=== PATIENT | female | born 1935 | race Caucasian/White ===

== ENCOUNTER 2018-03-26 10:14 | Emergency (ER) | payer MEDICARE, BC, SELFPAY ==
[2018-03-26 10:15] VITALS: BP 136/94; PULSE 152; RESP 18; TEMP 36.6; O2SAT 95; BMI 25.9
[2018-03-26 10:33] VITALS: BP 123/70; PULSE 154
--- NOTE | 2018-03-26 10:39 | RAD_ITS ---
STUDY: X-RAY CHEST REASON FOR EXAM: Female, 82 years old. Tachycardia. History of A. fib TECHNIQUE: Single AP portable view of the chest. COMPARISON: None. FINDINGS: There is hyperinflation of the lungs consistent with chronic obstructive lung disease (COPD). Lungs are clear. Right chest wall Mediport with tip in the mid SVC. There is no demonstrated pleural abnormality. Normal size heart. Normal mediastinum and valerie. Normal visualized pulmonary arteries. Normal visualized aortic arch and descending thoracic aorta. There are diffuse degenerative changes of the visualized thoracic spine. Normal visualized ribs, clavicles, and shoulders. There is no demonstrated abnormality of the visualized soft tissue structures of the upper abdomen. RAD/Chest 1 View (Portable) IMPRESSION: COPD. Lungs are clear. Electronically Signed: Armando Sun DO at 11:18 EST Tel , Service support ,
--- NOTE | 2018-03-26 10:39 | EKG12_ITS ---
Test Reason : PALPS Blood Pressure : / mmHG Vent. Rate : 141 BPM Atrial Rate : 178 BPM P-R Int : 000 ms QRS Dur : 080 ms QT Int : 320 ms P-R-T Axes : 059 -39 070 degrees QTc Int : 490 ms Atrial fibrillation Left axis deviation Possible Anterior infarct , age undetermined Abnormal ECG Confirmed by SHABBIR PANG, REBECCA ([id number]), editor index ZACH HAMILTON ([id number]) on 03/31/2018 4:51:57 PM Referred By: DC Confirmed By:REBECCA SHEA MD
[2018-03-26] MEDS: dilTIAZem 25 MG/5 ML Vial 10 MG IV BOLUS (10:53)
[2018-03-26 11:03] LABS: Absolute Lymphocyte Count 1.47 X10^3/ul (0.83-4.51); Absolute Neutrophil Count 4.1 X10^3/uL (2.0-7.7); Basophil# 0.02 X10^3/uL; Basophil% 0.3 % (0-1); Eosinophil# 0.06 X10^3/uL; Eosinophils% 0.9 % (0-5); Hematocrit 39.5 % (37-47); Hemoglobin 13.1 g/dl (12.0-15.0); Lymphocyte # 1.47 X10^3/ul (4.0); Lymphocyte % 23.1 % (19-41); Mean Corp Hgb Conc 33.2 g/gl (32-36); Mean Corpuscular Hgb 33.9 pg (27.0-32.0); Mean Corpuscular Volume 102.1 fL (81-99); Mean Platelet Vol. 9.9 fl (6.2-12.0); Neutrophil # 4.11 X10^3/uL (2.7-7.7); Neutrophil % 64.5 % (47-70); Platelet Count 190 K/mm3 (150-450); RBC Distribution Width CV 14.4 % (11.6-14.6); RBC Distribution Width SD 53.2 fl (35.1-43.9); Red Blood Count 3.87 M/mm3 (4.2-5.4); White Blood Count 6.4 K/mm3 (4.4-11.0)
[2018-03-26 11:04] LABS: POSITIVE COUNT NO; POSITIVE DIFFERENTIAL NO; POSITIVE MORPHOLOGY NO
--- NOTE | 2018-03-26 11:06 | EKG12_ITS ---
Test Reason : PALPS Blood Pressure : / mmHG Vent. Rate : 099 BPM Atrial Rate : 099 BPM P-R Int : 176 ms QRS Dur : 082 ms QT Int : 374 ms P-R-T Axes : 032 -33 033 degrees QTc Int : 479 ms Normal sinus rhythm Left axis deviation Cannot rule out Anterior infarct , age undetermined Abnormal ECG Confirmed by SHABBIR PANG, REBECCA ([id number]), photograph editor ZACH HAMILTON ([id number]) on 03/31/2018 5:01:29 PM Referred By: DC Confirmed By:REBECCA SHEA MD
[2018-03-26 11:12] LABS: International Normalized Ratio 1.8; Prothrombin Time (Protime)PT. 20.8 SECONDS (11.7-14.9)
[2018-03-26 11:18] LABS: Anion Gap 9 (5-15); BUN 16 mg/dL (7-18); Chloride 111 mmol/L (98-107); Creatinine, Serum 0.73 mg/dL (0.55-1.02); EST Glomerular Filtration Rate 82 mL/min (>60); Est Glom Filt Rate - Afr Amer 99 mL/min (>60); Glucose 153 mg/dL (74-106); Potassium 3.5 mmol/L (3.5-5.1); Sodium Level 145 mmol/L (136-145)
--- NOTE | 2018-03-26 12:16 | ED.VISSUMM ---
- ER Visit Summary Date of Service: 03/26/18 Chief Complaint: Heart racing History of Present Illness: The patient is a 82 F with heart racing. Her is here at this emergency department being seen as a patient. She has been up all night. Her heart is racing. She denies chest pain or shortness of breath. No nausea or vomiting. She did not take her Coumadin or her rate controlling medication last night. Physical Examination: Afebrile and vital signs unremarkable except for heart rate of 152. She is alert and oriented and mentating well. Skin appears normal. Heart irregularly irregular. Lungs clear. Abdomen soft. Test Results: EKG showed atrial fibrillation at a rate of 141. CBC, BMP, troponin unremarkable. INR 1.8. Chest x-ray shows chronic changes. Emergency Department Course and Treatment: Patient treated with fluid bolus and Cardizem. She also received her dose of warfarin. Her rhythm converted to sinus at a rate of 99, confirmed on EKG. No sign of acute ischemia or infarction pattern. Patient is doing well and will be discharged home. Treatment Plan: As above Disposition: Discharge Impression: 1. Atrial fibrillation with RVR This note was generated with [employer] dictation software. It may contain incorrect words, spelling, and punctuation that were not noted in review of the chart prior to signing ED Disposition - Plan for ED Patient: Chief Complaint: Palpitations Referrals: Galina Sainz MD [Primary Care Provider] -
--- NOTE | 2018-03-26 12:24 | ED.DEP ---
ED Disposition - Plan for ED Patient: Chief Complaint: Palpitations Instructions: ED Afib Referrals: Galina Sainz MD [Primary Care Provider] -
[2018-03-26 12:54] VITALS: BP 124/72; PULSE 95; PULSE 96; RESP 17; RESP 18; O2SAT 98
== END 2018-03-26 13:12 | disposition home or self-care (01) ==
PROVIDERS: Emergency Provider Emergency Medicine; Family Provider Internal Medicine; PCP Internal Medicine
DX: I48.91 Unspecified atrial fibrillation (principal); J44.9 Chronic obstructive pulmonary disease, unspecified; G47.33 Obstructive sleep apnea (adult) (pediatric); Z85.828 Personal history of other malignant neoplasm of skin; Z79.01 Long term (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 anticoagulants; Z79.899 Other long term (current) drug therapy
CPT/HCPCS: 36591; 71045; 80048; 84484; 85025; 85610; 93005; 96361; 96374; 99284; J7040; A4216

== ENCOUNTER 2018-12-17 12:45 | Emergency (ER) | payer MEDICARE, BC, SELFPAY ==
[2018-12-17 12:47] VITALS: BP 112/65; PULSE 72; RESP 16; TEMP 36.6; O2SAT 99; BMI 27.3
--- NOTE | 2018-12-17 15:05 | CT_ITS ---
STUDY: CT BRAIN WITHOUT CONTRAST REASON FOR EXAM: Female, 83 years old. Laceration on scalp status post fall and head injury. On Coumadin. RADIATION DOSAGE (If Supplied By Facility): CTDIvol = ( 60.81 ) mGy, DLP = ( 1089.89 ) mGycm TECHNIQUE: Transaxial CT imaging of the brain was performed without administration of intravenous contrast material. Individualized dose optimization techniques were used for this CT. COMPARISON: No relevant priors. FINDINGS: Normal soft tissue structures. Normal calvarium. Normal size ventricles and extra-axial spaces for the patient's age. There are areas of decreased attenuation within the white matter tracts of the supratentorial brain, consistent with microvascular disease changes. Normal basal ganglia and thalami. Normal brainstem. Normal cerebellum. There is no intracranial hemorrhage. There are no findings of an acute ischemic infarction. Normal visualized paranasal sinuses. CT/Brain/Head without Contrast IMPRESSION: No acute disease. Electronically Signed: Jj Singh MD at 16:34 EDT , Service support ,
--- NOTE | 2018-12-17 15:55 | RAD_ITS ---
STUDY: X-RAY - RIGHT WRIST REASON FOR EXAM: Female, 83 years old. Fell and injured right wrist TECHNIQUE: 3 view(s) of the wrist were obtained. COMPARISON: None. FINDINGS: Normal visualized distal radius and ulna. Normal radiocarpal articulation. Normal distal radioulnar articulation. Normal carpal bones. Normal carpal articulations. There is degenerative arthrosis of the carpometacarpal articulation of the thumb. Normal second through fifth carpometacarpal articulations. Cystic changes noted within the proximal row of the carpal bones. Normal visualized metacarpal bones. The soft tissue structures are unremarkable. RAD/Wrist min 3 Views IMPRESSION: Degenerative changes as above. No fracture noted. Electronically Signed: Jj Singh MD at 16:28 EDT , Service support ,
--- NOTE | 2018-12-17 15:59 | ED.VIS.GEN ---
History of Present Illness Chief Complaint: Laceration Informant: Patient Onset: Today Context: Sudden Onset Timing: Continuous Current Severity: Mild Maximum Severity: Moderate Narrative: The patient presents to the emergency department after mechanical fall. The patient has history of atrial fibrillation and is on Coumadin. She states she got out of her shower today. She was standing with her foot on the ledge of the tub to try it. She lost her balance and fell backwards. She struck the back of her head against the countertop. She landed on her right wrist. She did not lose consciousness, but has had a mild headache since. She is also had increasing pain in the right wrist. She does think that her tetanus is up-to-date. She denies other injury. She states the fall was strictly mechanical. Prior similar symptoms: No Recent Illness/Hospitalization: No Past Medical History - Allergies and Home Meds Allergies/Adverse Reactions: Allergies DESMOND Inhibitors Allergy (Verified 12/17/18 12:47) Unknown ERROR adhesive Allergy (Verified 12/17/18 12:47) Unknown cyclobenzaprine HCl [From Flexeril] Allergy (Verified 12/17/18 12:47) Unknown diclofenac sodium [From Arthrotec] Allergy (Verified 12/17/18 12:47) Unknown hydrochlorothiazide Allergy (Verified 12/17/18 12:47) Unknown lisinopril [From Zestril] Allergy (Verified 12/17/18 12:47) Unknown metronidazole [From Flagyl] Allergy (Verified 12/17/18 12:47) Unknown misoprostol [From Arthrotec] Allergy (Verified 12/17/18 12:47) Unknown naproxen Allergy (Verified 12/17/18 12:47) Unknown paroxetine HCl [From Paxil] Allergy (Verified 12/17/18 12:47) Unknown prednisolone acetate [From Blephamide] Allergy (Verified 12/17/18 12:47) Unknown sulfacetamide sodium [From Blephamide] Allergy (Verified 12/17/18 12:47) Unknown Primary Care Physician: Galina Sainz MD [Primary Care Provider] - 10 Day for suture removal Prior records reviewed: Yes Past Medical History: - - Atrial fibrillation Smoking Status: Never smoker Review of Systems General: Denies: Chills, Fever, Sweats Eyes: Denies: Visual changes - bilaterally, Diplopia ENT: Denies: Rhinorrhea, Sore throat Cardiovascular: Denies: Chest pain, Palpitations Respiratory: Denies: Dyspnea, Cough, Dyspnea on exertion Gastrointestinal: Denies: Abdominal pain, Nausea, Vomiting, Diarrhea, Melena, Hematochezia Genitourinary: Denies: Dysuria, Hematuria, Frequency Musculoskeletal: Denies: Back pain, Extremity Pain Skin: Denies: Rash, Wounds Neurological: Denies: Headache, Weakness, Numbness Physical Exam Vital Signs/Narrative: Vital Signs Temp Pulse Resp BP Pulse Ox 12/17/18 12:47 97.9 F 72 16 112/65 99 Inital Vital Signs reviewed: Yes General: Well nourished, Well developed, No Acute Distress Head: Normocephalic, Trauma, - - 1.5 cm full-thickness laceration in the occiput. No step-off. No crepitus. Eyes: Perrl, EOMI ENT: Moist mucous membranes, No rhinorrhea Neck: Supple, Nontender Cardiovascular: Regular rate, Regular rhythm, No murmurs Respiratory: No distress, CTA bilaterally, Chest nontender Abdomen: Soft, Nontender, Nondistended, Normal bowel sounds Back: Nontender, Normal Inspection Extremities: No edema, Tenderness - Tenderness with small hematoma on the dorsum of the right wrist. No gross deformity. Normal pulses. Skin: Normal color, No rash Neurological: Alert, Oriented x3, Cranial nerves II-XII grossly intact, Normal Strength, Normal Sensation Psychological: Normal affect, Normal Mood Diagnostic/Tx/Re-eval Clinical Impression(s) from Imaging Studies Brain CT 12/17/18 15:05 IMPRESSION: No acute disease. Electronically Signed: Jj Singh MD at 16:34 EDT , Service support , Wrist X-Ray 12/17/18 15:55 IMPRESSION: Degenerative changes as above. No fracture noted. Electronically Signed: Jj Singh MD at 16:28 EDT , Service support , Abnormal Lab Results 12/17/18 16:40 PT 28.4 H INR 2.7 - Medical Decision Making The patient underwent CT imaging and x-rays of the wrist. Both were negative for acute process. Her wound was anesthetized and irrigated. It was closed with 3 farhan. She tolerated this without issue. She will continue Tylenol. She was counseled on wound care and reasons to return. The patient will be discharged home. Impression. 1. 2 cm scalp laceration with repair 2. Right wrist contusion Procedures - Lacerations No standard instances Length: 0.79 in Depth: Skin Shape: Linear Prep: Sterile Conditions, Toni-Clens Laceration repair: Irrigated, Lidocaine with epi, Local Number of Sutures/Farhan: 3 ED Disposition - Plan for ED Patient: Instructions: LACERATION, Scalp Referrals: Galina Sainz MD [Primary Care Provider] - 10 Day for suture removal
[2018-12-17] MEDS: Acetaminophen 500 MG Tablet 1000 MG PO (16:30)
[2018-12-17] MEDS: Lidocaine/Epi/Tetracaine 50 ML 1 APPLIC TOPICAL (16:31)
[2018-12-17 16:56] LABS: International Normalized Ratio 2.7; Prothrombin Time (Protime)PT. 28.4 SECONDS (11.7-14.9)
== END 2018-12-17 17:54 | disposition home or self-care (01) ==
LOC: ED 16:00
PROVIDERS: Emergency Medicine; Emergency Provider Emergency Medicine; Family Provider Internal Medicine; PCP Internal Medicine
DX: S01.01XA Laceration without foreign body of scalp, initial encounter (principal); S60.211A Contusion of right wrist, initial encounter; W18.2XXA Fall in (into) shower or empty bathtub, initial encounter; Y93.9 Activity, unspecified; Y92.9 Unspecified place or not applicable; I48.91 Unspecified atrial fibrillation; Z79.01 Long term (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 anticoagulants; Z79.899 Other long term (current) drug therapy
CPT/HCPCS: 12001; 36415; 70450; 73110; 85610; 99283

== ENCOUNTER 2019-08-07 11:48 | Emergency (ER) | payer MEDICARE, BC, SELFPAY ==
[2019-08-07 11:49] VITALS: BP 150/76; PULSE 69; RESP 16; TEMP 36.5; O2SAT 97; BMI 29.2
--- NOTE | 2019-08-07 11:59 | CT_ITS ---
STUDY: CT CERVICAL SPINE WITHOUT CONTRAST REASON FOR EXAM: Female, 84 years old. FALL X1 DAY AGO -- CONTUSIONS TO LEFT SIDE OF FACE RADIATION DOSAGE (If Supplied By Facility): CTDIvol = ( 15.07 ) mGy, DLP = ( 266.22 ) mGycm TECHNIQUE: High resolution transaxial imaging was performed without contrast material. Sagittal and coronal images were reconstructed. Individualized dose optimization techniques were used for this CT. COMPARISON: None FINDINGS: Ossified ossiculum terminale. Normal atlantooccipital articulation. Pronounced narrowing the predental space. Normal lateral atlantoaxial articulations. Degenerative cysts in the anterior aspect of the odontoid process. Normal cervical lordosis. Normal vertebral bodies and posterior osseous elements. C2-3: Normal endplates. Normal disc height and morphology. Normal central canal and intervertebral neuroforamina. C3-4: Normal endplates. Normal disc height and morphology. Normal central canal and intervertebral neuroforamina. C4-5: Normal endplates. Normal disc height. Small posterior marginal spurs. Prominent right posterior marginal spurs encroaching on the neural foramen. This is causing moderate stenosis of the right intervertebral neural foramen. Normal central canal and left intervertebral neural foramen. C5-6: Normal endplates. Mild disc space narrowing. Small anterior marginal spurs. Normal central canal and intervertebral neural foramina. C6-7: Normal endplates. Mild disc space height narrowing. Normal central canal and intervertebral neural foramina. C7-T1: Normal endplates. Normal disc height and morphology. Normal central canal and intervertebral neuroforamina. Normal visualized soft tissue structures. CT/Spine Cervical without Contras IMPRESSION: 1. No CT evidence of acute fracture or malalignment of the cervical spine and the craniocervical junction. 2. Moderate stenosis of the right C4-C5 intervertebral neural foramen due to prominent right posterior marginal spurs. 3. Moderate C6-C7 disc space narrowing. 4. Prominent right anterior marginal spur extending anteriorly to the right side of the esophagus. 5. Prominent anterior marginal spur C5-C6 disc level causing mild displacement of the cervical esophagus. Electronically Signed: Benjamin Cash MD at 13:53 EDT , Service support ,
--- NOTE | 2019-08-07 11:59 | CT_ITS ---
STUDY: CT BRAIN WITHOUT CONTRAST REASON FOR EXAM: Female, 84 years old. FALL X1 DAY AGO -- CONTUSIONS TO LEFT SIDE OF FACE RADIATION DOSAGE (If Supplied By Facility): CTDIvol = ( 44.99 ) mGy, DLP = ( 812.98 ) mGycm TECHNIQUE: Transaxial CT imaging of the brain was performed without administration of intravenous contrast material. Coronal and sagittal reconstructions were performed. Individualized dose optimization techniques were used for this CT. COMPARISON: CT head without contrast 12/17/2018. FINDINGS: Left inferior periorbital soft tissue emphysema but no acute fractures of the left orbital fossa. There is an old blowout fracture of the left medial orbital wall. Normal calvarium. Normal size ventricles and extra-axial spaces for the patient''s age. Small areas of hypodensities in the white matter of the cerebral hemispheres are chronic white matter ischemic changes and unchanged. Normal basal ganglia and thalami. Normal brainstem. Normal cerebellum. There is no intracranial hemorrhage. There are no findings of an acute ischemic infarction. Normal visualized paranasal sinuses. CT/Brain/Head without Contrast IMPRESSION: 1. No CT evidence of intracranial bleeding, acute ischemic infarct or acute intracranial abnormality. 2. Left inferior periorbital soft tissue emphysema but no acute fractures of the left orbital fossa. There is, however, an old blowout fracture of the left medial orbital wall. Electronically Signed: Benjamin Cash MD at 12:55 EDT , Service support ,
--- NOTE | 2019-08-07 11:59 | CT_ITS ---
STUDY: CT FACIAL BONES WITHOUT CONTRAST REASON FOR EXAM: Female, 84 years old. FALL X1 DAY AGO -- CONTUSIONS TO LEFT SIDE OF FACE RADIATION DOSAGE (If Supplied By Facility): CTDIvol = ( 29.38 ) mGy, DLP = ( 562.15 ) mGycm TECHNIQUE: The patient was scanned in a multi detector CT scanner. Sagittal and coronal images were reconstructed. Individualized dose optimization techniques were used for this CT. COMPARISON: None. FINDINGS: Normal soft tissue structures. Left inferior periorbital soft tissue air emphysema and left medial orbital wall air emphysema. They are secondary to an acute blowout fracture of the left medial orbital wall. The orbital floor is intact. No other acute fractures of the maxillofacial bones. The mandible is intact. Normal nasal bones and anterior nasal spine. Deformity in the left posterior ethmoid sinus due to acute blowout fracture of the left medial orbital wall. The paranasal sinuses are otherwise normal. CT/Sinus/Facial Bone IMPRESSION: 1. Acute blowout fracture of the left medial orbital wall causing left orbital emphysema. 2. No other acute fractures of the maxillofacial bones. Electronically Signed: Benjamin Cash MD at 13:33 EDT , Service support ,
--- NOTE | 2019-08-07 12:01 | ED.VIS.GEN ---
History of Present Illness Chief Complaint: Fall Informant: Patient Onset: Yesterday Narrative: Patient states that yesterday evening she is carrying a laundry basket turn off the light and tripped and fell. Struck her face on the hard ground. No loss of conscious. She is on Coumadin for A. fib. Last INR was 2.3 and she checks it at home. She broke her glasses. She notes a headache and some neck stiffness particularly some neck pain the midline to the right. Painful to drive on the way here. She notes tenderness along the left periorbital region and mandible. She denies any dental pain. She had a bloody nose but states that is better. Past Medical History - Allergies and Home Meds Allergies/Adverse Reactions: Allergies DESMOND Inhibitors Allergy (Verified 08/07/19 11:49) Unknown ERROR adhesive Allergy (Verified 08/07/19 11:49) Unknown cyclobenzaprine HCl [From Flexeril] Allergy (Verified 08/07/19 11:49) Unknown diclofenac sodium [From Arthrotec] Allergy (Verified 08/07/19 11:49) Unknown hydrochlorothiazide Allergy (Verified 08/07/19 11:49) Unknown lisinopril [From Zestril] Allergy (Verified 08/07/19 11:49) Unknown metronidazole [From Flagyl] Allergy (Verified 08/07/19 11:49) Unknown misoprostol [From Arthrotec] Allergy (Verified 08/07/19 11:49) Unknown naproxen Allergy (Verified 08/07/19 11:49) Unknown paroxetine HCl [From Paxil] Allergy (Verified 08/07/19 11:49) Unknown prednisolone acetate [From Blephamide] Allergy (Verified 08/07/19 11:49) Unknown sulfacetamide sodium [From Blephamide] Allergy (Verified 08/07/19 11:49) Unknown Primary Care Physician: Justice Scott MD [STAFF PHYSICIAN] - (call to arrange follow up for the middle of next week) Smoking Status: Never smoker Review of Systems General: Denies: Chills, Fever, Sweats Eyes: Denies: Visual changes - bilaterally, Diplopia ENT: Reports: - - facial pain. Denies: Rhinorrhea, Sore throat Cardiovascular: Denies: Chest pain, Palpitations Respiratory: Denies: Dyspnea, Cough, Dyspnea on exertion Gastrointestinal: Denies: Abdominal pain, Nausea, Vomiting, Diarrhea, Melena, Hematochezia Genitourinary: Denies: Dysuria, Hematuria, Frequency Musculoskeletal: Reports: Neck pain. Denies: Back pain, Extremity Pain Skin: Denies: Rash, Wounds Neurological: Reports: Headache. Denies: Weakness, Numbness Physical Exam Vital Signs/Narrative: Vital Signs Temp Pulse Resp BP Pulse Ox 08/07/19 11:49 97.7 F L 69 16 150/76 H 97 Inital Vital Signs reviewed: Yes General: Well nourished, Well developed, No Acute Distress Head: Normocephalic, Trauma - There is a large amount of swelling and contusion in the left periorbital region extending down onto the left maxillofacial area. There is associated abrasions. Eyes: Perrl, EOMI, - - There is no hyphema or subconjunctival hemorrhage. ENT: Moist mucous membranes, No rhinorrhea, - - No septal hematoma. There is no malocclusion. Neck: Supple, - - Tender to palpation in the midline and right paraspinal musculature. Cardiovascular: Regular rate, Regular rhythm, No murmurs Respiratory: No distress, CTA bilaterally, Chest nontender Abdomen: Soft, Nontender, Nondistended, Normal bowel sounds Back: Nontender, Normal Inspection Extremities: Nontender, No edema Skin: Normal color, No rash Neurological: Alert, Oriented x3, Cranial nerves II-XII grossly intact, Normal Strength, Normal Sensation Psychological: Normal affect, Normal Mood Diagnostic/Tx/Re-eval - Medical Decision Making CT brain showed no intracranial hemorrhage. CT of the neck showed no acute neck fracture. CT of the facial bones demonstrates a acute blowout fracture of the left medial orbital wall causing some orbital emphysema. No other fractures were noted. Please see the radiologist dictation for that. The patient sees Dr. Scott. He is java j2ee application developer this week and I spoke with him. He is happy to follow-up with her in the middle of next week. She is to call him if any vision changes occur. He would like her to be placed on Keflex. She will check her INR on Friday. ED Disposition - Plan for ED Patient: Disposition: Home or Assisted Living Diagnosis: Anticoagulated on Coumadin, Fall, Closed medial orbital wall fracture, Facial contusion Instructions: ED BLOWOUT FRACTURE Prescriptions: Cephalexin [Keflex] 500 mg PO Q6 #28 cap Prescription Printed Referrals: Justice Scott MD [STAFF PHYSICIAN] - (call to arrange follow up for the middle of next week) Additional Instructions: Dr. Scott wanted to relay to you that should you have any problems with your vision or feel like something is worsening to please call the office and they can get you instructions on how to speak with him.
[2019-08-07 14:26] VITALS: RESP 18; O2SAT 98
== END 2019-08-07 14:38 | disposition home or self-care (01) ==
PROVIDERS: Emergency Provider Emergency Medicine; PCP Internal Medicine
DX: S02.832A Fracture of medial orbital wall, left side, initial encounter for closed fracture (principal); R04.0 Epistaxis; M43.6 Torticollis; M54.2 Cervicalgia; W01.10XA Fall on same level from slipping, tripping and stumbling with subsequent striking against unspecified object, initial encounter; Y93.E2 Activity, laundry; Y92.9 Unspecified place or not applicable; Y99.9 Unspecified external cause status; I48.91 Unspecified atrial fibrillation; Z79.01 Long term (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 anticoagulants; Z79.899 Other long term (current) drug therapy; Z88.8 Allergy status to other drugs, medicaments and biological substances; Z88.1 Allergy status to other antibiotic agents
CPT/HCPCS: 70450; 70486; 72125; 99282

== ENCOUNTER → 2019-12-23 09:00 | Outpatient (CLI) | payer MEDICARE, BC, SELFPAY | PROVIDERS: PCP Internal Medicine; Referring Provider Internal Medicine; Visit Provider Internal Medicine | DX: Z20.828 Contact with and (suspected) exposure to other viral communicable diseases (principal); R50.9 Fever, unspecified; R19.7 Diarrhea, unspecified; R05 Cough | CPT/HCPCS: 87635; C9803; U0003 ==

== ENCOUNTER 2020-05-05 18:57 | Emergency (ER) | payer MEDICARE, BC, SELFPAY ==
[2020-05-05 18:57] VITALS: BP 143/63; PULSE 82; RESP 18; TEMP 36.3; O2SAT 97; BMI 29.5
--- NOTE | 2020-05-05 19:20 | US_ITS ---
STUDY: VENOUS DOPPLER ULTRASOUND - LEFT LOWER EXTREMITY REASON FOR EXAM: Female, 84 years old. LT LEG SWELLING WHICH HAS GONE DOWN. TECHNIQUE: Ultrasound evaluation of the deep vein system to include flores-scale imaging and compression was performed. Flores-scale imaging and Doppler sonographic evaluation, including duplex spectral analysis and qualitative color flow sonography, was performed. COMPARISON: None. FINDINGS: Common Femoral Vein: Normal compression, spontaneity and augmentation. Normal color Doppler. Common Femoral Vein/Greater Saphenous Junction: Normal compression Deep Femoral Vein: Not visualized Femoral Proximal: Normal compression Femoral Middle: Normal compression, spontaneity and augmentation. Normal color Doppler. Femoral Distal: Normal compression Popliteal Vein: Normal compression, spontaneity and augmentation. Normal color Doppler. Posterior Tibial Vein: Normal compression Peroneal Vein: Normal compression US/Venous Duplex Imag/Limited/Uni IMPRESSION: Normal venous Doppler ultrasound of the lower extremity. Electronically Signed: Debby Jiménez MD at 21:06 EST , Service support ,
--- NOTE | 2020-05-05 19:28 | ED.VISSUMM ---
- ER Visit Summary Date of Service: 05/05/20 Chief Complaint: Left leg swelling History of Present Illness: The patient is a 84 F presenting with left leg swelling. Patient states this started around 4 days ago. She noticed swelling of her left ankle. She denies injury. She states that her ankle swelling is actually much improved now compared to the last couple of days. She saw her primary care physician today and they sent outpatient blood work. Her D-dimer was elevated and she was advised to come to the ED for evaluation. She denies chest pain or shortness of breath. She is on Coumadin for history of A. fib. Physical Examination: Vitals are stable. Patient is afebrile. Alert no acute distress. HEENT exam is unremarkable. Neck is supple. Lungs are clear and equal bilaterally. Heart is regular rate and rhythm. Extremities mild swelling left ankle with no tenderness. Normal pulses. No warmth or erythema. Active full range of motion. Skin is warm and dry. No focal neurologic deficit. Remainder of exam is unremarkable. Emergency Department Course and Treatment: INR 3.3. Venous Doppler left lower extremity shows normal venous Doppler ultrasound of the lower extremity. Patient is advised to follow-up with her primary care physician. Advised return to ED for worsening complaints. Disposition: Discharge home Impression: Mild left lower extremity swelling This note was generated with [employer] dictation software. It may contain incorrect words, spelling, and punctuation that were not noted in review of the chart prior to signing ED Disposition - Plan for ED Patient: Instructions: ED Peripheral Edema, Unilateral Referrals: Galina Sainz MD [Primary Care Provider] -
[2020-05-05 19:58] LABS: International Normalized Ratio 3.3; Prothrombin Time (Protime)PT. 33.2 SECONDS (11.7-14.9)
--- NOTE | 2020-05-05 21:08 | ED.DEP ---
ED Disposition - Plan for ED Patient: Instructions: ED Peripheral Edema, Unilateral Referrals: Galina Sainz MD [Primary Care Provider] -
== END 2020-05-05 21:21 | disposition home or self-care (01) ==
PROVIDERS: Emergency Provider Emergency Medicine; PCP Internal Medicine
DX: M79.89 Other specified soft tissue disorders (principal); I48.91 Unspecified atrial fibrillation; R60.0 Localized edema; R06.9 Unspecified abnormalities of breathing; R79.89 Other specified abnormal findings of blood chemistry; Z79.01 Long term (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 anticoagulants; Z79.899 Other long term (current) drug therapy
CPT/HCPCS: 36415; 83880; 85379; 85610; 93971; 99282

== ENCOUNTER → 2020-05-05 | Outpatient (CLI) | payer MEDICARE, BC, SELFPAY ==
[2020-05-05 16:57] LABS: BNP,B-Type NATRIURETIC PEPTIDE 77.1 pg/mL (0-100)
[2020-05-05 17:39] LABS: D-Dimer Quantitative (DVT/PE) 2.06 FEU/ug/m (0.27-0.49)
== END | disposition home or self-care (01) ==
LOC: LABSPEC 16:00
PROVIDERS: PCP Internal Medicine; Referring Provider Nurse Practitioner; Visit Provider Nurse Practitioner
DX: R60.0 Localized edema (principal); R06.9 Unspecified abnormalities of breathing
CPT/HCPCS: 83880; 85379

== ENCOUNTER 2021-07-02 23:21 | Emergency (ER) | payer MEDICARE, BC, SELFPAY ==
[2021-07-02 23:21] VITALS: BP 114/51; PULSE 67; RESP 17; TEMP 36.2; O2SAT 99; BMI 28.4
--- NOTE | 2021-07-02 23:57 | ED.VIS.GI ---
HPI HPI - GI History of Present Illness Chief Complaint: Abd Pain Informant: patient Abdominal Pain/Flank Pain Onset: Days Context: Gradual Onset Timing: Intermittent Quality: Aching Location: RUQ Current Severity: Mild Maximum Severity: Mild Worsened by: Food Relieved by: Nothing Nausea/Vomiting/Emesis GI Symptom: Positive for Nausea; Negative for Vomiting Onset: Today and Days Severity: Mild Diarrhea/Melena/Hematochezia GI Symptom: Negative for Diarrhea, Melena and Hematochezia Associated Symptoms Associated Symptoms: Negative for Dysuria, Frequency and Hematuria Narrative Narrative: 85-year-old female known history of gallstones. Also history of A. fib on Coumadin. Prior appendectomy. Prior oophorectomy. Prior partial bowel resection due to diverticulitis. History of prior breast cancer with bilateral mastectomies. States her last several day starting Friday night she has had abdominal pain which is primarily right upper quadrant. Associated nausea without vomiting nor diarrhea. She initially was on Macrobid for a UTI recently but urine culture came back negative so they stopped her antibiotic. She said after she ate her pain got worse on Friday and again today. Says she has had increasing belching. She has had bowel movements. A low-grade temperature 99.4. Prior similar symptoms: No Recent Illness/Hospitalization: No PFSH PFS Medical History (Updated 07/03/21 @ 04:[address] Ronak Alexandre MD) Breast CA Home Medications L.acidoph, paracasei,B. lactis 1 ea PO DAILY 08/30/14 [History Last Taken Unknown] acetaminophen 1,000 mg PO Q4H PRN PRN 08/30/14 [History Last Taken Unknown] calcium citrate-vitamin D3 1 ea PO BID 08/30/14 [History Last Taken Unknown] docusate sodium [Colace] 100 mg PO DAILY PRN 08/30/14 [History Last Taken Unknown] estradiol [Estrace Vaginal Cream] 1 g VAGINAL QODAY 08/30/14 [History Last Taken Unknown] folic acid 1 mg PO DAILY@0800 08/30/14 [History Last Taken Unknown] gabapentin 600 mg PO DAILY 08/30/14 [History Last Taken Unknown] methotrexate sodium 20 mg PO Q7D 08/30/14 [History Last Taken Unknown] methylcellulose 4000cps (bulk) 2 tab PO DAILY 08/30/14 [History Last Taken Unknown] metoprolol tartrate 25 mg PO BID 08/30/14 [History Last Taken Unknown] multivitamin with folic acid [Thera] 1 tab PO DAILY 08/30/14 [History Last Taken Unknown] tramadol 50 mg PO Q6H PRN PRN 08/30/14 [History Last Taken Unknown] warfarin [Coumadin ([facility])] 1 mg PO SUMOWETHSA 08/30/14 [History Last Taken Unknown] warfarin [Coumadin] 1.5 mg PO TUFR 08/30/14 [History Last Taken Unknown] atorvastatin 10 mg PO QHS 03/26/18 [History Last Taken Unknown] biotin 5 mg PO DAILY 03/26/18 [History Last Taken Unknown] diclofenac sodium [Voltaren] 100 g TP 03/26/18 [History Last Taken Unknown] melatonin 10 mg PO QHS 03/26/18 [History Last Taken Unknown] tamoxifen 20 mg PO DAILY 03/26/18 [History Last Taken Unknown] triamcinolone acetonide [Nasacort Aq Nasal [place]] 2 spray NASAL DAILY 03/26/18 [History Last Taken Unknown] turmeric root extract 500 mg PO DAILY 03/26/18 [History Last Taken Unknown] cephalexin 500 mg PO Q6 #28 cap 08/07/19 [Rx Last Taken Unknown] Allergy/AdvReac Type Severity Reaction Status Date / Time DESMOND Inhibitors Allergy Unknown Verified 07/02/21 23:24 adhesive Allergy Unknown Verified 07/02/21 23:24 cyclobenzaprine HCl Allergy Unknown Verified 07/02/21 23:24 [From Flexeril] diclofenac sodium Allergy Unknown Verified 07/02/21 23:24 [From Arthrotec] hydrochlorothiazide Allergy Unknown Verified 07/02/21 23:24 lisinopril [From Zestril] Allergy Unknown Verified 07/02/21 23:24 metronidazole [From Flagyl] Allergy Unknown Verified 07/02/21 23:24 misoprostol [From Arthrotec] Allergy Unknown Verified 07/02/21 23:24 naproxen Allergy Unknown Verified 07/02/21 23:24 paroxetine HCl [From Paxil] Allergy Unknown Verified 07/02/21 23:24 prednisolone acetate Allergy Unknown Verified 07/02/21 23:24 [From Blephamide] sulfacetamide sodium Allergy Unknown Verified 07/02/21 23:24 [From Blephamide] Surgical History (Updated 07/03/21 @ 00:33 by Rocky Mejia) H/O mastectomy Social History Smoking Status: Never smoker ROS ROS ED ROS Narrative Abdominal pain. Nausea. Review of Systems ROS Unobtainable: Denies due to encephalopathy Constitutional Constitutional ED: Reports fever(s) and subjective ENT ENT ED: Denies ear pain Cardiovascular Cardiovascular: Denies chest pain Respiratory/Chest Respiratory/Chest: Denies dyspnea Gastrointestinal Gastrointestinal: Reports abdominal pain and nausea; Denies constipation, diarrhea or vomiting Genitourinary Genitourinary ED: Denies dysuria Musculoskeletal Musculoskeletal: Denies myalgias Integumentary Denies rash Neurologic Neurologic: Denies headache(s) Psychiatric Psychiatric: Denies depression Endocrine Endocrinology: Denies polyuria Hematologic/Lymphatic Hematologic/Lymphatic: Denies easy bruising Allergic/Immunologic Allergic/Immunologic ED: Denies urticaria EXAM Physical Exam Narrative Exam Narrative: 85-year-old female no acute distress. Vital signs stable afebrile. H EENT exam unremarkable. Moist extremities. Lungs are clear. Heart regular rate about 67. No murmur. Abdomen soft nondistended. Tender in the right upper quadrant. No organomegaly or masses. No peritoneal signs. Right lower quadrant left side are unremarkable. Moving all 4 extremities. Nontender no edema. Neurologically awake and alert. No focal motor deficits. Const Vital Signs: 07/02/21 23:21 07/03/21 03:13 Temperature 97.2 F L Temperature Source Temporal Pulse Rate 67 64 Respiratory Rate 17 16 Blood Pressure 114/51 L 117/57 L Blood Pressure Mean 72 77 Pulse Ox 99 96 Oxygen Delivery Method Room Air Room Air Positive well nourished and well developed; Negative for cachectic, contractures or unkempt General Appearance ED: well developed and NAD; Negative for unkempt, cachectic, contractures or pallor Nutritional Appearance: Negative for cachectic HEENT Reports moist mucous membranes normocephalic and atraumatic; Negative for trauma or tenderness Eyes PERRL and EOMs intact bilaterally General Eye ED: Negative for pale conjunctiva or scleral icterus Neck no lymphadenopathy, supple and no JVD Resp normal respiratory effort and clear to auscultation bilaterally Auscultation: Negative for rales, rhonchi or wheezes Cardio regular rate, regular rhythm, S1 normal heart sound, S2 normal heart sound and no murmurs GI non-distended and no masses; Negative for non-tender Inspection: Negative for abdominal distention Auscultation: normoactive bowel sounds; Negative for hyperactive bowel sounds or hypoactive bowel sounds Palpation: soft and tender; Negative for guarding, rigid or rebound tenderness present Back/Spine no CVA tenderness General Back: Negative for CVA tenderness Extremity full ROM General Extremety ED: Negative for edema or tenderness General Extremity: Negative for edema Neuro Sensorium / Orientation: alert, oriented to person, oriented to place and oriented to time; Negative for orientation impaired Motor Exam: strength 5/5 throughout Psych mental status grossly normal and thought process normal Appearance: Negative for unkempt Skin no wounds General Skin Exam: Negative for jaundice or pallor Lesions: no lesions Rashes: no rashes MDM MDM MDM Narrative Medical decision making narrative: 85-year-old with abdominal pain primarily right upper quadrant consistent with possible biliary colic, obstruction or cholecystitis. CAT scan and labs are being obtained. Patient states she took Tylenol at home. Her pain is resolved. She does not want any thing for pain at this time. Multiple repeat exams patient's abdomen remains benign. There are no peritoneal signs. She been given nothing for pain here. Repeat exam at 4:40 AM her abdomen is benign. She is pain-free. We discussed all of her test results. I discussed with her being admitted and being evaluated by a surgeon. She sees Dr. Javier Turk of the [facility]. She wants to follow-up with him and does not want to be admitted. She knows to return if she has increasing pain, fever or vomiting. We discussed her gallstones and this was most likely a gallbladder attack. She may need a cholecystectomy or even an ERCP if she gets gallstones lodged in the duct. She understand this and wants to be discharged. Lab Data Attestation: I reviewed the patient's lab results. Lab results narrative: CBC shows a white count 9.7. H&H 9.3 and 29.2. Platelets of 160. Electrolytes unremarkable gap of 6 normal BUN and creatinine. Glucose 114. Liver enzymes total bilirubin elevated 2.3. Direct elevated 1.82. Alk phos elevated at 143. AST of 87. Lipase is normal at 260. Patient did tell me she recently had elevated liver enzymes from medication she had been on. Her PT/INR is elevated at 35 and 3.6. She will be told to hold her Coumadin and have it rechecked this week before restarting it. Labs: Laboratory Results - last 24 hr 07/03/21 07/03/21 07/03/21 00:26 00:26 01:23 WBC 9.7 RBC 3.10 L Hgb 9.3 L Hct 29.2 L MCV 94.2 MCH 30.0 MCHC 31.8 L RDW Std Deviation 54.8 H RDW Coeff of Laureen 15.9 H Plt Count 160 MPV 9.2 Immature Gran % (Auto) 0.500 Neut % (Auto) 77.6 H Lymph % (Auto) 9.9 L [place] % (Auto) 10.2 H Eos % (Auto) 1.4 Baso % (Auto) 0.4 Absolute Neuts (auto) 7.5 Absolute Lymphs (auto) 0.96 Nucleated RBC % 0 PT INR Sodium 137 Potassium 4.0 Chloride 106 Carbon Dioxide 25.0 Anion Gap 6 BUN 11 Creatinine 0.85 Estim Creat Clear Calc 46.12 Est GFR (MDRD) Af Amer 81 Est GFR (MDRD) Non-Af 67 BUN/Creatinine Ratio 12.9 Glucose 114 H Calcium 8.7 Total Bilirubin 2.30 H Direct Bilirubin 1.82 H AST 87 H ALT 49 Alkaline Phosphatase 143 H Total Protein 7.5 Albumin 2.6 L Globulin 4.9 H Lipase 260 Urine Color Yellow Urine Clarity Clear Urine pH 7.0 Ur Specific [place] 1.010 Urine Protein 15 H Urine Glucose (UA) Normal Urine Ketones Negative Urine Occult Blood 10 H Urine Nitrite Negative Urine Bilirubin Negative Urine Urobilinogen 1 H Ur Leukocyte Esterase 500 H Urine RBC 0-5 SEEN Urine WBC 5-10 SEEN Ur Squamous Epith Cells 0 SEEN Urine Bacteria 2+ Urine Mucus 0 SEEN 07/03/21 03:50 WBC RBC Hgb Hct MCV MCH MCHC RDW Std Deviation RDW Coeff of Laureen Plt Count MPV Immature Gran % (Auto) Neut % (Auto) Lymph % (Auto) [place] % (Auto) Eos % (Auto) Baso % (Auto) Absolute Neuts (auto) Absolute Lymphs (auto) Nucleated RBC % PT 35.3 H INR 3.6 Sodium Potassium Chloride Carbon Dioxide Anion Gap BUN Creatinine Estim Creat Clear Calc Est GFR (MDRD) Af Amer Est GFR (MDRD) Non-Af BUN/Creatinine Ratio Glucose Calcium Total Bilirubin Direct Bilirubin AST ALT Alkaline Phosphatase Total Protein Albumin Globulin Lipase Urine Color Urine Clarity Urine pH Ur Specific [place] Urine Protein Urine Glucose (UA) Urine Ketones Urine Occult Blood Urine Nitrite Urine Bilirubin Urine Urobilinogen Ur Leukocyte Esterase Urine RBC Urine WBC Ur Squamous Epith Cells Urine Bacteria Urine Mucus Radiography Diagnostic Testing: Clinical Impression(s) from Imaging Studies Abdomen/Pelvis CT 07/03/21 23:56 IMPRESSION: There are multiple stones in the gallbladder. The appendix is not well visualized however there is stranding in the right flank. Electronically Signed: Manav Rai MD at 1:33 EDT , Discharge Plan Triage Chief Complaint: Abd Pain ED Provider: Ronak Alexandre Dx/Rx/DC Orders Clinical Impression: Abdominal pain, Biliary colic, History of gallstones, History of cirrhosis Instructions: Abdominal Pain, ED Gallstones with Biliary Colic Prescriptions: No Action gabapentin 600 MG tablet 600 mg PO DAILY RF: 0 tramadol 50 MG tablet 50 mg PO Q6H PRN PRN (Reason: Pain) RF: 0 acetaminophen 500 MG tablet 1,000 mg PO Q4H PRN PRN (Reason: Not Specified) RF: 0 warfarin [Jantoven] 3 MG tablet 1 mg PO SUMOWETHSA RF: 0 methotrexate sodium 2.5 MG tablet 20 mg PO Q7D RF: 0 metoprolol tartrate 50 MG tablet 25 mg PO BID RF: 0 docusate sodium [DOK] 100 MG capsule 100 mg PO DAILY PRN (Reason: Constipation) RF: 0 folic acid 1 MG tablet 1 mg PO DAILY@0800 RF: 0 warfarin [Jantoven] 1 MG tablet 1.5 mg PO TUFR RF: 0 estradiol [Estrace] 42.5 GM Cream.Appl 1 g vaginal QODAY RF: 0 methylcellulose 4000cps (bulk) 500 MG tablet 2 tab PO DAILY RF: 0 calcium citrate-vitamin D3 1 EACH tablet 1 ea PO BID RF: 0 multivitamin with folic acid [Thera] 1 TABLET tablet 1 tab PO DAILY RF: 0 L.acidoph, paracasei,B. lactis 1 EACH capsule 1 ea PO DAILY RF: 0 atorvastatin 10 MG tablet 10 mg PO QHS RF: 0 triamcinolone acetonide [Nasal Allergy] 1 SPRAY Nasal.Sry 2 spray NASAL DAILY RF: 0 tamoxifen 20 MG tablet 20 mg PO DAILY RF: 0 biotin 5 MG tablet 5 mg PO DAILY RF: 0 diclofenac sodium [Voltaren] 100 GM Gel..Gram. 100 g TP RF: 0 turmeric root extract 500 MG capsule 500 mg PO DAILY RF: 0 melatonin 10 MG tablet 10 mg PO QHS RF: 0 cephalexin 500 MG capsule 500 mg PO Q6 Qty: 28 RF: 0 Primary Care Provider: Galina Sainz Referrals: Galina Sainz MD [Primary Care Provider] - Johnny Turk MD [STAFF PHYSICIAN] - As soon as possible Activity Restrictions/Additional Instructions: Call and follow-up with Dr. Javier Turk's soon as possible. If you develop increasing pain, fever, vomiting or feeling worse return. Avoid fatty and greasy foods they may irritate your gallbladder. Also avoid chocolate and cabbage. Your Coumadin level was elevated tonight with an INR 3.6. Hold your Coumadin today. You need to have your level rechecked either Friday or before you restart it. Disposition Disposition: Home, Self Care
[2021-07-03 00:33] LABS: Absolute Lymphocyte Count 0.96 X10^3/uL (0.83-4.51); Absolute Neutrophil Count 7.5 X10^3/uL (2.0-7.7); Basophil# 0.04 X10^3/uL; Basophil% 0.4 % (0-1); Eosinophil# 0.14 X10^3/uL; Eosinophils% 1.4 % (0-5); Hematocrit 29.2 % (37-47); Hemoglobin 9.3 g/dL (12.0-15.0); Lymphocyte # 0.96 X10^3/ul (0.83-4.51); Lymphocyte % 9.9 % (19-41); Mean Corp Hgb Conc 31.8 g/dL (32-36); Mean Corpuscular Volume 94.2 fL (81-99); Mean Platelet Vol. 9.2 fl (6.2-12.0); Monocyte# 0.99 X10^3/uL; Monocyte% 10.2 % (0-10); NRBC Flagged by Analyzer 0 % (0-5); Neutrophil # 7.51 X10^3/uL (2.7-7.7); Neutrophil % 77.6 % (47-70); Platelet Count 160 K/mm3 (150-450); RBC Distribution Width CV 15.9 % (11.6-14.6); RBC Distribution Width SD 54.8 fl (35.1-43.9); White Blood Count 9.7 K/mm3 (4.4-11.0)
[2021-07-03] MEDS: 0.9% Normal Saline 1,000 ML 125 ML IV (00:39)
[2021-07-03 00:50] LABS: AST(SGOT) 87 U/L (15-37); Alanine Aminotransfer ALT/SGPT 49 U/L (13-56); Albumin, Serum 2.6 g/dL (3.2-5.0); Alkaline Phosphatase 143 U/L (45-117); Anion Gap 6 (5-15); BUN 11 mg/dL (7-18); BUN/Creat Ratio 12.9 RATIO (10-20); Bilirubin, Direct 1.82 mg/dL (0.00-0.30); Calcium,Total 8.7 mg/dL (8.5-10.1); Chloride 106 mmol/L (98-107); Creatinine, Serum 0.85 mg/dL (0.55-1.02); EST Glomerular Filtration Rate 67 mL/min (>60); Est Glom Filt Rate - Afr Amer 81 mL/min (>60); Estimated Creatinine Clearance 46.12 ml/min; Globulin 4.9 g/dL (2.2-4.2); Glucose 114 mg/dL (74-106); Lipase 260 U/L (73-393); Protein, Total 7.5 g/dL (6.4-8.2); Sodium Level 137 mmol/L (136-145)
[2021-07-03 01:29] LABS: Color, Urine Yellow (Yellow); Glucose, Dipstick Normal (Normal); Ketone-Dipstick Negative (Negative); Leukocyte Esterase-Dipstick 500 /ul (Negative); Mucous, Urine 0 SEEN /hpf (<or=2+); Nitrite-Dipstick Negative (Negative); Occult Blood-Urine 10 /ul (Negative); Protein-Dipstick 15 mg/dl (Negative); Squamous Epithelial Cells - UA 0 SEEN /hpf (5-10); Urine Bilirubin Dipstick Negative (Negative); Urine Clarity Clear (Clear); Urine Urobilinogen 1 mg/dl (Normal)
[2021-07-03 01:35] LABS: Bacteria 2+ /hpf (None Seen); Red Blood Cells-Urine 0-5 SEEN /hpf (0-5); White Blood Cells 5-10 SEEN /hpf (0-5)
[2021-07-03 03:13] VITALS: BP 117/57; PULSE 64; RESP 16; O2SAT 96
[2021-07-03 04:09] LABS: International Normalized Ratio 3.6; Prothrombin Time (Protime)PT. 35.3 SECONDS (11.7-14.9)
[2021-07-03 04:44] VITALS: BP 119/64; PULSE 69; RESP 18; O2SAT 96
--- NOTE | 2021-07-03 23:56 | CT_ITS ---
STUDY: CT ABDOMEN AND PELVIS WITH CONTRAST REASON FOR EXAM: Female, 85 years old. right sided abd pain RADIATION DOSAGE (If Supplied By Facility): CTDIvol = ( 14.55 ) mGy, DLP = ( 970.75 ) mGycm TECHNIQUE: Transaxial images were obtained from the dome of the diaphragm to the symphysis pubis without oral contrast. IV 100mL Isovue-370 was administered. Sagittal and coronal images were reconstructed. Individualized dose optimization techniques were used for this CT. COMPARISON: None. FINDINGS: The visualized lung bases are unremarkable. The visualized portions of the heart are within normal limits. Normal liver. There are stones in the gallbladder. Normal spleen. Normal pancreas. Normal bilateral adrenal glands. Normal right kidney. Normal left kidney. Normal visualized stomach. Normal small intestine. There are postsurgical changes in the rectum. The appendix is visualized and appears normal. Normal abdominal aorta. Normal inferior vena cava. Normal retroperitoneum. Normal urinary bladder. Normal abdominal wall. Normal osseous structures. CT/Abdomen/Pelvis W IV Cont ONLY IMPRESSION: There are multiple stones in the gallbladder. The appendix is not well visualized however there is stranding in the right flank. Electronically Signed: Manav Rai MD at 1:33 EDT ,
== END 2021-07-03 04:59 | disposition home or self-care (01) ==
PROVIDERS: Emergency Provider Emergency Medicine; PCP Internal Medicine; Visit Provider Emergency Medicine
DX: K80.50 Calculus of bile duct without cholangitis or cholecystitis without obstruction (principal); I48.91 Unspecified atrial fibrillation; Z79.01 Long term (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 anticoagulants; Z85.3 Personal history of malignant neoplasm of breast; Z90.13 Acquired absence of bilateral breasts and nipples; Z79.899 Other long term (current) drug therapy
CPT/HCPCS: 36591; 74177; 80048; 80076; 81001; 83690; 85025; 85610; 96360; 96361; 99282; J7030; Q9967; A4216

== ENCOUNTER → 2021-07-16 | Outpatient (REF) | payer SELFPAY ==
[2021-07-16 10:49] LABS: Absolute Lymphocyte Count 1.54 X10^3/uL (0.83-4.51); Absolute Neutrophil Count 4.2 X10^3/uL (2.0-7.7); Basophil# 0.04 X10^3/uL; Basophil% 0.6 % (0-1); Eosinophil# 0.17 X10^3/uL; Eosinophils% 2.5 % (0-5); Hematocrit 29.1 % (37-47); Hemoglobin 9.1 g/dL (12.0-15.0); Lymphocyte # 1.54 X10^3/ul (0.83-4.51); Lymphocyte % 23.1 % (19-41); Mean Corp Hgb Conc 31.3 g/dL (32-36); Mean Corpuscular Hgb 29.8 pg (27.0-32.0); Mean Corpuscular Volume 95.4 fL (81-99); Mean Platelet Vol. 9.7 fl (6.2-12.0); Monocyte# 0.69 X10^3/uL; Monocyte% 10.3 % (0-10); NRBC Flagged by Analyzer 0 % (0-5); Neutrophil # 4.23 X10^3/uL (2.7-7.7); Neutrophil % 63.4 % (47-70); Platelet Count 228 K/mm3 (150-450); RBC Distribution Width CV 17.3 % (11.6-14.6); RBC Distribution Width SD 60.8 fl (35.1-43.9); Red Blood Count 3.05 M/mm3 (4.2-5.4); White Blood Count 6.7 K/mm3 (4.4-11.0)
[2021-07-16 10:54] LABS: International Normalized Ratio 1.8; Prothrombin Time (Protime)PT. 20.7 SECONDS (11.7-14.9)
[2021-07-16 11:29] LABS: Anion Gap 5 (5-15); BUN 15 mg/dL (7-18); Chloride 109 mmol/L (98-107); EST Glomerular Filtration Rate 101 mL/min (>60); Est Glom Filt Rate - Afr Amer 122 mL/min (>60); Glucose 66 mg/dL (74-106); Sodium Level 141 mmol/L (136-145)
== END | disposition home or self-care (01) ==
LOC: OLS.SW300 04:00
PROVIDERS: PCP Internal Medicine; Referring Provider Internal Medicine; Visit Provider Internal Medicine
DX: E03.9 Hypothyroidism, unspecified (principal); I48.91 Unspecified atrial fibrillation; Z79.899 Other long term (current) drug therapy
CPT/HCPCS: 36415; 80048; 84443; 85025; 85610

== ENCOUNTER → 2021-07-23 | Outpatient (REF) | payer SELFPAY ==
[2021-07-23 08:25] LABS: Absolute Lymphocyte Count 1.68 X10^3/uL (0.83-4.51); Absolute Neutrophil Count 4.3 X10^3/uL (2.0-7.7); Basophil# 0.05 X10^3/uL; Basophil% 0.7 % (0-1); Eosinophil# 0.09 X10^3/uL; Eosinophils% 1.3 % (0-5); Hematocrit 28.2 % (37-47); Lymphocyte # 1.68 X10^3/ul (0.83-4.51); Lymphocyte % 24.1 % (19-41); Mean Corp Hgb Conc 31.9 g/dL (32-36); Mean Platelet Vol. 9.5 fl (6.2-12.0); Monocyte# 0.84 X10^3/uL; Monocyte% 12.1 % (0-10); NRBC Flagged by Analyzer 0 % (0-5); Neutrophil % 61.7 % (47-70); Platelet Count 178 K/mm3 (150-450); RBC Distribution Width CV 16.9 % (11.6-14.6); RBC Distribution Width SD 58.2 fl (35.1-43.9)
[2021-07-23 08:47] LABS: International Normalized Ratio 2.6; Prothrombin Time (Protime)PT. 27.5 SECONDS (11.7-14.9)
[2021-07-23 08:48] LABS: Anion Gap 6 (5-15); BUN 14 mg/dL (7-18); BUN/Creat Ratio 21.6 RATIO (10-20); Calcium,Total 8.9 mg/dL (8.5-10.1); Chloride 109 mmol/L (98-107); Creatinine, Serum 0.65 mg/dL (0.55-1.02); EST Glomerular Filtration Rate 92 mL/min (>60); Est Glom Filt Rate - Afr Amer 112 mL/min (>60); Glucose 79 mg/dL (74-106); Magnesium 2.2 mg/dL (1.6-2.6); Potassium 3.8 mmol/L (3.5-5.1); Sodium Level 143 mmol/L (136-145)
== END | disposition home or self-care (01) ==
LOC: OLS.SW300 04:00
PROVIDERS: PCP Internal Medicine; Referring Provider Internal Medicine; Visit Provider Internal Medicine
DX: I10 Essential (primary) hypertension (principal); I48.91 Unspecified atrial fibrillation; E03.9 Hypothyroidism, unspecified; Z79.01 Long term (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 anticoagulants
CPT/HCPCS: 36415; 80048; 83735; 85025; 85610

== ENCOUNTER 2021-08-23 11:51 | Day surgery (SDC) | payer MEDICARE, BC, SELFPAY ==
--- NOTE | 2021-08-20 12:59 | PCM.HP.BLA ---
History and Physical Date of Admission: 08/23/21 HPI: The patient is a 86 year old female presenting for pre-operative visit. She is scheduled for Hysteroscopy D&C, polyp-ectomy for PMB, thickened endometrium, endometrial polyp on 08/23/21. Procedure discussed along with risks, benefits and complications. Other alternatives discussed for management. Consent form signed? Yes. ? ? PAST MEDICAL HISTORY PAST MEDICAL HISTORY Diagnosis Date ? Abdominal pain, left lower quadrant ? ? long standing ? Arrhythmia ? ? Arthritis ? ? Asthma ? ? Atrial fibrillation (HCC) 2009 ? Atrophic vaginitis ? ? Benign neoplasm of colon ? ? C. difficile colitis 2012 ? Coronary artery disease ? ? Diverticulitis 2009, 2012 ? Diverticulosis of colon (without mention of hemorrhage) ? ? Diverticulitis last 06/23 ? Elevated blood pressure reading without diagnosis of hypertension ? ? Eye infection ? ? Family history of malignant neoplasm of breast ? ? sister (PATIENT HERSELF ON EVISTA FOR SEVERAL YRS) ? 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 Tachycardia -05/2009 ? History of recurrent UTIs ? ? HX OF BREAST CANCER 06/2007 ? breast cancer left ? Hypertension ? ? Irritable bowel syndrome ? ? Lumbago ? ? Malignant neoplasm of lower-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, estrogen receptor positive (HCC) 06/03/2017 ? Mitral valve disorders(424.0) ? ? and irregular heartbeat on occasion stress related ? Mixed stress and urge urinary incontinence ? ? Osteoarthrosis, unspecified whether generalized or localized, other specified sites ? ? 07/22 vit D 41 ? Other diseases of pharynx, not elsewhere classified(478.29) ? ? Other extrapyramidal disease and abnormal movement disorder ? ? PMH - PAST MEDICAL HISTORY OF ? ? benign mass on liver ? PMR (polymyalgia rheumatica) (HCC) 2012 ? Pure hypercholesterolemia ? ? Snoring ? ? 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 scalp ? Symptomatic menopausal or female climacteric states ? ? IN HER 50S 05/22 NORMAL BONE DENSITY ? Syncope ? ? Thyroid disease ? ? 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 Unspecified hemorrhoids without mention of complication ? ? Hemorrhoids ? Unspecified sleep apnea ? ? use CPAP SEVERAL YRS ? UTI (lower urinary tract infection) 2012 ? frequent ? ? PAST SURGICAL HISTORY PAST SURGICAL HISTORY Procedure Laterality Date ? ABDOMINAL SURGERY HX ? ? ? APPENDECTOMY ? 1983 ? ovarian cyst at same time-one ovary removed right ? APPENDECTOMY ? ? ? BIOPSY BREAST OPEN INCISIONAL ? 1979's ? left breast twice ? BREAST LEFT FINE NEEDLE ASPIRATION ? 1979's ? left breast ? BREAST SURGERY HX ? ? ? BX BREAST NEEDLE CORE W/O IMAGING GUIDANCE SPX ? 06/24/2007 ? left breast ? BX BREAST W/DEVICE 1ST LESION STEREOTACTIC GUID Right 07/19/2015 ? ductal carcinoma, DCIS, LCIS ? BX/EXC LYMPH NODE OPEN DEEP AXILLARY NODE Right ? ? COLECTOMY PART W/CECOSTOMY ? 08/08/2009 ? sigmoid colectomy ? COLON SURGERY HX ? ? ? COLONOSCOPY FLX DX W/COLLJ SPEC WHEN PFRMD ? 04/19/2003 ? Colonoscopy ? COLONOSCOPY FLX DX W/COLLJ SPEC WHEN PFRMD ? 11/03/2014 ? Colonoscopy ? COLONOSCOPY FLX DX W/COLLJ SPEC WHEN PFRMD ? 11/15/2019 ? Colonoscopy ? COLONOSCOPY FLX DX W/COLLJ SPEC WHEN PFRMD ? 01/09/2021 ? repeat in 6 months ? COLONOSCOPY W/BIOPSY SINGLE/MULTIPLE ? 03/23/2010 ? Clean anastamosis at 15cm few right and lef sided diverticula ? COLSC FLX W/REMOVAL LESION BY HOT BX FORCEPS ? 04/27/2007 ? tubular adenoma ? COLSC FLX W/REMOVAL LESION BY HOT BX FORCEPS ? 09/28/2008 ? small polyp in cecum and 40cm, diverticulosis ? ESOPHAGOGASTRODUODENOSCOPY TRANSORAL DIAGNOSTIC ? 01/09/2021 ? INCISE FINGER TENDON SHEATH Right 06/28/2020 ? Right ring and little trigger finger releases ? INCISE FINGER TENDON SHEATH Left 09/28/2020 ? Left ring trigger finger release ? INSJ TUNNELED CTR VAD W/SUBQ PORT AGE 5 YR/> ? 10/06/2007 ? Right Subclavian ? MASTECTOMY, SIMPLE, COMPLETE ? 08/04/2007 ? left breast with SLND/ALND ? MASTECTOMY, SIMPLE, COMPLETE Right 08/29/2015 ? right mastectomy with SLND ? PAST SURGICAL HISTORY OF ? ? ? bilat CTR, had endometrial bx 2004 ? PAST SURGICAL HISTORY OF ? 12/2011 ? removal of lesion of Lt eyelid ? PAST SURGICAL HISTORY OF ? 1982 ? Rt ovary removed ? PAST SURGICAL HISTORY OF ? 01/03/2017 ? breast surgery ? REMOVE TONSILS/ADENOIDS,<12 Y/O ? ? ? SALPINGO-OOPHORECTOMY COMPL/PRTL UNI/BI SPX ? 08/08/2009 ? left Salpingo-oophorectomy ? SHAVING SKIN LESION 1 S/N/H/F/G DIAM 0.6-1.0 CM ? 09/2017 ? squamous cell ? SKIN BIOPSY HX ? ? ? TONSILLECTOMY HX ? ? ? TONSILLECTOMY PRIMARY/SECONDARY <AGE 12 ? 1945 ? Tonsillectomy ? ? ? CURRENT MEDICATIONS Current Outpatient Medications Medication Sig Dispense Refill ? phenazopyridine (PYRIDIUM, GERIDIUM) 200 mg tablet Take 1 tablet by mouth three times daily as needed for up to 5 days. 15 tablet 0 ? metoprolol succinate ER (TOPROL XL) 25 mg 24 hr tablet Take 1 tablet by mouth once daily. 90 tablet 3 ? mydobaf-mxqbyhhdc-ojbhyow D3 500 mg-5 mcg (200 unit) per tablet Take 1 tablet by mouth once daily. 90 tablet 3 ? furosemide (LASIX) 20 mg tablet Take 1 tablet by mouth every other day in the morning. 45 tablet 3 ? predniSONE (DELTASONE) 5 mg tablet Take 1 tablet by mouth once daily. (Patient taking differently: Take 5 mg by mouth once daily as needed (RA exacerbation). ) 30 tablet 5 ? omeprazole (PRILOSEC) 40 mg capsule Take 1 capsule by mouth once daily. 90 capsule 0 ? fluticasone (FLONASE) 50 mcg/actuation nasal spray Use 2 Sprays in each nostril once daily. ? ? ? MEDICAL SUPPLY Zippered compression stockings.- 1 pair. 2 Each 1 ? levothyroxine (LEVOXYL) 25 mcg tablet Take 1 tablet by mouth once daily. Take on empty stomach. For Thyroid 90 tablet 3 ? escitalopram oxalate (LEXAPRO) 10 mg tablet Take 1 tablet by mouth once daily. 90 tablet 3 ? gabapentin (NEURONTIN) 600 mg tablet Take 0.5 tablets by mouth once daily. (Patient taking differently: Take 300 mg by mouth daily at bedtime. ) 45 tablet 3 ? warfarin (COUMADIN) 1 mg tablet 2 mg every Tue; 1 mg all other days 90 tablet 1 ? diclofenac sodium (VOLTAREN) 1 % topical gel Apply 4 g to affected area as needed. 1 Tube 5 ? triamcinolone acetonide (NASACORT AQ) 55 mcg nasal inhaler Use 2 Sprays in the nose once daily. (Patient taking differently: Use 2 Sprays in the nose once daily as needed. ) 1 Bottle 2 ? docusate sodium (COLACE) 100 mg capsule Take 1 capsule by mouth twice daily as needed for Constipation. 60 capsule 1 ? cetirizine (ZYRTEC) 10 mg tablet Take 1 tablet by mouth once daily. 90 tablet 3 ? MULTIVITAMIN TAB Take 1 tablet by mouth once daily. ? ? 0 ? miSOPROStol (CYTOTEC) 200 mcg tablet Use 2 tablets vaginally as directed for [address] 2 tablets vaginally qhs before the procedure 2 tablet 0 ? nitrofurantoin monohydrate and macrocrystal (MACROBID) 100 mg capsule Take 1 capsule by mouth twice daily for 10 days. 20 capsule 0 ? No current facility-administered medications for this visit. ? ? ALLERGIES: Clindamycin, Keflex [Cephalexin], Naprosyn [Naproxen], Art Inhibitors, Adhesives [Other], Arthrotec 50 [Diclofenac-Misoprostol], Blephamide [Sulfacetamide-Prednisolone], Ditropan [Oxybutynin], Flagyl [Metronidazole Hcl], Flexeril [Cyclobenzaprine], Hctz [Hydrochlorothiazide], Naproxen Sodium, Paxil [Paroxetine], Sulfa (Sulfonamide Antibiotics), and Zestril [Lisinopril] ? PERSONAL HISTORY: SOCIAL HISTORY Social History ? Tobacco Use ? Smoking status: Never Smoker ? Smokeless tobacco: Never Used Vaping Use ? Vaping Use: Never used Substance Use Topics ? Alcohol use: No ? Drug use: No ? FAMILY HISTORY: FAMILY HISTORY FAMILY HISTORY Problem Relation Age of Onset ? other ( age 59 [place]) Mother ? ? hypertension and TB ? other (pancreatic cancer) Father ? ? Breast Cancer Sister ? ? diagnosed at age 53 ? Breast Cancer Maternal Aunt ? ? diagnosed postmenopausal ? Breast Cancer Other ? ? 2 maternal first cousins ? Breast Cancer Other ? ? maternal cousins ? Breast Cancer Other ? ? maternal great grandmother ? other (sinus cavity CA) Son ? ? other (myeloma) Brother ? ? other (healthy) Sister ? ? other (ovarian cancer) Sister ? ? paternal grandmother ? ? REVIEW OF SYMPTOMS: No CP or palpitations. No VTE ? PHYSICAL EXAMINATION: ? VITALS: Blood pressure 118/58, weight 173 lb (78.5 kg). ? GENERAL: The patient is well nourished, well hydrated in no acute distress. , The patient is oriented to time, place, and person. NECK: Supple. No lynphadenopathy, normal thyroid, no thyromegaly. LUNGS: Clear to auscultation bilaterally. no wheezes, rhonchi or rales HEART: Regular rate and rhythm, Normal heart sounds and No murmurs or gallops ? IMPRESSION: PLAN: PMB, thickened endometrium, endometrial polyp The risks/benefits/alternatives and personal involved for the planned hysteroscopy D&C w/ polyp resection were reviewed with the patient. Her questions were answered to her satisfaction and she desires to proceed. Consent was signed. I reviewed with her postop instructions and expectations. ? ? I have reviewed and updated past medical and surgical history, medications and allergies Assessment & Plan Assessment/Plan (1) PMB (postmenopausal bleeding): (2) Endometrial thickening on ultrasound:
--- NOTE | 2021-08-23 | EMB_PTH ---
PATIENT: CHRISTIAN CARDENAS LOC: [facility] – [place] U#:[id number] AGE/SX: 86/F ROOM: RE08/23/[address]: Dr. Jayde Cordova MD : [id number] BED: DIS: 08/23/2021 SPEC #: [id number] RECD: 08/24/21 07:19 STATUS: CELESTINO SERRANO #: [id number] ROXANN: 08/23/21 00:[address]: Jayde Cordova DEPT: SURGICAL PATHOLOGY RECD BY: Conor Reid ENTERED: 08/24/21 08:13 SP TYPE: ENDOM BX/C LAURA DR: Dr. Galina Sainz MD Tissues: Endometrium, NOS Procedures: Surgery Specimen Level IV HEADER OPERATION: Hysteroscopy, D & C Symphion PRE-OP DIAGNOSIS: Postmenopausal bleeding, endometrial thickening TISSUE SUBMITTED: Endometrial curettings MICROSCOPIC DIAGNOSIS Endometrium, curettings: Inactive endometrium with focal cystic change. Benign fragments of endocervix with mild chronic inflammation. AM:lou 08/27/2021 MICROSCOPIC DESCRIPTION Slides are reviewed. GROSS DESCRIPTION Received in fixative is one container labeled with the patient's name and designated endometrial biopsy. The specimen consists of multiple fragments of torre hemorrhagic soft tissue that in aggregate measure 2 x 1 x 0.1 cm. The specimen is totally submitted in one cassette. / SJ:lou 08/24/2021 TC:5 CPT: 28365
[2021-08-23 12:24] VITALS: BP 122/53; PULSE 69; RESP 16; TEMP 36.8; O2SAT 99; BMI 27.8
[2021-08-23] MEDS: Acetaminophen 325 MG Tablet 650 MG PO (13:16)
[2021-08-23] MEDS: Ketorolac 15 MG/ML Vial IV (13:16)
[2021-08-23 13:20] LABS: Hematocrit 26.4 % (37-47); Hemoglobin 8.2 g/dL (12.0-15.0); Mean Corp Hgb Conc 31.1 g/dL (32-36); Mean Corpuscular Hgb 27.9 pg (27.0-32.0); Mean Corpuscular Volume 89.8 fL (81-99); Mean Platelet Vol. 9.3 fl (6.2-12.0); Platelet Count 160 K/mm3 (150-450); RBC Distribution Width SD 56.3 fl (35.1-43.9); Red Blood Count 2.94 M/mm3 (4.2-5.4); White Blood Count 6.6 K/mm3 (4.4-11.0)
--- NOTE | 2021-08-23 13:20 | PCM.DC ---
Discharge Instructions Diet Discharge Diet: No restrictions Activity May resume sexual activity in: 2 weeks Lifting Restrictions: none Dressing / Incision Call your doctor if your incision/area has: Sudden Increased Bleeding and Foul Smelling Discharge Call your doctor if you observe: Fever of 101 or Higher and Using more than 1 pad per hour (for 2 hrs in a row) Follow Up Care Please Follow Up With: Jayde Cordova MD When: 2-4 weeks or as needed. Call [phone] to make an appointment or with any concerns. Test Results: Test results from this visit will be discussed in further detail at your follow-up appointment, if applicable. Discharge Plan Admission Primary Reason for Your Visit: hysteroscopy D&C Attending Provider: Jayde Cordova Primary Care Provider: Galina Sainz Discharge Orders/Prescriptions Prescriptions: No Action gabapentin 600 MG tablet 300 mg PO QHS RF: 0 warfarin [Jantoven] 3 MG tablet 1 mg PO SUMOWETHSA RF: 0 docusate sodium [DOK] 100 MG capsule 100 mg PO DAILY PRN (Reason: Constipation) RF: 0 warfarin [Jantoven] 1 MG tablet 2 mg PO TU RF: 0 estradiol [Estrace] 42.5 GM cream 1 g vaginal QODAY PRN (Reason: DRYNESS) RF: 0 multivitamin with folic acid [Thera] 1 TABLET tablet 1 tab PO DAILY RF: 0 L.acidoph, paracasei,B. lactis 1 EACH capsule 1 ea PO DAILY RF: 0 triamcinolone acetonide [Nasal Allergy] 1 SPRAY aerosol,spray 2 spray NASAL PRN PRN (Reason: Nasal Congestion) RF: 0 biotin 5 MG tablet 5,000 mg PO 1200 RF: 0 diclofenac sodium [Voltaren] 100 GM gel 100 g TP PRN PRN (Reason: Pain) RF: 0 turmeric root extract 500 MG capsule 580 mg PO DAILY RF: 0 melatonin 10 MG tablet 5 mg PO QHS RF: 0 prednisone 5 mg Tablet 5 mg PO PRN PRN (Reason: ARTHRITIS) RF: 0 ascorbic acid (vitamin C) [Vitamin C] 500 mg Tablet 500 mg PO DAILY RF: 0 nitrofurantoin macrocrystal [Macrodantin] 100 mg Capsule 100 mg PO BID RF: 0 furosemide [Lasix] 20 mg Tablet 20 mg PO QODAY RF: 0 metoprolol succinate 25 mg Tablet Extended Release 24 Hr 25 mg PO DAILY RF: 0 fluticasone propionate [Flonase Allergy Relief] 50 mcg/actuation [place],Suspension 1 spray INTRANASAL DAILY RF: 0 Citracal Plus 746-47-0-125 sw-eh-il-unit Tablet 1 tab PO BID RF: 0 escitalopram oxalate [Lexapro] 10 mg Tablet 10 mg PO DAILY RF: 0 zinc 50 mg Capsule 50 mg PO DAILY RF: 0 cholecalciferol (vitamin D3) [Vitamin D3] 25 mcg (1,000 unit) Tablet,Chewable 25 mcg PO DAILY RF: 0 levothyroxine 25 mcg Capsule 25 mcg PO DAILY RF: 0 omeprazole magnesium 20 mg Capsule,Delayed Release(Dr/Ec) 40 mg PO DAILY RF: 0 cranberry 450 mg Tablet 450 mg PO DAILY RF: 0 calcium carb and citrat-mag ox 200 mg calcium- 50 mg Tablet 1 tab PO DAILY RF: 0 Glucosamine Chondroitin 550-30-1 mg Capsule 1 cap PO QHS RF: 0 acetaminophen [Tylenol] 325 mg Tablet 650 mg PO Q6H PRN (Reason: Pain) RF: 0 Referrals / Follow Up: Galina Sainz MD [Primary Care Provider] - Disposition Disposition (needs filled in before D/C Order can be placed): Home, Self Care
[2021-08-23 13:26] LABS: International Normalized Ratio 2.8; Prothrombin Time (Protime)PT. 28.8 SECONDS (11.7-14.9)
[2021-08-23 13:27] LABS: Partial Thromboplast Time 46.5 Seconds (24.1-36.2)
[2021-08-23] MEDS: Lidocaine 1% /Epi 1:100 (20ml) 20 ML Vial (13:34)
--- NOTE | 2021-08-23 13:44 | PCM.OPRPT ---
Problems Associated Problem List Diagnoses (1) Endometrial thickening on ultrasound: (2) PMB (postmenopausal bleeding): (3) History of diverticulitis of colon: Report of Operation Date of Procedure: 08/23/21 Pre-Operative Diagnosis: PMB, endometrial polyp on ultrasound Post-Operative Diagnosis: same Surgery/Procedure Performed:: hysteroscopy D&C Description of Surgical Findings:: thin atrophic endometrium, flush cervix, normal vagina Surgeon: Jayde Cordova medication reconciliation technician: None Type of Anesthesia: MAC/Supplemental/Local Anesthesiologist: Bayron Villanueva Special Medications: none Specimen's removed: endometrial curettings Drains: none Estimated Blood Loss (mL): 10 Fluids Replaced: 900 Description of Procedure: The patient was taken to the OR where she was prepped and draped in dorsal lithotomy position. The weighted speculum was placed in the vagina and the anterior lip of the cervix was grasped with a single-tooth tenaculum. A paracervical block was administered with 1% lidocaine with 1-100,000 epinephrine solution. The cervix was dilated serially with Hegar dilators. The 6.3m Symphion hysteroscope was placed into the uterine cavity and the above findings were noted. Bilateral tubal ostia were identified. The symphion resector was inserted and a visual curettage of the cavity was performed. The instruments were removed from the vagina. The specimen was handed off and sent to pathology. All sponge and needle counts were correct. Vaginal sweep was performed by me. The patient was awakened and taken to the recovery room in stable condition. calculated fluid deficit was 250 cc of normal saline Grafts/Implants Used: none Procedure Start Time: 13:29 Procedure Stop Time: 13:44 Complications none Admit VTE Documentation VTE Present on Admission: No VTE Mechan Device Prophylaxis: SCD's VTE Pharm Prophylaxis ordered?: No Reason prophylaxis not ordered:: Procedure Not Indicated
[2021-08-23 13:50] VITALS: BP 105/53; BP 122/53; PULSE 74; RESP 18; TEMP 37.5; O2SAT 96
[2021-08-23 13:55] VITALS: BP 103/54; BP 122/53; PULSE 69; RESP 16; O2SAT 97
[2021-08-23 14:00] VITALS: BP 106/53; BP 122/53; PULSE 67; RESP 16; O2SAT 96
[2021-08-23 14:05] VITALS: BP 103/54; BP 122/53; PULSE 68; RESP 16; TEMP 37.1; O2SAT 97
[2021-08-23 15:21] VITALS: BP 105/41; BP 122/53; PULSE 72; RESP 16; TEMP 36.6; O2SAT 96
== END 2021-08-23 15:23 | disposition home or self-care (01) ==
LOC: SDC 11:53 → AC 11:55
PROVIDERS: PCP Internal Medicine; Referring Provider Obstetrics & Gynecology; Visit Provider Obstetrics & Gynecology
PROC: 0UB98ZZ Excision of Uterus, Via Natural or Artificial Opening Endoscopic (ICD-10-PCS; CPT 58558; principal; 2021-08-23 13:10)
DX: N84.0 Polyp of corpus uteri (principal); N72 Inflammatory disease of cervix uteri; N95.0 Postmenopausal bleeding; R93.89 Abnormal findings on diagnostic imaging of other specified body structures; I10 Essential (primary) hypertension; I25.10 Atherosclerotic heart disease of native coronary artery without angina pectoris; K58.9 Irritable bowel syndrome, unspecified; E78.00 Pure hypercholesterolemia, unspecified; E07.9 Disorder of thyroid, unspecified; Z79.01 Long term (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 anticoagulants; Z79.899 Other long term (current) drug therapy; Z80.0 Family history of malignant neoplasm of digestive organs; Z80.41 Family history of malignant neoplasm of ovary; Z80.3 Family history of malignant neoplasm of breast
CPT/HCPCS: 58558; 00952; 85027; 85610; 85730; 88305; J7120; A4216; J2405

== ENCOUNTER 2021-08-26 12:11 | Emergency (ER) | payer MEDICARE, BC, SELFPAY ==
[2021-08-26 12:13] VITALS: BP 110/47; PULSE 94; RESP 17; TEMP 36.7; O2SAT 97; BMI 27.6
--- NOTE | 2021-08-26 12:19 | ED.VIS.FEGU ---
HPI <OLIVE Jones - Last Filed: 08/26/21 14:21> HPI - Female History of Present Illness Chief Complaint: Vag Bleeding Narrative Narrative: 86-year-old female with history of atrial fibrillation on Coumadin, recently had a D&C secondary to some vaginal bleeding. Patient saw Dr. Cordova and had a D&C on August 23, 2021. Patient's hemoglobin was 8.2 at that time. She states that for the last 4 8 hours has been going through 4 pads a day, she states she has multiple clots. She denies any chest pain, shortness of breath. She is here for evaluation [facility] <OLIVE Jones - Last Filed: 08/26/21 14:21> [facility] Medical History (Updated 08/26/21 @ 14:19 by OLIVE Jones) Anemia Back pain BiPAP (biphasic positive airway pressure) dependence Bladder disease Breast CA Cancer Cardiology follow-up encounter Cirrhosis Depression Gastric reflux History of atrial fibrillation History of diverticulitis History of echocardiogram History of edema History of esophageal varices with bleeding History of IBS History of pain when walking History of rheumatic fever History of steroid therapy History of stress test Hx of squamous cell carcinoma Injury of head and neck Leg cramps Loss of hearing Migraine headache Non-smoker Open wound Restless legs Rheumatoid arthritis Syncope Thyroid disease Wears glasses Home Medications oscar Roblero B. lactis 1 ea PO DAILY 08/30/14 [History Last Taken Unknown] docusate sodium [Colace] 100 mg PO DAILY PRN 08/30/14 [History Last Taken Unknown] estradiol [Estrace Vaginal Cream] 1 g VAGINAL QODAY PRN 08/30/14 [History Last Taken Unknown] gabapentin 300 mg PO QHS 08/30/14 [History Last Taken Unknown] multivitamin with folic acid [Thera] 1 tab PO DAILY 08/30/14 [History Last Taken Unknown] warfarin [Coumadin (PBKC)] 1 mg PO SUMOWETHSA 08/30/14 [History Last Taken 08/22/21 23:00] warfarin [Coumadin] 2 mg PO TU 08/30/14 [History Last Taken Unknown] biotin 5,000 mg PO 1200 03/26/18 [History Last Taken Unknown] diclofenac sodium [Voltaren] 100 g TP PRN PRN 03/26/18 [History Last Taken Unknown] melatonin 5 mg PO QHS 03/26/18 [History Last Taken Unknown] triamcinolone acetonide [Nasacort Aq Nasal [place]] 2 spray NASAL PRN PRN 03/26/18 [History Last Taken Unknown] turmeric root extract 580 mg PO DAILY 03/26/18 [History Last Taken Unknown] acetaminophen [Tylenol] 650 mg PO Q6H PRN 08/20/21 [History Last Taken Unknown] ascorbic acid (vitamin C) [Vitamin C] 500 mg PO DAILY 08/20/21 [History Last Taken Unknown] calcium carb and citrat-mag ox 1 tab PO DAILY 08/20/21 [History Last Taken Unknown] [id number] [Citracal Plus] 1 tab PO BID 08/20/21 [History Last Taken Unknown] cholecalciferol (vitamin D3) [Vitamin D3] 25 mcg PO DAILY 08/20/21 [History Last Taken Unknown] cranberry 450 mg PO DAILY 08/20/21 [History Last Taken Unknown] escitalopram oxalate [Lexapro] 10 mg PO DAILY 08/20/21 [History Last Taken Unknown] fluticasone propionate [Flonase Allergy Relief] 1 spray INTRANASAL DAILY 08/20/21 [History Last Taken Unknown] furosemide [Lasix] 20 mg PO QODAY 08/20/21 [History Last Taken Unknown] glucos sul [id number] [Glucosamine Chondroitin] 1 cap PO QHS 08/20/21 [History Last Taken Unknown] levothyroxine 25 mcg PO DAILY 08/20/21 [History Last Taken 08/23/21 07:15] metoprolol succinate 25 mg PO DAILY 08/20/21 [History Last Taken 08/23/21 07:15] nitrofurantoin macrocrystal [Macrodantin] 100 mg PO BID 08/20/21 [History Last Taken Unknown] omeprazole magnesium 40 mg PO DAILY 08/20/21 [History Last Taken 08/23/21 07:15] prednisone 5 mg PO PRN PRN 08/20/21 [History Last Taken Unknown] zinc 50 mg PO DAILY 08/20/21 [History Last Taken Unknown] norethindrone acetate [Aygestin] 5 mg PO BID #10 tab 08/26/21 [Rx Last Taken Unknown] Allergy/AdvReac Type Severity Reaction Status Date / Time DESMOND Inhibitors Allergy Unknown Verified 08/26/21 12:13 adhesive Allergy Unknown Verified 08/26/21 12:13 cyclobenzaprine HCl Allergy Unknown Verified 08/26/21 12:13 [From Flexeril] diclofenac sodium Allergy Unknown Verified 08/26/21 12:13 [From Arthrotec] hydrochlorothiazide Allergy Unknown Verified 08/26/21 12:13 lisinopril [From Zestril] Allergy Unknown Verified 08/26/21 12:13 metronidazole [From Flagyl] Allergy Unknown Verified 08/26/21 12:13 misoprostol [From Arthrotec] Allergy Unknown Verified 08/26/21 12:13 naproxen Allergy Unknown Verified 08/26/21 12:13 paroxetine HCl [From Paxil] Allergy Unknown Verified 08/26/21 12:13 prednisolone acetate Allergy Unknown Verified 08/26/21 12:13 [From Blephamide] sulfacetamide sodium Allergy Unknown Verified 08/26/21 12:13 [From Blephamide] Surgical History (Updated 08/20/21 @ 09:03 by Paula James) H/O mastectomy History of esophagogastroduodenoscopy (EGD) Hx of colonoscopy Hx of mastectomy Hx of oophorectomy Hx of resection of small bowel Hx of tonsillectomy Social History Smoking Status: Never smoker ROS <OLIVE Jones - Last Filed: 08/26/21 14:21> ROS ED ROS Narrative Constitutional: Negative for fever, chills, weight loss, weakness Eyes: Negative for vision loss, vision change, double vision ENT: Negative for any sore throat, ear pain, congestion Cardiovascular: Negative for any chest pain, tightness, palpitations Respiratory: Negative for any cough, sputum production, hemoptysis, dyspnea, dyspnea on exertion, orthopnea Gastrointestinal: Negative for any abdominal pain, nausea, vomiting, diarrhea, constipation, blood in stool, blood in vomit : Negative for any urinary frequency, dysuria, retention, blood in urine/. Positive for vaginal bleeding Muscle skeletal: Negative for any muscle joint pain, stiffness, myalgias, arthralgias, neck pain, back pain Neurological: Negative for any headache, syncope, numbness or tingling, dizziness Skin: Negative for any rashes, lumps, itching, abrasions, lacerations Psychiatric: Negative for any depression, anxiety, stress, suicidal ideation, homicidal ideation Hematologic: Negative for any easy bruising, excessive bruising, easy bleeding Allergies: Negative for any eczema, hives, rash EXAM <Sal NuñezOLIVE gauthier - Last Filed: 08/26/21 14:21> Physical Exam Narrative Exam Narrative: Vital signs reviewed. HEET: Head normocephalic atraumatic, TMs clear bilaterally. Posterior pharynx is clear, moist mucous membranes. Nares clear bilaterally. Neck: Supple with no lymphadenopathy or tenderness. No signs of meningismus, negative jolt sign. Cardiac: Regular rate and rhythm no murmurs gallops or rubs, equal peripheral pulses bilaterally. Respiratory: Lungs clear to auscultation bilaterally. No chest tenderness. Abdomen: Soft, nontender, nondistended. No abdominal bruit or pulsatile masses. No hepatosplenomegaly Extremities: No peripheral edema, no signs of gross trauma or deformity. Active full range of motion of all extremities. Neuro: Cranial nerves II through XII intact, no focal neurological deficits. Skin: Clean dry and intact with no rash, purpura, petechiae, vesicles or pustules. Backs/flank: No CVA tenderness, no midline spinal tenderness, no deformity. Psych: Normal mood and affect. No SI, HI or acute psychosis. Pelvic: Pelvic exam was completed with the female nurse general assignment reporter, there was blood externally, there was multiple clots in the vaginal vault. It was difficult to see landmarks secondary to the clots. There is no chen of blood. Const Vital Signs: 08/26/21 12:13 08/26/21 13:01 Temperature 98.1 F Temperature Source Temporal Pulse Rate 94 Pulse Rate [Lying] 71 Pulse Rate [Sitting (for 1 minute prior to obtaining)] 70 Pulse Rate [Standing (for 1 minute prior to obtaining)] 73 Respiratory Rate 17 Blood Pressure 110/47 L Blood Pressure [Lying] 105/52 L Blood Pressure [Sitting (for 1 minute prior to obtaining)] 109/55 L Blood Pressure [Standing (for 1 minute prior to obtaining)] 111/49 L Blood Pressure Mean 68 Blood Pressure Mean [Lying] 69 Blood Pressure Mean [Sitting (for 1 minute prior to obtaining)] 73 Blood Pressure Mean [Standing (for 1 minute prior to obtaining)] 69 Pulse Ox 97 Oxygen Delivery Method Room Air <Dr. Karyn Chanel DO - Last Filed: 08/26/21 14:24> Physical Exam Const Vital Signs: 08/26/21 12:13 08/26/21 13:01 Temperature 98.1 F Temperature Source Temporal Pulse Rate 94 Pulse Rate [Lying] 71 Pulse Rate [Sitting (for 1 minute prior to obtaining)] 70 Pulse Rate [Standing (for 1 minute prior to obtaining)] 73 Respiratory Rate 17 Blood Pressure 110/47 L Blood Pressure [Lying] 105/52 L Blood Pressure [Sitting (for 1 minute prior to obtaining)] 109/55 L Blood Pressure [Standing (for 1 minute prior to obtaining)] 111/49 L Blood Pressure Mean 68 Blood Pressure Mean [Lying] 69 Blood Pressure Mean [Sitting (for 1 minute prior to obtaining)] 73 Blood Pressure Mean [Standing (for 1 minute prior to obtaining)] 69 Pulse Ox 97 Oxygen Delivery Method Room Air MDM <OLIVE Jones - Last Filed: 08/26/21 14:21> [facility] Narrative Medical decision making narrative: Patient appears well, patient appears nontoxic, vital signs are stable. Patient presents to the emergency department with complaints of vaginal bleeding post D&C 3 days ago. Patient's physical examination was grossly unremarkable, patient did have a pelvic exam which did show bleeding however no acute hemorrhage. Patient laboratory study shows a hemoglobin 8.0, this is baseline for the patient, prior to surgery was 8.2. Patient's Coumadin level shows an INR of 2.9, chemistries were unremarkable. I did speak with the patient's surgeon Dr. Cordova, we have come up with a plan to stop her Coumadin for 48 hours, patient be placed on Aygestin 5 mg twice a day. Patient was given return precautions, she will return for worsening bleeding, fever, chills, dizziness, chest pain. Patient to follow-up closely with Dr. Cordova. Patient stable for discharge Lab Data Attestation: I reviewed the patient's lab results. Labs: Laboratory Results - last 24 hr 08/26/21 08/26/21 08/26/21 12:40 12:40 12:40 WBC 5.3 RBC 2.86 L Hgb 8.0 L Hct 25.8 L MCV 90.2 MCH 28.0 MCHC 31.0 L RDW Std Deviation 56.8 H RDW Coeff of Laureen 17.1 H Plt Count 155 MPV 9.3 Immature Gran % (Auto) 0.400 Neut % (Auto) 61.2 Lymph % (Auto) 21.5 [place] % (Auto) 14.6 H Eos % (Auto) 1.9 Baso % (Auto) 0.4 Absolute Neuts (auto) 3.3 Absolute Lymphs (auto) 1.15 Nucleated RBC % 0 PT 29.6 H INR 2.9 Sodium 140 Potassium 4.1 Chloride 109 H Carbon Dioxide 28.0 Anion Gap 3 L BUN 12 Creatinine 0.77 Estim Creat Clear Calc 38.50 Est GFR (MDRD) Af Amer 92 Est GFR (MDRD) Non-Af 76 BUN/Creatinine Ratio 15.6 Glucose 111 H Calcium 8.7 Blood Type Antibody Screen 08/26/21 12:40 WBC RBC Hgb Hct MCV MCH MCHC RDW Std Deviation RDW Coeff of Laureen Plt Count MPV Immature Gran % (Auto) Neut % (Auto) Lymph % (Auto) [place] % (Auto) Eos % (Auto) Baso % (Auto) Absolute Neuts (auto) Absolute Lymphs (auto) Nucleated RBC % PT INR Sodium Potassium Chloride Carbon Dioxide Anion Gap BUN Creatinine Estim Creat Clear Calc Est GFR (MDRD) Af Amer Est GFR (MDRD) Non-Af BUN/Creatinine Ratio Glucose Calcium Blood Type A POSITIVE Antibody Screen NEGATIVE <Dr. Karyn Chanel, DO - Last Filed: 08/26/21 14:24> [facility] MDM Narrative Medical decision making narrative: I have personally performed a face to face assessment of the patient and have reviewed the CORY Note. I performed a substantive portion of the visit including all aspects of the following. My heredia findings include: History is [vaginal bleeding worse over the last 2 days. Patient has history of uterine polyps and had a D&C on August 23. Over last 2 days she has had increased bleeding and had bleeding through 4 pads yesterday and is bled through several pads today. Patient passed some small clots. She denies feeling lightheaded or dizzy. She does describe some generalized weakness. Patient is on Coumadin for history of A. fib. She denies any abdominal or pelvic pain.] Exam is [HEENT-PERRLA, EOMI. Cranial nerves II through XII grossly intact. TMs clear. Mucous membranes moist. No adenopathy. Cardiovascular-regular rate and rhythm without murmur or ectopy Lungs-clear to auscultation, chest wall stable without crepitus or subcu emphysema Abdomen-normoactive bowel sounds, soft, nontender, no rebound or rigidity, no peritoneal signs. Extremities-intact ?4, normal range of motion, normal pulses, atraumatic] Medical Decison Making [patient seen in conjunction with physician legal administrative assistant. Patient was independently assessed by myself. Her hemoglobin was 8.0 today which is minimally below where she was on the ninth at 8.2. Her orthostatic vital signs were negative. Patient case was discussed with patient's CORPORATE LEARNING CONSULTANT Dr. Jayde Cordova who recommended we start patient on Aygestin and discontinue her Coumadin for the next 2 days. Patient will be advised to return if persistent heavy bleeding, lightheadedness, or condition should worsen anyway.] Other additions or changes: [None] Lab Data Labs: Laboratory Results - last 24 hr 08/26/21 08/26/21 08/26/21 12:40 12:40 12:40 WBC 5.3 RBC 2.86 L Hgb 8.0 L Hct 25.8 L MCV 90.2 MCH 28.0 MCHC 31.0 L RDW Std Deviation 56.8 H RDW Coeff of Laureen 17.1 H Plt Count 155 MPV 9.3 Immature Gran % (Auto) 0.400 Neut % (Auto) 61.2 Lymph % (Auto) 21.5 [place] % (Auto) 14.6 H Eos % (Auto) 1.9 Baso % (Auto) 0.4 Absolute Neuts (auto) 3.3 Absolute Lymphs (auto) 1.15 Nucleated RBC % 0 PT 29.6 H INR 2.9 Sodium 140 Potassium 4.1 Chloride 109 H Carbon Dioxide 28.0 Anion Gap 3 L BUN 12 Creatinine 0.77 Estim Creat Clear Calc 38.50 Est GFR (MDRD) Af Amer 92 Est GFR (MDRD) Non-Af 76 BUN/Creatinine Ratio 15.6 Glucose 111 H Calcium 8.7 Blood Type Antibody Screen 08/26/21 12:40 WBC RBC Hgb Hct MCV MCH MCHC RDW Std Deviation RDW Coeff of Laureen Plt Count MPV Immature Gran % (Auto) Neut % (Auto) Lymph % (Auto) [place] % (Auto) Eos % (Auto) Baso % (Auto) Absolute Neuts (auto) Absolute Lymphs (auto) Nucleated RBC % PT INR Sodium Potassium Chloride Carbon Dioxide Anion Gap BUN Creatinine Estim Creat Clear Calc Est GFR (MDRD) Af Amer Est GFR (MDRD) Non-Af BUN/Creatinine Ratio Glucose Calcium Blood Type A POSITIVE Antibody Screen NEGATIVE Discharge Plan Triage Chief Complaint: Vag Bleeding ED Midlevel Provider: Sal Duke ED Provider: Karyn Chanel Dx/Rx/DC Orders Clinical Impression: Abnormal vaginal bleeding, Postoperative vaginal bleeding following genitourinary procedure Instructions: Understanding Uterine Bleeding, ED Post Op Wound Check, Bleeding Prescriptions: New norethindrone acetate [Aygestin] 5 mg tablet 5 mg PO BID Qty: 10 RF: 0 No Action gabapentin 600 MG tablet 300 mg PO QHS RF: 0 warfarin [Jantoven] 3 MG tablet 1 mg PO SUMOWETHSA RF: 0 docusate sodium [DOK] 100 MG capsule 100 mg PO DAILY PRN (Reason: Constipation) RF: 0 warfarin [Jantoven] 1 MG tablet 2 mg PO TU RF: 0 estradiol [Estrace] 42.5 GM cream 1 g vaginal QODAY PRN (Reason: DRYNESS) RF: 0 multivitamin with folic acid [Thera] 1 TABLET tablet 1 tab PO DAILY RF: 0 L.acidoph, paracasei,B. lactis 1 EACH capsule 1 ea PO DAILY RF: 0 triamcinolone acetonide [Nasal Allergy] 1 SPRAY aerosol,spray 2 spray NASAL PRN PRN (Reason: Nasal Congestion) RF: 0 biotin 5 MG tablet 5,000 mg PO 1200 RF: 0 diclofenac sodium [Voltaren] 100 GM gel 100 g TP PRN PRN (Reason: Pain) RF: 0 turmeric root extract 500 MG capsule 580 mg PO DAILY RF: 0 melatonin 10 MG tablet 5 mg PO QHS RF: 0 prednisone 5 mg Tablet 5 mg PO PRN PRN (Reason: ARTHRITIS) RF: 0 ascorbic acid (vitamin C) [Vitamin C] 500 mg Tablet 500 mg PO DAILY RF: 0 nitrofurantoin macrocrystal [Macrodantin] 100 mg Capsule 100 mg PO BID RF: 0 furosemide [Lasix] 20 mg Tablet 20 mg PO QODAY RF: 0 metoprolol succinate 25 mg Tablet Extended Release 24 Hr 25 mg PO DAILY RF: 0 fluticasone propionate [Flonase Allergy Relief] 50 mcg/actuation [place],Suspension 1 spray INTRANASAL DAILY RF: 0 Citracal Plus 509-08-0-125 ei-bf-hn-unit Tablet 1 tab PO BID RF: 0 escitalopram oxalate [Lexapro] 10 mg Tablet 10 mg PO DAILY RF: 0 zinc 50 mg Capsule 50 mg PO DAILY RF: 0 cholecalciferol (vitamin D3) [Vitamin D3] 25 mcg (1,000 unit) Tablet,Chewable 25 mcg PO DAILY RF: 0 levothyroxine 25 mcg Capsule 25 mcg PO DAILY RF: 0 omeprazole magnesium 20 mg Capsule,Delayed Release(Dr/Ec) 40 mg PO DAILY RF: 0 cranberry 450 mg Tablet 450 mg PO DAILY RF: 0 calcium carb and citrat-mag ox 200 mg calcium- 50 mg Tablet 1 tab PO DAILY RF: 0 Glucosamine Chondroitin 550-30-1 mg Capsule 1 cap PO QHS RF: 0 acetaminophen [Tylenol] 325 mg Tablet 650 mg PO Q6H PRN (Reason: Pain) RF: 0 Primary Care Provider: Galina Sainz Referrals: Galina Sainz MD [Primary Care Provider] - Jayde Cordova MD [STAFF PHYSICIAN] - Activity Restrictions/Additional Instructions: You are going to stop your Coumadin for 2 days. You are going to take the Aygestin 5 mg twice a day for 5 days. Please return here for worsening bleeding, dizziness, chest pain, any other concerns. Please follow-up with Dr. Cordova Print Language: [place]guill[place] Disposition Disposition: Home, Self Care
[2021-08-26 12:50] LABS: Absolute Lymphocyte Count 1.15 X10^3/uL (0.83-4.51); Absolute Neutrophil Count 3.3 X10^3/uL (2.0-7.7); Basophil# 0.02 X10^3/uL; Basophil% 0.4 % (0-1); Eosinophils% 1.9 % (0-5); Hematocrit 25.8 % (37-47); Lymphocyte # 1.15 X10^3/ul (0.83-4.51); Lymphocyte % 21.5 % (19-41); Mean Corpuscular Volume 90.2 fL (81-99); Mean Platelet Vol. 9.3 fl (6.2-12.0); Monocyte# 0.78 X10^3/uL; Monocyte% 14.6 % (0-10); NRBC Flagged by Analyzer 0 % (0-5); Neutrophil # 3.27 X10^3/uL (2.7-7.7); Neutrophil % 61.2 % (47-70); Platelet Count 155 K/mm3 (150-450); RBC Distribution Width CV 17.1 % (11.6-14.6); RBC Distribution Width SD 56.8 fl (35.1-43.9); Red Blood Count 2.86 M/mm3 (4.2-5.4); White Blood Count 5.3 K/mm3 (4.4-11.0)
[2021-08-26 12:59] LABS: International Normalized Ratio 2.9; Prothrombin Time (Protime)PT. 29.6 SECONDS (11.7-14.9)
[2021-08-26 13:01] VITALS: BP 105/52; BP 109/55; BP 111/49; PULSE 70; PULSE 71; PULSE 73
[2021-08-26 13:02] LABS: Anion Gap 3 (5-15); BUN 12 mg/dL (7-18); BUN/Creat Ratio 15.6 RATIO (10-20); Calcium,Total 8.7 mg/dL (8.5-10.1); Chloride 109 mmol/L (98-107); Creatinine, Serum 0.77 mg/dL (0.55-1.02); EST Glomerular Filtration Rate 76 mL/min (>60); Est Glom Filt Rate - Afr Amer 92 mL/min (>60); Glucose 111 mg/dL (74-106); Potassium 4.1 mmol/L (3.5-5.1); Sodium Level 140 mmol/L (136-145)
--- NOTE | 2021-08-26 13:51 | ED.RN ---
ASSISTED ILANA PIMENTEL WITH PELVIC EXAM.
[2021-08-26 14:42] VITALS: PULSE 76; RESP 17; O2SAT 97
== END 2021-08-26 14:43 | disposition home or self-care (01) ==
PROVIDERS: Nurse Practitioner; Emergency Provider Emergency Medicine; PCP Internal Medicine; Visit Provider Emergency Medicine
DX: N99.821 Postprocedural hemorrhage of a genitourinary system organ or structure following other procedure (principal); M06.9 Rheumatoid arthritis, unspecified; I48.91 Unspecified atrial fibrillation; N93.9 Abnormal uterine and vaginal bleeding, unspecified; R53.1 Weakness; K21.9 Gastro-esophageal reflux disease without esophagitis; Z79.01 Long term (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 anticoagulants; Z79.890 Hormone replacement therapy; Z79.899 Other long term (current) drug therapy
CPT/HCPCS: 80048; 85025; 85610; 86850; 86900; 86901; 99284; A4216

== ENCOUNTER 2021-10-18 09:47 | Emergency (ER) | payer MEDICARE, BC, SELFPAY ==
[2021-10-18] VITALS (11 sets, daily range): BP systolic 106–134; BP diastolic 46–68; PULSE 67–81; RESP 13–18; TEMP 36–37.2; O2SAT 97–100; BMI 27.4
--- NOTE | 2021-10-18 10:08 | EKG12_ITS ---
Test Reason : fever Blood Pressure : / mmHG Vent. Rate : 070 BPM Atrial Rate : 000 BPM P-R Int : 000 ms QRS Dur : 082 ms QT Int : 454 ms P-R-T Axes : 000 -13 030 degrees QTc Int : 490 ms Normal sinus rhythm Abnormal ECG Confirmed by SHABBIR PANG, REBECCA ([id number]), science editor GAYE KENDRICK ([id number]) on 10/19/2021 9:15:37 AM Referred By: Scott Confirmed By:REBECCA SHEA MD
--- NOTE | 2021-10-18 10:42 | EX.ED.DYSGE1 ---
HPI <OLIVE Jones - Last Filed: 10/18/21 12:15> History of Present Illness Chief Complaint: Abn Labs Narrative Narrative: 86-year-old female with history of anemia, breast cancer, colon cancer presents to the emergency department with a hemoglobin of 6.5, dizziness, shortness of breath, and now is positive for COVID-19. The patient was scheduled for an outpatient transfusion of packed red blood cells secondary to the hemoglobin of 6.5, however Friday which was 2 days ago the patient developed rigors, felt fever and chills and myalgias. Patient tested positive for COVID-19 this morning. The primary physician told her to go to the emergency department for further evaluation. Patient denies any chest pain, patient that she shortness of breath on exertion, states that her stools are dark however there is no bright red blood. Denies any nausea or vomiting. PFSH <OLIVE Jones - Last Filed: 10/18/21 12:15> [facility] Medical History (Updated 10/18/21 @ 12:12 by OLIVE Jones) Anemia Back pain BiPAP (biphasic positive airway pressure) dependence Bladder disease Breast CA Cancer Cardiology follow-up encounter Cirrhosis Depression Gastric reflux History of atrial fibrillation History of diverticulitis History of echocardiogram History of edema History of esophageal varices with bleeding History of IBS History of pain when walking History of rheumatic fever History of steroid therapy History of stress test Hx of squamous cell carcinoma Injury of head and neck Leg cramps Loss of hearing Migraine headache Non-smoker Open wound Restless legs Rheumatoid arthritis Syncope Thyroid disease Wears glasses Home Medications L.acidoph, paracasei,B. lactis 10 billion cell capsule 1 ea PO DAILY 08/30/14 [History Last Taken Unknown] docusate sodium 100 mg capsule (DOK) 100 mg PO DAILY PRN Constipation 08/30/14 [History Last Taken Unknown] estradiol 0.01% (0.1 mg/gram) vaginal cream (Estrace) 1 g vaginal QODAY PRN DRYNESS 08/30/14 [History Last Taken Unknown] gabapentin 600 mg tablet 300 mg PO QHS 08/30/14 [History Last Taken Unknown] multivitamin with folic acid 400 mcg tablet (Thera) 1 tab PO DAILY 08/30/14 [History Last Taken Unknown] warfarin 1 mg tablet (Jantoven) 2 mg PO TU 08/30/14 [History Last Taken Unknown] warfarin 3 mg tablet (Jantoven) 1 mg PO SUMOWETHSA 08/30/14 [History Last Taken 08/22/21 23:00] biotin 5 mg tablet 5,000 mg PO 1200 03/26/18 [History Last Taken Unknown] diclofenac sodium 1 % topical gel (Voltaren) 100 g TP PRN PRN Pain 03/26/18 [History Last Taken Unknown] melatonin 10 mg sublingual tablet 5 mg PO QHS 03/26/18 [History Last Taken Unknown] triamcinolone acetonide 55 mcg nasal spray aerosol (Nasal Allergy) 2 spray PRN PRN Nasal Congestion 03/26/18 [History Last Taken Unknown] turmeric root extract 500 mg capsule 580 mg PO DAILY 03/26/18 [History Last Taken Unknown] acetaminophen 325 mg tablet (Tylenol) 650 mg PO Q6H PRN Pain 08/20/21 [History Last Taken Unknown] ascorbic acid (vitamin C) 500 mg tablet (Vitamin C) 500 mg PO DAILY 08/20/21 [History Last Taken Unknown] calcium carbonate,citrate-magnesium oxide 200 mg calcium-50 mg tablet 1 tab PO DAILY 08/20/21 [History Last Taken Unknown] teejkwx-fau-nww [id number] 250 mg-40 mg-5 mg-125 unit tablet 1 tab PO BID 08/20/21 [History Last Taken Unknown] cholecalciferol (vitamin D3) 25 mcg (1,000 unit) chewable tablet (Vitamin D3) 25 mcg PO DAILY 08/20/21 [History Last Taken Unknown] cranberry fruit 450 mg tablet (cranberry) 450 mg PO DAILY 08/20/21 [History Last Taken Unknown] escitalopram oxalate 10 mg tablet (Lexapro) 10 mg PO DAILY 08/20/21 [History Last Taken Unknown] fluticasone propionate 50 mcg/actuation nasal spray,suspension (Flonase Allergy Relief) 1 spray intranasal DAILY 08/20/21 [History Last Taken Unknown] furosemide 20 mg tablet (Lasix) 20 mg PO QODAY 08/20/21 [History Last Taken Unknown] glucosamine sulf dipot chlr,msm,chond 550 mg-C 30 mg-chantale 1 mg capsule (Glucosamine Chondroitin) 1 cap PO QHS 08/20/21 [History Last Taken Unknown] levothyroxine 25 mcg capsule 25 mcg PO DAILY 08/20/21 [History Last Taken 08/23/21 07:15] metoprolol succinate 25 mg tablet,extended release 24 hr 25 mg PO DAILY 08/20/21 [History Last Taken 08/23/21 07:15] nitrofurantoin macrocrystal 100 mg capsule (Macrodantin) 100 mg PO BID 08/20/21 [History Last Taken Unknown] omeprazole magnesium 20 mg capsule,delayed release 40 mg PO DAILY 08/20/21 [History Last Taken 08/23/21 07:15] prednisone 5 mg tablet 5 mg PO PRN PRN ARTHRITIS 08/20/21 [History Last Taken Unknown] zinc 50 mg capsule 50 mg PO DAILY 08/20/21 [History Last Taken Unknown] norethindrone acetate 5 mg tablet (Aygestin) 5 mg PO BID #10 tabs 08/26/21 [Rx Last Taken Unknown] nirmatrelvir 300 mg (150 mg x2)-ritonavir 100 mg tablet,dose pack(EUA) (Paxlovid) See Rx Instructions PO .COMPLEX #30 tabs 10/18/21 [Rx Last Taken Unknown] Allergy/AdvReac Type Severity Reaction Status Date / Time DESMOND Inhibitors Allergy Unknown Verified 10/18/21 09:50 adhesive Allergy Unknown Verified 10/18/21 09:50 cyclobenzaprine HCl Allergy Unknown Verified 10/18/21 09:50 [From Flexeril] diclofenac sodium Allergy Unknown Verified 10/18/21 09:50 [From Arthrotec] hydrochlorothiazide Allergy Unknown Verified 10/18/21 09:50 lisinopril [From Zestril] Allergy Unknown Verified 10/18/21 09:50 metronidazole [From Flagyl] Allergy Unknown Verified 10/18/21 09:50 misoprostol [From Arthrotec] Allergy Unknown Verified 10/18/21 09:50 naproxen Allergy Unknown Verified 10/18/21 09:50 paroxetine HCl [From Paxil] Allergy Unknown Verified 10/18/21 09:50 prednisolone acetate Allergy Unknown Verified 10/18/21 09:50 [From Blephamide] sulfacetamide sodium Allergy Unknown Verified 10/18/21 09:50 [From Blephamide] Surgical History H/O mastectomy History of esophagogastroduodenoscopy (EGD) Hx of colonoscopy Hx of mastectomy Hx of oophorectomy Hx of resection of small bowel Hx of tonsillectomy Social History Smoking Status: Never smoker ROS <OLIVE Jones - Last Filed: 10/18/21 12:15> ROS ED ROS Narrative Constitutional: Negative for weight loss, weakness. Positive fever and chills Eyes: Negative for vision loss, vision change, double vision ENT: Negative for any sore throat, ear pain, congestion Cardiovascular: Negative for any chest pain, tightness, palpitations Respiratory: Negative for any cough, sputum production, hemoptysis, positive for dyspnea, dyspnea on exertion, orthopnea Gastrointestinal: Negative for any abdominal pain, nausea, vomiting, diarrhea, constipation, blood in vomit. Positive for dark stool : Negative for any urinary frequency, dysuria, retention, blood in urine Muscle skeletal: Negative for any muscle joint pain, stiffness, arthralgias, neck pain, back pain. Positive for myalgias Neurological: Negative for any headache, syncope, numbness or tingling. Positive for dizziness Skin: Negative for any rashes, lumps, itching, abrasions, lacerations Psychiatric: Negative for any depression, anxiety, stress, suicidal ideation, homicidal ideation Hematologic: Negative for any easy bruising, excessive bruising, easy bleeding Allergies: Negative for any eczema, hives, rash EXAM <OLIVE Jones - Last Filed: 10/18/21 12:15> Physical Exam Narrative Exam Narrative: Vital signs reviewed. Patient appears well, patient is no distress at this time. HEET: Head normocephalic atraumatic, TMs clear bilaterally. Posterior pharynx is clear, moist mucous membranes. Nares clear bilaterally. Neck: Supple with no lymphadenopathy or tenderness. No signs of meningismus, negative jolt sign. Cardiac: Regular rate and rhythm no murmurs gallops or rubs, equal peripheral pulses bilaterally. Respiratory: Lungs clear to auscultation bilaterally. No chest tenderness. Abdomen: Soft, nontender, nondistended. No abdominal bruit or pulsatile masses. No hepatosplenomegaly Extremities: No peripheral edema, no signs of gross trauma or deformity. Active full range of motion of all extremities. Neuro: Cranial nerves II through XII intact, no focal neurological deficits. Skin: Clean dry and intact with no rash, purpura, petechiae, vesicles or pustules. Backs/flank: No CVA tenderness, no midline spinal tenderness, no deformity. Psych: Normal mood and affect. No SI, HI or acute psychosis. Rectal: Rectal exam was completed with female chief librarian music department, rectal vault had minimal stool, there is no bright red bleeding, no bleeding hemorrhoids, no masses felt. Const Vital Signs: 10/18/21 09:50 10/18/21 11:00 Temperature 99 F Temperature Source Temporal Pulse Rate 80 Respiratory Rate 14 Respiratory Effort Normal Short of Breath Respiratory Pattern Normal Blood Pressure 106/46 L Blood Pressure Mean 66 Pulse Ox 97 Oxygen Delivery Method Room Air <Dr. Howie Brothers DO - Last Filed: 10/21/21 01:40> Physical Exam Const Vital Signs: 10/18/21 09:50 10/18/21 11:00 Temperature 99 F Temperature Source Temporal Pulse Rate 80 Respiratory Rate 14 Respiratory Effort Normal Short of Breath Respiratory Pattern Normal Blood Pressure 106/46 L Blood Pressure Mean 66 Pulse Ox 97 Oxygen Delivery Method Room Air [facility] <OLIVE Jones - Last Filed: 10/18/21 12:15> [facility] Lab Data Labs: Laboratory Results - last 24 hr 10/17/21 10/18/21 10/18/21 14:02 10:30 10:30 WBC 5.5 RBC 2.39 L Hgb 6.2 L Hct 20.2 L MCV 84.5 MCH 25.9 L MCHC 30.7 L RDW Std Deviation 53.0 H RDW Coeff of Laureen 17.2 H Plt Count 140 L MPV 8.9 Immature Gran % (Auto) 0.400 Neut % (Auto) 57.4 Lymph % (Auto) 25.9 Carlton % (Auto) 14.5 H Eos % (Auto) 1.4 Baso % (Auto) 0.4 Absolute Neuts (auto) 3.2 Absolute Lymphs (auto) 1.43 Nucleated RBC % 0 PT 19.9 H INR 1.7 Sodium Potassium Chloride Carbon Dioxide Anion Gap BUN Creatinine Estim Creat Clear Calc Est GFR (MDRD) Af Amer Est GFR (MDRD) Non-Af BUN/Creatinine Ratio Glucose Calcium Iron TIBC Iron Saturation Ferritin Urine Color Urine Clarity Urine pH Ur Specific [place] Urine Protein Urine Glucose (UA) Urine Ketones Urine Occult Blood Urine Nitrite Urine Bilirubin Urine Urobilinogen Ur Leukocyte Esterase Urine RBC Urine WBC Ur Squamous Epith Cells Urine Bacteria Urine Mucus Blood Type A POSITIVE Antibody Screen NEGATIVE Crossmatch See Detail 10/18/21 10/18/21 10/18/21 10:30 10:30 11:25 WBC RBC Hgb Hct MCV MCH MCHC RDW Std Deviation RDW Coeff of Laureen Plt Count MPV Immature Gran % (Auto) Neut % (Auto) Lymph % (Auto) Carl[place] % (Auto) Eos % (Auto) Baso % (Auto) Absolute Neuts (auto) Absolute Lymphs (auto) Nucleated RBC % PT INR Sodium 140 Potassium 3.9 Chloride 111 H Carbon Dioxide 25.0 Anion Gap 4 L BUN 17 Creatinine 0.72 Estim Creat Clear Calc 38.50 Est GFR (MDRD) Af Amer 99 Est GFR (MDRD) Non-Af 82 BUN/Creatinine Ratio 23.5 H Glucose 113 H Calcium 8.1 L Iron 25 L TIBC 371 Iron Saturation 6.7 L Ferritin 10 Urine Color Yellow Urine Clarity Clear Urine pH 6.5 Ur Specific [place] 1.005 Urine Protein Negative Urine Glucose (UA) Normal Urine Ketones Negative Urine Occult Blood Negative Urine Nitrite Negative Urine Bilirubin Negative Urine Urobilinogen Normal Ur Leukocyte Esterase 100 H Urine RBC 0 SEEN Urine WBC 0 SEEN Ur Squamous Epith Cells 0 SEEN Urine Bacteria 0 SEEN Urine Mucus 0 SEEN Blood Type Antibody Screen Crossmatch Radiography Diagnostic Testing: Clinical Impression(s) from Imaging Studies Chest X-Ray 10/18/21 11:25 IMPRESSION: No acute findings in the chest. Electronically Signed: Con Jones MD at 11:40 EDT , EKG Sinus rhythm: Attestation: I personally reviewed and interpreted this EKG as follows: Interpretation: Sinus Rhythm Comments: No acute ST elevation, 70 bpm, <Dr. Howie Brothers, DO - Last Filed: 10/21/21 01:40> MDM MDM Narrative Medical decision making narrative: Attending note: Patient seen and evaluated with cat skinner. I perform my own [id number] evaluation. I agree with the plan of work-up. Sent in with hemoglobin of 6.5. Reports lightheaded symptoms. History of chronic anemia with hemoglobin around 8. Notes black stools. Had chills 2 days ago COVID testing obtained at home today positive. Daughter called transfusion center with plan transfusion was told go to ER. Exam alert nontoxic patient vital signs stable. Mild pale conjunctiva. Rectal exam per cat skinner return Hemoccult negative. Hemoglobin 6.2. Discussed blood transfusions for which they agreed. 2 units was ordered through the ED. Patient like to go home. Iron studies were ordered prior to blood transfusions with low iron and saturation. normal TIBC. Discharged with outpatient follow-up. Lab Data Labs: Laboratory Results - last 24 hr 10/17/21 10/18/21 10/18/21 14:02 10:30 10:30 WBC 5.5 RBC 2.39 L Hgb 6.2 L Hct 20.2 L MCV 84.5 MCH 25.9 L MCHC 30.7 L RDW Std Deviation 53.0 H RDW Coeff of Laureen 17.2 H Plt Count 140 L MPV 8.9 Immature Gran % (Auto) 0.400 Neut % (Auto) 57.4 Lymph % (Auto) 25.9 Carlton % (Auto) 14.5 H Eos % (Auto) 1.4 Baso % (Auto) 0.4 Absolute Neuts (auto) 3.2 Absolute Lymphs (auto) 1.43 Nucleated RBC % 0 PT 19.9 H INR 1.7 Sodium Potassium Chloride Carbon Dioxide Anion Gap BUN Creatinine Estim Creat Clear Calc Est GFR (MDRD) Af Amer Est GFR (MDRD) Non-Af BUN/Creatinine Ratio Glucose Calcium Iron TIBC Iron Saturation Ferritin Urine Color Urine Clarity Urine pH Ur Specific [place] Urine Protein Urine Glucose (UA) Urine Ketones Urine Occult Blood Urine Nitrite Urine Bilirubin Urine Urobilinogen Ur Leukocyte Esterase Urine RBC Urine WBC Ur Squamous Epith Cells Urine Bacteria Urine Mucus Blood Type A POSITIVE Antibody Screen NEGATIVE Crossmatch See Detail 10/18/21 10/18/21 10/18/21 10:30 10:30 11:25 WBC RBC Hgb Hct MCV MCH MCHC RDW Std Deviation RDW Coeff of Laureen Plt Count MPV Immature Gran % (Auto) Neut % (Auto) Lymph % (Auto) Carl[place] % (Auto) Eos % (Auto) Baso % (Auto) Absolute Neuts (auto) Absolute Lymphs (auto) Nucleated RBC % PT INR Sodium 140 Potassium 3.9 Chloride 111 H Carbon Dioxide 25.0 Anion Gap 4 L BUN 17 Creatinine 0.72 Estim Creat Clear Calc 38.50 Est GFR (MDRD) Af Amer 99 Est GFR (MDRD) Non-Af 82 BUN/Creatinine Ratio 23.5 H Glucose 113 H Calcium 8.1 L Iron 25 L TIBC 371 Iron Saturation 6.7 L Ferritin 10 Urine Color Yellow Urine Clarity Clear Urine pH 6.5 Ur Specific [place] 1.005 Urine Protein Negative Urine Glucose (UA) Normal Urine Ketones Negative Urine Occult Blood Negative Urine Nitrite Negative Urine Bilirubin Negative Urine Urobilinogen Normal Ur Leukocyte Esterase 100 H Urine RBC 0 SEEN Urine WBC 0 SEEN Ur Squamous Epith Cells 0 SEEN Urine Bacteria 0 SEEN Urine Mucus 0 SEEN Blood Type Antibody Screen Crossmatch Radiography Diagnostic Testing: Clinical Impression(s) from Imaging Studies Chest X-Ray 10/18/21 11:25 IMPRESSION: No acute findings in the chest. Electronically Signed: Con Jones MD at 11:40 EDT , Discharge Plan Triage Chief Complaint: Abn Labs ED Midlevel Provider: Sal Duke ED Provider: Howie Brothers Dx/Rx/DC Orders Clinical Impression: Acute anemia, Low iron, Fatigue, COVID-19 Instructions: Anemia, Coronavirus Disease 2019 (COVID-19): Caring for Yourself or Others Prescriptions: New Paxlovid (EUA) 300 mg (150 mg x 2)-100 mg tablets,dose pack See Rx Instructions .ROUTE .COMPLEX Qty: 30 0RF Rx Instructions: take TWO 150 mg tablets of nirmatrelvir with ONE 100 mg tablet of ritonavir twice daily for 5 days No Action gabapentin 600 MG tablet 300 mg PO QHS warfarin [Jantoven] 3 MG tablet 1 mg PO SUMOWETHSA docusate sodium [DOK] 100 MG capsule 100 mg PO DAILY PRN (Reason: Constipation) warfarin [Jantoven] 1 MG tablet 2 mg PO TU estradiol [Estrace] 42.5 GM cream 1 g vaginal QODAY PRN (Reason: DRYNESS) multivitamin with folic acid [Thera] 1 TABLET tablet 1 tab PO DAILY L.acidoph, paracasei,B. lactis 1 EACH capsule 1 ea PO DAILY triamcinolone acetonide [Nasal Allergy] 1 SPRAY aerosol,spray 2 spray NASAL PRN PRN (Reason: Nasal Congestion) biotin 5 MG tablet 5,000 mg PO 1200 diclofenac sodium [Voltaren] 100 GM gel 100 g TP PRN PRN (Reason: Pain) turmeric root extract 500 MG capsule 580 mg PO DAILY melatonin 10 MG tablet 5 mg PO QHS prednisone 5 mg Tablet 5 mg PO PRN PRN (Reason: ARTHRITIS) ascorbic acid (vitamin C) [Vitamin C] 500 mg Tablet 500 mg PO DAILY nitrofurantoin macrocrystal [Macrodantin] 100 mg Capsule 100 mg PO BID furosemide [Lasix] 20 mg Tablet 20 mg PO QODAY metoprolol succinate 25 mg Tablet Extended Release 24 Hr 25 mg PO DAILY fluticasone propionate [Flonase Allergy Relief] 50 mcg/actuation [place],Suspension 1 spray INTRANASAL DAILY Citracal Plus [id number] [id number] Tablet 1 tab PO BID escitalopram oxalate [Lexapro] 10 mg Tablet 10 mg PO DAILY zinc 50 mg Capsule 50 mg PO DAILY cholecalciferol (vitamin D3) [Vitamin D3] 25 mcg (1,000 unit) Tablet,Chewable 25 mcg PO DAILY levothyroxine 25 mcg Capsule 25 mcg PO DAILY omeprazole magnesium 20 mg Capsule,Delayed Release(Dr/Ec) 40 mg PO DAILY cranberry 450 mg Tablet 450 mg PO DAILY calcium carb and citrat-mag ox 200 mg calcium- 50 mg Tablet 1 tab PO DAILY Glucosamine Chondroitin 550-30-1 mg Capsule 1 cap PO QHS acetaminophen [Tylenol] 325 mg Tablet 650 mg PO Q6H PRN (Reason: Pain) norethindrone acetate [Aygestin] 5 mg tablet 5 mg PO BID Qty: 10 0RF Primary Care Provider: Galina Sainz Referrals: Galina Sainz MD [Primary Care Provider] - Activity Restrictions/Additional Instructions: Please follow-up with your PCP. Please use Tylenol for any fevers. Disposition Disposition: Home, Self Care Discharge Date/Time: 10/18/21 18:15
[2021-10-18 10:44] LABS: Absolute Lymphocyte Count 1.43 X10^3/uL (0.83-4.51); Absolute Neutrophil Count 3.2 X10^3/uL (2.0-7.7); Basophil# 0.02 X10^3/uL; Basophil% 0.4 % (0-1); Eosinophil# 0.08 X10^3/uL; Eosinophils% 1.4 % (0-5); Hematocrit 20.2 % (37-47); Hemoglobin 6.2 g/dL (12.0-15.0); Lymphocyte # 1.43 X10^3/ul (0.83-4.51); Lymphocyte % 25.9 % (19-41); Mean Corp Hgb Conc 30.7 g/dL (32-36); Mean Corpuscular Hgb 25.9 pg (27.0-32.0); Mean Corpuscular Volume 84.5 fL (81-99); Mean Platelet Vol. 8.9 fl (6.2-12.0); Monocyte% 14.5 % (0-10); NRBC Flagged by Analyzer 0 % (0-5); Neutrophil # 3.17 X10^3/uL (2.7-7.7); Neutrophil % 57.4 % (47-70); Platelet Count 140 K/mm3 (150-450); RBC Distribution Width CV 17.2 % (11.6-14.6); Red Blood Count 2.39 M/mm3 (4.2-5.4); White Blood Count 5.5 K/mm3 (4.4-11.0)
[2021-10-18 10:52] LABS: International Normalized Ratio 1.7; Prothrombin Time (Protime)PT. 19.9 SECONDS (11.7-14.9)
[2021-10-18 11:01] LABS: Anion Gap 4 (5-15); BUN 17 mg/dL (7-18); BUN/Creat Ratio 23.5 RATIO (10-20); Calcium,Total 8.1 mg/dL (8.5-10.1); Chloride 111 mmol/L (98-107); Creatinine, Serum 0.72 mg/dL (0.55-1.02); EST Glomerular Filtration Rate 82 mL/min (>60); Est Glom Filt Rate - Afr Amer 99 mL/min (>60); Glucose 113 mg/dL (74-106); Potassium 3.9 mmol/L (3.5-5.1); Sodium Level 140 mmol/L (136-145)
--- NOTE | 2021-10-18 11:25 | RAD_ITS ---
EXAM: XR CHEST, 1 VIEW CLINICAL INDICATION: Covid TECHNIQUE: Frontal view of the chest. This report was created using [employer] report generation technology. COMPARISON: 03/26/2018 FINDINGS: LUNGS AND PLEURAL SPACES: Unremarkable. No consolidation or edema. No pneumothorax. No effusion. HEART: Unremarkable. Cardiac silhouette not enlarged. MEDIASTINUM: Central airways and mediastinal contour are unremarkable. BONES/JOINTS: Unremarkable. SOFT TISSUES: Unremarkable. TUBES, LINES AND DEVICES: Right-sided Port-A-Cath in stable position. RAD/Chest 1 View (Portable) IMPRESSION: No acute findings in the chest. Electronically Signed: Con Jones MD at 11:40 EDT ,
[2021-10-18 11:46] LABS: Bacteria 0 SEEN /hpf (None Seen); Mucous, Urine 0 SEEN /hpf (<or=2+); Red Blood Cells-Urine 0 SEEN /hpf (0-5); Squamous Epithelial Cells - UA 0 SEEN /hpf (5-10); White Blood Cells 0 SEEN /hpf (0-5)
[2021-10-18 11:51] LABS: Color, Urine Yellow (Yellow); Glucose, Dipstick Normal (Normal); Ketone-Dipstick Negative (Negative); Leukocyte Esterase-Dipstick 100 /ul (Negative); Nitrite-Dipstick Negative (Negative); Occult Blood-Urine Negative /ul (Negative); Protein-Dipstick Negative (Negative); Specific Gravity, Urine 1.005 (1.002-1.030); Urine Bilirubin Dipstick Negative (Negative); Urine Clarity Clear (Clear); Urine Urobilinogen Normal (Normal); Urine pH 6.5 (5.0 - 8.0)
[2021-10-18 11:58] LABS: Ferritin 10 ng/mL (8-252); Iron 25 ug/dL (50-170); Iron Binding Capacity,Total 371 ug/dL (250-450); PERCENT IRON SATURATION 6.7 % (15.0-55.0)
== END 2021-10-18 18:15 | disposition home or self-care (01) ==
PROVIDERS: Nurse Practitioner; Emergency Provider Emergency Medicine; PCP Internal Medicine; Visit Provider Emergency Medicine
DX: U07.1 COVID-19 (principal); D64.9 Anemia, unspecified; Z79.01 Long term (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 anticoagulants; Z79.52 Long term (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 systemic steroids; Z79.899 Other long term (current) drug therapy; Z85.3 Personal history of malignant neoplasm of breast; Z85.038 Personal history of other malignant neoplasm of large intestine
CPT/HCPCS: 36415; 36430; 36591; 71045; 80048; 81001; 82274; 82728; 83540; 83550; 85025; 85610; 86850; 86900; 86901; 86920; 86922; 87086; 93005; 99284; J7040; P9016

== ENCOUNTER → 2021-10-29 | Outpatient (REF) | payer MEDICARE, BC, SELFPAY ==
[2021-10-29 08:18] LABS: Absolute Lymphocyte Count 1.41 X10^3/uL (0.83-4.51); Absolute Neutrophil Count 2.5 X10^3/uL (2.0-7.7); Basophil# 0.03 X10^3/uL; Basophil% 0.6 % (0-1); Eosinophil# 0.12 X10^3/uL; Eosinophils% 2.5 % (0-5); Hematocrit 27.1 % (37-47); Hemoglobin 8.5 g/dL (12.0-15.0); Lymphocyte # 1.41 X10^3/ul (0.83-4.51); Lymphocyte % 29.7 % (19-41); Mean Corp Hgb Conc 31.4 g/dL (32-36); Mean Corpuscular Hgb 27.2 pg (27.0-32.0); Mean Corpuscular Volume 86.6 fL (81-99); Mean Platelet Vol. 10.4 fl (6.2-12.0); Monocyte# 0.69 X10^3/uL; Monocyte% 14.5 % (0-10); NRBC Flagged by Analyzer 0 % (0-5); Neutrophil % 52.7 % (47-70); Platelet Count 164 K/mm3 (150-450); RBC Distribution Width SD 55.9 fl (35.1-43.9); Red Blood Count 3.13 M/mm3 (4.2-5.4); White Blood Count 4.8 K/mm3 (4.4-11.0)
[2021-10-29 08:54] LABS: ALB/GLOB Ratio 0.6 RATIO (0.9-2.4); AST(SGOT) 27 U/L (15-37); Alanine Aminotransfer ALT/SGPT 23 U/L (13-56); Albumin, Serum 2.6 g/dL (3.2-5.0); Alkaline Phosphatase 77 U/L (45-117); Anion Gap 8 (5-15); BUN 18 mg/dL (7-18); BUN/Creat Ratio 23.5 RATIO (10-20); Calcium,Total 9.2 mg/dL (8.5-10.1); Chloride 112 mmol/L (98-107); Creatinine, Serum 0.77 mg/dL (0.55-1.02); EST Glomerular Filtration Rate 76 mL/min (>60); Est Glom Filt Rate - Afr Amer 92 mL/min (>60); Globulin 4.4 g/dL (2.2-4.2); Glucose 82 mg/dL (74-106); Potassium 3.9 mmol/L (3.5-5.1); Sodium Level 144 mmol/L (136-145); Thyroid Stim Hormone (TSH) 1.37 uIU/mL (0.358-3.74)
== END ==
LOC: OLS.WHLTSB 04:00
PROVIDERS: PCP Internal Medicine; Referring Provider Family Medicine; Visit Provider Family Medicine
DX: E03.9 Hypothyroidism, unspecified (principal); I49.9 Cardiac arrhythmia, unspecified; F32.A Depression, unspecified; C44.42 Squamous cell carcinoma of skin of scalp and neck; C50.311 Malignant neoplasm of lower-inner quadrant of right female breast; D05.82 Other specified type of carcinoma in situ of left breast
CPT/HCPCS: 36415; 80053; 84443; 85025

== ENCOUNTER → 2021-11-20 | Outpatient (REF) | payer MEDICARE, BC, SELFPAY ==
[2021-11-20 11:05] LABS: Absolute Lymphocyte Count 1.35 X10^3/uL (0.83-4.51); Absolute Neutrophil Count 3.1 X10^3/uL (2.0-7.7); Basophil# 0.04 X10^3/uL; Basophil% 0.8 % (0-1); Eosinophil# 0.09 X10^3/uL; Eosinophils% 1.7 % (0-5); Hematocrit 28.2 % (37-47); Hemoglobin 8.5 g/dL (12.0-15.0); Lymphocyte # 1.35 X10^3/ul (0.83-4.51); Mean Corp Hgb Conc 30.1 g/dL (32-36); Mean Corpuscular Hgb 26.6 pg (27.0-32.0); Mean Corpuscular Volume 88.1 fL (81-99); Mean Platelet Vol. 9.8 fl (6.2-12.0); Monocyte% 11.5 % (0-10); NRBC Flagged by Analyzer 0 % (0-5); Neutrophil # 3.11 X10^3/uL (2.7-7.7); Neutrophil % 59.8 % (47-70); Platelet Count 184 K/mm3 (150-450); RBC Distribution Width CV 19.5 % (11.6-14.6); White Blood Count 5.2 K/mm3 (4.4-11.0)
== END ==
LOC: OLS.WHLTSB 05:00
PROVIDERS: PCP Internal Medicine; Visit Provider Family Medicine
DX: I48.91 Unspecified atrial fibrillation (principal); K59.00 Constipation, unspecified; K21.9 Gastro-esophageal reflux disease without esophagitis; F32.A Depression, unspecified; K57.12 Diverticulitis of small intestine without perforation or abscess without bleeding; K57.30 Diverticulosis of large intestine without perforation or abscess without bleeding
CPT/HCPCS: 36415; 85025

== ENCOUNTER → 2021-11-26 | Outpatient (REF) | payer MEDICARE, BC, SELFPAY ==
[2021-11-26 08:30] LABS: INR Fingerstick 1.1; Prothrombin Time Fingerstick 13.7 SEC (11.7-14.9)
== END ==
LOC: OLS.WHLTSB 04:00
PROVIDERS: PCP Internal Medicine; Referring Provider Family Medicine; Visit Provider Family Medicine
DX: I48.91 Unspecified atrial fibrillation (principal); K59.00 Constipation, unspecified; K21.9 Gastro-esophageal reflux disease without esophagitis; F32.A Depression, unspecified; K57.12 Diverticulitis of small intestine without perforation or abscess without bleeding; K57.30 Diverticulosis of large intestine without perforation or abscess without bleeding
CPT/HCPCS: 36416; 85610

== ENCOUNTER → 2021-12-03 | Outpatient (REF) | payer MEDICARE, BC, SELFPAY ==
[2021-12-03 08:15] LABS: Absolute Lymphocyte Count 1.47 X10^3/uL (0.83-4.51); Absolute Neutrophil Count 2.5 X10^3/uL (2.0-7.7); Basophil# 0.04 X10^3/uL; Basophil% 0.8 % (0-1); Eosinophil# 0.14 X10^3/uL; Eosinophils% 2.9 % (0-5); Hematocrit 29.1 % (37-47); Hemoglobin 8.6 g/dL (12.0-15.0); Lymphocyte # 1.47 X10^3/ul (0.83-4.51); Lymphocyte % 29.9 % (19-41); Mean Corp Hgb Conc 29.6 g/dL (32-36); Mean Corpuscular Volume 87.9 fL (81-99); Mean Platelet Vol. 10.1 fl (6.2-12.0); Monocyte# 0.72 X10^3/uL; Monocyte% 14.7 % (0-10); NRBC Flagged by Analyzer 0 % (0-5); Neutrophil # 2.53 X10^3/uL (2.7-7.7); Neutrophil % 51.5 % (47-70); Platelet Count 173 K/mm3 (150-450); RBC Distribution Width CV 19.6 % (11.6-14.6); RBC Distribution Width SD 62.5 fl (35.1-43.9); Red Blood Count 3.31 M/mm3 (4.2-5.4); White Blood Count 4.9 K/mm3 (4.4-11.0)
[2021-12-03 08:29] LABS: International Normalized Ratio 2.4; Prothrombin Time (Protime)PT. 25.8 SECONDS (11.7-14.9)
[2021-12-03 08:32] LABS: ALB/GLOB Ratio 0.5 RATIO (0.9-2.4); AST(SGOT) 24 U/L (15-37); Alanine Aminotransfer ALT/SGPT 22 U/L (13-56); Albumin, Serum 2.6 g/dL (3.2-5.0); Alkaline Phosphatase 85 U/L (45-117); Anion Gap 6 (5-15); BUN 14 mg/dL (7-18); BUN/Creat Ratio 20.7 RATIO (10-20); Calcium,Total 9.3 mg/dL (8.5-10.1); Chloride 113 mmol/L (98-107); Creatinine, Serum 0.68 mg/dL (0.55-1.02); EST Glomerular Filtration Rate 88 mL/min (>60); Est Glom Filt Rate - Afr Amer 106 mL/min (>60); Globulin 4.8 g/dL (2.2-4.2); Glucose 84 mg/dL (74-106); Protein, Total 7.4 g/dL (6.4-8.2); Sodium Level 144 mmol/L (136-145)
== END ==
LOC: OLS.WHLTSB 05:00
PROVIDERS: PCP Internal Medicine; Visit Provider Family Medicine
DX: I49.9 Cardiac arrhythmia, unspecified (principal); F32.A Depression, unspecified; C44.42 Squamous cell carcinoma of skin of scalp and neck; C50.311 Malignant neoplasm of lower-inner quadrant of right female breast; D05.82 Other specified type of carcinoma in situ of left breast; I48.91 Unspecified atrial fibrillation; K59.00 Constipation, unspecified; K21.9 Gastro-esophageal reflux disease without esophagitis; K57.12 Diverticulitis of small intestine without perforation or abscess without bleeding; K57.30 Diverticulosis of large intestine without perforation or abscess without bleeding
CPT/HCPCS: 36415; 80053; 85025; 85610

== ENCOUNTER → 2021-12-10 | Outpatient (REF) | payer MEDICARE, BC, SELFPAY ==
[2021-12-10 09:45] LABS: INR Fingerstick 2.4; Prothrombin Time Fingerstick 28.1 SEC (11.7-14.9)
== END ==
LOC: OLS.WHLTSB 05:00
PROVIDERS: PCP Internal Medicine; Visit Provider Family Medicine
DX: K59.00 Constipation, unspecified (principal); I48.91 Unspecified atrial fibrillation; K21.9 Gastro-esophageal reflux disease without esophagitis; F32.A Depression, unspecified; K57.12 Diverticulitis of small intestine without perforation or abscess without bleeding; K57.30 Diverticulosis of large intestine without perforation or abscess without bleeding
CPT/HCPCS: 36416; 85610

== ENCOUNTER → 2021-12-17 | Outpatient (REF) | payer MEDICARE, BC, SELFPAY ==
[2021-12-17 08:25] LABS: INR Fingerstick 2.7
== END ==
LOC: OLS.WHLTSB 05:00
PROVIDERS: PCP Internal Medicine; Visit Provider Family Medicine
DX: K59.00 Constipation, unspecified (principal); I48.91 Unspecified atrial fibrillation; K21.9 Gastro-esophageal reflux disease without esophagitis; F32.A Depression, unspecified; K57.12 Diverticulitis of small intestine without perforation or abscess without bleeding; K57.30 Diverticulosis of large intestine without perforation or abscess without bleeding
CPT/HCPCS: 36416; 85610

== ENCOUNTER → 2021-12-22 | Outpatient (REF) | payer MEDICARE, BC, SELFPAY ==
[2021-12-22 12:31] LABS: Absolute Lymphocyte Count 0.98 X10^3/uL (0.83-4.51); Absolute Neutrophil Count 2.1 X10^3/uL (2.0-7.7); Basophil# 0.01 X10^3/uL; Basophil% 0.3 % (0-1); Eosinophil# 0.01 X10^3/uL; Eosinophils% 0.3 % (0-5); Hematocrit 23.9 % (37-47); Hemoglobin 7.5 g/dL (12.0-15.0); Lymphocyte # 0.98 X10^3/ul (0.83-4.51); Lymphocyte % 25.3 % (19-41); Mean Corp Hgb Conc 31.4 g/dL (32-36); Mean Corpuscular Hgb 26.8 pg (27.0-32.0); Mean Corpuscular Volume 85.4 fL (81-99); Mean Platelet Vol. 10.4 fl (6.2-12.0); Monocyte# 0.75 X10^3/uL; Monocyte% 19.4 % (0-10); NRBC Flagged by Analyzer 0 % (0-5); Neutrophil # 2.11 X10^3/uL (2.7-7.7); Neutrophil % 54.4 % (47-70); POSITIVE MORPHOLOGY YES; Platelet Count 136 K/mm3 (150-450); RBC Distribution Width CV 19.5 % (11.6-14.6); RBC Distribution Width SD 61.6 fl (35.1-43.9); White Blood Count 3.9 K/mm3 (4.4-11.0)
[2021-12-22 12:39] LABS: Differential Indicated SCAN CRITERIA MET
[2021-12-22 12:47] LABS: Anion Gap 6 (5-15); BUN 18 mg/dL (7-18); Calcium,Total 8.2 mg/dL (8.5-10.1); Chloride 110 mmol/L (98-107); Creatinine, Serum 0.95 mg/dL (0.55-1.02); EST Glomerular Filtration Rate 60 mL/min (>60); Est Glom Filt Rate - Afr Amer 72 mL/min (>60); Glucose 111 mg/dL (74-106); Potassium 3.8 mmol/L (3.5-5.1); Sodium Level 140 mmol/L (136-145)
== END ==
LOC: OLS.WHLTSB 11:35
PROVIDERS: PCP Internal Medicine; Visit Provider Family Medicine
DX: R50.9 Fever, unspecified (principal); R05.9 Cough, unspecified; K21.9 Gastro-esophageal reflux disease without esophagitis; K59.00 Constipation, unspecified; F32.A Depression, unspecified; E78.5 Hyperlipidemia, unspecified; Z80.3 Family history of malignant neoplasm of breast
CPT/HCPCS: 36415; 80048; 85025

== ENCOUNTER → 2021-12-27 | Outpatient (REF) | payer MEDICARE, BC, SELFPAY ==
[2021-12-27 10:03] LABS: Absolute Lymphocyte Count 1.15 X10^3/uL (0.83-4.51); Absolute Neutrophil Count 0.8 X10^3/uL (2.0-7.7); Eosinophil# 0.03 X10^3/uL; Eosinophils% 1.2 % (0-5); Hematocrit 22.2 % (37-47); Hemoglobin 6.7 g/dL (12.0-15.0); Lymphocyte # 1.15 X10^3/ul (0.83-4.51); Lymphocyte % 47.1 % (19-41); Mean Corp Hgb Conc 30.2 g/dL (32-36); Mean Corpuscular Hgb 26.3 pg (27.0-32.0); Mean Corpuscular Volume 87.1 fL (81-99); Mean Platelet Vol. 10.5 fl (6.2-12.0); Monocyte# 0.44 X10^3/uL; NRBC Flagged by Analyzer 0 % (0-5); Neutrophil # 0.82 X10^3/uL (2.7-7.7); Neutrophil % 33.7 % (47-70); POSITIVE DIFFERENTIAL YES; POSITIVE MORPHOLOGY YES; Platelet Count 104 K/mm3 (150-450); RBC Distribution Width CV 19.7 % (11.6-14.6); Red Blood Count 2.55 M/mm3 (4.2-5.4); White Blood Count 2.4 K/mm3 (4.4-11.0)
[2021-12-27 10:12] LABS: Differential Indicated SCAN CRITERIA MET
[2021-12-27 10:22] LABS: Prothrombin Time (Protime)PT. 30.9 SECONDS (11.7-14.9)
[2021-12-27 10:37] LABS: Anisocytosis 1+; Hypochromasia 2+; Platelet Estimate SLT DEC (ADEQ)
== END ==
LOC: OLS.WHLTSB 05:00
PROVIDERS: PCP Internal Medicine; Visit Provider Family Medicine
DX: I48.91 Unspecified atrial fibrillation (principal); D64.9 Anemia, unspecified; R50.9 Fever, unspecified; R05.9 Cough, unspecified; K21.9 Gastro-esophageal reflux disease without esophagitis; K59.00 Constipation, unspecified; F32.A Depression, unspecified; K63.5 Polyp of colon; K64.9 Unspecified hemorrhoids
CPT/HCPCS: 36415; 85025; 85610

== ENCOUNTER 2021-12-28 11:17 | Emergency (ER) | payer MEDICARE, BC, SELFPAY ==
[2021-12-28 11:18] VITALS: BP 108/52; PULSE 77; RESP 18; TEMP 36.8; O2SAT 98; BMI 27.4
--- NOTE | 2021-12-28 11:50 | EX.ED.DYSGE1 ---
HPI <ARTEMIO Sigala - Last Filed: 12/28/21 13:20> History of Present Illness Chief Complaint: Abn Labs Narrative Narrative: 86-year-old female with past medical history of acute on chronic anemia, polypectomy was sent in by her ECF for a blood transfusion. She had a malignant polyp resection last year by Dr. Turk and since then has intermittent GI bleeding. She needed a blood transfusion 2 months ago. She noticed dark stools over the last few days and her outpatient blood work showed hemoglobin of 7.5 and positive guaiac stool. She is on Coumadin for A. fib and her doctor discontinued this 3 days ago with plans to hold indefinitely. She states she is already noticed her stool lightening since then. She denies chest pain, shortness of breath, palpitations dizziness or lightheadedness. Her PCP recommended transfusion 2 units PRBCs and discharge. PFS <ARTEMIO Sigala - Last Filed: 12/28/21 13:20> [facility] Medical History (Updated 12/28/21 @ 12:54 by ARTEMIO Sigala) Anemia Back pain BiPAP (biphasic positive airway pressure) dependence Bladder disease Breast CA Cancer Cardiology follow-up encounter Cirrhosis Depression Gastric reflux History of atrial fibrillation History of diverticulitis History of echocardiogram History of edema History of esophageal varices with bleeding History of IBS History of pain when walking History of rheumatic fever History of steroid therapy History of stress test Hx of squamous cell carcinoma Injury of head and neck Leg cramps Loss of hearing Migraine headache Non-smoker Open wound Restless legs Rheumatoid arthritis Syncope Thyroid disease Wears glasses Home Medications L.acidoph, paracasei,B. lactis 10 billion cell capsule 1 ea PO DAILY 08/30/14 [History Last Taken Unknown] docusate sodium 100 mg capsule (DOK) 100 mg PO DAILY PRN Constipation 08/30/14 [History Last Taken Unknown] estradiol 0.01% (0.1 mg/gram) vaginal cream (Estrace) 1 g vaginal QODAY PRN DRYNESS 08/30/14 [History Last Taken Unknown] gabapentin 600 mg tablet 300 mg PO QHS 08/30/14 [History Last Taken Unknown] multivitamin with folic acid 400 mcg tablet (Thera) 1 tab PO DAILY 08/30/14 [History Last Taken Unknown] warfarin 1 mg tablet (Jantoven) 2 mg PO TU 08/30/14 [History Last Taken Unknown] warfarin 3 mg tablet (Jantoven) 1 mg PO SUMOWETHSA 08/30/14 [History Last Taken 08/22/21 23:00] biotin 5 mg tablet 5,000 mg PO 1200 03/26/18 [History Last Taken Unknown] diclofenac sodium 1 % topical gel (Voltaren) 100 g TP PRN PRN Pain 03/26/18 [History Last Taken Unknown] melatonin 10 mg sublingual tablet 5 mg PO QHS 03/26/18 [History Last Taken Unknown] triamcinolone acetonide 55 mcg nasal spray aerosol (Nasal Allergy) 2 spray PRN PRN Nasal Congestion 03/26/18 [History Last Taken Unknown] turmeric root extract 500 mg capsule 580 mg PO DAILY 03/26/18 [History Last Taken Unknown] acetaminophen 325 mg tablet (Tylenol) 650 mg PO Q6H PRN Pain 08/20/21 [History Last Taken Unknown] ascorbic acid (vitamin C) 500 mg tablet (Vitamin C) 500 mg PO DAILY 08/20/21 [History Last Taken Unknown] calcium carbonate,citrate-magnesium oxide 200 mg calcium-50 mg tablet 1 tab PO DAILY 08/20/21 [History Last Taken Unknown] swdnfgh-vac-ryn [id number] 250 mg-40 mg-5 mg-125 unit tablet 1 tab PO BID 08/20/21 [History Last Taken Unknown] cholecalciferol (vitamin D3) 25 mcg (1,000 unit) chewable tablet (Vitamin D3) 25 mcg PO DAILY 08/20/21 [History Last Taken Unknown] cranberry fruit 450 mg tablet (cranberry) 450 mg PO DAILY 08/20/21 [History Last Taken Unknown] escitalopram oxalate 10 mg tablet (Lexapro) 10 mg PO DAILY 08/20/21 [History Last Taken Unknown] fluticasone propionate 50 mcg/actuation nasal spray,suspension (Flonase Allergy Relief) 1 spray intranasal DAILY 08/20/21 [History Last Taken Unknown] furosemide 20 mg tablet (Lasix) 20 mg PO QODAY 08/20/21 [History Last Taken Unknown] glucosamine sulf dipot chlr,msm,chond 550 mg-C 30 mg-chantale 1 mg capsule (Glucosamine Chondroitin) 1 cap PO QHS 08/20/21 [History Last Taken Unknown] levothyroxine 25 mcg capsule 25 mcg PO DAILY 08/20/21 [History Last Taken 08/23/21 07:15] metoprolol succinate 25 mg tablet,extended release 24 hr 25 mg PO DAILY 08/20/21 [History Last Taken 08/23/21 07:15] nitrofurantoin macrocrystal 100 mg capsule (Macrodantin) 100 mg PO BID 08/20/21 [History Last Taken Unknown] omeprazole magnesium 20 mg capsule,delayed release 40 mg PO DAILY 08/20/21 [History Last Taken 08/23/21 07:15] prednisone 5 mg tablet 5 mg PO PRN PRN ARTHRITIS 08/20/21 [History Last Taken Unknown] zinc 50 mg capsule 50 mg PO DAILY 08/20/21 [History Last Taken Unknown] norethindrone acetate 5 mg tablet (Aygestin) 5 mg PO BID #10 tabs 08/26/21 [Rx Last Taken Unknown] nirmatrelvir 300 mg (150 mg x2)-ritonavir 100 mg tablet,dose pack(EUA) (Paxlovid) See Rx Instructions PO .COMPLEX #30 tabs 10/18/21 [Rx Last Taken Unknown] Allergy/AdvReac Type Severity Reaction Status Date / Time DESMOND Inhibitors Allergy Unknown Verified 10/18/21 09:50 adhesive Allergy Unknown Verified 10/18/21 09:50 cyclobenzaprine HCl Allergy Unknown Verified 10/18/21 09:50 [From Flexeril] diclofenac sodium Allergy Unknown Verified 10/18/21 09:50 [From Arthrotec] hydrochlorothiazide Allergy Unknown Verified 10/18/21 09:50 lisinopril [From Zestril] Allergy Unknown Verified 10/18/21 09:50 metronidazole [From Flagyl] Allergy Unknown Verified 10/18/21 09:50 misoprostol [From Arthrotec] Allergy Unknown Verified 10/18/21 09:50 naproxen Allergy Unknown Verified 10/18/21 09:50 paroxetine HCl [From Paxil] Allergy Unknown Verified 10/18/21 09:50 prednisolone acetate Allergy Unknown Verified 10/18/21 09:50 [From Blephamide] sulfacetamide sodium Allergy Unknown Verified 10/18/21 09:50 [From Blephamide] Surgical History H/O mastectomy History of esophagogastroduodenoscopy (EGD) Hx of colonoscopy Hx of mastectomy Hx of oophorectomy Hx of resection of small bowel Hx of tonsillectomy Social History Smoking Status: Never smoker ROS <ARTEMIO Sigala - Last Filed: 12/28/21 13:20> ROS ED ROS Narrative Constitutional: Negative for fever, chills, malaise. Eyes: Negative for visual change. ENT: Negative for sore throat, ear pain, rhinorrhea. CVS: Negative for palpitations, chest pain, syncope. Respiratory: Negative for shortness of breath, cough, orthopnea. GI: Positive for melena. Negative for abdominal pain, nausea, vomiting, diarrhea, constipation, hematochezia. : Negative for dysuria, hematuria or frequency. Neuro: Negative for headache, motor/sensory dysfunction. Skin: Negative for rash, abscess, or wound. Musc: Negative for joint pain, swelling, trauma. Heme: Negative for easy bruising, bleeding, lymphadenopathy. EXAM <ARTEMIO Sigala - Last Filed: 12/28/21 13:20> Physical Exam Narrative Exam Narrative: CONST: Patient sitting in no acute distress. EYES: Normal inspection. NECK: Normal inspection. RESP: No respiratory distress, CTAB. CVS: Regular rate and rhythm, no murmur, no gallop. ABD: Soft and nontender, no guarding or rebound, nondistended. SKIN: Color normal, no rash, warm, dry, intact. EXTREMITIES: Normal appearance, no pedal edema. NEURO: Oriented x4. PSYCH: Normal affect. Const Vital Signs: 12/28/21 11:18 12/28/21 12:15 12/28/21 12:17 Temperature 98.2 F Temperature Source Temporal Pulse Rate 77 Respiratory Rate 18 17 Respiratory Pattern Normal Blood Pressure 108/52 L Blood Pressure Mean 70 Blood Pressure Source Blood Pressure Position Blood Pressure Location Pulse Ox 98 Oxygen Delivery Method Room Air 12/28/21 13:28 12/28/21 13:54 12/28/21 14:09 Temperature 99 F 99 F 99.2 F H Temperature Source Temporal Temporal Temporal Pulse Rate 78 86 69 Respiratory Rate 17 18 16 Respiratory Pattern Blood Pressure 121/51 H 120/57 L 106/50 L Blood Pressure Mean 74 78 68 Blood Pressure Source Monitor Monitor Blood Pressure Position Supine Supine Blood Pressure Location Left Arm Left Arm Pulse Ox 98 97 96 Oxygen Delivery Method Room Air Room Air Room Air 12/28/21 15:09 Temperature 98.9 F Temperature Source Temporal Pulse Rate 70 Respiratory Rate 16 Respiratory Pattern Blood Pressure 125/79 H Blood Pressure Mean 94 Blood Pressure Source Monitor Blood Pressure Position Semi-Fowlers Blood Pressure Location Left Arm Pulse Ox 94 Oxygen Delivery Method Room Air <Dr. Howie Brothers DO - Last Filed: 12/28/21 22:15> Physical Exam Const Vital Signs: 12/28/21 11:18 12/28/21 12:15 12/28/21 12:17 Temperature 98.2 F Temperature Source Temporal Pulse Rate 77 Respiratory Rate 18 17 Respiratory Pattern Normal Blood Pressure 108/52 L Blood Pressure Mean 70 Blood Pressure Source Blood Pressure Position Blood Pressure Location Pulse Ox 98 Oxygen Delivery Method Room Air 12/28/21 13:28 12/28/21 13:54 12/28/21 14:09 Temperature 99 F 99 F 99.2 F H Temperature Source Temporal Temporal Temporal Pulse Rate 78 86 69 Respiratory Rate 17 18 16 Respiratory Pattern Blood Pressure 121/51 H 120/57 L 106/50 L Blood Pressure Mean 74 78 68 Blood Pressure Source Monitor Monitor Blood Pressure Position Supine Supine Blood Pressure Location Left Arm Left Arm Pulse Ox 98 97 96 Oxygen Delivery Method Room Air Room Air Room Air 12/28/21 15:09 Temperature 98.9 F Temperature Source Temporal Pulse Rate 70 Respiratory Rate 16 Respiratory Pattern Blood Pressure 125/79 H Blood Pressure Mean 94 Blood Pressure Source Monitor Blood Pressure Position Semi-Fowlers Blood Pressure Location Left Arm Pulse Ox 94 Oxygen Delivery Method Room Air MDM <ARTEMIO Sigala - Last Filed: 12/28/21 13:20> [facility] Narrative Medical decision making narrative: Patient has acute on chronic anemia. She had a positive stool guaiac test yesterday and her primary care has discontinued Coumadin. Her bleeding is a known issue from prior polypectomy and she does not want further intervention. She has no acute symptoms and appears well and nontoxic. Vital signs are unremarkable. Exam is benign. Hemoglobin today is 7.1. It looks like when stable she runs around 8 so she will be given 1 unit PRBCs here with plan to discharge back to [facility]. Lab Data Attestation: I reviewed the patient's lab results. Labs: Laboratory Results - last 24 hr 12/28/21 12/28/21 12/28/21 12:00 12:00 12:00 WBC 2.9 L RBC 2.60 L Hgb 7.1 L Hct 22.5 L MCV 86.5 MCH 27.3 MCHC 31.6 L RDW Std Deviation 63.3 H RDW Coeff of Laureen 19.9 H Plt Count 108 L MPV 10.2 Immature Gran % (Auto) 0.300 Neut % (Auto) 51.6 Lymph % (Auto) 33.8 Ocean % (Auto) 13.0 H Eos % (Auto) 1.0 Baso % (Auto) 0.3 Absolute Neuts (auto) 1.5 L Absolute Lymphs (auto) 0.99 Nucleated RBC % 0 PT 27.1 H INR 2.6 Blood Type A POSITIVE Antibody Screen NEGATIVE Crossmatch See Detail <Dr. Howie Brothers, DO - Last Filed: 12/28/21 22:15> [facility] MDM Narrative Medical decision making narrative: Patient has acute on chronic anemia. She had a positive stool guaiac test yesterday and her primary care has discontinued Coumadin. Her bleeding is a known issue from prior polypectomy and she does not want further intervention. She has no acute symptoms and appears well and nontoxic. Vital signs are unremarkable. Exam is benign. Hemoglobin today is 7.1. It looks like when stable she runs around 8 so she will be given 1 unit PRBCs here with plan to discharge back to ECF. Attending note: Patient seen and evaluated with photovoltaic panel installer. I perform my own [id number] evaluation. I agree with the plan of work-up. Sent in here from assisted living after being evaluated by nurse practitioner, Herminia. Patient followed at facility by Dr. Alejo Salcido. History of large colon polyp with polypectomy approximately a year ago by Dr. Turk. She has had postprocedure bleed since then has been transfused once. There is recommendation for repeat colonoscopies for additional procedures however patient declines this. Daughter is present. She is on warfarin for history of paroxysmal atrial fibrillation. Apparently warfarin was restarted 2 weeks ago. Patient has had anemia with blood work with discussion with primary team down to 7.5 repeated yesterday was 6.7. Her warfarin has been held for last 3 days. Per patient family do not want to continue the warfarin in the future they understand the stroke risk. She does not take any antiplatelets. She denies any abdominal pain. She had previous sigmoid colectomy in the past. She reports exertional fatigue. No lightheaded symptoms. Exam pale conjunctiva, heart was regular lungs are clear abdomen is soft and nontender. Recheck labs 7.1 today. She had guaiac positive testing yesterday that was reported to me. She has no coronary stents history with her having symptoms, will transfuse 1 unit of blood. Patient will be transferred back to her assisted living facility for outpatient management with coordination of primary team. Lab Data Labs: Laboratory Results - last 24 hr 12/28/21 12/28/21 12/28/21 12:00 12:00 12:00 WBC 2.9 L RBC 2.60 L Hgb 7.1 L Hct 22.5 L MCV 86.5 MCH 27.3 MCHC 31.6 L RDW Std Deviation 63.3 H RDW Coeff of Laureen 19.9 H Plt Count 108 L MPV 10.2 Immature Gran % (Auto) 0.300 Neut % (Auto) 51.6 Lymph % (Auto) 33.8 Ocean % (Auto) 13.0 H Eos % (Auto) 1.0 Baso % (Auto) 0.3 Absolute Neuts (auto) 1.5 L Absolute Lymphs (auto) 0.99 Nucleated RBC % 0 PT 27.1 H INR 2.6 Blood Type A POSITIVE Antibody Screen NEGATIVE Crossmatch See Detail Discharge Plan Triage Chief Complaint: Abn Labs ED Midlevel Provider: Selma [place] ED Provider: Howie Brothers Dx/Rx/DC Orders Clinical Impression: Anemia, History of gastrointestinal bleeding Instructions: ED Anemia, Type Not Specified (Adult) Prescriptions: No Action gabapentin 600 MG tablet 300 mg PO QHS warfarin [Jantoven] 3 MG tablet 1 mg PO SUMOWETHSA docusate sodium [DOK] 100 MG capsule 100 mg PO DAILY PRN (Reason: Constipation) warfarin [Jantoven] 1 MG tablet 2 mg PO TU estradiol [Estrace] 42.5 GM cream 1 g vaginal QODAY PRN (Reason: DRYNESS) multivitamin with folic acid [Thera] 1 TABLET tablet 1 tab PO DAILY L.acidoph, paracasei,B. lactis 1 EACH capsule 1 ea PO DAILY triamcinolone acetonide [Nasal Allergy] 1 SPRAY aerosol,spray 2 spray NASAL PRN PRN (Reason: Nasal Congestion) biotin 5 MG tablet 5,000 mg PO 1200 diclofenac sodium [Voltaren] 100 GM gel 100 g TP PRN PRN (Reason: Pain) turmeric root extract 500 MG capsule 580 mg PO DAILY melatonin 10 MG tablet 5 mg PO QHS prednisone 5 mg Tablet 5 mg PO PRN PRN (Reason: ARTHRITIS) ascorbic acid (vitamin C) [Vitamin C] 500 mg Tablet 500 mg PO DAILY nitrofurantoin macrocrystal [Macrodantin] 100 mg Capsule 100 mg PO BID furosemide [Lasix] 20 mg Tablet 20 mg PO QODAY metoprolol succinate 25 mg Tablet Extended Release 24 Hr 25 mg PO DAILY fluticasone propionate [Flonase Allergy Relief] 50 mcg/actuation [place],Suspension 1 spray INTRANASAL DAILY Citracal Plus [id number] [id number] Tablet 1 tab PO BID escitalopram oxalate [Lexapro] 10 mg Tablet 10 mg PO DAILY zinc 50 mg Capsule 50 mg PO DAILY cholecalciferol (vitamin D3) [Vitamin D3] 25 mcg (1,000 unit) Tablet,Chewable 25 mcg PO DAILY levothyroxine 25 mcg Capsule 25 mcg PO DAILY omeprazole magnesium 20 mg Capsule,Delayed Release(Dr/Ec) 40 mg PO DAILY cranberry 450 mg Tablet 450 mg PO DAILY calcium carb and citrat-mag ox 200 mg calcium- 50 mg Tablet 1 tab PO DAILY Glucosamine Chondroitin 550-30-1 mg Capsule 1 cap PO QHS acetaminophen [Tylenol] 325 mg Tablet 650 mg PO Q6H PRN (Reason: Pain) norethindrone acetate [Aygestin] 5 mg tablet 5 mg PO BID Qty: 10 0RF Paxlovid (EUA) 300 mg (150 mg x 2)-100 mg tablets,dose pack See Rx Instructions .ROUTE .COMPLEX Qty: 30 0RF Rx Instructions: take TWO 150 mg tablets of nirmatrelvir with ONE 100 mg tablet of ritonavir twice daily for 5 days Primary Care Provider: Galina Sainz Referrals: Galina Sainz MD [Primary Care Provider] - Activity Restrictions/Additional Instructions: You were given 1 unit of blood. Please follow-up with your primary care doctor for further monitoring of your blood levels. Disposition Disposition: Home, Self Care Discharge Date/Time: 12/28/21 16:03
[2021-12-28 12:15] VITALS: RESP 17
[2021-12-28 12:31] LABS: Absolute Lymphocyte Count 0.99 X10^3/uL (0.83-4.51); Absolute Neutrophil Count 1.5 X10^3/uL (2.0-7.7); Basophil# 0.01 X10^3/uL; Basophil% 0.3 % (0-1); Eosinophil# 0.03 X10^3/uL; Hematocrit 22.5 % (37-47); Hemoglobin 7.1 g/dL (12.0-15.0); Lymphocyte # 0.99 X10^3/ul (0.83-4.51); Lymphocyte % 33.8 % (19-41); Mean Corp Hgb Conc 31.6 g/dL (32-36); Mean Corpuscular Hgb 27.3 pg (27.0-32.0); Mean Corpuscular Volume 86.5 fL (81-99); Mean Platelet Vol. 10.2 fl (6.2-12.0); Monocyte# 0.38 X10^3/uL; NRBC Flagged by Analyzer 0 % (0-5); Neutrophil # 1.51 X10^3/uL (2.7-7.7); Neutrophil % 51.6 % (47-70); Platelet Count 108 K/mm3 (150-450); RBC Distribution Width CV 19.9 % (11.6-14.6); RBC Distribution Width SD 63.3 fl (35.1-43.9); White Blood Count 2.9 K/mm3 (4.4-11.0)
[2021-12-28 12:38] LABS: International Normalized Ratio 2.6; Prothrombin Time (Protime)PT. 27.1 SECONDS (11.7-14.9)
[2021-12-28 13:28] VITALS: BP 121/51; PULSE 78; RESP 17; TEMP 37.2; O2SAT 98
[2021-12-28 13:54] VITALS: BP 120/57; PULSE 86; RESP 18; TEMP 37.2; O2SAT 97
[2021-12-28 14:09] VITALS: BP 106/50; PULSE 69; RESP 16; TEMP 37.3; O2SAT 96
[2021-12-28 15:09] VITALS: BP 125/79; PULSE 70; RESP 16; TEMP 37.2; O2SAT 94
== END 2021-12-28 16:03 | disposition home or self-care (01) ==
PROVIDERS: Physician Assistant; Emergency Provider Emergency Medicine; PCP Internal Medicine; Visit Provider Emergency Medicine
DX: K92.1 Melena (principal); I48.0 Paroxysmal atrial fibrillation; D64.9 Anemia, unspecified; Z79.01 Long term (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 anticoagulants; Z79.52 Long term (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 systemic steroids; Z79.890 Hormone replacement therapy; Z79.899 Other long term (current) drug therapy
CPT/HCPCS: 36430; 36591; 85025; 85610; 86850; 86900; 86901; 86920; 86922; 99284; J7030; P9016; A4216

== ENCOUNTER → 2021-12-31 | Outpatient (REF) | payer MEDICARE, BC, SELFPAY ==
[2021-12-31 07:56] LABS: Absolute Lymphocyte Count 1.26 X10^3/uL (0.83-4.51); Absolute Neutrophil Count 1.8 X10^3/uL (2.0-7.7); Basophil# 0.01 X10^3/uL; Basophil% 0.3 % (0-1); Eosinophil# 0.06 X10^3/uL; Eosinophils% 1.6 % (0-5); Hematocrit 24.1 % (37-47); Hemoglobin 7.5 g/dL (12.0-15.0); Lymphocyte # 1.26 X10^3/ul (0.83-4.51); Lymphocyte % 34.6 % (19-41); Mean Corp Hgb Conc 31.1 g/dL (32-36); Mean Corpuscular Hgb 27.5 pg (27.0-32.0); Mean Corpuscular Volume 88.3 fL (81-99); Mean Platelet Vol. 10.4 fl (6.2-12.0); Monocyte% 13.7 % (0-10); NRBC Flagged by Analyzer 0 % (0-5); Neutrophil % 49.5 % (47-70); Platelet Count 125 K/mm3 (150-450); RBC Distribution Width CV 19.1 % (11.6-14.6); Red Blood Count 2.73 M/mm3 (4.2-5.4); White Blood Count 3.6 K/mm3 (4.4-11.0)
[2021-12-31 09:10] LABS: BUN 10 mg/dL (7-18); BUN/Creat Ratio 13.7 RATIO (10-20); Creatinine, Serum 0.73 mg/dL (0.55-1.02); EST Glomerular Filtration Rate 81 mL/min (>60); Est Glom Filt Rate - Afr Amer 98 mL/min (>60); Glucose 93 mg/dL (74-106)
[2021-12-31 09:11] LABS: ALB/GLOB Ratio 0.6 RATIO (0.9-2.4); AST(SGOT) 35 U/L (15-37); Alanine Aminotransfer ALT/SGPT 25 U/L (13-56); Albumin, Serum 2.3 g/dL (3.2-5.0); Alkaline Phosphatase 75 U/L (45-117); Calcium,Total 8.4 mg/dL (8.5-10.1); Globulin 3.9 g/dL (2.2-4.2); Protein, Total 6.2 g/dL (6.4-8.2)
[2021-12-31 09:12] LABS: Anion Gap 9 (5-15); Chloride 113 mmol/L (98-107); Potassium 4.3 mmol/L (3.5-5.1); Sodium Level 144 mmol/L (136-145)
== END ==
LOC: OLS.WHLTSB 04:00
PROVIDERS: PCP Internal Medicine; Referring Provider Family Medicine; Visit Provider Family Medicine
DX: I49.9 Cardiac arrhythmia, unspecified (principal); F32.A Depression, unspecified; C44.42 Squamous cell carcinoma of skin of scalp and neck; C50.311 Malignant neoplasm of lower-inner quadrant of right female breast; D05.82 Other specified type of carcinoma in situ of left breast
CPT/HCPCS: 36415; 80053; 85025

== ENCOUNTER → 2022-01-03 | Outpatient (REF) | payer MEDICARE, BC, SELFPAY ==
[2022-01-03 05:34] LABS: Absolute Lymphocyte Count 1.25 X10^3/uL (0.83-4.51); Absolute Neutrophil Count 2.5 X10^3/uL (2.0-7.7); Basophil# 0.02 X10^3/uL; Basophil% 0.5 % (0-1); Eosinophil# 0.09 X10^3/uL; Eosinophils% 2.1 % (0-5); Hematocrit 25.7 % (37-47); Hemoglobin 8.3 g/dL (12.0-15.0); Lymphocyte # 1.25 X10^3/ul (0.83-4.51); Lymphocyte % 28.6 % (19-41); Mean Corp Hgb Conc 32.3 g/dL (32-36); Mean Corpuscular Hgb 27.9 pg (27.0-32.0); Mean Corpuscular Volume 86.5 fL (81-99); Monocyte% 11.4 % (0-10); NRBC Flagged by Analyzer 0 % (0-5); Neutrophil % 57.2 % (47-70); Platelet Count 154 K/mm3 (150-450); RBC Distribution Width CV 18.8 % (11.6-14.6); Red Blood Count 2.97 M/mm3 (4.2-5.4); White Blood Count 4.4 K/mm3 (4.4-11.0)
== END ==
LOC: OLS.WHLTSB 05:00
PROVIDERS: PCP Internal Medicine; Visit Provider Family Medicine
DX: D64.9 Anemia, unspecified (principal); R50.9 Fever, unspecified; R05.9 Cough, unspecified; K21.9 Gastro-esophageal reflux disease without esophagitis; K59.00 Constipation, unspecified; F32.A Depression, unspecified; K63.5 Polyp of colon; K64.9 Unspecified hemorrhoids
CPT/HCPCS: 36415; 85025

== ENCOUNTER → 2022-01-17 | Outpatient (REF) | payer MEDICARE, BC, SELFPAY ==
[2022-01-17 09:56] LABS: Absolute Lymphocyte Count 1.45 X10^3/uL (0.83-4.51); Basophil# 0.04 X10^3/uL; Basophil% 0.8 % (0-1); Eosinophils% 1.9 % (0-5); Hematocrit 24.8 % (37-47); Lymphocyte # 1.45 X10^3/ul (0.83-4.51); Lymphocyte % 27.4 % (19-41); Mean Corp Hgb Conc 32.3 g/dL (32-36); Mean Corpuscular Hgb 28.7 pg (27.0-32.0); Mean Corpuscular Volume 88.9 fL (81-99); Mean Platelet Vol. 9.9 fl (6.2-12.0); Monocyte# 0.71 X10^3/uL; Monocyte% 13.4 % (0-10); NRBC Flagged by Analyzer 0 % (0-5); Neutrophil # 2.98 X10^3/uL (2.7-7.7); Neutrophil % 56.3 % (47-70); Platelet Count 169 K/mm3 (150-450); RBC Distribution Width CV 18.2 % (11.6-14.6); RBC Distribution Width SD 58.2 fl (35.1-43.9); Red Blood Count 2.79 M/mm3 (4.2-5.4); White Blood Count 5.3 K/mm3 (4.4-11.0)
== END ==
LOC: OLS.WHLTSB 05:00
PROVIDERS: PCP Internal Medicine; Visit Provider Family Medicine
DX: D64.9 Anemia, unspecified (principal); R50.9 Fever, unspecified; R05.9 Cough, unspecified; K21.9 Gastro-esophageal reflux disease without esophagitis; K59.00 Constipation, unspecified; F32.A Depression, unspecified; K63.5 Polyp of colon; K64.9 Unspecified hemorrhoids
CPT/HCPCS: 36415; 85025

== ENCOUNTER → 2022-02-04 | Outpatient (REF) | payer MEDICARE, BC, SELFPAY ==
[2022-02-04 07:53] LABS: Absolute Lymphocyte Count 1.51 X10^3/uL (0.83-4.51); Absolute Neutrophil Count 2.9 X10^3/uL (2.0-7.7); Basophil# 0.05 X10^3/uL; Eosinophil# 0.13 X10^3/uL; Eosinophils% 2.5 % (0-5); Hematocrit 26.7 % (37-47); Hemoglobin 8.3 g/dL (12.0-15.0); Lymphocyte # 1.51 X10^3/ul (0.83-4.51); Lymphocyte % 29.2 % (19-41); Mean Corp Hgb Conc 31.1 g/dL (32-36); Mean Corpuscular Hgb 27.1 pg (27.0-32.0); Mean Corpuscular Volume 87.3 fL (81-99); Mean Platelet Vol. 9.5 fl (6.2-12.0); Monocyte# 0.58 X10^3/uL; Monocyte% 11.2 % (0-10); NRBC Flagged by Analyzer 0 % (0-5); Neutrophil # 2.89 X10^3/uL (2.7-7.7); Neutrophil % 55.7 % (47-70); Platelet Count 155 K/mm3 (150-450); RBC Distribution Width CV 17.1 % (11.6-14.6); Red Blood Count 3.06 M/mm3 (4.2-5.4); White Blood Count 5.2 K/mm3 (4.4-11.0)
[2022-02-04 08:17] LABS: ALB/GLOB Ratio 0.6 RATIO (0.9-2.4); AST(SGOT) 20 U/L (15-37); Alanine Aminotransfer ALT/SGPT 20 U/L (13-56); Albumin, Serum 2.7 g/dL (3.2-5.0); Alkaline Phosphatase 87 U/L (45-117); Anion Gap 4 (5-15); BUN 14 mg/dL (7-18); BUN/Creat Ratio 20.9 RATIO (10-20); Calcium,Total 8.9 mg/dL (8.5-10.1); Chloride 111 mmol/L (98-107); Creatinine, Serum 0.67 mg/dL (0.55-1.02); EST Glomerular Filtration Rate 89 mL/min (>60); Est Glom Filt Rate - Afr Amer 107 mL/min (>60); Globulin 4.5 g/dL (2.2-4.2); Glucose 79 mg/dL (74-106); Potassium 4.1 mmol/L (3.5-5.1); Protein, Total 7.2 g/dL (6.4-8.2); Sodium Level 140 mmol/L (136-145)
== END ==
LOC: OLS.WHLTSB 05:00
PROVIDERS: PCP Internal Medicine; Visit Provider Family Medicine
DX: I49.9 Cardiac arrhythmia, unspecified (principal); F32.A Depression, unspecified; C44.42 Squamous cell carcinoma of skin of scalp and neck; C50.311 Malignant neoplasm of lower-inner quadrant of right female breast; D05.82 Other specified type of carcinoma in situ of left breast
CPT/HCPCS: 36415; 80053; 85025

== ENCOUNTER → 2022-02-21 | Outpatient (REF) | payer MEDICARE, BC, SELFPAY ==
[2022-02-21 09:03] LABS: Color, Urine Amber (Yellow); Glucose, Dipstick Normal (Normal); Ketone-Dipstick 5 mg/dl (Negative); Leukocyte Esterase-Dipstick 25 /ul (Negative); Nitrite-Dipstick Negative (Negative); Occult Blood-Urine 250 /ul (Negative); Protein-Dipstick 30 mg/dl (Negative); Specific Gravity, Urine 1.015 (1.002-1.030); Urine Bilirubin Dipstick Negative (Negative); Urine Clarity Cloudy (Clear); Urine Urobilinogen Normal (Normal)
== END ==
LOC: OLS.WHLTSB
PROVIDERS: PCP Internal Medicine; Visit Provider Internal Medicine
DX: N39.0 Urinary tract infection, site not specified (principal); D64.9 Anemia, unspecified; R50.9 Fever, unspecified; R05.9 Cough, unspecified; K21.9 Gastro-esophageal reflux disease without esophagitis; K59.00 Constipation, unspecified; F32.A Depression, unspecified; K63.5 Polyp of colon; K64.9 Unspecified hemorrhoids
CPT/HCPCS: 81002; 87086

== ENCOUNTER → 2022-03-04 | Outpatient (REF) | payer MEDICARE, BC, SELFPAY ==
[2022-03-04 09:31] LABS: Absolute Neutrophil Count 2.1 X10^3/uL (2.0-7.7); Basophil# 0.02 X10^3/uL; Basophil% 0.5 % (0-1); Eosinophil# 0.11 X10^3/uL; Eosinophils% 2.8 % (0-5); Hematocrit 25.5 % (37-47); Hemoglobin 7.7 g/dL (12.0-15.0); Lymphocyte % 32.5 % (19-41); Mean Corp Hgb Conc 30.2 g/dL (32-36); Mean Corpuscular Hgb 26.2 pg (27.0-32.0); Mean Corpuscular Volume 86.7 fL (81-99); Monocyte# 0.51 X10^3/uL; Monocyte% 12.8 % (0-10); NRBC Flagged by Analyzer 0 % (0-5); Neutrophil # 2.06 X10^3/uL (2.7-7.7); Neutrophil % 51.4 % (47-70); Platelet Count 163 K/mm3 (150-450); RBC Distribution Width CV 17.1 % (11.6-14.6); RBC Distribution Width SD 53.1 fl (35.1-43.9); Red Blood Count 2.94 M/mm3 (4.2-5.4)
[2022-03-04 09:55] LABS: ALB/GLOB Ratio 0.6 RATIO (0.9-2.4); AST(SGOT) 22 U/L (15-37); Alanine Aminotransfer ALT/SGPT 19 U/L (13-56); Albumin, Serum 2.7 g/dL (3.2-5.0); Alkaline Phosphatase 87 U/L (45-117); Anion Gap 5 (5-15); BUN 13 mg/dL (7-18); BUN/Creat Ratio 18.4 RATIO (10-20); Calcium,Total 9.1 mg/dL (8.5-10.1); Chloride 113 mmol/L (98-107); Creatinine, Serum 0.71 mg/dL (0.55-1.02); EST Glomerular Filtration Rate 83 mL/min (>60); Est Glom Filt Rate - Afr Amer 101 mL/min (>60); Globulin 4.5 g/dL (2.2-4.2); Glucose 90 mg/dL (74-106); Potassium 4.4 mmol/L (3.5-5.1); Protein, Total 7.2 g/dL (6.4-8.2); Sodium Level 143 mmol/L (136-145)
== END ==
LOC: OLS.WHLTSB 04:00
PROVIDERS: PCP Internal Medicine; Referring Provider Family Medicine; Visit Provider Family Medicine
DX: I49.9 Cardiac arrhythmia, unspecified (principal); F32.A Depression, unspecified; C44.42 Squamous cell carcinoma of skin of scalp and neck; C50.311 Malignant neoplasm of lower-inner quadrant of right female breast; D05.82 Other specified type of carcinoma in situ of left breast
CPT/HCPCS: 36415; 80053; 85025

== ENCOUNTER → 2022-03-06 | Outpatient (CLI) | payer MEDICARE, BC, SELFPAY ==
[2022-03-06] VITALS (7 sets, daily range): BP systolic 111–132; BP diastolic 48–64; PULSE 68–75; RESP 14–16; TEMP 22.2–36.2; O2SAT 98–99; BMI 27.3
[2022-03-06] MEDS: Furosemide 20 MG/2 ML VIAL IV (11:21)
[2022-03-06] MEDS: 0.9% NaCl Peripheral Flush Adult/Peds IV (13:45)
== END | disposition home or self-care (01) ==
LOC: MEDOUTP 08:24
PROVIDERS: PCP Internal Medicine; Referring Provider Nurse Practitioner Adult Health; Visit Provider Nurse Practitioner Adult Health
DX: D64.9 Anemia, unspecified (principal)
CPT/HCPCS: 36415; 36430; 86850; 86900; 86901; 86920; 86922; J7040; P9016; A4216; J1940

== ENCOUNTER → 2022-03-07 | Outpatient (REF) | payer MEDICARE, BC, SELFPAY ==
[2022-03-07 09:03] LABS: Absolute Lymphocyte Count 1.39 X10^3/uL (0.83-4.51); Basophil# 0.04 X10^3/uL; Eosinophil# 0.08 X10^3/uL; Hematocrit 33.2 % (37-47); Hemoglobin 10.8 g/dL (12.0-15.0); Lymphocyte # 1.39 X10^3/ul (0.83-4.51); Lymphocyte % 34.1 % (19-41); Mean Corp Hgb Conc 32.5 g/dL (32-36); Mean Corpuscular Hgb 27.5 pg (27.0-32.0); Mean Corpuscular Volume 84.5 fL (81-99); Mean Platelet Vol. 9.7 fl (6.2-12.0); Monocyte# 0.58 X10^3/uL; Monocyte% 14.2 % (0-10); NRBC Flagged by Analyzer 0 % (0-5); Neutrophil # 1.98 X10^3/uL (2.7-7.7); Neutrophil % 48.5 % (47-70); Platelet Count 155 K/mm3 (150-450); RBC Distribution Width CV 16.3 % (11.6-14.6); RBC Distribution Width SD 50.5 fl (35.1-43.9); Red Blood Count 3.93 M/mm3 (4.2-5.4); White Blood Count 4.1 K/mm3 (4.4-11.0)
== END ==
LOC: OLS.WHLTSB 05:00
PROVIDERS: PCP Internal Medicine; Visit Provider Internal Medicine
DX: D64.9 Anemia, unspecified (principal); R50.9 Fever, unspecified; R05.9 Cough, unspecified; K21.9 Gastro-esophageal reflux disease without esophagitis; K59.00 Constipation, unspecified; F32.A Depression, unspecified; K63.5 Polyp of colon; K64.9 Unspecified hemorrhoids
CPT/HCPCS: 36415; 85025

== ENCOUNTER → 2022-04-01 | Outpatient (REF) | payer MEDICARE, SELFPAY ==
[2022-04-01 09:24] LABS: Absolute Lymphocyte Count 1.69 X10^3/uL (0.83-4.51); Absolute Neutrophil Count 2.7 X10^3/uL (2.0-7.7); Basophil# 0.03 X10^3/uL; Basophil% 0.6 % (0-1); Eosinophil# 0.09 X10^3/uL; Eosinophils% 1.8 % (0-5); Hemoglobin 10.5 g/dL (12.0-15.0); Lymphocyte # 1.69 X10^3/ul (0.83-4.51); Lymphocyte % 33.2 % (19-41); Mean Corp Hgb Conc 31.8 g/dL (32-36); Mean Corpuscular Hgb 29.5 pg (27.0-32.0); Mean Corpuscular Volume 92.7 fL (81-99); Mean Platelet Vol. 10.3 fl (6.2-12.0); Monocyte# 0.57 X10^3/uL; Monocyte% 11.2 % (0-10); NRBC Flagged by Analyzer 0 % (0-5); POSITIVE MORPHOLOGY YES; Platelet Count 127 K/mm3 (150-450); RBC Distribution Width CV 22.1 % (11.6-14.6); Red Blood Count 3.56 M/mm3 (4.2-5.4); White Blood Count 5.1 K/mm3 (4.4-11.0)
[2022-04-01 09:40] LABS: Differential Indicated SCAN CRITERIA MET
[2022-04-01 09:51] LABS: ALB/GLOB Ratio 0.6 RATIO (0.9-2.4); AST(SGOT) 24 U/L (15-37); Alanine Aminotransfer ALT/SGPT 21 U/L (13-56); Albumin, Serum 2.6 g/dL (3.2-5.0); Alkaline Phosphatase 75 U/L (45-117); Anion Gap 10 (5-15); BUN 13 mg/dL (7-18); BUN/Creat Ratio 18.4 RATIO (10-20); Calcium,Total 9.1 mg/dL (8.5-10.1); Chloride 110 mmol/L (98-107); Creatinine, Serum 0.71 mg/dL (0.55-1.02); EST Glomerular Filtration Rate 83 mL/min (>60); Est Glom Filt Rate - Afr Amer 101 mL/min (>60); Globulin 4.3 g/dL (2.2-4.2); Glucose 81 mg/dL (74-106); Protein, Total 6.9 g/dL (6.4-8.2); Sodium Level 145 mmol/L (136-145)
[2022-04-01 11:15] LABS: Anisocytosis RARE
== END ==
LOC: OLS.WHLTSB 06:00
PROVIDERS: PCP Internal Medicine; Visit Provider Internal Medicine
DX: I49.9 Cardiac arrhythmia, unspecified (principal); F32.A Depression, unspecified; C44.42 Squamous cell carcinoma of skin of scalp and neck; C50.311 Malignant neoplasm of lower-inner quadrant of right female breast; D05.82 Other specified type of carcinoma in situ of left breast
CPT/HCPCS: 36415; 80053; 85025

== ENCOUNTER → 2022-05-06 | Outpatient (REF) | payer MEDICARE, BC, SELFPAY ==
[2022-05-06 07:28] LABS: Absolute Lymphocyte Count 1.42 X10^3/uL (0.83-4.51); Absolute Neutrophil Count 2.6 X10^3/uL (2.0-7.7); Basophil# 0.03 X10^3/uL; Basophil% 0.6 % (0-1); Eosinophils% 2.1 % (0-5); Hematocrit 34.1 % (37-47); Hemoglobin 11.1 g/dL (12.0-15.0); Lymphocyte # 1.42 X10^3/ul (0.83-4.51); Lymphocyte % 29.8 % (19-41); Mean Corp Hgb Conc 32.6 g/dL (32-36); Mean Corpuscular Volume 98.3 fL (81-99); Mean Platelet Vol. 9.4 fl (6.2-12.0); Monocyte# 0.64 X10^3/uL; Monocyte% 13.4 % (0-10); NRBC Flagged by Analyzer 0 % (0-5); Neutrophil # 2.55 X10^3/uL (2.7-7.7); Neutrophil % 53.7 % (47-70); POSITIVE MORPHOLOGY YES; Platelet Count 110 K/mm3 (150-450); RBC Distribution Width CV 23.4 % (11.6-14.6); RBC Distribution Width SD 81.2 fl (35.1-43.9); Red Blood Count 3.47 M/mm3 (4.2-5.4); White Blood Count 4.8 K/mm3 (4.4-11.0)
[2022-05-06 07:37] LABS: Differential Indicated SCAN CRITERIA MET
[2022-05-06 07:58] LABS: ALB/GLOB Ratio 0.6 RATIO (0.9-2.4); AST(SGOT) 26 U/L (15-37); Alanine Aminotransfer ALT/SGPT 21 U/L (13-56); Albumin, Serum 2.6 g/dL (3.2-5.0); Alkaline Phosphatase 117 U/L (45-117); Anion Gap 6 (5-15); BUN 9 mg/dL (7-18); BUN/Creat Ratio 15.9 RATIO (10-20); Calcium,Total 9.1 mg/dL (8.5-10.1); Chloride 110 mmol/L (98-107); Creatinine, Serum 0.57 mg/dL (0.55-1.02); EST Glomerular Filtration Rate 108 mL/min (>60); Est Glom Filt Rate - Afr Amer 130 mL/min (>60); Globulin 4.3 g/dL (2.2-4.2); Glucose 84 mg/dL (74-106); Potassium 4.1 mmol/L (3.5-5.1); Protein, Total 6.9 g/dL (6.4-8.2); Sodium Level 142 mmol/L (136-145); Thyroid Stim Hormone (TSH) 1.29 uIU/mL (0.358-3.74)
[2022-05-06 08:20] LABS: Anisocytosis 1+
== END ==
LOC: OLS.WHLTSB 05:00
PROVIDERS: PCP Internal Medicine; Visit Provider Family Medicine
DX: I49.9 Cardiac arrhythmia, unspecified (principal); F32.A Depression, unspecified; C44.42 Squamous cell carcinoma of skin of scalp and neck; C50.311 Malignant neoplasm of lower-inner quadrant of right female breast; D05.82 Other specified type of carcinoma in situ of left breast; E03.9 Hypothyroidism, unspecified
CPT/HCPCS: 36415; 80053; 84443; 85025

== ENCOUNTER → 2022-06-03 | Outpatient (REF) | payer MEDICARE, BC, SELFPAY ==
[2022-06-03 09:06] LABS: Absolute Lymphocyte Count 1.54 X10^3/uL (0.83-4.51); Absolute Neutrophil Count 3.2 X10^3/uL (2.0-7.7); Basophil# 0.03 X10^3/uL; Basophil% 0.5 % (0-1); Eosinophil# 0.13 X10^3/uL; Eosinophils% 2.4 % (0-5); Hematocrit 38.3 % (37-47); Hemoglobin 13.1 g/dL (12.0-15.0); Lymphocyte # 1.54 X10^3/ul (0.83-4.51); Lymphocyte % 27.8 % (19-41); Mean Corp Hgb Conc 34.2 g/dL (32-36); Mean Corpuscular Hgb 35.1 pg (27.0-32.0); Mean Corpuscular Volume 102.7 fL (81-99); Mean Platelet Vol. 9.9 fl (6.2-12.0); Monocyte# 0.57 X10^3/uL; Monocyte% 10.3 % (0-10); NRBC Flagged by Analyzer 0 % (0-5); Neutrophil # 3.24 X10^3/uL (2.7-7.7); Neutrophil % 58.6 % (47-70); POSITIVE MORPHOLOGY YES; Platelet Count 113 K/mm3 (150-450); RBC Distribution Width SD 68.7 fl (35.1-43.9); Red Blood Count 3.73 M/mm3 (4.2-5.4); White Blood Count 5.5 K/mm3 (4.4-11.0)
[2022-06-03 09:11] LABS: Differential Indicated SCAN CRITERIA MET
[2022-06-03 09:23] LABS: ALB/GLOB Ratio 0.7 RATIO (0.9-2.4); AST(SGOT) 33 U/L (15-37); Alanine Aminotransfer ALT/SGPT 33 U/L (13-56); Alkaline Phosphatase 98 U/L (45-117); Anion Gap 7 (5-15); BUN 17 mg/dL (7-18); BUN/Creat Ratio 28.5 RATIO (10-20); Calcium,Total 9.5 mg/dL (8.5-10.1); Chloride 108 mmol/L (98-107); EST Glomerular Filtration Rate 101 mL/min (>60); Est Glom Filt Rate - Afr Amer 123 mL/min (>60); Globulin 4.2 g/dL (2.2-4.2); Glucose 86 mg/dL (74-106); Potassium 4.2 mmol/L (3.5-5.1); Protein, Total 7.2 g/dL (6.4-8.2); Sodium Level 141 mmol/L (136-145)
[2022-06-03 10:25] LABS: Anisocytosis 1+; Differential Comment SCANNED
== END ==
LOC: OLS.WHLTSB 05:00
PROVIDERS: PCP Internal Medicine; Visit Provider Internal Medicine
DX: I49.9 Cardiac arrhythmia, unspecified (principal); F32.A Depression, unspecified; C44.42 Squamous cell carcinoma of skin of scalp and neck; C50.311 Malignant neoplasm of lower-inner quadrant of right female breast; D05.82 Other specified type of carcinoma in situ of left breast
CPT/HCPCS: 36415; 80053; 85025

== ENCOUNTER → 2022-07-01 | Outpatient (REF) | payer MEDICARE, BC, SELFPAY ==
[2022-07-01 07:56] LABS: Absolute Lymphocyte Count 1.43 X10^3/uL (0.83-4.51); Basophil# 0.04 X10^3/uL; Eosinophil# 0.08 X10^3/uL; Hematocrit 31.9 % (37-47); Hemoglobin 10.9 g/dL (12.0-15.0); Lymphocyte # 1.43 X10^3/ul (0.83-4.51); Lymphocyte % 35.3 % (19-41); Mean Corp Hgb Conc 34.2 g/dL (32-36); Mean Corpuscular Hgb 35.5 pg (27.0-32.0); Mean Corpuscular Volume 103.9 fL (81-99); Mean Platelet Vol. 10.1 fl (6.2-12.0); Monocyte# 0.49 X10^3/uL; Monocyte% 12.1 % (0-10); NRBC Flagged by Analyzer 0 % (0-5); Neutrophil # 1.99 X10^3/uL (2.7-7.7); Neutrophil % 49.1 % (47-70); Platelet Count 104 K/mm3 (150-450); RBC Distribution Width CV 13.9 % (11.6-14.6); RBC Distribution Width SD 53.4 fl (35.1-43.9); Red Blood Count 3.07 M/mm3 (4.2-5.4); White Blood Count 4.1 K/mm3 (4.4-11.0)
[2022-07-01 08:11] LABS: ALB/GLOB Ratio 0.8 RATIO (0.9-2.4); AST(SGOT) 28 U/L (15-37); Alanine Aminotransfer ALT/SGPT 23 U/L (13-56); Albumin, Serum 2.8 g/dL (3.2-5.0); Alkaline Phosphatase 93 U/L (45-117); Anion Gap 5 (5-15); BUN 10 mg/dL (7-18); BUN/Creat Ratio 16.4 RATIO (10-20); Calcium,Total 9.3 mg/dL (8.5-10.1); Chloride 109 mmol/L (98-107); Creatinine, Serum 0.61 mg/dL (0.55-1.02); EST Glomerular Filtration Rate 99 mL/min (>60); Est Glom Filt Rate - Afr Amer 120 mL/min (>60); Globulin 3.5 g/dL (2.2-4.2); Glucose 80 mg/dL (74-106); Potassium 4.1 mmol/L (3.5-5.1); Protein, Total 6.3 g/dL (6.4-8.2); Sodium Level 140 mmol/L (136-145)
== END ==
LOC: OLS.WHLTSB 05:00
PROVIDERS: PCP Internal Medicine; Visit Provider Internal Medicine
DX: I49.9 Cardiac arrhythmia, unspecified (principal); F32.A Depression, unspecified; C44.42 Squamous cell carcinoma of skin of scalp and neck; C50.311 Malignant neoplasm of lower-inner quadrant of right female breast
CPT/HCPCS: 36415; 80053; 85025

== ENCOUNTER → 2022-07-29 | Outpatient (REF) | payer MEDICARE, BC, SELFPAY ==
[2022-07-29 08:22] LABS: Absolute Lymphocyte Count 1.03 X10^3/uL (0.83-4.51); Absolute Neutrophil Count 3.1 X10^3/uL (2.0-7.7); Basophil# 0.03 X10^3/uL; Basophil% 0.6 % (0-1); Eosinophil# 0.09 X10^3/uL; Eosinophils% 1.8 % (0-5); Hematocrit 34.6 % (37-47); Hemoglobin 11.6 g/dL (12.0-15.0); Lymphocyte # 1.03 X10^3/ul (0.83-4.51); Lymphocyte % 20.8 % (19-41); Mean Corp Hgb Conc 33.5 g/dL (32-36); Mean Corpuscular Hgb 35.7 pg (27.0-32.0); Mean Corpuscular Volume 106.5 fL (81-99); Mean Platelet Vol. 9.7 fl (6.2-12.0); Monocyte# 0.72 X10^3/uL; Monocyte% 14.5 % (0-10); NRBC Flagged by Analyzer 0 % (0-5); Neutrophil # 3.08 X10^3/uL (2.7-7.7); Neutrophil % 62.1 % (47-70); Platelet Count 112 K/mm3 (150-450); RBC Distribution Width CV 13.7 % (11.6-14.6); RBC Distribution Width SD 53.7 fl (35.1-43.9); Red Blood Count 3.25 M/mm3 (4.2-5.4)
[2022-07-29 08:41] LABS: ALB/GLOB Ratio 0.7 RATIO (0.9-2.4); AST(SGOT) 29 U/L (15-37); Alanine Aminotransfer ALT/SGPT 23 U/L (13-56); Albumin, Serum 2.8 g/dL (3.2-5.0); Alkaline Phosphatase 91 U/L (45-117); Anion Gap 7 (5-15); BUN 13 mg/dL (7-18); BUN/Creat Ratio 23.1 RATIO (10-20); Calcium,Total 9.4 mg/dL (8.5-10.1); Chloride 110 mmol/L (98-107); Creatinine, Serum 0.56 mg/dL (0.55-1.02); EST Glomerular Filtration Rate 109 mL/min (>60); Est Glom Filt Rate - Afr Amer 131 mL/min (>60); Globulin 4.1 g/dL (2.2-4.2); Glucose 75 mg/dL (74-106); Potassium 4.1 mmol/L (3.5-5.1); Protein, Total 6.9 g/dL (6.4-8.2); Sodium Level 141 mmol/L (136-145)
== END ==
LOC: OLS.WHLTSB 05:00
PROVIDERS: PCP Internal Medicine; Visit Provider Internal Medicine
DX: I49.9 Cardiac arrhythmia, unspecified (principal); F32.A Depression, unspecified; C44.42 Squamous cell carcinoma of skin of scalp and neck; C50.311 Malignant neoplasm of lower-inner quadrant of right female breast; D05.82 Other specified type of carcinoma in situ of left breast
CPT/HCPCS: 36415; 80053; 85025

== ENCOUNTER → 2022-09-02 | Outpatient (REF) | payer MEDICARE, BC, SELFPAY ==
[2022-09-02 11:56] LABS: Absolute Lymphocyte Count 1.47 X10^3/uL (0.83-4.51); Absolute Neutrophil Count 3.6 X10^3/uL (2.0-7.7); Basophil# 0.05 X10^3/uL; Basophil% 0.8 % (0-1); Eosinophils% 1.6 % (0-5); Hemoglobin 12.2 g/dL (12.0-15.0); Lymphocyte # 1.47 X10^3/ul (0.83-4.51); Lymphocyte % 24.2 % (19-41); Mean Corpuscular Hgb 34.9 pg (27.0-32.0); Mean Corpuscular Volume 105.7 fL (81-99); Mean Platelet Vol. 9.7 fl (6.2-12.0); Monocyte# 0.79 X10^3/uL; NRBC Flagged by Analyzer 0 % (0-5); Neutrophil # 3.64 X10^3/uL (2.7-7.7); Neutrophil % 60.1 % (47-70); Platelet Count 104 K/mm3 (150-450); RBC Distribution Width CV 13.7 % (11.6-14.6); RBC Distribution Width SD 53.6 fl (35.1-43.9); White Blood Count 6.1 K/mm3 (4.4-11.0)
[2022-09-02 12:10] LABS: ALB/GLOB Ratio 0.7 RATIO (0.9-2.4); AST(SGOT) 27 U/L (15-37); Alanine Aminotransfer ALT/SGPT 24 U/L (13-56); Alkaline Phosphatase 93 U/L (45-117); Anion Gap 6 (5-15); BUN 12 mg/dL (7-18); BUN/Creat Ratio 17.3 RATIO (10-20); Calcium,Total 9.5 mg/dL (8.5-10.1); Chloride 110 mmol/L (98-107); Creatinine, Serum 0.69 mg/dL (0.55-1.02); EST Glomerular Filtration Rate 85 mL/min (>60); Est Glom Filt Rate - Afr Amer 103 mL/min (>60); Globulin 4.5 g/dL (2.2-4.2); Glucose 83 mg/dL (74-106); Protein, Total 7.5 g/dL (6.4-8.2); Sodium Level 141 mmol/L (136-145)
== END ==
LOC: OLS.WHLTSB 11:14
PROVIDERS: PCP Internal Medicine; Visit Provider Internal Medicine
DX: I49.9 Cardiac arrhythmia, unspecified (principal); F32.A Depression, unspecified; C44.42 Squamous cell carcinoma of skin of scalp and neck; C50.311 Malignant neoplasm of lower-inner quadrant of right female breast
CPT/HCPCS: 36415; 80053; 85025

== ENCOUNTER → 2022-09-19 | Outpatient (REF) | payer MEDICARE, BC, SELFPAY ==
[2022-09-19 09:49] LABS: Absolute Lymphocyte Count 1.39 X10^3/uL (0.83-4.51); Absolute Neutrophil Count 2.1 X10^3/uL (2.0-7.7); Basophil# 0.02 X10^3/uL; Basophil% 0.5 % (0-1); Eosinophil# 0.08 X10^3/uL; Hematocrit 30.2 % (37-47); Hemoglobin 10.2 g/dL (12.0-15.0); Lymphocyte # 1.39 X10^3/ul (0.83-4.51); Lymphocyte % 34.3 % (19-41); Mean Corp Hgb Conc 33.8 g/dL (32-36); Mean Corpuscular Hgb 35.9 pg (27.0-32.0); Mean Corpuscular Volume 106.3 fL (81-99); Mean Platelet Vol. 9.9 fl (6.2-12.0); Monocyte# 0.46 X10^3/uL; Monocyte% 11.4 % (0-10); NRBC Flagged by Analyzer 0 % (0-5); Neutrophil # 2.09 X10^3/uL (2.7-7.7); Neutrophil % 51.6 % (47-70); Platelet Count 106 K/mm3 (150-450); RBC Distribution Width CV 14.3 % (11.6-14.6); RBC Distribution Width SD 56.1 fl (35.1-43.9); Red Blood Count 2.84 M/mm3 (4.2-5.4); White Blood Count 4.1 K/mm3 (4.4-11.0)
== END ==
LOC: OLS.WHLTSB 05:00
PROVIDERS: PCP Internal Medicine; Visit Provider Internal Medicine
DX: I49.9 Cardiac arrhythmia, unspecified (principal)
CPT/HCPCS: 36415; 85025

== ENCOUNTER → 2022-09-30 | Outpatient (REF) | payer MEDICARE, BC, SELFPAY ==
[2022-09-30 08:47] LABS: Absolute Neutrophil Count 2.2 X10^3/uL (2.0-7.7); Basophil# 0.02 X10^3/uL; Basophil% 0.5 % (0-1); Eosinophil# 0.09 X10^3/uL; Eosinophils% 2.2 % (0-5); Hematocrit 31.6 % (37-47); Hemoglobin 10.7 g/dL (12.0-15.0); Lymphocyte % 33.9 % (19-41); Mean Corp Hgb Conc 33.9 g/dL (32-36); Mean Corpuscular Hgb 36.6 pg (27.0-32.0); Mean Corpuscular Volume 108.2 fL (81-99); Mean Platelet Vol. 9.8 fl (6.2-12.0); Monocyte# 0.47 X10^3/uL; Monocyte% 11.4 % (0-10); NRBC Flagged by Analyzer 0 % (0-5); Neutrophil # 2.15 X10^3/uL (2.7-7.7); Platelet Count 104 K/mm3 (150-450); RBC Distribution Width CV 14.3 % (11.6-14.6); RBC Distribution Width SD 56.6 fl (35.1-43.9); Red Blood Count 2.92 M/mm3 (4.2-5.4); White Blood Count 4.1 K/mm3 (4.4-11.0)
[2022-09-30 09:15] LABS: ALB/GLOB Ratio 0.7 RATIO (0.9-2.4); AST(SGOT) 27 U/L (15-37); Alanine Aminotransfer ALT/SGPT 20 U/L (13-56); Albumin, Serum 2.7 g/dL (3.2-5.0); Alkaline Phosphatase 77 U/L (45-117); Anion Gap 5 (5-15); BUN 13 mg/dL (7-18); BUN/Creat Ratio 20.1 RATIO (10-20); Calcium,Total 8.8 mg/dL (8.5-10.1); Chloride 113 mmol/L (98-107); Creatinine, Serum 0.65 mg/dL (0.55-1.02); EST Glomerular Filtration Rate 92 mL/min (>60); Est Glom Filt Rate - Afr Amer 112 mL/min (>60); Globulin 3.9 g/dL (2.2-4.2); Glucose 80 mg/dL (74-106); Potassium 3.8 mmol/L (3.5-5.1); Protein, Total 6.6 g/dL (6.4-8.2); Sodium Level 142 mmol/L (136-145)
== END ==
LOC: OLS.WHLTSB 05:00
PROVIDERS: PCP Internal Medicine; Visit Provider Internal Medicine
DX: I49.9 Cardiac arrhythmia, unspecified (principal); U07.1 COVID-19; M62.561 Muscle wasting and atrophy, not elsewhere classified, right lower leg; G25.81 Restless legs syndrome
CPT/HCPCS: 36415; 80053; 85025

== ENCOUNTER → 2022-11-04 | Outpatient (REF) | payer MEDICARE, BC, SELFPAY ==
[2022-11-04 09:08] LABS: Absolute Lymphocyte Count 1.45 X10^3/uL (0.83-4.51); Absolute Neutrophil Count 2.4 X10^3/uL (2.0-7.7); Basophil# 0.03 X10^3/uL; Basophil% 0.7 % (0-1); Eosinophil# 0.11 X10^3/uL; Eosinophils% 2.4 % (0-5); Hematocrit 35.6 % (37-47); Hemoglobin 11.5 g/dL (12.0-15.0); Lymphocyte # 1.45 X10^3/ul (0.83-4.51); Lymphocyte % 31.9 % (19-41); Mean Corp Hgb Conc 32.3 g/dL (32-36); Mean Corpuscular Hgb 34.7 pg (27.0-32.0); Mean Corpuscular Volume 107.6 fL (81-99); Monocyte# 0.54 X10^3/uL; Monocyte% 11.9 % (0-10); NRBC Flagged by Analyzer 0 % (0-5); Neutrophil # 2.41 X10^3/uL (2.7-7.7); Neutrophil % 52.9 % (47-70); Platelet Count 114 K/mm3 (150-450); RBC Distribution Width CV 13.2 % (11.6-14.6); RBC Distribution Width SD 52.2 fl (35.1-43.9); Red Blood Count 3.31 M/mm3 (4.2-5.4); White Blood Count 4.6 K/mm3 (4.4-11.0)
[2022-11-04 09:36] LABS: ALB/GLOB Ratio 0.7 RATIO (0.9-2.4); AST(SGOT) 29 U/L (15-37); Alanine Aminotransfer ALT/SGPT 22 U/L (13-56); Albumin, Serum 2.9 g/dL (3.2-5.0); Alkaline Phosphatase 88 U/L (45-117); Anion Gap 4 (5-15); BUN 13 mg/dL (7-18); BUN/Creat Ratio 21.2 RATIO (10-20); Calcium,Total 9.4 mg/dL (8.5-10.1); Chloride 111 mmol/L (98-107); Creatinine, Serum 0.61 mg/dL (0.55-1.02); EST Glomerular Filtration Rate 98 mL/min (>60); Est Glom Filt Rate - Afr Amer 119 mL/min (>60); Globulin 4.3 g/dL (2.2-4.2); Glucose 84 mg/dL (74-106); Protein, Total 7.2 g/dL (6.4-8.2); Sodium Level 141 mmol/L (136-145); Thyroid Stim Hormone (TSH) 0.93 uIU/mL (0.358-3.74)
== END ==
LOC: OLS.WHLTSB 05:00
PROVIDERS: PCP Internal Medicine; Visit Provider Internal Medicine
DX: I49.9 Cardiac arrhythmia, unspecified (principal); Z79.899 Other long term (current) drug therapy
CPT/HCPCS: 36415; 80053; 84443; 85025

== ENCOUNTER → 2022-12-02 | Outpatient (REF) | payer MEDICARE, BC, SELFPAY ==
[2022-12-02 07:35] LABS: Absolute Lymphocyte Count 1.55 X10^3/uL (0.83-4.51); Basophil# 0.02 X10^3/uL; Basophil% 0.4 % (0-1); Eosinophil# 0.12 X10^3/uL; Eosinophils% 2.3 % (0-5); Hematocrit 37.1 % (37-47); Hemoglobin 12.2 g/dL (12.0-15.0); Lymphocyte # 1.55 X10^3/ul (0.83-4.51); Lymphocyte % 29.3 % (19-41); Mean Corp Hgb Conc 32.9 g/dL (32-36); Mean Corpuscular Hgb 34.5 pg (27.0-32.0); Mean Corpuscular Volume 104.8 fL (81-99); Mean Platelet Vol. 10.1 fl (6.2-12.0); Monocyte# 0.57 X10^3/uL; Monocyte% 10.8 % (0-10); NRBC Flagged by Analyzer 0 % (0-5); Neutrophil # 3.01 X10^3/uL (2.7-7.7); Neutrophil % 56.8 % (47-70); Platelet Count 117 K/mm3 (150-450); RBC Distribution Width CV 13.4 % (11.6-14.6); RBC Distribution Width SD 51.2 fl (35.1-43.9); Red Blood Count 3.54 M/mm3 (4.2-5.4); White Blood Count 5.3 K/mm3 (4.4-11.0)
[2022-12-02 08:13] LABS: ALB/GLOB Ratio 0.8 RATIO (0.9-2.4); AST(SGOT) 34 U/L (15-37); Alanine Aminotransfer ALT/SGPT 30 U/L (13-56); Alkaline Phosphatase 90 U/L (45-117); Anion Gap 5 (5-15); BUN 16 mg/dL (7-18); BUN/Creat Ratio 25.4 RATIO (10-20); Calcium,Total 8.9 mg/dL (8.5-10.1); Chloride 109 mmol/L (98-107); Creatinine, Serum 0.63 mg/dL (0.55-1.02); EST Glomerular Filtration Rate 95 mL/min (>60); Est Glom Filt Rate - Afr Amer 115 mL/min (>60); Glucose 82 mg/dL (74-106); Potassium 4.5 mmol/L (3.5-5.1); Sodium Level 140 mmol/L (136-145)
== END ==
LOC: OLS.WHLTSB 05:00
PROVIDERS: PCP Internal Medicine; Visit Provider Internal Medicine
DX: I49.9 Cardiac arrhythmia, unspecified (principal); F32.A Depression, unspecified
CPT/HCPCS: 36415; 80053; 85025

== ENCOUNTER → 2022-12-30 | Outpatient (REF) | payer MEDICARE, BC, SELFPAY ==
[2022-12-30 08:28] LABS: Absolute Lymphocyte Count 1.24 X10^3/uL (0.83-4.51); Absolute Neutrophil Count 2.9 X10^3/uL (2.0-7.7); Basophil# 0.04 X10^3/uL; Basophil% 0.8 % (0-1); Eosinophil# 0.13 X10^3/uL; Eosinophils% 2.6 % (0-5); Hematocrit 34.1 % (37-47); Hemoglobin 11.8 g/dL (12.0-15.0); Lymphocyte # 1.24 X10^3/ul (0.83-4.51); Mean Corp Hgb Conc 34.6 g/dL (32-36); Mean Corpuscular Hgb 36.2 pg (27.0-32.0); Mean Corpuscular Volume 104.6 fL (81-99); Mean Platelet Vol. 10.1 fl (6.2-12.0); Monocyte# 0.69 X10^3/uL; Monocyte% 13.9 % (0-10); NRBC Flagged by Analyzer 0 % (0-5); Neutrophil # 2.85 X10^3/uL (2.7-7.7); Neutrophil % 57.5 % (47-70); Platelet Count 111 K/mm3 (150-450); RBC Distribution Width CV 14.1 % (11.6-14.6); RBC Distribution Width SD 53.4 fl (35.1-43.9); Red Blood Count 3.26 M/mm3 (4.2-5.4)
[2022-12-30 08:52] LABS: ALB/GLOB Ratio 0.7 RATIO (0.9-2.4); AST(SGOT) 25 U/L (15-37); Alanine Aminotransfer ALT/SGPT 25 U/L (13-56); Albumin, Serum 2.8 g/dL (3.2-5.0); Alkaline Phosphatase 89 U/L (45-117); Anion Gap 5 (5-15); BUN 13 mg/dL (7-18); BUN/Creat Ratio 21.3 RATIO (10-20); Calcium,Total 9.1 mg/dL (8.5-10.1); Chloride 111 mmol/L (98-107); Creatinine, Serum 0.61 mg/dL (0.55-1.02); EST Glomerular Filtration Rate 99 mL/min (>60); Est Glom Filt Rate - Afr Amer 120 mL/min (>60); Glucose 81 mg/dL (74-106); Potassium 4.1 mmol/L (3.5-5.1); Protein, Total 6.8 g/dL (6.4-8.2); Sodium Level 141 mmol/L (136-145)
== END ==
LOC: OLS.WHLTSB 05:00
PROVIDERS: PCP Internal Medicine; Visit Provider Internal Medicine
DX: I49.9 Cardiac arrhythmia, unspecified (principal)
CPT/HCPCS: 36415; 80053; 85025

== ENCOUNTER → 2023-02-03 | Outpatient (REF) | payer MEDICARE, BC, SELFPAY ==
[2023-02-03 06:49] LABS: Absolute Lymphocyte Count 1.74 X10^3/uL (0.83-4.51); Absolute Neutrophil Count 4.5 X10^3/uL (2.0-7.7); Basophil# 0.04 X10^3/uL; Basophil% 0.6 % (0-1); Eosinophils% 1.4 % (0-5); Hematocrit 37.2 % (37-47); Hemoglobin 12.3 g/dL (12.0-15.0); Lymphocyte # 1.74 X10^3/ul (0.83-4.51); Lymphocyte % 24.5 % (19-41); Mean Corp Hgb Conc 33.1 g/dL (32-36); Mean Corpuscular Hgb 34.4 pg (27.0-32.0); Mean Corpuscular Volume 103.9 fL (81-99); Mean Platelet Vol. 9.4 fl (6.2-12.0); Monocyte# 0.74 X10^3/uL; Monocyte% 10.4 % (0-10); NRBC Flagged by Analyzer 0 % (0-5); Neutrophil # 4.46 X10^3/uL (2.7-7.7); Neutrophil % 62.8 % (47-70); Platelet Count 134 K/mm3 (150-450); RBC Distribution Width CV 14.5 % (11.6-14.6); RBC Distribution Width SD 55.1 fl (35.1-43.9); Red Blood Count 3.58 M/mm3 (4.2-5.4); White Blood Count 7.1 K/mm3 (4.4-11.0)
[2023-02-03 07:09] LABS: ALB/GLOB Ratio 0.6 RATIO (0.9-2.4); AST(SGOT) 29 U/L (15-37); Alanine Aminotransfer ALT/SGPT 36 U/L (13-56); Albumin, Serum 2.8 g/dL (3.2-5.0); Alkaline Phosphatase 88 U/L (45-117); Anion Gap 6 (5-15); BUN 15 mg/dL (7-18); BUN/Creat Ratio 22.9 RATIO (10-20); Calcium,Total 9.2 mg/dL (8.5-10.1); Chloride 108 mmol/L (98-107); Creatinine, Serum 0.66 mg/dL (0.55-1.02); EST Glomerular Filtration Rate 91 mL/min (>60); Est Glom Filt Rate - Afr Amer 110 mL/min (>60); Globulin 4.5 g/dL (2.2-4.2); Glucose 79 mg/dL (74-106); Potassium 3.8 mmol/L (3.5-5.1); Protein, Total 7.3 g/dL (6.4-8.2); Sodium Level 141 mmol/L (136-145)
== END ==
LOC: OLS.WHLTSB 05:00
PROVIDERS: PCP Internal Medicine; Visit Provider Internal Medicine
DX: I49.9 Cardiac arrhythmia, unspecified (principal)
CPT/HCPCS: 36415; 80053; 85025

== ENCOUNTER → 2023-03-03 | Outpatient (REF) | payer MEDICARE, BC, SELFPAY ==
[2023-03-03 08:30] LABS: Absolute Lymphocyte Count 1.95 X10^3/uL (0.83-4.51); Absolute Neutrophil Count 4.4 X10^3/uL (2.0-7.7); Basophil# 0.04 X10^3/uL; Basophil% 0.5 % (0-1); Eosinophil# 0.12 X10^3/uL; Eosinophils% 1.6 % (0-5); Hematocrit 37.8 % (37-47); Hemoglobin 12.6 g/dL (12.0-15.0); Lymphocyte # 1.95 X10^3/ul (0.83-4.51); Lymphocyte % 26.4 % (19-41); Mean Corp Hgb Conc 33.3 g/dL (32-36); Mean Corpuscular Hgb 34.9 pg (27.0-32.0); Mean Corpuscular Volume 104.7 fL (81-99); Mean Platelet Vol. 9.8 fl (6.2-12.0); Monocyte# 0.79 X10^3/uL; Monocyte% 10.7 % (0-10); NRBC Flagged by Analyzer 0 % (0-5); Neutrophil # 4.44 X10^3/uL (2.7-7.7); Neutrophil % 60.1 % (47-70); Platelet Count 141 K/mm3 (150-450); RBC Distribution Width SD 53.8 fl (35.1-43.9); Red Blood Count 3.61 M/mm3 (4.2-5.4); White Blood Count 7.4 K/mm3 (4.4-11.0)
[2023-03-03 10:31] LABS: ALB/GLOB Ratio 0.7 RATIO (0.9-2.4); AST(SGOT) 38 U/L (15-37); Alanine Aminotransfer ALT/SGPT 38 U/L (13-56); Alkaline Phosphatase 71 U/L (45-117); Anion Gap 5 (5-15); BUN 15 mg/dL (7-18); BUN/Creat Ratio 20.3 RATIO (10-20); Chloride 109 mmol/L (98-107); Creatinine, Serum 0.74 mg/dL (0.55-1.02); EST Glomerular Filtration Rate 79 mL/min (>60); Est Glom Filt Rate - Afr Amer 96 mL/min (>60); Globulin 4.3 g/dL (2.2-4.2); Glucose 67 mg/dL (74-106); Potassium 4.2 mmol/L (3.5-5.1); Protein, Total 7.3 g/dL (6.4-8.2); Sodium Level 142 mmol/L (136-145)
== END ==
LOC: OLS.WHLTSB 05:00
PROVIDERS: PCP Internal Medicine; Visit Provider Internal Medicine
DX: I49.9 Cardiac arrhythmia, unspecified (principal)
CPT/HCPCS: 36415; 80053; 85025

== ENCOUNTER → 2023-03-31 | Outpatient (REF) | payer MEDICARE, BC, SELFPAY ==
--- OUTSIDE RECORDS SUMMARY | 2023-03-31 04:44 | XMS RPT_ITS | CCD ---
Author Name Unknown Address [address] [place] [address] Organization [facility] Care Team Providers Care Lock Corner Machine Operator Name Role Phone Alistari PANG, Ariel Primary Care Provider 13, Pharmacist Unavailable Ariel Sainz MD Primary Care Provider [phone] BASLIIA HERNÁNDEZ Attending Unavailable GANTA, ARIEL Referring Unavailable GANTA, ARIEL Primary Care Unavailable BASILIA HERNÁNDEZ Attending Unavailable MONA HEBERT Referring Unavailable GANTA, ARIEL Primary Care Unavailable Ariel Sainz MD Primary Care Provider Masci Sla SEWELL Unavailable Alistair PANG [facility] Primary Care Provider [phone] GANTA, ARIEL Primary Care Unavailable VETOVITZ, STELLA Referring Unavailable VETOVITZ, STELLA Attending Unavailable GANTA, ARIEL Primary Care Unavailable VETOVITZ, STELLA Referring Unavailable GANTA, ARIEL Primary Care Unavailable JULIET MORGAN Attending Unavailable JERRICA BELTRAN Referring Unavailable GANTA, ARIEL Primary Care Unavailable MASCISAL Referring Unavailable GANTA, ARIEL Primary Care Unavailable MASCISAL Referring Unavailable ARREOLA, ANGELIC Referring Unavailable GANTA, ARIEL Primary Care Unavailable GANTA, ARIEL Primary Care Unavailable MASCISAL Referring Unavailable GANTA, ARIEL Primary Care Unavailable TATY ARGUETA Attending Unavailable CECILIO IBARRA Referring Unavailabl e GANTA, ARIEL Primary Care Unavailable MASCISAL Referring Unavailable GANTA, ARIEL Primary Care Unavailable MASCSAL Hyman A Referring Unavailable ARREOLA, ANGELIC Referring Unavailable GANTA, ARIEL Primary Care Unavailable GANTA, ARIEL Primary Care Unavailable SHERICE PERSAUD Attending Unavailable ARREOLA, ANGELIC Referring Unavailable GANTA, ARIEL Primary Care Unavailable ARREOLA, ANGELIC Attending Unavailable ARREOLA, ANGELIC Referring Unavailable GANTA, ARIEL Primary Care Unavailable ANSHU LAU Attending Unavailable GANTA, ARIEL Primary Care Unavailable OBDULIA SERRANO Referring Unavailable GANTA, ARIEL Primary Care Unavailable ARREOLA, ANGELIC Referring Unavailable GANTA, ARIEL Primary Care Unavailable GANTA, ARIEL Primary Care Unavailable STELLA CASPER Attending Unavailable GANTA, ARIEL Primary Care Unavailable CHEMOANOCECILIO Referring Unavailabl e AMALFITANOCECILIO Attending Unavailabl e GANTA, ARIEL Primary Care Unavailable ARREOLA, ANGELIC Referring Unavailable GANTA, ARIEL Primary Care Unavailable ARREOLA, ANGELIC Referring Unavailable GANTA, ARIEL Primary Care Unavailable ARREOLA, ANGELIC Referring Unavailable ARREOLA, ANGELIC Attending Unavailable GANTA, ARIEL Primary Care Unavailable ARREOLA, ANGELIC Referring Unavailable GANTA, ARIEL Primary Care Unavailable GANTA, ARIEL Primary Care Unavailable ARREOLA, ANGELCI Referring Unavailable ARREOAL, ANGELIC Attending Unavailable ARREOLA, ANGELIC Referring Unavailable GANTA, ARIEL Primary Care Unavailable GANTA, ARIEL Primary Care Unavailable ARREOLA, ANGELIC Referring Unavailable GANTA, ARIEL Primary Care Unavailable ARREOLA, ANGELIC Referring Unavailable GANTA, ARIEL Primary Care Unavailable SAL BONILLA Referring Unavailable Allergies Allergy Classification Reported Allergen(s) Allergy Type Date of Onset Reaction(s) Facility (20 sources) Angiotensin-conv erting enzyme inhibitor agent; Translations: [DESMOND INHIBITORS] Drug Intolerance 5 Cough [facility] (20 sources) Cephalexin; Translations: [CEPHALEXIN] Drug Allergy 9 Other: See Comments, Contraindicati on-Medical Surgical [facility] (20 sources) Clindamycin; Translations: [CLINDAMYCIN] Drug Allergy 6 Other: See Comments, Contraindicati on-Medical Surgical [facility] (20 sources) cyclobenzaprine; Translations: [CYCLOBENZAPRINE ] Drug Allergy 5 Contraindicati on-Medical Surgical [facility] (20 sources) Diclofenac / miSOPROStol; Translations: [DICLOFENAC-MISO PROSTOL] Drug Allergy 8 Diarrhea [facility] (20 sources) hydroCHLOROthiaz ariana; Translations: [HYDROCHLOROTHIA ZIDE] Drug Allergy 6 Mental Status Change [facility] (20 sources) Lisinopril; Translations: [LISINOPRIL] Drug Allergy 8 [facility] (20 sources) metroNIDAZOLE; Translations: [METRONIDAZOLE HCL] Drug Allergy 0 Mental Status Change, Shortness of Breath [facility] (20 sources) Naproxen; Translations: [NAPROXEN] Drug Allergy 0 Other: See Comments [facility] (20 sources) Naproxen; Translations: [NAPROXEN SODIUM] Drug Allergy 0 Contraindicati on-Medical Surgical [facility] (20 sources) oxybutynin; Translations: [OXYBUTYNIN] Drug Allergy 1 Other: See Comments [facility] (20 sources) PARoxetine; Translations: [PAROXETINE] Drug Allergy 5 Contraindicati on-Medical Surgical [facility] (20 sources) prednisoLONE / Sulfacetamide; Translations: [SULFACETAMIDE-P REDNISOLONE] Drug Allergy 1 Cough [facility] (20 sources) Sulfonamides (Antibiotic); Translations: [SULFA (SULFONAMIDE ANTIBIOTICS)] Drug Allergy 6 Unknown [facility] Work Phone: (20 sources) adhesives [Other] Propensity to adverse reactions 8 Other: See Comments [facility] (20 sources) Angiotensin-conv erting enzyme inhibitor agent Drug Intolerance 5 Cough [facility] (2 sources) OTHER; Translations: [OTHER] Propensity to adverse reactions (disorder) 8 [facility] Other [facility] Medications Current Medications Medication Drug Class(es) Dates Sig (Normalized) Sig (Original) acetaminophen 325 mg / HYDROcodone bitartrate 7.5 mg oral tablet (2 sources) Opioid Agonist Start: 07-05-2021 End: 07-08-2021 take 1 tablet by mouth every eight hours as needed for pain HYDROcodone-Acetam inophen (NORCO) 7.5-325 mg per tablet Indications: Polymyalgia rheumatica (HCC) Take 1 tablet by mouth every 8 hours as needed for pain for up to 3 days. 9 tablet 0 07/05/2021 07/08/2021 Active Completed/Discontinued Medications Medication Drug Class(es) Dates Sig (Normalized) Sig (Original) acetaminophen 500 mg oral tablet (20 sources) Start: 05-17-2004 End: 07-09-2021 TYLENOL EX-STR 500 MG CAPLET Take two(2) tablets every four(4) to six(6) hours as needed. 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; Translations: [Malignant neoplasm of lower-inner quadrant of right female breast] Onset: 8 06-03-2017 Chronic Cardiac dysrhythmias (20 sources) Paroxysmal atrial fibrillation; Translations: [Paroxysmal atrial fibrillation] Onset: 0 04-09-2021 Chronic Complications of surgical procedures or medical care (20 sources) Postmastectomy lymphedema syndrome; Translations: [Postmastectomy lymphedema syndrome] Onset: 8 09-29-2007 Chronic Deficiency and other anemia (20 sources) Iron deficiency anemia due to blood loss; Translations: [Iron deficiency anemia secondary to blood loss (chronic)] Onset: 3 Chronic Deficiency and other anemia (1 source) Iron deficiency anemia secondary to blood loss (chronic); Translations: [Iron deficiency anemia due to chronic blood loss] Onset: 3 Chronic Diabetes mellitus without complication (1 source) Hyperglycemia; Translations: [Hyperglycemia, unspecified] Episodic Disorders of lipid metabolism (20 sources) Mixed hyperlipidemia; Translations: [Mixed hyperlipidemia] Onset: 6 04-22-2021 Chronic Diverticulosis and diverticulitis (20 sources) Diverticulosis of large intestine; Translations: [Diverticulosis of large intestine without perforation or abscess without bleeding] 03-12-2021 Chronic Essential hypertension (20 sources) Essential hypertension; Translations: [Essential (primary) hypertension] Onset: 7 04-22-2021 Chronic Gastrointestinal hemorrhage (1 source) Gastrointestinal hemorrhage; Translations: [Hemorrhage of anus and rectum] Episodic Genitourinary symptoms and ill-defined conditions (20 sources) Mixed urinary incontinence; Translations: [Mixed incontinence] Onset: 1 Chronic Heart valve disorders (20 sources) Rheumatic mitral valve disease, unspecified; Translations: [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 11-23-2004 Chronic Menopausal disorders (20 sources) Atrophy of vagina; Translations: [Postmenopausal atrophic vaginitis] Onset: 6 07-27-2015 Chronic Mood disorders (20 sources) Mild depression; 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] Onset: 1 10-09-2020 Chronic Nonspecific chest pain (1 source) Chest pain; Translations: [Chest pain, unspecified] Episodic Osteoarthritis (20 sources) Bilateral shoulder osteoarthritis; Translations: [Primary osteoarthritis, right shoulder] Onset: 1 07-25-2020 Chronic Other aftercare (2 sources) Device in situ; Translations: [Encounter for adjustment and management of vascular access device] 09-24-2022 Episodic Other circulatory disease (20 sources) Device in situ; Translations: [Presence of other vascular implants and grafts] Onset: 2 07-06-2021 Chronic Other congenital anomalies (20 sources) Accessory breast; 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] Onset: 7 01-03-2017 Chronic Other connective tissue disease (20 sources) Polymyalgia rheumatica; Translations: [Polymyalgia rheumatica] Onset: 4 01-14-2021 Chronic Other diseases of veins and lymphatics (1 source) Peripheral venous insufficiency; Translations: [Venous insufficiency (chronic) (peripheral)] Episodic Other female genital disorders (20 sources) Vaginal bleeding; Translations: [Abnormal uterine and vaginal bleeding, unspecified] Onset: 2 07-06-2021 Chronic Other female genital disorders (1 source) Abnormal uterine bleeding; Translations: [Abnormal uterine and vaginal bleeding, unspecified] Chronic Other female genital disorders (3 sources) Old laceration of cervix; Translations: [Old laceration of cervix uteri] Episodic Other gastrointestinal disorders (20 sources) Malabsorption - iron; Translations: [Intestinal malabsorption, unspecified] Onset: 3 Chronic Other infections; including parasitic (3 sources) H/O: infectious disease; Translations: [Personal history of other infectious and parasitic diseases] Episodic Other infections; including parasitic (1 source) Personal history of other infectious and parasitic diseases; Translations: [History of ESBL E. coli infection] Onset: 2 Episodic Other liver diseases (20 sources) Cirrhosis of liver; Translations: [Unspecified cirrhosis of liver] Onset: 1 02-09-2021 Chronic Other liver diseases (20 sources) Non-alcoholic fatty liver; Translations: [Fatty (change of) liver, not elsewhere classified] Onset: 1 02-09-2021 Chronic Other liver diseases (1 source) Secondary biliary cirrhosis; Translations: [Secondary biliary cirrhosis] Chronic Other liver diseases (20 sources) Fatty (change of) liver, not elsewhere classified; Translations: [Other chronic nonalcoholic liver disease] Onset: 1 02-09-2021 Chronic Other lower respiratory disease (3 sources) Dyspnea; Translations: [Shortness of breath] Episodic Other lower respiratory disease (2 sources) Rib pain; Translations: [Pleurodynia] Episodic Other nervous system disorders (20 sources) Neuropathy; Translations: [Polyneuropathy, unspecified] Onset: 0 04-02-2019 Chronic Other non-traumatic joint disorders (1 source) Pain in right knee; Translations: [Pain in joint, lower leg] Episodic Other non-traumatic joint disorders (2 sources) Pain of right wrist; Translations: [Pain in right wrist] 11-25-2022 Episodic Other screening for suspected conditions (not mental disorders or infectious disease) (20 sources) Endometrium thickened; Translations: [Abnormal findings on diagnostic imaging of other specified body structures] Onset: 1 01-14-2021 Chronic Residual codes; unclassified (20 sources) Sleep apnea; Translations: [Sleep apnea, unspecified] Onset: 7 03-12-2021 Chronic Residual codes; unclassified (2 sources) Obstructive sleep apnea syndrome; Translations: [Obstructive sleep apnea (adult) (pediatric)] Chronic Residual codes; unclassified (1 source) History of clinical finding in subject; Translations: [Personal history of other medical treatment] Episodic Rheumatoid arthritis and related disease (20 sources) Rheumatoid arthritis of knee; Translations: [Rheumatoid arthritis with rheumatoid factor of unspecified knee without organ or systems involvement] Onset: 5 12-12-2014 Chronic Past or Other Problems Problem Classification Problem Date Documented Date Episodic/Chronic Biliary tract disease (20 sources) Cholelithiasis without obstruction; Translations: [Calculus of gallbladder without cholecystitis without obstruction] Onset: 07-06-2021 Episodic Cancer of breast (7 sources) History of malignant neoplasm of breast; Translations: [Personal history of malignant neoplasm of breast] Onset: 06-18-2022 Episodic Deficiency and other anemia (20 sources) Anemia; Translations: [Anemia, unspecified] Onset: 08-12-2021 08-13-2021 Episodic Fever of unknown origin (20 sources) Fever; Translations: [Fever, unspecified] Onset: 07-06-2021 07-06-2021 Episodic Genitourinary symptoms and ill-defined conditions (20 sources) Urgent desire to urinate; Translations: [Urgency of urination] Onset: 07-27-2015 07-27-2015 Episodic Other aftercare (20 sources) Long-term current use of anticoagulant; Translations: [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] Onset: 02-25-2015 03-22-2019 Episodic Other and unspecified benign neoplasm (20 sources) History of polyp of colon; Translations: [Personal history of colonic polyps] Onset: 09-05-2017 09-05-2017 Episodic Other connective tissue disease (20 sources) Recurrent falls ; Translations: [Repeated falls] Onset: 12-06-2020 12-06-2020 Episodic Other connective tissue disease (20 sources) Swelling of left lower limb; Translations: [Other specified soft tissue disorders] Onset: 08-12-2021 08-13-2021 Episodic Other disorders of stomach and duodenum (20 sources) Nonulcer dyspepsia; Translations: [Functional dyspepsia] Onset: 09-05-2017 09-05-2017 Episodic Other infections; including parasitic (20 sources) History of Clostridium difficile intestinal infection; Translations: [Personal history of other infectious and parasitic diseases] Onset: 12-26-2015 04-09-2021 Episodic Other lower respiratory disease (1 source) Pleurodynia; Translations: [Rib pain on right side] Onset: 06-05-2022 Episodic Other nervous system disorders (20 sources) Impairment of balance; Translations: [Other abnormalities of gait and mobility] Onset: 12-06-2020 12-06-2020 Episodic Other non-traumatic joint disorders (1 source) Pain in right wrist; Translations: [Pain in right wrist] Onset: 11-25-2022 Episodic Other skin disorders (20 sources) Primary focal hyperhidrosis; Translations: [Primary focal hyperhidrosis, unspecified] Onset: 05-29-2012 05-29-2012 Episodic Residual codes; unclassified (1 source) Estrogen receptor positive status [ER+]; Translations: [Malignant neoplasm of lower-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, estrogen receptor positive (HCC)] Onset: 04-17-2022 Episodic Urinary tract infections (20 sources) Acute cystitis; Translations: [Acute cystitis without hematuria] Onset: 01-28-2011 07-08-2021 Episodic Results Test Name Value Interpretation Reference Range Facil ity Vital Signs Date Time Vital Sign Value Performing Clinician Nikita mendoza 02-11-2023 10:15-0500 Body temperature 97.9 [degF] Angelic Arreola APRN.MIMEOGRAPHER Work Phone: [facility] 02-11-2023 10:15-0500 Body weight 80.74 kg Angelic Arreola APRN.MIMEOGRAPHER Work Phone: [facility] 02-11-2023 10:15-0500 Diastolic blood pressure 70 mm[Hg] Angelic Arreola APRN.MIMEOGRAPHER Work Phone: [facility] 02-11-2023 10:15-0500 Heart rate 62 /min Angelic Arreola APRN.MIMEOGRAPHER Work Phone: [facility] 02-11-2023 10:15-0500 SaO2% (BldA) [Mass fraction] 99 % Angelic Arreola APRN.MIMEOGRAPHER Work Phone: [facility] 02-11-2023 10:15-0500 Systolic blood pressure 124 mm[Hg] Angelic Arreola APRN.MIMEOGRAPHER Work Phone: [facility] 12-13-2022 14:31-0400 Body height 167.6 cm Juliet Morgan APRN.MIMEOGRAPHER Work Phone: [facility] 12-13-2022 14:31-0400 Body weight 79.38 kg Juliet Morgan APRN.MIMEOGRAPHER Work Phone: [facility] 12-13-2022 14:31-0400 Diastolic blood pressure 60 mm[Hg] Juliet Morgan APRN.MIMEOGRAPHER Work Phone: [facility] 12-13-2022 14:31-0400 Heart rate 68 /min Juliet Morgan APRN.MIMEOGRAPHER Work Phone: [facility] 12-13-2022 14:31-0400 SaO2% (BldA) [Mass fraction] 97 % Juliet Morgan APRN.MIMEOGRAPHER Work Phone: [facility] 12-13-2022 14:31-0400 Systolic blood pressure 130 mm[Hg] Juliet Morgan APRN.MIMEOGRAPHER Work Phone: [facility] 09-05-2022 09:20-0400 Body height 167.6 cm Cecilio Amalfitano DO Work Phone: [facility] 09-05-2022 09:20-0400 Body weight 78.02 kg Cecilio Amalfitano DO Work Phone: [facility] 09-05-2022 09:20-0400 Diastolic blood pressure 64 mm[Hg] Cecilio Amalfitano DO Work Phone: [facility] 09-05-2022 09:20-0400 Heart rate 69 /min Cecilio Amalfitano DO Work Phone: [facility] 09-05-2022 09:20-0400 Systolic blood pressure 124 mm[Hg] Cecilio Amalfitano DO Work Phone: [facility] 08-27-2022 11:27-0400 Body temperature 98.4 [degF] Angelic Arreola INSURANCE PLAN SPECIALIST.MIMEOGRAPHER Work Phone: [facility] 08-27-2022 11:27-0400 Body weight 76.66 kg Angelic Arreola INSURANCE PLAN SPECIALIST.MIMEOGRAPHER Work Phone: [facility] 08-27-2022 11:27-0400 Diastolic blood pressure 56 mm[Hg] Angelic Arreola INSURANCE PLAN SPECIALIST.MIMEOGRAPHER Work Phone: [facility] 08-27-2022 11:27-0400 Heart rate 73 /min Angelic Arreola INSURANCE PLAN SPECIALIST.MIMEOGRAPHER Work Phone: [facility] 08-27-2022 11:27-0400 SaO2% (BldA) [Mass fraction] 96 % Angelic Arreola INSURANCE PLAN SPECIALIST.MIMEOGRAPHER Work Phone: [facility] 08-27-2022 11:27-0400 Systolic blood pressure 116 mm[Hg] Angelic Arreola INSURANCE PLAN SPECIALIST.MIMEOGRAPHER Work Phone: [facility] 06-05-2022 11:03-0400 Body temperature 97.81 [degF] Liberty Arreola INSURANCE PLAN SPECIALIST.MIMEOGRAPHER Work Phone: [facility] 06-05-2022 11:03-0400 Body weight 77.34 kg Liberty Arreola INSURANCE PLAN SPECIALIST.MIMEOGRAPHER Work Phone: [facility] 06-05-2022 11:03-0400 Diastolic blood pressure 54 mm[Hg] Liberty Arreola INSURANCE PLAN SPECIALIST.MIMEOGRAPHER Work Phone: [facility] 06-05-2022 11:03-0400 Heart rate 74 /min Liberty Arreola INSURANCE PLAN SPECIALIST.MIMEOGRAPHER Work Phone: [facility] 06-05-2022 11:03-0400 SaO2% (BldA) [Mass fraction] 97 % Liberty Arreola INSURANCE PLAN SPECIALIST.MIMEOGRAPHER Work Phone: [facility] 06-05-2022 11:03-0400 Systolic blood pressure 116 mm[Hg] Liberty Arreola INSURANCE PLAN SPECIALIST.MIMEOGRAPHER Work Phone: [facility] 04-17-2022 09:47-0500 Body temperature 97.9 [degF] Treatment Wstr Work Phone: [facility] 04-17-2022 09:47-0500 Diastolic blood pressure 60 mm[Hg] Treatment Wstr Work Phone: [facility] 04-17-2022 09:47-0500 Heart rate 77 /min Treatment Wstr Work Phone: [facility] 04-17-2022 09:47-0500 SaO2% (BldA) [Mass fraction] 97 % Treatment Wstr Work Phone: [facility] 04-17-2022 09:47-0500 Systolic blood pressure 126 mm[Hg] Treatment Wstr Work Phone: [facility] 04-15-2022 14:39-0500 Body temperature 97.2 [degF] Treatment Wstr Work Phone: [facility] 04-15-2022 14:39-0500 Diastolic blood pressure 62 mm[Hg] Treatment Wstr Work Phone: [facility] 04-15-2022 14:39-0500 Heart rate 68 /min Treatment Wstr Work Phone: [facility] 04-15-2022 14:39-0500 Respiratory rate 16 /min Treatment Wstr Work Phone: [facility] 04-15-2022 14:39-0500 Systolic blood pressure 135 mm[Hg] Treatment Wstr Work Phone: [facility] 04-12-2022 13:55-0500 Body temperature 97.7 [degF] Treatment Wstr Work Phone: [facility] 04-12-2022 13:55-0500 Diastolic blood pressure 47 mm[Hg] Treatment Wstr Work Phone: [facility] 04-12-2022 13:55-0500 Heart rate 71 /min Treatment Wstr Work Phone: [facility] 04-12-2022 13:55-0500 Systolic blood pressure 119 mm[Hg] Treatment Wstr Work Phone: [facility] 04-10-2022 10:54-0500 Body temperature 97.3 [degF] Treatment Wstr Work Phone: [facility] 04-10-2022 10:54-0500 Diastolic blood pressure 54 mm[Hg] Treatment Wstr Work Phone: [facility] 04-10-2022 10:54-0500 Heart rate 78 /min Treatment Wstr Work Phone: [facility] 04-10-2022 10:54-0500 Systolic blood pressure 134 mm[Hg] Treatment Wstr Work Phone: [facility] 04-09-2022 14:29-0500 Body height 167.6 cm Taty Argueta APRN.MIMEOGRAPHER Work Phone: [facility] 04-09-2022 14:29-0500 Body weight 76.66 kg Taty Argueta APRN.MIMEOGRAPHER Work Phone: [facility] 04-09-2022 14:29-0500 Diastolic blood pressure 58 mm[Hg] Taty Argueta INSURANCE PLAN SPECIALIST.MIMEOGRAPHER Work Phone: [facility] 04-09-2022 14:29-0500 Heart rate 75 /min Taty Argueta INSURANCE PLAN SPECIALIST.MIMEOGRAPHER Work Phone: [facility] 04-09-2022 14:29-0500 SaO2% (BldA) [Mass fraction] 98 % Taty Argueta INSURANCE PLAN SPECIALIST.MIMEOGRAPHER Work Phone: [facility] 04-09-2022 14:29-0500 Systolic blood pressure 118 mm[Hg] Taty Argueta APRN.MIMEOGRAPHER Work Phone: [facility] 04-08-2022 11:01-0500 Body temperature 97.3 [degF] Treatment Wstr Work Phone: [facility] 04-08-2022 11:01-0500 Diastolic blood pressure 57 mm[Hg] Treatment Wstr Work Phone: [facility] 04-08-2022 11:01-0500 Heart rate 79 /min Treatment Wstr Work Phone: [facility] 04-08-2022 11:01-0500 Systolic blood pressure 125 mm[Hg] Treatment Wstr Work Phone: [facility] 03-06-2022 14:21-0500 Body temperature 97.11 [degF] Angelic Arreola INSURANCE PLAN SPECIALIST.MIMEOGRAPHER Work Phone: [facility] 03-06-2022 14:21-0500 Body weight 76.43 kg Angelic Arreola INSURANCE PLAN SPECIALIST.MIMEOGRAPHER Work Phone: [facility] 03-06-2022 14:21-0500 Diastolic blood pressure 57 mm[Hg] Angelic Blackmonenter INSURANCE PLAN SPECIALIST.MIMEOGRAPHER Work Phone: [facility] 03-06-2022 14:21-0500 Heart rate 72 /min Angelic Blackmonenter INSURANCE PLAN SPECIALIST.MIMEOGRAPHER Work Phone: [facility] 03-06-2022 14:21-0500 SaO2% (BldA) [Mass fraction] 100 % Angelic Blackmonenter INSURANCE PLAN SPECIALIST.MIMEOGRAPHER Work Phone: [facility] 03-06-2022 14:21-0500 Systolic blood pressure 119 mm[Hg] Angelic Arreola INSURANCE PLAN SPECIALIST.MIMEOGRAPHER Work Phone: [facility] 01-02-2022 13:31-0400 Body height 167.6 cm Basilia Hernández MD Work Phone: [facility] 01-02-2022 13:31-0400 Body weight 74.84 kg Basilia Hernández MD Work Phone: [facility] 01-02-2022 13:31-0400 Diastolic blood pressure 62 mm[Hg] Basilia Hernández MD Work Phone: [facility] [facility] 01-02-2022 13:31-0400 Systolic blood pressure 126 mm[Hg] Basilia Hernández MD Work Phone: [facility] 10-11-2021 07:56-0400 Body temperature 98.01 [degF] Jeancarlos Hooker MD Work Phone: [facility] 10-11-2021 07:56-0400 Body weight 77.56 kg Jeancarlos Hooker MD Work Phone: [facility] 10-11-2021 07:56-0400 Diastolic blood pressure 48 mm[Hg] Jeancarlos Hooker MD Work Phone: [facility] 10-11-2021 07:56-0400 Heart rate 78 /min Jeancarlos Hooker MD Work Phone: [facility] 10-11-2021 07:56-0400 Respiratory rate 16 /min Jeancarlos Hooker MD Work Phone: [facility] 10-11-2021 07:56-0400 SaO2% (BldA) [Mass fraction] 100 % Jeancarlos Hooker MD Work Phone: [facility] 10-11-2021 07:56-0400 Systolic blood pressure 115 mm[Hg] Jeancarlos Hooker MD Work Phone: [facility] 09-26-2021 14:00-0400 Body height 167.6 cm Basilia Hernández MD Work Phone: [facility] 09-26-2021 14:00-0400 Body weight 77.11 kg Basilia Hernández MD Work Phone: [facility] 09-18-2021 09:15-0400 Body temperature 97.39 [degF] Angelic Arreola INSURANCE PLAN SPECIALIST.MIMEOGRAPHER Work Phone: [facility] 09-18-2021 09:15-0400 Body weight 77.11 kg Liberty Arreola INSURANCE PLAN SPECIALIST.MIMEOGRAPHER Work Phone: [facility] 09-18-2021 09:15-0400 Diastolic blood pressure 47 mm[Hg] Angelic Arreola INSURANCE PLAN SPECIALIST.MIMEOGRAPHER Work Phone: [facility] 09-18-2021 09:15-0400 Heart rate 75 /min Angelic Arreola INSURANCE PLAN SPECIALIST.MIMEOGRAPHER Work Phone: [facility] 09-18-2021 09:15-0400 Systolic blood pressure 108 mm[Hg] Angelic Arreola INSURANCE PLAN SPECIALIST.MIMEOGRAPHER Work Phone: [facility] 09-18-2021 09:12-0400 Body weight 77.25 kg Lab/Port Wstr Work Phone: [facility] 09-11-2021 10:39-0400 Body weight 76.66 kg Mona Hebert MD Work Phone: [facility] 09-11-2021 10:39-0400 Diastolic blood pressure 58 mm[Hg] Mona Hebert MD Work Phone: [facility] 09-11-2021 10:39-0400 Systolic blood pressure 124 mm[Hg] Mona Hebert MD Work Phone: [facility] 09-05-2021 13:15-0400 Body height 167.6 cm Cecilio Ibarra DO Work Phone: [facility] 09-05-2021 13:15-0400 Body weight 77.66 kg Cecilio Ibarra DO Work Phone: [facility] 09-05-2021 13:15-0400 Diastolic blood pressure 54 mm[Hg] Cecilio Ibarra DO Work Phone: [facility] 09-05-2021 13:15-0400 Heart rate 73 /min Cecilio Ibarra DO Work Phone: [facility] 09-05-2021 13:15-0400 SaO2% (BldA) [Mass fraction] 97 % Cecilio Ibarra DO Work Phone: [facility] 09-05-2021 13:15-0400 Systolic blood pressure 104 mm[Hg] Cecilio Ibarra DO Work Phone: [facility] 08-30-2021 13:17-0400 Body weight 78.47 kg Mona Hebert MD Work Phone: [facility] 08-15-2021 16:04-0400 Body weight 78.47 kg Mona Hebert MD Work Phone: [facility] 08-15-2021 16:04-0400 Diastolic blood pressure 58 mm[Hg] Mona Hebert MD Work Phone: [facility] 08-15-2021 16:04-0400 Systolic blood pressure 118 mm[Hg] Mona Hebert MD Work Phone: [facility] 08-08-2021 14:10-0400 Body weight 78.02 kg An Ta APRN.CNP Work Phone: [facility] 08-08-2021 14:10-0400 Diastolic blood pressure 66 mm[Hg] An Older INSURANCE PLAN SPECIALIST.MIMEOGRAPHER Work Phone: [facility] 08-08-2021 14:10-0400 Heart rate 68 /min An Older INSURANCE PLAN SPECIALIST.MIMEOGRAPHER Work Phone: [facility] 08-08-2021 14:10-0400 Respiratory rate 16 /min An Older INSURANCE PLAN SPECIALIST.MIMEOGRAPHER Work Phone: [facility] 08-08-2021 14:10-0400 Systolic blood pressure 116 mm[Hg] An Older INSURANCE PLAN SPECIALIST.MIMEOGRAPHER Work Phone: [facility] 07-05-2021 09:41-0400 Body height 167.6 cm Johnny Turk MD Work Phone: [facility] 07-05-2021 09:41-0400 Body temperature 98.6 [degF] Johnny Turk MD Work Phone: [facility] 07-05-2021 09:41-0400 Body weight 79.83 kg Johnny Turk MD Work Phone: [facility] 07-05-2021 09:41-0400 Diastolic blood pressure 60 mm[Hg] Johnny Turk MD Work Phone: [facility] 07-05-2021 09:41-0400 Heart rate 69 /min Johnny Turk MD Work Phone: [facility] 07-05-2021 09:41-0400 SaO2% (BldA) [Mass fraction] 100 % Johnny Turk MD Work Phone: [facility] 07-05-2021 09:41-0400 Systolic blood pressure 106 mm[Hg] Johnny Turk MD Work Phone: [facility] 07-03-2021 11:58-0400 Body temperature 98.4 [degF] Alma Older INSURANCE PLAN SPECIALIST.MIMEOGRAPHER Work Phone: [facility] 07-03-2021 11:58-0400 Body weight 78.93 kg Alma Older INSURANCE PLAN SPECIALIST.MIMEOGRAPHER Work Phone: [facility] 07-03-2021 11:58-0400 Diastolic blood pressure 64 mm[Hg] Alma Older INSURANCE PLAN SPECIALIST.MIMEOGRAPHER Work Phone: [facility] 07-03-2021 11:58-0400 Heart rate 67 /min Alma Older INSURANCE PLAN SPECIALIST.MIMEOGRAPHER Work Phone: [facility] 07-03-2021 11:58-0400 Respiratory rate 12 /min Alma Older INSURANCE PLAN SPECIALIST.MIMEOGRAPHER Work Phone: [facility] 07-03-2021 11:58-0400 SaO2% (BldA) [Mass fraction] 97 % Alma Older INSURANCE PLAN SPECIALIST.MIMEOGRAPHER Work Phone: [facility] 07-03-2021 11:58-0400 Systolic blood pressure 118 mm[Hg] Alma Older INSURANCE PLAN SPECIALIST.MIMEOGRAPHER Work Phone: [facility] 06-05-2021 10:40-0400 Body height 167.6 cm Aby Bruner DO Work Phone: [facility] 06-05-2021 10:40-0400 Body weight 79.83 kg Aby Bruner DO Work Phone: [facility] 06-05-2021 10:40-0400 Diastolic blood pressure 62 mm[Hg] Aby Bruner DO Work Phone: [facility] 06-05-2021 10:40-0400 Heart rate 65 /min Aby Bruner DO Work Phone: [facility] 06-05-2021 10:40-0400 SaO2% (BldA) [Mass fraction] 99 % Aby Bruner DO Work Phone: [facility] 06-05-2021 10:40-0400 Systolic blood pressure 110 mm[Hg] Aby Bruner DO Work Phone: [facility] Encounters Encounter Date Encounter Type Care Provider Facility Start: 02-24-2023 End: 02-24-2023 ambulatory ANSHU RAY Facility:[facility] Start: 02-11-2023 End: 02-11-2023 ambulatory [facility] Facility:[facility] Start: 02-11-2023 End: 02-11-2023 ambulatory [facility] INSURANCE PLAN SPECIALIST.MIMEOGRAPHER Work Phone: Hematology/Oncology Procedures Date Procedure Procedure Detail Performing Clinician Start: 11-25-2022 Radex wrist complete minimum 3 views Stella Vetovitz PA-C Work Phone: Start: 11-25-2022 Arthrocentesis aspir &/inj major jt/bursa w/o us Stella Vetovitz PA-C Work Phone: Start: 09-05-2022 Ecg routine ecg w/le ast 12 lds i&r only [facility] Provider Start: 06-05-2022 Radex ribs unilatera l 2 views [facility] INSURANCE PLAN SPECIALIST.MIMEOGRAPHER Work Phone: Start: 03-22-2022 Blood count complete auto&auto difrntl wbc Sal Bonilla DO Work Phone: Start: 03-14-2022 Comprehensive metabo lic panel Sal Dozier Chad DO Work Phone: Start: 01-21-2022 Arthrocentesis aspir &/inj major jt/bursa w/o us Stella Vetovitz PA-C Work Phone: Start: 01-02-2022 Urnls dip stick/tabl et rgnt auto w/o microscopy Basilia Hernández MD Work Phone: Start: 10-16-2021 End: 10-16-2021 Blood count complete auto&auto difrntl wbc Ariel Sainz MD Work Phone: Start: 10-13-2021 Prothrombin time [facility] Pr ovider Start: 09-26-2021 Urnls dip stick/tabl et rgnt auto w/o microscopy Basilia Hernández MD Work Phone: Start: 08-30-2021 Urnls dip stick/tabl et rgnt auto w/o microscopy Mona Hebert MD Work Phone: Start: 08-08-2021 Urnls dip stick/tabl et rgnt auto w/o microscopy An Ta INSURANCE PLAN SPECIALIST.MIMEOGRAPHER Work Phone: Start: 01-12-2021 Antibody screen Plan of Treatment Date Care Activity Detail Author Start: 03-14-2025 DIABETES SCREEN DIABETES SCREEN [facility] Start: 03-14-2025 Diabetes Screening Diabetes Screening [facility] Start: 08-13-2024 DIABETES SCREEN DIABETES SCREEN [facility] Start: 2024 DIABETES SCREEN DIABETES SCREEN [facility] Start: 07-11-2024 DIABETES SCREEN DIABETES SCREEN [facility] Start: 07-06-2024 DIABETES SCREEN DIABETES SCREEN [facility] Start: 07-05-2024 DIABETES SCREEN DIABETES SCREEN [facility] Start: 05-22-2024 DIABETES SCREEN DIABETES SCREEN [facility] Start: 11-17-2022 Urine microalbumin profile [facility] Start: 11-15-2022 Covid-19 Vaccine () Covid-19 Vaccine () [facility] Start: 11-15-2022 Influenza vaccination [facility] Start: 09-19-2022 End: 11-19-2022 CBC panel - Blood by Automated count CBC Lab Routine Paroxysmal atrial fibrillation (HCC) Rheumatic mitral regurgitation Essential hypertension Mixed hyperlipidemia Obstructive sleep apnea syndrome Shortness of breath PAF (paroxysmal atrial fibrillation) (HCC) SVT (supraventricular tachycardia) (HCC) Expected: 09/19/2022, Expires: 11/19/2022 [facility] Work Phone: Immunizations Immunization Date Immunization Notes Care Provider Kevin evans 01-18-2021 influenza, high-dose , quadrivalent vaccine (FLUZONE HIGH DOSE QUADRIVALENT) Aby Bruner DO Work Phone: [facility] Work Phone: 01-18-2021 influenza virus vaccine, unspecified formulation Stella Casper PA-C Work Phone: [facility] 11-22-2020 COVID-19 vaccine, ag e 12+ yr ([employer] - PURPLE TOP) Aby Bruner DO Work Phone: [facility] 05-04-2020 COVID-19 vaccine, fu ll dose (MODERNA) Aby Bruner DO Work Phone: [facility] 04-06-2020 COVID-19 vaccine, fu ll dose (MODERNA) Aby Bruner DO Work Phone: [facility] 12-18-2019 influenza, high-dose , quadrivalent vaccine (FLUZONE HIGH DOSE QUADRIVALENT) Aby Bruner DO Work Phone: [facility] 12-30-2018 influenza, high dose seasonal, preservative-free Aby Bruner DO Work Phone: [facility] Work Phone: 12-09-2017 influenza, high dose seasonal, preservative-free Aby Bruner DO Work Phone: [facility] 12-02-2016 influenza, high dose seasonal, preservative-free Aby Bruner DO Work Phone: [facility] Work Phone: 12-05-2015 influenza, high dose seasonal, preservative-free Aby Bruner DO Work Phone: [facility] 01-10-2015 pneumococcal conjuga te vaccine, 13 valent Aby Bruner DO Work Phone: [facility] Work Phone: 12-12-2014 influenza, high dose seasonal, preservative-free Aby Bruner DO Work Phone: [facility] 12-22-2013 influenza, seasonal, injectable Aby Bruner DO Work Phone: [facility] 01-09-2013 influenza virus vaccine, unspecified formulation Aby Bruner DO Work Phone: [facility] Work Phone: 11-17-2012 tetanus toxoid, redu issac diphtheria toxoid, and acellular pertussis vaccine, adsorbed Aby Bruner DO Work Phone: [facility] 01-16-2012 influenza virus vaccine, unspecified formulation Aby Bruner DO Work Phone: [facility] 06-07-2011 zoster vaccine, live Opal Bruner DO Work Phone: [facility] 02-01-2011 influenza virus vaccine, unspecified formulation Aby Bruner DO Work Phone: [facility] Work Phone: 01-29-2010 influenza virus vaccine, unspecified formulation Aby Bruner DO Work Phone: [facility] 12-24-2008 influenza virus vaccine, unspecified formulation Aby Bruner DO Work Phone: [facility] 01-20-2008 influenza virus vaccine, unspecified formulation Aby Bruner DO Work Phone: [facility] 12-21-2007 pneumococcal polysaccharide vaccine, 23 valent Aby Bruner DO Work Phone: [facility] Work Phone: 01-14-2007 influenza virus vaccine, unspecified formulation Aby Bruner DO Work Phone: [facility] Work Phone: 01-27-2006 influenza virus vaccine, unspecified formulation Aby Bruner DO Work Phone: [facility] 01-24-2005 influenza virus vaccine, unspecified formulation Aby Bruner DO Work Phone: [facility] Work Phone: 05-15-2002 tetanus and diphther ia toxoids, adsorbed, preservative free, for adult use (2 Lf of tetanus toxoid and 2 Lf of diphtheria toxoid) Aby Bruner DO Work Phone: [facility] Work Phone: NEGATED: Highlighted row has not occurred!01-12-2021 influenza, high-dose, quadrivalent vaccine (FLUZONE HIGH DOSE QUADRIVALENT) Aby Bruner DO Work Phone: [facility] Payers Date Payer Category Payer Medicare [id number] 2016 Unknown [employer]ORENCIO MATIAS ME DICARE SUPPLEMENT [id number] 2016-Present [phone] [address] [place] [address] Indemnity [id number] 2016 Unknown [employer] MATIAS ME DICARE SUPPLEMENT [id number] 2016-Present [phone] [id number] Indemnity [id number] 2003 Medicare MEDICARE MEDICAR E A AND B [id number] 2003-Present [phone] [place] [address] Medicare [id number] 2003 Medicare MEDICARE MEDICAR E A AND B [id number] 2003-Present [phone] [place] [address] Medicare [id number] 2003 Medicare [id number] Social History Date Type Detail Facility Start: 01-02-2022 Tobacco smoking stat us ILIS Never smoked tobacco [facility] Start: 06-05-2021 End: 02-11-2023 Alcohol intake Current non-drinker of alcohol (finding) [facility] Start: 01-23-2020 End: 01-18-2021 History SDOH Alcohol Frequency 1 [facility] Start: 01-23-2020 History SDOH Social Connections Phone 5 [facility] Start: 01-23-2020 History SDOH Social Connections Get Together 98 [facility] Start: 01-23-2020 History SDOH Social Connections Living 3 [facility] Start: 01-23-2020 End: 01-18-2021 History SDOH Stress 2 [facility] Start: 01-23-2020 Education 17 [facility] Start: 1935 Sex Assigned At Female C [facility] Work Phone: Start: 05-20-2021 End: 01-21-2022 Exposure to SARS-CoV-2 (event) Not sure [facility] Start: 06-09-2021 End: 08-08-2021 Exposure to SARS-CoV-2 (event) Unable to assess [facility] Work Phone: Start: 01-02-2022 Tobacco use and exposure Smokeless tobacco non-user [facility] Start: 01-23-2020 End: 07-24-2022 History of Social function [facility] Start: 01-23-2020 End: 07-24-2022 Social connection and isolation panel [facility] How often do you get together with friends or relatives? Patient refused [facility] Are you now , , , , never or living with a partner? [facility] How often to you hav e a drink containing alcohol? Never [facility] Do you feel stress - tense, restless, nervous, or anxious, or unable to sleep at night because your mind is troubled all the time - these days [OSQ] Only a little [facility] (I/We) worried wheth er (my/our) food would run out before (I/we) got money to buy more. Never true [facility] In the past 12 month s, was there a time when you were not able to pay the mortgage or rent on time? No [facility] Start: 06-06-2018 Gender identity Identifies as female gender (finding) [facility] Start: 07-28-2019 Sexual orientation Heterosexual (anna lama) [facility] Work Phone: Clinical Notes 01-10-2021 to 02-11-2023 Angelic Arreola APRN.MIMEOGRAPHER - 02/11/2023 10:05 AM ESTTelephone Encounter - Sheryl Mercado RN - 12/19/2022 2:42 PM Vania Stephen RN - 12/17/2022 7:27 AM EDTPatient Instructions Note Date & Type Note Facility 02-11-2023 History of Present illness Narrative Chief Complaint Patient presents with: Established Patient HPI: Christian Landrum is a 87 year old female who presents here today for follow up breast cancer/LEIA. Per Dr. Bonilla's previous note: H/o underwent a left-sided simple mastectomy for a T2 N0 stage IIA hormone-receptor negative by IHC (positive by RT-PCR testing), HER-2 nonamplified breast cancer. Received 3 cycles of docetaxel and cyclophosphamide. Oncotype PCR suggested low level ER expression. Changed to exemestane due to severe b/l leg pain (trochanteric bursitis). Subsequently changed to tamoxifen 04/2010. CT A/P in 07/23 revealed new liver lesion which was not visualized on US. MRI demonstrated the lesion in anterior portion of right lobe of liver not typical appearance for hemangioma or FNH. PET scan was negative. Follow up MRI 10/23 showed the lesion to be stable. Diagnosed with polymyalgia rheumatica 2012. Completed aromasin/tamoxifen therapy 2012. Recently dx with new right sided primary breast cancer. Was found to have non-palpable abnormality on right sided screening mammogram. 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 Stains for both estrogen and progesterone receptors were positive (greater than 95% for both; strong for ER, moderate for ND). HER-2 3+. Had been using Estrace cream to help control symptoms of vaginal atrophy and recurrent UTIs. Underwent right mastectomy with SLN biopsy 08/29/2015. Pathology: A. Right axillary sentinel lymph node #1, excision: - Three lymph nodes negative for malignancy (0/3). B. Right breast, mastectomy: - Invasive ductal carcinoma, see synoptic report. - Atypical lobular hyperplasia. - Large hemorrhagic, organizing biopsy site. - Apocrine cysts, adenosis and stromal fibrosis. - Nipple with no pathologic change. C. Right axillary sentinel lymph node #2, excision: - One lymph node, negative for malignancy (0/1). SYNOPTIC REPORT OF [facility] RIGHT BREAST MASTECTOMY: Part: B Specimen Laterality: Right Procedure: Total mastectomy (including nipple and skin) Wire Localization: Wire absent Lymph Node Sampling: [place] lymph node(s) Tumor size: Size of largest invasive carcinoma: Greatest dimension of largest focus of invasion >1 mm: 8 mm Tumor Focality: Single focus of invasive carcinoma Macroscopic-Microscopic Extension of tumor: Skin: Uninvolved Nipple: Uninvolved Skeletal muscle: Not applicable Invasive Carcinoma Margins: Margins uninvolved by invasive carcinoma Distance from closest margin: 20 mm Closest Uninvolved Margin:Deep DCIS Margins: Margins uninvolved by DCIS (DCIS present) Distance from closest margin: 20 mm Closest Uninvolved Margin:Deep Histologic Type of Invasive Carcinoma: Invasive ductal carcinoma (no special type or not otherwise specified) Histologic Grade: Glandular (Acinar) / Tubular Differentiation: Score 2 Nuclear Pleomorphism: Score 3 Mitotic Rate: Score 1 Overall Grade: Grade II Lymph-Vascular Invasion: Not identified Ductal Carcinoma In Situ: DCIS is present Architectural Pattern:Cribriform DCIS Nuclear Grade: Grade III (high) DCIS Necrosis: Present, focal (small foci or single cell necrosis) Lymph Nodes: Total number of nodes examined (sentinel and nonsentinel): 4 Number of sentinel lymph nodes examined: 4 Number of lymph nodes with macrometastases (>2 mm): 0 Number of lymph nodes with micrometastases (>0.2 mm to 2 mm and/or >200 cells): 0 Number of lymph nodes with isolated tumor cells (<= 0.2 mm and <= 200 cells): 0 TNM Descriptor(s): Not applicable Primary Tumor (Invasive Carcinoma) (pT): pT1b Regional Lymph Nodes (pN): Modifier: (sn) Category (pN): pN0 Distant metastasis: Not Applicable Completed 5 years tamoxifen therapy. S/p underwent hysteroscopy D&C at [facility] on 08/23/[address] Hebert. Path. Benign. Pt. resides at [facility]. Pt. here today with her daughter. Last received iron sucrose 2022. No new concerns today. Appetite: Good. Wt. up. Energy level: It's been better. Denies fevers or recent illness. Resp:denies cough or sob, occ jennings-followed by PULM-using bi-pap, h/o allergies Cardiac:denies chest pain/palpitations h/o A.fib.-followed by Cards GI:denies abd pain (H/o IBS, colitis), n/v, moving bowels regularly-does not tolerate dairy :denies dysuria/hematuria-chronic UTI-followed by Urology Extrem:h/o RA, joint pain dx in her 40's -followed by Rheum-off of methotrexate, occ. pred bursts for RA flares Endo:denies hot flashes Neuro:+neuropathy to feet sometimes better, sometimes worse. Skin:denies rashes/lesions Heme:denies bleeding The ROS is otherwise negative. Past medical history, appointments, medications, allergies reviewed. No changes. EXAM: BP 124/70 Pulse 62 Temp 36.6 C (97.9 F) Wt 80.7 kg (178 lb) SpO2 99% BMI 28.73 kg/m APPEARANCE Well appearing, alert, in no acute distress, well-hydrated, well nourished. HEART RRR with normal S1 and S2, no murmurs LUNG clear to auscultation BREAST FEMALE b/l mastectomy scars, no nodule/skin changes LYMPH NODES No cervical lymphadenopathy, No supraclavicular lymphadenopathy, and No axillary lymphadenopathy. ABDOMEN bowel sounds normoactive, soft, non-tender EXTREMITIES No edema NEURO Awake, alert and oriented x 3, using wheeled walker, and No involuntary motions. SKIN Skin color, texture, turgor normal, no suspicious rashes or lesions LABS: Component Latest Ref Rng & Units 08/09/2022 11/19/2022 02/11/2023 WBC 3.70 - 11.00 k/uL 6.06 5.25 7.00 RBC 3.90 - 5.20 m/uL 3.34 (L) 3.29 (L) 3.39 (L) Hemoglobin 11.5 - 15.5 g/dL 11.9 11.5 12.0 Hematocrit 36.0 - 46.0 % 34.7 (L) 34.1 (L) 34.9 (L) MCV 80.0 - 100.0 fL 103.9 (H) 103.6 (H) 102.9 (H) MCH 26.0 - 34.0 pg 35.6 (H) 35.0 (H) 35.4 (H) MCHC 30.5 - 36.0 g/dL 34.3 33.7 34.4 RDW-CV 11.5 - 15.0 % 13.9 13.3 14.5 Platelet Count 150 - 400 k/uL 113 (L) 104 (L) 104 (L) MPV 9.0 - 12.7 fL 9.1 9.5 9.1 Neut% % 60.1 65.3 65.6 Abs Neut (ANC) 1.45 - 7.50 k/uL 3.64 3.43 4.59 Lymph% % 25.9 20.2 22.0 Abs Lymph 1.00 - 4.00 k/uL 1.57 1.06 1.54 [place]% % 11.2 11.2 9.7 Abs [place] <0.87 k/uL 0.68 0.59 0.68 Eosin% % 1.8 2.1 1.7 Abs Eosin <0.46 k/uL 0.11 0.11 0.12 Baso% % 0.7 0.8 0.7 Abs Baso <0.11 k/uL 0.04 0.04 0.05 Immature Gran % % 0.3 0.4 0.3 IMMATURE GRANS (ABS) <0.10 k/uL <0.03 <0.03 <0.03 NRBC /100 WBC 0.0 0.0 0.0 Absolute nRBC <0.01 k/uL <0.01 <0.01 <0.01 DTYPE Auto Auto Auto Iron studies: Pending ASSESSMENT/PLAN: 1. 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 H/o Stage IIA left sided breast cancer. Received 3 cycles of TC. Completed 5 years' worth of AI/tamoxifen. 2. Iron deficiency anemia due to chronic blood loss - ICD9: 280.0, ICD10: D50.0 - No concerning findings on exam. - Reviewed CBC with pt. and daughter. - Iron studies pending. - Tolerated tamoxifen well. - Completed 5 years tamoxifen 2021. - Continue follow up with her specialists. - Needs port flushes monthly. - CBC/iron studies in 3 months. - Follow up in 6 months with CBC/iron studies. - Pt. aware to call office any questions/concerns. The patient indicates understanding of these issues and agrees with the plan. All documentation from previous visit of 08/27/22-Dr. Bonilla/myself was copied and pasted, documentation has been reviewed and edited as necessary for today's visit. Angelic Arreola APRN.CNP documented in this encounter [facility] 12-19-2022 Note HNO ID: [id number] Author: Sherice Persaud, DO Service: ? Author Type: Physician Type: Progress Notes Filed: 12/19/2022 2:17 PM Note Text: Christian Landrum is here today at request of Stella Casper PA-C specifically for consultation of my opinion in regards to the chief complaint listed below. Correspondence will be shared today via the [employer] electronic health record or through regular mail, where applicable. CHIEF COMPLAINT: Christian Landrum is a 87 year old female who presents today for new evaluation of right wrist pain. HISTORY OF PRESENT ILLNESS: PAIN EVALUATION 12/19/2022 1255 Pain Level: 5 Pain Location: Hand-Right Description: Aching Duration Amount of Time: 2 Duration Units: Months Frequency: Intermittent Intervention/Comfort measure: Declined I personally reviewed previous notes by the referring physician regarding this complaint. The patient notes that her right wrist swelling started many months prior with no obvious trauma. She has pain at the dorsal aspect of her wrist and base of her thumb. SOCIAL HISTORY: Tobacco Use: Never PHYSICAL EXAMINATION: Vitals: Ht 5' 6 (1.68m) Wt 170 lb (77.1kg) BMI 27.45 kg/(m2). Body Habitus:well nourished and no acute distress Orientation: Normal: Oriented to person, place and time Psych: normal Skin: Color, texture, turgor normal. No rashes or lesions MSK Specific Exam: RIGHT Hand/Wrist: Inspection: Soft tissue swelling located over the dorsal aspect of her hand just distal to her radiocarpal joint Tenderness: TTP at CMC joint, STT joint, radiocarpal joint Range of Motion: Finger: normal ROM of all joints of all fingers of both hands Wrist Flexion: decreased ROM secondary to pain Wrist Extension: normal ROM when compared to the contralateral side and decreased ROM secondary to pain Wrist Ulnar deviation: normal ROM when compared to the contralateral side Wrist Radial Deviation: normal ROM when compared to the contralateral side Muscle Strength: Wrist extension (C6): 4/5 Wrist flexion (C7): 4/5 Finger abduction: 5/5 Neurologic: Dorsal thumb (radial nerve): Normal sensation to light touch Index finger (median nerve): Normal sensation to light touch 5th finger (ulnar nerve): Normal sensation to light touch Last XR Wrist - Impression Only XR WRIST GENERAL 3V PA/LAT/OBL RIGHT Exam End: 11/25/2022 2:29 PM (Final result) Impression: IMPRESSION: No acute fracture or dislocation. Severe thumb CMC and triscaphe osteoarthritis. Subchondral cystic change throughout the proximal carpal row. 2 cm circumscribed focus of soft tissue swelling about the radial aspect of the wrist may represent a ganglion however can be better evaluated with cross-sectional imaging. ... CLINICAL IMPRESSION / ASSESSMENT: (M19.049) CMC arthritis (primary encounter diagnosis) (M25.531) Pain in right wrist RECOMMENDATION / PLAN: Injection performed as detailed below in PROCEDURE NOTE . Of note, the patient has a wrist soft tissue mass that has been present for many months. POCUS with heterogenous fluid with increased vascularity at the base of the structure. Mass-like structure surrounds her extensor tendons. Given this, we will proceed with MSK US for more definitive answers on the etiology of this mass. Follow up: Telephone for MSK US results, otherwise follow-up with consulting provider. Small Joint Arthro/Inj: R thumb CMC Informed Consent Consent Obtained: Written [place] Protocol A moment to CARE was completed. SIGN IN Personnel directly involved with the procedure wore the appropriate PPE. Patient/Surrogate Stated/Verified: Patient name, Date of , Relevant allergies and Intended procedure TIME OUT Intended patient and procedure match the source document(s). Consent documented and matches the intended procedure. Relevant labs, photos, and/or imaging studies have been reviewed. Correct side/site marked and visible. Medications required for procedure verified. 12/19/2022 2:17 PM The procedure site was prepped in the usual sterile fashion. Details:Musculoskeletal ultrasound was utilized to successfully localize placement of the injection needle at the appropriate site. Ultrasound images demonstrating local vasculature and demonstrating injection of solution were saved. Medications: 40 mg triamcinolone acetonide 40 mg/mL Anesthetics: 0.5 mL lidocaine (PF) 10 mg/mL (1 %) Outcome: tolerated well, no immediate complications Post-injection instructions were reviewed with the patient and the patient voiced understanding of these instructions. Sherice Persaud DO Sports Medicine Physician [facility] 12-19-2022 Miscellaneous Notes Faxed patient's last office visit note to facility, [facility], per . documented in this encounter [facility] 12-17-2022 Note HNO ID: [id number] Author: Vania Horan RN Service: ? Author Type: Registered Nurse Type: Progress Notes Filed: 12/17/2022 9:55 AM Note Text: Patient is here for IVAD port flush per [facility] protocol. IVAD is located in right upper chest. Site cleansed with Chloraprep IVAD accessed with a #20 gauge 3/4 non-coring Gripper needle Blood Return: Good Flushed with: 20 ml Normal Saline and 5 ml Heparin Lock Flush Non-coring needle removed. Paper tape applied to puncture site. Port site negative for redness, edema or tenderness. Patient tolerated procedure well. [facility] 12-17-2022 History of Present illness Narrative Patient is here for IVAD port flush per [facility] protocol. IVAD is located in right upper chest. Site cleansed with Chloraprep IVAD accessed with a #20 gauge 3/4 non-coring Gripper needle Blood Return: Good Flushed with: 20 ml Normal Saline and 5 ml Heparin Lock Flush Non-coring needle removed. Paper tape applied to puncture site. Port site negative for redness, edema or tenderness. Patient tolerated procedure well. documented in this encounter [facility] 12-13-2022 Note HNO ID: [id number] Author: Juliet Morgan APRN.CNP Service: ? Author Type: Nurse Practitioner Type: Progress Notes Filed: 12/13/2022 3:12 PM Note Text: [facility] Department of Cardiovascular Medicine SECTION OF CLINICAL CARDIOLOGY OUTPATIENT VISIT DATE December 13, 2022 OUTPATIENT VISIT TYPE ESTABLISHED PRIMARY CARE PHYSICIAN: Ariel Sainz [address] [place] [address] REFERRING PHYSICIAN: Jerrica Beltran [address] [facility] [address] CHIEF COMPLAINT: Follow Up (Christian denies cardiac concerns/Daughter, Eloisa, concerned about Lasix management/Requires written prescriptions) HISTORY OF PRESENT ILLNESS: Ms. Landrum is a 87 year old female with pmh of HTN, HLD, central sleep apnea/CPAP, PAF no AC due to bleeding, LEIA due to chronic blood loss who presents today for a cardiovascular medicine follow-up visit as patient of Dr Ibarra. Has not had leg edema for a while now. Will get some swelling if standing for long time, like at yarsanism but resolves quickly Has sleep apnea with new mask and now sleeps better. She overall feels better than she has in a long time. Does water therapy at her assisted living facility. [facility] She denies shortness of breath, chest pain, palpitations, dizziness, lightheadedness, lower extremity edema, PND, orthopnea, presyncope, syncope, or claudication symptoms. Subjective PAST MEDICAL HISTORY Diagnosis Date Abdominal pain, left lower quadrant long standing Arrhythmia Arthritis Asthma Atrial fibrillation (HCC) 2009 Atrophic vaginitis Benign neoplasm of colon C. 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, estrogen receptor positive (HCC) 06/03/2017 Mitral valve disorders(424.0) and irregular heartbeat on occasion stress related Mixed stress and urge urinary incontinence Osteoarthrosis, unspecified whether generalized or localized, other specified sites 07/22 vit D 41 Other diseases of pharynx, not elsewhere classified(478.29) Other extrapyramidal disease and abnormal movement disorder PMH - PAST MEDICAL HISTORY OF benign mass on liver PMR (polymyalgia rheumatica) (HCC) 2012 Pure hypercholesterolemia Snoring 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 Symptomatic menopausal or female climacteric states IN HER 50S 05/22 NORMAL BONE DENSITY Syncope Thyroid disease 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 Unspecified hemorrhoids without mention of complication Hemorrhoids Unspecified sleep apnea use CPAP SEVERAL YRS UTI (lower urinary tract infection) 2012 frequent PAST SURGICAL HISTORY Procedure Laterality Date ABDOMINAL SURGERY HX APPENDECTOMY 1982 ovarian cyst at same time-one ovary removed right APPENDECTOMY BIOPSY BREAST OPEN INCISIONAL left breast twice BREAST LEFT FINE NEEDLE ASPIRATION 1979' left breast BREAST SURGERY HX BX BREAST NEEDLE CORE W/O IMAGING GUIDANCE SPX 06/24/2007 left breast BX BREAST W/DEVICE 1ST LESION STEREOTACTIC GUID 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, DCIS, LCIS BX/EXC LYMPH NODE OPEN DEEP AXILLARY NODE Right COLECTOMY PART W/CECOSTOMY 08/08/2009 sigmoid colectomy COLON SURGERY HX COLONOSCOPY FLX DX W/COLLJ SPEC WHEN PFRMD 04/19/2003 Colonoscopy COLONOSCOPY FLX DX W/COLLJ SPEC WHEN PFRMD 11/03/2014 Colonoscopy COLONOSCOPY FLX DX W/COLLJ SPEC WHEN PFRMD 11/15/2019 Colonoscopy COLONOSCOPY FLX DX W/COLLJ SPEC WHEN PFRMD 01/09/2021 repeat in 6 months COLONOSCOPY W/BIOPSY SINGLE/MULTIPLE 03/23/2010 Clean anastamosis at 15cm few right and lef sided diverticula COLSC FLX W/REMOVAL LESION BY HOT BX FORCEPS 04/27/2007 tubular adenoma COLSC FLX W/REMOVAL LESION BY HOT BX FORCEPS 09/28/2008 small polyp in cecum and 40cm, diverticulosis ESOPHAGOGASTRODUODENOSCOPY TRANSORAL DIAGNOSTIC 01/09/2021 HYSTEROSCOPY BX ENDOMETRIUMAND/POLYPC W/WO DANDC 08/23/2021 DANDC for PMB INCISE FINGER TENDON SHEATH Right 06/28/2020 Right ring and little trigger finger releases INCISE FINGER TENDON SHEATH Left 09/28/2020 Left ring trigger finger release INSJ TUNNELED CTR VAD W/SUBQ PORT AGE 5 YR/> 10/06/2007 Right Subclavian MASTECTOMY, SIMPLE, COMPLETE 08/04/2007 left breast with SLND/ALND MASTECTOMY, SIMPLE, COMPLETE Right 08/28/ (more content not included)... [facility] 12-13-2022 Instructions Juliet Morgan APRN.MIMEOGRAPHER - 12/13/2022 2:50 PM EDT PLAN AND RECOMMENDATIONS: No change in medications Follow up Dr Ibarra in 6 months. CONTACT INFORMATION: Juliet Morgan APRN.CNP Cardiology Nurse Practitioner Section of [facility] Card[facility] Dept of Cardiovascular Medicine [facility] [address] [address] Office Office documented in this encounter [facility] 12-13-2022 History of Present illness Narrative Images from the original note were not included. [facility] Department of Cardiovascular Medicine SECTION OF CLINICAL CARDIOLOGY OUTPATIENT VISIT DATE December 13, 2022 OUTPATIENT VISIT TYPE ESTABLISHED PRIMARY CARE PHYSICIAN: Ariel Sainz [address] [place] [address] REFERRING PHYSICIAN: Jerrica Beltran [address] [place] [id number] CHIEF COMPLAINT: Follow Up ([place] denies cardiac concerns/Daughter, Eloisa, concerned about Lasix management/Requires written prescriptions) HISTORY OF PRESENT ILLNESS: Ms. Landrum is a 87 year old female with pmh of HTN, HLD, central sleep apnea/CPAP, PAF no AC due to bleeding, LEIA due to chronic blood loss who presents today for a cardiovascular medicine follow-up visit as patient of Dr Ibarra. Has not had leg edema for a while now. Will get some swelling if standing for long time, like at yarsanism but resolves quickly Has sleep apnea with new mask and now sleeps better. She overall feels better than she has in a long time. Does water therapy at her assisted living facility. [facility] She denies shortness of breath, chest pain, palpitations, dizziness, lightheadedness, lower extremity edema, PND, orthopnea, presyncope, syncope, or claudication symptoms. Subjective PAST MEDICAL HISTORY Diagnosis Date Abdominal pain, left lower quadrant long standing Arrhythmia Arthritis Asthma Atrial fibrillation (HCC) 2009 Atrophic vaginitis Benign neoplasm of colon C. 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, estrogen receptor positive (HCC) 06/03/2017 Mitral valve disorders(424.0) and irregular heartbeat on occasion stress related Mixed stress and urge urinary incontinence Osteoarthrosis, unspecified whether generalized or localized, other specified sites 07/22 vit D 41 Other diseases of pharynx, not elsewhere classified(478.29) Other extrapyramidal disease and abnormal movement disorder PMH - PAST MEDICAL HISTORY OF benign mass on liver PMR (polymyalgia rheumatica) (HCC) 2012 Pure hypercholesterolemia Snoring 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 Symptomatic menopausal or female climacteric states IN HER 50S 05/22 NORMAL BONE DENSITY Syncope Thyroid disease 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 Unspecified hemorrhoids without mention of complication Hemorrhoids Unspecified sleep apnea use CPAP SEVERAL YRS UTI (lower urinary tract infection) 2012 frequent PAST SURGICAL HISTORY Procedure Laterality Date ABDOMINAL SURGERY HX APPENDECTOMY 1982 ovarian cyst at same time-one ovary removed right APPENDECTOMY BIOPSY BREAST OPEN INCISIONAL left breast twice BREAST LEFT FINE NEEDLE ASPIRATION left breast BREAST SURGERY HX BX BREAST NEEDLE CORE W/O IMAGING GUIDANCE SPX 06/24/2007 left breast BX BREAST W/DEVICE 1ST LESION STEREOTACTIC GUID 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, DCIS, LCIS BX/EXC LYMPH NODE OPEN DEEP AXILLARY NODE Right COLECTOMY PART W/CECOSTOMY 08/08/2009 sigmoid colectomy COLON SURGERY HX COLONOSCOPY FLX DX W/COLLJ SPEC WHEN PFRMD 04/19/2003 Colonoscopy COLONOSCOPY FLX DX W/COLLJ SPEC WHEN PFRMD 11/03/2014 Colonoscopy COLONOSCOPY FLX DX W/COLLJ SPEC WHEN PFRMD 11/15/2019 Colonoscopy COLONOSCOPY FLX DX W/COLLJ SPEC WHEN PFRMD 01/09/2021 repeat in 6 months COLONOSCOPY W/BIOPSY SINGLE/MULTIPLE 03/23/2010 Clean anastamosis at 15cm few right and lef sided diverticula COLSC FLX W/REMOVAL LESION BY HOT BX FORCEPS 04/27/2007 tubular adenoma COLSC FLX W/REMOVAL LESION BY HOT BX FORCEPS 09/28/2008 small polyp in cecum and 40cm, diverticulosis ESOPHAGOGASTRODUODENOSCOPY TRANSORAL DIAGNOSTIC 01/09/2021 HYSTEROSCOPY BX ENDOMETRIUM&/POLYPC W/WO D&C 08/23/2021 D&C for PMB INCISE FINGER TENDON SHEATH Right 06/28/2020 Right ring and little trigger finger releases INCISE FINGER TENDON SHEATH Left 09/28/2020 Left ring trigger finger release INSJ TUNNELED CTR VAD W/SUBQ PORT AGE 5 YR/> 10/06/2007 Right Subclavian MASTECTOMY, SIMPLE, COMPLETE 08/04/2007 left breast with SLND/ALND MASTECTOMY, SIMPLE, COMPLETE Right 08/29/2015 right mastectomy with SLND PAST SURGICAL HISTORY OF bilat CTR, had endometrial bx 2004 PAST SURGICAL HISTORY OF 12/2011 removal of lesion of Lt eyelid PAST SURGICAL HISTORY OF 1982 Rt ovary removed PAST SURGICAL HISTORY OF 01/03/2017 breast surgery REMOVE TONSILS/ADENOIDS,<12 Y/O SALPINGO-OOPHORECTOMY COMPL/PRTL UNI/BI SPX 08/08/2009 left Salpingo-oophorectomy SHAVING SKIN LESION 1 S/N/H/F/G DIAM 0.6-1.0 CM 09/2017 squamous cell SKIN BIOPSY HX TONSILLECTOMY HX TONSILLECTOMY PRIMARY/SECONDARY <AGE 12 1945 Tonsillectomy Social History Tobacco Use Smoking status: Never Smokeless tobacco: Never Vaping Use Vaping Use: Never used Substance Use Topics Alcohol use: No Drug use: No FAMILY HISTORY Problem Relation Age of Onset other ( age 59 [place]) Mother hypertension and TB other (pancreatic cancer) Father Breast Cancer Sister diagnosed at age 53 Breast Cancer Maternal Aunt diagnosed postmenopausal Breast Cancer Other 2 maternal first cousins Breast Cancer Other maternal cousins Breast Cancer Other maternal great grandmother other (sinus cavity CA) Son other (myeloma) Brother other (healthy) Sister other (ovarian cancer) Sister paternal grandmother ALLERGIES: ALLERGIES Allergen Reactions Clindamycin Other: See Comments, Contraindication-Medical Surgical Should not be prescribed due to past history of c diff Keflex [Cephalexin] Other: See Comments, Contraindication-Medical Surgical Patient states this caused C diff Naprosyn [Naproxen] Other: See Comments bleeding [place]mond Inhibitors Cough Adhesives [Other] Other: See Comments Local skin reaction with skin tears Arthrotec 50 [Diclo* Diarrhea Blephamide [Sulface* Cough Ditropan [Oxybutyni* Other: See Comments Severe dryness of nasal passages, bleeding from the nose, constipation and sneezing Flagyl [Metronidazo* Mental Status Change, Shortness of Breath Anxiety Flexeril [Cyclobenz* Contraindication-Medical Surgical urinary urgency Hctz [Hydrochloroth* Mental Status Change felt strange Naproxen Sodium Contraindication-Medical Surgical GI Bleeding Paxil [Paroxetine] Contraindication-Medical Surgical urinary urgency Sulfa (Sulfonamide * Unknown Zestril [Lisinopril] MEDICATIONS: modafinil (PROVIGIL) 100 mg tablet TAKE 1/2 to 1 TABLET BY MOUTH EVERY DAY as needed for hypersomnia predniSONE (DELTASONE) 5 mg tablet Take 5 mg by mouth once daily. PRN Methenamine Hippurate (HIPREX) 1 gram tablet Take 1 tablet by mouth twice daily with meals. traMADol (ULTRAM) 50 mg tablet Take 50 mg by mouth every 6 hours as needed for pain. furosemide (LASIX) 20 mg tablet Take 1 tablet by mouth every other day. senna/docusate sodium (SENNA-C PLUS ORAL) Take 8.6 mg by mouth once daily. Acetaminophen 500 mg cap Take 1,000 mg by mouth as needed. guaiFENesin (ROBITUSSIN) 100 mg/5 mL syrup Take 200 mg by mouth every 4 hours as needed. FERROUS GLUCONATE ORAL Take 324 mg by mouth once daily. metoprolol succinate ER (TOPROL XL) 25 mg 24 hr tablet Take 1 tablet by mouth once daily. fwbbzsk-sgumtuzns-snqlgve D3 500 mg-5 mcg (200 unit) per tablet Take 1 tablet by mouth once daily. omeprazole (PRILOSEC) 40 mg capsule Take 1 capsule by mouth once daily. fluticasone (FLONASE) 50 mcg/actuation nasal spray Use 2 Sprays in each nostril once daily. levothyroxine (LEVOXYL) 25 mcg tablet Take 1 tablet by mouth once daily. Take on empty stomach. For Thyroid escitalopram oxalate (LEXAPRO) 10 mg tablet Take 1 tablet by mouth once daily. gabapentin (NEURONTIN) 600 mg tablet Take 0.5 tablets by mouth once daily. (Patient taking differently: Take 300 mg by mouth daily at bedtime.) cetirizine (ZYRTEC) 10 mg tablet Take 1 tablet by mouth once daily. MULTIVITAMIN TAB Take 1 tablet by mouth once daily. REVIEW OF SYSTEMS: CARD: See HPI GENERAL: Negative for: Weight loss or gain, Fever and/or Chills HEENT: Negative for: Headache, Impaired Vision, Glasses, Hearing Impairment, Ringing in Ears, Nosebleeds, Bleeding Gums NECK: Negative for: Swelling, Pain, Stiffness RESPIRATORY: Negative for: Cough, Blood in Sputum, Shortness of breath, Wheezing, Apnea GASTROINTESTINAL: Negative for: Nausea, Vomiting, Diarrhea, Blood in stool, or Dark black stools MUSCULOSKELETAL: Negative for: Muscle or joint pain, Stiffness , Joint swelling NEUROLOGIC: Negative for: focal numbness/weakness, headaches, visual changes, ataxia, speech/language loss SKIN: Negative for: Rashes, Itching HEMATOLOGICAL/LYMPHATIC: Negative for: Easy bruising , Easy bleeding ENDOCRINE: Negative for: Heat or cold intolerance, Excessive sweating, Frequent urination, Frequent thirst Objective PHYSICAL EXAMINATION: BP 130/60 Pulse 68 Ht 167.6 cm (5' 6 ) Wt 79.4 kg (175 lb) SpO2 97% BMI 28.25 kg/m General: Well appearing, in no acute distress. Skin: No clubbing, no cyanosis. Eyes: Extra ocular movements intact Oropharynx: Teeth in good repair. Neck: No jugular venous distention, no carotid bruits, carotids have a normal upstroke. Lungs: Clear to auscultation bilaterally, no wheezing or rhonchi. Heart: Regular rhythm, S1, S2 normal, no S3, no S4, no heaves, no rub and no murmur. No peripheral edema . Grade 2/4 distal pulses bilaterally. Abdomen: Soft, nontender, bowel sounds normal, no bruits. Neuro: Oriented to person, place and time, alert, cooperative, gait coordinated. CARDIOVASCULAR MEDICINE TESTING: No Cardiovascular testing perfomed today. Last EKG Result Conclusion ECG COMPLETE Collected: 09/05/2022 9:16 AM (Final result) Impression: NORMAL SINUS RHYTHM Confirmed by OBDULIA BERMEO DO ([id number]) on 10/08/2022 3:19:16 PM There were no tests performed for review. I personally interviewed, confirmed and edited the above information if obtained by others. Conclusion: (I10) Essential hypertension (primary encounter diagnosis) Comment: stable Plan: only on metoprolol; no change. (I48.0) Paroxysmal atrial fibrillation (HCC) Comment: appears to be in sinus rhythm today. She feels well. Plan: no AC due to bleeding issues. PLAN AND RECOMMENDATIONS: No change in medications Follow up Dr Ibarra in 6 months. CONTACT INFORMATION: Juliet Morgan APRN.INGE Cardiology Nurse Practitioner Section of [facility] Cardiology [facility] Dept of Cardiovascular Medicine [facility] [place] [address] Office Office documented in this encounter [facility] 11-26-2022 Miscellaneous Notes Sending message to provider to review chart and advise. Per Dr. Persaud, OK to place on her schedule. Spoke with patient; scheduled for 12/19 at 1:00 PM. Pt VU and is agreeable with date/time. Patient is wanting to schedule an injection. Please advise- Thanks Order entered for US guided injection right CMC joint, can we assist patient with scheduling, contact is Eloisa Moser. Order entered for US guided injection right CMC joint, can we assist patient with scheduling, contact is Eloisa Moser. documented in this encounter [facility] 11-25-2022 Note HNO ID: [id number] Author: Page Ruiz RT(R) Service: ? Author Type: Technologist Type: Progress Notes Filed: 11/25/2022 2:31 PM Note Text: Radiology Service Progress Note PATIENT NAME: Christian Landrum DATE OF SERVICE: November 25, 2022 TIME: 2:30 PM PATIENT IDENTITY VERIFICATION COMPLETED USING TWO (2) IDENTIFIERS: Name and Date of confirmed by patient verbally. FALL SCREENING: Has the patient had 2 falls in the last year or 1 fall with injury or currently using an Ambulatory Assistive Device (Walker, Cane, Wheelchair, Crutches, etc.)? Yes, Patient High Risk for Falls What interventions were put in place to prevent falls during this visit? Increased Observations by Caregivers PATIENT GENDER DATA: Female. status: : No status: NO. PATIENT RELEVANT IMPLANT DATA REVIEWED: Not Applicable RADIOLOGY DEPARTMENT: General X-ray: Exam(s) Completed: Upper Extremity X-Ray(s): Wrist, right PERIPHERAL IV DATA: Not applicable SIGNED BY: RT Nithin(R) November 25, 2022 2:30 PM [facility] 11-25-2022 Note HNO ID: [id number] Author: Stella Casper PA-C Service: ? Author Type: Physician Specialty Transformer Assembler Type: Progress Notes Filed: 11/26/2022 9:20 AM Note Text: Large Joint Arthro/Inj: bilateral knee joints Informed Consent Consent Obtained: Verbal [place] Protocol A moment to CARE was completed. SIGN IN Sign in communication not applicable due to emergent procedure. Personnel directly involved with the procedure wore the appropriate PPE. Special Equipment: N/A Patient/Surrogate Stated/Verified: Patient name, Date of , Relevant allergies and Intended procedure TIME OUT Intended patient and procedure match the source document(s). Consent documented and matches the intended procedure. Relevant labs, photos, and/or imaging studies have been reviewed. Correct side/site marked and visible. Medications required for procedure verified. No fire risk assessment and interventions applicable. No implant(s) inserted. 11/25/2022 2:06 PM The procedure site was prepped in the usual sterile fashion. Site: bilateral knee joints Medications (Right): 6 mg betamethasone acetate-betamethasone sodium phosphate 6 mg/mL Medications (Left): 6 mg betamethasone acetate-betamethasone sodium phosphate 6 mg/mL Anesthetics (Right): 5 mL lidocaine (PF) 10 mg/mL (1 %) Anesthetics (Left): 5 mL lidocaine (PF) 10 mg/mL (1 %) Outcome: Tolerated well, no immediate complications Post-injection instructions were reviewed with the patient and the patient voiced understanding of these instructions. SIGN OUT No instruments, equipment or retained foreign bodies applicable. [facility] 11-25-2022 Note HNO ID: [id number] Author: Fozia Bedolla RN Service: ? Author Type: Registered Nurse Type: Progress Notes Filed: 11/26/2022 9:20 AM Note Text: Patient presents with: Left Knee - Established Patient Right Knee - Established Patient: 6 months post visit OA bilateral knees with injection given. Wants injection today. Patient states injections helped bilateral knee pain before. Would like an injection again. Pain gets worse with weather. Patient is unable to take medication for RA due to liver issues. Patient uses walker to ambulate. AMB ROOMING INTAKE FLOWSHEET DATA Pain Pain Level: 4 (Weather makes pain worse. 11/24.) Pain Location: (Bilateral knees) Description: Aching, Burning, Dull, Sharp Duration Amount of Time: (Ongoing) [facility] 11-25-2022 Instructions Stella Casper PA-C - 11/25/2022 3:27 PM EDT Patient presents today for repeat bilateral knee corticosteroid injections, previous injections were beneficial for several months. We will proceed with repeat injections. Patient can follow-up every 91 days as needed for additional injections. No restrictions or limitations from a knee standpoint, can continue activities and to ambulate with Rolator as she feels comfortable doing so. documented in this encounter [facility] 11-25-2022 History of Present illness Narrative Radiology Service Progress Note PATIENT NAME: Christian Landrum DATE OF SERVICE: November 25, 2022 TIME: 2:30 PM PATIENT IDENTITY VERIFICATION COMPLETED USING TWO (2) IDENTIFIERS: Name and Date of confirmed by patient verbally. FALL SCREENING: Has the patient had 2 falls in the last year or 1 fall with injury or currently using an Ambulatory Assistive Device (Walker, Cane, Wheelchair, Crutches, etc.)? Yes, Patient High Risk for Falls What interventions were put in place to prevent falls during this visit? Increased Observations by Caregivers PATIENT GENDER DATA: Female. status: : No status: NO. PATIENT RELEVANT IMPLANT DATA REVIEWED: Not Applicable RADIOLOGY DEPARTMENT: General X-ray: Exam(s) Completed: Upper Extremity X-Ray(s): Wrist, right PERIPHERAL IV DATA: Not applicable SIGNED BY: RT Nithin(R) November 25, 2022 2:30 PM documented in this encounter [facility] 11-25-2022 History of Present illness Narrative Associated Order(s): Large Joint Arthro/Inj: bilateral knee joints Post-Procedure Diagnose(s): Primary osteoarthritis of both knees Large Joint Arthro/Inj: bilateral knee joints Informed Consent Consent Obtained: Verbal [place] Protocol A moment to CARE was completed. SIGN IN Sign in communication not applicable due to emergent procedure. Personnel directly involved with the procedure wore the appropriate PPE. Special Equipment: N/A Patient/Surrogate Stated/Verified: Patient name, Date of , Relevant allergies and Intended procedure TIME OUT Intended patient and procedure match the source document(s). Consent documented and matches the intended procedure. Relevant labs, photos, and/or imaging studies have been reviewed. Correct side/site marked and visible. Medications required for procedure verified. No fire risk assessment and interventions applicable. No implant(s) inserted. 11/25/2022 2:06 PM The procedure site was prepped in the usual sterile fashion. Site: bilateral knee joints Medications (Right): 6 mg betamethasone acetate-betamethasone sodium phosphate 6 mg/mL Medications (Left): 6 mg betamethasone acetate-betamethasone sodium phosphate 6 mg/mL Anesthetics (Right): 5 mL lidocaine (PF) 10 mg/mL (1 %) Anesthetics (Left): 5 mL lidocaine (PF) 10 mg/mL (1 %) Outcome: Tolerated well, no immediate complications Post-injection instructions were reviewed with the patient and the patient voiced understanding of these instructions. SIGN OUT No instruments, equipment or retained foreign bodies applicable. Patient presents with: Left Knee - Established Patient Right Knee - Established Patient: 6 months post visit OA bilateral knees with injection given. Wants injection today. Patient states injections helped bilateral knee pain before. Would like an injection again. Pain gets worse with weather. Patient is unable to take medication for RA due to liver issues. Patient uses walker to ambulate. AMB ROOMING INTAKE FLOWSHEET DATA Pain Pain Level: 4 (Weather makes pain worse. /10.) Pain Location: (Bilateral knees) Description: Aching, Burning, Dull, Sharp Duration Amount of Time: (Ongoing) documented in this encounter [facility] 11-14-2022 Miscellaneous Notes Left VM on patient's home and mobile lines cancelling the patient's 12/11/22 cardiology appointment. Instructed the patient to call the office to reschedule. My Chart message sent. documented in this encounter [facility] 11-11-2022 Note HNO ID: [id number] Author: Michelle Llanos MA Service: ? 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 She advises that patient is at [facility] in [place] and is under the care of the physicians on site. She is no longer seeing Dr Sainz for her care. She does not need to establish patient with new PCP at [facility] as Dr Sainz is no longer seeing patients, thank you Patient Identified by Name and : YES, via phone Outreach Outcome/Action Spoke to patient / parent / legal guardian: PCP confirmed / updated Did you use a PCP flex slot to schedule this appointment? N/A Reason for Outreach HCC or suspected condition Payer: Payor: MEDICARE / Plan: MEDICARE A AND B / Product Type: Medicare / Care Gap Reviewed:: N/A Reminder: Reminder note to check Health Maintenance for items below Health Maintenance items due: HEPATITIS A(1 of 2 - Risk 2-dose series) Never done HEPATITIS B(1 of 3 - Risk 3-dose series) Never done SHINGRIX VACCINE(2 of 3) due on 08/02/2011 COVID-19 VACCINE(4 - Moderna series) due on 01/17/2021 COLONOSCOPY due on 01/09/2022 ADVANCE DIRECTIVE DISCUSSION Never done DTAP,TDAP,TD(2 - Td or Tdap) due on 11/17/2022 Navigation Signature: Michelle Llanos MA November 11, 2022 4:42 PM [facility] 11-11-2022 Note Patient Outreach (NE TNAV) ---- CHRISTIAN LANDRUM ([id number]) 1935 F Date Time Provider Department 11/11/22 MICHELLE LLANOS During your visit today, we recorded the following information about you: Michelle Llanos MA 11/11/2022 4:46 PM Signed POPULATION HEALTH NAVIGATION OUTREACH Action/I November 11, 2022 4:42 PM HCC Gaps K74.60 - Cirrhosis of liver with ascites (HCC) - [id number] Last Billed 08/08/2021 M05.769 - 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 She advises that patient is at [facility] in [place] and is under the care of the physicians on site. She is no longer seeing Dr Sainz for her care. She does not need to establish patient with new PCP at [facility] as Dr Sainz is no longer seeing patients, thank you Patient Identified by Name and : YES, via phone Outreach Outcome/Action Spoke to patient / parent / legal guardian: PCP confirmed / updated Did you use a PCP flex slot to schedule this appointment? N/A Reason for Outreach HCC or suspected condition Payer: Payor: MEDICARE / Plan: MEDICARE A AND B / Product Type: Medicare / Care Gap Reviewed:: N/A Reminder: Reminder note to check Health Maintenance for items below Health Maintenance items due: HEPATITIS A(1 of 2 - Risk 2-dose series) Never done HEPATITIS B(1 of 3 - Risk 3-dose series) Never done SHINGRIX VACCINE(2 of 3) due on 08/02/2011 COVID-19 VACCINE(4 - Moderna series) due on 01/17/2021 COLONOSCOPY due on 01/09/2022 ADVANCE DIRECTIVE DISCUSSION Never done DTAP,TDAP,TD(2 - Td or Tdap) due on 11/17/2022 Navigation Signature: Michelle Llanos MA November 11, 2022 4:42 PM Allergies As of Date: 11/11/2022 Noted Allergy Reaction CLINDAMYCIN 03/05/2016 14 - Other: See Comments 15 - Contraindication-[facility]* Comments: Should not be prescribed due to past history of c diff KEFLEX (CEPHALEXIN) 01/06/2019 14 - Other: See Comments 15 - Contraindication[facility]* Comments: Patient states this caused C diff NAPROSYN (NAPROXEN) 02/12/2010 14 - Other: See Comments Comments: bleeding DESMOND INHIBITORS 05/17/2004 3 - Cough adhesives [Other] 10/14/2007 14 - Other: See Comments Comments: Local skin reaction with skin tears ARTHROTEC 50 (DICLOFENAC-MISOPROS*06/24/2007 6 - Diarrhea BLEPHAMIDE (SULFACETAMIDE-PREDNIS*05/18/2010 3 - Cough DITROPAN (OXYBUTYNIN) 06/20/2020 14 - Other: See Comments Comments: Severe dryness of nasal passages, bleeding from the nose, constipation and sneezing FLAGYL (METRONIDAZOLE HCL) 02/17/2010 1 - Mental Status Change 12 - Shortness of Breath Comments: Anxiety FLEXERIL (CYCLOBENZAPRINE) 05/17/2004 15 - Contraindication-[facility]* Comments: urinary urgency HCTZ (HYDROCHLOROTHIAZIDE) 10/07/2005 1 - Mental Status Change Comments: felt strange NAPROXEN SODIUM 02/12/2010 15 - Contraindication-[facility]* Comments: GI Bleeding PAXIL (PAROXETINE) 05/17/2004 15 - Contraindication-[facility]* Comments: urinary urgency SULFA (SULFONAMIDE ANTIBIOTICS) 12/26/2015 16 - Unknown ZESTRIL (LISINOPRIL) 07/08/2007 Date Reviewed: 09/05/2022 Reviewed by: Billy Arce LPN - Fully Assessed Reason for Visit: Population Health Navigation Outreach [3910] Cmt: O [facility] Prescriptions as of 11/11/2022 - predniSONE (DELTASONE) 5 mg tablet Take 5 mg by mouth once daily. PRN - apixaban (ELIQUIS) 5 mg tab(s) Take 1 tablet by mouth twice daily. - Methenamine Hippurate (HIPREX) 1 gram tablet Take 1 tablet by mouth twice daily with meals. - traMADol (ULTRAM) 50 mg tablet Take 50 mg by mouth every 6 hours as needed for pain. - furosemide (LASIX) 20 mg tablet Take 1 tablet by mouth every other day. - senna/docusate sodium (SENNA-C PLUS ORAL) Take 8.6 mg by mouth once daily. - Acetaminophen 500 mg cap Take 1,000 mg by mouth as needed. - guaiFENesin (ROBITUSSIN) 100 mg/5 mL syrup Take 200 mg by mouth every 4 hours as needed. - FERROUS GLUCONATE ORAL Take 324 mg by mouth once daily. - metoprolol succinate ER (TOPROL XL) 25 mg 24 hr tablet Take 1 tablet by mouth once daily. - zzivgcj-gnrhntkji-wtipdps D3 500 mg-5 mcg (200 unit) per tablet Take 1 tablet by mouth once daily. - omeprazole (PRILOSEC) 40 mg capsule Take 1 capsule by mouth once daily. - fluticasone (FLONASE) 50 mcg/actuation nasal spray Use 2 Sprays in each nostril once daily. - levothyroxine (LEVOXYL) 25 mcg tablet Take 1 tablet by mouth once daily. Take on empty stomach. For Thyroid - escitalopram oxalate (LEXAPRO) 10 mg tablet Take 1 tablet by mouth once daily. - gabapentin (NEURONTIN) 600 mg tablet Take 0.5 tablets by mouth once daily. - ceti (more content not included)... [facility] 09-24-2022 Note HNO ID: [id number] Author: Andria Joyner RN Service: ? Author Type: Registered Nurse Type: Progress Notes Filed: 09/24/2022 2:41 PM Note Text: Patient is here for IVAD port flush per [facility] protocol. IVAD is located in right upper chest. Site cleansed with Chloraprep IVAD accessed with a #20 gauge 3/4 non-coring Gripper needle Blood Return: Good Flushed with: 20 ml Normal Saline and 5 ml Heparin Lock Flush Non-coring needle removed. Paper tape applied to puncture site. Port site negative for redness, edema or tenderness. Patient tolerated procedure well. Andria Joyner RN [facility] 09-24-2022 History of Present illness Narrative Patient is here for IVAD port flush per [facility] protocol. IVAD is located in right upper chest. Site cleansed with Chloraprep IVAD accessed with a #20 gauge 3/4 non-coring Gripper needle Blood Return: Good Flushed with: 20 ml Normal Saline and 5 ml Heparin Lock Flush Non-coring needle removed. Paper tape applied to puncture site. Port site negative for redness, edema or tenderness. Patient tolerated procedure well. Andria Joyner RN documented in this encounter [facility] 09-20-2022 Miscellaneous Notes Reviewed labs with Dr. Ibarra. Recommended pt to hold Eliquis. Would like pt to see Dr. Shields to discuss Watchmen Device. Reviewed recommendations to KASANDRA [facility]ulton Nurse Milagros at [facility]. Eloisa stated she will review Watchman recommendations to pt. Will contact us if she decided to pursue. Jie from [facility] ([phone]) in reg to Ms Tristin Landrum. CBC drawn today per Dr. Jose morales (2 week post starting Eliquis). Scan on 09/20/2022 8:25 AM by Yolanda Ashford: Miscellaneous Lab Pt has now refused Eliquis x4 days d/t black stools and +Hemoccult. Next CBC due 09/14/22. Inquiring if we have any additional orders/recommendations. TASHIA 09/05/22 w/ Dr. Ibarra: Paroxysmal atrial fibrillation - Stable and remains in sinus rhythm today - No atrial fibrillation noted despite multiple hospital admissions with fever - Historically was on Warfarin but this was stopped in February 2022 for GI bleed. Patient is high thromboembolic risk and aware of this off anticoagulation. [id number] score 4 or approximately 7% annual stroke risk and has-bled score is 2 or 4% bleeding risk - Currently on metoprolol - patient and daughter wish to trial DOAC now Iron deficiency anemia Doing well with iron infusions with stable Hgb documented in this encounter [facility] 09-05-2022 Note HNO ID: [id number] Author: Cecilio Ibarra, DO Service: ? Author Type: Physician Type: Progress Notes Filed: 09/05/2022 10:07 AM Note Text: [facility] Department of Cardiovascular Medicine SECTION OF CLINICAL CARDIOLOGY OUTPATIENT VISIT DATE April 09, 2022 OUTPATIENT VISIT TYPE ESTABLISHED Patient Name: Christian Landrum : 1935 PRIMARY CARE PHYSICIAN: Ariel Sainz MD [facility] 09/05/21 CHIEF COMPLAINT: No chief complaint on file. Ms. Landrum is an 87 y/o female who comes for a follow up visit. She has a h/o of PAF on Warfarin, rheumatic MV regurgitation, HTN, HLD, STUART, breast Ca, PMR and OA. Patient came to the OV with her daughter. She has been doing well since last visit denies any chest discomfort. She did have COVID 1-1/2 months ago and was a little bit off balance with that however has been doing better. She has not had any recent falls or evidence of bleeding. She has received iron infusions and her hemoglobin is stable. She denied any dizziness, lightheadedness, nausea or diaphoresis. She reports good fluid intake as well as adequate nutrition at home. She has not been taking her warfarin and is aware of the risk of potential stroke. She has been off warfarin for about 2 months due to issues with bleeding and positive occult stools. She does not take a diuretic at home. She reports compliance with all of her other medications. IMPRESSION/PLAN: Paroxysmal atrial fibrillation - Stable and remains in sinus rhythm today - No atrial fibrillation noted despite multiple hospital admissions with fever - Historically was on Warfarin but this was stopped in February 2022 for GI bleed. Patient is high thromboembolic risk and aware of this off anticoagulation. [id number] score 4 or approximately 7% annual stroke risk and has-bled score is 2 or 4% bleeding risk - Currently on metoprolol - patient and daughter wish to trial DOAC now Rheumatic mitral regurgitation - Echo 08/2020: trace-1+ MR - Stable, continue to monitor clinically and with periodic echocardiogram - She wants to hold off echocardiogram at this time Essential hypertension - Good control on metoprolol - Encouraged dietary sodium restriction/DASH diet - Recommended regular aerobic exercise. - Goal of BP <130/80 Mixed hyperlipidemia - LDL ok with TG elevated STUART (obstructive sleep apnea) - Compliant on BIPAP Shortness of breath - multifactorial in the setting of anemia, deconditioning - at baseline - low Na diet - continue lasix - increase activity as able Iron deficiency anemia Doing well with iron infusions with stable Hgb We had a long discussion with she and her daughter regard risk of stroke with AF vs risk of bleeding with anticoagulation. After a long discussion reviewing the risk and benfits in great detail the patient and her daughter wish to trial anticoagulation again but with DOAC this time and will start apixaban with checking a CBC and follow up in 2 weeks of starting. Her anemia appears to be stable with iron infusions and she has had not evidence of bleeding. Thank you for allowing me the privilege of participating in the care of your patient. Please do not hesitate to contact me if there are any questions. Cecilio Ibarra, DO, FACC, FCCP, FACOI CARDIAC STUDIES: LV Ejection Fraction (%) Date Value 09/07/2020 65 08/03/2019 62 02/22/2014 63 06/20/2011 60 Last EKG Result Conclusion ECG COMPLETE Collected: 09/05/2021 12:13 PM (Preliminary result) Impression: NORMAL SINUS RHYTHM NONSPECIFIC T WAVE ABNORMALITY PROLONGED QT INTERVAL OR TU FUSION, CONSIDER HYPOKALEMIA ABNORMAL ECG LABS: Sodium (mmol/L) Date Value 03/14/2022 137 08/13/2021 142 03/27/2021 139 02/27/2021 136 Potassium (mmol/L) Date Value 03/14/2022 3.9 08/13/2021 4.0 03/27/2021 3.9 02/27/2021 3.8 BUN (mg/dL) Date Value 03/14/2022 14 08/13/2021 11 08/12/2021 13 2021 19 03/27/2021 9 02/27/2021 10 02/09/2021 10 01/14/2021 10 Creatinine (mg/dL) Date Value 03/14/2022 0.63 08/13/2021 0.74 08/12/2021 0.78 2021 0.71 03/27/2021 0.61 02/27/2021 0.69 02/09/2021 0.69 01/14/2021 0.85 Magnesium (mg/dL) Date Value 08/13/2021 2.1 07/06/2021 2.0 01/14/2021 2.0 01/12/2021 2.0 Hemoglobin (g/dL) Date Value 08/09/2022 11.9 04/17/2022 11.3 04/11/2021 11.8 03/27/2021 11.1 No results found for: PROBNP No results found for: HSTNT Cholesterol, Total (mg/dL) Date Value 02/01/2020 102 HDL Cholesterol (mg/dL) Date Value 02/01/2020 32 Triglyceride (mg/dL) Date Value 02/01/2020 187 LDL Cholesterol (mg/dL) Date Value 02/01/2020 33 TSH (uU/mL) Date Value 04/11/2021 3.020 PT INR (no units) Date Value 10/16/2021 2.1 (biotel) INR (no units) Date Value 10/16/2021 1.9 BP 124/64 Pulse 69 Ht 167.6 cm (5' 6 ) Wt 78 (more content not included)... [facility] 09-05-2022 History of Present illness Narrative Images from the original note were not included. [facility] Department of Cardiovascular Medicine SECTION OF CLINICAL CARDIOLOGY OUTPATIENT VISIT DATE April 09, 2022 OUTPATIENT VISIT TYPE ESTABLISHED Patient Name: Christian Landrum : 1935 PRIMARY CARE PHYSICIAN: Ariel Sainz MD [facility] 09/05/21 CHIEF COMPLAINT: No chief complaint on file. Ms. Landrum is an 87 y/o female who comes for a follow up visit. She has a h/o of PAF on Warfarin, rheumatic MV regurgitation, HTN, HLD, STUART, breast Ca, PMR and OA. Patient came to the OV with her daughter. She has been doing well since last visit denies any chest discomfort. She did have COVID 1-1/2 months ago and was a little bit off balance with that however has been doing better. She has not had any recent falls or evidence of bleeding. She has received iron infusions and her hemoglobin is stable. She denied any dizziness, lightheadedness, nausea or diaphoresis. She reports good fluid intake as well as adequate nutrition at home. She has not been taking her warfarin and is aware of the risk of potential stroke. She has been off warfarin for about 2 months due to issues with bleeding and positive occult stools. She does not take a diuretic at home. She reports compliance with all of her other medications. IMPRESSION/PLAN: Paroxysmal atrial fibrillation - Stable and remains in sinus rhythm today - No atrial fibrillation noted despite multiple hospital admissions with fever - Historically was on Warfarin but this was stopped in February 2022 for GI bleed. Patient is high thromboembolic risk and aware of this off anticoagulation. [id number] score 4 or approximately 7% annual stroke risk and has-bled score is 2 or 4% bleeding risk - Currently on metoprolol - patient and daughter wish to trial DOAC now Rheumatic mitral regurgitation - Echo 08/2020: trace-1+ MR - Stable, continue to monitor clinically and with periodic echocardiogram - She wants to hold off echocardiogram at this time Essential hypertension - Good control on metoprolol - Encouraged dietary sodium restriction/DASH diet - Recommended regular aerobic exercise. - Goal of BP <130/80 Mixed hyperlipidemia - LDL ok with TG elevated STUART (obstructive sleep apnea) - Compliant on BIPAP Shortness of breath - multifactorial in the setting of anemia, deconditioning - at baseline - low Na diet - continue lasix - increase activity as able Iron deficiency anemia Doing well with iron infusions with stable Hgb We had a long discussion with she and her daughter regard risk of stroke with AF vs risk of bleeding with anticoagulation. After a long discussion reviewing the risk and benfits in great detail the patient and her daughter wish to trial anticoagulation again but with DOAC this time and will start apixaban with checking a CBC and follow up in 2 weeks of starting. Her anemia appears to be stable with iron infusions and she has had not evidence of bleeding. Thank you for allowing me the privilege of participating in the care of your patient. Please do not hesitate to contact me if there are any questions. Cecilio Ibarra, DO, FACC, FCCP, FACOI CARDIAC STUDIES: LV Ejection Fraction (%) Date Value 09/07/2020 65 08/03/2019 62 02/22/2014 63 06/20/2011 60 Last EKG Result Conclusion ECG COMPLETE Collected: 09/05/2021 12:13 PM (Preliminary result) Impression: NORMAL SINUS RHYTHM NONSPECIFIC T WAVE ABNORMALITY PROLONGED QT INTERVAL OR TU FUSION, CONSIDER HYPOKALEMIA ABNORMAL ECG LABS: Sodium (mmol/L) Date Value 03/14/2022 137 08/13/2021 142 03/27/2021 139 02/27/2021 136 Potassium (mmol/L) Date Value 03/14/2022 3.9 08/13/2021 4.0 03/27/2021 3.9 02/27/2021 3.8 BUN (mg/dL) Date Value 03/14/2022 14 08/13/2021 11 08/12/2021 13 2021 19 03/27/2021 9 02/27/2021 10 02/09/2021 10 01/14/2021 10 Creatinine (mg/dL) Date Value 03/14/2022 0.63 08/13/2021 0.74 08/12/2021 0.78 2021 0.71 03/27/2021 0.61 02/27/2021 0.69 02/09/2021 0.69 01/14/2021 0.85 Magnesium (mg/dL) Date Value 08/13/2021 2.1 07/06/2021 2.0 01/14/2021 2.0 01/12/2021 2.0 Hemoglobin (g/dL) Date Value 08/09/2022 11.9 04/17/2022 11.3 04/11/2021 11.8 03/27/2021 11.1 No results found for: PROBNP No results found for: HSTNT Cholesterol, Total (mg/dL) Date Value 02/01/2020 102 HDL Cholesterol (mg/dL) Date Value 02/01/2020 32 Triglyceride (mg/dL) Date Value 02/01/2020 187 LDL Cholesterol (mg/dL) Date Value 02/01/2020 33 TSH (uU/mL) Date Value 04/11/2021 3.020 PT INR (no units) Date Value 10/16/2021 2.1 (biotel) INR (no units) Date Value 10/16/2021 1.9 BP 124/64 Pulse 69 Ht 167.6 cm (5' 6 ) Wt 78 kg (172 lb) BMI 27.76 kg/m PHYSICAL EXAMINATION: Vitals: There were no vitals taken for this visit. Neck: No jugular venous distention, no carotid bruits, carotids have a normal upstroke, no palpable thyromegaly. Lungs: Clear to auscultation bilaterally, no wheezing or rhonchi. Heart: Regular rhythm, PMI not displaced, S1, S2 normal, no S3, no S4, no heaves, no rub and no murmur. Abdomen: Soft, nontender, bowel sounds normal, no palpable organomegaly, no bruits. Extremities: No peripheral edema . Grade 2/4 distal pulses bilaterally. Neuro: Oriented to person, place and time, alert, cooperative, gait coordinated. REVIEW OF SYSTEMS: GENERAL: Negative for: Weight loss or gain, Fever or Chills, Weakness and Sleep difficulties. HEENT: Negative for: Headache, Impaired Vision, Glasses, Hearing Impairment, Ringing in Ears, Nosebleeds, Poor dental care, Bleeding Gums, Dentures NECK: Negative for: Swelling, Pain, Stiffness RESPIRATORY: Negative for: Cough, Blood in Sputum, Shortness of breath, Wheezing, Apnea GASTROINTESTINAL: Negative for: Trouble swallowing, Heartburn, Change in bowel habits, Blood in stool, Dark black stools MUSCULOSKELETAL: Negative for: Muscle or joint pain, Stiffness , Joint swelling NEUROLOGIC/PSYCHIATRIC: Negative for: Weakness, Paralysis, Numbness, Tingling, Tremor, Nervousness, Depressed mood, Memory loss SKIN: Negative for: Rashes, Itching HEMATOLOGICAL/LYMPHATIC: Negative for: Easy bruising , Easy bleeding ENDOCRINE: Negative for: Heat or cold intolerance, Excessive sweating, Frequent urination, Frequent thirst ALLERGIES: Clindamycin, Keflex [Cephalexin], Naprosyn [Naproxen], Desmond Inhibitors, Adhesives [Other], Arthrotec 50 [Diclofenac-Misoprostol], Blephamide [Sulfacetamide-Prednisolone], Ditropan [Oxybutynin], Flagyl [Metronidazole Hcl], Flexeril [Cyclobenzaprine], Hctz [Hydrochlorothiazide], Naproxen Sodium, Paxil [Paroxetine], Sulfa (Sulfonamide Antibiotics), and Zestril [Lisinopril] PAST MEDICAL HISTORY: PAST MEDICAL HISTORY Diagnosis Date Abdominal pain, left lower quadrant long standing Arrhythmia Arthritis Asthma Atrial fibrillation (HCC) 2009 Atrophic vaginitis Benign neoplasm of colon C. 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, estrogen receptor positive (HCC) 06/03/2017 Mitral valve disorders(424.0) and irregular heartbeat on occasion stress related Mixed stress and urge urinary incontinence Osteoarthrosis, unspecified whether generalized or localized, other specified sites 07/22 vit D 41 Other diseases of pharynx, not elsewhere classified(478.29) Other extrapyramidal disease and abnormal movement disorder PMH - PAST MEDICAL HISTORY OF benign mass on liver PMR (polymyalgia rheumatica) (HCC) 2012 Pure hypercholesterolemia Snoring 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 Symptomatic menopausal or female climacteric states IN HER 50S 05/22 NORMAL BONE DENSITY Syncope Thyroid disease 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 Unspecified hemorrhoids without mention of complication Hemorrhoids Unspecified sleep apnea use CPAP SEVERAL YRS UTI (lower urinary tract infection) 2013 frequent SOCIAL HISTORY: Social History Tobacco Use Smoking status: Never Smokeless tobacco: Never Vaping Use Vaping Use: Never used Substance Use Topics Alcohol use: No Drug use: No FAMILY HISTORY: FAMILY HISTORY Problem Relation Age of Onset other ( age 59 [place]) Mother hypertension and TB other (pancreatic cancer) Father Breast Cancer Sister diagnosed at age 53 Breast Cancer Maternal Aunt diagnosed postmenopausal Breast Cancer Other 2 maternal first cousins Breast Cancer Other maternal cousins Breast Cancer Other maternal great grandmother other (sinus cavity CA) Son other (myeloma) Brother other (healthy) Sister other (ovarian cancer) Sister paternal grandmother CURRENT MEDICATIONS: Current Outpatient Medications Medication Sig Methenamine Hippurate (HIPREX) 1 gram tablet Take 1 tablet by mouth twice daily with meals. traMADol (ULTRAM) 50 mg tablet Take 50 mg by mouth every 6 hours as needed for pain. furosemide (LASIX) 20 mg tablet Take 1 tablet by mouth every other day. senna/docusate sodium (SENNA-C PLUS ORAL) Take 8.6 mg by mouth once daily. Acetaminophen 500 mg cap Take 1,000 mg by mouth as needed. guaiFENesin (ROBITUSSIN) 100 mg/5 mL syrup Take 200 mg by mouth every 4 hours as needed. FERROUS GLUCONATE ORAL Take 324 mg by mouth once daily. metoprolol succinate ER (TOPROL XL) 25 mg 24 hr tablet Take 1 tablet by mouth once daily. etuoqin-ssanartvg-sefzuwc D3 500 mg-5 mcg (200 unit) per tablet Take 1 tablet by mouth once daily. omeprazole (PRILOSEC) 40 mg capsule Take 1 capsule by mouth once daily. fluticasone (FLONASE) 50 mcg/actuation nasal spray Use 2 Sprays in each nostril once daily. levothyroxine (LEVOXYL) 25 mcg tablet Take 1 tablet by mouth once daily. Take on empty stomach. For Thyroid escitalopram oxalate (LEXAPRO) 10 mg tablet Take 1 tablet by mouth once daily. gabapentin (NEURONTIN) 600 mg tablet Take 0.5 tablets by mouth once daily. (Patient taking differently: Take 300 mg by mouth daily at bedtime.) cetirizine (ZYRTEC) 10 mg tablet Take 1 tablet by mouth once daily. MULTIVITAMIN TAB Take 1 tablet by mouth once daily. No current facility-administered medications for this visit. documented in this encounter [facility] 08-27-2022 Note HNO ID: [id number] Author: Angelic Arreola APRN.MIMEOGRAPHER Service: ? Author Type: Nurse Practitioner Type: Progress Notes Filed: 08/29/2022 1:17 PM Note Text: Chief Complaint Patient presents with: Established Patient HPI: Christian Landrum is a 87 year old female who presents here today for follow up breast cancer/LEIA. Per Dr. Bonilla's previous note: H/o underwent a left-sided simple mastectomy for a T2 N0 stage IIA hormone-receptor negative by IHC (positive by RT-PCR testing), HER-2 nonamplified breast cancer. Received 3 cycles of docetaxel and cyclophosphamide. Oncotype PCR suggested low level ER expression. Changed to exemestane due to severe b/l leg pain (trochanteric bursitis). Subsequently changed to tamoxifen 04/2010. CT A/P in 07/23 revealed new liver lesion which was not visualized on US. MRI demonstrated the lesion in anterior portion of right lobe of liver not typical appearance for hemangioma or FNH. PET scan was negative. Follow up MRI 10/23 showed the lesion to be stable. Diagnosed with polymyalgia rheumatica 2012. Completed aromasin/tamoxifen therapy 2012. Recently dx with new right sided primary breast cancer. Was found to have non-palpable abnormality on right sided screening mammogram. 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 Stains for both estrogen and progesterone receptors were positive (greater than 95% for both; strong for ER, moderate for ND). HER-2 3+. Had been using Estrace cream to help control symptoms of vaginal atrophy and recurrent UTIs. Underwent right mastectomy with SLN biopsy 08/29/2015. Pathology: A. Right axillary sentinel lymph node #1, excision: - Three lymph nodes negative for malignancy (0/3). B. Right breast, mastectomy: - Invasive ductal carcinoma, see synoptic report. - Atypical lobular hyperplasia. - Large hemorrhagic, organizing biopsy site. - Apocrine cysts, adenosis and stromal fibrosis. - Nipple with no pathologic change. C. Right axillary sentinel lymph node #2, excision: - One lymph node, negative for malignancy (0/1). SYNOPTIC REPORT OF [facility] RIGHT BREAST MASTECTOMY: Part: B Specimen Laterality: Right Procedure: Total mastectomy (including nipple and skin) Wire Localization: Wire absent Lymph Node Sampling: [place] lymph node(s) Tumor size: Size of largest invasive carcinoma: Greatest dimension of largest focus of invasion >1 mm: 8 mm Tumor Focality: Single focus of invasive carcinoma Macroscopic-Microscopic Extension of tumor: Skin: Uninvolved Nipple: Uninvolved Skeletal muscle: Not applicable Invasive Carcinoma Margins: Margins uninvolved by invasive carcinoma Distance from closest margin: 20 mm Closest Uninvolved Margin:Deep DCIS Margins: Margins uninvolved by DCIS (DCIS present) Distance from closest margin: 20 mm Closest Uninvolved Margin:Deep Histologic Type of Invasive Carcinoma: Invasive ductal carcinoma (no special type or not otherwise specified) Histologic Grade: Glandular (Acinar) / Tubular Differentiation: Score 2 Nuclear Pleomorphism: Score 3 Mitotic Rate: Score 1 Overall Grade: Grade II Lymph-Vascular Invasion: Not identified Ductal Carcinoma In Situ: DCIS is present Architectural Pattern:Cribriform DCIS Nuclear Grade: Grade III (high) DCIS Necrosis: Present, focal (small foci or single cell necrosis) Lymph Nodes: Total number of nodes examined (sentinel and nonsentinel): 4 Number of sentinel lymph nodes examined: 4 Number of lymph nodes with macrometastases (>2 mm): 0 Number of lymph nodes with micrometastases (>0.2 mm to 2 mm and/or >200 cells): 0 Number of lymph nodes with isolated tumor cells (<= 0.2 mm and <= 200 cells): 0 TNM Descriptor(s): Not applicable Primary Tumor (Invasive Carcinoma) (pT): pT1b Regional Lymph Nodes (pN): Modifier: (sn) Category (pN): pN0 Distant metastasis: Not Applicable Completed 5 years tamoxifen therapy. S/p underwent hysteroscopy DANDC at [facility] on 08/23/[address] Hebert. Path. Benign. Pt. now resides at [facility]. Pt. here today with her daughter. Pt. had covid for the second time in 9 months. Participating in PT/OT now. Appetite: Good. Wt. stable. Energy level: 75% maybe. I'm working at it. Denies fevers since covid. Symptoms lasted about 10 days. Resp:denies cough or sob, occ jennings-followed by PULM-using bi-pap, h/o allergies Cardiac:denies chest pain/palpitations h/o A.fib. -followed by Cards-has appt. next week. GI:denies abd pain (H/o IBS, colitis), n/v, moving bowels regularly-does not tolerate dairy :denies dysuria/hematuria-chronic UTI-followed by Urology Extrem:h/o RA, joint pain dx in her 40's -followed by Rheum-off of methotrexate En (more content not included)... [facility] 08-27-2022 History of Present illness Narrative Chief Complaint Patient presents with: Established Patient HPI: Christian Landrum is a 87 year old female who presents here today for follow up breast cancer/LEIA. Per Dr. Bonilla's previous note: H/o underwent a left-sided simple mastectomy for a T2 N0 stage IIA hormone-receptor negative by IHC (positive by RT-PCR testing), HER-2 nonamplified breast cancer. Received 3 cycles of docetaxel and cyclophosphamide. Oncotype PCR suggested low level ER expression. Changed to exemestane due to severe b/l leg pain (trochanteric bursitis). Subsequently changed to tamoxifen 04/2010. CT A/P in 07/23 revealed new liver lesion which was not visualized on US. MRI demonstrated the lesion in anterior portion of right lobe of liver not typical appearance for hemangioma or FNH. PET scan was negative. Follow up MRI 10/23 showed the lesion to be stable. Diagnosed with polymyalgia rheumatica 2012. Completed aromasin/tamoxifen therapy 2012. Recently dx with new right sided primary breast cancer. Was found to have non-palpable abnormality on right sided screening mammogram. 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 Stains for both estrogen and progesterone receptors were positive (greater than 95% for both; strong for ER, moderate for ND). HER-2 3+. Had been using Estrace cream to help control symptoms of vaginal atrophy and recurrent UTIs. Underwent right mastectomy with SLN biopsy 08/29/2015. Pathology: A. Right axillary sentinel lymph node #1, excision: - Three lymph nodes negative for malignancy (0/3). B. Right breast, mastectomy: - Invasive ductal carcinoma, see synoptic report. - Atypical lobular hyperplasia. - Large hemorrhagic, organizing biopsy site. - Apocrine cysts, adenosis and stromal fibrosis. - Nipple with no pathologic change. C. Right axillary sentinel lymph node #2, excision: - One lymph node, negative for malignancy (0/1). SYNOPTIC REPORT OF [facility] RIGHT BREAST MASTECTOMY: Part: B Specimen Laterality: Right Procedure: Total mastectomy (including nipple and skin) Wire Localization: Wire absent Lymph Node Sampling: [place] lymph node(s) Tumor size: Size of largest invasive carcinoma: Greatest dimension of largest focus of invasion >1 mm: 8 mm Tumor Focality: Single focus of invasive carcinoma Macroscopic-Microscopic Extension of tumor: Skin: Uninvolved Nipple: Uninvolved Skeletal muscle: Not applicable Invasive Carcinoma Margins: Margins uninvolved by invasive carcinoma Distance from closest margin: 20 mm Closest Uninvolved Margin:Deep DCIS Margins: Margins uninvolved by DCIS (DCIS present) Distance from closest margin: 20 mm Closest Uninvolved Margin:Deep Histologic Type of Invasive Carcinoma: Invasive ductal carcinoma (no special type or not otherwise specified) Histologic Grade: Glandular (Acinar) / Tubular Differentiation: Score 2 Nuclear Pleomorphism: Score 3 Mitotic Rate: Score 1 Overall Grade: Grade II Lymph-Vascular Invasion: Not identified Ductal Carcinoma In Situ: DCIS is present Architectural Pattern:Cribriform DCIS Nuclear Grade: Grade III (high) DCIS Necrosis: Present, focal (small foci or single cell necrosis) Lymph Nodes: Total number of nodes examined (sentinel and nonsentinel): 4 Number of sentinel lymph nodes examined: 4 Number of lymph nodes with macrometastases (>2 mm): 0 Number of lymph nodes with micrometastases (>0.2 mm to 2 mm and/or >200 cells): 0 Number of lymph nodes with isolated tumor cells (<= 0.2 mm and <= 200 cells): 0 TNM Descriptor(s): Not applicable Primary Tumor (Invasive Carcinoma) (pT): pT1b Regional Lymph Nodes (pN): Modifier: (sn) Category (pN): pN0 Distant metastasis: Not Applicable Completed 5 years tamoxifen therapy. S/p underwent hysteroscopy D&C at [facility] on 08/23/[address] Hebert. Path. Benign. Pt. now resides at [facility]. Pt. here today with her daughter. Pt. had covid for the second time in 9 months. Participating in PT/OT now. Appetite: Good. Wt. stable. Energy level: 75% maybe. I'm working at it. Denies fevers since covid. Symptoms lasted about 10 days. Resp:denies cough or sob, occ jennings-followed by PULM-using bi-pap, h/o allergies Cardiac:denies chest pain/palpitations h/o A.fib. -followed by Cards-has appt. next week. GI:denies abd pain (H/o IBS, colitis), n/v, moving bowels regularly-does not tolerate dairy :denies dysuria/hematuria-chronic UTI-followed by Urology Extrem:h/o RA, joint pain dx in her 40's -followed by Rheum-off of methotrexate Endo:denies hot flashes Neuro:+neuropathy to feet currently it's better Skin:denies rashes/lesions Heme:denies bleeding The ROS is otherwise negative. Past medical history, appointments, medications, allergies reviewed. No changes. EXAM: BP 116/56 Pulse 73 Temp 36.9 C (98.4 F) Wt 76.7 kg (169 lb) SpO2 96% BMI 27.28 kg/m APPEARANCE Well appearing, alert, in no acute distress, well-hydrated, well nourished. HEART RRR with normal S1 and S2, no murmurs LUNG clear to auscultation BREAST FEMALE b/l mastectomy scars, no nodule LYMPH NODES No cervical lymphadenopathy, No supraclavicular lymphadenopathy, and No axillary lymphadenopathy. ABDOMEN bowel sounds normoactive, soft, non-tender EXTREMITIES No edema NEURO Awake, alert and oriented x 3 and No involuntary motions. SKIN Skin color, texture, turgor normal, no suspicious rashes or lesions LABS: Component Latest Ref Rng & Units 04/17/2022 08/09/2022 WBC 3.70 - 11.00 k/uL 4.89 6.06 RBC 3.90 - 5.20 m/uL 3.78 (L) 3.34 (L) Hemoglobin 11.5 - 15.5 g/dL 11.3 (L) 11.9 Hematocrit 36.0 - 46.0 % 34.5 (L) 34.7 (L) MCV 80.0 - 100.0 fL 91.3 103.9 (H) MCH 26.0 - 34.0 pg 29.9 35.6 (H) MCHC 30.5 - 36.0 g/dL 32.8 34.3 RDW-CV 11.5 - 15.0 % 23.8 (H) 13.9 Platelet Count 150 - 400 k/uL 126 (L) 113 (L) MPV 9.0 - 12.7 fL 9.6 9.1 Neut% % 59.0 60.1 Abs Neut (ANC) 1.45 - 7.50 k/uL 2.88 3.64 Lymph% % 27.6 25.9 Abs Lymph 1.00 - 4.00 k/uL 1.35 1.57 [place]% % 11.0 11.2 Abs [place] <0.87 k/uL 0.54 0.68 Eosin% % 1.6 1.8 Abs Eosin <0.46 k/uL 0.08 0.11 Baso% % 0.6 0.7 Abs Baso <0.11 k/uL 0.03 0.04 Immature Gran % % 0.2 0.3 IMMATURE GRANS (ABS) <0.10 k/uL <0.03 <0.03 NRBC /100 WBC 0.0 0.0 Absolute nRBC <0.01 k/uL <0.01 <0.01 DTYPE Auto Auto Component Latest Ref Rng & Units 03/14/2022 04/17/2022 08/09/2022 Ferritin 14.7 - 205.1 ng/mL 45.9 601.0 (H) 302.0 (H) ASSESSMENT/PLAN: 1. 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 H/o Stage IIA left sided breast cancer. Received 3 cycles of TC. Completed 5 years' worth of AI/tamoxifen. 2. Iron deficiency anemia due to chronic blood loss - ICD9: 280.0, ICD10: D50.0 - No concerning findings on exam. - Reviewed labs with pt. and daughter. - Tolerated tamoxifen well. - Completed 5 years tamoxifen 2021. - Continue follow up with her specialists. - Needs port flushes monthly. - CBC/iron studies in 3 months. - Follow up in 6 months with CBC/iron studies. - Pt. aware to call office any questions/concerns. The patient indicates understanding of these issues and agrees with the plan. All documentation from previous visit of 06/05/22-Dr. Bonilla/myself was copied and pasted, documentation has been reviewed and edited as necessary for today's visit. Angelic Arreola APRN.INGE documented in this encounter [facility] 08-09-2022 Note HNO ID: [id number] Author: Vania Horan RN Service: ? Author Type: Registered Nurse Type: Progress Notes Filed: 08/09/2022 2:03 PM Note Text: Patient is here for IVAD port flush/blood draw per [facility] protocol. IVAD is located in left upper chest. Site cleansed with Chloraprep IVAD accessed with a #20 gauge 3/4 non-coring Gripper needle Flush with 5cc's Normal Saline. Blood Return: Good. 10 cc's blood aspirated and discarded. Blood drawn for CBC and CMP. Flushed with: 20 ml Normal Saline and 5 ml Heparin Lock Flush. Non-coring needle removed. Paper tape applied to puncture site. Site negative for redness, edema or tenderness. Patient tolerated procedure well. [facility] 06-11-2022 Miscellaneous Notes Pt. Daughter notified of results, voiced understanding. Sadie Lin LPN Please inform pts. daughter no concerning finding on xray (sorry it took awhile for the result). Follow up as scheduled unless pain persists. Thank you. Angelic Arreola APRN.CNP documented in this encounter [facility] 06-05-2022 Note HNO ID: [id number] Author: RT Nithin(R) Service: ? Author Type: Technologist Type: Progress Notes Filed: 06/05/2022 12:37 PM Note Text: Radiology Service Progress Note PATIENT NAME: Christian Landrum DATE OF SERVICE: June 05, 2022 TIME: 12:37 PM PATIENT IDENTITY VERIFICATION COMPLETED USING TWO (2) IDENTIFIERS: Name and Date of confirmed by patient verbally. FALL SCREENING: Has the patient had 2 falls in the last year or 1 fall with injury or currently using an Ambulatory Assistive Device (Walker, Cane, Wheelchair, Crutches, etc.)? No PATIENT GENDER DATA: Female. status: : No status: NO. PATIENT RELEVANT IMPLANT DATA REVIEWED: Not Applicable RADIOLOGY DEPARTMENT: General X-ray: Exam(s) Completed: Rib X-Ray: Right PERIPHERAL IV DATA: Not applicable SIGNED BY: RT Nithin(R) June 05, 2022 12:37 PM [facility] 06-05-2022 Note HNO ID: [id number] Author: Angelic Arreola APRN.CNP Service: ? Author Type: Nurse Practitioner Type: Progress Notes Filed: 06/07/2022 8:28 AM Note Text: Chief Complaint Patient presents with: Established Patient HPI: Christian Landrum is a 86 year old female who presents here today for complaints of R sided chest pain/rib pain. See phone note. Per Dr. Bonilla's previous note: H/o underwent a left-sided simple mastectomy for a T2 N0 stage IIA hormone-receptor negative by IHC (positive by RT-PCR testing), HER-2 nonamplified breast cancer. Received 3 cycles of docetaxel and cyclophosphamide. Oncotype PCR suggested low level ER expression. Changed to exemestane due to severe b/l leg pain (trochanteric bursitis). Subsequently changed to tamoxifen 04/2010. CT A/P in 07/23 revealed new liver lesion which was not visualized on US. MRI demonstrated the lesion in anterior portion of right lobe of liver not typical appearance for hemangioma or FNH. PET scan was negative. Follow up MRI 10/23 showed the lesion to be stable. Diagnosed with polymyalgia rheumatica 2012. Completed aromasin/tamoxifen therapy 2012. Recently dx with new right sided primary breast cancer. Was found to have non-palpable abnormality on right sided screening mammogram. 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 Stains for both estrogen and progesterone receptors were positive (greater than 95% for both; strong for ER, moderate for ND). HER-2 3+. Had been using Estrace cream to help control symptoms of vaginal atrophy and recurrent UTIs. Underwent right mastectomy with SLN biopsy 08/29/2015. Pathology: A. Right axillary sentinel lymph node #1, excision: - Three lymph nodes negative for malignancy (0/3). B. Right breast, mastectomy: - Invasive ductal carcinoma, see synoptic report. - Atypical lobular hyperplasia. - Large hemorrhagic, organizing biopsy site. - Apocrine cysts, adenosis and stromal fibrosis. - Nipple with no pathologic change. C. Right axillary sentinel lymph node #2, excision: - One lymph node, negative for malignancy (0/1). SYNOPTIC REPORT OF [facility] RIGHT BREAST MASTECTOMY: Part: B Specimen Laterality: Right Procedure: Total mastectomy (including nipple and skin) Wire Localization: Wire absent Lymph Node Sampling: [place] lymph node(s) Tumor size: Size of largest invasive carcinoma: Greatest dimension of largest focus of invasion >1 mm: 8 mm Tumor Focality: Single focus of invasive carcinoma Macroscopic-Microscopic Extension of tumor: Skin: Uninvolved Nipple: Uninvolved Skeletal muscle: Not applicable Invasive Carcinoma Margins: Margins uninvolved by invasive carcinoma Distance from closest margin: 20 mm Closest Uninvolved Margin:Deep DCIS Margins: Margins uninvolved by DCIS (DCIS present) Distance from closest margin: 20 mm Closest Uninvolved Margin:Deep Histologic Type of Invasive Carcinoma: Invasive ductal carcinoma (no special type or not otherwise specified) Histologic Grade: Glandular (Acinar) / Tubular Differentiation: Score 2 Nuclear Pleomorphism: Score 3 Mitotic Rate: Score 1 Overall Grade: Grade II Lymph-Vascular Invasion: Not identified Ductal Carcinoma In Situ: DCIS is present Architectural Pattern:Cribriform DCIS Nuclear Grade: Grade III (high) DCIS Necrosis: Present, focal (small foci or single cell necrosis) Lymph Nodes: Total number of nodes examined (sentinel and nonsentinel): 4 Number of sentinel lymph nodes examined: 4 Number of lymph nodes with macrometastases (>2 mm): 0 Number of lymph nodes with micrometastases (>0.2 mm to 2 mm and/or >200 cells): 0 Number of lymph nodes with isolated tumor cells (<= 0.2 mm and <= 200 cells): 0 TNM Descriptor(s): Not applicable Primary Tumor (Invasive Carcinoma) (pT): pT1b Regional Lymph Nodes (pN): Modifier: (sn) Category (pN): pN0 Distant metastasis: Not Applicable Completed 5 years tamoxifen therapy. S/p underwent hysteroscopy DANDC at [facility] on 08/23/[address] Hebert. Path. Benign. Pt. now resides at [facility]. Pt. here today with her daughter. Pt. started with R rib pain over a week ago. It went away after a couple days and now it's back. It doesn't hurt right now. Denies injury. Appetite: Good. Energy level: Bad. Denies fevers or recent illness. Resp:denies cough or sob, occ jennings-followed by PULM-using bi-pap, h/o allergies Cardiac:denies chest pain/palpitations h/o A.fib. GI:denies abd pain (H/o IBS, colitis), n/v, moving bowels regularly :denies dysuria/hematuria-chronic UTI-followed by Urology Extrem:h/o RA, joint pain dx in her 40's -followed by Rheum-off of methotrexate-takes tylenol as needed Endo:denies (more content not included)... [facility] 06-05-2022 History of Present illness Narrative Radiology Service Progress Note PATIENT NAME: Christian Landrum DATE OF SERVICE: June 05, 2022 TIME: 12:37 PM PATIENT IDENTITY VERIFICATION COMPLETED USING TWO (2) IDENTIFIERS: Name and Date of confirmed by patient verbally. FALL SCREENING: Has the patient had 2 falls in the last year or 1 fall with injury or currently using an Ambulatory Assistive Device (Walker, Cane, Wheelchair, Crutches, etc.)? No PATIENT GENDER DATA: Female. status: : No status: NO. PATIENT RELEVANT IMPLANT DATA REVIEWED: Not Applicable RADIOLOGY DEPARTMENT: General X-ray: Exam(s) Completed: Rib X-Ray: Right PERIPHERAL IV DATA: Not applicable SIGNED BY: RT Nithin(R) June 05, 2022 12:37 PM documented in this encounter [facility] 06-05-2022 History of Present illness Narrative Chief Complaint Patient presents with: Established Patient HPI: Christian Landrum is a 86 year old female who presents here today for complaints of R sided chest pain/rib pain. See phone note. Per Dr. Bonilla's previous note: H/o underwent a left-sided simple mastectomy for a T2 N0 stage IIA hormone-receptor negative by IHC (positive by RT-PCR testing), HER-2 nonamplified breast cancer. Received 3 cycles of docetaxel and cyclophosphamide. Oncotype PCR suggested low level ER expression. Changed to exemestane due to severe b/l leg pain (trochanteric bursitis). Subsequently changed to tamoxifen 04/2010. CT A/P in 07/23 revealed new liver lesion which was not visualized on US. MRI demonstrated the lesion in anterior portion of right lobe of liver not typical appearance for hemangioma or FNH. PET scan was negative. Follow up MRI 10/23 showed the lesion to be stable. Diagnosed with polymyalgia rheumatica 2012. Completed aromasin/tamoxifen therapy 2012. Recently dx with new right sided primary breast cancer. Was found to have non-palpable abnormality on right sided screening mammogram. 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 Stains for both estrogen and progesterone receptors were positive (greater than 95% for both; strong for ER, moderate for ND). HER-2 3+. Had been using Estrace cream to help control symptoms of vaginal atrophy and recurrent UTIs. Underwent right mastectomy with SLN biopsy 08/29/2015. Pathology: A. Right axillary sentinel lymph node #1, excision: - Three lymph nodes negative for malignancy (0/3). B. Right breast, mastectomy: - Invasive ductal carcinoma, see synoptic report. - Atypical lobular hyperplasia. - Large hemorrhagic, organizing biopsy site. - Apocrine cysts, adenosis and stromal fibrosis. - Nipple with no pathologic change. C. Right axillary sentinel lymph node #2, excision: - One lymph node, negative for malignancy (0/1). SYNOPTIC REPORT OF [facility] RIGHT BREAST MASTECTOMY: Part: B Specimen Laterality: Right Procedure: Total mastectomy (including nipple and skin) Wire Localization: Wire absent Lymph Node Sampling: [place] lymph node(s) Tumor size: Size of largest invasive carcinoma: Greatest dimension of largest focus of invasion >1 mm: 8 mm Tumor Focality: Single focus of invasive carcinoma Macroscopic-Microscopic Extension of tumor: Skin: Uninvolved Nipple: Uninvolved Skeletal muscle: Not applicable Invasive Carcinoma Margins: Margins uninvolved by invasive carcinoma Distance from closest margin: 20 mm Closest Uninvolved Margin:Deep DCIS Margins: Margins uninvolved by DCIS (DCIS present) Distance from closest margin: 20 mm Closest Uninvolved Margin:Deep Histologic Type of Invasive Carcinoma: Invasive ductal carcinoma (no special type or not otherwise specified) Histologic Grade: Glandular (Acinar) / Tubular Differentiation: Score 2 Nuclear Pleomorphism: Score 3 Mitotic Rate: Score 1 Overall Grade: Grade II Lymph-Vascular Invasion: Not identified Ductal Carcinoma In Situ: DCIS is present Architectural Pattern:Cribriform DCIS Nuclear Grade: Grade III (high) DCIS Necrosis: Present, focal (small foci or single cell necrosis) Lymph Nodes: Total number of nodes examined (sentinel and nonsentinel): 4 Number of sentinel lymph nodes examined: 4 Number of lymph nodes with macrometastases (>2 mm): 0 Number of lymph nodes with micrometastases (>0.2 mm to 2 mm and/or >200 cells): 0 Number of lymph nodes with isolated tumor cells (<= 0.2 mm and <= 200 cells): 0 TNM Descriptor(s): Not applicable Primary Tumor (Invasive Carcinoma) (pT): pT1b Regional Lymph Nodes (pN): Modifier: (sn) Category (pN): pN0 Distant metastasis: Not Applicable Completed 5 years tamoxifen therapy. S/p underwent hysteroscopy D&C at [facility] on 08/23/[address] Hebert. Path. Benign. Pt. now resides at [facility]. Pt. here today with her daughter. Pt. started with R rib pain over a week ago. It went away after a couple days and now it's back. It doesn't hurt right now. Denies injury. Appetite: Good. Energy level: Bad. Denies fevers or recent illness. Resp:denies cough or sob, occ jennings-followed by PULM-using bi-pap, h/o allergies Cardiac:denies chest pain/palpitations h/o A.fib. GI:denies abd pain (H/o IBS, colitis), n/v, moving bowels regularly :denies dysuria/hematuria-chronic UTI-followed by Urology Extrem:h/o RA, joint pain dx in her 40's -followed by Rheum-off of methotrexate-takes tylenol as needed Endo:denies hot flashes Neuro:+neuropathy to feet-stable Skin:denies rashes/lesions Heme:denies bleeding since visit with VOCATIONAL PSYCHOLOGIST The ROS is otherwise negative. Past medical history, appointments, medications, allergies reviewed. No changes. EXAM: BP 116/54 Pulse 74 Temp 36.6 C (97.8 F) Wt 77.3 kg (170 lb 8 oz) SpO2 97% BMI 27.52 kg/m APPEARANCE Well appearing, alert, in no acute distress, well-hydrated, well nourished. HEART RRR with normal S1 and S2, no murmurs LUNG clear to auscultation BREAST FEMALE b/l mastectomy scars, no nodule/mass/skin changes, NT ribs R LYMPH NODES No cervical lymphadenopathy, No supraclavicular lymphadenopathy, and No axillary lymphadenopathy. EXTREMITIES No edema NEURO Awake, alert and oriented x 3, using wheeled walker, and No involuntary motions. SKIN Skin color, texture, turgor normal, no suspicious rashes or lesions ASSESSMENT/PLAN: 1. 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 H/o Stage IIA left sided breast cancer. Received 3 cycles of TC. Completed 5 years' worth of AI/tamoxifen. - New R lateral rib pain-although denies pain today. - Tolerated tamoxifen well. - Completed 5 years tamoxifen 2021. - Continue follow up with her specialists. - Needs port flushes monthly. - Xray R ribs today. - Follow up as scheduled-pending xray. - Pt. aware to call office any questions/concerns. The patient indicates understanding of these issues and agrees with the plan. All documentation from previous visit of 03/06/22-Dr. Bonilla/myself was copied and pasted, documentation has been reviewed and edited as necessary for today's visit. Angelic Arreola APRN.INGE documented in this encounter [facility] 05-30-2022 Miscellaneous Notes Spoke with Jie at [facility] and she stated that appointments need made with the patient's family as they are the ones that transport the patient. Spoke with patient's daughter, advising below, and scheduled May follow up as directed. Meredith Alonzo Left detailed message for Herminia with information below. I attempted to contact [facility], , they were unable to hear on their line. Unable to speak to anyone. I faxed this information to [phone]. Will attempt to contact again later. PSS- please contact [facility] to schedule as directed below. Lisa Morales LPN Noted. Monitor R lateral chest. If no improvement then OV in one week. OV/CBC/iron studies early July. Thank you. Angelic Arreola APRN.INGE Last OV 03/06/2022. Patient c/o right sided rib pain for the last 2 days. Herminia denies any injury/accident to that area and states the pain is at the area of the remaining breast tissue and lateral. She is asking if any imaging is warranted? Also, patient had last dose of iron 04/17/2022, has not required transfusions since iron. Patient has no follow up scheduled for anemia or breast cancer. Does patient need to follow here? Lisa Morales LPN Herminia from [facility] called stating patient is having right side pain, rib area. She is asking if imaging orders could be sent or if patient needs to be seen . She states concern due to hx breast cancer. Please call Hermiina at [phone] documented in this encounter [facility] 05-27-2022 Note HNO ID: [id number] Author: Stella Casper PA-C Service: ? Author Type: Physician Specialty Transformer Assembler Type: Progress Notes Filed: 05/27/2022 2:53 PM Note Text: Stella Casper PA-C Department of Orthopaedics Orthopaedics [address] [facility] [address] Dept: [phone] Dept May 27, 2022 CHIEF COMPLAINT: Follow Up and Knee Pain of the Left Knee and Follow Up and Knee Pain of the Right Knee. ASSESSMENT: M17.0 Primary osteoarthritis of both knees (primary encounter diagnosis) SUMMARY/PLAN: Patient presents requesting repeat right knee corticosteroid injection and also an injection of her left knee. Her previous right knee injection was in January of last year, she found injection to be very helpful. Unfortunately pain has returned and is a 5-9 out of 10 sharp aching mostly in the anterior aspect of both knees. The patient has rheumatoid arthritis, unfortunately she had to discontinue her methotrexate. She struggles with anemia of unknown origin and cannot tolerate NSAIDs. Patient resides in an assisted living, she ambulates with the assistance of a rollator. Large Joint Arthro/Inj: bilateral knee joints Informed Consent Consent Obtained: Verbal [place] Protocol A moment to CARE was completed. SIGN IN Sign in communication not applicable due to emergent procedure. Personnel directly involved with the procedure wore the appropriate PPE. Special Equipment: N/A Patient/Surrogate Stated/Verified: Patient name, Date of , Relevant allergies and Intended procedure TIME OUT Intended patient and procedure match the source document(s). Consent documented and matches the intended procedure. Relevant labs, photos, and/or imaging studies have been reviewed. Correct side/site marked and visible. Medications required for procedure verified. No fire risk assessment and interventions applicable. No implant(s) inserted. 05/27/2022 2:53 PM The procedure site was prepped in the usual sterile fashion. Site: bilateral knee joints Medications (Right): 6 mg betamethasone acetate-betamethasone sodium phosphate 6 mg/mL Medications (Left): 6 mg betamethasone acetate-betamethasone sodium phosphate 6 mg/mL Anesthetics (Right): 5 mL lidocaine (PF) 10 mg/mL (1 %) Anesthetics (Left): 5 mL lidocaine (PF) 10 mg/mL (1 %) Outcome: Tolerated well, no immediate complications Post-injection instructions were reviewed with the patient and the patient voiced understanding of these instructions. SIGN OUT Post-procedure follow-up management communicated and Plan of Care Visit completed when applicable Ms. Christian Landrum was advised as to contrast therapies and/or to take analgesics/anti-inflammatories as needed and all contraindications were reviewed. Supporting Information Below: Medications: Current Outpatient Medications Medication Sig furosemide (LASIX) 20 mg tablet Take 1 tablet by mouth every other day. senna/docusate sodium (SENNA-C PLUS ORAL) Take 8.6 mg by mouth once daily. Acetaminophen 500 mg cap Take 1,000 mg by mouth as needed. guaiFENesin (ROBITUSSIN) 100 mg/5 mL syrup Take 200 mg by mouth every 4 hours as needed. FERROUS GLUCONATE ORAL Take 324 mg by mouth. estradiol (ESTRACE) 0.01 % (0.1 mg/gram) vaginal cream Apply a pea sized amount to the vaginal opening every 3 days Methenamine Hippurate (HIPREX) 1 gram tablet Take 1 tablet by mouth twice daily with meals. metoprolol succinate ER (TOPROL XL) 25 mg 24 hr tablet Take 1 tablet by mouth once daily. fluticasone (FLONASE) 50 mcg/actuation nasal spray Use 2 Sprays in each nostril once daily. levothyroxine (LEVOXYL) 25 mcg tablet Take 1 tablet by mouth once daily. Take on empty stomach. For Thyroid escitalopram oxalate (LEXAPRO) 10 mg tablet Take 1 tablet by mouth once daily. cetirizine (ZYRTEC) 10 mg tablet Take 1 tablet by mouth once daily. MULTIVITAMIN TAB Take 1 tablet by mouth once daily. traMADol (ULTRAM) 50 mg tablet Take 50 mg by mouth every 6 hours as needed for pain. tlyasoq-rhfdwehfc-tadwxcp D3 500 mg-5 mcg (200 unit) per tablet Take 1 tablet by mouth once daily. omeprazole (PRILOSEC) 40 mg capsule Take 1 capsule by mouth once daily. gabapentin (NEURONTIN) 600 mg tablet Take 0.5 tablets by mouth once daily. (Patient taking differently: Take 300 mg by mouth daily at bedtime.) No current facility-administered medications for this visit. Allergies: Clindamycin, Keflex [Cephalexin], Naprosyn [Naproxen], [place]mond Inhibitors, Adhesives [Other], Arthrotec 50 [Diclofenac-Misoprostol], Blephamide [Sulfacetamide-Prednisolone], Ditropan [Oxybutynin], Flagyl [Metronidazole Hcl], Flexeril [Cyclobenzaprine], Hctz [Hydrochlorothiazide], Naproxen Sodium, Paxil [Paroxetine], Sulfa (Sulfonamide Antibiotics), and Zestril [Lisinopril] This note was partially generated using Voxa voice recognition system, and there may be some incorrect words, spellings, and punctuation t (more content not included)... [facility] 05-27-2022 Note HNO ID: [id number] Author: Kandace Joyner RN Service: ? Author Type: ? Type: Progress Notes Filed: 05/27/2022 2:53 PM Note Text: AMB ROOMING INTAKE FLOWSHEET DATA Pain Pain Level: 5 (5-9/10) Pain Location: Other: See Comment (B/L knee) Description: Aching, Pressure Duration Amount of Time: (several) Duration Units: Months Frequency: Continuous Intervention/Comfort measure: Reposition, Relaxation, Medication (Tylenol, tramadol) Patient presents with: Left Knee - Follow Up, Knee Pain Right Knee - Follow Up, Knee Pain Patient is with daughter today. She is 18 weeks post visit OA of both knees with injection given in R knee. Patient requesting injection in B/L knees today. [facility] 05-17-2022 Note HNO ID: [id number] Author: Loy Herring RN Service: ? Author Type: Registered Nurse Type: Progress Notes Filed: 05/17/2022 1:40 PM Note Text: See scanned docs for lab results from 05/06 collected in [facility]. [facility] 04-10-2022 Miscellaneous Notes Daughter called stating that patient mentioned yesterday that she had intense right sided chest pain that went up into her neck for 15 minutes after Mondays iron infusion. Patient was resting when the episode occurred. Patient had an OV with cardiology yesterday who offered to do a cardiac work up or to monitor symptoms and patient chose to monitor symptoms. Daughter stated patient did not have any nausea, dizziness, SOB, or reflux symptoms when the episode occurred. Daughter wanted to report symptoms to Dr. Bonilla in case this is a contraindication to receive the iron. Patient is scheduled for dose #2 of iron today. Starla Son RN documented in this encounter [facility] 04-09-2022 Note HNO ID: [id number] Author: Taty Argueta APRN.INGE Service: ? Author Type: Nurse Practitioner Type: Progress Notes Filed: 04/22/2022 8:05 AM Note Text: [facility] Department of Cardiovascular Medicine SECTION OF CLINICAL CARDIOLOGY OUTPATIENT VISIT DATE April 09, 2022 OUTPATIENT VISIT TYPE ESTABLISHED Some documentation from previous visit of 09/05/2021 was copied and pasted, documentation has been reviewed and edited as necessary for today's visit. Patient Name: Christian Landrum : 1935 PRIMARY CARE PHYSICIAN: Ariel Sainz MD CHIEF COMPLAINT: Patient presents with: Follow Up: 7 Month Interval Hx: Ms. Landrum comes for a follow up visit. She has a PMH of PAF on Warfarin, rheumatic MV regurgitation, HTN, HLD, STUART, breast Ca, PMR and OA. The last office visit visit with Dr. Ibarra was 09/05/2021. . Patient with 0 hospitalizations or ER visits since last OV. Patient came to the OV with her daughter She reports that she has had 4 episodes of chest pain over the last 6 months. She reports her most recent episode was last night and occurred while sitting. She notes that it lasted approximately 15 minutes and did not change or worsen with movement. She reports the pain was on the right side of her chest up into her neck/jaw. This is the first time she has noted that the pain had ever radiated. She denied any dizziness, lightheadedness, nausea or diaphoresis. Her last episode occurred before . She did not take any medication while the pain was occurring. That resolved without any intervention. Yesterday she received the first of 5 iron infusions. She reports good fluid intake as well as adequate nutrition at home. She has not been taking her warfarin and is aware of the risk of potential stroke. She has been off warfarin for about 2 months due to issues with bleeding and positive occult stools. She does not take a diuretic at home. She reports compliance with all of her other medications. IMPRESSION/PLAN: Chest Pain - long discussion with patient and daughter today. - as offered stress test and echo to evaluate her episodes of chest pain over the last few months - patient has requested a more conservative approach to treatments - she will monitor her sx and notify me if she would like to pursue testing. - She is on BB therapy - no ASA on board due to GI bleeds and occult positive stools. Paroxysmal atrial fibrillation - Stable and remains in sinus rhythm today - No atrial fibrillation noted despite multiple hospital admissions with fever - Historically was on Warfarin but this was stopped in February 2022 for GI bleed. Patient is not on any OAC and has full understanding of risk associated with not being anticoagulated. - Currently on metoprolol Rheumatic mitral regurgitation - Echo 08/2020: trace-1+ MR - Stable, continue to monitor clinically and with periodic echocardiogram - She wants to hold off echocardiogram at this time Essential hypertension - Good control on metoprolol - Encouraged dietary sodium restriction/DASH diet - Recommended regular aerobic exercise. - Goal of BP <130/80 Mixed hyperlipidemia - LDL ok with TG elevated at 187, 01/2020 STUART (obstructive sleep apnea) - Compliant on BIPAP Shortness of breath - multifactorial in the setting of anemia, deconditioning - at baseline - low Na diet - continue lasix - increase activity as able I spent a total of 33 minutes on the date of the service which included preparing to see the patient, [id number] patient care, completing clinical documentation, performing a medically appropriate examination, counseling and educating the patient/family/caregiver, ordering medications, tests, or procedures, and communicating results to the patient/family/caregiver. Thank you very much for allowing me to assist in the care of Christian Landrum. Please do not hesitate to contact me if you have questions or concerns. Taty Argueta APRN.INGE Cardiology Nurse Practitioner Section of Regional Cardiology [facility] Dept of Cardiovascular Medicine [facility] [address] [address] Office Office April 09, 2022 2:44 PM This note was partially generated using Voxa voice recognition system and may contain errors related to that system including grammar, punctuation, spelling, and words that may be inappropriate. CARDIAC STUDIES: LV Ejection Fraction (%) Date Value 09/07/2020 65 08/03/2019 62 02/22/2014 63 06/20/2011 60 Last EKG Result Conclusion ECG COMPLETE Collected: 09/05/2021 12:13 PM (Preliminary result) Impression: NORMAL SINUS RHYTHM NONSPECIFIC T WAVE ABNORMALITY PROLONGED QT INTERVAL OR TU FUSION, CONSIDER HYPOKALEMIA ABNORMAL ECG LABS: Sodium (mmol/L) Peña (more content not included)... [facility] 04-09-2022 Instructions Taty Argueta APRN.INGE - 04/09/2022 3:08 PM EST We reviewed some recent symptoms of chest pain We agreed to monitor for now as you want more conservative management. If you change you mind I will order a stress test and echo to check for heart function and possible decreased blood flow. Continue same meds for now. Check blood pressure twice a day - please fax BP readings to [phone] I would like to know if your blood pressure is lower on the days that you take Lasix. We may need to consider changing this to as needed only. Please let me know if you have sx again after your iron treatment Friday. Try and stay active as much as you can One thing we could consider is low dose Amlodipine as treatment for possible angina. I would start with 2.5 mg daily. Low sodium diet is recommended documented in this encounter [facility] 04-09-2022 History of Present illness Narrative Images from the original note were not included. [facility] Department of Cardiovascular Medicine SECTION OF CLINICAL CARDIOLOGY OUTPATIENT VISIT DATE April 09, 2022 OUTPATIENT VISIT TYPE ESTABLISHED Some documentation from previous visit of 09/05/2021 was copied and pasted, documentation has been reviewed and edited as necessary for today's visit. Patient Name: Christian Landrum : 1935 PRIMARY CARE PHYSICIAN: Ariel Sainz MD CHIEF COMPLAINT: Patient presents with: Follow Up: 7 Month Interval Hx: Ms. Landrum comes for a follow up visit. She has a PMH of PAF on Warfarin, rheumatic MV regurgitation, HTN, HLD, STUART, breast Ca, PMR and OA. The last office visit visit with Dr. Ibarra was 09/05/2021. . Patient with 0 hospitalizations or ER visits since last OV. Patient came to the OV with her daughter She reports that she has had 4 episodes of chest pain over the last 6 months. She reports her most recent episode was last night and occurred while sitting. She notes that it lasted approximately 15 minutes and did not change or worsen with movement. She reports the pain was on the right side of her chest up into her neck/jaw. This is the first time she has noted that the pain had ever radiated. She denied any dizziness, lightheadedness, nausea or diaphoresis. Her last episode occurred before . She did not take any medication while the pain was occurring. That resolved without any intervention. Yesterday she received the first of 5 iron infusions. She reports good fluid intake as well as adequate nutrition at home. She has not been taking her warfarin and is aware of the risk of potential stroke. She has been off warfarin for about 2 months due to issues with bleeding and positive occult stools. She does not take a diuretic at home. She reports compliance with all of her other medications. IMPRESSION/PLAN: Chest Pain - long discussion with patient and daughter today. - as offered stress test and echo to evaluate her episodes of chest pain over the last few months - patient has requested a more conservative approach to treatments - she will monitor her sx and notify me if she would like to pursue testing. - She is on BB therapy - no ASA on board due to GI bleeds and occult positive stools. Paroxysmal atrial fibrillation - Stable and remains in sinus rhythm today - No atrial fibrillation noted despite multiple hospital admissions with fever - Historically was on Warfarin but this was stopped in February 2022 for GI bleed. Patient is not on any OAC and has full understanding of risk associated with not being anticoagulated. - Currently on metoprolol Rheumatic mitral regurgitation - Echo 08/2020: trace-1+ MR - Stable, continue to monitor clinically and with periodic echocardiogram - She wants to hold off echocardiogram at this time Essential hypertension - Good control on metoprolol - Encouraged dietary sodium restriction/DASH diet - Recommended regular aerobic exercise. - Goal of BP <130/80 Mixed hyperlipidemia - LDL ok with TG elevated at 187, 01/2020 STUART (obstructive sleep apnea) - Compliant on BIPAP Shortness of breath - multifactorial in the setting of anemia, deconditioning - at baseline - low Na diet - continue lasix - increase activity as able I spent a total of 33 minutes on the date of the service which included preparing to see the patient, [id number] patient care, completing clinical documentation, performing a medically appropriate examination, counseling and educating the patient/family/caregiver, ordering medications, tests, or procedures, and communicating results to the patient/family/caregiver. Thank you very much for allowing me to assist in the care of Christian Landrum. Please do not hesitate to contact me if you have questions or concerns. Taty Argueta APRN.[facility] Cardiology Nurse Practitioner Section of Regional Cardiology [facility] Dept of Cardiovascular Medicine [facility] [address] [place] [address] Office Office April 09, 2022 2:44 PM This note was partially generated using MUV Interactive recognition system and may contain errors related to that system including grammar, punctuation, spelling, and words that may be inappropriate. CARDIAC STUDIES: LV Ejection Fraction (%) Date Value 09/07/2020 65 08/03/2019 62 02/22/2014 63 06/20/2011 60 Last EKG Result Conclusion ECG COMPLETE Collected: 09/05/2021 12:13 PM (Preliminary result) Impression: NORMAL SINUS RHYTHM NONSPECIFIC T WAVE ABNORMALITY PROLONGED QT INTERVAL OR TU FUSION, CONSIDER HYPOKALEMIA ABNORMAL ECG LABS: Sodium (mmol/L) Date Value 03/14/2022 137 08/13/2021 142 03/27/2021 139 02/27/2021 136 Potassium (mmol/L) Date Value 03/14/2022 3.9 08/13/2021 4.0 03/27/2021 3.9 02/27/2021 3.8 BUN (mg/dL) Date Value 03/14/2022 14 08/13/2021 11 08/12/2021 13 2021 19 03/27/2021 9 02/27/2021 10 02/09/2021 10 01/14/2021 10 Creatinine (mg/dL) Date Value 03/14/2022 0.63 08/13/2021 0.74 08/12/2021 0.78 2021 0.71 03/27/2021 0.61 02/27/2021 0.69 02/09/2021 0.69 01/14/2021 0.85 Magnesium (mg/dL) Date Value 08/13/2021 2.1 07/06/2021 2.0 01/14/2021 2.0 01/12/2021 2.0 Hemoglobin (g/dL) Date Value 03/22/2022 10.8 10/16/2021 6.5 04/11/2021 11.8 03/27/2021 11.1 No results found for: PROBNP No results found for: HSTNT Cholesterol, Total (mg/dL) Date Value 02/01/2020 102 HDL Cholesterol (mg/dL) Date Value 02/01/2020 32 Triglyceride (mg/dL) Date Value 02/01/2020 187 LDL Cholesterol (mg/dL) Date Value 02/01/2020 33 TSH (uU/mL) Date Value 04/11/2021 3.020 PT INR (no units) Date Value 10/16/2021 2.1 (biotel) INR (no units) Date Value 10/16/2021 1.9 There were no tests performed for review. PHYSICAL EXAMINATION: Vitals: BP 118/58 (BP Site: Left Arm, BP Position: Sitting, BP Cuff Size: Regular Adult) Pulse 75 Ht 167.6 cm (5' 6 ) Wt 76.7 kg (169 lb) SpO2 98% BMI 27.28 kg/m General: Well appearing, in no acute distress. Skin: No clubbing, no cyanosis. Eyes: Extra ocular movements intact Oropharynx: Teeth in good repair. Neck: No jugular venous distention, no carotid bruits, carotids have a normal upstroke, no palpable thyromegaly. Lungs: Clear to auscultation bilaterally, no wheezing or rhonchi. Heart: Regular rhythm, PMI not displaced, S1, S2 normal, no S3, no S4, no heaves, no rub and no murmur. Abdomen: Soft, nontender, bowel sounds normal, no palpable organomegaly, no bruits. Extremities: No peripheral edema . Grade 2/4 distal pulses bilaterally. Neuro: Oriented to person, place and time, alert, cooperative, gait coordinated. REVIEW OF SYSTEMS: GENERAL: Negative for: Weight loss or gain, Fever or Chills, Weakness and Sleep difficulties. HEENT: Negative for: Headache, Impaired Vision, Glasses, Hearing Impairment, Ringing in Ears, Nosebleeds, Poor dental care, Bleeding Gums, Dentures NECK: Negative for: Swelling, Pain, Stiffness RESPIRATORY: Negative for: Cough, Blood in Sputum, Shortness of breath, Wheezing, Apnea GASTROINTESTINAL: Negative for: Trouble swallowing, Heartburn, Change in bowel habits, Blood in stool, Dark black stools MUSCULOSKELETAL: Negative for: Muscle or joint pain, Stiffness , Joint swelling NEUROLOGIC/PSYCHIATRIC: Negative for: Weakness, Paralysis, Numbness, Tingling, Tremor, Nervousness, Depressed mood, Memory loss SKIN: Negative for: Rashes, Itching HEMATOLOGICAL/LYMPHATIC: Negative for: Easy bruising , Easy bleeding ENDOCRINE: Negative for: Heat or cold intolerance, Excessive sweating, Frequent urination, Frequent thirst ALLERGIES: Clindamycin, Keflex [Cephalexin], Naprosyn [Naproxen], Desmond Inhibitors, Adhesives [Other], Arthrotec 50 [Diclofenac-Misoprostol], Blephamide [Sulfacetamide-Prednisolone], Ditropan [Oxybutynin], Flagyl [Metronidazole Hcl], Flexeril [Cyclobenzaprine], Hctz [Hydrochlorothiazide], Naproxen Sodium, Paxil [Paroxetine], Sulfa (Sulfonamide Antibiotics), and Zestril [Lisinopril] PAST MEDICAL HISTORY: PAST MEDICAL HISTORY Diagnosis Date Abdominal pain, left lower quadrant long standing Arrhythmia Arthritis Asthma Atrial fibrillation (HCC) 2009 Atrophic vaginitis Benign neoplasm of colon C. 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, estrogen receptor positive (HCC) 06/03/2017 Mitral valve disorders(424.0) and irregular heartbeat on occasion stress related Mixed stress and urge urinary incontinence Osteoarthrosis, unspecified whether generalized or localized, other specified sites 07/22 vit D 41 Other diseases of pharynx, not elsewhere classified(478.29) Other extrapyramidal disease and abnormal movement disorder PMH - PAST MEDICAL HISTORY OF benign mass on liver PMR (polymyalgia rheumatica) ([facility]) 2012 Pure hypercholesterolemia Snoring 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 Symptomatic menopausal or female climacteric states IN HER 50S 05/22 NORMAL BONE DENSITY Syncope Thyroid disease 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 Unspecified hemorrhoids without mention of complication Hemorrhoids Unspecified sleep apnea use CPAP SEVERAL YRS UTI (lower urinary tract infection) 2012 frequent SOCIAL HISTORY: Social History Tobacco Use Smoking status: Never Smokeless tobacco: Never Vaping Use Vaping Use: Never used Substance Use Topics Alcohol use: No Drug use: No FAMILY HISTORY: FAMILY HISTORY Problem Relation Age of Onset other ( age 59 MA) Mother hypertension and TB other (pancreatic cancer) Father Breast Cancer Sister diagnosed at age 53 Breast Cancer Maternal Aunt diagnosed postmenopausal Breast Cancer Other 2 maternal first cousins Breast Cancer Other maternal cousins Breast Cancer Other maternal great grandmother other (sinus cavity CA) Son other (myeloma) Brother other (healthy) Sister other (ovarian cancer) Sister paternal grandmother I have confirmed and edited as necessary, the PFSH and ROS obtained by others. Taty Argueta APRN.[facility] CURRENT MEDICATIONS: Current Outpatient Medications Medication Sig senna/docusate sodium (SENNA-C PLUS ORAL) Take 8.6 mg by mouth once daily. Acetaminophen 500 mg cap Take 1,000 mg by mouth as needed. guaiFENesin (ROBITUSSIN) 100 mg/5 mL syrup Take 200 mg by mouth every 4 hours as needed. FERROUS GLUCONATE ORAL Take 324 mg by mouth. estradiol (ESTRACE) 0.01 % (0.1 mg/gram) vaginal cream Apply a pea sized amount to the vaginal opening every 3 days Methenamine Hippurate (HIPREX) 1 gram tablet Take 1 tablet by mouth twice daily with meals. metoprolol succinate ER (TOPROL XL) 25 mg 24 hr tablet Take 1 tablet by mouth once daily. fluticasone (FLONASE) 50 mcg/actuation nasal spray Use 2 Sprays in each nostril once daily. levothyroxine (LEVOXYL) 25 mcg tablet Take 1 tablet by mouth once daily. Take on empty stomach. For Thyroid escitalopram oxalate (LEXAPRO) 10 mg tablet Take 1 tablet by mouth once daily. cetirizine (ZYRTEC) 10 mg tablet Take 1 tablet by mouth once daily. MULTIVITAMIN TAB Take 1 tablet by mouth once daily. shofsrm-vurmbsjgh-jhihzha D3 500 mg-5 mcg (200 unit) per tablet Take 1 tablet by mouth once daily. omeprazole (PRILOSEC) 40 mg capsule Take 1 capsule by mouth once daily. gabapentin (NEURONTIN) 600 mg tablet Take 0.5 tablets by mouth once daily. (Patient taking differently: Take 300 mg by mouth daily at bedtime.) No current facility-administered medications for this visit. documented in this encounter [facility] 04-08-2022 Note HNO ID: [id number] Author: Swetha Morrison RN Service: ? Author Type: Registered Nurse Type: Progress Notes Filed: 04/08/2022 11:41 AM Note Text: --- [facility] 04-08-2022 History of Present illness Narrative --- documented in this encounter [facility] 03-25-2022 Miscellaneous Notes Spoke with patients daughter and scheduled Called patients daughter to schedule, but she didn't have her calender. She will call back to schedule. Patient is aware of all information and verbalized understanding. PSS- patient is asking that you contact her daughter to schedule iron infusions, as she is the patient's transportation. Lisa Morales LPN Her hemoglobin was 7.7 g/dL on 03/04. She received it unit red blood cell transfusion on 03/05. A CBC done at [facility] on 03/07 Showed that the hemoglobin increased to 10.8 g/dL. It is the same on the recent CBC from Friday which is good. Previous lab testing suggested iron deficiency. Stool testing for a occult blood was negative and I think that is because she is now off Coumadin. So iron deficiency is the working diagnosis for now and I recommend she receive five doses of iron sucrose. Repeat CBC/reticulocyte count/iron studies/soluble transferrin receptor at the time of the fifth iron infusion. Sal Bonilla DO documented in this encounter [facility] 03-22-2022 Miscellaneous Notes PT scheduled Thank you. Order filed. Sal Bonilla DO Dr. Bonilla- please file new CBC order. PSS- please schedule patient for a lab/port appointment for 03/22/2022 @ 1:30 CBC(?TX)/STREV* No need to notify patient's daughter, she is aware of date and time. Lisa Morales LPN documented in this encounter [facility] 03-12-2022 Miscellaneous Notes Called and spoke with pt's daughter and scheduled as directed Noted. Thank you. Sal Bonilla DO Spoke to Eloisa, she will bring pt in for a lab port draw and pick up worker hemoccult cards at the desk (labeled and at nurses station for pick up worker when she comes in).PSS please reach our to Eloisa and schedule her lab port. Eloisa states she is no longer on coumadin stopped about 2 months ago for issues with bleeding and getting positive occult tests on and off. She states pt has had a history of bowel resection and would not want any more surgery. Anneliese Garcia LPN Left message on [employer] phone to call me back to review some of this information with her first. Anneliese Garcia LPN A review of her CBCs indicates her MCV has been trending lower. It was 104 in the fall 2020 and now is 82.7. She was on warfarin at least until October 2021. From the notes in it is difficult to know whether or not she was restarted on this medication at the shelter. Her iron levels were low when measured last June. Therefore, it would be best to start by ruling out iron deficiency anemia. I put in basic lab work and she will need to complete stool sample cards to rule out occult bleeding. Lets get this lab work and stool cards completed then we can decide on when or if she needs consultation for this. She may just need parenteral iron replacement and a work-up for GI bleeding. Sal Bonilla DO Per Angelic's Check Out Note, patient needs to be seen by Dr. Bonilla for an anemia work up as patient was previously seen by Dr. Bonilla. Dr. Bonilla - please advise how to schedule. Meredith Alonzo documented in this encounter [facility] 03-06-2022 History of Present illness Narrative Chief Complaint Patient presents with: Established Patient HPI: Christian Landrum is a 86 year old female who presents here today for follow up breast cancer. Per Dr. Bonilla's previous note: H/o underwent a left-sided simple mastectomy for a T2 N0 stage IIA hormone-receptor negative by IHC (positive by RT-PCR testing), HER-2 nonamplified breast cancer. Received 3 cycles of docetaxel and cyclophosphamide. Oncotype PCR suggested low level ER expression. Changed to exemestane due to severe b/l leg pain (trochanteric bursitis). Subsequently changed to tamoxifen 04/2010. CT A/P in 07/23 revealed new liver lesion which was not visualized on US. MRI demonstrated the lesion in anterior portion of right lobe of liver not typical appearance for hemangioma or FNH. PET scan was negative. Follow up MRI 10/23 showed the lesion to be stable. Diagnosed with polymyalgia rheumatica 2012. Completed aromasin/tamoxifen therapy 2012. Recently dx with new right sided primary breast cancer. Was found to have non-palpable abnormality on right sided screening mammogram. 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 Stains for both estrogen and progesterone receptors were positive (greater than 95% for both; strong for ER, moderate for ND). HER-2 3+. Had been using Estrace cream to help control symptoms of vaginal atrophy and recurrent UTIs. Underwent right mastectomy with SLN biopsy 08/29/2015. Pathology: A. Right axillary sentinel lymph node #1, excision: - Three lymph nodes negative for malignancy (0/3). B. Right breast, mastectomy: - Invasive ductal carcinoma, see synoptic report. - Atypical lobular hyperplasia. - Large hemorrhagic, organizing biopsy site. - Apocrine cysts, adenosis and stromal fibrosis. - Nipple with no pathologic change. C. Right axillary sentinel lymph node #2, excision: - One lymph node, negative for malignancy (0/1). SYNOPTIC REPORT OF [facility] RIGHT BREAST MASTECTOMY: Part: B Specimen Laterality: Right Procedure: Total mastectomy (including nipple and skin) Wire Localization: Wire absent Lymph Node Sampling: [place] lymph node(s) Tumor size: Size of largest invasive carcinoma: Greatest dimension of largest focus of invasion >1 mm: 8 mm Tumor Focality: Single focus of invasive carcinoma Macroscopic-Microscopic Extension of tumor: Skin: Uninvolved Nipple: Uninvolved Skeletal muscle: Not applicable Invasive Carcinoma Margins: Margins uninvolved by invasive carcinoma Distance from closest margin: 20 mm Closest Uninvolved Margin:Deep DCIS Margins: Margins uninvolved by DCIS (DCIS present) Distance from closest margin: 20 mm Closest Uninvolved Margin:Deep Histologic Type of Invasive Carcinoma: Invasive ductal carcinoma (no special type or not otherwise specified) Histologic Grade: Glandular (Acinar) / Tubular Differentiation: Score 2 Nuclear Pleomorphism: Score 3 Mitotic Rate: Score 1 Overall Grade: Grade II Lymph-Vascular Invasion: Not identified Ductal Carcinoma In Situ: DCIS is present Architectural Pattern:Cribriform DCIS Nuclear Grade: Grade III (high) DCIS Necrosis: Present, focal (small foci or single cell necrosis) Lymph Nodes: Total number of nodes examined (sentinel and nonsentinel): 4 Number of sentinel lymph nodes examined: 4 Number of lymph nodes with macrometastases (>2 mm): 0 Number of lymph nodes with micrometastases (>0.2 mm to 2 mm and/or >200 cells): 0 Number of lymph nodes with isolated tumor cells (<= 0.2 mm and <= 200 cells): 0 TNM Descriptor(s): Not applicable Primary Tumor (Invasive Carcinoma) (pT): pT1b Regional Lymph Nodes (pN): Modifier: (sn) Category (pN): pN0 Distant metastasis: Not Applicable Completed 5 years tamoxifen therapy. S/p underwent hysteroscopy D&C at [facility] on 08/23/[address] Hebert. Path. Benign. Pt. now resides at [facility]. Labs have been monitored there. She received two units of blood today. Has been receiving blood transfusions since September. Pt. here today with her daughter. Appetite: Good. Energy level: Bad. Denies fevers or recent illness. Resp:denies cough or sob, occ jennings-followed by PULM-using bi-pap, h/o allergies Cardiac:denies chest pain/palpitations h/o A.fib. GI:denies abd pain (H/o IBS, colitis), n/v, moving bowels regularly :denies dysuria/hematuria-chronic UTI-followed by Urology Extrem:h/o RA, joint pain dx in her 40's -followed by Rheum-off of methotrexate-takes tylenol as needed Endo:denies hot flashes Neuro:+neuropathy to feet-stable Skin:denies rashes/lesions Heme:denies bleeding since visit with VOCATIONAL PSYCHOLOGIST The ROS is otherwise negative. Past medical history, appointments, medications, allergies reviewed. No changes. EXAM: BP 119/57 Pulse 72 Temp 36.2 C (97.1 F) Wt 76.4 kg (168 lb 8 oz) SpO2 100% BMI 27.20 kg/m APPEARANCE frail appearing, alert, in no acute distress, well-hydrated, well nourished. HEART RRR with normal S1 and S2, no murmurs LUNG clear to auscultation BREAST b/l mastectomy scars, no nodule LYMPH NODES No cervical lymphadenopathy, No supraclavicular lymphadenopathy, and No axillary lymphadenopathy. ABDOMEN bowel sounds normoactive, soft, non-tender EXTREMITIES No edema NEURO Awake, alert and oriented x 3, Normal gait, and No involuntary motions. SKIN Skin color, texture, turgor normal, no suspicious rashes or lesions ASSESSMENT/PLAN: 1. 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 H/o Stage IIA left sided breast cancer. Received 3 cycles of TC. Completed 5 years' worth of AI/tamoxifen. - Over the past several months has been receiving blood transfusions-Hgb 6.2. Seems to occur every 2 months. Last EGD fall 2020. - Tolerated tamoxifen well. - Completed 5 years tamoxifen 2021. - Continue follow up with her specialists. - Needs port flushes monthly. - Pt. needs anemia consult soon-Previous pt. of Dr. Bonilla. - Pt. aware to call office any questions/concerns. The patient indicates understanding of these issues and agrees with the plan. All documentation from previous visit of 09/18/21-Dr. Bonilla/myself was copied and pasted, documentation has been reviewed and edited as necessary for today's visit. Angelic Arreola APRN.MIMEOGRAPHER documented in this encounter [facility] 02-05-2022 History of Present illness Narrative Patient is here for IVAD port flush per [facility] protocol. IVAD is located in right upper chest. Site cleansed with Chloraprep IVAD accessed with a #20 gauge 3/4 non-coring Gripper needle Blood Return: Good Flushed with: 20 ml Normal Saline and 5 ml Heparin Lock Flush Non-coring needle removed. Paper tape applied to puncture site. Port site negative for redness, edema or tenderness. Patient tolerated procedure well. documented in this encounter [facility] 01-21-2022 History of Present illness Narrative Associated Order(s): Large Joint Arthro/Inj: R knee joint Post-Procedure Diagnose(s): Primary osteoarthritis of both knees; Chronic pain of right knee Stella Casper PA-C Department of Orthopaedics Orthopaedics [address] [facility] [address] Dept: [phone] Dept January 21, 2022 CHIEF COMPLAINT: Established Patient of the Left Knee, Established Patient of the Right Knee, and Last seen 11/09/20 S/P Left ring trigger finger release (09/14 Ms. Christian Landrum is a 86 year old female who presents with bilateral knee pain R>L for about the past few months. Pain is mostly anterior, worse with increased activity, she has been participating in physical therapy to work on her balance. She believes this may be irritating her knee pain. She has rheumatoid arthritis, she had to discontinue her methotrexate about 1 year ago, she notes some increased knee pain since discontinuing the medication. She recalls having injections in her knee years ago, found them to be very helpful. She has anemia of unknown origin so cannot tolerate oral NSAIDs. She is residing in an assisted living. ASSESSMENT: M17.0 Primary osteoarthritis of both knees (primary encounter diagnosis) M25.561, G89.29 Chronic pain of right knee PLAN: She has bilateral knee osteoarthritis, right knee seems to be affecting her most today and she would like to try a right knee corticosteroid injection today. We discussed a topical anti-inflammatory such as Voltaren and also moist heat to help with knee pain. She can follow-up anytime if she would like to try a left knee corticosteroid injection as well. Patient agrees to plan. Ms. Christian Landrum was advised as to contrast therapies and/or to take analgesics/anti-inflammatories as needed and all contraindications were reviewed. OBJECTIVE: Ms. Christian Landrum is a pleasant 86 year old in no apparent distress. Gen:There were no vitals taken for this visit. nl development, non obese, no deformities ENT: Normocephalic, normal hearing, moist mucosa CV: Pulses:DP/PT= 2+ and symmetric, capillary refill < 2 secs, no peripheral edema/varicosities Skin: no rash, bruising or lesions. Good turgor. Psych: cooperative and appropriate, alert and oriented x 3, good mood and affect. Musculoskeletal: KNEE EXAM: Right: Alignment: Neutral Range of motion is lacking a few degrees secondary to tight hamstrings degrees in extension and 110 degrees of flexion. Extension Lag: < 10 degrees Pain with ROM: Yes Effusion: Slight Tender to the palpation of Posterior Knee, Medial femoral condyle, and Medial joint line Pain with patellar compression: No Stability: Anterior/Posterior stable and Varus/Valgus stable Hip Exam: flexion to 100+ degrees, full extension, internal/external rotation adequate, and no pain with log roll Neurovascular Status: Sensation Intact, Moves foot and ankle up & down, and 2+ dorsalis pedis Large Joint Arthro/Inj: R knee joint Informed Consent Consent Obtained: Verbal [place] Protocol A moment to CARE was completed. SIGN IN Sign in communication not applicable due to emergent procedure. Personnel directly involved with the procedure wore the appropriate PPE. Special Equipment: N/A Patient/Surrogate Stated/Verified: Patient name, Date of , Relevant allergies and Intended procedure TIME OUT Intended patient and procedure match the source document(s). Consent documented and matches the intended procedure. Relevant labs, photos, and/or imaging studies have been reviewed. Correct side/site marked and visible. Medications required for procedure verified. No fire risk assessment and interventions applicable. No implant(s) inserted. 01/21/2022 2:59 PM The procedure site was prepped in the usual sterile fashion. Site: R knee joint Medications: 6 mg betamethasone acetate-betamethasone sodium phosphate 6 mg/mL Anesthetics: 5 mL lidocaine (PF) 10 mg/mL (1 %) Outcome: Tolerated well, no immediate complications Post-injection instructions were reviewed with the patient and the patient voiced understanding of these instructions. SIGN OUT Post-procedure follow-up management communicated and Plan of Care Visit completed when applicable Imaging: IMPRESSION: Bilateral knee osteoarthritis with interval progression as described. Air Support Control Officer: PSCYanelis Transcribe Date/Time: Jul 09 2021 7:03P Dictated by : ALDEN AWAD MD This examination was interpreted and the report reviewed and electronically signed by: ALDEN AWAD MD on Jul 09 2021 7:06PM EST Results-Findings * * *Final Report* * * DATE OF EXAM: Jul 09 2021 6:16PM BECKY [id number] - XR KNEE 4V AP/PA/LAT/[facility] / PROCEDURE REASON: Bone pain, knee * * * * Physician Interpretation * * * * EXAMINATION: XR KNEE 4V AP/PA/LAT/[facility] HISTORY: Bone pain, knee. TECHNIQUE: XR KNEE 4V AP/PA/LAT/[facility] Laterality: Bilateral Number of different views (projections): 4 views each M: XB_1 COMPARISON: 08/16/2015 RESULT: Mild to moderate narrowing of the medial joint compartments greater on the left, slightly progressed. Moderate to severe right and mild left lateral joint compartment narrowing. Bilateral medial and patellofemoral osteophytosis. No acute fracture or dislocation. Small effusions bilaterally. No other significant abnormality. Supporting Subjective Information Below: Past Surgical History: PAST SURGICAL HISTORY Procedure Laterality Date ABDOMINAL SURGERY HX APPENDECTOMY 1982 ovarian cyst at same time-one ovary removed right APPENDECTOMY BIOPSY BREAST OPEN INCISIONAL left breast twice BREAST LEFT FINE NEEDLE ASPIRATION left breast BREAST SURGERY HX BX BREAST NEEDLE CORE W/O IMAGING GUIDANCE SPX 06/24/2007 left breast BX BREAST W/DEVICE 1ST LESION STEREOTACTIC GUID 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, DCIS, LCIS BX/EXC LYMPH NODE OPEN DEEP AXILLARY NODE Right COLECTOMY PART W/CECOSTOMY 08/08/2009 sigmoid colectomy COLON SURGERY HX COLONOSCOPY FLX DX W/COLLJ SPEC WHEN PFRMD 04/19/2003 Colonoscopy COLONOSCOPY FLX DX W/COLLJ SPEC WHEN PFRMD 11/03/2014 Colonoscopy COLONOSCOPY FLX DX W/COLLJ SPEC WHEN PFRMD 11/15/2019 Colonoscopy COLONOSCOPY FLX DX W/COLLJ SPEC WHEN PFRMD 01/09/2021 repeat in 6 months COLONOSCOPY W/BIOPSY SINGLE/MULTIPLE 03/23/2010 Clean anastamosis at 15cm few right and lef sided diverticula COLSC FLX W/REMOVAL LESION BY HOT BX FORCEPS 04/27/2007 tubular adenoma COLSC FLX W/REMOVAL LESION BY HOT BX FORCEPS 09/28/2008 small polyp in cecum and 40cm, diverticulosis ESOPHAGOGASTRODUODENOSCOPY TRANSORAL DIAGNOSTIC 01/09/2021 HYSTEROSCOPY BX ENDOMETRIUM&/POLYPC W/WO D&C 08/23/2021 D&C for PMB INCISE FINGER TENDON SHEATH Right 06/28/2020 Right ring and little trigger finger releases INCISE FINGER TENDON SHEATH Left 09/28/2020 Left ring trigger finger release INSJ TUNNELED CTR VAD W/SUBQ PORT AGE 6 YR/> 10/06/2007 Right Subclavian MASTECTOMY, SIMPLE, COMPLETE 08/04/2007 left breast with SLND/ALND MASTECTOMY, SIMPLE, COMPLETE Right 08/29/2015 right mastectomy with SLND PAST SURGICAL HISTORY OF bilat CTR, had endometrial bx 2004 PAST SURGICAL HISTORY OF 12/2011 removal of lesion of Lt eyelid PAST SURGICAL HISTORY OF 1982 Rt ovary removed PAST SURGICAL HISTORY OF 01/03/2017 breast surgery REMOVE TONSILS/ADENOIDS,<12 Y/O SALPINGO-OOPHORECTOMY COMPL/PRTL UNI/BI SPX 08/08/2009 left Salpingo-oophorectomy SHAVING SKIN LESION 1 S/N/H/F/G DIAM 0.6-1.0 CM 09/2017 squamous cell SKIN BIOPSY HX TONSILLECTOMY HX TONSILLECTOMY PRIMARY/SECONDARY <AGE 12 1945 Tonsillectomy Medications: Current Outpatient Medications Medication Sig estradiol (ESTRACE) 0.01 % (0.1 mg/gram) vaginal cream Apply a pea sized amount to the vaginal opening every 3 days Methenamine Hippurate (HIPREX) 1 gram tablet Take 1 tablet by mouth twice daily with meals. metoprolol succinate ER (TOPROL XL) 25 mg 24 hr tablet Take 1 tablet by mouth once daily. jadsnzi-yqrrtyaik-ieurivw D3 500 mg-5 mcg (200 unit) per tablet Take 1 tablet by mouth once daily. furosemide (LASIX) 20 mg tablet Take 1 tablet by mouth every other day in the morning. omeprazole (PRILOSEC) 40 mg capsule Take 1 capsule by mouth once daily. fluticasone (FLONASE) 50 mcg/actuation nasal spray Use 2 Sprays in each nostril once daily. levothyroxine (LEVOXYL) 25 mcg tablet Take 1 tablet by mouth once daily. Take on empty stomach. For Thyroid escitalopram oxalate (LEXAPRO) 10 mg tablet Take 1 tablet by mouth once daily. gabapentin (NEURONTIN) 600 mg tablet Take 0.5 tablets by mouth once daily. (Patient taking differently: Take 300 mg by mouth daily at bedtime.) docusate sodium (COLACE) 100 mg capsule Take 1 capsule by mouth twice daily as needed for Constipation. cetirizine (ZYRTEC) 10 mg tablet Take 1 tablet by mouth once daily. MULTIVITAMIN TAB Take 1 tablet by mouth once daily. predniSONE (DELTASONE) 5 mg tablet Take 1 tablet by mouth once daily. (Patient not taking: Reported on 01/21/2022) MEDICAL SUPPLY Zippered compression stockings.- 1 pair. warfarin (COUMADIN) 1 mg tablet 2 mg every Tu; 1 mg all other days (Patient not taking: Reported on 01/02/2022) diclofenac sodium (VOLTAREN) 1 % topical gel Apply 4 g to affected area as needed. (Patient not taking: Reported on 01/21/2022) triamcinolone acetonide (NASACORT AQ) 55 mcg nasal inhaler Use 2 Sprays in the nose once daily. (Patient taking differently: Use 2 Sprays in the nose once daily as needed.) No current facility-administered medications for this visit. Allergies: Clindamycin, Keflex [Cephalexin], Naprosyn [Naproxen], Desmond Inhibitors, Adhesives [Other], Arthrotec 50 [Diclofenac-Misoprostol], Blephamide [Sulfacetamide-Prednisolone], Ditropan [Oxybutynin], Flagyl [Metronidazole Hcl], Flexeril [Cyclobenzaprine], Hctz [Hydrochlorothiazide], Naproxen Sodium, Paxil [Paroxetine], Sulfa (Sulfonamide Antibiotics), and Zestril [Lisinopril] ROS: General (negative for fatigue, malaise, weight loss/gain) HEENT (negative for headache, earache, recent vision changes, sinus pain, sore throat) Respiratory (no recent shortness of breath, hemoptysis) CV (negative for chest tightness, palpitations) Musculoskeletal (see HPI) Psych (no depression, anxiety) This note was partially generated using [employer] voice recognition system, and there may be some incorrect words, spellings, and punctuation that were not noted in checking the note before saving. Stella Casper PA-C Patient presents with: Left Knee - Established Patient Right Knee - Established Patient Last seen 11/09/20 S/P Left ring trigger finger release (09/14 AMB ROOMING INTAKE FLOWSHEET DATA Risk Screening Do you have concerns about personal safety or safety in the home?: No Pain Pain Level: (7 - Right knee, 3 - Left knee) Pain Location: (Bilateral knees) Description: Aching Duration Amount of Time: 9 Duration Units: Months Frequency: Continuous Intervention/Comfort measure: Medication Patient states she is having bilateral anterior and posterior knee pain. No recent injury. Taking Tylenol for the and does help take the edge off. X-rays done on 07/09/21. Daughter Eloisa with patient today. documented in this encounter [facility] 01-02-2022 Note HNO ID: [id number] Author: Basilia Hernández MD Service: ? Author Type: Physician Type: Progress Notes Filed: 01/02/2022 2:12 PM Note Text: Female Pelvic Medicine AND Reconstructive Surgery Follow-Up Christian Landrum is a 86 year old female, who presents for a follow-up of recurrent UTI. Last visit 09/26/21: 1. Recurrent UTI - Continue vaginal estrogen - Discussed D-mannose - Start Hiprex - Referral to ID given h/o ESBL UTIs - CONSULT TO INFECTIOUS DISEASES; Future - URINE CULTURE; Standing for future symptoms - Methenamine Hippurate (HIPREX) 1 gram tablet; Take 1 tablet by mouth twice daily with meals. Dispense: 180 tablet; Refill: 3 2. History of ESBL E. coli infection - CONSULT TO INFECTIOUS DISEASES; Future 3. Mixed stress and urge urinary incontinence - Lifestyle and behavioral modifications to reduce urinary incontinence symptoms were reviewed and discussed. History since last visit: Had issues with bleeding and anemia due to interaction between Hiprex and coumadin. Required transfusion. Now off coumadin. Was on for Afib. No UTIs since last visit. No new urine cultures Urinary Incontinence: yes, ISRA Voiding Dysfunction: no Urinary Frequency: no Urinary Urgency: yes, Prolapse Symptoms: no Defecatory Dysfunction: no Fecal Incontinence: no Abnormal Bleeding: yes, blood in stool Pain: no Abnormal Vaginal Discharge: no VOCATIONAL PSYCHOLOGIST HISTORY: Last Pap: Date:04/18/20 NIL; Last Mammogram: Her last mammogram was 2015 . She has a previous history of an abnormal mammogram with breast cancer diagnosed in 2007 and 2015. LMP: No LMP recorded. Patient is postmenopausal.; Menopause post: Menstrual history: NA; Deliveries: 3 x I have confirmed and edited as necessary, the PFSH obtained by others. Basilia Hernández MD OBJECTIVE: BP 126/62 Ht 5' 6 (1.68m) Wt 165 lb (74.8kg) BMI 26.64 kg/(m2). General: Well appearing, alert, in no acute distress, well-hydrated, well nourished. Urine dip neg Impression: Christian Landrum is a 86 year old female with recurrent UTI, h/o ESBL, vaginal estrogen. Plan: 1. Recurrent UTI - Continue Hiprex, vaginal estrogen cream - estradiol (ESTRACE) 0.01 % (0.1 mg/gram) vaginal cream; Apply a pea sized amount to the vaginal opening every 3 days Dispense: 42.5 g; Refill: 2 2. History of ESBL E. coli infection - s/p ID consult 3. Vaginal atrophy - estradiol (ESTRACE) 0.01 % (0.1 mg/gram) vaginal cream; Apply a pea sized amount to the vaginal opening every 3 days Dispense: 42.5 g; Refill: 2 Medical Decision Making: Problems: Moderate: 2+ stable chronic illnesses Data: Unique test result(s) reviewed: 1 Risk: Moderate: Drug management Medical Decision Making Level: 4 - Moderate Basilia Hernández MD [facility] 01-02-2022 Instructions Basilia Hernández MD - 01/02/2022 2:08 PM EDT Follow up with Vikash Sylvester NP in 6 months or sooner as needed documented in this encounter [facility] 01-02-2022 History of Present illness Narrative Female Pelvic Medicine & Reconstructive Surgery Follow-Up Christian Landrum is a 86 year old female, who presents for a follow-up of recurrent UTI. Last visit 09/26/21: 1. Recurrent UTI - Continue vaginal estrogen - Discussed D-mannose - Start Hiprex - Referral to ID given h/o ESBL UTIs - CONSULT TO INFECTIOUS DISEASES; Future - URINE CULTURE; Standing for future symptoms - Methenamine Hippurate (HIPREX) 1 gram tablet; Take 1 tablet by mouth twice daily with meals. Dispense: 180 tablet; Refill: 3 2. History of ESBL E. coli infection - CONSULT TO INFECTIOUS DISEASES; Future 3. Mixed stress and urge urinary incontinence - Lifestyle and behavioral modifications to reduce urinary incontinence symptoms were reviewed and discussed. History since last visit: Had issues with bleeding and anemia due to interaction between Hiprex and coumadin. Required transfusion. Now off coumadin. Was on for Afib. No UTIs since last visit. No new urine cultures Urinary Incontinence: yes, ISRA Voiding Dysfunction: no Urinary Frequency: no Urinary Urgency: yes, Prolapse Symptoms: no Defecatory Dysfunction: no Fecal Incontinence: no Abnormal Bleeding: yes, blood in stool Pain: no Abnormal Vaginal Discharge: no VOCATIONAL PSYCHOLOGIST HISTORY: Last Pap: Date:04/18/20 NIL; Last Mammogram: Her last mammogram was 2015 . She has a previous history of an abnormal mammogram with breast cancer diagnosed in 2007 and 2015. LMP: No LMP recorded. Patient is postmenopausal.; Menopause post: Menstrual history: NA; Deliveries: 3 x I have confirmed and edited as necessary, the PFSH obtained by others. Basilia Hernández MD OBJECTIVE: BP 126/62 Ht 5' 6 (1.68m) Wt 165 lb (74.8kg) BMI 26.64 kg/(m^2). General: Well appearing, alert, in no acute distress, well-hydrated, well nourished. Urine dip neg Impression: Christian Landrum is a 86 year old female with recurrent UTI, h/o ESBL, vaginal estrogen. Plan: 1. Recurrent UTI - Continue Hiprex, vaginal estrogen cream - estradiol (ESTRACE) 0.01 % (0.1 mg/gram) vaginal cream; Apply a pea sized amount to the vaginal opening every 3 days Dispense: 42.5 g; Refill: 2 2. History of ESBL E. coli infection - s/p ID consult 3. Vaginal atrophy - estradiol (ESTRACE) 0.01 % (0.1 mg/gram) vaginal cream; Apply a pea sized amount to the vaginal opening every 3 days Dispense: 42.5 g; Refill: 2 Medical Decision Making: Problems: Moderate: 2+ stable chronic illnesses Data: Unique test result(s) reviewed: 1 Risk: Moderate: Drug management Medical Decision Making Level: 4 - Moderate Basilia Hernández MD documented in this encounter [facility] 12-25-2021 Miscellaneous Notes Galina Castro [employer] called regarding patient's Coumadin, has been having anemia and bloody stool. Asking if Coumadin can be held/stopped temporarily. Coumadin has been ordered by PCP, not cardiology office. Spoke with [employer] TE[employer]ER, explained Dr. Ibarra was not managing patient's Coumadin. H[employer] TE[employer]ER stated patient is no longer seeing Dr. Sainz and has new PCP; requesting orders from Dr. Ibarra. Advised H[employer] TE[employer]ER to follow up with new PCP/physician managing Coumadin. Per Dr. Ibarra's notes, anemia has been chronic issue. documented in this encounter [facility] 11-13-2021 History of Present illness Narrative Patient is here for IVAD port flush per [facility] protocol. IVAD is located in right upper chest. Site cleansed with Chloraprep IVAD accessed with a #20 gauge 3/4 non-coring Gripper needle Blood Return: Good Flushed with: 20 ml Normal Saline Non-coring needle removed. Paper tape applied to puncture site. Port site negative for redness, edema or tenderness. Patient tolerated procedure well. documented in this encounter [facility] 11-05-2021 Miscellaneous Notes noted PATIENT CALL Patient's daughter called and stated they will no longer need to come in for PT/INR checks as patient has been off warfarin/may remain off warfarin and is also moving to an assisted living facility that will check her INR if she is started back on warfarin in the future. Pharmacy Anticoagulation Clinic Discharge completed at this time. Patient may be re-referred, if deemed appropriate. Maria A Camacho; marine designer ([employer]) Pharmacy Anticoagulation Clinic documented in this encounter [facility] 11-02-2021 Miscellaneous Notes Noted. An Ta APRN.CNP Patient daughter Gia returned call and said her mother is at [facility] and Dr Alejo Salcido is taking over as provider. She had hemoglobin of 6 a few weeks ago and had 2 units blood. She has not been off coumadin since transfusion was given. They are not going to do any more procedures on mother, not sure where she is bleeding from. She has stopped her methotrexate also. She is going to let Dr Salcido monitor her INR. Cancelled appt with Dr Sainz for next week also as requested. . Left message on daughter's VM for return call. Hgb is 8.5. When was last INR drawn? If not within the last few days, please get this drawn. Are there any signs or symptoms of bleeding? If not she can restart coumadin at previous dosing. Also recheck cbc next week. Thank you An Ta APRN.CNP Please place fax on providers desk when received. Thank you An Ta APRN.CNP Spoke with nurse from Assisted living and they are faxing over the blood work that was drawn today which included a CBC. Also, sending them med list for this patient Awaiting fax from assisted living. Nury Guerin LPN Staff, Do we have a recent cbc on patient.? If not I would like the assisted living to draw cbc for patient and check her cbc Orders are being placed Received call from Ludivina MERCADO with [facility]. Patient was admitted to facility today. Ludivina asking for clarification on when patient should resume Coumadin and dosage as well as when next INR needs to be drawn. Ludivina requests orders be faxed to [phone] or called to [phone]. Ludivina requested updated medication list be faxed. Faxed per request. Please review and advise, Una Garcia RN Spoke to patient. She is staying with her daughter. She is currently off warfarin and waiting for call back from Dr. Sainz with instructions on when to resume. Called patient and left VM to call PAC at [phone]. Is she is Assisted Living facility? documented in this encounter [facility] 10-18-2021 Miscellaneous Notes Patient currently being seen in [facility] ER. Please get update from daughter on how patient is feeling, and if they heard back from [facility]. Thank you An Ta APRN.INGE Patient daughter Eloisa calling mother woke up with fever 100.5 this morning. She was having body aches yesterday. She is scheduled for blood transfusion today at [facility] her hemoglobin is 6.5 and daughter has called transfusion center at [facility] and left message. Eloisa did home COVID test and mother was positive. documented in this encounter [facility] 10-17-2021 Miscellaneous Notes Christian Landrum was called for anticoagulation follow-up. PT INR (no units) Date Value 10/16/2021 2.1 (biotel) 10/13/2021 4.8 06/06/2021 3.1 (biotel) INR (no units) Date Value 10/16/2021 1.9 INR Home CoaguChek (no units) Date Value 10/13/2021 3.8 10/02/2021 2.9 09/19/2021 2.2 Called pt and LM. Spoke to Eloisa her daughter. Due to low Hgb, she is getting a transfusion at [facility]. She said the patient will be at an assisted living starting on 10/22. If she starts back on warfarin then they may manage it. Eloisa said that pt's warfarin is still on hold. She asked that we check back next week on her status. Jerrica Rothman PharmD Pharmacy Anticoagulation Clinic I can call the patient re: INR (as we typically do) but is she to hold warfarin for now? Per note below from our pharmacist Tesha. Jerrica Rothman PharmD Pharmacy [facility]tico[facility] Clinic Please address INR from today see below notes from pharmacist. Nury Guerin LPN Pts daugher called and reports she was notified of providers results and instructions. She voices understanding and is taking her mother to the hospital to get the type and cross done now. Maria A Khanna RN Spoke with patient about instructions and left message with daughter about instructions for blood transfusion. Patient is wanting to know instructions for coumadin since it is 2.1 now? Blood tranfusion orders faxed to [facility] Please review and advise. Nury Guerin LPN INR yesterday (10/16) was 2.1 via Biotel. We will have to transfuse 2 units of RBcs to patient Please get the forms for [facility] and inform patient of the same Called and stp- per Dr. Sainz pt to hold off on warfarin. Pt's Hgb was 6.5 today, will reach out to Dr. Sainz for clarification on resuming anticoag Tesha Arias PharmD documented in this encounter [facility] 10-17-2021 Miscellaneous Notes Soraya with [facility] Marge called and states pt is coming in for a cross and type. Identified pt with name and date of . Requested a copy of last H & H, faxed CBC to [phone]. Ramila Castro LPN documented in this encounter [facility] 10-15-2021 Miscellaneous Notes Patient daughter notified of instructions. Nury Guerin LPN Check inr when patient comes in tomorrow for port flush along with checking cbc. If she needs to take the hiprex we will have to titrate her coumadin accordingly and she should be able to continue the coumadin Daughter Eloisa called with the followin. Friday10-13-21 was trimming toe nails and melissa pt and she started to bleed. Took 24 hours to get stopped. INR was checked by pt on 10-13-21 and it was 3.8. Daughter instructed pt to stop her coumadin. Instruct on this. 2. Daughter states pt has anemia hgb has been 8. Daughter states CBC has not been checked for a while and pt is coming in for a port flush tomorrow 10-16-21 and daughter would like pt to have a CBC done to see where pt is. Pt is pale, dizzy when she gets up may be due to the low blood count per daughter. Start with checking her blood count . They are not going to put pt thru any further surgeries but trying to keep her comfortable. Need orders. 3. Pt was put on medication for chronic UTIs Hiprex and needs to take this. Not sure if this is causing the blood to thin more. Again daughter stresses pt needs to take this medication. Advice. 4. Moving pt to [facility] 10-22-21. Please advise daughter on cell phone or send a teams message Gia Ford ([facility])on teams. documented in this encounter [facility] 10-15-2021 Miscellaneous Notes [facility] Ambulatory Pharmacy Anticoagulation Clinic Anticoagulation Episode Summary Anticoagulation Care Providers Provider Role Specialty Phone number Ariel Sainz MD [facility] Internal Medicine [phone] Christian Landrum is a 86 year old year old female patient being evaluated today for a Telemanagement visit. Patient is currently on the following anticoagulant(s) Warfarin. Labs PT INR (no units) Date Value 10/13/2021 4.8 06/06/2021 3.1 (biotel) 05/23/2021 2.5 (biotel) INR Home CoaguChek (no units) Date Value 10/13/2021 3.8 10/02/2021 2.9 09/19/2021 2.2 Estimated Creatinine Clearance: 58.4 mL/min (based on SCr of 0.74 mg/dL). ALLERGIES Allergen Reactions Clindamycin Other: See Comments, Contraindication-Medical Surgical Should not be prescribed due to past history of c diff Keflex [Cephalexin] Other: See Comments, Contraindication-Medical Surgical Patient states this caused C diff Naprosyn [Naproxen] Other: See Comments bleeding Desmond Inhibitors Cough Adhesives [Other] Other: See Comments Local skin reaction with skin tears Arthrotec 50 [Diclo* Diarrhea Blephamide [Sulface* Cough Ditropan [Oxybutyni* Other: See Comments Severe dryness of nasal passages, bleeding from the nose, constipation and sneezing Flagyl [Metronidazo* Mental Status Change, Shortness of Breath Anxiety Flexeril [Cyclobenz* Contraindication-Medical Surgical urinary urgency Hctz [Hydrochloroth* Mental Status Change felt strange Naproxen Sodium Contraindication-Medical Surgical GI Bleeding Paxil [Paroxetine] Contraindication-Medical Surgical urinary urgency Sulfa (Sulfonamide * Unknown Zestril [Lisinopril] Indication for Warfarin: Anticoagulation Episode Summary Current INR goal: 2.0-3.0 Assessment: INR result of 4.8 is SUPRAtherapeutic due to: No obvious cause Patient reports that her INR was actually 4.8, that she made an error reporting result. Patient reports that she injured her toe on Friday and that it has been bleeding off and on since then - advised patient to call PCP or go to ED for evaluation. Plan: Current Warfarin Dosing As of 10/15/2021 Full warfarin instructions: 10/15: Hold; Otherwise 2 mg every Tue; 1 mg all other days Called and spoke to patient/caregiver Patient reports that she held her dose yesterday - advised patient to hold warfarin again today, and recheck INR tomorrow. Next INR check due on 10/16/2021 Patient verbalizes understanding of the plan. Vito Jay RPh Clinical Pharmacist, [facility] Pager: [phone]. documented in this encounter [facility] 10-11-2021 History of Present illness Narrative Consultation requested by Dr. Basilia Hernández MD for an opinion regarding recurrent UTI. My final recommendations will be communicated back to the requesting physician by way of shared medical record or letter via US mail HPI 86 yr old woman H/o breast cancer, sp chemo, mediport still in place Cirrhosis, rheumatic heart disease Hep B Core Ab + H/o C diff x2 in the past, most recent approx 6 yrs Recurrent UTI, mixed stress and urgency urinary incontinence. Referred from UroGyn Vaginal estrogen pea sized amount 3x/week resumed 09/26/21 (had been off for a couple of months because of bleeding) Methenamine also started 09/26/21 PVR 27 mL measured on 09/26/21 Urine cxs: 03/27/21 - citrobacter 07/06/21 - e coli (easton susceptible) 08/11/21 - ESBL e coli 08/12/21 - ESBL e coli 08/30/21 - ESBL e coli. macrobid susceptible. 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 This was patent and was characterized by healthy appearing mucosa. The anastomosis was traversed. - A few medium-mouthed diverticula were found in the descending colon. - The exam was otherwise without abnormality. - Six medium polyps in the transverse colon and in the ascending colon, removed with a cold snare. D&C at [place] a month or two ago for uterine polyp Currently no UTI symptoms 09/26/[address] abd 07/03/21 reviewed - no hydro, but small bowel seems stuck up against bladder (93/122) ROS - A complete ROS was performed and all others are negative. PAST MEDICAL HISTORY Diagnosis Date Abdominal pain, left lower quadrant long standing Arrhythmia Arthritis Asthma Atrial fibrillation (HCC) 2009 Atrophic vaginitis Benign neoplasm of colon C. 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, estrogen receptor positive (HCC) 06/03/2017 Mitral valve disorders(424.0) and irregular heartbeat on occasion stress related Mixed stress and urge urinary incontinence Osteoarthrosis, unspecified whether generalized or localized, other specified sites 07/22 vit D 41 Other diseases of pharynx, not elsewhere classified(478.29) Other extrapyramidal disease and abnormal movement disorder PMH - PAST MEDICAL HISTORY OF benign mass on liver PMR (polymyalgia rheumatica) (HCC) 2012 Pure hypercholesterolemia Snoring 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 Symptomatic menopausal or female climacteric states IN HER 50S 05/22 NORMAL BONE DENSITY Syncope Thyroid disease 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 Unspecified hemorrhoids without mention of complication Hemorrhoids Unspecified sleep apnea use CPAP SEVERAL YRS UTI (lower urinary tract infection) 2012 frequent PAST SURGICAL HISTORY Procedure Laterality Date ABDOMINAL SURGERY HX APPENDECTOMY 1983 ovarian cyst at same time-one ovary removed right APPENDECTOMY BIOPSY BREAST OPEN INCISIONAL left breast twice BREAST LEFT FINE NEEDLE ASPIRATION left breast BREAST SURGERY HX BX BREAST NEEDLE CORE W/O IMAGING GUIDANCE SPX 06/24/2007 left breast BX BREAST W/DEVICE 1ST LESION STEREOTACTIC GUID 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, DCIS, LCIS BX/EXC LYMPH NODE OPEN DEEP AXILLARY NODE Right COLECTOMY PART W/CECOSTOMY 08/08/2009 sigmoid colectomy COLON SURGERY HX COLONOSCOPY FLX DX W/COLLJ SPEC WHEN PFRMD 04/19/2003 Colonoscopy COLONOSCOPY FLX DX W/COLLJ SPEC WHEN PFRMD 11/03/2014 Colonoscopy COLONOSCOPY FLX DX W/COLLJ SPEC WHEN PFRMD 11/15/2019 Colonoscopy COLONOSCOPY FLX DX W/COLLJ SPEC WHEN PFRMD 01/09/2021 repeat in 6 months COLONOSCOPY W/BIOPSY SINGLE/MULTIPLE 03/23/2010 Clean anastamosis at 15cm few right and lef sided diverticula COLSC FLX W/REMOVAL LESION BY HOT BX FORCEPS 04/27/2007 tubular adenoma COLSC FLX W/REMOVAL LESION BY HOT BX FORCEPS 09/28/2008 small polyp in cecum and 40cm, diverticulosis ESOPHAGOGASTRODUODENOSCOPY TRANSORAL DIAGNOSTIC 01/09/2021 HYSTEROSCOPY BX ENDOMETRIUM&/POLYPC W/WO D&C 08/23/2021 D&C for PMB INCISE FINGER TENDON SHEATH Right 06/28/2020 Right ring and little trigger finger releases INCISE FINGER TENDON SHEATH Left 09/28/2020 Left ring trigger finger release INSJ TUNNELED CTR VAD W/SUBQ PORT AGE 5 YR/> 10/06/2007 Right Subclavian MASTECTOMY, SIMPLE, COMPLETE 08/04/2007 left breast with SLND/ALND MASTECTOMY, SIMPLE, COMPLETE Right 08/29/2015 right mastectomy with SLND PAST SURGICAL HISTORY OF bilat CTR, had endometrial bx 2004 PAST SURGICAL HISTORY OF 12/2011 removal of lesion of Lt eyelid PAST SURGICAL HISTORY OF 1982 Rt ovary removed PAST SURGICAL HISTORY OF 01/03/2017 breast surgery REMOVE TONSILS/ADENOIDS,<12 Y/O SALPINGO-OOPHORECTOMY COMPL/PRTL UNI/BI SPX 08/08/2009 left Salpingo-oophorectomy SHAVING SKIN LESION 1 S/N/H/F/G DIAM 0.6-1.0 CM 09/2017 squamous cell SKIN BIOPSY HX TONSILLECTOMY HX TONSILLECTOMY PRIMARY/SECONDARY <AGE 12 1945 Tonsillectomy Allergies: Clindamycin Other: See Comments, Contraindication-Medical Surgical Comment:Should not be prescribed due to past history of c diff Keflex [Cephalexin] Other: See Comments, Contraindication-Medical Surgical Comment:Patient states this caused C diff Naprosyn [Naproxen] Other: See Comments Comment:bleeding Desmond Inhibitors Cough Adhesives [Other] Other: See Comments Comment:Local skin reaction with skin tears Arthrotec 50 [Diclo* Diarrhea Blephamide [Sulface* Cough Ditropan [Oxybutyni* Other: See Comments Comment:Severe dryness of nasal passages, bleeding from the nose, constipation and sneezing Flagyl [Metronidazo* Mental Status Change, Shortness of Breath Comment:Anxiety Flexeril [Cyclobenz* Contraindication-Medical Surgical Comment:urinary urgency Hctz [Hydrochloroth* Mental Status Change Comment:felt strange Naproxen Sodium Contraindication-Medical Surgical Comment:GI Bleeding Paxil [Paroxetine] Contraindication-Medical Surgical Comment:urinary urgency Sulfa (Sulfonamide * Unknown Zestril [Lisinopril] mediport right upper chest Social History Tobacco Use Smoking status: Never Smoker Smokeless tobacco: Never Used Vaping Use Vaping Use: Never used Substance Use Topics Alcohol use: No Drug use: No FAMILY HISTORY Problem Relation Age of Onset other ( age 59 [place]) Mother hypertension and TB other (pancreatic cancer) Father Breast Cancer Sister diagnosed at age 53 Breast Cancer Maternal Aunt diagnosed postmenopausal Breast Cancer Other 2 maternal first cousins Breast Cancer Other maternal cousins Breast Cancer Other maternal great grandmother other (sinus cavity CA) Son other (myeloma) Brother other (healthy) Sister other (ovarian cancer) Sister paternal grandmother Physical exam BP (!) 115/48 (BP Site: Left Arm, BP Position: Sitting, BP Cuff Size: Large Adult) Pulse 78 Temp 36.7 C (98 F) (Temporal) Resp 16 Wt 77.6 kg (171 lb) SpO2 100% BMI 27.60 kg/m Comf, nad, A & O Neck supple, no LAD Heart s1 s2 no m Lungs cta abd soft nt nd No rashes Labs, Microbiology, and Imaging reviewed. Impression/recommendations: Remote history of colovesicular fistula surgically repaired, but does not seem to be current issue Mixed stress and urgency urinary incontinence. Recurrent UTI More recently ESBL E coli since June Personal remote h/o c diff Port in place from prior chemotherapy (flushed monthly) Just restarted topical estrogen, + methenamine Only oral suppressive option for her recent microbiology would be macrobid, which I'm very hesitant to use chronically in an elderly woman because of numerous side effects Would prefer to allow topical estrogen and methenamine some time before embarking on suppressive macrobid Treatment options for recurrent symptomatic UTI: macrobid, possibly fosfomycin If parenteral atb needed, of note she does have mediport in place I remain available to assist with symptomatic treatment as the need arises Jeancarlos Cober, MD October 11, 2021 documented in this encounter [facility] 09-26-2021 Note HNO ID: [id number] Author: Basilia Hernández MD Service: ? Author Type: Physician Type: Progress Notes Filed: 09/28/2021 1:52 PM Note Text: Female Pelvic Medicine AND Reconstructive Surgery Consult CHIEF COMPLAINT: Christian Landrum is a 86 year old female who presents for consultation requested by Dr. Mona Hebert MD for an opinion regarding Recurrent UTI, mixed stress and urgency urinary incontinence. HISTORY OF PRESENT ILLNESS: Pt and daughter here for visit. Reports long standing h/o recurrent UTIs, used to see Dr. Burris at [facility]. Prior colovesical fistula, s/p sigmoid colectomy. Using vaginal estrogen pea sized amount 3x/week, pt's oncologist is aware (h/o breast cancer). Urine cultures: 08/30/21 E coli ESBL S nitrofurantoin 08/12/21 E coli ESBL S nitrofurantoin 08/11/21 E coli ESBL S nitrofurantoin 07/06/21 E coli easton sens 06/17/21 no growth 05/22/21 no growth 03/27/21 Citrobacter koseri R amp Component Latest Ref Rng AND Units 08/13/2021 Creatinine 0.58 - 0.96 mg/dL 0.74 Component Latest Ref Rng AND Units 08/13/2021 eGFR >=60 mL/min/1.73m? 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 She has a previous history of an abnormal mammogram with breast cancer diagnosed in 2007 and 2015. LMP: No LMP recorded. Patient is postmenopausal.; Menopause post: Menstrual history: NA; Deliveries: 3 x History of third or fourth degree laceration: No Weight of largest baby: Unknown Sexual function Sexually active: Not sexually active PFDI-20 Do you: Usually experience pressure in the lower abdomen? Yes, not at all bothersome (1) Usually experience heaviness or dullness in the pelvic area? No (0) Usually have a bulge or something falling out that you can see or feel in your vaginal area? No (0) Ever have to push on the vagina or around the rectum to have or complete a bowel movement? Yes, not at all bothersome (1) Usually experience a feeling of incomplete bladder emptying? Yes, somewhat bothersome (2) Ever have to push up on a bulge in the vaginal area with your fingers to start or complete urination? No (0) Feel you need to strain too hard to have a bowel movement? Yes, somewhat bothersome (2) Feel you have not completely emptied your bowels at the end of a bowel movement? Yes, not at all bothersome (1) Usually lose stool beyond your control if your stool is well formed? No (0) Usually lose stool beyond your control if your stool is loose? No (0) Usually lose gas from the rectum beyond your control? Yes, not at all bothersome (1) Usually have pain when you pass your stool? No (0) Experience a strong sense of urgency and have to chen to the bathroom to have a bowel movement? Yes, somewhat bothersome (2) Does part of your bowel ever pass through the rectum and bulge outside during or after a bowel movement? No (0) Usually experience frequent urination? Yes, moderately bothersome (3) Usually experience urine leakage associated with a feeling of urgency, that is, a strong sensation of needing to go to the bathroom? Yes, somewhat bothersome (2) Usually experience urine leakage related to coughing, sneezing or laughing? Yes, not at all bothersome (1) Usually experience small amounts of urine leakage (that is, drops)? Yes, not at all bothersome (1) Usually experience difficulty emptying your bladder? Yes, somewhat bothersome (2) Usually experience pain or discomfort in the lower abdomen or genital region? Yes, somewhat bothersome (2) Do you have pain associated with your prolapse (not pressure or fullness) No PAST SURGICAL HISTORY Procedure Laterality Date - ABDOMINAL SURGERY HX - APPENDECTOMY 1983 ovarian cyst at same time-one ovary removed right - APPENDECTOMY - BIOPSY BREAST OPEN INCISIONAL left breast twice - BREAST LEFT FINE NEEDLE ASPIRATION left breast - BREAST SURGERY HX - BX BREAST NEEDLE CORE W/O IMAGING GUIDANCE SPX 06/24/2007 left breast - BX BREAST W/DEVICE 1ST LESION STEREOTACTIC GUID 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, DCIS, LCIS - BX/EXC LYMPH NODE OPEN DEEP AXILLARY NODE Right - COLECTOMY PART W/CECOSTOMY 08/08/2009 sigmoid colectomy - COLON SURGERY HX - COLONOSCOPY FLX DX W/COLLJ SPEC WHEN PFRMD 04/19/2003 Colonoscopy - COLONOSCOPY FLX DX W/COLLJ SPEC WHEN PFRMD 11/03/2014 Colonoscopy - COLONOSCOPY FLX DX W/COLLJ SPEC WHEN PFRMD 11/15/2019 Colonoscopy - COLONOSCOPY FLX DX W/COLLJ SPEC WHEN PFRMD 01/09/2021 repeat in 6 months - COLONOSCOPY W/BIOPSY SINGLE/MULTIPLE 03/23/2010 Clean anastamosis at 15cm few right and lef sided diverticula - COLSC FLX W/REMOVAL LESION BY HOT BX FORCEPS 04/27/2007 tubular adenoma - COLSC FLX W/REMOVAL LESION BY HOT BX FORCEPS 09/28/2008 small polyp in cecum and 40cm, diverticulosis - ESOPHAGOGASTRODUODENOSCOPY TRANSORAL DIAGNOSTIC 01/09/2021 - HYSTEROSCOPY (more content not included)... [facility] 09-26-2021 Instructions Basilia Hernández MD - 09/26/2021 2:57 PM EDT Follow up with Dr. Hernández in 3 months Schedule appointment with infectious disease Start Hiprex Continue vaginal estrogen Consider trying D-mannose Your doctor has placed a standing order for urine culture. When you have symptoms of a urine infection, go to a [facility] lab facility and submit a urine specimen for culture. Urine Collection Technique for Women: Wash hands thoroughly with soap and water. If you are menstruating, insert a fresh tampon to stop the flow. Separate the skin folds around the urinary opening for collection. Open the towelette packet and wash the urinary opening and the surrounding areas from front to back. Discard the cloth in the waste basket. Void into toilet for a few seconds and then stop. Wait until the urine stream is well established before stopping. Place the empty container into the path of the stream. Restart the urine stream and collect in sterile container to catch the middle portion of your flow. Tightly screw the cap on the container and avoid touching inside of container. Make sure the container is labeled with your name and date of . Return the collected urine sample to a lab employee or to the designated area. If you have any questions, feel free to ask any laboratory employee. documented in this encounter [facility] 09-26-2021 History of Present illness Narrative Female Pelvic Medicine & Reconstructive Surgery Consult CHIEF COMPLAINT: Christian Landrum is a 86 year old female who presents for consultation requested by Dr. Mona Hebert MD for an opinion regarding Recurrent UTI, mixed stress and urgency urinary incontinence. HISTORY OF PRESENT ILLNESS: Pt and daughter here for visit. Reports long standing h/o recurrent UTIs, used to see Dr. Burris at [facility]. Prior colovesical fistula, s/p sigmoid colectomy. Using vaginal estrogen pea sized amount 3x/week, pt's oncologist is aware (h/o breast cancer). 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 She has a previous history of an abnormal mammogram with breast cancer diagnosed in 2007 and 2015. LMP: No LMP recorded. Patient is postmenopausal.; Menopause post: Menstrual history: NA; Deliveries: 3 x History of third or fourth degree laceration: No Weight of largest baby: Unknown Sexual function Sexually active: Not sexually active PFDI-20 Do you: Usually experience pressure in the lower abdomen? Yes, not at all bothersome (1) Usually experience heaviness or dullness in the pelvic area? No (0) Usually have a bulge or something falling out that you can see or feel in your vaginal area? No (0) Ever have to push on the vagina or around the rectum to have or complete a bowel movement? Yes, not at all bothersome (1) Usually experience a feeling of incomplete bladder emptying? Yes, somewhat bothersome (2) Ever have to push up on a bulge in the vaginal area with your fingers to start or complete urination? No (0) Feel you need to strain too hard to have a bowel movement? Yes, somewhat bothersome (2) Feel you have not completely emptied your bowels at the end of a bowel movement? Yes, not at all bothersome (1) Usually lose stool beyond your control if your stool is well formed? No (0) Usually lose stool beyond your control if your stool is loose? No (0) Usually lose gas from the rectum beyond your control? Yes, not at all bothersome (1) Usually have pain when you pass your stool? No (0) Experience a strong sense of urgency and have to chen to the bathroom to have a bowel movement? Yes, somewhat bothersome (2) Does part of your bowel ever pass through the rectum and bulge outside during or after a bowel movement? No (0) Usually experience frequent urination? Yes, moderately bothersome (3) Usually experience urine leakage associated with a feeling of urgency, that is, a strong sensation of needing to go to the bathroom? Yes, somewhat bothersome (2) Usually experience urine leakage related to coughing, sneezing or laughing? Yes, not at all bothersome (1) Usually experience small amounts of urine leakage (that is, drops)? Yes, not at all bothersome (1) Usually experience difficulty emptying your bladder? Yes, somewhat bothersome (2) Usually experience pain or discomfort in the lower abdomen or genital region? Yes, somewhat bothersome (2) Do you have pain associated with your prolapse (not pressure or fullness) No PAST SURGICAL HISTORY Procedure Laterality Date ABDOMINAL SURGERY HX APPENDECTOMY 1982 ovarian cyst at same time-one ovary removed right APPENDECTOMY BIOPSY BREAST OPEN INCISIONAL left breast twice BREAST LEFT FINE NEEDLE ASPIRATION left breast BREAST SURGERY HX BX BREAST NEEDLE CORE W/O IMAGING GUIDANCE SPX 06/24/2007 left breast BX BREAST W/DEVICE 1ST LESION STEREOTACTIC GUID 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, DCIS, LCIS BX/EXC LYMPH NODE OPEN DEEP AXILLARY NODE Right COLECTOMY PART W/CECOSTOMY 08/08/2009 sigmoid colectomy COLON SURGERY HX COLONOSCOPY FLX DX W/COLLJ SPEC WHEN PFRMD 04/19/2003 Colonoscopy COLONOSCOPY FLX DX W/COLLJ SPEC WHEN PFRMD 11/03/2014 Colonoscopy COLONOSCOPY FLX DX W/COLLJ SPEC WHEN PFRMD 11/15/2019 Colonoscopy COLONOSCOPY FLX DX W/COLLJ SPEC WHEN PFRMD 01/09/2021 repeat in 6 months COLONOSCOPY W/BIOPSY SINGLE/MULTIPLE 03/23/2010 Clean anastamosis at 15cm few right and lef sided diverticula COLSC FLX W/REMOVAL LESION BY HOT BX FORCEPS 04/27/2007 tubular adenoma COLSC FLX W/REMOVAL LESION BY HOT BX FORCEPS 09/28/2008 small polyp in cecum and 40cm, diverticulosis ESOPHAGOGASTRODUODENOSCOPY TRANSORAL DIAGNOSTIC 01/09/2021 HYSTEROSCOPY BX ENDOMETRIUM&/POLYPC W/WO D&C 08/23/2021 D&C for PMB INCISE FINGER TENDON SHEATH Right 06/28/2020 Right ring and little trigger finger releases INCISE FINGER TENDON SHEATH Left 09/28/2020 Left ring trigger finger release INSJ TUNNELED CTR VAD W/SUBQ PORT AGE 5 YR/> 10/06/2007 Right Subclavian MASTECTOMY, SIMPLE, COMPLETE 08/04/2007 left breast with SLND/ALND MASTECTOMY, SIMPLE, COMPLETE Right 08/29/2015 right mastectomy with SLND PAST SURGICAL HISTORY OF bilat CTR, had endometrial bx 2004 PAST SURGICAL HISTORY OF 12/2011 removal of lesion of Lt eyelid PAST SURGICAL HISTORY OF 1982 Rt ovary removed PAST SURGICAL HISTORY OF 01/03/2017 breast surgery REMOVE TONSILS/ADENOIDS,<12 Y/O SALPINGO-OOPHORECTOMY COMPL/PRTL UNI/BI SPX 08/08/2009 left Salpingo-oophorectomy SHAVING SKIN LESION 1 S/N/H/F/G DIAM 0.6-1.0 CM 09/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, estrogen receptor positive (HCC) 06/03/2017 Mitral valve disorders(424.0) and irregular heartbeat on occasion stress related Mixed stress and urge urinary incontinence Osteoarthrosis, unspecified whether generalized or localized, other specified sites 07/22 vit D 41 Other diseases of pharynx, not elsewhere classified(478.29) Other extrapyramidal disease and abnormal movement disorder PMH - PAST MEDICAL HISTORY OF benign mass on liver PMR (polymyalgia rheumatica) (HCC) 2012 Pure hypercholesterolemia Snoring 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 Symptomatic menopausal or female climacteric states IN HER 50S 05/22 NORMAL BONE DENSITY Syncope Thyroid disease 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 Unspecified hemorrhoids without mention of complication Hemorrhoids Unspecified sleep apnea use CPAP SEVERAL YRS UTI (lower urinary tract infection) 2013 frequent FAMILY HISTORY Problem Relation Age of Onset other ( age 59 MA) Mother hypertension and TB other (pancreatic cancer) Father Breast Cancer Sister diagnosed at age 53 Breast Cancer Maternal Aunt diagnosed postmenopausal Breast Cancer Other 2 maternal first cousins Breast Cancer Other maternal cousins Breast Cancer Other maternal great grandmother other (sinus cavity CA) Son other (myeloma) Brother other (healthy) Sister other (ovarian cancer) Sister paternal grandmother Current Outpatient Medications Medication Sig metoprolol succinate ER (TOPROL XL) 25 mg 24 hr tablet Take 1 tablet by mouth once daily. furosemide (LASIX) 20 mg tablet Take 1 tablet by mouth every other day in the morning. predniSONE (DELTASONE) 5 mg tablet Take 1 tablet by mouth once daily. (Patient taking differently: Take 5 mg by mouth once daily as needed (RA exacerbation). ) omeprazole (PRILOSEC) 40 mg capsule Take 1 capsule by mouth once daily. fluticasone (FLONASE) 50 mcg/actuation nasal spray Use 2 Sprays in each nostril once daily. MEDICAL SUPPLY Zippered compression stockings.- 1 pair. levothyroxine (LEVOXYL) 25 mcg tablet Take 1 tablet by mouth once daily. Take on empty stomach. For Thyroid escitalopram oxalate (LEXAPRO) 10 mg tablet Take 1 tablet by mouth once daily. warfarin (COUMADIN) 1 mg tablet 2 mg every Tue; 1 mg all other days diclofenac sodium (VOLTAREN) 1 % topical gel Apply 4 g to affected area as needed. triamcinolone acetonide (NASACORT AQ) 55 mcg nasal inhaler Use 2 Sprays in the nose once daily. (Patient taking differently: Use 2 Sprays in the nose once daily as needed. ) docusate sodium (COLACE) 100 mg capsule Take 1 capsule by mouth twice daily as needed for Constipation. cetirizine (ZYRTEC) 10 mg tablet Take 1 tablet by mouth once daily. MULTIVITAMIN TAB Take 1 tablet by mouth once daily. Methenamine Hippurate (HIPREX) 1 gram tablet Take 1 tablet by mouth twice daily with meals. fpevucn-qeveanfjz-dtijreu D3 500 mg-5 mcg (200 unit) per tablet Take 1 tablet by mouth once daily. gabapentin (NEURONTIN) 600 mg tablet Take 0.5 tablets by mouth once daily. (Patient taking differently: Take 300 mg by mouth daily at bedtime. ) No current facility-administered medications for this visit. ALLERGIES Allergen Reactions Clindamycin Other: See Comments, Contraindication-Medical Surgical Should not be prescribed due to past history of c diff Keflex [Cephalexin] Other: See Comments, Contraindication-Medical Surgical Patient states this caused C diff Naprosyn [Naproxen] Other: See Comments bleeding Desmond Inhibitors Cough Adhesives [Other] Other: See Comments Local skin reaction with skin tears Arthrotec 50 [Diclo* Diarrhea Blephamide [Sulface* Cough Ditropan [Oxybutyni* Other: See Comments Severe dryness of nasal passages, bleeding from the nose, constipation and sneezing Flagyl [Metronidazo* Mental Status Change, Shortness of Breath Anxiety Flexeril [Cyclobenz* Contraindication-Medical Surgical urinary urgency Hctz [Hydrochloroth* Mental Status Change felt strange Naproxen Sodium Contraindication-Medical Surgical GI Bleeding Paxil [Paroxetine] Contraindication-Medical Surgical urinary urgency Sulfa (Sulfonamide * Unknown Zestril [Lisinopril] SOCIAL HISTORY Social History Tobacco Use Smoking status: Never Smoker Smokeless tobacco: Never Used Vaping Use Vaping Use: Never used Substance Use Topics Alcohol use: No Drug use: No Occupation: Retired Marital Status: REVIEW OF SYSTEMS General: Negative for unintentional weight loss, fever, chills, or weakness. Skin: Negative for rash or itching. Psychiatric: Negative for depression. Reports normal stress. Neurologic: Negative for new headache or syncope. Endocrine: Negative for sweating, cold intolerance or heat intolerance. Cardiovascular: Negative for recent chest pain, chest pressure or chest discomfort. Hematologic/Lymphatic: Negative for easy bruising or excessive bleeding. Respiratory: Negative for wheezing, shortness of breath or persistent cough. Gastrointestinal: Negative for persistent abdominal pain. Negative for anorexia, persistent nausea and/or vomiting. Musculoskeletal: Negative for muscle pain, back pain, joint pain or stiffness. I have confirmed and edited as necessary, the PFSH and ROS obtained by others. Basilia Hernández MD Hospice Care Transitions Coordinator offered: Patient accepts, visit chaperoned by Jane Kowalski LPN. OBJECTIVE: Ht 5' 6 (1.68m) Wt 170 lb (77.1kg) BMI 27.45 kg/(m^2). Physical Exam Constitutional: BMI - Body mass index is 27.44 kg/m . General Appearance: Well appearing, alert, in no acute distress, well-hydrated, well nourished. Skin: Skin color, texture, turgor normal, no suspicious rashes or lesions Lungs: Unlabored on room air Heart: Not examined Breasts: Deferred Abdomen: Abdomen soft, non-tender, No masses, organomegaly Pelvic: External Genitalia: No lesions or other abnormalities Vagina: [place] - Normal support ; Post Wall - Normal support Cervix / [place] - Normal support POP-Q: Prolapse Noted: No Vaginal epithelium: Atrophic, small amt dark brown blood in vault Cervix: Normal Urethra: Normal Bimanual: Normal size anteverted uterus, No tenderness, No masses Rectovaginal: Deferred Urine dip neg Bladder scan: Nurse performed and PVR 27 mL IMPRESSION: Christian Landrum is a 86 year old female with recurrent UTI, h/o ESBL, mixed urinary incontinence. PLAN: 1. Recurrent UTI - Continue vaginal estrogen - Discussed D-mannose - Start Hiprex - Referral to ID given h/o ESBL UTIs - CONSULT TO INFECTIOUS DISEASES; Future - URINE CULTURE; Standing for future symptoms - Methenamine Hippurate (HIPREX) 1 gram tablet; Take 1 tablet by mouth twice daily with meals. Dispense: 180 tablet; Refill: 3 2. History of ESBL E. coli infection - CONSULT TO INFECTIOUS DISEASES; Future 3. Mixed stress and urge urinary incontinence - Lifestyle and behavioral modifications to reduce urinary incontinence symptoms were reviewed and discussed. Follow up in 3 months My final recommendations will be communicated back to the requesting physician by way of shared Medical record or letter via US mail. Basilia Hernández MD documented in this encounter [facility] 09-19-2021 Miscellaneous Notes ticketea message sent for therapeutic INR. documented in this encounter [facility] 09-18-2021 History of Present illness Narrative Chief Complaint Patient presents with: Established Patient HPI: Christian Landrum is a 86 year old female who presents here today for follow up breast cancer. Per Dr. Bonilla's previous note: H/o underwent a left-sided simple mastectomy for a T2 N0 stage IIA hormone-receptor negative by IHC (positive by RT-PCR testing), HER-2 nonamplified breast cancer. Received 3 cycles of docetaxel and cyclophosphamide. Oncotype PCR suggested low level ER expression. Changed to exemestane due to severe b/l leg pain (trochanteric bursitis). Subsequently changed to tamoxifen 04/2010. CT A/P in 07/23 revealed new liver lesion which was not visualized on US. MRI demonstrated the lesion in anterior portion of right lobe of liver not typical appearance for hemangioma or FNH. PET scan was negative. Follow up MRI 10/23 showed the lesion to be stable. Diagnosed with polymyalgia rheumatica 2012. Completed aromasin/tamoxifen therapy 2012. Recently dx with new right sided primary breast cancer. Was found to have non-palpable abnormality on right sided screening mammogram. 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 Stains for both estrogen and progesterone receptors were positive (greater than 95% for both; strong for ER, moderate for ND). HER-2 3+. Had been using Estrace cream to help control symptoms of vaginal atrophy and recurrent UTIs. Underwent right mastectomy with SLN biopsy 08/29/2015. Pathology: A. Right axillary sentinel lymph node #1, excision: - Three lymph nodes negative for malignancy (0/3). B. Right breast, mastectomy: - Invasive ductal carcinoma, see synoptic report. - Atypical lobular hyperplasia. - Large hemorrhagic, organizing biopsy site. - Apocrine cysts, adenosis and stromal fibrosis. - Nipple with no pathologic change. C. Right axillary sentinel lymph node #2, excision: - One lymph node, negative for malignancy (0/1). SYNOPTIC REPORT OF [facility] RIGHT BREAST MASTECTOMY: Part: B Specimen Laterality: Right Procedure: Total mastectomy (including nipple and skin) Wire Localization: Wire absent Lymph Node Sampling: [place] lymph node(s) Tumor size: Size of largest invasive carcinoma: Greatest dimension of largest focus of invasion >1 mm: 8 mm Tumor Focality: Single focus of invasive carcinoma Macroscopic-Microscopic Extension of tumor: Skin: Uninvolved Nipple: Uninvolved Skeletal muscle: Not applicable Invasive Carcinoma Margins: Margins uninvolved by invasive carcinoma Distance from closest margin: 20 mm Closest Uninvolved Margin:Deep DCIS Margins: Margins uninvolved by DCIS (DCIS present) Distance from closest margin: 20 mm Closest Uninvolved Margin:Deep Histologic Type of Invasive Carcinoma: Invasive ductal carcinoma (no special type or not otherwise specified) Histologic Grade: Glandular (Acinar) / Tubular Differentiation: Score 2 Nuclear Pleomorphism: Score 3 Mitotic Rate: Score 1 Overall Grade: Grade II Lymph-Vascular Invasion: Not identified Ductal Carcinoma In Situ: DCIS is present Architectural Pattern:Cribriform DCIS Nuclear Grade: Grade III (high) DCIS Necrosis: Present, focal (small foci or single cell necrosis) Lymph Nodes: Total number of nodes examined (sentinel and nonsentinel): 4 Number of sentinel lymph nodes examined: 4 Number of lymph nodes with macrometastases (>2 mm): 0 Number of lymph nodes with micrometastases (>0.2 mm to 2 mm and/or >200 cells): 0 Number of lymph nodes with isolated tumor cells (<= 0.2 mm and <= 200 cells): 0 TNM Descriptor(s): Not applicable Primary Tumor (Invasive Carcinoma) (pT): pT1b Regional Lymph Nodes (pN): Modifier: (sn) Category (pN): pN0 Distant metastasis: Not Applicable Completed 5 years tamoxifen therapy. I haven't been good. I was in the hospital for my gallbladder. See by Dr. Turk at that time-June 2021. No surgery done. Referred to Dr. Das. She was then admitted to [facility] for weakness end of June. Admitted to [place] for UTI end of July. During that time her . S/p underwent hysteroscopy D&C at [facility] on 08/23/[address] Hebert. Path. Benign. 09/11/21-vaginal bleeding was seen by Dr. Hebert. Pt. participating in PT. Appetite: I've been eating. My sister has been here from [place]. Energy level: I sleep a lot. Denies fevers. Resp:denies cough or sob-followed by PULM-using bi-pap, h/o allergies Cardiac:denies chest pain/palpitations h/o A.fib. On coumadin. GI:denies abd pain (H/o IBS, colitis), n/v, moving bowels regularly :+dysuria, denies hematuria-chronic UTI-has plans to see urogyn Extrem:h/o RA, joint pain dx in her 40's -followed by Rheum-off of methotrexate-takes tylenol as needed Endo:denies hot flashes Neuro:+neuropathy to feet-stable Skin:denies rashes/lesions Heme:denies bleeding since visit with VOCATIONAL PSYCHOLOGIST The ROS is otherwise negative. Past medical history, appointments, medications, allergies reviewed. No changes. EXAM: BP (!) 108/47 Pulse 75 Temp 36.3 C (97.4 F) Wt 77.1 kg (170 lb) BMI 27.44 kg/m APPEARANCE Well appearing, alert, in no acute distress, well-hydrated, well nourished. HEART RRR with normal S1 and S2, no murmurs LUNG clear to auscultation BREAST FEMALE b/l mastectomy scars, no nodule LYMPH NODES No cervical lymphadenopathy, No supraclavicular lymphadenopathy and No axillary lymphadenopathy. ABDOMEN bowel sounds normoactive, soft, non-tender, non-distended, without organomegaly or palpable masses EXTREMITIES No edema NEURO Awake, alert and oriented x 3, Normal gait and No involuntary motions. SKIN Skin color, texture, turgor normal, no suspicious rashes or lesions ASSESSMENT/PLAN: 1. 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 H/o Stage IIA left sided breast cancer. Received 3 cycles of TC. Completed 5 years' worth of AI/tamoxifen. - No concerning findings on exam. - Tolerated tamoxifen well. - Completed 5 years tamoxifen 2021. - Continue follow up with her specialists. - Needs port flushes monthly. - Follow up in 6 months. - Pt. aware to call office any questions/concerns. The patient indicates understanding of these issues and agrees with the plan. All documentation from previous visit of 03/27/21-Dr. Bonilla/myself was copied and pasted, documentation has been reviewed and edited as necessary for today's visit. Angelic Arreola APRN.MIMEOGRAPHER documented in this encounter [facility] 09-18-2021 Nurse Note Est. Pt. 6 month f/u Sadie Lin LPN documented in this encounter [facility] 09-12-2021 Miscellaneous Notes Stp - reviewed Dr. King's note from yesterday's OV. Pt reports no further issues - bleeding concerns. She resumed yesterday taking 1mg - 09/11. Advised her to continue her current dose and retest next week. Jerrica Rothman PharmD PATIENT CALL Patient called call center regarding procedure. Patient called and left message after hours that stated she had her procedure on 09/11 and MD had advised her to resume her warfarin. Patient wanted to call and let [facility] know. Patient can be reached at [phone]. Maria A Camacho (Skatesman) Spoke to patient. She has not taken warfarin for past 5 days due to vaginal bleeding. She has a n appointment today with third helper for cauterization. Advised she call PAC back after appt to let us know when she can resume warfarin. PT INR (no units) Date Value 06/06/2021 3.1 (biotel) 05/23/2021 2.5 (biotel) 03/15/2021 1.9 INR Home CoaguChek (no units) Date Value 09/10/2021 1.6 09/04/2021 2.0 08/22/2021 2.7 Nury Andres Pharmacist PATIENT CALL [employer] called call center regarding results and left message after hours 09/10/2021 at 7:30pm. Patient also called and left message (transferred from PSS line) stating that she is having some bleeding issues and hasn't taken warfarin for at least five days. Please see yesterdays BUSINESS SUPPORT LIAISON encounter as well. Received call from [facility] Remote INR for patient. Patient tested on 09/10/2021 with out of range INR result of 1.6. PT INR (no units) Date Value 06/06/2021 3.1 (biotel) 05/23/2021 2.5 (biotel) 03/15/2021 1.9 INR Home CoaguChek (no units) Date Value 09/10/2021 1.6 09/04/2021 2.0 08/22/2021 2.7 Patient can be reached at [phone]. Kevin Torres, Pharmacy Antico[facility] Clinic documented in this encounter [facility] 09-11-2021 History of Present illness Narrative Christian Landrum is a 86 year old female who presents for problem visit for c/o vaginal bleeding. Bleeding was bright red for a few days, some small dime-sized clots. Slowed to spotting yesterday, none today. Stopped coumadin again for 2 days. No UTIS symptoms. OB History T3 L3 SAB0 IAB0 Ectopic0 Multiple0 Live Births0 Comment: Menarche 12 fftp 26. natural menopause 50+ Menarche: 12; Age at 1st : 26; LIBERTY/BSO at age 51 due to ovarian tumor President [employer] History LMP: Postmenopausal Age at Menarche: Age at First : Age at Menopause: President [employer] History Comments: Sexual Activity: Not Currently; Male Contraception: No contraception data on record PAST MEDICAL HISTORY Diagnosis Date Abdominal pain, left lower quadrant long standing Arrhythmia Arthritis Asthma Atrial fibrillation (HCC) 2009 Atrophic vaginitis Benign neoplasm of colon C. 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, estrogen receptor positive (HCC) 06/03/2017 Mitral valve disorders(424.0) and irregular heartbeat on occasion stress related Mixed stress and urge urinary incontinence Osteoarthrosis, unspecified whether generalized or localized, other specified sites 07/22 vit D 41 Other diseases of pharynx, not elsewhere classified(478.29) Other extrapyramidal disease and abnormal movement disorder PMH - PAST MEDICAL HISTORY OF benign mass on liver PMR (polymyalgia rheumatica) (HCC) 2012 Pure hypercholesterolemia Snoring 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 Symptomatic menopausal or female climacteric states IN HER 50S 05/22 NORMAL BONE DENSITY Syncope Thyroid disease 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 Unspecified hemorrhoids without mention of complication Hemorrhoids Unspecified sleep apnea use CPAP SEVERAL YRS UTI (lower urinary tract infection) 2012 frequent PAST SURGICAL HISTORY Procedure Laterality Date ABDOMINAL SURGERY HX APPENDECTOMY 1982 ovarian cyst at same time-one ovary removed right APPENDECTOMY BIOPSY BREAST OPEN INCISIONAL left breast twice BREAST LEFT FINE NEEDLE ASPIRATION left breast BREAST SURGERY HX BX BREAST NEEDLE CORE W/O IMAGING GUIDANCE SPX 06/24/2007 left breast BX BREAST W/DEVICE 1ST LESION STEREOTACTIC GUID 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, DCIS, LCIS BX/EXC LYMPH NODE OPEN DEEP AXILLARY NODE Right COLECTOMY PART W/CECOSTOMY 08/08/2009 sigmoid colectomy COLON SURGERY HX COLONOSCOPY FLX DX W/COLLJ SPEC WHEN PFRMD 04/19/2003 Colonoscopy COLONOSCOPY FLX DX W/COLLJ SPEC WHEN PFRMD 11/03/2014 Colonoscopy COLONOSCOPY FLX DX W/COLLJ SPEC WHEN PFRMD 11/15/2019 Colonoscopy COLONOSCOPY FLX DX W/COLLJ SPEC WHEN PFRMD 01/09/2021 repeat in 6 months COLONOSCOPY W/BIOPSY SINGLE/MULTIPLE 03/23/2010 Clean anastamosis at 15cm few right and lef sided diverticula COLSC FLX W/REMOVAL LESION BY HOT BX FORCEPS 04/27/2007 tubular adenoma COLSC FLX W/REMOVAL LESION BY HOT BX FORCEPS 09/28/2008 small polyp in cecum and 40cm, diverticulosis ESOPHAGOGASTRODUODENOSCOPY TRANSORAL DIAGNOSTIC 01/09/2021 HYSTEROSCOPY BX ENDOMETRIUM&/POLYPC W/WO D&C 08/23/2021 D&C for PMB INCISE FINGER TENDON SHEATH Right 06/28/2020 Right ring and little trigger finger releases INCISE FINGER TENDON SHEATH Left 09/28/2020 Left ring trigger finger release INSJ TUNNELED CTR VAD W/SUBQ PORT AGE 5 YR/> 10/06/2007 Right Subclavian MASTECTOMY, SIMPLE, COMPLETE 08/04/2007 left breast with SLND/ALND MASTECTOMY, SIMPLE, COMPLETE Right 08/29/2015 right mastectomy with SLND PAST SURGICAL HISTORY OF bilat CTR, had endometrial bx 2004 PAST SURGICAL HISTORY OF 12/2011 removal of lesion of Lt eyelid PAST SURGICAL HISTORY OF 1982 Rt ovary removed PAST SURGICAL HISTORY OF 01/03/2017 breast surgery REMOVE TONSILS/ADENOIDS,<12 Y/O SALPINGO-OOPHORECTOMY COMPL/PRTL UNI/BI SPX 08/08/2009 left Salpingo-oophorectomy SHAVING SKIN LESION 1 S/N/H/F/G DIAM 0.6-1.0 CM 09/2017 squamous cell SKIN BIOPSY HX TONSILLECTOMY HX TONSILLECTOMY PRIMARY/SECONDARY <AGE 12 1945 Tonsillectomy FAMILY HISTORY Problem Relation Age of Onset other ( age 59 [place]) Mother hypertension and TB other (pancreatic cancer) Father Breast Cancer Sister diagnosed at age 53 Breast Cancer Maternal Aunt diagnosed postmenopausal Breast Cancer Other 2 maternal first cousins Breast Cancer Other maternal cousins Breast Cancer Other maternal great grandmother other (sinus cavity CA) Son other (myeloma) Brother other (healthy) Sister other (ovarian cancer) Sister paternal grandmother Social History Tobacco Use Smoking status: Never Smoker Smokeless tobacco: Never Used Vaping Use Vaping Use: Never used Substance Use Topics Alcohol use: No Drug use: No Current Outpatient Medications Medication Sig nitrofurantoin monohydrate and macrocrystal (MACROBID) 100 mg capsule Take 1 capsule by mouth twice daily for 10 days. metoprolol succinate ER (TOPROL XL) 25 mg 24 hr tablet Take 1 tablet by mouth once daily. nylhezn-rlisoyzgr-kizcydk D3 500 mg-5 mcg (200 unit) per tablet Take 1 tablet by mouth once daily. furosemide (LASIX) 20 mg tablet Take 1 tablet by mouth every other day in the morning. predniSONE (DELTASONE) 5 mg tablet Take 1 tablet by mouth once daily. (Patient taking differently: Take 5 mg by mouth once daily as needed (RA exacerbation). ) omeprazole (PRILOSEC) 40 mg capsule Take 1 capsule by mouth once daily. fluticasone (FLONASE) 50 mcg/actuation nasal spray Use 2 Sprays in each nostril once daily. MEDICAL SUPPLY Zippered compression stockings.- 1 pair. levothyroxine (LEVOXYL) 25 mcg tablet Take 1 tablet by mouth once daily. Take on empty stomach. For Thyroid escitalopram oxalate (LEXAPRO) 10 mg tablet Take 1 tablet by mouth once daily. gabapentin (NEURONTIN) 600 mg tablet Take 0.5 tablets by mouth once daily. (Patient taking differently: Take 300 mg by mouth daily at bedtime. ) warfarin (COUMADIN) 1 mg tablet 2 mg every Tue; 1 mg all other days diclofenac sodium (VOLTAREN) 1 % topical gel Apply 4 g to affected area as needed. triamcinolone acetonide (NASACORT AQ) 55 mcg nasal inhaler Use 2 Sprays in the nose once daily. (Patient taking differently: Use 2 Sprays in the nose once daily as needed. ) docusate sodium (COLACE) 100 mg capsule Take 1 capsule by mouth twice daily as needed for Constipation. cetirizine (ZYRTEC) 10 mg tablet Take 1 tablet by mouth once daily. MULTIVITAMIN TAB Take 1 tablet by mouth once daily. No current facility-administered medications for this visit. Allergies As of Date: 09/11/2021 Allergen Noted Reaction CLINDAMYCIN 03/05/2016 Other: See Comments and Contraindication-Medical Surgical KEFLEX [CEPHALEXIN] 01/06/2019 Other: See Comments and Contraindication-Medical Surgical NAPROSYN [NAPROXEN] 02/12/2010 Other: See Comments DESMOND INHIBITORS 05/17/2004 Cough ADHESIVES [OTHER] 10/14/2007 Other: See Comments ARTHROTEC 50 [DICLOFENAC-MISOPROS*06/24/2007 Diarrhea BLEPHAMIDE [SULFACETAMIDE-PREDNIS*05/18/2010 Cough DITROPAN [OXYBUTYNIN] 06/20/2020 Other: See Comments FLAGYL [METRONIDAZOLE HCL] 02/17/2010 Mental Status Change and Shortness of Breath FLEXERIL [CYCLOBENZAPRINE] 05/17/2004 Contraindication-Medical Surgical HCTZ [HYDROCHLOROTHIAZIDE] 10/07/2005 Mental Status Change NAPROXEN SODIUM 02/12/2010 Contraindication-Medical Surgical PAXIL [PAROXETINE] 05/17/2004 Contraindication-Medical Surgical SULFA (SULFONAMIDE ANTIBIOTICS) 12/26/2015 Unknown ZESTRIL [LISINOPRIL] 07/08/2007 Fully Assessed 09/05/2021 Allergies and current medication updated:Yes EXAM: There were no vitals taken for this visit. GENERAL: pleasant, female in no apparent distress VOCATIONAL PSYCHOLOGIST: normal external genitalia, no blood present. Vagina atropihc, narrow introitus. Cervix is intact, no active bleeding, no blood at os. Cervix appears closed. There is a small area on posterior lip that appears erythemetous UNIVERSAL PROTOCOL / SAFETY CHECKLIST Procedure to be Performed: cauterization of the cervix Sign In: A Moment of CARE was completed. Personnel directly involved with the procedure wore the appropriate PPE (Personal Protective Equipment). Patient/Surrogate Stated/Verified: PATIENT VERIFIED(optional for EMERGENT procedures): Patient name, Date of , Relevant allergies and The intended procedure Time Out Communication: Intended patient and procedure match the source documents. Consent documented and matches the intended procedure. No implant(s) inserted. Sign Out: SIGN OUT (optional for EMERGENT procedures): No specimen collected. Mona Hebert MD Procedure note- LEEP speculum placed, 2 cc of 1%zylocaine w/ dilute epinephrine placed used as a para cervical block. The ball cuatery was then used on COAG to cauterize the posterior cervix. Monsel's placed on the cervix. Instruments removed and were intact. Patient tolerated procedure well EBL- 0cc complications- none ASSESSMENT AND PLAN: cervical bleeding- cauterized. Ok to restart coumadin. D/w her that she had bleeding before D&C and uncertain where that was coming from as no uterine pathology noted. A hyst would have signif risks for her. D/ wher endometrial ablation would be off label but would consider for palliative, quality of life management but would be risk of missing underlying ca. Will monitor bleeding for now, f/u w/ urogyn for bladder infections and return if needed. Medical Decision Making Mona Hebert MD documented in this encounter [facility] 09-10-2021 Miscellaneous Notes Appointment given. Juliet Cuevas RN I am just confused why it is continuing so much> Yes, I think we should consider cauterizing it to get it to stop. I can try to do it this week for her, would be willing to try to work her in tomorrow. Mona Hebert MD Daughter called back. Coumadin was restarted on 08/30. Bleeding became heavy on 09/06 with clots so the daughter had her stop it. Today her bleeding is very little. Not concerning at this time. They will notify Dr. Sainz that she stopped her Coumadin, as well. Daughter asking if you think it should be cauterized so that she can resume taking again. Juliet Cuevas RN Spoke with daughter. She is going to call her aunt who is staying with her this week for an update on the bleeding and let us know. Juliet Cueavs RN How much bleeding? Enough they are concerned? I can see her and see if we can cauterize it. Urogyn is just fine. Thanks. Juan M Davis MD Spoke with daughter. She has an appointment with Uro/President And Chief Commercial Officer, Dr. Hernández on 09/26. Is this ok or would you rather her see urology? Patient started bleeding and passing clots last week once her Coumadin was in the therapeutic level. Stopped it on . Now her vaginal bleeding is only spotting. Juliet Cuevas RN Please let her/daughter know that her urine culture is still + for e. coli after she finished the macrobid. I do not think that the macrobid is going to eliminate it. I would recommend that she get a consult (can be virtual) w/ urology or with infectious disease to see what they think she should be on as I am concerned about this. For now I will give her some more macrobid to maybe help to decrease the chances of getting pylenephritis until we get an opinion from them. Remain on macrobid until sees ID or urology. Mona Hebert MD documented in this encounter [facility] 09-07-2021 Miscellaneous Notes Noted. Please let us know if they need anything else from us. Thank you An Ta APRN.INGE Sheryl with [facility] called and reports Pt is thinking of coming and living in their Assisted Living facilities. Sent Face sheet and last OV notes to fax # [phone]. documented in this encounter [facility] 09-05-2021 History of Present illness Narrative Images from the original note were not included. [facility] Obdulia and Carmella Kolb Department of Cardiovascular Medicine Established HPI: Christian Landrum is a 86 year old female with a history of paroxysmal AF (coumadin), rheumatic mitral valve regurgitation, HTN, HLD, STUART, breast cancer, PMR, and OA. She was last seen by me on 12/22/20 where a pharmacologic nuclear stress test was ordered and seen for telephone visit by INSURANCE PLAN SPECIALIST 04/19/21. MPI showed no evidence of ischemia or infarction. She was hospitalized in June at [facility] and in July 2021 in [place] both for UTI and fever. She continues on warfarin anticoagulation and has had therapeutic INR levels that have been very good. Her hemoglobins have ranged around 9 0.2 and follows for iron infusions and supplements. She lost her approximately 1 month ago. She comes in today with her daughter. She has had occasional palpitations and very brief runs of a fast heartbeat sensation. She denies chest pain, dyspnea on exertion, orthopnea, PND, near syncope, or syncope. Lightheadedness improved with decreasing lasix to every other day. Edema is well controlled with compression garments and elevation. Home blood pressure is not done. Prior history: 04/19/21 She was hospitalized on 01/1201/14/2021 for post-polypectomy rectal bleeding in setting of therapeutic INR and coumadin use. A CT scan of the A/P demonstrated acute cystitis, cirrhotic liver morphology, and the abnormal endometrial thickening. Her hemoglobins remained stable and she was started on iron supplementation. ROS: Card: See present history. Pulm: See present history. Gastro: No nausea, vomiting, or diarrhea GenUr: No history of dysuria, frequency or incontinence Endo: Negative for cold or heat intolerance, polyuria or polydipsia. Neuro: No recent CVA or TIA Musculoskeletal: + arthralgias Infect: no fevers, chills, rigors or night sweats. Skin: Negative for lesions, rash, and itching. Heme: Negative for prolonged bleeding, bruising easily or swollen nodes. The remainder of the review of systems is negative. BP 104/54 Pulse 73 Ht 167.6 cm (5' 6 ) Wt 77.7 kg (171 lb 3.2 oz) SpO2 97% BMI 27.63 kg/m PHYSICAL EXAMINATION: General appearance: Well appearing, alert, in no acute distress, well-hydrated, well nourished. Lungs: Lungs clear to auscultation. No wheezing, rhonchi, rales. Heart: RRR without murmur, gallop, or rubs. No ectopy Abdomen: Normal abdominal exam, Abdomen soft, non-tender. Bowel sounds normal. No masses, organomegaly Extremities: No deformities, edema, skin discoloration, clubbing or cyanosis. Good capillary refill. Peripheral pulses: Normal Data Reviewed: Most recent labs and imaging results. Most recent EKG CARDIAC TESTING Pharmacologic MPI stress test (01/10/2021): CONCLUSIONS: 1. SPECT Perfusion Study: Normal. 2. There is no scintigraphic evidence for inducible ischemia. 3. No evidence of scarred myocardium. 4. Left ventricle is normal in size. The left ventricle systolic function is normal. 5. This is a low risk scan. Gated Stress FBP Gated Rest FBP LVEF % 65 67 Echocardiogram (09/07/2020): CONCLUSIONS: - Exam indication: Atrial fibrillation - The left ventricle is normal in size. There is mild septal left ventricular hypertrophy. Left ventricular systolic function is normal. EF = 65 5% (2D biplane) Grade I left ventricular diastolic dysfunction. - The right ventricle is normal in size. Right ventricular systolic function is normal. - There are no significant valvular abnormalities. - Exam was compared with the prior echocardiographic exam performed on 08/03/2019, no significant change. ASSESSMENT/PLAN: Paroxysmal atrial fibrillation - Stable and remains in sinus rhythm today - No atrial fibrillation noted despite multiple hospital admissions with fever - Anticoagulated with warfarin and good therapeutic INR levels - Currently on metoprolol Rheumatic mitral regurgitation - Echo 08/2020: trace-1+ MR - Stable, continue to monitor clinically and with periodic echocardiogram - She wants to hold off echocardiogram at this time Essential hypertension - Good control on metoprolol - Encouraged dietary sodium restriction/DASH diet - Recommended regular aerobic exercise. - Goal of BP <130/80 Mixed hyperlipidemia - LDL ok with TG elevated at 187, 01/2020 STUART (obstructive sleep apnea) - Compliant on BIPAP PMR (polymyalgia rheumatica), RA History of breast cancer - 2007, S/P L-sided simple mastectomy - Recurrence 2015 with R-sided mastectomy CONCLUSION: She is doing relatively well from a cardiac standpoint. She has had no recurrent atrial fibrillation documented despite multiple hospital admissions and ED visits. She does have chronic anemia and no obvious bleeding at this time. Her INR fortunately has been in a good therapeutic range so as not to contribute to the her anemia should there be significant bleeding. We talked about updating her cardiac work-up due to some intermittent shortness of breath spells seem to be more related to her anemia however she wishes to hold off at this time. Will continue to follow her periodically. Thank you for allowing me the privilege of participating in the care of your patient. Please do not hesitate to contact me if there are any questions. Cecilio Ibarra DO, FACC, FCCP, FACOI documented in this encounter [facility] 09-05-2021 Miscellaneous Notes PetroDEhart message sent for INR therapeutic range. documented in this encounter [facility] 08-31-2021 Miscellaneous Notes Please see pt's mychart message and pended order below. Please advise. Kamila Bentley LPN documented in this encounter [facility] 08-30-2021 History of Present illness Narrative Christian Landrum is a 86 year old female who presents for problem visit for f/u vaginal bleeding s/p hysteroscopy D&C. Pathology returned benign. No discrete polyp noted. Returned to office on 08/28 w/ vaginal bleeding. Noted to have bleeding from posterior cervix where tenaculum was. No large laceration, just ongoing bleeding. Pressure, Monsel's solution and vaginal packing used and bleeding stopped. Since she left she has had only some orange vaginal discharge. However she has continued to have urgency, going eery 30 min yesterday and pelvic pressure. Packing expelled last this am, one radio opaque guaze. Since then no active bleeding. Had 2 large episodes of leaking through clothing while sleeping today> This is new. 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 Just finished antibiotics for a UTI/pylo after her last hostpitalization. Feels tired. Drinking plenty of water. Denies fever/chills. OB History T3 L3 SAB0 IAB0 Ectopic0 Multiple0 Live Births0 Comment: Menarche 12 fftp 26. 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, estrogen receptor positive (HCC) 06/03/2017 Mitral valve disorders(424.0) and irregular heartbeat on occasion stress related Mixed stress and urge urinary incontinence Osteoarthrosis, unspecified whether generalized or localized, other specified sites 07/22 vit D 41 Other diseases of pharynx, not elsewhere classified(478.29) Other extrapyramidal disease and abnormal movement disorder PMH - PAST MEDICAL HISTORY OF benign mass on liver PMR (polymyalgia rheumatica) (HCC) 2012 Pure hypercholesterolemia Snoring 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 Symptomatic menopausal or female climacteric states IN HER 50S 05/22 NORMAL BONE DENSITY Syncope Thyroid disease 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 Unspecified hemorrhoids without mention of complication Hemorrhoids Unspecified sleep apnea use CPAP SEVERAL YRS UTI (lower urinary tract infection) 2012 frequent PAST SURGICAL HISTORY Procedure Laterality Date ABDOMINAL SURGERY HX APPENDECTOMY 1982 ovarian cyst at same time-one ovary removed right APPENDECTOMY BIOPSY BREAST OPEN INCISIONAL left breast twice BREAST LEFT FINE NEEDLE ASPIRATION left breast BREAST SURGERY HX BX BREAST NEEDLE CORE W/O IMAGING GUIDANCE SPX 06/24/2007 left breast BX BREAST W/DEVICE 1ST LESION STEREOTACTIC GUID 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, DCIS, LCIS BX/EXC LYMPH NODE OPEN DEEP AXILLARY NODE Right COLECTOMY PART W/CECOSTOMY 08/08/2009 sigmoid colectomy COLON SURGERY HX COLONOSCOPY FLX DX W/COLLJ SPEC WHEN PFRMD 04/19/2003 Colonoscopy COLONOSCOPY FLX DX W/COLLJ SPEC WHEN PFRMD 11/03/2014 Colonoscopy COLONOSCOPY FLX DX W/COLLJ SPEC WHEN PFRMD 11/15/2019 Colonoscopy COLONOSCOPY FLX DX W/COLLJ SPEC WHEN PFRMD 01/09/2021 repeat in 6 months COLONOSCOPY W/BIOPSY SINGLE/MULTIPLE 03/23/2010 Clean anastamosis at 15cm few right and lef sided diverticula COLSC FLX W/REMOVAL LESION BY HOT BX FORCEPS 04/27/2007 tubular adenoma COLSC FLX W/REMOVAL LESION BY HOT BX FORCEPS 09/28/2008 small polyp in cecum and 40cm, diverticulosis ESOPHAGOGASTRODUODENOSCOPY TRANSORAL DIAGNOSTIC 01/09/2021 HYSTEROSCOPY BX ENDOMETRIUM&/POLYPC W/WO D&C 08/23/2021 D&C for PMB INCISE FINGER TENDON SHEATH Right 06/28/2020 Right ring and little trigger finger releases INCISE FINGER TENDON SHEATH Left 09/28/2020 Left ring trigger finger release INSJ TUNNELED CTR VAD W/SUBQ PORT AGE 5 YR/> 10/06/2007 Right Subclavian MASTECTOMY, SIMPLE, COMPLETE 08/04/2007 left breast with SLND/ALND MASTECTOMY, SIMPLE, COMPLETE Right 08/29/2015 right mastectomy with SLND PAST SURGICAL HISTORY OF bilat CTR, had endometrial bx 2004 PAST SURGICAL HISTORY OF 12/2011 removal of lesion of Lt eyelid PAST SURGICAL HISTORY OF 1982 Rt ovary removed PAST SURGICAL HISTORY OF 01/03/2017 breast surgery REMOVE TONSILS/ADENOIDS,<12 Y/O SALPINGO-OOPHORECTOMY COMPL/PRTL UNI/BI SPX 08/08/2009 left Salpingo-oophorectomy SHAVING SKIN LESION 1 S/N/H/F/G DIAM 0.6-1.0 CM 09/2017 squamous cell SKIN BIOPSY HX TONSILLECTOMY HX TONSILLECTOMY PRIMARY/SECONDARY <AGE 12 5 Tonsillectomy FAMILY HISTORY Problem Relation Age of Onset other ( age 59 [place]) Mother hypertension and TB other (pancreatic cancer) Father Breast Cancer Sister diagnosed at age 53 Breast Cancer Maternal Aunt diagnosed postmenopausal Breast Cancer Other 2 maternal first cousins Breast Cancer Other maternal cousins Breast Cancer Other maternal great grandmother other (sinus cavity CA) Son other (myeloma) Brother other (healthy) Sister other (ovarian cancer) Sister paternal grandmother Social History Tobacco Use Smoking status: Never Smoker Smokeless tobacco: Never Used Vaping Use Vaping Use: Never used Substance Use Topics Alcohol use: No Drug use: No Current Outpatient Medications Medication Sig metoprolol succinate ER (TOPROL XL) 25 mg 24 hr tablet Take 1 tablet by mouth once daily. kcdybaa-wevtcpewh-qvgjyez D3 500 mg-5 mcg (200 unit) per tablet Take 1 tablet by mouth once daily. furosemide (LASIX) 20 mg tablet Take 1 tablet by mouth every other day in the morning. predniSONE (DELTASONE) 5 mg tablet Take 1 tablet by mouth once daily. (Patient taking differently: Take 5 mg by mouth once daily as needed (RA exacerbation). ) omeprazole (PRILOSEC) 40 mg capsule Take 1 capsule by mouth once daily. fluticasone (FLONASE) 50 mcg/actuation nasal spray Use 2 Sprays in each nostril once daily. MEDICAL SUPPLY Zippered compression stockings.- 1 pair. levothyroxine (LEVOXYL) 25 mcg tablet Take 1 tablet by mouth once daily. Take on empty stomach. For Thyroid escitalopram oxalate (LEXAPRO) 10 mg tablet Take 1 tablet by mouth once daily. gabapentin (NEURONTIN) 600 mg tablet Take 0.5 tablets by mouth once daily. (Patient taking differently: Take 300 mg by mouth daily at bedtime. ) warfarin (COUMADIN) 1 mg tablet 2 mg every Tue; 1 mg all other days diclofenac sodium (VOLTAREN) 1 % topical gel Apply 4 g to affected area as needed. triamcinolone acetonide (NASACORT AQ) 55 mcg nasal inhaler Use 2 Sprays in the nose once daily. (Patient taking differently: Use 2 Sprays in the nose once daily as needed. ) docusate sodium (COLACE) 100 mg capsule Take 1 capsule by mouth twice daily as needed for Constipation. cetirizine (ZYRTEC) 10 mg tablet Take 1 tablet by mouth once daily. MULTIVITAMIN TAB Take 1 tablet by mouth once daily. No current facility-administered medications for this visit. Allergies As of Date: 08/30/2021 Allergen Noted Reaction CLINDAMYCIN 03/05/2016 Other: See Comments and Contraindication-Medical Surgical KEFLEX [CEPHALEXIN] 01/06/2019 Other: See Comments and Contraindication-Medical Surgical NAPROSYN [NAPROXEN] 02/12/2010 Other: See Comments DESMOND INHIBITORS 05/17/2004 Cough ADHESIVES [OTHER] 10/14/2007 Other: See Comments ARTHROTEC 50 [DICLOFENAC-MISOPROS*06/24/2007 Diarrhea BLEPHAMIDE [SULFACETAMIDE-PREDNIS*05/18/2010 Cough DITROPAN [OXYBUTYNIN] 06/20/2020 Other: See Comments FLAGYL [METRONIDAZOLE HCL] 02/17/2010 Mental Status Change and Shortness of Breath FLEXERIL [CYCLOBENZAPRINE] 05/17/2004 Contraindication-Medical Surgical HCTZ [HYDROCHLOROTHIAZIDE] 10/07/2005 Mental Status Change NAPROXEN SODIUM 02/12/2010 Contraindication-Medical Surgical PAXIL [PAROXETINE] 05/17/2004 Contraindication-Medical Surgical SULFA (SULFONAMIDE ANTIBIOTICS) 12/26/2015 Unknown ZESTRIL [LISINOPRIL] 07/08/2007 Fully Assessed 08/30/2021 Allergies and current medication updated:Yes EXAM: Wt 173 lb (78.5kg) GENERAL: pleasant, female in no apparent distress PELVIC: Atrophic external genitalia, atrophic vagina with small amount of thin orange-tinged discharge. Posterior cervix has a scab on it. There is no active bleeding from the cervix. There is no bright red blood or clots in the vault. Speculum was gently removed so as not to disturb the scab on the posterior cervix. A straight catheterization was then done with a straight cath kit the usual sterile fashion. Approximately 40 cc of turbid yellow urine was returned. ASSESSMENT AND PLAN: Encounter Diagnosis ICD-10-CM 1. Recurrent UTI N39.0 URINE CULTURE URINALYSIS, WITH MICROSCOPIC CONSULT TO URO GYNECOLOGY 2. Mixed stress and urge urinary incontinence N39.46 URINE CULTURE URINALYSIS, WITH MICROSCOPIC CONSULT TO URO GYNECOLOGY Suspect UTI has not resolved, sent culture. Restart macrobid. Consult urogyn, may need more imaging or cystoscopy. Vaginal bleeding resolved. Ok to restart coumadin> Pathology negative, no uterine pathology of concern noted. Medical Decision Making Mona Hebert MD documented in this encounter [facility] 08-28-2021 History of Present illness Narrative Christian Landrum is a 86 year old female who presents for problem visit for vaginal bleeding. S/p hysteroscp[u D&C on 08/23/21 for PMB nad suspected polyp. No discrete polyp. Pathology pending. Has had waxing and waning vaginal bleeding since the surgery. Passed some clots over the weekend and was taken the emergency room. Her hemoglobin was 8 and stable. There is no active bleeding noted. Patient's Coumadin was held and she was started on some Aygestin and sent home. Bleeding continued to increase and today she passed a couple of clots again. She is felt kind of foggy, but denies palpitations, shortness of breath or feeling like she is in a pass out. She is not having a lot of pain, just some cramping with the bleeding. She is passing clots that are which she reports to be about half the size of her hand. OB History T3 L3 SAB0 IAB0 Ectopic0 Multiple0 Live Births0 Comment: Menarche 12 fftp 26. 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, estrogen receptor positive (HCC) 06/03/2017 Mitral valve disorders(424.0) and irregular heartbeat on occasion stress related Mixed stress and urge urinary incontinence Osteoarthrosis, unspecified whether generalized or localized, other specified sites 07/22 vit D 41 Other diseases of pharynx, not elsewhere classified(478.29) Other extrapyramidal disease and abnormal movement disorder PMH - PAST MEDICAL HISTORY OF benign mass on liver PMR (polymyalgia rheumatica) (HCC) 2012 Pure hypercholesterolemia Snoring 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 Symptomatic menopausal or female climacteric states IN HER 50S 05/22 NORMAL BONE DENSITY Syncope Thyroid disease 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 Unspecified hemorrhoids without mention of complication Hemorrhoids Unspecified sleep apnea use CPAP SEVERAL YRS UTI (lower urinary tract infection) 2013 frequent PAST SURGICAL HISTORY Procedure Laterality Date ABDOMINAL SURGERY HX APPENDECTOMY 1982 ovarian cyst at same time-one ovary removed right APPENDECTOMY BIOPSY BREAST OPEN INCISIONAL left breast twice BREAST LEFT FINE NEEDLE ASPIRATION left breast BREAST SURGERY HX BX BREAST NEEDLE CORE W/O IMAGING GUIDANCE SPX 06/24/2007 left breast BX BREAST W/DEVICE 1ST LESION STEREOTACTIC GUID 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, DCIS, LCIS BX/EXC LYMPH NODE OPEN DEEP AXILLARY NODE Right COLECTOMY PART W/CECOSTOMY 08/08/2009 sigmoid colectomy COLON SURGERY HX COLONOSCOPY FLX DX W/COLLJ SPEC WHEN PFRMD 04/19/2003 Colonoscopy COLONOSCOPY FLX DX W/COLLJ SPEC WHEN PFRMD 11/03/2014 Colonoscopy COLONOSCOPY FLX DX W/COLLJ SPEC WHEN PFRMD 11/15/2019 Colonoscopy COLONOSCOPY FLX DX W/COLLJ SPEC WHEN PFRMD 01/09/2021 repeat in 6 months COLONOSCOPY W/BIOPSY SINGLE/MULTIPLE 03/23/2010 Clean anastamosis at 15cm few right and lef sided diverticula COLSC FLX W/REMOVAL LESION BY HOT BX FORCEPS 04/27/2007 tubular adenoma COLSC FLX W/REMOVAL LESION BY HOT BX FORCEPS 09/28/2008 small polyp in cecum and 40cm, diverticulosis ESOPHAGOGASTRODUODENOSCOPY TRANSORAL DIAGNOSTIC 01/09/2021 HYSTEROSCOPY BX ENDOMETRIUM&/POLYPC W/WO D&C 08/23/2021 D&C for PMB INCISE FINGER TENDON SHEATH Right 06/28/2020 Right ring and little trigger finger releases INCISE FINGER TENDON SHEATH Left 09/28/2020 Left ring trigger finger release INSJ TUNNELED CTR VAD W/SUBQ PORT AGE 5 YR/> 10/06/2007 Right Subclavian MASTECTOMY, SIMPLE, COMPLETE 08/04/2007 left breast with SLND/ALND MASTECTOMY, SIMPLE, COMPLETE Right 08/29/2015 right mastectomy with SLND PAST SURGICAL HISTORY OF bilat CTR, had endometrial bx 2004 PAST SURGICAL HISTORY OF 12/2011 removal of lesion of Lt eyelid PAST SURGICAL HISTORY OF 1982 Rt ovary removed PAST SURGICAL HISTORY OF 01/03/2017 breast surgery REMOVE TONSILS/ADENOIDS,<12 Y/O SALPINGO-OOPHORECTOMY COMPL/PRTL UNI/BI SPX 08/08/2009 left Salpingo-oophorectomy SHAVING SKIN LESION 1 S/N/H/F/G DIAM 0.6-1.0 CM 09/2017 squamous cell SKIN BIOPSY HX TONSILLECTOMY HX TONSILLECTOMY PRIMARY/SECONDARY <AGE 12 1945 Tonsillectomy FAMILY HISTORY Problem Relation Age of Onset other ( age 59 MA) Mother hypertension and TB other (pancreatic cancer) Father Breast Cancer Sister diagnosed at age 53 Breast Cancer Maternal Aunt diagnosed postmenopausal Breast Cancer Other 2 maternal first cousins Breast Cancer Other maternal cousins Breast Cancer Other maternal great grandmother other (sinus cavity CA) Son other (myeloma) Brother other (healthy) Sister other (ovarian cancer) Sister paternal grandmother Social History Tobacco Use Smoking status: Never Smoker Smokeless tobacco: Never Used Vaping Use Vaping Use: Never used Substance Use Topics Alcohol use: No Drug use: No Current Outpatient Medications Medication Sig metoprolol succinate ER (TOPROL XL) 25 mg 24 hr tablet Take 1 tablet by mouth once daily. dpaishz-ddzzvowdb-vmfslaa D3 500 mg-5 mcg (200 unit) per tablet Take 1 tablet by mouth once daily. furosemide (LASIX) 20 mg tablet Take 1 tablet by mouth every other day in the morning. predniSONE (DELTASONE) 5 mg tablet Take 1 tablet by mouth once daily. (Patient taking differently: Take 5 mg by mouth once daily as needed (RA exacerbation). ) omeprazole (PRILOSEC) 40 mg capsule Take 1 capsule by mouth once daily. fluticasone (FLONASE) 50 mcg/actuation nasal spray Use 2 Sprays in each nostril once daily. MEDICAL SUPPLY Zippered compression stockings.- 1 pair. levothyroxine (LEVOXYL) 25 mcg tablet Take 1 tablet by mouth once daily. Take on empty stomach. For Thyroid escitalopram oxalate (LEXAPRO) 10 mg tablet Take 1 tablet by mouth once daily. gabapentin (NEURONTIN) 600 mg tablet Take 0.5 tablets by mouth once daily. (Patient taking differently: Take 300 mg by mouth daily at bedtime. ) warfarin (COUMADIN) 1 mg tablet 2 mg every Tue; 1 mg all other days diclofenac sodium (VOLTAREN) 1 % topical gel Apply 4 g to affected area as needed. triamcinolone acetonide (NASACORT AQ) 55 mcg nasal inhaler Use 2 Sprays in the nose once daily. (Patient taking differently: Use 2 Sprays in the nose once daily as needed. ) docusate sodium (COLACE) 100 mg capsule Take 1 capsule by mouth twice daily as needed for Constipation. cetirizine (ZYRTEC) 10 mg tablet Take 1 tablet by mouth once daily. MULTIVITAMIN TAB Take 1 tablet by mouth once daily. No current facility-administered medications for this visit. Allergies As of Date: 08/28/2021 Allergen Noted Reaction CLINDAMYCIN 03/05/2016 Other: See Comments and Contraindication-Medical Surgical KEFLEX [CEPHALEXIN] 01/06/2019 Other: See Comments and Contraindication-Medical Surgical NAPROSYN [NAPROXEN] 02/12/2010 Other: See Comments DESMOND INHIBITORS 05/17/2004 Cough ADHESIVES [OTHER] 10/14/2007 Other: See Comments ARTHROTEC 50 [DICLOFENAC-MISOPROS*06/24/2007 Diarrhea BLEPHAMIDE [SULFACETAMIDE-PREDNIS*05/18/2010 Cough DITROPAN [OXYBUTYNIN] 06/20/2020 Other: See Comments FLAGYL [METRONIDAZOLE HCL] 02/17/2010 Mental Status Change and Shortness of Breath FLEXERIL [CYCLOBENZAPRINE] 05/17/2004 Contraindication-Medical Surgical HCTZ [HYDROCHLOROTHIAZIDE] 10/07/2005 Mental Status Change NAPROXEN SODIUM 02/12/2010 Contraindication-Medical Surgical PAXIL [PAROXETINE] 05/17/2004 Contraindication-Medical Surgical SULFA (SULFONAMIDE ANTIBIOTICS) 12/26/2015 Unknown ZESTRIL [LISINOPRIL] 07/08/2007 Fully Assessed 08/28/2021 Allergies and current medication updated:Yes EXAM: There were no vitals taken for this visit. GENERAL: pleasant, female in no apparent distress PELVIC: external genitalia normal, normal Bartholin's glands, urethra, [place]'s glands, no vulvar lesions, good vaginal support, physiologic discharge present, normal appearing perineal body and perianal region, very high, flush cervix with a clot at the external cervical os. I wiped that clot away more active bleeding is noted. Noted that she seems to be bleeding from the tenaculum site on the posterior cervix more than from the endometrial canal. I wiped the blood away several times and bright red blood appeared at the posterior cervical lip. Monsel solution and pressure were placed on the cervix. After 2 minutes there is no active bleeding from the site. 1 radiopaque sponge was packed into the vagina. BIMANUAL: uterus normal size, shape and consistency, no adnexal masses and non-tender ASSESSMENT AND PLAN: Encounter Diagnosis ICD-10-CM 1. Old laceration of cervix uteri N88.1 2. Abnormal uterine bleeding (AUB) N93.9 CBC is stable. Encouraged to push fluids, call if bleeding increases again, she has chest pain palpitations or other issues. She has had chronic anemia and is tolerating this well. However, patient and her daughter understand that if the bleeding acutely worsens we need to see her immediately as we do not want her anemia to acutely worsen. Pathology is pending. Return in 2 to 3 days or as needed for removal of the packing. Hold Coumadin until we are certain that the cervix is again be hemostatic. Patient and her daughter agree with the plan. Medical Decision Making Mona Hebert MD documented in this encounter [facility] 08-26-2021 History of Present illness Narrative Patient underwent hysteroscopy D&C at [facility] on 08/23/2021 without complications. She was discharged home with routine instructions and follow-up. Pathology is pending. No discrete polyp visualized. Mona Hebert MD documented in this encounter [facility] 08-22-2021 Miscellaneous Notes [facility] Ambulatory Pharmacy Anticoagulation Clinic Anticoagulation Episode Summary Anticoagulation Care Providers Provider Role Specialty Phone number Ariel Sainz MD [facility] Internal Medicine [phone] Christian Landrum is a 86 year old year old female patient being evaluated today for a Telemanagement visit. Patient is currently on the following anticoagulant(s) Warfarin. Labs PT INR (no units) Date Value 06/06/2021 3.1 (biotel) 05/23/2021 2.5 (biotel) 03/15/2021 1.9 INR Home CoaguChek (no units) Date Value 08/22/2021 2.7 08/17/2021 2.6 08/14/2021 2.2 Hemoglobin (g/dL) Date Value 08/13/2021 8.2 04/11/2021 11.8 Hematocrit (%) Date Value 08/13/2021 25.6 04/11/2021 36.5 Platelet Count (k/uL) Date Value 08/13/2021 108 04/11/2021 142 Creatinine (mg/dL) Date Value 08/13/2021 0.74 08/12/2021 0.78 2021 0.71 03/27/2021 0.61 02/27/2021 0.69 02/09/2021 0.69 Bilirubin, Total (mg/dL) Date Value 08/13/2021 0.5 03/27/2021 0.5 ALT (U/L) Date Value 08/13/2021 14 03/27/2021 18 AST (U/L) Date Value 08/13/2021 28 03/27/2021 36 Estimated Creatinine Clearance: 58.4 mL/min (based on SCr of 0.74 mg/dL). ALLERGIES Allergen Reactions Clindamycin Other: See Comments, Contraindication-Medical Surgical Should not be prescribed due to past history of c diff Keflex [Cephalexin] Other: See Comments, Contraindication-Medical Surgical Patient states this caused C diff Naprosyn [Naproxen] Other: See Comments bleeding Desmond Inhibitors Cough Adhesives [Other] Other: See Comments Local skin reaction with skin tears Arthrotec 50 [Diclo* Diarrhea Blephamide [Sulface* Cough Ditropan [Oxybutyni* Other: See Comments Severe dryness of nasal passages, bleeding from the nose, constipation and sneezing Flagyl [Metronidazo* Mental Status Change, Shortness of Breath Anxiety Flexeril [Cyclobenz* Contraindication-Medical Surgical urinary urgency Hctz [Hydrochloroth* Mental Status Change felt strange Naproxen Sodium Contraindication-Medical Surgical GI Bleeding Paxil [Paroxetine] Contraindication-Medical Surgical urinary urgency Sulfa (Sulfonamide * Unknown Zestril [Lisinopril] Indication for Warfarin: shelter (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 anticoagulants Paroxysmal atrial fibrillation (hcc) Anticoagulation Episode Summary Current INR goal: 2.0-3.0 Assessment: INR result of 2.7 is therapeutic She is scheduled for a D&C tomorrow w/ polypectomy and was advised to continue her warfarin. She did miss her warfarin yesterday - it was 2mg. Still taking macrobid for a UTI. Plan: Called and spoke to patient/caregiver Advised patient to continue current weekly dose Next home INR check scheduled on 09/05/2021 Patient verbalizes understanding of the plan. Patient denies need for refills. Jerrica Rothman RPh Clinical Pharmacist, Pharmacy Anticoagulation Clinic Pharmacy Anticoagulation Clinic Pager: [phone] . documented in this encounter [facility] 08-17-2021 Miscellaneous Notes [facility] Ambulatory Pharmacy Anticoagulation Clinic Anticoagulation Episode Summary Anticoagulation Care Providers Provider Role Specialty Phone number Ariel Sainz MD Responsible Internal Medicine [phone] Christian Landrum is a 86 year old year old female patient being evaluated today for a Telemanagement visit. Patient is currently on the following anticoagulant(s) Warfarin. Labs PT INR (no units) Date Value 06/06/2021 3.1 (biotel) 05/23/2021 2.5 (biotel) 03/15/2021 1.9 INR (no units) Date Value 08/13/2021 2.0 08/12/2021 2.0 INR Home CoaguChek (no units) Date Value 08/17/2021 2.6 08/14/2021 2.2 07/31/2021 2.6 Hemoglobin (g/dL) Date Value 08/13/2021 8.2 04/11/2021 11.8 Hematocrit (%) Date Value 08/13/2021 25.6 04/11/2021 36.5 Platelet Count (k/uL) Date Value 08/13/2021 108 04/11/2021 142 Creatinine (mg/dL) Date Value 08/13/2021 0.74 08/12/2021 0.78 2021 0.71 03/27/2021 0.61 02/27/2021 0.69 02/09/2021 0.69 Bilirubin, Total (mg/dL) Date Value 08/13/2021 0.5 03/27/2021 0.5 ALT (U/L) Date Value 08/13/2021 14 03/27/2021 18 AST (U/L) Date Value 08/13/2021 28 03/27/2021 36 Estimated Creatinine Clearance: 58.4 mL/min (based on SCr of 0.74 mg/dL). ALLERGIES Allergen Reactions Clindamycin Other: See Comments, Contraindication-Medical Surgical Should not be prescribed due to past history of c diff Keflex [Cephalexin] Other: See Comments, Contraindication-Medical Surgical Patient states this caused C diff Naprosyn [Naproxen] Other: See Comments bleeding Desmond Inhibitors Cough Adhesives [Other] Other: See Comments Local skin reaction with skin tears Arthrotec 50 [Diclo* Diarrhea Blephamide [Sulface* Cough Ditropan [Oxybutyni* Other: See Comments Severe dryness of nasal passages, bleeding from the nose, constipation and sneezing Flagyl [Metronidazo* Mental Status Change, Shortness of Breath Anxiety Flexeril [Cyclobenz* Contraindication-Medical Surgical urinary urgency Hctz [Hydrochloroth* Mental Status Change felt strange Naproxen Sodium Contraindication-Medical Surgical GI Bleeding Paxil [Paroxetine] Contraindication-Medical Surgical urinary urgency Sulfa (Sulfonamide * Unknown Zestril [Lisinopril] Indication for Warfarin: 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 Patient denies need for refills. Corinna Arenas RPh Clinical Pharmacist, Pharmacy Anticoagulation Clinic Pharmacy Anticoagulation Clinic Pager: [phone] . documented in this encounter [facility] 08-16-2021 Miscellaneous Notes Patient is going to check with her daughter to see if she will be able to have her surgery on 08/23/2021 Patient notified. 2 week Post Op scheduled. Juliet Cuevas RN Left message to call office. Patient is scheduled at [facility] for surgery on 08/29/2021 @ 7:[address] [facility] will call with arrival time.Phone PAT is 08/23/2021 8:00 am. Patient needs 2 week post-op documented in this encounter [facility] 08-15-2021 History and physical note Pre-Op History and Physical HPI: The patient is a 86 year old female presenting for pre-operative visit. She is scheduled for Hysteroscopy D&C, polyp-ectomy for PMB, thickened endometrium, endometrial polyp on 08/23/21. Procedure discussed along with risks, benefits and complications. Other alternatives discussed for management. Consent form signed? Yes. PAST MEDICAL HISTORY Diagnosis Date Abdominal pain, left lower quadrant long standing Arrhythmia Arthritis Asthma Atrial fibrillation (HCC) 2009 Atrophic vaginitis Benign neoplasm of colon C. 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, estrogen receptor positive (HCC) 06/03/2017 Mitral valve disorders(424.0) and irregular heartbeat on occasion stress related Mixed stress and urge urinary incontinence Osteoarthrosis, unspecified whether generalized or localized, other specified sites 07/22 vit D 41 Other diseases of pharynx, not elsewhere classified(478.29) Other extrapyramidal disease and abnormal movement disorder PMH - PAST MEDICAL HISTORY OF benign mass on liver PMR (polymyalgia rheumatica) (HCC) 2012 Pure hypercholesterolemia Snoring 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 Symptomatic menopausal or female climacteric states IN HER 50S 05/22 NORMAL BONE DENSITY Syncope Thyroid disease 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 Unspecified hemorrhoids without mention of complication Hemorrhoids Unspecified sleep apnea use CPAP SEVERAL YRS UTI (lower urinary tract infection) 2012 frequent PAST SURGICAL HISTORY Procedure Laterality Date ABDOMINAL SURGERY HX APPENDECTOMY 1982 ovarian cyst at same time-one ovary removed right APPENDECTOMY BIOPSY BREAST OPEN INCISIONAL left breast twice BREAST LEFT FINE NEEDLE ASPIRATION left breast BREAST SURGERY HX BX BREAST NEEDLE CORE W/O IMAGING GUIDANCE SPX 06/24/2007 left breast BX BREAST W/DEVICE 1ST LESION STEREOTACTIC GUID 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, DCIS, LCIS BX/EXC LYMPH NODE OPEN DEEP AXILLARY NODE Right COLECTOMY PART W/CECOSTOMY 08/08/2009 sigmoid colectomy COLON SURGERY HX COLONOSCOPY FLX DX W/COLLJ SPEC WHEN PFRMD 04/19/2003 Colonoscopy COLONOSCOPY FLX DX W/COLLJ SPEC WHEN PFRMD 11/03/2014 Colonoscopy COLONOSCOPY FLX DX W/COLLJ SPEC WHEN PFRMD 11/15/2019 Colonoscopy COLONOSCOPY FLX DX W/COLLJ SPEC WHEN PFRMD 01/09/2021 repeat in 6 months COLONOSCOPY W/BIOPSY SINGLE/MULTIPLE 03/23/2010 Clean anastamosis at 15cm few right and lef sided diverticula COLSC FLX W/REMOVAL LESION BY HOT BX FORCEPS 04/27/2007 tubular adenoma COLSC FLX W/REMOVAL LESION BY HOT BX FORCEPS 09/28/2008 small polyp in cecum and 40cm, diverticulosis ESOPHAGOGASTRODUODENOSCOPY TRANSORAL DIAGNOSTIC 01/09/2021 INCISE FINGER TENDON SHEATH Right 06/28/2020 Right ring and little trigger finger releases INCISE FINGER TENDON SHEATH Left 09/28/2020 Left ring trigger finger release INSJ TUNNELED CTR VAD W/SUBQ PORT AGE 5 YR/> 10/06/2007 Right Subclavian MASTECTOMY, SIMPLE, COMPLETE 08/04/2007 left breast with SLND/ALND MASTECTOMY, SIMPLE, COMPLETE Right 08/29/2015 right mastectomy with SLND PAST SURGICAL HISTORY OF bilat CTR, had endometrial bx 2004 PAST SURGICAL HISTORY OF 12/2011 removal of lesion of Lt eyelid PAST SURGICAL HISTORY OF 1982 Rt ovary removed PAST SURGICAL HISTORY OF 01/03/2017 breast surgery REMOVE TONSILS/ADENOIDS,<12 Y/O SALPINGO-OOPHORECTOMY COMPL/PRTL UNI/BI SPX 08/08/2009 left Salpingo-oophorectomy SHAVING SKIN LESION 1 S/N/H/F/G DIAM 0.6-1.0 CM 09/2017 squamous cell SKIN BIOPSY HX TONSILLECTOMY HX TONSILLECTOMY PRIMARY/SECONDARY <AGE 12 1945 Tonsillectomy Current Outpatient Medications Medication Sig Dispense Refill phenazopyridine (PYRIDIUM, GERIDIUM) 200 mg tablet Take 1 tablet by mouth three times daily as needed for up to 5 days. 15 tablet 0 metoprolol succinate ER (TOPROL XL) 25 mg 24 hr tablet Take 1 tablet by mouth once daily. 90 tablet 3 skghtbc-kkghglrys-fqgrsfz D3 500 mg-5 mcg (200 unit) per tablet Take 1 tablet by mouth once daily. 90 tablet 3 furosemide (LASIX) 20 mg tablet Take 1 tablet by mouth every other day in the morning. 45 tablet 3 predniSONE (DELTASONE) 5 mg tablet Take 1 tablet by mouth once daily. (Patient taking differently: Take 5 mg by mouth once daily as needed (RA exacerbation). ) 30 tablet 5 omeprazole (PRILOSEC) 40 mg capsule Take 1 capsule by mouth once daily. 90 capsule 0 fluticasone (FLONASE) 50 mcg/actuation nasal spray Use 2 Sprays in each nostril once daily. MEDICAL SUPPLY Zippered compression stockings.- 1 pair. 2 Each 1 levothyroxine (LEVOXYL) 25 mcg tablet Take 1 tablet by mouth once daily. Take on empty stomach. For Thyroid 90 tablet 3 escitalopram oxalate (LEXAPRO) 10 mg tablet Take 1 tablet by mouth once daily. 90 tablet 3 gabapentin (NEURONTIN) 600 mg tablet Take 0.5 tablets by mouth once daily. (Patient taking differently: Take 300 mg by mouth daily at bedtime. ) 45 tablet 3 warfarin (COUMADIN) 1 mg tablet 2 mg every Tu; 1 mg all other days 90 tablet 1 diclofenac sodium (VOLTAREN) 1 % topical gel Apply 4 g to affected area as needed. 1 Tube 5 triamcinolone acetonide (NASACORT AQ) 55 mcg nasal inhaler Use 2 Sprays in the nose once daily. (Patient taking differently: Use 2 Sprays in the nose once daily as needed. ) 1 Bottle 2 docusate sodium (COLACE) 100 mg capsule Take 1 capsule by mouth twice daily as needed for Constipation. 60 capsule 1 cetirizine (ZYRTEC) 10 mg tablet Take 1 tablet by mouth once daily. 90 tablet 3 MULTIVITAMIN TAB Take 1 tablet by mouth once daily. 0 miSOPROStol (CYTOTEC) 200 mcg tablet Use 2 tablets vaginally as directed for [address] 2 tablets vaginally qhs before the procedure 2 tablet 0 nitrofurantoin monohydrate and macrocrystal (MACROBID) 100 mg capsule Take 1 capsule by mouth twice daily for 10 days. 20 capsule 0 No current facility-administered medications for this visit. ALLERGIES: Clindamycin, Keflex [Cephalexin], Naprosyn [Naproxen], Desmond Inhibitors, Adhesives [Other], Arthrotec 50 [Diclofenac-Misoprostol], Blephamide [Sulfacetamide-Prednisolone], Ditropan [Oxybutynin], Flagyl [Metronidazole Hcl], Flexeril [Cyclobenzaprine], Hctz [Hydrochlorothiazide], Naproxen Sodium, Paxil [Paroxetine], Sulfa (Sulfonamide Antibiotics), and Zestril [Lisinopril] PERSONAL HISTORY: Social History Tobacco Use Smoking status: Never Smoker Smokeless tobacco: Never Used Vaping Use Vaping Use: Never used Substance Use Topics Alcohol use: No Drug use: No FAMILY HISTORY: FAMILY HISTORY Problem Relation Age of Onset other ( age 59 [place]) Mother hypertension and TB other (pancreatic cancer) Father Breast Cancer Sister diagnosed at age 53 Breast Cancer Maternal Aunt diagnosed postmenopausal Breast Cancer Other 2 maternal first cousins Breast Cancer Other maternal cousins Breast Cancer Other maternal great grandmother other (sinus cavity CA) Son other (myeloma) Brother other (healthy) Sister other (ovarian cancer) Sister paternal grandmother REVIEW OF SYMPTOMS: No CP or palpitations. No VTE PHYSICAL EXAMINATION: VITALS: Blood pressure 118/58, weight 173 lb (78.5 kg). GENERAL: The patient is well nourished, well hydrated in no acute distress. , The patient is oriented to time, place, and person. NECK: Supple. No lynphadenopathy, normal thyroid, no thyromegaly. LUNGS: Clear to auscultation bilaterally. no wheezes, rhonchi or rales HEART: Regular rate and rhythm, Normal heart sounds and No murmurs or gallops IMPRESSION: PLAN: PMB, thickened endometrium, endometrial polyp The risks/benefits/alternatives and personal involved for the planned hysteroscopy D&C w/ polyp resection were reviewed with the patient. Her questions were answered to her satisfaction and she desires to proceed. Consent was signed. I reviewed with her postop instructions and expectations. I have reviewed and updated past medical and surgical history, medications and allergies Mona Hebert M.D. documented in this encounter [facility] 08-15-2021 History of Present illness Narrative Jayro liz is a 86 year old female who presents for problem visit for f/u PMB. HPI: Recently got out of the hospital for a fever and infection. Her the day before she got to the hospital. Has intermittent vaginal bleeding. Patient presents with her daughter today. Feels like she gets a lot of vaginal dryness despite the vaginal estrogen. OB History T3 L3 SAB0 IAB0 Ectopic0 Multiple0 Live Births0 Comment: Menarche 12 fftp 26. natural menopause 50+ Menarche: 12; Age at 1st : 26; LIBERTY/BSO at age 51 due to ovarian tumor President [employer] History LMP: Postmenopausal Age at Menarche: Age at First : Age at Menopause: [employer] History Comments: Sexual Activity: Not Currently; Male Contraception: No contraception data on record PAST MEDICAL HISTORY Diagnosis Date Abdominal pain, left lower quadrant long standing Arrhythmia Arthritis Asthma Atrial fibrillation (HCC) 2009 Atrophic vaginitis Benign neoplasm of colon C. 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, estrogen receptor positive (HCC) 06/03/2017 Mitral valve disorders(424.0) and irregular heartbeat on occasion stress related Mixed stress and urge urinary incontinence Osteoarthrosis, unspecified whether generalized or localized, other specified sites 07/22 vit D 41 Other diseases of pharynx, not elsewhere classified(478.29) Other extrapyramidal disease and abnormal movement disorder PMH - PAST MEDICAL HISTORY OF benign mass on liver PMR (polymyalgia rheumatica) (HCC) 2012 Pure hypercholesterolemia Snoring 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 Symptomatic menopausal or female climacteric states IN HER 50S 05/22 NORMAL BONE DENSITY Syncope Thyroid disease 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 Unspecified hemorrhoids without mention of complication Hemorrhoids Unspecified sleep apnea use CPAP SEVERAL YRS UTI (lower urinary tract infection) 2012 frequent PAST SURGICAL HISTORY Procedure Laterality Date ABDOMINAL SURGERY HX APPENDECTOMY 1982 ovarian cyst at same time-one ovary removed right APPENDECTOMY BIOPSY BREAST OPEN INCISIONAL left breast twice BREAST LEFT FINE NEEDLE ASPIRATION left breast BREAST SURGERY HX BX BREAST NEEDLE CORE W/O IMAGING GUIDANCE SPX 06/24/2007 left breast BX BREAST W/DEVICE 1ST LESION STEREOTACTIC GUID 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, DCIS, LCIS BX/EXC LYMPH NODE OPEN DEEP AXILLARY NODE Right COLECTOMY PART W/CECOSTOMY 08/08/2009 sigmoid colectomy COLON SURGERY HX COLONOSCOPY FLX DX W/COLLJ SPEC WHEN PFRMD 04/19/2003 Colonoscopy COLONOSCOPY FLX DX W/COLLJ SPEC WHEN PFRMD 11/03/2014 Colonoscopy COLONOSCOPY FLX DX W/COLLJ SPEC WHEN PFRMD 11/15/2019 Colonoscopy COLONOSCOPY FLX DX W/COLLJ SPEC WHEN PFRMD 01/09/2021 repeat in 6 months COLONOSCOPY W/BIOPSY SINGLE/MULTIPLE 03/23/2010 Clean anastamosis at 15cm few right and lef sided diverticula COLSC FLX W/REMOVAL LESION BY HOT BX FORCEPS 04/27/2007 tubular adenoma COLSC FLX W/REMOVAL LESION BY HOT BX FORCEPS 09/28/2008 small polyp in cecum and 40cm, diverticulosis ESOPHAGOGASTRODUODENOSCOPY TRANSORAL DIAGNOSTIC 01/09/2021 INCISE FINGER TENDON SHEATH Right 06/28/2020 Right ring and little trigger finger releases INCISE FINGER TENDON SHEATH Left 09/28/2020 Left ring trigger finger release INSJ TUNNELED CTR VAD W/SUBQ PORT AGE 5 YR/> 10/06/2007 Right Subclavian MASTECTOMY, SIMPLE, COMPLETE 08/04/2007 left breast with SLND/ALND MASTECTOMY, SIMPLE, COMPLETE Right 08/29/2015 right mastectomy with SLND PAST SURGICAL HISTORY OF bilat CTR, had endometrial bx 2004 PAST SURGICAL HISTORY OF 12/2011 removal of lesion of Lt eyelid PAST SURGICAL HISTORY OF 1982 Rt ovary removed PAST SURGICAL HISTORY OF 01/03/2017 breast surgery REMOVE TONSILS/ADENOIDS,<12 Y/O SALPINGO-OOPHORECTOMY COMPL/PRTL UNI/BI SPX 08/08/2009 left Salpingo-oophorectomy SHAVING SKIN LESION 1 S/N/H/F/G DIAM 0.6-1.0 CM 09/2017 squamous cell SKIN BIOPSY HX TONSILLECTOMY HX TONSILLECTOMY PRIMARY/SECONDARY <AGE 12 1945 Tonsillectomy FAMILY HISTORY Problem Relation Age of Onset other ( age 59 MA) Mother hypertension and TB other (pancreatic cancer) Father Breast Cancer Sister diagnosed at age 53 Breast Cancer Maternal Aunt diagnosed postmenopausal Breast Cancer Other 2 maternal first cousins Breast Cancer Other maternal cousins Breast Cancer Other maternal great grandmother other (sinus cavity CA) Son other (myeloma) Brother other (healthy) Sister other (ovarian cancer) Sister paternal grandmother Social History Tobacco Use Smoking status: Never Smoker Smokeless tobacco: Never Used Vaping Use Vaping Use: Never used Substance Use Topics Alcohol use: No Drug use: No Current Outpatient Medications Medication Sig ciprofloxacin HCl (CIPRO) 500 mg tablet Take 1 tablet by mouth every 12 hours for 7 days. phenazopyridine (PYRIDIUM, GERIDIUM) 200 mg tablet Take 1 tablet by mouth three times daily as needed for up to 5 days. metoprolol succinate ER (TOPROL XL) 25 mg 24 hr tablet Take 1 tablet by mouth once daily. xlhhtww-cijwtxywd-wvneoqq D3 500 mg-5 mcg (200 unit) per tablet Take 1 tablet by mouth once daily. furosemide (LASIX) 20 mg tablet Take 1 tablet by mouth every other day in the morning. predniSONE (DELTASONE) 5 mg tablet Take 1 tablet by mouth once daily. (Patient taking differently: Take 5 mg by mouth once daily as needed (RA exacerbation). ) omeprazole (PRILOSEC) 40 mg capsule Take 1 capsule by mouth once daily. fluticasone (FLONASE) 50 mcg/actuation nasal spray Use 2 Sprays in each nostril once daily. MEDICAL SUPPLY Zippered compression stockings.- 1 pair. levothyroxine (LEVOXYL) 25 mcg tablet Take 1 tablet by mouth once daily. Take on empty stomach. For Thyroid escitalopram oxalate (LEXAPRO) 10 mg tablet Take 1 tablet by mouth once daily. gabapentin (NEURONTIN) 600 mg tablet Take 0.5 tablets by mouth once daily. (Patient taking differently: Take 300 mg by mouth daily at bedtime. ) warfarin (COUMADIN) 1 mg tablet 2 mg every Tue; 1 mg all other days diclofenac sodium (VOLTAREN) 1 % topical gel Apply 4 g to affected area as needed. triamcinolone acetonide (NASACORT AQ) 55 mcg nasal inhaler Use 2 Sprays in the nose once daily. (Patient taking differently: Use 2 Sprays in the nose once daily as needed. ) docusate sodium (COLACE) 100 mg capsule Take 1 capsule by mouth twice daily as needed for Constipation. cetirizine (ZYRTEC) 10 mg tablet Take 1 tablet by mouth once daily. MULTIVITAMIN TAB Take 1 tablet by mouth once daily. No current facility-administered medications for this visit. Allergies As of Date: 08/15/2021 Allergen Noted Reaction CLINDAMYCIN 03/05/2016 Other: See Comments and Contraindication-Medical Surgical KEFLEX [CEPHALEXIN] 01/06/2019 Other: See Comments and Contraindication-Medical Surgical NAPROSYN [NAPROXEN] 02/12/2010 Other: See Comments DESMOND INHIBITORS 05/17/2004 Cough ADHESIVES [OTHER] 10/14/2007 Other: See Comments ARTHROTEC 50 [DICLOFENAC-MISOPROS*06/24/2007 Diarrhea BLEPHAMIDE [SULFACETAMIDE-PREDNIS*05/18/2010 Cough DITROPAN [OXYBUTYNIN] 06/20/2020 Other: See Comments FLAGYL [METRONIDAZOLE HCL] 02/17/2010 Mental Status Change and Shortness of Breath FLEXERIL [CYCLOBENZAPRINE] 05/17/2004 Contraindication-Medical Surgical HCTZ [HYDROCHLOROTHIAZIDE] 10/07/2005 Mental Status Change NAPROXEN SODIUM 02/12/2010 Contraindication-Medical Surgical PAXIL [PAROXETINE] 05/17/2004 Contraindication-Medical Surgical SULFA (SULFONAMIDE ANTIBIOTICS) 12/26/2015 Unknown ZESTRIL [LISINOPRIL] 07/08/2007 Fully Assessed 08/13/2021 Allergies and current medication updated:Yes EXAM: There were no vitals taken for this visit. GENERAL: pleasant, female in no apparent distress ASSESSMENT AND PLAN: Postmenopausal bleeding and thickened endometrium. Likely endometrial polyp. Risk benefits alternatives to hysteroscopy D&C with resection were discussed with patient, her questions were answered to her satisfaction she desires to proceed. Changed antibiotics for UTI to Levaquin. Discussed with the patient and her daughter that the susceptible antibiotics on the list were intravenous. Encouraged to f/u w/ urology for this. Change to macrobid as only PO susceptible one but not sure this is satisfactory group home. Use vaginal estrogne 2-3 times a week Patient is likely going to need a cholecystectomy but her surgeon wanted her to have the hysteroscopy D&C and the pathology returned on that before she proceeded with the more invasive cholecystectomy. Medical Decision Making Mona Hebert MD documented in this encounter [facility] 08-15-2021 Miscellaneous Notes Patient admitted to hospital. Nitrofurantion discontinued. An Ta APRN.CNP documented in this encounter [facility] 08-14-2021 Miscellaneous Notes [facility] Ambulatory Pharmacy Anticoagulation Clinic Anticoagulation Episode Summary Anticoagulation Care Providers Provider Role Specialty Phone number Ariel Sainz MD [facility] Internal Medicine [phone] Christian Landrum is a 86 year old year old female patient being evaluated today for a Telemanagement visit. Patient is currently on the following anticoagulant(s) Warfarin. Labs PT INR (no units) Date Value 06/06/2021 3.1 (biotel) 05/23/2021 2.5 (biotel) 03/15/2021 1.9 INR (no units) Date Value 08/13/2021 2.0 08/12/2021 2.0 2021 1.3 INR Home CoaguChek (no units) Date Value 08/14/2021 2.2 07/31/2021 2.6 07/04/2021 3.4 Hemoglobin (g/dL) Date Value 08/13/2021 8.2 04/11/2021 11.8 Hematocrit (%) Date Value 08/13/2021 25.6 04/11/2021 36.5 Platelet Count (k/uL) Date Value 08/13/2021 108 04/11/2021 142 Creatinine (mg/dL) Date Value 08/13/2021 0.74 08/12/2021 0.78 2021 0.71 03/27/2021 0.61 02/27/2021 0.69 02/09/2021 0.69 Bilirubin, Total (mg/dL) Date Value 08/13/2021 0.5 03/27/2021 0.5 ALT (U/L) Date Value 08/13/2021 14 03/27/2021 18 AST (U/L) Date Value 08/13/2021 28 03/27/2021 36 Estimated Creatinine Clearance: 58.2 mL/min (based on SCr of 0.74 mg/dL). ALLERGIES Allergen Reactions Clindamycin Other: See Comments, Contraindication-Medical Surgical Should not be prescribed due to past history of c diff Keflex [Cephalexin] Other: See Comments, Contraindication-Medical Surgical Patient states this caused C diff Naprosyn [Naproxen] Other: See Comments bleeding Desmond Inhibitors Cough Adhesives [Other] Other: See Comments Local skin reaction with skin tears Arthrotec 50 [Diclo* Diarrhea Blephamide [Sulface* Cough Ditropan [Oxybutyni* Other: See Comments Severe dryness of nasal passages, bleeding from the nose, constipation and sneezing Flagyl [Metronidazo* Mental Status Change, Shortness of Breath Anxiety Flexeril [Cyclobenz* Contraindication-Medical Surgical urinary urgency Hctz [Hydrochloroth* Mental Status Change felt strange Naproxen Sodium Contraindication-Medical Surgical GI Bleeding Paxil [Paroxetine] Contraindication-Medical Surgical urinary urgency Sulfa (Sulfonamide * Unknown Zestril [Lisinopril] Indication for Warfarin: Anticoagulation Episode Summary Current INR goal: 2.0-3.0 Assessment: INR result of 2.2 is therapeutic Plan: Called and spoke to patient/caregiver Advised patient to continue current weekly dose Next home INR check scheduled on 08/17/2021. Started 7 day course of cipro yesterday. Patient verbalizes understanding of the plan. Nury Andres RPh Clinical Pharmacist, Pharmacy Anticoagulation Clinic Pharmacy Anticoagulation Clinic Pager: [phone] . documented in this encounter [facility] 08-12-2021 Miscellaneous Notes Reason for Call: Daughter calling stating that mother is having difficulty urinating and feels as if she cannot empty her bladder, is passing pea sized clots and having blood in her urine, and on Coumadin. Patient had a temp of 100.4F 08/11 night but states no fever now. Culture has been collected but symptoms are worsening. Outcome: Daughter will drive her mother to [facility]. Reason for Disposition [1] Unable to urinate (or only a few drops) > 4 hours AND [2] bladder feels very full (e.g., palpable bladder or strong urge to urinate) Protocols used: URINE - BLOOD IN-ADULT- documented in this encounter [facility] 08-10-2021 Miscellaneous Notes Pt called and is notified of providers message and instructions. Pt voices understanding, states the next time she can get a ride in she will get it done. Maria A Khanna RN Please call patient and relay below information. Urine culture reordered. Thank you An Ta APRN.INGE Spoke with Pam in lab who spoke with main [facility] was having issues with those orders site wide and orders were cancelled and samples threw out. Patient will need to have new sample collected if still having symptoms. ----- Message from An Ta APRN.CNP sent at 08/10/2021 3:45 PM EDT ----- Please call lab to clarify culture. Was showing in process and now shows as canceled. Thank you An Ta APRN.MIMEOGRAPHER documented in this encounter [facility] 08-08-2021 History of Present illness Narrative CC: Patient presents with: Recheck: Hosp follow up, HPI Christian Landrum is a 86 year old female who presents today for hospital follow-up with daughter who drove her to appointment. Facility: [facility] Date of visit: 07/06/21 - 07/12/21 Reason for visit and diagnoses: abdominal pain, fever, yellowing of skin Hospital course: gallstones and history of cirrhosis - lab levels normalized post discharge, UTI with IV antibiotic treatment, right hip pain, concern for sepsis - hip aspiration normal. Discharge: UTI, Gallstones, and Cirrhosis Current symptoms: Feels much better now excpet has slight pain at end of urination. Is supposed to be on estrogen cream for prevention of UTIs, but has a questionable uterine polyp she is scheduled to have removed. Saw general surgery and will evaluate removing gallstones and do a colonoscopy after uterine polyp is addressed and she sees her sexton helper for her cirrhosis. Post discharge she spent 2 weks for OT and PT at [facility] where is currently on hospice. Now with home PT to continue with strengthening and balance. Lives in her condo alone at this time but daughter helps her out and drives her to Appointments. Daughter states patient is on prednisone for flare ups for RA, has not been seen in a while and unable to take anything outside of the prednisone related to her cirrhosis. Daughter is requesting we order her prednisone because patient is seeing so many specialists for her chronic condition. REVIEW OF SYSTEMS General: no fevers, no chills, no night sweats, no recurrent infections, no change in appetite, no change in energy and no significant changes in weight Respiratory: no cough, no wheezing, no shortness of breath, no hemoptysis Cardiovascular: no chest pain, no chest pressure, no palpitations and no swelling GI: No nausea, vomiting, or diarrhea : no increase in frequency, abdominal pain, or foul smelling urine Neurologic: No headache, weakness, numbness, tingling, dizziness, syncope. PAST MEDICAL HISTORY Diagnosis Date Abdominal pain, left lower quadrant long standing Arrhythmia Arthritis Asthma Atrial fibrillation (HCC) 2009 Atrophic vaginitis Benign neoplasm of colon C. 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, estrogen receptor positive (HCC) 06/03/2017 Mitral valve disorders(424.0) and irregular heartbeat on occasion stress related Mixed stress and urge urinary incontinence Osteoarthrosis, unspecified whether generalized or localized, other specified sites 07/22 vit D 41 Other diseases of pharynx, not elsewhere classified(478.29) Other extrapyramidal disease and abnormal movement disorder PMH - PAST MEDICAL HISTORY OF benign mass on liver PMR (polymyalgia rheumatica) (HCC) 2012 Pure hypercholesterolemia Snoring 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 Symptomatic menopausal or female climacteric states IN HER 50S 05/22 NORMAL BONE DENSITY Syncope Thyroid disease 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 Unspecified hemorrhoids without mention of complication Hemorrhoids Unspecified sleep apnea use CPAP SEVERAL YRS UTI (lower urinary tract infection) 2012 frequent PAST SURGICAL HISTORY Procedure Laterality Date ABDOMINAL SURGERY HX APPENDECTOMY 1982 ovarian cyst at same time-one ovary removed right APPENDECTOMY BIOPSY BREAST OPEN INCISIONAL left breast twice BREAST LEFT FINE NEEDLE ASPIRATION left breast BREAST SURGERY HX BX BREAST NEEDLE CORE W/O IMAGING GUIDANCE SPX 06/24/2007 left breast BX BREAST W/DEVICE 1ST LESION STEREOTACTIC GUID 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, DCIS, LCIS BX/EXC LYMPH NODE OPEN DEEP AXILLARY NODE Right COLECTOMY PART W/CECOSTOMY 08/08/2009 sigmoid colectomy COLON SURGERY HX COLONOSCOPY FLX DX W/COLLJ SPEC WHEN PFRMD 04/19/2003 Colonoscopy COLONOSCOPY FLX DX W/COLLJ SPEC WHEN PFRMD 11/03/2014 Colonoscopy COLONOSCOPY FLX DX W/COLLJ SPEC WHEN PFRMD 11/15/2019 Colonoscopy COLONOSCOPY FLX DX W/COLLJ SPEC WHEN PFRMD 01/09/2021 repeat in 6 months COLONOSCOPY W/BIOPSY SINGLE/MULTIPLE 03/23/2010 Clean anastamosis at 15cm few right and lef sided diverticula COLSC FLX W/REMOVAL LESION BY HOT BX FORCEPS 04/27/2007 tubular adenoma COLSC FLX W/REMOVAL LESION BY HOT BX FORCEPS 09/28/2008 small polyp in cecum and 40cm, diverticulosis ESOPHAGOGASTRODUODENOSCOPY TRANSORAL DIAGNOSTIC 01/09/2021 INCISE FINGER TENDON SHEATH Right 06/28/2020 Right ring and little trigger finger releases INCISE FINGER TENDON SHEATH Left 09/28/2020 Left ring trigger finger release INSJ TUNNELED CTR VAD W/SUBQ PORT AGE 5 YR/> 10/06/2007 Right Subclavian MASTECTOMY, SIMPLE, COMPLETE 08/04/2007 left breast with SLND/ALND MASTECTOMY, SIMPLE, COMPLETE Right 08/29/2015 right mastectomy with SLND PAST SURGICAL HISTORY OF bilat CTR, had endometrial bx 2004 PAST SURGICAL HISTORY OF 12/2011 removal of lesion of Lt eyelid PAST SURGICAL HISTORY OF 1982 Rt ovary removed PAST SURGICAL HISTORY OF 01/03/2017 breast surgery REMOVE TONSILS/ADENOIDS,<12 Y/O SALPINGO-OOPHORECTOMY COMPL/PRTL UNI/BI SPX 08/08/2009 left Salpingo-oophorectomy SHAVING SKIN LESION 1 S/N/H/F/G DIAM 0.6-1.0 CM 09/2017 squamous cell SKIN BIOPSY HX TONSILLECTOMY HX TONSILLECTOMY PRIMARY/SECONDARY <AGE 12 1945 Tonsillectomy ALLERGIES Clindamycin, Keflex [Cephalexin], Naprosyn [Naproxen], Desmond Inhibitors, Adhesives [Other], Arthrotec 50 [Diclofenac-Misoprostol], Blephamide [Sulfacetamide-Prednisolone], Ditropan [Oxybutynin], Flagyl [Metronidazole Hcl], Flexeril [Cyclobenzaprine], Hctz [Hydrochlorothiazide], Naproxen Sodium, Paxil [Paroxetine], Sulfa (Sulfonamide Antibiotics), and Zestril [Lisinopril] MEDICATIONS omeprazole (PRILOSEC) 40 mg capsule Take 1 capsule by mouth once daily. furosemide (LASIX) 20 mg tablet Take 1 tablet by mouth every other day in the morning. metoprolol succinate ER (TOPROL XL) 25 mg 24 hr tablet Take 1 tablet by mouth once daily. vlseuhf-qsyxkmxit-edomqwh D3 500 mg-5 mcg (200 unit) per tablet Take 1 tablet by mouth once daily. fluticasone (FLONASE) 50 mcg/actuation nasal spray Use 2 Sprays in each nostril once daily. MEDICAL SUPPLY Zippered compression stockings.- 1 pair. levothyroxine (LEVOXYL) 25 mcg tablet Take 1 tablet by mouth once daily. Take on empty stomach. For Thyroid escitalopram oxalate (LEXAPRO) 10 mg tablet Take 1 tablet by mouth once daily. gabapentin (NEURONTIN) 600 mg tablet Take 0.5 tablets by mouth once daily. warfarin (COUMADIN) 1 mg tablet 2 mg every Tue; 1 mg all other days predniSONE (DELTASONE) 5 mg tablet Take 1 tablet by mouth once daily. diclofenac sodium (VOLTAREN) 1 % topical gel Apply 4 g to affected area as needed. triamcinolone acetonide (NASACORT AQ) 55 mcg nasal inhaler Use 2 Sprays in the nose once daily. docusate sodium (COLACE) 100 mg capsule Take 1 capsule by mouth twice daily as needed for Constipation. cetirizine (ZYRTEC) 10 mg tablet Take 1 tablet by mouth once daily. MULTIVITAMIN TAB Take 1 tablet by mouth once daily. FAMILY HISTORY Problem Relation Age of Onset other ( age 59 [place]) Mother hypertension and TB other (pancreatic cancer) Father Breast Cancer Sister diagnosed at age 53 Breast Cancer Maternal Aunt diagnosed postmenopausal Breast Cancer Other 2 maternal first cousins Breast Cancer Other maternal cousins Breast Cancer Other maternal great grandmother other (sinus cavity CA) Son other (myeloma) Brother other (healthy) Sister other (ovarian cancer) Sister paternal grandmother Social History Tobacco Use Smoking status: Never Smoker Smokeless tobacco: Never Used Vaping Use Vaping Use: Never used Substance Use Topics Alcohol use: No Drug use: No PHYSICAL EXAM BP 116/66 Pulse 68 Resp 16 Wt 78 kg (172 lb) BMI 27.97 kg/m General Appearance: well appearing, in no acute distress, alert Eyes: conjunctiva pink and moist, no icterus, sclera white, non-injected Lungs: Lungs clear to auscultation. No wheezing, rhonchi, rales. Heart:Apical irregular (chronic A-fib) without murmur, gallop, or rubs. No ectopy Abdomen: Abdomen soft, non-tender. Bowel sounds normal. Negative CVA tenderness BUE Extremities: No deformities, edema, skin discoloration, clubbing or cyanosis. Good capillary refill. HEPATITIS A(1 of 2 - Risk 2-dose series) Never done PNEUMOCOCCAL: 65+(1 - PCV) Never done HEPATITIS B(1 of 3 - Risk 3-dose series) Never done SHINGRIX VACCINE(2 of 3) due on 08/02/2011 ADVANCE DIRECTIVE DISCUSSION Never done COVID-19 VACCINE(4 - Booster for Moderna series) due on 03/24/2021 COLONOSCOPY due on 01/09/2022 DTAP,TDAP,TD(2 - Td or Tdap) due on 11/17/2022 DIABETES SCREEN due on 2024 INFLUENZA Completed BONE DENSITY Addressed DATA REVIEWED: Most recent labs and imaging results. ASSESSMENT/PLAN: 1. History of recent hospitalization - ICD9: V13.9, ICD10: Z92.89 (primary diagnosis) - stable, going to scheduled follow ups. Most of acute symptoms are resolved 2. Dysuria - ICD9: 788.1, ICD10: R30.0 - urine dip positive for small leuks and trace blood - will send for further evaluation, if culture is positive treat with appropriate antibiotic - URINALYSIS, WITH MICROSCOPIC - URINE CULTURE - UA WITH CULTURE IF INDICATED 3. Recurrent UTI - ICD9: 599.0, ICD10: N39.0 As above 4. Cirrhosis of liver with ascites, unspecified hepatic cirrhosis type (HCC) - ICD9: 571.5, ICD10: K74.60, R18.8 - stable at this visit Continue with follow ups as directed by gastroenterology and general surgery - Go to ER for pain, fever, chest pain, shortness of breath, yellowing of skin, or any other urgent conditions. 5. Biliary colic - ICD9: 574.20, ICD10: K80.50 As above I spent 30 minutes in the visit, with more than 50% of the total [id number]-[id number] time of the visit in counseling / coordination of care. Prescription instructions reviewed with patient as applicable. Potential red flag symptoms discussed with the patient. Reviewed appropriate action plan to take if red flag symptoms occur. Patient agreeable to treatment plan. An Ta APRN.CNP documented in this encounter [facility] 07-31-2021 Miscellaneous Notes [facility] Ambulatory Pharmacy Anticoagulation Clinic Anticoagulation Episode Summary Anticoagulation Care Providers Provider Role Specialty Phone number Ariel Sainz MD [facility] Internal Medicine [phone] Christian Landrum is a 86 year old year old female patient being evaluated today for a Telemanagement visit. Patient is currently on the following anticoagulant(s) Warfarin. Labs PT INR (no units) Date Value 06/06/2021 3.1 (biotel) 05/23/2021 2.5 (biotel) 03/15/2021 1.9 INR (no units) Date Value 2021 1.3 07/11/2021 1.2 07/10/2021 1.3 INR Home CoaguChek (no units) Date Value 07/31/2021 2.6 07/04/2021 3.4 06/22/2021 2.1 Hemoglobin (g/dL) Date Value 2021 9.0 04/11/2021 11.8 Hematocrit (%) Date Value 2021 29.0 04/11/2021 36.5 Platelet Count (k/uL) Date Value 2021 214 04/11/2021 142 Creatinine (mg/dL) Date Value 2021 0.71 07/11/2021 0.80 07/10/2021 0.91 03/27/2021 0.61 02/27/2021 0.69 02/09/2021 0.69 Bilirubin, Total (mg/dL) Date Value 2021 0.7 03/27/2021 0.5 ALT (U/L) Date Value 2021 21 03/27/2021 18 AST (U/L) Date Value 2021 39 03/27/2021 36 Estimated Creatinine Clearance: 60.4 mL/min (based on SCr of 0.71 mg/dL). ALLERGIES Allergen Reactions Clindamycin Other: See Comments, Contraindication-Medical Surgical Should not be prescribed due to past history of c diff Keflex [Cephalexin] Other: See Comments, Contraindication-Medical Surgical Patient states this caused C diff Naprosyn [Naproxen] Other: See Comments bleeding Desmond Inhibitors Cough Adhesives [Other] Other: See Comments Local skin reaction with skin tears Arthrotec 50 [Diclo* Diarrhea Blephamide [Sulface* Cough Ditropan [Oxybutyni* Other: See Comments Severe dryness of nasal passages, bleeding from the nose, constipation and sneezing Flagyl [Metronidazo* Mental Status Change, Shortness of Breath Anxiety Flexeril [Cyclobenz* Contraindication-Medical Surgical urinary urgency Hctz [Hydrochloroth* Mental Status Change felt strange Naproxen Sodium Contraindication-Medical Surgical GI Bleeding Paxil [Paroxetine] Contraindication-Medical Surgical urinary urgency Sulfa (Sulfonamide * Unknown Zestril [Lisinopril] Indication for Warfarin: Anticoagulation Episode Summary Current INR goal: 2.0-3.0 Assessment: INR result of 2.6 is therapeutic Plan: Called and spoke to patient/caregiver Advised patient to continue current weekly dose. Patient was discharge from [facility] on 07/27 on 2mg Tu/1 mg all other days Next home INR check scheduled on 08/14/2021 Patient verbalizes understanding of the plan. Nury Andres RPh Clinical Pharmacist, Pharmacy Anticoagulation Clinic Pharmacy Anticoagulation Clinic Pager: [phone] . documented in this encounter [facility] 07-27-2021 Miscellaneous Notes Basilia Brown called and is notified of providers message. She voices understanding. Maria A Khanna, RN Provider agrees to follow. Thank you An Ta APRN.INGE Ricky Brown [facility], reports patient is being discharged from [facility] tomorrow with orders for PT & OT. Asking if pcp agrees to follow? Asking for reply today, as they plan to see patient on Friday. [phone] documented in this encounter [facility] 07-24-2021 Miscellaneous Notes LVM with patient and sent msg. Appointment with Sh[facility] on 07/27 needs rescheduled first available. Appt has been cancelled. documented in this encounter [facility] 07-20-2021 Miscellaneous Notes Left detailed message on identified voicemail. Juliet Cuevas RN It would be ok to start vaginal estrogen. This may help w/ UTI prevention as well. Mona Hebert MD Patient calling with update. She was originally scheduled 07/10/21 to discuss D&C, polypectomy more, but she ended up at [facility] last month for a week d/t multiple medical problems one of them a UTI. Calling today because she is starting with urinary frequency again and worsening vaginal dryness. She has not used estrace cream since 02/2021 sometime. Offered appointment today, but patient is still at [facility] for rehab. Advised to speak to nurse there regarding symptoms to get urine checked. Once she is discharged from there and/or can get a ride she plans to follow up with [facility] again. Asking in the mean time if she should start the vaginal estrogen cream back up or not. Did review RR's last note from 02/26/21 phone note regarding this too. Please advise. Inge Salter RN documented in this encounter [facility] 07-18-2021 Miscellaneous Notes Patient placed on PCC LTC list for follow up. Letty Guillory RN Pharmacy Anticoagulation Clinic INR was due today. Reviewed notes and found pt was recently hospitalized and discharged to SNF. Will forward to PAC team to f/u. documented in this encounter [facility] documented as of this encounter (statuses as of 07/11/2021) [facility] History of Past illness Narrative* Problem Noted Date Resolved Date Dysuria 07/06/2021 07/08/2021 Obesity, Class I, BMI 30-34.9 01/12/2021 GI bleed 01/12/2021 01/14/2021 Acute blood loss anemia 01/12/2021 01/15/20 21 LLQ pain 09/05/2017 04/09/2021 Overview: Added automatically from request for surgery [id number] 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, estrogen receptor positive 06/03/2017 07/06/2021 Personal history of breast cancer 12/18/2016 04/09/2021 Overview: Added automatically from request for surgery [id number] Permanent atrial fibrillation 12/26/2015 Diverticulitis of large inte angélica without perforation or abscess without bleeding 11/17/2015 04/09/2021 Lymphedema of arm 10/16/2015 04/09/2021 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 female breast 08/04/2015 04/09/2021 UTI (urinary tract infection) 07/27/2015 Overview: Estrogen is contraindicated for her breast cancer but she is not able to keep the UTI off. Tried to abx daily but developed a c diff. This plan is agreed upon by her onco and her urologist Last Assessment & Plan: Estrogen is contraindicated for her breast cancer but she is not able to keep the UTI off. Tried to abx daily but developed a c diff. This plan is agreed upon by her onco and her urologist Malignant neoplasm of right female breast 201504/09/2021 Overview: The patient had tamoxifen for 5 years and then a gap and resumed after getting cancer for the second time. Last Assessment & Plan: The patient had tamoxifen for 5 years and then a gap and resumed after getting cancer for the second time. Abnormal mammogram of right breast 07/17/2015 04/09/2021 Pain of both shoulder joints 02/21/2015 Other and unspecified noninf ectious gastroenteritis and colitis(558.9) 11/03/2014 11/03/2014 Other specified rheumatoid arthritis, multiple s ites 05/06/2014 07/01/2018 Overview: Dx: 2014 She is on methotrexate and plaquenil Last Assessment & Plan: Dx: 2014 She is on methotrexate and plaquenil Acne rosacea 11/07/2013 04/15/2014 Folliculitis 11/07/2013 04/15/2014 Inflamed seborrheic keratosis 11/07/2013 Xerosis cutis 11/07/2013 04/15/2014 Solar lentigo 11/07/2013 04/15/2014 Crowley angioma 11/07/2013 04/15/2014 Pruritus 11/07/2013 04/15/2014 Backache, unspecified 07/09/2013 04/15/2014 Cutaneous skin tags 12/12/2012 04/14/2013 Intradermal nevus 12/12/2012 04/14/2013 Melanocytic nevi of trunk 12/12/20122013 Dermatofibroma of lower leg 12/12/201203/18 Urinary tract infection 09/02/2012 04/15/19 15 Abdominal pain 09/02/2012 04/15/2014 C. difficile colitis 09/02/2012 04/15/2014 Diverticulitis of colon (wit hout mention of hemorrhage)(562.11) 06/15/2012 04/15/2014 Other Seborrheic Keratoses 05/29/201204/15 Actinic skin damage 05/29/2012 04/15/2014 Epidermal cyst: L upper side nose 06/01/2011 04/15/2014 Xerosis cutis 06/01/2011 04/14/2013 Eczema intertrigo 04/25/2011 04/15/2014 Eczematous dermatitis 04/25/2011 04/14/2013 Intertrigo: Irritant fold area dermatitis 201104/14/2013 Urgency of urination 02/13/2011 04/15/2014 Female stress incontinence 02/13/201104/15 Urge incontinence 02/13/2011 04/15/2014 Recurrent UTI 01/28/2011 04/15/2014 Pain in joint, pelvic region and thigh 0 04/15/2014 Family history of malignant neoplasm of ovary 04/14/2013 Solar Lentigines 05/18/2009 04/14/2013 Crowley Angioma//Capillary Angioma 05/18/2009 04/14/2013 Melanocytic nevus of face 05/18/20092013 Melanocytic nevus of trunk 05/18/200904/14 SVT (supraventricular tachycardia) 03/31/2009 04/09/2021 Last Assessment & Plan: She is on coumadin, metoprolol. SEBORRHEIC KERATOSIS: IRRITATED//INFLAMED 200712/12/2012 Viral warts, unspecified 02/08/2008 013 Benign neoplasm of skin of o ther and unspecified parts of face 02/08/2008 12/12/2012 SEBACEOUS HYPERPLASIA//SEBACEOUS GLAND DIS NOS 1 04/09/2007 12/12/2012 Sebaceous cyst 02/08/2008 12/12/2012 Symptomatic menopausal or female climacteric sta tracy 02/04/2008 04/14/2013 Personal history of malignant neoplasm of breast 02/04/2008 04/15/2014 Other specified disorder of bladder 02/04/2008 02/13/2011 Nocturia 02/04/2008 04/15/2014 Episode Elevated Glucose after Steriod 8 04/15/2014 Diarrhea 10/14/2007 04/14/2013 Abdominal pain, left lower quadrant 10/08/2007 04/14/2013 MALIGN NEOPL BREAST NOS 08/18/2007 04/15/19 15 Postmenopausal atrophic vaginitis 07/28/2007 04/15/2014 HX BREAST CANCER 07/01/2007 04/09/2021 Overview: summer, and 2007. On tamoxifen Last Assessment & Plan: Summer of 2015, and 2007. On tamoxifen Lump or mass in breast 06/24/2007 4 HX OF TUBULAR ADENOMA 04/27/2007 04/09/2021 NEURALGIA///NERV ROOT/PLEXUS DIS NEC 03/25/2007 04/15/2014 XEROSIS///SEBACEOUS GLAND DIS NEC 03/25/2007 02/17/2012 Seborrheic dermatitis, unspecified 03/25/2007 02/17/2012 Palpitations 01/21/2006 02/17/2012 DEGENERATED DISK DISEASE LUMBOSACRAL-NO MYELOPAT HY 01/21/2006 02/17/2012 ELEVATED SGPT 01/21/2006 02/17/2012 SEBORRHEIC KERATOSES 11/25/2005 02/17/2012 ACTINIC DAMAGE//CHR SOLAR SKIN DAMAGE NOS 200502/17/2012 SURGICAL SCAR & FIBROSIS OF SKIN 11/25/2005 02/17/2012 DERMATOFIBROMAS///BENIGN DARINEL SKIN LEG 11/25/2005 02/17/2012 INTRADERMAL NEVI (MELANOCYTIC)/// DARINEL SKIN TRUNK 11/25/2005 02/17/2012 SKIN TAG PAPILLOMAS///SKIN HYPERTRO/ATROPH NOS 0 11/25/2005 02/17/2012 Abdominal pain, unspecified site 10/25/2005 02/17/2012 Sprain of neck 07/05/2005 02/17/2012 FATTY INFILTRATION LIVER 05/14/2005 022 Other diseases of pharynx, not elsewhere classif ied(478.29) 04/14/2013 Unspecified hemorrhoids without mention of compl ication 04/14/2013 Overview: Hemorrhoids Lumbago 04/15/2014 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 Merino on recommendation of Dr. Angeline nath Last Assessment & Plan: She is on asacol for the past few months, it was started by Dr. Merino on recommendation of Dr. Angeline nath documented as of this encounter (statuses as of 07/16/2021) [facility]04-[facility]-2022 History of Past illness Narrative* Problem Noted Date Resolved Date Dysuria 07/06/2021 07/08/2021 Obesity, Class I, BMI 30-34.9 01/12/2021 GI bleed 01/12/2021 01/14/2021 Acute blood loss anemia 01/12/2021 01/15/20 21 LLQ pain 09/05/2017 04/09/2021 Overview: Added automatically from request for surgery [id number] 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, estrogen receptor positive 06/03/2017 07/06/2021 Personal history of breast cancer 12/18/2016 04/09/2021 Overview: Added automatically from request for surgery [id number] Permanent atrial fibrillation 12/26/2015 Diverticulitis of large inte angélica without perforation or abscess without bleeding 11/17/2015 04/09/2021 Lymphedema of arm 10/16/2015 04/09/2021 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 female breast 08/04/2015 04/09/2021 UTI (urinary tract infection) 07/27/2015 Overview: Estrogen is contraindicated for her breast cancer but she is not able to keep the UTI off. Tried to abx daily but developed a c diff. This plan is agreed upon by her onco and her urologist Last Assessment & Plan: Estrogen is contraindicated for her breast cancer but she is not able to keep the UTI off. Tried to abx daily but developed a c diff. This plan is agreed upon by her onco and her urologist Malignant neoplasm of right female breast 201504/09/2021 Overview: The patient had tamoxifen for 5 years and then a gap and resumed after getting cancer for the second time. Last Assessment & Plan: The patient had tamoxifen for 5 years and then a gap and resumed after getting cancer for the second time. Abnormal mammogram of right breast 07/17/2015 04/09/2021 Pain of both shoulder joints 02/21/2015 Other and unspecified noninf ectious gastroenteritis and colitis(558.9) 11/03/2014 11/03/2014 Other specified rheumatoid arthritis, multiple s ites 05/06/2014 07/01/2018 Overview: Dx: 2014 She is on methotrexate and plaquenil Last Assessment & Plan: Dx: 2014 She is on methotrexate and plaquenil Acne rosacea 11/07/2013 04/15/2014 Folliculitis 11/07/2013 04/15/2014 Inflamed seborrheic keratosis 11/07/2013 Xerosis cutis 11/07/2013 04/15/2014 Solar lentigo 11/07/2013 04/15/2014 Crowley angioma 11/07/2013 04/15/2014 Pruritus 11/07/2013 04/15/2014 Backache, unspecified 07/09/2013 04/15/2014 Cutaneous skin tags 12/12/2012 04/14/2013 Intradermal nevus 12/12/2012 04/14/2013 Melanocytic nevi of trunk 12/12/20122013 Dermatofibroma of lower leg 12/12/201203/18 Urinary tract infection 09/02/2012 04/15/19 15 Abdominal pain 09/02/2012 04/15/2014 C. difficile colitis 09/02/2012 04/15/2014 Diverticulitis of colon (wit hout mention of hemorrhage)(562.11) 06/15/2012 04/15/2014 Other Seborrheic Keratoses 05/29/201204/15 Actinic skin damage 05/29/2012 04/15/2014 Epidermal cyst: L upper side nose 06/01/2011 04/15/2014 Xerosis cutis 06/01/2011 04/14/2013 Eczema intertrigo 04/25/2011 04/15/2014 Eczematous dermatitis 04/25/2011 04/14/2013 Intertrigo: Irritant fold area dermatitis 201104/14/2013 Urgency of urination 02/13/2011 04/15/2014 Female stress incontinence 02/13/201104/15 Urge incontinence 02/13/2011 04/15/2014 Recurrent UTI 01/28/2011 04/15/2014 Pain in joint, pelvic region and thigh 0 04/15/2014 Family history of malignant neoplasm of ovary 04/14/2013 Solar Lentigines 05/18/2009 04/14/2013 Crowley Angioma//Capillary Angioma 05/18/2009 04/14/2013 Melanocytic nevus of face 05/18/20092013 Melanocytic nevus of trunk 05/18/200904/14 SVT (supraventricular tachycardia) 03/31/2009 04/09/2021 Last Assessment & Plan: She is on coumadin, metoprolol. SEBORRHEIC KERATOSIS: IRRITATED//INFLAMED 200712/12/2012 Viral warts, unspecified 02/08/2008 013 Benign neoplasm of skin of o ther and unspecified parts of face 02/08/2008 12/12/2012 SEBACEOUS HYPERPLASIA//SEBACEOUS GLAND DIS NOS 1 04/09/2007 12/12/2012 Sebaceous cyst 02/08/2008 12/12/2012 Symptomatic menopausal or female climacteric sta tracy 02/04/2008 04/14/2013 Personal history of malignant neoplasm of breast 02/04/2008 04/15/2014 Other specified disorder of bladder 02/04/2008 02/13/2011 Nocturia 02/04/2008 04/15/2014 Episode Elevated Glucose after Steriod 8 04/15/2014 Diarrhea 10/14/2007 04/14/2013 Abdominal pain, left lower quadrant 10/08/2007 04/14/2013 MALIGN NEOPL BREAST NOS 08/18/2007 04/15/19 15 Postmenopausal atrophic vaginitis 07/28/2007 04/15/2014 HX BREAST CANCER 07/01/2007 04/09/2021 Overview: summer, and 2007. On tamoxifen Last Assessment & Plan: Summer of 2015, and 2007. On tamoxifen Lump or mass in breast 06/24/2007 4 HX OF TUBULAR ADENOMA 04/27/2007 04/09/2021 NEURALGIA///NERV ROOT/PLEXUS DIS NEC 03/25/2007 04/15/2014 XEROSIS///SEBACEOUS GLAND DIS NEC 03/25/2007 02/17/2012 Seborrheic dermatitis, unspecified 03/25/2007 02/17/2012 Palpitations 01/21/2006 02/17/2012 DEGENERATED DISK DISEASE LUMBOSACRAL-NO MYELOPAT HY 01/21/2006 02/17/2012 ELEVATED SGPT 01/21/2006 02/17/2012 SEBORRHEIC KERATOSES 11/25/2005 02/17/2012 ACTINIC DAMAGE//CHR SOLAR SKIN DAMAGE NOS 200502/17/2012 SURGICAL SCAR & FIBROSIS OF SKIN 11/25/2005 02/17/2012 DERMATOFIBROMAS///BENIGN DARINEL SKIN LEG 11/25/2005 02/17/2012 INTRADERMAL NEVI (MELANOCYTIC)/// DARINEL SKIN TRUNK 11/25/2005 02/17/2012 SKIN TAG PAPILLOMAS///SKIN HYPERTRO/ATROPH NOS 0 11/25/2005 02/17/2012 Abdominal pain, unspecified site 10/25/2005 02/17/2012 Sprain of neck 07/05/2005 02/17/2012 FATTY INFILTRATION LIVER 05/14/2005 022 Other diseases of pharynx, not elsewhere classif ied(478.29) 04/14/2013 Unspecified hemorrhoids without mention of compl ication 04/14/2013 Overview: Hemorrhoids Lumbago 04/15/2014 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 Merino on recommendation of Dr. Angeline nath Last Assessment & Plan: She is on asacol for the past few months, it was started by Dr. Merino on recommendation of Dr. 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 Tried to abx daily but developed a c diff. This plan is agreed upon by her onco and her urologist Last Assessment & Plan: Estrogen is contraindicated for her breast cancer but she is not able to keep the UTI off. Tried to abx daily but developed a c diff. This plan is agreed upon by her onco and her urologist Malignant neoplasm of right female breast 201504/09/2021 Overview: The patient had tamoxifen for 5 years and then a gap and resumed after getting cancer for the second time. Last Assessment & Plan: The patient had tamoxifen for 5 years and then a gap and resumed after getting cancer for the second time. Abnormal mammogram of right breast 07/17/2015 04/09/2021 Pain of both shoulder joints 02/21/2015 Other and unspecified noninf ectious gastroenteritis and colitis(558.9) 11/03/2014 11/03/2014 Other specified rheumatoid arthritis, multiple s ites 05/06/2014 07/01/2018 Overview: Dx: 2014 She is on methotrexate and plaquenil Last Assessment & Plan: Dx: 2014 She is on methotrexate and plaquenil Acne rosacea 11/07/2013 04/15/2014 Folliculitis 11/07/2013 04/15/2014 Inflamed seborrheic keratosis 11/07/2013 Xerosis cutis 11/07/2013 04/15/2014 Solar lentigo 11/07/2013 04/15/2014 Crowley angioma 11/07/2013 04/15/2014 Pruritus 11/07/2013 04/15/2014 Backache, unspecified 07/09/2013 04/15/2014 Cutaneous skin tags 12/12/2012 04/14/2013 Intradermal nevus 12/12/2012 04/14/2013 Melanocytic nevi of trunk 12/12/20122013 Dermatofibroma of lower leg 12/12/201203/18 Urinary tract infection 09/02/2012 04/15/19 15 Abdominal pain 09/02/2012 04/15/2014 C. difficile colitis 09/02/2012 04/15/2014 Diverticulitis of colon (wit hout mention of hemorrhage)(562.11) 06/15/2012 04/15/2014 Other Seborrheic Keratoses 05/29/201204/15 Actinic skin damage 05/29/2012 04/15/2014 Epidermal cyst: L upper side nose 06/01/2011 04/15/2014 Xerosis cutis 06/01/2011 04/14/2013 Eczema intertrigo 04/25/2011 04/15/2014 Eczematous dermatitis 04/25/2011 04/14/2013 Intertrigo: Irritant fold area dermatitis 201104/14/2013 Urgency of urination 02/13/2011 04/15/2014 Female stress incontinence 02/13/201104/15 Urge incontinence 02/13/2011 04/15/2014 Recurrent UTI 01/28/2011 04/15/2014 Pain in joint, pelvic region and thigh 0 04/15/2014 Family history of malignant neoplasm of ovary 04/14/2013 Solar Lentigines 05/18/2009 04/14/2013 Crowley Angioma//Capillary Angioma 05/18/2009 04/14/2013 Melanocytic nevus of face 05/18/20092013 Melanocytic nevus of trunk 05/18/200904/14 SVT (supraventricular tachycardia) 03/31/2009 04/09/2021 Last Assessment & Plan: She is on coumadin, metoprolol. SEBORRHEIC KERATOSIS: IRRITATED//INFLAMED 200712/12/2012 Viral warts, unspecified 02/08/2008 013 Benign neoplasm of skin of o ther and unspecified parts of face 02/08/2008 12/12/2012 SEBACEOUS HYPERPLASIA//SEBACEOUS GLAND DIS NOS 1 04/09/2007 12/12/2012 Sebaceous cyst 02/08/2008 12/12/2012 Symptomatic menopausal or female climacteric sta tracy 02/04/2008 04/14/2013 Personal history of malignant neoplasm of breast 02/04/2008 04/15/2014 Other specified disorder of bladder 02/04/2008 02/13/2011 Nocturia 02/04/2008 04/15/2014 Episode Elevated Glucose after Steriod 8 04/15/2014 Diarrhea 10/14/2007 04/14/2013 Abdominal pain, left lower quadrant 10/08/2007 04/14/2013 MALIGN NEOPL BREAST NOS 08/18/2007 04/15/19 15 Postmenopausal atrophic vaginitis 07/28/2007 04/15/2014 HX BREAST CANCER 07/01/2007 04/09/2021 Overview: summer, and 2007. On tamoxifen Last Assessment & Plan: Summer of 2015, and 2007. On tamoxifen Lump or mass in breast 06/24/2007 4 HX OF TUBULAR ADENOMA 04/27/2007 04/09/2021 NEURALGIA///NERV ROOT/PLEXUS DIS NEC 03/25/2007 04/15/2014 XEROSIS///SEBACEOUS GLAND DIS NEC 03/25/2007 02/17/2012 Seborrheic dermatitis, unspecified 03/25/2007 02/17/2012 Palpitations 01/21/2006 02/17/2012 DEGENERATED DISK DISEASE LUMBOSACRAL-NO MYELOPAT HY 01/21/2006 02/17/2012 ELEVATED SGPT 01/21/2006 02/17/2012 SEBORRHEIC KERATOSES 11/25/2005 02/17/2012 ACTINIC DAMAGE//CHR SOLAR SKIN DAMAGE NOS 200502/17/2012 SURGICAL SCAR & FIBROSIS OF SKIN 11/25/2005 02/17/2012 DERMATOFIBROMAS///BENIGN DARINEL SKIN LEG 11/25/2005 02/17/2012 INTRADERMAL NEVI (MELANOCYTIC)/// DARINEL SKIN TRUNK 11/25/2005 02/17/2012 SKIN TAG PAPILLOMAS///SKIN HYPERTRO/ATROPH NOS 0 11/25/2005 02/17/2012 Abdominal pain, unspecified site 10/25/2005 02/17/2012 Sprain of neck 07/05/2005 02/17/2012 FATTY INFILTRATION LIVER 05/14/2005 022 Other diseases of pharynx, not elsewhere classif ied(478.29) 04/14/2013 Unspecified hemorrhoids without mention of compl ication 04/14/2013 Overview: Hemorrhoids Lumbago 04/15/2014 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 Merino on recommendation of Dr. Angeline nath Last Assessment & Plan: She is on asacol for the past few months, it was started by Dr. Merino on recommendation of Dr. 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 Tried to abx daily but developed a c diff. This plan is agreed upon by her onco and her urologist Last Assessment & Plan: Estrogen is contraindicated for her breast cancer but she is not able to keep the UTI off. Tried to abx daily but developed a c diff. This plan is agreed upon by her onco and her urologist Malignant neoplasm of right female breast 201504/09/2021 Overview: The patient had tamoxifen for 5 years and then a gap and resumed after getting cancer for the second time. Last Assessment & Plan: The patient had tamoxifen for 5 years and then a gap and resumed after getting cancer for the second time. Abnormal mammogram of right breast 07/17/2015 04/09/2021 Pain of both shoulder joints 02/21/2015 Other and unspecified noninf ectious gastroenteritis and colitis(558.9) 11/03/2014 11/03/2014 Other specified rheumatoid arthritis, multiple s ites 05/06/2014 07/01/2018 Overview: Dx: 2014 She is on methotrexate and plaquenil Last Assessment & Plan: Dx: 2014 She is on methotrexate and plaquenil Acne rosacea 11/07/2013 04/15/2014 Folliculitis 11/07/2013 04/15/2014 Inflamed seborrheic keratosis 11/07/2013 Xerosis cutis 11/07/2013 04/15/2014 Solar lentigo 11/07/2013 04/15/2014 Crowley angioma 11/07/2013 04/15/2014 Pruritus 11/07/2013 04/15/2014 Backache, unspecified 07/09/2013 04/15/2014 Cutaneous skin tags 12/12/2012 04/14/2013 Intradermal nevus 12/12/2012 04/14/2013 Melanocytic nevi of trunk 12/12/20122013 Dermatofibroma of lower leg 12/12/201203/18 Urinary tract infection 09/02/2012 04/15/19 15 Abdominal pain 09/02/2012 04/15/2014 C. difficile colitis 09/02/2012 04/15/2014 Diverticulitis of colon (wit hout mention of hemorrhage)(562.11) 06/15/2012 04/15/2014 Other Seborrheic Keratoses 05/29/201204/15 Actinic skin damage 05/29/2012 04/15/2014 Epidermal cyst: L upper side nose 06/01/2011 04/15/2014 Xerosis cutis 06/01/2011 04/14/2013 Eczema intertrigo 04/25/2011 04/15/2014 Eczematous dermatitis 04/25/2011 04/14/2013 Intertrigo: Irritant fold area dermatitis 201104/14/2013 Urgency of urination 02/13/2011 04/15/2014 Female stress incontinence 02/13/201104/15 Urge incontinence 02/13/2011 04/15/2014 Recurrent UTI 01/28/2011 04/15/2014 Pain in joint, pelvic region and thigh 0 04/15/2014 Family history of malignant neoplasm of ovary 04/14/2013 Solar Lentigines 05/18/2009 04/14/2013 Crowley Angioma//Capillary Angioma 05/18/2009 04/14/2013 Melanocytic nevus of face 05/18/20092013 Melanocytic nevus of trunk 05/18/200904/14 SVT (supraventricular tachycardia) 03/31/2009 04/09/2021 Last Assessment & Plan: She is on coumadin, metoprolol. SEBORRHEIC KERATOSIS: IRRITATED//INFLAMED 200712/12/2012 Viral warts, unspecified 02/08/2008 013 Benign neoplasm of skin of o ther and unspecified parts of face 02/08/2008 12/12/2012 SEBACEOUS HYPERPLASIA//SEBACEOUS GLAND DIS NOS 1 04/09/2007 12/12/2012 Sebaceous cyst 02/08/2008 12/12/2012 Symptomatic menopausal or female climacteric sta tracy 02/04/2008 04/14/2013 Personal history of malignant neoplasm of breast 02/04/2008 04/15/2014 Other specified disorder of bladder 02/04/2008 02/13/2011 Nocturia 02/04/2008 04/15/2014 Episode Elevated Glucose after Steriod 8 04/15/2014 Diarrhea 10/14/2007 04/14/2013 Abdominal pain, left lower quadrant 10/08/2007 04/14/2013 MALIGN NEOPL BREAST NOS 08/18/2007 04/15/19 15 Postmenopausal atrophic vaginitis 07/28/2007 04/15/2014 HX BREAST CANCER 07/01/2007 04/09/2021 Overview: summer, and 2007. On tamoxifen Last Assessment & Plan: Summer of 2015, and 2007. On tamoxifen Lump or mass in breast 06/24/2007 4 HX OF TUBULAR ADENOMA 04/27/2007 04/09/2021 NEURALGIA///NERV ROOT/PLEXUS DIS NEC 03/25/2007 04/15/2014 XEROSIS///SEBACEOUS GLAND DIS NEC 03/25/2007 02/17/2012 Seborrheic dermatitis, unspecified 03/25/2007 02/17/2012 Palpitations 01/21/2006 02/17/2012 DEGENERATED DISK DISEASE LUMBOSACRAL-NO MYELOPAT HY 01/21/2006 02/17/2012 ELEVATED SGPT 01/21/2006 02/17/2012 SEBORRHEIC KERATOSES 11/25/2005 02/17/2012 ACTINIC DAMAGE//CHR SOLAR SKIN DAMAGE NOS 200502/17/2012 SURGICAL SCAR & FIBROSIS OF SKIN 11/25/2005 02/17/2012 DERMATOFIBROMAS///BENIGN DARINEL SKIN LEG 11/25/2005 02/17/2012 INTRADERMAL NEVI (MELANOCYTIC)/// DARINEL SKIN TRUNK 11/25/2005 02/17/2012 SKIN TAG PAPILLOMAS///SKIN HYPERTRO/ATROPH NOS 0 11/25/2005 02/17/2012 Abdominal pain, unspecified site 10/25/2005 02/17/2012 Sprain of neck 07/05/2005 02/17/2012 FATTY INFILTRATION LIVER 05/14/2005 022 Other diseases of pharynx, not elsewhere classif ied(478.29) 04/14/2013 Unspecified hemorrhoids without mention of compl ication 04/14/2013 Overview: Hemorrhoids Lumbago 04/15/2014 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 Merino on recommendation of Dr. Angeline nath Last Assessment & Plan: She is on asacol for the past few months, it was started by Dr. Merino on recommendation of Dr. 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 Tried to abx daily but developed a c diff. This plan is agreed upon by her onco and her urologist Last Assessment & Plan: Estrogen is contraindicated for her breast cancer but she is not able to keep the UTI off. Tried to abx daily but developed a c diff. This plan is agreed upon by her onco and her urologist Malignant neoplasm of right female breast 201504/09/2021 Overview: The patient had tamoxifen for 5 years and then a gap and resumed after getting cancer for the second time. Last Assessment & Plan: The patient had tamoxifen for 5 years and then a gap and resumed after getting cancer for the second time. Abnormal mammogram of right breast 07/17/2015 04/09/2021 Pain of both shoulder joints 02/21/2015 Other and unspecified noninf ectious gastroenteritis and colitis(558.9) 11/03/2014 11/03/2014 Other specified rheumatoid arthritis, multiple s ites 05/06/2014 07/01/2018 Overview: Dx: 2014 She is on methotrexate and plaquenil Last Assessment & Plan: Dx: 2014 She is on methotrexate and plaquenil Acne rosacea 11/07/2013 04/15/2014 Folliculitis 11/07/2013 04/15/2014 Inflamed seborrheic keratosis 11/07/2013 Xerosis cutis 11/07/2013 04/15/2014 Solar lentigo 11/07/2013 04/15/2014 Crowley angioma 11/07/2013 04/15/2014 Pruritus 11/07/2013 04/15/2014 Backache, unspecified 07/09/2013 04/15/2014 Cutaneous skin tags 12/12/2012 04/14/2013 Intradermal nevus 12/12/2012 04/14/2013 Melanocytic nevi of trunk 12/12/20122013 Dermatofibroma of lower leg 12/12/201203/18 Urinary tract infection 09/02/2012 04/15/19 15 Abdominal pain 09/02/2012 04/15/2014 C. difficile colitis 09/02/2012 04/15/2014 Diverticulitis of colon (wit hout mention of hemorrhage)(562.11) 06/15/2012 04/15/2014 Other Seborrheic Keratoses 05/29/201204/15 Actinic skin damage 05/29/2012 04/15/2014 Epidermal cyst: L upper side nose 06/01/2011 04/15/2014 Xerosis cutis 06/01/2011 04/14/2013 Eczema intertrigo 04/25/2011 04/15/2014 Eczematous dermatitis 04/25/2011 04/14/2013 Intertrigo: Irritant fold area dermatitis 201104/14/2013 Urgency of urination 02/13/2011 04/15/2014 Female stress incontinence 02/13/201104/15 Urge incontinence 02/13/2011 04/15/2014 Recurrent UTI 01/28/2011 04/15/2014 Pain in joint, pelvic region and thigh 0 04/15/2014 Family history of malignant neoplasm of ovary 04/14/2013 Solar Lentigines 05/18/2009 04/14/2013 Crowley Angioma//Capillary Angioma 05/18/2009 04/14/2013 Melanocytic nevus of face 05/18/20092013 Melanocytic nevus of trunk 05/18/200904/14 SVT (supraventricular tachycardia) 03/31/2009 04/09/2021 Last Assessment & Plan: She is on coumadin, metoprolol. SEBORRHEIC KERATOSIS: IRRITATED//INFLAMED 200712/12/2012 Viral warts, unspecified 02/08/2008 013 Benign neoplasm of skin of o ther and unspecified parts of face 02/08/2008 12/12/2012 SEBACEOUS HYPERPLASIA//SEBACEOUS GLAND DIS NOS 1 04/09/2007 12/12/2012 Sebaceous cyst 02/08/2008 12/12/2012 Symptomatic menopausal or female climacteric sta tracy 02/04/2008 04/14/2013 Personal history of malignant neoplasm of breast 02/04/2008 04/15/2014 Other specified disorder of bladder 02/04/2008 02/13/2011 Nocturia 02/04/2008 04/15/2014 Episode Elevated Glucose after Steriod 8 04/15/2014 Diarrhea 10/14/2007 04/14/2013 Abdominal pain, left lower quadrant 10/08/2007 04/14/2013 MALIGN NEOPL BREAST NOS 08/18/2007 04/15/19 15 Postmenopausal atrophic vaginitis 07/28/2007 04/15/2014 HX BREAST CANCER 07/01/2007 04/09/2021 Overview: summer, and 2007. On tamoxifen Last Assessment & Plan: Summer of 2015, and 2007. On tamoxifen Lump or mass in breast 06/24/2007 4 HX OF TUBULAR ADENOMA 04/27/2007 04/09/2021 NEURALGIA///NERV ROOT/PLEXUS DIS NEC 03/25/2007 04/15/2014 XEROSIS///SEBACEOUS GLAND DIS NEC 03/25/2007 02/17/2012 Seborrheic dermatitis, unspecified 03/25/2007 02/17/2012 Palpitations 01/21/2006 02/17/2012 DEGENERATED DISK DISEASE LUMBOSACRAL-NO MYELOPAT HY 01/21/2006 02/17/2012 ELEVATED SGPT 01/21/2006 02/17/2012 SEBORRHEIC KERATOSES 11/25/2005 02/17/2012 ACTINIC DAMAGE//CHR SOLAR SKIN DAMAGE NOS 200502/17/2012 SURGICAL SCAR & FIBROSIS OF SKIN 11/25/2005 02/17/2012 DERMATOFIBROMAS///BENIGN DARINEL SKIN LEG 11/25/2005 02/17/2012 INTRADERMAL NEVI (MELANOCYTIC)/// DARINEL SKIN TRUNK 11/25/2005 02/17/2012 SKIN TAG PAPILLOMAS///SKIN HYPERTRO/ATROPH NOS 0 11/25/2005 02/17/2012 Abdominal pain, unspecified site 10/25/2005 02/17/2012 Sprain of neck 07/05/2005 02/17/2012 FATTY INFILTRATION LIVER 05/14/2005 022 Other diseases of pharynx, not elsewhere classif ied(478.29) 04/14/2013 Unspecified hemorrhoids without mention of compl ication 04/14/2013 Overview: Hemorrhoids Lumbago 04/15/2014 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 Merino on recommendation of Dr. Angeline nath Last Assessment & Plan: She is on asacol for the past few months, it was started by Dr. Merino on recommendation of Dr. 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 Tried to abx daily but developed a c diff. This plan is agreed upon by her onco and her urologist Last Assessment & Plan: Estrogen is contraindicated for her breast cancer but she is not able to keep the UTI off. Tried to abx daily but developed a c diff. This plan is agreed upon by her onco and her urologist Malignant neoplasm of right female breast 201504/09/2021 Overview: The patient had tamoxifen for 5 years and then a gap and resumed after getting cancer for the second time. Last Assessment & Plan: The patient had tamoxifen for 5 years and then a gap and resumed after getting cancer for the second time. Abnormal mammogram of right breast 07/17/2015 04/09/2021 Pain of both shoulder joints 02/21/2015 Other and unspecified noninf ectious gastroenteritis and colitis(558.9) 11/03/2014 11/03/2014 Other specified rheumatoid arthritis, multiple s ites 05/06/2014 07/01/2018 Overview: Dx: 2014 She is on methotrexate and plaquenil Last Assessment & Plan: Dx: 2014 She is on methotrexate and plaquenil Acne rosacea 11/07/2013 04/15/2014 Folliculitis 11/07/2013 04/15/2014 Inflamed seborrheic keratosis 11/07/2013 Xerosis cutis 11/07/2013 04/15/2014 Solar lentigo 11/07/2013 04/15/2014 Crowley angioma 11/07/2013 04/15/2014 Pruritus 11/07/2013 04/15/2014 Backache, unspecified 07/09/2013 04/15/2014 Cutaneous skin tags 12/12/2012 04/14/2013 Intradermal nevus 12/12/2012 04/14/2013 Melanocytic nevi of trunk 12/12/20122013 Dermatofibroma of lower leg 12/12/201203/18 Urinary tract infection 09/02/2012 04/15/19 15 Abdominal pain 09/02/2012 04/15/2014 C. difficile colitis 09/02/2012 04/15/2014 Diverticulitis of colon (wit hout mention of hemorrhage)(562.11) 06/15/2012 04/15/2014 Other Seborrheic Keratoses 05/29/201204/15 Actinic skin damage 05/29/2012 04/15/2014 Epidermal cyst: L upper side nose 06/01/2011 04/15/2014 Xerosis cutis 06/01/2011 04/14/2013 Eczema intertrigo 04/25/2011 04/15/2014 Eczematous dermatitis 04/25/2011 04/14/2013 Intertrigo: Irritant fold area dermatitis 201104/14/2013 Urgency of urination 02/13/2011 04/15/2014 Female stress incontinence 02/13/201104/15 Urge incontinence 02/13/2011 04/15/2014 Recurrent UTI 01/28/2011 04/15/2014 Pain in joint, pelvic region and thigh 0 04/15/2014 Family history of malignant neoplasm of ovary 04/14/2013 Solar Lentigines 05/18/2009 04/14/2013 Crowley Angioma//Capillary Angioma 05/18/2009 04/14/2013 Melanocytic nevus of face 05/18/20092013 Melanocytic nevus of trunk 05/18/200904/14 SVT (supraventricular tachycardia) 03/31/2009 04/09/2021 Last Assessment & Plan: She is on coumadin, metoprolol. SEBORRHEIC KERATOSIS: IRRITATED//INFLAMED 200712/12/2012 Viral warts, unspecified 02/08/2008 013 Benign neoplasm of skin of o ther and unspecified parts of face 02/08/2008 12/12/2012 SEBACEOUS HYPERPLASIA//SEBACEOUS GLAND DIS NOS 1 04/09/2007 12/12/2012 Sebaceous cyst 02/08/2008 12/12/2012 Symptomatic menopausal or female climacteric sta tracy 02/04/2008 04/14/2013 Personal history of malignant neoplasm of breast 02/04/2008 04/15/2014 Other specified disorder of bladder 02/04/2008 02/13/2011 Nocturia 02/04/2008 04/15/2014 Episode Elevated Glucose after Steriod 8 04/15/2014 Diarrhea 10/14/2007 04/14/2013 Abdominal pain, left lower quadrant 10/08/2007 04/14/2013 MALIGN NEOPL BREAST NOS 08/18/2007 04/15/19 15 Postmenopausal atrophic vaginitis 07/28/2007 04/15/2014 HX BREAST CANCER 07/01/2007 04/09/2021 Overview: summer, and 2007. On tamoxifen Last Assessment & Plan: Summer of 2015, and 2007. On tamoxifen Lump or mass in breast 06/24/2007 4 HX OF TUBULAR ADENOMA 04/27/2007 04/09/2021 NEURALGIA///NERV ROOT/PLEXUS DIS NEC 03/25/2007 04/15/2014 XEROSIS///SEBACEOUS GLAND DIS NEC 03/25/2007 02/17/2012 Seborrheic dermatitis, unspecified 03/25/2007 02/17/2012 Palpitations 01/21/2006 02/17/2012 DEGENERATED DISK DISEASE LUMBOSACRAL-NO MYELOPAT HY 01/21/2006 02/17/2012 ELEVATED SGPT 01/21/2006 02/17/2012 SEBORRHEIC KERATOSES 11/25/2005 02/17/2012 ACTINIC DAMAGE//CHR SOLAR SKIN DAMAGE NOS 200502/17/2012 SURGICAL SCAR & FIBROSIS OF SKIN 11/25/2005 02/17/2012 DERMATOFIBROMAS///BENIGN DARINEL SKIN LEG 11/25/2005 02/17/2012 INTRADERMAL NEVI (MELANOCYTIC)/// DARINEL SKIN TRUNK 11/25/2005 02/17/2012 SKIN TAG PAPILLOMAS///SKIN HYPERTRO/ATROPH NOS 0 11/25/2005 02/17/2012 Abdominal pain, unspecified site 10/25/2005 02/17/2012 Sprain of neck 07/05/2005 02/17/2012 FATTY INFILTRATION LIVER 05/14/2005 022 Other diseases of pharynx, not elsewhere classif ied(478.29) 04/14/2013 Unspecified hemorrhoids without mention of compl ication 04/14/2013 Overview: Hemorrhoids Lumbago 04/15/2014 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 Merino on recommendation of Dr. Angeline nath Last Assessment & Plan: She is on asacol for the past few months, it was started by Dr. Merino on recommendation of Dr. 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 Tried to abx daily but developed a c diff. This plan is agreed upon by her onco and her urologist Last Assessment & Plan: Estrogen is contraindicated for her breast cancer but she is not able to keep the UTI off. Tried to abx daily but developed a c diff. This plan is agreed upon by her onco and her urologist Malignant neoplasm of right female breast 201504/09/2021 Overview: The patient had tamoxifen for 5 years and then a gap and resumed after getting cancer for the second time. Last Assessment & Plan: The patient had tamoxifen for 5 years and then a gap and resumed after getting cancer for the second time. Abnormal mammogram of right breast 07/17/2015 04/09/2021 Pain of both shoulder joints 02/21/2015 Other and unspecified noninf ectious gastroenteritis and colitis(558.9) 11/03/2014 11/03/2014 Other specified rheumatoid arthritis, multiple s ites 05/06/2014 07/01/2018 Overview: Dx: 2014 She is on methotrexate and plaquenil Last Assessment & Plan: Dx: 2014 She is on methotrexate and plaquenil Acne rosacea 11/07/2013 04/15/2014 Folliculitis 11/07/2013 04/15/2014 Inflamed seborrheic keratosis 11/07/2013 Xerosis cutis 11/07/2013 04/15/2014 Solar lentigo 11/07/2013 04/15/2014 Crowley angioma 11/07/2013 04/15/2014 Pruritus 11/07/2013 04/15/2014 Backache, unspecified 07/09/2013 04/15/2014 Cutaneous skin tags 12/12/2012 04/14/2013 Intradermal nevus 12/12/2012 04/14/2013 Melanocytic nevi of trunk 12/12/20122013 Dermatofibroma of lower leg 12/12/201203/18 Urinary tract infection 09/02/2012 04/15/19 15 Abdominal pain 09/02/2012 04/15/2014 C. difficile colitis 09/02/2012 04/15/2014 Diverticulitis of colon (wit hout mention of hemorrhage)(562.11) 06/15/2012 04/15/2014 Other Seborrheic Keratoses 05/29/201204/15 Actinic skin damage 05/29/2012 04/15/2014 Epidermal cyst: L upper side nose 06/01/2011 04/15/2014 Xerosis cutis 06/01/2011 04/14/2013 Eczema intertrigo 04/25/2011 04/15/2014 Eczematous dermatitis 04/25/2011 04/14/2013 Intertrigo: Irritant fold area dermatitis 201104/14/2013 Urgency of urination 02/13/2011 04/15/2014 Female stress incontinence 02/13/201104/15 Urge incontinence 02/13/2011 04/15/2014 Recurrent UTI 01/28/2011 04/15/2014 Pain in joint, pelvic region and thigh 0 04/15/2014 Family history of malignant neoplasm of ovary 04/14/2013 Solar Lentigines 05/18/2009 04/14/2013 Crowley Angioma//Capillary Angioma 05/18/2009 04/14/2013 Melanocytic nevus of face 05/18/20092013 Melanocytic nevus of trunk 05/18/200904/14 SVT (supraventricular tachycardia) 03/31/2009 04/09/2021 Last Assessment & Plan: She is on coumadin, metoprolol. SEBORRHEIC KERATOSIS: IRRITATED//INFLAMED 200712/12/2012 Viral warts, unspecified 02/08/2008 013 Benign neoplasm of skin of o ther and unspecified parts of face 02/08/2008 12/12/2012 SEBACEOUS HYPERPLASIA//SEBACEOUS GLAND DIS NOS 1 04/09/2007 12/12/2012 Sebaceous cyst 02/08/2008 12/12/2012 Symptomatic menopausal or female climacteric sta tracy 02/04/2008 04/14/2013 Personal history of malignant neoplasm of breast 02/04/2008 04/15/2014 Other specified disorder of bladder 02/04/2008 02/13/2011 Nocturia 02/04/2008 04/15/2014 Episode Elevated Glucose after Steriod 8 04/15/2014 Diarrhea 10/14/2007 04/14/2013 Abdominal pain, left lower quadrant 10/08/2007 04/14/2013 MALIGN NEOPL BREAST NOS 08/18/2007 04/15/19 15 Postmenopausal atrophic vaginitis 07/28/2007 04/15/2014 HX BREAST CANCER 07/01/2007 04/09/2021 Overview: summer, and 2007. On tamoxifen Last Assessment & Plan: Summer of 2015, and 2007. On tamoxifen Lump or mass in breast 06/24/2007 4 HX OF TUBULAR ADENOMA 04/27/2007 04/09/2021 NEURALGIA///NERV ROOT/PLEXUS DIS NEC 03/25/2007 04/15/2014 XEROSIS///SEBACEOUS GLAND DIS NEC 03/25/2007 02/17/2012 Seborrheic dermatitis, unspecified 03/25/2007 02/17/2012 Palpitations 01/21/2006 02/17/2012 DEGENERATED DISK DISEASE LUMBOSACRAL-NO MYELOPAT HY 01/21/2006 02/17/2012 ELEVATED SGPT 01/21/2006 02/17/2012 SEBORRHEIC KERATOSES 11/25/2005 02/17/2012 ACTINIC DAMAGE//CHR SOLAR SKIN DAMAGE NOS 200502/17/2012 SURGICAL SCAR & FIBROSIS OF SKIN 11/25/2005 02/17/2012 DERMATOFIBROMAS///BENIGN DARINEL SKIN LEG 11/25/2005 02/17/2012 INTRADERMAL NEVI (MELANOCYTIC)/// DARINEL SKIN TRUNK 11/25/2005 02/17/2012 SKIN TAG PAPILLOMAS///SKIN HYPERTRO/ATROPH NOS 0 11/25/2005 02/17/2012 Abdominal pain, unspecified site 10/25/2005 02/17/2012 Sprain of neck 07/05/2005 02/17/2012 FATTY INFILTRATION LIVER 05/14/2005 022 Other diseases of pharynx, not elsewhere classif ied(478.29) 04/14/2013 Unspecified hemorrhoids without mention of compl ication 04/14/2013 Overview: Hemorrhoids Lumbago 04/15/2014 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 Merino on recommendation of Dr. Angeline nath Last Assessment & Plan: She is on asacol for the past few months, it was started by Dr. Merino on recommendation of Dr. 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 Tried to abx daily but developed a c diff. This plan is agreed upon by her onco and her urologist Last Assessment & Plan: Estrogen is contraindicated for her breast cancer but she is not able to keep the UTI off. Tried to abx daily but developed a c diff. This plan is agreed upon by her onco and her urologist Malignant neoplasm of right female breast 201504/09/2021 Overview: The patient had tamoxifen for 5 years and then a gap and resumed after getting cancer for the second time. Last Assessment & Plan: The patient had tamoxifen for 5 years and then a gap and resumed after getting cancer for the second time. Abnormal mammogram of right breast 07/17/2015 04/09/2021 Pain of both shoulder joints 02/21/2015 Other and unspecified noninf ectious gastroenteritis and colitis(558.9) 11/03/2014 11/03/2014 Other specified rheumatoid arthritis, multiple s ites 05/06/2014 07/01/2018 Overview: Dx: 2014 She is on methotrexate and plaquenil Last Assessment & Plan: Dx: 2014 She is on methotrexate and plaquenil Acne rosacea 11/07/2013 04/15/2014 Folliculitis 11/07/2013 04/15/2014 Inflamed seborrheic keratosis 11/07/2013 Xerosis cutis 11/07/2013 04/15/2014 Solar lentigo 11/07/2013 04/15/2014 Crowley angioma 11/07/2013 04/15/2014 Pruritus 11/07/2013 04/15/2014 Backache, unspecified 07/09/2013 04/15/2014 Cutaneous skin tags 12/12/2012 04/14/2013 Intradermal nevus 12/12/2012 04/14/2013 Melanocytic nevi of trunk 12/12/20122013 Dermatofibroma of lower leg 12/12/201203/18 Urinary tract infection 09/02/2012 04/15/19 15 Abdominal pain 09/02/2012 04/15/2014 C. difficile colitis 09/02/2012 04/15/2014 Diverticulitis of colon (wit hout mention of hemorrhage)(562.11) 06/15/2012 04/15/2014 Other Seborrheic Keratoses 05/29/201204/15 Actinic skin damage 05/29/2012 04/15/2014 Epidermal cyst: L upper side nose 06/01/2011 04/15/2014 Xerosis cutis 06/01/2011 04/14/2013 Eczema intertrigo 04/25/2011 04/15/2014 Eczematous dermatitis 04/25/2011 04/14/2013 Intertrigo: Irritant fold area dermatitis 201104/14/2013 Urgency of urination 02/13/2011 04/15/2014 Female stress incontinence 02/13/201104/15 Urge incontinence 02/13/2011 04/15/2014 Recurrent UTI 01/28/2011 04/15/2014 Pain in joint, pelvic region and thigh 0 04/15/2014 Family history of malignant neoplasm of ovary 04/14/2013 Solar Lentigines 05/18/2009 04/14/2013 Crowley Angioma//Capillary Angioma 05/18/2009 04/14/2013 Melanocytic nevus of face 05/18/20092013 Melanocytic nevus of trunk 05/18/200904/14 SVT (supraventricular tachycardia) 03/31/2009 04/09/2021 Last Assessment & Plan: She is on coumadin, metoprolol. SEBORRHEIC KERATOSIS: IRRITATED//INFLAMED 200712/12/2012 Viral warts, unspecified 02/08/2008 013 Benign neoplasm of skin of o ther and unspecified parts of face 02/08/2008 12/12/2012 SEBACEOUS HYPERPLASIA//SEBACEOUS GLAND DIS NOS 1 04/09/2007 12/12/2012 Sebaceous cyst 02/08/2008 12/12/2012 Symptomatic menopausal or female climacteric sta tracy 02/04/2008 04/14/2013 Personal history of malignant neoplasm of breast 02/04/2008 04/15/2014 Other specified disorder of bladder 02/04/2008 02/13/2011 Nocturia 02/04/2008 04/15/2014 Episode Elevated Glucose after Steriod 8 04/15/2014 Diarrhea 10/14/2007 04/14/2013 Abdominal pain, left lower quadrant 10/08/2007 04/14/2013 MALIGN NEOPL BREAST NOS 08/18/2007 04/15/19 15 Postmenopausal atrophic vaginitis 07/28/2007 04/15/2014 HX BREAST CANCER 07/01/2007 04/09/2021 Overview: summer, and 2007. On tamoxifen Last Assessment & Plan: Summer of 2015, and 2007. On tamoxifen Lump or mass in breast 06/24/2007 4 HX OF TUBULAR ADENOMA 04/27/2007 04/09/2021 NEURALGIA///NERV ROOT/PLEXUS DIS NEC 03/25/2007 04/15/2014 XEROSIS///SEBACEOUS GLAND DIS NEC 03/25/2007 02/17/2012 Seborrheic dermatitis, unspecified 03/25/2007 02/17/2012 Palpitations 01/21/2006 02/17/2012 DEGENERATED DISK DISEASE LUMBOSACRAL-NO MYELOPAT HY 01/21/2006 02/17/2012 ELEVATED SGPT 01/21/2006 02/17/2012 SEBORRHEIC KERATOSES 11/25/2005 02/17/2012 ACTINIC DAMAGE//CHR SOLAR SKIN DAMAGE NOS 200502/17/2012 SURGICAL SCAR & FIBROSIS OF SKIN 11/25/2005 02/17/2012 DERMATOFIBROMAS///BENIGN DARINEL SKIN LEG 11/25/2005 02/17/2012 INTRADERMAL NEVI (MELANOCYTIC)/// DARINEL SKIN TRUNK 11/25/2005 02/17/2012 SKIN TAG PAPILLOMAS///SKIN HYPERTRO/ATROPH NOS 0 11/25/2005 02/17/2012 Abdominal pain, unspecified site 10/25/2005 02/17/2012 Sprain of neck 07/05/2005 02/17/2012 FATTY INFILTRATION LIVER 05/14/2005 022 Other diseases of pharynx, not elsewhere classif ied(478.29) 04/14/2013 Unspecified hemorrhoids without mention of compl ication 04/14/2013 Overview: Hemorrhoids Lumbago 04/15/2014 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 Merino on recommendation of Dr. Angeline nath Last Assessment & Plan: She is on asacol for the past few months, it was started by Dr. Merino on recommendation of Dr. 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 Tried to abx daily but developed a c diff. This plan is agreed upon by her onco and her urologist Last Assessment & Plan: Estrogen is contraindicated for her breast cancer but she is not able to keep the UTI off. Tried to abx daily but developed a c diff. This plan is agreed upon by her onco and her urologist Malignant neoplasm of right female breast 201504/09/2021 Overview: The patient had tamoxifen for 5 years and then a gap and resumed after getting cancer for the second time. Last Assessment & Plan: The patient had tamoxifen for 5 years and then a gap and resumed after getting cancer for the second time. Abnormal mammogram of right breast 07/17/2015 04/09/2021 Pain of both shoulder joints 02/21/2015 Other and unspecified noninf ectious gastroenteritis and colitis(558.9) 11/03/2014 11/03/2014 Other specified rheumatoid arthritis, multiple s ites 05/06/2014 07/01/2018 Overview: Dx: 2014 She is on methotrexate and plaquenil Last Assessment & Plan: Dx: 2014 She is on methotrexate and plaquenil Acne rosacea 11/07/2013 04/15/2014 Folliculitis 11/07/2013 04/15/2014 Inflamed seborrheic keratosis 11/07/2013 Xerosis cutis 11/07/2013 04/15/2014 Solar lentigo 11/07/2013 04/15/2014 Crowley angioma 11/07/2013 04/15/2014 Pruritus 11/07/2013 04/15/2014 Backache, unspecified 07/09/2013 04/15/2014 Cutaneous skin tags 12/12/2012 04/14/2013 Intradermal nevus 12/12/2012 04/14/2013 Melanocytic nevi of trunk 12/12/20122013 Dermatofibroma of lower leg 12/12/201203/18 Urinary tract infection 09/02/2012 04/15/19 15 Abdominal pain 09/02/2012 04/15/2014 C. difficile colitis 09/02/2012 04/15/2014 Diverticulitis of colon (wit hout mention of hemorrhage)(562.11) 06/15/2012 04/15/2014 Other Seborrheic Keratoses 05/29/201204/15 Actinic skin damage 05/29/2012 04/15/2014 Epidermal cyst: L upper side nose 06/01/2011 04/15/2014 Xerosis cutis 06/01/2011 04/14/2013 Eczema intertrigo 04/25/2011 04/15/2014 Eczematous dermatitis 04/25/2011 04/14/2013 Intertrigo: Irritant fold area dermatitis 201104/14/2013 Urgency of urination 02/13/2011 04/15/2014 Female stress incontinence 02/13/201104/15 Urge incontinence 02/13/2011 04/15/2014 Recurrent UTI 01/28/2011 04/15/2014 Pain in joint, pelvic region and thigh 0 04/15/2014 Family history of malignant neoplasm of ovary 04/14/2013 Solar Lentigines 05/18/2009 04/14/2013 Crowley Angioma//Capillary Angioma 05/18/2009 04/14/2013 Melanocytic nevus of face 05/18/20092013 Melanocytic nevus of trunk 05/18/200904/14 SVT (supraventricular tachycardia) 03/31/2009 04/09/2021 Last Assessment & Plan: She is on coumadin, metoprolol. SEBORRHEIC KERATOSIS: IRRITATED//INFLAMED 200712/12/2012 Viral warts, unspecified 02/08/2008 013 Benign neoplasm of skin of o ther and unspecified parts of face 02/08/2008 12/12/2012 SEBACEOUS HYPERPLASIA//SEBACEOUS GLAND DIS NOS 1 04/09/2007 12/12/2012 Sebaceous cyst 02/08/2008 12/12/2012 Symptomatic menopausal or female climacteric sta tracy 02/04/2008 04/14/2013 Personal history of malignant neoplasm of breast 02/04/2008 04/15/2014 Other specified disorder of bladder 02/04/2008 02/13/2011 Nocturia 02/04/2008 04/15/2014 Episode Elevated Glucose after Steriod 8 04/15/2014 Diarrhea 10/14/2007 04/14/2013 Abdominal pain, left lower quadrant 10/08/2007 04/14/2013 MALIGN NEOPL BREAST NOS 08/18/2007 04/15/19 15 Postmenopausal atrophic vaginitis 07/28/2007 04/15/2014 HX BREAST CANCER 07/01/2007 04/09/2021 Overview: summer, and 2007. On tamoxifen Last Assessment & Plan: Summer of 2015, and 2007. On tamoxifen Lump or mass in breast 06/24/2007 4 HX OF TUBULAR ADENOMA 04/27/2007 04/09/2021 NEURALGIA///NERV ROOT/PLEXUS DIS NEC 03/25/2007 04/15/2014 XEROSIS///SEBACEOUS GLAND DIS NEC 03/25/2007 02/17/2012 Seborrheic dermatitis, unspecified 03/25/2007 02/17/2012 Palpitations 01/21/2006 02/17/2012 DEGENERATED DISK DISEASE LUMBOSACRAL-NO MYELOPAT HY 01/21/2006 02/17/2012 ELEVATED SGPT 01/21/2006 02/17/2012 SEBORRHEIC KERATOSES 11/25/2005 02/17/2012 ACTINIC DAMAGE//CHR SOLAR SKIN DAMAGE NOS 200502/17/2012 SURGICAL SCAR & FIBROSIS OF SKIN 11/25/2005 02/17/2012 DERMATOFIBROMAS///BENIGN DARINEL SKIN LEG 11/25/2005 02/17/2012 INTRADERMAL NEVI (MELANOCYTIC)/// DARINEL SKIN TRUNK 11/25/2005 02/17/2012 SKIN TAG PAPILLOMAS///SKIN HYPERTRO/ATROPH NOS 0 11/25/2005 02/17/2012 Abdominal pain, unspecified site 10/25/2005 02/17/2012 Sprain of neck 07/05/2005 02/17/2012 FATTY INFILTRATION LIVER 05/14/2005 022 Other diseases of pharynx, not elsewhere classif ied(478.29) 04/14/2013 Unspecified hemorrhoids without mention of compl ication 04/14/2013 Overview: Hemorrhoids Lumbago 04/15/2014 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 Merino on recommendation of Dr. Angeline nath Last Assessment & Plan: She is on asacol for the past few months, it was started by Dr. Merino on recommendation of Dr. 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 Tried to abx daily but developed a c diff. This plan is agreed upon by her onco and her urologist Last Assessment & Plan: Estrogen is contraindicated for her breast cancer but she is not able to keep the UTI off. Tried to abx daily but developed a c diff. This plan is agreed upon by her onco and her urologist Malignant neoplasm of right female breast 201504/09/2021 Overview: The patient had tamoxifen for 5 years and then a gap and resumed after getting cancer for the second time. Last Assessment & Plan: The patient had tamoxifen for 5 years and then a gap and resumed after getting cancer for the second time. Abnormal mammogram of right breast 07/17/2015 04/09/2021 Pain of both shoulder joints 02/21/2015 Other and unspecified noninf ectious gastroenteritis and colitis(558.9) 11/03/2014 11/03/2014 Other specified rheumatoid arthritis, multiple s ites 05/06/2014 07/01/2018 Overview: Dx: 2014 She is on methotrexate and plaquenil Last Assessment & Plan: Dx: 2014 She is on methotrexate and plaquenil Acne rosacea 11/07/2013 04/15/2014 Folliculitis 11/07/2013 04/15/2014 Inflamed seborrheic keratosis 11/07/2013 Xerosis cutis 11/07/2013 04/15/2014 Solar lentigo 11/07/2013 04/15/2014 Crowley angioma 11/07/2013 04/15/2014 Pruritus 11/07/2013 04/15/2014 Backache, unspecified 07/09/2013 04/15/2014 Cutaneous skin tags 12/12/2012 04/14/2013 Intradermal nevus 12/12/2012 04/14/2013 Melanocytic nevi of trunk 12/12/20122013 Dermatofibroma of lower leg 12/12/201203/18 Urinary tract infection 09/02/2012 04/15/19 15 Abdominal pain 09/02/2012 04/15/2014 C. difficile colitis 09/02/2012 04/15/2014 Diverticulitis of colon (wit hout mention of hemorrhage)(562.11) 06/15/2012 04/15/2014 Other Seborrheic Keratoses 05/29/201204/15 Actinic skin damage 05/29/2012 04/15/2014 Epidermal cyst: L upper side nose 06/01/2011 04/15/2014 Xerosis cutis 06/01/2011 04/14/2013 Eczema intertrigo 04/25/2011 04/15/2014 Eczematous dermatitis 04/25/2011 04/14/2013 Intertrigo: Irritant fold area dermatitis 201104/14/2013 Urgency of urination 02/13/2011 04/15/2014 Female stress incontinence 02/13/201104/15 Urge incontinence 02/13/2011 04/15/2014 Recurrent UTI 01/28/2011 04/15/2014 Pain in joint, pelvic region and thigh 0 04/15/2014 Family history of malignant neoplasm of ovary 04/14/2013 Solar Lentigines 05/18/2009 04/14/2013 Crowley Angioma//Capillary Angioma 05/18/2009 04/14/2013 Melanocytic nevus of face 05/18/20092013 Melanocytic nevus of trunk 05/18/200904/14 SVT (supraventricular tachycardia) 03/31/2009 04/09/2021 Last Assessment & Plan: She is on coumadin, metoprolol. SEBORRHEIC KERATOSIS: IRRITATED//INFLAMED 200712/12/2012 Viral warts, unspecified 02/08/2008 013 Benign neoplasm of skin of o ther and unspecified parts of face 02/08/2008 12/12/2012 SEBACEOUS HYPERPLASIA//SEBACEOUS GLAND DIS NOS 1 04/09/2007 12/12/2012 Sebaceous cyst 02/08/2008 12/12/2012 Symptomatic menopausal or female climacteric sta tracy 02/04/2008 04/14/2013 Personal history of malignant neoplasm of breast 02/04/2008 04/15/2014 Other specified disorder of bladder 02/04/2008 02/13/2011 Nocturia 02/04/2008 04/15/2014 Episode Elevated Glucose after Steriod 8 04/15/2014 Diarrhea 10/14/2007 04/14/2013 Abdominal pain, left lower quadrant 10/08/2007 04/14/2013 MALIGN NEOPL BREAST NOS 08/18/2007 04/15/19 15 Postmenopausal atrophic vaginitis 07/28/2007 04/15/2014 HX BREAST CANCER 07/01/2007 04/09/2021 Overview: summer, and 2007. On tamoxifen Last Assessment & Plan: Summer of 2015, and 2007. On tamoxifen Lump or mass in breast 06/24/2007 4 HX OF TUBULAR ADENOMA 04/27/2007 04/09/2021 NEURALGIA///NERV ROOT/PLEXUS DIS NEC 03/25/2007 04/15/2014 XEROSIS///SEBACEOUS GLAND DIS NEC 03/25/2007 02/17/2012 Seborrheic dermatitis, unspecified 03/25/2007 02/17/2012 Palpitations 01/21/2006 02/17/2012 DEGENERATED DISK DISEASE LUMBOSACRAL-NO MYELOPAT HY 01/21/2006 02/17/2012 ELEVATED SGPT 01/21/2006 02/17/2012 SEBORRHEIC KERATOSES 11/25/2005 02/17/2012 ACTINIC DAMAGE//CHR SOLAR SKIN DAMAGE NOS 200502/17/2012 SURGICAL SCAR & FIBROSIS OF SKIN 11/25/2005 02/17/2012 DERMATOFIBROMAS///BENIGN DARINEL SKIN LEG 11/25/2005 02/17/2012 INTRADERMAL NEVI (MELANOCYTIC)/// DARINEL SKIN TRUNK 11/25/2005 02/17/2012 SKIN TAG PAPILLOMAS///SKIN HYPERTRO/ATROPH NOS 0 11/25/2005 02/17/2012 Abdominal pain, unspecified site 10/25/2005 02/17/2012 Sprain of neck 07/05/2005 02/17/2012 FATTY INFILTRATION LIVER 05/14/2005 022 Other diseases of pharynx, not elsewhere classif ied(478.29) 04/14/2013 Unspecified hemorrhoids without mention of compl ication 04/14/2013 Overview: Hemorrhoids Lumbago 04/15/2014 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 Merino on recommendation of Dr. Angeline nath Last Assessment & Plan: She is on asacol for the past few months, it was started by Dr. Merino on recommendation of Dr. 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 Tried to abx daily but developed a c diff. This plan is agreed upon by her onco and her urologist Last Assessment & Plan: Estrogen is contraindicated for her breast cancer but she is not able to keep the UTI off. Tried to abx daily but developed a c diff. This plan is agreed upon by her onco and her urologist Malignant neoplasm of right female breast 201504/09/2021 Overview: The patient had tamoxifen for 5 years and then a gap and resumed after getting cancer for the second time. Last Assessment & Plan: The patient had tamoxifen for 5 years and then a gap and resumed after getting cancer for the second time. Abnormal mammogram of right breast 07/17/2015 04/09/2021 Pain of both shoulder joints 02/21/2015 Other and unspecified noninf ectious gastroenteritis and colitis(558.9) 11/03/2014 11/03/2014 Other specified rheumatoid arthritis, multiple s ites 05/06/2014 07/01/2018 Overview: Dx: 2014 She is on methotrexate and plaquenil Last Assessment & Plan: Dx: 2014 She is on methotrexate and plaquenil Acne rosacea 11/07/2013 04/15/2014 Folliculitis 11/07/2013 04/15/2014 Inflamed seborrheic keratosis 11/07/2013 Xerosis cutis 11/07/2013 04/15/2014 Solar lentigo 11/07/2013 04/15/2014 Crowley angioma 11/07/2013 04/15/2014 Pruritus 11/07/2013 04/15/2014 Backache, unspecified 07/09/2013 04/15/2014 Cutaneous skin tags 12/12/2012 04/14/2013 Intradermal nevus 12/12/2012 04/14/2013 Melanocytic nevi of trunk 12/12/20122013 Dermatofibroma of lower leg 12/12/201203/18 Urinary tract infection 09/02/2012 04/15/19 15 Abdominal pain 09/02/2012 04/15/2014 C. difficile colitis 09/02/2012 04/15/2014 Diverticulitis of colon (wit hout mention of hemorrhage)(562.11) 06/15/2012 04/15/2014 Other Seborrheic Keratoses 05/29/201204/15 Actinic skin damage 05/29/2012 04/15/2014 Epidermal cyst: L upper side nose 06/01/2011 04/15/2014 Xerosis cutis 06/01/2011 04/14/2013 Eczema intertrigo 04/25/2011 04/15/2014 Eczematous dermatitis 04/25/2011 04/14/2013 Intertrigo: Irritant fold area dermatitis 201104/14/2013 Urgency of urination 02/13/2011 04/15/2014 Female stress incontinence 02/13/201104/15 Urge incontinence 02/13/2011 04/15/2014 Recurrent UTI 01/28/2011 04/15/2014 Pain in joint, pelvic region and thigh 0 04/15/2014 Family history of malignant neoplasm of ovary 04/14/2013 Solar Lentigines 05/18/2009 04/14/2013 Crowley Angioma//Capillary Angioma 05/18/2009 04/14/2013 Melanocytic nevus of face 05/18/20092013 Melanocytic nevus of trunk 05/18/200904/14 SVT (supraventricular tachycardia) 03/31/2009 04/09/2021 Last Assessment & Plan: She is on coumadin, metoprolol. SEBORRHEIC KERATOSIS: IRRITATED//INFLAMED 200712/12/2012 Viral warts, unspecified 02/08/2008 013 Benign neoplasm of skin of o ther and unspecified parts of face 02/08/2008 12/12/2012 SEBACEOUS HYPERPLASIA//SEBACEOUS GLAND DIS NOS 1 04/09/2007 12/12/2012 Sebaceous cyst 02/08/2008 12/12/2012 Symptomatic menopausal or female climacteric sta tracy 02/04/2008 04/14/2013 Personal history of malignant neoplasm of breast 02/04/2008 04/15/2014 Other specified disorder of bladder 02/04/2008 02/13/2011 Nocturia 02/04/2008 04/15/2014 Episode Elevated Glucose after Steriod 8 04/15/2014 Diarrhea 10/14/2007 04/14/2013 Abdominal pain, left lower quadrant 10/08/2007 04/14/2013 MALIGN NEOPL BREAST NOS 08/18/2007 04/15/19 15 Postmenopausal atrophic vaginitis 07/28/2007 04/15/2014 HX BREAST CANCER 07/01/2007 04/09/2021 Overview: summer, and 2007. On tamoxifen Last Assessment & Plan: Summer of 2015, and 2007. On tamoxifen Lump or mass in breast 06/24/2007 4 HX OF TUBULAR ADENOMA 04/27/2007 04/09/2021 NEURALGIA///NERV ROOT/PLEXUS DIS NEC 03/25/2007 04/15/2014 XEROSIS///SEBACEOUS GLAND DIS NEC 03/25/2007 02/17/2012 Seborrheic dermatitis, unspecified 03/25/2007 02/17/2012 Palpitations 01/21/2006 02/17/2012 DEGENERATED DISK DISEASE LUMBOSACRAL-NO MYELOPAT HY 01/21/2006 02/17/2012 ELEVATED SGPT 01/21/2006 02/17/2012 SEBORRHEIC KERATOSES 11/25/2005 02/17/2012 ACTINIC DAMAGE//CHR SOLAR SKIN DAMAGE NOS 200502/17/2012 SURGICAL SCAR & FIBROSIS OF SKIN 11/25/2005 02/17/2012 DERMATOFIBROMAS///BENIGN DARINEL SKIN LEG 11/25/2005 02/17/2012 INTRADERMAL NEVI (MELANOCYTIC)/// DARINEL SKIN TRUNK 11/25/2005 02/17/2012 SKIN TAG PAPILLOMAS///SKIN HYPERTRO/ATROPH NOS 0 11/25/2005 02/17/2012 Abdominal pain, unspecified site 10/25/2005 02/17/2012 Sprain of neck 07/05/2005 02/17/2012 FATTY INFILTRATION LIVER 05/14/2005 022 Other diseases of pharynx, not elsewhere classif ied(478.29) 04/14/2013 Unspecified hemorrhoids without mention of compl ication 04/14/2013 Overview: Hemorrhoids Lumbago 04/15/2014 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 Merino on recommendation of Dr. Angeline nath Last Assessment & Plan: She is on asacol for the past few months, it was started by Dr. Merino on recommendation of Dr. 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 Tried to abx daily but developed a c diff. This plan is agreed upon by her onco and her urologist Last Assessment & Plan: Estrogen is contraindicated for her breast cancer but she is not able to keep the UTI off. Tried to abx daily but developed a c diff. This plan is agreed upon by her onco and her urologist Malignant neoplasm of right female breast 201504/09/2021 Overview: The patient had tamoxifen for 5 years and then a gap and resumed after getting cancer for the second time. Last Assessment & Plan: The patient had tamoxifen for 5 years and then a gap and resumed after getting cancer for the second time. Abnormal mammogram of right breast 07/17/2015 04/09/2021 Pain of both shoulder joints 02/21/2015 Other and unspecified noninf ectious gastroenteritis and colitis(558.9) 11/03/2014 11/03/2014 Other specified rheumatoid arthritis, multiple s ites 05/06/2014 07/01/2018 Overview: Dx: 2014 She is on methotrexate and plaquenil Last Assessment & Plan: Dx: 2014 She is on methotrexate and plaquenil Acne rosacea 11/07/2013 04/15/2014 Folliculitis 11/07/2013 04/15/2014 Inflamed seborrheic keratosis 11/07/2013 Xerosis cutis 11/07/2013 04/15/2014 Solar lentigo 11/07/2013 04/15/2014 Crowley angioma 11/07/2013 04/15/2014 Pruritus 11/07/2013 04/15/2014 Backache, unspecified 07/09/2013 04/15/2014 Cutaneous skin tags 12/12/2012 04/14/2013 Intradermal nevus 12/12/2012 04/14/2013 Melanocytic nevi of trunk 12/12/20122013 Dermatofibroma of lower leg 12/12/201203/18 Urinary tract infection 09/02/2012 04/15/19 15 Abdominal pain 09/02/2012 04/15/2014 C. difficile colitis 09/02/2012 04/15/2014 Diverticulitis of colon (wit hout mention of hemorrhage)(562.11) 06/15/2012 04/15/2014 Other Seborrheic Keratoses 05/29/201204/15 Actinic skin damage 05/29/2012 04/15/2014 Epidermal cyst: L upper side nose 06/01/2011 04/15/2014 Xerosis cutis 06/01/2011 04/14/2013 Eczema intertrigo 04/25/2011 04/15/2014 Eczematous dermatitis 04/25/2011 04/14/2013 Intertrigo: Irritant fold area dermatitis 201104/14/2013 Urgency of urination 02/13/2011 04/15/2014 Female stress incontinence 02/13/201104/15 Urge incontinence 02/13/2011 04/15/2014 Recurrent UTI 01/28/2011 04/15/2014 Pain in joint, pelvic region and thigh 0 04/15/2014 Family history of malignant neoplasm of ovary 04/14/2013 Solar Lentigines 05/18/2009 04/14/2013 [place] Angioma//Capillary Angioma 05/18/2009 04/14/2013 Melanocytic nevus of face 05/18/20092013 Melanocytic nevus of trunk 05/18/200904/14 SVT (supraventricular tachycardia) 03/31/2009 04/09/2021 Last Assessment & Plan: She is on coumadin, metoprolol. SEBORRHEIC KERATOSIS: IRRITATED//INFLAMED 200712/12/2012 Viral warts, unspecified 02/08/2008 013 Benign neoplasm of skin of o ther and unspecified parts of face 02/08/2008 12/12/2012 SEBACEOUS HYPERPLASIA//SEBACEOUS GLAND DIS NOS 1 04/09/2007 12/12/2012 Sebaceous cyst 02/08/2008 12/12/2012 Symptomatic menopausal or female climacteric sta tracy 02/04/2008 04/14/2013 Personal history of malignant neoplasm of breast 02/04/2008 04/15/2014 Other specified disorder of bladder 02/04/2008 02/13/2011 Nocturia 02/04/2008 04/15/2014 Episode Elevated Glucose after Steriod 8 04/15/2014 Diarrhea 10/14/2007 04/14/2013 Abdominal pain, left lower quadrant 10/08/2007 04/14/2013 MALIGN NEOPL BREAST NOS 08/18/2007 04/15/19 15 Postmenopausal atrophic vaginitis 07/28/2007 04/15/2014 HX BREAST CANCER 07/01/2007 04/09/2021 Overview: summer, and 2007. On tamoxifen Last Assessment & Plan: Summer of 2015, and 2007. On tamoxifen Lump or mass in breast 06/24/2007 4 HX OF TUBULAR ADENOMA 04/27/2007 04/09/2021 NEURALGIA///NERV ROOT/PLEXUS DIS NEC 03/25/2007 04/15/2014 XEROSIS///SEBACEOUS GLAND DIS NEC 03/25/2007 02/17/2012 Seborrheic dermatitis, unspecified 03/25/2007 02/17/2012 Palpitations 01/21/2006 02/17/2012 DEGENERATED DISK DISEASE LUMBOSACRAL-NO MYELOPAT HY 01/21/2006 02/17/2012 ELEVATED SGPT 01/21/2006 02/17/2012 SEBORRHEIC KERATOSES 11/25/2005 02/17/2012 ACTINIC DAMAGE//CHR SOLAR SKIN DAMAGE NOS 200502/17/2012 SURGICAL SCAR & FIBROSIS OF SKIN 11/25/2005 02/17/2012 DERMATOFIBROMAS///BENIGN DARINEL SKIN LEG 11/25/2005 02/17/2012 INTRADERMAL NEVI (MELANOCYTIC)/// DARINEL SKIN TRUNK 11/25/2005 02/17/2012 SKIN TAG PAPILLOMAS///SKIN HYPERTRO/ATROPH NOS 0 11/25/2005 02/17/2012 Abdominal pain, unspecified site 10/25/2005 02/17/2012 Sprain of neck 07/05/2005 02/17/2012 FATTY INFILTRATION LIVER 05/14/2005 022 Other diseases of pharynx, not elsewhere classif ied(478.29) 04/14/2013 Unspecified hemorrhoids without mention of compl ication 04/14/2013 Overview: Hemorrhoids Lumbago 04/15/2014 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 Merino on recommendation of Dr. Angeline nath Last Assessment & Plan: She is on asacol for the past few months, it was started by Dr. Merino on recommendation of Dr. 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, estrogen receptor positive 06/03/2017 07/06/2021 Personal history of breast cancer 12/18/2016 04/09/2021 Overview: Added automatically from request for surgery [id number] Permanent atrial fibrillation 12/26/2015 Diverticulitis of large inte angélica without perforation or abscess without bleeding 11/17/2015 04/09/2021 Lymphedema of arm 10/16/2015 04/09/2021 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 female breast 08/04/2015 04/09/2021 Malignant neoplasm of right female breast 201504/09/2021 Overview: The patient had tamoxifen for 5 years and then a gap and resumed after getting cancer for the second time. Last Assessment & Plan: The patient had tamoxifen for 5 years and then a gap and resumed after getting cancer for the second time. Abnormal mammogram of right breast 07/17/2015 04/09/2021 Pain of both shoulder joints 02/21/2015 Other and unspecified noninf ectious gastroenteritis and colitis(558.9) 11/03/2014 11/03/2014 Other specified rheumatoid arthritis, multiple s ites 05/06/2014 07/01/2018 Overview: Dx: 2014 She is on methotrexate and plaquenil Last Assessment & Plan: Dx: 2014 She is on methotrexate and plaquenil Acne rosacea 11/07/2013 04/15/2014 Folliculitis 11/07/2013 04/15/2014 Inflamed seborrheic keratosis 11/07/2013 Xerosis cutis 11/07/2013 04/15/2014 Solar lentigo 11/07/2013 04/15/2014 Crowley angioma 11/07/2013 04/15/2014 Pruritus 11/07/2013 04/15/2014 Backache, unspecified 07/09/2013 04/15/2014 Cutaneous skin tags 12/12/2012 04/14/2013 Intradermal nevus 12/12/2012 04/14/2013 Melanocytic nevi of trunk 12/12/20122013 Dermatofibroma of lower leg 12/12/201203/18 Urinary tract infection 09/02/2012 04/15/19 15 Abdominal pain 09/02/2012 04/15/2014 C. difficile colitis 09/02/2012 04/15/2014 Diverticulitis of colon (wit hout mention of hemorrhage)(562.11) 06/15/2012 04/15/2014 Other Seborrheic Keratoses 05/29/201204/15 Actinic skin damage 05/29/2012 04/15/2014 Epidermal cyst: L upper side nose 06/01/2011 04/15/2014 Xerosis cutis 06/01/2011 04/14/2013 Eczema intertrigo 04/25/2011 04/15/2014 Eczematous dermatitis 04/25/2011 04/14/2013 Intertrigo: Irritant fold area dermatitis 201104/14/2013 Urgency of urination 02/13/2011 04/15/2014 Female stress incontinence 02/13/201104/15 Urge incontinence 02/13/2011 04/15/2014 Recurrent UTI 01/28/2011 04/15/2014 Pain in joint, pelvic region and thigh 0 04/15/2014 Family history of malignant neoplasm of ovary 04/14/2013 Solar Lentigines 05/18/2009 04/14/2013 Crowley Angioma//Capillary Angioma 05/18/2009 04/14/2013 Melanocytic nevus of face 05/18/20092013 Melanocytic nevus of trunk 05/18/200904/14 SVT (supraventricular tachycardia) 03/31/2009 04/09/2021 Last Assessment & Plan: She is on coumadin, metoprolol. SEBORRHEIC KERATOSIS: IRRITATED//INFLAMED 200712/12/2012 Viral warts, unspecified 02/08/2008 013 Benign neoplasm of skin of o ther and unspecified parts of face 02/08/2008 12/12/2012 SEBACEOUS HYPERPLASIA//SEBACEOUS GLAND DIS NOS 1 04/09/2007 12/12/2012 Sebaceous cyst 02/08/2008 12/12/2012 Symptomatic menopausal or female climacteric sta tracy 02/04/2008 04/14/2013 Personal history of malignant neoplasm of breast 02/04/2008 04/15/2014 Other specified disorder of bladder 02/04/2008 02/13/2011 Nocturia 02/04/2008 04/15/2014 Episode Elevated Glucose after Steriod 8 04/15/2014 Diarrhea 10/14/2007 04/14/2013 Abdominal pain, left lower quadrant 10/08/2007 04/14/2013 MALIGN NEOPL BREAST NOS 08/18/2007 04/15/19 15 Postmenopausal atrophic vaginitis 07/28/2007 04/15/2014 HX BREAST CANCER 07/01/2007 04/09/2021 Overview: summer, and 2007. On tamoxifen Last Assessment & Plan: summer, and 2007. On tamoxifen Lump or mass in breast 06/24/2007 4 HX OF TUBULAR ADENOMA 04/27/2007 04/09/2021 NEURALGIA///NERV ROOT/PLEXUS DIS NEC 03/25/2007 04/15/2014 XEROSIS///SEBACEOUS GLAND DIS NEC 03/25/2007 02/17/2012 Seborrheic dermatitis, unspecified 03/25/2007 02/17/2012 Palpitations 01/21/2006 02/17/2012 DEGENERATED DISK DISEASE LUMBOSACRAL-NO MYELOPAT HY 01/21/2006 02/17/2012 ELEVATED SGPT 01/21/2006 02/17/2012 SEBORRHEIC KERATOSES 11/25/2005 02/17/2012 ACTINIC DAMAGE//CHR SOLAR SKIN DAMAGE NOS 200502/17/2012 SURGICAL SCAR & FIBROSIS OF SKIN 11/25/2005 02/17/2012 DERMATOFIBROMAS///BENIGN DARINEL SKIN LEG 11/25/2005 02/17/2012 INTRADERMAL NEVI (MELANOCYTIC)/// DARINEL SKIN TRUNK 11/25/2005 02/17/2012 SKIN TAG PAPILLOMAS///SKIN HYPERTRO/ATROPH NOS 0 11/25/2005 02/17/2012 Abdominal pain, unspecified site 10/25/2005 02/17/2012 Sprain of neck 07/05/2005 02/17/2012 FATTY INFILTRATION LIVER 05/14/2005 022 Other diseases of pharynx, not elsewhere classif ied(478.29) 04/14/2013 Unspecified hemorrhoids without mention of compl ication 04/14/2013 Overview: Hemorrhoids Lumbago 04/15/2014 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 Merino on recommendation of Dr. Angeline nath Last Assessment & Plan: She is on asacol for the past few months, it was started by Dr. Baggot on recommendation of Dr. 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, estrogen receptor positive 06/03/2017 07/06/2021 Personal history of breast cancer 12/18/2016 04/09/2021 Overview: Added automatically from request for surgery [id number] Permanent atrial fibrillation 12/26/2015 Diverticulitis of large inte angélica without perforation or abscess without bleeding 11/17/2015 04/09/2021 Lymphedema of arm 10/16/2015 04/09/2021 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 female breast 08/04/2015 04/09/2021 Malignant neoplasm of right female breast 201504/09/2021 Overview: The patient had tamoxifen for 5 years and then a gap and resumed after getting cancer for the second time. Last Assessment & Plan: The patient had tamoxifen for 5 years and then a gap and resumed after getting cancer for the second time. Abnormal mammogram of right breast 07/17/2015 04/09/2021 Pain of both shoulder joints 02/21/2015 Other and unspecified noninf ectious gastroenteritis and colitis(558.9) 11/03/2014 11/03/2014 Other specified rheumatoid arthritis, multiple s ites 05/06/2014 07/01/2018 Overview: Dx: 2014 She is on methotrexate and plaquenil Last Assessment & Plan: Dx: 2014 She is on methotrexate and plaquenil Acne rosacea 11/07/2013 04/15/2014 Folliculitis 11/07/2013 04/15/2014 Inflamed seborrheic keratosis 11/07/2013 Xerosis cutis 11/07/2013 04/15/2014 Solar lentigo 11/07/2013 04/15/2014 Crowley angioma 11/07/2013 04/15/2014 Pruritus 11/07/2013 04/15/2014 Backache, unspecified 07/09/2013 04/15/2014 Cutaneous skin tags 12/12/2012 04/14/2013 Intradermal nevus 12/12/2012 04/14/2013 Melanocytic nevi of trunk 12/12/20122013 Dermatofibroma of lower leg 12/12/201203/18 Urinary tract infection 09/02/2012 04/15/19 15 Abdominal pain 09/02/2012 04/15/2014 C. difficile colitis 09/02/2012 04/15/2014 Diverticulitis of colon (wit hout mention of hemorrhage)(562.11) 06/15/2012 04/15/2014 Other Seborrheic Keratoses 05/29/201204/15 Actinic skin damage 05/29/2012 04/15/2014 Epidermal cyst: L upper side nose 06/01/2011 04/15/2014 Xerosis cutis 06/01/2011 04/14/2013 Eczema intertrigo 04/25/2011 04/15/2014 Eczematous dermatitis 04/25/2011 04/14/2013 Intertrigo: Irritant fold area dermatitis 201104/14/2013 Urgency of urination 02/13/2011 04/15/2014 Female stress incontinence 02/13/201104/15 Urge incontinence 02/13/2011 04/15/2014 Recurrent UTI 01/28/2011 04/15/2014 Pain in joint, pelvic region and thigh 0 04/15/2014 Family history of malignant neoplasm of ovary 04/14/2013 Solar Lentigines 05/18/2009 04/14/2013 Crowley Angioma//Capillary Angioma 05/18/2009 04/14/2013 Melanocytic nevus of face 05/18/20092013 Melanocytic nevus of trunk 05/18/200904/14 SVT (supraventricular tachycardia) 03/31/2009 04/09/2021 Last Assessment & Plan: She is on coumadin, metoprolol. SEBORRHEIC KERATOSIS: IRRITATED//INFLAMED 200712/12/2012 Viral warts, unspecified 02/08/2008 013 Benign neoplasm of skin of o ther and unspecified parts of face 02/08/2008 12/12/2012 SEBACEOUS HYPERPLASIA//SEBACEOUS GLAND DIS NOS 1 04/09/2007 12/12/2012 Sebaceous cyst 02/08/2008 12/12/2012 Symptomatic menopausal or female climacteric sta tracy 02/04/2008 04/14/2013 Personal history of malignant neoplasm of breast 02/04/2008 04/15/2014 Other specified disorder of bladder 02/04/2008 02/13/2011 Nocturia 02/04/2008 04/15/2014 Episode Elevated Glucose after Steriod 8 04/15/2014 Diarrhea 10/14/2007 04/14/2013 Abdominal pain, left lower quadrant 10/08/2007 04/14/2013 MALIGN NEOPL BREAST NOS 08/18/2007 04/15/19 15 Postmenopausal atrophic vaginitis 07/28/2007 04/15/2014 HX BREAST CANCER 07/01/2007 04/09/2021 Overview: Summer of 2015, and 2007. On tamoxifen Last Assessment & Plan: summer, and 2007. On tamoxifen Lump or mass in breast 06/24/2007 4 HX OF TUBULAR ADENOMA 04/27/2007 04/09/2021 NEURALGIA///NERV ROOT/PLEXUS DIS NEC 03/25/2007 04/15/2014 XEROSIS///SEBACEOUS GLAND DIS NEC 03/25/2007 02/17/2012 Seborrheic dermatitis, unspecified 03/25/2007 02/17/2012 Palpitations 01/21/2006 02/17/2012 DEGENERATED DISK DISEASE LUMBOSACRAL-NO MYELOPAT HY 01/21/2006 02/17/2012 ELEVATED SGPT 01/21/2006 02/17/2012 SEBORRHEIC KERATOSES 11/25/2005 02/17/2012 ACTINIC DAMAGE//CHR SOLAR SKIN DAMAGE NOS 200502/17/2012 SURGICAL SCAR & FIBROSIS OF SKIN 11/25/2005 02/17/2012 DERMATOFIBROMAS///BENIGN DARINEL SKIN LEG 11/25/2005 02/17/2012 INTRADERMAL NEVI (MELANOCYTIC)/// DARINEL SKIN TRUNK 11/25/2005 02/17/2012 SKIN TAG PAPILLOMAS///SKIN HYPERTRO/ATROPH NOS 0 11/25/2005 02/17/2012 Abdominal pain, unspecified site 10/25/2005 02/17/2012 Sprain of neck 07/05/2005 02/17/2012 FATTY INFILTRATION LIVER 05/14/2005 022 Other diseases of pharynx, not elsewhere classif ied(478.29) 04/14/2013 Unspecified hemorrhoids without mention of compl ication 04/14/2013 Overview: Hemorrhoids Lumbago 04/15/2014 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 Merino on recommendation of Dr. Angeline nath Last Assessment & Plan: She is on asacol for the past few months, it was started by Dr. Merino on recommendation of Dr. 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, estrogen receptor positive 06/03/2017 07/06/2021 Personal history of breast cancer 12/18/2016 04/09/2021 Overview: Added automatically from request for surgery [id number] Permanent atrial fibrillation 12/26/2015 Diverticulitis of large inte angélica without perforation or abscess without bleeding 11/17/2015 04/09/2021 Lymphedema of arm 10/16/2015 04/09/2021 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 female breast 08/04/2015 04/09/2021 Malignant neoplasm of right female breast 201504/09/2021 Overview: The patient had tamoxifen for 5 years and then a gap and resumed after getting cancer for the second time. Last Assessment & Plan: The patient had tamoxifen for 5 years and then a gap and resumed after getting cancer for the second time. Abnormal mammogram of right breast 07/17/2015 04/09/2021 Pain of both shoulder joints 02/21/2015 Other and unspecified noninf ectious gastroenteritis and colitis(558.9) 11/03/2014 11/03/2014 Other specified rheumatoid arthritis, multiple s ites 05/06/2014 07/01/2018 Overview: Dx: 2014 She is on methotrexate and plaquenil Last Assessment & Plan: Dx: 2014 She is on methotrexate and plaquenil Acne rosacea 11/07/2013 04/15/2014 Folliculitis 11/07/2013 04/15/2014 Inflamed seborrheic keratosis 11/07/2013 Xerosis cutis 11/07/2013 04/15/2014 Solar lentigo 11/07/2013 04/15/2014 Crowley angioma 11/07/2013 04/15/2014 Pruritus 11/07/2013 04/15/2014 Backache, unspecified 07/09/2013 04/15/2014 Cutaneous skin tags 12/12/2012 04/14/2013 Intradermal nevus 12/12/2012 04/14/2013 Melanocytic nevi of trunk 12/12/20122013 Dermatofibroma of lower leg 12/12/201203/18 Urinary tract infection 09/02/2012 04/15/19 15 Abdominal pain 09/02/2012 04/15/2014 C. difficile colitis 09/02/2012 04/15/2014 Diverticulitis of colon (wit hout mention of hemorrhage)(562.11) 06/15/2012 04/15/2014 Other Seborrheic Keratoses 05/29/201204/15 Actinic skin damage 05/29/2012 04/15/2014 Epidermal cyst: L upper side nose 06/01/2011 04/15/2014 Xerosis cutis 06/01/2011 04/14/2013 Eczema intertrigo 04/25/2011 04/15/2014 Eczematous dermatitis 04/25/2011 04/14/2013 Intertrigo: Irritant fold area dermatitis 201104/14/2013 Urgency of urination 02/13/2011 04/15/2014 Female stress incontinence 02/13/201104/15 Urge incontinence 02/13/2011 04/15/2014 Recurrent UTI 01/28/2011 04/15/2014 Pain in joint, pelvic region and thigh 0 04/15/2014 Family history of malignant neoplasm of ovary 04/14/2013 Solar Lentigines 05/18/2009 04/14/2013 Crowley Angioma//Capillary Angioma 05/18/2009 04/14/2013 Melanocytic nevus of face 05/18/20092013 Melanocytic nevus of trunk 05/18/200904/14 SVT (supraventricular tachycardia) 03/31/2009 04/09/2021 Last Assessment & Plan: She is on coumadin, metoprolol. SEBORRHEIC KERATOSIS: IRRITATED//INFLAMED 200712/12/2012 Viral warts, unspecified 02/08/2008 013 Benign neoplasm of skin of o ther and unspecified parts of face 02/08/2008 12/12/2012 SEBACEOUS HYPERPLASIA//SEBACEOUS GLAND DIS NOS 1 04/09/2007 12/12/2012 Sebaceous cyst 02/08/2008 12/12/2012 Symptomatic menopausal or female climacteric sta tracy 02/04/2008 04/14/2013 Personal history of malignant neoplasm of breast 02/04/2008 04/15/2014 Other specified disorder of bladder 02/04/2008 02/13/2011 Nocturia 02/04/2008 04/15/2014 Episode Elevated Glucose after Steriod 8 04/15/2014 Diarrhea 10/14/2007 04/14/2013 Abdominal pain, left lower quadrant 10/08/2007 04/14/2013 MALIGN NEOPL BREAST NOS 08/18/2007 04/15/19 15 Postmenopausal atrophic vaginitis 07/28/2007 04/15/2014 HX BREAST CANCER 07/01/2007 04/09/2021 Overview: summer, and 2007. On tamoxifen Last Assessment & Plan: summer, and 2007. On tamoxifen Lump or mass in breast 06/24/2007 4 HX OF TUBULAR ADENOMA 04/27/2007 04/09/2021 NEURALGIA///NERV ROOT/PLEXUS DIS NEC 03/25/2007 04/15/2014 XEROSIS///SEBACEOUS GLAND DIS NEC 03/25/2007 02/17/2012 Seborrheic dermatitis, unspecified 03/25/2007 02/17/2012 Palpitations 01/21/2006 02/17/2012 DEGENERATED DISK DISEASE LUMBOSACRAL-NO MYELOPAT HY 01/21/2006 02/17/2012 ELEVATED SGPT 01/21/2006 02/17/2012 SEBORRHEIC KERATOSES 11/25/2005 02/17/2012 ACTINIC DAMAGE//CHR SOLAR SKIN DAMAGE NOS 200502/17/2012 SURGICAL SCAR & FIBROSIS OF SKIN 11/25/2005 02/17/2012 DERMATOFIBROMAS///BENIGN DARINEL SKIN LEG 11/25/2005 02/17/2012 INTRADERMAL NEVI (MELANOCYTIC)/// DARINEL SKIN TRUNK 11/25/2005 02/17/2012 SKIN TAG PAPILLOMAS///SKIN HYPERTRO/ATROPH NOS 0 11/25/2005 02/17/2012 Abdominal pain, unspecified site 10/25/2005 02/17/2012 Sprain of neck 07/05/2005 02/17/2012 FATTY INFILTRATION LIVER 05/14/2005 022 Other diseases of pharynx, not elsewhere classif ied(478.29) 04/14/2013 Unspecified hemorrhoids without mention of compl ication 04/14/2013 Overview: Hemorrhoids Lumbago 04/15/2014 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 Merino on recommendation of Dr. Angeline nath Last Assessment & Plan: She is on asacol for the past few months, it was started by Dr. Merino on recommendation of Dr. 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, estrogen receptor positive 06/03/2017 07/06/2021 Personal history of breast cancer 12/18/2016 04/09/2021 Overview: Added automatically from request for surgery [id number] Permanent atrial fibrillation 12/26/2015 Diverticulitis of large inte angélica without perforation or abscess without bleeding 11/17/2015 04/09/2021 Lymphedema of arm 10/16/2015 04/09/2021 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 female breast 08/04/2015 04/09/2021 Malignant neoplasm of right female breast 201504/09/2021 Overview: The patient had tamoxifen for 5 years and then a gap and resumed after getting cancer for the second time. Last Assessment & Plan: The patient had tamoxifen for 5 years and then a gap and resumed after getting cancer for the second time. Abnormal mammogram of right breast 07/17/2015 04/09/2021 Pain of both shoulder joints 02/21/2015 Other and unspecified noninf ectious gastroenteritis and colitis(558.9) 11/03/2014 11/03/2014 Other specified rheumatoid arthritis, multiple s ites 05/06/2014 07/01/2018 Overview: Dx: 2014 She is on methotrexate and plaquenil Last Assessment & Plan: Dx: 2014 She is on methotrexate and plaquenil Acne rosacea 11/07/2013 04/15/2014 Folliculitis 11/07/2013 04/15/2014 Inflamed seborrheic keratosis 11/07/2013 Xerosis cutis 11/07/2013 04/15/2014 Solar lentigo 11/07/2013 04/15/2014 Crowley angioma 11/07/2013 04/15/2014 Pruritus 11/07/2013 04/15/2014 Backache, unspecified 07/09/2013 04/15/2014 Cutaneous skin tags 12/12/2012 04/14/2013 Intradermal nevus 12/12/2012 04/14/2013 Melanocytic nevi of trunk 12/12/20122013 Dermatofibroma of lower leg 12/12/201203/18 Urinary tract infection 09/02/2012 04/15/19 15 Abdominal pain 09/02/2012 04/15/2014 C. difficile colitis 09/02/2012 04/15/2014 Diverticulitis of colon (wit hout mention of hemorrhage)(562.11) 06/15/2012 04/15/2014 Other Seborrheic Keratoses 05/29/201204/15 Actinic skin damage 05/29/2012 04/15/2014 Epidermal cyst: L upper side nose 06/01/2011 04/15/2014 Xerosis cutis 06/01/2011 04/14/2013 Eczema intertrigo 04/25/2011 04/15/2014 Eczematous dermatitis 04/25/2011 04/14/2013 Intertrigo: Irritant fold area dermatitis 201104/14/2013 Urgency of urination 02/13/2011 04/15/2014 Female stress incontinence 02/13/201104/15 Urge incontinence 02/13/2011 04/15/2014 Recurrent UTI 01/28/2011 04/15/2014 Pain in joint, pelvic region and thigh 0 04/15/2014 Family history of malignant neoplasm of ovary 04/14/2013 Solar Lentigines 05/18/2009 04/14/2013 Crowley Angioma//Capillary Angioma 05/18/2009 04/14/2013 Melanocytic nevus of face 05/18/20092013 Melanocytic nevus of trunk 05/18/200904/14 SVT (supraventricular tachycardia) 03/31/2009 04/09/2021 Last Assessment & Plan: She is on coumadin, metoprolol. SEBORRHEIC KERATOSIS: IRRITATED//INFLAMED 200712/12/2012 Viral warts, unspecified 02/08/2008 013 Benign neoplasm of skin of o ther and unspecified parts of face 02/08/2008 12/12/2012 SEBACEOUS HYPERPLASIA//SEBACEOUS GLAND DIS NOS 1 04/09/2007 12/12/2012 Sebaceous cyst 02/08/2008 12/12/2012 Symptomatic menopausal or female climacteric sta tracy 02/04/2008 04/14/2013 Personal history of malignant neoplasm of breast 02/04/2008 04/15/2014 Other specified disorder of bladder 02/04/2008 02/13/2011 Nocturia 02/04/2008 04/15/2014 Episode Elevated Glucose after Steriod 10/21/200 8 04/15/2014 Diarrhea 10/14/2007 04/14/2013 Abdominal pain, left lower quadrant 10/08/2007 04/14/2013 MALIGN NEOPL BREAST NOS 08/18/2007 04/15/19 15 Postmenopausal atrophic vaginitis 07/28/2007 04/15/2014 HX BREAST CANCER 07/01/2007 04/09/2021 Overview: summer, and 2008. On tamoxifen Last Assessment & Plan: summer, and 2007. On tamoxifen Lump or mass in breast 06/24/2007 4 HX OF TUBULAR ADENOMA 04/27/2007 04/09/2021 NEURALGIA///NERV ROOT/PLEXUS DIS NEC 03/25/2007 04/15/2014 XEROSIS///SEBACEOUS GLAND DIS NEC 03/25/2007 02/17/2012 Seborrheic dermatitis, unspecified 03/25/2007 02/17/2012 Palpitations 01/21/2006 02/17/2012 DEGENERATED DISK DISEASE LUMBOSACRAL-NO MYELOPAT HY 01/21/2006 02/17/2012 ELEVATED SGPT 01/21/2006 02/17/2012 SEBORRHEIC KERATOSES 11/25/2005 02/17/2012 ACTINIC DAMAGE//CHR SOLAR SKIN DAMAGE NOS 200502/17/2012 SURGICAL SCAR & FIBROSIS OF SKIN 11/25/2005 02/17/2012 DERMATOFIBROMAS///BENIGN DARINEL SKIN LEG 11/25/2005 02/17/2012 INTRADERMAL NEVI (MELANOCYTIC)/// DARINEL SKIN TRUNK 11/25/2005 02/17/2012 SKIN TAG PAPILLOMAS///SKIN HYPERTRO/ATROPH NOS 0 11/25/2005 02/17/2012 Abdominal pain, unspecified site 10/25/2005 02/17/2012 Sprain of neck 07/05/2005 02/17/2012 FATTY INFILTRATION LIVER 05/14/2005 022 Other diseases of pharynx, not elsewhere classif ied(478.29) 04/14/2013 Unspecified hemorrhoids without mention of compl ication 04/14/2013 Overview: Hemorrhoids Lumbago 04/15/2014 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 Merino on recommendation of Dr. Angeline nath Last Assessment & Plan: She is on asacol for the past few months, it was started by Dr. Merino on recommendation of Dr. 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, estrogen receptor positive 06/03/2017 07/06/2021 Personal history of breast cancer 12/18/2016 04/09/2021 Overview: Added automatically from request for surgery [id number] Permanent atrial fibrillation 12/26/2015 Diverticulitis of large inte angélica without perforation or abscess without bleeding 11/17/2015 04/09/2021 Lymphedema of arm 10/16/2015 04/09/2021 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 female breast 08/04/2015 04/09/2021 Malignant neoplasm of right female breast 201504/09/2021 Overview: The patient had tamoxifen for 5 years and then a gap and resumed after getting cancer for the second time. Last Assessment & Plan: The patient had tamoxifen for 5 years and then a gap and resumed after getting cancer for the second time. Abnormal mammogram of right breast 07/17/2015 04/09/2021 Pain of both shoulder joints 02/21/2015 Other and unspecified noninf ectious gastroenteritis and colitis(558.9) 11/03/2014 11/03/2014 Other specified rheumatoid arthritis, multiple s ites 05/06/2014 07/01/2018 Overview: Dx: 2014 She is on methotrexate and plaquenil Last Assessment & Plan: Dx: 2014 She is on methotrexate and plaquenil Acne rosacea 11/07/2013 04/15/2014 Folliculitis 11/07/2013 04/15/2014 Inflamed seborrheic keratosis 11/07/2013 Xerosis cutis 11/07/2013 04/15/2014 Solar lentigo 11/07/2013 04/15/2014 Crowley angioma 11/07/2013 04/15/2014 Pruritus 11/07/2013 04/15/2014 Backache, unspecified 07/09/2013 04/15/2014 Cutaneous skin tags 12/12/2012 04/14/2013 Intradermal nevus 12/12/2012 04/14/2013 Melanocytic nevi of trunk 12/12/20122013 Dermatofibroma of lower leg 12/12/201203/18 Urinary tract infection 09/02/2012 04/15/19 15 Abdominal pain 09/02/2012 04/15/2014 C. difficile colitis 09/02/2012 04/15/2014 Diverticulitis of colon (wit hout mention of hemorrhage)(562.11) 06/15/2012 04/15/2014 Other Seborrheic Keratoses 05/29/201204/15 Actinic skin damage 05/29/2012 04/15/2014 Epidermal cyst: L upper side nose 06/01/2011 04/15/2014 Xerosis cutis 06/01/2011 04/14/2013 Eczema intertrigo 04/25/2011 04/15/2014 Eczematous dermatitis 04/25/2011 04/14/2013 Intertrigo: Irritant fold area dermatitis 201104/14/2013 Urgency of urination 02/13/2011 04/15/2014 Female stress incontinence 02/13/201104/15 Urge incontinence 02/13/2011 04/15/2014 Recurrent UTI 01/28/2011 04/15/2014 Pain in joint, pelvic region and thigh 0 04/15/2014 Family history of malignant neoplasm of ovary 04/14/2013 Solar Lentigines 05/18/2009 04/14/2013 Crowley Angioma//Capillary Angioma 05/18/2009 04/14/2013 Melanocytic nevus of face 05/18/20092013 Melanocytic nevus of trunk 05/18/200904/14 SVT (supraventricular tachycardia) 03/31/2009 04/09/2021 Last Assessment & Plan: She is on coumadin, metoprolol. SEBORRHEIC KERATOSIS: IRRITATED//INFLAMED 200712/12/2012 Viral warts, unspecified 02/08/2008 013 Benign neoplasm of skin of o ther and unspecified parts of face 02/08/2008 12/12/2012 SEBACEOUS HYPERPLASIA//SEBACEOUS GLAND DIS NOS 1 04/09/2007 12/12/2012 Sebaceous cyst 02/08/2008 12/12/2012 Symptomatic menopausal or female climacteric sta tracy 02/04/2008 04/14/2013 Personal history of malignant neoplasm of breast 02/04/2008 04/15/2014 Other specified disorder of bladder 02/04/2008 02/13/2011 Nocturia 02/04/2008 04/15/2014 Episode Elevated Glucose after Steriod 8 04/15/2014 Diarrhea 10/14/2007 04/14/2013 Abdominal pain, left lower quadrant 10/08/2007 04/14/2013 MALIGN NEOPL BREAST NOS 08/18/2007 04/15/19 15 Postmenopausal atrophic vaginitis 07/28/2007 04/15/2014 HX BREAST CANCER 07/01/2007 04/09/2021 Overview: Summer of 2015, and 2007. On tamoxifen Last Assessment & Plan: summer, and 2007. On tamoxifen Lump or mass in breast 06/24/2007 4 HX OF TUBULAR ADENOMA 04/27/2007 04/09/2021 NEURALGIA///NERV ROOT/PLEXUS DIS NEC 03/25/2007 04/15/2014 XEROSIS///SEBACEOUS GLAND DIS NEC 03/25/2007 02/17/2012 Seborrheic dermatitis, unspecified 03/25/2007 02/17/2012 Palpitations 01/21/2006 02/17/2012 DEGENERATED DISK DISEASE LUMBOSACRAL-NO MYELOPAT HY 01/21/2006 02/17/2012 ELEVATED SGPT 01/21/2006 02/17/2012 SEBORRHEIC KERATOSES 11/25/2005 02/17/2012 ACTINIC DAMAGE//CHR SOLAR SKIN DAMAGE NOS 200502/17/2012 SURGICAL SCAR & FIBROSIS OF SKIN 11/25/2005 02/17/2012 DERMATOFIBROMAS///BENIGN DARINEL SKIN LEG 11/25/2005 02/17/2012 INTRADERMAL NEVI (MELANOCYTIC)/// DARINEL SKIN TRUNK 11/25/2005 02/17/2012 SKIN TAG PAPILLOMAS///SKIN HYPERTRO/ATROPH NOS 0 11/25/2005 02/17/2012 Abdominal pain, unspecified site 10/25/2005 02/17/2012 Sprain of neck 07/05/2005 02/17/2012 FATTY INFILTRATION LIVER 05/14/2005 022 Other diseases of pharynx, not elsewhere classif ied(478.29) 04/14/2013 Unspecified hemorrhoids without mention of compl ication 04/14/2013 Overview: Hemorrhoids Lumbago 04/15/2014 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 Merino on recommendation of Dr. Angeline nath Last Assessment & Plan: She is on asacol for the past few months, it was started by Dr. Merino on recommendation of Dr. 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, estrogen receptor positive 06/03/2017 07/06/2021 Personal history of breast cancer 12/18/2016 04/09/2021 Overview: Added automatically from request for surgery [id number] Permanent atrial fibrillation 12/26/2015 Diverticulitis of large inte angélica without perforation or abscess without bleeding 11/17/2015 04/09/2021 Lymphedema of arm 10/16/2015 04/09/2021 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 female breast 08/04/2015 04/09/2021 Malignant neoplasm of right female breast 201504/09/2021 Overview: The patient had tamoxifen for 5 years and then a gap and resumed after getting cancer for the second time. Last Assessment & Plan: The patient had tamoxifen for 5 years and then a gap and resumed after getting cancer for the second time. Abnormal mammogram of right breast 07/17/2015 04/09/2021 Pain of both shoulder joints 02/21/2015 Other and unspecified noninf ectious gastroenteritis and colitis(558.9) 11/03/2014 11/03/2014 Other specified rheumatoid arthritis, multiple s ites 05/06/2014 07/01/2018 Overview: Dx: 2014 She is on methotrexate and plaquenil Last Assessment & Plan: Dx: 2014 She is on methotrexate and plaquenil Acne rosacea 11/07/2013 04/15/2014 Folliculitis 11/07/2013 04/15/2014 Inflamed seborrheic keratosis 11/07/2013 Xerosis cutis 11/07/2013 04/15/2014 Solar lentigo 11/07/2013 04/15/2014 Crowley angioma 11/07/2013 04/15/2014 Pruritus 11/07/2013 04/15/2014 Backache, unspecified 07/09/2013 04/15/2014 Cutaneous skin tags 12/12/2012 04/14/2013 Intradermal nevus 12/12/2012 04/14/2013 Melanocytic nevi of trunk 12/12/20122013 Dermatofibroma of lower leg 12/12/201203/18 Urinary tract infection 09/02/2012 04/15/19 Abdominal pain 09/02/2012 04/15/2014 C. difficile colitis 09/02/2012 04/15/2014 Diverticulitis of colon (wit hout mention of hemorrhage)(562.11) 06/15/2012 04/15/2014 Other Seborrheic Keratoses 05/29/201204/15 Actinic skin damage 05/29/2012 04/15/2014 Epidermal cyst: L upper side nose 06/01/2011 04/15/2014 Xerosis cutis 06/01/2011 04/14/2013 Eczema intertrigo 04/25/2011 04/15/2014 Eczematous dermatitis 04/25/2011 04/14/2013 Intertrigo: Irritant fold area dermatitis 201104/14/2013 Urgency of urination 02/13/2011 04/15/2014 Female stress incontinence 02/13/201104/15 Urge incontinence 02/13/2011 04/15/2014 Recurrent UTI 01/28/2011 04/15/2014 Pain in joint, pelvic region and thigh 0 04/15/2014 Family history of malignant neoplasm of ovary 04/14/2013 Solar Lentigines 05/18/2009 04/14/2013 Crowley Angioma//Capillary Angioma 05/18/2009 04/14/2013 Melanocytic nevus of face 05/18/20092013 Melanocytic nevus of trunk 05/18/200904/14 SVT (supraventricular tachycardia) 03/31/2009 04/09/2021 Last Assessment & Plan: She is on coumadin, metoprolol. SEBORRHEIC KERATOSIS: IRRITATED//INFLAMED 200712/12/2012 Viral warts, unspecified 02/08/2008 013 Benign neoplasm of skin of o ther and unspecified parts of face 02/08/2008 12/12/2012 SEBACEOUS HYPERPLASIA//SEBACEOUS GLAND DIS NOS 1 04/09/2007 12/12/2012 Sebaceous cyst 02/08/2008 12/12/2012 Symptomatic menopausal or female climacteric sta tracy 02/04/2008 04/14/2013 Personal history of malignant neoplasm of breast 02/04/2008 04/15/2014 Other specified disorder of bladder 02/04/2008 02/13/2011 Nocturia 02/04/2008 04/15/2014 Episode Elevated Glucose after Steriod 8 04/15/2014 Diarrhea 10/14/2007 04/14/2013 Abdominal pain, left lower quadrant 10/08/2007 04/14/2013 MALIGN NEOPL BREAST NOS 08/18/2007 04/15/19 15 Postmenopausal atrophic vaginitis 07/28/2007 04/15/2014 HX BREAST CANCER 07/01/2007 04/09/2021 Overview: Summer of 2015, and 2007. On tamoxifen Last Assessment & Plan: summer, and 2007. On tamoxifen Lump or mass in breast 06/24/2007 4 HX OF TUBULAR ADENOMA 04/27/2007 04/09/2021 NEURALGIA///NERV ROOT/PLEXUS DIS NEC 03/25/2007 04/15/2014 XEROSIS///SEBACEOUS GLAND DIS NEC 03/25/2007 02/17/2012 Seborrheic dermatitis, unspecified 03/25/2007 02/17/2012 Palpitations 01/21/2006 02/17/2012 DEGENERATED DISK DISEASE LUMBOSACRAL-NO MYELOPAT HY 01/21/2006 02/17/2012 ELEVATED SGPT 01/21/2006 02/17/2012 SEBORRHEIC KERATOSES 11/25/2005 02/17/2012 ACTINIC DAMAGE//CHR SOLAR SKIN DAMAGE NOS 200502/17/2012 SURGICAL SCAR & FIBROSIS OF SKIN 11/25/2005 02/17/2012 DERMATOFIBROMAS///BENIGN DARINEL SKIN LEG 11/25/2005 02/17/2012 INTRADERMAL NEVI (MELANOCYTIC)/// DARINEL SKIN TRUNK 11/25/2005 02/17/2012 SKIN TAG PAPILLOMAS///SKIN HYPERTRO/ATROPH NOS 0 11/25/2005 02/17/2012 Abdominal pain, unspecified site 10/25/2005 02/17/2012 Sprain of neck 07/05/2005 02/17/2012 FATTY INFILTRATION LIVER 05/14/2005 022 Other diseases of pharynx, not elsewhere classif ied(478.29) 04/14/2013 Unspecified hemorrhoids without mention of compl ication 04/14/2013 Overview: Hemorrhoids Lumbago 04/15/2014 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 Merino on recommendation of Dr. Angeline nath Last Assessment & Plan: She is on asacol for the past few months, it was started by Dr. Merino on recommendation of Dr. Angeline nath documented as of this encounter (statuses as of 08/22/2021) [facility]04-22-2022 History of Past illness Narrative* Problem Noted Date Resolved Date Dysuria 07/06/2021 07/08/2021 Obesity, Class I, BMI 30-34.9 01/12/2021 GI bleed 01/12/2021 01/14/2021 Acute blood loss anemia 01/12/2021 01/15/20 LLQ pain 09/05/2017 04/09/2021 Overview: Added automatically from request for surgery [id number] 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, estrogen receptor positive 06/03/2017 07/06/2021 Personal history of breast cancer 12/18/2016 04/09/2021 Overview: Added automatically from request for surgery [id number] Permanent atrial fibrillation 12/26/2015 Diverticulitis of large inte angélica without perforation or abscess without bleeding 11/17/2015 04/09/2021 Lymphedema of arm 10/16/2015 04/09/2021 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 female breast 08/04/2015 04/09/2021 Malignant neoplasm of right female breast 201504/09/2021 Overview: The patient had tamoxifen for 5 years and then a gap and resumed after getting cancer for the second time. Last Assessment & Plan: The patient had tamoxifen for 5 years and then a gap and resumed after getting cancer for the second time. Abnormal mammogram of right breast 07/17/2015 04/09/2021 Pain of both shoulder joints 02/21/2015 Other and unspecified noninf ectious gastroenteritis and colitis(558.9) 11/03/2014 11/03/2014 Other specified rheumatoid arthritis, multiple s ites 05/06/2014 07/01/2018 Overview: Dx: 2014 She is on methotrexate and plaquenil Last Assessment & Plan: Dx: 2014 She is on methotrexate and plaquenil Acne rosacea 11/07/2013 04/15/2014 Folliculitis 11/07/2013 04/15/2014 Inflamed seborrheic keratosis 11/07/2013 Xerosis cutis 11/07/2013 04/15/2014 Solar lentigo 11/07/2013 04/15/2014 Crowley angioma 11/07/2013 04/15/2014 Pruritus 11/07/2013 04/15/2014 Backache, unspecified 07/09/2013 04/15/2014 Cutaneous skin tags 12/12/2012 04/14/2013 Intradermal nevus 12/12/2012 04/14/2013 Melanocytic nevi of trunk 12/12/20122013 Dermatofibroma of lower leg 12/12/201203/18 Urinary tract infection 09/02/2012 04/15/19 15 Abdominal pain 09/02/2012 04/15/2014 C. difficile colitis 09/02/2012 04/15/2014 Diverticulitis of colon (wit hout mention of hemorrhage)(562.11) 06/15/2012 04/15/2014 Other Seborrheic Keratoses 05/29/201204/15 Actinic skin damage 05/29/2012 04/15/2014 Epidermal cyst: L upper side nose 06/01/2011 04/15/2014 Xerosis cutis 06/01/2011 04/14/2013 Eczema intertrigo 04/25/2011 04/15/2014 Eczematous dermatitis 04/25/2011 04/14/2013 Intertrigo: Irritant fold area dermatitis 201104/14/2013 Urgency of urination 02/13/2011 04/15/2014 Female stress incontinence 02/13/201104/15 Urge incontinence 02/13/2011 04/15/2014 Recurrent UTI 01/28/2011 04/15/2014 Pain in joint, pelvic region and thigh 0 04/15/2014 Family history of malignant neoplasm of ovary 04/14/2013 Solar Lentigines 05/18/2009 04/14/2013 Crowley Angioma//Capillary Angioma 05/18/2009 04/14/2013 Melanocytic nevus of face 05/18/20092013 Melanocytic nevus of trunk 05/18/200904/14 SVT (supraventricular tachycardia) 03/31/2009 04/09/2021 Last Assessment & Plan: She is on coumadin, metoprolol. SEBORRHEIC KERATOSIS: IRRITATED//INFLAMED 200712/12/2012 Viral warts, unspecified 02/08/2008 013 Benign neoplasm of skin of o ther and unspecified parts of face 02/08/2008 12/12/2012 SEBACEOUS HYPERPLASIA//SEBACEOUS GLAND DIS NOS 1 04/09/2007 12/12/2012 Sebaceous cyst 02/08/2008 12/12/2012 Symptomatic menopausal or female climacteric sta tracy 02/04/2008 04/14/2013 Personal history of malignant neoplasm of breast 02/04/2008 04/15/2014 Other specified disorder of bladder 02/04/2008 02/13/2011 Nocturia 02/04/2008 04/15/2014 Episode Elevated Glucose after Steriod 8 04/15/2014 Diarrhea 10/14/2007 04/14/2013 Abdominal pain, left lower quadrant 10/08/2007 04/14/2013 MALIGN NEOPL BREAST NOS 08/18/2007 04/15/19 15 Postmenopausal atrophic vaginitis 07/28/2007 04/15/2014 HX BREAST CANCER 07/01/2007 04/09/2021 Overview: summer, and 2007. On tamoxifen Last Assessment & Plan: summer, and 2007. On tamoxifen Lump or mass in breast 06/24/2007 4 HX OF TUBULAR ADENOMA 04/27/2007 04/09/2021 NEURALGIA///NERV ROOT/PLEXUS DIS NEC 03/25/2007 04/15/2014 XEROSIS///SEBACEOUS GLAND DIS NEC 03/25/2007 02/17/2012 Seborrheic dermatitis, unspecified 03/25/2007 02/17/2012 Palpitations 01/21/2006 02/17/2012 DEGENERATED DISK DISEASE LUMBOSACRAL-NO MYELOPAT HY 01/21/2006 02/17/2012 ELEVATED SGPT 01/21/2006 02/17/2012 SEBORRHEIC KERATOSES 11/25/2005 02/17/2012 ACTINIC DAMAGE//CHR SOLAR SKIN DAMAGE NOS 200502/17/2012 SURGICAL SCAR & FIBROSIS OF SKIN 11/25/2005 02/17/2012 DERMATOFIBROMAS///BENIGN DARINEL SKIN LEG 11/25/2005 02/17/2012 INTRADERMAL NEVI (MELANOCYTIC)/// DARINEL SKIN TRUNK 11/25/2005 02/17/2012 SKIN TAG PAPILLOMAS///SKIN HYPERTRO/ATROPH NOS 0 11/25/2005 02/17/2012 Abdominal pain, unspecified site 10/25/2005 02/17/2012 Sprain of neck 07/05/2005 02/17/2012 FATTY INFILTRATION LIVER 05/14/2005 022 Other diseases of pharynx, not elsewhere classif ied(478.29) 04/14/2013 Unspecified hemorrhoids without mention of compl ication 04/14/2013 Overview: Hemorrhoids Lumbago 04/15/2014 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 Merino on recommendation of Dr. Angeline nath Last Assessment & Plan: She is on asacol for the past few months, it was started by Dr. Merino on recommendation of Dr. Angeline nath documented as of this encounter (statuses as of 08/26/2021) [facility]04-[facility] History of Past illness Narrative* Problem Noted Date Resolved Date Dysuria 07/06/2021 07/08/2021 Obesity, Class I, BMI 30-34.9 01/12/2021 GI bleed 01/12/2021 01/14/2021 Acute blood loss anemia 01/12/2021 01/15/20 21 LLQ pain 09/05/2017 04/09/2021 Overview: Added automatically from request for surgery [id number] 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, estrogen receptor positive 06/03/2017 07/06/2021 Personal history of breast cancer 12/18/2016 04/09/2021 Overview: Added automatically from request for surgery [id number] Permanent atrial fibrillation 12/26/2015 Diverticulitis of large inte angélica without perforation or abscess without bleeding 11/17/2015 04/09/2021 Lymphedema of arm 10/16/2015 04/09/2021 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 female breast 08/04/2015 04/09/2021 Malignant neoplasm of right female breast 201504/09/2021 Overview: The patient had tamoxifen for 5 years and then a gap and resumed after getting cancer for the second time. Last Assessment & Plan: The patient had tamoxifen for 5 years and then a gap and resumed after getting cancer for the second time. Abnormal mammogram of right breast 07/17/2015 04/09/2021 Pain of both shoulder joints 02/21/2015 Other and unspecified noninf ectious gastroenteritis and colitis(558.9) 11/03/2014 11/03/2014 Other specified rheumatoid arthritis, multiple s ites 05/06/2014 07/01/2018 Overview: Dx: 2014 She is on methotrexate and plaquenil Last Assessment & Plan: Dx: 2014 She is on methotrexate and plaquenil Acne rosacea 11/07/2013 04/15/2014 Folliculitis 11/07/2013 04/15/2014 Inflamed seborrheic keratosis 11/07/2013 Xerosis cutis 11/07/2013 04/15/2014 Solar lentigo 11/07/2013 04/15/2014 Crowley angioma 11/07/2013 04/15/2014 Pruritus 11/07/2013 04/15/2014 Backache, unspecified 07/09/2013 04/15/2014 Cutaneous skin tags 12/12/2012 04/14/2013 Intradermal nevus 12/12/2012 04/14/2013 Melanocytic nevi of trunk 12/12/20122013 Dermatofibroma of lower leg 12/12/201203/18 Urinary tract infection 09/02/2012 04/15/19 15 Abdominal pain 09/02/2012 04/15/2014 C. difficile colitis 09/02/2012 04/15/2014 Diverticulitis of colon (wit hout mention of hemorrhage)(562.11) 06/15/2012 04/15/2014 Other Seborrheic Keratoses 05/29/201204/15 Actinic skin damage 05/29/2012 04/15/2014 Epidermal cyst: L upper side nose 06/01/2011 04/15/2014 Xerosis cutis 06/01/2011 04/14/2013 Eczema intertrigo 04/25/2011 04/15/2014 Eczematous dermatitis 04/25/2011 04/14/2013 Intertrigo: Irritant fold area dermatitis 201104/14/2013 Urgency of urination 02/13/2011 04/15/2014 Female stress incontinence 02/13/201104/15 Urge incontinence 02/13/2011 04/15/2014 Recurrent UTI 01/28/2011 04/15/2014 Pain in joint, pelvic region and thigh 0 04/15/2014 Family history of malignant neoplasm of ovary 04/14/2013 Solar Lentigines 05/18/2009 04/14/2013 Crowley Angioma//Capillary Angioma 05/18/2009 04/14/2013 Melanocytic nevus of face 05/18/20092013 Melanocytic nevus of trunk 05/18/200904/14 SVT (supraventricular tachycardia) 03/31/2009 04/09/2021 Last Assessment & Plan: She is on coumadin, metoprolol. SEBORRHEIC KERATOSIS: IRRITATED//INFLAMED 200712/12/2012 Viral warts, unspecified 02/08/2008 013 Benign neoplasm of skin of o ther and unspecified parts of face 02/08/2008 12/12/2012 SEBACEOUS HYPERPLASIA//SEBACEOUS GLAND DIS NOS 1 04/09/2007 12/12/2012 Sebaceous cyst 02/08/2008 12/12/2012 Symptomatic menopausal or female climacteric sta tracy 02/04/2008 04/14/2013 Personal history of malignant neoplasm of breast 02/04/2008 04/15/2014 Other specified disorder of bladder 02/04/2008 02/13/2011 Nocturia 02/04/2008 04/15/2014 Episode Elevated Glucose after Steriod 8 04/15/2014 Diarrhea 10/14/2007 04/14/2013 Abdominal pain, left lower quadrant 10/08/2007 04/14/2013 MALIGN NEOPL BREAST NOS 08/18/2007 04/15/19 15 Postmenopausal atrophic vaginitis 07/28/2007 04/15/2014 HX BREAST CANCER 07/01/2007 04/09/2021 Overview: summer, and 2007. On tamoxifen Last Assessment & Plan: summer, and 2007. On tamoxifen Lump or mass in breast 06/24/2007 4 HX OF TUBULAR ADENOMA 04/27/2007 04/09/2021 NEURALGIA///NERV ROOT/PLEXUS DIS NEC 03/25/2007 04/15/2014 XEROSIS///SEBACEOUS GLAND DIS NEC 03/25/2007 02/17/2012 Seborrheic dermatitis, unspecified 03/25/2007 02/17/2012 Palpitations 01/21/2006 02/17/2012 DEGENERATED DISK DISEASE LUMBOSACRAL-NO MYELOPAT HY 01/21/2006 02/17/2012 ELEVATED SGPT 01/21/2006 02/17/2012 SEBORRHEIC KERATOSES 11/25/2005 02/17/2012 ACTINIC DAMAGE//CHR SOLAR SKIN DAMAGE NOS 200502/17/2012 SURGICAL SCAR & FIBROSIS OF SKIN 11/25/2005 02/17/2012 DERMATOFIBROMAS///BENIGN DARINEL SKIN LEG 11/25/2005 02/17/2012 INTRADERMAL NEVI (MELANOCYTIC)/// DARINEL SKIN TRUNK 11/25/2005 02/17/2012 SKIN TAG PAPILLOMAS///SKIN HYPERTRO/ATROPH NOS 0 11/25/2005 02/17/2012 Abdominal pain, unspecified site 10/25/2005 02/17/2012 Sprain of neck 07/05/2005 02/17/2012 FATTY INFILTRATION LIVER 05/14/2005 022 Other diseases of pharynx, not elsewhere classif ied(478.29) 04/14/2013 Unspecified hemorrhoids without mention of compl ication 04/14/2013 Overview: Hemorrhoids Lumbago 04/15/2014 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 Merino on recommendation of Dr. Angeline nath Last Assessment & Plan: She is on asacol for the past few months, it was started by Dr. Merino on recommendation of Dr. Angeline nath documented as of this encounter (statuses as of 08/26/2021) [facility]04[facility] History of Past illness Narrative* Problem Noted Date Resolved Date Dysuria 07/06/2021 07/08/2021 Obesity, Class I, BMI 30-34.9 01/12/2021 GI bleed 01/12/2021 01/14/2021 Acute blood loss anemia 01/12/2021 01/15/20 21 LLQ pain 09/05/2017 04/09/2021 Overview: Added automatically from request for surgery [id number] 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, estrogen receptor positive 06/03/2017 07/06/2021 Personal history of breast cancer 12/18/2016 04/09/2021 Overview: Added automatically from request for surgery [id number] Permanent atrial fibrillation 12/26/2015 Diverticulitis of large inte angélica without perforation or abscess without bleeding 11/17/2015 04/09/2021 Lymphedema of arm 10/16/2015 04/09/2021 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 female breast 08/04/2015 04/09/2021 Malignant neoplasm of right female breast 201504/09/2021 Overview: The patient had tamoxifen for 5 years and then a gap and resumed after getting cancer for the second time. Last Assessment & Plan: The patient had tamoxifen for 5 years and then a gap and resumed after getting cancer for the second time. Abnormal mammogram of right breast 07/17/2015 04/09/2021 Pain of both shoulder joints 02/21/2015 Other and unspecified noninf ectious gastroenteritis and colitis(558.9) 11/03/2014 11/03/2014 Other specified rheumatoid arthritis, multiple s ites 05/06/2014 07/01/2018 Overview: Dx: 2014 She is on methotrexate and plaquenil Last Assessment & Plan: Dx: 2014 She is on methotrexate and plaquenil Acne rosacea 11/07/2013 04/15/2014 Folliculitis 11/07/2013 04/15/2014 Inflamed seborrheic keratosis 11/07/2013 Xerosis cutis 11/07/2013 04/15/2014 Solar lentigo 11/07/2013 04/15/2014 Crowley angioma 11/07/2013 04/15/2014 Pruritus 11/07/2013 04/15/2014 Backache, unspecified 07/09/2013 04/15/2014 Cutaneous skin tags 12/12/2012 04/14/2013 Intradermal nevus 12/12/2012 04/14/2013 Melanocytic nevi of trunk 12/12/20122013 Dermatofibroma of lower leg 12/12/201203/18 Urinary tract infection 09/02/2012 04/15/19 15 Abdominal pain 09/02/2012 04/15/2014 C. difficile colitis 09/02/2012 04/15/2014 Diverticulitis of colon (wit hout mention of hemorrhage)(562.11) 06/15/2012 04/15/2014 Other Seborrheic Keratoses 05/29/201204/15 Actinic skin damage 05/29/2012 04/15/2014 Epidermal cyst: L upper side nose 06/01/2011 04/15/2014 Xerosis cutis 06/01/2011 04/14/2013 Eczema intertrigo 04/25/2011 04/15/2014 Eczematous dermatitis 04/25/2011 04/14/2013 Intertrigo: Irritant fold area dermatitis 201104/14/2013 Urgency of urination 02/13/2011 04/15/2014 Female stress incontinence 02/13/201104/15 Urge incontinence 02/13/2011 04/15/2014 Recurrent UTI 01/28/2011 04/15/2014 Pain in joint, pelvic region and thigh 0 04/15/2014 Family history of malignant neoplasm of ovary 04/14/2013 Solar Lentigines 05/18/2009 04/14/2013 Crowley Angioma//Capillary Angioma 05/18/2009 04/14/2013 Melanocytic nevus of face 05/18/20092013 Melanocytic nevus of trunk 05/18/200904/14 SVT (supraventricular tachycardia) 03/31/2009 04/09/2021 Last Assessment & Plan: She is on coumadin, metoprolol. SEBORRHEIC KERATOSIS: IRRITATED//INFLAMED 200712/12/2012 Viral warts, unspecified 02/08/2008 013 Benign neoplasm of skin of o ther and unspecified parts of face 02/08/2008 12/12/2012 SEBACEOUS HYPERPLASIA//SEBACEOUS GLAND DIS NOS 1 04/09/2007 12/12/2012 Sebaceous cyst 02/08/2008 12/12/2012 Symptomatic menopausal or female climacteric sta tracy 02/04/2008 04/14/2013 Personal history of malignant neoplasm of breast 02/04/2008 04/15/2014 Other specified disorder of bladder 02/04/2008 02/13/2011 Nocturia 02/04/2008 04/15/2014 Episode Elevated Glucose after Steriod 8 04/15/2014 Diarrhea 10/14/2007 04/14/2013 Abdominal pain, left lower quadrant 10/08/2007 04/14/2013 MALIGN NEOPL BREAST NOS 08/18/2007 04/15/19 15 Postmenopausal atrophic vaginitis 07/28/2007 04/15/2014 HX BREAST CANCER 07/01/2007 04/09/2021 Overview: Summer of 2015, and 2007. On tamoxifen Last Assessment & Plan: Summer of 2015, and 2007. On tamoxifen Lump or mass in breast 06/24/2007 4 HX OF TUBULAR ADENOMA 04/27/2007 04/09/2021 NEURALGIA///NERV ROOT/PLEXUS DIS NEC 03/25/2007 04/15/2014 XEROSIS///SEBACEOUS GLAND DIS NEC 03/25/2007 02/17/2012 Seborrheic dermatitis, unspecified 03/25/2007 02/17/2012 Palpitations 01/21/2006 02/17/2012 DEGENERATED DISK DISEASE LUMBOSACRAL-NO MYELOPAT HY 01/21/2006 02/17/2012 ELEVATED SGPT 01/21/2006 02/17/2012 SEBORRHEIC KERATOSES 11/25/2005 02/17/2012 ACTINIC DAMAGE//CHR SOLAR SKIN DAMAGE NOS 200502/17/2012 SURGICAL SCAR & FIBROSIS OF SKIN 11/25/2005 02/17/2012 DERMATOFIBROMAS///BENIGN DARINEL SKIN LEG 11/25/2005 02/17/2012 INTRADERMAL NEVI (MELANOCYTIC)/// DARINEL SKIN TRUNK 11/25/2005 02/17/2012 SKIN TAG PAPILLOMAS///SKIN HYPERTRO/ATROPH NOS 0 11/25/2005 02/17/2012 Abdominal pain, unspecified site 10/25/2005 02/17/2012 Sprain of neck 07/05/2005 02/17/2012 FATTY INFILTRATION LIVER 05/14/2005 022 Other diseases of pharynx, not elsewhere classif ied(478.29) 04/14/2013 Unspecified hemorrhoids without mention of compl ication 04/14/2013 Overview: Hemorrhoids Lumbago 04/15/2014 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 Merino on recommendation of Dr. Angeline nath Last Assessment & Plan: She is on asacol for the past few months, it was started by Dr. Merino on recommendation of Dr. Angeline nath documented as of this encounter (statuses as of 08/26/2021) [facility]04-[facility]22 History of Past illness Narrative* Problem Noted Date Resolved Date Dysuria 07/06/2021 07/08/2021 Obesity, Class I, BMI 30-34.9 01/12/2021 GI bleed 01/12/2021 01/14/2021 Acute blood loss anemia 01/12/2021 01/15/20 LLQ pain 09/05/2017 04/09/2021 Overview: Added automatically from request for surgery [id number] 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, estrogen receptor positive 06/03/2017 07/06/2021 Personal history of breast cancer 12/18/2016 04/09/2021 Overview: Added automatically from request for surgery [id number] Permanent atrial fibrillation 12/26/2015 Diverticulitis of large inte angélica without perforation or abscess without bleeding 11/17/2015 04/09/2021 Lymphedema of arm 10/16/2015 04/09/2021 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 female breast 08/04/2015 04/09/2021 Malignant neoplasm of right female breast 201504/09/2021 Overview: The patient had tamoxifen for 5 years and then a gap and resumed after getting cancer for the second time. Last Assessment & Plan: The patient had tamoxifen for 5 years and then a gap and resumed after getting cancer for the second time. Abnormal mammogram of right breast 07/17/2015 04/09/2021 Pain of both shoulder joints 02/21/2015 Other and unspecified noninf ectious gastroenteritis and colitis(558.9) 11/03/2014 11/03/2014 Other specified rheumatoid arthritis, multiple s ites 05/06/2014 07/01/2018 Overview: Dx: 2014 She is on methotrexate and plaquenil Last Assessment & Plan: Dx: 2014 She is on methotrexate and plaquenil Acne rosacea 11/07/2013 04/15/2014 Folliculitis 11/07/2013 04/15/2014 Inflamed seborrheic keratosis 11/07/2013 Xerosis cutis 11/07/2013 04/15/2014 Solar lentigo 11/07/2013 04/15/2014 Crowley angioma 11/07/2013 04/15/2014 Pruritus 11/07/2013 04/15/2014 Backache, unspecified 07/09/2013 04/15/2014 Cutaneous skin tags 12/12/2012 04/14/2013 Intradermal nevus 12/12/2012 04/14/2013 Melanocytic nevi of trunk 12/12/20122013 Dermatofibroma of lower leg 12/12/201203/18 Urinary tract infection 09/02/2012 04/15/19 15 Abdominal pain 09/02/2012 04/15/2014 C. difficile colitis 09/02/2012 04/15/2014 Diverticulitis of colon (wit hout mention of hemorrhage)(562.11) 06/15/2012 04/15/2014 Other Seborrheic Keratoses 05/29/201204/15 Actinic skin damage 05/29/2012 04/15/2014 Epidermal cyst: L upper side nose 06/01/2011 04/15/2014 Xerosis cutis 06/01/2011 04/14/2013 Eczema intertrigo 04/25/2011 04/15/2014 Eczematous dermatitis 04/25/2011 04/14/2013 Intertrigo: Irritant fold area dermatitis 201104/14/2013 Urgency of urination 02/13/2011 04/15/2014 Female stress incontinence 02/13/201104/15 Urge incontinence 02/13/2011 04/15/2014 Recurrent UTI 01/28/2011 04/15/2014 Pain in joint, pelvic region and thigh 10/09/ 0 04/15/2014 Family history of malignant neoplasm of ovary 04/14/2013 Solar Lentigines 05/18/2009 04/14/2013 Crowley Angioma//Capillary Angioma 05/18/2009 04/14/2013 Melanocytic nevus of face 05/18/20092013 Melanocytic nevus of trunk 05/18/200904/14 SVT (supraventricular tachycardia) 03/31/2009 04/09/2021 Last Assessment & Plan: She is on coumadin, metoprolol. SEBORRHEIC KERATOSIS: IRRITATED//INFLAMED 200712/12/2012 Viral warts, unspecified 02/08/2008 013 Benign neoplasm of skin of o ther and unspecified parts of face 02/08/2008 12/12/2012 SEBACEOUS HYPERPLASIA//SEBACEOUS GLAND DIS NOS 1 04/09/2007 12/12/2012 Sebaceous cyst 02/08/2008 12/12/2012 Symptomatic menopausal or female climacteric sta tracy 02/04/2008 04/14/2013 Personal history of malignant neoplasm of breast 02/04/2008 04/15/2014 Other specified disorder of bladder 02/04/2008 02/13/2011 Nocturia 02/04/2008 04/15/2014 Episode Elevated Glucose after Steriod 8 04/15/2014 Diarrhea 10/14/2007 04/14/2013 Abdominal pain, left lower quadrant 10/08/2007 04/14/2013 MALIGN NEOPL BREAST NOS 08/18/2007 04/15/19 15 Postmenopausal atrophic vaginitis 07/28/2007 04/15/2014 HX BREAST CANCER 07/01/2007 04/09/2021 Overview: summer, and 2007. On tamoxifen Last Assessment & Plan: summer, and 2007. On tamoxifen Lump or mass in breast 06/24/2007 4 HX OF TUBULAR ADENOMA 04/27/2007 04/09/2021 NEURALGIA///NERV ROOT/PLEXUS DIS NEC 03/25/2007 04/15/2014 XEROSIS///SEBACEOUS GLAND DIS NEC 03/25/2007 02/17/2012 Seborrheic dermatitis, unspecified 03/25/2007 02/17/2012 Palpitations 01/21/2006 02/17/2012 DEGENERATED DISK DISEASE LUMBOSACRAL-NO MYELOPAT HY 01/21/2006 02/17/2012 ELEVATED SGPT 01/21/2006 02/17/2012 SEBORRHEIC KERATOSES 11/25/2005 02/17/2012 ACTINIC DAMAGE//CHR SOLAR SKIN DAMAGE NOS 200502/17/2012 SURGICAL SCAR & FIBROSIS OF SKIN 11/25/2005 02/17/2012 DERMATOFIBROMAS///BENIGN DARINEL SKIN LEG 11/25/2005 02/17/2012 INTRADERMAL NEVI (MELANOCYTIC)/// DARINEL SKIN TRUNK 11/25/2005 02/17/2012 SKIN TAG PAPILLOMAS///SKIN HYPERTRO/ATROPH NOS 0 11/25/2005 02/17/2012 Abdominal pain, unspecified site 10/25/2005 02/17/2012 Sprain of neck 07/05/2005 02/17/2012 FATTY INFILTRATION LIVER 05/14/2005 022 Other diseases of pharynx, not elsewhere classif ied(478.29) 04/14/2013 Unspecified hemorrhoids without mention of compl ication 04/14/2013 Overview: Hemorrhoids Lumbago 04/15/2014 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 Merino on recommendation of Dr. Angeline nath Last Assessment & Plan: She is on asacol for the past few months, it was started by Dr. Merino on recommendation of Dr. 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, estrogen receptor positive 06/03/2017 07/06/2021 Personal history of breast cancer 12/18/2016 04/09/2021 Overview: Added automatically from request for surgery [id number] Permanent atrial fibrillation 12/26/2015 Diverticulitis of large inte angélica without perforation or abscess without bleeding 11/17/2015 04/09/2021 Lymphedema of arm 10/16/2015 04/09/2021 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 female breast 08/04/2015 04/09/2021 Malignant neoplasm of right female breast 201504/09/2021 Overview: The patient had tamoxifen for 5 years and then a gap and resumed after getting cancer for the second time. Last Assessment & Plan: The patient had tamoxifen for 5 years and then a gap and resumed after getting cancer for the second time. Abnormal mammogram of right breast 07/17/2015 04/09/2021 Pain of both shoulder joints 02/21/2015 Other and unspecified noninf ectious gastroenteritis and colitis(558.9) 11/03/2014 11/03/2014 Other specified rheumatoid arthritis, multiple s ites 05/06/2014 07/01/2018 Overview: Dx: 2014 She is on methotrexate and plaquenil Last Assessment & Plan: Dx: 2014 She is on methotrexate and plaquenil Acne rosacea 11/07/2013 04/15/2014 Folliculitis 11/07/2013 04/15/2014 Inflamed seborrheic keratosis 11/07/2013 Xerosis cutis 11/07/2013 04/15/2014 Solar lentigo 11/07/2013 04/15/2014 Crowley angioma 11/07/2013 04/15/2014 Pruritus 11/07/2013 04/15/2014 Backache, unspecified 07/09/2013 04/15/2014 Cutaneous skin tags 12/12/2012 04/14/2013 Intradermal nevus 12/12/2012 04/14/2013 Melanocytic nevi of trunk 12/12/20122013 Dermatofibroma of lower leg 12/12/201203/18 Urinary tract infection 09/02/2012 04/15/19 15 Abdominal pain 09/02/2012 04/15/2014 C. difficile colitis 09/02/2012 04/15/2014 Diverticulitis of colon (wit hout mention of hemorrhage)(562.11) 06/15/2012 04/15/2014 Other Seborrheic Keratoses 05/29/201204/15 Actinic skin damage 05/29/2012 04/15/2014 Epidermal cyst: L upper side nose 06/01/2011 04/15/2014 Xerosis cutis 06/01/2011 04/14/2013 Eczema intertrigo 04/25/2011 04/15/2014 Eczematous dermatitis 04/25/2011 04/14/2013 Intertrigo: Irritant fold area dermatitis 201104/14/2013 Urgency of urination 02/13/2011 04/15/2014 Female stress incontinence 02/13/201104/15 Urge incontinence 02/13/2011 04/15/2014 Recurrent UTI 01/28/2011 04/15/2014 Pain in joint, pelvic region and thigh 10/09/ 0 04/15/2014 Family history of malignant neoplasm of ovary 04/14/2013 Solar Lentigines 05/18/2009 04/14/2013 Crowley Angioma//Capillary Angioma 05/18/2009 04/14/2013 Melanocytic nevus of face 05/18/20092013 Melanocytic nevus of trunk 05/18/200904/14 SVT (supraventricular tachycardia) 03/31/2009 04/09/2021 Last Assessment & Plan: She is on coumadin, metoprolol. SEBORRHEIC KERATOSIS: IRRITATED//INFLAMED 200712/12/2012 Viral warts, unspecified 02/08/2008 013 Benign neoplasm of skin of o ther and unspecified parts of face 02/08/2008 12/12/2012 SEBACEOUS HYPERPLASIA//SEBACEOUS GLAND DIS NOS 1 04/09/2007 12/12/2012 Sebaceous cyst 02/08/2008 12/12/2012 Symptomatic menopausal or female climacteric sta tracy 02/04/2008 04/14/2013 Personal history of malignant neoplasm of breast 02/04/2008 04/15/2014 Other specified disorder of bladder 02/04/2008 02/13/2011 Nocturia 02/04/2008 04/15/2014 Episode Elevated Glucose after Steriod 8 04/15/2014 Diarrhea 10/14/2007 04/14/2013 Abdominal pain, left lower quadrant 10/08/2007 04/14/2013 MALIGN NEOPL BREAST NOS 08/18/2007 04/15/19 15 Postmenopausal atrophic vaginitis 07/28/2007 04/15/2014 HX BREAST CANCER 07/01/2007 04/09/2021 Overview: summer, and 2007. On tamoxifen Last Assessment & Plan: summer, and 2007. On tamoxifen Lump or mass in breast 06/24/2007 4 HX OF TUBULAR ADENOMA 04/27/2007 04/09/2021 NEURALGIA///NERV ROOT/PLEXUS DIS NEC 03/25/2007 04/15/2014 XEROSIS///SEBACEOUS GLAND DIS NEC 03/25/2007 02/17/2012 Seborrheic dermatitis, unspecified 03/25/2007 02/17/2012 Palpitations 01/21/2006 02/17/2012 DEGENERATED DISK DISEASE LUMBOSACRAL-NO MYELOPAT HY 01/21/2006 02/17/2012 ELEVATED SGPT 01/21/2006 02/17/2012 SEBORRHEIC KERATOSES 11/25/2005 02/17/2012 ACTINIC DAMAGE//CHR SOLAR SKIN DAMAGE NOS 200502/17/2012 SURGICAL SCAR & FIBROSIS OF SKIN 11/25/2005 02/17/2012 DERMATOFIBROMAS///BENIGN DARINEL SKIN LEG 11/25/2005 02/17/2012 INTRADERMAL NEVI (MELANOCYTIC)/// DARINEL SKIN TRUNK 11/25/2005 02/17/2012 SKIN TAG PAPILLOMAS///SKIN HYPERTRO/ATROPH NOS 0 11/25/2005 02/17/2012 Abdominal pain, unspecified site 10/25/2005 02/17/2012 Sprain of neck 07/05/2005 02/17/2012 FATTY INFILTRATION LIVER 05/14/2005 022 Other diseases of pharynx, not elsewhere classif ied(478.29) 04/14/2013 Unspecified hemorrhoids without mention of compl ication 04/14/2013 Overview: Hemorrhoids Lumbago 04/15/2014 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 Merino on recommendation of Dr. Angeline nath Last Assessment & Plan: She is on asacol for the past few months, it was started by Dr. Merino on recommendation of Dr. 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, estrogen receptor positive 06/03/2017 07/06/2021 Personal history of breast cancer 12/18/2016 04/09/2021 Overview: Added automatically from request for surgery [id number] Permanent atrial fibrillation 12/26/2015 Diverticulitis of large inte angélica without perforation or abscess without bleeding 11/17/2015 04/09/2021 Lymphedema of arm 10/16/2015 04/09/2021 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 female breast 08/04/2015 04/09/2021 Malignant neoplasm of right female breast 201504/09/2021 Overview: The patient had tamoxifen for 5 years and then a gap and resumed after getting cancer for the second time. Last Assessment & Plan: The patient had tamoxifen for 5 years and then a gap and resumed after getting cancer for the second time. Abnormal mammogram of right breast 07/17/2015 04/09/2021 Pain of both shoulder joints 02/21/2015 Other and unspecified noninf ectious gastroenteritis and colitis(558.9) 11/03/2014 11/03/2014 Other specified rheumatoid arthritis, multiple s ites 05/06/2014 07/01/2018 Overview: Dx: 2014 She is on methotrexate and plaquenil Last Assessment & Plan: Dx: 2014 She is on methotrexate and plaquenil Acne rosacea 11/07/2013 04/15/2014 Folliculitis 11/07/2013 04/15/2014 Inflamed seborrheic keratosis 11/07/2013 Xerosis cutis 11/07/2013 04/15/2014 Solar lentigo 11/07/2013 04/15/2014 Crowley angioma 11/07/2013 04/15/2014 Pruritus 11/07/2013 04/15/2014 Backache, unspecified 07/09/2013 04/15/2014 Cutaneous skin tags 12/12/2012 04/14/2013 Intradermal nevus 12/12/2012 04/14/2013 Melanocytic nevi of trunk 12/12/20122013 Dermatofibroma of lower leg 12/12/201203/18 Urinary tract infection 09/02/2012 04/15/19 15 Abdominal pain 09/02/2012 04/15/2014 C. difficile colitis 09/02/2012 04/15/2014 Diverticulitis of colon (wit hout mention of hemorrhage)(562.11) 06/15/2012 04/15/2014 Other Seborrheic Keratoses 05/29/201204/15 Actinic skin damage 05/29/2012 04/15/2014 Epidermal cyst: L upper side nose 06/01/2011 04/15/2014 Xerosis cutis 06/01/2011 04/14/2013 Eczema intertrigo 04/25/2011 04/15/2014 Eczematous dermatitis 04/25/2011 04/14/2013 Intertrigo: Irritant fold area dermatitis 201104/14/2013 Urgency of urination 02/13/2011 04/15/2014 Female stress incontinence 02/13/201104/15 Urge incontinence 02/13/2011 04/15/2014 Recurrent UTI 01/28/2011 04/15/2014 Pain in joint, pelvic region and thigh 10/09/ 0 04/15/2014 Family history of malignant neoplasm of ovary 04/14/2013 Solar Lentigines 05/18/2009 04/14/2013 Crowley Angioma//Capillary Angioma 05/18/2009 04/14/2013 Melanocytic nevus of face 05/18/20092013 Melanocytic nevus of trunk 05/18/200904/14 SVT (supraventricular tachycardia) 03/31/2009 04/09/2021 Last Assessment & Plan: She is on coumadin, metoprolol. SEBORRHEIC KERATOSIS: IRRITATED//INFLAMED 200712/12/2012 Viral warts, unspecified 02/08/2008 013 Benign neoplasm of skin of o ther and unspecified parts of face 02/08/2008 12/12/2012 SEBACEOUS HYPERPLASIA//SEBACEOUS GLAND DIS NOS 1 04/09/2007 12/12/2012 Sebaceous cyst 02/08/2008 12/12/2012 Symptomatic menopausal or female climacteric sta tracy 02/04/2008 04/14/2013 Personal history of malignant neoplasm of breast 02/04/2008 04/15/2014 Other specified disorder of bladder 02/04/2008 02/13/2011 Nocturia 02/04/2008 04/15/2014 Episode Elevated Glucose after Steriod 8 04/15/2014 Diarrhea 10/14/2007 04/14/2013 Abdominal pain, left lower quadrant 10/08/2007 04/14/2013 MALIGN NEOPL BREAST NOS 08/18/2007 04/15/19 15 Postmenopausal atrophic vaginitis 07/28/2007 04/15/2014 HX BREAST CANCER 07/01/2007 04/09/2021 Overview: Summer of 2015, and 2007. On tamoxifen Last Assessment & Plan: Summer of 2015, and 2007. On tamoxifen Lump or mass in breast 06/24/2007 4 HX OF TUBULAR ADENOMA 04/27/2007 04/09/2021 NEURALGIA///NERV ROOT/PLEXUS DIS NEC 03/25/2007 04/15/2014 XEROSIS///SEBACEOUS GLAND DIS NEC 03/25/2007 02/17/2012 Seborrheic dermatitis, unspecified 03/25/2007 02/17/2012 Palpitations 01/21/2006 02/17/2012 DEGENERATED DISK DISEASE LUMBOSACRAL-NO MYELOPAT HY 01/21/2006 02/17/2012 ELEVATED SGPT 01/21/2006 02/17/2012 SEBORRHEIC KERATOSES 11/25/2005 02/17/2012 ACTINIC DAMAGE//CHR SOLAR SKIN DAMAGE NOS 200502/17/2012 SURGICAL SCAR & FIBROSIS OF SKIN 11/25/2005 02/17/2012 DERMATOFIBROMAS///BENIGN DARINEL SKIN LEG 11/25/2005 02/17/2012 INTRADERMAL NEVI (MELANOCYTIC)/// DARINEL SKIN TRUNK 11/25/2005 02/17/2012 SKIN TAG PAPILLOMAS///SKIN HYPERTRO/ATROPH NOS 0 11/25/2005 02/17/2012 Abdominal pain, unspecified site 10/25/2005 02/17/2012 Sprain of neck 07/05/2005 02/17/2012 FATTY INFILTRATION LIVER 05/14/2005 022 Other diseases of pharynx, not elsewhere classif ied(478.29) 04/14/2013 Unspecified hemorrhoids without mention of compl ication 04/14/2013 Overview: Hemorrhoids Lumbago 04/15/2014 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 Merino on recommendation of Dr. Angeline nath Last Assessment & Plan: She is on asacol for the past few months, it was started by Dr. Merino on recommendation of Dr. 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, estrogen receptor positive 06/03/2017 07/06/2021 Personal history of breast cancer 12/18/2016 04/09/2021 Overview: Added automatically from request for surgery [id number] Permanent atrial fibrillation 12/26/2015 Diverticulitis of large inte angélica without perforation or abscess without bleeding 11/17/2015 04/09/2021 Lymphedema of arm 10/16/2015 04/09/2021 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 female breast 08/04/2015 04/09/2021 Malignant neoplasm of right female breast 201504/09/2021 Overview: The patient had tamoxifen for 5 years and then a gap and resumed after getting cancer for the second time. Last Assessment & Plan: The patient had tamoxifen for 5 years and then a gap and resumed after getting cancer for the second time. Abnormal mammogram of right breast 07/17/2015 04/09/2021 Pain of both shoulder joints 02/21/2015 Other and unspecified noninf ectious gastroenteritis and colitis(558.9) 11/03/2014 11/03/2014 Other specified rheumatoid arthritis, multiple s ites 05/06/2014 07/01/2018 Overview: Dx: 2014 She is on methotrexate and plaquenil Last Assessment & Plan: Dx: 2014 She is on methotrexate and plaquenil Acne rosacea 11/07/2013 04/15/2014 Folliculitis 11/07/2013 04/15/2014 Inflamed seborrheic keratosis 11/07/2013 Xerosis cutis 11/07/2013 04/15/2014 Solar lentigo 11/07/2013 04/15/2014 Crowley angioma 11/07/2013 04/15/2014 Pruritus 11/07/2013 04/15/2014 Backache, unspecified 07/09/2013 04/15/2014 Cutaneous skin tags 12/12/2012 04/14/2013 Intradermal nevus 12/12/2012 04/14/2013 Melanocytic nevi of trunk 12/12/20122013 Dermatofibroma of lower leg 12/12/201203/18 Urinary tract infection 09/02/2012 04/15/19 15 Abdominal pain 09/02/2012 04/15/2014 C. difficile colitis 09/02/2012 04/15/2014 Diverticulitis of colon (wit hout mention of hemorrhage)(562.11) 06/15/2012 04/15/2014 Other Seborrheic Keratoses 05/29/201204/15 Actinic skin damage 05/29/2012 04/15/2014 Epidermal cyst: L upper side nose 06/01/2011 04/15/2014 Xerosis cutis 06/01/2011 04/14/2013 Eczema intertrigo 04/25/2011 04/15/2014 Eczematous dermatitis 04/25/2011 04/14/2013 Intertrigo: Irritant fold area dermatitis 201104/14/2013 Urgency of urination 02/13/2011 04/15/2014 Female stress incontinence 02/13/201104/15 Urge incontinence 02/13/2011 04/15/2014 Recurrent UTI 01/28/2011 04/15/2014 Pain in joint, pelvic region and thigh 10/09/ 0 04/15/2014 Family history of malignant neoplasm of ovary 04/14/2013 Solar Lentigines 05/18/2009 04/14/2013 Crowley Angioma//Capillary Angioma 05/18/2009 04/14/2013 Melanocytic nevus of face 05/18/20092013 Melanocytic nevus of trunk 05/18/200904/14 SVT (supraventricular tachycardia) 03/31/2009 04/09/2021 Last Assessment & Plan: She is on coumadin, metoprolol. SEBORRHEIC KERATOSIS: IRRITATED//INFLAMED 200712/12/2012 Viral warts, unspecified 02/08/2008 013 Benign neoplasm of skin of o ther and unspecified parts of face 02/08/2008 12/12/2012 SEBACEOUS HYPERPLASIA//SEBACEOUS GLAND DIS NOS 1 04/09/2007 12/12/2012 Sebaceous cyst 02/08/2008 12/12/2012 Symptomatic menopausal or female climacteric sta tracy 02/04/2008 04/14/2013 Personal history of malignant neoplasm of breast 02/04/2008 04/15/2014 Other specified disorder of bladder 02/04/2008 02/13/2011 Nocturia 02/04/2008 04/15/2014 Episode Elevated Glucose after Steriod 8 04/15/2014 Diarrhea 10/14/2007 04/14/2013 Abdominal pain, left lower quadrant 10/08/2007 04/14/2013 MALIGN NEOPL BREAST NOS 08/18/2007 04/15/19 15 Postmenopausal atrophic vaginitis 07/28/2007 04/15/2014 HX BREAST CANCER 07/01/2007 04/09/2021 Overview: Summer of 2015, and 2007. On tamoxifen Last Assessment & Plan: Summer of 2015, and 2007. On tamoxifen Lump or mass in breast 06/24/2007 4 HX OF TUBULAR ADENOMA 04/27/2007 04/09/2021 NEURALGIA///NERV ROOT/PLEXUS DIS NEC 03/25/2007 04/15/2014 XEROSIS///SEBACEOUS GLAND DIS NEC 03/25/2007 02/17/2012 Seborrheic dermatitis, unspecified 03/25/2007 02/17/2012 Palpitations 01/21/2006 02/17/2012 DEGENERATED DISK DISEASE LUMBOSACRAL-NO MYELOPAT HY 01/21/2006 02/17/2012 ELEVATED SGPT 01/21/2006 02/17/2012 SEBORRHEIC KERATOSES 11/25/2005 02/17/2012 ACTINIC DAMAGE//CHR SOLAR SKIN DAMAGE NOS 200502/17/2012 SURGICAL SCAR & FIBROSIS OF SKIN 11/25/2005 02/17/2012 DERMATOFIBROMAS///BENIGN DARINEL SKIN LEG 11/25/2005 02/17/2012 INTRADERMAL NEVI (MELANOCYTIC)/// DARINEL SKIN TRUNK 11/25/2005 02/17/2012 SKIN TAG PAPILLOMAS///SKIN HYPERTRO/ATROPH NOS 0 11/25/2005 02/17/2012 Abdominal pain, unspecified site 10/25/2005 02/17/2012 Sprain of neck 07/05/2005 02/17/2012 FATTY INFILTRATION LIVER 05/14/2005 022 Other diseases of pharynx, not elsewhere classif ied(478.29) 04/14/2013 Unspecified hemorrhoids without mention of compl ication 04/14/2013 Overview: Hemorrhoids Lumbago 04/15/2014 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 Merino on recommendation of Dr. Angeline nath Last Assessment & Plan: She is on asacol for the past few months, it was started by Dr. Merino on recommendation of Dr. 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, estrogen receptor positive 06/03/2017 07/06/2021 Personal history of breast cancer 12/18/2016 04/09/2021 Overview: Added automatically from request for surgery [id number] Permanent atrial fibrillation 12/26/2015 Diverticulitis of large inte angélica without perforation or abscess without bleeding 11/17/2015 04/09/2021 Lymphedema of arm 10/16/2015 04/09/2021 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 female breast 08/04/2015 04/09/2021 Malignant neoplasm of right female breast 201504/09/2021 Overview: The patient had tamoxifen for 5 years and then a gap and resumed after getting cancer for the second time. Last Assessment & Plan: The patient had tamoxifen for 5 years and then a gap and resumed after getting cancer for the second time. Abnormal mammogram of right breast 07/17/2015 04/09/2021 Pain of both shoulder joints 02/21/2015 Other and unspecified noninf ectious gastroenteritis and colitis(558.9) 11/03/2014 11/03/2014 Other specified rheumatoid arthritis, multiple s ites 05/06/2014 07/01/2018 Overview: Dx: 2014 She is on methotrexate and plaquenil Last Assessment & Plan: Dx: 2014 She is on methotrexate and plaquenil Acne rosacea 11/07/2013 04/15/2014 Folliculitis 11/07/2013 04/15/2014 Inflamed seborrheic keratosis 11/07/2013 Xerosis cutis 11/07/2013 04/15/2014 Solar lentigo 11/07/2013 04/15/2014 Crowley angioma 11/07/2013 04/15/2014 Pruritus 11/07/2013 04/15/2014 Backache, unspecified 07/09/2013 04/15/2014 Cutaneous skin tags 12/12/2012 04/14/2013 Intradermal nevus 12/12/2012 04/14/2013 Melanocytic nevi of trunk 12/12/20122013 Dermatofibroma of lower leg 12/12/201203/18 Urinary tract infection 09/02/2012 04/15/19 15 Abdominal pain 09/02/2012 04/15/2014 C. difficile colitis 09/02/2012 04/15/2014 Diverticulitis of colon (wit hout mention of hemorrhage)(562.11) 06/15/2012 04/15/2014 Other Seborrheic Keratoses 05/29/201204/15 Actinic skin damage 05/29/2012 04/15/2014 Epidermal cyst: L upper side nose 06/01/2011 04/15/2014 Xerosis cutis 06/01/2011 04/14/2013 Eczema intertrigo 04/25/2011 04/15/2014 Eczematous dermatitis 04/25/2011 04/14/2013 Intertrigo: Irritant fold area dermatitis 201104/14/2013 Urgency of urination 02/13/2011 04/15/2014 Female stress incontinence 02/13/201104/15 Urge incontinence 02/13/2011 04/15/2014 Recurrent UTI 01/28/2011 04/15/2014 Pain in joint, pelvic region and thigh 10/09/201 0 04/15/2014 Family history of malignant neoplasm of ovary 04/14/2013 Solar Lentigines 05/18/2009 04/14/2013 Crowley Angioma//Capillary Angioma 05/18/2009 04/14/2013 Melanocytic nevus of face 05/18/20092013 Melanocytic nevus of trunk 05/18/200904/14 SVT (supraventricular tachycardia) 03/31/2009 04/09/2021 Last Assessment & Plan: She is on coumadin, metoprolol. SEBORRHEIC KERATOSIS: IRRITATED//INFLAMED 200712/12/2012 Viral warts, unspecified 02/08/2008 013 Benign neoplasm of skin of o ther and unspecified parts of face 02/08/2008 12/12/2012 SEBACEOUS HYPERPLASIA//SEBACEOUS GLAND DIS NOS 1 04/09/2007 12/12/2012 Sebaceous cyst 02/08/2008 12/12/2012 Symptomatic menopausal or female climacteric sta tracy 02/04/2008 04/14/2013 Personal history of malignant neoplasm of breast 02/04/2008 04/15/2014 Other specified disorder of bladder 02/04/2008 02/13/2011 Nocturia 02/04/2008 04/15/2014 Episode Elevated Glucose after Steriod 8 04/15/2014 Diarrhea 10/14/2007 04/14/2013 Abdominal pain, left lower quadrant 10/08/2007 04/14/2013 MALIGN NEOPL BREAST NOS 08/18/2007 04/15/19 15 Postmenopausal atrophic vaginitis 07/28/2007 04/15/2014 HX BREAST CANCER 07/01/2007 04/09/2021 Overview: Summer of 2015, and 2007. On tamoxifen Last Assessment & Plan: summer, and 2007. On tamoxifen Lump or mass in breast 06/24/2007 4 HX OF TUBULAR ADENOMA 04/27/2007 04/09/2021 NEURALGIA///NERV ROOT/PLEXUS DIS NEC 03/25/2007 04/15/2014 XEROSIS///SEBACEOUS GLAND DIS NEC 03/25/2007 02/17/2012 Seborrheic dermatitis, unspecified 03/25/2007 02/17/2012 Palpitations 01/21/2006 02/17/2012 DEGENERATED DISK DISEASE LUMBOSACRAL-NO MYELOPAT HY 01/21/2006 02/17/2012 ELEVATED SGPT 01/21/2006 02/17/2012 SEBORRHEIC KERATOSES 11/25/2005 02/17/2012 ACTINIC DAMAGE//CHR SOLAR SKIN DAMAGE NOS 200502/17/2012 SURGICAL SCAR & FIBROSIS OF SKIN 11/25/2005 02/17/2012 DERMATOFIBROMAS///BENIGN DARINEL SKIN LEG 11/25/2005 02/17/2012 INTRADERMAL NEVI (MELANOCYTIC)/// DARINEL SKIN TRUNK 11/25/2005 02/17/2012 SKIN TAG PAPILLOMAS///SKIN HYPERTRO/ATROPH NOS 0 11/25/2005 02/17/2012 Abdominal pain, unspecified site 10/25/2005 02/17/2012 Sprain of neck 07/05/2005 02/17/2012 FATTY INFILTRATION LIVER 05/14/2005 022 Other diseases of pharynx, not elsewhere classif ied(478.29) 04/14/2013 Unspecified hemorrhoids without mention of compl ication 04/14/2013 Overview: Hemorrhoids Lumbago 04/15/2014 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 Merino on recommendation of Dr. Angeline nath Last Assessment & Plan: She is on asacol for the past few months, it was started by Dr. Merino on recommendation of Dr. 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, estrogen receptor positive 06/03/2017 07/06/2021 Personal history of breast cancer 12/18/2016 04/09/2021 Overview: Added automatically from request for surgery [id number] Permanent atrial fibrillation 12/26/2015 Diverticulitis of large inte angélica without perforation or abscess without bleeding 11/17/2015 04/09/2021 Lymphedema of arm 10/16/2015 04/09/2021 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 female breast 08/04/2015 04/09/2021 Malignant neoplasm of right female breast 201504/09/2021 Overview: The patient had tamoxifen for 5 years and then a gap and resumed after getting cancer for the second time. Last Assessment & Plan: The patient had tamoxifen for 5 years and then a gap and resumed after getting cancer for the second time. Abnormal mammogram of right breast 07/17/2015 04/09/2021 Pain of both shoulder joints 02/21/2015 Other and unspecified noninf ectious gastroenteritis and colitis(558.9) 11/03/2014 11/03/2014 Other specified rheumatoid arthritis, multiple s ites 05/06/2014 07/01/2018 Overview: Dx: 2014 She is on methotrexate and plaquenil Last Assessment & Plan: Dx: 2014 She is on methotrexate and plaquenil Acne rosacea 11/07/2013 04/15/2014 Folliculitis 11/07/2013 04/15/2014 Inflamed seborrheic keratosis 11/07/2013 Xerosis cutis 11/07/2013 04/15/2014 Solar lentigo 11/07/2013 04/15/2014 [place] angioma 11/07/2013 04/15/2014 Pruritus 11/07/2013 04/15/2014 Backache, unspecified 07/09/2013 04/15/2014 Cutaneous skin tags 12/12/2012 04/14/2013 Intradermal nevus 12/12/2012 04/14/2013 Melanocytic nevi of trunk 12/12/20122013 Dermatofibroma of lower leg 12/12/201203/18 Urinary tract infection 09/02/2012 04/15/19 15 Abdominal pain 09/02/2012 04/15/2014 C. difficile colitis 09/02/2012 04/15/2014 Diverticulitis of colon (wit hout mention of hemorrhage)(562.11) 06/15/2012 04/15/2014 Other Seborrheic Keratoses 05/29/201204/15 Actinic skin damage 05/29/2012 04/15/2014 Epidermal cyst: L upper side nose 06/01/2011 04/15/2014 Xerosis cutis 06/01/2011 04/14/2013 Eczema intertrigo 04/25/2011 04/15/2014 Eczematous dermatitis 04/25/2011 04/14/2013 Intertrigo: Irritant fold area dermatitis 201104/14/2013 Urgency of urination 02/13/2011 04/15/2014 Female stress incontinence 02/13/201104/15 Urge incontinence 02/13/2011 04/15/2014 Recurrent UTI 01/28/2011 04/15/2014 Pain in joint, pelvic region and thigh 0 04/15/2014 Family history of malignant neoplasm of ovary 04/14/2013 Solar Lentigines 05/18/2009 04/14/2013 Crowley Angioma//Capillary Angioma 05/18/2009 04/14/2013 Melanocytic nevus of face 05/18/20092013 Melanocytic nevus of trunk 05/18/200904/14 SVT (supraventricular tachycardia) 03/31/2009 04/09/2021 Last Assessment & Plan: She is on coumadin, metoprolol. SEBORRHEIC KERATOSIS: IRRITATED//INFLAMED 200712/12/2012 Viral warts, unspecified 02/08/2008 013 Benign neoplasm of skin of o ther and unspecified parts of face 02/08/2008 12/12/2012 SEBACEOUS HYPERPLASIA//SEBACEOUS GLAND DIS NOS 1 04/09/2007 12/12/2012 Sebaceous cyst 02/08/2008 12/12/2012 Symptomatic menopausal or female climacteric sta tracy 02/04/2008 04/14/2013 Personal history of malignant neoplasm of breast 02/04/2008 04/15/2014 Other specified disorder of bladder 02/04/2008 02/13/2011 Nocturia 02/04/2008 04/15/2014 Episode Elevated Glucose after Steriod 8 04/15/2014 Diarrhea 10/14/2007 04/14/2013 Abdominal pain, left lower quadrant 10/08/2007 04/14/2013 MALIGN NEOPL BREAST NOS 08/18/2007 04/15/19 15 Postmenopausal atrophic vaginitis 07/28/2007 04/15/2014 HX BREAST CANCER 07/01/2007 04/09/2021 Overview: summer, and 2007. On tamoxifen Last Assessment & Plan: summer, and 2007. On tamoxifen Lump or mass in breast 06/24/2007 4 HX OF TUBULAR ADENOMA 04/27/2007 04/09/2021 NEURALGIA///NERV ROOT/PLEXUS DIS NEC 03/25/2007 04/15/2014 XEROSIS///SEBACEOUS GLAND DIS NEC 03/25/2007 02/17/2012 Seborrheic dermatitis, unspecified 03/25/2007 02/17/2012 Palpitations 01/21/2006 02/17/2012 DEGENERATED DISK DISEASE LUMBOSACRAL-NO MYELOPAT HY 01/21/2006 02/17/2012 ELEVATED SGPT 01/21/2006 02/17/2012 SEBORRHEIC KERATOSES 11/25/2005 02/17/2012 ACTINIC DAMAGE//CHR SOLAR SKIN DAMAGE NOS 200502/17/2012 SURGICAL SCAR & FIBROSIS OF SKIN 11/25/2005 02/17/2012 DERMATOFIBROMAS///BENIGN DARINEL SKIN LEG 11/25/2005 02/17/2012 INTRADERMAL NEVI (MELANOCYTIC)/// DARINEL SKIN TRUNK 11/25/2005 02/17/2012 SKIN TAG PAPILLOMAS///SKIN HYPERTRO/ATROPH NOS 0 11/25/2005 02/17/2012 Abdominal pain, unspecified site 10/25/2005 02/17/2012 Sprain of neck 07/05/2005 02/17/2012 FATTY INFILTRATION LIVER 05/14/2005 022 Other diseases of pharynx, not elsewhere classif ied(478.29) 04/14/2013 Unspecified hemorrhoids without mention of compl ication 04/14/2013 Overview: Hemorrhoids Lumbago 04/15/2014 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 Merino on recommendation of Dr. Angeline nath Last Assessment & Plan: She is on asacol for the past few months, it was started by Dr. Merino on recommendation of Dr. 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, estrogen receptor positive 06/03/2017 07/06/2021 Personal history of breast cancer 12/18/2016 04/09/2021 Overview: Added automatically from request for surgery [id number] Permanent atrial fibrillation 12/26/2015 Diverticulitis of large inte angélica without perforation or abscess without bleeding 11/17/2015 04/09/2021 Lymphedema of arm 10/16/2015 04/09/2021 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 female breast 08/04/2015 04/09/2021 Malignant neoplasm of right female breast 201504/09/2021 Overview: The patient had tamoxifen for 5 years and then a gap and resumed after getting cancer for the second time. Last Assessment & Plan: The patient had tamoxifen for 5 years and then a gap and resumed after getting cancer for the second time. Abnormal mammogram of right breast 07/17/2015 04/09/2021 Pain of both shoulder joints 02/21/2015 Other and unspecified noninf ectious gastroenteritis and colitis(558.9) 11/03/2014 11/03/2014 Other specified rheumatoid arthritis, multiple s ites 05/06/2014 07/01/2018 Overview: Dx: 2014 She is on methotrexate and plaquenil Last Assessment & Plan: Dx: 2014 She is on methotrexate and plaquenil Acne rosacea 11/07/2013 04/15/2014 Folliculitis 11/07/2013 04/15/2014 Inflamed seborrheic keratosis 11/07/2013 Xerosis cutis 11/07/2013 04/15/2014 Solar lentigo 11/07/2013 04/15/2014 Crowley angioma 11/07/2013 04/15/2014 Pruritus 11/07/2013 04/15/2014 Backache, unspecified 07/09/2013 04/15/2014 Cutaneous skin tags 12/12/2012 04/14/2013 Intradermal nevus 12/12/2012 04/14/2013 Melanocytic nevi of trunk 12/12/20122013 Dermatofibroma of lower leg 12/12/201203/18 Urinary tract infection 09/02/2012 04/15/19 15 Abdominal pain 09/02/2012 04/15/2014 C. difficile colitis 09/02/2012 04/15/2014 Diverticulitis of colon (wit hout mention of hemorrhage)(562.11) 06/15/2012 04/15/2014 Other Seborrheic Keratoses 05/29/201204/15 Actinic skin damage 05/29/2012 04/15/2014 Epidermal cyst: L upper side nose 06/01/2011 04/15/2014 Xerosis cutis 06/01/2011 04/14/2013 Eczema intertrigo 04/25/2011 04/15/2014 Eczematous dermatitis 04/25/2011 04/14/2013 Intertrigo: Irritant fold area dermatitis 201104/14/2013 Urgency of urination 02/13/2011 04/15/2014 Female stress incontinence 02/13/201104/15 Urge incontinence 02/13/2011 04/15/2014 Recurrent UTI 01/28/2011 04/15/2014 Pain in joint, pelvic region and thigh 0 04/15/2014 Family history of malignant neoplasm of ovary 04/14/2013 Solar Lentigines 05/18/2009 04/14/2013 Crowley Angioma//Capillary Angioma 05/18/2009 04/14/2013 Melanocytic nevus of face 05/18/20092013 Melanocytic nevus of trunk 05/18/200904/14 SVT (supraventricular tachycardia) 03/31/2009 04/09/2021 Last Assessment & Plan: She is on coumadin, metoprolol. SEBORRHEIC KERATOSIS: IRRITATED//INFLAMED 200712/12/2012 Viral warts, unspecified 02/08/2008 013 Benign neoplasm of skin of o ther and unspecified parts of face 02/08/2008 12/12/2012 SEBACEOUS HYPERPLASIA//SEBACEOUS GLAND DIS NOS 1 04/09/2007 12/12/2012 Sebaceous cyst 02/08/2008 12/12/2012 Symptomatic menopausal or female climacteric sta tracy 02/04/2008 04/14/2013 Personal history of malignant neoplasm of breast 02/04/2008 04/15/2014 Other specified disorder of bladder 02/04/2008 02/13/2011 Nocturia 02/04/2008 04/15/2014 Episode Elevated Glucose after Steriod 8 04/15/2014 Diarrhea 10/14/2007 04/14/2013 Abdominal pain, left lower quadrant 10/08/2007 04/14/2013 MALIGN NEOPL BREAST NOS 08/18/2007 04/15/19 15 Postmenopausal atrophic vaginitis 07/28/2007 04/15/2014 HX BREAST CANCER 07/01/2007 04/09/2021 Overview: summer, and 2007. On tamoxifen Last Assessment & Plan: summer, and 2007. On tamoxifen Lump or mass in breast 06/24/2007 01/29/201 4 HX OF TUBULAR ADENOMA 04/27/2007 04/09/2021 NEURALGIA///NERV ROOT/PLEXUS DIS NEC 03/25/2007 04/15/2014 XEROSIS///SEBACEOUS GLAND DIS NEC 03/25/2007 02/17/2012 Seborrheic dermatitis, unspecified 03/25/2007 02/17/2012 Palpitations 01/21/2006 02/17/2012 DEGENERATED DISK DISEASE LUMBOSACRAL-NO MYELOPAT HY 01/21/2006 02/17/2012 ELEVATED SGPT 01/21/2006 02/17/2012 SEBORRHEIC KERATOSES 11/25/2005 02/17/2012 ACTINIC DAMAGE//CHR SOLAR SKIN DAMAGE NOS 200502/17/2012 SURGICAL SCAR & FIBROSIS OF SKIN 11/25/2005 02/17/2012 DERMATOFIBROMAS///BENIGN DARINEL SKIN LEG 11/25/2005 02/17/2012 INTRADERMAL NEVI (MELANOCYTIC)/// DARINEL SKIN TRUNK 11/25/2005 02/17/2012 SKIN TAG PAPILLOMAS///SKIN HYPERTRO/ATROPH NOS 0 11/25/2005 02/17/2012 Abdominal pain, unspecified site 10/25/2005 02/17/2012 Sprain of neck 07/05/2005 02/17/2012 FATTY INFILTRATION LIVER 05/14/2005 022 Other diseases of pharynx, not elsewhere classif ied(478.29) 04/14/2013 Unspecified hemorrhoids without mention of compl ication 04/14/2013 Overview: Hemorrhoids Lumbago 04/15/2014 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 Merino on recommendation of Dr. Angeline nath Last Assessment & Plan: She is on asacol for the past few months, it was started by Dr. Merino on recommendation of Dr. 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, estrogen receptor positive 06/03/2017 07/06/2021 Personal history of breast cancer 12/18/2016 04/09/2021 Overview: Added automatically from request for surgery [id number] Permanent atrial fibrillation 12/26/2015 Diverticulitis of large inte angélica without perforation or abscess without bleeding 11/17/2015 04/09/2021 Lymphedema of arm 10/16/2015 04/09/2021 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 female breast 08/04/2015 04/09/2021 Malignant neoplasm of right female breast 201504/09/2021 Overview: The patient had tamoxifen for 5 years and then a gap and resumed after getting cancer for the second time. Last Assessment & Plan: The patient had tamoxifen for 5 years and then a gap and resumed after getting cancer for the second time. Abnormal mammogram of right breast 07/17/2015 04/09/2021 Pain of both shoulder joints 02/21/2015 Other and unspecified noninf ectious gastroenteritis and colitis(558.9) 11/03/2014 11/03/2014 Other specified rheumatoid arthritis, multiple s ites 05/06/2014 07/01/2018 Overview: Dx: 2014 She is on methotrexate and plaquenil Last Assessment & Plan: Dx: 2014 She is on methotrexate and plaquenil Acne rosacea 11/07/2013 04/15/2014 Folliculitis 11/07/2013 04/15/2014 Inflamed seborrheic keratosis 11/07/2013 Xerosis cutis 11/07/2013 04/15/2014 Solar lentigo 11/07/2013 04/15/2014 Crowley angioma 11/07/2013 04/15/2014 Pruritus 11/07/2013 04/15/2014 Backache, unspecified 07/09/2013 04/15/2014 Cutaneous skin tags 12/12/2012 04/14/2013 Intradermal nevus 12/12/2012 04/14/2013 Melanocytic nevi of trunk 12/12/20122013 Dermatofibroma of lower leg 12/12/201203/18 Urinary tract infection 09/02/2012 04/15/19 15 Abdominal pain 09/02/2012 04/15/2014 C. difficile colitis 09/02/2012 04/15/2014 Diverticulitis of colon (wit hout mention of hemorrhage)(562.11) 06/15/2012 04/15/2014 Other Seborrheic Keratoses 05/29/201204/15 Actinic skin damage 05/29/2012 04/15/2014 Epidermal cyst: L upper side nose 06/01/2011 04/15/2014 Xerosis cutis 06/01/2011 04/14/2013 Eczema intertrigo 04/25/2011 04/15/2014 Eczematous dermatitis 04/25/2011 04/14/2013 Intertrigo: Irritant fold area dermatitis 201104/14/2013 Urgency of urination 02/13/2011 04/15/2014 Female stress incontinence 02/13/201104/15 Urge incontinence 02/13/2011 04/15/2014 Recurrent UTI 01/28/2011 04/15/2014 Pain in joint, pelvic region and thigh 0 04/15/2014 Family history of malignant neoplasm of ovary 04/14/2013 Solar Lentigines 05/18/2009 04/14/2013 Crowley Angioma//Capillary Angioma 05/18/2009 04/14/2013 Melanocytic nevus of face 05/18/20092013 Melanocytic nevus of trunk 05/18/200904/14 SVT (supraventricular tachycardia) 03/31/2009 04/09/2021 Last Assessment & Plan: She is on coumadin, metoprolol. SEBORRHEIC KERATOSIS: IRRITATED//INFLAMED 200712/12/2012 Viral warts, unspecified 02/08/2008 013 Benign neoplasm of skin of o ther and unspecified parts of face 02/08/2008 12/12/2012 SEBACEOUS HYPERPLASIA//SEBACEOUS GLAND DIS NOS 1 04/09/2007 12/12/2012 Sebaceous cyst 02/08/2008 12/12/2012 Symptomatic menopausal or female climacteric sta tracy 02/04/2008 04/14/2013 Personal history of malignant neoplasm of breast 02/04/2008 04/15/2014 Other specified disorder of bladder 02/04/2008 02/13/2011 Nocturia 02/04/2008 04/15/2014 Episode Elevated Glucose after Steriod 8 04/15/2014 Diarrhea 10/14/2007 04/14/2013 Abdominal pain, left lower quadrant 10/08/2007 04/14/2013 MALIGN NEOPL BREAST NOS 08/18/2007 04/15/19 15 Postmenopausal atrophic vaginitis 07/28/2007 04/15/2014 HX BREAST CANCER 07/01/2007 04/09/2021 Overview: Summer of 2015, and 2007. On tamoxifen Last Assessment & Plan: summer, and 2007. On tamoxifen Lump or mass in breast 06/24/2007 4 HX OF TUBULAR ADENOMA 04/27/2007 04/09/2021 NEURALGIA///NERV ROOT/PLEXUS DIS NEC 03/25/2007 04/15/2014 XEROSIS///SEBACEOUS GLAND DIS NEC 03/25/2007 02/17/2012 Seborrheic dermatitis, unspecified 03/25/2007 02/17/2012 Palpitations 01/21/2006 02/17/2012 DEGENERATED DISK DISEASE LUMBOSACRAL-NO MYELOPAT HY 01/21/2006 02/17/2012 ELEVATED SGPT 01/21/2006 02/17/2012 SEBORRHEIC KERATOSES 11/25/2005 02/17/2012 ACTINIC DAMAGE//CHR SOLAR SKIN DAMAGE NOS 200502/17/2012 SURGICAL SCAR & FIBROSIS OF SKIN 11/25/2005 02/17/2012 DERMATOFIBROMAS///BENIGN DARINEL SKIN LEG 11/25/2005 02/17/2012 INTRADERMAL NEVI (MELANOCYTIC)/// DARINEL SKIN TRUNK 11/25/2005 02/17/2012 SKIN TAG PAPILLOMAS///SKIN HYPERTRO/ATROPH NOS 0 11/25/2005 02/17/2012 Abdominal pain, unspecified site 10/25/2005 02/17/2012 Sprain of neck 07/05/2005 02/17/2012 FATTY INFILTRATION LIVER 05/14/2005 022 Other diseases of pharynx, not elsewhere classif ied(478.29) 04/14/2013 Unspecified hemorrhoids without mention of compl ication 04/14/2013 Overview: Hemorrhoids Lumbago 04/15/2014 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 Merino on recommendation of Dr. Angeline nath Last Assessment & Plan: She is on asacol for the past few months, it was started by Dr. Merino on recommendation of Dr. 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, estrogen receptor positive 06/03/2017 07/06/2021 Personal history of breast cancer 12/18/2016 04/09/2021 Overview: Added automatically from request for surgery [id number] Permanent atrial fibrillation 12/26/2015 Diverticulitis of large inte angélica without perforation or abscess without bleeding 11/17/2015 04/09/2021 Lymphedema of arm 10/16/2015 04/09/2021 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 female breast 08/04/2015 04/09/2021 Malignant neoplasm of right female breast 201504/09/2021 Overview: The patient had tamoxifen for 5 years and then a gap and resumed after getting cancer for the second time. Last Assessment & Plan: The patient had tamoxifen for 5 years and then a gap and resumed after getting cancer for the second time. Abnormal mammogram of right breast 07/17/2015 04/09/2021 Pain of both shoulder joints 02/21/2015 Other and unspecified noninf ectious gastroenteritis and colitis(558.9) 11/03/2014 11/03/2014 Other specified rheumatoid arthritis, multiple s ites 05/06/2014 07/01/2018 Overview: Dx: 2014 She is on methotrexate and plaquenil Last Assessment & Plan: Dx: 2014 She is on methotrexate and plaquenil Acne rosacea 11/07/2013 04/15/2014 Folliculitis 11/07/2013 04/15/2014 Inflamed seborrheic keratosis 11/07/2013 Xerosis cutis 11/07/2013 04/15/2014 Solar lentigo 11/07/2013 04/15/2014 Crowley angioma 11/07/2013 04/15/2014 Pruritus 11/07/2013 04/15/2014 Backache, unspecified 07/09/2013 04/15/2014 Cutaneous skin tags 12/12/2012 04/14/2013 Intradermal nevus 12/12/2012 04/14/2013 Melanocytic nevi of trunk 12/12/20122013 Dermatofibroma of lower leg 12/12/201203/18 Urinary tract infection 09/02/2012 04/15/19 15 Abdominal pain 09/02/2012 04/15/2014 C. difficile colitis 09/02/2012 04/15/2014 Diverticulitis of colon (wit hout mention of hemorrhage)(562.11) 06/15/2012 04/15/2014 Other Seborrheic Keratoses 05/29/201204/15 Actinic skin damage 05/29/2012 04/15/2014 Epidermal cyst: L upper side nose 06/01/2011 04/15/2014 Xerosis cutis 06/01/2011 04/14/2013 Eczema intertrigo 04/25/2011 04/15/2014 Eczematous dermatitis 04/25/2011 04/14/2013 Intertrigo: Irritant fold area dermatitis 201104/14/2013 Urgency of urination 02/13/2011 04/15/2014 Female stress incontinence 02/13/201104/15 Urge incontinence 02/13/2011 04/15/2014 Recurrent UTI 01/28/2011 04/15/2014 Pain in joint, pelvic region and thigh 0 04/15/2014 Family history of malignant neoplasm of ovary 04/14/2013 Solar Lentigines 05/18/2009 04/14/2013 Crowley Angioma//Capillary Angioma 05/18/2009 04/14/2013 Melanocytic nevus of face 05/18/20092013 Melanocytic nevus of trunk 05/18/200904/14 SVT (supraventricular tachycardia) 03/31/2009 04/09/2021 Last Assessment & Plan: She is on coumadin, metoprolol. SEBORRHEIC KERATOSIS: IRRITATED//INFLAMED 200712/12/2012 Viral warts, unspecified 02/08/2008 013 Benign neoplasm of skin of o ther and unspecified parts of face 02/08/2008 12/12/2012 SEBACEOUS HYPERPLASIA//SEBACEOUS GLAND DIS NOS 1 04/09/2007 12/12/2012 Sebaceous cyst 02/08/2008 12/12/2012 Symptomatic menopausal or female climacteric sta tracy 02/04/2008 04/14/2013 Personal history of malignant neoplasm of breast 02/04/2008 04/15/2014 Other specified disorder of bladder 02/04/2008 02/13/2011 Nocturia 02/04/2008 04/15/2014 Episode Elevated Glucose after Steriod 8 04/15/2014 Diarrhea 10/14/2007 04/14/2013 Abdominal pain, left lower quadrant 10/08/2007 04/14/2013 MALIGN NEOPL BREAST NOS 08/18/2007 04/15/19 15 Postmenopausal atrophic vaginitis 07/28/2007 04/15/2014 HX BREAST CANCER 07/01/2007 04/09/2021 Overview: Summer of 2015, and 2007. On tamoxifen Last Assessment & Plan: summer, and 2007. On tamoxifen Lump or mass in breast 06/24/2007 4 HX OF TUBULAR ADENOMA 04/27/2007 04/09/2021 NEURALGIA///NERV ROOT/PLEXUS DIS NEC 03/25/2007 04/15/2014 XEROSIS///SEBACEOUS GLAND DIS NEC 03/25/2007 02/17/2012 Seborrheic dermatitis, unspecified 03/25/2007 02/17/2012 Palpitations 01/21/2006 02/17/2012 DEGENERATED DISK DISEASE LUMBOSACRAL-NO MYELOPAT HY 01/21/2006 02/17/2012 ELEVATED SGPT 01/21/2006 02/17/2012 SEBORRHEIC KERATOSES 11/25/2005 02/17/2012 ACTINIC DAMAGE//CHR SOLAR SKIN DAMAGE NOS 200502/17/2012 SURGICAL SCAR & FIBROSIS OF SKIN 11/25/2005 02/17/2012 DERMATOFIBROMAS///BENIGN DARINEL SKIN LEG 11/25/2005 02/17/2012 INTRADERMAL NEVI (MELANOCYTIC)/// DARINEL SKIN TRUNK 11/25/2005 02/17/2012 SKIN TAG PAPILLOMAS///SKIN HYPERTRO/ATROPH NOS 0 11/25/2005 02/17/2012 Abdominal pain, unspecified site 10/25/2005 02/17/2012 Sprain of neck 07/05/2005 02/17/2012 FATTY INFILTRATION LIVER 05/14/2005 022 Other diseases of pharynx, not elsewhere classif ied(478.29) 04/14/2013 Unspecified hemorrhoids without mention of compl ication 04/14/2013 Overview: Hemorrhoids Lumbago 04/15/2014 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 Merino on recommendation of Dr. Angeline nath Last Assessment & Plan: She is on asacol for the past few months, it was started by Dr. Merino on recommendation of Dr. Angeline nath documented as of this encounter (statuses as of 09/10/2021) [facility]04-22-2022 History of Past illness Narrative* Problem Noted Date Resolved Date Dysuria 07/06/2021 07/08/2021 Obesity, Class I, BMI 30-34.9 01/12/2021 GI bleed 01/12/2021 01/14/2021 Acute blood loss anemia 01/12/2021 01/15/20 21 LLQ pain 09/05/2017 04/09/2021 Overview: Added automatically from request for surgery [id number] 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, estrogen receptor positive 06/03/2017 07/06/2021 Personal history of breast cancer 12/18/2016 04/09/2021 Overview: Added automatically from request for surgery [id number] Permanent atrial fibrillation 12/26/2015 Diverticulitis of large inte angélica without perforation or abscess without bleeding 11/17/2015 04/09/2021 Lymphedema of arm 10/16/2015 04/09/2021 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 female breast 08/04/2015 04/09/2021 Malignant neoplasm of right female breast 201504/09/2021 Overview: The patient had tamoxifen for 5 years and then a gap and resumed after getting cancer for the second time. Last Assessment & Plan: The patient had tamoxifen for 5 years and then a gap and resumed after getting cancer for the second time. Abnormal mammogram of right breast 07/17/2015 04/09/2021 Pain of both shoulder joints 02/21/2015 Other and unspecified noninf ectious gastroenteritis and colitis(558.9) 11/03/2014 11/03/2014 Other specified rheumatoid arthritis, multiple s ites 05/06/2014 07/01/2018 Overview: Dx: 2014 She is on methotrexate and plaquenil Last Assessment & Plan: Dx: 2014 She is on methotrexate and plaquenil Acne rosacea 11/07/2013 04/15/2014 Folliculitis 11/07/2013 04/15/2014 Inflamed seborrheic keratosis 11/07/2013 Xerosis cutis 11/07/2013 04/15/2014 Solar lentigo 11/07/2013 04/15/2014 Crowley angioma 11/07/2013 04/15/2014 Pruritus 11/07/2013 04/15/2014 Backache, unspecified 07/09/2013 04/15/2014 Cutaneous skin tags 12/12/2012 04/14/2013 Intradermal nevus 12/12/2012 04/14/2013 Melanocytic nevi of trunk 12/12/20122013 Dermatofibroma of lower leg 12/12/201203/18 Urinary tract infection 09/02/2012 04/15/19 15 Abdominal pain 09/02/2012 04/15/2014 C. difficile colitis 09/02/2012 04/15/2014 Diverticulitis of colon (wit hout mention of hemorrhage)(562.11) 06/15/2012 04/15/2014 Other Seborrheic Keratoses 05/29/201204/15 Actinic skin damage 05/29/2012 04/15/2014 Epidermal cyst: L upper side nose 06/01/2011 04/15/2014 Xerosis cutis 06/01/2011 04/14/2013 Eczema intertrigo 04/25/2011 04/15/2014 Eczematous dermatitis 04/25/2011 04/14/2013 Intertrigo: Irritant fold area dermatitis 201104/14/2013 Urgency of urination 02/13/2011 04/15/2014 Female stress incontinence 02/13/201104/15 Urge incontinence 02/13/2011 04/15/2014 Recurrent UTI 01/28/2011 04/15/2014 Pain in joint, pelvic region and thigh 0 04/15/2014 Family history of malignant neoplasm of ovary 04/14/2013 Solar Lentigines 05/18/2009 04/14/2013 Crowley Angioma//Capillary Angioma 05/18/2009 04/14/2013 Melanocytic nevus of face 05/18/20092013 Melanocytic nevus of trunk 05/18/200904/14 SVT (supraventricular tachycardia) 03/31/2009 04/09/2021 Last Assessment & Plan: She is on coumadin, metoprolol. SEBORRHEIC KERATOSIS: IRRITATED//INFLAMED 200712/12/2012 Viral warts, unspecified 02/08/2008 013 Benign neoplasm of skin of o ther and unspecified parts of face 02/08/2008 12/12/2012 SEBACEOUS HYPERPLASIA//SEBACEOUS GLAND DIS NOS 1 04/09/2007 12/12/2012 Sebaceous cyst 02/08/2008 12/12/2012 Symptomatic menopausal or female climacteric sta tracy 02/04/2008 04/14/2013 Personal history of malignant neoplasm of breast 02/04/2008 04/15/2014 Other specified disorder of bladder 02/04/2008 02/13/2011 Nocturia 02/04/2008 04/15/2014 Episode Elevated Glucose after Steriod 8 04/15/2014 Diarrhea 10/14/2007 04/14/2013 Abdominal pain, left lower quadrant 10/08/2007 04/14/2013 MALIGN NEOPL BREAST NOS 08/18/2007 04/15/19 15 Postmenopausal atrophic vaginitis 07/28/2007 04/15/2014 HX BREAST CANCER 07/01/2007 04/09/2021 Overview: summer, and 2007. On tamoxifen Last Assessment & Plan: summer, and 2007. On tamoxifen Lump or mass in breast 06/24/2007 4 HX OF TUBULAR ADENOMA 04/27/2007 04/09/2021 NEURALGIA///NERV ROOT/PLEXUS DIS NEC 03/25/2007 04/15/2014 XEROSIS///SEBACEOUS GLAND DIS NEC 03/25/2007 02/17/2012 Seborrheic dermatitis, unspecified 03/25/2007 02/17/2012 Palpitations 01/21/2006 02/17/2012 DEGENERATED DISK DISEASE LUMBOSACRAL-NO MYELOPAT HY 01/21/2006 02/17/2012 ELEVATED SGPT 01/21/2006 02/17/2012 SEBORRHEIC KERATOSES 11/25/2005 02/17/2012 ACTINIC DAMAGE//CHR SOLAR SKIN DAMAGE NOS 200502/17/2012 SURGICAL SCAR & FIBROSIS OF SKIN 11/25/2005 02/17/2012 DERMATOFIBROMAS///BENIGN DARINEL SKIN LEG 11/25/2005 02/17/2012 INTRADERMAL NEVI (MELANOCYTIC)/// DARINEL SKIN TRUNK 11/25/2005 02/17/2012 SKIN TAG PAPILLOMAS///SKIN HYPERTRO/ATROPH NOS 0 11/25/2005 02/17/2012 Abdominal pain, unspecified site 10/25/2005 02/17/2012 Sprain of neck 07/05/2005 02/17/2012 FATTY INFILTRATION LIVER 05/14/2005 022 Other diseases of pharynx, not elsewhere classif ied(478.29) 04/14/2013 Unspecified hemorrhoids without mention of compl ication 04/14/2013 Overview: Hemorrhoids Lumbago 04/15/2014 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 Merino on recommendation of Dr. Angeline nath Last Assessment & Plan: She is on asacol for the past few months, it was started by Dr. Merino on recommendation of Dr. 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, estrogen receptor positive 06/03/2017 07/06/2021 Personal history of breast cancer 12/18/2016 04/09/2021 Overview: Added automatically from request for surgery [id number] Permanent atrial fibrillation 12/26/2015 Diverticulitis of large inte angélica without perforation or abscess without bleeding 11/17/2015 04/09/2021 Lymphedema of arm 10/16/2015 04/09/2021 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 female breast 08/04/2015 04/09/2021 Malignant neoplasm of right female breast 201504/09/2021 Overview: The patient had tamoxifen for 5 years and then a gap and resumed after getting cancer for the second time. Last Assessment & Plan: The patient had tamoxifen for 5 years and then a gap and resumed after getting cancer for the second time. Abnormal mammogram of right breast 07/17/2015 04/09/2021 Pain of both shoulder joints 02/21/2015 Other and unspecified noninf ectious gastroenteritis and colitis(558.9) 11/03/2014 11/03/2014 Other specified rheumatoid arthritis, multiple s ites 05/06/2014 07/01/2018 Overview: Dx: 2014 She is on methotrexate and plaquenil Last Assessment & Plan: Dx: 2014 She is on methotrexate and plaquenil Acne rosacea 11/07/2013 04/15/2014 Folliculitis 11/07/2013 04/15/2014 Inflamed seborrheic keratosis 11/07/2013 Xerosis cutis 11/07/2013 04/15/2014 Solar lentigo 11/07/2013 04/15/2014 Crowley angioma 11/07/2013 04/15/2014 Pruritus 11/07/2013 04/15/2014 Backache, unspecified 07/09/2013 04/15/2014 Cutaneous skin tags 12/12/2012 04/14/2013 Intradermal nevus 12/12/2012 04/14/2013 Melanocytic nevi of trunk 12/12/20122013 Dermatofibroma of lower leg 12/12/201203/18 Urinary tract infection 09/02/2012 04/15/19 15 Abdominal pain 09/02/2012 04/15/2014 C. difficile colitis 09/02/2012 04/15/2014 Diverticulitis of colon (wit hout mention of hemorrhage)(562.11) 06/15/2012 04/15/2014 Other Seborrheic Keratoses 05/29/201204/15 Actinic skin damage 05/29/2012 04/15/2014 Epidermal cyst: L upper side nose 06/01/2011 04/15/2014 Xerosis cutis 06/01/2011 04/14/2013 Eczema intertrigo 04/25/2011 04/15/2014 Eczematous dermatitis 04/25/2011 04/14/2013 Intertrigo: Irritant fold area dermatitis 201104/14/2013 Urgency of urination 02/13/2011 04/15/2014 Female stress incontinence 02/13/201104/15 Urge incontinence 02/13/2011 04/15/2014 Recurrent UTI 01/28/2011 04/15/2014 Pain in joint, pelvic region and thigh 0 04/15/2014 Family history of malignant neoplasm of ovary 04/14/2013 Solar Lentigines 05/18/2009 04/14/2013 Crowley Angioma//Capillary Angioma 05/18/2009 04/14/2013 Melanocytic nevus of face 05/18/20092013 Melanocytic nevus of trunk 05/18/200904/14 SVT (supraventricular tachycardia) 03/31/2009 04/09/2021 Last Assessment & Plan: She is on coumadin, metoprolol. SEBORRHEIC KERATOSIS: IRRITATED//INFLAMED 200712/12/2012 Viral warts, unspecified 02/08/2008 013 Benign neoplasm of skin of o ther and unspecified parts of face 02/08/2008 12/12/2012 SEBACEOUS HYPERPLASIA//SEBACEOUS GLAND DIS NOS 1 04/09/2007 12/12/2012 Sebaceous cyst 02/08/2008 12/12/2012 Symptomatic menopausal or female climacteric sta tracy 02/04/2008 04/14/2013 Personal history of malignant neoplasm of breast 02/04/2008 04/15/2014 Other specified disorder of bladder 02/04/2008 02/13/2011 Nocturia 02/04/2008 04/15/2014 Episode Elevated Glucose after Steriod 8 04/15/2014 Diarrhea 10/14/2007 04/14/2013 Abdominal pain, left lower quadrant 10/08/2007 04/14/2013 MALIGN NEOPL BREAST NOS 08/18/2007 04/15/19 15 Postmenopausal atrophic vaginitis 07/28/2007 04/15/2014 HX BREAST CANCER 07/01/2007 04/09/2021 Overview: Summer of 2015, and 2007. On tamoxifen Last Assessment & Plan: Summer of 2015, and 2007. On tamoxifen Lump or mass in breast 06/24/2007 4 HX OF TUBULAR ADENOMA 04/27/2007 04/09/2021 NEURALGIA///NERV ROOT/PLEXUS DIS NEC 03/25/2007 04/15/2014 XEROSIS///SEBACEOUS GLAND DIS NEC 03/25/2007 02/17/2012 Seborrheic dermatitis, unspecified 03/25/2007 02/17/2012 Palpitations 01/21/2006 02/17/2012 DEGENERATED DISK DISEASE LUMBOSACRAL-NO MYELOPAT HY 01/21/2006 02/17/2012 ELEVATED SGPT 01/21/2006 02/17/2012 SEBORRHEIC KERATOSES 11/25/2005 02/17/2012 ACTINIC DAMAGE//CHR SOLAR SKIN DAMAGE NOS 200502/17/2012 SURGICAL SCAR & FIBROSIS OF SKIN 11/25/2005 02/17/2012 DERMATOFIBROMAS///BENIGN DARINEL SKIN LEG 11/25/2005 02/17/2012 INTRADERMAL NEVI (MELANOCYTIC)/// DARINEL SKIN TRUNK 11/25/2005 02/17/2012 SKIN TAG PAPILLOMAS///SKIN HYPERTRO/ATROPH NOS 0 11/25/2005 02/17/2012 Abdominal pain, unspecified site 10/25/2005 02/17/2012 Sprain of neck 07/05/2005 02/17/2012 FATTY INFILTRATION LIVER 05/14/2005 022 Other diseases of pharynx, not elsewhere classif ied(478.29) 04/14/2013 Unspecified hemorrhoids without mention of compl ication 04/14/2013 Overview: Hemorrhoids Lumbago 04/15/2014 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 Merino on recommendation of Dr. Angeline nath Last Assessment & Plan: She is on asacol for the past few months, it was started by Dr. Merino on recommendation of Dr. 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, estrogen receptor positive 06/03/2017 07/06/2021 Personal history of breast cancer 12/18/2016 04/09/2021 Overview: Added automatically from request for surgery [id number] Permanent atrial fibrillation 12/26/2015 Diverticulitis of large inte angélica without perforation or abscess without bleeding 11/17/2015 04/09/2021 Lymphedema of arm 10/16/2015 04/09/2021 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 female breast 08/04/2015 04/09/2021 Malignant neoplasm of right female breast 201504/09/2021 Overview: The patient had tamoxifen for 5 years and then a gap and resumed after getting cancer for the second time. Last Assessment & Plan: The patient had tamoxifen for 5 years and then a gap and resumed after getting cancer for the second time. Abnormal mammogram of right breast 07/17/2015 04/09/2021 Pain of both shoulder joints 02/21/2015 Other and unspecified noninf ectious gastroenteritis and colitis(558.9) 11/03/2014 11/03/2014 Other specified rheumatoid arthritis, multiple s ites 05/06/2014 07/01/2018 Overview: Dx: 2014 She is on methotrexate and plaquenil Last Assessment & Plan: Dx: 2014 She is on methotrexate and plaquenil Acne rosacea 11/07/2013 04/15/2014 Folliculitis 11/07/2013 04/15/2014 Inflamed seborrheic keratosis 11/07/2013 Xerosis cutis 11/07/2013 04/15/2014 Solar lentigo 11/07/2013 04/15/2014 Crowley angioma 11/07/2013 04/15/2014 Pruritus 11/07/2013 04/15/2014 Backache, unspecified 07/09/2013 04/15/2014 Cutaneous skin tags 12/12/2012 04/14/2013 Intradermal nevus 12/12/2012 04/14/2013 Melanocytic nevi of trunk 12/12/20122013 Dermatofibroma of lower leg 12/12/201203/18 Urinary tract infection 09/02/2012 04/15/19 Abdominal pain 09/02/2012 04/15/2014 C. difficile colitis 09/02/2012 04/15/2014 Diverticulitis of colon (wit hout mention of hemorrhage)(562.11) 06/15/2012 04/15/2014 Other Seborrheic Keratoses 05/29/201204/15 Actinic skin damage 05/29/2012 04/15/2014 Epidermal cyst: L upper side nose 06/01/2011 04/15/2014 Xerosis cutis 06/01/2011 04/14/2013 Eczema intertrigo 04/25/2011 04/15/2014 Eczematous dermatitis 04/25/2011 04/14/2013 Intertrigo: Irritant fold area dermatitis 201104/14/2013 Urgency of urination 02/13/2011 04/15/2014 Female stress incontinence 02/13/201104/15 Urge incontinence 02/13/2011 04/15/2014 Recurrent UTI 01/28/2011 04/15/2014 Pain in joint, pelvic region and thigh 0 04/15/2014 Family history of malignant neoplasm of ovary 04/14/2013 Solar Lentigines 05/18/2009 04/14/2013 Crowley Angioma//Capillary Angioma 05/18/2009 04/14/2013 Melanocytic nevus of face 05/18/20092013 Melanocytic nevus of trunk 05/18/200904/14 SVT (supraventricular tachycardia) 03/31/2009 04/09/2021 Last Assessment & Plan: She is on coumadin, metoprolol. SEBORRHEIC KERATOSIS: IRRITATED//INFLAMED 200712/12/2012 Viral warts, unspecified 02/08/2008 013 Benign neoplasm of skin of o ther and unspecified parts of face 02/08/2008 12/12/2012 SEBACEOUS HYPERPLASIA//SEBACEOUS GLAND DIS NOS 1 04/09/2007 12/12/2012 Sebaceous cyst 02/08/2008 12/12/2012 Symptomatic menopausal or female climacteric sta tracy 02/04/2008 04/14/2013 Personal history of malignant neoplasm of breast 02/04/2008 04/15/2014 Other specified disorder of bladder 02/04/2008 02/13/2011 Nocturia 02/04/2008 04/15/2014 Episode Elevated Glucose after Steriod 04/15/2014 Diarrhea 10/14/2007 04/14/2013 Abdominal pain, left lower quadrant 10/08/2007 04/14/2013 MALIGN NEOPL BREAST NOS 08/18/2007 04/15/19 15 Postmenopausal atrophic vaginitis 07/28/2007 04/15/2014 HX BREAST CANCER 07/01/2007 04/09/2021 Overview: Summer of 2015, and 2007. On tamoxifen Last Assessment & Plan: summer, and 2007. On tamoxifen Lump or mass in breast 06/24/2007 4 HX OF TUBULAR ADENOMA 04/27/2007 04/09/2021 NEURALGIA///NERV ROOT/PLEXUS DIS NEC 03/25/2007 04/15/2014 XEROSIS///SEBACEOUS GLAND DIS NEC 03/25/2007 02/17/2012 Seborrheic dermatitis, unspecified 03/25/2007 02/17/2012 Palpitations 01/21/2006 02/17/2012 DEGENERATED DISK DISEASE LUMBOSACRAL-NO MYELOPAT HY 01/21/2006 02/17/2012 ELEVATED SGPT 01/21/2006 02/17/2012 SEBORRHEIC KERATOSES 11/25/2005 02/17/2012 ACTINIC DAMAGE//CHR SOLAR SKIN DAMAGE NOS 200502/17/2012 SURGICAL SCAR & FIBROSIS OF SKIN 11/25/2005 02/17/2012 DERMATOFIBROMAS///BENIGN DARINEL SKIN LEG 11/25/2005 02/17/2012 INTRADERMAL NEVI (MELANOCYTIC)/// DARINEL SKIN TRUNK 11/25/2005 02/17/2012 SKIN TAG PAPILLOMAS///SKIN HYPERTRO/ATROPH NOS 0 11/25/2005 02/17/2012 Abdominal pain, unspecified site 10/25/2005 02/17/2012 Sprain of neck 07/05/2005 02/17/2012 FATTY INFILTRATION LIVER 05/14/2005 022 Other diseases of pharynx, not elsewhere classif ied(478.29) 04/14/2013 Unspecified hemorrhoids without mention of compl ication 04/14/2013 Overview: Hemorrhoids Lumbago 04/15/2014 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 Merino on recommendation of Dr. Angeline nath Last Assessment & Plan: She is on asacol for the past few months, it was started by Dr. Merino on recommendation of Dr. 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, estrogen receptor positive 06/03/2017 07/06/2021 Personal history of breast cancer 12/18/2016 04/09/2021 Overview: Added automatically from request for surgery [id number] Permanent atrial fibrillation 12/26/2015 Diverticulitis of large inte angélica without perforation or abscess without bleeding 11/17/2015 04/09/2021 Lymphedema of arm 10/16/2015 04/09/2021 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 female breast 08/04/2015 04/09/2021 Malignant neoplasm of right female breast 201504/09/2021 Overview: The patient had tamoxifen for 5 years and then a gap and resumed after getting cancer for the second time. Last Assessment & Plan: The patient had tamoxifen for 5 years and then a gap and resumed after getting cancer for the second time. Abnormal mammogram of right breast 07/17/2015 04/09/2021 Pain of both shoulder joints 02/21/2015 Other and unspecified noninf ectious gastroenteritis and colitis(558.9) 11/03/2014 11/03/2014 Other specified rheumatoid arthritis, multiple s ites 05/06/2014 07/01/2018 Overview: Dx: 2014 She is on methotrexate and plaquenil Last Assessment & Plan: Dx: 2014 She is on methotrexate and plaquenil Acne rosacea 11/07/2013 04/15/2014 Folliculitis 11/07/2013 04/15/2014 Inflamed seborrheic keratosis 11/07/2013 Xerosis cutis 11/07/2013 04/15/2014 Solar lentigo 11/07/2013 04/15/2014 Crowley angioma 11/07/2013 04/15/2014 Pruritus 11/07/2013 04/15/2014 Backache, unspecified 07/09/2013 04/15/2014 Cutaneous skin tags 12/12/2012 04/14/2013 Intradermal nevus 12/12/2012 04/14/2013 Melanocytic nevi of trunk 12/12/20122013 Dermatofibroma of lower leg 12/12/201203/18 Urinary tract infection 09/02/2012 04/15/19 15 Abdominal pain 09/02/2012 04/15/2014 C. difficile colitis 09/02/2012 04/15/2014 Diverticulitis of colon (wit hout mention of hemorrhage)(562.11) 06/15/2012 04/15/2014 Other Seborrheic Keratoses 05/29/201204/15 Actinic skin damage 05/29/2012 04/15/2014 Epidermal cyst: L upper side nose 06/01/2011 04/15/2014 Xerosis cutis 06/01/2011 04/14/2013 Eczema intertrigo 04/25/2011 04/15/2014 Eczematous dermatitis 04/25/2011 04/14/2013 Intertrigo: Irritant fold area dermatitis 201104/14/2013 Urgency of urination 02/13/2011 04/15/2014 Female stress incontinence 02/13/201104/15 Urge incontinence 02/13/2011 04/15/2014 Recurrent UTI 01/28/2011 04/15/2014 Pain in joint, pelvic region and thigh 0 04/15/2014 Family history of malignant neoplasm of ovary 04/14/2013 Solar Lentigines 05/18/2009 04/14/2013 Crowley Angioma//Capillary Angioma 05/18/2009 04/14/2013 Melanocytic nevus of face 05/18/20092013 Melanocytic nevus of trunk 05/18/200904/14 SVT (supraventricular tachycardia) 03/31/2009 04/09/2021 Last Assessment & Plan: She is on coumadin, metoprolol. SEBORRHEIC KERATOSIS: IRRITATED//INFLAMED 200712/12/2012 Viral warts, unspecified 02/08/2008 013 Benign neoplasm of skin of o ther and unspecified parts of face 02/08/2008 12/12/2012 SEBACEOUS HYPERPLASIA//SEBACEOUS GLAND DIS NOS 1 04/09/2007 12/12/2012 Sebaceous cyst 02/08/2008 12/12/2012 Symptomatic menopausal or female climacteric sta tracy 02/04/2008 04/14/2013 Personal history of malignant neoplasm of breast 02/04/2008 04/15/2014 Other specified disorder of bladder 02/04/2008 02/13/2011 Nocturia 02/04/2008 04/15/2014 Episode Elevated Glucose after Steriod 8 04/15/2014 Diarrhea 10/14/2007 04/14/2013 Abdominal pain, left lower quadrant 10/08/2007 04/14/2013 MALIGN NEOPL BREAST NOS 08/18/2007 04/15/19 15 Postmenopausal atrophic vaginitis 07/28/2007 04/15/2014 HX BREAST CANCER 07/01/2007 04/09/2021 Overview: summer, and 2007. On tamoxifen Last Assessment & Plan: summer, and 2007. On tamoxifen Lump or mass in breast 06/24/2007 4 HX OF TUBULAR ADENOMA 04/27/2007 04/09/2021 NEURALGIA///NERV ROOT/PLEXUS DIS NEC 03/25/2007 04/15/2014 XEROSIS///SEBACEOUS GLAND DIS NEC 03/25/2007 02/17/2012 Seborrheic dermatitis, unspecified 03/25/2007 02/17/2012 Palpitations 01/21/2006 02/17/2012 DEGENERATED DISK DISEASE LUMBOSACRAL-NO MYELOPAT HY 01/21/2006 02/17/2012 ELEVATED SGPT 01/21/2006 02/17/2012 SEBORRHEIC KERATOSES 11/25/2005 02/17/2012 ACTINIC DAMAGE//CHR SOLAR SKIN DAMAGE NOS 200502/17/2012 SURGICAL SCAR & FIBROSIS OF SKIN 11/25/2005 02/17/2012 DERMATOFIBROMAS///BENIGN DARINEL SKIN LEG 11/25/2005 02/17/2012 INTRADERMAL NEVI (MELANOCYTIC)/// DARINEL SKIN TRUNK 11/25/2005 02/17/2012 SKIN TAG PAPILLOMAS///SKIN HYPERTRO/ATROPH NOS 0 11/25/2005 02/17/2012 Abdominal pain, unspecified site 10/25/2005 02/17/2012 Sprain of neck 07/05/2005 02/17/2012 FATTY INFILTRATION LIVER 05/14/2005 022 Other diseases of pharynx, not elsewhere classif ied(478.29) 04/14/2013 Unspecified hemorrhoids without mention of compl ication 04/14/2013 Overview: Hemorrhoids Lumbago 04/15/2014 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 Merino on recommendation of Dr. Angeline nath Last Assessment & Plan: She is on asacol for the past few months, it was started by Dr. Merino on recommendation of Dr. 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, estrogen receptor positive 06/03/2017 07/06/2021 Personal history of breast cancer 12/18/2016 04/09/2021 Overview: Added automatically from request for surgery [id number] Permanent atrial fibrillation 12/26/2015 Diverticulitis of large inte angélica without perforation or abscess without bleeding 11/17/2015 04/09/2021 Lymphedema of arm 10/16/2015 04/09/2021 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 female breast 08/04/2015 04/09/2021 Malignant neoplasm of right female breast 201504/09/2021 Overview: The patient had tamoxifen for 5 years and then a gap and resumed after getting cancer for the second time. Last Assessment & Plan: The patient had tamoxifen for 5 years and then a gap and resumed after getting cancer for the second time. Abnormal mammogram of right breast 07/17/2015 04/09/2021 Pain of both shoulder joints 02/21/2015 Other and unspecified noninf ectious gastroenteritis and colitis(558.9) 11/03/2014 11/03/2014 Other specified rheumatoid arthritis, multiple s ites 05/06/2014 07/01/2018 Overview: Dx: 2014 She is on methotrexate and plaquenil Last Assessment & Plan: Dx: 2014 She is on methotrexate and plaquenil Acne rosacea 11/07/2013 04/15/2014 Folliculitis 11/07/2013 04/15/2014 Inflamed seborrheic keratosis 11/07/2013 Xerosis cutis 11/07/2013 04/15/2014 Solar lentigo 11/07/2013 04/15/2014 Crowley angioma 11/07/2013 04/15/2014 Pruritus 11/07/2013 04/15/2014 Backache, unspecified 07/09/2013 04/15/2014 Cutaneous skin tags 12/12/2012 04/14/2013 Intradermal nevus 12/12/2012 04/14/2013 Melanocytic nevi of trunk 12/12/20122013 Dermatofibroma of lower leg 12/12/201203/18 Urinary tract infection 09/02/2012 04/15/19 15 Abdominal pain 09/02/2012 04/15/2014 C. difficile colitis 09/02/2012 04/15/2014 Diverticulitis of colon (wit hout mention of hemorrhage)(562.11) 06/15/2012 04/15/2014 Other Seborrheic Keratoses 05/29/201204/15 Actinic skin damage 05/29/2012 04/15/2014 Epidermal cyst: L upper side nose 06/01/2011 04/15/2014 Xerosis cutis 06/01/2011 04/14/2013 Eczema intertrigo 04/25/2011 04/15/2014 Eczematous dermatitis 04/25/2011 04/14/2013 Intertrigo: Irritant fold area dermatitis 201104/14/2013 Urgency of urination 02/13/2011 04/15/2014 Female stress incontinence 02/13/201104/15 Urge incontinence 02/13/2011 04/15/2014 Recurrent UTI 01/28/2011 04/15/2014 Pain in joint, pelvic region and thigh 0 04/15/2014 Family history of malignant neoplasm of ovary 04/14/2013 Solar Lentigines 05/18/2009 04/14/2013 Crowley Angioma//Capillary Angioma 05/18/2009 04/14/2013 Melanocytic nevus of face 05/18/20092013 Melanocytic nevus of trunk 05/18/200904/14 SVT (supraventricular tachycardia) 03/31/2009 04/09/2021 Last Assessment & Plan: She is on coumadin, metoprolol. SEBORRHEIC KERATOSIS: IRRITATED//INFLAMED 200712/12/2012 Viral warts, unspecified 02/08/2008 013 Benign neoplasm of skin of o ther and unspecified parts of face 02/08/2008 12/12/2012 SEBACEOUS HYPERPLASIA//SEBACEOUS GLAND DIS NOS 1 04/09/2007 12/12/2012 Sebaceous cyst 02/08/2008 12/12/2012 Symptomatic menopausal or female climacteric sta tracy 02/04/2008 04/14/2013 Personal history of malignant neoplasm of breast 02/04/2008 04/15/2014 Other specified disorder of bladder 02/04/2008 02/13/2011 Nocturia 02/04/2008 04/15/2014 Episode Elevated Glucose after Steriod 8 04/15/2014 Diarrhea 10/14/2007 04/14/2013 Abdominal pain, left lower quadrant 10/08/2007 04/14/2013 MALIGN NEOPL BREAST NOS 08/18/2007 04/15/19 15 Postmenopausal atrophic vaginitis 07/28/2007 04/15/2014 HX BREAST CANCER 07/01/2007 04/09/2021 Overview: summer, and 2007. On tamoxifen Last Assessment & Plan: summer, and 2007. On tamoxifen Lump or mass in breast 06/24/2007 4 HX OF TUBULAR ADENOMA 04/27/2007 04/09/2021 NEURALGIA///NERV ROOT/PLEXUS DIS NEC 03/25/2007 04/15/2014 XEROSIS///SEBACEOUS GLAND DIS NEC 03/25/2007 02/17/2012 Seborrheic dermatitis, unspecified 03/25/2007 02/17/2012 Palpitations 01/21/2006 02/17/2012 DEGENERATED DISK DISEASE LUMBOSACRAL-NO MYELOPAT HY 01/21/2006 02/17/2012 ELEVATED SGPT 01/21/2006 02/17/2012 SEBORRHEIC KERATOSES 11/25/2005 02/17/2012 ACTINIC DAMAGE//CHR SOLAR SKIN DAMAGE NOS 200502/17/2012 SURGICAL SCAR & FIBROSIS OF SKIN 11/25/2005 02/17/2012 DERMATOFIBROMAS///BENIGN DARINEL SKIN LEG 11/25/2005 02/17/2012 INTRADERMAL NEVI (MELANOCYTIC)/// DARINEL SKIN TRUNK 11/25/2005 02/17/2012 SKIN TAG PAPILLOMAS///SKIN HYPERTRO/ATROPH NOS 0 11/25/2005 02/17/2012 Abdominal pain, unspecified site 10/25/2005 02/17/2012 Sprain of neck 07/05/2005 02/17/2012 FATTY INFILTRATION LIVER 05/14/2005 022 Other diseases of pharynx, not elsewhere classif ied(478.29) 04/14/2013 Unspecified hemorrhoids without mention of compl ication 04/14/2013 Overview: Hemorrhoids Lumbago 04/15/2014 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 Merino on recommendation of Dr. Angeline nath Last Assessment & Plan: She is on asacol for the past few months, it was started by Dr. Merino on recommendation of Dr. Angeline nath documented as of this encounter (statuses as of 09/19/2021) [facility]04-22-2022 History of Past illness Narrative* Problem Noted Date Resolved Date Dysuria 07/06/2021 07/08/2021 Obesity, Class I, BMI 30-34.9 01/12/2021 GI bleed 01/12/2021 01/14/2021 Acute blood loss anemia 01/12/2021 01/15/20 21 LLQ pain 09/05/2017 04/09/2021 Overview: Added automatically from request for surgery [id number] 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, estrogen receptor positive 06/03/2017 07/06/2021 Personal history of breast cancer 12/18/2016 04/09/2021 Overview: Added automatically from request for surgery [id number] Permanent atrial fibrillation 12/26/2015 Diverticulitis of large inte angélica without perforation or abscess without bleeding 11/17/2015 04/09/2021 Lymphedema of arm 10/16/2015 04/09/2021 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 female breast 08/04/2015 04/09/2021 Malignant neoplasm of right female breast 201504/09/2021 Overview: The patient had tamoxifen for 5 years and then a gap and resumed after getting cancer for the second time. Last Assessment & Plan: The patient had tamoxifen for 5 years and then a gap and resumed after getting cancer for the second time. Abnormal mammogram of right breast 07/17/2015 04/09/2021 Pain of both shoulder joints 02/21/2015 Other and unspecified noninf ectious gastroenteritis and colitis(558.9) 11/03/2014 11/03/2014 Other specified rheumatoid arthritis, multiple s ites 05/06/2014 07/01/2018 Overview: Dx: 2014 She is on methotrexate and plaquenil Last Assessment & Plan: Dx: 2014 She is on methotrexate and plaquenil Acne rosacea 11/07/2013 04/15/2014 Folliculitis 11/07/2013 04/15/2014 Inflamed seborrheic keratosis 11/07/2013 Xerosis cutis 11/07/2013 04/15/2014 Solar lentigo 11/07/2013 04/15/2014 Crowley angioma 11/07/2013 04/15/2014 Pruritus 11/07/2013 04/15/2014 Backache, unspecified 07/09/2013 04/15/2014 Cutaneous skin tags 12/12/2012 04/14/2013 Intradermal nevus 12/12/2012 04/14/2013 Melanocytic nevi of trunk 12/12/20122013 Dermatofibroma of lower leg 12/12/201203/18 Urinary tract infection 09/02/2012 04/15/19 15 Abdominal pain 09/02/2012 04/15/2014 C. difficile colitis 09/02/2012 04/15/2014 Diverticulitis of colon (wit hout mention of hemorrhage)(562.11) 06/15/2012 04/15/2014 Other Seborrheic Keratoses 05/29/201204/15 Actinic skin damage 05/29/2012 04/15/2014 Epidermal cyst: L upper side nose 06/01/2011 04/15/2014 Xerosis cutis 06/01/2011 04/14/2013 Eczema intertrigo 04/25/2011 04/15/2014 Eczematous dermatitis 04/25/2011 04/14/2013 Intertrigo: Irritant fold area dermatitis 201104/14/2013 Urgency of urination 02/13/2011 04/15/2014 Female stress incontinence 02/13/201104/15 Pain in joint, pelvic region and thigh 10/09/201 0 04/15/2014 Family history of malignant neoplasm of ovary 04/14/2013 Solar Lentigines 05/18/2009 04/14/2013 Crowley Angioma//Capillary Angioma 05/18/2009 04/14/2013 Melanocytic nevus of face 05/18/20092013 Melanocytic nevus of trunk 05/18/200904/14 SVT (supraventricular tachycardia) 03/31/2009 04/09/2021 Last Assessment & Plan: She is on coumadin, metoprolol. SEBORRHEIC KERATOSIS: IRRITATED//INFLAMED 200712/12/2012 Viral warts, unspecified 02/08/2008 013 Benign neoplasm of skin of o ther and unspecified parts of face 02/08/2008 12/12/2012 SEBACEOUS HYPERPLASIA//SEBACEOUS GLAND DIS NOS 1 04/09/2007 12/12/2012 Sebaceous cyst 02/08/2008 12/12/2012 Symptomatic menopausal or female climacteric sta tracy 02/04/2008 04/14/2013 Personal history of malignant neoplasm of breast 02/04/2008 04/15/2014 Other specified disorder of bladder 02/04/2008 02/13/2011 Nocturia 02/04/2008 04/15/2014 Episode Elevated Glucose after Steriod 8 04/15/2014 Diarrhea 10/14/2007 04/14/2013 Abdominal pain, left lower quadrant 10/08/2007 04/14/2013 MALIGN NEOPL BREAST NOS 08/18/2007 04/15/19 15 Postmenopausal atrophic vaginitis 07/28/2007 04/15/2014 HX BREAST CANCER 07/01/2007 04/09/2021 Overview: Summer of 2015, and 2007. On tamoxifen Last Assessment & Plan: Summer of 2015, and 2007. On tamoxifen Lump or mass in breast 06/24/2007 4 HX OF TUBULAR ADENOMA 04/27/2007 04/09/2021 NEURALGIA///NERV ROOT/PLEXUS DIS NEC 03/25/2007 04/15/2014 XEROSIS///SEBACEOUS GLAND DIS NEC 03/25/2007 02/17/2012 Seborrheic dermatitis, unspecified 03/25/2007 02/17/2012 Palpitations 01/21/2006 02/17/2012 DEGENERATED DISK DISEASE LUMBOSACRAL-NO MYELOPAT HY 01/21/2006 02/17/2012 ELEVATED SGPT 01/21/2006 02/17/2012 SEBORRHEIC KERATOSES 11/25/2005 02/17/2012 ACTINIC DAMAGE//CHR SOLAR SKIN DAMAGE NOS 200502/17/2012 SURGICAL SCAR & FIBROSIS OF SKIN 11/25/2005 02/17/2012 DERMATOFIBROMAS///BENIGN DARINEL SKIN LEG 11/25/2005 02/17/2012 INTRADERMAL NEVI (MELANOCYTIC)/// DARINEL SKIN TRUNK 11/25/2005 02/17/2012 SKIN TAG PAPILLOMAS///SKIN HYPERTRO/ATROPH NOS 0 11/25/2005 02/17/2012 Abdominal pain, unspecified site 10/25/2005 02/17/2012 Sprain of neck 07/05/2005 02/17/2012 FATTY INFILTRATION LIVER 05/14/2005 022 Other diseases of pharynx, not elsewhere classif ied(478.29) 04/14/2013 Unspecified hemorrhoids without mention of compl ication 04/14/2013 Overview: Hemorrhoids Lumbago 04/15/2014 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 Merino on recommendation of Dr. Angeline nath Last Assessment & Plan: She is on asacol for the past few months, it was started by Dr. Merino on recommendation of Dr. Angeline nath documented as of this encounter (statuses as of 09/28/2021) [facility]04-[facility] History of Past illness Narrative* Problem Noted Date Resolved Date Dysuria 07/06/2021 07/08/2021 Obesity, Class I, BMI 30-34.9 01/12/2021 GI bleed 01/12/2021 01/14/2021 Acute blood loss anemia 01/12/2021 01/15/20 21 LLQ pain 09/05/2017 04/09/2021 Overview: Added automatically from request for surgery [id number] 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, estrogen receptor positive 06/03/2017 07/06/2021 Personal history of breast cancer 12/18/2016 04/09/2021 Overview: Added automatically from request for surgery [id number] Permanent atrial fibrillation 12/26/2015 Diverticulitis of large inte angélica without perforation or abscess without bleeding 11/17/2015 04/09/2021 Lymphedema of arm 10/16/2015 04/09/2021 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 female breast 08/04/2015 04/09/2021 Malignant neoplasm of right female breast 201504/09/2021 Overview: The patient had tamoxifen for 5 years and then a gap and resumed after getting cancer for the second time. Last Assessment & Plan: The patient had tamoxifen for 5 years and then a gap and resumed after getting cancer for the second time. Abnormal mammogram of right breast 07/17/2015 04/09/2021 Pain of both shoulder joints 02/21/2015 Other and unspecified noninf ectious gastroenteritis and colitis(558.9) 11/03/2014 11/03/2014 Other specified rheumatoid arthritis, multiple s ites 05/06/2014 07/01/2018 Overview: Dx: 2014 She is on methotrexate and plaquenil Last Assessment & Plan: Dx: 2014 She is on methotrexate and plaquenil Acne rosacea 11/07/2013 04/15/2014 Folliculitis 11/07/2013 04/15/2014 Inflamed seborrheic keratosis 11/07/2013 Xerosis cutis 11/07/2013 04/15/2014 Solar lentigo 11/07/2013 04/15/2014 Crowley angioma 11/07/2013 04/15/2014 Pruritus 11/07/2013 04/15/2014 Backache, unspecified 07/09/2013 04/15/2014 Cutaneous skin tags 12/12/2012 04/14/2013 Intradermal nevus 12/12/2012 04/14/2013 Melanocytic nevi of trunk 12/12/20122013 Dermatofibroma of lower leg 12/12/201203/18 Urinary tract infection 09/02/2012 04/15/19 15 Abdominal pain 09/02/2012 04/15/2014 C. difficile colitis 09/02/2012 04/15/2014 Diverticulitis of colon (wit hout mention of hemorrhage)(562.11) 06/15/2012 04/15/2014 Other Seborrheic Keratoses 05/29/201204/15 Actinic skin damage 05/29/2012 04/15/2014 Epidermal cyst: L upper side nose 06/01/2011 04/15/2014 Xerosis cutis 06/01/2011 04/14/2013 Eczema intertrigo 04/25/2011 04/15/2014 Eczematous dermatitis 04/25/2011 04/14/2013 Intertrigo: Irritant fold area dermatitis 201104/14/2013 Urgency of urination 02/13/2011 04/15/2014 Female stress incontinence 02/13/201104/15 Pain in joint, pelvic region and thigh 0 04/15/2014 Family history of malignant neoplasm of ovary 04/14/2013 Solar Lentigines 05/18/2009 04/14/2013 Crowley Angioma//Capillary Angioma 05/18/2009 04/14/2013 Melanocytic nevus of face 05/18/20092013 Melanocytic nevus of trunk 05/18/200904/14 SVT (supraventricular tachycardia) 03/31/2009 04/09/2021 Last Assessment & Plan: She is on coumadin, metoprolol. SEBORRHEIC KERATOSIS: IRRITATED//INFLAMED 200712/12/2012 Viral warts, unspecified 02/08/2008 013 Benign neoplasm of skin of o ther and unspecified parts of face 02/08/2008 12/12/2012 SEBACEOUS HYPERPLASIA//SEBACEOUS GLAND DIS NOS 1 04/09/2007 12/12/2012 Sebaceous cyst 02/08/2008 12/12/2012 Symptomatic menopausal or female climacteric sta tracy 02/04/2008 04/14/2013 Personal history of malignant neoplasm of breast 02/04/2008 04/15/2014 Other specified disorder of bladder 02/04/2008 02/13/2011 Nocturia 02/04/2008 04/15/2014 Episode Elevated Glucose after Steriod 8 04/15/2014 Diarrhea 10/14/2007 04/14/2013 Abdominal pain, left lower quadrant 10/08/2007 04/14/2013 MALIGN NEOPL BREAST NOS 08/18/2007 04/15/19 15 Postmenopausal atrophic vaginitis 07/28/2007 04/15/2014 HX BREAST CANCER 07/01/2007 04/09/2021 Overview: summer, and 2007. On tamoxifen Last Assessment & Plan: summer, and 2007. On tamoxifen Lump or mass in breast 06/24/2007 4 HX OF TUBULAR ADENOMA 04/27/2007 04/09/2021 NEURALGIA///NERV ROOT/PLEXUS DIS NEC 03/25/2007 04/15/2014 XEROSIS///SEBACEOUS GLAND DIS NEC 03/25/2007 02/17/2012 Seborrheic dermatitis, unspecified 03/25/2007 02/17/2012 Palpitations 01/21/2006 02/17/2012 DEGENERATED DISK DISEASE LUMBOSACRAL-NO MYELOPAT HY 01/21/2006 02/17/2012 ELEVATED SGPT 01/21/2006 02/17/2012 SEBORRHEIC KERATOSES 11/25/2005 02/17/2012 ACTINIC DAMAGE//CHR SOLAR SKIN DAMAGE NOS 200502/17/2012 SURGICAL SCAR & FIBROSIS OF SKIN 11/25/2005 02/17/2012 DERMATOFIBROMAS///BENIGN DARINEL SKIN LEG 11/25/2005 02/17/2012 INTRADERMAL NEVI (MELANOCYTIC)/// DARINEL SKIN TRUNK 11/25/2005 02/17/2012 SKIN TAG PAPILLOMAS///SKIN HYPERTRO/ATROPH NOS 0 11/25/2005 02/17/2012 Abdominal pain, unspecified site 10/25/2005 02/17/2012 Sprain of neck 07/05/2005 02/17/2012 FATTY INFILTRATION LIVER 05/14/2005 022 Other diseases of pharynx, not elsewhere classif ied(478.29) 04/14/2013 Unspecified hemorrhoids without mention of compl ication 04/14/2013 Overview: Hemorrhoids Lumbago 04/15/2014 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 Merino on recommendation of Dr. Angeline nath Last Assessment & Plan: She is on asacol for the past few months, it was started by Dr. Merino on recommendation of Dr. Angeline nath documented as of this encounter (statuses as of 10/02/2021) [facility]04[facility] History of Past illness Narrative* Problem Noted Date Resolved Date Dysuria 07/06/2021 07/08/2021 Obesity, Class I, BMI 30-34.9 01/12/2021 GI bleed 01/12/2021 01/14/2021 Acute blood loss anemia 01/12/2021 01/15/20 21 LLQ pain 09/05/2017 04/09/2021 Overview: Added automatically from request for surgery [id number] 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, estrogen receptor positive 06/03/2017 07/06/2021 Personal history of breast cancer 12/18/2016 04/09/2021 Overview: Added automatically from request for surgery [id number] Permanent atrial fibrillation 12/26/2015 Diverticulitis of large inte angélica without perforation or abscess without bleeding 11/17/2015 04/09/2021 Lymphedema of arm 10/16/2015 04/09/2021 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 female breast 08/04/2015 04/09/2021 Malignant neoplasm of right female breast 201504/09/2021 Overview: The patient had tamoxifen for 5 years and then a gap and resumed after getting cancer for the second time. Last Assessment & Plan: The patient had tamoxifen for 5 years and then a gap and resumed after getting cancer for the second time. Abnormal mammogram of right breast 07/17/2015 04/09/2021 Pain of both shoulder joints 02/21/2015 Other and unspecified noninf ectious gastroenteritis and colitis(558.9) 11/03/2014 11/03/2014 Other specified rheumatoid arthritis, multiple s ites 05/06/2014 07/01/2018 Overview: Dx: 2014 She is on methotrexate and plaquenil Last Assessment & Plan: Dx: 2014 She is on methotrexate and plaquenil Acne rosacea 11/07/2013 04/15/2014 Folliculitis 11/07/2013 04/15/2014 Inflamed seborrheic keratosis 11/07/2013 Xerosis cutis 11/07/2013 04/15/2014 Solar lentigo 11/07/2013 04/15/2014 Crowley angioma 11/07/2013 04/15/2014 Pruritus 11/07/2013 04/15/2014 Backache, unspecified 07/09/2013 04/15/2014 Cutaneous skin tags 12/12/2012 04/14/2013 Intradermal nevus 12/12/2012 04/14/2013 Melanocytic nevi of trunk 12/12/20122013 Dermatofibroma of lower leg 12/12/201203/18 Urinary tract infection 09/02/2012 04/15/19 15 Abdominal pain 09/02/2012 04/15/2014 C. difficile colitis 09/02/2012 04/15/2014 Diverticulitis of colon (wit hout mention of hemorrhage)(562.11) 06/15/2012 04/15/2014 Other Seborrheic Keratoses 05/29/201204/15 Actinic skin damage 05/29/2012 04/15/2014 Epidermal cyst: L upper side nose 06/01/2011 04/15/2014 Xerosis cutis 06/01/2011 04/14/2013 Eczema intertrigo 04/25/2011 04/15/2014 Eczematous dermatitis 04/25/2011 04/14/2013 Intertrigo: Irritant fold area dermatitis 201104/14/2013 Urgency of urination 02/13/2011 04/15/2014 Female stress incontinence 02/13/201104/15 Pain in joint, pelvic region and thigh 0 04/15/2014 Family history of malignant neoplasm of ovary 04/14/2013 Solar Lentigines 05/18/2009 04/14/2013 Crowley Angioma//Capillary Angioma 05/18/2009 04/14/2013 Melanocytic nevus of face 05/18/20092013 Melanocytic nevus of trunk 05/18/200904/14 SVT (supraventricular tachycardia) 03/31/2009 04/09/2021 Last Assessment & Plan: She is on coumadin, metoprolol. SEBORRHEIC KERATOSIS: IRRITATED//INFLAMED 200712/12/2012 Viral warts, unspecified 02/08/2008 013 Benign neoplasm of skin of o ther and unspecified parts of face 02/08/2008 12/12/2012 SEBACEOUS HYPERPLASIA//SEBACEOUS GLAND DIS NOS 1 04/09/2007 12/12/2012 Sebaceous cyst 02/08/2008 12/12/2012 Symptomatic menopausal or female climacteric sta tracy 02/04/2008 04/14/2013 Personal history of malignant neoplasm of breast 02/04/2008 04/15/2014 Other specified disorder of bladder 02/04/2008 02/13/2011 Nocturia 02/04/2008 04/15/2014 Episode Elevated Glucose after Steriod 8 04/15/2014 Diarrhea 10/14/2007 04/14/2013 Abdominal pain, left lower quadrant 10/08/2007 04/14/2013 MALIGN NEOPL BREAST NOS 08/18/2007 04/15/19 15 Postmenopausal atrophic vaginitis 07/28/2007 04/15/2014 HX BREAST CANCER 07/01/2007 04/09/2021 Overview: summer, and 2007. On tamoxifen Last Assessment & Plan: summer, and 2007. On tamoxifen Lump or mass in breast 06/24/2007 4 HX OF TUBULAR ADENOMA 04/27/2007 04/09/2021 NEURALGIA///NERV ROOT/PLEXUS DIS NEC 03/25/2007 04/15/2014 XEROSIS///SEBACEOUS GLAND DIS NEC 03/25/2007 02/17/2012 Seborrheic dermatitis, unspecified 03/25/2007 02/17/2012 Palpitations 01/21/2006 02/17/2012 DEGENERATED DISK DISEASE LUMBOSACRAL-NO MYELOPAT HY 01/21/2006 02/17/2012 ELEVATED SGPT 01/21/2006 02/17/2012 SEBORRHEIC KERATOSES 11/25/2005 02/17/2012 ACTINIC DAMAGE//CHR SOLAR SKIN DAMAGE NOS 200502/17/2012 SURGICAL SCAR & FIBROSIS OF SKIN 11/25/2005 02/17/2012 DERMATOFIBROMAS///BENIGN DARINEL SKIN LEG 11/25/2005 02/17/2012 INTRADERMAL NEVI (MELANOCYTIC)/// DARINEL SKIN TRUNK 11/25/2005 02/17/2012 SKIN TAG PAPILLOMAS///SKIN HYPERTRO/ATROPH NOS 0 11/25/2005 02/17/2012 Abdominal pain, unspecified site 10/25/2005 02/17/2012 Sprain of neck 07/05/2005 02/17/2012 FATTY INFILTRATION LIVER 05/14/2005 022 Other diseases of pharynx, not elsewhere classif ied(478.29) 04/14/2013 Unspecified hemorrhoids without mention of compl ication 04/14/2013 Overview: Hemorrhoids Lumbago 04/15/2014 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 Merino on recommendation of Dr. Angeline nath Last Assessment & Plan: She is on asacol for the past few months, it was started by Dr. Merino on recommendation of Dr. Angeline nath documented as of this encounter (statuses as of 10/11/2021) [facility]04-[facility]22 History of Past illness Narrative* Problem Noted Date Resolved Date Dysuria 07/06/2021 07/08/2021 Obesity, Class I, BMI 30-34.9 01/12/2021 GI bleed 01/12/2021 01/14/2021 Acute blood loss anemia 01/12/2021 01/15/20 LLQ pain 09/05/2017 04/09/2021 Overview: Added automatically from request for surgery [id number] 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, estrogen receptor positive 06/03/2017 07/06/2021 Personal history of breast cancer 12/18/2016 04/09/2021 Overview: Added automatically from request for surgery [id number] Permanent atrial fibrillation 12/26/2015 Diverticulitis of large inte angélica without perforation or abscess without bleeding 11/17/2015 04/09/2021 Lymphedema of arm 10/16/2015 04/09/2021 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 female breast 08/04/2015 04/09/2021 Malignant neoplasm of right female breast 201504/09/2021 Overview: The patient had tamoxifen for 5 years and then a gap and resumed after getting cancer for the second time. Last Assessment & Plan: The patient had tamoxifen for 5 years and then a gap and resumed after getting cancer for the second time. Abnormal mammogram of right breast 07/17/2015 04/09/2021 Pain of both shoulder joints 02/21/2015 Other and unspecified noninf ectious gastroenteritis and colitis(558.9) 11/03/2014 11/03/2014 Other specified rheumatoid arthritis, multiple s ites 05/06/2014 07/01/2018 Overview: Dx: 2014 She is on methotrexate and plaquenil Last Assessment & Plan: Dx: 2014 She is on methotrexate and plaquenil Acne rosacea 11/07/2013 04/15/2014 Folliculitis 11/07/2013 04/15/2014 Inflamed seborrheic keratosis 11/07/2013 Xerosis cutis 11/07/2013 04/15/2014 Solar lentigo 11/07/2013 04/15/2014 Crowley angioma 11/07/2013 04/15/2014 Pruritus 11/07/2013 04/15/2014 Backache, unspecified 07/09/2013 04/15/2014 Cutaneous skin tags 12/12/2012 04/14/2013 Intradermal nevus 12/12/2012 04/14/2013 Melanocytic nevi of trunk 12/12/20122013 Dermatofibroma of lower leg 12/12/201203/18 Urinary tract infection 09/02/2012 04/15/19 15 Abdominal pain 09/02/2012 04/15/2014 C. difficile colitis 09/02/2012 04/15/2014 Diverticulitis of colon (wit hout mention of hemorrhage)(562.11) 06/15/2012 04/15/2014 Other Seborrheic Keratoses 05/29/201204/15 Actinic skin damage 05/29/2012 04/15/2014 Epidermal cyst: L upper side nose 06/01/2011 04/15/2014 Xerosis cutis 06/01/2011 04/14/2013 Eczema intertrigo 04/25/2011 04/15/2014 Eczematous dermatitis 04/25/2011 04/14/2013 Intertrigo: Irritant fold area dermatitis 201104/14/2013 Urgency of urination 02/13/2011 04/15/2014 Female stress incontinence 02/13/201104/15 Pain in joint, pelvic region and thigh 0 04/15/2014 Family history of malignant neoplasm of ovary 04/14/2013 Solar Lentigines 05/18/2009 04/14/2013 Crowley Angioma//Capillary Angioma 05/18/2009 04/14/2013 Melanocytic nevus of face 05/18/20092013 Melanocytic nevus of trunk 05/18/200904/14 SVT (supraventricular tachycardia) 03/31/2009 04/09/2021 Last Assessment & Plan: She is on coumadin, metoprolol. SEBORRHEIC KERATOSIS: IRRITATED//INFLAMED 200712/12/2012 Viral warts, unspecified 02/08/2008 013 Benign neoplasm of skin of o ther and unspecified parts of face 02/08/2008 12/12/2012 SEBACEOUS HYPERPLASIA//SEBACEOUS GLAND DIS NOS 1 04/09/2007 12/12/2012 Sebaceous cyst 02/08/2008 12/12/2012 Symptomatic menopausal or female climacteric sta tracy 02/04/2008 04/14/2013 Personal history of malignant neoplasm of breast 02/04/2008 04/15/2014 Other specified disorder of bladder 02/04/2008 02/13/2011 Nocturia 02/04/2008 04/15/2014 Episode Elevated Glucose after Steriod 8 04/15/2014 Diarrhea 10/14/2007 04/14/2013 Abdominal pain, left lower quadrant 10/08/2007 04/14/2013 MALIGN NEOPL BREAST NOS 08/18/2007 04/15/19 15 Postmenopausal atrophic vaginitis 07/28/2007 04/15/2014 HX BREAST CANCER 07/01/2007 04/09/2021 Overview: Summer of 2015, and 2007. On tamoxifen Last Assessment & Plan: Summer of 2015, and 2007. On tamoxifen Lump or mass in breast 06/24/2007 4 HX OF TUBULAR ADENOMA 04/27/2007 04/09/2021 NEURALGIA///NERV ROOT/PLEXUS DIS NEC 03/25/2007 04/15/2014 XEROSIS///SEBACEOUS GLAND DIS NEC 03/25/2007 02/17/2012 Seborrheic dermatitis, unspecified 03/25/2007 02/17/2012 Palpitations 01/21/2006 02/17/2012 DEGENERATED DISK DISEASE LUMBOSACRAL-NO MYELOPAT HY 01/21/2006 02/17/2012 ELEVATED SGPT 01/21/2006 02/17/2012 SEBORRHEIC KERATOSES 11/25/2005 02/17/2012 ACTINIC DAMAGE//CHR SOLAR SKIN DAMAGE NOS 200502/17/2012 SURGICAL SCAR & FIBROSIS OF SKIN 11/25/2005 02/17/2012 DERMATOFIBROMAS///BENIGN DARINEL SKIN LEG 11/25/2005 02/17/2012 INTRADERMAL NEVI (MELANOCYTIC)/// DARINEL SKIN TRUNK 11/25/2005 02/17/2012 SKIN TAG PAPILLOMAS///SKIN HYPERTRO/ATROPH NOS 0 11/25/2005 02/17/2012 Abdominal pain, unspecified site 10/25/2005 02/17/2012 Sprain of neck 07/05/2005 02/17/2012 FATTY INFILTRATION LIVER 05/14/2005 022 Other diseases of pharynx, not elsewhere classif ied(478.29) 04/14/2013 Unspecified hemorrhoids without mention of compl ication 04/14/2013 Overview: Hemorrhoids Lumbago 04/15/2014 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 Merino on recommendation of Dr. Angeline nath Last Assessment & Plan: She is on asacol for the past few months, it was started by Dr. Merino on recommendation of Dr. Angeline nath documented as of this encounter (statuses as of 10/15/2021) [facility]04-22-2022 History of Past illness Narrative* Problem Noted Date Resolved Date Dysuria 07/06/2021 07/08/2021 Obesity, Class I, BMI 30-34.9 01/12/2021 GI bleed 01/12/2021 01/14/2021 Acute blood loss anemia 01/12/2021 01/15/20 LLQ pain 09/05/2017 04/09/2021 Overview: Added automatically from request for surgery [id number] 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, estrogen receptor positive 06/03/2017 07/06/2021 Personal history of breast cancer 12/18/2016 04/09/2021 Overview: Added automatically from request for surgery [id number] Permanent atrial fibrillation 12/26/2015 Diverticulitis of large inte angélica without perforation or abscess without bleeding 11/17/2015 04/09/2021 Lymphedema of arm 10/16/2015 04/09/2021 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 female breast 08/04/2015 04/09/2021 Malignant neoplasm of right female breast 201504/09/2021 Overview: The patient had tamoxifen for 5 years and then a gap and resumed after getting cancer for the second time. Last Assessment & Plan: The patient had tamoxifen for 5 years and then a gap and resumed after getting cancer for the second time. Abnormal mammogram of right breast 07/17/2015 04/09/2021 Pain of both shoulder joints 02/21/2015 Other and unspecified noninf ectious gastroenteritis and colitis(558.9) 11/03/2014 11/03/2014 Other specified rheumatoid arthritis, multiple s ites 05/06/2014 07/01/2018 Overview: Dx: 2014 She is on methotrexate and plaquenil Last Assessment & Plan: Dx: 2014 She is on methotrexate and plaquenil Acne rosacea 11/07/2013 04/15/2014 Folliculitis 11/07/2013 04/15/2014 Inflamed seborrheic keratosis 11/07/2013 Xerosis cutis 11/07/2013 04/15/2014 Solar lentigo 11/07/2013 04/15/2014 Crowley angioma 11/07/2013 04/15/2014 Pruritus 11/07/2013 04/15/2014 Backache, unspecified 07/09/2013 04/15/2014 Cutaneous skin tags 12/12/2012 04/14/2013 Intradermal nevus 12/12/2012 04/14/2013 Melanocytic nevi of trunk 12/12/20122013 Dermatofibroma of lower leg 12/12/201203/18 Urinary tract infection 09/02/2012 04/15/19 15 Abdominal pain 09/02/2012 04/15/2014 C. difficile colitis 09/02/2012 04/15/2014 Diverticulitis of colon (wit hout mention of hemorrhage)(562.11) 06/15/2012 04/15/2014 Other Seborrheic Keratoses 05/29/201204/15 Actinic skin damage 05/29/2012 04/15/2014 Epidermal cyst: L upper side nose 06/01/2011 04/15/2014 Xerosis cutis 06/01/2011 04/14/2013 Eczema intertrigo 04/25/2011 04/15/2014 Eczematous dermatitis 04/25/2011 04/14/2013 Intertrigo: Irritant fold area dermatitis 201104/14/2013 Urgency of urination 02/13/2011 04/15/2014 Female stress incontinence 02/13/201104/15 Pain in joint, pelvic region and thigh 10/09/ 0 04/15/2014 Family history of malignant neoplasm of ovary 04/14/2013 Solar Lentigines 05/18/2009 04/14/2013 Crowley Angioma//Capillary Angioma 05/18/2009 04/14/2013 Melanocytic nevus of face 05/18/20092013 Melanocytic nevus of trunk 05/18/200904/14 SVT (supraventricular tachycardia) 03/31/2009 04/09/2021 Last Assessment & Plan: She is on coumadin, metoprolol. SEBORRHEIC KERATOSIS: IRRITATED//INFLAMED 200712/12/2012 Viral warts, unspecified 02/08/2008 013 Benign neoplasm of skin of o ther and unspecified parts of face 02/08/2008 12/12/2012 SEBACEOUS HYPERPLASIA//SEBACEOUS GLAND DIS NOS 1 04/09/2007 12/12/2012 Sebaceous cyst 02/08/2008 12/12/2012 Symptomatic menopausal or female climacteric sta tracy 02/04/2008 04/14/2013 Personal history of malignant neoplasm of breast 02/04/2008 04/15/2014 Other specified disorder of bladder 02/04/2008 02/13/2011 Nocturia 02/04/2008 04/15/2014 Episode Elevated Glucose after Steriod 8 04/15/2014 Diarrhea 10/14/2007 04/14/2013 Abdominal pain, left lower quadrant 10/08/2007 04/14/2013 MALIGN NEOPL BREAST NOS 08/18/2007 04/15/19 15 Postmenopausal atrophic vaginitis 07/28/2007 04/15/2014 HX BREAST CANCER 07/01/2007 04/09/2021 Overview: summer, and 2007. On tamoxifen Last Assessment & Plan: summer, and 2007. On tamoxifen Lump or mass in breast 06/24/2007 4 HX OF TUBULAR ADENOMA 04/27/2007 04/09/2021 NEURALGIA///NERV ROOT/PLEXUS DIS NEC 03/25/2007 04/15/2014 XEROSIS///SEBACEOUS GLAND DIS NEC 03/25/2007 02/17/2012 Seborrheic dermatitis, unspecified 03/25/2007 02/17/2012 Palpitations 01/21/2006 02/17/2012 DEGENERATED DISK DISEASE LUMBOSACRAL-NO MYELOPAT HY 01/21/2006 02/17/2012 ELEVATED SGPT 01/21/2006 02/17/2012 SEBORRHEIC KERATOSES 11/25/2005 02/17/2012 ACTINIC DAMAGE//CHR SOLAR SKIN DAMAGE NOS 200502/17/2012 SURGICAL SCAR & FIBROSIS OF SKIN 11/25/2005 02/17/2012 DERMATOFIBROMAS///BENIGN DARINEL SKIN LEG 11/25/2005 02/17/2012 INTRADERMAL NEVI (MELANOCYTIC)/// DARINEL SKIN TRUNK 11/25/2005 02/17/2012 SKIN TAG PAPILLOMAS///SKIN HYPERTRO/ATROPH NOS 0 11/25/2005 02/17/2012 Abdominal pain, unspecified site 10/25/2005 02/17/2012 Sprain of neck 07/05/2005 02/17/2012 FATTY INFILTRATION LIVER 05/14/2005 022 Other diseases of pharynx, not elsewhere classif ied(478.29) 04/14/2013 Unspecified hemorrhoids without mention of compl ication 04/14/2013 Overview: Hemorrhoids Lumbago 04/15/2014 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 Merino on recommendation of Dr. Angeline nath Last Assessment & Plan: She is on asacol for the past few months, it was started by Dr. Merino on recommendation of Dr. 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, estrogen receptor positive 06/03/2017 07/06/2021 Personal history of breast cancer 12/18/2016 04/09/2021 Overview: Added automatically from request for surgery [id number] Permanent atrial fibrillation 12/26/2015 Diverticulitis of large inte angélica without perforation or abscess without bleeding 11/17/2015 04/09/2021 Lymphedema of arm 10/16/2015 04/09/2021 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 female breast 08/04/2015 04/09/2021 Malignant neoplasm of right female breast 201504/09/2021 Overview: The patient had tamoxifen for 5 years and then a gap and resumed after getting cancer for the second time. Last Assessment & Plan: The patient had tamoxifen for 5 years and then a gap and resumed after getting cancer for the second time. Abnormal mammogram of right breast 07/17/2015 04/09/2021 Pain of both shoulder joints 02/21/2015 Other and unspecified noninf ectious gastroenteritis and colitis(558.9) 11/03/2014 11/03/2014 Other specified rheumatoid arthritis, multiple s ites 05/06/2014 07/01/2018 Overview: Dx: 2014 She is on methotrexate and plaquenil Last Assessment & Plan: Dx: 2014 She is on methotrexate and plaquenil Acne rosacea 11/07/2013 04/15/2014 Folliculitis 11/07/2013 04/15/2014 Inflamed seborrheic keratosis 11/07/2013 Xerosis cutis 11/07/2013 04/15/2014 Solar lentigo 11/07/2013 04/15/2014 Crowley angioma 11/07/2013 04/15/2014 Pruritus 11/07/2013 04/15/2014 Backache, unspecified 07/09/2013 04/15/2014 Cutaneous skin tags 12/12/2012 04/14/2013 Intradermal nevus 12/12/2012 04/14/2013 Melanocytic nevi of trunk 12/12/20122013 Dermatofibroma of lower leg 12/12/201203/18 Urinary tract infection 09/02/2012 04/15/19 15 Abdominal pain 09/02/2012 04/15/2014 C. difficile colitis 09/02/2012 04/15/2014 Diverticulitis of colon (wit hout mention of hemorrhage)(562.11) 06/15/2012 04/15/2014 Other Seborrheic Keratoses 05/29/201204/15 Actinic skin damage 05/29/2012 04/15/2014 Epidermal cyst: L upper side nose 06/01/2011 04/15/2014 Xerosis cutis 06/01/2011 04/14/2013 Eczema intertrigo 04/25/2011 04/15/2014 Eczematous dermatitis 04/25/2011 04/14/2013 Intertrigo: Irritant fold area dermatitis 201104/14/2013 Urgency of urination 02/13/2011 04/15/2014 Female stress incontinence 02/13/201104/15 Pain in joint, pelvic region and thigh 0 04/15/2014 Family history of malignant neoplasm of ovary 04/14/2013 Solar Lentigines 05/18/2009 04/14/2013 Crowley Angioma//Capillary Angioma 05/18/2009 04/14/2013 Melanocytic nevus of face 05/18/20092013 Melanocytic nevus of trunk 05/18/200904/14 SVT (supraventricular tachycardia) 03/31/2009 04/09/2021 Last Assessment & Plan: She is on coumadin, metoprolol. SEBORRHEIC KERATOSIS: IRRITATED//INFLAMED 200712/12/2012 Viral warts, unspecified 02/08/2008 013 Benign neoplasm of skin of o ther and unspecified parts of face 02/08/2008 12/12/2012 SEBACEOUS HYPERPLASIA//SEBACEOUS GLAND DIS NOS 1 04/09/2007 12/12/2012 Sebaceous cyst 02/08/2008 12/12/2012 Symptomatic menopausal or female climacteric sta tracy 02/04/2008 04/14/2013 Personal history of malignant neoplasm of breast 02/04/2008 04/15/2014 Other specified disorder of bladder 02/04/2008 02/13/2011 Nocturia 02/04/2008 04/15/2014 Episode Elevated Glucose after Steriod 10/21/200 8 04/15/2014 Diarrhea 10/14/2007 04/14/2013 Abdominal pain, left lower quadrant 10/08/2007 04/14/2013 MALIGN NEOPL BREAST NOS 08/18/2007 04/15/19 15 Postmenopausal atrophic vaginitis 07/28/2007 04/15/2014 HX BREAST CANCER 07/01/2007 04/09/2021 Overview: summer, and 2008. On tamoxifen Last Assessment & Plan: summer, and 2007. On tamoxifen Lump or mass in breast 06/24/2007 4 HX OF TUBULAR ADENOMA 04/27/2007 04/09/2021 NEURALGIA///NERV ROOT/PLEXUS DIS NEC 03/25/2007 04/15/2014 XEROSIS///SEBACEOUS GLAND DIS NEC 03/25/2007 02/17/2012 Seborrheic dermatitis, unspecified 03/25/2007 02/17/2012 Palpitations 01/21/2006 02/17/2012 DEGENERATED DISK DISEASE LUMBOSACRAL-NO MYELOPAT HY 01/21/2006 02/17/2012 ELEVATED SGPT 01/21/2006 02/17/2012 SEBORRHEIC KERATOSES 11/25/2005 02/17/2012 ACTINIC DAMAGE//CHR SOLAR SKIN DAMAGE NOS 200502/17/2012 SURGICAL SCAR & FIBROSIS OF SKIN 11/25/2005 02/17/2012 DERMATOFIBROMAS///BENIGN DARINEL SKIN LEG 11/25/2005 02/17/2012 INTRADERMAL NEVI (MELANOCYTIC)/// DARINEL SKIN TRUNK 11/25/2005 02/17/2012 SKIN TAG PAPILLOMAS///SKIN HYPERTRO/ATROPH NOS 0 11/25/2005 02/17/2012 Abdominal pain, unspecified site 10/25/2005 02/17/2012 Sprain of neck 07/05/2005 02/17/2012 FATTY INFILTRATION LIVER 05/14/2005 022 Other diseases of pharynx, not elsewhere classif ied(478.29) 04/14/2013 Unspecified hemorrhoids without mention of compl ication 04/14/2013 Overview: Hemorrhoids Lumbago 04/15/2014 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 Merino on recommendation of Dr. Angeline nath Last Assessment & Plan: She is on asacol for the past few months, it was started by Dr. Merino on recommendation of Dr. 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, estrogen receptor positive 06/03/2017 07/06/2021 Personal history of breast cancer 12/18/2016 04/09/2021 Overview: Added automatically from request for surgery [id number] Permanent atrial fibrillation 12/26/2015 Diverticulitis of large inte angélica without perforation or abscess without bleeding 11/17/2015 04/09/2021 Lymphedema of arm 10/16/2015 04/09/2021 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 female breast 08/04/2015 04/09/2021 Malignant neoplasm of right female breast 201504/09/2021 Overview: The patient had tamoxifen for 5 years and then a gap and resumed after getting cancer for the second time. Last Assessment & Plan: The patient had tamoxifen for 5 years and then a gap and resumed after getting cancer for the second time. Abnormal mammogram of right breast 07/17/2015 04/09/2021 Pain of both shoulder joints 02/21/2015 Other and unspecified noninf ectious gastroenteritis and colitis(558.9) 11/03/2014 11/03/2014 Other specified rheumatoid arthritis, multiple s ites 05/06/2014 07/01/2018 Overview: Dx: 2014 She is on methotrexate and plaquenil Last Assessment & Plan: Dx: 2014 She is on methotrexate and plaquenil Acne rosacea 11/07/2013 04/15/2014 Folliculitis 11/07/2013 04/15/2014 Inflamed seborrheic keratosis 11/07/2013 Xerosis cutis 11/07/2013 04/15/2014 Solar lentigo 11/07/2013 04/15/2014 Crowley angioma 11/07/2013 04/15/2014 Pruritus 11/07/2013 04/15/2014 Backache, unspecified 07/09/2013 04/15/2014 Cutaneous skin tags 12/12/2012 04/14/2013 Intradermal nevus 12/12/2012 04/14/2013 Melanocytic nevi of trunk 12/12/20122013 Dermatofibroma of lower leg 12/12/201203/18 Urinary tract infection 09/02/2012 04/15/19 15 Abdominal pain 09/02/2012 04/15/2014 C. difficile colitis 09/02/2012 04/15/2014 Diverticulitis of colon (wit hout mention of hemorrhage)(562.11) 06/15/2012 04/15/2014 Other Seborrheic Keratoses 05/29/201204/15 Actinic skin damage 05/29/2012 04/15/2014 Epidermal cyst: L upper side nose 06/01/2011 04/15/2014 Xerosis cutis 06/01/2011 04/14/2013 Eczema intertrigo 04/25/2011 04/15/2014 Eczematous dermatitis 04/25/2011 04/14/2013 Intertrigo: Irritant fold area dermatitis 201104/14/2013 Urgency of urination 02/13/2011 04/15/2014 Female stress incontinence 02/13/201104/15 Pain in joint, pelvic region and thigh 0 04/15/2014 Family history of malignant neoplasm of ovary 04/14/2013 Solar Lentigines 05/18/2009 04/14/2013 Crowley Angioma//Capillary Angioma 05/18/2009 04/14/2013 Melanocytic nevus of face 05/18/20092013 Melanocytic nevus of trunk 05/18/200904/14 SVT (supraventricular tachycardia) 03/31/2009 04/09/2021 Last Assessment & Plan: She is on coumadin, metoprolol. SEBORRHEIC KERATOSIS: IRRITATED//INFLAMED 200712/12/2012 Viral warts, unspecified 02/08/2008 013 Benign neoplasm of skin of o ther and unspecified parts of face 02/08/2008 12/12/2012 SEBACEOUS HYPERPLASIA//SEBACEOUS GLAND DIS NOS 1 04/09/2007 12/12/2012 Sebaceous cyst 02/08/2008 12/12/2012 Symptomatic menopausal or female climacteric sta tracy 02/04/2008 04/14/2013 Personal history of malignant neoplasm of breast 02/04/2008 04/15/2014 Other specified disorder of bladder 02/04/2008 02/13/2011 Nocturia 02/04/2008 04/15/2014 Episode Elevated Glucose after Steriod 8 04/15/2014 Diarrhea 10/14/2007 04/14/2013 Abdominal pain, left lower quadrant 10/08/2007 04/14/2013 MALIGN NEOPL BREAST NOS 08/18/2007 04/15/19 15 Postmenopausal atrophic vaginitis 07/28/2007 04/15/2014 HX BREAST CANCER 07/01/2007 04/09/2021 Overview: Summer of 2015, and 2007. On tamoxifen Last Assessment & Plan: summer, and 2007. On tamoxifen Lump or mass in breast 06/24/2007 4 HX OF TUBULAR ADENOMA 04/27/2007 04/09/2021 NEURALGIA///NERV ROOT/PLEXUS DIS NEC 03/25/2007 04/15/2014 XEROSIS///SEBACEOUS GLAND DIS NEC 03/25/2007 02/17/2012 Seborrheic dermatitis, unspecified 03/25/2007 02/17/2012 Palpitations 01/21/2006 02/17/2012 DEGENERATED DISK DISEASE LUMBOSACRAL-NO MYELOPAT HY 01/21/2006 02/17/2012 ELEVATED SGPT 01/21/2006 02/17/2012 SEBORRHEIC KERATOSES 11/25/2005 02/17/2012 ACTINIC DAMAGE//CHR SOLAR SKIN DAMAGE NOS 200502/17/2012 SURGICAL SCAR & FIBROSIS OF SKIN 11/25/2005 02/17/2012 DERMATOFIBROMAS///BENIGN DARINEL SKIN LEG 11/25/2005 02/17/2012 INTRADERMAL NEVI (MELANOCYTIC)/// DARINEL SKIN TRUNK 11/25/2005 02/17/2012 SKIN TAG PAPILLOMAS///SKIN HYPERTRO/ATROPH NOS 0 11/25/2005 02/17/2012 Abdominal pain, unspecified site 10/25/2005 02/17/2012 Sprain of neck 07/05/2005 02/17/2012 FATTY INFILTRATION LIVER 05/14/2005 022 Other diseases of pharynx, not elsewhere classif ied(478.29) 04/14/2013 Unspecified hemorrhoids without mention of compl ication 04/14/2013 Overview: Hemorrhoids Lumbago 04/15/2014 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 Merino on recommendation of Dr. Angeline nath Last Assessment & Plan: She is on asacol for the past few months, it was started by Dr. Merino on recommendation of Dr. 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, estrogen receptor positive 06/03/2017 07/06/2021 Personal history of breast cancer 12/18/2016 04/09/2021 Overview: Added automatically from request for surgery [id number] Permanent atrial fibrillation 12/26/2015 Diverticulitis of large inte angélica without perforation or abscess without bleeding 11/17/2015 04/09/2021 Lymphedema of arm 10/16/2015 04/09/2021 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 female breast 08/04/2015 04/09/2021 Malignant neoplasm of right female breast 201504/09/2021 Overview: The patient had tamoxifen for 5 years and then a gap and resumed after getting cancer for the second time. Last Assessment & Plan: The patient had tamoxifen for 5 years and then a gap and resumed after getting cancer for the second time. Abnormal mammogram of right breast 07/17/2015 04/09/2021 Pain of both shoulder joints 02/21/2015 Other and unspecified noninf ectious gastroenteritis and colitis(558.9) 11/03/2014 11/03/2014 Other specified rheumatoid arthritis, multiple s ites 05/06/2014 07/01/2018 Overview: Dx: 2014 She is on methotrexate and plaquenil Last Assessment & Plan: Dx: 2014 She is on methotrexate and plaquenil Acne rosacea 11/07/2013 04/15/2014 Folliculitis 11/07/2013 04/15/2014 Inflamed seborrheic keratosis 11/07/2013 Xerosis cutis 11/07/2013 04/15/2014 Solar lentigo 11/07/2013 04/15/2014 Crowley angioma 11/07/2013 04/15/2014 Pruritus 11/07/2013 04/15/2014 Backache, unspecified 07/09/2013 04/15/2014 Cutaneous skin tags 12/12/2012 04/14/2013 Intradermal nevus 12/12/2012 04/14/2013 Melanocytic nevi of trunk 12/12/20122013 Dermatofibroma of lower leg 12/12/201203/18 Urinary tract infection 09/02/2012 04/15/19 15 Abdominal pain 09/02/2012 04/15/2014 C. difficile colitis 09/02/2012 04/15/2014 Diverticulitis of colon (wit hout mention of hemorrhage)(562.11) 06/15/2012 04/15/2014 Other Seborrheic Keratoses 05/29/201204/15 Actinic skin damage 05/29/2012 04/15/2014 Epidermal cyst: L upper side nose 06/01/2011 04/15/2014 Xerosis cutis 06/01/2011 04/14/2013 Eczema intertrigo 04/25/2011 04/15/2014 Eczematous dermatitis 04/25/2011 04/14/2013 Intertrigo: Irritant fold area dermatitis 201104/14/2013 Urgency of urination 02/13/2011 04/15/2014 Female stress incontinence 02/13/201104/15 Pain in joint, pelvic region and thigh 0 04/15/2014 Family history of malignant neoplasm of ovary 04/14/2013 Solar Lentigines 05/18/2009 04/14/2013 Crowley Angioma//Capillary Angioma 05/18/2009 04/14/2013 Melanocytic nevus of face 05/18/20092013 Melanocytic nevus of trunk 05/18/200904/14 SVT (supraventricular tachycardia) 03/31/2009 04/09/2021 Last Assessment & Plan: She is on coumadin, metoprolol. SEBORRHEIC KERATOSIS: IRRITATED//INFLAMED 11/24/ 2008 12/12/2012 Viral warts, unspecified 02/08/2008 013 Benign neoplasm of skin of o ther and unspecified parts of face 02/08/2008 12/12/2012 SEBACEOUS HYPERPLASIA//SEBACEOUS GLAND DIS NOS 1 04/09/2007 12/12/2012 Sebaceous cyst 02/08/2008 12/12/2012 Symptomatic menopausal or female climacteric sta tracy 02/04/2008 04/14/2013 Personal history of malignant neoplasm of breast 02/04/2008 04/15/2014 Other specified disorder of bladder 02/04/2008 02/13/2011 Nocturia 02/04/2008 04/15/2014 Episode Elevated Glucose after Steriod 8 04/15/2014 Diarrhea 10/14/2007 04/14/2013 Abdominal pain, left lower quadrant 10/08/2007 04/14/2013 MALIGN NEOPL BREAST NOS 08/18/2007 04/15/19 15 Postmenopausal atrophic vaginitis 07/28/2007 04/15/2014 HX BREAST CANCER 07/01/2007 04/09/2021 Overview: Summer of 2015, and 2007. On tamoxifen Last Assessment & Plan: summer, and 2007. On tamoxifen Lump or mass in breast 06/24/2007 4 HX OF TUBULAR ADENOMA 04/27/2007 04/09/2021 NEURALGIA///NERV ROOT/PLEXUS DIS NEC 03/25/2007 04/15/2014 XEROSIS///SEBACEOUS GLAND DIS NEC 03/25/2007 02/17/2012 Seborrheic dermatitis, unspecified 03/25/2007 02/17/2012 Palpitations 01/21/2006 02/17/2012 DEGENERATED DISK DISEASE LUMBOSACRAL-NO MYELOPAT HY 01/21/2006 02/17/2012 ELEVATED SGPT 01/21/2006 02/17/2012 SEBORRHEIC KERATOSES 11/25/2005 02/17/2012 ACTINIC DAMAGE//CHR SOLAR SKIN DAMAGE NOS 200502/17/2012 SURGICAL SCAR & FIBROSIS OF SKIN 11/25/2005 02/17/2012 DERMATOFIBROMAS///BENIGN DARINEL SKIN LEG 11/25/2005 02/17/2012 INTRADERMAL NEVI (MELANOCYTIC)/// DARINEL SKIN TRUNK 11/25/2005 02/17/2012 SKIN TAG PAPILLOMAS///SKIN HYPERTRO/ATROPH NOS 0 11/25/2005 02/17/2012 Abdominal pain, unspecified site 10/25/2005 02/17/2012 Sprain of neck 07/05/2005 02/17/2012 FATTY INFILTRATION LIVER 05/14/2005 022 Other diseases of pharynx, not elsewhere classif ied(478.29) 04/14/2013 Unspecified hemorrhoids without mention of compl ication 04/14/2013 Overview: Hemorrhoids Lumbago 04/15/2014 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 Merino on recommendation of Dr. Angeline nath Last Assessment & Plan: She is on asacol for the past few months, it was started by Dr. Merino on recommendation of Dr. 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, estrogen receptor positive 06/03/2017 07/06/2021 Personal history of breast cancer 12/18/2016 04/09/2021 Overview: Added automatically from request for surgery [id number] Permanent atrial fibrillation 12/26/2015 Diverticulitis of large inte angélica without perforation or abscess without bleeding 11/17/2015 04/09/2021 Lymphedema of arm 10/16/2015 04/09/2021 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 female breast 08/04/2015 04/09/2021 Malignant neoplasm of right female breast 201504/09/2021 Overview: The patient had tamoxifen for 5 years and then a gap and resumed after getting cancer for the second time. Last Assessment & Plan: The patient had tamoxifen for 5 years and then a gap and resumed after getting cancer for the second time. Abnormal mammogram of right breast 07/17/2015 04/09/2021 Pain of both shoulder joints 02/21/2015 Other and unspecified noninf ectious gastroenteritis and colitis(558.9) 11/03/2014 11/03/2014 Other specified rheumatoid arthritis, multiple s ites 05/06/2014 07/01/2018 Overview: Dx: 2014 She is on methotrexate and plaquenil Last Assessment & Plan: Dx: 2014 She is on methotrexate and plaquenil Acne rosacea 11/07/2013 04/15/2014 Folliculitis 11/07/2013 04/15/2014 Inflamed seborrheic keratosis 11/07/2013 Xerosis cutis 11/07/2013 04/15/2014 Solar lentigo 11/07/2013 04/15/2014 Crowley angioma 11/07/2013 04/15/2014 Pruritus 11/07/2013 04/15/2014 Backache, unspecified 07/09/2013 04/15/2014 Cutaneous skin tags 12/12/2012 04/14/2013 Intradermal nevus 12/12/2012 04/14/2013 Melanocytic nevi of trunk 12/12/20122013 Dermatofibroma of lower leg 12/12/201203/18 Urinary tract infection 09/02/2012 04/15/19 15 Abdominal pain 09/02/2012 04/15/2014 C. difficile colitis 09/02/2012 04/15/2014 Diverticulitis of colon (wit hout mention of hemorrhage)(562.11) 06/15/2012 04/15/2014 Other Seborrheic Keratoses 05/29/201204/15 Actinic skin damage 05/29/2012 04/15/2014 Epidermal cyst: L upper side nose 06/01/2011 04/15/2014 Xerosis cutis 06/01/2011 04/14/2013 Eczema intertrigo 04/25/2011 04/15/2014 Eczematous dermatitis 04/25/2011 04/14/2013 Intertrigo: Irritant fold area dermatitis 201104/14/2013 Urgency of urination 02/13/2011 04/15/2014 Female stress incontinence 02/13/201104/15 Pain in joint, pelvic region and thigh 0 04/15/2014 Family history of malignant neoplasm of ovary 04/14/2013 Solar Lentigines 05/18/2009 04/14/2013 Crowley Angioma//Capillary Angioma 05/18/2009 04/14/2013 Melanocytic nevus of face 05/18/20092013 Melanocytic nevus of trunk 05/18/200904/14 SVT (supraventricular tachycardia) 03/31/2009 04/09/2021 Last Assessment & Plan: She is on coumadin, metoprolol. SEBORRHEIC KERATOSIS: IRRITATED//INFLAMED 200712/12/2012 Viral warts, unspecified 02/08/2008 013 Benign neoplasm of skin of o ther and unspecified parts of face 02/08/2008 12/12/2012 SEBACEOUS HYPERPLASIA//SEBACEOUS GLAND DIS NOS 1 04/09/2007 12/12/2012 Sebaceous cyst 02/08/2008 12/12/2012 Symptomatic menopausal or female climacteric sta tracy 02/04/2008 04/14/2013 Personal history of malignant neoplasm of breast 02/04/2008 04/15/2014 Other specified disorder of bladder 02/04/2008 02/13/2011 Nocturia 02/04/2008 04/15/2014 Episode Elevated Glucose after Steriod 10/21/200 8 04/15/2014 Diarrhea 10/14/2007 04/14/2013 Abdominal pain, left lower quadrant 10/08/2007 04/14/2013 MALIGN NEOPL BREAST NOS 08/18/2007 04/15/19 15 Postmenopausal atrophic vaginitis 07/28/2007 04/15/2014 HX BREAST CANCER 07/01/2007 04/09/2021 Overview: summer, and 2007. On tamoxifen Last Assessment & Plan: summer, and 2007. On tamoxifen Lump or mass in breast 06/24/2007 4 HX OF TUBULAR ADENOMA 04/27/2007 04/09/2021 NEURALGIA///NERV ROOT/PLEXUS DIS NEC 03/25/2007 04/15/2014 XEROSIS///SEBACEOUS GLAND DIS NEC 03/25/2007 02/17/2012 Seborrheic dermatitis, unspecified 03/25/2007 02/17/2012 Palpitations 01/21/2006 02/17/2012 DEGENERATED DISK DISEASE LUMBOSACRAL-NO MYELOPAT HY 01/21/2006 02/17/2012 ELEVATED SGPT 01/21/2006 02/17/2012 SEBORRHEIC KERATOSES 11/25/2005 02/17/2012 ACTINIC DAMAGE//CHR SOLAR SKIN DAMAGE NOS 200502/17/2012 SURGICAL SCAR & FIBROSIS OF SKIN 11/25/2005 02/17/2012 DERMATOFIBROMAS///BENIGN DARINEL SKIN LEG 11/25/2005 02/17/2012 INTRADERMAL NEVI (MELANOCYTIC)/// DARINEL SKIN TRUNK 11/25/2005 02/17/2012 SKIN TAG PAPILLOMAS///SKIN HYPERTRO/ATROPH NOS 0 11/25/2005 02/17/2012 Abdominal pain, unspecified site 10/25/2005 02/17/2012 Sprain of neck 07/05/2005 02/17/2012 FATTY INFILTRATION LIVER 05/14/2005 022 Other diseases of pharynx, not elsewhere classif ied(478.29) 04/14/2013 Unspecified hemorrhoids without mention of compl ication 04/14/2013 Overview: Hemorrhoids Lumbago 04/15/2014 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 Merino on recommendation of Dr. Angeline nath Last Assessment & Plan: She is on asacol for the past few months, it was started by Dr. Merino on recommendation of Dr. 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, estrogen receptor positive 06/03/2017 07/06/2021 Personal history of breast cancer 12/18/2016 04/09/2021 Overview: Added automatically from request for surgery [id number] Permanent atrial fibrillation 12/26/2015 Diverticulitis of large inte angélica without perforation or abscess without bleeding 11/17/2015 04/09/2021 Lymphedema of arm 10/16/2015 04/09/2021 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 female breast 08/04/2015 04/09/2021 Malignant neoplasm of right female breast 201504/09/2021 Overview: The patient had tamoxifen for 5 years and then a gap and resumed after getting cancer for the second time. Last Assessment & Plan: The patient had tamoxifen for 5 years and then a gap and resumed after getting cancer for the second time. Abnormal mammogram of right breast 07/17/2015 04/09/2021 Pain of both shoulder joints 02/21/2015 Other and unspecified noninf ectious gastroenteritis and colitis(558.9) 11/03/2014 11/03/2014 Other specified rheumatoid arthritis, multiple s ites 05/06/2014 07/01/2018 Overview: Dx: 2014 She is on methotrexate and plaquenil Last Assessment & Plan: Dx: 2014 She is on methotrexate and plaquenil Acne rosacea 11/07/2013 04/15/2014 Folliculitis 11/07/2013 04/15/2014 Inflamed seborrheic keratosis 11/07/2013 Xerosis cutis 11/07/2013 04/15/2014 Solar lentigo 11/07/2013 04/15/2014 Crowley angioma 11/07/2013 04/15/2014 Pruritus 11/07/2013 04/15/2014 Backache, unspecified 07/09/2013 04/15/2014 Cutaneous skin tags 12/12/2012 04/14/2013 Intradermal nevus 12/12/2012 04/14/2013 Melanocytic nevi of trunk 12/12/20122013 Dermatofibroma of lower leg 12/12/201203/18 Urinary tract infection 09/02/2012 04/15/19 15 Abdominal pain 09/02/2012 04/15/2014 C. difficile colitis 09/02/2012 04/15/2014 Diverticulitis of colon (wit hout mention of hemorrhage)(562.11) 06/15/2012 04/15/2014 Other Seborrheic Keratoses 05/29/201204/15 Actinic skin damage 05/29/2012 04/15/2014 Epidermal cyst: L upper side nose 06/01/2011 04/15/2014 Xerosis cutis 06/01/2011 04/14/2013 Eczema intertrigo 04/25/2011 04/15/2014 Eczematous dermatitis 04/25/2011 04/14/2013 Intertrigo: Irritant fold area dermatitis 201104/14/2013 Urgency of urination 02/13/2011 04/15/2014 Female stress incontinence 02/13/201104/15 Pain in joint, pelvic region and thigh 0 04/15/2014 Family history of malignant neoplasm of ovary 04/14/2013 Solar Lentigines 05/18/2009 04/14/2013 Crowley Angioma//Capillary Angioma 05/18/2009 04/14/2013 Melanocytic nevus of face 05/18/20092013 Melanocytic nevus of trunk 05/18/200904/14 SVT (supraventricular tachycardia) 03/31/2009 04/09/2021 Last Assessment & Plan: She is on coumadin, metoprolol. SEBORRHEIC KERATOSIS: IRRITATED//INFLAMED 200712/12/2012 Viral warts, unspecified 02/08/2008 013 Benign neoplasm of skin of o ther and unspecified parts of face 02/08/2008 12/12/2012 SEBACEOUS HYPERPLASIA//SEBACEOUS GLAND DIS NOS 1 04/09/2007 12/12/2012 Sebaceous cyst 02/08/2008 12/12/2012 Symptomatic menopausal or female climacteric sta tracy 02/04/2008 04/14/2013 Personal history of malignant neoplasm of breast 02/04/2008 04/15/2014 Other specified disorder of bladder 02/04/2008 02/13/2011 Nocturia 02/04/2008 04/15/2014 Episode Elevated Glucose after Steriod 8 04/15/2014 Diarrhea 10/14/2007 04/14/2013 Abdominal pain, left lower quadrant 10/08/2007 04/14/2013 MALIGN NEOPL BREAST NOS 08/18/2007 04/15/19 15 Postmenopausal atrophic vaginitis 07/28/2007 04/15/2014 HX BREAST CANCER 07/01/2007 04/09/2021 Overview: Summer of 2015, and 2007. On tamoxifen Last Assessment & Plan: summer, and 2007. On tamoxifen Lump or mass in breast 06/24/2007 4 HX OF TUBULAR ADENOMA 04/27/2007 04/09/2021 NEURALGIA///NERV ROOT/PLEXUS DIS NEC 03/25/2007 04/15/2014 XEROSIS///SEBACEOUS GLAND DIS NEC 03/25/2007 02/17/2012 Seborrheic dermatitis, unspecified 03/25/2007 02/17/2012 Palpitations 01/21/2006 02/17/2012 DEGENERATED DISK DISEASE LUMBOSACRAL-NO MYELOPAT HY 01/21/2006 02/17/2012 ELEVATED SGPT 01/21/2006 02/17/2012 SEBORRHEIC KERATOSES 11/25/2005 02/17/2012 ACTINIC DAMAGE//CHR SOLAR SKIN DAMAGE NOS 200502/17/2012 SURGICAL SCAR & FIBROSIS OF SKIN 11/25/2005 02/17/2012 DERMATOFIBROMAS///BENIGN DARINEL SKIN LEG 11/25/2005 02/17/2012 INTRADERMAL NEVI (MELANOCYTIC)/// DARINEL SKIN TRUNK 11/25/2005 02/17/2012 SKIN TAG PAPILLOMAS///SKIN HYPERTRO/ATROPH NOS 0 11/25/2005 02/17/2012 Abdominal pain, unspecified site 10/25/2005 02/17/2012 Sprain of neck 07/05/2005 02/17/2012 FATTY INFILTRATION LIVER 05/14/2005 022 Other diseases of pharynx, not elsewhere classif ied(478.29) 04/14/2013 Unspecified hemorrhoids without mention of compl ication 04/14/2013 Overview: Hemorrhoids Lumbago 04/15/2014 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 Merino on recommendation of Dr. Angeline nath Last Assessment & Plan: She is on asacol for the past few months, it was started by Dr. Merino on recommendation of Dr. 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, estrogen receptor positive 06/03/2017 07/06/2021 Personal history of breast cancer 12/18/2016 04/09/2021 Overview: Added automatically from request for surgery [id number] Permanent atrial fibrillation 12/26/2015 Diverticulitis of large inte angélica without perforation or abscess without bleeding 11/17/2015 04/09/2021 Lymphedema of arm 10/16/2015 04/09/2021 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 female breast 08/04/2015 04/09/2021 Malignant neoplasm of right female breast 201504/09/2021 Overview: The patient had tamoxifen for 5 years and then a gap and resumed after getting cancer for the second time. Last Assessment & Plan: The patient had tamoxifen for 5 years and then a gap and resumed after getting cancer for the second time. Abnormal mammogram of right breast 07/17/2015 04/09/2021 Pain of both shoulder joints 02/21/2015 Other and unspecified noninf ectious gastroenteritis and colitis(558.9) 11/03/2014 11/03/2014 Other specified rheumatoid arthritis, multiple s ites 05/06/2014 07/01/2018 Overview: Dx: 2014 She is on methotrexate and plaquenil Last Assessment & Plan: Dx: 2014 She is on methotrexate and plaquenil Acne rosacea 11/07/2013 04/15/2014 Folliculitis 11/07/2013 04/15/2014 Inflamed seborrheic keratosis 11/07/2013 Xerosis cutis 11/07/2013 04/15/2014 Solar lentigo 11/07/2013 04/15/2014 Crowley angioma 11/07/2013 04/15/2014 Pruritus 11/07/2013 04/15/2014 Backache, unspecified 07/09/2013 04/15/2014 Cutaneous skin tags 12/12/2012 04/14/2013 Intradermal nevus 12/12/2012 04/14/2013 Melanocytic nevi of trunk 12/12/20122013 Dermatofibroma of lower leg 12/12/201203/18 Urinary tract infection 09/02/2012 04/15/19 Abdominal pain 09/02/2012 04/15/2014 C. difficile colitis 09/02/2012 04/15/2014 Diverticulitis of colon (wit hout mention of hemorrhage)(562.11) 06/15/2012 04/15/2014 Other Seborrheic Keratoses 05/29/201204/15 Actinic skin damage 05/29/2012 04/15/2014 Epidermal cyst: L upper side nose 06/01/2011 04/15/2014 Xerosis cutis 06/01/2011 04/14/2013 Eczema intertrigo 04/25/2011 04/15/2014 Eczematous dermatitis 04/25/2011 04/14/2013 Intertrigo: Irritant fold area dermatitis 201104/14/2013 Urgency of urination 02/13/2011 04/15/2014 Female stress incontinence 02/13/201104/15 Pain in joint, pelvic region and thigh 0 04/15/2014 Family history of malignant neoplasm of ovary 04/14/2013 Solar Lentigines 05/18/2009 04/14/2013 Crowley Angioma//Capillary Angioma 05/18/2009 04/14/2013 Melanocytic nevus of face 05/18/20092013 Melanocytic nevus of trunk 05/18/200904/14 SVT (supraventricular tachycardia) 03/31/2009 04/09/2021 Last Assessment & Plan: She is on coumadin, metoprolol. SEBORRHEIC KERATOSIS: IRRITATED//INFLAMED 200712/12/2012 Viral warts, unspecified 02/08/2008 013 Benign neoplasm of skin of o ther and unspecified parts of face 02/08/2008 12/12/2012 SEBACEOUS HYPERPLASIA//SEBACEOUS GLAND DIS NOS 1 04/09/2007 12/12/2012 Sebaceous cyst 02/08/2008 12/12/2012 Symptomatic menopausal or female climacteric sta tracy 02/04/2008 04/14/2013 Personal history of malignant neoplasm of breast 02/04/2008 04/15/2014 Other specified disorder of bladder 02/04/2008 02/13/2011 Nocturia 02/04/2008 04/15/2014 Episode Elevated Glucose after Steriod 8 04/15/2014 Diarrhea 10/14/2007 04/14/2013 Abdominal pain, left lower quadrant 10/08/2007 04/14/2013 MALIGN NEOPL BREAST NOS 08/18/2007 04/15/19 15 Postmenopausal atrophic vaginitis 07/28/2007 04/15/2014 HX BREAST CANCER 07/01/2007 04/09/2021 Overview: summer, and 2007. On tamoxifen Last Assessment & Plan: summer, and 2007. On tamoxifen Lump or mass in breast 06/24/2007 4 HX OF TUBULAR ADENOMA 04/27/2007 04/09/2021 NEURALGIA///NERV ROOT/PLEXUS DIS NEC 03/25/2007 04/15/2014 XEROSIS///SEBACEOUS GLAND DIS NEC 03/25/2007 02/17/2012 Seborrheic dermatitis, unspecified 03/25/2007 02/17/2012 Palpitations 01/21/2006 02/17/2012 DEGENERATED DISK DISEASE LUMBOSACRAL-NO MYELOPAT HY 01/21/2006 02/17/2012 ELEVATED SGPT 01/21/2006 02/17/2012 SEBORRHEIC KERATOSES 11/25/2005 02/17/2012 ACTINIC DAMAGE//CHR SOLAR SKIN DAMAGE NOS 200502/17/2012 SURGICAL SCAR & FIBROSIS OF SKIN 11/25/2005 02/17/2012 DERMATOFIBROMAS///BENIGN DARINEL SKIN LEG 11/25/2005 02/17/2012 INTRADERMAL NEVI (MELANOCYTIC)/// DARINEL SKIN TRUNK 11/25/2005 02/17/2012 SKIN TAG PAPILLOMAS///SKIN HYPERTRO/ATROPH NOS 0 11/25/2005 02/17/2012 Abdominal pain, unspecified site 10/25/2005 02/17/2012 Sprain of neck 07/05/2005 02/17/2012 FATTY INFILTRATION LIVER 05/14/2005 022 Other diseases of pharynx, not elsewhere classif ied(478.29) 04/14/2013 Unspecified hemorrhoids without mention of compl ication 04/14/2013 Overview: Hemorrhoids Lumbago 04/15/2014 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 Merino on recommendation of Dr. Angeline nath Last Assessment & Plan: She is on asacol for the past few months, it was started by Dr. Merino on recommendation of Dr. 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, estrogen receptor positive 06/03/2017 07/06/2021 Personal history of breast cancer 12/18/2016 04/09/2021 Overview: Added automatically from request for surgery [id number] Permanent atrial fibrillation 12/26/2015 Diverticulitis of large inte angélica without perforation or abscess without bleeding 11/17/2015 04/09/2021 Lymphedema of arm 10/16/2015 04/09/2021 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 female breast 08/04/2015 04/09/2021 Malignant neoplasm of right female breast 201504/09/2021 Overview: The patient had tamoxifen for 5 years and then a gap and resumed after getting cancer for the second time. Last Assessment & Plan: The patient had tamoxifen for 5 years and then a gap and resumed after getting cancer for the second time. Abnormal mammogram of right breast 07/17/2015 04/09/2021 Pain of both shoulder joints 02/21/2015 Other and unspecified noninf ectious gastroenteritis and colitis(558.9) 11/03/2014 11/03/2014 Other specified rheumatoid arthritis, multiple s ites 05/06/2014 07/01/2018 Overview: Dx: 2014 She is on methotrexate and plaquenil Last Assessment & Plan: Dx: 2014 She is on methotrexate and plaquenil Acne rosacea 11/07/2013 04/15/2014 Folliculitis 11/07/2013 04/15/2014 Inflamed seborrheic keratosis 11/07/2013 Xerosis cutis 11/07/2013 04/15/2014 Solar lentigo 11/07/2013 04/15/2014 Crowley angioma 11/07/2013 04/15/2014 Pruritus 11/07/2013 04/15/2014 Backache, unspecified 07/09/2013 04/15/2014 Cutaneous skin tags 12/12/2012 04/14/2013 Intradermal nevus 12/12/2012 04/14/2013 Melanocytic nevi of trunk 12/12/20122013 Dermatofibroma of lower leg 12/12/201203/18 Urinary tract infection 09/02/2012 04/15/19 15 Abdominal pain 09/02/2012 04/15/2014 C. difficile colitis 09/02/2012 04/15/2014 Diverticulitis of colon (wit hout mention of hemorrhage)(562.11) 06/15/2012 04/15/2014 Other Seborrheic Keratoses 05/29/201204/15 Actinic skin damage 05/29/2012 04/15/2014 Epidermal cyst: L upper side nose 06/01/2011 04/15/2014 Xerosis cutis 06/01/2011 04/14/2013 Eczema intertrigo 04/25/2011 04/15/2014 Eczematous dermatitis 04/25/2011 04/14/2013 Intertrigo: Irritant fold area dermatitis 201104/14/2013 Urgency of urination 02/13/2011 04/15/2014 Female stress incontinence 02/13/201104/15 Pain in joint, pelvic region and thigh 10/09/ 0 04/15/2014 Family history of malignant neoplasm of ovary 04/14/2013 Solar Lentigines 05/18/2009 04/14/2013 Crowley Angioma//Capillary Angioma 05/18/2009 04/14/2013 Melanocytic nevus of face 05/18/20092013 Melanocytic nevus of trunk 05/18/200904/14 SVT (supraventricular tachycardia) 03/31/2009 04/09/2021 Last Assessment & Plan: She is on coumadin, metoprolol. SEBORRHEIC KERATOSIS: IRRITATED//INFLAMED 200712/12/2012 Viral warts, unspecified 02/08/2008 013 Benign neoplasm of skin of o ther and unspecified parts of face 02/08/2008 12/12/2012 SEBACEOUS HYPERPLASIA//SEBACEOUS GLAND DIS NOS 1 04/09/2007 12/12/2012 Sebaceous cyst 02/08/2008 12/12/2012 Symptomatic menopausal or female climacteric sta tracy 02/04/2008 04/14/2013 Personal history of malignant neoplasm of breast 02/04/2008 04/15/2014 Other specified disorder of bladder 02/04/2008 02/13/2011 Nocturia 02/04/2008 04/15/2014 Episode Elevated Glucose after Steriod 8 04/15/2014 Diarrhea 10/14/2007 04/14/2013 Abdominal pain, left lower quadrant 10/08/2007 04/14/2013 MALIGN NEOPL BREAST NOS 08/18/2007 04/15/19 15 Postmenopausal atrophic vaginitis 07/28/2007 04/15/2014 HX BREAST CANCER 07/01/2007 04/09/2021 Overview: summer, and 2007. On tamoxifen Last Assessment & Plan: summer, and 2007. On tamoxifen Lump or mass in breast 06/24/2007 4 HX OF TUBULAR ADENOMA 04/27/2007 04/09/2021 NEURALGIA///NERV ROOT/PLEXUS DIS NEC 03/25/2007 04/15/2014 XEROSIS///SEBACEOUS GLAND DIS NEC 03/25/2007 02/17/2012 Seborrheic dermatitis, unspecified 03/25/2007 02/17/2012 Palpitations 01/21/2006 02/17/2012 DEGENERATED DISK DISEASE LUMBOSACRAL-NO MYELOPAT HY 01/21/2006 02/17/2012 ELEVATED SGPT 01/21/2006 02/17/2012 SEBORRHEIC KERATOSES 11/25/2005 02/17/2012 ACTINIC DAMAGE//CHR SOLAR SKIN DAMAGE NOS 200502/17/2012 SURGICAL SCAR & FIBROSIS OF SKIN 11/25/2005 02/17/2012 DERMATOFIBROMAS///BENIGN DARINEL SKIN LEG 11/25/2005 02/17/2012 INTRADERMAL NEVI (MELANOCYTIC)/// DARINEL SKIN TRUNK 11/25/2005 02/17/2012 SKIN TAG PAPILLOMAS///SKIN HYPERTRO/ATROPH NOS 0 11/25/2005 02/17/2012 Abdominal pain, unspecified site 10/25/2005 02/17/2012 Sprain of neck 07/05/2005 02/17/2012 FATTY INFILTRATION LIVER 05/14/2005 022 Other diseases of pharynx, not elsewhere classif ied(478.29) 04/14/2013 Unspecified hemorrhoids without mention of compl ication 04/14/2013 Overview: Hemorrhoids Lumbago 04/15/2014 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 Merino on recommendation of Dr. Angeline nath Last Assessment & Plan: She is on asacol for the past few months, it was started by Dr. Merino on recommendation of Dr. 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, estrogen receptor positive 06/03/2017 07/06/2021 Personal history of breast cancer 12/18/2016 04/09/2021 Overview: Added automatically from request for surgery [id number] Permanent atrial fibrillation 12/26/2015 Diverticulitis of large inte angélica without perforation or abscess without bleeding 11/17/2015 04/09/2021 Lymphedema of arm 10/16/2015 04/09/2021 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 female breast 08/04/2015 04/09/2021 Malignant neoplasm of right female breast 201504/09/2021 Overview: The patient had tamoxifen for 5 years and then a gap and resumed after getting cancer for the second time. Last Assessment & Plan: The patient had tamoxifen for 5 years and then a gap and resumed after getting cancer for the second time. Abnormal mammogram of right breast 07/17/2015 04/09/2021 Pain of both shoulder joints 02/21/2015 Other and unspecified noninf ectious gastroenteritis and colitis(558.9) 11/03/2014 11/03/2014 Other specified rheumatoid arthritis, multiple s ites 05/06/2014 07/01/2018 Overview: Dx: 2014 She is on methotrexate and plaquenil Last Assessment & Plan: Dx: 2014 She is on methotrexate and plaquenil Acne rosacea 11/07/2013 04/15/2014 Folliculitis 11/07/2013 04/15/2014 Inflamed seborrheic keratosis 11/07/2013 Xerosis cutis 11/07/2013 04/15/2014 Solar lentigo 11/07/2013 04/15/2014 Crowley angioma 11/07/2013 04/15/2014 Pruritus 11/07/2013 04/15/2014 Backache, unspecified 07/09/2013 04/15/2014 Cutaneous skin tags 12/12/2012 04/14/2013 Intradermal nevus 12/12/2012 04/14/2013 Melanocytic nevi of trunk 12/12/20122013 Dermatofibroma of lower leg 12/12/201203/18 Urinary tract infection 09/02/2012 04/15/19 15 Abdominal pain 09/02/2012 04/15/2014 C. difficile colitis 09/02/2012 04/15/2014 Diverticulitis of colon (wit hout mention of hemorrhage)(562.11) 06/15/2012 04/15/2014 Other Seborrheic Keratoses 05/29/201204/15 Actinic skin damage 05/29/2012 04/15/2014 Epidermal cyst: L upper side nose 06/01/2011 04/15/2014 Xerosis cutis 06/01/2011 04/14/2013 Eczema intertrigo 04/25/2011 04/15/2014 Eczematous dermatitis 04/25/2011 04/14/2013 Intertrigo: Irritant fold area dermatitis 201104/14/2013 Urgency of urination 02/13/2011 04/15/2014 Female stress incontinence 02/13/201104/15 Pain in joint, pelvic region and thigh 0 04/15/2014 Family history of malignant neoplasm of ovary 04/14/2013 Solar Lentigines 05/18/2009 04/14/2013 Crowley Angioma//Capillary Angioma 05/18/2009 04/14/2013 Melanocytic nevus of face 05/18/20092013 Melanocytic nevus of trunk 05/18/200904/14 SVT (supraventricular tachycardia) 03/31/2009 04/09/2021 Last Assessment & Plan: She is on coumadin, metoprolol. SEBORRHEIC KERATOSIS: IRRITATED//INFLAMED 200712/12/2012 Viral warts, unspecified 02/08/2008 013 Benign neoplasm of skin of o ther and unspecified parts of face 02/08/2008 12/12/2012 SEBACEOUS HYPERPLASIA//SEBACEOUS GLAND DIS NOS 1 04/09/2007 12/12/2012 Sebaceous cyst 02/08/2008 12/12/2012 Symptomatic menopausal or female climacteric sta tracy 02/04/2008 04/14/2013 Personal history of malignant neoplasm of breast 02/04/2008 04/15/2014 Other specified disorder of bladder 02/04/2008 02/13/2011 Nocturia 02/04/2008 04/15/2014 Episode Elevated Glucose after Steriod 8 04/15/2014 Diarrhea 10/14/2007 04/14/2013 Abdominal pain, left lower quadrant 10/08/2007 04/14/2013 MALIGN NEOPL BREAST NOS 08/18/2007 04/15/19 15 Postmenopausal atrophic vaginitis 07/28/2007 04/15/2014 HX BREAST CANCER 07/01/2007 04/09/2021 Overview: summer, and 2007. On tamoxifen Last Assessment & Plan: summer, and 2007. On tamoxifen Lump or mass in breast 06/24/2007 4 HX OF TUBULAR ADENOMA 04/27/2007 04/09/2021 NEURALGIA///NERV ROOT/PLEXUS DIS NEC 03/25/2007 04/15/2014 XEROSIS///SEBACEOUS GLAND DIS NEC 03/25/2007 02/17/2012 Seborrheic dermatitis, unspecified 03/25/2007 02/17/2012 Palpitations 01/21/2006 02/17/2012 DEGENERATED DISK DISEASE LUMBOSACRAL-NO MYELOPAT HY 01/21/2006 02/17/2012 ELEVATED SGPT 01/21/2006 02/17/2012 SEBORRHEIC KERATOSES 11/25/2005 02/17/2012 ACTINIC DAMAGE//CHR SOLAR SKIN DAMAGE NOS 200502/17/2012 SURGICAL SCAR & FIBROSIS OF SKIN 11/25/2005 02/17/2012 DERMATOFIBROMAS///BENIGN DARINEL SKIN LEG 11/25/2005 02/17/2012 INTRADERMAL NEVI (MELANOCYTIC)/// DARINEL SKIN TRUNK 11/25/2005 02/17/2012 SKIN TAG PAPILLOMAS///SKIN HYPERTRO/ATROPH NOS 0 11/25/2005 02/17/2012 Abdominal pain, unspecified site 10/25/2005 02/17/2012 Sprain of neck 07/05/2005 02/17/2012 FATTY INFILTRATION LIVER 05/14/2005 022 Other diseases of pharynx, not elsewhere classif ied(478.29) 04/14/2013 Unspecified hemorrhoids without mention of compl ication 04/14/2013 Overview: Hemorrhoids Lumbago 04/15/2014 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 Merino on recommendation of Dr. Angeline nath Last Assessment & Plan: She is on asacol for the past few months, it was started by Dr. Merino on recommendation of Dr. Angeline nath documented as of this encounter (statuses as of 12/11/2021) [facility]04-[facility]-2022 History of Past illness Narrative* Problem Noted Date Resolved Date Dysuria 07/06/2021 07/08/2021 Obesity, Class I, BMI 30-34.9 01/12/2021 GI bleed 01/12/2021 01/14/2021 Acute blood loss anemia 01/12/2021 01/15/20 LLQ pain 09/05/2017 04/09/2021 Overview: Added automatically from request for surgery [id number] 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, estrogen receptor positive 06/03/2017 07/06/2021 Personal history of breast cancer 12/18/2016 04/09/2021 Overview: Added automatically from request for surgery [id number] Permanent atrial fibrillation 12/26/2015 Diverticulitis of large inte angélica without perforation or abscess without bleeding 11/17/2015 04/09/2021 Lymphedema of arm 10/16/2015 04/09/2021 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 female breast 08/04/2015 04/09/2021 Malignant neoplasm of right female breast 201504/09/2021 Overview: The patient had tamoxifen for 5 years and then a gap and resumed after getting cancer for the second time. Last Assessment & Plan: The patient had tamoxifen for 5 years and then a gap and resumed after getting cancer for the second time. Abnormal mammogram of right breast 07/17/2015 04/09/2021 Pain of both shoulder joints 02/21/2015 Other and unspecified noninf ectious gastroenteritis and colitis(558.9) 11/03/2014 11/03/2014 Other specified rheumatoid arthritis, multiple s ites 05/06/2014 07/01/2018 Overview: Dx: 2014 She is on methotrexate and plaquenil Last Assessment & Plan: Dx: 2014 She is on methotrexate and plaquenil Acne rosacea 11/07/2013 04/15/2014 Folliculitis 11/07/2013 04/15/2014 Inflamed seborrheic keratosis 11/07/2013 Xerosis cutis 11/07/2013 04/15/2014 Solar lentigo 11/07/2013 04/15/2014 Crowley angioma 11/07/2013 04/15/2014 Pruritus 11/07/2013 04/15/2014 Backache, unspecified 07/09/2013 04/15/2014 Cutaneous skin tags 12/12/2012 04/14/2013 Intradermal nevus 12/12/2012 04/14/2013 Melanocytic nevi of trunk 12/12/20122013 Dermatofibroma of lower leg 12/12/201203/18 Urinary tract infection 09/02/2012 04/15/19 Abdominal pain 09/02/2012 04/15/2014 C. difficile colitis 09/02/2012 04/15/2014 Diverticulitis of colon (wit hout mention of hemorrhage)(562.11) 06/15/2012 04/15/2014 Other Seborrheic Keratoses 05/29/201204/15 Actinic skin damage 05/29/2012 04/15/2014 Epidermal cyst: L upper side nose 06/01/2011 04/15/2014 Xerosis cutis 06/01/2011 04/14/2013 Eczema intertrigo 04/25/2011 04/15/2014 Eczematous dermatitis 04/25/2011 04/14/2013 Intertrigo: Irritant fold area dermatitis 201104/14/2013 Urgency of urination 02/13/2011 04/15/2014 Female stress incontinence 02/13/201104/15 Pain in joint, pelvic region and thigh 0 04/15/2014 Family history of malignant neoplasm of ovary 04/14/2013 Solar Lentigines 05/18/2009 04/14/2013 Crowley Angioma//Capillary Angioma 05/18/2009 04/14/2013 Melanocytic nevus of face 05/18/20092013 Melanocytic nevus of trunk 05/18/200904/14 SVT (supraventricular tachycardia) 03/31/2009 04/09/2021 Last Assessment & Plan: She is on coumadin, metoprolol. SEBORRHEIC KERATOSIS: IRRITATED//INFLAMED 200712/12/2012 Viral warts, unspecified 02/08/2008 013 Benign neoplasm of skin of o ther and unspecified parts of face 02/08/2008 12/12/2012 SEBACEOUS HYPERPLASIA//SEBACEOUS GLAND DIS NOS 1 04/09/2007 12/12/2012 Sebaceous cyst 02/08/2008 12/12/2012 Symptomatic menopausal or female climacteric sta tracy 02/04/2008 04/14/2013 Personal history of malignant neoplasm of breast 02/04/2008 04/15/2014 Other specified disorder of bladder 02/04/2008 02/13/2011 Nocturia 02/04/2008 04/15/2014 Episode Elevated Glucose after Steriod 8 04/15/2014 Diarrhea 10/14/2007 04/14/2013 Abdominal pain, left lower quadrant 10/08/2007 04/14/2013 MALIGN NEOPL BREAST NOS 08/18/2007 04/15/19 15 Postmenopausal atrophic vaginitis 07/28/2007 04/15/2014 HX BREAST CANCER 07/01/2007 04/09/2021 Overview: Summer of 2015, and 2007. On tamoxifen Last Assessment & Plan: summer, and 2007. On tamoxifen Lump or mass in breast 06/24/2007 4 HX OF TUBULAR ADENOMA 04/27/2007 04/09/2021 NEURALGIA///NERV ROOT/PLEXUS DIS NEC 03/25/2007 04/15/2014 XEROSIS///SEBACEOUS GLAND DIS NEC 03/25/2007 02/17/2012 Seborrheic dermatitis, unspecified 03/25/2007 02/17/2012 Palpitations 01/21/2006 02/17/2012 DEGENERATED DISK DISEASE LUMBOSACRAL-NO MYELOPAT HY 01/21/2006 02/17/2012 ELEVATED SGPT 01/21/2006 02/17/2012 SEBORRHEIC KERATOSES 11/25/2005 02/17/2012 ACTINIC DAMAGE//CHR SOLAR SKIN DAMAGE NOS 200502/17/2012 SURGICAL SCAR & FIBROSIS OF SKIN 11/25/2005 02/17/2012 DERMATOFIBROMAS///BENIGN DARINEL SKIN LEG 11/25/2005 02/17/2012 INTRADERMAL NEVI (MELANOCYTIC)/// DARINEL SKIN TRUNK 11/25/2005 02/17/2012 SKIN TAG PAPILLOMAS///SKIN HYPERTRO/ATROPH NOS 0 11/25/2005 02/17/2012 Abdominal pain, unspecified site 10/25/2005 02/17/2012 Sprain of neck 07/05/2005 02/17/2012 FATTY INFILTRATION LIVER 05/14/2005 022 Other diseases of pharynx, not elsewhere classif ied(478.29) 04/14/2013 Unspecified hemorrhoids without mention of compl ication 04/14/2013 Overview: Hemorrhoids Lumbago 04/15/2014 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 Merino on recommendation of Dr. Angeline nath Last Assessment & Plan: She is on asacol for the past few months, it was started by Dr. Merino on recommendation of Dr. 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, estrogen receptor positive 06/03/2017 07/06/2021 Personal history of breast cancer 12/18/2016 04/09/2021 Overview: Added automatically from request for surgery [id number] Permanent atrial fibrillation 12/26/2015 Diverticulitis of large inte angélica without perforation or abscess without bleeding 11/17/2015 04/09/2021 Lymphedema of arm 10/16/2015 04/09/2021 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 female breast 08/04/2015 04/09/2021 Malignant neoplasm of right female breast 201504/09/2021 Overview: The patient had tamoxifen for 5 years and then a gap and resumed after getting cancer for the second time. Last Assessment & Plan: The patient had tamoxifen for 5 years and then a gap and resumed after getting cancer for the second time. Abnormal mammogram of right breast 07/17/2015 04/09/2021 Pain of both shoulder joints 02/21/2015 Other and unspecified noninf ectious gastroenteritis and colitis(558.9) 11/03/2014 11/03/2014 Other specified rheumatoid arthritis, multiple s ites 05/06/2014 07/01/2018 Overview: Dx: 2014 She is on methotrexate and plaquenil Last Assessment & Plan: Dx: 2014 She is on methotrexate and plaquenil Acne rosacea 11/07/2013 04/15/2014 Folliculitis 11/07/2013 04/15/2014 Inflamed seborrheic keratosis 11/07/2013 Xerosis cutis 11/07/2013 04/15/2014 Solar lentigo 11/07/2013 04/15/2014 Crowley angioma 11/07/2013 04/15/2014 Pruritus 11/07/2013 04/15/2014 Backache, unspecified 07/09/2013 04/15/2014 Cutaneous skin tags 12/12/2012 04/14/2013 Intradermal nevus 12/12/2012 04/14/2013 Melanocytic nevi of trunk 12/12/20122013 Dermatofibroma of lower leg 12/12/201203/18 Urinary tract infection 09/02/2012 04/15/19 15 Abdominal pain 09/02/2012 04/15/2014 C. difficile colitis 09/02/2012 04/15/2014 Diverticulitis of colon (wit hout mention of hemorrhage)(562.11) 06/15/2012 04/15/2014 Other Seborrheic Keratoses 05/29/201204/15 Actinic skin damage 05/29/2012 04/15/2014 Epidermal cyst: L upper side nose 06/01/2011 04/15/2014 Xerosis cutis 06/01/2011 04/14/2013 Eczema intertrigo 04/25/2011 04/15/2014 Eczematous dermatitis 04/25/2011 04/14/2013 Intertrigo: Irritant fold area dermatitis 201104/14/2013 Urgency of urination 02/13/2011 04/15/2014 Female stress incontinence 02/13/201104/15 Pain in joint, pelvic region and thigh 10/09/ 0 04/15/2014 Family history of malignant neoplasm of ovary 04/14/2013 Solar Lentigines 05/18/2009 04/14/2013 Crowley Angioma//Capillary Angioma 05/18/2009 04/14/2013 Melanocytic nevus of face 05/18/20092013 Melanocytic nevus of trunk 05/18/200904/14 SVT (supraventricular tachycardia) 03/31/2009 04/09/2021 Last Assessment & Plan: She is on coumadin, metoprolol. SEBORRHEIC KERATOSIS: IRRITATED//INFLAMED 200712/12/2012 Viral warts, unspecified 02/08/2008 013 Benign neoplasm of skin of o ther and unspecified parts of face 02/08/2008 12/12/2012 SEBACEOUS HYPERPLASIA//SEBACEOUS GLAND DIS NOS 1 04/09/2007 12/12/2012 Sebaceous cyst 02/08/2008 12/12/2012 Symptomatic menopausal or female climacteric sta tracy 02/04/2008 04/14/2013 Personal history of malignant neoplasm of breast 02/04/2008 04/15/2014 Other specified disorder of bladder 02/04/2008 02/13/2011 Nocturia 02/04/2008 04/15/2014 Episode Elevated Glucose after Steriod 8 04/15/2014 Diarrhea 10/14/2007 04/14/2013 Abdominal pain, left lower quadrant 10/08/2007 04/14/2013 MALIGN NEOPL BREAST NOS 08/18/2007 04/15/19 15 Postmenopausal atrophic vaginitis 07/28/2007 04/15/2014 HX BREAST CANCER 07/01/2007 04/09/2021 Overview: summer, and 2007. On tamoxifen Last Assessment & Plan: summer, and 2007. On tamoxifen Lump or mass in breast 06/24/2007 4 HX OF TUBULAR ADENOMA 04/27/2007 04/09/2021 NEURALGIA///NERV ROOT/PLEXUS DIS NEC 03/25/2007 04/15/2014 XEROSIS///SEBACEOUS GLAND DIS NEC 03/25/2007 02/17/2012 Seborrheic dermatitis, unspecified 03/25/2007 02/17/2012 Palpitations 01/21/2006 02/17/2012 DEGENERATED DISK DISEASE LUMBOSACRAL-NO MYELOPAT HY 01/21/2006 02/17/2012 ELEVATED SGPT 01/21/2006 02/17/2012 SEBORRHEIC KERATOSES 11/25/2005 02/17/2012 ACTINIC DAMAGE//CHR SOLAR SKIN DAMAGE NOS 200502/17/2012 SURGICAL SCAR & FIBROSIS OF SKIN 11/25/2005 02/17/2012 DERMATOFIBROMAS///BENIGN DARINEL SKIN LEG 11/25/2005 02/17/2012 INTRADERMAL NEVI (MELANOCYTIC)/// DARINEL SKIN TRUNK 11/25/2005 02/17/2012 SKIN TAG PAPILLOMAS///SKIN HYPERTRO/ATROPH NOS 0 11/25/2005 02/17/2012 Abdominal pain, unspecified site 10/25/2005 02/17/2012 Sprain of neck 07/05/2005 02/17/2012 FATTY INFILTRATION LIVER 05/14/2005 022 Other diseases of pharynx, not elsewhere classif ied(478.29) 04/14/2013 Unspecified hemorrhoids without mention of compl ication 04/14/2013 Overview: Hemorrhoids Lumbago 04/15/2014 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 Merino on recommendation of Dr. Angeline nath Last Assessment & Plan: She is on asacol for the past few months, it was started by Dr. Merino on recommendation of Dr. Angeline nath documented as of this encounter (statuses as of 01/02/2022) [facility] History of Past illness Narrative* Problem Noted Date Resolved Date Dysuria 07/06/2021 07/08/2021 Obesity, Class I, BMI 30-34.9 01/12/2021 GI bleed 01/12/2021 01/14/2021 Acute blood loss anemia 01/12/2021 01/15/20 21 LLQ pain 09/05/2017 04/09/2021 Overview: Added automatically from request for surgery [id number] 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, estrogen receptor positive 06/03/2017 07/06/2021 Personal history of breast cancer 12/18/2016 04/09/2021 Overview: Added automatically from request for surgery [id number] Permanent atrial fibrillation 12/26/2015 Diverticulitis of large inte angélica without perforation or abscess without bleeding 11/17/2015 04/09/2021 Lymphedema of arm 10/16/2015 04/09/2021 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 female breast 08/04/2015 04/09/2021 Malignant neoplasm of right female breast 201504/09/2021 Overview: The patient had tamoxifen for 5 years and then a gap and resumed after getting cancer for the second time. Last Assessment & Plan: The patient had tamoxifen for 5 years and then a gap and resumed after getting cancer for the second time. Abnormal mammogram of right breast 07/17/2015 04/09/2021 Pain of both shoulder joints 02/21/2015 Other and unspecified noninf ectious gastroenteritis and colitis(558.9) 11/03/2014 11/03/2014 Other specified rheumatoid arthritis, multiple s ites 05/06/2014 07/01/2018 Overview: Dx: 2014 She is on methotrexate and plaquenil Last Assessment & Plan: Dx: 2014 She is on methotrexate and plaquenil Acne rosacea 11/07/2013 04/15/2014 Folliculitis 11/07/2013 04/15/2014 Inflamed seborrheic keratosis 11/07/2013 Xerosis cutis 11/07/2013 04/15/2014 Solar lentigo 11/07/2013 04/15/2014 Crowley angioma 11/07/2013 04/15/2014 Pruritus 11/07/2013 04/15/2014 Backache, unspecified 07/09/2013 04/15/2014 Cutaneous skin tags 12/12/2012 04/14/2013 Intradermal nevus 12/12/2012 04/14/2013 Melanocytic nevi of trunk 12/12/20122013 Dermatofibroma of lower leg 12/12/201203/18 Urinary tract infection 09/02/2012 04/15/19 15 Abdominal pain 09/02/2012 04/15/2014 C. difficile colitis 09/02/2012 04/15/2014 Diverticulitis of colon (wit hout mention of hemorrhage)(562.11) 06/15/2012 04/15/2014 Other Seborrheic Keratoses 05/29/201204/15 Actinic skin damage 05/29/2012 04/15/2014 Epidermal cyst: L upper side nose 06/01/2011 04/15/2014 Xerosis cutis 06/01/2011 04/14/2013 Eczema intertrigo 04/25/2011 04/15/2014 Eczematous dermatitis 04/25/2011 04/14/2013 Intertrigo: Irritant fold area dermatitis 201104/14/2013 Urgency of urination 02/13/2011 04/15/2014 Female stress incontinence 02/13/201104/15 Pain in joint, pelvic region and thigh 0 04/15/2014 Family history of malignant neoplasm of ovary 04/14/2013 Solar Lentigines 05/18/2009 04/14/2013 Crowley Angioma//Capillary Angioma 05/18/2009 04/14/2013 Melanocytic nevus of face 05/18/20092013 Melanocytic nevus of trunk 05/18/200904/14 SVT (supraventricular tachycardia) 03/31/2009 04/09/2021 Last Assessment & Plan: She is on coumadin, metoprolol. SEBORRHEIC KERATOSIS: IRRITATED//INFLAMED 200712/12/2012 Viral warts, unspecified 02/08/2008 013 Benign neoplasm of skin of o ther and unspecified parts of face 02/08/2008 12/12/2012 SEBACEOUS HYPERPLASIA//SEBACEOUS GLAND DIS NOS 1 04/09/2007 12/12/2012 Sebaceous cyst 02/08/2008 12/12/2012 Symptomatic menopausal or female climacteric sta tracy 02/04/2008 04/14/2013 Personal history of malignant neoplasm of breast 02/04/2008 04/15/2014 Other specified disorder of bladder 02/04/2008 02/13/2011 Nocturia 02/04/2008 04/15/2014 Episode Elevated Glucose after Steriod 8 04/15/2014 Diarrhea 10/14/2007 04/14/2013 Abdominal pain, left lower quadrant 10/08/2007 04/14/2013 MALIGN NEOPL BREAST NOS 08/18/2007 04/15/19 15 Postmenopausal atrophic vaginitis 07/28/2007 04/15/2014 HX BREAST CANCER 07/01/2007 04/09/2021 Overview: summer, and 2007. On tamoxifen Last Assessment & Plan: summer, and 2007. On tamoxifen Lump or mass in breast 06/24/2007 4 HX OF TUBULAR ADENOMA 04/27/2007 04/09/2021 NEURALGIA///NERV ROOT/PLEXUS DIS NEC 03/25/2007 04/15/2014 XEROSIS///SEBACEOUS GLAND DIS NEC 03/25/2007 02/17/2012 Seborrheic dermatitis, unspecified 03/25/2007 02/17/2012 Palpitations 01/21/2006 02/17/2012 DEGENERATED DISK DISEASE LUMBOSACRAL-NO MYELOPAT HY 01/21/2006 02/17/2012 ELEVATED SGPT 01/21/2006 02/17/2012 SEBORRHEIC KERATOSES 11/25/2005 02/17/2012 ACTINIC DAMAGE//CHR SOLAR SKIN DAMAGE NOS 200502/17/2012 SURGICAL SCAR & FIBROSIS OF SKIN 11/25/2005 02/17/2012 DERMATOFIBROMAS///BENIGN DARINEL SKIN LEG 11/25/2005 02/17/2012 INTRADERMAL NEVI (MELANOCYTIC)/// DARINEL SKIN TRUNK 11/25/2005 02/17/2012 SKIN TAG PAPILLOMAS///SKIN HYPERTRO/ATROPH NOS 0 11/25/2005 02/17/2012 Abdominal pain, unspecified site 10/25/2005 02/17/2012 Sprain of neck 07/05/2005 02/17/2012 FATTY INFILTRATION LIVER 05/14/2005 022 Other diseases of pharynx, not elsewhere classif ied(478.29) 04/14/2013 Unspecified hemorrhoids without mention of compl ication 04/14/2013 Overview: Hemorrhoids Lumbago 04/15/2014 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 Merino on recommendation of Dr. Angeline nath Last Assessment & Plan: She is on asacol for the past few months, it was started by Dr. Merino on recommendation of Dr. Angeline nath documented as of this encounter (statuses as of 01/08/2022) [facility]04-[facility]-2022 History of Past illness Narrative* Problem Noted Date Resolved Date Dysuria 07/06/2021 07/08/2021 Obesity, Class I, BMI 30-34.9 01/12/2021 GI bleed 01/12/2021 01/14/2021 Acute blood loss anemia 01/12/2021 01/15/20 LLQ pain 09/05/2017 04/09/2021 Overview: Added automatically from request for surgery [id number] 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, estrogen receptor positive 06/03/2017 07/06/2021 Personal history of breast cancer 12/18/2016 04/09/2021 Overview: Added automatically from request for surgery [id number] Permanent atrial fibrillation 12/26/2015 Diverticulitis of large inte angélica without perforation or abscess without bleeding 11/17/2015 04/09/2021 Lymphedema of arm 10/16/2015 04/09/2021 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 female breast 08/04/2015 04/09/2021 Malignant neoplasm of right female breast 201504/09/2021 Overview: The patient had tamoxifen for 5 years and then a gap and resumed after getting cancer for the second time. Last Assessment & Plan: The patient had tamoxifen for 5 years and then a gap and resumed after getting cancer for the second time. Abnormal mammogram of right breast 07/17/2015 04/09/2021 Pain of both shoulder joints 02/21/2015 Other and unspecified noninf ectious gastroenteritis and colitis(558.9) 11/03/2014 11/03/2014 Other specified rheumatoid arthritis, multiple s ites 05/06/2014 07/01/2018 Overview: Dx: 2014 She is on methotrexate and plaquenil Last Assessment & Plan: Dx: 2014 She is on methotrexate and plaquenil Acne rosacea 11/07/2013 04/15/2014 Folliculitis 11/07/2013 04/15/2014 Inflamed seborrheic keratosis 11/07/2013 Xerosis cutis 11/07/2013 04/15/2014 Solar lentigo 11/07/2013 04/15/2014 Crowley angioma 11/07/2013 04/15/2014 Pruritus 11/07/2013 04/15/2014 Backache, unspecified 07/09/2013 04/15/2014 Cutaneous skin tags 12/12/2012 04/14/2013 Intradermal nevus 12/12/2012 04/14/2013 Melanocytic nevi of trunk 12/12/20122013 Dermatofibroma of lower leg 12/12/201203/18 Urinary tract infection 09/02/2012 04/15/19 15 Abdominal pain 09/02/2012 04/15/2014 C. difficile colitis 09/02/2012 04/15/2014 Diverticulitis of colon (wit hout mention of hemorrhage)(562.11) 06/15/2012 04/15/2014 Other Seborrheic Keratoses 05/29/201204/15 Actinic skin damage 05/29/2012 04/15/2014 Epidermal cyst: L upper side nose 06/01/2011 04/15/2014 Xerosis cutis 06/01/2011 04/14/2013 Eczema intertrigo 04/25/2011 04/15/2014 Eczematous dermatitis 04/25/2011 04/14/2013 Intertrigo: Irritant fold area dermatitis 201104/14/2013 Urgency of urination 02/13/2011 04/15/2014 Female stress incontinence 02/13/201104/15 Pain in joint, pelvic region and thigh 0 04/15/2014 Family history of malignant neoplasm of ovary 04/14/2013 Solar Lentigines 05/18/2009 04/14/2013 Crowley Angioma//Capillary Angioma 05/18/2009 04/14/2013 Melanocytic nevus of face 05/18/20092013 Melanocytic nevus of trunk 05/18/200904/14 SVT (supraventricular tachycardia) 03/31/2009 04/09/2021 Last Assessment & Plan: She is on coumadin, metoprolol. SEBORRHEIC KERATOSIS: IRRITATED//INFLAMED 200712/12/2012 Viral warts, unspecified 02/08/2008 013 Benign neoplasm of skin of o ther and unspecified parts of face 02/08/2008 12/12/2012 SEBACEOUS HYPERPLASIA//SEBACEOUS GLAND DIS NOS 1 04/09/2007 12/12/2012 Sebaceous cyst 02/08/2008 12/12/2012 Symptomatic menopausal or female climacteric sta tracy 02/04/2008 04/14/2013 Personal history of malignant neoplasm of breast 02/04/2008 04/15/2014 Other specified disorder of bladder 02/04/2008 02/13/2011 Nocturia 02/04/2008 04/15/2014 Episode Elevated Glucose after Steriod 8 04/15/2014 Diarrhea 10/14/2007 04/14/2013 Abdominal pain, left lower quadrant 10/08/2007 04/14/2013 MALIGN NEOPL BREAST NOS 08/18/2007 04/15/19 15 Postmenopausal atrophic vaginitis 07/28/2007 04/15/2014 HX BREAST CANCER 07/01/2007 04/09/2021 Overview: Summer of 2015, and 2007. On tamoxifen Last Assessment & Plan: summer, and 2007. On tamoxifen Lump or mass in breast 06/24/2007 4 HX OF TUBULAR ADENOMA 04/27/2007 04/09/2021 NEURALGIA///NERV ROOT/PLEXUS DIS NEC 03/25/2007 04/15/2014 XEROSIS///SEBACEOUS GLAND DIS NEC 03/25/2007 02/17/2012 Seborrheic dermatitis, unspecified 03/25/2007 02/17/2012 Palpitations 01/21/2006 02/17/2012 DEGENERATED DISK DISEASE LUMBOSACRAL-NO MYELOPAT HY 01/21/2006 02/17/2012 ELEVATED SGPT 01/21/2006 02/17/2012 SEBORRHEIC KERATOSES 11/25/2005 02/17/2012 ACTINIC DAMAGE//CHR SOLAR SKIN DAMAGE NOS 200502/17/2012 SURGICAL SCAR & FIBROSIS OF SKIN 11/25/2005 02/17/2012 DERMATOFIBROMAS///BENIGN DARINEL SKIN LEG 11/25/2005 02/17/2012 INTRADERMAL NEVI (MELANOCYTIC)/// DARINEL SKIN TRUNK 11/25/2005 02/17/2012 SKIN TAG PAPILLOMAS///SKIN HYPERTRO/ATROPH NOS 0 11/25/2005 02/17/2012 Abdominal pain, unspecified site 10/25/2005 02/17/2012 Sprain of neck 07/05/2005 02/17/2012 FATTY INFILTRATION LIVER 05/14/2005 022 Other diseases of pharynx, not elsewhere classif ied(478.29) 04/14/2013 Unspecified hemorrhoids without mention of compl ication 04/14/2013 Overview: Hemorrhoids Lumbago 04/15/2014 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 Merino on recommendation of Dr. Angeline nath Last Assessment & Plan: She is on asacol for the past few months, it was started by Dr. Merino on recommendation of Dr. 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, estrogen receptor positive 06/03/2017 07/06/2021 Personal history of breast cancer 12/18/2016 04/09/2021 Overview: Added automatically from request for surgery [id number] Permanent atrial fibrillation 12/26/2015 Diverticulitis of large inte angélica without perforation or abscess without bleeding 11/17/2015 04/09/2021 Lymphedema of arm 10/16/2015 04/09/2021 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 female breast 08/04/2015 04/09/2021 Malignant neoplasm of right female breast 201504/09/2021 Overview: The patient had tamoxifen for 5 years and then a gap and resumed after getting cancer for the second time. Last Assessment & Plan: The patient had tamoxifen for 5 years and then a gap and resumed after getting cancer for the second time. Abnormal mammogram of right breast 07/17/2015 04/09/2021 Pain of both shoulder joints 02/21/2015 Other and unspecified noninf ectious gastroenteritis and colitis(558.9) 11/03/2014 11/03/2014 Other specified rheumatoid arthritis, multiple s ites 05/06/2014 07/01/2018 Overview: Dx: 2014 She is on methotrexate and plaquenil Last Assessment & Plan: Dx: 2014 She is on methotrexate and plaquenil Acne rosacea 11/07/2013 04/15/2014 Folliculitis 11/07/2013 04/15/2014 Inflamed seborrheic keratosis 11/07/2013 Xerosis cutis 11/07/2013 04/15/2014 Solar lentigo 11/07/2013 04/15/2014 Crowley angioma 11/07/2013 04/15/2014 Pruritus 11/07/2013 04/15/2014 Backache, unspecified 07/09/2013 04/15/2014 Cutaneous skin tags 12/12/2012 04/14/2013 Intradermal nevus 12/12/2012 04/14/2013 Melanocytic nevi of trunk 12/12/20122013 Dermatofibroma of lower leg 12/12/201203/18 Urinary tract infection 09/02/2012 04/15/19 15 Abdominal pain 09/02/2012 04/15/2014 C. difficile colitis 09/02/2012 04/15/2014 Diverticulitis of colon (wit hout mention of hemorrhage)(562.11) 06/15/2012 04/15/2014 Other Seborrheic Keratoses 05/29/201204/15 Actinic skin damage 05/29/2012 04/15/2014 Epidermal cyst: L upper side nose 06/01/2011 04/15/2014 Xerosis cutis 06/01/2011 04/14/2013 Eczema intertrigo 04/25/2011 04/15/2014 Eczematous dermatitis 04/25/2011 04/14/2013 Intertrigo: Irritant fold area dermatitis 201104/14/2013 Urgency of urination 02/13/2011 04/15/2014 Female stress incontinence 02/13/201104/15 Pain in joint, pelvic region and thigh 0 04/15/2014 Family history of malignant neoplasm of ovary 04/14/2013 Solar Lentigines 05/18/2009 04/14/2013 Crowley Angioma//Capillary Angioma 05/18/2009 04/14/2013 Melanocytic nevus of face 05/18/20092013 Melanocytic nevus of trunk 05/18/200904/14 SVT (supraventricular tachycardia) 03/31/2009 04/09/2021 Last Assessment & Plan: She is on coumadin, metoprolol. SEBORRHEIC KERATOSIS: IRRITATED//INFLAMED 200712/12/2012 Viral warts, unspecified 02/08/2008 013 Benign neoplasm of skin of o ther and unspecified parts of face 02/08/2008 12/12/2012 SEBACEOUS HYPERPLASIA//SEBACEOUS GLAND DIS NOS 1 04/09/2007 12/12/2012 Sebaceous cyst 02/08/2008 12/12/2012 Symptomatic menopausal or female climacteric sta tracy 02/04/2008 04/14/2013 Personal history of malignant neoplasm of breast 02/04/2008 04/15/2014 Other specified disorder of bladder 02/04/2008 02/13/2011 Nocturia 02/04/2008 04/15/2014 Episode Elevated Glucose after Steriod 8 04/15/2014 Diarrhea 10/14/2007 04/14/2013 Abdominal pain, left lower quadrant 10/08/2007 04/14/2013 MALIGN NEOPL BREAST NOS 08/18/2007 04/15/19 15 Postmenopausal atrophic vaginitis 07/28/2007 04/15/2014 HX BREAST CANCER 07/01/2007 04/09/2021 Overview: summer, and 2007. On tamoxifen Last Assessment & Plan: summer, and 2007. On tamoxifen Lump or mass in breast 06/24/2007 4 HX OF TUBULAR ADENOMA 04/27/2007 04/09/2021 NEURALGIA///NERV ROOT/PLEXUS DIS NEC 03/25/2007 04/15/2014 XEROSIS///SEBACEOUS GLAND DIS NEC 03/25/2007 02/17/2012 Seborrheic dermatitis, unspecified 03/25/2007 02/17/2012 Palpitations 01/21/2006 02/17/2012 DEGENERATED DISK DISEASE LUMBOSACRAL-NO MYELOPAT HY 01/21/2006 02/17/2012 ELEVATED SGPT 01/21/2006 02/17/2012 SEBORRHEIC KERATOSES 11/25/2005 02/17/2012 ACTINIC DAMAGE//CHR SOLAR SKIN DAMAGE NOS 200502/17/2012 SURGICAL SCAR & FIBROSIS OF SKIN 11/25/2005 02/17/2012 DERMATOFIBROMAS///BENIGN DARINEL SKIN LEG 11/25/2005 02/17/2012 INTRADERMAL NEVI (MELANOCYTIC)/// DARINEL SKIN TRUNK 11/25/2005 02/17/2012 SKIN TAG PAPILLOMAS///SKIN HYPERTRO/ATROPH NOS 0 11/25/2005 02/17/2012 Abdominal pain, unspecified site 10/25/2005 02/17/2012 Sprain of neck 07/05/2005 02/17/2012 FATTY INFILTRATION LIVER 05/14/2005 022 Other diseases of pharynx, not elsewhere classif ied(478.29) 04/14/2013 Unspecified hemorrhoids without mention of compl ication 04/14/2013 Overview: Hemorrhoids Lumbago 04/15/2014 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 Merino on recommendation of Dr. Angeline nath Last Assessment & Plan: She is on asacol for the past few months, it was started by Dr. Merino on recommendation of Dr. 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, estrogen receptor positive 06/03/2017 07/06/2021 Personal history of breast cancer 12/18/2016 04/09/2021 Overview: Added automatically from request for surgery [id number] Permanent atrial fibrillation 12/26/2015 Diverticulitis of large inte angélica without perforation or abscess without bleeding 11/17/2015 04/09/2021 Lymphedema of arm 10/16/2015 04/09/2021 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 female breast 08/04/2015 04/09/2021 Malignant neoplasm of right female breast 05/09/ 2016 04/09/2021 Overview: The patient had tamoxifen for 5 years and then a gap and resumed after getting cancer for the second time. Last Assessment & Plan: The patient had tamoxifen for 5 years and then a gap and resumed after getting cancer for the second time. Abnormal mammogram of right breast 07/17/2015 04/09/2021 Pain of both shoulder joints 02/21/2015 Other and unspecified noninf ectious gastroenteritis and colitis(558.9) 11/03/2014 11/03/2014 Other specified rheumatoid arthritis, multiple s ites 05/06/2014 07/01/2018 Overview: Dx: 2014 She is on methotrexate and plaquenil Last Assessment & Plan: Dx: 2014 She is on methotrexate and plaquenil Acne rosacea 11/07/2013 04/15/2014 Folliculitis 11/07/2013 04/15/2014 Inflamed seborrheic keratosis 11/07/2013 Xerosis cutis 11/07/2013 04/15/2014 Solar lentigo 11/07/2013 04/15/2014 Crowley angioma 11/07/2013 04/15/2014 Pruritus 11/07/2013 04/15/2014 Backache, unspecified 07/09/2013 04/15/2014 Cutaneous skin tags 12/12/2012 04/14/2013 Intradermal nevus 12/12/2012 04/14/2013 Melanocytic nevi of trunk 12/12/20122013 Dermatofibroma of lower leg 12/12/201203/18 Urinary tract infection 09/02/2012 04/15/19 15 Abdominal pain 09/02/2012 04/15/2014 C. difficile colitis 09/02/2012 04/15/2014 Diverticulitis of colon (wit hout mention of hemorrhage)(562.11) 06/15/2012 04/15/2014 Other Seborrheic Keratoses 05/29/201204/15 Actinic skin damage 05/29/2012 04/15/2014 Epidermal cyst: L upper side nose 06/01/2011 04/15/2014 Xerosis cutis 06/01/2011 04/14/2013 Eczema intertrigo 04/25/2011 04/15/2014 Eczematous dermatitis 04/25/2011 04/14/2013 Intertrigo: Irritant fold area dermatitis 201104/14/2013 Urgency of urination 02/13/2011 04/15/2014 Female stress incontinence 02/13/201104/15 Pain in joint, pelvic region and thigh 0 04/15/2014 Family history of malignant neoplasm of ovary 04/14/2013 Solar Lentigines 05/18/2009 04/14/2013 Crowley Angioma//Capillary Angioma 05/18/2009 04/14/2013 Melanocytic nevus of face 05/18/20092013 Melanocytic nevus of trunk 05/18/200904/14 SVT (supraventricular tachycardia) 03/31/2009 04/09/2021 Last Assessment & Plan: She is on coumadin, metoprolol. SEBORRHEIC KERATOSIS: IRRITATED//INFLAMED 200712/12/2012 Viral warts, unspecified 02/08/2008 013 Benign neoplasm of skin of o ther and unspecified parts of face 02/08/2008 12/12/2012 SEBACEOUS HYPERPLASIA//SEBACEOUS GLAND DIS NOS 1 04/09/2007 12/12/2012 Sebaceous cyst 02/08/2008 12/12/2012 Symptomatic menopausal or female climacteric sta tracy 02/04/2008 04/14/2013 Personal history of malignant neoplasm of breast 02/04/2008 04/15/2014 Other specified disorder of bladder 02/04/2008 02/13/2011 Nocturia 02/04/2008 04/15/2014 Episode Elevated Glucose after Steriod 10/21/ 8 04/15/2014 Diarrhea 10/14/2007 04/14/2013 Abdominal pain, left lower quadrant 10/08/2007 04/14/2013 MALIGN NEOPL BREAST NOS 08/18/2007 04/15/19 15 Postmenopausal atrophic vaginitis 07/28/2007 04/15/2014 HX BREAST CANCER 07/01/2007 04/09/2021 Overview: Summer of 2015, and 2007. On tamoxifen Last Assessment & Plan: Summer of 2015, and 2007. On tamoxifen Lump or mass in breast 06/24/2007 4 HX OF TUBULAR ADENOMA 04/27/2007 04/09/2021 NEURALGIA///NERV ROOT/PLEXUS DIS NEC 03/25/2007 04/15/2014 XEROSIS///SEBACEOUS GLAND DIS NEC 03/25/2007 02/17/2012 Seborrheic dermatitis, unspecified 03/25/2007 02/17/2012 Palpitations 01/21/2006 02/17/2012 DEGENERATED DISK DISEASE LUMBOSACRAL-NO MYELOPAT HY 01/21/2006 02/17/2012 ELEVATED SGPT 01/21/2006 02/17/2012 SEBORRHEIC KERATOSES 11/25/2005 02/17/2012 ACTINIC DAMAGE//CHR SOLAR SKIN DAMAGE NOS 200502/17/2012 SURGICAL SCAR & FIBROSIS OF SKIN 11/25/2005 02/17/2012 DERMATOFIBROMAS///BENIGN DARINEL SKIN LEG 11/25/2005 02/17/2012 INTRADERMAL NEVI (MELANOCYTIC)/// DARINEL SKIN TRUNK 11/25/2005 02/17/2012 SKIN TAG PAPILLOMAS///SKIN HYPERTRO/ATROPH NOS 0 11/25/2005 02/17/2012 Abdominal pain, unspecified site 10/25/2005 02/17/2012 Sprain of neck 07/05/2005 02/17/2012 FATTY INFILTRATION LIVER 05/14/2005 022 Other diseases of pharynx, not elsewhere classif ied(478.29) 04/14/2013 Unspecified hemorrhoids without mention of compl ication 04/14/2013 Overview: Hemorrhoids Lumbago 04/15/2014 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 Merino on recommendation of Dr. Angeline nath Last Assessment & Plan: She is on asacol for the past few months, it was started by Dr. Merino on recommendation of Dr. 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, estrogen receptor positive 06/03/2017 07/06/2021 Personal history of breast cancer 12/18/2016 04/09/2021 Overview: Added automatically from request for surgery [id number] Permanent atrial fibrillation 12/26/2015 Diverticulitis of large inte angélica without perforation or abscess without bleeding 11/17/2015 04/09/2021 Lymphedema of arm 10/16/2015 04/09/2021 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 female breast 08/04/2015 04/09/2021 Malignant neoplasm of right female breast 201504/09/2021 Overview: The patient had tamoxifen for 5 years and then a gap and resumed after getting cancer for the second time. Last Assessment & Plan: The patient had tamoxifen for 5 years and then a gap and resumed after getting cancer for the second time. Abnormal mammogram of right breast 07/17/2015 04/09/2021 Pain of both shoulder joints 02/21/2015 Other and unspecified noninf ectious gastroenteritis and colitis(558.9) 11/03/2014 11/03/2014 Other specified rheumatoid arthritis, multiple s ites 05/06/2014 07/01/2018 Overview: Dx: 2014 She is on methotrexate and plaquenil Last Assessment & Plan: Dx: 2014 She is on methotrexate and plaquenil Acne rosacea 11/07/2013 04/15/2014 Folliculitis 11/07/2013 04/15/2014 Inflamed seborrheic keratosis 11/07/2013 Xerosis cutis 11/07/2013 04/15/2014 Solar lentigo 11/07/2013 04/15/2014 Crowley angioma 11/07/2013 04/15/2014 Pruritus 11/07/2013 04/15/2014 Backache, unspecified 07/09/2013 04/15/2014 Cutaneous skin tags 12/12/2012 04/14/2013 Intradermal nevus 12/12/2012 04/14/2013 Melanocytic nevi of trunk 12/12/20122013 Dermatofibroma of lower leg 12/12/201203/18 Urinary tract infection 09/02/2012 04/15/19 15 Abdominal pain 09/02/2012 04/15/2014 C. difficile colitis 09/02/2012 04/15/2014 Diverticulitis of colon (wit hout mention of hemorrhage)(562.11) 06/15/2012 04/15/2014 Other Seborrheic Keratoses 05/29/201204/15 Actinic skin damage 05/29/2012 04/15/2014 Epidermal cyst: L upper side nose 06/01/2011 04/15/2014 Xerosis cutis 06/01/2011 04/14/2013 Eczema intertrigo 04/25/2011 04/15/2014 Eczematous dermatitis 04/25/2011 04/14/2013 Intertrigo: Irritant fold area dermatitis 201104/14/2013 Urgency of urination 02/13/2011 04/15/2014 Female stress incontinence 02/13/201104/15 Pain in joint, pelvic region and thigh 0 04/15/2014 Family history of malignant neoplasm of ovary 04/14/2013 Solar Lentigines 05/18/2009 04/14/2013 Crowley Angioma//Capillary Angioma 05/18/2009 04/14/2013 Melanocytic nevus of face 05/18/20092013 Melanocytic nevus of trunk 05/18/200904/14 SVT (supraventricular tachycardia) 03/31/2009 04/09/2021 Last Assessment & Plan: She is on coumadin, metoprolol. SEBORRHEIC KERATOSIS: IRRITATED//INFLAMED 200712/12/2012 Viral warts, unspecified 02/08/2008 013 Benign neoplasm of skin of o ther and unspecified parts of face 02/08/2008 12/12/2012 SEBACEOUS HYPERPLASIA//SEBACEOUS GLAND DIS NOS 1 04/09/2007 12/12/2012 Sebaceous cyst 02/08/2008 12/12/2012 Symptomatic menopausal or female climacteric sta tracy 02/04/2008 04/14/2013 Personal history of malignant neoplasm of breast 02/04/2008 04/15/2014 Other specified disorder of bladder 02/04/2008 02/13/2011 Nocturia 02/04/2008 04/15/2014 Episode Elevated Glucose after Steriod 8 04/15/2014 Diarrhea 10/14/2007 04/14/2013 Abdominal pain, left lower quadrant 10/08/2007 04/14/2013 MALIGN NEOPL BREAST NOS 08/18/2007 04/15/19 15 Postmenopausal atrophic vaginitis 07/28/2007 04/15/2014 HX BREAST CANCER 07/01/2007 04/09/2021 Overview: Summer of 2015, and 2007. On tamoxifen Last Assessment & Plan: summer, and 2007. On tamoxifen Lump or mass in breast 06/24/2007 4 HX OF TUBULAR ADENOMA 04/27/2007 04/09/2021 NEURALGIA///NERV ROOT/PLEXUS DIS NEC 03/25/2007 04/15/2014 XEROSIS///SEBACEOUS GLAND DIS NEC 03/25/2007 02/17/2012 Seborrheic dermatitis, unspecified 03/25/2007 02/17/2012 Palpitations 01/21/2006 02/17/2012 DEGENERATED DISK DISEASE LUMBOSACRAL-NO MYELOPAT HY 01/21/2006 02/17/2012 ELEVATED SGPT 01/21/2006 02/17/2012 SEBORRHEIC KERATOSES 11/25/2005 02/17/2012 ACTINIC DAMAGE//CHR SOLAR SKIN DAMAGE NOS 200502/17/2012 SURGICAL SCAR & FIBROSIS OF SKIN 11/25/2005 02/17/2012 DERMATOFIBROMAS///BENIGN DARINEL SKIN LEG 11/25/2005 02/17/2012 INTRADERMAL NEVI (MELANOCYTIC)/// DARINEL SKIN TRUNK 11/25/2005 02/17/2012 SKIN TAG PAPILLOMAS///SKIN HYPERTRO/ATROPH NOS 0 11/25/2005 02/17/2012 Abdominal pain, unspecified site 10/25/2005 02/17/2012 Sprain of neck 07/05/2005 02/17/2012 FATTY INFILTRATION LIVER 05/14/2005 022 Other diseases of pharynx, not elsewhere classif ied(478.29) 04/14/2013 Unspecified hemorrhoids without mention of compl ication 04/14/2013 Overview: Hemorrhoids Lumbago 04/15/2014 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 Merino on recommendation of Dr. Angeline nath Last Assessment & Plan: She is on asacol for the past few months, it was started by Dr. Merino on recommendation of Dr. 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, estrogen receptor positive 06/03/2017 07/06/2021 Personal history of breast cancer 12/18/2016 04/09/2021 Overview: Added automatically from request for surgery [id number] Permanent atrial fibrillation 12/26/2015 Diverticulitis of large inte angélica without perforation or abscess without bleeding 11/17/2015 04/09/2021 Lymphedema of arm 10/16/2015 04/09/2021 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 female breast 08/04/2015 04/09/2021 Malignant neoplasm of right female breast 201504/09/2021 Overview: The patient had tamoxifen for 5 years and then a gap and resumed after getting cancer for the second time. Last Assessment & Plan: The patient had tamoxifen for 5 years and then a gap and resumed after getting cancer for the second time. Abnormal mammogram of right breast 07/17/2015 04/09/2021 Pain of both shoulder joints 02/21/2015 Other and unspecified noninf ectious gastroenteritis and colitis(558.9) 11/03/2014 11/03/2014 Other specified rheumatoid arthritis, multiple s ites 05/06/2014 07/01/2018 Overview: Dx: 2014 She is on methotrexate and plaquenil Last Assessment & Plan: Dx: 2014 She is on methotrexate and plaquenil Acne rosacea 11/07/2013 04/15/2014 Folliculitis 11/07/2013 04/15/2014 Inflamed seborrheic keratosis 11/07/2013 Xerosis cutis 11/07/2013 04/15/2014 Solar lentigo 11/07/2013 04/15/2014 Crowley angioma 11/07/2013 04/15/2014 Pruritus 11/07/2013 04/15/2014 Backache, unspecified 07/09/2013 04/15/2014 Cutaneous skin tags 12/12/2012 04/14/2013 Intradermal nevus 12/12/2012 04/14/2013 Melanocytic nevi of trunk 12/12/20122013 Dermatofibroma of lower leg 12/12/201203/18 Urinary tract infection 09/02/2012 04/15/19 15 Abdominal pain 09/02/2012 04/15/2014 C. difficile colitis 09/02/2012 04/15/2014 Diverticulitis of colon (wit hout mention of hemorrhage)(562.11) 06/15/2012 04/15/2014 Other Seborrheic Keratoses 05/29/201204/15 Actinic skin damage 05/29/2012 04/15/2014 Epidermal cyst: L upper side nose 06/01/2011 04/15/2014 Xerosis cutis 06/01/2011 04/14/2013 Eczema intertrigo 04/25/2011 04/15/2014 Eczematous dermatitis 04/25/2011 04/14/2013 Intertrigo: Irritant fold area dermatitis 201104/14/2013 Urgency of urination 02/13/2011 04/15/2014 Female stress incontinence 02/13/201104/15 Pain in joint, pelvic region and thigh 0 04/15/2014 Family history of malignant neoplasm of ovary 04/14/2013 Solar Lentigines 05/18/2009 04/14/2013 Crowley Angioma//Capillary Angioma 05/18/2009 04/14/2013 Melanocytic nevus of face 05/18/20092013 Melanocytic nevus of trunk 05/18/200904/14 SVT (supraventricular tachycardia) 03/31/2009 04/09/2021 Last Assessment & Plan: She is on coumadin, metoprolol. SEBORRHEIC KERATOSIS: IRRITATED//INFLAMED 200712/12/2012 Viral warts, unspecified 02/08/2008 013 Benign neoplasm of skin of o ther and unspecified parts of face 02/08/2008 12/12/2012 SEBACEOUS HYPERPLASIA//SEBACEOUS GLAND DIS NOS 1 04/09/2007 12/12/2012 Sebaceous cyst 02/08/2008 12/12/2012 Symptomatic menopausal or female climacteric sta tracy 02/04/2008 04/14/2013 Personal history of malignant neoplasm of breast 02/04/2008 04/15/2014 Other specified disorder of bladder 02/04/2008 02/13/2011 Nocturia 02/04/2008 04/15/2014 Episode Elevated Glucose after Steriod 8 04/15/2014 Diarrhea 10/14/2007 04/14/2013 Abdominal pain, left lower quadrant 10/08/2007 04/14/2013 MALIGN NEOPL BREAST NOS 08/18/2007 04/15/19 15 Postmenopausal atrophic vaginitis 07/28/2007 04/15/2014 HX BREAST CANCER 07/01/2007 04/09/2021 Overview: summer, and 2007. On tamoxifen Last Assessment & Plan: summer, and 2007. On tamoxifen Lump or mass in breast 06/24/2007 4 HX OF TUBULAR ADENOMA 04/27/2007 04/09/2021 NEURALGIA///NERV ROOT/PLEXUS DIS NEC 03/25/2007 04/15/2014 XEROSIS///SEBACEOUS GLAND DIS NEC 03/25/2007 02/17/2012 Seborrheic dermatitis, unspecified 03/25/2007 02/17/2012 Palpitations 01/21/2006 02/17/2012 DEGENERATED DISK DISEASE LUMBOSACRAL-NO MYELOPAT HY 01/21/2006 02/17/2012 ELEVATED SGPT 01/21/2006 02/17/2012 SEBORRHEIC KERATOSES 11/25/2005 02/17/2012 ACTINIC DAMAGE//CHR SOLAR SKIN DAMAGE NOS 200502/17/2012 SURGICAL SCAR & FIBROSIS OF SKIN 11/25/2005 02/17/2012 DERMATOFIBROMAS///BENIGN DARINEL SKIN LEG 11/25/2005 02/17/2012 INTRADERMAL NEVI (MELANOCYTIC)/// DARINEL SKIN TRUNK 11/25/2005 02/17/2012 SKIN TAG PAPILLOMAS///SKIN HYPERTRO/ATROPH NOS 0 11/25/2005 02/17/2012 Abdominal pain, unspecified site 10/25/2005 02/17/2012 Sprain of neck 07/05/2005 02/17/2012 FATTY INFILTRATION LIVER 05/14/2005 022 Other diseases of pharynx, not elsewhere classif ied(478.29) 04/14/2013 Unspecified hemorrhoids without mention of compl ication 04/14/2013 Overview: Hemorrhoids Lumbago 04/15/2014 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 Merino on recommendation of Dr. Angeline nath Last Assessment & Plan: She is on asacol for the past few months, it was started by Dr. Merino on recommendation of Dr. 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, estrogen receptor positive 06/03/2017 07/06/2021 Personal history of breast cancer 12/18/2016 04/09/2021 Overview: Added automatically from request for surgery [id number] Permanent atrial fibrillation 12/26/2015 Diverticulitis of large inte angélica without perforation or abscess without bleeding 11/17/2015 04/09/2021 Lymphedema of arm 10/16/2015 04/09/2021 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 female breast 08/04/2015 04/09/2021 Malignant neoplasm of right female breast 201504/09/2021 Overview: The patient had tamoxifen for 5 years and then a gap and resumed after getting cancer for the second time. Last Assessment & Plan: The patient had tamoxifen for 5 years and then a gap and resumed after getting cancer for the second time. Abnormal mammogram of right breast 07/17/2015 04/09/2021 Pain of both shoulder joints 02/21/2015 Other and unspecified noninf ectious gastroenteritis and colitis(558.9) 11/03/2014 11/03/2014 Other specified rheumatoid arthritis, multiple s ites 05/06/2014 07/01/2018 Overview: Dx: 2014 She is on methotrexate and plaquenil Last Assessment & Plan: Dx: 2014 She is on methotrexate and plaquenil Acne rosacea 11/07/2013 04/15/2014 Folliculitis 11/07/2013 04/15/2014 Inflamed seborrheic keratosis 11/07/2013 Xerosis cutis 11/07/2013 04/15/2014 Solar lentigo 11/07/2013 04/15/2014 Crowley angioma 11/07/2013 04/15/2014 Pruritus 11/07/2013 04/15/2014 Backache, unspecified 07/09/2013 04/15/2014 Cutaneous skin tags 12/12/2012 04/14/2013 Intradermal nevus 12/12/2012 04/14/2013 Melanocytic nevi of trunk 12/12/20122013 Dermatofibroma of lower leg 12/12/201203/18 Urinary tract infection 09/02/2012 04/15/19 15 Abdominal pain 09/02/2012 04/15/2014 C. difficile colitis 09/02/2012 04/15/2014 Diverticulitis of colon (wit hout mention of hemorrhage)(562.11) 06/15/2012 04/15/2014 Other Seborrheic Keratoses 05/29/201204/15 Actinic skin damage 05/29/2012 04/15/2014 Epidermal cyst: L upper side nose 06/01/2011 04/15/2014 Xerosis cutis 06/01/2011 04/14/2013 Eczema intertrigo 04/25/2011 04/15/2014 Eczematous dermatitis 04/25/2011 04/14/2013 Intertrigo: Irritant fold area dermatitis 201104/14/2013 Urgency of urination 02/13/2011 04/15/2014 Female stress incontinence 02/13/201104/15 Pain in joint, pelvic region and thigh 0 04/15/2014 Family history of malignant neoplasm of ovary 04/14/2013 Solar Lentigines 05/18/2009 04/14/2013 Crowley Angioma//Capillary Angioma 05/18/2009 04/14/2013 Melanocytic nevus of face 05/18/20092013 Melanocytic nevus of trunk 05/18/200904/14 SVT (supraventricular tachycardia) 03/31/2009 04/09/2021 Last Assessment & Plan: She is on coumadin, metoprolol. SEBORRHEIC KERATOSIS: IRRITATED//INFLAMED 200712/12/2012 Viral warts, unspecified 02/08/2008 013 Benign neoplasm of skin of o ther and unspecified parts of face 02/08/2008 12/12/2012 SEBACEOUS HYPERPLASIA//SEBACEOUS GLAND DIS NOS 1 04/09/2007 12/12/2012 Sebaceous cyst 02/08/2008 12/12/2012 Symptomatic menopausal or female climacteric sta tracy 02/04/2008 04/14/2013 Personal history of malignant neoplasm of breast 02/04/2008 04/15/2014 Other specified disorder of bladder 02/04/2008 02/13/2011 Nocturia 02/04/2008 04/15/2014 Episode Elevated Glucose after Steriod 8 04/15/2014 Diarrhea 10/14/2007 04/14/2013 Abdominal pain, left lower quadrant 10/08/2007 04/14/2013 MALIGN NEOPL BREAST NOS 08/18/2007 04/15/19 15 Postmenopausal atrophic vaginitis 07/28/2007 04/15/2014 HX BREAST CANCER 07/01/2007 04/09/2021 Overview: summer, and 2007. On tamoxifen Last Assessment & Plan: summer, and 2007. On tamoxifen Lump or mass in breast 06/24/2007 4 HX OF TUBULAR ADENOMA 04/27/2007 04/09/2021 NEURALGIA///NERV ROOT/PLEXUS DIS NEC 03/25/2007 04/15/2014 XEROSIS///SEBACEOUS GLAND DIS NEC 03/25/2007 02/17/2012 Seborrheic dermatitis, unspecified 03/25/2007 02/17/2012 Palpitations 01/21/2006 02/17/2012 DEGENERATED DISK DISEASE LUMBOSACRAL-NO MYELOPAT HY 01/21/2006 02/17/2012 ELEVATED SGPT 01/21/2006 02/17/2012 SEBORRHEIC KERATOSES 11/25/2005 02/17/2012 ACTINIC DAMAGE//CHR SOLAR SKIN DAMAGE NOS 200502/17/2012 SURGICAL SCAR & FIBROSIS OF SKIN 11/25/2005 02/17/2012 DERMATOFIBROMAS///BENIGN DARINEL SKIN LEG 11/25/2005 02/17/2012 INTRADERMAL NEVI (MELANOCYTIC)/// DARINEL SKIN TRUNK 11/25/2005 02/17/2012 SKIN TAG PAPILLOMAS///SKIN HYPERTRO/ATROPH NOS 0 11/25/2005 02/17/2012 Abdominal pain, unspecified site 10/25/2005 02/17/2012 Sprain of neck 07/05/2005 02/17/2012 FATTY INFILTRATION LIVER 05/14/2005 022 Other diseases of pharynx, not elsewhere classif ied(478.29) 04/14/2013 Unspecified hemorrhoids without mention of compl ication 04/14/2013 Overview: Hemorrhoids Lumbago 04/15/2014 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 Merino on recommendation of Dr. Angeline nath Last Assessment & Plan: She is on asacol for the past few months, it was started by Dr. Merino on recommendation of Dr. 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, estrogen receptor positive 06/03/2017 07/06/2021 Personal history of breast cancer 12/18/2016 04/09/2021 Overview: Added automatically from request for surgery [id number] Permanent atrial fibrillation 12/26/2015 Diverticulitis of large inte angélica without perforation or abscess without bleeding 11/17/2015 04/09/2021 Lymphedema of arm 10/16/2015 04/09/2021 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 female breast 08/04/2015 04/09/2021 Malignant neoplasm of right female breast 201504/09/2021 Overview: The patient had tamoxifen for 5 years and then a gap and resumed after getting cancer for the second time. Last Assessment & Plan: The patient had tamoxifen for 5 years and then a gap and resumed after getting cancer for the second time. Abnormal mammogram of right breast 07/17/2015 04/09/2021 Pain of both shoulder joints 02/21/2015 Other and unspecified noninf ectious gastroenteritis and colitis(558.9) 11/03/2014 11/03/2014 Other specified rheumatoid arthritis, multiple s ites 05/06/2014 07/01/2018 Overview: Dx: 2014 She is on methotrexate and plaquenil Last Assessment & Plan: Dx: 2014 She is on methotrexate and plaquenil Acne rosacea 11/07/2013 04/15/2014 Folliculitis 11/07/2013 04/15/2014 Inflamed seborrheic keratosis 11/07/2013 Xerosis cutis 11/07/2013 04/15/2014 Solar lentigo 11/07/2013 04/15/2014 Crowley angioma 11/07/2013 04/15/2014 Pruritus 11/07/2013 04/15/2014 Backache, unspecified 07/09/2013 04/15/2014 Cutaneous skin tags 12/12/2012 04/14/2013 Intradermal nevus 12/12/2012 04/14/2013 Melanocytic nevi of trunk 12/12/20122013 Dermatofibroma of lower leg 12/12/201203/18 Urinary tract infection 09/02/2012 04/15/19 15 Abdominal pain 09/02/2012 04/15/2014 C. difficile colitis 09/02/2012 04/15/2014 Diverticulitis of colon (wit hout mention of hemorrhage)(562.11) 06/15/2012 04/15/2014 Other Seborrheic Keratoses 05/29/201204/15 Actinic skin damage 05/29/2012 04/15/2014 Epidermal cyst: L upper side nose 06/01/2011 04/15/2014 Xerosis cutis 06/01/2011 04/14/2013 Eczema intertrigo 04/25/2011 04/15/2014 Eczematous dermatitis 04/25/2011 04/14/2013 Intertrigo: Irritant fold area dermatitis 201104/14/2013 Urgency of urination 02/13/2011 04/15/2014 Female stress incontinence 02/13/201104/15 Pain in joint, pelvic region and thigh 10/09/201 0 04/15/2014 Family history of malignant neoplasm of ovary 04/14/2013 Solar Lentigines 05/18/2009 04/14/2013 Crowley Angioma//Capillary Angioma 05/18/2009 04/14/2013 Melanocytic nevus of face 05/18/20092013 Melanocytic nevus of trunk 05/18/200904/14 SVT (supraventricular tachycardia) 03/31/2009 04/09/2021 Last Assessment & Plan: She is on coumadin, metoprolol. SEBORRHEIC KERATOSIS: IRRITATED//INFLAMED 200712/12/2012 Viral warts, unspecified 02/08/2008 013 Benign neoplasm of skin of o ther and unspecified parts of face 02/08/2008 12/12/2012 SEBACEOUS HYPERPLASIA//SEBACEOUS GLAND DIS NOS 1 04/09/2007 12/12/2012 Sebaceous cyst 02/08/2008 12/12/2012 Symptomatic menopausal or female climacteric sta tracy 02/04/2008 04/14/2013 Personal history of malignant neoplasm of breast 02/04/2008 04/15/2014 Other specified disorder of bladder 02/04/2008 02/13/2011 Nocturia 02/04/2008 04/15/2014 Episode Elevated Glucose after Steriod 8 04/15/2014 Diarrhea 10/14/2007 04/14/2013 Abdominal pain, left lower quadrant 10/08/2007 04/14/2013 MALIGN NEOPL BREAST NOS 08/18/2007 04/15/19 15 Postmenopausal atrophic vaginitis 07/28/2007 04/15/2014 HX BREAST CANCER 07/01/2007 04/09/2021 Overview: Summer of 2015, and 2007. On tamoxifen Last Assessment & Plan: summer, and 2007. On tamoxifen Lump or mass in breast 06/24/2007 4 HX OF TUBULAR ADENOMA 04/27/2007 04/09/2021 NEURALGIA///NERV ROOT/PLEXUS DIS NEC 03/25/2007 04/15/2014 XEROSIS///SEBACEOUS GLAND DIS NEC 03/25/2007 02/17/2012 Seborrheic dermatitis, unspecified 03/25/2007 02/17/2012 Palpitations 01/21/2006 02/17/2012 DEGENERATED DISK DISEASE LUMBOSACRAL-NO MYELOPAT HY 01/21/2006 02/17/2012 ELEVATED SGPT 01/21/2006 02/17/2012 SEBORRHEIC KERATOSES 11/25/2005 02/17/2012 ACTINIC DAMAGE//CHR SOLAR SKIN DAMAGE NOS 200502/17/2012 SURGICAL SCAR & FIBROSIS OF SKIN 11/25/2005 02/17/2012 DERMATOFIBROMAS///BENIGN DARINEL SKIN LEG 11/25/2005 02/17/2012 INTRADERMAL NEVI (MELANOCYTIC)/// DARINEL SKIN TRUNK 11/25/2005 02/17/2012 SKIN TAG PAPILLOMAS///SKIN HYPERTRO/ATROPH NOS 0 11/25/2005 02/17/2012 Abdominal pain, unspecified site 10/25/2005 02/17/2012 Sprain of neck 07/05/2005 02/17/2012 FATTY INFILTRATION LIVER 05/14/2005 022 Other diseases of pharynx, not elsewhere classif ied(478.29) 04/14/2013 Unspecified hemorrhoids without mention of compl ication 04/14/2013 Overview: Hemorrhoids Lumbago 04/15/2014 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 Merino on recommendation of Dr. Angeline nath Last Assessment & Plan: She is on asacol for the past few months, it was started by Dr. Merino on recommendation of Dr. 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, estrogen receptor positive 06/03/2017 07/06/2021 Personal history of breast cancer 12/18/2016 04/09/2021 Overview: Added automatically from request for surgery [id number] Permanent atrial fibrillation 12/26/2015 Diverticulitis of large inte angélica without perforation or abscess without bleeding 11/17/2015 04/09/2021 Lymphedema of arm 10/16/2015 04/09/2021 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 female breast 08/04/2015 04/09/2021 Malignant neoplasm of right female breast 201504/09/2021 Overview: The patient had tamoxifen for 5 years and then a gap and resumed after getting cancer for the second time. Last Assessment & Plan: The patient had tamoxifen for 5 years and then a gap and resumed after getting cancer for the second time. Abnormal mammogram of right breast 07/17/2015 04/09/2021 Pain of both shoulder joints 02/21/2015 Other and unspecified noninf ectious gastroenteritis and colitis(558.9) 11/03/2014 11/03/2014 Other specified rheumatoid arthritis, multiple s ites 05/06/2014 07/01/2018 Overview: Dx: 2014 She is on methotrexate and plaquenil Last Assessment & Plan: Dx: 2014 She is on methotrexate and plaquenil Acne rosacea 11/07/2013 04/15/2014 Folliculitis 11/07/2013 04/15/2014 Inflamed seborrheic keratosis 11/07/2013 Xerosis cutis 11/07/2013 04/15/2014 Solar lentigo 11/07/2013 04/15/2014 Crowley angioma 11/07/2013 04/15/2014 Pruritus 11/07/2013 04/15/2014 Backache, unspecified 07/09/2013 04/15/2014 Cutaneous skin tags 12/12/2012 04/14/2013 Intradermal nevus 12/12/2012 04/14/2013 Melanocytic nevi of trunk 12/12/20122013 Dermatofibroma of lower leg 12/12/201203/18 Urinary tract infection 09/02/2012 04/15/19 15 Abdominal pain 09/02/2012 04/15/2014 C. difficile colitis 09/02/2012 04/15/2014 Diverticulitis of colon (wit hout mention of hemorrhage)(562.11) 06/15/2012 04/15/2014 Other Seborrheic Keratoses 05/29/201204/15 Actinic skin damage 05/29/2012 04/15/2014 Epidermal cyst: L upper side nose 06/01/2011 04/15/2014 Xerosis cutis 06/01/2011 04/14/2013 Eczema intertrigo 04/25/2011 04/15/2014 Eczematous dermatitis 04/25/2011 04/14/2013 Intertrigo: Irritant fold area dermatitis 201104/14/2013 Urgency of urination 02/13/2011 04/15/2014 Female stress incontinence 02/13/201104/15 Pain in joint, pelvic region and thigh 0 04/15/2014 Family history of malignant neoplasm of ovary 04/14/2013 Solar Lentigines 05/18/2009 04/14/2013 Crowley Angioma//Capillary Angioma 05/18/2009 04/14/2013 Melanocytic nevus of face 05/18/20092013 Melanocytic nevus of trunk 05/18/200904/14 SVT (supraventricular tachycardia) 03/31/2009 04/09/2021 Last Assessment & Plan: She is on coumadin, metoprolol. SEBORRHEIC KERATOSIS: IRRITATED//INFLAMED 200712/12/2012 Viral warts, unspecified 02/08/2008 013 Benign neoplasm of skin of o ther and unspecified parts of face 02/08/2008 12/12/2012 SEBACEOUS HYPERPLASIA//SEBACEOUS GLAND DIS NOS 1 04/09/2007 12/12/2012 Sebaceous cyst 02/08/2008 12/12/2012 Symptomatic menopausal or female climacteric sta tracy 02/04/2008 04/14/2013 Personal history of malignant neoplasm of breast 02/04/2008 04/15/2014 Other specified disorder of bladder 02/04/2008 02/13/2011 Nocturia 02/04/2008 04/15/2014 Episode Elevated Glucose after Steriod 8 04/15/2014 Diarrhea 10/14/2007 04/14/2013 Abdominal pain, left lower quadrant 10/08/2007 04/14/2013 MALIGN NEOPL BREAST NOS 08/18/2007 04/15/19 15 Postmenopausal atrophic vaginitis 07/28/2007 04/15/2014 HX BREAST CANCER 07/01/2007 04/09/2021 Overview: summer, and 2007. On tamoxifen Last Assessment & Plan: summer, and 2007. On tamoxifen Lump or mass in breast 06/24/2007 4 HX OF TUBULAR ADENOMA 04/27/2007 04/09/2021 NEURALGIA///NERV ROOT/PLEXUS DIS NEC 03/25/2007 04/15/2014 XEROSIS///SEBACEOUS GLAND DIS NEC 03/25/2007 02/17/2012 Seborrheic dermatitis, unspecified 03/25/2007 02/17/2012 Palpitations 01/21/2006 02/17/2012 DEGENERATED DISK DISEASE LUMBOSACRAL-NO MYELOPAT HY 01/21/2006 02/17/2012 ELEVATED SGPT 01/21/2006 02/17/2012 SEBORRHEIC KERATOSES 11/25/2005 02/17/2012 ACTINIC DAMAGE//CHR SOLAR SKIN DAMAGE NOS 200502/17/2012 SURGICAL SCAR & FIBROSIS OF SKIN 11/25/2005 02/17/2012 DERMATOFIBROMAS///BENIGN DARINEL SKIN LEG 11/25/2005 02/17/2012 INTRADERMAL NEVI (MELANOCYTIC)/// DARINEL SKIN TRUNK 11/25/2005 02/17/2012 SKIN TAG PAPILLOMAS///SKIN HYPERTRO/ATROPH NOS 0 11/25/2005 02/17/2012 Abdominal pain, unspecified site 10/25/2005 02/17/2012 Sprain of neck 07/05/2005 02/17/2012 FATTY INFILTRATION LIVER 05/14/2005 022 Other diseases of pharynx, not elsewhere classif ied(478.29) 04/14/2013 Unspecified hemorrhoids without mention of compl ication 04/14/2013 Overview: Hemorrhoids Lumbago 04/15/2014 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 Merino on recommendation of Dr. Angeline nath Last Assessment & Plan: She is on asacol for the past few months, it was started by Dr. Merino on recommendation of Dr. 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, estrogen receptor positive 06/03/2017 07/06/2021 Personal history of breast cancer 12/18/2016 04/09/2021 Overview: Added automatically from request for surgery [id number] Permanent atrial fibrillation 12/26/2015 Diverticulitis of large inte angélica without perforation or abscess without bleeding 11/17/2015 04/09/2021 Lymphedema of arm 10/16/2015 04/09/2021 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 female breast 08/04/2015 04/09/2021 Malignant neoplasm of right female breast 201504/09/2021 Overview: The patient had tamoxifen for 5 years and then a gap and resumed after getting cancer for the second time. Last Assessment & Plan: The patient had tamoxifen for 5 years and then a gap and resumed after getting cancer for the second time. Abnormal mammogram of right breast 07/17/2015 04/09/2021 Pain of both shoulder joints 02/21/2015 Other and unspecified noninf ectious gastroenteritis and colitis(558.9) 11/03/2014 11/03/2014 Other specified rheumatoid arthritis, multiple s ites 05/06/2014 07/01/2018 Overview: Dx: 2014 She is on methotrexate and plaquenil Last Assessment & Plan: Dx: 2014 She is on methotrexate and plaquenil Acne rosacea 11/07/2013 04/15/2014 Folliculitis 11/07/2013 04/15/2014 Inflamed seborrheic keratosis 11/07/2013 Xerosis cutis 11/07/2013 04/15/2014 Solar lentigo 11/07/2013 04/15/2014 Crowley angioma 11/07/2013 04/15/2014 Pruritus 11/07/2013 04/15/2014 Backache, unspecified 07/09/2013 04/15/2014 Cutaneous skin tags 12/12/2012 04/14/2013 Intradermal nevus 12/12/2012 04/14/2013 Melanocytic nevi of trunk 12/12/20122013 Dermatofibroma of lower leg 12/12/201203/18 Urinary tract infection 09/02/2012 04/15/19 15 Abdominal pain 09/02/2012 04/15/2014 C. difficile colitis 09/02/2012 04/15/2014 Diverticulitis of colon (wit hout mention of hemorrhage)(562.11) 06/15/2012 04/15/2014 Other Seborrheic Keratoses 05/29/201204/15 Actinic skin damage 05/29/2012 04/15/2014 Epidermal cyst: L upper side nose 06/01/2011 04/15/2014 Xerosis cutis 06/01/2011 04/14/2013 Eczema intertrigo 04/25/2011 04/15/2014 Eczematous dermatitis 04/25/2011 04/14/2013 Intertrigo: Irritant fold area dermatitis 201104/14/2013 Urgency of urination 02/13/2011 04/15/2014 Female stress incontinence 02/13/201104/15 Pain in joint, pelvic region and thigh 0 04/15/2014 Family history of malignant neoplasm of ovary 04/14/2013 Solar Lentigines 05/18/2009 04/14/2013 Crowley Angioma//Capillary Angioma 05/18/2009 04/14/2013 Melanocytic nevus of face 05/18/20092013 Melanocytic nevus of trunk 05/18/200904/14 SVT (supraventricular tachycardia) 03/31/2009 04/09/2021 Last Assessment & Plan: She is on coumadin, metoprolol. SEBORRHEIC KERATOSIS: IRRITATED//INFLAMED 200712/12/2012 Viral warts, unspecified 02/08/2008 013 Benign neoplasm of skin of o ther and unspecified parts of face 02/08/2008 12/12/2012 SEBACEOUS HYPERPLASIA//SEBACEOUS GLAND DIS NOS 1 04/09/2007 12/12/2012 Sebaceous cyst 02/08/2008 12/12/2012 Symptomatic menopausal or female climacteric sta tracy 02/04/2008 04/14/2013 Personal history of malignant neoplasm of breast 02/04/2008 04/15/2014 Other specified disorder of bladder 02/04/2008 02/13/2011 Nocturia 02/04/2008 04/15/2014 Episode Elevated Glucose after Steriod 8 04/15/2014 Diarrhea 10/14/2007 04/14/2013 Abdominal pain, left lower quadrant 10/08/2007 04/14/2013 MALIGN NEOPL BREAST NOS 08/18/2007 04/15/19 15 Postmenopausal atrophic vaginitis 07/28/2007 04/15/2014 HX BREAST CANCER 07/01/2007 04/09/2021 Overview: summer, and 2007. On tamoxifen Last Assessment & Plan: summer, and 2007. On tamoxifen Lump or mass in breast 06/24/2007 4 HX OF TUBULAR ADENOMA 04/27/2007 04/09/2021 NEURALGIA///NERV ROOT/PLEXUS DIS NEC 03/25/2007 04/15/2014 XEROSIS///SEBACEOUS GLAND DIS NEC 03/25/2007 02/17/2012 Seborrheic dermatitis, unspecified 03/25/2007 02/17/2012 Palpitations 01/21/2006 02/17/2012 DEGENERATED DISK DISEASE LUMBOSACRAL-NO MYELOPAT HY 01/21/2006 02/17/2012 ELEVATED SGPT 01/21/2006 02/17/2012 SEBORRHEIC KERATOSES 11/25/2005 02/17/2012 ACTINIC DAMAGE//CHR SOLAR SKIN DAMAGE NOS 200502/17/2012 SURGICAL SCAR & FIBROSIS OF SKIN 11/25/2005 02/17/2012 DERMATOFIBROMAS///BENIGN DARINEL SKIN LEG 11/25/2005 02/17/2012 INTRADERMAL NEVI (MELANOCYTIC)/// DARINEL SKIN TRUNK 11/25/2005 02/17/2012 SKIN TAG PAPILLOMAS///SKIN HYPERTRO/ATROPH NOS 0 11/25/2005 02/17/2012 Abdominal pain, unspecified site 10/25/2005 02/17/2012 Sprain of neck 07/05/2005 02/17/2012 FATTY INFILTRATION LIVER 05/14/2005 022 Other diseases of pharynx, not elsewhere classif ied(478.29) 04/14/2013 Unspecified hemorrhoids without mention of compl ication 04/14/2013 Overview: Hemorrhoids Lumbago 04/15/2014 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 Merino on recommendation of Dr. Angeline nath Last Assessment & Plan: She is on asacol for the past few months, it was started by Dr. Merino on recommendation of Dr. Angeline nath documented as of this encounter (statuses as of 04/08/2022) [facility]04-22-2022 History of Past illness Narrative* Problem Noted Date Resolved Date Dysuria 07/06/2021 07/08/2021 Obesity, Class I, BMI 30-34.9 01/12/2021 GI bleed 01/12/2021 01/14/2021 Acute blood loss anemia 01/12/2021 01/15/20 LLQ pain 09/05/2017 04/09/2021 Overview: Added automatically from request for surgery [id number] 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, estrogen receptor positive 06/03/2017 07/06/2021 Personal history of breast cancer 12/18/2016 04/09/2021 Overview: Added automatically from request for surgery [id number] Permanent atrial fibrillation 12/26/2015 Diverticulitis of large inte angélica without perforation or abscess without bleeding 11/17/2015 04/09/2021 Lymphedema of arm 10/16/2015 04/09/2021 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 female breast 08/04/2015 04/09/2021 Malignant neoplasm of right female breast 201504/09/2021 Overview: The patient had tamoxifen for 5 years and then a gap and resumed after getting cancer for the second time. Last Assessment & Plan: The patient had tamoxifen for 5 years and then a gap and resumed after getting cancer for the second time. Abnormal mammogram of right breast 07/17/2015 04/09/2021 Pain of both shoulder joints 02/21/2015 Other and unspecified noninf ectious gastroenteritis and colitis(608.9) 11/03/2014 11/03/2014 Other specified rheumatoid arthritis, multiple s ites 05/06/2014 07/01/2018 Overview: Dx: 2014 She is on methotrexate and plaquenil Last Assessment & Plan: Dx: 2014 She is on methotrexate and plaquenil Acne rosacea 11/07/2013 04/15/2014 Folliculitis 11/07/2013 04/15/2014 Inflamed seborrheic keratosis 11/07/2013 Xerosis cutis 11/07/2013 04/15/2014 Solar lentigo 11/07/2013 04/15/2014 Crowley angioma 11/07/2013 04/15/2014 Pruritus 11/07/2013 04/15/2014 Backache, unspecified 07/09/2013 04/15/2014 Cutaneous skin tags 12/12/2012 04/14/2013 Intradermal nevus 12/12/2012 04/14/2013 Melanocytic nevi of trunk 12/12/20122013 Dermatofibroma of lower leg 12/12/201203/18 Urinary tract infection 09/02/2012 04/15/19 15 Abdominal pain 09/02/2012 04/15/2014 C. difficile colitis 09/02/2012 04/15/2014 Diverticulitis of colon (wit hout mention of hemorrhage)(562.11) 06/15/2012 04/15/2014 Other Seborrheic Keratoses 05/29/201204/15 Actinic skin damage 05/29/2012 04/15/2014 Epidermal cyst: L upper side nose 06/01/2011 04/15/2014 Xerosis cutis 06/01/2011 04/14/2013 Eczema intertrigo 04/25/2011 04/15/2014 Eczematous dermatitis 04/25/2011 04/14/2013 Intertrigo: Irritant fold area dermatitis 201104/14/2013 Urgency of urination 02/13/2011 04/15/2014 Female stress incontinence 02/13/201104/15 Pain in joint, pelvic region and thigh 10/09/ 0 04/15/2014 Family history of malignant neoplasm of ovary 04/14/2013 Solar Lentigines 05/18/2009 04/14/2013 Crowley Angioma//Capillary Angioma 05/18/2009 04/14/2013 Melanocytic nevus of face 05/18/20092013 Melanocytic nevus of trunk 05/18/200904/14 SVT (supraventricular tachycardia) 03/31/2009 04/09/2021 Last Assessment & Plan: She is on coumadin, metoprolol. SEBORRHEIC KERATOSIS: IRRITATED//INFLAMED 200712/12/2012 Viral warts, unspecified 02/08/2008 013 Benign neoplasm of skin of o ther and unspecified parts of face 02/08/2008 12/12/2012 SEBACEOUS HYPERPLASIA//SEBACEOUS GLAND DIS NOS 1 04/09/2007 12/12/2012 Sebaceous cyst 02/08/2008 12/12/2012 Symptomatic menopausal or female climacteric sta tracy 02/04/2008 04/14/2013 Personal history of malignant neoplasm of breast 02/04/2008 04/15/2014 Other specified disorder of bladder 02/04/2008 02/13/2011 Nocturia 02/04/2008 04/15/2014 Episode Elevated Glucose after Steriod 8 04/15/2014 Diarrhea 10/14/2007 04/14/2013 Abdominal pain, left lower quadrant 10/08/2007 04/14/2013 MALIGN NEOPL BREAST NOS 08/18/2007 04/15/19 15 Postmenopausal atrophic vaginitis 07/28/2007 04/15/2014 HX BREAST CANCER 07/01/2007 04/09/2021 Overview: Summer of 2015, and 2007. On tamoxifen Last Assessment & Plan: Summer of 2015, and 2007. On tamoxifen Lump or mass in breast 06/24/2007 4 HX OF TUBULAR ADENOMA 04/27/2007 04/09/2021 NEURALGIA///NERV ROOT/PLEXUS DIS NEC 03/25/2007 04/15/2014 XEROSIS///SEBACEOUS GLAND DIS NEC 03/25/2007 02/17/2012 Seborrheic dermatitis, unspecified 03/25/2007 02/17/2012 Palpitations 01/21/2006 02/17/2012 DEGENERATED DISK DISEASE LUMBOSACRAL-NO MYELOPAT HY 01/21/2006 02/17/2012 ELEVATED SGPT 01/21/2006 02/17/2012 SEBORRHEIC KERATOSES 11/25/2005 02/17/2012 ACTINIC DAMAGE//CHR SOLAR SKIN DAMAGE NOS 200502/17/2012 SURGICAL SCAR & FIBROSIS OF SKIN 11/25/2005 02/17/2012 DERMATOFIBROMAS///BENIGN DARINEL SKIN LEG 11/25/2005 02/17/2012 INTRADERMAL NEVI (MELANOCYTIC)/// DARINEL SKIN TRUNK 11/25/2005 02/17/2012 SKIN TAG PAPILLOMAS///SKIN HYPERTRO/ATROPH NOS 0 11/25/2005 02/17/2012 Abdominal pain, unspecified site 10/25/2005 02/17/2012 Sprain of neck 07/05/2005 02/17/2012 FATTY INFILTRATION LIVER 05/14/2005 022 Other diseases of pharynx, not elsewhere classif ied(478.29) 04/14/2013 Unspecified hemorrhoids without mention of compl ication 04/14/2013 Overview: Hemorrhoids Lumbago 04/15/2014 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 Merino on recommendation of Dr. Angeline nath Last Assessment & Plan: She is on asacol for the past few months, it was started by Dr. Merino on recommendation of Dr. Angeline nath documented as of this encounter (statuses as of 04/10/2022) [facility]04-22-2022 History of Past illness Narrative* Problem Noted Date Resolved Date Dysuria 07/06/2021 07/08/2021 Obesity, Class I, BMI 30-34.9 01/12/2021 GI bleed 01/12/2021 01/14/2021 Acute blood loss anemia 01/12/2021 01/15/20 LLQ pain 09/05/2017 04/09/2021 Overview: Added automatically from request for surgery [id number] 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, estrogen receptor positive 06/03/2017 07/06/2021 Personal history of breast cancer 12/18/2016 04/09/2021 Overview: Added automatically from request for surgery [id number] Permanent atrial fibrillation 12/26/2015 Diverticulitis of large inte angélica without perforation or abscess without bleeding 11/17/2015 04/09/2021 Lymphedema of arm 10/16/2015 04/09/2021 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 female breast 08/04/2015 04/09/2021 Malignant neoplasm of right female breast 201504/09/2021 Overview: The patient had tamoxifen for 5 years and then a gap and resumed after getting cancer for the second time. Last Assessment & Plan: The patient had tamoxifen for 5 years and then a gap and resumed after getting cancer for the second time. Abnormal mammogram of right breast 07/17/2015 04/09/2021 Pain of both shoulder joints 02/21/2015 Other and unspecified noninf ectious gastroenteritis and colitis(558.9) 11/03/2014 11/03/2014 Other specified rheumatoid arthritis, multiple s ites 05/06/2014 07/01/2018 Overview: Dx: 2014 She is on methotrexate and plaquenil Last Assessment & Plan: Dx: 2014 She is on methotrexate and plaquenil Acne rosacea 11/07/2013 04/15/2014 Folliculitis 11/07/2013 04/15/2014 Inflamed seborrheic keratosis 11/07/2013 Xerosis cutis 11/07/2013 04/15/2014 Solar lentigo 11/07/2013 04/15/2014 Crowley angioma 11/07/2013 04/15/2014 Pruritus 11/07/2013 04/15/2014 Backache, unspecified 07/09/2013 04/15/2014 Cutaneous skin tags 12/12/2012 04/14/2013 Intradermal nevus 12/12/2012 04/14/2013 Melanocytic nevi of trunk 12/12/20122013 Dermatofibroma of lower leg 12/12/201203/18 Urinary tract infection 09/02/2012 04/15/19 15 Abdominal pain 09/02/2012 04/15/2014 C. difficile colitis 09/02/2012 04/15/2014 Diverticulitis of colon (wit hout mention of hemorrhage)(562.11) 06/15/2012 04/15/2014 Other Seborrheic Keratoses 05/29/201204/15 Actinic skin damage 05/29/2012 04/15/2014 Epidermal cyst: L upper side nose 06/01/2011 04/15/2014 Xerosis cutis 06/01/2011 04/14/2013 Eczema intertrigo 04/25/2011 04/15/2014 Eczematous dermatitis 04/25/2011 04/14/2013 Intertrigo: Irritant fold area dermatitis 201104/14/2013 Urgency of urination 02/13/2011 04/15/2014 Female stress incontinence 02/13/201104/15 Pain in joint, pelvic region and thigh 10/09/201 0 04/15/2014 Family history of malignant neoplasm of ovary 04/14/2013 Solar Lentigines 05/18/2009 04/14/2013 Crowley Angioma//Capillary Angioma 05/18/2009 04/14/2013 Melanocytic nevus of face 05/18/20092013 Melanocytic nevus of trunk 05/18/200904/14 SVT (supraventricular tachycardia) 03/31/2009 04/09/2021 Last Assessment & Plan: She is on coumadin, metoprolol. SEBORRHEIC KERATOSIS: IRRITATED//INFLAMED 200712/12/2012 Viral warts, unspecified 02/08/2008 013 Benign neoplasm of skin of o ther and unspecified parts of face 02/08/2008 12/12/2012 SEBACEOUS HYPERPLASIA//SEBACEOUS GLAND DIS NOS 1 04/09/2007 12/12/2012 Sebaceous cyst 02/08/2008 12/12/2012 Symptomatic menopausal or female climacteric sta tracy 02/04/2008 04/14/2013 Personal history of malignant neoplasm of breast 02/04/2008 04/15/2014 Other specified disorder of bladder 02/04/2008 02/13/2011 Nocturia 02/04/2008 04/15/2014 Episode Elevated Glucose after Steriod 8 04/15/2014 Diarrhea 10/14/2007 04/14/2013 Abdominal pain, left lower quadrant 10/08/2007 04/14/2013 MALIGN NEOPL BREAST NOS 08/18/2007 04/15/19 15 Postmenopausal atrophic vaginitis 07/28/2007 04/15/2014 HX BREAST CANCER 07/01/2007 04/09/2021 Overview: summer, and 2007. On tamoxifen Last Assessment & Plan: summer, and 2007. On tamoxifen Lump or mass in breast 06/24/2007 4 HX OF TUBULAR ADENOMA 04/27/2007 04/09/2021 NEURALGIA///NERV ROOT/PLEXUS DIS NEC 03/25/2007 04/15/2014 XEROSIS///SEBACEOUS GLAND DIS NEC 03/25/2007 02/17/2012 Seborrheic dermatitis, unspecified 03/25/2007 02/17/2012 Palpitations 01/21/2006 02/17/2012 DEGENERATED DISK DISEASE LUMBOSACRAL-NO MYELOPAT HY 01/21/2006 02/17/2012 ELEVATED SGPT 01/21/2006 02/17/2012 SEBORRHEIC KERATOSES 11/25/2005 02/17/2012 ACTINIC DAMAGE//CHR SOLAR SKIN DAMAGE NOS 200502/17/2012 SURGICAL SCAR & FIBROSIS OF SKIN 11/25/2005 02/17/2012 DERMATOFIBROMAS///BENIGN DARINEL SKIN LEG 11/25/2005 02/17/2012 INTRADERMAL NEVI (MELANOCYTIC)/// DARINEL SKIN TRUNK 11/25/2005 02/17/2012 SKIN TAG PAPILLOMAS///SKIN HYPERTRO/ATROPH NOS 0 11/25/2005 02/17/2012 Abdominal pain, unspecified site 10/25/2005 02/17/2012 Sprain of neck 07/05/2005 02/17/2012 FATTY INFILTRATION LIVER 05/14/2005 022 Other diseases of pharynx, not elsewhere classif ied(478.29) 04/14/2013 Unspecified hemorrhoids without mention of compl ication 04/14/2013 Overview: Hemorrhoids Lumbago 04/15/2014 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 Merino on recommendation of Dr. Angeline nath Last Assessment & Plan: She is on asacol for the past few months, it was started by Dr. Merino on recommendation of Dr. 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, estrogen receptor positive 06/03/2017 07/06/2021 Personal history of breast cancer 12/18/2016 04/09/2021 Overview: Added automatically from request for surgery [id number] Permanent atrial fibrillation 12/26/2015 Diverticulitis of large inte angélica without perforation or abscess without bleeding 11/17/2015 04/09/2021 Lymphedema of arm 10/16/2015 04/09/2021 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 female breast 08/04/2015 04/09/2021 Malignant neoplasm of right female breast 201504/09/2021 Overview: The patient had tamoxifen for 5 years and then a gap and resumed after getting cancer for the second time. Last Assessment & Plan: The patient had tamoxifen for 5 years and then a gap and resumed after getting cancer for the second time. Abnormal mammogram of right breast 07/17/2015 04/09/2021 Pain of both shoulder joints 02/21/2015 Other and unspecified noninf ectious gastroenteritis and colitis(558.9) 11/03/2014 11/03/2014 Other specified rheumatoid arthritis, multiple s ites 05/06/2014 07/01/2018 Overview: Dx: 2014 She is on methotrexate and plaquenil Last Assessment & Plan: Dx: 2014 She is on methotrexate and plaquenil Acne rosacea 11/07/2013 04/15/2014 Folliculitis 11/07/2013 04/15/2014 Inflamed seborrheic keratosis 11/07/2013 Xerosis cutis 11/07/2013 04/15/2014 Solar lentigo 11/07/2013 04/15/2014 Crowley angioma 11/07/2013 04/15/2014 Pruritus 11/07/2013 04/15/2014 Backache, unspecified 07/09/2013 04/15/2014 Cutaneous skin tags 12/12/2012 04/14/2013 Intradermal nevus 12/12/2012 04/14/2013 Melanocytic nevi of trunk 12/12/20122013 Dermatofibroma of lower leg 12/12/201203/18 Urinary tract infection 09/02/2012 04/15/19 15 Abdominal pain 09/02/2012 04/15/2014 C. difficile colitis 09/02/2012 04/15/2014 Diverticulitis of colon (wit hout mention of hemorrhage)(562.11) 06/15/2012 04/15/2014 Other Seborrheic Keratoses 05/29/201204/15 Actinic skin damage 05/29/2012 04/15/2014 Epidermal cyst: L upper side nose 06/01/2011 04/15/2014 Xerosis cutis 06/01/2011 04/14/2013 Eczema intertrigo 04/25/2011 04/15/2014 Eczematous dermatitis 04/25/2011 04/14/2013 Intertrigo: Irritant fold area dermatitis 201104/14/2013 Urgency of urination 02/13/2011 04/15/2014 Female stress incontinence 02/13/201104/15 Pain in joint, pelvic region and thigh 0 04/15/2014 Family history of malignant neoplasm of ovary 04/14/2013 Solar Lentigines 05/18/2009 04/14/2013 Crowley Angioma//Capillary Angioma 05/18/2009 04/14/2013 Melanocytic nevus of face 05/18/20092013 Melanocytic nevus of trunk 05/18/200904/14 SVT (supraventricular tachycardia) 03/31/2009 04/09/2021 Last Assessment & Plan: She is on coumadin, metoprolol. SEBORRHEIC KERATOSIS: IRRITATED//INFLAMED 200712/12/2012 Viral warts, unspecified 02/08/2008 013 Benign neoplasm of skin of o ther and unspecified parts of face 02/08/2008 12/12/2012 SEBACEOUS HYPERPLASIA//SEBACEOUS GLAND DIS NOS 1 04/09/2007 12/12/2012 Sebaceous cyst 02/08/2008 12/12/2012 Symptomatic menopausal or female climacteric sta tracy 02/04/2008 04/14/2013 Personal history of malignant neoplasm of breast 02/04/2008 04/15/2014 Other specified disorder of bladder 02/04/2008 02/13/2011 Nocturia 02/04/2008 04/15/2014 Episode Elevated Glucose after Steriod 10/21/200 8 04/15/2014 Diarrhea 10/14/2007 04/14/2013 Abdominal pain, left lower quadrant 10/08/2007 04/14/2013 MALIGN NEOPL BREAST NOS 08/18/2007 04/15/19 15 Postmenopausal atrophic vaginitis 07/28/2007 04/15/2014 HX BREAST CANCER 07/01/2007 04/09/2021 Overview: summer, and 2007. On tamoxifen Last Assessment & Plan: summer, and 2007. On tamoxifen Lump or mass in breast 06/24/2007 4 HX OF TUBULAR ADENOMA 04/27/2007 04/09/2021 NEURALGIA///NERV ROOT/PLEXUS DIS NEC 03/25/2007 04/15/2014 XEROSIS///SEBACEOUS GLAND DIS NEC 03/25/2007 02/17/2012 Seborrheic dermatitis, unspecified 03/25/2007 02/17/2012 Palpitations 01/21/2006 02/17/2012 DEGENERATED DISK DISEASE LUMBOSACRAL-NO MYELOPAT HY 01/21/2006 02/17/2012 ELEVATED SGPT 01/21/2006 02/17/2012 SEBORRHEIC KERATOSES 11/25/2005 02/17/2012 ACTINIC DAMAGE//CHR SOLAR SKIN DAMAGE NOS 200502/17/2012 SURGICAL SCAR & FIBROSIS OF SKIN 11/25/2005 02/17/2012 DERMATOFIBROMAS///BENIGN DARINEL SKIN LEG 11/25/2005 02/17/2012 INTRADERMAL NEVI (MELANOCYTIC)/// DARINEL SKIN TRUNK 11/25/2005 02/17/2012 SKIN TAG PAPILLOMAS///SKIN HYPERTRO/ATROPH NOS 0 11/25/2005 02/17/2012 Abdominal pain, unspecified site 10/25/2005 02/17/2012 Sprain of neck 07/05/2005 02/17/2012 FATTY INFILTRATION LIVER 05/14/2005 022 Other diseases of pharynx, not elsewhere classif ied(478.29) 04/14/2013 Unspecified hemorrhoids without mention of compl ication 04/14/2013 Overview: Hemorrhoids Lumbago 04/15/2014 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 Merino on recommendation of Dr. Angeline nath Last Assessment & Plan: She is on asacol for the past few months, it was started by Dr. Merino on recommendation of Dr. Angeline nath documented as of this encounter (statuses as of 04/15/2022) [facility] History of Past illness Narrative* Problem Noted Date Resolved Date Dysuria 07/06/2021 07/08/2021 Obesity, Class I, BMI 30-34.9 01/12/2021 GI bleed 01/12/2021 01/14/2021 Acute blood loss anemia 01/12/2021 01/15/20 21 LLQ pain 09/05/2017 04/09/2021 Overview: Added automatically from request for surgery [id number] 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, estrogen receptor positive 06/03/2017 07/06/2021 Personal history of breast cancer 12/18/2016 04/09/2021 Overview: Added automatically from request for surgery [id number] Permanent atrial fibrillation 12/26/2015 Diverticulitis of large inte angélica without perforation or abscess without bleeding 11/17/2015 04/09/2021 Lymphedema of arm 10/16/2015 04/09/2021 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 female breast 08/04/2015 04/09/2021 Malignant neoplasm of right female breast 201504/09/2021 Overview: The patient had tamoxifen for 5 years and then a gap and resumed after getting cancer for the second time. Last Assessment & Plan: The patient had tamoxifen for 5 years and then a gap and resumed after getting cancer for the second time. Abnormal mammogram of right breast 07/17/2015 04/09/2021 Pain of both shoulder joints 02/21/2015 Other and unspecified noninf ectious gastroenteritis and colitis(558.9) 11/03/2014 11/03/2014 Other specified rheumatoid arthritis, multiple s ites 05/06/2014 07/01/2018 Overview: Dx: 2014 She is on methotrexate and plaquenil Last Assessment & Plan: Dx: 2014 She is on methotrexate and plaquenil Acne rosacea 11/07/2013 04/15/2014 Folliculitis 11/07/2013 04/15/2014 Inflamed seborrheic keratosis 11/07/2013 Xerosis cutis 11/07/2013 04/15/2014 Solar lentigo 11/07/2013 04/15/2014 Crowley angioma 11/07/2013 04/15/2014 Pruritus 11/07/2013 04/15/2014 Backache, unspecified 07/09/2013 04/15/2014 Cutaneous skin tags 12/12/2012 04/14/2013 Intradermal nevus 12/12/2012 04/14/2013 Melanocytic nevi of trunk 12/12/20122013 Dermatofibroma of lower leg 12/12/201203/18 Urinary tract infection 09/02/2012 04/15/19 15 Abdominal pain 09/02/2012 04/15/2014 C. difficile colitis 09/02/2012 04/15/2014 Diverticulitis of colon (wit hout mention of hemorrhage)(562.11) 06/15/2012 04/15/2014 Other Seborrheic Keratoses 05/29/201204/15 Actinic skin damage 05/29/2012 04/15/2014 Epidermal cyst: L upper side nose 06/01/2011 04/15/2014 Xerosis cutis 06/01/2011 04/14/2013 Eczema intertrigo 04/25/2011 04/15/2014 Eczematous dermatitis 04/25/2011 04/14/2013 Intertrigo: Irritant fold area dermatitis 201104/14/2013 Urgency of urination 02/13/2011 04/15/2014 Female stress incontinence 02/13/201104/15 Pain in joint, pelvic region and thigh 0 04/15/2014 Family history of malignant neoplasm of ovary 04/14/2013 Solar Lentigines 05/18/2009 04/14/2013 Crowley Angioma//Capillary Angioma 05/18/2009 04/14/2013 Melanocytic nevus of face 05/18/20092013 Melanocytic nevus of trunk 05/18/200904/14 SVT (supraventricular tachycardia) 03/31/2009 04/09/2021 Last Assessment & Plan: She is on coumadin, metoprolol. SEBORRHEIC KERATOSIS: IRRITATED//INFLAMED 200712/12/2012 Viral warts, unspecified 02/08/2008 013 Benign neoplasm of skin of o ther and unspecified parts of face 02/08/2008 12/12/2012 SEBACEOUS HYPERPLASIA//SEBACEOUS GLAND DIS NOS 1 04/09/2007 12/12/2012 Sebaceous cyst 02/08/2008 12/12/2012 Symptomatic menopausal or female climacteric sta tracy 02/04/2008 04/14/2013 Personal history of malignant neoplasm of breast 02/04/2008 04/15/2014 Other specified disorder of bladder 02/04/2008 02/13/2011 Nocturia 02/04/2008 04/15/2014 Episode Elevated Glucose after Steriod 8 04/15/2014 Diarrhea 10/14/2007 04/14/2013 Abdominal pain, left lower quadrant 10/08/2007 04/14/2013 MALIGN NEOPL BREAST NOS 08/18/2007 04/15/19 15 Postmenopausal atrophic vaginitis 07/28/2007 04/15/2014 HX BREAST CANCER 07/01/2007 04/09/2021 Overview: Summer of 2015, and 2007. On tamoxifen Last Assessment & Plan: summer, and 2007. On tamoxifen Lump or mass in breast 06/24/2007 4 HX OF TUBULAR ADENOMA 04/27/2007 04/09/2021 NEURALGIA///NERV ROOT/PLEXUS DIS NEC 03/25/2007 04/15/2014 XEROSIS///SEBACEOUS GLAND DIS NEC 03/25/2007 02/17/2012 Seborrheic dermatitis, unspecified 03/25/2007 02/17/2012 Palpitations 01/21/2006 02/17/2012 DEGENERATED DISK DISEASE LUMBOSACRAL-NO MYELOPAT HY 01/21/2006 02/17/2012 ELEVATED SGPT 01/21/2006 02/17/2012 SEBORRHEIC KERATOSES 11/25/2005 02/17/2012 ACTINIC DAMAGE//CHR SOLAR SKIN DAMAGE NOS 200502/17/2012 SURGICAL SCAR & FIBROSIS OF SKIN 11/25/2005 02/17/2012 DERMATOFIBROMAS///BENIGN DARINEL SKIN LEG 11/25/2005 02/17/2012 INTRADERMAL NEVI (MELANOCYTIC)/// DARINEL SKIN TRUNK 11/25/2005 02/17/2012 SKIN TAG PAPILLOMAS///SKIN HYPERTRO/ATROPH NOS 0 11/25/2005 02/17/2012 Abdominal pain, unspecified site 10/25/2005 02/17/2012 Sprain of neck 07/05/2005 02/17/2012 FATTY INFILTRATION LIVER 05/14/2005 022 Other diseases of pharynx, not elsewhere classif ied(478.29) 04/14/2013 Unspecified hemorrhoids without mention of compl ication 04/14/2013 Overview: Hemorrhoids Lumbago 04/15/2014 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 Merino on recommendation of Dr. Angelien nath Last Assessment & Plan: She is on asacol for the past few months, it was started by Dr. Merino on recommendation of Dr. Angeline nath documented as of this encounter (statuses as of 04/16/2022) [facility]04-[facility]22 History of Past illness Narrative* Problem Noted Date Resolved Date Dysuria 07/06/2021 07/08/2021 Obesity, Class I, BMI 30-34.9 01/12/2021 GI bleed 01/12/2021 01/14/2021 Acute blood loss anemia 01/12/2021 01/15/20 LLQ pain 09/05/2017 04/09/2021 Overview: Added automatically from request for surgery [id number] 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, estrogen receptor positive 06/03/2017 07/06/2021 Personal history of breast cancer 12/18/2016 04/09/2021 Overview: Added automatically from request for surgery [id number] Permanent atrial fibrillation 12/26/2015 Diverticulitis of large inte angélica without perforation or abscess without bleeding 11/17/2015 04/09/2021 Lymphedema of arm 10/16/2015 04/09/2021 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 female breast 08/04/2015 04/09/2021 Malignant neoplasm of right female breast 201504/09/2021 Overview: The patient had tamoxifen for 5 years and then a gap and resumed after getting cancer for the second time. Last Assessment & Plan: The patient had tamoxifen for 5 years and then a gap and resumed after getting cancer for the second time. Abnormal mammogram of right breast 07/17/2015 04/09/2021 Pain of both shoulder joints 02/21/2015 Other and unspecified noninf ectious gastroenteritis and colitis(558.9) 11/03/2014 11/03/2014 Other specified rheumatoid arthritis, multiple s ites 05/06/2014 07/01/2018 Overview: Dx: 2014 She is on methotrexate and plaquenil Last Assessment & Plan: Dx: 2014 She is on methotrexate and plaquenil Acne rosacea 11/07/2013 04/15/2014 Folliculitis 11/07/2013 04/15/2014 Inflamed seborrheic keratosis 11/07/2013 Xerosis cutis 11/07/2013 04/15/2014 Solar lentigo 11/07/2013 04/15/2014 Crowley angioma 11/07/2013 04/15/2014 Pruritus 11/07/2013 04/15/2014 Backache, unspecified 07/09/2013 04/15/2014 Cutaneous skin tags 12/12/2012 04/14/2013 Intradermal nevus 12/12/2012 04/14/2013 Melanocytic nevi of trunk 12/12/20122013 Dermatofibroma of lower leg 12/12/201203/18 Urinary tract infection 09/02/2012 04/15/19 Abdominal pain 09/02/2012 04/15/2014 C. difficile colitis 09/02/2012 04/15/2014 Diverticulitis of colon (wit hout mention of hemorrhage)(562.11) 06/15/2012 04/15/2014 Other Seborrheic Keratoses 05/29/201204/15 Actinic skin damage 05/29/2012 04/15/2014 Epidermal cyst: L upper side nose 06/01/2011 04/15/2014 Xerosis cutis 06/01/2011 04/14/2013 Eczema intertrigo 04/25/2011 04/15/2014 Eczematous dermatitis 04/25/2011 04/14/2013 Intertrigo: Irritant fold area dermatitis 201104/14/2013 Urgency of urination 02/13/2011 04/15/2014 Female stress incontinence 02/13/201104/15 Pain in joint, pelvic region and thigh 10/09/201 0 04/15/2014 Family history of malignant neoplasm of ovary 04/14/2013 Solar Lentigines 05/18/2009 04/14/2013 Crowley Angioma//Capillary Angioma 05/18/2009 04/14/2013 Melanocytic nevus of face 05/18/20092013 Melanocytic nevus of trunk 05/18/200904/14 SVT (supraventricular tachycardia) 03/31/2009 04/09/2021 Last Assessment & Plan: She is on coumadin, metoprolol. SEBORRHEIC KERATOSIS: IRRITATED//INFLAMED 200712/12/2012 Viral warts, unspecified 02/08/2008 013 Benign neoplasm of skin of o ther and unspecified parts of face 02/08/2008 12/12/2012 SEBACEOUS HYPERPLASIA//SEBACEOUS GLAND DIS NOS 1 04/09/2007 12/12/2012 Sebaceous cyst 02/08/2008 12/12/2012 Symptomatic menopausal or female climacteric sta tracy 02/04/2008 04/14/2013 Personal history of malignant neoplasm of breast 02/04/2008 04/15/2014 Other specified disorder of bladder 02/04/2008 02/13/2011 Nocturia 02/04/2008 04/15/2014 Episode Elevated Glucose after Steriod 8 04/15/2014 Diarrhea 10/14/2007 04/14/2013 Abdominal pain, left lower quadrant 10/08/2007 04/14/2013 MALIGN NEOPL BREAST NOS 08/18/2007 04/15/19 15 Postmenopausal atrophic vaginitis 07/28/2007 04/15/2014 HX BREAST CANCER 07/01/2007 04/09/2021 Overview: summer, and 2007. On tamoxifen Last Assessment & Plan: summer, and 2007. On tamoxifen Lump or mass in breast 06/24/2007 4 HX OF TUBULAR ADENOMA 04/27/2007 04/09/2021 NEURALGIA///NERV ROOT/PLEXUS DIS NEC 03/25/2007 04/15/2014 XEROSIS///SEBACEOUS GLAND DIS NEC 03/25/2007 02/17/2012 Seborrheic dermatitis, unspecified 03/25/2007 02/17/2012 Palpitations 01/21/2006 02/17/2012 DEGENERATED DISK DISEASE LUMBOSACRAL-NO MYELOPAT HY 01/21/2006 02/17/2012 ELEVATED SGPT 01/21/2006 02/17/2012 SEBORRHEIC KERATOSES 11/25/2005 02/17/2012 ACTINIC DAMAGE//CHR SOLAR SKIN DAMAGE NOS 200502/17/2012 SURGICAL SCAR & FIBROSIS OF SKIN 11/25/2005 02/17/2012 DERMATOFIBROMAS///BENIGN DARINEL SKIN LEG 11/25/2005 02/17/2012 INTRADERMAL NEVI (MELANOCYTIC)/// DARINLE SKIN TRUNK 11/25/2005 02/17/2012 SKIN TAG PAPILLOMAS///SKIN HYPERTRO/ATROPH NOS 0 11/25/2005 02/17/2012 Abdominal pain, unspecified site 10/25/2005 02/17/2012 Sprain of neck 07/05/2005 02/17/2012 FATTY INFILTRATION LIVER 05/14/2005 022 Other diseases of pharynx, not elsewhere classif ied(478.29) 04/14/2013 Unspecified hemorrhoids without mention of compl ication 04/14/2013 Overview: Hemorrhoids Lumbago 04/15/2014 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 Merino on recommendation of Dr. Angeline nath Last Assessment & Plan: She is on asacol for the past few months, it was started by Dr. Merino on recommendation of Dr. Angeline nath documented as of this encounter (statuses as of 04/16/2022) [facility]04-22-[facility]22 History of Past illness Narrative* Problem Noted Date Resolved Date Dysuria 07/06/2021 07/08/2021 Obesity, Class I, BMI 30-34.9 01/12/2021 GI bleed 01/12/2021 01/14/2021 Acute blood loss anemia 01/12/2021 01/15/20 21 LLQ pain 09/05/2017 04/09/2021 Overview: Added automatically from request for surgery [id number] 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, estrogen receptor positive 06/03/2017 07/06/2021 Personal history of breast cancer 12/18/2016 04/09/2021 Overview: Added automatically from request for surgery [id number] Permanent atrial fibrillation 12/26/2015 Diverticulitis of large inte angélica without perforation or abscess without bleeding 11/17/2015 04/09/2021 Lymphedema of arm 10/16/2015 04/09/2021 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 female breast 08/04/2015 04/09/2021 Malignant neoplasm of right female breast 201504/09/2021 Overview: The patient had tamoxifen for 5 years and then a gap and resumed after getting cancer for the second time. Last Assessment & Plan: The patient had tamoxifen for 5 years and then a gap and resumed after getting cancer for the second time. Abnormal mammogram of right breast 07/17/2015 04/09/2021 Pain of both shoulder joints 02/21/2015 Other and unspecified noninf ectious gastroenteritis and colitis(558.9) 11/03/2014 11/03/2014 Other specified rheumatoid arthritis, multiple s ites 05/06/2014 07/01/2018 Overview: Dx: 2014 She is on methotrexate and plaquenil Last Assessment & Plan: Dx: 2014 She is on methotrexate and plaquenil Acne rosacea 11/07/2013 04/15/2014 Folliculitis 11/07/2013 04/15/2014 Inflamed seborrheic keratosis 11/07/2013 Xerosis cutis 11/07/2013 04/15/2014 Solar lentigo 11/07/2013 04/15/2014 Crowley angioma 11/07/2013 04/15/2014 Pruritus 11/07/2013 04/15/2014 Backache, unspecified 07/09/2013 04/15/2014 Cutaneous skin tags 12/12/2012 04/14/2013 Intradermal nevus 12/12/2012 04/14/2013 Melanocytic nevi of trunk 12/12/20122013 Dermatofibroma of lower leg 12/12/201203/18 Urinary tract infection 09/02/2012 04/15/19 15 Abdominal pain 09/02/2012 04/15/2014 C. difficile colitis 09/02/2012 04/15/2014 Diverticulitis of colon (wit hout mention of hemorrhage)(562.11) 06/15/2012 04/15/2014 Other Seborrheic Keratoses 05/29/201204/15 Actinic skin damage 05/29/2012 04/15/2014 Epidermal cyst: L upper side nose 06/01/2011 04/15/2014 Xerosis cutis 06/01/2011 04/14/2013 Eczema intertrigo 04/25/2011 04/15/2014 Eczematous dermatitis 04/25/2011 04/14/2013 Intertrigo: Irritant fold area dermatitis 201104/14/2013 Urgency of urination 02/13/2011 04/15/2014 Female stress incontinence 02/13/201104/15 Pain in joint, pelvic region and thigh 0 04/15/2014 Family history of malignant neoplasm of ovary 04/14/2013 Solar Lentigines 05/18/2009 04/14/2013 Crowley Angioma//Capillary Angioma 05/18/2009 04/14/2013 Melanocytic nevus of face 05/18/20092013 Melanocytic nevus of trunk 05/18/200904/14 SVT (supraventricular tachycardia) 03/31/2009 04/09/2021 Last Assessment & Plan: She is on coumadin, metoprolol. SEBORRHEIC KERATOSIS: IRRITATED//INFLAMED 200712/12/2012 Viral warts, unspecified 02/08/2008 013 Benign neoplasm of skin of o ther and unspecified parts of face 02/08/2008 12/12/2012 SEBACEOUS HYPERPLASIA//SEBACEOUS GLAND DIS NOS 1 04/09/2007 12/12/2012 Sebaceous cyst 02/08/2008 12/12/2012 Symptomatic menopausal or female climacteric sta tracy 02/04/2008 04/14/2013 Personal history of malignant neoplasm of breast 02/04/2008 04/15/2014 Other specified disorder of bladder 02/04/2008 02/13/2011 Nocturia 02/04/2008 04/15/2014 Episode Elevated Glucose after Steriod 8 04/15/2014 Diarrhea 10/14/2007 04/14/2013 Abdominal pain, left lower quadrant 10/08/2007 04/14/2013 MALIGN NEOPL BREAST NOS 08/18/2007 04/15/19 15 Postmenopausal atrophic vaginitis 07/28/2007 04/15/2014 HX BREAST CANCER 07/01/2007 04/09/2021 Overview: summer, and 2007. On tamoxifen Last Assessment & Plan: summer, and 2007. On tamoxifen Lump or mass in breast 06/24/2007 4 HX OF TUBULAR ADENOMA 04/27/2007 04/09/2021 NEURALGIA///NERV ROOT/PLEXUS DIS NEC 03/25/2007 04/15/2014 XEROSIS///SEBACEOUS GLAND DIS NEC 03/25/2007 02/17/2012 Seborrheic dermatitis, unspecified 03/25/2007 02/17/2012 Palpitations 01/21/2006 02/17/2012 DEGENERATED DISK DISEASE LUMBOSACRAL-NO MYELOPAT HY 01/21/2006 02/17/2012 ELEVATED SGPT 01/21/2006 02/17/2012 SEBORRHEIC KERATOSES 11/25/2005 02/17/2012 ACTINIC DAMAGE//CHR SOLAR SKIN DAMAGE NOS 200502/17/2012 SURGICAL SCAR & FIBROSIS OF SKIN 11/25/2005 02/17/2012 DERMATOFIBROMAS///BENIGN DARINEL SKIN LEG 11/25/2005 02/17/2012 INTRADERMAL NEVI (MELANOCYTIC)/// DARINEL SKIN TRUNK 11/25/2005 02/17/2012 SKIN TAG PAPILLOMAS///SKIN HYPERTRO/ATROPH NOS 0 11/25/2005 02/17/2012 Abdominal pain, unspecified site 10/25/2005 02/17/2012 Sprain of neck 07/05/2005 02/17/2012 FATTY INFILTRATION LIVER 05/14/2005 022 Other diseases of pharynx, not elsewhere classif ied(478.29) 04/14/2013 Unspecified hemorrhoids without mention of compl ication 04/14/2013 Overview: Hemorrhoids Lumbago 04/15/2014 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 Merino on recommendation of Dr. Angeline nath Last Assessment & Plan: She is on asacol for the past few months, it was started by Dr. Merino on recommendation of Dr. 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, estrogen receptor positive 06/03/2017 07/06/2021 Personal history of breast cancer 12/18/2016 04/09/2021 Overview: Added automatically from request for surgery [id number] Permanent atrial fibrillation 12/26/2015 Diverticulitis of large inte angélica without perforation or abscess without bleeding 11/17/2015 04/09/2021 Lymphedema of arm 10/16/2015 04/09/2021 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 female breast 08/04/2015 04/09/2021 Malignant neoplasm of right female breast 201504/09/2021 Overview: The patient had tamoxifen for 5 years and then a gap and resumed after getting cancer for the second time. Last Assessment & Plan: The patient had tamoxifen for 5 years and then a gap and resumed after getting cancer for the second time. Abnormal mammogram of right breast 07/17/2015 04/09/2021 Pain of both shoulder joints 02/21/2015 Other and unspecified noninf ectious gastroenteritis and colitis(558.9) 11/03/2014 11/03/2014 Other specified rheumatoid arthritis, multiple s ites 05/06/2014 07/01/2018 Overview: Dx: 2014 She is on methotrexate and plaquenil Last Assessment & Plan: Dx: 2014 She is on methotrexate and plaquenil Acne rosacea 11/07/2013 04/15/2014 Folliculitis 11/07/2013 04/15/2014 Inflamed seborrheic keratosis 11/07/2013 Xerosis cutis 11/07/2013 04/15/2014 Solar lentigo 11/07/2013 04/15/2014 Crowley angioma 11/07/2013 04/15/2014 Pruritus 11/07/2013 04/15/2014 Backache, unspecified 07/09/2013 04/15/2014 Cutaneous skin tags 12/12/2012 04/14/2013 Intradermal nevus 12/12/2012 04/14/2013 Melanocytic nevi of trunk 12/12/20122013 Dermatofibroma of lower leg 12/12/201203/18 Urinary tract infection 09/02/2012 04/15/19 15 Abdominal pain 09/02/2012 04/15/2014 C. difficile colitis 09/02/2012 04/15/2014 Diverticulitis of colon (wit hout mention of hemorrhage)(562.11) 06/15/2012 04/15/2014 Other Seborrheic Keratoses 05/29/201204/15 Actinic skin damage 05/29/2012 04/15/2014 Epidermal cyst: L upper side nose 06/01/2011 04/15/2014 Xerosis cutis 06/01/2011 04/14/2013 Eczema intertrigo 04/25/2011 04/15/2014 Eczematous dermatitis 04/25/2011 04/14/2013 Intertrigo: Irritant fold area dermatitis 201104/14/2013 Urgency of urination 02/13/2011 04/15/2014 Female stress incontinence 02/13/201104/15 Pain in joint, pelvic region and thigh 0 04/15/2014 Family history of malignant neoplasm of ovary 04/14/2013 Solar Lentigines 05/18/2009 04/14/2013 Crowley Angioma//Capillary Angioma 05/18/2009 04/14/2013 Melanocytic nevus of face 05/18/20092013 Melanocytic nevus of trunk 05/18/200904/14 SVT (supraventricular tachycardia) 03/31/2009 04/09/2021 Last Assessment & Plan: She is on coumadin, metoprolol. SEBORRHEIC KERATOSIS: IRRITATED//INFLAMED 200712/12/2012 Viral warts, unspecified 02/08/2008 013 Benign neoplasm of skin of o ther and unspecified parts of face 02/08/2008 12/12/2012 SEBACEOUS HYPERPLASIA//SEBACEOUS GLAND DIS NOS 1 04/09/2007 12/12/2012 Sebaceous cyst 02/08/2008 12/12/2012 Symptomatic menopausal or female climacteric sta tracy 02/04/2008 04/14/2013 Personal history of malignant neoplasm of breast 02/04/2008 04/15/2014 Other specified disorder of bladder 02/04/2008 02/13/2011 Nocturia 02/04/2008 04/15/2014 Episode Elevated Glucose after Steriod 8 04/15/2014 Diarrhea 10/14/2007 04/14/2013 Abdominal pain, left lower quadrant 10/08/2007 04/14/2013 MALIGN NEOPL BREAST NOS 08/18/2007 04/15/19 15 Postmenopausal atrophic vaginitis 07/28/2007 04/15/2014 HX BREAST CANCER 07/01/2007 04/09/2021 Overview: Summer of 2015, and 2007. On tamoxifen Last Assessment & Plan: summer, and 2007. On tamoxifen Lump or mass in breast 06/24/2007 4 HX OF TUBULAR ADENOMA 04/27/2007 04/09/2021 NEURALGIA///NERV ROOT/PLEXUS DIS NEC 03/25/2007 04/15/2014 XEROSIS///SEBACEOUS GLAND DIS NEC 03/25/2007 02/17/2012 Seborrheic dermatitis, unspecified 03/25/2007 02/17/2012 Palpitations 01/21/2006 02/17/2012 DEGENERATED DISK DISEASE LUMBOSACRAL-NO MYELOPAT HY 01/21/2006 02/17/2012 ELEVATED SGPT 01/21/2006 02/17/2012 SEBORRHEIC KERATOSES 11/25/2005 02/17/2012 ACTINIC DAMAGE//CHR SOLAR SKIN DAMAGE NOS 200502/17/2012 SURGICAL SCAR & FIBROSIS OF SKIN 11/25/2005 02/17/2012 DERMATOFIBROMAS///BENIGN DARINEL SKIN LEG 11/25/2005 02/17/2012 INTRADERMAL NEVI (MELANOCYTIC)/// DARINEL SKIN TRUNK 11/25/2005 02/17/2012 SKIN TAG PAPILLOMAS///SKIN HYPERTRO/ATROPH NOS 0 11/25/2005 02/17/2012 Abdominal pain, unspecified site 10/25/2005 02/17/2012 Sprain of neck 07/05/2005 02/17/2012 FATTY INFILTRATION LIVER 05/14/2005 022 Other diseases of pharynx, not elsewhere classif ied(478.29) 04/14/2013 Unspecified hemorrhoids without mention of compl ication 04/14/2013 Overview: Hemorrhoids Lumbago 04/15/2014 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 Merino on recommendation of Dr. Angeline nath Last Assessment & Plan: She is on asacol for the past few months, it was started by Dr. Merino on recommendation of Dr. 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, estrogen receptor positive 06/03/2017 07/06/2021 Personal history of breast cancer 12/18/2016 04/09/2021 Overview: Added automatically from request for surgery [id number] Permanent atrial fibrillation 12/26/2015 Diverticulitis of large inte angélica without perforation or abscess without bleeding 11/17/2015 04/09/2021 Lymphedema of arm 10/16/2015 04/09/2021 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 female breast 08/04/2015 04/09/2021 Malignant neoplasm of right female breast 201504/09/2021 Overview: The patient had tamoxifen for 5 years and then a gap and resumed after getting cancer for the second time. Last Assessment & Plan: The patient had tamoxifen for 5 years and then a gap and resumed after getting cancer for the second time. Abnormal mammogram of right breast 07/17/2015 04/09/2021 Pain of both shoulder joints 02/21/2015 Other and unspecified noninf ectious gastroenteritis and colitis(558.9) 11/03/2014 11/03/2014 Other specified rheumatoid arthritis, multiple s ites 05/06/2014 07/01/2018 Overview: Dx: 2014 She is on methotrexate and plaquenil Last Assessment & Plan: Dx: 2014 She is on methotrexate and plaquenil Acne rosacea 11/07/2013 04/15/2014 Folliculitis 11/07/2013 04/15/2014 Inflamed seborrheic keratosis 11/07/2013 Xerosis cutis 11/07/2013 04/15/2014 Solar lentigo 11/07/2013 04/15/2014 Crowley angioma 11/07/2013 04/15/2014 Pruritus 11/07/2013 04/15/2014 Backache, unspecified 07/09/2013 04/15/2014 Cutaneous skin tags 12/12/2012 04/14/2013 Intradermal nevus 12/12/2012 04/14/2013 Melanocytic nevi of trunk 12/12/20122013 Dermatofibroma of lower leg 12/12/201203/18 Urinary tract infection 09/02/2012 04/15/19 Abdominal pain 09/02/2012 04/15/2014 C. difficile colitis 09/02/2012 04/15/2014 Diverticulitis of colon (wit hout mention of hemorrhage)(562.11) 06/15/2012 04/15/2014 Other Seborrheic Keratoses 05/29/201204/15 Actinic skin damage 05/29/2012 04/15/2014 Epidermal cyst: L upper side nose 06/01/2011 04/15/2014 Xerosis cutis 06/01/2011 04/14/2013 Eczema intertrigo 04/25/2011 04/15/2014 Eczematous dermatitis 04/25/2011 04/14/2013 Intertrigo: Irritant fold area dermatitis 201104/14/2013 Urgency of urination 02/13/2011 04/15/2014 Female stress incontinence 02/13/201104/15 Pain in joint, pelvic region and thigh 0 04/15/2014 Family history of malignant neoplasm of ovary 04/14/2013 Solar Lentigines 05/18/2009 04/14/2013 Crowley Angioma//Capillary Angioma 05/18/2009 04/14/2013 Melanocytic nevus of face 05/18/20092013 Melanocytic nevus of trunk 05/18/200904/14 SVT (supraventricular tachycardia) 03/31/2009 04/09/2021 Last Assessment & Plan: She is on coumadin, metoprolol. SEBORRHEIC KERATOSIS: IRRITATED//INFLAMED 200712/12/2012 Viral warts, unspecified 02/08/2008 013 Benign neoplasm of skin of o ther and unspecified parts of face 02/08/2008 12/12/2012 SEBACEOUS HYPERPLASIA//SEBACEOUS GLAND DIS NOS 1 04/09/2007 12/12/2012 Sebaceous cyst 02/08/2008 12/12/2012 Symptomatic menopausal or female climacteric sta tracy 02/04/2008 04/14/2013 Personal history of malignant neoplasm of breast 02/04/2008 04/15/2014 Other specified disorder of bladder 02/04/2008 02/13/2011 Nocturia 02/04/2008 04/15/2014 Episode Elevated Glucose after Steriod 8 04/15/2014 Diarrhea 10/14/2007 04/14/2013 Abdominal pain, left lower quadrant 10/08/2007 04/14/2013 MALIGN NEOPL BREAST NOS 08/18/2007 04/15/19 15 Postmenopausal atrophic vaginitis 07/28/2007 04/15/2014 HX BREAST CANCER 07/01/2007 04/09/2021 Overview: summer, and 2007. On tamoxifen Last Assessment & Plan: summer, and 2007. On tamoxifen Lump or mass in breast 06/24/2007 4 HX OF TUBULAR ADENOMA 04/27/2007 04/09/2021 NEURALGIA///NERV ROOT/PLEXUS DIS NEC 03/25/2007 04/15/2014 XEROSIS///SEBACEOUS GLAND DIS NEC 03/25/2007 02/17/2012 Seborrheic dermatitis, unspecified 03/25/2007 02/17/2012 Palpitations 01/21/2006 02/17/2012 DEGENERATED DISK DISEASE LUMBOSACRAL-NO MYELOPAT HY 01/21/2006 02/17/2012 ELEVATED SGPT 01/21/2006 02/17/2012 SEBORRHEIC KERATOSES 11/25/2005 02/17/2012 ACTINIC DAMAGE//CHR SOLAR SKIN DAMAGE NOS 200502/17/2012 SURGICAL SCAR & FIBROSIS OF SKIN 11/25/2005 02/17/2012 DERMATOFIBROMAS///BENIGN DARINEL SKIN LEG 11/25/2005 02/17/2012 INTRADERMAL NEVI (MELANOCYTIC)/// DARINEL SKIN TRUNK 11/25/2005 02/17/2012 SKIN TAG PAPILLOMAS///SKIN HYPERTRO/ATROPH NOS 0 11/25/2005 02/17/2012 Abdominal pain, unspecified site 10/25/2005 02/17/2012 Sprain of neck 07/05/2005 02/17/2012 FATTY INFILTRATION LIVER 05/14/2005 022 Other diseases of pharynx, not elsewhere classif ied(478.29) 04/14/2013 Unspecified hemorrhoids without mention of compl ication 04/14/2013 Overview: Hemorrhoids Lumbago 04/15/2014 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 Merino on recommendation of Dr. Angeline nath Last Assessment & Plan: She is on asacol for the past few months, it was started by Dr. Merino on recommendation of Dr. Angeline nath documented as of this encounter (statuses as of 05/30/2022) [facility]04-[facility]-2022 History of Past illness Narrative* Problem Noted Date Resolved Date Dysuria 07/06/2021 07/08/2021 Obesity, Class I, BMI 30-34.9 01/12/2021 GI bleed 01/12/2021 01/14/2021 Acute blood loss anemia 01/12/2021 01/15/20 21 LLQ pain 09/05/2017 04/09/2021 Overview: Added automatically from request for surgery [id number] 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, estrogen receptor positive 06/03/2017 07/06/2021 Personal history of breast cancer 12/18/2016 04/09/2021 Overview: Added automatically from request for surgery [id number] Permanent atrial fibrillation 12/26/2015 Diverticulitis of large inte angélica without perforation or abscess without bleeding 11/17/2015 04/09/2021 Lymphedema of arm 10/16/2015 04/09/2021 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 female breast 08/04/2015 04/09/2021 Malignant neoplasm of right female breast 201504/09/2021 Overview: The patient had tamoxifen for 5 years and then a gap and resumed after getting cancer for the second time. Last Assessment & Plan: The patient had tamoxifen for 5 years and then a gap and resumed after getting cancer for the second time. Abnormal mammogram of right breast 07/17/2015 04/09/2021 Pain of both shoulder joints 02/21/2015 Other and unspecified noninf ectious gastroenteritis and colitis(558.9) 11/03/2014 11/03/2014 Other specified rheumatoid arthritis, multiple s ites 05/06/2014 07/01/2018 Overview: Dx: 2014 She is on methotrexate and plaquenil Last Assessment & Plan: Dx: 2014 She is on methotrexate and plaquenil Acne rosacea 11/07/2013 04/15/2014 Folliculitis 11/07/2013 04/15/2014 Inflamed seborrheic keratosis 11/07/2013 Xerosis cutis 11/07/2013 04/15/2014 Solar lentigo 11/07/2013 04/15/2014 Crowley angioma 11/07/2013 04/15/2014 Pruritus 11/07/2013 04/15/2014 Backache, unspecified 07/09/2013 04/15/2014 Cutaneous skin tags 12/12/2012 04/14/2013 Intradermal nevus 12/12/2012 04/14/2013 Melanocytic nevi of trunk 12/12/20122013 Dermatofibroma of lower leg 12/12/201203/18 Urinary tract infection 09/02/2012 04/15/19 15 Abdominal pain 09/02/2012 04/15/2014 C. difficile colitis 09/02/2012 04/15/2014 Diverticulitis of colon (wit hout mention of hemorrhage)(562.11) 06/15/2012 04/15/2014 Other Seborrheic Keratoses 05/29/201204/15 Actinic skin damage 05/29/2012 04/15/2014 Epidermal cyst: L upper side nose 06/01/2011 04/15/2014 Xerosis cutis 06/01/2011 04/14/2013 Eczema intertrigo 04/25/2011 04/15/2014 Eczematous dermatitis 04/25/2011 04/14/2013 Intertrigo: Irritant fold area dermatitis 201104/14/2013 Urgency of urination 02/13/2011 04/15/2014 Female stress incontinence 02/13/201104/15 Pain in joint, pelvic region and thigh 0 04/15/2014 Family history of malignant neoplasm of ovary 04/14/2013 Solar Lentigines 05/18/2009 04/14/2013 Crowley Angioma//Capillary Angioma 05/18/2009 04/14/2013 Melanocytic nevus of face 05/18/20092013 Melanocytic nevus of trunk 05/18/200904/14 SVT (supraventricular tachycardia) 03/31/2009 04/09/2021 Last Assessment & Plan: She is on coumadin, metoprolol. SEBORRHEIC KERATOSIS: IRRITATED//INFLAMED 200712/12/2012 Viral warts, unspecified 02/08/2008 013 Benign neoplasm of skin of o ther and unspecified parts of face 02/08/2008 12/12/2012 SEBACEOUS HYPERPLASIA//SEBACEOUS GLAND DIS NOS 1 04/09/2007 12/12/2012 Sebaceous cyst 02/08/2008 12/12/2012 Symptomatic menopausal or female climacteric sta tracy 02/04/2008 04/14/2013 Personal history of malignant neoplasm of breast 02/04/2008 04/15/2014 Other specified disorder of bladder 02/04/2008 02/13/2011 Nocturia 02/04/2008 04/15/2014 Episode Elevated Glucose after Steriod 8 04/15/2014 Diarrhea 10/14/2007 04/14/2013 Abdominal pain, left lower quadrant 10/08/2007 04/14/2013 MALIGN NEOPL BREAST NOS 08/18/2007 04/15/19 15 Postmenopausal atrophic vaginitis 07/28/2007 04/15/2014 HX BREAST CANCER 07/01/2007 04/09/2021 Overview: summer, and 2007. On tamoxifen Last Assessment & Plan: summer, and 2007. On tamoxifen Lump or mass in breast 06/24/2007 4 HX OF TUBULAR ADENOMA 04/27/2007 04/09/2021 NEURALGIA///NERV ROOT/PLEXUS DIS NEC 03/25/2007 04/15/2014 XEROSIS///SEBACEOUS GLAND DIS NEC 03/25/2007 02/17/2012 Seborrheic dermatitis, unspecified 03/25/2007 02/17/2012 Palpitations 01/21/2006 02/17/2012 DEGENERATED DISK DISEASE LUMBOSACRAL-NO MYELOPAT HY 01/21/2006 02/17/2012 ELEVATED SGPT 01/21/2006 02/17/2012 SEBORRHEIC KERATOSES 11/25/2005 02/17/2012 ACTINIC DAMAGE//CHR SOLAR SKIN DAMAGE NOS 200502/17/2012 SURGICAL SCAR & FIBROSIS OF SKIN 11/25/2005 02/17/2012 DERMATOFIBROMAS///BENIGN DARINEL SKIN LEG 11/25/2005 02/17/2012 INTRADERMAL NEVI (MELANOCYTIC)/// DARINEL SKIN TRUNK 11/25/2005 02/17/2012 SKIN TAG PAPILLOMAS///SKIN HYPERTRO/ATROPH NOS 0 11/25/2005 02/17/2012 Abdominal pain, unspecified site 10/25/2005 02/17/2012 Sprain of neck 07/05/2005 02/17/2012 FATTY INFILTRATION LIVER 05/14/2005 022 Other diseases of pharynx, not elsewhere classif ied(478.29) 04/14/2013 Unspecified hemorrhoids without mention of compl ication 04/14/2013 Overview: Hemorrhoids Lumbago 04/15/2014 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 Merino on recommendation of Dr. Angeline nath Last Assessment & Plan: She is on asacol for the past few months, it was started by Dr. Merino on recommendation of Dr. 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, estrogen receptor positive 06/03/2017 07/06/2021 Personal history of breast cancer 12/18/2016 04/09/2021 Overview: Added automatically from request for surgery [id number] Permanent atrial fibrillation 12/26/2015 Diverticulitis of large inte angélica without perforation or abscess without bleeding 11/17/2015 04/09/2021 Lymphedema of arm 10/16/2015 04/09/2021 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 female breast 08/04/2015 04/09/2021 Malignant neoplasm of right female breast 201504/09/2021 Overview: The patient had tamoxifen for 5 years and then a gap and resumed after getting cancer for the second time. Last Assessment & Plan: The patient had tamoxifen for 5 years and then a gap and resumed after getting cancer for the second time. Abnormal mammogram of right breast 07/17/2015 04/09/2021 Pain of both shoulder joints 02/21/2015 Other and unspecified noninf ectious gastroenteritis and colitis(558.9) 11/03/2014 11/03/2014 Other specified rheumatoid arthritis, multiple s ites 05/06/2014 07/01/2018 Overview: Dx: 2014 She is on methotrexate and plaquenil Last Assessment & Plan: Dx: 2014 She is on methotrexate and plaquenil Acne rosacea 11/07/2013 04/15/2014 Folliculitis 11/07/2013 04/15/2014 Inflamed seborrheic keratosis 11/07/2013 Xerosis cutis 11/07/2013 04/15/2014 Solar lentigo 11/07/2013 04/15/2014 Crowley angioma 11/07/2013 04/15/2014 Pruritus 11/07/2013 04/15/2014 Backache, unspecified 07/09/2013 04/15/2014 Cutaneous skin tags 12/12/2012 04/14/2013 Intradermal nevus 12/12/2012 04/14/2013 Melanocytic nevi of trunk 12/12/20122013 Dermatofibroma of lower leg 12/12/201203/18 Urinary tract infection 09/02/2012 04/15/19 15 Abdominal pain 09/02/2012 04/15/2014 C. difficile colitis 09/02/2012 04/15/2014 Diverticulitis of colon (wit hout mention of hemorrhage)(562.11) 06/15/2012 04/15/2014 Other Seborrheic Keratoses 05/29/201204/15 Actinic skin damage 05/29/2012 04/15/2014 Epidermal cyst: L upper side nose 06/01/2011 04/15/2014 Xerosis cutis 06/01/2011 04/14/2013 Eczema intertrigo 04/25/2011 04/15/2014 Eczematous dermatitis 04/25/2011 04/14/2013 Intertrigo: Irritant fold area dermatitis 201104/14/2013 Urgency of urination 02/13/2011 04/15/2014 Female stress incontinence 02/13/201104/15 Pain in joint, pelvic region and thigh 0 04/15/2014 Family history of malignant neoplasm of ovary 04/14/2013 Solar Lentigines 05/18/2009 04/14/2013 Crowley Angioma//Capillary Angioma 05/18/2009 04/14/2013 Melanocytic nevus of face 05/18/20092013 Melanocytic nevus of trunk 05/18/200904/14 SVT (supraventricular tachycardia) 03/31/2009 04/09/2021 Last Assessment & Plan: She is on coumadin, metoprolol. SEBORRHEIC KERATOSIS: IRRITATED//INFLAMED 200712/12/2012 Viral warts, unspecified 02/08/2008 013 Benign neoplasm of skin of o ther and unspecified parts of face 02/08/2008 12/12/2012 SEBACEOUS HYPERPLASIA//SEBACEOUS GLAND DIS NOS 1 04/09/2007 12/12/2012 Sebaceous cyst 02/08/2008 12/12/2012 Symptomatic menopausal or female climacteric sta tracy 02/04/2008 04/14/2013 Personal history of malignant neoplasm of breast 02/04/2008 04/15/2014 Other specified disorder of bladder 02/04/2008 02/13/2011 Nocturia 02/04/2008 04/15/2014 Episode Elevated Glucose after Steriod 8 04/15/2014 Diarrhea 10/14/2007 04/14/2013 Abdominal pain, left lower quadrant 10/08/2007 04/14/2013 MALIGN NEOPL BREAST NOS 08/18/2007 04/15/19 15 Postmenopausal atrophic vaginitis 07/28/2007 04/15/2014 HX BREAST CANCER 07/01/2007 04/09/2021 Overview: Summer of 2015, and 2007. On tamoxifen Last Assessment & Plan: summer, and 2007. On tamoxifen Lump or mass in breast 06/24/2007 4 HX OF TUBULAR ADENOMA 04/27/2007 04/09/2021 NEURALGIA///NERV ROOT/PLEXUS DIS NEC 03/25/2007 04/15/2014 XEROSIS///SEBACEOUS GLAND DIS NEC 03/25/2007 02/17/2012 Seborrheic dermatitis, unspecified 03/25/2007 02/17/2012 Palpitations 01/21/2006 02/17/2012 DEGENERATED DISK DISEASE LUMBOSACRAL-NO MYELOPAT HY 01/21/2006 02/17/2012 ELEVATED SGPT 01/21/2006 02/17/2012 SEBORRHEIC KERATOSES 11/25/2005 02/17/2012 ACTINIC DAMAGE//CHR SOLAR SKIN DAMAGE NOS 200502/17/2012 SURGICAL SCAR & FIBROSIS OF SKIN 11/25/2005 02/17/2012 DERMATOFIBROMAS///BENIGN DARINEL SKIN LEG 11/25/2005 02/17/2012 INTRADERMAL NEVI (MELANOCYTIC)/// DARINEL SKIN TRUNK 11/25/2005 02/17/2012 SKIN TAG PAPILLOMAS///SKIN HYPERTRO/ATROPH NOS 0 11/25/2005 02/17/2012 Abdominal pain, unspecified site 10/25/2005 02/17/2012 Sprain of neck 07/05/2005 02/17/2012 FATTY INFILTRATION LIVER 05/14/2005 022 Other diseases of pharynx, not elsewhere classif ied(478.29) 04/14/2013 Unspecified hemorrhoids without mention of compl ication 04/14/2013 Overview: Hemorrhoids Lumbago 04/15/2014 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 Merino on recommendation of Dr. Angeline nath Last Assessment & Plan: She is on asacol for the past few months, it was started by Dr. Merino on recommendation of Dr. 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, estrogen receptor positive 06/03/2017 07/06/2021 Personal history of breast cancer 12/18/2016 04/09/2021 Overview: Added automatically from request for surgery [id number] Permanent atrial fibrillation 12/26/2015 Diverticulitis of large inte angélica without perforation or abscess without bleeding 11/17/2015 04/09/2021 Lymphedema of arm 10/16/2015 04/09/2021 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 female breast 08/04/2015 04/09/2021 Malignant neoplasm of right female breast 201504/09/2021 Overview: The patient had tamoxifen for 5 years and then a gap and resumed after getting cancer for the second time. Last Assessment & Plan: The patient had tamoxifen for 5 years and then a gap and resumed after getting cancer for the second time. Abnormal mammogram of right breast 07/17/2015 04/09/2021 Pain of both shoulder joints 02/21/2015 Other and unspecified noninf ectious gastroenteritis and colitis(558.9) 11/03/2014 11/03/2014 Other specified rheumatoid arthritis, multiple s ites 05/06/2014 07/01/2018 Overview: Dx: 2014 She is on methotrexate and plaquenil Last Assessment & Plan: Dx: 2014 She is on methotrexate and plaquenil Acne rosacea 11/07/2013 04/15/2014 Folliculitis 11/07/2013 04/15/2014 Inflamed seborrheic keratosis 11/07/2013 Xerosis cutis 11/07/2013 04/15/2014 Solar lentigo 11/07/2013 04/15/2014 Crowley angioma 11/07/2013 04/15/2014 Pruritus 11/07/2013 04/15/2014 Backache, unspecified 07/09/2013 04/15/2014 Cutaneous skin tags 12/12/2012 04/14/2013 Intradermal nevus 12/12/2012 04/14/2013 Melanocytic nevi of trunk 12/12/20122013 Dermatofibroma of lower leg 12/12/201203/18 Urinary tract infection 09/02/2012 04/15/19 Abdominal pain 09/02/2012 04/15/2014 C. difficile colitis 09/02/2012 04/15/2014 Diverticulitis of colon (wit hout mention of hemorrhage)(562.11) 06/15/2012 04/15/2014 Other Seborrheic Keratoses 05/29/201204/15 Actinic skin damage 05/29/2012 04/15/2014 Epidermal cyst: L upper side nose 06/01/2011 04/15/2014 Xerosis cutis 06/01/2011 04/14/2013 Eczema intertrigo 04/25/2011 04/15/2014 Eczematous dermatitis 04/25/2011 04/14/2013 Intertrigo: Irritant fold area dermatitis 201104/14/2013 Urgency of urination 02/13/2011 04/15/2014 Female stress incontinence 02/13/201104/15 Pain in joint, pelvic region and thigh 0 04/15/2014 Family history of malignant neoplasm of ovary 04/14/2013 Solar Lentigines 05/18/2009 04/14/2013 Crowley Angioma//Capillary Angioma 05/18/2009 04/14/2013 Melanocytic nevus of face 05/18/20092013 Melanocytic nevus of trunk 05/18/200904/14 SVT (supraventricular tachycardia) 03/31/2009 04/09/2021 Last Assessment & Plan: She is on coumadin, metoprolol. SEBORRHEIC KERATOSIS: IRRITATED//INFLAMED 200712/12/2012 Viral warts, unspecified 02/08/2008 013 Benign neoplasm of skin of o ther and unspecified parts of face 02/08/2008 12/12/2012 SEBACEOUS HYPERPLASIA//SEBACEOUS GLAND DIS NOS 1 04/09/2007 12/12/2012 Sebaceous cyst 02/08/2008 12/12/2012 Symptomatic menopausal or female climacteric sta tracy 02/04/2008 04/14/2013 Personal history of malignant neoplasm of breast 02/04/2008 04/15/2014 Other specified disorder of bladder 02/04/2008 02/13/2011 Nocturia 02/04/2008 04/15/2014 Episode Elevated Glucose after Steriod 8 04/15/2014 Diarrhea 10/14/2007 04/14/2013 Abdominal pain, left lower quadrant 10/08/2007 04/14/2013 MALIGN NEOPL BREAST NOS 08/18/2007 04/15/19 15 Postmenopausal atrophic vaginitis 07/28/2007 04/15/2014 HX BREAST CANCER 07/01/2007 04/09/2021 Overview: Summer of 2015, and 2007. On tamoxifen Last Assessment & Plan: summer, and 2007. On tamoxifen Lump or mass in breast 06/24/2007 4 HX OF TUBULAR ADENOMA 04/27/2007 04/09/2021 NEURALGIA///NERV ROOT/PLEXUS DIS NEC 03/25/2007 04/15/2014 XEROSIS///SEBACEOUS GLAND DIS NEC 03/25/2007 02/17/2012 Seborrheic dermatitis, unspecified 03/25/2007 02/17/2012 Palpitations 01/21/2006 02/17/2012 DEGENERATED DISK DISEASE LUMBOSACRAL-NO MYELOPAT HY 01/21/2006 02/17/2012 ELEVATED SGPT 01/21/2006 02/17/2012 SEBORRHEIC KERATOSES 11/25/2005 02/17/2012 ACTINIC DAMAGE//CHR SOLAR SKIN DAMAGE NOS 200502/17/2012 SURGICAL SCAR & FIBROSIS OF SKIN 11/25/2005 02/17/2012 DERMATOFIBROMAS///BENIGN DARINEL SKIN LEG 11/25/2005 02/17/2012 INTRADERMAL NEVI (MELANOCYTIC)/// DARINEL SKIN TRUNK 11/25/2005 02/17/2012 SKIN TAG PAPILLOMAS///SKIN HYPERTRO/ATROPH NOS 0 11/25/2005 02/17/2012 Abdominal pain, unspecified site 10/25/2005 02/17/2012 Sprain of neck 07/05/2005 02/17/2012 FATTY INFILTRATION LIVER 05/14/2005 022 Other diseases of pharynx, not elsewhere classif ied(478.29) 04/14/2013 Unspecified hemorrhoids without mention of compl ication 04/14/2013 Overview: Hemorrhoids Lumbago 04/15/2014 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 Merino on recommendation of Dr. Angeline nath Last Assessment & Plan: She is on asacol for the past few months, it was started by Dr. Merino on recommendation of Dr. 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, estrogen receptor positive 06/03/2017 07/06/2021 Personal history of breast cancer 12/18/2016 04/09/2021 Overview: Added automatically from request for surgery [id number] Permanent atrial fibrillation 12/26/2015 Diverticulitis of large inte angélica without perforation or abscess without bleeding 11/17/2015 04/09/2021 Lymphedema of arm 10/16/2015 04/09/2021 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 female breast 08/04/2015 04/09/2021 Malignant neoplasm of right female breast 201504/09/2021 Overview: The patient had tamoxifen for 5 years and then a gap and resumed after getting cancer for the second time. Last Assessment & Plan: The patient had tamoxifen for 5 years and then a gap and resumed after getting cancer for the second time. Abnormal mammogram of right breast 07/17/2015 04/09/2021 Pain of both shoulder joints 02/21/2015 Other and unspecified noninf ectious gastroenteritis and colitis(558.9) 11/03/2014 11/03/2014 Other specified rheumatoid arthritis, multiple s ites 05/06/2014 07/01/2018 Overview: Dx: 2014 She is on methotrexate and plaquenil Last Assessment & Plan: Dx: 2014 She is on methotrexate and plaquenil Acne rosacea 11/07/2013 04/15/2014 Folliculitis 11/07/2013 04/15/2014 Inflamed seborrheic keratosis 11/07/2013 Xerosis cutis 11/07/2013 04/15/2014 Solar lentigo 11/07/2013 04/15/2014 Crowley angioma 11/07/2013 04/15/2014 Pruritus 11/07/2013 04/15/2014 Backache, unspecified 07/09/2013 04/15/2014 Cutaneous skin tags 12/12/2012 04/14/2013 Intradermal nevus 12/12/2012 04/14/2013 Melanocytic nevi of trunk 12/12/20122013 Dermatofibroma of lower leg 12/12/201203/18 Urinary tract infection 09/02/2012 04/15/19 15 Abdominal pain 09/02/2012 04/15/2014 C. difficile colitis 09/02/2012 04/15/2014 Diverticulitis of colon (wit hout mention of hemorrhage)(562.11) 06/15/2012 04/15/2014 Other Seborrheic Keratoses 05/29/201204/15 Actinic skin damage 05/29/2012 04/15/2014 Epidermal cyst: L upper side nose 06/01/2011 04/15/2014 Xerosis cutis 06/01/2011 04/14/2013 Eczema intertrigo 04/25/2011 04/15/2014 Eczematous dermatitis 04/25/2011 04/14/2013 Intertrigo: Irritant fold area dermatitis 201104/14/2013 Urgency of urination 02/13/2011 04/15/2014 Female stress incontinence 02/13/201104/15 Pain in joint, pelvic region and thigh 0 04/15/2014 Family history of malignant neoplasm of ovary 04/14/2013 Solar Lentigines 05/18/2009 04/14/2013 Crowley Angioma//Capillary Angioma 05/18/2009 04/14/2013 Melanocytic nevus of face 05/18/20092013 Melanocytic nevus of trunk 05/18/200904/14 SVT (supraventricular tachycardia) 03/31/2009 04/09/2021 Last Assessment & Plan: She is on coumadin, metoprolol. SEBORRHEIC KERATOSIS: IRRITATED//INFLAMED 200712/12/2012 Viral warts, unspecified 02/08/2008 013 Benign neoplasm of skin of o ther and unspecified parts of face 02/08/2008 12/12/2012 SEBACEOUS HYPERPLASIA//SEBACEOUS GLAND DIS NOS 1 04/09/2007 12/12/2012 Sebaceous cyst 02/08/2008 12/12/2012 Symptomatic menopausal or female climacteric sta tracy 02/04/2008 04/14/2013 Personal history of malignant neoplasm of breast 02/04/2008 04/15/2014 Other specified disorder of bladder 02/04/2008 02/13/2011 Nocturia 02/04/2008 04/15/2014 Episode Elevated Glucose after Steriod 8 04/15/2014 Diarrhea 10/14/2007 04/14/2013 Abdominal pain, left lower quadrant 10/08/2007 04/14/2013 MALIGN NEOPL BREAST NOS 08/18/2007 04/15/19 15 Postmenopausal atrophic vaginitis 07/28/2007 04/15/2014 HX BREAST CANCER 07/01/2007 04/09/2021 Overview: summer, and 2007. On tamoxifen Last Assessment & Plan: summer, and 2007. On tamoxifen Lump or mass in breast 06/24/2007 4 HX OF TUBULAR ADENOMA 04/27/2007 04/09/2021 NEURALGIA///NERV ROOT/PLEXUS DIS NEC 03/25/2007 04/15/2014 XEROSIS///SEBACEOUS GLAND DIS NEC 03/25/2007 02/17/2012 Seborrheic dermatitis, unspecified 03/25/2007 02/17/2012 Palpitations 01/21/2006 02/17/2012 DEGENERATED DISK DISEASE LUMBOSACRAL-NO MYELOPAT HY 01/21/2006 02/17/2012 ELEVATED SGPT 01/21/2006 02/17/2012 SEBORRHEIC KERATOSES 11/25/2005 02/17/2012 ACTINIC DAMAGE//CHR SOLAR SKIN DAMAGE NOS 200502/17/2012 SURGICAL SCAR & FIBROSIS OF SKIN 11/25/2005 02/17/2012 DERMATOFIBROMAS///BENIGN DARINEL SKIN LEG 11/25/2005 02/17/2012 INTRADERMAL NEVI (MELANOCYTIC)/// DARINEL SKIN TRUNK 11/25/2005 02/17/2012 SKIN TAG PAPILLOMAS///SKIN HYPERTRO/ATROPH NOS 0 11/25/2005 02/17/2012 Abdominal pain, unspecified site 10/25/2005 02/17/2012 Sprain of neck 07/05/2005 02/17/2012 FATTY INFILTRATION LIVER 05/14/2005 022 Other diseases of pharynx, not elsewhere classif ied(478.29) 04/14/2013 Unspecified hemorrhoids without mention of compl ication 04/14/2013 Overview: Hemorrhoids Lumbago 04/15/2014 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 Merino on recommendation of Dr. Angeline nath Last Assessment & Plan: She is on asacol for the past few months, it was started by Dr. Merino on recommendation of Dr. 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, estrogen receptor positive 06/03/2017 07/06/2021 Personal history of breast cancer 12/18/2016 04/09/2021 Overview: Added automatically from request for surgery [id number] Permanent atrial fibrillation 12/26/2015 Diverticulitis of large inte angélica without perforation or abscess without bleeding 11/17/2015 04/09/2021 Lymphedema of arm 10/16/2015 04/09/2021 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 female breast 08/04/2015 04/09/2021 Malignant neoplasm of right female breast 201504/09/2021 Overview: The patient had tamoxifen for 5 years and then a gap and resumed after getting cancer for the second time. Last Assessment & Plan: The patient had tamoxifen for 5 years and then a gap and resumed after getting cancer for the second time. Abnormal mammogram of right breast 07/17/2015 04/09/2021 Pain of both shoulder joints 02/21/2015 Other and unspecified noninf ectious gastroenteritis and colitis(558.9) 11/03/2014 11/03/2014 Other specified rheumatoid arthritis, multiple s ites 05/06/2014 07/01/2018 Overview: Dx: 2014 She is on methotrexate and plaquenil Last Assessment & Plan: Dx: 2014 She is on methotrexate and plaquenil Acne rosacea 11/07/2013 04/15/2014 Folliculitis 11/07/2013 04/15/2014 Inflamed seborrheic keratosis 11/07/2013 Xerosis cutis 11/07/2013 04/15/2014 Solar lentigo 11/07/2013 04/15/2014 Crowley angioma 11/07/2013 04/15/2014 Pruritus 11/07/2013 04/15/2014 Backache, unspecified 07/09/2013 04/15/2014 Cutaneous skin tags 12/12/2012 04/14/2013 Intradermal nevus 12/12/2012 04/14/2013 Melanocytic nevi of trunk 12/12/20122013 Dermatofibroma of lower leg 12/12/201203/18 Urinary tract infection 09/02/2012 04/15/19 15 Abdominal pain 09/02/2012 04/15/2014 C. difficile colitis 09/02/2012 04/15/2014 Diverticulitis of colon (wit hout mention of hemorrhage)(562.11) 06/15/2012 04/15/2014 Other Seborrheic Keratoses 05/29/201204/15 Actinic skin damage 05/29/2012 04/15/2014 Epidermal cyst: L upper side nose 06/01/2011 04/15/2014 Xerosis cutis 06/01/2011 04/14/2013 Eczema intertrigo 04/25/2011 04/15/2014 Eczematous dermatitis 04/25/2011 04/14/2013 Intertrigo: Irritant fold area dermatitis 201104/14/2013 Urgency of urination 02/13/2011 04/15/2014 Female stress incontinence 02/13/201104/15 Pain in joint, pelvic region and thigh 0 04/15/2014 Family history of malignant neoplasm of ovary 04/14/2013 Solar Lentigines 05/18/2009 04/14/2013 Crowley Angioma//Capillary Angioma 05/18/2009 04/14/2013 Melanocytic nevus of face 05/18/20092013 Melanocytic nevus of trunk 05/18/200904/14 SVT (supraventricular tachycardia) 03/31/2009 04/09/2021 Last Assessment & Plan: She is on coumadin, metoprolol. SEBORRHEIC KERATOSIS: IRRITATED//INFLAMED 200712/12/2012 Viral warts, unspecified 02/08/2008 013 Benign neoplasm of skin of o ther and unspecified parts of face 02/08/2008 12/12/2012 SEBACEOUS HYPERPLASIA//SEBACEOUS GLAND DIS NOS 1 04/09/2007 12/12/2012 Sebaceous cyst 02/08/2008 12/12/2012 Symptomatic menopausal or female climacteric sta tracy 02/04/2008 04/14/2013 Personal history of malignant neoplasm of breast 02/04/2008 04/15/2014 Other specified disorder of bladder 02/04/2008 02/13/2011 Nocturia 02/04/2008 04/15/2014 Episode Elevated Glucose after Steriod 8 04/15/2014 Diarrhea 10/14/2007 04/14/2013 Abdominal pain, left lower quadrant 10/08/2007 04/14/2013 MALIGN NEOPL BREAST NOS 08/18/2007 04/15/19 15 Postmenopausal atrophic vaginitis 07/28/2007 04/15/2014 HX BREAST CANCER 07/01/2007 04/09/2021 Overview: summer, and 2007. On tamoxifen Last Assessment & Plan: summer, and 2007. On tamoxifen Lump or mass in breast 06/24/2007 4 HX OF TUBULAR ADENOMA 04/27/2007 04/09/2021 NEURALGIA///NERV ROOT/PLEXUS DIS NEC 03/25/2007 04/15/2014 XEROSIS///SEBACEOUS GLAND DIS NEC 03/25/2007 02/17/2012 Seborrheic dermatitis, unspecified 03/25/2007 02/17/2012 Palpitations 01/21/2006 02/17/2012 DEGENERATED DISK DISEASE LUMBOSACRAL-NO MYELOPAT HY 01/21/2006 02/17/2012 ELEVATED SGPT 01/21/2006 02/17/2012 SEBORRHEIC KERATOSES 11/25/2005 02/17/2012 ACTINIC DAMAGE//CHR SOLAR SKIN DAMAGE NOS 200502/17/2012 SURGICAL SCAR & FIBROSIS OF SKIN 11/25/2005 02/17/2012 DERMATOFIBROMAS///BENIGN DARINEL SKIN LEG 11/25/2005 02/17/2012 INTRADERMAL NEVI (MELANOCYTIC)/// DARINEL SKIN TRUNK 11/25/2005 02/17/2012 SKIN TAG PAPILLOMAS///SKIN HYPERTRO/ATROPH NOS 0 11/25/2005 02/17/2012 Abdominal pain, unspecified site 10/25/2005 02/17/2012 Sprain of neck 07/05/2005 02/17/2012 FATTY INFILTRATION LIVER 05/14/2005 022 Other diseases of pharynx, not elsewhere classif ied(478.29) 04/14/2013 Unspecified hemorrhoids without mention of compl ication 04/14/2013 Overview: Hemorrhoids Lumbago 04/15/2014 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 Merino on recommendation of Dr. Angeline nath Last Assessment & Plan: She is on asacol for the past few months, it was started by Dr. Merino on recommendation of Dr. 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, estrogen receptor positive 06/03/2017 07/06/2021 Personal history of breast cancer 12/18/2016 04/09/2021 Overview: Added automatically from request for surgery [id number] Permanent atrial fibrillation 12/26/2015 Diverticulitis of large inte angélica without perforation or abscess without bleeding 11/17/2015 04/09/2021 Lymphedema of arm 10/16/2015 04/09/2021 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 female breast 08/04/2015 04/09/2021 Malignant neoplasm of right female breast 201504/09/2021 Overview: The patient had tamoxifen for 5 years and then a gap and resumed after getting cancer for the second time. Last Assessment & Plan: The patient had tamoxifen for 5 years and then a gap and resumed after getting cancer for the second time. Abnormal mammogram of right breast 07/17/2015 04/09/2021 Pain of both shoulder joints 02/21/2015 Other and unspecified noninf ectious gastroenteritis and colitis(558.9) 11/03/2014 11/03/2014 Other specified rheumatoid arthritis, multiple s ites 05/06/2014 07/01/2018 Overview: Dx: 2014 She is on methotrexate and plaquenil Last Assessment & Plan: Dx: 2014 She is on methotrexate and plaquenil Acne rosacea 11/07/2013 04/15/2014 Folliculitis 11/07/2013 04/15/2014 Inflamed seborrheic keratosis 11/07/2013 Xerosis cutis 11/07/2013 04/15/2014 Solar lentigo 11/07/2013 04/15/2014 Crowley angioma 11/07/2013 04/15/2014 Pruritus 11/07/2013 04/15/2014 Backache, unspecified 07/09/2013 04/15/2014 Cutaneous skin tags 12/12/2012 04/14/2013 Intradermal nevus 12/12/2012 04/14/2013 Melanocytic nevi of trunk 12/12/20122013 Dermatofibroma of lower leg 12/12/201203/18 Urinary tract infection 09/02/2012 04/15/19 15 Abdominal pain 09/02/2012 04/15/2014 C. difficile colitis 09/02/2012 04/15/2014 Diverticulitis of colon (wit hout mention of hemorrhage)(562.11) 06/15/2012 04/15/2014 Other Seborrheic Keratoses 05/29/201204/15 Actinic skin damage 05/29/2012 04/15/2014 Epidermal cyst: L upper side nose 06/01/2011 04/15/2014 Xerosis cutis 06/01/2011 04/14/2013 Eczema intertrigo 04/25/2011 04/15/2014 Eczematous dermatitis 04/25/2011 04/14/2013 Intertrigo: Irritant fold area dermatitis 201104/14/2013 Urgency of urination 02/13/2011 04/15/2014 Female stress incontinence 02/13/201104/15 Pain in joint, pelvic region and thigh 10/09/ 0 04/15/2014 Family history of malignant neoplasm of ovary 04/14/2013 Solar Lentigines 05/18/2009 04/14/2013 Crowley Angioma//Capillary Angioma 05/18/2009 04/14/2013 Melanocytic nevus of face 05/18/20092013 Melanocytic nevus of trunk 05/18/200904/14 SVT (supraventricular tachycardia) 03/31/2009 04/09/2021 Last Assessment & Plan: She is on coumadin, metoprolol. SEBORRHEIC KERATOSIS: IRRITATED//INFLAMED 200712/12/2012 Viral warts, unspecified 02/08/2008 013 Benign neoplasm of skin of o ther and unspecified parts of face 02/08/2008 12/12/2012 SEBACEOUS HYPERPLASIA//SEBACEOUS GLAND DIS NOS 1 04/09/2007 12/12/2012 Sebaceous cyst 02/08/2008 12/12/2012 Symptomatic menopausal or female climacteric sta tracy 02/04/2008 04/14/2013 Personal history of malignant neoplasm of breast 02/04/2008 04/15/2014 Other specified disorder of bladder 02/04/2008 02/13/2011 Nocturia 02/04/2008 04/15/2014 Episode Elevated Glucose after Steriod 8 04/15/2014 Diarrhea 10/14/2007 04/14/2013 Abdominal pain, left lower quadrant 10/08/2007 04/14/2013 MALIGN NEOPL BREAST NOS 08/18/2007 04/15/19 15 Postmenopausal atrophic vaginitis 07/28/2007 04/15/2014 HX BREAST CANCER 07/01/2007 04/09/2021 Overview: Summer of 2015, and 2007. On tamoxifen Last Assessment & Plan: summer, and 2007. On tamoxifen Lump or mass in breast 06/24/2007 4 HX OF TUBULAR ADENOMA 04/27/2007 04/09/2021 NEURALGIA///NERV ROOT/PLEXUS DIS NEC 03/25/2007 04/15/2014 XEROSIS///SEBACEOUS GLAND DIS NEC 03/25/2007 02/17/2012 Seborrheic dermatitis, unspecified 03/25/2007 02/17/2012 Palpitations 01/21/2006 02/17/2012 DEGENERATED DISK DISEASE LUMBOSACRAL-NO MYELOPAT HY 01/21/2006 02/17/2012 ELEVATED SGPT 01/21/2006 02/17/2012 SEBORRHEIC KERATOSES 11/25/2005 02/17/2012 ACTINIC DAMAGE//CHR SOLAR SKIN DAMAGE NOS 200502/17/2012 SURGICAL SCAR & FIBROSIS OF SKIN 11/25/2005 02/17/2012 DERMATOFIBROMAS///BENIGN DARINEL SKIN LEG 11/25/2005 02/17/2012 INTRADERMAL NEVI (MELANOCYTIC)/// DARINEL SKIN TRUNK 11/25/2005 02/17/2012 SKIN TAG PAPILLOMAS///SKIN HYPERTRO/ATROPH NOS 0 11/25/2005 02/17/2012 Abdominal pain, unspecified site 10/25/2005 02/17/2012 Sprain of neck 07/05/2005 02/17/2012 FATTY INFILTRATION LIVER 05/14/2005 022 Other diseases of pharynx, not elsewhere classif ied(478.29) 04/14/2013 Unspecified hemorrhoids without mention of compl ication 04/14/2013 Overview: Hemorrhoids Lumbago 04/15/2014 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 Merino on recommendation of Dr. Angeline nath Last Assessment & Plan: She is on asacol for the past few months, it was started by Dr. Merino on recommendation of Dr. 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, estrogen receptor positive 06/03/2017 07/06/2021 Personal history of breast cancer 12/18/2016 04/09/2021 Overview: Added automatically from request for surgery [id number] Permanent atrial fibrillation 12/26/2015 07/01/2018 Diverticulitis of large inte angélica without perforation or abscess without bleeding 11/17/2015 04/09/2021 Lymphedema of arm 10/16/2015 04/09/2021 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 female breast 08/04/2015 04/09/2021 Malignant neoplasm of right female breast 07/24/2015 04/09/2021 Overview: The patient had tamoxifen for 5 years and then a gap and resumed after getting cancer for the second time. Last Assessment & Plan: The patient had tamoxifen for 5 years and then a gap and resumed after getting cancer for the second time. Abnormal mammogram of right breast 07/17/2015 04/09/2021 Pain of both shoulder joints 02/21/2015 04/09/2021 Other and unspecified noninf ectious gastroenteritis and colitis(558.9) 11/03/201411/03 Other specified rheumatoid a rthritis, multiple sites 05/06/2014 07/01/2018 Overview: Dx: 2014 She is on methotrexate and plaquenil Last Assessment & Plan: Dx: 2014 She is on methotrexate and plaquenil Acne rosacea 11/07/2013 04/15/2014 Folliculitis 11/07/2013 04/15/2014 Inflamed seborrheic keratosis 11/07/2013 04/15/2014 Xerosis cutis 11/07/2013 04/15/2014 Solar lentigo 11/07/2013 04/15/2014 Crowley angioma 11/07/2013 04/15/2014 Pruritus 11/07/2013 04/15/2014 Backache, unspecified 07/09/20132014 Cutaneous skin tags 12/12/2012 04/14/19 14 Intradermal nevus 12/12/2012 04/14/2013 Melanocytic nevi of trunk 12/12/2012 Dermatofibroma of lower leg 12/12/2012 04/14/2013 Urinary tract infection 09/02/201203/19 Abdominal pain 09/02/2012 04/15/2014 C. difficile colitis 09/02/2012 015 Diverticulitis of colon (wit hout mention of hemorrhage)(562.11) 06/15/2012 04/15/2014 Other Seborrheic Keratoses 05/29/2012 0 04/15/2014 Actinic skin damage 05/29/2012 04/15/19 15 Epidermal cyst: L upper side nose 06/01/2011 04/15/2014 Xerosis cutis 06/01/2011 04/14/2013 Eczema intertrigo 04/25/2011 04/15/2014 Eczematous dermatitis 04/25/20112013 Intertrigo: Irritant fold area dermatitis 04/25/2011 04/14/2013 Urgency of urination 02/13/2011 015 Female stress incontinence 02/13/2011 0 04/15/2014 Pain in joint, pelvic region and thigh 10/09/2009 04/15/2014 Family history of malignant neoplasm of ovary 07/19/19 10 04/14/2013 Solar Lentigines 05/18/2009 04/14/2013 Crowley Angioma//Capillary Angioma 05/18/2009 04/14/2013 Melanocytic nevus of face 05/18/2009 Melanocytic nevus of trunk 05/18/2009 0 04/14/2013 SVT (supraventricular tachycardia) 03/31/2009 04/09/2021 Last Assessment & Plan: She is on coumadin, metoprolol. SEBORRHEIC KERATOSIS: IRRITATED//INFLAMED 02/08/2008 12/12/2012 Viral warts, unspecified 02/08/2008 Benign neoplasm of skin of o ther and unspecified parts of face 02/08/2008 12/12/2012 SEBACEOUS HYPERPLASIA//SEBAC EOUS GLAND DIS NOS 02/08/2008 12/12/2012 Sebaceous cyst 02/08/2008 12/12/2012 Symptomatic menopausal or fe male climacteric states 02/04/2008 04/14/2013 Personal history of malignan t neoplasm of breast 02/04/2008 04/15/2014 Other specified disorder of bladder 02/04/2008 02/13/2011 Nocturia 02/04/2008 04/15/2014 Episode Elevated Glucose after Steriod 10/22/2007 04/15/2014 Diarrhea 10/14/2007 04/14/2013 Abdominal pain, left lower quadrant 10/08/2007 04/14/2013 MALIGN NEOPL BREAST NOS 08/18/200703/19 Postmenopausal atrophic vaginitis 07/28/2007 04/15/2014 HX BREAST CANCER 07/01/2007 04/09/2021 Overview: summer, and 2007. On tamoxifen Last Assessment & Plan: summer, and 2007. 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 01/21/2006 02/17/2012 ELEVATED SGPT 01/21/2006 02/17/2012 SEBORRHEIC KERATOSES 11/25/2005 012 ACTINIC DAMAGE//CHR SOLAR SKIN DAMAGE NOS 11/25/2005 02/17/2012 SURGICAL SCAR & FIBROSIS OF SKIN 11/25/2005 02/17/2012 DERMATOFIBROMAS///BENIGN DARINEL SKIN LEG 11/25/2005 02/17/2012 INTRADERMAL NEVI (MELANOCYTI C)/// DARINEL SKIN TRUNK 11/25/2005 02/17/2012 SKIN TAG PAPILLOMAS///SKIN H YPERTRO/ATROPH NOS 11/25/2005 02/17/2012 Abdominal pain, unspecified site 10/25/2005 02/17/2012 Sprain of neck 07/05/2005 02/17/2012 FATTY INFILTRATION LIVER 05/14/2005 Other diseases of pharynx, n ot elsewhere classified(478.29) 04/14/2013 Unspecified hemorrhoids with out mention of complication 04/14/2013 Overview: Hemorrhoids Lumbago 04/15/2014 Other extrapyramidal disease and abnormal movement disorder 04/15/2014 Elevated blood pressure read ing without diagnosis of hypertension 07/28/2007 Irritable bowel syndrome Pure hypercholesterolemia Colitis 04/09/2021 Overview: She is on asacol for the past few months, it was started by Dr. Merino on recommendation of Dr. Angeline nath Last Assessment & Plan: She is on asacol for the past few months, it was started by Dr. Merino on recommendation of Dr. Angeline nath documented as of this encounter (statuses as of 09/25/2022) [facility]04-[facility] History of Past illness Narrative* Problem Noted Date Diagnosed Date Resolved Date Dysuria 07/06/2021 07/08/2021 Obesity, Class I, BMI 30-34.9 01/12/2021 04/09/2021 GI bleed 01/12/2021 01/14/2021 Acute blood loss anemia 01/12/202112/17 LLQ pain 09/05/2017 04/09/2021 Overview: Added automatically from request for surgery [id number] 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, estrogen receptor positive 06/03/2017 07/06/2021 Personal history of breast cancer 12/18/2016 04/09/2021 Overview: Added automatically from request for surgery [id number] Permanent atrial fibrillation 12/26/2015 07/01/2018 Diverticulitis of large inte angélica without perforation or abscess without bleeding 11/17/2015 04/09/2021 Lymphedema of arm 10/16/2015 04/09/2021 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 female breast 08/04/2015 04/09/2021 Malignant neoplasm of right female breast 07/24/2015 04/09/2021 Overview: The patient had tamoxifen for 5 years and then a gap and resumed after getting cancer for the second time. Last Assessment & Plan: The patient had tamoxifen for 5 years and then a gap and resumed after getting cancer for the second time. Abnormal mammogram of right breast 07/17/2015 04/09/2021 Pain of both shoulder joints 02/21/2015 04/09/2021 Other and unspecified noninf ectious gastroenteritis and colitis(558.9) 11/03/201411/03 Other specified rheumatoid a rthritis, multiple sites 05/06/2014 07/01/2018 Overview: Dx: 2014 She is on methotrexate and plaquenil Last Assessment & Plan: Dx: 2014 She is on methotrexate and plaquenil Acne rosacea 11/07/2013 04/15/2014 Folliculitis 11/07/2013 04/15/2014 Inflamed seborrheic keratosis 11/07/2013 04/15/2014 Xerosis cutis 11/07/2013 04/15/2014 Solar lentigo 11/07/2013 04/15/2014 Crowley angioma 11/07/2013 04/15/2014 Pruritus 11/07/2013 04/15/2014 Backache, unspecified 07/09/20132014 Cutaneous skin tags 12/12/2012 04/14/19 14 Intradermal nevus 12/12/2012 04/14/2013 Melanocytic nevi of trunk 12/12/2012 Dermatofibroma of lower leg 12/12/2012 04/14/2013 Urinary tract infection 09/02/201203/19 Abdominal pain 09/02/2012 04/15/2014 C. difficile colitis 09/02/2012 015 Diverticulitis of colon (wit hout mention of hemorrhage)(562.11) 06/15/2012 04/15/2014 Other Seborrheic Keratoses 05/29/2012 0 04/15/2014 Actinic skin damage 05/29/2012 04/15/19 15 Epidermal cyst: L upper side nose 06/01/2011 04/15/2014 Xerosis cutis 06/01/2011 04/14/2013 Eczema intertrigo 04/25/2011 04/15/2014 Eczematous dermatitis 04/25/20112013 Intertrigo: Irritant fold area dermatitis 04/25/2011 04/14/2013 Urgency of urination 02/13/2011 015 Female stress incontinence 02/13/2011 0 04/15/2014 Pain in joint, pelvic region and thigh 10/09/2009 04/15/2014 Family history of malignant neoplasm of ovary 07/19/19 10 04/14/2013 Solar Lentigines 05/18/2009 04/14/2013 Crowley Angioma//Capillary Angioma 05/18/2009 04/14/2013 Melanocytic nevus of face 05/18/2009 Melanocytic nevus of trunk 05/18/2009 0 04/14/2013 SVT (supraventricular tachycardia) 03/31/2009 04/09/2021 Last Assessment & Plan: She is on coumadin, metoprolol. SEBORRHEIC KERATOSIS: IRRITATED//INFLAMED 02/08/2008 12/12/2012 Viral warts, unspecified 02/08/2008 Benign neoplasm of skin of o ther and unspecified parts of face 02/08/2008 12/12/2012 SEBACEOUS HYPERPLASIA//SEBAC EOUS GLAND DIS NOS 02/08/2008 12/12/2012 Sebaceous cyst 02/08/2008 12/12/2012 Symptomatic menopausal or fe male climacteric states 02/04/2008 04/14/2013 Personal history of malignan t neoplasm of breast 02/04/2008 04/15/2014 Other specified disorder of bladder 02/04/2008 02/13/2011 Nocturia 02/04/2008 04/15/2014 Episode Elevated Glucose after Steriod 10/22/2007 04/15/2014 Diarrhea 10/14/2007 04/14/2013 Abdominal pain, left lower quadrant 10/08/2007 04/14/2013 MALIGN NEOPL BREAST NOS 08/18/200703/19 Postmenopausal atrophic vaginitis 07/28/2007 04/15/2014 HX BREAST CANCER 07/01/2007 04/09/2021 Overview: summer, and 2007. On tamoxifen Last Assessment & Plan: summer, and 2007. 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 01/21/2006 02/17/2012 ELEVATED SGPT 01/21/2006 02/17/2012 SEBORRHEIC KERATOSES 11/25/2005 012 ACTINIC DAMAGE//CHR SOLAR SKIN DAMAGE NOS 11/25/2005 02/17/2012 SURGICAL SCAR & FIBROSIS OF SKIN 11/25/2005 02/17/2012 DERMATOFIBROMAS///BENIGN DARINEL SKIN LEG 11/25/2005 02/17/2012 INTRADERMAL NEVI (MELANOCYTI C)/// DARINEL SKIN TRUNK 11/25/2005 02/17/2012 SKIN TAG PAPILLOMAS///SKIN H YPERTRO/ATROPH NOS 11/25/2005 02/17/2012 Abdominal pain, unspecified site 10/25/2005 02/17/2012 Sprain of neck 07/05/2005 02/17/2012 FATTY INFILTRATION LIVER 05/14/2005 Other diseases of pharynx, n ot elsewhere classified(478.29) 04/14/2013 Unspecified hemorrhoids with out mention of complication 04/14/2013 Overview: Hemorrhoids Lumbago 04/15/2014 Other extrapyramidal disease and abnormal movement disorder 04/15/2014 Elevated blood pressure read ing without diagnosis of hypertension 07/28/2007 Irritable bowel syndrome Pure hypercholesterolemia Colitis 04/09/2021 Overview: She is on asacol for the past few months, it was started by Dr. Merino on recommendation of Dr. Angeline nath Last Assessment & Plan: She is on asacol for the past few months, it was started by Dr. Merino on recommendation of Dr. 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, estrogen receptor positive 06/03/2017 07/06/2021 Personal history of breast cancer 12/18/2016 04/09/2021 Overview: Added automatically from request for surgery [id number] Permanent atrial fibrillation 12/26/2015 07/01/2018 Diverticulitis of large inte angélica without perforation or abscess without bleeding 11/17/2015 04/09/2021 Lymphedema of arm 10/16/2015 04/09/2021 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 female breast 08/04/2015 04/09/2021 Malignant neoplasm of right female breast 07/24/2015 04/09/2021 Overview: The patient had tamoxifen for 5 years and then a gap and resumed after getting cancer for the second time. Last Assessment & Plan: The patient had tamoxifen for 5 years and then a gap and resumed after getting cancer for the second time. Abnormal mammogram of right breast 07/17/2015 04/09/2021 Pain of both shoulder joints 02/21/2015 04/09/2021 Other and unspecified noninf ectious gastroenteritis and colitis(558.9) 11/03/201411/03 Other specified rheumatoid a rthritis, multiple sites 05/06/2014 07/01/2018 Overview: Dx: 2014 She is on methotrexate and plaquenil Last Assessment & Plan: Dx: 2014 She is on methotrexate and plaquenil Acne rosacea 11/07/2013 04/15/2014 Folliculitis 11/07/2013 04/15/2014 Inflamed seborrheic keratosis 11/07/2013 04/15/2014 Xerosis cutis 11/07/2013 04/15/2014 Solar lentigo 11/07/2013 04/15/2014 Crowley angioma 11/07/2013 04/15/2014 Pruritus 11/07/2013 04/15/2014 Backache, unspecified 07/09/20132014 Cutaneous skin tags 12/12/2012 04/14/19 14 Intradermal nevus 12/12/2012 04/14/2013 Melanocytic nevi of trunk 12/12/2012 Dermatofibroma of lower leg 12/12/2012 04/14/2013 Urinary tract infection 09/02/201203/19 Abdominal pain 09/02/2012 04/15/2014 C. difficile colitis 09/02/2012 015 Diverticulitis of colon (wit hout mention of hemorrhage)(562.11) 06/15/2012 04/15/2014 Other Seborrheic Keratoses 05/29/2012 0 04/15/2014 Actinic skin damage 05/29/2012 04/15/19 15 Epidermal cyst: L upper side nose 06/01/2011 04/15/2014 Xerosis cutis 06/01/2011 04/14/2013 Eczema intertrigo 04/25/2011 04/15/2014 Eczematous dermatitis 04/25/20112013 Intertrigo: Irritant fold area dermatitis 04/25/2011 04/14/2013 Urgency of urination 02/13/2011 015 Female stress incontinence 02/13/2011 0 04/15/2014 Pain in joint, pelvic region and thigh 10/09/2009 04/15/2014 Family history of malignant neoplasm of ovary 07/19/19 10 04/14/2013 Solar Lentigines 05/18/2009 04/14/2013 Crowley Angioma//Capillary Angioma 05/18/2009 04/14/2013 Melanocytic nevus of face 05/18/2009 Melanocytic nevus of trunk 05/18/2009 0 04/14/2013 SVT (supraventricular tachycardia) 03/31/2009 04/09/2021 Last Assessment & Plan: She is on coumadin, metoprolol. SEBORRHEIC KERATOSIS: IRRITATED//INFLAMED 02/08/2008 12/12/2012 Viral warts, unspecified 02/08/2008 Benign neoplasm of skin of o ther and unspecified parts of face 02/08/2008 12/12/2012 SEBACEOUS HYPERPLASIA//SEBAC EOUS GLAND DIS NOS 02/08/2008 12/12/2012 Sebaceous cyst 02/08/2008 12/12/2012 Symptomatic menopausal or fe male climacteric states 02/04/2008 04/14/2013 Personal history of malignan t neoplasm of breast 02/04/2008 04/15/2014 Other specified disorder of bladder 02/04/2008 02/13/2011 Nocturia 02/04/2008 04/15/2014 Episode Elevated Glucose after Steriod 10/22/2007 04/15/2014 Diarrhea 10/14/2007 04/14/2013 Abdominal pain, left lower quadrant 10/08/2007 04/14/2013 MALIGN NEOPL BREAST NOS 08/18/200703/19 Postmenopausal atrophic vaginitis 07/28/2007 04/15/2014 HX BREAST CANCER 07/01/2007 04/09/2021 Overview: Summer of 2015, and 2007. On tamoxifen Last Assessment & Plan: Summer of 2015, and 2007. 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 01/21/2006 02/17/2012 ELEVATED SGPT 01/21/2006 02/17/2012 SEBORRHEIC KERATOSES 11/25/2005 012 ACTINIC DAMAGE//CHR SOLAR SKIN DAMAGE NOS 11/25/2005 02/17/2012 SURGICAL SCAR & FIBROSIS OF SKIN 11/25/2005 02/17/2012 DERMATOFIBROMAS///BENIGN DARINEL SKIN LEG 11/25/2005 02/17/2012 INTRADERMAL NEVI (MELANOCYTI C)/// DARINEL SKIN TRUNK 11/25/2005 02/17/2012 SKIN TAG PAPILLOMAS///SKIN H YPERTRO/ATROPH NOS 11/25/2005 02/17/2012 Abdominal pain, unspecified site 10/25/2005 02/17/2012 Sprain of neck 07/05/2005 02/17/2012 FATTY INFILTRATION LIVER 05/14/2005 Other diseases of pharynx, n ot elsewhere classified(478.29) 04/14/2013 Unspecified hemorrhoids with out mention of complication 04/14/2013 Overview: Hemorrhoids Lumbago 04/15/2014 Other extrapyramidal disease and abnormal movement disorder 04/15/2014 Elevated blood pressure read ing without diagnosis of hypertension 07/28/2007 Irritable bowel syndrome Pure hypercholesterolemia Colitis 04/09/2021 Overview: She is on asacol for the past few months, it was started by Dr. Merino on recommendation of Dr. Angeline nath Last Assessment & Plan: She is on asacol for the past few months, it was started by Dr. Merino on recommendation of Dr. Angeline nath documented as of this encounter (statuses as of 11/15/2022) [facility]04-22-2022 History of Past illness Narrative* Problem Noted Date Diagnosed Date Resolved Date Dysuria 07/06/2021 07/08/2021 Obesity, Class I, BMI 30-34.9 01/12/2021 04/09/2021 GI bleed 01/12/2021 01/14/2021 Acute blood loss anemia 01/12/202112/171 LLQ pain 09/05/2017 04/09/2021 Overview: Added automatically from request for surgery [id number] 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, estrogen receptor positive 06/03/2017 07/06/2021 Personal history of breast cancer 12/18/2016 04/09/2021 Overview: Added automatically from request for surgery [id number] Permanent atrial fibrillation 12/26/2015 07/01/2018 Diverticulitis of large inte angélica without perforation or abscess without bleeding 11/17/2015 04/09/2021 Lymphedema of arm 10/16/2015 04/09/2021 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 female breast 08/04/2015 04/09/2021 Malignant neoplasm of right female breast 07/24/2015 04/09/2021 Overview: The patient had tamoxifen for 5 years and then a gap and resumed after getting cancer for the second time. Last Assessment & Plan: The patient had tamoxifen for 5 years and then a gap and resumed after getting cancer for the second time. Abnormal mammogram of right breast 07/17/2015 04/09/2021 Pain of both shoulder joints 02/21/2015 04/09/2021 Other and unspecified noninf ectious gastroenteritis and colitis(558.9) 11/03/201411/03 Other specified rheumatoid a rthritis, multiple sites 05/06/2014 07/01/2018 Overview: Dx: 2014 She is on methotrexate and plaquenil Last Assessment & Plan: Dx: 2014 She is on methotrexate and plaquenil Acne rosacea 11/07/2013 04/15/2014 Folliculitis 11/07/2013 04/15/2014 Inflamed seborrheic keratosis 11/07/2013 04/15/2014 Xerosis cutis 11/07/2013 04/15/2014 Solar lentigo 11/07/2013 04/15/2014 Crowley angioma 11/07/2013 04/15/2014 Pruritus 11/07/2013 04/15/2014 Backache, unspecified 07/09/20132014 Cutaneous skin tags 12/12/2012 04/14/19 14 Intradermal nevus 12/12/2012 04/14/2013 Melanocytic nevi of trunk 12/12/2012 Dermatofibroma of lower leg 12/12/2012 04/14/2013 Urinary tract infection 09/02/201203/19 Abdominal pain 09/02/2012 04/15/2014 C. difficile colitis 09/02/2012 015 Diverticulitis of colon (wit hout mention of hemorrhage)(562.11) 06/15/2012 04/15/2014 Other Seborrheic Keratoses 05/29/2012 0 04/15/2014 Actinic skin damage 05/29/2012 04/15/19 15 Epidermal cyst: L upper side nose 06/01/2011 04/15/2014 Xerosis cutis 06/01/2011 04/14/2013 Eczema intertrigo 04/25/2011 04/15/2014 Eczematous dermatitis 04/25/20112013 Intertrigo: Irritant fold area dermatitis 04/25/2011 04/14/2013 Urgency of urination 02/13/2011 015 Female stress incontinence 02/13/2011 0 04/15/2014 Pain in joint, pelvic region and thigh 10/09/2009 04/15/2014 Family history of malignant neoplasm of ovary 07/19/19 10 04/14/2013 Solar Lentigines 05/18/2009 04/14/2013 Crowley Angioma//Capillary Angioma 05/18/2009 04/14/2013 Melanocytic nevus of face 05/18/2009 Melanocytic nevus of trunk 05/18/2009 0 04/14/2013 SVT (supraventricular tachycardia) 03/31/2009 04/09/2021 Last Assessment & Plan: She is on coumadin, metoprolol. SEBORRHEIC KERATOSIS: IRRITATED//INFLAMED 02/08/2008 12/12/2012 Viral warts, unspecified 02/08/2008 Benign neoplasm of skin of o ther and unspecified parts of face 02/08/2008 12/12/2012 SEBACEOUS HYPERPLASIA//SEBAC EOUS GLAND DIS NOS 02/08/2008 12/12/2012 Sebaceous cyst 02/08/2008 12/12/2012 Symptomatic menopausal or fe male climacteric states 02/04/2008 04/14/2013 Personal history of malignan t neoplasm of breast 02/04/2008 04/15/2014 Other specified disorder of bladder 02/04/2008 02/13/2011 Nocturia 02/04/2008 04/15/2014 Episode Elevated Glucose after Steriod 10/22/2007 04/15/2014 Diarrhea 10/14/2007 04/14/2013 Abdominal pain, left lower quadrant 10/08/2007 04/14/2013 MALIGN NEOPL BREAST NOS 08/18/200703/19 Postmenopausal atrophic vaginitis 07/28/2007 04/15/2014 HX BREAST CANCER 07/01/2007 04/09/2021 Overview: summer, and 2007. On tamoxifen Last Assessment & Plan: summer, and 2007. 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 01/21/2006 02/17/2012 ELEVATED SGPT 01/21/2006 02/17/2012 SEBORRHEIC KERATOSES 11/25/2005 012 ACTINIC DAMAGE//CHR SOLAR SKIN DAMAGE NOS 11/25/2005 02/17/2012 SURGICAL SCAR & FIBROSIS OF SKIN 11/25/2005 02/17/2012 DERMATOFIBROMAS///BENIGN DARINEL SKIN LEG 11/25/2005 02/17/2012 INTRADERMAL NEVI (MELANOCYTI C)/// DARINEL SKIN TRUNK 11/25/2005 02/17/2012 SKIN TAG PAPILLOMAS///SKIN H YPERTRO/ATROPH NOS 11/25/2005 02/17/2012 Abdominal pain, unspecified site 10/25/2005 02/17/2012 Sprain of neck 07/05/2005 02/17/2012 FATTY INFILTRATION LIVER 05/14/2005 Other diseases of pharynx, n ot elsewhere classified(478.29) 04/14/2013 Unspecified hemorrhoids with out mention of complication 04/14/2013 Overview: Hemorrhoids Lumbago 04/15/2014 Other extrapyramidal disease and abnormal movement disorder 04/15/2014 Elevated blood pressure read ing without diagnosis of hypertension 07/28/2007 Irritable bowel syndrome Pure hypercholesterolemia Colitis 04/09/2021 Overview: She is on asacol for the past few months, it was started by Dr. Merino on recommendation of Dr. Angeline nath Last Assessment & Plan: She is on asacol for the past few months, it was started by Dr. Merino on recommendation of Dr. Angeline nath documented as of this encounter (statuses as of 11/26/2022) [facility]04-22-2022 History of Past illness Narrative* Problem Noted Date Diagnosed Date Resolved Date Dysuria 07/06/2021 07/08/2021 Obesity, Class I, BMI 30-34.9 01/12/2021 04/09/2021 GI bleed 01/12/2021 01/14/2021 Acute blood loss anemia 01/12/2021 10/03/2020 LLQ pain 09/05/2017 04/09/2021 Overview: Added automatically from request for surgery [id number] 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, estrogen receptor positive 06/03/2017 07/06/2021 Personal history of breast cancer 12/18/2016 04/09/2021 Overview: Added automatically from request for surgery [id number] Permanent atrial fibrillation 12/26/2015 07/01/2018 Diverticulitis of large inte angélica without perforation or abscess without bleeding 11/17/2015 04/09/2021 Lymphedema of arm 10/16/2015 04/09/2021 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 female breast 08/04/2015 04/09/2021 Malignant neoplasm of right female breast 07/24/2015 04/09/2021 Overview: The patient had tamoxifen for 5 years and then a gap and resumed after getting cancer for the second time. Last Assessment & Plan: The patient had tamoxifen for 5 years and then a gap and resumed after getting cancer for the second time. Abnormal mammogram of right breast 07/17/2015 04/09/2021 Pain of both shoulder joints 02/21/2015 04/09/2021 Other and unspecified noninf ectious gastroenteritis and colitis(558.9) 11/03/201411/03 Other specified rheumatoid a rthritis, multiple sites 05/06/2014 07/01/2018 Overview: Dx: 2014 She is on methotrexate and plaquenil Last Assessment & Plan: Dx: 2014 She is on methotrexate and plaquenil Acne rosacea 11/07/2013 04/15/2014 Folliculitis 11/07/2013 04/15/2014 Inflamed seborrheic keratosis 11/07/2013 04/15/2014 Xerosis cutis 11/07/2013 04/15/2014 Solar lentigo 11/07/2013 04/15/2014 Crowley angioma 11/07/2013 04/15/2014 Pruritus 11/07/2013 04/15/2014 Backache, unspecified 07/09/20132014 Cutaneous skin tags 12/12/2012 04/14/19 14 Intradermal nevus 12/12/2012 04/14/2013 Melanocytic nevi of trunk 12/12/2012 Dermatofibroma of lower leg 12/12/2012 04/14/2013 Urinary tract infection 09/02/201203/19 Abdominal pain 09/02/2012 04/15/2014 C. difficile colitis 09/02/2012 015 Diverticulitis of colon (wit hout mention of hemorrhage)(562.11) 06/15/2012 04/15/2014 Other Seborrheic Keratoses 05/29/2012 0 04/15/2014 Actinic skin damage 05/29/2012 04/15/19 15 Epidermal cyst: L upper side nose 06/01/2011 04/15/2014 Xerosis cutis 06/01/2011 04/14/2013 Eczema intertrigo 04/25/2011 04/15/2014 Eczematous dermatitis 04/25/20112013 Intertrigo: Irritant fold area dermatitis 04/25/2011 04/14/2013 Urgency of urination 02/13/2011 015 Female stress incontinence 02/13/2011 0 04/15/2014 Pain in joint, pelvic region and thigh 10/09/2009 04/15/2014 Family history of malignant neoplasm of ovary 07/19/19 10 04/14/2013 Solar Lentigines 05/18/2009 04/14/2013 Crowley Angioma//Capillary Angioma 05/18/2009 04/14/2013 Melanocytic nevus of face 05/18/2009 Melanocytic nevus of trunk 05/18/2009 0 04/14/2013 SVT (supraventricular tachycardia) 03/31/2009 04/09/2021 Last Assessment & Plan: She is on coumadin, metoprolol. SEBORRHEIC KERATOSIS: IRRITATED//INFLAMED 02/08/2008 12/12/2012 Viral warts, unspecified 02/08/2008 Benign neoplasm of skin of o ther and unspecified parts of face 02/08/2008 12/12/2012 SEBACEOUS HYPERPLASIA//SEBAC EOUS GLAND DIS NOS 02/08/2008 12/12/2012 Sebaceous cyst 02/08/2008 12/12/2012 Symptomatic menopausal or fe male climacteric states 02/04/2008 04/14/2013 Personal history of malignan t neoplasm of breast 02/04/2008 04/15/2014 Other specified disorder of bladder 02/04/2008 02/13/2011 Nocturia 02/04/2008 04/15/2014 Episode Elevated Glucose after Steriod 10/22/2007 04/15/2014 Diarrhea 10/14/2007 04/14/2013 Abdominal pain, left lower quadrant 10/08/2007 04/14/2013 MALIGN NEOPL BREAST NOS 08/18/200703/19 Postmenopausal atrophic vaginitis 07/28/2007 04/15/2014 HX BREAST CANCER 07/01/2007 04/09/2021 Overview: summer, and 2007. On tamoxifen Last Assessment & Plan: summer, and 2007. 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 01/21/2006 02/17/2012 ELEVATED SGPT 01/21/2006 02/17/2012 SEBORRHEIC KERATOSES 11/25/2005 012 ACTINIC DAMAGE//CHR SOLAR SKIN DAMAGE NOS 11/25/2005 02/17/2012 SURGICAL SCAR & FIBROSIS OF SKIN 11/25/2005 02/17/2012 DERMATOFIBROMAS///BENIGN DARINEL SKIN LEG 11/25/2005 02/17/2012 INTRADERMAL NEVI (MELANOCYTI C)/// DARINEL SKIN TRUNK 11/25/2005 02/17/2012 SKIN TAG PAPILLOMAS///SKIN H YPERTRO/ATROPH NOS 11/25/2005 02/17/2012 Abdominal pain, unspecified site 10/25/2005 02/17/2012 Sprain of neck 07/05/2005 02/17/2012 FATTY INFILTRATION LIVER 05/14/2005 Other diseases of pharynx, n ot elsewhere classified(478.29) 04/14/2013 Unspecified hemorrhoids with out mention of complication 04/14/2013 Overview: Hemorrhoids Lumbago 04/15/2014 Other extrapyramidal disease and abnormal movement disorder 04/15/2014 Elevated blood pressure read ing without diagnosis of hypertension 07/28/2007 Irritable bowel syndrome Pure hypercholesterolemia Colitis 04/09/2021 Overview: She is on asacol for the past few months, it was started by Dr. Merino on recommendation of Dr. Anegline nath Last Assessment & Plan: She is on asacol for the past few months, it was started by Dr. Merino on recommendation of Dr. 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, estrogen receptor positive 06/03/2017 07/06/2021 Personal history of breast cancer 12/18/2016 04/09/2021 Overview: Added automatically from request for surgery [id number] Permanent atrial fibrillation 12/26/2015 07/01/2018 Diverticulitis of large inte angélica without perforation or abscess without bleeding 11/17/2015 04/09/2021 Lymphedema of arm 10/16/2015 04/09/2021 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 female breast 08/04/2015 04/09/2021 Malignant neoplasm of right female breast 07/24/2015 04/09/2021 Overview: The patient had tamoxifen for 5 years and then a gap and resumed after getting cancer for the second time. Last Assessment & Plan: The patient had tamoxifen for 5 years and then a gap and resumed after getting cancer for the second time. Abnormal mammogram of right breast 07/17/2015 04/09/2021 Pain of both shoulder joints 02/21/2015 04/09/2021 Other and unspecified noninf ectious gastroenteritis and colitis(558.9) 11/03/201411/03 Other specified rheumatoid a rthritis, multiple sites 05/06/2014 07/01/2018 Overview: Dx: 2014 She is on methotrexate and plaquenil Last Assessment & Plan: Dx: 2014 She is on methotrexate and plaquenil Acne rosacea 11/07/2013 04/15/2014 Folliculitis 11/07/2013 04/15/2014 Inflamed seborrheic keratosis 11/07/2013 04/15/2014 Xerosis cutis 11/07/2013 04/15/2014 Solar lentigo 11/07/2013 04/15/2014 Crowley angioma 11/07/2013 04/15/2014 Pruritus 11/07/2013 04/15/2014 Backache, unspecified 07/09/20132014 Cutaneous skin tags 12/12/2012 04/14/19 14 Intradermal nevus 12/12/2012 04/14/2013 Melanocytic nevi of trunk 12/12/2012 Dermatofibroma of lower leg 12/12/2012 04/14/2013 Urinary tract infection 09/02/201203/19 Abdominal pain 09/02/2012 04/15/2014 C. difficile colitis 09/02/2012 015 Diverticulitis of colon (wit hout mention of hemorrhage)(562.11) 06/15/2012 04/15/2014 Other Seborrheic Keratoses 05/29/2012 0 04/15/2014 Actinic skin damage 05/29/2012 04/15/19 15 Epidermal cyst: L upper side nose 06/01/2011 04/15/2014 Xerosis cutis 06/01/2011 04/14/2013 Eczema intertrigo 04/25/2011 04/15/2014 Eczematous dermatitis 04/25/20112013 Intertrigo: Irritant fold area dermatitis 04/25/2011 04/14/2013 Urgency of urination 02/13/2011 015 Female stress incontinence 02/13/2011 0 04/15/2014 Pain in joint, pelvic region and thigh 10/09/2009 04/15/2014 Family history of malignant neoplasm of ovary 07/19/19 10 04/14/2013 Solar Lentigines 05/18/2009 04/14/2013 Crowley Angioma//Capillary Angioma 05/18/2009 04/14/2013 Melanocytic nevus of face 05/18/2009 Melanocytic nevus of trunk 05/18/2009 0 04/14/2013 SVT (supraventricular tachycardia) 03/31/2009 04/09/2021 Last Assessment & Plan: She is on coumadin, metoprolol. SEBORRHEIC KERATOSIS: IRRITATED//INFLAMED 02/08/2008 12/12/2012 Viral warts, unspecified 02/08/2008 Benign neoplasm of skin of o ther and unspecified parts of face 02/08/2008 12/12/2012 SEBACEOUS HYPERPLASIA//SEBAC EOUS GLAND DIS NOS 02/08/2008 12/12/2012 Sebaceous cyst 02/08/2008 12/12/2012 Symptomatic menopausal or fe male climacteric states 02/04/2008 04/14/2013 Personal history of malignan t neoplasm of breast 02/04/2008 04/15/2014 Other specified disorder of bladder 02/04/2008 02/13/2011 Nocturia 02/04/2008 04/15/2014 Episode Elevated Glucose after Steriod 10/22/2007 04/15/2014 Diarrhea 10/14/2007 04/14/2013 Abdominal pain, left lower quadrant 10/08/2007 04/14/2013 MALIGN NEOPL BREAST NOS 08/18/200703/19 Postmenopausal atrophic vaginitis 07/28/2007 04/15/2014 HX BREAST CANCER 07/01/2007 04/09/2021 Overview: Summer of 2015, and 2007. On tamoxifen Last Assessment & Plan: Summer of 2015, and 2007. 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 01/21/2006 02/17/2012 ELEVATED SGPT 01/21/2006 02/17/2012 SEBORRHEIC KERATOSES 11/25/2005 012 ACTINIC DAMAGE//CHR SOLAR SKIN DAMAGE NOS 11/25/2005 02/17/2012 SURGICAL SCAR & FIBROSIS OF SKIN 11/25/2005 02/17/2012 DERMATOFIBROMAS///BENIGN DARINEL SKIN LEG 11/25/2005 02/17/2012 INTRADERMAL NEVI (MELANOCYTI C)/// DARINEL SKIN TRUNK 11/25/2005 02/17/2012 SKIN TAG PAPILLOMAS///SKIN H YPERTRO/ATROPH NOS 11/25/2005 02/17/2012 Abdominal pain, unspecified site 10/25/2005 02/17/2012 Sprain of neck 07/05/2005 02/17/2012 FATTY INFILTRATION LIVER 05/14/2005 Other diseases of pharynx, n ot elsewhere classified(478.29) 04/14/2013 Unspecified hemorrhoids with out mention of complication 04/14/2013 Overview: Hemorrhoids Lumbago 04/15/2014 Other extrapyramidal disease and abnormal movement disorder 04/15/2014 Elevated blood pressure read ing without diagnosis of hypertension 07/28/2007 Irritable bowel syndrome Pure hypercholesterolemia Colitis 04/09/2021 Overview: She is on asacol for the past few months, it was started by Dr. Merino on recommendation of Dr. Angeline nath Last Assessment & Plan: She is on asacol for the past few months, it was started by Dr. Merino on recommendation of Dr. Angeline nath documented as of this encounter (statuses as of 12/14/2022) [facility]04[facility] History of Past illness Narrative* Problem Noted Date Diagnosed Date Resolved Date Dysuria 07/06/2021 07/08/2021 Obesity, Class I, BMI 30-34.9 01/12/2021 04/09/2021 GI bleed 01/12/2021 01/14/2021 Acute blood loss anemia 01/12/202112/17 LLQ pain 09/05/2017 04/09/2021 Overview: Added automatically from request for surgery [id number] 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, estrogen receptor positive (HCC) 06/03/2017 07/06/2021 Personal history of breast cancer 12/18/2016 04/09/2021 Overview: Added automatically from request for surgery [id number] Permanent atrial fibrillation 12/26/2015 07/01/2018 Diverticulitis of large inte angélica without perforation or abscess without bleeding 11/17/2015 04/09/2021 Lymphedema of arm 10/16/2015 04/09/2021 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 female breast 08/04/2015 04/09/2021 Malignant neoplasm of right female breast 07/24/2015 04/09/2021 Overview: The patient had tamoxifen for 5 years and then a gap and resumed after getting cancer for the second time. Last Assessment & Plan: The patient had tamoxifen for 5 years and then a gap and resumed after getting cancer for the second time. Abnormal mammogram of right breast 07/17/2015 04/09/2021 Pain of both shoulder joints 02/21/2015 04/09/2021 Other and unspecified noninf ectious gastroenteritis and colitis(558.9) 11/03/201411/03 Other specified rheumatoid a rthritis, multiple sites 05/06/2014 07/01/2018 Overview: Dx: 2014 She is on methotrexate and plaquenil Last Assessment & Plan: Dx: 2014 She is on methotrexate and plaquenil Acne rosacea 11/07/2013 04/15/2014 Folliculitis 11/07/2013 04/15/2014 Inflamed seborrheic keratosis 11/07/2013 04/15/2014 Xerosis cutis 11/07/2013 04/15/2014 Solar lentigo 11/07/2013 04/15/2014 Crowley angioma 11/07/2013 04/15/2014 Pruritus 11/07/2013 04/15/2014 Backache, unspecified 07/09/20132014 Cutaneous skin tags 12/12/2012 04/14/19 14 Intradermal nevus 12/12/2012 04/14/2013 Melanocytic nevi of trunk 12/12/2012 Dermatofibroma of lower leg 12/12/2012 04/14/2013 Urinary tract infection 09/02/201203/19 Abdominal pain 09/02/2012 04/15/2014 C. difficile colitis 09/02/2012 015 Diverticulitis of colon (wit hout mention of hemorrhage)(562.11) 06/15/2012 04/15/2014 Other Seborrheic Keratoses 05/29/2012 0 04/15/2014 Actinic skin damage 05/29/2012 04/15/19 15 Epidermal cyst: L upper side nose 06/01/2011 04/15/2014 Xerosis cutis 06/01/2011 04/14/2013 Eczema intertrigo 04/25/2011 04/15/2014 Eczematous dermatitis 04/25/20112013 Intertrigo: Irritant fold area dermatitis 04/25/2011 04/14/2013 Urgency of urination 02/13/2011 015 Female stress incontinence 02/13/2011 0 04/15/2014 Pain in joint, pelvic region and thigh 10/09/2009 04/15/2014 Family history of malignant neoplasm of ovary 07/19/19 10 04/14/2013 Solar Lentigines 05/18/2009 04/14/2013 Crowley Angioma//Capillary Angioma 05/18/2009 04/14/2013 Melanocytic nevus of face 05/18/2009 Melanocytic nevus of trunk 05/18/2009 0 04/14/2013 SVT (supraventricular tachycardia) 03/31/2009 04/09/2021 Last Assessment & Plan: She is on coumadin, metoprolol. SEBORRHEIC KERATOSIS: IRRITATED//INFLAMED 02/08/2008 12/12/2012 Viral warts, unspecified 02/08/2008 Benign neoplasm of skin of o ther and unspecified parts of face 02/08/2008 12/12/2012 SEBACEOUS HYPERPLASIA//SEBAC EOUS GLAND DIS NOS 02/08/2008 12/12/2012 Sebaceous cyst 02/08/2008 12/12/2012 Symptomatic menopausal or fe male climacteric states 02/04/2008 04/14/2013 Personal history of malignan t neoplasm of breast 02/04/2008 04/15/2014 Other specified disorder of bladder 02/04/2008 02/13/2011 Nocturia 02/04/2008 04/15/2014 Episode Elevated Glucose after Steriod 10/22/2007 04/15/2014 Diarrhea 10/14/2007 04/14/2013 Abdominal pain, left lower quadrant 10/08/2007 04/14/2013 MALIGN NEOPL BREAST NOS 08/18/200703/19 Postmenopausal atrophic vaginitis 07/28/2007 04/15/2014 HX BREAST CANCER 07/01/2007 04/09/2021 Overview: summer, and 2007. On tamoxifen Last Assessment & Plan: summer, and 2007. 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 01/21/2006 02/17/2012 ELEVATED SGPT 01/21/2006 02/17/2012 SEBORRHEIC KERATOSES 11/25/2005 012 ACTINIC DAMAGE//CHR SOLAR SKIN DAMAGE NOS 11/25/2005 02/17/2012 SURGICAL SCAR & FIBROSIS OF SKIN 11/25/2005 02/17/2012 DERMATOFIBROMAS///BENIGN DARINEL SKIN LEG 11/25/2005 02/17/2012 INTRADERMAL NEVI (MELANOCYTI C)/// DARINEL SKIN TRUNK 11/25/2005 02/17/2012 SKIN TAG PAPILLOMAS///SKIN H YPERTRO/ATROPH NOS 11/25/2005 02/17/2012 Abdominal pain, unspecified site 10/25/2005 02/17/2012 Sprain of neck 07/05/2005 02/17/2012 FATTY INFILTRATION LIVER 05/14/2005 Other diseases of pharynx, n ot elsewhere classified(478.29) 04/14/2013 Unspecified hemorrhoids with out mention of complication 04/14/2013 Overview: Hemorrhoids Lumbago 04/15/2014 Other extrapyramidal disease and abnormal movement disorder 04/15/2014 Elevated blood pressure read ing without diagnosis of hypertension 07/28/2007 Irritable bowel syndrome Pure hypercholesterolemia Colitis 04/09/2021 Overview: She is on asacol for the past few months, it was started by Dr. Merino on recommendation of Dr. Angeline nath Last Assessment & Plan: She is on asacol for the past few months, it was started by Dr. Merino on recommendation of Dr. Angeline nath documented as of this encounter (statuses as of 12/18/2022) [facility]04-[facility]-2022 History of Past illness Narrative* Problem Noted Date Diagnosed Date Resolved Date Dysuria 07/06/2021 07/08/2021 Obesity, Class I, BMI 30-34.9 01/12/2021 04/09/2021 GI bleed 01/12/2021 01/14/2021 Acute blood loss anemia 01/12/2021 10/03/2020 LLQ pain 09/05/2017 04/09/2021 Overview: Added automatically from request for surgery [id number] 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, estrogen receptor positive (HCC) 06/03/2017 07/06/2021 Personal history of breast cancer 12/18/2016 04/09/2021 Overview: Added automatically from request for surgery [id number] Permanent atrial fibrillation 12/26/2015 07/01/2018 Diverticulitis of large inte angélica without perforation or abscess without bleeding 11/17/2015 04/09/2021 Lymphedema of arm 10/16/2015 04/09/2021 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 female breast 08/04/2015 04/09/2021 Malignant neoplasm of right female breast 07/24/2015 04/09/2021 Overview: The patient had tamoxifen for 5 years and then a gap and resumed after getting cancer for the second time. Last Assessment & Plan: The patient had tamoxifen for 5 years and then a gap and resumed after getting cancer for the second time. Abnormal mammogram of right breast 07/17/2015 04/09/2021 Pain of both shoulder joints 02/21/2015 04/09/2021 Other and unspecified noninf ectious gastroenteritis and colitis(558.9) 11/03/201411/03 Other specified rheumatoid a rthritis, multiple sites 05/06/2014 07/01/2018 Overview: Dx: 2014 She is on methotrexate and plaquenil Last Assessment & Plan: Dx: 2014 She is on methotrexate and plaquenil Acne rosacea 11/07/2013 04/15/2014 Folliculitis 11/07/2013 04/15/2014 Inflamed seborrheic keratosis 11/07/2013 04/15/2014 Xerosis cutis 11/07/2013 04/15/2014 Solar lentigo 11/07/2013 04/15/2014 Crowley angioma 11/07/2013 04/15/2014 Pruritus 11/07/2013 04/15/2014 Backache, unspecified 07/09/20132014 Cutaneous skin tags 12/12/2012 04/14/19 14 Intradermal nevus 12/12/2012 04/14/2013 Melanocytic nevi of trunk 12/12/2012 Dermatofibroma of lower leg 12/12/2012 04/14/2013 Urinary tract infection 09/02/201203/19 Abdominal pain 09/02/2012 04/15/2014 C. difficile colitis 09/02/2012 015 Diverticulitis of colon (wit hout mention of hemorrhage)(562.11) 06/15/2012 04/15/2014 Other Seborrheic Keratoses 05/29/2012 0 04/15/2014 Actinic skin damage 05/29/2012 04/15/19 15 Epidermal cyst: L upper side nose 06/01/2011 04/15/2014 Xerosis cutis 06/01/2011 04/14/2013 Eczema intertrigo 04/25/2011 04/15/2014 Eczematous dermatitis 04/25/20112013 Intertrigo: Irritant fold area dermatitis 04/25/2011 04/14/2013 Urgency of urination 02/13/2011 015 Female stress incontinence 02/13/2011 0 04/15/2014 Pain in joint, pelvic region and thigh 10/09/2009 04/15/2014 Family history of malignant neoplasm of ovary 07/19/19 10 04/14/2013 Solar Lentigines 05/18/2009 04/14/2013 Crowley Angioma//Capillary Angioma 05/18/2009 04/14/2013 Melanocytic nevus of face 05/18/2009 Melanocytic nevus of trunk 05/18/2009 0 04/14/2013 SVT (supraventricular tachycardia) 03/31/2009 04/09/2021 Last Assessment & Plan: She is on coumadin, metoprolol. SEBORRHEIC KERATOSIS: IRRITATED//INFLAMED 02/08/2008 12/12/2012 Viral warts, unspecified 02/08/2008 Benign neoplasm of skin of o ther and unspecified parts of face 02/08/2008 12/12/2012 SEBACEOUS HYPERPLASIA//SEBAC EOUS GLAND DIS NOS 02/08/2008 12/12/2012 Sebaceous cyst 02/08/2008 12/12/2012 Symptomatic menopausal or fe male climacteric states 02/04/2008 04/14/2013 Personal history of malignan t neoplasm of breast 02/04/2008 04/15/2014 Other specified disorder of bladder 02/04/2008 02/13/2011 Nocturia 02/04/2008 04/15/2014 Episode Elevated Glucose after Steriod 10/22/2007 04/15/2014 Diarrhea 10/14/2007 04/14/2013 Abdominal pain, left lower quadrant 10/08/2007 04/14/2013 MALIGN NEOPL BREAST NOS 08/18/200703/19 Postmenopausal atrophic vaginitis 07/28/2007 04/15/2014 HX BREAST CANCER 07/01/2007 04/09/2021 Overview: summer, and 2007. On tamoxifen Last Assessment & Plan: summer, and 2007. 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 01/21/2006 02/17/2012 ELEVATED SGPT 01/21/2006 02/17/2012 SEBORRHEIC KERATOSES 11/25/2005 012 ACTINIC DAMAGE//CHR SOLAR SKIN DAMAGE NOS 11/25/2005 02/17/2012 SURGICAL SCAR & FIBROSIS OF SKIN 11/25/2005 02/17/2012 DERMATOFIBROMAS///BENIGN DARINEL SKIN LEG 11/25/2005 02/17/2012 INTRADERMAL NEVI (MELANOCYTI C)/// DARINEL SKIN TRUNK 11/25/2005 02/17/2012 SKIN TAG PAPILLOMAS///SKIN H YPERTRO/ATROPH NOS 11/25/2005 02/17/2012 Abdominal pain, unspecified site 10/25/2005 02/17/2012 Sprain of neck 07/05/2005 02/17/2012 FATTY INFILTRATION LIVER 05/14/2005 Other diseases of pharynx, n ot elsewhere classified(478.29) 04/14/2013 Unspecified hemorrhoids with out mention of complication 04/14/2013 Overview: Hemorrhoids Lumbago 04/15/2014 Other extrapyramidal disease and abnormal movement disorder 04/15/2014 Elevated blood pressure read ing without diagnosis of hypertension 07/28/2007 Irritable bowel syndrome Pure hypercholesterolemia Colitis 04/09/2021 Overview: She is on asacol for the past few months, it was started by Dr. Merino on recommendation of Dr. Angeline nath Last Assessment & Plan: She is on asacol for the past few months, it was started by Dr. Merino on recommendation of Dr. 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, estrogen receptor positive (HCC) 06/03/2017 07/06/2021 Personal history of breast cancer 12/18/2016 04/09/2021 Overview: Added automatically from request for surgery [id number] Permanent atrial fibrillation 12/26/2015 07/01/2018 Diverticulitis of large inte angélica without perforation or abscess without bleeding 11/17/2015 04/09/2021 Lymphedema of arm 10/16/2015 04/09/2021 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 female breast 08/04/2015 04/09/2021 Malignant neoplasm of right female breast 07/24/2015 04/09/2021 Overview: The patient had tamoxifen for 5 years and then a gap and resumed after getting cancer for the second time. Last Assessment & Plan: The patient had tamoxifen for 5 years and then a gap and resumed after getting cancer for the second time. Abnormal mammogram of right breast 07/17/2015 04/09/2021 Pain of both shoulder joints 02/21/2015 04/09/2021 Other and unspecified noninf ectious gastroenteritis and colitis(558.9) 11/03/201411/03 Other specified rheumatoid a rthritis, multiple sites 05/06/2014 07/01/2018 Overview: Dx: 2014 She is on methotrexate and plaquenil Last Assessment & Plan: Dx: 2014 She is on methotrexate and plaquenil Acne rosacea 11/07/2013 04/15/2014 Folliculitis 11/07/2013 04/15/2014 Inflamed seborrheic keratosis 11/07/2013 04/15/2014 Xerosis cutis 11/07/2013 04/15/2014 Solar lentigo 11/07/2013 04/15/2014 Crowley angioma 11/07/2013 04/15/2014 Pruritus 11/07/2013 04/15/2014 Backache, unspecified 07/09/20132014 Cutaneous skin tags 12/12/2012 04/14/19 14 Intradermal nevus 12/12/2012 04/14/2013 Melanocytic nevi of trunk 12/12/2012 Dermatofibroma of lower leg 12/12/2012 04/14/2013 Urinary tract infection 09/02/201203/19 Abdominal pain 09/02/2012 04/15/2014 C. difficile colitis 09/02/2012 015 Diverticulitis of colon (wit hout mention of hemorrhage)(562.11) 06/15/2012 04/15/2014 Other Seborrheic Keratoses 05/29/2012 0 04/15/2014 Actinic skin damage 05/29/2012 04/15/19 15 Epidermal cyst: L upper side nose 06/01/2011 04/15/2014 Xerosis cutis 06/01/2011 04/14/2013 Eczema intertrigo 04/25/2011 04/15/2014 Eczematous dermatitis 04/25/20112013 Intertrigo: Irritant fold area dermatitis 04/25/2011 04/14/2013 Urgency of urination 02/13/2011 015 Female stress incontinence 02/13/2011 0 04/15/2014 Pain in joint, pelvic region and thigh 10/09/2009 04/15/2014 Family history of malignant neoplasm of ovary 07/19/19 10 04/14/2013 Solar Lentigines 05/18/2009 04/14/2013 Crowley Angioma//Capillary Angioma 05/18/2009 04/14/2013 Melanocytic nevus of face 05/18/2009 Melanocytic nevus of trunk 05/18/2009 0 04/14/2013 SVT (supraventricular tachycardia) 03/31/2009 04/09/2021 Last Assessment & Plan: She is on coumadin, metoprolol. SEBORRHEIC KERATOSIS: IRRITATED//INFLAMED 02/08/2008 12/12/2012 Viral warts, unspecified 02/08/2008 Benign neoplasm of skin of o ther and unspecified parts of face 02/08/2008 12/12/2012 SEBACEOUS HYPERPLASIA//SEBAC EOUS GLAND DIS NOS 02/08/2008 12/12/2012 Sebaceous cyst 02/08/2008 12/12/2012 Symptomatic menopausal or fe male climacteric states 02/04/2008 04/14/2013 Personal history of malignan t neoplasm of breast 02/04/2008 04/15/2014 Other specified disorder of bladder 02/04/2008 02/13/2011 Nocturia 02/04/2008 04/15/2014 Episode Elevated Glucose after Steriod 10/22/2007 04/15/2014 Diarrhea 10/14/2007 04/14/2013 Abdominal pain, left lower quadrant 10/08/2007 04/14/2013 MALIGN NEOPL BREAST NOS 08/18/200703/19 Postmenopausal atrophic vaginitis 07/28/2007 04/15/2014 HX BREAST CANCER 07/01/2007 04/09/2021 Overview: summer, and 2007. On tamoxifen Last Assessment & Plan: summer, and 2007. 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 01/21/2006 02/17/2012 ELEVATED SGPT 01/21/2006 02/17/2012 SEBORRHEIC KERATOSES 11/25/2005 012 ACTINIC DAMAGE//CHR SOLAR SKIN DAMAGE NOS 11/25/2005 02/17/2012 SURGICAL SCAR & FIBROSIS OF SKIN 11/25/2005 02/17/2012 DERMATOFIBROMAS///BENIGN DARINEL SKIN LEG 11/25/2005 02/17/2012 INTRADERMAL NEVI (MELANOCYTI C)/// DARINEL SKIN TRUNK 11/25/2005 02/17/2012 SKIN TAG PAPILLOMAS///SKIN H YPERTRO/ATROPH NOS 11/25/2005 02/17/2012 Abdominal pain, unspecified site 10/25/2005 02/17/2012 Sprain of neck 07/05/2005 02/17/2012 FATTY INFILTRATION LIVER 05/14/2005 Other diseases of pharynx, n ot elsewhere classified(478.29) 04/14/2013 Unspecified hemorrhoids with out mention of complication 04/14/2013 Overview: Hemorrhoids Lumbago 04/15/2014 Other extrapyramidal disease and abnormal movement disorder 04/15/2014 Elevated blood pressure read ing without diagnosis of hypertension 07/28/2007 Irritable bowel syndrome Pure hypercholesterolemia Colitis 04/09/2021 Overview: She is on asacol for the past few months, it was started by Dr. Merino on recommendation of Dr. Angeline nath Last Assessment & Plan: She is on asacol for the past few months, it was started by Dr. Merino on recommendation of Dr. 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, estrogen receptor positive 06/03/2017 07/06/2021 Personal history of breast cancer 12/18/2016 04/09/2021 Overview: Added automatically from request for surgery [id number] Permanent atrial fibrillation 12/26/2015 07/01/2018 Diverticulitis of large inte angélica without perforation or abscess without bleeding 11/17/2015 04/09/2021 Lymphedema of arm 10/16/2015 04/09/2021 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 female breast 08/04/2015 04/09/2021 Malignant neoplasm of right female breast 07/24/2015 04/09/2021 Overview: The patient had tamoxifen for 5 years and then a gap and resumed after getting cancer for the second time. Last Assessment & Plan: The patient had tamoxifen for 5 years and then a gap and resumed after getting cancer for the second time. Abnormal mammogram of right breast 07/17/2015 04/09/2021 Pain of both shoulder joints 02/21/2015 04/09/2021 Other and unspecified noninf ectious gastroenteritis and colitis(558.9) 11/03/201411/03 Other specified rheumatoid a rthritis, multiple sites 05/06/2014 07/01/2018 Overview: Dx: 2014 She is on methotrexate and plaquenil Last Assessment & Plan: Dx: 2014 She is on methotrexate and plaquenil Acne rosacea 11/07/2013 04/15/2014 Folliculitis 11/07/2013 04/15/2014 Inflamed seborrheic keratosis 11/07/2013 04/15/2014 Xerosis cutis 11/07/2013 04/15/2014 Solar lentigo 11/07/2013 04/15/2014 Crowley angioma 11/07/2013 04/15/2014 Pruritus 11/07/2013 04/15/2014 Backache, unspecified 07/09/20132014 Cutaneous skin tags 12/12/2012 04/14/19 14 Intradermal nevus 12/12/2012 04/14/2013 Melanocytic nevi of trunk 12/12/2012 Dermatofibroma of lower leg 12/12/2012 04/14/2013 Urinary tract infection 09/02/201203/19 Abdominal pain 09/02/2012 04/15/2014 C. difficile colitis 09/02/2012 015 Diverticulitis of colon (wit hout mention of hemorrhage)(562.11) 06/15/2012 04/15/2014 Other Seborrheic Keratoses 05/29/2012 0 04/15/2014 Actinic skin damage 05/29/2012 04/15/19 15 Epidermal cyst: L upper side nose 06/01/2011 04/15/2014 Xerosis cutis 06/01/2011 04/14/2013 Eczema intertrigo 04/25/2011 04/15/2014 Eczematous dermatitis 04/25/20112013 Intertrigo: Irritant fold area dermatitis 04/25/2011 04/14/2013 Urgency of urination 02/13/2011 015 Female stress incontinence 02/13/2011 0 04/15/2014 Pain in joint, pelvic region and thigh 10/09/2009 04/15/2014 Family history of malignant neoplasm of ovary 07/19/19 10 04/14/2013 Solar Lentigines 05/18/2009 04/14/2013 Crowley Angioma//Capillary Angioma 05/18/2009 04/14/2013 Melanocytic nevus of face 05/18/2009 Melanocytic nevus of trunk 05/18/2009 0 04/14/2013 SVT (supraventricular tachycardia) 03/31/2009 04/09/2021 Last Assessment & Plan: She is on coumadin, metoprolol. SEBORRHEIC KERATOSIS: IRRITATED//INFLAMED 02/08/2008 12/12/2012 Viral warts, unspecified 02/08/2008 Benign neoplasm of skin of o ther and unspecified parts of face 02/08/2008 12/12/2012 SEBACEOUS HYPERPLASIA//SEBAC EOUS GLAND DIS NOS 02/08/2008 12/12/2012 Sebaceous cyst 02/08/2008 12/12/2012 Symptomatic menopausal or fe male climacteric states 02/04/2008 04/14/2013 Personal history of malignan t neoplasm of breast 02/04/2008 04/15/2014 Other specified disorder of bladder 02/04/2008 02/13/2011 Nocturia 02/04/2008 04/15/2014 Episode Elevated Glucose after Steriod 10/22/2007 04/15/2014 Diarrhea 10/14/2007 04/14/2013 Abdominal pain, left lower quadrant 10/08/2007 04/14/2013 MALIGN NEOPL BREAST NOS 08/18/200703/19 Postmenopausal atrophic vaginitis 07/28/2007 04/15/2014 HX BREAST CANCER 07/01/2007 04/09/2021 Overview: Summer of 2015, and 2007. On tamoxifen Last Assessment & Plan: Summer of 2015, and 2007. 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 01/21/2006 02/17/2012 ELEVATED SGPT 01/21/2006 02/17/2012 SEBORRHEIC KERATOSES 11/25/2005 012 ACTINIC DAMAGE//CHR SOLAR SKIN DAMAGE NOS 11/25/2005 02/17/2012 SURGICAL SCAR & FIBROSIS OF SKIN 11/25/2005 02/17/2012 DERMATOFIBROMAS///BENIGN DARINEL SKIN LEG 11/25/2005 02/17/2012 INTRADERMAL NEVI (MELANOCYTI C)/// DARINEL SKIN TRUNK 11/25/2005 02/17/2012 SKIN TAG PAPILLOMAS///SKIN H YPERTRO/ATROPH NOS 11/25/2005 02/17/2012 Abdominal pain, unspecified site 10/25/2005 02/17/2012 Sprain of neck 07/05/2005 02/17/2012 FATTY INFILTRATION LIVER 05/14/2005 Other diseases of pharynx, n ot elsewhere classified(478.29) 04/14/2013 Unspecified hemorrhoids with out mention of complication 04/14/2013 Overview: Hemorrhoids Lumbago 04/15/2014 Other extrapyramidal disease and abnormal movement disorder 04/15/2014 Elevated blood pressure read ing without diagnosis of hypertension 07/28/2007 Irritable bowel syndrome Pure hypercholesterolemia Colitis 04/09/2021 Overview: She is on asacol for the past few months, it was started by Dr. Merino on recommendation of Dr. Angeline nath Last Assessment & Plan: She is on asacol for the past few months, it was started by Dr. Merino on recommendation of Dr. 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, estrogen receptor positive 06/03/2017 07/06/2021 Personal history of breast cancer 12/18/2016 04/09/2021 Overview: Added automatically from request for surgery [id number] Permanent atrial fibrillation 12/26/2015 07/01/2018 Diverticulitis of large inte angélica without perforation or abscess without bleeding 11/17/2015 04/09/2021 Lymphedema of arm 10/16/2015 04/09/2021 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 female breast 08/04/2015 04/09/2021 Malignant neoplasm of right female breast 07/24/2015 04/09/2021 Overview: The patient had tamoxifen for 5 years and then a gap and resumed after getting cancer for the second time. Last Assessment & Plan: The patient had tamoxifen for 5 years and then a gap and resumed after getting cancer for the second time. Abnormal mammogram of right breast 07/17/2015 04/09/2021 Pain of both shoulder joints 02/21/2015 04/09/2021 Other and unspecified noninf ectious gastroenteritis and colitis(558.9) 11/03/201411/03 Other specified rheumatoid a rthritis, multiple sites 05/06/2014 07/01/2018 Overview: Dx: 2014 She is on methotrexate and plaquenil Last Assessment & Plan: Dx: 2014 She is on methotrexate and plaquenil Acne rosacea 11/07/2013 04/15/2014 Folliculitis 11/07/2013 04/15/2014 Inflamed seborrheic keratosis 11/07/2013 04/15/2014 Xerosis cutis 11/07/2013 04/15/2014 Solar lentigo 11/07/2013 04/15/2014 Crowley angioma 11/07/2013 04/15/2014 Pruritus 11/07/2013 04/15/2014 Backache, unspecified 07/09/20132014 Cutaneous skin tags 12/12/2012 04/14/19 14 Intradermal nevus 12/12/2012 04/14/2013 Melanocytic nevi of trunk 12/12/2012 Dermatofibroma of lower leg 12/12/2012 04/14/2013 Urinary tract infection 09/02/201203/19 Abdominal pain 09/02/2012 04/15/2014 C. difficile colitis 09/02/2012 015 Diverticulitis of colon (wit hout mention of hemorrhage)(562.11) 06/15/2012 04/15/2014 Other Seborrheic Keratoses 05/29/2012 0 04/15/2014 Actinic skin damage 05/29/2012 04/15/19 15 Epidermal cyst: L upper side nose 06/01/2011 04/15/2014 Xerosis cutis 06/01/2011 04/14/2013 Eczema intertrigo 04/25/2011 04/15/2014 Eczematous dermatitis 04/25/20112013 Intertrigo: Irritant fold area dermatitis 04/25/2011 04/14/2013 Urgency of urination 02/13/2011 015 Female stress incontinence 02/13/2011 0 04/15/2014 Pain in joint, pelvic region and thigh 10/09/2009 04/15/2014 Family history of malignant neoplasm of ovary 07/19/19 10 04/14/2013 Solar Lentigines 05/18/2009 04/14/2013 Crowley Angioma//Capillary Angioma 05/18/2009 04/14/2013 Melanocytic nevus of face 05/18/2009 Melanocytic nevus of trunk 05/18/2009 0 04/14/2013 SVT (supraventricular tachycardia) 03/31/2009 04/09/2021 Last Assessment & Plan: She is on coumadin, metoprolol. SEBORRHEIC KERATOSIS: IRRITATED//INFLAMED 02/08/2008 12/12/2012 Viral warts, unspecified 02/08/2008 Benign neoplasm of skin of o ther and unspecified parts of face 02/08/2008 12/12/2012 SEBACEOUS HYPERPLASIA//SEBAC EOUS GLAND DIS NOS 02/08/2008 12/12/2012 Sebaceous cyst 02/08/2008 12/12/2012 Symptomatic menopausal or fe male climacteric states 02/04/2008 04/14/2013 Personal history of malignan t neoplasm of breast 02/04/2008 04/15/2014 Other specified disorder of bladder 02/04/2008 02/13/2011 Nocturia 02/04/2008 04/15/2014 Episode Elevated Glucose after Steriod 10/22/2007 04/15/2014 Diarrhea 10/14/2007 04/14/2013 Abdominal pain, left lower quadrant 10/08/2007 04/14/2013 MALIGN NEOPL BREAST NOS 08/18/200703/19 Postmenopausal atrophic vaginitis 07/28/2007 04/15/2014 HX BREAST CANCER 07/01/2007 04/09/2021 Overview: summer, and 2007. On tamoxifen Last Assessment & Plan: summer, and 2007. 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 01/21/2006 02/17/2012 ELEVATED SGPT 01/21/2006 02/17/2012 SEBORRHEIC KERATOSES 11/25/2005 012 ACTINIC DAMAGE//CHR SOLAR SKIN DAMAGE NOS 11/25/2005 02/17/2012 SURGICAL SCAR & FIBROSIS OF SKIN 11/25/2005 02/17/2012 DERMATOFIBROMAS///BENIGN DARINEL SKIN LEG 11/25/2005 02/17/2012 INTRADERMAL NEVI (MELANOCYTI C)/// DARINEL SKIN TRUNK 11/25/2005 02/17/2012 SKIN TAG PAPILLOMAS///SKIN H YPERTRO/ATROPH NOS 11/25/2005 02/17/2012 Abdominal pain, unspecified site 10/25/2005 02/17/2012 Sprain of neck 07/05/2005 02/17/2012 FATTY INFILTRATION LIVER 05/14/2005 Other diseases of pharynx, n ot elsewhere classified(478.29) 04/14/2013 Unspecified hemorrhoids with out mention of complication 04/14/2013 Overview: Hemorrhoids Lumbago 04/15/2014 Other extrapyramidal disease and abnormal movement disorder 04/15/2014 Elevated blood pressure read ing without diagnosis of hypertension 07/28/2007 Irritable bowel syndrome Pure hypercholesterolemia Colitis 04/09/2021 Overview: She is on asacol for the past few months, it was started by Dr. Merino on recommendation of Dr. Angeline nath Last Assessment & Plan: She is on asacol for the past few months, it was started by Dr. Merino on recommendation of Dr. 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, estrogen receptor positive (HCC) 06/03/2017 07/06/2021 Personal history of breast cancer 12/18/2016 04/09/2021 Overview: Added automatically from request for surgery [id number] Permanent atrial fibrillation 12/26/2015 07/01/2018 Diverticulitis of large inte angélica without perforation or abscess without bleeding 11/17/2015 04/09/2021 Lymphedema of arm 10/16/2015 04/09/2021 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 female breast 08/04/2015 04/09/2021 Malignant neoplasm of right female breast 07/24/2015 04/09/2021 Overview: The patient had tamoxifen for 5 years and then a gap and resumed after getting cancer for the second time. Last Assessment & Plan: The patient had tamoxifen for 5 years and then a gap and resumed after getting cancer for the second time. Abnormal mammogram of right breast 07/17/2015 04/09/2021 Pain of both shoulder joints 02/21/2015 04/09/2021 Other and unspecified noninf ectious gastroenteritis and colitis(558.9) 11/03/201411/03 Other specified rheumatoid a rthritis, multiple sites 05/06/2014 07/01/2018 Overview: Dx: 2014 She is on methotrexate and plaquenil Last Assessment & Plan: Dx: 2014 She is on methotrexate and plaquenil Acne rosacea 11/07/2013 04/15/2014 Folliculitis 11/07/2013 04/15/2014 Inflamed seborrheic keratosis 11/07/2013 04/15/2014 Xerosis cutis 11/07/2013 04/15/2014 Solar lentigo 11/07/2013 04/15/2014 Crowley angioma 11/07/2013 04/15/2014 Pruritus 11/07/2013 04/15/2014 Backache, unspecified 07/09/20132014 Cutaneous skin tags 12/12/2012 04/14/19 14 Intradermal nevus 12/12/2012 04/14/2013 Melanocytic nevi of trunk 12/12/2012 Dermatofibroma of lower leg 12/12/2012 04/14/2013 Urinary tract infection 09/02/201203/19 Abdominal pain 09/02/2012 04/15/2014 C. difficile colitis 09/02/2012 015 Diverticulitis of colon (wit hout mention of hemorrhage)(562.11) 06/15/2012 04/15/2014 Other Seborrheic Keratoses 05/29/2012 0 04/15/2014 Actinic skin damage 05/29/2012 04/15/19 15 Epidermal cyst: L upper side nose 06/01/2011 04/15/2014 Xerosis cutis 06/01/2011 04/14/2013 Eczema intertrigo 04/25/2011 04/15/2014 Eczematous dermatitis 04/25/20112013 Intertrigo: Irritant fold area dermatitis 04/25/2011 04/14/2013 Urgency of urination 02/13/2011 015 Female stress incontinence 02/13/2011 0 04/15/2014 Pain in joint, pelvic region and thigh 10/09/2009 04/15/2014 Family history of malignant neoplasm of ovary 07/19/19 10 04/14/2013 Solar Lentigines 05/18/2009 04/14/2013 Crowley Angioma//Capillary Angioma 05/18/2009 04/14/2013 Melanocytic nevus of face 05/18/2009 Melanocytic nevus of trunk 05/18/2009 0 04/14/2013 SVT (supraventricular tachycardia) 03/31/2009 04/09/2021 Last Assessment & Plan: She is on coumadin, metoprolol. SEBORRHEIC KERATOSIS: IRRITATED//INFLAMED 02/08/2008 12/12/2012 Viral warts, unspecified 02/08/2008 Benign neoplasm of skin of o ther and unspecified parts of face 02/08/2008 12/12/2012 SEBACEOUS HYPERPLASIA//SEBAC EOUS GLAND DIS NOS 02/08/2008 12/12/2012 Sebaceous cyst 02/08/2008 12/12/2012 Symptomatic menopausal or fe male climacteric states 02/04/2008 04/14/2013 Personal history of malignan t neoplasm of breast 02/04/2008 04/15/2014 Other specified disorder of bladder 02/04/2008 02/13/2011 Nocturia 02/04/2008 04/15/2014 Episode Elevated Glucose after Steriod 10/22/2007 04/15/2014 Diarrhea 10/14/2007 04/14/2013 Abdominal pain, left lower quadrant 10/08/2007 04/14/2013 MALIGN NEOPL BREAST NOS 08/18/200703/19 Postmenopausal atrophic vaginitis 07/28/2007 04/15/2014 HX BREAST CANCER 07/01/2007 04/09/2021 Overview: Summer of 2015, and 2007. On tamoxifen Last Assessment & Plan: Summer of 2015, and 2007. 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 01/21/2006 02/17/2012 ELEVATED SGPT 01/21/2006 02/17/2012 SEBORRHEIC KERATOSES 11/25/2005 012 ACTINIC DAMAGE//CHR SOLAR SKIN DAMAGE NOS 11/25/2005 02/17/2012 SURGICAL SCAR & FIBROSIS OF SKIN 11/25/2005 02/17/2012 DERMATOFIBROMAS///BENIGN DARINEL SKIN LEG 11/25/2005 02/17/2012 INTRADERMAL NEVI (MELANOCYTI C)/// DARINEL SKIN TRUNK 11/25/2005 02/17/2012 SKIN TAG PAPILLOMAS///SKIN H YPERTRO/ATROPH NOS 11/25/2005 02/17/2012 Abdominal pain, unspecified site 10/25/2005 02/17/2012 Sprain of neck 07/05/2005 02/17/2012 FATTY INFILTRATION LIVER 05/14/2005 Other diseases of pharynx, n ot elsewhere classified(478.29) 04/14/2013 Unspecified hemorrhoids with out mention of complication 04/14/2013 Overview: Hemorrhoids Lumbago 04/15/2014 Other extrapyramidal disease and abnormal movement disorder 04/15/2014 Elevated blood pressure read ing without diagnosis of hypertension 07/28/2007 Irritable bowel syndrome Pure hypercholesterolemia Colitis 04/09/2021 Overview: She is on asacol for the past few months, it was started by Dr. Merino on recommendation of Dr. Angeline nath Last Assessment & Plan: She is on asacol for the past few months, it was started by Dr. Merino on recommendation of Dr. Angeline nath documented as of this encounter (statuses as of 02/12/2023) [facility]04-22-2022 Miscellaneous Notes* Telephone Encounter - Coreen Concepcion MD - 07/06/2021 12:10 PM EDT Had spoken to Dr. Turk regarding her plan- ERCP with prophylactic sphincterotomy and referral for cholecystectomy at [facility]. Unfortunately she will likely become obstructed regardless of ERCP because of this 3.3 cm stone. Called patient's daughter (patient did not answer), patient is currently in Emergency department with worsening pain, fevers. Will likely be admitted, high concern for biliary obstruction. 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 The patient has had symptoms of right upper quadrant pain for 2 weeks. The symptoms have increased, over the past 1 day. The pain does radiate to the back and shoulder. Food does aggravate her symptoms. Alleviating factors include: none. The patient was seen by the emergency room physician 1 day ago. Christian underwent a CT scan. These tests demonstrated cholelithiasis. No mention of cirrhosis from the CT scan and no mention of common duct dilatation or Interhepatic biliary dilatation. Laboratory studies were obtained. This demonstrated an elevated bilirubin of 3.2. Normal white blood cell count. It was recommended the patient be admitted and undergo cholecystectomy. The patient wished to be evaluated by me and if surgery is indicated have that performed. The patient has a history of rheumatoid arthritis. She was maintained on methotrexate. I had seen the patient last fall performed colonoscopy while removed multiple polyps. 1 of those polyps would not look very suspicious returned as well as polyp with high-grade dysplasia. I plan for follow-up colo noscopy in 1 year. Following endoscopy, patient had black tarry stools and presented to [facility] for post polypectomy bleed. At the time of admission the emergency department a CT scan of the abdomen pelvis was obtained. This demonstrated was felt to be acute cystitis, abnormal endometrial thickening and a cirrhotic liver morphology. The patient was found to have a hepatitis B core antibody positive but denied true history of hepatitis that she knew of. The patient had a FibroScan obtained which did indicate a degree of cirrhosis. 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 I saw the patient on Friday. Overall she stated she was feeling about the same. Given the elevatedbilirubin and the difference of opinions from the recent CT scan at [facility] versus the prior scan, I elected to obtain an ultrasound and repeat laboratory studies. The CT scan from [facility] was supposed to be loaded into the clinic system. Unfortunately it has not yet happened. Ultrasound demonstrated: IMPRESSION: Findings are suggestive of liver cirrhosis. Gallbladder stones. Splenomegaly. 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 Laboratory studies: Appointment on 07/05/2021 Component Date Value Ref Range Status Protein, Total 07/05/2021 7.4 6.3 - 8.0 g/dL Final Albumin 07/05/2021 3.1 (A) 3.9 - 4.9 g/dL Final Calcium, Total 07/05/2021 9.2 8.5 - 10.2 mg/dL Final Bilirubin, Total 07/05/2021 2.7 (A) 0.2 - 1.3 mg/dL Final Alkaline Phosphatase 07/05/2021 147 (A) 34 - 123 U/L Final AST 07/05/2021 64 (A) 13 - 35 U/L Final ALT 07/05/2021 38 7 - 38 U/L Final Glucose 07/05/2021 99 74 - 99 mg/dL Final The [place] Diabetes [employer] (ADA) provides guidance for cutoff values for fasting glucose andrandom glucose. The ADA defines fasting as no caloric intake for at least 8 hours. Fasting plasma glucose results between 100 to 125 mg/dL indicate increased risk for diabetes (prediabetes). Fasting plasma glucose results greater than or equal to 126 mg/dL meet the criteria for diagnosis of diabetes. In the absence of unequivocal hyperglycemia, results should be confirmed by repeat testing. In a patient with classic symptoms of hyperglycemia or hyperglycemic crisis, random plasma glucose results greater than or equal to 200 mg/dL meet the criteria for diagnosis of diabetes. Reference: Standards of Medical Care in Diabetes 2016, [place] [employer]. Diabetes Care. 2016.39(Suppl 1). BUN 07/05/2021 13 7 - 21 mg/dL Final Creatinine 07/05/2021 0.73 0.58 - 0.96 mg/dL Final Sodium 07/05/2021 136 136 - 144 mmol/L Final Potassium 07/05/2021 3.9 3.7 - 5.1 mmol/L Final Chloride 07/05/2021 103 97 - 105 mmol/L Final CO2 07/05/2021 24 22 - 30 mmol/L Final Anion Gap 07/05/2021 9 9 - 18 mmol/L Final Estimated Glomerular Filtration Ra* 07/05/2021 81 >=60 mL/min/1.73m Final Estimated Glomerular Filtration Rate (eGFR) is calculated using the 2020 CKD-EPI creatinine equation. This equation utilizes serum creatinine, sex, and age as parameters. The creatinine assay has traceable calibration to isotope dilution- mass spectrometry. Refer to KDIGO guidelines for clinical interpretation. In patients with unstable renal function, e.g. those with acute kidney injury, the eGFRmay not accurately reflect actual GFR. WBC 07/05/2021 12.86 (A) 3.70 - 11.00 k/uL Final RBC 07/05/2021 3.23 (A) 3.90 - 5.20 m/uL Final Hemoglobin 07/05/2021 9.8 (A) 11.5 - 15.5 g/dL Final Hematocrit 07/05/2021 29.8 (A) 36.0 - 46.0 % Final MCV 07/05/2021 92.3 80.0 - 100.0 fL Final MCH 07/05/2021 30.3 26.0 - 34.0 pg Final MCHC 07/05/2021 32.9 30.5 - 36.0 g/dL Final RDW-CV 07/05/2021 16.4 (A) 11.5 - 15.0 % Final Platelet Count 07/05/2021 165 150 - 400 k/uL Final MPV 07/05/2021 9.3 9.0 - 12.7 fL Final Neut% 07/05/2021 78.0 % Final This is an addended report. These results have been addended to a previously final verified report. Abs Neut (Segs + Bands) 07/05/2021 6.79 1.45 - 7.50 k/uL Final This is an addended report. These results have been addended to a previously final verified report. Lymph% 07/05/2021 8.0 % Final This is an addended report. These results have been addended to a previously final verified report. Abs Lymph (Normal + Reactive) 07/05/2021 0.70 (A) 1.00 - 4.00 k/uL Final This is an addended report. These results have been addended to a previously final verified report. [place]% 07/05/2021 14.0 % Final This is an addended report. These results have been addended to a previously final verified report. Abs [place] 07/05/2021 1.22 (A) <0.87 k/uL Final This is an addended report. These results have been addended to a previously final verified report. Eosin% 07/05/2021 0.0 % Final This is an addended report. These results have been addended to a previously final verified report. Abs Eosin 07/05/2021 0.00 <0.46 k/uL Final This is an addended report. These results have been addended to a previously final verified report. Baso% 07/05/2021 0.0 % Final This is an addended report. These results have been addended to a previously final verified report. Abs Baso 07/05/2021 0.00 <0.11 k/uL Final This is an addended report. These results have been addended to a previously final verified report. Platelet Estimate 07/05/2021 Adequate Final Red Cell Morph 07/05/2021 Reviewed Final Polychromasia 07/05/2021 Slight Final Anisocytosis 07/05/2021 Present Final Diff Type 07/05/2021 Auto Final Results Only on 07/04/2021 Component Date Value Ref Range Status INR Home CoaguChek 07/04/2021 3.4 (A) 2.0 - 3.0 Final Referred by noted on Friday to her sexton helper. She question whether the patient truly had biliary colic and whether there should be increased evaluation work-up for her cirrhosis. I added orders for an acute hepatitis profile The patient returns after ultrasound this morning. Generally she is feeling about the same. Howeversince she is stopped her medications for her rheumatoid arthritis she is noting more pain in her lower extremity joints. SIGNIFICANT MEDICAL PROBLEMS: PAST MEDICAL HISTORY Diagnosis Date Abdominal pain, left lower quadrant long standing Arrhythmia Arthritis Asthma Atrial fibrillation (HCC) 2009 Atrophic vaginitis Benign neoplasm of colon C. 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 Tachycardia 2-05/2009 History of recurrent UTIs HX OF BREAST CANCER 06/2007 breast cancer left Hypertension Irritable bowel syndrome Lumbago Mitral valve disorders(424.0) and irregular heartbeat on occasion stress related Mixed stress and urge urinary incontinence Osteoarthrosis, unspecified whether generalized or localized, other specified sites 07/22 vit D 41 Other diseases of pharynx, not elsewhere classified(478.29) Other extrapyramidal disease and abnormal movement disorder PMH - PAST MEDICAL HISTORY OF benign mass on liver PMR (polymyalgia rheumatica) (HCC) 2012 Pure hypercholesterolemia Snoring 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 Symptomatic menopausal or female climacteric states IN HER 50S 05/22 NORMAL BONE DENSITY Syncope Thyroid disease 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 Unspecified hemorrhoids without mention of complication Hemorrhoids Unspecified sleep apnea use CPAP SEVERAL YRS UTI (lower urinary tract infection) 2013 frequent OPERATIONS: PAST SURGICAL HISTORY Procedure Laterality Date ABDOMINAL SURGERY HX APPENDECTOMY 1982 ovarian cyst at same time-one ovary removed right APPENDECTOMY BIOPSY BREAST OPEN INCISIONAL left breast twice BREAST LEFT FINE NEEDLE ASPIRATION left breast BREAST SURGERY HX BX BREAST NEEDLE CORE W/O IMAGING GUIDANCE SPX 06/24/2007 left breast BX BREAST W/DEVICE 1ST LESION STEREOTACTIC GUID 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, DCIS, LCIS BX/EXC LYMPH NODE OPEN DEEP AXILLARY NODE Right COLECTOMY PART W/CECOSTOMY 08/08/2009 sigmoid colectomy COLON SURGERY HX COLONOSCOPY FLX DX W/COLLJ SPEC WHEN PFRMD 04/19/2003 Colonoscopy COLONOSCOPY FLX DX W/COLLJ SPEC WHEN PFRMD 11/03/2014 Colonoscopy COLONOSCOPY FLX DX W/COLLJ SPEC WHEN PFRMD 11/15/2019 Colonoscopy COLONOSCOPY FLX DX W/COLLJ SPEC WHEN PFRMD 01/09/2021 repeat in 6 months COLONOSCOPY W/BIOPSY SINGLE/MULTIPLE 03/23/2010 Clean anastamosis at 15cm few right and lef sided diverticula COLSC FLX W/REMOVAL LESION BY HOT BX FORCEPS 04/27/2007 tubular adenoma COLSC FLX W/REMOVAL LESION BY HOT BX FORCEPS 09/28/2008 small polyp in cecum and 40cm, diverticulosis ESOPHAGOGASTRODUODENOSCOPY TRANSORAL DIAGNOSTIC 01/09/2021 INCISE FINGER TENDON SHEATH Right 06/28/2020 Right ring and little trigger finger releases INCISE FINGER TENDON SHEATH Left 09/28/2020 Left ring trigger finger release INSJ TUNNELED CTR VAD W/SUBQ PORT AGE 5 YR/> 10/06/2007 Right Subclavian MASTECTOMY, SIMPLE, COMPLETE 08/04/2007 left breast with SLND/ALND MASTECTOMY, SIMPLE, COMPLETE Right 08/29/2015 right mastectomy with SLND PAST SURGICAL HISTORY OF bilat CTR, had endometrial bx 2004 PAST SURGICAL HISTORY OF 12/2011 removal of lesion of Lt eyelid PAST SURGICAL HISTORY OF 1982 Rt ovary removed PAST SURGICAL HISTORY OF 01/03/2017 breast surgery REMOVE TONSILS/ADENOIDS,<12 Y/O SALPINGO-OOPHORECTOMY COMPL/PRTL UNI/BI SPX 08/08/2009 left Salpingo-oophorectomy SHAVING SKIN LESION 1 S/N/H/F/G DIAM 0.6-1.0 CM 09/2017 squamous cell SKIN BIOPSY HX TONSILLECTOMY HX TONSILLECTOMY PRIMARY/SECONDARY <AGE 12 1945 Tonsillectomy CURRENT MEDICATIONS: Current Outpatient Medications Medication Sig Dispense Refill albuterol HFA (PROVENTIL HFA, VENTOLIN HFA) 90 mcg/actuation inhaler Inhale 2 Puffs as instructed every 6 hours as needed for wheezing/shortness of breath. 1 Inhaler 0 MEDICAL SUPPLY Zippered compression stockings.- 1 pair. 2 Each 1 levothyroxine (LEVOXYL) 25 mcg tablet Take 1 tablet by mouth once daily. Take on empty stomach. ForThyroid 90 tablet 3 metoprolol tartrate, short acting, (LOPRESSOR) 50 mg tablet TAKE ONE TABLET EVERY MORNING AND HALF TABLET EVERY EVENING 135 tablet 3 omeprazole (PRILOSEC) 20 mg capsule Take 2 capsules by mouth once daily. 180 capsule 3 escitalopram oxalate (LEXAPRO) 10 mg tablet Take 1 tablet by mouth once daily. 90 tablet 3 furosemide (LASIX) 20 mg tablet Take 1 tablet by mouth once daily. (Patient taking differently: Take 20 mg by mouth once daily. Taking every other day ) 90 tablet 3 gabapentin (NEURONTIN) 600 mg tablet Take 0.5 tablets by mouth once daily. 45 tablet 3 warfarin (COUMADIN) 1 mg tablet 2 mg every Tue; 1 mg all other days 90 tablet 1 predniSONE (DELTASONE) 5 mg tablet Take 1 tablet by mouth once daily. 30 tablet 2 Cranberry 400 mg cap Take 2 capsules by mouth once daily. Zinc 50 mg tab Take by mouth once daily. ascorbic acid, vitamin C, (VITAMIN C) 500 mg tablet Take 500 mg by mouth once daily. cholecalciferol (VITAMIN D-3) 50 mcg (2,000 unit) tablet Take 2,000 Units by mouth once daily. Taking 1000 glucosamine/msm/chondroitin A (WPENUSMGFDC-GPSYPZ-LHF ORAL) Take 1 capsule by mouth once daily. 0.9 % sodium chloride (0.9% NACL) Access implanted vascular access device (IVAD) as needed for flush, blood draw or treatment. Flush IVAD with 10-20 mL NS every 4 weeks and PRN when IVAD not in use. 2 Syringe 50 heparin 100 unit/mL injection Access implanted vascular access device (IVAD) as needed for flush, blood draw or treatment. Before de-accessing port, flush with 10-20ml normal saline and follow with 5mL heparin (100 units/mL) (if no heparin allergy). De-access port on treatment completion. 5 mL 100 TURMERIC ROOT EXTRACT ORAL Take 580 mg by mouth once daily. biotin 5,000 mcg subl diclofenac sodium (VOLTAREN) 1 % topical gel Apply 4 g to affected area as needed. 1 Tube 5 triamcinolone acetonide (NASACORT AQ) 55 mcg nasal inhaler Use 2 Sprays in the nose once daily. 1 Bottle 2 Melatonin 5 mg tab Take 10 mg by mouth daily at bedtime. docusate sodium (COLACE) 100 mg capsule Take 1 capsule by mouth twice daily as needed for Constipation. 60 capsule 1 calcium citrate-vitamin D3 (CITRACAL+D) 315-200 mg-unit tab Take 1 tablet by mouth once daily. METHYLCELLULOSE (CITRUCEL ORAL) Take 2 tablets by mouth once daily. cetirizine (ZYRTEC) 10 mg tablet Take 1 tablet by mouth once daily. 90 tablet 3 MULTIVITAMIN TAB Take one(1) tablet daily BY MOUTH. 0 TYLENOL EX-STR 500 MG CAPLET Take two(2) tablets every four(4) to six(6) hours as needed. 0 HYDROcodone-Acetaminophen (NORCO) 7.5-325 mg per tablet Take 1 tablet by mouth every 8 hours as needed for pain for up to 3 days. 9 tablet 0 phenazopyridine (PYRIDIUM) 100 mg tablet Take 2 tablets by mouth three times daily as needed. (Patient not taking: Reported on 07/05/2021 ) 6 tablet 0 Current Facility-Administered Medications Medication Dose Route Frequency Provider Last Rate Last Admin perflutren lipid microspheres 1.3 mL in NaCl (PF) 0.9% 10 mL injection (DEFINITY) INTRAVENOUS DIRECTED PRN Aleks Estes APRN.NIKKI ALCAZAR sodium chloride 0.9 % (flush) 10 mL (BD POSIFLUSH) 10 mL INTRAVENOUS DIRECTED PRN Aleks Estes APRN.NIKKI ALCAZAR ALLERGIES: Clindamycin, Keflex [Cephalexin], Naprosyn [Naproxen], Desmond Inhibitors, Adhesives [Other], Arthrotec 50 [Diclofenac-Misoprostol], Blephamide [Sulfacetamide-Prednisolone], Ditropan [Oxybutynin], Flagyl [Metronidazole Hcl], Flexeril [Cyclobenzaprine], Hctz [Hydrochlorothiazide], Naproxen Sodium, Paxil [Paroxetine], Sulfa (Sulfonamide Antibiotics), and Zestril [Lisinopril] PERSONAL HISTORY: Social History Tobacco Use Smoking status: Never Smoker Smokeless tobacco: Never Used Vaping Use Vaping Use: Never used Substance Use Topics Alcohol use: No Drug use: No FAMILY HISTORY: FAMILY HISTORY Problem Relation Age of Onset other ( age 59 [place]) Mother hypertension and TB other (pancreatic cancer) Father Breast Cancer Sister diagnosed at age 54 Breast Cancer Maternal Aunt diagnosed postmenopausal Breast Cancer Other 2 maternal first cousins Breast Cancer Other maternal cousins Breast Cancer Other maternal great grandmother other (sinus cavity CA) Son other (myeloma) Brother other (healthy) Sister other (ovarian cancer) Sister paternal grandmother REVIEW OF SYMPTOMS: The review of systems data was entered by the nurse and reviewed by me There are no exam notes on file for this visit. PHYSICAL EXAMINATION: General: The patient is 85 year old female, well nourished, well hydrated in no acute distress. Thepatient is oriented to time, place, and person. VITALS: Blood pressure 106/60, pulse 69, temperature 37 C (98.6 F), height 167.6 cm (5' 6 ), fytjxb59.8 kg (176 lb), SpO2 100 %. Body mass index is 28.41 kg/m . HEENT: Normal cephalic, ataumatic, pupils are equally round, sclera are icteric, mucous membranes are moist, oropharynx is clear. Neck has no masses, asymmetry or lymphadenopathy. Thyroid is unremarkable. Respiratory: Clear to auscultation and percussion. Normal respiratory excursion and pattern. Cardiac: Examination is regular rate and rhythm. Abdominal exam: Normoactive bowel sounds, Soft, non tender in the right upper quadrant negative Stern's sign, with no palpable masses. No hepatosplenomegaly. No palpable hernias. Rectal exam: exam deferred Extremities: no clubbing, cyanosis or edema. No adenopathy. Other: LABORATORY VALUES: As Noted RADIOLOGIC STUDIES: As Noted Above, common bile duct was listed as between 4 to 8 mm Assessment IMPRESSION: Cholelithiasis, doubt choledocholithiasis, history of cirrhosis noted on prior CT scan,my impression on ultrasound is likely progressing cirrhosis. PLAN: I plan to have her CT scan images from [facility] loaded in the [facility] system and compare this to the CAT scan from the fall. I plan to have the patient obtain a right upper quadrant ultrasound also to assess for common duct dilatation and to assess for signs of portal venous hypertension. I will plan to forward this note to Dr. Concepcion for her miriam and to evaluate the patient. Her note considered internal jugular liver biopsy. Based on that work-up and evaluation to determine whether we feel her symptoms are truly due to location. Patient does not position this with her cholecystectomy. 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 Ariel Sainz MD via shared medical record. This note will be forwarded to Dr. Ariel Sainz MD. She is to follow-up with me as needed. Johnny Turk MD documented in this encounterTrihealth [facility]04-21-2022 Miscellaneous Notes* Telephone Encounter - Bernie Aguilar LPN - 07/05/2021 4:38 PM EDT Eloisa notified, verbalized understanding. Eloisa states that patient will be admitted into [facility] tomorrow. Just an FYI * Telephone Encounter - Ambar Negrete APRN.FE - 07/05/2021 3:35 PM EDT PCP Ariel Sainz MD Seen by Alma Ta 07/03/2021. Seen by Dr Turk today for abdominal pain / gallstones. Please let her know short term norco provided. PDMP website checked and validated. All prescriptions have been APPROPRIATELY filled. No suspiciousactivity was identified. 07/05/2021 by Ambar Negrete APRN.FE * Telephone Encounter - Aliyah Oliva LPN - 07/05/2021 1:15 PM EDT Pt's [facility] Reports pt is ill with enlarged liver & spleen, and jaundiced. Eloisa reports pt is in a great amount of pain, pt has RA & had to d/c methotrexate b/c of liver issue & prednisone is not helping. Pt has pain in legs & back, she is unable to stand by herself. Eloisa is asking if pt can get something short term for pain? Pt uses [facility] in [place]. Please call daughter Eloisa to notify her. Eloisa also asking for message to go to Dr Turk since pt was seen by him today. Aliyah Oliva LPN documented in this encounterTrihealth [facility]04-19-2022 History of Present illness Narrative* Alma Older, INSURANCE PLAN SPECIALIST.MIMEOGRAPHER - 07/03/2021 12:15 PM EDT CC: Patient presents with: Dysuria HPI Christian Landrum is a 85 year old female who presents today for above. Patient was initially scheduled for right sided abdominal pain however she was seen in the ER for this last night and CT revealed gallstones. Suspect cholecystitis as cause of symptoms and referred to general surgery, appointment with Dr. Turk this afternoon. Her main concern today is dysuria for over one month. She has been seen for this twice since 05/22 and treated with Augmentin then Macrobid. Antibiotics did not help and both times urine culture came back negative. She was also treated with pyridium which was not effective. Her only symptoms is burning with urination, unsure if it is external or internal. Denies urgency or frequency but difficult to assess since she is on Lasix. Also denies hematuria, nocturia, hesitancy, incontinence, vaginal itching or redness or abnormal discharge. REVIEW OF SYSTEMS See HPI PAST MEDICAL HISTORY Diagnosis Date Abdominal pain, left lower quadrant long standing Arrhythmia Arthritis Asthma Atrial fibrillation (HCC) 2009 Atrophic vaginitis Benign neoplasm of colon C. 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 Tachycardia 2-05/2009 History of recurrent UTIs HX OF BREAST CANCER 06/2007 breast cancer left Hypertension Irritable bowel syndrome Lumbago Mitral valve disorders(424.0) and irregular heartbeat on occasion stress related Mixed stress and urge urinary incontinence Osteoarthrosis, unspecified whether generalized or localized, other specified sites 07/22 vit D 41 Other diseases of pharynx, not elsewhere classified(478.29) Other extrapyramidal disease and abnormal movement disorder PMH - PAST MEDICAL HISTORY OF benign mass on liver PMR (polymyalgia rheumatica) (HCC) 2012 Pure hypercholesterolemia Snoring 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 Symptomatic menopausal or female climacteric states IN HER 50S 05/22 NORMAL BONE DENSITY Syncope Thyroid disease 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 Unspecified hemorrhoids without mention of complication Hemorrhoids Unspecified sleep apnea use CPAP SEVERAL YRS UTI (lower urinary tract infection) 2012 frequent PAST SURGICAL HISTORY Procedure Laterality Date ABDOMINAL SURGERY HX APPENDECTOMY 1982 ovarian cyst at same time-one ovary removed right APPENDECTOMY BIOPSY BREAST OPEN INCISIONAL left breast twice BREAST LEFT FINE NEEDLE ASPIRATION left breast BREAST SURGERY HX BX BREAST NEEDLE CORE W/O IMAGING GUIDANCE SPX 06/24/2007 left breast BX BREAST W/DEVICE 1ST LESION STEREOTACTIC GUID 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, DCIS, LCIS BX/EXC LYMPH NODE OPEN DEEP AXILLARY NODE Right COLECTOMY PART W/CECOSTOMY 08/08/2009 sigmoid colectomy COLON SURGERY HX COLONOSCOPY FLX DX W/COLLJ SPEC WHEN PFRMD 04/19/2003 Colonoscopy COLONOSCOPY FLX DX W/COLLJ SPEC WHEN PFRMD 11/03/2014 Colonoscopy COLONOSCOPY FLX DX W/COLLJ SPEC WHEN PFRMD 11/15/2019 Colonoscopy COLONOSCOPY FLX DX W/COLLJ SPEC WHEN PFRMD 01/09/2021 repeat in 6 months COLONOSCOPY W/BIOPSY SINGLE/MULTIPLE 03/23/2010 Clean anastamosis at 15cm few right and lef sided diverticula COLSC FLX W/REMOVAL LESION BY HOT BX FORCEPS 04/27/2007 tubular adenoma COLSC FLX W/REMOVAL LESION BY HOT BX FORCEPS 09/28/2008 small polyp in cecum and 40cm, diverticulosis ESOPHAGOGASTRODUODENOSCOPY TRANSORAL DIAGNOSTIC 01/09/2021 INCISE FINGER TENDON SHEATH Right 06/28/2020 Right ring and little trigger finger releases INCISE FINGER TENDON SHEATH Left 09/28/2020 Left ring trigger finger release INSJ TUNNELED CTR VAD W/SUBQ PORT AGE 5 YR/> 10/06/2007 Right Subclavian MASTECTOMY, SIMPLE, COMPLETE 08/04/2007 left breast with SLND/ALND MASTECTOMY, SIMPLE, COMPLETE Right 08/29/2015 right mastectomy with SLND PAST SURGICAL HISTORY OF bilat CTR, had endometrial bx 2004 PAST SURGICAL HISTORY OF 12/2011 removal of lesion of Lt eyelid PAST SURGICAL HISTORY OF 1982 Rt ovary removed PAST SURGICAL HISTORY OF 01/03/2017 breast surgery REMOVE TONSILS/ADENOIDS,<12 Y/O SALPINGO-OOPHORECTOMY COMPL/PRTL UNI/BI SPX 08/08/2009 left Salpingo-oophorectomy SHAVING SKIN LESION 1 S/N/H/F/G DIAM 0.6-1.0 CM 09/2017 squamous cell SKIN BIOPSY HX TONSILLECTOMY HX TONSILLECTOMY PRIMARY/SECONDARY <AGE 12 1945 Tonsillectomy ALLERGIES Clindamycin, Keflex [Cephalexin], Naprosyn [Naproxen], Desmond Inhibitors, Adhesives [Other],Arthrotec 50 [Diclofenac-Misoprostol], Blephamide [Sulfacetamide-Prednisolone], Ditropan [Oxybutynin], Flagyl [Metronidazole Hcl], Flexeril [Cyclobenzaprine], Hctz [Hydrochlorothiazide], Naproxen Sodium, Paxil [Paroxetine], Sulfa (Sulfonamide Antibiotics), and Zestril [Lisinopril] MEDICATIONS fluconazole (DIFLUCAN) 150 mg tablet Take 1 tablet by mouth once daily for 1 day. phenazopyridine (PYRIDIUM) 100 mg tablet Take 2 tablets by mouth three times daily as needed. albuterol HFA (PROVENTIL HFA, VENTOLIN HFA) 90 mcg/actuation inhaler Inhale 2 Puffs as instructed every 6 hours as needed for wheezing/shortness of breath. MEDICAL SUPPLY Zippered compression stockings.- 1 pair. levothyroxine (LEVOXYL) 25 mcg tablet Take 1 tablet by mouth once daily. Take on empty stomach. ForThyroid metoprolol tartrate, short acting, (LOPRESSOR) 50 mg tablet TAKE ONE TABLET EVERY MORNING AND HALF TABLET EVERY EVENING omeprazole (PRILOSEC) 20 mg capsule Take 2 capsules by mouth once daily. escitalopram oxalate (LEXAPRO) 10 mg tablet Take 1 tablet by mouth once daily. furosemide (LASIX) 20 mg tablet Take 1 tablet by mouth once daily. gabapentin (NEURONTIN) 600 mg tablet Take 0.5 tablets by mouth once daily. warfarin (COUMADIN) 1 mg tablet 2 mg every Tue; 1 mg all other days predniSONE (DELTASONE) 5 mg tablet Take 1 tablet by mouth once daily. Cranberry 400 mg cap Take 2 capsules by mouth once daily. Zinc 50 mg tab Take by mouth once daily. ascorbic acid, vitamin C, (VITAMIN C) 500 mg tablet Take 500 mg by mouth once daily. cholecalciferol (VITAMIN D-3) 50 mcg (2,000 unit) tablet Take 2,000 Units by mouth once daily. Taking 1000 glucosamine/msm/chondroitin A (NZRUIMQHJHI-NOCNDY-OPU ORAL) Take 1 capsule by mouth once daily. 0.9 % sodium chloride (0.9% NACL) Access implanted vascular access device (IVAD) as needed for flush, blood draw or treatment.Flush IVAD with 10-20 mL NS every 4 weeks and PRN when IVAD not in use. heparin 100 unit/mL injection Access implanted vascular access device (IVAD) as needed for flush, blood draw or treatment. Before de-accessing port, flush with 10-20ml normal saline and follow with 5mL heparin (100 units/mL) (if no heparin allergy). De-access port on treatment completion. TURMERIC ROOT EXTRACT ORAL Take 580 mg by mouth once daily. biotin 5,000 mcg subl diclofenac sodium (VOLTAREN) 1 % topical gel Apply 4 g to affected area as needed. triamcinolone acetonide (NASACORT AQ) 55 mcg nasal inhaler Use 2 Sprays in the nose once daily. Melatonin 5 mg tab Take 10 mg by mouth daily at bedtime. docusate sodium (COLACE) 100 mg capsule Take 1 capsule by mouth twice daily as needed for Constipation. calcium citrate-vitamin D3 (CITRACAL+D) 315-200 mg-unit tab Take 1 tablet by mouth once daily. METHYLCELLULOSE (CITRUCEL ORAL) Take 2 tablets by mouth once daily. cetirizine (ZYRTEC) 10 mg tablet Take 1 tablet by mouth once daily. MULTIVITAMIN TAB Take one(1) tablet daily BY MOUTH. TYLENOL EX-STR 500 MG CAPLET Take two(2) tablets every four(4) to six(6) hours as needed. FAMILY HISTORY Problem Relation Age of Onset other ( age 59 MA) Mother hypertension and TB other (pancreatic cancer) Father Breast Cancer Sister diagnosed at age 53 Breast Cancer Maternal Aunt diagnosed postmenopausal Breast Cancer Other 2 maternal first cousins Breast Cancer Other maternal cousins Breast Cancer Other maternal great grandmother other (sinus cavity CA) Son other (myeloma) Brother other (healthy) Sister other (ovarian cancer) Sister paternal grandmother Social History Tobacco Use Smoking status: Never Smoker Smokeless tobacco: Never Used Vaping Use Vaping Use: Never used Substance Use Topics Alcohol use: No Drug use: No PHYSICAL EXAM BP 118/64 Pulse 67 Temp 36.9 C (98.4 F) (Temporal) Resp 12 Wt 78.9 kg (174 lb) SpO2 97% BMI 28.08 kg/m General Appearance: well appearing, in no acute distress, alert Lungs: Lungs clear to auscultation. No wheezing, rhonchi, rales. Heart: RRR without murmur, gallop, or rubs. No ectopy Abd: No CVA or lower abdominal tenderness DATA REVIEWED: Outside chart from [facility] ER reviewed. ASSESSMENT/PLAN: 1. Dysuria - ICD9: 788.1, ICD10: R30.0 (primary diagnosis) Chronic. Urine cultures negative for UTI and no improvement with antibiotics. Differentials includeyeast infection, atrophic vaginitis, interstitial cystitis Start Diflucan for possible yeast infection Follow-up with VOCATIONAL PSYCHOLOGIST as scheduled next week and discuss further 2. Right upper quadrant abdominal pain - ICD9: 789.01, ICD10: R10.11 Follow-up with Dr. Turk as scheduled today 3. Chronic anticoagulation - ICD9: V58.61, ICD10: Z79.01 INR in ER was 3.6, advised to hold Coumadin. Coumadin managed by pharmacy. Patient was instructed to call pharmacy today and notify them of INR results Prescription instructions reviewed with patient as applicable. Potential red flag symptoms discussed with the patient. Reviewed appropriate action plan to take if red flag symptoms occur. Patient agreeable to treatment plan. Alma Ta APRN.CNP documented in this encounterTrihealth [facility]04-19-2022 Miscellaneous Notes* Telephone Encounter - Madonna Dickson LPN - 07/03/2021 11:[address] [facility] medical records to fax ER visit from 07/02/21 . * Telephone Encounter - Madonna Dickson LPN - 07/03/2021 8:59 AM EDT Patient called wants to talk to Dr Turk, was in [facility] ER last night 07/02/21, [place] wanted to do surgery on gallbladder, patient declined, states wants to f/up with Dr Turk before proceeding. Please advise. [phone] documented in this encounterTrihealth [facility]04-08-2022 Miscellaneous Notes* Telephone Encounter - Corinna Arenas [facility] - 06/22/2021 10:16 AM EDT [facility] Clinic Anticoagulation Episode Summary Anticoagulation Care Providers Provider Role Specialty Phone number Ariel Sainz MD [facility] Internal Medicine [phone] Christian Landrum is a 85 year old year old female patient being evaluated today for a Telemanagement visit. Patient is currently on the following anticoagulant(s) Warfarin. Labs PT INR (no units) Date Value 06/06/2021 3.1 (biotel) 05/23/2021 2.5 (biotel) 03/15/2021 1.9 INR Home CoaguChek (no units) Date Value 06/22/2021 2.1 05/09/2021 2.3 04/26/2021 2.2 Hemoglobin (g/dL) Date Value 05/22/2021 10.3 04/11/2021 11.8 Hematocrit (%) Date Value 05/22/2021 32.3 04/11/2021 36.5 Platelet Count (k/uL) Date Value 05/22/2021 134 04/11/2021 142 Creatinine (mg/dL) Date Value 05/22/2021 0.75 03/27/2021 0.61 02/27/2021 0.69 02/09/2021 0.69 Bilirubin, Total (mg/dL) Date Value 05/22/2021 0.8 03/27/2021 0.5 ALT (U/L) Date Value 05/22/2021 18 03/27/2021 18 AST (U/L) Date Value 05/22/2021 35 03/27/2021 36 Estimated Creatinine Clearance: 59.7 mL/min (based on SCr of 0.75 mg/dL). ALLERGIES Allergen Reactions Clindamycin Other: See Comments, Contraindication-Medical Surgical Should not be prescribed due to past history of c diff Keflex [Cephalexin] Other: See Comments, Contraindication-Medical Surgical Patient states this caused C diff Naprosyn [Naproxen] Other: See Comments bleeding Desmond Inhibitors Cough Adhesives [Other] Other: See Comments Local skin reaction with skin tears Arthrotec 50 [Diclo* Diarrhea Blephamide [Sulface* Cough Ditropan [Oxybutyni* Other: See Comments Severe dryness of nasal passages, bleeding from the nose, constipation and sneezing Flagyl [Metronidazo* Mental Status Change, Shortness of Breath Anxiety Flexeril [Cyclobenz* Contraindication-Medical Surgical urinary urgency Hctz [Hydrochloroth* Mental Status Change felt strange Naproxen Sodium Contraindication-Medical Surgical GI Bleeding Paxil [Paroxetine] Contraindication-Medical Surgical urinary urgency Sulfa (Sulfonamide * Unknown Zestril [Lisinopril] Indication for Warfarin: 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 documented in this encounterTrihealth [facility]04-06-2022 Miscellaneous Notes* Telephone Encounter - Jerrica Rothman RPh - 06/20/2021 4:55 PM EDT Patient was due to test INR today will continue to monitor for results. Jerrica Tarcy, PharmD documented in this encounterTrihealth [facility]04-05-2022 Miscellaneous Notes* Telephone Encounter - Page Palmer - 06/19/2021 8:28 AM EDT Patient given results and verbalized understanding of instructions given. Page Palmer * Telephone Encounter - Basilia Cueto APRN.CNP - 06/19/2021 6:54 AM EDT Please inform patient that urine culture did not show any growth of bacteria requiring treatment. She may stop macrobid. Recommend patient follow up with Dr. Arzola as discussed at visit. Basilia Cueto APRN.CNP documented in this encounterTrihealth Bethes[facility]03-22-2022 History of Present illness Narrative* Aby Bruner DO - 06/05/2021 11:00 AM EDT This office note has been dictated. Aby Bruner DO documented in this encounterTrihealth Bethes[facility]03-03-2022 History of Present illness Narrative* RT Sahra(R) - 05/17/2021 5:46 PM EST Radiology Service Progress Note PATIENT NAME: Christian Landrum DATE OF SERVICE: May 17, 2021 TIME: 5:46 PM PATIENT IDENTITY VERIFICATION COMPLETED USING TWO (2) IDENTIFIERS: Name and Date of confirmedby patient verbally. FALL SCREENING: Has the patient had 2 falls in the last year or 1 fall with injury or currently using an Ambulatory Assistive Device (Walker, Cane, Wheelchair, Crutches, etc.)? Yes, Patient High Riskfor Falls What interventions were put in place to prevent falls during this visit? Instructed Patient to Callfor Help if Needed, Offered Assistance with Transfers/Clothing and Increased Observations by Caregivers PATIENT GENDER DATA: Female. status: : No status: NO. PATIENT RELEVANT IMPLANT DATA REVIEWED: Yes RADIOLOGY DEPARTMENT: General X-ray: Exam(s) Completed: Chest X-Ray PERIPHERAL IV DATA: Not applicable SIGNED BY: RT Sahra(R) May 17, 2021 5:46 PM documented in this encounterTrihealth Bethes[facility]11-30-2021 Miscellaneous Notes* Telephone Encounter - Galina Solorzano LPN - 02/13/2021 10:48 AM EST Patient Health POA/ daughter notified of results, verbalizes understanding of instructions. Galina Solorzano LPN * Telephone Encounter - Ariel Sainz MD - 02/12/2021 5:32 PM EST Probiotics otc will help reduce the risk of c diff. * Telephone Encounter - Bernie Paulino Ma - 02/12/2021 2:07 PM EST Patient notified. Continues to have on and off bleeding vaginally from her recent biopsy; she is going to contact Dr. Arzola to update. Started coumadin and Vagina cream last night again. Patient states that her urologist had told her years ago that PPI use with antibiotics can cause C.Diff. She was previously taking Keflex and a PPI (unsure which one), which lead to c. Diff infection in the past. She is out of omeprazole and will pick it up but questioning if there is anything else to avoid C. Diff in future * Telephone Encounter - Ariel Sainz MD - 02/09/2021 5:58 PM EST I refilled the medication * Telephone Encounter - Violet Rockwell RN - 02/07/2021 9:18 AM EST Patient reports Dr. Turk prescribed omeprazole for her after an upper/lower GI showed she had a bleeding stomach which resulted in anemic. Reports she has 5 days left of pills. Asking Dr. Sainz if she is suppose to keep taking them? Are you able to send ref[facility]? Please advise patient. documented in this encounterTrihealth Bethesda [facility] Hospital10-31-2021 NoteHNO ID: [id number] Author: Johnny Turk MD Service: General Surgery Author Type: Physician Type: Progress Notes Filed: 01/14/2021 12:08 PM Note Text: INPATIENT PROGRESS NOTE SERVICE DATE: 01/14/2021 SERVICE TIME: 12:07 PM PRIMARY SERVICE: Medicine Subjective CHIEF COMPLAINT: Likely post polypectomy bleed, questionable UTI INTERVAL HPI: No further bowel movements. Hemoglobin decreased slightly. CT scan demonstrated questionable early cirrhosis changes and a thickened endometrium. Pelvic ultrasound also demonstrated thickened endometrium. Current Facility-Administered Medications Medication Dose Route Frequency - influenza vaccine qs 240 mcg (Patients 65 years and older) (PF) 0.7 mL injection (FLUZONE HIGH DOSE ) 0.7 mL INTRAMUSCULAR ONCE (IMMUNIZATION) - gabapentin 300 mg tab(s) (NEURONTIN) 300 mg ORAL DAILY - cetirizine 10 mg tab(s) (ZyrTEC) 10 mg ORAL DAILY - atorvastatin 10 mg tab(s) (LIPITOR) 10 mg ORAL DAILY - [START ON 01/16/2021] methotrexate 10 mg tab(s) 10 mg ORAL 1/WK - metoprolol tartrate (short acting) 50 mg tab(s) (LOPRESSOR) 50 mg ORAL DAILY - metoprolol tartrate (short acting) 25 mg tab(s) (LOPRESSOR) 25 mg ORAL AT BEDTIME - folic acid 3 mg tab(s) 3 mg ORAL DAILY - melatonin tab(s) 10 mg 10 mg ORAL AT BEDTIME - pantoprazole DR 40 mg tab(s) (PROTONIX) 40 mg ORAL DAILY - escitalopram oxalate 10 mg tab(s) (LEXAPRO) 10 mg ORAL DAILY - levothyroxine 25 mcg tab(s) (SYNTHROID) 25 mcg ORAL DAILY - NaCl 0.9% iv flush bag 20 mL INTRAVENOUS PRN - sodium chloride 0.9 % (flush) 3-5 mL (BD POSIFLUSH) 3-5 mL INTRAVENOUS q 12 H - ondansetron orally disintegrating 4 mg tab(s) (ZOFRAN ODT) 4 mg ORAL q 6 H PRN Or - ondansetron (PF) 4 mg injection (ZOFRAN) 4 mg INTRAVENOUS q 6 H PRN - aluminum-magnesium hydroxide-simethicone 200-200-20 mg/5 mL 30 mL (MAALOX,MYLANTA,MAG-AL PLUS) 30 mL ORAL q 6 H PRN - acetaminophen 650 mg tab(s) (TYLENOL) 650 mg ORAL q 6 H PRN - nitrofurantoin monohydrate and macrocrystal 100 mg cap(s) (MACROBID) 100 mg ORAL BID w MEALS Objective PHYSICAL EXAM: BP 105/52 Pulse 69 Temp (Src) 98.2 (Oral) Resp 16 Ht 5' 6 (1.68m) Wt 179 lb 7.3 oz (81.4kg) SpO2 97% BMI 28.98 kg/(m2). O2 Therapy: Room Air Physical Exam Performed GENERAL: Alert, no distress, cooperative LUNGS: Lungs clear to auscultation, Good diaphragmatic excursion CARDIAC: Normal S1 and S2; no rubs, murmurs, or gallops ABDOMEN: Abdomen soft, non-tender, BS normal, No masses or organomegaly DATA: Diagnostic tests reviewed for today's visit: Most recent labs and imaging results. Assessment/Plan Principal Problem: GI bleed POA: Yes Assessment AND Plan: Post polypectomy bleed. Clinically no further bleeding. Seems to be stable at this point in time agree with holding oral anticoagulation. Patient receiving iron infusion. Would plan to have patient follow-up in my office in 1 week. Resolved Problems: * No resolved hospital problems. * Medication and Non-Pharmacologic VTE Prophylaxis/Anticoagulants 01/12/211999 activity - mobilize patient (la,nd) VTE Prophylaxis: VTE prophylaxis appropriate SIGNATURE: Johnny Turk MD PATIENT NAME: Christian Landrum DATE: January 14, 2021 TIME: 12:07 [id number] NoteHNO ID: [id number] Author: Wendy Bonilla DO Service: Hospital Medicine Author Type: Physician Type: Progress Notes Filed: 01/13/2021 4:03 PM Note Text: DEPARTMENT OF HOSPITAL MEDICINE PROGRESS NOTE SERVICE DATE: 01/13/2021 SERVICE TIME: 3:50 PM Hospital Medicine/Primary Attending: Wendy Bonilla DO NIGHT AND WEEKEND COVERAGE: [place] COVERAGE: Days: [phone], please page attending physician. Nights: [phone], please page [place] [facility] Night coverage pager [phone]. Subjective INTERVAL HPI: feels well today. No stools since she came in yesterday. No abdominal pain nausea or vomiting. No fever or chills. She does report dysuria for several days and feels she has a UTI She has had c diff in the past and states she tolerates macrobid well. We discussed the findings on her CT scan including the cirrhosis and the thickened endometrium Current Facility-Administered Medications Medication Dose Route Frequency - influenza vaccine qs 240 mcg (Patients 65 years and older) (PF) 0.7 mL injection (FLUZONE HIGH DOSE ) 0.7 mL INTRAMUSCULAR ONCE (IMMUNIZATION) - gabapentin 300 mg tab(s) (NEURONTIN) 300 mg ORAL DAILY - cetirizine 10 mg tab(s) (ZyrTEC) 10 mg ORAL DAILY - atorvastatin 10 mg tab(s) (LIPITOR) 10 mg ORAL DAILY - [START ON 01/16/2021] methotrexate 10 mg tab(s) 10 mg ORAL 1/WK - metoprolol tartrate (short acting) 50 mg tab(s) (LOPRESSOR) 50 mg ORAL DAILY - metoprolol tartrate (short acting) 25 mg tab(s) (LOPRESSOR) 25 mg ORAL AT BEDTIME - folic acid 3 mg tab(s) 3 mg ORAL DAILY - melatonin tab(s) 10 mg 10 mg ORAL AT BEDTIME - pantoprazole DR 40 mg tab(s) (PROTONIX) 40 mg ORAL DAILY - escitalopram oxalate 10 mg tab(s) (LEXAPRO) 10 mg ORAL DAILY - levothyroxine 25 mcg tab(s) (SYNTHROID) 25 mcg ORAL DAILY - NaCl 0.9% iv flush bag 20 mL INTRAVENOUS PRN - sodium chloride 0.9 % (flush) 3-5 mL (BD POSIFLUSH) 3-5 mL INTRAVENOUS q 12 H - ondansetron orally disintegrating 4 mg tab(s) (ZOFRAN ODT) 4 mg ORAL q 6 H PRN Or - ondansetron (PF) 4 mg injection (ZOFRAN) 4 mg INTRAVENOUS q 6 H PRN - aluminum-magnesium hydroxide-simethicone 200-200-20 mg/5 mL 30 mL (MAALOX,MYLANTA,MAG-AL PLUS) 30 mL ORAL q 6 H PRN - acetaminophen 650 mg tab(s) (TYLENOL) 650 mg ORAL q 6 H PRN - nitrofurantoin monohydrate and macrocrystal 100 mg cap(s) (MACROBID) 100 mg ORAL BID w MEALS Objective PHYSICAL EXAM: BP 105/45 Pulse 66 Temp (Src) 98.4 (Oral) Resp 16 Ht 5' 6 (1.68m) Wt 179 lb 7.3 oz (81.4kg) SpO2 95% BMI 28.98 kg/(m2). O2 Therapy: Room Air Physical Exam Performed GENERAL: Alert, no distress, cooperative LUNGS: Lungs clear to auscultation, Good diaphragmatic excursion CARDIAC: Normal S1 and S2; no rubs, murmurs, or gallops ABDOMEN: Abdomen soft, non-tender, BS normal, EXTREMITIES: Extremities normal, no deformities, edema, clubbing or skin discoloration. Lines, Drains, and Airways Line Implanted Vascular Access Device Single Port Right Chest -- days DATA: Diagnostic tests reviewed for today's visit: Most recent labs Most recent imaging Assessment/Plan Problem List GI bleed POA: Yes Acute blood loss anemia POA: . Atrial fibrillation, chronic (HCC) POA: Yes Essential hypertension, benign POA: Yes Polymyalgia rheumatica (HCC) POA: Yes UTI (urinary tract infection) POA: . Obesity, Class I, BMI 30-34.9 POA: . Liver cirrhosis (HCC) POA: . Endometrial thickening on ultrasound POA: . HOSPITAL COURSE: Christian Landrum is a 85 year old female presented with past medical history of afib on coumadin, CAD, diverticulitis, cdiff, breast Ca, PMR and RA presents with rectal bleeding after having colonoscopy and polypectomy Principal Problem: GI bleed Post polypectomy with 6 polyps removed Bleeding seems to have stopped Seen by general surgery and pathology reviewed with patient. Outpatient referral as per Dr. Turk Hold coumadin probably for one week Monitor Hg Active Problems: Acute blood loss anemia from post polypectomy bleeding Hg 11.4-->8.4 Monitor Hg Start iron supplement Atrial fibrillation, chronic (HCC) Controlled on metoprolol Hold coumadin as above Essential hypertension, benign On metoprolol Polymyalgia rheumatica (HCC) RA On methotrexate. Patient advised to discuss alternate therapies vs safety of continuing given findings of cirrhosis on her CT scan UTI (urinary tract infection) Symptomatic with cystitis seen on CT scan Start macrobid (patient request as she has hx of cdiff and has tolerated this) Follow urine culture Liver cirrhosis (HCC) Noted on CT scan. She had fatty liver in the past. Also on group home methotrexate. Noted positive Hepatitis B core ab I ordered the rest of the hepatitis serologies her Rn Faculty recommended and she will need to f/u with GI outpatient Endometrial thickening on ultrasound Obtain transvaginal US If thickened endometrium then she needs to see (more content not included)... [facility] [id number] NoteHNO ID: [id number] Author: Kamila Rodrigues, CT Service: Radiology Author Type: Clinical [employer] Type: Progress Notes Filed: 01/12/2021 4:19 PM Note Text: Radiology Service Progress Note DATE OF SERVICE: January 12, 2021 TIME: 4:06 PM PATIENT IDENTITY VERIFICATION COMPLETED USING TWO (2) STANDARD IDENTIFIERS: Name and Date of confirmed by patient verbally and Name and Date of confirmed by identification band. FALL SCREENING: Has the patient had 2 falls in the last year or 1 fall with injury or currently using an Ambulatory Assistive Device (Walker, Cane, Wheelchair, Crutches, etc.)? Emergency Room Patient: Screened in ED PATIENT GENDER DATA: Female. status: : No status: NO. PATIENT RELEVANT IMPLANT DATA REVIEWED: Yes ALLERGIES: Reviewed and unchanged CONTRAST ALLERGY: NO. EXAM: CT -CONTRAST INDUCED NEPHROPATHY RISK FACTORS: Patient age > 60 years CREATININE: Creatinine Date Value Ref Range Status 01/12/2021 0.67 0.58 - 0.96 mg/dL Final 01/03/2021 0.70 0.58 - 0.96 mg/dL Final 12/06/2020 0.65 0.58 - 0.96 mg/dL Final eGFR-All Other Races Date Value Ref Range Status 01/12/2021 >60 . Final Comment: eGFR (Estimated GFR) Units of measure: mL/min/1.73 meters squared eGFR is derived from the reexpressed MDRD Study equation using the following parameters: serum creatinine, age, gender and race. The creatinine assay has been calibrated to be traceable to IDMS. An eGFR <60 mL/min/1.73m2 for >3 months is consistent with chronic kidney disease. Refer to KDOQI guidelines for clinical interpretation. In patients with unstable renal function, e.g. those with acute kidney injury, the eGFR may not accurately reflect actual GFR. eGFR- Date Value Ref Range Status 01/12/2021 >60 Final P.O.C.T. RESULTS: POC done: Yes, See Lab Tab January 12, 2021 TREATMENT: N/A PERIPHERAL IV DATA: Inpatient - refer to LDA documentation RADIOLOGY DEPARTMENT: CT; Exam(s) Completed: Abdomen/Pelvis SIGNATURE: CLIFFORD Ramires PATIENT NAME: Christian Landrum DATE: January 12, 2021 TIME: 4:06 [id number] History of Past illness Narrative* Problem Noted Date Resolved Date Obesity, Class I, BMI 30-34.9 01/12/2021 GI bleed 01/12/2021 01/14/2021 Acute blood loss anemia 01/12/2021 01/15/20 LLQ pain 09/05/2017 04/09/2021 Overview: Added automatically from request for surgery [id number] Personal history of breast cancer 12/18/2016 04/09/2021 Overview: Added automatically from request for surgery [id number] Permanent atrial fibrillation 12/26/2015 Diverticulitis of large inte angélica without perforation or abscess without bleeding 11/17/2015 04/09/2021 Lymphedema of arm 10/16/2015 04/09/2021 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 female breast 08/04/2015 04/09/2021 UTI (urinary tract infection) 07/27/2015 Overview: Estrogen is contraindicated for her breast cancer but she is not able to keep the UTI off. Tried to abx daily but developed a c diff. This plan is agreed upon by her onco and her urologist Last Assessment & Plan: Estrogen is contraindicated for her breast cancer but she is not able to keep the UTI off. Tried to abx daily but developed a c diff. This plan is agreed upon by her onco and her urologist Malignant neoplasm of right female breast 201504/09/2021 Overview: The patient had tamoxifen for 5 years and then a gap and resumed after getting cancer for the second time. Last Assessment & Plan: The patient had tamoxifen for 5 years and then a gap and resumed after getting cancer for the second time. Abnormal mammogram of right breast 07/17/2015 04/09/2021 Pain of both shoulder joints 02/21/2015 Other and unspecified noninf ectious gastroenteritis and colitis(558.9) 11/03/2014 11/03/2014 Other specified rheumatoid arthritis, multiple s ites 05/06/2014 07/01/2018 Overview: Dx: 2014 She is on methotrexate and plaquenil Last Assessment & Plan: Dx: 2014 She is on methotrexate and plaquenil Acne rosacea 11/07/2013 04/15/2014 Folliculitis 11/07/2013 04/15/2014 Inflamed seborrheic keratosis 11/07/2013 Xerosis cutis 11/07/2013 04/15/2014 Solar lentigo 11/07/2013 04/15/2014 Crowley angioma 11/07/2013 04/15/2014 Pruritus 11/07/2013 04/15/2014 Backache, unspecified 07/09/2013 04/15/2014 Cutaneous skin tags 12/12/2012 04/14/2013 Intradermal nevus 12/12/2012 04/14/2013 Melanocytic nevi of trunk 12/12/20122013 Dermatofibroma of lower leg 12/12/201203/18 Urinary tract infection 09/02/2012 04/15/19 15 Abdominal pain 09/02/2012 04/15/2014 C. difficile colitis 09/02/2012 04/15/2014 Diverticulitis of colon (wit hout mention of hemorrhage)(562.11) 06/15/2012 04/15/2014 Other Seborrheic Keratoses 05/29/201204/15 Actinic skin damage 05/29/2012 04/15/2014 Epidermal cyst: L upper side nose 06/01/2011 04/15/2014 Xerosis cutis 06/01/2011 04/14/2013 Eczema intertrigo 04/25/2011 04/15/2014 Eczematous dermatitis 04/25/2011 04/14/2013 Intertrigo: Irritant fold area dermatitis 201104/14/2013 Urgency of urination 02/13/2011 04/15/2014 Female stress incontinence 02/13/201104/15 Urge incontinence 02/13/2011 04/15/2014 Recurrent UTI 01/28/2011 04/15/2014 Pain in joint, pelvic region and thigh 10/09/ 0 04/15/2014 Family history of malignant neoplasm of ovary 04/14/2013 Solar Lentigines 05/18/2009 04/14/2013 Crowley Angioma//Capillary Angioma 05/18/2009 04/14/2013 Melanocytic nevus of face 05/18/20092013 Melanocytic nevus of trunk 05/18/200904/14 SVT (supraventricular tachycardia) 03/31/2009 04/09/2021 Last Assessment & Plan: She is on coumadin, metoprolol. SEBORRHEIC KERATOSIS: IRRITATED//INFLAMED 200712/12/2012 Viral warts, unspecified 02/08/2008 013 Benign neoplasm of skin of o ther and unspecified parts of face 02/08/2008 12/12/2012 SEBACEOUS HYPERPLASIA//SEBACEOUS GLAND DIS NOS 1 04/09/2007 12/12/2012 Sebaceous cyst 02/08/2008 12/12/2012 Symptomatic menopausal or female climacteric sta tracy 02/04/2008 04/14/2013 Personal history of malignant neoplasm of breast 02/04/2008 04/15/2014 Other specified disorder of bladder 02/04/2008 02/13/2011 Nocturia 02/04/2008 04/15/2014 Episode Elevated Glucose after Steriod 8 04/15/2014 Diarrhea 10/14/2007 04/14/2013 Abdominal pain, left lower quadrant 10/08/2007 04/14/2013 MALIGN NEOPL BREAST NOS 08/18/2007 04/15/19 15 Postmenopausal atrophic vaginitis 07/28/2007 04/15/2014 HX BREAST CANCER 07/01/2007 04/09/2021 Overview: summer, and 2007. On tamoxifen Last Assessment & Plan: summer, and 2007. On tamoxifen Lump or mass in breast 06/24/2007 4 HX OF TUBULAR ADENOMA 04/27/2007 04/09/2021 NEURALGIA///NERV ROOT/PLEXUS DIS NEC 03/25/2007 04/15/2014 XEROSIS///SEBACEOUS GLAND DIS NEC 03/25/2007 02/17/2012 Seborrheic dermatitis, unspecified 03/25/2007 02/17/2012 Palpitations 01/21/2006 02/17/2012 DEGENERATED DISK DISEASE LUMBOSACRAL-NO MYELOPAT HY 01/21/2006 02/17/2012 ELEVATED SGPT 01/21/2006 02/17/2012 SEBORRHEIC KERATOSES 11/25/2005 02/17/2012 ACTINIC DAMAGE//CHR SOLAR SKIN DAMAGE NOS 200502/17/2012 SURGICAL SCAR & FIBROSIS OF SKIN 11/25/2005 02/17/2012 DERMATOFIBROMAS///BENIGN DARINEL SKIN LEG 11/25/2005 02/17/2012 INTRADERMAL NEVI (MELANOCYTIC)/// DARINEL SKIN TRUNK 11/25/2005 02/17/2012 SKIN TAG PAPILLOMAS///SKIN HYPERTRO/ATROPH NOS 0 11/25/2005 02/17/2012 Abdominal pain, unspecified site 10/25/2005 02/17/2012 Sprain of neck 07/05/2005 02/17/2012 FATTY INFILTRATION LIVER 05/14/2005 022 Other diseases of pharynx, not elsewhere classif ied(478.29) 04/14/2013 Unspecified hemorrhoids without mention of compl ication 04/14/2013 Overview: Hemorrhoids Lumbago 04/15/2014 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 Merino on recommendation of Dr. Angeline nath Last Assessment & Plan: She is on asacol for the past few months, it was started by Dr. Merino on recommendation of Dr. Angeline nath documented as of this encounter (statuses as of 06/05/2021) [facility]10-[facility] History of Past illness Narrative* Problem Noted Date Resolved Date Obesity, Class I, BMI 30-34.9 01/12/2021 GI bleed 01/12/2021 01/14/2021 Acute blood loss anemia 01/12/2021 01/15/20 21 LLQ pain 09/05/2017 04/09/2021 Overview: Added automatically from request for surgery [id number] Personal history of breast cancer 12/18/2016 04/09/2021 Overview: Added automatically from request for surgery [id number] Permanent atrial fibrillation 12/26/2015 Diverticulitis of large inte angélica without perforation or abscess without bleeding 11/17/2015 04/09/2021 Lymphedema of arm 10/16/2015 04/09/2021 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 female breast 08/04/2015 04/09/2021 UTI (urinary tract infection) 07/27/2015 Overview: Estrogen is contraindicated for her breast cancer but she is not able to keep the UTI off. Tried to abx daily but developed a c diff. This plan is agreed upon by her onco and her urologist Last Assessment & Plan: Estrogen is contraindicated for her breast cancer but she is not able to keep the UTI off. Tried to abx daily but developed a c diff. This plan is agreed upon by her onco and her urologist Malignant neoplasm of right female breast 201504/09/2021 Overview: The patient had tamoxifen for 5 years and then a gap and resumed after getting cancer for the second time. Last Assessment & Plan: The patient had tamoxifen for 5 years and then a gap and resumed after getting cancer for the second time. Abnormal mammogram of right breast 07/17/2015 04/09/2021 Pain of both shoulder joints 02/21/2015 Other and unspecified noninf ectious gastroenteritis and colitis(558.9) 11/03/2014 11/03/2014 Other specified rheumatoid arthritis, multiple s ites 05/06/2014 07/01/2018 Overview: Dx: 2014 She is on methotrexate and plaquenil Last Assessment & Plan: Dx: 2014 She is on methotrexate and plaquenil Acne rosacea 11/07/2013 04/15/2014 Folliculitis 11/07/2013 04/15/2014 Inflamed seborrheic keratosis 11/07/2013 Xerosis cutis 11/07/2013 04/15/2014 Solar lentigo 11/07/2013 04/15/2014 Crowley angioma 11/07/2013 04/15/2014 Pruritus 11/07/2013 04/15/2014 Backache, unspecified 07/09/2013 04/15/2014 Cutaneous skin tags 12/12/2012 04/14/2013 Intradermal nevus 12/12/2012 04/14/2013 Melanocytic nevi of trunk 12/12/20122013 Dermatofibroma of lower leg 12/12/201203/18 Urinary tract infection 09/02/2012 04/15/19 15 Abdominal pain 09/02/2012 04/15/2014 C. difficile colitis 09/02/2012 04/15/2014 Diverticulitis of colon (wit hout mention of hemorrhage)(562.11) 06/15/2012 04/15/2014 Other Seborrheic Keratoses 05/29/201204/15 Actinic skin damage 05/29/2012 04/15/2014 Epidermal cyst: L upper side nose 06/01/2011 04/15/2014 Xerosis cutis 06/01/2011 04/14/2013 Eczema intertrigo 04/25/2011 04/15/2014 Eczematous dermatitis 04/25/2011 04/14/2013 Intertrigo: Irritant fold area dermatitis 201104/14/2013 Urgency of urination 02/13/2011 04/15/2014 Female stress incontinence 02/13/201104/15 Urge incontinence 02/13/2011 04/15/2014 Recurrent UTI 01/28/2011 04/15/2014 Pain in joint, pelvic region and thigh 0 04/15/2014 Family history of malignant neoplasm of ovary 04/14/2013 Solar Lentigines 05/18/2009 04/14/2013 Crowley Angioma//Capillary Angioma 05/18/2009 04/14/2013 Melanocytic nevus of face 05/18/20092013 Melanocytic nevus of trunk 05/18/200904/14 SVT (supraventricular tachycardia) 03/31/2009 04/09/2021 Last Assessment & Plan: She is on coumadin, metoprolol. SEBORRHEIC KERATOSIS: IRRITATED//INFLAMED 200712/12/2012 Viral warts, unspecified 02/08/2008 013 Benign neoplasm of skin of o ther and unspecified parts of face 02/08/2008 12/12/2012 SEBACEOUS HYPERPLASIA//SEBACEOUS GLAND DIS NOS 1 04/09/2007 12/12/2012 Sebaceous cyst 02/08/2008 12/12/2012 Symptomatic menopausal or female climacteric sta tracy 02/04/2008 04/14/2013 Personal history of malignant neoplasm of breast 02/04/2008 04/15/2014 Other specified disorder of bladder 02/04/2008 02/13/2011 Nocturia 02/04/2008 04/15/2014 Episode Elevated Glucose after Steriod 8 04/15/2014 Diarrhea 10/14/2007 04/14/2013 Abdominal pain, left lower quadrant 10/08/2007 04/14/2013 MALIGN NEOPL BREAST NOS 08/18/2007 04/15/19 15 Postmenopausal atrophic vaginitis 07/28/2007 04/15/2014 HX BREAST CANCER 07/01/2007 04/09/2021 Overview: summer, and 2007. On tamoxifen Last Assessment & Plan: Summer of 2015, and 2007. On tamoxifen Lump or mass in breast 06/24/2007 4 HX OF TUBULAR ADENOMA 04/27/2007 04/09/2021 NEURALGIA///NERV ROOT/PLEXUS DIS NEC 03/25/2007 04/15/2014 XEROSIS///SEBACEOUS GLAND DIS NEC 03/25/2007 02/17/2012 Seborrheic dermatitis, unspecified 03/25/2007 02/17/2012 Palpitations 01/21/2006 02/17/2012 DEGENERATED DISK DISEASE LUMBOSACRAL-NO MYELOPAT HY 01/21/2006 02/17/2012 ELEVATED SGPT 01/21/2006 02/17/2012 SEBORRHEIC KERATOSES 11/25/2005 02/17/2012 ACTINIC DAMAGE//CHR SOLAR SKIN DAMAGE NOS 200502/17/2012 SURGICAL SCAR & FIBROSIS OF SKIN 11/25/2005 02/17/2012 DERMATOFIBROMAS///BENIGN DARINEL SKIN LEG 11/25/2005 02/17/2012 INTRADERMAL NEVI (MELANOCYTIC)/// DARINEL SKIN TRUNK 11/25/2005 02/17/2012 SKIN TAG PAPILLOMAS///SKIN HYPERTRO/ATROPH NOS 0 11/25/2005 02/17/2012 Abdominal pain, unspecified site 10/25/2005 02/17/2012 Sprain of neck 07/05/2005 02/17/2012 FATTY INFILTRATION LIVER 05/14/2005 022 Other diseases of pharynx, not elsewhere classif ied(478.29) 04/14/2013 Unspecified hemorrhoids without mention of compl ication 04/14/2013 Overview: Hemorrhoids Lumbago 04/15/2014 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 Merino on recommendation of Dr. Angeline nath Last Assessment & Plan: She is on asacol for the past few months, it was started by Dr. Merino on recommendation of Dr. Angeline nath documented as of this encounter (statuses as of 06/19/2021) [facility]10[facility] History of Past illness Narrative* Problem Noted Date Resolved Date Obesity, Class I, BMI 30-34.9 01/12/2021 GI bleed 01/12/2021 01/14/2021 Acute blood loss anemia 01/12/2021 01/15/20 21 LLQ pain 09/05/2017 04/09/2021 Overview: Added automatically from request for surgery [id number] Personal history of breast cancer 12/18/2016 04/09/2021 Overview: Added automatically from request for surgery [id number] Permanent atrial fibrillation 12/26/2015 Diverticulitis of large inte angélica without perforation or abscess without bleeding 11/17/2015 04/09/2021 Lymphedema of arm 10/16/2015 04/09/2021 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 female breast 08/04/2015 04/09/2021 UTI (urinary tract infection) 07/27/2015 Overview: Estrogen is contraindicated for her breast cancer but she is not able to keep the UTI off. Tried to abx daily but developed a c diff. This plan is agreed upon by her onco and her urologist Last Assessment & Plan: Estrogen is contraindicated for her breast cancer but she is not able to keep the UTI off. Tried to abx daily but developed a c diff. This plan is agreed upon by her onco and her urologist Malignant neoplasm of right female breast 201504/09/2021 Overview: The patient had tamoxifen for 5 years and then a gap and resumed after getting cancer for the second time. Last Assessment & Plan: The patient had tamoxifen for 5 years and then a gap and resumed after getting cancer for the second time. Abnormal mammogram of right breast 07/17/2015 04/09/2021 Pain of both shoulder joints 02/21/2015 Other and unspecified noninf ectious gastroenteritis and colitis(558.9) 11/03/2014 11/03/2014 Other specified rheumatoid arthritis, multiple s ites 05/06/2014 07/01/2018 Overview: Dx: 2014 She is on methotrexate and plaquenil Last Assessment & Plan: Dx: 2014 She is on methotrexate and plaquenil Acne rosacea 11/07/2013 04/15/2014 Folliculitis 11/07/2013 04/15/2014 Inflamed seborrheic keratosis 11/07/2013 Xerosis cutis 11/07/2013 04/15/2014 Solar lentigo 11/07/2013 04/15/2014 Crowley angioma 11/07/2013 04/15/2014 Pruritus 11/07/2013 04/15/2014 Backache, unspecified 07/09/2013 04/15/2014 Cutaneous skin tags 12/12/2012 04/14/2013 Intradermal nevus 12/12/2012 04/14/2013 Melanocytic nevi of trunk 12/12/20122013 Dermatofibroma of lower leg 12/12/201203/18 Urinary tract infection 09/02/2012 04/15/19 15 Abdominal pain 09/02/2012 04/15/2014 C. difficile colitis 09/02/2012 04/15/2014 Diverticulitis of colon (wit hout mention of hemorrhage)(562.11) 06/15/2012 04/15/2014 Other Seborrheic Keratoses 05/29/201204/15 Actinic skin damage 05/29/2012 04/15/2014 Epidermal cyst: L upper side nose 06/01/2011 04/15/2014 Xerosis cutis 06/01/2011 04/14/2013 Eczema intertrigo 04/25/2011 04/15/2014 Eczematous dermatitis 04/25/2011 04/14/2013 Intertrigo: Irritant fold area dermatitis 201104/14/2013 Urgency of urination 02/13/2011 04/15/2014 Female stress incontinence 02/13/201104/15 Urge incontinence 02/13/2011 04/15/2014 Recurrent UTI 01/28/2011 04/15/2014 Pain in joint, pelvic region and thigh 0 04/15/2014 Family history of malignant neoplasm of ovary 04/14/2013 Solar Lentigines 05/18/2009 04/14/2013 Crowley Angioma//Capillary Angioma 05/18/2009 04/14/2013 Melanocytic nevus of face 05/18/20092013 Melanocytic nevus of trunk 05/18/200904/14 SVT (supraventricular tachycardia) 03/31/2009 04/09/2021 Last Assessment & Plan: She is on coumadin, metoprolol. SEBORRHEIC KERATOSIS: IRRITATED//INFLAMED 200712/12/2012 Viral warts, unspecified 02/08/2008 013 Benign neoplasm of skin of o ther and unspecified parts of face 02/08/2008 12/12/2012 SEBACEOUS HYPERPLASIA//SEBACEOUS GLAND DIS NOS 1 04/09/2007 12/12/2012 Sebaceous cyst 02/08/2008 12/12/2012 Symptomatic menopausal or female climacteric sta tracy 02/04/2008 04/14/2013 Personal history of malignant neoplasm of breast 02/04/2008 04/15/2014 Other specified disorder of bladder 02/04/2008 02/13/2011 Nocturia 02/04/2008 04/15/2014 Episode Elevated Glucose after Steriod 8 04/15/2014 Diarrhea 10/14/2007 04/14/2013 Abdominal pain, left lower quadrant 10/08/2007 04/14/2013 MALIGN NEOPL BREAST NOS 08/18/2007 04/15/19 15 Postmenopausal atrophic vaginitis 07/28/2007 04/15/2014 HX BREAST CANCER 07/01/2007 04/09/2021 Overview: summer, and 2007. On tamoxifen Last Assessment & Plan: summer, and 2007. On tamoxifen Lump or mass in breast 06/24/2007 4 HX OF TUBULAR ADENOMA 04/27/2007 04/09/2021 NEURALGIA///NERV ROOT/PLEXUS DIS NEC 03/25/2007 04/15/2014 XEROSIS///SEBACEOUS GLAND DIS NEC 03/25/2007 02/17/2012 Seborrheic dermatitis, unspecified 03/25/2007 02/17/2012 Palpitations 01/21/2006 02/17/2012 DEGENERATED DISK DISEASE LUMBOSACRAL-NO MYELOPAT HY 01/21/2006 02/17/2012 ELEVATED SGPT 01/21/2006 02/17/2012 SEBORRHEIC KERATOSES 11/25/2005 02/17/2012 ACTINIC DAMAGE//CHR SOLAR SKIN DAMAGE NOS 200502/17/2012 SURGICAL SCAR & FIBROSIS OF SKIN 11/25/2005 02/17/2012 DERMATOFIBROMAS///BENIGN DARINEL SKIN LEG 11/25/2005 02/17/2012 INTRADERMAL NEVI (MELANOCYTIC)/// DARINEL SKIN TRUNK 11/25/2005 02/17/2012 SKIN TAG PAPILLOMAS///SKIN HYPERTRO/ATROPH NOS 0 11/25/2005 02/17/2012 Abdominal pain, unspecified site 10/25/2005 02/17/2012 Sprain of neck 07/05/2005 02/17/2012 FATTY INFILTRATION LIVER 05/14/2005 022 Other diseases of pharynx, not elsewhere classif ied(478.29) 04/14/2013 Unspecified hemorrhoids without mention of compl ication 04/14/2013 Overview: Hemorrhoids Lumbago 04/15/2014 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 Merino on recommendation of Dr. Angeline nath Last Assessment & Plan: She is on asacol for the past few months, it was started by Dr. Merino on recommendation of Dr. Angeline nath documented as of this encounter (statuses as of 06/22/2021) [facility]10-29-[facility]21 History of Past illness Narrative* Problem Noted Date Resolved Date Obesity, Class I, BMI 30-34.9 01/12/2021 GI bleed 01/12/2021 01/14/2021 Acute blood loss anemia 01/12/2021 01/15/20 LLQ pain 09/05/2017 04/09/2021 Overview: Added automatically from request for surgery [id number] Personal history of breast cancer 12/18/2016 04/09/2021 Overview: Added automatically from request for surgery [id number] Permanent atrial fibrillation 12/26/2015 Diverticulitis of large inte angélica without perforation or abscess without bleeding 11/17/2015 04/09/2021 Lymphedema of arm 10/16/2015 04/09/2021 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 female breast 08/04/2015 04/09/2021 UTI (urinary tract infection) 07/27/2015 Overview: Estrogen is contraindicated for her breast cancer but she is not able to keep the UTI off. Tried to abx daily but developed a c diff. This plan is agreed upon by her onco and her urologist Last Assessment & Plan: Estrogen is contraindicated for her breast cancer but she is not able to keep the UTI off. Tried to abx daily but developed a c diff. This plan is agreed upon by her onco and her urologist Malignant neoplasm of right female breast 201504/09/2021 Overview: The patient had tamoxifen for 5 years and then a gap and resumed after getting cancer for the second time. Last Assessment & Plan: The patient had tamoxifen for 5 years and then a gap and resumed after getting cancer for the second time. Abnormal mammogram of right breast 07/17/2015 04/09/2021 Pain of both shoulder joints 02/21/2015 Other and unspecified noninf ectious gastroenteritis and colitis(558.9) 11/03/2014 11/03/2014 Other specified rheumatoid arthritis, multiple s ites 05/06/2014 07/01/2018 Overview: Dx: 2014 She is on methotrexate and plaquenil Last Assessment & Plan: Dx: 2014 She is on methotrexate and plaquenil Acne rosacea 11/07/2013 04/15/2014 Folliculitis 11/07/2013 04/15/2014 Inflamed seborrheic keratosis 11/07/2013 Xerosis cutis 11/07/2013 04/15/2014 Solar lentigo 11/07/2013 04/15/2014 Crowley angioma 11/07/2013 04/15/2014 Pruritus 11/07/2013 04/15/2014 Backache, unspecified 07/09/2013 04/15/2014 Cutaneous skin tags 12/12/2012 04/14/2013 Intradermal nevus 12/12/2012 04/14/2013 Melanocytic nevi of trunk 12/12/20122013 Dermatofibroma of lower leg 12/12/201203/18 Urinary tract infection 09/02/2012 04/15/19 15 Abdominal pain 09/02/2012 04/15/2014 C. difficile colitis 09/02/2012 04/15/2014 Diverticulitis of colon (wit hout mention of hemorrhage)(562.11) 06/15/2012 04/15/2014 Other Seborrheic Keratoses 05/29/201204/15 Actinic skin damage 05/29/2012 04/15/2014 Epidermal cyst: L upper side nose 06/01/2011 04/15/2014 Xerosis cutis 06/01/2011 04/14/2013 Eczema intertrigo 04/25/2011 04/15/2014 Eczematous dermatitis 04/25/2011 04/14/2013 Intertrigo: Irritant fold area dermatitis 201104/14/2013 Urgency of urination 02/13/2011 04/15/2014 Female stress incontinence 02/13/201104/15 Urge incontinence 02/13/2011 04/15/2014 Recurrent UTI 01/28/2011 04/15/2014 Pain in joint, pelvic region and thigh 0 04/15/2014 Family history of malignant neoplasm of ovary 04/14/2013 Solar Lentigines 05/18/2009 04/14/2013 Crowley Angioma//Capillary Angioma 05/18/2009 04/14/2013 Melanocytic nevus of face 05/18/20092013 Melanocytic nevus of trunk 05/18/200904/14 SVT (supraventricular tachycardia) 03/31/2009 04/09/2021 Last Assessment & Plan: She is on coumadin, metoprolol. SEBORRHEIC KERATOSIS: IRRITATED//INFLAMED 200712/12/2012 Viral warts, unspecified 02/08/2008 013 Benign neoplasm of skin of o ther and unspecified parts of face 02/08/2008 12/12/2012 SEBACEOUS HYPERPLASIA//SEBACEOUS GLAND DIS NOS 1 04/09/2007 12/12/2012 Sebaceous cyst 02/08/2008 12/12/2012 Symptomatic menopausal or female climacteric sta tracy 02/04/2008 04/14/2013 Personal history of malignant neoplasm of breast 02/04/2008 04/15/2014 Other specified disorder of bladder 02/04/2008 02/13/2011 Nocturia 02/04/2008 04/15/2014 Episode Elevated Glucose after Steriod 8 04/15/2014 Diarrhea 10/14/2007 04/14/2013 Abdominal pain, left lower quadrant 10/08/2007 04/14/2013 MALIGN NEOPL BREAST NOS 08/18/2007 04/15/19 15 Postmenopausal atrophic vaginitis 07/28/2007 04/15/2014 HX BREAST CANCER 07/01/2007 04/09/2021 Overview: summer, and 2007. On tamoxifen Last Assessment & Plan: summer, and 2007. On tamoxifen Lump or mass in breast 06/24/2007 4 HX OF TUBULAR ADENOMA 04/27/2007 04/09/2021 NEURALGIA///NERV ROOT/PLEXUS DIS NEC 03/25/2007 04/15/2014 XEROSIS///SEBACEOUS GLAND DIS NEC 03/25/2007 02/17/2012 Seborrheic dermatitis, unspecified 03/25/2007 02/17/2012 Palpitations 01/21/2006 02/17/2012 DEGENERATED DISK DISEASE LUMBOSACRAL-NO MYELOPAT HY 01/21/2006 02/17/2012 ELEVATED SGPT 01/21/2006 02/17/2012 SEBORRHEIC KERATOSES 11/25/2005 02/17/2012 ACTINIC DAMAGE//CHR SOLAR SKIN DAMAGE NOS 200502/17/2012 SURGICAL SCAR & FIBROSIS OF SKIN 11/25/2005 02/17/2012 DERMATOFIBROMAS///BENIGN DARINEL SKIN LEG 11/25/2005 02/17/2012 INTRADERMAL NEVI (MELANOCYTIC)/// DARINEL SKIN TRUNK 11/25/2005 02/17/2012 SKIN TAG PAPILLOMAS///SKIN HYPERTRO/ATROPH NOS 0 11/25/2005 02/17/2012 Abdominal pain, unspecified site 10/25/2005 02/17/2012 Sprain of neck 07/05/2005 02/17/2012 FATTY INFILTRATION LIVER 05/14/2005 022 Other diseases of pharynx, not elsewhere classif ied(478.29) 04/14/2013 Unspecified hemorrhoids without mention of compl ication 04/14/2013 Overview: Hemorrhoids Lumbago 04/15/2014 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 Merino on recommendation of Dr. Angeline nath Last Assessment & Plan: She is on asacol for the past few months, it was started by Dr. Merino on recommendation of Dr. Angeline nath documented as of this encounter (statuses as of 06/26/2021) [facility]10-[facility]21 History of Past illness Narrative* Problem Noted Date Resolved Date Obesity, Class I, BMI 30-34.9 01/12/2021 GI bleed 01/12/2021 01/14/2021 Acute blood loss anemia 01/12/2021 01/15/20 21 LLQ pain 09/05/2017 04/09/2021 Overview: Added automatically from request for surgery [id number] Personal history of breast cancer 12/18/2016 04/09/2021 Overview: Added automatically from request for surgery [id number] Permanent atrial fibrillation 12/26/2015 Diverticulitis of large inte angélica without perforation or abscess without bleeding 11/17/2015 04/09/2021 Lymphedema of arm 10/16/2015 04/09/2021 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 female breast 08/04/2015 04/09/2021 UTI (urinary tract infection) 07/27/2015 Overview: Estrogen is contraindicated for her breast cancer but she is not able to keep the UTI off. Tried to abx daily but developed a c diff. This plan is agreed upon by her onco and her urologist Last Assessment & Plan: Estrogen is contraindicated for her breast cancer but she is not able to keep the UTI off. Tried to abx daily but developed a c diff. This plan is agreed upon by her onco and her urologist Malignant neoplasm of right female breast 201504/09/2021 Overview: The patient had tamoxifen for 5 years and then a gap and resumed after getting cancer for the second time. Last Assessment & Plan: The patient had tamoxifen for 5 years and then a gap and resumed after getting cancer for the second time. Abnormal mammogram of right breast 07/17/2015 04/09/2021 Pain of both shoulder joints 02/21/2015 Other and unspecified noninf ectious gastroenteritis and colitis(558.9) 11/03/2014 11/03/2014 Other specified rheumatoid arthritis, multiple s ites 05/06/2014 07/01/2018 Overview: Dx: 2014 She is on methotrexate and plaquenil Last Assessment & Plan: Dx: 2014 She is on methotrexate and plaquenil Acne rosacea 11/07/2013 04/15/2014 Folliculitis 11/07/2013 04/15/2014 Inflamed seborrheic keratosis 11/07/2013 Xerosis cutis 11/07/2013 04/15/2014 Solar lentigo 11/07/2013 04/15/2014 Crowley angioma 11/07/2013 04/15/2014 Pruritus 11/07/2013 04/15/2014 Backache, unspecified 07/09/2013 04/15/2014 Cutaneous skin tags 12/12/2012 04/14/2013 Intradermal nevus 12/12/2012 04/14/2013 Melanocytic nevi of trunk 12/12/20122013 Dermatofibroma of lower leg 12/12/201203/18 Urinary tract infection 09/02/2012 04/15/19 15 Abdominal pain 09/02/2012 04/15/2014 C. difficile colitis 09/02/2012 04/15/2014 Diverticulitis of colon (wit hout mention of hemorrhage)(562.11) 06/15/2012 04/15/2014 Other Seborrheic Keratoses 05/29/201204/15 Actinic skin damage 05/29/2012 04/15/2014 Epidermal cyst: L upper side nose 06/01/2011 04/15/2014 Xerosis cutis 06/01/2011 04/14/2013 Eczema intertrigo 04/25/2011 04/15/2014 Eczematous dermatitis 04/25/2011 04/14/2013 Intertrigo: Irritant fold area dermatitis 201104/14/2013 Urgency of urination 02/13/2011 04/15/2014 Female stress incontinence 02/13/201104/15 Urge incontinence 02/13/2011 04/15/2014 Recurrent UTI 01/28/2011 04/15/2014 Pain in joint, pelvic region and thigh 0 04/15/2014 Family history of malignant neoplasm of ovary 04/14/2013 Solar Lentigines 05/18/2009 04/14/2013 Crowley Angioma//Capillary Angioma 05/18/2009 04/14/2013 Melanocytic nevus of face 05/18/20092013 Melanocytic nevus of trunk 05/18/200904/14 SVT (supraventricular tachycardia) 03/31/2009 04/09/2021 Last Assessment & Plan: She is on coumadin, metoprolol. SEBORRHEIC KERATOSIS: IRRITATED//INFLAMED 200712/12/2012 Viral warts, unspecified 02/08/2008 013 Benign neoplasm of skin of o ther and unspecified parts of face 02/08/2008 12/12/2012 SEBACEOUS HYPERPLASIA//SEBACEOUS GLAND DIS NOS 1 04/09/2007 12/12/2012 Sebaceous cyst 02/08/2008 12/12/2012 Symptomatic menopausal or female climacteric sta tracy 02/04/2008 04/14/2013 Personal history of malignant neoplasm of breast 02/04/2008 04/15/2014 Other specified disorder of bladder 02/04/2008 02/13/2011 Nocturia 02/04/2008 04/15/2014 Episode Elevated Glucose after Steriod 8 04/15/2014 Diarrhea 10/14/2007 04/14/2013 Abdominal pain, left lower quadrant 10/08/2007 04/14/2013 MALIGN NEOPL BREAST NOS 08/18/2007 04/15/19 15 Postmenopausal atrophic vaginitis 07/28/2007 04/15/2014 HX BREAST CANCER 07/01/2007 04/09/2021 Overview: summer, and 2007. On tamoxifen Last Assessment & Plan: summer, and 2007. On tamoxifen Lump or mass in breast 06/24/2007 4 HX OF TUBULAR ADENOMA 04/27/2007 04/09/2021 NEURALGIA///NERV ROOT/PLEXUS DIS NEC 03/25/2007 04/15/2014 XEROSIS///SEBACEOUS GLAND DIS NEC 03/25/2007 02/17/2012 Seborrheic dermatitis, unspecified 03/25/2007 02/17/2012 Palpitations 01/21/2006 02/17/2012 DEGENERATED DISK DISEASE LUMBOSACRAL-NO MYELOPAT HY 01/21/2006 02/17/2012 ELEVATED SGPT 01/21/2006 02/17/2012 SEBORRHEIC KERATOSES 11/25/2005 02/17/2012 ACTINIC DAMAGE//CHR SOLAR SKIN DAMAGE NOS 200502/17/2012 SURGICAL SCAR & FIBROSIS OF SKIN 11/25/2005 02/17/2012 DERMATOFIBROMAS///BENIGN DARINEL SKIN LEG 11/25/2005 02/17/2012 INTRADERMAL NEVI (MELANOCYTIC)/// DARINEL SKIN TRUNK 11/25/2005 02/17/2012 SKIN TAG PAPILLOMAS///SKIN HYPERTRO/ATROPH NOS 0 11/25/2005 02/17/2012 Abdominal pain, unspecified site 10/25/2005 02/17/2012 Sprain of neck 07/05/2005 02/17/2012 FATTY INFILTRATION LIVER 05/14/2005 022 Other diseases of pharynx, not elsewhere classif ied(478.29) 04/14/2013 Unspecified hemorrhoids without mention of compl ication 04/14/2013 Overview: Hemorrhoids Lumbago 04/15/2014 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 Merino on recommendation of Dr. Angeline nath Last Assessment & Plan: She is on asacol for the past few months, it was started by Dr. Merino on recommendation of Dr. Angeline nath documented as of this encounter (statuses as of 07/03/2021) [facility]10[facility] History of Past illness Narrative* Problem Noted Date Resolved Date Obesity, Class I, BMI 30-34.9 01/12/2021 GI bleed 01/12/2021 01/14/2021 Acute blood loss anemia 01/12/2021 01/15/20 21 LLQ pain 09/05/2017 04/09/2021 Overview: Added automatically from request for surgery [id number] Personal history of breast cancer 12/18/2016 04/09/2021 Overview: Added automatically from request for surgery [id number] Permanent atrial fibrillation 12/26/2015 Diverticulitis of large inte angélica without perforation or abscess without bleeding 11/17/2015 04/09/2021 Lymphedema of arm 10/16/2015 04/09/2021 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 female breast 08/04/2015 04/09/2021 UTI (urinary tract infection) 07/27/2015 Overview: Estrogen is contraindicated for her breast cancer but she is not able to keep the UTI off. Tried to abx daily but developed a c diff. This plan is agreed upon by her onco and her urologist Last Assessment & Plan: Estrogen is contraindicated for her breast cancer but she is not able to keep the UTI off. Tried to abx daily but developed a c diff. This plan is agreed upon by her onco and her urologist Malignant neoplasm of right female breast 201504/09/2021 Overview: The patient had tamoxifen for 5 years and then a gap and resumed after getting cancer for the second time. Last Assessment & Plan: The patient had tamoxifen for 5 years and then a gap and resumed after getting cancer for the second time. Abnormal mammogram of right breast 07/17/2015 04/09/2021 Pain of both shoulder joints 02/21/2015 Other and unspecified noninf ectious gastroenteritis and colitis(558.9) 11/03/2014 11/03/2014 Other specified rheumatoid arthritis, multiple s ites 05/06/2014 07/01/2018 Overview: Dx: 2014 She is on methotrexate and plaquenil Last Assessment & Plan: Dx: 2014 She is on methotrexate and plaquenil Acne rosacea 11/07/2013 04/15/2014 Folliculitis 11/07/2013 04/15/2014 Inflamed seborrheic keratosis 11/07/2013 Xerosis cutis 11/07/2013 04/15/2014 Solar lentigo 11/07/2013 04/15/2014 Crowley angioma 11/07/2013 04/15/2014 Pruritus 11/07/2013 04/15/2014 Backache, unspecified 07/09/2013 04/15/2014 Cutaneous skin tags 12/12/2012 04/14/2013 Intradermal nevus 12/12/2012 04/14/2013 Melanocytic nevi of trunk 12/12/20122013 Dermatofibroma of lower leg 12/12/201203/18 Urinary tract infection 09/02/2012 04/15/19 15 Abdominal pain 09/02/2012 04/15/2014 C. difficile colitis 09/02/2012 04/15/2014 Diverticulitis of colon (wit hout mention of hemorrhage)(562.11) 06/15/2012 04/15/2014 Other Seborrheic Keratoses 05/29/201204/15 Actinic skin damage 05/29/2012 04/15/2014 Epidermal cyst: L upper side nose 06/01/2011 04/15/2014 Xerosis cutis 06/01/2011 04/14/2013 Eczema intertrigo 04/25/2011 04/15/2014 Eczematous dermatitis 04/25/2011 04/14/2013 Intertrigo: Irritant fold area dermatitis 201104/14/2013 Urgency of urination 02/13/2011 04/15/2014 Female stress incontinence 02/13/201104/15 Urge incontinence 02/13/2011 04/15/2014 Recurrent UTI 01/28/2011 04/15/2014 Pain in joint, pelvic region and thigh 0 04/15/2014 Family history of malignant neoplasm of ovary 04/14/2013 Solar Lentigines 05/18/2009 04/14/2013 Crowley Angioma//Capillary Angioma 05/18/2009 04/14/2013 Melanocytic nevus of face 05/18/20092013 Melanocytic nevus of trunk 05/18/200904/14 SVT (supraventricular tachycardia) 03/31/2009 04/09/2021 Last Assessment & Plan: She is on coumadin, metoprolol. SEBORRHEIC KERATOSIS: IRRITATED//INFLAMED 200712/12/2012 Viral warts, unspecified 02/08/2008 013 Benign neoplasm of skin of o ther and unspecified parts of face 02/08/2008 12/12/2012 SEBACEOUS HYPERPLASIA//SEBACEOUS GLAND DIS NOS 1 04/09/2007 12/12/2012 Sebaceous cyst 02/08/2008 12/12/2012 Symptomatic menopausal or female climacteric sta tracy 02/04/2008 04/14/2013 Personal history of malignant neoplasm of breast 02/04/2008 04/15/2014 Other specified disorder of bladder 02/04/2008 02/13/2011 Nocturia 02/04/2008 04/15/2014 Episode Elevated Glucose after Steriod 8 04/15/2014 Diarrhea 10/14/2007 04/14/2013 Abdominal pain, left lower quadrant 10/08/2007 04/14/2013 MALIGN NEOPL BREAST NOS 08/18/2007 04/15/19 15 Postmenopausal atrophic vaginitis 07/28/2007 04/15/2014 HX BREAST CANCER 07/01/2007 04/09/2021 Overview: Summer of 2015, and 2007. On tamoxifen Last Assessment & Plan: Summer of 2015, and 2007. On tamoxifen Lump or mass in breast 06/24/2007 4 HX OF TUBULAR ADENOMA 04/27/2007 04/09/2021 NEURALGIA///NERV ROOT/PLEXUS DIS NEC 03/25/2007 04/15/2014 XEROSIS///SEBACEOUS GLAND DIS NEC 03/25/2007 02/17/2012 Seborrheic dermatitis, unspecified 03/25/2007 02/17/2012 Palpitations 01/21/2006 02/17/2012 DEGENERATED DISK DISEASE LUMBOSACRAL-NO MYELOPAT HY 01/21/2006 02/17/2012 ELEVATED SGPT 01/21/2006 02/17/2012 SEBORRHEIC KERATOSES 11/25/2005 02/17/2012 ACTINIC DAMAGE//CHR SOLAR SKIN DAMAGE NOS 200502/17/2012 SURGICAL SCAR & FIBROSIS OF SKIN 11/25/2005 02/17/2012 DERMATOFIBROMAS///BENIGN DARINEL SKIN LEG 11/25/2005 02/17/2012 INTRADERMAL NEVI (MELANOCYTIC)/// DARINEL SKIN TRUNK 11/25/2005 02/17/2012 SKIN TAG PAPILLOMAS///SKIN HYPERTRO/ATROPH NOS 0 11/25/2005 02/17/2012 Abdominal pain, unspecified site 10/25/2005 02/17/2012 Sprain of neck 07/05/2005 02/17/2012 FATTY INFILTRATION LIVER 05/14/2005 022 Other diseases of pharynx, not elsewhere classif ied(478.29) 04/14/2013 Unspecified hemorrhoids without mention of compl ication 04/14/2013 Overview: Hemorrhoids Lumbago 04/15/2014 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 Merino on recommendation of Dr. Angeline nath Last Assessment & Plan: She is on asacol for the past few months, it was started by Dr. Merino on recommendation of Dr. Angeline nath documented as of this encounter (statuses as of 07/05/2021) [facility] History of Past illness Narrative* Problem Noted Date Resolved Date Obesity, Class I, BMI 30-34.9 01/12/2021 GI bleed 01/12/2021 01/14/2021 Acute blood loss anemia 01/12/2021 01/15/20 LLQ pain 09/05/2017 04/09/2021 Overview: Added automatically from request for surgery [id number] Personal history of breast cancer 12/18/2016 04/09/2021 Overview: Added automatically from request for surgery [id number] Permanent atrial fibrillation 12/26/2015 Diverticulitis of large inte angélica without perforation or abscess without bleeding 11/17/2015 04/09/2021 Lymphedema of arm 10/16/2015 04/09/2021 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 female breast 08/04/2015 04/09/2021 UTI (urinary tract infection) 07/27/2015 Overview: Estrogen is contraindicated for her breast cancer but she is not able to keep the UTI off. Tried to abx daily but developed a c diff. This plan is agreed upon by her onco and her urologist Last Assessment & Plan: Estrogen is contraindicated for her breast cancer but she is not able to keep the UTI off. Tried to abx daily but developed a c diff. This plan is agreed upon by her onco and her urologist Malignant neoplasm of right female breast 201504/09/2021 Overview: The patient had tamoxifen for 5 years and then a gap and resumed after getting cancer for the second time. Last Assessment & Plan: The patient had tamoxifen for 5 years and then a gap and resumed after getting cancer for the second time. Abnormal mammogram of right breast 07/17/2015 04/09/2021 Pain of both shoulder joints 02/21/2015 Other and unspecified noninf ectious gastroenteritis and colitis(558.9) 11/03/2014 11/03/2014 Other specified rheumatoid arthritis, multiple s ites 05/06/2014 07/01/2018 Overview: Dx: 2014 She is on methotrexate and plaquenil Last Assessment & Plan: Dx: 2014 She is on methotrexate and plaquenil Acne rosacea 11/07/2013 04/15/2014 Folliculitis 11/07/2013 04/15/2014 Inflamed seborrheic keratosis 11/07/2013 Xerosis cutis 11/07/2013 04/15/2014 Solar lentigo 11/07/2013 04/15/2014 Crowley angioma 11/07/2013 04/15/2014 Pruritus 11/07/2013 04/15/2014 Backache, unspecified 07/09/2013 04/15/2014 Cutaneous skin tags 12/12/2012 04/14/2013 Intradermal nevus 12/12/2012 04/14/2013 Melanocytic nevi of trunk 12/12/20122013 Dermatofibroma of lower leg 12/12/201203/18 Urinary tract infection 09/02/2012 04/15/19 15 Abdominal pain 09/02/2012 04/15/2014 C. difficile colitis 09/02/2012 04/15/2014 Diverticulitis of colon (wit hout mention of hemorrhage)(562.11) 06/15/2012 04/15/2014 Other Seborrheic Keratoses 05/29/201204/15 Actinic skin damage 05/29/2012 04/15/2014 Epidermal cyst: L upper side nose 06/01/2011 04/15/2014 Xerosis cutis 06/01/2011 04/14/2013 Eczema intertrigo 04/25/2011 04/15/2014 Eczematous dermatitis 04/25/2011 04/14/2013 Intertrigo: Irritant fold area dermatitis 201104/14/2013 Urgency of urination 02/13/2011 04/15/2014 Female stress incontinence 02/13/201104/15 Urge incontinence 02/13/2011 04/15/2014 Recurrent UTI 01/28/2011 04/15/2014 Pain in joint, pelvic region and thigh 0 04/15/2014 Family history of malignant neoplasm of ovary 04/14/2013 Solar Lentigines 05/18/2009 04/14/2013 Crowley Angioma//Capillary Angioma 05/18/2009 04/14/2013 Melanocytic nevus of face 05/18/20092013 Melanocytic nevus of trunk 05/18/200904/14 SVT (supraventricular tachycardia) 03/31/2009 04/09/2021 Last Assessment & Plan: She is on coumadin, metoprolol. SEBORRHEIC KERATOSIS: IRRITATED//INFLAMED 200712/12/2012 Viral warts, unspecified 02/08/2008 013 Benign neoplasm of skin of o ther and unspecified parts of face 02/08/2008 12/12/2012 SEBACEOUS HYPERPLASIA//SEBACEOUS GLAND DIS NOS 1 04/09/2007 12/12/2012 Sebaceous cyst 02/08/2008 12/12/2012 Symptomatic menopausal or female climacteric sta tracy 02/04/2008 04/14/2013 Personal history of malignant neoplasm of breast 02/04/2008 04/15/2014 Other specified disorder of bladder 02/04/2008 02/13/2011 Nocturia 02/04/2008 04/15/2014 Episode Elevated Glucose after Steriod 8 04/15/2014 Diarrhea 10/14/2007 04/14/2013 Abdominal pain, left lower quadrant 10/08/2007 04/14/2013 MALIGN NEOPL BREAST NOS 08/18/2007 04/15/19 15 Postmenopausal atrophic vaginitis 07/28/2007 04/15/2014 HX BREAST CANCER 07/01/2007 04/09/2021 Overview: Summer of 2015, and 2007. On tamoxifen Last Assessment & Plan: Summer of 2015, and 2007. On tamoxifen Lump or mass in breast 06/24/2007 4 HX OF TUBULAR ADENOMA 04/27/2007 04/09/2021 NEURALGIA///NERV ROOT/PLEXUS DIS NEC 03/25/2007 04/15/2014 XEROSIS///SEBACEOUS GLAND DIS NEC 03/25/2007 02/17/2012 Seborrheic dermatitis, unspecified 03/25/2007 02/17/2012 Palpitations 01/21/2006 02/17/2012 DEGENERATED DISK DISEASE LUMBOSACRAL-NO MYELOPAT HY 01/21/2006 02/17/2012 ELEVATED SGPT 01/21/2006 02/17/2012 SEBORRHEIC KERATOSES 11/25/2005 02/17/2012 ACTINIC DAMAGE//CHR SOLAR SKIN DAMAGE NOS 200502/17/2012 SURGICAL SCAR & FIBROSIS OF SKIN 11/25/2005 02/17/2012 DERMATOFIBROMAS///BENIGN DARINEL SKIN LEG 11/25/2005 02/17/2012 INTRADERMAL NEVI (MELANOCYTIC)/// DARINEL SKIN TRUNK 11/25/2005 02/17/2012 SKIN TAG PAPILLOMAS///SKIN HYPERTRO/ATROPH NOS 0 11/25/2005 02/17/2012 Abdominal pain, unspecified site 10/25/2005 02/17/2012 Sprain of neck 07/05/2005 02/17/2012 FATTY INFILTRATION LIVER 05/14/2005 022 Other diseases of pharynx, not elsewhere classif ied(478.29) 04/14/2013 Unspecified hemorrhoids without mention of compl ication 04/14/2013 Overview: Hemorrhoids Lumbago 04/15/2014 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 Merino on recommendation of Dr. Angeline nath Last Assessment & Plan: She is on asacol for the past few months, it was started by Dr. Merino on recommendation of Dr. Angeline nath documented as of this encounter (statuses as of 07/05/2021) [facility]10-29-[facility]21 History of Past illness Narrative* Problem Noted Date Resolved Date Obesity, Class I, BMI 30-34.9 01/12/2021 GI bleed 01/12/2021 01/14/2021 Acute blood loss anemia 01/12/2021 01/15/20 LLQ pain 09/05/2017 04/09/2021 Overview: Added automatically from request for surgery [id number] Personal history of breast cancer 12/18/2016 04/09/2021 Overview: Added automatically from request for surgery [id number] Permanent atrial fibrillation 12/26/2015 Diverticulitis of large inte angélica without perforation or abscess without bleeding 11/17/2015 04/09/2021 Lymphedema of arm 10/16/2015 04/09/2021 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 female breast 08/04/2015 04/09/2021 UTI (urinary tract infection) 07/27/2015 Overview: Estrogen is contraindicated for her breast cancer but she is not able to keep the UTI off. Tried to abx daily but developed a c diff. This plan is agreed upon by her onco and her urologist Last Assessment & Plan: Estrogen is contraindicated for her breast cancer but she is not able to keep the UTI off. Tried to abx daily but developed a c diff. This plan is agreed upon by her onco and her urologist Malignant neoplasm of right female breast 201504/09/2021 Overview: The patient had tamoxifen for 5 years and then a gap and resumed after getting cancer for the second time. Last Assessment & Plan: The patient had tamoxifen for 5 years and then a gap and resumed after getting cancer for the second time. Abnormal mammogram of right breast 07/17/2015 04/09/2021 Pain of both shoulder joints 02/21/2015 Other and unspecified noninf ectious gastroenteritis and colitis(558.9) 11/03/2014 11/03/2014 Other specified rheumatoid arthritis, multiple s ites 05/06/2014 07/01/2018 Overview: Dx: 2014 She is on methotrexate and plaquenil Last Assessment & Plan: Dx: 2014 She is on methotrexate and plaquenil Acne rosacea 11/07/2013 04/15/2014 Folliculitis 11/07/2013 04/15/2014 Inflamed seborrheic keratosis 11/07/2013 Xerosis cutis 11/07/2013 04/15/2014 Solar lentigo 11/07/2013 04/15/2014 Crowley angioma 11/07/2013 04/15/2014 Pruritus 11/07/2013 04/15/2014 Backache, unspecified 07/09/2013 04/15/2014 Cutaneous skin tags 12/12/2012 04/14/2013 Intradermal nevus 12/12/2012 04/14/2013 Melanocytic nevi of trunk 12/12/20122013 Dermatofibroma of lower leg 12/12/201203/18 Urinary tract infection 09/02/2012 04/15/19 15 Abdominal pain 09/02/2012 04/15/2014 C. difficile colitis 09/02/2012 04/15/2014 Diverticulitis of colon (wit hout mention of hemorrhage)(562.11) 06/15/2012 04/15/2014 Other Seborrheic Keratoses 05/29/201204/15 Actinic skin damage 05/29/2012 04/15/2014 Epidermal cyst: L upper side nose 06/01/2011 04/15/2014 Xerosis cutis 06/01/2011 04/14/2013 Eczema intertrigo 04/25/2011 04/15/2014 Eczematous dermatitis 04/25/2011 04/14/2013 Intertrigo: Irritant fold area dermatitis 201104/14/2013 Urgency of urination 02/13/2011 04/15/2014 Female stress incontinence 02/13/201104/15 Urge incontinence 02/13/2011 04/15/2014 Recurrent UTI 01/28/2011 04/15/2014 Pain in joint, pelvic region and thigh 0 04/15/2014 Family history of malignant neoplasm of ovary 04/14/2013 Solar Lentigines 05/18/2009 04/14/2013 Crowley Angioma//Capillary Angioma 05/18/2009 04/14/2013 Melanocytic nevus of face 05/18/20092013 Melanocytic nevus of trunk 05/18/200904/14 SVT (supraventricular tachycardia) 03/31/2009 04/09/2021 Last Assessment & Plan: She is on coumadin, metoprolol. SEBORRHEIC KERATOSIS: IRRITATED//INFLAMED 200712/12/2012 Viral warts, unspecified 02/08/2008 013 Benign neoplasm of skin of o ther and unspecified parts of face 02/08/2008 12/12/2012 SEBACEOUS HYPERPLASIA//SEBACEOUS GLAND DIS NOS 1 04/09/2007 12/12/2012 Sebaceous cyst 02/08/2008 12/12/2012 Symptomatic menopausal or female climacteric sta tracy 02/04/2008 04/14/2013 Personal history of malignant neoplasm of breast 02/04/2008 04/15/2014 Other specified disorder of bladder 02/04/2008 02/13/2011 Nocturia 02/04/2008 04/15/2014 Episode Elevated Glucose after Steriod 8 04/15/2014 Diarrhea 10/14/2007 04/14/2013 Abdominal pain, left lower quadrant 10/08/2007 04/14/2013 MALIGN NEOPL BREAST NOS 08/18/2007 04/15/19 15 Postmenopausal atrophic vaginitis 07/28/2007 04/15/2014 HX BREAST CANCER 07/01/2007 04/09/2021 Overview: Summer of 2015, and 2007. On tamoxifen Last Assessment & Plan: Summer of 2015, and 2007. On tamoxifen Lump or mass in breast 06/24/2007 4 HX OF TUBULAR ADENOMA 04/27/2007 04/09/2021 NEURALGIA///NERV ROOT/PLEXUS DIS NEC 03/25/2007 04/15/2014 XEROSIS///SEBACEOUS GLAND DIS NEC 03/25/2007 02/17/2012 Seborrheic dermatitis, unspecified 03/25/2007 02/17/2012 Palpitations 01/21/2006 02/17/2012 DEGENERATED DISK DISEASE LUMBOSACRAL-NO MYELOPAT HY 01/21/2006 02/17/2012 ELEVATED SGPT 01/21/2006 02/17/2012 SEBORRHEIC KERATOSES 11/25/2005 02/17/2012 ACTINIC DAMAGE//CHR SOLAR SKIN DAMAGE NOS 200502/17/2012 SURGICAL SCAR & FIBROSIS OF SKIN 11/25/2005 02/17/2012 DERMATOFIBROMAS///BENIGN DARINEL SKIN LEG 11/25/2005 02/17/2012 INTRADERMAL NEVI (MELANOCYTIC)/// DARINEL SKIN TRUNK 11/25/2005 02/17/2012 SKIN TAG PAPILLOMAS///SKIN HYPERTRO/ATROPH NOS 0 11/25/2005 02/17/2012 Abdominal pain, unspecified site 10/25/2005 02/17/2012 Sprain of neck 07/05/2005 02/17/2012 FATTY INFILTRATION LIVER 05/14/2005 022 Other diseases of pharynx, not elsewhere classif ied(478.29) 04/14/2013 Unspecified hemorrhoids without mention of compl ication 04/14/2013 Overview: Hemorrhoids Lumbago 04/15/2014 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 Merino on recommendation of Dr. Angeline nath Last Assessment & Plan: She is on asacol for the past few months, it was started by Dr. Merino on recommendation of Dr. Angeline nath documented as of this encounter (statuses as of 07/06/2021) [facility]10-27-2021 NoteHNO ID: [id number] Author: ANIKET Martin Service: Radiology Author Type: Clinical [employer] Type: Progress Notes Filed: 01/10/2021 10:31 AM Note Text: RADIOLOGY SERVICE PROGRESS NOTE SERVICE DATE: 01/10/2021 SERVICE TIME: 10:30 AM PATIENT IDENTITY VERIFICATION COMPLETED USING TWO (2) STANDARD IDENTIFIERS: Name and Date of confirmed by patient verbally and Name and Date of confirmed by identification band FALL SCREENING: Has the patient had 2 falls in the last year or 1 fall with injury or currently using an Ambulatory Assistive Device (Walker, Cane, Wheelchair, Crutches, etc.)? Yes, Patient High Risk for Falls What interventions were put in place to prevent falls during this visit? [place] Risk Wristband Applied, Offered Assistance with Transfers/Clothing and Increased Observations by Caregivers PATIENT GENDER DATA: .female : No ALLERGIES: Reviewed and unchanged MEDICATIONS REVIEWED: Not applicable PATIENT RELEVANT IMPLANT DATA REVIEWED: Not Applicable CREATININE: Creatinine Date Value Ref Range Status 01/03/2021 0.70 0.58 - 0.96 mg/dL Final 12/06/2020 0.65 0.58 - 0.96 mg/dL Final 11/27/2020 0.64 0.58 - 0.96 mg/dL Final eGFR-All Other Races Date Value Ref Range Status 01/03/2021 >60 . Final Comment: eGFR (Estimated GFR) Units of measure: mL/min/1.73 meters squared eGFR is derived from the reexpressed MDRD Study equation using the following parameters: serum creatinine, age, gender and race. The creatinine assay has been calibrated to be traceable to IDMS. An eGFR <60 mL/min/1.73m2 for >3 months is consistent with chronic kidney disease. Refer to KDOQI guidelines for clinical interpretation. In patients with unstable renal function, e.g. those with acute kidney injury, the eGFR may not accurately reflect actual GFR. eGFR- Date Value Ref Range Status 01/03/2021 >60 Final P.O.C.T. RESULTS: N/A January 10, [address] PERFORMED: No IV SITE: Ambulatory: A peripheral IV was started in the Left antecubital site with a Angio cath: 22 gauge. POST EXAM PIV STATUS: Discontinued PROCEDURE TYPE: NM Stress: 12.1mCi [id number] was administered IV for Rest Imaging at 9:05 by ANIKET Martin. 31.2 mCi [id number] was administered IV for Stress Imaging at 10:02 by ANIKET Martin. PATIENT DISCHARGED TO: Ambulatory patient, left [place] department area. A Diagnostic radioactive procedure has taken place, with no further precautions necessary other than routine body substance precautions. More information regarding radiation safety can be found using this link: [email or web address] SIGNATURE: RAMOS MartinMT PATIENT NAME: Christian Landrum DATE: January 10, 2021 TIME: 10:30 AM PAGER/CONTACT #:[facility] note* Diagnosis Venous (peripheral) insufficiency- Primary Unspecified venous (peripheral) insufficiency documented in this encounter [facility] note* Diagnosis shelter (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 anticoagulants Long-term (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 anticoagulants Paroxysmal atrial fibrillation (HCC) Atrial fibrillation [facility]* Diagnosis Malignant neoplasm of lower-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, estrogen receptor positive (HCC)- Primary [facility]* Diagnosis Dysuria- Primary Right upper quadrant abdominal pain Abdominal pain, right upper quadrant Chronic anticoagulation Long-term (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 anticoagulants [facility]* Diagnosis Polymyalgia rheumatica (HCC)- Primary Polymyalgia rheumatica [facility] Diagnosis Calculus of gallbladder without cholecystitis without obstruction- Primary Calculus of gallbladder without mention of cholecystitis or obstruction Secondary biliary cirrhosis (HCC) Biliary cirrhosis [facility] Diagnosis Malignant neoplasm of lower-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, estrogen receptor positive (HCC)- Primary [facility] Diagnosis shelter (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 anticoagulants Long-term (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 anticoagulants Paroxysmal atrial fibrillation (HCC) Atrial fibrillation [facility] Diagnosis History of recent hospitalization- Primary Personal history of unspecified disease Dysuria Recurrent UTI Urinary tract infection, site not specified Cirrhosis of liver with ascites, unspecified hepatic cirrhosis type (HCC) Biliary colic Calculus of gallbladder without mention of cholecystitis or obstruction [facility] Diagnosis Dysuria- Primary [facility] Diagnosis shelter (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 anticoagulants Long-term (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 anticoagulants Paroxysmal atrial fibrillation (HCC) [facility]rial [facility] Diagnosis Acute cystitis without hematuria- Primary Acute cystitis PMB (postmenopausal bleeding) Postmenopausal bleeding Endometrial thickening on ultrasound [facility] shelter (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 anticoagulants Long-term (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 anticoagulants Paroxysmal atrial fibrillation (HCC) Atrial fibrillation [facility]* Diagnosis PMB (postmenopausal bleeding)- Primary Postmenopausal bleeding Endometrial thickening on ultrasound [facility]* Diagnosis Old laceration of cervix uteri- Primary Old laceration of cervix Abnormal uterine bleeding (AUB) [facility]* Diagnosis Recurrent UTI- Primary Urinary tract infection, site not specified Mixed stress and urge urinary incontinence Mixed incontinence urge and stress (male)(female) Old laceration of cervix uteri Old laceration of cervix [facility]* Diagnosis 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 Long-term (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 anticoagulants Paroxysmal atrial fibrillation (HCC) Atrial fibrillation [facility]* Diagnosis Paroxysmal atrial fibrillation (HCC)- Primary Atrial fibrillation Rheumatic mitral regurgitation Rheumatic mitral insufficiency Essential hypertension Unspecified essential hypertension Mixed hyperlipidemia Hyperglycemia Other abnormal glucose PAF (paroxysmal atrial fibrillation) (HCC) Atrial fibrillation Shortness of breath SVT (supraventricular tachycardia) (HCC) Other specified cardiac dysrhythmias [facility]* Diagnosis Old laceration of cervix uteri- Primary Old laceration of cervix [facility]* Diagnosis Malignant neoplasm of lower-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, estrogen receptor positive (HCC)- Primary [facility]* Diagnosis Malignant neoplasm of lower-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, estrogen receptor positive (HCC)- Primary [facility]* Diagnosis Recurrent UTI- Primary Urinary tract infection, site not specified History of ESBL E. coli infection Personal history of other infectious and parasitic disease Mixed stress and urge urinary incontinence Mixed incontinence urge and stress (male)(female) [facility]* Diagnosis Recurrent UTI Urinary tract infection, site not specified History of ESBL E. coli infection Personal history of other infectious and parasitic disease [facility]* Diagnosis Chronic anticoagulation- Primary Long-term (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 anticoagulants [facility]* Diagnosis Malignant neoplasm of lower-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, estrogen receptor positive (HCC)- Primary Chronic anticoagulation Long-term (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 anticoagulants [facility]* Diagnosis shelter (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 anticoagulants Long-term (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 anticoagulants Paroxysmal atrial fibrillation (HCC) Atrial fibrillation [facility] Diagnosis BRBPR (bright red blood per rectum)- Primary Hemorrhage of rectum and anus shelter (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 anticoagulants Long-term (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 anticoagulants Paroxysmal atrial fibrillation (HCC) Atrial fibrillation [facility]* Diagnosis 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 Long-term (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 anticoagulants Paroxysmal atrial fibrillation (HCC) Atrial fibrillation [facility]* Diagnosis Malignant neoplasm of lower-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, estrogen receptor positive (HCC)- Primary [facility]* Diagnosis Malignant neoplasm of lower-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, estrogen receptor positive (HCC)- Primary [facility]* Diagnosis Recurrent UTI- Primary Urinary tract infection, site not specified History of ESBL E. coli infection Personal history of other infectious and parasitic disease Vaginal atrophy Postmenopausal atrophic vaginitis [facility]* Diagnosis Primary osteoarthritis of both knees- Primary Primary localized osteoarthrosis, lower leg Chronic pain of right knee [facility]* Diagnosis Anemia, unspecified type- Primary [facility]* Diagnosis Malignant neoplasm of lower-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, estrogen receptor positive (HCC)- Primary [facility]* Diagnosis 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 (chronic) [facility]* Diagnosis Malignant neoplasm of lower-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, estrogen receptor positive (HCC)- Primary 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 blood loss (chronic) [facility]* Diagnosis 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 (chronic) [facility]* Diagnosis 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 blood loss (chronic) [facility]* Diagnosis 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 blood loss (chronic) Iron malabsorption Other specified intestinal malabsorption [facility]* Diagnosis 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 Other specified intestinal malabsorption [facility]* Diagnosis 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 Other specified intestinal malabsorption [facility]* Diagnosis 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 Other specified intestinal malabsorption [facility]* Diagnosis 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 (chronic) Malignant neoplasm of lower-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, estrogen receptor positive (HCC) [facility] Diagnosis 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 Other specified intestinal malabsorption [facility]* Diagnosis Chest pain, unspecified type- Primary Paroxysmal atrial fibrillation (HCC) Atrial fibrillation Rheumatic mitral regurgitation Rheumatic mitral insufficiency Essential hypertension Unspecified essential hypertension Mixed hyperlipidemia Obstructive sleep apnea syndrome Obstructive sleep apnea (adult) (pediatric) Shortness of breath [facility]* Diagnosis Personal history of breast cancer- Primary Personal history of malignant neoplasm of breast Rib pain on right side Chest pain, unspecified [facility] Diagnosis Personal history of breast cancer- Primary Personal history of malignant neoplasm of breast [facility]* Diagnosis Personal history of breast cancer- Primary Personal history of malignant neoplasm of breast 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 blood loss (chronic) [facility] Diagnosis Paroxysmal atrial fibrillation (HCC)- Primary Atrial fibrillation Rheumatic mitral regurgitation Rheumatic mitral insufficiency Essential hypertension Unspecified essential hypertension Mixed hyperlipidemia Obstructive sleep apnea syndrome Obstructive sleep apnea (adult) (pediatric) Shortness of breath PAF (paroxysmal atrial fibrillation) (HCC) Atrial fibrillation SVT (supraventricular tachycardia) (HCC) Other specified cardiac dysrhythmias [facility] Diagnosis Encounter for care related to vascular access port- Primary Fitting and adjustment of vascular catheter [facility] Diagnosis Pain in right wrist- Primary Pain in joint, forearm Primary osteoarthritis of both knees Primary localized osteoarthrosis, lower leg CMC arthritis Unspecified arthropathy, hand [facility] Diagnosis Essential hypertension- Primary Unspecified essential hypertension Paroxysmal atrial fibrillation (HCC) Atrial fibrillation [facility] Diagnosis 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 (chronic) [facility] Diagnosis 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 (chronic) Personal history of breast cancer Personal history of malignant neoplasm of breast Malignant neoplasm of lower-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, estrogen receptor positive (HCC) [facility] Diagnosis Personal history of breast cancer Personal history of malignant neoplasm of breast Rib pain on right side Chest pain, unspecified [facility] Diagnosis Pain in right wrist Pain in joint, forearm [facility] Diagnosis Personal history of breast cancer- Primary Personal history of malignant neoplasm of breast 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 blood loss (chronic) documented in this encounter [facility] for referral (narrative)* Outpatient Procedure (Routine) - Closed Specialty Diagnoses / Procedures Referred By Contac t Referred To [facility] Diagnoses Paroxysmal atrial fibrillation (HCC) Rheumatic mitral regurgitation Essential hypertension Mixed hyperlipidemia Hyperglycemia PAF (paroxysmal atrial fibrillation) (HCC) Shortness of breath SVT (supraventricular tachycardia) (HCC) Procedures ECG COMPLETE ECG ROUTINE ECG W/LEAST 12 LDS W/I&R Cecilio Ibarra DO [address] [address] [facility] [facility] [address] [place] [id number] Referral ID Status Reason Start Date Expiration Date V isits Requested Visits Authorized [id number] Closed Auto-Generate d Referral 09/05/2021 09/05/2022 1 1 [facility] for referral (narrative)* Diagnostic Procedure Only (Routine) - Closed Specialty Diagnoses / Procedures Referred By Contac t Referred To Contact XR IMAGING Diagnoses Personal history of breast cancer Rib pain on right side Procedures XR RIBS 2V AP/OBL RIGHT RADEX RIBS UNILATERAL 2 VIEWS Angelic Arreola APRN.MIMEOGRAPHER [address] [place] [address] Xr Imaging Referral ID Status Reason Start Date Expiration Date V isits Requested Visits Authorized [id number] Closed Auto-Generate d Referral 06/05/2022 07/05/2023 1 1 [facility] for referral (narrative)* Diagnostic Procedure Only (Routine) - Closed Specialty Diagnoses / Procedures Referred By Contac t Referred To Contact XR IMAGING Diagnoses Pain in right wrist Procedures XR WRIST GENERAL 3V PA/LAT/OBL RIGHT RADEX WRIST COMPLETE MINIMUM 3 VIEWS Stella Casper PA-C [address] [place] [address] [place] [address] Referral ID Status Reason Start Date Expiration Date V isits Requested Visits Authorized [id number] Closed Auto-Generate d Referral 11/25/2022 12/25/2023 1 1 [facility] for referral (narrative)* Diagnostic Procedure Only (Routine) - Closed Specialty Diagnoses / Procedures Referred By Contac t Referred To Contact XR IMAGING Diagnoses Personal history of breast cancer Rib pain on right side Procedures XR RIBS 2V AP/OBL RIGHT RADEX RIBS UNILATERAL 2 VIEWS Angelic Arreola APRN.MIMEOGRAPHER [address] [place] [address] [place] [address] Referral ID Status Reason Start Date Expiration Date V isits Requested Visits Authorized [id number] Closed Auto-Generate d Referral 06/05/2022 07/05/2023 1 1 [facility] for referral (narrative)* Diagnostic Procedure Only (Routine) - Closed Specialty Diagnoses / Procedures Referred By Contac t Referred To Contact XR IMAGING Diagnoses Pain in right wrist Procedures XR WRIST GENERAL 3V PA/LAT/OBL RIGHT RADEX WRIST COMPLETE MINIMUM 3 VIEWS Stella Casper PA-C [address] [place] [address] [place] [address] Referral ID Status Reason Start Date Expiration Date V isits Requested Visits Authorized [id number] Closed Auto-Generate d Referral 11/25/2022 12/25/2023 1 1 [facility] for visit Narrative* Diagnostic Procedure Only (Routine) - Closed Specialty Diagnoses / Procedures Referred By Contac t Referred To Contact XR IMAGING Diagnoses Personal history of breast cancer Rib pain on right side Procedures XR RIBS 2V AP/OBL RIGHT RADEX RIBS UNILATERAL 2 VIEWS Angelic Arreola APRN.CNP [address] [place] [address] [place] [address] Referral ID Status Reason Start Date Expiration Date V isits Requested Visits Authorized [id number] Closed Auto-Generate d Referral 06/05/2022 07/05/2023 1 1 [facility] for visit Narrative* Diagnostic Procedure Only (Routine) - Closed Specialty Diagnoses / Procedures Referred By Contac t Referred To Contact XR IMAGING Diagnoses Pain in right wrist Procedures XR WRIST GENERAL 3V PA/LAT/OBL RIGHT RADEX WRIST COMPLETE MINIMUM 3 VIEWS Stella Casper, PA-C [address] [place] [address] [place] [address] Referral ID Status Reason Start Date Expiration Date V isits Requested Visits Authorized [id number] Closed Auto-Generate d Referral 11/25/2022 12/25/2023 1 1 [facility] Summary Purpose Family History No Family History Records FoundNo Family History Records FoundNo Family History Records FoundNo Family History Records Found Advance Directives No Advanced Directives Records FoundDocuments on File Type Date Recorded Patient Marketing Director Expl anation Advance Directive(s) 01/12/2021 1:54 PM Advance Directive(s) 01/09/2021 9:16 AM Advance Directive(s) 12/25/2020 1:29 PM Advance Directive(s) 09/28/2020 12:51 PM Advance Directive(s) 09/28/2020 12:50 PM Advance Directive(s) 09/06/2020 2:54 PM Advance Directive(s) 06/01/2020 2:37 PM Advance Directive(s) 11/15/2019 11:08 AM Advance Directive(s) 10/29/2019 12:14 PM Advance Directive(s) 09/03/2018 11:57 AM Advance Directive(s) 08/26/2018 9:14 AM Advance Directive(s) 01/03/2017 8:04 AM Advance Directive(s) 08/16/2015 10:11 AM Advance Directive(s) 12/28/2008 12:00 AM Documents on File Type Date Recorded Patient Marketing Director Expl anation Advance Directive(s) 07/06/2021 12:56 PM Advance Directive(s) 01/12/2021 1:54 PM Advance Directive(s) 01/09/2021 9:16 AM Advance Directive(s) 12/25/2020 1:29 PM Advance Directive(s) 09/28/2020 12:51 PM Advance Directive(s) 09/28/2020 12:50 PM Advance Directive(s) 09/06/2020 2:54 PM Advance Directive(s) 06/01/2020 2:37 PM Advance Directive(s) 11/15/2019 11:08 AM Advance Directive(s) 10/29/2019 12:14 PM Advance Directive(s) 09/03/2018 11:57 AM Advance Directive(s) 08/26/2018 9:14 AM Advance Directive(s) 01/03/2017 8:04 AM Advance Directive(s) 08/16/2015 10:11 AM Advance Directive(s) 12/28/2008 12:00 AM Latest Code Status on File Code Status Date Activated Date Inactivated Comments DNR-CCA 07/06/2021 6:27 PM DNR Order Discussed With: Patient Surrogate Decision Maker Surrogate Decision Maker Relationship: Health Ca re Power of Loan Workout Officer Agent Latest Code Status on File Code Status Date Activated Date Inactivated Comments DNR-CCA 07/06/2021 6:27 PM 2021 5:16 PM Documents on File Type Date Recorded Patient Marketing Director Expl anation Advance Directive(s) 08/12/2021 4:09 PM Advance Directive(s) 07/06/2021 12:56 PM Advance Directive(s) 01/12/2021 1:54 PM Advance Directive(s) 01/09/2021 9:16 AM Advance Directive(s) 12/25/2020 1:29 PM Advance Directive(s) 09/28/2020 12:51 PM Advance Directive(s) 09/28/2020 12:50 PM Advance Directive(s) 09/06/2020 2:54 PM Advance Directive(s) 06/01/2020 2:37 PM Advance Directive(s) 11/15/2019 11:08 AM Advance Directive(s) 10/29/2019 12:14 PM Advance Directive(s) 09/03/2018 11:57 AM Advance Directive(s) 08/26/2018 9:14 AM Advance Directive(s) 01/03/2017 8:04 AM Advance Directive(s) 08/16/2015 10:11 AM Advance Directive(s) 12/28/2008 12:00 AM Latest Code Status on File Code Status Date Activated Date Inactivated Comments DNR-CCA 08/12/2021 8:33 PM 08/13/2021 5:51 PM DNR Order Discussed With: Patient DNR-CCA 07/06/2021 6:27 PM 2021 5:16 PM Documents on File Type Date Recorded Patient Marketing Director Expl anation Advance Directive(s) 08/12/2021 4:09 PM Advance Directive(s) 07/06/2021 12:56 PM Advance Directive(s) 01/12/2021 1:54 PM Advance Directive(s) 01/09/2021 9:16 AM Advance Directive(s) 12/25/2020 1:29 PM Advance Directive(s) 09/28/2020 12:51 PM Advance Directive(s) 09/28/2020 12:50 PM Advance Directive(s) 09/06/2020 2:54 PM Advance Directive(s) 06/01/2020 2:37 PM Advance Directive(s) 11/15/2019 11:08 AM Advance Directive(s) 10/29/2019 12:14 PM Advance Directive(s) 09/03/2018 11:57 AM Advance Directive(s) 08/26/2018 9:14 AM Advance Directive(s) 01/03/2017 8:04 AM Advance Directive(s) 08/16/2015 10:11 AM Advance Directive(s) 12/28/2008 12:00 AM Latest Code Status on File Code Status Date Activated Date Inactivated Comments DNR-CCA 08/12/2021 8:33 PM 08/13/2021 5:51 PM DNR-CCA 07/06/2021 6:27 PM 2021 5:16 PM Documents on File Type Date Recorded Patient Marketing Director Expl anation Advance Directive(s) 09/28/2020 12:50 PM Advance Directive(s) 12/28/2008 Documents on File Type Date Recorded Patient Marketing Director Expl anation Advance Directive(s) 09/28/2020 12:50 PM Advance Directive(s) 12/28/2008 Latest Code Status on File Code Status Date Activated Date Inactivated Comments DNR-CCA 08/12/2021 8:33 PM 08/13/2021 5:51 PM Question Answer Comments DNR Order Discussed With: Patient Code Status History Code Status Date Activated Date Inactivated Comments DNR-CCA 07/06/2021 6:27 PM 2021 5:16 PM Question Answer Comments DNR Order Discussed With: Patient Surrogate Decision Maker Surrogate Decision Maker Relationship: Health Care Power of Loan Workout Officer Agent Latest Code Status on File Code Status Date Activated Date Inactivated Comments DNR-CCA 08/12/2021 8:33 PM 08/13/2021 5:51 PM Question Answer Comments DNR Order Discussed With: Patient Code Status History Code Status Date Activated Date Inactivated Comments DNR-CCA 07/06/2021 6:27 PM 2021 5:16 PM Question Answer Comments DNR Order Discussed With: Patient Surrogate Decision Maker Surrogate Decision Maker Relationship: Health Care Power of Loan Workout Officer Agent Health Concerns Infection Onset Date Last Indicated Resolved Time COVID-19 Rule-Out 05/22/2021 05/22/2021 05/23/2021 1:05 PM EST COVID-19 Rule-Out 07/06/2021 07/06/2021 07/06/2021 3:08 PM EDT COVID-19 Rule-Out 07/11/2021 07/11/2021 07/11/2021 2:23 PM EDT Infection Onset Date Last Indicated Resolved Time COVID-19 Rule-Out 07/06/2021 07/06/2021 07/06/2021 3:08 PM EDT COVID-19 Rule-Out 07/11/2021 07/11/2021 07/11/2021 2:23 PM EDT Infection Onset Date Last Indicated Resolved Time COVID-19 Rule-Out 07/11/2021 07/11/2021 07/11/2021 2:23 PM EDT Infection Onset Date Last Indicated Resolved Time COVID-19 Rule-Out 05/22/2021 05/22/2021 05/23/2021 1:05 PM EST COVID-19 Rule-Out 07/06/2021 07/06/2021 07/06/2021 3:08 PM EDT COVID-19 Rule-Out 07/11/2021 07/11/2021 07/11/2021 2:23 PM EDT COVID-19 Rule-Out 08/12/2021 08/12/2021 08/12/2021 5:05 PM EDT Infection Onset Date Last Indicated Resolved Time COVID-19 Rule-Out 08/12/2021 08/12/2021 08/12/2021 5:05 PM EDT Reason for Referral Specialty Diagnoses / Procedures Referred By Michael mcgowan Referred To Contact Diagnoses Recurrent UTI Mixed stress and urge urinary incontinence Procedures CONSULT TO URO GYNECOLOGY OFFICE/OUTPATIENT [facility] 60-74 MINUTES Mona Hebert MD [address] [place] [address] Referral ID Status Reason Start Date Expiration Date Visits Requested Visits Authorized [id number] Authorized PCP Requested Referral Auto-Generate d Referral 08/30/2021 11/28/2021 1 1 Specialty Diagnoses / Procedures Referred By Contac t Referred To Contact Infectious Diseases Diagnoses Recurrent UTI History of ESBL E. coli infection Procedures CONSULT TO INFECTIOUS DISEASES OFFICE/OUTPATIENT NEW HIGH MDM 60-74 MINUTES Basilia Hernández MD [address] [address] Referral ID Status Reason Start Date Expiration Date Visits Requested Visits Authorized [id number] Authorized PCP Requested Referral 09/26/2021 09/26/2022 1 1 Medications Administered Section Inactive Administered Medications - up to 3 most recent administrations Medication Order MAR Action Action Date Dose Rate Site betamethasone acetate-betamethasone sodium phosphate 6 mg injection (CELESTONE) 6 mg, Injection - FOR ORTHO USE ONLY, ONE TIME INJECTION, 1 dose, Starting on Fri01/21/22 at 1459, Until Fri01/21/22 at 1459 Given 01/21/2022 2:59 PM EST 6 mg Kn ee, Right lidocaine (PF) 10 mg/mL (1 %) 5 mL injection (XYLOCAINE) 5 mL, Injection - FOR ORTHO USE ONLY, ONE TIME INJECTION, 1 dose, Starting on Fri01/21/22 at 1459, Until Fri01/21/22 at 1459 Given 01/21/2022 2:59 PM EST 5 mL Kn ee, Right Inactive Administered Medications - up to 3 most recent administrations Medication Order MAR Action Action Date Dose Rate Site iron sucrose 200 mg in NaCl 0.9% 100ml (VENOFER) 200 mg, INTRAVENOUS, at 400 mL/hr, Administer over 15 Minutes, ONCE, 1 dose, On Fri04/08/22 at 1130, Please conduct a 30 minute post dose observation. New Bag/Syringe/Bottle 04/08/2022 11:14 AM EST 200 mg 400 mL/hr Inactive Administered Medications - up to 3 most recent administrations Medication Order MAR Action Action Date Dose Rate Site iron sucrose 200 mg in NaCl 0.9% 100ml (VENOFER) 200 mg, INTRAVENOUS, at 400 mL/hr, Administer over 15 Minutes, ONCE, 1 dose, On Fri04/10/22 at 1100, Please conduct a 30 minute post dose observation. New Bag/Syringe/Bottle 04/10/2022 11:00 AM EST 200 mg 400 mL/hr Inactive Administered Medications - up to 3 most recent administrations Medication Order MAR Action Action Date Dose Rate Site iron sucrose 200 mg in NaCl 0.9% 100ml (VENOFER) 200 mg, INTRAVENOUS, at 400 mL/hr, Administer over 15 Minutes, ONCE, 1 dose, On Fri04/12/22 at 1400, Please conduct a 30 minute post dose observation. New Bag/Syringe/Bottle 04/12/2022 2:02 PM EST 200 mg 400 mL/hr Inactive Administered Medications - up to 3 most recent administrations Medication Order MAR Action Action Date Dose Rate Site iron sucrose 200 mg in NaCl 0.9% 100ml (VENOFER) 200 mg, INTRAVENOUS, at 400 mL/hr, Administer over 15 Minutes, ONCE, 1 dose, On Fri04/15/22 at 1500, Please conduct a 30 minute post dose observation. New Bag/Syringe/Bottle 04/15/2022 2:50 PM EST 200 mg 400 mL/hr Inactive Administered Medications - up to 3 most recent administrations Medication Order MAR Action Action Date Dose Rate Site iron sucrose 200 mg in NaCl 0.9% 100ml (VENOFER) 200 mg, INTRAVENOUS, at 400 mL/hr, Administer over 15 Minutes, ONCE, 1 dose, On Fri04/17/22 at 1000, Please conduct a 30 minute post dose observation. New Bag/Syringe/Bottle 04/17/2022 10:09 AM EST 200 mg 400 mL/hr Inactive Administered Medications - up to 3 most recent administrations Medication Order MAR Action Action Date Dose Rate Site betamethasone acetate-betamethasone sodium phosphate 6 mg injection (CELESTONE) 6 mg, Injection - FOR ORTHO USE ONLY, ONE TIME INJECTION, 1 dose, Starting on Fri11/25/22 at 1406, Until Fri11/25/22 at 1406 Given 11/25/2022 2:06 PM EDT 6 mg Kn ee, Left betamethasone acetate-betamethasone sodium phosphate 6 mg injection (CELESTONE) 6 mg, Injection - FOR ORTHO USE ONLY, ONE TIME INJECTION, 1 dose, Starting on Fri11/25/22 at 1406, Until Fri11/25/22 at 1406 Given 11/25/2022 2:06 PM EDT 6 mg Kn ee, Right lidocaine (PF) 10 mg/mL (1 %) 5 mL injection (XYLOCAINE) 5 mL, Injection - FOR ORTHO USE ONLY, ONE TIME INJECTION, 1 dose, Starting on Fri11/25/22 at 1406, Until Fri11/25/22 at 1406 Given 11/25/2022 2:06 PM EDT 5 mL Kn ee, Left lidocaine (PF) 10 mg/mL (1 %) 5 mL injection (XYLOCAINE) 5 mL, Injection - FOR ORTHO USE ONLY, ONE TIME INJECTION, 1 dose, Starting on Fri11/25/22 at 1406, Until Fri11/25/22 at 1406 Given 11/25/2022 2:06 PM EDT 5 mL Kn ee, Right Additional Source Comments INFORMATION SOURCE (unrecogn ized section and content) DATE CREATED AUTHOR AUTHOR'S ORGANIZ ATION 08/28/2021 [facility] DATE CREATED AUTHOR AUTHOR'S ORGANIZ ATION 01/07/2022 [facility] DATE CREATED AUTHOR AUTHOR'S ORGANIZ ATION 03/26/2023 [facility] Source Comments (unrecognize d section and content) In the event this informatio n is protected by the Federal Confidentiality of Alcohol and Drug Abuse Patient Records regulations: The Federal rules restrict any use of the information to criminally investigate or prosecute any alcohol or drug abuse patient.[facility] the event this information is protected by the Federal Confidentiality of Alcohol and Drug Abuse Patient Records regulations: The Federal rules restrict any use of the information to criminally investigate or prosecute any alcohol or drug abuse patient.[facility] Hospital[facility] the event this information is protected by the Federal Confidentiality of Alcohol and Drug Abuse Patient Records regulations: The Federal rules restrict any use of the information to criminally investigate or prosecute any alcohol or drug abuse patient.[facility] the event this information is protected by the Federal Confidentiality of Alcohol and Drug Abuse Patient Records regulations: The Federal rules restrict any use of the information to criminally investigate or prosecute any alcohol or drug abuse patient.[facility] Hospital[facility] the event this information is protected by the Federal Confidentiality of Alcohol and Drug Abuse Patient Records regulations: The Federal rules restrict any use of the information to criminally investigate or prosecute any alcohol or drug abuse patient.[facility] Hospital[facility] the event this information is protected by the Federal Confidentiality of Alcohol and Drug Abuse Patient Records regulations: The Federal rules restrict any use of the information to criminally investigate or prosecute any alcohol or drug abuse patient.[facility] Hospital[facility] the event this information is protected by the Federal Confidentiality of Alcohol and Drug Abuse Patient Records regulations: The Federal rules restrict any use of the information to criminally investigate or prosecute any alcohol or drug abuse patient.[facility] HospitalIn the event this information is protected by the Federal Confidentiality of Alcohol and Drug Abuse Patient Records regulations: The Federal rules restrict any use of the information to criminally investigate or prosecute any alcohol or drug abuse patient.[facility] Hospital[facility] the event this information is protected by the Federal Confidentiality of Alcohol and Drug Abuse Patient Records regulations: The Federal rules restrict any use of the information to criminally investigate or prosecute any alcohol or drug abuse patient.[facility] HospitalIn the event this information is protected by the Federal Confidentiality of Alcohol and Drug Abuse Patient Records regulations: The Federal rules restrict any use of the information to criminally investigate or prosecute any alcohol or drug abuse patient.[facility] HospitalIn the event this information is protected by the Federal Confidentiality of Alcohol and Drug Abuse Patient Records regulations: The Federal rules restrict any use of the information to criminally investigate or prosecute any alcohol or drug abuse patient.[facility] HospitalIn the event this information is protected by the Federal Confidentiality of Alcohol and Drug Abuse Patient Records regulations: The Federal rules restrict any use of the information to criminally investigate or prosecute any alcohol or drug abuse patient.[facility] HospitalIn the event this information is protected by the Federal Confidentiality of Alcohol and Drug Abuse Patient Records regulations: The Federal rules restrict any use of the information to criminally investigate or prosecute any alcohol or drug abuse patient.[facility] HospitalIn the event this information is protected by the Federal Confidentiality of Alcohol and Drug Abuse Patient Records regulations: The Federal rules restrict any use of the information to criminally investigate or prosecute any alcohol or drug abuse patient.[facility] HospitalIn the event this information is protected by the Federal Confidentiality of Alcohol and Drug Abuse Patient Records regulations: The Federal rules restrict any use of the information to criminally investigate or prosecute any alcohol or drug abuse patient.[facility] HospitalIn the event this information is protected by the Federal Confidentiality of Alcohol and Drug Abuse Patient Records regulations: The Federal rules restrict any use of the information to criminally investigate or prosecute any alcohol or drug abuse patient.[facility] HospitalIn the event this information is protected by the Federal Confidentiality of Alcohol and Drug Abuse Patient Records regulations: The Federal rules restrict any use of the information to criminally investigate or prosecute any alcohol or drug abuse patient.[facility] HospitalIn the event this information is protected by the Federal Confidentiality of Alcohol and Drug Abuse Patient Records regulations: The Federal rules restrict any use of the information to criminally investigate or prosecute any alcohol or drug abuse patient.[facility] HospitalIn the event this information is protected by the Federal Confidentiality of Alcohol and Drug Abuse Patient Records regulations: The Federal rules restrict any use of the information to criminally investigate or prosecute any alcohol or drug abuse patient.[facility] HospitalIn the event this information is protected by the Federal Confidentiality of Alcohol and Drug Abuse Patient Records regulations: The Federal rules restrict any use of the information to criminally investigate or prosecute any alcohol or drug abuse patient.[facility] HospitalIn the event this information is protected by the Federal Confidentiality of Alcohol and Drug Abuse Patient Records regulations: The Federal rules restrict any use of the information to criminally investigate or prosecute any alcohol or drug abuse patient.[facility] HospitalIn the event this information is protected by the Federal Confidentiality of Alcohol and Drug Abuse Patient Records regulations: The Federal rules restrict any use of the information to criminally investigate or prosecute any alcohol or drug abuse patient.[facility] HospitalIn the event this information is protected by the Federal Confidentiality of Alcohol and Drug Abuse Patient Records regulations: The Federal rules restrict any use of the information to criminally investigate or prosecute any alcohol or drug abuse patient.[facility] HospitalIn the event this information is protected by the Federal Confidentiality of Alcohol and Drug Abuse Patient Records regulations: The Federal rules restrict any use of the information to criminally investigate or prosecute any alcohol or drug abuse patient.[facility] HospitalIn the event this information is protected by the Federal Confidentiality of Alcohol and Drug Abuse Patient Records regulations: The Federal rules restrict any use of the information to criminally investigate or prosecute any alcohol or drug abuse patient.[facility] HospitalIn the event this information is protected by the Federal Confidentiality of Alcohol and Drug Abuse Patient Records regulations: The Federal rules restrict any use of the information to criminally investigate or prosecute any alcohol or drug abuse patient.[facility] HospitalIn the event this information is protected by the Federal Confidentiality of Alcohol and Drug Abuse Patient Records regulations: The Federal rules restrict any use of the information to criminally investigate or prosecute any alcohol or drug abuse patient.[facility] HospitalIn the event this information is protected by the Federal Confidentiality of Alcohol and Drug Abuse Patient Records regulations: The Federal rules restrict any use of the information to criminally investigate or prosecute any alcohol or drug abuse patient.[facility] HospitalIn the event this information is protected by the Federal Confidentiality of Alcohol and Drug Abuse Patient Records regulations: The Federal rules restrict any use of the information to criminally investigate or prosecute any alcohol or drug abuse patient.[facility] HospitalIn the event this information is protected by the Federal Confidentiality of Alcohol and Drug Abuse Patient Records regulations: The Federal rules restrict any use of the information to criminally investigate or prosecute any alcohol or drug abuse patient.[facility] HospitalIn the event this information is protected by the Federal Confidentiality of Alcohol and Drug Abuse Patient Records regulations: The Federal rules restrict any use of the information to criminally investigate or prosecute any alcohol or drug abuse patient.[facility] HospitalIn the event this information is protected by the Federal Confidentiality of Alcohol and Drug Abuse Patient Records regulations: The Federal rules restrict any use of the information to criminally investigate or prosecute any alcohol or drug abuse patient.[facility] HospitalIn the event this information is protected by the Federal Confidentiality of Alcohol and Drug Abuse Patient Records regulations: The Federal rules restrict any use of the information to criminally investigate or prosecute any alcohol or drug abuse patient.[facility] [facility] HospitalIn the event this information is protected by the Federal Confidentiality of Alcohol and Drug Abuse Patient Records regulations: The Federal rules restrict any use of the information to criminally investigate or prosecute any alcohol or drug abuse patient.[facility] HospitalIn the event this information is protected by the Federal Confidentiality of Alcohol and Drug Abuse Patient Records regulations: The Federal rules restrict any use of the information to criminally investigate or prosecute any alcohol or drug abuse patient.[facility] HospitalIn the event this information is protected by the Federal Confidentiality of Alcohol and Drug Abuse Patient Records regulations: The Federal rules restrict any use of the information to criminally investigate or prosecute any alcohol or drug abuse patient.[facility] HospitalIn the event this information is protected by the Federal Confidentiality of Alcohol and Drug Abuse Patient Records regulations: The Federal rules restrict any use of the information to criminally investigate or prosecute any alcohol or drug abuse patient.[facility] HospitalIn the event this information is protected by the Federal Confidentiality of Alcohol and Drug Abuse Patient Records regulations: The Federal rules restrict any use of the information to criminally investigate or prosecute any alcohol or drug abuse patient.[facility] HospitalIn the event this information is protected by the Federal Confidentiality of Alcohol and Drug Abuse Patient Records regulations: The Federal rules restrict any use of the information to criminally investigate or prosecute any alcohol or drug abuse patient.[facility] HospitalIn the event this information is protected by the Federal Confidentiality of Alcohol and Drug Abuse Patient Records regulations: The Federal rules restrict any use of the information to criminally investigate or prosecute any alcohol or drug abuse patient.[facility] HospitalIn the event this information is protected by the Federal Confidentiality of Alcohol and Drug Abuse Patient Records regulations: The Federal rules restrict any use of the information to criminally investigate or prosecute any alcohol or drug abuse patient.[facility] HospitalIn the event this information is protected by the Federal Confidentiality of Alcohol and Drug Abuse Patient Records regulations: The Federal rules restrict any use of the information to criminally investigate or prosecute any alcohol or drug abuse patient.[facility] HospitalIn the event this information is protected by the Federal Confidentiality of Alcohol and Drug Abuse Patient Records regulations: The Federal rules restrict any use of the information to criminally investigate or prosecute any alcohol or drug abuse patient.[facility] HospitalIn the event this information is protected by the Federal Confidentiality of Alcohol and Drug Abuse Patient Records regulations: The Federal rules restrict any use of the information to criminally investigate or prosecute any alcohol or drug abuse patient.[facility] HospitalIn the event this information is protected by the Federal Confidentiality of Alcohol and Drug Abuse Patient Records regulations: The Federal rules restrict any use of the information to criminally investigate or prosecute any alcohol or drug abuse patient.[facility] HospitalIn the event this information is protected by the Federal Confidentiality of Alcohol and Drug Abuse Patient Records regulations: The Federal rules restrict any use of the information to criminally investigate or prosecute any alcohol or drug abuse patient.[facility] HospitalIn the event this information is protected by the Federal Confidentiality of Alcohol and Drug Abuse Patient Records regulations: The Federal rules restrict any use of the information to criminally investigate or prosecute any alcohol or drug abuse patient.[facility] HospitalIn the event this information is protected by the Federal Confidentiality of Alcohol and Drug Abuse Patient Records regulations: The Federal rules restrict any use of the information to criminally investigate or prosecute any alcohol or drug abuse patient.[facility] HospitalIn the event this information is protected by the Federal Confidentiality of Alcohol and Drug Abuse Patient Records regulations: The Federal rules restrict any use of the information to criminally investigate or prosecute any alcohol or drug abuse patient.[facility] HospitalIn the event this information is protected by the Federal Confidentiality of Alcohol and Drug Abuse Patient Records regulations: The Federal rules restrict any use of the information to criminally investigate or prosecute any alcohol or drug abuse patient.[facility] HospitalIn the event this information is protected by the Federal Confidentiality of Alcohol and Drug Abuse Patient Records regulations: The Federal rules restrict any use of the information to criminally investigate or prosecute any alcohol or drug abuse patient.[facility] HospitalIn the event this information is protected by the Federal Confidentiality of Alcohol and Drug Abuse Patient Records regulations: The Federal rules restrict any use of the information to criminally investigate or prosecute any alcohol or drug abuse patient.[facility] HospitalIn the event this information is protected by the Federal Confidentiality of Alcohol and Drug Abuse Patient Records regulations: The Federal rules restrict any use of the information to criminally investigate or prosecute any alcohol or drug abuse patient.[facility] HospitalIn the event this information is protected by the Federal Confidentiality of Alcohol and Drug Abuse Patient Records regulations: The Federal rules restrict any use of the information to criminally investigate or prosecute any alcohol or drug abuse patient.[facility] HospitalIn the event this information is protected by the Federal Confidentiality of Alcohol and Drug Abuse Patient Records regulations: The Federal rules restrict any use of the information to criminally investigate or prosecute any alcohol or drug abuse patient.[facility] HospitalIn the event this information is protected by the Federal Confidentiality of Alcohol and Drug Abuse Patient Records regulations: The Federal rules restrict any use of the information to criminally investigate or prosecute any alcohol or drug abuse patient.[facility] HospitalIn the event this information is protected by the Federal Confidentiality of Alcohol and Drug Abuse Patient Records regulations: The Federal rules restrict any use of the information to criminally investigate or prosecute any alcohol or drug abuse patient.[facility] HospitalIn the event this information is protected by the Federal Confidentiality of Alcohol and Drug Abuse Patient Records regulations: The Federal rules restrict any use of the information to criminally investigate or prosecute any alcohol or drug abuse patient.[facility] HospitalIn the event this information is protected by the Federal Confidentiality of Alcohol and Drug Abuse Patient Records regulations: The Federal rules restrict any use of the information to criminally investigate or prosecute any alcohol or drug abuse patient.[facility] HospitalIn the event this information is protected by the Federal Confidentiality of Alcohol and Drug Abuse Patient Records regulations: The Federal rules restrict any use of the information to criminally investigate or prosecute any alcohol or drug abuse patient.[facility] HospitalIn the event this information is protected by the Federal Confidentiality of Alcohol and Drug Abuse Patient Records regulations: The Federal rules restrict any use of the information to criminally investigate or prosecute any alcohol or drug abuse patient.[facility] HospitalIn the event this information is protected by the Federal Confidentiality of Alcohol and Drug Abuse Patient Records regulations: The Federal rules restrict any use of the information to criminally investigate or prosecute any alcohol or drug abuse patient.[facility] HospitalIn the event this information is protected by the Federal Confidentiality of Alcohol and Drug Abuse Patient Records regulations: The Federal rules restrict any use of the information to criminally investigate or prosecute any alcohol or drug abuse patient.[facility] HospitalIn the event this information is protected by the Federal Confidentiality of Alcohol and Drug Abuse Patient Records regulations: The Federal rules restrict any use of the information to criminally investigate or prosecute any alcohol or drug abuse patient.[facility] HospitalIn the event this information is protected by the Federal Confidentiality of Alcohol and Drug Abuse Patient Records regulations: The Federal rules restrict any use of the information to criminally investigate or prosecute any alcohol or drug abuse patient.[facility] HospitalIn the event this information is protected by the Federal Confidentiality of Alcohol and Drug Abuse Patient Records regulations: The Federal rules restrict any use of the information to criminally investigate or prosecute any alcohol or drug abuse patient.[facility] HospitalIn the event this information is protected by the Federal Confidentiality of Alcohol and Drug Abuse Patient Records regulations: The Federal rules restrict any use of the information to criminally investigate or prosecute any alcohol or drug abuse patient.[facility] HospitalIn the event this information is protected by the Federal Confidentiality of Alcohol and Drug Abuse Patient Records regulations: The Federal rules restrict any use of the information to criminally investigate or prosecute any alcohol or drug abuse patient.[facility] HospitalIn the event this information is protected by the Federal Confidentiality of Alcohol and Drug Abuse Patient Records regulations: The Federal rules restrict any use of the information to criminally investigate or prosecute any alcohol or drug abuse patient.[facility] HospitalIn the event this information is protected by the Federal Confidentiality of Alcohol and Drug Abuse Patient Records regulations: The Federal rules restrict any use of the information to criminally investigate or prosecute any alcohol or drug abuse patient.[facility] HospitalIn the event this information is protected by the Federal Confidentiality of Alcohol and Drug Abuse Patient Records regulations: The Federal rules restrict any use of the information to criminally investigate or prosecute any alcohol or drug abuse patient.[facility] HospitalIn the event this information is protected by the Federal Confidentiality of Alcohol and Drug Abuse Patient Records regulations: The Federal rules restrict any use of the information to criminally investigate or prosecute any alcohol or drug abuse patient.[facility] HospitalIn the event this information is protected by the Federal Confidentiality of Alcohol and Drug Abuse Patient Records regulations: The Federal rules restrict any use of the information to criminally investigate or prosecute any alcohol or drug abuse patient.[facility] HospitalIn the event this information is protected by the Federal Confidentiality of Alcohol and Drug Abuse Patient Records regulations: The Federal rules restrict any use of the information to criminally investigate or prosecute any alcohol or drug abuse patient.[facility] HospitalIn the event this information is protected by the Federal Confidentiality of Alcohol and Drug Abuse Patient Records regulations: The Federal rules restrict any use of the information to criminally investigate or prosecute any alcohol or drug abuse patient.[facility] HospitalIn the event this information is protected by the Federal Confidentiality of Alcohol and Drug Abuse Patient Records regulations: The Federal rules restrict any use of the information to criminally investigate or prosecute any alcohol or drug abuse patient.[facility] HospitalIn the event this information is protected by the Federal Confidentiality of Alcohol and Drug Abuse Patient Records regulations: The Federal rules restrict any use of the information to criminally investigate or prosecute any alcohol or drug abuse patient.[facility] HospitalIn the event this information is protected by the Federal Confidentiality of Alcohol and Drug Abuse Patient Records regulations: The Federal rules restrict any use of the information to criminally investigate or prosecute any alcohol or drug abuse patient.[facility] HospitalIn the event this information is protected by the Federal Confidentiality of Alcohol and Drug Abuse Patient Records regulations: The Federal rules restrict any use of the information to criminally investigate or prosecute any alcohol or drug abuse patient.[facility] HospitalIn the event this information is protected by the Federal Confidentiality of Alcohol and Drug Abuse Patient Records regulations: The Federal rules restrict any use of the information to criminally investigate or prosecute any alcohol or drug abuse patient.[facility] HospitalIn the event this information is protected by the Federal Confidentiality of Alcohol and Drug Abuse Patient Records regulations: The Federal rules restrict any use of the information to criminally investigate or prosecute any alcohol or drug abuse patient.[facility] HospitalIn the event this information is protected by the Federal Confidentiality of Alcohol and Drug Abuse Patient Records regulations: The Federal rules restrict any use of the information to criminally investigate or prosecute any alcohol or drug abuse patient.[facility] HospitalIn the event this information is protected by the Federal Confidentiality of Alcohol and Drug Abuse Patient Records regulations: The Federal rules restrict any use of the information to criminally investigate or prosecute any alcohol or drug abuse patient.[facility] HospitalIn the event this information is protected by the Federal Confidentiality of Alcohol and Drug Abuse Patient Records regulations: The Federal rules restrict any use of the information to criminally investigate or prosecute any alcohol or drug abuse patient.[facility] HospitalIn the event this information is protected by the Federal Confidentiality of Alcohol and Drug Abuse Patient Records regulations: The Federal rules restrict any use of the information to criminally investigate or prosecute any alcohol or drug abuse patient.[facility] HospitalIn the event this information is protected by the Federal Confidentiality of Alcohol and Drug Abuse Patient Records regulations: The Federal rules restrict any use of the information to criminally investigate or prosecute any alcohol or drug abuse patient.[facility] HospitalIn the event this information is protected by the Federal Confidentiality of Alcohol and Drug Abuse Patient Records regulations: The Federal rules restrict any use of the information to criminally investigate or prosecute any alcohol or drug abuse patient.[facility] HospitalIn the event this information is protected by the Federal Confidentiality of Alcohol and Drug Abuse Patient Records regulations: The Federal rules restrict any use of the information to criminally investigate or prosecute any alcohol or drug abuse patient.[facility] HospitalIn the event this information is protected by the Federal Confidentiality of Alcohol and Drug Abuse Patient Records regulations: The Federal rules restrict any use of the information to criminally investigate or prosecute any alcohol or drug abuse patient.[facility] HospitalIn the event this information is protected by the Federal Confidentiality of Alcohol and Drug Abuse Patient Records regulations: The Federal rules restrict any use of the information to criminally investigate or prosecute any alcohol or drug abuse patient.[facility] HospitalIn the event this information is protected by the Federal Confidentiality of Alcohol and Drug Abuse Patient Records regulations: The Federal rules restrict any use of the information to criminally investigate or prosecute any alcohol or drug abuse patient.[facility] HospitalIn the event this information is protected by the Federal Confidentiality of Alcohol and Drug Abuse Patient Records regulations: The Federal rules restrict any use of the information to criminally investigate or prosecute any alcohol or drug abuse patient.[facility] HospitalIn the event this information is protected by the Federal Confidentiality of Alcohol and Drug Abuse Patient Records regulations: The Federal rules restrict any use of the information to criminally investigate or prosecute any alcohol or drug abuse patient.[facility] HospitalIn the event this information is protected by the Federal Confidentiality of Alcohol and Drug Abuse Patient Records regulations: The Federal rules restrict any use of the information to criminally investigate or prosecute any alcohol or drug abuse patient.[facility] HospitalIn the event this information is protected by the Federal Confidentiality of Alcohol and Drug Abuse Patient Records regulations: The Federal rules restrict any use of the information to criminally investigate or prosecute any alcohol or drug abuse patient.[facility] HospitalIn the event this information is protected by the Federal Confidentiality of Alcohol and Drug Abuse Patient Records regulations: The Federal rules restrict any use of the information to criminally investigate or prosecute any alcohol or drug abuse patient.[facility] Reason for Visit (unrecogniz ed section and content) Reason Comments Results urine culture Reason Comments Anticoagulation Telephone Fu INR Home Te st Result Reason Comments Dysuria Reason Comments Pain back & legs / Pt upd ate Reason Comments Follow Up abdominal pain Reason Comments Results Reason Comments Medication Question Reason Comments Patient Question gallbladder ER [facility] Reason Comments Anticoagulation Telephone Fu Reason Comments Patient Update Reason Comments [place] Reason Comments Appointment Reason Comments Agree to follow Orders Reason Comments Anticoagulation Telephone Fu Home INR re sult Reason Comments Recheck Hosp follow up, Reason Comments UTI Reason Comments Schedule Surgery Reason Comments Discussion Reason Comments Post Op Reason Comments Cardiology Follow Up fatigue other issue s are happening Reason Comments Anticoagulation Reason Comments Recurrent UTI Specialty Diagnoses / Procedures Referred By Contac t Referred To Contact Diagnoses Recurrent UTI Mixed stress and urge urinary incontinence Procedures CONSULT TO URO GYNECOLOGY OFFICE/OUTPATIENT [facility] 60-74 MINUTES Mona Hebert MD [address] [place] [address] Referral ID Status Reason Start Date Expiration Date V isits Requested Visits Authorized [id number] Closed PCP Requested Referral Auto-Generated Referral 08/30/2021 11/28/2021 1 1 Reason Comments Anticoagulation Telephone Fu home INR Reason Comments Consult Specialty Diagnoses / Procedures Referred By Contac t Referred To Contact Infectious Diseases Diagnoses Recurrent UTI History of ESBL E. coli infection Procedures CONSULT TO INFECTIOUS DISEASES OFFICE/OUTPATIENT [facility] 60-74 MINUTES Basilia Hernández MD [address] [facility] [address] [place] [address] Referral ID Status Reason Start Date Expiration Date V isits Requested Visits Authorized [id number] Closed PCP Requested Referral 09/26/2021 09/26/2022 1 1 Reason Onset Date Comments Anticoagulation Telephone Fu 10/15/2021 Agustín e INR Result Reason Comments High INR/lab order Reason Comments Release Of Medical Records Reason Comments Patient Question Reason Comments PAC TRANSFER OF CARE Reason Comments Blood Draw (CVAD) Reason Onset Date Comments Product Safety Administrator - Other 12/25/2021 Reason Comments Recurrent UTI Reason Comments Established Patient Last seen 11/09/20 S/P Left ring trigger finger release (09/14 Reason Comments Returning Patient's Call Reason Comments Orders Appointment Reason Comments Results CBC Reason Comments Non-Chemotherapy Treatment Specialty Diagnoses / Procedures Referred By Michael mcgowan Referred To Contact Diagnoses 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 Sal Bonilla, DO [address] [facility] [place] [address] [facility] [address] [place] [address] Referral ID Status Reason Start Date Expiration Date V isits Requested Visits Authorized [id number] Authorized 03/24/2022 06/22/2022 99 99 Reason Comments Product Safety Administrator - Other Symptoms Reason Comments Follow Up 7 Month Reason Comments Established Patient Reason Comments Follow Up Room 10 Occasionally feels heart flutter- lasting a couple secondsLOV Amalfitao 09/05/21 PAFLOV Torres 04/09/22 CP, PAFEKG 09/05/21Stress 12/21/20Echo 09/07/20 Reason Comments Results CBC 09/19/22 - 2 week starting Eliquis Reason Comments Appointment Cancelled Reason Comments Established Patient Established Patient 6 months post visit OA bilateral knees with injection given.Wants injection today. Reason Comments Follow Up [place] denies karly parrish concernsDaughter, Eloisa, concerned about Lasix managementRequires written prescriptions Reason Comments Last Office Visit Note Care Teams (unrecognized sec tion and content) Lock Corner Machine Operator Relationship Specialty Start Date End Date Ariel Sainz MD [address] [place] [address] PCP - General Internal Medicine 01/15/16 13, Pharmacist [id number] [place] [address] Pharmacist Pharmacy 08/22/20 Lock Corner Machine Operator Relationship Specialty Start Date End Date Ariel Sainz MD [address] [facility] [place] [address] PCP - General Internal Medicine 01/15/16 13, Pharmacist [id number] [place] [address] Pharmacist Pharmacy 08/22/20 Lock Corner Machine Operator Relationship Specialty Start Date End Date Ariel Sainz MD [address] [facility] [place] [address] PCP - General Internal Medicine 01/15/16 13, Pharmacist [id number] [place] [address] Pharmacist Pharmacy 08/22/20 Lock Corner Machine Operator Relationship Specialty Start Date End Date Ariel Sainz MD [address] [facility] [place] [address] PCP - General Internal Medicine 01/15/16 13, Pharmacist [id number] [place] [address] Pharmacist Pharmacy 08/22/20 Lock Corner Machine Operator Relationship Specialty Start Date End Date Ariel Sainz MD [address] [facility] [place] [address] PCP - General Internal Medicine 01/15/16 13, Pharmacist [id number] [place] [address] Pharmacist Pharmacy 08/22/20 Lock Corner Machine Operator Relationship Specialty Start Date End Date Ariel Sainz MD [address] [facility] [place] [address] PCP - General Internal Medicine 01/15/16 13, Pharmacist [phone] [place] [address] Pharmacist Pharmacy 08/22/20 Lock Corner Machine Operator Relationship Specialty Start Date End Date Ariel Sainz MD [address] [facility] [place] [address] PCP - General Internal Medicine 01/15/16 13, Pharmacist [id number] [place] [address] Pharmacist Pharmacy 08/22/20 Lock Corner Machine Operator Relationship Specialty Start Date End Date Ariel Sainz MD [address] [facility] [place] [address] PCP - General Internal Medicine 01/15/16 13, [address] [id number] [place] [address] Pharmacist Pharmacy 08/22/20 [employer] Machine Operator Relationship Specialty Start Date End Date Ariel Sainz MD [address] [facility] [place] [address] PCP - General Internal Medicine 01/15/16 13, Pharmacist [phone] [place] [address] Pharmacist Pharmacy 08/22/20 [employer] Corner Machine Operator Relationship Specialty Start Date End Date Ariel Sainz MD [address] [place] [address] PCP - General Internal Medicine 01/15/16 13, Pharmacist [phone] [place] [address], [place] [address] Pharmacist Pharmacy 08/22/20 Lock Corner Machine Operator Relationship Specialty Start Date End Date Ariel Sainz MD [address] [facility] [place] [address] PCP - General Internal Medicine 01/15/16 13, Pharmacist [phone] [place] [address] Pharmacist Pharmacy 08/22/20 Lock Corner Machine Operator Relationship Specialty Start Date End Date Ariel Sainz MD [address] [facility] [place] [address] PCP - General Internal Medicine 01/15/16 13, Pharmacist [phone] [place] [address] Pharmacist Pharmacy 08/22/20 Lock Corner Machine Operator Relationship Specialty Start Date End Date Ariel Sainz MD [address] [facility] [place] [address] PCP - General Internal Medicine 01/15/16 13, Pharmacist [phone] [place] [address] Pharmacist Pharmacy 08/22/20 Lock Corner Machine Operator Relationship Specialty Start Date End Date Ariel Sainz MD [address] [facility] [place] [address] PCP - General Internal Medicine 01/15/16 13, Pharmacist [phone] [place] [address] Pharmacist Pharmacy 08/22/20 Lock Corner Machine Operator Relationship Specialty Start Date End Date Ariel Sainz MD [address] [facility] [place] [address] PCP - General Internal Medicine 01/15/16 13, Pharmacist [phone] [place] [address] Pharmacist Pharmacy 08/22/20 Lock Corner Machine Operator Relationship Specialty Start Date End Date Ariel Sainz MD [address] [facility] [place] [address] PCP - General Internal Medicine 01/15/16 13, Pharmacist [phone] [place] [address] Pharmacist Pharmacy 08/22/20 Lock Corner Machine Operator Relationship Specialty Start Date End Date Ariel Sainz MD [address] [facility] [place] [address] PCP - General Internal Medicine 01/15/16 13, Pharmacist [phone] [place] [address] Pharmacist Pharmacy 08/22/20 Lock Corner Machine Operator Relationship Specialty Start Date End Date Ariel Sainz MD [address] [facility] [place] [address] PCP - General Internal Medicine 01/15/16 13, Pharmacist [phone] [place] [address] Pharmacist Pharmacy 08/22/20 Lock Corner Machine Operator Relationship Specialty Start Date End Date Ariel Sainz MD [address] [facility] [place] [address] PCP - General Internal Medicine 01/15/16 13, Pharmacist [phone] [place] [address] Pharmacist Pharmacy 08/22/20 Lock Corner Machine Operator Relationship Specialty Start Date End Date Ariel Sainz MD [address] [facility] [place] [address] PCP - General Internal Medicine 01/15/16 13, Pharmacist [phone] [place] [address] Pharmacist Pharmacy 08/22/20 Lock Corner Machine Operator Relationship Specialty Start Date End Date Ariel Sainz MD [address] [facility] [place] [address] PCP - General Internal Medicine 01/15/16 13, Pharmacist [phone] [place] [address] Pharmacist Pharmacy 08/22/20 Lock Corner Machine Operator Relationship Specialty Start Date End Date Ariel Sainz MD [address] [place] [address] PCP - General Internal Medicine 01/15/16 13, Pharmacist [phone] [place] [address] Pharmacist Pharmacy 08/22/20 Lock Corner Machine Operator Relationship Specialty Start Date End Date Ariel Sainz MD [address] [facility] [place] [address] PCP - General Internal Medicine 01/15/16 13, Pharmacist [phone] [place] [address] Pharmacist Pharmacy 08/22/20 Lock Corner Machine Operator Relationship Specialty Start Date End Date Ariel Sainz MD [address] [facility] [place] [address] PCP - General Internal Medicine 01/15/16 13, Pharmacist [address] [place] [address] Pharmacist Pharmacy 08/22/20 Lock Corner Machine Operator Relationship Specialty Start Date End Date rAiel Sainz MD [address] [facility] [place] [address] PCP - General Internal Medicine 01/15/16 13, Pharmacist [phone] [place] [address] Pharmacist Pharmacy 08/22/20 Lock Corner Machine Operator Relationship Specialty Start Date End Date Ariel Sainz MD [address] [facility] [place] [address] PCP - General Internal Medicine 01/15/16 13, Pharmacist [phone] [place] [address], [place] [address] Pharmacist Pharmacy 08/22/20 Lock Corner Machine Operator Relationship Specialty Start Date End Date Ariel Sainz MD [address] [place] [address] PCP - General Internal Medicine 01/15/16 13, Pharmacist [phone] [place] [address], [place] [address] Pharmacist Pharmacy 08/22/20 Lock Corner Machine Operator Relationship Specialty Start Date End Date Ariel Sainz MD [address] [facility] [place] [address] PCP - General Internal Medicine 01/15/16 13, Pharmacist [phone] [place] [address] Pharmacist Pharmacy 08/22/20 Lock Corner Machine Operator Relationship Specialty Start Date End Date Ariel Sainz MD [address] [facility] [place] [address] PCP - General Internal Medicine 01/15/16 Lock Corner Machine Operator Relationship Specialty Start Date End Date Ariel Sainz MD [address] [place] [address] PCP - General Internal Medicine 01/15/16 Lock Corner Machine Operator Relationship Specialty Start Date End Date Ariel Sainz MD [address] [place] [address] PCP - General Internal Medicine 01/15/16 Lock Corner Machine Operator Relationship Specialty Start Date End Date Ariel Sainz MD [address] [place] [address] PCP - General Internal Medicine 01/15/16 Lock Corner Machine Operator Relationship Specialty Start Date End Date Ariel Sainz MD [address] [facility] [place] [address] PCP - General Internal Medicine 01/15/16 Lock Corner Machine Operator Relationship Specialty Start Date End Date Ariel Sainz MD [address] [facility] [place] [address] PCP - General Internal Medicine 01/15/16 Lock Corner Machine Operator Relationship Specialty Start Date End Date Ariel Sainz MD [address] [facility] [place] [address] PCP - General Internal Medicine 01/15/16 Lock Corner Machine Operator Relationship Specialty Start Date End Date Ariel Sainz MD [address] [facility] [place] [address] PCP - General Internal Medicine 01/15/16 Lock Corner Machine Operator Relationship Specialty Start Date End Date Ariel Sainz MD [address] [facility] [place] [address] PCP - General Internal Medicine 01/15/16 Lock Corner Machine Operator Relationship Specialty Start Date End Date Ariel Sainz MD [address] [facility] [place] [address] PCP - General Internal Medicine 01/15/16 Sal Bonilla, [address] [place] [address] Hematology/Oncology 03/22/22 Lock Corner Machine Operator Relationship Specialty Start Date End Date Ariel Sainz MD [address] [place] [address] PCP - General Internal Medicine 01/15/16 Sal Bonilla, DO [address] [place] [address] Hematology/Oncology 03/22/22 Lock Corner Machine Operator Relationship Specialty Start Date End Date Ariel Sainz MD [address] [place] [address] PCP - General Internal Medicine 01/15/16 Sal Bonilla, DO [address] [place] [address] Hematology/Oncology 03/22/22 Lock Corner Machine Operator Relationship Specialty Start Date End Date Ariel Sainz MD [address] [place] [address] PCP - General Internal Medicine 01/15/16 Sal Bonilla, DO [address] [place] [address] Hematology/Oncology 03/22/22 Lock Corner Machine Operator Relationship Specialty Start Date End Date Ariel Sainz MD [address] [place] [address] PCP - General Internal Medicine 01/15/16 Sal Bonilla, DO [address] [place] [address] Hematology/Oncology 03/22/22 Lock Corner Machine Operator Relationship Specialty Start Date End Date Ariel Sainz MD [address] [place] [address] PCP - General Internal Medicine 01/15/16 Sal Bonilla, DO [address] [place] [address] Hematology/Oncology 03/22/22 Lock Corner Machine Operator Relationship Specialty Start Date End Date Ariel Sainz MD [address] [place] [address] PCP - General Internal Medicine 01/15/16 Sal Bonilla, DO [address] [place] [address] Hematology/Oncology 03/22/22 Lock Corner Machine Operator Relationship Specialty Start Date End Date Ariel Sainz MD [address] [place] [address] PCP - General Internal Medicine 01/15/16 Sal Bonilla, DO [address] [place] [address] Hematology/Oncology 03/22/22 Lock Corner Machine Operator Relationship Specialty Start Date End Date Ariel Sainz MD [address] [place] [address] PCP - General Internal Medicine 01/15/16 Sal Bonilla, DO [address] [place] [address] Hematology/Oncology 03/22/22 Lock Corner Machine Operator Relationship Specialty Start Date End Date Ariel Sainz MD [address] [place] [address] PCP - General Internal Medicine 01/15/16 Sal Bonilla, DO [address] [place] [address] Hematology/Oncology 03/22/22 Lock Corner Machine Operator Relationship Specialty Start Date End Date Ariel Sainz MD [address] [place] [address] PCP - General Internal Medicine 01/15/16 Sal Bonilla DO [address] [place] [address] Hematology/Oncology 03/22/22 Lock Corner Machine Operator Relationship Specialty Start Date End Date Ariel Sainz MD [address] [place] [address] PCP - General Internal Medicine 01/15/16 Sal Bonilla DO [address] [place] [address] Hematology/Oncology 03/22/22 Lock Corner Machine Operator Relationship Specialty Start Date End Date Ariel Sainz MD [address] [place] [address] PCP - General Internal Medicine 01/15/16 Sal Bonilla DO [address] [place] [address] Hematology/Oncology 03/22/22 Lock Corner Machine Operator Relationship Specialty Start Date End Date Ariel Sainz MD [address] [place] [address] PCP - General Internal Medicine 01/15/16 Sal Bonilla DO [address] [place] [address] Hematology/Oncology 03/22/22 Lock Corner Machine Operator Relationship Specialty Start Date End Date Ariel Saizn MD [address] [place] [address] PCP - General Internal Medicine 01/15/16 Sal Bonilla DO [address] [place] [address] Hematology/Oncology 03/22/22 Lock Corner Machine Operator Relationship Specialty Start Date End Date Ariel Sainz MD [address] [place] [address] PCP - General Internal Medicine 01/15/16 Sal Bonilla DO [address] [place] [address] Hematology/Oncology 03/22/22 Lock Corner Machine Operator Relationship Specialty Start Date End Date Ariel Sainz MD [address] [place] [address] PCP - General Internal Medicine 01/15/16 Sal Bonilla DO [address] [place] [address] Hematology/Oncology 03/22/22 Lock Corner Machine Operator Relationship Specialty Start Date End Date Ariel Sainz MD [address] [place] [address] PCP - General Internal Medicine 01/15/16 Sal Bonilla DO [address] [place] [address] Hematology/Oncology 03/22/22 Lock Corner Machine Operator Relationship Specialty Start Date End Date Ariel Sainz MD [address] [place] [address] PCP - General Internal Medicine 01/15/16 Sal Bonilla DO [address] [place] [address] Hematology/Oncology 03/22/22 FOR RECORDS PERTAINING TO PATIENTS WHO ARE OR HAVE BEEN ENROLLED IN A CHEMICAL DEPENDENCY/SUBSTANCEABUSE PROGRAM, SOME INFORMATION MAY BE OMITTED. This clinical summary was aggregated from multiple sources. Caution should be exercised in using it in the provision of clinical care. This summary normalizes information from multiple sources, and as a consequence, information in this document may materially change the coding, format and clinical context of patient data. In addition, data may be omitted in some cases. CLINICAL DECISIONS SHOULD BE BASED ON THE PRIMARY CLINICAL RECORDS. [employer] provides no warranty or guarantee of the accuracy or completeness of information in this document.
[2023-03-31 07:55] LABS: Absolute Lymphocyte Count 1.66 X10^3/uL (0.83-4.51); Absolute Neutrophil Count 4.8 X10^3/uL (2.0-7.7); Basophil# 0.05 X10^3/uL; Basophil% 0.7 % (0-1); Eosinophil# 0.08 X10^3/uL; Eosinophils% 1.1 % (0-5); Hematocrit 36.7 % (37-47); Hemoglobin 12.3 g/dL (12.0-15.0); Lymphocyte # 1.66 X10^3/ul (0.83-4.51); Lymphocyte % 22.5 % (19-41); Mean Corp Hgb Conc 33.5 g/dL (32-36); Mean Corpuscular Hgb 34.7 pg (27.0-32.0); Mean Corpuscular Volume 103.7 fL (81-99); Mean Platelet Vol. 9.9 fl (6.2-12.0); Monocyte# 0.72 X10^3/uL; Monocyte% 9.8 % (0-10); NRBC Flagged by Analyzer 0 % (0-5); Neutrophil # 4.83 X10^3/uL (2.7-7.7); Neutrophil % 65.4 % (47-70); Platelet Count 139 K/mm3 (150-450); RBC Distribution Width CV 13.6 % (11.6-14.6); RBC Distribution Width SD 51.9 fl (35.1-43.9); Red Blood Count 3.54 M/mm3 (4.2-5.4); White Blood Count 7.4 K/mm3 (4.4-11.0)
[2023-03-31 11:02] LABS: ALB/GLOB Ratio 0.7 RATIO (0.9-2.4); AST(SGOT) 22 U/L (15-37); Alanine Aminotransfer ALT/SGPT 26 U/L (13-56); Albumin, Serum 2.8 g/dL (3.2-5.0); Alkaline Phosphatase 60 U/L (45-117); Anion Gap 6 (5-15); BUN 12 mg/dL (7-18); BUN/Creat Ratio 19.8 RATIO (10-20); Calcium,Total 9.1 mg/dL (8.5-10.1); Chloride 109 mmol/L (98-107); Creatinine, Serum 0.61 mg/dL (0.55-1.02); EST Glomerular Filtration Rate 99 mL/min (>60); Est Glom Filt Rate - Afr Amer 120 mL/min (>60); Globulin 4.2 g/dL (2.2-4.2); Glucose 69 mg/dL (74-106); Potassium 4.1 mmol/L (3.5-5.1); Sodium Level 142 mmol/L (136-145)
== END ==
LOC: OLS.WHLTSB 05:00
PROVIDERS: PCP Internal Medicine; Visit Provider Internal Medicine
DX: I49.9 Cardiac arrhythmia, unspecified (principal)
CPT/HCPCS: 36415; 80053; 85025

== ENCOUNTER → 2023-05-05 | Outpatient (REF) | payer MEDICARE, BC, SELFPAY ==
--- OUTSIDE RECORDS SUMMARY | 2023-05-05 05:30 | XMS RPT_ITS | CCD ---
Author Name Unknown Address [address] [facility] [facility] [address] [place] [address] Organization [facility] Care Team Providers Care Compensation Supervisor Name Role Phone Alistair PANG, Ariel Primary Care Provider 13, Pharmacist Unavailable Ariel Sainz MD Primary Care Provider BASILIA HERNÁNDEZ Attending Unavailable GANTA, ARIEL Referring Unavailable GANTA, ARIEL Primary Care Unavailable BASILIA HERNÁNDEZ Attending Unavailable MONA HEBERT Referring Unavailable GANTA, ARIEL Primary Care Unavailable Ariel Sainz MD Primary Care Provider Sal Bonilla DO Unavailable Alistair PANG, Ariel Primary Care Provider Payam Reyna MD Primary Care Provider [phone] ANGELIC ARREOLA Referring Unavailable GANTA, ARIEL Primary Care Unavailable GANTA, ARIEL Primary Care Unavailable VETOVITZ, STELLA Attending Unavailable GANTA, ARIEL Primary Care Unavailable ARREOLALINDABY Attending Unavailable ARREOLA, ANGELIC Referring Unavailable GANTA, ARIEL Primary Care Unavailable ARREOLA, ANGELIC Referring Unavailable GANTA, ARIEL Primary Care Unavailable GANTA, ARIEL Primary Care Unavailable SHERICE PERSAUD Attending Unava ilable GANTA, ARIEL Primary Care Unavailable JERRICA BELTRAN Referring Unavailable JULIET MORGAN Attending Unavailable ARREOLA, ANGELIC Referring Unavailable GANTA, ARIEL Primary Care Unavailable ARREOLA, ANGELIC Attending Unavailable ARREOLA, ANEGLIC Referring Unavailable GANTA, ARIEL Primary Care Unavailable GANTA, ARIEL Primary Care Unavailable VETOVITZ, STELLA Referring Unavailable VETOVITZ, STELLA Attending Unavailable GANTA, ARIEL Primary Care Unavailable VETOVITZ, STELLA Referring Unavailable GANTA, ARIEL Primary Care Unavailable RAYTHALIA Attending Unavailable SIBILIA, OBDULIA Referring Unavailable GANTA, ARIEL Primary Care Unavailable GANTA, ARIEL Primary Care Unavailable ARREOLA, ANGELIC Referring Unavailable ARREOLA, ANGELIC Attending Unavailable GANTA, ARIEL Primary Care Unavailable ARREOLA, ANGELIC Referring Unavailable ARREOLA, ANGELIC Referring Unavailable GANTA, AREIL Primary Care Unavailable GANTA, ARIEL Primary Care Unavailable ARREOLA, ANGELIC Referring Unavailable GANTA, ARIEL Primary Care Unavailable ARREOLA, ANGELIC Referring Unavailable ARREOLA, ANGELIC Referring Unavailable GANTA, ARIEL Primary Care Unavailable GANTA, ARIEL Primary Care Unavailable CECILIO IBARRA Referring Unavailabl e AMCECILIO AVERY Attending Unavailabl e GANTA, ARIEL Primary Care Unavailable ARREOLA, ANGELIC Referring Unavailable GANTA, ARIEL Primary Care Unavailable ARREOLA, ANGELIC Referring Unavailable Allergies Allergy Classification Reported Allergen(s) Allergy Type Date of Onset Reaction(s) Facility (20 sources) Angiotensin-conv erting enzyme inhibitor agent; Translations: [DESMOND INHIBITORS] Drug Intolerance 5 Cough [facility] (20 sources) Cephalexin; Translations: [CEPHALEXIN] Drug Allergy 9 Other: See Comments, Contraindicati on-Medical Surgical [facility] (20 sources) Clindamycin; Translations: [CLINDAMYCIN] Drug Allergy 6 Other: See Comments, Contraindicati on-Medical Surgical [facility] (20 sources) cyclobenzaprine; Translations: [CYCLOBENZAPRINE ] Drug Allergy 5 Contraindicati on-Medical Surgical [facility] (20 sources) Diclofenac / miSOPROStol; Translations: [DICLOFENAC-MISO PROSTOL] Drug Allergy 8 Diarrhea [facility] (20 sources) hydroCHLOROthiaz ariana; Translations: [HYDROCHLOROTHIA ZIDE] Drug Allergy 6 Mental Status Change [facility] (20 sources) Lisinopril; Translations: [LISINOPRIL] Drug Allergy 8 [facility] (20 sources) metroNIDAZOLE; Translations: [METRONIDAZOLE HCL] Drug Allergy 0 Mental Status Change, Shortness of Breath [facility] (20 sources) Naproxen; Translations: [NAPROXEN] Drug Allergy 0 Other: See Comments [facility] (20 sources) Naproxen; Translations: [NAPROXEN SODIUM] Drug Allergy 0 Contraindicati on-Medical Surgical [facility] (20 sources) oxybutynin; Translations: [OXYBUTYNIN] Drug Allergy 1 Other: See Comments [facility] (20 sources) PARoxetine; Translations: [PAROXETINE] Drug Allergy 5 Contraindicati on-Medical Surgical [facility] (20 sources) prednisoLONE / Sulfacetamide; Translations: [SULFACETAMIDE-P REDNISOLONE] Drug Allergy 1 Cough [facility] (20 sources) Sulfonamides (Antibiotic); Translations: [SULFA (SULFONAMIDE ANTIBIOTICS)] Drug Allergy 6 Unknown [facility] Work Phone: (20 sources) adhesives [Other] Propensity to adverse reactions 8 Other: See Comments [facility] (20 sources) Angiotensin-conv erting enzyme inhibitor agent Drug Intolerance 5 Cough [facility] (2 sources) OTHER; Translations: [OTHER] Propensity to adverse reactions (disorder) 8 [facility] Other [place] [facility] Medications Current Medications Medication Drug Class(es) [...] [Paroxysmal atrial fibrillation] Onset: 0 04-09-2021 Chronic Coagulation and hemorrhagic disorders (2 sources) Platelet count below reference range; Translations: [Thrombocytopenia, unspecified] Onset: 3 02-24-2023 Chronic Complications of surgical procedures or medical [...] history of malignant neoplasm of breast] Onset: 06-05-2022 Episodic Deficiency and other anemia (20 sources) Anemia; Translations: [Anemia, unspecified] Onset: 08-12-2021 08-13-2021 Episodic Fever of unknown origin (20 sources) Fever; Translations: [Fever, unspecified] Onset: 07-06-2021 07-06-2021 Episodic Genitourinary symptoms and ill-defined conditions (20 sources) Urgent desire to urinate; Translations: [Urgency of urination] Onset: 07-27-2015 07-27-2015 Episodic Other aftercare (20 sources) Long-term current use of anticoagulant; Translations: [long-term (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 anticoagulants] Onset: 02-25-2015 03-22-2019 [...] wrist; Translations: [Pain in right wrist] Onset: 12-19-2022 Episodic Other skin disorders (20 sources) Primary focal hyperhidrosis; Translations: [Primary focal hyperhidrosis, unspecified] Onset: 05-29-2012 05-29-2012 Episodic Urinary tract infections (20 sources) Acute cystitis; Translations: [Acute cystitis without hematuria] Onset: 01-28-2011 07-08-2021 Episodic Results Test Name Value Interpretation Reference Range Facil ity Vital Signs Date Time Vital Sign Value Performing Clinician Nikita mendoza 02-11-2023 10:15-0500 Body temperature 97.9 [degF] Angelic Arreola WARD ASSISTANT.PAINT PREPPER Work Phone: [facility] 02-11-2023 10:15-0500 Body weight 80.74 kg Angelic Arreola WARD ASSISTANT.PAINT PREPPER Work Phone: [facility] 02-11-2023 10:15-0500 Diastolic blood pressure 70 mm[Hg] Angelic Arreola WARD ASSISTANT.PAINT PREPPER Work Phone: [facility] 02-11-2023 10:15-0500 Heart rate 62 /min Angelic Arreola WARD ASSISTANT.PAINT PREPPER Work Phone: [facility] 02-11-2023 10:15-0500 SaO2% (BldA) [Mass fraction] 99 % Angelic Arreola WARD ASSISTANT.PAINT PREPPER Work Phone: [facility] 02-11-2023 10:15-0500 Systolic blood pressure 124 mm[Hg] Angelic Arreola WARD ASSISTANT.PAINT PREPPER Work Phone: [facility] 12-13-2022 14:31-0400 Body height 167.6 cm Juliet Morgan APRN.PAINT PREPPER Work Phone: [facility] 12-13-2022 14:31-0400 Body weight 79.38 kg Juliet Morgan APRN.PAINT PREPPER Work Phone: [facility] 12-13-2022 14:31-0400 Diastolic blood pressure 60 mm[Hg] Juliet Morgan APRN.PAINT PREPPER Work Phone: [facility] 12-13-2022 14:31-0400 Heart rate 68 /min Juliet Morgan WARD ASSISTANT.PAINT PREPPER Work Phone: [facility] 12-13-2022 14:31-0400 SaO2% (BldA) [Mass fraction] 97 % Juliet Morgan WARD ASSISTANT.PAINT PREPPER Work Phone: [facility] 12-13-2022 14:31-0400 Systolic blood pressure 130 mm[Hg] Juliet Morgan WARD ASSISTANT.PAINT PREPPER Work Phone: [facility] 09-05-2022 09:20-0400 Body height 167.6 cm Cecilio Amalfitano DO Work Phone: [facility] 09-05-2022 09:20-0400 Body weight 78.02 kg Cecilio Amalfitano DO Work Phone: [facility] 09-05-2022 09:20-0400 Diastolic blood pressure 64 mm[Hg] Cecilio Amalfitano DO Work Phone: [facility] 09-05-2022 09:20-0400 Heart rate 69 /min Cecilio Amalfitano DO Work Phone: [facility] 09-05-2022 09:20-0400 Systolic blood pressure 124 mm[Hg] Cecilio Amalfitano DO Work Phone: [facility] 08-27-2022 11:27-0400 Body temperature 98.4 [degF] Angelic Arreola WARD ASSISTANT.PAINT PREPPER Work Phone: [facility] 08-27-2022 11:27-0400 Body weight 76.66 kg Angelic Arreola WARD ASSISTANT.PAINT PREPPER Work Phone: [facility] 08-27-2022 11:27-0400 Diastolic blood pressure 56 mm[Hg] Angelic Arreola WARD ASSISTANT.PAINT PREPPER Work Phone: [facility] 08-27-2022 11:27-0400 Heart rate 73 /min Angelic Arreola WARD ASSISTANT.PAINT PREPPER Work Phone: [facility] 08-27-2022 11:27-0400 SaO2% (BldA) [Mass fraction] 96 % Angelic Arreola WARD ASSISTANT.PAINT PREPPER Work Phone: [facility] 08-27-2022 11:27-0400 Systolic blood pressure 116 mm[Hg] Concord Arreola WARD ASSISTANT.PAINT PREPPER Work Phone: [facility] 06-05-2022 11:03-0400 Body temperature 97.81 [degF] Angelic Blackmonenter WARD ASSISTANT.PAINT PREPPER Work Phone: [facility] 06-05-2022 11:03-0400 Body weight 77.34 kg Angelic Blackmonenter WARD ASSISTANT.PAINT PREPPER Work Phone: [facility] 06-05-2022 11:03-0400 Diastolic blood pressure 54 mm[Hg] Angelic Arreola WARD ASSISTANT.PAINT PREPPER Work Phone: [facility] 06-05-2022 11:03-0400 Heart rate 74 /min Angelic Blackmonenter WARD ASSISTANT.PAINT PREPPER Work Phone: [facility] 06-05-2022 11:03-0400 SaO2% (BldA) [Mass fraction] 97 % Angelic Blackmonenter WARD ASSISTANT.PAINT PREPPER Work Phone: [facility] 06-05-2022 11:03-0400 Systolic blood pressure 116 mm[Hg] Angelic Blackmonenter WARD ASSISTANT.PAINT PREPPER Work Phone: [facility] 04-17-2022 09:47-0500 Body temperature 97.9 [degF] Treatment Wstr Work Phone: [facility] 04-17-2022 09:47-0500 Diastolic blood pressure 60 mm[Hg] Treatment Wstr Work Phone: [facility] 04-17-2022 09:47-0500 Heart rate 77 /min Treatment Wstr Work Phone: [facility] 04-17-2022 09:47-0500 SaO2% (BldA) [Mass fraction] 97 % Treatment Wstr Work Phone: [facility] 04-17-2022 09:47-0500 Systolic blood pressure 126 mm[Hg] Treatment Wstr Work Phone: [facility] 04-15-2022 14:39-0500 Body temperature 97.2 [degF] Treatment Wstr Work Phone: [facility] 04-15-2022 14:39-0500 Diastolic blood pressure 62 mm[Hg] Treatment Wstr Work Phone: [facility] 04-15-2022 14:39-0500 Heart rate 68 /min Treatment Wstr Work Phone: [facility] 04-15-2022 14:39-0500 Respiratory rate 16 /min Treatment Wstr Work Phone: [facility] 04-15-2022 14:39-0500 Systolic blood pressure 135 mm[Hg] Treatment Wstr Work Phone: [facility] 04-12-2022 13:55-0500 Body temperature 97.7 [degF] Treatment Wstr Work Phone: [facility] 04-12-2022 13:55-0500 Diastolic blood pressure 47 mm[Hg] Treatment Wstr Work Phone: [facility] 04-12-2022 13:55-0500 Heart rate 71 /min Treatment Wstr Work Phone: [facility] 04-12-2022 13:55-0500 Systolic blood pressure 119 mm[Hg] Treatment Wstr Work Phone: [facility] 04-10-2022 10:54-0500 Body temperature 97.3 [degF] Treatment Wstr Work Phone: [facility] 04-10-2022 10:54-0500 Diastolic blood pressure 54 mm[Hg] Treatment Wstr Work Phone: [facility] 04-10-2022 10:54-0500 Heart rate 78 /min Treatment Wstr Work Phone: [facility] 04-10-2022 10:54-0500 Systolic blood pressure 134 mm[Hg] Treatment Wstr Work Phone: [facility] 04-09-2022 14:29-0500 Body height 167.6 cm Taty Perez APRN.PAINT PREPPER Work Phone: [facility] 04-09-2022 14:29-0500 Body weight 76.66 kg Taty Perez APRN.PAINT PREPPER Work Phone: [facility] 04-09-2022 14:29-0500 Diastolic blood pressure 58 mm[Hg] Taty Perez WARD ASSISTANT.PAINT PREPPER Work Phone: [facility] 04-09-2022 14:29-0500 Heart rate 75 /min Taty Perez WARD ASSISTANT.PAINT PREPPER Work Phone: [facility] 04-09-2022 14:29-0500 SaO2% (BldA) [Mass fraction] 98 % Taty Perez WARD ASSISTANT.PAINT PREPPER Work Phone: [facility] 04-09-2022 14:29-0500 Systolic blood pressure 118 mm[Hg] Taty Perez WARD ASSISTANT.PAINT PREPPER Work Phone: [facility] 04-08-2022 11:01-0500 Body temperature 97.3 [degF] Treatment Wstr Work Phone: [facility] 04-08-2022 11:01-0500 Diastolic blood pressure 57 mm[Hg] Treatment Wstr Work Phone: [facility] 04-08-2022 11:01-0500 Heart rate 79 /min Treatment Wstr Work Phone: [facility] 04-08-2022 11:01-0500 Systolic blood pressure 125 mm[Hg] Treatment Wstr Work Phone: [facility] 03-06-2022 14:21-0500 Body temperature 97.11 [degF] Angelic Arreola WARD ASSISTANT.PAINT PREPPER Work Phone: [facility] 03-06-2022 14:21-0500 Body weight 76.43 kg Angelic Arreola WARD ASSISTANT.PAINT PREPPER Work Phone: [facility] 03-06-2022 14:21-0500 Diastolic blood pressure 57 mm[Hg] Angelic Arreola WARD ASSISTANT.PAINT PREPPER Work Phone: [facility] 03-06-2022 14:21-0500 Heart rate 72 /min Angelic Arreola WARD ASSISTANT.PAINT PREPPER Work Phone: [facility] 03-06-2022 14:21-0500 SaO2% (BldA) [Mass fraction] 100 % Angelic Blackmonenter WARD ASSISTANT.PAINT PREPPER Work Phone: [facility] 03-06-2022 14:21-0500 Systolic blood pressure 119 mm[Hg] Concordsuhas Arreola WARD ASSISTANT.PAINT PREPPER Work Phone: [facility] 01-02-2022 13:31-0400 Body height 167.6 cm Basilia Hernández MD Work Phone: [facility] 01-02-2022 13:31-0400 Body weight 74.84 kg Basilia Hernández MD Work Phone: [facility] 01-02-2022 13:31-0400 Diastolic blood pressure 62 mm[Hg] Basilia Hernández MD Work Phone: [facility] 01-02-2022 13:31-0400 Systolic blood pressure 126 mm[Hg] Basilia Hernández MD Work Phone: [facility] 10-11-2021 07:56-0400 Body temperature 98.01 [degF] Jeancarlos Hooker MD Work Phone: [facility] 10-11-2021 07:56-0400 Body weight 77.56 kg Jeancarlos Hooker MD Work Phone: [facility] 10-11-2021 07:56-0400 Diastolic blood pressure 48 mm[Hg] Jeancarlos Hooker MD Work Phone: [facility] 10-11-2021 07:56-0400 Heart rate 78 /min Jeancarlos Hooker MD Work Phone: [facility] 10-11-2021 07:56-0400 Respiratory rate 16 /min Jeancarlos Hooker MD Work Phone: [facility] 10-11-2021 07:56-0400 SaO2% (BldA) [Mass fraction] 100 % Jeancarlos Hooker MD Work Phone: [facility] 10-11-2021 07:56-0400 Systolic blood pressure 115 mm[Hg] Jeancarlos Hooker MD Work Phone: [facility] 09-26-2021 14:00-0400 Body height 167.6 cm Basilia Hernández MD Work Phone: [facility] 09-26-2021 14:00-0400 Body weight 77.11 kg Basilia Hernández MD Work Phone: [facility] 09-18-2021 09:15-0400 Body temperature 97.39 [degF] Concord Arreola WARD ASSISTANT.PAINT PREPPER Work Phone: [facility] 09-18-2021 09:15-0400 Body weight 77.11 kg Concord Arreola WARD ASSISTANT.PAINT PREPPER Work Phone: [facility] 09-18-2021 09:15-0400 Diastolic blood pressure 47 mm[Hg] Angelic Arreola WARD ASSISTANT.PAINT PREPPER Work Phone: [facility] 09-18-2021 09:15-0400 Heart rate 75 /min Concord Arreola WARD ASSISTANT.PAINT PREPPER Work Phone: [facility] 09-18-2021 09:15-0400 Systolic blood pressure 108 mm[Hg] Concord Arreola WARD ASSISTANT.PAINT PREPPER Work Phone: [facility] 09-18-2021 09:12-0400 Body weight 77.25 kg Lab/Port Wstr Work Phone: [facility] 09-11-2021 10:39-0400 Body weight 76.66 kg Mona Hebert MD Work Phone: [facility] 09-11-2021 10:39-0400 Diastolic blood pressure 58 mm[Hg] Mona Hebert MD Work Phone: [facility] 09-11-2021 10:39-0400 Systolic blood pressure 124 mm[Hg] Mona Hebert MD Work Phone: [facility] 09-05-2021 13:15-0400 Body height 167.6 cm Cecilio Ibarra DO Work Phone: [facility] 09-05-2021 13:15-0400 Body weight 77.66 kg Cecilio Ibarra DO Work Phone: [facility] 09-05-2021 13:15-0400 Diastolic blood pressure 54 mm[Hg] Cecilio Ibarra DO Work Phone: [facility] 09-05-2021 13:15-0400 Heart rate 73 /min Cecilio Ibarra DO Work Phone: [facility] 09-05-2021 13:15-0400 SaO2% (BldA) [Mass fraction] 97 % Cecilio Ibarra DO Work Phone: [facility] 09-05-2021 13:15-0400 Systolic blood pressure 104 mm[Hg] Cecilio Ibarra DO Work Phone: [facility] 08-30-2021 13:17-0400 Body weight 78.47 kg Mona Hebert MD Work Phone: [facility] 08-15-2021 16:04-0400 Body weight 78.47 kg Mona Hebert MD Work Phone: [facility] 08-15-2021 16:04-0400 Diastolic blood pressure 58 mm[Hg] Mona Hebert MD Work Phone: [facility] 08-15-2021 16:04-0400 Systolic blood pressure 118 mm[Hg] Mona Hebert MD Work Phone: [facility] 08-08-2021 14:10-0400 Body weight 78.02 kg An Older WARD ASSISTANT.PAINT PREPPER Work Phone: [facility] 08-08-2021 14:10-0400 Diastolic blood pressure 66 mm[Hg] An Older WARD ASSISTANT.PAINT PREPPER Work Phone: [facility] 08-08-2021 14:10-0400 Heart rate 68 /min An Older WARD ASSISTANT.PAINT PREPPER Work Phone: [facility] 08-08-2021 14:10-0400 Respiratory rate 16 /min An Older WARD ASSISTANT.PAINT PREPPER Work Phone: [facility] 08-08-2021 14:10-0400 Systolic blood pressure 116 mm[Hg] An Older WARD ASSISTANT.PAINT PREPPER Work Phone: [facility] 07-05-2021 09:41-0400 Body height 167.6 cm Johnny Turk MD Work Phone: [facility] 07-05-2021 09:41-0400 Body temperature 98.6 [degF] Johnny Turk MD Work Phone: [facility] 07-05-2021 09:41-0400 Body weight 79.83 kg Johnny Turk MD Work Phone: [facility] 07-05-2021 09:41-0400 Diastolic blood pressure 60 mm[Hg] Johnny Turk MD Work Phone: [facility] 07-05-2021 09:41-0400 Heart rate 69 /min Johnny Turk MD Work Phone: [facility] 07-05-2021 09:41-0400 SaO2% (BldA) [Mass fraction] 100 % Johnny Turk MD Work Phone: [facility] 07-05-2021 09:41-0400 Systolic blood pressure 106 mm[Hg] Johnny Turk MD Work Phone: [facility] 07-03-2021 11:58-0400 Body temperature 98.4 [degF] Alma Older WARD ASSISTANT.PAINT PREPPER Work Phone: [facility] 07-03-2021 11:58-0400 Body weight 78.93 kg Alma Older WARD ASSISTANT.PAINT PREPPER Work Phone: [facility] 07-03-2021 11:58-0400 Diastolic blood pressure 64 mm[Hg] Alma Older WARD ASSISTANT.PAINT PREPPER Work Phone: [facility] 07-03-2021 11:58-0400 Heart rate 67 /min Alma Older WARD ASSISTANT.PAINT PREPPER Work Phone: [facility] 07-03-2021 11:58-0400 Respiratory rate 12 /min Alma Older WARD ASSISTANT.PAINT PREPPER Work Phone: [facility] 07-03-2021 11:58-0400 SaO2% (BldA) [Mass fraction] 97 % Alma Older WARD ASSISTANT.PAINT PREPPER Work Phone: [facility] 07-03-2021 11:58-0400 Systolic blood pressure 118 mm[Hg] Alma Older WARD ASSISTANT.PAINT PREPPER Work Phone: [facility] 06-05-2021 10:40-0400 Body height 167.6 cm Aby Bruner DO Work Phone: [facility] 06-05-2021 10:40-0400 Body weight 79.83 kg Aby Bruner DO Work Phone: [facility] 06-05-2021 10:40-0400 Diastolic blood pressure 62 mm[Hg] Aby Bruner DO Work Phone: [facility] 06-05-2021 10:40-0400 Heart rate 65 /min Aby Bruner DO Work Phone: [facility] 06-05-2021 10:40-0400 SaO2% (BldA) [Mass fraction] 99 % Aby Bruner DO Work Phone: [facility] 06-05-2021 10:40-0400 Systolic blood pressure 110 mm[Hg] Aby Bruner DO Work Phone: [facility] Encounters Encounter Date Encounter Type Care Provider Facility Start: 04-28-2023 Telephone encounter Thalia Monterroso MD Work Phone: Rheumatology Procedures Date Procedure Procedure Detail Performing Clinician Start: 11-25-2022 Radex wrist complete minimum 3 views Stella Preciado PA-C Work Phone: Start: 11-25-2022 Arthrocentesis aspir &/inj major jt/bursa w/o us Stella Preciado PA-C Work Phone: Start: 09-05-2022 Ecg routine ecg w/le ast 12 lds i&r only [facility] Provider Start: 06-05-2022 Radex ribs unilatera l 2 views Angelic Arreola WARD ASSISTANT.PAINT PREPPER Work Phone: Start: 03-22-2022 Blood count complete auto&auto difrntl wbc Sal Bonilla DO Work Phone: Start: 03-14-2022 Comprehensive metabo lic panel Sal Bonilla DO Work Phone: Start: 01-21-2022 Arthrocentesis aspir &/inj major jt/bursa w/o us Stella Preciado PA-C Work Phone: Start: 01-02-2022 Urnls dip [...] et rgnt auto w/o microscopy An Ta WARD ASSISTANT.PAINT PREPPER Work Phone: Start: 01-12-2021 Antibody screen Plan of Treatment Date Care Activity Detail Author Start: 03-14-2025 DIABETES SCREEN DIABETES SCREEN [facility] Start: 03-14-2025 Diabetes Screening Diabetes Screening [facility] Start: 08-13-2024 DIABETES SCREEN DIABETES SCREEN [facility] Start: 2024 DIABETES SCREEN DIABETES SCREEN [facility] Start: 07-11-2024 DIABETES SCREEN DIABETES SCREEN [facility] Start: 07-06-2024 DIABETES SCREEN DIABETES SCREEN [facility] Start: 07-05-2024 DIABETES SCREEN DIABETES SCREEN [facility] Start: 05-22-2024 DIABETES SCREEN DIABETES SCREEN [facility] Start: 03-17-2023 Advance Directive Discussion Advance Directive Discussion [facility] Start: 11-17-2022 Urine microalbumin profile [facility] Start: 11-15-2022 Covid-19 Vaccine ( season) Covid-19 Vaccine ( season) [facility] Start: 11-15-2022 Influenza vaccination [facility] Start: 09-19-2022 End: 11-19-2022 CBC panel - Blood by Automated count CBC Lab Routine Paroxysmal atrial fibrillation (HCC) Rheumatic mitral regurgitation Essential hypertension Mixed hyperlipidemia Obstructive sleep apnea syndrome Shortness of breath PAF (paroxysmal atrial fibrillation) (HCC) SVT (supraventricular tachycardia) (HCC) Expected: 09/19/2022, Expires: 11/19/2022 [facility] Work Phone: Immunizations Immunization Date Immunization Notes Care Provider Kevin gómez 01-18-2021 influenza, high-dose , quadrivalent vaccine (FLUZONE HIGH DOSE QUADRIVALENT) Aby Bruner DO Work Phone: [facility] Work Phone: 01-18-2021 influenza virus vaccine, unspecified formulation Stella Preciado PA-C Work Phone: [facility] 11-22-2020 COVID-19 vaccine, ag e 12+ yr (PFIZER-[employer] - PURPLE TOP) Aby Bruner DO Work Phone: [facility] 05-04-2020 COVID-19 vaccine, fu ll dose (MODERNA) Aby Bruner DO Work Phone: [facility] 04-06-2020 COVID-19 vaccine, fu ll dose (MODERNA) Aby Bruner DO Work Phone: [facility] 12-18-2019 influenza, high-dose , quadrivalent vaccine (FLUZONE HIGH DOSE QUADRIVALENT) Aby Bruner DO Work Phone: [facility] 12-30-2018 influenza, high dose seasonal, preservative-free Aby Bruner DO Work Phone: [facility] Work Phone: 12-09-2017 influenza, high dose seasonal, preservative-free Aby Bruner DO Work Phone: [facility] 12-02-2016 influenza, high dose seasonal, preservative-free Aby Bruner DO Work Phone: [facility] Work Phone: 12-05-2015 influenza, high dose seasonal, preservative-free Aby Bruner DO Work Phone: [facility] 01-10-2015 pneumococcal conjuga te vaccine, 13 valent Aby Bruner DO Work Phone: [facility] Work Phone: 12-12-2014 influenza, high dose seasonal, preservative-free Aby Bruner DO Work Phone: [facility] 12-22-2013 influenza, seasonal, injectable Aby Bruner DO Work Phone: [facility] 01-09-2013 influenza virus vaccine, unspecified formulation Aby Bruner DO Work Phone: [facility] Work Phone: 11-17-2012 tetanus toxoid, redu issac diphtheria toxoid, and acellular pertussis vaccine, adsorbed Aby Bruner DO Work Phone: [facility] 01-16-2012 influenza virus vaccine, unspecified formulation Aby Bruner DO Work Phone: [facility] 06-07-2011 zoster vaccine, live Opal Bruner DO Work Phone: [facility] 02-01-2011 influenza virus vaccine, unspecified formulation Aby Bruner DO Work Phone: [facility] Work Phone: 01-29-2010 influenza virus vaccine, unspecified formulation Aby Bruner DO Work Phone: [facility] 12-24-2008 influenza virus vaccine, unspecified formulation Aby Bruner DO Work Phone: [facility] 01-20-2008 influenza virus vaccine, unspecified formulation Aby Bruner DO Work Phone: [facility] 12-21-2007 pneumococcal polysaccharide vaccine, 23 valent Aby Bruner DO Work Phone: [facility] Work Phone: 01-14-2007 influenza virus vaccine, unspecified formulation Aby Bruner DO Work Phone: [facility] Work Phone: 01-27-2006 influenza virus vaccine, unspecified formulation Aby Bruner DO Work Phone: [facility] 01-24-2005 influenza virus vaccine, unspecified formulation Aby Bruner DO Work Phone: [facility] Work Phone: 05-15-2002 tetanus and diphther ia toxoids, adsorbed, preservative free, for adult use (2 Lf of tetanus toxoid and 2 Lf of diphtheria toxoid) Aby Bruner DO Work Phone: [facility] Work Phone: NEGATED: Highlighted row has not occurred!01-12-2021 influenza, high-dose, quadrivalent vaccine (FLUZONE HIGH DOSE QUADRIVALENT) Aby Bruner DO Work Phone: [facility] Payers Date Payer Category Payer Medicare [id number] 2016 Unknown FLORENCIO PACHECOTHA ME DICARE SUPPLEMENT [id number] 2016-Present [phone] [address] [place] [id number] Indemnity [id number] 2016 Unknown FLORENCIO MATIAS ME DICARE SUPPLEMENT [id number] 2016-Present [phone] [address] Indemnity [id number] 2003 Medicare MEDICARE MEDICAR E A AND B [id number] 2003-Present [phone] [place] [address] Medicare [id number] 2003 Medicare MEDICARE MEDICAR E A AND B [id number] 2003-Present [phone] [place] [address] Medicare [id number] 2003 Medicare [id number] Social History Date Type Detail Facility Start: 01-02-2022 Tobacco smoking stat [facility] Never smoked tobacco [facility] Start: 06-05-2021 End: 02-11-2023 Alcohol intake Current non-drinker of alcohol (finding) [facility] Start: 01-23-2020 End: 01-18-2021 History SDOH Alcohol Frequency 1 [facility] Start: 01-23-2020 History SDOH Social Connections Phone 5 [facility] Start: 01-23-2020 History SDOH Social Connections Get Together 98 [facility] Start: 01-23-2020 History SDOH Social Connections Living 3 [facility] Start: 01-23-2020 End: 01-18-2021 History SDOH Stress 2 [facility] Start: 01-23-2020 Education 17 [facility] Start: 1935 Sex Assigned At Female [facility] Work Phone: Start: 05-20-2021 End: 01-21-2022 Exposure to SARS-CoV-2 (event) Not sure [facility] Start: 06-09-2021 End: 08-08-2021 Exposure to SARS-CoV-2 (event) Unable to assess [facility] Work Phone: Start: 01-02-2022 Tobacco use and exposure Smokeless tobacco non-user [facility] Start: 01-23-2020 End: 07-24-2022 History of Social function [facility] Start: 01-23-2020 End: 07-24-2022 Social connection and isolation panel [facility] How often do you get together with friends or relatives? Patient refused [facility] Are you now , , , , never or living with a partner? [facility] How often to you hav e a drink containing alcohol? Never [facility] Do you feel stress - tense, restless, nervous, or anxious, or unable to sleep at night because your mind is troubled all the time - these days [OSQ] Only a little [facility] (I/We) worried wheth er (my/our) food would run out before (I/we) got money to buy more. Never true [facility] In the past 12 month s, was there a time when you were not able to pay the mortgage or rent on time? No [facility] Start: 06-06-2018 Gender identity Identifies as female gender (finding) [facility] Start: 07-28-2019 Sexual orientation Heterosexual (anna lama) [facility] Work Phone: Clinical Notes 01-10-2021 to 04-30-2023 Telephone Encounter - Nicole Childs Ma - 04/30/2023 7:32 AM ESTTelephone Encounter - Thalia Monterroso MD - 04/29/2023 4:07 PM ESTTelephone Encounter - Thalia Monterroso MD - 04/29/2023 4:05 PM EST Note Date & Type Note Facility 04-30-2023 Miscellaneous Notes Faxed to [facility] Additionally, I would like her to please start hydroxychloroquine 200 mg BID. Thalia Monterroso MD Please have her do the following taper: 15 mg daily x 1 month 12.5 mg daily x 1 month 10 mg daily x 1 month. Then plan to lower dose down by 1 mg every month. If she has difficulty with this taper then we have to consider another diagnosis. Thalia Monterroso MD Spoke with [facility] She is still having all over generalized pain, worse at night. The patient stated the pain is so bad she wants to cry. [facility] said she is utilizing the prn tramadol. Now taking tramadol 1 tab three times a day. Still on prednisone 12.5 mg daily If you need bloodwork done they do draw labs at her facility Please advise. [facility] said we can fax response to [phone] [facility] from [facility] called to advise that pt's pain has gotten worse while on the prednisone taper. Advised that dosage is now at 12.5 and pt is in a lot of pain. Callback: [phone] DHEERAJ Ponce documented in this encounter [facility] 04-25-2023 Miscellaneous Notes Faxed response to [facility] Continue prednisone 12.5 mg daily. Sometimes pain can increase for 1-2 days following a dose decrease. If pain persists for 5 days let me know. Thalia Monterroso MD [facility] from [facility] called. Patient was complaining of all over generalized pain, especially at night. She has been on a weaning dose of prednisone. Was on 15 mg daily, yesterday start 12.5 mg daily. Patient also takes tramadol 1 tab twice a day and has an option for a prn 3rd dose which she has not been utilizing Nurse does note that patient seems to be able to do her normal activities during the day We can fax response and or call documented in this encounter [facility] 02-11-2023 History of Present illness Narrative Chief [...] for both; strong for ER, moderate for DC). HER-2 3+. Had been using Estrace cream [...] Wire Localization: Wire absent Lymph Node Sampling: [place] lymph node(s) Tumor size: Size of largest [...] tamoxifen therapy. S/p underwent hysteroscopy D&C at [facility] on 08/23/[address] Hebert. Path. Benign. Pt. resides at [facility]. Pt. here today with her daughter. Last [...] 1.00 - 4.00 k/uL 1.57 1.06 1.54 [place]% % 11.2 11.2 9.7 Abs [place] <0.87 k/uL 0.68 0.59 0.68 Eosin% % [...] V10.3, ICD10: Z85.3 (primary diagnosis) pT1b pN0(sln) ER/DC positive, HER2 positive invasive ductal carcinoma the [...] Angelic Arreola APRN.INGE documented in this encounter [facility] 12-19-2022 Note HNO ID: [id number] Author: Sherice Persaud, DO Service: ? Author Type: Physician Type: Progress Notes Filed: 12/19/2022 2:17 PM Note Text: Christian Landrum is here today at request of Stella Preciado PA-C specifically for consultation of my opinion in regards to the chief complaint listed below. Correspondence will be shared today via the [facility] electronic health record or through regular mail, [...] thumb [facility]MC Informed Consent Consent Obtained: Written [place] Protocol A moment to CARE was completed. [...] instructions. Sherice Persaud DO Sports Medicine Physician [facility] 12-19-2022 Miscellaneous Notes Faxed patient's last office visit note to facility, [facility], per MM. documented in this encounter [facility] 12-17-2022 Note HNO ID: [id number] Author: Vania Horan RN Service: ? Author Type: Registered Nurse Type: Progress Notes Filed: 12/17/2022 9:55 AM Note Text: Patient is here for IVAD port flush per [facility] protocol. IVAD is located in right upper chest. Site cleansed with Chloraprep IVAD accessed with a #20 gauge 3/4 non-coring Gripper needle Blood Return: Good Flushed with: 20 ml Normal Saline and 5 ml Heparin Lock Flush Non-coring needle removed. Paper tape applied to puncture site. Port site negative for redness, edema or tenderness. Patient tolerated procedure well. [facility] 12-17-2022 History of Present illness Narrative Patient is here for IVAD port flush per [facility] protocol. IVAD is located in right upper chest. Site cleansed with Chloraprep IVAD accessed with a #20 gauge 3/4 non-coring Gripper needle Blood Return: Good Flushed with: 20 ml Normal Saline and 5 ml Heparin Lock Flush Non-coring needle removed. Paper tape applied to puncture site. Port site negative for redness, edema or tenderness. Patient tolerated procedure well. documented in this encounter [facility] 12-13-2022 Note HNO ID: [id number] Author: Juliet Morgan APRN.CNP Service: ? Author Type: Nurse Practitioner Type: Progress Notes Filed: 12/13/2022 3:12 PM Note Text: [facility] Luis Miguel Kolb Department of Cardiovascular Medicine SECTION OF CLINICAL CARDIOLOGY OUTPATIENT VISIT DATE December 13, 2022 OUTPATIENT VISIT TYPE ESTABLISHED PRIMARY CARE PHYSICIAN: Ariel Sainz [address] [place] [address] REFERRING PHYSICIAN: Jerrica Beltran [address] [facility] [address] CHIEF COMPLAINT: Follow Up ([place] denies cardiac concerns/Daughter, Eloisa, concerned about Lasix [...] if standing for long time, like at [facility] but resolves quickly Has sleep apnea with new mask and now sleeps better. She overall feels better than she has in a long time. Does water therapy at her assisted living facility. [place] [facility] She denies shortness of breath, chest pain, [...] COMPLETE Right 08/28/ (more content not included)... [facility] 12-13-2022 Instructions Juliet Morgan APRN.CNP - 12/13/2022 2:50 PM EDT PLAN AND RECOMMENDATIONS: No change in medications Follow up Dr Ibarra in 6 months. CONTACT INFORMATION: Juliet Morgan APRN.CNP Cardiology Nurse Practitioner Section of Regional Cardiology [place] Dept of Cardiovascular Medicine [facility] [address] [place] [address] Office Office documented in this encounter [facility] 12-13-2022 History of Present illness Narrative Images from the original note were not included. [facility] Department of Cardiovascular Medicine SECTION OF CLINICAL CARDIOLOGY OUTPATIENT VISIT DATE December 13, 2022 OUTPATIENT VISIT TYPE ESTABLISHED PRIMARY CARE PHYSICIAN: Ariel Sainz [address] [place] [address] REFERRING PHYSICIAN: Jerrica Beltran [address] [place] [address] CHIEF COMPLAINT: Follow Up ([place] denies cardiac concerns/Daughter, Eloisa, concerned about Lasix [...] if standing for long time, like at [facility] but resolves quickly Has sleep apnea with new mask and now sleeps better. She overall feels better than she has in a long time. Does water therapy at her assisted living facility. [facility] She denies shortness of breath, chest pain, [...] benign mass on liver PMR (polymyalgia rheumatica) [facility] 2012 Pure hypercholesterolemia Snoring Squamous [...] Age of Onset other ( age 60 OR) Mother hypertension and TB other (pancreatic cancer) [...] Take 1 tablet by mouth once daily. epockfg-llzjbbelh-suxslvy D3 500 mg-5 mcg (200 unit) per [...] SINUS RHYTHM Confirmed by OBDULIA BERMEO DO ([id number]) on 10/08/2022 3:19:16 PM There were no [...] Cardiology Nurse Practitioner Section of Regional Cardiology [facility] Dept of Cardiovascular Medicine [facility] [address] [place] [address] Office Office documented in this encounter [facility] 11-26-2022 Miscellaneous Notes Sending message to [...] we assist patient with scheduling, contact is Shanti Eloisa. Order entered for US guided injection right CMC joint, can we assist patient with scheduling, contact is Shanti Eloisa. documented in this encounter [facility] 11-25-2022 Note HNO ID: [id number] Author: Page Ruiz RT(R) Service: ? Author [...] RT Nithin(R) November 25, 2022 2:30 PM [facility] 11-25-2022 Note HNO ID: [id number] Author: Stella Preciado PA-C Service: ? Author Type: Physician Dehydrogenation Supervisor Type: Progress Notes Filed: 11/26/2022 9:20 AM Note Text: Large Joint Arthro/Inj: bilateral knee joints Informed Consent Consent Obtained: Verbal [place] Protocol A moment to CARE was completed. [...] instruments, equipment or retained foreign bodies applicable. [facility] 11-25-2022 Note HNO ID: [id number] Author: Fozia Bedolla RN Service: ? Author [...] Dull, Sharp Duration Amount of Time: (Ongoing) [facility] 11-25-2022 Instructions Stella Preciado PA-C - 11/25/2022 3:27 PM EDT Patient [...] comfortable doing so. documented in this encounter [facility] 11-25-2022 History of Present illness Narrative [...] 2022 2:30 PM documented in this encounter [facility] 11-25-2022 History of Present illness Narrative Associated Order(s): Large Joint Arthro/Inj: bilateral knee joints Post-Procedure Diagnose(s): Primary osteoarthritis of both knees Large Joint Arthro/Inj: bilateral knee joints Informed Consent Consent Obtained: Verbal [place] Protocol A moment to CARE was completed. [...] of Time: (Ongoing) documented in this encounter [facility] 11-14-2022 Miscellaneous Notes Left VM on patient's home and mobile lines cancelling the patient's 12/11/22 cardiology appointment. Instructed the patient to call the office to reschedule. My Chart message sent. documented in this encounter [facility] 11-11-2022 Note HNO ID: [id number] Author: Michelle Llanos MA Service: ? 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 She advises that patient is at [facility] in [place] and is under the care of the physicians on site. She is no longer seeing Dr Sainz for her care. She does not need to establish patient with new PCP at [facility] as Dr Sainz is no longer seeing [...] Llanos MA November 11, 2022 4:42 PM [facility] 11-11-2022 Note Patient Outreach (CHARLES TNAV) ---- CHRISTIAN LANDRUM ([id number]) 1935 F Date Time Provider Department 11/11/22 MICHELLE LLANOS During your visit today, we recorded the following information about you: Michelle Llanos MA 11/11/2022 4:46 PM Signed POPULATION HEALTH NAVIGATION OUTREACH Action/I November 11, 2022 4:42 PM HCC Gaps K74.60 - Cirrhosis of liver with ascites (HCC) - [id number] Last Billed 08/08/2021 M05.769 - 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 She advises that patient is at [facility] in [place] and is under the care of the physicians on site. She is no longer seeing Dr Sainz for her care. She does not need to establish patient with new PCP at [facility] as Dr Sainz is no longer seeing [...] Visit: Population Health Navigation Outreach [[id number]] Cmt: [facility] Prescriptions as of 11/11/2022 - [...] 1 tablet by mouth once daily. - ukkexwt-jnspyuipw-ttwpkyz D3 500 mg-5 mcg (200 unit) per [...] daily. - ceti (more content not included)... [facility] 09-24-2022 Note HNO ID: [id number] Author: Andria Joyner RN Service: ? Author Type: Registered Nurse Type: Progress Notes Filed: 09/24/2022 2:41 PM Note Text: Patient is here for IVAD port flush per [facility] protocol. IVAD is located in right upper chest. Site cleansed with Chloraprep IVAD accessed with a #20 gauge 3/4 non-coring Gripper needle Blood Return: Good Flushed with: 20 ml Normal Saline and 5 ml Heparin Lock Flush Non-coring needle removed. Paper tape applied to puncture site. Port site negative for redness, edema or tenderness. Patient tolerated procedure well. Andria Joyner RN [facility] 09-24-2022 History of Present illness Narrative Patient is here for IVAD port flush per [facility] protocol. IVAD is located in right upper [...] Andria Joyner RN documented in this encounter [facility] 09-20-2022 Miscellaneous Notes Reviewed labs with Dr. Ibarra. Recommended pt to hold Eliquis. Would like pt to see Dr. Shields to discuss Watchmen Device. Reviewed recommendations to KASANDRA Amin an Nurse Milagros at [facility]. Eloisa stated she will review Watchman recommendations to pt. Will contact us if she decided to pursue. Jie from [facility] ([phone]) in reg to Ms Tristin Landrum. CBC [...] risk and aware of this off anticoagulation. ABB4LP9-RDRr score 4 or approximately 7% annual stroke risk and has-bled score is 2 or 4% bleeding risk - Currently on metoprolol - patient and daughter wish to trial DOAC now Iron deficiency anemia Doing well with iron infusions with stable Hgb documented in this encounter [facility] 09-05-2022 Note HNO ID: [id number] Author: Cecilio Ibarra, DO Service: ? Author Type: Physician Type: Progress Notes Filed: 09/05/2022 10:07 AM Note Text: [facility] Luis Miguel Kolb Department of Cardiovascular Medicine SECTION OF CLINICAL CARDIOLOGY OUTPATIENT VISIT DATE April 09, 2022 OUTPATIENT VISIT TYPE ESTABLISHED Patient Name: Christian Landrum : 1935 PRIMARY CARE PHYSICIAN: Ariel Sainz MD TASHIA 09/05/21 CHIEF COMPLAINT: No chief complaint on [...] risk and aware of this off anticoagulation. XVC3SP0-DWUm score 4 or approximately 7% annual stroke [...] ) Wt 78 (more content not included)... [facility] 09-05-2022 History of Present illness Narrative Images from the original note were not included. [facility] Luis Miguel Kolb Department of Cardiovascular Medicine SECTION OF CLINICAL CARDIOLOGY OUTPATIENT VISIT DATE April 09, 2022 OUTPATIENT VISIT TYPE ESTABLISHED Patient Name: Christian Landrum : 1935 PRIMARY CARE PHYSICIAN: Ariel Sainz MD [facility] 09/05/21 CHIEF COMPLAINT: No chief complaint on [...] risk and aware of this off anticoagulation. KJD2IX4-UMIx score 4 or approximately 7% annual stroke [...] Age of Onset other ( age 60 OR) Mother hypertension and TB other (pancreatic cancer) [...] Take 1 tablet by mouth once daily. pqoczke-lfluyqdie-uejijyi D3 500 mg-5 mcg (200 unit) per [...] for this visit. documented in this encounter [facility] 08-27-2022 Note HNO ID: [id number] Author: Angelic Arreola APRN.PAINT PREPPER Service: ? Author Type: Nurse Practitioner Type: [...] for both; strong for ER, moderate for DC). HER-2 3+. Had been using Estrace cream [...] Wire Localization: Wire absent Lymph Node Sampling: [place] lymph node(s) Tumor size: Size of largest [...] tamoxifen therapy. S/p underwent hysteroscopy DANDC at [facility] on 08/23/[address] Hebert. Path. Benign. Pt. now resides at [facility]. Pt. here today with her daughter. Pt. [...] of methotrexate En (more content not included)... [facility] 08-27-2022 History of Present illness Narrative [...] for both; strong for ER, moderate for DC). HER-2 3+. Had been using Estrace cream [...] Wire Localization: Wire absent Lymph Node Sampling: [place] lymph node(s) Tumor size: Size of largest [...] tamoxifen therapy. S/p underwent hysteroscopy D&C at [facility] on 08/23/[address] Hebert. Path. Benign. Pt. now resides at [facility]. Pt. here today with her daughter. Pt. [...] Lymph 1.00 - 4.00 k/uL 1.35 1.57 [place]% % 11.0 11.2 Abs [place] <0.87 k/uL 0.54 0.68 Eosin% % 1.6 [...] V10.3, ICD10: Z85.3 (primary diagnosis) pT1b pN0(sln) ER/DC positive, HER2 positive invasive ductal carcinoma the [...] Angelic Arreola APRN.INGE documented in this encounter [facility] 08-09-2022 Note HNO ID: [id number] Author: Vania Horan RN Service: ? Author Type: Registered Nurse Type: Progress Notes Filed: 08/09/2022 2:03 PM Note Text: Patient is here for IVAD port flush/blood draw per [facility] protocol. IVAD is located in left upper [...] edema or tenderness. Patient tolerated procedure well. [facility] 06-11-2022 Miscellaneous Notes Pt. Daughter notified of results, voiced understanding. Sadie Lin LPN Please inform pts. daughter no concerning finding on xray (sorry it took awhile for the result). Follow up as scheduled unless pain persists. Thank you. Angelic Arreola APRN.CNP documented in this encounter [facility] 06-05-2022 Note HNO ID: [id number] Author: RT Nithin(Palma) Service: ? Author Type: Technologist Type: Progress [...] IV DATA: Not applicable SIGNED BY: RT Nithin(Palma) June 05, 2022 12:37 PM [facility] 06-05-2022 Note HNO ID: [id number] Author: Angelic Arreola APRN.CNP Service: ? Author [...] for both; strong for ER, moderate for DC). HER-2 3+. Had been using Estrace cream [...] Wire Localization: Wire absent Lymph Node Sampling: [place] lymph node(s) Tumor size: Size of largest [...] tamoxifen therapy. S/p underwent hysteroscopy DANDC at [facility] on 08/23/[address] Hebert. Path. Benign. Pt. now resides at [facility]. Pt. here today with her daughter. Pt. [...] as needed Endo:denies (more content not included)... [facility] 06-05-2022 History of Present illness Narrative [...] 2022 12:37 PM documented in this encounter [facility] 06-05-2022 History of Present illness Narrative [...] for both; strong for ER, moderate for DC). HER-2 3+. Had been using Estrace cream [...] Wire Localization: Wire absent Lymph Node Sampling: [place] lymph node(s) Tumor size: Size of largest [...] tamoxifen therapy. S/p underwent hysteroscopy D&C at [facility] on 08/23/[address] Hebert. Path. Benign. Pt. now resides at [facility]. Pt. here today with her daughter. Pt. 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 Past medical [...] V10.3, ICD10: Z85.3 (primary diagnosis) pT1b pN0(sln) ER/DC positive, HER2 positive invasive ductal carcinoma the [...] Angelic Arreola APRN.INGE documented in this encounter [facility] 05-30-2022 Miscellaneous Notes Spoke with Jie at [facility] and she stated that appointments need made with the patient's family as they are the ones that transport the patient. Spoke with patient's daughter, advising below, and scheduled May follow up as directed. Meredith Alonzo Left detailed message for Herminia with information below. I attempted to contact [facility], , they were unable to hear on their line. Unable to speak to anyone. I faxed this information to [phone]. Will attempt to contact again later. PSS- please contact [facility] to schedule as directed below. Lisa Morales LPN Noted. Monitor R lateral chest. If no improvement then OV in one week. OV/CBC/iron studies early July. Thank you. Angelic Arreola APRN.PAINT PREPPER Last OV 03/06/2022. Patient c/o right sided [...] follow here? Lisa Morales LPN Herminia from [facility] called stating patient is having right side pain, rib area. She is asking if imaging orders could be sent or if patient needs to be seen . She states concern due to hx breast cancer. Please call Herminia at [phone] documented in this encounter [facility] 05-27-2022 Note HNO ID: [id number] Author: Stella Preciado PA-C Service: ? Author Type: Physician Dehydrogenation Supervisor Type: Progress Notes Filed: 05/27/2022 2:53 PM Note Text: Stella Preciado PA-C Department of Orthopaedics Orthopaedics [address] [place] [id number] Dept: [phone] Dept May 27, 2022 CHIEF COMPLAINT: Follow [...] knee joints Informed Consent Consent Obtained: Verbal [place] Protocol A moment to CARE was completed. [...] every 6 hours as needed for pain. monmvxv-mfgqazpfj-okslrqp D3 500 mg-5 mcg (200 unit) per [...] [Lisinopril] This note was partially generated using Tongal voice recognition system, and there may be some incorrect words, spellings, and punctuation t (more content not included)... [facility] 05-27-2022 Note HNO ID: [id number] Author: Kandace Joyner RN Service: ? Author [...] Patient requesting injection in B/L knees today. [facility] 05-17-2022 Note HNO ID: [id number] Author: Loy Herring RN Service: ? Author Type: Registered Nurse Type: Progress Notes Filed: 05/17/2022 1:40 PM Note Text: See scanned docs for lab results from 05/06 collected in [facility]. [facility] 04-10-2022 Miscellaneous Notes Daughter called stating [...] Starla Son RN documented in this encounter [facility] 04-09-2022 Instructions Taty Perez APRN.PAINT PREPPER - 04/09/2022 3:08 PM EST We reviewed [...] day - please fax BP readings to [phone] I would like to know if your [...] diet is recommended documented in this encounter [facility] 04-09-2022 History of Present illness Narrative Images from the original note were not included. [facility] Luis Miguel Kolb Department of Cardiovascular Medicine [...] which included preparing to see the patient, yqgl-rl-kguv patient care, completing clinical documentation, performing a medically appropriate examination, counseling and educating the patient/family/caregiver, ordering medications, tests, or procedures, and communicating results to the patient/family/caregiver. Thank you very much for allowing me to assist in the care of Christian Landrum. Please do not hesitate to contact me if you have questions or concerns. Taty Perez APRN.[facility] Cardiology Nurse Practitioner Section of Regional Cardiology 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 Taty Perez APRN.INGE CURRENT MEDICATIONS: Current Outpatient Medications Medication [...] Take 1 tablet by mouth once daily. cnmrggh-hrwdiusag-qqzdokt D3 500 mg-5 mcg (200 unit) per tablet Take 1 tablet by mouth once daily. omeprazole (PRILOSEC) 40 mg capsule Take 1 capsule by mouth once daily. gabapentin (NEURONTIN) 600 mg tablet Take 0.5 tablets by mouth once daily. (Patient taking differently: Take 300 mg by mouth daily at bedtime.) No current facility-administered medications for this visit. documented in this encounter [facility] 04-08-2022 History of Present illness Narrative --- documented in this encounter [facility] 03-25-2022 Miscellaneous Notes Spoke with patients [...] transfusion on 03/05. A CBC done at [facility] on 03/07 Showed that the hemoglobin increased [...] Sal Bonilla DO documented in this encounter [facility] 03-22-2022 Miscellaneous Notes PT scheduled Thank you. Order filed. Sal Bonilla DO Dr. Bonilla- please file new CBC order. PSS- please schedule patient for a lab/port appointment for 03/22/2022 @ 1:30 CBC(?TX)/STREV* No need to notify patient's daughter, she is aware of date and time. Lisa Morales LPN documented in this encounter [facility] 03-12-2022 Miscellaneous Notes Called and spoke with pt's daughter and scheduled as directed Noted. Thank you. Sal Bonilla DO Spoke to Eloisa, she will bring pt in for a lab port draw and pick up truck driver hemoccult cards at the desk (labeled and at nurses station for pick up truck driver when she comes in).PSS please reach our to Eloisa and schedule her lab port. Eloisa states she is no longer on coumadin stopped about 2 months ago for issues with bleeding and getting positive occult tests on and off. She states pt has had a history of bowel resection and would not want any more surgery. Anneliese Garcia LPN Left message on [employer] phone to call me back to review [...] was restarted on this medication at the senior care. Her iron levels were low when measured [...] schedule. Meredith Alonzo documented in this encounter [facility] 03-06-2022 History of Present illness Narrative [...] for both; strong for ER, moderate for DC). HER-2 3+. Had been using Estrace cream [...] Wire Localization: Wire absent Lymph Node Sampling: [place] lymph node(s) Tumor size: Size of largest [...] tamoxifen therapy. S/p underwent hysteroscopy D&C at [facility] on 08/23/[address] Hebert. Path. Benign. Pt. now resides at [facility]. Labs have been monitored there. She received [...] Skin:denies rashes/lesions Heme:denies bleeding since visit with PANTOGRAPH OPERATOR The ROS is otherwise negative. Past medical [...] 174.3, V86.0, ICD10: C50.311, Z17.0 pT1b pN0(sln) ER/DC positive, HER2 positive invasive ductal carcinoma the [...] as necessary for today's visit. Angelic Arreola APRN.PAINT PREPPER documented in this encounter [facility] 02-05-2022 History of Present illness Narrative Patient is here for IVAD port flush per [facility] protocol. IVAD is located in right upper chest. Site cleansed with Chloraprep IVAD accessed with a #20 gauge 3/4 non-coring Gripper needle Blood Return: Good Flushed with: 20 ml Normal Saline and 5 ml Heparin Lock Flush Non-coring needle removed. Paper tape applied to puncture site. Port site negative for redness, edema or tenderness. Patient tolerated procedure well. documented in this encounter [facility] 01-21-2022 History of Present illness Narrative Associated Order(s): Large Joint Arthro/Inj: R knee joint Post-Procedure Diagnose(s): Primary osteoarthritis of both knees; Chronic pain of right knee Stella Preciado PA-C Department of Orthopaedics Orthopaedics [address] [facility] [address] Dept: [phone] Dept January 21, 2022 CHIEF COMPLAINT: Established Patient of the Left Knee, Established Patient of the Right Knee, and Last seen 8/26/21 S/P Left ring trigger finger release (09/14 [...] knee joint Informed Consent Consent Obtained: Verbal [place] Protocol A moment to CARE was completed. [...] knee osteoarthritis with interval progression as described. Flatbed Owner Operator: GRANT Transcribe Date/Time: Jul 09 2021 7:03P Dictated by : ALDEN AWAD MD This examination was interpreted and the report reviewed and electronically signed by: ALDEN AWAD MD on Jul 09 2021 7:06PM EST Results-Findings * * *Final Report* * * DATE OF EXAM: Jul 09 2021 6:16PM BECKY [id number] - XR KNEE 4V AP/PA/LAT/MERCH HEIDI / PROCEDURE REASON: Bone pain, knee [...] removed right APPENDECTOMY BIOPSY BREAST OPEN INCISIONAL 1979' left breast twice BREAST LEFT FINE NEEDLE [...] Take 1 tablet by mouth once daily. flpprvz-imqtpasby-wvfcvak D3 500 mg-5 mcg (200 unit) per [...] every Tue; 1 mg all other days (Patient not [...] anxiety) This note was partially generated using Tongal voice recognition system, and there may be some incorrect words, spellings, and punctuation that were not noted in checking the note before saving. Stella Preciado PA-C Patient presents with: Left Knee - [...] with patient today. documented in this encounter [facility] 01-02-2022 Note HNO ID: [id number] Author: Basilia Hernández MD Service: ? Author [...] stool Pain: no Abnormal Vaginal Discharge: no PANTOGRAPH OPERATOR HISTORY: Last Pap: Date:04/18/20 NIL; Last Mammogram: [...] Level: 4 - Moderate Basilia Hernández MD [facility] 01-02-2022 Instructions Basilia Hernández MD - 01/02/2022 2:08 PM EDT Follow up with Vikash Sylvester NP in 6 months or sooner as needed documented in this encounter [facility] 01-02-2022 History of Present illness Narrative [...] stool Pain: no Abnormal Vaginal Discharge: no PANTOGRAPH OPERATOR HISTORY: Last Pap: Date:04/18/20 NIL; Last Mammogram: [...] Basilia Hernández MD documented in this encounter [facility] 12-25-2021 Miscellaneous Notes Galina Castro RAG BOILER called regarding patient's Coumadin, has been having anemia and bloody stool. Asking if Coumadin can be held/stopped temporarily. Coumadin has been ordered by PCP, not cardiology office. Spoke with RAG BOILER, explained Dr. Ibarra was not managing patient's Coumadin. RAG BOILER stated patient is no longer seeing Dr. Sainz and has new PCP; requesting orders from Dr. Ibarra. Advised RAG BOILER to follow up with new PCP/physician managing Coumadin. Per Dr. Ibarra's notes, anemia has been chronic issue. documented in this encounter [facility] 11-13-2021 History of Present illness Narrative Patient is here for IVAD port flush per [facility] Clements protocol. IVAD is located in right upper chest. Site cleansed with Chloraprep IVAD accessed with a #20 gauge 3/4 non-coring Gripper needle Blood Return: Good Flushed with: 20 ml Normal Saline Non-coring needle removed. Paper tape applied to puncture site. Port site negative for redness, edema or tenderness. Patient tolerated procedure well. documented in this encounter [facility] 11-05-2021 Miscellaneous Notes noted PATIENT CALL [...] re-referred, if deemed appropriate. Maria A Camacho; Javon (Electrician Helper) Pharmacy Anticoagulation Clinic documented in this encounter [facility] 11-02-2021 Miscellaneous Notes Noted. An Ta APRN.CNP Patient daughter Gia returned call and said her mother is at [facility] and Dr Alejo Salcido is taking over [...] cbc next week. Thank you An Ta APRN.INGE Please place fax on providers desk when received. Thank you An Ta APRN.INGE Spoke with nurse from [facility] and they are faxing over the [...] Orders are being placed Received call from Maximus MRECADO with [facility]. Patient was admitted to facility today. Maximus asking for clarification on when patient should resume Coumadin and dosage as well as when next INR needs to be drawn. Maximus requests orders be faxed to [phone] or called to [phone]. Maximus requested updated medication list be faxed. Faxed per request. Please review and advise, Una Garcia RN Spoke to patient. She is staying with her daughter. She is currently off warfarin and waiting for call back from Dr. Sainz with instructions on when to resume. Called patient and left VM to call PAC at [phone]. Is she is Assisted Living facility? documented in this encounter [facility] 10-18-2021 Miscellaneous Notes Patient currently being seen in [facility] ER. Please get update from daughter on how patient is feeling, and if they heard back from [facility]. Thank you An Ta APRN.IGNE Patient daughter Eloisa calling mother woke up with fever 100.5 this morning. She was having body aches yesterday. She is scheduled for blood transfusion today at [facility] her hemoglobin is 6.5 and daughter has called transfusion center at [facility] and left message. Eloisa did home COVID test and mother was positive. documented in this encounter [facility] 10-17-2021 Miscellaneous Notes Christian Landrum was [...] Hgb, she is getting a transfusion at [facility]. She said the patient will be [...] get the type and cross done now. MariaA Khanna RN Spoke with patient about instructions and left message with daughter about instructions for blood transfusion. Patient is wanting to know instructions for coumadin since it is 2.1 now? Blood tranfusion orders faxed to [facility] Please review and advise. Nury Guerin LPN INR yesterday (10/16) was 2.1 via [employer]. We will have to transfuse 2 units of RBcs to patient Please get the forms for [facility] and inform patient of the same Called and stp- per Dr. Sainz pt to hold off on warfarin. Pt's Hgb was 6.5 today, will reach out to Dr. Sainz for clarification on resuming anticoag Tesha Arias PharmD documented in this encounter [facility] 10-17-2021 Miscellaneous Notes Soraya with [facility] Marge called and states pt is coming in for a cross and type. Identified pt with name and date of . Requested a copy of last H & H, faxed CBC to [phone]. Ramila Castro LPN documented in this encounter [facility] 10-15-2021 Miscellaneous Notes Patient daughter notified [...] this medication. Advice. 4. Moving pt to [facility] 10-22-21. Please advise daughter on cell phone or send a [employer] message Gia Ford ([facility] Ortho)on teams. documented in this encounter [facility] 10-15-2021 Miscellaneous Notes [facility] Ambulatory [facility]acy Anticoagulation Clinic Anticoagulation Episode Summary Anticoagulation Care Providers Provider Role Specialty Phone number Ariel Sainz MD [facility] Internal Medicine [phone] Christian Landrum is a 86 year old [...] instructions: 10/15: Hold; Otherwise 2 mg every Fri; 1 mg all other days Called and spoke to patient/caregiver Patient reports that she held her dose yesterday - advised patient to hold warfarin again today, and recheck INR tomorrow. Next INR check due on 10/16/2021 Patient verbalizes understanding of the plan. Vito Jay RPh Clinical Pharmacist, Pharmacy Anticoagulation Clinic Pharmacy Anticoagulation Clinic Pager: [phone]. documented in this encounter [facility] 10-11-2021 History of Present illness Narrative [...] removed with a cold snare. D&C at [facility] a month or two ago for uterine [...] Age of Onset other ( age 60 OR) Mother hypertension and TB other (pancreatic cancer) [...] symptomatic treatment as the need arises Jeancarlos Hooker MD October 11, 2021 documented in this encounter [facility] 09-26-2021 Note HNO ID: [id number] Author: Basilia Hernández MD Service: ? Author [...] UTIs, used to see Dr. Burris at [facility]. Prior colovesical fistula, s/p sigmoid [...] >=60 mL/min/1.73m? 79 Medical and Symptom History: PANTOGRAPH OPERATOR HISTORY: Last Pap: Date:04/18/20 NIL; Last Mammogram: [...] Date - ABDOMINAL SURGERY HX - APPENDECTOMY 1982 ovarian cyst at same time-one ovary removed right - APPENDECTOMY - BIOPSY BREAST OPEN INCISIONAL left breast twice - BREAST LEFT FINE NEEDLE ASPIRATION 1979' left breast - BREAST SURGERY HX - [...] 01/09/2021 - HYSTEROSCOPY (more content not included)... [facility] 09-26-2021 Instructions Basilia Hernández MD - 09/26/2021 2:57 PM EDT Follow up with Dr. Hernández in 3 months Schedule appointment with infectious disease Start Hiprex Continue vaginal estrogen Consider trying D-mannose Your doctor has placed a standing order for urine culture. When you have symptoms of a urine infection, go to a [facility] lab facility and submit a urine [...] any laboratory employee. documented in this encounter [facility] 09-26-2021 History of Present illness Narrative Female Pelvic Medicine & Reconstructive Surgery Consult CHIEF COMPLAINT: Napa J Smucker is a 86 year old female who presents for consultation requested by Dr. Mona Hebert MD for an opinion regarding Recurrent UTI, mixed stress and urgency urinary incontinence. HISTORY OF PRESENT ILLNESS: Pt and daughter here for visit. Reports long standing h/o recurrent UTIs, used to see Dr. Burris at [facility]. Prior colovesical fistula, s/p sigmoid [...] >=60 mL/min/1.73m 79 Medical and Symptom History: PANTOGRAPH OPERATOR HISTORY: Last Pap: Date:04/18/20 NIL; Last Mammogram: [...] UTI (lower urinary tract infection) 2012 frequent FAMILY HISTORY Problem Relation Age of Onset other ( age 59 OR) Mother hypertension and TB other (pancreatic cancer) [...] every Tu; 1 mg all other days diclofenac sodium [...] tablet by mouth twice daily with meals. qucjbcv-lhresuxwq-fzawiur D3 500 mg-5 mcg (200 unit) per [...] ROS obtained by others. Basilia Hernández MD Registered Public Surveyor offered: Patient accepts, visit chaperoned by Jane [...] Post Wall - Normal support Cervix / [place] - Normal support POP-Q: Prolapse Noted: No [...] Basilia Hernández MD documented in this encounter [facility] 09-19-2021 Miscellaneous Notes [employer] message sent for therapeutic INR. documented in this encounter [facility] 09-18-2021 History of Present illness Narrative [...] for both; strong for ER, moderate for DC). HER-2 3+. Had been using Estrace cream [...] Wire Localization: Wire absent Lymph Node Sampling: [place] lymph node(s) Tumor size: Size of largest [...] Dr. Das. [facility] end of June. Admitted to [facility] for UTI end of July. During that time her . S/p underwent hysteroscopy D&C at [facility] on 08/23/[address] Hebert. Path. Benign. 09/11/21-vaginal bleeding was seen by Dr. Hebert. Pt. participating in PT. Appetite: I've been eating. My sister has been here from [place]. Energy level: I sleep a lot. Denies [...] Skin:denies rashes/lesions Heme:denies bleeding since visit with PANTOGRAPH OPERATOR The ROS is otherwise negative. Past medical [...] 174.3, V86.0, ICD10: C50.311, Z17.0 pT1b pN0(sln) ER/DC positive, HER2 positive invasive ductal carcinoma the [...] Angelic Arreola APRN.INGE documented in this encounter [facility] 09-18-2021 Nurse Note Est. Pt. 6 month f/u Sadie Lin LPN documented in this encounter [facility] 09-12-2021 Miscellaneous Notes Stp - reviewed [...] warfarin. Patient wanted to call and let [facility] know. Patient can be reached at [phone]. Maria A Camacho ([employer]) Spoke to patient. She has not taken warfarin for past 5 days due to vaginal bleeding. She has a n appointment today with escalator service mechanic for cauterization. Advised she call PAC back after appt to let us know when she can resume warfarin. PT INR (no units) Date Value 06/06/2021 3.1 (biotel) 05/23/2021 2.5 (biotel) 03/15/2021 1.9 INR Home CoaguChek (no units) Date Value 09/10/2021 1.6 09/04/2021 2.0 08/22/2021 2.7 Nury Andres Pharmacist PATIENT CALL [employer] called call center regarding results and left message after hours 09/10/2021 at 7:30pm. Patient also called and left message (transferred from PSS line) stating that she is having some bleeding issues and hasn't taken warfarin for at least five days. Please see yesterdays FORENSIC MANAGER encounter as well. Received call from [employer] Remote INR for patient. Patient tested on 09/10/2021 with out of range INR result of 1.6. PT INR (no units) Date Value 06/06/2021 3.1 (biotel) 05/23/2021 2.5 (biotel) 03/15/2021 1.9 INR Home CoaguChek (no units) Date Value 09/10/2021 1.6 09/04/2021 2.0 08/22/2021 2.7 Patient can be reached at [phone]. Kevin Torres, Pharmacy Anticoagulation Clinic documented in this encounter [facility] 09-11-2021 History of Present illness Narrative [...] at age 51 due to ovarian tumor Manager [employer] History LMP: Postmenopausal Age at Menarche: Age at First : Age at Menopause: Manager [employer] History Comments: Sexual Activity: Not Currently; Male [...] benign mass on liver PMR (polymyalgia rheumatica) ([facility] 2012 Pure hypercholesterolemia Snoring Squamous [...] Age of Onset other ( age 60 OR) Mother hypertension and TB other (pancreatic cancer) [...] Take 1 tablet by mouth once daily. iiskjzz-vojxlpkcq-ezijrpe D3 500 mg-5 mcg (200 unit) per [...] GENERAL: pleasant, female in no apparent distress PANTOGRAPH OPERATOR: normal external genitalia, no blood present. Vagina [...] Mona Hebert MD documented in this encounter [facility] 09-10-2021 Miscellaneous Notes Appointment given. Juliet [...] the bleeding and let us know. Juliet Cuevas RN How much bleeding? Enough they are concerned? I can see her and see if we can cauterize it. Urogyn is just fine. Thanks. Juan M Davis MD Spoke with daughter. She has an appointment with Uro/Manager [employer], Dr. Hernández on 09/26. Is this ok [...] Mona Hebert MD documented in this encounter [facility] 09-07-2021 Miscellaneous Notes Noted. Please let us know if they need anything else from us. Thank you An Ta APRN.INGE Sheryl with [facility] called and reports Pt is thinking of coming and living in their Assisted Living facilities. Sent Face sheet and last OV notes to fax # [phone]. documented in this encounter [facility] 09-05-2021 History of Present illness Narrative Images from the original note were not included. [facility] Obdulia [...] ordered and seen for telephone visit by WARD ASSISTANT 04/19/21. MPI showed no evidence of ischemia or infarction. [facility] [facility] and in July 2021 in [place] both for UTI and fever. She continues [...] 2007, S/P L-sided simple mastectomy - Recurrence 2016 with R-sided mastectomy CONCLUSION: She is doing [...] FACC, FCCP, FACOI documented in this encounter [facility] 09-05-2021 Miscellaneous Notes [employer] message sent for INR therapeutic range. documented in this encounter [facility] 08-31-2021 Miscellaneous Notes Please see pt's mychart message and pended order below. Please advise. Kamila Bentley LPN documented in this encounter [facility] 08-30-2021 History of Present illness Narrative [...] Menarche: 12; Age at 1st : 26; [employer] History LMP: Postmenopausal Age at Menarche: Age at First : Age at Menopause: [employer] History Comments: Sexual Activity: Not Currently; Male [...] benign mass on liver PMR (polymyalgia rheumatica) [facility] 2012 Pure hypercholesterolemia Snoring Squamous [...] Age of Onset other ( age 60 OR) Mother hypertension and TB other (pancreatic cancer) [...] Take 1 tablet by mouth once daily. jvfyucn-mzhjnnvcd-ghzgvco D3 500 mg-5 mcg (200 unit) per [...] Mona Hebert MD documented in this encounter [facility] 08-28-2021 History of Present illness Narrative [...] 50+ Menarche: 12; Age at 1st : [employer] History LMP: Postmenopausal Age at Menarche: Age at First : Age at Menopause: [employer] History Comments: Sexual Activity: Not Currently; Male [...] Age of Onset other ( age 60 OR) Mother hypertension and TB other (pancreatic cancer) [...] Take 1 tablet by mouth once daily. lqibopl-bbtcqolma-qnrjarn D3 500 mg-5 mcg (200 unit) per [...] every Tu; 1 mg all other days diclofenac sodium [...] external genitalia normal, normal Bartholin's glands, urethra, [place]'s glands, no vulvar lesions, good vaginal support, [...] Mona Hebert MD documented in this encounter [facility] 08-26-2021 History of Present illness Narrative Patient underwent hysteroscopy D&C at [facility] on 08/23/2021 without complications. She was discharged home with routine instructions and follow-up. Pathology is pending. No discrete polyp visualized. Mona Hebert MD documented in this encounter [facility] 08-22-2021 Miscellaneous Notes [facility] Ambulatory Pharmacy Anticoagulation Clinic Anticoagulation Episode Summary Anticoagulation Care Providers Provider Role Specialty Phone number Ariel Sainz MD [facility] Internal Medicine [phone] Christian Landrum is a 86 year old [...] * Unknown Zestril [Lisinopril] Indication for Warfarin: long-term (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 anticoagulants Paroxysmal atrial fibrillation [...] Pharmacy Anticoagulation Clinic Pharmacy Antico[facility] Clinic Pager: [phone] . documented in this encounter [facility] 08-17-2021 Miscellaneous Notes [facility]ticoagulation Clinic Anticoagulation Episode Summary Anticoagulation Care Providers Provider Role Specialty Phone number Ariel Sainz MD [facility] Internal Medicine [phone] Christian Landrum is a 86 year old [...] * Unknown Zestril [Lisinopril] Indication for Warfarin: long-term (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 anticoagulants Paroxysmal atrial fibrillation (hcc) Anticoagulation Episode Summary Current INR goal: 2.0-3.0 Assessment: INR result of 2.6 is therapeutic Plan: Called and spoke to patient/caregiver Advised patient to continue current weekly dose Next home INR check scheduled on 08/22/2021 Patient is having vaginal bleeding, is scheduled for d&c with polypectomy on 08/23; was advised by PANTOGRAPH OPERATOR that warfarin isn't usually held for the procedure Advised to test INR the day prior to ensure it isn't elevated Patient verbalizes understanding of the plan. Patient denies need for refills. Corinna Arenas RPh Clinical Pharmacist, Pharmacy Anticoagulation Clinic Pharmacy Anticoagulation Clinic Pager: [phone] . documented in this encounter [facility] 08-16-2021 Miscellaneous Notes Patient is going to check with her daughter to see if she will be able to have her surgery on 08/23/2021 Patient notified. 2 week Post Op scheduled. Juliet Cuevas RN Left message to call office. Patient is scheduled at [facility] for surgery on 08/29/2021 @ 7:30 am. [facility] will call with arrival time.Phone PAT is 08/23/2021 8:00 am. Patient needs 2 week post-op documented in this encounter [facility] 08-15-2021 History and physical note Pre-Op [...] by mouth once daily. 90 tablet 3 dmgbrie-mfzbpuxtl-rjeizgm D3 500 mg-5 mcg (200 unit) per [...] Age of Onset other ( age 60 OR) Mother hypertension and TB other (pancreatic cancer) [...] Mona Hebert M.D. 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 arzkxmr-ulksomtan-qbxrade D3 500 mg-5 mcg (200 unit) per [...] one but not sure this is satisfactory terminal clerk. Use vaginal estrogne 2-3 times a week Patient is likely going to need a cholecystectomy but her surgeon wanted her to have the hysteroscopy D&C and the pathology returned on that before she proceeded with the more invasive cholecystectomy. Medical Decision Making Mona Hebert MD documented in this encounter [facility] 08-15-2021 Miscellaneous Notes Patient admitted to hospital. Nitrofurantion discontinued. An Ta APRN.CNP documented in this encounter [facility] 08-14-2021 Miscellaneous Notes [facility] Ambulatory Pharmacy Anticoagulation Clinic Anticoagulation Episode Summary Anticoagulation Care Providers Provider Role Specialty Phone number Ariel Sainz MD [facility] Internal Medicine [phone] Christian Landrum is a 86 year old [...] Pharmacy Anticoagulation Clinic Pharmacy Anticoagulation Clinic Pager: [phone] . documented in this encounter [facility] 08-12-2021 Miscellaneous Notes Reason for Call: [...] Outcome: Daughter will drive her mother to [facility]. Reason for Disposition [1] Unable to urinate (or only a few drops) > 4 hours AND [2] bladder feels very full (e.g., palpable bladder or strong urge to urinate) Protocols used: URINE - BLOOD IN-ADULT- documented in this encounter [facility] 08-10-2021 Miscellaneous Notes Pt called and is notified of providers message and instructions. Pt voices understanding, states the next time she can get a ride in she will get it done. Maria A Khanna RN Please call patient and relay below information. Urine culture reordered. Thank you An Ta APRN.CNP Spoke with Pam in lab who spoke with [facility] lab,[facility] was having issues with those orders site wide and orders were cancelled and samples threw out. Patient will need to have new sample collected if still having symptoms. ----- Message from An Ta APRN.CNP sent at 08/10/2021 3:45 PM EDT ----- Please call lab to clarify culture. Was showing in process and now shows as canceled. Thank you An Ta APRN.CNP documented in this encounter [facility] 08-08-2021 History of Present illness Narrative CC: Patient presents with: Recheck: Hosp follow up, HPI [place] Gabriella Landrum is a 86 year old female who presents today for hospital follow-up with daughter who drove her to appointment. Facility: [facility] [address] [place] Date of visit: 07/06/21 - 07/12/21 Reason [...] polyp is addressed and she sees her unit aide tech for her cirrhosis. Post discharge she spent 2 weks for OT and PT at [facility] where is currently on hospice. [...] Take 1 tablet by mouth once daily. sixanqt-wwhwsmuhe-uvdcrvr D3 500 mg-5 mcg (200 unit) per [...] Age of Onset other ( age 60 OR) Mother hypertension and TB other (pancreatic cancer) [...] with more than 50% of the total sdmd-ta-rqwx time of the visit in counseling / coordination of care. Prescription instructions reviewed with patient as applicable. Potential red flag symptoms discussed with the patient. Reviewed appropriate action plan to take if red flag symptoms occur. Patient agreeable to treatment plan. An Ta APRN.CNP documented in this encounter [facility] 07-31-2021 Miscellaneous Notes [facility] Ambulatory Pharmacy Anticoagulation Clinic Anticoagulation Episode Summary Anticoagulation Care Providers Provider Role Specialty Phone number Ariel Sainz MD Responsible Internal Medicine [phone] Christian Landrum is a 86 year old [...] current weekly dose. Patient was discharge from SNF on 07/27 on 2mg Tu/1 mg all other days Next home INR check scheduled on 08/14/2021 Patient verbalizes understanding of the plan. Nury Andres RPh Clinical Pharmacist, Pharmacy Anticoagulation Clinic Pharmacy Anticoagulation Clinic Pager: [phone] . documented in this encounter [facility] 07-27-2021 Miscellaneous Notes [facility] called and is notified of providers message. She voices understanding. Maria A Khanna RN Provider agrees to follow. Thank you An Ta APRN.INGE Ricky Brown [facility], reports patient is being discharged from [facility] tomorrow with orders for PT & OT. Asking if pcp agrees to follow? Asking for reply today, as they plan to see patient on Friday. [phone] documented in this encounter [facility] 07-24-2021 Miscellaneous Notes LVM with patient and sent msg. Appointment with [facility] on 07/27 needs rescheduled first available. Appt has been cancelled. documented in this encounter [facility] 07-20-2021 Miscellaneous Notes Left detailed message on identified voicemail. Juliet Cuevas RN It would be ok to start vaginal estrogen. This may help w/ UTI prevention as well. Mona Hebert MD Patient calling with update. She was originally scheduled 07/10/21 to discuss D&C, polypectomy more, but she ended up at [facility] last month for a week d/t multiple medical problems one of them a UTI. Calling today because she is starting with urinary frequency again and worsening vaginal dryness. She has not used estrace cream since 02/2021 sometime. Offered appointment today, but patient is still at [facility] for rehab. Advised to speak to nurse [...] Inge Salter RN documented in this encounter [facility] 07-18-2021 Miscellaneous Notes Patient placed on [facility] list for follow up. Letty Guillory RN Pharmacy Anticoagulation Clinic INR was due today. Reviewed notes and found pt was recently hospitalized and discharged to SNF. Will forward to PAC team to f/u. documented in this encounter [facility] documented as of this encounter (statuses as of 07/11/2021) [facility] History of Past illness Narrative* Problem Noted Date Resolved Date Dysuria 07/06/2021 07/08/2021 Obesity, Class I, BMI 30-34.9 01/12/2021 GI bleed 01/12/2021 01/14/2021 Acute blood loss anemia 01/12/2021 01/15/20 21 LLQ pain 09/05/2017 04/09/2021 Overview: Added automatically from request for surgery [id number] 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, estrogen receptor positive 06/03/2017 07/06/2021 Personal history of breast cancer 12/18/2016 04/09/2021 Overview: Added automatically from request for surgery [id number] Permanent atrial fibrillation 12/26/2015 Diverticulitis of large [...] of this encounter (statuses as of 07/16/2021) [facility] History of Past illness Narrative* Problem Noted Date Resolved Date Dysuria 07/06/2021 07/08/2021 Obesity, Class I, BMI 30-34.9 01/12/2021 GI bleed 01/12/2021 01/14/2021 Acute blood loss anemia 01/12/2021 01/15/20 21 LLQ pain 09/05/2017 04/09/2021 Overview: Added automatically from request for surgery [id number] 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, estrogen receptor positive 06/03/2017 07/06/2021 Personal history of breast cancer 12/18/2016 04/09/2021 Overview: Added automatically from request for surgery [id number] Permanent atrial fibrillation 12/26/2015 Diverticulitis of large [...] of this encounter (statuses as of 07/18/2021) [facility] History of Past illness Narrative* Problem Noted Date Resolved Date Dysuria 07/06/2021 07/08/2021 Obesity, Class I, BMI 30-34.9 01/12/2021 GI bleed 01/12/2021 01/14/2021 Acute blood loss anemia 01/12/2021 01/15/20 21 LLQ pain 09/05/2017 04/09/2021 Overview: Added automatically from request for surgery [id number] 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, estrogen receptor positive 06/03/2017 07/06/2021 Personal history of breast cancer 12/18/2016 04/09/2021 Overview: Added automatically from request for surgery [id number] Permanent atrial fibrillation 12/26/2015 Diverticulitis of large [...] of this encounter (statuses as of 07/20/2021) [facility] History of Past illness Narrative* Problem Noted Date Resolved Date Dysuria 07/06/2021 07/08/2021 Obesity, Class I, BMI 30-34.9 01/12/2021 GI bleed 01/12/2021 01/14/2021 Acute blood loss anemia 01/12/2021 01/15/20 21 LLQ pain 09/05/2017 04/09/2021 Overview: Added automatically from request for surgery [id number] 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, estrogen receptor positive 06/03/2017 07/06/2021 Personal history of breast cancer 12/18/2016 04/09/2021 Overview: Added automatically from request for surgery [id number] Permanent atrial fibrillation 12/26/2015 Diverticulitis of large [...] of this encounter (statuses as of 07/24/2021) [facility] History of Past illness Narrative* Problem Noted Date Resolved Date Dysuria 07/06/2021 07/08/2021 Obesity, Class I, BMI 30-34.9 01/12/2021 GI bleed 01/12/2021 01/14/2021 Acute blood loss anemia 01/12/2021 01/15/20 21 LLQ pain 09/05/2017 04/09/2021 Overview: Added automatically from request for surgery [id number] 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, estrogen receptor positive 06/03/2017 07/06/2021 Personal history of breast cancer 12/18/2016 04/09/2021 Overview: Added automatically from request for surgery [id number] Permanent atrial fibrillation 12/26/2015 Diverticulitis of large [...] of this encounter (statuses as of 07/24/2021) [facility] History of Past illness Narrative* Problem Noted Date Resolved Date Dysuria 07/06/2021 07/08/2021 Obesity, Class I, BMI 30-34.9 01/12/2021 GI bleed 01/12/2021 01/14/2021 Acute blood loss anemia 01/12/2021 01/15/20 21 LLQ pain 09/05/2017 04/09/2021 Overview: Added automatically from request for surgery [id number] 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, estrogen receptor positive 06/03/2017 07/06/2021 Personal history of breast cancer 12/18/2016 04/09/2021 Overview: Added automatically from request for surgery [id number] Permanent atrial fibrillation 12/26/2015 Diverticulitis of large [...] of this encounter (statuses as of 07/27/2021) [facility] History of Past illness Narrative* Problem Noted Date Resolved Date Dysuria 07/06/2021 07/08/2021 Obesity, Class I, BMI 30-34.9 01/12/2021 GI bleed 01/12/2021 01/14/2021 Acute blood loss anemia 01/12/2021 01/15/20 21 LLQ pain 09/05/2017 04/09/2021 Overview: Added automatically from request for surgery [id number] 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, estrogen receptor positive 06/03/2017 07/06/2021 Personal history of breast cancer 12/18/2016 04/09/2021 Overview: Added automatically from request for surgery [id number] Permanent atrial fibrillation 12/26/2015 Diverticulitis of large [...] of this encounter (statuses as of 07/30/2021) [facility] History of Past illness Narrative* Problem Noted Date Resolved Date Dysuria 07/06/2021 07/08/2021 Obesity, Class I, BMI 30-34.9 01/12/2021 GI bleed 01/12/2021 01/14/2021 Acute blood loss anemia 01/12/2021 01/15/20 21 LLQ pain 09/05/2017 04/09/2021 Overview: Added automatically from request for surgery [id number] 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, estrogen receptor positive 06/03/2017 07/06/2021 Personal history of breast cancer 12/18/2016 04/09/2021 Overview: Added automatically from request for surgery [id number] Permanent atrial fibrillation 12/26/2015 Diverticulitis of large [...] of this encounter (statuses as of 07/31/2021) [facility] History of Past illness Narrative* Problem Noted Date Resolved Date Dysuria 07/06/2021 07/08/2021 Obesity, Class I, BMI 30-34.9 01/12/2021 GI bleed 01/12/2021 01/14/2021 Acute blood loss anemia 01/12/2021 01/15/20 21 LLQ pain 09/05/2017 04/09/2021 Overview: Added automatically from request for surgery [id number] 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, estrogen receptor positive 06/03/2017 07/06/2021 Personal history of breast cancer 12/18/2016 04/09/2021 Overview: Added automatically from request for surgery [id number] Permanent atrial fibrillation 12/26/2015 Diverticulitis of large [...] of this encounter (statuses as of 08/08/2021) [facility] History of Past illness Narrative* Problem Noted Date Resolved Date Dysuria 07/06/2021 07/08/2021 Obesity, Class I, BMI 30-34.9 01/12/2021 GI bleed 01/12/2021 01/14/2021 Acute blood loss anemia 01/12/2021 01/15/20 21 LLQ pain 09/05/2017 04/09/2021 Overview: Added automatically from request for surgery [id number] 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, estrogen receptor positive 06/03/2017 07/06/2021 Personal history of breast cancer 12/18/2016 04/09/2021 Overview: Added automatically from request for surgery [id number] Permanent atrial fibrillation 12/26/2015 Diverticulitis of large [...] of this encounter (statuses as of 08/10/2021) [facility] History of Past illness Narrative* Problem Noted Date Resolved Date Dysuria 07/06/2021 07/08/2021 Obesity, Class I, BMI 30-34.9 01/12/2021 GI bleed 01/12/2021 01/14/2021 Acute blood loss anemia 01/12/2021 01/15/20 21 LLQ pain 09/05/2017 04/09/2021 Overview: Added automatically from request for surgery [id number] 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, estrogen receptor positive 06/03/2017 07/06/2021 Personal history of breast cancer 12/18/2016 04/09/2021 Overview: Added automatically from request for surgery [id number] Permanent atrial fibrillation 12/26/2015 Diverticulitis of large [...] of this encounter (statuses as of 08/10/2021) [facility] History of Past illness Narrative* Problem Noted Date Resolved Date Dysuria 07/06/2021 07/08/2021 Obesity, Class I, BMI 30-34.9 01/12/2021 GI bleed 01/12/2021 01/14/2021 Acute blood loss anemia 01/12/2021 01/15/20 21 LLQ pain 09/05/2017 04/09/2021 Overview: Added automatically from request for surgery [id number] 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, estrogen receptor positive 06/03/2017 07/06/2021 Personal history of breast cancer 12/18/2016 04/09/2021 Overview: Added automatically from request for surgery [id number] Permanent atrial fibrillation 12/26/2015 Diverticulitis of large [...] of this encounter (statuses as of 08/12/2021) [facility] History of Past illness Narrative* Problem Noted Date Resolved Date Dysuria 07/06/2021 07/08/2021 Obesity, Class I, BMI 30-34.9 01/12/2021 GI bleed 01/12/2021 01/14/2021 Acute blood loss anemia 01/12/2021 01/15/20 LLQ pain 09/05/2017 04/09/2021 Overview: Added automatically from request for surgery [id number] 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, estrogen receptor positive 06/03/2017 07/06/2021 Personal history of breast cancer 12/18/2016 04/09/2021 Overview: Added automatically from request for surgery [id number] Permanent atrial fibrillation 12/26/2015 Diverticulitis of large [...] of this encounter (statuses as of 08/14/2021) [facility] History of Past illness Narrative* Problem Noted Date Resolved Date Dysuria 07/06/2021 07/08/2021 Obesity, Class I, BMI 30-34.9 01/12/2021 GI bleed 01/12/2021 01/14/2021 Acute blood loss anemia 01/12/2021 01/15/20 LLQ pain 09/05/2017 04/09/2021 Overview: Added automatically from request for surgery [id number] 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, estrogen receptor positive 06/03/2017 07/06/2021 Personal history of breast cancer 12/18/2016 04/09/2021 Overview: Added automatically from request for surgery [id number] Permanent atrial fibrillation 12/26/2015 Diverticulitis of large [...] of this encounter (statuses as of 08/15/2021) [facility] History of Past illness Narrative* Problem Noted Date Resolved Date Dysuria 07/06/2021 07/08/2021 Obesity, Class I, BMI 30-34.9 01/12/2021 GI bleed 01/12/2021 01/14/2021 Acute blood loss anemia 01/12/2021 01/15/20 21 LLQ pain 09/05/2017 04/09/2021 Overview: Added automatically from request for surgery [id number] 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, estrogen receptor positive 06/03/2017 07/06/2021 Personal history of breast cancer 12/18/2016 04/09/2021 Overview: Added automatically from request for surgery [id number] Permanent atrial fibrillation 12/26/2015 Diverticulitis of large [...] of this encounter (statuses as of 08/16/2021) [facility] History of Past illness Narrative* Problem Noted Date Resolved Date Dysuria 07/06/2021 07/08/2021 Obesity, Class I, BMI 30-34.9 01/12/2021 GI bleed 01/12/2021 01/14/2021 Acute blood loss anemia 01/12/2021 01/15/20 21 LLQ pain 09/05/2017 04/09/2021 Overview: Added automatically from request for surgery [id number] 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, estrogen receptor positive 06/03/2017 07/06/2021 Personal history of breast cancer 12/18/2016 04/09/2021 Overview: Added automatically from request for surgery [id number] Permanent atrial fibrillation 12/26/2015 Diverticulitis of large [...] of this encounter (statuses as of 08/17/2021) [facility] History of Past illness Narrative* Problem Noted Date Resolved Date Dysuria 07/06/2021 07/08/2021 Obesity, Class I, BMI 30-34.9 01/12/2021 GI bleed 01/12/2021 01/14/2021 Acute blood loss anemia 01/12/2021 01/15/20 LLQ pain 09/05/2017 04/09/2021 Overview: Added automatically from request for surgery [id number] 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, estrogen receptor positive 06/03/2017 07/06/2021 Personal history of breast cancer 12/18/2016 04/09/2021 Overview: Added automatically from request for surgery [id number] Permanent atrial fibrillation 12/26/2015 Diverticulitis of large [...] of this encounter (statuses as of 08/20/2021) [facility] History of Past illness Narrative* Problem Noted Date Resolved Date Dysuria 07/06/2021 07/08/2021 Obesity, Class I, BMI 30-34.9 01/12/2021 GI bleed 01/12/2021 01/14/2021 Acute blood loss anemia 01/12/2021 01/15/20 21 LLQ pain 09/05/2017 04/09/2021 Overview: Added automatically from request for surgery [id number] 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, estrogen receptor positive 06/03/2017 07/06/2021 Personal history of breast cancer 12/18/2016 04/09/2021 Overview: Added automatically from request for surgery [id number] Permanent atrial fibrillation 12/26/2015 Diverticulitis of large [...] of this encounter (statuses as of 08/22/2021) [facility] History of Past illness Narrative* Problem Noted Date Resolved Date Dysuria 07/06/2021 07/08/2021 Obesity, Class I, BMI 30-34.9 01/12/2021 GI bleed 01/12/2021 01/14/2021 Acute blood loss anemia 01/12/2021 01/15/20 21 LLQ pain 09/05/2017 04/09/2021 Overview: Added automatically from request for surgery [id number] 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, estrogen receptor positive 06/03/2017 07/06/2021 Personal history of breast cancer 12/18/2016 04/09/2021 Overview: Added automatically from request for surgery [id number] Permanent atrial fibrillation 12/26/2015 Diverticulitis of large [...] of this encounter (statuses as of 08/26/2021) [facility]04-[facility]-2022 History of Past illness Narrative* Problem Noted Date Resolved Date Dysuria 07/06/2021 07/08/2021 Obesity, Class I, BMI 30-34.9 01/12/2021 GI bleed 01/12/2021 01/14/2021 Acute blood loss anemia 01/12/2021 01/15/20 21 LLQ pain 09/05/2017 04/09/2021 Overview: Added automatically from request for surgery [id number] 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, estrogen receptor positive 06/03/2017 07/06/2021 Personal history of breast cancer 12/18/2016 04/09/2021 Overview: Added automatically from request for surgery [id number] Permanent atrial fibrillation 12/26/2015 Diverticulitis of large [...] of this encounter (statuses as of 08/26/2021) [place] [address]-22-2022 History of Past illness Narrative* Problem Noted Date Resolved Date Dysuria 07/06/2021 07/08/2021 Obesity, Class I, BMI 30-34.9 01/12/2021 GI bleed 01/12/2021 01/14/2021 Acute blood loss anemia 01/12/2021 01/15/20 LLQ pain 09/05/2017 04/09/2021 Overview: Added automatically from request for surgery [id number] 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, estrogen receptor positive 06/03/2017 07/06/2021 Personal history of breast cancer 12/18/2016 04/09/2021 Overview: Added automatically from request for surgery [id number] Permanent atrial fibrillation 12/26/2015 Diverticulitis of large [...] 07/01/2007 04/09/2021 Overview: Summer of 2015, and 2008. On tamoxifen Last Assessment & [...] of this encounter (statuses as of 08/26/2021) [facility]04-[facility]2022 History of Past illness Narrative* Problem Noted Date Resolved Date Dysuria 07/06/2021 07/08/2021 Obesity, Class I, BMI 30-34.9 01/12/2021 GI bleed 01/12/2021 01/14/2021 Acute blood loss anemia 01/12/2021 01/15/20 21 LLQ pain 09/05/2017 04/09/2021 Overview: Added automatically from request for surgery [id number] 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, estrogen receptor positive 06/03/2017 07/06/2021 Personal history of breast cancer 12/18/2016 04/09/2021 Overview: Added automatically from request for surgery [id number] Permanent atrial fibrillation 12/26/2015 Diverticulitis of large [...] of this encounter (statuses as of 08/26/2021) [facility] History of Past illness Narrative* Problem Noted Date Resolved Date Dysuria 07/06/2021 07/08/2021 Obesity, Class I, BMI 30-34.9 01/12/2021 GI bleed 01/12/2021 01/14/2021 Acute blood loss anemia 01/12/2021 01/15/20 21 LLQ pain 09/05/2017 04/09/2021 Overview: Added automatically from request for surgery [id number] 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, estrogen receptor positive 06/03/2017 07/06/2021 Personal history of breast cancer 12/18/2016 04/09/2021 Overview: Added automatically from request for surgery [id number] Permanent atrial fibrillation 12/26/2015 Diverticulitis of large [...] of this encounter (statuses as of 08/28/2021) [facility] History of Past illness Narrative* Problem Noted Date Resolved Date Dysuria 07/06/2021 07/08/2021 Obesity, Class I, BMI 30-34.9 01/12/2021 GI bleed 01/12/2021 01/14/2021 Acute blood loss anemia 01/12/2021 01/15/20 LLQ pain 09/05/2017 04/09/2021 Overview: Added automatically from request for surgery [id number] 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, estrogen receptor positive 06/03/2017 07/06/2021 Personal history of breast cancer 12/18/2016 04/09/2021 Overview: Added automatically from request for surgery [id number] Permanent atrial fibrillation 12/26/2015 Diverticulitis of large [...] of this encounter (statuses as of 08/28/2021) [facility] History of Past illness Narrative* Problem Noted Date Resolved Date Dysuria 07/06/2021 07/08/2021 Obesity, Class I, BMI 30-34.9 01/12/2021 GI bleed 01/12/2021 01/14/2021 Acute blood loss anemia 01/12/2021 01/15/20 LLQ pain 09/05/2017 04/09/2021 Overview: Added automatically from request for surgery [id number] 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, estrogen receptor positive 06/03/2017 07/06/2021 Personal history of breast cancer 12/18/2016 04/09/2021 Overview: Added automatically from request for surgery [id number] Permanent atrial fibrillation 12/26/2015 Diverticulitis of large [...] of this encounter (statuses as of 08/30/2021) [facility] History of Past illness Narrative* Problem Noted Date Resolved Date Dysuria 07/06/2021 07/08/2021 Obesity, Class I, BMI 30-34.9 01/12/2021 GI bleed 01/12/2021 01/14/2021 Acute blood loss anemia 01/12/2021 01/15/20 21 LLQ pain 09/05/2017 04/09/2021 Overview: Added automatically from request for surgery [id number] 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, estrogen receptor positive 06/03/2017 07/06/2021 Personal history of breast cancer 12/18/2016 04/09/2021 Overview: Added automatically from request for surgery [id number] Permanent atrial fibrillation 12/26/2015 Diverticulitis of large [...] of this encounter (statuses as of 08/31/2021) [facility] History of Past illness Narrative* Problem Noted Date Resolved Date Dysuria 07/06/2021 07/08/2021 Obesity, Class I, BMI 30-34.9 01/12/2021 GI bleed 01/12/2021 01/14/2021 Acute blood loss anemia 01/12/2021 01/15/20 21 LLQ pain 09/05/2017 04/09/2021 Overview: Added automatically from request for surgery [id number] 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, estrogen receptor positive 06/03/2017 07/06/2021 Personal history of breast cancer 12/18/2016 04/09/2021 Overview: Added automatically from request for surgery [id number] Permanent atrial fibrillation 12/26/2015 Diverticulitis of large [...] of this encounter (statuses as of 09/05/2021) [facility] History of Past illness Narrative* Problem Noted Date Resolved Date Dysuria 07/06/2021 07/08/2021 Obesity, Class I, BMI 30-34.9 01/12/2021 GI bleed 01/12/2021 01/14/2021 Acute blood loss anemia 01/12/2021 01/15/20 LLQ pain 09/05/2017 04/09/2021 Overview: Added automatically from request for surgery [id number] 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, estrogen receptor positive 06/03/2017 07/06/2021 Personal history of breast cancer 12/18/2016 04/09/2021 Overview: Added automatically from request for surgery [id number] Permanent atrial fibrillation 12/26/2015 Diverticulitis of large [...] of this encounter (statuses as of 09/05/2021) [facility] History of Past illness Narrative* Problem Noted Date Resolved Date Dysuria 07/06/2021 07/08/2021 Obesity, Class I, BMI 30-34.9 01/12/2021 GI bleed 01/12/2021 01/14/2021 Acute blood loss anemia 01/12/2021 01/15/20 21 LLQ pain 09/05/2017 04/09/2021 Overview: Added automatically from request for surgery [id number] 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, estrogen receptor positive 06/03/2017 07/06/2021 Personal history of breast cancer 12/18/2016 04/09/2021 Overview: Added automatically from request for surgery [id number] Permanent atrial fibrillation 12/26/2015 Diverticulitis of large [...] of this encounter (statuses as of 09/07/2021) [facility] History of Past illness Narrative* Problem Noted Date Resolved Date Dysuria 07/06/2021 07/08/2021 Obesity, Class I, BMI 30-34.9 01/12/2021 GI bleed 01/12/2021 01/14/2021 Acute blood loss anemia 01/12/2021 01/15/20 LLQ pain 09/05/2017 04/09/2021 Overview: Added automatically from request for surgery [id number] 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, estrogen receptor positive 06/03/2017 07/06/2021 Personal history of breast cancer 12/18/2016 04/09/2021 Overview: Added automatically from request for surgery [id number] Permanent atrial fibrillation 12/26/2015 Diverticulitis of large [...] of this encounter (statuses as of 09/10/2021) [facility] History of Past illness Narrative* Problem Noted Date Resolved Date Dysuria 07/06/2021 07/08/2021 Obesity, Class I, BMI 30-34.9 01/12/2021 GI bleed 01/12/2021 01/14/2021 Acute blood loss anemia 01/12/2021 01/15/20 21 LLQ pain 09/05/2017 04/09/2021 Overview: Added automatically from request for surgery [id number] 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, estrogen receptor positive 06/03/2017 07/06/2021 Personal history of breast cancer 12/18/2016 04/09/2021 Overview: Added automatically from request for surgery [id number] Permanent atrial fibrillation 12/26/2015 Diverticulitis of large [...] 12/12/2012 Symptomatic menopausal or female climacteric sta tarcy 02/04/2008 04/14/2013 Personal history of malignant neoplasm [...] of this encounter (statuses as of 09/11/2021) [facility] History of Past illness Narrative* Problem Noted Date Resolved Date Dysuria 07/06/2021 07/08/2021 Obesity, Class I, BMI 30-34.9 01/12/2021 GI bleed 01/12/2021 01/14/2021 Acute blood loss anemia 01/12/2021 01/15/20 21 LLQ pain 09/05/2017 04/09/2021 Overview: Added automatically from request for surgery [id number] 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, estrogen receptor positive 06/03/2017 07/06/2021 Personal history of breast cancer 12/18/2016 04/09/2021 Overview: Added automatically from request for surgery [id number] Permanent atrial fibrillation 12/26/2015 Diverticulitis of large [...] of this encounter (statuses as of 09/12/2021) [facility] History of Past illness Narrative* Problem Noted Date Resolved Date Dysuria 07/06/2021 07/08/2021 Obesity, Class I, BMI 30-34.9 01/12/2021 GI bleed 01/12/2021 01/14/2021 Acute blood loss anemia 01/12/2021 01/15/20 LLQ pain 09/05/2017 04/09/2021 Overview: Added automatically from request for surgery [id number] 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, estrogen receptor positive 06/03/2017 07/06/2021 Personal history of breast cancer 12/18/2016 04/09/2021 Overview: Added automatically from request for surgery [id number] Permanent atrial fibrillation 12/26/2015 Diverticulitis of large [...] of this encounter (statuses as of 09/18/2021) [facility] History of Past illness Narrative* Problem Noted Date Resolved Date Dysuria 07/06/2021 07/08/2021 Obesity, Class I, BMI 30-34.9 01/12/2021 GI bleed 01/12/2021 01/14/2021 Acute blood loss anemia 01/12/2021 01/15/20 21 LLQ pain 09/05/2017 04/09/2021 Overview: Added automatically from request for surgery [id number] 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, estrogen receptor positive 06/03/2017 07/06/2021 Personal history of breast cancer 12/18/2016 04/09/2021 Overview: Added automatically from request for surgery [id number] Permanent atrial fibrillation 12/26/2015 Diverticulitis of large [...] 10/08/2007 04/14/2013 MALIGN NEOPL BREAST NOS 08/18/2007 01/30/20 15 Postmenopausal atrophic vaginitis 07/28/2007 04/15/2014 HX [...] of this encounter (statuses as of 09/18/2021) [facility] History of Past illness Narrative* Problem Noted Date Resolved Date Dysuria 07/06/2021 07/08/2021 Obesity, Class I, BMI 30-34.9 01/12/2021 GI bleed 01/12/2021 01/14/2021 Acute blood loss anemia 01/12/2021 01/15/20 21 LLQ pain 09/05/2017 04/09/2021 Overview: Added automatically from request for surgery [id number] 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, estrogen receptor positive 06/03/2017 07/06/2021 Personal history of breast cancer 12/18/2016 04/09/2021 Overview: Added automatically from request for surgery [id number] Permanent atrial fibrillation 12/26/2015 Diverticulitis of large [...] of this encounter (statuses as of 09/19/2021) [facility] History of Past illness Narrative* Problem Noted Date Resolved Date Dysuria 07/06/2021 07/08/2021 Obesity, Class I, BMI 30-34.9 01/12/2021 GI bleed 01/12/2021 01/14/2021 Acute blood loss anemia 01/12/2021 01/15/20 21 LLQ pain 09/05/2017 04/09/2021 Overview: Added automatically from request for surgery [id number] 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, estrogen receptor positive 06/03/2017 07/06/2021 Personal history of breast cancer 12/18/2016 04/09/2021 Overview: Added automatically from request for surgery [id number] Permanent atrial fibrillation 12/26/2015 Diverticulitis of large [...] of this encounter (statuses as of 09/28/2021) [facility] History of Past illness Narrative* Problem Noted Date Resolved Date Dysuria 07/06/2021 07/08/2021 Obesity, Class I, BMI 30-34.9 01/12/2021 GI bleed 01/12/2021 01/14/2021 Acute blood loss anemia 01/12/2021 01/15/20 21 LLQ pain 09/05/2017 04/09/2021 Overview: Added automatically from request for surgery [id number] 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, estrogen receptor positive 06/03/2017 07/06/2021 Personal history of breast cancer 12/18/2016 04/09/2021 Overview: Added automatically from request for surgery [id number] Permanent atrial fibrillation 12/26/2015 Diverticulitis of large [...] of this encounter (statuses as of 10/02/2021) [facility] History of Past illness Narrative* Problem Noted Date Resolved Date Dysuria 07/06/2021 07/08/2021 Obesity, Class I, BMI 30-34.9 01/12/2021 GI bleed 01/12/2021 01/14/2021 Acute blood loss anemia 01/12/2021 01/15/20 21 LLQ pain 09/05/2017 04/09/2021 Overview: Added automatically from request for surgery [id number] 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, estrogen receptor positive 06/03/2017 07/06/2021 Personal history of breast cancer 12/18/2016 04/09/2021 Overview: Added automatically from request for surgery [id number] Permanent atrial fibrillation 12/26/2015 Diverticulitis of large [...] of this encounter (statuses as of 10/11/2021) [facility] History of Past illness Narrative* Problem Noted Date Resolved Date Dysuria 07/06/2021 07/08/2021 Obesity, Class I, BMI 30-34.9 01/12/2021 GI bleed 01/12/2021 01/14/2021 Acute blood loss anemia 01/12/2021 01/15/20 21 LLQ pain 09/05/2017 04/09/2021 Overview: Added automatically from request for surgery [id number] 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, estrogen receptor positive 06/03/2017 07/06/2021 Personal history of breast cancer 12/18/2016 04/09/2021 Overview: Added automatically from request for surgery [id number] Permanent atrial fibrillation 12/26/2015 Diverticulitis of large [...] cutis 11/07/2013 04/15/2014 Solar lentigo 11/07/2013 04/15/2014 [place] angioma 11/07/2013 04/15/2014 Pruritus 11/07/2013 04/15/2014 Backache, [...] of this encounter (statuses as of 10/15/2021) [facility] History of Past illness Narrative* Problem Noted Date Resolved Date Dysuria 07/06/2021 07/08/2021 Obesity, Class I, BMI 30-34.9 01/12/2021 GI bleed 01/12/2021 01/14/2021 Acute blood loss anemia 01/12/2021 01/15/20 LLQ pain 09/05/2017 04/09/2021 Overview: Added automatically from request for surgery [id number] 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, estrogen receptor positive 06/03/2017 07/06/2021 Personal history of breast cancer 12/18/2016 04/09/2021 Overview: Added automatically from request for surgery [id number] Permanent atrial fibrillation 12/26/2015 Diverticulitis of large [...] of this encounter (statuses as of 10/15/2021) [facility] History of Past illness Narrative* Problem Noted Date Resolved Date Dysuria 07/06/2021 07/08/2021 Obesity, Class I, BMI 30-34.9 01/12/2021 GI bleed 01/12/2021 01/14/2021 Acute blood loss anemia 01/12/2021 01/15/20 21 LLQ pain 09/05/2017 04/09/2021 Overview: Added automatically from request for surgery [id number] 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, estrogen receptor positive 06/03/2017 07/06/2021 Personal history of breast cancer 12/18/2016 04/09/2021 Overview: Added automatically from request for surgery [id number] Permanent atrial fibrillation 12/26/2015 Diverticulitis of large [...] of this encounter (statuses as of 10/16/2021) [facility] History of Past illness Narrative* Problem Noted Date Resolved Date Dysuria 07/06/2021 07/08/2021 Obesity, Class I, BMI 30-34.9 01/12/2021 GI bleed 01/12/2021 01/14/2021 Acute blood loss anemia 01/12/2021 01/15/20 LLQ pain 09/05/2017 04/09/2021 Overview: Added automatically from request for surgery [id number] 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, estrogen receptor positive 06/03/2017 07/06/2021 Personal history of breast cancer 12/18/2016 04/09/2021 Overview: Added automatically from request for surgery [id number] Permanent atrial fibrillation 12/26/2015 Diverticulitis of large [...] of this encounter (statuses as of 10/17/2021) [facility] History of Past illness Narrative* Problem Noted Date Resolved Date Dysuria 07/06/2021 07/08/2021 Obesity, Class I, BMI 30-34.9 01/12/2021 GI bleed 01/12/2021 01/14/2021 Acute blood loss anemia 01/12/2021 01/15/20 LLQ pain 09/05/2017 04/09/2021 Overview: Added automatically from request for surgery [id number] 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, estrogen receptor positive 06/03/2017 07/06/2021 Personal history of breast cancer 12/18/2016 04/09/2021 Overview: Added automatically from request for surgery [id number] Permanent atrial fibrillation 12/26/2015 Diverticulitis of large [...] of this encounter (statuses as of 10/17/2021) [facility] History of Past illness Narrative* Problem Noted Date Resolved Date Dysuria 07/06/2021 07/08/2021 Obesity, Class I, BMI 30-34.9 01/12/2021 GI bleed 01/12/2021 01/14/2021 Acute blood loss anemia 01/12/2021 01/15/20 21 LLQ pain 09/05/2017 04/09/2021 Overview: Added automatically from request for surgery [id number] 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, estrogen receptor positive 06/03/2017 07/06/2021 Personal history of breast cancer 12/18/2016 04/09/2021 Overview: Added automatically from request for surgery [id number] Permanent atrial fibrillation 12/26/2015 Diverticulitis of large [...] of this encounter (statuses as of 10/22/2021) [facility] History of Past illness Narrative* Problem Noted Date Resolved Date Dysuria 07/06/2021 07/08/2021 Obesity, Class I, BMI 30-34.9 01/12/2021 GI bleed 01/12/2021 01/14/2021 Acute blood loss anemia 01/12/2021 01/15/20 LLQ pain 09/05/2017 04/09/2021 Overview: Added automatically from request for surgery [id number] 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, estrogen receptor positive 06/03/2017 07/06/2021 Personal history of breast cancer 12/18/2016 04/09/2021 Overview: Added automatically from request for surgery [id number] Permanent atrial fibrillation 12/26/2015 Diverticulitis of large [...] of this encounter (statuses as of 11/02/2021) [facility] History of Past illness Narrative* Problem Noted Date Resolved Date Dysuria 07/06/2021 07/08/2021 Obesity, Class I, BMI 30-34.9 01/12/2021 GI bleed 01/12/2021 01/14/2021 Acute blood loss anemia 01/12/2021 01/15/20 21 LLQ pain 09/05/2017 04/09/2021 Overview: Added automatically from request for surgery [id number] 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, estrogen receptor positive 06/03/2017 07/06/2021 Personal history of breast cancer 12/18/2016 04/09/2021 Overview: Added automatically from request for surgery [id number] Permanent atrial fibrillation 12/26/2015 Diverticulitis of large [...] of this encounter (statuses as of 11/06/2021) [facility] History of Past illness Narrative* Problem Noted Date Resolved Date Dysuria 07/06/2021 07/08/2021 Obesity, Class I, BMI 30-34.9 01/12/2021 GI bleed 01/12/2021 01/14/2021 Acute blood loss anemia 01/12/2021 01/15/20 21 LLQ pain 09/05/2017 04/09/2021 Overview: Added automatically from request for surgery [id number] 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, estrogen receptor positive 06/03/2017 07/06/2021 Personal history of breast cancer 12/18/2016 04/09/2021 Overview: Added automatically from request for surgery [id number] Permanent atrial fibrillation 12/26/2015 Diverticulitis of large [...] of this encounter (statuses as of 11/13/2021) [facility] History of Past illness Narrative* Problem Noted Date Resolved Date Dysuria 07/06/2021 07/08/2021 Obesity, Class I, BMI 30-34.9 01/12/2021 GI bleed 01/12/2021 01/14/2021 Acute blood loss anemia 01/12/2021 01/15/20 LLQ pain 09/05/2017 04/09/2021 Overview: Added automatically from request for surgery [id number] 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, estrogen receptor positive 06/03/2017 07/06/2021 Personal history of breast cancer 12/18/2016 04/09/2021 Overview: Added automatically from request for surgery [id number] Permanent atrial fibrillation 12/26/2015 Diverticulitis of large [...] of this encounter (statuses as of 12/11/2021) [facility] History of Past illness Narrative* Problem Noted Date Resolved Date Dysuria 07/06/2021 07/08/2021 Obesity, Class I, BMI 30-34.9 01/12/2021 GI bleed 01/12/2021 01/14/2021 Acute blood loss anemia 01/12/2021 01/15/20 21 LLQ pain 09/05/2017 04/09/2021 Overview: Added automatically from request for surgery [id number] 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, estrogen receptor positive 06/03/2017 07/06/2021 Personal history of breast cancer 12/18/2016 04/09/2021 Overview: Added automatically from request for surgery [id number] Permanent atrial fibrillation 12/26/2015 Diverticulitis of large [...] of this encounter (statuses as of 12/25/2021) [facility] History of Past illness Narrative* Problem Noted Date Resolved Date Dysuria 07/06/2021 07/08/2021 Obesity, Class I, BMI 30-34.9 01/12/2021 GI bleed 01/12/2021 01/14/2021 Acute blood loss anemia 01/12/2021 01/15/20 21 LLQ pain 09/05/2017 04/09/2021 Overview: Added automatically from request for surgery [id number] 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, estrogen receptor positive 06/03/2017 07/06/2021 Personal history of breast cancer 12/18/2016 04/09/2021 Overview: Added automatically from request for surgery [id number] Permanent atrial fibrillation 12/26/2015 Diverticulitis of large [...] of this encounter (statuses as of 01/02/2022) [facility] History of Past illness Narrative* Problem Noted Date Resolved Date Dysuria 07/06/2021 07/08/2021 Obesity, Class I, BMI 30-34.9 01/12/2021 GI bleed 01/12/2021 01/14/2021 Acute blood loss anemia 01/12/2021 01/15/20 LLQ pain 09/05/2017 04/09/2021 Overview: Added automatically from request for surgery [id number] 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, estrogen receptor positive 06/03/2017 07/06/2021 Personal history of breast cancer 12/18/2016 04/09/2021 Overview: Added automatically from request for surgery [id number] Permanent atrial fibrillation 12/26/2015 Diverticulitis of large [...] of this encounter (statuses as of 01/08/2022) [facility] History of Past illness Narrative* Problem Noted Date Resolved Date Dysuria 07/06/2021 07/08/2021 Obesity, Class I, BMI 30-34.9 01/12/2021 GI bleed 01/12/2021 01/14/2021 Acute blood loss anemia 01/12/2021 01/15/20 LLQ pain 09/05/2017 04/09/2021 Overview: Added automatically from request for surgery [id number] 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, estrogen receptor positive 06/03/2017 07/06/2021 Personal history of breast cancer 12/18/2016 04/09/2021 Overview: Added automatically from request for surgery [id number] Permanent atrial fibrillation 12/26/2015 Diverticulitis of large [...] KERATOSIS: IRRITATED//INFLAMED 200712/12/2012 Viral warts, unspecified 02/08/2008 09/28/2 013 Benign neoplasm of skin of o [...] of this encounter (statuses as of 01/21/2022) [facility]04-22-2022 History of Past illness Narrative* Problem Noted Date Resolved Date Dysuria 07/06/2021 07/08/2021 Obesity, Class I, BMI 30-34.9 01/12/2021 GI bleed 01/12/2021 01/14/2021 Acute blood loss anemia 01/12/2021 01/15/20 21 LLQ pain 09/05/2017 04/09/2021 Overview: Added automatically from request for surgery [id number] 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, estrogen receptor positive 06/03/2017 07/06/2021 Personal history of breast cancer 12/18/2016 04/09/2021 Overview: Added automatically from request for surgery [id number] Permanent atrial fibrillation 12/26/2015 Diverticulitis of large [...] cutis 11/07/2013 04/15/2014 Solar lentigo 11/07/2013 04/15/2014 [place] angioma 11/07/2013 04/15/2014 Pruritus 11/07/2013 04/15/2014 Backache, [...] of this encounter (statuses as of 02/05/2022) [facility]2022 History of Past illness Narrative* Problem Noted Date Resolved Date Dysuria 07/06/2021 07/08/2021 Obesity, Class I, BMI 30-34.9 01/12/2021 GI bleed 01/12/2021 01/14/2021 Acute blood loss anemia 01/12/2021 01/15/20 21 LLQ pain 09/05/2017 04/09/2021 Overview: Added automatically from request for surgery [id number] 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, estrogen receptor positive 06/03/2017 07/06/2021 Personal history of breast cancer 12/18/2016 04/09/2021 Overview: Added automatically from request for surgery [id number] Permanent atrial fibrillation 12/26/2015 Diverticulitis of large [...] of this encounter (statuses as of 03/09/2022) [facility] History of Past illness Narrative* Problem Noted Date Resolved Date Dysuria 07/06/2021 07/08/2021 Obesity, Class I, BMI 30-34.9 01/12/2021 GI bleed 01/12/2021 01/14/2021 Acute blood loss anemia 01/12/2021 01/15/20 LLQ pain 09/05/2017 04/09/2021 Overview: Added automatically from request for surgery [id number] 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, estrogen receptor positive 06/03/2017 07/06/2021 Personal history of breast cancer 12/18/2016 04/09/2021 Overview: Added automatically from request for surgery [id number] Permanent atrial fibrillation 12/26/2015 Diverticulitis of large [...] of this encounter (statuses as of 03/17/2022) [facility] History of Past illness Narrative* Problem Noted Date Resolved Date Dysuria 07/06/2021 07/08/2021 Obesity, Class I, BMI 30-34.9 01/12/2021 GI bleed 01/12/2021 01/14/2021 Acute blood loss anemia 01/12/2021 01/15/20 LLQ pain 09/05/2017 04/09/2021 Overview: Added automatically from request for surgery [id number] 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, estrogen receptor positive 06/03/2017 07/06/2021 Personal history of breast cancer 12/18/2016 04/09/2021 Overview: Added automatically from request for surgery [id number] Permanent atrial fibrillation 12/26/2015 Diverticulitis of large [...] of this encounter (statuses as of 03/20/2022) [facility] History of Past illness Narrative* Problem Noted Date Resolved Date Dysuria 07/06/2021 07/08/2021 Obesity, Class I, BMI 30-34.9 01/12/2021 GI bleed 01/12/2021 01/14/2021 Acute blood loss anemia 01/12/2021 01/15/20 21 LLQ pain 09/05/2017 04/09/2021 Overview: Added automatically from request for surgery [id number] 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, estrogen receptor positive 06/03/2017 07/06/2021 Personal history of breast cancer 12/18/2016 04/09/2021 Overview: Added automatically from request for surgery [id number] Permanent atrial fibrillation 12/26/2015 Diverticulitis of large [...] of this encounter (statuses as of 03/23/2022) [facility] History of Past illness Narrative* Problem Noted Date Resolved Date Dysuria 07/06/2021 07/08/2021 Obesity, Class I, BMI 30-34.9 01/12/2021 GI bleed 01/12/2021 01/14/2021 Acute blood loss anemia 01/12/2021 01/15/20 21 LLQ pain 09/05/2017 04/09/2021 Overview: Added automatically from request for surgery [id number] 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, estrogen receptor positive 06/03/2017 07/06/2021 Personal history of breast cancer 12/18/2016 04/09/2021 Overview: Added automatically from request for surgery [id number] Permanent atrial fibrillation 12/26/2015 Diverticulitis of large [...] of this encounter (statuses as of 03/23/2022) [facility] History of Past illness Narrative* Problem Noted Date Resolved Date Dysuria 07/06/2021 07/08/2021 Obesity, Class I, BMI 30-34.9 01/12/2021 GI bleed 01/12/2021 01/14/2021 Acute blood loss anemia 01/12/2021 01/15/20 21 LLQ pain 09/05/2017 04/09/2021 Overview: Added automatically from request for surgery [id number] 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, estrogen receptor positive 06/03/2017 07/06/2021 Personal history of breast cancer 12/18/2016 04/09/2021 Overview: Added automatically from request for surgery [id number] Permanent atrial fibrillation 12/26/2015 Diverticulitis of large [...] of this encounter (statuses as of 03/25/2022) [facility] History of Past illness Narrative* Problem Noted Date Resolved Date Dysuria 07/06/2021 07/08/2021 Obesity, Class I, BMI 30-34.9 01/12/2021 GI bleed 01/12/2021 01/14/2021 Acute blood loss anemia 01/12/2021 01/15/20 21 LLQ pain 09/05/2017 04/09/2021 Overview: Added automatically from request for surgery [id number] 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, estrogen receptor positive 06/03/2017 07/06/2021 Personal history of breast cancer 12/18/2016 04/09/2021 Overview: Added automatically from request for surgery [id number] Permanent atrial fibrillation 12/26/2015 Diverticulitis of large [...] of this encounter (statuses as of 04/08/2022) [facility] History of Past illness Narrative* Problem Noted Date Resolved Date Dysuria 07/06/2021 07/08/2021 Obesity, Class I, BMI 30-34.9 01/12/2021 GI bleed 01/12/2021 01/14/2021 Acute blood loss anemia 01/12/2021 01/15/20 21 LLQ pain 09/05/2017 04/09/2021 Overview: Added automatically from request for surgery [id number] 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, estrogen receptor positive 06/03/2017 07/06/2021 Personal history of breast cancer 12/18/2016 04/09/2021 Overview: Added automatically from request for surgery [id number] Permanent atrial fibrillation 12/26/2015 Diverticulitis of large [...] of this encounter (statuses as of 04/10/2022) [facility] History of Past illness Narrative* Problem Noted Date Resolved Date Dysuria 07/06/2021 07/08/2021 Obesity, Class I, BMI 30-34.9 01/12/2021 GI bleed 01/12/2021 01/14/2021 Acute blood loss anemia 01/12/2021 01/15/20 LLQ pain 09/05/2017 04/09/2021 Overview: Added automatically from request for surgery [id number] 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, estrogen receptor positive 06/03/2017 07/06/2021 Personal history of breast cancer 12/18/2016 04/09/2021 Overview: Added automatically from request for surgery [id number] Permanent atrial fibrillation 12/26/2015 Diverticulitis of large [...] of this encounter (statuses as of 04/12/2022) [facility] History of Past illness Narrative* Problem Noted Date Resolved Date Dysuria 07/06/2021 07/08/2021 Obesity, Class I, BMI 30-34.9 01/12/2021 GI bleed 01/12/2021 01/14/2021 Acute blood loss anemia 01/12/2021 01/15/20 21 LLQ pain 09/05/2017 04/09/2021 Overview: Added automatically from request for surgery [id number] 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, estrogen receptor positive 06/03/2017 07/06/2021 Personal history of breast cancer 12/18/2016 04/09/2021 Overview: Added automatically from request for surgery [id number] Permanent atrial fibrillation 12/26/2015 Diverticulitis of large [...] of this encounter (statuses as of 04/15/2022) [facility] History of Past illness Narrative* Problem Noted Date Resolved Date Dysuria 07/06/2021 07/08/2021 Obesity, Class I, BMI 30-34.9 01/12/2021 GI bleed 01/12/2021 01/14/2021 Acute blood loss anemia 01/12/2021 01/15/20 LLQ pain 09/05/2017 04/09/2021 Overview: Added automatically from request for surgery [id number] 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, estrogen receptor positive 06/03/2017 07/06/2021 Personal history of breast cancer 12/18/2016 04/09/2021 Overview: Added automatically from request for surgery [id number] Permanent atrial fibrillation 12/26/2015 Diverticulitis of large [...] of this encounter (statuses as of 04/16/2022) [facility] History of Past illness Narrative* Problem Noted Date Resolved Date Dysuria 07/06/2021 07/08/2021 Obesity, Class I, BMI 30-34.9 01/12/2021 GI bleed 01/12/2021 01/14/2021 Acute blood loss anemia 01/12/2021 01/15/20 LLQ pain 09/05/2017 04/09/2021 Overview: Added automatically from request for surgery [id number] 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, estrogen receptor positive 06/03/2017 07/06/2021 Personal history of breast cancer 12/18/2016 04/09/2021 Overview: Added automatically from request for surgery [id number] Permanent atrial fibrillation 12/26/2015 Diverticulitis of large [...] of this encounter (statuses as of 04/16/2022) [facility] History of Past illness Narrative* Problem Noted Date Resolved Date Dysuria 07/06/2021 07/08/2021 Obesity, Class I, BMI 30-34.9 01/12/2021 GI bleed 01/12/2021 01/14/2021 Acute blood loss anemia 01/12/2021 01/15/20 21 LLQ pain 09/05/2017 04/09/2021 Overview: Added automatically from request for surgery [id number] 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, estrogen receptor positive 06/03/2017 07/06/2021 Personal history of breast cancer 12/18/2016 04/09/2021 Overview: Added automatically from request for surgery [id number] Permanent atrial fibrillation 12/26/2015 Diverticulitis of large [...] of this encounter (statuses as of 04/17/2022) [facility] History of Past illness Narrative* Problem Noted Date Resolved Date Dysuria 07/06/2021 07/08/2021 Obesity, Class I, BMI 30-34.9 01/12/2021 GI bleed 01/12/2021 01/14/2021 Acute blood loss anemia 01/12/2021 01/15/20 LLQ pain 09/05/2017 04/09/2021 Overview: Added automatically from request for surgery [id number] 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, estrogen receptor positive 06/03/2017 07/06/2021 Personal history of breast cancer 12/18/2016 04/09/2021 Overview: Added automatically from request for surgery [id number] Permanent atrial fibrillation 12/26/2015 Diverticulitis of large [...] of this encounter (statuses as of 04/22/2022) [facility] History of Past illness Narrative* Problem Noted Date Resolved Date Dysuria 07/06/2021 07/08/2021 Obesity, Class I, BMI 30-34.9 01/12/2021 GI bleed 01/12/2021 01/14/2021 Acute blood loss anemia 01/12/2021 01/15/20 21 LLQ pain 09/05/2017 04/09/2021 Overview: Added automatically from request for surgery [id number] 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, estrogen receptor positive 06/03/2017 07/06/2021 Personal history of breast cancer 12/18/2016 04/09/2021 Overview: Added automatically from request for surgery [id number] Permanent atrial fibrillation 12/26/2015 Diverticulitis of large [...] of this encounter (statuses as of 05/30/2022) [facility] History of Past illness Narrative* Problem Noted Date Resolved Date Dysuria 07/06/2021 07/08/2021 Obesity, Class I, BMI 30-34.9 01/12/2021 GI bleed 01/12/2021 01/14/2021 Acute blood loss anemia 01/12/2021 01/15/20 21 LLQ pain 09/05/2017 04/09/2021 Overview: Added automatically from request for surgery [id number] 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, estrogen receptor positive 06/03/2017 07/06/2021 Personal history of breast cancer 12/18/2016 04/09/2021 Overview: Added automatically from request for surgery [id number] Permanent atrial fibrillation 12/26/2015 Diverticulitis of large [...] of this encounter (statuses as of 06/07/2022) [facility] History of Past illness Narrative* Problem Noted Date Resolved Date Dysuria 07/06/2021 07/08/2021 Obesity, Class I, BMI 30-34.9 01/12/2021 GI bleed 01/12/2021 01/14/2021 Acute blood loss anemia 01/12/2021 01/15/20 21 LLQ pain 09/05/2017 04/09/2021 Overview: Added automatically from request for surgery [id number] 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, estrogen receptor positive 06/03/2017 07/06/2021 Personal history of breast cancer 12/18/2016 04/09/2021 Overview: Added automatically from request for surgery [id number] Permanent atrial fibrillation 12/26/2015 Diverticulitis of large [...] of this encounter (statuses as of 06/11/2022) [facility] History of Past illness Narrative* Problem Noted Date Resolved Date Dysuria 07/06/2021 07/08/2021 Obesity, Class I, BMI 30-34.9 01/12/2021 GI bleed 01/12/2021 01/14/2021 Acute blood loss anemia 01/12/2021 01/15/20 21 LLQ pain 09/05/2017 04/09/2021 Overview: Added automatically from request for surgery [id number] 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, estrogen receptor positive 06/03/2017 07/06/2021 Personal history of breast cancer 12/18/2016 04/09/2021 Overview: Added automatically from request for surgery [id number] Permanent atrial fibrillation 12/26/2015 Diverticulitis of large [...] of this encounter (statuses as of 06/18/2022) [facility] History of Past illness Narrative* Problem Noted Date Resolved Date Dysuria 07/06/2021 07/08/2021 Obesity, Class I, BMI 30-34.9 01/12/2021 GI bleed 01/12/2021 01/14/2021 Acute blood loss anemia 01/12/2021 01/15/20 21 LLQ pain 09/05/2017 04/09/2021 Overview: Added automatically from request for surgery [id number] 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, estrogen receptor positive 06/03/2017 07/06/2021 Personal history of breast cancer 12/18/2016 04/09/2021 Overview: Added automatically from request for surgery [id number] Permanent atrial fibrillation 12/26/2015 Diverticulitis of large [...] of this encounter (statuses as of 08/29/2022) [facility] History of Past illness Narrative* Problem Noted Date Resolved Date Dysuria 07/06/2021 07/08/2021 Obesity, Class I, BMI 30-34.9 01/12/2021 GI bleed 01/12/2021 01/14/2021 Acute blood loss anemia 01/12/2021 01/15/20 21 LLQ pain 09/05/2017 04/09/2021 Overview: Added automatically from request for surgery [id number] 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, estrogen receptor positive 06/03/2017 07/06/2021 Personal history of breast cancer 12/18/2016 04/09/2021 Overview: Added automatically from request for surgery [id number] Permanent atrial fibrillation 12/26/2015 Diverticulitis of large [...] of this encounter (statuses as of 09/05/2022) [facility] History of Past illness Narrative* Problem Noted Date Resolved Date Dysuria 07/06/2021 07/08/2021 Obesity, Class I, BMI 30-34.9 01/12/20212 GI bleed 01/12/2021 01/14/2021 Acute blood loss anemia 01/12/2021 01/15/20 LLQ pain 09/05/2017 04/09/2021 Overview: Added automatically from request for surgery [id number] 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, estrogen receptor positive 06/03/2017 07/06/2021 Personal history of breast cancer 12/18/2016 04/09/2021 Overview: Added automatically from request for surgery [id number] Permanent atrial fibrillation 12/26/2015 Diverticulitis of large [...] of this encounter (statuses as of 09/20/2022) [facility] History of Past illness Narrative* Problem Noted Date Diagnosed Date Resolved Date Dysuria 07/06/2021 07/08/2021 Obesity, Class I, BMI 30-34.9 01/12/2021 04/09/2021 GI bleed 01/12/2021 01/14/2021 Acute blood loss anemia 01/12/202112/17 LLQ pain 09/05/2017 04/09/2021 Overview: Added automatically from request for surgery [id number] 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, estrogen receptor positive 06/03/2017 07/06/2021 Personal history of breast cancer 12/18/2016 04/09/2021 Overview: Added automatically from request for surgery [id number] Permanent atrial fibrillation 12/26/2015 07/01/2018 Diverticulitis of [...] of this encounter (statuses as of 09/25/2022) [facility] History of Past illness Narrative* Problem Noted Date Diagnosed Date Resolved Date Dysuria 07/06/2021 07/08/2021 Obesity, Class I, BMI 30-34.9 01/12/2021 04/09/2021 GI bleed 01/12/2021 01/14/2021 Acute blood loss anemia 01/12/202112/17 LLQ pain 09/05/2017 04/09/2021 Overview: Added automatically from request for surgery [id number] 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, estrogen receptor positive 06/03/2017 07/06/2021 Personal history of breast cancer 12/18/2016 04/09/2021 Overview: Added automatically from request for surgery [id number] Permanent atrial fibrillation 12/26/2015 07/01/2018 Diverticulitis of [...] dermatitis 04/25/2011 04/14/2013 Urgency of urination 02/13/2011 01/30/2 015 Female stress incontinence 02/13/2011 0 04/15/2014 [...] of this encounter (statuses as of 10/23/2022) [facility] History of Past illness Narrative* Problem Noted Date Diagnosed Date Resolved Date Dysuria 07/06/2021 07/08/2021 Obesity, Class I, BMI 30-34.9 01/12/2021 04/09/2021 GI bleed 01/12/2021 01/14/2021 Acute blood loss anemia 01/12/202112/17 LLQ pain 09/05/2017 04/09/2021 Overview: Added automatically from request for surgery [id number] 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, estrogen receptor positive 06/03/2017 07/06/2021 Personal history of breast cancer 12/18/2016 04/09/2021 Overview: Added automatically from request for surgery [id number] Permanent atrial fibrillation 12/26/2015 07/01/2018 Diverticulitis of [...] of this encounter (statuses as of 11/15/2022) [facility] History of Past illness Narrative* Problem Noted Date Diagnosed Date Resolved Date Dysuria 07/06/2021 07/08/2021 Obesity, Class I, BMI 30-34.9 01/12/2021 04/09/2021 GI bleed 01/12/2021 01/14/2021 Acute blood loss anemia 01/12/202112/17 LLQ pain 09/05/2017 04/09/2021 Overview: Added automatically from request for surgery [id number] 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, estrogen receptor positive 06/03/2017 07/06/2021 Personal history of breast cancer 12/18/2016 04/09/2021 Overview: Added automatically from request for surgery [id number] Permanent atrial fibrillation 12/26/2015 07/01/2018 Diverticulitis of [...] of this encounter (statuses as of 11/26/2022) [facility] History of Past illness Narrative* Problem Noted Date Diagnosed Date Resolved Date Dysuria 07/06/2021 07/08/2021 Obesity, Class I, BMI 30-34.9 01/12/2021 04/09/2021 GI bleed 01/12/2021 01/14/2021 Acute blood loss anemia 01/12/2021 10/3 03/2020 LLQ pain 09/05/2017 04/09/2021 Overview: Added automatically from request for surgery [id number] 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, estrogen receptor positive 06/03/2017 07/06/2021 Personal history of breast cancer 12/18/2016 04/09/2021 Overview: Added automatically from request for surgery [id number] Permanent atrial fibrillation 12/26/2015 07/01/2018 Diverticulitis of [...] of this encounter (statuses as of 11/27/2022) [facility] History of Past illness Narrative* Problem Noted Date Diagnosed Date Resolved Date Dysuria 07/06/2021 07/08/2021 Obesity, Class I, BMI 30-34.9 01/12/2021 04/09/2021 GI bleed 01/12/2021 01/14/2021 Acute blood loss anemia 01/12/202112/17 LLQ pain 09/05/2017 04/09/2021 Overview: Added automatically from request for surgery [id number] 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, estrogen receptor positive 06/03/2017 07/06/2021 Personal history of breast cancer 12/18/2016 04/09/2021 Overview: Added automatically from request for surgery [id number] Permanent atrial fibrillation 12/26/2015 07/01/2018 Diverticulitis of [...] of this encounter (statuses as of 12/14/2022) [facility] History of Past illness Narrative* Problem Noted Date Diagnosed Date Resolved Date Dysuria 07/06/2021 07/08/2021 Obesity, Class I, BMI 30-34.9 01/12/2021 04/09/2021 GI bleed 01/12/2021 01/14/2021 Acute blood loss anemia 01/12/2021 10/03/2020 LLQ pain 09/05/2017 04/09/2021 Overview: Added automatically from request for surgery [id number] 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, estrogen receptor positive (HCC) 06/03/2017 07/06/2021 Personal history of breast cancer 12/18/2016 04/09/2021 Overview: Added automatically from request for surgery [id number] Permanent atrial fibrillation 12/26/2015 07/01/2018 Diverticulitis of [...] of this encounter (statuses as of 12/18/2022) [facility] History of Past illness Narrative* Problem Noted Date Diagnosed Date Resolved Date Dysuria 07/06/2021 07/08/2021 Obesity, Class I, BMI 30-34.9 01/12/2021 04/09/2021 GI bleed 01/12/2021 01/14/2021 Acute blood loss anemia 01/12/202112/17 LLQ pain 09/05/2017 04/09/2021 Overview: Added automatically from request for surgery [id number] 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, estrogen receptor positive (HCC) 06/03/2017 07/06/2021 Personal history of breast cancer 12/18/2016 04/09/2021 Overview: Added automatically from request for surgery [id number] Permanent atrial fibrillation 12/26/2015 07/01/2018 Diverticulitis of [...] of this encounter (statuses as of 12/21/2022) [facility] History of Past illness Narrative* Problem Noted Date Diagnosed Date Resolved Date Dysuria 07/06/2021 07/08/2021 Obesity, Class I, BMI 30-34.9 01/12/2021 04/09/2021 GI bleed 01/12/2021 01/14/2021 Acute blood loss anemia 01/12/202112/17 LLQ pain 09/05/2017 04/09/2021 Overview: Added automatically from request for surgery [id number] 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, estrogen receptor positive (HCC) 06/03/2017 07/06/2021 Personal history of breast cancer 12/18/2016 04/09/2021 Overview: Added automatically from request for surgery [id number] Permanent atrial fibrillation 12/26/2015 07/01/2018 Diverticulitis of [...] of this encounter (statuses as of 01/14/2023) [facility] History of Past illness Narrative* Problem Noted Date Diagnosed Date Resolved Date Dysuria 07/06/2021 07/08/2021 Obesity, Class I, BMI 30-34.9 01/12/2021 04/09/2021 GI bleed 01/12/2021 01/14/2021 Acute blood loss anemia 01/12/202112/17 LLQ pain 09/05/2017 04/09/2021 Overview: Added automatically from request for surgery [id number] 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, estrogen receptor positive 06/03/2017 07/06/2021 Personal history of breast cancer 12/18/2016 04/09/2021 Overview: Added automatically from request for surgery [id number] Permanent atrial fibrillation 12/26/2015 07/01/2018 Diverticulitis of [...] of this encounter (statuses as of 01/19/2023) [facility] History of Past illness Narrative* Problem Noted Date Diagnosed Date Resolved Date Dysuria 07/06/2021 07/08/2021 Obesity, Class I, BMI 30-34.9 01/12/2021 04/09/2021 GI bleed 01/12/2021 01/14/2021 Acute blood loss anemia 01/12/202112/17 LLQ pain 09/05/2017 04/09/2021 Overview: Added automatically from request for surgery [id number] 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, estrogen receptor positive 06/03/2017 07/06/2021 Personal history of breast cancer 12/18/2016 04/09/2021 Overview: Added automatically from request for surgery [id number] Permanent atrial fibrillation 12/26/2015 07/01/2018 Diverticulitis of [...] of this encounter (statuses as of 01/19/2023) [facility]04[facility] History of Past illness Narrative* Problem Noted Date Diagnosed Date Resolved Date Dysuria 07/06/2021 07/08/2021 Obesity, Class I, BMI 30-34.9 01/12/2021 04/09/2021 GI bleed 01/12/2021 01/14/2021 Acute blood loss anemia 01/12/202112/17 LLQ pain 09/05/2017 04/09/2021 Overview: Added automatically from request for surgery [id number] 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, estrogen receptor positive (HCC) 06/03/2017 07/06/2021 Personal history of breast cancer 12/18/2016 04/09/2021 Overview: Added automatically from request for surgery [id number] Permanent atrial fibrillation 12/26/2015 07/01/2018 Diverticulitis of [...] of this encounter (statuses as of 02/12/2023) [facility] History of Past illness Narrative* Problem Noted Date Diagnosed Date Resolved Date Dysuria 07/06/2021 07/08/2021 Obesity, Class I, BMI 30-34.9 01/12/2021 04/09/2021 GI bleed 01/12/2021 01/14/2021 Acute blood loss anemia 01/12/202112/17 LLQ pain 09/05/2017 04/09/2021 Overview: Added automatically from request for surgery [id number] 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, estrogen receptor positive (HCC) 06/03/2017 07/06/2021 Personal history of breast cancer 12/18/2016 04/09/2021 Overview: Added automatically from request for surgery [id number] Permanent atrial fibrillation 12/26/2015 07/01/2018 Diverticulitis of [...] as of this encounter (statuses as of 04/25/2023) [facility] History of Past illness Narrative* Problem Noted Date Diagnosed Date Resolved Date Dysuria 07/06/2021 07/08/2021 Obesity, Class I, BMI 30-34.9 01/12/2021 04/09/2021 GI bleed 01/12/2021 01/14/2021 Acute blood loss anemia 01/12/2021/03/2020 LLQ pain 09/05/2017 04/09/2021 Overview: Added automatically from request for surgery [id number] 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, estrogen receptor positive (HCC) 06/03/2017 07/06/2021 Personal history of breast cancer 12/18/2016 04/09/2021 Overview: Added automatically from request for surgery [id number] Permanent atrial fibrillation 12/26/2015 07/01/2018 Diverticulitis of [...] as of this encounter (statuses as of 04/30/2023) [facility]04[facility] Miscellaneous Notes* Telephone Encounter - Coreen Concepcion MD - 07/06/2021 12:10 PM EDT Had spoken to Dr. Turk regarding her plan- ERCP with prophylactic sphincterotomy and referral for cholecystectomy at [facility]. Unfortunately she will likely become obstructed regardless of ERCP because of this 3.3 cm stone. Called patient's daughter (patient did not answer), patient is currently in Emergency department with worsening pain, fevers. Will likely be admitted, high concern for biliary obstruction. documented in this encounterTr[facility] History of Present illness Narrative* Johnny Turk MD - 07/05/2021 4:58 PM EDT HISTORY AND PHYSICAL Christian Quiroz Mariellejuaquin 1935 REFERRING PHYSICIAN: Self CHIEF COMPLAINT: Consult [...] had black tarry stools and presented to [facility] for post polypectomy bleed. At the time [...] the recent CT scan at [facility] versus the prior scan, I elected to obtain an ultrasound and repeat laboratory studies. The CT scan from [facility] was supposed to be loaded into [...] 99 74 - 99 mg/dL Final The [place] [employer] (ADA) provides guidance for cutoff [...] Standards of Medical Care in Diabetes 2016, [place] [employer]. Diabetes Care. 2016.39(Suppl 1). BUN [...] addended to a previously final verified report. [place]% 07/05/2021 14.0 % Final This is an addended report. These results have been addended to a previously final verified report. Abs [place] 07/05/2021 1.22 (A) <0.87 k/uL Final This [...] Referred by noted on Friday to her unit aide tech. She question whether the patient truly had [...] UTI (lower urinary tract infection) 2012 frequent OPERATIONS: PAST SURGICAL HISTORY Procedure Laterality [...] (COUMADIN) 1 mg tablet 2 mg every Fri; 1 mg all other days 90 tablet [...] mouth once daily. Taking 1000 glucosamine/msm/chondroitin A (PWQPKMYGYLK-BRSEDY-PJK ORAL) Take 1 capsule by mouth once [...] Age of Onset other ( age 60 OR) Mother hypertension and TB other (pancreatic cancer) [...] F), height 167.6 cm (5' 6 ), hkloqy62.8 kg (176 lb), SpO2 100 %. Body [...] her CT scan images from [facility] loaded in the [facility] system and compare this to the [...] findings have been communicated to Dr. Ariel aSinz MD via shared medical record. This note will be forwarded to Dr. Ariel Sainz MD. She is to follow-up with me as needed. Johnny Turk MD documented in this encounterTr[facility]04[facility] Miscellaneous Notes* Telephone Encounter - Bernie Aguilar LPN - 07/05/2021 4:38 PM EDT Eloisa notified, verbalized understanding. Eloisa states that patient will be admitted into [facility] tomorrow. Just an FYI * Telephone Encounter - Ambar Negrete APRN.OIL WELL CABLE TOOL OPERATOR - 07/05/2021 3:35 PM EDT PCP Ariel Sainz MD Seen by Alma Ta 07/03/2021. Seen by Dr Turk today for abdominal pain / gallstones. Please let her know short term norco provided. PDMP website checked and validated. All prescriptions have been APPROPRIATELY filled. No suspiciousactivity was identified. 07/05/2021 by Ambar Negrete APRN.CNS * Telephone Encounter - Aliyah Oliva LPN - 07/05/2021 1:15 PM EDT Pt's daughter El[facility]isa called [facility]. Reports pt is ill [...] term for pain? Pt uses [facility] in [place]. Please call daughter Eloisa to notify her. Eloisa also asking for message to go to Dr Turk since pt was seen by him today. Aliyah Oliva LPN documented in this encounterTr[facility]ull [facility]04-[facility] History of Present illness Narrative* Alma Ta, SILVIO.PAINT PREPPER - 07/03/2021 12:15 PM EDT CC: Patient [...] Benign neoplasm of colon C. difficile colitis 2013 Coronary artery disease Diverticulitis 2009, 2012 Diverticulosis [...] mouth once daily. Taking 1000 glucosamine/msm/chondroitin A (XIOTJXXCSCC-YHBLUN-VWL ORAL) Take 1 capsule by mouth once [...] Age of Onset other ( age 60 OR) Mother hypertension and TB other (pancreatic cancer) [...] abdominal tenderness DATA REVIEWED: Outside chart from [facility] ER reviewed. ASSESSMENT/PLAN: 1. Dysuria - ICD9: 788.1, ICD10: R30.0 (primary diagnosis) Chronic. Urine cultures negative for UTI and no improvement with antibiotics. Differentials includeyeast infection, atrophic vaginitis, interstitial cystitis Start Diflucan for possible yeast infection Follow-up with PANTOGRAPH OPERATOR as scheduled next week and discuss further [...] Patient agreeable to treatment plan. Alma Ta APRN.INGE documented in this encounterTr[facility]ull [facility]04-[facility]22 Miscellaneous Notes* Telephone Encounter - Madonna Dickson LPN - 07/03/2021 11:01 AM EDT Called [facility] medical records to fax ER visit from 07/02/21 . * Telephone Encounter - Madonna Dickson LPN - 07/03/2021 8:59 AM EDT Patient called wants to talk to Dr Turk, was in [facility] ER last night 07/02/21, [facility] wanted to do surgery on gallbladder, patient declined, states wants to f/up with Dr Turk before proceeding. Please advise. 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 documented in this encounterTrumbull [facility] Hospital04-06-2022 Miscellaneous Notes* Telephone Encounter - Jerrica Rothman RPh - 06/20/2021 4:55 PM EDT Patient was due to test INR today will continue to monitor for results. Jerrica Rothman PharmD documented in this encounterTrumbull [facility]04-[facility]-2022 Miscellaneous Notes* Telephone Encounter - Page [...] visit. Basilia Cueto APRN.CNP documented in this encounterTrumbull [facility] Hospital03-22-2022 History of Present illness Narrative* Aby Bruner DO - 06/05/2021 11:00 AM EDT This office note has been dictated. Aby Bruner DO documented in this encounterTrumbull [facility] Hospital03-[facility]22 History of Present illness Narrative* RT Sarha(R) - 05/17/2021 5:46 PM EST Radiology Service [...] 17, 2021 5:46 PM documented in this encounterTrumbull [facility] Hospital11-30-2021 Miscellaneous Notes* Telephone Encounter - Galina [...] Are you able to send refills to [facility]? Please advise patient. documented in this encounterTrumbull [facility] Hospital10-31-2021 NoteHNO ID: [id number] Author: Johnny Turk MD Service: General Surgery [...] VTE Prophylaxis/Anticoagulants 01/12/211999 activity - mobilize patient (fl,oh) VTE Prophylaxis: VTE prophylaxis appropriate SIGNATURE: Johnny Turk MD PATIENT NAME: Christian Landrum DATE: January 14, 2021 TIME: 12:07 PMSt[facility] HospitalJhgqsuij96-09-1820 NoteHNO ID: [id number] Author: Wendy Bonilla DO Service: Hospital Medicine Author Type: Physician Type: Progress Notes Filed: 01/13/2021 4:03 PM Note Text: DEPARTMENT OF HOSPITAL MEDICINE PROGRESS NOTE SERVICE DATE: 01/13/2021 SERVICE TIME: 3:50 PM Hospital Medicine/Primary Attending: Wendy Bonilla DO NIGHT AND WEEKEND COVERAGE: [place] COVERAGE: Days: [phone], please page attending physician. Nights: [phone], please page [facility] [facility] Night coverage pager [phone]. Subjective INTERVAL HPI: feels well today. No [...] fatty liver in the past. Also on jail methotrexate. Noted positive Hepatitis B core ab I ordered the rest of the hepatitis serologies her Digital Imaging Technician recommended and she will need to f/u with GI outpatient Endometrial thickening on ultrasound Obtain transvaginal US If thickened endometrium then she needs to see (more content not included)... [facility] [id number] NoteHNO ID: [id number] Author: CLIFFORD Ramires Service: Radiology Author Type: Clinical Industrial Economics Teacher Type: Progress Notes Filed: 01/12/2021 4:19 [...] Landrum DATE: January 12, 2021 TIME: 4:06 PMSt. Rita'S HospitalKikzccxi22-12-1066 History of Past illness Narrative* Problem Noted Date Resolved Date Obesity, Class I, BMI 30-34.9 01/12/2021 GI bleed 01/12/2021 01/14/2021 Acute blood loss anemia 01/12/2021 01/15/20 21 LLQ pain 09/05/2017 04/09/2021 Overview: Added automatically from request for surgery [id number] Personal history of breast cancer 12/18/2016 04/09/2021 Overview: Added automatically from request for surgery [id number] Permanent atrial fibrillation 12/26/2015 Diverticulitis of large [...] of this encounter (statuses as of 06/05/2021) [facility] History of Past illness Narrative* Problem Noted Date Resolved Date Obesity, Class I, BMI 30-34.9 01/12/2021 GI bleed 01/12/2021 01/14/2021 Acute blood loss anemia 01/12/2021 01/15/20 21 LLQ pain 09/05/2017 04/09/2021 Overview: Added automatically from request for surgery [id number] Personal history of breast cancer 12/18/2016 04/09/2021 Overview: Added automatically from request for surgery [id number] Permanent atrial fibrillation 12/26/2015 Diverticulitis of large [...] of this encounter (statuses as of 06/19/2021) [facility] History of Past illness Narrative* Problem Noted Date Resolved Date Obesity, Class I, BMI 30-34.9 01/12/2021 GI bleed 01/12/2021 01/14/2021 Acute blood loss anemia 01/12/2021 01/15/20 21 LLQ pain 09/05/2017 04/09/2021 Overview: Added automatically from request for surgery [id number] Personal history of breast cancer 12/18/2016 04/09/2021 Overview: Added automatically from request for surgery [id number] Permanent atrial fibrillation 12/26/2015 Diverticulitis of large [...] of this encounter (statuses as of 06/22/2021) [facility] History of Past illness Narrative* Problem Noted Date Resolved Date Obesity, Class I, BMI 30-34.9 01/12/2021 GI bleed 01/12/2021 01/14/2021 Acute blood loss anemia 01/12/2021 01/15/20 21 LLQ pain 09/05/2017 04/09/2021 Overview: Added automatically from request for surgery [id number] Personal history of breast cancer 12/18/2016 04/09/2021 Overview: Added automatically from request for surgery [id number] Permanent atrial fibrillation 12/26/2015 Diverticulitis of large [...] of this encounter (statuses as of 06/26/2021) [facility] History of Past illness Narrative* Problem Noted Date Resolved Date Obesity, Class I, BMI 30-34.9 01/12/2021 GI bleed 01/12/2021 01/14/2021 Acute blood loss anemia 01/12/2021 01/15/20 21 LLQ pain 09/05/2017 04/09/2021 Overview: Added automatically from request for surgery [id number] Personal history of breast cancer 12/18/2016 04/09/2021 Overview: Added automatically from request for surgery [id number] Permanent atrial fibrillation 12/26/2015 Diverticulitis of large [...] of this encounter (statuses as of 07/03/2021) [facility] History of Past illness Narrative* Problem Noted Date Resolved Date Obesity, Class I, BMI 30-34.9 01/12/2021 GI bleed 01/12/2021 01/14/2021 Acute blood loss anemia 01/12/2021 01/15/20 21 LLQ pain 09/05/2017 04/09/2021 Overview: Added automatically from request for surgery [id number] Personal history of breast cancer 12/18/2016 04/09/2021 Overview: Added automatically from request for surgery [id number] Permanent atrial fibrillation 12/26/2015 Diverticulitis of large [...] of this encounter (statuses as of 07/05/2021) [facility] of Past illness Narrative* Problem Noted Date Resolved Date Obesity, Class I, BMI 30-34.9 01/12/2021 GI bleed 01/12/2021 01/14/2021 Acute blood loss anemia 01/12/2021 01/15/20 LLQ pain 09/05/2017 04/09/2021 Overview: Added automatically from request for surgery [id number] Personal history of breast cancer 12/18/2016 04/09/2021 Overview: Added automatically from request for surgery [id number] Permanent atrial fibrillation 12/26/2015 Diverticulitis of large [...] of this encounter (statuses as of 07/05/2021) [facility] of Past illness Narrative* Problem Noted Date Resolved Date Obesity, Class I, BMI 30-34.9 01/12/2021 GI bleed 01/12/2021 01/14/2021 Acute blood loss anemia 01/12/2021 01/15/20 LLQ pain 09/05/2017 04/09/2021 Overview: Added automatically from request for surgery [id number] Personal history of breast cancer 12/18/2016 04/09/2021 Overview: Added automatically from request for surgery [id number] Permanent atrial fibrillation 12/26/2015 Diverticulitis of large [...] of this encounter (statuses as of 07/06/2021) [facility] NoteHNO ID: [id number] Author: ANIKET Martin Service: Radiology Author Type: Clinical Industrial Economics Teacher Type: Progress Notes Filed: 01/10/2021 10:31 [...] STATUS: Discontinued PROCEDURE TYPE: NM Stress: 12.1mCi [id number] was administered IV for Rest Imaging at 9:05 by ANIKET Martin. 31.2 mCi [id number] was administered IV for Stress Imaging at 10:02 by ANIKET Martin. PATIENT DISCHARGED TO: Ambulatory patient, left [place] department area. A Diagnostic radioactive procedure has taken place, with no further precautions necessary other than routine body substance precautions. 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 Long-term (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 anticoagulants Paroxysmal atrial fibrillation (HCC) Atrial fibrillation [facility]* Diagnosis Malignant neoplasm of lower-inner quadrant of right breast of female, estrogen receptor positive (HCC)- Primary [facility] Diagnosis Dysuria- Primary Right upper quadrant abdominal pain Abdominal pain, right upper quadrant Chronic anticoagulation Long-term (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 anticoagulants [facility]* Diagnosis Polymyalgia rheumatica (HCC)- Primary Polymyalgia rheumatica [facility]* Diagnosis Calculus of gallbladder without cholecystitis without obstruction- Primary Calculus of gallbladder without mention of cholecystitis or obstruction Secondary biliary cirrhosis (HCC) Biliary cirrhosis [facility]* Diagnosis Malignant neoplasm of lower-inner quadrant of right breast of female, estrogen receptor positive (HCC)- Primary [facility]* 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 Long-term (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 anticoagulants Paroxysmal atrial fibrillation (HCC) Atrial fibrillation [facility] History of recent hospitalization- Primary Personal history of unspecified disease Dysuria Recurrent UTI Urinary tract infection, site not specified Cirrhosis of liver with ascites, unspecified hepatic cirrhosis type (HCC) Biliary colic Calculus of gallbladder without mention of cholecystitis or obstruction [facility]* Diagnosis Dysuria- Primary [facility]* Diagnosis long-term (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 anticoagulants Long-term (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 anticoagulants Paroxysmal atrial fibrillation (HCC) Atrial fibrillation [facility]* Diagnosis Acute cystitis without hematuria- Primary Acute cystitis PMB (postmenopausal bleeding) Postmenopausal bleeding Endometrial thickening on ultrasound [facility]* 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 Long-term (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 anticoagulants Paroxysmal atrial fibrillation (HCC) Atrial fibrillation [facility]* Diagnosis PMB (postmenopausal bleeding)- Primary Postmenopausal bleeding Endometrial thickening on ultrasound [facility]* Diagnosis Old laceration of cervix uteri- Primary Old laceration of cervix Abnormal uterine bleeding (AUB) documented [facility]* Diagnosis Recurrent UTI- Primary Urinary tract infection, site not specified Mixed stress and urge urinary incontinence Mixed incontinence urge and stress (male)(female) Old laceration of cervix uteri Old laceration of cervix [facility]* Diagnosis long-term (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 anticoagulants Long-term (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 anticoagulants Paroxysmal atrial fibrillation (HCC) Atrial fibrillation [facility]* Diagnosis Paroxysmal atrial fibrillation (HCC)- Primary Atrial fibrillation Rheumatic mitral regurgitation Rheumatic mitral insufficiency Essential hypertension Unspecified essential hypertension Mixed hyperlipidemia Hyperglycemia Other abnormal glucose PAF (paroxysmal atrial fibrillation) (HCC) Atrial fibrillation Shortness of breath SVT (supraventricular tachycardia) (HCC) Other specified cardiac dysrhythmias documented [facility]* Diagnosis Old laceration of cervix uteri- Primary Old laceration of cervix [facility]* Diagnosis Malignant neoplasm of lower-inner quadrant of right breast of female, estrogen receptor positive (HCC)- Primary [facility]* Diagnosis Malignant neoplasm of lower-inner quadrant of right breast of female, estrogen receptor positive (HCC)- Primary [facility]* Diagnosis Recurrent UTI- Primary Urinary tract infection, site not specified History of ESBL E. coli infection Personal history of other infectious and parasitic disease Mixed stress and urge urinary incontinence Mixed incontinence urge and stress (male)(female) [facility]* Diagnosis Recurrent UTI Urinary tract infection, site not specified History of ESBL E. coli infection Personal history of other infectious and parasitic disease [facility]* Diagnosis Chronic anticoagulation- Primary Long-term (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 anticoagulants [facility]* Diagnosis Malignant neoplasm of lower-inner quadrant of right breast of female, estrogen receptor positive (HCC)- Primary Chronic anticoagulation Long-term (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 anticoagulants [facility]* 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 Long-term (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 anticoagulants Paroxysmal atrial fibrillation (HCC) Atrial fibrillation [facility]* Diagnosis BRBPR (bright red blood per rectum)- Primary Hemorrhage of rectum and anus long-term (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 anticoagulants Long-term (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 anticoagulants Paroxysmal atrial fibrillation (HCC) Atrial fibrillation [facility]* Diagnosis long-term (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 anticoagulants Long-term (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 anticoagulants Paroxysmal atrial fibrillation (HCC) Atrial fibrillation [facility]* Diagnosis Malignant neoplasm of lower-inner quadrant of right breast of female, estrogen receptor positive (HCC)- Primary [facility]* Diagnosis Malignant neoplasm of lower-inner quadrant of right breast of female, estrogen receptor positive (HCC)- Primary [facility]* Diagnosis Recurrent UTI- Primary Urinary tract infection, site not specified History of ESBL E. coli infection Personal history of other infectious and parasitic disease Vaginal atrophy Postmenopausal atrophic vaginitis [facility]* Diagnosis Primary osteoarthritis of both knees- Primary Primary localized osteoarthrosis, lower leg Chronic [facility] of right [facility] Anemia, unspecified type- [facility] Diagnosis Malignant neoplasm of lower-inner quadrant of right breast of female, estrogen receptor positive (HCC)- [facility] Diagnosis 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 (chronic) [facility] Diagnosis Malignant neoplasm of lower-inner quadrant of right breast of female, estrogen receptor positive (HCC)- Primary 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 blood loss (chronic) [facility] Diagnosis 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 (chronic) [facility] Diagnosis 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 blood loss (chronic) [facility] Diagnosis 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 blood loss (chronic) Iron malabsorption Other specified intestinal malabsorption [facility] Diagnosis 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 Other specified intestinal malabsorption [facility] Diagnosis 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 Other specified intestinal malabsorption [facility] Diagnosis 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 Other specified intestinal malabsorption [facility] Diagnosis 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 (chronic) Malignant neoplasm of lower-inner quadrant of right breast of female, estrogen receptor positive (HCC) [facility] Diagnosis 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 Other specified intestinal malabsorption [facility] Diagnosis Chest pain, unspecified type- Primary Paroxysmal atrial fibrillation (HCC) Atrial fibrillation Rheumatic mitral regurgitation Rheumatic mitral insufficiency Essential hypertension Unspecified essential hypertension Mixed hyperlipidemia Obstructive sleep apnea syndrome Obstructive sleep apnea (adult) (pediatric) Shortness of breath [facility] Diagnosis Personal history of breast cancer- Primary Personal history of malignant neoplasm of breast Rib pain on right side Chest pain, unspecified [facility] Personal history of breast cancer- Primary Personal history of malignant neoplasm of breast [facility] Diagnosis Personal history of breast cancer- Primary Personal history of malignant neoplasm of breast 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 blood loss (chronic) [facility] Diagnosis Paroxysmal atrial fibrillation (HCC)- Primary Atrial fibrillation Rheumatic mitral regurgitation Rheumatic mitral insufficiency Essential hypertension Unspecified essential hypertension Mixed hyperlipidemia Obstructive sleep apnea syndrome Obstructive sleep apnea (adult) (pediatric) Shortness of breath PAF (paroxysmal atrial fibrillation) (HCC) Atrial fibrillation SVT (supraventricular tachycardia) (HCC) Other specified cardiac dysrhythmias [facility] Diagnosis Encounter for care related to vascular access port- Primary Fitting and adjustment of vascular catheter [facility] Diagnosis Pain in right wrist- Primary Pain in joint, forearm Primary osteoarthritis of both knees Primary localized osteoarthrosis, lower leg [facility] arthritis Unspecified arthropathy, hand [facility] Diagnosis Essential hypertension- Primary Unspecified essential hypertension Paroxysmal atrial fibrillation (HCC) Atrial fibrillation [facility] Diagnosis 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 (chronic) [facility] Diagnosis 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 (chronic) Personal history of breast cancer Personal history of malignant neoplasm of breast Malignant neoplasm of lower-inner quadrant of right breast of female, estrogen receptor positive (HCC) [facility] Diagnosis Personal history of breast cancer Personal history of malignant neoplasm of breast Rib pain on right side Chest pain, unspecified [facility] Diagnosis Pain in right wrist Pain in joint, forearm [facility] Personal history of breast cancer- Primary Personal history of malignant neoplasm of breast 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 blood loss (chronic) documented in this encounter [facility] for referral (narrative)* Outpatient Procedure (Routine) - Closed Specialty Diagnoses / Procedures Referred By Michael t Referred To [facility] Diagnoses Paroxysmal atrial fibrillation (HCC) Rheumatic mitral regurgitation Essential hypertension Mixed hyperlipidemia Hyperglycemia PAF (paroxysmal atrial fibrillation) (HCC) Shortness of breath SVT (supraventricular tachycardia) (HCC) Procedures ECG COMPLETE ECG ROUTINE ECG W/LEAST 12 LDS W/I&R Cecilio Ibarra DO [address] [address] [facility] [address] [place] [address] Referral ID Status Reason Start Date Expiration Date V isits Requested Visits Authorized [id number] Closed Auto-Generate d Referral 09/05/2021 09/05/2022 1 1 [facility] for referral (narrative)* Diagnostic Procedure Only (Routine) - Closed Specialty Diagnoses / Procedures Referred By Contac t Referred To Contact XR IMAGING Diagnoses Personal history of breast cancer Rib pain on right side Procedures XR RIBS 2V AP/OBL RIGHT RADEX RIBS UNILATERAL 2 VIEWS Angelic Arreola APRN.PAINT PREPPER [address] [place] [address] Xr Imaging Referral ID Status Reason Start Date Expiration Date V isits Requested Visits Authorized [id number] Closed Auto-Generate d Referral 06/05/2022 07/05/2023 1 1 [facility] for referral (narrative)* Diagnostic Procedure Only (Routine) - Closed Specialty Diagnoses / Procedures Referred By Contac t Referred To Contact XR IMAGING Diagnoses Pain in right wrist Procedures XR WRIST GENERAL 3V PA/LAT/OBL RIGHT RADEX WRIST COMPLETE MINIMUM 3 VIEWS Stella Preciado PA-C [address] [place] [address] [place] [address] Referral ID Status Reason Start Date Expiration Date V isits Requested Visits Authorized [id number] Closed Auto-Generate d Referral 11/25/2022 12/25/2023 1 1 [facility] for referral (narrative)* Diagnostic Procedure Only (Routine) - Closed Specialty Diagnoses / Procedures Referred By Contac t Referred To Contact XR IMAGING Diagnoses Personal history of breast cancer Rib pain on right side Procedures XR RIBS 2V AP/OBL RIGHT RADEX RIBS UNILATERAL 2 VIEWS Angelic Arreola APRN.PAINT PREPPER [address] [place] [address] [place] [address] Referral ID Status Reason Start Date Expiration Date V isits Requested Visits Authorized [id number] Closed Auto-Generate d Referral 06/05/2022 07/05/2023 1 1 [facility] for referral (narrative)* Diagnostic Procedure Only (Routine) - Closed Specialty Diagnoses / Procedures Referred By Contac t Referred To Contact XR IMAGING Diagnoses Pain in right wrist Procedures XR WRIST GENERAL 3V PA/LAT/OBL RIGHT RADEX WRIST COMPLETE MINIMUM 3 VIEWS Stella Preciado PA-C [address] [place] [address] [place] [address] Referral ID Status Reason Start Date Expiration Date V isits Requested Visits Authorized [id number] Closed Auto-Generate d Referral 11/25/2022 12/25/2023 1 1 [facility] for visit Narrative* Diagnostic Procedure Only (Routine) - Closed Specialty Diagnoses / Procedures Referred By Contac t Referred To Contact XR IMAGING Diagnoses Personal history of breast cancer Rib pain on right side Procedures XR RIBS 2V AP/OBL RIGHT RADEX RIBS UNILATERAL 2 VIEWS Angelic Arreola APRN.PAINT PREPPER [address] [place] [address] [place] [address] Referral ID Status Reason Start Date Expiration Date V isits Requested Visits Authorized [id number] Closed Auto-Generate d Referral 06/05/2022 07/05/2023 1 1 [facility] for visit Narrative* Diagnostic Procedure Only (Routine) - Closed Specialty Diagnoses / Procedures Referred By Contac t Referred To Contact XR IMAGING Diagnoses Pain in right wrist Procedures XR WRIST GENERAL 3V PA/LAT/OBL RIGHT RADEX WRIST COMPLETE MINIMUM 3 VIEWS Stella Preciado PA-C [address] [place] [address] [place] [address] Referral ID Status Reason Start Date Expiration Date V isits Requested Visits Authorized [id number] Closed Auto-Generate d Referral 11/25/2022 12/25/2023 1 1 [facility] Summary Purpose Family History No Family History Records FoundNo Family History Records FoundNo Family History Records FoundNo Family History Records Found Advance Directives No Advanced Directives Records FoundDocuments on File Type Date Recorded Patient Prospecting Driller Expl anation Advance Directive(s) 01/12/2021 1:54 PM [...] Documents on File Type Date Recorded Patient Prospecting Driller Expl anation Advance Directive(s) 07/06/2021 12:56 PM [...] Maker Relationship: Health Ca re Power of Lens Molder Agent Latest Code Status on File Code Status Date Activated Date Inactivated Comments DNR-CCA 07/06/2021 6:27 PM 2021 5:16 PM Documents on File Type Date Recorded Patient Prospecting Driller Expl anation Advance Directive(s) 08/12/2021 4:09 PM [...] Documents on File Type Date Recorded Patient Prospecting Driller Expl anation Advance Directive(s) 08/12/2021 4:09 PM [...] Documents on File Type Date Recorded Patient Prospecting Driller Expl anation Advance Directive(s) 09/28/2020 12:50 PM Advance Directive(s) 12/28/2008 Documents on File Type Date Recorded Patient Prospecting Driller Expl anation Advance Directive(s) 09/28/2020 12:50 PM [...] Decision Maker Relationship: Health Care Power of Lens Molder Agent Latest Code Status on File Code [...] Decision Maker Relationship: Health Care Power of Lens Molder Agent Health Concerns Infection Onset Date Last [...] Referral Specialty Diagnoses / Procedures Referred By Contac t Referred To Contact Diagnoses Recurrent UTI Mixed stress and urge urinary incontinence Procedures CONSULT TO URO GYNECOLOGY OFFICE/OUTPATIENT [facility] 60-74 MINUTES Mona Hebert MD [address] [place] [address] Referral ID Status Reason Start Date Expiration Date Visits Requested Visits Authorized [id number] Authorized PCP Requested Referral Auto-Generate d Referral 08/30/2021 11/28/2021 1 1 Specialty Diagnoses / Procedures Referred By Contac t Referred To Contact Infectious Diseases Diagnoses Recurrent UTI History of ESBL E. coli infection Procedures CONSULT TO INFECTIOUS DISEASES OFFICE/OUTPATIENT [facility] 60-74 MINUTES Basilia Hernández MD [address] [facility] [address] [place] [address] Referral ID Status Reason Start Date Expiration Date Visits Requested Visits Authorized [id number] Authorized PCP Requested Referral 09/26/2021 09/26/2022 1 [...] DATE CREATED AUTHOR AUTHOR'S ORGANIZ ATION 08/28/2021 [facility] DATE CREATED AUTHOR AUTHOR'S ORGANIZ ATION 01/07/2022 [facility] DATE CREATED AUTHOR AUTHOR'S ORGANIZ ATION 05/01/2023 [facility] Source Comments (unrecognize d section and content) In the event this informatio n is protected by the Federal Confidentiality of Alcohol and Drug Abuse Patient Records regulations: The Federal rules restrict any use of the information to criminally investigate or prosecute any alcohol or drug abuse patient.[facility] the event this information is protected by the Federal Confidentiality of Alcohol and Drug Abuse Patient Records regulations: The Federal rules restrict any use of the information to criminally investigate or prosecute any alcohol or drug abuse patient.[facility] the event this information is protected by the Federal Confidentiality of Alcohol and Drug Abuse Patient Records regulations: The Federal rules restrict any use of the information to criminally investigate or prosecute any alcohol or drug abuse patient.[facility] the event this information is protected by the Federal Confidentiality of Alcohol and Drug Abuse Patient Records regulations: The Federal rules restrict any use of the information to criminally investigate or prosecute any alcohol or drug abuse patient.[facility] the event this information is protected by the Federal Confidentiality of Alcohol and Drug Abuse Patient Records regulations: The Federal rules restrict any use of the information to criminally investigate or prosecute any alcohol or drug abuse patient.[facility] the event this information is protected by the Federal Confidentiality of Alcohol and Drug Abuse Patient Records regulations: The Federal rules restrict any use of the information to criminally investigate or prosecute any alcohol or drug abuse patient.[facility] the event this information is protected by the Federal Confidentiality of Alcohol and Drug Abuse Patient Records regulations: The Federal rules restrict any use of the information to criminally investigate or prosecute any alcohol or drug abuse patient.[facility] the event this information is protected by the Federal Confidentiality of Alcohol and Drug Abuse Patient Records regulations: The Federal rules restrict any use of the information to criminally investigate or prosecute any alcohol or drug abuse patient.[facility] the event this information is protected by the Federal Confidentiality of Alcohol and Drug Abuse Patient Records regulations: The Federal rules restrict any use of the information to criminally investigate or prosecute any alcohol or drug abuse patient.[facility] the event this information is protected by the Federal Confidentiality of Alcohol and Drug Abuse Patient Records regulations: The Federal rules restrict any use of the information to criminally investigate or prosecute any alcohol or drug abuse patient.[facility] the event this information is protected by the Federal Confidentiality of Alcohol and Drug Abuse Patient Records regulations: The Federal rules restrict any use of the information to criminally investigate or prosecute any alcohol or drug abuse patient.[facility] the event this information is protected by the Federal Confidentiality of Alcohol and Drug Abuse Patient Records regulations: The Federal rules restrict any use of the information to criminally investigate or prosecute any alcohol or drug abuse patient.[facility] the event this information is protected by the Federal Confidentiality of Alcohol and Drug Abuse Patient Records regulations: The Federal rules restrict any use of the information to criminally investigate or prosecute any alcohol or drug abuse patient.[facility] the event this information is protected by the Federal Confidentiality of Alcohol and Drug Abuse Patient Records regulations: The Federal rules restrict any use of the information to criminally investigate or prosecute any alcohol or drug abuse patient.[facility] the event this information is protected by the Federal Confidentiality of Alcohol and Drug Abuse Patient Records regulations: The Federal rules restrict any use of the information to criminally investigate or prosecute any alcohol or drug abuse patient.[facility] the event this information is protected by the Federal Confidentiality of Alcohol and Drug Abuse Patient Records regulations: The Federal rules restrict any use of the information to criminally investigate or prosecute any alcohol or drug abuse patient.[facility] the event this information is protected by the Federal Confidentiality of Alcohol and Drug Abuse Patient Records regulations: The Federal rules restrict any use of the information to criminally investigate or prosecute any alcohol or drug abuse patient.[facility] the event this information is protected by the Federal Confidentiality of Alcohol and Drug Abuse Patient Records regulations: The Federal rules restrict any use of the information to criminally investigate or prosecute any alcohol or drug abuse patient.[facility] the event this information is protected by the Federal Confidentiality of Alcohol and Drug Abuse Patient Records regulations: The Federal rules restrict any use of the information to criminally investigate or prosecute any alcohol or drug abuse patient.[facility] the event this information is protected by the Federal Confidentiality of Alcohol and Drug Abuse Patient Records regulations: The Federal rules restrict any use of the information to criminally investigate or prosecute any alcohol or drug abuse patient.[facility] the event this information is protected by the Federal Confidentiality of Alcohol and Drug Abuse Patient Records regulations: The Federal rules restrict any use of the information to criminally investigate or prosecute any alcohol or drug abuse patient.[facility] the event this information is protected by the Federal Confidentiality of Alcohol and Drug Abuse Patient Records regulations: The Federal rules restrict any use of the information to criminally investigate or prosecute any alcohol or drug abuse patient.[facility] the event this information is protected by the Federal Confidentiality of Alcohol and Drug Abuse Patient Records regulations: The Federal rules restrict any use of the information to criminally investigate or prosecute any alcohol or drug abuse patient.[facility] the event this information is protected by the Federal Confidentiality of Alcohol and Drug Abuse Patient Records regulations: The Federal rules restrict any use of the information to criminally investigate or prosecute any alcohol or drug abuse patient.[facility] the event this information is protected by the Federal Confidentiality of Alcohol and Drug Abuse Patient Records regulations: The Federal rules restrict any use of the information to criminally investigate or prosecute any alcohol or drug abuse patient.[facility] the event this information is protected by the Federal Confidentiality of Alcohol and Drug Abuse Patient Records regulations: The Federal rules restrict any use of the information to criminally investigate or prosecute any alcohol or drug abuse patient.[facility] the event this information is protected by the Federal Confidentiality of Alcohol and Drug Abuse Patient Records regulations: The Federal rules restrict any use of the information to criminally investigate or prosecute any alcohol or drug abuse patient.[facility] the event this information is protected by the Federal Confidentiality of Alcohol and Drug Abuse Patient Records regulations: The Federal rules restrict any use of the information to criminally investigate or prosecute any alcohol or drug abuse patient.[facility]In the event this information is protected by the Federal Confidentiality of Alcohol and Drug Abuse Patient Records regulations: The Federal rules restrict any use of the information to criminally investigate or prosecute any alcohol or drug abuse patient.[facility] the event this information is protected by the Federal Confidentiality of Alcohol and Drug Abuse Patient Records regulations: The Federal rules restrict any use of the information to criminally investigate or prosecute any alcohol or drug abuse patient.[facility]In the event this information is protected by the Federal Confidentiality of Alcohol and Drug Abuse Patient Records regulations: The Federal rules restrict any use of the information to criminally investigate or prosecute any alcohol or drug abuse patient.[facility]In the event this information is protected by the Federal Confidentiality of Alcohol and Drug Abuse Patient Records regulations: The Federal rules restrict any use of the information to criminally investigate or prosecute any alcohol or drug abuse patient.[facility]In the event this information is protected by the Federal Confidentiality of Alcohol and Drug Abuse Patient Records regulations: The Federal rules restrict any use of the information to criminally investigate or prosecute any alcohol or drug abuse patient.[facility]In the event this information is protected by the Federal Confidentiality of Alcohol and Drug Abuse Patient Records regulations: The Federal rules restrict any use of the information to criminally investigate or prosecute any alcohol or drug abuse patient.[facility]In the event this information is protected by the Federal Confidentiality of Alcohol and Drug Abuse Patient Records regulations: The Federal rules restrict any use of the information to criminally investigate or prosecute any alcohol or drug abuse patient.[facility]In the event this information is protected by the Federal Confidentiality of Alcohol and Drug Abuse Patient Records regulations: The Federal rules restrict any use of the information to criminally investigate or prosecute any alcohol or drug abuse patient.[facility]In the event this information is protected by the Federal Confidentiality of Alcohol and Drug Abuse Patient Records regulations: The Federal rules restrict any use of the information to criminally investigate or prosecute any alcohol or drug abuse patient.[facility]In the event this information is protected by the Federal Confidentiality of Alcohol and Drug Abuse Patient Records regulations: The Federal rules restrict any use of the information to criminally investigate or prosecute any alcohol or drug abuse patient.[facility]In the event this information is protected by the Federal Confidentiality of Alcohol and Drug Abuse Patient Records regulations: The Federal rules restrict any use of the information to criminally investigate or prosecute any alcohol or drug abuse patient.[facility] HospitalIn the event this information is protected by the Federal Confidentiality of Alcohol and Drug Abuse Patient Records regulations: The Federal rules restrict any use of the information to criminally investigate or prosecute any alcohol or drug abuse patient.[facility] HospitalIn the event this information is protected by the Federal Confidentiality of Alcohol and Drug Abuse Patient Records regulations: The Federal rules restrict any use of the information to criminally investigate or prosecute any alcohol or drug abuse patient.[facility] HospitalIn the event this information is protected by the Federal Confidentiality of Alcohol and Drug Abuse Patient Records regulations: The Federal rules restrict any use of the information to criminally investigate or prosecute any alcohol or drug abuse patient.[facility] HospitalIn the event this information is protected by the Federal Confidentiality of Alcohol and Drug Abuse Patient Records regulations: The Federal rules restrict any use of the information to criminally investigate or prosecute any alcohol or drug abuse patient.[facility] HospitalIn the event this information is protected by the Federal Confidentiality of Alcohol and Drug Abuse Patient Records regulations: The Federal rules restrict any use of the information to criminally investigate or prosecute any alcohol or drug abuse patient.[facility] HospitalIn the event this information is protected by the Federal Confidentiality of Alcohol and Drug Abuse Patient Records regulations: The Federal rules restrict any use of the information to criminally investigate or prosecute any alcohol or drug abuse patient.[facility] HospitalIn the event this information is protected by the Federal Confidentiality of Alcohol and Drug Abuse Patient Records regulations: The Federal rules restrict any use of the information to criminally investigate or prosecute any alcohol or drug abuse patient.[facility] HospitalIn the event this information is protected by the Federal Confidentiality of Alcohol and Drug Abuse Patient Records regulations: The Federal rules restrict any use of the information to criminally investigate or prosecute any alcohol or drug abuse patient.[facility] HospitalIn the event this information is protected by the Federal Confidentiality of Alcohol and Drug Abuse Patient Records regulations: The Federal rules restrict any use of the information to criminally investigate or prosecute any alcohol or drug abuse patient.[facility] HospitalIn the event this information is protected by the Federal Confidentiality of Alcohol and Drug Abuse Patient Records regulations: The Federal rules restrict any use of the information to criminally investigate or prosecute any alcohol or drug abuse patient.[facility] HospitalIn the event this information is protected by the Federal Confidentiality of Alcohol and Drug Abuse Patient Records regulations: The Federal rules restrict any use of the information to criminally investigate or prosecute any alcohol or drug abuse patient.[facility] HospitalIn the event this information is protected by the Federal Confidentiality of Alcohol and Drug Abuse Patient Records regulations: The Federal rules restrict any use of the information to criminally investigate or prosecute any alcohol or drug abuse patient.[facility] HospitalIn the event this information is protected by the Federal Confidentiality of Alcohol and Drug Abuse Patient Records regulations: The Federal rules restrict any use of the information to criminally investigate or prosecute any alcohol or drug abuse patient.[facility] HospitalIn the event this information is protected by the Federal Confidentiality of Alcohol and Drug Abuse Patient Records regulations: The Federal rules restrict any use of the information to criminally investigate or prosecute any alcohol or drug abuse patient.[facility] HospitalIn the event this information is protected by the Federal Confidentiality of Alcohol and Drug Abuse Patient Records regulations: The Federal rules restrict any use of the information to criminally investigate or prosecute any alcohol or drug abuse patient.[facility] HospitalIn the event this information is protected by the Federal Confidentiality of Alcohol and Drug Abuse Patient Records regulations: The Federal rules restrict any use of the information to criminally investigate or prosecute any alcohol or drug abuse patient.[facility] HospitalIn the event this information is protected by the Federal Confidentiality of Alcohol and Drug Abuse Patient Records regulations: The Federal rules restrict any use of the information to criminally investigate or prosecute any alcohol or drug abuse patient.[facility] HospitalIn the event this information is protected by the Federal Confidentiality of Alcohol and Drug Abuse Patient Records regulations: The Federal rules restrict any use of the information to criminally investigate or prosecute any alcohol or drug abuse patient.[facility] HospitalIn the event this information is protected by the Federal Confidentiality of Alcohol and Drug Abuse Patient Records regulations: The Federal rules restrict any use of the information to criminally investigate or prosecute any alcohol or drug abuse patient.[facility] HospitalIn the event this information is protected by the Federal Confidentiality of Alcohol and Drug Abuse Patient Records regulations: The Federal rules restrict any use of the information to criminally investigate or prosecute any alcohol or drug abuse patient.[facility] HospitalIn the event this information is protected by the Federal Confidentiality of Alcohol and Drug Abuse Patient Records regulations: The Federal rules restrict any use of the information to criminally investigate or prosecute any alcohol or drug abuse patient.[facility] HospitalIn the event this information is protected by the Federal Confidentiality of Alcohol and Drug Abuse Patient Records regulations: The Federal rules restrict any use of the information to criminally investigate or prosecute any alcohol or drug abuse patient.[facility] HospitalIn the event this information is protected by the Federal Confidentiality of Alcohol and Drug Abuse Patient Records regulations: The Federal rules restrict any use of the information to criminally investigate or prosecute any alcohol or drug abuse patient.[facility] HospitalIn the event this information is protected by the Federal Confidentiality of Alcohol and Drug Abuse Patient Records regulations: The Federal rules restrict any use of the information to criminally investigate or prosecute any alcohol or drug abuse patient.[facility] HospitalIn the event this information is protected by the Federal Confidentiality of Alcohol and Drug Abuse Patient Records regulations: The Federal rules restrict any use of the information to criminally investigate or prosecute any alcohol or drug abuse patient.[facility] HospitalIn the event this information is protected by the Federal Confidentiality of Alcohol and Drug Abuse Patient Records regulations: The Federal rules restrict any use of the information to criminally investigate or prosecute any alcohol or drug abuse patient.[facility] HospitalIn the event this information is protected by the Federal Confidentiality of Alcohol and Drug Abuse Patient Records regulations: The Federal rules restrict any use of the information to criminally investigate or prosecute any alcohol or drug abuse patient.[facility] HospitalIn the event this information is protected by the Federal Confidentiality of Alcohol and Drug Abuse Patient Records regulations: The Federal rules restrict any use of the information to criminally investigate or prosecute any alcohol or drug abuse patient.[facility] HospitalIn the event this information is protected by the Federal Confidentiality of Alcohol and Drug Abuse Patient Records regulations: The Federal rules restrict any use of the information to criminally investigate or prosecute any alcohol or drug abuse patient.[facility] HospitalIn the event this information is protected by the Federal Confidentiality of Alcohol and Drug Abuse Patient Records regulations: The Federal rules restrict any use of the information to criminally investigate or prosecute any alcohol or drug abuse patient.[facility] HospitalIn the event this information is protected by the Federal Confidentiality of Alcohol and Drug Abuse Patient Records regulations: The Federal rules restrict any use of the information to criminally investigate or prosecute any alcohol or drug abuse patient.[facility] HospitalIn the event this information is protected by the Federal Confidentiality of Alcohol and Drug Abuse Patient Records regulations: The Federal rules restrict any use of the information to criminally investigate or prosecute any alcohol or drug abuse patient.[facility] HospitalIn the event this information is protected by the Federal Confidentiality of Alcohol and Drug Abuse Patient Records regulations: The Federal rules restrict any use of the information to criminally investigate or prosecute any alcohol or drug abuse patient.[facility] HospitalIn the event this information is protected by the Federal Confidentiality of Alcohol and Drug Abuse Patient Records regulations: The Federal rules restrict any use of the information to criminally investigate or prosecute any alcohol or drug abuse patient.[facility] HospitalIn the event this information is protected by the Federal Confidentiality of Alcohol and Drug Abuse Patient Records regulations: The Federal rules restrict any use of the information to criminally investigate or prosecute any alcohol or drug abuse patient.[facility] HospitalIn the event this information is protected by the Federal Confidentiality of Alcohol and Drug Abuse Patient Records regulations: The Federal rules restrict any use of the information to criminally investigate or prosecute any alcohol or drug abuse patient.[facility] HospitalIn the event this information is protected by the Federal Confidentiality of Alcohol and Drug Abuse Patient Records regulations: The Federal rules restrict any use of the information to criminally investigate or prosecute any alcohol or drug abuse patient.[facility] HospitalIn the event this information is protected by the Federal Confidentiality of Alcohol and Drug Abuse Patient Records regulations: The Federal rules restrict any use of the information to criminally investigate or prosecute any alcohol or drug abuse patient.[facility] HospitalIn the event this information is protected by the Federal Confidentiality of Alcohol and Drug Abuse Patient Records regulations: The Federal rules restrict any use of the information to criminally investigate or prosecute any alcohol or drug abuse patient.[facility] HospitalIn the event this information is protected by the Federal Confidentiality of Alcohol and Drug Abuse Patient Records regulations: The Federal rules restrict any use of the information to criminally investigate or prosecute any alcohol or drug abuse patient.[facility] HospitalIn the event this information is protected by the Federal Confidentiality of Alcohol and Drug Abuse Patient Records regulations: The Federal rules restrict any use of the information to criminally investigate or prosecute any alcohol or drug abuse patient.[facility] HospitalIn the event this information is protected by the Federal Confidentiality of Alcohol and Drug Abuse Patient Records regulations: The Federal rules restrict any use of the information to criminally investigate or prosecute any alcohol or drug abuse patient.[facility] HospitalIn the event this information is protected by the Federal Confidentiality of Alcohol and Drug Abuse Patient Records regulations: The Federal rules restrict any use of the information to criminally investigate or prosecute any alcohol or drug abuse patient.[facility] HospitalIn the event this information is protected by the Federal Confidentiality of Alcohol and Drug Abuse Patient Records regulations: The Federal rules restrict any use of the information to criminally investigate or prosecute any alcohol or drug abuse patient.[facility] HospitalIn the event this information is protected by the Federal Confidentiality of Alcohol and Drug Abuse Patient Records regulations: The Federal rules restrict any use of the information to criminally investigate or prosecute any alcohol or drug abuse patient.[facility] HospitalIn the event this information is protected by the Federal Confidentiality of Alcohol and Drug Abuse Patient Records regulations: The Federal rules restrict any use of the information to criminally investigate or prosecute any alcohol or drug abuse patient.[facility] HospitalIn the event this information is protected by the Federal Confidentiality of Alcohol and Drug Abuse Patient Records regulations: The Federal rules restrict any use of the information to criminally investigate or prosecute any alcohol or drug abuse patient.[facility] HospitalIn the event this information is protected by the Federal Confidentiality of Alcohol and Drug Abuse Patient Records regulations: The Federal rules restrict any use of the information to criminally investigate or prosecute any alcohol or drug abuse patient.[facility] HospitalIn the event this information is protected by the Federal Confidentiality of Alcohol and Drug Abuse Patient Records regulations: The Federal rules restrict any use of the information to criminally investigate or prosecute any alcohol or drug abuse patient.[facility] HospitalIn the event this information is protected by the Federal Confidentiality of Alcohol and Drug Abuse Patient Records regulations: The Federal rules restrict any use of the information to criminally investigate or prosecute any alcohol or drug abuse patient.[facility] HospitalIn the event this information is protected by the Federal Confidentiality of Alcohol and Drug Abuse Patient Records regulations: The Federal rules restrict any use of the information to criminally investigate or prosecute any alcohol or drug abuse patient.[facility] HospitalIn the event this information is protected by the Federal Confidentiality of Alcohol and Drug Abuse Patient Records regulations: The Federal rules restrict any use of the information to criminally investigate or prosecute any alcohol or drug abuse patient.[facility] HospitalIn the event this information is protected by the Federal Confidentiality of Alcohol and Drug Abuse Patient Records regulations: The Federal rules restrict any use of the information to criminally investigate or prosecute any alcohol or drug abuse patient.[facility] HospitalIn the event this information is protected by the Federal Confidentiality of Alcohol and Drug Abuse Patient Records regulations: The Federal rules restrict any use of the information to criminally investigate or prosecute any alcohol or drug abuse patient.[facility] HospitalIn the event this information is protected by the Federal Confidentiality of Alcohol and Drug Abuse Patient Records regulations: The Federal rules restrict any use of the information to criminally investigate or prosecute any alcohol or drug abuse patient.[facility] HospitalIn the event this information is protected by the Federal Confidentiality of Alcohol and Drug Abuse Patient Records regulations: The Federal rules restrict any use of the information to criminally investigate or prosecute any alcohol or drug abuse patient.[facility] HospitalIn the event this information is protected by the Federal Confidentiality of Alcohol and Drug Abuse Patient Records regulations: The Federal rules restrict any use of the information to criminally investigate or prosecute any alcohol or drug abuse patient.[facility] HospitalIn the event this information is protected by the Federal Confidentiality of Alcohol and Drug Abuse Patient Records regulations: The Federal rules restrict any use of the information to criminally investigate or prosecute any alcohol or drug abuse patient.[facility] HospitalIn the event this information is protected by the Federal Confidentiality of Alcohol and Drug Abuse Patient Records regulations: The Federal rules restrict any use of the information to criminally investigate or prosecute any alcohol or drug abuse patient.[facility] Reason for Visit (unrecogniz ed section [...] incontinence Procedures CONSULT TO URO GYNECOLOGY OFFICE/OUTPATIENT [facility] 60-74 MINUTES Mona Hebert MD [address] [place] [address] Referral ID Status Reason Start Date Expiration Date V isits Requested Visits Authorized [id number] Closed PCP Requested Referral Auto-Generated Referral 08/30/2021 11/28/2021 1 1 Reason Comments Anticoagulation Telephone Fu home INR Reason Comments Consult Specialty Diagnoses / Procedures Referred By Contac t Referred To Contact Infectious Diseases Diagnoses Recurrent UTI History of ESBL E. coli infection Procedures CONSULT TO INFECTIOUS DISEASES OFFICE/OUTPATIENT [facility] 60-74 MINUTES Basilia Hernández MD [phone] [address] Referral ID Status Reason Start Date Expiration Date V isits Requested Visits Authorized [id number] Closed PCP Requested Referral 09/26/2021 09/26/2022 1 1 Reason Onset Date Comments Anticoagulation Telephone Fu 10/15/2021 Agustín e INR Result Reason Comments High INR/lab order Reason Comments Release Of Medical Records Reason Comments Patient Question Reason Comments PAC TRANSFER OF CARE Reason Comments Blood Draw (CVAD) Reason Onset Date Comments 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 Reason Comments Follow Up [facility] concernsDaughter, Eloisa, concerned about Lasix managementRequires written prescriptions Reason Comments Last Office Visit Note Reason Comments Pain Care Teams (unrecognized sec tion and content) Compensation Supervisor Relationship Specialty Start Date End Date Ariel Sainz MD [address] [place], [place] [address] PCP - General Internal Medicine 01/15/16 13, Pharmacist [id number] [place], [place] [id number] Pharmacist Pharmacy 08/22/20 Compensation Supervisor Relationship Specialty Start Date End Date Ariel Sainz MD [address] [place], [place] [address] PCP - General Internal Medicine 01/15/16 13, Pharmacist [phone] [place] [address] Pharmacist Pharmacy 08/22/20 Compensation Supervisor Relationship Specialty Start Date End Date Ariel Sainz MD [address] [facility] [place] [address] PCP - General Internal Medicine 01/15/16 13, Pharmacist [phone] [facility] [place] [address] Pharmacist Pharmacy 08/22/20 Compensation Supervisor Relationship Specialty Start Date End Date Ariel Sainz MD [address] [facility] [place] [address] PCP - General Internal Medicine 01/15/16 13, Pharmacist [id number] [facility] [address] Pharmacist Pharmacy 08/22/20 Compensation Supervisor Relationship Specialty Start Date End Date Ariel Sainz MD [address] [facility] [place] [address] PCP - General Internal Medicine 01/15/16 13, Pharmacist [id number] [facility] [address] Pharmacist Pharmacy 08/22/20 Compensation Supervisor Relationship Specialty Start Date End Date Ariel Sainz MD [address] [facility] [place] [address] PCP - General Internal Medicine 01/15/16 13, Pharmacist [phone] [facility] [address] Pharmacist Pharmacy 08/22/20 Compensation Supervisor Relationship Specialty Start Date End Date Ariel Sainz MD [address] [facility] [place] [address] PCP - General Internal Medicine 01/15/16 13, Pharmacist [phone] [place] [address] Pharmacist Pharmacy 08/22/20 Compensation Supervisor Relationship Specialty Start Date End Date Ariel Sainz MD [address] [facility] [place] [address] PCP - General Internal Medicine 01/15/16 13, Pharmacist [phone] [place] [address] Pharmacist Pharmacy 08/22/20 Compensation Supervisor Relationship Specialty Start Date End Date Ariel Sainz MD [address] [facility] [place] [address] PCP - General Internal Medicine 01/15/16 13, Pharmacist [id number] [facility] [address] Pharmacist Pharmacy 08/22/20 Compensation Supervisor Relationship Specialty Start Date End Date Ariel Sainz MD [address] [facility] [place] [address] PCP - General Internal Medicine 01/15/16 13, Pharmacist [phone] [facility] [address] Pharmacist Pharmacy 08/22/20 Compensation Supervisor Relationship Specialty Start Date End Date Ariel Sainz MD [address] [facility] [place] [address] PCP - General Internal Medicine 01/15/16 13, Pharmacist [phone] [facility] [address] Pharmacist Pharmacy 08/22/20 Compensation Supervisor Relationship Specialty Start Date End Date Ariel Sainz MD [address] [place] [address] PCP - General Internal Medicine 01/15/16 13, Pharmacist [phone] [facility] [address] Pharmacist Pharmacy 08/22/20 Compensation Supervisor Relationship Specialty Start Date End Date Ariel Sainz MD [address] [facility] [place] [address] PCP - General Internal Medicine 01/15/16 13, Pharmacist [phone] [facility] [address] Pharmacist Pharmacy 08/22/20 Compensation Supervisor Relationship Specialty Start Date End Date Ariel Sainz MD [address] [facility] [place] [address] PCP - General Internal Medicine 01/15/16 13, Pharmacist [phone] [place] [address], [place] [address] Pharmacist Pharmacy 08/22/20 Compensation Supervisor Relationship Specialty Start Date End Date Ariel Sainz MD [address] [facility] [place] [address] PCP - General Internal Medicine 01/15/16 13, Pharmacist [phone] [place] [address], [place] [address] Pharmacist Pharmacy 08/22/20 Compensation Supervisor Relationship Specialty Start Date End Date Airel Sainz MD [address] [facility] [place] [address] PCP - General Internal Medicine 01/15/16 13, Pharmacist [phone] [place] [address], [place] [address] Pharmacist Pharmacy 08/22/20 Compensation Supervisor Relationship Specialty Start Date End Date Ariel Sainz MD [address] [place] [address] PCP - General Internal Medicine 01/15/16 13, Pharmacist [phone] [place] [address], [place] [address] Pharmacist Pharmacy 08/22/20 Compensation Supervisor Relationship Specialty Start Date End Date Ariel Sainz MD [address] [place] [address] PCP - General Internal Medicine 01/15/16 13, Pharmacist [phone] [facility] [address] Pharmacist Pharmacy 08/22/20 Compensation Supervisor Relationship Specialty Start Date End Date Ariel Sainz MD [address] [facility] [address] PCP - General Internal Medicine 01/15/16 13, Pharmacist [phone] [facility] [address] Pharmacist Pharmacy 08/22/20 Compensation Supervisor Relationship Specialty Start Date End Date Ariel Sainz MD [address] [facility] [place] [address] PCP - General Internal Medicine 01/15/16 13, Pharmacist [phone] [facility] [address] Pharmacist Pharmacy 08/22/20 Compensation Supervisor Relationship Specialty Start Date End Date Ariel Sainz MD [address] [facility] [place] [address] PCP - General Internal Medicine 01/15/16 13, Pharmacist [phone] [facility] [address] Pharmacist Pharmacy 08/22/20 Compensation Supervisor Relationship Specialty Start Date End Date Ariel Sainz MD [address] [facility] [place] [address] PCP - General Internal Medicine 01/15/16 13, Pharmacist [id number] [facility] [place] [address] Pharmacist Pharmacy 08/22/20 Compensation Supervisor Relationship Specialty Start Date End Date Ariel Sainz MD [address] [facility] [place] [address] PCP - General Internal Medicine 01/15/16 13, Pharmacist [id number] [facility] [place] [address] Pharmacist Pharmacy 08/22/20 Compensation Supervisor Relationship Specialty Start Date End Date Ariel Sainz MD [address] [facility] [place] [address] PCP - General Internal Medicine 01/15/16 13, Pharmacist [id number] [facility] [address] Pharmacist Pharmacy 08/22/20 Compensation Supervisor Relationship Specialty Start Date End Date Ariel Sainz MD [address] [facility] [place] [address] PCP - General Internal Medicine 01/15/16 13, Pharmacist [id number] [place] [address] Pharmacist Pharmacy 08/22/20 Compensation Supervisor Relationship Specialty Start Date End Date Ariel Sainz MD [address] [facility] [place] [address] PCP - General Internal Medicine 01/15/16 13, Pharmacist [id number] [facility] [address] Pharmacist Pharmacy 08/22/20 Compensation Supervisor Relationship Specialty Start Date End Date Ariel Sainz MD [address] [facility] [place] [address] PCP - General Internal Medicine 01/15/16 13, Pharmacist [id number] [facility] [place] [address] Pharmacist Pharmacy 08/22/20 Compensation Supervisor Relationship Specialty Start Date End Date Ariel Sainz MD [address] [facility] [place] [address] PCP - General Internal Medicine 01/15/16 13, Pharmacist [id number] [facility] [place] [address] Pharmacist Pharmacy 08/22/20 Compensation Supervisor Relationship Specialty Start Date End Date Ariel Sainz MD [address] [facility] [place] [address] PCP - General Internal Medicine 01/15/16 Compensation Supervisor Relationship Specialty Start Date End Date Ariel Sainz MD [address] [facility] [place] [address] PCP - General Internal Medicine 01/15/16 Compensation Supervisor Relationship Specialty Start Date End Date Ariel Sainz MD [address] [facility] [place] [address] PCP - General Internal Medicine 01/15/16 Compensation Supervisor Relationship Specialty Start Date End Date Ariel Sainz MD [address] [facility] [place] [address] PCP - General Internal Medicine 01/15/16 Compensation Supervisor Relationship Specialty Start Date End Date Ariel Sainz MD [address] [facility] [place] [address] PCP - General Internal Medicine 01/15/16 Compensation Supervisor Relationship Specialty Start Date End Date Ariel Sainz MD [address] [facility] [place] [address] PCP - General Internal Medicine 01/15/16 Compensation Supervisor Relationship Specialty Start Date End Date Ariel Sainz MD [address] [facility] [place] [address] PCP - General Internal Medicine 01/15/16 Compensation Supervisor Relationship Specialty Start Date End Date Ariel Sainz MD [address] [facility] [place] [address] PCP - General Internal Medicine 01/15/16 Compensation Supervisor Relationship Specialty Start Date End Date Ariel Sainz MD [address] [facility] [place] [address] PCP - General Internal Medicine 01/15/16 Compensation Supervisor Relationship Specialty Start Date End Date Ariel Sainz MD [address] [place] [address] PCP - General Internal Medicine 01/15/16 Sal Bonilla, DO [address] [facility] [address] Hematology/Oncology 03/22/22 Compensation Supervisor Relationship Specialty Start Date End Date Ariel Sainz MD [address] [place] [address] PCP - General Internal Medicine 01/15/16 Sal Bonilla, DO [address] [facility] [place] [address] Hematology/Oncology 03/22/22 Compensation Supervisor Relationship Specialty Start Date End Date Ariel Sainz MD [address] [place] [address] PCP - General Internal Medicine 01/15/16 Sal Bonilla, DO [address] [place] [address] Hematology/Oncology 03/22/22 Compensation Supervisor Relationship Specialty Start Date End Date Ariel Sainz MD [address] [place] [address] PCP - General Internal Medicine 01/15/16 Sal Bonilla, DO [address] [place] [address] Hematology/Oncology 03/22/22 Compensation Supervisor Relationship Specialty Start Date End Date Ariel Sainz MD [address] [place] [address] PCP - General Internal Medicine 01/15/16 Sal Bonilla, DO [address] [place] [address] Hematology/Oncology 03/22/22 Compensation Supervisor Relationship Specialty Start Date End Date Ariel Sainz MD [address] [place] [address] PCP - General Internal Medicine 01/15/16 Sal Bonilla, DO [address] [place] [address] Hematology/Oncology 03/22/22 Compensation Supervisor Relationship Specialty Start Date End Date Ariel Sainz MD [address] [place] [address] PCP - General Internal Medicine 01/15/16 Sal Bonilla, DO [address] [place] [address] Hematology/Oncology 03/22/22 Compensation Supervisor Relationship Specialty Start Date End Date Ariel Sainz MD [address] [place] [address] PCP - General Internal Medicine 01/15/16 Sal Bonilla, DO [address] [place] [address] Hematology/Oncology 03/22/22 Compensation Supervisor Relationship Specialty Start Date End Date Ariel Sainz MD [address] [place] [address] PCP - General Internal Medicine 01/15/16 Sal Bonilla, DO [address] [place] [address] Hematology/Oncology 03/22/22 Compensation Supervisor Relationship Specialty Start Date End Date Ariel Sainz MD [address] [place] [address] PCP - General Internal Medicine 01/15/16 Sal Bonilla, DO [address] [place] [address] Hematology/Oncology 03/22/22 Compensation Supervisor Relationship Specialty Start Date End Date Ariel Sainz MD [address] [place] [address] PCP - General Internal Medicine 01/15/16 Sal Bonilla, DO [address] [place] [address] Hematology/Oncology 03/22/22 Compensation Supervisor Relationship Specialty Start Date End Date Ariel Sainz MD [address] [place] [address] PCP - General Internal Medicine 01/15/16 Sal Bonilla DO [address] [place] [address] Hematology/Oncology 03/22/22 Compensation Supervisor Relationship Specialty Start Date End Date Ariel Sainz MD [address] [place] [address] PCP - General Internal Medicine 01/15/16 Sal Bonilla DO [address] [place] [address] Hematology/Oncology 03/22/22 Compensation Supervisor Relationship Specialty Start Date End Date Ariel Sainz MD [address] [place] [address] PCP - General Internal Medicine 01/15/16 Sal Bonilla DO [address] [place] [address] Hematology/Oncology 03/22/22 Compensation Supervisor Relationship Specialty Start Date End Date Ariel Sainz MD [address] [place] [address] PCP - General Internal Medicine 01/15/16 Sal Bonilla DO [address] [place] [address] Hematology/Oncology 03/22/22 Compensation Supervisor Relationship Specialty Start Date End Date Ariel Sainz MD [address] [place] [address] PCP - General Internal Medicine 01/15/16 Sal Bonilla DO [address] [place] [address] Hematology/Oncology 03/22/22 Compensation Supervisor Relationship Specialty Start Date End Date Ariel Sainz MD [address] [facility] [place] [address] PCP - General Internal Medicine 01/15/16 Sal Bonilla DO [address] [place] [address] Hematology/Oncology 03/22/22 Compensation Supervisor Relationship Specialty Start Date End Date Ariel Sainz MD [address] [facility] [place] [address] PCP - General Internal Medicine 01/15/16 Sal Bonilla DO [address] [place] [address] Hematology/Oncology 03/22/22 Compensation Supervisor Relationship Specialty Start Date End Date Ariel Sainz MD [address] [facility] [place] [address] PCP - General Internal Medicine 01/15/16 Sal Bonilla DO [address] [place] [address] Hematology/Oncology 03/22/22 Compensation Supervisor Relationship Specialty Start Date End Date Payam Reyna MD [address] [facility] [place] [address] PCP - General Internal Medicine 02/24/23 Sal Bonilla DO [address] [place] [address] Hematology/Oncology 03/22/22 Compensation Supervisor Relationship Specialty Start Date End Date Payam Reyna MD [address] [place], [place] [id number] PCP - General Internal Medicine 02/24/23 Sal Bonilla DO [address] [place], [place] [id number] Hematology/Oncology 03/22/22 FOR RECORDS PERTAINING TO PATIENTS [...] BE BASED ON THE PRIMARY CLINICAL RECORDS. [employer] provides no warranty or guarantee of the accuracy or completeness of information in this document.
[2023-05-05 08:09] LABS: Absolute Lymphocyte Count 1.25 X10^3/uL (0.83-4.51); Absolute Neutrophil Count 4.8 X10^3/uL (2.0-7.7); Basophil# 0.04 X10^3/uL; Basophil% 0.6 % (0-1); Eosinophil# 0.11 X10^3/uL; Eosinophils% 1.6 % (0-5); Hematocrit 35.7 % (37-47); Hemoglobin 11.6 g/dL (12.0-15.0); Lymphocyte # 1.25 X10^3/ul (0.83-4.51); Lymphocyte % 17.8 % (19-41); Mean Corp Hgb Conc 32.5 g/dL (32-36); Mean Corpuscular Hgb 33.2 pg (27.0-32.0); Mean Corpuscular Volume 102.3 fL (81-99); Mean Platelet Vol. 9.4 fl (6.2-12.0); Monocyte# 0.78 X10^3/uL; Monocyte% 11.1 % (0-10); NRBC Flagged by Analyzer 0 % (0-5); Neutrophil % 68.5 % (47-70); Platelet Count 144 K/mm3 (150-450); RBC Distribution Width SD 51.9 fl (35.1-43.9); Red Blood Count 3.49 M/mm3 (4.2-5.4)
[2023-05-05 08:30] LABS: ALB/GLOB Ratio 0.6 RATIO (0.9-2.4); AST(SGOT) 16 U/L (15-37); Alanine Aminotransfer ALT/SGPT 24 U/L (13-56); Albumin, Serum 2.4 g/dL (3.2-5.0); Alkaline Phosphatase 56 U/L (45-117); Anion Gap 4 (5-15); BUN 11 mg/dL (7-18); Chloride 112 mmol/L (98-107); Creatinine, Serum 0.69 mg/dL (0.55-1.02); EST Glomerular Filtration Rate 86 mL/min (>60); Est Glom Filt Rate - Afr Amer 104 mL/min (>60); Globulin 4.3 g/dL (2.2-4.2); Glucose 76 mg/dL (74-106); Protein, Total 6.7 g/dL (6.4-8.2); Sodium Level 142 mmol/L (136-145); Thyroid Stim Hormone (TSH) 1.84 uIU/mL (0.358-3.74)
== END ==
LOC: OLS.WHLTSB 05:00
PROVIDERS: PCP Internal Medicine; Visit Provider Internal Medicine
DX: I49.9 Cardiac arrhythmia, unspecified (principal)
CPT/HCPCS: 36415; 80053; 84443; 85025

== ENCOUNTER → 2023-06-02 | Outpatient (REF) | payer MEDICARE, BC, SELFPAY ==
[2023-06-02 08:13] LABS: Absolute Lymphocyte Count 1.12 X10^3/uL (0.83-4.51); Absolute Neutrophil Count 4.3 X10^3/uL (2.0-7.7); Basophil# 0.03 X10^3/uL; Basophil% 0.5 % (0-1); Eosinophil# 0.09 X10^3/uL; Eosinophils% 1.5 % (0-5); Hematocrit 34.1 % (37-47); Hemoglobin 11.3 g/dL (12.0-15.0); Lymphocyte # 1.12 X10^3/ul (0.83-4.51); Lymphocyte % 18.1 % (19-41); Mean Corp Hgb Conc 33.1 g/dL (32-36); Mean Corpuscular Hgb 33.5 pg (27.0-32.0); Mean Corpuscular Volume 101.2 fL (81-99); Mean Platelet Vol. 9.4 fl (6.2-12.0); Monocyte# 0.59 X10^3/uL; Monocyte% 9.5 % (0-10); NRBC Flagged by Analyzer 0 % (0-5); Neutrophil # 4.34 X10^3/uL (2.7-7.7); Neutrophil % 69.9 % (47-70); Platelet Count 144 K/mm3 (150-450); RBC Distribution Width CV 14.1 % (11.6-14.6); RBC Distribution Width SD 52.1 fl (35.1-43.9); Red Blood Count 3.37 M/mm3 (4.2-5.4); White Blood Count 6.2 K/mm3 (4.4-11.0)
[2023-06-02 08:28] LABS: ALB/GLOB Ratio 0.5 RATIO (0.9-2.4); AST(SGOT) 26 U/L (15-37); Alanine Aminotransfer ALT/SGPT 25 U/L (13-56); Albumin, Serum 2.4 g/dL (3.2-5.0); Alkaline Phosphatase 67 U/L (45-117); Anion Gap 4 (5-15); BUN 13 mg/dL (7-18); BUN/Creat Ratio 21.1 RATIO (10-20); Calcium,Total 9.1 mg/dL (8.5-10.1); Chloride 110 mmol/L (98-107); Creatinine, Serum 0.62 mg/dL (0.55-1.02); EST Glomerular Filtration Rate 97 mL/min (>60); Est Glom Filt Rate - Afr Amer 118 mL/min (>60); Globulin 4.4 g/dL (2.2-4.2); Glucose 76 mg/dL (74-106); Potassium 4.1 mmol/L (3.5-5.1); Protein, Total 6.8 g/dL (6.4-8.2); Sodium Level 140 mmol/L (136-145)
== END ==
LOC: OLS.WHLTSB 05:00
PROVIDERS: PCP Internal Medicine; Visit Provider Internal Medicine
DX: I49.9 Cardiac arrhythmia, unspecified (principal)
CPT/HCPCS: 36415; 80053; 85025

== ENCOUNTER → 2023-06-30 | Outpatient (REF) | payer MEDICARE, BC, SELFPAY ==
[2023-06-30 08:53] LABS: Absolute Lymphocyte Count 1.25 X10^3/uL (0.83-4.51); Absolute Neutrophil Count 3.8 X10^3/uL (2.0-7.7); Basophil# 0.04 X10^3/uL; Basophil% 0.7 % (0-1); Eosinophil# 0.09 X10^3/uL; Eosinophils% 1.5 % (0-5); Hematocrit 34.2 % (37-47); Lymphocyte # 1.25 X10^3/ul (0.83-4.51); Lymphocyte % 21.3 % (19-41); Mean Corp Hgb Conc 32.2 g/dL (32-36); Mean Corpuscular Hgb 32.8 pg (27.0-32.0); Mean Corpuscular Volume 102.1 fL (81-99); Mean Platelet Vol. 9.7 fl (6.2-12.0); Monocyte% 11.9 % (0-10); NRBC Flagged by Analyzer 0 % (0-5); Neutrophil # 3.76 X10^3/uL (2.7-7.7); Neutrophil % 64.1 % (47-70); Platelet Count 131 K/mm3 (150-450); RBC Distribution Width SD 55.3 fl (35.1-43.9); Red Blood Count 3.35 M/mm3 (4.2-5.4); White Blood Count 5.9 K/mm3 (4.4-11.0)
[2023-06-30 09:10] LABS: ALB/GLOB Ratio 0.6 RATIO (0.9-2.4); AST(SGOT) 27 U/L (15-37); Alanine Aminotransfer ALT/SGPT 31 U/L (13-56); Albumin, Serum 2.4 g/dL (3.2-5.0); Alkaline Phosphatase 59 U/L (45-117); Anion Gap 5 (5-15); BUN 14 mg/dL (7-18); BUN/Creat Ratio 23.6 RATIO (10-20); Calcium,Total 8.5 mg/dL (8.5-10.1); Chloride 110 mmol/L (98-107); Creatinine, Serum 0.59 mg/dL (0.55-1.02); EST Glomerular Filtration Rate 102 mL/min (>60); Est Glom Filt Rate - Afr Amer 123 mL/min (>60); Glucose 74 mg/dL (74-106); Protein, Total 6.4 g/dL (6.4-8.2); Sodium Level 142 mmol/L (136-145)
== END ==
LOC: OLS.WHLTSB 05:00
PROVIDERS: PCP Internal Medicine; Visit Provider Internal Medicine
DX: I49.9 Cardiac arrhythmia, unspecified (principal)
CPT/HCPCS: 36415; 80053; 85025

== ENCOUNTER → 2023-08-04 | Outpatient (REF) | payer MEDICARE, BC, SELFPAY ==
[2023-08-04 09:20] LABS: Absolute Lymphocyte Count 1.23 X10^3/uL (0.83-4.51); Basophil# 0.05 X10^3/uL; Basophil% 0.8 % (0-1); Eosinophils% 1.6 % (0-5); Hematocrit 34.4 % (37-47); Hemoglobin 11.3 g/dL (12.0-15.0); Lymphocyte # 1.23 X10^3/ul (0.83-4.51); Mean Corp Hgb Conc 32.8 g/dL (32-36); Mean Corpuscular Hgb 33.3 pg (27.0-32.0); Mean Corpuscular Volume 101.5 fL (81-99); Mean Platelet Vol. 9.7 fl (6.2-12.0); Monocyte# 0.81 X10^3/uL; Monocyte% 13.1 % (0-10); NRBC Flagged by Analyzer 0 % (0-5); Neutrophil # 3.95 X10^3/uL (2.7-7.7); Neutrophil % 64.2 % (47-70); Platelet Count 144 K/mm3 (150-450); RBC Distribution Width CV 15.2 % (11.6-14.6); RBC Distribution Width SD 57.1 fl (35.1-43.9); Red Blood Count 3.39 M/mm3 (4.2-5.4); White Blood Count 6.2 K/mm3 (4.4-11.0)
[2023-08-04 09:34] LABS: ALB/GLOB Ratio 0.7 RATIO (0.9-2.4); AST(SGOT) 26 U/L (15-37); Alanine Aminotransfer ALT/SGPT 28 U/L (13-56); Albumin, Serum 2.6 g/dL (3.2-5.0); Alkaline Phosphatase 72 U/L (45-117); Anion Gap 4 (5-15); BUN 11 mg/dL (7-18); BUN/Creat Ratio 18.1 RATIO (10-20); Calcium,Total 9.1 mg/dL (8.5-10.1); Chloride 109 mmol/L (98-107); Creatinine, Serum 0.61 mg/dL (0.55-1.02); EST Glomerular Filtration Rate 99 mL/min (>60); Est Glom Filt Rate - Afr Amer 120 mL/min (>60); Globulin 3.6 g/dL (2.2-4.2); Glucose 76 mg/dL (74-106); Potassium 3.8 mmol/L (3.5-5.1); Protein, Total 6.2 g/dL (6.4-8.2); Sodium Level 140 mmol/L (136-145)
== END ==
LOC: OLS.WHLTSB 05:00
PROVIDERS: PCP Internal Medicine; Visit Provider Internal Medicine
DX: I49.9 Cardiac arrhythmia, unspecified (principal)
CPT/HCPCS: 36415; 80053; 85025

== ENCOUNTER → 2023-09-01 | Outpatient (REF) | payer MEDICARE, BC, SELFPAY ==
[2023-09-01 08:40] LABS: Basophil# 0.05 X10^3/uL; Basophil% 0.8 % (0-1); Eosinophil# 0.12 X10^3/uL; Eosinophils% 1.9 % (0-5); Hematocrit 33.1 % (37-47); Hemoglobin 10.7 g/dL (12.0-15.0); Lymphocyte % 20.7 % (19-41); Mean Corp Hgb Conc 32.3 g/dL (32-36); Mean Corpuscular Volume 99.1 fL (81-99); Mean Platelet Vol. 9.8 fl (6.2-12.0); Monocyte# 0.78 X10^3/uL; Monocyte% 12.4 % (0-10); NRBC Flagged by Analyzer 0 % (0-5); Neutrophil # 4.01 X10^3/uL (2.7-7.7); Neutrophil % 63.9 % (47-70); Platelet Count 173 K/mm3 (150-450); RBC Distribution Width CV 13.9 % (11.6-14.6); RBC Distribution Width SD 50.8 fl (35.1-43.9); Red Blood Count 3.34 M/mm3 (4.2-5.4); White Blood Count 6.3 K/mm3 (4.4-11.0)
[2023-09-01 09:22] LABS: ALB/GLOB Ratio 0.6 RATIO (0.9-2.4); AST(SGOT) 35 U/L (15-37); Alanine Aminotransfer ALT/SGPT 30 U/L (13-56); Albumin, Serum 2.6 g/dL (3.2-5.0); Alkaline Phosphatase 88 U/L (45-117); Anion Gap 9 (5-15); BUN 15 mg/dL (7-18); BUN/Creat Ratio 27.5 RATIO (10-20); Calcium,Total 9.2 mg/dL (8.5-10.1); Chloride 104 mmol/L (98-107); Creatinine, Serum 0.54 mg/dL (0.55-1.02); EST Glomerular Filtration Rate 112 mL/min (>60); Est Glom Filt Rate - Afr Amer 136 mL/min (>60); Globulin 4.2 g/dL (2.2-4.2); Glucose 83 mg/dL (74-106); Potassium 3.8 mmol/L (3.5-5.1); Protein, Total 6.8 g/dL (6.4-8.2); Sodium Level 137 mmol/L (136-145)
== END ==
LOC: OLS.WHLTSB 04:00
PROVIDERS: PCP Internal Medicine; Referring Provider Internal Medicine; Visit Provider Internal Medicine
DX: I49.9 Cardiac arrhythmia, unspecified (principal)
CPT/HCPCS: 36415; 80053; 85025

== ENCOUNTER → 2023-09-29 | Outpatient (REF) | payer MEDICARE, BC, SELFPAY ==
[2023-09-29 08:18] LABS: Absolute Lymphocyte Count 1.34 X10^3/uL (0.83-4.51); Absolute Neutrophil Count 2.9 X10^3/uL (2.0-7.7); Basophil# 0.04 X10^3/uL; Basophil% 0.8 % (0-1); Eosinophil# 0.13 X10^3/uL; Eosinophils% 2.6 % (0-5); Hemoglobin 10.7 g/dL (12.0-15.0); Lymphocyte # 1.34 X10^3/ul (0.83-4.51); Lymphocyte % 26.6 % (19-41); Mean Corp Hgb Conc 32.4 g/dL (32-36); Mean Corpuscular Hgb 32.8 pg (27.0-32.0); Mean Corpuscular Volume 101.2 fL (81-99); Mean Platelet Vol. 10.1 fl (6.2-12.0); Monocyte# 0.63 X10^3/uL; Monocyte% 12.5 % (0-10); NRBC Flagged by Analyzer 0 % (0-5); Neutrophil # 2.86 X10^3/uL (2.7-7.7); Neutrophil % 56.9 % (47-70); Platelet Count 132 K/mm3 (150-450); RBC Distribution Width CV 14.3 % (11.6-14.6); RBC Distribution Width SD 53.2 fl (35.1-43.9); Red Blood Count 3.26 M/mm3 (4.2-5.4)
[2023-09-29 08:36] LABS: ALB/GLOB Ratio 0.6 RATIO (0.9-2.4); AST(SGOT) 32 U/L (15-37); Alanine Aminotransfer ALT/SGPT 29 U/L (13-56); Albumin, Serum 2.6 g/dL (3.2-5.0); Alkaline Phosphatase 76 U/L (45-117); Anion Gap 5 (5-15); BUN 16 mg/dL (7-18); BUN/Creat Ratio 24.3 RATIO (10-20); Chloride 108 mmol/L (98-107); Creatinine, Serum 0.66 mg/dL (0.55-1.02); EST Glomerular Filtration Rate 90 mL/min (>60); Est Glom Filt Rate - Afr Amer 109 mL/min (>60); Globulin 4.3 g/dL (2.2-4.2); Glucose 78 mg/dL (74-106); Potassium 3.8 mmol/L (3.5-5.1); Protein, Total 6.9 g/dL (6.4-8.2); Sodium Level 139 mmol/L (136-145)
== END ==
LOC: OLS.WHLTSB 04:00
PROVIDERS: PCP Internal Medicine; Visit Provider Internal Medicine
DX: I49.9 Cardiac arrhythmia, unspecified (principal)
CPT/HCPCS: 36415; 80053; 85025

== ENCOUNTER → 2023-11-03 04:00 | Outpatient (REF) | payer MEDICARE, BC, SELFPAY ==
[2023-11-03 07:33] LABS: Absolute Lymphocyte Count 1.25 X10^3/uL (0.83-4.51); Absolute Neutrophil Count 2.5 X10^3/uL (2.0-7.7); Basophil# 0.03 X10^3/uL; Basophil% 0.7 % (0-1); Eosinophils% 2.2 % (0-5); Hematocrit 30.8 % (37-47); Hemoglobin 9.9 g/dL (12.0-15.0); Lymphocyte # 1.25 X10^3/ul (0.83-4.51); Mean Corp Hgb Conc 32.1 g/dL (32-36); Mean Corpuscular Hgb 32.8 pg (27.0-32.0); Mean Platelet Vol. 10.3 fl (6.2-12.0); Monocyte# 0.54 X10^3/uL; Monocyte% 12.1 % (0-10); NRBC Flagged by Analyzer 0 % (0-5); Neutrophil # 2.53 X10^3/uL (2.7-7.7); Neutrophil % 56.8 % (47-70); Platelet Count 132 K/mm3 (150-450); RBC Distribution Width CV 15.3 % (11.6-14.6); RBC Distribution Width SD 57.1 fl (35.1-43.9); Red Blood Count 3.02 M/mm3 (4.2-5.4); White Blood Count 4.5 K/mm3 (4.4-11.0)
[2023-11-03 08:30] LABS: ALB/GLOB Ratio 0.5 RATIO (0.9-2.4); AST(SGOT) 28 U/L (15-37); Alanine Aminotransfer ALT/SGPT 26 U/L (13-56); Albumin, Serum 2.4 g/dL (3.2-5.0); Alkaline Phosphatase 75 U/L (45-117); Anion Gap 5 (5-15); BUN 16 mg/dL (7-18); Calcium,Total 8.8 mg/dL (8.5-10.1); Chloride 112 mmol/L (98-107); Creatinine, Serum 0.64 mg/dL (0.55-1.02); EST Glomerular Filtration Rate 93 mL/min (>60); Est Glom Filt Rate - Afr Amer 113 mL/min (>60); Globulin 4.8 g/dL (2.2-4.2); Glucose 79 mg/dL (74-106); Protein, Total 7.2 g/dL (6.4-8.2); Sodium Level 141 mmol/L (136-145)
== END ==
LOC: OLS.WHLTSB 04:00
PROVIDERS: PCP Internal Medicine; Visit Provider Internal Medicine
DX: I49.9 Cardiac arrhythmia, unspecified (principal); E03.9 Hypothyroidism, unspecified
CPT/HCPCS: 36415; 80053; 84443; 85025

== ENCOUNTER → 2023-11-27 05:00 | Outpatient (REF) | payer MEDICARE, BC, SELFPAY ==
[2023-11-27 06:59] LABS: Platelet Count 152 K/mm3 (150-450); RET-HE 34.4 pg (30-35)
[2023-11-27 08:22] LABS: Vitamin B12 343 pg/mL (211-911)
[2023-12-02 06:09] LABS: Copper, Serum or Plasma 76 ug/dL (80-158)
[2023-12-03 15:08] LABS: Methylmalonic Acid Bld 232 nmol/L (0-378)
== END ==
LOC: OLS.WHLTSB 05:00
PROVIDERS: PCP Internal Medicine; Visit Provider Internal Medicine
DX: D64.9 Anemia, unspecified (principal); I25.10 Atherosclerotic heart disease of native coronary artery without angina pectoris; H25.13 Age-related nuclear cataract, bilateral; H04.123 Dry eye syndrome of bilateral lacrimal glands; M62.561 Muscle wasting and atrophy, not elsewhere classified, right lower leg
CPT/HCPCS: 36415; 82525; 82607; 82746; 83921; 84443; 85045

== ENCOUNTER → 2023-12-01 05:00 | Outpatient (REF) | payer MEDICARE, BC, SELFPAY ==
[2023-12-01 09:08] LABS: Absolute Lymphocyte Count 1.19 X10^3/uL (0.83-4.51); Absolute Neutrophil Count 2.8 X10^3/uL (2.0-7.7); Basophil# 0.04 X10^3/uL; Basophil% 0.8 % (0-1); Eosinophil# 0.09 X10^3/uL; Eosinophils% 1.9 % (0-5); Hemoglobin 8.9 g/dL (12.0-15.0); Lymphocyte # 1.19 X10^3/ul (0.83-4.51); Lymphocyte % 24.9 % (19-41); Mean Corp Hgb Conc 31.8 g/dL (32-36); Mean Corpuscular Hgb 32.8 pg (27.0-32.0); Mean Corpuscular Volume 103.3 fL (81-99); Monocyte# 0.61 X10^3/uL; Monocyte% 12.8 % (0-10); NRBC Flagged by Analyzer 0 % (0-5); Neutrophil # 2.84 X10^3/uL (2.7-7.7); Neutrophil % 59.4 % (47-70); Platelet Count 157 K/mm3 (150-450); RBC Distribution Width CV 14.6 % (11.6-14.6); RBC Distribution Width SD 54.6 fl (35.1-43.9); Red Blood Count 2.71 M/mm3 (4.2-5.4); White Blood Count 4.8 K/mm3 (4.4-11.0)
[2023-12-01 09:25] LABS: ALB/GLOB Ratio 0.5 RATIO (0.9-2.4); AST(SGOT) 34 U/L (15-37); Alanine Aminotransfer ALT/SGPT 24 U/L (13-56); Albumin, Serum 2.4 g/dL (3.2-5.0); Alkaline Phosphatase 69 U/L (45-117); Anion Gap 8 (5-15); BUN 17 mg/dL (7-18); BUN/Creat Ratio 25.6 RATIO (10-20); Calcium,Total 8.8 mg/dL (8.5-10.1); Chloride 111 mmol/L (98-107); Creatinine, Serum 0.66 mg/dL (0.55-1.02); EST Glomerular Filtration Rate 89 mL/min (>60); Est Glom Filt Rate - Afr Amer 108 mL/min (>60); Globulin 4.9 g/dL (2.2-4.2); Glucose 75 mg/dL (74-106); Potassium 3.8 mmol/L (3.5-5.1); Protein, Total 7.3 g/dL (6.4-8.2); Sodium Level 142 mmol/L (136-145)
== END ==
LOC: OLS.WHLTSB 05:00
PROVIDERS: PCP Internal Medicine; Visit Provider Internal Medicine
DX: I49.9 Cardiac arrhythmia, unspecified (principal)
CPT/HCPCS: 36415; 80053; 85025

== ENCOUNTER → 2023-12-02 05:00 | Outpatient (REF) | payer MEDICARE, BC, SELFPAY ==
[2023-12-07 11:06] LABS: Methylmalonic Acid Bld 190 nmol/L (0-378)
== END ==
LOC: OLS.WHLTSB 05:00
PROVIDERS: PCP Internal Medicine; Visit Provider Internal Medicine
DX: R53.82 Chronic fatigue, unspecified (principal)
CPT/HCPCS: 36415; 83921

== ENCOUNTER → 2023-12-29 05:00 | Outpatient (REF) | payer MEDICARE, BC, SELFPAY | LOC: OLS.WHLTSB 05:00 | PROVIDERS: PCP Internal Medicine; Visit Provider Internal Medicine | DX: E55.9 Vitamin D deficiency, unspecified (principal) | CPT/HCPCS: 36415; 82306 ==

== ENCOUNTER → 2024-01-05 05:00 | Outpatient (REF) | payer MEDICARE, BC, SELFPAY ==
[2024-01-05 09:54] LABS: Absolute Lymphocyte Count 1.41 X10^3/uL (0.83-4.51); Absolute Neutrophil Count 2.9 X10^3/uL (2.0-7.7); Basophil# 0.04 X10^3/uL; Basophil% 0.8 % (0-1); Eosinophil# 0.09 X10^3/uL; Eosinophils% 1.8 % (0-5); Hematocrit 26.1 % (37-47); Hemoglobin 8.2 g/dL (12.0-15.0); Lymphocyte # 1.41 X10^3/ul (0.83-4.51); Lymphocyte % 28.1 % (19-41); Mean Corp Hgb Conc 31.4 g/dL (32-36); Mean Corpuscular Hgb 31.7 pg (27.0-32.0); Mean Corpuscular Volume 100.8 fL (81-99); Mean Platelet Vol. 9.8 fl (6.2-12.0); NRBC Flagged by Analyzer 0 % (0-5); Neutrophil # 2.85 X10^3/uL (2.7-7.7); Neutrophil % 56.7 % (47-70); Platelet Count 168 K/mm3 (150-450); RBC Distribution Width CV 13.7 % (11.6-14.6); RBC Distribution Width SD 50.3 fl (35.1-43.9); Red Blood Count 2.59 M/mm3 (4.2-5.4)
[2024-01-05 10:43] LABS: ALB/GLOB Ratio 0.5 RATIO (0.9-2.4); AST(SGOT) 29 U/L (15-37); Alanine Aminotransfer ALT/SGPT 24 U/L (13-56); Albumin, Serum 2.5 g/dL (3.2-5.0); Alkaline Phosphatase 61 U/L (45-117); Anion Gap 4 (5-15); BUN 17 mg/dL (7-18); Chloride 111 mmol/L (98-107); Creatinine, Serum 0.71 mg/dL (0.55-1.02); EST Glomerular Filtration Rate 83 mL/min (>60); Est Glom Filt Rate - Afr Amer 100 mL/min (>60); Globulin 5.1 g/dL (2.2-4.2); Glucose 84 mg/dL (74-106); Potassium 4.2 mmol/L (3.5-5.1); Protein, Total 7.6 g/dL (6.4-8.2); Sodium Level 140 mmol/L (136-145)
== END ==
LOC: OLS.WHLTSB 05:00
PROVIDERS: PCP Internal Medicine; Visit Provider Internal Medicine
DX: I49.9 Cardiac arrhythmia, unspecified (principal)
CPT/HCPCS: 36415; 80053; 85025

== ENCOUNTER → 2024-01-14 | Outpatient (REF) | payer MEDICARE, BC, SELFPAY ==
[2024-01-20 22:06] LABS: Copper, Serum or Plasma 91 ug/dL (80-158)
== END ==
LOC: OLS.WHLTSB 05:00
PROVIDERS: PCP Internal Medicine; Visit Provider Internal Medicine
DX: E61.0 Copper deficiency (principal)
CPT/HCPCS: 36415; 82525

== ENCOUNTER → 2024-02-02 | Outpatient (REF) | payer MEDICARE, BC, SELFPAY ==
[2024-02-02 06:54] LABS: Absolute Lymphocyte Count 1.17 X10^3/uL (0.83-4.51); Absolute Neutrophil Count 4.2 X10^3/uL (2.0-7.7); Basophil# 0.03 X10^3/uL; Basophil% 0.5 % (0-1); Eosinophil# 0.07 X10^3/uL; Eosinophils% 1.1 % (0-5); Hematocrit 26.5 % (37-47); Hemoglobin 7.7 g/dL (12.0-15.0); Lymphocyte # 1.17 X10^3/ul (0.83-4.51); Lymphocyte % 18.9 % (19-41); Mean Corp Hgb Conc 29.1 g/dL (32-36); Mean Corpuscular Hgb 28.3 pg (27.0-32.0); Mean Corpuscular Volume 97.4 fL (81-99); Mean Platelet Vol. 9.5 fl (6.2-12.0); Monocyte# 0.68 X10^3/uL; NRBC Flagged by Analyzer 0 % (0-5); Platelet Count 173 K/mm3 (150-450); RBC Distribution Width CV 14.3 % (11.6-14.6); RBC Distribution Width SD 50.3 fl (35.1-43.9); Red Blood Count 2.72 M/mm3 (4.2-5.4); White Blood Count 6.2 K/mm3 (4.4-11.0)
[2024-02-02 07:15] LABS: ALB/GLOB Ratio 0.5 RATIO (0.9-2.4); AST(SGOT) 20 U/L (15-37); Alanine Aminotransfer ALT/SGPT 24 U/L (13-56); Albumin, Serum 2.4 g/dL (3.2-5.0); Alkaline Phosphatase 46 U/L (45-117); Anion Gap 4 (5-15); BUN 16 mg/dL (7-18); BUN/Creat Ratio 21.4 RATIO (10-20); Calcium,Total 8.3 mg/dL (8.5-10.1); Chloride 111 mmol/L (98-107); Creatinine, Serum 0.75 mg/dL (0.55-1.02); EST Glomerular Filtration Rate 78 mL/min (>60); Est Glom Filt Rate - Afr Amer 94 mL/min (>60); Globulin 4.7 g/dL (2.2-4.2); Glucose 82 mg/dL (74-106); Potassium 3.8 mmol/L (3.5-5.1); Protein, Total 7.1 g/dL (6.4-8.2); Sodium Level 140 mmol/L (136-145)
== END ==
LOC: OLS.WHLTSB 05:00
PROVIDERS: PCP Internal Medicine; Visit Provider Internal Medicine
DX: I49.9 Cardiac arrhythmia, unspecified (principal)
CPT/HCPCS: 36415; 80053; 85025

== ENCOUNTER → 2024-03-01 05:00 | Outpatient (REF) | payer MEDICARE, BC, SELFPAY ==
[2024-03-01 08:14] LABS: Absolute Lymphocyte Count 1.02 X10^3/uL (0.83-4.51); Absolute Neutrophil Count 4.2 X10^3/uL (2.0-7.7); Basophil# 0.04 X10^3/uL; Basophil% 0.7 % (0-1); Eosinophil# 0.08 X10^3/uL; Eosinophils% 1.3 % (0-5); Hematocrit 28.3 % (37-47); Hemoglobin 8.3 g/dL (12.0-15.0); Lymphocyte # 1.02 X10^3/ul (0.83-4.51); Lymphocyte % 16.9 % (19-41); Mean Corp Hgb Conc 29.3 g/dL (32-36); Mean Corpuscular Hgb 29.2 pg (27.0-32.0); Mean Corpuscular Volume 99.6 fL (81-99); Mean Platelet Vol. 10.1 fl (6.2-12.0); Monocyte# 0.72 X10^3/uL; Monocyte% 11.9 % (0-10); NRBC Flagged by Analyzer 0.7 % (0-5); Neutrophil # 4.15 X10^3/uL (2.7-7.7); Neutrophil % 68.5 % (47-70); Platelet Count 217 K/mm3 (150-450); RBC Distribution Width CV 15.8 % (11.6-14.6); Red Blood Count 2.84 M/mm3 (4.2-5.4); White Blood Count 6.1 K/mm3 (4.4-11.0)
[2024-03-01 09:36] LABS: ALB/GLOB Ratio 0.4 RATIO (0.9-2.4); AST(SGOT) 34 U/L (15-37); Alanine Aminotransfer ALT/SGPT 19 U/L (13-56); Albumin, Serum 2.2 g/dL (3.2-5.0); Alkaline Phosphatase 63 U/L (45-117); Anion Gap 7 (5-15); BUN 14 mg/dL (7-18); BUN/Creat Ratio 20.9 RATIO (10-20); Calcium,Total 8.8 mg/dL (8.5-10.1); Chloride 108 mmol/L (98-107); Creatinine, Serum 0.67 mg/dL (0.55-1.02); EST Glomerular Filtration Rate 88 mL/min (>60); Est Glom Filt Rate - Afr Amer 107 mL/min (>60); Globulin 5.7 g/dL (2.2-4.2); Glucose 68 mg/dL (74-106); Protein, Total 7.9 g/dL (6.4-8.2); Sodium Level 137 mmol/L (136-145)
== END ==
LOC: OLS.WHLTSB 05:00
PROVIDERS: PCP Internal Medicine; Visit Provider Internal Medicine
DX: I49.9 Cardiac arrhythmia, unspecified (principal); E55.9 Vitamin D deficiency, unspecified; I25.10 Atherosclerotic heart disease of native coronary artery without angina pectoris; E61.0 Copper deficiency; R53.82 Chronic fatigue, unspecified
CPT/HCPCS: 36415; 80053; 85025

== ENCOUNTER → 2024-03-02 05:00 | Outpatient (REF) | payer MEDICARE, BC, SELFPAY ==
[2024-03-02 09:17] LABS: Vitamin D,25 Hydroxy 35.7 ng/mL
== END ==
LOC: OLS.WHLTSB 05:00
PROVIDERS: PCP Internal Medicine; Visit Provider Internal Medicine
DX: E55.9 Vitamin D deficiency, unspecified (principal)
CPT/HCPCS: 82306

== ENCOUNTER → 2024-04-05 | Outpatient (REF) | payer MEDICARE, BC, SELFPAY ==
[2024-04-05 10:04] LABS: Absolute Neutrophil Count 3.6 X10^3/uL (2.0-7.7); Basophil# 0.04 X10^3/uL; Basophil% 0.8 % (0-1); Eosinophil# 0.07 X10^3/uL; Eosinophils% 1.3 % (0-5); Hematocrit 26.8 % (37-47); Hemoglobin 8.9 g/dL (12.0-15.0); Lymphocyte % 17.3 % (19-41); Mean Corp Hgb Conc 33.2 g/dL (32-36); Mean Corpuscular Hgb 33.1 pg (27.0-32.0); Mean Corpuscular Volume 99.6 fL (81-99); Mean Platelet Vol. 9.9 fl (6.2-12.0); Monocyte# 0.54 X10^3/uL; Monocyte% 10.4 % (0-10); NRBC Flagged by Analyzer 0 % (0-5); Neutrophil # 3.62 X10^3/uL (2.7-7.7); Neutrophil % 69.6 % (47-70); POSITIVE MORPHOLOGY YES; Platelet Count 163 K/mm3 (150-450); RBC Distribution Width CV 18.7 % (11.6-14.6); RBC Distribution Width SD 67.1 fl (35.1-43.9); Red Blood Count 2.69 M/mm3 (4.2-5.4); White Blood Count 5.2 K/mm3 (4.4-11.0)
[2024-04-05 10:05] LABS: Differential Indicated SCAN CRITERIA MET
[2024-04-05 10:24] LABS: Anisocytosis 2+; Basophil 0.04 % (0-1); Blast 0.04 % (0-0); Differential Comment SCANNED; ERROR FUNCTION FLAG YES; ERROR RESULT FLAG YES; Eosinophil 0.04 % (0-5); Lymphocyte 0.04 % (19-41); Metamyelocyte 0.04 % (0-1); Monocyte 0.04 % (0-10); Myelocyte 0.04 % (0-0); Neutrophil-Band 0.04 % (0-5); Neutrophil-Segmented 0.04 % (47-70); Other WBC Type 0.04 %; Plasma Cell 0.04 %; Promyelocyte 0.04 % (0-0); Total Cells Counted 0.04 (MANUAL DIFF)
[2024-04-05 10:36] LABS: ALB/GLOB Ratio 0.5 RATIO (0.9-2.4); AST(SGOT) 33 U/L (15-37); Alanine Aminotransfer ALT/SGPT 28 U/L (13-56); Albumin, Serum 2.3 g/dL (3.2-5.0); Alkaline Phosphatase 64 U/L (45-117); Anion Gap 4 (5-15); BUN 16 mg/dL (7-18); BUN/Creat Ratio 23.3 RATIO (10-20); Calcium,Total 8.8 mg/dL (8.5-10.1); Chloride 108 mmol/L (98-107); Creatinine, Serum 0.69 mg/dL (0.55-1.02); EST Glomerular Filtration Rate 86 mL/min (>60); Est Glom Filt Rate - Afr Amer 104 mL/min (>60); Globulin 5.1 g/dL (2.2-4.2); Glucose 70 mg/dL (74-106); Protein, Total 7.4 g/dL (6.4-8.2); Sodium Level 139 mmol/L (136-145)
== END ==
LOC: OLS.WHLTSB 05:00
PROVIDERS: PCP Internal Medicine; Visit Provider Internal Medicine
DX: I49.9 Cardiac arrhythmia, unspecified (principal); I25.10 Atherosclerotic heart disease of native coronary artery without angina pectoris
CPT/HCPCS: 36415; 80053; 85025

== ENCOUNTER → 2024-04-23 | Outpatient (REF) | payer MEDICARE, BC, SELFPAY | LOC: OLS.WHLTSB 04:00 | PROVIDERS: PCP Internal Medicine; Referring Provider Internal Medicine; Visit Provider Internal Medicine | DX: E61.0 Copper deficiency (principal) | CPT/HCPCS: 36415; 82525 ==

== ENCOUNTER → 2024-05-03 05:00 | Outpatient (REF) | payer MEDICARE, BC, SELFPAY ==
[2024-05-03 08:27] LABS: Absolute Lymphocyte Count 1.13 X10^3/uL (0.83-4.51); Absolute Neutrophil Count 5.1 X10^3/uL (2.0-7.7); Basophil# 0.04 X10^3/uL; Basophil% 0.6 % (0-1); Eosinophil# 0.08 X10^3/uL; Eosinophils% 1.1 % (0-5); Hematocrit 29.8 % (37-47); Hemoglobin 9.1 g/dL (12.0-15.0); Lymphocyte # 1.13 X10^3/ul (0.83-4.51); Lymphocyte % 16.1 % (19-41); Mean Corp Hgb Conc 30.5 g/dL (32-36); Mean Corpuscular Hgb 30.2 pg (27.0-32.0); Mean Platelet Vol. 9.4 fl (6.2-12.0); Monocyte# 0.68 X10^3/uL; Monocyte% 9.7 % (0-10); NRBC Flagged by Analyzer 0 % (0-5); Neutrophil # 5.08 X10^3/uL (2.7-7.7); Neutrophil % 72.1 % (47-70); Platelet Count 163 K/mm3 (150-450); RBC Distribution Width CV 17.4 % (11.6-14.6); RBC Distribution Width SD 62.4 fl (35.1-43.9); Red Blood Count 3.01 M/mm3 (4.2-5.4)
[2024-05-03 09:03] LABS: ALB/GLOB Ratio 0.5 RATIO (0.9-2.4); AST(SGOT) 34 U/L (15-37); Alanine Aminotransfer ALT/SGPT 31 U/L (13-56); Albumin, Serum 2.3 g/dL (3.2-5.0); Alkaline Phosphatase 57 U/L (45-117); Anion Gap 7 (5-15); BUN 17 mg/dL (7-18); BUN/Creat Ratio 22.8 RATIO (10-20); Calcium,Total 8.9 mg/dL (8.5-10.1); Chloride 108 mmol/L (98-107); Creatinine, Serum 0.74 mg/dL (0.55-1.02); EST Glomerular Filtration Rate 78 mL/min (>60); Est Glom Filt Rate - Afr Amer 95 mL/min (>60); Globulin 4.8 g/dL (2.2-4.2); Glucose 69 mg/dL (74-106); Potassium 4.3 mmol/L (3.5-5.1); Protein, Total 7.1 g/dL (6.4-8.2); Sodium Level 141 mmol/L (136-145)
[2024-05-04 08:02] LABS: Color, Urine Yellow (Yellow); Glucose, Dipstick Normal (Normal); Ketone-Dipstick Negative (Negative); Leukocyte Esterase-Dipstick 500 /ul (Negative); Nitrite-Dipstick Negative (Negative); Occult Blood-Urine 50 /ul (Negative); Protein-Dipstick Negative (Negative); Urine Bilirubin Dipstick Negative (Negative); Urine Clarity Sl. Cloudy (Clear); Urine Urobilinogen Normal (Normal); Urine pH 6.5 (5.0 - 8.0)
== END ==
LOC: OLS.WHLTSB 05:00
PROVIDERS: PCP Internal Medicine; Visit Provider Internal Medicine
DX: I25.10 Atherosclerotic heart disease of native coronary artery without angina pectoris (principal); N39.0 Urinary tract infection, site not specified; R77.0 Abnormality of albumin; K20.90 Esophagitis, unspecified without bleeding
CPT/HCPCS: 36415; 80053; 81002; 84443; 85025; 87086; 87088; 87186

== ENCOUNTER → 2024-05-13 | Outpatient (REF) | payer MEDICARE, BC, SELFPAY ==
[2024-05-14 07:56] LABS: Mucous, Urine 0 SEEN /hpf (<or=2+)
[2024-05-14 09:10] LABS: Color, Urine Yellow (Yellow); Glucose, Dipstick Normal (Normal); Ketone-Dipstick Negative (Negative); Leukocyte Esterase-Dipstick 100 /ul (Negative); Nitrite-Dipstick Positive (Negative); Occult Blood-Urine 10 /ul (Negative); Protein-Dipstick Negative (Negative); Urine Bilirubin Dipstick Negative (Negative); Urine Clarity Clear (Clear); Urine Urobilinogen Normal (Normal); Urine pH 6.5 (5.0 - 8.0)
[2024-05-14 09:20] LABS: Red Blood Cells-Urine 0-5 SEEN /hpf (0-5); White Blood Cells 0-5 SEEN /hpf (0-5)
[2024-05-14 09:21] LABS: Bacteria RARE /hpf (None Seen); Squamous Epithelial Cells - UA 0-5 SEEN /hpf (5-10)
== END ==
LOC: OLS.WHLTSB 21:45
PROVIDERS: PCP Internal Medicine; Visit Provider Internal Medicine
DX: N39.0 Urinary tract infection, site not specified (principal)
CPT/HCPCS: 81001; 87077; 87086; 87088; 87186

== ENCOUNTER → 2024-05-31 | Outpatient (REF) | payer MEDICARE, BC, SELFPAY ==
[2024-05-31 08:04] LABS: Absolute Lymphocyte Count 1.03 X10^3/uL (0.83-4.51); Absolute Neutrophil Count 3.8 X10^3/uL (2.0-7.7); Basophil# 0.03 X10^3/uL; Basophil% 0.5 % (0-1); Eosinophil# 0.07 X10^3/uL; Eosinophils% 1.3 % (0-5); Hematocrit 30.7 % (37-47); Hemoglobin 9.7 g/dL (12.0-15.0); Lymphocyte # 1.03 X10^3/ul (0.83-4.51); Lymphocyte % 18.6 % (19-41); Mean Corp Hgb Conc 31.6 g/dL (32-36); Mean Corpuscular Hgb 30.6 pg (27.0-32.0); Mean Corpuscular Volume 96.8 fL (81-99); Mean Platelet Vol. 9.8 fl (6.2-12.0); Monocyte# 0.57 X10^3/uL; Monocyte% 10.3 % (0-10); NRBC Flagged by Analyzer 0 % (0-5); Neutrophil # 3.83 X10^3/uL (2.7-7.7); Neutrophil % 68.9 % (47-70); Platelet Count 126 K/mm3 (150-450); RBC Distribution Width CV 15.9 % (11.6-14.6); RBC Distribution Width SD 56.2 fl (35.1-43.9); Red Blood Count 3.17 M/mm3 (4.2-5.4); White Blood Count 5.6 K/mm3 (4.4-11.0)
[2024-05-31 13:43] LABS: ALB/GLOB Ratio 0.9 RATIO (0.9-2.4); AST(SGOT) 29 U/L (<=31); Alanine Aminotransfer ALT/SGPT 29 U/L (<=34); Albumin, Serum 3.1 g/dL (3.4-4.8); Alkaline Phosphatase 49 U/L (35-104); Anion Gap 9 (5-15); BUN 15 mg/dL (4-19); BUN/Creat Ratio 23.4 RATIO (10-20); Carbon Dioxide 23.7 mmol/L (21.0-32.0); Chloride 105 mmol/L (98-108); Creatinine, Serum 0.65 mg/dL (0.70-1.20); EST Glomerular Filtration Rate 85 (>60); Globulin 3.4 g/dL (2.2-4.2); Glucose 76 mg/dL (70-99); Protein, Total 6.5 g/dL (5.9-8.4); Sodium Level 138 mmol/L (133-145); Total Bilirubin 0.51 mg/dL (0.00-1.30); Vitamin D,25 Hydroxy 32.7 ng/mL (30-100)
== END ==
LOC: OLS.WHLTSB 05:00
PROVIDERS: PCP Internal Medicine; Visit Provider Internal Medicine
DX: E55.9 Vitamin D deficiency, unspecified (principal); I25.10 Atherosclerotic heart disease of native coronary artery without angina pectoris; I49.9 Cardiac arrhythmia, unspecified
CPT/HCPCS: 36415; 80053; 82306; 85025

== ENCOUNTER → 2024-06-16 | Outpatient (REF) | payer MEDICARE, BC, SELFPAY | LOC: OLS.WHLTSB 05:00 | PROVIDERS: PCP Internal Medicine; Visit Provider Internal Medicine | DX: I25.10 Atherosclerotic heart disease of native coronary artery without angina pectoris (principal); Z83.3 Family history of diabetes mellitus; N39.0 Urinary tract infection, site not specified; R77.0 Abnormality of albumin | CPT/HCPCS: 36415; 83036 ==

== ENCOUNTER → 2024-07-05 | Outpatient (REF) | payer MEDICARE, BC, SELFPAY ==
[2024-07-05 08:04] LABS: Absolute Lymphocyte Count 0.92 X10^3/uL (0.83-4.51); Absolute Neutrophil Count 4.1 X10^3/uL (2.0-7.7); Basophil# 0.03 X10^3/uL; Basophil% 0.5 % (0-1); Eosinophil# 0.07 X10^3/uL; Eosinophils% 1.2 % (0-5); Hemoglobin 10.3 g/dL (12.0-15.0); Lymphocyte # 0.92 X10^3/ul (0.83-4.51); Lymphocyte % 15.9 % (19-41); Mean Corp Hgb Conc 33.2 g/dL (32-36); Mean Corpuscular Hgb 31.8 pg (27.0-32.0); Mean Corpuscular Volume 95.7 fL (81-99); Mean Platelet Vol. 9.6 fl (6.2-12.0); Monocyte# 0.65 X10^3/uL; Monocyte% 11.3 % (0-10); NRBC Flagged by Analyzer 0 % (0-5); Neutrophil # 4.06 X10^3/uL (2.7-7.7); Neutrophil % 70.4 % (47-70); Platelet Count 151 K/mm3 (150-450); RBC Distribution Width CV 15.9 % (11.6-14.6); RBC Distribution Width SD 55.2 fl (35.1-43.9); Red Blood Count 3.24 M/mm3 (4.2-5.4); White Blood Count 5.8 K/mm3 (4.4-11.0)
[2024-07-05 08:30] LABS: ALB/GLOB Ratio 0.9 RATIO (0.9-2.4); AST(SGOT) 32 U/L (<=31); Alanine Aminotransfer ALT/SGPT 23 U/L (<=34); Albumin, Serum 2.9 g/dL (3.4-4.8); Alkaline Phosphatase 46 U/L (35-104); Anion Gap 9 (5-15); BUN 12 mg/dL (4-19); BUN/Creat Ratio 20.6 RATIO (10-20); Calcium,Total 8.9 mg/dL (7.6-11.0); Carbon Dioxide 24.8 mmol/L (21.0-32.0); Chloride 103 mmol/L (98-108); Creatinine, Serum 0.59 mg/dL (0.70-1.20); EST Glomerular Filtration Rate 87 (>60); Globulin 3.3 g/dL (2.2-4.2); Glucose 76 mg/dL (70-99); Protein, Total 6.3 g/dL (5.9-8.4); Sodium Level 137 mmol/L (133-145); Total Bilirubin 0.72 mg/dL (0.00-1.30)
== END ==
LOC: OLS.WHLTSB 05:00
PROVIDERS: PCP Internal Medicine; Visit Provider Internal Medicine
DX: D64.9 Anemia, unspecified (principal); I25.10 Atherosclerotic heart disease of native coronary artery without angina pectoris; N39.0 Urinary tract infection, site not specified; R77.0 Abnormality of albumin; K20.90 Esophagitis, unspecified without bleeding; I49.9 Cardiac arrhythmia, unspecified; Z79.899 Other long term (current) drug therapy
CPT/HCPCS: 36415; 80053; 83036; 85025

== ENCOUNTER → 2024-07-07 | Outpatient (REF) | payer MEDICARE, BC, SELFPAY ==
[2024-07-07 08:30] LABS: International Normalized Ratio 1.2; Prothrombin Time (Protime)PT. 15.5 SECONDS (11.7-14.9)
== END ==
LOC: OLS.WHLTSB 05:00
PROVIDERS: PCP Internal Medicine; Visit Provider Internal Medicine
DX: R19.7 Diarrhea, unspecified (principal); I25.10 Atherosclerotic heart disease of native coronary artery without angina pectoris; R77.0 Abnormality of albumin; K20.90 Esophagitis, unspecified without bleeding; Z83.3 Family history of diabetes mellitus; R23.3 Spontaneous ecchymoses; R63.4 Abnormal weight loss
CPT/HCPCS: 36415; 84439; 84443; 85610

== ENCOUNTER → 2024-07-08 | Outpatient (REF) | payer MEDICARE, BC, SELFPAY | LOC: OLS.WHLTSB 12:00 | PROVIDERS: PCP Internal Medicine; Visit Provider Internal Medicine | DX: R19.7 Diarrhea, unspecified (principal); I25.10 Atherosclerotic heart disease of native coronary artery without angina pectoris | CPT/HCPCS: 83630; 87493; 87506 ==

== ENCOUNTER → 2024-08-02 | Outpatient (REF) | payer MEDICARE, BC, SELFPAY ==
[2024-08-02 07:44] LABS: Absolute Lymphocyte Count 0.96 X10^3/uL (0.83-4.51); Absolute Neutrophil Count 4.6 X10^3/uL (2.0-7.7); Basophil# 0.04 X10^3/uL; Basophil% 0.6 % (0-1); Eosinophil# 0.09 X10^3/uL; Eosinophils% 1.4 % (0-5); Hematocrit 36.7 % (37-47); Hemoglobin 12.1 g/dL (12.0-15.0); Lymphocyte # 0.96 X10^3/ul (0.83-4.51); Mean Corpuscular Hgb 32.4 pg (27.0-32.0); Mean Corpuscular Volume 98.4 fL (81-99); Mean Platelet Vol. 9.4 fl (6.2-12.0); Monocyte# 0.67 X10^3/uL; Monocyte% 10.5 % (0-10); NRBC Flagged by Analyzer 0 % (0-5); Neutrophil # 4.57 X10^3/uL (2.7-7.7); Neutrophil % 71.7 % (47-70); Platelet Count 141 K/mm3 (150-450); RBC Distribution Width CV 16.2 % (11.6-14.6); RBC Distribution Width SD 58.4 fl (35.1-43.9); Red Blood Count 3.73 M/mm3 (4.2-5.4); White Blood Count 6.4 K/mm3 (4.4-11.0)
[2024-08-02 07:48] LABS: ALB/GLOB Ratio 0.9 RATIO (0.9-2.4); AST(SGOT) 33 U/L (<=31); Alanine Aminotransfer ALT/SGPT 34 U/L (<=34); Albumin, Serum 3.4 g/dL (3.4-4.8); Alkaline Phosphatase 63 U/L (35-104); Anion Gap 9 (5-15); BUN 16 mg/dL (4-19); BUN/Creat Ratio 27.8 RATIO (10-20); Calcium,Total 9.2 mg/dL (7.6-11.0); Carbon Dioxide 23.8 mmol/L (21.0-32.0); Chloride 104 mmol/L (98-108); Creatinine, Serum 0.58 mg/dL (0.70-1.20); EST Glomerular Filtration Rate 87 (>60); Globulin 3.7 g/dL (2.2-4.2); Glucose 79 mg/dL (70-99); Potassium 4.4 mmol/L (3.3-5.1); Protein, Total 7.1 g/dL (5.9-8.4); Sodium Level 137 mmol/L (133-145); Total Bilirubin 0.73 mg/dL (0.00-1.30)
== END ==
LOC: OLS.WHLTSB 04:00
PROVIDERS: PCP Internal Medicine; Referring Provider Internal Medicine; Visit Provider Internal Medicine
DX: I49.9 Cardiac arrhythmia, unspecified (principal)
CPT/HCPCS: 36415; 80053; 85025

== ENCOUNTER → 2024-08-06 | Outpatient (CLI) | payer MEDICARE, BC, SELFPAY ==
--- NOTE | 2024-08-06 14:24 | CT_ITS ---
PROCEDURE: CT ABD/PELVIS W/WO CONTRAST 08/06/2024 REASON FOR EXAM: UTI /DIARRHEA/ BLADDER FISTULA TECHNIQUE: Abdomen and pelvis CT with intravenous contrast. Coronal and Sagittal reconstruction series were provided. PATIENT PREPARATION: Per protocol ORAL CONTRAST TYPE: None. CONTRAST: Isovue-300 50 VOLUME: 100 mL One or more dose reduction techniques were used (e.g., Automated exposure control, adjustment of the mA and/or kV according to patient size, use of iterative reconstruction technique. Precontrast images are provided. Delayed post IV contrast images. RADIATION DOSE SUMMARY: CTDlvol: 25.2 mGy DLP: 1169 mGycm COMPARISON: None. FINDINGS: Cirrhotic liver. Mild splenomegaly. Cholelithiasis. Mild diffuse thickening of the underdistended gallbladder. 3 mm stone in the most distal aspect of the common bile duct. Diffuse thickening of the wall of the bladder suggestive of mild cystitis. Gas density is noted in the lumen of the bladder. Please correlate with recent instrumentation to exclude the presence of fistula. No evidence of contrast leakage on delayed phase images from the bladder. Diffuse colonic diverticulosis. Minimal thickening of the mid sigmoid colon, possibly minimal colitis. Diffuse spondylosis. Fat containing umbilical hernia without incarceration. Small sliding hiatal hernia. Diffuse thickening of the stomach suggestive of gastritis. Normal extrahepatic biliary system. Normal pancreas. Normal bilateral adrenal glands. Normal size of the right kidney. There is no right renal mass. There are no right renal calculi. There is no right hydronephrosis. Normal visualized right ureter. Normal size of the left kidney. There is no left renal mass. There are no left renal calculi. There is no left hydronephrosis. Normal visualized left ureter. Normal small intestine. There is no demonstrated peritoneal fluid. Normal abdominal aorta. Normal inferior vena cava. Normal retroperitoneum. There is no pelvic mass lesion or lymphadenopathy. There is no pelvic fluid. CT/CT Abd/Pelvis W/WO Contrast IMPRESSION: 1. Cirrhotic liver. 2. Mild splenomegaly. 3. Cholelithiasis. 4. Mild diffuse thickening of the underdistended gallbladder. 5. 3 mm stone in the most distal aspect of the common bile duct. 6. Diffuse thickening of the wall of the bladder suggestive of mild cystitis. 7. Gas density is noted in the lumen of the bladder. Please correlate with rec ent instrumentation to exclude the presence of fistula. 8. No evidence of contrast leakage on delayed phase images from the bladder. 9. Diffuse colonic diverticulosis. 10. Minimal thickening of the mid sigmoid colon, possibly minimal colitis. 11. Diffuse spondylosis. 12. Fat containing umbilical hernia without incarceration. 13. Small sliding hiatal hernia. 14. Diffuse thickening of the stomach suggestive of gastritis. Reading [facility]
[2024-08-06] MEDS: 0.9% Saline Lock 10 ML Syringe IV (14:46)
== END | disposition home or self-care (01) ==
LOC: CT 14:22
PROVIDERS: PCP Internal Medicine; Referring Provider Urology; Visit Provider Urology
DX: N39.0 Urinary tract infection, site not specified (principal); R19.7 Diarrhea, unspecified; N32.1 Vesicointestinal fistula
CPT/HCPCS: 74178; Q9967

== ENCOUNTER → 2024-08-30 05:00 | Outpatient (REF) | payer MEDICARE, BC, SELFPAY ==
--- OUTSIDE RECORDS SUMMARY | 2024-08-30 04:15 | XMS RPT_ITS | CCD ---
Author Organization [facility] Care Team Providers Care Ged Preparation Teacher Name Role Phone Galina Iraheta MD Primary Care Provider 13, Pharmacist Unavailable Galina Iraheta MD Primary Care Provider Dr. Galina Iraheta Primary Care Provider [place] [employer] CONSULTANT, [employer] CONSULTANT-C Galina Attending Provider BASILIA Jerome Attending Unavailable GALINA IRAHETA Referring Unavailable GALINA IRAHETA Primary Care Unavailable BASILIA HERNÁNDEZ Attending Unavailable JAYDE HEBERT Referring Unavailable GALINA IRAHETA Primary Care Unavailable Dr. Galina Iraheta Primary Care Provider [place] [employer]ANT, [employer] CONSULTANT-C Galina Attending Provider Galina Pedro MD Primary Care Provider Lindai Sal SEWELL Unavailable Dr. Galina Iraheta Primary Care Provider [place] [employer] CONSULTANT, [employer] CONSULTANT-C Galina Attending Provider Dr. Galina Pedro Primary Care Provider [place] [employer] CONSULTANT, [employer] CONSULTANT-C Galina Attending Provider Galina Pedro MD Primary Care Provider Dr. Galina Iraheta Primary Care Provider [place] [employer] CONSULTANT, [employer] CONSULTANT-C Galina Attending Provider Dr. Galina Pedro Primary Care Provider [place] [employer] CONSULTANT, [employer] CONSULTANT-C Galina Attending Provider Reji Reyna MD Primary Care Provider Dr. Galina Iraheta Primary Care Provider Siri SAP BW CONSULTANT, [employer] BW CONSULTANT-C Galina Attending Provider Dr. Galina Iarheta Primary Care Provider Siri [employer] BW CONSULTANT, [employer] BW CONSULTANT-C Galina Attending Provider Maribell PANG, Efewongbe B Primary Care Provider Maribell PANG, Efewongbe B Primary Care Provider Galina Iraheta MD Primary Care Provider 13, Pharmacist Unavailable Dr. Galina Iraheta MD Primary Care Provider Maribell PANG, Efbrunildabe Attending Provider Unavailtasia Reyna MD, Efewongbe Referring Provider Unavailtasia Horner [employer] CONSULTANT-C, Galina Attending Provider OLEGHE, EFEWONGBE B Primary Care Unavailable RAY, THALIA Attending Unavailable OLEGHE, EFEWONGBE B Primary Care Unavailable RAY, THALIA Referring Unavailable OLEGHE, EFEWONGBE B Primary Care Unavailable VIKASH SYLVESTER Attending Unavailable OLEGHE, EFEWONGBE B Primary Care Unavailable VETOVITZ, STELLA Referring Unavailable VETOVITZ, STELLA Attending Unavailable OLEGHE, EFEWONGBE B Primary Care Unavailable ARREOLA, CASSIDY Referring Unavailable ARREOLA, CASSIDY Attending Unavailable OLEGHE, EFEWONGBE B Primary Care Unavailable ARREOLA, CASSIDY Referring Unavailable OLEGHE, EFEWONGBE B Primary Care Unavailable RAY, THALIA Referring Unavailable OLEGHE, EFEWONGBE B Primary Care Unavailable OLEGHE, EFEWONGBE B Primary Care Unavailable ARREOLA, CASSIDY Referring Unavailable OLEGHE, EFEWONGBE B Primary Care Unavailable ARREOLA, CASSIDY Referring Unavailable OLEGHE, EFEWONGBE B Primary Care Unavailable OLEGHE, EFEWONGBE B Primary Care Unavailable RAY, THALIA Attending Unavailable OLEGHE, EFEWONGBE B Primary Care Unavailable ARREOLA, CASSIDY Referring Unavailable OLEGHE, EFEWONGBE B Primary Care Unavailable ARREOLA, CASSIDY Referring Unavailable OLEGHE, EFEWONGBE B Primary Care Unavailable ARREOLA, CASSIDY Referring Unavailable OLEGHE, EFEWONGBE B Primary Care Unavailable ARREOLA, CASSIDY Referring Unavailable OLEGHE, EFEWONGBE B Primary Care Unavailable ARREOLA, CASSIDY Referring Unavailable OLEGHE, EFEWONGBE B Primary Care Unavailable SELF Referring Unavailable THALIA MONTERROSO Attending Unavailable OLEGHE, EFEWONGBE B Primary Care Unavailable SELF Referring Unavailable OLEGHE, EFEWONGBE B Primary Care Unavailable ARREOLA, CASSIDY Referring Unavailable OLEGHE, EFEWONGBE B Primary Care Unavailable ARREOLA, CASSIDY Referring Unavailable ARREOLA, CASSIDY Attending Unavailable OLEGHE, EFEWONGBE B Primary Care Unavailable OLEGHE, EFEWONGBE B Primary Care Unavailable OLEGHE, EFEWONGBE B Primary Care Unavailable THALIA MONTERROSO Attending Unavailable OLEGHE, EFEWONGBE B Primary Care Unavailable Alistair PANG, Dr. Mojica Primary Care Provider Reji Reyna MD Attending Provider UnavailDr. Reji Leonard MD Attending Provider [phone] Dr. Galina Iraheta MD Primary Care Provider Reji Reyna MD Attending Provider UnavailDr. Hiwot Casillas MD Attending Provider Dr. Hiwot Abdullahi MD Referring Provider Dr. Reji Reyna MD Primary Care Provider Dr. Reji Reyna MD Referring Provider Carmella Amador Attending Provider Dr. Charles Ramos MD Attending Provider Oleghe OLS, Efewongbe Attending Unavailabl e Ganta, Galina Primary Care Unavailable Oleghe TOSHIA Efewongbe Attending Unavailabl e Ganta, Galina Primary Care Unavailable Oleghe OLS, Efewongbe Attending Unavailabl e Ganta, Galina Primary Care Unavailable Oleghe OLS, Efewongbe Attending Unavailabl e Ganta, Galina Primary Care Unavailable Ganta, Galina Primary Care Unavailable Oleghe TOSHIA Efmerylongbe Attending Unavailabl e Ganta, Galina Primary Care Unavailable Oleghe OLS, Efewongbe Attending Unavailabl e Oleghe OLS, Efewongbe Referring Unavailabl e Ganta, Galina Primary Care Unavailable Oleghe OLS, Efewongbe Attending Unavailabl e Oleghe OLS, Efewongbe Attending Unavailabl e Ganta, Galina Primary Care Unavailable Oleghe OLS, Efewongbe Referring Unavailabl e Oleghe OLS, Efewongbe Attending Unavailabl e Ganta, Galina Primary Care Unavailable Oleghe OLS, Efewongbe Attending Unavailabl e Ganta, Galina Primary Care Unavailable Oleghe OLS, Efewongbe Attending Unavailabl e Ganta, Galina Primary Care Unavailable Oleghe OLS, Efewongbe Attending Unavailabl e Ganta, Galina Primary Care Unavailable Oleghe OLS, Efewongbe Attending Unavailabl e Ganta, Galina Primary Care Unavailable Oleghe, Efewongbe Primary Care Unavailable Hiwot Abdullahi Referring Unavailable Hiwot Abdullahi Attending Unavailable Oleghe OLS, Efewongbe Referring Unavailabl e Ganta, Galina Primary Care Unavailable Oleghe OLS, Efewongbe Attending Unavailabl e Ganta, Galina Primary Care Unavailable Oleghe OLS, Efewongbe Attending Unavailabl e Ganta, Galina Primary Care Unavailable [place] [employer] CONSULTANT, Galina Attending Unavailable Ganta, Galina Primary Care Unavailable [place] [employer] CONSULTANT, Galina Attending Unavailable Oleghe OLS, Efewongbe Attending Unavailabl e Ganta, Galina Primary Care Unavailable Oleghe OLS, Efewongbe Attending Unavailabl e Ganta, Galina Primary Care Unavailable Oleghe OLS, Efewongbe Attending Unavailabl e Ganta, Galina Primary Care Unavailable Oleghe OLS, Efewongbe Attending Unavailabl e Ganta, Galina Primary Care Unavailable Ganta, Galina Primary Care Unavailable Oleghe, Efewongbe Attending Unavailable Oleghe OLS, Efewongbe Attending Unavailabl e Ganta, Galina Primary Care Unavailable Oleghe, Efewongbe Attending Unavailable Ganta, Galina Primary Care Unavailable Carmella Deluca Attending Unavailable Oleghe, Efewongbe Referring Unavailable Oleghe, Efewongbe Primary Care Unavailable Oleghe, Efewongbe Primary Care Unavailable Charles Ramos Attending Unavailable Carmella Deluca Attending Unavailable Oleghe, Efewongbe Referring Unavailable Jamese, Efewongbe Primary Care Unavailable Maribell, Efewongbe Primary Care Unavailable Charles Ramos Attending Unavailable [facility] Primary Care Unavailable Galina Horner NP Attending Unavailable Maribell Jas POPEongbe Attending Unavailabl e [facility] Primary Care Unavailable [facility] Primary Care Unavailable Maribell OLS Efewongbe Attending Unavailabl e Allergies Allergy Classification Reported Allergen(s) Allergy Type Date of Onset Reaction(s) Facility (20 sources) Angiotensin-converting enzyme inhibitor agent; Translations: [DESMOND INHIBITORS] Drug Intolerance Cough [facility] (20 sources) Cephalexin; Translations: [CEPHALEXIN] Drug Allergy Other: See Comments, Formerly named [facility] (20 sources) Clindamycin; Translations: [CLINDAMYCIN] Drug Allergy Other: See Comments, Formerly named [facility] (20 sources) cyclobenzaprine; Translations: [CYCLOBENZAPRINE] Drug Allergy Formerly named [facility] (20 sources) Diclofenac / miSOPROStol; Translations: [DICLOFENAC-MISOPROSTO L] Drug Allergy [address] [facility] (20 sources) hydroCHLOROthiazide; Translations: [HYDROCHLOROTHIAZIDE] Drug Allergy Mental Status Change [facility] (20 sources) Lisinopril; Translations: [LISINOPRIL] Drug Allergy Unknown [facility] (20 sources) metroNIDAZOLE; Translations: [METRONIDAZOLE HCL] Drug Allergy Mental Status Change, Shortness of Breath [facility] (20 sources) Naproxen; Translations: [NAPROXEN] Drug Allergy Other: See Comments [facility] (20 sources) Naproxen; Translations: [NAPROXEN SODIUM] Drug Allergy Formerly named [facility] (20 sources) oxybutynin; Translations: [OXYBUTYNIN] Drug Allergy Other: See Comments [facility] (20 sources) PARoxetine; Translations: [PAROXETINE] Drug Allergy 03-03-2 005 Contraindicat ion-Medical Surgical [facility] (20 sources) prednisoLONE / Sulfacetamide; Translations: [SULFACETAMIDE-PREDNIS OLONE] Drug Allergy [address] [facility] (20 sources) Sulfonamides (Antibiotic); Translations: [SULFA (SULFONAMIDE ANTIBIOTICS)] Drug Allergy Unknown [facility] Work Phone: (20 sources) adhesives [Other] Propensity to adverse reactions Other: See Comments [facility] (20 sources) Adhesive agent; Translations: [adhesive] Allergy to substance Unknown [facility] (20 sources) cyclobenzaprine; Translations: [cyclobenzaprine HCl] Drug Allergy Unknown [facility] (20 sources) Diclofenac; Translations: [diclofenac sodium] Drug Allergy Unknown [facility] (20 sources) metroNIDAZOLE Drug Allergy Unknown [facility] (20 sources) miSOPROStol Drug Allergy Unknown [facility] (20 sources) PARoxetine; Translations: [paroxetine HCl] Drug Allergy Unknown [facility] (20 sources) prednisoLONE; Translations: [prednisolone acetate] Drug Allergy Unknown [facility] (20 sources) Sulfacetamide; Translations: [sulfacetamide sodium] Drug Allergy Unknown [facility] (20 sources) Angiotensin-converting enzyme inhibitor agent Drug Intolerance Cough [facility] (20 sources) Angiotensin Converting Enzyme (Desmond) Inhibitors Allergy to substance Unknown [facility] Comment on above: ERROR (2 sources) OTHER; Translations: [OTHER] Propensity to adverse reactions (disorder) [facility] Other [facility] (12 sources) Hydroxychloroquine; Translations: [HYDROXYCHLOROQUINE] Drug Allergy [address] [facility] (1 source) Angiotensin Converting Enzyme (Desmond) Inhibitors Drug allergy (disorder) [facility] Repository (1 source) hydroCHLOROthiazide Drug Allergy [facility] Repository (1 source) Lisinopril Drug Allergy [facility] Repository (1 source) metroNIDAZOLE Drug Allergy 025 [facility] Repository (1 source) miSOPROStol Drug Allergy 025 [facility] Repository (1 source) Naproxen Drug Allergy 025 [facility] Repository Medications Current Medications Medication Drug Class(es) [...] days. 9 tablet 0 07/05/2021 07/08/2021 Active Comment on above: Take 1 tablet by natalie th every 8 hours as needed for pain for up to 3 days. ascorbic acid 500 mg oral tablet (20 sources) Vitamin C Start: 08-20-2021 take 1 tablet by mouth once daily Ascorbic Acid (Vitamin C) (Vitamin C) 500 mg Tablet Active 500 mg PO DAILY August 20, 2021 12:00am End: 2021 take 1 tablet by mouth once daily ascorbic acid, vitamin C, (VITAMIN C) 500 mg tablet Take 500 mg by mouth once daily. 2021 Discontinued Comment on above: Take 500 mg by mouth once daily. biotin 5 mg oral tablet (20 sources) Start: 03-26-2018 take 5 mg by mouth once daily Biotin Active 5 MG PO DAILY March 26, 2018 11:19am Start: 03-26-2018 Biotin Active 5000 MG PO 1200 March 26, 2018 12:00am End: 2021 take 5000 ug by mouth once daily biotin 5,000 mcg subl Take 5,000 mcg by mouth once daily. 2021 Discontinued Comment on above: Take 5,000 mcg by mo [facility] once daily. Calcium Carb And Citrat-Mag Ox (20 sources) Start: 08-20-2021 take 1 tablet by mouth once daily Calcium Carb And Citrat-Mag Ox Active 1 TABLET PO DAILY August 20, 2021 8:15am Start: 08-20-2021 take 1 tablet by natalie th once daily Calcium Carb And Citrat-Mag Ox Active 1 TABLET PO DAILY August 19, 2021 11:00pm Start: 08-20-2021 take 1 tablet by natalie th once daily Calcium Carb And Citrat-Mag Ox Active 1 TABLET PO DAILY August 20, 2021 12:00am calcium carbonate 1250 mg / cholecalciferol 200 unt oral tablet (20 sources) Vitamin D Start: 2021 End: 09-07-2021 take 1 tablet by mouth once daily rihevbz-olvhftxdq-zroeuqz D3 500 mg-5 mcg (200 unit) per tablet Take 1 tablet by mouth once daily. 90 tablet 3 08/08/2021 Active Comment on above: Take 1 tablet by natalie once daily. calcium citrate 1500 mg / cholecalciferol 250 unt oral tablet (14 sources) Vitamin D Start: 08-30-2014 Calcium Citrate-Vitamin D3 Active 1 EACH PO TWICE A DAY August 30, 2014 10:14am End: 2021 take 1 tablet by mouth once daily calcium citrate-vitamin D3 (CITRACAL+D) 315-200 mg-unit tab Take 1 tablet by mouth once daily. 2021 Discontinued Comment on above: Take 1 tablet by natalie once daily. Vrodlqw-Yhg-Oad H6-T2-Sfignnkx (Citracal Plus) 691-06-1-125 fr-rq-et-unit Tablet (20 sources) Start: 08-20-2021 take 1 tablet by mouth twice daily Pgwgjfm-Nzh-Wna Q4-I9-Pzeznvpt (Citracal Plus) 036-16-6-125 kn-sc-yt-unit Tablet Active 1 TABLET PO TWICE A DAY August 20, 2021 8:15am Start: 08-20-2021 End: 08-13-2024 Qtpdtya-Upb-Zyq Y2-K1-Zbyhxe ls (Citracal Plus) 377-30-8-125 qo-uk-tu-unit Tablet Discontinued 1 {tbl} PO TWICE A DAY August 20, 2021 12:00am August 13, 2024 2:28pm Start: 08-20-2021 Nzthxcd-Nhu-Yx t D6-N0-Hrxktdbv (Citracal Plus) 597-72-8-125 ji-hv-xs-unit Tablet Active 1 {tbl} PO TWICE A DAY August 20, 2021 12:00am Start: 08-20-2021 take 1 tablet by natalie twice daily Svrynhz-Dvn-Zcy H0-S8-Wpryjmmx (Citracal Plus) 523-83-4-125 ez-gh-ho-unit Tablet Active 1 TABLET PO TWICE A DAY August 19, 2021 11:00pm Start: 08-20-2021 take 1 tablet by natalie twice daily Wecmkpp-Vqe-Lxu B8-D2-Abzynwna (Citracal Plus) 195-43-0-125 zu-dp-mr-unit Tablet Active 1 TABLET PO TWICE A DAY August 20, 2021 12:00am carboxymethylcellulose sodium 10 mg/ml ophthalmic solution (4 sources) Start: 08-13-2024 take 1 drop(s) into the eye(s) every four hours as needed Carboxymethylcellulose Sodium (Artificial Tears (Cmc)) 1 % drops Active 1 NMA OPHTHALMIC Q4H as needed August 13, 2024 12:00am cephalexin 500 mg oral capsule (3 sources) Cephalosporin Antibacterial Start: 08-07-2019 take 500 mg by mouth every six hours Cephalexin Active 500 MG PO EVERY 6 HOURS August 07, 2019 2:14pm cetirizine hydrochloride 10 mg oral tablet (20 sources) Histamine-1 Receptor Antagonist Start: 08-05-2011 take 1 tablet by mouth once daily cetirizine (ZYRTEC) 10 mg tablet Indications: Allergic rhinitis, cause unspecified Take 1 tablet by mouth once daily. 90 tablet 3 08/05/2011 Active Comment on above: Take 1 tablet by [facility] once daily. cholecalciferol 0.025 mg chewable tablet (20 sources) Vitamin D Start: 08-20-2021 take 1 tablet by mouth once daily Cholecalciferol (Vitamin D3) (Vitamin D3) 25 mcg (1,000 unit) Tablet,Chewable Active 25 ug PO DAILY August 20, 2021 12:00am End: 2021 take 1 tablet by mouth once daily cholecalciferol (VITAMIN D) 1,000 unit tab tablet Take 1,000 Units by mouth once daily. 2021 Discontinued cholecalciferol (VITAMIN D-3) 50 mcg (2,000 unit) tablet Take 2,000 Units by mouth once daily. Taking 1000 0 Active Comment on above: Take 2,000 Units by mouth once daily. Taking 1000 Take 1,000 Units by mouth once daily. copper gluconate 2 mg oral tablet (4 sources) Start: 08-13-2024 take 1 tablet by mouth once daily Copper Gluconate 2 mg tablet Active 2 mg PO daily August 13, 2024 12:00am Cranberry Fruit (20 sources) Non-Standardized Food Allergenic Extract, Non-Standardized Plant Allergenic Extract Start: 08-20-2021 take 1 tablet by mouth once daily Cranberry Fruit (Cranberry) 450 mg Tablet Active 450 MG PO DAILY August 20, 2021 8:15am Start: 08-20-2021 take 1 tablet by natalie th once daily Cranberry Fruit (Cranberry) 450 mg Tablet Active 450 MG PO DAILY August 19, 2021 11:00pm Start: 08-20-2021 take 1 tablet by natalie th once daily Cranberry Fruit (Cranberry) 450 mg Tablet Active 450 MG PO DAILY August 20, 2021 12:00am End: 2021 take 2 capsules by mouth once daily Cranberry 400 mg cap Take 2 capsules by mouth once daily. 2021 Discontinued take 2 capsules by m outh once daily Cranberry 400 mg cap Take 2 capsules by mouth once daily. 0 Suspended take 2 capsules by m outh once daily Cranberry 400 mg cap Take 2 capsules by mouth once daily. 0 Active Comment on above: Take 2 capsules by m outh once daily. 1 ml denosumab 60 mg/ml prefilled syringe (2 sources) RANK Ligand Inhibitor Start: 08-27-2024 End: 08-22-2025 denosumab 60 mg injection (PROLIA) Dextran (20 sources) take 1 drop(s) into the eye(s) every four hours as needed dextran 70/hypromellose (ARTIFICIAL TEARS, PF, OPHTHALMIC) Use 1 Drop in eyes every 4 hours as needed. Active take 1 drop(s) into the eye(s) every four hours as needed dextran 70/hypromellose (ARTIFICIAL TEAR S, PF, OPHTHALMIC) Use 1 Drop in eyes every 4 hours as needed. 0 Active diclofenac sodium 0.01 mg/mg topical gel (20 sources) Nonsteroidal Anti-inflammatory Drug Start: 03-26-2018 Diclofenac Sodium (Voltaren) 100 GM gel Active 100 g TP NEEDED as needed for Pain March 26, 2018 1:00am Start: 05-09-2017 End: 02-24-2024 diclofenac sodium (VOLTAREN) 1 % topical gel Apply 4 g to affected area as needed. 1 Tube 5 05/09/2017 03/06/2022 Discontinued Comment on above: Apply 4 g to affecte d area as needed. docusate sodium 50 mg / sennosides, fdc 8.6 mg oral capsule (20 sources) Start: 03-06-20 Sennosides-Docusate Sodium (Senna Plus) 8.6-50 mg Capsule Active 1 NMA PO TWICE A DAY as needed for constipation March 06, 2022 1:00am enteric contrast (will be provided with radiology test) (1 source) Start: 02-24-20 End: 02-25-20 enteric contrast (will be provided with radiology test) Indications: Iron deficiency anemia due to chronic blood loss , Bilateral hip pain , Generalized abdominal pain , Abdominal bloating , Personal history of breast cancer , Occult blood in stools For CT CHESTABD/PEL W IVCON Routine order Administer, As Directed One Time Only, via Oral, Rectal, both Oral and Rectal, Enteric Tube, Stoma or Indwelling Catheter, Enteric Contrast as designated per enteric contrast guidelines 1 Each 02/24/2024 02/25/2024 Active escitalopram 10 mg oral tablet (20 sources) Serotonin Reuptake Inhibitor Start: 02-02-20 End: 03-14-20 take 1 tablet by mouth once daily escitalopram oxalate (LEXAPRO) 10 mg tablet Indications: Mild depression Take 1 tablet by mouth once daily. 90 tablet 3 03/14/2021 Active Comment on above: Take 1 tablet by natalie th once daily. ferrous gluconate 324 mg oral tablet (20 sources) Start: 03-06-20 take 1 tablet by mouth once daily Ferrous Gluconate 324 mg (37.5 mg iron) Tablet Active 324 mg PO DAILY March 06, 2022 1:00am Comment on above: Take 324 mg by mouth . Take 324 mg by mouth once daily. fluconazole 150 mg oral tablet (1 source) Azole Antifungal Start: 07-04-19 End: 07-05-19 take 1 tablet by mouth once daily fluconazole (DIFLUCAN) 150 mg tablet Take 1 tablet by mouth once daily for 1 day. 1 tablet 0 07/03/2021 07/04/2021 Active Comment on above: Take 1 tablet by natalie th once daily for 1 day. fluticasone propionate 0.05 mg/actuat metered dose nasal spray (20 sources) Corticosteroid Start: 08-21-19 Fluticasone Propionate (Flonase Allergy Relief) 50 mcg/actuation [place],Suspension Active 1 NMA INTRANASAL DAILY August 20, 2021 12:00am Start: 08-20-2021 Fluticasone Pr opionate (Flonase Allergy Relief) 50 mcg/actuation [place],Suspension Active 1 SPRAY INTRANASAL DAILY August 20, 2021 12:00am take 2 spray(s) nasa l route once daily fluticasone (FLONASE) 50 mcg/actuation nasal spray Use 2 Sprays in each nostril once daily. Active Comment on above: Use 2 Sprays in each nostril once daily. furosemide 20 mg oral tablet (20 sources) Loop Diuretic Start: 04-09-2022 take 1 tablet by mouth every other day furosemide (LASIX) 20 mg tablet Indications: Shortness of breath Take 1 tablet by mouth every other day. 04/09/2022 Active Start: 2021 End: 03-06-2022 take 1 tablet by mouth every other day Furosemide (Lasix) 20 mg Tablet Active 20 mg PO EVERY OTHER DAY August 20, 2021 12:00am Start: 09-13-2020 End: 03-14-2021 take 1 tablet by mouth once daily furosemide (LASIX) 20 mg tablet Indications: Bilateral swelling of feet and ankles Take 1 tablet by mouth once daily. 90 tablet 3 03/14/2021 Active Comment on above: Take 1 tablet by natalie th once daily. Take 1 tablet by natalie th every other day in the morning. Take 1 tablet by natalie th every other day. gabapentin 600 mg oral tablet (20 sources) Anti-epileptic Agent Start: 06-28-2019 End: 03-14-2022 take 0.5 tablet by mouth once daily gabapentin (NEURONTIN) 600 mg tablet Indications: Neuropathy Take 0.5 tablets by mouth once daily. 45 tablet 3 03/14/2021 Active Start: 08-30-2014 take 600 mg by mouth once indio y Gabapentin Active 600 MG PO DAILY August 30, 2014 10:14am Start: 08-30-2014 Gabapentin 600 MG tablet Active 300 mg PO AT BEDTIME August 30, 2014 12:00am Start: 08-30-2014 take 300 mg by mouth at bedtim e Gabapentin Active 300 MG PO AT BEDTIME August 30, 2014 12:00am Comment on above: Take 0.5 tablets by mouth once daily. Glucos Sul 7gni-Wsl-Myfwb-C-Mn (Glucosamine Chondroitin) 550-30-1 mg Capsule (13 sources) Start: 08-20-2021 take 1 capsule by mouth at bedtime Glucos Sul 2exr-Pqt-Oojmt-C-M n (Glucosamine Chondroitin) 550-30-1 mg Capsule Active 1 CAP PO AT BEDTIME August 20, 2021 8:15am Start: 08-20-2021 take 1 capsule by mo uth at bedtime Glucos Sul 3xzz-Aav-Sexgz-C-Mn (Glucosamine Chondroitin) 550-30-1 mg Capsule Active 1 CAP PO AT BEDTIME August 19, 2021 11:00pm Start: 08-20-2021 take 1 capsule by mo uth at bedtime Glucos Sul 4yhb-Jkr-Nykkv-C-Mn (Glucosamine Chondroitin) 550-30-1 mg Capsule Active 1 CAP PO AT BEDTIME August 20, 2021 12:00am guaiFENesin 20 mg/ml oral solution (20 sources) Start: 03-06-2022 take 200 mg by mouth every four hours as needed for cough Guaifenesin 100 mg/5 mL Liquid Active 200 mg PO Q4H as needed for Cough March 06, 2022 1:00am Comment on above: Take 200 mg by mouth every 4 hours as needed. iv contrast (will be provided with radiology test) (1 source) Start: 02-24-2024 End: 02-25-2024 iv contrast (will be provided with radiology test) Indications: Iron deficiency anemia due to chronic blood loss , Bilateral hip pain , Generalized abdominal pain , Abdominal bloating , Personal history of breast cancer , Occult blood in stools CT Chest ABD/PEL-Inject, intravenously, once for 1 dose.No IV access, insert saline lock prior to the beginning of sedation, infusion, injection of imaging exam. Discontinue saline lock post exam. If Pt. has a central line or IVAD, may access for administration according to line specific nursing protocol. Once exam is complete flush line and de-access according to line specific nursing protocol in the CT contrast administration guidelines link. 1 Each 02/24/2024 02/25/2024 Active L.Acidoph, Paracasei,B. Lactis (16 sources) Start: 08-30-2014 L.Acidoph, Paracasei,B. Lactis Active 1 EACH PO DAILY August 30, 2014 10:14am Start: 08-30-2014 L.Acidchloé, Par acasei,B. Lactis Active 1 EACH PO DAILY August 29, 2014 11:00pm Start: 08-30-2014 L.Gigi, Par acasei,B. Lactis Active 1 EACH PO DAILY August 30, 2014 12:00am levothyroxine sodium 0.025 mg oral capsule (20 sources) l-Thyroxine Start: 08-20-2021 take 1 capsule by mouth once daily Levothyroxine 25 mcg Capsule Active 25 ug PO DAILY August 20, 2021 12:00am Start: 03-14-2021 take 1 tablet by natalie th once daily for thyroid dysfunction levothyroxine (LEVOXYL) 25 mcg tablet Take 1 tablet by mouth once daily. Take on empty stomach. For Thyroid 90 tablet 3 03/14/2021 Active Start: 12-11-2020 End: 03-02-2021 take 1 tablet by mouth once daily for thyroid dysfunction levothyroxine (LEVOXYL) 25 mcg tablet Take 1 tablet by mouth once daily. Take on empty stomach. For Thyroid 30 tablet 2 12/11/2020 03/02/2021 Discontinued Comment on above: Take 1 tablet by natalie th once daily. Take on empty stomach. For Thyroid melatonin 10 mg sublingual tablet (20 sources) Start: 03-26-2018 take 10 mg by mouth at bedtime Melatonin Active 10 MG PO AT BEDTIME March 26, 2018 11:19am Start: 03-26-2018 take 5 mg by mouth at bedtime Melatonin Active 5 MG PO AT BEDTIME March 26, 2018 12:00am End: 07-09-2021 take 2 tablets by mouth once daily at bedtime Melatonin 5 mg tab Take 10 mg by mouth daily at bedtime. 07/09/2021 Discontinued (Erroneous entry) Comment on above: Take 10 mg by mouth daily at bedtime. methenamine hippurate 1000 mg oral tablet (20 sources) Start: 09-27-19 End: 08-14-19 take 1 tablet by mouth twice daily at mealtime Methenamine Hippurate (HIPREX) 1 gram tablet Indications: Recurrent UTI Take 1 tablet by mouth two times a day with meals. 180 tablet 3 07/15/2023 Active Comment on above: Take 1 tablet by natalie th twice daily with meals. Methylcellulose (14 sources) Start: 08-31-19 take 2 tablets by mouth once daily Methylcellulose 4000cps (Bulk) Active 2 TABLET PO DAILY August 30, 2014 10:14am End: 07-09-2021 take 2 tablets by mouth once daily METHYLCELLULOSE (CITRUCEL ORAL) Take 2 tablets by mouth once daily. 07/09/2021 Discontinued (Erroneous entry) End: 07-09-2021 take 2 tablets by mouth once daily METHYLCELLULOSE (CITRUCEL ORAL) Take 2 tablets by mouth once daily. 0 07/09/2021 Discontinued (Erroneous entry) take 2 tablets by mo uth once daily METHYLCELLULOSE (CITRUCEL ORAL) Take 2 tablets by mouth once daily. 0 Active Comment on above: Take 2 tablets by mo uth once daily. 24 hr metoprolol succinate 25 mg extended release oral tablet (20 sources) beta-Adrenergic Nahun Start: 07-13-2021 End: 08-08-2021 take 1 tablet by mouth once daily metoprolol succinate ER (TOPROL XL) 25 mg 24 hr tablet Take 1 tablet by mouth once daily. 90 tablet 3 08/08/2021 Active Start: 03-14-2021 metoprolol tar trate, short acting, (LOPRESSOR) 50 mg tablet Indications: PAF (paroxysmal atrial fibrillation) (HCC) , Essential hypertension , Hyperglycemia TAKE ONE TABLET EVERY MORNING AND HALF TABLET EVERY EVENING 135 tablet 3 03/14/2021 Active Start: 03-03-2020 End: 02-28-2021 metoprolol tartrate, short a cting, (LOPRESSOR) 50 mg tablet Indications: PAF (paroxysmal atrial fibrillation) (HCC) , Essential hypertension , Hyperglycemia TAKE ONE TABLET EVERY MORNING AND HALF TABLET EVERY EVENING 135 tablet 3 03/03/2020 02/28/2021 Discontinued Start: 08-30-2014 take 25 mg by mouth twice daily Metoprolol Tartrate Active 25 MG PO TWICE A DAY August 30, 2014 10:14am Comment on above: TAKE ONE TABLET EVER Y MORNING AND HALF TABLET EVERY EVENING Take 1 tablet by natalie th once daily. modafinil 100 mg oral tablet (20 sources) Sympathomimetic-like Agent Start: 3 End: take 1 tablet by mouth once daily as needed modafinil (PROVIGIL) 100 mg tablet Take 100 mg by mouth once daily as needed. 10/18/2022 Active Comment on above: TAKE 1/2 to 1 TABLET BY MOUTH EVERY DAY as needed for hypersomnia MULTIVITAMIN TAB (20 sources) Start: 2 take 1 tablet by mouth once daily MULTIVITAMIN TAB Take 1 tablet by mouth once daily. 0 07/09/2021 Active Start: 07-09-2021 take 1 tablet by natalie th once daily MULTIVITAMIN TAB Take 1 tablet by mouth once daily. 0 07/09/2021 Suspended Start: 10-07-2007 take 1 tablet by natalie th once daily MULTIVITAMIN TAB Take one(1) tablet daily BY MOUTH. 0 10/07/2007 Active Comment on above: Take one(1) tablet d aily BY MOUTH. Take 1 tablet by natalie th once daily. Multivitamin With Folic Acid (Thera) 1 TABLET tablet (20 sources) Start: 08-30-2014 take 1 tablet by mouth once daily Multivitamin With Folic Acid (Thera) 1 TABLET tablet Active 1 TABLET PO DAILY August 30, 2014 10:14am Start: 08-30-2014 take 1 tablet by natalie th once daily Multivitamin With Folic Acid (Thera) 1 TABLET tablet Active 1 {tbl} PO DAILY August 30, 2014 12:00am Start: 08-30-2014 take 1 tablet by natalie th once daily Multivitamin With Folic Acid (Thera) 1 TABLET tablet Active 1 TABLET PO DAILY August 29, 2014 11:00pm Start: 08-30-2014 take 1 tablet by natalie th once daily Multivitamin With Folic Acid (Thera) 1 TABLET tablet Active 1 TABLET PO DAILY August 30, 2014 12:00am nitrofurantoin, macrocrystals 100 mg oral capsule (13 sources) Nitrofuran Antibacterial Start: 08-20-2021 take 1 capsule by mouth twice daily Nitrofurantoin Macrocrystal (Macrodantin) 100 mg Capsule Active 100 MG PO TWICE A DAY August 19, 2021 11:00pm nitrofurantoin, macrocrystals 25 mg / nitrofurantoin, monohydrate 75 mg oral capsule (19 sources) Nitrofuran Antibacterial Start: 08-31-2021 End: 09-20-2021 take 1 capsule by mouth twice daily nitrofurantoin monohydrate and macrocrystal (MACROBID) 100 mg capsule Take 1 capsule by mouth twice daily for 10 days. 20 capsule 0 09/10/2021 09/20/2021 Active Start: 08-15-2021 End: 08-25-2021 take 1 capsule by mouth twice daily nitrofurantoin monohydrate and macrocrystal (MACROBID) 100 mg capsule Take 1 capsule by mouth twice daily for 10 days. 20 capsule 0 08/15/2021 08/25/2021 Active Start: 06-17-2021 End: 06-22-2021 take 1 capsule by mouth twice daily at mealtime nitrofurantoin monohydrate and macrocrystal (MACROBID) 100 mg capsule Take 1 capsule by mouth twice daily with meals for 5 days. 10 capsule 0 06/17/2021 06/22/2021 Active Start: 06-01-2021 End: 06-08-2021 take 1 capsule by mouth twice daily at mealtime nitrofurantoin monohydrate and macrocrystal (MACROBID) 100 mg capsule Take 1 capsule by mouth twice daily with meals for 7 days. 14 capsule 0 06/01/2021 06/08/2021 Active Comment on above: Take 1 capsule by mo ut twice daily with meals for 7 days. Take 1 capsule by mo ut twice daily with meals for 5 days. Take 1 capsule by mo ut twice daily for 5 days. Take 1 capsule by mo ut twice daily for 10 days. norethindrone acetate 5 mg oral tablet (11 sources) Start: 08-27-19 take 1 tablet by mouth twice daily Norethindrone Acetate (Aygestin) 5 mg tablet Active 5 MG PO TWICE A DAY August 25, 2021 11:00pm omeprazole 20 mg delayed release oral capsule (20 sources) Proton Pump Inhibitor Start: 08-21-19 22 take 2 capsules by mouth once daily Omeprazole Magnesium 20 mg Capsule,Delayed Release(Dr/Ec) Active 40 mg PO DAILY August 20, 2021 12:00am Start: 08-20-2021 take 40 mg by mouth once daily Omeprazole Magnesium Active 40 MG PO DAILY August 20, 2021 12:00am Start: 2021 End: 10-10-2021 take 1 capsule by mouth once daily in the evening omeprazole (PRILOSEC) 40 mg capsule Take 1 capsule by mouth once daily. 90 capsule 2021 3:09 PM EDT 2021 Active Start: 03-14-2021 take 2 capsules by m outh once daily omeprazole (PRILOSEC) 20 mg capsule Take 2 capsules by mouth once daily. 180 capsule 3 03/14/2021 Active Start: 01-09-2021 End: 02-09-2021 take 2 capsules by mouth once daily omeprazole (PRILOSEC) 20 mg capsule Take 2 capsules by mouth once daily. 60 capsule 0 01/09/2021 02/09/2021 Discontinued Comment on above: Take 2 capsules by m outh once daily. Take 1 capsule by mo uth once daily. polyethylene glycol 3350 22406 mg powder for oral solution (10 sources) Osmotic Laxative Start: take 17 g by mouth once daily as needed Polyethylene Glycol 3350 17 gram powder in packet Active 17 g PO daily as needed August 13, 2024 12:00am End: 11-14-2023 polyethylene glycol 3350 ([place] RALAX) 17 gram/dose powder Take 17 g by mouth once daily as needed for constipation. Dissolve dose in 4 - 8 ounces of liquid and take as directed. 11/14/2023 Discontinued predniSONE 5 mg oral tablet (20 sources) Start: 08-27-2024 take 3 tablets by mouth once daily predniSONE (DELTASONE) 5 mg tablet Take 3 tablets by mouth once daily. 08/27/2024 Active Start: 08-18-2024 take 2 tablets by mo uth once daily Prednisone 20 mg tablet Active 40 mg PO daily August 18, 2024 12:00am Start: 08-13-2024 End: 08-27-2024 Prednisone 10 mg tablet Disc ontinued mg PO August 13, 2024 12:00am August 18, 2024 2:41pm Start: 08-13-2024 End: 08-18-2024 Prednisone 5 mg tablet Disco ntinued mg PO August 13, 2024 12:00am August 18, 2024 2:41pm Start: 01-29-2023 End: 08-19-2023 predniSONE (DELTASONE) 20 mg tablet 40 mg x 3 days, 20 mg x 3 days, 10mg x 3 days, 5 mg x 3 days 0 01/29/2023 08/19/2023 Discontinued Start: 01-15-2021 End: 02-11-2023 take 1 tablet by mouth once daily predniSONE (DELTASONE) 5 mg tablet Take 1 tablet by mouth once daily. 30 tablet 5 08/08/2021 03/06/2022 Discontinued take 9 mg by mouth once daily [place] EDNISONE ORAL Take 9 mg by mouth once daily. Active take 9 mg by mouth once daily [place] EDNISONE ORAL Take 9 mg by mouth once daily. 0 Active Comment on above: Take 1 tablet by natalie th once daily. Take 5 mg by mouth o nce daily. PRN 40 mg x 3 days, 20 m g x 3 days, 10mg x 3 days, 5 mg x 3 days senna/docusate sodium (SENNA-C PLUS ORAL) (20 sources) take 8.6 mg by mouth once daily senna/docusate sodium (SENNA-C PLUS ORAL) Take 8.6 mg by mouth once daily. Active take 8.6 mg by mouth once daily senna/docusate sodium (SENNA-C PLUS ORAL) Take 8.6 mg by mouth once daily. 0 Active Comment on above: Take 8.6 mg by mouth once daily. triamcinolone acetonide 0.055 mg/actuat metered dose nasal spray (20 sources) Corticosteroid Start: 03-26-2018 Triamcinolone Acetonide (Nasacort Aq Nasal [place]) 1 SPRAY Nasal.Sry Active 2 SPRAY NASAL DAILY March 26, 2018 11:19am Start: 03-26-2018 Triamcinolone Acetonide (Nasacort Aq Nasal [place]) 1 SPRAY aerosol,spray Active 2 SPRAY NASAL NEEDED March 26, 2018 1:00am Start: 03-05-2016 End: 08-13-2024 Triamcinolone Acetonide (Ángel acort Aq Nasal [place]) 1 SPRAY aerosol,spray Discontinued 2 NMA NASAL NEEDED as needed for Nasal Congestion March 26, 2018 1:00am August 13, 2024 2:29pm Comment on above: Use 2 Sprays in the nose once daily. Turmeric Root Extract (16 sources) Start: 03-26-2018 take 580 mg by mouth once daily Turmeric Root Extract Active 580 MG PO DAILY March 26, 2018 11:19am Start: 03-26-2018 take 500 mg by mouth once indio y Turmeric Root Extract Active 500 MG PO DAILY March 26, 2018 11:19am Start: 03-26-2018 take 580 mg by mouth once indio y Turmeric Root Extract Active 580 MG PO DAILY March 26, 2018 12:00am Start: 03-26-2018 take 580 mg by mouth once indio y Turmeric Root Extract Active 580 MG PO DAILY March 26, 2018 1:00am Zinc (20 sources) Start: 08-20-2021 take 50 mg by mouth once daily Zinc Active 50 MG PO DAILY August 20, 2021 8:15am Start: 08-20-2021 take 50 mg by mouth once daily Zinc Active 50 MG PO DAILY August 19, 2021 11:00pm Start: 08-20-2021 take 50 mg by mouth once daily Zinc Active 50 MG PO DAILY August 20, 2021 12:00am End: 2021 take 1 tablet by mouth once daily Zinc 50 mg tab Take 50 mg by mouth once daily. 2021 Discontinued take 1 tablet by natalie th once daily Zinc 50 mg tab Take 50 mg by mouth once daily. 0 Suspended Zinc 50 mg tab T [place] by mouth once daily. 0 Active Comment on above: Take by mouth once d aily. Take 50 mg by mouth once daily. Completed/Discontinued Medications Medication Drug Class(es) Dates Sig (Normalized) Sig (Original) acetaminophen 500 mg oral tablet (20 sources) Start: 10-09-2023 End: 10-09-2023 acetaminophen 1,000 mg tab(s) (TYLENOL) Start: 08-28-2023 End: 08-28-2023 acetaminophen 1,000 mg tab(s ) (TYLENOL) Start: 08-20-2021 take 2 tablets by mo uth every six hours as needed for pain Acetaminophen (Tylenol) 325 mg Tablet Active 650 mg PO EVERY 6 HOURS as needed for Pain August 20, 2021 12:00am Start: 08-30-2014 take 1000 mg by mout h every four hours as needed Acetaminophen Active 1000 MG PO EVERY 4 HOURS NEEDED August 30, 2014 10:14am Start: 05-17-2004 End: 07-09-2021 TYLENOL EX-STR 500 MG CAPLET Take two(2) tablets every four(4) to six(6) hours as needed. 0 05/17/2004 07/09/2021 Discontinued take 2 capsules by m outh every eight hours as needed Acetaminophen 500 mg cap Take 1,000 mg by mouth three times a day as needed. Active Comment on above: Take two(2) tablets every four(4) to six(6) hours as needed. Take 1,000 mg by natalie as needed. 0.4 ml adalimumab 100 mg/ml auto-injector (11 sources) Tumor Necrosis Factor Nahun Start: End: adalimumab (HUMIRA,CF, PEN) 40 mg/0.4 mL pen kit Inject 40 mg (1 pen) subcutaneously every 2 weeks. 2 Each 5 07/04/2023 11/14/2023 Discontinued Comment on above: Inject 40 mg (1 pen) subcutaneously every 2 weeks. [id number] 200 actuat albuterol 0.09 mg/actuat metered dose inhaler (8 sources) beta2-Adrenergic Agonist Start: take 2 puff(s) by inhalation every six hours as needed for wheezing albuterol HFA (PROVENTIL HFA, VENTOLIN HFA) 90 mcg/actuation inhaler Inhale 2 Puffs as instructed every 6 hours as needed for wheezing/shortness of breath. 1 Inhaler 0 05/17/2021 Active Comment on above: Inhale 2 Puffs as in structed every 6 hours as needed for wheezing/shortness of breath. apixaban 5 mg oral tablet (20 sources) Factor Xa Inhibitor Start: 023 End: take 1 tablet by mouth twice daily Apixaban (Eliquis) 5 mg tablet Discontinued 5 mg PO TWICE A DAY September 18, 2022 12:00am August 13, 2024 2:28pm Comment on above: Take 1 tablet by natalie twice daily. atorvastatin 10 mg oral tablet (5 sources) HMG-CoA Reductase Inhibitor Start: 019 End: take 1 tablet by mouth once daily atorvastatin (LIPITOR) 10 mg tablet TAKE 1 TABLET BY MOUTH EVERY DAY 90 tablet 3 03/03/2020 01/30/2021 Discontinued betamethasone 3 mg/ml / betamethasone acetate 3 mg/ml injectable suspension (5 sources) Corticosteroid Start: End: betamethasone acetate-betamethason e sodium phosphate 6 mg injection (CELESTONE) Start: 06-18-2023 End: 06-18-2023 betamethasone acetate-betame thasone sodium phosphate 6 mg injection (CELESTONE) Start: 11-25-2022 End: 11-25-2022 betamethasone acetate-betame thasone sodium phosphate 6 mg injection (CELESTONE) Start: 01-21-2022 End: 01-21-2022 betamethasone acetate-betame thasone sodium phosphate 6 mg injection (CELESTONE) Calcium Carb And Citrat-Mag Ox 200 mg calcium- 50 mg Tablet (11 sources) Start: 08-20-2021 End: 08-13-2024 Calcium Carb And Citrat-Mag Ox 200 mg calcium- 50 mg Tablet Discontinued 1 {tbl} PO DAILY August 20, 2021 12:00am August 13, 2024 2:28pm Start: 08-20-2021 Calcium Carb A nd Citrat-Mag Ox 200 mg calcium- 50 mg Tablet Active 1 {tbl} PO DAILY August 20, 2021 12:00am ciprofloxacin 500 mg oral tablet (3 sources) Quinolone Antimicrobial Start: 08-13-2021 End: 08-20-2021 take 1 tablet by mouth every twelve hours ciprofloxacin HCl (CIPRO) 500 mg tablet Take 1 tablet by mouth every 12 hours for 7 days. 14 tablet 0 08/13/2021 08/15/2021 Discontinued Comment on above: Take 1 tablet by [facility] [place] every 12 hours for 7 days. diphenhydrAMINE hydrochloride 25 mg oral capsule (5 sources) Histamine-1 Receptor Antagonist Start: 01-28-2024 End: 01-28-2024 take 1 dose by mouth once 25 mg, ORAL, ONCE, 1 dose, On Fri01/28/24 at 1100 Start: 12-04-2023 End: 12-04-2023 take 1 dose by mouth once 25 mg, ORAL, ONCE, 1 dose, O n Shamika 12/04/23 at 0830 Start: 10-09-2023 End: 10-09-2023 diphenhydrAMINE 25 mg capsul e (BENADRYL) Start: 09-12-2023 End: 09-12-2023 diphenhydrAMINE 25 mg capsul e (BENADRYL) Start: 08-28-2023 End: 08-28-2023 diphenhydrAMINE 25 mg capsul e (BENADRYL) docusate sodium 100 mg oral capsule (20 sources) Start: 01-15-2016 End: 03-06-2022 take 1 capsule by mouth every twelve hours as needed docusate sodium (COLACE) 100 mg capsule Take 1 capsule by mouth twice daily as needed for Constipation. 60 capsule 1 01/15/2016 03/06/2022 Discontinued Start: 08-30-2014 take 1 capsule by mo uth once daily Docusate Sodium (Colace) 100 MG capsule Active 100 MG PO DAILY August 29, 2014 11:00pm Comment on above: Take 1 capsule by mo uth twice daily as needed for Constipation. estradiol 0.1 mg/ml vaginal cream (20 sources) Estrogen Start: 03-21-2023 End: 08-13-2024 Estradiol (Estrace) 0.01 % (0.1 mg/gram) cream Discontinued 1 g VAGINAL EVERY OTHER DAY as needed for DRYNESS 42.5 April 30, 2024 3:19pm August 13, 2024 2:28pm Start: 01-02-2022 End: 08-27-2022 estradiol (ESTRACE) 0.01 % ( 0.1 mg/gram) vaginal cream Indications: Recurrent UTI , Vaginal atrophy Apply a pea sized amount to the vaginal opening every 3 days 42.5 g 2 2022 08/27/2022 Discontinued Start: 03-14-2021 End: 07-03-2021 estradiol (ESTRACE) 0.01 % ( 0.1 mg/gram) vaginal cream 1 gm every other day. 30 g 5 03/14/2021 07/03/2021 Discontinued (Discontinued by Patient) Start: 08-11-2019 End: 02-26-2021 estradiol (ESTRACE) 0.01 % ( 0.1 mg/gram) vaginal cream 1 gm every other day. 30 g 5 09/26/2020 02/26/2021 Discontinued Start: 08-30-2014 End: 03-21-2023 estradiol (ESTRACE) 0.01 % ( 0.1 mg/gram) vaginal cream as needed. PRN FOR DRYNESS 03/21/2023 Active End: 01-02-2022 estradiol (ESTRACE VAGINAL V AGINAL) Use vaginally. uses every 3 days 0 01/02/2022 Discontinued estradiol (ESTRA CE VAGINAL VAGINAL) Use vaginally. uses every 3 days 0 Active Comment on above: 1 gm every other day . Use vaginally. uses every 3 days Apply a pea sized am ount to the vaginal opening every 3 days as needed. PRN FOR D RYNESS famotidine 40 mg oral tablet (1 source) Histamine-2 Receptor Antagonist Start: 1 End: 1 take 1 tablet by mouth once daily famotidine (PEPCID) 40 mg tablet Take 1 tablet by mouth once daily. 30 tablet 05/05/2020 07/21/2020 Discontinued ferrous sulfate 325 mg oral tablet (1 source) Start: 1 End: 1 take 1 tablet by mouth twice daily ferrous sulfate 325 mg (65 mg iron) tablet Take 1 tablet by mouth twice daily. 60 tablet 1 01/14/2021 02/28/2021 Comment on above: [facility] f[facility] acid 1 mg oral tablet (5 sources) Start: 0 End: 1 take 3 tablets by mouth once daily folic acid 1 mg tablet Take 3 tablets by mouth once daily. 270 tablet 3 10/27/2020 01/30/2021 Discontinued Start: 08-30-2014 take 1 mg by mouth once daily Folic Acid Active 1 MG PO DAILY@0800 August 30, 2014 10:14am glucosamine/msm/chondroitin A ([id number] ORAL) (11 sources) End: 07-09-2021 take 1 capsule by mouth once daily glucosamine/msm/chondroitin A ([id number] ORAL) Take 1 capsule by mouth once daily. 07/09/2021 Discontinued (Erroneous entry) End: 07-09-2021 take 1 capsule by mouth once daily glucosamine/msm/chondroitin A ([id number] ORAL) Take 1 capsule by mouth once daily. 0 07/09/2021 Discontinued (Erroneous entry) take 1 capsule by mo [facility] once daily glucosamine/msm/chondroitin A ([id number] ORAL) Take 1 capsule by mouth once daily. 0 Active Comment on above: Take 1 capsule by [facility] once daily. Handicapped placcard (20 sources) Start: 04-22-2022 Handicapped placcard Active 0 .ROUTE .COMPLEX 1 April 22, 2022 1:00am 1 each; 5 years. Expires 03/22/27. Start: 04-22-[address] Active 0 .ROUTE .COMPLEX April 22, 2022 12:00am 1 each; 5 years. Expires 03/22/27. heparin (11 sources) Unfractionated Heparin, Anti-coagulant Start: 05-19-2018 End: 07-09-2021 heparin 100 unit/mL injection Access implanted vascular access device (IVAD) as needed for flush, blood draw or treatment. Before de-accessing port, flush with 10-20ml normal saline and follow with 5 mL heparin (100 units/mL) (if no heparin allergy). De-access port on treatment completion. 5 mL 100 05/19/2018 07/09/2021 Discontinued Start: 05-19-2018 heparin 100 un it/mL injection Access implanted vascular access device (IVAD) as needed for flush, blood draw or treatment. Before de-accessing port, flush with 10-20ml normal saline and follow with 5 mL heparin (100 units/mL) (if no heparin allergy). De-access port on treatment completion. 5 mL 100 05/19/2018 Active Comment on above: Access implanted vas cular access device (IVAD) as needed for flush, blood draw or treatment. Before de-accessing port, flush with 10-20ml normal saline and follow with 5 mL heparin (100 units/mL) (if no heparin allergy). De-access port on treatment completion. hydroxychloroquine sulfate 200 mg oral tablet (11 sources) Antimalarial, Antirheumatic Agent Start: 2023 End: 2023 take 1 tablet by mouth twice daily hydrOXYchloroQUINE (PLAQUENIL) 200 mg tablet Take 1 tablet by mouth two times a day. 06/03/2023 11/14/2023 Discontinued Comment on above: Take 1 tablet by [facility] [place] two times a day. inFLIXimab-abda 200 mg in NaCl 0.9% 250 mL (RENFLEXIS) (1 source) Start: 2023 End: 2023 inFLIXimab-abda 200 mg in NaCl 0.9% 250 mL (RENFLEXIS) inFLIXimab-abda 243.6 mg in NaCl 0.9% 250 mL (RENFLEXIS) (4 sources) Start: 2023 End: 2023 243.6 mg (3 mg/kg/dose 81.2 kg Treatment plan Recorded weight), INTRAVENOUS, at 83.33-250 mL/hr, Administer over 1-3 Hours, ONCE, 1 dose, On Fri01/28/24 at 1100, TOTAL VOLUME = 250 mL. exp 1100 01/29/24 (room temp) Administer with 0.2 micron filter. Start: 12-04-2023 End: 12-04-2023 243.6 mg (3 mg/kg/dose 81.2 kg Treatment plan Recorded weight), INTRAVENOUS, at 83.33-250 mL/hr, Administer over 1-3 Hours, ONCE, 1 dose, On Fri12/04/23 at 0830, TOTAL VOLUME = 250 mL. EXP: Administer with 0.2 micron filter. Start: 10-09-2023 End: 10-09-2023 inFLIXimab-abda 243.6 mg in NaCl 0.9% 250 mL (RENFLEXIS) Start: 09-12-2023 End: 09-12-2023 inFLIXimab-abda 243.6 mg in NaCl 0.9% 250 mL (RENFLEXIS) 10 ml iron sucrose 20 mg/ml injection (2 sources) Parenteral Iron Replacement Start: 03-12-2024 End: 03-12-2024 200 mg, INTRAVENOUS, ONCE, 1 dose, On Fri03/12/24 at 1430, Please conduct a 30 minute post dose observation. Start: 02-27-2024 End: 02-27-2024 200 mg, INTRAVENOUS, ONCE, 1 dose, On Fri02/27/24 at 1500, Please conduct a 30 minute post dose observation. levoFLOXacin 750 mg oral tablet (1 source) Quinolone Antimicrobial Start: 08-15-2021 End: 08-15-2021 take 1 tablet by mouth twice daily levoFLOXacin (LEVAQUIN) 750 mg tablet Take 1 tablet by mouth twice daily for 7 days. 14 tablet 0 08/15/2021 08/15/2021 Discontinued Comment on above: Take 1 tablet by natalie twice daily for 7 days. 10 ml lidocaine hydrochloride 10 mg/ml injection (5 sources) Antiarrhythmic, Amide Local Anesthetic Start: 06-30-2023 End: 06-30-2023 lidocaine (PF) 10 mg/mL (1 %) 5 mL injection (XYLOCAINE) Start: 06-18-2023 End: 06-18-2023 lidocaine (PF) 10 mg/mL (1 % ) 4 mL injection (XYLOCAINE) Start: 11-25-2022 End: 11-25-2022 lidocaine (PF) 10 mg/mL (1 % ) 5 mL injection (XYLOCAINE) Start: 01-21-2022 End: 01-21-2022 lidocaine (PF) 10 mg/mL (1 % ) 5 mL injection (XYLOCAINE) MEDICAL SUPPLY (20 sources) Start: 04-11-2021 End: 03-06-2022 MEDICAL SUPPLY Indications: Other fatigue Zippered compression stockings.- 1 pair. 2 Each 1 04/11/2021 03/06/2022 Discontinued Start: 04-11-2021 MEDICAL SUPPLY Indications: Other fatigue Zippered compression stockings.- 1 pair. 2 Each 1 04/11/2021 Active Comment on above: Zippered compression stockings.- 1 pair. methotrexate 2.5 mg oral tablet (5 sources) Folate Analog Metabolic Inhibitor Start: End: take 7 tablets by mouth every week methotrexate 2.5 mg tablet Indications: Rheumatoid arthritis of multiple sites with negative rheumatoid factor (HCC) TAKE 7 TABLETS BY MOUTH ONE TIME A WEEK. 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 24 tablet 3 03/03/2020 07/21/2020 Discontinued Start: 08-30-2014 take 20 mg by mouth every week Methotrexate Sodium Active 20 MG PO Q7D August 30, 2014 10:14am miSOPROStol 0.2 mg oral tablet (3 sources) Prostaglandin E1 Analog Start: 08-15-2021 End: 08-16-2021 miSOPROStol (CYTOTEC) 200 mcg tablet Use 2 tablets vaginally as directed for [address] 2 tablets vaginally qhs before the procedure 2 tablet 0 08/15/2021 08/16/2021 Start: 05-02-2020 End: 07-21-2020 miSOPROStol (CYTOTEC) 200 mc g tablet Insert 2 tablets vaginally night before procedure and then 2 tablets vaginally the morning of procedure 4 tablet 05/02/2020 07/21/2020 Discontinued Comment on above: Use 2 tablets vagina lly as directed for [address] 2 tablets vaginally qhs before the procedure Nirmatrelvir-Ritonavi r (20 sources) Start: 10-18-2021 End: 08-13-2024 Nirmatrelvir-Ritonavir (Paxlovid (Eua)) 300 mg (150 mg x 2)-100 mg tablets,dose pack Discontinued 0 PO .COMPLEX October 18, 2021 12:00am August 13, 2024 2:29pm take TWO 150 mg tablets of nirmatrelvir with ONE 100 mg tablet of ritonavir twice daily for 5 days Start: 10-18-2021 Nirmatrelvir-R itonavir (Paxlovid (Eua)) 300 mg (150 mg x 2)- 100 mg tablets,dose pack Active 0 PO .COMPLEX October 17, 2021 11:00pm take TWO 150 mg tablets of nirmatrelvir with ONE 100 mg tablet of ritonavir twice daily for 5 days Start: 10-18-2021 Nirmatrelvir-R itonavir (Paxlovid (Eua)) 300 mg (150 mg x 2)- 100 mg tablets,dose pack Active 0 PO .COMPLEX October 18, 2021 12:00am take TWO 150 mg tablets of nirmatrelvir with ONE 100 mg tablet of ritonavir twice daily for 5 days perflutren lipid microsphere s 1.3 mL in NaCl (PF) 0.9% 10 mL injection ([employer]) (10 sources) Start: 09-06-2020 End: 07-09-2021 perflutren lipid microsphere s 1.3 mL in NaCl (PF) 0.9% 10 mL injection (DEFINITY) Start: 09-06-2020 End: 12-06-2021 perflutren lipid microsphere s 1.3 mL in NaCl (PF) 0.9% 10 mL injection (DEFINITY) phenazopyridine hydrochloride 200 mg oral tablet (12 sources) Start: 08-13-2021 End: 08-18-2021 take 1 tablet by mouth every eight hours as needed phenazopyridine (PYRIDIUM, GERIDIUM) 200 mg tablet Take 1 tablet by mouth three times daily as needed for up to 5 days. 15 tablet 0 08/13/2021 08/18/2021 Start: 06-17-2021 take 2 tablets by mo [facility] every eight hours as needed phenazopyridine (PYRIDIUM) 100 mg tablet Take 2 tablets by mouth three times daily as needed. 6 tablet 0 06/17/2021 Active Comment on above: Take 2 tablets by mo [facility] three times daily as needed. Take 1 tablet by [facility] [place] three times daily as needed for up to 5 days. 125 ml sodium chloride 9 mg/ml prefilled syringe (20 sources) Start: 09-06-2020 End: 12-06-2021 sodium chloride 0.9 % (flush) 10 mL (BD POSIFLUSH) Start: 05-19-2018 End: 07-09-2021 0.9 % sodium chloride (0.9% NACL) Access implanted vascular access device (IVAD) as needed for flush, blood draw or treatment. Flush IVAD with 10-20 mL NS every 4 weeks and PRN when IVAD not in use. 2 Syringe 50 05/19/2018 07/09/2021 Discontinued Start: 05-19-2018 0.9 % sodium c hloride (0.9% NACL) Access implanted vascular access device (IVAD) as needed for flush, blood draw or treatment. Flush IVAD with 10-20 mL NS every 4 weeks and PRN when IVAD not in use. 2 Syringe 50 05/19/2018 Active Comment on above: Access implanted vas cular access device (IVAD) as needed for flush, blood draw or treatment. Flush IVAD with 10-20 mL NS every 4 weeks and PRN when IVAD not in use. tamoxifen 20 mg oral tablet (4 sources) Estrogen Agonist/Antagonist Start: 9 End: take 1 tablet by mouth once daily tamoxifen (NOLVADEX) 20 mg tablet Take 1 tablet (20 mg) by mouth once daily. 90 tablet 3 08/11/2019 09/19/2020 Discontinued traMADol hydrochloride 50 mg oral tablet (20 sources) Opioid Agonist Start: 5 End: 5 take 1 tablet by mouth four times daily Tramadol 50 mg tablet Discontinued 50 mg PO .qid 120 30 July 17, 2024 3:13pm August 15, 2024 12:00am July 22, 2024 9:58am Start: 03-28-2024 End: 06-18-2024 take 1 tablet by mouth four times daily Tramadol 50 mg tablet Discontinued 50 mg PO .qid 120 30 May 19, 2024 1:34pm June 17, 2024 12:00am June 18, 2024 12:13am Start: 08-30-2014 take 50 mg by mouth every six hours as needed Tramadol Active 50 MG PO EVERY 6 HOURS NEEDED August 30, 2014 10:14am Comment on above: Take 50 mg by mouth every 6 hours as needed for pain. TURMERIC ROOT EXTRACT ORAL (11 sources) End: 2021 take 580 mg by mouth once daily TURMERIC ROOT EXTRACT ORAL Take 580 mg by mouth once daily. 2021 Discontinued take 580 mg by mouth once daily TURMERIC ROOT EXTRACT ORAL Take 580 mg by mouth once daily. 0 Suspended take 580 mg by mouth once daily TURMERIC ROOT EXTRACT ORAL Take 580 mg by mouth once daily. 0 Active Comment on above: Take 580 mg by mouth once daily. warfarin sodium 1 mg oral tablet (20 sources) Vitamin K Antagonist Start: 02-02-2020 End: 03-06-2022 warfarin (COUMADIN) 1 mg tablet Indications: Atrial fibrillation, unspecified type (HCC) 2 mg every Tue; 1 mg all other days 90 tablet 1 10/09/2020 03/02/2021 Discontinued Start: 08-30-2014 Warfarin (Coum mary) 1 MG tablet Active 1.5 MG PO August 30, 2014 10:14am Start: 08-30-2014 Warfarin (Coum mary) 1 MG tablet Active 2 MG PO August 29, 2014 11:00pm Start: 08-30-2014 Warfarin (Coum mray (Pbkc)) 3 MG tablet Active 1 MG PO SUMOWETHSA August 29, 2014 11:00pm Comment on above: 2 mg every Tue; 1 mg all other days 100 ml zoledronic acid 0.05 mg/ml injection (1 source) Bisphosphonate Start: 12-11-2023 End: 12-11-2023 5 mg, INTRAVENOUS, at 200 mL/hr, Administer over 30 Minutes, ONCE, 1 dose, On [place] 12/11/23 at 0900, Hazardous Potential Reproductive Risk Drug: Use appropriate PPE. Problems Active Problems Problem Classification Problem Date Documented Da te Episodic/Chronic Cardiac dysrhythmias (20 sources) Paroxysmal atrial fibrillation; Translations: [Paroxysmal atrial fibrillation] Onset: 0 Resolved: 2 04-09-2021 Chronic Cataract (1 source) Age-related nuclear cataract, bilateral; Translations: [Age-related nuclear cataract, bilateral] Onset: 4 Chronic Coagulation and hemorrhagic disorders (20 sources) Platelet count below reference range; Translations: [Thrombocytopenia, unspecified] Onset: 3 02-24-2023 Chronic Complications of surgical procedures or medical care (20 sources) Postmastectomy lymphedema syndrome; Translations: [Postmastectomy lymphedema syndrome] Onset: 8 09-29-2007 Chronic Complications of surgical procedures or medical care (20 sources) Vaginal bleeding; Translations: [Postprocedural hemorrhage of a genitourinary system organ or structure following a genitourinary system procedure] 09-03-2021 Episodic Coronary atherosclerosis and other heart disease (2 sources) Atherosclerotic heart disease of [place] coronary artery without angina pectoris; Translations: [Atherosclerotic heart disease of [place] coronary artery without angina pectoris] Onset: 5 Chronic Deficiency and other anemia (20 sources) Iron deficiency anemia due to blood loss; Translations: [Iron deficiency anemia secondary to blood loss (chronic)] Onset: 3 Chronic Deficiency and other anemia (1 source) Iron deficiency anemia secondary to blood loss (chronic); Translations: [Iron deficiency anemia due to chronic blood loss] Onset: 3 Chronic Deficiency and other anemia (2 sources) Anemia, unspecified; Translations: [Anemia, unspecified] Onset: 4 Episodic Diabetes mellitus without complication (1 source) Hyperglycemia; Translations: [Hyperglycemia, unspecified] Episodic Disorders of lipid metabolism (20 sources) Mixed hyperlipidemia; Translations: [Mixed hyperlipidemia] Onset: 6 Resolved: 2 04-22-2021 Chronic Diverticulosis and diverticulitis (20 sources) Diverticulosis of large intestine; Translations: [Diverticulosis of large intestine without perforation or abscess without bleeding] Onset: 3 Resolved: 2 03-12-2021 Chronic E Codes: Fall (20 sources) Fall; Translations: [Unspecified fall, initial encounter] 08-08-2019 Episodic Essential hypertension (20 sources) Essential hypertension; Translations: [Essential (primary) hypertension] Onset: 7 04-22-2021 Chronic Fracture of upper limb (6 sources) Unspecified fracture of lower end of left ulna, initial encounter for closed fracture; Translations: [Unspecified fracture of left forearm, initial encounter for closed fracture] Onset: 5 08-13-2024 Episodic Genitourinary symptoms and ill-defined conditions (20 sources) Mixed urinary incontinence; Translations: [Mixed incontinence] Onset: 1 Resolved: 5 Chronic Heart valve disorders (20 sources) Rheumatic mitral valve disease, unspecified; Translations: [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 11-23-2004 Chronic Malaise and fatigue (2 sources) Chronic fatigue, unspecified; Translations: [Chronic fatigue, unspecified] Onset: 5 Chronic Malaise and fatigue (20 sources) Fatigue; Translations: [Other fatigue] 10-26-2021 Episodic Menopausal disorders (20 sources) Atrophy of vagina; Translations: [Postmenopausal atrophic vaginitis] Onset: 8 Resolved: 5 07-27-2015 Chronic Mood disorders (20 sources) Mild depression; 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] Onset: 1 10-09-2020 Chronic Nonspecific chest pain (1 source) Chest pain; Translations: [Chest pain, unspecified] Episodic Nutritional deficiencies (2 sources) Vitamin D deficiency, unspecified; Translations: [Vitamin D deficiency, unspecified] Onset: 5 Chronic Osteoarthritis (20 sources) Bilateral shoulder osteoarthritis; Translations: [Primary osteoarthritis, right shoulder] Onset: 1 07-25-2020 Chronic Osteoporosis (20 sources) Senile osteoporosis; Translations: [Age-related osteoporosis without current pathological fracture] Onset: 4 11-14-2023 Chronic Other aftercare (20 sources) Anticoagulant effect; Translations: [USP (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 anticoagulants] 08-08-2019 Episodic Other aftercare (2 sources) Device in situ; Translations: [Encounter for adjustment and management of vascular access device] 09-24-2022 Episodic Other aftercare (4 sources) Drug therapy finding; Translations: [intermediate frame tender (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 systemic steroids] 06-06-2023 Episodic Other bone disease and musculoskeletal deformities (1 source) Osteopenia; Translations: [Other specified disorders of bone density and structure, multiple sites] 07-04-2023 Episodic Other circulatory disease (20 sources) Device [...] 2 07-06-2021 Chronic Other female genital disorders (20 sources) Abnormal vaginal bleeding; Translations: [Abnormal uterine and vaginal bleeding, unspecified] 09-03-2021 Chronic Other female genital disorders (1 source) Abnormal uterine bleeding; Translations: [Abnormal uterine and vaginal bleeding, unspecified] Chronic Other female genital disorders (3 sources) Old laceration of cervix; Translations: [Old laceration of cervix uteri] Episodic Other gastrointestinal disorders (20 sources) Malabsorption - iron; Translations: [Intestinal malabsorption, unspecified] Onset: 3 Chronic Other gastrointestinal disorders (20 sources) History of diverticulitis; Translations: [Personal history of other diseases of the digestive system] 07-19-2015 Episodic Other gastrointestinal disorders (20 sources) H/O: gallstones; Translations: [Personal history of other diseases of the digestive system] 07-11-2021 Episodic Other gastrointestinal disorders (20 sources) H/O: liver disease; Translations: [Personal history of other diseases of the digestive system] 07-11-2021 Episodic Other gastrointestinal disorders (5 sources) Personal history of other diseases of the digestive system; Translations: [Personal history of other diseases of digestive system] Episodic Other gastrointestinal disorders (20 sources) History of gastrointestinal bleed; Translations: [Personal history of other diseases of the digestive system] 01-05-2022 Episodic Other gastrointestinal disorders (2 sources) Abdominal bloating; Translations: [Abdominal distension (gaseous)] 02-24-2024 Episodic Other gastrointestinal disorders (2 sources) Occult blood in stools; Translations: [Other fecal abnormalities] 02-24-2024 Episodic Other gastrointestinal disorders (1 source) Diarrhea, unspecified; Translations: [Diarrhea, unspecified] Onset: 5 Episodic Other infections; including parasitic (3 sources) H/O: [...] liver disease] Onset: 1 02-09-2021 Chronic Other liver diseases (4 sources) Hepatic sclerosis; Translations: [Hepatic sclerosis] 08-13-2024 Chronic Other lower respiratory disease (4 sources) Dyspnea; Translations: [Shortness of breath] Episodic Other lower respiratory disease (2 sources) Rib pain; Translations: [Pleurodynia] Episodic Other lower respiratory disease (1 source) Cough; Translations: [Cough] 05-17-2021 Episodic Other lower respiratory disease (1 source) Chronic cough; Translations: [Chronic cough] 05-05-2020 Episodic Other nervous system disorders (20 sources) Neuropathy; Translations: [Polyneuropathy, unspecified] Onset: 0 04-02-2019 Chronic Other non-traumatic joint disorders (2 sources) Pain in right knee; Translations: [Pain in joint, lower leg] Episodic Other non-traumatic joint disorders (2 sources) Pain of right wrist; Translations: [Pain in right wrist] 11-25-2022 Episodic Other non-traumatic joint disorders (3 sources) Hip pain; Translations: [Pain in right hip] 02-24-2024 Episodic Other screening for suspected conditions (not mental disorders or infectious disease) (20 sources) Endometrium thickened; Translations: [Abnormal findings on diagnostic imaging of other specified body structures] Onset: 1 01-14-2021 Chronic Residual codes; unclassified (20 sources) Sleep apnea; Translations: [Sleep apnea, unspecified] Onset: 7 03-12-2021 Chronic Residual codes; unclassified (3 sources) Obstructive sleep apnea syndrome; Translations: [Obstructive sleep apnea (adult) (pediatric)] Chronic Residual codes; unclassified (1 source) History of clinical finding in subject; Translations: [Personal history of other medical treatment] Episodic Residual codes; unclassified (1 source) Family history of diabetes mellitus; Translations: [Family history of diabetes mellitus] Onset: 5 Episodic Rheumatoid arthritis and related disease (20 sources) Rheumatoid arthritis of knee; Translations: [Rheumatoid arthritis with rheumatoid factor of unspecified knee without organ or systems involvement] Onset: 5 Resolved: 9 12-12-2014 Chronic Skull and face fractures (20 sources) Closed fracture of medial wall of orbit; Translations: [Fracture of medial orbital wall, unspecified side, initial encounter for closed fracture] 08-08-2019 Episodic Superficial injury; contusion (20 sources) Contusion of face; Translations: [Contusion of other part of head, initial encounter] 08-08-2019 Episodic Unclassified (1 source) Non-Chemotherapy Treatment Onset: 4 Unclassified (1 source) Esophagitis, unspecified without bleeding; Translations: [Esophagitis, unspecified without bleeding] Onset: 5 Past or Other Problems Problem Classification Problem Date Documented Da te Episodic/Chronic Abdominal pain (20 sources) Abdominal pain; Translations: [Unspecified abdominal pain] Onset: 6 Resolved: 2 Episodic Acute posthemorrhagic anemia (20 sources) Acute posthemorrhagic anemia; Translations: [Acute posthemorrhagic anemia] Onset: 1 Resolved: 1 01-14-2021 Episodic Allergic reactions (20 sources) Radiation-induced dermatosis; Translations: [Other skin changes due to chronic exposure to nonionizing radiation] Onset: 6 Resolved: 5 02-17-2012 Episodic Biliary tract disease (20 sources) Biliary colic; Translations: [Calculus of bile duct without cholangitis or cholecystitis without obstruction] Onset: 2 Episodic Cancer of breast (20 sources) Malignant neoplasm of lower-inner quadrant of female breast; Translations: [Malignant neoplasm of lower-inner quadrant of right female breast] Onset: 8 Resolved: 2 06-03-2017 Chronic Cancer of breast (20 sources) History of malignant neoplasm of breast; Translations: [Personal history of malignant neoplasm of breast] Onset: 8 Resolved: 2 Episodic Cardiac dysrhythmias (20 sources) Palpitations; Translations: [Palpitations] Onset: 6 Resolved: 2 02-17-2012 Episodic Deficiency and other anemia (20 sources) Anemia; Translations: [Anemia, unspecified] Onset: 2 08-13-2021 Episodic Fever of unknown origin (20 sources) Fever; Translations: [Fever, unspecified] Onset: 2 07-06-2021 Episodic Gastrointestinal hemorrhage (20 sources) Gastrointestinal hemorrhage; Translations: [Hemorrhage of anus and rectum] Onset: 1 Resolved: 1 Episodic Genitourinary symptoms and ill-defined conditions (20 sources) Urgent desire to urinate; Translations: [Urgency of urination] Onset: 8 Resolved: 2 07-27-2015 Episodic Hemorrhoids (20 sources) Hemorrhoids; Translations: [Unspecified hemorrhoids] Resolved: 4 04-14-2013 Episodic Intestinal infection (20 sources) Clostridium difficile colitis; Translations: [Enterocolitis due to Clostridium difficile, not specified as recurrent] Onset: 3 Resolved: 5 04-15-2014 Episodic Noninfectious gastroenteritis (20 sources) Colitis; Translations: [Noninfective gastroenteritis and colitis, unspecified] Onset: 5 Resolved: 2 04-09-2021 Episodic Nonmalignant breast conditions (20 sources) Breast lump; Translations: [Unspecified lump in unspecified breast] Onset: 8 Resolved: 4 04-14-2013 Episodic Nutritional deficiencies (20 sources) Serum iron low; Translations: [Iron deficiency] Onset: 4 10-26-2021 Episodic Other aftercare (20 sources) Long-term current use of anticoagulant; Translations: [USP (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 anticoagulants] Onset: 5 03-22-2019 Episodic Other and unspecified benign neoplasm (20 sources) History of polyp of colon; Translations: [Personal history of colonic polyps] Onset: 8 09-05-2017 Episodic Other and unspecified benign neoplasm (20 sources) Benign neoplasm of skin of lower limb; Translations: [Other benign neoplasm of skin of unspecified lower limb, including hip] Onset: 6 Resolved: 4 02-17-2012 Episodic Other and unspecified benign neoplasm (20 sources) Benign neoplasm of skin of trunk; Translations: [Other benign neoplasm of skin of trunk] Onset: 6 Resolved: 2 02-17-2012 Episodic Other and unspecified benign neoplasm (20 sources) Benign neoplasm of colon; Translations: [Benign neoplasm of colon, unspecified] Onset: 8 Resolved: 2 04-09-2021 Episodic Other and unspecified benign neoplasm (20 sources) Benign neoplasm of skin of face; Translations: [Other benign neoplasm of skin of unspecified part of face] Onset: 8 Resolved: 3 12-12-2012 Episodic Other and unspecified benign neoplasm (20 sources) Melanocytic nevi of unspecified part of face; Translations: [Benign neoplasm of skin of other and unspecified parts of face] Onset: 0 Resolved: 4 04-14-2013 Episodic Other and unspecified benign neoplasm (20 sources) Melanocytic nevus of trunk; Translations: [Melanocytic nevi of trunk] Onset: 0 Resolved: 4 04-14-2013 Episodic Other and unspecified benign neoplasm (20 sources) Dermal cellular nevus ; Translations: [Other benign neoplasm of skin, unspecified] Onset: 3 Resolved: 4 04-14-2013 Episodic Other and unspecified benign neoplasm (20 sources) Senile angioma; Translations: [Hemangioma of skin and subcutaneous tissue] Onset: 4 Resolved: 5 04-15-2014 Episodic Other circulatory disease (20 sources) Elevated blood-pressure reading without diagnosis of hypertension; Translations: [Elevated blood-pressure reading, without diagnosis of hypertension] Resolved: 8 07-28-2007 Episodic Other circulatory disease (20 sources) Spider nevus; Translations: [Nevus, non-neoplastic] Onset: 0 Resolved: 4 04-14-2013 Episodic Other connective tissue disease (20 sources) Recurrent falls ; Translations: [Repeated falls] Onset: 1 12-06-2020 Episodic Other connective tissue disease (20 sources) Swelling of left lower limb; Translations: [Other specified soft tissue disorders] Onset: 2 08-13-2021 Episodic Other connective tissue disease (1 source) Muscle wasting and atrophy, not elsewhere classified, right lower leg; Translations: [Muscle wasting and atrophy, not elsewhere classified, right lower leg] Onset: 4 Episodic Other diseases of bladder and urethra (20 sources) Disorder of bladder; Translations: [Other specified disorders of bladder] Onset: 8 Resolved: 1 02-13-2011 Chronic Other diseases of veins and lymphatics (20 sources) Lymphedema of upper limb; Translations: [Lymphedema, not elsewhere classified] Onset: 6 Resolved: 2 04-09-2021 Chronic Other disorders of stomach and duodenum (20 sources) Nonulcer dyspepsia; Translations: [Functional dyspepsia] Onset: 8 09-05-2017 Episodic Other endocrine disorders (20 sources) Non-diabetic disorder of endocrine pancreas; Translations: [Other specified disorders of pancreatic internal secretion] Onset: 8 Resolved: 5 04-15-2014 Chronic Other eye disorders (1 source) Dry eye syndrome of bilateral lacrimal glands; Translations: [Dry eye syndrome of bilateral lacrimal glands] Onset: 5 Episodic Other gastrointestinal disorders (20 sources) Irritable bowel syndrome; Translations: [Irritable bowel syndrome without diarrhea] Resolved: 5 04-15-2014 Chronic Other gastrointestinal disorders (20 sources) Diarrhea; Translations: [Diarrhea, unspecified] Onset: 8 Resolved: 4 04-14-2013 Episodic Other gastrointestinal disorders (1 source) Abdominal distension (gaseous); Translations: [Abdominal bloating] Onset: 5 Episodic Other gastrointestinal disorders (1 source) Other fecal abnormalities; Translations: [Occult blood in stools] Onset: 5 Episodic Other gastrointestinal disorders (1 source) Dysphagia, oropharyngeal phase; Translations: [Dysphagia, oropharyngeal phase] Onset: 5 Episodic Other hematologic conditions (1 source) Abnormality of albumin; Translations: [Abnormality of albumin] Onset: 5 Episodic Other hereditary and degenerative nervous system conditions (20 sources) System disorder of the nervous system; Translations: [Other specified extrapyramidal and movement disorders] Resolved: 5 04-15-2014 Chronic Other infections; including parasitic (20 sources) History of Clostridium difficile intestinal infection; Translations: [Personal history of other infectious and parasitic diseases] Onset: 6 04-09-2021 Episodic Other inflammatory condition of skin (20 sources) Rosacea; Translations: [Rosacea, unspecified] Onset: 4 Resolved: 5 04-15-2014 Chronic Other inflammatory condition of skin (20 sources) Seborrheic dermatitis; Translations: [Seborrheic dermatitis, unspecified] Onset: 8 Resolved: 2 02-17-2012 Episodic Other inflammatory condition of skin (20 sources) Intertrigo; Translations: [Erythema intertrigo] Onset: 2 Resolved: 5 04-15-2014 Episodic Other inflammatory condition of skin (20 sources) Pruritus, unspecified; Translations: [Unspecified pruritic disorder] Onset: 4 Resolved: 5 04-15-2014 Episodic Other liver diseases (20 sources) Chronic nonalcoholic liver disease; Translations: [Other specified diseases of liver] Onset: 6 Resolved: 2 04-09-2021 Chronic Other liver diseases (20 sources) Elevated levels of transaminase & lactic acid dehydrogenase; Translations: [Nonspecific elevation of levels of transaminase or lactic acid dehydrogenase (LDH)] Onset: 6 Resolved: 2 02-17-2012 Episodic Other nervous system disorders (20 sources) Disorder of nerve root and/or plexus; Translations: [Other nerve root and plexus disorders] Onset: 8 Resolved: 5 04-15-2014 Chronic Other nervous system disorders (20 sources) Impairment of balance; Translations: [Other abnormalities of gait and mobility] Onset: 1 12-06-2020 Episodic Other non-traumatic joint disorders (20 sources) Arthralgia of the pelvic region and thigh; Translations: [Pain in unspecified hip] Onset: 0 Resolved: 5 04-15-2014 Episodic Other non-traumatic joint disorders (20 sources) Bilateral shoulder joint pain; Translations: [Pain in right shoulder] Onset: 5 Resolved: 2 04-09-2021 Episodic Other non-traumatic joint disorders (1 source) Pain in right hip; Translations: [Bilateral hip pain] Onset: 5 Episodic Other non-traumatic joint disorders (1 source) Pain in left hip; Translations: [Bilateral hip pain] Onset: 5 Episodic Other nutritional; endocrine; and metabolic disorders (20 sources) Obese class I; Translations: [Obesity, unspecified] Onset: 1 Resolved: 2 04-09-2021 Chronic Other screening for suspected conditions (not mental disorders or infectious disease) (20 sources) Patient encounter status; Translations: [Encounter for screening for osteoporosis] Onset: 6 Resolved: 2 06-06-2023 Episodic Other skin disorders (20 sources) Primary focal hyperhidrosis; Translations: [Primary focal hyperhidrosis, unspecified] Onset: 3 05-29-2012 Episodic Other skin disorders (20 sources) Seborrheic keratosis; Translations: [Other seborrheic keratosis] Onset: 6 Resolved: 5 02-17-2012 Episodic Other skin disorders (20 sources) Scar conditions and fibrosis of skin; Translations: [Scar conditions and fibrosis of skin] Onset: 6 Resolved: 2 02-17-2012 Episodic Other skin disorders (20 sources) Disorder of skin; Translations: [Hypertrophic disorder of the skin, unspecified] Onset: 6 Resolved: 2 02-17-2012 Episodic Other skin disorders (20 sources) Disorder of sebaceous gland; Translations: [Other specified follicular disorders] Onset: 8 Resolved: 3 02-17-2012 Episodic Other skin disorders (20 sources) Inflamed seborrheic keratosis; Translations: [Inflamed seborrheic keratosis] Onset: 8 Resolved: 5 12-12-2012 Episodic Other skin disorders (20 sources) Sebaceous cyst of skin; Translations: [Sebaceous cyst] Onset: 8 Resolved: 3 12-12-2012 Episodic Other skin disorders (20 sources) Solar lentigo; Translations: [Other melanin hyperpigmentation] Onset: 0 Resolved: 5 04-14-2013 Episodic Other skin disorders (20 sources) Epidermoid cyst of skin; Translations: [Epidermal cyst] Onset: 2 Resolved: 5 04-15-2014 Episodic Other skin disorders (20 sources) Asteatosis cutis; Translations: [Xerosis cutis] Onset: 2 Resolved: 5 04-14-2013 Episodic Other skin disorders (20 sources) Skin tag; Translations: [Other hypertrophic disorders of the skin] Onset: 3 Resolved: 4 04-14-2013 Episodic Other skin disorders (20 sources) Folliculitis; Translations: [Follicular disorder, unspecified] Onset: 4 Resolved: 5 04-15-2014 Episodic Other upper respiratory disease (20 sources) Other diseases of pharynx; Translations: [Other diseases of pharynx, not elsewhere classified] Resolved: 4 04-14-2013 Episodic Residual codes; unclassified (20 sources) Family history of malignant neoplasm of ovary; Translations: [Family history of malignant neoplasm of ovary] Onset: 0 Resolved: 4 04-14-2013 Episodic Residual codes; unclassified (1 source) Estrogen receptor positive status [ER+]; Translations: [Malignant neoplasm of lower-inner quadrant of right breast of female, estrogen receptor positive (HCC)] Onset: 4 Episodic Residual codes; unclassified (1 source) Edema, unspecified; Translations: [Edema, unspecified] Onset: 4 Episodic Spondylosis; intervertebral disc disorders; other back problems (20 sources) Degeneration of lumbosacral intervertebral disc; Translations: [Other intervertebral disc degeneration, lumbosacral region] Onset: 6 Resolved: 2 02-17-2012 Chronic Spondylosis; intervertebral disc disorders; other back problems (20 sources) Low back pain; Translations: [Lumbago] Onset: 4 Resolved: 5 04-15-2014 Episodic Sprains and strains (20 sources) Neck sprain; Translations: [Sprain of joints and ligaments of unspecified parts of neck, initial encounter] Onset: 6 Resolved: 2 02-17-2012 Episodic Urinary tract infections (20 sources) Acute cystitis; Translations: [Acute cystitis without hematuria] Onset: 1 Resolved: 5 07-08-2021 Episodic Viral infection (20 sources) Disease caused by 2019-nCoV; Translations: [COVID-19] Onset: 8 Resolved: 3 10-18-2021 Episodic Results Test Name Value Interpretation Reference Range Facility Forearm 2 Viewson 08-18-2024 Forearm 2 Views [facility] Imaging Services [address] [place] [address] Forearm 2 Views MR#: [id number] Acct: [id number] Name: CHRISTIAN LANDRUM Rep #: [id number] : 1935 F 89 From: Nic Ozuna MD PCP: Dr. Reji Reyna MD Status: DEP [facility] Study: Forearm 2 Views Date of Exam: 08/18/24 Exam# [id number] Ordering Dr: Carmella Deluca PROCEDURE: FOREARM 2 VIEWS 08/18/2024 REASON FOR EXAM: FX F/U TECHNIQUE: 2 view(s) of the left forearm COMPARISON: Left forearm, 08/14/2019. FINDINGS: There is a healing greenstick fracture of the distal ulnar shaft. There is no significant angulation deformity. RAD/Forearm 2 Views IMPRESSION: Healing ulnar shaft fracture. Reading Location: [id number] CC: OLIVE Deluca; Dr. Reji eRyna MD Lifeguard: Signed Normal [facility] Orthopedic Visit Reporton Orthopedic Visit Report [facility] [address] [place] [address] [address] [place] [address] OFFICE VISIT Date of Service: 08/18/24 MR#: [id number] Acct: [id number] Name: CHRISTIAN LANDRUM Rep #: [id number] : 1935 Provider: OLIVE manzo Age/Sex: 89/F Location: [facility] Status: Signed Intake Vital Signs 08/13/24 13:10 08/18/24 14:34 Height 5 ft 5 in 5 ft 5 in Weight: 175 lb BMI 29.1 Intake Visit Reasons: LEFT ULNA Chief Complaint: Left Ulna Accompanied by: Daughter Is patient in pain?: No Allergies DESMOND Inhibitors Allergy (Verified 08/18/24 14:36) Unknown adhesive Allergy (Verified 08/18/24 14:36) Unknown cyclobenzaprine HCl (From Flexeril) Allergy (Verified 08/18/24 14:36) Unknown diclofenac sodium (From Arthrotec) Allergy (Verified 08/18/24 14:36) Unknown hydrochlorothiazide Allergy (Verified 08/18/24 14:36) Unknown lisinopril (From Zestril) Allergy (Verified 08/18/24 14:36) Unknown metronidazole (From Flagyl) Allergy (Verified 08/18/24 14:36) Unknown misoprostol (From Arthrotec) Allergy (Verified 08/18/24 14:36) Unknown naproxen Allergy (Verified 08/18/24 14:36) Unknown paroxetine HCl (From Paxil) Allergy (Verified 08/18/24 14:36) Unknown prednisolone acetate (From Blephamide) Allergy (Verified 08/18/24 14:36) Unknown sulfacetamide sodium (From Blephamide) Allergy (Verified 08/18/24 14:36) Unknown Medications ???Medication ???Instructions ???Recorded ???Confirmed ???Type gabapentin 600 mg tablet 300 mg PO QHS 08/30/14 08/18/24 Hi story multivitamin with folic acid 400 1 tab PO DAILY 08/30/14 08/18/24 H istory mcg tablet (Thera) diclofenac sodium 1 % topical gel 100 g TP PRN PRN Pain 03/26/18 History (Voltaren) acetaminophen 325 mg tablet 650 mg PO Q6H PRN Pain 08/20/21 History (Tylenol) ascorbic acid (vitamin C) 500 mg 500 mg PO DAILY 08/20/21 08/18/24 History tablet (Vitamin C) cholecalciferol (vitamin D3) 25 25 mcg PO DAILY 08/20/21 08/18/24 History mcg (1,000 unit) chewable tablet (Vitamin D3) escitalopram oxalate 10 mg tablet 10 mg PO DAILY 08/20/21 08/18/24 History (Lexapro) fluticasone propionate 50 1 spray intranasal DAILY 08/20/21 08/18/24 History mcg/actuation nasal spray,suspension (Flonase Allergy Relief) furosemide 20 mg tablet (Lasix) 20 mg PO QODAY 08/20/21 08/18/24 H istory levothyroxine 25 mcg capsule 25 mcg PO DAILY 08/20/21 08/18/24 History metoprolol succinate 25 mg 25 mg PO DAILY 08/20/21 08/18/24 H istory tablet,extended release 24 hr omeprazole magnesium 20 mg 40 mg PO DAILY 08/20/21 08/18/24 H istory capsule,delayed release cetirizine 10 mg tablet 10 mg PO DAILY 03/06/22 08/18/24 H istory ferrous gluconate 324 mg (37.5 mg 324 mg PO DAILY 03/06/22 08/18/24 History iron) tablet guaifenesin 100 mg/5 mL oral liquid 200 mg PO Q4H PRN Cough 2 08/18/24 History methenamine hippurate 1 gram 1 g PO BID 03/06/22 08/18/24 Histo ry tablet (Hiprex) sennosides 8.6 mg-docusate sodium 1 tab-cap PO BID PRN constipation 03/06/22 08/18/24 History 50 mg capsule (Senna Plus) Handicapped placcard See Rx Instructions .Route 3 08/18/24 Rx .COMPLEX #1 unit tramadol 50 mg tablet 50 mg PO .qid pain 30 days #120 08/18/24 Rx tabs carboxymethylcellulose sodium 1 % 1 drp ophthalmic (eye) Q4H PRN 08/18/24 History eye drops (Artificial Tears (carboxymethylcellulose)) copper gluconate 2 mg tablet 2 mg PO QDAY 08/13/24 08/18/24 His tory polyethylene glycol 3350 17 gram 17 g PO QDAY PRN 08/13/24 08/18/24 History oral powder packet prednisone 20 mg tablet 40 mg PO QDAY 08/18/24 08/18/24 Hi story Have you fallen in the past year?: Yes PFSH Medical History Loss of hearing Wears glasses Hx of squamous cell carcinoma Cancer Depression Open wound History of steroid therapy Thyroid disease Rheumatoid arthritis Bladder disease Cirrhosis Anemia Restless legs Back pain Migraine headache Injury of head and neck Syncope History of esophageal varices with bleeding History of IBS History of diverticulitis Gastric reflux Non-smoker BiPAP (biphasic positive airway pressure) dependence Leg cramps History of pain when walking History of edema History of echocardiogram History of stress test Cardiology follow-up encounter History of rheumatic fever History of atrial fibrillation Breast CA Surgical History History of esophagogastroduodenoscopy (EGD) Hx of colonoscopy Hx of resection of small bowel Hx of oophorectomy Hx of tonsillectomy Hx of mastectomy (more content not included)... Normal [facility] Forearm 2 Viewson 08-13-2024 Forearm 2 Views [facility] Imaging Services [address] [place], [place] [address] Forearm 2 Views MR#: [id number] Acct: [id number] Name: CHRISTIAN LANDRUM Rep #: [id number] : 1935 F 89 From: Obdulia Snider MD PCP: Dr. Reji Reyna MD Status: DEP AMB Study: Forearm 2 Views Date of Exam: 08/13/24 Exam# [id number] Ordering Dr: Carmella Deluca [employer] PROCEDURE: FOREARM 2 VIEWS 08/13/2024 REASON FOR EXAM: FALL TECHNIQUE: 2 view(s) of the left forearm COMPARISON: None available FINDINGS: Acute mildly comminuted and displaced distal ulna diaphysis fracture with approximate 2-3 mm of palmar translation of the distal fragment in relation to the proximal shaft. A 2nd fracture is not identified. The radial head appears located as expected. The distal radioulnar joint appears within limits. 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 Osteopenia. RAD/Forearm 2 Views IMPRESSION: Acute mildly comminuted and displaced distal ulna diaphysis fracture with approximate 2-3 mm of palmar translation of the distal fragment in relation to the proximal shaft. A 2nd fracture is not identified. 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 Osteopenia. Reading Location: [facility] CC: OLIVE Deluca; Dr. Reji Reyna MD Lifeguard: Signed Normal [facility] Humerus min 2 Viewson 2024 Humerus min 2 Views [facility] Imaging Services [address] [place], [place] [id number] Humerus min 2 Views MR#: [id number] Acct: [id number] Name: CHRISTIAN LANDRUM Rep #: [id number] : 1935 F 89 From: Obdulia Snider MD PCP: Dr. Reji Reyna MD Status: DEP AMB Study: Humerus min 2 Views Date of Exam: 08/13/24 Exam# [id number] Ordering Dr: Carmella Deluca PROCEDURE: HUMERUS MIN 2 VIEWS 08/13/2024 REASON FOR EXAM: FALL TECHNIQUE: 2 view(s) of the left humerus. 2 AP and single lateral, 3 total images COMPARISON: None available FINDINGS: No humeral fracture. Severe appearing glenohumeral joint osteoarthrosis with joint space narrowing and large osteophyte, heterotopic bone formation at the humeral head. RAD/Humerus min 2 Views IMPRESSION: No humerus fracture. Please see forearm report for description of ulnar fracture. Left glenohumeral joint osteoarthrosis as above. Reading Location: [facility] CC: OLIVE Deluca; Dr. Reji Reyna MD Lifeguard: Signed Normal [facility] Orthopedic Visit Reporton Orthopedic Visit Report [facility] [address] [place] [address] [address] [place] [id number] OFFICE VISIT Date of Service: 08/13/24 MR#: [id number] Acct: [id number] Name: CHRISTIAN LANDRUM Rep #: [id number] : 1935 Provider: OLIVE manzo Age/Sex: 89/F Location: [facility] [place] Status: Signed Intake Vital Signs 08/13/24 13:10 Height 5 ft 5 in Intake Visit Reasons: LEFT ULNA Chief Complaint: Left Ulna Accompanied by: Daughter Is patient in pain?: Yes Pain scale (1-10): 6 Allergies DESMOND Inhibitors Allergy (Verified 08/13/24 14:11) Unknown adhesive Allergy (Verified 08/13/24 14:11) Unknown cyclobenzaprine HCl (From Flexeril) Allergy (Verified 08/13/24 14:11) Unknown diclofenac sodium (From Arthrotec) Allergy (Verified 08/13/24 14:11) Unknown hydrochlorothiazide Allergy (Verified 08/13/24 14:11) Unknown lisinopril (From Zestril) Allergy (Verified 08/13/24 14:11) Unknown metronidazole (From Flagyl) Allergy (Verified 08/13/24 14:11) Unknown misoprostol (From Arthrotec) Allergy (Verified 08/13/24 14:11) Unknown naproxen Allergy (Verified 08/13/24 14:11) Unknown paroxetine HCl (From Paxil) Allergy (Verified 08/13/24 14:11) Unknown prednisolone acetate (From Blephamide) Allergy (Verified 08/13/24 14:11) Unknown sulfacetamide sodium (From Blephamide) Allergy (Verified 08/13/24 14:11) Unknown Have you fallen in the past year?: Yes PFSH Medical History Loss of hearing Wears glasses Hx of squamous cell carcinoma Cancer Depression Open wound History of steroid therapy Thyroid disease Rheumatoid arthritis Bladder disease Cirrhosis Anemia Restless legs Back pain Migraine headache Injury of head and neck Syncope History of esophageal varices with bleeding History of IBS History of diverticulitis Gastric reflux Non-smoker BiPAP (biphasic positive airway pressure) dependence Leg cramps History of pain when walking History of edema History of echocardiogram History of stress test Cardiology follow-up encounter History of rheumatic fever History of atrial fibrillation Breast CA Surgical History History of esophagogastroduodenoscopy (EGD) Hx of colonoscopy Hx of resection of small bowel Hx of oophorectomy Hx of tonsillectomy Hx of mastectomy H/O mastectomy Social History Smoking Status: Never smoker HPI LEFT ULNA Details: This documentation accurately reflects the service provided and the decisions made by me, Carmella Deluca, [employer] 08/13/24 5618. Part of today???s visit was documented by Leticia Waldrop ATC, acting as scribe. CHRISTIAN LANDRUM is a 89 year old F here today for left ulna fracture. Patient fell getting out of the shower Friday morning. Her daughter states she got out of the shower and slipped in water and fell to the ground. Patient is RHD. She rates her pain a 6/10 today. She does have some numbness and tingling in the hand and fingers. Patient does not have a splint on but is wrapped with an DESMOND wrap. She has significant bruising in the arm. She does have a skin tear on the forearm as well. She denies any prior injuries to the left arm/wrist. Agree with above. Christian is a pleasant 89-year-old female accompanied by her adult daughter who contributes with today's H P. Patient slipped and fell 3 days ago getting out of the shower, unsure how she landed but most noted left wrist pain with limited range of motion and bruising. Patient stays at facility and the SAP BW CONSULTANT there today reports a portable x-ray showed an ulnar fracture and was sent here for further evaluation. She has not had any bracing or splinting. Patient states symptoms are aggravated with attempts to use her walker, push herself up and any weightbearing of the left arm. Patient is taking Tylenol and tramadol as needed for pain, daughter reports she is currently on palliative care and has these prescriptions available. ROS Const All systems reviewed are unremarkable except as noted in H and other (A O x 3, no apparent distress. No recent illness.) ENT Denies dizziness Card Denies chest pain, Denies dyspnea, Denies edema and Reports other (No palpitations) Resp Denies cough, Denies dyspnea and Reports other (No recent URI) GI Reports system reviewed and no additional complaints, except as documented, Denies nausea and Denies vomiting Musc Details: Main source of pain is left forearm, worse with movement. History of left shoulder limited range of motion and pain, history of RA Neuro No dizziness Psych Reports system reviewed and no additional complaints, except as documented Ramsey/Lymph Denies easy bleeding and Denies easy bruising Ortho Exam Left Wrist/Hand Peña (more content not included)... Normal [facility] CT Abd/Pelvis W/WO Contrasto n 08-06-2024 CT Abd/Pelvis W/WO Contrast [facility] Imaging Services [address] [place], [place] [address] CT Abd/Pelvis W/WO Contrast MR#: [id number] Acct: [id number] Name: CHRISTIAN LANDRUM Rep #: [id number] : 1935 F 89 From: Mallika wyatt MD PCP: Dr. Reji Reyna MD Status: REG CLI Study: CT Abd/Pelvis W/WO Contrast Date of Exam: 07/16 06/08 Exam# [id number] Ordering Dr: Hiwot Abdullahi MD PROCEDURE: CT ABD/PELVIS W/WO CONTRAST 08/06/2024 REASON FOR EXAM: UTI /DIARRHEA/ BLADDER FISTULA TECHNIQUE: Abdomen and pelvis CT with intravenous contrast. Coronal and Sagittal reconstruction series were provided. PATIENT PREPARATION: Per protocol ORAL CONTRAST TYPE: None. CONTRAST: Isovue-300 50 VOLUME: 100 mL One or more dose reduction techniques were used (e.g., Automated exposure control, adjustment of the mA and/or kV according to patient size, use of iterative reconstruction technique. Precontrast images are provided. Delayed post IV contrast images. RADIATION DOSE SUMMARY: CTDlvol: 25.2 mGy DLP: 1169 mGycm COMPARISON: None. FINDINGS: Cirrhotic liver. Mild splenomegaly. Cholelithiasis. Mild diffuse thickening of the underdistended gallbladder. 3 mm stone in the most distal aspect of the common bile duct. Diffuse thickening of the wall of the bladder suggestive of mild cystitis. Gas density is noted in the lumen of the bladder. Please correlate with recent instrumentation to exclude the presence of fistula. No evidence of contrast leakage on delayed phase images from the bladder. Diffuse colonic diverticulosis. Minimal thickening of the mid sigmoid colon, possibly minimal colitis. Diffuse spondylosis. Fat containing umbilical hernia without incarceration. Small sliding hiatal hernia. Diffuse thickening of the stomach suggestive of gastritis. Normal extrahepatic biliary system. Normal pancreas. Normal bilateral adrenal glands. Normal size of the right kidney. There is no right renal mass. There are no right renal calculi. There is no right hydronephrosis. Normal visualized right ureter. Normal size of the left kidney. There is no left renal mass. There are no left renal calculi. There is no left hydronephrosis. Normal visualized left ureter. Normal small intestine. There is no demonstrated peritoneal fluid. Normal abdominal aorta. Normal inferior vena cava. Normal retroperitoneum. There is no pelvic mass lesion or lymphadenopathy. There is no pelvic fluid. CT/CT Abd/Pelvis W/WO Contrast IMPRESSION: 1. Cirrhotic liver. 2. Mild splenomegaly. 3. Cholelithiasis. 4. Mild diffuse thickening of the underdistended gallbladder. 5. 3 mm stone in the most distal aspect of the common bile duct. 6. Diffuse thickening of the wall of the bladder suggestive of mild cystitis. 7. Gas density is noted in the lumen of the bladder. Please correlate with recent instrumentation to exclude the presence of fistula. 8. No evidence of contrast leakage on delayed phase images from the bladder. 9. Diffuse colonic diverticulosis. 10. Minimal thickening of the mid sigmoid colon, possibly minimal colitis. 11. Diffuse spondylosis. 12. Fat containing umbilical hernia without incarceration. 13. Small sliding hiatal hernia. 14. Diffuse thickening of the stomach suggestive of gastritis. Reading Location: [place] [address] CC: Dr. Reji Reyna MD; Dr. Hiwot Abdullahi MD Lifeguard: Signed Normal [facility] Absolute lymphocyte countOrd ered By: Reji Reyna on 08-02-2024 Lymphocytes Auto (Unsp spec) [#/Vol] 0.96 10*3/uL 0.83-4.51 [facility] Absolute neutrophil countOrd ered By: Reji Reyna on 08-02-2024 Neutrophils (Bld) [#/Vol] 4.6 10*3/uL 2.0-7.7 [facility] Anion gap in Serum or Plasma Ordered By: Reji Reyna on 05-19-2025 Anion gap [Moles/Vol] 9 mmol/L 5-15 [facility] Automated lymphocyte count a s percentage of total leukocytesOrdered By: Reji Reyna on 08-02-2024 Lymphocytes/100 WBC Auto (Unsp spec) 15.0 % Low 19-41 [facility] BUN/creatinine ratioOrdered By: Reji Reyna on 08-02-2024 Urea nitrogen/Creatinine [Mass ratio] 27.8 mg/mg High 10-20 [facility] Basophil percentageOrdered B y: Reji Reyna on 08-02-2024 Basophils/100 WBC (Bld) 0.6 % 0-1 [facility] Bilirubin, totalOrdered By: Reji Reyna on 08-02-2024 Bilirubin [Mass/Vol] 0.73 mg/dL 0.00-1.30 [facility] Carbon dioxide, total [Moles /volume] in Central venous bloodOrdered By: Reji Reyna on 08-02-2024 CO2 [Moles/Vol] 23.8 mmol/L 21.0-32.0 [facility] Chloride assayOrdered By: Angelito Reyna on 08-02-2024 Chloride [Moles/Vol] 104 mmol/L 98-108 [facility] Eosinophil percentageOrdered By: Reji Reyna on 08-02-2024 Eosinophils/100 WBC (Bld) 1.4 % 0-5 [facility] Erythrocyte distribution wid th ratioOrdered By: Reji Reyna on 08-02-2024 Erythrocyte distribution width (RBC) [Ratio] 16.2 % High 11.6-14.6 [facility] Erythrocyte distribution wid th standard deviationOrdered By: Reji Reyna on 08-02-2024 Erythrocyte distribution width (RBC) [Ratio] 58.4 fl High 35.1-43.9 [facility] Glomerular filtration rate ( GFR) estimation/1.73 sq m using serum, plasma, or whole bOrdered By: Reji Reyna on 08-02-2024 GFR/1.73 sq M.predicted among non-blacks MDRD (S/P/Bld) [Vol rate/Area] 87 mL/min/{1.73_m2} >60 [facility] Comment on above: mL/min/1.73m2 CKD-EP I Creatinine Equation (2020) Hematocrit Auto (Bld) [Volum e fraction]Ordered By: Reji Reyna on 08-02-2024 Hematocrit (Bld) [Volume fraction] 36.7 % Low 37-47 [facility] Hemoglobin measurementOrdere d By: Reji Reyna on 08-02-2024 Hemoglobin (Bld) [Mass/Vol] 12.1 g/dL 12.0-15.0 [facility] Immature granulocytes/100 WB C Auto (Bld)Ordered By: arline Reyna on 08-02-2024 Immature granulocytes/100 WBC (Bld) 0.800 % 0.0-0.9 [facility] Comment on above: IG% - Immature Granu locytes (promyelocytes, myelocytes and metamyelocytes) > 1% indicates that a LEFT SHIFT is Present. Laboratory - Chemistry and C hemistry - challengeOrdered By: Reji Reyna on 08-02-2024 AST [Catalytic activity/Vol] 33 U/L High <32 [facility] MCV (mean corpuscular volume ) determinationOrdered By: Reji Reyna on 08-02-2024 MCV (RBC) [Entitic vol] 98.4 fL 81-99 [facility] Mean corpuscular hemoglobin (MCH) determinationOrdered By: Reji Reyna on 08-02-2024 MCH (RBC) [Entitic mass] 32.4 pg High 27.0-32.0 [facility] Mean corpuscular hemoglobin concentration (MCHC) determinationOrdered By: arline Reyna on 08-02-2024 MCHC (RBC) [Mass/Vol] 33.0 g/dL 32-36 [facility] Mean platelet volume determi nationOrdered By: Reji Reyna on 08-02-2024 Platelet mean volume (Bld) [Entitic vol] 9.4 fL 6.2-12.0 [facility] Monocyte percentageOrdered B y: Reji Reyna on 08-02-2024 Monocytes/100 WBC (Bld) 10.5 % High 0-10 [facility] Neutrophil percentageOrdered By: Reji Reyna on 08-02-2024 Neutrophils/100 WBC (Bld) 71.7 % High 47-70 [facility] Nucleated red blood cell per centageOrdered By: Reji Reyna on 08-02-2024 Nucleated RBC/100 WBC (Bld) [Ratio] 0 % 0-5 [facility] Platelet countOrdered By: Angelito Reyna on 08-02-2024 Platelets (Bld) [#/Vol] 141 10*3/uL Low 150-450 [facility] Potassium measurement (mass/ volume)Ordered By: Reji Reyna on 08-02-2024 Potassium (Unsp spec) [Mass/Vol] 4.4 mmol/L 3.3-5.1 [facility] RBC Auto (Bld) [#/Vol]Ordere d By: Reji Reyna on 08-02-2024 RBC (Bld) [#/Vol] 3.73 10*6/uL Low 4.2-5.4 [place] Serum creatinine measurement (mass/volume)Ordered By: Reji Reyna on 08-02-2024 Creatinine [Mass/Vol] 0.58 mg/dL Low 0.70-1.20 [facility] Serum globulin measurementOr dered By: Reji Reyna 08-02-2024 Globulin (S) [Mass/Vol] 3.7 g/dL 2.2-4.2 [facility] Serum glucose measurement (m ass/volume)Ordered By: Reji Reyna on 08-02-2024 Glucose [Mass/Vol] 79 mg/dL 70-99 [facility] Serum or plasma alanine cheatham otransferase (ALT) measurementOrdered By: Reji Reyna on 08-02-2024 ALT [Catalytic activity/Vol] 34 U/L <35 [facility] Serum or plasma albumin yonatan urement (mass/volume)Ordered By: Reji Reyna on 08-02-2024 Albumin [Mass/Vol] 3.4 g/dL 3.4-4.8 [facility] Serum or plasma albumin/glob ulin mass ratioOrdered By: Reji Reyna on 08-02-2024 Albumin/Globulin [Mass ratio] 0.9 {ratio} 0.9-2.4 [facility] Serum or plasma alkaline shannon sphatase measurementOrdered By: Angelitoarline Reyna on 08-02-2024 ALP [Catalytic activity/Vol] 63 U/L 35-104 [facility] Serum or plasma calcium yonatan urement (mass/volume)Ordered By: Reji Reyna on 08-02-2024 Calcium [Mass/Vol] 9.2 mg/dL 7.6-11.0 [facility] Serum or plasma urea nitroge n measurement (mass/volume)Ordered By: Reji Reyna 08-02-2024 Urea nitrogen [Mass/Vol] 16 mg/dL 4-19 [facility] Sodium levelOrdered By: Jas traceynicole Maribell on 08-02-2024 Sodium [Moles/Vol] 137 mmol/L 133-145 [facility] Total proteinOrdered By: Fredyalyssa brookegarfield Reyna on 08-02-2024 Protein [Mass/Vol] 7.1 g/dL 5.9-8.4 [facility] White blood cell (WBC) count Ordered By: Reji Reyna 08-02-2024 WBC (Bld) [#/Vol] 6.4 10*3/uL 4.4-11.0 [facility] Clostridium difficile detect ion by polymerase chain reactionOrdered By: Reji Reyna 07-08-2024 C. difficile DNA DEMARCUS+probe Ql (Unsp spec) [facility] Stool lactoferrin detection by immunoassayOrdered By: Reji Reyna 07-08-2024 Lactoferrin IA Ql (Stl) [facility] International normalized rat io (INR) calculationOrdered By: Reji Reyna 07-07-2024 INR Coag (Bld) [Relative time] 1.2 {INR} [facility] Prothrombin timeOrdered By: Reji Reyna 07-07-2024 PT Coag (PPP) [Time] 15.5 s High 11.7-14.9 [facility] T4 freeOrdered By: Reji Reyna on 07-07-2024 Free T4 [Mass/Vol] 0.80 ng/dL 0.76-1.46 [facility] TSH DL <= 0.005 mIU/L QnOrde red By: Reji Reyna on 07-07-2024 TSH Qn 1.430 uIU/mL 0.300-4.200 [facility] Absolute lymphocyte countOrd ered By: Reji Reyna on 07-05-2024 Lymphocytes Auto (Unsp spec) [#/Vol] 0.92 10*3/uL 0.83-4.51 [facility] Absolute neutrophil countOrd ered By: Reji Reyna on 07-05-2024 Neutrophils (Bld) [#/Vol] 4.1 10*3/uL 2.0-7.7 [facility] Anion gap in Serum or Plasma Ordered By: Reji Reyna on 07-05-2024 Anion gap [Moles/Vol] 9 mmol/L 5-15 [facility] Automated lymphocyte count a s percentage of total leukocytesOrdered By: Reji Reyna on 07-05-2024 Lymphocytes/100 WBC Auto (Unsp spec) 15.9 % Low 19-41 [facility] BUN/creatinine ratioOrdered By: Reji Reyna on 07-05-2024 Urea nitrogen/Creatinine [Mass ratio] 20.6 mg/mg High 10-20 [facility] Basophil percentageOrdered B y: Reji Reyna on 07-05-2024 Basophils/100 WBC (Bld) 0.5 % 0-1 [facility] Bilirubin, totalOrdered By: Reji Reyna on 07-05-2024 Bilirubin [Mass/Vol] 0.72 mg/dL 0.00-1.30 [facility] Carbon dioxide, total [Moles /volume] in Central venous bloodOrdered By: Reji Reyna on 07-05-2024 CO2 [Moles/Vol] 24.8 mmol/L 21.0-32.0 [facility] Chloride assayOrdered By: Angelito Reyna on 07-05-2024 Chloride [Moles/Vol] 103 mmol/L 98-108 [facility] Eosinophil percentageOrdered By: Reji Reyna on 07-05-2024 Eosinophils/100 WBC (Bld) 1.2 % 0-5 [facility] Erythrocyte distribution wid th ratioOrdered By: meryldeer parkgarfield Reyna on 07-05-2024 Erythrocyte distribution width (RBC) [Ratio] 15.9 % High 11.6-14.6 [facility] Erythrocyte distribution wid th standard deviationOrdered By: meryldeer parkgarfield Herronrejialyssa on 07-05-2024 Erythrocyte distribution width (RBC) [Ratio] 55.2 fl High 35.1-43.9 [facility] Glomerular filtration rate ( GFR) estimation/1.73 sq m using serum, plasma, or whole bOrdered By: [facility] Reyna on 07-05-2024 GFR/1.73 sq M.predicted among non-blacks MDRD (S/P/Bld) [Vol rate/Area] 87 mL/min/{1.73_m2} >60 [facility] Comment on above: mL/min/1.73m2 CKD-EP I Creatinine Equation (2020) Hematocrit Auto (Bld) [Volum e fraction]Ordered By: Reji Reyna on 07-05-2024 Hematocrit (Bld) [Volume fraction] 31.0 % Low 37-47 [facility] Hemoglobin A1c percentageOrd ered By: arline Reyna on 07-05-2024 HbA1c (Bld) [Mass fraction] 5.0 % <5.7 [facility] Comment on above: Normal < 5.7 % Predi abetic 5.7 - 6.4 % Diabetic >or= 6.5 % Please note range changes. Hemoglobin measurementOrdere d By: Reji Reyna on 07-05-2024 Hemoglobin (Bld) [Mass/Vol] 10.3 g/dL Low 12.0-15.0 [facility] Immature granulocytes/100 WB C Auto (Bld)Ordered By: Reji Reyna on 07-05-2024 Immature granulocytes/100 WBC (Bld) 0.700 % 0.0-0.9 [facility] Comment on above: IG% - Immature Granu locytes (promyelocytes, myelocytes and metamyelocytes) > 1% indicates that a LEFT SHIFT is Present. Laboratory - Chemistry and C hemistry - challengeOrdered By: Reji Reyna on 07-05-2024 AST [Catalytic activity/Vol] 32 U/L <32 [facility] MCV (mean corpuscular volume ) determinationOrdered By: Reji Reyna on 07-05-2024 MCV (RBC) [Entitic vol] 95.7 fL 81-99 [facility] Mean corpuscular hemoglobin (MCH) determinationOrdered By: [facility] Reyna on 07-05-2024 MCH (RBC) [Entitic mass] 31.8 pg 27.0-32.0 [facility] Mean corpuscular hemoglobin concentration (MCHC) determinationOrdered By: meryldeer parkgarfield Reyna on 07-05-2024 MCHC (RBC) [Mass/Vol] 33.2 g/dL 32-36 [facility] Mean platelet volume determi nationOrdered By: Reji Reyna on 07-05-2024 Platelet mean volume (Bld) [Entitic vol] 9.6 fL 6.2-12.0 [facility] Monocyte percentageOrdered B y: Reji Reyna on 07-05-2024 Monocytes/100 WBC (Bld) 11.3 % High 0-10 [facility] Neutrophil percentageOrdered By: [facility] Reyna on 07-05-2024 Neutrophils/100 WBC (Bld) 70.4 % High 47-70 [facility] Nucleated red blood cell per centageOrdered By: arline Reyna on 07-05-2024 Nucleated RBC/100 WBC (Bld) [Ratio] 0 % 0-5 [facility] Platelet countOrdered By: Angelito merylailyn Reyna on 07-05-2024 Platelets (Bld) [#/Vol] 151 10*3/uL 150-450 [facility] Potassium measurement (mass/ volume)Ordered By: Reji Reyna on 07-05-2024 Potassium (Unsp spec) [Mass/Vol] 4.0 mmol/L 3.3-5.1 [facility] RBC Auto (Bld) [#/Vol]Ordere d By: Reji Reyna on 07-05-2024 RBC (Bld) [#/Vol] 3.24 10*6/uL Low 4.2-5.4 [place] Serum creatinine measurement (mass/volume)Ordered By: Reji Reyna on 07-05-2024 Creatinine [Mass/Vol] 0.59 mg/dL Low 0.70-1.20 [facility] Serum globulin measurementOr dered By: Reji Reyna on 07-05-2024 Globulin (S) [Mass/Vol] 3.3 g/dL 2.2-4.2 [facility] Serum glucose measurement (m ass/volume)Ordered By: Reji Reyna on 07-05-2024 Glucose [Mass/Vol] 76 mg/dL 70-99 [facility] Serum or plasma alanine cheatham otransferase (ALT) measurementOrdered By: Reji Reyna on 07-05-2024 ALT [Catalytic activity/Vol] 23 U/L <35 [facility] Serum or plasma albumin yonatan urement (mass/volume)Ordered By: Reji Reyna on 07-05-2024 Albumin [Mass/Vol] 2.9 g/dL Low 3.4-4.8 [facility] Serum or plasma albumin/glob ulin mass ratioOrdered By: Reji Reyna 07-05-2024 Albumin/Globulin [Mass ratio] 0.9 {ratio} 0.9-2.4 [facility] Serum or plasma alkaline shannon sphatase measurementOrdered By: Reji Reyna 07-05-2024 ALP [Catalytic activity/Vol] 46 U/L 35-104 [facility] Serum or plasma calcium yonatan urement (mass/volume)Ordered By: Reji Reyna 07-05-2024 Calcium [Mass/Vol] 8.9 mg/dL 7.6-11.0 [facility] Serum or plasma urea nitroge n measurement (mass/volume)Ordered By: Reji Reyna 07-05-2024 Urea nitrogen [Mass/Vol] 12 mg/dL 4-19 [facility] Sodium levelOrdered By: Jas Reyna on 07-05-2024 Sodium [Moles/Vol] 137 mmol/L 133-145 [facility] Total proteinOrdered By: Fredy Reyna on 07-05-2024 Protein [Mass/Vol] 6.3 g/dL 5.9-8.4 [facility] White blood cell (WBC) count Ordered By: Reji Reyna on 07-05-2024 WBC (Bld) [#/Vol] 5.8 10*3/uL 4.4-11.0 [facility] Hemoglobin A1c percentageOrd ered By: Reji Reyna on 06-16-2024 HbA1c (Bld) [Mass fraction] 5.0 % Low >5.7 [facility] CBC W Auto Differential pane l (Bld)on 06-11-2024 Basophils (Bld) [#/Vol] [facility] Basophils/100 WBC (Bld) 0.3 % [facility] Differential cell count method Nom (Bld) Auto [facility] Eosinophils (Bld) [#/Vol] [facility] Eosinophils/100 WBC (Bld) 0.1 % [facility] Erythrocyte distribution width (RBC) [Ratio] 15.7 % High 11.5 - 15.0 % [facility] Hematocrit (Bld) [Volume fraction] 34.9 % Low 36.0 - 46.0 % [facility] Hemoglobin (Bld) [Mass/Vol] 11 g/dL Low 11.5 - 15.5 g/dL [facility] Immature granulocytes (Bld) [#/Vol] 0.06 10*3/uL [facility] Immature granulocytes/100 WBC (Bld) 0.8 % [facility] Interpretation and review of laboratory results Abnormal [facility] Lymphocytes (Bld) [#/Vol] 0.5 10*3/uL Low [facility] Lymphocytes/100 WBC (Bld) 7 % [facility] MCH (RBC) [Entitic mass] 30.6 pg 26.0 - 34.[address] [facility] MCHC (RBC) [Mass/Vol] 31.5 g/dL 30.5 - 36.0 g/dL [facility] MCV (RBC) [Entitic vol] 97.2 fL 80.0 - 100.[address] [facility] Monocytes (Bld) [#/Vol] 0.52 10*3/uL NINF [facility] Monocytes/100 WBC (Bld) 7.3 % [facility] Neutrophils (Bld) [#/Vol] 6 10*3/uL [facility] Neutrophils/100 WBC (Bld) 84.5 % [facility] Nucleated RBC (Bld) [#/Vol] NINF [facility] Nucleated RBC/100 WBC (Bld) [Ratio] 0 % /[address] [facility] Platelet mean volume (Bld) [Entitic vol] 9.8 fL 9.0 - 12.[address] [facility] Platelets (Bld) [#/Vol] 141 10*3/uL Low [facility] RBC (Bld) [#/Vol] 3.59 10*6/uL Low 3.90 - 5.2 0 m/uL [facility] WBC (Bld) [#/Vol] 7.11 10*3/uL [facility] Comprehensive metabolic 2000 panelOrdered By: Pam Tate on 06-11-2024 Albumin [Mass/Vol] 3.5 g/dL Low 3.9 - 4.9 g/dL [facility] ALP [Catalytic activity/Vol] 64 U/L 34 - 123 U/L [facility] ALT [Catalytic activity/Vol] 26 U/L 7 - 38 U/L [facility] Anion gap [Moles/Vol] 11 mmol/L 8 - 15 mmol/L [facility] AST [Catalytic activity/Vol] 28 U/L 13 - 35 U/L [facility] Bilirubin [Mass/Vol] 0.6 mg/dL 0.2 - 1 .3 mg/dL [facility] Calcium [Mass/Vol] 9.1 mg/dL 8.5 - 10. 2 mg/dL [facility] Chloride [Moles/Vol] 104 mmol/L 98 - 10 7 mmol/L [facility] CO2 [Moles/Vol] 23 mmol/L 22 - 30 mmol/L [facility] Creatinine [Mass/Vol] 0.59 mg/dL 0.58 - 0.96 mg/dL [facility] GFR/1.73 sq M.predicted among non-blacks MDRD (S/P/Bld) [Vol rate/Area] 87 mL/min/{1.73_m2} - PINF [facility] Comment on above: Estimated Glomerular Filtration Rate (eGFR) is calculated using the 2020 CKD-EPI creatinine equation. This equation utilizes serum creatinine, sex, and age as parameters. The creatinine assay has traceable calibration to isotope dilution-mass spectrometry. Refer to KDIGO guidelines for clinical interpretation. In patients with unstable renal function, e.g. those with acute kidney injury, the eGFR may not accurately reflect actual GFR. Glucose [Mass/Vol] 240 mg/dL High 74 - 99 mg/dL [facility] Comment on above: The [place] Diabete s Association (ADA) provides guidance for cutoff values for fasting glucose and random glucose. The ADA defines fasting as no [...] Standards of Medical Care in Diabetes 2016, [place] Diabetes Association. Diabetes Care. 2016.39(Suppl 1). Interpretation and review of laboratory results Abnormal [facility] Potassium [Moles/Vol] 4.4 mmol/L 3.7 - 5.1 mmol/L [facility] Protein [Mass/Vol] 7.3 g/dL 6.3 - 8.0 g/dL [facility] Sodium [Moles/Vol] 138 mmol/L 136 - 144 mmol/L [facility] Urea nitrogen [Mass/Vol] 18 mg/dL 7 - 21 mg/dL [facility] Absolute lymphocyte countOrd ered By: Reji Reyna on 05-31-2024 Lymphocytes Auto (Unsp spec) [#/Vol] 1.03 10*3/uL 0.83-4.51 [facility] Absolute neutrophil countOrd ered By: Reji Reyna on 05-31-2024 Neutrophils (Bld) [#/Vol] 3.8 10*3/uL 2.0-7.7 [facility] Anion gap in Serum or Plasma Ordered By: Reji Reyna on 05-31-2024 Anion gap [Moles/Vol] 9 mmol/L 5-15 [facility] Automated lymphocyte count a s percentage of total leukocytesOrdered By: Angelitomerylmichaelgarfield Herronrejialyssa on 05-31-2024 Lymphocytes/100 WBC Auto (Unsp spec) 18.6 % Low 19-41 [facility] BUN/creatinine ratioOrdered By: Efmerylmichaelgarfield Herronrejie on 05-31-2024 Urea nitrogen/Creatinine [Mass ratio] 23.4 mg/mg High 10-20 [facility] Basophil percentageOrdered B y: Efarline Gopalrejie on 05-31-2024 Basophils/100 WBC (Bld) 0.5 % 0-1 [facility] Bilirubin, totalOrdered By: Reji Herronrejialyssa on 05-31-2024 Bilirubin [Mass/Vol] 0.51 mg/dL 0.00-1.30 [facility] Carbon dioxide, total [Moles /volume] in Central venous bloodOrdered By: Reji Herronrejialyssa on 05-31-2024 CO2 [Moles/Vol] 23.7 mmol/L 21.0-32.0 [facility] Chloride assayOrdered By: Angelito brunildagarfield Herronrejialyssa on 05-31-2024 Chloride [Moles/Vol] 105 mmol/L 98-108 [facility] Eosinophil percentageOrdered By: Reji Ramireze on 05-31-2024 Eosinophils/100 WBC (Bld) 1.3 % 0-5 [facility] Erythrocyte distribution wid th (RBC) [Ratio]Ordered By: Jasongbe Gopalrejie on 05-31-2024 Erythrocyte distribution width (RBC) [Entitic vol] 56.2 fL High 35.1-43.9 [facility] Erythrocyte distribution wid th ratioOrdered By: Efmerylongbe Gopalrejie on 05-31-2024 Erythrocyte distribution width (RBC) [Ratio] 15.9 % High 11.6-14.6 [facility] Erythrocyte distribution wid th standard deviationOrdered By: Jamisonbe Gopalrejie on 05-31-2024 Erythrocyte distribution width (RBC) [Ratio] 56.2 fl High 35.1-43.9 [facility] GFR/1.73 sq M.predicted lei g non-blacks MDRD (S/P/Bld) [Vol rate/Area]Ordered By: Reji Reyna on 05-31-2024 Estimated GFR (MDRD) Non-Af Amer 85 >60 [facility] Comment on above: mL/min/1.73m2 CKD-EP I Creatinine Equation (2020) Glomerular filtration rate ( GFR) estimation/1.73 sq m using serum, plasma, or whole bOrdered By: Reji Reyna on 05-31-2024 GFR/1.73 sq M.predicted among non-blacks MDRD (S/P/Bld) [Vol rate/Area] 85 mL/min/{1.73_m2} >60 [facility] Comment on above: mL/min/1.73m2 CKD-EP I Creatinine Equation (2020) Hematocrit Auto (Bld) [Volum e fraction]Ordered By: Reji Reyna on 05-31-2024 Hematocrit (Bld) [Volume fraction] 30.7 % Low 37-47 [facility] Hemoglobin measurementOrdere d By: Reji Reyna on 05-31-2024 Hemoglobin (Bld) [Mass/Vol] 9.7 g/dL Low 12.0-15.0 [facility] Immature granulocytes/100 WB C Auto (Bld)Ordered By: Reji Reyna on 05-31-2024 Immature granulocytes/100 WBC (Bld) 0.400 % 0.0-0.9 [facility] Comment on above: IG% - Immature Granu locytes (promyelocytes, myelocytes and metamyelocytes) > 1% indicates that a LEFT SHIFT is Present. Laboratory - Chemistry and C hemistry - challengeOrdered By: Reji Reyna on 05-31-2024 AST [Catalytic activity/Vol] 29 U/L <32 [facility] Lymphocytes Auto (Unsp spec) [#/Vol]Ordered By: Reji Reyna on 05-31-2024 Lymphocytes (Bld) [#/Vol] 1.03 10*3/uL 0.83-4.51 [facility] Lymphocytes/100 WBC Auto (Un sp spec)Ordered By: Reji Reyna on 05-31-2024 Lymphocytes/100 WBC (Bld) 18.6 % Low 19-41 [facility] MCV (mean corpuscular volume ) determinationOrdered By: Reji Reyna on 05-31-2024 MCV (RBC) [Entitic vol] 96.8 fL 81-99 [facility] Mean corpuscular hemoglobin (MCH) determinationOrdered By: Reji Reyna on 05-31-2024 MCH (RBC) [Entitic mass] 30.6 pg 27.0-32.0 [facility] Mean corpuscular hemoglobin concentration (MCHC) determinationOrdered By: Reji Reyna on 05-31-2024 MCHC (RBC) [Mass/Vol] 31.6 g/dL Low 32-36 [facility] Mean platelet volume determi nationOrdered By: Reji Reyna on 05-31-2024 Platelet mean volume (Bld) [Entitic vol] 9.8 fL 6.2-12.0 [facility] Monocyte percentageOrdered B y: Reji Reyna on 05-31-2024 Monocytes/100 WBC (Bld) 10.3 % High 0-10 [facility] Neutrophil percentageOrdered By: Reji Reyna on 05-31-2024 Neutrophils/100 WBC (Bld) 68.9 % 47-70 [facility] Nucleated red blood cell per centageOrdered By: Reji Reyna on 05-31-2024 Nucleated RBC/100 WBC (Bld) [Ratio] 0 % 0-5 [facility] Platelet countOrdered By: Angelito Reyna on 05-31-2024 Platelets (Bld) [#/Vol] 126 10*3/uL Low 150-450 [facility] Potassium (Unsp spec) [Mass/ Vol]Ordered By: Reji Reyna on 05-31-2024 Potassium [Moles/Vol] 4.0 mmol/L 3.3-5.1 [facility] Potassium measurement (mass/ volume)Ordered By: Reji Reyna on 05-31-2024 Potassium (Unsp spec) [Mass/Vol] 4.0 mmol/L 3.3-5.1 [facility] RBC Auto (Bld) [#/Vol]Ordere d By: Reji Reyna on 05-31-2024 RBC (Bld) [#/Vol] 3.17 10*6/uL Low 4.2-5.4 [place] Serum creatinine measurement (mass/volume)Ordered By: Reji Reyna on 05-31-2024 Creatinine [Mass/Vol] 0.65 mg/dL Low 0.70-1.20 [facility] Serum globulin measurementOr dered By: Reji Reyna on 05-31-2024 Globulin (S) [Mass/Vol] 3.4 g/dL 2.2-4.2 [facility] Serum glucose measurement (m ass/volume)Ordered By: Reji Reyna on 05-31-2024 Glucose [Mass/Vol] 76 mg/dL 70-99 [facility] Serum or plasma alanine cheatham otransferase (ALT) measurementOrdered By: Reji Reyna on 05-31-2024 ALT [Catalytic activity/Vol] 29 U/L <35 [facility] Serum or plasma albumin yonatan urement (mass/volume)Ordered By: Reji Reyna on 05-31-2024 Albumin [Mass/Vol] 3.1 g/dL Low 3.4-4.8 [facility] Serum or plasma albumin/glob ulin mass ratioOrdered By: Reji Reyna 05-31-2024 Albumin/Globulin [Mass ratio] 0.9 {ratio} 0.9-2.4 [facility] Serum or plasma alkaline shannon sphatase measurementOrdered By: Reji Reyna 05-31-2024 ALP [Catalytic activity/Vol] 49 U/L 35-104 [facility] Serum or plasma calcium yonatan urement (mass/volume)Ordered By: Reji Reyna 05-31-2024 Calcium [Mass/Vol] 9.0 mg/dL 7.6-11.0 [facility] Serum or plasma urea nitroge n measurement (mass/volume)Ordered By: Reji Reyna on 05-31-2024 Urea nitrogen [Mass/Vol] 15 mg/dL 4-19 [facility] Sodium levelOrdered By: Jas ailyn Maribell on 05-31-2024 Sodium [Moles/Vol] 138 mmol/L 133-145 [facility] Total proteinOrdered By: Fredy edwardogarfield Reyna on 05-31-2024 Protein [Mass/Vol] 6.5 g/dL 5.9-8.4 [facility] Vitamin D, 25-hydroxyOrdered By: Reji Reyna on 05-31-2024 Vitamin D 25-Hydroxy 32.7 ng/mL 30-100 [facility] Comment on above: Vitamin D StatusDefi ciency: <20 ng/mL (50nmol/L)Insufficiency: 20-30 ng/mL (50-75 nmol/L)Sufficiency: 30-100 ng/mL (75-250 nmol/L)Toxicity: >100 ng/mL (>250 nmol/L) White blood cell (WBC) count Ordered By: Reji Reyna on 05-31-2024 WBC (Bld) [#/Vol] 5.6 10*3/uL 4.4-11.0 [facility] Bacteria LM.HPF (Urine sed) [#/Area]Ordered By: Reji Reyna on 05-13-2024 Urine Bacteria RARE /hpf None Seen [facility] Bilirubin Test strip Ql (U)O rdered By: Reji Reyna on 05-13-2024 Bilirubin Ql (U) Negative Negative [facility] Epithelial cells.squamous LM Ql (Urine sed)Ordered By: Reji Reyna on 05-13-2024 Epithelial cells.squamous LM.HPF (Urine sed) [#/Area] 0 /[HPF] 5-10 [facility] Glucose Ql (U)Ordered By: Angelito Reyna on 05-13-2024 Urine Glucose (UA) Normal mg/dl Normal [facility] Ketones Test strip Ql (U)Ord ered By: Reji Reyna on 05-13-2024 Ketones Ql (U) Negative Negative [facility] Microscopic analysis of urin e for red blood cells (RBC)Ordered By: Reji Reyna on 02-27-2025 Microscopic analysis of urine for red blood cells (RBC) 0-5 SEEN /hpf 0-5 [facility] Urine RBC 0-5 SEEN /hpf 0-5 [facility] Mucus LM Ql (Urine sed)Order ed By: Reji Reyna on 05-13-2024 Mucus Ql (Urine sed) 0 SEEN /hpf [facility] Nitrite Test strip Ql (U)Ord ered By: Reji Reyna on 05-13-2024 Nitrite Ql (U) Positive High Negative [facility] Protein Test strip Ql (U)Ord ered By: Reji Reyna on 05-13-2024 Protein Ql (U) Negative Negative [facility] Squamous epithelial cells de tection in urine sediment by light microscopyOrdered By: Reji Reyna on 05-13-2024 Epithelial cells.squamous LM Ql (Urine sed) 0-5 SEEN /hpf 5-10 [facility] Urine blood detectionOrdered By: Reji Reyna on 05-13-2024 Urine Occult Blood 10 /ul High Negative [facility] Urine clarityOrdered By: Fredy Reyna on 05-13-2024 Clarity (U) Clear Clear [facility] Urine color determinationOrd ered By: Reji Reyna on 05-13-2024 Color (U) Yellow Yellow [facility] Urine cultureOrdered By: Fredy Reyna on 05-13-2024 Bacteria identified Cx Nom (U) Escherichia coli Abnormal [facility] Urine glucose detectionOrder ed By: Reji Reyna on 05-13-2024 Glucose Ql (U) Normal mg/dl Normal [facility] Urine leukocyte esterase det ection by dipstickOrdered By: Reji Reyna on 05-13-2024 Leukocyte esterase Test strip Ql (U) 100 /ul High Negative [facility] Urine pHOrdered By: Deloris Reyna on 05-13-2024 pH (U) 6.5 [pH] 5.0 - 8.0 [facility] Urine sediment bacteria coun t by microscopy (number/high power field)Ordered By: Reji Reyna on 05-13-2024 Bacteria LM.HPF (Urine sed) [#/Area] RARE /hpf None Seen [facility] Urine specific gravity measu rementOrdered By: Reji Reyna on 05-13-2024 Specific gravity (U) [Rel density] 1.010 1.002-1.030 [facility] Urine urobilinogen measureme ntOrdered By: Reji Reyna on 05-13-2024 Urobilinogen Ql (U) Normal mg/dl Normal [facility] Urobilinogen Ql (U)Ordered B y: Reji Reyna on 05-13-2024 Urine Urobilinogen Normal mg/dl Normal [facility] White blood cell countOrdere d By: Reji Reyna on 05-13-2024 Urine WBC 0-5 SEEN /hpf 0-5 [facility] White blood cell count 0-5 SEEN /hpf 0-5 [facility] Absolute lymphocyte countOrd ered By: Reji Reyna on 05-03-2024 Lymphocytes Auto (Unsp spec) [#/Vol] 1.13 10*3/uL 0.83-4.51 [facility] Absolute neutrophil countOrd ered By: Reji Reyna on 05-03-2024 Neutrophils (Bld) [#/Vol] 5.1 10*3/uL 2.0-7.7 [facility] Albumin to globulin ratioOrd ered By: Reji Reyna on 05-03-2024 Albumin/Globulin [Mass ratio] 0.5 {ratio} Low 0.9-2.4 [facility] Automated lymphocyte count a s percentage of total leukocytesOrdered By: Reji Ramirezalyssa on 05-03-2024 Lymphocytes/100 WBC Auto (Unsp spec) 16.1 % Low 19-41 [facility] Basophil percentageOrdered B y: Reji Reyna on 05-03-2024 Basophils/100 WBC (Bld) 0.6 % 0-1 [facility] Bilirubin Test strip Ql (U)O rdered By: Reji Ramirezalyssa on 05-03-2024 Bilirubin Ql (U) Negative Negative [facility] Bilirubin, totalOrdered By: Reji Gopalrejialyssa on 05-03-2024 Bilirubin [Mass/Vol] 0.60 mg/dL 0.20-1.00 [facility] Comment on above: For patients on eltr ombopag therapy, use of Dimension Bath TBIL is not recommended. Blood urea nitrogen (BUN)/cr eatinine ratioOrdered By: Reji Reyna on 05-03-2024 Urea nitrogen/Creatinine [Mass ratio] 22.8 mg/mg High 10-20 [facility] Carbon dioxide measurementOr dered By: Reji Renya on 05-03-2024 CO2 [Moles/Vol] 26.0 mmol/L 21.0-32.0 [facility] Chloride measurementOrdered By: Reji Reyna on 05-03-2024 Chloride [Moles/Vol] 108 mmol/L High 98-107 [facility] Eosinophil percentageOrdered By: Reji Reyna on 05-03-2024 Eosinophils/100 WBC (Bld) 1.1 % 0-5 [facility] Erythrocyte distribution wid th (RBC) [Ratio]Ordered By: Reji Reyna on 05-03-2024 Erythrocyte distribution width (RBC) [Entitic vol] 62.4 fL High 35.1-43.9 [facility] Erythrocyte distribution wid th ratioOrdered By: Reji Reyna on 05-03-2024 Erythrocyte distribution width (RBC) [Ratio] 17.4 % High 11.6-14.6 [facility] Erythrocyte distribution wid th standard deviationOrdered By: Reji Reyna on 05-03-2024 Erythrocyte distribution width (RBC) [Ratio] 62.4 fl High 35.1-43.9 [facility] Estimated glomerular filtrat ion rate (GFR) AmericanOrdered By: Reji Reyna on 05-03-2024 Estimated GFR (MDRD) Amer 95 mL/min >60 [facility] Comment on above: GFR Calc Glomerular filtration rate ( GFR) estimationOrdered By: Reji Reyna on 05-03-2024 Estimated GFR (MDRD) Non-Af Amer 78 mL/min >60 [facility] Comment on above: Non- GFR Calc GFR/1.73 sq M.predicted among non-blacks MDRD (S/P/Bld) [Vol rate/Area] 78 mL/min/{1.73_m2} >60 [facility] Comment on above: Non- GFR Calc Glucose Ql (U)Ordered By: Angelito Reyna on 05-03-2024 Urine Glucose (UA) Normal mg/dl Normal [facility] Glucose measurementOrdered B y: Reji Reyna on 05-03-2024 Glucose [Mass/Vol] 69 mg/dL Low 74-106 [facility] Hematocrit Auto (Bld) [Volum e fraction]Ordered By: Reji Reyna on 05-03-2024 Hematocrit (Bld) [Volume fraction] 29.8 % Low 37-47 [facility] Hemoglobin measurementOrdere d By: Reji Reyna on 05-03-2024 Hemoglobin (Bld) [Mass/Vol] 9.1 g/dL Low 12.0-15.0 [facility] Immature granulocytes/100 WB C Auto (Bld)Ordered By: Reji Reyna on 05-03-2024 Immature granulocytes/100 WBC (Bld) 0.400 % 0.0-0.9 [facility] Comment on above: IG% - Immature Granu locytes (promyelocytes, myelocytes and metamyelocytes) > 1% indicates that a LEFT SHIFT is Present. Ketones Test strip Ql (U)Ord ered By: Reji Reyna on 05-03-2024 Ketones Ql (U) Negative Negative [facility] Laboratory - Chemistry and C hemistry - challengeOrdered By: Reji Reyna on 05-03-2024 AST [Catalytic activity/Vol] 34 U/L 15-37 [facility] Lymphocytes Auto (Unsp spec) [#/Vol]Ordered By: Reji Reyna on 05-03-2024 Lymphocytes (Bld) [#/Vol] 1.13 10*3/uL 0.83-4.51 [facility] Lymphocytes/100 WBC Auto (Un sp spec)Ordered By: Reji Reyna on 05-03-2024 Lymphocytes/100 WBC (Bld) 16.1 % Low 19-41 [facility] MCV (mean corpuscular volume ) determinationOrdered By: Reji Reyna on 05-03-2024 MCV (RBC) [Entitic vol] 99.0 fL 81-99 [facility] Mean corpuscular hemoglobin (MCH) determinationOrdered By: Reji Reyna on 05-03-2024 MCH (RBC) [Entitic mass] 30.2 pg 27.0-32.0 [facility] Mean corpuscular hemoglobin concentration (MCHC) determinationOrdered By: Reji Reyna on 05-03-2024 MCHC (RBC) [Mass/Vol] 30.5 g/dL Low 32-36 [facility] Mean platelet volume determi nationOrdered By: Reji Reyna on 05-03-2024 Platelet mean volume (Bld) [Entitic vol] 9.4 fL 6.2-12.0 [facility] Monocyte percentageOrdered B y: Reji Reyna on 05-03-2024 Monocytes/100 WBC (Bld) 9.7 % 0-10 [facility] Neutrophil percentageOrdered By: Reji Reyna on 05-03-2024 Neutrophils/100 WBC (Bld) 72.1 % High 47-70 [facility] Nitrite Test strip Ql (U)Ord ered By: Reji Reyna on 05-03-2024 Nitrite Ql (U) Negative Negative [facility] Nucleated red blood cell per centageOrdered By: Reji Reyna on 05-03-2024 Nucleated RBC/100 WBC (Bld) [Ratio] 0 % 0-5 [facility] Platelet countOrdered By: Angelito Reyna on 05-03-2024 Platelets (Bld) [#/Vol] 163 10*3/uL 150-450 [facility] Potassium measurementOrdered By: Reji Reyna on 05-03-2024 Potassium [Moles/Vol] 4.3 mmol/L 3.5-5.1 [facility] Protein Test strip Ql (U)Ord ered By: Reji Reyna on 05-03-2024 Protein Ql (U) Negative Negative [facility] RBC Auto (Bld) [#/Vol]Ordere d By: Reji Reyna on 05-03-2024 RBC (Bld) [#/Vol] 3.01 10*6/uL Low 4.2-5.4 [place] Serum anion gap measurementO rdered By: Reji Reyna on 05-03-2024 Anion gap [Moles/Vol] 7 mmol/L 5-15 [facility] Serum globulin measurementOr dered By: Reji Reyna on 05-03-2024 Globulin (S) [Mass/Vol] 4.8 g/dL High 2.2-4.2 [facility] Serum or plasma alanine cheatham otransferase (ALT) measurementOrdered By: Reji Reyna on 05-03-2024 ALT [Catalytic activity/Vol] 31 U/L 13-56 [facility] Serum or plasma albumin yonatan urement (mass/volume)Ordered By: Reji Reyna on 05-03-2024 Albumin [Mass/Vol] 2.3 g/dL Low 3.2-5.0 [facility] Serum or plasma alkaline shannon sphatase measurementOrdered By: Reji Reyna on 05-03-2024 ALP [Catalytic activity/Vol] 57 U/L 45-117 [facility] Serum or plasma calcium yonatan urement (mass/volume)Ordered By: Reji Reyna on 05-03-2024 Calcium [Mass/Vol] 8.9 mg/dL 8.5-10.1 [facility] Serum or plasma creatinine m easurement (mass/volume)Ordered By: Reji Reyna on 05-03-2024 Creatinine [Mass/Vol] 0.74 mg/dL 0.55-1.02 [facility] Comment on above: The validity of the calculated GFR & GFRAA in patients over 70 years has not been determined. Clinical correlation is essential. Serum or plasma thyroid stim ulating hormone (TSH) measurement (units/volume)Ordered By: Reji Reyna on 05-03-2024 TSH Qn 1.850 uIU/mL 0.358-3.740 [facility] Serum or plasma urea nitroge n measurement (mass/volume)Ordered By: Reji Reyna on 05-03-2024 Urea nitrogen [Mass/Vol] 17 mg/dL 7-18 [facility] Sodium levelOrdered By: Jas Reyna on 05-03-2024 Sodium [Moles/Vol] 141 mmol/L 136-145 [facility] TSH QnOrdered By: Reji Reyna on 05-03-2024 Thyroid Stimulating Hormone (TSH) 1.850 uIU/mL 0.358-3.740 [facility] Total proteinOrdered By: Fredy Reyna on 05-03-2024 Protein [Mass/Vol] 7.1 g/dL 6.4-8.2 [facility] Urine blood detectionOrdered By: Reji Reyna on 05-03-2024 Urine Occult Blood 50 /ul High Negative [facility] Urine clarityOrdered By: Fredy Reyna on 05-03-2024 Clarity (U) Sl. Cloudy Clear [facility] Urine color determinationOrd ered By: Reji Reyna on 05-03-2024 Color (U) Yellow Yellow [facility] Urine cultureOrdered By: Fredy Reyna on 05-03-2024 Bacteria identified Cx Nom (U) Presumptive E. coli Abnormal [facility] Urine glucose detectionOrder ed By: Reji Reyna on 05-03-2024 Glucose Ql (U) Normal mg/dl Normal [facility] Urine leukocyte esterase det ection by dipstickOrdered By: Reji Reyna on 05-03-2024 Leukocyte esterase Test strip Ql (U) 500 /ul High Negative [facility] Urine pHOrdered By: Deloris Reyna on 05-03-2024 pH (U) 6.5 [pH] 5.0 - 8.0 [facility] Urine specific gravity measu rementOrdered By: Reji Reyna on 05-03-2024 Specific gravity (U) [Rel density] 1.010 1.002-1.030 [facility] Urine urobilinogen measureme ntOrdered By: Reji Reyna on 05-03-2024 Urobilinogen Ql (U) Normal mg/dl Normal [facility] Urobilinogen Ql (U)Ordered B y: Reji Reyna on 05-03-2024 Urine Urobilinogen Normal mg/dl Normal [facility] White blood cell (WBC) count Ordered By: Reji Reyna on 05-03-2024 WBC (Bld) [#/Vol] 7.0 10*3/uL 4.4-11.0 [facility] Copper, serumOrdered By: Fredy Reyna on 04-23-2024 Serum Copper 93 ug/dL 80-158 [facility] Comment on above: Detection Limit = 5P erformed at: [facility] [id number] Director: Jeremiah Bates MD, Phone: [phone] Absolute lymphocyte countOrd ered By: Reji Reyna on 04-05-2024 Lymphocytes Auto (Unsp spec) [#/Vol] 0.90 10*3/uL 0.83-4.51 [facility] Absolute neutrophil countOrd ered By: Rjei Reyna on 04-05-2024 Neutrophils (Bld) [#/Vol] 3.6 10*3/uL 2.0-7.7 [facility] Albumin to globulin ratioOrd ered By: Reji Reyna on 04-05-2024 Albumin/Globulin [Mass ratio] 0.5 {ratio} Low 0.9-2.4 [facility] Automated lymphocyte count a s percentage of total leukocytesOrdered By: Reji Reyna on 04-05-2024 Lymphocytes/100 WBC Auto (Unsp spec) 17.3 % Low 19-41 [facility] Basophil percentageOrdered B y: Reji Reyna on 04-05-2024 Basophils/100 WBC (Bld) 0.8 % 0-1 [facility] Bilirubin, totalOrdered By: Reji Reyna on 04-05-2024 Bilirubin [Mass/Vol] 0.60 mg/dL 0.20-1.00 [facility] Comment on above: For patients on eltr ombopag therapy, use of Dimension Bath TBIL is not recommended. Blasts/100 WBC (Bld)Ordered By: Jasongbe Jamese on 04-05-2024 Blast Cells % 0.04 % High 0-0 [facility] Blood band neutrophil count as percentage of total leukocytesOrdered By: Efewongbe Oleghe on 04-05-2024 Band form neutrophils/100 WBC (Bld) 0.04 % 0-5 [facility] Blood basophils/100 leukocyt esOrdered By: Efewongbe Oleghe on 04-05-2024 Basophils/100 WBC (Bld) 0.04 % 0-1 [facility] Blood blasts/100 leukocytesO rdered By: Efewongbe Gopalghe on 04-05-2024 Blasts/100 WBC (Bld) 0.04 % High 0-0 [facility] Blood eosinophils/100 leukoc ytesOrdered By: Efewongbe Oleghe on 04-05-2024 Eosinophils/100 WBC (Bld) 0.04 % 0-5 [facility] Blood leukocytes other/100 l eukocytesOrdered By: Efewongbe Jamese on 04-05-2024 WBC other/100 WBC (Bld) 0.04 % [facility] Blood lymphocytes/100 leukoc ytesOrdered By: Efmerylongbe Jamese on 04-05-2024 Lymphocytes/100 WBC (Bld) 0.04 % Low 19-41 [facility] Blood manual differential co mment interpretation (narrative result)Ordered By: Jasongbe Jamese on 04-05-2024 Manual differential comment [place] (Bld) [Interp] SCANNED [facility] Blood metamyelocytes/100 bailee kocytesOrdered By: Efewongbe Oleghe on 04-05-2024 Metamyelocytes/100 WBC (Bld) 0.04 % 0-1 [facility] Blood monocytes/100 leukocyt esOrdered By: Efewongbe Oleghe on 04-05-2024 Monocytes/100 WBC (Bld) 0.04 % 0-10 [facility] Blood promyelocytes/100 leuk ocytesOrdered By: Efewongbe Oleghe on 04-05-2024 Promyelocytes/100 WBC (Bld) 0.04 % High 0-0 [facility] Blood segmented neutrophils/ 100 leukocytesOrdered By: Efewongbe Oleghe on 04-05-2024 Segmented neutrophils/100 WBC (Bld) 0.04 % Low 47-70 [facility] Blood urea nitrogen (BUN)/cr eatinine ratioOrdered By: Reji Reyna on 04-05-2024 Urea nitrogen/Creatinine [Mass ratio] 23.3 mg/mg High 10-20 [facility] Carbon dioxide measurementOr dered By: Reji Reyna on 04-05-2024 CO2 [Moles/Vol] 27.0 mmol/L 21.0-32.0 [facility] Cells counted Molgen (Bld/Ti ss) [#]Ordered By: Reji Reyna on 04-05-2024 Differential Total Cells Counted 0.04 MANUAL DIFF [facility] Chloride measurementOrdered By: Reji Reyna on 04-05-2024 Chloride [Moles/Vol] 108 mmol/L High 98-107 [facility] Eosinophil percentageOrdered By: Reji Reyna on 04-05-2024 Eosinophils/100 WBC (Bld) 1.3 % 0-5 [facility] Erythrocyte distribution wid th (RBC) [Ratio]Ordered By: Reji Reyna on 04-05-2024 Erythrocyte distribution width (RBC) [Entitic vol] 67.1 fL High 35.1-43.9 [facility] Erythrocyte distribution wid th ratioOrdered By: Reji Reyna on 04-05-2024 Erythrocyte distribution width (RBC) [Ratio] 18.7 % High 11.6-14.6 [facility] Erythrocyte distribution wid th standard deviationOrdered By: Reji Reyna on 04-05-2024 Erythrocyte distribution width (RBC) [Ratio] 67.1 fl High 35.1-43.9 [facility] Estimated glomerular filtrat ion rate (GFR) AmericanOrdered By: Reji Reyna on 04-05-2024 Estimated GFR (MDRD) Amer 104 mL/min >60 [facility] Comment on above: GFR Calc Glomerular filtration rate ( GFR) estimationOrdered By: Reji Reyna on 04-05-2024 Estimated GFR (MDRD) Non-Af Amer 86 mL/min >60 [facility] Comment on above: Non- GFR Calc GFR/1.73 sq M.predicted among non-blacks MDRD (S/P/Bld) [Vol rate/Area] 86 mL/min/{1.73_m2} >60 [facility] Comment on above: Non- GFR Calc Glucose measurementOrdered B y: Reji Reyna on 04-05-2024 Glucose [Mass/Vol] 70 mg/dL Low 74-106 [facility] Hematocrit Auto (Bld) [Volum e fraction]Ordered By: arline Reyna on 04-05-2024 Hematocrit (Bld) [Volume fraction] 26.8 % Low 37-47 [facility] Hemoglobin measurementOrdere d By: Reji Reyna on 04-05-2024 Hemoglobin (Bld) [Mass/Vol] 8.9 g/dL Low 12.0-15.0 [facility] Immature granulocytes/100 WB C Auto (Bld)Ordered By: Reji Reyna on 04-05-2024 Immature granulocytes/100 WBC (Bld) 0.600 % 0.0-0.9 [facility] Comment on above: IG% - Immature Granu locytes (promyelocytes, myelocytes and metamyelocytes) > 1% indicates that a LEFT SHIFT is Present. Laboratory - Chemistry and C hemistry - challengeOrdered By: arline Reyna on 04-05-2024 AST [Catalytic activity/Vol] 33 U/L 15-37 [facility] Laboratory - Hematology and Cell countsOrdered By: Reji Reyna on 04-05-2024 Anisocytosis Ql (Bld) 2+ [facility] Lymphocytes Auto (Unsp spec) [#/Vol]Ordered By: arline Reyna on 04-05-2024 Lymphocytes (Bld) [#/Vol] 0.90 10*3/uL 0.83-4.51 [facility] Lymphocytes/100 WBC Auto (Un sp spec)Ordered By: Reji Reyna on 04-05-2024 Lymphocytes/100 WBC (Bld) 17.3 % Low 19-41 [facility] MCV (mean corpuscular volume ) determinationOrdered By: Reji Reyna on 04-05-2024 MCV (RBC) [Entitic vol] 99.6 fL High 81-99 [facility] Manual differential comment [place] (Bld) [Interp]Ordered By: Reji Reyna on 04-05-2024 Differential Comment SCANNED [facility] Mean corpuscular hemoglobin (MCH) determinationOrdered By: Reji Reyna on 04-05-2024 MCH (RBC) [Entitic mass] 33.1 pg High 27.0-32.0 [facility] Mean corpuscular hemoglobin concentration (MCHC) determinationOrdered By: Reji Reyna on 04-05-2024 MCHC (RBC) [Mass/Vol] 33.2 g/dL 32-36 [facility] Mean platelet volume determi nationOrdered By: Reji Reyna on 04-05-2024 Platelet mean volume (Bld) [Entitic vol] 9.9 fL 6.2-12.0 [facility] Monocyte percentageOrdered B y: Reji Reyna on 04-05-2024 Monocytes/100 WBC (Bld) 10.4 % High 0-10 [facility] Myelocyte %Ordered By: Matias Reyna on 04-05-2024 Myelocytes/100 WBC (Bld) 0.04 % High 0-0 [facility] Neutrophil percentageOrdered By: Reji Reyna on 04-05-2024 Neutrophils/100 WBC (Bld) 69.6 % 47-70 [facility] Nucleated red blood cell per centageOrdered By: Reji Reyna on 04-05-2024 Nucleated RBC/100 WBC (Bld) [Ratio] 0 % 0-5 [facility] Plasma cell percentageOrdere d By: Reji Reyna on 04-05-2024 Plasma Cells % (manual) 0.04 % [facility] Platelet countOrdered By: Angelito Reyna on 04-05-2024 Platelets (Bld) [#/Vol] 163 10*3/uL 150-450 [facility] Potassium measurementOrdered By: Reji Reyna on 04-05-2024 Potassium [Moles/Vol] 4.0 mmol/L 3.5-5.1 [facility] Promyelocytes/100 WBC (Bld)O rdered By: Reji Reyna on 04-05-2024 Promyelocytes % 0.04 % High 0-0 [facility] RBC Auto (Bld) [#/Vol]Ordere d By: Reji Reyna on 04-05-2024 RBC (Bld) [#/Vol] 2.69 10*6/uL Low 4.2-5.4 [place] Segmented neutrophils/100 WB C (Bld)Ordered By: Reji Reyna on 04-05-2024 Neutrophils/100 WBC (Bld) 0.04 % Low 47-70 [facility] Serum anion gap measurementO rdered By: Reji Reyna on 04-05-2024 Anion gap [Moles/Vol] 4 mmol/L Low 5-15 [facility] Serum globulin measurementOr dered By: Reji Reyna on 04-05-2024 Globulin (S) [Mass/Vol] 5.1 g/dL High 2.2-4.2 [facility] Serum or plasma alanine cheatham otransferase (ALT) measurementOrdered By: Reji Reyna on 04-05-2024 ALT [Catalytic activity/Vol] 28 U/L 13-56 [facility] Serum or plasma albumin yonatan urement (mass/volume)Ordered By: Reji Reyna on 04-05-2024 Albumin [Mass/Vol] 2.3 g/dL Low 3.2-5.0 [facility] Serum or plasma alkaline shannon sphatase measurementOrdered By: Reji Reyna on 04-05-2024 ALP [Catalytic activity/Vol] 64 U/L 45-117 [facility] Serum or plasma calcium yonatan urement (mass/volume)Ordered By: Reji Reyna on 04-05-2024 Calcium [Mass/Vol] 8.8 mg/dL 8.5-10.1 [facility] Serum or plasma creatinine m easurement (mass/volume)Ordered By: Reji Reyna on 04-05-2024 Creatinine [Mass/Vol] 0.69 mg/dL 0.55-1.02 [facility] Comment on above: The validity of the calculated GFR & GFRAA in patients over 70 years has not been determined. Clinical correlation is essential. Serum or plasma urea nitroge n measurement (mass/volume)Ordered By: Reji Reyna on 04-05-2024 Urea nitrogen [Mass/Vol] 16 mg/dL 7-18 [facility] Sodium levelOrdered By: Jas ailyn Maribell on 04-05-2024 Sodium [Moles/Vol] 139 mmol/L 136-145 [facility] Total cell countOrdered By: Reji Reyna on 04-05-2024 Cells counted Molgen (Bld/Tiss) [#] 0.04 MANUAL DIFF [facility] Total proteinOrdered By: Fredy edwardogarfield Reyna on 04-05-2024 Protein [Mass/Vol] 7.4 g/dL 6.4-8.2 [facility] WBC other/100 WBC (Bld)Order ed By: Reji Reyna on 04-05-2024 Other Cells % 0.04 % [facility] White blood cell (WBC) count Ordered By: Reji Reyna on 04-05-2024 WBC (Bld) [#/Vol] 5.2 10*3/uL 4.4-11.0 [facility] 10-TI-Jeentrb DOrdered By: Alyssa ginoailyn Reyna on 03-02-2024 Vitamin D 25-Hydroxy 35.7 ng/mL [facility] Comment on above: Vitamin D 25(OH) Sta tus Range Deficiency <20 ng/mL (50nmol/L) Insufficiency 20 - 30 ng/mL (50 - 75 nmol/L) Sufficiency 30 - 100 ng/mL (75 - 250 nmol/L) Toxicity >100 ng/mL (>250 nmol/L) Absolute neutrophil countOrd ered By: Reji Reyna on 03-01-2024 Neutrophils (Bld) [#/Vol] 4.2 10*3/uL 2.0-7.7 [facility] Albumin to globulin ratioOrd ered By: Reji Reyna on 03-01-2024 Albumin/Globulin [Mass ratio] 0.4 {ratio} Low 0.9-2.4 [facility] Basophil percentageOrdered B y: Reji Reyna on 03-01-2024 Basophils/100 WBC (Bld) 0.7 % 0-1 [facility] Bilirubin, totalOrdered By: Jamisongarfield Herronrejialyssa on 03-01-2024 Bilirubin [Mass/Vol] 0.50 mg/dL 0.20-1.00 [facility] Comment on above: For patients on eltr ombopag therapy, use of Dimension Bath TBIL is not recommended. Blood urea nitrogen (BUN)/cr eatinine ratioOrdered By: Reji Reyna on 03-01-2024 Urea nitrogen/Creatinine [Mass ratio] 20.9 mg/mg High 10-20 [facility] Carbon dioxide measurementOr dered By: Reji Herronrejialyssa on 03-01-2024 CO2 [Moles/Vol] 22.0 mmol/L 21.0-32.0 [facility] Chloride measurementOrdered By: Reji Herronrejialyssa on 03-01-2024 Chloride [Moles/Vol] 108 mmol/L High 98-107 [facility] Eosinophil percentageOrdered By: Jamisongarfield Herronrejialyssa on 03-01-2024 Eosinophils/100 WBC (Bld) 1.3 % 0-5 [facility] Erythrocyte distribution wid th (RBC) [Ratio]Ordered By: Reji Herronrejialyssa on 03-01-2024 Erythrocyte distribution width (RBC) [Entitic vol] 56.0 fL High 35.1-43.9 [facility] Erythrocyte distribution wid th ratioOrdered By: Reji Herronrejialyssa on 03-01-2024 Erythrocyte distribution width (RBC) [Ratio] 15.8 % High 11.6-14.6 [facility] Estimated glomerular filtrat ion rate (GFR) AmericanOrdered By: Reji Reyna on 03-01-2024 Estimated GFR (MDRD) Amer 107 mL/min >60 [facility] Comment on above: GFR Calc Glomerular filtration rate ( GFR) estimationOrdered By: Reji Reyna on 03-01-2024 Estimated GFR (MDRD) Non-Af Amer 88 mL/min >60 [facility] Comment on above: Non- GFR Calc Glucose measurementOrdered B y: Reji Reyna on 03-01-2024 Glucose [Mass/Vol] 68 mg/dL Low 74-106 [facility] Hematocrit Auto (Bld) [Volum e fraction]Ordered By: Reji Reyna on 03-01-2024 Hematocrit (Bld) [Volume fraction] 28.3 % Low 37-47 [facility] Hemoglobin measurementOrdere d By: Reji Reyna on 03-01-2024 Hemoglobin (Bld) [Mass/Vol] 8.3 g/dL Low 12.0-15.0 [facility] Immature granulocytes/100 WB C Auto (Bld)Ordered By: Reji Reyna on 03-01-2024 Immature granulocytes/100 WBC (Bld) 0.700 % 0.0-0.9 [facility] Comment on above: IG% - Immature Granu locytes (promyelocytes, myelocytes and metamyelocytes) > 1% indicates that a LEFT SHIFT is Present. Laboratory - Chemistry and C hemistry - challengeOrdered By: Reji Reyna on 03-01-2024 AST [Catalytic activity/Vol] 34 U/L 15-37 [facility] Lymphocytes Auto (Unsp spec) [#/Vol]Ordered By: Reji Reyna on 03-01-2024 Lymphocytes (Bld) [#/Vol] 1.02 10*3/uL 0.83-4.51 [facility] Lymphocytes/100 WBC Auto (Un sp spec)Ordered By: Reji Reyna on 03-01-2024 Lymphocytes/100 WBC (Bld) 16.9 % Low 19-41 [facility] MCV (mean corpuscular volume ) determinationOrdered By: Reji Reyna on 03-01-2024 MCV (RBC) [Entitic vol] 99.6 fL High 81-99 [facility] Mean corpuscular hemoglobin (MCH) determinationOrdered By: Reji Reyna on 03-01-2024 MCH (RBC) [Entitic mass] 29.2 pg 27.0-32.0 [facility] Mean corpuscular hemoglobin concentration (MCHC) determinationOrdered By: Reji Reyna on 03-01-2024 MCHC (RBC) [Mass/Vol] 29.3 g/dL Low 32-36 [facility] Mean platelet volume determi nationOrdered By: Efmerylonggarfield Reyna on 03-01-2024 Platelet mean volume (Bld) [Entitic vol] 10.1 fL 6.2-12.0 [facility] Monocyte percentageOrdered B y: Efarline Reyna on 03-01-2024 Monocytes/100 WBC (Bld) 11.9 % High 0-10 [facility] Neutrophil percentageOrdered By: Efmerylonggarfield Ramireze on 03-01-2024 Neutrophils/100 WBC (Bld) 68.5 % 47-70 [facility] Nucleated red blood cell per centageOrdered By: Reji Reyna on 03-01-2024 Nucleated RBC/100 WBC (Bld) [Ratio] 0.7 % 0-5 [facility] Platelet countOrdered By: Ef arline Reyna on 03-01-2024 Platelets (Bld) [#/Vol] 217 10*3/uL 150-450 [facility] Potassium measurementOrdered By: Reji Reyna on 03-01-2024 Potassium [Moles/Vol] 4.0 mmol/L 3.5-5.1 [facility] RBC Auto (Bld) [#/Vol]Ordere d By: Reji Reyna on 03-01-2024 RBC (Bld) [#/Vol] 2.84 10*6/uL Low 4.2-5.4 [place] Serum anion gap measurementO rdered By: Reji Reyna on 03-01-2024 Anion gap [Moles/Vol] 7 mmol/L 5-15 [facility] Serum globulin measurementOr dered By: Reji Reyna on 03-01-2024 Globulin (S) [Mass/Vol] 5.7 g/dL High 2.2-4.2 [facility] Serum or plasma alanine [place] otransferase (ALT) measurementOrdered By: Angelitomerylmichaelgarfield Herronrejialyssa on 03-01-2024 ALT [Catalytic activity/Vol] 19 U/L 13-56 [facility] Serum or plasma albumin yonatan urement (mass/volume)Ordered By: Reji Gopalrejialyssa on 03-01-2024 Albumin [Mass/Vol] 2.2 g/dL Low 3.2-5.0 [facility] Serum or plasma alkaline shannon sphatase measurementOrdered By: Jamisongarfield Herronrejialyssa on 03-01-2024 ALP [Catalytic activity/Vol] 63 U/L 45-117 [facility] Serum or plasma calcium yonatan urement (mass/volume)Ordered By: Jamisongarfield Herronrejialyssa on 03-01-2024 Calcium [Mass/Vol] 8.8 mg/dL 8.5-10.1 [facility] Serum or plasma creatinine m easurement (mass/volume)Ordered By: Angelitomerylailyn Gopalrejialyssa on 03-01-2024 Creatinine [Mass/Vol] 0.67 mg/dL 0.55-1.02 [facility] Comment on above: The validity of the calculated GFR & GFRAA in patients over 70 years has not been determined. Clinical correlation is essential. Serum or plasma urea nitroge n measurement (mass/volume)Ordered By: Angelitomerylmichaelgarfield Herronrejialyssa on 03-01-2024 Urea nitrogen [Mass/Vol] 14 mg/dL 7-18 [facility] Sodium levelOrdered By: Angelitomeryl ailyn Gopalrejialyssa on 03-01-2024 Sodium [Moles/Vol] 137 mmol/L 136-145 [facility] Total proteinOrdered By: Fredy ritter Gopalrejialyssa on 03-01-2024 Protein [Mass/Vol] 7.9 g/dL 6.4-8.2 [facility] White blood cell (WBC) count Ordered By: Angelitomerylailyn Gopalrejialyssa on 03-01-2024 WBC (Bld) [#/Vol] 6.1 10*3/uL 4.4-11.0 [facility] CBC W Auto Differential pane l (Bld)on 02-24-2024 Basophils (Bld) [#/Vol] 0.04 10*3/uL [facility] Basophils/100 WBC (Bld) 0.4 % [facility] Differential cell count method Nom (Bld) Auto [facility] Eosinophils (Bld) [#/Vol] 0.04 10*3/[facility] Eosinophils/100 WBC (Bld) 0.4 % [facility] Erythrocyte distribution width (RBC) [Ratio] 15.2 % High 11.5 - 15.0 % [facility] Hematocrit (Bld) [Volume fraction] 28.3 % Low 36.0 - 46.0 % [facility] Hemoglobin (Bld) [Mass/Vol] 8.5 g/dL Low 11.5 - 15.5 g/dL [facility] Immature granulocytes (Bld) [#/Vol] 0.05 10*3/uL [facility] Immature granulocytes/100 WBC (Bld) 0.5 % [facility] Interpretation and review of laboratory results Abnormal [facility] Lymphocytes (Bld) [#/Vol] 0.92 10*3/uL Low [facility] Lymphocytes/100 WBC (Bld) 9.7 % [facility] MCH (RBC) [Entitic mass] 28.1 pg 26.0 - 34.[address] [facility] MCHC (RBC) [Mass/Vol] 30.0 g/dL Low 30.5 - 36.0 g/dL [facility] MCV (RBC) [Entitic vol] 93.4 fL 80.0 - 100.[address] [facility] Monocytes (Bld) [#/Vol] 1.15 10*3/uL High [facility] Monocytes/100 WBC (Bld) 12.1 % [facility] Neutrophils (Bld) [#/Vol] 7.29 10*3/uL [facility] Neutrophils/100 WBC (Bld) 76.9 % [facility] Nucleated RBC (Bld) [#/Vol] [facility] Nucleated RBC/100 WBC (Bld) [Ratio] 0.0 % /[address] [facility] Platelet mean volume (Bld) [Entitic vol] 9.0 fL 9.0 - 12.[address] [facility] Platelets (Bld) [#/Vol] 243 10*3/uL [facility] RBC (Bld) [#/Vol] 3.03 10*6/uL Low 3.90 - 5.2 0 m/uL [facility] WBC (Bld) [#/Vol] 9.49 10*3/uL [facility] Comprehensive metabolic 2000 panelOrdered By: Pam Tate on 02-24-2024 Albumin [Mass/Vol] 3.0 g/dL Low 3.9 - 4.9 g/dL [facility] ALP [Catalytic activity/Vol] 69 U/L 34 - 123 U/L [facility] ALT [Catalytic activity/Vol] 13 U/L 7 - 38 U/L [facility] Anion gap [Moles/Vol] 10 mmol/L 8 - 15 mmol/L [facility] AST [Catalytic activity/Vol] 21 U/L 13 - 35 U/L [facility] Bilirubin [Mass/Vol] 0.6 mg/dL 0.2 - 1 .3 mg/dL [facility] Calcium [Mass/Vol] 8.6 mg/dL 8.5 - 10. 2 mg/dL [facility] Chloride [Moles/Vol] 101 mmol/L 98 - 10 7 mmol/L [facility] CO2 [Moles/Vol] 21 mmol/L Low 22 - 30 mmol/L [facility] Creatinine [Mass/Vol] 0.67 mg/dL 0.58 - 0.96 mg/dL [facility] GFR/1.73 sq M.predicted among non-blacks MDRD (S/P/Bld) [Vol rate/Area] 85 mL/min/{1.73_m2} - PINF [facility] Comment on above: Estimated Glomerular Filtration Rate (eGFR) is calculated using the 2020 CKD-EPI creatinine equation. This equation utilizes serum creatinine, sex, and age as parameters. The creatinine assay has traceable calibration to isotope dilution-mass spectrometry. Refer to KDIGO guidelines for clinical interpretation. In patients with unstable renal function, e.g. those with acute kidney injury, the eGFR may not accurately reflect actual GFR. Glucose [Mass/Vol] 162 mg/dL High 74 - 99 mg/dL [facility] Comment on above: The [place] Diabete s Association (ADA) provides guidance for cutoff values for fasting glucose and random glucose. The ADA defines fasting as no [...] Standards of Medical Care in Diabetes 2016, [place] Diabetes Association. Diabetes Care. 2016.39(Suppl 1). Interpretation and review of laboratory results Abnormal [facility] Potassium [Moles/Vol] 4.4 mmol/L 3.7 - 5.1 mmol/L [facility] Protein [Mass/Vol] 8.0 g/dL 6.3 - 8.0 g/dL [facility] Sodium [Moles/Vol] 132 mmol/L Low 136 - 144 mmol/L [facility] Urea nitrogen [Mass/Vol] 16 mg/dL 7 - 21 mg/dL [facility] ESR Westergren method (Bld) [Velocity]on 02-24-2024 ESR (Bld) [Velocity] 123 mm/h High [facility] Interpretation and review of laboratory results Abnormal [facility] CBC W Auto Differential pane l (Bld)on 11-25-2023 Basophils (Bld) [#/Vol] 0.03 10*3/uL [facility] Basophils/100 WBC (Bld) 0.6 % [facility] Differential cell count method Nom (Bld) Auto [facility] Eosinophils (Bld) [#/Vol] [facility] Eosinophils/100 WBC (Bld) 0.4 % [facility] Erythrocyte distribution width (RBC) [Ratio] 15.0 % 11.5 - 15.0 % [facility] Hematocrit (Bld) [Volume fraction] 29.7 % Low 36.0 - 46.0 % [facility] Hemoglobin (Bld) [Mass/Vol] 9.8 g/dL Low 11.5 - 15.5 g/dL [facility] Immature granulocytes (Bld) [#/Vol] [facility] Immature granulocytes/100 WBC (Bld) 0.4 % [facility] Interpretation and review of laboratory results Abnormal [facility] Lymphocytes (Bld) [#/Vol] 0.54 10*3/uL Low [facility] Lymphocytes/100 WBC (Bld) 10.4 % [facility] MCH (RBC) [Entitic mass] 33.0 pg 26.0 - 34.[address] [facility] MCHC (RBC) [Mass/Vol] 33.0 g/dL 30.5 - 36.0 g/dL [facility] MCV (RBC) [Entitic vol] 100.0 fL 80.0 - 100.[address] [facility] Monocytes (Bld) [#/Vol] 0.46 10*3/uL NINF [facility] Monocytes/100 WBC (Bld) 8.8 % [facility] Neutrophils (Bld) [#/Vol] 4.13 10*3/uL [facility] Neutrophils/100 WBC (Bld) 79.4 % [facility] Nucleated RBC (Bld) [#/Vol] NINF [facility] Nucleated RBC/100 WBC (Bld) [Ratio] 0.0 % /[address] [facility] Platelet mean volume (Bld) [Entitic vol] 8.9 fL Low 9.0 - 12.[address] [facility] Platelets (Bld) [#/Vol] 146 10*3/uL Low [facility] RBC (Bld) [#/Vol] 2.97 10*6/uL Low 3.90 - 5.2 0 m/uL [facility] WBC (Bld) [#/Vol] 5.20 10*3/uL [facility] Comprehensive metabolic 2000 panelOrdered By: Pam Tate on 11-25-2023 Albumin [Mass/Vol] 3.5 g/dL Low 3.9 - 4.9 g/dL [facility] ALP [Catalytic activity/Vol] 80 U/L 34 - 123 U/L [facility] ALT [Catalytic activity/Vol] 22 U/L 7 - 38 U/L [facility] Anion gap [Moles/Vol] 13 mmol/L 8 - 15 mmol/L [facility] AST [Catalytic activity/Vol] 31 U/L 13 - 35 U/L [facility] Bilirubin [Mass/Vol] 0.6 mg/dL 0.2 - 1 .3 mg[facility] Calcium [Mass/Vol] 9.3 mg/dL 8.5 - 10. 2 mg/dL [facility] Chloride [Moles/Vol] 105 mmol/L 98 - 10 7 mmol/L [facility] CO2 [Moles/Vol] 21 mmol/L Low 22 - 30 mmol/L [facility] Creatinine [Mass/Vol] 0.63 mg/dL 0.58 - 0.96 mg/dL [facility] GFR/1.73 sq M.predicted among non-blacks MDRD (S/P/Bld) [Vol rate/Area] 86 mL/min/{1.73_m2} - PINF [facility] Comment on above: Estimated Glomerular Filtration Rate (eGFR) is calculated using the 2020 CKD-EPI creatinine equation. This equation utilizes serum creatinine, sex, and age as parameters. The creatinine assay has traceable calibration to isotope dilution-mass spectrometry. Refer to KDIGO guidelines for clinical interpretation. In patients with unstable renal function, e.g. those with acute kidney injury, the eGFR may not accurately reflect actual GFR. Glucose [Mass/Vol] 148 mg/dL High 74 - 99 mg/dL [facility] Comment on above: The [place] Diabete s Association (ADA) provides guidance for cutoff values for fasting glucose and random glucose. The ADA defines fasting as no [...] Standards of Medical Care in Diabetes 2016, [place] Diabetes Association. Diabetes Care. 2016.39(Suppl 1). Interpretation and review of laboratory results Abnormal [facility] Potassium [Moles/Vol] 4.0 mmol/L 3.7 - 5.1 mmol/L [facility] Protein [Mass/Vol] 8.0 g/dL 6.3 - 8.0 g/dL [facility] Sodium [Moles/Vol] 139 mmol/L 136 - 144 mmol/L [facility] Urea nitrogen [Mass/Vol] 15 mg/dL 7 - 21 mg/dL [facility] ESR Westergren method (Bld) [Velocity]on 11-25-2023 ESR (Bld) [Velocity] 129 mm/h High [facility] Interpretation and review of laboratory results Abnormal [facility] CBC W Auto Differential pane l (Bld)on 08-19-2023 Basophils (Bld) [#/Vol] 0.05 10*3/uL [facility] Basophils/100 WBC (Bld) 0.6 % [facility] Differential cell count method Nom (Bld) Auto [facility] Eosinophils (Bld) [#/Vol] 0.07 10*3/uL [facility] Eosinophils/100 WBC (Bld) 0.8 % [facility] Erythrocyte distribution width (RBC) [Ratio] 14.6 % 11.5 - 15.0 % [facility] Hematocrit (Bld) [Volume fraction] 34.7 % Low 36.0 - 46.0 % [facility] Hemoglobin (Bld) [Mass/Vol] 11.6 g/dL 11.5 - 15.5 g/dL [facility] Immature granulocytes (Bld) [#/Vol] 0.03 10*3/uL [facility] Immature granulocytes/100 WBC (Bld) 0.4 % [facility] Interpretation and review of laboratory results Abnormal [facility] Lymphocytes (Bld) [#/Vol] 0.67 10*3/uL Low [facility] Lymphocytes/100 WBC (Bld) 8.1 % [facility] MCH (RBC) [Entitic mass] 33.1 pg 26.0 - 34.[address] [facility] MCHC (RBC) [Mass/Vol] 33.4 g/dL 30.5 - 36.0 g/dL [facility] MCV (RBC) [Entitic vol] 99.1 fL 80.0 - 100.[address] [facility] Monocytes (Bld) [#/Vol] 1.02 10*3/uL High [facility] Monocytes/100 WBC (Bld) 12.3 % [facility] Neutrophils (Bld) [#/Vol] 6.42 10*3/uL [facility] Neutrophils/100 WBC (Bld) 77.8 % [facility] Nucleated RBC (Bld) [#/Vol] [facility] Nucleated RBC/100 WBC (Bld) [Ratio] 0.0 % /[address] [facility] Platelet mean volume (Bld) [Entitic vol] 8.7 fL Low 9.0 - 12.[address] [facility] Platelets (Bld) [#/Vol] 169 10*3/uL [facility] RBC (Bld) [#/Vol] 3.50 10*6/uL Low 3.90 - 5.2 0 m/uL [facility] WBC (Bld) [#/Vol] 8.26 10*3/uL [facility] FERRITINon 08-19-2023 Ferritin [Mass/Vol] 147.0 ng/mL 14.7 - 205.1 ng/mL [facility] Ferritin [Mass/Vol]on 2023 Interpretation and review of laboratory results Normal [facility] Iron and Iron binding capaci ty panelon 08-19-2023 Interpretation and review of laboratory results Normal [facility] Iron [Mass/Vol] 87 ug/dL 41 - 186 ug/dL [facility] Iron binding capacity [Mass/Vol] 271 ug/dL 232 - 386 ug/dL [facility] Iron/TIBC [Molar ratio] 32.1 % 15.0 - 57.0 % [facility] C-REACTIVE PROTEINon 024 CRP [Mass/Vol] <0.9 mg/dL [facility] CBC W Auto Differential pane l (Bld)on 07-04-2023 Basophils (Bld) [#/Vol] <0.11 k/uL [facility] Basophils/100 WBC (Bld) 0.2 % [facility] Differential cell count method Nom (Bld) Auto [facility] Eosinophils (Bld) [#/Vol] 0.03 10*3/uL <0.46 k/uL [facility] Eosinophils/100 WBC (Bld) 0.3 % [facility] Erythrocyte distribution width (RBC) [Ratio] 14.8 % 11.5 - 15.0 % [facility] Hematocrit (Bld) [Volume fraction] 39.4 % 36.0 - 46.0 % [facility] Hemoglobin (Bld) [Mass/Vol] 13.2 g/dL 11.5 - 15.5 g/dL [facility] Immature granulocytes (Bld) [#/Vol] 0.06 10*3/uL <0.10 k/uL [facility] Immature granulocytes/100 WBC (Bld) 0.6 % [facility] Lymphocytes (Bld) [#/Vol] 0.84 10*3/uL Low 1.00 - 4.00 k/uL [facility] Lymphocytes/100 WBC (Bld) 8.1 % [facility] MCH (RBC) [Entitic mass] 33.0 pg 26.0 - 34.[address] [facility] MCHC (RBC) [Mass/Vol] 33.5 g/dL 30.5 - 36.0 g/dL [facility] MCV (RBC) [Entitic vol] 98.5 fL 80.0 - 100.[address] [facility] Monocytes (Bld) [#/Vol] 1.41 10*3/uL High <0.87 k/uL [facility] Monocytes/100 WBC (Bld) 13.6 % [facility] Neutrophils (Bld) [#/Vol] 8.02 10*3/uL High 1.45 - 7.50 k/uL [facility] Neutrophils/100 WBC (Bld) 77.2 % [facility] Nucleated RBC (Bld) [#/Vol] <0.01 k/uL [facility] Nucleated RBC/100 WBC (Bld) [Ratio] 0.0 /[address] [facility] Platelet mean volume (Bld) [Entitic vol] 9.4 fL 9.0 - 12.[address] [facility] Platelets (Bld) [#/Vol] 151 10*3/uL 150 - 400 k/uL [facility] RBC (Bld) [#/Vol] 4.00 10*6/uL 3.90 - 5.2 0 m/uL [facility] WBC (Bld) [#/Vol] 10.38 10*3/uL 3.70 - 11.00 k/uL [facility] Comprehensive metabolic 2000 panelon 07-04-2023 Albumin [Mass/Vol] 3.5 g/dL Low 3.9 - 4.9 g/dL [facility] ALP [Catalytic activity/Vol] 80 U/L 34 - 123 U/L [facility] ALT [Catalytic activity/Vol] 51 U/L High 7 - 38 U/L [facility] Anion gap [Moles/Vol] 9 mmol/L 9 - 18 mmol/L [facility] AST [Catalytic activity/Vol] 43 U/L High 13 - 35 U/L [facility] Bilirubin [Mass/Vol] 0.8 mg/dL 0.2 - 1 .3 mg/dL [facility] Calcium [Mass/Vol] 9.7 mg/dL 8.5 - 10. 2 mg/dL [facility] Chloride [Moles/Vol] 105 mmol/L 97 - 10 5 mmol/L [facility] CO2 [Moles/Vol] 24 mmol/L 22 - 30 mmol/L [facility] Creatinine [Mass/Vol] 0.73 mg/dL 0.58 - 0.96 mg/dL [facility] Estimated Glomerular Filtration Rate 80 mL/min/1.73m >=60 mL/min/1.[address] [facility] Glucose [Mass/Vol] 85 mg/dL 74 - 99 mg/dL [facility] Potassium [Moles/Vol] 4.5 mmol/L 3.7 - 5.1 mmol/L [facility] Protein [Mass/Vol] 7.4 g/dL 6.3 - 8.0 g/dL [facility] Sodium [Moles/Vol] 138 mmol/L 136 - 144 mmol/L [facility] Urea nitrogen [Mass/Vol] 19 mg/dL 7 - 21 mg/dL [facility] ESR Westergren method (Bld) [Velocity]on 07-04-2023 ESR (Bld) [Velocity] 49 mm/h High 0 - 20 mm/hr [facility] RHEUMATOID FACTORon 07-04-19 24 Rheumatoid factor Qn 439 [IU]/mL High <16 IU/mL [facility] Absolute lymphocyte countOrd ered By: Reji Reyna on 06-30-2023 Lymphocytes Auto (Unsp spec) [#/Vol] 1.25 10*3/uL 0.83-4.51 [facility] Automated lymphocyte count a s percentage of total leukocytesOrdered By: Reji Reyna on 06-30-2023 Lymphocytes/100 WBC Auto (Unsp spec) 21.3 % 19-41 [facility] Basophil percentageOrdered B y: Reji Reyna on 06-30-2023 Basophils/100 WBC (Bld) 0.7 % 0-1 [facility] Bilirubin [Mass/Vol] 0.80 mg/dL 0.20-1.00 [facility] Comment on above: For patients on eltr ombopag therapy, use of Dimension [place] TBIL is not recommended. Chloride [Moles/Vol] 110 mmol/L 98-107 [facility] Eosinophils/100 WBC (Bld) 1.5 % 0-5 [facility] Glucose [Mass/Vol] 74 mg/dL 74-106 [facility] Hemoglobin (Bld) [Mass/Vol] 11.0 g/dL 12.0-15.0 [facility] Monocytes/100 WBC (Bld) 11.9 % 0-10 [facility] Neutrophils (Bld) [#/Vol] 3.8 10*3/uL 2.0-7.7 [facility] Neutrophils/100 WBC (Bld) 64.1 % 47-70 [facility] Potassium [Moles/Vol] 4.0 mmol/L 3.5-5.1 [facility] Protein [Mass/Vol] 6.4 g/dL 6.4-8.2 [facility] Sodium [Moles/Vol] 142 mmol/L 136-145 [facility] WBC (Bld) [#/Vol] 5.9 10*3/uL 4.4-11.0 [facility] Determination of erythrocyte mean corpuscular volume (MCV)Ordered By: meryldeer parkgarfield Reyna on 06-30-2023 MCV (RBC) [Entitic vol] 102.1 fL 81-99 [facility] Erythrocyte distribution wid th ratioOrdered By: [facility] Gopalalyssa on 06-30-2023 Erythrocyte distribution width (RBC) [Ratio] 15.0 % 11.6-14.6 [facility] Erythrocyte distribution wid th standard deviationOrdered By: [facility] on 06-30-2023 Erythrocyte distribution width (RBC) [Entitic vol] 55.3 fL 35.1-43.9 [facility] Hematocrit Auto (Bld) [Volum e fraction]Ordered By: [facility] Gopalalyssa on 06-30-2023 Hematocrit (Bld) [Volume fraction] 34.2 % 37-47 [facility] Immature granulocytes/100 WB C Auto (Bld)Ordered By: [facility] Immature granulocytes/100 WBC (Bld) 0.500 % 0.0-0.9 [facility] Comment on above: IG% - Immature Granu locytes (promyelocytes, myelocytes and metamyelocytes) > 1% indicates that a LEFT SHIFT is Present. Laboratory - Chemistry and C hemistry - challengeOrdered By: Reji Reyna on 06-30-2023 Albumin/Globulin [Mass ratio] 0.6 {ratio} 0.9-2.4 [facility] ALP [Catalytic activity/Vol] 59 U/L 45-117 [facility] ALT [Catalytic activity/Vol] 31 U/L 13-56 [facility] CO2 [Moles/Vol] 27.0 mmol/L 21.0-32.0 [facility] Globulin (S) [Mass/Vol] 4.0 g/dL 2.2-4.2 [facility] Urea nitrogen/Creatinine [Mass ratio] 23.6 mg/mg 10-20 [facility] Laboratory - Hematology and Cell countsOrdered By: Reji Reyna on 06-30-2023 MCH (RBC) [Entitic mass] 32.8 pg 27.0-32.0 [facility] MCHC (RBC) [Mass/Vol] 32.2 g/dL 32-36 [facility] Nucleated RBC/100 WBC (Bld) [Ratio] 0 % 0-5 [facility] Platelet mean volume (Bld) [Entitic vol] 9.7 fL 6.2-12.0 [facility] Platelets (Bld) [#/Vol] 131 10*3/uL 150-450 [facility] No Panel InformationOrdered By: Reji Reyna on 06-30-2023 Estimated GFR (MDRD) Amer 123 mL/min >60 [facility] Comment on above: GFR Calc Estimated GFR (MDRD) Non-Af Amer 102 mL/min >60 [facility] Comment on above: Non- GFR Calc RBC Auto (Bld) [#/Vol]Ordere d By: Reji Reyna on 06-30-2023 RBC (Bld) [#/Vol] 3.35 10*6/uL 4.2-5.4 [place] Serum or plasma calcium yonatan urement (mass/volume)Ordered By: Reji Reyna on 06-30-2023 Calcium [Mass/Vol] 8.5 mg/dL 8.5-10.1 [facility] [place] or plasma creatinine m easurement (mass/volume)Ordered By: Reji Reyna on 06-30-2023 Creatinine [Mass/Vol] 0.59 mg/dL 0.55-1.02 [facility] Comment on above: The validity of the calculated GFR & GFRAA in patients over 70 years has not been determined. Clinical correlation is essential. Serum or plasma urea nitroge n measurement (mass/volume)Ordered By: Reji Reyna on 06-30-2023 Urea nitrogen [Mass/Vol] 14 mg/dL 7-18 [facility] Thin prep Papanicolaou smear with manual screeningOrdered By: arline Reyna on 06-30-2023 Thin prep Papanicolaou smear with manual screening 2.4 g/dL 3.2-5.0 [facility] Thin prep Papanicolaou smear with manual screening 27 U/L 15-37 [facility] Thin prep Papanicolaou smear with manual screening 5 5-15 [facility] Absolute lymphocyte countOrd ered By: Reji Reyna on 06-02-2023 Lymphocytes Auto (Unsp spec) [#/Vol] 1.12 10*3/uL 0.83-4.51 [facility] Automated lymphocyte count a s percentage of total leukocytesOrdered By: Reji Reyna on 06-02-2023 Lymphocytes/100 WBC Auto (Unsp spec) 18.1 % 19-41 [facility] Basophil percentageOrdered B y: Reji Reyna on 06-02-2023 Basophils/100 WBC (Bld) 0.5 % 0-1 [facility] Bilirubin [Mass/Vol] 0.60 mg/dL 0.20-1.00 [facility] Comment on above: For patients on eltr ombopag therapy, use of Dimension Bath TBIL is not recommended. Chloride [Moles/Vol] 110 mmol/L 98-107 [facility] Eosinophils/100 WBC (Bld) 1.5 % 0-5 [facility] Glucose [Mass/Vol] 76 mg/dL 74-106 [facility] Hemoglobin (Bld) [Mass/Vol] 11.3 g/dL 12.0-15.0 [facility] Monocytes/100 WBC (Bld) 9.5 % 0-10 [facility] Neutrophils (Bld) [#/Vol] 4.3 10*3/uL 2.0-7.7 [facility] Neutrophils/100 WBC (Bld) 69.9 % 47-70 [facility] Potassium [Moles/Vol] 4.1 mmol/L 3.5-5.1 [facility] Protein [Mass/Vol] 6.8 g/dL 6.4-8.2 [facility] Sodium [Moles/Vol] 140 mmol/L 136-145 [facility] WBC (Bld) [#/Vol] 6.2 10*3/uL 4.4-11.0 [facility] Determination of erythrocyte mean corpuscular volume (MCV)Ordered By: Reji Reyna on 06-02-2023 MCV (RBC) [Entitic vol] 101.2 fL 81-99 [facility] Erythrocyte distribution wid th ratioOrdered By: [facility] Herronalyssa on 06-02-2023 Erythrocyte distribution width (RBC) [Ratio] 14.1 % 11.6-14.6 [facility] Erythrocyte distribution wid th standard deviationOrdered By: [facility] Gopalalyssa on 06-02-2023 Erythrocyte distribution width (RBC) [Entitic vol] 52.1 fL 35.1-43.9 [facility] Hematocrit Auto (Bld) [Volum e fraction]Ordered By: [facility] Reyna on 06-02-2023 Hematocrit (Bld) [Volume fraction] 34.1 % 37-47 [facility] Immature granulocytes/100 WB C Auto (Bld)Ordered By: arline Reyna on 06-02-2023 Immature granulocytes/100 WBC (Bld) 0.500 % 0.0-0.9 [facility] Comment on above: IG% - Immature Granu locytes (promyelocytes, myelocytes and metamyelocytes) > 1% indicates that a LEFT SHIFT is Present. Laboratory - Chemistry and C hemistry - challengeOrdered By: Reji Reyna on 06-02-2023 Albumin/Globulin [Mass ratio] 0.5 {ratio} 0.9-2.4 [facility] ALP [Catalytic activity/Vol] 67 U/L 45-117 [facility] ALT [Catalytic activity/Vol] 25 U/L 13-56 [facility] CO2 [Moles/Vol] 26.0 mmol/L 21.0-32.0 [facility] Globulin (S) [Mass/Vol] 4.4 g/dL 2.2-4.2 [facility] Urea nitrogen/Creatinine [Mass ratio] 21.1 mg/mg 10-20 [facility] Laboratory - Hematology and Cell countsOrdered By: Reji Reyna on 06-02-2023 MCH (RBC) [Entitic mass] 33.5 pg 27.0-32.0 [facility] MCHC (RBC) [Mass/Vol] 33.1 g/dL 32-36 [facility] Nucleated RBC/100 WBC (Bld) [Ratio] 0 % 0-5 [facility] Platelet mean volume (Bld) [Entitic vol] 9.4 fL 6.2-12.0 [facility] Platelets (Bld) [#/Vol] 144 10*3/uL 150-450 [facility] No Panel InformationOrdered By: Reji Reyna on 06-02-2023 Estimated GFR (MDRD) Amer 118 mL/min >60 [facility] Comment on above: GFR Calc Estimated GFR (MDRD) Non-Af Amer 97 mL/min >60 [facility] Comment on above: Non- GFR Calc RBC Auto (Bld) [#/Vol]Ordere d By: Reji Reyna on 06-02-2023 RBC (Bld) [#/Vol] 3.37 10*6/uL 4.2-5.4 [place] Serum or plasma calcium yonatan urement (mass/volume)Ordered By: Reji Reyna on 06-02-2023 Calcium [Mass/Vol] 9.1 mg/dL 8.5-10.1 [facility] Serum or plasma creatinine m easurement (mass/volume)Ordered By: Reji Reyna on 06-02-2023 Creatinine [Mass/Vol] 0.62 mg/dL 0.55-1.02 [facility] Comment on above: The validity of the calculated GFR & GFRAA in patients over 70 years has not been determined. Clinical correlation is essential. Serum or plasma urea nitroge n measurement (mass/volume)Ordered By: [facility] Herronrejialyssa on 06-02-2023 Urea nitrogen [Mass/Vol] 13 mg/dL 7-18 [facility] Thin prep Papanicolaou smear with manual screeningOrdered By: Angelitomerylailyn Gopalrejialyssa on 06-02-2023 Thin prep Papanicolaou smear with manual screening 2.4 g/dL 3.2-5.0 [facility] Thin prep Papanicolaou smear with manual screening 26 U/L 15-37 [facility] Thin prep Papanicolaou smear with manual screening 4 5-15 [facility] Absolute lymphocyte countOrd ered By: [facility] Herronrejialyssa on 05-05-2023 Lymphocytes Auto (Unsp spec) [#/Vol] 1.25 10*3/uL 0.83-4.51 [facility] Automated lymphocyte count a s percentage of total leukocytesOrdered By: Reji Reyna on 05-05-2023 Lymphocytes/100 WBC Auto (Unsp spec) 17.8 % 19-41 [facility] Basophil percentageOrdered B y: Reji Gopaljodi on 05-05-2023 Basophils/100 WBC (Bld) 0.6 % 0-1 [facility] Bilirubin [Mass/Vol] 0.80 mg/dL 0.20-1.00 [facility] Comment on above: For patients on eltr ombopag therapy, use of Dimension Bath TBIL is not recommended. Chloride [Moles/Vol] 112 mmol/L 98-107 [facility] Eosinophils/100 WBC (Bld) 1.6 % 0-5 [facility] Glucose [Mass/Vol] 76 mg/dL 74-106 [facility] Hemoglobin (Bld) [Mass/Vol] 11.6 g/dL 12.0-15.0 [facility] Monocytes/100 WBC (Bld) 11.1 % 0-10 [facility] Neutrophils (Bld) [#/Vol] 4.8 10*3/uL 2.0-7.7 [facility] Neutrophils/100 WBC (Bld) 68.5 % 47-70 [facility] Potassium [Moles/Vol] 4.0 mmol/L 3.5-5.1 [facility] Protein [Mass/Vol] 6.7 g/dL 6.4-8.2 [facility] Sodium [Moles/Vol] 142 mmol/L 136-145 [facility] WBC (Bld) [#/Vol] 7.0 10*3/uL 4.4-11.0 [facility] Determination of erythrocyte mean corpuscular volume (MCV)Ordered By: Reji Reyna on 05-05-2023 MCV (RBC) [Entitic vol] 102.3 fL 81-99 [facility] Erythrocyte distribution wid th ratioOrdered By: [facility] Gopalalyssa on 05-05-2023 Erythrocyte distribution width (RBC) [Ratio] 14.0 % 11.6-14.6 [facility] Erythrocyte distribution wid th standard deviationOrdered By: [facility] 05-[facility]2023 Erythrocyte distribution width (RBC) [Entitic vol] 51.9 fL 35.1-43.9 [facility] Hematocrit Auto (Bld) [Volum e fraction]Ordered By: [facility] Gopalalyssa on 05-05-2023 Hematocrit (Bld) [Volume fraction] 35.7 % 37-47 [facility] Immature granulocytes/100 WB C Auto (Bld)Ordered By: [facility] Gopalalyssa on 05-05-2023 Immature granulocytes/100 WBC (Bld) 0.400 % 0.0-0.9 [facility] Comment on above: IG% - Immature Granu locytes (promyelocytes, myelocytes and metamyelocytes) > 1% indicates that a LEFT SHIFT is Present. Laboratory - Chemistry and C hemistry - challengeOrdered By: [facility] Herronalyssa on 05-05-2023 Albumin/Globulin [Mass ratio] 0.6 {ratio} 0.9-2.4 [facility] ALP [Catalytic activity/Vol] 56 U/L 45-117 [facility] ALT [Catalytic activity/Vol] 24 U/L 13-56 [facility] CO2 [Moles/Vol] 26.0 mmol/L 21.0-32.0 [facility] Globulin (S) [Mass/Vol] 4.3 g/dL 2.2-4.2 [facility] Urea nitrogen/Creatinine [Mass ratio] 16.0 mg/mg 10-20 [facility] Laboratory - Hematology and Cell countsOrdered By: Reji Reyna on 05-05-2023 MCH (RBC) [Entitic mass] 33.2 pg 27.0-32.0 [facility] MCHC (RBC) [Mass/Vol] 32.5 g/dL 32-36 [facility] Nucleated RBC/100 WBC (Bld) [Ratio] 0 % 0-5 [facility] Platelet mean volume (Bld) [Entitic vol] 9.4 fL 6.2-12.0 [facility] Platelets (Bld) [#/Vol] 144 10*3/uL 150-450 [facility] No Panel InformationOrdered By: Reji Reyna on 05-05-2023 Estimated GFR (MDRD) Amer 104 mL/min >60 [facility] Comment on above: GFR Calc Estimated GFR (MDRD) Non-Af Amer 86 mL/min >60 [facility] Comment on above: Non- GFR Calc RBC Auto (Bld) [#/Vol]Ordere d By: Reji Reyna on 05-05-2023 RBC (Bld) [#/Vol] 3.49 10*6/uL 4.2-5.4 [place] Serum or plasma calcium yonatan urement (mass/volume)Ordered By: Reji Reyna on 05-05-2023 Calcium [Mass/Vol] 9.0 mg/dL 8.5-10.1 [facility] Serum or plasma creatinine m easurement (mass/volume)Ordered By: Reji Reyna on 05-05-2023 Creatinine [Mass/Vol] 0.69 mg/dL 0.55-1.02 [facility] Comment on above: The validity of the calculated GFR & GFRAA in patients over 70 years has not been determined. Clinical correlation is essential. Serum or plasma thyroid stim ulating hormone (TSH) measurement (units/volume)Ordered By: Reji Reyna on 05-05-2023 TSH Qn 1.84 uIU/mL 0.358-3.74 [facility] Serum or plasma urea nitroge n measurement (mass/volume)Ordered By: Reji Reyna on 05-05-2023 Urea nitrogen [Mass/Vol] 11 mg/dL 7-18 [facility] Thin prep Papanicolaou smear with manual screeningOrdered By: Reji Reyna on 05-05-2023 Thin prep Papanicolaou smear with manual screening 2.4 g/dL 3.2-5.0 [facility] Thin prep Papanicolaou smear with manual screening 16 U/L 15-37 [facility] Thin prep Papanicolaou smear with manual screening 4 5-15 [facility] Absolute lymphocyte countOrd ered By: Reji Reyna on 03-31-2023 Lymphocytes Auto (Unsp spec) [#/Vol] 1.66 10*3/uL 0.83-4.51 [facility] Basophil percentageOrdered B y: Reji Reyna on 03-31-2023 Basophils/100 WBC (Bld) 0.7 % 0-1 [facility] Bilirubin [Mass/Vol] 0.60 mg/dL 0.20-1.00 [facility] Comment on above: For patients on eltr ombopag therapy, use of Dimension Bath TBIL is not recommended. Chloride [Moles/Vol] 109 mmol/L 98-107 [facility] Eosinophils/100 WBC (Bld) 1.1 % 0-5 [facility] Glucose [Mass/Vol] 69 mg/dL 74-106 [facility] Neutrophils (Bld) [#/Vol] 4.8 10*3/uL 2.0-7.7 [facility] Neutrophils/100 WBC (Bld) 65.4 % 47-70 [facility] Potassium [Moles/Vol] 4.1 mmol/L 3.5-5.1 [facility] Protein [Mass/Vol] 7.0 g/dL 6.4-8.2 [facility] Sodium [Moles/Vol] 142 mmol/L 136-145 [facility] WBC (Bld) [#/Vol] 7.4 10*3/uL 4.4-11.0 [facility] Blood erythrocytes count (nu mber/volume)Ordered By: Reji Reyna on 03-31-2023 RBC (Bld) [#/Vol] 3.54 10*6/uL 4.2-5.4 [place] Blood hemoglobin measurement (mass/volume)Ordered By: Reji Reyna on 03-31-2023 Hemoglobin (Bld) [Mass/Vol] 12.3 g/dL 12.0-15.0 [facility] Blood lymphocytes/100 leukoc ytesOrdered By: Reji Reyna on 03-31-2023 Lymphocytes/100 WBC (Bld) 22.5 % 19-41 [facility] Blood monocytes/100 leukocyt esOrdered By: arline Reyna on 03-31-2023 Monocytes/100 WBC (Bld) 9.8 % 0-10 [facility] Blood platelet mean volumeOr dered By: Reji Reyna on 03-31-2023 Platelet mean volume (Bld) [Entitic vol] 9.9 fL 6.2-12.0 [facility] Determination of erythrocyte mean corpuscular volume (MCV)Ordered By: Reji Reyna on 03-31-2023 MCV (RBC) [Entitic vol] 103.7 fL 81-99 [facility] Hematocrit Auto (Bld) [Volum e fraction]Ordered By: Reji Reyna on 03-31-2023 Hematocrit (Bld) [Volume fraction] 36.7 % 37-47 [facility] Laboratory - Chemistry and C hemistry - challengeOrdered By: Reji Reyna on 03-31-2023 ALP [Catalytic activity/Vol] 60 U/L 45-117 [facility] ALT [Catalytic activity/Vol] 26 U/L 13-56 [facility] CO2 [Moles/Vol] 27.0 mmol/L 21.0-32.0 [facility] Globulin (S) [Mass/Vol] 4.2 g/dL 2.2-4.2 [facility] Urea nitrogen/Creatinine [Mass ratio] 19.8 mg/mg 10-20 [facility] Laboratory - Hematology and Cell countsOrdered By: Reji Reyna on 03-31-2023 Erythrocyte distribution width (RBC) [Entitic vol] 51.9 fL 35.1-43.9 [facility] Erythrocyte distribution width (RBC) [Ratio] 13.6 % 11.6-14.6 [facility] Immature granulocytes/100 WBC (Bld) 0.500 % 0.0-0.9 [facility] Comment on above: IG% - Immature Granu locytes (promyelocytes, myelocytes and metamyelocytes) > 1% indicates that a LEFT SHIFT is Present. MCH (RBC) [Entitic mass] 34.7 pg 27.0-32.0 [facility] Nucleated RBC/100 WBC (Bld) [Ratio] 0 % 0-5 [facility] MCHC Auto (RBC) [Mass/Vol]Or dered By: Reji Reyna on 03-31-2023 MCHC (RBC) [Mass/Vol] 33.5 g/dL 32-36 [facility] No Panel InformationOrdered By: Reji Reyna on 03-31-2023 Estimated GFR (MDRD) Amer 120 mL/min >60 [facility] Comment on above: GFR Calc Estimated GFR (MDRD) Non-Af Amer 99 mL/min >60 [facility] Comment on above: Non- GFR Calc Platelets bldOrdered By: Fredy Reyna on 03-31-2023 Platelets (Bld) [#/Vol] 139 10*3/uL 150-450 [facility] Serum or plasma albumin yonatan urement (mass/volume)Ordered By: Reji Reyna on 03-31-2023 Albumin [Mass/Vol] 2.8 g/dL 3.2-5.0 [facility] Serum or plasma albumin/glob ulin mass ratioOrdered By: Rjei Reyna on 03-31-2023 Albumin/Globulin [Mass ratio] 0.7 {ratio} 0.9-2.4 [facility] Serum or plasma calcium yonatan urement (mass/volume)Ordered By: Reji Reyna on 03-31-2023 Calcium [Mass/Vol] 9.1 mg/dL 8.5-10.1 [facility] Serum or plasma creatinine m easurement (mass/volume)Ordered By: Reji Reyna on 03-31-2023 Creatinine [Mass/Vol] 0.61 mg/dL 0.55-1.02 [facility] Comment on above: The validity of the calculated GFR & GFRAA in patients over 70 years has not been determined. Clinical correlation is essential. Serum or plasma urea nitroge n measurement (mass/volume)Ordered By: Reji Reyna on 03-31-2023 Urea nitrogen [Mass/Vol] 12 mg/dL - [facility] Thin prep Papanicolaou smear with manual screeningOrdered By: merylmichaelgarfield Reyna on 03-31-2023 Thin prep Papanicolaou smear with manual screening 22 U/L [facility] Thin prep Papanicolaou smear with manual screening 6 - [facility] Absolute lymphocyte countOrd ered By: [facility]isongarfield Herronrejialyssa on 03-03-2023 Lymphocytes Auto (Unsp spec) [#/Vol] 1.95 10*3/uL 0.83-4.51 [facility] Basophil percentageOrdered B y: Reji Gopalrejialyssa on 03-03-2023 Basophils/100 WBC (Bld) 0.5 % 0-1 [facility] Bilirubin [Mass/Vol] 0.80 mg/dL 0.20-1.00 [facility] Comment on above: For patients on eltr ombopag therapy, use of Dimension Bath TBIL is not recommended. Chloride [Moles/Vol] 109 mmol/L 98-107 [facility] Eosinophils/100 WBC (Bld) 1.6 % 0-5 [facility] Glucose [Mass/Vol] 67 mg/dL 74-106 [facility] Neutrophils (Bld) [#/Vol] 4.4 10*3/uL 2.0-7.7 [facility] Neutrophils/100 WBC (Bld) 60.1 % 47-70 [facility] Potassium [Moles/Vol] 4.2 mmol/L 3.5-5.1 [facility] Protein [Mass/Vol] 7.3 g/dL 6.4-8.2 [facility] Sodium [Moles/Vol] 142 mmol/L 136-145 [facility] WBC (Bld) [#/Vol] 7.4 10*3/uL 4.4-11.0 [facility] Blood erythrocytes count (nu mber/volume)Ordered By: Reji Reyna on 03-03-2023 RBC (Bld) [#/Vol] 3.61 10*6/uL 4.2-5.4 [place] Blood hemoglobin measurement (mass/volume)Ordered By: Reji Reyna on 03-03-2023 Hemoglobin (Bld) [Mass/Vol] 12.6 g/dL 12.0-15.0 [facility] Blood lymphocytes/100 leukoc ytesOrdered By: [facility] on 03-03-2023 Lymphocytes/100 WBC (Bld) 26.4 % 19-41 [facility] Blood monocytes/100 leukocyt esOrdered By: [facility] Reyna on 03-03-2023 Monocytes/100 WBC (Bld) 10.7 % 0-10 [facility] Blood platelet mean volumeOr dered By: arline Reyna on 03-03-2023 Platelet mean volume (Bld) [Entitic vol] 9.8 fL 6.2-12.0 [facility] Determination of erythrocyte mean corpuscular volume (MCV)Ordered By: Reji Reyna on 03-03-2023 MCV (RBC) [Entitic vol] 104.7 fL 81-99 [facility] Hematocrit Auto (Bld) [Volum e fraction]Ordered By: arline Reyna on 03-03-2023 Hematocrit (Bld) [Volume fraction] 37.8 % 37-47 [facility] Laboratory - Chemistry and C hemistry - challengeOrdered By: Reji Reyna on 03-03-2023 ALP [Catalytic activity/Vol] 71 U/L 45-117 [facility] ALT [Catalytic activity/Vol] 38 U/L 13-56 [facility] CO2 [Moles/Vol] 28.0 mmol/L 21.0-32.0 [facility] Globulin (S) [Mass/Vol] 4.3 g/dL 2.2-4.2 [facility] Urea nitrogen/Creatinine [Mass ratio] 20.3 mg/mg 10-20 [facility] Laboratory - Hematology and Cell countsOrdered By: Reji Reyna on 03-03-2023 Erythrocyte distribution width (RBC) [Entitic vol] 53.8 fL 35.1-43.9 [facility] Erythrocyte distribution width (RBC) [Ratio] 14.0 % 11.6-14.6 [facility] Immature granulocytes/100 WBC (Bld) 0.700 % 0.0-0.9 [facility] Comment on above: IG% - Immature Granu locytes (promyelocytes, myelocytes and metamyelocytes) > 1% indicates that a LEFT SHIFT is Present. MCH (RBC) [Entitic mass] 34.9 pg 27.0-32.0 [facility] Nucleated RBC/100 WBC (Bld) [Ratio] 0 % 0-5 [facility] MCHC Auto (RBC) [Mass/Vol]Or dered By: Reji Reyna on 03-03-2023 MCHC (RBC) [Mass/Vol] 33.3 g/dL 32-36 [facility] No Panel InformationOrdered By: Reji Reyna on 03-03-2023 Estimated GFR (MDRD) Amer 96 mL/min >60 [facility] Comment on above: GFR Calc Estimated GFR (MDRD) Non-Af Amer 79 mL/min >60 [facility] Comment on above: Non- GFR Calc Platelets bldOrdered By: Fredy Reyna on 03-03-2023 Platelets (Bld) [#/Vol] 141 10*3/uL 150-450 [facility] Serum or plasma albumin yonatan urement (mass/volume)Ordered By: Reji Reyna on 03-03-2023 Albumin [Mass/Vol] 3.0 g/dL 3.2-5.0 [facility] Serum or plasma albumin/glob ulin mass ratioOrdered By: Reji Reyna on 03-03-2023 Albumin/Globulin [Mass ratio] 0.7 {ratio} 0.9-2.4 [facility] Serum or plasma calcium yonatan urement (mass/volume)Ordered By: Reji Reyna on 03-03-2023 Calcium [Mass/Vol] 9.0 mg/dL 8.5-10.1 [facility] Serum or plasma creatinine m easurement (mass/volume)Ordered By: Reji Reyna on 03-03-2023 Creatinine [Mass/Vol] 0.74 mg/dL 0.55-1.02 [facility] Comment on above: The validity of the calculated GFR & GFRAA in patients over 70 years has not been determined. Clinical correlation is essential. Serum or plasma urea nitroge n measurement (mass/volume)Ordered By: Reji Reyna on 03-03-2023 Urea nitrogen [Mass/Vol] 15 mg/dL 7-18 [facility] Thin prep Papanicolaou smear with manual screeningOrdered By: Reji Reyna on 03-03-2023 Thin prep Papanicolaou smear with manual screening 38 U/L 15-37 [facility] Thin prep Papanicolaou smear with manual screening 5 5-15 [facility] Absolute lymphocyte countOrd ered By: Reji Reyna on 02-03-2023 Lymphocytes Auto (Unsp spec) [#/Vol] 1.74 10*3/uL 0.83-4.51 [facility] Basophil percentageOrdered B y: Reji Reyna on 02-03-2023 Basophils/100 WBC (Bld) 0.6 % 0-1 [facility] Bilirubin [Mass/Vol] 0.70 mg/dL 0.20-1.00 [facility] Comment on above: For patients on eltr ombopag therapy, use of Dimension Bath TBIL is not recommended. Chloride [Moles/Vol] 108 mmol/L 98-107 [facility] Eosinophils/100 WBC (Bld) 1.4 % 0-5 [facility] Glucose [Mass/Vol] 79 mg/dL 74-106 [facility] Neutrophils (Bld) [#/Vol] 4.5 10*3/uL 2.0-7.7 [facility] Neutrophils/100 WBC (Bld) 62.8 % 47-70 [facility] Potassium [Moles/Vol] 3.8 mmol/L 3.5-5.1 [facility] Protein [Mass/Vol] 7.3 g/dL 6.4-8.2 [facility] Sodium [Moles/Vol] 141 mmol/L 136-145 [facility] WBC (Bld) [#/Vol] 7.1 10*3/uL 4.4-11.0 [facility] Blood erythrocytes count (nu mber/volume)Ordered By: Reji Reyna on 02-03-2023 RBC (Bld) [#/Vol] 3.58 10*6/uL 4.2-5.4 [place] Blood hemoglobin measurement (mass/volume)Ordered By: Reji Reyna on 02-03-2023 Hemoglobin (Bld) [Mass/Vol] 12.3 g/dL 12.0-15.0 [facility] Blood lymphocytes/100 leukoc ytesOrdered By: Reji Reyna on 02-03-2023 Lymphocytes/100 WBC (Bld) 24.5 % 19-41 [facility] Blood monocytes/100 leukocyt esOrdered By: Reji Reyna on 02-03-2023 Monocytes/100 WBC (Bld) 10.4 % 0-10 [facility] Blood platelet mean volumeOr dered By: Reji Reyna on 02-03-2023 Platelet mean volume (Bld) [Entitic vol] 9.4 fL 6.2-12.0 [facility] Determination of erythrocyte mean corpuscular volume (MCV)Ordered By: Reji Reyna on 02-03-2023 MCV (RBC) [Entitic vol] 103.9 fL 81-99 [facility] Hematocrit Auto (Bld) [Volum e fraction]Ordered By: Reji Reyna on 02-03-2023 Hematocrit (Bld) [Volume fraction] 37.2 % 37-47 [facility] Laboratory - Chemistry and C hemistry - challengeOrdered By: Reji Ryena on 02-03-2023 ALP [Catalytic activity/Vol] 88 U/L 45-117 [facility] ALT [Catalytic activity/Vol] 36 U/L 13-56 [facility] CO2 [Moles/Vol] 27.0 mmol/L 21.0-32.0 [facility] Globulin (S) [Mass/Vol] 4.5 g/dL 2.2-4.2 [facility] Urea nitrogen/Creatinine [Mass ratio] 22.9 mg/mg 10-20 [facility] Laboratory - Hematology and Cell countsOrdered By: Reji Reyna on 02-03-2023 Erythrocyte distribution width (RBC) [Entitic vol] 55.1 fL 35.1-43.9 [facility] Erythrocyte distribution width (RBC) [Ratio] 14.5 % 11.6-14.6 [facility] Immature granulocytes/100 WBC (Bld) 0.300 % 0.0-0.9 [facility] Comment on above: IG% - Immature Granu locytes (promyelocytes, myelocytes and metamyelocytes) > 1% indicates that a LEFT SHIFT is Present. MCH (RBC) [Entitic mass] 34.4 pg 27.0-32.0 [facility] Nucleated RBC/100 WBC (Bld) [Ratio] 0 % 0-5 [facility] MCHC Auto (RBC) [Mass/Vol]Or dered By: Reji Reyna on 02-03-2023 MCHC (RBC) [Mass/Vol] 33.1 g/dL 32-36 [facility] No Panel InformationOrdered By: Reji Reyna on 02-03-2023 Estimated GFR (MDRD) Amer 110 mL/min >60 [facility] Comment on above: GFR Calc Estimated GFR (MDRD) Non-Af Amer 91 mL/min >60 [facility] Comment on above: Non- GFR Calc Platelets bldOrdered By: Fredy Reyna on 02-03-2023 Platelets (Bld) [#/Vol] 134 10*3/uL 150-450 [facility] Serum or plasma albumin yonatan urement (mass/volume)Ordered By: Reji Reyna on 02-03-2023 Albumin [Mass/Vol] 2.8 g/dL 3.2-5.0 [facility] Serum or plasma albumin/glob ulin mass ratioOrdered By: Reji Reyna on 02-03-2023 Albumin/Globulin [Mass ratio] 0.6 {ratio} 0.9-2.4 [facility] Serum or plasma calcium yonatan urement (mass/volume)Ordered By: Reji Reyna on 02-03-2023 Calcium [Mass/Vol] 9.2 mg/dL 8.5-10.1 [facility] Serum or plasma creatinine m easurement (mass/volume)Ordered By: Reji Reyna on 02-03-2023 Creatinine [Mass/Vol] 0.66 mg/dL 0.55-1.02 [facility] Comment on above: The validity of the calculated GFR & GFRAA in patients over 70 years has not been determined. Clinical correlation is essential. Serum or plasma urea nitroge n measurement (mass/volume)Ordered By: meryldeer parkgarfield Reyna on 02-03-2023 Urea nitrogen [Mass/Vol] 15 mg/dL 7-18 [facility] Thin prep Papanicolaou smear with manual screeningOrdered By: [facility] Reyna on 02-03-2023 Thin prep Papanicolaou smear with manual screening 29 U/L 15-37 [facility] Thin prep Papanicolaou smear with manual screening 6 5-15 [facility] Absolute lymphocyte countOrd ered By: merylmichaelgarfield Herronrejialyssa on 12-30-2022 Lymphocytes Auto (Unsp spec) [#/Vol] 1.24 10*3/uL 0.83-4.51 [facility] Basophil percentageOrdered B y: Reji Gopalrejialyssa on 12-30-2022 Basophils/100 WBC (Bld) 0.8 % 0-1 [facility] Bilirubin [Mass/Vol] 0.60 mg/dL 0.20-1.00 [facility] Comment on above: For patients on eltr ombopag therapy, use of Dimension Bath TBIL is not recommended. Chloride [Moles/Vol] 111 mmol/L 98-107 [facility] Eosinophils/100 WBC (Bld) 2.6 % 0-5 [facility] Glucose [Mass/Vol] 81 mg/dL 74-106 [facility] Neutrophils (Bld) [#/Vol] 2.9 10*3/uL 2.0-7.7 [facility] Neutrophils/100 WBC (Bld) 57.5 % 47-70 [facility] Potassium [Moles/Vol] 4.1 mmol/L 3.5-5.1 [facility] Protein [Mass/Vol] 6.8 g/dL 6.4-8.2 [facility] Sodium [Moles/Vol] 141 mmol/L 136-145 [facility] WBC (Bld) [#/Vol] 5.0 10*3/uL 4.4-11.0 [facility] Blood erythrocytes count (nu mber/volume)Ordered By: Reji Reyna on 12-30-2022 RBC (Bld) [#/Vol] 3.26 10*6/uL 4.2-5.4 [place] Blood hemoglobin measurement (mass/volume)Ordered By: Reji Reyna on 12-30-2022 Hemoglobin (Bld) [Mass/Vol] 11.8 g/dL 12.0-15.0 [facility] Blood lymphocytes/100 leukoc ytesOrdered By: Reji Reyna on 12-30-2022 Lymphocytes/100 WBC (Bld) 25.0 % 19-41 [facility] Blood monocytes/100 leukocyt esOrdered By: Reji Reyna on 12-30-2022 Monocytes/100 WBC (Bld) 13.9 % 0-10 [facility] Blood platelet mean volumeOr dered By: Reji Reyna on 12-30-2022 Platelet mean volume (Bld) [Entitic vol] 10.1 fL 6.2-12.0 [facility] Determination of erythrocyte mean corpuscular volume (MCV)Ordered By: Reji Reyna on 12-30-2022 MCV (RBC) [Entitic vol] 104.6 fL 81-99 [facility] Hematocrit Auto (Bld) [Volum e fraction]Ordered By: Reji Reyna on 12-30-2022 Hematocrit (Bld) [Volume fraction] 34.1 % 37-47 [facility] Laboratory - Chemistry and C hemistry - challengeOrdered By: Reji Reyna on 12-30-2022 ALP [Catalytic activity/Vol] 89 U/L 45-117 [facility] ALT [Catalytic activity/Vol] 25 U/L 13-56 [facility] CO2 [Moles/Vol] 25.0 mmol/L 21.0-32.0 [facility] Globulin (S) [Mass/Vol] 4.0 g/dL 2.2-4.2 [facility] Urea nitrogen/Creatinine [Mass ratio] 21.3 mg/mg 10-20 [facility] Laboratory - Hematology and Cell countsOrdered By: Reji Reyna on 12-30-2022 Erythrocyte distribution width (RBC) [Entitic vol] 53.4 fL 35.1-43.9 [facility] Erythrocyte distribution width (RBC) [Ratio] 14.1 % 11.6-14.6 [facility] Immature granulocytes/100 WBC (Bld) 0.200 % 0.0-0.9 [facility] Comment on above: IG% - Immature Granu locytes (promyelocytes, myelocytes and metamyelocytes) > 1% indicates that a LEFT SHIFT is Present. MCH (RBC) [Entitic mass] 36.2 pg 27.0-32.0 [facility] Nucleated RBC/100 WBC (Bld) [Ratio] 0 % 0-5 [facility] MCHC Auto (RBC) [Mass/Vol]Or dered By: Reji Reyna on 12-30-2022 MCHC (RBC) [Mass/Vol] 34.6 g/dL 32-36 [facility] No Panel InformationOrdered By: Reji Reyna on 12-30-2022 Estimated GFR (MDRD) Amer 120 mL/min >60 [facility] Comment on above: GFR Calc Estimated GFR (MDRD) Non-Af Amer 99 mL/min >60 [facility] Comment on above: Non- GFR Calc Platelets bldOrdered By: Fredy Reyna on 12-30-2022 Platelets (Bld) [#/Vol] 111 10*3/uL 150-450 [facility] Serum or plasma albumin yonatan urement (mass/volume)Ordered By: Reji Reyna on 12-30-2022 Albumin [Mass/Vol] 2.8 g/dL 3.2-5.0 [facility] Serum or plasma albumin/glob ulin mass ratioOrdered By: Reji Reyna on 12-30-2022 Albumin/Globulin [Mass ratio] 0.7 {ratio} 0.9-2.4 [facility] Serum or plasma calcium yonatan urement (mass/volume)Ordered By: Angelitomerylmichaelgarfield Herronrejialyssa on 12-30-2022 Calcium [Mass/Vol] 9.1 mg/dL 8.5-10.1 [facility] Serum or plasma creatinine m easurement (mass/volume)Ordered By: Jasmichaelgarfield Herronrejialyssa on 12-30-2022 Creatinine [Mass/Vol] 0.61 mg/dL 0.55-1.02 [facility] Comment on above: The validity of the calculated GFR & GFRAA in patients over 70 years has not been determined. Clinical correlation is essential. Serum or plasma urea nitroge n measurement (mass/volume)Ordered By: Angelitomerylmichaelgarfield Herronrejialyssa on 12-30-2022 Urea nitrogen [Mass/Vol] 13 mg/dL 7-18 [facility] Thin prep Papanicolaou smear with manual screeningOrdered By: Angelitomerylailyn Gopalrejialyssa on 12-30-2022 Thin prep Papanicolaou smear with manual screening 25 U/L 15-37 [facility] Thin prep Papanicolaou smear with manual screening 5 5-15 [facility] Absolute lymphocyte countOrd ered By: Reji Reyna on 12-02-2022 Lymphocytes Auto (Unsp spec) [#/Vol] 1.55 10*3/uL 0.83-4.51 [facility] Basophil percentageOrdered B y: Reji Reyna on 12-02-2022 Basophils/100 WBC (Bld) 0.4 % 0-1 [facility] Bilirubin [Mass/Vol] 0.60 mg/dL 0.20-1.00 [facility] Comment on above: For patients on eltr ombopag therapy, use of Dimension Bath TBIL is not recommended. Chloride [Moles/Vol] 109 mmol/L 98-107 [facility] Eosinophils/100 WBC (Bld) 2.3 % 0-5 [facility] Glucose [Mass/Vol] 82 mg/dL 74-106 [facility] Neutrophils (Bld) [#/Vol] 3.0 10*3/uL 2.0-7.7 [facility] Neutrophils/100 WBC (Bld) 56.8 % 47-70 [facility] Potassium [Moles/Vol] 4.5 mmol/L 3.5-5.1 [facility] Protein [Mass/Vol] 7.0 g/dL 6.4-8.2 [facility] Sodium [Moles/Vol] 140 mmol/L 136-145 [facility] WBC (Bld) [#/Vol] 5.3 10*3/uL 4.4-11.0 [facility] Blood erythrocytes count (nu mber/volume)Ordered By: Reji Reyna on 12-02-2022 RBC (Bld) [#/Vol] 3.54 10*6/uL 4.2-5.4 [place] Blood hemoglobin measurement (mass/volume)Ordered By: Reji Reyna on 12-02-2022 Hemoglobin (Bld) [Mass/Vol] 12.2 g/dL 12.0-15.0 [facility] Blood lymphocytes/100 leukoc ytesOrdered By: Reji Reyna on 12-02-2022 Lymphocytes/100 WBC (Bld) 29.3 % 19-41 [facility] Blood monocytes/100 leukocyt esOrdered By: Reji Reyna on 12-02-2022 Monocytes/100 WBC (Bld) 10.8 % 0-10 [facility] Blood platelet mean volumeOr dered By: Reji Reyna on 12-02-2022 Platelet mean volume (Bld) [Entitic vol] 10.1 fL 6.2-12.0 [facility] Determination of erythrocyte mean corpuscular volume (MCV)Ordered By: Reji Reyna on 12-02-2022 MCV (RBC) [Entitic vol] 104.8 fL 81-99 [facility] Hematocrit Auto (Bld) [Volum e fraction]Ordered By: Reji Reyna on 12-02-2022 Hematocrit (Bld) [Volume fraction] 37.1 % 37-47 [facility] Laboratory - Chemistry and C hemistry - challengeOrdered By: Reji Reyna on 12-02-2022 ALP [Catalytic activity/Vol] 90 U/L 45-117 [facility] ALT [Catalytic activity/Vol] 30 U/L 13-56 [facility] CO2 [Moles/Vol] 26.0 mmol/L 21.0-32.0 [facility] Globulin (S) [Mass/Vol] 4.0 g/dL 2.2-4.2 [facility] Urea nitrogen/Creatinine [Mass ratio] 25.4 mg/mg 10-20 [facility] Laboratory - Hematology and Cell countsOrdered By: Reji Reyna on 12-02-2022 Erythrocyte distribution width (RBC) [Entitic vol] 51.2 fL 35.1-43.9 [facility] Erythrocyte distribution width (RBC) [Ratio] 13.4 % 11.6-14.6 [facility] Immature granulocytes/100 WBC (Bld) 0.400 % 0.0-0.9 [facility] Comment on above: IG% - Immature Granu locytes (promyelocytes, myelocytes and metamyelocytes) > 1% indicates that a LEFT SHIFT is Present. MCH (RBC) [Entitic mass] 34.5 pg 27.0-32.0 [facility] Nucleated RBC/100 WBC (Bld) [Ratio] 0 % 0-5 [facility] MCHC Auto (RBC) [Mass/Vol]Or dered By: Reji Reyna on 12-02-2022 MCHC (RBC) [Mass/Vol] 32.9 g/dL 32-36 [facility] No Panel InformationOrdered By: Reji Reyna on 12-02-2022 Estimated GFR (MDRD) Amer 115 mL/min >60 [facility] Comment on above: GFR Calc Estimated GFR (MDRD) Non-Af Amer 95 mL/min >60 [facility] Comment on above: Non- GFR Calc Platelets bldOrdered By: Fredy Reyna on 12-02-2022 Platelets (Bld) [#/Vol] 117 10*3/uL 150-450 [facility] Serum or plasma albumin yonatan urement (mass/volume)Ordered By: Reji Reyna on 12-02-2022 Albumin [Mass/Vol] 3.0 g/dL 3.2-5.0 [facility] Serum or plasma albumin/glob ulin mass ratioOrdered By: Reji Reyna on 12-02-2022 Albumin/Globulin [Mass ratio] 0.8 {ratio} 0.9-2.4 [facility] Serum or plasma calcium yonatan urement (mass/volume)Ordered By: Reji Reyna on 12-02-2022 Calcium [Mass/Vol] 8.9 mg/dL 8.5-10.1 [facility] Serum or plasma creatinine m easurement (mass/volume)Ordered By: Reji Reyna on 12-02-2022 Creatinine [Mass/Vol] 0.63 mg/dL 0.55-1.02 [facility] Comment on above: The validity of the calculated GFR & GFRAA in patients over 70 years has not been determined. Clinical correlation is essential. Serum or plasma urea nitroge n measurement (mass/volume)Ordered By: Reji Reyna on 12-02-2022 Urea nitrogen [Mass/Vol] 16 mg/dL -18 [facility] Thin prep Papanicolaou smear with manual screeningOrdered By: Reji Reyna on 12-02-2022 Thin prep Papanicolaou smear with manual screening 34 U/L 15-37 [facility] Thin prep Papanicolaou smear with manual screening 5 5-15 [facility] XR WRIST GENERAL 3V PA/LAT/O BL RIGHTon 11-25-2022 [facility] Absolute lymphocyte countOrd ered By: Reji Reyna on 11-04-2022 Lymphocytes Auto (Unsp spec) [#/Vol] 1.45 10*3/uL 0.83-4.51 [facility] Basophil percentageOrdered B y: Reji Reyna on 11-04-2022 Basophils/100 WBC (Bld) 0.7 % 0-1 [facility] Bilirubin [Mass/Vol] 0.60 mg/dL 0.20-1.00 [facility] Comment on above: For patients on eltr ombopag therapy, use of Dimension Bath TBIL is not recommended. Chloride [Moles/Vol] 111 mmol/L 98-107 [facility] Eosinophils/100 WBC (Bld) 2.4 % 0-5 [facility] Glucose [Mass/Vol] 84 mg/dL 74-106 [facility] Neutrophils (Bld) [#/Vol] 2.4 10*3/uL 2.0-7.7 [facility] Neutrophils/100 WBC (Bld) 52.9 % 47-70 [facility] Potassium [Moles/Vol] 4.0 mmol/L 3.5-5.1 [facility] Protein [Mass/Vol] 7.2 g/dL 6.4-8.2 [facility] Sodium [Moles/Vol] 141 mmol/L 136-145 [facility] WBC (Bld) [#/Vol] 4.6 10*3/uL 4.4-11.0 [facility] Blood erythrocytes count (nu mber/volume)Ordered By: Reji Reyna on 11-04-2022 RBC (Bld) [#/Vol] 3.31 10*6/uL 4.2-5.4 [place] Blood hemoglobin measurement (mass/volume)Ordered By: Reji Reyna on 11-04-2022 Hemoglobin (Bld) [Mass/Vol] 11.5 g/dL 12.0-15.0 [facility] Blood lymphocytes/100 leukoc ytesOrdered By: Reji Reyna on 11-04-2022 Lymphocytes/100 WBC (Bld) 31.9 % 19-41 [facility] Blood monocytes/100 leukocyt esOrdered By: Reji Reyna on 11-04-2022 Monocytes/100 WBC (Bld) 11.9 % 0-10 [facility] Blood platelet mean volumeOr dered By: Reji Reyna on 11-04-2022 Platelet mean volume (Bld) [Entitic vol] 10.0 fL 6.2-12.0 [facility] Determination of erythrocyte mean corpuscular volume (MCV)Ordered By: Reji Reyna on 11-04-2022 MCV (RBC) [Entitic vol] 107.6 fL 81-99 [facility] Hematocrit Auto (Bld) [Volum e fraction]Ordered By: Reji Reyna on 11-04-2022 Hematocrit (Bld) [Volume fraction] 35.6 % 37-47 [facility] Laboratory - Chemistry and C hemistry - challengeOrdered By: Reji Reyna on 11-04-2022 ALP [Catalytic activity/Vol] 88 U/L 45-117 [facility] ALT [Catalytic activity/Vol] 22 U/L 13-56 [facility] CO2 [Moles/Vol] 26.0 mmol/L 21.0-32.0 [facility] Globulin (S) [Mass/Vol] 4.3 g/dL 2.2-4.2 [facility] Urea nitrogen/Creatinine [Mass ratio] 21.2 mg/mg 10-20 [facility] Laboratory - Hematology and Cell countsOrdered By: Reji Reyna on 11-04-2022 Erythrocyte distribution width (RBC) [Entitic vol] 52.2 fL 35.1-43.9 [facility] Erythrocyte distribution width (RBC) [Ratio] 13.2 % 11.6-14.6 [facility] Immature granulocytes/100 WBC (Bld) 0.200 % 0.0-0.9 [facility] Comment on above: IG% - Immature Granu locytes (promyelocytes, myelocytes and metamyelocytes) > 1% indicates that a LEFT SHIFT is Present. MCH (RBC) [Entitic mass] 34.7 pg 27.0-32.0 [facility] Nucleated RBC/100 WBC (Bld) [Ratio] 0 % 0-5 [facility] MCHC Auto (RBC) [Mass/Vol]Or dered By: Reji Reyna on 11-04-2022 MCHC (RBC) [Mass/Vol] 32.3 g/dL 32-36 [facility] No Panel InformationOrdered By: Reji Reyna on 11-04-2022 Estimated GFR (MDRD) Amer 119 mL/min >60 [facility] Comment on above: GFR Calc Estimated GFR (MDRD) Non-Af Amer 98 mL/min >60 [facility] Comment on above: Non- GFR Calc Thyroid Stimulating Hormone (TSH) 0.93 uIU/mL 0.358-3.74 [facility] Platelets bldOrdered By: Fredy Reyna on 11-04-2022 Platelets (Bld) [#/Vol] 114 10*3/uL 150-450 [facility] Serum or plasma albumin yonatan urement (mass/volume)Ordered By: Reji Gopalrejialyssa on 11-04-2022 Albumin [Mass/Vol] 2.9 g/dL 3.2-5.0 [facility] Serum or plasma albumin/glob ulin mass ratioOrdered By: Angelitomerylmichaelgarfield Herronrejialyssa on 11-04-2022 Albumin/Globulin [Mass ratio] 0.7 {ratio} 0.9-2.4 [facility] Serum or plasma calcium yonatan urement (mass/volume)Ordered By: Jamisongarfield Herronrejialyssa on 11-04-2022 Calcium [Mass/Vol] 9.4 mg/dL 8.5-10.1 [facility] Serum or plasma creatinine m easurement (mass/volume)Ordered By: Angelitomerylmichaelgarfield Herronrejialyssa on 11-04-2022 Creatinine [Mass/Vol] 0.61 mg/dL 0.55-1.02 [facility] Comment on above: The validity of the calculated GFR & GFRAA in patients over 70 years has not been determined. Clinical correlation is essential. Serum or plasma urea nitroge n measurement (mass/volume)Ordered By: Jamisongarfield Herronrejialyssa on 11-04-2022 Urea nitrogen [Mass/Vol] 13 mg/dL 7-18 [facility] Thin prep Papanicolaou smear with manual screeningOrdered By: Angelitomerylailyn Gopalrejialyssa on 11-04-2022 Thin prep Papanicolaou smear with manual screening 29 U/L 15-37 [facility] Thin prep Papanicolaou smear with manual screening 4 5-15 [facility] Absolute lymphocyte countOrd ered By: Jamisongarfield Herronrejialyssa on 09-30-2022 Lymphocytes Auto (Unsp spec) [#/Vol] 1.40 10*3/uL 0.83-4.51 [facility] Basophil percentageOrdered B y: Jamisongarfield Herronrejialyssa on 09-30-2022 Basophils/100 WBC (Bld) 0.5 % 0-1 [facility] Bilirubin [Mass/Vol] 0.80 mg/dL 0.20-1.00 [facility] Comment on above: For patients on eltr ombopag therapy, use of Dimension Bath TBIL is not recommended. Chloride [Moles/Vol] 113 mmol/L 98-107 [facility] Eosinophils/100 WBC (Bld) 2.2 % 0-5 [facility] Glucose [Mass/Vol] 80 mg/dL 74-106 [facility] Neutrophils (Bld) [#/Vol] 2.2 10*3/uL 2.0-7.7 [facility] Neutrophils/100 WBC (Bld) 52.0 % 47-70 [facility] Potassium [Moles/Vol] 3.8 mmol/L 3.5-5.1 [facility] Protein [Mass/Vol] 6.6 g/dL 6.4-8.2 [facility] Sodium [Moles/Vol] 142 mmol/L 136-145 [facility] WBC (Bld) [#/Vol] 4.1 10*3/uL 4.4-11.0 [facility] Blood erythrocytes count (nu mber/volume)Ordered By: Reji Reyna on 09-30-2022 RBC (Bld) [#/Vol] 2.92 10*6/uL 4.2-5.4 [place] Blood hemoglobin measurement (mass/volume)Ordered By: Reji Reyna on 09-30-2022 Hemoglobin (Bld) [Mass/Vol] 10.7 g/dL 12.0-15.0 [facility] Blood lymphocytes/100 leukoc ytesOrdered By: Reji Reyna on 09-30-2022 Lymphocytes/100 WBC (Bld) 33.9 % 19-41 [facility] Blood monocytes/100 leukocyt esOrdered By: Reji Reyna on 09-30-2022 Monocytes/100 WBC (Bld) 11.4 % 0-10 [facility] Blood platelet mean volumeOr dered By: Reji Reyna on 09-30-2022 Platelet mean volume (Bld) [Entitic vol] 9.8 fL 6.2-12.0 [facility] Determination of erythrocyte mean corpuscular volume (MCV)Ordered By: Reji Reyna on 09-30-2022 MCV (RBC) [Entitic vol] 108.2 fL 81-99 [facility] Hematocrit Auto (Bld) [Volum e fraction]Ordered By: Reji Reyna on 09-30-2022 Hematocrit (Bld) [Volume fraction] 31.6 % 37-47 [facility] Laboratory - Chemistry and C hemistry - challengeOrdered By: Reji Reyna on 09-30-2022 ALP [Catalytic activity/Vol] 77 U/L 45-117 [facility] ALT [Catalytic activity/Vol] 20 U/L 13-56 [facility] CO2 [Moles/Vol] 24.0 mmol/L 21.0-32.0 [facility] Globulin (S) [Mass/Vol] 3.9 g/dL 2.2-4.2 [facility] Urea nitrogen/Creatinine [Mass ratio] 20.1 mg/mg 10-20 [facility] Laboratory - Hematology and Cell countsOrdered By: meryldeer parkgarfield Reyna on 09-30-2022 Erythrocyte distribution width (RBC) [Entitic vol] 56.6 fL 35.1-43.9 [facility] Erythrocyte distribution width (RBC) [Ratio] 14.3 % 11.6-14.6 [facility] Immature granulocytes/100 WBC (Bld) 0.000 % 0.0-0.9 [facility] Comment on above: IG% - Immature Granu locytes (promyelocytes, myelocytes and metamyelocytes) > 1% indicates that a LEFT SHIFT is Present. MCH (RBC) [Entitic mass] 36.6 pg 27.0-32.0 [facility] Nucleated RBC/100 WBC (Bld) [Ratio] 0 % 0-5 [facility] MCHC Auto (RBC) [Mass/Vol]Or dered By: Reji Reyna on 09-30-2022 MCHC (RBC) [Mass/Vol] 33.9 g/dL 32-36 [facility] No Panel InformationOrdered By: meryldeer parkgarfield Reyna on 09-30-2022 Estimated GFR (MDRD) Amer 112 mL/min >60 [facility] Comment on above: GFR Calc Estimated GFR (MDRD) Non-Af Amer 92 mL/min >60 [facility] Comment on above: Non- GFR Calc Platelets bldOrdered By: Fredy edwardogarfield Reyna on 09-30-2022 Platelets (Bld) [#/Vol] 104 10*3/uL 150-450 [facility] Serum or plasma albumin yonatan urement (mass/volume)Ordered By: Reji Reyna on 09-30-2022 Albumin [Mass/Vol] 2.7 g/dL 3.2-5.0 [facility] Serum or plasma albumin/glob ulin mass ratioOrdered By: Reji Reyna on 09-30-2022 Albumin/Globulin [Mass ratio] 0.7 {ratio} 0.9-2.4 [facility] Serum or plasma calcium yonatan urement (mass/volume)Ordered By: Reji Reyna on 09-30-2022 Calcium [Mass/Vol] 8.8 mg/dL 8.5-10.1 [facility] Serum or plasma creatinine m easurement (mass/volume)Ordered By: Reji Reyna on 09-30-2022 Creatinine [Mass/Vol] 0.65 mg/dL 0.55-1.02 [facility] Comment on above: The validity of the calculated GFR & GFRAA in patients over 70 years has not been determined. Clinical correlation is essential. Serum or plasma urea nitroge n measurement (mass/volume)Ordered By: Reji Reyna on 09-30-2022 Urea nitrogen [Mass/Vol] 13 mg/dL 7-18 [facility] Thin prep Papanicolaou smear with manual screeningOrdered By: Reji Reyna on 09-30-2022 Thin prep Papanicolaou smear with manual screening 27 U/L 15-37 [facility] Thin prep Papanicolaou smear with manual screening 5 5-15 [facility] Absolute lymphocyte countOrd ered By: Reji Reyna on 09-19-2022 Lymphocytes Auto (Unsp spec) [#/Vol] 1.39 10*3/uL 0.83-4.51 [facility] Basophil percentageOrdered B y: Reji Reyna on 09-19-2022 Basophils/100 WBC (Bld) 0.5 % 0-1 [facility] Eosinophils/100 WBC (Bld) 2.0 % 0-5 [facility] Neutrophils (Bld) [#/Vol] 2.1 10*3/uL 2.0-7.7 [facility] Neutrophils/100 WBC (Bld) 51.6 % 47-70 [facility] WBC (Bld) [#/Vol] 4.1 10*3/uL 4.4-11.0 [facility] Blood erythrocytes count (nu mber/volume)Ordered By: Reji Reyna on 09-19-2022 RBC (Bld) [#/Vol] 2.84 10*6/uL 4.2-5.4 [place] Blood hemoglobin measurement (mass/volume)Ordered By: Reji Reyna on 09-19-2022 Hemoglobin (Bld) [Mass/Vol] 10.2 g/dL 12.0-15.0 [facility] Blood lymphocytes/100 leukoc ytesOrdered By: Reji Reyna on 09-19-2022 Lymphocytes/100 WBC (Bld) 34.3 % 19-41 [facility] Blood monocytes/100 leukocyt esOrdered By: Reji Reyan on 09-19-2022 Monocytes/100 WBC (Bld) 11.4 % 0-10 [facility] Blood platelet mean volumeOr dered By: Reji Reyna on 09-19-2022 Platelet mean volume (Bld) [Entitic vol] 9.9 fL 6.2-12.0 [facility] Determination of erythrocyte mean corpuscular volume (MCV)Ordered By: Reji Reyna on 09-19-2022 MCV (RBC) [Entitic vol] 106.3 fL 81-99 [facility] Hematocrit Auto (Bld) [Volum e fraction]Ordered By: Reji Reyna on 09-19-2022 Hematocrit (Bld) [Volume fraction] 30.2 % 37-47 [facility] Laboratory - Hematology and Cell countsOrdered By: Reji Reyna on 09-19-2022 Erythrocyte distribution width (RBC) [Entitic vol] 56.1 fL 35.1-43.9 [facility] Erythrocyte distribution width (RBC) [Ratio] 14.3 % 11.6-14.6 [facility] Immature granulocytes/100 WBC (Bld) 0.200 % 0.0-0.9 [facility] Comment on above: IG% - Immature Granu locytes (promyelocytes, myelocytes and metamyelocytes) > 1% indicates that a LEFT SHIFT is Present. MCH (RBC) [Entitic mass] 35.9 pg 27.0-32.0 [facility] Nucleated RBC/100 WBC (Bld) [Ratio] 0 % 0-5 [facility] MCHC Auto (RBC) [Mass/Vol]Or dered By: Reji Reyna on 09-19-2022 MCHC (RBC) [Mass/Vol] 33.8 g/dL 32-36 [facility] Platelets bldOrdered By: Fredy Reyna on 09-19-2022 Platelets (Bld) [#/Vol] 106 10*3/uL 150-450 [facility] Absolute lymphocyte countOrd ered By: Reji Reyna on 09-02-2022 Lymphocytes Auto (Unsp spec) [#/Vol] 1.47 10*3/uL 0.83-4.51 [facility] Basophil percentageOrdered B y: Reji Reyna on 09-02-2022 Basophils/100 WBC (Bld) 0.8 % 0-1 [facility] Bilirubin [Mass/Vol] 0.90 mg/dL 0.20-1.00 [facility] Comment on above: For patients on eltr ombopag therapy, use of Dimension Bath TBIL is not recommended. Chloride [Moles/Vol] 110 mmol/L 98-107 [facility] Eosinophils/100 WBC (Bld) 1.6 % 0-5 [facility] Glucose [Mass/Vol] 83 mg/dL 74-106 [facility] Neutrophils (Bld) [#/Vol] 3.6 10*3/uL 2.0-7.7 [facility] Neutrophils/100 WBC (Bld) 60.1 % 47-70 [facility] Potassium [Moles/Vol] 4.0 mmol/L 3.5-5.1 [facility] Protein [Mass/Vol] 7.5 g/dL 6.4-8.2 [facility] Sodium [Moles/Vol] 141 mmol/L 136-145 [facility] WBC (Bld) [#/Vol] 6.1 10*3/uL 4.4-11.0 [facility] Blood erythrocytes count (nu mber/volume)Ordered By: Reji Reyna on 09-02-2022 RBC (Bld) [#/Vol] 3.50 10*6/uL 4.2-5.4 [place] Blood hemoglobin measurement (mass/volume)Ordered By: Reji Reyna on 09-02-2022 Hemoglobin (Bld) [Mass/Vol] 12.2 g/dL 12.0-15.0 [facility] Blood lymphocytes/100 leukoc ytesOrdered By: Reji Reyna on 09-02-2022 Lymphocytes/100 WBC (Bld) 24.2 % 19-41 [facility] Blood monocytes/100 leukocyt esOrdered By: Jasdeer parkgarfield eRyna on 09-02-2022 Monocytes/100 WBC (Bld) 13.0 % 0-10 [facility] Blood platelet mean volumeOr dered By: Reji Reyna on 09-02-2022 Platelet mean volume (Bld) [Entitic vol] 9.7 fL 6.2-12.0 [facility] Determination of erythrocyte mean corpuscular volume (MCV)Ordered By: Reji Reyna on 09-02-2022 MCV (RBC) [Entitic vol] 105.7 fL 81-99 [facility] Hematocrit Auto (Bld) [Volum e fraction]Ordered By: Reji Reyna on 09-02-2022 Hematocrit (Bld) [Volume fraction] 37.0 % 37-47 [facility] Laboratory - Chemistry and C hemistry - challengeOrdered By: Reji Reyna on 09-02-2022 ALP [Catalytic activity/Vol] 93 U/L 45-117 [facility] ALT [Catalytic activity/Vol] 24 U/L 13-56 [facility] CO2 [Moles/Vol] 25.0 mmol/L 21.0-32.0 [facility] Globulin (S) [Mass/Vol] 4.5 g/dL 2.2-4.2 [facility] Urea nitrogen/Creatinine [Mass ratio] 17.3 mg/mg 10-20 [facility] Laboratory - Hematology and Cell countsOrdered By: Reji Reyna on 09-02-2022 Erythrocyte distribution width (RBC) [Entitic vol] 53.6 fL 35.1-43.9 [facility] Erythrocyte distribution width (RBC) [Ratio] 13.7 % 11.6-14.6 [facility] Immature granulocytes/100 WBC (Bld) 0.300 % 0.0-0.9 [facility] Comment on above: IG% - Immature Granu locytes (promyelocytes, myelocytes and metamyelocytes) > 1% indicates that a LEFT SHIFT is Present. MCH (RBC) [Entitic mass] 34.9 pg 27.0-32.0 [facility] Nucleated RBC/100 WBC (Bld) [Ratio] 0 % 0-5 [facility] MCHC Auto (RBC) [Mass/Vol]Or dered By: Reji Reyna on 09-02-2022 MCHC (RBC) [Mass/Vol] 33.0 g/dL 32-36 [facility] No Panel InformationOrdered By: Reji Reyna on 09-02-2022 Estimated GFR (MDRD) Amer 103 mL/min >60 [facility] Comment on above: GFR Calc Estimated GFR (MDRD) Non-Af Amer 85 mL/min >60 [facility] Comment on above: Non- GFR Calc Platelets bldOrdered By: Fredy Reyna on 09-02-2022 Platelets (Bld) [#/Vol] 104 10*3/uL 150-450 [facility] Serum or plasma albumin yonatan urement (mass/volume)Ordered By: Reji Reyna on 09-02-2022 Albumin [Mass/Vol] 3.0 g/dL 3.2-5.0 [facility] Serum or plasma albumin/glob ulin mass ratioOrdered By: Reji Reyna on 09-02-2022 Albumin/Globulin [Mass ratio] 0.7 {ratio} 0.9-2.4 [facility] Serum or plasma calcium yonatan urement (mass/volume)Ordered By: Reji Reyna on 09-02-2022 Calcium [Mass/Vol] 9.5 mg/dL 8.5-10.1 [facility] Serum or plasma creatinine m easurement (mass/volume)Ordered By: Reji Reyna on 09-02-2022 Creatinine [Mass/Vol] 0.69 mg/dL 0.55-1.02 [facility] Comment on above: The validity of the calculated GFR & GFRAA in patients over 70 years has not been determined. Clinical correlation is essential. Serum or plasma urea nitroge n measurement (mass/volume)Ordered By: Reji Reyna on 09-02-2022 Urea nitrogen [Mass/Vol] 12 mg/dL 7-18 [facility] Thin prep Papanicolaou smear with manual screeningOrdered By: Reji Reyna on 09-02-2022 Thin prep Papanicolaou smear with manual screening 27 U/L 15-37 [facility] Thin prep Papanicolaou smear with manual screening 6 5-15 [facility] Absolute lymphocyte countOrd ered By: Reji Reyna on 07-29-2022 Lymphocytes Auto (Unsp spec) [#/Vol] 1.03 10*3/uL 0.83-4.51 [facility] Basophil percentageOrdered B y: Reji Reyna on 07-29-2022 Basophils/100 WBC (Bld) 0.6 % 0-1 [facility] Bilirubin [Mass/Vol] 0.80 mg/dL 0.20-1.00 [facility] Comment on above: For patients on eltr ombopag therapy, use of Dimension Bath TBIL is not recommended. Chloride [Moles/Vol] 110 mmol/L 98-107 [facility] Eosinophils/100 WBC (Bld) 1.8 % 0-5 [facility] Glucose [Mass/Vol] 75 mg/dL 74-106 [facility] Neutrophils (Bld) [#/Vol] 3.1 10*3/uL 2.0-7.7 [facility] Neutrophils/100 WBC (Bld) 62.1 % 47-70 [facility] Potassium [Moles/Vol] 4.1 mmol/L 3.5-5.1 [facility] Protein [Mass/Vol] 6.9 g/dL 6.4-8.2 [facility] Sodium [Moles/Vol] 141 mmol/L 136-145 [facility] WBC (Bld) [#/Vol] 5.0 10*3/uL 4.4-11.0 [facility] Blood erythrocytes count (nu mber/volume)Ordered By: Reji Reyna on 07-29-2022 RBC (Bld) [#/Vol] 3.25 10*6/uL 4.2-5.4 [place] Blood hemoglobin measurement (mass/volume)Ordered By: Reji Reyna on 07-29-2022 Hemoglobin (Bld) [Mass/Vol] 11.6 g/dL 12.0-15.0 [facility] Blood lymphocytes/100 leukoc ytesOrdered By: Reji Reyna on 07-29-2022 Lymphocytes/100 WBC (Bld) 20.8 % 19-41 [facility] Blood monocytes/100 leukocyt esOrdered By: Reji Reyna on 07-29-2022 Monocytes/100 WBC (Bld) 14.5 % 0-10 [facility] Blood platelet mean volumeOr dered By: Reji Reyna on 07-29-2022 Platelet mean volume (Bld) [Entitic vol] 9.7 fL 6.2-12.0 [facility] Determination of erythrocyte mean corpuscular volume (MCV)Ordered By: Reji Reyna on 07-29-2022 MCV (RBC) [Entitic vol] 106.5 fL 81-99 [facility] Hematocrit Auto (Bld) [Volum e fraction]Ordered By: Reji Reyna on 07-29-2022 Hematocrit (Bld) [Volume fraction] 34.6 % 37-47 [facility] Laboratory - Chemistry and C hemistry - challengeOrdered By: Reji Reyna on 07-29-2022 ALP [Catalytic activity/Vol] 91 U/L 45-117 [facility] ALT [Catalytic activity/Vol] 23 U/L 13-56 [facility] CO2 [Moles/Vol] 24.0 mmol/L 21.0-32.0 [facility] Globulin (S) [Mass/Vol] 4.1 g/dL 2.2-4.2 [facility] Urea nitrogen/Creatinine [Mass ratio] 23.1 mg/mg 10-20 [facility] Laboratory - Hematology and Cell countsOrdered By: Reji Reyna on 07-29-2022 Erythrocyte distribution width (RBC) [Entitic vol] 53.7 fL 35.1-43.9 [facility] Erythrocyte distribution width (RBC) [Ratio] 13.7 % 11.6-14.6 [facility] Immature granulocytes/100 WBC (Bld) 0.200 % 0.0-0.9 [facility] Comment on above: IG% - Immature Granu locytes (promyelocytes, myelocytes and metamyelocytes) > 1% indicates that a LEFT SHIFT is Present. MCH (RBC) [Entitic mass] 35.7 pg 27.0-32.0 [facility] Nucleated RBC/100 WBC (Bld) [Ratio] 0 % 0-5 [facility] MCHC Auto (RBC) [Mass/Vol]Or dered By: Reji Reyna on 07-29-2022 MCHC (RBC) [Mass/Vol] 33.5 g/dL 32-36 [facility] No Panel InformationOrdered By: Reji Reyna on 07-29-2022 Estimated GFR (MDRD) Amer 131 mL/min >60 [facility] Comment on above: GFR Calc Estimated GFR (MDRD) Non-Af Amer 109 mL/min >60 [facility] Comment on above: Non- GFR Calc Platelets bldOrdered By: Fredy Reyna on 07-29-2022 Platelets (Bld) [#/Vol] 112 10*3/uL 150-450 [facility] Serum or plasma albumin yonatan urement (mass/volume)Ordered By: Reji Reyna on 07-29-2022 Albumin [Mass/Vol] 2.8 g/dL 3.2-5.0 [facility] Serum or plasma albumin/glob ulin mass ratioOrdered By: Reji Reyna on 07-29-2022 Albumin/Globulin [Mass ratio] 0.7 {ratio} 0.9-2.4 [facility] Serum or plasma calcium yonatan urement (mass/volume)Ordered By: Reji Reyna on 07-29-2022 Calcium [Mass/Vol] 9.4 mg/dL 8.5-10.1 [facility] Serum or plasma creatinine m easurement (mass/volume)Ordered By: Reji Reyna on 07-29-2022 Creatinine [Mass/Vol] 0.56 mg/dL 0.55-1.02 [facility] Comment on above: The validity of the calculated GFR & GFRAA in patients over 70 years has not been determined. Clinical correlation is essential. Serum or plasma urea nitroge n measurement (mass/volume)Ordered By: Reji Reyna on 07-29-2022 Urea nitrogen [Mass/Vol] 13 mg/dL - [facility] Thin prep Papanicolaou smear with manual screeningOrdered By: meryldeer parkgarfield Reyna on 07-29-2022 Thin prep Papanicolaou smear with manual screening 29 U/L [facility] Thin prep Papanicolaou smear with manual screening 7 - [facility] Absolute lymphocyte countOrd ered By: Reji Reyna on 07-01-2022 Lymphocytes Auto (Unsp spec) [#/Vol] 1.43 10*3/uL 0.83-4.51 [facility] Basophil percentageOrdered B y: Angelitomerylmichaelgarfield Reyna on 07-01-2022 Basophils/100 WBC (Bld) 1.0 % 0-1 [facility] Bilirubin [Mass/Vol] 0.60 mg/dL 0.20-1.00 [facility] Comment on above: For patients on eltr ombopag therapy, use of Dimension Bath TBIL is not recommended. Chloride [Moles/Vol] 109 mmol/L 98-107 [facility] Eosinophils/100 WBC (Bld) 2.0 % 0-5 [facility] Glucose [Mass/Vol] 80 mg/dL 74-106 [facility] Neutrophils (Bld) [#/Vol] 2.0 10*3/uL 2.0-7.7 [facility] Neutrophils/100 WBC (Bld) 49.1 % 47-70 [facility] Potassium [Moles/Vol] 4.1 mmol/L 3.5-5.1 [facility] Protein [Mass/Vol] 6.3 g/dL 6.4-8.2 [facility] Sodium [Moles/Vol] 140 mmol/L 136-145 [facility] WBC (Bld) [#/Vol] 4.1 10*3/uL 4.4-11.0 [facility] Blood erythrocytes count (nu mber/volume)Ordered By: Reji Reyna on 07-01-2022 RBC (Bld) [#/Vol] 3.07 10*6/uL 4.2-5.4 [place] Blood hemoglobin measurement (mass/volume)Ordered By: Reji Reyna on 07-01-2022 Hemoglobin (Bld) [Mass/Vol] 10.9 g/dL 12.0-15.0 [facility] Blood lymphocytes/100 leukoc ytesOrdered By: Reji Reyna on 07-01-2022 Lymphocytes/100 WBC (Bld) 35.3 % 19-41 [facility] Blood monocytes/100 leukocyt esOrdered By: Reji Reyna on 07-01-2022 Monocytes/100 WBC (Bld) 12.1 % 0-10 [facility] Blood platelet mean volumeOr dered By: Reji Reyna on 07-01-2022 Platelet mean volume (Bld) [Entitic vol] 10.1 fL 6.2-12.0 [facility] Determination of erythrocyte mean corpuscular volume (MCV)Ordered By: Reji Reyna on 07-01-2022 MCV (RBC) [Entitic vol] 103.9 fL 81-99 [facility] Hematocrit Auto (Bld) [Volum e fraction]Ordered By: Reji Reyna on 07-01-2022 Hematocrit (Bld) [Volume fraction] 31.9 % 37-47 [facility] Laboratory - Chemistry and C hemistry - challengeOrdered By: Reji Reyna on 07-01-2022 ALP [Catalytic activity/Vol] 93 U/L 45-117 [facility] ALT [Catalytic activity/Vol] 23 U/L 13-56 [facility] CO2 [Moles/Vol] 26.0 mmol/L 21.0-32.0 [facility] Globulin (S) [Mass/Vol] 3.5 g/dL 2.2-4.2 [facility] Urea nitrogen/Creatinine [Mass ratio] 16.4 mg/mg 10-20 [facility] Laboratory - Hematology and Cell countsOrdered By: Reji Reyna on 07-01-2022 Erythrocyte distribution width (RBC) [Entitic vol] 53.4 fL 35.1-43.9 [facility] Erythrocyte distribution width (RBC) [Ratio] 13.9 % 11.6-14.6 [facility] Immature granulocytes/100 WBC (Bld) 0.500 % 0.0-0.9 [facility] Comment on above: IG% - Immature Granu locytes (promyelocytes, myelocytes and metamyelocytes) > 1% indicates that a LEFT SHIFT is Present. MCH (RBC) [Entitic mass] 35.5 pg 27.0-32.0 [facility] Nucleated RBC/100 WBC (Bld) [Ratio] 0 % 0-5 [facility] MCHC Auto (RBC) [Mass/Vol]Or dered By: Reji Reyna on 07-01-2022 MCHC (RBC) [Mass/Vol] 34.2 g/dL 32-36 [facility] No Panel InformationOrdered By: Reji Reyna on 07-01-2022 Estimated GFR (MDRD) Amer 120 mL/min >60 [facility] Comment on above: GFR Calc Estimated GFR (MDRD) Non-Af Amer 99 mL/min >60 [facility] Comment on above: Non- GFR Calc Platelets bldOrdered By: Fredy Reyna on 07-01-2022 Platelets (Bld) [#/Vol] 104 10*3/uL 150-450 [facility] Serum or plasma albumin yonatan urement (mass/volume)Ordered By: Reji Reyna on 07-01-2022 Albumin [Mass/Vol] 2.8 g/dL 3.2-5.0 [facility] Serum or plasma albumin/glob ulin mass ratioOrdered By: Reji Reyna on 07-01-2022 Albumin/Globulin [Mass ratio] 0.8 {ratio} 0.9-2.4 [facility] Serum or plasma calcium yonatan urement (mass/volume)Ordered By: Reji Reyna on 07-01-2022 Calcium [Mass/Vol] 9.3 mg/dL 8.5-10.1 [facility] Serum or plasma creatinine m easurement (mass/volume)Ordered By: Reji Reyna on 07-01-2022 Creatinine [Mass/Vol] 0.61 mg/dL 0.55-1.02 [facility] Comment on above: The validity of the calculated GFR & GFRAA in patients over 70 years has not been determined. Clinical correlation is essential. Serum or plasma urea nitroge n measurement (mass/volume)Ordered By: Reji Reyna on 07-01-2022 Urea nitrogen [Mass/Vol] 10 mg/dL 7-18 [facility] Thin prep Papanicolaou smear with manual screeningOrdered By: Reji Reyna on 07-01-2022 Thin prep Papanicolaou smear with manual screening 28 U/L 15-37 [facility] Thin prep Papanicolaou smear with manual screening 5 5-15 [facility] XR RIBS 2V AP[facility]OBL RIGHT[facility] Absolute lymphocyte countOrd ered By: Reji Reyna on 06-03-2022 Lymphocytes Auto (Unsp spec) [#/Vol] 1.54 10*3/uL 0.83-4.51 [facility] Basophil percentageOrdered B y: Reji Reyna on 06-03-2022 Basophils/100 WBC (Bld) 0.5 % 0-1 [facility] Bilirubin [Mass/Vol] 0.60 mg/dL 0.20-1.00 [facility] Comment on above: For patients on eltr ombopag therapy, use of Dimension Bath TBIL is not recommended. Chloride [Moles/Vol] 108 mmol/L 98-107 [facility] Eosinophils/100 WBC (Bld) 2.4 % 0-5 [facility] Glucose [Mass/Vol] 86 mg/dL 74-106 [facility] Neutrophils (Bld) [#/Vol] 3.2 10*3/uL 2.0-7.7 [facility] Neutrophils/100 WBC (Bld) 58.6 % 47-70 [facility] Potassium [Moles/Vol] 4.2 mmol/L 3.5-5.1 [facility] Protein [Mass/Vol] 7.2 g/dL 6.4-8.2 [facility] Sodium [Moles/Vol] 141 mmol/L 136-145 [facility] WBC (Bld) [#/Vol] 5.5 10*3/uL 4.4-11.0 [facility] Blood erythrocytes count (nu mber/volume)Ordered By: Reji Reyna on 06-03-2022 RBC (Bld) [#/Vol] 3.73 10*6/uL 4.2-5.4 [place] Blood hemoglobin measurement (mass/volume)Ordered By: Reji Reyna on 06-03-2022 Hemoglobin (Bld) [Mass/Vol] 13.1 g/dL 12.0-15.0 [facility] Blood lymphocytes/100 leukoc ytesOrdered By: Reji Reyna on 06-03-2022 Lymphocytes/100 WBC (Bld) 27.8 % 19-41 [facility] Blood manual differential co mment interpretation (narrative result)Ordered By: Reji Reyna on 06-03-2022 Manual differential comment [place] (Bld) [Interp] SCANNED [facility] Blood monocytes/100 leukocyt esOrdered By: Reji Reyna on 06-03-2022 Monocytes/100 WBC (Bld) 10.3 % 0-10 [facility] Blood platelet mean volumeOr dered By: Reji Reyna on 06-03-2022 Platelet mean volume (Bld) [Entitic vol] 9.9 fL 6.2-12.0 [facility] Determination of erythrocyte mean corpuscular volume (MCV)Ordered By: Reji Reyna on 06-03-2022 MCV (RBC) [Entitic vol] 102.7 fL 81-99 [facility] Hematocrit Auto (Bld) [Volum e fraction]Ordered By: meryldeer parkgarfield Reyna on 06-03-2022 Hematocrit (Bld) [Volume fraction] 38.3 % 37-47 [facility] Laboratory - Chemistry and C hemistry - challengeOrdered By: meryldeer parkgarfield Reyna on 06-03-2022 ALP [Catalytic activity/Vol] 98 U/L 45-117 [facility] ALT [Catalytic activity/Vol] 33 U/L 13-56 [facility] CO2 [Moles/Vol] 26.0 mmol/L 21.0-32.0 [facility] Globulin (S) [Mass/Vol] 4.2 g/dL 2.2-4.2 [facility] Urea nitrogen/Creatinine [Mass ratio] 28.5 mg/mg 10-20 [facility] Laboratory - Hematology and Cell countsOrdered By: Reji Reyna on 06-03-2022 Anisocytosis Ql (Bld) 1+ [facility] Erythrocyte distribution width (RBC) [Entitic vol] 68.7 fL 35.1-43.9 [facility] Erythrocyte distribution width (RBC) [Ratio] 18.0 % 11.6-14.6 [facility] Immature granulocytes/100 WBC (Bld) 0.400 % 0.0-0.9 [facility] Comment on above: IG% - Immature Granu locytes (promyelocytes, myelocytes and metamyelocytes) > 1% indicates that a LEFT SHIFT is Present. MCH (RBC) [Entitic mass] 35.1 pg 27.0-32.0 [facility] Nucleated RBC/100 WBC (Bld) [Ratio] 0 % 0-5 [facility] MCHC Auto (RBC) [Mass/Vol]Or dered By: Reji Reyna on 06-03-2022 MCHC (RBC) [Mass/Vol] 34.2 g/dL 32-36 [facility] No Panel InformationOrdered By: Reji Reyna on 06-03-2022 Estimated GFR (MDRD) Amer 123 mL/min >60 [facility] Comment on above: GFR Calc Estimated GFR (MDRD) Non-Af Amer 101 mL/min >60 [facility] Comment on above: Non- GFR Calc Platelets bldOrdered By: Fredy Reyna on 06-03-2022 Platelets (Bld) [#/Vol] 113 10*3/uL 150-450 [facility] Serum or plasma albumin yonatan urement (mass/volume)Ordered By: Reji Reyna on 06-03-2022 Albumin [Mass/Vol] 3.0 g/dL 3.2-5.0 [facility] Serum or plasma albumin/glob ulin mass ratioOrdered By: Reji Reyna on 06-03-2022 Albumin/Globulin [Mass ratio] 0.7 {ratio} 0.9-2.4 [facility] Serum or plasma calcium yonatan urement (mass/volume)Ordered By: Reji Reyna on 06-03-2022 Calcium [Mass/Vol] 9.5 mg/dL 8.5-10.1 [facility] Serum or plasma creatinine m easurement (mass/volume)Ordered By: Reji Reyna on 06-03-2022 Creatinine [Mass/Vol] 0.60 mg/dL 0.55-1.02 [facility] Comment on above: The validity of the calculated GFR & GFRAA in patients over 70 years has not been determined. Clinical correlation is essential. Serum or plasma urea nitroge n measurement (mass/volume)Ordered By: Reji Reyna on 06-03-2022 Urea nitrogen [Mass/Vol] 17 mg/dL 7-18 [facility] Thin prep Papanicolaou smear with manual screeningOrdered By: Reji Reyna on 06-03-2022 Thin prep Papanicolaou smear with manual screening 33 U/L 15-37 [facility] Thin prep Papanicolaou smear with manual screening 7 5-15 [facility] Absolute lymphocyte countOrd ered By: Alejo Salcido on 05-06-2022 Lymphocytes Auto (Unsp spec) [#/Vol] 1.42 10*3/uL 0.83-4.51 [facility] Basophil percentageOrdered B y: Alejo Salcido on 05-06-2022 Basophils/100 WBC (Bld) 0.6 % 0-1 [facility] Bilirubin [Mass/Vol] 0.50 mg/dL 0.20-1.00 [facility] Comment on above: For patients on eltr ombopag therapy, use of Dimension Bath TBIL is not recommended. Chloride [Moles/Vol] 110 mmol/L 98-107 [facility] Eosinophils/100 WBC (Bld) 2.1 % 0-5 [facility] Glucose [Mass/Vol] 84 mg/dL 74-106 [facility] Neutrophils (Bld) [#/Vol] 2.6 10*3/uL 2.0-7.7 [facility] Neutrophils/100 WBC (Bld) 53.7 % 47-70 [facility] Potassium [Moles/Vol] 4.1 mmol/L 3.5-5.1 [facility] Protein [Mass/Vol] 6.9 g/dL 6.4-8.2 [facility] Sodium [Moles/Vol] 142 mmol/L 136-145 [facility] WBC (Bld) [#/Vol] 4.8 10*3/uL 4.4-11.0 [facility] Blood erythrocytes count (nu mber/volume)Ordered By: Alejo Salcido on 05-06-2022 RBC (Bld) [#/Vol] 3.47 10*6/uL 4.2-5.4 [place] Blood hemoglobin measurement (mass/volume)Ordered By: Alejo Salcido on 05-06-2022 Hemoglobin (Bld) [Mass/Vol] 11.1 g/dL 12.0-15.0 [facility] Blood lymphocytes/100 leukoc ytesOrdered By: Alejo Salcido on 05-06-2022 Lymphocytes/100 WBC (Bld) 29.8 % 19-41 [facility] Blood monocytes/100 leukocyt esOrdered By: Alejo Salcido on 05-06-2022 Monocytes/100 WBC (Bld) 13.4 % 0-10 [facility] Blood platelet mean volumeOr dered By: Aeljo Salcido on 05-06-2022 Platelet mean volume (Bld) [Entitic vol] 9.4 fL 6.2-12.0 [facility] Determination of erythrocyte mean corpuscular volume (MCV)Ordered By: Alejo Salcido on 05-06-2022 MCV (RBC) [Entitic vol] 98.3 fL 81-99 [facility] Hematocrit Auto (Bld) [Volum e fraction]Ordered By: Alejo Salcido on 05-06-2022 Hematocrit (Bld) [Volume fraction] 34.1 % 37-47 [facility] Laboratory - Chemistry and C hemistry - challengeOrdered By: Alejo Salcido on 05-06-2022 ALP [Catalytic activity/Vol] 117 U/L 45-117 [facility] ALT [Catalytic activity/Vol] 21 U/L 13-56 [facility] CO2 [Moles/Vol] 26.0 mmol/L 21.0-32.0 [facility] Globulin (S) [Mass/Vol] 4.3 g/dL 2.2-4.2 [facility] Urea nitrogen/Creatinine [Mass ratio] 15.9 mg/mg 10-20 [facility] Laboratory - Hematology and Cell countsOrdered By: Alejo Salcido on 05-06-2022 Anisocytosis Ql (Bld) 1+ [facility] Erythrocyte distribution width (RBC) [Entitic vol] 81.2 fL 35.1-43.9 [facility] Erythrocyte distribution width (RBC) [Ratio] 23.4 % 11.6-14.6 [facility] Immature granulocytes/100 WBC (Bld) 0.400 % 0.0-0.9 [facility] Comment on above: IG% - Immature Granu locytes (promyelocytes, myelocytes and metamyelocytes) > 1% indicates that a LEFT SHIFT is Present. MCH (RBC) [Entitic mass] 32.0 pg 27.0-32.0 [facility] Nucleated RBC/100 WBC (Bld) [Ratio] 0 % 0-5 [facility] MCHC Auto (RBC) [Mass/Vol]Or dered By: Alejo Salcido on 05-06-2022 MCHC (RBC) [Mass/Vol] 32.6 g/dL 32-36 [facility] No Panel InformationOrdered By: Alejo Salcido on 05-06-2022 Estimated GFR (MDRD) Amer 130 mL/min >60 [facility] Comment on above: GFR Calc Estimated GFR (MDRD) Non-Af Amer 108 mL/min >60 [facility] Comment on above: Non- GFR Calc Thyroid Stimulating Hormone (TSH) 1.29 uIU/mL 0.358-3.74 [facility] Platelets bldOrdered By: Levi Salcido on 05-06-2022 Platelets (Bld) [#/Vol] 110 10*3/uL 150-450 [facility] Serum or plasma albumin yonatan urement (mass/volume)Ordered By: Alejo Salcido on 05-06-2022 Albumin [Mass/Vol] 2.6 g/dL 3.2-5.0 [facility] Serum or plasma albumin/glob ulin mass ratioOrdered By: Alejo Salcido on 05-06-2022 Albumin/Globulin [Mass ratio] 0.6 {ratio} 0.9-2.4 [facility] Serum or plasma calcium yonatan urement (mass/volume)Ordered By: Alejo Salcido on 05-06-2022 Calcium [Mass/Vol] 9.1 mg/dL 8.5-10.1 [facility] Serum or plasma creatinine m easurement (mass/volume)Ordered By: Alejo Salcido on 05-06-2022 Creatinine [Mass/Vol] 0.57 mg/dL 0.55-1.02 [facility] Comment on above: The validity of the calculated GFR & GFRAA in patients over 70 years has not been determined. Clinical correlation is essential. Serum or plasma urea nitroge n measurement (mass/volume)Ordered By: Alejo Salcido on 05-06-2022 Urea nitrogen [Mass/Vol] 9 mg/dL 7-18 [facility] Thin prep Papanicolaou smear with manual screeningOrdered By: Alejo Salcido on 05-06-2022 Thin prep Papanicolaou smear with manual screening 26 U/L 15-37 [facility] Thin prep Papanicolaou smear with manual screening 6 5-15 [facility] Absolute lymphocyte countOrd ered By: Reji Reyna on 04-01-2022 Lymphocytes Auto (Unsp spec) [#/Vol] 1.69 10*3/uL 0.83-4.51 [facility] Basophil percentageOrdered B y: Reji Reyna on 04-01-2022 Basophils/100 WBC (Bld) 0.6 % 0-1 [facility] Bilirubin [Mass/Vol] 0.50 mg/dL 0.20-1.00 [facility] Comment on above: For patients on eltr ombopag therapy, use of Dimension Bath TBIL is not recommended. Chloride [Moles/Vol] 110 mmol/L 98-107 [facility] Eosinophils/100 WBC (Bld) 1.8 % 0-5 [facility] Glucose [Mass/Vol] 81 mg/dL 74-106 [facility] Neutrophils (Bld) [#/Vol] 2.7 10*3/uL 2.0-7.7 [facility] Neutrophils/100 WBC (Bld) 53.0 % 47-70 [facility] Potassium [Moles/Vol] 4.0 mmol/L 3.5-5.1 [facility] Protein [Mass/Vol] 6.9 g/dL 6.4-8.2 [facility] Sodium [Moles/Vol] 145 mmol/L 136-145 [facility] WBC (Bld) [#/Vol] 5.1 10*3/uL 4.4-11.0 [facility] Blood erythrocytes count (nu mber/volume)Ordered By: Reji Reyna on 04-01-2022 RBC (Bld) [#/Vol] 3.56 10*6/uL 4.2-5.4 [place] Blood hemoglobin measurement (mass/volume)Ordered By: Reji Reyna on 04-01-2022 Hemoglobin (Bld) [Mass/Vol] 10.5 g/dL 12.0-15.0 [facility] Blood lymphocytes/100 leukoc ytesOrdered By: Reji Reyna on 04-01-2022 Lymphocytes/100 WBC (Bld) 33.2 % 19-41 [facility] Blood monocytes/100 leukocyt esOrdered By: Reji Reyna on 04-01-2022 Monocytes/100 WBC (Bld) 11.2 % 0-10 [facility] Blood platelet mean volumeOr dered By: Reji Reyna on 04-01-2022 Platelet mean volume (Bld) [Entitic vol] 10.3 fL 6.2-12.0 [facility] Determination of erythrocyte mean corpuscular volume (MCV)Ordered By: Reji Reyna on 04-01-2022 MCV (RBC) [Entitic vol] 92.7 fL 81-99 [facility] Hematocrit Auto (Bld) [Volum e fraction]Ordered By: Reji Reyna on 04-01-2022 Hematocrit (Bld) [Volume fraction] 33.0 % 37-47 [facility] Laboratory - Chemistry and C hemistry - challengeOrdered By: Jasdeer parkgarfield Reyna on 04-01-2022 ALP [Catalytic activity/Vol] 75 U/L 45-117 [facility] ALT [Catalytic activity/Vol] 21 U/L 13-56 [facility] CO2 [Moles/Vol] 25.0 mmol/L 21.0-32.0 [facility] Globulin (S) [Mass/Vol] 4.3 g/dL 2.2-4.2 [facility] Urea nitrogen/Creatinine [Mass ratio] 18.4 mg/mg 10-20 [facility] Laboratory - Hematology and Cell countsOrdered By: Reji Reyna on 04-01-2022 Anisocytosis Ql (Bld) RARE [facility] Erythrocyte distribution width (RBC) [Entitic vol] 73.0 fL 35.1-43.9 [facility] Erythrocyte distribution width (RBC) [Ratio] 22.1 % 11.6-14.6 [facility] Immature granulocytes/100 WBC (Bld) 0.200 % 0.0-0.9 [facility] Comment on above: IG% - Immature Granu locytes (promyelocytes, myelocytes and metamyelocytes) > 1% indicates that a LEFT SHIFT is Present. MCH (RBC) [Entitic mass] 29.5 pg 27.0-32.0 [facility] Nucleated RBC/100 WBC (Bld) [Ratio] 0 % 0-5 [facility] MCHC Auto (RBC) [Mass/Vol]Or dered By: Reji Reyna on 04-01-2022 MCHC (RBC) [Mass/Vol] 31.8 g/dL 32-36 [facility] No Panel InformationOrdered By: Reji Reyna on 04-01-2022 Estimated GFR (MDRD) Amer 101 mL/min >60 [facility] Comment on above: GFR Calc Estimated GFR (MDRD) Non-Af Amer 83 mL/min >60 [facility] Comment on above: Non- GFR Calc Platelets bldOrdered By: Fredy Reyna on 04-01-2022 Platelets (Bld) [#/Vol] 127 10*3/uL 150-450 [facility] Serum or plasma albumin yonatan urement (mass/volume)Ordered By: Reji Reyna on 04-01-2022 Albumin [Mass/Vol] 2.6 g/dL 3.2-5.0 [facility] Serum or plasma albumin/glob ulin mass ratioOrdered By: Reji Reyna on 04-01-2022 Albumin/Globulin [Mass ratio] 0.6 {ratio} 0.9-2.4 [facility] Serum or plasma calcium yonatan urement (mass/volume)Ordered By: Reji Reyna on 04-01-2022 Calcium [Mass/Vol] 9.1 mg/dL 8.5-10.1 [facility] Serum or plasma creatinine m easurement (mass/volume)Ordered By: Reji Reyna on 04-01-2022 Creatinine [Mass/Vol] 0.71 mg/dL 0.55-1.02 [facility] Comment on above: The validity of the calculated GFR & GFRAA in patients over 70 years has not been determined. Clinical correlation is essential. Serum or plasma urea nitroge n measurement (mass/volume)Ordered By: Reji Reyna on 04-01-2022 Urea nitrogen [Mass/Vol] 13 mg/dL 7-18 [facility] Thin prep Papanicolaou smear with manual screeningOrdered By: Reji Reyna on 04-01-2022 Thin prep Papanicolaou smear with manual screening 24 U/L 15-37 [facility] Thin prep Papanicolaou smear with manual screening 10 5-15 [facility] CBC W Ordered Manual Differe ntial panel (Bld)on 03-22-2022 Basophils (Bld) [#/Vol] 0.05 10*3/uL <0.11 k/uL [facility] Basophils/100 WBC (Bld) 0.8 % [facility] Eosinophils (Bld) [#/Vol] 0.09 10*3/uL <0.46 k/uL [facility] Eosinophils/100 WBC (Bld) 1.4 % [facility] Erythrocyte distribution width (RBC) [Ratio] 20.3 % High 11.5 - 15.0 % [facility] Hematocrit (Bld) [Volume fraction] 33.9 % Low 36.0 - 46.0 % [facility] Hemoglobin (Bld) [Mass/Vol] 10.8 g/dL Low 11.5 - 15.5 g/dL [facility] Immature granulocytes (Bld) [#/Vol] <0.10 k/uL [facility] Immature granulocytes/100 WBC (Bld) 0.3 % [facility] Lymphocytes (Bld) [#/Vol] 1.43 10*3/uL 1.00 - 4.00 k/uL [facility] Lymphocytes/100 WBC (Bld) 22.8 % [facility] MCH (RBC) [Entitic mass] 27.6 pg 26.0 - 34.[address] [facility] MCHC (RBC) [Mass/Vol] 31.9 g/dL 30.5 - 36.0 g/dL [facility] MCV (RBC) [Entitic vol] 86.7 fL 80.0 - 100.[address] [facility] Monocytes (Bld) [#/Vol] 0.85 10*3/uL <0.87 k/uL [facility] Monocytes/100 WBC (Bld) 13.6 % [facility] Neutrophils (Bld) [#/Vol] 3.83 10*3/uL 1.45 - 7.50 k/uL [facility] Neutrophils/100 WBC (Bld) 61.1 % [facility] Platelet mean volume (Bld) [Entitic vol] 9.7 fL 9.0 - 12.[address] [facility] Platelets (Bld) [#/Vol] 136 10*3/uL Low 150 - 400 k/uL [facility] RBC (Bld) [#/Vol] 3.91 10*6/uL 3.90 - 5.2 0 m/uL [facility] WBC (Bld) [#/Vol] 6.27 10*3/uL 3.70 - 11.00 k/uL [facility] Transferrin receptor.soluble [Mass/Vol]on 03-15-2022 Transferrin receptor.soluble [Moles/Vol] 8.7 mg/L High 1.9 - 4.4 mg/L [facility] Comprehensive metabolic 2000 panelon 03-14-2022 Albumin [Mass/Vol] 3.6 g/dL Low 3.9 - 4.9 g/dL [facility] ALP [Catalytic activity/Vol] 100 U/L 34 - 123 U/L [facility] ALT [Catalytic activity/Vol] 14 U/L 7 - 38 U/L [facility] Anion gap [Moles/Vol] 9 mmol/L 9 - 18 mmol/L [facility] AST [Catalytic activity/Vol] 27 U/L 13 - 35 U/L [facility] Bilirubin [Mass/Vol] 0.6 mg/dL 0.2 - 1 .3 mg/dL [facility] Calcium [Mass/Vol] 9.4 mg/dL 8.5 - 10. 2 mg/dL [facility] Chloride [Moles/Vol] 104 mmol/L 97 - 10 5 mmol/L [facility] CO2 [Moles/Vol] 24 mmol/L 22 - 30 mmol/L [facility] Creatinine [Mass/Vol] 0.63 mg/dL 0.58 - 0.96 mg/dL [facility] Estimated Glomerular Filtration Rate 87 mL/min/1.73m >=60 mL/min/1.[address] [facility] Glucose [Mass/Vol] 120 mg/dL High 74 - 99 mg/dL [facility] Potassium [Moles/Vol] 3.9 mmol/L 3.7 - 5.1 mmol/L [facility] Protein [Mass/Vol] 7.3 g/dL 6.3 - 8.0 g/dL [facility] Sodium [Moles/Vol] 137 mmol/L 136 - 144 mmol/L [facility] Urea nitrogen [Mass/Vol] 14 mg/dL 7 - 21 mg/dL [facility] Iron and Iron binding capaci ty panelon 03-14-2022 Iron [Mass/Vol] 249 ug/dL High 41 - 186 ug/dL [facility] Iron binding capacity [Mass/Vol] 383 ug/dL 232 - 386 ug/dL [facility] Iron/TIBC [Molar ratio] 65.0 % High 15.0 - 57.0 % [facility] Laboratory - Chemistry and C hemistry - challengeon 03-14-2022 Ferritin [Mass/Vol] 45.9 ng/mL 14.7 - 205.1 ng/mL [facility] LDH [Catalytic activity/Vol] 194 U/L 135 - 214 U/L [facility] Laboratory - Hematology and Cell countson 03-14-2022 Reticulocytes (Bld) [#/Vol] 0.01082 10*3/uL 0.018 - 0.100 M/uL [facility] Reticulocytes (Bld) [#/Vol]o n 03-14-2022 Reticulocytes/100 RBC (Bld) 1.3 % 0.4 - 2.0 % [facility] Absolute lymphocyte countOrd ered By: Mitchell [facility] on 03-07-2022 Lymphocytes Auto (Unsp spec) [#/Vol] 1.39 10*3/uL 0.83-4.51 [facility] Basophil percentageOrdered B y: [place] [facility] on 03-07-2022 Basophils/100 WBC (Bld) 1.0 % 0-1 [facility] Eosinophils/100 WBC (Bld) 2.0 % 0-5 [facility] Neutrophils (Bld) [#/Vol] 2.0 10*3/uL 2.0-7.7 [facility] Neutrophils/100 WBC (Bld) 48.5 % 47-70 [facility] WBC (Bld) [#/Vol] 4.1 10*3/uL 4.4-11.0 [facility] Blood erythrocytes count (nu mber/volume)Ordered By: [place] [facility] on 03-07-2022 RBC (Bld) [#/Vol] 3.93 10*6/uL 4.2-5.4 [place] Blood hemoglobin measurement (mass/volume)Ordered By: [place] [facility] on 03-07-2022 Hemoglobin (Bld) [Mass/Vol] 10.8 g/dL 12.0-15.0 [facility] Blood lymphocytes/100 leukoc ytesOrdered By: [place] [facility] on 03-07-2022 Lymphocytes/100 WBC (Bld) 34.1 % 19-41 [facility] Blood monocytes/100 leukocyt esOrdered By: [place] [facility] on 03-07-2022 Monocytes/100 WBC (Bld) 14.2 % 0-10 [facility] Blood platelet mean volumeOr dered By: [place] [facility] on 03-07-2022 Platelet mean volume (Bld) [Entitic vol] 9.7 fL 6.2-12.0 [facility] Determination of erythrocyte mean corpuscular volume (MCV)Ordered By: [place] [facility] on 03-07-2022 MCV (RBC) [Entitic vol] 84.5 fL 81-99 [facility] Hematocrit Auto (Bld) [Volum e fraction]Ordered By: [facility] on 03-07-2022 Hematocrit (Bld) [Volume fraction] 33.2 % 37-47 [facility] Laboratory - Hematology and Cell countsOrdered By: [facility] on 03-07-2022 Erythrocyte distribution width (RBC) [Entitic vol] 50.5 fL 35.1-43.9 [facility] Erythrocyte distribution width (RBC) [Ratio] 16.3 % 11.6-14.6 [facility] Immature granulocytes/100 WBC (Bld) 0.200 % 0.0-0.9 [facility] Comment on above: IG% - Immature Granu locytes (promyelocytes, myelocytes and metamyelocytes) > 1% indicates that a LEFT SHIFT is Present. MCH (RBC) [Entitic mass] 27.5 pg 27.0-32.0 [facility] Nucleated RBC/100 WBC (Bld) [Ratio] 0 % 0-5 [facility] MCHC Auto (RBC) [Mass/Vol]Or dered By: [place] [facility] on 03-07-2022 MCHC (RBC) [Mass/Vol] 32.5 g/dL 32-36 [facility] Comment on above: Delta: 30.2 on 03/04-044 Platelets bldOrdered By: Cesar cruz Living on 03-07-2022 Platelets (Bld) [#/Vol] 155 10*3/uL 150-450 [facility] Absolute lymphocyte countOrd ered By: Alejo Salcido on 03-04-2022 Lymphocytes Auto (Unsp spec) [#/Vol] 1.30 10*3/uL 0.83-4.51 [facility] Basophil percentageOrdered B y: Alejo Salcido on 03-04-2022 Basophils/100 WBC (Bld) 0.5 % 0-1 [facility] Bilirubin [Mass/Vol] 0.50 mg/dL 0.20-1.00 [facility] Comment on above: For patients on eltr ombopag therapy, use of Dimension Bath TBIL is not recommended. Chloride [Moles/Vol] 113 mmol/L 98-107 [facility] Eosinophils/100 WBC (Bld) 2.8 % 0-5 [facility] Glucose [Mass/Vol] 90 mg/dL 74-106 [facility] Neutrophils (Bld) [#/Vol] 2.1 10*3/uL 2.0-7.7 [facility] Neutrophils/100 WBC (Bld) 51.4 % 47-70 [facility] Potassium [Moles/Vol] 4.4 mmol/L 3.5-5.1 [facility] Protein [Mass/Vol] 7.2 g/dL 6.4-8.2 [facility] Sodium [Moles/Vol] 143 mmol/L 136-145 [facility] WBC (Bld) [#/Vol] 4.0 10*3/uL 4.4-11.0 [facility] Blood erythrocytes count (nu mber/volume)Ordered By: Alejo Salcido on 03-04-2022 RBC (Bld) [#/Vol] 2.94 10*6/uL 4.2-5.4 [place] Blood hemoglobin measurement (mass/volume)Ordered By: Alejo Salcido on 03-04-2022 Hemoglobin (Bld) [Mass/Vol] 7.7 g/dL 12.0-15.0 [facility] Blood lymphocytes/100 leukoc ytesOrdered By: Alejo Salcido on 03-04-2022 Lymphocytes/100 WBC (Bld) 32.5 % 19-41 [facility] Blood monocytes/100 leukocyt esOrdered By: Alejo Salcido on 03-04-2022 Monocytes/100 WBC (Bld) 12.8 % 0-10 [facility] Blood platelet mean volumeOr dered By: Alejo Salcido on 03-04-2022 Platelet mean volume (Bld) [Entitic vol] 11.0 fL 6.2-12.0 [facility] Determination of erythrocyte mean corpuscular volume (MCV)Ordered By: Alejo Salcido on 03-04-2022 MCV (RBC) [Entitic vol] 86.7 fL 81-99 [facility] Hematocrit Auto (Bld) [Volum e fraction]Ordered By: Alejo Salcido on 03-04-2022 Hematocrit (Bld) [Volume fraction] 25.5 % 37-47 [facility] Laboratory - Chemistry and C hemistry - challengeOrdered By: Alejo Salcido on 03-04-2022 ALP [Catalytic activity/Vol] 87 U/L 45-117 [facility] ALT [Catalytic activity/Vol] 19 U/L 13-56 [facility] CO2 [Moles/Vol] 25.0 mmol/L 21.0-32.0 [facility] Globulin (S) [Mass/Vol] 4.5 g/dL 2.2-4.2 [facility] Urea nitrogen/Creatinine [Mass ratio] 18.4 mg/mg 10-20 [facility] Laboratory - Hematology and Cell countsOrdered By: Alejo Salcido on 03-04-2022 Erythrocyte distribution width (RBC) [Entitic vol] 53.1 fL 35.1-43.9 [facility] Erythrocyte distribution width (RBC) [Ratio] 17.1 % 11.6-14.6 [facility] Immature granulocytes/100 WBC (Bld) 0.000 % 0.0-0.9 [facility] Comment on above: IG% - Immature Granu locytes (promyelocytes, myelocytes and metamyelocytes) > 1% indicates that a LEFT SHIFT is Present. MCH (RBC) [Entitic mass] 26.2 pg 27.0-32.0 [facility] Nucleated RBC/100 WBC (Bld) [Ratio] 0 % 0-5 [facility] MCHC Auto (RBC) [Mass/Vol]Or dered By: Alejo Salcido on 03-04-2022 MCHC (RBC) [Mass/Vol] 30.2 g/dL 32-36 [facility] No Panel InformationOrdered By: Alejo Salcido on 03-04-2022 Estimated GFR (MDRD) Amer 101 mL/min >60 [facility] Comment on above: GFR Calc Estimated GFR (MDRD) Non-Af Amer 83 mL/min >60 [facility] Comment on above: Non- GFR Calc Platelets bldOrdered By: Levi Salcido on 03-04-2022 Platelets (Bld) [#/Vol] 163 10*3/uL 150-450 [facility] Serum or plasma albumin yonatan urement (mass/volume)Ordered By: Alejo Salcido on 03-04-2022 Albumin [Mass/Vol] 2.7 g/dL 3.2-5.0 [facility] Serum or plasma albumin/glob ulin mass ratioOrdered By: Alejo Salcido on 03-04-2022 Albumin/Globulin [Mass ratio] 0.6 {ratio} 0.9-2.4 [facility] Serum or plasma calcium yonatan urement (mass/volume)Ordered By: Alejo Salcido on 03-04-2022 Calcium [Mass/Vol] 9.1 mg/dL 8.5-10.1 [facility] Serum or plasma creatinine m easurement (mass/volume)Ordered By: Alejo Salcido on 03-04-2022 Creatinine [Mass/Vol] 0.71 mg/dL 0.55-1.02 [facility] Comment on above: The validity of the calculated GFR & GFRAA in patients over 70 years has not been determined. Clinical correlation is essential. Serum or plasma urea nitroge n measurement (mass/volume)Ordered By: Alejo Salcido on 03-04-2022 Urea nitrogen [Mass/Vol] 13 mg/dL 7-18 [facility] Thin prep Papanicolaou smear with manual screeningOrdered By: Alejo Salcido on 03-04-2022 Thin prep Papanicolaou smear with manual screening 22 U/L 15-37 [facility] Thin prep Papanicolaou smear with manual screening 5 5-15 [facility] Culture, urineOrdered By: Angelito Reyna on 02-23-2022 Bacteria identified Cx Nom (U) Culture exhibits no growth. [facility] Bilirubin Test strip Ql (U)O rdered By: Reji Reyna on 02-21-2022 Bilirubin Ql (U) Negative Negative [facility] Ketones Test strip Ql (U)Ord ered By: Reji Reyna on 02-21-2022 Ketones Ql (U) 5 mg/dl Negative [facility] Nitrite Test strip Ql (U)Ord ered By: Reji Reyna on 02-21-2022 Nitrite Ql (U) Negative Negative [facility] Protein Test strip Ql (U)Ord ered By: Reji Reyna on 02-21-2022 Protein Ql (U) 30 mg/dl Negative [facility] Urine blood detectionOrdered By: Reji Reyna on 02-21-2022 RBC Ql (U) 250 /ul Negative [facility] Urine clarityOrdered By: Fredy Reyna on 02-21-2022 Clarity (U) Cloudy Clear [facility] Urine color determinationOrd ered By: Reji Reyna on 02-21-2022 Color (U) Starla Yellow [facility] Urine glucose detectionOrder ed By: Reji Reyna on 02-21-2022 Glucose Ql (U) Normal mg/dl Normal [facility] Urine leukocyte esterase det ection by dipstickOrdered By: Reji Reyna on 02-21-2022 Leukocyte esterase Test strip Ql (U) 25 /ul Negative [facility] Urine pHOrdered By: Deloris Reyna on 02-21-2022 pH (U) 6.0 [pH] 5.0 - 8.0 [facility] Urine specific gravity measu rementOrdered By: Reji Reyna on 02-21-2022 Specific gravity (U) [Rel density] 1.015 1.002-1.030 [facility] Urobilinogen Auto test strip Ql (U)Ordered By: Reji Reyna on 02-21-2022 Urobilinogen Ql (U) Normal mg/dl Normal [facility] Absolute lymphocyte countOrd ered By: Alejo Salcido on 02-04-2022 Lymphocytes Auto (Unsp spec) [#/Vol] 1.51 10*3/uL 0.83-4.51 [facility] Basophil percentageOrdered B y: Alejo Salcido on 02-04-2022 Basophils/100 WBC (Bld) 1.0 % 0-1 [facility] Bilirubin [Mass/Vol] 0.50 mg/dL 0.20-1.00 [facility] Comment on above: For patients on eltr ombopag therapy, use of Dimension Bath TBIL is not recommended. Chloride [Moles/Vol] 111 mmol/L 98-107 [facility] Eosinophils/100 WBC (Bld) 2.5 % 0-5 [facility] Glucose [Mass/Vol] 79 mg/dL 74-106 [facility] Neutrophils (Bld) [#/Vol] 2.9 10*3/uL 2.0-7.7 [facility] Neutrophils/100 WBC (Bld) 55.7 % 47-70 [facility] Potassium [Moles/Vol] 4.1 mmol/L 3.5-5.1 [facility] Protein [Mass/Vol] 7.2 g/dL 6.4-8.2 [facility] Sodium [Moles/Vol] 140 mmol/L 136-145 [facility] WBC (Bld) [#/Vol] 5.2 10*3/uL 4.4-11.0 [facility] Blood erythrocytes count (nu mber/volume)Ordered By: Alejo Salcido on 02-04-2022 RBC (Bld) [#/Vol] 3.06 10*6/uL 4.2-5.4 [place] Blood hemoglobin measurement (mass/volume)Ordered By: Alejo Salcido on 02-04-2022 Hemoglobin (Bld) [Mass/Vol] 8.3 g/dL 12.0-15.0 [facility] Blood lymphocytes/100 leukoc ytesOrdered By: Alejo Salcido on 02-04-2022 Lymphocytes/100 WBC (Bld) 29.2 % 19-41 [facility] Blood monocytes/100 leukocyt esOrdered By: Alejo Salcido on 02-04-2022 Monocytes/100 WBC (Bld) 11.2 % 0-10 [facility] Blood platelet mean volumeOr dered By: Alejo Salcido on 02-04-2022 Platelet mean volume (Bld) [Entitic vol] 9.5 fL 6.2-12.0 [facility] Determination of erythrocyte mean corpuscular volume (MCV)Ordered By: Alejo Salcido on 02-04-2022 MCV (RBC) [Entitic vol] 87.3 fL 81-99 [facility] Hematocrit Auto (Bld) [Volum e fraction]Ordered By: Alejo Salcido on 02-04-2022 Hematocrit (Bld) [Volume fraction] 26.7 % 37-47 [facility] Laboratory - Chemistry and C hemistry - challengeOrdered By: Alejo Salcido on 02-04-2022 ALP [Catalytic activity/Vol] 87 U/L 45-117 [facility] ALT [Catalytic activity/Vol] 20 U/L 13-56 [facility] CO2 [Moles/Vol] 25.0 mmol/L 21.0-32.0 [facility] Globulin (S) [Mass/Vol] 4.5 g/dL 2.2-4.2 [facility] Urea nitrogen/Creatinine [Mass ratio] 20.9 mg/mg 10-20 [facility] Laboratory - Hematology and Cell countsOrdered By: Alejo Salcido on 02-04-2022 Erythrocyte distribution width (RBC) [Entitic vol] 54.0 fL 35.1-43.9 [facility] Erythrocyte distribution width (RBC) [Ratio] 17.1 % 11.6-14.6 [facility] Immature granulocytes/100 WBC (Bld) 0.400 % 0.0-0.9 [facility] Comment on above: IG% - Immature Granu locytes (promyelocytes, myelocytes and metamyelocytes) > 1% indicates that a LEFT SHIFT is Present. MCH (RBC) [Entitic mass] 27.1 pg 27.0-32.0 [facility] Nucleated RBC/100 WBC (Bld) [Ratio] 0 % 0-5 [facility] MCHC Auto (RBC) [Mass/Vol]Or dered By: Alejo Salcido on 02-04-2022 MCHC (RBC) [Mass/Vol] 31.1 g/dL 32-36 [facility] No Panel InformationOrdered By: Alejo Salcido on 02-04-2022 Estimated GFR (MDRD) Amer 107 mL/min >60 [facility] Comment on above: GFR Calc Estimated GFR (MDRD) Non-Af Amer 89 mL/min >60 [facility] Comment on above: Non- GFR Calc Platelets bldOrdered By: Levi Salcido on 02-04-2022 Platelets (Bld) [#/Vol] 155 10*3/uL 150-450 [facility] Serum or plasma albumin yonatan urement (mass/volume)Ordered By: Alejo Salcido on 02-04-2022 Albumin [Mass/Vol] 2.7 g/dL 3.2-5.0 [facility] Serum or plasma albumin/glob ulin mass ratioOrdered By: Alejo Salcido on 02-04-2022 Albumin/Globulin [Mass ratio] 0.6 {ratio} 0.9-2.4 [facility] Serum or plasma calcium yonatan urement (mass/volume)Ordered By: Alejo Salcido on 02-04-2022 Calcium [Mass/Vol] 8.9 mg/dL 8.5-10.1 [facility] Serum or plasma creatinine m easurement (mass/volume)Ordered By: Alejo Salcido on 02-04-2022 Creatinine [Mass/Vol] 0.67 mg/dL 0.55-1.02 [facility] Comment on above: The validity of the calculated GFR & GFRAA in patients over 70 years has not been determined. Clinical correlation is essential. Serum or plasma urea nitroge n measurement (mass/volume)Ordered By: Alejo Salcido on 02-04-2022 Urea nitrogen [Mass/Vol] 14 mg/dL 7-18 [facility] Thin prep Papanicolaou smear with manual screeningOrdered By: Alejo Salcido on 02-04-2022 Thin prep Papanicolaou smear with manual screening 20 U/L 15-37 [facility] Thin prep Papanicolaou smear with manual screening 4 5-15 [facility] Absolute lymphocyte countOrd ered By: Alejo Salcido on 01-17-2022 Lymphocytes Auto (Unsp spec) [#/Vol] 1.45 10*3/uL 0.83-4.51 [facility] Basophil percentageOrdered B y: Alejo Salcido on 01-17-2022 Basophils/100 WBC (Bld) 0.8 % 0-1 [facility] Eosinophils/100 WBC (Bld) 1.9 % 0-5 [facility] Neutrophils (Bld) [#/Vol] 3.0 10*3/uL 2.0-7.7 [facility] Neutrophils/100 WBC (Bld) 56.3 % 47-70 [facility] WBC (Bld) [#/Vol] 5.3 10*3/uL 4.4-11.0 [facility] Blood erythrocytes count (nu mber/volume)Ordered By: Alejo Salcido on 01-17-2022 RBC (Bld) [#/Vol] 2.79 10*6/uL 4.2-5.4 [place] Blood hemoglobin measurement (mass/volume)Ordered By: Alejo Salcido on 01-17-2022 Hemoglobin (Bld) [Mass/Vol] 8.0 g/dL 12.0-15.0 [facility] Blood lymphocytes/100 leukoc ytesOrdered By: Alejo Salcido on 01-17-2022 Lymphocytes/100 WBC (Bld) 27.4 % 19-41 [facility] Blood monocytes/100 leukocyt esOrdered By: Alejo Salcido on 01-17-2022 Monocytes/100 WBC (Bld) 13.4 % 0-10 [facility] Blood platelet mean volumeOr dered By: Alejo Salcido on 01-17-2022 Platelet mean volume (Bld) [Entitic vol] 9.9 fL 6.2-12.0 [facility] Determination of erythrocyte mean corpuscular volume (MCV)Ordered By: Alejo Salcido on 01-17-2022 MCV (RBC) [Entitic vol] 88.9 fL 81-99 [facility] Hematocrit Auto (Bld) [Volum e fraction]Ordered By: Alejo Salcido on 01-17-2022 Hematocrit (Bld) [Volume fraction] 24.8 % 37-47 [facility] Laboratory - Hematology and Cell countsOrdered By: Alejo Salcido on 01-17-2022 Erythrocyte distribution width (RBC) [Entitic vol] 58.2 fL 35.1-43.9 [facility] Erythrocyte distribution width (RBC) [Ratio] 18.2 % 11.6-14.6 [facility] Immature granulocytes/100 WBC (Bld) 0.200 % 0.0-0.9 [facility] Comment on above: IG% - Immature Granu locytes (promyelocytes, myelocytes and metamyelocytes) > 1% indicates that a LEFT SHIFT is Present. MCH (RBC) [Entitic mass] 28.7 pg 27.0-32.0 [facility] Nucleated RBC/100 WBC (Bld) [Ratio] 0 % 0-5 [facility] MCHC Auto (RBC) [Mass/Vol]Or dered By: Alejo Salcido on 01-17-2022 MCHC (RBC) [Mass/Vol] 32.3 g/dL 32-36 [facility] Platelets bldOrdered By: Levi Salcido on 01-17-2022 Platelets (Bld) [#/Vol] 169 10*3/uL 150-450 [facility] Absolute lymphocyte countOrd ered By: Alejo Salcido on 01-03-2022 Lymphocytes Auto (Unsp spec) [#/Vol] 1.25 10*3/uL 0.83-4.51 [facility] Basophil percentageOrdered B y: Alejo Salcido on 01-03-2022 Basophils/100 WBC (Bld) 0.5 % 0-1 [facility] Eosinophils/100 WBC (Bld) 2.1 % 0-5 [facility] Neutrophils (Bld) [#/Vol] 2.5 10*3/uL 2.0-7.7 [facility] Neutrophils/100 WBC (Bld) 57.2 % 47-70 [facility] WBC (Bld) [#/Vol] 4.4 10*3/uL 4.4-11.0 [facility] Blood erythrocytes count (nu mber/volume)Ordered By: Alejo Salcido on 01-03-2022 RBC (Bld) [#/Vol] 2.97 10*6/uL 4.2-5.4 [place] Blood hemoglobin measurement (mass/volume)Ordered By: Alejo Salcido on 01-03-2022 Hemoglobin (Bld) [Mass/Vol] 8.3 g/dL 12.0-15.0 [facility] Blood lymphocytes/100 leukoc ytesOrdered By: Alejo Salcido on 01-03-2022 Lymphocytes/100 WBC (Bld) 28.6 % 19-41 [facility] Blood monocytes/100 leukocyt esOrdered By: Alejo Salcido on 01-03-2022 Monocytes/100 WBC (Bld) 11.4 % 0-10 [facility] Blood platelet mean volumeOr dered By: Alejo Salcido on 01-03-2022 Platelet mean volume (Bld) [Entitic vol] 10.0 fL 6.2-12.0 [facility] Determination of erythrocyte mean corpuscular volume (MCV)Ordered By: Alejo Salcido on 01-03-2022 MCV (RBC) [Entitic vol] 86.5 fL 81-99 [facility] Hematocrit Auto (Bld) [Volum e fraction]Ordered By: Alejo Salcido on 01-03-2022 Hematocrit (Bld) [Volume fraction] 25.7 % 37-47 [facility] Laboratory - Hematology and Cell countsOrdered By: Alejo Salcido on 01-03-2022 Erythrocyte distribution width (RBC) [Entitic vol] 59.0 fL 35.1-43.9 [facility] Erythrocyte distribution width (RBC) [Ratio] 18.8 % 11.6-14.6 [facility] Immature granulocytes/100 WBC (Bld) 0.200 % 0.0-0.9 [facility] Comment on above: IG% - Immature Granu locytes (promyelocytes, myelocytes and metamyelocytes) > 1% indicates that a LEFT SHIFT is Present. MCH (RBC) [Entitic mass] 27.9 pg 27.0-32.0 [facility] Nucleated RBC/100 WBC (Bld) [Ratio] 0 % 0-5 [facility] MCHC Auto (RBC) [Mass/Vol]Or dered By: Alejo Salcido on 01-03-2022 MCHC (RBC) [Mass/Vol] 32.3 g/dL 32-36 [facility] Platelets bldOrdered By: Levi Salcido on 01-03-2022 Platelets (Bld) [#/Vol] 154 10*3/uL 150-450 [facility] CNOVon 01-02-2022 CNOV Office Visit (CRISTINE ) CHRISTIAN LANDRUM ([id number]) 1935 F Date Time Provider Department 01/02/22 1:45 PM BASILIA HERNÁNDEZ During your visit today, we recorded the following information about you: Blood pressure Weight Height 126/62 74.8 kg 1.676 m Basilia Hernández MD 01/02/2022 2:12 PM Signed Female Pelvic Medicine AND Reconstructive Surgery Follow-Up [...] stool Pain: no Abnormal Vaginal Discharge: no [employer]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: Last Pap: Date:04/18/20 NIL; Last Mammogram: [...] Medical Decision Making Level: 4 - Moderate MD Basilia Byers MD 01/02/2022 2:08 PM Signed Follow up with Vikash Sylvester NP in 6 months or sooner as needed Referring Provider: GALINA IRAHETA [[id number]] Allergies As of Date: 01/02/2022 Noted Allergy Reaction CLINDAMYCIN 03/05/2016 14 - [...] skin reaction with skin tears ARTHROTEC 50 (DICLOFENAC-MISOPROS*2007 6 - Diarrhea BLEPHAMIDE (SULFACETAMIDE-PREDNIS*06/2010 3 - Cough DITROPAN (OXYBUTYNIN) 06/20/2020 14 [...] - Unknown ZESTRIL (LISINOPRIL) 07/08/2007 Date Reviewed: 01/02/2022 Reviewed by: Basilia Hernández MD - Fully Assessed Reason for Visit: Recurrent UTI [Other] Primary Visit Diagnosis:Recurrent UTI [N39.0] Other Visit Diagnoses:History of ESBL E. coli infection [Z86.19] Vaginal atrophy [N95.2] Order(s):UA DIP, URINE (POC) [9028635] Order #: [id number]. #:[id number] estr (more content not included)... Normal [facility] UA DIP, URINE (POC)on 2021 BILIRUBIN UA (POCT) Negative Negative [facility] CLARITY UA (POCT) Clear [facility] COLOR UA (POCT) Yellow [facility] GLUCOSE UA (POCT) Negative Negative mg/dL [facility] HEMOGLOBIN/BLOOD UA (POCT) Negative Negative [facility] KETONE UA (POCT) Negative Negative mg/dL [facility] LEUKOCYTES UA (POCT) Negative Negative [facility] NITRITE UA (POCT) Negative Negative [facility] PH UA (POCT) 6.5 4.5 - 8.0 [facility] Protein Ql (U) Negative Negative mg/dL [facility] SPECIFIC GRAVITY UA (POCT) 1.010 1.005 - 1.030 [facility] UROBILINOGEN UA (POCT) 0.2 E.U./dL [place] l E.U./dL [facility] Absolute lymphocyte countOrd ered By: Alejo Salcido on 12-31-2021 Lymphocytes Auto (Unsp spec) [#/Vol] 1.26 10*3/uL 0.83-4.51 [facility] Basophil percentageOrdered B y: Alejo Salcido on 12-31-2021 Basophils/100 WBC (Bld) 0.3 % 0-1 [facility] Bilirubin [Mass/Vol] 0.50 mg/dL 0.20-1.00 [facility] Comment on above: For patients on eltr ombopag therapy, use of Dimension Bath TBIL is not recommended. Chloride [Moles/Vol] 113 mmol/L 98-107 [facility] Eosinophils/100 WBC (Bld) 1.6 % 0-5 [facility] Glucose [Mass/Vol] 93 mg/dL 74-106 [facility] Neutrophils (Bld) [#/Vol] 1.8 10*3/uL 2.0-7.7 [facility] Neutrophils/100 WBC (Bld) 49.5 % 47-70 [facility] Potassium [Moles/Vol] 4.3 mmol/L 3.5-5.1 [facility] Protein [Mass/Vol] 6.2 g/dL 6.4-8.2 [facility] Sodium [Moles/Vol] 144 mmol/L 136-145 [facility] WBC (Bld) [#/Vol] 3.6 10*3/uL 4.4-11.0 [facility] Blood erythrocytes count (nu mber/volume)Ordered By: Alejo Salcido on 12-31-2021 RBC (Bld) [#/Vol] 2.73 10*6/uL 4.2-5.4 [place] Blood hemoglobin measurement (mass/volume)Ordered By: Alejo Salcido on 12-31-2021 Hemoglobin (Bld) [Mass/Vol] 7.5 g/dL 12.0-15.0 [facility] Blood lymphocytes/100 leukoc ytesOrdered By: Alejo Salcido on 12-31-2021 Lymphocytes/100 WBC (Bld) 34.6 % 19-41 [facility] Blood monocytes/100 leukocyt esOrdered By: Alejo Salcido on 12-31-2021 Monocytes/100 WBC (Bld) 13.7 % 0-10 [facility] Blood platelet mean volumeOr dered By: Alejo Salcido on 12-31-2021 Platelet mean volume (Bld) [Entitic vol] 10.4 fL 6.2-12.0 [facility] Determination of erythrocyte mean corpuscular volume (MCV)Ordered By: Alejo Salcido on 12-31-2021 MCV (RBC) [Entitic vol] 88.3 fL 81-99 [facility] Hematocrit Auto (Bld) [Volum e fraction]Ordered By: Alejo Salcido on 12-31-2021 Hematocrit (Bld) [Volume fraction] 24.1 % 37-47 [facility] Laboratory - Chemistry and C hemistry - challengeOrdered By: Alejo Salcido on 12-31-2021 ALP [Catalytic activity/Vol] 75 U/L 45-117 [facility] ALT [Catalytic activity/Vol] 25 U/L 13-56 [facility] CO2 [Moles/Vol] 22.0 mmol/L 21.0-32.0 [facility] Globulin (S) [Mass/Vol] 3.9 g/dL 2.2-4.2 [facility] Urea nitrogen/Creatinine [Mass ratio] 13.7 mg/mg 10-20 [facility] Laboratory - Hematology and Cell countsOrdered By: Alejo Salcido on 12-31-2021 Erythrocyte distribution width (RBC) [Entitic vol] 61.0 fL 35.1-43.9 [facility] Erythrocyte distribution width (RBC) [Ratio] 19.1 % 11.6-14.6 [facility] Immature granulocytes/100 WBC (Bld) 0.300 % 0.0-0.9 [facility] Comment on above: IG% - Immature Granu locytes (promyelocytes, myelocytes and metamyelocytes) > 1% indicates that a LEFT SHIFT is Present. MCH (RBC) [Entitic mass] 27.5 pg 27.0-32.0 [facility] Nucleated RBC/100 WBC (Bld) [Ratio] 0 % 0-5 [facility] MCHC Auto (RBC) [Mass/Vol]Or dered By: Alejo Salcido on 12-31-2021 MCHC (RBC) [Mass/Vol] 31.1 g/dL 32-36 [facility] No Panel InformationOrdered By: Alejo Salcido on 12-31-2021 Estimated GFR (MDRD) Amer 98 mL/min >60 [facility] Estimated GFR (MDRD) Non-Af Amer 81 mL/min >60 [facility] Platelets bldOrdered By: Levi Salcido on 12-31-2021 Platelets (Bld) [#/Vol] 125 10*3/uL 150-450 [facility] Serum or plasma albumin yonatan urement (mass/volume)Ordered By: Alejo Salcido on 12-31-2021 Albumin [Mass/Vol] 2.3 g/dL 3.2-5.0 [facility] Serum or plasma albumin/glob ulin mass ratioOrdered By: Alejo Salcido on 12-31-2021 Albumin/Globulin [Mass ratio] 0.6 {ratio} 0.9-2.4 [facility] Serum or plasma calcium yonatan urement (mass/volume)Ordered By: Alejo Salcido on 12-31-2021 Calcium [Mass/Vol] 8.4 mg/dL 8.5-10.1 [facility] Serum or plasma creatinine m easurement (mass/volume)Ordered By: Alejo Salcido on 12-31-2021 Creatinine [Mass/Vol] 0.73 mg/dL 0.55-1.02 [facility] Comment on above: The validity of the calculated GFR & GFRAA in patients over 70 years has not been determined. Clinical correlation is essential. Serum or plasma urea nitroge n measurement (mass/volume)Ordered By: Alejo Salcido on 12-31-2021 Urea nitrogen [Mass/Vol] 10 mg/dL 7-18 [facility] Thin prep Papanicolaou smear with manual screeningOrdered By: Alejo Salcido on 12-31-2021 Thin prep Papanicolaou smear with manual screening 35 U/L 15-37 [facility] Thin prep Papanicolaou smear with manual screening 9 5-15 [facility] Absolute lymphocyte countOrd ered By: Selma Durham on 12-28-2021 Lymphocytes Auto (Unsp spec) [#/Vol] 0.99 10*3/uL 0.83-4.51 [facility] Basophil percentageOrdered B y: Selma Durham on 12-28-2021 Basophils/100 WBC (Bld) 0.3 % 0-1 [facility] Eosinophils/100 WBC (Bld) 1.0 % 0-5 [facility] Neutrophils (Bld) [#/Vol] 1.5 10*3/uL 2.0-7.7 [facility] Neutrophils/100 WBC (Bld) 51.6 % 47-70 [facility] WBC (Bld) [#/Vol] 2.9 10*3/uL 4.4-11.0 [facility] Blood erythrocytes count (nu mber/volume)Ordered By: Selma Durham on 12-28-2021 RBC (Bld) [#/Vol] 2.60 10*6/uL 4.2-5.4 [place] Blood hemoglobin measurement (mass/volume)Ordered By: Selma Durham on 12-28-2021 Hemoglobin (Bld) [Mass/Vol] 7.1 g/dL 12.0-15.0 [facility] Blood lymphocytes/100 leukoc ytesOrdered By: Selma Durham on 12-28-2021 Lymphocytes/100 WBC (Bld) 33.8 % 19-41 [facility] Blood monocytes/100 leukocyt esOrdered By: Selma Durham on 12-28-2021 Monocytes/100 WBC (Bld) 13.0 % 0-10 [facility] Blood platelet mean volumeOr dered By: Selma Durham on 12-28-2021 Platelet mean volume (Bld) [Entitic vol] 10.2 fL 6.2-12.0 [facility] Determination of erythrocyte mean corpuscular volume (MCV)Ordered By: Selma Durham on 12-28-2021 MCV (RBC) [Entitic vol] 86.5 fL 81-99 [facility] Hematocrit Auto (Bld) [Volum e fraction]Ordered By: Selma Durham on 12-28-2021 Hematocrit (Bld) [Volume fraction] 22.5 % 37-47 [facility] INR in Blood by Coagulation assayOrdered By: Selma Durham on 12-28-2021 INR Coag (Bld) [Relative time] 2.6 {INR} [facility] Laboratory - CoagulationOrde red By: Selma Durham on 12-28-2021 PT Coag (PPP) [Time] 27.1 s 11.7-14.9 [facility] Laboratory - Hematology and Cell countsOrdered By: Selma Durham on 12-28-2021 Erythrocyte distribution width (RBC) [Entitic vol] 63.3 fL 35.1-43.9 [facility] Erythrocyte distribution width (RBC) [Ratio] 19.9 % 11.6-14.6 [facility] Immature granulocytes/100 WBC (Bld) 0.300 % 0.0-0.9 [facility] Comment on above: IG% - Immature Granu locytes (promyelocytes, myelocytes and metamyelocytes) > 1% indicates that a LEFT SHIFT is Present. MCH (RBC) [Entitic mass] 27.3 pg 27.0-32.0 [facility] Nucleated RBC/100 WBC (Bld) [Ratio] 0 % 0-5 [facility] MCHC Auto (RBC) [Mass/Vol]Or dered By: Selma Durham on 12-28-2021 MCHC (RBC) [Mass/Vol] 31.6 g/dL 32-36 [facility] Platelets bldOrdered By: Hafsa tasia Marva on 12-28-2021 Platelets (Bld) [#/Vol] 108 10*3/uL 150-450 [facility] Absolute lymphocyte countOrd ered By: Alejo Salcido on 12-27-2021 Lymphocytes Auto (Unsp spec) [#/Vol] 1.15 10*3/uL 0.83-4.51 [facility] Basophil percentageOrdered B y: Alejo Salcido on 12-27-2021 Basophils/100 WBC (Bld) 0.0 % 0-1 [facility] Eosinophils/100 WBC (Bld) 1.2 % 0-5 [facility] Neutrophils (Bld) [#/Vol] 0.8 10*3/uL 2.0-7.7 [facility] Neutrophils/100 WBC (Bld) 33.7 % 47-70 [facility] WBC (Bld) [#/Vol] 2.4 10*3/uL 4.4-11.0 [facility] Blood erythrocytes count (nu mber/volume)Ordered By: Alejo Salcido on 12-27-2021 RBC (Bld) [#/Vol] 2.55 10*6/uL 4.2-5.4 [place] Blood hemoglobin measurement (mass/volume)Ordered By: Alejo Salcido on 12-27-2021 Hemoglobin (Bld) [Mass/Vol] 6.7 g/dL 12.0-15.0 [facility] Blood lymphocytes/100 leukoc ytesOrdered By: Alejo Salcido on 12-27-2021 Lymphocytes/100 WBC (Bld) 47.1 % 19-41 [facility] Blood manual differential co mment interpretation (narrative result)Ordered By: Alejo Salcido on 12-27-2021 Manual differential comment [place] (Bld) [Interp] See comment [facility] Comment on above: NEUTROPENIA Blood monocytes/100 leukocyt esOrdered By: Alejo Salcido on 12-27-2021 Monocytes/100 WBC (Bld) 18.0 % 0-10 [facility] Blood platelet adequacy dete ction by light microscopyOrdered By: Alejo Salcido on 12-27-2021 Platelets LM Ql (Bld) SLT DEC [facility] Blood platelet mean volumeOr dered By: Alejo Salcido on 12-27-2021 Platelet mean volume (Bld) [Entitic vol] 10.5 fL 6.2-12.0 [facility] Determination of erythrocyte mean corpuscular volume (MCV)Ordered By: Alejo Salcido on 12-27-2021 MCV (RBC) [Entitic vol] 87.1 fL 81-99 [facility] Hematocrit Auto (Bld) [Volum e fraction]Ordered By: Alejo Salcido on 12-27-2021 Hematocrit (Bld) [Volume fraction] 22.2 % 37-47 [facility] Hypochromatic red blood cell detectionOrdered By: Alejo Salcido on 12-27-2021 Hypochromia Ql (Bld) 2+ [facility] INR in Blood by Coagulation assayOrdered By: Alejo Salcido on 12-27-2021 INR Coag (Bld) [Relative time] 3.0 {INR} [facility] Laboratory - CoagulationOrde red By: Alejo Salcido on 12-27-2021 PT Coag (PPP) [Time] 30.9 s 11.7-14.9 [facility] Laboratory - Hematology and Cell countsOrdered By: Alejo Salcido on 12-27-2021 Anisocytosis Ql (Bld) 1+ [facility] Erythrocyte distribution width (RBC) [Entitic vol] 63.0 fL 35.1-43.9 [facility] Erythrocyte distribution width (RBC) [Ratio] 19.7 % 11.6-14.6 [facility] Immature granulocytes/100 WBC (Bld) 0.000 % 0.0-0.9 [facility] Comment on above: IG% - Immature Granu locytes (promyelocytes, myelocytes and metamyelocytes) > 1% indicates that a LEFT SHIFT is Present. MCH (RBC) [Entitic mass] 26.3 pg 27.0-32.0 [facility] Nucleated RBC/100 WBC (Bld) [Ratio] 0 % 0-5 [facility] MCHC Auto (RBC) [Mass/Vol]Or dered By: Alejo Salcido on 12-27-2021 MCHC (RBC) [Mass/Vol] 30.2 g/dL 32-36 [facility] Platelets bldOrdered By: Levi Salcido on 12-27-2021 Platelets (Bld) [#/Vol] 104 10*3/uL 150-450 [facility] Absolute lymphocyte countOrd ered By: Alejo Salcido on 12-22-2021 Lymphocytes Auto (Unsp spec) [#/Vol] 0.98 10*3/uL 0.83-4.51 [facility] Basophil percentageOrdered B y: Alejo Salcido on 12-22-2021 Basophils/100 WBC (Bld) 0.3 % 0-1 [facility] Chloride [Moles/Vol] 110 mmol/L 98-107 [facility] Eosinophils/100 WBC (Bld) 0.3 % 0-5 [facility] Glucose [Mass/Vol] 111 mg/dL 74-106 [facility] Comment on above: Fasting Glucose resu lt from 100 to 125 mg/dL suggests IMPAIRED HOMEOSTASIS per A.D.A. criteria. Neutrophils (Bld) [#/Vol] 2.1 10*3/uL 2.0-7.7 [facility] Neutrophils/100 WBC (Bld) 54.4 % 47-70 [facility] Potassium [Moles/Vol] 3.8 mmol/L 3.5-5.1 [facility] Sodium [Moles/Vol] 140 mmol/L 136-145 [facility] WBC (Bld) [#/Vol] 3.9 10*3/uL 4.4-11.0 [facility] Blood erythrocytes count (nu mber/volume)Ordered By: Alejo Salcido on 12-22-2021 RBC (Bld) [#/Vol] 2.80 10*6/uL 4.2-5.4 [place] Blood hemoglobin measurement (mass/volume)Ordered By: Alejo Salcido on 12-22-2021 Hemoglobin (Bld) [Mass/Vol] 7.5 g/dL 12.0-15.0 [facility] Blood lymphocytes/100 leukoc ytesOrdered By: Alejo Salcido on 12-22-2021 Lymphocytes/100 WBC (Bld) 25.3 % 19-41 [facility] Blood monocytes/100 leukocyt esOrdered By: Alejo Salcido on 12-22-2021 Monocytes/100 WBC (Bld) 19.4 % 0-10 [facility] Blood platelet mean volumeOr dered By: Alejo Salcido on 12-22-2021 Platelet mean volume (Bld) [Entitic vol] 10.4 fL 6.2-12.0 [facility] Determination of erythrocyte mean corpuscular volume (MCV)Ordered By: Alejo Salcido on 12-22-2021 MCV (RBC) [Entitic vol] 85.4 fL 81-99 [facility] Hematocrit Auto (Bld) [Volum e fraction]Ordered By: Alejo Salcido on 12-22-2021 Hematocrit (Bld) [Volume fraction] 23.9 % 37-47 [facility] Laboratory - Chemistry and C hemistry - challengeOrdered By: Alejo Salcido on 12-22-2021 CO2 [Moles/Vol] 24.0 mmol/L 21.0-32.0 [facility] Urea nitrogen/Creatinine [Mass ratio] 19.0 mg/mg 10-20 [facility] Laboratory - Hematology and Cell countsOrdered By: Alejo Salcido on 12-22-2021 Erythrocyte distribution width (RBC) [Entitic vol] 61.6 fL 35.1-43.9 [facility] Erythrocyte distribution width (RBC) [Ratio] 19.5 % 11.6-14.6 [facility] Immature granulocytes/100 WBC (Bld) 0.300 % 0.0-0.9 [facility] Comment on above: IG% - Immature Granu locytes (promyelocytes, myelocytes and metamyelocytes) > 1% indicates that a LEFT SHIFT is Present. MCH (RBC) [Entitic mass] 26.8 pg 27.0-32.0 [facility] Nucleated RBC/100 WBC (Bld) [Ratio] 0 % 0-5 [facility] MCHC Auto (RBC) [Mass/Vol]Or dered By: Alejo Salcido on 12-22-2021 MCHC (RBC) [Mass/Vol] 31.4 g/dL 32-36 [facility] No Panel InformationOrdered By: Alejo Salcido on 12-22-2021 Estimated GFR (MDRD) Amer 72 mL/min >60 [facility] Comment on above: GFR Calc Estimated GFR (MDRD) Non-Af Amer 60 mL/min >60 [facility] Comment on above: Non- GFR Calc Platelets bldOrdered By: Levi Salcido on 12-22-2021 Platelets (Bld) [#/Vol] 136 10*3/uL 150-450 [facility] Serum or plasma calcium yonatan urement (mass/volume)Ordered By: Alejo Salcido on 12-22-2021 Calcium [Mass/Vol] 8.2 mg/dL 8.5-10.1 [facility] Serum or plasma creatinine m easurement (mass/volume)Ordered By: Alejo Salcido on 12-22-2021 Creatinine [Mass/Vol] 0.95 mg/dL 0.55-1.02 [facility] Comment on above: The validity of the calculated GFR & GFRAA in patients over 70 years has not been determined. Clinical correlation is essential. Serum or plasma urea nitroge n measurement (mass/volume)Ordered By: Alejo Salcido on 12-22-2021 Urea nitrogen [Mass/Vol] 18 mg/dL 7-18 [facility] Thin prep Papanicolaou smear with manual screeningOrdered By: Alejo Salcido on 12-22-2021 Thin prep Papanicolaou smear with manual screening 6 5-15 [facility] Laboratory - CoagulationOrde red By: Alejo Salcido on 12-17-2021 INR Coag (Bld) [Relative time] 2.7 {INR} [facility] Comment on above: Critical Value > 4.0 Whole blood prothrombin time Ordered By: Alejo Salcido on 12-17-2021 PT Coag (Bld) [Time] 31.0 s 11.7-14.9 [facility] Laboratory - CoagulationOrde red By: Alejo Salcido on 12-10-2021 INR Coag (Bld) [Relative time] 2.4 {INR} [facility] Comment on above: Critical Value > 4.0 Whole blood prothrombin time Ordered By: Alejo Salcido on 12-10-2021 PT Coag (Bld) [Time] 28.1 s 11.7-14.9 [facility] Absolute lymphocyte countOrd ered By: Alejo Salcido on 12-03-2021 Lymphocytes Auto (Unsp spec) [#/Vol] 1.47 10*3/uL 0.83-4.51 [facility] Basophil percentageOrdered B y: Alejo Salcido on 12-03-2021 Basophils/100 WBC (Bld) 0.8 % 0-1 [facility] Bilirubin [Mass/Vol] 0.40 mg/dL 0.20-1.00 [facility] Comment on above: For patients on eltr ombopag therapy, use of Dimension Bath TBIL is not recommended. Chloride [Moles/Vol] 113 mmol/L 98-107 [facility] Eosinophils/100 WBC (Bld) 2.9 % 0-5 [facility] Glucose [Mass/Vol] 84 mg/dL 74-106 [facility] Neutrophils (Bld) [#/Vol] 2.5 10*3/uL 2.0-7.7 [facility] Neutrophils/100 WBC (Bld) 51.5 % 47-70 [facility] Potassium [Moles/Vol] 4.0 mmol/L 3.5-5.1 [facility] Protein [Mass/Vol] 7.4 g/dL 6.4-8.2 [facility] Sodium [Moles/Vol] 144 mmol/L 136-145 [facility] WBC (Bld) [#/Vol] 4.9 10*3/uL 4.4-11.0 [facility] Blood erythrocytes count (nu mber/volume)Ordered By: Alejo Salcido on 12-03-2021 RBC (Bld) [#/Vol] 3.31 10*6/uL 4.2-5.4 [place] Blood hemoglobin measurement (mass/volume)Ordered By: Alejo Salcido on 12-03-2021 Hemoglobin (Bld) [Mass/Vol] 8.6 g/dL 12.0-15.0 [facility] Blood lymphocytes/100 leukoc ytesOrdered By: Alejo Salcido on 12-03-2021 Lymphocytes/100 WBC (Bld) 29.9 % 19-41 [facility] Blood monocytes/100 leukocyt esOrdered By: Alejo Salcido on 12-03-2021 Monocytes/100 WBC (Bld) 14.7 % 0-10 [facility] Blood platelet mean volumeOr dered By: Alejo Salcido on 12-03-2021 Platelet mean volume (Bld) [Entitic vol] 10.1 fL 6.2-12.0 [facility] Determination of erythrocyte mean corpuscular volume (MCV)Ordered By: Alejo Salcido on 12-03-2021 MCV (RBC) [Entitic vol] 87.9 fL 81-99 [facility] Hematocrit Auto (Bld) [Volum e fraction]Ordered By: Alejo Salcido on 12-03-2021 Hematocrit (Bld) [Volume fraction] 29.1 % 37-47 [facility] INR in Blood by Coagulation assayOrdered By: Alejo Salcido on 12-03-2021 INR Coag (Bld) [Relative time] 2.4 {INR} [facility] Laboratory - Chemistry and C hemistry - challengeOrdered By: Alejo Salcido on 12-03-2021 ALP [Catalytic activity/Vol] 85 U/L 45-117 [facility] ALT [Catalytic activity/Vol] 22 U/L 13-56 [facility] CO2 [Moles/Vol] 25.0 mmol/L 21.0-32.0 [facility] Globulin (S) [Mass/Vol] 4.8 g/dL 2.2-4.2 [facility] Urea nitrogen/Creatinine [Mass ratio] 20.7 mg/mg 10-20 [facility] Laboratory - CoagulationOrde red By: Alejo Salcido on 12-03-2021 PT Coag (PPP) [Time] 25.8 s 11.7-14.9 [facility] Laboratory - Hematology and Cell countsOrdered By: Alejo Salcido on 12-03-2021 Erythrocyte distribution width (RBC) [Entitic vol] 62.5 fL 35.1-43.9 [facility] Erythrocyte distribution width (RBC) [Ratio] 19.6 % 11.6-14.6 [facility] Immature granulocytes/100 WBC (Bld) 0.200 % 0.0-0.9 [facility] Comment on above: IG% - Immature Granu locytes (promyelocytes, myelocytes and metamyelocytes) > 1% indicates that a LEFT SHIFT is Present. MCH (RBC) [Entitic mass] 26.0 pg 27.0-32.0 [facility] Nucleated RBC/100 WBC (Bld) [Ratio] 0 % 0-5 [facility] MCHC Auto (RBC) [Mass/Vol]Or dered By: Alejo Salcido on 12-03-2021 MCHC (RBC) [Mass/Vol] 29.6 g/dL 32-36 [facility] No Panel InformationOrdered By: Alejo Salcido on 12-03-2021 Estimated GFR (MDRD) Amer 106 mL/min >60 [facility] Comment on above: GFR Calc Estimated GFR (MDRD) Non-Af Amer 88 mL/min >60 [facility] Comment on above: Non- GFR Calc Platelets bldOrdered By: Levi Salcido on 12-03-2021 Platelets (Bld) [#/Vol] 173 10*3/uL 150-450 [facility] Serum or plasma albumin yonatan urement (mass/volume)Ordered By: Alejo Salcido on 12-03-2021 Albumin [Mass/Vol] 2.6 g/dL 3.2-5.0 [facility] Serum or plasma albumin/glob ulin mass ratioOrdered By: Alejo Salcido on 12-03-2021 Albumin/Globulin [Mass ratio] 0.5 {ratio} 0.9-2.4 [facility] Serum or plasma calcium yonatan urement (mass/volume)Ordered By: Alejo Salcido on 12-03-2021 Calcium [Mass/Vol] 9.3 mg/dL 8.5-10.1 [facility] Serum or plasma creatinine m easurement (mass/volume)Ordered By: Alejo Salcido on 12-03-2021 Creatinine [Mass/Vol] 0.68 mg/dL 0.55-1.02 [facility] Comment on above: The validity of the calculated GFR & GFRAA in patients over 70 years has not been determined. Clinical correlation is essential. Serum or plasma urea nitroge n measurement (mass/volume)Ordered By: Alejo Salcido on 12-03-2021 Urea nitrogen [Mass/Vol] 14 mg/dL 7-18 [facility] Thin prep Papanicolaou smear with manual screeningOrdered By: Alejo Salcido on 12-03-2021 Thin prep Papanicolaou smear with manual screening 24 U/L 15-37 [facility] Thin prep Papanicolaou smear with manual screening 6 5-15 [facility] Laboratory - Coagulationon 0 11-26-2021 INR Coag (Bld) [Relative time] 1.1 {INR} [facility] Work Phone: Comment on above: Critical Value > 4.0 Whole blood prothrombin time on 11-26-2021 PT Coag (Bld) [Time] 13.7 s 11.7-14.9 [facility] Work Phone: Absolute lymphocyte counton 11-20-2021 Lymphocytes Auto (Unsp spec) [#/Vol] 1.35 10*3/uL 0.83-4.51 [facility] Work Phone: Basophil percentageon 2021 Basophils/100 WBC (Bld) 0.8 % 0-1 [facility] Work Phone: Eosinophils/100 WBC (Bld) 1.7 % 0-5 [facility] Work Phone: Neutrophils (Bld) [#/Vol] 3.1 10*3/uL 2.0-7.7 [facility] Work Phone: Neutrophils/100 WBC (Bld) 59.8 % 47-70 [facility] Work Phone: WBC (Bld) [#/Vol] 5.2 10*3/uL 4.4-11.0 [facility] Work Phone: Blood erythrocytes count (nu mber/volume)on 11-20-2021 RBC (Bld) [#/Vol] 3.20 10*6/uL 4.2-5.4 [place] Work Phone: Blood hemoglobin measurement (mass/volume)on 11-20-2021 Hemoglobin (Bld) [Mass/Vol] 8.5 g/dL 12.0-15.0 [facility] Work Phone: Blood lymphocytes/100 leukoc yteson 11-20-2021 Lymphocytes/100 WBC (Bld) 26.0 % 19-41 [facility] Work Phone: Blood monocytes/100 leukocyt eson 11-20-2021 Monocytes/100 WBC (Bld) 11.5 % 0-10 [facility] Work Phone: Blood platelet mean volumeon 11-20-2021 Platelet mean volume (Bld) [Entitic vol] 9.8 fL 6.2-12.0 [facility] Work Phone: Determination of erythrocyte mean corpuscular volume (MCV)on 11-20-2021 MCV (RBC) [Entitic vol] 88.1 fL 81-99 [facility] Work Phone: Hematocrit Auto (Bld) [Volum e fraction]on 11-20-2021 Hematocrit (Bld) [Volume fraction] 28.2 % 37-47 [facility] Work Phone: Laboratory - Hematology and Cell countson 11-20-2021 Erythrocyte distribution width (RBC) [Entitic vol] 63.0 fL 35.1-43.9 [facility] Work Phone: Erythrocyte distribution width (RBC) [Ratio] 19.5 % 11.6-14.6 [facility] Work Phone: Immature granulocytes/100 WBC (Bld) 0.200 % 0.0-0.9 [facility] Work Phone: Comment on above: IG% - Immature Granu locytes (promyelocytes, myelocytes and metamyelocytes) > 1% indicates that a LEFT SHIFT is Present. MCH (RBC) [Entitic mass] 26.6 pg 27.0-32.0 [facility] Work Phone: Nucleated RBC/100 WBC (Bld) [Ratio] 0 % 0-5 [facility] Work Phone: MCHC Auto (RBC) [Mass/Vol]on 11-20-2021 MCHC (RBC) [Mass/Vol] 30.1 g/dL 32-36 [facility] Work Phone: Platelets bldon 11-20-2021 Platelets (Bld) [#/Vol] 184 10*3/uL 150-450 [facility] Work Phone: Absolute lymphocyte counton 10-29-2021 Lymphocytes Auto (Unsp spec) [#/Vol] 1.41 10*3/uL 0.83-4.51 [facility] Work Phone: Basophil percentageon 2021 Basophils/100 WBC (Bld) 0.6 % 0-1 [facility] Work Phone: Bilirubin [Mass/Vol] 0.50 mg/dL 0.20-1.00 [facility] Work Phone: Comment on above: For patients on eltr ombopag therapy, use of Dimension Bath TBIL is not recommended. Chloride [Moles/Vol] 112 mmol/L 98-107 [facility] Work Phone: Eosinophils/100 WBC (Bld) 2.5 % 0-5 [facility] Work Phone: Glucose [Mass/Vol] 82 mg/dL 74-106 [facility] Work Phone: Neutrophils (Bld) [#/Vol] 2.5 10*3/uL 2.0-7.7 [facility] Work Phone: Neutrophils/100 WBC (Bld) 52.7 % 47-70 [facility] Work Phone: Potassium [Moles/Vol] 3.9 mmol/L 3.5-5.1 [facility] Work Phone: Protein [Mass/Vol] 7.0 g/dL 6.4-8.2 [facility] Work Phone: Sodium [Moles/Vol] 144 mmol/L 136-145 [facility] Work Phone: WBC (Bld) [#/Vol] 4.8 10*3/uL 4.4-11.0 [facility] Work Phone: Blood erythrocytes count (nu mber/volume)on 08-15-2022 RBC (Bld) [#/Vol] 3.13 10*6/uL 4.2-5.4 [place] Work Phone: [phone] Blood hemoglobin measurement (mass/volume)on 10-29-2021 Hemoglobin (Bld) [Mass/Vol] 8.5 g/dL 12.0-15.0 [facility] Work Phone: Blood lymphocytes/100 leukoc yteson 10-29-2021 Lymphocytes/100 WBC (Bld) 29.7 % 19-41 [facility] Work Phone: Blood monocytes/100 leukocyt eson 10-29-2021 Monocytes/100 WBC (Bld) 14.5 % 0-10 [facility] Work Phone: Blood platelet mean volumeon 10-29-2021 Platelet mean volume (Bld) [Entitic vol] 10.4 fL 6.2-12.0 [facility] Work Phone: [phone] Determination of erythrocyte mean corpuscular volume (MCV)on 10-29-2021 MCV (RBC) [Entitic vol] 86.6 fL 81-99 [facility] Work Phone: [phone] Hematocrit Auto (Bld) [Volum e fraction]on 10-29-2021 Hematocrit (Bld) [Volume fraction] 27.1 % 37-47 [facility] Work Phone: [phone] Laboratory - Chemistry and C hemistry - challengeon 10-29-2021 ALP [Catalytic activity/Vol] 77 U/L 45-117 [facility] Work Phone: ALT [Catalytic activity/Vol] 23 U/L 13-56 [facility] Work Phone: CO2 [Moles/Vol] 24.0 mmol/L 21.0-32.0 [facility] Work Phone: [phone] Globulin (S) [Mass/Vol] 4.4 g/dL 2.2-4.2 [facility] Work Phone: [phone] Urea nitrogen/Creatinine [Mass ratio] 23.5 mg/mg 10-20 [facility] Work Phone: Laboratory - Hematology and Cell countson 10-29-2021 Erythrocyte distribution width (RBC) [Entitic vol] 55.9 fL 35.1-43.9 [facility] Work Phone: Erythrocyte distribution width (RBC) [Ratio] 18.0 % 11.6-14.6 [facility] Work Phone: Immature granulocytes/100 WBC (Bld) 0.000 % 0.0-0.9 [facility] Work Phone: Comment on above: IG% - Immature Granu locytes (promyelocytes, myelocytes and metamyelocytes) > 1% indicates that a LEFT SHIFT is Present. MCH (RBC) [Entitic mass] 27.2 pg 27.0-32.0 [facility] Work Phone: Nucleated RBC/100 WBC (Bld) [Ratio] 0 % 0-5 [facility] Work Phone: MCHC Auto (RBC) [Mass/Vol]on 10-29-2021 MCHC (RBC) [Mass/Vol] 31.4 g/dL 32-36 [facility] Work Phone: No Panel Informationon 10-29 Estimated GFR (MDRD) Amer 92 mL/min >60 [facility] Work Phone: Comment on above: GFR Calc Estimated GFR (MDRD) Non-Af Amer 76 mL/min >60 [facility] Work Phone: Comment on above: Non- GFR Calc Thyroid Stimulating Hormone (TSH) 1.37 uIU/mL 0.358-3.74 [facility] Work Phone: Platelets bldon 10-29-2021 Platelets (Bld) [#/Vol] 164 10*3/uL 150-450 [facility] Work Phone: Serum or plasma albumin yonatan urement (mass/volume)on 10-29-2021 Albumin [Mass/Vol] 2.6 g/dL 3.2-5.0 [facility] Work Phone: Serum or plasma albumin/glob ulin mass ratioon 10-29-2021 Albumin/Globulin [Mass ratio] 0.6 {ratio} 0.9-2.4 [facility] Work Phone: [phone] Serum or plasma calcium yonatan urement (mass/volume)on 10-29-2021 Calcium [Mass/Vol] 9.2 mg/dL 8.5-10.1 [facility] Work Phone: [phone] Serum or plasma creatinine m easurement (mass/volume)on 10-29-2021 Creatinine [Mass/Vol] 0.77 mg/dL 0.55-1.02 [facility] Work Phone: [phone] Comment on above: The validity of the calculated GFR & GFRAA in patients over 70 years has not been determined. Clinical correlation is essential. Serum or plasma urea nitroge n measurement (mass/volume)on 10-29-2021 Urea nitrogen [Mass/Vol] 18 mg/dL 7-18 [facility] Work Phone: [phone] Thin prep Papanicolaou smear with manual screeningon 10-29-2021 Thin prep Papanicolaou smear with manual screening 27 U/L 15-37 [facility] Work Phone: Thin prep Papanicolaou smear with manual screening 8 07-29 [facility] Work Phone: [phone] Absolute lymphocyte counton 10-18-2021 Lymphocytes Auto (Unsp spec) [#/Vol] 1.43 10*3/uL 0.83-4.51 [facility] Work Phone: Basophil percentageon 2021 Basophil percentage 0 SEEN /hpf 0-5 [facility] Work Phone: Basophils/100 WBC (Bld) 0.4 % 0-1 [facility] Work Phone: Chloride [Moles/Vol] 111 mmol/L 98-107 [facility] Work Phone: Eosinophils/100 WBC (Bld) 1.4 % 0-5 [facility] Work Phone: [phone] Glucose [Mass/Vol] 113 mg/dL 74-106 [facility] Work Phone: [phone] Comment on above: Fasting Glucose resu lt from 100 to 125 mg/dL suggests IMPAIRED HOMEOSTASIS per A.D.A. criteria. Neutrophils (Bld) [#/Vol] 3.2 10*3/uL 2.0-7.7 [facility] Work Phone: Neutrophils/100 WBC (Bld) 57.4 % 47-70 [facility] Work Phone: Potassium [Moles/Vol] 3.9 mmol/L 3.5-5.1 [facility] Work Phone: Sodium [Moles/Vol] 140 mmol/L 136-145 [facility] Work Phone: WBC (Bld) [#/Vol] 5.5 10*3/uL 4.4-11.0 [facility] Work Phone: [phone] Bilirubin Test strip Ql (U)o n 10-18-2021 Bilirubin Ql (U) Negative Negative [facility] Work Phone: Blood erythrocytes count (nu mber/volume)on 10-18-2021 RBC (Bld) [#/Vol] 2.39 10*6/uL 4.2-5.4 [place] Work Phone: Blood hemoglobin measurement (mass/volume)on 10-18-2021 Hemoglobin (Bld) [Mass/Vol] 6.2 g/dL 12.0-15.0 [facility] Work Phone: Blood lymphocytes/100 leukoc yteson 10-18-2021 Lymphocytes/100 WBC (Bld) 25.9 % 19-41 [facility] Work Phone: Blood monocytes/100 leukocyt eson 10-18-2021 Monocytes/100 WBC (Bld) 14.5 % 0-10 [facility] Work Phone: Blood platelet mean volumeon 10-18-2021 Platelet mean volume (Bld) [Entitic vol] 8.9 fL 6.2-12.0 [facility] Work Phone: Determination of erythrocyte mean corpuscular volume (MCV)on 10-18-2021 MCV (RBC) [Entitic vol] 84.5 fL 81-99 [facility] Work Phone: [phone] Hematocrit Auto (Bld) [Volum e fraction]on 10-18-2021 Hematocrit (Bld) [Volume fraction] 20.2 % 37-47 [facility] Work Phone: [phone] INR in Blood by Coagulation assayon 10-18-2021 INR Coag (Bld) [Relative time] 1.7 {INR} [facility] Work Phone: [phone] Iron measurement (mass/mass) on 10-18-2021 Iron (Unsp spec) [Mass/Mass] 25 ug/dL 50-170 [facility] Work Phone: [phone] Ketones Test strip Ql (U)on 10-18-2021 Ketones Ql (U) Negative Negative [facility] Work Phone: [phone] Laboratory - Chemistry and C hemistry - challengeon 10-18-2021 CO2 [Moles/Vol] 25.0 mmol/L 21.0-32.0 [facility] Work Phone: Urea nitrogen/Creatinine [Mass ratio] 23.5 mg/mg 10-20 [facility] Work Phone: Laboratory - Coagulationon 0 10-18-2021 PT Coag (PPP) [Time] 19.9 s 11.7-14.9 [facility] Work Phone: [phone] Laboratory - Hematology and Cell countson 10-18-2021 Erythrocyte distribution width (RBC) [Entitic vol] 53.0 fL 35.1-43.9 [facility] Work Phone: [phone] Erythrocyte distribution width (RBC) [Ratio] 17.2 % 11.6-14.6 [facility] Work Phone: [phone] Immature granulocytes/100 WBC (Bld) 0.400 % 0.0-0.9 [facility] Work Phone: Comment on above: IG% - Immature Granu locytes (promyelocytes, myelocytes and metamyelocytes) > 1% indicates that a LEFT SHIFT is Present. MCH (RBC) [Entitic mass] 25.9 pg 27.0-32.0 [facility] Work Phone: Nucleated RBC/100 WBC (Bld) [Ratio] 0 % 0-5 [facility] Work Phone: MCHC Auto (RBC) [Mass/Vol]on 10-18-2021 MCHC (RBC) [Mass/Vol] 30.7 g/dL 32-36 [facility] Work Phone: Mucus LM Ql (Urine sed)on Mucus Ql (Urine sed) 0 SEEN /hpf [facility] Work Phone: Nitrite Test strip Ql (U)on 10-18-2021 Nitrite Ql (U) Negative Negative [facility] Work Phone: No Panel Informationon 10-18 Estimated Creatinine Clearance Calc 38.50 ml/min [facility] Work Phone: Estimated GFR (MDRD) Amer 99 mL/min >60 [facility] Work Phone: Comment on above: GFR Calc Estimated GFR (MDRD) Non-Af Amer 82 mL/min >60 [facility] Work Phone: Comment on above: Non- GFR Calc Total Iron Binding Capacity 371 ug/dL 250-450 [facility] Work Phone: Platelets bldon 10-18-2021 Platelets (Bld) [#/Vol] 140 10*3/uL 150-450 [facility] Work Phone: Protein Test strip Ql (U)on 10-18-2021 Protein Ql (U) Negative Negative [facility] Work Phone: Serum or plasma calcium yonatan urement (mass/volume)on 10-18-2021 Calcium [Mass/Vol] 8.1 mg/dL 8.5-10.1 [facility] Work Phone: Serum or plasma creatinine m easurement (mass/volume)on 10-18-2021 Creatinine [Mass/Vol] 0.72 mg/dL 0.55-1.02 [facility] Work Phone: Comment on above: The validity of the calculated GFR & GFRAA in patients over 70 years has not been determined. Clinical correlation is essential. Serum or plasma ferritin shania surement (mass/volume)on 10-18-2021 Ferritin [Mass/Vol] 10 ng/mL 8-252 [place] Work Phone: Serum or plasma iron saturat ion measurement (mass fraction)on 10-18-2021 Iron saturation [Mass fraction] 6.7 % 15.0-55.0 [facility] Work Phone: Serum or plasma urea nitroge n measurement (mass/volume)on 10-18-2021 Urea nitrogen [Mass/Vol] 17 mg/dL 7-18 [facility] Work Phone: Squamous epithelial cells de tection in urine sediment by light microscopyon 10-18-2021 Epithelial cells.squamous LM Ql (Urine sed) 0 SEEN /hpf 5-10 [facility] Work Phone: Thin prep Papanicolaou smear with manual screeningon 10-18-2021 Thin prep Papanicolaou smear with manual screening 4 5-15 [facility] Work Phone: Urine blood detectionon 08- RBC Ql (U) Negative Negative [facility] Work Phone: RBC Ql (U) 0 SEEN /hpf 0-5 [facility] Work Phone: Urine clarityon 10-18-2021 Clarity (U) Clear Clear [facility] Work Phone: Urine color determinationon 10-18-2021 Color (U) Yellow Yellow [facility] Work Phone: Urine glucose detectionon Glucose Ql (U) Normal mg/dl Normal [facility] Work Phone: Urine leukocyte esterase det ection by dipstickon 10-18-2021 Leukocyte esterase Test strip Ql (U) 100 /ul Negative [facility] Work Phone: Urine pHon 10-18-2021 pH (U) 6.5 [pH] 5.0 - 8.0 [facility] Work Phone: Urine sediment bacteria coun t by microscopy (number/high power field)on 10-18-2021 Bacteria LM.HPF (Urine sed) [#/Area] 0 /[HPF] None Seen [facility] Work Phone: Urine specific gravity measu rementon 10-18-2021 Specific gravity (U) [Rel density] 1.005 1.002-1.030 [facility] Work Phone: Urobilinogen Auto test strip Ql (U)on 10-18-2021 Urobilinogen Ql (U) Normal mg/dl Normal [facility] Work Phone: CBC W Auto Differential pane l (Bld)on 10-16-2021 Abs Immature Gran <0.03 <0.10 k/uL [facility] Basophils (Bld) [#/Vol] 0.04 10*3/uL <0.11 k/uL [facility] Basophils/100 WBC (Bld) 0.8 % [facility] Differential cell count method Nom (Bld) Auto [facility] Eosinophils (Bld) [#/Vol] 0.07 10*3/uL <0.46 k/uL [facility] Eosinophils/100 WBC (Bld) 1.3 % [facility] Erythrocyte distribution width (RBC) [Ratio] 17.0 % High 11.5 - 15.0 % [facility] Hematocrit (Bld) [Volume fraction] 21.0 % Low 36.0 - 46.0 % [facility] Hemoglobin (Bld) [Mass/Vol] 6.5 g/dL Low 11.5 - 15.5 g/dL [facility] Immature Gran % 0.4 % [facility] Lymphocytes (Bld) [#/Vol] 1.10 10*3/uL 1.00 - 4.00 k/uL [facility] Lymphocytes/100 WBC (Bld) 21.2 % [facility] MCH (RBC) [Entitic mass] 25.6 pg Low 26.0 - 34.[address] [facility] MCHC (RBC) [Mass/Vol] 31.0 g/dL 30.5 - 36.0 g/dL [facility] MCV (RBC) [Entitic vol] 82.7 fL 80.0 - 100.[address] [facility] Monocytes (Bld) [#/Vol] 0.61 10*3/uL <0.87 k/uL [facility] Monocytes/100 WBC (Bld) 11.7 % [facility] Neutrophils (Bld) [#/Vol] 3.36 10*3/uL 1.45 - 7.50 k/uL [facility] Neutrophils/100 WBC (Bld) 64.6 % [facility] Nucleated RBC (Bld) [#/Vol] 10*3/uL <0.01 k/uL [facility] Nucleated RBC/100 WBC (Bld) [Ratio] 0.0 /[address] [facility] Platelet mean volume (Bld) [Entitic vol] 9.1 fL 9.0 - 12.[address] [facility] Platelets (Bld) [#/Vol] 164 10*3/uL 150 - 400 k/uL [facility] RBC (Bld) [#/Vol] 2.54 10*6/uL Low 3.90 - 5.2 0 m/uL [facility] WBC (Bld) [#/Vol] 5.20 10*3/uL 3.70 - 11.00 k/uL [facility] INR FINGERSTICK B/Oon 2021 INR Coag (Bld) [Relative time] 2.1 (biotel) [facility] Quality Check No [facility] INR FINGERSTICK B/Oon 2021 INR Coag (Bld) [Relative time] 4.8 {INR} [facility] CNOVon 09-26-2021 CNOV Office Visit (CRISTINE ) CHRISTIAN LANDRUM ([id number]) 1935 F Date Time Provider Department 09/26/21 2:00 PM BASILIA HERNÁNDEZ During your visit today, we recorded the following information about you: Weight Height 77.1 kg 1.676 m Basilia Hernández MD 09/28/2021 1:52 PM Signed Female Pelvic Medicine AND Reconstructive Surgery Consult CHIEF COMPLAINT: Christian Landrum is a 86 year old female who presents for consultation requested by Dr. Jayde Hebert MD for an opinion regarding Recurrent UTI, mixed stress and urgency urinary incontinence. HISTORY OF PRESENT ILLNESS: Pt and daughter here for visit. Reports long standing h/o recurrent UTIs, used to see Dr. Burris at [facility]. Prior colovesical fistula, s/p sigmoid colectomy. Using [...] >=60 mL/min/1.73m? 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 Normal [facility] UA DIP, URINE (POC)on 2021 BILIRUBIN UA (POCT) Negative Negative [facility] CLARITY UA (POCT) Clear [facility] COLOR UA (POCT) Yellow [facility] GLUCOSE UA (POCT) Negative Negative mg/dL [facility] HEMOGLOBIN/BLOOD UA (POCT) Negative Negative [facility] KETONE UA (POCT) Negative Negative mg/dL [facility] LEUKOCYTES UA (POCT) Negative Negative [facility] NITRITE UA (POCT) Negative Negative [facility] PH UA (POCT) 6.5 4.5 - 8.0 [facility] Protein Ql (U) Negative Negative mg/dL [facility] SPECIFIC GRAVITY UA (POCT) 1.010 1.005 - 1.030 [facility] UROBILINOGEN UA (POCT) 0.2 E.U./dL [facility] l E.U./dL [facility] UA DIP, URINE (POC)on 2021 BILIRUBIN UA (POCT) Negative Negative [facility] CLARITY UA (POCT) Cloudy [facility] COLOR UA (POCT) Yellow [facility] GLUCOSE UA (POCT) Negative Negative mg/[facility] HEMOGLOBIN/BLOOD UA (POCT) Trace-intact Abnormal Negative [facility] KETONE UA (POCT) Negative Negative mg/dL [facility] LEUKOCYTES UA (POCT) Large Abnormal Negative [facility] NITRITE UA (POCT) Negative Negative [facility] PH UA (POCT) 6.0 4.5 - 8.0 [facility] Protein Ql (U) Negative Negative mg/dL [facility] SPECIFIC GRAVITY UA (POCT) 1.015 1.005 - 1.030 [facility] UROBILINOGEN UA (POCT) 0.2 E.U./dL Win[facility]red l E.U./dL [facility] Absolute lymphocyte counton 08-26-2021 Lymphocytes Auto (Unsp spec) [#/Vol] 1.15 10*3/uL 0.83-4.51 [facility] Work Phone: Basophil percentageon 2021 Basophils/100 WBC (Bld) 0.4 % 0-1 [facility] Work Phone: Chloride [Moles/Vol] 109 mmol/L 98-107 [facility] Work Phone: Eosinophils/100 WBC (Bld) 1.9 % 0-5 [facility] Work Phone: Glucose [Mass/Vol] 111 mg/dL 74-106 [facility] Work Phone: Comment on above: Fasting Glucose resu lt from 100 to 125 mg/dL suggests IMPAIRED HOMEOSTASIS per A.D.A. criteria. Neutrophils (Bld) [#/Vol] 3.3 10*3/uL 2.0-7.7 [facility] Work Phone: Neutrophils/100 WBC (Bld) 61.2 % 47-70 [facility] Work Phone: Potassium [Moles/Vol] 4.1 mmol/L 3.5-5.1 [facility] Work Phone: Sodium [Moles/Vol] 140 mmol/L 136-145 [facility] Work Phone: WBC (Bld) [#/Vol] 5.3 10*3/uL 4.4-11.0 [facility] Work Phone: Blood erythrocytes count (nu mber/volume)on 08-26-2021 RBC (Bld) [#/Vol] 2.86 10*6/uL 4.2-5.4 [place] Work Phone: Blood hemoglobin measurement (mass/volume)on 08-26-2021 Hemoglobin (Bld) [Mass/Vol] 8.0 g/dL 12.0-15.0 [facility] Work Phone: Blood lymphocytes/100 leukoc yteson 08-26-2021 Lymphocytes/100 WBC (Bld) 21.5 % 19-41 [facility] Work Phone: Blood monocytes/100 leukocyt eson 08-26-2021 Monocytes/100 WBC (Bld) 14.6 % 0-10 [facility] Work Phone: Blood platelet mean volumeon 08-26-2021 Platelet mean volume (Bld) [Entitic vol] 9.3 fL 6.2-12.0 [facility] Work Phone: [phone] Determination of erythrocyte mean corpuscular volume (MCV)on 08-26-2021 MCV (RBC) [Entitic vol] 90.2 fL 81-99 [facility] Work Phone: Hematocrit Auto (Bld) [Volum e fraction]on 08-26-2021 Hematocrit (Bld) [Volume fraction] 25.8 % 37-47 [facility] Work Phone: [phone] INR in Blood by Coagulation assayon 08-26-2021 INR Coag (Bld) [Relative time] 2.9 {INR} [facility] Work Phone: [phone] Laboratory - Chemistry and C hemistry - challengeon 08-26-2021 CO2 [Moles/Vol] 28.0 mmol/L 21.0-32.0 [facility] Work Phone: [phone] Urea nitrogen/Creatinine [Mass ratio] 15.6 mg/mg 10-20 [facility] Work Phone: [phone] Laboratory - Coagulationon 0 08-26-2021 PT Coag (PPP) [Time] 29.6 s 11.7-14.9 [facility] Work Phone: [phone] Laboratory - Hematology and Cell countson 08-26-2021 Erythrocyte distribution width (RBC) [Entitic vol] 56.8 fL 35.1-43.9 [facility] Work Phone: Erythrocyte distribution width (RBC) [Ratio] 17.1 % 11.6-14.6 [facility] Work Phone: Immature granulocytes/100 WBC (Bld) 0.400 % 0.0-0.9 [facility] Work Phone: Comment on above: IG% - Immature Granu locytes (promyelocytes, myelocytes and metamyelocytes) > 1% indicates that a LEFT SHIFT is Present. MCH (RBC) [Entitic mass] 28.0 pg 27.0-32.0 [facility] Work Phone: Nucleated RBC/100 WBC (Bld) [Ratio] 0 % 0-5 [facility] Work Phone: MCHC Auto (RBC) [Mass/Vol]on 08-26-2021 MCHC (RBC) [Mass/Vol] 31.0 g/dL 32-36 [facility] Work Phone: No Panel Informationon 08-26 Estimated Creatinine Clearance Calc 38.50 ml/min [facility] Work Phone: Estimated GFR (MDRD) Amer 92 mL/min >60 [facility] Work Phone: Comment on above: GFR Calc Estimated GFR (MDRD) Non-Af Amer 76 mL/min >60 [facility] Work Phone: Comment on above: Non- GFR Calc Platelets bldon 08-26-2021 Platelets (Bld) [#/Vol] 155 10*3/uL 150-450 [facility] Work Phone: Serum or plasma calcium yonatan urement (mass/volume)on 08-26-2021 Calcium [Mass/Vol] 8.7 mg/dL 8.5-10.1 [facility] Work Phone: Serum or plasma creatinine m easurement (mass/volume)on 08-26-2021 Creatinine [Mass/Vol] 0.77 mg/dL 0.55-1.02 [facility] Work Phone: Comment on above: The validity of the calculated GFR & GFRAA in patients over 70 years has not been determined. Clinical correlation is essential. Serum or plasma urea nitroge n measurement (mass/volume)on 08-26-2021 Urea nitrogen [Mass/Vol] 12 mg/dL 7-18 [facility] Work Phone: Thin prep Papanicolaou smear with manual screeningon 08-26-2021 Thin prep Papanicolaou smear with manual screening 3 5-15 [facility] Work Phone: Basophil percentageon 2021 WBC (Bld) [#/Vol] 6.6 10*3/uL 4.4-11.0 [facility] Work Phone: Blood erythrocytes count (nu mber/volume)on 08-23-2021 RBC (Bld) [#/Vol] 2.94 10*6/uL 4.2-5.4 [place] Work Phone: Blood hemoglobin measurement (mass/volume)on 08-23-2021 Hemoglobin (Bld) [Mass/Vol] 8.2 g/dL 12.0-15.0 [facility] Work Phone: Blood platelet mean volumeon 08-23-2021 Platelet mean volume (Bld) [Entitic vol] 9.3 fL 6.2-12.0 [facility] Work Phone: Determination of erythrocyte mean corpuscular volume (MCV)on 08-23-2021 MCV (RBC) [Entitic vol] 89.8 fL 81-99 [facility] Work Phone: Hematocrit Auto (Bld) [Volum e fraction]on 08-23-2021 Hematocrit (Bld) [Volume fraction] 26.4 % 37-47 [facility] Work Phone: INR in Blood by Coagulation assayon 08-23-2021 INR Coag (Bld) [Relative time] 2.8 {INR} [facility] Work Phone: Laboratory - Coagulationon 0 08-23-2021 aPTT Coag (Bld) [Time] 46.5 s 24.1-36.2 [facility] Work Phone: [phone] PT Coag (PPP) [Time] 28.8 s 11.7-14.9 [facility] Work Phone: Laboratory - Hematology and Cell countson 08-23-2021 Erythrocyte distribution width (RBC) [Entitic vol] 56.3 fL 35.1-43.9 [facility] Work Phone: [phone] Erythrocyte distribution width (RBC) [Ratio] 17.0 % 11.6-14.6 [facility] Work Phone: [phone] MCH (RBC) [Entitic mass] 27.9 pg 27.0-32.0 [facility] Work Phone: [phone] MCHC Auto (RBC) [Mass/Vol]on 08-23-2021 MCHC (RBC) [Mass/Vol] 31.1 g/dL 32-36 [facility] Work Phone: [phone] Platelets bldon 08-23-2021 Platelets (Bld) [#/Vol] 160 10*3/uL 150-450 [facility] Work Phone: CBC panel Auto (Bld)on 08-13 Erythrocyte distribution width (RBC) [Ratio] 16.9 % High 11.5-15.0 [facility] Comment on above: Order Comment: Speci men Type: BLOOD SPECIMENOrdering Facility: [facility] Address: [address] [place] [address] Performed By: #### 5 8410-2 ####[facility] LABORATORYCLIA [id number] [address] STATES OF [facility] Hematocrit (Bld) [Volume fraction] 25.6 % Low 36.0-46.0 [facility] Comment on above: Order Comment: Speci men Type: BLOOD SPECIMENOrdering Facility: [facility] Address: [address] [place] [address] Performed By: #### 5 8410-2 ####[facility] LABORATORYCLIA [id number] [address] Hemoglobin (Bld) [Mass/Vol] 8.2 g/dL Low 11.5-15.5 [facility] Comment on above: Order Comment: Speci men Type: BLOOD SPECIMENOrdering Facility: [facility] Address: [address] [place] [address] Performed By: #### 5 8410-2 ####[facility] LABORATORYCLIA [id number] [address] MCH (RBC) [Entitic mass] 28.4 pg Normal 26.0-34.0 [facility] Comment on above: Order Comment: Speci men Type: BLOOD SPECIMENOrdering Facility: [facility] Address: [address] [place] [address] Performed By: #### 5 8410-2 ####[facility] LABORATORYCLIA [id number] [address] MCHC (RBC) [Mass/Vol] 32.0 g/dL Normal 30.5-36.[address] [facility] Comment on above: Order Comment: Speci men Type: BLOOD SPECIMENOrdering Facility: [facility] Address: [address] [place] [address] Performed By: #### 5 8410-2 ####[facility] LABORATORYCLIA [id number] [address] MCV (RBC) [Entitic vol] 88.6 fL Normal 80.0-100.0 [facility] Comment on above: Order Comment: Speci men Type: BLOOD SPECIMENOrdering Facility: [facility] Address: [address] [place] [address] Performed By: #### 5 8410-2 ####[facility] LABORATORYCLIA [id number] [address] Nucleated RBC (Bld) [#/Vol] 10*3/uL Normal <0.01 [facility] Comment on above: Order Comment: Speci men Type: BLOOD SPECIMENOrdering Facility: [facility] Address: [address] [place] [address] Performed By: #### 5 8410-2 ####[facility] LABORATORYCLIA [id number] [address] Platelet mean volume (Bld) [Entitic vol] 9.3 fL Normal 9.0-12.7 [facility] Comment on above: Order Comment: Speci men Type: BLOOD SPECIMENOrdering Facility: [facility] Address: [address] [place] [address] Performed By: #### 5 8410-2 ####[facility] LABORATORYCLIA [id number] [address] [place] Platelets (Bld) [#/Vol] 108 10*3/uL Low 150-400 [facility] Comment on above: Order Comment: Speci men Type: BLOOD SPECIMENOrdering Facility: [facility] Address: [address] [place] [address] Performed By: #### 5 8410-2 ####[facility] LABORATORYCLIA [id number] [address] RBC (Bld) [#/Vol] 2.89 10*6/uL Low 3.90-5.20 [facility] Comment on above: Order Comment: Speci men Type: BLOOD SPECIMENOrdering Facility: [facility] Address: [address] [place] [address] Performed By: #### 5 8410-2 ####[facility] LABORATORYCLIA [id number] [address] [place] WBC (Bld) [#/Vol] 5.19 10*3/uL Normal 3.70-11.00 [facility] Comment on above: Order Comment: Speci men Type: BLOOD SPECIMENOrdering Facility: [facility] Address: [address] [place] [address] Performed By: #### 5 8410-2 ####[facility] LABORATORYCLIA [id number] [address] [place] CNDSon 08-13-2021 CNDS HNO ID: [id number] Author: Alisha Velásquez PA-C Service: Hospital Medicine Author Type: Physician Gas Shovel Operator Type: Discharge Summary Filed: 08/13/2021 1:52 PM Note Text: Attestation signed by Catarina Ragsdale MD at 08/27/2021 10:25 PM Attending Note I have personally reviewed the PA/DALILA note. Agree with above assessment and plan. Other additions or changes: None SIGNATURE: Catarina Ragsdale MD DATE: August 27, 2021 TIME: 10:25 PM DISCHARGE SUMMARY PATIENT NAME: Christian Landrum ADMISSION DATE: 08/12/2021 DISCHARGE DATE: 08/13/2021 ATTENDING PHYSICIAN: Catarina Ragsdale MD Code Status: DNR-CCA Highest Readmission Risk Score: 22 The 30 day readmissions risk score is derived from an internally validated risk model which evaluates patient level characteristics, utilization history, medication orders and lab results up until the day of discharge. Patients with a score of 40 or above are considered highest risk for readmission. Specific patient level drivers will be listed at the bottom of the summary. CONSULTING TEAMS DURING HOSPITALIZATION: Infectious Disease: Dr. Hebert Treatment Team: Attending Provider: Catarina Ragsdale MD Primary Service: [place] [address] Physician Gas Shovel Operator: Alisha Velásquez PA-C Consulting: Samuel Qiu MD REASON FOR HOSPITALIZATION: Recurrent UTI DIAGNOSIS: Principal Problem: UTI (urinary tract infection) POA: Yes Active Problems: Essential hypertension POA: Yes Paroxysmal atrial fibrillation (HCC) POA: Yes Cirrhosis of liver with ascites (HCC) POA: Yes Anemia POA: Yes Left leg swelling POA: Yes Resolved Problems: * No resolved hospital problems. * Sepsis Ruled Out OPERATIONS DURING HOSPITALIZATION: None PROCEDURES DURING HOSPITALIZATION: US DVT LOWER LT Final Result IMPRESSION: Negative study for proximal DVT in the left lower extremity. Negative study for calf DVT in the left lower extremity. Negative study for superficial thrombophlebitis in the imaged segments of the left lower extremity. HOSPITAL COURSE: 86yo female with PMH A fib (On Coumadin), remote breast Ca, CAD, HTN, presents today with complaints of dysuria that has been ongoing since her last admission. Patient reports when she left the hospital, she felt fairly good for about 2 days, then began to experience dysuria. Patient reports symptoms gradually worsened and 3 days ago she developed chills with associated fevers (Tmax 100.4F) and fatigue. Patient called her PCP and a UA was ordered, however urine culture was never sent, thus antibiotics were not started. Patient attempted to provide a new sample 2 days ago, but by this morning she felt even worse, thus she presented to the ED for further evaluation. Patient denies CP, N/V/D/C. No reported blood in stools. The following is a summary of her hospital course ? UTI (urinary tract infection) UA concerning for UTI; UC > 100,000 CFU/Ml Lactose positive gram negative bacillie. Recent Urine cx from 07/06/21 [place]-sensitive E. Coli Empiric started on Ceftriaxone and Pyridium for dysuria. Given recurrent UTIs and recent treatment w/ Ceftriaxone, ID was consulted Dr. Hebert recommended to discharge patient Cipro 500 mg Bid x 7 days, most recent QTc 467 and follow-up w/ urology and infectious in 1 week. Patient is on Coumadin for Afib recommended follow-up w/ primary care x 1 days to monitor INR and Coumadin dose while on Ciprofloxacin. Active Problems: Essential hypertension Stable Continue home regiment ? Paroxysmal atrial fibrillation (HCC) Last EKG 07/07/21- NSR Monitor on tele Continue Coumadin, BB Daily INR (goal 2-3) ? 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 Ascites survey (07/07/21) shows no evidence of ascites LFTs currently normal Patient denies ABD pain Keep outpatient follow up appts ? Anemia Recent iron studies 07/06/21- iron 35; TIBC 270; ferritin 50.4 Hgb 8.1-- baseline more around 9 Not currently on iron supplementation-- will start PO daily Will check occult stool Continue PPI Monitor on AM labs Consider GI consult pending clinical course ? Left leg swelling Patient reports ongoing left leg swelling Duplex DVT. No evidence of DVT Discharge recommendations - Complete course of Ciprofloxacin 50 mg Bid x 7 days pending urine culture - Follow-up w/ Urology and Infectious disease 1-2 weeks - Follow-up w/ primary care x 1 days to monitor Coumadin dose and INR Transitions of Care Critical Issues: SPECIALIST FOLLOW-UP: Ciprofloxacin HEREDIA MEDICATION CHANGES: follow-up w/ urology, ID and primary care LABS AND PROCEDURES PENDING AT DISCHARGE: Culture Results (Urine) PATIENT CONDITION AT DISCHARGE: Stable DISCHARGE DISPOSITION: Ho (more content not included)... Normal [facility] Comprehensive metabolic 2000 panelon 08-13-2021 Albumin [Mass/Vol] 2.9 g/dL Low 3.9-4.9 [facility] Comment on above: Order Comment: Olga coley Type: BLOOD SPECIMEN Ordering Facility: [facility] Address: [address] [place] [address] Performed By: #### 5 7021-8 #### [facility] CLIA [id number] [address] [place] [address] [place] ALP [Catalytic activity/Vol] 71 U/L Normal 34-123 [facility] Comment on above: Order Comment: Olga coley Type: BLOOD SPECIMEN Ordering Facility: [facility] Address: [address] [place] [address] Performed By: #### 5 7021-8 #### [facility] CLIA [id number] [address] [place] [address] [place] ALT [Catalytic activity/Vol] 14 U/L Normal 7-38 [facility] Comment on above: Order Comment: Olga coley Type: BLOOD SPECIMEN Ordering Facility: [facility] Address: [address] [place] [address] Performed By: #### 5 7021-8 #### [facility] CLIA [id number] [address] [place] [address] [place] Anion gap [Moles/Vol] 9 mmol/L Normal 9-[address] [facility] Comment on above: Order Comment: Speci men Type: BLOOD SPECIMEN Ordering Facility: [facility] Address: [address] [place] [address] Performed By: #### 5 7021-8 #### [facility] CLIA [id number] [address] [place] [address] [place] AST [Catalytic activity/Vol] 28 U/L Normal 13-35 [facility] Comment on above: Order Comment: Speci men Type: BLOOD SPECIMEN Ordering Facility: [facility] Address: [address] [place] [address] Performed By: #### 5 7021-8 #### [facility] CLIA [id number] [address] [place] [address] [place] Bilirubin [Mass/Vol] 0.5 mg/dL Normal 0.2-1.3 [facility] Comment on above: Order Comment: Speci men Type: BLOOD SPECIMEN Ordering Facility: [facility] Address: [address] [place] [address] Performed By: #### 5 7021-8 #### [facility] CLIA [id number] [address] [place] [address] [place] Calcium [Mass/Vol] 8.5 mg/dL Normal 8.5-10.2 [facility] Comment on above: Order Comment: Speci men Type: BLOOD SPECIMEN Ordering Facility: [facility] Address: [address] [place] [address] Performed By: #### 5 7021-8 #### [facility] CLIA [id number] [address] [place] [address] [place] Chloride [Moles/Vol] 110 mmol/L High 97-105 [facility] Comment on above: Order Comment: Speci men Type: BLOOD SPECIMEN Ordering Facility: [facility] Address: [address] [place] [address] Performed By: #### 5 7021-8 #### [facility] CLIA [id number] [address] [place] [address] [place] CO2 [Moles/Vol] 23 mmol/L Normal 22-30 [facility] Comment on above: Order Comment: Speci men Type: BLOOD SPECIMEN Ordering Facility: [facility] Address: [address] [address] Performed By: #### 5 7021-8 #### [facility] CLIA [id number] [address] Creatinine [Mass/Vol] 0.74 mg/dL Normal 0.58-0.[address] [facility] Comment on above: Order Comment: Olga coley Type: BLOOD SPECIMEN Ordering Facility: [facility] Address: [address] [place] [address] Performed By: #### 5 7021-8 #### [facility] CLIA [id number] [address] [place] ESTIMATED GLOMERULAR FILTRATION RATE 79 mL/min/1.73m??? Normal >=60 [facility] Comment on above: Order Comment: Olga coley Type: BLOOD SPECIMEN Ordering Facility: [facility] Address: [address] [place] [address] Result Comment: Huma mated Glomerular Filtration Rate (eGFR) is calculated using the 2020 CKD-EPI creatinine equation. This equation utilizes serum creatinine, sex, and age as parameters. The creatinine assay has traceable calibration to isotope dilution-mass spectrometry. Refer to KDIGO guidelines for clinical interpretation. In patients with unstable renal function, e.g. those with acute kidney injury, the eGFR may not accurately reflect actual GFR. Performed By: #### 5 7021-8 #### [facility] CLIA [id number] [address] [place] Glucose [Mass/Vol] 126 mg/dL High 74-99 [facility] Comment on above: Order Comment: Olga coley Type: BLOOD SPECIMEN Ordering Facility: [facility] Address: [address] [place] [address] Result Comment: The [place] Diabetes Association (ADA) provides guidance for cutoff values for fasting glucose and random glucose. The ADA defines fasting as no [...] Standards of Medical Care in Diabetes 2016, [place] Diabetes Association. Diabetes Care. 2016.39(Suppl 1). Performed By: #### 5 7021-8 #### [facility] CLIA [id number] [address] [place] [address] [place] Potassium [Moles/Vol] 4.0 mmol/L Normal 3.7-5.[address] [facility] Comment on above: Order Comment: Olga coley Type: BLOOD SPECIMEN Ordering Facility: [facility] Address: [address] [place] [address] Performed By: #### 5 7021-8 #### [facility] CLIA [id number] [address] [place] [address] [place] Protein [Mass/Vol] 6.5 g/dL Normal 6.3-8.0 [facility] Comment on above: Order Comment: Olga coley Type: BLOOD SPECIMEN Ordering Facility: [facility] Address: [address] [place] [address] Performed By: #### 5 7021-8 #### [facility] CLIA [id number] [address] [place] [address] [place] Sodium [Moles/Vol] 142 mmol/L Normal 136-144 [facility] Comment on above: Order Comment: Olga coley Type: BLOOD SPECIMEN Ordering Facility: [facility] Address: [address] [place] [address] Performed By: #### 5 7021-8 #### [facility] CLIA [id number] [address] [place] [address] [place] Urea nitrogen [Mass/Vol] 11 mg/dL Normal 7-21 [facility] Comment on above: Order Comment: Olga coley Type: BLOOD SPECIMEN Ordering Facility: [facility] Address: [address] [address] Performed By: #### 5 7021-8 #### [facility] CLIA [id number] [address] [place] Magnesium SerPl-mCncon 08-13 Magnesium [Mass/Vol] 2.1 mg/dL Normal 1.7-2.3 [facility] Comment on above: Order Comment: Olga ocley Type: BLOOD SPECIMEN Ordering Facility: [facility] Address: [address] [place] [address] Performed By: #### 5 7021-8 #### [facility] CLIA [id number] [address] PT panel Coag (PPP)on 2021 INR Coag (PPP) [Relative time] 2.0 {INR} High 0.9-1.3 [facility] Comment on above: Order Comment: Olga coley Type: BLOOD SPECIMENOrdering Facility: [facility] Address: [address] [place] [address] Result Comment: Maricruz min K Antagonist (VKA) Therapeutic Range: INR 2 to 3 (Target INR of 2.5) Note: For patients treated with VKA drugs, such as warfarin, the [place] [employer] 2012 Guideline recommends a therapeutic INR range of 2 to 3 (target INR of 2.5). This recommendation includes high-risk patients with antiphospholipid syndrome with previous arterial or venous thromboembolism, current-generation mechanical or bioprosthetic aortic heart valve replacement. Note: Patients with mechanical aortic valve replacement and additional risk factors for thromboembolic events (atrial fibrillation, previous thromboembolism, LV dysfunction, hypercoagulable conditions) or an older generation mechanical AVR (i.e., ball in-Cage) or any mechanical MVR should have a INR therapeutic range of 2.5 to 3.5 (target INR of 3). Lisa BARAJAS, et al. Chest 2012, 141:7S-47S Grei RA, et al. JACC 2017, 70: 252-289 Performed By: #### 3 4528-0 ####[facility] [id number] [address] [place] PT Coag (PPP) [Time] 20.1 s High 9.7-13.0 [facility] Comment on above: Order Comment: Olga coley Type: BLOOD SPECIMENOrdering Facility: [facility] Address: [address] [id number] Performed By: #### 3 4528-0 ####[facility] [id number] [place] [address] [place] Bacteria Bld Culton 08-13-19 22 Bacteria identified Cx Nom (Bld) CULTURE, BLOOD: No growth 5 days [facility] Comment on above: Performed By: #### 6 00-7 ####[facility] [id number] [address] Bacteria identified Cx Nom (Bld) CULTURE, BLOOD: No growth 5 days [facility] Comment on above: Performed By: #### 6 00-7 ####[facility] [id number] [address] [place] Bacteria Ur Culton 2 Bacteria identified Cx Nom (U) ORGANISM ID: 1 50,000-<100,000 CFU/ml Escherichia coli Extended-spectrum beta-lactamase (ESBL) production detected in this isolate. ESBL producing strains are considered resistant to all cephalosporins, penicillins, and aztreonam. ORGANISM ID: 1 (ESCHERICHIA COLI) --------- ANTIBIOTIC INTERPRETATION JEMAL STATUS REFERENCE RANGE --------- Amikacin S <=2 F Susceptible <=16 , Intermediate >16 , Resistant >32 Ampicillin R >=32 F Susceptible <=8 , Intermediate >8 , Resistant >16 Cefazolin R >=64 F Susceptible 0-16 , Intermediate <0 or >16 , Resistant >16 Cefepime R F Ceftriaxone R >=64 F Susceptible <=1 , Intermediate >1 , Resistant >=4 Ciprofloxacin R >=4 F Susceptible <0.5 , Intermediate >=.5 , Resistant >=1 Ertapenem S <=0.5 F Susceptible <=0.5 , Intermediate >.5 , Resistant >1 Gentamicin R >=16 F Susceptible <=4 , Intermediate >4 , Resistant >8 Meropenem S <=0.25 F Susceptible <=1 , Intermediate >1 , Resistant >2 Nitrofurantoin S 32 F Susceptible <=32 , Intermediate >32 , Resistant >64 Tobramycin I 8 F Susceptible <=4 , Intermediate >4 , Resistant >8 Trimeth sulfameth R >=320 F Susceptible <=40 , Resistant >40 Abnormal [facility] Comment on above: Performed By: #### 6 30-4 ####[facility] [id number] [place] [address] [place] CBC W Auto Differential pane l (Bld)on 08-12-2021 Basophils (Bld) [#/Vol] 10*3/uL Normal <0.11 [facility] Comment on above: Order Comment: Speci men Type: BLOOD SPECIMEN Ordering Facility: [facility] Address: [address] [place] [address] Performed By: #### 5 7021-8 #### [facility] CLIA [id number] [address] [place] Basophils/100 WBC (Bld) 0.4 % Normal [facility] Comment on above: Order Comment: Speci men Type: BLOOD SPECIMEN Ordering Facility: [facility] Address: [address] [place] [address] Performed By: #### 5 7021-8 #### [facility] CLIA [id number] [address] [place] Differential cell count method Nom (Bld) Auto Normal [facility] Comment on above: Order Comment: Speci men Type: BLOOD SPECIMEN Ordering Facility: [facility] Address: [address] [place] [address] Performed By: #### 5 7021-8 #### [facility] CLIA [id number] [address] Eosinophils (Bld) [#/Vol] 0.07 10*3/uL Normal <0.46 [facility] Comment on above: Order Comment: Speci men Type: BLOOD SPECIMEN Ordering Facility: [facility] Address: [address] [place] [address] Performed By: #### 5 7021-8 #### [facility] CLIA [id number] [address] Eosinophils/100 WBC (Bld) 1.4 % Normal [facility] Comment on above: Order Comment: Speci men Type: BLOOD SPECIMEN Ordering Facility: [facility] Address: [address] [place] [address] Performed By: #### 5 7021-8 #### [facility] CLIA [id number] [address] Erythrocyte distribution width (RBC) [Ratio] 16.9 % High 11.5-15.0 [facility] Comment on above: Order Comment: Speci men Type: BLOOD SPECIMEN Ordering Facility: [facility] Address: [address] [place] [address] Performed By: #### 5 7021-8 #### [facility] CLIA [id number] [address] Hematocrit (Bld) [Volume fraction] 25.7 % Low 36.0-46.0 [facility] Comment on above: Order Comment: Speci men Type: BLOOD SPECIMEN Ordering Facility: [facility] Address: [address] [place] [address] Performed By: #### 5 7021-8 #### [facility] CLIA [id number] [address] [place] Hemoglobin (Bld) [Mass/Vol] 8.1 g/dL Low 11.5-15.5 [facility] Comment on above: Order Comment: Speci men Type: BLOOD SPECIMEN Ordering Facility: [facility] Address: [address] [place] [address] Performed By: #### 5 7021-8 #### [facility] CLIA [id number] [address] IMMATURE GRAN % 0.4 % Normal [facility] Comment on above: Order Comment: Speci men Type: BLOOD SPECIMEN Ordering Facility: [facility] Address: [address] [place] [address] Performed By: #### 5 7021-8 #### [facility] CLIA [id number] [address] IMMATURE GRAN ABS <0.03 Normal <0.10 [facility] Comment on above: Order Comment: Speci men Type: BLOOD SPECIMEN Ordering Facility: [facility] Address: [address] [place] [address] Performed By: #### 5 7021-8 #### [facility] CLIA [id number] [address] Lymphocytes (Bld) [#/Vol] 1.28 10*3/uL Normal 1.00-4.00 [facility] Comment on above: Order Comment: Speci men Type: BLOOD SPECIMEN Ordering Facility: [facility] Address: [address] [place] [address] Performed By: #### 5 7021-8 #### [facility] CLIA [id number] [address] Lymphocytes/100 WBC (Bld) 25.5 % Normal [facility] Comment on above: Order Comment: Speci men Type: BLOOD SPECIMEN Ordering Facility: [facility] Address: [address] [place] [address] Performed By: #### 5 7021-8 #### [facility] CLIA [id number] [address] [place] MCH (RBC) [Entitic mass] 28.7 pg Normal 26.0-34.0 [facility] Comment on above: Order Comment: Speci men Type: BLOOD SPECIMEN Ordering Facility: [facility] Address: [address] [place] [address] Performed By: #### 5 7021-8 #### [facility] CLIA [id number] [address] MCHC (RBC) [Mass/Vol] 31.5 g/dL Normal 30.5-36.[address] [facility] Comment on above: Order Comment: Speci men Type: BLOOD SPECIMEN Ordering Facility: [facility] Address: [address] [place] [address] Performed By: #### 5 7021-8 #### [facility] CLIA [id number] [address] MCV (RBC) [Entitic vol] 91.1 fL Normal 80.0-100.0 [facility] Comment on above: Order Comment: Speci men Type: BLOOD SPECIMEN Ordering Facility: [facility] Address: [address] [place] [address] Performed By: #### 5 7021-8 #### [facility] CLIA [id number] [address] Monocytes (Bld) [#/Vol] 0.75 10*3/uL Normal <0.87 [facility] Comment on above: Order Comment: Speci men Type: BLOOD SPECIMEN Ordering Facility: [facility] Address: [address] [place] [address] Performed By: #### 5 7021-8 #### [facility] CLIA [id number] [address] Monocytes/100 WBC (Bld) 15.0 % Normal [facility] Comment on above: Order Comment: Speci men Type: BLOOD SPECIMEN Ordering Facility: [facility] Address: [address] [place] [address] Performed By: #### 5 7021-8 #### [facility] CLIA [id number] [address] Neutrophils (Bld) [#/Vol] 2.87 10*3/uL Normal 1.45-7.50 [facility] Comment on above: Order Comment: Speci men Type: BLOOD SPECIMEN Ordering Facility: [facility] Address: [address] [place] [address] Performed By: #### 5 7021-8 #### [facility] CLIA [id number] [address] [place] Neutrophils/100 WBC (Bld) 57.3 % Normal [facility] Comment on above: Order Comment: Speci men Type: BLOOD SPECIMEN Ordering Facility: [facility] Address: [address] [place] [address] Performed By: #### 5 7021-8 #### [facility] CLIA [id number] [address] [place] Nucleated RBC (Bld) [#/Vol] 10*3/uL Normal <0.01 [facility] Comment on above: Order Comment: Speci men Type: BLOOD SPECIMEN Ordering Facility: [facility] Address: [address] [place] [address] Performed By: #### 5 7021-8 #### [facility] CLIA [id number] [address] STATES [facility] Nucleated RBC/100 WBC (Bld) [Ratio] 0.0 /100 WBC Normal [facility] Comment on above: Order Comment: Speci men Type: BLOOD SPECIMEN Ordering Facility: [facility] Address: [address] [place] [address] Performed By: #### 5 7021-8 #### [facility] CLIA [id number] [address] [place] [address] [place] Platelet mean volume (Bld) [Entitic vol] 9.6 fL Normal 9.0-12.7 [facility] Comment on above: Order Comment: Speci men Type: BLOOD SPECIMEN Ordering Facility: [facility] Address: [address] [place] [address] Performed By: #### 5 7021-8 #### [facility] CLIA [id number] [address] [place] [address] [place] Platelets (Bld) [#/Vol] 116 10*3/uL Low 150-400 [facility] Comment on above: Order Comment: Speci men Type: BLOOD SPECIMEN Ordering Facility: [facility] Address: [address] [place], [place] [address] Performed By: #### 5 7021-8 #### [facility] CLIA [id number] [address] [place] RBC (Bld) [#/Vol] 2.82 10*6/uL Low 3.90-5.20 [facility] Comment on above: Order Comment: Speci men Type: BLOOD SPECIMEN Ordering Facility: [facility] Address: [address] [place], [place] [address] Performed By: #### 5 7021-8 #### [facility] CLIA [id number] [address] OF [facility] WBC (Bld) [#/Vol] 5.01 10*3/uL Normal 3.70-11.00 [facility] Comment on above: Order Comment: Speci men Type: BLOOD SPECIMEN Ordering Facility: [facility] Address: [address] [place], [place] [address] Performed By: #### 5 7021-8 #### [facility] CLIA [id number] [address] Comprehensive metabolic 2000 panelon 08-12-2021 Albumin [Mass/Vol] 3.1 g/dL Low 3.9-4.9 [facility] Comment on above: Order Comment: Speci men Type: BLOOD SPECIMENOrdering Facility: [facility] Address: [address] [place], [place] [address] Performed By: #### P ADAN, 72374-3 ####[facility] [id number] [address] ALP [Catalytic activity/Vol] 78 U/L Normal 34-123 [facility] Comment on above: Order Comment: Speci men Type: BLOOD SPECIMENOrdering Facility: [facility] Address: [address] [place], [place] [address] Performed By: #### P ROCAL, ####[facility] [id number] [place] [address] [place] ALT [Catalytic activity/Vol] 15 U/L Normal 7-38 [facility] Comment on above: Order Comment: Speci men Type: BLOOD SPECIMENOrdering Facility: [facility] Address: [address] [place] [address] Performed By: #### Jyoti ARELLANO, 16184-5 ####[facility] [id number] [place] [address] [place] Anion gap [Moles/Vol] 8 mmol/L Low 9-[address] [facility] Comment on above: Order Comment: Speci men Type: BLOOD SPECIMENOrdering Facility: [facility] Address: [address] [place] [address] Performed By: #### Jyoti ARELLANO 86011-5 ####[facility] [id number] [address] AST [Catalytic activity/Vol] 31 U/L Normal 13-35 [facility] Comment on above: Order Comment: Speci men Type: BLOOD SPECIMENOrdering Facility: [facility] Address: [address] [place] [address] Performed By: #### Jyoti ARELLANO, 05741-6 ####[facility] [id number] [address] [place] Bilirubin [Mass/Vol] 0.6 mg/dL Normal 0.2-1.3 [facility] Comment on above: Order Comment: Speci men Type: BLOOD SPECIMENOrdering Facility: [facility] Address: [address] [place] [address] Performed By: #### Jyoti ARELLANO, 01967-3 ####[facility] [id number] [address] Calcium [Mass/Vol] 8.7 mg/dL Normal 8.5-10.2 [facility] Comment on above: Order Comment: Speci men Type: BLOOD SPECIMENOrdering Facility: [facility] Address: [address] [place] [address] Performed By: #### P ROCAL, 74672-7 ####[facility] [id number] [place] [address] [place] Chloride [Moles/Vol] 106 mmol/L High 97-105 [facility] Comment on above: Order Comment: Speci men Type: BLOOD SPECIMENOrdering Facility: [facility] Address: [address] [place] [address] Performed By: #### P ROCAL, 62901-9 ####[facility] [id number] [address] [place] CO2 [Moles/Vol] 24 mmol/L Normal 22-30 [facility] Comment on above: Order Comment: Ifrahi men Type: BLOOD SPECIMENOrdering Facility: [facility] Address: [address] [place] [address] Performed By: #### P ROCELBERT, 02010-9 ####[facility]IA [id number] [address] STATES OF [facility] Creatinine [Mass/Vol] 0.78 mg/dL Normal 0.58-0.[address] [facility] Comment on above: Order Comment: Ifrahi vianca Type: BLOOD SPECIMENOrdering Facility: [facility] Address: [address] [place] [address] Performed By: #### P ROCELBERT, 30061-0 ####[facility] [id number] [address] ESTIMATED GLOMERULAR FILTRATION RATE 75 mL/min/1.73m??? Normal >=60 [facility] Comment on above: Order Comment: Olga men Type: BLOOD SPECIMENOrdering Facility: [facility] Address: [address] [place] [address] Result Comment: Huma mated Glomerular Filtration Rate (eGFR) is calculated using the 2020 CKD-EPI creatinine equation. This equation utilizes serum creatinine, sex, and age as parameters. The creatinine assay has traceable calibration to isotope dilution-mass spectrometry. Refer to KDIGO guidelines for clinical interpretation. In patients with unstable renal function, e.g. those with acute kidney injury, the eGFR may not accurately reflect actual GFR. Performed By: #### Jyoti ARELLANO, 57832-3 ####[facility]IA [id number] [place] [address] [place] Glucose [Mass/Vol] 113 mg/dL High 74-99 [facility] Comment on above: Order Comment: Olga coley Type: BLOOD SPECIMENOrdering Facility: [facility] Address: [address] [place] [address] Result Comment: The [place] Diabetes Association (ADA) provides guidance for cutoff values for fasting glucose and random glucose. The ADA defines fasting as no [...] Standards of Medical Care in Diabetes 2016, [place] Diabetes Association. Diabetes Care. 2016.39(Suppl 1). Performed By: #### Jyoti ARELLANO, 84094-5 ####[facility] [id number] [place] [address] [place] Potassium [Moles/Vol] 3.6 mmol/L Low 3.7-5.[address] [facility] Comment on above: Order Comment: Olga coley Type: BLOOD SPECIMENOrdering Facility: [facility] Address: [address] [place] [address] Performed By: #### Jyoti ARELLANO, 25286-7 ####[facility] [id number] [place] [id number] [place] Protein [Mass/Vol] 7.0 g/dL Normal 6.3-8.0 [facility] Comment on above: Order Comment: Olga coley Type: BLOOD SPECIMENOrdering Facility: [facility] Address: [address] [place] [address] Performed By: #### Jyoti ARELLANO, 18523-2 ####[facility] LABORATORYCLIA [id number] [address] [place] Sodium [Moles/Vol] 138 mmol/L Normal 136-144 [facility] Comment on above: Order Comment: Speci men Type: BLOOD SPECIMENOrdering Facility: [facility] Address: [address] [place], [place] [address] Performed By: #### P ROCAL, 95882-4 ####RODAS LABORATORYCLIA [id number] [address] [place] Urea nitrogen [Mass/Vol] 13 mg/dL Normal 7-21 [facility] Comment on above: Order Comment: Speci men Type: BLOOD SPECIMENOrdering Facility: [facility] Address: [address] [place] [address] Performed By: #### P ROCAL, 42529-8 ####RODAS LABORATORYCLIA [id number] [address] OF [facility] ED NOTEon 08-12-2021 ED NOTE HNO ID: [id number] Author: Madonna Dimas RN Service: ? Author Type: Registered Nurse Type: ED Notes Filed: 08/12/2021 7:37 PM Note Text: Pt report was called to [facility] ED NOTE HNO ID: [id number] Author: Madonna Dimas RN Service: ? Author Type: Registered Nurse Type: ED Notes Filed: 08/12/2021 7:32 PM Note Text: Pt is ambulatory Family has been bedside [facility] ED NOTE HNO ID: [id number] Author: Madonna Dimas RN Service: ? Author Type: Registered Nurse Type: ED Notes Filed: 08/12/2021 6:23 PM Note Text: Waiting for a bed assignment in the hospital [facility] ED NOTE HNO ID: [id number] Author: Madonna Dimas RN Service: ? Author Type: Registered Nurse Type: ED Notes Filed: 08/12/2021 3:42 PM Note Text: Pt report was received [facility] ED NOTE HNO ID: [id number] Author: Marcela Sandoval RN Service: Nursing Author Type: Registered Nurse Type: ED Notes Filed: 08/12/2021 3:30 PM Note Text: Pt was brought into the ED with daughter and another family member. Daughter reports multiple UTI symptoms. Was seen by her PCP's office and had a UA sent but does not have the results back yet. Daughter concerned because the pt started with a fever and hematuria today. [facility] ED PROV NOTEon 08-12-2021 ED PROV NOTE HNO ID: [id number] Author: Page Dudley MD Service: ? Author Type: Physician Type: ED Provider Notes Filed: 08/12/2021 8:58 PM Note Text: ED Provider Note Patient Name: Christian Landrum : 1935 SERVICE DATE: 08/12/21 History Patient presents with: UTI 86-year-old female, with a history of A. fib on Coumadin, coronary artery disease, asthma, remote history of breast CA, hypertension, hyperlipidemia, presents to the ED with concern for UTI. The patient has a history of recurrent UTI. She has been having dysuria and low-grade fevers for the last few days. She had given a urine sample which has does not have a culture returned as of yet. Today she states that she is starting to have urinary retention and is also having hematuria described as small clots. She is on an estrogen cream to help with prevention of UTIs. She was admitted earlier this month at [facility] for sepsis, seemingly from a UTI. She has not had a documented fever today. No nausea vomiting diarrhea. She has some mild bladder discomfort but no upper abdominal pain. History provided by: Patient and relative PAST MEDICAL HISTORY Diagnosis Date - Abdominal pain, left lower quadrant long standing - Arrhythmia - Arthritis - Asthma - Atrial fibrillation (HCC) 2009 - Atrophic vaginitis - Benign neoplasm of colon - C. 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 Tachycardia -05/2009 - History of recurrent UTIs - HX OF BREAST CANCER 06/2007 breast cancer left - Hypertension - Irritable bowel syndrome - Lumbago - Malignant neoplasm of lower-inner quadrant of right breast of female, estrogen receptor positive (HCC) 06/03/2017 - Mitral valve disorders(424.0) and irregular heartbeat on occasion stress related - Mixed stress and urge urinary incontinence - Osteoarthrosis, unspecified whether generalized or localized, other specified sites 07/22 vit D 41 - Other diseases of pharynx, not elsewhere classified(478.29) - Other extrapyramidal disease and abnormal movement disorder - PMH - PAST MEDICAL HISTORY OF benign mass on liver - PMR (polymyalgia rheumatica) (HCC) 2012 - Pure hypercholesterolemia - Snoring - 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 - Symptomatic menopausal or female climacteric states IN HER 50S 05/22 NORMAL BONE DENSITY - Syncope - Thyroid disease - 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 - Unspecified hemorrhoids without mention of complication Hemorrhoids - Unspecified sleep apnea use CPAP SEVERAL YRS - UTI (lower urinary tract infection) 2012 frequent PAST SURGICAL HISTORY Procedure Laterality Date - [...] diverticulosis - ESOPHAGOGASTRODUODENOSCOPY TRANSORAL DIAGNOSTIC 01/09/2021 - INCISE FINGER TENDON SHEATH Right 06/28/2020 Right ring and little trigger finger releases - INCISE FINGER TENDON SHEATH Left 09/28/2020 Left ring trigger finger release - INSJ TUNNELED CTR VAD W/SUBQ PORT AGE 5 YR/> 10/06/2007 Right Subclavian - MASTECTOMY, SIMPLE, COMPLETE 08/04/2007 left breast with SLND/ALND - MASTECTOMY, SIMPLE, COMPLETE Right 08/29/2015 right mastectomy with SLND - PAST SURGICAL HISTORY OF bilat CTR, had endometrial bx 2004 - PAST SURGICAL HISTORY OF 12/2011 removal of lesion of Lt eyelid - PAST SURGICAL HISTORY OF 1982 Rt ovary removed - PAST SURGICAL HISTORY OF 01/03/2017 breast surgery - REMOVE TONSILS/ADENOIDS,<12 (more content not included)... Normal [facility] Gas and Carbon monoxide pane l (BldV)on 08-12-2021 Base excess Calc (BldV) [Moles/Vol] 0 mmol/L Normal 0-2 [facility] Comment on above: Order Comment: Speci men Type: VENOUS BLOOD SPECIMENOrdering Facility: [facility] Address: [address] [address] Performed By: #### 2 4344-4 ####[facility] RESPIRATORYCLIA [id number] [facility]IRAT[facility] [id number] [address] [address] Carboxyhemoglobin (BldV) [Mass fraction] 1.0 % Normal 0.0-2.0 [facility] Comment on above: Order Comment: Speci men Type: VENOUS BLOOD SPECIMENOrdering Facility: [facility] Address: [address] [address] Performed By: #### 2 4344-4 ####[facility] RESPIRATORYCLIA [id number] [facility] [id number] [address] [address] CO2 (BldV) [Partial pressure] 39 mm[Hg] Low 42-55 [facility] Comment on above: Order Comment: Speci men Type: VENOUS BLOOD SPECIMENOrdering Facility: [facility] Address: [address] [address] Performed By: #### 2 4344-4 ####[facility] RESPIRATORYCLIA [id number] [facility]IRAT[facility] [id number] [address] CO2 adjusted to patient's actual temperature (BldV) [Partial pressure] Normal [facility] Comment on above: Order Comment: Speci men Type: VENOUS BLOOD SPECIMENOrdering Facility: [facility] Address: [address] [place] [address] Performed By: #### 2 4344-4 ####[facility]PIRATORYWHITE [facility]IVER [facility] [id number] [facility]OS[facility] RESPIRATORY [id number] [address] [address] HCO3 (Bld) [Moles/Vol] 24 mmol/L Normal 24-28 [facility] Comment on above: Order Comment: Speci men Type: VENOUS BLOOD SPECIMENOrdering Facility: [facility] Address: [address] [place] [address] Performed By: #### 2 4344-4 ####[facility] [id number] [facility]OS[facility] RESPIRATORY [id number] [place] [address] Hemoglobin (Bld) [Mass/Vol] 15.3 g/dL Normal 11.5-15.5 [facility] Comment on above: Order Comment: Speci men Type: VENOUS BLOOD SPECIMENOrdering Facility: [facility] Address: [address] [place] [address] Performed By: #### 2 4344-4 ####[facility] RESPIRATORYWHITE RIVER [facility]UN[facility] [id number] HOSP[facility] RESPIRATORY [id number] [address] [address] Lactate [Moles/Vol] 1.9 mmol/L Normal 0.5-2.2 [facility] Comment on above: Order Comment: Speci men Type: VENOUS BLOOD SPECIMENOrdering Facility: [facility] Address: [address] [place] [address] Performed By: #### 2 4344-4 ####[facility] RESPIRATORYWHITE RIVER JUNCTION [facility] [id number] [facility]OS[facility] RESPIRATORY [id number] [address] [address] Methemoglobin (Bld) [Mass fraction] % Normal 0.0-1.5 [facility] Comment on above: Order Comment: Speci men Type: VENOUS BLOOD SPECIMENOrdering Facility: [facility] Address: [address] Performed By: #### 2 4344-4 ####[facility] RESPIRATORYCLIA [id number] [facility]OS[facility] RESPIRATORY [id number] [address] [address] O2 THERAPY RA=Room Air Normal [facility] Comment on above: Order Comment: Speci men Type: VENOUS BLOOD SPECIMENOrdering Facility: [facility] Address: [address] Performed By: #### 2 4344-4 ####[facility] RESPIRATORYCLIA [id number] [facility] RESPIRAT[facility] [id number] [address] [address] Oxygen (BldV) [Partial pressure] 43 mm[Hg] Normal 35-45 [facility] Comment on above: Order Comment: Speci men Type: VENOUS BLOOD SPECIMENOrdering Facility: [facility] Address: [address] [address] Performed By: #### 2 4344-4 ####[facility] RESPIRATORYIA [id number] [facility]OSP[facility] RESPIRATORY [id number] [address] [address] Oxygen adjusted to patient's actual temperature (BldV) [Partial pressure] Normal [facility] Comment on above: Order Comment: Speci men Type: VENOUS BLOOD SPECIMENOrdering Facility: [facility] Address: [address] Performed By: #### 2 4344-4 ####[facility] RESPIRATORYCLIA [id number] [facility]OS[facility] RESPIRATORY [id number] [address] [address] Oxyhemoglobin (BldV) [Mass fraction] 74 % Normal 60-85 [facility] Comment on above: Order Comment: Speci men Type: VENOUS BLOOD SPECIMENOrdering Facility: [facility] Address: [address] Performed By: #### 2 4344-4 ####[facility] RESPIRATORYCLIA [id number] [facility]OS[facility] RESPIRATORY [id number] [address] pH (BldV) 7.41 [pH] Normal 7.32-7.42 [facility] Comment on above: Order Comment: Olga coley Type: VENOUS BLOOD SPECIMENOrdering Facility: [facility] Address: [address] [place] [address] Performed By: #### 2 4344-4 ####[facility] RESPIRATORYCLIA [id number] [facility] RES[facility]IRAT[facility] [id number] [address] [address] pH adjusted to patient's actual temperature (BldV) Normal [facility] Comment on above: Order Comment: Olga coley Type: VENOUS BLOOD SPECIMENOrdering Facility: [facility] Address: [address] [place] [address] Performed By: #### 2 4344-4 ####[facility] RESPIRATORYWHITE RIVER JUN[facility] [id number] [facility]OSP[facility] RESPIRATORY [id number] [place] [address] Potassium [Moles/Vol] 3.6 mmol/L Normal 3.5-5.[address] [facility] Comment on above: Order Comment: Olga coley Type: VENOUS BLOOD SPECIMENOrdering Facility: [facility] Address: [address] [place] [address] Performed By: #### 2 4344-4 ####[facility] RESPIRATORYWHITE RIVER [facility]UN[facility] [id number] [facility]OS[facility] RESPIRATORY [id number] [place] [address] HISTORY PHYSICALon HISTORY PHYSICAL HNO ID: [id number] Author: Vania Oliveira APRN.CNP Service: Hospital Medicine Author Type: Nurse Practitioner Type: HANDP Filed: 08/12/2021 8:39 PM Note Text: Attestation signed by Mine Parsons MD at 08/13/2021 7:38 AM I have reviewed the HANDP obtained and documented by the nurse practitioner/PA and I personally participated in the heredia components. I have discussed the case and management of the patient's care with the nurse practitioner/pa. The following note reflects revised and or confirmed relevant heredia components of the POC. DEPARTMENT OF HOSPITAL MEDICINE HISTORY AND PHYSICAL EXAM SERVICE DATE: 08/12/2021 Code Status: Prior SERVICE TIME: 6:22 PM Primary Care Physician: Galina Iraheta MD NIGHT AND WEEKEND COVERAGE: [facility] COVERAGE: Days: [phone], please page attending physician. Nights: [phone], please page [facility] Night coverage pager [phone]. Subjective CHIEF COMPLAINT: dysuria HPI: 86yo female with PMH A fib (On Coumadin), remote breast Ca, CAD, HTN, presents today with complaints of dysuria that has been ongoing since her last admission. Patient reports when she left the hospital, she felt fairly good for about 2 days, then began to experience dysuria. Patient reports symptoms gradually worsened and 3 days ago she developed chills with associated fevers (Tmax 100.4F) and fatigue. Patient called her PCP and a UA was ordered, however urine culture was never sent, thus antibiotics were not started. Patient attempted to provide a new sample 2 days ago, but by this morning she felt even worse, thus she presented to the ED for further evaluation. Patient denies CP, N/V/D/C. No reported blood in stools. Of note, patient had recent admission 07/06/21-07/12/21 for fevers likely 2/2 easton-sensitive E. Coli UTI. Patient was treated with 7 days of IV antibiotics. Patient had ABD pain while hospitalized with slightly elevated LFTs and SBO was ruled out along with ascites survey was negative. On 07/07/21 patient had SUCCESSFUL FLUOROSCOPICALLY GUIDED ASPIRATION OF THE RIGHT HIP; negative infectious workup. Patient was discharged to SNF in stable condition. Patient was discharged from rehab and has been home for a few weeks and has been working with home PT once a week. In the ED: CMP- unremarkable CBC- Hgb 8.1 UA + LE, trace Hgb, >25k WBC INR 2.0 Treatment- Ceftriaxone Patient remained hemodynamically stable. Patient's family concerned for sepsis as this was diagnosed recently at [facility], thus requesting admission for IV antibiotics. Patient will be admitted for further treatment of UTI. PAST MEDICAL HISTORY Diagnosis Date - Abdominal pain, left lower quadrant long standing - Arrhythmia - Arthritis - Asthma - Atrial fibrillation (HCC) 2009 - Atrophic vaginitis - Benign neoplasm of colon - C. 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 Tachycardia 2-05/2009 - History of recurrent UTIs - HX OF BREAST CANCER 06/2007 breast cancer left - Hypertension - Irritable bowel syndrome - Lumbago - Malignant neoplasm of lower-inner quadrant of right breast of female, estrogen receptor positive (HCC) 06/03/2017 - Mitral valve disorders(424.0) and irregular heartbeat on occasion stress related - Mixed stress and urge urinary incontinence - Osteoarthrosis, unspecified whether generalized or localized, other specified sites 07/22 vit D 41 - Other diseases of pharynx, not elsewhere classified(478.29) - Other extrapyramidal disease and abnormal movement disorder - PMH - PAST MEDICAL HISTORY OF benign mass on liver - PMR (polymyalgia rheumatica) (HCC) 2012 - Pure hypercholesterolemia - Snoring - 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 - Symptomatic menopausal or female climacteric states IN HER 50S 05/22 NORMAL BONE DENSITY - Syncope - Thyroid disease - 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 Normal [facility] PROCALCITONIN (LAB)on 2021 Procalcitonin [Mass/Vol] 0.11 ng/mL High <0.09 [facility] Comment on above: Order Comment: Olga coley Type: BLOOD SPECIMENOrdering Facility: [facility] Address: [address] [place] [address] Result Comment: For a guided interpretation of test results, please visit the Change in Procalcitonin Calculator, [email or web address]. Performed By: #### P ADAN, 57735-6 ####[facility] LABORATORYCLIA [id number] [address] OF [facility] PT panel Coag (PPP)on 2021 INR Coag (PPP) [Relative time] 2.0 {INR} High 0.9-1.3 [facility] Comment on above: Order Comment: Speci vianca Type: BLOOD SPECIMENOrdering Facility: [facility] Address: [address] [place], [place] [address] Result Comment: Maricruz min K Antagonist (VKA) Therapeutic Range: INR 2 to 3 (Target INR of 2.5) Note: For patients treated with VKA drugs, such as warfarin, the [place] [employer] 2012 Guideline recommends a therapeutic INR range of 2 to 3 (target INR of 2.5). This recommendation includes high-risk patients with antiphospholipid syndrome with previous arterial or venous thromboembolism, current-generation mechanical or bioprosthetic aortic heart valve replacement. Note: Patients with mechanical aortic valve replacement and additional risk factors for thromboembolic events (atrial fibrillation, previous thromboembolism, LV dysfunction, hypercoagulable conditions) or an older generation mechanical AVR (i.e., ball in-Cage) or any mechanical MVR should have a INR therapeutic range of 2.5 to 3.5 (target INR of 3). Lisa BARAJAS, et al. Chest 2012, 141:7S-47S Geri LYNCH et al. [facility] 2017, 70: 252-289 Performed By: #### 3 4528-0, 53987-0 ####[facility] LABORATORYCLIA [id number] [place] [address] [place] PT Coag (PPP) [Time] 20.3 s High 9.7-13.0 [facility] Comment on above: Order Comment: Speci men Type: BLOOD SPECIMENOrdering Facility: [facility] Address: [address] [place] [address] Performed By: #### 3 4528-0, 10298-5 ####[facility] LABORATORYCLIA [id number] [address] [place] SARS-CoV-2 RNA Resp Ql DEMARCUS+p robeon 08-12-2021 SARS-CoV-2 (COVID-19) RNA DEMARCUS+probe Ql (Resp) COVID 19 RESULT: SARS-CoV-2 (Agent of COVID-19) Not Detected by RT-PCR or equivalent method. This test has been authorized by FDA under an Emergency Use Authorization (EUA). Normal [facility] Comment on above: Performed By: #### 9 4500-6 ####[facility] LABORATORYCLIA [id number] [address] [place] URINALYSIS, REFLEX MICROSCOP ICon 08-12-2021 Bilirubin Ql (U) Negative Normal Negative [facility] Comment on above: Order Comment: Speci men Type: URINE SPECIMENOrdering Facility: [facility] Address: [address] [place] [address] Performed By: #### L [id number] ####[facility] LABORATORYIA [id number] [address] [place] Clarity (Unsp spec) Clear Normal Clear [facility] Comment on above: Order Comment: Speci men Type: URINE SPECIMENOrdering Facility: [facility] Address: [address] [place] [address] Performed By: #### L [id number] ####[facility] LABORATORYCLIA [id number] [address] Color (U) Yellow Normal Yellow [facility] Comment on above: Order Comment: Speci men Type: URINE SPECIMENOrdering Facility: [facility] Address: [address] [place] [address] Performed By: #### L [id number] ####[facility] LABORATORYCLIA [id number] [address] Glucose Test strip (U) [Mass/Vol] Negative Normal Negative [facility] Comment on above: Order Comment: Speci men Type: URINE SPECIMENOrdering Facility: [facility] Address: [address] [address] Performed By: #### L [id number] ####[facility] LABORATORYCLIA [id number] [address] Hemoglobin Ql (U) Trace Abnormal Negative [facility] Comment on above: Order Comment: Speci men Type: URINE SPECIMENOrdering Facility: [facility] Address: [address] [place] [address] Performed By: #### L [id number] ####[facility] LABORATORYCLIA [id number] [address] Ketones Ql (U) Negative Normal Negative [facility] Comment on above: Order Comment: Speci men Type: URINE SPECIMENOrdering Facility: [facility] Address: [address] [place] [address] Performed By: #### L [id number] ####[facility] LABORATORYCLIA [id number] [address] Leukocyte esterase Test strip Ql (U) 3+ Abnormal Negative [facility] Comment on above: Order Comment: Speci men Type: URINE SPECIMENOrdering Facility: [facility] Address: [address] [address] Performed By: #### L [id number] ####[facility] LABORATORYCLIA [id number] [place] [address] [place] Nitrite Ql (U) Negative Normal Negative [facility] Comment on above: Order Comment: Speci men Type: URINE SPECIMENOrdering Facility: [facility] Address: [address] [address] Performed By: #### L [id number] ####[facility] LABORATORYCLIA [id number] [address] [place] pH (U) 6.5 [pH] Normal 5.0-8.0 [facility] Comment on above: Order Comment: Speci men Type: URINE SPECIMENOrdering Facility: [facility] Address: [address] [place] [address] Performed By: #### L [id number] ####[facility] LABORATORYCLIA [id number] [address] Protein (U) [Mass/Vol] Negative Normal Negative [facility] Comment on above: Order Comment: Speci men Type: URINE SPECIMENOrdering Facility: [facility] Address: [address] [place] [address] Performed By: #### L [id number] ####[facility] MED[facility] CENTERCLIA [id number] [place] [address] [place] RBC LM.HPF (Urine sed) [#/Area] 0-3 /HPF Normal 0-3 /HPF [facility] Comment on above: Order Comment: Speci men Type: URINE SPECIMENOrdering Facility: [facility] Address: [address] [place] [address] Performed By: #### L [id number] ####[facility] MEDICAL CENTERIA [id number] [address] [place] Specific gravity (U) [Rel density] <=1.005 Low 1.005-1.030 [facility] Comment on above: Order Comment: Speci men Type: URINE SPECIMENOrdering Facility: [facility] Address: [address] [place] [address] Performed By: #### L [id number] ####[facility] LABORATORYCLIA [id number] [address] [place] Urobilinogen Ql (U) 0.2 EU/dL Normal 0.2-1.0 EU/dL [facility] Comment on above: Order Comment: Speci men Type: URINE SPECIMENOrdering Facility: [facility] Address: [address] [place] [address] Performed By: #### L [id number] ####[facility] LABORATORYCLIA [id number] [place] [address] [place] WBC LM.HPF (Urine sed) [#/Area] /[HPF] Abnormal 0-5 /HPF [facility] Comment on above: Order Comment: Speci men Type: URINE SPECIMENOrdering Facility: [facility] Address: [address] [place] [address] Performed By: #### L [id number] ####[facility] LABORATORYCLIA [id number] [place] [id number] [place] US DVT LOWER LTon 08-12-2021 US DVT LOWER LT * * *Final Report* * * DATE OF EXAM: Aug 12 2021 9:42PM MDU 1006 - US DVT LOWER LT / PROCEDURE REASON: Leg deep vein thrombosis (DVT) suspected * * * * Physician Interpretation * * * * EXAMINATION: LEFT LOWER EXTREMITY DEEP VENOUS ULTRASOUND WITH DOPPLER IMAGING CLINICAL HISTORY: Lower extremity swelling TECHNIQUE: Grayscale with compression maneuvers, color Doppler and spectral Doppler imaging of the left proximal deep veins was performed. Grayscale with compression maneuvers of the peroneal and posterior tibial veins was performed. The left great and small saphenous veins were evaluated at their insertion to the deep system. The contralateral common femoral vein was imaged for comparison. Images were obtained and stored in a permanent archive. MQ: [id number] COMPARISON: None RESULT: LEFT LOWER EXTREMITY PROXIMAL DEEP VEINS Distal External Iliac, Common Femoral and proximal Profunda Veins: Compression: Normal Doppler: Normal, spontaneous respirophasic flow. Normal response to augmentation. Femoral vein: Compression: Normal Doppler: Normal, spontaneous flow. Normal response to augmentation. Popliteal vein: Compression: Normal Doppler: Normal, spontaneous flow. Normal response to augmentation. CALF DEEP VEINS Peroneal veins: Normal compression. Posterior tibial veins: Normal compression. Gastrocnemius and Soleal veins: Not imaged. SUPERFICIAL VEINS Great saphenous: Patent and compressible at insertion into common femoral vein; not otherwise assessed. Small Saphenous: Patent and compressible in the proximal calf, not otherwise assessed. RIGHT LOWER EXTREMITY (FOR COMPARISON) Common Femoral Vein: Compression: Normal Doppler: Normal, spontaneous respirophasic flow. Normal response to augmentation. IMPRESSION: Negative study for proximal DVT in the left lower extremity. Negative study for calf DVT in the left lower extremity. Negative study for superficial thrombophlebitis in the imaged segments of the left lower extremity. Lifeguard: PSCB Transcribe Date/Time: Aug 12 2021 9:49P Dictated by : MEHRDAD INIGUEZ MD This examination was interpreted and the report reviewed and electronically signed by: MEHRDAD INIGUEZ MD on Aug 12 2021 9:50PM EST [id number] Normal [facility] aPTT PPPon 08-12-2021 aPTT Coag (PPP) [Time] 72.9 s High 23.0-32.4 [facility] Comment on above: Order Comment: Speci men Type: BLOOD SPECIMENOrdering Facility: [facility] Address: [address] [place] [id number] Performed By: #### 3 [id number], [id number] ####[facility] LABORATORYCLIA [id number] [place] [id number] [place] [facility] UA DIP, URINE (POC)on 2021 BILIRUBIN UA (POCT) Negative Negative [facility] CLARITY UA (POCT) Clear [facility] COLOR UA (POCT) Yellow [facility] GLUCOSE UA (POCT) Negative Negative mg/dL [facility] HEMOGLOBIN/BLOOD UA (POCT) Trace-intact Abnormal Negative [facility] KETONE UA (POCT) Negative Negative mg/dL [facility] LEUKOCYTES UA (POCT) Small Abnormal Negative [facility] NITRITE UA (POCT) Negative Negative [facility] PH UA (POCT) 6.5 4.5 - 8.0 [facility] Protein Ql (U) Negative Negative mg/dL [facility] SPECIFIC GRAVITY UA (POCT) 1.010 1.005 - 1.030 [facility] UROBILINOGEN UA (POCT) 0.2 E.U./dL Winifred l E.U./dL [facility] Absolute lymphocyte counton 07-23-2021 Lymphocytes Auto (Unsp spec) [#/Vol] 1.68 10*3/uL 0.83-4.51 [facility] Work Phone: Basophil percentageon 2021 Basophils/100 WBC (Bld) 0.7 % 0-1 [facility] Work Phone: Chloride [Moles/Vol] 109 mmol/L 98-107 [facility] Work Phone: Eosinophils/100 WBC (Bld) 1.3 % 0-5 [facility] Work Phone: Glucose [Mass/Vol] 79 mg/dL 74-106 [facility] Work Phone: Neutrophils (Bld) [#/Vol] 4.3 10*3/uL 2.0-7.7 [facility] Work Phone: Neutrophils/100 WBC (Bld) 61.7 % 47-70 [facility] Work Phone: Potassium [Moles/Vol] 3.8 mmol/L 3.5-5.1 [facility] Work Phone: Sodium [Moles/Vol] 143 mmol/L 136-145 [facility] Work Phone: WBC (Bld) [#/Vol] 7.0 10*3/uL 4.4-11.0 [facility] Work Phone: Blood erythrocytes count (nu mber/volume)on 07-23-2021 RBC (Bld) [#/Vol] 3.00 10*6/uL 4.2-5.4 [place] Work Phone: Blood hemoglobin measurement (mass/volume)on 07-23-2021 Hemoglobin (Bld) [Mass/Vol] 9.0 g/dL 12.0-15.0 [facility] Work Phone: Blood lymphocytes/100 leukoc yteson 07-23-2021 Lymphocytes/100 WBC (Bld) 24.1 % 19-41 [facility] Work Phone: Blood monocytes/100 leukocyt eson 07-23-2021 Monocytes/100 WBC (Bld) 12.1 % 0-10 [facility] Work Phone: Blood platelet mean volumeon 07-23-2021 Platelet mean volume (Bld) [Entitic vol] 9.5 fL 6.2-12.0 [facility] Work Phone: [phone] Determination of erythrocyte mean corpuscular volume (MCV)on 07-23-2021 MCV (RBC) [Entitic vol] 94.0 fL 81-99 [facility] Work Phone: Hematocrit Auto (Bld) [Volum e fraction]on 07-23-2021 Hematocrit (Bld) [Volume fraction] 28.2 % 37-47 [facility] Work Phone: [phone] INR in Blood by Coagulation assayon 07-23-2021 INR Coag (Bld) [Relative time] 2.6 {INR} [facility] Work Phone: [phone] Laboratory - Chemistry and C hemistry - challengeon 07-23-2021 CO2 [Moles/Vol] 28.0 mmol/L 21.0-32.0 [facility] Work Phone: [phone] Magnesium [Mass/Vol] 2.2 mg/dL 1.6-2.6 [facility] Work Phone: [phone] Urea nitrogen/Creatinine [Mass ratio] 21.6 mg/mg 10-20 [facility] Work Phone: [phone] Laboratory - Coagulationon 0 07-23-2021 PT Coag (PPP) [Time] 27.5 s 11.7-14.9 [facility] Work Phone: [phone] Laboratory - Hematology and Cell countson 07-23-2021 Erythrocyte distribution width (RBC) [Entitic vol] 58.2 fL 35.1-43.9 [facility] Work Phone: [phone] Erythrocyte distribution width (RBC) [Ratio] 16.9 % 11.6-14.6 [facility] Work Phone: [phone] Immature granulocytes/100 WBC (Bld) 0.100 % 0.0-0.9 [facility] Work Phone: [phone] Comment on above: IG% - Immature Granu locytes (promyelocytes, myelocytes and metamyelocytes) > 1% indicates that a LEFT SHIFT is Present. MCH (RBC) [Entitic mass] 30.0 pg 27.0-32.0 [facility] Work Phone: Nucleated RBC/100 WBC (Bld) [Ratio] 0 % 0-5 [facility] Work Phone: MCHC Auto (RBC) [Mass/Vol]on 07-23-2021 MCHC (RBC) [Mass/Vol] 31.9 g/dL 32-36 [facility] Work Phone: No Panel Informationon 07-23 Estimated GFR (MDRD) Amer 112 mL/min >60 [facility] Work Phone: Comment on above: GFR Calc Estimated GFR (MDRD) Non-Af Amer 92 mL/min >60 [facility] Work Phone: Comment on above: Non- GFR Calc Platelets bldon 07-23-2021 Platelets (Bld) [#/Vol] 178 10*3/uL 150-450 [facility] Work Phone: Serum or plasma calcium yonatan urement (mass/volume)on 07-23-2021 Calcium [Mass/Vol] 8.9 mg/dL 8.5-10.1 [facility] Work Phone: Serum or plasma creatinine m easurement (mass/volume)on 07-23-2021 Creatinine [Mass/Vol] 0.65 mg/dL 0.55-1.02 [facility] Work Phone: Comment on above: The validity of the calculated GFR & GFRAA in patients over 70 years has not been determined. Clinical correlation is essential. Serum or plasma urea nitroge n measurement (mass/volume)on 07-23-2021 Urea nitrogen [Mass/Vol] 14 mg/dL 7-18 [facility] Work Phone: Thin prep Papanicolaou smear with manual screeningon 07-23-2021 Thin prep Papanicolaou smear with manual screening 6 5-15 [facility] Work Phone: Absolute lymphocyte counton 07-16-2021 Lymphocytes Auto (Unsp spec) [#/Vol] 1.54 10*3/uL 0.83-4.51 [facility] Work Phone: Basophil percentageon 2021 Basophils/100 WBC (Bld) 0.6 % 0-1 [facility] Work Phone: Chloride [Moles/Vol] 109 mmol/L 98-107 [facility] Work Phone: Eosinophils/100 WBC (Bld) 2.5 % 0-5 [facility] Work Phone: Glucose [Mass/Vol] 66 mg/dL 74-106 [facility] Work Phone: Neutrophils (Bld) [#/Vol] 4.2 10*3/uL 2.0-7.7 [facility] Work Phone: Neutrophils/100 WBC (Bld) 63.4 % 47-70 [facility] Work Phone: Potassium [Moles/Vol] 4.0 mmol/L 3.5-5.1 [facility] Work Phone: Sodium [Moles/Vol] 141 mmol/L 136-145 [facility] Work Phone: WBC (Bld) [#/Vol] 6.7 10*3/uL 4.4-11.0 [facility] Work Phone: Blood erythrocytes count (nu mber/volume)on 07-16-2021 RBC (Bld) [#/Vol] 3.05 10*6/uL 4.2-5.4 [place] Work Phone: Blood hemoglobin measurement (mass/volume)on 07-16-2021 Hemoglobin (Bld) [Mass/Vol] 9.1 g/dL 12.0-15.0 [facility] Work Phone: Blood lymphocytes/100 leukoc yteson 07-16-2021 Lymphocytes/100 WBC (Bld) 23.1 % 19-41 [facility] Work Phone: Blood monocytes/100 leukocyt eson 07-16-2021 Monocytes/100 WBC (Bld) 10.3 % 0-10 [facility] Work Phone: [phone] Blood platelet mean volumeon 07-16-2021 Platelet mean volume (Bld) [Entitic vol] 9.7 fL 6.2-12.0 [facility] Work Phone: [phone] Determination of erythrocyte mean corpuscular volume (MCV)on 07-16-2021 MCV (RBC) [Entitic vol] 95.4 fL 81-99 [facility] Work Phone: Hematocrit Auto (Bld) [Volum e fraction]on 07-16-2021 Hematocrit (Bld) [Volume fraction] 29.1 % 37-47 [facility] Work Phone: [phone] INR in Blood by Coagulation assayon 07-16-2021 INR Coag (Bld) [Relative time] 1.8 {INR} [facility] Work Phone: [phone] Laboratory - Chemistry and C hemistry - challengeon 07-16-2021 CO2 [Moles/Vol] 27.0 mmol/L 21.0-32.0 [facility] Work Phone: [phone] Urea nitrogen/Creatinine [Mass ratio] 25.0 mg/mg 10-20 [facility] Work Phone: [phone] Laboratory - Coagulationon 0 07-16-2021 PT Coag (PPP) [Time] 20.7 s 11.7-14.9 [facility] Work Phone: [phone] Laboratory - Hematology and Cell countson 07-16-2021 Erythrocyte distribution width (RBC) [Entitic vol] 60.8 fL 35.1-43.9 [facility] Work Phone: [phone] Erythrocyte distribution width (RBC) [Ratio] 17.3 % 11.6-14.6 [facility] Work Phone: Immature granulocytes/100 WBC (Bld) 0.100 % 0.0-0.9 [facility] Work Phone: [phone] Comment on above: IG% - Immature Granu locytes (promyelocytes, myelocytes and metamyelocytes) > 1% indicates that a LEFT SHIFT is Present. MCH (RBC) [Entitic mass] 29.8 pg 27.0-32.0 [facility] Work Phone: Nucleated RBC/100 WBC (Bld) [Ratio] 0 % 0-5 [facility] Work Phone: MCHC Auto (RBC) [Mass/Vol]on 07-16-2021 MCHC (RBC) [Mass/Vol] 31.3 g/dL 32-36 [facility] Work Phone: No Panel Informationon 07-16 Estimated GFR (MDRD) Amer 122 mL/min >60 [facility] Work Phone: Comment on above: GFR Calc Estimated GFR (MDRD) Non-Af Amer 101 mL/min >60 [facility] Work Phone: Comment on above: Non- GFR Calc Thyroid Stimulating Hormone (TSH) 2.10 uIU/mL 0.358-3.74 [facility] Work Phone: Platelets bldon 07-16-2021 Platelets (Bld) [#/Vol] 228 10*3/uL 150-450 [facility] Work Phone: Serum or plasma calcium yonatan urement (mass/volume)on 07-16-2021 Calcium [Mass/Vol] 9.0 mg/dL 8.5-10.1 [facility] Work Phone: Serum or plasma creatinine m easurement (mass/volume)on 07-16-2021 Creatinine [Mass/Vol] 0.60 mg/dL 0.55-1.02 [facility] Work Phone: Comment on above: The validity of the calculated GFR & GFRAA in patients over 70 years has not been determined. Clinical correlation is essential. Serum or plasma urea nitroge n measurement (mass/volume)on 07-16-2021 Urea nitrogen [Mass/Vol] 15 mg/dL 7-18 [facility] Work Phone: Thin prep Papanicolaou smear with manual screeningon 07-16-2021 Thin prep Papanicolaou smear with manual screening 5 5-15 [facility] Work Phone: Absolute lymphocyte counton 07-13-2021 Lymphocytes Auto (Unsp spec) [#/Vol] 1.70 10*3/uL 0.83-4.51 [facility] Work Phone: [phone] Basophil percentageon 2021 Basophils/100 WBC (Bld) 0.7 % 0-1 [facility] Work Phone: [phone] Cholesterol [Mass/Vol] 113 mg/dL <200 [facility] Work Phone: Comment on above: <200 mg/dL Desirable 200-240 mg/dL Borderline >240 mg/dL High Risk Eosinophils/100 WBC (Bld) 2.9 % 0-5 [facility] Work Phone: [phone] Neutrophils (Bld) [#/Vol] 5.5 10*3/uL 2.0-7.7 [facility] Work Phone: [phone] Neutrophils/100 WBC (Bld) 65.5 % 47-70 [facility] Work Phone: Triglyceride [Mass/Vol] 95 mg/dL <199 [facility] Work Phone: Comment on above: The drugs N-Acetylcy steine and Metamizole may falsely depress this assay.Serum Triglycerides Reference Interval Normal <150 mg/dL Borderline high 150 - 199 mg/dL High 200 - 499 mg/dL Very High > or = 500 mg/dL WBC (Bld) [#/Vol] 8.4 10*3/uL 4.4-11.0 [facility] Work Phone: Blood erythrocytes count (nu mber/volume)on 07-13-2021 RBC (Bld) [#/Vol] 3.14 10*6/uL 4.2-5.4 [place] Work Phone: Blood hemoglobin measurement (mass/volume)on 07-13-2021 Hemoglobin (Bld) [Mass/Vol] 9.4 g/dL 12.0-15.0 [facility] Work Phone: Blood lymphocytes/100 leukoc yteson 07-13-2021 Lymphocytes/100 WBC (Bld) 20.3 % 19-41 [facility] Work Phone: Blood monocytes/100 leukocyt eson 07-13-2021 Monocytes/100 WBC (Bld) 10.0 % 0-10 [facility] Work Phone: Blood platelet mean volumeon 07-13-2021 Platelet mean volume (Bld) [Entitic vol] 9.7 fL 6.2-12.0 [facility] Work Phone: Determination of erythrocyte mean corpuscular volume (MCV)on 07-13-2021 MCV (RBC) [Entitic vol] 94.6 fL 81-99 [facility] Work Phone: Hematocrit Auto (Bld) [Volum e fraction]on 07-13-2021 Hematocrit (Bld) [Volume fraction] 29.7 % 37-47 [facility] Work Phone: INR in Blood by Coagulation assayon 07-13-2021 INR Coag (Bld) [Relative time] 1.4 {INR} [facility] Work Phone: Laboratory - Chemistry and C hemistry - challengeon 07-13-2021 Magnesium [Mass/Vol] 2.2 mg/dL 1.6-2.6 [facility] Work Phone: Laboratory - Coagulationon 0 07-13-2021 PT Coag (PPP) [Time] 16.4 s 11.7-14.9 [facility] Work Phone: Laboratory - Hematology and Cell countson 07-13-2021 Erythrocyte distribution width (RBC) [Entitic vol] 58.6 fL 35.1-43.9 [facility] Work Phone: Erythrocyte distribution width (RBC) [Ratio] 17.2 % 11.6-14.6 [facility] Work Phone: Immature granulocytes/100 WBC (Bld) 0.600 % 0.0-0.9 [facility] Work Phone: Comment on above: IG% - Immature Granu locytes (promyelocytes, myelocytes and metamyelocytes) > 1% indicates that a LEFT SHIFT is Present. MCH (RBC) [Entitic mass] 29.9 pg 27.0-32.0 [facility] Work Phone: Nucleated RBC/100 WBC (Bld) [Ratio] 0 % 0-5 [facility] Work Phone: MCHC Auto (RBC) [Mass/Vol]on 07-13-2021 MCHC (RBC) [Mass/Vol] 31.6 g/dL 32-36 [facility] Work Phone: No Panel Informationon 07-13 Thyroid Stimulating Hormone (TSH) 3.09 uIU/mL 0.358-3.74 [facility] Work Phone: Platelets bldon 07-13-2021 Platelets (Bld) [#/Vol] 240 10*3/uL 150-450 [facility] Work Phone: Serum or plasma cholesterol in HDL measurement (mass/volume)on 07-13-2021 Cholesterol in HDL [Mass/Vol] 26 mg/dL >40 [facility] Work Phone: Comment on above: The drugs N-Acetylcy steine and Metamizole may falsely depress this assay. Reference Range HDL <40 mg/dL Low HDL Cholesterol HDL >or= 60 mg/dL High HDL Cholesterol Serum or plasma cholesterol in VLDL measurement (mass/volume)on 07-13-2021 Cholesterol in VLDL [Mass/Vol] 19 mg/dL 5-40 [facility] Work Phone: Serum or plasma low density lipoprotein (LDL) cholesterol measurement (mass/volume)on 07-13-2021 Cholesterol in LDL [Mass/Vol] 68 mg/dL 0-130 [facility] Work Phone: Serum or plasma transthyreti n measurement (mass/volume)on 07-13-2021 Prealbumin [Mass/Vol] 11.5 mg/dL 20.0-40.0 [facility] Work Phone: Whole blood hemoglobin A1c/t otal hemoglobin ratio (mass fraction)on 07-13-2021 HbA1c (Bld) [Mass fraction] 5.0 % 3.8-5.6 [facility] Work Phone: Comment on above: Normal < 5.7 % Predi abetic 5.7 - 6.4 % Diabetic >or= 6.5 % Please note range changes. HBV surface Ab IA Ql (S)on 0 07-05-2021 HBV surface Ag Ql (S) Negative Negative [facility] HEP A AB IGMon 07-05-2021 HAV IgM Ql (S) Negative Negative [facility] HEP B CORE AB IGMon 07-06-19 HBV core IgM Ql (S) Negative Negative [facility] HEP C AB IA W/CONF SCRNon HCV Ab Ql (S) Negative Negative [facility] Absolute lymphocyte counton 07-03-2021 Lymphocytes Auto (Unsp spec) [#/Vol] 0.96 10*3/uL 0.83-4.51 [facility] Work Phone: Basophil percentageon 2021 Basophil percentage 5-10 SEEN /hpf 0-5 [facility] Work Phone: Basophils/100 WBC (Bld) 0.4 % 0-1 [facility] Work Phone: Bilirubin [Mass/Vol] 2.30 mg/dL 0.20-1.00 [facility] Work Phone: Comment on above: For patients on eltr ombopag therapy, use of Dimension [place] TBIL is not recommended. Chloride [Moles/Vol] 106 mmol/L 98-107 [facility] Work Phone: Eosinophils/100 WBC (Bld) 1.4 % 0-5 [facility] Work Phone: Glucose [Mass/Vol] 114 mg/dL 74-106 [facility] Work Phone: Comment on above: Fasting Glucose resu lt from 100 to 125 mg/dL suggests IMPAIRED HOMEOSTASIS per A.D.A. criteria. Neutrophils (Bld) [#/Vol] 7.5 10*3/uL 2.0-7.7 [facility] Work Phone: Neutrophils/100 WBC (Bld) 77.6 % 47-70 [facility] Work Phone: Potassium [Moles/Vol] 4.0 mmol/L 3.5-5.1 [facility] Work Phone: Protein [Mass/Vol] 7.5 g/dL 6.4-8.2 [facility] Work Phone: Sodium [Moles/Vol] 137 mmol/L 136-145 [facility] Work Phone: WBC (Bld) [#/Vol] 9.7 10*3/uL 4.4-11.0 [facility] Work Phone: [phone] Bilirubin Test strip Ql (U)o n 07-03-2021 Bilirubin Ql (U) Negative Negative [facility] Work Phone: Blood erythrocytes count (nu mber/volume)on 07-03-2021 RBC (Bld) [#/Vol] 3.10 10*6/uL 4.2-5.4 [place] Work Phone: [phone] Blood hemoglobin measurement (mass/volume)on 07-03-2021 Hemoglobin (Bld) [Mass/Vol] 9.3 g/dL 12.0-15.0 [facility] Work Phone: Blood lymphocytes/100 leukoc yteson 07-03-2021 Lymphocytes/100 WBC (Bld) 9.9 % 19-41 [facility] Work Phone: Blood monocytes/100 leukocyt eson 07-03-2021 Monocytes/100 WBC (Bld) 10.2 % 0-10 [facility] Work Phone: Blood platelet mean volumeon 07-03-2021 Platelet mean volume (Bld) [Entitic vol] 9.2 fL 6.2-12.0 [facility] Work Phone: [phone] Determination of erythrocyte mean corpuscular volume (MCV)on 07-03-2021 MCV (RBC) [Entitic vol] 94.2 fL 81-99 [facility] Work Phone: [phone] Direct bilirubinon 2 Bilirubin.direct [Mass/Vol] 1.82 mg/dL 0.00-0.30 [facility] Work Phone: [phone] Hematocrit Auto (Bld) [Volum e fraction]on 07-03-2021 Hematocrit (Bld) [Volume fraction] 29.2 % 37-47 [facility] Work Phone: [phone] INR in Blood by Coagulation assayon 07-03-2021 INR Coag (Bld) [Relative time] 3.6 {INR} [facility] Work Phone: [phone] Ketones Test strip Ql (U)on 07-03-2021 Ketones Ql (U) Negative Negative [facility] Work Phone: [phone] Laboratory - Chemistry and C hemistry - challengeon 07-03-2021 ALP [Catalytic activity/Vol] 143 U/L 45-117 [facility] Work Phone: ALT [Catalytic activity/Vol] 49 U/L 13-56 [facility] Work Phone: [phone] CO2 [Moles/Vol] 25.0 mmol/L 21.0-32.0 [facility] Work Phone: [phone] Globulin (S) [Mass/Vol] 4.9 g/dL 2.2-4.2 [facility] Work Phone: [phone] Lipase [Catalytic activity/Vol] 260 U/L 73-393 [facility] Work Phone: [phone] Urea nitrogen/Creatinine [Mass ratio] 12.9 mg/mg 10-20 [facility] Work Phone: [phone] Laboratory - Coagulationon 0 07-03-2021 PT Coag (PPP) [Time] 35.3 s 11.7-14.9 [facility] Work Phone: [phone] Laboratory - Hematology and Cell countson 07-03-2021 Erythrocyte distribution width (RBC) [Entitic vol] 54.8 fL 35.1-43.9 [facility] Work Phone: Erythrocyte distribution width (RBC) [Ratio] 15.9 % 11.6-14.6 [facility] Work Phone: Immature granulocytes/100 WBC (Bld) 0.500 % 0.0-0.9 [facility] Work Phone: Comment on above: IG% - Immature Granu locytes (promyelocytes, myelocytes and metamyelocytes) > 1% indicates that a LEFT SHIFT is Present. MCH (RBC) [Entitic mass] 30.0 pg 27.0-32.0 [facility] Work Phone: Nucleated RBC/100 WBC (Bld) [Ratio] 0 % 0-5 [facility] Work Phone: MCHC Auto (RBC) [Mass/Vol]on 07-03-2021 MCHC (RBC) [Mass/Vol] 31.8 g/dL 32-36 [facility] Work Phone: Mucus LM Ql (Urine sed)on Mucus Ql (Urine sed) 0 SEEN /hpf [facility] Work Phone: Nitrite Test strip Ql (U)on 07-03-2021 Nitrite Ql (U) Negative Negative [facility] Work Phone: No Panel Informationon 07-03 Estimated Creatinine Clearance Calc 46.12 ml/min [facility] Work Phone: Estimated GFR (MDRD) Amer 81 mL/min >60 [facility] Work Phone: Comment on above: GFR Calc Estimated GFR (MDRD) Non-Af Amer 67 mL/min >60 [facility] Work Phone: Comment on above: Non- GFR Calc Platelets bldon 07-03-2021 Platelets (Bld) [#/Vol] 160 10*3/uL 150-450 [facility] Work Phone: Protein Test strip Ql (U)on 07-03-2021 Protein Ql (U) 15 mg/dl Negative [facility] Work Phone: Serum or plasma albumin yonatan urement (mass/volume)on 07-03-2021 Albumin [Mass/Vol] 2.6 g/dL 3.2-5.0 [facility] Work Phone: Serum or plasma calcium yonatan urement (mass/volume)on 07-03-2021 Calcium [Mass/Vol] 8.7 mg/dL 8.5-10.1 [facility] Work Phone: Serum or plasma creatinine m easurement (mass/volume)on 07-03-2021 Creatinine [Mass/Vol] 0.85 mg/dL 0.55-1.02 [facility] Work Phone: Comment on above: The validity of the calculated GFR & GFRAA in patients over 70 years has not been determined. Clinical correlation is essential. Serum or plasma urea nitroge n measurement (mass/volume)on 07-03-2021 Urea nitrogen [Mass/Vol] 11 mg/dL 7-18 [facility] Work Phone: Squamous epithelial cells de tection in urine sediment by light microscopyon 07-03-2021 Epithelial cells.squamous LM Ql (Urine sed) 0 SEEN /hpf 5-10 [facility] Work Phone: Thin prep Papanicolaou smear with manual screeningon 07-03-2021 Thin prep Papanicolaou smear with manual screening 87 U/L 15-37 [facility] Work Phone: Thin prep Papanicolaou smear with manual screening 6 5-15 [facility] Work Phone: Urine blood detectionon 06-15 RBC Ql (U) 10 /ul Negative [facility] Work Phone: RBC Ql (U) 0-5 SEEN /hpf 0-5 [facility] Work Phone: Urine clarityon 07-03-2021 Clarity (U) Clear Clear [facility] Work Phone: Urine color determinationon 07-03-2021 Color (U) Yellow Yellow [facility] Work Phone: Urine glucose detectionon Glucose Ql (U) Normal mg/dl Normal [facility] Work Phone: Urine leukocyte esterase det ection by dipstickon 07-03-2021 Leukocyte esterase Test strip Ql (U) 500 /ul Negative [facility] Work Phone: Urine pHon 07-03-2021 pH (U) 7.0 [pH] 5.0 - 8.0 [facility] Work Phone: Urine sediment bacteria coun t by microscopy (number/high power field)on 07-03-2021 Bacteria LM.HPF (Urine sed) [#/Area] 2 /[HPF] None Seen [facility] Work Phone: Urine specific gravity measu rementon 07-03-2021 Specific gravity (U) [Rel density] 1.010 1.002-1.030 [facility] Work Phone: Urobilinogen Auto test strip Ql (U)on 07-03-2021 Urobilinogen Ql (U) 1 mg/dl Normal [place] Work Phone: XR Chest PA and Lateralon IMPRESSION: Mild bibasilar atelectasis. Subtle infection could appear similar but is thought less likely. Lifeguard: GRANT Transcribe Date/Time: May 17 2021 6:05P Dictated by : SHAN KAY MD This examination was interpreted and the report reviewed and electronically signed by: SHAN KAY MD on May 17 2021 6:07PM [facility] DIVISION OF RADIOLOGY * * *Final Report* * * DATE OF EXAM: May 17 2021 5:56PM WOX 5291 - XR CHEST 2V FRONTAL/LAT / PROCEDURE REASON: Cough * * * * Physician Interpretation * * * * EXAMINATION: CHEST RADIOGRAPH (2 VIEW FRONTAL & LATERAL) CLINICAL HISTORY: Cough MQ: XC2_6 EXAM DATE/TIME: 05/17/2021 5:56 PM COMPARISON: 05/05/2020. RESULT: Lines, tubes, and devices: Right chest port tip projects over the SVC. Lungs and pleura: Mild bibasilar pulmonary opacities are present. There is no pleural effusion or pneumothorax. Cardiomediastinal silhouette: Stable cardiomediastinal silhouette. Bones and soft tissues: Surgical clips are seen in the right axilla. No acute osseous abnormality. DIVISION OF RADIOLOGY Provider, Sj Fatou [facility] - 05/17/2021 * * *Final Report* * * DATE OF EXAM: May 17 2021 5:56PM WOX 5291 - XR CHEST 2V FRONTAL/LAT / PROCEDURE REASON: Cough * * * * Physician Interpretation * * * * EXAMINATION: CHEST RADIOGRAPH (2 VIEW FRONTAL & LATERAL) CLINICAL HISTORY: Cough MQ: XC2_6 EXAM DATE/TIME: 05/17/2021 5:56 PM COMPARISON: 05/05/2020. RESULT: Lines, tubes, and devices: Right chest port tip projects over the SVC. Lungs and pleura: Mild bibasilar pulmonary opacities are present. There is no pleural effusion or pneumothorax. Cardiomediastinal silhouette: Stable cardiomediastinal silhouette. Bones and soft tissues: Surgical clips are seen in the right axilla. No acute osseous abnormality. IMPRESSION IMPRESSION: Mild bibasilar atelectasis. Subtle infection could appear similar but is thought less likely. Lifeguard: GRANT Transcribe Date/Time: May 17 2021 6:05P Dictated by : SHAN KAY MD This examination was interpreted and the report reviewed and electronically signed by: SHAN KAY MD on May 17 2021 6:07PM EST [facility] Radiology Study observation (narrative) [facility] XR Chest PA and LateralOrder ed By: [facility] Provider on 05-17-2021 [facility] Basic Metabolic Panlon 01-14 Anion gap [Moles/Vol] 7 mmol/L Low 9-[address] [facility] Comment on above: Performed By: #### M G1, BMP, CBC ####[facility] Ztywdvbvhu8329 [phone] Calcium [Mass/Vol] 8.5 mg/dL Normal 8.5-10.2 [facility] Comment on above: Performed By: #### M G1, BMP, CBC ####[facility] [address] [place] [address] Chloride [Moles/Vol] 110 mmol/L High 97-105 [facility] Comment on above: Performed By: #### M G1, BMP, CBC ####[facility] [address] [place] [id number] CO2 [Moles/Vol] 23 mmol/L Normal 22-30 [facility] Comment on above: Performed By: #### M G1, BMP, CBC ####[facility] [address] [place] [address] Creatinine [Mass/Vol] 0.85 mg/dL Normal 0.58-0.[address] [facility] Comment on above: Performed By: #### M G1, BMP, CBC ####[facility] [address] [place] [address] eGFR- Amer. >60 Normal [facility] Comment on above: Performed By: #### M G1, BMP, CBC ####[facility] [address] [place] [address] eGFR-All Other Races >60 Normal [facility] Comment on above: Result Comment: eGFR (Estimated GFR) Units of measure: [...] eGFR may not accurately reflect actual GFR. Performed By: #### M G1, BMP, CBC ####[facility] [address] [place] [phone] Glucose [Mass/Vol] 94 mg/dL Normal 74-99 [facility] Comment on above: Result Comment: The [place] Diabetes Association (ADA) provides guidance for cutoff values for fasting glucose and random glucose. The ADA defines fasting as no [...] Standards of Medical Care in Diabetes 2016, [place] Diabetes Association. Diabetes Care. 2016.39(Suppl 1). Performed By: #### M BMP, CBC ####[facility] [address] [place] [address] Potassium [Moles/Vol] 3.8 mmol/L Normal 3.7-5.[address] [facility] Comment on above: Performed By: #### M , BMP, CBC ####[place] [address] Sodium [Moles/Vol] 140 mmol/L Normal 136-144 [facility] Comment on above: Performed By: #### M , BMP, CBC ####[place] [address] Urea nitrogen [Mass/Vol] 10 mg/dL Normal 7-21 [facility] Comment on above: Performed By: #### M , BMP, CBC ####[place] [address] CBCon 01-14-2021 Absolute nRBC <0.01 Normal <0.01 [facility] Comment on above: Performed By: #### M , BMP, CBC ####[place] [address] Erythrocyte distribution width (RBC) [Ratio] 16.5 % High 11.5-15.0 [facility] Comment on above: Performed By: #### M , BMP, CBC ####[place] [address] Hematocrit (Bld) [Volume fraction] 25.5 % Low 36.0-46.0 [facility] Comment on above: Performed By: #### M , BMP, CBC ####[place] [address] Hemoglobin (Bld) [Mass/Vol] 8.4 g/dL Low 11.5-15.5 [facility] Comment on above: Performed By: #### M G1, BMP, CBC ####[facility] [address] [place] [phone] MCH 34.7 pG High 26.0-34.0 [facility] Comment on above: Performed By: #### Violet Vanna BMP, CBC ####[facility] [phone] MCHC (RBC) [Mass/Vol] 32.9 g/dL Normal 30.5-36.[address] [facility] Comment on above: Performed By: #### M STEPHAN Prabhakar, CBC ####[facility] [address] [place] [phone] MCV (RBC) [Entitic vol] 105.4 fL High 80.0-100.0 [facility] Comment on above: Performed By: #### Violet STEPHAN Prabhakar, CBC ####[facility] [address] [place] [phone] Platelet mean volume (Bld) [Entitic vol] 9.8 fL Normal 9.0-12.7 [facility] Comment on above: Performed By: #### Violet STEPHAN Prabhakar, CBC ####[facility] Z[address]il3843 [phone] Platelets (Bld) [#/Vol] 109 10*3/uL Low 150-400 [facility] Comment on above: Performed By: #### M STEPHAN Prabhakar, CBC ####[facility] [address] [place] [phone] RBC (Bld) [#/Vol] 2.42 10*6/uL Low 3.90-5.20 [facility] Comment on above: Performed By: #### M STEPHAN Prabhakar, CBC ####[facility] [address]0624 [phone] WBC (Bld) [#/Vol] 5.89 10*3/uL Normal 3.70-11.00 [facility] Comment on above: Performed By: #### Violet STEPHAN Prabhakar, CBC ####[facility] [address] [place] [phone] CNDSon 01-14-2021 CNDS HNO ID: [id number] Author: Wendy Bonilla DO Service: Hospital Medicine Author Type: Physician Type: Discharge Summary Filed: 01/25/2021 7:14 PM Note Text: DISCHARGE SUMMARY PATIENT NAME: Christian Landrum ADMISSION DATE: 01/12/2021 DISCHARGE DATE: 01/14/2021 ATTENDING PHYSICIAN: Wendy Bonilla DO Code Status: Not on file Highest Readmission Risk Score: 22 The 30 day readmissions risk score is derived from an internally validated risk model which evaluates patient level characteristics, utilization history, medication orders and lab results up until the day of discharge. Patients with a score of 40 or above are considered highest risk for readmission. Specific patient level drivers will be listed at the bottom of the summary. CONSULTING TEAMS DURING HOSPITALIZATION: Treatment Team: Attending Provider: Wendy Bonilla DO Consulting: Johnny Turk MD Primary Service: [place] [address] REASON FOR HOSPITALIZATION: Rectal Bleed DIAGNOSIS: Principal Problem (Resolved): GI bleed POA: Yes Active Problems: Atrial fibrillation, chronic (HCC) POA: Yes Essential hypertension, benign POA: Yes Polymyalgia rheumatica (HCC) POA: Yes Obesity, Class I, BMI 30-34.9 POA: Unknown Liver cirrhosis (HCC) POA: Unknown Endometrial thickening on ultrasound POA: Unknown Resolved Problems: Acute blood loss anemia POA: Unknown UTI (urinary tract infection) POA: Unknown OPERATIONS DURING HOSPITALIZATION: None PROCEDURES DURING HOSPITALIZATION: No procedures performed HOSPITAL COURSE: ?Ms. Landrum?is an 85-year-old female presenting today with about 5 or 6 episodes of black/tarry stool which have improved and formed since Friday when she had polypectomy with colonoscopy by Dr. Turk. ?Today, she started having dysuria and urinary frequency, so she presented for further evaluation with concern for UTI as well. ?She has not had nausea or severe abdominal discomfort. ?No high fevers or chills.her daughter states that her mom was not told to stop her coumadin prior to the procedure due to the type of biopsy they were doing. Her INR was high yesterday at 3.2 so her daughter held her coumadin. She is being admitted for monitoring as her hemoglobin did drop from 11.4 to 9.2 over a month time. A CT scan of the A/p was done in the ED and showed acute cystitis, cirrhotic liver morphology, abnormal endometrial thickening. She was admitted for further evaluation and management. She was observed overnight. There were no further bloody stools. Hg remained around 8.4. She was seen by Dr. Turk. Her coumadin will be held for one week and she will follow up with him in the office. She was given one dose of IV iron and advised to take iron pills for 4-6 weeks. Pathology results from the colonoscopy were reviewed with the patient and her daughter and will be followed by Dr. Turk. CT scan results were discussed. She did report dysuria and was started on macrobid. Culture was pending at discharge. Liver appearance was discussed. It was noted that she had a recent Hep B core ab positive. Labs were placed as previously ordered by her line assigner to follow up on this and pending at time of discharge. She was provided with referral and number for [facility] and advised to call for an appointment. A Transvaginal ultrasound was obtained and confirmed endometrial thickening of 1.8cm This was reviewed and the patient will follow up with her REMEDIAL PROJECT MANAGER. She was discharged home in stable condition. Patient and daughter declined PT eval and felt she could be managed with family support at home. ADDENDUM in response to documentation query: 01/25/21 Post polypectomy rectal bleed in setting of therapeutic INR and coumadin use. Clinically unable to determine if rectal bleed was only due to coumadin use but likely associated with eachother. Transitions of Care Critical Issues: LAB MONITORING NEEDED: cbc in 4-6 weeks. SPECIALIST FOLLOW-UP: [facility], Follow up REMEDIAL PROJECT MANAGER for endometrial thickening. Follow up Dr. Turk one week HEREDIA MEDICATION CHANGES: Hold coumadin one week LABS AND PROCEDURES PENDING AT DISCHARGE: Urine culture Hepatitis serologies PATIENT CONDITION AT DISCHARGE: Stable DISCHARGE DISPOSITION: Home/Self Care Discharge Physical Exam: VITAL SIGNS: BP 105/52 Pulse 69 Temp 36.8 ?C (98.2 ?F) Resp 16 Ht 167.6 cm (5' 6) Wt 81.4 kg (179 lb 7.3 oz) SpO2 97% BMI 28.96 kg/m? GENERAL: Alert, no distress, cooperative LUNGS: Lungs clear to auscultation, Good diaphragmatic excursion CARDIAC: Normal S1 and S2; no rubs, murmurs, or gallops ABDOMEN: Abdomen soft, non-tender, BS normal, EXTREMITIES: Extremities normal, no deformities, edema, clubbing or skin discoloration. INFORMATION PROVIDED TO PATIENT: see discharge instructions WOUND/SURGICAL SITE CARE: None DIET: Resume pre-hospital diet ACTIVITY: Resume pre-hospital ac (more content not included)... [facility] Magnesiumon 01-14-2021 Magnesium [Mass/Vol] 2.0 mg/dL Normal 1.7-2.3 [facility] Comment on above: Performed By: #### M G1, BMP, CBC ####[facility] P[address]ft[address]cnb2961 [phone] NURSING PROGon 01-14-2021 NURSING PROG HNO ID: [id number] Author: Albania Perez RN Service: ? Author Type: Registered Nurse Type: Nursing Progress Note Filed: 01/14/2021 5:01 PM Note Text: Nursing Progress Note Patient Name: Christian Landrum Patient Location: [place] [address] [address] Daily Note:[address] [place], [place] home instructions given-verbalized understanding. This note was completed by: Albania Perez [facility] ALLIED HEALTHon 01-13-2021 [facility]ALTH HNO ID: [id number] Author: Margy Walker RDMS Service: Radiology Author Type: Manager Photo Type: Allied Health Filed: 01/13/2021 3:05 PM Note Text: Radiology Service Progress Note PATIENT NAME: Christian Landrum DATE OF SERVICE: January 13, 2021 TIME: 3:05 PM PATIENT IDENTITY VERIFICATION COMPLETED USING TWO (2) IDENTIFIERS: Name and Date of confirmed by patient verbally and Name and Date of confirmed by identification band. FALL SCREENING: Has the patient had 2 falls in the last year or 1 fall with injury or currently using an Ambulatory Assistive Device (Walker, Cane, Wheelchair, Crutches, etc.)? Inpatient: Screened on floor PATIENT GENDER DATA: Female. status: : No status: NO. PATIENT RELEVANT IMPLANT DATA REVIEWED: Not Applicable RADIOLOGY DEPARTMENT: Ultrasound PERIPHERAL IV DATA: Not applicable SIGNED BY: Margy Walker RDMS January 13, 2021 3:05 PM Normal [facility] Basic Metabolic Panlon 01-13 Anion gap [Moles/Vol] 8 mmol/L Low 9-[address] [facility] Comment on above: Performed By: #### P T, BMP, CBC ####[facility] [address] [place] [address] Calcium [Mass/Vol] 8.2 mg/dL Low 8.5-10.2 [facility] Comment on above: Performed By: #### P T, BMP, CBC ####[facility] [address] [place] [address] Chloride [Moles/Vol] 106 mmol/L High 97-105 [facility] Comment on above: Performed By: #### P T, BMP, CBC ####[facility] [address] [place] [address] CO2 [Moles/Vol] 20 mmol/L Low -30 [facility] Comment on above: Performed By: #### P T, BMP, CBC ####[facility] [address] [place] [address] Creatinine [Mass/Vol] 0.74 mg/dL Normal 0.58-0.[address] [facility] Comment on above: Performed By: #### P T, BMP, CBC ####[facility] [address] [place] [address] eGFR- Amer. >60 [facility] Comment on above: Performed By: #### P T, BMP, CBC ####[facility] [address] [place] [address] eGFR-All Other Races >60 Normal [facility] Comment on above: Result Comment: eGFR (Estimated GFR) Units of measure: [...] eGFR may not accurately reflect actual GFR. Performed By: #### STEPHAN Diaz, CBC ####[facility] [address] [place] [address] Glucose [Mass/Vol] 179 mg/dL High 74-99 [facility] Comment on above: Result Comment: The [place] Diabetes Association (ADA) provides guidance for cutoff values for fasting glucose and random glucose. The ADA defines fasting as no [...] Standards of Medical Care in Diabetes 2016, [place] Diabetes Association. Diabetes Care. 2016.39(Suppl 1). Performed By: #### STEPHAN Diaz, CBC ####[place] [address] Potassium [Moles/Vol] 3.8 mmol/L Normal 3.7-5.[address] [facility] Comment on above: Performed By: #### STEPHAN Diaz, CBC ####[place] [address] Sodium [Moles/Vol] 134 mmol/L Low 136-144 [facility] Comment on above: Performed By: #### STEPHAN Diaz, CBC ####[place] [address] Urea nitrogen [Mass/Vol] 15 mg/dL Normal 7-21 [facility] Comment on above: Performed By: #### STEPHAN Diaz, CBC ####[place] [address] CBCon 01-13-2021 Absolute nRBC <0.01 Normal <0.01 [facility] Comment on above: Performed By: #### P STEPHAN Mcgowan, CBC ####[facility] [address] [place] [phone] Erythrocyte distribution width (RBC) [Ratio] 16.6 % High 11.5-15.0 [facility] Comment on above: Performed By: #### P T, BMP, CBC ####[facility] [address] [place] [address] Hematocrit (Bld) [Volume fraction] 24.8 % Low 36.0-46.0 [facility] Comment on above: Performed By: #### P T, BMP, CBC ####[facility] [address] [place] [address] Hemoglobin (Bld) [Mass/Vol] 8.4 g/dL Low 11.5-15.5 [facility] Comment on above: Performed By: #### P T, BMP, CBC ####[facility] [address] [place] [address] MCH 35.9 pG High 26.0-34.0 [facility] Comment on above: Performed By: #### P T, BMP, CBC ####[facility] [address] [place] [address] MCHC (RBC) [Mass/Vol] 33.9 g/dL Normal 30.5-36.[address] [facility] Comment on above: Performed By: #### P T, BMP, CBC ####[facility] [address] [place] [address] MCV (RBC) [Entitic vol] 106.0 fL High 80.0-100.0 [facility] Comment on above: Performed By: #### P T, BMP, CBC ####[facility] [address] [place] [address] Platelet mean volume (Bld) [Entitic vol] 10.2 fL Normal 9.0-12.7 [facility] Comment on above: Performed By: #### P T, BMP, CBC ####[facility] [address] [place] [address] Platelets (Bld) [#/Vol] 104 10*3/uL Low 150-400 [facility] Comment on above: Performed By: #### P T, BMP, CBC ####[facility] [address] [place] [address] RBC (Bld) [#/Vol] 2.34 10*6/uL Low 3.90-5.20 [facility] Comment on above: Performed By: #### P T, BMP, CBC ####[facility] [address] [place] [phone] WBC (Bld) [#/Vol] 6.11 10*3/uL Normal 3.70-11.00 [facility] Comment on above: Performed By: #### P T, BMP, CBC ####[facility] Kux[address]rpj9174 [phone] CONSULTon 01-13-2021 CONSULT HNO ID: [id number] Author: Johnny Turk MD Service: General Surgery Author Type: Physician Type: Consults Filed: 01/13/2021 9:35 AM Note Text: SURGERY INITIAL CONSULT NOTE SERVICE DATE: 01/13/2021 SERVICE TIME: 7:10 REASON FOR CONSULT: Post polypectomy bleed REQUESTING PHYSICIAN: Dr. Shepherd PRIMARY CARE PHYSICIAN: Galina Iraheta MD Subjective Ms. Landrum is a 85 year old female who presents for with dysuria and urinary frequency concerning for UTI. The patient also noted black tarry stools post polypectomy. The patient is well-known to me. Christian is a patient I am following for previous sigmoid colon resection for diverticulitis with a recurring episode of diverticulitis. ? I performed a laparoscopic sigmoid resection with colovesical fistula repair on August 08, 2009. The patient had a loop of sigmoid colon densely adherent to her bladder. As this was taken down I was uncertain whether was a true colovesical fistula but removed a quarter-sized piece of bladder with the specimen and reported that in 2 layers. The pathology demonstrated chronic diverticular changes. I did not perform mobilization of the splenic flexure at that time. ? Postoperatively the patient was doing well but then approximately a year later had a followup episode of diverticulitis. On CT scan this was listed as occurring in the mid descending the sigmoid region which was actually on CT scan noted to be up towards the anterior superior iliac spine. For almost 6 mo she was well but then developed LLQ pain and discomfort. She had a CT scan which demonstrated recurrent Diverticulitis in Jan 2010 and was tx with Cipro and Flagyl which she did not tolerate well as she had fatigue. Episode resolved. Had Colonoscopy by and had patent anastomosis. 1 Week ago developed pain again and CT suggestive of recurrent diverticulitis again. 2-3BM's qd. I had the patient evaluated by Dr. Negrete/colorectal surgery. He agreed with conservative management in the interim. The patient was also somewhat reluctant to consider repeat resection. ? She is again experiencing episodes of left-sided abdominal pain and CT scan was consistent with mild diverticulitis in the same region. The question now is repeat resection for recurrent diverticulitis. ? On recent CT scan. The area of inflammation is still up towards the anterior superior iliac spine. Her anastomosis which demonstrates no inflammation and no inflammation near the bladder is low. We discussed the possibility of a more extensive mobilization in order to bring the colon back down to what would be a relatively low anastomosis for repeat procedure She had 2 small polyps in the cecum a sending colon which were removed in 2008. She had an followup colonoscopy demonstrating no polyps in 2011. We discussed a 3 year followup for colonoscopy. She has actually been without any symptoms for over a year now and is reluctant to consider colonoscopy. ? She was evaluated by 2 different colorectal surgeons. Given the fact that her symptoms were somewhat sporadic and responded well to oral antibiotics it was elected not to perform repeat colectomy. Christian notes a personal history of colon polyps and presents for surveillance colonoscopy based on sessile tubular adenoma with focal high-grade dysplasia removed during colonoscopy by Dr. Mckee 11/15/2019 with 1 year follow-up recommended Patient was noted to have mild anemia on recent laboratory studies through PCP as well as heme positive stool. ? Patient's past medical history in addition to above is significant for asthma, atrial fibrillation, coronary artery disease, hypertension, breast cancer, hypercholesterolemia, skin cancer. ? I performed upper and lower endoscopy on January 09, 2021. Upper endoscopy demonstrated: Normal examined jejunum. - Duodenitis. - Gastritis. Biopsied. - Mildly severe reflux esophagitis. Biopsied. Lower endoscopy demonstrated: - Six medium polyps in the transverse colon and in the ascending colon, removed with a cold snare. Resected and retrieved. Clip (MR conditional) was ? placed. - Patent end-to-end colo-rectal anastomosis, characterized by healthy appearing mucosa. - Diverticulosis in the descending colon. - The examination was otherwise normal. Pathology demonstrated: FINAL DIAGNOSIS 1. Stomach, antrum, biopsy (A) ?Gastric antral mucosa with no diagnostic abnormality. - There is no evidence of active Helicobacter pylori infection. 2. Esophagus, distal, biopsy (B) ?Cardio-oxyntic mucosa with no diagnostic abnormality. 3. Colon, transverse, polyp, biopsy (C) ?Tubular adenoma. 4. Colon, ascending, polyp, biopsy (D) ?Tubulovillous adenoma with high-grade dysplasia. FUNCTIONAL STATUS: Independent PAST MEDICAL HISTORY Diagnosis Date - Abdominal pain, left lower quadrant long standing - Arrhythmia - Arthritis (more content not included)... Normal [facility] Hep B Core Ab, IgMon 021 Hep B Core Ab, IgM Negative Normal Negative [facility] Comment on above: Performed By: #### 5 7021-8 #### [facility] CLIA [id number] [address] Hep B Core Ab,Totalon 2020 Hep B Core Ab,Total Positive Critically abnormal Negative [facility] Comment on above: Result Comment: Resu lt rechecked. Performed By: #### 5 7021-8 #### [facility] CLIA [id number] [address] Hepat.B Vir Ult Qton 021 HBV DNA Ultra Not detected Normal [facility] Comment on above: Result Comment: Refe rence Range: Negative for HBVDNA The linear range of this assay is 10 to 1,000,000,000 IU/mL. Performed By: #### 5 7021-8 #### [facility] CLIA [id number] [address] Hepatitis Be Antibodon 01-13 Hepatitis Be Antibod Negative Normal Negative [facility] Comment on above: Result Comment: This test should only be used in patients with a previously known and/or concurrent positive HBsAg result. Along with HBeAg test, Hepatitis B e antibody test is used for monitoring the natural history of Hepatitis B virus infection and prognostication. Clinical correlation is required. Performed By: #### 5 7021-8 #### [facility] CLIA [id number] [address] Hepatitis Be Antigenon 01-13 Hepatitis Be Antigen Negative Normal Negative [facility] Comment on above: Performed By: #### 5 7021-8 #### [facility] CLIA [id number] [address] Protimeon 01-13-2021 PT INR 2.5 High 0.9-1.3 [facility] Comment on above: Result Comment: Maricruz min K Antagonist (VKA) Therapeutic Range: INR 2 to 3 (Target INR of 2.5) Note: For patients treated with VKA drugs, such as warfarin, the [place] [employer]icians 2012 Guideline recommends a therapeutic INR range of 2 to 3 (target INR of 2.5). This recommendation includes high-risk patients with antiphospholipid syndrome with previous arterial or venous thromboembolism, current-generation mechanical or bioprosthetic aortic heart valve replacement. Note: Patients with mechanical aortic valve replacement and additional risk factors for thromboembolic events (atrial fibrillation, previous thromboembolism, LV dysfunction, hypercoagulable conditions) or an older generation mechanical AVR (i.e., ball in-Cage) or any mechanical MVR should have a INR therapeutic range of 2.5 to 3.5 (target INR of 3). Lisa BARAJAS, et al. Chest 2012, 141:7S-47S Geri RA, et al. JAC 2017, 70: 252-289 Performed By: #### P STEPHAN Mcgowan, CBC ####[facility] T[address]blcds3819 [address] PT Sec 25.8 sec High 9.7-13.0 [facility] Comment on above: Performed By: #### STEPHAN Diaz, CBC ####[facility] Vaim[address]jcl3960 [address]51[facility] F[facility]ABD LT Don 01-13-2021 FEMALE PELVIS TRANSABD LTD * * *Final Report* * * DATE OF EXAM: Jan 13 2021 3:06PM MDU 1059 - US FEMALE PELVIS TRANSABD LTD / PROCEDURE REASON: Vaginal bleeding abnormal, endometrium abnormal or focal abnormality suspected o * * * * Physician Interpretation * * * * EXAMINATION: TRANSVAGINAL AND LIMITED TRANSABDOMINAL PELVIC ULTRASOUND CLINICAL HISTORY: Abnormal endometrium noted on recent CT scan. Postmenopausal. Remote bilateral oophorectomy. TECHNIQUE: Sonography of the pelvis was performed by transvaginal and transabdominal (limited) techniques. Images were obtained and stored in a permanent archive. MQ: UFP_1 COMPARISON: Comparison is made to prior CT dated 12 January 2021 and a prior pelvic ultrasound dated 04/18/2020 RESULT: Uterus size: 8.0 x 5.7 x 3.9 cm -Orientation: Anteverted -Myometrium: Normal sonographic appearance. No focal myometrial abnormality -Endometrial echo complex: Not well visualized due to significant foraminal reverberation on the transvaginal images. Best seen transabdominally is heterogeneity with a thickness of 1.8 cm. -Cervix: normal Ovaries: Surgically absent. No obvious adnexal masses. Pelvis free fluid: Trace simple free fluid is seen within the cul-de-sac. IMPRESSION: Heterogeneous endometrium measuring 1.8 cm transabdominally. It is poorly visualized transvaginally. Trace free fluid Unremarkable adnexa. Lifeguard: GRANT Transcribe Date/Time: Jan 13 2021 6:02P Dictated by : NATA HANEY MD This examination was interpreted and the report reviewed and electronically signed by: NATA HANEY MD on Jan 13 2021 6:07PM EST [id number] [facility] US FEMALE PELVIS TRANSVAGon 01-13-2021 US FEMALE PELVIS TRANSVAG * * *Final Report* * * DATE OF EXAM: Jan 13 2021 3:06PM JAVON 1060 - US FEMALE PELVIS TRANSVAG / PROCEDURE REASON: Endometrial hyperplasia * * * * Physician Interpretation * * * * EXAMINATION: TRANSVAGINAL AND LIMITED TRANSABDOMINAL PELVIC ULTRASOUND CLINICAL HISTORY: Abnormal endometrium noted on recent CT scan. Postmenopausal. Remote bilateral oophorectomy. TECHNIQUE: Sonography of the pelvis was performed by transvaginal and transabdominal (limited) techniques. Images were obtained and stored in a permanent archive. MQ: UFP_1 COMPARISON: Comparison is made to prior CT dated 12 January 2021 and a prior pelvic ultrasound dated 04/18/2020 RESULT: Uterus size: 8.0 x 5.7 x 3.9 cm -Orientation: Anteverted -Myometrium: Normal sonographic appearance. No focal myometrial abnormality -Endometrial echo complex: Not well visualized due to significant foraminal reverberation on the transvaginal images. Best seen transabdominally is heterogeneity with a thickness of 1.8 cm. -Cervix: normal Ovaries: Surgically absent. No obvious adnexal masses. Pelvis free fluid: Trace simple free fluid is seen within the cul-de-sac. IMPRESSION: Heterogeneous endometrium measuring 1.8 cm transabdominally. It is poorly visualized transvaginally. Trace free fluid Unremarkable adnexa. Lifeguard: PSYCHIATRIC Transcribe Date/Time: Jan 13 2021 6:02P Dictated by : NATA HANEY MD This examination was interpreted and the report reviewed and electronically signed by: NATA HANEY MD on Jan 13 2021 6:07PM EST [id number] Normal [facility] Urine Cultureon 01-13-2021 Bacteria identified Cx Nom (U) Sp. Request/Comment: - Specimen received in preservative Culture Result - <10,000 CFU/ml Lactose positive gram negative bacilli --> ABNORMAL ALERT Insignificant colony count. No further workup. --> ABNORMAL ALERT <10,000 CFU/ml Normal urogenital cy Critically abnormal [facility] Comment on above: Performed By: #### U RCUL ####[facility] [address] [place], [place] [phone] [place], [place] [phone] APTTon 01-12-2021 aPTT Coag (Bld) [Time] 112.0 s High 23.0-32.4 [facility] Comment on above: Result Comment: Unfr actionated Heparin Therapeutic Ranges: Standard Heparin Nomogram: 53 to 78 seconds (anti-Xa level of 0.3 to 0.7 U/ml) Low Dose/ACS Nomogram: 49 to 67 seconds (anti-Xa level of 0.2 to 0.5 U/ml) Stroke Treatment Nomogram: 49 to 67 seconds (anti-Xa level of 0.2 to 0.5 U/ml) Note: The APTT therapeutic range has been determined for the current lot of laboratory APTT reagent in use throughout the [facility]. Sample checked for a clot. No call per procedure. 01/12/2021 1541 Performed By: #### C MP, CBCDIF, PTT, MG1, PT ####[facility] [address] [place] [address] CBC and Differentialon 01-12 Abs Baso 0.05 k/uL Normal <0.11 [facility] Comment on above: Performed By: #### C MP, CBCDIF, PTT, MG1, PT ####[place] [address] Abs [place] 0.86 k/uL Normal <0.87 [facility] Comment on above: Performed By: #### C MP, CBCDIF, PTT, MG1, PT ####[place] [address] Abs Neut 5.89 k/uL Normal 1.45-7.50 [facility] Comment on above: Performed By: #### C MP, CBCDIF, PTT, MG1, PT ####[place] [address] Absolute nRBC <0.01 Normal <0.01 [facility] Comment on above: Performed By: #### C MP, CBCDIF, PTT, MG1, PT ####[place] [address] Basophils/100 WBC (Bld) 0.6 % [facility] Comment on above: Performed By: #### C MP, CBCDIF, PTT, MG1, PT ####[place] [address] DTYPE Auto Diff Normal [facility] Comment on above: Performed By: #### C MP, CBCDIF, PTT, MG1, PT ####[place] [address] Eosinophils (Bld) [#/Vol] 0.09 10*3/uL Normal <0.46 [facility] Comment on above: Performed By: #### C MP, CBCDIF, PTT, MG1, PT ####[place] [address] Eosinophils/100 WBC (Bld) 1.0 % [facility] Comment on above: Performed By: #### C MP, CBCDIF, PTT, MG1, PT ####[place] [phone] Erythrocyte distribution width (RBC) [Ratio] 16.4 % High 11.5-15.0 [facility] Comment on above: Performed By: #### C MP, CBCDIF, PTT, MG1, PT ####[facility] [address] [place] [address] Hematocrit (Bld) [Volume fraction] 27.4 % Low 36.0-46.0 [facility] Comment on above: Performed By: #### C MP, CBCDIF, PTT, MG1, PT ####[facility] [address] [place] [address] Hemoglobin (Bld) [Mass/Vol] 9.2 g/dL Low 11.5-15.5 [facility] Comment on above: Performed By: #### C MP, CBCDIF, PTT, MG1, PT ####[place] [address] Lymphocytes (Bld) [#/Vol] 1.89 10*3/uL Normal 1.00-4.00 [facility] Comment on above: Performed By: #### C MP, CBCDIF, PTT, MG1, PT ####[facility] [address] [place] [address] Lymphocytes/100 WBC (Bld) 21.5 % Normal [facility] Comment on above: Performed By: #### C MP, CBCDIF, PTT, MG1, PT ####[facility] [address] [place] [address] MCH 35.1 pG High 26.0-34.0 [facility] Comment on above: Performed By: #### C MP, CBCDIF, PTT, MG1, PT ####[facility] [address] [place] [address] MCHC (RBC) [Mass/Vol] 33.6 g/dL Normal 30.5-36.[address] [facility] Comment on above: Performed By: #### C MP, CBCDIF, PTT, MG1, PT ####[facility] [address] [place] [address] MCV (RBC) [Entitic vol] 104.6 fL High 80.0-100.0 [facility] Comment on above: Performed By: #### C MP, CBCDIF, PTT, MG1, PT ####[facility] [address] [place] [address] Monocytes/100 WBC (Bld) 9.8 % Normal [facility] Comment on above: Performed By: #### C MP, CBCDIF, PTT, MG1, PT ####[facility] [address] [place] [address] Neutrophils/100 WBC (Bld) 67.1 % Normal [facility] Comment on above: Performed By: #### C MP, CBCDIF, PTT, MG1, PT ####[place] [address] NRBCs 0.0 /100 WBC Normal 0 [facility] Comment on above: Performed By: #### C MP, CBCDIF, PTT, MG1, PT ####[place] [address] Platelet mean volume (Bld) [Entitic vol] 10.6 fL Normal 9.0-12.7 [facility] Comment on above: Performed By: #### C MP, CBCDIF, PTT, MG1, PT ####[place] [address] Platelets (Bld) [#/Vol] 126 10*3/uL Low 150-400 [facility] Comment on above: Result Comment: No c lot detected. Performed By: #### C MP, CBCDIF, PTT, MG1, PT ####[place] [address] RBC (Bld) [#/Vol] 2.62 10*6/uL Low 3.90-5.20 [facility] Comment on above: Performed By: #### C MP, CBCDIF, PTT, MG1, PT ####[place] [address] WBC (Bld) [#/Vol] 8.78 10*3/uL Normal 3.70-11.00 [facility] Comment on above: Performed By: #### C MP, CBCDIF, PTT, MG1, PT ####[facility] [address] [place] [phone] CT ABD/PEL W IVCONon 021 CT ABD/PEL W IVCON * * *Final Report* * * DATE OF EXAM: Jan 12 2021 4:21PM [facility] 0530 - CT ABD/PEL W IVCON / PROCEDURE REASON: Infection, abdomen-pelvis * * * * Physician Interpretation * * * * EXAMINATION: CT ABDOMEN AND PELVIS WITH IV CONTRAST CLINICAL HISTORY: 85 years old Female with Infection, abdomen-pelvis. Review of electronic medical record states: Recent colonoscopy 01/09/2021 and polypectomy. Presenting with black/tarry stools which have improved since colonoscopy. Also noted dysuria and urinary frequency concerning for UTI. TECHNIQUE: CT of the abdomen and pelvis was performed using standard technique, scanning from just above the dome of the diaphragm to the symphysis pubis. MQ: CTAP_3 Contrast: IV: 150 ml of Omnipaque 300 Oral: None. CT Radiation dose: Integrated Dose-length product (DLP) for this visit = 689 mGy*cm. CT Dose Reduction Employed: Automated exposure control (AEC) COMPARISON: CT abdomen pelvis 01/02/2018 RESULT: Liver: Cirrhotic liver morphology with heterogeneous attenuation of the liver parenchyma. No discrete lesion identified on this single phase examination. Biliary: No bile duct dilation. Large calcified stones within the gallbladder. Spleen: No mass. No splenomegaly. Pancreas: No mass or duct dilation. Adrenals: No mass. Kidneys: No mass, calculus or hydronephrosis. GI tract: No dilation or wall thickening. Small hiatal hernia. History of appendectomy. Colonic diverticulosis without diverticulitis. Colorectal anastomosis. Lymph nodes: No abdominal or pelvic lymphadenopathy. Mesentery/Peritoneum: No ascites or mass. Retroperitoneum: No mass. Vasculature: The celiac axis and SMA are patent. The portal vein and branches, splenic vein, SMV, and hepatic veins are patent. Arterial atherosclerotic disease without aneurysm. Pelvis: No mass, ascites or fluid collection. Circumferential bladder wall thickening more than expected for underdistention. Abnormal endometrial thickening to 12 mm (4:63). Bones/Soft Tissues: Osteopenia. Multilevel thoracolumbar spondylosis and bilateral hip osteoarthritis. Small fat-containing periumbilical hernia. Lower thorax: Subsegmental atelectasis/scarring in the lower lobes and reticulation/groundglass changes secondary to mild fibrosis. Coronary artery atherosclerotic calcification and/or stent in the RIGHT coronary circulation. Emissions Engineer (topogram) images: No additional findings. IMPRESSION: Acute cystitis. Cirrhotic liver morphology. Cholelithiasis. Abnormal endometrial thickening to 12 mm in this postmenopausal female. Recommend further evaluation with a female pelvic ultrasound on a nonemergent basis. Acuity: Actionable Findings: Female reproductive tract (pelvis, adnexa) Routing code: WH_1 Recommendation: US FEMALE PELVIS NON-OB NON TORSION ([id number]) Time Frame: at the discretion of the clinical team. Lifeguard: PSCYanelis Transcribe Date/Time: Jan 12 2021 4:44P Dictated by : VANESA PRICE DO This examination was interpreted and the report reviewed and electronically signed by: VANESA PRICE DO on Jan 12 2021 5:01PM EST [id number] Normal [facility] Comp Metabolic Panelon 01-12 Albumin [Mass/Vol] 3.4 g/dL Low 3.9-4.9 [facility] Comment on above: Performed By: #### C MP, CBCDIF, PTT, MG1, PT ####[facility] Jak[address]w0447 [address] ALP [Catalytic activity/Vol] 52 U/L Normal 34-123 [facility] Comment on above: Performed By: #### C MP, CBCDIF, PTT, MG1, PT ####[facility] N[address]xya[address]3 [address] ALT [Catalytic activity/Vol] 25 U/L Normal 7-38 [facility] Comment on above: Performed By: #### C MP, CBCDIF, PTT, MG1, PT ####[facility] [address] [place] [phone] Anion gap [Moles/Vol] 12 mmol/L Normal 9-[address] [facility] Comment on above: Performed By: #### C MP, CBCDIF, PTT, MG1, PT ####[facility] [address] [place] [phone] AST [Catalytic activity/Vol] 59 U/L High 13-35 [facility] Comment on above: Performed By: #### C MP, CBCDIF, PTT, MG1, PT ####[facility] [address] [place] [address] Bilirubin [Mass/Vol] 1.0 mg/dL Normal 0.2-1.3 [facility] Comment on above: Performed By: #### C MP, CBCDIF, PTT, MG1, PT ####[facility] [address] [place] [address] Calcium [Mass/Vol] 8.9 mg/dL Normal 8.5-10.2 [facility] Comment on above: Performed By: #### C MP, CBCDIF, PTT, MG1, PT ####[facility] [address] [place] [address] Chloride [Moles/Vol] 107 mmol/L High 97-105 [facility] Comment on above: Performed By: #### C MP, CBCDIF, PTT, MG1, PT ####[facility] [address] [place] [address] CO2 [Moles/Vol] 21 mmol/L Low 22-30 [facility] Comment on above: Performed By: #### C MP, CBCDIF, PTT, MG1, PT ####[facility] [address] [place] [address] Creatinine [Mass/Vol] 0.67 mg/dL Normal 0.58-0.[address] [facility] Comment on above: Performed By: #### C MP, CBCDIF, PTT, MG1, PT ####[facility] [address] [place] [address] eGFR- Amer. >60 Normal [facility] Comment on above: Performed By: #### C MP, CBCDIF, PTT, MG1, PT ####[facility] [address] [place] [address] eGFR-All Other Races >60 Normal [facility] Comment on above: Result Comment: eGFR (Estimated GFR) Units of measure: [...] eGFR may not accurately reflect actual GFR. Performed By: #### C MP, CBCDIF, PTT, MG1, PT ####[facility] [address] [place] [address] Glucose [Mass/Vol] 92 mg/dL Normal 74-99 [facility] Comment on above: Result Comment: The [place] Diabetes Association (ADA) provides guidance for cutoff values for fasting glucose and random glucose. The ADA defines fasting as no [...] Standards of Medical Care in Diabetes 2016, [place] Diabetes Association. Diabetes Care. 2016.39(Suppl 1). Performed By: #### C MP, CBCDIF, PTT, MG1, PT ####[facility] [address] [place] [address] Potassium [Moles/Vol] 3.8 mmol/L Normal 3.7-5.[address] [facility] Comment on above: Performed By: #### C MP, CBCDIF, PTT, MG1, PT ####[facility] [address] [place], [place] [phone] Protein [Mass/Vol] 6.0 g/dL Low 6.3-8.0 [facility] Comment on above: Performed By: #### C MP, CBCDIF, PTT, MG1, PT ####[facility] [address] [place] [phone] Sodium [Moles/Vol] 140 mmol/L Normal 136-144 [facility] Comment on above: Performed By: #### C MP, CBCDIF, PTT, MG1, PT ####[facility] [address]17 [address] Urea nitrogen [Mass/Vol] 19 mg/dL Normal 10-04 [facility] Comment on above: Performed By: #### C MP, CBCDIF, PTT, MG1, PT ####[facility] [address] [place] [phone] Confirm Blood Typeon 021 ABO/RH(D) Positive [facility] Comment on above: Performed By: #### 5 7021-8 #### [facility] CLIA [id number] [address] [place] [address] [facility] ED NOTEon 01-12-2021 ED NOTE HNO ID: [id number] Author: Anusha Pabon RN Service: ? Author Type: Registered Nurse Type: ED Notes Filed: 01/12/2021 5:50 PM Note Text: Report called to Marbella bruno. [facility] ED NOTE HNO ID: [id number] Author: Anusha Pabon RN Service: ? Author Type: Registered Nurse Type: ED Notes Filed: 01/12/2021 5:38 PM Note Text: 10 min heads up given [facility] ED NOTE HNO ID: [id number] Author: Xavi Hicks, Miguel Angel Service: ? Author Type: Rn Transitional Care and Skimmer Scoop Operator Type: ED Notes Filed: 01/12/2021 12:05 PM Note Text: Complains of black stools since Friday S/P colonoscopy this past Friday. [facility] ED PROV NOTEon 01-12-2021 ED PROV NOTE HNO ID: [id number] Author: Juan Covarrubias MD Service: ? Author Type: Physician Type: ED Provider Notes Filed: 01/12/2021 2:49 PM Note Text: ED Provider Note Patient Name: Christian Landrum SERVICE DATE: 01/12/21 History Patient presents with: Rectal Bleeding UTI HPI Ms. Landrum is an 85-year-old female presenting today with about 5 or 6 episodes of black/tarry stool which have improved and formed since Friday when she had polypectomy with colonoscopy by Dr. Turk. Today, she started having dysuria and urinary frequency, so she presented for further evaluation with concern for UTI as well. She has not had nausea or severe abdominal discomfort. No high fevers or chills. PAST MEDICAL HISTORY Diagnosis Date - Abdominal pain, left lower quadrant long standing - Arrhythmia - Arthritis - Asthma - Atrial fibrillation (HCC) 2009 - Atrophic vaginitis - Benign neoplasm of colon - C. 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 Tachycardia 2-05/2009 - History of recurrent UTIs - HX OF BREAST CANCER 06/2007 breast cancer left - Hypertension - Irritable bowel syndrome - Lumbago - Mitral valve disorders(424.0) and irregular heartbeat on occasion stress related - Mixed stress and urge urinary incontinence - Osteoarthrosis, unspecified whether generalized or localized, other specified sites 07/22 vit D 41 - Other diseases of pharynx, not elsewhere classified(478.29) - Other extrapyramidal disease and abnormal movement disorder - PMH - PAST MEDICAL HISTORY OF benign mass on liver - PMR (polymyalgia rheumatica) (HCC) 2012 - Pure hypercholesterolemia - Snoring - 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 - Symptomatic menopausal or female climacteric states IN HER 50S 05/22 NORMAL BONE DENSITY - Syncope - Thyroid disease - 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 - Unspecified hemorrhoids without mention of complication Hemorrhoids - Unspecified sleep apnea use CPAP SEVERAL YRS - UTI (lower urinary tract infection) 2012 frequent PAST SURGICAL HISTORY Procedure Laterality Date - ABDOMINAL SURGERY HX - APPENDECTOMY 1982 ovarian cyst at same time-one ovary removed right - APPENDECTOMY - BREAST BIOPSY W/STEREOTACTIC GUIDANCE 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, DCIS, LCIS - BREAST LEFT FINE NEEDLE ASPIRATION left breast - BREAST SURGERY HX - BX OF BREAST; INCISIONAL left breast twice - BX OF BREAST; NEEDLE CORE 06/24/2007 left breast - BX/REMV,LYMPH NODE,DEEP AXILL Right - COLECTOMY PART W/CECOSTOMY 08/08/2009 sigmoid colectomy - COLON SURGERY HX - COLONOSCOP W/ OR W/O BRSH SPEC 04/19/2003 Colonoscopy - COLONOSCOP W/ OR W/O BRSH SPEC 11/03/2014 Colonoscopy - COLONOSCOP W/ OR W/O BRSH SPEC 11/15/2019 Colonoscopy - COLONOSCOP W/ OR W/O BRSH SPEC 01/09/2021 - COLONOSCOPY W/BX 03/23/2010 Clean anastamosis at 15cm few right and lef sided diverticula - COLONS W/REM POLYP HT BX 04/27/2007 tubular adenoma - COLONS W/REM POLYP HT BX 09/28/2008 small polyp in cecum and 40cm, diverticulosis - EGD W/O OR W/BRUSH/WASH 01/09/2021 - INCISE FINGER TENDON SHEATH Right 06/28/2020 Right ring and little trigger finger releases - INCISE FINGER TENDON SHEATH Left 09/28/2020 Left ring trigger finger release - MASTECTOMY, SIMPLE, COMPLETE 08/04/2007 left breast with SLND/ALND - MASTECTOMY, SIMPLE, COMPLETE Right 08/29/2015 right mastectomy with SLND - PAST SURGICAL HISTORY OF bilat CTR, had endometrial bx 2004 - PAST SURGICAL HISTORY OF 12/2011 removal of lesion of Lt eyelid - PAST SURGICAL HISTORY OF 1982 Rt ovary removed - PAST SURGICAL HISTORY OF 01/03/2017 breast surgery - REMOVAL OF OVARY/TUBE(S) 08/08/2009 left Salpingo-oophorectomy - REMOVAL OF TONSILS,<12 Y/O 5 Tonsillectomy - REMOVE TONSILS/ADENOIDS,<12 Y/O - SHAV LESIO NEC,HAND,SCALP 6-10MM 09/2017 squamous cell - SKIN BIOPSY HX - TONSILLECTOMY HX - TUNNEL VAD W SUB Q PORT >=5 10/06/2007 Right Subclavian FAMILY HISTORY Problem Relation Age of Onset - other ( age 59 [place]) Mother hypertension and TB - other (pancreatic cancer) Father - Breast Cancer Sister diagnosed at age 53 - Breast Cancer Maternal Aunt diagnosed postmenopausal - Breast Cancer Other 2 maternal first cousins - Breast Cancer Other maternal cousins - Breast Cancer Other maternal great grandmother - other (sinus cavity CA) Son - other (myeloma) Brother - other (healthy) Sister - other (ovarian cancer) Sister paternal grandmother S (more content not included)... Normal [facility] Expedited [id number] 01-13-20 SARS-CoV-2 (COVID-19) RNA DEMARCUS+probe Ql (Unsp spec) UPPER RESPIRATORY TRACT SWAB Normal [facility] Comment on above: Performed By: #### E XCOVD #### [facility] [address] [facility] [phone] SARS-CoV-2 (COVID-19) RNA DEMARCUS+probe Ql (Unsp spec) Negative for COVID19 (SARS CoV2) by RT-PCR or equivalent method. Normal Negative for COVID19 (SARS CoV2) by RT-PCR or equivalent method. [facility] Comment on above: Result Comment: This test has been authorized by FDA under an Emergency Use Authorization (EUA). Performed By: #### E XCOVD #### [facility] [address] [facility] [phone] HISTORY PHYSICALon HISTORY PHYSICAL HNO ID: [id number] Author: Selma Shepherd DO Service: Hospital Medicine Author Type: Physician Type: HANDP Filed: 01/12/2021 8:56 PM Note Text: HOSPITAL MEDICINE HISTORY AND PHYSICAL PCP: Galina Iraheta MD NIGHT AND WEEKEND COVERAGE: [employer] [place] COVER[employer]: Days: [phone], please page attending physician. Nights: [phone], please page [facility] Night coverage pager [phone]. SUBJECTIVE Chief Complaint: Rectal bleeding HPI: Ms. Landrum is an 85-year-old female presenting today with about 5 or 6 episodes of black/tarry stool which have improved and formed since Friday when she had polypectomy with colonoscopy by Dr. Turk. Today, she started having dysuria and urinary frequency, so she presented for further evaluation with concern for UTI as well. She has not had nausea or severe abdominal discomfort. No high fevers or chills.her daughter states that her mom was not told to stop her coumadin prior to the procedure due to the type of biopsy they were doing. Her INR was high yesterday at 3.2 so her daughter held her coumadin. She is being admitted for monitoring as her hemoglobin did drop from 11.4 to 9.2 over a month time. I did start her on ivf and clears for now. She is having some mild lower abdominal tenderness PAST MEDICAL HISTORY Diagnosis Date - Abdominal pain, left lower quadrant long standing - Arrhythmia - Arthritis - Asthma - Atrial fibrillation (HCC) 2009 - Atrophic vaginitis - Benign neoplasm of colon - C. 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 Tachycardia 2-05/2009 - History of recurrent UTIs - HX OF BREAST CANCER 06/2007 breast cancer left - Hypertension - Irritable bowel syndrome - Lumbago - Mitral valve disorders(424.0) and irregular heartbeat on occasion stress related - Mixed stress and urge urinary incontinence - Osteoarthrosis, unspecified whether generalized or localized, other specified sites 07/22 vit D 41 - Other diseases of pharynx, not elsewhere classified(478.29) - Other extrapyramidal disease and abnormal movement disorder - PMH - PAST MEDICAL HISTORY OF benign mass on liver - PMR (polymyalgia rheumatica) (HCC) 2012 - Pure hypercholesterolemia - Snoring - 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 - Symptomatic menopausal or female climacteric states IN HER 50S 05/22 NORMAL BONE DENSITY - Syncope - Thyroid disease - 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 - Unspecified hemorrhoids without mention of complication Hemorrhoids - Unspecified sleep apnea use CPAP SEVERAL YRS - UTI (lower urinary tract infection) 2012 frequent PAST SURGICAL HISTORY Procedure Laterality Date - ABDOMINAL SURGERY HX - APPENDECTOMY 1983 ovarian cyst at same time-one ovary removed right - APPENDECTOMY - BREAST BIOPSY W/STEREOTACTIC GUIDANCE 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, DCIS, LCIS - BREAST LEFT FINE NEEDLE ASPIRATION left breast - BREAST SURGERY HX - BX OF BREAST; INCISIONAL left breast twice - BX OF BREAST; NEEDLE CORE 06/24/2007 left breast - BX/REMV,LYMPH NODE,DEEP AXILL Right - COLECTOMY PART W/CECOSTOMY 08/08/2009 sigmoid colectomy - COLON SURGERY HX - COLONOSCOP W/ OR W/O BRSH SPEC 04/19/2003 Colonoscopy - COLONOSCOP W/ OR W/O BRSH SPEC 11/03/2014 Colonoscopy - COLONOSCOP W/ OR W/O BRSH SPEC 11/15/2019 Colonoscopy - COLONOSCOP W/ OR W/O BRSH SPEC 01/09/2021 - COLONOSCOPY W/BX 03/23/2010 Clean anastamosis at 15cm few right and lef sided diverticula - COLONS W/REM POLYP HT BX 04/27/2007 tubular adenoma - COLONS W/REM POLYP HT BX 09/28/2008 small polyp in cecum and 40cm, diverticulosis - EGD W/O OR W/BRUSH/WASH 01/09/2021 - INCISE FINGER TENDON SHEATH Right 06/28/2020 Right ring and little trigger finger releases - INCISE FINGER TENDON SHEATH Left 09/28/2020 Left ring trigger finger release - MASTECTOMY, SIMPLE, COMPLETE 08/04/2007 left breast with SLND/ALND - MASTECTOMY, SIMPLE, COMPLETE Right 08/29/2015 right mastectomy with SLND - PAST SURGICAL HISTORY OF bilat CTR, had endometrial bx 2004 - PAST SURGICAL HISTORY OF 12/2011 removal of lesion of Lt eyelid - PAST SURGICAL HISTORY OF 1982 Rt ovary removed - PAST SURGICAL HISTORY OF 01/03/2017 breast surgery - REMOVAL OF OVARY/TUBE(S) 08/08/2009 left Salpingo-oophorectomy - REMOVAL OF TONSILS,<12 Y/O 5 Tonsillectomy - REMOVE TONSILS/ADENOIDS,<12 Y/O - SHAV LESIO NEC,HAND,SCALP 6-10MM 09/2017 squamous cell - SKIN BIOPSY HX - TONSILLECTOMY HX - TUNNEL VAD W SUB Q PORT >=5 10/06/2007 Right (more content not included)... Normal [facility] Magnesiumon 01-12-2021 Magnesium [Mass/Vol] 2.0 mg/dL Normal 1.7-2.3 [facility] Comment on above: Performed By: #### C MP, CBCDIF, PTT, MG1, PT ####[facility] [address] [place] [phone] NT Pro BNPon 01-12-2021 PRO B Natr Peptide 116 pg/mL Normal <450 [facility] Comment on above: Performed By: #### N TBNP ####[facility] [address] [place] [phone] NURSING PROGon 01-12-2021 NURSING PROG HNO ID: [id number] Author: Albania Perez RN Service: ? Author Type: Registered Nurse Type: Nursing Progress Note Filed: 01/12/2021 6:33 PM Note Text: Nursing Progress Note Patient Name: Christian Landrum Patient Location: [facility]/EC-[id number] Daily Note:1830-received pt from ED,no acute distress noted,on RA,oriented to the room,call light within reach. This note was completed by: Albania Bess [facility] Protimeon 01-12-2021 PT INR 2.9 High 0.9-1.3 [facility] Comment on above: Result Comment: Maricruz min K Antagonist (VKA) Therapeutic Range: INR 2 to 3 (Target INR of 2.5) Note: For patients treated with VKA drugs, such as warfarin, the [employer] [place] [employer] 2012 Guideline recommends a therapeutic INR range of 2 to 3 (target INR of 2.5). This recommendation includes high-risk patients with antiphospholipid syndrome with previous arterial or venous thromboembolism, current-generation mechanical or bioprosthetic aortic heart valve replacement. Note: Patients with mechanical aortic valve replacement and additional risk factors for thromboembolic events (atrial fibrillation, previous thromboembolism, LV dysfunction, hypercoagulable conditions) or an older generation mechanical AVR (i.e., ball in-Cage) or any mechanical MVR should have a INR therapeutic range of 2.5 to 3.5 (target INR of 3). Lisa GH, et al. Chest 2012, 141:7S-47S Geri RA et al. [facility] 2017, 70: 252-289 Performed By: #### C MP, CBCDIF, PTT, MG1, PT ####[facility] [address] [place] [phone] PT Sec 28.7 sec High 9.7-13.0 [facility] Comment on above: Performed By: #### C MP, CBCDIF, PTT, MG1, PT ####[facility] [address] [place] [phone] Troponin Ton 01-12-2021 Troponin T <0.010 Normal 0.000-0.029 [facility] Comment on above: Performed By: #### T NT ####[facility] [address] [place] [address] Type and Screenon 01-12-2021 ABO/RH(D) Positive Normal [facility] Comment on above: Performed By: #### 5 7021-8 #### [facility] CLIA [id number] [address] [place], [place] [id number] [place] [address] Urinalysison 01-12-2021 Bilirubin, Urine Negative Normal Negative [facility] Comment on above: Performed By: #### U A, UAMIC ####[facility] [address] [place] [address] Clarity (U) Clear Normal Clear [facility] Comment on above: Performed By: #### U A, UAMIC ####[facility] [address] [place] [address] Color (U) Yellow Normal Yellow [facility] Comment on above: Performed By: #### U A, UAMIC ####[facility] [address] [place] [address] Glucose Ql (U) Negative Normal Negative [facility] Comment on above: Performed By: #### U A, UAMIC ####[facility] [address] [place] [address] Hemoglobin/Blood,Ur 2+ Critically abnormal Negative [facility] Comment on above: Performed By: #### U A, UAMIC ####[facility] [address] [place] [address] Ketones Ql (U) Negative Normal Negative [facility] Comment on above: Performed By: #### U A, UAMIC ####[facility] [address] [place] [address] Leukest 2+ Critically abnormal Negative [facility] Comment on above: Performed By: #### U A, UAMIC ####[facility] [address] [place] [address] Nitrite Ql (U) Negative Normal Negative [facility] Comment on above: Performed By: #### U A, UAMIC ####[facility] [address] [place] [address] pH (U) 6.5 [pH] Normal 5.0-8.0 [facility] Comment on above: Performed By: #### U A UAMIC ####[facility] [address] [place] [address] Protein, Urine Negative Normal Negative [facility] Comment on above: Performed By: #### U A UAMIC ####[facility] [address] [place] [address] Specific [place], Ur 1.010 Normal 1.005-1.[address] [facility] Comment on above: Performed By: #### U A UAMIC ####[facility] [address] [place] [address] Urobilinogen Qn (U) 0.2 {Valentín'U}/dL Normal 0.2-1.0 [facility] Comment on above: Performed By: #### U A UAMIC ####[facility] [address] [place] [address] Urine Microscopic (FOR LAB U SE ONLY)on 01-12-2021 Cast SEE COMMENT Normal 0 [facility] Comment on above: Result Comment: 0 Performed By: #### U A UAMIC ####[facility] [address] [place] [address] Epithelial cells LM Ql (Urine sed) SEE COMMENT Normal [facility] Comment on above: Result Comment: 0-5 Squamous Epithelial Cells Performed By: #### U A UAMIC ####[facility] [address] [place] [address] RBC 5-10 Critically abnormal 0-3 [facility] Comment on above: Performed By: #### U A UAMIC ####[facility] [address] [place] [address] WBC 5-10 Critically abnormal 0-5 [facility] Comment on above: Performed By: #### U A UAMIC ####[facility] [address] [place] [address] NM CARDIAC PERF STRESS/PHARM on 01-10-2021 NM CARDIAC PERF STRESS/PHARM * * *Final Report* * * DATE OF EXAM: Jan 10 2021 11:30AM HEATHER 0006 - NM CARDIAC PERF STRESS/PHARM / PROCEDURE REASON: multiple diagnoses * * * * Physician Interpretation * * * * Stress Bridge Toll Collector Report: [facility] Date of service: 01/10/2021 9:33:53 AM Supervising physician: Amari Menon MD PATIENT: Name: MRS. CHRISTIAN LANDRUM Age: 85 years Gender: F The supervising physician was present during the stress procedure. Final PATIENT: Name: MRS. CHRISTIAN LANDRUM Age: 85 years Gender: F CONCLUSIONS: 1. SPECT Perfusion Study: Normal. 2. There is no scintigraphic evidence for inducible ischemia. 3. No evidence of scarred myocardium. 4. Left ventricle is normal in size. The left ventricle systolic function is normal. 5. This is a low risk scan. Gated Stress FBP Gated Rest FBP LVEF % 65 67 Prior Study Comparison Prior nuclear cardiology exam was performed on 04/20/09. There is no change. Nuclear Med Report:1-Day Tc-Tetrofosmin Gated SPECT Myocardial Perfusion with Regadenoson Stress: Myocardial perfusion imaging was performed at rest 30 minutes following the IV injection of Tc-99m tetrofosmin. The patient received 0.4 mg of regadenoson, via rapid IV push, immediately followed by Tc-99m tetrofosmin IV. Gated post stress tomographic imaging was performed 30 to 60 minutes later. See administered doses below. [facility] Date of service: 01/10/2021 9:33:53 AM Indication: Dyspnea and ECG abnormal, intermediate prob, uninterpretable, cannot exercise Interpreting physician: Mainor Boswell MD Height: 167.64 cm BSA: 2.00 m? Weight: 86.18 kg BMI: 30.7 kg/m? Imaging Protocol Limitation Reason Breast attenuation. Exam Type: Rest Stress Radiopharm: Tc-99m Tetrofosmin Tc-99m Tetrofosmin Dosage(mCi): 12.1 31.2 Atten Correction: not performed not performed Stress Agent: Regadenoson 0.4mg Supply provided from [facility] Resting Blood Press: 117/52 mmHg Image Quality The overall study imaging quality was deemed to be good. The following technical issues were noted: Breast attenuation. FINDINGS: Left Ventricle Wall Motion: Stress IR:3D - All segments are normal. Rest IR:3D - Gated Stress FBP - Gated Rest FBP - Reversibility - Stress IR:3D Stress IR:3D Gated Stress FBP Gated Rest FBP LVEF: 65 % 67 % ED Volume: 66 ml 69 ml ES Volume: 23 ml 23 ml TID: 1.03 Perfusion Findings Stress IR:3D - Summed Score=0 All segments demonstrate normal perfusion. Rest IR:3D - Summed Score=0 All segments demonstrate normal perfusion. Stress IR:3D Rest IR:3D Summed Score=0 Summed Score=0 LEFT VENTRICLE The left ventricle is normal in size. Left ventricular systolic function is normal. Right Ventricle The right ventricle is unseen or not interrogated. Stress Test Findings: There is no scintigraphic evidence for inducible ischemia. There is no evidence of scarring. The left ventricular cavity size is unchanged with stress. Final Stress ECG Report: [facility] Date of service: 01/10/2021 9:33:53 AM Ordering physician: CECILIO IBARRA Specialist: Vira Odonnell Gas Shovel Operator: Lisa Lemus Stress ECG interpreting physician: Amari Menon MD PATIENT: Name: MRS. CHRISTIAN LANDRUM Age: 85 years Gender: F Height: 167.64 cm BSA: 2.00 m? Weight: 86.18 kg BMI: 30.7 kg/m? Stress ECG Conclusion: Conclusion: Normal Stress ECG Summary: The patient's resting heart rate was 73 bpm and blood pressure was 117/52 mmHg. The test was terminated due to end of protocol. Other symptoms during the test included SOB. The maximum heart rate was 82 bpm, which is 61% of the predicted heart rate for age. Peak blood pressure was 125/48 mmHg. The double product achieved was [address]. Indication: Dyspnea on exertion Medical History and Comorbidities: Sleep Apnea, PAT or SVT, Atrial Fibrillation, Asthma, Coronary Artery Disease and Syncope / Near-Syncope, hypertension, hyper-cholesterol and family history of coronary artery disease. Medications: Last Used LEVOXYL LEXAPRO WARFARIN LASIX METOPROLOL LIPITOR CALCIUM Resting ECG: Normal Sinus Rhythm Symptoms at rest: No symptoms Pharamcologic Protocol: Regadenoson Stress Exercise Table: +----+--+---+---+ Step HR SYS GABRIELLA +----+--+---+---+ 1 76 +----+--+---+---+ 2 82 117 48 +----+--+---+---+ 3 81 125 48 +----+--+---+---+ 4 82 115 51 +----+--+---+---+ 5 80 113 53 +----+--+---+---+ 6 78 118 51 +----+--+---+---+ +-----+ (more content not included)... [facility] 01-09-2021 [facility] Telephone ([facility]) CHRISTIAN LANDRUM ([id number]) 1935 F Date Time Provider Department 01/09/21 LISA LEMUS During your visit today, we recorded the following information about you: Lisa Lemus RN 01/09/2021 12:29 PM Signed Left message regarding reminder for stress test tomorrow and given instructions. Allergies As of Date: 01/09/2021 Noted Allergy Reaction CLINDAMYCIN 03/05/2016 14 - [...] skin reaction with skin tears ARTHROTEC 50 (DICLOFENAC-MISOPROS*2007 6 - Diarrhea BLEPHAMIDE (SULFACETAMIDE-PREDNIS*06/2010 3 - Cough DITROPAN (OXYBUTYNIN) 06/20/2020 5 - Intolerance Comments: Severe dryness of nasal passages, bleeding from the nose, constipation and sneezing FLAGYL (METRONIDAZOLE HCL) 02/17/2010 1 - Mental Status Change 12 - Shortness of Breath Comments: Anxiety FLEXERIL (CYCLOBENZAPRINE) 05/17/2004 15 - Contraindication-Medical Menon* Comments: urinary urgency HCTZ (HYDROCHLOROTHIAZIDE) 10/07/2005 1 - Mental Status Change Comments: felt strange NAPROXEN SODIUM 02/12/2010 14 - Other: See Comments Comments: GI Bleeding PAXIL (PAROXETINE) 05/17/2004 15 - Contraindication-Medical Menon* Comments: urinary urgency SULFA (SULFONAMIDE ANTIBIOTICS) 12/26/2015 16 - Unknown ZESTRIL (LISINOPRIL) 07/08/2007 Date Reviewed: 01/09/2021 Reviewed by: Galina Lucas RN - Fully Assessed Reason for Visit: Reminder Call [[id number]] Prescriptions as of 01/09/2021 - omeprazole (PRILOSEC) 20 mg capsule Take 2 capsules by mouth once daily. - methotrexate 2.5 mg tablet Take 4 tablets by mouth one time a week. - levothyroxine (LEVOXYL) 25 mcg tablet Take 1 tablet by mouth once daily. Take on empty stomach. For Thyroid - folic acid 1 mg tablet Take 3 tablets by mouth once daily. - escitalopram oxalate (LEXAPRO) 10 mg tablet Take 1 tablet by mouth once daily. - warfarin (COUMADIN) 1 mg tablet 2 mg every Tu; 1 mg all other days - estradiol (ESTRACE) 0.01 % (0.1 mg/gram) vaginal cream 1 gm every other day. - furosemide (LASIX) 20 mg tablet Take 1 tablet by mouth once daily for 5 days. - Cranberry 400 mg cap Take 2 capsules by mouth once daily. - gabapentin (NEURONTIN) 600 mg tablet Take 0.5 tablets by mouth once daily. - Zinc 50 mg tab Take by mouth once daily. - ascorbic acid, vitamin C, (VITAMIN C) 500 mg tablet Take 500 mg by mouth once daily. - cholecalciferol (VITAMIN D-3) 50 mcg (2,000 unit) tablet Take 2,000 Units by mouth once daily. - metoprolol tartrate, short acting, (LOPRESSOR) 50 mg tablet TAKE ONE TABLET EVERY MORNING AND HALF TABLET EVERY EVENING - atorvastatin (LIPITOR) 10 mg tablet TAKE 1 TABLET BY MOUTH EVERY DAY - glucosamine/msm/chondroitin A (DTXUCLOHKSU-QLYDIG-QEO ORAL) Take 1 capsule by mouth once daily. - 0.9 % sodium chloride (0.9% NACL) Access implanted vascular access device (IVAD) as needed for flush, blood draw or treatment. Flush IVAD with 10-20 mL NS every 4 weeks and PRN when IVAD not in use. - heparin 100 unit/mL injection Access implanted vascular access device (IVAD) as needed for flush, blood draw or treatment. Before de-accessing port, flush with 10-20ml normal saline and follow with 5 mL heparin (100 units/mL) (if no heparin allergy). De-access port on treatment completion. - TURMERIC ROOT EXTRACT ORAL Take 580 mg by mouth once daily. - biotin 5,000 mcg subl - diclofenac sodium (VOLTAREN) 1 % topical gel Apply 4 g to affected area as needed. - triamcinolone acetonide (NASACORT AQ) 55 mcg nasal inhaler Use 2 Sprays in the nose once daily. - Melatonin 5 mg tab Take 10 mg by mouth daily at bedtime. - docusate sodium (COLACE) 100 mg capsule Take 1 capsule by mouth twice daily as needed for Constipation. - calcium citrate-vitamin D3 (CITRACAL+D) 315-200 mg-unit tab Take 1 tablet by mouth once daily. - METHYLCELLULOSE (CITRUCEL ORAL) Take 2 tablets by mouth once daily. - cetirizine (ZYRTEC) 10 mg tablet Take 1 tablet by mouth once daily. - MULTIVITAMIN TAB Take one(1) tablet daily BY MOUTH. - TYLENOL EX-STR 500 MG CAPLET Take two(2) tablets every four(4) to six(6) hours as needed. Facility-Administered Medications as of 01/09/2021 - fentaNYL 50 mcg/mL 25-100 mcg injection (SUBLIMAZE) - midazolam 1-5 mg injection (VERSED) - diphenhydrAMINE 12.5-50 mg injection (BENADRYL) - benzocaine 20% 1 [place] (TOPEX) Meds Comments as of 12/27/2016: Problem List As Of Date 01/09 (more content not included)... Normal [facility] XR Chest PA and Lateralon IMPRESSION: Mild bibasilar atelectasis/scarring. Lifeguard: GRANT Transcribe Date/Time: Nov 27 2020 4:34P Dictated by : DUC ZHONG MD This examination was interpreted and the report reviewed and electronically signed by: DUC ZHONG MD on Nov 27 2020 4:35PM [facility] DIVISION OF RADIOLOGY * * *Final Report* * * DATE OF EXAM: Nov 27 2020 4:29PM WOX 5291 - XR CHEST 2V FRONTAL/LAT / PROCEDURE REASON: Fever, unspecified fever cause * * * * Physician Interpretation * * * * EXAMINATION: CHEST RADIOGRAPH (2 VIEW FRONTAL & LATERAL) CLINICAL HISTORY: Fever, unspecified fever cause MQ: XC2_6 EXAM DATE/TIME: 11/27/2020 4:29 PM COMPARISON: 05/05/2020 RESULT: Lines, tubes, and devices: Stable RIGHT subclavian chest port. Lungs and pleura: No focal consolidation, significant pleural effusion or pneumothorax. Mild bibasilar atelectasis/scarring. Cardiomediastinal silhouette: Stable Bones and soft tissues: No acute osseous abnormalities identified. Degenerative changes are present in the thoracic spine. DIVISION OF RADIOLOGY Provider, [facility] Fatou [facility] - 11/27/2020 * * *Final Report* * * DATE OF EXAM: Nov 27 2020 4:29PM WOX 5291 - XR CHEST 2V FRONTAL/LAT / PROCEDURE REASON: Fever, unspecified fever cause * * * * Physician Interpretation * * * * EXAMINATION: CHEST RADIOGRAPH (2 VIEW FRONTAL & LATERAL) CLINICAL HISTORY: Fever, unspecified fever cause MQ: XC2_6 EXAM DATE/TIME: 11/27/2020 4:29 PM COMPARISON: 05/05/2020 RESULT: Lines, tubes, and devices: Stable RIGHT subclavian chest port. Lungs and pleura: No focal consolidation, significant pleural effusion or pneumothorax. Mild bibasilar atelectasis/scarring. Cardiomediastinal silhouette: Stable Bones and soft tissues: No acute osseous abnormalities identified. Degenerative changes are present in the thoracic spine. IMPRESSION IMPRESSION: Mild bibasilar atelectasis/scarring. Lifeguard: PSCB Transcribe Date/Time: Nov 27 2020 4:34P Dictated by : DUC ZHONG MD This examination was interpreted and the report reviewed and electronically signed by: DUC ZHONG MD on Nov 27 2020 4:35PM EST [facility] Radiology Study observation (narrative) [facility] XR Chest PA and LateralOrder ed By: [facility] Provider on 11-27-2020 [facility] XR Chest PA and Lateralon IMPRESSION: No acute radiographic abnormality. Lifeguard: PSC Transcribe Date/Time: May 05 2020 3:09P Dictated by : ALEJO GORDON MD This examination was interpreted and the report reviewed and electronically signed by: ALEJO GORDON MD on May 05 2020 3:20PM EST DIVISION OF RADIOLOGY * * *Final Report* * * DATE OF EXAM: May 05 2020 3:07PM WOX 5291 - XR CHEST 2V FRONTAL/LAT / PROCEDURE REASON: Chronic cough * * * * Physician Interpretation * * * * EXAMINATION: CHEST RADIOGRAPH (2 VIEW FRONTAL & LATERAL) CLINICAL HISTORY: Chronic cough MQ: XC2_6 EXAM DATE/TIME: 05/05/2020 3:07 PM COMPARISON: 05/24/2016 chest x-ray RESULT: Lines, tubes, and devices: Mediport in the SVC Lungs and pleura: No consolidation. No lung mass. No pleural effusion. No pneumothorax. Cardiomediastinal silhouette: Normal cardiomediastinal silhouette. Bones and soft tissues: Unremarkable. DIVISION OF RADIOLOGY Provider, [facility] - 05/05/2020 * * *Final Report* * * DATE OF EXAM: May 05 2020 3:07PM WOX 5291 - XR CHEST 2V FRONTAL/LAT / PROCEDURE REASON: Chronic cough * * * * Physician Interpretation * * * * EXAMINATION: CHEST RADIOGRAPH (2 VIEW FRONTAL & LATERAL) CLINICAL HISTORY: Chronic cough MQ: XC2_6 EXAM DATE/TIME: 05/05/2020 3:07 PM COMPARISON: 05/24/2016 chest x-ray RESULT: Lines, tubes, and devices: Mediport in the SVC Lungs and pleura: No consolidation. No lung mass. No pleural effusion. No pneumothorax. Cardiomediastinal silhouette: Normal cardiomediastinal silhouette. Bones and soft tissues: Unremarkable. IMPRESSION IMPRESSION: No acute radiographic abnormality. Lifeguard: GRANT Transcribe Date/Time: May 05 2020 3:09P Dictated by : ALEJO GORDON MD This examination was interpreted and the report reviewed and electronically signed by: ALEJO GORDON MD on May 05 2020 3:20PM EST [facility] Radiology Study observation (narrative) [facility] XR Chest PA and LateralOrder ed By: [facility] Provider on 05-05-2020 [facility] BD DXA - AXIAL SKELETONon BD DXA - AXIAL SKELETON Final Report DATE OF EXAM: Oct 20 2019 11:23AM LDX 0804 - BD DXA - AXIAL SKELETON / PROCEDURE REASON: multiple diagnoses Physician Interpretation EXAM TITLE: BONE MINERAL DENSITOMETRY COMPARISON:None CLINICAL INDICATION/HISTORY: Postmenopausal TECHNIQUE: DXA [employer] Advance v,11.4 examination was performed on the lumbar spine and hip. FINDINGS: 1. L1, L3, L4 BMD is 1.5 g/cm2 which is 131% of peak bone mass compared to young normals which is 3 standard deviations relative to the mean of young normals (T-score). According to the World Health Organization criteria, this would be classified as normal . 2. Left hip BMD is 1.2 g/cm2 which is 118% of peak bone mass compared to young normals which is 1.4 standard deviations relative to the mean of young normals (T-score). According to the World Health Organization criteria, this would be classified as normal . 3. Left femoral neck BMD is 1.1 g/cm2 which is 102% of peak bone mass compared to young normals which is 0.2 standard deviations relative to the mean of young normals (T-score). According to the World Health Organization criteria, this would be classified as normal . IMPRESSION: Bone density is within normal limits. RELATIVE FRACTURE RISK TABLE NOTE: This table applies to post-menopausal females. T-score Fracture risk 0 average risk for normal 40 year old -1 2 times the normal -2 4 times the normal -3 8 times the normal etc. GENERAL RECOMMENDATIONS FOR PREVENTION OF BONE LOSS: 1. 1200 mg - 1500 mg calcium per day if no history of renal calculi for adults 50 years and over. 2. 800 - 1000 International Units of vitamin D3 per day if no history of renal calculi for adults 50 years and over. 3. Weight bearing exercise 4. Discontinue smoking 5. Avoid excessive use of caffeine, soft drinks, and alcoholic beverages. The National Osteoporosis Foundation recommends that treatment be considered for patients with T-scores of -2 or lower (-1 or lower if patient at high risk for accelerated bone loss). Lifeguard: GRANT Transcribe Date/Time: Oct 21 2019 11:35A Dictated by : IVORY BENAVIDES MD This examination was interpreted and the report reviewed and electronically signed by: IVORY BENAVIDES MD on Oct 21 2019 11:36AM EST Normal [facility] Culture, urine Bacteria identified Cx Nom (U) Culture exhibits no growth. [facility] Work Phone: No Panel Information [facility] Vital Signs Date Time Vital Sign Value Performing Clinician Facility 08-18-2024 14:34-0400 Body height 165.[address] Galina Iraheta MD Work Phone: [facility] 08-18-2024 14:34-0400 Body mass index (BMI) [Ratio] 29.1 kg/m2 Dr. Galina Iraheta MD Work Phone: [facility] 08-18-2024 14:34-0400 Body weight 79.[address] Galina Iraheta MD Work Phone: [facility] 08-13-2024 13:10-0400 Body height 165.[address] Galina Iraheta MD Work Phone: [facility] 03-12-2024 14:00-0500 Body temperature 98.91 [degF] Treatment Wstr Work Phone: [facility] 03-12-2024 14:00-0500 Diastolic blood pressure 73 mm[Hg] Treatment Wstr Work Phone: [facility] 03-12-2024 14:00-0500 Heart rate 68 /min Treatment Wstr Work Phone: [facility] 03-12-2024 14:00-0500 Systolic blood pressure 135 mm[Hg] Treatment Wstr Work Phone: [facility] 02-27-2024 14:58-0500 Body mass index (BMI) [Ratio] 31.12 kg/m2 Treatment Wstr Work Phone: [facility] 02-27-2024 14:58-0500 Body temperature 98.6 [degF] Treatment Wstr Work Phone: [facility] 02-27-2024 14:58-0500 Body weight 84.82 kg Treatment Wstr Work Phone: [facility] 02-27-2024 14:58-0500 Diastolic blood pressure 78 mm[Hg] Treatment Wstr Work Phone: [facility] 02-27-2024 14:58-0500 Heart rate 84 /min Treatment Wstr Work Phone: [facility] 02-27-2024 14:58-0500 SaO2% (BldA) [Mass fraction] 97 % Treatment Wstr Work Phone: [facility] 02-27-2024 14:58-0500 Systolic blood pressure 132 mm[Hg] Treatment Wstr Work Phone: [facility] 02-24-2024 14:01-0500 Body mass index (BMI) [Ratio] 31.12 kg/m2 Cassidy Arreola APRN.CNP Work Phone: [facility] 02-24-2024 14:01-0500 Body temperature 98.49 [degF] Cassidy Arreola FISH HATCHERY WORKER.TRAINING PROGRAM DEVELOPER Work Phone: [facility] 02-24-2024 14:01-0500 Body weight 84.82 kg Cassidy Arreola FISH HATCHERY WORKER.TRAINING PROGRAM DEVELOPER Work Phone: [facility] 02-24-2024 14:01-0500 Diastolic blood pressure 73 mm[Hg] Cassidy Blackmonenter FISH HATCHERY WORKER.TRAINING PROGRAM DEVELOPER Work Phone: [facility] 02-24-2024 14:01-0500 Heart rate 87 /min Cassidy Arreola FISH HATCHERY WORKER.TRAINING PROGRAM DEVELOPER Work Phone: [facility] 02-24-2024 14:01-0500 SaO2% (BldA) [Mass fraction] 97 % Cassidy Arreola FISH HATCHERY WORKER.TRAINING PROGRAM DEVELOPER Work Phone: [facility] 02-24-2024 14:01-0500 Systolic blood pressure 125 mm[Hg] Cassidy Blackmonenter FISH HATCHERY WORKER.TRAINING PROGRAM DEVELOPER Work Phone: [facility] 02-24-2024 13:20-0500 Body mass index (BMI) [Ratio] 31.12 kg/m2 Lab/Port Wstr Work Phone: [facility] 02-24-2024 13:20-0500 Body weight 84.82 kg Lab/Port Wstr Work Phone: [facility] 01-28-2024 11:06-0500 Body mass index (BMI) [Ratio] 30.41 kg/m2 Treatment Wstr Work Phone: [facility] 01-28-2024 11:06-0500 Body temperature 97.59 [degF] Treatment Wstr Work Phone: [facility] 01-28-2024 11:06-0500 Body weight 82.9 kg Treatment Wstr Work Phone: [facility] 01-28-2024 11:06-0500 Diastolic blood pressure 66 mm[Hg] Treatment Wstr Work Phone: [facility] 01-28-2024 11:06-0500 Heart rate 79 /min Treatment Wstr Work Phone: [facility] 01-28-2024 11:06-0500 Respiratory rate 18 /min Treatment Wstr Work Phone: [facility] 01-28-2024 11:06-0500 SaO2% (BldA) [Mass fraction] 96 % Treatment Wstr Work Phone: [facility] 01-28-2024 11:06-0500 Systolic blood pressure 124 mm[Hg] Treatment Wstr Work Phone: [facility] 12-11-2023 08:55-0400 Body temperature 98.01 [degF] Treatment Wstr Work Phone: [facility] 12-11-2023 08:55-0400 Diastolic blood pressure 68 mm[Hg] Treatment Wstr Work Phone: [facility] 12-11-2023 08:55-0400 Heart rate 78 /min Treatment Wstr Work Phone: [facility] 12-11-2023 08:55-0400 Respiratory rate 14 /min Treatment Wstr Work Phone: [facility] 12-11-2023 08:55-0400 SaO2% (BldA) [Mass fraction] 98 % Treatment Wstr Work Phone: [facility] 12-11-2023 08:55-0400 Systolic blood pressure 126 mm[Hg] Treatment Wstr Work Phone: [facility] 12-04-2023 08:11-0400 Body temperature 98.4 [degF] Treatment Wstr Work Phone: [facility] 12-04-2023 08:11-0400 Diastolic blood pressure 71 mm[Hg] Treatment Wstr Work Phone: [facility] 12-04-2023 08:11-0400 Heart rate 74 /min Treatment Wstr Work Phone: [facility] 12-04-2023 08:11-0400 Respiratory rate 16 /min Treatment Wstr Work Phone: [facility] 12-04-2023 08:11-0400 Systolic blood pressure 115 mm[Hg] Treatment Wstr Work Phone: [facility] 10-09-2023 10:49-0400 Body mass index (BMI) [Ratio] 30.35 kg/m2 Treatment Wstr Work Phone: [facility] 10-09-2023 10:49-0400 Body temperature 98.2 [degF] Treatment Wstr Work Phone: [facility] 10-09-2023 10:49-0400 Body weight 82.74 kg Treatment Wstr Work Phone: [facility] 10-09-2023 10:49-0400 Diastolic blood pressure 70 mm[Hg] Treatment Wstr Work Phone: [facility] 10-09-2023 10:49-0400 Heart rate 94 /min Treatment Wstr Work Phone: [facility] 10-09-2023 10:49-0400 Respiratory rate 16 /min Treatment Wstr Work Phone: [facility] 10-09-2023 10:49-0400 SaO2% (BldA) [Mass fraction] 97 % Treatment Wstr Work Phone: [facility] 10-09-2023 10:49-0400 Systolic blood pressure 142 mm[Hg] Treatment Wstr Work Phone: [facility] 09-12-2023 11:10-0400 Body temperature 97.81 [degF] Treatment Wstr Work Phone: [facility] 09-12-2023 11:10-0400 Diastolic blood pressure 61 mm[Hg] Treatment Wstr Work Phone: [facility] 09-12-2023 11:10-0400 Heart rate 90 /min Treatment Wstr Work Phone: [facility] 09-12-2023 11:10-0400 Respiratory rate 16 /min Treatment Wstr Work Phone: [facility] 09-12-2023 11:10-0400 Systolic blood pressure 136 mm[Hg] Treatment Wstr Work Phone: [facility] 08-28-2023 11:00-0400 Body temperature 98.8 [degF] Treatment Wstr Work Phone: [facility] 08-28-2023 11:00-0400 Diastolic blood pressure 56 mm[Hg] Treatment Wstr Work Phone: [facility] 08-28-2023 11:00-0400 Heart rate 86 /min Treatment Wstr Work Phone: [facility] 08-28-2023 11:00-0400 Systolic blood pressure 130 mm[Hg] Treatment Wstr Work Phone: [facility] 08-19-2023 11:01-0400 Body temperature 98.71 [degF] Cassidy Arreola FISH HATCHERY WORKER.TRAINING PROGRAM DEVELOPER Work Phone: [facility] 08-19-2023 11:01-0400 Diastolic blood pressure 66 mm[Hg] Cassidy Arreola FISH HATCHERY WORKER.TRAINING PROGRAM DEVELOPER Work Phone: [facility] 08-19-2023 11:01-0400 Heart rate 87 /min Cassidy Arreola FISH HATCHERY WORKER.TRAINING PROGRAM DEVELOPER Work Phone: [facility] 08-19-2023 11:01-0400 SaO2% (BldA) [Mass fraction] 97 % Cassidy Arreola FISH HATCHERY WORKER.TRAINING PROGRAM DEVELOPER Work Phone: [facility] 08-19-2023 11:01-0400 Systolic blood pressure 131 mm[Hg] Cassidy Arreola FISH HATCHERY WORKER.TRAINING PROGRAM DEVELOPER Work Phone: [facility] 07-15-2023 14:28-0400 Body height 165.1 cm Vikash Sylvester FISH HATCHERY WORKER.TRAINING PROGRAM DEVELOPER Work Phone: [facility] 07-15-2023 14:28-0400 Body mass index (BMI) [Ratio] 29.79 kg/m2 Vikash Sylvester FISH HATCHERY WORKER.TRAINING PROGRAM DEVELOPER Work Phone: [facility] 07-15-2023 14:28-0400 Body weight 81.19 kg Vikash Sylvester FISH HATCHERY WORKER.TRAINING PROGRAM DEVELOPER Work Phone: [facility] 07-15-2023 14:28-0400 Diastolic blood pressure 84 mm[Hg] Vikash Sylvester FISH HATCHERY WORKER.TRAINING PROGRAM DEVELOPER Work Phone: [facility] 07-15-2023 14:28-0400 Systolic blood pressure 122 mm[Hg] Vikash Sylvester FISH HATCHERY WORKER.TRAINING PROGRAM DEVELOPER Work Phone: [facility] 07-04-2023 11:28-0400 Body weight 80.92 kg Thalia Monterroso MD Work Phone: [facility] 07-04-2023 11:28-0400 Diastolic blood pressure 65 mm[Hg] Thalia Monterroso MD Work Phone: [facility] 07-04-2023 11:28-0400 Heart rate 80 /min Thalia Monterroso MD Work Phone: [facility] 07-04-2023 11:28-0400 Systolic blood pressure 141 mm[Hg] Thalia Monterroso MD Work Phone: [facility] 06-16-2023 14:16-0400 Body weight 82.1 kg Cecilio Ibarra DO Work Phone: [facility] 06-16-2023 14:16-0400 Diastolic blood pressure 68 mm[Hg] Cecilio Ibarra DO Work Phone: [facility] 06-16-2023 14:16-0400 Heart rate 79 /min Cecilio Ibarra DO Work Phone: [facility] 06-16-2023 14:16-0400 SaO2% (BldA) [Mass fraction] 96 % Cecilio Ibarra DO Work Phone: [facility] 06-16-2023 14:16-0400 Systolic blood pressure 126 mm[Hg] Cecilio Ibarra DO Work Phone: [facility] 04-07-2023 13:01-0500 Body height 165.[address] Galina Iraheta Work Phone: [facility] 02-11-2023 10:15-0500 Body temperature 97.9 [degF] Cassidy Arreola FISH HATCHERY WORKER.TRAINING PROGRAM DEVELOPER Work Phone: [facility] 02-11-2023 10:15-0500 Body weight 80.74 kg Cassidy Arreola FISH HATCHERY WORKER.TRAINING PROGRAM DEVELOPER Work Phone: [facility] 02-11-2023 10:15-0500 Diastolic blood pressure 70 mm[Hg] Cassidy Blackmonenter FISH HATCHERY WORKER.TRAINING PROGRAM DEVELOPER Work Phone: [facility] 02-11-2023 10:15-0500 Heart rate 62 /min Cassidy Arreola FISH HATCHERY WORKER.TRAINING PROGRAM DEVELOPER Work Phone: [facility] 02-11-2023 10:15-0500 SaO2% (BldA) [Mass fraction] 99 % Cassidy Arreola FISH HATCHERY WORKER.TRAINING PROGRAM DEVELOPER Work Phone: [facility] 02-11-2023 10:15-0500 Systolic blood pressure 124 mm[Hg] Cassidy Arreola FISH HATCHERY WORKER.TRAINING PROGRAM DEVELOPER Work Phone: [facility] 12-13-2022 14:31-0400 Body height 167.6 cm Juliet Gaffney FISH HATCHERY WORKER.TRAINING PROGRAM DEVELOPER Work Phone: [facility] 12-13-2022 14:31-0400 Body weight 79.38 kg Juliet Gaffney FISH HATCHERY WORKER.TRAINING PROGRAM DEVELOPER Work Phone: [facility] 12-13-2022 14:31-0400 Diastolic blood pressure 60 mm[Hg] Juliet Gaffney FISH HATCHERY WORKER.TRAINING PROGRAM DEVELOPER Work Phone: [facility] 12-13-2022 14:31-0400 Heart rate 68 /min Juliet Gaffney FISH HATCHERY WORKER.TRAINING PROGRAM DEVELOPER Work Phone: [facility] 12-13-2022 14:31-0400 SaO2% (BldA) [Mass fraction] 97 % Juliet Gaffney FISH HATCHERY WORKER.TRAINING PROGRAM DEVELOPER Work Phone: [facility] 12-13-2022 14:31-0400 Systolic blood pressure 130 mm[Hg] Juliet Gaffney FISH HATCHERY WORKER.TRAINING PROGRAM DEVELOPER Work Phone: [facility] 09-05-2022 09:20-0400 Body height 167.6 cm Cecilio Ibarra DO Work Phone: [facility] 09-05-2022 09:20-0400 Body weight 78.02 kg Cecilio Ibarra DO Work Phone: [facility] 09-05-2022 09:20-0400 Diastolic blood pressure 64 mm[Hg] Cecilio Ibarra DO Work Phone: [facility] 09-05-2022 09:20-0400 Heart rate 69 /min Cecilio Ibarra DO Work Phone: [facility] 09-05-2022 09:20-0400 Systolic blood pressure 124 mm[Hg] Cecilio Ibarra DO Work Phone: [facility] 08-27-2022 11:27-0400 Body temperature 98.4 [degF] Cassidy Arreola FISH HATCHERY WORKER.TRAINING PROGRAM DEVELOPER Work Phone: [facility] 08-27-2022 11:27-0400 Body weight 76.66 kg Cassidy Arreola FISH HATCHERY WORKER.TRAINING PROGRAM DEVELOPER Work Phone: [facility] 08-27-2022 11:27-0400 Diastolic blood pressure 56 mm[Hg] Cassidy Arreola FISH HATCHERY WORKER.TRAINING PROGRAM DEVELOPER Work Phone: [facility] 08-27-2022 11:27-0400 Heart rate 73 /min Cassidy Arreola FISH HATCHERY WORKER.TRAINING PROGRAM DEVELOPER Work Phone: [facility] 08-27-2022 11:27-0400 SaO2% (BldA) [Mass fraction] 96 % Wabash Arreola FISH HATCHERY WORKER.TRAINING PROGRAM DEVELOPER Work Phone: [facility] 08-27-2022 11:27-0400 Systolic blood pressure 116 mm[Hg] Cassidy Arreola FISH HATCHERY WORKER.TRAINING PROGRAM DEVELOPER Work Phone: [facility] 06-05-2022 11:03-0400 Body temperature 97.81 [degF] Cassidy Arreola FISH HATCHERY WORKER.TRAINING PROGRAM DEVELOPER Work Phone: [facility] 06-05-2022 11:03-0400 Body weight 77.34 kg Cassidy Arreola FISH HATCHERY WORKER.TRAINING PROGRAM DEVELOPER Work Phone: [facility] 06-05-2022 11:03-0400 Diastolic blood pressure 54 mm[Hg] Cassidy Arreola FISH HATCHERY WORKER.TRAINING PROGRAM DEVELOPER Work Phone: [facility] 06-05-2022 11:03-0400 Heart rate 74 /min Cassidy Arreola FISH HATCHERY WORKER.TRAINING PROGRAM DEVELOPER Work Phone: [facility] 06-05-2022 11:03-0400 SaO2% (BldA) [Mass fraction] 97 % Cassidy Arreola FISH HATCHERY WORKER.TRAINING PROGRAM DEVELOPER Work Phone: [facility] 06-05-2022 11:03-0400 Systolic blood pressure 116 mm[Hg] Cassidy Blackmonenter FISH HATCHERY WORKER.TRAINING PROGRAM DEVELOPER Work Phone: [facility] 04-17-2022 09:47-0500 Body temperature 97.9 [degF] Treatment Wstr Work Phone: [facility] 04-17-2022 09:47-0500 Diastolic blood pressure 60 mm[Hg] Treatment Wstr Work Phone: [facility] 04-17-2022 09:47-0500 Heart rate 77 /min Treatment Wstr Work Phone: [facility] 04-17-2022 09:47-0500 SaO2% (BldA) [Mass fraction] 97 % Treatment Wstr Work Phone: [facility] 04-17-2022 09:47-0500 Systolic blood pressure 126 mm[Hg] Treatment Wstr Work Phone: [facility] 04-15-2022 14:39-0500 Body temperature 97.2 [degF] Treatment Wstr Work Phone: [facility] 04-15-2022 14:39-0500 Diastolic blood pressure 62 mm[Hg] Treatment Wstr Work Phone: [facility] 04-15-2022 14:39-0500 Heart rate 68 /min Treatment Wstr Work Phone: [facility] 04-15-2022 14:39-0500 Respiratory rate 16 /min Treatment Wstr Work Phone: [facility] 04-15-2022 14:39-0500 Systolic blood pressure 135 mm[Hg] Treatment Wstr Work Phone: [facility] 04-12-2022 13:55-0500 Body temperature 97.7 [degF] Treatment Wstr Work Phone: [facility] 04-12-2022 13:55-0500 Diastolic blood pressure 47 mm[Hg] Treatment Wstr Work Phone: [facility] 04-12-2022 13:55-0500 Heart rate 71 /min Treatment Wstr Work Phone: [facility] 04-12-2022 13:55-0500 Systolic blood pressure 119 mm[Hg] Treatment Wstr Work Phone: [facility] 04-10-2022 10:54-0500 Body temperature 97.3 [degF] Treatment Wstr Work Phone: [facility] 04-10-2022 10:54-0500 Diastolic blood pressure 54 mm[Hg] Treatment Wstr Work Phone: [facility] 04-10-2022 10:54-0500 Heart rate 78 /min Treatment Wstr Work Phone: [facility] 04-10-2022 10:54-0500 Systolic blood pressure 134 mm[Hg] Treatment Wstr Work Phone: [facility] 04-09-2022 14:29-0500 Body height 167.6 cm Taty Perez APRN.TRAINING PROGRAM DEVELOPER Work Phone: [facility] 04-09-2022 14:29-0500 Body weight 76.66 kg Taty Perez APRN.TRAINING PROGRAM DEVELOPER Work Phone: [facility] 04-09-2022 14:29-0500 Diastolic blood pressure 58 mm[Hg] Taty Perez APRN.TRAINING PROGRAM DEVELOPER Work Phone: [facility] 04-09-2022 14:29-0500 Heart rate 75 /min Taty Perez APRN.TRAINING PROGRAM DEVELOPER Work Phone: [facility] 04-09-2022 14:29-0500 SaO2% (BldA) [Mass fraction] 98 % Taty Perez FISH HATCHERY WORKER.TRAINING PROGRAM DEVELOPER Work Phone: [facility] 04-09-2022 14:29-0500 Systolic blood pressure 118 mm[Hg] Taty Perez FISH HATCHERY WORKER.TRAINING PROGRAM DEVELOPER Work Phone: [facility] 04-08-2022 11:01-0500 Body temperature 97.3 [degF] Treatment Wstr Work Phone: [facility] 04-08-2022 11:01-0500 Diastolic blood pressure 57 mm[Hg] Treatment Wstr Work Phone: [facility] 04-08-2022 11:01-0500 Heart rate 79 /min Treatment Wstr Work Phone: [facility] 04-08-2022 11:01-0500 Systolic blood pressure 125 mm[Hg] Treatment Wstr Work Phone: [facility] 03-06-2022 14:21-0500 Body temperature 97.11 [degF] Cassidy Arreola FISH HATCHERY WORKER.TRAINING PROGRAM DEVELOPER Work Phone: [facility] 03-06-2022 14:21-0500 Body weight 76.43 kg Cassidy Arreola FISH HATCHERY WORKER.TRAINING PROGRAM DEVELOPER Work Phone: [facility] 03-06-2022 14:21-0500 Diastolic blood pressure 57 mm[Hg] Cassidy Arreola FISH HATCHERY WORKER.TRAINING PROGRAM DEVELOPER Work Phone: [facility] 03-06-2022 14:21-0500 Heart rate 72 /min Cassidy Arreola FISH HATCHERY WORKER.TRAINING PROGRAM DEVELOPER Work Phone: [facility] 03-06-2022 14:21-0500 SaO2% (BldA) [Mass fraction] 100 % Cassidy Arreola FISH HATCHERY WORKER.TRAINING PROGRAM DEVELOPER Work Phone: [facility] 03-06-2022 14:21-0500 Systolic blood pressure 119 mm[Hg] Cassidy Arreola FISH HATCHERY WORKER.TRAINING PROGRAM DEVELOPER Work Phone: [facility] 03-06-2022 13:44-0500 Body temperature 97 [degF] Dr. Galina Iraheta Work Phone: 2(019)474-409[address] [place] [address] 03-06-2022 13:44-0500 Diastolic blood pressure 64 mm[Hg] Dr. Galina Iraheta Work Phone: 7(127)095-343204 [place] [address] 03-06-2022 13:44-0500 Heart rate 68 /min Dr. Galina Iraheta Work Phone: 2(596)625-225497 [place] [address] 03-06-2022 13:44-0500 Respiratory rate 16 /min Dr. Galina Iraheta Work Phone: 6(770)050-224504 [place] [address] 03-06-2022 13:44-0500 SaO2% (BldA) [Mass fraction] 99 % Dr. Galina Iraheta Work Phone: 2(839)671-940004 [place] [address] 03-06-2022 13:44-0500 Systolic blood pressure 132 mm[Hg] Dr. Galina Iraheta Work Phone: 2(624)373-959304 [place] [address] 03-06-2022 08:50-0500 Body height 165.[address] Galina Iraheta Work Phone: 9(126)671-255104 [place] [address] 03-06-2022 08:50-0500 Body mass index (BMI) [Ratio] 27.3 kg/m2 Dr. Galina Iraheta Work Phone: 0(409)848-503604 [place] [address] 03-06-2022 08:50-0500 Body weight 74.[address] Galina Iraheta Work Phone: [facility] 01-02-2022 13:31-0400 Body height 167.6 cm Basilia Hernández MD Work Phone: [facility] 01-02-2022 13:31-0400 Body weight 74.84 kg Basilia Hernández MD Work Phone: [facility] 01-02-2022 13:31-0400 Diastolic blood pressure 62 mm[Hg] Basilia Hernández MD Work Phone: [facility] 01-02-2022 13:31-0400 Systolic blood pressure 126 mm[Hg] Basilia Hernández MD Work Phone: [facility] 12-28-2021 15:09-0400 Body temperature 98.9 [degF] Dr. Galina Iraheta Work Phone: [facility] 12-28-2021 15:09-0400 Diastolic blood pressure 79 mm[Hg] Dr. Galina Iraheta Work Phone: [facility] 12-28-2021 15:09-0400 Heart rate 70 /min Dr. Galina Iraheta Work Phone: [facility] 12-28-2021 15:09-0400 Respiratory rate 16 /min Dr. Galina Iraheta Work Phone: [facility] 12-28-2021 15:09-0400 SaO2% (BldA) [Mass fraction] 94 % Dr. Galina Iraheta Work Phone: [facility] 12-28-2021 15:09-0400 Systolic blood pressure 125 mm[Hg] Dr. Galina Iraheta Work Phone: [facility] 12-28-2021 11:18-0400 Body height 165.[address] Galina Iraheta Work Phone: [facility] Work Phone: 12-28-2021 11:18-0400 Body mass index (BMI) [Ratio] 27.4 kg/m2 Dr. Galina Iraheta Work Phone: [facility] 12-28-2021 11:18-0400 Body weight 74.[address] Galina Iraheta Work Phone: [facility] 10-18-2021 18:15-0400 Diastolic blood pressure 68 mm[Hg] [facility] Work Phone: 10-18-2021 18:15-0400 Heart rate 74 /min [facility] Work Phone: 10-18-2021 18:15-0400 Respiratory rate 13 /min [facility] Work Phone: 10-18-2021 18:15-0400 SaO2% (BldA) [Mass fraction] 99 % [facility] Work Phone: 10-18-2021 18:15-0400 Systolic blood pressure 134 mm[Hg] [facility] Work Phone: 10-18-2021 17:15-0400 Body temperature 98.7 [degF] [facility] Work Phone: 10-18-2021 09:50-0400 Body height 167.64 cm [facility] Work Phone: 10-18-2021 09:50-0400 Body mass index (BMI) [Ratio] 27.4 kg/m2 [facility] Work Phone: 10-18-2021 09:50-0400 Body weight 77.11 kg [facility] Work Phone: 10-11-2021 07:56-0400 Body temperature 98.01 [degF] Jeancarlos Hooker MD Work Phone: [facility] 10-11-2021 07:56-0400 Body weight 77.56 kg Jeancarlos Hooker MD Work Phone: [facility] 10-11-2021 07:56-0400 Diastolic blood pressure 48 mm[Hg] Jeancarlos Hooker MD Work Phone: [facility] 10-11-2021 07:56-0400 Heart rate 78 /min Jeancarlos Hooker MD Work Phone: [facility] 10-11-2021 07:56-0400 Respiratory rate 16 /min Jeancarlos Hooker MD Work Phone: [facility] 10-11-2021 07:56-0400 SaO2% (BldA) [Mass fraction] 100 % Jeancarlos Hooker MD Work Phone: [facility] 10-11-2021 07:56-0400 Systolic blood pressure 115 mm[Hg] Jeancarlos Hooker MD Work Phone: [facility] 09-26-2021 14:00-0400 Body height 167.6 cm Basilia Hernández MD Work Phone: [facility] 09-26-2021 14:00-0400 Body weight 77.11 kg Basilia Hernández MD Work Phone: [facility] 09-18-2021 09:15-0400 Body temperature 97.39 [degF] Wabash Arreola FISH HATCHERY WORKER.TRAINING PROGRAM DEVELOPER Work Phone: [facility] 09-18-2021 09:15-0400 Body weight 77.11 kg Cassidy Arreola FISH HATCHERY WORKER.TRAINING PROGRAM DEVELOPER Work Phone: [facility] 09-18-2021 09:15-0400 Diastolic blood pressure 47 mm[Hg] [place] Arreola FISH HATCHERY WORKER.TRAINING PROGRAM DEVELOPER Work Phone: [facility] 09-18-2021 09:15-0400 Heart rate 75 /min Cassidy Arreola FISH HATCHERY WORKER.TRAINING PROGRAM DEVELOPER Work Phone: [facility] 09-18-2021 09:15-0400 Systolic blood pressure 108 mm[Hg] [place] Arreola FISH HATCHERY WORKER.TRAINING PROGRAM DEVELOPER Work Phone: [facility] 09-18-2021 09:12-0400 Body weight 77.25 kg Lab/[facility] Work Phone: [facility] 09-11-2021 10:39-0400 Body weight 76.66 kg Jayde Hebert MD Work Phone: [facility] 09-11-2021 10:39-0400 Diastolic blood pressure 58 mm[Hg] Jayde Hebert MD Work Phone: [facility] 09-11-2021 10:39-0400 Systolic blood pressure 124 mm[Hg] Jayde Hebert MD Work Phone: [facility] 09-05-2021 13:15-0400 Body height 167.6 cm Cecilio Ibarra DO Work Phone: [facility] 09-05-2021 13:15-0400 Body weight 77.66 kg Cecilio Ibarra DO Work Phone: [facility] 09-05-2021 13:15-0400 Diastolic blood pressure 54 mm[Hg] Cecilio Ibarra DO Work Phone: [facility] 09-05-2021 13:15-0400 Heart rate 73 /min Cecilio Ibarra DO Work Phone: [facility] 09-05-2021 13:15-0400 SaO2% (BldA) [Mass fraction] 97 % Cecilio Ibarra DO Work Phone: [facility] 09-05-2021 13:15-0400 Systolic blood pressure 104 mm[Hg] Cecilio Ibarra DO Work Phone: [facility] 08-30-2021 13:17-0400 Body weight 78.47 kg Jayde Hebert MD Work Phone: [facility] 08-26-2021 14:42-0400 Heart rate 76 /min [facility] Work Phone: 08-26-2021 14:42-0400 Respiratory rate 17 /min [facility] Work Phone: 08-26-2021 14:42-0400 SaO2% (BldA) [Mass fraction] 97 % [facility] Work Phone: 08-26-2021 13:01-0400 Diastolic blood pressure 49 mm[Hg] [facility] Work Phone: 08-26-2021 13:01-0400 Systolic blood pressure 111 mm[Hg] [facility] Work Phone: 08-26-2021 12:13-0400 Body height 167.64 cm [facility] Work Phone: 08-26-2021 12:13-0400 Body mass index (BMI) [Ratio] 27.6 kg/m2 [facility] Work Phone: 08-26-2021 12:13-0400 Body temperature 98.1 [degF] [facility] Work Phone: 08-26-2021 12:130400 Body weight 77.56 kg [facility] Work Phone: 08-23-2021 15:21-0400 Body temperature 98 [degF] [facility] Work Phone: 08-23-2021 15:21-0400 Diastolic blood pressure 41 mm[Hg] [facility] Work Phone: 08-23-2021 15:21-0400 Heart rate 72 /min [facility] Work Phone: 08-23-2021 15:21-0400 Respiratory rate 16 /min [facility] Work Phone: 08-23-2021 15:21-0400 SaO2% (BldA) [Mass fraction] 96 % [facility] Work Phone: 08-23-2021 15:21-0400 Systolic blood pressure 105 mm[Hg] [facility] Work Phone: 08-23-2021 12:24-0400 Body height 167.64 cm [facility] Work Phone: 08-23-2021 12:24-0400 Body mass index (BMI) [Ratio] 27.8 kg/m2 [facility] Work Phone: 08-23-2021 12:24-0400 Body weight 78.1 kg [facility] Work Phone: 08-15-2021 16:04-0400 Body weight 78.47 kg Jayde Hebert MD Work Phone: [facility] 08-15-2021 16:04-0400 Diastolic blood pressure 58 mm[Hg] Jayde Hebert MD Work Phone: [facility] 08-15-2021 16:04-0400 Systolic blood pressure 118 mm[Hg] Jayde Hebert MD Work Phone: [facility] 08-08-2021 14:10-0400 Body weight 78.02 kg An Older FISH HATCHERY WORKER.TRAINING PROGRAM DEVELOPER Work Phone: [facility] 08-08-2021 14:10-0400 Diastolic blood pressure 66 mm[Hg] An Older FISH HATCHERY WORKER.TRAINING PROGRAM DEVELOPER Work Phone: [facility] 08-08-2021 14:10-0400 Heart rate 68 /min An Older FISH HATCHERY WORKER.TRAINING PROGRAM DEVELOPER Work Phone: [facility] 08-08-2021 14:10-0400 Respiratory rate 16 /min An Older FISH HATCHERY WORKER.TRAINING PROGRAM DEVELOPER Work Phone: [facility] 08-08-2021 14:10-0400 Systolic blood pressure 116 mm[Hg] An Older FISH HATCHERY WORKER.TRAINING PROGRAM DEVELOPER Work Phone: [facility] 07-05-2021 09:41-0400 Body height 167.6 cm Johnny Turk MD Work Phone: [facility] 07-05-2021 09:41-0400 Body temperature 98.6 [degF] Johnny Turk MD Work Phone: [facility] 07-05-2021 09:41-0400 Body weight 79.83 kg Johnny Turk MD Work Phone: [facility] 07-05-2021 09:41-0400 Diastolic blood pressure 60 mm[Hg] Johnny Turk MD Work Phone: [facility] 07-05-2021 09:41-0400 Heart rate 69 /min Johnny Turk MD Work Phone: [facility] 07-05-2021 09:41-0400 SaO2% (BldA) [Mass fraction] 100 % Johnny Turk MD Work Phone: [facility] 07-05-2021 09:41-0400 Systolic blood pressure 106 mm[Hg] Johnny Turk MD Work Phone: [facility] 07-03-2021 11:58-0400 Body temperature 98.4 [degF] Alma Older FISH HATCHERY WORKER.TRAINING PROGRAM DEVELOPER Work Phone: [facility] 07-03-2021 11:58-0400 Body weight 78.93 kg Alma Older FISH HATCHERY WORKER.TRAINING PROGRAM DEVELOPER Work Phone: [facility] 07-03-2021 11:58-0400 Diastolic blood pressure 64 mm[Hg] Alma Older FISH HATCHERY WORKER.TRAINING PROGRAM DEVELOPER Work Phone: [facility] 07-03-2021 11:58-0400 Heart rate 67 /min Alma Older FISH HATCHERY WORKER.TRAINING PROGRAM DEVELOPER Work Phone: [facility] 07-03-2021 11:58-0400 Respiratory rate 12 /min Alma Older FISH HATCHERY WORKER.TRAINING PROGRAM DEVELOPER Work Phone: [facility] 07-03-2021 11:58-0400 SaO2% (BldA) [Mass fraction] 97 % Alma Older FISH HATCHERY WORKER.TRAINING PROGRAM DEVELOPER Work Phone: [facility] 07-03-2021 11:58-0400 Systolic blood pressure 118 mm[Hg] Alma Older FISH HATCHERY WORKER.TRAINING PROGRAM DEVELOPER Work Phone: [facility] 07-03-2021 04:44-0400 Diastolic blood pressure 64 mm[Hg] [facility] Work Phone: 07-03-2021 04:44-0400 Heart rate 69 /min [facility] Work Phone: 07-03-2021 04:44-0400 Respiratory rate 18 /min [facility] Work Phone: 07-03-2021 04:44-0400 SaO2% (BldA) [Mass fraction] 96 % [facility] Work Phone: 07-03-2021 04:44-0400 Systolic blood pressure 119 mm[Hg] [facility] Work Phone: 07-02-2021 23:21-0400 Body height 167.64 cm [facility] Work Phone: 07-02-2021 23:21-0400 Body mass index (BMI) [Ratio] 28.4 kg/m2 [facility] Work Phone: 07-02-2021 23:21-0400 Body temperature 97.2 [degF] [facility] Work Phone: 07-02-2021 23:21-0400 Body weight 79.9 kg [facility] Work Phone: 06-05-2021 10:40-0400 Body height 167.6 cm Aby Bruner DO Work Phone: [facility] 06-05-2021 10:40-0400 Body weight 79.83 kg Aby Bruner DO Work Phone: [facility] 06-05-2021 10:40-0400 Diastolic blood pressure 62 mm[Hg] Aby Bruner DO Work Phone: [facility] 06-05-2021 10:40-0400 Heart rate 65 /min Aby Bruner DO Work Phone: [facility] 06-05-2021 10:40-0400 SaO2% (BldA) [Mass fraction] 99 % Aby Bruner DO Work Phone: [facility] 06-05-2021 10:40-0400 Systolic blood pressure 110 mm[Hg] Aby Bruner DO Work Phone: [facility] Encounters Encounter Date Encounter Type Care Provider Facility Start: 08-27-2024 End: 08-27-2024 ambulatory Thalia Monterroso MD Work Phone: Rheumatology Comment on above: Rheumatoid arthritis involving multiple sites, unspecified whether rheumatoid factor present (HCC) (Primary Dx); Senile osteoporosis; On prednisone therapy [place] fax Start: 08-27-2024 End: 08-27-2024 Telemedicine consultation with patient Thalia Monterroso MD Work Phone: Rheumatology Start: 08-18-2024 End: 08-18-[address] Charles Ramos MD -[facility] Start: 08-18-2024 End: 08-18-2024 ambulatory Carmella Deluca Facility:[facility] Start: 08-13-2024 End: 08-13-[address] Charles Ramos MD -[facility] Start: 08-13-2024 End: 08-13-[address] Galina Iraheta MD Work Phone: [facility] Work Phone: Start: 08-06-2024 End: 08-06-[address] Galina Iraheta MD Work Phone: [facility] Work Phone: Start: 08-06-2024 End: 08-06-[address] Hiwot Abdullahi MD -Cat Scan [facility] Work Phone: Start: 08-06-2024 End: 08-06-2024 ambulatory [facility] Facility:[facility] Start: 08-02-2024 End: 08-02-2024 Departed Referred Reji GonzalezAgnes [facility] Start: 08-02-2024 End: 08-02-2024 [facility] Facility:[facility] Start: 07-08-2024 End: 07-08-[address] Galina Iraheta MD Work Phone: [facility] Work Phone: Start: 07-08-2024 End: 07-08-2024 Departed Referred Reji GonzalezAgnes [facility] Start: 07-08-2024 Registered Referred Reji GonzalezAgnes [facility] [place] Start: 07-07-2024 End: 07-08-[address] Galina Iraheta MD Work Phone: [facility] Work Phone: Start: 07-07-2024 End: 07-07-2024 Departed Referred Reji GonzalezAgnes [facility] Start: 07-07-2024 Registered Referred Reji GonzalezAgnes [facility] [place] Start: 07-06-2024 End: 07-07-[address] Galina Iraheta MD Work Phone: [facility] Work Phone: Start: 07-06-2024 End: 07-06-[address] Reji Reyna MD -[facility] Work Phone: Start: 07-05-2024 End: 07-05-[address] Galina Iraheta MD Work Phone: [facility] Work Phone: Start: 07-05-2024 End: 07-05-2024 Departed Referred Reji Reyna MD -[facility] Start: 07-05-2024 Registered Referred Reji GonzalezAgnes [facility] Start: 07-05-2024 End: 07-05-2024 ambulatory [facility] Facility:[facility] Start: 06-16-2024 End: 06-16-2024 Telephone encounter Thalia Monterroso MD Work Phone: Rheumatology Start: 06-16-2024 End: 06-16-2024 Departed Referred Reji Reyna MD -[facility] Start: 06-16-2024 [facility] Start: 06-16-2024 End: 06-16-2024 ambulatory [facility] Facility:[facility] Start: 06-11-2024 End: 06-11-2024 ambulatory [facility] [facility] Work Phone: Hematology/Oncology Comment on above: Rheumatoid arthritis involving multiple sites, unspecified whether rheumatoid factor present (HCC); Senile osteoporosis Start: 05-31-2024 End: 05-31-[address] Galina Iraheta MD Work Phone: [facility] Work Phone: Start: 05-31-2024 End: 05-31-2024 [facility] Start: 05-31-2024 Registered Referred Reji GonzalezSANDRA [facility] Start: 05-31-2024 End: 05-31-2024 ambulatory [facility] Facility:[facility] Start: 05-21-2024 End: 05-21-2024 ambulatory Thalia Monterroso MD Work Phone: Rheumatology Comment on above: Rheumatoid arthritis involving multiple sites, unspecified whether rheumatoid factor present (HCC) (Primary Dx); Senile osteoporosis; On prednisone therapy Start: 05-21-2024 End: 05-21-2024 Telemedicine consultation with patient Thalia Monterroso MD Work Phone: Rheumatology Start: 05-13-2024 End: 05-13-[address] Galina Iraheta MD Work Phone: [facility] Work Phone: Start: 05-13-2024 End: 05-13-2024 Departed Referred Reji GonzalezAgnes [facility] Start: 05-13-2024 End: 05-13-2024 ambulatory [facility] Facility:[facility] Start: 05-13-2024 End: 05-13-2024 Patient encounter procedure Galina Horner NP-Ana M -[facility] Work Phone: Start: 05-13-2024 End: 05-13-2024 ambulatory Reji POPE Facility:[facility] Start: 05-03-2024 ambulatory Reji OPPE Facility:[facility] Start: 05-03-2024 Registered Referred Reji GonzalezAgnes [facility] Start: 04-23-2024 End: 04-23-2024 Departed Referred Reji GonzalezAgnes [facility] Start: 04-23-2024 End: 04-23-2024 ambulatory Reji POPE Facility:[facility] Start: 04-05-2024 End: 04-05-2024 Departed Referred Reji [facility] Start: 04-05-2024 End: 04-05-2024 ambulatory Reji POPE Facility:[facility] Start: 03-25-2024 End: 03-26-2024 ambulatory Cassidy Arreola APRN.CNP Work Phone: Hematology/Oncology Comment on above: Test Results Start: 03-19-2024 End: 03-19-2024 [facility] Comment on above: Bilateral hip pain [ M25.551, M25.552] Iron deficiency anem ia due to chronic blood loss [D50.0] Start: 03-19-2024 End: 03-19-2024 ambulatory REJI REYNA Facility: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 Dx); Iron malabsorption Start: 03-05-2024 End: 03-05-2024 ambulatory Thalia Monterroso MD Work Phone: Rheumatology Comment on above: Rheumatoid arthritis involving multiple sites, unspecified whether rheumatoid factor present (HCC) (Primary Dx); Senile osteoporosis; Medication monitoring encounter Start: 03-05-2024 End: 03-05-2024 Telemedicine consultation with patient Thalia Monterroso MD Work Phone: Rheumatology Start: 03-02-2024 End: 03-04-2024 Telephone encounter Cassidy Arreola APRN.CNP Work Phone: Hematology/Oncology Comment on above: Appointment Start: 03-02-2024 ambulatory Reji POPE Facility:[facility] Start: 03-02-2024 [facility] Start: 03-01-2024 ambulatory Reji POPE Facility:[facility] Start: 03-01-2024 [facility] Start: 02-27-2024 End: 02-27-2024 ambulatory Treatment Rm [facility] Work Phone: Hematology/Oncology Comment on above: Iron deficiency anem ia due to chronic blood loss (Primary Dx); Iron malabsorption Start: 02-24-2024 End: 02-24-2024 Follow-up encounter Cassidy Arreola APRN.CNP Work Phone: Hematology/Oncology Comment on above: Encounter for follow -up surveillance of breast cancer (Primary Dx); Iron deficiency anemia due to chronic blood loss; Bilateral hip pain; Generalized abdominal pain; Abdominal bloating; Personal history of breast cancer; Occult blood in stools Start: 02-24-2024 End: 02-24-2024 Patient encounter procedure Cassidy Arreola APRN.CNP Work Phone: Hematology/Oncology Start: 02-24-2024 End: 03-29-2024 ambulatory [facility] [facility] Work Phone: Hematology/Oncology Comment on above: Rheumatoid arthritis involving multiple sites with positive rheumatoid factor (HCC) (Primary Dx); Rheumatoid arthritis involving multiple sites, unspecified whether rheumatoid factor present (HCC); Senile osteoporosis; Malignant neoplasm of lower-inner quadrant of right breast of female, estrogen receptor positive (HCC); Iron deficiency anemia due to chronic blood loss Start: 02-02-2024 End: 02-02-2024 ambulatory Efarline Reyna OLS Facility:[facility] Start: 01-28-2024 End: 01-28-2024 ambulatory Treatment Rm [facility] Work Phone: Hematology/Oncology Comment on above: Rheumatoid arthritis involving multiple sites with positive rheumatoid factor (HCC) (Primary Dx) Start: 01-23-2024 End: 01-23-2024 Telephone encounter Thalia Monterroso MD Work Phone: Rheumatology Comment on above: Patient Update Start: 01-14-2024 End: 01-14-2024 ambulatory Efarline Reyna OLS Facility:[facility] Start: 01-05-2024 ambulatory Efarline modi OLS Facility:[facility] Start: 12-31-2023 End: 12-31-2023 ambulatory Galina Iraheta Facility:[facility] Start: 12-29-2023 ambulatory Efarline modi OLS Facility:[facility] Start: 12-11-2023 End: 12-11-2023 ambulatory EFEWONGBE Yanelis REYNA Hematology/Oncology Comment on above: Senile osteoporosis (Primary Dx) Start: 12-11-2023 End: 12-11-2023 Patient encounter procedure Treatment [facility]m [facility] Work Phone: Hematology/Oncology Start: 12-04-2023 End: 12-04-2023 ambulatory EFEWONGBE Yanelis REYNA Hematology/Oncology Comment on above: Rheumatoid arthritis involving multiple sites with positive rheumatoid factor (HCC) (Primary Dx) Start: 12-04-2023 End: 12-04-2023 Patient encounter procedure Treatment [facility]m [facility] Work Phone: Hematology/Oncology Start: 12-02-2023 ambulatory Reji modi OLS Facility:[facility] Start: 12-01-2023 ambulatory Reji modi OLS Facility:[facility] Start: 11-27-2023 ambulatory Reji modi OLS Facility:[facility] Start: 11-25-2023 End: 11-26-2023 Telephone encounter Sal Bonilla DO Work Phone: Hematology/Oncology Comment on above: Patient Update Start: 11-25-2023 End: 11-25-2023 ambulatory [facility] Work Phone: Hematology/Oncology Comment on above: Rheumatoid arthritis involving multiple sites, unspecified whether rheumatoid factor present (HCC); Senile osteoporosis; Iron deficiency Start: 11-14-2023 End: 11-14-2023 ambulatory Thalia Monterroso MD Work Phone: Rheumatology Comment on above: Rheumatoid arthritis involving multiple sites, unspecified whether rheumatoid factor present (HCC) (Primary Dx); Senile osteoporosis; Medication monitoring encounter Start: 11-14-2023 End: 11-14-2023 Telemedicine consultation with patient Thalia Monterroso MD Work Phone: Rheumatology Start: 11-07-2023 End: 11-07-[facility] Start: 11-04-2023 End: 11-04-2023 ambulatory [facility] Facility:[facility] Start: 11-03-2023 ambulatory Efarline modi OLS Facility:[facility] Start: 10-09-2023 End: 10-09-2023 ambulatory [facility] Hematology/Oncology Comment on above: Rheumatoid arthritis involving multiple sites with positive rheumatoid factor (HCC) (Primary Dx) Start: 10-09-2023 End: 10-09-2023 Patient encounter procedure Treatment [facility]m [facility] Work Phone: Hematology/Oncology Start: 09-29-2023 End: 09-29-2023 ambulatory Galina Iraheta Facility:[facility] Start: 09-12-2023 End: 09-12-2023 ambulatory Treatment Rm [facility] Work Phone: Hematology/Oncology Comment on above: Rheumatoid arthritis involving multiple sites with positive rheumatoid factor (HCC) (Primary Dx) Start: 09-01-2023 End: 09-01-2023 ambulatory [place] [facility] Facility:[facility] Start: 08-28-2023 End: 08-28-2023 ambulatory Treatment Rm [facility] Work Phone: Hematology/Oncology Comment on above: Rheumatoid arthritis involving multiple sites with positive rheumatoid factor (HCC) (Primary Dx) Start: 08-19-2023 Telephone encounter Cassidy vizcaino APRN.CNP Work Phone: Hematology/Oncology Comment on above: Orders Start: 08-19-2023 End: 08-19-2023 Patient encounter procedure Cassidy Arreola APRN.CNP Work Phone: Hematology/Oncology Start: 08-19-2023 End: 08-19-2023 ambulatory [place] [facility] Work Phone: Hematology/Oncology Comment on above: Rheumatoid arthritis involving multiple sites with positive rheumatoid factor (HCC) (Primary Dx); 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 Start: 07-15-2023 End: 07-15-2023 Patient encounter procedure Vikash Sylvester APRN.TRAINING PROGRAM DEVELOPER Work Phone: URO/Gynecology Comment on above: Recurrent UTI (Prima ry Dx); Vaginal atrophy Start: 07-04-2023 End: 07-04-2023 ambulatory Hamzah [facility] Start: 07-04-2023 End: 07-04-2023 Patient encounter procedure Thalia Monterroso MD Work Phone: Rheumatology Comment on above: Rheumatoid arthritis involving multiple sites, unspecified whether rheumatoid factor present (HCC) (Primary Dx); Osteopenia of multiple sites; Medication monitoring encounter; Long-term use of Plaquenil; Platelets decreased (HCC) SPP Inflammatory Con ditions - Treatment Referral (Humira ); Insurance Authorization ([place] approved) Start: 07-01-2023 Telephone encounter Cecilio Ibarra DO Work Phone: Cardiology Comment on above: Orders (Compression stockings) Start: 06-30-2023 End: 06-30-2023 Patient encounter procedure Stella Precaido PA-C Work Phone: Orthopaedics Comment on above: Primary osteoarthrit is of both knees (Primary Dx) Start: 06-30-2023 End: 06-30-[address] Galina Iraheta Work Phone: [facility] Work Phone: Start: 06-30-2023 End: 06-30-[address] Galina Iraheta Work Phone: [facility] Start: 06-18-2023 End: 06-18-2023 Patient encounter procedure Stella Preciado PA-C Work Phone: Orthopaedics Comment on above: Chronic pain of left knee (Primary Dx); Primary osteoarthritis of both knees Start: 06-18-2023 End: 06-18-2023 Subsequent hospital visit by physician Yulissa [facility] Work Phone: Radiology Comment on above: Primary osteoarthrit is of both knees [M17.0] Start: 06-16-2023 End: 06-16-2023 Patient encounter procedure Cecilio Ibarra DO Work Phone: Cardiology Comment on above: Rheumatic mitral reg urgitation (Primary Dx); Paroxysmal atrial fibrillation (HCC); Essential hypertension; Obstructive sleep apnea syndrome; Mixed hyperlipidemia; Shortness of breath; SVT (supraventricular tachycardia) (HCC) Start: 06-10-2023 Orders Only Stella garcia PA-C Work Phone: Orthopaedics Comment on above: Primary osteoarthrit is of both knees (Primary Dx) Start: 06-06-2023 End: 06-06-2023 Subsequent hospital visit by physician [facility] Work Phone: Radiology Comment on above: On prednisone therap y [Z79.52] Start: 06-02-2023 End: 06-02-[address] Galina Iraheta Work Phone: [facility] Work Phone: Start: 06-02-2023 End: 06-02-[address] 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 Galina Iraheta Work Phone: [facility] [facility] Work Phone: Start: 05-05-2023 End: 05-05-[address] Galina Iraheta Work Phone: [facility] Start: 04-28-2023 Telephone encounter hTalia Monterroso MD Work Phone: Rheumatology Comment on above: Patient Update Start: 04-24-2023 Telephone encounter Thalia Monterroso MD Work Phone: Rheumatology Comment on above: Pain Start: 03-31-2023 End: 03-31-[address] Galina Iraheta Work Phone: [facility] Work Phone: Start: 03-31-2023 End: 03-31-[address] Galina Iraheta Work Phone: [facility] Start: 03-24-2023 End: 03-24-[address] Galina Iraheta Work Phone: [facility] Work Phone: Start: 03-03-2023 End: 03-03-[address] Galina Iraheta Work Phone: [facility] Start: 02-19-2023 End: 02-19-[address] Galina Iraheta Work Phone: [facility] Work Phone: Start: 02-11-2023 End: 02-11-2023 ambulatory Cassidy Arreola APRN.TRAINING PROGRAM DEVELOPER Work Phone: Hematology/Oncology Comment on above: Personal history of breast cancer (Primary Dx); Iron deficiency anemia due to chronic blood loss Start: 02-11-2023 End: 02-11-2023 Patient encounter procedure Cassidy Arreola APRN.TRAINING PROGRAM DEVELOPER Work Phone: [facility] Start: 02-03-2023 End: 02-03-2023 ambulatory [facility] Work Phone: Start: 02-03-2023 End: 02-03-2023 Departed Referred [facility] Start: 01-29-2023 End: 01-29-[address] Galina Iraheta Work Phone: [facility] Work Phone: Start: 01-14-2023 End: 01-14-2023 ambulatory [facility] Work Phone: Hematology/Oncology Comment on above: Iron deficiency anem ia due to chronic blood loss (Primary Dx); Personal history of breast cancer; Malignant neoplasm of lower-inner quadrant of right breast of female, estrogen receptor positive (HCC) Start: 12-30-2022 End: 12-30-2022 ambulatory [facility] Work Phone: Start: 12-30-2022 End: 12-30-2022 Departed Referred [facility] Start: 12-19-2022 Telephone encounter Flaca Jasso DO Work Phone: Orthopaedics Comment on above: Last Office Visit No te Start: 12-17-2022 End: 12-17-2022 ambulatory [facility] Work Phone: Hematology/Oncology Comment on above: Iron deficiency anem ia due to chronic blood loss (Primary Dx) Start: 12-13-2022 End: 12-13-2022 Patient encounter procedure Juliet Gaffney APRN.CNP Work Phone: Cardiology Comment on above: Essential hypertensi on (Primary Dx); Paroxysmal atrial fibrillation (HCC) Start: 12-02-2022 End: 12-02-2022 Departed Referred [facility] Start: 11-26-2022 Telephone encounter Stella camejo PA-C Work Phone: Orthopaedics Start: 11-25-2022 End: 11-25-2022 Subsequent hospital visit by physician Xr [facility] Work Phone: Radiology Comment on above: Pain in right wrist [M25.531] Start: 11-25-2022 End: 11-25-2022 Patient encounter procedure Stella Preciado PA-C Work Phone: Orthopaedics Comment on above: Pain in right wrist (Primary Dx); Primary osteoarthritis of both knees; [facility] arthritis Start: 11-14-2022 Telephone encounter Jerrica Beltran APRN.TRAINING PROGRAM DEVELOPER Work Phone: Cardiology Comment on above: Appointment Cancelle d Start: 11-04-2022 End: 11-04-2022 Departed Referred [facility] Start: 11-04-[address] Galina Iraheta Work Phone: [facility] Start: 10-22-2022 End: 10-22-2022 ambulatory [facility] Work Phone: Hematology/Oncology Comment on above: Encounter for care r elated to vascular access port (Primary Dx) Start: 09-30-2022 End: 09-30-[address] Galina Iraheta Work Phone: [facility] Work Phone: Start: 09-30-2022 End: 09-30-[address] Galina Iraheta Work Phone: [facility] Start: 09-30-[address] Galina Iraheta Work Phone: [facility] Start: 09-24-2022 End: 09-24-2022 ambulatory [facility] Work Phone: Hematology/Oncology Comment on above: Encounter for care r elated to vascular access port (Primary Dx) Start: 09-20-2022 Telephone encounter Cecilio Ibarra DO Work Phone: Cardiology Comment on above: Results (CBC 09/19/22 - 2 week starting Eliquis) Start: 09-19-2022 End: 09-19-[address] Galina Iraheta Work Phone: [facility] Work Phone: Start: 09-19-2022 End: 09-19-[address] Galina Iraheta Work Phone: [facility] Start: 09-19-[address] Galina Iraheta Work Phone: [facility] Start: 09-05-2022 End: 09-05-2022 Patient encounter procedure Cecilio Alarcon Marilu DO Work Phone: Cardiology Comment on above: Paroxysmal atrial fi brillation (HCC) (Primary Dx); Rheumatic mitral regurgitation; Essential hypertension; Mixed hyperlipidemia; Obstructive sleep apnea syndrome; Shortness of breath; PAF (paroxysmal atrial fibrillation) (HCC); SVT (supraventricular tachycardia) (HCC) Start: 09-02-2022 End: 09-02-[address] Galina Iraheta Work Phone: [facility] Work Phone: Start: 09-02-2022 End: 09-02-[address] Galina Iraheta Work Phone: [facility] Start: 08-27-2022 End: 08-27-2022 ambulatory Cassidy Arreola APRN.CNP Work Phone: Hematology/Oncology Comment on above: Personal history of breast cancer (Primary Dx); Iron deficiency anemia due to chronic blood loss Start: 08-27-2022 End: 08-27-2022 Patient encounter procedure Cassidy Arreola APRN.CNP Work Phone: [facility] Start: 08-14-2022 End: 08-14-[address] Galina Iraheta Work Phone: [facility] Work Phone: Start: 07-29-2022 End: 07-29-[address] Galina Iraheta Work Phone: [facility] Start: 07-01-2022 End: 07-01-[address] Galina Iraheta Work Phone: [facility] Work Phone: Start: 07-01-2022 End: 07-01-[address] Galina Iraheta Work Phone: [facility] Start: 06-18-2022 End: 06-18-2022 ambulatory [facility] Work Phone: Hematology/Oncology Comment on above: Personal history of breast cancer (Primary Dx) Start: 06-11-2022 Telephone encounter Cassidy vizcaino APRN.TRAINING PROGRAM DEVELOPER Work Phone: Hematology/Oncology Comment on above: Results Start: 06-05-2022 End: 06-05-2022 Subsequent hospital visit by physician Xr [facility] Work Phone: Radiology Comment on above: Personal history of breast cancer [Z85.3] Start: 06-05-2022 End: 06-05-2022 ambulatory Cassidy Arreola APRN.TRAINING PROGRAM DEVELOPER Work Phone: Hematology/Oncology Comment on above: Personal history of breast cancer (Primary Dx); Rib pain on right side Start: 06-05-2022 End: 06-05-2022 Patient encounter procedure Cassidy Arreola APRN.TRAINING PROGRAM DEVELOPER Work Phone: [facility] Start: 06-03-2022 End: 06-03-[address] Galina Iraheta Work Phone: [facility] Work Phone: Start: 06-03-2022 End: 06-03-[address] Galina Iraheta Work Phone: [facility] Start: 06-03-[address] Galina Iraheta Work Phone: [facility] Start: 05-30-2022 End: 05-30-[address] Galina Iraheta Work Phone: [facility] Start: 05-30-2022 Telephone encounter Sal gutierrez DO Work Phone: Hematology/Oncology Comment on above: Patient Question Start: 05-06-2022 End: 05-06-[address] Galina Iraheta Work Phone: [facility] Work Phone: Start: 05-06-2022 End: 05-06-[address] Gailna Iraheta Work Phone: [facility] Start: 04-17-2022 End: 04-17-2022 ambulatory Treatment Rm [facility] Work Phone: Hematology/Oncology Comment on above: Iron deficiency anem ia due to chronic blood loss (Primary Dx); Iron malabsorption Start: 04-16-2022 Orders Only Sal Lux Work Phone: Hematology/Oncology Comment on above: Iron deficiency anem ia due to chronic blood loss (Primary Dx); Malignant neoplasm of lower-inner quadrant of right breast of female, estrogen receptor positive (HCC) Start: 04-15-2022 End: 04-15-2022 ambulatory Treatment Rm 2 [facility] Work Phone: Hematology/Oncology Comment on above: Iron deficiency anem ia due to chronic blood loss (Primary Dx); Iron malabsorption Start: 04-12-2022 End: 04-12-2022 ambulatory Treatment Rm 2 [facility] Work Phone: Hematology/Oncology Comment on above: Iron deficiency anem ia due to chronic blood loss (Primary Dx); Iron malabsorption Start: 04-10-2022 End: 04-10-2022 ambulatory Treatment Rm 3 [facility] Work Phone: Hematology/Oncology Comment on above: Iron deficiency anem ia due to chronic blood loss (Primary Dx); Iron malabsorption Start: 04-10-2022 Telephone encounter Starla Son RN He matology/Oncology Comment on above: Wire Strander - O 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 (Symptoms ) Start: 04-09-2022 End: 04-09-2022 Office outpatient visit 25 minutes Taty Perez APRN.TRAINING PROGRAM DEVELOPER Work Phone: Cardiology Comment on above: Chest pain, unspecif ied type (Primary Dx); Paroxysmal atrial fibrillation (HCC); Rheumatic mitral regurgitation; Essential hypertension; Mixed hyperlipidemia; Obstructive sleep apnea syndrome; Shortness of breath Start: 04-08-2022 End: 04-08-2022 ambulatory Treatment Rm 13 [facility] Work Phone: Hematology/Oncology Comment on above: Iron 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 Galina Iraheta Work Phone: [facility] Work Phone: Start: 04-01-2022 End: 04-01-[address] Galina Iraheta Work Phone: [facility] Start: 04-01-[address] Galina Iraheta Work Phone: [facility] Start: 03-28-2022 End: 03-28-[address] Galina Iraheta Work Phone: [facility] Start: 03-25-2022 End: 03-25-[address] Galina Iraheta Work Phone: [facility] Start: 03-24-2022 Telephone encounter Sal gutierrez DO Work Phone: Hematology/Oncology Comment on above: Results (CBC) Start: 03-22-2022 End: 03-22-2022 ambulatory [facility] Work Phone: Hematology/Oncology Comment on above: Iron deficiency anem ia due to chronic blood loss Start: 03-21-2022 Telephone encounter Sal gutierrez DO Work Phone: Hematology/Oncology Comment on above: Orders; Appointment Start: 03-14-2022 End: 03-14-2022 ambulatory [facility] Work Phone: Hematology/Oncology Comment on above: Malignant neoplasm o f lower-inner quadrant of right breast of female, estrogen receptor positive (HCC) (Primary Dx); Iron deficiency anemia due to chronic blood loss Start: 03-07-2022 End: 03-07-[address] Galina Iraheta Work Phone: [facility] Work Phone: Start: 03-07-2022 End: 03-07-[address] Galina Iraheat Work Phone: [facility] Start: 03-07-[address] Galina Iraheta Work Phone: [facility] Start: 03-06-2022 Telephone encounter Sal gutierrez DO Work Phone: Hematology/Oncology Comment on above: Returning Patient's Call Start: 03-06-2022 End: 03-06-2022 ambulatory Cassidy Arreola APRN.CNP Work Phone: Hematology/Oncology Comment on above: Malignant neoplasm o f lower-inner quadrant of right breast of female, estrogen receptor positive (HCC) (Primary Dx) Start: 03-06-2022 End: 03-06-2022 Patient encounter procedure Cassidy Arreola APRN.TRAINING PROGRAM DEVELOPER Work Phone: [facility] Start: 03-04-2022 End: 03-04-[address] Galina Iraheta Work Phone: [facility] Work Phone: Start: 03-04-2022 End: 03-04-[address] Galina Iraheta Work Phone: [facility] Start: 03-04-[address] Galina Iraheta Work Phone: [facility] Start: 02-21-2022 End: 02-21-[address] Galina Iraheta Work Phone: [facility] Work Phone: Start: 02-21-2022 End: 02-21-[address] Galina Iraheta Work Phone: [facility] Start: 02-21-[address] Galina Iraheta Work Phone: [facility] Start: 02-05-2022 End: 02-05-2022 ambulatory [facility] Work Phone: Hematology/Oncology Comment on above: Anemia, unspecified type (Primary Dx) Start: 02-04-2022 End: 02-04-[address] Galina Iraheta Work Phone: [facility] Work Phone: Start: 02-04-2022 End: 02-04-[address] Galina Iraheta Work Phone: [facility] Start: 02-04-[address] Galina Iraheta Work Phone: [facility] Start: 01-21-2022 End: 01-21-2022 Patient encounter procedure Stella Preciado PA-C Work Phone: Orthopaedics Comment on above: Primary osteoarthrit is of both knees (Primary Dx); Chronic pain of right knee Start: 01-17-2022 End: 01-17-[address] Galina Iraheta Work Phone: [facility] Work Phone: Start: 01-17-2022 End: 01-17-[address] Galina Iraheta Work Phone: [facility] Start: 01-17-[address] Galina Iraheta Work Phone: [facility] Start: 01-08-2022 End: 01-08-2022 ambulatory [facility] Work Phone: Hematology/Oncology Comment on above: Malignant neoplasm o f lower-inner quadrant of right breast of female, estrogen receptor positive (HCC) (Primary Dx) Start: 01-03-2022 End: 01-03-[address] Galina Iraheta Work Phone: [facility] Work Phone: Start: 01-03-2022 End: 01-03-[address] Galina Iraheta Work Phone: [facility] Start: 01-03-[address] Galina Iraheta Work Phone: [facility] Start: 01-02-2022 End: 01-02-2022 ambulatory BASILIA HERNÁNDEZ Facility:[facility] Start: 01-02-2022 End: 01-02-2022 Patient encounter procedure Basilia Hernández MD Work Phone: URO/Gynecology Comment on above: Recurrent UTI (Prima ry Dx); History of ESBL E. coli infection; Vaginal atrophy Start: 12-31-2021 End: 12-31-[address] Galina Iraheta Work Phone: [facility] Work Phone: Start: 12-31-2021 End: 12-31-[address] Galina Iraheta Work Phone: [facility] Start: 12-28-2021 End: 12-28-[address] Galina Iraheta Work Phone: [facility] Start: 12-28-2021 End: 12-28-2021 Emergency department patient visit Dr. Galina Iraheta Work Phone: [facility] Start: 12-27-2021 End: 12-27-[address] Galina Iraheta Work Phone: [facility] Work Phone: Start: 12-27-2021 End: 12-27-[address] Galina Iraheta Work Phone: [facility] Start: 12-27-[address] Galina Iraheta Work Phone: [facility] Start: 12-25-2021 Telephone encounter Cecilio Ibarra DO Work Phone: Cardiology Comment on above: Wire Strander - O ther Start: 12-24-2021 End: 12-24-[address] Galina Iraheta Work Phone: [facility] Start: 12-22-2021 End: 12-22-[address] Galina Iraheta Work Phone: [facility] Work Phone: Start: 12-22-2021 End: 12-22-[address] Galina Iraheta Work Phone: [facility] Start: 12-22-[address] Galina Iraheta Work Phone: [facility] Start: 12-21-2021 End: 12-21-[address] Galina Iraheta Work Phone: [facility] Start: 12-17-2021 End: 12-17-[address] Galina Iraheta Work Phone: [facility] Start: 12-17-2021 Registered Referred [facility] Start: 12-11-2021 End: 12-11-2021 ambulatory [facility] Work Phone: Hematology/Oncology Comment on above: Malignant neoplasm o f lower-inner quadrant of right breast of female, estrogen receptor positive (HCC) (Primary Dx) Start: 12-10-2021 End: 12-10-[address] Galina Iraheta Work Phone: [facility] Start: 12-10-2021 Registered Referred [facility] Start: 12-03-2021 End: 12-03-[address] Galina Iraheta Work Phone: [facility] Work Phone: Start: 12-03-2021 End: 12-03-[address] Galina Iraheta Work Phone: [facility] Start: 12-03-2021 Registered Referred [facility] Start: 11-26-2021 End: 11-26-2021 Departed Referred [facility] Start: 11-20-2021 End: 11-20-2021 ambulatory [facility] Work Phone: Start: 11-20-2021 End: 11-20-2021 Departed Referred [facility] Start: 11-13-2021 End: 11-13-2021 ambulatory [facility] Work Phone: Hematology/Oncology Comment on above: Malignant neoplasm o f lower-inner quadrant of right breast of female, estrogen receptor positive (HCC) (Primary Dx) Start: 11-05-2021 Telephone encounter Pharmacist [facility] Comment on above: PAC TRANSFER OF CARE Start: 10-29-2021 End: 10-29-2021 Departed Referred [facility] Start: 10-23-2021 Telephone encounter Nury uriarte Ambulatory [facility] Comment on above: Patient Question Start: 10-18-2021 Telephone encounter Galina caballero MD Work Phone: [facility] [place] Comment on above: Patient Update Start: 10-18-2021 End: 10-18-2021 Emergency department patient visit [facility] Start: 10-17-2021 Telephone encounter Galina caballero MD Work Phone: [facility] [place] Comment on above: Release Of Medical R ecords Start: 10-16-2021 Telephone encounter Tesha Manzo [facility] Comment on above: Anticoagulation Tele phone Fu (home INR ) Start: 10-16-2021 End: 10-16-2021 [facility]ulatory [facility] [facility] Work Phone: [facility] Start: 10-16-2021 End: 10-16-2021 Anticoagulant drug monitoring Lab/[facility] Work Phone: Hematology/Oncology Comment on above: Malignant neoplasm o f lower-inner quadrant of right breast of female, estrogen receptor positive (HCC) (Primary Dx); Chronic anticoagulation Start: 10-15-[address] [facility] Ambulatory [facility] Comment on above: Anticoagulation Tele phone Fu (Home INR Result) High INR/lab order Start: 10-11-2021 End: 10-11-2021 Patient encounter procedure Jeancarlos Hooker MD Work Phone: Infectious Disease Comment on above: Recurrent UTI; History of ESBL E. coli infection Start: 10-02-2021 Telephone encounter Tesha Manzo [facility] Ambulatory [facility] Comment on above: Anticoagulation Tele phone Fu (home INR ) Start: 09-26-2021 End: 09-26-2021 ambulatory BASILIA HERNÁNDEZ Facility:[facility] Start: 09-26-2021 End: 09-26-2021 Patient encounter procedure Basilia Hernández MD Work Phone: URO/Gynecology Comment on above: Recurrent UTI (Prima ry Dx); History of ESBL E. coli infection; Mixed stress and urge urinary incontinence Start: 09-19-2021 Telephone [address] Jerrica Rothman [facility] Ambulatory [facility] Comment on above: Anticoagulation Tele phone Fu (Home INR result) Start: 09-18-2021 End: 09-18-2021 Patient encounter procedure Cassidy Arreola APRN.CNP Work Phone: [facility] Start: 09-18-2021 End: 09-18-2021 ambulatory [facility] Work Phone: Hematology/Oncology Comment on above: Malignant neoplasm o f lower-inner quadrant of right breast of female, estrogen receptor positive (HCC) (Primary Dx) Start: 09-11-2021 Telephone encounter Pharmacist [facility] Comment on above: Anticoagulation Start: 09-11-2021 End: 09-11-2021 Patient encounter procedure Jayde Hebert MD Work Phone: OB/Gynecology Comment on above: Old laceration of ce rvix uteri (Primary Dx) Start: 09-10-2021 Telephone encounter Jayde Hebert MD Work Phone: OB/Gynecology Comment on above: Results Start: 09-06-2021 Telephone encounter Galina caballero MD Work Phone: [facility] [place] Comment on above: Patient Update Start: 09-05-2021 Telephone encounter Jer[facility] Ambulatory [facility] Comment on above: Anticoagulation Tele phone Fu (Home INR result) Start: 09-05-2021 End: 09-05-2021 Patient encounter procedure Cecilio Ibarra DO Work Phone: Cardiology Comment on above: Paroxysmal atrial fi brillation (HCC) (Primary Dx); Rheumatic mitral regurgitation; Essential hypertension; Mixed hyperlipidemia; Hyperglycemia; PAF (paroxysmal atrial fibrillation) (HCC); Shortness of breath; SVT (supraventricular tachycardia) (HCC) Start: 08-30-2021 ambulatory Jayde jackson MD Work Phone: OB/Gynecology Comment on above: Macrobid Start: 08-30-2021 End: 08-30-2021 Patient encounter procedure Jayde Hebert MD Work Phone: OB/Gynecology Comment on above: Recurrent UTI (Prima ry Dx); Mixed stress and urge urinary incontinence; Old laceration of cervix uteri Start: 08-28-2021 ambulatory Jayde jackson MD Work Phone: OB/Gynecology Comment on above: Pathology Start: 08-28-2021 E-mail encounter fro m caregiver Jayde Hebert MD Work Phone: [facility] Start: 08-28-2021 End: 08-28-2021 Patient encounter procedure Jayde Hebert MD Work Phone: OB/Gynecology Comment on above: Old laceration of ce rvix uteri (Primary Dx); Abnormal uterine bleeding (AUB) Start: 08-26-2021 End: 08-26-2021 Emergency department patient visit [facility] Start: 08-23-2021 ambulatory Jayde jackson MD Work Phone: OB/Gynecology Comment on above: PMB (postmenopausal bleeding) (Primary Dx); Endometrial thickening on ultrasound Start: 08-23-2021 Patient encounter procedure Jayde Hebert MD Work Phone: [facility] Start: 08-23-2021 End: 08-23-2021 Admission to same day surgery center [facility] Start: 08-22-2021 Telephone encounter [facility] Comment on above: Anticoagulation Tele phone Fu (Home INR result) Start: 08-17-2021 Telephone encounter Corinna Arenas RPh P [facility] Ambulatory [facility] Comment on above: Anticoagulation Tele phone Fu (INR Home Test Result) Start: 08-16-2021 Telephone encounter Jayde Hebert MD Work Phone: OB/Gynecology Comment on above: Schedule Surgery Start: 08-15-2021 End: 08-15-2021 Patient encounter procedure Jayde Hebert MD Work Phone: OB/Gynecology Comment on above: Acute cystitis witho ut hematuria (Primary Dx); PMB (postmenopausal bleeding); Endometrial thickening on ultrasound Start: 08-15-2021 Telephone encounter An Ta APRN.CNP Work Phone: [facility] [place] Comment on above: Results Start: 08-14-2021 Telephone encounter Nury Andres RPh P [facility] Ambulatory [facility] Comment on above: Anticoagulation Tele phone Fu (Home INR result) Start: 08-12-2021 ambulatory Daysi ELLIS SE CREDIT REVIEW ANALYST Comment on above: UTI Start: 08-10-2021 Telephone encounter An Ta APRN.TRAINING PROGRAM DEVELOPER Work Phone: [facility] [place] Comment on above: Results Start: 08-08-2021 End: 08-08-2021 Patient encounter procedure An Ta APRN.TRAINING PROGRAM DEVELOPER Work Phone: Internal Medicine [place] Comment on above: History of recent ho spitalization (Primary Dx); Dysuria; Recurrent UTI; Cirrhosis of liver with ascites, unspecified hepatic cirrhosis type (HCC); Biliary colic Start: 07-31-2021 Telephone encounter Nury Andres [facility] P harmacy Ambulatory Telemanagement Comment on above: Anticoagulation Tele phone Fu (Home INR result) Start: 07-27-2021 Telephone encounter Galina caballero MD Work Phone: Internal Medicine [place] Comment on above: Agree to follow; Ord ers Start: 07-24-2021 E-mail encounter fro m caregiver [facility] Provider IVAN RODAS [facility] Start: 07-24-2021 Patient encounter procedure [facility] Provider Orthopaedics Comment on above: Appointment Reschedu le Start: 07-24-2021 Telephone encounter Haley varghese PA-C Work Phone: Rheumatology Comment on above: Appointment Start: 07-24-2021 End: 07-24-2021 ambulatory [facility] [facility] Work Phone: Hematology/Oncology Comment on above: Malignant neoplasm o f lower-inner quadrant of right breast of female, estrogen receptor positive (HCC) (Primary Dx) Start: 07-23-2021 End: 07-23-2021 Departed Referred [facility] 300 Start: 07-23-2021 Registered Referred [place] [address] Start: 07-18-2021 Telephone encounter Marlin Ansari [facility]acy Ambulatory Telemanagement Comment on above: Anticoagulation Tele phone Fu Patient Update Start: 07-16-2021 End: 07-16-2021 Departed Referred [facility] 300 Start: 07-16-2021 Registered Referred [facility] 300 Start: 07-13-2021 End: 07-13-2021 Departed Referred [place] [address] Start: 07-10-2021 ambulatory Galina Singh Work Phone: Internal Medicine [place] Start: 07-06-2021 Telephone encounter Coreen haor MD Work Phone: Gastroenterology Comment on above: Results Start: 07-05-2021 Telephone encounter Galina caballero MD Work Phone: Family Medicine [place] Comment on above: Pain (back & legs / Pt update) Start: 07-05-2021 End: 07-05-2021 Patient encounter procedure Johnny Turk MD Work Phone: General Surgery Comment on above: Calculus of gallblad gary without cholecystitis without obstruction (Primary Dx); Secondary biliary cirrhosis (HCC) Start: 07-03-2021 Telephone encounter Johnny Turk MD Work Phone: General Surgery Comment on above: Patient Question (ga llbladder ER [facility]) Start: 07-03-2021 End: 07-03-2021 Patient encounter procedure Alma Ta APRN.TRAINING PROGRAM DEVELOPER Work Phone: Internal Medicine [place] Comment on above: Dysuria (Primary Dx) ; Right upper quadrant abdominal pain; Chronic anticoagulation Start: 07-02-2021 End: 07-03-2021 Emergency department patient visit [facility]Emergency Department Start: 06-26-2021 End: 06-26-2021 ambulatory [facility] [facility] Work Phone: Hematology/Oncology Comment on above: Malignant neoplasm o f lower-inner quadrant of right breast of female, estrogen receptor positive (HCC) (Primary Dx) Start: 06-22-2021 Telephone encounter Corinna Arenas [facility] P harmacy Ambulatory Telemanagement Comment on above: Anticoagulation Tele phone Fu (INR Home Test Result) Start: 06-20-2021 Telephone encounter Jerrica [facility] Ambulatory Telemanagement Comment on above: Anticoagulation Tele phone Fu (Home INR result) Start: 06-19-2021 Telephone encounter Basilia Cueto FISH HATCHERY WORKER.TRAINING PROGRAM DEVELOPER Work Phone: [facility] Comment on above: Results (urine cultu re) Start: 06-05-2021 End: 06-05-2021 Patient encounter procedure Aby Bruner DO Work Phone: Vascular Surgery Comment on above: Venous (peripheral) insufficiency (Primary Dx) Start: 05-23-2021 ambulatory Jerrica Tarcy [facility] Phar yisel Ambulatory Telemanagement Comment on above: INR in therapeutic r jeannine Start: 05-23-2021 E-mail encounter fro m caregiver Jerrica Rothman [facility] CC DD BUILDING Start: 05-17-2021 End: 05-17-2021 Subsequent hospital visit by physician Xr [facility] Work Phone: Radiology Comment on above: Cough [R05.9] Start: 05-17-2021 ambulatory [facility] RT(R) Radiology Comment on above: Results Start: 05-17-2021 Patient encounter procedure [facility] RT(R) [facility] [place] Start: 05-09-2021 ambulatory Jerrica Tarcy [facility] Ambulatory Telemanagement Comment on above: INR in therapeutic r jeannine Start: 05-09-2021 E-mail encounter fro m caregiver Jerrica Rothman [facility] CC DD BUILDING Start: 02-07-2021 Telephone encounter Galina caballero MD Work Phone: Internal Medicine [place] Comment on above: Medication Question Start: 11-27-2020 End: 11-27-2020 Subsequent hospital visit by physician Xr [facility] Work Phone: Radiology Comment on above: Fever, unspecified f ever cause [R50.9] Start: 05-05-2020 End: 05-05-2020 Subsequent hospital visit by physician Xr [facility] [place] Work Phone: Radiology Comment on above: Chronic cough [R05] Procedures Date Procedure Procedure Detail Performing Clinician Start: 08-13-2024 Plain x-ray of humerus Dr. Galina Iraheta MD Work Phone: Start: 08-13-2024 XR forearm, [address] Galina Iraheta MD Work Phone: Start: 08-06-2024 Computed tomography of abdomen and pelvis with contrast Dr. Galina Iraheta MD Work Phone: Start: 07-08-2024 [address]ium difficil e detection Dr. Galina Iraheta MD Work Phone: Start: 07-08-[address] Galina Iraheta MD Work Phone: Start: 07-08-[address] Galina Iraheta MD Work Phone: Start: 07-08-2024 Iadna-dna/rna gi pth gn multiplex probe tq 6-11 Dr. Galina Iraheta MD Work Phone: Start: 06-11-2024 Blood count complete auto&auto difrntl wbc Thalia Monterroso MD Work Phone: Start: 05-31-2024 Vitamin D, 25-hydrox y measurement Dr. Galina Iraheta MD Work Phone: Comment on above: Vitamin D StatusDefi ciency: <20 ng/mL (50nmol/L)Insufficiency: 20-30 ng/mL (50-75 nmol/L)Sufficiency: 30-100 ng/mL (75-250 nmol/L)Toxicity: >100 ng/mL (>250 nmol/L) Start: 05-13-2024 Urnls dip stick/tabl et reagent auto microscopy Dr. Galina Iraheta MD Work Phone: Start: 05-13-[address] Sergo Iraheta MD Work Phone: Start: 05-03-2024 Urnls dip stick/tabl et reagent auto microscopy Dr. Galina Iraheta MD Work Phone: Start: 05-03-[address] Sergo Iraheta MD Work Phone: Start: 05-03-2024 Measurement of renal function Dr. Galina Iraheta MD Work Phone: Comment on above: GFR Calc Start: 04-23-2024 Copper measurement, serum Dr. Galina Iraheta MD Work Phone: Comment on above: Detection Limit = 5P erformed at: [facility] [id number] [place], [place] [id number] Director: Jeremiah Bates MD, Phone: [phone] Start: 04-05-2024 Measurement of renal function Dr. Galina Iraheta MD Work Phone: Comment on above: GFR Calc Start: 04-05-2024 Percentage plasma ce ll count Dr. Galina Iraheat MD Work Phone: Start: 02-24-2024 Blood count complete auto&auto difrntl wbc Cassidy Arreola FISH HATCHERY WORKER.TRAINING PROGRAM DEVELOPER Work Phone: Start: 11-25-2023 Blood count complete auto&auto difrntl wbc Sal Mckeoni DO Work Phone: Start: 08-19-2023 Blood count complete auto&auto difrntl wbc Sal Mckeoni DO Work Phone: Start: 06-30-2023 Arthrocentesis aspir &/inj major jt/bursa w/o us Stella Vetovitz PA-C Work Phone: Start: 06-18-2023 Arthrocentesis aspir &/inj major jt/bursa w/o us Stella Vetovitz PA-C Work Phone: Start: 11-25-2022 Radex wrist complete minimum 3 views Stella Vetovitz PA-C Work Phone: Start: 11-25-2022 Arthrocentesis aspir &/inj major jt/bursa w/o us Stella Vetovitz PA-C Work Phone: Start: 09-05-2022 Ecg routine ecg w/le ast 12 lds i&r only [facility] Provider Start: 06-05-2022 Radex ribs unilatera l 2 views Cassidy Arreola FISH HATCHERY WORKER.TRAINING PROGRAM DEVELOPER Work Phone: Start: 03-22-2022 Blood count complete auto&auto difrntl wbc Sal Mckeoni DO Work Phone: Start: 03-14-2022 Comprehensive metabo lic panel Sal A Masci DO Work Phone: Start: 01-21-2022 Arthrocentesis aspir &/inj major jt/bursa w/o us Stella Preciado PA-C Work Phone: Start: 01-02-2022 Urnls dip stick/tabl et rgnt auto w/o microscopy Basilia Hernández MD Work Phone: Start: 10-18-2021 Plain chest X-ray Start: 10-16-2021 End: 10-16-2021 Blood count complete auto&auto difrntl wbc Galina Iraheta MD Work Phone: Start: 10-13-2021 Prothrombin time [facility] Pr ovider Start: 09-26-2021 Urnls dip stick/tabl et rgnt auto w/o microscopy Basilia Hernández MD Work Phone: Start: 08-30-2021 Urnls dip stick/tabl et rgnt auto w/o microscopy Jayde Hebert MD Work Phone: Start: 08-23-2021 Hysteroscopy,D&C Sym phion (Not Applicable) Start: 08-08-2021 Urnls dip stick/tabl et rgnt auto w/o microscopy An Ta APRN.TRAINING PROGRAM DEVELOPER Work Phone: Start: 07-03-2021 Computed tomography of abdomen and pelvis with intravenous contrast Start: 05-17-2021 Radiologic exam ches t 2 views Darline Hurley APRN.TRAINING PROGRAM DEVELOPER Work Phone: Start: 01-12-2021 Antibody screen Comment on above: Performed By: #### 5 7021-8 #### [facility] CLIA [id number] [address] [place] Start: 01-09-2021 Colonoscopy Aby encarnacion DO Work Phone: Start: 11-27-2020 Radiologic exam ches t 2 views Joann Haynes APRN.TRAINING PROGRAM DEVELOPER Work Phone: Start: 05-05-2020 Radiologic exam ches t 2 views Alma Shankar FISH HATCHERY WORKER.TRAINING PROGRAM DEVELOPER Work Phone: Measurement of occul t blood in stool specimen using immunoassay Urine culture Urine culture Dr. Galina caballero Work Phone: Plan of Treatment Date Care Activity Detail Author Start: 06-12-2027 Diabetes Screening Diabetes Screening [facility] Start: 02-23-2027 Diabetes Screening Diabetes Screening [facility] Start: 11-24-2026 Diabetes Screening Diabetes Screening [facility] Start: 07-03-2026 Diabetes Screening Diabetes Screening [facility] Start: 06-05-2025 Screening for osteoporosis Bone Density Screening [facility] Start: 03-14-2025 DIABETES SCREEN DIABETES SCREEN [facility] Start: 03-14-2025 Diabetes Screening Diabetes Screening [facility] Start: 11-15-2024 Influenza vaccination Influenza Vaccine (Season Ended) [facility] Start: 09-21-2024 End: 09-21-2024 ambulatory Hematology/Oncology Comment on above: 6 MO OV* CBC/IRON STUDIES(POR T)/OV TODAY Start: 08-27-2024 End: 08-27-2024 ambulatory 08/27/2024 10:00 AM EDT [facility] [address] [place], [place] [id number] Thalia Monterroso MD [facility] [place], [place] [id number] RA Rheumatology Comment on above: RA Start: 08-18-2024 XR forearm, 2 views Forearm 2 Views [facility] Start: 08-18-2024 XR Radius and Ulna 2 Views [facility] Start: 08-13-2024 Plain x-ray of humerus Humerus min 2 Views [facility] Start: 08-13-2024 XR forearm, 2 views Forearm 2 Views [facility] Start: 08-13-2024 XR Humerus GE 2 Views [facility] Start: 08-13-2024 XR Radius and Ulna 2 Views [facility] Start: 08-13-2024 DIABETES SCREEN DIABETES SCREEN [facility] Start: 08-06-2024 Venous catheter care management [facility] Start: 2024 DIABETES SCREEN DIABETES SCREEN [facility] Start: 07-11-2024 DIABETES SCREEN DIABETES SCREEN [facility] Start: 07-06-2024 DIABETES SCREEN DIABETES SCREEN [facility] Start: 07-05-2024 DIABETES SCREEN DIABETES SCREEN [facility] Start: 06-11-2024 End: 06-11-2024 ambulatory 06/11/2024 2:00 PM EDT Infusion Center Hematology/Oncology [address] [place] [address] Wstr, [facility]/[place] [facility] [address] [place] [address] port flush* Hematology/Oncology Comment on above: port flush* Start: 06-01-2024 End: 06-01-2024 Patient encounter procedure 06/01/2024 10:00 AM EDT Office Visit URO/Gynecology [address] [place] [address] Vikash Sylvester, FISH HATCHERY WORKER.TRAINING PROGRAM DEVELOPER [address] [place] [address] FOLLOWUP URO/Gynecology Comment on above: FOLLOWUP Start: 05-22-2024 DI[address]ES SCREEN DI[address]ETES SCREEN [facility] Start: 05-21-2024 End: 05-21-2024 Patient encounter procedure 05/21/2024 11:40 AM EST Office Visit Cardiology [address] [address] Annmarie Shell MD [address] [place] [address] follow up Cardiology Comment on above: follow up Start: 05-19-2024 End: 05-19-2024 ambulatory 05/19/2024 11:00 AM EST Infusion Center Hematology/Oncology [address] [place] [address] 2ND Hematology/Oncology Comment on above: 2ND Start: 03-25-2024 End: 03-25-2024 ambulatory 03/25/2024 10:00 AM EST Visit (SP) Office Hematology/Oncology [address] [place] [address] 2ND Hematology/Oncology Comment on above: 2ND Start: 03-24-2024 End: 03-24-2024 ambulatory 03/24/2024 11:00 AM EST Infusion Center Hematology/Oncology [address] [place] [address] 2ND Hematology/Oncology Comment on above: 2ND Start: 03-19-2024 End: 03-19-2024 Patient encounter procedure Radiology Comment on above: Bilateral hip pain [M25.551, M25.552] CT Pelvis/Chest/Abd Start: 03-19-2024 End: 03-19-2024 ambulatory 03/19/2024 9:30 AM EST Infusion Center Hematology/Oncology [address] [place] [address] Wstr, [facility] [facility] [address] [place] [address] CREATININE(S)(PORT)/KEEP ACCESSED FOR IMAGING* Hematology/Oncology Comment on above: CREATININE(S)(PORT)/KEEP ACCESSED FOR IM AGING* Start: 03-17-2024 Advance Directive Discussion Advance Directive Discussion [facility] Start: 03-12-2024 End: 03-12-2024 ambulatory 03/12/2024 2:30 PM EST Infusion Center Hematology/Oncology [address] [place] [address] 2nd Hematology/Oncology Comment on above: 2nd Start: 03-09-2024 End: 03-09-2024 Patient encounter procedure Cat Scan Comment on above: CT Pelvis/Chest/Abd Start: 03-08-2024 End: 03-08-2024 ambulatory 03/08/2024 3:00 PM EST Infusion Center Hematology/Oncology [address] [place] [address] 2nd Hematology/Oncology Comment on above: 2nd Start: 03-05-2024 End: 03-05-2024 ambulatory Rheumatology Comment on above: PRM f up 2nd Start: 03-03-2024 End: 03-03-2024 ambulatory 03/03/2024 3:00 PM EST Infusion Center Hematology/Oncology [address] [place] [address] 2nd Hematology/Oncology Comment on above: 2nd Start: 02-24-2024 End: 05-25-2024 CREATININE BLD CREATININE BLD Lab Routine Iron deficiency anemia due to chronic blood loss Bilateral hip pain Generalized abdominal pain Abdominal bloating Personal history of breast cancer Occult blood in stools Expected: 02/24/2024, Expires: 05/25/2024 [facility] Comment on above: Expected: 02/24/2024, Expires: Start: 02-24-2024 End: 02-24-2024 ambulatory Hematology/Oncology Comment on above: CBC/iron studies (PORT)/OV TODAY* 6MO OV Start: 02-16-2024 End: 02-16-2024 Patient encounter procedure 02/16/2024 2:00 PM EST Office Visit Cardiology [address] [id number] Annmarie Shell MD [address] [place], [place] [phone] follow up Cardiology Comment on above: follow up Start: 01-29-2024 End: 01-29-2024 ambulatory 01/29/2024 11:00 AM EST Visit (SP) Office Hematology/Oncology [address] [place] [address] 2ND Hematology/Oncology Comment on above: 2ND Start: 01-28-2024 End: 01-28-2024 ambulatory Hematology/Oncology Comment on above: 2ND Start: 12-16-2023 End: 12-16-2023 Patient encounter procedure 12/16/2023 2:20 PM EDT Office Visit Cardiology [address] [phone] Cecilio Ibarra DO [address] [place] [address] 6 month follow up Cardiology Comment on above: 6 month follow up Start: 12-04-2023 End: 12-04-2023 [facility] Hematology/Oncology Comment on above: Q8WK RENFLEXIS(PORT)/ORDERING PROV DR RA Pena/MDCR* 2ND Start: 11-25-2023 End: 02-24-2024 Ferritin [Mass/volume] in Serum or Plasma [facility] Comment on above: Expected: 11/25/2023, Expires: Start: 11-25-2023 End: 02-24-2024 Iron and Iron binding capacity panel - Serum or Plasma [facility] Work Phone: Comment on above: Expected: 11/25/2023, Expires: Start: 11-25-2023 End: 11-25-2023 ambulatory 11/25/2023 1:30 PM EDT Infusion Center Hematology/Oncology [address] [place] [address] Wstr, [facility] [facility] [address] [place] [address] CBC/iron studies (PORT)/OV TODAY* Hematology/Oncology Comment on above: CBC/iron studies (PORT)/OV TODAY* Start: 11-16-2023 Covid-19 Vaccine ( season) Covid-19 Vacc[address] () [facility] Start: 11-16-2023 Covid-19 Vaccine ( season) Covid-19 Vaccine ( season) [facility] Start: 11-16-[address] [facility] Start: 11-14-2023 End: 02-13-2024 25-hydroxyvitamin D3 [Mass/volume] in Serum or Plasma VITAMIN D 25 HYDROXY Lab Routine Rheumatoid arthritis involving multiple sites, unspecified whether rheumatoid factor present (HCC) Senile osteoporosis Expected: 11/14/2023, Expires: 02/13/2024 [facility] Work Phone: Comment on above: Expected: 11/14/2023, Expires: Start: 11-14-2023 End: 11-14-2023 ambulatory Rheumatology Comment on above: PRM f up Start: 10-09-2023 End: 10-09-2023 Infusion Center 10/09/2023 11:00 AM EDT Infusion Center Hematology/Oncology [address] [place] [address] Q6WK RENFLEXIS(PORT)/ORDERING PROV DR MONTERROSO/MDCR* THEN Q8WK Hematology/Oncology Comment on above: Q6WK RENFLEXIS(PORT)/ORDERING PROV DR RA Pena/MARCIALR* THEN Q8WK Start: 09-12-2023 End: 09-12-2023 ambulatory 09/12/2023 11:00 AM T Infusion Center Hematology/Oncology [address] [place] [address] daughter requested time Hematology/Oncology Comment on above: daughter requested time Start: 09-11-2023 End: 09-11-2023 Infusion Center 09/11/2023 9:00 AM [facility] Infusion Center Hematology/Oncology [address] [place] [address] Q2WK RENFLEXIS(PORT)/ORDERING PROV DR MONTERROSO/NISH* wk0,2,6,then q8wk Hematology/Oncology Comment on above: Q2WK RENFLEXIS(PORT)/ORDERING PROV DR RA Pena/NISH* wk0,2,6,then q8wk Start: 08-28-2023 End: 08-28-2023 Infusion Center 08/28/2023 11:00 AM [facility] Infusion Center Hematology/Oncology [address] [place] [address] START Q0WK RENFLEXIS(PORT)/ORDERING PROV DR MONTERROSO/NISH* wk0,2,6,then q8wk Hematology/Oncology Comment on above: START Q0WK RENFLEXIS(PORT)/ORDERING PROV DR MONTERROSO/NISH* wk0,2,6,then q8wk Start: 08-19-2023 End: 08-19-2023 ambulatory Hematology/Oncology Comment on above: CBC/iron studies (PORT)/OV TODAY* 6MO OV(PORT)/LABS EA RLY* Start: 07-04-2023 End: 10-03-2023 BLOOD TB SCREEN [facility] Work Phone: Comment on above: Expected: 07/04/2023, Expires: Start: 07-04-2023 End: 10-03-2023 Chronic hepatitis differentiation between hepatitis B and C virus panel - Serum or Plasma [facility] Work Phone: Comment on above: Expected: 07/04/2023, Expires: 4 Start: 07-04-2023 End: 10-03-2023 Cyclic citrullinated peptide IgG Ab [Units/volume] in Serum or Plasma [facility] Work Phone: Comment on above: Expected: 07/04/2023, Expires: Start: 05-20-2023 End: 08-19-2023 CBC W Auto Differential panel - Blood CBC + DIFF Lab STAT Malignant neoplasm of lower-inner quadrant of right breast of female, estrogen receptor positive (HCC) Iron deficiency anemia due to chronic blood loss Expected: 05/20/2023, Expires: 08/19/2023 [facility] Work Phone: Comment on above: Expected: 05/20/2023, Expires: Start: 05-20-2023 End: 08-19-2023 Ferritin [Mass/volume] in Serum or Plasma FERRITIN BLD Lab Routine Malignant neoplasm of lower-inner quadrant of right breast of female, estrogen receptor positive (HCC) Iron deficiency anemia due to chronic blood loss Expected: 05/20/2023, Expires: 08/19/2023 [facility] Work Phone: Comment on above: Expected: 05/20/2023, Expires: Start: 05-20-2023 End: 08-19-2023 Iron and Iron binding capacity panel - Serum or Plasma IRON + TIBC Lab Routine Malignant neoplasm of lower-inner quadrant of right breast of female, estrogen receptor positive (HCC) Iron deficiency anemia due to chronic blood loss Expected: 05/20/2023, Expires: 08/19/2023 [facility] Work Phone: Comment on above: Expected: 05/20/2023, Expires: Start: 03-17-2023 Advance Directive Discussion Advance Directive Discussion [facility] Start: 11-17-[address] [facility] Start: 11-15-2022 Covid-19 Vaccine () Covid-19 Vacc[address] () [facility] Start: 11-15-[address] [facility] Start: 09-19-2022 End: 11-19-2022 CBC panel - Blood by Automated count CBC Lab Routine Paroxysmal atrial fibrillation (HCC) Rheumatic mitral regurgitation Essential hypertension Mixed hyperlipidemia Obstructive sleep apnea syndrome Shortness of breath PAF (paroxysmal atrial fibrillation) (HCC) SVT (supraventricular tachycardia) (HCC) Expected: 09/19/2022, Expires: 11/19/2022 [facility] Work Phone: Comment on above: Expected: 09/19/2022, Expires: 3 Start: 04-17-2022 End: 06-17-2022 CBC W Auto Differential panel - Blood CBC + DIFF Lab STAT Iron deficiency anemia due to chronic blood loss Malignant neoplasm of lower-inner quadrant of right breast of female, estrogen receptor positive (HCC) Expected: 04/17/2022, Expires: 06/17/2022 [facility] Work Phone: Comment on above: Expected: 04/17/2022, Expires: 3 Start: 04-17-2022 End: 06-17-2022 Ferritin [Mass/volume] in Serum or Plasma FERRITIN BLD Lab Routine Iron deficiency anemia due to chronic blood loss Malignant neoplasm of lower-inner quadrant of right breast of female, estrogen receptor positive (HCC) Expected: 04/17/2022, Expires: 06/17/2022 [facility] Work Phone: Comment on above: Expected: 04/17/2022, Expires: 3 Start: 04-17-2022 End: 06-17-2022 Iron and Iron binding capacity panel - Serum or Plasma IRON + TIBC Lab Routine Iron deficiency anemia due to chronic blood loss Malignant neoplasm of lower-inner quadrant of right breast of female, estrogen receptor positive (HCC) Expected: 04/17/2022, Expires: 06/17/2022 [facility] Work Phone: Comment on above: Expected: 04/17/2022, Expires: 3 Start: 04-17-2022 End: 06-17-2022 RETIC COUNT RETIC COUNT Lab Routine Iron deficiency anemia due to chronic blood loss Malignant neoplasm of lower-inner quadrant of right breast of female, estrogen receptor positive (HCC) Expected: 04/17/2022, Expires: 06/17/2022 [facility] Work Phone: Comment on above: Expected: 04/17/2022, Expires: 3 Start: 04-17-2022 End: 06-17-2022 Transferrin receptor.soluble [Mass/volume] in Serum or Plasma [employer]UBLE [employer] RECEPTOR Lab Routine Iron deficiency anemia due to chronic blood loss Malignant neoplasm of lower-inner quadrant of right breast of female, estrogen receptor positive (HCC) Expected: 04/17/2022, Expires: 06/17/2022 [facility] Work Phone: Comment on above: Expected: 04/17/2022, Expires: 3 Start: 03-17-2022 ADVANCE DIRECTIVE DISCUSSION ADVANCE DIRECTIVE DISCUSSION [facility] Start: 03-12-2022 End: 05-12-2022 CBC W Ordered Manual Differential panel - Blood PATHOLOGIST INTERPRETATION WITH CBC AND DIFF Lab Routine Iron deficiency anemia due to chronic blood loss Expected: 03/12/2022, Expires: 05/12/2022 [facility] Work Phone: Comment on above: Expected: 03/12/2022, Expires: 3 Start: 03-06-2022 Administration of blood product [facility] Start: 03-06-2022 [facility] Start: 01-09-[address] [facility] Start: 01-09-2022 Screening for malignant neoplasm of colon Colonoscopy [facility] Start: 12-28-2021 Administration of blood product [facility] Start: 11-15-2021 Influenza vaccination INFLUENZA (#1) [facility] Start: 10-29-2021 End: 12-29-2021 CBC W Auto Differential panel - Blood CBC + DIFF Lab Routine BRBPR (bright red blood per rectum) Expected: 10/29/2021, Expires: 12/29/2021 [facility] Work Phone: Comment on above: Expected: 10/29/2021, Expires: 2 Start: 10-18-2021 [facility] Work Phone: Start: 10-18-2021 Administration of blood product [facility] Work Phone: Start: 10-18-2021 [facility] Work Phone: Start: 10-15-2021 End: 12-15-2021 CBC W Auto Differential panel - Blood CBC + DIFF Lab Routine Chronic anticoagulation Expected: 10/15/2021, Expires: 12/15/2021 [facility] Work Phone: Comment on above: Expected: 10/15/2021, Expires: 2 Start: 10-15-2021 End: 12-15-2021 PT panel - Platelet poor plasma by Coagulation assay PROTHROMBIN TIME/PT Lab Routine Chronic anticoagulation Expected: 10/15/2021, Expires: 12/15/2021 [facility] Work Phone: Comment on above: Expected: 10/15/2021, Expires: 2 Start: 08-23-2021 Anes hysteroscopy&/hysterosal pingography w/bx ANESTH HYSTEROSCOPE/GRAPH [facility] Work Phone: Start: 08-23-2021 Hysteroscopy bx endometrium&/polypc w/wo d&c HYSTEROSCOPY BIOPSY [facility] Work Phone: Start: 08-23-2021 Patient discharge [facility] Work Phone: Start: 08-23-2021 Ambulation without limitation [facility] Work Phone: Start: 08-23-2021 Medical regimen orders management [facility] Work Phone: Start: 08-23-2021 Medication education [facility] Work Phone: Start: 08-23-2021 Taking patient vital signs [facility] Work Phone: Start: 08-23-2021 Vital signs measurements [facility] Work Phone: Start: 08-23-2021 [facility] Work Phone: Start: 08-10-2021 End: 10-10-2021 Bacteria identified in Urine by Culture URINE CULTURE Microbiology Routine Dysuria Expected: 08/10/2021, Expires: 10/10/2021 [facility] Work Phone: Comment on above: Expected: 08/10/2021, Expires: 2 Start: 04-18-2021 Screening for malignant neoplasm of cervix Cervical Cancer Screening [facility] Start: 03-24-2021 COVID-19 VACCINE (4 - Booster for Moderna series) COVID-19 VACCINE (4 - Booster for Moderna series) [facility] Start: 03-17-2021 ADVANCE DIRECTIVE DISCUSSION ADVANCE DIRECTIVE DISCUSSION [facility] Start: 01-17-2021 COVID-19 VACCINE (4 - Booster for Moderna series) COVID-19 VACCINE (4 - Booster for Moderna series) [facility] Start: 01-17-2021 COVID-19 VACCINE (4 - Moderna series) COVID-19 VACCINE (4 - Moderna series) [facility] Start: 08-02-2011 Shingrix Vaccine (1 of 2) Shingrix Vaccine (1 of 2) [facility] Start: 08-02-2011 SHINGRIX VACCINE (2 of 3) SHINGRIX VACCINE (2 of 3) [facility] Start: 07-13-2011 RSV Vaccine (1 - 1-dose 75+ series) RSV Vaccine (1 - 1-dose 75+ series) [facility] Start: 09-15-2003 Medicare Annual Wellness Visit Medicare Annual Wellness Visit [facility] Start: 1996 HEPATITIS B (1 of 3 - Risk 3-dose series) HEPATITIS B (1 of 3 - Risk 3-dose series) [facility] Start: 1996 Hepatitis B Vaccine (1 of 3 - Risk 3-dose series) Hepatitis B Vaccine (1 of 3 - Risk 3-dose series) [facility] Start: 1996 RSV Vaccine (1 - 1-dose 60+ series) RSV Vaccine (1 - 1-dose 60+ series) [facility] Start: 07-13-1955 HEPATITIS A (1 of 2 - Risk 2-dose series) HEPATITIS A (1 of 2 - Risk 2-dose series) [facility] Start: 07-13-1955 Hepatitis A Vaccine (1 of 2 - Risk 2-dose series) Hepatitis A Vaccine (1 of 2 - Risk 2-dose series) [facility] Start: 07[birth year]13-1955 HEPATITIS B (1 of 3 - Risk 3-dose series) HEPATITIS B (1 of 3 - Risk 3-dose series) [facility] Start: 1954 Anxiety Screening Anxiety Screening [facility] Start: 1937 HEPATITIS A (1 of 2 - Risk 2-dose series) [facility] 25-hydroxyvitamin D3 [Mass/volume] in Serum or Plasma VITAMIN D 25 HYDROXY Lab Routine Rheumatoid arthritis involving multiple sites, unspecified whether rheumatoid factor present (HCC) Senile osteoporosis 11/25/2023 1:46 PM EDT [facility] Work Phone: Bacteria identified in Urine by Culture URINE CULTURE Microbiology Routine Dysuria Ordered: 08/08/2021 [facility] Work Phone: Comment on above: Ordered: 08/08/2021 Bacteria identified in Urine by Culture URINE CULTURE Microbiology Routine Recurrent UTI Mixed stress and urge urinary incontinence 08/30/2021 2:06 PM EDT [facility] Work Phone: End: 09-26-2022 Bacteria identified in Urine by Culture URINE CULTURE Microbiology Routine Recurrent UTI 12 Occurrences starting 09/26/2021 until 09/26/2022 [facility] Work Phone: Comment on above: 12 Occurrences starting 09/26/2021 until 09/26/2022 Bacteria identified in Urine by Culture Urine Culture [facility] Work Phone: End: 11-13-2024 C reactive protein [Mass/volume] in Serum or Plasma C-REACTIVE PROTEIN Lab Routine Rheumatoid arthritis involving multiple sites, unspecified whether rheumatoid factor present (HCC) Senile osteoporosis Every 3 months for 5 Occurrences starting 11/14/2023 until 11/13/2024 [facility] Comment on above: Every 3 months for 5 Occurrences startin g 11/14/2023 until 11/13/2024 C reactive protein [Mass/volume] in Serum or Plasma C-REACTIVE PROTEIN Lab Routine Rheumatoid arthritis involving multiple sites, unspecified whether rheumatoid factor present (HCC) Senile osteoporosis 11/25/2023 1:[address] [facility] C reactive protein [Mass/volume] in Serum or Plasma C-REACTIVE PROTEIN Lab Routine Rheumatoid arthritis involving multiple sites, unspecified whether rheumatoid factor present (HCC) Senile osteoporosis 02/24/2024 1:28 PM SARAH [facility] Work Phone: C reactive protein [Mass/volume] in Serum or Plasma C-REACTIVE PROTEIN Lab Routine Rheumatoid arthritis involving multiple sites, unspecified whether rheumatoid factor present (HCC) Senile osteoporosis 06/11/2024 1:[address] [facility] End: 11-13-2024 CBC W Auto Differential panel - Blood COMPLETE BLOOD COUNT AND DIFFERENTIAL Lab Routine Rheumatoid arthritis involving multiple sites, unspecified whether rheumatoid factor present (HCC) Senile osteoporosis Every 3 months for 5 Occurrences starting 11/14/2023 until 11/13/2024 [facility] Comment on above: Every 3 months for 5 Occurrences startin g 11/14/2023 until 11/13/2024 End: 11-13-2024 Comprehensive metabolic 2000 panel - Serum or Plasma COMPREHENSIVE METABOLIC PANEL Lab Routine Rheumatoid arthritis involving multiple sites, unspecified whether rheumatoid factor present (HCC) Senile osteoporosis Every 3 months for 5 Occurrences starting 11/14/2023 until 11/13/2024 [facility] Comment on above: Every 3 months for 5 Occurrences startin g 11/14/2023 until 11/13/2024 End: 03-25-2025 CT Abdomen and Pelvis W contrast IV CT ABD/PEL W IVCON Radiology Routine Iron deficiency anemia due to chronic blood loss Bilateral hip pain Generalized abdominal pain Abdominal bloating Personal history of breast cancer Occult blood in stools 1 Occurrences starting 02/24/2024 until 03/25/2025 [facility] Comment on above: 1 Occurrences starting 02/24/2024 until 03/25/2025 CT Abdomen and Pelvi s W contrast IV CT ABD/PEL W IVCON Radiology Routine Iron deficiency anemia due to chronic blood loss Bilateral hip pain Generalized abdominal pain Abdominal bloating Personal history of breast cancer Occult blood in stools 03/19/2024 11:42 AM EST [facility] Work Phone: End: 03-25-2025 CT Chest W contrast IV CT CHEST W IVCON Radiology Routine Iron deficiency anemia due to chronic blood loss Bilateral hip pain Generalized abdominal pain Abdominal bloating Personal history of breast cancer Occult blood in stools 1 Occurrences starting 02/24/2024 until 03/25/2025 [facility] Comment on above: 1 Occurrences starting 02/24/2024 until 03/25/2025 CT Chest W contrast IV CT CHEST W IVCON Radiology Routine Iron deficiency anemia due to chronic blood loss Bilateral hip pain Generalized abdominal pain Abdominal bloating Personal history of breast cancer Occult blood in stools 03/19/2024 11:[address] [facility] DXA Skeletal system.axial Views for bone density DXA-AXIAL SKELETON Radiology Routine On prednisone therapy Screening for osteoporosis 06/06/2023 2:38 PM EDT [facility] Work Phone: End: 09-05-2022 ECG COMPLETE [facility] Work Phone: Comment on above: 1 Occurrences starting 09/05/2021 until 09/05/2022 End: 11-13-2024 Erythrocyte sedimentation rate SEDIMENTATION RATE, WESTERGREN Lab Routine Rheumatoid arthritis involving multiple sites, unspecified whether rheumatoid factor present (HCC) Senile osteoporosis Every 3 months for 5 Occurrences starting 11/14/2023 until 11/13/2024 [facility] Comment on above: Every 3 months for 5 Occurrences startin g 11/14/2023 until 11/13/2024 Erythrocyte sedimentation rate SEDIMENTATION RATE, WESTERGREN Lab Routine Rheumatoid arthritis involving multiple sites, unspecified whether rheumatoid factor present (HCC) Senile osteoporosis 06/11/2024 1:54 PM EDT [facility] Work Phone: Ferritin [Mass/volum e] in Serum or Plasma FERRITIN Lab Routine Malignant neoplasm of lower-inner quadrant of right breast of female, estrogen receptor positive (HCC) Iron deficiency anemia due to chronic blood loss 02/24/2024 1:28 PM EST [facility] Work Phone: Iron and Iron bindin g capacity panel - Serum or Plasma IRON AND TIBC Lab Routine Malignant neoplasm of lower-inner quadrant of right breast of female, estrogen receptor positive (HCC) Iron deficiency anemia due to chronic blood loss 02/24/2024 1:[address] [facility] OCCULT BLD EXAM-DIAG OCCULT BLD EXAM-DIAG Microbiology Routine Iron deficiency anemia due to chronic blood loss Ordered: 03/12/2022 [facility] Work Phone: Comment on above: Ordered: 03/12/2022 PATHOLOGIST INTERPRETATION CBC/DIFF PATHOLOGIST INTERPRETATION CBC/DIFF Lab STAT Iron deficiency anemia due to chronic blood loss 03/22/2022 1:[address] [facility] [employer] Work Phone: Patient Education [facility] Work Phone: Patient referral [facility] Work Phone: PT panel - Platelet poor plasma by Coagulation assay PROTHROMBIN TIME/PT Lab Routine Chronic anticoagulation 10/16/2021 9:[address] [facility] [employer] Work Phone: Urinalysis complete panel - Urine [facility] [employer] Work Phone: End: 03-25-2025 XR HIP BILATERAL 5V PEL/AP/LAT EACH HIP XR HIP BILATERAL 5V PEL/AP/LAT EACH HIP Radiology Routine Bilateral hip pain 1 Occurrences starting 02/24/2024 until 03/25/2025 [facility] [employer] Work Phone: Comment on above: 1 Occurrences starting 02/24/2024 until 03/25/2025 XR HIP BILATERAL 5V PEL/AP/LAT EACH HIP XR HIP BILATERAL 5V PEL/AP/LAT EACH HIP Radiology Routine Bilateral hip pain 03/19/2024 10:[address] [employer] [facility] [employer] Work Phone: End: 07-09-2024 XR Knee - bilateral 4 Views XR KNEE GENERAL 4V AP BOTH/PA BOTH/LAT/MERC BILATERAL Radiology Routine Primary osteoarthritis of both knees 1 Occurrences starting 06/10/2023 until 07/09/2024 [facility] [employer] Work Phone: Comment on above: 1 Occurrences starting 06/10/2023 until 07/09/2024 XR Knee - bilateral 4 Views XR KNEE GENERAL 4V AP BOTH/PA BOTH/LAT/MERC BILATERAL Radiology Routine Primary osteoarthritis of both knees 06/18/2023 8:[address] [facility] [employer] Work Phone: End: 07-05-2023 XR RIBS 2V AP/OBL RIGHT XR RIBS 2V AP/OBL RIGHT Radiology Routine Personal history of breast cancer Rib pain on right side 1 Occurrences starting 06/05/2022 until 07/05/2023 [facility] Work Phone: Comment on above: 1 Occurrences starting 06/05/2022 until 07/05/2023 XR RIBS 2V AP/OBL RIGHT XR RIBS 2V AP/OBL RIGHT Radiology Routine Personal history of breast cancer Rib pain on right side 06/05/2022 12:04 PM EDT [facility] Work Phone: End: 12-25-2023 XR WRIST GENERAL 3V PA/LAT/OBL RIGHT XR WRIST GENERAL 3V PA/LAT/OBL RIGHT Radiology Routine Pain in right wrist 1 Occurrences starting 11/25/2022 until 12/25/2023 [facility] Work Phone: Comment on above: 1 Occurrences starting 11/25/2022 until 12/25/2023 XR WRIST GENERAL 3V PA/LAT/OBL RIGHT XR WRIST GENERAL 3V PA/LAT/OBL RIGHT Radiology Routine Pain in right wrist 11/25/2022 2:29 PM EDT [facility] Work Phone: [facility] Immunizations Immunization Date Immunization Notes Care Provider Kevin evans 01-18-2021 influenza, high-dose , quadrivalent vaccine (FLUZONE HIGH DOSE QUADRIVALENT) Aby Bruner DO Work Phone: [facility] Work Phone: 01-18-2021 influenza virus vaccine, unspecified formulation Stella Preciado PA-C Work Phone: [facility] 11-22-2020 COVID-19 vaccine, ag e 12+ yr ([employer] - PURPLE TOP) Aby Bruner DO Work Phone: [facility] 05-04-2020 COVID-19 vaccine, fu ll dose (MODERNA) Aby Bruner DO Work Phone: [facility] 04-06-2020 COVID-19 vaccine, fu ll dose (MODERNA) Aby Bruner DO Work Phone: [facility] 12-18-2019 influenza, high-dose , quadrivalent vaccine (FLUZONE HIGH DOSE QUADRIVALENT) Aby Bruner DO Work Phone: [facility] 12-30-2018 influenza, high dose seasonal, preservative-free Aby Bruner DO Work Phone: [facility] Work Phone: 12-09-2017 influenza, high dose seasonal, preservative-free Aby Bruner DO Work Phone: [facility] 12-02-2016 influenza, high dose seasonal, preservative-free Aby Bruner DO Work Phone: [facility] Work Phone: 12-05-2015 influenza, high dose seasonal, preservative-free Aby Bruner DO Work Phone: [facility] 01-10-2015 pneumococcal conjuga te vaccine, 13 valent Aby Bruner DO Work Phone: [facility] Work Phone: 12-12-2014 influenza, high dose seasonal, preservative-free Aby Bruner DO Work Phone: [facility] 12-22-2013 influenza, seasonal, injectable Aby Bruner DO Work Phone: [facility] 01-09-2013 influenza virus vaccine, unspecified formulation Aby Bruner DO Work Phone: [facility] Work Phone: 11-17-2012 tetanus toxoid, redu issac diphtheria toxoid, and acellular pertussis vaccine, adsorbed Aby Bruner DO Work Phone: [facility] 01-16-2012 influenza virus vaccine, unspecified formulation Aby Bruner DO Work Phone: [facility] 06-07-2011 zoster vaccine, live Opal Bruner DO Work Phone: [facility] 02-01-2011 influenza virus vaccine, unspecified formulation Aby Bruner DO Work Phone: [facility] Work Phone: 01-29-2010 influenza virus vaccine, unspecified formulation Aby Bruner DO Work Phone: [facility] 12-24-2008 influenza virus vaccine, unspecified formulation Aby Bruner DO Work Phone: [facility] 01-20-2008 influenza virus vaccine, unspecified formulation Aby Bruner DO Work Phone: [facility] 12-21-2007 pneumococcal polysaccharide vaccine, 23 valent Aby Bruner DO Work Phone: [facility] Work Phone: 01-14-2007 influenza virus vaccine, unspecified formulation Aby Bruner DO Work Phone: [facility] Work Phone: 01-27-2006 influenza virus vaccine, unspecified formulation Aby Bruner DO Work Phone: [facility] 01-24-2005 influenza virus vaccine, unspecified formulation Aby Bruner DO Work Phone: [facility] Work Phone: 05-15-2002 tetanus and diphther ia toxoids, adsorbed, preservative free, for adult use (2 Lf of tetanus toxoid and 2 Lf of diphtheria toxoid) Aby Bruner DO Work Phone: [facility] Work Phone: NEGATED: Highlighted row has not occurred!01-12-2021 influenza, high-dose, quadrivalent vaccine (FLUZONE HIGH DOSE QUADRIVALENT) Aby Bruner DO Work Phone: [facility] Comment on above: Deferred: Patient Re fused - states she wants to wait to get it at scheduled appt in [facility] Payers Date Payer Category Payer Medicaid [id number] 2024 Medicaid [place]ICAID [place] [id number] 2023 Self-pay [id number] 2016 [facility] [id number] 2016 Unknown ANTHEM ANTHEM ME DICARE SUPPLEMENT [id number] 2016-Present [phone] [address] [place] [address] Indemnity [id number] 2016 Unknown ANTHEM ANTHEM ME DICARE SUPPLEMENT [id number] 2016-Present [phone] [address] [place] [address] Indemnity [id number] 2003 Medicare MEDICARE MEDICAR E A AND B [id number] 2003-Present [phone] [address] [address] [place] [address] Medicare [id number] 2003 Medicare [id number] 2003 Unknown [id number] 2003 Medicare [id number] Unknown [id number]. 462 Unknown [id number]. 462 Unknown [id number] 2.840.1.863821.3.579.2. 462 Unknown [id number] 2.840.1.992334.3.579.2. 462 Unknown [id number] 2.16.840.1.446612.3.579.2. 462 Unknown [id number] 2.16.840.1.280379.3.579.2. 462 Unknown [id number] 2.16.840.1.901532.3.579.2. 462 Unknown [id number] 2.16.840.1.296459.3.579.2. 462 Unknown [id number] 2.16.840.1.960854.3.579.2. 462 Unknown [id number] 2..840.1.187626.3.579.2. 462 Unknown [id number] 2.840.1.067665.3.579.2. 462 Unknown [id number] 2.840.1.316127.3.579.2. 462 Unknown [id number] 2.840.1.997481.3.579.2. 462 Unknown [id number] 2.840.1.611293.3.579.2. 462 Unknown [id number] 2.840.1.908443.3.579.2. 462 Unknown [id number] 2.840.1.990252.3.579.2. 462 Unknown [id number] 2.840.1.119982.3.579.2. 462 Unknown [id number] 2.840.1.177836.3.579.2. 462 Unknown [id number] 2.840.1.606213.3.579.2. 462 Unknown [id number] 2.16.840.1.633369.3.579.2. 462 Unknown [id number] 2.16.840.1.981811.3.579.2. 462 Unknown [id number] 2.16.840.1.532146.3.579.2. 462 Unknown [id number] 2.840.1.245779.3.579.2. 462 Unknown [id number] 2.16.840.1.126787.3.579.2. 462 Unknown [id number] 2.16.840.1.241641.3.579.2. 462 Unknown [id number] 2.16.840.1.339845.3.579.2. 462 Unknown [id number] 2.16.840.1.036801.3.579.2. 462 Unknown [id number] 2.16.840.1.135842.3.579.2. 462 Unknown [id number] 2.16.840.1.010908.3.579.2. 462 Unknown [id number] 2.16.840.1.029365.3.579.2. 462 Unknown [id number] 2.16.840.1.473459.3.579.2. 462 Unknown [id number] 2.16.840.1.017134.3.579.2. 462 Social History Date Type Detail Facility Start: 01-02-2022 End: 08-13-2024 Tobacco smoking status NHIS Never smoked tobacco [facility] Start: 06-05-2021 End: 02-27-2024 Alcohol intake Current non-drinker of alcohol (finding) [facility] Start: 01-23-2020 End: 01-18-2021 History SDOH Alcohol Frequency 1 [facility] Start: 01-23-2020 History SDOH Social Connections Phone 5 [facility] Start: 01-23-2020 History SDOH Social Connections Get Together 98 [facility] Start: 01-23-2020 History SDOH Social Connections Living 3 [facility] Start: 01-23-2020 End: 01-18-2021 History SDOH Stress 2 [facility] Start: 01-23-[address] [facility] Start: 1935 Sex Assigned At Female [facility] Work Phone: Start: 04-05-2020 End: 01-21-2022 Exposure to SARS-CoV-2 (event) Not sure [facility] Start: 06-09-2021 End: 08-08-2021 Exposure to SARS-CoV-2 (event) Unable to assess [facility] Work Phone: Start: 07-03-2021 End: 04-07-2023 Tobacco smoking status NHIS Unknown if ever smoked [facility] Start: 02-15-2021 None [facility] Start: 02-15-2021 Non-smoker [facility] Start: 01-02-2022 Tobacco use and exposure Smokeless tobacco non-user [facility] Start: 01-23-2020 End: 07-15-2023 History of Social function [facility] Start: 01-23-2020 End: 07-15-2023 Social connection and isolation panel [facility] How often do you get together with friends or relatives? Patient refused [facility] Are you now , , , , never or living with a partner? [facility] How often to you hav e a drink containing alcohol? Never [facility] Do you feel stress - tense, restless, nervous, or anxious, or unable to sleep at night because your mind is troubled all the time - these days [OSQ] Only a little [facility] (I/We) worried whe er (my/our) food would run out before (I/we) got money to buy more. Never true [facility] In the past 12 month s, was there a time when you were not able to pay the mortgage or rent on time? No [facility] Start: 06-06-2018 Gender identity Identifies as female gender (finding) [facility] Start: 07-28-2019 Sexual orientation Heterosexual (anna lama) [facility] Work Phone: Start: 06-18-2024 End: 06-18-2024 Sex Female (finding) [facility] Goals Date Patient Goal Desired Activity /State Functional Status Date Assessment Result Facility 08-13-2021 Are you deaf, or do you have serious difficulty hearing No 08/13/2021 2:10 PM EDT Tasha Lovell APRN.CNP No [facility] Work Phone: 08-13-2021 Are you blind, or do you have serious difficulty seeing, even when wearing glasses No 08/13/2021 2:10 PM EDT Tasha Lovell APRN.CNP No [facility] 08-13-2021 Do you have serious difficulty walking or climbing stairs No 08/13/2021 2:10 PM EDT Tasha Lovell APRN.TRAINING PROGRAM DEVELOPER No [facility] 08-13-2021 Do you have difficul ty dressing or bathing No 08/13/2021 2:10 PM EDT Tasha Lovell APRN.TRAINING PROGRAM DEVELOPER No [facility] 08-13-2021 Because of a physica l, mental, or emotional condition, do you have difficulty doing errands alone such as visiting a physician's office or shopping No 08/13/2021 2:10 PM EDT Tasha Lovell APRN.TRAINING PROGRAM DEVELOPER No [facility] Mental Status Date Assessment Result Facility 03-06-2022 Cognitive function Voice/Name [facility] Work Phone: 12-28-2021 Cognitive function Level Of Cons ciousness Awake;Alert;Follows Commands [facility] Work Phone: 10-18-2021 Cognitive function Level Of Cons ciousness Awake;Alert;Appropriate;Fol lows Commands [facility] Work Phone: 08-23-2021 Cognitive function Level Of Cons ciousness Awake;Alert;Appropriate [facility] Work Phone: 08-23-2021 Cognitive function Voice/Name [facility] Work Phone: 08-13-2021 Because of a physica l, mental, or emotional condition, do you have serious difficulty concentrating, remembering, or making decisions No 08/13/2021 2:10 PM EDT Tasha Lovell APRN.[facility] No [facility] Clinical Notes 05-05-2020 to 08-27-2024 Thalia Monterroso MD - 08/27/2024 10:07 AM EDTBNicole barnett MA - 08/27/2024 9:35 AM EDT Note Date & Type Note Facility 08-27-2024 History of Presen t illness Narrative Images from the original note were not included. RHEUMATOLOGY CLINIC FOLLOW-UP NOTE PROVIDER: Thalia Monterroso MD DISTANCE HEALTH VISIT This Team Access Model visit is a virtual encounter. It required patient-provider interaction for the medical decision making as documented below. I have communicated my name and active licensure. The patient's identity and physical location were verified at the time of this visit. Either the patient or their legal assistance representative has been informed of the risks and benefits of -- and alternatives to -- treatment through a remote evaluation and consents to proceed with the evaluation remotely. SUBJECTIVE: CC: routine follow up for RA (CCP 44, RF neg, non-erosive) Last seen: 05/21/2024 (with Thalia Monterroso) Current treatment: Prednisone 20 mg/day Prior Medications: MTX 8 tablets weekly and folic acid 1 mg daily; recently dose decreased to 6 tabs/week in 02/2020 - stopped due to cirrhosis Plaquenil caused itching and rash Brief History of Present Illness: 80 WF with PMHx significant for h/o L BrCa (Dx 2007) s/p mastectomy & Chemo-Rx with recurrence in 2016 s/p surgical excision, OA (hands & knees), chronic AF on A/C & beta-nahun, and STUART on CPAP, recurrent diverticulitis and bowel resection who is seen in the Rheumatology Clinic for follow up of PMR and RA. She has been on steroids for PMR since Dec 2012 (elevated ESR and CRP at the time). She started to develop symptoms of inflammatory arthritis in Apr 2014 and was started on methotrexate then. She has borderline CCP positivity and negative radiographs. She has a history or RA that was diagnosed over 20 years ago and only treated with anti-inflammatories historically. She says it was largely in remission until early 2014. Plaquenil was added in October 2014. At her last visit we increased MTX from 6 to 8 tablets weekly. Joint pain is better. She doesn't notice swollen joints. Has a little bit of AM stiffness. Primarily the left shoulder bothers her. She has already done physical therapy and is considering getting a steroid injection locally Has right flank pain of the right rib over the last 2 months which has worsened She took mesalamine for 1 month for diverticulitis which did help her abdominal pain October 18, 2016: since her last visit she decided to stop hydroxychloroquine bc she thought it may be causing side effects. Complains of hair loss. She has also had some recent bouts of weakness and dizziness. She hsa seen cardiology and ENT and he is suspicions of her BP being too low. Metop dose was cut back. She isn't taking tramadol and she rarely takes tylenol. Her joint pain comes and goes. She does occasionally have knee or shoulder pain. She doesn't have significant AM stiffness. She doesn't have swollen joints. May 09, 2017: she has not noticed any change in her joint pain since stopping hydroxychloroquine in September 2016. She complains of intermittently arthralgias with stinging sharp intermittent pain of the left wrist (wihtout swelling), tenderness of CMC's, occasional shoulder pain, knee pain, and neck stiffness. She denies having swollen joints. She is tolerating the methotrexate well. 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 She takes tylenol only on occasion (not regularly). October 10, 2017 she feels like in general her pain is well controlled. A few months ago she developed severe neck pain. Eventually it calmed down, she started physical therapy this week No joint swelling, no morning stiffness. rheumatoid arthritis has been well controlled. Tolerating methotrexate well. March 13, 2018 rheumatoid arthritis is well controlled. She is occasional joint and muscle pain in various places that come and go. She takes tylenol as needed but admits to rarely using this. She remains on methotrexate and is tolerating it well. September 30, 2018: she complains of more hand pain and stiffness overall. Describes pain in hands, CMC joints, shoulders, and knees. Still taking methotrexate 8 tabs weekly. She hasn't hd any flares. She is tolerating meds well. She complains of increased hair loss. March 26, 2019 complains of more pain in her hands and fingers. +morning stiffness, has trouble making a fist in the AM. Also complains of more shoulder pain. Is having trouble doing shoulder exercises in the water due to pain. Several finger joints swell. She applies voltaren to the fingers when they swell. September 24, 2019 she admits she has had a lot of problems with her hands lately. Comes and goes. She has been getting trigger fingers, sees a hand specialist. She has a lot of pain in her left shoulder, sometimes can't sleep on the left side at night. She complains of chronic low back pain. Denies having any flares. Prolonged AM stiffness takes about an hour to loosen up. March 24, 2020 since last visit she has had 5 flares which lasted about 2 days each. She would have fevers as high as 101, normally around 100. Last one was 03/04/20. The flares were associated with low grade fevers and widespread myalgias. She denies overt joint swelling. She has been on methotrexate 6 tabs for 3 weeks at a lower dose due to elevated liver tests. She says she has 3 fingers that need surgery due to triggering. She doesn't appreciate swelling in her hands. She was having night sweats during her flares. No weight loss. She takes tylenol as needed not on a daily basis. July 21, 2020 she has been having more activity from rheumatoid arthritis. Ankles swollen, multiple joint pain all over. She recently took a medrol dose pack which significantly helped. April 13, 2021 methotrexate was stopped due to having developed cirrhosis of the liver. She has been off methotrexate for about 3 months. Overall she admits she is doing ok. She doesn't notice an increase in joint pain. She does get occasional flare ups that may last a couple of days. February 24, 2023 last visit with her was nearly 2 years ago. She stopped methotrexate due to a diagnosis of cirrhosis. She has been staying in an assisted living. Overall she was doing ok until a few weeks ago. She developed acute onset of widespread pain (difficult for her to localize). She was given a course of prednisone which she recalls immediately relieved the pain. As soon as she stops the prednisone the pain returns. She has now had 3 courses of prednisone like this. Admits she has pain in shoulders and hips. She denies headaches, vision changes or jaw pain. She is currently on a prednisone taper and is on 20 mg/day, says right now she feels well. July 04, 2023 SHe has been on a prednisone taper since February. She had trouble tapering down and in April we restarted a slower taper starting back at 15 mg. She admits she has been having a great deal of pain in shoulders, knees, wrists, hands. She is having swelling of the knees and of the right wrist. Assoc with morning stiffness. Plaquenil started in 04/2023, she is now down to 10 mg of prednisone. She had bilateral knee injections last week November 14, 2023 infliximab infusions started in August. She has had 3 doses. She feels it is slowly helping. Prednisone down to 6 mg daily. She has a wound on her arm that has been very slow to heal and she worries it may be due to the infusion. Also complains of itching. March 05, 2024 spoke with daughter today. She has been very weak and having quite a bit more pain recently. She is up to 10 mg of prednisone daily but pain has been worse despite a dose increase. She doesn't feel infusions are helping. She is having iron deficiency anemia and doesn't feel any improvement with iron infusions. There is concern that she may have recurrence of her breast cancer given these new symptoms. May 21, 2024 she says her pain is significantly better after having increased prednisone to 20 mg/day. Pain level is down to a 4/10 which she says it normal and tolerable for her. She does have trouble standing up or sitting down due to weakness and has had a recent fall. She is doing physical therapy. August 27, 2024 Unfortuantely in July she fell and fractured her humerus. She is wearing a cast. Daughter admits she has had several falls. Says her pain is overall well controlled but remains on prednisone 20 mg daily. REVIEW OF SYSTEMS: Answers submitted by the patient for this visit: Review of Systems Rheumatology (Submitted on 08/27/2024) Fever : No Recent unintentional weight change: No Eye pain: No Eye redness: No Vision Disturbance: No Eye Dryness: Yes Nosebleeds: No Sores in your mouth: No Trouble Swallowing: Yes Dry Mouth: Yes Chest pain: No Leg Swelling: No A cough: No Shortness of breath: Yes Pain with breathing: No Heartburn: No Abdominal pain: No Diarrhea: No Black tarry stools: No Blood in urine: No Pain or burning with urination: Yes Joint pain or stiffness: Yes Muscle weakness: Yes Muscle aches: Yes Joint swelling: Yes Morning Stiffness in Joints: Yes A rash: No Skin Color Changes: Yes Hair Loss: No Nail Changes: No Headaches: No Numbness: Yes Memory Loss: Yes Swollen Glands: No RAPID 3: DISEASE ACTIVITY: 11/11/2023 03/03/2024 05/21/2024 RAPID-3 Weighed Score RAPID 3 Weighed Score 6.67 (High severity ) 8.33 (High severity ) Incomplete Weighed Score Levels: 0 - 1: Near Remission 1.3 - 2.0: Low Severity 2.3 - 4.0: Moderate Severity 4.3 - 10.0: High Severity PAST MEDICAL HISTORY: PAST MEDICAL HISTORY Diagnosis Date Abdominal pain, left lower quadrant long standing Arrhythmia Arthritis Asthma Atrial fibrillation ([facility]) 2009 Atrophic vaginitis Benign neoplasm of colon [...] breast of female, estrogen receptor positive ([facility]) 06/03/2017 Mitral valve disorders(424.0) and irregular heartbeat on occasion stress related Mixed stress and urge urinary incontinence Osteoarthrosis, unspecified whether generalized or localized, other specified sites 07/22 vit D 41 Other diseases of pharynx, not elsewhere classified(478.29) Other extrapyramidal disease and abnormal movement disorder PMH - PAST MEDICAL HISTORY OF benign mass on liver PMR (polymyalgia rheumatica) ([facility]) 2012 Pure hypercholesterolemia Snoring 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 PREDNISONE ORAL Take 10 mg by mouth once daily. (Patient taking differently: Take 20 mg by mouth once daily.) Methenamine Hippurate (HIPREX) 1 gram tablet Take 1 tablet by mouth two times a day with meals. estradiol (ESTRACE) 0.01 % (0.1 mg/gram) vaginal cream as needed. PRN FOR DRYNESS modafinil (PROVIGIL) 100 mg tablet Take 100 mg by mouth once daily as needed. traMADol (ULTRAM) 50 mg tablet Take 50 mg by mouth every 6 hours as needed for pain. furosemide (LASIX) 20 mg tablet Take 1 tablet by mouth every other day. senna/docusate sodium (SENNA-C PLUS ORAL) Take 8.6 mg by mouth once daily. Acetaminophen 500 mg cap Take 1,000 mg by mouth three times a day as needed. guaiFENesin (ROBITUSSIN) 100 mg/5 mL syrup Take 200 mg by mouth every 4 hours as needed. FERROUS GLUCONATE ORAL Take 324 mg by mouth once daily. metoprolol succinate ER (TOPROL XL) 25 mg 24 hr tablet Take 1 tablet by mouth once daily. znkcxcs-eddsbhtlz-vtfawdf D3 500 mg-5 mcg (200 unit) per [...] Take 0.5 tablets by mouth once daily. cetirizine (ZYRTEC) 10 mg tablet Take 1 tablet by mouth once daily. MULTIVITAMIN TAB Take 1 tablet by mouth once daily. omeprazole (PRILOSEC) 40 mg capsule Take 1 capsule by mouth once daily. No current facility-administered medications for this visit. PHYSICAL EXAMINATION: VIDEO EXAM: (if completed, performed via video enabled technology) GENERAL: alert and appropriate, in no distress, well-hydrated, well nourished, and happy, smiling, interactive RESPIRATORY: breathing non-labored CHEST: equal chest rise with normal respiratory effort EXTREMITIES: no synovitis Reviewed 08/27/2024 and above documentation is unchanged from previous visit Labs/Imaging: Latest Ref Rng & Units 08/19/2023 11/25/2023 02/24/2024 06/11/2024 CBC WBC 3.70 - 11.00 k/uL 8.26 5.20 9.49 7.11 Hemoglobin 11.5 - 15.5 g/dL 11.6 9.8 8.5 11.0 Hematocrit 36.0 - 46.0 % 34.7 29.7 28.3 34.9 Platelet Count 150 - 400 k/uL 169 146 243 141 Abs Neut (ANC) 1.45 - 7.50 k/uL 6.42 4.13 7.29 6.00 Abs Lymph 1.00 - 4.00 k/uL 0.67 0.54 0.92 0.50 Latest Ref Rng & Units 11/25/2023 02/24/2024 03/19/2024 06/11/2024 CMP Sodium 136 - 144 mmol/L 139 132 138 Potassium 3.7 - 5.1 mmol/L 4.0 4.4 4.4 Chloride 98 - 107 mmol/L 105 101 104 CO2 22 - 30 mmol/L 21 21 23 Glucose 74 - 99 mg/dL 148 162 240 BUN 7 - 21 mg/dL 15 16 18 Creatinine 0.58 - 0.96 mg/dL 0.63 0.67 0.58 0.59 Calcium 8.5 - 10.2 mg/dL 9.3 8.6 9.1 AST 13 - 35 U/L 31 21 28 ALT 7 - 38 U/L 22 13 26 Alkaline Phosphatase 34 - 123 U/L 80 69 64 Latest Ref Rng & Units 03/29/2014 Uric Acid Uric Acid 2.0 - 7.0 mg/dL 6.3 Latest Ref Rng & Units 07/04/2023 11/25/2023 02/24/2024 06/11/2024 ESR, WSR WSR 0 - 20 mm/hr 49 129 123 40 Latest Ref Rng & Units 07/04/2023 11/25/2023 02/24/2024 06/11/2024 CRP CRP <0.9 mg/dL <0.3 0.6 5.5 0.5 Latest Ref Rng & Units 04/29/2013 04/19/2014 04/18/2015 07/08/2021 CK CK 42 - 196 U/L 13 37 47 32 Latest Ref Rng & Units 04/22/2014 07/06/2021 07/09/2021 07/04/2023 RF and CCP Rheumatoid Factor <16 IU/mL 17 62 439 CCP Antibody IgG Qualitative Negative Strong Positive Strong Positive CCP Antibody, IgG <20 Units 44 105 >250 Latest Ref Rng & Units 02/09/2021 03/06/2021 07/05/2021 07/04/2023 Hepatitis Screen Hep A Ab, IgM Negative Negative Hep B Core Ab, IgM Negative Negative Negative Hep B Core Ab, Total Negative Positive Positive Negative Hep B Surf Ab Qual Negative Negative Hep C Antibody IA Negative Negative Negative Hep B Surface Ag Negative Negative Negative Negative 01/02/2021 07/04/2023 TB Screen TB Interpretation No evidence of current or previous infection with Mycobacterium tuberculosis. This result is indeterminate for Mycobacterium tuberculosis complex antigen responsiveness. Specimens from immunocompromised patients, those <5 years of age, and those with a known recent exposure may fall under this category. Please correlate with clinical picture and other alternative assessments. TB Result Negative Indeterminate Latest Ref Rng & Units 08/13/2021 10/13/2021 10/16/2021 10/16/2021 Antibodies PT Sec 9.7 - 13.0 sec 20.1 19.7 PT INR 0.9 - 1.3 2.0 4.8 2.1 (biotel) 1.9 This result is from an external source. Latest Ref Rng & Units 08/30/2021 09/26/2021 01/02/2022 2022 Urinalysis PROTEIN UA (POCT) Negative mg/dL Negative Negative Negative Negative XR feet 12/29 Bilateral calcaneal spurs and mild hypertrophic changes to LEFT first metatarsal head. XR hands 07/11/14 There are diffuse degenerative changes bilaterally greater in the first carpometacarpal and STT joints with narrowing of the joint space and osteophyte formation. There is no erosion, periosteal reaction or soft tissue swelling. Mineralization is normal. XR left shoulder 08/16/15 FINDINGS: There has been interval increase in the osteophyte of the inferior left glenohumeral joint. Mild to moderate joint space narrowing is unchanged. Moderate AC joint degenerative change, unchanged. The acromiohumeral interval is maintained. Surgical clips in the left axilla, unchanged. XR shoulders reviewed from 06/20/20 Significant glenohumeral joint space narrowing with large inferior humeral head osteophyte, more advanced than previous. Narrowing with mild spurring at the AC joint, also more advanced than previous. Acromiohumeral distance is maintained. No fracture or dislocation. ASSESSMENT: 1. Rheumatoid arthritis involving multiple sites, unspecified whether rheumatoid factor present (HCC) - ICD9: 714.0, ICD10: M06.9 (primary diagnosis) Pain is much improved today after increasing prednisone to 20 mg/day. She has been on this dose for several months now. Will decrease to 15 mg/day Plaquenil stopped due to rash and itching. Infliximab IV was started in 2023 and she hadn't felt any benefit after several infusions so we stopped these. Continue tramadol by pall care Avoid hepatotoxic meds (methotrexate/Arava) 2. 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 Reclast #1 12/11/23 Humerus fracture in 07/2024 Will arrange for her to start Prolia in place of Reclast ok to start prolia donald. 3. On prednisone therapy - ICD9: V58.65, ICD10: Z79.52 (Some elements copied from my prior note, which have been updated where appropriate, and all reflect current medical decision making from today, 08/27/2024) Follow-up 3 months Thalia Monterroso MD Zoom Daughter Eloisa ([email or web address]) will be with her to do the virtual visit Had 3 falls in the last 30 days Skin tear with 1 of the falls The 3rd fall on 08/10 fractured left ulna which is mildly displaced. She is in a long arm cast. It was decided not to do surgery. Pain is controlled with tramadol and tylenol She saw ortho that is located near her residence. Unable to see any of the records in care everywhere. She had a CT of Abdomen due to uncontrollable frequent soft stools, frequent UTI's at [facility] She was diagnosed with colitis which is a new diagnosis. [facility] [employer] [facility] increased her prednisone from 20 to 40 mg x 1 week. She is now back to taking 20 mg. The prednisone is prescribed by you. She is going to see GI, patient does have a hx of bowel resection. She has had 1 reclast infusion 12/11/23 Per last ov note you were going to visit the idea of starting prolia documented in this encounter [facility] 08-13-2024 Evaluation note Diagnosis Onset Date Resolution Fall acute August 13, 2024 2:06pm Fx distal ulna-closed acute August 13, 2024 2:06pm [facility] Work Phone: [phone] 513-780905-25-2025 Radiology Diagnostic study note [facility] [address] [place] [address] CT Abd/Pelvis W/WO Contrast MR#: [id number] Acct: [id number] Name: CHRISTIAN LANDRUM Rep #: [id number] : 1935 F 89 From: Celi Man MD PCP: Dr. Reji Reyna MD Status: R EG CLI Study:CT Abd/Pelvis W/WO Contrast Date of Exa m: 08/06/24 Exam# [id number] Ordering Dr: Hiwot Abdullahi MD PROCEDURE: CT ABD/PELVIS W/WO CONTRAST 08/06/2024 REASON FOR EXAM: UTI /DIARRHEA/ BLADDER FISTULA TECHNIQUE: Abdomen and pelvis CT with intravenous contrast. Coronal and Sagittal reconstruction series were provided. PATIENT PREPARATION: Per protocol ORAL CONTRAST TYPE: None. CONTRAST: Isovue-300 50 VOLUME: 100 mL One or more dose reduction techniques were used (e.g., Automated exposure control, adjustment of the mA and/or kV according to patient size, use of iterative reconstruction technique. Precontrast images are provided. Delayed post IV contrast images. RADIATION DOSE SUMMARY: CTDlvol: 25.2 mGy DLP: 1169 mGycm COMPARISON: None. FINDINGS: Cirrhotic liver. Mild splenomegaly. Cholelithiasis. Mild diffuse thickening of the underdistended gallbladder. 3 mm stone in the most distal aspect of the common bile duct. Diffuse thickening of the wall of the bladder suggestive of mild cystitis. Gas density is noted in the lumen of the bladder. Please correlate with recent instrumentation to exclude the presence of fistula. No evidence of contrast leakage on delayed phase images from the bladder. Diffuse colonic diverticulosis. Minimal thickening of the mid sigmoid colon, possibly minimal colitis. Diffuse spondylosis. Fat containing umbilical hernia without incarceration. Small sliding hiatal hernia. Diffuse thickening of the stomach suggestive of gastritis. Normal extrahepatic biliary system. Normal pancreas. Normal bilateral adrenal glands. Normal size of the right kidney. There is no right renal mass. There are no right renal calculi. There is no right hydronephrosis. Normal visualized right ureter. Normal size of the left kidney. There is no left renal mass. There are no leftrenal calculi. There is no left hydronephrosis. Normal visualized left ureter. Normal small intestine. There is no demonstrated peritoneal fluid. Normal abdominal aorta. Normal inferior vena cava. Normal retroperitoneum. There is no pelvic mass lesion or lymphadenopathy. There is no pelvic fluid. CT/CT Abd/Pelvis W/WO Contrast IMPRESSION: 1. Cirrhotic liver. 2. Mild splenomegaly. 3. Cholelithiasis. 4. Mild diffuse thickening of the underdistended gallbladder. 5. 3 mm stone in the most distal aspect of the common bile duct. 6. Diffuse thickening of the wall of the bladder suggestive of mild cystitis. 7. Gas density is noted in the lumen of the bladder. Please correlate with recent instrumentation to exclude the presence of fistula. 8. No evidence of contrast leakage on delayed phase images from the bladder. 9. Diffuse colonic diverticulosis. 10. Minimal thickening of the mid sigmoid colon, possibly minimal colitis. 11. Diffuse spondylosis. 12. Fat containing umbilical hernia without incarceration. 13. Small sliding hiatal hernia. 14. Diffuse thickening of the stomach suggestive of gastritis. Reading [facility] CC: Dr. Reji Reyna MD; Dr. Hiwot Abdullahi MD ~ Lifeguard: Signed [facility]04-02-2025 Telephone encounter Note* Telephone Encounter - Daly Kaiser LPN - 06/16/2024 3:[address] Monterroso please advise outside labs thank you. Daly Kaiser LPN June 16, 2024 3:40 PM Media Information File Link Scan on 06/16/2024 3:39 PM by Daly Kaiser LPN: OUTSIDE LAB RESULTS 06/16/24 [facility]04-02-2025 Miscellaneous Notes* Telephone Encounter - Daly Kaiser LPN - 06/16/2024 3:[address] Monterroso please advise outside labs thank you. Daly Kaiser LPN June 16, 2024 3:40 PM Media Information File Link Scan on 06/16/2024 3:39 PM by Daly Kaiser LPN: OUTSIDE LAB RESULTS 06/16/24 [facility] History of Present illness Narrative* Thalia Monterroso MD - 05/21/2024 11:09 AM EST Images from the original note were not included. RHEUMATOLOGY CLINIC FOLLOW-UP NOTE PROVIDER: Thalia Monterroso MD DISTANCE HEALTH VISIT This Team Access Model visit is a virtual encounter. It required patient- provider interaction for the medical decision making as documented below. I have communicated my name and active licensure. The patient's identity and physical location wereverified at the time of this visit. Either the patient or their legal assistance representative has been informed of the risks and benefits of -- and alternatives to -- treatment through a remote evaluation andconsents to proceed with the evaluation remotely. SUBJECTIVE: CC: routine follow up for RA (CCP 44, RF neg, non-erosive) Last seen: 03/05/2024 (with Thalia Monterroso) Current treatment: Prednisone 20 mg/day Prior Medications: MTX 8 tablets weekly and folic acid 1 mg daily; recently dose decreased to 6 tabs/week in 02/2020 -stopped due to cirrhosis Plaquenil caused itching and rash Brief History of Present Illness: 80 WF with PMHx significant for h/o L BrCa (Dx 2007) s/p mastectomy & Chemo-Rx with recurrence in 2016 s/p surgical excision, OA (hands & knees), chronic AF on A/C & beta-nahun, and OSAon CPAP, recurrent diverticulitis and bowel resection who is seen in the Rheumatology Clinic for follow up of PMR and RA. She has been on steroids for PMR since Dec 2012 (elevated ESR and CRP at the [facility]). She started to develop symptoms of inflammatory arthritis in Apr 2014 and was started on methotrexate then. She has borderline CCP positivity and negative radiographs. She has a history or RA that was diagnosed over 20 years ago and only treated with anti-inflammatories historically. She saysit was largely in remission until early 2014. Plaquenil was added in October 2014. At her last visit we increased MTX from 6 to 8 tablets weekly. Joint pain is better. She doesn't notice swollen joints. Has a little bit of AM stiffness. Primarily the left shoulder bothers her. She has already done physical therapy and is considering getting a steroid injection locally Has right flank pain of the right rib over the last 2 months which has worsened She took mesalamine for 1 month for diverticulitis which did help her abdominal pain October 18, 2016: since her last visit she decided to stop hydroxychloroquine bc she thought it may be causing side effects. Complains of hair loss. She has also had some recent bouts of weakness and dizziness. She hsa seen cardiology and ENT and he is suspicions of her BP being too low. Metop dose was cut back. She isn't taking tramadol and she rarely takes tylenol. Her joint pain comes and goes. She does occasionally have knee or shoulder pain. She doesn't have significant AM stiffness. She doesn't have swollen joints. May 09, 2017: she has not noticed any change in her joint pain since stopping hydroxychloroquine in September 2016. She complains of intermittently arthralgias with stinging sharp intermittent pain of the left wrist (wihtout swelling), tenderness of CMC's, occasional shoulder pain, knee pain, and neck stiffness. She denies having swollen joints. She is tolerating the methotrexate well. 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 She takes tylenol only on occasion (not regularly). October 10, 2017 she feels like in general her pain is well controlled. A few months ago she developedsevere neck pain. Eventually it calmed down, she started physical therapy this week No joint swelling, no morning stiffness. rheumatoid arthritis has been well controlled. Tolerating methotrexate well. March 13, 2018 rheumatoid arthritis is well controlled. She is occasional joint and muscle pain in various places that come and go. She takes tylenol as needed but admits to rarely using this. Sheremains on methotrexate and is tolerating it well. September 30, 2018: she complains of more hand pain and stiffness overall. Describes pain in hands, CMC joints, shoulders, and knees. Still taking methotrexate 8 tabs weekly. She hasn't hd any flares. Sheis tolerating meds well. She complains of increased hair loss. March 26, 2019 complains of more pain in her hands and fingers. +morning stiffness, has trouble making a fist in the AM. Also complains of more shoulder pain. Is having trouble doing shoulder exercises in the water due to pain. Several finger joints swell. She applies voltaren to the fingers whenthey swell. September 24, 2019 she admits she has had a lot of problems with her hands lately. Comes and goes. She has been getting trigger fingers, sees a hand specialist. She has a lot of pain in her left shoulder,sometimes can't sleep on the left side at night. She complains of chronic low back pain. Denies having any flares. Prolonged AM stiffness takes about an hour to loosen up. March 24, 2020 since last visit she has had 5 flares which lasted about 2 days each. She would have fevers as high as 101, normally around 100. Last one was 03/04/20. The flares were associated with low grade fevers and widespread myalgias. She denies overt joint swelling. She has been on methotrexate 6 tabs for 3 weeks at a lower dose due to elevated liver tests. She says she has 3 fingers that need surgery due to triggering. She doesn't appreciate swelling in her hands. She was having night sweats during her flares. No weight loss. She takes tylenol as needed not on a daily basis. July 21, 2020 she has been having more activity from rheumatoid arthritis. Ankles swollen, multiple joint pain all over. She recently took a medrol dose pack which significantly helped. April 13, 2021 methotrexate was stopped due to having developed cirrhosis of the liver. She has been off methotrexate for about 3 months. Overall she admits she is doing ok. She doesn't notice an increase in joint pain. She does get occasional flare ups that may last a couple of days. February 24, 2023 last visit with her was nearly 2 years ago. She stopped methotrexate due to a diagnosis of cirrhosis. She has been staying in an assisted living. Overall she was doing ok until a few weeks ago. She developed acute onset of widespread pain (difficult for her to localize). She was given a course of prednisone which she recalls immediately relieved the pain. As soon as she stops the prednisone the pain returns. She has now had 3 courses of prednisone like this. Admits she has pain in shoulders and hips. She denies headaches, vision changes or jaw pain. She is currently on a prednisone taper and is on 20 mg/day, says right now she feels well. July 04, 2023 SHe has been on a prednisone taper since February. She had trouble tapering down andin April we restarted a slower taper starting back at 15 mg. She admits she has been having a great deal of pain in shoulders, knees, wrists, hands. She is having swelling of the knees and of the right wrist. Assoc with morning stiffness. Plaquenil started in 04/2023, she is now down to 10 mg of prednisone. She had bilateral knee injections last week November 14, 2023 infliximab infusions started in August. She has had 3 doses. She feels it is slowly helping. Prednisone down to 6 mg daily. She has a wound on her arm that has been very slow to heal and she worries it may be due to the infusion. Also complains of itching. March 05, 2024 spoke with daughter today. She has been very weak and having quite a bit more pain recently. She is up to 10 mg of prednisone daily but pain has been worse despite a dose increase. She doesn't feel infusions are helping. She is having iron deficiency anemia and doesn't feel any improvement with iron infusions. There is concern that she may have recurrence of her breast cancer given these new symptoms. May 21, 2024 she says her pain is significantly better after having increased prednisone to 20 mg/day. Pain level is down to a 4/10 which she says it normal and tolerable for her. She does have trouble standing up or sitting down due to weakness and has had a recent fall. She is doing physical therapy. REVIEW OF SYSTEMS: Answers submitted by the patient for this visit: Review of Systems Rheumatology (Submitted on 05/21/2024) Fever : No Recent unintentional weight change: No Eye Dryness: Yes Trouble Swallowing: Yes Dry Mouth: Yes Chest pain: No Leg Swelling: No A cough: Yes Blood when you cough: No Shortness of breath: Yes Pain with breathing: No Heartburn: No Abdominal pain: Yes Diarrhea: Yes Black tarry stools: No Blood in urine: No Pain or burning with urination: No Joint pain or stiffness: Yes Muscle weakness: Yes Muscle aches: Yes Joint swelling: Yes Morning Stiffness in Joints: Yes A rash: No Skin Color Changes: No Hair Loss: No Nail Changes: No Headaches: No Numbness: No Memory Loss: Yes Swollen Glands: No RAPID 3: DISEASE ACTIVITY: 11/11/2023 03/03/2024 05/21/2024 RAPID-3 Weighed Score RAPID 3 Weighed Score 6.67 (High severity ) 8.33 (High severity ) Incomplete Weighed Score Levels: 0 - 1: Near Remission 1.3 - 2.0: Low Severity 2.3 - 4.0: Moderate Severity 4.3 - 10.0: High Severity PAST MEDICAL HISTORY: PAST MEDICAL HISTORY Diagnosis [...] 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 PREDNISONE ORAL Take 10 mg by mouth once daily. Methenamine Hippurate (HIPREX) 1 gram tablet Take 1 tablet by mouth two times a day with meals. estradiol (ESTRACE) 0.01 % (0.1 mg/gram) vaginal cream as needed. PRN FOR DRYNESS modafinil (PROVIGIL) 100 mg tablet Take 100 mg by mouth once daily as needed. traMADol (ULTRAM) 50 mg tablet Take 50 mg by mouth every 6 hours as needed for pain. furosemide (LASIX) 20 mg tablet Take 1 tablet by mouth every other day. senna/docusate sodium (SENNA-C PLUS ORAL) Take 8.6 mg by mouth once daily. Acetaminophen 500 mg cap Take 1,000 mg by mouth three times a day as needed. guaiFENesin (ROBITUSSIN) 100 mg/5 mL [...] once daily. Take on empty stomach. ForThyroid escitalopram oxalate (LEXAPRO) 10 mg tablet Take 1 tablet by mouth once daily. gabapentin (NEURONTIN) 600 mg tablet Take 0.5 tablets by mouth once daily. cetirizine (ZYRTEC) 10 mg tablet Take 1 tablet by mouth once daily. MULTIVITAMIN TAB Take 1 tablet by mouth once daily. oqygggx-gusnslgxj-vwaincx D3 500 mg-5 mcg (200 unit) per tablet Take 1 tablet by mouth once daily. omeprazole (PRILOSEC) 40 mg capsule Take 1 capsule by mouth once daily. No current facility-administered medications for this visit. PHYSICAL EXAMINATION: VIDEO EXAM: (if completed, performed via video enabled technology) GENERAL: alert and appropriate, in no distress, well-hydrated, well nourished, and happy, smiling, interactive RESPIRATORY: breathing non-labored CHEST: equal chest rise with normal respiratory effort EXTREMITIES: no synovitis Reviewed 05/21/2024 and above documentation is unchanged from previous visit Labs/Imaging: Latest Ref Rng & Units 07/04/2023 08/19/2023 11/25/2023 02/24/2024 CBC WBC 3.70 - 11.00 k/uL 10.38 8.26 5.20 9.49 Hemoglobin 11.5 - 15.5 g/dL 13.2 11.6 9.8 8.5 Hematocrit 36.0 - 46.0 % 39.4 34.7 29.7 28.3 Platelet Count 150 - 400 k/uL 151 169 146 243 Abs Neut (ANC) 1.45 - 7.50 k/uL 8.02 6.42 4.13 7.29 Abs Lymph 1.00 - 4.00 k/uL 0.84 0.67 0.54 0.92 Latest Ref Rng & Units 07/04/2023 11/25/2023 02/24/2024 03/19/2024 CMP Sodium 136 - 144 mmol/L 138 139 132 Potassium 3.7 - 5.1 mmol/L 4.5 4.0 4.4 Chloride 98 - 107 mmol/L 105 105 101 CO2 22 - 30 mmol/L 24 21 21 Glucose 74 - 99 mg/dL 85 148 162 BUN 7 - 21 mg/dL 19 15 16 Creatinine 0.58 - 0.96 mg/dL 0.73 0.63 0.67 0.58 Calcium 8.5 - 10.2 mg/dL 9.7 9.3 8.6 AST 13 - 35 U/L 43 31 21 ALT 7 - 38 U/L 51 22 13 Alkaline Phosphatase 34 - 123 U/L 80 80 69 Latest Ref Rng & Units 03/29/2014 Uric Acid Uric Acid 2.0 - 7.0 mg/dL 6.3 Latest Ref Rng & Units 07/10/2021 07/04/2023 11/25/2023 02/24/2024 ESR, WSR WSR 0 - 20 mm/hr 101 49 129 123 Latest Ref Rng & Units 07/10/2021 07/04/2023 11/25/2023 02/24/2024 CRP CRP <0.9 mg/dL 4.7 <0.3 0.6 5.5 Latest Ref Rng & Units 04/29/2013 04/19/2014 04/18/2015 07/08/2021 CK CK 42 - 196 U/L 13 37 47 32 Latest Ref Rng & Units 04/22/2014 07/06/2021 07/09/2021 07/04/2023 RF and CCP Rheumatoid Factor <16 IU/mL 17 62 439 CCP Antibody IgG Qualitative Negative Strong Positive Strong Positive CCP Antibody, IgG <20 Units 44 105 >250 Latest Ref Rng & Units 02/09/2021 03/06/2021 07/05/2021 07/04/2023 Hepatitis Screen Hep A Ab, IgM Negative Negative Hep B Core Ab, IgM Negative Negative Negative Hep B Core Ab, Total Negative Positive Positive Negative Hep B Surf Ab Qual Negative Negative Hep C Antibody IA Negative Negative Negative Hep B Surface Ag Negative Negative Negative Negative 01/02/2021 07/04/2023 TB Screen TB Interpretation No evidence of current or previous infection with Mycobacterium tuberculosis. This result is indeterminate for Mycobacterium tuberculosis complex antigen responsiveness. Specimens from immunocompromised patients, those <5 years of age, and those with a known recent exposure mayfall under this category. Please correlate with clinical picture and other alternative assessments. TB Result Negative Indeterminate Latest Ref Rng & Units 08/13/2021 10/13/2021 10/16/2021 10/16/2021 Antibodies PT Sec 9.7 - 13.0 sec 20.1 19.7 PT INR 0.9 - 1.3 2.0 4.8 2.1 (biotel) 1.9 This result is from an external source. Latest Ref Rng & Units 08/30/2021 09/26/2021 01/02/2022 2022 Urinalysis PROTEIN UA (POCT) Negative mg/dL Negative Negative Negative Negative XR feet 12/29 Bilateral calcaneal spurs and mild hypertrophic changes to LEFT first metatarsal head. XR hands 07/11/14 There are diffuse degenerative changes bilaterally greater in the first carpometacarpal and STT joints with narrowing of the joint space and osteophyte formation. There is no erosion, periosteal reaction or soft tissue swelling. Mineralization is normal. XR left shoulder 08/16/15 FINDINGS: There has been interval increase in the osteophyte of the inferior left glenohumeral joint. Mild to moderate joint space narrowing is unchanged. Moderate AC joint degenerative change, unchanged. The acromiohumeral interval is maintained. Surgical clips in the left axilla, unchanged. XR shoulders reviewed from 06/20/20 Significant glenohumeral joint space narrowing with large inferior humeral head osteophyte, more advanced than previous. Narrowing with mild spurring at the AC joint, also more advanced than previous. Acromiohumeral distance is maintained. No fracture or dislocation. ASSESSMENT: 1. Rheumatoid arthritis involving multiple sites, unspecified whether rheumatoid factor present (HCC) - ICD9: 714.0, ICD10: M06.9 (primary diagnosis) Pain is much improved today after increasing prednisone to 20 mg/day Plaquenil stopped last visit due to rash and itching. Infliximab IV was started in 2023 and she hadn't felt any benefit after several infusions so we stopped these. [facility] Avoid hepatotoxic meds (methotrexate/Arava) 2. 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 Reclast #1 12/11/23 We discussed Prolia today as an option. Risk o fracture is high due to ongoing use of steroids it is difficult for her to leave the facility to Prolia may be a good option for her to get at her [facility]. We will discuss more next time 3. On prednisone therapy - ICD9: V58.65, ICD10: Z79.52 (Some elements copied from my prior note, which have been updated where appropriate, and all reflect current medical decision making from today, 05/21/2024) Follow-up 3 months Thalia Monterroso MD * Nicole Childs MA - 05/21/2024 10:55 AM EST Zoom Daughter Eloisa (POA) will be with her to do the virtual visit This is a 6 week follow up that was requested Taking prednisone 20 mg daily - this increased dose was started on 03/30/24 She had another fall a couple of weeks ago. Doing physical and occupation therapy Daughter reports she seems to have less overall pain with 20 mg of prednisone and mobility is better. She has UTI, e coli - 2nd round of antibiotics On macrobid Last lab 02/24/24 Last reclast 12/11/23 Renflexis was stopped due to not feeling any added benefit - last infusion was 01/28/24 [facility] History of Present illness Narrative* Kamila Burns RT(R) - 03/19/2024 11:00 AM EST Radiology Service Progress Note DATE OF SERVICE: March 19, 2024 TIME: 2:31 PM PATIENT IDENTITY VERIFICATION COMPLETED USING TWO (2) STANDARD IDENTIFIERS: Name and Date of confirmed by patient verbally. FALL SCREENING: Has the patient had 2 falls in the last year or 1 fall with injury or currently using an Ambulatory Assistive Device (Walker, Cane, Wheelchair, Crutches, etc.)? No PATIENT GENDER DATA: Female. status: : No status: NO. PATIENT RELEVANT IMPLANT DATA REVIEWED: Yes PATIENT PRESENTS WITH AN IMPLANTABLE OR ATTACHED RESEARCH CONSULTANT: No ALLERGIES: Reviewed and unchanged CONTRAST ALLERGY: NO. EXAM: CT -CONTRAST INDUCED NEPHROPATHY RISK FACTORS: Patient age > 60 years CREATININE: Creatinine Date Value Ref Range Status 03/19/2024 0.58 0.58 - 0.96 mg/dL Final 02/24/2024 0.67 0.58 - 0.96 mg/dL Final 11/25/2023 0.63 0.58 - 0.96 mg/dL Final Estimated Glomerular Filtration Rate Date Value Ref Range Status 03/19/2024 88 >=60 mL/min/1.73m Final Comment: Estimated Glomerular Filtration Rate (eGFR) is calculated using the 2020 CKD-EPI creatinine equation. This equation utilizes serum creatinine, sex, and age as parameters. The creatinine assay has traceable calibration to isotope dilution- mass spectrometry. Refer to KDIGO guidelines for clinical interpretation. In patients with unstable renal function, e.g. those with acute kidney injury, the eGFRmay not accurately reflect actual GFR. eGFR- Date Value Ref Range Status 03/27/2021 >60 Final P.O.C.T. RESULTS: POC done: Yes, See Lab Tab March 19, 2024 TREATMENT: N/A PERIPHERAL IV DATA: power port accessed by impok RADIOLOGY DEPARTMENT: CT; Exam(s) Completed: Chest Abdomen Pelvis SIGNATURE: RT Rajinder(R) PATIENT NAME: Christian Landrum DATE: March 19, 2024 TIME: 2:31 PM [facility] History of Present illness Narrative* Page Ruiz RT(R) - 03/19/2024 9:50 AM EST Radiology Service Progress Note PATIENT NAME: Christian Landrum DATE OF SERVICE: March 19, 2024 TIME: 10:49 AM PATIENT IDENTITY VERIFICATION COMPLETED USING TWO [...] PATIENT RELEVANT IMPLANT DATA REVIEWED: Not Applicable PATIENT PRESENTS WITH AN IMPLANTABLE OR ATTACHED RESEARCH CONSULTANT: No RADIOLOGY DEPARTMENT: General X-ray: Exam(s) Completed: Pelvis X-Ray: Pelvis with Hip Bilateral PERIPHERAL IV DATA: Not applicable SIGNED BY: RT Nithin(R) March 19, 2024 10:49 AM documented in [facility]St[facility] History of Present illness Narrative* Vania Horan RN - 03/12/2024 2:26 PM EST Patient's daughter states mom had some pain, aches, after her last Iron when it was pushed in Infusing this dose over 30 minutes with daughter in agreement. documented in [facility] encounterSt[facility] History of Present illness Narrative* Thalia Monterroso MD - 03/05/2024 9:08 AM EST Images from the original note were not included. RHEUMATOLOGY CLINIC FOLLOW-UP NOTE PROVIDER: Thalia Monterroso MD DISTANCE HEALTH VISIT This Team Access Model visit is a virtual encounter. It required patient- provider interaction for the medical decision making as documented below. I have communicated my name and active licensure. The patient's identity and physical location wereverified at the time of this visit. Either the patient or their legal assistance representative has been informed of the risks and benefits of -- and alternatives to -- treatment through a remote evaluation andconsents to proceed with the evaluation remotely. SUBJECTIVE: CC: routine follow up for RA (CCP 44, RF neg, non-erosive) Last seen: 11/14/2023 (with Thalia Monterroso) Current treatment: Prednisone 10 mg/day Infliximab 200 mg - started 08/28/23 Prior Medications: MTX 8 tablets weekly and folic acid 1 mg daily; recently dose decreased to 6 tabs/week in 02/2020 -stopped due to cirrhosis Plaquenil caused itching and rash Brief History of Present Illness: 80 WF with PMHx significant for h/o L BrCa (Dx 2007) s/p mastectomy & Chemo-Rx with recurrence in 2015 s/p surgical excision, OA (hands & knees), chronic AF on A/C & beta-nahun, and OSAon CPAP, recurrent diverticulitis and bowel resection who is seen in the Rheumatology Clinic for follow up of PMR and RA. She has been on steroids for PMR since Dec 2012 (elevated ESR and CRP at the [facility]). She started to develop symptoms of inflammatory arthritis in Apr 2014 and was started on methotrexate then. She has borderline CCP positivity and negative radiographs. She has a history or RA that was diagnosed over 20 years ago and only treated with anti-inflammatories historically. She saysit was largely in remission until early 2014. Plaquenil was added in October 2014. At her last visit we increased MTX from 6 to 8 tablets weekly. Joint pain is better. She doesn't notice swollen joints. Has a little bit of AM stiffness. Primarily the left shoulder bothers her. She has already done physical therapy and is considering getting a steroid injection locally Has right flank pain of the right rib over the last 2 months which has worsened She took mesalamine for 1 month for diverticulitis which did help her abdominal pain October 18, 2016: since her last visit she decided to stop hydroxychloroquine bc she thought it may be causing side effects. Complains of hair loss. She has also had some recent bouts of weakness and dizziness. She hsa seen cardiology and ENT and he is suspicions of her BP being too low. Metop dose was cut back. She isn't taking tramadol and she rarely takes tylenol. Her joint pain comes and goes. She does occasionally have knee or shoulder pain. She doesn't have significant AM stiffness. She doesn't have swollen joints. May 09, 2017: she has not noticed any change in her joint pain since stopping hydroxychloroquine in September 2016. She complains of intermittently arthralgias with stinging sharp intermittent pain of the left wrist (wihtout swelling), tenderness of CMC's, occasional shoulder pain, knee pain, and neck stiffness. She denies having swollen joints. She is tolerating the methotrexate well. 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 She takes tylenol only on occasion (not regularly). October 10, 2017 she feels like in general her pain is well controlled. A few months ago she developedsevere neck pain. Eventually it calmed down, she started physical therapy this week No joint swelling, no morning stiffness. rheumatoid arthritis has been well controlled. Tolerating methotrexate well. March 13, 2018 rheumatoid arthritis is well controlled. She is occasional joint and muscle pain in various places that come and go. She takes tylenol as needed but admits to rarely using this. Niranjan on methotrexate and is tolerating it well. September 30, 2018: she complains of more hand pain and stiffness overall. Describes pain in hands, CMC joints, shoulders, and knees. Still taking methotrexate 8 tabs weekly. She hasn't hd any flares. Sheis tolerating meds well. She complains of increased hair loss. March 26, 2019 complains of more pain in her hands and fingers. +morning stiffness, has trouble making a fist in the AM. Also complains of more shoulder pain. Is having trouble doing shoulder exercises in the water due to pain. Several finger joints swell. She applies voltaren to the fingers whenthey swell. September 24, 2019 she admits she has had a lot of problems with her hands lately. Comes and goes. She has been getting trigger fingers, sees a hand specialist. She has a lot of pain in her left shoulder,sometimes can't sleep on the left side at night. She complains of chronic low back pain. Denies having any flares. Prolonged AM stiffness takes about an hour to loosen up. March 24, 2020 since last visit she has had 5 flares which lasted about 2 days each. She would have fevers as high as 101, normally around 100. Last one was 03/04/20. The flares were associated with low grade fevers and widespread myalgias. She denies overt joint swelling. She has been on methotrexate 6 tabs for 3 weeks at a lower dose due to elevated liver tests. She says she has 3 fingers that need surgery due to triggering. She doesn't appreciate swelling in her hands. She was having night sweats during her flares. No weight loss. She takes tylenol as needed not on a daily basis. July 21, 2020 she has been having more activity from rheumatoid arthritis. Ankles swollen, multiple joint pain all over. She recently took a medrol dose pack which significantly helped. April 13, 2021 methotrexate was stopped due to having developed cirrhosis of the liver. She has been off methotrexate for about 3 months. Overall she admits she is doing ok. She doesn't notice an increase in joint pain. She does get occasional flare ups that may last a couple of days. February 24, 2023 last visit with her was nearly 2 years ago. She stopped methotrexate due to a diagnosis of cirrhosis. She has been staying in an assisted living. Overall she was doing ok until a few weeks ago. She developed acute onset of widespread pain (difficult for her to localize). She was given a course of prednisone which she recalls immediately relieved the pain. As soon as she stops the prednisone the pain returns. She has now had 3 courses of prednisone like this. Admits she has pain in shoulders and hips. She denies headaches, vision changes or jaw pain. She is currently on a prednisone taper and is on 20 mg/day, says right now she feels well. July 04, 2023 SHe has been on a prednisone taper since February. She had trouble tapering down andin April we restarted a slower taper starting back at 15 mg. She admits she has been having a great deal of pain in shoulders, knees, wrists, hands. She is having swelling of the knees and of the right wrist. Assoc with morning stiffness. Plaquenil started in 04/2023, she is now down to 10 mg of prednisone. She had bilateral knee injections last week November 14, 2023 infliximab infusions started in August. She has had 3 doses. She feels it is slowly helping. Prednisone down to 6 mg daily. She has a wound on her arm that has been very slow to heal and she worries it may be due to the infusion. Also complains of itching. March 05, 2024 spoke with daughter today. She has been very weak and having quite a bit more pain recently. She is up to 10 mg of prednisone daily but pain has been worse despite a dose increase. She doesn't feel infusions are helping. She is having iron deficiency anemia and doesn't feel any improvement with iron infusions. There is concern that she may have recurrence of her breast cancer given these new symptoms. REVIEW OF SYSTEMS: Answers submitted by the patient for this visit: Review of Systems Rheumatology (Submitted on 03/03/2024) Fever : Yes Recent unintentional weight change: No Eye pain: No Eye redness: No Vision Disturbance: No Eye Dryness: Yes Nosebleeds: No Sores in your mouth: No Trouble Swallowing: No Dry Mouth: Yes Chest pain: No Leg Swelling: Yes A cough: No Shortness of breath: Yes Pain with breathing: Yes Heartburn: No Abdominal pain: Yes Diarrhea: Yes Black tarry stools: No Blood in urine: No Pain or burning with urination: No Joint pain or stiffness: Yes Muscle weakness: Yes Muscle aches: Yes Joint swelling: Yes Morning Stiffness in Joints: Yes A rash: No Skin Color Changes: Yes Hair Loss: Yes Nail Changes: No Headaches: No Numbness: Yes Memory Loss: No Swollen Glands: No RAPID 3: DISEASE ACTIVITY: 02/21/2023 11/11/2023 03/03/2024 RAPID-3 Weighed Score RAPID 3 Weighed Score 7.89 (High severity ) 6.67 (High severity ) 8.33 (High severity ) Weighed Score Levels: 0 - 1: Near Remission 1.3 - 2.0: Low Severity 2.3 - 4.0: Moderate Severity 4.3 - 10.0: High Severity PAST MEDICAL HISTORY: PAST MEDICAL HISTORY Diagnosis Date Abdominal pain, left lower quadrant long standing Arrhythmia Arthritis Asthma Atrial fibrillation ([facility]) 2009 Atrophic vaginitis Benign neoplasm of colon [...] breast of female, estrogen receptor positive ([facility]) 06/03/2017 Mitral valve disorders(424.0) and irregular heartbeat on occasion stress related Mixed stress and urge urinary incontinence Osteoarthrosis, unspecified whether generalized or localized, other specified sites 07/22 vit D 41 Other diseases of pharynx, not elsewhere classified(478.29) Other extrapyramidal disease and abnormal movement disorder PMH - PAST MEDICAL HISTORY OF benign mass on liver PMR (polymyalgia rheumatica) ([facility]) 2012 Pure hypercholesterolemia Snoring 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 PREDNISONE ORAL Take 10 mg by mouth once daily. Methenamine Hippurate (HIPREX) 1 gram tablet Take 1 tablet by mouth two times a day with meals. estradiol (ESTRACE) 0.01 % (0.1 mg/gram) vaginal cream as needed. PRN FOR DRYNESS modafinil (PROVIGIL) 100 mg tablet Take 100 mg by mouth once daily as needed. traMADol (ULTRAM) 50 mg tablet Take 50 mg by mouth every 6 hours as needed for pain. furosemide (LASIX) 20 mg tablet Take 1 tablet by mouth every other day. senna/docusate sodium (SENNA-C PLUS ORAL) Take 8.6 mg by mouth once daily. Acetaminophen 500 mg cap Take 1,000 mg by mouth three times a day as needed. guaiFENesin (ROBITUSSIN) 100 mg/5 mL syrup Take 200 mg by mouth every 4 hours as needed. FERROUS GLUCONATE ORAL Take 324 mg by mouth once daily. metoprolol succinate ER (TOPROL XL) 25 mg 24 hr tablet Take 1 tablet by mouth once daily. evjcqav-idqpelupp-nxsbaac D3 500 mg-5 mcg (200 unit) per tablet Take 1 tablet by mouth once daily. omeprazole (PRILOSEC) 40 mg capsule Take 1 capsule by mouth once daily. fluticasone (FLONASE) 50 mcg/actuation nasal spray Use 2 Sprays in each nostril once daily. levothyroxine (LEVOXYL) 25 mcg tablet Take 1 tablet by mouth once daily. Take on empty stomach. ForThyroid escitalopram oxalate (LEXAPRO) 10 mg tablet Take [...] No current facility-administered medications for this visit. PHYSICAL EXAMINATION: VIDEO EXAM: (if completed, performed via video enabled technology) GENERAL: alert and appropriate, in no distress, well-hydrated, well nourished, and happy, smiling, interactive RESPIRATORY: breathing non-labored CHEST: equal chest rise with normal respiratory effort EXTREMITIES: no synovitis Reviewed 03/05/2024 and above documentation is unchanged from previous visit Labs/Imaging: Latest Ref Rng & Units 07/04/2023 08/19/2023 11/25/2023 02/24/2024 CBC WBC 3.70 - 11.00 k/uL 10.38 8.26 5.20 9.49 Hemoglobin 11.5 - 15.5 g/dL 13.2 11.6 9.8 8.5 Hematocrit 36.0 - 46.0 % 39.4 34.7 29.7 28.3 Platelet Count 150 - 400 k/uL 151 169 146 243 Abs Neut (ANC) 1.45 - 7.50 k/uL 8.02 6.42 4.13 7.29 Abs Lymph 1.00 - 4.00 k/uL 0.84 0.67 0.54 0.92 Latest Ref Rng & Units 03/14/2022 07/04/2023 11/25/2023 02/24/2024 CMP Sodium 136 - 144 mmol/L 137 138 139 132 Potassium 3.7 - 5.1 mmol/L 3.9 4.5 4.0 4.4 Chloride 98 - 107 mmol/L 104 105 105 101 CO2 22 - 30 mmol/L 24 24 21 21 Glucose 74 - 99 mg/dL 120 85 148 162 BUN 7 - 21 mg/dL 14 19 15 16 Creatinine 0.58 - 0.96 mg/dL 0.63 0.73 0.63 0.67 Calcium 8.5 - 10.2 mg/dL 9.4 9.7 9.3 8.6 AST 13 - 35 U/L 27 43 31 21 ALT 7 - 38 U/L 14 51 22 13 Alkaline Phosphatase 34 - 123 U/L 100 80 80 69 Latest Ref Rng & Units 03/29/2014 Uric Acid Uric Acid 2.0 - 7.0 mg/dL 6.3 Latest Ref Rng & Units 07/10/2021 07/04/2023 11/25/2023 02/24/2024 ESR, WSR WSR 0 - 20 mm/hr 101 49 129 123 Latest Ref Rng & Units 07/10/2021 07/04/2023 11/25/2023 02/24/2024 CRP CRP <0.9 mg/dL 4.7 <0.3 0.6 5.5 Latest Ref Rng & Units 04/29/2013 04/19/2014 04/18/2015 07/08/2021 CK CK 42 - 196 U/L 13 37 47 32 Latest Ref Rng & Units 04/22/2014 07/06/2021 07/09/2021 07/04/2023 RF and CCP Rheumatoid Factor <16 IU/mL 17 62 439 CCP Antibody IgG Qualitative Negative Strong Positive Strong Positive CCP Antibody, IgG <20 Units 44 105 >250 Latest Ref Rng & Units 02/09/2021 03/06/2021 07/05/2021 07/04/2023 Hepatitis Screen Hep A Ab, IgM Negative Negative Hep B Core Ab, IgM Negative Negative Negative Hep B Core Ab, Total Negative Positive Positive Negative Hep B Surf Ab Qual Negative Negative Hep C Antibody IA Negative Negative Negative Hep B Surface Ag Negative Negative Negative Negative 01/02/2021 07/04/2023 TB Screen TB Interpretation No evidence of current or previous infection with Mycobacterium tuberculosis. This result is indeterminate for Mycobacterium tuberculosis complex antigen responsiveness. Specimens from immunocompromised patients, those <5 years of age, and those with a known recent exposure mayfall under this category. Please correlate with clinical picture and other alternative assessments. TB Result Negative Indeterminate Latest Ref Rng & Units 08/13/2021 10/13/2021 10/16/2021 10/16/2021 Antibodies PT Sec 9.7 - 13.0 sec 20.1 19.7 PT INR 0.9 - 1.3 2.0 4.8 2.1 (biotel) 1.9 This result is from an external source. Latest Ref Rng & Units 08/30/2021 09/26/2021 01/02/2022 2022 Urinalysis PROTEIN UA (POCT) Negative mg/dL Negative Negative Negative Negative XR feet 12/29 Bilateral calcaneal spurs and mild hypertrophic changes to LEFT first metatarsal head. XR hands 07/11/14 There are diffuse degenerative changes bilaterally greater in the first carpometacarpal and STT joints with narrowing of the joint space and osteophyte formation. There is no erosion, periosteal reaction or soft tissue swelling. Mineralization is normal. XR left shoulder 08/16/15 FINDINGS: There has been interval increase in the osteophyte of the inferior left glenohumeral joint. Mild to moderate joint space narrowing is unchanged. Moderate AC joint degenerative change, unchanged. The acromiohumeral interval is maintained. Surgical clips in the left axilla, unchanged. XR shoulders reviewed from 06/20/20 Significant glenohumeral joint space narrowing with large inferior humeral head osteophyte, more advanced than previous. Narrowing with mild spurring at the AC joint, also more advanced than previous. Acromiohumeral distance is maintained. No fracture or dislocation. ASSESSMENT: 1. Rheumatoid arthritis involving multiple sites, unspecified whether rheumatoid factor present (HCC) - ICD9: 714.0, ICD10: M06.9 (primary diagnosis) She still has high disease activity and remains on prednisone 10 mg/day Plaquenil stopped last visit due to rash and itching. Infliximab IV was started in August and she hasn't felt any added benefit from this so we have decided to stop these Increase prednisone back to 15 mg daily, 20 mg on days when pain is worse. [facility] She is getting a CT scan to screen for recurrence of breast cancer (particularly concerned for GIT malignancy given LEIA) Avoid hepatotoxic meds (methotrexate/Arava) 2. 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 Reclast #1 12/11/23 3. Medication monitoring encounter - ICD9: V58.83, ICD10: Z51.81 - drug therapy requiring routine lab work every 3 months to screen for drug toxicity (Some elements copied from my prior note, which have been updated where appropriate, and all reflect current medical decision making from today, 03/05/2024) Follow-up 3 months Thalia Monterroso MD * Nicole Childs MA - 03/05/2024 8:25 AM EST Zoom Daughter Eloisa ([email or web address]) will be with her at the facility to do the virtual visit. Patient had a fall 2 days ago Pain in left hip and left shoulder. They did xray of left hip and reported back to daughter as no fracture. She was having pain in these areas before the fall but now pain is worse. She is currently taking prednisone 10 mg daily Reflexis infusions (started 08/28/23, most recent infusion 01/28/24) [facility], getting tramadol 50 mg every 6 hours Tylenol 1000 mg three times a day Increased short term prednisone has been given in the past which does help on higher doses but whenshe weans back down pain returns. Widespread pain is between 8-10 from head to toe. Daughter not sure if this all related to rheumatology or onc. Plaquenil caused a rash, they stopped it 11/14/23 and rash resolved. Had reclast infusion 12/11/23 Daughter reports a decline in health She is anemic, had 1 iron infusion 02/27/24 and her pain seemed to even be worse after that, was supposed to get 4 more infusion but patient had declined the last 2 infusions. She is getting CT ab/chest and b/l hip xrays on 03/19/24 to look for mets [facility] Telephone encounter Note * Telephone Encounter - Cassidy Arreola APRN.CNP - 03/03/2024 9:56 AM EST Noted. Cassidy Arreola APRN.INGE [facility] Work Phone: [phone] Miscellaneous Notes* Telephone Encounter - Cassidy Arreola APRN.CNP - 03/03/2024 9:56 AM EST Noted. Cassidy Arreola APRN.TRAINING PROGRAM DEVELOPER * Telephone Encounter - Sadie Gann LPN - 03/02/2024 4:37 PM EST Spoke with pt. Daughter , she informed she is not sure if RA is the cause of pt. Pain, or if it is from the iron infusions. CRP and Sed rates are both elevated, they have appt. With line assigner onFriday . Will keep appts. 03/08 and 03/12 unless she becomes more painful , will have CT scans on 03/19 , and depending on those results will make a decision to proceed further or stop. Sadie Gann LPN * Telephone Encounter - Meredith Alonzo - 03/02/2024 4:29 PM EST Spoke with patient's daughter. They are not sure if the pain is from her RA of if her cancer is active again. Cancelled the 2 appointments that were requested. Patient is seeing line assigner on Friday. Transferred call to nurse. Meredith Alonzo * Telephone Encounter - Anneliese Garcia LPN - 03/02/2024 4:12 PM EST Tried to call daughter, no answer. Wanted to see if her pain was from her rheumatoid arthritis, which Cassidy noted in her OV on 02/24/24. Please assist in rescheduling. Anneliese Garcia LPN * Telephone Encounter - Alvina Mane - 03/02/2024 4:01 PM EST Daughter is calling to state patient is in a lot of pain, hard to even get out of her chair. They want to cancel 03/03 and 03/05 and would like to get those visits rescheduled. documented in [facility]St[facility] Telephone encounter Note * Telephone Encounter - Sadie Gann LPN - 03/02/2024 4:37 PM EST Spoke with pt. Daughter , she informed she is not sure if RA is the cause of pt. Pain, or if it is from the iron infusions. CRP and Sed rates are both elevated, they have appt. With line assigner onFriday . Will keep appts. 03/08 and 03/12 unless she becomes more painful , will have CT scans on 03/19 , and depending on those results will make a decision to proceed further or stop. Sadie Gann LPN [facility] Telephone encounter Note* Telephone Encounter - Meredith Alonzo - 03/02/2024 4:29 PM EST Spoke with patient's daughter. They are not sure if the pain is from her RA of if her cancer is active again. Cancelled the 2 appointments that were requested. Patient is seeing line assigner on Friday. Transferred call to nurse. Meredith Alonzo [facility]12-17-2024 Telephone encounter Note* Telephone Encounter - Anneliese Garcia LPN - 03/02/2024 4:12 PM EST Tried to call daughter, no answer. Wanted to see if her pain was from her rheumatoid arthritis, which Cassidy noted in her OV on 02/24/24. Please assist in rescheduling. Anneliese Garcia LPN [facility]12-17-2024 Telephone encounter Note* Telephone Encounter - Alvina Mane - 03/02/2024 4:01 PM EST Daughter is calling to state patient is in a lot of pain, hard to even get out of her chair. They want to cancel 03/03 and 03/05 and would like to get those visits rescheduled. [facility]12-10-2024 History of Present illness Narrative* Cassidy Arreola APRN.INGE - 02/24/2024 1:49 PM EST Chief Complaint Patient presents with: Established Patient HPI: Christian Landrum is a 88 year old female who presents here today for follow up LEIA/breast cancer. Per Dr. Bonilla's previous note: H/o underwent a left-sided simple mastectomy for a T2 N0 stage IIA hormone- receptor negative by IHC(positive by RT-PCR testing), HER-2 nonamplified breast cancer. [...] for both; strong for ER, moderate for [place]). HER-2 3+. Had been using Estrace cream [...] negative for malignancy (0/1). SYNOPTIC REPORT OF HEREDIA PATHOLOGIC FINDINGS RIGHT BREAST MASTECTOMY: Part: B Specimen Laterality: Right Procedure: Total mastectomy (including nipple and skin) Wire Localization: Wire absent Lymph Node Sampling: [place] lymph node(s) Tumor size: Size of largest [...] tamoxifen therapy. S/p underwent hysteroscopy D&C at [facility] on 08/23/[address] Hebert. Path. Benign. Pt. resides at [facility]. Pt. here today with her daughter. Drop in Hgb. +stool cards. +abd pain/bloating. Allover pain. H/o RA. Appetite:Normally good. Last night not good. Wt. up 9# over past year. Energy level:Not a lot. Denies low grade fevers recently. Resp:denies cough or sob, occ jennings-followed by PULM-using bi-pap, h/o allergies Cardiac:denies chest pain/palpitations h/o A.fib.-followed by Cards GI:denies abd pain (H/o IBS, colitis), n/v, moving bowels regularly-does not tolerate dairy, stool cards positive in November-pt declines colonoscopy :denies dysuria/hematuria-chronic UTI-followed by Urology Extrem:h/o RA, joint pain dx in her 40's -followed by Rheum-off of methotrexate, occ. pred bursts for RA flares-on pred currently Endo:denies hot flashes Neuro:+neuropathy to feet I still feel it sometimes. Skin:denies rashes/lesions Heme:denies nose bleeds or obvious rectal bleeding, +stool cards as above The ROS is otherwise negative. Past medical history, appointments, medications, allergies reviewed. No changes. EXAM: BP 125/73 Pulse 87 Temp 36.9 C (98.5 F) Wt 84.8 kg (187 lb) SpO2 97% BMI 31.12 kg/m APPEARANCE fatigued appearing, alert, in no acute distress, well-hydrated, well nourished. HEART RRR with normal S1 and S2, no murmurs LUNG clear to auscultation BREAST FEMALE b/l mastectomy scars, no nodules, R lateral chest tenderness near end of scar LYMPH NODES No cervical lymphadenopathy, No supraclavicular lymphadenopathy, and No axillary lymphadenopathy. ABDOMEN bowel sounds normoactive, soft, mild tenderness L side EXTREMITIES trace edema BLE NEURO Awake, alert and oriented x 3, using wheeled walker, and No involuntary motions. SKIN Skin color, texture, turgor normal, no suspicious rashes or lesions LABS: Latest Ref Rng 08/19/2023 11/25/2023 02/24/2024 WBC 3.70 - 11.00 k/uL 8.26 5.20 9.49 RBC 3.90 - 5.20 m/uL 3.50 (L) 2.97 (L) 3.03 (L) Hemoglobin 11.5 - 15.5 g/dL 11.6 9.8 (L) 8.5 (L) Hematocrit 36.0 - 46.0 % 34.7 (L) 29.7 (L) 28.3 (L) MCV 80.0 - 100.0 fL 99.1 100.0 93.4 MCH 26.0 - 34.0 pg 33.1 33.0 28.1 MCHC 30.5 - 36.0 g/dL 33.4 33.0 30.0 (L) RDW-CV 11.5 - 15.0 % 14.6 15.0 15.2 (H) Platelet Count 150 - 400 k/uL 169 146 (L) 243 MPV 9.0 - 12.7 fL 8.7 (L) 8.9 (L) 9.0 Neut% % 77.8 79.4 76.9 Abs Neut (ANC) 1.45 - 7.50 k/uL 6.42 4.13 7.29 Lymph% % 8.1 10.4 9.7 Abs Lymph 1.00 - 4.00 k/uL 0.67 (L) 0.54 (L) 0.92 (L) [place]% % 12.3 8.8 12.1 Abs [place] <0.87 k/uL 1.02 (H) 0.46 1.15 (H) Eosin% % 0.8 0.4 0.4 Abs Eosin <0.46 k/uL 0.07 <0.03 0.04 Baso% % 0.6 0.6 0.4 Abs Baso <0.11 k/uL 0.05 0.03 0.04 Immature Gran % % 0.4 0.4 0.5 IMMATURE GRANS (ABS) <0.10 k/uL 0.03 <0.03 0.05 NRBC /100 WBC 0.0 0.0 0.0 Absolute nRBC <0.01 k/uL <0.01 <0.01 <0.01 DTYPE Auto Auto Auto Iron studies: Pending ASSESSMENT/PLAN: 1. 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 H/o Stage IIA left sided breast cancer. Received 3 cycles of TC. Completed 5 years' worth of AI/tamoxifen. 2. Iron deficiency anemia due to chronic blood loss - ICD9: 280.0, ICD10: D50.0 - New abd pain/bloating, +stool cards. b/l hip pain, R lateral chest/scar tenderness. - Reviewed CBC with pt. and daughter. - Iron studies pending. - Tolerated tamoxifen well. - Completed 5 years tamoxifen 2021. - Continue follow up with her specialists. - Needs port flushes. - CT chest/abd/pelvis soon. Creatinine day of CT's. - Xray of hips on day of CT's. - Need iron sucrose soon. - Repeat CBC/iron studies in 2 months after last dose of iron. - Follow up in 6 months with CBC/iron studies-pending today's labs. - Pt. aware to call office any questions/concerns. The sensitive examination was discussed with the Patient or Patient's Authorized Residential 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. Asapplicable, any other physician, advance practice provider, medical student, or other health professional student that will be observing or involved in the sensitive examination for educational or training purposes was discussed with the Patient or Authorized Residential 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. The Patient or Authorized Residential 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 has agreed to proceed with the sensitive examination. (Sensitive examination includes inspection and/or palpation of the breasts, pelvis, prostate and anorectal regions) The patient indicates understanding of these issues and agrees with the plan. All documentation from previous visit of 08/19/23-Dr. Bonilla/myself was copied and pasted, documentation has been reviewed and edited as necessary for today's visit. Cassidy Arreola APRN.TRAINING PROGRAM DEVELOPER documented in [facility] encounter[facility]12[facility] History of Present illness Narrative* Vania Horan RN - 02/24/2024 8:07 AM EST . documented in this encounterSt[facility]11-[facility]24 Telephone encounter Note * Telephone Encounter - Nicole Childs MA - 01/23/2024 4:33 PM EST Spoke with louisa Informed her of increased prednisone instructions and I will also fax this phone encounter. Louisa will speak with patients daughter for them to take note if they feel she has a flare up 1-2 weeks prior to infusion [facility] Miscellaneous Notes* Telephone Encounter - Nicole Childs MA - 01/23/2024 4:33 PM EST Spoke with louisa Informed her of increased prednisone instructions and I will also fax this phone encounter. Louisa will speak with patients daughter for them to take note if they feel she has a flare up 1-2 weeks prior to infusion * Telephone Encounter - Thalia Monterroso MD - 01/23/2024 3:22 PM EST She can increase to 40 mg for 3 days, 30 mg for 3 days, 20 mg for 3 days, then back to 10 mg. Is she feeling the infusions wearing off early? She is due for one next week. Please let me know if she'dlike to try to increase her dose. * Telephone Encounter - Childs Nicolejuma Lazo MA - 01/23/2024 3:03 PM EST Spoke with nursing staff Louisa Patient has had a generalized increase in pain for 1-2 weeks. No illnesses, no fevers Louisa states she does see swelling in b/l wrists and hands Patient is currently on prednisone 10 mg daily and she has been on this dose since 11/14/23 If prescription is needed it will [facility] to [facility] We will also need to fax documentation of Dr. Monterroso's instructions to the facility at [phone] Last ov 11/14/23 Rheumatoid arthritis involving multiple sites, unspecified whether rheumatoid factor present (HCC) - ICD9: 714.0, ICD10: M06.9 (primary diagnosis) She still has moderate disease activity and remains on prednisone 10 mg/day Plaquenil started 04/2023 - will stop this today due to itching (only new med besides the infliximab) Will hold the 4th dose of infliximab until her arm wound is better healed. Increase prednisone back to 10 mg daily Stop plaquenil. Avoid hepatotoxic meds (methotrexate/Arava) Latest Ref Rng 11/25/2023 WBC 3.70 - 11.00 k/uL 5.20 RBC 3.90 - 5.20 m/uL 2.97 (L) Hemoglobin 11.5 - 15.5 g/dL 9.8 (L) Hematocrit 36.0 - 46.0 % 29.7 (L) MCV 80.0 - 100.0 fL 100.0 MCH 26.0 - 34.0 pg 33.0 MCHC 30.5 - 36.0 g/dL 33.0 RDW-CV 11.5 - 15.0 % 15.0 Platelet Count 150 - 400 k/uL 146 (L) MPV 9.0 - 12.7 fL 8.9 (L) Neut% % 79.4 Abs Neut (ANC) 1.45 - 7.50 k/uL 4.13 Lymph% % 10.4 Abs Lymph 1.00 - 4.00 k/uL 0.54 (L) [place]% % 8.8 Abs [place] <0.87 k/uL 0.46 Eosin% % 0.4 Abs Eosin <0.46 k/uL <0.03 Baso% % 0.6 Abs Baso <0.11 k/uL 0.03 Immature Gran % % 0.4 IMMATURE GRANS (ABS) <0.10 k/uL <0.03 NRBC /100 WBC 0.0 Absolute nRBC <0.01 k/uL <0.01 DTYPE Auto Protein, Total 6.3 - 8.0 g/dL 8.0 Albumin 3.9 - 4.9 g/dL 3.5 (L) Calcium 8.5 - 10.2 mg/dL 9.3 Bilirubin, Total 0.2 - 1.3 mg/dL 0.6 Alkaline Phosphatase 34 - 123 U/L 80 AST 13 - 35 U/L 31 ALT 7 - 38 U/L 22 Glucose 74 - 99 mg/dL 148 (H) BUN 7 - 21 mg/dL 15 Creatinine 0.58 - 0.96 mg/dL 0.63 Sodium 136 - 144 mmol/L 139 Potassium 3.7 - 5.1 mmol/L 4.0 Chloride 98 - 107 mmol/L 105 CO2 22 - 30 mmol/L 21 (L) Anion Gap 8 - 15 mmol/L 13 eGFR >=60 mL/min/1.73m 86 WSR 0 - 20 mm/hr 129 (H) CRP <0.9 mg/dL 0.6 Legend: (L) Low (H) High * Telephone Encounter - Selma Mcdaniel - 01/23/2024 12:31 PM EST Louisa, nurse at [facility] facility, feels patient may be having a flare. Has lots of pain in herhands. Asking for call back please. Louisa at [facility] [phone] Thanks! DHEERAJ Leyva documented in this encounterSt. [facility]11-[facility]-2024 Telephone encounter Note * Telephone Encounter - Thalia Monterroso MD - 01/23/2024 3:22 PM EST She can increase to 40 mg for 3 days, 30 mg for 3 days, 20 mg for 3 days, then back to 10 mg. Is she feeling the infusions wearing off early? She is due for one next week. Please let me know if she'dlike to try to increase her dose. [facility] Telephone encounter Note* Telephone Encounter - Nicole Childs MA - 01/23/2024 3:03 PM EST Spoke with nursing staff Louisa Patient has had a generalized increase in pain for 1-2 weeks. No illnesses, no fevers Louisa states she does see swelling in b/l wrists and hands Patient is currently on prednisone 10 mg daily and she has been on this dose since 11/14/23 If prescription is needed [facility] to [facility] We will also need to fax documentation of Dr. Monterroso's instructions to the facility at [phone] Last ov 11/14/23 Rheumatoid arthritis involving multiple sites, unspecified whether rheumatoid factor present (HCC) - ICD9: 714.0, ICD10: M06.9 (primary diagnosis) She still has moderate disease activity and remains on prednisone 10 mg/day Plaquenil started 04/2023 - will stop this today due to itching (only new med besides the infliximab) Will hold the 4th dose of infliximab until her arm wound is better healed. Increase prednisone back to 10 mg daily Stop plaquenil. Avoid hepatotoxic meds (methotrexate/Arava) Latest Ref Rng 11/25/2023 WBC 3.70 - 11.00 k/uL 5.20 RBC 3.90 - 5.20 m/uL 2.97 (L) Hemoglobin 11.5 - 15.5 g/dL 9.8 (L) Hematocrit 36.0 - 46.0 % 29.7 (L) MCV 80.0 - 100.0 fL 100.0 MCH 26.0 - 34.0 pg 33.0 MCHC 30.5 - 36.0 g/dL 33.0 RDW-CV 11.5 - 15.0 % 15.0 Platelet Count 150 - 400 k/uL 146 (L) MPV 9.0 - 12.7 fL 8.9 (L) Neut% % 79.4 Abs Neut (ANC) 1.45 - 7.50 k/uL 4.13 Lymph% % 10.4 Abs Lymph 1.00 - 4.00 k/uL 0.54 (L) [place]% % 8.8 Abs [place] <0.87 k/uL 0.46 Eosin% % 0.4 Abs Eosin <0.46 k/uL <0.03 Baso% % 0.6 Abs Baso <0.11 k/uL 0.03 Immature Gran % % 0.4 IMMATURE GRANS (ABS) <0.10 k/uL <0.03 NRBC /100 WBC 0.0 Absolute nRBC <0.01 k/uL <0.01 DTYPE Auto Protein, Total 6.3 - 8.0 g/dL 8.0 Albumin 3.9 - 4.9 g/dL 3.5 (L) Calcium 8.5 - 10.2 mg/dL 9.3 Bilirubin, Total 0.2 - 1.3 mg/dL 0.6 Alkaline Phosphatase 34 - 123 U/L 80 AST 13 - 35 U/L 31 ALT 7 - 38 U/L 22 Glucose 74 - 99 mg/dL 148 (H) BUN 7 - 21 mg/dL 15 Creatinine 0.58 - 0.96 mg/dL 0.63 Sodium 136 - 144 mmol/L 139 Potassium 3.7 - 5.1 mmol/L 4.0 Chloride 98 - 107 mmol/L 105 CO2 22 - 30 mmol/L 21 (L) Anion Gap 8 - 15 mmol/L 13 eGFR >=60 mL/min/1.73m 86 WSR 0 - 20 mm/hr 129 (H) CRP <0.9 mg/dL 0.6 Legend: (L) Low (H) High [facility]11-08-2024 Telephone encounter Note* Telephone Encounter - Selma Mcdaniel - 01/23/2024 12:31 PM EST Louisa, nurse at [facility], feels patient may be having a flare. Has lots of pain in herhands. Asking for call back please. Louisa at [facility] [phone] Thanks! Selma Mcdaniel, PSS [facility]09-26-2024 History of Present illness Narrative* Andria Joyner RN - 12/11/2023 11:27 AM EDT Denies any dental issues or concerns. No extractions or root canals in the last 6 months. Daughter present. Andria Joyner RN [facility] History of Present illness Narrative* Cesia Rangel RN - 12/04/2023 10:22 AM EDT Secure chat, as well as Page sent to Dr. Monterroso regarding Reclast. Unable to reach at this time. Daughter aware and ok with waiting until next tx. Cesia Rangel RN documented in [facility] Telephone encounter Note * Telephone Encounter - Sadie Gann LPN - 11/26/2023 11:51 AM EDT Faxed, spoke with chetan at [facility] , they did receive. Sadie Gann LPN [facility]09-11-2024 Miscellaneous Notes* Telephone Encounter - Sadie Gann LPN - 11/26/2023 11:51 AM EDT Faxed, spoke with chetan at [facility] , they did receive. Sadie Gann LPN * Telephone Encounter - Page Robles - 11/26/2023 10:39 AM EDT Received call from [facility]. They stated a fax came thru this morning, however, they only received Cover Page. Please resubmit. [phone] * Telephone Encounter - Sadie Gann LPN - 11/26/2023 9:43 AM EDT spoke with pts. POA, given information concerning her iron studies. Also informed Dr. Bonilla notation was sent to [facility] attn: herminia horner so additional labs can be done. Daughter voiced understanding. Sadie Gann LPN * Telephone Encounter - Sal Bonilla DO - 11/25/2023 5:06 PM EDT We will see what her iron studies from today show but being low on iron would not be a contraindication to Reclast. The MCV is elevated so that suggests a cause other than just iron deficiency causing the anemia (and she is no longer on MTX which can cause macrocytic anemia as well). She needs a check of her retic count, B12, MMA, serum folate, TSH and copper level. Sal Bonilla DO * Telephone Encounter - Anneliese Garcia LPN - 11/25/2023 1:52 PM EDT Pt here today for labs. Daughter brings labs and note from Herminia Horner [employer] [facility]. Daughter states -pt has had a drop in her Hgb to 9.9 from 11/03/23. (labs and note placed on your desk) -Pt has occult blood x 3 but pt does not want a colonoscopy. -Saw Dr Loc gates on 11/14/23, adding Reclast. -Pt having Iron studies drawn today. daughter asking if pt needs iron infusions prior to starting Reclast. Will need to let [facility] (fax [phone]) and daughter Eloisa. Anneliese Garcia LPN documented in [facility] encounterSt[facility] Telephone encounter Note * Telephone Encounter - Page Robles - 11/26/2023 10:39 AM EDT Received call from [facility]. They stated a fax came thru this morning, however, they only received Cover Page. Please resubmit. [phone] [facility] Work Phone: 1(165) 902-436509-11-2024 Telephone encounter Note* Telephone Encounter - Sadie Gann LPN - 11/26/2023 9:43 AM EDT spoke with pts. SLAUGHTER, given information concerning her iron studies. Also informed Dr. Bonilla notation was sent to [facility] attn: herminia horner so additional labs can be done. Daughter voiced understanding. Sadie Gann LPN [facility]-10-2024 Telephone encounter Note* Telephone Encounter - Sal Bonilla DO - 11/25/2023 5:06 PM EDT We will see what her iron studies from today show but being low on iron would not be a contraindication to Reclast. The MCV is elevated so that suggests a cause other than just iron deficiency causing the anemia (and she is no longer on MTX which can cause macrocytic anemia as well). She needs a check of her retic count, B12, MMA, serum folate, TSH and copper level. Sal Bonilla DO [facility]09-10-2024 Telephone encounter Note* Telephone Encounter - Anneliese Garcia LPN - 11/25/2023 1:52 PM EDT Pt here today for labs. Daughter brings labs and note from Herminia Horner [employer] from [facility]. Daughter states -pt has had a drop in her Hgb to 9.9 from 11/03/23. (labs and note placed on your desk) -Pt has occult blood x 3 but pt does not want a colonoscopy. -Saw Dr Loc gates on 11/14/23, adding Reclast. -Pt having Iron studies drawn today. daughter asking if pt needs iron infusions prior to starting Reclast. Will need to let [facility] (fax [phone]) and daughter Eloisa. Anneliese Garcia LPN [facility]09-10-2024 Telephone encounter Note* Telephone Encounter - Sal Bonilla DO - 11/25/2023 12:00 PM EDT Thank you. Filed. Sal Bonilla DO [facility]09-10-2024 Miscellaneous Notes* Telephone Encounter - Sal Bonilla DO - 11/25/2023 12:00 PM EDT Thank you. Filed. Sal Bonilla DO * Telephone Encounter - Anneliese Garcia LPN - 11/25/2023 11:56 AM EDT Pended lab orders. Anneliese Garcia LPN documented in this encounterSt. [facility]09-[facility]-2024 Telephone encounter Note * Telephone Encounter - Anneliese Garcia LPN - 11/25/2023 11:56 AM EDT Pended lab orders. Anneliese Garcia LPN [facility]08-30-2024 History of Present illness Narrative* Thalia Monterroso MD - 11/14/2023 10:55 AM EDT Images from the original note were not included. RHEUMATOLOGY CLINIC FOLLOW-UP NOTE PROVIDER: Thalia Monterroso MD DISTANCE HEALTH VISIT This Team Access Model visit is a virtual encounter. It required patient- provider interaction for the medical decision making as documented below. I have communicated my name and active licensure. The patient's identity and physical location wereverified at the time of this visit. Either the patient or their legal assistance representative has been informed of the risks and benefits of -- and alternatives to -- treatment through a remote evaluation andconsents to proceed with the evaluation remotely. SUBJECTIVE: CC: routine follow up for RA (CCP 44, RF neg, non-erosive) Last seen: 07/04/2023 (with Thalia Monterroso) Current treatment: Prednisone 6 mg/day Plaquenil 200 mg BID - started 04/2023 Infliximab 200 mg - started 08/28/23 Prior Medications: MTX 8 tablets weekly and folic acid 1 mg daily; recently dose decreased to 6 tabs/week in 02/2020 -stopped due to cirrhosis Brief History of Present Illness: 80 WF with PMHx significant for h/o L BrCa (Dx 2007) s/p mastectomy & Chemo-Rx with recurrence in 2016 s/p surgical excision, OA (hands & knees), chronic AF on A/C & beta-nahun, and OSAon CPAP, recurrent diverticulitis and bowel resection who is seen in the Rheumatology Clinic for follow up of PMR and RA. She has been on steroids for PMR since Dec 2012 (elevated ESR and CRP at the t neelam). She started to develop symptoms of inflammatory arthritis in Apr 2014 and was started on methotrexate then. She has borderline CCP positivity and negative radiographs. She has a history or RA that was diagnosed over 20 years ago and only treated with anti-inflammatories historically. She saysit was largely in remission until early 2014. Plaquenil was added in October 2014. At her last visit we increased MTX from 6 to 8 tablets weekly. Joint pain is better. She doesn't notice swollen joints. Has a little bit of AM stiffness. Primarily the left shoulder bothers her. She has already done physical therapy and is considering getting a steroid injection locally Has right flank pain of the right rib over the last 2 months which has worsened She took mesalamine for 1 month for diverticulitis which did help her abdominal pain October 18, 2016: since her last visit she decided to stop hydroxychloroquine bc she thought it may be causing side effects. Complains of hair loss. She has also had some recent bouts of weakness and dizziness. She hsa seen cardiology and ENT and he is suspicions of her BP being too low. Metop dose was cut back. She isn't taking tramadol and she rarely takes tylenol. Her joint pain comes and goes. She does occasionally have knee or shoulder pain. She doesn't have significant AM stiffness. She doesn't have swollen joints. May 09, 2017: she has not noticed any change in her joint pain since stopping hydroxychloroquine in September 2016. She complains of intermittently arthralgias with stinging sharp intermittent pain of the left wrist (wihtout swelling), tenderness of CMC's, occasional shoulder pain, knee pain, and neck stiffness. She denies having swollen joints. She is tolerating the methotrexate well. 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 She takes tylenol only on occasion (not regularly). October 10, 2017 she feels like in general her pain is well controlled. A few months ago she developedsevere neck pain. Eventually it calmed down, she started physical therapy this week No joint swelling, no morning stiffness. rheumatoid arthritis has been well controlled. Tolerating methotrexate well. March 13, 2018 rheumatoid arthritis is well controlled. She is occasional joint and muscle pain in various places that come and go. She takes tylenol as needed but admits to rarely using this. Anthonybradins on methotrexate and is tolerating it well. September 30, 2018: she complains of more hand pain and stiffness overall. Describes pain in hands, CMC joints, shoulders, and knees. Still taking methotrexate 8 tabs weekly. She hasn't hd any flares. Sheis tolerating meds well. She complains of increased hair loss. March 26, 2019 complains of more pain in her hands and fingers. +morning stiffness, has trouble making a fist in the AM. Also complains of more shoulder pain. Is having trouble doing shoulder exercises in the water due to pain. Several finger joints swell. She applies voltaren to the fingers whenthey swell. September 24, 2019 she admits she has had a lot of problems with her hands lately. Comes and goes. She has been getting trigger fingers, sees a hand specialist. She has a lot of pain in her left shoulder,sometimes can't sleep on the left side at night. She complains of chronic low back pain. Denies having any flares. Prolonged AM stiffness takes about an hour to loosen up. March 24, 2020 since last visit she has had 5 flares which lasted about 2 days each. She would have fevers as high as 101, normally around 100. Last one was 03/04/20. The flares were associated with low grade fevers and widespread myalgias. She denies overt joint swelling. She has been on methotrexate 6 tabs for 3 weeks at a lower dose due to elevated liver tests. She says she has 3 fingers that need surgery due to triggering. She doesn't appreciate swelling in her hands. She was having night sweats during her flares. No weight loss. She takes tylenol as needed not on a daily basis. July 21, 2020 she has been having more activity from rheumatoid arthritis. Ankles swollen, multiple joint pain all over. She recently took a medrol dose pack which significantly helped. April 13, 2021 methotrexate was stopped due to having developed cirrhosis of the liver. She has been off methotrexate for about 3 months. Overall she admits she is doing ok. She doesn't notice an increase in joint pain. She does get occasional flare ups that may last a couple of days. February 24, 2023 last visit with her was nearly 2 years ago. She stopped methotrexate due to a diagnosis of cirrhosis. She has been staying in an assisted living. Overall she was doing ok until a few weeks ago. She developed acute onset of widespread pain (difficult for her to localize). She was given a course of prednisone which she recalls immediately relieved the pain. As soon as she stops the prednisone the pain returns. She has now had 3 courses of prednisone like this. Admits she has pain in shoulders and hips. She denies headaches, vision changes or jaw pain. She is currently on a prednisone taper and is on 20 mg/day, says right now she feels well. July 04, 2023 SHe has been on a prednisone taper since February. She had trouble tapering down andin April we restarted a slower taper starting back at 15 mg. She admits she has been having a great deal of pain in shoulders, knees, wrists, hands. She is having swelling of the knees and of the right wrist. Assoc with morning stiffness. Plaquenil started in 04/2023, she is now down to 10 mg of prednisone. She had bilateral knee injections last week November 14, 2023 infliximab infusions started in August. She has had 3 doses. She feels it is slowly helping. Prednisone down to 6 mg daily. She has a wound on her arm that has been very slow to heal and she worries it may be due to the infusion. Also complains of itching. REVIEW OF SYSTEMS: Answers submitted by the patient for this visit: Review of Systems Rheumatology (Submitted on 11/11/2023) Fever : No Recent unintentional weight change: No Eye pain: No Eye redness: No Vision Disturbance: No Eye Dryness: Yes Nosebleeds: No Sores in your mouth: No Trouble Swallowing: No Dry Mouth: Yes Chest pain: No Leg Swelling: Yes A cough: No Shortness of breath: Yes Pain with breathing: No Heartburn: No Abdominal pain: No Diarrhea: No Black tarry stools: No Blood in urine: No Pain or burning with urination: No Joint pain or stiffness: Yes Muscle weakness: Yes Muscle aches: Yes Joint swelling: Yes Morning Stiffness in Joints: Yes A rash: No Skin Color Changes: Yes Hair Loss: Yes Nail Changes: No Headaches: No Numbness: Yes Memory Loss: Yes Swollen Glands: No RAPID 3: DISEASE ACTIVITY: Weighed Score Levels: 0 - 1: Near Remission 1.3 - 2.0: Low Severity 2.3 - 4.0: Moderate Severity 4.3 - 10.0: High Severity 04/09/2021 02/21/2023 11/11/2023 RAPID-3 Weighed Score RAPID 3 Weighed Score 4.44 (High severity ) 7.89 (High severity ) 6.67 (High severity ) PAST MEDICAL HISTORY: PAST MEDICAL HISTORY No date: Abdominal pain, left lower quadrant Comment: long standing No date: Arrhythmia No date: Arthritis No date: Asthma 2009: Atrial fibrillation (HCC) No date: Atrophic vaginitis No date: Benign neoplasm of colon 2013: C. 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 Tachycardia -05/2009 No date: History of recurrent UTIs 06/2007: HX OF BREAST CANCER Comment: breast cancer left No date: Hypertension No date: Irritable bowel syndrome No date: Lumbago 06/03/2017: Malignant neoplasm of lower-inner quadrant of right breast of female, estrogen receptor positive (HCC) No date: Mitral valve disorders(424.0) Comment: and irregular heartbeat on occasion stress related No date: Mixed stress and urge urinary incontinence No date: Osteoarthrosis, unspecified whether generalized or localized, other specified sites Comment: 07/22 vit D 41 No date: Other diseases of pharynx, not elsewhere classified(478.29) No 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 No date: PMH - PAST MEDICAL HISTORY OF Comment: benign mass on liver 2012: PMR (polymyalgia rheumatica) (HCC) No date: Pure hypercholesterolemia No date: Snoring 09/29/2017: Squamous cell cancer of scalp and skin of neck Comment: scalp No date: Symptomatic menopausal or female climacteric states Comment: IN HER 50S 05/22 NORMAL BONE DENSITY No date: Syncope No date: Thyroid disease 04/2007: TUBULAR ADENOMA Comment: TA No date: Unspecified hemorrhoids without mention of complication Comment: Hemorrhoids No date: Unspecified sleep apnea Comment: use CPAP SEVERAL YRS 2013: UTI (lower urinary tract infection) Comment: frequent MEDICATIONS: Current Outpatient Medications Medication Sig polyethylene glycol 3350 (MIRALAX) 17 gram/dose powder Take 17 g by mouth once daily as needed for constipation. Dissolve dose in 4 - 8 ounces of liquid and take as directed. dextran 70/hypromellose (ARTIFICIAL TEARS, PF, OPHTHALMIC) Use 1 Drop in eyes every 4 hours as needed. PREDNISONE ORAL Take 9 mg by mouth once daily. diclofenac (VOLTAREN ARTHRITIS PAIN) 1 % topical gel Apply 4 g to affected area four times a day asneeded. Methenamine Hippurate (HIPREX) 1 gram tablet Take 1 tablet by mouth two times a day with meals. hydrOXYchloroQUINE (PLAQUENIL) 200 mg tablet Take 1 tablet by mouth two times a day. estradiol (ESTRACE) 0.01 % (0.1 mg/gram) vaginal cream as needed. PRN FOR DRYNESS adalimumab (HUMIRA,CF, PEN) 40 mg/0.4 mL pen kit Inject 40 mg (1 pen) subcutaneously every 2 weeks. modafinil (PROVIGIL) 100 mg tablet Take 100 mg by mouth once daily as needed. traMADol (ULTRAM) 50 mg tablet Take 50 mg by mouth every 6 hours as needed for pain. furosemide (LASIX) 20 mg tablet Take 1 tablet by mouth every other day. senna/docusate sodium (SENNA-C PLUS ORAL) Take 8.6 mg by mouth once daily. Acetaminophen 500 mg cap Take 1,000 mg by mouth three times a day as needed. guaiFENesin (ROBITUSSIN) 100 mg/5 mL syrup Take 200 mg by mouth every 4 hours as needed. FERROUS GLUCONATE ORAL Take 324 mg by mouth once daily. metoprolol succinate ER (TOPROL XL) 25 mg 24 hr tablet Take 1 tablet by mouth once daily. zpfasue-zqwpuzwso-wgjshmd D3 500 mg-5 mcg (200 unit) per tablet Take 1 tablet by mouth once daily. omeprazole (PRILOSEC) 40 mg capsule Take 1 capsule by mouth once daily. fluticasone (FLONASE) 50 mcg/actuation nasal spray Use 2 Sprays in each nostril once daily. levothyroxine (LEVOXYL) 25 mcg tablet Take 1 tablet by mouth once daily. Take on empty stomach. ForThyroid escitalopram oxalate (LEXAPRO) 10 mg tablet Take [...] No current facility-administered medications for this visit. PHYSICAL EXAMINATION: VIDEO EXAM: (if completed, performed via video enabled technology) GENERAL: alert and appropriate, in no distress, well-hydrated, well nourished, and happy, smiling, interactive RESPIRATORY: breathing non-labored CHEST: equal chest rise with normal respiratory effort EXTREMITIES: no synovitis Labs/Imaging: Latest Ref Rng & Units 02/11/2023 05/20/2023 07/04/2023 08/19/2023 CBC WBC 3.70 - 11.00 k/uL 7.00 11.17 10.38 8.26 Hemoglobin 11.5 - 15.5 g/dL 12.0 12.5 13.2 11.6 Hematocrit 36.0 - 46.0 % 34.9 37.2 39.4 34.7 Platelet Count 150 - 400 k/uL 104 173 151 169 Abs Neut (ANC) 1.45 - 7.50 k/uL 4.59 9.07 8.02 6.42 Abs Lymph 1.00 - 4.00 k/uL 1.54 0.79 0.84 0.67 Latest Ref Rng & Units 08/12/2021 08/13/2021 03/14/2022 07/04/2023 CMP Sodium 136 - 144 mmol/L 138 142 137 138 Potassium 3.7 - 5.1 mmol/L 3.6 4.0 3.9 4.5 Chloride 97 - 105 mmol/L 106 110 104 105 CO2 22 - 30 mmol/L 24 23 24 24 Glucose 74 - 99 mg/dL 113 126 120 85 BUN 7 - 21 mg/dL 13 11 14 19 Creatinine 0.58 - 0.96 mg/dL 0.78 0.74 0.63 0.73 Calcium 8.5 - 10.2 mg/dL 8.7 8.5 9.4 9.7 AST 13 - 35 U/L 31 28 27 43 ALT 7 - 38 U/L 15 14 14 51 Alkaline Phosphatase 34 - 123 U/L 78 71 100 80 Latest Ref Rng & Units 03/29/2014 Uric Acid Uric Acid 2.0 - 7.0 mg/dL 6.3 Latest Ref Rng & Units 03/27/2021 07/06/2021 07/10/2021 07/04/2023 ESR, WSR WSR 0 - 20 mm/hr 40 101 101 49 Latest Ref Rng & Units 03/27/2021 07/06/2021 07/10/2021 07/04/2023 CRP CRP <0.9 mg/dL <0.3 8.8 4.7 <0.3 Latest Ref Rng & Units 04/29/2013 04/19/2014 04/18/2015 07/08/2021 CK CK 42 - 196 U/L 13 37 47 32 Latest Ref Rng & Units 04/22/2014 07/06/2021 07/09/2021 07/04/2023 RF and CCP Rheumatoid Factor <16 IU/mL 17 62 439 CCP Antibody IgG Qualitative Negative Strong Positive Strong Positive CCP Antibody, IgG <20 Units 44 105 >250 Latest Ref Rng & Units 02/09/2021 03/06/2021 07/05/2021 07/04/2023 Hepatitis Screen Hep A Ab, IgM Negative Negative Hep B Core Ab, IgM Negative Negative Negative Hep B Core Ab, Total Negative Positive Positive Negative Hep B Surf Ab Qual Negative Negative Hep C Antibody IA Negative Negative Negative Hep B Surface Ag Negative Negative Negative Negative 01/02/2021 07/04/2023 TB Screen TB Interpretation No evidence of current or previous infection with Mycobacterium tuberculosis. This result is indeterminate for Mycobacterium tuberculosis complex antigen responsiveness. Specimens from immunocompromised patients, those <5 years of age, and those with a known recent exposure mayfall under this category. Please correlate with clinical picture and other alternative assessments. TB Result Negative Indeterminate Latest Ref Rng & Units 08/13/2021 10/13/2021 10/16/2021 10/16/2021 Antibodies PT Sec 9.7 - 13.0 sec 20.1 19.7 PT INR 0.9 - 1.3 2.0 4.8 2.1 (biotel) 1.9 This result is from an external source. Latest Ref Rng & Units 08/30/2021 09/26/2021 01/02/2022 2022 Urinalysis PROTEIN UA (POCT) Negative mg/dL Negative Negative Negative Negative XR feet 12/29 Bilateral calcaneal spurs and mild hypertrophic changes to LEFT first metatarsal head. XR hands 07/11/14 There are diffuse degenerative changes bilaterally greater in the first carpometacarpal and STT joints with narrowing of the joint space and osteophyte formation. There is no erosion, periosteal reaction or soft tissue swelling. Mineralization is normal. XR left shoulder 08/16/15 FINDINGS: There has been interval increase in the osteophyte of the inferior left glenohumeral joint. Mild to moderate joint space narrowing is unchanged. Moderate AC joint degenerative change, unchanged. The acromiohumeral interval is maintained. Surgical clips in the left axilla, unchanged. XR shoulders reviewed from 06/20/20 Significant glenohumeral joint space narrowing with large inferior humeral head osteophyte, more advanced than previous. Narrowing with mild spurring at the AC joint, also more advanced than previous. Acromiohumeral distance is maintained. No fracture or dislocation. ASSESSMENT: 1. Rheumatoid arthritis involving multiple sites, unspecified whether rheumatoid factor present (HCC) - ICD9: 714.0, ICD10: M06.9 (primary diagnosis) She still has moderate disease activity and remains on prednisone 10 mg/day Plaquenil started 04/2023 - will stop this today due to itching (only new med besides the infliximab) Will hold the 4th dose of infliximab until her arm wound is better healed. Increase prednisone back to 10 mg daily Stop plaquenil. Avoid hepatotoxic meds (methotrexate/Arava) 2. 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 I have recommended we give her a dose of IV Reclast to prevent a fracture Will check labs including vitamin D Discussed ASE's including SUE and flu like reaction 3. Medication monitoring encounter - ICD9: V58.83, ICD10: Z51.81 - drug therapy requiring routine lab work every 3 months to screen for drug toxicity Follow-up 3 months Thalia Monterroso MD I spent 40 minutes in the visit, with more than 50% of the total [id number] time of the visit in counseling / coordination of care. documented in this encounterSt. [facility]07[facility] History of Present illness Narrative* Andria Joyner RN - 10/09/2023 11:11 AM EDT Pt requesting to have the infusion over 2 hours. States the two previous infusions were fine and noside effects during or when she got home. Andria Joyner RN documented in this encounterSt. [facility]06-[facility]24 Telephone encounter Note * Telephone Encounter - Page Robles - 08/20/2023 11:43 AM EDT Scheduled 1st treatment with [facility]. 3 cycles entered. Start email sent [facility] Work Phone: [phone] Miscellaneous Notes* Telephone Encounter - Page Robles - 08/20/2023 11:43 AM EDT Scheduled 1st treatment with [facility]. 3 cycles entered. Start email sent * Telephone Encounter - Page Robles - 08/19/2023 3:16 PM EDT Please call Loli at [facility] when ready to schedule. [phone] * Telephone Encounter - Page Robles - 08/19/2023 2:13 PM EDT DaughterEloisa called stating that [facility] will be calling to schedule Renflexis in [place]. Dr. Loc bass. Please review and advise. documented in this encounterSt. [facility] Hospital06-04-2024 Telephone encounter Note * Telephone Encounter - Page Robles - 08/19/2023 3:16 PM EDT Please call Loli at [facility] when ready to schedule. [phone] [facility] Telephone encounter Note* Telephone Encounter - Page Robles - 08/19/2023 2:13 PM EDT Daughter, Eloisa called stating that [facility] will be calling to schedule Renflexis in [place]. Dr. Monterroso ordering. Please review and advise. [facility] History of Present illness Narrative* Cassidy Arreola APRN.TRAINING PROGRAM DEVELOPER - 08/19/2023 11:29 AM EDT Chief Complaint Patient presents with: Established Patient HPI: Christian Landrum is a 88 year old female who presents here today for follow up breast cancer/LEIA. Per Dr. Bonilla's previous note: H/o underwent a left-sided simple mastectomy for a T2 N0 stage IIA hormone- receptor negative by IHC(positive by RT-PCR testing), HER-2 nonamplified breast cancer. [...] for both; strong for ER, moderate for [place]). HER-2 3+. Had been using Estrace cream [...] negative for malignancy (0/1). SYNOPTIC REPORT OF HEREDIA PATHOLOGIC FINDINGS RIGHT BREAST MASTECTOMY: Part: B Specimen Laterality: Right Procedure: Total mastectomy (including nipple and skin) Wire Localization: Wire absent Lymph Node Sampling: [place] lymph node(s) Tumor size: Size of largest [...] tamoxifen therapy. S/p underwent hysteroscopy D&C at [facility] on 08/23/[address] Hebert. Path. Benign. Pt. resides at [facility]. Pt. here today with her daughter. Last received iron sucrose 2022. No new concerns today. Per daughter-she has had several falls. Appetite:Good with prednisone, not great the past few days. Energy level:Not a lot. Denies fevers or recent illness. Resp:denies cough [...] medications, allergies reviewed. No changes. EXAM: BP 131/66 Pulse 87 Temp 37.1 C (98.7 F) (Temporal) SpO2 97% APPEARANCE Well appearing, alert, in no acute distress, well-hydrated, well nourished. HEART RRR with normal S1 and S2, no murmurs LUNG clear to auscultation BREAST FEMALE b/l mastectomy scars, no nodules LYMPH NODES No cervical lymphadenopathy, No supraclavicular lymphadenopathy, and No axillary lymphadenopathy. ABDOMEN bowel sounds normoactive, soft, non-tender EXTREMITIES No edema NEURO Awake, alert and oriented x 3, using w/c, and No involuntary motions. SKIN Skin color, texture, turgor normal, no suspicious rashes or lesions LABS: Latest Ref Rng 07/04/2023 08/19/2023 WBC 3.70 - 11.00 k/uL 10.38 8.26 RBC 3.90 - 5.20 m/uL 4.00 3.50 (L) Hemoglobin 11.5 - 15.5 g/dL 13.2 11.6 Hematocrit 36.0 - 46.0 % 39.4 34.7 (L) MCV 80.0 - 100.0 fL 98.5 99.1 MCH 26.0 - 34.0 pg 33.0 33.1 MCHC 30.5 - 36.0 g/dL 33.5 33.4 RDW-CV 11.5 - 15.0 % 14.8 14.6 Platelet Count 150 - 400 k/uL 151 169 MPV 9.0 - 12.7 fL 9.4 8.7 (L) Neut% % 77.2 77.8 Abs Neut (ANC) 1.45 - 7.50 k/uL 8.02 (H) 6.42 Lymph% % 8.1 8.1 Abs Lymph 1.00 - 4.00 k/uL 0.84 (L) 0.67 (L) [place]% % 13.6 12.3 Abs [place] <0.87 k/uL 1.41 (H) 1.02 (H) Eosin% % 0.3 0.8 Abs Eosin <0.46 k/uL 0.03 0.07 Baso% % 0.2 0.6 Abs Baso <0.11 k/uL <0.03 0.05 Immature Gran % % 0.6 0.4 IMMATURE GRANS (ABS) <0.10 k/uL 0.06 0.03 NRBC /100 WBC 0.0 0.0 Absolute nRBC <0.01 k/uL <0.01 <0.01 DTYPE Auto Auto Iron studies: Pending ASSESSMENT/PLAN: 1. Malignant neoplasm of lower-inner quadrant of right breast of female, estrogen receptor positive(HCC) - ICD9: 174.3, V86.0, ICD10: C50.311, Z17.0 (primary diagnosis) pT1b pN0(sln) ER/WV positive, HER2 positive invasive ductal carcinoma the [...] up with her specialists. - Needs port flushes. - CBC/iron studies in 3 months. - Follow up in 6 months with CBC/iron studies. - Pt. aware to call office any questions/concerns. The patient indicates understanding of these issues and agrees with the plan. All documentation from previous visit of 02/11/23-Dr. Bonilla/myself was copied and pasted, documentation has been reviewed and edited as necessary for today's visit. Cassidy Arreola APRN.INGE documented in this encounterSt. [facility] Hospital06-04-2024 History of Present illness Narrative* Vania Horan RN - 08/19/2023 7:21 AM EDT Patient is here for IVAD port flush/blood draw per [facility] protocol. IVAD is located in right upper chest. Site cleansed with Chloraprep IVAD accessed with a #20 gauge 3/4 non-coring Gripper needle Flush with 5cc's Normal Saline. Blood Return: Good. 10 cc's blood aspirated and discarded. Blood drawn for CBC and CMP. Flushed with: 20 ml Normal Saline. Non-coring needle removed. Paper tape applied to puncture site. Site negative for redness, edema or tenderness. Patient tolerated procedure well. documented in this encounterSt. Francis Hospital05-10-2024 Telephone encounter Note * Telephone Encounter - Inessa Arnold RN - 07/25/2023 4:30 PM EDT Called Susana Bettencourt and discussed taper schedule from Dr. Monterroso of dropping by 1mg every month. Currently on 10mg Prednisone. Sonia Bettencourt expressed understanding of taper schedule. [facility] Miscellaneous Notes* Telephone Encounter - Inessa Arnold RN - 07/25/2023 4:30 PM EDT Called Susana Bettencourt and discussed taper schedule from Dr. Monterroso of dropping by 1mg every month. Currently on 10mg Prednisone. Sonia Bettencourt expressed understanding of taper schedule. * Telephone Encounter - Mary Beth Trevino - 07/25/2023 12:39 PM EDT Milagros from [facility] calling they need clarification on the taper of Prednisone. Please call [phone] and ask for Susana Bettencourt documented in this encounterSt. [facility] Hospital05-10-2024 Telephone encounter Note * Telephone Encounter - Mary Beth Trevino - 07/25/2023 12:39 PM EDT Milagros from [facility] calling they need clarification on the taper of Prednisone. Please call [phone] and ask for Susana Bettencourt [facility] History of Present illness Narrative* Vikash Sylvester APRN.TRAINING PROGRAM DEVELOPER - 07/15/2023 2:30 PM EDT Female Pelvic Medicine & Reconstructive Surgery Follow-Up Christian Landrum is a 87 year old female, who presents for a follow-up of urinary urgency, urinary frequency. Last visit 07/12/22: Plan: 1. Recurrent UTI - Continue Hiprex BID and vaginal estrogen cream every 3 days. Printed rxs given for daughter to provide to facility pharmacy. - Methenamine Hippurate (HIPREX) 1 gram tablet; Take 1 tablet by mouth twice daily with meals. Dispense: 180 tablet; Refill: 3 - estradiol (ESTRACE) 0.01 % (0.1 mg/gram) vaginal cream; Apply a pea sized amount to the vaginal opening every 3 days Dispense: 42.5 g; Refill: 2 2. Vaginal atrophy - estradiol (ESTRACE) 0.01 % (0.1 mg/gram) vaginal cream; Apply a pea sized amount to the vaginal opening every 3 days Dispense: 42.5 g; Refill: 2 3. Educational circumstance - Reviewed initial exam findings which did not indicate prolapse. Offered an exam today, patient declines. We discussed if she did have prolapse, a pessary would likely be the best option at this time. She does not want a pessary. Daughter agrees. History since last visit: Presents with daughter. Doing well. Using vaginal estrogen cream every 3 days and Hiprex BID. She would like to continue. She resides in [facility] estrogen cream. GFR normal. Urinary Incontinence: no Voiding Dysfunction: no Urinary Frequency: yes, takes lasix Urinary Urgency: yes, sometimes Prolapse Symptoms: no Defecatory Dysfunction: no Fecal Incontinence: no Abnormal Bleeding: no Pain: no Abnormal Vaginal Discharge: no I have confirmed and edited as necessary, the PFSH obtained by others. Vikash Sylvester APRN.TRAINING PROGRAM DEVELOPER [employer] Representative offered: Patient declines. OBJECTIVE: BP 122/84 Ht 5' 5 (1.65m) Wt 179 lb (81.2kg) BMI 29.79 kg/(m^2). General: Well appearing, alert, in no acute distress, well-hydrated, well nourished. and Walker Impression: Christian Landrum is a 87 year old female with Nhi and vaginal estrogen cream. Plan: 1. Recurrent UTI - Continue vaginal estrogen cream twice weekly. - Methenamine Hippurate (HIPREX) 1 gram tablet; Take 1 tablet by mouth two times a day with meals. Dispense: 180 tablet; Refill: 3 2. Vaginal atrophy - Continue vaginal estrogen cream twice weekly. - Plan VV next year since they live in [place]. Medical Decision Making: Problems: Moderate: 2+ stable chronic illnesses Data: Unique test result(s) reviewed: 1 Risk: Moderate: Drug management Medical Decision Making Level: 4 - Moderate Vikash Sylvester APRN.TRAINING PROGRAM DEVELOPER documented in this encounterSt. Francis Hospital04-19-2024 History of Present illness Narrative* Margy Sarabia - 07/04/2023 3:[address] [facility] received prescription(s) for Humira from Dr. Monterroso's office. Benefits investigation was conducted, indicating that a prior authorization is required by patient's insurance plan with [employer] medicare Encounter will be updated once prior authorization has been submitted [facility]. Margy Sarabia CPhT, Inflammatory/Allergy [facility] [phone] * Margy Sarabia - 07/04/2023 3:42 PM EDT Images from the original note were not included. * Maxsulma Margy - 07/04/2023 3:[address] [facility] received prescription(s) for Humira from Loc's office. Benefitsinvestigation was conducted, indicating that a prior authorization is required. PA was approved with details listed below: Plan Name: [employer] medicare PA reference number: - Approval Dates: until 03/16/24 The first copay is high (>$1900) due to the different phases of the patient's traditional Medicare part D plan. It is estimated that the patient's copays will be somewhat similar until (s)he gets through the Medicare coverage gap (average spend estimated in 2023 is ~$3200) after which future fills are expected to be ~$0 monthly thereafter. There is no funding available for patients diagnosis at this time. Patient will be referred to [employer]. Note will be update once pt is contacted. Margy Sarabia CPhT, Inflammatory/Allergy [facility] [phone] documented in this encounterSt. Francis Hospital04-19-2024 History of Present illness Narrative* Thalia Monterroso MD - 07/04/2023 11:18 AM EDT Images from the original note were not included. RHEUMATOLOGY CLINIC FOLLOW-UP NOTE PROVIDER: Thalia Monterroso MD SUBJECTIVE: CC: routine follow up for RA (CCP 44, RF neg, non-erosive) Last seen: 02/24/2023 (with Thalia Monterroso) Current treatment: Prednisone 10 mg/day Plaquenil 200 mg BID - started 04/2023 Prior Medications: MTX 8 tablets weekly and folic acid 1 mg daily; recently dose decreased to 6 tabs/week in 02/2020 -stopped due to cirrhosis Brief History of Present Illness: 80 WF with PMHx significant for h/o L BrCa (Dx 2007) s/p mastectomy & Chemo-Rx with recurrence in 2016 s/p surgical excision, OA (hands & knees), chronic AF on A/C & beta-nahun, and OSAon CPAP, recurrent diverticulitis and bowel resection who is seen in the Rheumatology Clinic for follow up of PMR and RA. She has been on steroids for PMR since Dec 2012 (elevated ESR and CRP at the [facility]). She started to develop symptoms of inflammatory arthritis in Apr 2014 and was started on methotrexate then. She has borderline CCP positivity and negative radiographs. She has a history or RA that was diagnosed over 20 years ago and only treated with anti-inflammatories historically. She saysit was largely in remission until early 2014. Plaquenil was added in October 2014. At her last visit we increased MTX from 6 to 8 tablets weekly. Joint pain is better. She doesn't notice swollen joints. Has a little bit of AM stiffness. Primarily the left shoulder bothers her. She has already done physical therapy and is considering getting a steroid injection locally Has right flank pain of the right rib over the last 2 months which has worsened She took mesalamine for 1 month for diverticulitis which did help her abdominal pain October 18, 2016: since her last visit she decided to stop hydroxychloroquine bc she thought it may be causing side effects. Complains of hair loss. She has also had some recent bouts of weakness and dizziness. She hsa seen cardiology and ENT and he is suspicions of her BP being too low. Metop dose was cut back. She isn't taking tramadol and she rarely takes tylenol. Her joint pain comes and goes. She does occasionally have knee or shoulder pain. She doesn't have significant AM stiffness. She doesn't have swollen joints. May 09, 2017: she has not noticed any change in her joint pain since stopping hydroxychloroquine in September 2016. She complains of intermittently arthralgias with stinging sharp intermittent pain of the left wrist (wihtout swelling), tenderness of CMC's, occasional shoulder pain, knee pain, and neck stiffness. She denies having swollen joints. She is tolerating the methotrexate well. 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 She takes tylenol only on occasion (not regularly). October 10, 2017 she feels like in general her pain is well controlled. A few months ago she developedsevere neck pain. Eventually it calmed down, she started physical therapy this week No joint swelling, no morning stiffness. rheumatoid arthritis has been well controlled. Tolerating methotrexate well. March 13, 2018 rheumatoid arthritis is well controlled. She is occasional joint and muscle pain in various places that come and go. She takes tylenol as needed but admits to rarely using this. [place] on methotrexate and is tolerating it well. September 30, 2018: she complains of more hand pain and stiffness overall. Describes pain in hands, CMC joints, shoulders, and knees. Still taking methotrexate 8 tabs weekly. She hasn't hd any flares. Sheis tolerating meds well. She complains of increased hair loss. March 26, 2019 complains of more pain in her hands and fingers. +morning stiffness, has trouble making a fist in the AM. Also complains of more shoulder pain. Is having trouble doing shoulder exercises in the water due to pain. Several finger joints swell. She applies voltaren to the fingers whenthey swell. September 24, 2019 she admits she has had a lot of problems with her hands lately. Comes and goes. She has been getting trigger fingers, sees a hand specialist. She has a lot of pain in her left shoulder,sometimes can't sleep on the left side at night. She complains of chronic low back pain. Denies having any flares. Prolonged AM stiffness takes about an hour to loosen up. March 24, 2020 since last visit she has had 5 flares which lasted about 2 days each. She would have fevers as high as 101, normally around 100. Last one was 03/04/20. The flares were associated with low grade fevers and widespread myalgias. She denies overt joint swelling. She has been on methotrexate 6 tabs for 3 weeks at a lower dose due to elevated liver tests. She says she has 3 fingers that need surgery due to triggering. She doesn't appreciate swelling in her hands. She was having night sweats during her flares. No weight loss. She takes tylenol as needed not on a daily basis. July 21, 2020 she has been having more activity from rheumatoid arthritis. Ankles swollen, multiple joint pain all over. She recently took a medrol dose pack which significantly helped. April 13, 2021 methotrexate was stopped due to having developed cirrhosis of the liver. She has been off methotrexate for about 3 months. Overall she admits she is doing ok. She doesn't notice an increase in joint pain. She does get occasional flare ups that may last a couple of days. February 24, 2023 last visit with her was nearly 2 years ago. She stopped methotrexate due to a diagnosis of cirrhosis. She has been staying in an assisted living. Overall she was doing ok until a few weeks ago. She developed acute onset of widespread pain (difficult for her to localize). She was given a course of prednisone which she recalls immediately relieved the pain. As soon as she stops the prednisone the pain returns. She has now had 3 courses of prednisone like this. Admits she has pain in shoulders and hips. She denies headaches, vision changes or jaw pain. She is currently on a prednisone taper and is on 20 mg/day, says right now she feels well. July 04, 2023 SHe has been on a prednisone taper since February. She had trouble tapering down andin April we restarted a slower taper starting back at 15 mg. She admits she has been having a great deal of pain in shoulders, knees, wrists, hands. She is having swelling of the knees and of the right wrist. Assoc with morning stiffness. Plaquenil started in 04/2023, she is now down to 10 mg of prednisone. She had bilateral knee injections last week REVIEW OF SYSTEMS: Fever : Yes Recent unintentional weight change: No Eye pain: No Eye redness: No Vision Disturbance: No Eye Dryness: Yes Nosebleeds: No Sores in your mouth: No Trouble Swallowing: No Dry Mouth: Yes Chest pain: No Leg Swelling: Yes A cough: No Shortness of breath: No Pain with breathing: No Heartburn: No Abdominal pain: No Diarrhea: No Black tarry stools: No Blood in urine: No Joint pain or stiffness: Yes Muscle weakness: Yes Muscle aches: Yes Joint swelling: Yes Morning Stiffness in Joints: Yes A rash: No Skin Color Changes: No Hair Loss: No Nail Changes: No Headaches: No Numbness: Yes Memory Loss: Yes Swollen Glands: No Reviewed 07/04/2023 and above documentation is unchanged from previous visit RAPID 3: DISEASE ACTIVITY: Weighed Score Levels: 0 - 1: Near Remission 1.3 - 2.0: Low Severity 2.3 - 4.0: Moderate Severity 4.3 - 10.0: High Severity 12/19/2020 04/09/2021 02/21/2023 RAPID-3 Weighed Score RAPID 3 Weighed Score 4.11 4.44 (High Severity (HS)) 7.89 (High Severity (HS)) PAST MEDICAL HISTORY: PAST MEDICAL HISTORY Diagnosis [...] 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 fbkgjyp-bnosoatix-sjpjutz D3 500 mg-5 mcg (200 unit) per tablet Take 1 tablet by mouth once daily. omeprazole (PRILOSEC) 40 mg capsule Take 1 capsule by mouth once daily. fluticasone (FLONASE) 50 mcg/actuation nasal spray Use 2 Sprays in each nostril once daily. levothyroxine (LEVOXYL) 25 mcg tablet Take 1 tablet by mouth once daily. Take on empty stomach. ForThyroid escitalopram oxalate (LEXAPRO) 10 mg tablet Take [...] No current facility-administered medications for this visit. PHYSICAL EXAMINATION: BP 141/65 (BP Site: Left Arm, BP Position: Sitting, BP Cuff Size: Large Adult) Pulse 80 Wt 80.9kg (178 lb 6.4 oz) BMI 28.79 kg/m General: No apparent distress, A&Ox3 Skin: No rashes CV: RRR, no murmurs Resp: lungs clear Abdo:soft, nondistended Ext: No edema. MSK: Neck: Good flexion/extension/lateral rotation Shoulders: Has full ROM, +tenderness with abduction and external rotation Elbows: No swelling, no tenderness, no flexion contractures, no nodules, good ROM Wrists: No swelling, good ROM, no TTP Hands: Heberden's and henna's nodes, b/l CMC squaring and TTP, R>L. Several of her PIP's and MCP's are boggy and tender Able to make full fist bilaterally Knees: No effusions, tenderness along lateral joint margin of right knee, full extension and good ROM Reviewed 07/04/2023 and above documentation is unchanged from previous visit Labs/Imaging: Latest Ref Rng & Units 08/09/2022 11/19/2022 02/11/2023 05/20/2023 CBC WBC 3.70 - 11.00 k/uL 6.06 5.25 7.00 11.17 Hemoglobin 11.5 - 15.5 g/dL 11.9 11.5 12.0 12.5 Hematocrit 36.0 - 46.0 % 34.7 34.1 34.9 37.2 Platelet Count 150 - 400 k/uL 113 104 104 173 Abs Neut (ANC) 1.45 - 7.50 k/uL 3.64 3.43 4.59 9.07 Abs Lymph 1.00 - 4.00 k/uL 1.57 1.06 1.54 0.79 Latest Ref Rng & Units 2021 08/12/2021 08/13/2021 03/14/2022 CMP Sodium 136 - 144 mmol/L 137 138 142 137 Potassium 3.7 - 5.1 mmol/L 4.2 3.6 4.0 3.9 Chloride 97 - 105 mmol/L 104 106 110 104 CO2 22 - 30 mmol/L 24 24 23 24 Glucose 74 - 99 mg/dL 114 113 126 120 BUN 7 - 21 mg/dL 19 13 11 14 Creatinine 0.58 - 0.96 mg/dL 0.71 0.78 0.74 0.63 Calcium 8.5 - 10.2 mg/dL 9.6 8.7 8.5 9.4 AST 13 - 35 U/L 39 31 28 27 ALT 7 - 38 U/L 21 15 14 14 Alkaline Phosphatase 34 - 123 U/L 88 78 71 100 Latest Ref Rng & Units 03/29/2014 Uric Acid Uric Acid 2.0 - 7.0 mg/dL 6.3 Latest Ref Rng & Units 03/06/2021 03/27/2021 07/06/2021 07/10/2021 ESR, WSR WSR 0 - 20 mm/hr 30 40 101 101 Latest Ref Rng & Units 03/06/2021 03/27/2021 07/06/2021 07/10/2021 CRP CRP <0.9 mg/dL <0.3 <0.3 8.8 4.7 Latest Ref Rng & Units 04/29/2013 04/19/2014 04/18/2015 07/08/2021 CK CK 42 - 196 U/L 13 37 47 32 Latest Ref Rng & Units 12/18/2012 04/22/2014 07/06/2021 07/09/2021 RF and CCP Rheumatoid Factor <16 IU/mL 17 62 CCP Antibody IgG Qualitative Negative Strong Positive CCP Antibody, IgG <20 Units 21 44 105 Latest Ref Rng & Units 01/13/2021 02/09/2021 03/06/2021 07/05/2021 Hepatitis Screen Hep A Ab, IgM Negative Negative Hep B Core Ab, IgM Negative Negative Negative Negative Hep B Core Ab, Total Negative Positive Positive Positive Hep B Surf Ab Qual Negative Negative Hep C Antibody IA Negative Negative Hep B Surface Ag Negative Negative Negative Latest Ref Rng & Units 01/02/2021 TB Screen TB Interpretation No evidence of current or previous infection with Mycobacterium tuberculosis. TB Result Negative Negative Latest Ref Rng & Units 08/13/2021 10/13/2021 10/16/2021 10/16/2021 Antibodies PT Sec 9.7 - 13.0 sec 20.1 19.7 PT INR 0.9 - 1.3 2.0 4.8 2.1 (biotel) 1.9 This result is from an external source. Latest Ref Rng & Units 08/30/2021 09/26/2021 01/02/2022 2022 Urinalysis PROTEIN UA (POCT) Negative mg/dL Negative Negative Negative Negative XR feet 12/29 Bilateral calcaneal spurs and mild hypertrophic changes to LEFT first metatarsal head. XR hands 07/11/14 There are diffuse degenerative changes bilaterally greater in the first carpometacarpal and STT joints with narrowing of the joint space and osteophyte formation. There is no erosion, periosteal reaction or soft tissue swelling. Mineralization is normal. XR left shoulder 08/16/15 FINDINGS: There has been interval increase in the osteophyte of the inferior left glenohumeral joint. Mild to moderate joint space narrowing is unchanged. Moderate AC joint degenerative change, unchanged. The acromiohumeral interval is maintained. Surgical clips in the left axilla, unchanged. XR shoulders reviewed from 06/20/20 Significant glenohumeral joint space narrowing with large inferior humeral head osteophyte, more advanced than previous. Narrowing with mild spurring at the AC joint, also more advanced than previous. Acromiohumeral distance is maintained. No fracture or dislocation. ASSESSMENT: 1. Rheumatoid arthritis involving multiple sites, unspecified whether rheumatoid factor present (HCC) - ICD9: 714.0, ICD10: M06.9 (primary diagnosis) She still has moderate disease activity and remains on prednisone 10 mg/day Plaquenil started 04/2023 Avoid hepatotoxic meds (methotrexate/Arava) We discussed starting a biologic. Will start humira. Continue slow prednisone taper down by 1 mg every month (currently on 10 mg) Check labs Potential adverse effects of anti-TNF agents were discussed including injection site reactions, infections, reactivation of latent tuberculosis and malignancy. - BLOOD TB SCREEN - HEP REMOTE PANEL BL - C-REACTIVE PROTEIN - SEDIMENTATION RATE, WESTERGREN - COMPLETE BLOOD COUNT AND DIFFERENTIAL - COMPREHENSIVE METABOLIC PANEL - RHEUMATOID FACTOR - CCP ANTIBODY IGG 2. Osteopenia of multiple sites - ICD9: 733.90, ICD10: M85.89 Reviewed recent BMD. T-score is -1.2 FRAX is slightly high Will discuss treatment options next visit 3. Medication monitoring encounter - ICD9: V58.83, ICD10: Z51.81 - drug therapy requiring routine lab work every 3 months to screen for drug toxicity 4. Long-term use of Plaquenil - ICD9: V58.69, ICD10: Z79.899 Started 04/2023 She has had a baseline eye exam (Some elements copied from my prior note, which have been updated where appropriate, and all reflect current medical decision making from today, 07/04/2023) Follow-up 3 months Thalia Monterroso MD documented in this encounterSt. [facility]04-[facility]24 Miscellaneous Notes* Telephone Encounter - Bayron Spears RN - 07/01/2023 4:00 PM EDT Singed order for compression stockings place in us postal mail addressed to: [facility] medical records [address] [place] [address] documented in this encounterSt. Francis Hospital04-15-2024 History of Present illness Narrative* Stella Preciado PA-C - 06/30/2023 4:00 PM EDTAssociated Order(s): Large Joint Arthro/Inj: R knee joint Post-Procedure Diagnose(s): Primary osteoarthritis of both knees Large Joint Arthro/Inj: R knee joint Informed Consent Consent Obtained: Verbal Alpha Protocol A moment to CARE was completed. [...] assessment and interventions applicable. No implant(s) inserted. 06/30/2023 4:00 PM The procedure site was prepped in the usual sterile fashion. Site: R knee joint Medications: 6 mg betamethasone acetate-betamethasone sodium phosphate 6 mg/mL Anesthetics: 5 mL lidocaine (PF) 10 mg/mL (1 %) Outcome: Tolerated well, no immediate complications Post-injection instructions were reviewed with the patient and the patient voiced understanding of these instructions. SIGN OUT All instruments, equipment, possible retained foreign bodies accounted for. * Maria A Hooks RN - 06/30/2023 3:25 PM EDT AMB ROOMING INTAKE FLOWSHEET DATA Pain Pain Level: 6 Description: Aching, Sharp, Stabbing Duration Units: Months Frequency: Continuous Intervention/Comfort measure: Medication, Cold, Exercise Comments: Currently in PT for knees Patient presents with: Right Knee - Established Patient, Follow Up, Injections Patient presents for follow up from 06/18/23 where she had cortisone injection to left knee. Would like right knee cortisone injection. documented in this encounterSt. [facility] Hospital04-15-2024 Instructions* Patient Instructions* Stella Preciado PA-C - 06/30/2023 3:42 PM EDT Right knee injection today. No restrictions, follow up in 91 days if needed. documented in this encounterSt. [facility] Hospital04-03-2024 History of Present illness Narrative* Stella Preciado PA-C - 06/18/2023 9:16 AM EDTAssociated Order(s): Large Joint Arthro/Inj: L knee joint Post-Procedure Diagnose(s): Primary osteoarthritis of both knees; Chronic pain of left knee Stella Preciado PA-C Department of Orthopaedics Orthopaedics [address] [place] [id number] Dept: [phone] Dept June 18, 2023 CHIEF COMPLAINT: Established Patient and Pain of the Left Knee and Established Patient and Pain of the Right Knee. ASSESSMENT: M25.562, G89.29 Chronic pain of left knee (primary encounter diagnosis) M17.0 Primary osteoarthritis of both knees SUMMARY/PLAN: Patient presents for a left knee corticosteroid injections, both knees are painful. Pain today is a9 out of 10 deep aching. The patient is coming down off a steroid taper and is on 12 mg of prednisone daily. We discussed injecting the left knee this week and having her return the following week sothat we can inject the right knee. Large Joint Arthro/Inj: L knee joint Informed Consent Consent Obtained: Verbal Alpha Protocol A moment to CARE was completed. SIGN IN Sign in communication not applicable due to emergent procedure. Personnel directly involved with the procedure wore the appropriate PPE. Special Equipment: N/A Patient/Surrogate Stated/Verified: Patient name, Date of , Relevant allergies and Intended procedure TIME OUT Intended patient and procedure match the source document(s). Relevant labs, photos, and/or imaging studies have been reviewed. Correct side/site marked and visible. Medications required for procedure verified. No fire risk assessment and interventions applicable. No implant(s) inserted. 06/18/2023 9:16 AM The procedure site was prepped in the usual sterile fashion. Site: L knee joint Medications: 6 mg betamethasone acetate-betamethasone sodium phosphate 6 mg/mL Anesthetics: 4 mL lidocaine (PF) 10 mg/mL (1 %) Outcome: Tolerated well, no immediate complications Post-injection instructions were reviewed with the patient and the patient voiced understanding of these instructions. SIGN OUT All instruments, equipment, possible retained foreign bodies accounted for. Ms. Christian Landrum was advised as to contrast therapies and/or to take analgesics/anti-inflammatories as needed and all contraindications were reviewed. Supporting Information Below: Medications: Current Outpatient Medications Medication Sig predniSONE (DELTASONE) 20 mg tablet 40 mg x 3 days, 20 mg x 3 days, 10mg x 3 days, 5 mg x 3 days modafinil (PROVIGIL) 100 mg tablet TAKE 1/2 to 1 TABLET BY MOUTH EVERY DAY as needed for hypersomnia Methenamine Hippurate (HIPREX) 1 gram tablet Take 1 tablet by mouth twice daily with meals. traMADol (ULTRAM) 50 mg tablet Take 50 mg by mouth every 6 hours as needed for pain. furosemide (LASIX) 20 mg tablet Take 1 tablet by mouth every other day. senna/docusate sodium (SENNA-C PLUS ORAL) Take 8.6 mg by mouth once daily. FERROUS GLUCONATE ORAL Take 324 mg by mouth once daily. metoprolol succinate ER (TOPROL XL) 25 mg 24 hr tablet Take 1 tablet by mouth once daily. jhsvvae-ykgvcxnec-jffspbf D3 500 mg-5 mcg (200 unit) per tablet Take 1 tablet by mouth once daily. omeprazole (PRILOSEC) 40 mg capsule Take 1 capsule by mouth once daily. fluticasone (FLONASE) 50 mcg/actuation nasal spray Use 2 Sprays in each nostril once daily. levothyroxine (LEVOXYL) 25 mcg tablet Take 1 tablet by mouth once daily. Take on empty stomach. ForThyroid escitalopram oxalate (LEXAPRO) 10 mg tablet Take 1 tablet by mouth once daily. gabapentin (NEURONTIN) 600 mg tablet Take 0.5 tablets by mouth once daily. (Patient taking differently: Take 300 mg by mouth daily at bedtime.) cetirizine (ZYRTEC) 10 mg tablet Take 1 tablet by mouth once daily. MULTIVITAMIN TAB Take 1 tablet by mouth once daily. Acetaminophen 500 mg cap Take 1,000 mg by mouth as needed. guaiFENesin (ROBITUSSIN) 100 mg/5 mL syrup Take 200 mg by mouth every 4 hours as needed. No current facility-administered medications for this visit. Allergies: Clindamycin, Keflex [Cephalexin], Naprosyn [Naproxen], Desmond Inhibitors, Adhesives [Other], Arthrotec 50 [Diclofenac-Misoprostol], Blephamide [Sulfacetamide-Prednisolone], Ditropan [Oxybutynin], Flagyl [Metronidazole Hcl], Flexeril [Cyclobenzaprine], Hctz [Hydrochlorothiazide], Naproxen Sodium, Paxil [Paroxetine], Sulfa (Sulfonamide Antibiotics), and Zestril [Lisinopril] This note was partially generated using Vastrm voice recognition system, and there may be some incorrect words, spellings, and punctuation that were not noted in checking the note before saving. Stella Preciado PA-C * Angelica Medley MA - 06/18/2023 8:29 AM EDT AMB ROOMING INTAKE FLOWSHEET DATA Risk Screening Do you have concerns about personal safety or safety in the home?: No Pain Pain Level: 9 Pain Location: Knee-Left Description: Aching, Throbbing Duration Units: Weeks Frequency: Continuous Intervention/Comfort measure: Medication, Reposition, Exercise Comments: Bilateral knees Patient would like injection into the left knee. documented in this encounterSt. [facility]04-03-2024 Instructions* Patient Instructions* Stella Preciado PA-C - 06/18/2023 8:54 AM EDT Left knee injection today, follow up in 1-2 weeks for right knee injection. documented in this encounterSt. [facility]04-03-2024 History of Present illness Narrative* Page Ruiz RT(R) - 06/18/2023 8:00 AM EDT Radiology Service Progress Note PATIENT NAME: Christian Landrum DATE OF SERVICE: June 18, 2023 TIME: 11:10 AM PATIENT IDENTITY VERIFICATION COMPLETED USING TWO [...] PATIENT RELEVANT IMPLANT DATA REVIEWED: Not Applicable PATIENT PRESENTS WITH AN IMPLANTABLE OR ATTACHED RESEARCH CONSULTANT: No RADIOLOGY DEPARTMENT: General X-ray: Exam(s) Completed: Lower Extremity X- Ray(s): Knee, AP / Lat / Tunne / Merchant Bilateral and Wt. Bearing PERIPHERAL IV DATA: Not applicable SIGNED BY: RT Nithin(R) June 18, 2023 11:10 AM documented in this encounterSt. [facility]04-01-2024 History of Present illness Narrative* Cecilio Ibarra DO - 06/16/2023 1:57 PM EDT Images from the original note were not included. [facility] [place] Luis Miguel oKlb Department of Cardiovascular Medicine SECTION OF CLINICAL CARDIOLOGY OUTPATIENT VISIT DATE June 16, 2023 OUTPATIENT VISIT TYPE ESTABLISHED Patient Name: Christian Landrum : 1935 PRIMARY CARE PHYSICIAN: Galina Iraheta MD [facility] 09/05/22 CHIEF COMPLAINT: Patient presents with: Follow Up: TASHIA 12/13/22 CATHY HTN , PAF EKG 09/05/22 ECHO 02/04/23 Fall about 3 weeks ago Ms. Landrum is an 87 y/o female who comes for a follow up visit. She has a h/o of PAF on Warfarin, rheumatic MV regurgitation, HTN, HLD, STUART, breast Ca, PMR and OA. Patient came to the OV with her daughter. She has been doing well since last visit denies any chestdiscomfort. She has been having challenges with RA and has been on prednisone and Plaquenil. She had cataract surgery recently that she did Ok with. She has not had any recent falls or evidence of bleeding. She has received iron infusions in the past and now on oral iron and her hemoglobin is stable. She gets some JENNINGS with more extreme exertion mostly limited by orthopedic or arthritis pain. She denied any dizziness, lightheadedness, nausea or diaphoresis. She reports good fluid intake as well as adequate nutrition at home. She has not been taking her warfarin and is aware of the risk of potential stroke. She has been offwarfarin for about 2 months due to issues with bleeding and positive occult stools. She does not take a diuretic at home. She reports compliance with all of her other medications. She is in physical therapy and daughter continues her to be active. Prior history 09/05/2022 She did have COVID 1-1/2 months ago and was a little bit off balance with that however has been doing better. She has not had any recent falls or evidence of bleeding. She has received iron infusions and her hemoglobin is stable. IMPRESSION/PLAN: Paroxysmal atrial fibrillation - Stable and remains in sinus rhythm today - No atrial fibrillation noted despite multiple hospital admissions with fever - Historically was on Warfarin but this was stopped in February 2022 for GI bleed. Patient is high thromboembolic risk and aware of this off anticoagulation. [id number] score 4 or approximately 7% annual stroke risk and has-bled score is 2 or 4% bleeding risk - Currently on metoprolol - patient and daughter wish to stay off anticoagulation due to recurrent GI bleed and do not wish to pursue a Watchman evaluation Rheumatic mitral regurgitation - Echo 08/2020: trace-1+ MR - Stable, continue to monitor clinically and with periodic echocardiogram Essential hypertension - Good control on metoprolol [...] AF vs risk of bleeding with anticoagulation. We did trial DOAC again and she had some melanotic stool so this was stoppedagain. They do not want to work up the GI issues either. We discussed the use of Watchman and they declined. Her anemia appears to be stable with iron and she has had not evidence of bleeding. Thank you for allowing me the privilege of participating in the care of your patient. Please do nothesitate to contact me if there are any questions. Cecilio Ibarra DO, FACC, FCCP, FACOI CARDIAC STUDIES: LV Ejection Fraction (%) Date Value 02/04/2023 61 09/07/2020 65 08/03/2019 62 02/22/2014 63 Last ECHO Result Conclusion ECHO Collected: 02/04/2023 10:30 AM (Final result) Impression: CONCLUSIONS: - Exam indication: Atrial fibrillation - The left ventricle is normal in size. There is mild concentric left ventricular hypertrophy. Left ventricular systolic function is normal. EF = 61 5% (2D biplane) Grade I left ventricular diastolic dysfunction. - The right ventricle is normal in size. Right ventricular systolic function is normal. - There are no significant valvular abnormalities. - Exam was compared with the prior echocardiographic exam performed on 09/07/2020, no significant change. * * * Final * * * Last EKG Result Conclusion ECG COMPLETE Collected: 09/05/2022 9:16 AM (Final result) Impression: NORMAL SINUS RHYTHM Confirmed by OBDULIA BERMEO DO ([id number]) on 10/08/2022 3:19:16 PM LABS: Sodium (mmol/L) Date Value 03/14/2022 137 [...] 2.0 01/12/2021 2.0 Hemoglobin (g/dL) Date Value 05/20/2023 12.5 02/11/2023 12.0 04/11/2021 11.8 03/27/2021 11.1 No results found [...] (no units) Date Value 10/16/2021 1.9 BP 126/68 Pulse 79 Wt 82.1 kg (181 lb) SpO2 96% BMI 29.21 kg/m PHYSICAL EXAMINATION: Vitals: BP 126/68 Pulse 79 Wt 82.1 kg (181 lb) SpO2 96% BMI 29.21 kg/m Neck: No jugular venous distention, no carotid bruits, carotids have a normal upstroke, no palpablethyromegaly. Lungs: Clear to auscultation bilaterally, no wheezing [...] Negative for: Weakness, Paralysis, Numbness, Tingling, Tremor, Nervousness,Depressed mood, Memory loss SKIN: Negative for: Rashes, Itching HEMATOLOGICAL/LYMPHATIC: Negative for: Easy bruising , Easy bleeding ENDOCRINE: Negative for: Heat or cold intolerance, Excessive sweating, Frequent urination, Frequentthirst ALLERGIES: Clindamycin, Keflex [Cephalexin], Naprosyn [Naproxen], Desmond Inhibitors, Adhesives [Other], [id number] [Diclofenac-Misoprostol], Blephamide [Sulfacetamide- Prednisolone], Ditropan [Oxybutynin], Flagyl[Metronidazole Hcl], Flexeril [Cyclobenzaprine], Hctz [Hydrochlorothiazide], Naproxen Sodium, [...] Age of Onset other ( age 59 [place]) Mother hypertension and TB other (pancreatic cancer) Father Breast Cancer Sister diagnosed at age 53 Breast Cancer Maternal Aunt diagnosed postmenopausal Breast Cancer Other 2 maternal first cousins Breast Cancer Other maternal cousins Breast Cancer Other maternal great grandmother other (sinus cavity CA) Son other (myeloma) Brother other (healthy) Sister other (ovarian cancer) Sister paternal grandmother CURRENT MEDICATIONS: Current Outpatient Medications Medication Sig predniSONE (DELTASONE) 20 mg tablet 40 mg x 3 days, 20 mg x 3 days, 10mg x 3 days, 5 mg x 3 days modafinil (PROVIGIL) 100 mg tablet TAKE 1/2 to 1 TABLET BY MOUTH EVERY DAY as needed for hypersomnia Methenamine Hippurate (HIPREX) 1 gram tablet Take [...] Take 1 tablet by mouth once daily. wbyxjaz-bqudodbge-pvxmvtm D3 500 mg-5 mcg (200 unit) per tablet Take 1 tablet by mouth once daily. omeprazole (PRILOSEC) 40 mg capsule Take 1 capsule by mouth once daily. fluticasone (FLONASE) 50 mcg/actuation nasal spray Use 2 Sprays in each nostril once daily. levothyroxine (LEVOXYL) 25 mcg tablet Take 1 tablet by mouth once daily. Take on empty stomach. ForThyroid escitalopram oxalate (LEXAPRO) 10 mg tablet Take [...] medications for this visit. documented in this encounterSt. [facility]03-[facility]-2024 History of Present illness Narrative* Hu Moreland RT(R) - 06/06/2023 2:15 PM EDT Radiology Service Progress Note PATIENT NAME: Christian Landrum DATE OF SERVICE: June 06, 2023 TIME: 2:13 PM PATIENT IDENTITY VERIFICATION COMPLETED USING TWO (2) IDENTIFIERS: Name and Date of confirmedby patient verbally. FALL SCREENING: Has the patient had 2 falls in the last year or 1 fall with injury or currently using an Ambulatory Assistive Device (Walker, Cane, Wheelchair, Crutches, etc.)? No PATIENT GENDER DATA: Female. status: : No status: NO. PATIENT RELEVANT IMPLANT DATA REVIEWED: Not Applicable PATIENT PRESENTS WITH AN IMPLANTABLE OR ATTACHED RESEARCH CONSULTANT: No RADIOLOGY DEPARTMENT: Bone Density PERIPHERAL IV DATA: Not applicable SIGNED BY: RT Dwayne(R) June 06, 2023 2:13 PM documented in this encounterSt. [facility] Hospital02-14-2024 Miscellaneous Notes* Telephone Encounter - Nicole Childs Ma - 04/30/2023 7:32 AM EST Faxed to [facility] * Telephone Encounter - Thalia Monterroso MD - 04/29/2023 4:07 PM EST Additionally, I would like her to please start hydroxychloroquine 200 mg BID. Thalia Monterroso MD * Telephone Encounter - Thalia Monterroso MD - 04/29/2023 4:05 PM EST Please have her do the following taper: 15 mg daily x 1 month 12.5 mg daily x 1 month 10 mg daily x 1 month. Then plan to lower dose down by 1 mg every month. If she has difficulty with this taper then we have to consider another diagnosis. Thalia Monterroso MD * Telephone Encounter - Nicole Childs Ma - 04/29/2023 10:57 AM EST Spoke with [facility] RN She is still having all over generalized [...] [facility] said we can fax response to [phone] * Telephone Encounter - Nery Olsen - 04/28/2023 1:04 PM EST [facility] from [facility] called to advise that pt's pain has gotten worse while on the prednisone taper. Advised that dosage is now at 12.5 and pt is in a lot of pain. Callback: [phone] DHEERAJ Ponce documented in this encounterSt. [facility] Hospital02-09-2024 Miscellaneous Notes* Telephone Encounter - Nicole Childs Ma - 04/25/2023 2:05 PM EST Faxed response to [facility] * Telephone Encounter - Thalia Monterroso MD - 04/25/2023 1:30 PM EST Continue prednisone 12.5 mg daily. Sometimes pain can increase for 1-2 days following a dose decrease. If pain persists for 5 days let me know. Thalia Monterroso MD * Telephone Encounter - Nicole Childs Ma - 04/24/2023 12:39 PM EST [facility] from [facility] called. Patient was complaining of all over [...] response and or call documented in this encounterSt. [facility] Hospital11-28-2023 History of Present illness Narrative* Cassidy Arreola APRN.TRAINING PROGRAM DEVELOPER - 02/11/2023 10:05 AM EST Chief Complaint Patient presents with: Established Patient HPI: Christian Landrum is a 87 year old female who presents here today for follow up breast cancer/LEIA. Per Dr. Bonilla's previous note: H/o underwent a left-sided simple mastectomy for a T2 N0 stage IIA hormone- receptor negative by IHC(positive by RT-PCR testing), HER-2 nonamplified breast cancer. [...] for both; strong for ER, moderate for [place]). HER-2 3+. Had been using Estrace cream [...] negative for malignancy (0/1). SYNOPTIC REPORT OF HEREDIA PATHOLOGIC FINDINGS RIGHT BREAST MASTECTOMY: Part: B Specimen Laterality: Right Procedure: Total mastectomy (including nipple and skin) Wire Localization: Wire absent Lymph Node Sampling: [place] lymph node(s) Tumor size: Size of largest [...] tamoxifen therapy. S/p underwent hysteroscopy D&C at [facility] on 08/23/[address] Hebert. Path. Benign. Pt. resides at [facility]. Pt. here today with her daughter. Last received iron sucrose 2022. No new concerns today. Appetite:Good. Wt. up. Energy level:It's been better. Denies fevers or recent illness. [...] 1.00 - 4.00 k/uL 1.57 1.06 1.54 [place]% % 11.2 11.2 9.7 Abs [place] <0.87 k/uL 0.68 0.59 0.68 E[place]% % [...] V10.3, ICD10: Z85.3 (primary diagnosis) pT1b pN0(sln) ER/WV positive, HER2 positive invasive ductal carcinoma the [...] and edited as necessary for today's visit. Cassidy Arreola APRN.CNP documented in this encounterSt. Francis Hospital10-05-2023 Miscellaneous Notes* Telephone Encounter - Sheryl Mercado RN - 12/19/2022 2:42 PM EDT Faxed patient's last office visit note to facility, [facility], per . documented in this encounterSt. Francis Hospital10-03-2023 History of Present illness Narrative* Vania Horan RN - 12/17/2022 7:27 AM EDT Patient is here for IVAD port flush per [facility] [place] protocol. IVAD is located in right upper chest. Site cleansed with Chloraprep IVAD accessed with a #20 gauge 3/4 non-coring Gripper needle Blood Return: Good Flushed with: 20 ml Normal Saline and 5 ml Heparin Lock Flush Non-coring needle removed. Paper tape applied to puncture site. Port site negative for redness, edema or tenderness. Patient tolerated procedure well. documented in this encounterSt. Francis Hospital09-29-2023 Instructions* Patient Instructions* Juliet Gaffney APRN.CNP - 12/13/2022 2:50 PM EDT PLAN AND RECOMMENDATIONS: No change in medications Follow up Dr Ibarra in 6 months. CONTACT INFORMATION: Juliet Gaffney APRN.CNP Cardiology Nurse Practitioner Section of Regional Cardiology [place] Dept of Cardiovascular Medicine [facility] [place] [address] [place] [address] Office Office documented in this encounterSt. Francis Hospital09-29-2023 History of Present illness Narrative* Juliet GaffneySILVIO.TRAINING PROGRAM DEVELOPER - 12/13/2022 2:45 PM EDT Images from the original note were not included. [facility] [place] Luis Miguel Kolb Department of Cardiovascular Medicine SECTION OF CLINICAL CARDIOLOGY OUTPATIENT VISIT DATE December 13, 2022 OUTPATIENT VISIT TYPE ESTABLISHED PRIMARY CARE PHYSICIAN: Galina Iraheta [address] [place] [address] REFERRING PHYSICIAN: Jerrica Beltran [address] [facility] [address] CHIEF COMPLAINT: Follow Up ([place] denies cardiac concerns/Daughter, Eloisa, concerned about Lasix management/Requires written prescriptions) HISTORY OF PRESENT ILLNESS: Ms. Landrum is a 87 year old female with pmh of HTN, HLD, central sleep apnea/CPAP, PAF no AC due to bleeding, LEIA due to chronic blood loss who presents today for a cardiovascular medicine follow-upvisit as patient of Dr Ibarra. Has not had leg edema for a while now. Will get some swelling if standing for long time, like at voodoo but resolves quickly Has sleep apnea with new mask and now sleeps better. She overall feels better than she has in a long time. Does water therapy at her assisted living facility. [facility] [place] She denies shortness of breath, chest pain, [...] Age of Onset other ( age 60 [place]) Mother hypertension and TB other (pancreatic cancer) [...] Take 1 tablet by mouth once daily. qpkczhz-xynofmmqn-qbhthzj D3 500 mg-5 mcg (200 unit) per tablet Take 1 tablet by mouth once daily. omeprazole (PRILOSEC) 40 mg capsule Take 1 capsule by mouth once daily. fluticasone (FLONASE) 50 mcg/actuation nasal spray Use 2 Sprays in each nostril once daily. levothyroxine (LEVOXYL) 25 mcg tablet Take 1 tablet by mouth once daily. Take on empty stomach. ForThyroid escitalopram oxalate (LEXAPRO) 10 mg tablet Take [...] or cold intolerance, Excessive sweating, Frequent urination, Frequentthirst Objective PHYSICAL EXAMINATION: BP 130/60 Pulse 68 Ht 167.6 cm (5' 6) Wt 79.4 kg (175 lb) SpO2 97% [...] SINUS RHYTHM Confirmed by OBDULIA BERMEO DO ([id number]) on 10/08/2022 3:19:16 PM There were no [...] Ibarra in 6 months. CONTACT INFORMATION: Juliet Gaffney APRN.[facility] Cardiology Nurse Practitioner Section of [facility] Cardiology [facility] Dept of Cardiovascular Medicine [facility] [place] [address] [place] [address] Office Office documented in this encounterSt. Francis Hospital09-12-2023 Miscellaneous Notes* Telephone Encounter - Sheryl Mercado RN - 11/26/2022 3:09 PM EDT Sending message to provider to review chart and advise. Per Dr. Jasso, OK to place on her schedule. Spoke with patient; scheduled for 12/19 at 1:00 PM. Pt VU and is agreeable with date/time. * Telephone Encounter - Page Islas PSS - 11/26/2022 2:52 PM EDT Patient is wanting to schedule an injection. Please advise- Thanks Order entered for US guided injection right CMC joint, can we assist patient with scheduling, contact is Eloisa Moser. * Telephone Encounter - Stella Preciado PA-C - 11/26/2022 9:20 AM EDT Order entered for US guided injection right CMC joint, can we assist patient with scheduling, contact is Eloisa Moser. documented in this encounterSt. Francis Hospital09-11-2023 Instructions* Patient Instructions* Stella Preciado PA-C - 11/25/2022 3:27 PM EDT Patient presents today for repeat bilateral knee corticosteroid injections, previous injections were beneficial for several months. We will proceed with repeat injections. Patient can follow-up every91 days as needed for additional injections. No restrictions or limitations from a knee standpoint,can continue activities and to ambulate with Rolator as she feels comfortable doing so. documented in this encounterSt. Francis Hospital09-11-2023 History of Present illness Narrative* Page Ruiz RT(R) - 11/25/2022 2:10 PM EDT Radiology Service Progress Note PATIENT NAME: Christian [...] DEPARTMENT: General X-ray: Exam(s) Completed: Upper Extremity X- Ray(s): Wrist, right PERIPHERAL IV DATA: Not applicable SIGNED BY: RT Nithin(R) November 25, 2022 2:30 PM documented in this encounterSt. Francis Hospital09-11-2023 History of Present illness Narrative* Stella Preciado PA-C - 11/25/2022 2:05 PM EDTAssociated Order(s): Large Joint Arthro/Inj: bilateral knee joints Post-Procedure Diagnose(s): Primary osteoarthritis of both knees Large Joint Arthro/Inj: bilateral knee joints Informed Consent Consent Obtained: Verbal Alpha Protocol A moment to CARE was completed. [...] instruments, equipment or retained foreign bodies applicable. * Fozia Bedolla RN - 11/25/2022 1:33 PM EDT Patient presents with: Left Knee - Established Patient Right Knee - Established Patient: 6 months post visit OA bilateral knees with injection given. Wants injection today. Patient states injections helped bilateral knee pain before. Would like an injection again. Pain gets worse with weather. Patient is unable to take medication for RA due to liver issues. Patient useswalker to ambulate. AMB ROOMING INTAKE FLOWSHEET DATA Pain Pain Level: 4 (Weather makes pain worse. 11/24.) Pain Location: (Bilateral knees) Description: Aching, Burning, Dull, Sharp Duration Amount of Time: (Ongoing) documented in this encounterSt. Francis Hospital08-31-2023 Miscellaneous Notes* Telephone Encounter - Juliet Coombs - 11/14/2022 5:44 PM EDT Left VM on patient's home and mobile lines cancelling the patient's 12/11/22 cardiology appointment.Instructed the patient to call the office to reschedule. My Chart message sent. documented in this encounterSt. Francis Hospital07-11-2023 History of Present illness Narrative* Andria Joyner RN - 09/24/2022 2:35 PM EDT Patient is here for IVAD port flush per [facility] [place] protocol. IVAD is located in right upper [...] well. Andria Joyner RN documented in this encounterSt. Francis Hospital07-07-2023 Miscellaneous Notes* Telephone Encounter - Ana Cristina Melo RN - 09/20/2022 8:44 AM EDT Reviewed labs with Dr. Ibarra. Recommended pt to hold Eliquis. Would like pt to see Dr. Shields to discuss Watchmen Device. Reviewed recommendations to KASANDRA fulton Nurse Milagros at [facility]. Eloisa stated she will review Watchman recommendations to pt. Will contact us if she decided to pursue. * Telephone Encounter - Ana Cristina Melo RN - 09/20/2022 8:17 AM EDT Jie from [facility] ([phone]) in reg to Ms Tristin Landrum. CBC [...] risk and aware of this off anticoagulation. [id number] score 4 or approximately 7% annual stroke risk and has-bled score is 2 or 4% bleeding risk - Currently on metoprolol - patient and daughter wish to trial DOAC now Iron deficiency anemia Doing well with iron infusions with stable Hgb documented in this encounterSt. Francis Hospital06-22-2023 History of Present illness Narrative* Cecilio Ibarra, DO - 09/05/2022 9:12 AM EDT Images from the original note were not included. [facility] [place] [facility] Department of Cardiovascular Medicine SECTION OF CLINICAL CARDIOLOGY OUTPATIENT VISIT DATE April 09, 2022 OUTPATIENT VISIT TYPE ESTABLISHED Patient Name: Christian Landrum : 1935 PRIMARY CARE PHYSICIAN: Galina Iraheta MD [facility] 09/05/21 CHIEF COMPLAINT: No chief complaint on file. Ms. Landrum is an 87 y/o female who comes for a follow up visit. She has a h/o of PAF on Warfarin, rheumatic MV regurgitation, HTN, HLD, STUART, breast Ca, PMR and OA. Patient came to the OV with her daughter. She has been doing well since last visit denies any chestdiscomfort. She did have COVID 1-1/2 months ago [...] risk of potential stroke. She has been offwarfarin for about 2 months due to issues [...] risk and aware of this off anticoagulation. [id number] score 4 or approximately 7% annual stroke [...] the care of your patient. Please do nothesitate to contact me if there are any questions. Cecilio Ibarra, , FACC, FCCP, FACOI CARDIAC STUDIES: LV Ejection [...] 124/64 Pulse 69 Ht 167.6 cm (5' 6) Wt 78 kg (172 lb) BMI 27.76 kg/m PHYSICAL EXAMINATION: Vitals: There were no vitals taken for this visit. Neck: No jugular venous distention, no carotid bruits, carotids have a normal upstroke, no palpablethyromegaly. Lungs: Clear to auscultation bilaterally, no wheezing [...] Negative for: Weakness, Paralysis, Numbness, Tingling, Tremor, Nervousness,Depressed mood, Memory loss SKIN: Negative for: Rashes, Itching HEMATOLOGICAL/LYMPHATIC: Negative for: Easy bruising , Easy bleeding ENDOCRINE: Negative for: Heat or cold intolerance, Excessive sweating, Frequent urination, Frequentthirst ALLERGIES: Clindamycin, Keflex [Cephalexin], Naprosyn [Naproxen], Desmond Inhibitors, Adhesives [Other], [id number] [Diclofenac-Misoprostol], Blephamide [Sulfacetamide- Prednisolone], Ditropan [Oxybutynin], Flagyl[Metronidazole Hcl], Flexeril [Cyclobenzaprine], Hctz [Hydrochlorothiazide], Naproxen Sodium, [...] Age of Onset other ( age 60 [place]) Mother hypertension and TB other (pancreatic cancer) [...] Take 1 tablet by mouth once daily. sfvhssn-nvwqyxjui-ivdtass D3 500 mg-5 mcg (200 unit) per tablet Take 1 tablet by mouth once daily. omeprazole (PRILOSEC) 40 mg capsule Take 1 capsule by mouth once daily. fluticasone (FLONASE) 50 mcg/actuation nasal spray Use 2 Sprays in each nostril once daily. levothyroxine (LEVOXYL) 25 mcg tablet Take 1 tablet by mouth once daily. Take on empty stomach. ForThyroid escitalopram oxalate (LEXAPRO) 10 mg tablet Take [...] medications for this visit. documented in this encounterSt. Francis Hospital06-13-2023 History of Present illness Narrative* Cassidy Arreola APRN.TRAINING PROGRAM DEVELOPER - 08/27/2022 11:54 AM EDT Chief Complaint Patient presents with: Established Patient HPI: Christian Landrum is a 87 year old female who presents here today for follow up breast cancer/LEIA. Per Dr. Bonilla's previous note: H/o underwent a left-sided simple mastectomy for a T2 N0 stage IIA hormone- receptor negative by IHC(positive by RT-PCR testing), HER-2 nonamplified breast cancer. [...] for both; strong for ER, moderate for [place]). HER-2 3+. Had been using Estrace cream [...] negative for malignancy (0/1). SYNOPTIC REPORT OF HEREDIA PATHOLOGIC FINDINGS RIGHT BREAST MASTECTOMY: Part: B Specimen Laterality: Right Procedure: Total mastectomy (including nipple and skin) Wire Localization: Wire absent Lymph Node Sampling: Soudan lymph node(s) Tumor size: Size of largest [...] tamoxifen therapy. S/p underwent hysteroscopy D&C at [facility] on 08/23/[address] Hebert. Path. Benign. Pt. now resides at [facility]. Pt. here today with her daughter. Pt. had covid for the second time in 9 months. Participating in PT/OT now. Appetite:Good. Wt. stable. Energy level:75% maybe. I'm working at it. Denies fevers [...] Lymph 1.00 - 4.00 k/uL 1.35 1.57 [place]% % 11.0 11.2 Abs [place] <0.87 k/uL 0.54 0.68 Eosin% % 1.6 [...] V10.3, ICD10: Z85.3 (primary diagnosis) pT1b pN0(sln) ER/WV positive, HER2 positive invasive ductal carcinoma the [...] and edited as necessary for today's visit. Cassidy Arreola APRN.INGE documented in this encounterSt. Francis Hospital03-28-2023 Miscellaneous Notes* Telephone Encounter - Sadie Lin LPN - 06/11/2022 10:02 AM EDT Pt. Daughter notified of results, voiced understanding. Sadie Lin LPN * Telephone Encounter - Cassidy Arreola APRN.CNP - 06/11/2022 9:25 AM EDT Please inform pts. daughter no concerning finding on xray (sorry it took awhile for the result). Follow up as scheduled unless pain persists. Thank you. Cassidy Arreola APRN.CNP documented in this encounterSt. Francis Hospital03-22-2023 History of Present illness Narrative* Page Ruzi, RT(R) - 06/05/2022 11:40 AM EDT Radiology Service Progress Note PATIENT NAME: Christian [...] 05, 2022 12:37 PM documented in this encounterSt. Francis Hospital03-22-2023 History of Present illness Narrative* Cassidy Arreola APRN.TRAINING PROGRAM DEVELOPER - 06/05/2022 10:51 AM EDT Chief Complaint Patient presents with: Established Patient HPI: Christian Landrum is a 86 year old female who presents here today for complaints of R sided chest pain/rib pain. See phone note. Per Dr. Bonilla's previous note: H/o underwent a left-sided simple mastectomy for a T2 N0 stage IIA hormone- receptor negative by IHC(positive by RT-PCR testing), HER-2 nonamplified breast cancer. [...] for both; strong for ER, moderate for [place]). HER-2 3+. Had been using Estrace cream [...] negative for malignancy (0/1). SYNOPTIC REPORT OF HEREDIA PATHOLOGIC FINDINGS RIGHT BREAST MASTECTOMY: Part: B Specimen Laterality: Right Procedure: Total mastectomy (including nipple and skin) Wire Localization: Wire absent Lymph Node Sampling: Soudan lymph node(s) Tumor size: Size of largest [...] tamoxifen therapy. S/p underwent hysteroscopy D&C at [facility] on 08/23/[address] Hebert. Path. Benign. Pt. now resides at [facility]. Pt. here today with her daughter. Pt. started with R rib pain over a week ago. It went away after a couple days and now it's back. It doesn't hurt right now. Denies injury. Appetite:Good. Energy level:Bad. Denies fevers or recent illness. Resp:denies cough or sob, occ jennings-followed by PULM-using bi-pap, h/o allergies Cardiac:denies chest pain/palpitations h/o A.fib. GI:denies abd pain (H/o IBS, colitis), n/v, moving bowels regularly :denies dysuria/hematuria-chronic UTI-followed by Urology Extrem:h/o RA, joint pain dx in her 40's -followed by Rheum-off of methotrexate- takes tylenol as needed Endo:denies hot flashes Neuro:+neuropathy to feet-stable Skin:denies rashes/lesions Heme:denies bleeding since visit with REMEDIAL PROJECT MANAGER The ROS is otherwise negative. Past medical [...] V10.3, ICD10: Z85.3 (primary diagnosis) pT1b pN0(sln) ER/WV positive, HER2 positive invasive ductal carcinoma the [...] and edited as necessary for today's visit. Cassidy Arreola APRN.INGE documented in this encounterSt. Francis Hospital03-16-2023 Miscellaneous Notes* Telephone Encounter - Meredith Alonzo - 05/30/2022 3:07 PM EDT Spoke with Jie at [facility] and she stated that appointments need made with the patient's family as they are the ones that transport the patient. Spoke with patient's daughter, advising below, and scheduled May follow up as directed. Meredith Alonzo * Telephone Encounter - Lisa Morales LPN - 05/30/2022 1:42 PM EDT Left detailed message for Herminia with information below. I attempted to contact [facility], , they were unable to hear on their line. Unable to speak to anyone. I faxed this information to [phone]. Will attempt to contact again later. PSS- please contact [facility] to schedule as directed below. Lisa Morales LPN * Telephone Encounter - Cassidy Arreola APRN.CNP - 05/30/2022 1:24 PM EDT Noted. Monitor R lateral chest. If no improvement then OV in one week. OV/CBC/iron studies early July. Thank you. Cassidy Arreola APRN.INGE * Telephone Encounter - Lisa Morales LPN - 05/30/2022 12:59 PM EDT Last OV 03/06/2022. Patient c/o right sided [...] need to follow here? Lisa Morales LPN * Telephone Encounter - Page Delgadillo Pss - 05/30/2022 12:34 PM EDT Herminia from [facility] called stating patient is having right side pain, rib area. She is asking if imaging orders could be sent or if patient needs to be seen . She states concern due to hx breast cancer. Please call Herminia at [phone] documented in this encounterSt. Francis Hospital01-25-2023 Miscellaneous Notes* Telephone Encounter - Starla Son RN - 04/10/2022 8:15 AM EST Daughter called stating that patient mentioned yesterday [...] monitor symptoms. Daughter stated patient did not haveany nausea, dizziness, SOB, or reflux symptoms when the episode occurred. Daughter wanted to reportsymptoms to Dr. Bonilla in case this is a contraindication to receive the iron. Patient is scheduled for dose #2 of iron today. Starla Son RN documented in this encounterSt. Francis Hospital01-24-2023 Instructions* Patient Instructions* Taty Perez APRN.INGE - 04/09/2022 3:08 PM EST We reviewed some recent symptoms of chest pain We agreed to monitor for now as you want more conservative management. If you change you mind I will order a stress test and echo to check for heart function and possibledecreased blood flow. Continue same meds for now. Check blood pressure twice a day - please fax BP readings to [phone] I would like to know if your [...] sodium diet is recommended documented in this encounterSt. Francis Hospital01-24-2023 History of Present illness Narrative* Taty Perez APRN.INGE - 04/09/2022 2:44 PM EST Images from the original note were not included. [facility] [place] [facility] Department of Cardiovascular Medicine SECTION OF CLINICAL CARDIOLOGY OUTPATIENT VISIT DATE April 09, 2022 OUTPATIENT VISIT TYPE ESTABLISHED Some documentation from previous visit of 09/05/2021 was copied and pasted, documentation has been reviewed and edited as necessary for today's visit. Patient Name: Christian Landrum : 1935 PRIMARY CARE PHYSICIAN: Galina Iraheta MD CHIEF COMPLAINT: Patient presents with: Follow [...] the pain was occurring. That resolved without anyintervention. Yesterday she received the first of 5 iron infusions. She reports good fluid intake as well as adequate nutrition at home. She has not been taking her warfarin and is aware of the risk of potential stroke. She has been offwarfarin for about 2 months due to issues [...] which included preparing to see the patient, ubpo-gs-[id number] patient care, completing clinical documentation, performing a medically appropriate examination, counseling and educating the patient/family/caregiver, ordering medications, tests, or p rocedures, and communicating results to the patient/family/caregiver. Thank you very much for allowing me to assist in the care of Christian Landrum. Please do not hesitate to contact me if you have questions or concerns. Taty Perez APRN.[facility] Cardiology Nurse Practitioner Section of Regional Cardiology [facility] Dept of Cardiovascular Medicine [facility] [place] [address] [place] [address] Office Office April 09, 2022 2:44 PM This note was partially generated using Vastrm voice recognition system and may contain errors [...] Adult) Pulse 75 Ht 167.6 cm (5' 6) Wt 76.7 kg (169 lb) SpO2 98% BMI 27.28 kg/m General: Well appearing, in no acute distress. Skin: No clubbing, no cyanosis. Eyes: Extra ocular movements intact Oropharynx: Teeth in good repair. Neck: No jugular venous distention, no carotid bruits, carotids have a normal upstroke, no palpablethyromegaly. Lungs: Clear to auscultation bilaterally, no wheezing [...] Negative for: Weakness, Paralysis, Numbness, Tingling, Tremor, Nervousness,Depressed mood, Memory loss SKIN: Negative for: Rashes, Itching HEMATOLOGICAL/LYMPHATIC: Negative for: Easy bruising , Easy bleeding ENDOCRINE: Negative for: Heat or cold intolerance, Excessive sweating, Frequent urination, Frequentthirst ALLERGIES: Clindamycin, Keflex [Cephalexin], Naprosyn [Naproxen], Desmond Inhibitors, Adhesives [Other], [id number] [Diclofenac-Misoprostol], Blephamide [Sulfacetamide- Prednisolone], Ditropan [Oxybutynin], Flagyl[Metronidazole Hcl], Flexeril [Cyclobenzaprine], Hctz [Hydrochlorothiazide], Naproxen Sodium, [...] Age of Onset other ( age 60 [place]) Mother hypertension and TB other (pancreatic cancer) [...] PFSH and ROS obtained by others. Taty Perez, FISH HATCHERY WORKER.TRAINING PROGRAM DEVELOPER CURRENT MEDICATIONS: Current Outpatient Medications Medication Sig [...] once daily. Take on empty stomach. ForThyroid escitalopram oxalate (LEXAPRO) 10 mg tablet Take 1 tablet by mouth once daily. cetirizine (ZYRTEC) 10 mg tablet Take 1 tablet by mouth once daily. MULTIVITAMIN TAB Take 1 tablet by mouth once daily. usgrtxa-jzgjryvrz-orjmpyq D3 500 mg-5 mcg (200 unit) per tablet Take 1 tablet by mouth once daily. omeprazole (PRILOSEC) 40 mg capsule Take 1 capsule by mouth once daily. gabapentin (NEURONTIN) 600 mg tablet Take 0.5 tablets by mouth once daily. (Patient taking differently: Take 300 mg by mouth daily at bedtime.) No current facility-administered medications for this visit. documented in this encounterSt. Francis Hospital01-23-2023 History of Present illness Narrative* Naat Morrison RN - 04/08/2022 11:07 AM EST documented in this encounterSt. Francis Hospital01-09-2023 Miscellaneous Notes* Telephone Encounter - DHEERAJ Wood - 03/25/2022 11:35 AM EST Spoke with patients daughter and scheduled * Telephone Encounter - DHEERAJ Wood - 03/25/2022 10:49 AM EST Called patients daughter to schedule, but she didn't have her calender. She will call back to schedule. * Telephone Encounter - Lisa Morales LPN - 03/25/2022 8:50 AM EST Patient is aware of all information and verbalized understanding. PSS- patient is asking that you contact her daughter to schedule iron infusions, as she is the patient's transportation. Lisa Morales LPN * Telephone Encounter - Sal Bonilla DO - 03/24/2022 2:01 PM EST Her hemoglobin was 7.7 g/dL on 03/04. She received it unit red blood cell transfusion on 03/05. A CBC done at [facility] on 03/07 Showed that the hemoglobin increased to 10.8 g/dL. Itis the same on the recent CBC from [...] infusion. Sal Bonilla DO documented in this encounterSt. Francis Hospital01-06-2023 Miscellaneous Notes* Telephone Encounter - Dayami Pinto - 03/22/2022 1:47 PM EST PT scheduled * Telephone Encounter - Sal Bonilla DO - 03/21/2022 5:36 PM EST Thank you. Order filed. Sal Bonilla DO * Telephone Encounter - Lisa Morales LPN - 03/21/2022 5:[address] Bonilla- please file new CBC order. PSS- please schedule patient for a lab/port appointment for 03/22/2022 @ 1:30 CBC(?TX)/STREV* No need to notify patient's daughter, she is aware of date and time. Lisa Morales LPN documented in this encounterSt. Francis Hospital12-27-2022 Miscellaneous Notes* Telephone Encounter - Dayami Pinto - 03/12/2022 10:43 AM EST Called and spoke with pt's daughter and scheduled as directed * Telephone Encounter - Sal Bonilla DO - 03/12/2022 10:31 AM EST Noted. Thank you. Sal Bonilla DO * Telephone Encounter - Anneliese Garcia LPN - 03/12/2022 10:08 AM EST Spoke to Eloisa, she will bring pt in for a lab port draw and picker feeder hemoccult cards at the desk (labeled and at nurses station for picker feeder when she comes in).PSS please reach our to Eloisa and schedule her lab port. Eloisa states she is no longer on coumadin stopped about 2 months ago for issues with bleeding andgetting positive occult tests on and off. She states pt has had a history of bowel resection and would not want any more surgery. Anneliese Garcia LPN * Telephone Encounter - Anneliese Garcia LPN - 03/12/2022 9:57 AM EST Left message on [employer] phone to call me back to review some of this information with her first. Anneliese Garcia LPN * Telephone Encounter - Sal Bonilla DO - 03/12/2022 9:21 AM EST A review of her CBCs indicates her MCV has been trending lower. It was 104 in the fall 2020 and nowis 82.7. She was on warfarin at least until October 2021. From the notes in it is difficult to know whether or not [facility]. Her iron levels were low when measured last June. Therefore, it would be best to start by ruling out iron deficiency anemia. I put in basic lab work and she will need to complete stool sample cards to rule out occult bleeding. Lets get this lab work and stool cards completed then we can decide on when or if she needsconsultation for this. She may just need parenteral iron replacement and a work-up for GI bleeding. Sal Bonilla DO * Telephone Encounter - Meredith Alonzo - 03/06/2022 2:58 PM EST Per Cassidy's Check Out Note, patient needs to be seen by Dr. Bonilla for an anemia work up as patient was previously seen by Dr. Bonilla. Dr. Bonilla - please advise how to schedule. Meredith Alonzo documented in this encounterSt. Francis Hospital12-21-2022 History of Present illness Narrative* Cassidy Arreola APRN.INGE - 03/06/2022 2:26 PM EST Chief Complaint Patient presents with: Established Patient HPI: Christian Landrum is a 86 year old female who presents here today for follow up breast cancer. Per Dr. Bonilla's previous note: H/o underwent a left-sided simple mastectomy for a T2 N0 stage IIA hormone- receptor negative by IHC(positive by RT-PCR testing), HER-2 nonamplified breast cancer. [...] for both; strong for ER, moderate for [place]). HER-2 3+. Had been using Estrace cream [...] negative for malignancy (0/1). SYNOPTIC REPORT OF HEREDIA PATHOLOGIC FINDINGS RIGHT BREAST MASTECTOMY: Part: B Specimen Laterality: Right Procedure: Total mastectomy (including nipple and skin) Wire Localization: Wire absent Lymph Node Sampling: Soudan lymph node(s) Tumor size: Size of largest [...] tamoxifen therapy. S/p underwent hysteroscopy D&C at [facility] on 08/23/[address] Hebert. Path. Benign. [facility] [facility]. Labs have been monitored there. She received two units of blood today. Has been receiving blood transfusions since September. Pt. here today with her daughter. Appetite:Good. Energy level:Bad. Denies fevers or recent illness. Resp:denies cough or sob, occ jennings-followed by PULM-using bi-pap, h/o allergies Cardiac:denies chest pain/palpitations h/o A.fib. GI:denies abd pain (H/o IBS, colitis), n/v, moving bowels regularly :denies dysuria/hematuria-chronic UTI-followed by Urology Extrem:h/o RA, joint pain dx in her 40's -followed by Rheum-off of methotrexate- takes tylenol as needed Endo:denies hot flashes Neuro:+neuropathy to feet-stable Skin:denies rashes/lesions Heme:denies bleeding since visit with REMEDIAL PROJECT MANAGER The ROS is otherwise negative. Past medical [...] of right breast of female, estrogen receptor positive(HCC) - ICD9: 174.3, V86.0, ICD10: C50.311, Z17.0 pT1b pN0(sln) ER/WV positive, HER2 positive invasive ductal carcinoma the [...] and edited as necessary for today's visit. Cassidy Arreola APRN.INGE documented in this encounterSt. Francis Hospital11-22-2022 History of Present illness Narrative* Vania Horan RN - 02/05/2022 7:32 AM EST Patient is here for IVAD port flush per [facility] protocol. IVAD is located in right upper chest. Site cleansed with Chloraprep IVAD accessed with a #20 gauge 3/4 non-coring Gripper needle Blood Return: Good Flushed with: 20 ml Normal Saline and 5 ml Heparin Lock Flush Non-coring needle removed. Paper tape applied to puncture site. Port site negative for redness, edema or tenderness. Patient tolerated procedure well. documented in this encounterSt. Francis Hospital11-07-2022 History of Present illness Narrative* Stella Preciado PA-C - 01/21/2022 2:58 PM ESTAssociated Order(s): Large Joint Arthro/Inj: R knee joint Post-Procedure Diagnose(s): Primary osteoarthritis of both knees; Chronic pain of right knee Stella Preciado PA-C Department of Orthopaedics Orthopaedics [address] [facility] [address] Dept: [phone] Dept January 21, 2022 CHIEF COMPLAINT: Established Patient of the Left Knee, Established Patient of the Right Knee, and Last seen 11/09/20 S/P Left ring trigger finger release (09/14 Ms. Christian Landrum is a 86 year old female who presents with bilateral knee pain R>L for aboutthe past few months. Pain is mostly anterior, worse with increased activity, she has been participating in physical therapy to work on her balance. She believes this may be irritating her knee pain. She has rheumatoid arthritis, she had to discontinue her methotrexate about 1 year ago, she notes some increased knee pain since discontinuing the medication. She recalls having injections in her kneeyears ago, found them to be very helpful. [...] full extension, internal/external rotation adequate, and no painwith log roll Neurovascular Status: Sensation Intact, Moves foot and ankle up & down, and 2+ dorsalis pedis Large Joint Arthro/Inj: R knee joint Informed Consent Consent Obtained: Verbal Alpha Protocol A moment to CARE was completed. [...] knee osteoarthritis with interval progression as described. Lifeguard: GRANT Transcribe Date/Time: Jul 09 2021 7:03P [...] Take 1 tablet by mouth once daily. taycbwj-isdscljrn-oyalwxr D3 500 mg-5 mcg (200 unit) per [...] once daily. Take on empty stomach. ForThyroid escitalopram oxalate (LEXAPRO) 10 mg tablet Take [...] by mouth once daily. (Patient not taking: Reportedon 01/21/2022) MEDICAL SUPPLY Zippered compression stockings.- 1 [...] anxiety) This note was partially generated using Vast[employer] voice recognition system, and there may be some incorrect words, spellings, and punctuation that were not noted in checking the note before saving. Stlela Preciado PA-C * Corrine Osei Ma - 01/21/2022 1:57 PM EST Patient presents with: Left Knee - Established [...] Eloisa with patient today. documented in this encounterSt. Francis Hospital10-19-2022 NoteHNO ID: [id number] Author: Basilia Hernández MD Service: ? Author [...] stool Pain: no Abnormal Vaginal Discharge: no REMEDIAL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: Last Pap: Date:04/18/20 NIL; Last Mammogram: [...] Decision Making Level: 4 - Moderate Basilia Hernández, [facility]10-19-2022 Instructions* Patient Instructions* Basilia Hernández MD - 01/02/2022 2:08 PM EDT Follow up with Vikash Sylvester NP in 6 months or sooner as needed documented in this encounterSt. Francis Hospital10-19-2022 History of Present illness Narrative* Basilia Hernández MD - 01/02/2022 1:45 PM EDT Female Pelvic Medicine & Reconstructive Surgery Follow-Up [...] and anemia due to interaction between Hiprex andcoumadin. Required transfusion. Now off coumadin. Was on for Afib. No UTIs since last visit. No new urine cultures Urinary Incontinence: yes, ISRA Voiding Dysfunction: no Urinary Frequency: no Urinary Urgency: yes, Prolapse Symptoms: no Defecatory Dysfunction: no Fecal Incontinence: no Abnormal Bleeding: yes, blood in stool Pain: no Abnormal Vaginal Discharge: no REMEDIAL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: Last Pap: Date:04/18/20 NIL; Last Mammogram: Her last mammogram was 2015 . She has a previous history of an abnormal mammogram with breast cancer diagnosed in 2007 and 2016. LMP: No LMP recorded. Patient is postmenopausal.; [...] Moderate Basilia Hernández MD documented in this encounterSt. Francis Hospital10-11-2022 Miscellaneous Notes* Telephone Encounter - Jayde Link RN - 12/25/2021 10:47 AM EDT Galina Castro SAP BW CONSULTANT called regarding patient's Coumadin, has been having anemia and bloody stool. Asking if Coumadin can be held/stopped temporarily. Coumadin has been ordered by PCP, not cardiology office. Spoke with SAP BW CONSULTANT, explained Dr. Ibarra was not managing patient's Coumadin. SAP BW CONSULTANT stated patient is no longer seeing Dr. Iraheta and has new PCP; requesting orders from Dr. Ibarra. Advised SAP BW CONSULTANT to follow up with new PCP/physician managing Coumadin. Per Dr. Ibarra's notes, anemia has been chronic issue. documented in this encounterSt. Francis Hospital08-30-2022 History of Present illness Narrative* Jerrica Bhat RN - 11/13/2021 9:57 AM EDT Patient is here for IVAD port flush per [facility] protocol. IVAD is located in right upper chest. Site cleansed with Chloraprep IVAD accessed with a #20 gauge 3/4 non-coring Gripper needle Blood Return: Good Flushed with: 20 ml Normal Saline Non-coring needle removed. Paper tape applied to puncture site. Port site negative for redness, edema or tenderness. Patient tolerated procedure well. documented in this encounterSt. Francis Hospital08-22-2022 Miscellaneous Notes* Telephone Encounter - Galina Iraheta MD - 11/05/2021 5:17 PM EDT noted * Telephone Encounter - Maria A Camacho (Loss Prevention Operations Manager) - 11/05/2021 9:35 AM EDT PATIENT CALL Patient's daughter called and stated [...] re-referred, if deemed appropriate. Maria A Camacho; needle molder (Loss Prevention Operations Manager) Pharmacy Anticoagulation Clinic documented in this encounterSt. Francis Hospital08-19-2022 Miscellaneous Notes* Telephone Encounter - An Ta APRN.CNP - 11/02/2021 2:49 PM EDT Noted. An Ta APRN.CNP * Telephone Encounter - Nata Lemon LPN - 11/02/2021 1:12 PM EDT Patient daughter Gia returned call and said her mother is at [facility] and Dr Alejo Salcido is taking over as provider. She had hemoglobin of 6 a few weeks ago and had 2 units blood. She has not been off coumadin since transfusion was given. They are not going to do any more proce dures on mother, not sure where she is bleeding from. She has stopped her methotrexate also. She isgoing to let Dr Salcido monitor her INR. Cancelled appt with Dr Iraheta for next week also as requested. . * Telephone Encounter - Yoly Clayton Ma - 11/02/2021 1:02 PM EDT Left message on daughter's VM for return call. * Telephone Encounter - An Ta APRN.CNP - 11/02/2021 12:12 PM EDT Hgb is 8.5. When was last INR drawn? If not within the last few days, please get this drawn. Are there any signs or symptoms of bleeding? If not she can restart coumadin at previous dosing. Also recheck cbc next week. Thank you An Ta APRN.INGE * Telephone Encounter - An Ta APRN.CNP - 11/02/2021 8:[address] fax on providers desk when received. Thank you An Ta APRN.CNP * Telephone Encounter - Nury Guerin LPN - 10/29/2021 5:21 PM EDT Spoke with nurse from Assisted living and they are faxing over the blood work that was drawn today which included a CBC. Also, sending them med list for this patient Awaiting fax from assisted living. Nury Guerin LPN * Telephone Encounter - Galina Iraheta MD - 10/29/2021 5:11 PM EDT Staff, Do we have a recent cbc on patient.? If not I would like the assisted living to draw cbc for patient and check her cbc Orders are being placed * Telephone Encounter - Una Garcia RN - 10/26/2021 2:53 PM EDT Received call from Maximus MERCADO with [facility]. Patient was admitted to facility today. Maximus asking for clarification on when patient should resume Coumadin and dosage as well as when next INR needs to be drawn. Maximus requests orders be faxed to [phone] or called to [phone]. Maximus requested updated medication list be faxed. Faxed per request. Please review and advise, Una Garcia RN * Telephone Encounter - Nury Andres RPh - 10/25/2021 12:54 PM EDT Spoke to patient. She is staying with her daughter. She is currently off warfarin and waiting for call back from Dr. Iraheta with instructions on when toresume. * Telephone Encounter - Nury Andres RPh - 10/23/2021 4:30 PM EDT Called patient and left VM to call PAC at [phone]. Is she is Assisted Living facility? documented in this encounterSt. Francis Hospital08-04-2022 Miscellaneous Notes* Telephone Encounter - Yoly Clayton Ma - 10/18/2021 3:47 PM EDT Patient currently being seen in [facility] ER. * Telephone Encounter - An Ta APRN.TRAINING PROGRAM DEVELOPER - 10/18/2021 3:39 PM EDT Please get update from daughter on how patient is feeling, and if they heard back from [facility]. Thank you An Ta APRN.CNP * Telephone Encounter - Nata Lemon LPN - 10/18/2021 9:00 AM EDT Patient daughter Eloisa calling mother woke up with fever 100.5 this morning. She was having body aches yesterday. She is scheduled for blood transfusion today at [facility] her hemoglobin is 6.5 and daughter has called transfusion center at [facility] and left message. Eloisa did home COVID test and mother was positive. documented in this encounterSt. Francis Hospital08-03-2022 Miscellaneous Notes* Telephone Encounter - Jerrica Rothman RP - 10/17/2021 3:58 PM EDT [place] [facility] was called for anticoagulation follow-up. PT INR (no units) Date Value 10/16/2021 2.1 (biotel) 10/13/2021 4.8 06/06/2021 3.1 (biotel) INR (no units) Date Value 10/16/2021 1.9 INR Home CoaguChek (no units) Date Value 10/13/2021 3.8 10/02/2021 2.9 09/19/2021 2.2 Called pt and LM. Spoke to Eloisa her daughter. Due to low Hgb, she is getting a transfusion at [facility]. She said the patient will be at an assisted living starting on 10/22. If she starts back on warfarin then they may manage it. Eloisa said that pt's warfarin is still on hold. She asked that we check back next week on her status. Jerrica Rothman, [facility] * Telephone Encounter - Jerrica Rothman RPh - 10/17/2021 2:20 PM EDT I can call the patient re: INR (as we typically do) but is she to hold warfarin for now? Per note below from our pharmacist Tesha. Jerrica Rothman PharmD Pharmacy Anticoagulation Clinic * Telephone Encounter - Nury Guerin LPN - 10/17/2021 1:22 PM EDT Please address INR from today see below notes from pharmacist. Nury Guerin LPN * Telephone Encounter - Maria A Khanna RN - 10/17/2021 12:07 PM EDT Pts kateyugher called and reports she was notified of providers results and instructions. She voices understanding and is taking her mother to the hospital to get the type and cross done now. Maria A Khanna RN * Telephone Encounter - Nury Guerin LPN - 10/17/2021 11:48 AM EDT Spoke with patient about instructions and left message with daughter about instructions for blood transfusion. Patient is wanting to know instructions for coumadin since it is 2.1 now? Blood tranfusion orders faxed to [facility] Please review and advise. Nury Guerin LPN * Telephone Encounter - Jerrica Rothman RPh - 10/17/2021 9:12 AM EDT INR yesterday (10/16) was 2.1 via Biotel. * Telephone Encounter - Galina Iraheta MD - 10/16/2021 6:32 PM EDT We will have to transfuse 2 units of RBcs to patient Please get the forms for [facility] and inform patient of the same * Telephone Encounter - Tesah Arias [facility] - 10/16/2021 6:01 PM EDT Called and stp- per Dr. Iraheta pt to hold off on warfarin. Pt's Hgb was 6.5 today, will reach out to Dr. Iraheta for clarification on resuming anticoag Tesha Arias PharmD documented in this encounterSt. Francis Hospital08-03-2022 Miscellaneous Notes* Telephone Encounter - Ramila Castro LPN - 10/17/2021 2:00 PM EDT Soraya with [facility] Marge called and states pt is coming in for a cross and type. Identified pt withname and date of . Requested a copy of last H & H, faxed CBC to [phone]. Ramila Castro LPN documented in this encounterSt. Francis Hospital08-01-2022 Miscellaneous Notes* Telephone Encounter - Nury Guerin LPN - 10/15/2021 5:38 PM EDT Patient daughter notified of instructions. Nury Guerin LPN * Telephone Encounter - Galina Iraheta MD - 10/15/2021 5:20 PM EDT Check inr when patient comes in tomorrow for port flush along with checking cbc. If she needs to take the hiprex we will have to titrate her coumadin accordingly and she should be able to continue the coumadin * Telephone Encounter - Ramila Castro LPN - 10/15/2021 1:55 PM EDT Daughter Eloisa called with the followin. Friday10-13-21 [...] this medication. Advice. 4. Moving pt to [facility] 10-22-21. Please advise daughter on cell phone or send a [employer] message Gia Ford (CC Ortho)on teams. documented in this encounterSt. Francis Hospital08-01-2022 Miscellaneous Notes* Telephone Encounter - Vito Pierre [facility] - 10/15/2021 11:[address] [facility] Anticoagulation Episode Summary Anticoagulation Care Providers Provider Role Specialty Phone number Galina Iraheta MD [facility] Internal Medicine [phone] Christian Landrum is a 86 year old [...] it has been bleeding off and on sincethen - advised patient to call PCP or go to ED for evaluation. Plan: Current Warfarin Dosing As of 10/15/2021 Full warfarin instructions: 10/15: Hold; Otherwise 2 mg every Tu; 1 mg all other days Called and spoke to patient/caregiver Patient reports that she held her dose yesterday - advised patient to hold warfarin again today, and recheck INR tomorrow. Next INR check due on 10/16/2021 Patient verbalizes understanding of the plan. Vito Jay RPh Clinical Pharmacist, Pharmacy Anticoagulation Clinic Pharmacy Anticoagulation Clinic Pager: [phone]. documented in this encounterSt. Francis Hospital07-28-2022 History of Present illness Narrative* Jeancarlos Hooker MD - 10/11/2021 8:10 AM EDT Consultation requested by Dr. Basilia Hernández MD for an opinion regarding recurrent UTI. My final recommendations will be communicated back to the requesting physician by way of shared medical recordor letter via US mail HPI 86 yr [...] removed with a cold snare. D&C at [place] a month or two ago for uterine [...] Age of Onset other ( age 60 [place]) Mother hypertension and TB other (pancreatic cancer) [...] microbiology would be macrobid, which I'm very hesitantto use chronically in an elderly woman because [...] MD October 11, 2021 documented in this encounterSt. Francis Hospital07-13-2022 NoteHNO ID: [id number] Author: Basilia Hernández MD Service: ? Author Type: Physician Type: Progress Notes Filed: 09/28/2021 1:52 PM Note Text: Female Pelvic Medicine AND Reconstructive Surgery Consult CHIEF COMPLAINT: Christian Landrum is a 86 year old female who presents for consultation requested by Dr. Jayde Hebert MD for an opinion regarding Recurrent UTI, mixed stress and urgency urinary incontinence. HISTORY OF PRESENT ILLNESS: Pt and daughter here for visit. Reports long standing h/o recurrent UTIs, used to see Dr. Burris at [facility]. Prior colovesical fistula, s/p sigmoid colectomy. Using [...] >=60 mL/min/1.73m? 79 Medical and Symptom History: REMEDIAL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: Last Pap: Date:04/18/20 NIL; Last Mammogram: [...] DIAGNOSTIC 01/09/2021 - HYSTEROSCOPY (more content not included)...[facility] 09-26-2021 Instructions* Patient Instructions* Basilia Hernández MD - 09/26/2021 2:57 PM EDT Follow up with Dr. Hernández in 3 months Schedule appointment with infectious disease Start Hiprex Continue vaginal estrogen Consider trying D-mannose Your doctor has placed a standing order for urine culture. When you have symptoms of a urine infection, go to a [facility] lab facility and submit a urine [...] ask any laboratory employee. documented in this encounterSt. Francis Hospital07-13-2022 History of Present illness Narrative* Basilia Hernández MD - 09/26/2021 2:00 PM EDT Female Pelvic Medicine & Reconstructive Surgery Consult CHIEF COMPLAINT: Christian Landrum is a 86 year old female who presents for consultation requested by Dr. Jayde Hebert MD for an opinion regarding Recurrent UTI, mixed stress and urgency urinary incontinence. HISTORY OF PRESENT ILLNESS: Pt and daughter here for visit. Reports long standing h/o recurrent UTIs, used to see Dr. Burris at [facility]. Prior colovesical fistula, s/p sigmoid colectomy. Using [...] >=60 mL/min/1.73m 79 Medical and Symptom History: REMEDIAL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: Last Pap: Date:04/18/20 NIL; Last Mammogram: Her last mammogram was . She has a previoushistory of an abnormal mammogram with breast cancer [...] have or complete a bowel movement? Yes, notat all bothersome (1) Usually experience a feeling [...] Age of Onset other ( age 60 [place]) Mother hypertension and TB other (pancreatic cancer) [...] once daily. Take on empty stomach. ForThyroid escitalopram oxalate (LEXAPRO) 10 mg tablet Take [...] tablet by mouth twice daily with meals. wsunhgw-zjsobkjlj-wwslnvq D3 500 mg-5 mcg (200 unit) per [...] PFSH and ROS obtained by others. Basilia Hernádnez MD Players Club Representative offered: Patient accepts, visit chaperoned by Jane [...] Post Wall - Normal support Cervix / Flom - Normal support POP-Q: Prolapse Noted: No [...] mail. Basilia Hernández MD documented in this encounterSt. Francis Hospital07-06-2022 Miscellaneous Notes* Telephone Encounter - Jerrica Rothman RPh - 09/19/2021 11:03 AM EDT [employer] message sent for therapeutic INR. documented in this encounterSt. Francis Hospital07-05-2022 History of Present illness Narrative* Cassidy Arreola APRN.TRAINING PROGRAM DEVELOPER - 09/18/2021 9:29 AM EDT Chief Complaint Patient presents with: Established Patient HPI: Christian Landrum is a 86 year old female who presents here today for follow up breast cancer. Per Dr. Bonilla's previous note: H/o underwent a left-sided simple mastectomy for a T2 N0 stage IIA hormone- receptor negative by IHC(positive by RT-PCR testing), HER-2 nonamplified breast cancer. [...] for both; strong for ER, moderate for [place]). HER-2 3+. Had been using Estrace cream [...] negative for malignancy (0/1). SYNOPTIC REPORT OF HEREDIA PATHOLOGIC FINDINGS RIGHT BREAST MASTECTOMY: Part: B Specimen Laterality: Right Procedure: Total mastectomy (including nipple and skin) Wire Localization: Wire absent Lymph Node Sampling: [place] lymph node(s) Tumor size: Size of largest [...] Dr. Das. She was then admitted to [facility] for weakness end of June. Admitted to [place] for UTI end of July. During that time her . S/p underwent hysteroscopy D&C at [facility] on 08/23/[address] Hebert. Path. Benign. 09/11/21-vaginal bleeding was seen by Dr. Hebert. Pt. participating in PT. Appetite:I've been eating. My sister has been here from [place]. Energy level:I sleep a lot. Denies fevers. Resp:denies cough or sob-followed by PULM-using bi-pap, h/o allergies Cardiac:denies chest pain/palpitations h/o A.fib. On coumadin. GI:denies abd pain (H/o IBS, colitis), n/v, moving bowels regularly :+dysuria, denies hematuria-chronic UTI-has plans to see urogyn Extrem:h/o RA, joint pain dx in her 40's -followed by Rheum-off of methotrexate- takes tylenol as needed Endo:denies hot flashes Neuro:+neuropathy to feet-stable Skin:denies rashes/lesions Heme:denies bleeding since visit with REMEDIAL PROJECT MANAGER The ROS is otherwise negative. Past medical [...] normoactive, soft, non-tender, non-distended, without organomegaly or palpablemasses EXTREMITIES No edema NEURO Awake, alert and oriented x 3, Normal gait and No involuntary motions. SKIN Skin color, texture, turgor normal, no suspicious rashes or lesions ASSESSMENT/PLAN: 1. Malignant neoplasm of lower-inner quadrant of right breast of female, estrogen receptor positive(HCC) - ICD9: 174.3, V86.0, ICD10: C50.311, Z17.0 pT1b pN0(sln) ER/[place] positive, HER2 positive invasive ductal carcinoma the [...] and edited as necessary for today's visit. Cassidy Arreola APRN.INGE documented in this encounterSt. Francis Hospital07-05-2022 Nurse Note* Sadie Lin LPN - 09/18/2021 9:17 AM EDT Est. Pt. 6 month f/u Sadie Lin LPN documented in this encounterSt. Francis Hospital06-29-2022 Miscellaneous Notes* Telephone Encounter - Jerrica Rothman RPh - 09/12/2021 11:32 AM EDT Stp - reviewed Dr. King's note from yesterday's OV. Pt reports no further issues - bleeding concerns. She resumed yesterday taking 1mg - 09/11. Advised her to continue her current dose and retest next week. Jerrica Rothman PharmD * Telephone Encounter - Maria A Camacho (CompassMD) - 09/12/2021 9:03 AM EDT PATIENT CALL Patient called call center regarding procedure. Patient called and left message after hours that stated she had her procedure on 09/11 and MD had advised her to resume her warfarin. Patient wanted to call and let [facility] know. Patient can be reached at [phone]. Maria A Camacho (CompassMD) * Telephone Encounter - Nury Andres [facility] - 09/11/2021 8:49 AM EDT Spoke to patient. She has not taken warfarin for past 5 days due to vaginal bleeding. She has a n appointment today with unified communications engineer for cauterization. Advised she call PAC back after appt to let us know when she can resume warfarin. PT INR (no units) Date Value 06/06/2021 3.1 (biotel) 05/23/2021 2.5 (biotel) 03/15/2021 1.9 INR Home CoaguChek (no units) Date Value 09/10/2021 1.6 09/04/2021 2.0 08/22/2021 2.7 Nury Andres, Pharmacist * Telephone Encounter - Kevin Torres (CompassMD) - 09/11/2021 8:42 AM EDT PATIENT CALL Judith called call center regarding results and left message after hours 09/10/2021 at 7:30pm. Patient also called and left message (transferred from [facility]) stating that she is having some bleedingissues and hasn't taken warfarin for at least five days. Please see yesterdays POWER BRAKE OPERATOR encounter as well. Received call from Vincecarli Remote INR for patient. Patient tested on 09/10/2021 with out of range INR result of 1.6. PT INR (no units) Date Value 06/06/2021 3.1 (biotel) 05/23/2021 2.5 (biotel) 03/15/2021 1.9 INR Home CoaguChek (no units) Date Value 09/10/2021 1.6 09/04/2021 2.0 08/22/2021 2.7 Patient can be reached at [phone]. Kevin Torres, Pharmacy Anticoagulation Clinic documented in this encounterSt. Francis Hospital06-28-2022 History of Present illness Narrative* Jayde Hebert MD - 09/11/2021 10:39 AM EDT Christian Landrum is a 86 year old female who presents for problem visit for c/o vaginal bleeding. Bleeding was bright red for a few days, some small dime- sized clots. Slowed to spotting yesterday, none today. Stopped coumadin again for 2 days. No UTIS symptoms. OB History T3 L3 SAB0 IAB0 Ectopic0 Multiple0 Live Births0 Comment: Menarche 12 fftp 26. natural menopause 50+ Menarche: 12; Age at 1st : 26; LIBERTY/BSO at age 51 due to ovarian tumor Hat Measurer History LMP: Postmenopausal Age at Menarche: Age at First : Age at Menopause: Hat Measurer History Comments: Sexual Activity: Not Currently; Male [...] Age of Onset other ( age 60 [place]) Mother hypertension and TB other (pancreatic cancer) [...] mg capsule Take 1 capsule by mouth twicedaily for 10 days. metoprolol succinate ER (TOPROL XL) 25 mg 24 hr tablet Take 1 tablet by mouth once daily. gcagezi-gfcesrrui-hqgtvdq D3 500 mg-5 mcg (200 unit) per [...] once daily. Take on empty stomach. ForThyroid escitalopram oxalate (LEXAPRO) 10 mg tablet Take [...] GENERAL: pleasant, female in no apparent distress REMEDIAL PROJECT MANAGER: normal external genitalia, no blood present. Vagina [...] (optional for EMERGENT procedures): No specimen collected. Jayde Hebert MD Procedure note- LEEP speculum placed, [...] D/w her that she had bleeding before D&Cand uncertain where that was coming from as no uterine pathology noted. A hyst would have signif risks for her. D/ wher endometrial ablation would be off label but would consider for palliative, quality of life management but would be risk of missing underlying ca. Will monitor bleeding for now, f/u w/ urogyn for bladder infections and return if needed. Medical Decision Making Jayde Hebert MD documented in this encounterSt. [facility]06-27-2022 Miscellaneous Notes* Telephone Encounter - Juliet Cuevas RN - 09/10/2021 4:58 PM EDT Appointment given. Juliet Cuevas RN * Telephone Encounter - Jayde Hebert MD - 09/10/2021 4:49 PM EDT I am just confused why it is continuing so much> Yes, I think we should consider cauterizing it to get it to stop. I can try to do it this week for her, would be willing to try to work her in tomorrow. Jayde Hebert MD * Telephone Encounter - Juliet Cuevas RN - 09/10/2021 3:57 PM EDT Daughter called back. Coumadin was restarted on 08/30. Bleeding became heavy on 09/06 with clots so the daughter had her stop it. Today her bleeding is very little. Not concerning at this time. They will notify Dr. Iraheta that she stopped her Coumadin, as well. Daughter asking if you think it should be cauterized so that she can resume taking again. Juliet Cuevas RN * Telephone Encounter - Juliet Cuevas RN - 09/10/2021 12:25 PM EDT Spoke with daughter. She is going to call her aunt who is staying with her this week for an update on the bleeding and let us know. Juliet Cuevas RN * Telephone Encounter - Jayde Hebert MD - 09/10/2021 12:03 PM EDT How much bleeding? Enough they are concerned? I can see her and see if we can cauterize it. Urogyn is just fine. Thanks. Jayde Hebert, Juan M Hebert MD * Telephone Encounter - Juliet Cuevas RN - 09/10/2021 11:08 AM EDT Spoke with daughter. She has an appointment with Uro/Hat Measurer, Dr. Hernández on 09/26. Is this ok or would you rather her see urology? Patient started bleeding and passing clots last week once her Coumadin was in the therapeutic level. Stopped it on . Now her vaginal bleeding is only spotting. Juliet Cuevas RN * Telephone Encounter - Jayde Hebert MD - 09/10/2021 10:41 AM EDT Please let her/daughter know that her urine culture is still + for e. coli after she finished the macrobid. I do not think that the macrobid is going to eliminate it. I would recommend that she get aconsult (can be virtual) w/ urology or with infectious disease to see what they think she should beon as I am concerned about this. For now I will give her some more macrobid to maybe help to decrease the chances of getting pylenephritis until we get an opinion from them. Remain on macrobid until sees ID or urology. Jayde Hebert MD documented in this encounterSt. Francis Hospital06-24-2022 Miscellaneous Notes* Telephone Encounter - An Ta APRN.CNP - 09/07/2021 8:02 AM EDT Noted. Please let us know if they need anything else from us. Thank you An Ta APRN.CNP * Telephone Encounter - Maria A Khanna RN - 09/06/2021 12:55 PM EDT Sheryl with [facility] called and reports Pt is thinking of coming and living in their Assisted Living facilities. Sent Face sheet and last OV notes to fax # [phone]. documented in this encounterSt. Francis Hospital06-22-2022 History of Present illness Narrative* Cecilio Ibarra, DO - 09/05/2021 12:58 PM EDT Images from the original note were not included. [facility] Luis Miguel Kolb Department of Cardiovascular Medicine Established HPI: Christian Landrum is a 86 year old female with a history of paroxysmal AF (coumadin), rheumaticmitral valve regurgitation, HTN, HLD, STUART, breast cancer, PMR, and OA. She was last seen by me on 12/22/20 where a pharmacologic nuclear stress test was ordered and seen for telephone visit by FISH HATCHERY WORKER 04/19/21. MPI showed no evidence of ischemia or infarction. She was hospitalized in June at [facility] and in July 2021 in [place] both for UTI and fever. She continues on warfarin anticoagulation and has had therapeutic INR levels that have been very good. Her hemoglobins rodríguez ve ranged around 9 0.2 and follows for [...] hemoglobins remained stable and she was started oniron supplementation. ROS: Card: See present history. Pulm: [...] 104/54 Pulse 73 Ht 167.6 cm (5' 6) Wt 77.7 kg (171 lb 3.2 oz) [...] visits. She does have chronic anemia and noobvious bleeding at this time. Her INR fortunately [...] the care of your patient. Please do nothesitate to contact me if there are any questions. Cecilio Ibarra DO, FACC, FCCP, FACOI documented in this encounterSt. Francis Hospital06-22-2022 Miscellaneous Notes* Telephone Encounter - Jerrica Rothman RPh - 09/05/2021 9:09 AM EDT [facility] message sent for INR therapeutic range. documented in this encounterSt. Francis Hospital06-17-2022 Miscellaneous Notes* Telephone Encounter - Kamila Bentley LPN - 08/31/2021 7:49 AM EDT Please see pt's mychart message and pended order below. Please advise. Kamila Bentley LPN documented in this encounterSt. Francis Hospital06-16-2022 History of Present illness Narrative* Jayde Hebert MD - 08/30/2021 1:13 PM EDT Christian Landrum is a 86 year old [...] orange vaginal discharge. However she has continued tohave urgency, going eery 30 min yesterday and [...] Menarche: 12; Age at 1st : 26; Hat Measurer History LMP: Postmenopausal Age at Menarche: Age at First : Age at Menopause: Hat Measurer History Comments: Sexual Activity: Not Currently; Male [...] mass on liver PMR (polymyalgia rheumatica) ([facility]) 2012 Pure hypercholesterolemia Snoring Squamous cell cancer [...] Age of Onset other ( age 60 [place]) Mother hypertension and TB other (pancreatic cancer) [...] Take 1 tablet by mouth once daily. acqgowr-vuidijuds-qsdwjgb D3 500 mg-5 mcg (200 unit) per [...] once daily. Take on empty stomach. ForThyroid escitalopram oxalate (LEXAPRO) 10 mg tablet Take [...] Restart macrobid. Consult urogyn, may need more imagingor cystoscopy. Vaginal bleeding resolved. Ok to restart coumadin> Pathology negative, no uterine pathology of concern noted. Medical Decision Making Jayde Hebert MD documented in this encounterSt. Francis Hospital06-14-2022 History of Present illness Narrative* Jayde Hebert MD - 08/28/2021 12:10 PM EDT Christian Landrum is a 86 year old female who presents for problem visit for vaginal bleeding. S/p hysteroscp[u D&C on 08/23/21 for PMB nad suspected polyp. No discrete polyp. Pathology pending. Hashad waxing and waning vaginal bleeding since the [...] is not having a lot of pain, justsome cramping with the bleeding. She is passing clots that are which she reports to be about half the size of her hand. OB History T3 L3 SAB0 IAB0 Ectopic0 Multiple0 Live Births0 Comment: Menarche 12 fftp 26. natural menopause 50+ Menarche: 12; Age at 1st : Hat Measurer History LMP: Postmenopausal Age at Menarche: Age at First : Age at Menopause: Hat Measurer History Comments: Sexual Activity: Not Currently; Male [...] Age of Onset other ( age 60 [place]) Mother hypertension and TB other (pancreatic cancer) [...] Take 1 tablet by mouth once daily. ahdrqcu-kwnpdnclg-sssdayd D3 500 mg-5 mcg (200 unit) per [...] once daily. Take on empty stomach. ForThyroid escitalopram oxalate (LEXAPRO) 10 mg tablet Take [...] external genitalia normal, normal Bartholin's glands, urethra, Eva's glands, no vulvar lesions, good vaginal support, [...] wiped the blood away several times and brightred blood appeared at the posterior cervical lip. [...] we need to see her immediately as wedo not want her anemia to acutely worsen. Pathology is pending. Return in 2 to 3 days or as needed for removal of the packing. Hold Coumadin until we are certain that the cervix is again be hemostatic. Patient and her daughter agree with the plan. Medical Decision Making Jayde Hebert MD documented in this encounterSt. Francis Hospital06-12-2022 History of Present illness Narrative* Jayde Hebert MD - 08/26/2021 3:21 PM EDT Patient underwent hysteroscopy D&C at [facility] on 08/23/2021 without complications. She was discharged home with routine instructions and follow-up. Pathology is pending. No discrete polyp visualized. Jayde Hebert MD documented in this encounterSt. Francis Hospital06-08-2022 Miscellaneous Notes* Telephone Encounter - Jerrica Rothman, [facility] - 08/22/2021 10:[address] [facility] Anticoagulation Episode Summary Anticoagulation Care Providers Provider Role Specialty Phone number Galina Iraheta MD [facility] Internal Medicine [phone] Christian Landrum is a 86 year old [...] * Unknown Zestril [Lisinopril] Indication for Warfarin: intermediate frame tender (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 anticoagulants Paroxysmal atrial fibrillation [...] Pharmacy Anticoagulation Clinic Pharmacy Anticoagulation Clinic Pager: [phone] . documented in this encounterSt. Francis Hospital06-03-2022 Miscellaneous Notes* Telephone Encounter - Corinna Arenas, [facility] - 08/17/2021 10:[address] [facility] Anticoagulation Episode Summary Anticoagulation Care Providers Provider Role Specialty Phone number Galina Iraheta MD Responsible Internal Medicine [phone] Christian Landrum is a 86 year old [...] * Unknown Zestril [Lisinopril] Indication for Warfarin: intermediate frame tender (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 anticoagulants Paroxysmal atrial fibrillation (hcc) Anticoagulation Episode Summary Current INR goal: 2.0-3.0 Assessment: INR result of 2.6 is therapeutic Plan: Called and spoke to patient/caregiver Advised patient to continue current weekly dose Next home INR check scheduled on 08/22/2021 Patient is having vaginal bleeding, is scheduled for d&c with polypectomy on 08/23; was advised by REMEDIAL PROJECT MANAGER that warfarin isn't usually held for the procedure Advised to test INR the day prior to ensure it isn't elevated Patient verbalizes understanding of the plan. Patient denies need for refills. Corinna Arenas RPh Clinical Pharmacist, Pharmacy Anticoagulation Clinic Pharmacy Anticoagulation Clinic Pager: [phone] . documented in this encounterSt. Francis Hospital06-02-2022 Miscellaneous Notes* Telephone Encounter - Madyson Agosto LPN - 08/16/2021 1:44 PM EDT Patient is going to check with her daughter to see if she will be able to have her surgery on 08/23/2021 * Telephone Encounter - Juliet Cuevas RN - 08/16/2021 11:32 AM EDT Patient notified. 2 week Post Op scheduled. Juliet Cuevas RN * Telephone Encounter - Madyson Agosto LPN - 08/16/2021 10:52 AM EDT Left message to call office. Patient is scheduled at [facility] for surgery on 08/29/2021 @ 7:30 am. [facility] will call with arrival time.Phone PAT is 08/23/2021 8:00 am. Patient needs 2 week post-op documented in this encounterSt. Francis Hospital06-01-2022 History and physical note * Jayde Hebert MD - 08/15/2021 5:06 PM EDT Pre-Op History and Physical HPI: The patient is a 86 year old female presenting for pre-operative visit. She is scheduled for Hysteroscopy D&C, polyp-ectomy for PMB, thickened endometrium, endometrialpolyp on 08/23/21. Procedure discussed along with risks, [...] 1 tablet by mouth once daily. 90 tablet3 cmggbtw-ytghlebxi-kumkddp D3 500 mg-5 mcg (200 unit) per [...] on empty stomach. ForThyroid 90 tablet 3 escitalopram oxalate (LEXAPRO) 10 [...] as directed for [address] 2 tabletsvaginally qhs before the procedure 2 tablet 0 nitrofurantoin monohydrate and macrocrystal (MACROBID) 100 mg capsule Take 1 capsule by mouth twicedaily for 10 days. 20 capsule 0 No [...] Age of Onset other ( age 60 [place]) Mother hypertension and TB other (pancreatic cancer) [...] involved for the planned hysteroscopy D&C w/ polypresection were reviewed with the patient. Her questions were answered to her satisfaction and she desires to proceed. Consent was signed. I reviewed with her postop instructions and expectations. I have reviewed and updated past medical and surgical history, medications and allergies Jayde Hebert M.D. documented in this encounterSt. 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 xbbyncc-mngjvqomp-ogwszqr D3 500 mg-5 mcg (200 unit) per [...] once daily. Take on empty stomach. ForThyroid escitalopram oxalate (LEXAPRO) 10 mg tablet Take [...] were discussed with patient, her questions were answeredto her satisfaction she desires to proceed. Changed antibiotics for UTI to Levaquin. Discussed withthe patient and her daughter that the susceptible antibiotics on the list were intravenous. Encouraged to f/u w/ urology for this. Change to macrobid as only PO susceptible one but not sure this is satisfactory intermediate frame tender. Use vaginal estrogne 2-3 times a week Patient is likely going to need a cholecystectomy but her surgeon wanted her to have the hysteroscopy D&C and the pathology returned on that before she proceeded with the more invasive cholecystectomy. Medical Decision Making Jayde Hebert MD documented in this encounterSt. Francis Hospital06-01-2022 Miscellaneous Notes* Telephone Encounter - An Ta APRN.CNP - 08/15/2021 9:01 AM EDT Patient admitted to hospital. Nitrofurantion discontinued. An Ta APRN.CNP documented in this encounterSt. Francis Hospital05-31-2022 Miscellaneous Notes* Telephone Encounter - Nury Andres RPh - 08/14/2021 4:[address] [facility] Anticoagulation Episode Summary Anticoagulation Care Providers Provider Role Specialty Phone number Galina Iraheta MD [facility] Internal Medicine [phone] Christian Landrum is a 86 year old [...] Pharmacy Anticoagulation Clinic Pharmacy Anticoagulation Clinic Pager: [phone] . documented in this encounterSt. Francis Hospital05-29-2022 Miscellaneous Notes* Telephone Encounter - Daysi Riddle RN - 08/12/2021 12:11 PM EDT Reason for Call: Daughter calling stating that mother is having difficulty urinating and feels as if she cannot empty her bladder, is passing pea sized clots and having blood in her urine, and on Coumadin. Patient had a temp of 100.4F 08/11 night but states no fever now. Culture has been collected but symptoms are worsening. Outcome: Daughter will drive her mother to [facility]. Reason for Disposition [1] Unable to urinate (or only a few drops) > 4 hours AND [2] bladder feels very full (e.g., palpable bladder or strong urge to urinate) Protocols used: URINE - BLOOD IN-ADULT- documented in this encounterSt. Francis Hospital05-27-2022 Miscellaneous Notes* Telephone Encounter - Maria A Khanna RN - 08/10/2021 4:22 PM EDT Pt called and is notified of providers message and instructions. Pt voices understanding, states the next time she can get a ride in she will get it done. Maria A Khanna RN * Telephone Encounter - An Ta APRN.CNP - 08/10/2021 4:15 PM EDT Please call patient and relay below information. Urine culture reordered. Thank you An Ta APRN.CNP * Telephone Encounter - Yoly Clayton Ma - 08/10/2021 4:12 PM EDT Spoke with Pam in lab who spoke with [facility] lab,[facility] was having issues with those orders site wide and orders were cancelled and samples threw out. Patient will need to have new sample collected if still having symptoms. * Telephone Encounter - Yoly Clayton Ma - 08/10/2021 4:12 PM EDT ----- Message from nA Ta APRN.CNP sent at 08/10/2021 3:45 PM EDT ----- Please call lab to clarify culture. Was showing in process and now shows as canceled. Thank you An Ta APRN.CNP documented in this encounterSt. Francis Hospital05-25-2022 History of Present illness Narrative* An Ta APRN.CNP - 08/08/2021 2:12 PM EDT CC: Patient presents with: Recheck: Hosp follow up, HPI Christian Landrum is a 86 year old female who presents today for hospital follow- up with daughter who drove her to appointment. Facility: [facility] Date of visit: 07/06/21 - 07/12/21 Reason [...] evaluate removing gallstones and do a colonoscopy afteruterine polyp is addressed and she sees her hospitality director for her cirrhosis. Post discharge she spent 2 weks for OT and PT at [facility] where is currently on hospice. Now [...] Take 1 tablet by mouth once daily. pgjrfqj-zjwffobgz-gatutqv D3 500 mg-5 mcg (200 unit) per tablet Take 1 tablet by mouth once daily. fluticasone (FLONASE) 50 mcg/actuation nasal spray Use 2 Sprays in each nostril once daily. MEDICAL SUPPLY Zippered compression stockings.- 1 pair. levothyroxine (LEVOXYL) 25 mcg tablet Take 1 tablet by mouth once daily. Take on empty stomach. ForThyroid escitalopram oxalate (LEXAPRO) 10 mg tablet Take [...] Age of Onset other ( age 60 [place]) Mother hypertension and TB other (pancreatic cancer) [...] - will send for further evaluation, if cultureis positive treat with appropriate antibiotic - URINALYSIS, [...] breath, yellowing of skin, or any other urgentconditions. 5. Biliary colic - ICD9: 574.20, ICD10: K80.50 As above I spent 30 minutes in the visit, with more than 50% of the total fery-zy-bwkb time of the visit in counseling / coordination of care. Prescription instructions reviewed with patient as applicable. Potential red flag symptoms discussed with the patient. Reviewed appropriate action plan to take if red flag symptoms occur. Patient agreeable to treatment plan. An Ta APRN.CNP documented in this encounterSt. Francis Hospital05-17-2022 Miscellaneous Notes* Telephone Encounter - Nury Andres RPh - 07/31/2021 4:[address] [facility] Anticoagulation Episode Summary Anticoagulation Care Providers Provider Role Specialty Phone number Galina Iraheta MD [facility] Internal Medicine [phone] Christian Landrum is a 86 year old [...] discharge from SNF on 07/27 on 2mg Tu/1mg all other days Next home INR check scheduled on 08/14/2021 Patient verbalizes understanding of the plan. Nury Andres RPh Clinical Pharmacist, Pharmacy Anticoagulation Clinic Pharmacy Anticoagulation Clinic Pager: [phone] . documented in this encounterSt. Francis Hospital05-13-2022 Miscellaneous Notes* Telephone Encounter - Maria A Khanna RN - 07/27/2021 12:59 PM EDT [facility] called and is notified of providers message. She voices understanding. Maira A Khanna RN * Telephone Encounter - An Ta APRN.CNP - 07/27/2021 12:41 PM EDT Provider agrees to follow. Thank you An Ta APRN.INGE * Telephone Encounter - Violet Rockwell RN - 07/27/2021 10:59 AM EDT Ricky Brown, [facility], reports patient is being discharged from [facility] tomorrow with orders for PT & OT. Asking if pcp agrees to follow? Asking for reply today, as they plan to see patient on Friday. [phone] documented in this encounterSt. Francis Hospital05-10-2022 Miscellaneous Notes* Telephone Encounter - Jocy Scehrer - 07/24/2021 2:04 PM EDT LVM with patient and sent msg. Appointment with Shalom on 07/27 needs rescheduled first available. Appt has been cancelled. documented in this encounterSt. Francis Hospital05-06-2022 Miscellaneous Notes* Telephone Encounter - Juliet Cuevas RN - 07/20/2021 1:32 PM EDT Left detailed message on identified voicemail. Juliet Cuevas RN * Telephone Encounter - Jayde Hebert MD - 07/20/2021 1:22 PM EDT It would be ok to start vaginal estrogen. This may help w/ UTI prevention as well. Jayde Hebert MD * Telephone Encounter - Inge Salter RN - 07/18/2021 10:04 AM EDT Patient calling with update. She was originally scheduled 07/10/21 to discuss D&C, polypectomy more, but she ended up at [facility] last month for a week d/t multiple medical problems one of thema UTI. Calling today because she is starting with urinary frequency again and worsening vaginal dryness. She has not used estrace cream since 02/2021 sometime. Offered appointment today, but [facility]. Advised to speak to nurse [...] advise. Inge Salter RN documented in this encounterSt. Francis Hospital05-04-2022 Miscellaneous Notes* Telephone Encounter - Vania Guillory RN - 07/18/2021 10:16 AM EDT Patient placed on [facility] LTC list for follow up. Letty Guillory RN Pharmacy Anticoagulation Clinic * Telephone Encounter - Marlin Ansari RPh - 07/18/2021 9:54 AM EDT INR was due today. Reviewed notes and found pt was recently hospitalized and discharged to SNF. Will forward to PAC team to f/u. documented in this encounterSt. Francis Hospital04-22-2022 History of Past illness Narrative* Problem Noted Date Resolved Date Dysuria 07/06/2021 07/08/2021 Obesity, Class I, BMI 30-34.9 01/12/2021 GI bleed 01/12/2021 01/14/2021 Acute blood loss anemia 01/12/2021 01/15/20 21 LLQ pain 09/05/2017 04/09/2021 Overview: Added automatically from request for surgery [id number] 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, estrogen receptor positive 06/03/2017 07/06/2021 Personal history of breast cancer 12/18/2016 04/09/2021 Overview: Added automatically from request for surgery [id number] Permanent atrial fibrillation 12/26/2015 Diverticulitis of large [...] of this encounter (statuses as of 07/11/2021) [facility] of Past illness Narrative* Problem Noted Date Resolved Date Dysuria 07/06/2021 07/08/2021 Obesity, Class I, BMI 30-34.9 01/12/2021 GI bleed 01/12/2021 01/14/2021 Acute blood loss anemia 01/12/2021 01/15/20 21 LLQ pain 09/05/2017 04/09/2021 Overview: Added automatically from request for surgery [id number] 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, estrogen receptor positive 06/03/2017 07/06/2021 Personal history of breast cancer 12/18/2016 04/09/2021 Overview: Added automatically from request for surgery [id number] Permanent atrial fibrillation 12/26/2015 Diverticulitis of large [...] of this encounter (statuses as of 07/16/2021) [facility] of Past illness Narrative* Problem Noted Date Resolved Date Dysuria 07/06/2021 07/08/2021 Obesity, Class I, BMI 30-34.9 01/12/2021 GI bleed 01/12/2021 01/14/2021 Acute blood loss anemia 01/12/2021 01/15/20 21 LLQ pain 09/05/2017 04/09/2021 Overview: Added automatically from request for surgery [id number] 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, estrogen receptor positive 06/03/2017 07/06/2021 Personal history of breast cancer 12/18/2016 04/09/2021 Overview: Added automatically from request for surgery [id number] Permanent atrial fibrillation 12/26/2015 Diverticulitis of large [...] of this encounter (statuses as of 07/18/2021) [facility]04[facility] History of Past illness Narrative* Problem Noted Date Resolved Date Dysuria 07/06/2021 07/08/2021 Obesity, Class I, BMI 30-34.9 01/12/2021 GI bleed 01/12/2021 01/14/2021 Acute blood loss anemia 01/12/2021 01/15/20 21 LLQ pain 09/05/2017 04/09/2021 Overview: Added automatically from request for surgery [id number] 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, estrogen receptor positive 06/03/2017 07/06/2021 Personal history of breast cancer 12/18/2016 04/09/2021 Overview: Added automatically from request for surgery [id number] Permanent atrial fibrillation 12/26/2015 Diverticulitis of large [...] of this encounter (statuses as of 07/20/2021) [facility] History of Past illness Narrative* Problem Noted Date Resolved Date Dysuria 07/06/2021 07/08/2021 Obesity, Class I, BMI 30-34.9 01/12/2021 GI bleed 01/12/2021 01/14/2021 Acute blood loss anemia 01/12/2021 01/15/20 21 LLQ pain 09/05/2017 04/09/2021 Overview: Added automatically from request for surgery [id number] 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, estrogen receptor positive 06/03/2017 07/06/2021 Personal history of breast cancer 12/18/2016 04/09/2021 Overview: Added automatically from request for surgery [id number] Permanent atrial fibrillation 12/26/2015 Diverticulitis of large [...] of this encounter (statuses as of 07/24/2021) [facility] History of Past illness Narrative* Problem Noted Date Resolved Date Dysuria 07/06/2021 07/08/2021 Obesity, Class I, BMI 30-34.9 01/12/2021 GI bleed 01/12/2021 01/14/2021 Acute blood loss anemia 01/12/2021 01/15/20 21 LLQ pain 09/05/2017 04/09/2021 Overview: Added automatically from request for surgery [id number] 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, estrogen receptor positive 06/03/2017 07/06/2021 Personal history of breast cancer 12/18/2016 04/09/2021 Overview: Added automatically from request for surgery [id number] Permanent atrial fibrillation 12/26/2015 Diverticulitis of large [...] of this encounter (statuses as of 07/24/2021) [facility] History of Past illness Narrative* Problem Noted Date Resolved Date Dysuria 07/06/2021 07/08/2021 Obesity, Class I, BMI 30-34.9 01/12/2021 GI bleed 01/12/2021 01/14/2021 Acute blood loss anemia 01/12/2021 01/15/20 21 LLQ pain 09/05/2017 04/09/2021 Overview: Added automatically from request for surgery [id number] 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, estrogen receptor positive 06/03/2017 07/06/2021 Personal history of breast cancer 12/18/2016 04/09/2021 Overview: Added automatically from request for surgery [id number] Permanent atrial fibrillation 12/26/2015 Diverticulitis of large [...] of this encounter (statuses as of 07/27/2021) [facility] History of Past illness Narrative* Problem Noted Date Resolved Date Dysuria 07/06/2021 07/08/2021 Obesity, Class I, BMI 30-34.9 01/12/2021 GI bleed 01/12/2021 01/14/2021 Acute blood loss anemia 01/12/2021 01/15/20 21 LLQ pain 09/05/2017 04/09/2021 Overview: Added automatically from request for surgery [id number] 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, estrogen receptor positive 06/03/2017 07/06/2021 Personal history of breast cancer 12/18/2016 04/09/2021 Overview: Added automatically from request for surgery [id number] Permanent atrial fibrillation 12/26/2015 Diverticulitis of large [...] of this encounter (statuses as of 07/30/2021) [facility] History of Past illness Narrative* Problem Noted Date Resolved Date Dysuria 07/06/2021 07/08/2021 Obesity, Class I, BMI 30-34.9 01/12/2021 GI bleed 01/12/2021 01/14/2021 Acute blood loss anemia 01/12/2021 01/15/20 21 LLQ pain 09/05/2017 04/09/2021 Overview: Added automatically from request for surgery [id number] 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, estrogen receptor positive 06/03/2017 07/06/2021 Personal history of breast cancer 12/18/2016 04/09/2021 Overview: Added automatically from request for surgery [id number] Permanent atrial fibrillation 12/26/2015 Diverticulitis of large [...] of this encounter (statuses as of 07/31/2021) [facility] History of Past illness Narrative* Problem Noted Date Resolved Date Dysuria 07/06/2021 07/08/2021 Obesity, Class I, BMI 30-34.9 01/12/2021 GI bleed 01/12/2021 01/14/2021 Acute blood loss anemia 01/12/2021 01/15/20 21 LLQ pain 09/05/2017 04/09/2021 Overview: Added automatically from request for surgery [id number] 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, estrogen receptor positive 06/03/2017 07/06/2021 Personal history of breast cancer 12/18/2016 04/09/2021 Overview: Added automatically from request for surgery [id number] Permanent atrial fibrillation 12/26/2015 Diverticulitis of large [...] of this encounter (statuses as of 08/08/2021) [facility] History of Past illness Narrative* Problem Noted Date Resolved Date Dysuria 07/06/2021 07/08/2021 Obesity, Class I, BMI 30-34.9 01/12/2021 GI bleed 01/12/2021 01/14/2021 Acute blood loss anemia 01/12/2021 01/15/20 21 LLQ pain 09/05/2017 04/09/2021 Overview: Added automatically from request for surgery [id number] 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, estrogen receptor positive 06/03/2017 07/06/2021 Personal history of breast cancer 12/18/2016 04/09/2021 Overview: Added automatically from request for surgery [id number] Permanent atrial fibrillation 12/26/2015 Diverticulitis of large [...] of this encounter (statuses as of 08/10/2021) [facility] History of Past illness Narrative* Problem Noted Date Resolved Date Dysuria 07/06/2021 07/08/2021 Obesity, Class I, BMI 30-34.9 01/12/2021 GI bleed 01/12/2021 01/14/2021 Acute blood loss anemia 01/12/2021 01/15/20 21 LLQ pain 09/05/2017 04/09/2021 Overview: Added automatically from request for surgery [id number] 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, estrogen receptor positive 06/03/2017 07/06/2021 Personal history of breast cancer 12/18/2016 04/09/2021 Overview: Added automatically from request for surgery [id number] Permanent atrial fibrillation 12/26/2015 Diverticulitis of large [...] of this encounter (statuses as of 08/10/2021) 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 Merino on recommendation of Dr. Angeline ntah documented as of this encounter (statuses as of 10/02/2021) 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 Merion on recommendation of Dr. Angeline nath Last Assessment & Plan: She is on asacol for the past few months, it was started by Dr. Merino on recommendation of Dr. Angeline nath documented as of this encounter (statuses as of 10/15/2021) 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 History of Past illness Narrative* Problem Noted Date Resolved Date Dysuria 07/06/2021 07/08/2021 Obesity, Class I, BMI 30-34.9 01/12/2021 GI bleed 01/12/2021 01/14/2021 Acute blood loss anemia 01/12/2021 01/15/20 21 LLQ pain 09/05/2017 04/09/2021 Overview: Added automatically from request for surgery [id number] Malignant neoplasm of lower- inner quadrant of right breast of female, estrogen receptor positive 06/03/2017 07/06/2021 Personal history of breast cancer 12/18/2016 04/09/2021 Overview: Added automatically from request for surgery [id number] Permanent atrial fibrillation 12/26/2015 Diverticulitis of large [...] of this encounter (statuses as of 11/13/2021) [facility] History of Past illness Narrative* Problem Noted Date Resolved Date Dysuria 07/06/2021 07/08/2021 Obesity, Class I, BMI 30-34.9 01/12/2021 GI bleed 01/12/2021 01/14/2021 Acute blood loss anemia 01/12/2021 01/15/20 21 LLQ pain 09/05/2017 04/09/2021 Overview: Added automatically from request for surgery [id number] Malignant neoplasm of lower- inner quadrant of right breast of female, estrogen receptor positive 06/03/2017 07/06/2021 Personal history of breast cancer 12/18/2016 04/09/2021 Overview: Added automatically from request for surgery [id number] Permanent atrial fibrillation 12/26/2015 Diverticulitis of large [...] of this encounter (statuses as of 12/11/2021) [facility] History of Past illness Narrative* Problem Noted Date Resolved Date Dysuria 07/06/2021 07/08/2021 Obesity, Class I, BMI 30-34.9 01/12/2021 GI bleed 01/12/2021 01/14/2021 Acute blood loss anemia 01/12/2021 01/15/20 LLQ pain 09/05/2017 04/09/2021 Overview: Added automatically from request for surgery [id number] Malignant neoplasm of lower- inner quadrant of right breast of female, estrogen receptor positive 06/03/2017 07/06/2021 Personal history of breast cancer 12/18/2016 04/09/2021 Overview: Added automatically from request for surgery [id number] Permanent atrial fibrillation 12/26/2015 Diverticulitis of large [...] of ovary 04/14/2013 Solar Lentigines 05/18/2009 04/14/2013 Crolwey Angioma//Capillary Angioma 05/18/2009 04/14/2013 Melanocytic nevus of [...] of this encounter (statuses as of 12/25/2021) [facility] History of Past illness Narrative* Problem Noted Date Resolved Date Dysuria 07/06/2021 07/08/2021 Obesity, Class I, BMI 30-34.9 01/12/2021 GI bleed 01/12/2021 01/14/2021 Acute blood loss anemia 01/12/2021 01/15/20 LLQ pain 09/05/2017 04/09/2021 Overview: Added automatically from request for surgery [id number] Malignant neoplasm of lower- inner quadrant of right breast of female, estrogen receptor positive 06/03/2017 07/06/2021 Personal history of breast cancer 12/18/2016 04/09/2021 Overview: Added automatically from request for surgery [id number] Permanent atrial fibrillation 12/26/2015 Diverticulitis of large [...] of this encounter (statuses as of 01/02/2022) [facility] History of Past illness Narrative* Problem Noted Date Resolved Date Dysuria 07/06/2021 07/08/2021 Obesity, Class I, BMI 30-34.9 01/12/2021 GI bleed 01/12/2021 01/14/2021 Acute blood loss anemia 01/12/2021 01/15/20 21 LLQ pain 09/05/2017 04/09/2021 Overview: Added automatically from request for surgery [id number] Malignant neoplasm of lower- inner quadrant of right breast of female, estrogen receptor positive 06/03/2017 07/06/2021 Personal history of breast cancer 12/18/2016 04/09/2021 Overview: Added automatically from request for surgery [id number] Permanent atrial fibrillation 12/26/2015 Diverticulitis of large [...] of this encounter (statuses as of 01/08/2022) [facility] History of Past illness Narrative* Problem Noted Date Resolved Date Dysuria 07/06/2021 07/08/2021 Obesity, Class I, BMI 30-34.9 01/12/2021 GI bleed 01/12/2021 01/14/2021 Acute blood loss anemia 01/12/2021 01/15/20 LLQ pain 09/05/2017 04/09/2021 Overview: Added automatically from request for surgery [id number] Malignant neoplasm of lower- inner quadrant of right breast of female, estrogen receptor positive 06/03/2017 07/06/2021 Personal history of breast cancer 12/18/2016 04/09/2021 Overview: Added automatically from request for surgery [id number] Permanent atrial fibrillation 12/26/2015 Diverticulitis of large [...] of this encounter (statuses as of 01/21/2022) [facility] History of Past illness Narrative* Problem Noted Date Resolved Date Dysuria 07/06/2021 07/08/2021 Obesity, Class I, BMI 30-34.9 01/12/2021 GI bleed 01/12/2021 01/14/2021 Acute blood loss anemia 01/12/2021 01/15/20 21 LLQ pain 09/05/2017 04/09/2021 Overview: Added automatically from request for surgery [id number] Malignant neoplasm of lower- inner quadrant of right breast of female, estrogen receptor positive 06/03/2017 07/06/2021 Personal history of breast cancer 12/18/2016 04/09/2021 Overview: Added automatically from request for surgery [id number] Permanent atrial fibrillation 12/26/2015 Diverticulitis of large [...] Other diseases of pharynx, not elsewhere classif ied(407.29) 04/14/2013 Unspecified hemorrhoids without mention of compl [...] of this encounter (statuses as of 02/05/2022) [facility] History of Past illness Narrative* Problem Noted Date Resolved Date Dysuria 07/06/2021 07/08/2021 Obesity, Class I, BMI 30-34.9 01/12/2021 GI bleed 01/12/2021 01/14/2021 Acute blood loss anemia 01/12/2021 01/15/20 21 LLQ pain 09/05/2017 04/09/2021 Overview: Added automatically from request for surgery [id number] Malignant neoplasm of lower- inner quadrant of right breast of female, estrogen receptor positive 06/03/2017 07/06/2021 Personal history of breast cancer 12/18/2016 04/09/2021 Overview: Added automatically from request for surgery [id number] Permanent atrial fibrillation 12/26/2015 Diverticulitis of large [...] of this encounter (statuses as of 03/09/2022) [facility] History of Past illness Narrative* Problem Noted Date Resolved Date Dysuria 07/06/2021 07/08/2021 Obesity, Class I, BMI 30-34.9 01/12/2021 GI bleed 01/12/2021 01/14/2021 Acute blood loss anemia 01/12/2021 01/15/20 LLQ pain 09/05/2017 04/09/2021 Overview: Added automatically from request for surgery [id number] Malignant neoplasm of lower- inner quadrant of right breast of female, estrogen receptor positive 06/03/2017 07/06/2021 Personal history of breast cancer 12/18/2016 04/09/2021 Overview: Added automatically from request for surgery [id number] Permanent atrial fibrillation 12/26/2015 Diverticulitis of large [...] of this encounter (statuses as of 03/17/2022) [facility] History of Past illness Narrative* Problem Noted Date Resolved Date Dysuria 07/06/2021 07/08/2021 Obesity, Class I, BMI 30-34.9 01/12/2021 GI bleed 01/12/2021 01/14/2021 Acute blood loss anemia 01/12/2021 01/15/20 21 LLQ pain 09/05/2017 04/09/2021 Overview: Added automatically from request for surgery [id number] Malignant neoplasm of lower- inner quadrant of right breast of female, estrogen receptor positive 06/03/2017 07/06/2021 Personal history of breast cancer 12/18/2016 04/09/2021 Overview: Added automatically from request for surgery [id number] Permanent atrial fibrillation 12/26/2015 Diverticulitis of large [...] of this encounter (statuses as of 03/20/2022) [facility] History of Past illness Narrative* Problem Noted Date Resolved Date Dysuria 07/06/2021 07/08/2021 Obesity, Class I, BMI 30-34.9 01/12/2021 GI bleed 01/12/2021 01/14/2021 Acute blood loss anemia 01/12/2021 01/15/20 21 LLQ pain 09/05/2017 04/09/2021 Overview: Added automatically from request for surgery [id number] Malignant neoplasm of lower- inner quadrant of right breast of female, estrogen receptor positive 06/03/2017 07/06/2021 Personal history of breast cancer 12/18/2016 04/09/2021 Overview: Added automatically from request for surgery [id number] Permanent atrial fibrillation 12/26/2015 Diverticulitis of large [...] of this encounter (statuses as of 03/23/2022) [facility] History of Past illness Narrative* Problem Noted Date Resolved Date Dysuria 07/06/2021 07/08/2021 Obesity, Class I, BMI 30-34.9 01/12/2021 GI bleed 01/12/2021 01/14/2021 Acute blood loss anemia 01/12/2021 01/15/20 21 LLQ pain 09/05/2017 04/09/2021 Overview: Added automatically from request for surgery [id number] Malignant neoplasm of lower- inner quadrant of right breast of female, estrogen receptor positive 06/03/2017 07/06/2021 Personal history of breast cancer 12/18/2016 04/09/2021 Overview: Added automatically from request for surgery [id number] Permanent atrial fibrillation 12/26/2015 Diverticulitis of large [...] of this encounter (statuses as of 03/23/2022) [facility] History of Past illness Narrative* Problem Noted Date Resolved Date Dysuria 07/06/2021 07/08/2021 Obesity, Class I, BMI 30-34.9 01/12/2021 GI bleed 01/12/2021 01/14/2021 Acute blood loss anemia 01/12/2021 01/15/20 21 LLQ pain 09/05/2017 04/09/2021 Overview: Added automatically from request for surgery [id number] Malignant neoplasm of lower- inner quadrant of right breast of female, estrogen receptor positive 06/03/2017 07/06/2021 Personal history of breast cancer 12/18/2016 04/09/2021 Overview: Added automatically from request for surgery [id number] Permanent atrial fibrillation 12/26/2015 Diverticulitis of large [...] of this encounter (statuses as of 03/25/2022) [facility] History of Past illness Narrative* Problem Noted Date Resolved Date Dysuria 07/06/2021 07/08/2021 Obesity, Class I, BMI 30-34.9 01/12/2021 GI bleed 01/12/2021 01/14/2021 Acute blood loss anemia 01/12/2021 01/15/20 21 LLQ pain 09/05/2017 04/09/2021 Overview: Added automatically from request for surgery [id number] Malignant neoplasm of lower- inner quadrant of right breast of female, estrogen receptor positive 06/03/2017 07/06/2021 Personal history of breast cancer 12/18/2016 04/09/2021 Overview: Added automatically from request for surgery [id number] Permanent atrial fibrillation 12/26/2015 Diverticulitis of large [...] of this encounter (statuses as of 04/08/2022) [facility] History of Past illness Narrative* Problem Noted Date Resolved Date Dysuria 07/06/2021 07/08/2021 Obesity, Class I, BMI 30-34.9 01/12/2021 GI bleed 01/12/2021 01/14/2021 Acute blood loss anemia 01/12/2021 01/15/20 LLQ pain 09/05/2017 04/09/2021 Overview: Added automatically from request for surgery [id number] Malignant neoplasm of lower- inner quadrant of right breast of female, estrogen receptor positive 06/03/2017 07/06/2021 Personal history of breast cancer 12/18/2016 04/09/2021 Overview: Added automatically from request for surgery [id number] Permanent atrial fibrillation 12/26/2015 Diverticulitis of large [...] of this encounter (statuses as of 04/10/2022) [facility] History of Past illness Narrative* Problem Noted Date Resolved Date Dysuria 07/06/2021 07/08/2021 Obesity, Class I, BMI 30-34.9 01/12/2021 GI bleed 01/12/2021 01/14/2021 Acute blood loss anemia 01/12/2021 01/15/20 LLQ pain 09/05/2017 04/09/2021 Overview: Added automatically from request for surgery [id number] Malignant neoplasm of lower- inner quadrant of right breast of female, estrogen receptor positive 06/03/2017 07/06/2021 Personal history of breast cancer 12/18/2016 04/09/2021 Overview: Added automatically from request for surgery [id number] Permanent atrial fibrillation 12/26/2015 Diverticulitis of large [...] few months, it was started by Dr. Merion on recommendation of Dr. Angeline nath Last Assessment & Plan: She is on asacol for the past few months, it was started by Dr. Merino on recommendation of Dr. Angeline nath documented as of this encounter (statuses as of 04/12/2022) [facility] History of Past illness Narrative* Problem Noted Date Resolved Date Dysuria 07/06/2021 07/08/2021 Obesity, Class I, BMI 30-34.9 01/12/2021 GI bleed 01/12/2021 01/14/2021 Acute blood loss anemia 01/12/2021 01/15/20 LLQ pain 09/05/2017 04/09/2021 Overview: Added automatically from request for surgery [id number] Malignant neoplasm of lower- inner quadrant of right breast of female, estrogen receptor positive 06/03/2017 07/06/2021 Personal history of breast cancer 12/18/2016 04/09/2021 Overview: Added automatically from request for surgery [id number] Permanent atrial fibrillation 12/26/2015 Diverticulitis of large [...] of this encounter (statuses as of 04/15/2022) [facility] History of Past illness Narrative* Problem Noted Date Resolved Date Dysuria 07/06/2021 07/08/2021 Obesity, Class I, BMI 30-34.9 01/12/2021 GI bleed 01/12/2021 01/14/2021 Acute blood loss anemia 01/12/2021 01/15/20 LLQ pain 09/05/2017 04/09/2021 Overview: Added automatically from request for surgery [id number] Malignant neoplasm of lower- inner quadrant of right breast of female, estrogen receptor positive 06/03/2017 07/06/2021 Personal history of breast cancer 12/18/2016 04/09/2021 Overview: Added automatically from request for surgery [id number] Permanent atrial fibrillation 12/26/2015 Diverticulitis of large [...] of this encounter (statuses as of 04/16/2022) [facility] History of Past illness Narrative* Problem Noted Date Resolved Date Dysuria 07/06/2021 07/08/2021 Obesity, Class I, BMI 30-34.9 01/12/2021 GI bleed 01/12/2021 01/14/2021 Acute blood loss anemia 01/12/2021 01/15/20 LLQ pain 09/05/2017 04/09/2021 Overview: Added automatically from request for surgery [id number] Malignant neoplasm of lower- inner quadrant of right breast of female, estrogen receptor positive 06/03/2017 07/06/2021 Personal history of breast cancer 12/18/2016 04/09/2021 Overview: Added automatically from request for surgery [id number] Permanent atrial fibrillation 12/26/2015 Diverticulitis of large [...] of this encounter (statuses as of 04/16/2022) [facility] History of Past illness Narrative* Problem Noted Date Resolved Date Dysuria 07/06/2021 07/08/2021 Obesity, Class I, BMI 30-34.9 01/12/2021 GI bleed 01/12/2021 01/14/2021 Acute blood loss anemia 01/12/2021 01/15/20 21 LLQ pain 09/05/2017 04/09/2021 Overview: Added automatically from request for surgery [id number] Malignant neoplasm of lower- inner quadrant of right breast of female, estrogen receptor positive 06/03/2017 07/06/2021 Personal history of breast cancer 12/18/2016 04/09/2021 Overview: Added automatically from request for surgery [id number] Permanent atrial fibrillation 12/26/2015 Diverticulitis of large [...] of this encounter (statuses as of 04/17/2022) [facility] History of Past illness Narrative* Problem Noted Date Resolved Date Dysuria 07/06/2021 07/08/2021 Obesity, Class I, BMI 30-34.9 01/12/2021 GI bleed 01/12/2021 01/14/2021 Acute blood loss anemia 01/12/2021 01/15/20 21 LLQ pain 09/05/2017 04/09/2021 Overview: Added automatically from request for surgery [id number] Malignant neoplasm of lower- inner quadrant of right breast of female, estrogen receptor positive 06/03/2017 07/06/2021 Personal history of breast cancer 12/18/2016 04/09/2021 Overview: Added automatically from request for surgery [id number] Permanent atrial fibrillation 12/26/2015 Diverticulitis of large [...] of this encounter (statuses as of 04/22/2022) [facility] History of Past illness Narrative* Problem Noted Date Resolved Date Dysuria 07/06/2021 07/08/2021 Obesity, Class I, BMI 30-34.9 01/12/2021 GI bleed 01/12/2021 01/14/2021 Acute blood loss anemia 01/12/2021 01/15/20 LLQ pain 09/05/2017 04/09/2021 Overview: Added automatically from request for surgery [id number] Malignant neoplasm of lower- inner quadrant of right breast of female, estrogen receptor positive 06/03/2017 07/06/2021 Personal history of breast cancer 12/18/2016 04/09/2021 Overview: Added automatically from request for surgery [id number] Permanent atrial fibrillation 12/26/2015 Diverticulitis of large [...] of this encounter (statuses as of 05/30/2022) [facility] History of Past illness Narrative* Problem Noted Date Resolved Date Dysuria 07/06/2021 07/08/2021 Obesity, Class I, BMI 30-34.9 01/12/2021 GI bleed 01/12/2021 01/14/2021 Acute blood loss anemia 01/12/2021 01/15/20 21 LLQ pain 09/05/2017 04/09/2021 Overview: Added automatically from request for surgery [id number] Malignant neoplasm of lower- inner quadrant of right breast of female, estrogen receptor positive 06/03/2017 07/06/2021 Personal history of breast cancer 12/18/2016 04/09/2021 Overview: Added automatically from request for surgery [id number] Permanent atrial fibrillation 12/26/2015 Diverticulitis of large [...] of this encounter (statuses as of 06/07/2022) [facility] History of Past illness Narrative* Problem Noted Date Resolved Date Dysuria 07/06/2021 07/08/2021 Obesity, Class I, BMI 30-34.9 01/12/2021 GI bleed 01/12/2021 01/14/2021 Acute blood loss anemia 01/12/2021 01/15/20 21 LLQ pain 09/05/2017 04/09/2021 Overview: Added automatically from request for surgery [id number] Malignant neoplasm of lower- inner quadrant of right breast of female, estrogen receptor positive 06/03/2017 07/06/2021 Personal history of breast cancer 12/18/2016 04/09/2021 Overview: Added automatically from request for surgery [id number] Permanent atrial fibrillation 12/26/2015 Diverticulitis of large [...] of this encounter (statuses as of 06/11/2022) [facility] History of Past illness Narrative* Problem Noted Date Resolved Date Dysuria 07/06/2021 07/08/2021 Obesity, Class I, BMI 30-34.9 01/12/2021 GI bleed 01/12/2021 01/14/2021 Acute blood loss anemia 01/12/2021 01/15/20 21 LLQ pain 09/05/2017 04/09/2021 Overview: Added automatically from request for surgery [id number] Malignant neoplasm of lower- inner quadrant of right breast of female, estrogen receptor positive 06/03/2017 07/06/2021 Personal history of breast cancer 12/18/2016 04/09/2021 Overview: Added automatically from request for surgery [id number] Permanent atrial fibrillation 12/26/2015 Diverticulitis of large [...] of this encounter (statuses as of 06/18/2022) [facility] History of Past illness Narrative* Problem Noted Date Resolved Date Dysuria 07/06/2021 07/08/2021 Obesity, Class I, BMI 30-34.9 01/12/2021 GI bleed 01/12/2021 01/14/2021 Acute blood loss anemia 01/12/2021 01/15/20 LLQ pain 09/05/2017 04/09/2021 Overview: Added automatically from request for surgery [id number] Malignant neoplasm of lower- inner quadrant of right breast of female, estrogen receptor positive 06/03/2017 07/06/2021 Personal history of breast cancer 12/18/2016 04/09/2021 Overview: Added automatically from request for surgery [id number] Permanent atrial fibrillation 12/26/2015 Diverticulitis of large [...] of this encounter (statuses as of 08/29/2022) [facility] History of Past illness Narrative* Problem Noted Date Resolved Date Dysuria 07/06/2021 07/08/2021 Obesity, Class I, BMI 30-34.9 01/12/2021 GI bleed 01/12/2021 01/14/2021 Acute blood loss anemia 01/12/2021 01/15/20 21 LLQ pain 09/05/2017 04/09/2021 Overview: Added automatically from request for surgery [id number] Malignant neoplasm of lower- inner quadrant of right breast of female, estrogen receptor positive 06/03/2017 07/06/2021 Personal history of breast cancer 12/18/2016 04/09/2021 Overview: Added automatically from request for surgery [id number] Permanent atrial fibrillation 12/26/2015 Diverticulitis of large [...] of this encounter (statuses as of 09/05/2022) [facility] History of Past illness Narrative* Problem Noted Date Resolved Date Dysuria 07/06/2021 07/08/2021 Obesity, Class I, BMI 30-34.9 01/12/2021 GI bleed 01/12/2021 01/14/2021 Acute blood loss anemia 01/12/2021 01/15/20 LLQ pain 09/05/2017 04/09/2021 Overview: Added automatically from request for surgery [id number] Malignant neoplasm of lower- inner quadrant of right breast of female, estrogen receptor positive 06/03/2017 07/06/2021 Personal history of breast cancer 12/18/2016 04/09/2021 Overview: Added automatically from request for surgery [id number] Permanent atrial fibrillation 12/26/2015 Diverticulitis of large [...] of this encounter (statuses as of 09/20/2022) [facility] History of Past illness Narrative* Problem Noted Date Diagnosed Date Resolved Date Dysuria 07/06/2021 07/08/2021 Obesity, Class I, BMI 30-34.9 01/12/2021 04/09/2021 GI bleed 01/12/2021 01/14/2021 Acute blood loss anemia 01/12/2021 10/3 03/2020 LLQ pain 09/05/2017 04/09/2021 Overview: Added automatically from request for surgery [id number] Malignant neoplasm of lower- inner quadrant of right breast of female, estrogen receptor positive 06/03/2017 07/06/2021 Personal history of breast cancer 12/18/2016 04/09/2021 Overview: Added automatically from request for surgery [id number] Permanent atrial fibrillation 12/26/2015 07/01/2018 Diverticulitis of [...] of this encounter (statuses as of 09/25/2022) [facility] History of Past illness Narrative* Problem Noted Date Diagnosed Date Resolved Date Dysuria 07/06/2021 07/08/2021 Obesity, Class I, BMI 30-34.9 01/12/2021 04/09/2021 GI bleed 01/12/2021 01/14/2021 Acute blood loss anemia 01/12/202112/17 LLQ pain 09/05/2017 04/09/2021 Overview: Added automatically from request for surgery [id number] Malignant neoplasm of lower- inner quadrant of right breast of female, estrogen receptor positive 06/03/2017 07/06/2021 Personal history of breast cancer 12/18/2016 04/09/2021 Overview: Added automatically from request for surgery [id number] Permanent atrial fibrillation 12/26/2015 07/01/2018 Diverticulitis of [...] of this encounter (statuses as of 10/23/2022) [facility] History of Past illness Narrative* Problem Noted Date Diagnosed Date Resolved Date Dysuria 07/06/2021 07/08/2021 Obesity, Class I, BMI 30-34.9 01/12/2021 04/09/2021 GI bleed 01/12/2021 01/14/2021 Acute blood loss anemia 01/12/202112/17 LLQ pain 09/05/2017 04/09/2021 Overview: Added automatically from request for surgery [id number] Malignant neoplasm of lower- inner quadrant of right breast of female, estrogen receptor positive 06/03/2017 07/06/2021 Personal history of breast cancer 12/18/2016 04/09/2021 Overview: Added automatically from request for surgery [id number] Permanent atrial fibrillation 12/26/2015 07/01/2018 Diverticulitis of [...] of this encounter (statuses as of 11/15/2022) [facility] History of Past illness Narrative* Problem Noted Date Diagnosed Date Resolved Date Dysuria 07/06/2021 07/08/2021 Obesity, Class I, BMI 30-34.9 01/12/2021 04/09/2021 GI bleed 01/12/2021 01/14/2021 Acute blood loss anemia 01/12/202112/17 LLQ pain 09/05/2017 04/09/2021 Overview: Added automatically from request for surgery [id number] Malignant neoplasm of lower- inner quadrant of right breast of female, estrogen receptor positive 06/03/2017 07/06/2021 Personal history of breast cancer 12/18/2016 04/09/2021 Overview: Added automatically from request for surgery [id number] Permanent atrial fibrillation 12/26/2015 07/01/2018 Diverticulitis of [...] of this encounter (statuses as of 11/26/2022) [facility] History of Past illness Narrative* Problem Noted Date Diagnosed Date Resolved Date Dysuria 07/06/2021 07/08/2021 Obesity, Class I, BMI 30-34.9 01/12/2021 04/09/2021 GI bleed 01/12/2021 01/14/2021 Acute blood loss anemia 01/12/202112/17 LLQ pain 09/05/2017 04/09/2021 Overview: Added automatically from request for surgery [id number] Malignant neoplasm of lower- inner quadrant of right breast of female, estrogen receptor positive 06/03/2017 07/06/2021 Personal history of breast cancer 12/18/2016 04/09/2021 Overview: Added automatically from request for surgery [id number] Permanent atrial fibrillation 12/26/2015 07/01/2018 Diverticulitis of [...] of this encounter (statuses as of 11/27/2022) [facility] History of Past illness Narrative* Problem Noted Date Diagnosed Date Resolved Date Dysuria 07/06/2021 07/08/2021 Obesity, Class I, BMI 30-34.9 01/12/2021 04/09/2021 GI bleed 01/12/2021 01/14/2021 Acute blood loss anemia 01/12/202112/17 LLQ pain 09/05/2017 04/09/2021 Overview: Added automatically from request for surgery [id number] Malignant neoplasm of lower- inner quadrant of right breast of female, estrogen receptor positive 06/03/2017 07/06/2021 Personal history of breast cancer 12/18/2016 04/09/2021 Overview: Added automatically from request for surgery [id number] Permanent atrial fibrillation 12/26/2015 07/01/2018 Diverticulitis of [...] of this encounter (statuses as of 12/14/2022) [facility] History of Past illness Narrative* Problem Noted Date Diagnosed Date Resolved Date Dysuria 07/06/2021 07/08/2021 Obesity, Class I, BMI 30-34.9 01/12/2021 04/09/2021 GI bleed 01/12/2021 01/14/2021 Acute blood loss anemia 01/12/202112/17 LLQ pain 09/05/2017 04/09/2021 Overview: Added automatically from request for surgery [id number] Malignant neoplasm of lower- inner quadrant of right breast of female, estrogen receptor positive (HCC) 06/03/2017 07/06/2021 Personal history of breast cancer 12/18/2016 04/09/2021 Overview: Added automatically from request for surgery [id number] Permanent atrial fibrillation 12/26/2015 07/01/2018 Diverticulitis of [...] of this encounter (statuses as of 12/18/2022) [facility] History of Past illness Narrative* Problem Noted Date Diagnosed Date Resolved Date Dysuria 07/06/2021 07/08/2021 Obesity, Class I, BMI 30-34.9 01/12/2021 04/09/2021 GI bleed 01/12/2021 01/14/2021 Acute blood loss anemia 01/12/2021 10/03/2020 LLQ pain 09/05/2017 04/09/2021 Overview: Added automatically from request for surgery [id number] Malignant neoplasm of lower- inner quadrant of right breast of female, estrogen receptor positive (HCC) 06/03/2017 07/06/2021 Personal history of breast cancer 12/18/2016 04/09/2021 Overview: Added automatically from request for surgery [id number] Permanent atrial fibrillation 12/26/2015 07/01/2018 Diverticulitis of [...] of this encounter (statuses as of 12/21/2022) [facility] History of Past illness Narrative* Problem Noted Date Diagnosed Date Resolved Date Dysuria 07/06/2021 07/08/2021 Obesity, Class I, BMI 30-34.9 01/12/2021 04/09/2021 GI bleed 01/12/2021 01/14/2021 Acute blood loss anemia 01/12/2021 10/03/2020 LLQ pain 09/05/2017 04/09/2021 Overview: Added automatically from request for surgery [id number] Malignant neoplasm of lower- inner quadrant of right breast of female, estrogen receptor positive (HCC) 06/03/2017 07/06/2021 Personal history of breast cancer 12/18/2016 04/09/2021 Overview: Added automatically from request for surgery [id number] Permanent atrial fibrillation 12/26/2015 07/01/2018 Diverticulitis of [...] of this encounter (statuses as of 01/14/2023) [facility] History of Past illness Narrative* Problem Noted Date Diagnosed Date Resolved Date Dysuria 07/06/2021 07/08/2021 Obesity, Class I, BMI 30-34.9 01/12/2021 04/09/2021 GI bleed 01/12/2021 01/14/2021 Acute blood loss anemia 01/12/202112/17 LLQ pain 09/05/2017 04/09/2021 Overview: Added automatically from request for surgery [id number] Malignant neoplasm of lower- inner quadrant of right breast of female, estrogen receptor positive 06/03/2017 07/06/2021 Personal history of breast cancer 12/18/2016 04/09/2021 Overview: Added automatically from request for surgery [id number] Permanent atrial fibrillation 12/26/2015 07/01/2018 Diverticulitis of [...] of this encounter (statuses as of 01/19/2023) [facility] History of Past illness Narrative* Problem Noted Date Diagnosed Date Resolved Date Dysuria 07/06/2021 07/08/2021 Obesity, Class I, BMI 30-34.9 01/12/2021 04/09/2021 GI bleed 01/12/2021 01/14/2021 Acute blood loss anemia 01/12/2021 1003/2020 LLQ pain 09/05/2017 04/09/2021 Overview: Added automatically from request for surgery [id number] Malignant neoplasm of lower- inner quadrant of right breast of female, estrogen receptor positive 06/03/2017 07/06/2021 Personal history of breast cancer 12/18/2016 04/09/2021 Overview: Added automatically from request for surgery [id number] Permanent atrial fibrillation 12/26/2015 07/01/2018 Diverticulitis of [...] of this encounter (statuses as of 01/19/2023) [facility] History of Past illness Narrative* Problem Noted Date Diagnosed Date Resolved Date Dysuria 07/06/2021 07/08/2021 Obesity, Class I, BMI 30-34.9 01/12/2021 04/09/2021 GI bleed 01/12/2021 01/14/2021 Acute blood loss anemia 01/12/202112/17 LLQ pain 09/05/2017 04/09/2021 Overview: Added automatically from request for surgery [id number] Malignant neoplasm of lower- inner quadrant of right breast of female, estrogen receptor positive (HCC) 06/03/2017 07/06/2021 Personal history of breast cancer 12/18/2016 04/09/2021 Overview: Added automatically from request for surgery [id number] Permanent atrial fibrillation 12/26/2015 07/01/2018 Diverticulitis of [...] of this encounter (statuses as of 02/12/2023) [facility] History of Past illness Narrative* Problem Noted Date Diagnosed Date Resolved Date Dysuria 07/06/2021 07/08/2021 Obesity, Class I, BMI 30-34.9 01/12/2021 04/09/2021 GI bleed 01/12/2021 01/14/2021 Acute blood loss anemia 01/12/202112/17 LLQ pain 09/05/2017 04/09/2021 Overview: Added automatically from request for surgery [id number] Malignant neoplasm of lower- inner quadrant of right breast of female, estrogen receptor positive (HCC) 06/03/2017 07/06/2021 Personal history of breast cancer 12/18/2016 04/09/2021 Overview: Added automatically from request for surgery [id number] Permanent atrial fibrillation 12/26/2015 07/01/2018 Diverticulitis of [...] of this encounter (statuses as of 04/25/2023) [facility] History of Past illness Narrative* Problem Noted Date Diagnosed Date Resolved Date Dysuria 07/06/2021 07/08/2021 Obesity, Class I, BMI 30-34.9 01/12/2021 04/09/2021 GI bleed 01/12/2021 01/14/2021 Acute blood loss anemia 01/12/2021 10/03/2020 LLQ pain 09/05/2017 04/09/2021 Overview: Added automatically from request for surgery [id number] Malignant neoplasm of lower- inner quadrant of right breast of female, estrogen receptor positive (HCC) 06/03/2017 07/06/2021 Personal history of breast cancer 12/18/2016 04/09/2021 Overview: Added automatically from request for surgery [id number] Permanent atrial fibrillation 12/26/2015 07/01/2018 Diverticulitis of [...] of this encounter (statuses as of 04/30/2023) [facility] History of Past illness Narrative* Problem Noted Date Diagnosed Date Resolved Date Dysuria 07/06/2021 07/08/2021 Obesity, Class I, BMI 30-34.9 01/12/2021 04/09/2021 GI bleed 01/12/2021 01/14/2021 Acute blood loss anemia 01/12/202112/17 LLQ pain 09/05/2017 04/09/2021 Overview: Added automatically from request for surgery [id number] Malignant neoplasm of lower- inner quadrant of right breast of female, estrogen receptor positive 06/03/2017 07/06/2021 Personal history of breast cancer 12/18/2016 04/09/2021 Overview: Added automatically from request for surgery [id number] Permanent atrial fibrillation 12/26/2015 07/01/2018 Diverticulitis of [...] as of this encounter (statuses as of 05/19/2023) 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 History of Past illness Narrative* Problem Noted Date Diagnosed Date Resolved Date Dysuria 07/06/2021 07/08/2021 Obesity, Class I, BMI 30-34.9 01/12/2021 04/09/2021 GI bleed 01/12/2021 01/14/2021 Acute blood loss anemia 01/12/2021 10/03/2020 LLQ pain 09/05/2017 04/09/2021 Overview: Added automatically from request for surgery [id number] Malignant neoplasm of lower- inner quadrant of right breast of female, estrogen receptor positive 06/03/2017 07/06/2021 Personal history of breast cancer 12/18/2016 04/09/2021 Overview: Added automatically from request for surgery [id number] Permanent atrial fibrillation 12/26/2015 07/01/2018 Diverticulitis of [...] as of this encounter (statuses as of 06/10/2023) [facility] History of Past illness Narrative* Problem Noted Date Diagnosed Date Resolved Date Dysuria 07/06/2021 07/08/2021 Obesity, Class I, BMI 30-34.9 01/12/2021 04/09/2021 GI bleed 01/12/2021 01/14/2021 Acute blood loss anemia 01/12/2021/03/2020 LLQ pain 09/05/2017 04/09/2021 Overview: Added automatically from request for surgery [id number] Malignant neoplasm of lower- inner quadrant of right breast of female, estrogen receptor positive 06/03/2017 07/06/2021 Personal history of breast cancer 12/18/2016 04/09/2021 Overview: Added automatically from request for surgery [id number] Permanent atrial fibrillation 12/26/2015 07/01/2018 Diverticulitis of [...] as of this encounter (statuses as of 06/17/2023) [facility] of Past illness Narrative* Problem Noted Date Diagnosed Date Resolved Date Dysuria 07/06/2021 07/08/2021 Obesity, Class I, BMI 30-34.9 01/12/2021 04/09/2021 GI bleed 01/12/2021 01/14/2021 Acute blood loss anemia 01/12/202112/17 LLQ pain 09/05/2017 04/09/2021 Overview: Added automatically from request for surgery [id number] Malignant neoplasm of lower- inner quadrant of right breast of female, estrogen receptor positive 06/03/2017 07/06/2021 Personal history of breast cancer 12/18/2016 04/09/2021 Overview: Added automatically from request for surgery [id number] Permanent atrial fibrillation 12/26/2015 07/01/2018 Diverticulitis of [...] as of this encounter (statuses as of 06/18/2023) [facility] of Past illness Narrative* Problem Noted Date Diagnosed Date Resolved Date Dysuria 07/06/2021 07/08/2021 Obesity, Class I, BMI 30-34.9 01/12/2021 04/09/2021 GI bleed 01/12/2021 01/14/2021 Acute blood loss anemia 01/12/202112/17 LLQ pain 09/05/2017 04/09/2021 Overview: Added automatically from request for surgery [id number] Malignant neoplasm of lower- inner quadrant of right breast of female, estrogen receptor positive 06/03/2017 07/06/2021 Personal history of breast cancer 12/18/2016 04/09/2021 Overview: Added automatically from request for surgery [id number] Permanent atrial fibrillation 12/26/2015 07/01/2018 Diverticulitis of [...] as of this encounter (statuses as of 06/19/2023) [facility] of Past illness Narrative* Problem Noted Date Diagnosed Date Resolved Date Dysuria 07/06/2021 07/08/2021 Obesity, Class I, BMI 30-34.9 01/12/2021 04/09/2021 GI bleed 01/12/2021 01/14/2021 Acute blood loss anemia 01/12/202112/17 LLQ pain 09/05/2017 04/09/2021 Overview: Added automatically from request for surgery [id number] Malignant neoplasm of lower- inner quadrant of right breast of female, estrogen receptor positive 06/03/2017 07/06/2021 Personal history of breast cancer 12/18/2016 04/09/2021 Overview: Added automatically from request for surgery [id number] Permanent atrial fibrillation 12/26/2015 07/01/2018 Diverticulitis of [...] as of this encounter (statuses as of 07/01/2023) [facility] History of Past illness Narrative* Problem Noted Date Diagnosed Date Resolved Date Dysuria 07/06/2021 07/08/2021 Obesity, Class I, BMI 30-34.9 01/12/2021 04/09/2021 GI bleed 01/12/2021 01/14/2021 Acute blood loss anemia 01/12/2021/03/2020 LLQ pain 09/05/2017 04/09/2021 Overview: Added automatically from request for surgery [id number] Malignant neoplasm of lower- inner quadrant of right breast of female, estrogen receptor positive 06/03/2017 07/06/2021 Personal history of breast cancer 12/18/2016 04/09/2021 Overview: Added automatically from request for surgery [id number] Permanent atrial fibrillation 12/26/2015 07/01/2018 Diverticulitis of [...] as of this encounter (statuses as of 07/02/2023) [facility] History of Past illness Narrative* Problem Noted Date Diagnosed Date Resolved Date Dysuria 07/06/2021 07/08/2021 Obesity, Class I, BMI 30-34.9 01/12/2021 04/09/2021 GI bleed 01/12/2021 01/14/2021 Acute blood loss anemia 01/12/202112/17 LLQ pain 09/05/2017 04/09/2021 Overview: Added automatically from request for surgery [id number] Malignant neoplasm of lower- inner quadrant of right breast of female, estrogen receptor positive 06/03/2017 07/06/2021 Personal history of breast cancer 12/18/2016 04/09/2021 Overview: Added automatically from request for surgery [id number] Permanent atrial fibrillation 12/26/2015 07/01/2018 Diverticulitis of [...] as of this encounter (statuses as of 07/04/2023) [facility] Miscellaneous Notes* Telephone Encounter - Coreen Concepcion MD - 07/06/2021 12:10 PM EDT Had spoken to Dr. Turk regarding her plan- ERCP with prophylactic sphincterotomy and referral for cholecystectomy at [facility]. Unfortunately she will likely become obstructed regardless of ERCP because of this 3.3 cm stone. Called patient's daughter (patient did not answer), patient is currently in Emergency department with worsening pain, fevers. Will likely be admitted, high concern for biliary obstruction. [facility] History of Present illness Narrative* Johnny [...] had black tarry stools and presented to [facility] for post polypectomy bleed. At the [...] opinions from the recent CT scan at [facility] versus the prior scan, I elected to obtain an ultrasound and repeat laboratory studies. The CT scan from [facility] was supposed to be loaded into the [...] 99 74 - 99 mg/dL Final The [place] Diabetes Association (ADA) provides guidance for cutoff [...] Standards of Medical Care in Diabetes 2016, [place] Diabetes Association. Diabetes Care. 2016.39(Suppl 1). BUN [...] addended to a previously final verified report. [place]% 07/05/2021 14.0 % Final This is an addended report. These results have been addended to a previously final verified report. Abs [place] 07/05/2021 1.22 (A) <0.87 k/uL Final This [...] Referred by noted on Friday to her hospitality director. She question whether the patient truly had [...] mouth once daily. Taking 1000 glucosamine/msm/chondroitin A (ULJDBQAWOMI-XDGWZL-XAC ORAL) Take 1 capsule by mouth once [...] injection (DEFINITY) INTRAVENOUS DIRECTED PRN Aleks Estes APRN.CNP, DNP sodium chloride 0.9 % (flush) 10 mL [...] Age of Onset other ( age 60 [place]) Mother hypertension and TB other (pancreatic cancer) [...] C (98.6 F), height 167.6 cm (5' 6), orcwko04.8 kg (176 lb), SpO2 100 %. Body [...] to have her CT scan images from [facility] loaded in the [facility] system and compare this to the [...] My findings have been communicated to Dr. Galina Iraheta MD via shared medical record. This note will be forwarded to Dr. Galina Iraheta MD. She is to follow-up with me as needed. Johnny Turk MD [facility] Miscellaneous Notes* Telephone Encounter - Bernie Aguilar LPN - 07/05/2021 4:38 PM EDT Eloisa notified, verbalized understanding. Eloisa states that patient will be admitted into [facility] tomorrow. Just an FYI * Telephone Encounter - Ambar Negrete APRN.SCRAP PILER - 07/05/2021 3:35 PM EDT PCP Galina Iraheta MD Seen by Alma Ta 07/03/2021. Seen [...] [facility]. Reports pt is ill with [...] term for pain? Pt uses [facility] in [place]. Please call daughter Eloisa to notify her. Eloisa also asking for message to go to Dr Turk since pt was seen by him today. Aliyah Oliva LPN documented in this encounterSt[facility] History of Present illness Narrative* Alma Ta APRN.TRAINING PROGRAM DEVELOPER - 07/03/2021 12:15 PM EDT CC: Patient [...] mass on liver PMR (polymyalgia rheumatica) ([facility]) 2012 Pure hypercholesterolemia Snoring Squamous cell cancer [...] mouth once daily. Taking 1000 glucosamine/msm/chondroitin A (MCYYSUGYZCE-HSUZSG-COV ORAL) Take 1 capsule by mouth once [...] Age of Onset other ( age 60 [place]) Mother hypertension and TB other (pancreatic cancer) [...] abdominal tenderness DATA REVIEWED: Outside chart from [facility] ER reviewed. ASSESSMENT/PLAN: 1. Dysuria - ICD9: 788.1, ICD10: R30.0 (primary diagnosis) Chronic. Urine cultures negative for UTI and no improvement with antibiotics. Differentials includeyeast infection, atrophic vaginitis, interstitial cystitis Start Diflucan for possible yeast infection Follow-up with REMEDIAL PROJECT MANAGER as scheduled next week and discuss further [...] plan. Alma Ta APRN.CNP documented in this encounterSt. [facility]04[facility]22 Miscellaneous Notes* Telephone Encounter - Madonna Dickson LPN - 07/03/2021 11:01 AM EDT Called [facility] medical records to fax ER visit from 07/02/21 . * Telephone Encounter - Madonna Dickson LPN - 07/03/2021 8:59 AM EDT Patient called wants to talk to Dr Turk, was in [facility] ER last night 07/02/21, [place] wanted to do surgery on gallbladder, patient declined, states wants to f/up with Dr Turk before proceeding. Please advise. [phone] documented in this encounterSt. [facility] Hospital04-08-2022 Miscellaneous Notes* Telephone Encounter - Corinna Arenas, [facility] - 06/22/2021 10:[address] [facility] Anticoagulation Episode Summary Anticoagulation Care Providers Provider Role Specialty Phone number Galina Iraheta MD Responsible Internal Medicine [phone] Christian Landrum is a 85 year old [...] * Unknown Zestril [Lisinopril] Indication for Warfarin: intermediate frame tender (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 anticoagulants Paroxysmal atrial fibrillation (hcc) Anticoagulation Episode Summary Current INR goal: 2.0-3.0 Assessment: INR result of 2.1 is therapeutic Plan: Sent Explore Engage message Advised patient to continue current weekly dose Next home INR check scheduled on 07/06/2021 Corinna Arenas RPh Clinical Pharmacist, Pharmacy Anticoagulation Clinic Pharmacy Anticoagulation Clinic Pager: [phone] . documented in this encounterSt. Francis Hospital04-06-2022 Miscellaneous Notes* Telephone Encounter - Jerrica Rothman RPh - 06/20/2021 4:55 PM EDT Patient was due to test INR today will continue to monitor for results. Jerrica Rothman PharmD documented in this encounterSt. [facility] Hospital04-05-2022 Miscellaneous Notes* Telephone Encounter - Page Palmer - 06/19/2021 8:28 AM EDT Patient given results and verbalized understanding of instructions given. Page Palmer * Telephone Encounter - Basilia Cueto APRN.[facility] - 06/19/2021 6:54 AM EDT Please inform patient that urine culture did not show any growth of bacteria requiring treatment. She may stop macrobid. Recommend patient follow up with Dr. Arzola as discussed at visit. Basilia Cueto APRN.CNP documented in this encounterSt. Francis Hospital03-22-2022 History of Present illness Narrative* Aby Bruner DO - 06/05/2021 11:00 AM EDT This office note has been dictated. Aby Bruner DO documented in this encounterSt. Francis Hospital03-03-2022 History of Present illness Narrative* RT [...] 17, 2021 5:46 PM documented in this encounterSt. Francis Hospital11-30-2021 Miscellaneous Notes* Telephone Encounter - Galina Solorzano LPN - 02/13/2021 10:48 AM EST Patient Health POA/ daughter notified of results, verbalizes understanding of instructions. Galina Solorzano LPN * Telephone Encounter - Galina Iraheta MD - 02/12/2021 5:32 PM EST Probiotics [...] Diff in future * Telephone Encounter - Galina Iraheta MD - 02/09/2021 5:58 PM EST I refilled the medication * Telephone Encounter - Violet Rockwell RN - 02/07/2021 9:18 AM EST Patient reports Dr. Turk prescribed omeprazole for her after an upper/lower GI showed she had a bleeding stomach which resulted in anemic. Reports she has 5 days left of pills. Asking Dr. Iraheta if she is suppose to keep taking them? Are you able to send refills to [facility]? Please advise patient. documented in this encounterSt. Francis Hospital10-31-2021 NoteHNO ID: [id number] Author: Johnny Turk MD Service: General Surgery [...] VTE Prophylaxis/Anticoagulants 01/12/211999 activity - mobilize patient ([place], [place]) VTE Prophylaxis: VTE prophylaxis appropriate SIGNATURE: Johnny Turk MD PATIENT NAME: Christian Landrum DATE: January 14, 2021 TIME: 12:07 PMGalion [id number] NoteHNO ID: [id number] Author: Wendy Bonilla DO Service: Hospital Medicine Author Type: Physician Type: Progress Notes Filed: 01/13/2021 4:03 PM Note Text: DEPARTMENT OF HOSPITAL MEDICINE PROGRESS NOTE SERVICE DATE: 01/13/2021 SERVICE TIME: 3:50 PM Hospital Medicine/Primary Attending: Wendy Bonilla DO NIGHT AND WEEKEND COVERAGE: [employer]: Days: [phone], please page attending physician. Nights: [phone], please page [place] [facility] Night coverage pager [phone]. Subjective INTERVAL HPI: feels well today. No [...] fatty liver in the past. Also on usp methotrexate. Noted positive Hepatitis B core ab I ordered the rest of the hepatitis serologies her Work Checker recommended and she will need to f/u with GI outpatient Endometrial thickening on ultrasound Obtain transvaginal US If thickened endometrium then she needs to see (more content not included)... [facility] [id number] NoteHNO ID: [id number] Author: ALICIA Ramires Service: Radiology Author Type: Clinical Skimmer Scoop Operator Type: Progress Notes Filed: 01/12/2021 4:19 PM [...] RADIOLOGY DEPARTMENT: CT; Exam(s) Completed: Abdomen/Pelvis SIGNATURE: ALICIA Ramires PATIENT NAME: Christian Landrum DATE: January 12, 2021 TIME: 4:06 [id number] History of Past illness Narrative* Problem Noted Date Resolved Date Obesity, Class I, BMI 30-34.9 01/12/2021 GI bleed 01/12/2021 01/14/2021 Acute blood loss anemia 01/12/2021 01/15/20 LLQ pain 09/05/2017 04/09/2021 Overview: Added automatically from request for surgery [id number] Personal history of breast cancer 12/18/2016 04/09/2021 Overview: Added automatically from request for surgery [id number] Permanent atrial fibrillation 12/26/2015 Diverticulitis of large [...] of this encounter (statuses as of 06/05/2021) [facility] History of Past illness Narrative* Problem Noted Date Resolved Date Obesity, Class I, BMI 30-34.9 01/12/2021 GI bleed 01/12/2021 01/14/2021 Acute blood loss anemia 01/12/2021 01/15/20 LLQ pain 09/05/2017 04/09/2021 Overview: Added automatically from request for surgery [id number] Personal history of breast cancer 12/18/2016 04/09/2021 Overview: Added automatically from request for surgery [id number] Permanent atrial fibrillation 12/26/2015 Diverticulitis of large [...] of this encounter (statuses as of 06/19/2021) [facility] History of Past illness Narrative* Problem Noted Date Resolved Date Obesity, Class I, BMI 30-34.9 01/12/2021 GI bleed 01/12/2021 01/14/2021 Acute blood loss anemia 01/12/2021 01/15/20 LLQ pain 09/05/2017 04/09/2021 Overview: Added automatically from request for surgery [id number] Personal history of breast cancer 12/18/2016 04/09/2021 Overview: Added automatically from request for surgery [id number] Permanent atrial fibrillation 12/26/2015 Diverticulitis of large [...] of this encounter (statuses as of 06/22/2021) [facility] of Past illness Narrative* Problem Noted Date Resolved Date Obesity, Class I, BMI 30-34.9 01/12/2021 GI bleed 01/12/2021 01/14/2021 Acute blood loss anemia 01/12/2021 01/15/20 21 LLQ pain 09/05/2017 04/09/2021 Overview: Added automatically from request for surgery [id number] Personal history of breast cancer 12/18/2016 04/09/2021 Overview: Added automatically from request for surgery [id number] Permanent atrial fibrillation 12/26/2015 Diverticulitis of large [...] of this encounter (statuses as of 06/26/2021) [facility] of Past illness Narrative* Problem Noted Date Resolved Date Obesity, Class I, BMI 30-34.9 01/12/2021 GI bleed 01/12/2021 01/14/2021 Acute blood loss anemia 01/12/2021 01/15/20 LLQ pain 09/05/2017 04/09/2021 Overview: Added automatically from request for surgery [id number] Personal history of breast cancer 12/18/2016 04/09/2021 Overview: Added automatically from request for surgery [id number] Permanent atrial fibrillation 12/26/2015 Diverticulitis of large [...] of this encounter (statuses as of 07/03/2021) [facility] of Past illness Narrative* Problem Noted Date Resolved Date Obesity, Class I, BMI 30-34.9 01/12/2021 GI bleed 01/12/2021 01/14/2021 Acute blood loss anemia 01/12/2021 01/15/20 21 LLQ pain 09/05/2017 04/09/2021 Overview: Added automatically from request for surgery [id number] Personal history of breast cancer 12/18/2016 04/09/2021 Overview: Added automatically from request for surgery [id number] Permanent atrial fibrillation 12/26/2015 Diverticulitis of large [...] of this encounter (statuses as of 07/05/2021) [facility] of Past illness Narrative* Problem Noted Date Resolved Date Obesity, Class I, BMI 30-34.9 01/12/2021 GI bleed 01/12/2021 01/14/2021 Acute blood loss anemia 01/12/2021 01/15/20 LLQ pain 09/05/2017 04/09/2021 Overview: Added automatically from request for surgery [id number] Personal history of breast cancer 12/18/2016 04/09/2021 Overview: Added automatically from request for surgery [id number] Permanent atrial fibrillation 12/26/2015 Diverticulitis of large [...] of this encounter (statuses as of 07/05/2021) [facility] of Past illness Narrative* Problem Noted Date Resolved Date Obesity, Class I, BMI 30-34.9 01/12/2021 GI bleed 01/12/2021 01/14/2021 Acute blood loss anemia 01/12/2021 01/15/20 21 LLQ pain 09/05/2017 04/09/2021 Overview: Added automatically from request for surgery [id number] Personal history of breast cancer 12/18/2016 04/09/2021 Overview: Added automatically from request for surgery [id number] Permanent atrial fibrillation 12/26/2015 Diverticulitis of large [...] of this encounter (statuses as of 07/06/2021) [facility] NoteHNO ID: [id number] Author: ANIKET Martin Service: Radiology Author Type: Clinical Skimmer Scoop Operator Type: Progress Notes Filed: 01/10/2021 10:31 AM [...] POST EXAM PIV STATUS: Discontinued PROCEDURE TYPE: IN Stress: 12.1mCi [id number] was administered IV for Rest Imaging at 9:05 by ANIKET Martin. 31.2 mCi [id number] was administered IV for Stress Imaging at 10:02 by ANIKET Martin. PATIENT DISCHARGED TO: Ambulatory patient, left IN department area. A Diagnostic radioactive procedure has taken place, with no further precautions necessary other than routine body substance precautions. More information regarding radiation safety can be found using this link: [email or web address] SIGNATURE: ANIKET Martin PATIENT NAME: Christian Landrum DATE: January 10, 2021 TIME: 10:30 AM PAGER/CONTACT #:[facility] [id number] History of Present illness Narrative* Gladis Beltran RT(R) - 11/27/2020 4:20 PM EDT Radiology Service Progress Note PATIENT NAME: Christian Landrum DATE OF SERVICE: November 27, 2020 TIME: 4:17 PM PATIENT IDENTITY VERIFICATION COMPLETED USING TWO [...] IV DATA: Not applicable SIGNED BY: RT Stanley(R) November 27, 2020 4:17 PM documented in this encounterSt. Francis Hospital02-19-2021 History of Present illness Narrative* Gladis Beltran)Karri - 05/05/2020 3:00 PM EST Radiology Service Progress Note PATIENT NAME: Christian Landrum DATE OF SERVICE: May 05, 2020 TIME: 2:54 PM PATIENT IDENTITY VERIFICATION COMPLETED USING TWO [...] IV DATA: Not applicable SIGNED BY: RT Stanley May 05, 2020 2:54 PM [facility] Diagnosis Venous (peripheral) insufficiency- Primary Unspecified venous (peripheral) insufficiency documented in this encounter [facility] note* Diagnosis USP (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 anticoagulants Long-term (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 anticoagulants Paroxysmal atrial fibrillation (HCC) Atrial fibrillation documented in this encounter [facility] note* Diagnosis Malignant neoplasm of lower-inner quadrant of right breast of female, estrogen receptor positive (HCC)- Primary [facility]Eval[facility] noteNo assessment information availableWOhioHealth Berger [facility] Work Phone: Evaluation note* Diagnosis Dysuria- Primary Right upper quadrant abdominal pain Abdominal pain, right upper quadrant Chronic anticoagulation Long-term (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 anticoagulants [facility]* Diagnosis Polymyalgia rheumatica (HCC)- Primary Polymyalgia rheumatica [facility] this [facility]* Diagnosis Calculus of gallbladder without cholecystitis without obstruction- Primary Calculus of gallbladder without mention of cholecystitis or obstruction Secondary biliary cirrhosis (HCC) Biliary cirrhosis [facility]* Diagnosis Malignant neoplasm of lower-inner quadrant of right breast of female, estrogen receptor positive (HCC)- Primary [facility] this [facility]* Diagnosis intermediate frame tender (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 anticoagulants Long-term (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 anticoagulants Paroxysmal atrial fibrillation (HCC) Atrial fibrillation [facility] this [facility]* Diagnosis History of recent hospitalization- Primary Personal history of unspecified disease Dysuria Recurrent UTI Urinary tract infection, site not specified Cirrhosis of liver with ascites, unspecified hepatic cirrhosis type (HCC) Biliary colic Calculus of gallbladder without mention of cholecystitis or obstruction [facility]* Diagnosis Dysuria- Primary [facility] this encounter [facility]* Diagnosis USP (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 anticoagulants Long-term (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 anticoagulants Paroxysmal atrial fibrillation (HCC) Atrial fibrillation [facility]* Diagnosis Acute cystitis without hematuria- Primary Acute cystitis PMB (postmenopausal bleeding) Postmenopausal bleeding Endometrial thickening on ultrasound [facility]* Diagnosis USP (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 anticoagulants Long-term (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 anticoagulants Paroxysmal atrial fibrillation (HCC) Atrial fibrillation [facility]* Diagnosis Onset Date Resolution Status Endometrial thickening on ultrasound acute PMB (postmenopausal bleeding) acute History of diverticulitis of colon [facility] Work Phone: Evaluation note* Diagnosis PMB (postmenopausal bleeding)- Primary Postmenopausal bleeding Endometrial thickening on ultrasound [facility]* Diagnosis Old laceration of cervix uteri- Primary Old laceration of cervix Abnormal uterine bleeding (AUB) [facility]* Diagnosis Recurrent UTI- Primary Urinary tract infection, site not specified Mixed stress and urge urinary incontinence Mixed incontinence urge and stress (male)(female) Old laceration of cervix uteri Old laceration of cervix [facility]* Diagnosis USP (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 anticoagulants Long-term (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 anticoagulants Paroxysmal atrial fibrillation (HCC) Atrial fibrillation [facility]* Diagnosis Paroxysmal atrial fibrillation (HCC)- Primary Atrial fibrillation Rheumatic mitral regurgitation Rheumatic mitral insufficiency Essential hypertension Unspecified essential hypertension Mixed hyperlipidemia Hyperglycemia Other abnormal glucose PAF (paroxysmal atrial fibrillation) (HCC) Atrial fibrillation Shortness of breath SVT (supraventricular tachycardia) (HCC) Other specified cardiac dysrhythmias [facility]* Diagnosis Old laceration of cervix uteri- Primary Old laceration of cervix [facility]* Diagnosis Malignant neoplasm of lower-inner quadrant of right breast of female, estrogen receptor positive (HCC)- Primary [facility]* Diagnosis Malignant neoplasm of lower-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 coli infection Personal history of other infectious and parasitic disease Mixed stress and urge urinary incontinence Mixed incontinence urge and stress (male)(female) [facility]* Diagnosis Recurrent UTI Urinary tract infection, site not specified History of ESBL E. coli infection Personal history of other infectious and parasitic disease [facility]* Diagnosis Chronic anticoagulation- Primary Long-term (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 anticoagulants [facility]* Diagnosis Malignant neoplasm of lower-inner quadrant of right breast of female, estrogen receptor positive (HCC)- Primary Chronic anticoagulation Long-term (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 anticoagulants [facility]* Diagnosis intermediate frame tender (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 anticoagulants Long-term (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 anticoagulants Paroxysmal atrial fibrillation (HCC) Atrial fibrillation [facility]* Diagnosis Onset Date Resolution Status History of diverticulitis of colon chronic Endometrial thickening on ultrasound resolved PMB (postmenopausal bleeding) resolved [facility] Work Phone: Evaluation note* Diagnosis BRBPR (bright red blood per rectum)- Primary Hemorrhage of rectum and anus USP (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 anticoagulants Long-term (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 anticoagulants Paroxysmal atrial fibrillation (HCC) Atrial fibrillation [facility]* Diagnosis USP (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 anticoagulants Long-term (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 anticoagulants Paroxysmal atrial fibrillation (HCC) Atrial fibrillation [facility]* Diagnosis Malignant neoplasm of lower-inner quadrant of right breast of female, estrogen receptor positive (HCC)- Primary [facility]* Diagnosis Malignant neoplasm of lower-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 coli infection Personal history of other infectious and parasitic disease Vaginal atrophy Postmenopausal atrophic vaginitis [facility]* Diagnosis Primary osteoarthritis of both knees- Primary Primary localized osteoarthrosis, lower leg Chronic pain of right knee [facility]* Diagnosis Anemia, unspecified type- Primary [facility]* Diagnosis Malignant neoplasm of lower-inner quadrant of right breast of female, estrogen receptor positive (HCC)- Primary [facility]* Diagnosis Iron deficiency anemia due [...] specified intestinal malabsorption [facility]* Diagnosis 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 Other specified intestinal malabsorption [facility]* Diagnosis 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 (chronic) Malignant neoplasm of lower-inner quadrant of right breast of female, estrogen receptor positive (HCC) documented [facility] this encounter [facility]* Diagnosis 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 Other specified intestinal malabsorption [facility]* Diagnosis Chest pain, unspecified type- Primary Paroxysmal atrial fibrillation (HCC) Atrial fibrillation Rheumatic mitral regurgitation Rheumatic mitral insufficiency Essential hypertension Unspecified essential hypertension Mixed hyperlipidemia Obstructive sleep apnea syndrome Obstructive sleep apnea (adult) (pediatric) Shortness of breath [facility]* Diagnosis Personal history of breast cancer- Primary Personal history of malignant neoplasm of breast Rib pain on right side Chest pain, unspecified [facility]* Diagnosis Personal history of breast cancer- Primary Personal history of malignant neoplasm of breast [facility]* Diagnosis Personal history of breast cancer- Primary Personal history of malignant neoplasm of breast 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 blood loss (chronic) [facility]* Diagnosis Paroxysmal atrial fibrillation (HCC)- Primary Atrial fibrillation Rheumatic mitral regurgitation Rheumatic mitral insufficiency Essential hypertension Unspecified essential hypertension Mixed hyperlipidemia Obstructive sleep apnea syndrome Obstructive sleep apnea (adult) (pediatric) Shortness of breath PAF (paroxysmal atrial fibrillation) (HCC) Atrial fibrillation SVT (supraventricular tachycardia) (HCC) Other specified cardiac dysrhythmias [facility]* Diagnosis Encounter for care related to vascular access port- Primary Fitting and adjustment of vascular catheter [facility]* Diagnosis Pain in right wrist- Primary Pain in joint, forearm Primary osteoarthritis of both knees Primary localized osteoarthrosis, lower leg CMC arthritis Unspecified arthropathy, hand [facility]* Diagnosis Essential hypertension- Primary Unspecified essential hypertension Paroxysmal atrial fibrillation (HCC) Atrial fibrillation [facility]* Diagnosis Iron deficiency anemia due to [...] receptor positive (HCC) [facility]* Diagnosis Personal history of breast cancer Personal history of malignant neoplasm of breast Rib pain on right side Chest pain, unspecified documented [facility] encounter [facility]* Diagnosis Pain in right wrist Pain in joint, forearm [facility]* Diagnosis Personal history of breast cancer- Primary Personal history of malignant neoplasm of breast 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 blood loss (chronic) [facility]* Diagnosis Malignant neoplasm of lower-inner quadrant of right breast of female, estrogen receptor positive (HCC)- Primary 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 blood loss (chronic) [facility]* Diagnosis On prednisone therapy Screening for osteoporosis Special screening for osteoporosis [facility]* Diagnosis Primary osteoarthritis of both knees- Primary Primary localized osteoarthrosis, lower [facility] Rheumatic mitral regurgitation- Primary Rheumatic mitral insufficiency Paroxysmal atrial fibrillation (HCC) Atrial fibrillation Essential hypertension Unspecified essential hypertension Obstructive sleep apnea syndrome Obstructive sleep apnea (adult) (pediatric) Mixed hyperlipidemia Shortness of breath SVT (supraventricular tachycardia) (HCC) Other specified cardiac dysrhythmias [facility] Diagnosis Chronic pain of left knee- Primary Pain in joint, lower leg Primary osteoarthritis of both knees Primary localized osteoarthrosis, lower leg [facility] Primary osteoarthritis of both knees Primary localized osteoarthrosis, lower [facility] Primary osteoarthritis of both knees- Primary Primary localized osteoarthrosis, lower leg [facility] Diagnosis Rheumatoid arthritis involving multiple sites, unspecified whether rheumatoid factor present (HCC)- Primary Osteopenia of multiple sites Medication monitoring encounter Encounter for therapeutic drug monitoring Long-term use of Plaquenil Encounter for long-term (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 other medications Platelets decreased (HCC) Thrombocytopenia, unspecified [facility] Diagnosis Recurrent UTI- Primary Urinary tract infection, site not specified Vaginal atrophy Postmenopausal atrophic vaginitis [facility] Diagnosis 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, unspecified laterality (HCC)- [facility] Diagnosis Rheumatoid arthritis involving multiple sites with positive rheumatoid factor (HCC)- Primary Iron deficiency Iron deficiency anemia, unspecified [facility] Diagnosis Malignant neoplasm of lower-inner quadrant of right breast of female, estrogen receptor positive (HCC)- Primary 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 blood loss (chronic) [facility] Diagnosis Rheumatoid arthritis involving multiple sites with positive rheumatoid factor (HCC)- Primary [facility] Diagnosis Rheumatoid arthritis involving multiple sites with positive rheumatoid factor (HCC)- Primary [facility] Diagnosis Rheumatoid arthritis of multiple sites with negative rheumatoid factor (HCC)- Primary Malignant neoplasm of upper-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, unspecified laterality Diverticulosis of large intestine with hemorrhage Recurrent UTI Urinary tract infection, site not specified Constipation, unspecified constipation type Peritonitis (HCC) Unspecified peritonitis LLQ pain Abdominal pain, left lower quadrant 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, unspecified laterality (HCC)- Primary Need for vaccination Need for prophylactic vaccination and inoculation against unspecified single disease Essential hypertension, benign Obstructive sleep apnea syndrome Obstructive sleep apnea (adult) (pediatric) Hair loss Alopecia, unspecified Stress and adjustment reaction Other specified adjustment reaction Colitis Other and unspecified noninfectious gastroenteritis and colitis Squamous cell carcinoma Other malignant neoplasm without specification of site Diverticulitis of large intestine without perforation or abscess without bleeding Diverticulitis of colon (without mention of hemorrhage) Medicare annual wellness visit, subsequent- Primary Routine general medical examination at a health care facility Essential hypertension, benign Colitis Other and unspecified noninfectious gastroenteritis and colitis Polymyalgia rheumatica (HCC) Polymyalgia rheumatica 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, unspecified laterality (HCC)- Primary Need for vaccination Need for prophylactic vaccination and inoculation against unspecified single disease Essential hypertension, benign Obstructive sleep apnea syndrome Obstructive sleep apnea (adult) (pediatric) Hair loss Alopecia, unspecified Stress and adjustment reaction Other specified adjustment reaction Colitis Other and unspecified noninfectious gastroenteritis and colitis Squamous cell carcinoma Other malignant neoplasm without specification of site Diverticulitis of large intestine without perforation or abscess without bleeding Diverticulitis of colon (without mention of hemorrhage) Medicare annual wellness visit, subsequent- Primary Routine general medical examination at a health care facility Essential hypertension, benign Colitis Other and unspecified noninfectious gastroenteritis and colitis Polymyalgia rheumatica (HCC) Polymyalgia rheumatica 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, unspecified laterality (HCC) SVT (supraventricular tachycardia) (HCC) Other specified cardiac dysrhythmias Iron deficiency- Primary Iron deficiency anemia, unspecified 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, unspecified laterality (HCC)- Primary Need for vaccination Need for prophylactic vaccination and inoculation against unspecified single disease Essential hypertension, benign Obstructive sleep apnea syndrome Obstructive sleep apnea (adult) (pediatric) Hair loss Alopecia, unspecified Stress and adjustment reaction Other specified adjustment reaction Colitis Other and unspecified noninfectious gastroenteritis and colitis Squamous cell carcinoma Other malignant neoplasm without specification of site Diverticulitis of large intestine without perforation or abscess without bleeding Diverticulitis of colon (without mention of hemorrhage) Medicare annual wellness visit, subsequent- Primary Routine general medical examination at a health care facility Essential hypertension, benign Colitis Other and unspecified noninfectious gastroenteritis and colitis Polymyalgia rheumatica (HCC) Polymyalgia rheumatica 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, unspecified laterality (HCC) SVT (supraventricular tachycardia) (HCC) Other specified cardiac dysrhythmias Rheumatoid arthritis involving multiple sites, unspecified whether rheumatoid factor present (HCC) Senile osteoporosis Iron deficiency Iron deficiency anemia, unspecified 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, unspecified laterality (HCC)- Primary Need for vaccination Need for prophylactic vaccination and inoculation against unspecified single disease Essential hypertension, benign Obstructive sleep apnea syndrome Obstructive sleep apnea (adult) (pediatric) Hair loss Alopecia, unspecified Stress and adjustment reaction Other specified adjustment reaction Colitis Other and unspecified noninfectious gastroenteritis and colitis Squamous cell carcinoma Other malignant neoplasm without specification of site Diverticulitis of large intestine without perforation or abscess without bleeding Diverticulitis of colon (without mention of hemorrhage) Medicare annual wellness visit, subsequent- Primary Routine general medical examination at a health care facility Essential hypertension, benign Colitis Other and unspecified noninfectious gastroenteritis and colitis Polymyalgia rheumatica (HCC) Polymyalgia rheumatica 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, unspecified laterality (HCC)- Primary Need for vaccination Need for prophylactic vaccination and inoculation against unspecified single disease Essential hypertension, benign Obstructive sleep apnea syndrome Obstructive sleep apnea (adult) (pediatric) Hair loss Alopecia, unspecified Stress and adjustment reaction Other specified adjustment reaction Colitis Other and unspecified noninfectious gastroenteritis and colitis Squamous cell carcinoma Other malignant neoplasm without specification of site Diverticulitis of large intestine without perforation or abscess without bleeding Diverticulitis of colon (without mention of hemorrhage) Medicare annual wellness visit, subsequent- Primary Routine general medical examination at a health care facility Essential hypertension, benign Colitis Other and unspecified noninfectious gastroenteritis and colitis Polymyalgia rheumatica (HCC) Polymyalgia rheumatica 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, unspecified laterality (HCC) SVT (supraventricular tachycardia) (HCC) Other specified cardiac dysrhythmias Senile osteoporosis- Primary 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, unspecified laterality (HCC)- Primary Need for vaccination Need for prophylactic vaccination and inoculation against unspecified single disease Essential hypertension, benign Obstructive sleep apnea syndrome Obstructive sleep apnea (adult) (pediatric) Hair loss Alopecia, unspecified Stress and adjustment reaction Other specified adjustment reaction Colitis Other and unspecified noninfectious gastroenteritis and colitis Squamous cell carcinoma Other malignant neoplasm without specification of site Diverticulitis of large intestine without perforation or abscess without bleeding Diverticulitis of colon (without mention of hemorrhage) Medicare annual wellness visit, subsequent- Primary Routine general medical examination at a health care facility Essential hypertension, benign Colitis Other and unspecified noninfectious gastroenteritis and colitis Polymyalgia rheumatica (HCC) Polymyalgia rheumatica 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, unspecified laterality (HCC) SVT (supraventricular tachycardia) (HCC) Other specified cardiac dysrhythmias Cough 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, unspecified laterality (HCC)- Primary Need for vaccination Need for prophylactic vaccination and inoculation against unspecified single disease Essential hypertension, benign Obstructive sleep apnea syndrome Obstructive sleep apnea (adult) (pediatric) Hair loss Alopecia, unspecified Stress and adjustment reaction Other specified adjustment reaction Colitis Other and unspecified noninfectious gastroenteritis and colitis Squamous cell carcinoma Other malignant neoplasm without specification of site Diverticulitis of large intestine without perforation or abscess without bleeding Diverticulitis of colon (without mention of hemorrhage) Medicare annual wellness visit, subsequent- Primary Routine general medical examination at a health care facility Essential hypertension, benign Colitis Other and unspecified noninfectious gastroenteritis and colitis Polymyalgia rheumatica (HCC) Polymyalgia rheumatica 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, unspecified laterality (HCC) SVT (supraventricular tachycardia) (HCC) Other specified cardiac dysrhythmias Fever, unspecified fever cause documented in this encounter [facility]* Diagnosis Rheumatoid arthritis of multiple sites with negative rheumatoid factor (HCC)- Primary Malignant neoplasm of upper-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, unspecified laterality Diverticulosis of large intestine with hemorrhage Recurrent UTI Urinary tract infection, site not specified Constipation, unspecified constipation type Peritonitis (HCC) Unspecified peritonitis LLQ pain Abdominal pain, left lower quadrant 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, unspecified laterality (HCC)- Primary Need for vaccination Need for prophylactic vaccination and inoculation against unspecified single disease Essential hypertension, benign Obstructive sleep apnea syndrome Obstructive sleep apnea (adult) (pediatric) Hair loss Alopecia, unspecified Stress and adjustment reaction Other specified adjustment reaction Colitis Other and unspecified noninfectious gastroenteritis and colitis Squamous cell carcinoma Other malignant neoplasm without specification of site Diverticulitis of large intestine without perforation or abscess without bleeding Diverticulitis of colon (without mention of hemorrhage) Medicare annual wellness visit, subsequent- Primary Routine general medical examination at a health care facility Essential hypertension, benign Colitis Other and unspecified noninfectious gastroenteritis and colitis Polymyalgia rheumatica (HCC) Polymyalgia rheumatica 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, unspecified laterality (HCC)- Primary Need for vaccination Need for prophylactic vaccination and inoculation against unspecified single disease Essential hypertension, benign Obstructive sleep apnea syndrome Obstructive sleep apnea (adult) (pediatric) Hair loss Alopecia, unspecified Stress and adjustment reaction Other specified adjustment reaction Colitis Other and unspecified noninfectious gastroenteritis and colitis Squamous cell carcinoma Other malignant neoplasm without specification of site Diverticulitis of large intestine without perforation or abscess without bleeding Diverticulitis of colon (without mention of hemorrhage) Medicare annual wellness visit, subsequent- Primary Routine general medical examination at a health care facility Essential hypertension, benign Colitis Other and unspecified noninfectious gastroenteritis and colitis Polymyalgia rheumatica (HCC) Polymyalgia rheumatica 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, unspecified laterality (HCC)- Primary Need for vaccination Need for prophylactic vaccination and inoculation against unspecified single disease Essential hypertension, benign Obstructive sleep apnea syndrome Obstructive sleep apnea (adult) (pediatric) Hair loss Alopecia, unspecified Stress and adjustment reaction Other specified adjustment reaction Colitis Other and unspecified noninfectious gastroenteritis and colitis Squamous cell carcinoma Other malignant neoplasm without specification of site Diverticulitis of large intestine without perforation or abscess without bleeding Diverticulitis of colon (without mention of hemorrhage) Medicare annual wellness visit, subsequent- Primary Routine general medical examination at a health care facility Essential hypertension, benign Colitis Other and unspecified noninfectious gastroenteritis and colitis Polymyalgia rheumatica (HCC) Polymyalgia rheumatica 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, unspecified laterality (HCC)- Primary Need for vaccination Need for prophylactic vaccination and inoculation against unspecified single disease Essential hypertension, benign Obstructive sleep apnea syndrome Obstructive sleep apnea (adult) (pediatric) Hair loss Alopecia, unspecified Stress and adjustment reaction Other specified adjustment reaction Colitis Other and unspecified noninfectious gastroenteritis and colitis Squamous cell carcinoma Other malignant neoplasm without specification of site Diverticulitis of large intestine without perforation or abscess without bleeding Diverticulitis of colon (without mention of hemorrhage) Medicare annual wellness visit, subsequent- Primary Routine general medical examination at a health care facility Essential hypertension, benign Colitis Other and unspecified noninfectious gastroenteritis and colitis Polymyalgia rheumatica (HCC) Polymyalgia rheumatica 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, unspecified laterality (HCC) SVT (supraventricular tachycardia) (HCC) Other specified cardiac dysrhythmias Encounter for follow-up surveillance of breast cancer- Primary Unspecified follow-up examination 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 blood loss (chronic) Bilateral hip pain Pain in joint, pelvic region and thigh Generalized abdominal pain Abdominal pain, generalized Abdominal bloating Flatulence, eructation, and gas pain Personal history of breast cancer Personal history of malignant neoplasm of breast Occult blood in stools Nonspecific abnormal finding in stool contents 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, unspecified laterality (HCC)- Primary Need for vaccination Need for prophylactic vaccination and inoculation against unspecified single disease Essential hypertension, benign Obstructive sleep apnea syndrome Obstructive sleep apnea (adult) (pediatric) Hair loss Alopecia, unspecified Stress and adjustment reaction Other specified adjustment reaction Colitis Other and unspecified noninfectious gastroenteritis and colitis Squamous cell carcinoma Other malignant neoplasm without specification of site Diverticulitis of large intestine without perforation or abscess without bleeding Diverticulitis of colon (without mention of hemorrhage) Medicare annual wellness visit, subsequent- Primary Routine general medical examination at a health care facility Essential hypertension, benign Colitis Other and unspecified noninfectious gastroenteritis and colitis Polymyalgia rheumatica (HCC) Polymyalgia rheumatica 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, unspecified laterality (HCC)- Primary Need for vaccination Need for prophylactic vaccination and inoculation against unspecified single disease Essential hypertension, benign Obstructive sleep apnea syndrome Obstructive sleep apnea (adult) (pediatric) Hair loss Alopecia, unspecified Stress and adjustment reaction Other specified adjustment reaction Colitis Other and unspecified noninfectious gastroenteritis and colitis Squamous cell carcinoma Other malignant neoplasm without specification of site Diverticulitis of large intestine without perforation or abscess without bleeding Diverticulitis of colon (without mention of hemorrhage) Medicare annual wellness visit, subsequent- Primary Routine general medical examination at a health care facility Essential hypertension, benign Colitis Other and unspecified noninfectious gastroenteritis and colitis Polymyalgia rheumatica (HCC) Polymyalgia rheumatica 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, unspecified laterality (HCC)- Primary Need for vaccination Need for prophylactic vaccination and inoculation against unspecified single disease Essential hypertension, benign Obstructive sleep apnea syndrome Obstructive sleep apnea (adult) (pediatric) Hair loss Alopecia, unspecified Stress and adjustment reaction Other specified adjustment reaction Colitis Other and unspecified noninfectious gastroenteritis and colitis Squamous cell carcinoma Other malignant neoplasm without specification of site Diverticulitis of large intestine without perforation or abscess without bleeding Diverticulitis of colon (without mention of hemorrhage) Medicare annual wellness visit, subsequent- Primary Routine general medical examination at a health care facility Essential hypertension, benign Colitis Other and unspecified noninfectious gastroenteritis and colitis Polymyalgia rheumatica (HCC) Polymyalgia rheumatica 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, unspecified laterality (HCC)- Primary Need for vaccination Need for prophylactic vaccination and inoculation against unspecified single disease Essential hypertension, benign Obstructive sleep apnea syndrome Obstructive sleep apnea (adult) (pediatric) Hair loss Alopecia, unspecified Stress and adjustment reaction Other specified adjustment reaction Colitis Other and unspecified noninfectious gastroenteritis and colitis Squamous cell carcinoma Other malignant neoplasm without specification of site Diverticulitis of large intestine without perforation or abscess without bleeding Diverticulitis of colon (without mention of hemorrhage) Medicare annual wellness visit, subsequent- Primary Routine general medical examination at a health care facility Essential hypertension, benign Colitis Other and unspecified noninfectious gastroenteritis and colitis Polymyalgia rheumatica (HCC) Polymyalgia rheumatica 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, unspecified laterality (HCC)- Primary Need for vaccination Need for prophylactic vaccination and inoculation against unspecified single disease Essential hypertension, benign Obstructive sleep apnea syndrome Obstructive sleep apnea (adult) (pediatric) Hair loss Alopecia, unspecified Stress and adjustment reaction Other specified adjustment reaction Colitis Other and unspecified noninfectious gastroenteritis and colitis Squamous cell carcinoma Other malignant neoplasm without specification of site Diverticulitis of large intestine without perforation or abscess without bleeding Diverticulitis of colon (without mention of hemorrhage) Medicare annual wellness visit, subsequent- Primary Routine general medical examination at a health care facility Essential hypertension, benign Colitis Other and unspecified noninfectious gastroenteritis and colitis Polymyalgia rheumatica (HCC) Polymyalgia rheumatica 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, unspecified laterality (HCC)- Primary Need for vaccination Need for prophylactic vaccination and inoculation against unspecified single disease Essential hypertension, benign Obstructive sleep apnea syndrome Obstructive sleep apnea (adult) (pediatric) Hair loss Alopecia, unspecified Stress and adjustment reaction Other specified adjustment reaction Colitis Other and unspecified noninfectious gastroenteritis and colitis Squamous cell carcinoma Other malignant neoplasm without specification of site Diverticulitis of large intestine without perforation or abscess without bleeding Diverticulitis of colon (without mention of hemorrhage) Medicare annual wellness visit, subsequent- Primary Routine general medical examination at a health care facility Essential hypertension, benign Colitis Other and unspecified noninfectious gastroenteritis and colitis Polymyalgia rheumatica (HCC) Polymyalgia rheumatica 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, unspecified laterality (HCC) SVT (supraventricular tachycardia) (HCC) Other specified cardiac dysrhythmias Rheumatoid arthritis involving multiple sites, unspecified whether rheumatoid factor present (HCC)- Primary Senile osteoporosis On prednisone therapy documented in this encounter [facility] note* Diagnosis Rheumatoid arthritis of multiple sites with negative rheumatoid factor (HCC)- Primary Malignant neoplasm of upper-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, unspecified laterality Diverticulosis of large intestine with hemorrhage Recurrent UTI Urinary tract infection, site not specified Constipation, unspecified constipation type Peritonitis (HCC) Unspecified peritonitis LLQ pain Abdominal pain, left lower quadrant 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, unspecified laterality (HCC)- Primary Need for vaccination Need for prophylactic vaccination and inoculation against unspecified single disease Essential hypertension, benign Obstructive sleep apnea syndrome Obstructive sleep apnea (adult) (pediatric) Hair loss Alopecia, unspecified Stress and adjustment reaction Other specified adjustment reaction Colitis Other and unspecified noninfectious gastroenteritis and colitis Squamous cell carcinoma Other malignant neoplasm without specification of site Diverticulitis of large intestine without perforation or abscess without bleeding Diverticulitis of colon (without mention of hemorrhage) Medicare annual wellness visit, subsequent- Primary Routine general medical examination at a health care facility Essential hypertension, benign Colitis Other and unspecified noninfectious gastroenteritis and colitis Polymyalgia rheumatica (HCC) Polymyalgia rheumatica 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, unspecified laterality (HCC) SVT (supraventricular tachycardia) (HCC) Other specified cardiac dysrhythmias Rheumatoid arthritis involving multiple sites, unspecified whether rheumatoid factor present ([facility]) Senile osteoporosis documented in this encounter [facility] note* Diagnosis Rheumatoid arthritis of multiple sites with negative rheumatoid factor (HCC)- Primary Malignant neoplasm of upper-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, unspecified laterality Diverticulosis of large intestine with hemorrhage Recurrent UTI Urinary tract infection, site not specified Constipation, unspecified constipation type Peritonitis (HCC) Unspecified peritonitis LLQ pain Abdominal pain, left lower quadrant 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, unspecified laterality (HCC)- Primary Need for vaccination Need for prophylactic vaccination and inoculation against unspecified single disease Essential hypertension, benign Obstructive sleep apnea syndrome Obstructive sleep apnea (adult) (pediatric) Hair loss Alopecia, unspecified Stress and adjustment reaction Other specified adjustment reaction Colitis Other and unspecified noninfectious gastroenteritis and colitis Squamous cell carcinoma Other malignant neoplasm without specification of site Diverticulitis of large intestine without perforation or abscess without bleeding Diverticulitis of colon (without mention of hemorrhage) Medicare annual wellness visit, subsequent- Primary Routine general medical examination at a health care facility Essential hypertension, benign Colitis Other and unspecified noninfectious gastroenteritis and colitis Polymyalgia rheumatica (HCC) Polymyalgia rheumatica 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 Additional Instructions Call and follow-up with Dr. Javier Turk's soon as possible. If you develop increasing pain, fever, vomiting or feeling worse return. Avoid fatty and greasy foods they may irritate your gallbladder. Also avoid chocolate and cabbage. Your Coumadin level was elevated tonight with an INR 3.6. Hold your Coumadin today. You need to have your level rechecked either Friday or before you restart it. [facility] Work Phone: Hospital Discharge instructions[facility]: [facility] instructions[facility] Phone: [facility] instructions[facility] Work Phone: [facility] Work Phone: Hospital Discharge instructions Additional Instructions You are going to stop your Coumadin for 2 days. You are going to take the Aygestin 5 mg twice a day for 5 days. Please return here for worsening bleeding, dizziness, chest pain, any other concerns. [place] [facility] [place]: Hospital Discharge instructions Additional Instructions Please follow-up with your PCP. Please use Tylenol for any fevers.[facility] Work Phone: Hospital Discharge instructions Additional Instructions You were given 1 unit of blood. Please follow-up with your primary care doctor for further monitoring of your blood levels.[facility] Work Phone: Reason for referral (narrative)* Outpatient Procedure (Routine) - Closed Specialty Diagnoses / Procedures Referred By Michael mcgowan Referred To [facility] Diagnoses Paroxysmal atrial fibrillation (HCC) Rheumatic mitral regurgitation Essential hypertension Mixed hyperlipidemia Hyperglycemia PAF (paroxysmal atrial fibrillation) (HCC) Shortness of breath SVT (supraventricular tachycardia) (HCC) Procedures ECG COMPLETE ECG ROUTINE ECG W/LEAST 12 LDS W/I&R Cecilio Ibarra DO [address] [address] [facility] [place] [address] [place] [id number] Referral ID Status Reason Start Date Expiration Date V isits Requested Visits Authorized [id number] Closed Auto-Generate d Referral 09/05/2021 09/05/[address] [facility] for referral (narrative)* Diagnostic Procedure Only (Routine) - Closed Specialty Diagnoses / Procedures Referred By Michael mcgowan Referred To Contact XR IMAGING Diagnoses Personal history of breast cancer Rib pain on right side Procedures XR RIBS 2V AP/OBL RIGHT RADEX RIBS UNILATERAL 2 VIEWS Cassidy Arreola APRN.TRAINING PROGRAM DEVELOPER [address] [place] [address] Xr Imaging Referral ID Status Reason Start Date Expiration Date V isits Requested Visits Authorized [id number] Closed Auto-Generate d Referral 06/05/2022 07/05/[address] [facility] for referral (narrative)* Diagnostic Procedure Only (Routine) - Closed Specialty Diagnoses / Procedures Referred By Contac t Referred To Contact XR IMAGING Diagnoses Pain in right wrist Procedures XR WRIST GENERAL 3V PA/LAT/OBL RIGHT RADEX WRIST COMPLETE MINIMUM 3 VIEWS Stella Preciado PA-C [address] [place] [address] [place] [address] Referral ID Status Reason Start Date Expiration Date V isits Requested Visits Authorized [id number] Closed Auto-Generate d Referral 11/25/2022 12/25/[address] [facility] for referral (narrative)* Diagnostic Procedure Only (Routine) - Closed Specialty Diagnoses / Procedures Referred By Contac t Referred To Contact XR IMAGING Diagnoses Personal history of breast cancer Rib pain on right side Procedures XR RIBS 2V AP/OBL RIGHT RADEX RIBS UNILATERAL 2 VIEWS Cassidy Arreola APRN.TRAINING PROGRAM DEVELOPER [address] [place] [address] [place] [address] Referral ID Status Reason Start Date Expiration Date V isits Requested Visits Authorized [id number] Closed Auto-Generate d Referral 06/05/2022 07/05/[address] [facility] for referral (narrative)* Diagnostic Procedure Only (Routine) - Closed Specialty Diagnoses / Procedures Referred By Contac t Referred To Contact XR IMAGING Diagnoses Pain in right wrist Procedures XR WRIST GENERAL 3V PA/LAT/OBL RIGHT RADEX WRIST COMPLETE MINIMUM 3 VIEWS Stella Preciado PA-C [address] [place] [address] [place] [address] Referral ID Status Reason Start Date Expiration Date V isits Requested Visits Authorized [id number] Closed Auto-Generate d Referral 11/25/2022 12/25/[address] [facility] for referral (narrative)* Diagnostic Procedure Only (Routine) - Pending Review Specialty Diagnoses / Procedures Referred By Michael t Referred To Contact XR IMAGING Diagnoses Primary osteoarthritis of both knees Procedures XR KNEE GENERAL 4V AP BOTH/PA BOTH/LAT/MERC BILATERAL RADIOLOGIC EXAM KNEE COMPLETE 4/MORE VIEWS Stella Preciado PA-C [address] [place] [address] [place] [address] Referral ID Status Reason Start Date Expiration Date Visits Requested Visits Authorized [id number] Pending Review Auto-Generat ed Referral 06/10/2023 07/09/[address] [facility] for referral (narrative)No reason for referral information availableWOhioHealth [facility] Work Phone: Reason for referral (narrative)* Clinic-Administered Medication (Routine) - Authorized Specialty Diagnoses / Procedures Referred By Michael mcgowan Referred To Contact [facility] Thalia Monterroso MD [address] [place] [address] Phone: tel: fax: [facility] [place] [address] [place] [address] Referral ID Status Reason Start Date Expiration Date Visits Requested Visits Authorized [id number] Authorized Auto-Generat ed Referral 08/27/2024 11/25/[address] [facility] for visit Narrative* Diagnostic Procedure Only (Routine) - Closed Specialty Diagnoses / Procedures Referred By Cristyac t Referred To Contact XR IMAGING Diagnoses Personal history of breast cancer Rib pain on right side Procedures XR RIBS 2V AP/OBL RIGHT RADEX RIBS UNILATERAL 2 VIEWS Cassidy Arreola APRN.TRAINING PROGRAM DEVELOPER [address] [place] [address] [place] [address] Referral ID Status Reason Start Date Expiration Date V isits Requested Visits Authorized [id number] Closed Auto-Generate d Referral 06/05/2022 07/05/[address] [facility] for visit Narrative* Diagnostic Procedure Only (Routine) - Closed Specialty Diagnoses / Procedures Referred By Contac t Referred To Contact XR IMAGING Diagnoses Pain in right wrist Procedures XR WRIST GENERAL 3V PA/LAT/OBL RIGHT RADEX WRIST COMPLETE MINIMUM 3 VIEWS VeStella sexton, PA-C [address] [place] [address] [place] [address] Referral ID Status Reason Start Date Expiration Date V isits Requested Visits Authorized [id number] Closed Auto-Generate d Referral 11/25/2022 12/25/[address] [facility] for visit Narrative* Diagnostic Procedure Only (Routine) - Closed Specialty Diagnoses / Procedures Referred By Contac t Referred To Contact XR IMAGING Diagnoses Primary osteoarthritis of both knees Procedures XR KNEE GENERAL 4V AP BOTH/PA BOTH/LAT/MERC BILATERAL RADIOLOGIC EXAM KNEE COMPLETE 4/MORE VIEWS VeStella sexton, PA-C [address] [place] [address] [place] [address] Referral ID Status Reason Start Date Expiration Date V isits Requested Visits Authorized [id number] Closed Auto-Generate d Referral 06/10/2023 07/09/[address] [facility] for visit Narrative* Diagnostic Procedure Only (Routine) - Closed Specialty Diagnoses / Procedures Referred By Contac t Referred To Contact XR IMAGING Diagnoses Bilateral hip pain Procedures XR HIP BILATERAL 5V PEL/AP/LAT EACH HIP RADEX HIPS BILATERAL WITH PELVIS MINIMUM 5 VIEWS Cassidy Arreola APRN.TRAINING PROGRAM DEVELOPER [address] [place] [address] [place] [address] Referral ID Status Reason Start Date Expiration Date V isits Requested Visits Authorized [id number] Closed Auto-Generate d Referral 02/24/2024 03/25/[address] 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 Expl anation Advance Directive(s) 07/06/2021 12:56 PM [...] Maker Relationship: Health Ca re Power of Inspector Floor Sub Assembly Agent Latest Code Status on File Code Status Date Activated Date Inactivated Comments DNR-CCA 07/06/2021 6:27 PM 2021 5:16 PM Documents on File Type Date Recorded 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 Expl 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.] DNR-CCA 07/06/2021 6:27 PM 2021 5:16 PM Advance Directive Response Recorded Date/ Time Name of Medical Power of Inspector Floor Sub Assembly ALFREDO August 20, 2021 8:39am Name of Medical Power of Inspector Floor Sub Assembly eloisa August 26, 2021 1:00pm Living Will No October 18, 2021 11:00am Power of Inspector Floor Sub Assembly No October 18 11:00am Documents on File Type Date Recorded 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 Expl anation Advance Directive(s) 09/28/2020 12:50 PM Advance Directive(s) 12/28/2008 Advance Directive Response Recorded Date/ Time Living Will No December 28 12:16pm Power of Inspector Floor Sub Assembly No December 28, 2021 12:16pm Advance Directive Response Recorded Date/ Time Living Will No December 28 11:16am Power of Inspector Floor Sub Assembly No December 28, 2021 11:16am Documents on File Type Date Recorded 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 Expl anation Advance Directive(s) 09/28/2020 12:50 PM [...] Decision Maker Relationship: Health Care Power of Inspector Floor Sub Assembly Agent Latest Code Status on File Code [...] Decision Maker Relationship: Health Care Power of Inspector Floor Sub Assembly Agent Advance Directive Response Recorded Date/ Time Living Will No April 07 1:01pm Power of Inspector Floor Sub Assembly No April 07, 2023 1:01pm Advance Directive Response Recorded Date/ Time Living Will No April 07 2:01pm Power of Inspector Floor Sub Assembly No April 07, 2023 2:01pm Date Activated Date Inactivated Comments 08/12/2021 8:33 PM 08/13/2021 5:51 PM Question Answer Comments DNR Order Discussed With: Patient Date Activated Date Inactivated Comments 07/06/2021 6:27 PM 2021 5:16 PM Question Answer Comments DNR Order Discussed With: PatientSurrogate Decis ion Maker Surrogate Decision Maker Relationship: Health Ca re Power of Inspector Floor Sub Assembly Agent Date Activated Date Inactivated Comments 08/12/2021 8:33 PM 08/13/2021 5:51 PM Question Answer Comments DNR Order Discussed With: Patient Date Activated Date Inactivated Comments 07/06/2021 6:27 PM 2021 5:16 PM Question Answer Comments DNR Order Discussed With: PatientSurrogate Decis ion Maker Surrogate Decision Maker Relationship: Health Ca re Power of Inspector Floor Sub Assembly Agent Chief Complaint and Reason for Visit Chief Complaint abd Chief Complaint abd SHELTER BLOOD WORK Chief Complaint abd SHELTER BLOOD WORK LAB WORK LAB WORK Chief Complaint abd SHELTER BLOOD WORK LAB WORK LAB WORK hyster d&c symphion, polypectomy Reason for Visit Endometrial thickeni ng on ultrasound PMB (postmenopausal bleeding) History of diverticulitis of colon Chief Complaint abd SHELTER BLOOD WORK LAB WORK LAB WORK hyster d&c symphion, polypectomy VAGINAL BLEEDING POST OP D&C ON 08/24 Reason for Visit Endometrial thickeni ng on ultrasound PMB (postmenopausal bleeding) History of diverticulitis of colon Chief Complaint abd SHELTER BLOOD WORK LAB WORK LAB WORK hyster d&c symphion, polypectomy VAGINAL BLEEDING POST OP D&C ON 08/24 ABN Reason for Visit History of diverticu litis of colon Endometrial thickening on ultrasound PMB (postmenopausal bleeding) Chief Complaint SHELTER BLOOD W ORK LAB WORK LAB WORK hyster d&c symphion, polypectomy VAGINAL BLEEDING POST OP D&C ON 08/24 ABN SHELTER LAB WORK Reason for Visit History of diverticu litis of colon Endometrial thickening on ultrasound PMB (postmenopausal bleeding) Chief Complaint hyster d&c symphion, polypectomy VAGINAL BLEEDING POST OP D&C ON 08/24 ABN SHELTER LAB WORK LABWORK SHELTER LAB WORK Reason for Visit History of diverticu litis of colon Endometrial thickening on ultrasound PMB (postmenopausal bleeding) Chief Complaint ABN SHELTER LAB WORK LABWORK SHELTER LAB WORK SHELTER LABWORK SHELTER LABWORK NEW SYMPTOMS/CONCERN NEW SYMPTOMS/CONCERN ABNORMAL LABS Chief Complaint ABN SHELTER LAB WORK LABWORK SHELTER LAB WORK SHELTER LABWORK SHELTER LABWORK NEW SYMPTOMS/CONCERN SHELTER LABWORK NEW SYMPTOMS/CONCERN ABNORMAL LABS NEW SYMPTOMS/CONCERN SHELTER LAB WORK Chief Complaint ABN SHELTER LAB WORK LABWORK SHELTER LAB WORK LABWORK SHELTER LABWORK SHELTER LABWORK NEW SYMPTOMS/CONCERN SHELTER LABWORK NEW SYMPTOMS/CONCERN SHELTER LABWORK ABNORMAL LABS NEW SYMPTOMS/CONCERN SHELTER LAB WORK Chief Complaint ABN SHELTER LAB WORK LABWORK SHELTER LAB WORK LABWORK SHELTER LABWORK SHELTER LABWORK NEW SYMPTOMS/CONCERN SHELTER LABWORK NEW SYMPTOMS/CONCERN SHELTER LABWORK ABNORMAL LABS NEW SYMPTOMS/CONCERN SHELTER LAB WORK SHELTER LABWORK Chief Complaint ABN SHELTER LAB WORK LABWORK SHELTER LAB WORK LABWORK SHELTER LABWORK SHELTER LABWORK NEW SYMPTOMS/CONCERN SHELTER LABWORK NEW SYMPTOMS/CONCERN SHELTER LABWORK ABNORMAL LABS NEW SYMPTOMS/CONCERN SHELTER LAB WORK SHELTER LABWORK SHELTER LABWORK Chief Complaint LABWORK SHELTER LAB WORK LABWORK SHELTER LABWORK SHELTER LABWORK NEW SYMPTOMS/CONCERN SHELTER LABWORK NEW SYMPTOMS/CONCERN SHELTER LABWORK ABNORMAL LABS NEW SYMPTOMS/CONCERN SHELTER LAB WORK SHELTER LABWORK SHELTER LABWORK SHELTER LABWORK SHELTER LAB WORK [facility] Chief Complaint SHELTER LAB WOR K LABWORK SHELTER LABWORK SHELTER LABWORK NEW SYMPTOMS/CONCERN SHELTER LABWORK NEW SYMPTOMS/CONCERN SHELTER LABWORK ABNORMAL LABS NEW SYMPTOMS/CONCERN SHELTER LAB WORK SHELTER LABWORK SHELTER LABWORK SHELTER LABWORK SHELTER LAB WORK 2 [facility] Chief Complaint LABWORK SHELTER LABWORK SHELTER LABWORK NEW SYMPTOMS/CONCERN SHELTER LABWORK NEW SYMPTOMS/CONCERN SHELTER LABWORK ABNORMAL LABS NEW SYMPTOMS/CONCERN SHELTER LAB WORK SHELTER LABWORK SHELTER LABWORK SHELTER LABWORK SHELTER LABWORK SHELTER LAB WORK 2 [facility] NEW SYMPTOMS/CONCERNS Chief Complaint LABWORK SHELTER LABWORK SHELTER LABWORK NEW SYMPTOMS/CONCERN SHELTER LABWORK NEW SYMPTOMS/CONCERN SHELTER LABWORK ABNORMAL LABS NEW SYMPTOMS/CONCERN SHELTER LAB WORK SHELTER LABWORK SHELTER LABWORK SHELTER LABWORK SHELTER LABWORK SHELTER LAB WORK 2 [facility] SHELTER LABWORK NEW SYMPTOMS/CONCERNS NEW SYMPTOMS/CONCERN Chief Complaint SHELTER LABWORK ABNORMAL LABS NEW SYMPTOMS/CONCERN SHELTER LAB WORK SHELTER LABWORK SHELTER LABWORK SHELTER LABWORK SHELTER LABWORK SHELTER LAB WORK 2 UN[facility] SHELTER LABWORK NEW SYMPTOMS/CONCERNS NEW SYMPTOMS/CONCERN LABWORK Chief Complaint SHELTER LABWORK SHELTER LAB WORK 2 UN[facility] SHELTER LABWORK NEW SYMPTOMS/CONCERNS NEW SYMPTOMS/CONCERN LABWORK SHELTER LABWORK new symptoms Chief Complaint SHELTER LAB WOR K 2 UN[facility] SHELTER LABWORK NEW SYMPTOMS/CONCERNS NEW SYMPTOMS/CONCERN LABWORK SHELTER LABWORK new symptoms LABWORK Chief Complaint NEW SYMPTOMS/CONCERN S NEW SYMPTOMS/CONCERN LABWORK SHELTER LABWORK new symptoms LABWORK LABWORK Chief Complaint LABWORK NEW CONCERN SHELTER LABWORK SHELTER LAB WORK LABWORK LABWORK Chief Complaint SHELTER LAB WOR K LABWORK LABWORK SHELTER LAB WORK LABWORK Chief Complaint LABWORK SHELTER LAB WORK LABWORK SHELTER LABWORK Chief Complaint LABWORK NEW CONCERN SHELTER LABWORK SHELTER LABWORK SHELTER LABWORK Chief Complaint NEW CONCERN SHELTER LABWORK FOLLOW UP NOTE SHELTER LABWORK NEW CONCERN SHELTER LABWORK LABWORK Chief Complaint FOLLOW UP NOTE SHELTER LABWORK NEW CONCERN SHELTER LABWORK LABWORK LABWORK Chief Complaint SHELTER LABWORK NEW CONCERN SHELTER LABWORK LABWORK LABWORK LABWORK Chief Complaint Admit Date SHELTER LAB WORK March 01 5:00am SHELTER LAB WORK March 02 5:00am SHELTER LAB WORK April 05, 2024 5:00am SHELTER LAB WORK April 23, 2024 4:00am SHELTER LABWORK May 03, 2024 5:00am NEW CONCERN May 13, 2024 3:32pm LABWORK May 13, 2024 9:45pm LABWORK May 31, 2024 5:0 0am Chief Complaint Admit Date SHELTER LAB WORK April 05, 2024 5:00am SHELTER LAB WORK April 23, 2024 4:00am SHELTER LABWORK May 03, 2024 5:00am NEW CONCERN May 13, 2024 3:32pm LABWORK May 13, 2024 9:45pm LABWORK May 31, 2024 5:0 0am LABWORK June 16, 2024 5:00 am LABWORK July 05, 2024 5:0 0am NEW CONCERN July 06, 2024 2:2 6pm Chief Complaint Admit Date SHELTER LAB WORK April 05, 2024 5:00am SHELTER LAB WORK April 23, 2024 4:00am SHELTER LABWORK May 03, 2024 5:00am NEW CONCERN May 13, 2024 3:32pm LABWORK May 13, 2024 9:45pm LABWORK May 31, 2024 5:0 0am LABWORK June 16, 2024 5:00 am LABWORK July 05, 2024 5:0 0am NEW CONCERN July 06, 2024 2:2 6pm LABWORK July 07, 2024 5:0 0am Chief Complaint Admit Date SHELTER LAB WORK April 05, 2024 5:00am SHELTER LAB WORK April 23, 2024 4:00am SHELTER LABWORK May 03, 2024 5:00am NEW CONCERN May 13, 2024 3:32pm LABWORK May 13, 2024 9:45pm LABWORK May 31, 2024 5:0 0am LABWORK June 16, 2024 5:00 am LABWORK July 05, 2024 5:0 0am NEW CONCERN July 06, 2024 2:2 6pm LABWORK July 07, 2024 5:0 0am LABWORK July 08, 2024 12: 00pm Chief Complaint Admit Date SHELTER LAB WORK April 23, 2024 4:00am SHELTER LABWORK May 03, 2024 5:00am NEW CONCERN May 13, 2024 3:32pm LABWORK May 13, 2024 9:45pm LABWORK May 31, 2024 5:0 0am LABWORK June 16, 2024 5:00 am LABWORK July 05, 2024 5:0 0am NEW CONCERN July 06, 2024 2:2 6pm LABWORK July 07, 2024 5:0 0am LABWORK July 08, 2024 12: 00pm SHELTER LAB WORK August 02, 2024 4:0 0am UTI, DIARRHEA, BLADDER FISTULA August 06, 2024 2:19pm Chief Complaint Admit Date SHELTER LAB WORK April 23, 2024 4:00am SHELTER LABWORK May 03, 2024 5:00am NEW CONCERN May 13, 2024 3:32pm LABWORK May 13, 2024 9:45pm LABWORK May 31, 2024 5:0 0am LABWORK June 16, 2024 5:00 am LABWORK July 05, 2024 5:0 0am NEW CONCERN July 06, 2024 2:2 6pm LABWORK July 07, 2024 5:0 0am LABWORK July 08, 2024 12: 00pm SHELTER LAB WORK August 02, 2024 4:0 0am UTI, DIARRHEA, BLADDER FISTULA August 06, 2024 2:19pm LEFT ULNA August 13, 2024 2:06p m Room 4 August 13, 2024 2:32p m Chief Complaint Admit Date SHELTER LAB WORK April 23, 2024 4:00am SHELTER LABWORK May 03, 2024 5:00am NEW CONCERN May 13, 2024 3:32pm LABWORK May 13, 2024 9:45pm LABWORK May 31, 2024 5:0 0am LABWORK June 16, 2024 5:00 am LABWORK July 05, 2024 5:0 0am NEW CONCERN July 06, 2024 2:2 6pm LABWORK July 07, 2024 5:0 0am LABWORK July 08, 2024 12: 00pm SHELTER LAB WORK August 02, 2024 4:0 0am UTI, DIARRHEA, BLADDER FISTULA August 06, 2024 2:19pm LEFT ULNA August 13, 2024 2:06p m Room August 13, 2024 2:32p m LEFT ULNA August 18, 2024 2:33p m Room 4 August 18, 2024 2:51p m Reason for Visit Admit Date Fall August 13, 2024 2:06p m Fx distal ulna-closed August 13, 2024 2:0 6pm Health Concerns Infection Onset Date Last Indicated [...] incontinence Procedures CONSULT TO URO GYNECOLOGY OFFICE/OUTPATIENT [facility] 60-74 MINUTES Jayde Hebert MD [address] [place] [address] Referral ID Status Reason Start Date Expiration Date Visits Requested Visits Authorized [id number] Authorized PCP Requested Referral Auto-Generate d Referral 08/30/2021 11/28/2021 1 1 Specialty Diagnoses / Procedures Referred By Contac t Referred To Contact Infectious Diseases Diagnoses Recurrent UTI History of ESBL E. coli infection Procedures CONSULT TO INFECTIOUS DISEASES OFFICE/OUTPATIENT [facility] 60-74 MINUTES Basilia Hernández MD [address] [address] Referral ID Status Reason Start Date Expiration Date Visits Requested Visits Authorized [id number] Authorized PCP Requested Referral 09/26/2021 09/26/2022 1 1 Specialty Diagnoses / Procedures Referred By Contac t Referred To Contact CT IMAGING Diagnoses Iron deficiency anemia due to chronic blood loss Bilateral hip pain Generalized abdominal pain Abdominal bloating Personal history of breast cancer Occult blood in stools Procedures CT CHEST W IVCON DIAGNOSTIC COMPUTED TOMOGRAPHY THORAX W/CONTRAST Cassidy Arreola APRN.TRAINING PROGRAM DEVELOPER [address] [place] [address] [place] [address] Referral ID Status Reason Start Date Expiration Date Visits Requested Visits Authorized [id number] Authorized Auto-Generat ed Referral 4 03/25/2025 1 1 Specialty Diagnoses / Procedures Referred By Contac t Referred To Contact CT IMAGING Diagnoses Iron deficiency anemia due to chronic blood loss Bilateral hip pain Generalized abdominal pain Abdominal bloating Personal history of breast cancer Occult blood in stools Procedures CT ABD/PEL W IVCON CT ABD & PELVIS W/CONTRAST Cassidy Arreola APRN.TRAINING PROGRAM DEVELOPER [address] [place] [address] [place] [address] Referral ID Status Reason Start Date Expiration Date Visits Requested Visits Authorized [id number] Authorized Auto-Generat ed Referral 4 03/25/2025 1 1 Specialty Diagnoses / Procedures Referred By Michael t Referred To Contact XR IMAGING Diagnoses Bilateral hip pain Procedures XR HIP BILATERAL 5V PEL/AP/LAT EACH HIP RADEX HIPS BILATERAL WITH PELVIS MINIMUM 5 VIEWS Cassidy Arreola APRN.TRAINING PROGRAM DEVELOPER [address] [place] [address] [place] [address] Referral ID Status Reason Start Date Expiration Date Visits Requested Visits Authorized [id number] New Request Auto-Generat ed Referral 4 03/25/2025 1 1 Medications Administered Section Inactive Administered [...] ized section and content) DATE CREATED AUTHOR 10/21/2019 [facility] DATE CREATED AUTHOR AUTHOR'S ORGANIZ ATION 08/28/2021 [facility] DATE CREATED AUTHOR AUTHOR'S ORGANIZ ATION 01/07/2022 [facility] DATE CREATED AUTHOR AUTHOR'S ORGANIZ ATION 06/19/2024 [facility] DATE CREATED AUTHOR AUTHOR'S ORGANIZ ATION 08/19/2024 [facility] Source Comments (unrecognize d section and content) In the event this informatio n is protected by the Federal Confidentiality of Alcohol and Drug Abuse Patient Records regulations: The Federal rules restrict any use of the information to criminally investigate or prosecute any alcohol or drug abuse patient.[facility] the event this information is protected by the Federal Confidentiality of Alcohol and Drug Abuse Patient Records regulations: The Federal rules restrict any use of the information to criminally investigate or prosecute any alcohol or drug abuse patient.[facility] HospitalIn the event this information is protected by the Federal Confidentiality of Alcohol and Drug Abuse Patient Records regulations: The Federal rules restrict any use of the information to criminally investigate or prosecute any alcohol or drug abuse patient.[facility] HospitalIn the event this information is protected by the Federal Confidentiality of Alcohol and Drug Abuse Patient Records regulations: The Federal rules restrict any use of the information to criminally investigate or prosecute any alcohol or drug abuse patient.[facility] HospitalIn the event this information is protected by the Federal Confidentiality of Alcohol and Drug Abuse Patient Records regulations: The Federal rules restrict any use of the information to criminally investigate or prosecute any alcohol or drug abuse patient.[facility] HospitalIn the event this information is protected by the Federal Confidentiality of Alcohol and Drug Abuse Patient Records regulations: The Federal rules restrict any use of the information to criminally investigate or prosecute any alcohol or drug abuse patient.[facility] HospitalIn the event this information is protected by the Federal Confidentiality of Alcohol and Drug Abuse Patient Records regulations: The Federal rules restrict any use of the information to criminally investigate or prosecute any alcohol or drug abuse patient.[facility] HospitalIn the event this information is protected by the Federal Confidentiality of Alcohol and Drug Abuse Patient Records regulations: The Federal rules restrict any use of the information to criminally investigate or prosecute any alcohol or drug abuse patient.[facility] HospitalIn the event this information is protected by the Federal Confidentiality of Alcohol and Drug Abuse Patient Records regulations: The Federal rules restrict any use of the information to criminally investigate or prosecute any alcohol or drug abuse patient.[facility] HospitalIn the event this information is protected by the Federal Confidentiality of Alcohol and Drug Abuse Patient Records regulations: The Federal rules restrict any use of the information to criminally investigate or prosecute any alcohol or drug abuse patient.[facility] HospitalIn the event this information is protected by the Federal Confidentiality of Alcohol and Drug Abuse Patient Records regulations: The Federal rules restrict any use of the information to criminally investigate or prosecute any alcohol or drug abuse patient.[facility] HospitalIn the event this information is protected by the Federal Confidentiality of Alcohol and Drug Abuse Patient Records regulations: The Federal rules restrict any use of the information to criminally investigate or prosecute any alcohol or drug abuse patient.[facility] HospitalIn the event this information is protected by the Federal Confidentiality of Alcohol and Drug Abuse Patient Records regulations: The Federal rules restrict any use of the information to criminally investigate or prosecute any alcohol or drug abuse patient.[facility] HospitalIn the event this information is protected by the Federal Confidentiality of Alcohol and Drug Abuse Patient Records regulations: The Federal rules restrict any use of the information to criminally investigate or prosecute any alcohol or drug abuse patient.[facility] HospitalIn the event this information is protected by the Federal Confidentiality of Alcohol and Drug Abuse Patient Records regulations: The Federal rules restrict any use of the information to criminally investigate or prosecute any alcohol or drug abuse patient.[facility] HospitalIn the event this information is protected by the Federal Confidentiality of Alcohol and Drug Abuse Patient Records regulations: The Federal rules restrict any use of the information to criminally investigate or prosecute any alcohol or drug abuse patient.[facility] HospitalIn the event this information is protected by the Federal Confidentiality of Alcohol and Drug Abuse Patient Records regulations: The Federal rules restrict any use of the information to criminally investigate or prosecute any alcohol or drug abuse patient.[facility] HospitalIn the event this information is protected by the Federal Confidentiality of Alcohol and Drug Abuse Patient Records regulations: The Federal rules restrict any use of the information to criminally investigate or prosecute any alcohol or drug abuse patient.[facility] HospitalIn the event this information is protected by the Federal Confidentiality of Alcohol and Drug Abuse Patient Records regulations: The Federal rules restrict any use of the information to criminally investigate or prosecute any alcohol or drug abuse patient.[facility] HospitalIn the event this information is protected by the Federal Confidentiality of Alcohol and Drug Abuse Patient Records regulations: The Federal rules restrict any use of the information to criminally investigate or prosecute any alcohol or drug abuse patient.[facility] HospitalIn the event this information is protected by the Federal Confidentiality of Alcohol and Drug Abuse Patient Records regulations: The Federal rules restrict any use of the information to criminally investigate or prosecute any alcohol or drug abuse patient.[facility] HospitalIn the event this information is protected by the Federal Confidentiality of Alcohol and Drug Abuse Patient Records regulations: The Federal rules restrict any use of the information to criminally investigate or prosecute any alcohol or drug abuse patient.[facility] HospitalIn the event this information is protected by the Federal Confidentiality of Alcohol and Drug Abuse Patient Records regulations: The Federal rules restrict any use of the information to criminally investigate or prosecute any alcohol or drug abuse patient.[facility] HospitalIn the event this information is protected by the Federal Confidentiality of Alcohol and Drug Abuse Patient Records regulations: The Federal rules restrict any use of the information to criminally investigate or prosecute any alcohol or drug abuse patient.[facility] HospitalIn the event this information is protected by the Federal Confidentiality of Alcohol and Drug Abuse Patient Records regulations: The Federal rules restrict any use of the information to criminally investigate or prosecute any alcohol or drug abuse patient.[facility] HospitalIn the event this information is protected by the Federal Confidentiality of Alcohol and Drug Abuse Patient Records regulations: The Federal rules restrict any use of the information to criminally investigate or prosecute any alcohol or drug abuse patient.[facility] HospitalIn the event this information is protected by the Federal Confidentiality of Alcohol and Drug Abuse Patient Records regulations: The Federal rules restrict any use of the information to criminally investigate or prosecute any alcohol or drug abuse patient.[facility] HospitalIn the event this information is protected by the Federal Confidentiality of Alcohol and Drug Abuse Patient Records regulations: The Federal rules restrict any use of the information to criminally investigate or prosecute any alcohol or drug abuse patient.[facility] HospitalIn the event this information is protected by the Federal Confidentiality of Alcohol and Drug Abuse Patient Records regulations: The Federal rules restrict any use of the information to criminally investigate or prosecute any alcohol or drug abuse patient.[facility] HospitalIn the event this information is protected by the Federal Confidentiality of Alcohol and Drug Abuse Patient Records regulations: The Federal rules restrict any use of the information to criminally investigate or prosecute any alcohol or drug abuse patient.[facility] HospitalIn the event this information is protected by the Federal Confidentiality of Alcohol and Drug Abuse Patient Records regulations: The Federal rules restrict any use of the information to criminally investigate or prosecute any alcohol or drug abuse patient.[facility] HospitalIn the event this information is protected by the Federal Confidentiality of Alcohol and Drug Abuse Patient Records regulations: The Federal rules restrict any use of the information to criminally investigate or prosecute any alcohol or drug abuse patient.[facility] HospitalIn the event this information is protected by the Federal Confidentiality of Alcohol and Drug Abuse Patient Records regulations: The Federal rules restrict any use of the information to criminally investigate or prosecute any alcohol or drug abuse patient.[facility] HospitalIn the event this information is protected by the Federal Confidentiality of Alcohol and Drug Abuse Patient Records regulations: The Federal rules restrict any use of the information to criminally investigate or prosecute any alcohol or drug abuse patient.[facility] HospitalIn the event this information is protected by the Federal Confidentiality of Alcohol and Drug Abuse Patient Records regulations: The Federal rules restrict any use of the information to criminally investigate or prosecute any alcohol or drug abuse patient.[facility] HospitalIn the event this information is protected by the Federal Confidentiality of Alcohol and Drug Abuse Patient Records regulations: The Federal rules restrict any use of the information to criminally investigate or prosecute any alcohol or drug abuse patient.[facility] HospitalIn the event this information is protected by the Federal Confidentiality of Alcohol and Drug Abuse Patient Records regulations: The Federal rules restrict any use of the information to criminally investigate or prosecute any alcohol or drug abuse patient.[facility] HospitalIn the event this information is protected by the Federal Confidentiality of Alcohol and Drug Abuse Patient Records regulations: The Federal rules restrict any use of the information to criminally investigate or prosecute any alcohol or drug abuse patient.[facility] HospitalIn the event this information is protected by the Federal Confidentiality of Alcohol and Drug Abuse Patient Records regulations: The Federal rules restrict any use of the information to criminally investigate or prosecute any alcohol or drug abuse patient.[facility] HospitalIn the event this information is protected by the Federal Confidentiality of Alcohol and Drug Abuse Patient Records regulations: The Federal rules restrict any use of the information to criminally investigate or prosecute any alcohol or drug abuse patient.[facility] HospitalIn the event this information is protected by the Federal Confidentiality of Alcohol and Drug Abuse Patient Records regulations: The Federal rules restrict any use of the information to criminally investigate or prosecute any alcohol or drug abuse patient.[facility] HospitalIn the event this information is protected by the Federal Confidentiality of Alcohol and Drug Abuse Patient Records regulations: The Federal rules restrict any use of the information to criminally investigate or prosecute any alcohol or drug abuse patient.[facility] HospitalIn the event this information is protected by the Federal Confidentiality of Alcohol and Drug Abuse Patient Records regulations: The Federal rules restrict any use of the information to criminally investigate or prosecute any alcohol or drug abuse patient.[facility] HospitalIn the event this information is protected by the Federal Confidentiality of Alcohol and Drug Abuse Patient Records regulations: The Federal rules restrict any use of the information to criminally investigate or prosecute any alcohol or drug abuse patient.[facility] HospitalIn the event this information is protected by the Federal Confidentiality of Alcohol and Drug Abuse Patient Records regulations: The Federal rules restrict any use of the information to criminally investigate or prosecute any alcohol or drug abuse patient.[facility] HospitalIn the event this information is protected by the Federal Confidentiality of Alcohol and Drug Abuse Patient Records regulations: The Federal rules restrict any use of the information to criminally investigate or prosecute any alcohol or drug abuse patient.[facility] HospitalIn the event this information is protected by the Federal Confidentiality of Alcohol and Drug Abuse Patient Records regulations: The Federal rules restrict any use of the information to criminally investigate or prosecute any alcohol or drug abuse patient.[facility] HospitalIn the event this information is protected by the Federal Confidentiality of Alcohol and Drug Abuse Patient Records regulations: The Federal rules restrict any use of the information to criminally investigate or prosecute any alcohol or drug abuse patient.[facility] HospitalIn the event this information is protected by the Federal Confidentiality of Alcohol and Drug Abuse Patient Records regulations: The Federal rules restrict any use of the information to criminally investigate or prosecute any alcohol or drug abuse patient.[facility] HospitalIn the event this information is protected by the Federal Confidentiality of Alcohol and Drug Abuse Patient Records regulations: The Federal rules restrict any use of the information to criminally investigate or prosecute any alcohol or drug abuse patient.[facility] HospitalIn the event this information is protected by the Federal Confidentiality of Alcohol and Drug Abuse Patient Records regulations: The Federal rules restrict any use of the information to criminally investigate or prosecute any alcohol or drug abuse patient.[facility] HospitalIn the event this information is protected by the Federal Confidentiality of Alcohol and Drug Abuse Patient Records regulations: The Federal rules restrict any use of the information to criminally investigate or prosecute any alcohol or drug abuse patient.[facility] HospitalIn the event this information is protected by the Federal Confidentiality of Alcohol and Drug Abuse Patient Records regulations: The Federal rules restrict any use of the information to criminally investigate or prosecute any alcohol or drug abuse patient.[facility] HospitalIn the event this information is protected by the Federal Confidentiality of Alcohol and Drug Abuse Patient Records regulations: The Federal rules restrict any use of the information to criminally investigate or prosecute any alcohol or drug abuse patient.[facility] HospitalIn the event this information is protected by the Federal Confidentiality of Alcohol and Drug Abuse Patient Records regulations: The Federal rules restrict any use of the information to criminally investigate or prosecute any alcohol or drug abuse patient.[facility] HospitalIn the event this information is protected by the Federal Confidentiality of Alcohol and Drug Abuse Patient Records regulations: The Federal rules restrict any use of the information to criminally investigate or prosecute any alcohol or drug abuse patient.[facility] HospitalIn the event this information is protected by the Federal Confidentiality of Alcohol and Drug Abuse Patient Records regulations: The Federal rules restrict any use of the information to criminally investigate or prosecute any alcohol or drug abuse patient.[facility] HospitalIn the event this information is protected by the Federal Confidentiality of Alcohol and Drug Abuse Patient Records regulations: The Federal rules restrict any use of the information to criminally investigate or prosecute any alcohol or drug abuse patient.[facility] HospitalIn the event this information is protected by the Federal Confidentiality of Alcohol and Drug Abuse Patient Records regulations: The Federal rules restrict any use of the information to criminally investigate or prosecute any alcohol or drug abuse patient.[facility] HospitalIn the event this information is protected by the Federal Confidentiality of Alcohol and Drug Abuse Patient Records regulations: The Federal rules restrict any use of the information to criminally investigate or prosecute any alcohol or drug abuse patient.[facility] HospitalIn the event this information is protected by the Federal Confidentiality of Alcohol and Drug Abuse Patient Records regulations: The Federal rules restrict any use of the information to criminally investigate or prosecute any alcohol or drug abuse patient.[facility] HospitalIn the event this information is protected by the Federal Confidentiality of Alcohol and Drug Abuse Patient Records regulations: The Federal rules restrict any use of the information to criminally investigate or prosecute any alcohol or drug abuse patient.[facility] HospitalIn the event this information is protected by the Federal Confidentiality of Alcohol and Drug Abuse Patient Records regulations: The Federal rules restrict any use of the information to criminally investigate or prosecute any alcohol or drug abuse patient.[facility] HospitalIn the event this information is protected by the Federal Confidentiality of Alcohol and Drug Abuse Patient Records regulations: The Federal rules restrict any use of the information to criminally investigate or prosecute any alcohol or drug abuse patient.[facility] HospitalIn the event this information is protected by the Federal Confidentiality of Alcohol and Drug Abuse Patient Records regulations: The Federal rules restrict any use of the information to criminally investigate or prosecute any alcohol or drug abuse patient.[facility] HospitalIn the event this information is protected by the Federal Confidentiality of Alcohol and Drug Abuse Patient Records regulations: The Federal rules restrict any use of the information to criminally investigate or prosecute any alcohol or drug abuse patient.[facility] HospitalIn the event this information is protected by the Federal Confidentiality of Alcohol and Drug Abuse Patient Records regulations: The Federal rules restrict any use of the information to criminally investigate or prosecute any alcohol or drug abuse patient.[facility] HospitalIn the event this information is protected by the Federal Confidentiality of Alcohol and Drug Abuse Patient Records regulations: The Federal rules restrict any use of the information to criminally investigate or prosecute any alcohol or drug abuse patient.[facility] HospitalIn the event this information is protected by the Federal Confidentiality of Alcohol and Drug Abuse Patient Records regulations: The Federal rules restrict any use of the information to criminally investigate or prosecute any alcohol or drug abuse patient.[facility] HospitalIn the event this information is protected by the Federal Confidentiality of Alcohol and Drug Abuse Patient Records regulations: The Federal rules restrict any use of the information to criminally investigate or prosecute any alcohol or drug abuse patient.[facility] HospitalIn the event this information is protected by the Federal Confidentiality of Alcohol and Drug Abuse Patient Records regulations: The Federal rules restrict any use of the information to criminally investigate or prosecute any alcohol or drug abuse patient.[facility] HospitalIn the event this information is protected by the Federal Confidentiality of Alcohol and Drug Abuse Patient Records regulations: The Federal rules restrict any use of the information to criminally investigate or prosecute any alcohol or drug abuse patient.[facility] HospitalIn the event this information is protected by the Federal Confidentiality of Alcohol and Drug Abuse Patient Records regulations: The Federal rules restrict any use of the information to criminally investigate or prosecute any alcohol or drug abuse patient.[facility] HospitalIn the event this information is protected by the Federal Confidentiality of Alcohol and Drug Abuse Patient Records regulations: The Federal rules restrict any use of the information to criminally investigate or prosecute any alcohol or drug abuse patient.[facility] HospitalIn the event this information is protected by the Federal Confidentiality of Alcohol and Drug Abuse Patient Records regulations: The Federal rules restrict any use of the information to criminally investigate or prosecute any alcohol or drug abuse patient.[facility] HospitalIn the event this information is protected by the Federal Confidentiality of Alcohol and Drug Abuse Patient Records regulations: The Federal rules restrict any use of the information to criminally investigate or prosecute any alcohol or drug abuse patient.[facility] HospitalIn the event this information is protected by the Federal Confidentiality of Alcohol and Drug Abuse Patient Records regulations: The Federal rules restrict any use of the information to criminally investigate or prosecute any alcohol or drug abuse patient.[facility] HospitalIn the event this information is protected by the Federal Confidentiality of Alcohol and Drug Abuse Patient Records regulations: The Federal rules restrict any use of the information to criminally investigate or prosecute any alcohol or drug abuse patient.[facility] HospitalIn the event this information is protected by the Federal Confidentiality of Alcohol and Drug Abuse Patient Records regulations: The Federal rules restrict any use of the information to criminally investigate or prosecute any alcohol or drug abuse patient.[facility] HospitalIn the event this information is protected by the Federal Confidentiality of Alcohol and Drug Abuse Patient Records regulations: The Federal rules restrict any use of the information to criminally investigate or prosecute any alcohol or drug abuse patient.[facility] HospitalIn the event this information is protected by the Federal Confidentiality of Alcohol and Drug Abuse Patient Records regulations: The Federal rules restrict any use of the information to criminally investigate or prosecute any alcohol or drug abuse patient.[facility] HospitalIn the event this information is protected by the Federal Confidentiality of Alcohol and Drug Abuse Patient Records regulations: The Federal rules restrict any use of the information to criminally investigate or prosecute any alcohol or drug abuse patient.[facility] HospitalIn the event this information is protected by the Federal Confidentiality of Alcohol and Drug Abuse Patient Records regulations: The Federal rules restrict any use of the information to criminally investigate or prosecute any alcohol or drug abuse patient.[facility] HospitalIn the event this information is protected by the Federal Confidentiality of Alcohol and Drug Abuse Patient Records regulations: The Federal rules restrict any use of the information to criminally investigate or prosecute any alcohol or drug abuse patient.[facility] HospitalIn the event this information is protected by the Federal Confidentiality of Alcohol and Drug Abuse Patient Records regulations: The Federal rules restrict any use of the information to criminally investigate or prosecute any alcohol or drug abuse patient.[facility] HospitalIn the event this information is protected by the Federal Confidentiality of Alcohol and Drug Abuse Patient Records regulations: The Federal rules restrict any use of the information to criminally investigate or prosecute any alcohol or drug abuse patient.[facility] HospitalIn the event this information is protected by the Federal Confidentiality of Alcohol and Drug Abuse Patient Records regulations: The Federal rules restrict any use of the information to criminally investigate or prosecute any alcohol or drug abuse patient.[facility] HospitalIn the event this information is protected by the Federal Confidentiality of Alcohol and Drug Abuse Patient Records regulations: The Federal rules restrict any use of the information to criminally investigate or prosecute any alcohol or drug abuse patient.[facility] HospitalIn the event this information is protected by the Federal Confidentiality of Alcohol and Drug Abuse Patient Records regulations: The Federal rules restrict any use of the information to criminally investigate or prosecute any alcohol or drug abuse patient.[facility] HospitalIn the event this information is protected by the Federal Confidentiality of Alcohol and Drug Abuse Patient Records regulations: The Federal rules restrict any use of the information to criminally investigate or prosecute any alcohol or drug abuse patient.[facility] HospitalIn the event this information is protected by the Federal Confidentiality of Alcohol and Drug Abuse Patient Records regulations: The Federal rules restrict any use of the information to criminally investigate or prosecute any alcohol or drug abuse patient.[facility] HospitalIn the event this information is protected by the Federal Confidentiality of Alcohol and Drug Abuse Patient Records regulations: The Federal rules restrict any use of the information to criminally investigate or prosecute any alcohol or drug abuse patient.[facility] HospitalIn the event this information is protected by the Federal Confidentiality of Alcohol and Drug Abuse Patient Records regulations: The Federal rules restrict any use of the information to criminally investigate or prosecute any alcohol or drug abuse patient.[facility] HospitalIn the event this information is protected by the Federal Confidentiality of Alcohol and Drug Abuse Patient Records regulations: The Federal rules restrict any use of the information to criminally investigate or prosecute any alcohol or drug abuse patient.[facility] HospitalIn the event this information is protected by the Federal Confidentiality of Alcohol and Drug Abuse Patient Records regulations: The Federal rules restrict any use of the information to criminally investigate or prosecute any alcohol or drug abuse patient.[facility] HospitalIn the event this information is protected by the Federal Confidentiality of Alcohol and Drug Abuse Patient Records regulations: The Federal rules restrict any use of the information to criminally investigate or prosecute any alcohol or drug abuse patient.[facility] HospitalIn the event this information is protected by the Federal Confidentiality of Alcohol and Drug Abuse Patient Records regulations: The Federal rules restrict any use of the information to criminally investigate or prosecute any alcohol or drug abuse patient.[facility] HospitalIn the event this information is protected by the Federal Confidentiality of Alcohol and Drug Abuse Patient Records regulations: The Federal rules restrict any use of the information to criminally investigate or prosecute any alcohol or drug abuse patient.[facility] HospitalIn the event this information is protected by the Federal Confidentiality of Alcohol and Drug Abuse Patient Records regulations: The Federal rules restrict any use of the information to criminally investigate or prosecute any alcohol or drug abuse patient.[facility] HospitalIn the event this information is protected by the Federal Confidentiality of Alcohol and Drug Abuse Patient Records regulations: The Federal rules restrict any use of the information to criminally investigate or prosecute any alcohol or drug abuse patient.[facility] HospitalIn the event this information is protected by the Federal Confidentiality of Alcohol and Drug Abuse Patient Records regulations: The Federal rules restrict any use of the information to criminally investigate or prosecute any alcohol or drug abuse patient.[facility] HospitalIn the event this information is protected by the Federal Confidentiality of Alcohol and Drug Abuse Patient Records regulations: The Federal rules restrict any use of the information to criminally investigate or prosecute any alcohol or drug abuse patient.[facility] HospitalIn the event this information is protected by the Federal Confidentiality of Alcohol and Drug Abuse Patient Records regulations: The Federal rules restrict any use of the information to criminally investigate or prosecute any alcohol or drug abuse patient.[facility] HospitalIn the event this information is protected by the Federal Confidentiality of Alcohol and Drug Abuse Patient Records regulations: The Federal rules restrict any use of the information to criminally investigate or prosecute any alcohol or drug abuse patient.[facility] HospitalIn the event this information is protected by the Federal Confidentiality of Alcohol and Drug Abuse Patient Records regulations: The Federal rules restrict any use of the information to criminally investigate or prosecute any alcohol or drug abuse patient.[facility] HospitalIn the event this information is protected by the Federal Confidentiality of Alcohol and Drug Abuse Patient Records regulations: The Federal rules restrict any use of the information to criminally investigate or prosecute any alcohol or drug abuse patient.[facility]In the event this information is protected by the Federal Confidentiality of Alcohol and Drug Abuse Patient Records regulations: The Federal rules restrict any use of the information to criminally investigate or prosecute any alcohol or drug abuse patient.[facility]In the event this information is protected by the Federal Confidentiality of Alcohol and Drug Abuse Patient Records regulations: The Federal rules restrict any use of the information to criminally investigate or prosecute any alcohol or drug abuse patient.[facility] HospitalIn the event this information is protected by the Federal Confidentiality of Alcohol and Drug Abuse Patient Records regulations: The Federal rules restrict any use of the information to criminally investigate or prosecute any alcohol or drug abuse patient.[facility]In the event this information is protected by the Federal Confidentiality of Alcohol and Drug Abuse Patient Records regulations: The Federal rules restrict any use of the information to criminally investigate or prosecute any alcohol or drug abuse patient.[facility] HospitalIn the event this information is protected by the Federal Confidentiality of Alcohol and Drug Abuse Patient Records regulations: The Federal rules restrict any use of the information to criminally investigate or prosecute any alcohol or drug abuse patient.[facility]In the event this information is protected by the Federal Confidentiality of Alcohol and Drug Abuse Patient Records regulations: The Federal rules restrict any use of the information to criminally investigate or prosecute any alcohol or drug abuse patient.[facility]In the event this information is protected by the Federal Confidentiality of Alcohol and Drug Abuse Patient Records regulations: The Federal rules restrict any use of the information to criminally investigate or prosecute any alcohol or drug abuse patient.[facility] HospitalIn the event this information is protected by the Federal Confidentiality of Alcohol and Drug Abuse Patient Records regulations: The Federal rules restrict any use of the information to criminally investigate or prosecute any alcohol or drug abuse patient.[facility] HospitalIn the event this information is protected by the Federal Confidentiality of Alcohol and Drug Abuse Patient Records regulations: The Federal rules restrict any use of the information to criminally investigate or prosecute any alcohol or drug abuse patient.[facility]In the event this information is protected by the Federal Confidentiality of Alcohol and Drug Abuse Patient Records regulations: The Federal rules restrict any use of the information to criminally investigate or prosecute any alcohol or drug abuse patient.[facility]In the event this information is protected by the Federal Confidentiality of Alcohol and Drug Abuse Patient Records regulations: The Federal rules restrict any use of the information to criminally investigate or prosecute any alcohol or drug abuse patient.[facility]In the event this information is protected by the Federal Confidentiality of Alcohol and Drug Abuse Patient Records regulations: The Federal rules restrict any use of the information to criminally investigate or prosecute any alcohol or drug abuse patient.[facility]In the event this information is protected by the Federal Confidentiality of Alcohol and Drug Abuse Patient Records regulations: The Federal rules restrict any use of the information to criminally investigate or prosecute any alcohol or drug abuse patient.[facility]In the event this information is protected by the Federal Confidentiality of Alcohol and Drug Abuse Patient Records regulations: The Federal rules restrict any use of the information to criminally investigate or prosecute any alcohol or drug abuse patient.[facility]In the event this information is protected by the Federal Confidentiality of Alcohol and Drug Abuse Patient Records regulations: The Federal rules restrict any use of the information to criminally investigate or prosecute any alcohol or drug abuse patient.[facility]In the event this information is protected by the Federal Confidentiality of Alcohol and Drug Abuse Patient Records regulations: The Federal rules restrict any use of the information to criminally investigate or prosecute any alcohol or drug abuse patient.[facility]In the event this information is protected by the Federal Confidentiality of Alcohol and Drug Abuse Patient Records regulations: The Federal rules restrict any use of the information to criminally investigate or prosecute any alcohol or drug abuse patient.[facility]In the event this information is protected by the Federal Confidentiality of Alcohol and Drug Abuse Patient Records regulations: The Federal rules restrict any use of the information to criminally investigate or prosecute any alcohol or drug abuse patient.[facility]In the event this information is protected by the Federal Confidentiality of Alcohol and Drug Abuse Patient Records regulations: The Federal rules restrict any use of the information to criminally investigate or prosecute any alcohol or drug abuse patient.[facility]In the event this information is protected by the Federal Confidentiality of Alcohol and Drug Abuse Patient Records regulations: The Federal rules restrict any use of the information to criminally investigate or prosecute any alcohol or drug abuse patient.[facility]In the event this information is protected by the Federal Confidentiality of Alcohol and Drug Abuse Patient Records regulations: The Federal rules restrict any use of the information to criminally investigate or prosecute any alcohol or drug abuse patient.[facility]In the event this information is protected by the Federal Confidentiality of Alcohol and Drug Abuse Patient Records regulations: The Federal rules restrict any use of the information to criminally investigate or prosecute any alcohol or drug abuse patient.[facility]In the event this information is protected by the Federal Confidentiality of Alcohol and Drug Abuse Patient Records regulations: The Federal rules restrict any use of the information to criminally investigate or prosecute any alcohol or drug abuse patient.[facility] HospitalIn the event this information is protected by the Federal Confidentiality of Alcohol and Drug Abuse Patient Records regulations: The Federal rules restrict any use of the information to criminally investigate or prosecute any alcohol or drug abuse patient.[facility] HospitalIn the event this information is protected by the Federal Confidentiality of Alcohol and Drug Abuse Patient Records regulations: The Federal rules restrict any use of the information to criminally investigate or prosecute any alcohol or drug abuse patient.[facility] HospitalIn the event this information is protected by the Federal Confidentiality of Alcohol and Drug Abuse Patient Records regulations: The Federal rules restrict any use of the information to criminally investigate or prosecute any alcohol or drug abuse patient.[facility] HospitalIn the event this information is protected by the Federal Confidentiality of Alcohol and Drug Abuse Patient Records regulations: The Federal rules restrict any use of the information to criminally investigate or prosecute any alcohol or drug abuse patient.[facility] HospitalIn the event this information is protected by the Federal Confidentiality of Alcohol and Drug Abuse Patient Records regulations: The Federal rules restrict any use of the information to criminally investigate or prosecute any alcohol or drug abuse patient.[facility] HospitalIn the event this information is protected by the Federal Confidentiality of Alcohol and Drug Abuse Patient Records regulations: The Federal rules restrict any use of the information to criminally investigate or prosecute any alcohol or drug abuse patient.[facility] HospitalIn the event this information is protected by the Federal Confidentiality of Alcohol and Drug Abuse Patient Records regulations: The Federal rules restrict any use of the information to criminally investigate or prosecute any alcohol or drug abuse patient.[facility] HospitalIn the event this information is protected by the Federal Confidentiality of Alcohol and Drug Abuse Patient Records regulations: The Federal rules restrict any use of the information to criminally investigate or prosecute any alcohol or drug abuse patient.[facility] HospitalIn the event this information is protected by the Federal Confidentiality of Alcohol and Drug Abuse Patient Records regulations: The Federal rules restrict any use of the information to criminally investigate or prosecute any alcohol or drug abuse patient.[facility] HospitalIn the event this information is protected by the Federal Confidentiality of Alcohol and Drug Abuse Patient Records regulations: The Federal rules restrict any use of the information to criminally investigate or prosecute any alcohol or drug abuse patient.[facility] HospitalIn the event this information is protected by the Federal Confidentiality of Alcohol and Drug Abuse Patient Records regulations: The Federal rules restrict any use of the information to criminally investigate or prosecute any alcohol or drug abuse patient.[facility] HospitalIn the event this information is protected by the Federal Confidentiality of Alcohol and Drug Abuse Patient Records regulations: The Federal rules restrict any use of the information to criminally investigate or prosecute any alcohol or drug abuse patient.[facility] HospitalIn the event this information is protected by the Federal Confidentiality of Alcohol and Drug Abuse Patient Records regulations: The Federal rules restrict any use of the information to criminally investigate or prosecute any alcohol or drug abuse patient.[facility] Reason for Visit (unrecogniz ed section and content) Reason Comments Established Patient Reason Comments Results urine culture Reason Comments [...] incontinence Procedures CONSULT TO URO GYNECOLOGY OFFICE/OUTPATIENT [facility] 60-74 MINUTES Jayde Hebert MD [address] [place] [address] Referral ID Status Reason Start Date Expiration Date V isits Requested Visits Authorized [id number] Closed PCP Requested Referral Auto-Generated Referral 08/30/2021 11/28/2021 1 1 Reason Comments Anticoagulation Telephone Fu home INR Reason Comments Consult Specialty Diagnoses / Procedures Referred By Contac t Referred To Contact Infectious Diseases Diagnoses Recurrent UTI History of ESBL E. coli infection Procedures CONSULT TO INFECTIOUS DISEASES OFFICE/OUTPATIENT NEW HIGH MDM 60-74 MINUTES Basilia Hernández MD [address] [facility] [address] [place] [address] Referral ID Status Reason Start Date Expiration Date V isits Requested Visits Authorized [id number] Closed PCP Requested Referral 09/26/2021 09/26/2022 1 1 Reason Onset Date Comments Anticoagulation Telephone Fu 10/15/2021 Agustín e INR Result Reason Comments High INR/lab order Reason Comments Release Of Medical Records Reason Comments Patient Question Reason Comments PAC TRANSFER OF CARE Reason Comments Blood Draw (CVAD) Reason Onset Date Comments Wire Strander - Other 12/25/2021 Reason Comments Recurrent UTI Reason Comments Established Patient Last seen 11/09/20 S/P Left ring trigger finger release (09/14 Reason Comments Returning Patient's Call Reason Comments Orders Appointment Reason Comments Results CBC Reason Comments Non-Chemotherapy Treatment Specialty Diagnoses / Procedures Referred By Contac t Referred To Contact Diagnoses 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 Sal Bonilla, DO [address] [facility] [place] [address] [facility] [address] [place] [address] Referral ID Status Reason Start Date Expiration Date V isits Requested Visits Authorized [id number] Authorized 03/24/2022 06/22/2022 99 99 Reason Comments Wire Strander - Other Symptoms Reason Comments Follow Up [...] given.Wants injection today. Reason Comments Follow Up [place] denies cardia c concernsDaughter, Eloisa, concerned about Lasix managementRequires written prescriptions Reason Comments Last Office Visit Note Reason Comments Pain Reason Comments Follow Up TASHIA 12/13/22 CATHY HT N , PAF EKG 09/05/22ECHO 02/04/23 Fall about 3 weeks ago Reason Comments Established Patient Pain Reason Comments Established Patient Follow Up Injections Reason Comments Orders Compression stocking s Reason Comments PMR Reason Comments Follow Up Reason Onset Date Comments SPP Inflammatory Conditions - Treatment Referral 07/04/2023 [employer] Insurance Authorization 07/04/2023 ARTEMIO appro bobby Reason Comments Medication Problem Reason Comments Orders Specialty Diagnoses / Procedures Referred By Contac t Referred To Contact [facility] Diagnoses Rheumatoid arthritis involving multiple sites with positive rheumatoid factor (HCC) Procedures INJECTION, RENFLEXIS Thalia Monterroso MD [address] [place] [address] [address] [facility] [address] [place] [address] Referral ID Status Reason Start Date Expiration Date V isits Requested Visits Authorized [id number] Authorized 07/16/2023 03/16/2024 99 99 Specialty Diagnoses / Procedures Referred By Contac t Referred To Contact [facility] Diagnoses Rheumatoid arthritis involving multiple sites with positive rheumatoid factor (HCC) Procedures INJECTION, RENFLEXIS Thalia Monterroso MD [address] [place] [address] [facility] [address] [place] [address] Reason Comments Joint Pain Specialty Diagnoses / Procedures Referred By Contac t Referred To Contact Diagnoses Senile osteoporosis Thalia Monterroso MD [address] [place] [address] [facility] [address] [address] Referral ID Status Reason Start Date Expiration Date V isits Requested Visits Authorized [id number] Authorized 11/14/2023 02/12/2024 99 99 Reason Comments Established Patient Specialty Diagnoses / Procedures Referred By Contac t Referred To Contact Diagnoses 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 Cassidy Arreola APRN.TRAINING PROGRAM DEVELOPER [address] [place] [address] [facility] [address] [place] [address] Referral ID Status Reason Start Date Expiration Date V isits Requested Visits Authorized [id number] Authorized 02/24/2024 05/24/2024 99 99 Specialty Diagnoses / Procedures Referred By [facility] Referred To Contact Diagnoses 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 Cassidy Arreola APRN.TRAINING PROGRAM DEVELOPER [address] [place] [address] [facility] [address] [place] [address] Specialty Diagnoses / Procedures [facility] To Contact CT IMAGING Diagnoses Iron deficiency anemia due to chronic blood loss Bilateral hip pain Generalized abdominal pain Abdominal bloating Personal history of breast cancer Occult blood in stools Procedures CT CHEST W IVCON DIAGNOSTIC COMPUTED TOMOGRAPHY THORAX W/CONTRAST Cassidy Arreola APRN.TRAINING PROGRAM DEVELOPER [address] [place] [address] [place] [address] Referral ID Status Reason Start Date Expiration Date V isits Requested Visits Authorized [id number] Closed Auto-Generate d Referral 02/24/2024 03/25/2025 [address] Specialty Diagnoses / Procedures [facility] Ref[facility] To Contact [facility] Diagnoses Iron deficiency anemia due to chronic blood loss Bilateral hip pain Generalized abdominal pain Abdominal bloating Personal history of breast cancer Occult blood in stools Procedures CT CHEST W IVCON DIAGNOSTIC COMPUTED TOMOGRAPHY THORAX W/CONTRAST Cassidy Arreola APRN.TRAINING PROGRAM DEVELOPER [address] [place] [address] [place] [address] Reason Comments Joint Pain Care Teams (unrecognized sec tion and content) Ged Preparation Teacher Relationship Specialty Start Date End Date Galina Iraheta MD [address] [facility] [place] [address] PCP - General Internal Medicine 01/15/16 13, Pharmacist [phone] [place] [address] Pharmacist Pharmacy 08/22/20 Ged Preparation Teacher Relationship Specialty Start Date End Date Galina Iraheta MD [address] [facility] [place] [address] PCP - General Internal Medicine 01/15/16 13, Pharmacist [phone] [place] [address] Pharmacist Pharmacy 08/22/20 Ged Preparation Teacher Relationship Specialty Start Date End Date Galina Iraheta MD [address] [place] [address] PCP - General Internal Medicine 01/15/16 13, Pharmacist [phone] [place] [address], [place] [address] Pharmacist Pharmacy 08/22/20 Ged Preparation Teacher Relationship Specialty Start Date End Date Galina Iraheta MD [address] [place] [address] PCP - General Internal Medicine 01/15/16 13, Pharmacist [phone] [place] [address], [place] [address] Pharmacist Pharmacy 08/22/20 Ged Preparation Teacher Relationship Specialty Start Date End Date Galina Iraheta MD [address] [facility] [place] [address] PCP - General Internal Medicine 01/15/16 13, Pharmacist [phone] [place] [address] Pharmacist Pharmacy 08/22/20 Ged Preparation Teacher Relationship Specialty Start Date End Date Galina Iraheta MD [address] [place] [address] PCP - General Internal Medicine 01/15/16 13, Pharmacist [phone] [place] [address] Pharmacist Pharmacy 08/22/20 Ged Preparation Teacher Relationship Specialty Start Date End Date Galina Iraheta MD [address] [facility] [place] [address] PCP - General Internal Medicine 01/15/16 13, Pharmacist [phone] [place] [address] Pharmacist Pharmacy 08/22/20 Ged Preparation Teacher Relationship Specialty Start Date End Date Galina Iraheta MD [address] [facility] [place] [address] PCP - General Internal Medicine 01/15/16 13, Pharmacist [phone] [facility] [address] Pharmacist Pharmacy 08/22/20 Ged Preparation Teacher Relationship Specialty Start Date End Date Galina Iraheta MD [address] [facility] [place] [address] PCP - General Internal Medicine 01/15/16 13, Pharmacist [phone] [place] [address] Pharmacist Pharmacy 08/22/20 Ged Preparation Teacher Relationship Specialty Start Date End Date Galina Iraheta MD [address] [facility] [place] [address] PCP - General Internal Medicine 01/15/16 13, Pharmacist [phone] [place] [address] Pharmacist Pharmacy 08/22/20 Ged Preparation Teacher Relationship Specialty Start Date End Date Galina Iraheta MD [address] [facility] [place] [address] PCP - General Internal Medicine 01/15/16 13, Pharmacist [phone] [place] [address] Pharmacist Pharmacy 08/22/20 Ged Preparation Teacher Relationship Specialty Start Date End Date Galina Iraheta MD [address] [facility] [place] [address] PCP - General Internal Medicine 01/15/16 13, Pharmacist [phone] [facility] [place] [address] Pharmacist Pharmacy 08/22/20 Ged Preparation Teacher Relationship Specialty Start Date End Date Galina Iraheta MD [address] [facility] [place] [address] PCP - General Internal Medicine 01/15/16 13, Pharmacist [phone] [place] [address] Pharmacist Pharmacy 08/22/20 Ged Preparation Teacher Relationship Specialty Start Date End Date Galina Iraheta MD [address] [facility] [place] [address] PCP - General Internal Medicine 01/15/16 13, Pharmacist [phone] [place] [address] Pharmacist Pharmacy 08/22/20 Ged Preparation Teacher Relationship Specialty Start Date End Date Galina Iraheta MD [address] [facility] [place] [address] PCP - General Internal Medicine 01/15/16 13, Pharmacist [phone] [place] [address] Pharmacist Pharmacy 08/22/20 Ged Preparation Teacher Relationship Specialty Start Date End Date Galina Iraheta MD [address] [facility] [place] [address] PCP - General Internal Medicine 01/15/16 13, Pharmacist [phone] [place] [address] Pharmacist Pharmacy 08/22/20 Ged Preparation Teacher Relationship Specialty Start Date End Date Galina Iraheta MD [address] [facility] [place] [address] PCP - General Internal Medicine 01/15/16 13, Pharmacist [phone] [place] [address] Pharmacist Pharmacy 08/22/20 Ged Preparation Teacher Relationship Specialty Start Date End Date Galina Iraheta MD [address] [facility] [place] [address] PCP - General Internal Medicine 01/15/16 13, Pharmacist [phone] [place] [address], [place] [address] Pharmacist Pharmacy 08/22/20 Ged Preparation Teacher Relationship Specialty Start Date End Date Galina Iraheta MD [address] [place] [address] PCP - General Internal Medicine 01/15/16 13, Pharmacist [phone] [place] [address] Pharmacist Pharmacy 08/22/20 Ged Preparation Teacher Relationship Specialty Start Date End Date Galina Iraheta MD [address] [place] [address] PCP - General Internal Medicine 01/15/16 13, Pharmacist [phone] [place] [address], [place] [address] Pharmacist Pharmacy 08/22/20 Ged Preparation Teacher Relationship Specialty Start Date End Date Galina Iraheta MD [address] [place] [address] PCP - General Internal Medicine 01/15/16 13, Pharmacist [phone] [place] [address], [place] [address] Pharmacist Pharmacy 08/22/20 Ged Preparation Teacher Relationship Specialty Start Date End Date Galina Iraheta MD [address] [place] [address] PCP - General Internal Medicine 01/15/16 13, Pharmacist [phone] [place] [address] Pharmacist Pharmacy 08/22/20 Ged Preparation Teacher Relationship Specialty Start Date End Date Galina Iraheta MD [address] [place] [address] PCP - General Internal Medicine 01/15/16 13, Pharmacist [phone] [place] [address] Pharmacist Pharmacy 08/22/20 Ged Preparation Teacher Relationship Specialty Start Date End Date Galina Iraheta MD [address] [facility] [place] [address] PCP - General Internal Medicine 01/15/16 13, Pharmacist [phone] [place] [address] Pharmacist Pharmacy 08/22/20 Ged Preparation Teacher Relationship Specialty Start Date End Date Galina Iraheta MD [address] [facility] [place] [address] PCP - General Internal Medicine 01/15/16 13, Pharmacist [phone] [place] [address] Pharmacist Pharmacy 08/22/20 Ged Preparation Teacher Relationship Specialty Start Date End Date Galina Iraheta MD [address] [facility] [place] [address] PCP - General Internal Medicine 01/15/16 13, Pharmacist [phone] [place] [address] Pharmacist Pharmacy 08/22/20 Ged Preparation Teacher Relationship Specialty Start Date End Date Galina Iraheta MD [address] [facility] [place] [address] PCP - General Internal Medicine 01/15/16 13, Pharmacist [phone] [place] [address] Pharmacist Pharmacy 08/22/20 Ged Preparation Teacher Relationship Specialty Start Date End Date Glaina Iraheta MD [address] [facility] [place] [address] PCP - General Internal Medicine 01/15/16 13, Pharmacist [phone] [facility] [place] [address] Pharmacist Pharmacy 08/22/20 Ged Preparation Teacher Relationship Specialty Start Date End Date Galina Iraheta MD [address] [facility] [place] [address] PCP - General Internal Medicine 01/15/16 13, Pharmacist [phone] [place] [address] Pharmacist Pharmacy 08/22/20 Ged Preparation Teacher Relationship Specialty Start Date End Date Galina Iraheta MD [address] [place] [address] PCP - General Internal Medicine 01/15/16 Ged Preparation Teacher Relationship Specialty Start Date End Date Galina Iraheta MD [address] [place] [address] PCP - General Internal Medicine 01/15/16 Ged Preparation Teacher Relationship Specialty Start Date End Date Galina Iraheta MD [address] [facility] [place] [address] PCP - General Internal Medicine 01/15/16 Ged Preparation Teacher Relationship Specialty Start Date End Date Galina Iraheta MD [address] [facility] [place] [address] PCP - General Internal Medicine 01/15/16 Ged Preparation Teacher Relationship Specialty Start Date End Date Galina Iraheta MD [address] [place] [address] PCP - General Internal Medicine 01/15/16 Ged Preparation Teacher Relationship Specialty Start Date End Date Galina Iraheta MD [address] [place] [address] PCP - General Internal Medicine 01/15/16 Ged Preparation Teacher Relationship Specialty Start Date End Date Galina Iraheta MD [address] [place] [address] PCP - General Internal Medicine 01/15/16 Ged Preparation Teacher Relationship Specialty Start Date End Date Galina Iraheta MD [address] [place] [address] PCP - General Internal Medicine 01/15/16 Ged Preparation Teacher Relationship Specialty Start Date End Date Galina Iraheta MD [address] [place] [address] PCP - General Internal Medicine 01/15/16 Ged Preparation Teacher Relationship Specialty Start Date End Date Galina Iraheta MD [address] [place] [address] PCP - General Internal Medicine 01/15/16 Sal Bonilla, DO [address] [place] [address] Hematology/Oncology 03/22/22 Ged Preparation Teacher Relationship Specialty Start Date End Date Galina Iraheta MD [address] [place] [address] PCP - General Internal Medicine 01/15/16 Sal Bonilla, DO [address] [place] [address] Hematology/Oncology 03/22/22 Ged Preparation Teacher Relationship Specialty Start Date End Date Galina Iraheta MD [address] [place] [address] PCP - General Internal Medicine 01/15/16 Sal Bonilla, DO [address] [place] [address] Hematology/Oncology 03/22/22 Team Status: Active Member Role Status Dates Dr. Galina Iraheta MD Family Provider Active Dr. Galina Iraheta MD Primary Care Provider Active Team Status: Inactive Member Role Status Dates Dr. Galina Iraheta MD Primary Care Provider Active Galina Horner SAP BW CONSULTANT, SAP BW CONSULTANT-C Attending Provider Active Team Status: Inactive Member Role Status Dates Dr. Galina Iraheta MD Primary Care Provider Active Alejo Salcido MD Attending Provider Active Team Status: Inactive Member Role Status Dates Dr. Galina Iraheta MD Primary Care Provider Active Dr. Howie Brothers DO Attending Provider, Emergency Provide r Active Team Status: Inactive Member Role Status Dates Dr. Galina Iraheta MD Primary Care Provider Active Alejo Salcido MD Attending Provider, Referring Provi gary Active Team Status: Inactive Member Role Status Dates Dr. Galina Iraheta MD Primary Care Provider Active Reji Reyna MD Attending Provider Active Team Status: Inactive Member Role Status Dates Dr. Galina Iraheta MD Primary Care Provider Active Galina Horner SAP BW CONSULTANT, SAP BW CONSULTANT-C Attending Provider, Referring Provider Active Team Status: Active Member Role Status Dates Dr. Galina Iraheta MD Primary Care Provider Active Reji Reyna MD Attending Provider Active Ged Preparation Teacher Relationship Specialty Start Date End Date Galina Iraheta MD [address] [place] [address] PCP - General Internal Medicine 01/15/16 Sal Bonilla, DO [address] [place] [address] Hematology/Oncology 03/22/22 Ged Preparation Teacher Relationship Specialty Start Date End Date Galina Iraheta MD [address] [place] [address] PCP - General Internal Medicine 01/15/16 Sal Bonilla, DO [address] [place] [address] Hematology/Oncology 03/22/22 Ged Preparation Teacher Relationship Specialty Start Date End Date Galina Iraheta MD [address] [place] [address] PCP - General Internal Medicine 01/15/16 Sal Bonilla, DO [address] [place] [address] Hematology/Oncology 03/22/22 Ged Preparation Teacher Relationship Specialty Start Date End Date Galina Iraheta MD [address] [place] [address] PCP - General Internal Medicine 01/15/16 Sal Bonilla, DO [address] [place] [address] Hematology/Oncology 03/22/22 Ged Preparation Teacher Relationship Specialty Start Date End Date Galina Iraheta MD [address] [place] [address] PCP - General Internal Medicine 01/15/16 Sal Bonilla, DO [address] [facility] [place] [address] Hematology/Oncology 03/22/22 Ged Preparation Teacher Relationship Specialty Start Date End Date Galina Iraheta MD [address] [place] [address] PCP - General Internal Medicine 01/15/16 Sal Bonilla, DO [address] [place] [address] Hematology/Oncology 03/22/22 Ged Preparation Teacher Relationship Specialty Start Date End Date Galina Iraheta MD [address] [place] [address] PCP - General Internal Medicine 01/15/16 Sal Bonilla, DO [address] [facility] [place] [address] Hematology/Oncology 03/22/22 Team Status: Inactive Member Role Status Dates Dr. Galina Iraheta MD Primary Care Provider Active Reji POPE MD Attending Provider Active Team Status: Inactive Member Role Status Dates Dr. Galina Iraheta MD Primary Care Provider Active Alejo PPOE MD Attending Provider, Referring Mitul osorio Active Team Status: Inactive Member Role Status Dates Dr. Galina Iraheta MD Primary Care Provider Active Alejo POPE MD Attending Provider Active Team Status: Active Member Role Status Dates Dr. Galina Iraheta MD Primary Care Provider Active Reji POPE MD Attending Provider Active Ged Preparation Teacher Relationship Specialty Start Date End Date Galina Iraheta MD [address] [place] [address] PCP - General Internal Medicine 01/15/16 Sal Bonilla DO [address] [place] [address] Hematology/Oncology 03/22/22 Ged Preparation Teacher Relationship Specialty Start Date End Date Galina Iraheta MD [address] [place] [address] PCP - General Internal Medicine 01/15/16 Sal Bonilla DO [address] [place] [address] Hematology/Oncology 03/22/22 Ged Preparation Teacher Relationship Specialty Start Date End Date Galina Iraheta MD [address] [place] [address] PCP - General Internal Medicine 01/15/16 Sal Bonilla DO [address] [place] [address] Hematology/Oncology 03/22/22 Ged Preparation Teacher Relationship Specialty Start Date End Date Galina Iraheta MD [address] [place] [address] PCP - General Internal Medicine 01/15/16 Sal Bonilla DO [address] [place] [address] Hematology/Oncology 03/22/22 Ged Preparation Teacher Relationship Specialty Start Date End Date Galina Iraheta MD [address] [place] [address] PCP - General Internal Medicine 01/15/16 Sal Bonilla DO [address] [place] [address] Hematology/Oncology 03/22/22 Ged Preparation Teacher Relationship Specialty Start Date End Date Galina Iraheta MD [address] [place] [address] PCP - General Internal Medicine 01/15/16 Sal Bonilla DO [address] [place] [address] Hematology/Oncology 03/22/22 Ged Preparation Teacher Relationship Specialty Start Date End Date Galina Iraheta MD [address] [place] [address] PCP - General Internal Medicine 01/15/16 Sal Bonilla DO [address] [place] [address] Hematology/Oncology 03/22/22 Ged Preparation Teacher Relationship Specialty Start Date End Date Galina Iraheta MD [address] [place] [address] PCP - General Internal Medicine 01/15/16 Sal Bonilla DO [address] [place] [address] Hematology/Oncology 03/22/22 Ged Preparation Teacher Relationship Specialty Start Date End Date Galina Iraheta MD [address] [place] [address] PCP - General Internal Medicine 01/15/16 Sal Bonilla DO [address] [place] [address] Hematology/Oncology 03/22/22 Ged Preparation Teacher Relationship Specialty Start Date End Date Reji Reyna MD [address] [place] [address] PCP - General Internal Medicine 02/24/23 Sal Bonilla DO [address] [place] [address] Hematology/Oncology 03/22/22 Ged Preparation Teacher Relationship Specialty Start Date End Date Reji Reyna MD [address] [place] [address] PCP - General Internal Medicine 02/24/23 Sal Bonilla DO [address] [place] [address] Hematology/Oncology 03/22/22 Ged Preparation Teacher Relationship Specialty Start Date End Date Reji Reyna MD [address] [place] [address] PCP - General Internal Medicine 02/24/23 Sal Bonilla DO [address] [place] [address] Hematology/Oncology 03/22/22 Ged Preparation Teacher Relationship Specialty Start Date End Date Reji Reyna MD [address] [place] [address] PCP - General Internal Medicine 02/24/23 Sal Bonilla DO [address] [facility] [place] [address] Hematology/Oncology 03/22/22 Ged Preparation Teacher Relationship Specialty Start Date End Date Reji Reyna MD [address] [place] [address] PCP - General Internal Medicine 02/24/23 Sal Bonilla DO [address] [place] [address] Hematology/Oncology 03/22/22 Ged Preparation Teacher Relationship Specialty Start Date End Date Reji Reyna MD [address] [place] [address] PCP - General Internal Medicine 02/24/23 Sal Bonilla DO [address] [place] [address] Hematology/Oncology 03/22/22 Ged Preparation Teacher Relationship Specialty Start Date End Date Reji Reyna MD [address] [place] [address] PCP - General Internal Medicine 02/24/23 Sal Bonilla DO [address] [place], [place] [address] [phone] Hematology/Oncology 03/22/22 Ged Preparation Teacher Relationship Specialty Start Date End Date Reji Reyna MD [address] [place], [place] [address] PCP - General Internal Medicine 02/24/23 Sal Bonilla DO [address] [place] [facility] [place] [address] Hematology/Oncology 03/22/22 Ged Preparation Teacher Relationship Specialty Start Date End Date Reji Reyna MD [address] [place] [address] PCP - General Internal Medicine 02/24/23 Sal Bonilla DO [address] [place] [facility] [place] [address] Hematology/Oncology 03/22/22 Ged Preparation Teacher Relationship Specialty Start Date End Date Reji Reyna MD [address] [place] [address] PCP - General Internal Medicine 02/24/23 Sal Bonilla DO [address] [place] [facility] [place] [address] Hematology/Oncology 03/22/22 Ged Preparation Teacher Relationship Specialty Start Date End Date Reji Reyna MD [address] [place] [address] PCP - General Internal Medicine 02/24/23 Sal Bonilla DO [address] [place] [facility] [place] [address] Hematology/Oncology 03/22/22 Ged Preparation Teacher Relationship Specialty Start Date End Date Reji Reyna MD [address] [place] [address] PCP - General Internal Medicine 02/24/23 Sal Bonilla DO [address] [place] [address] Hematology/Oncology 03/22/22 Ged Preparation Teacher Relationship Specialty Start Date End Date Reji Reyna MD [address] [place] [address] PCP - General Internal Medicine 02/24/23 Sal Bonilla DO [address] [place] [address] Hematology/Oncology 03/22/22 Ged Preparation Teacher Relationship Specialty Start Date End Date Reji Reyna MD [address] [place] [address] PCP - General Internal Medicine 02/24/23 Sal Bonilla DO [address] [place] [address] Hematology/Oncology 03/22/22 Ged Preparation Teacher Relationship Specialty Start Date End Date Reji Reyna MD [address] [place] [address] PCP - General Internal Medicine 02/24/23 Sal Bonilla DO [address] [place] [address] Hematology/Oncology 03/22/22 Ged Preparation Teacher Relationship Specialty Start Date End Date Reji Reyna MD [address] [place] [address] PCP - General Internal Medicine 02/24/23 Sal Bonilla DO [address] [place] [address] Hematology/Oncology 03/22/22 Ged Preparation Teacher Relationship Specialty Start Date End Date Reji Reyna MD [address] [place] [address] PCP - General Internal Medicine 02/24/23 Sal Bonilla DO [address] [facility] [place] [address] Hematology/Oncology 03/22/22 Ged Preparation Teacher Relationship Specialty Start Date End Date Reji Reyna MD [address] [place] [address] PCP - General Internal Medicine 02/24/23 Sal Bonilla DO [address] [place] [address] Hematology/Oncology 03/22/22 Ged Preparation Teacher Relationship Specialty Start Date End Date Reji Reyna MD [address] [place] [address] PCP - General Internal Medicine 02/24/23 Sal Bonilla DO [address] [facility] [place] [address] Hematology/Oncology 03/22/22 Ged Preparation Teacher Relationship Specialty Start Date End Date Reji Reyna MD [address] [place] [address] PCP - General Internal Medicine 02/24/23 Sal Bonilla DO [address] [place] [address] Hematology/Oncology 03/22/22 Ged Preparation Teacher Relationship Specialty Start Date End Date Reji Reyna MD [address] [place] [address] PCP - General Internal Medicine 02/24/23 Sal Bonilla DO [address] [place] [address] Hematology/Oncology 03/22/22 Ged Preparation Teacher Relationship Specialty Start Date End Date Reji Reyna MD [address] [place] [address] PCP - General Internal Medicine 02/24/23 Sal Bonilla DO [address] [place] [address] Hematology/Oncology 03/22/22 Ged Preparation Teacher Relationship Specialty Start Date End Date Reji Reyna MD [address] [place] [address] PCP - General Internal Medicine 02/24/23 Sal Bonilla DO [address] [place] [address] Hematology/Oncology 03/22/22 Ged Preparation Teacher Relationship Specialty Start Date End Date Galina Iraheta MD [address] [place] [address] PCP - General Internal Medicine 01/15/16 02/23/23 13, Pharmacist [id number] [place], [place] [id number] Pharmacist Pharmacy 08/22/20 11/04/21 Ged Preparation Teacher Relationship Specialty Start Date End Date Galina Iraheta MD [address] [place] [address] PCP - General Internal Medicine 01/15/16 02/23/23 13, Pharmacist [id number] [place], [place] [id number] Pharmacist Pharmacy 08/22/20 11/04/21 Ged Preparation Teacher Relationship Specialty Start Date End Date Galina Iraheta MD [address] [place] [address] PCP - General Internal Medicine 01/15/16 02/23/23 Ged Preparation Teacher Relationship Specialty Start Date End Date Reji Reyna MD [address] [place] [address] PCP - General Internal Medicine 02/24/23 Sal Bonilla DO [address] [place] [address] Hematology/Oncology 03/22/22 Ged Preparation Teacher Relationship Specialty Start Date End Date Reji Reyna MD [address] [place] [address] PCP - General Internal Medicine 02/24/23 Sal Bonilla DO [address] [facility] [place] [address] Hematology/Oncology 03/22/22 Ged Preparation Teacher Relationship Specialty Start Date End Date Reji Reyna MD [address] [place] [address] PCP - General Internal Medicine 02/24/23 Sal Bonilla DO [address] [facility] [place] [address] Hematology/Oncology 03/22/22 Ged Preparation Teacher Relationship Specialty Start Date End Date Reji Reyna MD [address] [place] [address] PCP - General Internal Medicine 02/24/23 Sal Bonilla DO [address] [facility] [place] [address] Hematology/Oncology 03/22/22 Ged Preparation Teacher Relationship Specialty Start Date End Date Reji Reyna MD [address] [place] [address] PCP - General Internal Medicine 02/24/23 Sal Bonilla DO [address] [facility] [place] [address] Hematology/Oncology 03/22/22 Ged Preparation Teacher Relationship Specialty Start Date End Date Reji Reyna MD [address] [place] [address] PCP - General Internal Medicine 02/24/23 Sal Bonilla DO [address] [facility] [place] [address] Hematology/Oncology 03/22/22 Ged Preparation Teacher Relationship Specialty Start Date End Date Reji Reyna MD [address] [place], [place] [address]- PCP - General Internal Medicine 02/24/23 Sal Bonilla DO [address] [place] [address] Hematology/Oncology 03/22/22 Ged Preparation Teacher Relationship Specialty Start Date End Date Reji Reyna MD [address] [place] [address] PCP - General Internal Medicine 02/24/23 Sal Bonilla DO [address] [place] [address] Hematology/Oncology 03/22/22 Ged Preparation Teacher Relationship Specialty Start Date End Date Reji Reyna MD [address] [place] [address] PCP - General Internal Medicine 02/24/23 Sal Bonilla DO [address] [facility] [place] [address] Hematology/Oncology 03/22/22 Ged Preparation Teacher Relationship Specialty Start Date End Date Reji Reyna MD [address] [place] [address] PCP - General Internal Medicine 02/24/23 Sal Bonilla DO [address] [place] [address] Hematology/Oncology 03/22/22 Ged Preparation Teacher Relationship Specialty Start Date End Date Reji Reyna MD [address] [place], [place] [address]- PCP - General Internal Medicine 02/24/23 Sal Bonilla DO [address] [place], [place] [address] Hematology/Oncology 03/22/22 Ged Preparation Teacher Relationship Specialty Start Date End Date Reji Reyna MD [address] [place], [place] [id number] PCP - General Internal Medicine 02/24/23 Sal Bonilla DO [address] [place], [place] [id number] Hematology/Oncology 03/22/22 Team Status: Active Member Role Status Dates Dr. Galina Iraheta MD Primary Care Provider Active Start: March 01, 2024 Reji POPE MD Attending Provider Active Start: March 01, 2024 Team Status: Active Member Role Status Dates Dr. Galina Iraheta MD Primary Care Provider Active Start: March 02, 2024 Reji POPE MD Attending Provider Active Start: March 02, 2024 Team Status: Inactive Member Role Status Dates Dr. Galina Iraheta MD Primary Care Provider Active Start: April 05, 2024 End: April 05, 2024 Reji POPE MD Attending Provider Active Start: April 05, 2024 End: April 05, 2024 Team Status: Inactive Member Role Status Dates Dr. Galina Iraheta MD Primary Care Provider Active Start: April 23, 2024 End: April 23, 2024 Reji POPE MD Attending Provider Active Start: April 23, 2024 End: April 23, 2024 Reji POPE MD Referring Provider Active Start: April 23, 2024 End: April 23, 2024 Team Status: Active Member Role Status Dates Dr. Galina Iraheta MD Primary Care Provider Active Start: May 03, 2024 Reji POPE MD Attending Provider Active Start: May 03, 2024 Team Status: Inactive Member Role Status Dates Dr. Galina Iraheta MD Primary Care Provider Active Start: May 13, 2024 End: May 13, 2024 Galina Horner NP [employer] Attending Provider Active Start: May 13, 2024 End: May 13, 2024 Team Status: Inactive Member Role Status Dates Dr. Galina Iraheta MD Primary Care Provider Active Start: May 13, 2024 End: May 13, 2024 Reji POPE MD Attending Provider Active Start: May 13, 2024 End: May 13, 2024 Team Status: Active Member Role Status Dates Dr. Galina Iraheta MD Primary Care Provider Active Start: May 31, 2024 Reji POPE MD Attending Provider Active Start: May 31, 2024 Team Status: Active Member Role Status Dates Dr. Galina Iraheta MD Primary Care Provider Active Start: June 16, 2024 Reji POPE MD Attending Provider Active Start: June 16, 2024 Team Status: Inactive Member Role Status Dates Dr. Galina Iraheta MD Primary Care Provider Active Start: May 31, 2024 End: May 31, 2024 Reji POPE MD Attending Provider Active Start: May 31, 2024 End: May 31, 2024 Team Status: Active Member Role Status Dates Dr. Galina Iraheta MD Primary Care Provider Active Team Status: Inactive Member Role Status Dates Dr. Galina Iraheta MD Primary Care Provider Active Start: June 16, 2024 End: June 16, 2024 Reji POPE MD Attending Provider Active Start: June 16, 2024 End: June 16, 2024 Team Status: Active Member Role Status Dates Dr. Galina Iraheta MD Primary Care Provider Active Start: July 05, 2024 Reji POPE MD Attending Provider Active Start: July 05, 2024 Team Status: Inactive Member Role Status Dates Dr. Galina Iraheta MD Primary Care Provider Active Start: July 06, 2024 End: July 06, 2024 Dr. Reji Reyna MD Attending Provider Active Start: July 06, 2024 End: July 06, 2024 Team Status: Active Member Role Status Dates Dr. Galina Iraheta MD Primary Care Provider Active Start: July 07, 2024 Reji POPE MD Attending Provider Active Start: July 07, 2024 Team Status: Active Member Role Status Dates Dr. Galina Iraheta MD Primary Care Provider Active Start: July 08, 2024 Reji POPE MD Attending Provider Active Start: July 08, 2024 Team Status: Inactive Member Role Status Dates Dr. Galina Iraheta MD Primary Care Provider Active Start: July 07, 2024 End: July 07, 2024 Reji POPE MD Attending Provider Active Start: July 07, 2024 End: July 07, 2024 Team Status: Inactive Member Role Status Dates Dr. Galina Iraheta MD Primary Care Provider Active Start: July 05, 2024 End: July 05, 2024 Reji POPE MD Attending Provider Active Start: July 05, 2024 End: July 05, 2024 Team Status: Inactive Member Role Status Dates Dr. Galina Iraheta MD Primary Care Provider Active Start: July 08, 2024 End: July 08, 2024 Reji POPE MD Attending Provider Active Start: July 08, 2024 End: July 08, 2024 Team Status: Active Member Role Status Dates Dr. Reji Reyna MD Primary Care Provider Active Team Status: Inactive Member Role Status Dates Dr. Galina Iraheta MD Primary Care Provider Active Start: August 02, 2024 End: August 02, 2024 Reji POPE MD Attending Provider Active Start: August 02, 2024 End: August 02, 2024 Reji POPE MD Referring Provider Active Start: August 02, 2024 End: August 02, 2024 Team Status: Inactive Member Role Status Dates Dr. Hiwot Abdullahi MD Attending Provider Active Start: August 06, 2024 End: August 06, 2024 Dr. Hiwot Abdullahi MD Referring Provider Active Start: August 06, 2024 End: August 06, 2024 Dr. Reji Reyna MD Primary Care Provider Active Start: August 06, 2024 End: August 06, 2024 Team Status: Active Member Role Status Dates Dr. Reji Reyna MD Primary Care Provider Active Start: August 13, 2024 Dr. Reji Reyna MD Referring Provider Active Start: August 13, 2024 OLIVE Waters Attending Provider Active Start: August 13, 2024 Team Status: Inactive Member Role Status Dates Dr. Reji Reyna MD Primary Care Provider Active Start: August 13, 2024 End: August 13, 2024 Dr. Charles Ramos MD Attending Provider Active S tart: August 13, 2024 End: August 13, 2024 Team Status: Inactive Member Role Status Dates Dr. Reji Reyna MD Primary Care Provider Active Start: August 13, 2024 End: August 13, 2024 Dr. Reji Reyna MD Referring Provider Active Start: August 13, 2024 End: August 13, 2024 OLIVE Waters Attending Provider Active Start: August 13, 2024 End: August 13, 2024 Team Status: Active Member Role Status Dates Dr. Reji Reyna MD Primary Care Provider Active Start: August 18, 2024 Dr. Reji Reyna MD Referring Provider Active Start: August 18, 2024 OLIVE Waters Attending Provider Active Start: August 18, 2024 Team Status: Inactive Member Role Status Dates Dr. Reji Reyna MD Primary Care Provider Active Start: August 18, 2024 End: August 18, 2024 Dr. Charles Ramos MD Attending Provider Active S tart: August 18, 2024 End: August 18, 2024 Team Status: Inactive Member Role Status Dates Dr. Reji Reyna MD Primary Care Provider Active Start: August 18, 2024 End: August 18, 2024 Dr. Reji Reyna MD Referring Provider Active Start: August 18, 2024 End: August 18, 2024 OLIVE Waters Attending Provider Active Start: August 18, 2024 End: August 18, 2024 Ged Preparation Teacher Relationship Specialty Start Date End Date Reji Reyna MD [address] [place] [address] PCP - General Internal Medicine 02/24/23 Sal Bonilla DO [address] [place] [address] Hematology/Oncology 03/22/22 Goals (unrecognized section and content) Goals may be documented in a n alternate sectionGoals may be documented in an alternate sectionGoals may be documented in an alternate sectionGoals may be documented in an alternate sectionGoals may be documented in an alternate sectionGoals may be documented in an alternate sectionGoals may be documented in an alternate sectionGoals may be documented in an alternate sectionGoals may be documented in an alternate sectionGoals may be documented in an alternate sectionGoals may be documented in an alternate sectionGoals may be documented in an alternate sectionGoals may be documented in an alternate sectionGoals may be documented in an alternate sectionGoals may be documented in an alternate sectionGoals may be documented in an alternate sectionGoals may be documented in an alternate sectionGoals may be documented in an alternate sectionGoals may be documented in an alternate sectionGoals may be documented in an alternate sectionGoals may be documented in an alternate sectionGoals may be documented in an alternate sectionGoals may be documented in an alternate sectionGoals may be documented in an alternate sectionGoals may be documented in an alternate sectionGoals may be documented in an alternate sectionGoals may be documented in an alternate sectionGoals may be documented in an alternate sectionGoals may be documented in an alternate sectionGoals may be documented in an alternate sectionGoals may be documented in an alternate sectionGoals may be documented in an alternate sectionGoals may be documented in an alternate sectionGoals may be documented in an alternate sectionGoals may be documented in an alternate sectionGoals may be documented in an alternate sectionGoals may be documented in an alternate sectionGoals may be documented in an alternate sectionGoals may be documented in an alternate sectionGoals may be documented in an alternate sectionGoals may be documented in an alternate sectionGoals may be documented in an alternate section Inactive Administered Medications - up to 3 most recent administrations Administered Medications (un recognized section and content) Medication Order MAR Action Action Date Dose Rate Site betamethasone acetate-betamethasone sodium phosphate 6 mg injection (CELESTONE) 6 mg, Injection - FOR ORTHO USE ONLY, ONCE, 1 dose, Starting on Fri06/18/23 at 0916, Until Fri06/18/23 at 0916 Given 06/18/2023 9:16 AM EDT 6 mg Knee, Left lidocaine (PF) 10 mg/mL (1 %) 4 mL injection (XYLOCAINE) 4 mL, Injection - FOR ORTHO USE ONLY, ONCE, 1 dose, Starting on Fri06/18/23 at 0916, Until Fri06/18/23 at 0916 Given 06/18/2023 9:16 AM EDT 4 mL Knee, Left Inactive Administered Medications - up to 3 most recent administrations Medication Order MAR Action Action Date Dose Rate Site betamethasone acetate-betamethasone sodium phosphate 6 mg injection (CELESTONE) 6 mg, Injection - FOR ORTHO USE ONLY, ONCE, 1 dose, Starting on Fri06/30/23 at 1600, Until Fri06/30/23 at 1600 Given 06/30/2023 4:00 PM EDT 6 mg Knee, Right lidocaine (PF) 10 mg/mL (1 %) 5 mL injection (XYLOCAINE) 5 mL, Injection - FOR ORTHO USE ONLY, ONCE, 1 dose, Starting on Fri06/30/23 at 1600, Until Fri06/30/23 at 1600 Given 06/30/2023 4:00 PM EDT 5 mL Knee, Right FOR RECORDS PERTAINING TO PATIENTS WHO ARE [...] BE BASED ON THE PRIMARY CLINICAL RECORDS. [facility]. provides no warranty or guarantee of the accuracy or completeness of information in this document.
--- OUTSIDE RECORDS SUMMARY | 2024-08-30 04:15 | XMS RPT_ITS | CCD ---
Author Organization [facility] Care Team Providers Care Jewel Stringer Name Role Phone Galina Iraheta MD Primary Care Provider 13, Pharmacist Unavailable Galina Iraheta MD Primary Care Provider Dr. Galina Iraheta Primary Care Provider [place] PNEUMATIC TESTER MECHANIC, PNEUMATIC TESTER MECHANIC-C Galina Attending Provider BASILIA Jerome Attending Unavailable GALINA IRAHETA Referring Unavailable GALINA IRAHETA Primary Care Unavailable BASILIA HERNÁNDEZ Attending Unavailable JAYDE HEBERT Referring Unavailable GALINA IRAHETA Primary Care Unavailable Dr. Galina Iraheta Primary Care Provider [place] PNEUMATIC TESTER MECHANIC, PNEUMATIC TESTER MECHANIC-C Galina Attending Provider Galina Pedro MD Primary Care Provider Lindai Sal SEWELL Unavailable Dr. Galina Iraheta Primary Care Provider [place] PNEUMATIC TESTER MECHANIC, PNEUMATIC TESTER MECHANIC-C Galina Attending Provider Dr. Galina Pedro Primary Care Provider [place] PNEUMATIC TESTER MECHANIC, PNEUMATIC TESTER MECHANIC-C Galina Attending Provider Galina Pedro MD Primary Care Provider Dr. Galina Iraheta Primary Care Provider [place] PNEUMATIC TESTER MECHANIC, PNEUMATIC TESTER MECHANIC-C Galina Attending Provider Dr. Galina Pedro Primary Care Provider [place] PNEUMATIC TESTER MECHANIC, PNEUMATIC TESTER MECHANIC-C Galina Attending Provider Reji Reyna MD Primary Care Provider Dr. Galina Iraheta Primary Care Provider Siri PNEUMATIC TESTER MECHANIC, PNEUMATIC TESTER MECHANIC-C Galina Attending Provider Dr. Galina Iraheta Primary Care Provider Siri PNEUMATIC TESTER MECHANIC, PNEUMATIC TESTER MECHANIC-C Galina Attending Provider Maribell PANG, Efewongbe B Primary Care Provider Maribell PANG, Efewongbe B Primary Care Provider Galina Iraheta MD Primary Care Provider 13, Pharmacist Unavailable Dr. Galina Iraheta MD Primary Care Provider Maribell PANG, Efbrunildabe Attending Provider Unavailtasia Reyna MD, Efewongbe Referring Provider Unavailtasia Horner PNEUMATIC TESTER MECHANIC-C, Galina Attending Provider OLEGHE, EFEWONGBE B Primary [...] UnavailDr. Reji Leonard MD Attending Provider [phone] Dr. Galina Iraheta MD Primary Care Provider [...] e Ganta, Galina Primary Care Unavailable [place] PNEUMATIC TESTER MECHANIC, Galina Attending Unavailable Ganta, Gailna Primary Care Unavailable [place] PNEUMATIC TESTER MECHANIC, Galina Attending Unavailable Oleghe OLS, Efewongbe Attending [...] Primary Care Unavailable Charles Ramos Attending Unavailable [facility] Primary Care Unavailable Galina Horner NP Attending Unavailable Maribell Jas POPEongbe Attending Unavailabl e [facility] Primary Care Unavailable [facility] Primary Care Unavailable Maribell OLS Efewongbe Attending Unavailabl e Allergies Allergy Classification Reported Allergen(s) Allergy Type Date of Onset Reaction(s) Facility (20 sources) Angiotensin-converting enzyme inhibitor agent; Translations: [DESMOND INHIBITORS] Drug Intolerance Cough [facility] (20 sources) Cephalexin; Translations: [CEPHALEXIN] Drug Allergy Other: See Comments, [facility] (20 sources) Clindamycin; Translations: [CLINDAMYCIN] Drug Allergy Other: See Comments, [facility] (20 sources) cyclobenzaprine; Translations: [CYCLOBENZAPRINE] Drug Allergy [facility] (20 sources) Diclofenac / miSOPROStol; Translations: [DICLOFENAC-MISOPROSTO L] Drug Allergy 008 Diarrhea [facility] (20 sources) hydroCHLOROthiazide; Translations: [HYDROCHLOROTHIAZIDE] Drug Allergy Mental Status Change [facility] (20 sources) Lisinopril; Translations: [LISINOPRIL] Drug Allergy Unknown [facility] (20 sources) metroNIDAZOLE; Translations: [METRONIDAZOLE HCL] Drug Allergy Mental Status Change, Shortness of Breath [facility] (20 sources) Naproxen; Translations: [NAPROXEN] Drug Allergy Other: See Comments [facility] (20 sources) Naproxen; Translations: [NAPROXEN SODIUM] Drug Allergy [facility] (20 sources) oxybutynin; Translations: [OXYBUTYNIN] Drug Allergy Other: See Comments [facility] (20 sources) PARoxetine; Translations: [PAROXETINE] Drug Allergy 03-03-2 005 Contraindicat ion-Medical Surgical [facility] (20 sources) prednisoLONE / Sulfacetamide; Translations: [SULFACETAMIDE-PREDNIS OLONE] Drug Allergy 011 Cough [facility] (20 sources) Sulfonamides (Antibiotic); Translations: [SULFA (SULFONAMIDE ANTIBIOTICS)] Drug Allergy Unknown [facility] Work Phone: (20 sources) adhesives [Other] Propensity to adverse reactions Other: See Comments [facility] (20 sources) Adhesive agent; Translations: [adhesive] Allergy to substance Unknown [facility] (20 sources) cyclobenzaprine; Translations: [cyclobenzaprine HCl] Drug Allergy Unknown [facility] (20 sources) Diclofenac; Translations: [diclofenac sodium] Drug Allergy Unknown [facility] (20 sources) metroNIDAZOLE Drug Allergy Unknown [facility] (20 sources) miSOPROStol Drug Allergy Unknown [facility] (20 sources) PARoxetine; Translations: [paroxetine HCl] Drug Allergy Unknown [facility] (20 sources) prednisoLONE; Translations: [prednisolone acetate] Drug Allergy Unknown [facility] (20 sources) Sulfacetamide; Translations: [sulfacetamide sodium] Drug Allergy Unknown [facility] (20 sources) Angiotensin-converting enzyme inhibitor agent Drug Intolerance Cough [facility] (20 sources) Angiotensin Converting Enzyme (Desmond) Inhibitors Allergy to substance Unknown [facility] Comment on above: ERROR (2 sources) OTHER; Translations: [OTHER] Propensity to adverse reactions (disorder) [facility] Other [place] [facility] (12 sources) Hydroxychloroquine; Translations: [HYDROXYCHLOROQUINE] Drug Allergy 024 Rash [facility] (1 source) Angiotensin Converting Enzyme (Desmond) Inhibitors Drug allergy (disorder) [facility] Repository (1 source) hydroCHLOROthiazide Drug Allergy [facility] Repository (1 source) Lisinopril Drug Allergy [facility] Repository (1 source) metroNIDAZOLE Drug Allergy 025 [facility] Repository (1 source) miSOPROStol Drug Allergy 025 [facility] Repository (1 source) Naproxen Drug Allergy 025 [facility] Repository Medications Current Medications Medication Drug Class(es) [...] on above: Take 5,000 mcg by mo [facility] once daily. Calcium Carb And Citrat-Mag Ox [...] take 1 tablet by mouth once daily ktdydmy-rdbjfdsoc-ycwofpd D3 500 mg-5 mcg (200 unit) per [...] Take 1 tablet by natalie once daily. Snanvhb-Luw-Bsa S1-Y1-Vpdorsmz (Citracal Plus) 457-63-5-125 gp-sv-sd-unit Tablet (20 sources) Start: 08-20-2021 take 1 tablet by mouth twice daily Rioxkly-Dog-Fzk N7-P9-Mdrplquj (Citracal Plus) 421-70-8-125 fy-wb-hj-unit Tablet Active 1 TABLET PO TWICE A DAY August 20, 2021 8:15am Start: 08-20-2021 End: 08-13-2024 Bvozcsh-Ppc-Wdf N9-K0-Edqdln ls (Citracal Plus) 177-91-4-125 po-au-aw-unit Tablet Discontinued 1 {tbl} PO TWICE A DAY August 20, 2021 12:00am August 13, 2024 2:28pm Start: 08-20-2021 Tcslalq-Lts-Bl t Q5-M5-Ixlmnhzq (Citracal Plus) 729-71-7-125 pp-dv-le-unit Tablet Active 1 {tbl} PO TWICE A DAY August 20, 2021 12:00am Start: 08-20-2021 take 1 tablet by natalie twice daily Hxxmprc-Yme-Hab D6-D5-Fxbxphim (Citracal Plus) 246-25-9-125 wg-ut-da-unit Tablet Active 1 TABLET PO TWICE A DAY August 19, 2021 11:00pm Start: 08-20-2021 take 1 tablet by natalie twice daily Zmlirix-Ipo-Drr J8-V1-Dypwblum (Citracal Plus) 607-21-0-125 ng-nj-tm-unit Tablet Active 1 TABLET PO TWICE A [...] Comment on above: [facility] cholecalciferol 0.025 mg chewable tablet [...] needed. docusate sodium 50 mg / sennosides, fci 8.6 mg oral capsule (20 sources) Start: [...] Fluticasone Propionate (Flonase Allergy Relief) 50 mcg/actuation [place],Suspension Active 1 NMA INTRANASAL DAILY August 20, 2021 12:00am Start: 08-20-2021 Fluticasone Pr opionate (Flonase Allergy Relief) 50 mcg/actuation [place],Suspension Active 1 SPRAY INTRANASAL DAILY August 20, [...] tablets by mouth once daily. Glucos Sul 4ghc-Wmg-Lormf-C-Mn (Glucosamine Chondroitin) 550-30-1 mg Capsule (13 sources) Start: 08-20-2021 take 1 capsule by mouth at bedtime Glucos Sul 6rkn-Lfb-Annfg-C-M n (Glucosamine Chondroitin) 550-30-1 mg Capsule Active 1 CAP PO AT BEDTIME August 20, 2021 8:15am Start: 08-20-2021 take 1 capsule by mo uth at bedtime Glucos Sul 7ggg-Orr-Fwpym-C-Mn (Glucosamine Chondroitin) 550-30-1 mg Capsule Active 1 CAP PO AT BEDTIME August 19, 2021 11:00pm Start: 08-20-2021 take 1 capsule by mo uth at bedtime Glucos Sul 3gcm-Krp-Gaegl-C-Mn (Glucosamine Chondroitin) 550-30-1 mg Capsule Active 1 [...] mo uth once daily. polyethylene glycol 3350 73121 mg powder for oral solution (10 sources) Osmotic Laxative Start: take 17 g by mouth once daily as needed Polyethylene Glycol 3350 17 gram powder in packet Active 17 g PO daily as needed August 13, 2024 12:00am End: 11-14-2023 polyethylene glycol 3350 (OR RALAX) 17 gram/dose powder Take 17 g [...] take 9 mg by mouth once daily OR EDNISONE ORAL Take 9 mg by mouth once daily. Active take 9 mg by mouth once daily OR EDNISONE ORAL Take 9 mg by mouth [...] Start: 03-26-2018 Triamcinolone Acetonide (Nasacort Aq Nasal [place]) 1 SPRAY Nasal.Sry Active 2 SPRAY NASAL DAILY March 26, 2018 11:19am Start: 03-26-2018 Triamcinolone Acetonide (Nasacort Aq Nasal [place]) 1 SPRAY aerosol,spray Active 2 SPRAY NASAL NEEDED March 26, 2018 1:00am Start: 03-05-2016 End: 08-13-2024 Triamcinolone Acetonide (Ángel acort Aq Nasal [place]) 1 SPRAY aerosol,spray Discontinued 2 NMA NASAL [...] mg (1 pen) subcutaneously every 2 weeks. [id number] actuat albuterol 0.09 mg/actuat metered dose [...] Comment on above: [facility] 7 days. diphenhydrAMINE [...] Comment on above: [facility] folic acid 1 mg oral tablet (5 sources) Start: 0 End: 1 take 3 tablets by mouth once daily folic acid 1 mg tablet Take 3 tablets by mouth once daily. 270 tablet 3 10/27/2020 01/30/2021 Discontinued Start: 08-30-2014 take 1 mg by mouth once daily Folic Acid Active 1 MG PO DAILY@0800 August 30, 2014 10:14am glucosamine/msm/chondroitin A (FWXVSZRAZRE-NFECYL-LEB ORAL) (11 sources) End: 07-09-2021 take 1 capsule by mouth once daily glucosamine/msm/chondroitin A (ZQPCIQVULKQ-XPWUOY-IQO ORAL) Take 1 capsule by mouth once daily. 07/09/2021 Discontinued (Erroneous entry) End: 07-09-2021 take 1 capsule by mouth once daily glucosamine/msm/chondroitin A (SATZZBPHEUF-YPQQGF-CUH ORAL) Take 1 capsule by mouth once daily. 0 07/09/2021 Discontinued (Erroneous entry) take 1 capsule by mo [facility] once daily glucosamine/msm/chondroitin A (IFJFIFYMQJI-TLCUNV-BCK ORAL) Take 1 capsule by mouth once daily. 0 Active Comment on above: Take 1 capsule by [facility] once daily. Handicapped placcard (20 sources) Start: [...] Comment on above: Take 1 tablet by [facility] two [facility] a day. inFLIXimab-abda 200 mg [...] in NaCl (PF) 0.9% 10 mL injection (JJS Media[employer]) (10 sources) Start: 09-06-2020 End: 07-09-2021 perflutren [...] Start: 06-17-2021 take 2 tablets by mo [facility] every eight hours as needed phenazopyridine (PYRIDIUM) 100 mg tablet Take 2 tablets by mouth three times daily as needed. 6 tablet 0 06/17/2021 Active Comment on above: Take 2 tablets by mo [facility] three times daily as needed. Take 1 tablet by [facility] three times daily as needed for up [...] 29, 2014 11:00pm Start: 08-30-2014 Warfarin (Coum mary (Pbkc)) 3 MG tablet Active 1 MG [...] disease (2 sources) Atherosclerotic heart disease of [place] coronary artery without angina pectoris; Translations: [Atherosclerotic heart disease of [place] coronary artery without angina pectoris] Onset: 5 [...] Other aftercare (20 sources) Anticoagulant effect; Translations: [FPC (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 anticoagulants] 08-08-2019 Episodic Other aftercare (2 sources) Device in situ; Translations: [Encounter for adjustment and management of vascular access device] 09-24-2022 Episodic Other aftercare (4 sources) Drug therapy finding; Translations: [supervisor intermediates (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 systemic steroids] 06-06-2023 Episodic [...] sources) Long-term current use of anticoagulant; Translations: [FPC (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 anticoagulants] Onset: 5 03-22-2019 [...] Forearm 2 Viewson 08-18-2024 Forearm 2 Views [facility] Services [address] [place] [address] Forearm 2 Views MR#: [id number] Acct: [id number] Name: CHRISTIAN LANDRUM Rep #: [id number] : 1935 F 89 From: Nic Ozuna MD PCP: Dr. Reji Reyna MD Status: DEP [facility] Study: Forearm 2 Views Date of Exam: 08/18/24 Exam# [id number] Ordering Dr: Carmella Deluca PROCEDURE: FOREARM 2 VIEWS 08/18/2024 REASON FOR EXAM: FX F/U TECHNIQUE: 2 view(s) of the left forearm COMPARISON: Left forearm, 08/14/2019. FINDINGS: There is a healing greenstick fracture of the distal ulnar shaft. There is no significant angulation deformity. RAD/Forearm 2 Views IMPRESSION: Healing ulnar shaft fracture. Reading Location: [id number] CC: OLIVE Deluca; Dr. Reji Reyna MD Costume Shop Manager: Signed Normal [facility] Orthopedic Visit Reporton Orthopedic Visit Report [facility] [address] [place] [address] [address] [place] [address] OFFICE VISIT Date of Service: 08/18/24 MR#: [id number] Acct: [id number] Name: CHRISTIAN LANDRUM Rep #: [id number] : 1935 Provider: OLIVE manzo Age/Sex: 89/F Location: [facility] [place] Status: Signed Intake Vital Signs 08/13/24 13:10 [...] mastectomy (more content not included)... Normal [facility] Forearm 2 Viewson 08-13-2024 Forearm 2 Views [facility] [address] [place], [place] [address] Forearm 2 Views MR#: [id number] Acct: [id number] Name: CHRISTIAN LANDRUM Rep #: [id number] : 1935 F 89 From: Obdulia Snider MD PCP: Dr. Reji Reyna MD Status: DEP AMB Study: Forearm 2 Views Date of Exam: 08/13/24 Exam# [id number] Ordering Dr: Carmella Deluca PNEUMATIC TESTER MECHANIC-C PROCEDURE: FOREARM 2 VIEWS 08/13/2024 REASON FOR [...] the 1st carpometacarpal joint. Osteopenia. Reading Location: [facility] CC: OLIVE Deluca; Dr. Reji Reyna MD Costume Shop Manager: Signed Normal [facility] Humerus min 2 Viewson 2024 Humerus min 2 Views [facility] Imaging Services [address] [place], [place] [id number] Humerus min 2 Views MR#: [id number] Acct: [id number] Name: CHRISTIAN LANDRUM Rep #: [id number] : 1935 F 89 From: Obdulia Snider MD PCP: Dr. Reji Reyna MD Status: DEP AMB Study: Humerus min 2 Views Date of Exam: 08/13/24 Exam# [id number] Ordering Dr: Carmella Deluca PROCEDURE: HUMERUS MIN [...] glenohumeral joint osteoarthrosis as above. Reading Location: [facility] CC: OLIVE Deluca; Dr. Reji Reyna MD Costume Shop Manager: Signed Normal [facility] Orthopedic Visit Reporton Orthopedic Visit Report [facility] [address] [place] [address] [address] [place] [id number] OFFICE VISIT Date of Service: 08/13/24 MR#: [id number] Acct: [id number] Name: CHRISTIAN LANDRUM Rep #: [id number] : 1935 Provider: OLIVE manzo Age/Sex: 89/F Location: [facility] [place] Status: Signed Intake Vital Signs 08/13/24 13:10 [...] the decisions made by me, Carmella Deluca, PNEUMATIC TESTER MECHANIC-C 08/13/24 2946. Part of today???s visit was documented by [...] bruising. Patient stays at facility and the PNEUMATIC TESTER MECHANIC there today reports a portable x-ray showed [...] Peña (more content not included)... Normal [facility] CT Abd/Pelvis W/WO Contrasto n 08-06-2024 CT Abd/Pelvis W/WO Contrast [facility] Services [address] [place], [place] [address] CT Abd/Pelvis W/WO Contrast MR#: [id number] Acct: [id number] Name: CHRISTIAN LANDRUM Rep #: [id number] : 1935 F 89 From: Mallika wyatt MD PCP: Dr. Reji Reyna MD Status: REG CLI Study: CT Abd/Pelvis W/WO Contrast Date of Exam: 07/16 06/08 Exam# [id number] Ordering Dr: Hiwot Abdullahi MD PROCEDURE: CT [...] the stomach suggestive of gastritis. Reading Location: [place] [address] CC: Dr. Reji Reyna MD; Dr. Hiwot Abdullahi MD Costume Shop Manager: Signed Normal [facility] Absolute lymphocyte countOrd ered By: Reji Reyna on 08-02-2024 Lymphocytes Auto (Unsp spec) [#/Vol] 0.96 10*3/uL 0.83-4.51 [facility] Absolute neutrophil countOrd ered By: Reji Reyna on 08-02-2024 Neutrophils (Bld) [#/Vol] 4.6 10*3/uL 2.0-7.7 [facility] Anion gap in Serum or Plasma Ordered By: Reji Reyna on 05-19-2025 Anion gap [Moles/Vol] 9 mmol/L 5-15 [facility] Automated lymphocyte count a s percentage of total leukocytesOrdered By: Reji Reyna on 08-02-2024 Lymphocytes/100 WBC Auto (Unsp spec) 15.0 % Low 19-41 [facility] BUN/creatinine ratioOrdered By: Reji Reyna on 08-02-2024 Urea nitrogen/Creatinine [Mass ratio] 27.8 mg/mg High 10-20 [facility] Basophil percentageOrdered B y: Reji Reyna on 08-02-2024 Basophils/100 WBC (Bld) 0.6 % 0-1 [facility] Bilirubin, totalOrdered By: Reji Reyna on 08-02-2024 Bilirubin [Mass/Vol] 0.73 mg/dL 0.00-1.30 [facility] Carbon dioxide, total [Moles /volume] in Central venous bloodOrdered By: Reji Reyna on 08-02-2024 CO2 [Moles/Vol] 23.8 mmol/L 21.0-32.0 [facility] Chloride assayOrdered By: Angelito Reyna on 08-02-2024 Chloride [Moles/Vol] 104 mmol/L 98-108 [facility] Eosinophil percentageOrdered By: Reji Reyna on 08-02-2024 Eosinophils/100 WBC (Bld) 1.4 % 0-5 [facility] Erythrocyte distribution wid th ratioOrdered By: Reji Reyna on 08-02-2024 Erythrocyte distribution width (RBC) [Ratio] 16.2 % High 11.6-14.6 [facility] Erythrocyte distribution wid th standard deviationOrdered By: Reji Reyna on 08-02-2024 Erythrocyte distribution width (RBC) [Ratio] 58.4 fl High 35.1-43.9 [facility] Glomerular filtration rate ( GFR) estimation/1.73 sq m using serum, plasma, or whole bOrdered By: Reji Reyna on 08-02-2024 GFR/1.73 sq M.predicted among non-blacks MDRD (S/P/Bld) [Vol rate/Area] 87 mL/min/{1.73_m2} >60 [facility] Comment on above: mL/min/1.73m2 CKD-EP I Creatinine Equation (2020) Hematocrit Auto (Bld) [Volum e fraction]Ordered By: Reji Reyna on 08-02-2024 Hematocrit (Bld) [Volume fraction] 36.7 % Low 37-47 [facility] Hemoglobin measurementOrdere d By: Reji Reyna on 08-02-2024 Hemoglobin (Bld) [Mass/Vol] 12.1 g/dL 12.0-15.0 [facility] Immature granulocytes/100 WB C Auto (Bld)Ordered By: arline Reyna on 08-02-2024 Immature granulocytes/100 WBC (Bld) 0.800 % 0.0-0.9 [facility] Comment on above: IG% - Immature Granu locytes (promyelocytes, myelocytes and metamyelocytes) > 1% indicates that a LEFT SHIFT is Present. Laboratory - Chemistry and C hemistry - challengeOrdered By: Reji Reyna on 08-02-2024 AST [Catalytic activity/Vol] 33 U/L High <32 [facility] MCV (mean corpuscular volume ) determinationOrdered By: Reji Reyna on 08-02-2024 MCV (RBC) [Entitic vol] 98.4 fL 81-99 [facility] Mean corpuscular hemoglobin (MCH) determinationOrdered By: Reji Reyna on 08-02-2024 MCH (RBC) [Entitic mass] 32.4 pg High 27.0-32.0 [facility] Mean corpuscular hemoglobin concentration (MCHC) determinationOrdered By: arline Reyna on 08-02-2024 MCHC (RBC) [Mass/Vol] 33.0 g/dL 32-36 [facility] Mean platelet volume determi nationOrdered By: Reji Reyna on 08-02-2024 Platelet mean volume (Bld) [Entitic vol] 9.4 fL 6.2-12.0 [facility] Monocyte percentageOrdered B y: Reji Reyna on 08-02-2024 Monocytes/100 WBC (Bld) 10.5 % High 0-10 [facility] Neutrophil percentageOrdered By: Reji Reyna on 08-02-2024 Neutrophils/100 WBC (Bld) 71.7 % High 47-70 [facility] Nucleated red blood cell per centageOrdered By: Reji Reyna on 08-02-2024 Nucleated RBC/100 WBC (Bld) [Ratio] 0 % 0-5 [facility] Platelet countOrdered By: Angelito Reyna on 08-02-2024 Platelets (Bld) [#/Vol] 141 10*3/uL Low 150-450 [facility] Potassium measurement (mass/ volume)Ordered By: Reji Reyna on 08-02-2024 Potassium (Unsp spec) [Mass/Vol] 4.4 mmol/L 3.3-5.1 [facility] RBC Auto (Bld) [#/Vol]Ordere d By: Reji Reyna on 08-02-2024 RBC (Bld) [#/Vol] 3.73 10*6/uL Low 4.2-5.4 [facility] Serum creatinine measurement (mass/volume)Ordered By: Reji Reyna on 08-02-2024 Creatinine [Mass/Vol] 0.58 mg/dL Low 0.70-1.20 [facility] Serum globulin measurementOr dered By: Reji Reyna 08-02-2024 Globulin (S) [Mass/Vol] 3.7 g/dL 2.2-4.2 [facility] Serum glucose measurement (m ass/volume)Ordered By: Reji Reyna on 08-02-2024 Glucose [Mass/Vol] 79 mg/dL 70-99 [facility] Serum or plasma alanine [place] otransferase (ALT) measurementOrdered By: Reji Reyna on 08-02-2024 ALT [Catalytic activity/Vol] 34 U/L <35 [facility] Serum or plasma albumin yonatan urement (mass/volume)Ordered By: Reji Reyna on 08-02-2024 Albumin [Mass/Vol] 3.4 g/dL 3.4-4.8 [facility] Serum or plasma albumin/glob ulin mass ratioOrdered By: Reji Reyna on 08-02-2024 Albumin/Globulin [Mass ratio] 0.9 {ratio} 0.9-2.4 [facility] Serum or plasma alkaline shannon sphatase measurementOrdered By: Angelitoarline Reyna on 08-02-2024 ALP [Catalytic activity/Vol] 63 U/L 35-104 [facility] Serum or plasma calcium yonatan urement (mass/volume)Ordered By: Reji Reyna on 08-02-2024 Calcium [Mass/Vol] 9.2 mg/dL 7.6-11.0 [facility] Serum or plasma urea nitroge n measurement (mass/volume)Ordered By: Reji Reyna 08-02-2024 Urea nitrogen [Mass/Vol] 16 mg/dL 4-19 [facility] Sodium levelOrdered By: Jas traceynicole Maribell on 08-02-2024 Sodium [Moles/Vol] 137 mmol/L 133-145 [facility] Total proteinOrdered By: Fredyalyssa brookegarfield Reyna on 08-02-2024 Protein [Mass/Vol] 7.1 g/dL 5.9-8.4 [facility] White blood cell (WBC) count Ordered By: Reji Reyna 08-02-2024 WBC (Bld) [#/Vol] 6.4 10*3/uL 4.4-11.0 [facility] Clostridium difficile detect ion by polymerase chain reactionOrdered By: Reji Reyna 07-08-2024 C. difficile DNA DEMARCUS+probe Ql (Unsp spec) [facility] Stool lactoferrin detection by immunoassayOrdered By: Reji Reyna 07-08-2024 Lactoferrin IA Ql (Stl) [facility] International normalized rat io (INR) calculationOrdered By: Reji Reyna 07-07-2024 INR Coag (Bld) [Relative time] 1.2 {INR} [facility] Prothrombin timeOrdered By: Reji Reyna 07-07-2024 PT Coag (PPP) [Time] 15.5 s High 11.7-14.9 [facility] T4 freeOrdered By: Reji Reyna on 07-07-2024 Free T4 [Mass/Vol] 0.80 ng/dL 0.76-1.46 [facility] TSH DL <= 0.005 mIU/L QnOrde red By: Reji Reyna on 07-07-2024 TSH Qn 1.430 uIU/mL 0.300-4.200 [facility] Absolute lymphocyte countOrd ered By: Reji Reyna on 07-05-2024 Lymphocytes Auto (Unsp spec) [#/Vol] 0.92 10*3/uL 0.83-4.51 [facility] Absolute neutrophil countOrd ered By: Reji Reyna on 07-05-2024 Neutrophils (Bld) [#/Vol] 4.1 10*3/uL 2.0-7.7 [facility] Anion gap in Serum or Plasma Ordered By: Reji Reyna on 07-05-2024 Anion gap [Moles/Vol] 9 mmol/L 5-15 [facility] Automated lymphocyte count a s percentage of total leukocytesOrdered By: Reji Reyna on 07-05-2024 Lymphocytes/100 WBC Auto (Unsp spec) 15.9 % Low 19-41 [facility] BUN/creatinine ratioOrdered By: Reji Reyna on 07-05-2024 Urea nitrogen/Creatinine [Mass ratio] 20.6 mg/mg High 10-20 [facility] Basophil percentageOrdered B y: Reji Reyna on 07-05-2024 Basophils/100 WBC (Bld) 0.5 % 0-1 [facility] Bilirubin, totalOrdered By: Reji Reyna on 07-05-2024 Bilirubin [Mass/Vol] 0.72 mg/dL 0.00-1.30 [facility] Carbon dioxide, total [Moles /volume] in Central venous bloodOrdered By: Reji Reyna on 07-05-2024 CO2 [Moles/Vol] 24.8 mmol/L 21.0-32.0 [facility] Chloride assayOrdered By: Angelito Reyna on 07-05-2024 Chloride [Moles/Vol] 103 mmol/L 98-108 [facility] Eosinophil percentageOrdered By: Reji Reyna on 07-05-2024 Eosinophils/100 WBC (Bld) 1.2 % 0-5 [facility] Erythrocyte distribution wid th ratioOrdered By: merylpalermogarfield Reyna on 07-05-2024 Erythrocyte distribution width (RBC) [Ratio] 15.9 % High 11.6-14.6 [facility] Erythrocyte distribution wid th standard deviationOrdered By: merylpalermogarfield Herronrejialyssa on 07-05-2024 Erythrocyte distribution width (RBC) [Ratio] 55.2 fl High 35.1-43.9 [facility] Glomerular filtration rate ( GFR) estimation/1.73 sq m using serum, plasma, or whole bOrdered By: [facility] on 07-05-2024 GFR/1.73 sq M.predicted among non-blacks MDRD (S/P/Bld) [Vol rate/Area] 87 mL/min/{1.73_m2} >60 [facility] Comment on above: mL/min/1.73m2 CKD-EP I Creatinine Equation (2020) Hematocrit Auto (Bld) [Volum e fraction]Ordered By: Reji Reyna on 07-05-2024 Hematocrit (Bld) [Volume fraction] 31.0 % Low 37-47 [facility] Hemoglobin A1c percentageOrd ered By: arline Reyna on 07-05-2024 HbA1c (Bld) [Mass fraction] 5.0 % <5.7 [facility] Comment on above: Normal < 5.7 % Predi abetic 5.7 - 6.4 % Diabetic >or= 6.5 % Please note range changes. Hemoglobin measurementOrdere d By: Reji Reyna on 07-05-2024 Hemoglobin (Bld) [Mass/Vol] 10.3 g/dL Low 12.0-15.0 [facility] Immature granulocytes/100 WB C Auto (Bld)Ordered By: Reji Reyna on 07-05-2024 Immature granulocytes/100 WBC (Bld) 0.700 % 0.0-0.9 [facility] Comment on above: IG% - Immature Granu locytes (promyelocytes, myelocytes and metamyelocytes) > 1% indicates that a LEFT SHIFT is Present. Laboratory - Chemistry and C hemistry - challengeOrdered By: Reji Reyna on 07-05-2024 AST [Catalytic activity/Vol] 32 U/L <32 [facility] MCV (mean corpuscular volume ) determinationOrdered By: Reji Reyna on 07-05-2024 MCV (RBC) [Entitic vol] 95.7 fL 81-99 [facility] Mean corpuscular hemoglobin (MCH) determinationOrdered By: [facility] Reyn[facility] on 07-05-2024 MCH (RBC) [Entitic mass] 31.8 pg 27.0-32.0 [facility] Mean corpuscular hemoglobin concentration (MCHC) determinationOrdered By: merylpalermogarfield Reyna on 07-05-2024 MCHC (RBC) [Mass/Vol] 33.2 g/dL 32-36 [facility] Mean platelet volume determi nationOrdered By: Reji Reyna on 07-05-2024 Platelet mean volume (Bld) [Entitic vol] 9.6 fL 6.2-12.0 [facility] Monocyte percentageOrdered B y: Reji Reyna on 07-05-2024 Monocytes/100 WBC (Bld) 11.3 % High 0-10 [facility] Neutrophil percentageOrdered By: [facility] on 07-05-2024 Neutrophils/100 WBC (Bld) 70.4 % High 47-70 [facility] Nucleated red blood cell per centageOrdered By: arline Reyna on 07-05-2024 Nucleated RBC/100 WBC (Bld) [Ratio] 0 % 0-5 [facility] Platelet countOrdered By: Angelito merylailyn Reyna on 07-05-2024 Platelets (Bld) [#/Vol] 151 10*3/uL 150-450 [facility] Potassium measurement (mass/ volume)Ordered By: Reji Reyna on 07-05-2024 Potassium (Unsp spec) [Mass/Vol] 4.0 mmol/L 3.3-5.1 [facility] RBC Auto (Bld) [#/Vol]Ordere d By: Reji Reyna on 07-05-2024 RBC (Bld) [#/Vol] 3.24 10*6/uL Low 4.2-5.4 [facility] Serum creatinine measurement (mass/volume)Ordered By: Reji Reyna on 07-05-2024 Creatinine [Mass/Vol] 0.59 mg/dL Low 0.70-1.20 [facility] Serum globulin measurementOr dered By: Reji Reyna on 07-05-2024 Globulin (S) [Mass/Vol] 3.3 g/dL 2.2-4.2 [facility] Serum glucose measurement (m ass/volume)Ordered By: Reji Reyna on 07-05-2024 Glucose [Mass/Vol] 76 mg/dL 70-99 [facility] Serum or plasma alanine cheatham otransferase (ALT) measurementOrdered By: Reji Reyna on 07-05-2024 ALT [Catalytic activity/Vol] 23 U/L <35 [facility] Serum or plasma albumin yonatan urement (mass/volume)Ordered By: Reji Reyna on 07-05-2024 Albumin [Mass/Vol] 2.9 g/dL Low 3.4-4.8 [facility] Serum or plasma albumin/glob ulin mass ratioOrdered By: Reji Reyna 07-05-2024 Albumin/Globulin [Mass ratio] 0.9 {ratio} 0.9-2.4 [facility] Serum or plasma alkaline shannon sphatase measurementOrdered By: Reji Reyna 07-05-2024 ALP [Catalytic activity/Vol] 46 U/L 35-104 [facility] Serum or plasma calcium yonatan urement (mass/volume)Ordered By: Reji Reyna 07-05-2024 Calcium [Mass/Vol] 8.9 mg/dL 7.6-11.0 [facility] Serum or plasma urea nitroge n measurement (mass/volume)Ordered By: Reji Reyna 07-05-2024 Urea nitrogen [Mass/Vol] 12 mg/dL 4-19 [facility] Sodium levelOrdered By: Jas Reyna on 07-05-2024 Sodium [Moles/Vol] 137 mmol/L 133-145 [facility] Total proteinOrdered By: Fredy Reyna on 07-05-2024 Protein [Mass/Vol] 6.3 g/dL 5.9-8.4 [facility] White blood cell (WBC) count Ordered By: Reji Reyna on 07-05-2024 WBC (Bld) [#/Vol] 5.8 10*3/uL 4.4-11.0 [facility] Hemoglobin A1c percentageOrd ered By: Reji Reyna on 06-16-2024 HbA1c (Bld) [Mass fraction] 5.0 % Low >5.7 [facility] CBC W Auto Differential pane l (Bld)on 06-11-2024 Basophils (Bld) [#/Vol] [facility] Basophils/100 WBC (Bld) 0.3 % [facility] Differential cell count method Nom (Bld) Auto [facility] Eosinophils (Bld) [#/Vol] [facility] Eosinophils/100 WBC (Bld) 0.1 % [facility] Erythrocyte distribution width (RBC) [Ratio] 15.7 % High 11.5 - 15.0 % [facility] Hematocrit (Bld) [Volume fraction] 34.9 % Low 36.0 - 46.0 % [facility] Hemoglobin (Bld) [Mass/Vol] 11 g/dL Low 11.5 - 15.5 g/dL [facility] Immature granulocytes (Bld) [#/Vol] 0.06 10*3/uL [facility] Immature granulocytes/100 WBC (Bld) 0.8 % [facility] Interpretation and review of laboratory results Abnormal [facility] Lymphocytes (Bld) [#/Vol] 0.5 10*3/uL Low [facility] Lymphocytes/100 WBC (Bld) 7 % [facility] MCH (RBC) [Entitic mass] 30.6 pg 26.0 - 34.0 pg [facility] MCHC (RBC) [Mass/Vol] 31.5 g/dL 30.5 - 36.0 g/dL [facility] MCV (RBC) [Entitic vol] 97.2 fL 80.0 - 100.0 fL [facility] Monocytes (Bld) [#/Vol] 0.52 10*3/uL NINF [facility] Monocytes/100 WBC (Bld) 7.3 % [facility] Neutrophils (Bld) [#/Vol] 6 10*3/uL [facility] Neutrophils/100 WBC (Bld) 84.5 % [facility] Nucleated RBC (Bld) [#/Vol] NINF [facility] Nucleated RBC/100 WBC (Bld) [Ratio] 0 % /100 WBC [facility] Platelet mean volume (Bld) [Entitic vol] 9.8 fL 9.0 - 12.7 fL [facility] Platelets (Bld) [#/Vol] 141 10*3/uL Low [facility] RBC (Bld) [#/Vol] 3.59 10*6/uL Low 3.90 - 5.2 0 m/uL [facility] WBC (Bld) [#/Vol] 7.11 10*3/uL [facility] Comprehensive metabolic 2000 panelOrdered By: Pam Tate on 06-11-2024 Albumin [Mass/Vol] 3.5 g/dL Low 3.9 - 4.9 g/dL [facility] ALP [Catalytic activity/Vol] 64 U/L 34 - 123 U/L [facility] ALT [Catalytic activity/Vol] 26 U/L 7 - 38 U/L [facility] Anion gap [Moles/Vol] 11 mmol/L 8 - 15 mmol/L [facility] AST [Catalytic activity/Vol] 28 U/L 13 - 35 U/L [facility] Bilirubin [Mass/Vol] 0.6 mg/dL 0.2 - 1 .3 mg/dL [facility] Calcium [Mass/Vol] 9.1 mg/dL 8.5 - 10. 2 mg/dL [facility] Chloride [Moles/Vol] 104 mmol/L 98 - 10 7 mmol/L [facility] CO2 [Moles/Vol] 23 mmol/L 22 - 30 mmol/L [facility] Creatinine [Mass/Vol] 0.59 mg/dL 0.58 - 0.96 mg/dL [facility] GFR/1.73 sq M.predicted among non-blacks MDRD (S/P/Bld) [Vol rate/Area] 87 mL/min/{1.73_m2} - PINF [facility] Comment on above: Estimated Glomerular Filtration Rate [...] 240 mg/dL High 74 - 99 mg/dL [facility] Comment on above: The [place] [employer] (ADA) provides guidance for [...] Standards of Medical Care in Diabetes 2016, [place] [employer]. Diabetes Care. 2016.39(Suppl 1). Interpretation and review of laboratory results Abnormal [facility] Potassium [Moles/Vol] 4.4 mmol/L 3.7 - 5.1 mmol/L [facility] Protein [Mass/Vol] 7.3 g/dL 6.3 - 8.0 g/dL [facility] Sodium [Moles/Vol] 138 mmol/L 136 - 144 mmol/L [facility] Urea nitrogen [Mass/Vol] 18 mg/dL 7 - 21 mg/dL [facility] Absolute lymphocyte countOrd ered By: Reji Reyna on 05-31-2024 Lymphocytes Auto (Unsp spec) [#/Vol] 1.03 10*3/uL 0.83-4.51 [facility] Absolute neutrophil countOrd ered By: Reji Reyna on 05-31-2024 Neutrophils (Bld) [#/Vol] 3.8 10*3/uL 2.0-7.7 [facility] Anion gap in Serum or Plasma Ordered By: Reji Reyna on 05-31-2024 Anion gap [Moles/Vol] 9 mmol/L 5-15 [facility] Automated lymphocyte count a s percentage of total leukocytesOrdered By: Angelitomerylmichaelgarfield Herronrejialyssa on 05-31-2024 Lymphocytes/100 WBC Auto (Unsp spec) 18.6 % Low 19-41 [facility] BUN/creatinine ratioOrdered By: Efmerylmichaelgarfield Herronrejie on 05-31-2024 Urea nitrogen/Creatinine [Mass ratio] 23.4 mg/mg High 10-20 [facility] Basophil percentageOrdered B y: Efraline Gopalrejie on 05-31-2024 Basophils/100 WBC (Bld) 0.5 % 0-1 [facility] Bilirubin, totalOrdered By: Reji Herronrejialyssa on 05-31-2024 Bilirubin [Mass/Vol] 0.51 mg/dL 0.00-1.30 [facility] Carbon dioxide, total [Moles /volume] in Central venous bloodOrdered By: Reji Herronrejialyssa on 05-31-2024 CO2 [Moles/Vol] 23.7 mmol/L 21.0-32.0 [facility] Chloride assayOrdered By: Angelito brunildagarfield Herronrejialyssa on 05-31-2024 Chloride [Moles/Vol] 105 mmol/L 98-108 [facility] Eosinophil percentageOrdered By: Reji Ramireze on 05-31-2024 Eosinophils/100 WBC (Bld) 1.3 % 0-5 [facility] Erythrocyte distribution wid th (RBC) [Ratio]Ordered By: Jasongbe Gopalrejie on 05-31-2024 Erythrocyte distribution width (RBC) [Entitic vol] 56.2 fL High 35.1-43.9 [facility] Erythrocyte distribution wid th ratioOrdered By: Efmerylongbe Gopalrejie on 05-31-2024 Erythrocyte distribution width (RBC) [Ratio] 15.9 % High 11.6-14.6 [facility] Erythrocyte distribution wid th standard deviationOrdered By: Jamisonbe Gopalrejie on 05-31-2024 Erythrocyte distribution width (RBC) [Ratio] 56.2 fl High 35.1-43.9 [facility] GFR/1.73 sq M.predicted lei g non-blacks MDRD (S/P/Bld) [Vol rate/Area]Ordered By: Reji Reyna on 05-31-2024 Estimated GFR (MDRD) Non-Af Amer 85 >60 [facility] Comment on above: mL/min/1.73m2 CKD-EP I Creatinine Equation (2020) Glomerular filtration rate ( GFR) estimation/1.73 sq m using serum, plasma, or whole bOrdered By: Reji Reyna on 05-31-2024 GFR/1.73 sq M.predicted among non-blacks MDRD (S/P/Bld) [Vol rate/Area] 85 mL/min/{1.73_m2} >60 [facility] Comment on above: mL/min/1.73m2 CKD-EP I Creatinine Equation (2020) Hematocrit Auto (Bld) [Volum e fraction]Ordered By: Reji Reyna on 05-31-2024 Hematocrit (Bld) [Volume fraction] 30.7 % Low 37-47 [facility] Hemoglobin measurementOrdere d By: Reji Reyna on 05-31-2024 Hemoglobin (Bld) [Mass/Vol] 9.7 g/dL Low 12.0-15.0 [facility] Immature granulocytes/100 WB C Auto (Bld)Ordered By: Reji Reyna on 05-31-2024 Immature granulocytes/100 WBC (Bld) 0.400 % 0.0-0.9 [facility] Comment on above: IG% - Immature Granu locytes (promyelocytes, myelocytes and metamyelocytes) > 1% indicates that a LEFT SHIFT is Present. Laboratory - Chemistry and C hemistry - challengeOrdered By: Reji Reyna on 05-31-2024 AST [Catalytic activity/Vol] 29 U/L <32 [facility] Lymphocytes Auto (Unsp spec) [#/Vol]Ordered By: Reji Reyna on 05-31-2024 Lymphocytes (Bld) [#/Vol] 1.03 10*3/uL 0.83-4.51 [facility] Lymphocytes/100 WBC Auto (Un sp spec)Ordered By: Reji Reyna on 05-31-2024 Lymphocytes/100 WBC (Bld) 18.6 % Low 19-41 [facility] MCV (mean corpuscular volume ) determinationOrdered By: Reji Reyna on 05-31-2024 MCV (RBC) [Entitic vol] 96.8 fL 81-99 [facility] Mean corpuscular hemoglobin (MCH) determinationOrdered By: Reji Reyna on 05-31-2024 MCH (RBC) [Entitic mass] 30.6 pg 27.0-32.0 [facility] Mean corpuscular hemoglobin concentration (MCHC) determinationOrdered By: Reji Reyna on 05-31-2024 MCHC (RBC) [Mass/Vol] 31.6 g/dL Low 32-36 [facility] Mean platelet volume determi nationOrdered By: Reji Reyna on 05-31-2024 Platelet mean volume (Bld) [Entitic vol] 9.8 fL 6.2-12.0 [facility] Monocyte percentageOrdered B y: Reji Reyna on 05-31-2024 Monocytes/100 WBC (Bld) 10.3 % High 0-10 [facility] Neutrophil percentageOrdered By: Reji Reyna on 05-31-2024 Neutrophils/100 WBC (Bld) 68.9 % 47-70 [facility] Nucleated red blood cell per centageOrdered By: Reji Reyna on 05-31-2024 Nucleated RBC/100 WBC (Bld) [Ratio] 0 % 0-5 [facility] Platelet countOrdered By: Angelito Reyna on 05-31-2024 Platelets (Bld) [#/Vol] 126 10*3/uL Low 150-450 [facility] Potassium (Unsp spec) [Mass/ Vol]Ordered By: Reji Reyna on 05-31-2024 Potassium [Moles/Vol] 4.0 mmol/L 3.3-5.1 [facility] Potassium measurement (mass/ volume)Ordered By: Reji Reyna on 05-31-2024 Potassium (Unsp spec) [Mass/Vol] 4.0 mmol/L 3.3-5.1 [facility] RBC Auto (Bld) [#/Vol]Ordere d By: Reji Reyna on 05-31-2024 RBC (Bld) [#/Vol] 3.17 10*6/uL Low 4.2-5.4 [facility] Serum creatinine measurement (mass/volume)Ordered By: Reji Reyna on 05-31-2024 Creatinine [Mass/Vol] 0.65 mg/dL Low 0.70-1.20 [facility] Serum globulin measurementOr dered By: Reji Reyna on 05-31-2024 Globulin (S) [Mass/Vol] 3.4 g/dL 2.2-4.2 [facility] Serum glucose measurement (m ass/volume)Ordered By: Reji Reyna on 05-31-2024 Glucose [Mass/Vol] 76 mg/dL 70-99 [facility] Serum or plasma alanine cheatham otransferase (ALT) measurementOrdered By: Reji Reyna on 05-31-2024 ALT [Catalytic activity/Vol] 29 U/L <35 [facility] Serum or plasma albumin yonatan urement (mass/volume)Ordered By: Reji Reyna on 05-31-2024 Albumin [Mass/Vol] 3.1 g/dL Low 3.4-4.8 [facility] Serum or plasma albumin/glob ulin mass ratioOrdered By: Reji Reyna 05-31-2024 Albumin/Globulin [Mass ratio] 0.9 {ratio} 0.9-2.4 [facility] Serum or plasma alkaline shannon sphatase measurementOrdered By: Reji Reyna 05-31-2024 ALP [Catalytic activity/Vol] 49 U/L 35-104 [facility] Serum or plasma calcium yonatan urement (mass/volume)Ordered By: Reji Reyna 05-31-2024 Calcium [Mass/Vol] 9.0 mg/dL 7.6-11.0 [facility] Serum or plasma urea nitroge n measurement (mass/volume)Ordered By: Reji Reyna on 05-31-2024 Urea nitrogen [Mass/Vol] 15 mg/dL 4-19 [facility] Sodium levelOrdered By: Jas ailyn Maribell on 05-31-2024 Sodium [Moles/Vol] 138 mmol/L 133-145 [facility] Total proteinOrdered By: Fredy edwardogarfield Reyna on 05-31-2024 Protein [Mass/Vol] 6.5 g/dL 5.9-8.4 [facility] Vitamin D, 25-hydroxyOrdered By: Reji Reyna on 05-31-2024 Vitamin D 25-Hydroxy 32.7 ng/mL 30-100 [facility] Comment on above: Vitamin D StatusDefi ciency: <20 ng/mL (50nmol/L)Insufficiency: 20-30 ng/mL (50-75 nmol/L)Sufficiency: 30-100 ng/mL (75-250 nmol/L)Toxicity: >100 ng/mL (>250 nmol/L) White blood cell (WBC) count Ordered By: Reji Reyna on 05-31-2024 WBC (Bld) [#/Vol] 5.6 10*3/uL 4.4-11.0 [facility] Bacteria LM.HPF (Urine sed) [#/Area]Ordered By: Reji Reyna on 05-13-2024 Urine Bacteria RARE /hpf None Seen [facility] Bilirubin Test strip Ql (U)O rdered By: Reji Reyna on 05-13-2024 Bilirubin Ql (U) Negative Negative [facility] Epithelial cells.squamous LM Ql (Urine sed)Ordered By: Reji Reyna on 05-13-2024 Epithelial cells.squamous LM.HPF (Urine sed) [#/Area] 0 /[HPF] 5-10 [facility] Glucose Ql (U)Ordered By: Angelito Reyna on 05-13-2024 Urine Glucose (UA) Normal mg/dl Normal [facility] Ketones Test strip Ql (U)Ord ered By: Reji Reyna on 05-13-2024 Ketones Ql (U) Negative Negative [facility] Microscopic analysis of urin e for red blood cells (RBC)Ordered By: Reji Reyna on 02-27-2025 Microscopic analysis of urine for red blood cells (RBC) 0-5 SEEN /hpf 0-5 [facility] Urine RBC 0-5 SEEN /hpf 0-5 [facility] Mucus LM Ql (Urine sed)Order ed By: Reji Reyna on 05-13-2024 Mucus Ql (Urine sed) 0 SEEN /hpf [facility] Nitrite Test strip Ql (U)Ord ered By: Reji Reyna on 05-13-2024 Nitrite Ql (U) Positive High Negative [facility] Protein Test strip Ql (U)Ord ered By: Reji Reyna on 05-13-2024 Protein Ql (U) Negative Negative [facility] Squamous epithelial cells de tection in urine sediment by light microscopyOrdered By: Reji Reyna on 05-13-2024 Epithelial cells.squamous LM Ql (Urine sed) 0-5 SEEN /hpf 5-10 [facility] Urine blood detectionOrdered By: Reji Reyna on 05-13-2024 Urine Occult Blood 10 /ul High Negative [facility] Urine clarityOrdered By: Fredy Reyna on 05-13-2024 Clarity (U) Clear Clear [facility] Urine color determinationOrd ered By: Reji Reyna on 05-13-2024 Color (U) Yellow Yellow [facility] Urine cultureOrdered By: Fredy Reyna on 05-13-2024 Bacteria identified Cx Nom (U) Escherichia coli Abnormal [facility] Urine glucose detectionOrder ed By: Reji Reyna on 05-13-2024 Glucose Ql (U) Normal mg/dl Normal [facility] Urine leukocyte esterase det ection by dipstickOrdered By: Reji Reyna on 05-13-2024 Leukocyte esterase Test strip Ql (U) 100 /ul High Negative [facility] Urine pHOrdered By: Deloris Reyna on 05-13-2024 pH (U) 6.5 [pH] 5.0 - 8.0 [facility] Urine sediment bacteria coun t by microscopy (number/high power field)Ordered By: Reji Reyna on 05-13-2024 Bacteria LM.HPF (Urine sed) [#/Area] RARE /hpf None Seen [facility] Urine specific gravity measu rementOrdered By: Reji Reyna on 05-13-2024 Specific gravity (U) [Rel density] 1.010 1.002-1.030 [facility] Urine urobilinogen measureme ntOrdered By: Reji Reyna on 05-13-2024 Urobilinogen Ql (U) Normal mg/dl Normal [facility] Urobilinogen Ql (U)Ordered B y: Reji Reyna on 05-13-2024 Urine Urobilinogen Normal mg/dl Normal [facility] White blood cell countOrdere d By: Reji Reyna on 05-13-2024 Urine WBC 0-5 SEEN /hpf 0-5 [facility] White blood cell count 0-5 SEEN /hpf 0-5 [facility] Absolute lymphocyte countOrd ered By: Reji Reyna on 05-03-2024 Lymphocytes Auto (Unsp spec) [#/Vol] 1.13 10*3/uL 0.83-4.51 [facility] Absolute neutrophil countOrd ered By: Reji Reyna on 05-03-2024 Neutrophils (Bld) [#/Vol] 5.1 10*3/uL 2.0-7.7 [facility] Albumin to globulin ratioOrd ered By: Reji Reyna on 05-03-2024 Albumin/Globulin [Mass ratio] 0.5 {ratio} Low 0.9-2.4 [facility] Automated lymphocyte count a s percentage of total leukocytesOrdered By: Reji Ramirezalyssa on 05-03-2024 Lymphocytes/100 WBC Auto (Unsp spec) 16.1 % Low 19-41 [facility] Basophil percentageOrdered B y: Reji Reyna on 05-03-2024 Basophils/100 WBC (Bld) 0.6 % 0-1 [facility] Bilirubin Test strip Ql (U)O rdered By: Reji Ramirezalyssa on 05-03-2024 Bilirubin Ql (U) Negative Negative [facility] Bilirubin, totalOrdered By: Reji Gopalrejialyssa on 05-03-2024 Bilirubin [Mass/Vol] 0.60 mg/dL 0.20-1.00 [facility] Comment on above: For patients on eltr ombopag therapy, use of Dimension Walker TBIL is not recommended. Blood urea nitrogen (BUN)/cr eatinine ratioOrdered By: Reji Reyna on 05-03-2024 Urea nitrogen/Creatinine [Mass ratio] 22.8 mg/mg High 10-20 [facility] Carbon dioxide measurementOr dered By: Reji Reyna on 05-03-2024 CO2 [Moles/Vol] 26.0 mmol/L 21.0-32.0 [facility] Chloride measurementOrdered By: Reji Reyna on 05-03-2024 Chloride [Moles/Vol] 108 mmol/L High 98-107 [facility] Eosinophil percentageOrdered By: Reji Reyna on 05-03-2024 Eosinophils/100 WBC (Bld) 1.1 % 0-5 [facility] Erythrocyte distribution wid th (RBC) [Ratio]Ordered By: Reji Reyna on 05-03-2024 Erythrocyte distribution width (RBC) [Entitic vol] 62.4 fL High 35.1-43.9 [facility] Erythrocyte distribution wid th ratioOrdered By: Reji Reyna on 05-03-2024 Erythrocyte distribution width (RBC) [Ratio] 17.4 % High 11.6-14.6 [facility] Erythrocyte distribution wid th standard deviationOrdered By: Reji Reyna on 05-03-2024 Erythrocyte distribution width (RBC) [Ratio] 62.4 fl High 35.1-43.9 [facility] Estimated glomerular filtrat ion rate (GFR) AmericanOrdered By: Reji Reyna on 05-03-2024 Estimated GFR (MDRD) Amer 95 mL/min >60 [facility] Comment on above: GFR Calc Glomerular filtration rate ( GFR) estimationOrdered By: Reji Reyna on 05-03-2024 Estimated GFR (MDRD) Non-Af Amer 78 mL/min >60 [facility] Comment on above: Non- GFR Calc GFR/1.73 sq M.predicted among non-blacks MDRD (S/P/Bld) [Vol rate/Area] 78 mL/min/{1.73_m2} >60 [facility] Comment on above: Non- GFR Calc Glucose Ql (U)Ordered By: Angelito Reyna on 05-03-2024 Urine Glucose (UA) Normal mg/dl Normal [facility] Glucose measurementOrdered B y: Reji Reyna on 05-03-2024 Glucose [Mass/Vol] 69 mg/dL Low 74-106 [facility] Hematocrit Auto (Bld) [Volum e fraction]Ordered By: Reji Reyna on 05-03-2024 Hematocrit (Bld) [Volume fraction] 29.8 % Low 37-47 [facility] Hemoglobin measurementOrdere d By: Reji Reyna on 05-03-2024 Hemoglobin (Bld) [Mass/Vol] 9.1 g/dL Low 12.0-15.0 [facility] Immature granulocytes/100 WB C Auto (Bld)Ordered By: Reji Reyna on 05-03-2024 Immature granulocytes/100 WBC (Bld) 0.400 % 0.0-0.9 [facility] Comment on above: IG% - Immature Granu locytes (promyelocytes, myelocytes and metamyelocytes) > 1% indicates that a LEFT SHIFT is Present. Ketones Test strip Ql (U)Ord ered By: Reji Reyna on 05-03-2024 Ketones Ql (U) Negative Negative [facility] Laboratory - Chemistry and C hemistry - challengeOrdered By: Reji Reyna on 05-03-2024 AST [Catalytic activity/Vol] 34 U/L 15-37 [facility] Lymphocytes Auto (Unsp spec) [#/Vol]Ordered By: Reji Reyna on 05-03-2024 Lymphocytes (Bld) [#/Vol] 1.13 10*3/uL 0.83-4.51 [facility] Lymphocytes/100 WBC Auto (Un sp spec)Ordered By: Reji Reyna on 05-03-2024 Lymphocytes/100 WBC (Bld) 16.1 % Low 19-41 [facility] MCV (mean corpuscular volume ) determinationOrdered By: Reji Reyna on 05-03-2024 MCV (RBC) [Entitic vol] 99.0 fL 81-99 [facility] Mean corpuscular hemoglobin (MCH) determinationOrdered By: Reji Reyna on 05-03-2024 MCH (RBC) [Entitic mass] 30.2 pg 27.0-32.0 [facility] Mean corpuscular hemoglobin concentration (MCHC) determinationOrdered By: Reji Reyna on 05-03-2024 MCHC (RBC) [Mass/Vol] 30.5 g/dL Low 32-36 [facility] Mean platelet volume determi nationOrdered By: Reji Reyna on 05-03-2024 Platelet mean volume (Bld) [Entitic vol] 9.4 fL 6.2-12.0 [facility] Monocyte percentageOrdered B y: Reji Reyna on 05-03-2024 Monocytes/100 WBC (Bld) 9.7 % 0-10 [facility] Neutrophil percentageOrdered By: Reji Reyna on 05-03-2024 Neutrophils/100 WBC (Bld) 72.1 % High 47-70 [facility] Nitrite Test strip Ql (U)Ord ered By: Reij Reyna on 05-03-2024 Nitrite Ql (U) Negative Negative [facility] Nucleated red blood cell per centageOrdered By: Reji Reyna on 05-03-2024 Nucleated RBC/100 WBC (Bld) [Ratio] 0 % 0-5 [facility] Platelet countOrdered By: Angelito Reyna on 05-03-2024 Platelets (Bld) [#/Vol] 163 10*3/uL 150-450 [facility] Potassium measurementOrdered By: Reji Reyna on 05-03-2024 Potassium [Moles/Vol] 4.3 mmol/L 3.5-5.1 [facility] Protein Test strip Ql (U)Ord ered By: Reji Reyna on 05-03-2024 Protein Ql (U) Negative Negative [facility] RBC Auto (Bld) [#/Vol]Ordere d By: Reji Reyna on 05-03-2024 RBC (Bld) [#/Vol] 3.01 10*6/uL Low 4.2-5.4 [facility] Serum anion gap measurementO rdered By: Reji Reyna on 05-03-2024 Anion gap [Moles/Vol] 7 mmol/L 5-15 [facility] Serum globulin measurementOr dered By: Reji Reyna on 05-03-2024 Globulin (S) [Mass/Vol] 4.8 g/dL High 2.2-4.2 [facility] Serum or plasma alanine cheatham otransferase (ALT) measurementOrdered By: Reji Reyna on 05-03-2024 ALT [Catalytic activity/Vol] 31 U/L 13-56 [facility] Serum or plasma albumin yonatan urement (mass/volume)Ordered By: Reji Reyna on 05-03-2024 Albumin [Mass/Vol] 2.3 g/dL Low 3.2-5.0 [facility] Serum or plasma alkaline shannon sphatase measurementOrdered By: Reji Reyna on 05-03-2024 ALP [Catalytic activity/Vol] 57 U/L 45-117 [facility] Serum or plasma calcium yonatan urement (mass/volume)Ordered By: Reji Reyna on 05-03-2024 Calcium [Mass/Vol] 8.9 mg/dL 8.5-10.1 [facility] Serum or plasma creatinine m easurement (mass/volume)Ordered By: Reji Reyna on 05-03-2024 Creatinine [Mass/Vol] 0.74 mg/dL 0.55-1.02 [facility] Comment on above: The validity of the calculated GFR & GFRAA in patients over 70 years has not been determined. Clinical correlation is essential. Serum or plasma thyroid stim ulating hormone (TSH) measurement (units/volume)Ordered By: Reji Reyna on 05-03-2024 TSH Qn 1.850 uIU/mL 0.358-3.740 [facility] Serum or plasma urea nitroge n measurement (mass/volume)Ordered By: Reji Reyna on 05-03-2024 Urea nitrogen [Mass/Vol] 17 mg/dL 7-18 [facility] Sodium levelOrdered By: Jas Reyna on 05-03-2024 Sodium [Moles/Vol] 141 mmol/L 136-145 [facility] TSH QnOrdered By: Reji Reyna on 05-03-2024 Thyroid Stimulating Hormone (TSH) 1.850 uIU/mL 0.358-3.740 [facility] Total proteinOrdered By: Fredy Reyna on 05-03-2024 Protein [Mass/Vol] 7.1 g/dL 6.4-8.2 [facility] Urine blood detectionOrdered By: Reji Reyna on 05-03-2024 Urine Occult Blood 50 /ul High Negative [facility] Urine clarityOrdered By: Fredy Reyna on 05-03-2024 Clarity (U) Sl. Cloudy Clear [facility] Urine color determinationOrd ered By: Reji Reyna on 05-03-2024 Color (U) Yellow Yellow [facility] Urine cultureOrdered By: Fredy Reyna on 05-03-2024 Bacteria identified Cx Nom (U) Presumptive E. coli Abnormal [facility] Urine glucose detectionOrder ed By: Reji Reyna on 05-03-2024 Glucose Ql (U) Normal mg/dl Normal [facility] Urine leukocyte esterase det ection by dipstickOrdered By: Reji Reyna on 05-03-2024 Leukocyte esterase Test strip Ql (U) 500 /ul High Negative [facility] Urine pHOrdered By: Deloris Reyna on 05-03-2024 pH (U) 6.5 [pH] 5.0 - 8.0 [facility] Urine specific gravity measu rementOrdered By: Reji Reyna on 05-03-2024 Specific gravity (U) [Rel density] 1.010 1.002-1.030 [facility] Urine urobilinogen measureme ntOrdered By: Reji Reyna on 05-03-2024 Urobilinogen Ql (U) Normal mg/dl Normal [facility] Urobilinogen Ql (U)Ordered B y: Reji Reyna on 05-03-2024 Urine Urobilinogen Normal mg/dl Normal [facility] White blood cell (WBC) count Ordered By: Reji Reyna on 05-03-2024 WBC (Bld) [#/Vol] 7.0 10*3/uL 4.4-11.0 [facility] Copper, serumOrdered By: Fredy Reyna on 04-23-2024 Serum Copper 93 ug/dL 80-158 [facility] Comment on above: Detection Limit = 5P erformed at: [facility] [id number] Director: Jeremiah Bates MD, Phone: [phone] Absolute lymphocyte countOrd ered By: Reji Reyna on 04-05-2024 Lymphocytes Auto (Unsp spec) [#/Vol] 0.90 10*3/uL 0.83-4.51 [facility] Absolute neutrophil countOrd ered By: Reji Reyna on 04-05-2024 Neutrophils (Bld) [#/Vol] 3.6 10*3/uL 2.0-7.7 [facility] Albumin to globulin ratioOrd ered By: Reji Reyna on 04-05-2024 Albumin/Globulin [Mass ratio] 0.5 {ratio} Low 0.9-2.4 [facility] Automated lymphocyte count a s percentage of total leukocytesOrdered By: Reji Reyna on 04-05-2024 Lymphocytes/100 WBC Auto (Unsp spec) 17.3 % Low 19-41 [facility] Basophil percentageOrdered B y: Reji Reyna on 04-05-2024 Basophils/100 WBC (Bld) 0.8 % 0-1 [facility] Bilirubin, totalOrdered By: Reji Reyna on 04-05-2024 Bilirubin [Mass/Vol] 0.60 mg/dL 0.20-1.00 [facility] Comment on above: For patients on eltr ombopag therapy, use of Dimension Walker TBIL is not recommended. Blasts/100 WBC (Bld)Ordered By: Jasongbe Jamese on 04-05-2024 Blast Cells % 0.04 % High 0-0 [facility] Blood band neutrophil count as percentage of total leukocytesOrdered By: Efewongbe Oleghe on 04-05-2024 Band form neutrophils/100 WBC (Bld) 0.04 % 0-5 [facility] Blood basophils/100 leukocyt esOrdered By: Efewongbe Oleghe on 04-05-2024 Basophils/100 WBC (Bld) 0.04 % 0-1 [facility] Blood blasts/100 leukocytesO rdered By: Efewongbe Gopalghe on 04-05-2024 Blasts/100 WBC (Bld) 0.04 % High 0-0 [facility] Blood eosinophils/100 leukoc ytesOrdered By: Efewongbe Oleghe on 04-05-2024 Eosinophils/100 WBC (Bld) 0.04 % 0-5 [facility] Blood leukocytes other/100 l eukocytesOrdered By: Efewongbe Jamese on 04-05-2024 WBC other/100 WBC (Bld) 0.04 % [facility] Blood lymphocytes/100 leukoc ytesOrdered By: Efmerylongbe Jamese on 04-05-2024 Lymphocytes/100 WBC (Bld) 0.04 % Low 19-41 [facility] Blood manual differential co mment interpretation (narrative result)Ordered By: Jasongbe Jamese on 04-05-2024 Manual differential comment Colton (Bld) [Interp] SCANNED [facility] Blood metamyelocytes/100 bailee kocytesOrdered By: Efewongbe Oleghe on 04-05-2024 Metamyelocytes/100 WBC (Bld) 0.04 % 0-1 [facility] Blood monocytes/100 leukocyt esOrdered By: Efewongbe Oleghe on 04-05-2024 Monocytes/100 WBC (Bld) 0.04 % 0-10 [facility] Blood promyelocytes/100 leuk ocytesOrdered By: Efewongbe Oleghe on 04-05-2024 Promyelocytes/100 WBC (Bld) 0.04 % High 0-0 [facility] Blood segmented neutrophils/ 100 leukocytesOrdered By: Efewongbe Oleghe on 04-05-2024 Segmented neutrophils/100 WBC (Bld) 0.04 % Low 47-70 [facility] Blood urea nitrogen (BUN)/cr eatinine ratioOrdered By: Reji Reyna on 04-05-2024 Urea nitrogen/Creatinine [Mass ratio] 23.3 mg/mg High 10-20 [facility] Carbon dioxide measurementOr dered By: Reji Reyna on 04-05-2024 CO2 [Moles/Vol] 27.0 mmol/L 21.0-32.0 [facility] Cells counted Molgen (Bld/Ti ss) [#]Ordered By: Reji Reyna on 04-05-2024 Differential Total Cells Counted 0.04 MANUAL DIFF [facility] Chloride measurementOrdered By: Reji Reyna on 04-05-2024 Chloride [Moles/Vol] 108 mmol/L High 98-107 [facility] Eosinophil percentageOrdered By: Reji Reyna on 04-05-2024 Eosinophils/100 WBC (Bld) 1.3 % 0-5 [facility] Erythrocyte distribution wid th (RBC) [Ratio]Ordered By: Reji Reyna on 04-05-2024 Erythrocyte distribution width (RBC) [Entitic vol] 67.1 fL High 35.1-43.9 [facility] Erythrocyte distribution wid th ratioOrdered By: Reji Reyna on 04-05-2024 Erythrocyte distribution width (RBC) [Ratio] 18.7 % High 11.6-14.6 [facility] Erythrocyte distribution wid th standard deviationOrdered By: Reji Reyna on 04-05-2024 Erythrocyte distribution width (RBC) [Ratio] 67.1 fl High 35.1-43.9 [facility] Estimated glomerular filtrat ion rate (GFR) AmericanOrdered By: Reji Reyna on 04-05-2024 Estimated GFR (MDRD) Amer 104 mL/min >60 [facility] Comment on above: GFR Calc Glomerular filtration rate ( GFR) estimationOrdered By: Reji Reyna on 04-05-2024 Estimated GFR (MDRD) Non-Af Amer 86 mL/min >60 [facility] Comment on above: Non- GFR Calc GFR/1.73 sq M.predicted among non-blacks MDRD (S/P/Bld) [Vol rate/Area] 86 mL/min/{1.73_m2} >60 [facility] Comment on above: Non- GFR Calc Glucose measurementOrdered B y: Reji Reyna on 04-05-2024 Glucose [Mass/Vol] 70 mg/dL Low 74-106 [facility] Hematocrit Auto (Bld) [Volum e fraction]Ordered By: arline Reyna on 04-05-2024 Hematocrit (Bld) [Volume fraction] 26.8 % Low 37-47 [facility] Hemoglobin measurementOrdere d By: Reji Reyna on 04-05-2024 Hemoglobin (Bld) [Mass/Vol] 8.9 g/dL Low 12.0-15.0 [facility] Immature granulocytes/100 WB C Auto (Bld)Ordered By: Reji Reyna on 04-05-2024 Immature granulocytes/100 WBC (Bld) 0.600 % 0.0-0.9 [facility] Comment on above: IG% - Immature Granu locytes (promyelocytes, myelocytes and metamyelocytes) > 1% indicates that a LEFT SHIFT is Present. Laboratory - Chemistry and C hemistry - challengeOrdered By: arline Reyna on 04-05-2024 AST [Catalytic activity/Vol] 33 U/L 15-37 [facility] Laboratory - Hematology and Cell countsOrdered By: Reji Reyna on 04-05-2024 Anisocytosis Ql (Bld) 2+ [facility] Lymphocytes Auto (Unsp spec) [#/Vol]Ordered By: arline Reyna on 04-05-2024 Lymphocytes (Bld) [#/Vol] 0.90 10*3/uL 0.83-4.51 [facility] Lymphocytes/100 WBC Auto (Un sp spec)Ordered By: Reji Reyna on 04-05-2024 Lymphocytes/100 WBC (Bld) 17.3 % Low 19-41 [facility] MCV (mean corpuscular volume ) determinationOrdered By: Reji Reyna on 04-05-2024 MCV (RBC) [Entitic vol] 99.6 fL High 81-99 [facility] Manual differential comment Colton (Bld) [Interp]Ordered By: Reji Reyna on 04-05-2024 Differential Comment SCANNED [facility] Mean corpuscular hemoglobin (MCH) determinationOrdered By: Reji Reyna on 04-05-2024 MCH (RBC) [Entitic mass] 33.1 pg High 27.0-32.0 [facility] Mean corpuscular hemoglobin concentration (MCHC) determinationOrdered By: Reji Reyna on 04-05-2024 MCHC (RBC) [Mass/Vol] 33.2 g/dL 32-36 [facility] Mean platelet volume determi nationOrdered By: Reji Reyna on 04-05-2024 Platelet mean volume (Bld) [Entitic vol] 9.9 fL 6.2-12.0 [facility] Monocyte percentageOrdered B y: Reji Reyna on 04-05-2024 Monocytes/100 WBC (Bld) 10.4 % High 0-10 [facility] Myelocyte %Ordered By: Matias Reyna on 04-05-2024 Myelocytes/100 WBC (Bld) 0.04 % High 0-0 [facility] Neutrophil percentageOrdered By: Reji Reyna on 04-05-2024 Neutrophils/100 WBC (Bld) 69.6 % 47-70 [facility] Nucleated red blood cell per centageOrdered By: Reji Reyna on 04-05-2024 Nucleated RBC/100 WBC (Bld) [Ratio] 0 % 0-5 [facility] Plasma cell percentageOrdere d By: Reji Reyna on 04-05-2024 Plasma Cells % (manual) 0.04 % [facility] Platelet countOrdered By: Angelito Reyna on 04-05-2024 Platelets (Bld) [#/Vol] 163 10*3/uL 150-450 [facility] Potassium measurementOrdered By: Reji Reyna on 04-05-2024 Potassium [Moles/Vol] 4.0 mmol/L 3.5-5.1 [facility] Promyelocytes/100 WBC (Bld)O rdered By: Reji Reyna on 04-05-2024 Promyelocytes % 0.04 % High 0-0 [facility] RBC Auto (Bld) [#/Vol]Ordere d By: Reji Reyna on 04-05-2024 RBC (Bld) [#/Vol] 2.69 10*6/uL Low 4.2-5.4 [facility] Segmented neutrophils/100 WB C (Bld)Ordered By: Reji Reyna on 04-05-2024 Neutrophils/100 WBC (Bld) 0.04 % Low 47-70 [facility] Serum anion gap measurementO rdered By: Reji Reyna on 04-05-2024 Anion gap [Moles/Vol] 4 mmol/L Low 5-15 [facility] Serum globulin measurementOr dered By: Reji Reyna on 04-05-2024 Globulin (S) [Mass/Vol] 5.1 g/dL High 2.2-4.2 [facility] Serum or plasma alanine cheatham otransferase (ALT) measurementOrdered By: Reji Reyna on 04-05-2024 ALT [Catalytic activity/Vol] 28 U/L 13-56 [facility] Serum or plasma albumin yonatan urement (mass/volume)Ordered By: Reji Reyna on 04-05-2024 Albumin [Mass/Vol] 2.3 g/dL Low 3.2-5.0 [facility] Serum or plasma alkaline shannon sphatase measurementOrdered By: Reji Reyna on 04-05-2024 ALP [Catalytic activity/Vol] 64 U/L 45-117 [facility] Serum or plasma calcium yonatan urement (mass/volume)Ordered By: Reji Reyna on 04-05-2024 Calcium [Mass/Vol] 8.8 mg/dL 8.5-10.1 [facility] Serum or plasma creatinine m easurement (mass/volume)Ordered By: Reji Reyna on 04-05-2024 Creatinine [Mass/Vol] 0.69 mg/dL 0.55-1.02 [facility] Comment on above: The validity of the calculated GFR & GFRAA in patients over 70 years has not been determined. Clinical correlation is essential. Serum or plasma urea nitroge n measurement (mass/volume)Ordered By: Reji Reyna on 04-05-2024 Urea nitrogen [Mass/Vol] 16 mg/dL 7-18 [facility] Sodium levelOrdered By: Jas ailyn Maribell on 04-05-2024 Sodium [Moles/Vol] 139 mmol/L 136-145 [facility] Total cell countOrdered By: Reji Reyna on 04-05-2024 Cells counted Molgen (Bld/Tiss) [#] 0.04 MANUAL DIFF [facility] Total proteinOrdered By: Fredy edwardogarfield Reyna on 04-05-2024 Protein [Mass/Vol] 7.4 g/dL 6.4-8.2 [facility] WBC other/100 WBC (Bld)Order ed By: Reji Reyna on 04-05-2024 Other Cells % 0.04 % [facility] White blood cell (WBC) count Ordered By: Reji Reyna on 04-05-2024 WBC (Bld) [#/Vol] 5.2 10*3/uL 4.4-11.0 [facility] 17-[id number] DOrdered By: Alyssa ginoailyn Reyna on 03-02-2024 Vitamin D 25-Hydroxy 35.7 ng/mL [facility] Comment on above: Vitamin D 25(OH) Sta tus Range Deficiency <20 ng/mL (50nmol/L) Insufficiency 20 - 30 ng/mL (50 - 75 nmol/L) Sufficiency 30 - 100 ng/mL (75 - 250 nmol/L) Toxicity >100 ng/mL (>250 nmol/L) Absolute neutrophil countOrd ered By: Reji Reyna on 03-01-2024 Neutrophils (Bld) [#/Vol] 4.2 10*3/uL 2.0-7.7 [facility] Albumin to globulin ratioOrd ered By: Reji Reyna on 03-01-2024 Albumin/Globulin [Mass ratio] 0.4 {ratio} Low 0.9-2.4 [facility] Basophil percentageOrdered B y: Reji Reyna on 03-01-2024 Basophils/100 WBC (Bld) 0.7 % 0-1 [facility] Bilirubin, totalOrdered By: Jamisongarfield Herronrejialyssa on 03-01-2024 Bilirubin [Mass/Vol] 0.50 mg/dL 0.20-1.00 [facility] Comment on above: For patients on eltr ombopag therapy, use of Dimension Walker TBIL is not recommended. Blood urea nitrogen (BUN)/cr eatinine ratioOrdered By: Reji Reyna on 03-01-2024 Urea nitrogen/Creatinine [Mass ratio] 20.9 mg/mg High 10-20 [facility] Carbon dioxide measurementOr dered By: Reji Herronrejialyssa on 03-01-2024 CO2 [Moles/Vol] 22.0 mmol/L 21.0-32.0 [facility] Chloride measurementOrdered By: Reji Herronrejialyssa on 03-01-2024 Chloride [Moles/Vol] 108 mmol/L High 98-107 [facility] Eosinophil percentageOrdered By: Jamisongarfield Herronrejialyssa on 03-01-2024 Eosinophils/100 WBC (Bld) 1.3 % 0-5 [facility] Erythrocyte distribution wid th (RBC) [Ratio]Ordered By: Reji Herronrejialyssa on 03-01-2024 Erythrocyte distribution width (RBC) [Entitic vol] 56.0 fL High 35.1-43.9 [facility] Erythrocyte distribution wid th ratioOrdered By: Reji Herronrejialyssa on 03-01-2024 Erythrocyte distribution width (RBC) [Ratio] 15.8 % High 11.6-14.6 [facility] Estimated glomerular filtrat ion rate (GFR) AmericanOrdered By: Reji Reyna on 03-01-2024 Estimated GFR (MDRD) Amer 107 mL/min >60 [facility] Comment on above: GFR Calc Glomerular filtration rate ( GFR) estimationOrdered By: Reji Reyna on 03-01-2024 Estimated GFR (MDRD) Non-Af Amer 88 mL/min >60 [facility] Comment on above: Non- GFR Calc Glucose measurementOrdered B y: Reji Reyna on 03-01-2024 Glucose [Mass/Vol] 68 mg/dL Low 74-106 [facility] Hematocrit Auto (Bld) [Volum e fraction]Ordered By: Reji Reyna on 03-01-2024 Hematocrit (Bld) [Volume fraction] 28.3 % Low 37-47 [facility] Hemoglobin measurementOrdere d By: Reji Reyna on 03-01-2024 Hemoglobin (Bld) [Mass/Vol] 8.3 g/dL Low 12.0-15.0 [facility] Immature granulocytes/100 WB C Auto (Bld)Ordered By: Reji Reyna on 03-01-2024 Immature granulocytes/100 WBC (Bld) 0.700 % 0.0-0.9 [facility] Comment on above: IG% - Immature Granu locytes (promyelocytes, myelocytes and metamyelocytes) > 1% indicates that a LEFT SHIFT is Present. Laboratory - Chemistry and C hemistry - challengeOrdered By: Reji Reyna on 03-01-2024 AST [Catalytic activity/Vol] 34 U/L 15-37 [facility] Lymphocytes Auto (Unsp spec) [#/Vol]Ordered By: Reji Reyna on 03-01-2024 Lymphocytes (Bld) [#/Vol] 1.02 10*3/uL 0.83-4.51 [facility] Lymphocytes/100 WBC Auto (Un sp spec)Ordered By: Reji Reyna on 03-01-2024 Lymphocytes/100 WBC (Bld) 16.9 % Low 19-41 [facility] MCV (mean corpuscular volume ) determinationOrdered By: Reji Reyna on 03-01-2024 MCV (RBC) [Entitic vol] 99.6 fL High 81-99 [facility] Mean corpuscular hemoglobin (MCH) determinationOrdered By: Reji Reyna on 03-01-2024 MCH (RBC) [Entitic mass] 29.2 pg 27.0-32.0 [facility] Mean corpuscular hemoglobin concentration (MCHC) determinationOrdered By: Reji Reyna on 03-01-2024 MCHC (RBC) [Mass/Vol] 29.3 g/dL Low 32-36 [facility] Mean platelet volume determi nationOrdered By: Efmerylonggarfield Reyna on 03-01-2024 Platelet mean volume (Bld) [Entitic vol] 10.1 fL 6.2-12.0 [facility] Monocyte percentageOrdered B y: Efarline Reyna on 03-01-2024 Monocytes/100 WBC (Bld) 11.9 % High 0-10 [facility] Neutrophil percentageOrdered By: Efmerylonggarfield Ramireze on 03-01-2024 Neutrophils/100 WBC (Bld) 68.5 % 47-70 [facility] Nucleated red blood cell per centageOrdered By: Reji Reyna on 03-01-2024 Nucleated RBC/100 WBC (Bld) [Ratio] 0.7 % 0-5 [facility] Platelet countOrdered By: Ef arline Reyna on 03-01-2024 Platelets (Bld) [#/Vol] 217 10*3/uL 150-450 [facility] Potassium measurementOrdered By: Reji Reyna on 03-01-2024 Potassium [Moles/Vol] 4.0 mmol/L 3.5-5.1 [facility] RBC Auto (Bld) [#/Vol]Ordere d By: Reji Reyna on 03-01-2024 RBC (Bld) [#/Vol] 2.84 10*6/uL Low 4.2-5.4 [facility] Serum anion gap measurementO rdered By: Reji Reyna on 03-01-2024 Anion gap [Moles/Vol] 7 mmol/L 5-15 [facility] Serum globulin measurementOr dered By: Reji Reyna on 03-01-2024 Globulin (S) [Mass/Vol] 5.7 g/dL High 2.2-4.2 [facility] Serum or plasma alanine cheatham otransferase (ALT) measurementOrdered By: Angelitomerylmichaelgarfield Herronrejialyssa on 03-01-2024 ALT [Catalytic activity/Vol] 19 U/L 13-56 [facility] Serum or plasma albumin yonatan urement (mass/volume)Ordered By: Reji Gopalrejialyssa on 03-01-2024 Albumin [Mass/Vol] 2.2 g/dL Low 3.2-5.0 [facility] Serum or plasma alkaline shannon sphatase measurementOrdered By: Jamisongarfield Herronrejialyssa on 03-01-2024 ALP [Catalytic activity/Vol] 63 U/L 45-117 [facility] Serum or plasma calcium yonatan urement (mass/volume)Ordered By: Jamisongarfield Herronrejialyssa on 03-01-2024 Calcium [Mass/Vol] 8.8 mg/dL 8.5-10.1 [facility] Serum or plasma creatinine m easurement (mass/volume)Ordered By: Angelitomerylailyn Gopalrejialyssa on 03-01-2024 Creatinine [Mass/Vol] 0.67 mg/dL 0.55-1.02 [facility] Comment on above: The validity of the calculated GFR & GFRAA in patients over 70 years has not been determined. Clinical correlation is essential. Serum or plasma urea nitroge n measurement (mass/volume)Ordered By: Angelitomerylmichaelgarfield Herronrejialyssa on 03-01-2024 Urea nitrogen [Mass/Vol] 14 mg/dL 7-18 [facility] Sodium levelOrdered By: Angelitomeryl ailyn Gopalrejialyssa on 03-01-2024 Sodium [Moles/Vol] 137 mmol/L 136-145 [facility] Total proteinOrdered By: Fredy ritter Gopalrejialyssa on 03-01-2024 Protein [Mass/Vol] 7.9 g/dL 6.4-8.2 [facility] White blood cell (WBC) count Ordered By: Angelitomerylailyn Gopalrejialyssa on 03-01-2024 WBC (Bld) [#/Vol] 6.1 10*3/uL 4.4-11.0 [facility] CBC W Auto Differential pane l (Bld)on 02-24-2024 Basophils (Bld) [#/Vol] 0.04 10*3/uL [facility] Basophils/100 WBC (Bld) 0.4 % [facility] Differential cell count method Nom (Bld) Auto [facility] Eosinophils (Bld) [#/Vol] 0.04 10*3/uL [facility] Eosinophils/100 WBC (Bld) 0.4 % [facility] Erythrocyte distribution width (RBC) [Ratio] 15.2 % High 11.5 - 15.0 % [facility] Hematocrit (Bld) [Volume fraction] 28.3 % Low 36.0 - 46.0 % [facility] Hemoglobin (Bld) [Mass/Vol] 8.5 g/dL Low 11.5 - 15.5 g/dL [facility] Immature granulocytes (Bld) [#/Vol] 0.05 10*3/uL [facility] Immature granulocytes/100 WBC (Bld) 0.5 % [facility] Interpretation and review of laboratory results Abnormal [facility] Lymphocytes (Bld) [#/Vol] 0.92 10*3/uL Low [facility] Lymphocytes/100 WBC (Bld) 9.7 % [facility] MCH (RBC) [Entitic mass] 28.1 pg 26.0 - 34.0 pg [facility] MCHC (RBC) [Mass/Vol] 30.0 g/dL Low 30.5 - 36.0 g/dL [facility] MCV (RBC) [Entitic vol] 93.4 fL 80.0 - 100.0 fL [facility] Monocytes (Bld) [#/Vol] 1.15 10*3/uL High [facility] Monocytes/100 WBC (Bld) 12.1 % [facility] Neutrophils (Bld) [#/Vol] 7.29 10*3/uL [facility] Neutrophils/100 WBC (Bld) 76.9 % [facility] Nucleated RBC (Bld) [#/Vol] [facility] Nucleated RBC/100 WBC (Bld) [Ratio] 0.0 % /100 WBC [facility] Platelet mean volume (Bld) [Entitic vol] 9.0 fL 9.0 - 12.7 fL [facility] Platelets (Bld) [#/Vol] 243 10*3/uL [facility] RBC (Bld) [#/Vol] 3.03 10*6/uL Low 3.90 - 5.2 0 m/uL [facility] WBC (Bld) [#/Vol] 9.49 10*3/uL [facility] Comprehensive metabolic 2000 panelOrdered By: Pam Tate on 02-24-2024 Albumin [Mass/Vol] 3.0 g/dL Low 3.9 - 4.9 g/dL [facility] ALP [Catalytic activity/Vol] 69 U/L 34 - 123 U/L [facility] ALT [Catalytic activity/Vol] 13 U/L 7 - 38 U/L [facility] Anion gap [Moles/Vol] 10 mmol/L 8 - 15 mmol/L [facility] AST [Catalytic activity/Vol] 21 U/L 13 - 35 U/L [facility] Bilirubin [Mass/Vol] 0.6 mg/dL 0.2 - 1 .3 mg/dL [facility] Calcium [Mass/Vol] 8.6 mg/dL 8.5 - 10. 2 mg/dL [facility] Chloride [Moles/Vol] 101 mmol/L 98 - 10 7 mmol/L [facility] CO2 [Moles/Vol] 21 mmol/L Low 22 - 30 mmol/L [facility] Creatinine [Mass/Vol] 0.67 mg/dL 0.58 - 0.96 mg/dL [facility] GFR/1.73 sq M.predicted among non-blacks MDRD (S/P/Bld) [Vol rate/Area] 85 mL/min/{1.73_m2} - PINF [facility] Comment on above: Estimated Glomerular Filtration Rate [...] 162 mg/dL High 74 - 99 mg/dL [facility] Comment on above: The [place] Di[employer] Association (ADA) provides guidance for [...] Standards of Medical Care in Diabetes 2016, [place] [employer]. Diabetes Care. 2016.39(Suppl 1). Interpretation and review of laboratory results Abnormal [facility] Potassium [Moles/Vol] 4.4 mmol/L 3.7 - 5.1 mmol/L [facility] Protein [Mass/Vol] 8.0 g/dL 6.3 - 8.0 g/dL [facility] Sodium [Moles/Vol] 132 mmol/L Low 136 - 144 mmol/L [facility] Urea nitrogen [Mass/Vol] 16 mg/dL 7 - 21 mg/dL [facility] ESR Westergren method (Bld) [Velocity]on 02-24-2024 ESR (Bld) [Velocity] 123 mm/h High [facility] Interpretation and review of laboratory results Abnormal [facility] CBC W Auto Differential pane l (Bld)on 11-25-2023 Basophils (Bld) [#/Vol] 0.03 10*3/uL [facility] Basophils/100 WBC (Bld) 0.6 % [facility] Differential cell count method Nom (Bld) Auto [facility] Eosinophils (Bld) [#/Vol] [facility] Eosinophils/100 WBC (Bld) 0.4 % [facility] Erythrocyte distribution width (RBC) [Ratio] 15.0 % 11.5 - 15.0 % [facility] Hematocrit (Bld) [Volume fraction] 29.7 % Low 36.0 - 46.0 % [facility] Hemoglobin (Bld) [Mass/Vol] 9.8 g/dL Low 11.5 - 15.5 g/dL [facility] Immature granulocytes (Bld) [#/Vol] [facility] Immature granulocytes/100 WBC (Bld) 0.4 % [facility] Interpretation and review of laboratory results Abnormal [facility] Lymphocytes (Bld) [#/Vol] 0.54 10*3/uL Low [facility] Lymphocytes/100 WBC (Bld) 10.4 % [facility] MCH (RBC) [Entitic mass] 33.0 pg 26.0 - 34.0 pg [facility] MCHC (RBC) [Mass/Vol] 33.0 g/dL 30.5 - 36.0 g/dL [facility] MCV (RBC) [Entitic vol] 100.0 fL 80.0 - 100.0 fL [facility] Monocytes (Bld) [#/Vol] 0.46 10*3/uL NINF [facility] Monocytes/100 WBC (Bld) 8.8 % [facility] Neutrophils (Bld) [#/Vol] 4.13 10*3/uL [facility] Neutrophils/100 WBC (Bld) 79.4 % [facility] Nucleated RBC (Bld) [#/Vol] NINF [facility] Nucleated RBC/100 WBC (Bld) [Ratio] 0.0 % /100 WBC [facility] Platelet mean volume (Bld) [Entitic vol] 8.9 fL Low 9.0 - 12.7 fL [facility] Platelets (Bld) [#/Vol] 146 10*3/uL Low [facility] RBC (Bld) [#/Vol] 2.97 10*6/uL Low 3.90 - 5.2 0 m/uL [facility] WBC (Bld) [#/Vol] 5.20 10*3/uL [facility] Comprehensive metabolic 2000 panelOrdered By: Pam Tate on 11-25-2023 Albumin [Mass/Vol] 3.5 g/dL Low 3.9 - 4.9 g/dL [facility] ALP [Catalytic activity/Vol] 80 U/L 34 - 123 U/L [facility] ALT [Catalytic activity/Vol] 22 U/L 7 - 38 U/L [facility] Anion gap [Moles/Vol] 13 mmol/L 8 - 15 mmol/L [facility] AST [Catalytic activity/Vol] 31 U/L 13 - 35 U/L [facility] Bilirubin [Mass/Vol] 0.6 mg/dL 0.2 - 1 .3 mg[facility] Calcium [Mass/Vol] 9.3 mg/dL 8.5 - 10. 2 mg/dL [facility] Chloride [Moles/Vol] 105 mmol/L 98 - 10 7 mmol/L [facility] CO2 [Moles/Vol] 21 mmol/L Low 22 - 30 mmol/L [facility] Creatinine [Mass/Vol] 0.63 mg/dL 0.58 - 0.96 mg/dL [facility] GFR/1.73 sq M.predicted among non-blacks MDRD (S/P/Bld) [Vol rate/Area] 86 mL/min/{1.73_m2} - PINF [facility] Comment on above: Estimated Glomerular Filtration Rate [...] 148 mg/dL High 74 - 99 mg/dL [facility] Comment on above: The [place] Di[employer] (ADA) provides guidance for [...] Standards of Medical Care in Diabetes 2016, [place] [employer]. Diabetes Care. 2016.39(Suppl 1). Interpretation and review of laboratory results Abnormal [facility] Potassium [Moles/Vol] 4.0 mmol/L 3.7 - 5.1 mmol/L [facility] Protein [Mass/Vol] 8.0 g/dL 6.3 - 8.0 g/dL [facility] Sodium [Moles/Vol] 139 mmol/L 136 - 144 mmol/L [facility] Urea nitrogen [Mass/Vol] 15 mg/dL 7 - 21 mg/dL [facility] ESR Westergren method (Bld) [Velocity]on 11-25-2023 ESR (Bld) [Velocity] 129 mm/h High [facility] Interpretation and review of laboratory results Abnormal [facility] CBC W Auto Differential pane l (Bld)on 08-19-2023 Basophils (Bld) [#/Vol] 0.05 10*3/uL [facility] Basophils/100 WBC (Bld) 0.6 % [facility] Differential cell count method Nom (Bld) Auto [facility] Eosinophils (Bld) [#/Vol] 0.07 10*3/uL [facility] Eosinophils/100 WBC (Bld) 0.8 % [facility] Erythrocyte distribution width (RBC) [Ratio] 14.6 % 11.5 - 15.0 % [facility] Hematocrit (Bld) [Volume fraction] 34.7 % Low 36.0 - 46.0 % [facility] Hemoglobin (Bld) [Mass/Vol] 11.6 g/dL 11.5 - 15.5 g/dL [facility] Immature granulocytes (Bld) [#/Vol] 0.03 10*3/uL [facility] Immature granulocytes/100 WBC (Bld) 0.4 % [facility] Interpretation and review of laboratory results Abnormal [facility] Lymphocytes (Bld) [#/Vol] 0.67 10*3/uL Low [facility] Lymphocytes/100 WBC (Bld) 8.1 % [facility] MCH (RBC) [Entitic mass] 33.1 pg 26.0 - 34.0 pg [facility] MCHC (RBC) [Mass/Vol] 33.4 g/dL 30.5 - 36.0 g/dL [facility] MCV (RBC) [Entitic vol] 99.1 fL 80.0 - 100.0 fL [facility] Monocytes (Bld) [#/Vol] 1.02 10*3/uL High [facility] Monocytes/100 WBC (Bld) 12.3 % [facility] Neutrophils (Bld) [#/Vol] 6.42 10*3/uL [facility] Neutrophils/100 WBC (Bld) 77.8 % [facility] Nucleated RBC (Bld) [#/Vol] [facility] Nucleated RBC/100 WBC (Bld) [Ratio] 0.0 % /100 WBC [facility] Platelet mean volume (Bld) [Entitic vol] 8.7 fL Low 9.0 - 12.7 fL [facility] Platelets (Bld) [#/Vol] 169 10*3/uL [facility] RBC (Bld) [#/Vol] 3.50 10*6/uL Low 3.90 - 5.2 0 m/uL [facility] WBC (Bld) [#/Vol] 8.26 10*3/uL [facility] FERRITINon 08-19-2023 Ferritin [Mass/Vol] 147.0 ng/mL 14.7 - 205.1 ng/mL [facility] Ferritin [Mass/Vol]on 2023 Interpretation and review of laboratory results Normal [facility] Iron and Iron binding capaci ty panelon 08-19-2023 Interpretation and review of laboratory results Normal [facility] Iron [Mass/Vol] 87 ug/dL 41 - 186 ug/dL [facility] Iron binding capacity [Mass/Vol] 271 ug/dL 232 - 386 ug/dL [facility] Iron/TIBC [Molar ratio] 32.1 % 15.0 - 57.0 % [facility] C-REACTIVE PROTEINon 024 CRP [Mass/Vol] <0.9 mg/dL [facility] CBC W Auto Differential pane l (Bld)on 07-04-2023 Basophils (Bld) [#/Vol] <0.11 k/uL [facility] Basophils/100 WBC (Bld) 0.2 % [facility] Differential cell count method Nom (Bld) Auto [facility] Eosinophils (Bld) [#/Vol] 0.03 10*3/uL <0.46 k/uL [facility] Eosinophils/100 WBC (Bld) 0.3 % [facility] Erythrocyte distribution width (RBC) [Ratio] 14.8 % 11.5 - 15.0 % [facility] Hematocrit (Bld) [Volume fraction] 39.4 % 36.0 - 46.0 % [facility] Hemoglobin (Bld) [Mass/Vol] 13.2 g/dL 11.5 - 15.5 g/dL [facility] Immature granulocytes (Bld) [#/Vol] 0.06 10*3/uL <0.10 k/uL [facility] Immature granulocytes/100 WBC (Bld) 0.6 % [facility] Lymphocytes (Bld) [#/Vol] 0.84 10*3/uL Low 1.00 - 4.00 k/uL [facility] Lymphocytes/100 WBC (Bld) 8.1 % [facility] MCH (RBC) [Entitic mass] 33.0 pg 26.0 - 34.0 pg [facility] MCHC (RBC) [Mass/Vol] 33.5 g/dL 30.5 - 36.0 g/dL [facility] MCV (RBC) [Entitic vol] 98.5 fL 80.0 - 100.0 fL [facility] Monocytes (Bld) [#/Vol] 1.41 10*3/uL High <0.87 k/uL [facility] Monocytes/100 WBC (Bld) 13.6 % [facility] Neutrophils (Bld) [#/Vol] 8.02 10*3/uL High 1.45 - 7.50 k/uL [facility] Neutrophils/100 WBC (Bld) 77.2 % [facility] Nucleated RBC (Bld) [#/Vol] <0.01 k/uL [facility] Nucleated RBC/100 WBC (Bld) [Ratio] 0.0 /100 WBC [facility] Platelet mean volume (Bld) [Entitic vol] 9.4 fL 9.0 - 12.7 fL [facility] Platelets (Bld) [#/Vol] 151 10*3/uL 150 - 400 k/uL [facility] RBC (Bld) [#/Vol] 4.00 10*6/uL 3.90 - 5.2 0 m/uL [facility] WBC (Bld) [#/Vol] 10.38 10*3/uL 3.70 - 11.00 k/uL [facility] Comprehensive metabolic 2000 panelon 07-04-2023 Albumin [Mass/Vol] 3.5 g/dL Low 3.9 - 4.9 g/dL [facility] ALP [Catalytic activity/Vol] 80 U/L 34 - 123 U/L [facility] ALT [Catalytic activity/Vol] 51 U/L High 7 - 38 U/L [facility] Anion gap [Moles/Vol] 9 mmol/L 9 - 18 mmol/L [facility] AST [Catalytic activity/Vol] 43 U/L High 13 - 35 U/L [facility] Bilirubin [Mass/Vol] 0.8 mg/dL 0.2 - 1 .3 mg/dL [facility] Calcium [Mass/Vol] 9.7 mg/dL 8.5 - 10. 2 mg/dL [facility] Chloride [Moles/Vol] 105 mmol/L 97 - 10 5 mmol/L [facility] CO2 [Moles/Vol] 24 mmol/L 22 - 30 mmol/L [facility] Creatinine [Mass/Vol] 0.73 mg/dL 0.58 - 0.96 mg/dL [facility] Estimated Glomerular Filtration Rate 80 mL/min/1.73m >=60 mL/min/1.73 m [facility] Glucose [Mass/Vol] 85 mg/dL 74 - 99 mg/dL [facility] Potassium [Moles/Vol] 4.5 mmol/L 3.7 - 5.1 mmol/L [facility] Protein [Mass/Vol] 7.4 g/dL 6.3 - 8.0 g/dL [facility] Sodium [Moles/Vol] 138 mmol/L 136 - 144 mmol/L [facility] Urea nitrogen [Mass/Vol] 19 mg/dL 7 - 21 mg/dL [facility] ESR Westergren method (Bld) [Velocity]on 07-04-2023 ESR (Bld) [Velocity] 49 mm/h High 0 - 20 mm/hr [facility] RHEUMATOID FACTORon 07-04-19 24 Rheumatoid factor Qn 439 [IU]/mL High <16 IU/mL [facility] Absolute lymphocyte countOrd ered By: Reji Reyna on 06-30-2023 Lymphocytes Auto (Unsp spec) [#/Vol] 1.25 10*3/uL 0.83-4.51 [facility] Automated lymphocyte count a s percentage of total leukocytesOrdered By: Reji Reyna on 06-30-2023 Lymphocytes/100 WBC Auto (Unsp spec) 21.3 % 19-41 [facility] Basophil percentageOrdered B y: Reji Reyna on 06-30-2023 Basophils/100 WBC (Bld) 0.7 % 0-1 [facility] Bilirubin [Mass/Vol] 0.80 mg/dL 0.20-1.00 [facility] Comment on above: For patients on eltr ombopag therapy, use of Dimension Walker TBIL is not recommended. Chloride [Moles/Vol] 110 mmol/L 98-107 [facility] Eosinophils/100 WBC (Bld) 1.5 % 0-5 [facility] Glucose [Mass/Vol] 74 mg/dL 74-106 [facility] Hemoglobin (Bld) [Mass/Vol] 11.0 g/dL 12.0-15.0 [facility] Monocytes/100 WBC (Bld) 11.9 % 0-10 [facility] Neutrophils (Bld) [#/Vol] 3.8 10*3/uL 2.0-7.7 [facility] Neutrophils/100 WBC (Bld) 64.1 % 47-70 [facility] Potassium [Moles/Vol] 4.0 mmol/L 3.5-5.1 [facility] Protein [Mass/Vol] 6.4 g/dL 6.4-8.2 [facility] Sodium [Moles/Vol] 142 mmol/L 136-145 [facility] WBC (Bld) [#/Vol] 5.9 10*3/uL 4.4-11.0 [facility] Determination of erythrocyte mean corpuscular volume (MCV)Ordered By: merylpalermogarfield Reyna on 06-30-2023 MCV (RBC) [Entitic vol] 102.1 fL 81-99 [facility] Erythrocyte distribution wid th ratioOrdered By: [facility] Gopalalyssa on 06-30-2023 Erythrocyte distribution width (RBC) [Ratio] 15.0 % 11.6-14.6 [facility] Erythrocyte distribution wid th standard deviationOrdered By: [facility] on 06-30-2023 Erythrocyte distribution width (RBC) [Entitic vol] 55.3 fL 35.1-43.9 [facility] Hematocrit Auto (Bld) [Volum e fraction]Ordered By: [facility] Gopalalyssa on 06-30-2023 Hematocrit (Bld) [Volume fraction] 34.2 % 37-47 [facility] Immature granulocytes/100 WB C Auto (Bld)Ordered By: [facility] Immature granulocytes/100 WBC (Bld) 0.500 % 0.0-0.9 [facility] Comment on above: IG% - Immature Granu locytes (promyelocytes, myelocytes and metamyelocytes) > 1% indicates that a LEFT SHIFT is Present. Laboratory - Chemistry and C hemistry - challengeOrdered By: Reji Reyna on 06-30-2023 Albumin/Globulin [Mass ratio] 0.6 {ratio} 0.9-2.4 [facility] ALP [Catalytic activity/Vol] 59 U/L 45-117 [facility] ALT [Catalytic activity/Vol] 31 U/L 13-56 [facility] CO2 [Moles/Vol] 27.0 mmol/L 21.0-32.0 [facility] Globulin (S) [Mass/Vol] 4.0 g/dL 2.2-4.2 [facility] Urea nitrogen/Creatinine [Mass ratio] 23.6 mg/mg 10-20 [facility] Laboratory - Hematology and Cell countsOrdered By: Reji Reyna on 06-30-2023 MCH (RBC) [Entitic mass] 32.8 pg 27.0-32.0 [facility] MCHC (RBC) [Mass/Vol] 32.2 g/dL 32-36 [facility] Nucleated RBC/100 WBC (Bld) [Ratio] 0 % 0-5 [facility] Platelet mean volume (Bld) [Entitic vol] 9.7 fL 6.2-12.0 [facility] Platelets (Bld) [#/Vol] 131 10*3/uL 150-450 [facility] No Panel InformationOrdered By: Reji Reyna on 06-30-2023 Estimated GFR (MDRD) Amer 123 mL/min >60 [facility] Comment on above: GFR Calc Estimated GFR (MDRD) Non-Af Amer 102 mL/min >60 [facility] Comment on above: Non- GFR Calc RBC Auto (Bld) [#/Vol]Ordere d By: Reji Reyna on 06-30-2023 RBC (Bld) [#/Vol] 3.35 10*6/uL 4.2-5.4 [facility] Serum or plasma calcium yonatan urement (mass/volume)Ordered By: Reji Reyna on 06-30-2023 Calcium [Mass/Vol] 8.5 mg/dL 8.5-10.1 [facility] Serum or plasma creatinine m easurement (mass/volume)Ordered By: Reji Reyna on 06-30-2023 Creatinine [Mass/Vol] 0.59 mg/dL 0.55-1.02 [facility] Comment on above: The validity of the calculated GFR & GFRAA in patients over 70 years has not been determined. Clinical correlation is essential. Serum or plasma urea nitroge n measurement (mass/volume)Ordered By: Reji Reyna on 06-30-2023 Urea nitrogen [Mass/Vol] 14 mg/dL 7-18 [facility] Thin prep Papanicolaou smear with manual screeningOrdered By: arline Reyna on 06-30-2023 Thin prep Papanicolaou smear with manual screening 2.4 g/dL 3.2-5.0 [facility] Thin prep Papanicolaou smear with manual screening 27 U/L 15-37 [facility] Thin prep Papanicolaou smear with manual screening 5 5-15 [facility] Absolute lymphocyte countOrd ered By: Reji Reyna on 06-02-2023 Lymphocytes Auto (Unsp spec) [#/Vol] 1.12 10*3/uL 0.83-4.51 [facility] Automated lymphocyte count a s percentage of total leukocytesOrdered By: Reji Reyna on 06-02-2023 Lymphocytes/100 WBC Auto (Unsp spec) 18.1 % 19-41 [facility] Basophil percentageOrdered B y: Reji Reyna on 06-02-2023 Basophils/100 WBC (Bld) 0.5 % 0-1 [facility] Bilirubin [Mass/Vol] 0.60 mg/dL 0.20-1.00 [facility] Comment on above: For patients on eltr ombopag therapy, use of Dimension Walker TBIL is not recommended. Chloride [Moles/Vol] 110 mmol/L 98-107 [facility] Eosinophils/100 WBC (Bld) 1.5 % 0-5 [facility] Glucose [Mass/Vol] 76 mg/dL 74-106 [facility] Hemoglobin (Bld) [Mass/Vol] 11.3 g/dL 12.0-15.0 [facility] Monocytes/100 WBC (Bld) 9.5 % 0-10 [facility] Neutrophils (Bld) [#/Vol] 4.3 10*3/uL 2.0-7.7 [facility] Neutrophils/100 WBC (Bld) 69.9 % 47-70 [facility] Potassium [Moles/Vol] 4.1 mmol/L 3.5-5.1 [facility] Protein [Mass/Vol] 6.8 g/dL 6.4-8.2 [facility] Sodium [Moles/Vol] 140 mmol/L 136-145 [facility] WBC (Bld) [#/Vol] 6.2 10*3/uL 4.4-11.0 [facility] Determination of erythrocyte mean corpuscular volume (MCV)Ordered By: Reji Reyna on 06-02-2023 MCV (RBC) [Entitic vol] 101.2 fL 81-99 [facility] Erythrocyte distribution wid th ratioOrdered By: [facility] Herronalyssa on 06-02-2023 Erythrocyte distribution width (RBC) [Ratio] 14.1 % 11.6-14.6 [facility] Erythrocyte distribution wid th standard deviationOrdered By: [facility] Gopalalyssa on 06-02-2023 Erythrocyte distribution width (RBC) [Entitic vol] 52.1 fL 35.1-43.9 [facility] Hematocrit Auto (Bld) [Volum e fraction]Ordered By: [facility] Reyna on 06-02-2023 Hematocrit (Bld) [Volume fraction] 34.1 % 37-47 [facility] Immature granulocytes/100 WB C Auto (Bld)Ordered By: arline Reyna on 06-02-2023 Immature granulocytes/100 WBC (Bld) 0.500 % 0.0-0.9 [facility] Comment on above: IG% - Immature Granu locytes (promyelocytes, myelocytes and metamyelocytes) > 1% indicates that a LEFT SHIFT is Present. Laboratory - Chemistry and C hemistry - challengeOrdered By: Reji Reyna on 06-02-2023 Albumin/Globulin [Mass ratio] 0.5 {ratio} 0.9-2.4 [facility] ALP [Catalytic activity/Vol] 67 U/L 45-117 [facility] ALT [Catalytic activity/Vol] 25 U/L 13-56 [facility] CO2 [Moles/Vol] 26.0 mmol/L 21.0-32.0 [facility] Globulin (S) [Mass/Vol] 4.4 g/dL 2.2-4.2 [facility] Urea nitrogen/Creatinine [Mass ratio] 21.1 mg/mg 10-20 [facility] Laboratory - Hematology and Cell countsOrdered By: Reji Reyna on 06-02-2023 MCH (RBC) [Entitic mass] 33.5 pg 27.0-32.0 [facility] MCHC (RBC) [Mass/Vol] 33.1 g/dL 32-36 [facility] Nucleated RBC/100 WBC (Bld) [Ratio] 0 % 0-5 [facility] Platelet mean volume (Bld) [Entitic vol] 9.4 fL 6.2-12.0 [facility] Platelets (Bld) [#/Vol] 144 10*3/uL 150-450 [facility] No Panel InformationOrdered By: Reji Reyna on 06-02-2023 Estimated GFR (MDRD) Amer 118 mL/min >60 [facility] Comment on above: GFR Calc Estimated GFR (MDRD) Non-Af Amer 97 mL/min >60 [facility] Comment on above: Non- GFR Calc RBC Auto (Bld) [#/Vol]Ordere d By: Reji Reyna on 06-02-2023 RBC (Bld) [#/Vol] 3.37 10*6/uL 4.2-5.4 [facility] Serum or plasma calcium yonatan urement (mass/volume)Ordered By: Reji Reyna on 06-02-2023 Calcium [Mass/Vol] 9.1 mg/dL 8.5-10.1 [facility] Serum or plasma creatinine m easurement (mass/volume)Ordered By: Reji Reyna on 06-02-2023 Creatinine [Mass/Vol] 0.62 mg/dL 0.55-1.02 [facility] Comment on above: The validity of the calculated GFR & GFRAA in patients over 70 years has not been determined. Clinical correlation is essential. Serum or plasma urea nitroge n measurement (mass/volume)Ordered By: [facility] Herronrejialyssa on 06-02-2023 Urea nitrogen [Mass/Vol] 13 mg/dL 7-18 [facility] Thin prep Papanicolaou smear with manual screeningOrdered By: Angelitomerylailyn Gopalrejialyssa on 06-02-2023 Thin prep Papanicolaou smear with manual screening 2.4 g/dL 3.2-5.0 [facility] Thin prep Papanicolaou smear with manual screening 26 U/L 15-37 [facility] Thin prep Papanicolaou smear with manual screening 4 5-15 [facility] Absolute lymphocyte countOrd ered By: [facility]yl[facility] Herronrejialyssa on 05-05-2023 Lymphocytes Auto (Unsp spec) [#/Vol] 1.25 10*3/uL 0.83-4.51 [facility] Automated lymphocyte count a s percentage of total leukocytesOrdered By: Reji Reyna on 05-05-2023 Lymphocytes/100 WBC Auto (Unsp spec) 17.8 % 19-41 [facility] Basophil percentageOrdered B y: Reji Gopaljodi on 05-05-2023 Basophils/100 WBC (Bld) 0.6 % 0-1 [facility] Bilirubin [Mass/Vol] 0.80 mg/dL 0.20-1.00 [facility] Comment on above: For patients on eltr ombopag therapy, use of Dimension Walker TBIL is not recommended. Chloride [Moles/Vol] 112 mmol/L 98-107 [facility] Eosinophils/100 WBC (Bld) 1.6 % 0-5 [facility] Glucose [Mass/Vol] 76 mg/dL 74-106 [facility] Hemoglobin (Bld) [Mass/Vol] 11.6 g/dL 12.0-15.0 [facility] Monocytes/100 WBC (Bld) 11.1 % 0-10 [facility] Neutrophils (Bld) [#/Vol] 4.8 10*3/uL 2.0-7.7 [facility] Neutrophils/100 WBC (Bld) 68.5 % 47-70 [facility] Potassium [Moles/Vol] 4.0 mmol/L 3.5-5.1 [facility] Protein [Mass/Vol] 6.7 g/dL 6.4-8.2 [facility] Sodium [Moles/Vol] 142 mmol/L 136-145 [facility] WBC (Bld) [#/Vol] 7.0 10*3/uL 4.4-11.0 [facility] Determination of erythrocyte mean corpuscular volume (MCV)Ordered By: Reji Reyna on 05-05-2023 MCV (RBC) [Entitic vol] 102.3 fL 81-99 [facility] Erythrocyte distribution wid th ratioOrdered By: [facility] Gopalalyssa on 05-05-2023 Erythrocyte distribution width (RBC) [Ratio] 14.0 % 11.6-14.6 [facility] Erythrocyte distribution wid th standard deviationOrdered By: [facility] Erythrocyte distribution width (RBC) [Entitic vol] 51.9 fL 35.1-43.9 [facility] Hematocrit Auto (Bld) [Volum e fraction]Ordered By: [facility] Gopalalyssa on 05-05-2023 Hematocrit (Bld) [Volume fraction] 35.7 % 37-47 [facility] Immature granulocytes/100 WB C Auto (Bld)Ordered By: [facility] Gopalalyssa on 05-05-2023 Immature granulocytes/100 WBC (Bld) 0.400 % 0.0-0.9 [facility] Comment on above: IG% - Immature Granu locytes (promyelocytes, myelocytes and metamyelocytes) > 1% indicates that a LEFT SHIFT is Present. Laboratory - Chemistry and C hemistry - challengeOrdered By: [facility] Hreronalyssa on 05-05-2023 Albumin/Globulin [Mass ratio] 0.6 {ratio} 0.9-2.4 [facility] ALP [Catalytic activity/Vol] 56 U/L 45-117 [facility] ALT [Catalytic activity/Vol] 24 U/L 13-56 [facility] CO2 [Moles/Vol] 26.0 mmol/L 21.0-32.0 [facility] Globulin (S) [Mass/Vol] 4.3 g/dL 2.2-4.2 [facility] Urea nitrogen/Creatinine [Mass ratio] 16.0 mg/mg 10-20 [facility] Laboratory - Hematology and Cell countsOrdered By: Reji Reyna on 05-05-2023 MCH (RBC) [Entitic mass] 33.2 pg 27.0-32.0 [facility] MCHC (RBC) [Mass/Vol] 32.5 g/dL 32-36 [facility] Nucleated RBC/100 WBC (Bld) [Ratio] 0 % 0-5 [facility] Platelet mean volume (Bld) [Entitic vol] 9.4 fL 6.2-12.0 [facility] Platelets (Bld) [#/Vol] 144 10*3/uL 150-450 [facility] No Panel InformationOrdered By: Reji Reyna on 05-05-2023 Estimated GFR (MDRD) Amer 104 mL/min >60 [facility] Comment on above: GFR Calc Estimated GFR (MDRD) Non-Af Amer 86 mL/min >60 [facility] Comment on above: Non- GFR Calc RBC Auto (Bld) [#/Vol]Ordere d By: Reji Reyna on 05-05-2023 RBC (Bld) [#/Vol] 3.49 10*6/uL 4.2-5.4 [facility] Serum or plasma calcium yonatan urement (mass/volume)Ordered By: Reji Reyna on 05-05-2023 Calcium [Mass/Vol] 9.0 mg/dL 8.5-10.1 [facility] Serum or plasma creatinine m easurement (mass/volume)Ordered By: Reji Reyna on 05-05-2023 Creatinine [Mass/Vol] 0.69 mg/dL 0.55-1.02 [facility] Comment on above: The validity of the calculated GFR & GFRAA in patients over 70 years has not been determined. Clinical correlation is essential. Serum or plasma thyroid stim ulating hormone (TSH) measurement (units/volume)Ordered By: Reji Reyna on 05-05-2023 TSH Qn 1.84 uIU/mL 0.358-3.74 [facility] Serum or plasma urea nitroge n measurement (mass/volume)Ordered By: Reji Reyna on 05-05-2023 Urea nitrogen [Mass/Vol] 11 mg/dL 7-18 [facility] Thin prep Papanicolaou smear with manual screeningOrdered By: Reji Reyna on 05-05-2023 Thin prep Papanicolaou smear with manual screening 2.4 g/dL 3.2-5.0 [facility] Thin prep Papanicolaou smear with manual screening 16 U/L 15-37 [facility] Thin prep Papanicolaou smear with manual screening 4 5-15 [facility] Absolute lymphocyte countOrd ered By: Reji Reyna on 03-31-2023 Lymphocytes Auto (Unsp spec) [#/Vol] 1.66 10*3/uL 0.83-4.51 [facility] Basophil percentageOrdered B y: Reji Reyna on 03-31-2023 Basophils/100 WBC (Bld) 0.7 % 0-1 [facility] Bilirubin [Mass/Vol] 0.60 mg/dL 0.20-1.00 [facility] Comment on above: For patients on eltr ombopag therapy, use of Dimension Walker TBIL is not recommended. Chloride [Moles/Vol] 109 mmol/L 98-107 [facility] Eosinophils/100 WBC (Bld) 1.1 % 0-5 [facility] Glucose [Mass/Vol] 69 mg/dL 74-106 [facility] Neutrophils (Bld) [#/Vol] 4.8 10*3/uL 2.0-7.7 [facility] Neutrophils/100 WBC (Bld) 65.4 % 47-70 [facility] Potassium [Moles/Vol] 4.1 mmol/L 3.5-5.1 [facility] Protein [Mass/Vol] 7.0 g/dL 6.4-8.2 [facility] Sodium [Moles/Vol] 142 mmol/L 136-145 [facility] WBC (Bld) [#/Vol] 7.4 10*3/uL 4.4-11.0 [facility] Blood erythrocytes count (nu mber/volume)Ordered By: Reji Reyna on 03-31-2023 RBC (Bld) [#/Vol] 3.54 10*6/uL 4.2-5.4 [facility] Blood hemoglobin measurement (mass/volume)Ordered By: Reji Reyna on 03-31-2023 Hemoglobin (Bld) [Mass/Vol] 12.3 g/dL 12.0-15.0 [facility] Blood lymphocytes/100 leukoc ytesOrdered By: Reji Reyna on 03-31-2023 Lymphocytes/100 WBC (Bld) 22.5 % 19-41 [facility] Blood monocytes/100 leukocyt esOrdered By: arline Reyna on 03-31-2023 Monocytes/100 WBC (Bld) 9.8 % 0-10 [facility] Blood platelet mean volumeOr dered By: Reji Reyna on 03-31-2023 Platelet mean volume (Bld) [Entitic vol] 9.9 fL 6.2-12.0 [facility] Determination of erythrocyte mean corpuscular volume (MCV)Ordered By: Reji Reyna on 03-31-2023 MCV (RBC) [Entitic vol] 103.7 fL 81-99 [facility] Hematocrit Auto (Bld) [Volum e fraction]Ordered By: Reji Reyna on 03-31-2023 Hematocrit (Bld) [Volume fraction] 36.7 % 37-47 [facility] Laboratory - Chemistry and C hemistry - challengeOrdered By: Reji Reyna on 03-31-2023 ALP [Catalytic activity/Vol] 60 U/L 45-117 [facility] ALT [Catalytic activity/Vol] 26 U/L 13-56 [facility] CO2 [Moles/Vol] 27.0 mmol/L 21.0-32.0 [facility] Globulin (S) [Mass/Vol] 4.2 g/dL 2.2-4.2 [facility] Urea nitrogen/Creatinine [Mass ratio] 19.8 mg/mg 10-20 [facility] Laboratory - Hematology and Cell countsOrdered By: Reji Reyna on 03-31-2023 Erythrocyte distribution width (RBC) [Entitic vol] 51.9 fL 35.1-43.9 [facility] Erythrocyte distribution width (RBC) [Ratio] 13.6 % 11.6-14.6 [facility] Immature granulocytes/100 WBC (Bld) 0.500 % 0.0-0.9 [facility] Comment on above: IG% - Immature Granu locytes (promyelocytes, myelocytes and metamyelocytes) > 1% indicates that a LEFT SHIFT is Present. MCH (RBC) [Entitic mass] 34.7 pg 27.0-32.0 [facility] Nucleated RBC/100 WBC (Bld) [Ratio] 0 % 0-5 [facility] MCHC Auto (RBC) [Mass/Vol]Or dered By: Reji Reyna on 03-31-2023 MCHC (RBC) [Mass/Vol] 33.5 g/dL 32-36 [facility] No Panel InformationOrdered By: Reji Reyna on 03-31-2023 Estimated GFR (MDRD) Amer 120 mL/min >60 [facility] Comment on above: GFR Calc Estimated GFR (MDRD) Non-Af Amer 99 mL/min >60 [facility] Comment on above: Non- GFR Calc Platelets bldOrdered By: Fredy Reyna on 03-31-2023 Platelets (Bld) [#/Vol] 139 10*3/uL 150-450 [facility] Serum or plasma albumin yonatan urement (mass/volume)Ordered By: Reji Reyna on 03-31-2023 Albumin [Mass/Vol] 2.8 g/dL 3.2-5.0 [facility] Serum or plasma albumin/glob ulin mass ratioOrdered By: Reji Reyna on 03-31-2023 Albumin/Globulin [Mass ratio] 0.7 {ratio} 0.9-2.4 [facility] Serum or plasma calcium yonatan urement (mass/volume)Ordered By: Reji Reyna on 03-31-2023 Calcium [Mass/Vol] 9.1 mg/dL 8.5-10.1 [facility] Serum or plasma creatinine m easurement (mass/volume)Ordered By: Reji Reyna on 03-31-2023 Creatinine [Mass/Vol] 0.61 mg/dL 0.55-1.02 [facility] Comment on above: The validity of the calculated GFR & GFRAA in patients over 70 years has not been determined. Clinical correlation is essential. Serum or plasma urea nitroge n measurement (mass/volume)Ordered By: Reji Reyna on 03-31-2023 Urea nitrogen [Mass/Vol] 12 mg/dL - [facility] Thin prep Papanicolaou smear with manual screeningOrdered By: merylmichaelgarfield Reyna on 03-31-2023 Thin prep Papanicolaou smear with manual screening 22 U/L [facility] Thin prep Papanicolaou smear with manual screening 6 - [facility] Absolute lymphocyte countOrd ered By: Jamisongarfield Herronrejialyssa on 03-03-2023 Lymphocytes Auto (Unsp spec) [#/Vol] 1.95 10*3/uL 0.83-4.51 [facility] Basophil percentageOrdered B y: Reji Gopalrejialyssa on 03-03-2023 Basophils/100 WBC (Bld) 0.5 % 0-1 [facility] Bilirubin [Mass/Vol] 0.80 mg/dL 0.20-1.00 [facility] Comment on above: For patients on eltr ombopag therapy, use of Dimension Walker TBIL is not recommended. Chloride [Moles/Vol] 109 mmol/L 98-107 [facility] Eosinophils/100 WBC (Bld) 1.6 % 0-5 [facility] Glucose [Mass/Vol] 67 mg/dL 74-106 [facility] Neutrophils (Bld) [#/Vol] 4.4 10*3/uL 2.0-7.7 [facility] Neutrophils/100 WBC (Bld) 60.1 % 47-70 [facility] Potassium [Moles/Vol] 4.2 mmol/L 3.5-5.1 [facility] Protein [Mass/Vol] 7.3 g/dL 6.4-8.2 [facility] Sodium [Moles/Vol] 142 mmol/L 136-145 [facility] WBC (Bld) [#/Vol] 7.4 10*3/uL 4.4-11.0 [facility] Blood erythrocytes count (nu mber/volume)Ordered By: Reji Reyna on 03-03-2023 RBC (Bld) [#/Vol] 3.61 10*6/uL 4.2-5.4 [facility] Blood hemoglobin measurement (mass/volume)Ordered By: Reji Reyna on 03-03-2023 Hemoglobin (Bld) [Mass/Vol] 12.6 g/dL 12.0-15.0 [facility] Blood lymphocytes/100 leukoc ytesOrdered By: [facility] on 03-03-2023 Lymphocytes/100 WBC (Bld) 26.4 % 19-41 [facility] Blood monocytes/100 leukocyt esOrdered By: [facility] Reyn[facility] on 03-03-2023 Monocytes/100 WBC (Bld) 10.7 % 0-10 [facility] Blood platelet mean volumeOr dered By: arline Reyna on 03-03-2023 Platelet mean volume (Bld) [Entitic vol] 9.8 fL 6.2-12.0 [facility] Determination of erythrocyte mean corpuscular volume (MCV)Ordered By: Reji Reyna on 03-03-2023 MCV (RBC) [Entitic vol] 104.7 fL 81-99 [facility] Hematocrit Auto (Bld) [Volum e fraction]Ordered By: arline Reyna on 03-03-2023 Hematocrit (Bld) [Volume fraction] 37.8 % 37-47 [facility] Laboratory - Chemistry and C hemistry - challengeOrdered By: Reji Reyna on 03-03-2023 ALP [Catalytic activity/Vol] 71 U/L 45-117 [facility] ALT [Catalytic activity/Vol] 38 U/L 13-56 [facility] CO2 [Moles/Vol] 28.0 mmol/L 21.0-32.0 [facility] Globulin (S) [Mass/Vol] 4.3 g/dL 2.2-4.2 [facility] Urea nitrogen/Creatinine [Mass ratio] 20.3 mg/mg 10-20 [facility] Laboratory - Hematology and Cell countsOrdered By: Reji Reyna on 03-03-2023 Erythrocyte distribution width (RBC) [Entitic vol] 53.8 fL 35.1-43.9 [facility] Erythrocyte distribution width (RBC) [Ratio] 14.0 % 11.6-14.6 [facility] Immature granulocytes/100 WBC (Bld) 0.700 % 0.0-0.9 [facility] Comment on above: IG% - Immature Granu locytes (promyelocytes, myelocytes and metamyelocytes) > 1% indicates that a LEFT SHIFT is Present. MCH (RBC) [Entitic mass] 34.9 pg 27.0-32.0 [facility] Nucleated RBC/100 WBC (Bld) [Ratio] 0 % 0-5 [facility] MCHC Auto (RBC) [Mass/Vol]Or dered By: Reji Reyna on 03-03-2023 MCHC (RBC) [Mass/Vol] 33.3 g/dL 32-36 [facility] No Panel InformationOrdered By: Reji Reyna on 03-03-2023 Estimated GFR (MDRD) Amer 96 mL/min >60 [facility] Comment on above: GFR Calc Estimated GFR (MDRD) Non-Af Amer 79 mL/min >60 [facility] Comment on above: Non- GFR Calc Platelets bldOrdered By: Fredy Reyna on 03-03-2023 Platelets (Bld) [#/Vol] 141 10*3/uL 150-450 [facility] Serum or plasma albumin yonatan urement (mass/volume)Ordered By: Reji Reyna on 03-03-2023 Albumin [Mass/Vol] 3.0 g/dL 3.2-5.0 [facility] Serum or plasma albumin/glob ulin mass ratioOrdered By: Reji Reyna on 03-03-2023 Albumin/Globulin [Mass ratio] 0.7 {ratio} 0.9-2.4 [facility] Serum or plasma calcium yonatan urement (mass/volume)Ordered By: Reji Reyna on 03-03-2023 Calcium [Mass/Vol] 9.0 mg/dL 8.5-10.1 [facility] Serum or plasma creatinine m easurement (mass/volume)Ordered By: Reji Reyna on 03-03-2023 Creatinine [Mass/Vol] 0.74 mg/dL 0.55-1.02 [facility] Comment on above: The validity of the calculated GFR & GFRAA in patients over 70 years has not been determined. Clinical correlation is essential. Serum or plasma urea nitroge n measurement (mass/volume)Ordered By: Reji Reyna on 03-03-2023 Urea nitrogen [Mass/Vol] 15 mg/dL 7-18 [facility] Thin prep Papanicolaou smear with manual screeningOrdered By: Reji Reyna on 03-03-2023 Thin prep Papanicolaou smear with manual screening 38 U/L 15-37 [facility] Thin prep Papanicolaou smear with manual screening 5 5-15 [facility] Absolute lymphocyte countOrd ered By: Reji Reyna on 02-03-2023 Lymphocytes Auto (Unsp spec) [#/Vol] 1.74 10*3/uL 0.83-4.51 [facility] Basophil percentageOrdered B y: Reji Reyna on 02-03-2023 Basophils/100 WBC (Bld) 0.6 % 0-1 [facility] Bilirubin [Mass/Vol] 0.70 mg/dL 0.20-1.00 [facility] Comment on above: For patients on eltr ombopag therapy, use of Dimension Walker TBIL is not recommended. Chloride [Moles/Vol] 108 mmol/L 98-107 [facility] Eosinophils/100 WBC (Bld) 1.4 % 0-5 [facility] Glucose [Mass/Vol] 79 mg/dL 74-106 [facility] Neutrophils (Bld) [#/Vol] 4.5 10*3/uL 2.0-7.7 [facility] Neutrophils/100 WBC (Bld) 62.8 % 47-70 [facility] Potassium [Moles/Vol] 3.8 mmol/L 3.5-5.1 [facility] Protein [Mass/Vol] 7.3 g/dL 6.4-8.2 [facility] Sodium [Moles/Vol] 141 mmol/L 136-145 [facility] WBC (Bld) [#/Vol] 7.1 10*3/uL 4.4-11.0 [facility] Blood erythrocytes count (nu mber/volume)Ordered By: Reji Reyna on 02-03-2023 RBC (Bld) [#/Vol] 3.58 10*6/uL 4.2-5.4 [facility] Blood hemoglobin measurement (mass/volume)Ordered By: Reji Reyna on 02-03-2023 Hemoglobin (Bld) [Mass/Vol] 12.3 g/dL 12.0-15.0 [facility] Blood lymphocytes/100 leukoc ytesOrdered By: Reji Reyna on 02-03-2023 Lymphocytes/100 WBC (Bld) 24.5 % 19-41 [facility] Blood monocytes/100 leukocyt esOrdered By: Reji Reyna on 02-03-2023 Monocytes/100 WBC (Bld) 10.4 % 0-10 [facility] Blood platelet mean volumeOr dered By: Reji Reyna on 02-03-2023 Platelet mean volume (Bld) [Entitic vol] 9.4 fL 6.2-12.0 [facility] Determination of erythrocyte mean corpuscular volume (MCV)Ordered By: Reji Reyna on 02-03-2023 MCV (RBC) [Entitic vol] 103.9 fL 81-99 [facility] Hematocrit Auto (Bld) [Volum e fraction]Ordered By: Reji Reyna on 02-03-2023 Hematocrit (Bld) [Volume fraction] 37.2 % 37-47 [facility] Laboratory - Chemistry and C hemistry - challengeOrdered By: Reji Reyna on 02-03-2023 ALP [Catalytic activity/Vol] 88 U/L 45-117 [facility] ALT [Catalytic activity/Vol] 36 U/L 13-56 [facility] CO2 [Moles/Vol] 27.0 mmol/L 21.0-32.0 [facility] Globulin (S) [Mass/Vol] 4.5 g/dL 2.2-4.2 [facility] Urea nitrogen/Creatinine [Mass ratio] 22.9 mg/mg 10-20 [facility] Laboratory - Hematology and Cell countsOrdered By: Reji Reyna on 02-03-2023 Erythrocyte distribution width (RBC) [Entitic vol] 55.1 fL 35.1-43.9 [facility] Erythrocyte distribution width (RBC) [Ratio] 14.5 % 11.6-14.6 [facility] Immature granulocytes/100 WBC (Bld) 0.300 % 0.0-0.9 [facility] Comment on above: IG% - Immature Granu locytes (promyelocytes, myelocytes and metamyelocytes) > 1% indicates that a LEFT SHIFT is Present. MCH (RBC) [Entitic mass] 34.4 pg 27.0-32.0 [facility] Nucleated RBC/100 WBC (Bld) [Ratio] 0 % 0-5 [facility] MCHC Auto (RBC) [Mass/Vol]Or dered By: Reji Reyna on 02-03-2023 MCHC (RBC) [Mass/Vol] 33.1 g/dL 32-36 [facility] No Panel InformationOrdered By: Reji Reyna on 02-03-2023 Estimated GFR (MDRD) Amer 110 mL/min >60 [facility] Comment on above: GFR Calc Estimated GFR (MDRD) Non-Af Amer 91 mL/min >60 [facility] Comment on above: Non- GFR Calc Platelets bldOrdered By: Fredy Reyna on 02-03-2023 Platelets (Bld) [#/Vol] 134 10*3/uL 150-450 [facility] Serum or plasma albumin yonatan urement (mass/volume)Ordered By: Reji Reyna on 02-03-2023 Albumin [Mass/Vol] 2.8 g/dL 3.2-5.0 [facility] Serum or plasma albumin/glob ulin mass ratioOrdered By: Reji Reyna on 02-03-2023 Albumin/Globulin [Mass ratio] 0.6 {ratio} 0.9-2.4 [facility] Serum or plasma calcium yonatan urement (mass/volume)Ordered By: Reji Reyna on 02-03-2023 Calcium [Mass/Vol] 9.2 mg/dL 8.5-10.1 [facility] Serum or plasma creatinine m easurement (mass/volume)Ordered By: Reji Reyna on 02-03-2023 Creatinine [Mass/Vol] 0.66 mg/dL 0.55-1.02 [facility] Comment on above: The validity of the calculated GFR & GFRAA in patients over 70 years has not been determined. Clinical correlation is essential. Serum or plasma urea nitroge n measurement (mass/volume)Ordered By: merylpalermogarfield Reyna on 02-03-2023 Urea nitrogen [Mass/Vol] 15 mg/dL 7-18 [facility] Thin prep Papanicolaou smear with manual screeningOrdered By: [facility] Reyn[facility] on 02-03-2023 Thin prep Papanicolaou smear with manual screening 29 U/L 15-37 [facility] Thin prep Papanicolaou smear with manual screening 6 5-15 [facility] Absolute lymphocyte countOrd ered By: merylmichaelgarfield Herronrejialyssa on 12-30-2022 Lymphocytes Auto (Unsp spec) [#/Vol] 1.24 10*3/uL 0.83-4.51 [facility] Basophil percentageOrdered B y: Reji Gopalrejialyssa on 12-30-2022 Basophils/100 WBC (Bld) 0.8 % 0-1 [facility] Bilirubin [Mass/Vol] 0.60 mg/dL 0.20-1.00 [facility] Comment on above: For patients on eltr ombopag therapy, use of Dimension Walker TBIL is not recommended. Chloride [Moles/Vol] 111 mmol/L 98-107 [facility] Eosinophils/100 WBC (Bld) 2.6 % 0-5 [facility] Glucose [Mass/Vol] 81 mg/dL 74-106 [facility] Neutrophils (Bld) [#/Vol] 2.9 10*3/uL 2.0-7.7 [facility] Neutrophils/100 WBC (Bld) 57.5 % 47-70 [facility] Potassium [Moles/Vol] 4.1 mmol/L 3.5-5.1 [facility] Protein [Mass/Vol] 6.8 g/dL 6.4-8.2 [facility] Sodium [Moles/Vol] 141 mmol/L 136-145 [facility] WBC (Bld) [#/Vol] 5.0 10*3/uL 4.4-11.0 [facility] Blood erythrocytes count (nu mber/volume)Ordered By: Reji Reyna on 12-30-2022 RBC (Bld) [#/Vol] 3.26 10*6/uL 4.2-5.4 [facility] Blood hemoglobin measurement (mass/volume)Ordered By: Reji Reyna on 12-30-2022 Hemoglobin (Bld) [Mass/Vol] 11.8 g/dL 12.0-15.0 [facility] Blood lymphocytes/100 leukoc ytesOrdered By: Reji Reyna on 12-30-2022 Lymphocytes/100 WBC (Bld) 25.0 % 19-41 [facility] Blood monocytes/100 leukocyt esOrdered By: Reji Reyna on 12-30-2022 Monocytes/100 WBC (Bld) 13.9 % 0-10 [facility] Blood platelet mean volumeOr dered By: Reji Reyna on 12-30-2022 Platelet mean volume (Bld) [Entitic vol] 10.1 fL 6.2-12.0 [facility] Determination of erythrocyte mean corpuscular volume (MCV)Ordered By: Reji Reyna on 12-30-2022 MCV (RBC) [Entitic vol] 104.6 fL 81-99 [facility] Hematocrit Auto (Bld) [Volum e fraction]Ordered By: Reji Reyna on 12-30-2022 Hematocrit (Bld) [Volume fraction] 34.1 % 37-47 [facility] Laboratory - Chemistry and C hemistry - challengeOrdered By: Reji Reyna on 12-30-2022 ALP [Catalytic activity/Vol] 89 U/L 45-117 [facility] ALT [Catalytic activity/Vol] 25 U/L 13-56 [facility] CO2 [Moles/Vol] 25.0 mmol/L 21.0-32.0 [facility] Globulin (S) [Mass/Vol] 4.0 g/dL 2.2-4.2 [facility] Urea nitrogen/Creatinine [Mass ratio] 21.3 mg/mg 10-20 [facility] Laboratory - Hematology and Cell countsOrdered By: Reji Reyna on 12-30-2022 Erythrocyte distribution width (RBC) [Entitic vol] 53.4 fL 35.1-43.9 [facility] Erythrocyte distribution width (RBC) [Ratio] 14.1 % 11.6-14.6 [facility] Immature granulocytes/100 WBC (Bld) 0.200 % 0.0-0.9 [facility] Comment on above: IG% - Immature Granu locytes (promyelocytes, myelocytes and metamyelocytes) > 1% indicates that a LEFT SHIFT is Present. MCH (RBC) [Entitic mass] 36.2 pg 27.0-32.0 [facility] Nucleated RBC/100 WBC (Bld) [Ratio] 0 % 0-5 [facility] MCHC Auto (RBC) [Mass/Vol]Or dered By: Reji Reyna on 12-30-2022 MCHC (RBC) [Mass/Vol] 34.6 g/dL 32-36 [facility] No Panel InformationOrdered By: Reji Reyna on 12-30-2022 Estimated GFR (MDRD) Amer 120 mL/min >60 [facility] Comment on above: GFR Calc Estimated GFR (MDRD) Non-Af Amer 99 mL/min >60 [facility] Comment on above: Non- GFR Calc Platelets bldOrdered By: Fredy Reyna on 12-30-2022 Platelets (Bld) [#/Vol] 111 10*3/uL 150-450 [facility] Serum or plasma albumin yonatan urement (mass/volume)Ordered By: Reji Reyna on 12-30-2022 Albumin [Mass/Vol] 2.8 g/dL 3.2-5.0 [facility] Serum or plasma albumin/glob ulin mass ratioOrdered By: Reji Reyna on 12-30-2022 Albumin/Globulin [Mass ratio] 0.7 {ratio} 0.9-2.4 [facility] Serum or plasma calcium yonatan urement (mass/volume)Ordered By: Angelitomerylmichaelgarfield Herronrejialyssa on 12-30-2022 Calcium [Mass/Vol] 9.1 mg/dL 8.5-10.1 [facility] Serum or plasma creatinine m easurement (mass/volume)Ordered By: Jasmichaelgarfield Herronrejialyssa on 12-30-2022 Creatinine [Mass/Vol] 0.61 mg/dL 0.55-1.02 [facility] Comment on above: The validity of the calculated GFR & GFRAA in patients over 70 years has not been determined. Clinical correlation is essential. Serum or plasma urea nitroge n measurement (mass/volume)Ordered By: Angelitomerylmichaelgarfield Herronrejialyssa on 12-30-2022 Urea nitrogen [Mass/Vol] 13 mg/dL 7-18 [facility] Thin prep Papanicolaou smear with manual screeningOrdered By: Angelitomerylailyn Gopalrejialyssa on 12-30-2022 Thin prep Papanicolaou smear with manual screening 25 U/L 15-37 [facility] Thin prep Papanicolaou smear with manual screening 5 5-15 [facility] Absolute lymphocyte countOrd ered By: Reji Reyna on 12-02-2022 Lymphocytes Auto (Unsp spec) [#/Vol] 1.55 10*3/uL 0.83-4.51 [facility] Basophil percentageOrdered B y: Reji Reyna on 12-02-2022 Basophils/100 WBC (Bld) 0.4 % 0-1 [facility] Bilirubin [Mass/Vol] 0.60 mg/dL 0.20-1.00 [facility] Comment on above: For patients on eltr ombopag therapy, use of Dimension Walker TBIL is not recommended. Chloride [Moles/Vol] 109 mmol/L 98-107 [facility] Eosinophils/100 WBC (Bld) 2.3 % 0-5 [facility] Glucose [Mass/Vol] 82 mg/dL 74-106 [facility] Neutrophils (Bld) [#/Vol] 3.0 10*3/uL 2.0-7.7 [facility] Neutrophils/100 WBC (Bld) 56.8 % 47-70 [facility] Potassium [Moles/Vol] 4.5 mmol/L 3.5-5.1 [facility] Protein [Mass/Vol] 7.0 g/dL 6.4-8.2 [facility] Sodium [Moles/Vol] 140 mmol/L 136-145 [facility] WBC (Bld) [#/Vol] 5.3 10*3/uL 4.4-11.0 [facility] Blood erythrocytes count (nu mber/volume)Ordered By: Reji Reyna on 12-02-2022 RBC (Bld) [#/Vol] 3.54 10*6/uL 4.2-5.4 [facility] Blood hemoglobin measurement (mass/volume)Ordered By: Reji Reyna on 12-02-2022 Hemoglobin (Bld) [Mass/Vol] 12.2 g/dL 12.0-15.0 [facility] Blood lymphocytes/100 leukoc ytesOrdered By: Reji Reyna on 12-02-2022 Lymphocytes/100 WBC (Bld) 29.3 % 19-41 [facility] Blood monocytes/100 leukocyt esOrdered By: Reji Reyna on 12-02-2022 Monocytes/100 WBC (Bld) 10.8 % 0-10 [facility] Blood platelet mean volumeOr dered By: Reji Reyna on 12-02-2022 Platelet mean volume (Bld) [Entitic vol] 10.1 fL 6.2-12.0 [facility] Determination of erythrocyte mean corpuscular volume (MCV)Ordered By: Reji Reyna on 12-02-2022 MCV (RBC) [Entitic vol] 104.8 fL 81-99 [facility] Hematocrit Auto (Bld) [Volum e fraction]Ordered By: Reji Reyna on 12-02-2022 Hematocrit (Bld) [Volume fraction] 37.1 % 37-47 [facility] Laboratory - Chemistry and C hemistry - challengeOrdered By: Reji Reyna on 12-02-2022 ALP [Catalytic activity/Vol] 90 U/L 45-117 [facility] ALT [Catalytic activity/Vol] 30 U/L 13-56 [facility] CO2 [Moles/Vol] 26.0 mmol/L 21.0-32.0 [facility] Globulin (S) [Mass/Vol] 4.0 g/dL 2.2-4.2 [facility] Urea nitrogen/Creatinine [Mass ratio] 25.4 mg/mg 10-20 [facility] Laboratory - Hematology and Cell countsOrdered By: Reji Reyna on 12-02-2022 Erythrocyte distribution width (RBC) [Entitic vol] 51.2 fL 35.1-43.9 [facility] Erythrocyte distribution width (RBC) [Ratio] 13.4 % 11.6-14.6 [facility] Immature granulocytes/100 WBC (Bld) 0.400 % 0.0-0.9 [facility] Comment on above: IG% - Immature Granu locytes (promyelocytes, myelocytes and metamyelocytes) > 1% indicates that a LEFT SHIFT is Present. MCH (RBC) [Entitic mass] 34.5 pg 27.0-32.0 [facility] Nucleated RBC/100 WBC (Bld) [Ratio] 0 % 0-5 [facility] MCHC Auto (RBC) [Mass/Vol]Or dered By: Reji Reyna on 12-02-2022 MCHC (RBC) [Mass/Vol] 32.9 g/dL 32-36 [facility] No Panel InformationOrdered By: Reji Reyna on 12-02-2022 Estimated GFR (MDRD) Amer 115 mL/min >60 [facility] Comment on above: GFR Calc Estimated GFR (MDRD) Non-Af Amer 95 mL/min >60 [facility] Comment on above: Non- GFR Calc Platelets bldOrdered By: Fredy Reyna on 12-02-2022 Platelets (Bld) [#/Vol] 117 10*3/uL 150-450 [facility] Serum or plasma albumin yonatan urement (mass/volume)Ordered By: Reji Reyna on 12-02-2022 Albumin [Mass/Vol] 3.0 g/dL 3.2-5.0 [facility] Serum or plasma albumin/glob ulin mass ratioOrdered By: Reji Reyna on 12-02-2022 Albumin/Globulin [Mass ratio] 0.8 {ratio} 0.9-2.4 [facility] Serum or plasma calcium yonatan urement (mass/volume)Ordered By: Reji Reyna on 12-02-2022 Calcium [Mass/Vol] 8.9 mg/dL 8.5-10.1 [facility] Serum or plasma creatinine m easurement (mass/volume)Ordered By: Reji Reyna on 12-02-2022 Creatinine [Mass/Vol] 0.63 mg/dL 0.55-1.02 [facility] Comment on above: The validity of the calculated GFR & GFRAA in patients over 70 years has not been determined. Clinical correlation is essential. Serum or plasma urea nitroge n measurement (mass/volume)Ordered By: Reji Reyna on 12-02-2022 Urea nitrogen [Mass/Vol] 16 mg/dL -18 [facility] Thin prep Papanicolaou smear with manual screeningOrdered By: Reji Reyna on 12-02-2022 Thin prep Papanicolaou smear with manual screening 34 U/L 15-37 [facility] Thin prep Papanicolaou smear with manual screening 5 5-15 [facility] XR WRIST GENERAL 3V PA/LAT/O BL RIGHTon 11-25-2022 [facility] Absolute lymphocyte countOrd ered By: Reji Reyna on 11-04-2022 Lymphocytes Auto (Unsp spec) [#/Vol] 1.45 10*3/uL 0.83-4.51 [facility] Basophil percentageOrdered B y: Reji Reyna on 11-04-2022 Basophils/100 WBC (Bld) 0.7 % 0-1 [facility] Bilirubin [Mass/Vol] 0.60 mg/dL 0.20-1.00 [facility] Comment on above: For patients on eltr ombopag therapy, use of Dimension Walker TBIL is not recommended. Chloride [Moles/Vol] 111 mmol/L 98-107 [facility] Eosinophils/100 WBC (Bld) 2.4 % 0-5 [facility] Glucose [Mass/Vol] 84 mg/dL 74-106 [facility] Neutrophils (Bld) [#/Vol] 2.4 10*3/uL 2.0-7.7 [facility] Neutrophils/100 WBC (Bld) 52.9 % 47-70 [facility] Potassium [Moles/Vol] 4.0 mmol/L 3.5-5.1 [facility] Protein [Mass/Vol] 7.2 g/dL 6.4-8.2 [facility] Sodium [Moles/Vol] 141 mmol/L 136-145 [facility] WBC (Bld) [#/Vol] 4.6 10*3/uL 4.4-11.0 [facility] Blood erythrocytes count (nu mber/volume)Ordered By: Reji Reyna on 11-04-2022 RBC (Bld) [#/Vol] 3.31 10*6/uL 4.2-5.4 [facility] Blood hemoglobin measurement (mass/volume)Ordered By: Reji Reyna on 11-04-2022 Hemoglobin (Bld) [Mass/Vol] 11.5 g/dL 12.0-15.0 [facility] Blood lymphocytes/100 leukoc ytesOrdered By: Reji Reyna on 11-04-2022 Lymphocytes/100 WBC (Bld) 31.9 % 19-41 [facility] Blood monocytes/100 leukocyt esOrdered By: Reji Reyna on 11-04-2022 Monocytes/100 WBC (Bld) 11.9 % 0-10 [facility] Blood platelet mean volumeOr dered By: Reji Reyna on 11-04-2022 Platelet mean volume (Bld) [Entitic vol] 10.0 fL 6.2-12.0 [facility] Determination of erythrocyte mean corpuscular volume (MCV)Ordered By: Reji Reyna on 11-04-2022 MCV (RBC) [Entitic vol] 107.6 fL 81-99 [facility] Hematocrit Auto (Bld) [Volum e fraction]Ordered By: Reji Reyna on 11-04-2022 Hematocrit (Bld) [Volume fraction] 35.6 % 37-47 [facility] Laboratory - Chemistry and C hemistry - challengeOrdered By: Reji Reyna on 11-04-2022 ALP [Catalytic activity/Vol] 88 U/L 45-117 [facility] ALT [Catalytic activity/Vol] 22 U/L 13-56 [facility] CO2 [Moles/Vol] 26.0 mmol/L 21.0-32.0 [facility] Globulin (S) [Mass/Vol] 4.3 g/dL 2.2-4.2 [facility] Urea nitrogen/Creatinine [Mass ratio] 21.2 mg/mg 10-20 [facility] Laboratory - Hematology and Cell countsOrdered By: Reji Reyna on 11-04-2022 Erythrocyte distribution width (RBC) [Entitic vol] 52.2 fL 35.1-43.9 [facility] Erythrocyte distribution width (RBC) [Ratio] 13.2 % 11.6-14.6 [facility] Immature granulocytes/100 WBC (Bld) 0.200 % 0.0-0.9 [facility] Comment on above: IG% - Immature Granu locytes (promyelocytes, myelocytes and metamyelocytes) > 1% indicates that a LEFT SHIFT is Present. MCH (RBC) [Entitic mass] 34.7 pg 27.0-32.0 [facility] Nucleated RBC/100 WBC (Bld) [Ratio] 0 % 0-5 [facility] MCHC Auto (RBC) [Mass/Vol]Or dered By: Reji Reyna on 11-04-2022 MCHC (RBC) [Mass/Vol] 32.3 g/dL 32-36 [facility] No Panel InformationOrdered By: Reji Reyna on 11-04-2022 Estimated GFR (MDRD) Amer 119 mL/min >60 [facility] Comment on above: GFR Calc Estimated GFR (MDRD) Non-Af Amer 98 mL/min >60 [facility] Comment on above: Non- GFR Calc Thyroid Stimulating Hormone (TSH) 0.93 uIU/mL 0.358-3.74 [facility] Platelets bldOrdered By: Fredy Reyna on 11-04-2022 Platelets (Bld) [#/Vol] 114 10*3/uL 150-450 [facility] Serum or plasma albumin yonatan urement (mass/volume)Ordered By: Reji Gopalrejialyssa on 11-04-2022 Albumin [Mass/Vol] 2.9 g/dL 3.2-5.0 [facility] Serum or plasma albumin/glob ulin mass ratioOrdered By: Angelitomerylmichaelgarfield Herronrejialyssa on 11-04-2022 Albumin/Globulin [Mass ratio] 0.7 {ratio} 0.9-2.4 [facility] Serum or plasma calcium yonatan urement (mass/volume)Ordered By: Jamisongarfield Herronrejialyssa on 11-04-2022 Calcium [Mass/Vol] 9.4 mg/dL 8.5-10.1 [facility] Serum or plasma creatinine m easurement (mass/volume)Ordered By: Angelitomerylmichaelgarfield Herronrejialyssa on 11-04-2022 Creatinine [Mass/Vol] 0.61 mg/dL 0.55-1.02 [facility] Comment on above: The validity of the calculated GFR & GFRAA in patients over 70 years has not been determined. Clinical correlation is essential. Serum or plasma urea nitroge n measurement (mass/volume)Ordered By: Jamisongarfield Herronrejialyssa on 11-04-2022 Urea nitrogen [Mass/Vol] 13 mg/dL 7-18 [facility] Thin prep Papanicolaou smear with manual screeningOrdered By: Angelitomerylailyn Gopalrejialyssa on 11-04-2022 Thin prep Papanicolaou smear with manual screening 29 U/L 15-37 [facility] Thin prep Papanicolaou smear with manual screening 4 5-15 [facility] Absolute lymphocyte countOrd ered By: Jamisongarfield Herronrejialyssa on 09-30-2022 Lymphocytes Auto (Unsp spec) [#/Vol] 1.40 10*3/uL 0.83-4.51 [facility] Basophil percentageOrdered B y: Jamisongarfield Herronrejialyssa on 09-30-2022 Basophils/100 WBC (Bld) 0.5 % 0-1 [facility] Bilirubin [Mass/Vol] 0.80 mg/dL 0.20-1.00 [facility] Comment on above: For patients on eltr ombopag therapy, use of Dimension Walker TBIL is not recommended. Chloride [Moles/Vol] 113 mmol/L 98-107 [facility] Eosinophils/100 WBC (Bld) 2.2 % 0-5 [facility] Glucose [Mass/Vol] 80 mg/dL 74-106 [facility] Neutrophils (Bld) [#/Vol] 2.2 10*3/uL 2.0-7.7 [facility] Neutrophils/100 WBC (Bld) 52.0 % 47-70 [facility] Potassium [Moles/Vol] 3.8 mmol/L 3.5-5.1 [facility] Protein [Mass/Vol] 6.6 g/dL 6.4-8.2 [facility] Sodium [Moles/Vol] 142 mmol/L 136-145 [facility] WBC (Bld) [#/Vol] 4.1 10*3/uL 4.4-11.0 [facility] Blood erythrocytes count (nu mber/volume)Ordered By: Reji Reyna on 09-30-2022 RBC (Bld) [#/Vol] 2.92 10*6/uL 4.2-5.4 [facility] Blood hemoglobin measurement (mass/volume)Ordered By: Reji Reyna on 09-30-2022 Hemoglobin (Bld) [Mass/Vol] 10.7 g/dL 12.0-15.0 [facility] Blood lymphocytes/100 leukoc ytesOrdered By: Reji Reyna on 09-30-2022 Lymphocytes/100 WBC (Bld) 33.9 % 19-41 [facility] Blood monocytes/100 leukocyt esOrdered By: Reji Reyna on 09-30-2022 Monocytes/100 WBC (Bld) 11.4 % 0-10 [facility] Blood platelet mean volumeOr dered By: Reji Reyna on 09-30-2022 Platelet mean volume (Bld) [Entitic vol] 9.8 fL 6.2-12.0 [facility] Determination of erythrocyte mean corpuscular volume (MCV)Ordered By: Reji Reyna on 09-30-2022 MCV (RBC) [Entitic vol] 108.2 fL 81-99 [facility] Hematocrit Auto (Bld) [Volum e fraction]Ordered By: Reji Reyna on 09-30-2022 Hematocrit (Bld) [Volume fraction] 31.6 % 37-47 [facility] Laboratory - Chemistry and C hemistry - challengeOrdered By: Reji Reyna on 09-30-2022 ALP [Catalytic activity/Vol] 77 U/L 45-117 [facility] ALT [Catalytic activity/Vol] 20 U/L 13-56 [facility] CO2 [Moles/Vol] 24.0 mmol/L 21.0-32.0 [facility] Globulin (S) [Mass/Vol] 3.9 g/dL 2.2-4.2 [facility] Urea nitrogen/Creatinine [Mass ratio] 20.1 mg/mg 10-20 [facility] Laboratory - Hematology and Cell countsOrdered By: merylpalermogarfield Reyna on 09-30-2022 Erythrocyte distribution width (RBC) [Entitic vol] 56.6 fL 35.1-43.9 [facility] Erythrocyte distribution width (RBC) [Ratio] 14.3 % 11.6-14.6 [facility] Immature granulocytes/100 WBC (Bld) 0.000 % 0.0-0.9 [facility] Comment on above: IG% - Immature Granu locytes (promyelocytes, myelocytes and metamyelocytes) > 1% indicates that a LEFT SHIFT is Present. MCH (RBC) [Entitic mass] 36.6 pg 27.0-32.0 [facility] Nucleated RBC/100 WBC (Bld) [Ratio] 0 % 0-5 [facility] MCHC Auto (RBC) [Mass/Vol]Or dered By: Reji Reyna on 09-30-2022 MCHC (RBC) [Mass/Vol] 33.9 g/dL 32-36 [facility] No Panel InformationOrdered By: merylpalermogarfield Reyna on 09-30-2022 Estimated GFR (MDRD) Amer 112 mL/min >60 [facility] Comment on above: GFR Calc Estimated GFR (MDRD) Non-Af Amer 92 mL/min >60 [facility] Comment on above: Non- GFR Calc Platelets bldOrdered By: Fredy edwardogarfield Reyna on 09-30-2022 Platelets (Bld) [#/Vol] 104 10*3/uL 150-450 [facility] Serum or plasma albumin yonatan urement (mass/volume)Ordered By: Reji Reyna on 09-30-2022 Albumin [Mass/Vol] 2.7 g/dL 3.2-5.0 [facility] Serum or plasma albumin/glob ulin mass ratioOrdered By: Reji Reyna on 09-30-2022 Albumin/Globulin [Mass ratio] 0.7 {ratio} 0.9-2.4 [facility] Serum or plasma calcium yonatan urement (mass/volume)Ordered By: Reji Reyna on 09-30-2022 Calcium [Mass/Vol] 8.8 mg/dL 8.5-10.1 [facility] Serum or plasma creatinine m easurement (mass/volume)Ordered By: Reji Reyna on 09-30-2022 Creatinine [Mass/Vol] 0.65 mg/dL 0.55-1.02 [facility] Comment on above: The validity of the calculated GFR & GFRAA in patients over 70 years has not been determined. Clinical correlation is essential. Serum or plasma urea nitroge n measurement (mass/volume)Ordered By: Reji Reyna on 09-30-2022 Urea nitrogen [Mass/Vol] 13 mg/dL 7-18 [facility] Thin prep Papanicolaou smear with manual screeningOrdered By: Reji Reyna on 09-30-2022 Thin prep Papanicolaou smear with manual screening 27 U/L 15-37 [facility] Thin prep Papanicolaou smear with manual screening 5 5-15 [facility] Absolute lymphocyte countOrd ered By: Reji Reyna on 09-19-2022 Lymphocytes Auto (Unsp spec) [#/Vol] 1.39 10*3/uL 0.83-4.51 [facility] Basophil percentageOrdered B y: Reji Reyna on 09-19-2022 Basophils/100 WBC (Bld) 0.5 % 0-1 [facility] Eosinophils/100 WBC (Bld) 2.0 % 0-5 [facility] Neutrophils (Bld) [#/Vol] 2.1 10*3/uL 2.0-7.7 [facility] Neutrophils/100 WBC (Bld) 51.6 % 47-70 [facility] WBC (Bld) [#/Vol] 4.1 10*3/uL 4.4-11.0 [facility] Blood erythrocytes count (nu mber/volume)Ordered By: Reji Reyna on 09-19-2022 RBC (Bld) [#/Vol] 2.84 10*6/uL 4.2-5.4 [facility] Blood hemoglobin measurement (mass/volume)Ordered By: Reji Reyna on 09-19-2022 Hemoglobin (Bld) [Mass/Vol] 10.2 g/dL 12.0-15.0 [facility] Blood lymphocytes/100 leukoc ytesOrdered By: Reji Reyna on 09-19-2022 Lymphocytes/100 WBC (Bld) 34.3 % 19-41 [facility] Blood monocytes/100 leukocyt esOrdered By: Reji Reyna on 09-19-2022 Monocytes/100 WBC (Bld) 11.4 % 0-10 [facility] Blood platelet mean volumeOr dered By: Reji Reyna on 09-19-2022 Platelet mean volume (Bld) [Entitic vol] 9.9 fL 6.2-12.0 [facility] Determination of erythrocyte mean corpuscular volume (MCV)Ordered By: Reji Reyna on 09-19-2022 MCV (RBC) [Entitic vol] 106.3 fL 81-99 [facility] Hematocrit Auto (Bld) [Volum e fraction]Ordered By: Reji Reyna on 09-19-2022 Hematocrit (Bld) [Volume fraction] 30.2 % 37-47 [facility] Laboratory - Hematology and Cell countsOrdered By: Reji Reyna on 09-19-2022 Erythrocyte distribution width (RBC) [Entitic vol] 56.1 fL 35.1-43.9 [facility] Erythrocyte distribution width (RBC) [Ratio] 14.3 % 11.6-14.6 [facility] Immature granulocytes/100 WBC (Bld) 0.200 % 0.0-0.9 [facility] Comment on above: IG% - Immature Granu locytes (promyelocytes, myelocytes and metamyelocytes) > 1% indicates that a LEFT SHIFT is Present. MCH (RBC) [Entitic mass] 35.9 pg 27.0-32.0 [facility] Nucleated RBC/100 WBC (Bld) [Ratio] 0 % 0-5 [facility] MCHC Auto (RBC) [Mass/Vol]Or dered By: Reji Reyna on 09-19-2022 MCHC (RBC) [Mass/Vol] 33.8 g/dL 32-36 [facility] Platelets bldOrdered By: Fredy Reyna on 09-19-2022 Platelets (Bld) [#/Vol] 106 10*3/uL 150-450 [facility] Absolute lymphocyte countOrd ered By: Reji Reyna on 09-02-2022 Lymphocytes Auto (Unsp spec) [#/Vol] 1.47 10*3/uL 0.83-4.51 [facility] Basophil percentageOrdered B y: Reji Reyna on 09-02-2022 Basophils/100 WBC (Bld) 0.8 % 0-1 [facility] Bilirubin [Mass/Vol] 0.90 mg/dL 0.20-1.00 [facility] Comment on above: For patients on eltr ombopag therapy, use of Dimension Walker TBIL is not recommended. Chloride [Moles/Vol] 110 mmol/L 98-107 [facility] Eosinophils/100 WBC (Bld) 1.6 % 0-5 [facility] Glucose [Mass/Vol] 83 mg/dL 74-106 [facility] Neutrophils (Bld) [#/Vol] 3.6 10*3/uL 2.0-7.7 [facility] Neutrophils/100 WBC (Bld) 60.1 % 47-70 [facility] Potassium [Moles/Vol] 4.0 mmol/L 3.5-5.1 [facility] Protein [Mass/Vol] 7.5 g/dL 6.4-8.2 [facility] Sodium [Moles/Vol] 141 mmol/L 136-145 [facility] WBC (Bld) [#/Vol] 6.1 10*3/uL 4.4-11.0 [facility] Blood erythrocytes count (nu mber/volume)Ordered By: Reji Reyna on 09-02-2022 RBC (Bld) [#/Vol] 3.50 10*6/uL 4.2-5.4 [facility] Blood hemoglobin measurement (mass/volume)Ordered By: Reji Reyna on 09-02-2022 Hemoglobin (Bld) [Mass/Vol] 12.2 g/dL 12.0-15.0 [facility] Blood lymphocytes/100 leukoc ytesOrdered By: Reji Reyna on 09-02-2022 Lymphocytes/100 WBC (Bld) 24.2 % 19-41 [facility] Blood monocytes/100 leukocyt esOrdered By: Jaspalermogarfield Reyna on 09-02-2022 Monocytes/100 WBC (Bld) 13.0 % 0-10 [facility] Blood platelet mean volumeOr dered By: Reji Reyna on 09-02-2022 Platelet mean volume (Bld) [Entitic vol] 9.7 fL 6.2-12.0 [facility] Determination of erythrocyte mean corpuscular volume (MCV)Ordered By: Reji Reyna on 09-02-2022 MCV (RBC) [Entitic vol] 105.7 fL 81-99 [facility] Hematocrit Auto (Bld) [Volum e fraction]Ordered By: Reji Reyna on 09-02-2022 Hematocrit (Bld) [Volume fraction] 37.0 % 37-47 [facility] Laboratory - Chemistry and C hemistry - challengeOrdered By: Reji Reyna on 09-02-2022 ALP [Catalytic activity/Vol] 93 U/L 45-117 [facility] ALT [Catalytic activity/Vol] 24 U/L 13-56 [facility] CO2 [Moles/Vol] 25.0 mmol/L 21.0-32.0 [facility] Globulin (S) [Mass/Vol] 4.5 g/dL 2.2-4.2 [facility] Urea nitrogen/Creatinine [Mass ratio] 17.3 mg/mg 10-20 [facility] Laboratory - Hematology and Cell countsOrdered By: Reji Reyna on 09-02-2022 Erythrocyte distribution width (RBC) [Entitic vol] 53.6 fL 35.1-43.9 [facility] Erythrocyte distribution width (RBC) [Ratio] 13.7 % 11.6-14.6 [facility] Immature granulocytes/100 WBC (Bld) 0.300 % 0.0-0.9 [facility] Comment on above: IG% - Immature Granu locytes (promyelocytes, myelocytes and metamyelocytes) > 1% indicates that a LEFT SHIFT is Present. MCH (RBC) [Entitic mass] 34.9 pg 27.0-32.0 [facility] Nucleated RBC/100 WBC (Bld) [Ratio] 0 % 0-5 [facility] MCHC Auto (RBC) [Mass/Vol]Or dered By: Reji Reyna on 09-02-2022 MCHC (RBC) [Mass/Vol] 33.0 g/dL 32-36 [facility] No Panel InformationOrdered By: Reji Reyna on 09-02-2022 Estimated GFR (MDRD) Amer 103 mL/min >60 [facility] Comment on above: GFR Calc Estimated GFR (MDRD) Non-Af Amer 85 mL/min >60 [facility] Comment on above: Non- GFR Calc Platelets bldOrdered By: Fredy Reyna on 09-02-2022 Platelets (Bld) [#/Vol] 104 10*3/uL 150-450 [facility] Serum or plasma albumin yonatan urement (mass/volume)Ordered By: Reji Reyna on 09-02-2022 Albumin [Mass/Vol] 3.0 g/dL 3.2-5.0 [facility] Serum or plasma albumin/glob ulin mass ratioOrdered By: Reji Reyna on 09-02-2022 Albumin/Globulin [Mass ratio] 0.7 {ratio} 0.9-2.4 [facility] Serum or plasma calcium yonatan urement (mass/volume)Ordered By: Reji Reyna on 09-02-2022 Calcium [Mass/Vol] 9.5 mg/dL 8.5-10.1 [facility] Serum or plasma creatinine m easurement (mass/volume)Ordered By: Reji Reyna on 09-02-2022 Creatinine [Mass/Vol] 0.69 mg/dL 0.55-1.02 [facility] Comment on above: The validity of the calculated GFR & GFRAA in patients over 70 years has not been determined. Clinical correlation is essential. Serum or plasma urea nitroge n measurement (mass/volume)Ordered By: Reji Reyna on 09-02-2022 Urea nitrogen [Mass/Vol] 12 mg/dL 7-18 [facility] Thin prep Papanicolaou smear with manual screeningOrdered By: Reji Reyna on 09-02-2022 Thin prep Papanicolaou smear with manual screening 27 U/L 15-37 [facility] Thin prep Papanicolaou smear with manual screening 6 5-15 [facility] Absolute lymphocyte countOrd ered By: Reji Reyna on 07-29-2022 Lymphocytes Auto (Unsp spec) [#/Vol] 1.03 10*3/uL 0.83-4.51 [facility] Basophil percentageOrdered B y: Reji Reyna on 07-29-2022 Basophils/100 WBC (Bld) 0.6 % 0-1 [facility] Bilirubin [Mass/Vol] 0.80 mg/dL 0.20-1.00 [facility] Comment on above: For patients on eltr ombopag therapy, use of Dimension Walker TBIL is not recommended. Chloride [Moles/Vol] 110 mmol/L 98-107 [facility] Eosinophils/100 WBC (Bld) 1.8 % 0-5 [facility] Glucose [Mass/Vol] 75 mg/dL 74-106 [facility] Neutrophils (Bld) [#/Vol] 3.1 10*3/uL 2.0-7.7 [facility] Neutrophils/100 WBC (Bld) 62.1 % 47-70 [facility] Potassium [Moles/Vol] 4.1 mmol/L 3.5-5.1 [facility] Protein [Mass/Vol] 6.9 g/dL 6.4-8.2 [facility] Sodium [Moles/Vol] 141 mmol/L 136-145 [facility] WBC (Bld) [#/Vol] 5.0 10*3/uL 4.4-11.0 [facility] Blood erythrocytes count (nu mber/volume)Ordered By: Reji Reyna on 07-29-2022 RBC (Bld) [#/Vol] 3.25 10*6/uL 4.2-5.4 [facility] Blood hemoglobin measurement (mass/volume)Ordered By: Reji Reyna on 07-29-2022 Hemoglobin (Bld) [Mass/Vol] 11.6 g/dL 12.0-15.0 [facility] Blood lymphocytes/100 leukoc ytesOrdered By: Reji Reyna on 07-29-2022 Lymphocytes/100 WBC (Bld) 20.8 % 19-41 [facility] Blood monocytes/100 leukocyt esOrdered By: Reji Reyna on 07-29-2022 Monocytes/100 WBC (Bld) 14.5 % 0-10 [facility] Blood platelet mean volumeOr dered By: Reji Reyna on 07-29-2022 Platelet mean volume (Bld) [Entitic vol] 9.7 fL 6.2-12.0 [facility] Determination of erythrocyte mean corpuscular volume (MCV)Ordered By: Reji Reyna on 07-29-2022 MCV (RBC) [Entitic vol] 106.5 fL 81-99 [facility] Hematocrit Auto (Bld) [Volum e fraction]Ordered By: Reji Reyna on 07-29-2022 Hematocrit (Bld) [Volume fraction] 34.6 % 37-47 [facility] Laboratory - Chemistry and C hemistry - challengeOrdered By: Reji Reyna on 07-29-2022 ALP [Catalytic activity/Vol] 91 U/L 45-117 [facility] ALT [Catalytic activity/Vol] 23 U/L 13-56 [facility] CO2 [Moles/Vol] 24.0 mmol/L 21.0-32.0 [facility] Globulin (S) [Mass/Vol] 4.1 g/dL 2.2-4.2 [facility] Urea nitrogen/Creatinine [Mass ratio] 23.1 mg/mg 10-20 [facility] Laboratory - Hematology and Cell countsOrdered By: Reji Reyna on 07-29-2022 Erythrocyte distribution width (RBC) [Entitic vol] 53.7 fL 35.1-43.9 [facility] Erythrocyte distribution width (RBC) [Ratio] 13.7 % 11.6-14.6 [facility] Immature granulocytes/100 WBC (Bld) 0.200 % 0.0-0.9 [facility] Comment on above: IG% - Immature Granu locytes (promyelocytes, myelocytes and metamyelocytes) > 1% indicates that a LEFT SHIFT is Present. MCH (RBC) [Entitic mass] 35.7 pg 27.0-32.0 [facility] Nucleated RBC/100 WBC (Bld) [Ratio] 0 % 0-5 [facility] MCHC Auto (RBC) [Mass/Vol]Or dered By: Reji Reyna on 07-29-2022 MCHC (RBC) [Mass/Vol] 33.5 g/dL 32-36 [facility] No Panel InformationOrdered By: Reji Reyna on 07-29-2022 Estimated GFR (MDRD) Amer 131 mL/min >60 [facility] Comment on above: GFR Calc Estimated GFR (MDRD) Non-Af Amer 109 mL/min >60 [facility] Comment on above: Non- GFR Calc Platelets bldOrdered By: Fredy Reyna on 07-29-2022 Platelets (Bld) [#/Vol] 112 10*3/uL 150-450 [facility] Serum or plasma albumin yonatan urement (mass/volume)Ordered By: Reji Reyna on 07-29-2022 Albumin [Mass/Vol] 2.8 g/dL 3.2-5.0 [facility] Serum or plasma albumin/glob ulin mass ratioOrdered By: Reji Reyna on 07-29-2022 Albumin/Globulin [Mass ratio] 0.7 {ratio} 0.9-2.4 [facility] Serum or plasma calcium yonatan urement (mass/volume)Ordered By: Reji Reyna on 07-29-2022 Calcium [Mass/Vol] 9.4 mg/dL 8.5-10.1 [facility] Serum or plasma creatinine m easurement (mass/volume)Ordered By: Reji Reyna on 07-29-2022 Creatinine [Mass/Vol] 0.56 mg/dL 0.55-1.02 [facility] Comment on above: The validity of the calculated GFR & GFRAA in patients over 70 years has not been determined. Clinical correlation is essential. Serum or plasma urea nitroge n measurement (mass/volume)Ordered By: Reji Reyna on 07-29-2022 Urea nitrogen [Mass/Vol] 13 mg/dL - [facility] Thin prep Papanicolaou smear with manual screeningOrdered By: merylpalermogarfield Reyna on 07-29-2022 Thin prep Papanicolaou smear with manual screening 29 U/L [facility] Thin prep Papanicolaou smear with manual screening 7 - [facility] Absolute lymphocyte countOrd ered By: Reji Reyna on 07-01-2022 Lymphocytes Auto (Unsp spec) [#/Vol] 1.43 10*3/uL 0.83-4.51 [facility] Basophil percentageOrdered B y: Angelitomerylmichaelgarfield Reyna on 07-01-2022 Basophils/100 WBC (Bld) 1.0 % 0-1 [facility] Bilirubin [Mass/Vol] 0.60 mg/dL 0.20-1.00 [facility] Comment on above: For patients on eltr ombopag therapy, use of Dimension Walker TBIL is not recommended. Chloride [Moles/Vol] 109 mmol/L 98-107 [facility] Eosinophils/100 WBC (Bld) 2.0 % 0-5 [facility] Glucose [Mass/Vol] 80 mg/dL 74-106 [facility] Neutrophils (Bld) [#/Vol] 2.0 10*3/uL 2.0-7.7 [facility] Neutrophils/100 WBC (Bld) 49.1 % 47-70 [facility] Potassium [Moles/Vol] 4.1 mmol/L 3.5-5.1 [facility] Protein [Mass/Vol] 6.3 g/dL 6.4-8.2 [facility] Sodium [Moles/Vol] 140 mmol/L 136-145 [facility] WBC (Bld) [#/Vol] 4.1 10*3/uL 4.4-11.0 [facility] Blood erythrocytes count (nu mber/volume)Ordered By: Reji Reyna on 07-01-2022 RBC (Bld) [#/Vol] 3.07 10*6/uL 4.2-5.4 [facility] Blood hemoglobin measurement (mass/volume)Ordered By: Reji Reyna on 07-01-2022 Hemoglobin (Bld) [Mass/Vol] 10.9 g/dL 12.0-15.0 [facility] Blood lymphocytes/100 leukoc ytesOrdered By: Reji Reyna on 07-01-2022 Lymphocytes/100 WBC (Bld) 35.3 % 19-41 [facility] Blood monocytes/100 leukocyt esOrdered By: Reji Reyna on 07-01-2022 Monocytes/100 WBC (Bld) 12.1 % 0-10 [facility] Blood platelet mean volumeOr dered By: Reji Reyna on 07-01-2022 Platelet mean volume (Bld) [Entitic vol] 10.1 fL 6.2-12.0 [facility] Determination of erythrocyte mean corpuscular volume (MCV)Ordered By: Reji Reyna on 07-01-2022 MCV (RBC) [Entitic vol] 103.9 fL 81-99 [facility] Hematocrit Auto (Bld) [Volum e fraction]Ordered By: Reji Reyna on 07-01-2022 Hematocrit (Bld) [Volume fraction] 31.9 % 37-47 [facility] Laboratory - Chemistry and C hemistry - challengeOrdered By: Reji Reyna on 07-01-2022 ALP [Catalytic activity/Vol] 93 U/L 45-117 [facility] ALT [Catalytic activity/Vol] 23 U/L 13-56 [facility] CO2 [Moles/Vol] 26.0 mmol/L 21.0-32.0 [facility] Globulin (S) [Mass/Vol] 3.5 g/dL 2.2-4.2 [facility] Urea nitrogen/Creatinine [Mass ratio] 16.4 mg/mg 10-20 [facility] Laboratory - Hematology and Cell countsOrdered By: Reji Reyna on 07-01-2022 Erythrocyte distribution width (RBC) [Entitic vol] 53.4 fL 35.1-43.9 [facility] Erythrocyte distribution width (RBC) [Ratio] 13.9 % 11.6-14.6 [facility] Immature granulocytes/100 WBC (Bld) 0.500 % 0.0-0.9 [facility] Comment on above: IG% - Immature Granu locytes (promyelocytes, myelocytes and metamyelocytes) > 1% indicates that a LEFT SHIFT is Present. MCH (RBC) [Entitic mass] 35.5 pg 27.0-32.0 [facility] Nucleated RBC/100 WBC (Bld) [Ratio] 0 % 0-5 [facility] MCHC Auto (RBC) [Mass/Vol]Or dered By: Reji Reyna on 07-01-2022 MCHC (RBC) [Mass/Vol] 34.2 g/dL 32-36 [facility] No Panel InformationOrdered By: Reji Reyna on 07-01-2022 Estimated GFR (MDRD) Amer 120 mL/min >60 [facility] Comment on above: GFR Calc Estimated GFR (MDRD) Non-Af Amer 99 mL/min >60 [facility] Comment on above: Non- GFR Calc Platelets bldOrdered By: Fredy Reyna on 07-01-2022 Platelets (Bld) [#/Vol] 104 10*3/uL 150-450 [facility] Serum or plasma albumin yonatan urement (mass/volume)Ordered By: Reji Reyna on 07-01-2022 Albumin [Mass/Vol] 2.8 g/dL 3.2-5.0 [facility] Serum or plasma albumin/glob ulin mass ratioOrdered By: Reji Reyna on 07-01-2022 Albumin/Globulin [Mass ratio] 0.8 {ratio} 0.9-2.4 [facility] Serum or plasma calcium yonatan urement (mass/volume)Ordered By: Reji Reyna on 07-01-2022 Calcium [Mass/Vol] 9.3 mg/dL 8.5-10.1 [facility] Serum or plasma creatinine m easurement (mass/volume)Ordered By: Reji Reyna on 07-01-2022 Creatinine [Mass/Vol] 0.61 mg/dL 0.55-1.02 [facility] Comment on above: The validity of the calculated GFR & GFRAA in patients over 70 years has not been determined. Clinical correlation is essential. Serum or plasma urea nitroge n measurement (mass/volume)Ordered By: Reji Reyna on 07-01-2022 Urea nitrogen [Mass/Vol] 10 mg/dL 7-18 [facility] Thin prep Papanicolaou smear with manual screeningOrdered By: Reji Reyna on 07-01-2022 Thin prep Papanicolaou smear with manual screening 28 U/L 15-37 [facility] Thin prep Papanicolaou smear with manual screening 5 5-15 [facility] XR RIBS 2V AP/OBL RIGHTon [facility] Absolute lymphocyte countOrd ered By: Reji Reyna on 06-03-2022 Lymphocytes Auto (Unsp spec) [#/Vol] 1.54 10*3/uL 0.83-4.51 [facility] Basophil percentageOrdered B y: Reji Reyna on 06-03-2022 Basophils/100 WBC (Bld) 0.5 % 0-1 [facility] Bilirubin [Mass/Vol] 0.60 mg/dL 0.20-1.00 [facility] Comment on above: For patients on eltr ombopag therapy, use of Dimension Walker TBIL is not recommended. Chloride [Moles/Vol] 108 mmol/L 98-107 [facility] Eosinophils/100 WBC (Bld) 2.4 % 0-5 [facility] Glucose [Mass/Vol] 86 mg/dL 74-106 [facility] Neutrophils (Bld) [#/Vol] 3.2 10*3/uL 2.0-7.7 [facility] Neutrophils/100 WBC (Bld) 58.6 % 47-70 [facility] Potassium [Moles/Vol] 4.2 mmol/L 3.5-5.1 [facility] Protein [Mass/Vol] 7.2 g/dL 6.4-8.2 [facility] Sodium [Moles/Vol] 141 mmol/L 136-145 [facility] WBC (Bld) [#/Vol] 5.5 10*3/uL 4.4-11.0 [facility] Blood erythrocytes count (nu mber/volume)Ordered By: Reji Reyna on 06-03-2022 RBC (Bld) [#/Vol] 3.73 10*6/uL 4.2-5.4 [facility] Blood hemoglobin measurement (mass/volume)Ordered By: Reji Reyna on 06-03-2022 Hemoglobin (Bld) [Mass/Vol] 13.1 g/dL 12.0-15.0 [facility] Blood lymphocytes/100 leukoc ytesOrdered By: Reji Reyna on 06-03-2022 Lymphocytes/100 WBC (Bld) 27.8 % 19-41 [facility] Blood manual differential co mment interpretation (narrative result)Ordered By: Reji Reyna on 06-03-2022 Manual differential comment [place] (Bld) [Interp] SCANNED [facility] Blood monocytes/100 leukocyt esOrdered By: Reji Reyna on 06-03-2022 Monocytes/100 WBC (Bld) 10.3 % 0-10 [facility] Blood platelet mean volumeOr dered By: Reji Reyna on 06-03-2022 Platelet mean volume (Bld) [Entitic vol] 9.9 fL 6.2-12.0 [facility] Determination of erythrocyte mean corpuscular volume (MCV)Ordered By: Reji Reyna on 06-03-2022 MCV (RBC) [Entitic vol] 102.7 fL 81-99 [facility] Hematocrit Auto (Bld) [Volum e fraction]Ordered By: merylpalermogarfield Reyna on 06-03-2022 Hematocrit (Bld) [Volume fraction] 38.3 % 37-47 [facility] Laboratory - Chemistry and C hemistry - challengeOrdered By: merylpalermogarfield Reyna on 06-03-2022 ALP [Catalytic activity/Vol] 98 U/L 45-117 [facility] ALT [Catalytic activity/Vol] 33 U/L 13-56 [facility] CO2 [Moles/Vol] 26.0 mmol/L 21.0-32.0 [facility] Globulin (S) [Mass/Vol] 4.2 g/dL 2.2-4.2 [facility] Urea nitrogen/Creatinine [Mass ratio] 28.5 mg/mg 10-20 [facility] Laboratory - Hematology and Cell countsOrdered By: Reji Reyna on 06-03-2022 Anisocytosis Ql (Bld) 1+ [facility] Erythrocyte distribution width (RBC) [Entitic vol] 68.7 fL 35.1-43.9 [facility] Erythrocyte distribution width (RBC) [Ratio] 18.0 % 11.6-14.6 [facility] Immature granulocytes/100 WBC (Bld) 0.400 % 0.0-0.9 [facility] Comment on above: IG% - Immature Granu locytes (promyelocytes, myelocytes and metamyelocytes) > 1% indicates that a LEFT SHIFT is Present. MCH (RBC) [Entitic mass] 35.1 pg 27.0-32.0 [facility] Nucleated RBC/100 WBC (Bld) [Ratio] 0 % 0-5 [facility] MCHC Auto (RBC) [Mass/Vol]Or dered By: Reji Reyna on 06-03-2022 MCHC (RBC) [Mass/Vol] 34.2 g/dL 32-36 [facility] No Panel InformationOrdered By: Reji Reyna on 06-03-2022 Estimated GFR (MDRD) Amer 123 mL/min >60 [facility] Comment on above: GFR Calc Estimated GFR (MDRD) Non-Af Amer 101 mL/min >60 [facility] Comment on above: Non- GFR Calc Platelets bldOrdered By: Fredy Reyna on 06-03-2022 Platelets (Bld) [#/Vol] 113 10*3/uL 150-450 [facility] Serum or plasma albumin yonatan urement (mass/volume)Ordered By: Reji Reyna on 06-03-2022 Albumin [Mass/Vol] 3.0 g/dL 3.2-5.0 [facility] Serum or plasma albumin/glob ulin mass ratioOrdered By: Reji Reyna on 06-03-2022 Albumin/Globulin [Mass ratio] 0.7 {ratio} 0.9-2.4 [facility] Serum or plasma calcium yonatan urement (mass/volume)Ordered By: Reji Reyna on 06-03-2022 Calcium [Mass/Vol] 9.5 mg/dL 8.5-10.1 [facility] Serum or plasma creatinine m easurement (mass/volume)Ordered By: Reji Reyna on 06-03-2022 Creatinine [Mass/Vol] 0.60 mg/dL 0.55-1.02 [facility] Comment on above: The validity of the calculated GFR & GFRAA in patients over 70 years has not been determined. Clinical correlation is essential. Serum or plasma urea nitroge n measurement (mass/volume)Ordered By: Reji Reyna on 06-03-2022 Urea nitrogen [Mass/Vol] 17 mg/dL 7-18 [facility] Thin prep Papanicolaou smear with manual screeningOrdered By: Reji Reyna on 06-03-2022 Thin prep Papanicolaou smear with manual screening 33 U/L 15-37 [facility] Thin prep Papanicolaou smear with manual screening 7 5-15 [facility] Absolute lymphocyte countOrd ered By: Alejo Salcido on 05-06-2022 Lymphocytes Auto (Unsp spec) [#/Vol] 1.42 10*3/uL 0.83-4.51 [facility] Basophil percentageOrdered B y: Alejo Salcido on 05-06-2022 Basophils/100 WBC (Bld) 0.6 % 0-1 [facility] Bilirubin [Mass/Vol] 0.50 mg/dL 0.20-1.00 [facility] Comment on above: For patients on eltr ombopag therapy, use of Dimension Walker TBIL is not recommended. Chloride [Moles/Vol] 110 mmol/L 98-107 [facility] Eosinophils/100 WBC (Bld) 2.1 % 0-5 [facility] Glucose [Mass/Vol] 84 mg/dL 74-106 [facility] Neutrophils (Bld) [#/Vol] 2.6 10*3/uL 2.0-7.7 [facility] Neutrophils/100 WBC (Bld) 53.7 % 47-70 [facility] Potassium [Moles/Vol] 4.1 mmol/L 3.5-5.1 [facility] Protein [Mass/Vol] 6.9 g/dL 6.4-8.2 [facility] Sodium [Moles/Vol] 142 mmol/L 136-145 [facility] WBC (Bld) [#/Vol] 4.8 10*3/uL 4.4-11.0 [facility] Blood erythrocytes count (nu mber/volume)Ordered By: Alejo Salcido on 05-06-2022 RBC (Bld) [#/Vol] 3.47 10*6/uL 4.2-5.4 [facility] Blood hemoglobin measurement (mass/volume)Ordered By: Alejo Salcido on 05-06-2022 Hemoglobin (Bld) [Mass/Vol] 11.1 g/dL 12.0-15.0 [facility] Blood lymphocytes/100 leukoc ytesOrdered By: Alejo Salcido on 05-06-2022 Lymphocytes/100 WBC (Bld) 29.8 % 19-41 [facility] Blood monocytes/100 leukocyt esOrdered By: Alejo Salcido on 05-06-2022 Monocytes/100 WBC (Bld) 13.4 % 0-10 [facility] Blood platelet mean volumeOr dered By: Alejo Salcido on 05-06-2022 Platelet mean volume (Bld) [Entitic vol] 9.4 fL 6.2-12.0 [facility] Determination of erythrocyte mean corpuscular volume (MCV)Ordered By: Alejo Salcido on 05-06-2022 MCV (RBC) [Entitic vol] 98.3 fL 81-99 [facility] Hematocrit Auto (Bld) [Volum e fraction]Ordered By: Alejo Salcido on 05-06-2022 Hematocrit (Bld) [Volume fraction] 34.1 % 37-47 [facility] Laboratory - Chemistry and C hemistry - challengeOrdered By: Alejo Salcido on 05-06-2022 ALP [Catalytic activity/Vol] 117 U/L 45-117 [facility] ALT [Catalytic activity/Vol] 21 U/L 13-56 [facility] CO2 [Moles/Vol] 26.0 mmol/L 21.0-32.0 [facility] Globulin (S) [Mass/Vol] 4.3 g/dL 2.2-4.2 [facility] Urea nitrogen/Creatinine [Mass ratio] 15.9 mg/mg 10-20 [facility] Laboratory - Hematology and Cell countsOrdered By: Alejo Salcido on 05-06-2022 Anisocytosis Ql (Bld) 1+ [facility] Erythrocyte distribution width (RBC) [Entitic vol] 81.2 fL 35.1-43.9 [facility] Erythrocyte distribution width (RBC) [Ratio] 23.4 % 11.6-14.6 [facility] Immature granulocytes/100 WBC (Bld) 0.400 % 0.0-0.9 [facility] Comment on above: IG% - Immature Granu locytes (promyelocytes, myelocytes and metamyelocytes) > 1% indicates that a LEFT SHIFT is Present. MCH (RBC) [Entitic mass] 32.0 pg 27.0-32.0 [facility] Nucleated RBC/100 WBC (Bld) [Ratio] 0 % 0-5 [facility] MCHC Auto (RBC) [Mass/Vol]Or dered By: Alejo Salcido on 05-06-2022 MCHC (RBC) [Mass/Vol] 32.6 g/dL 32-36 [facility] No Panel InformationOrdered By: Alejo Salcido on 05-06-2022 Estimated GFR (MDRD) Amer 130 mL/min >60 [facility] Comment on above: GFR Calc Estimated GFR (MDRD) Non-Af Amer 108 mL/min >60 [facility] Comment on above: Non- GFR Calc Thyroid Stimulating Hormone (TSH) 1.29 uIU/mL 0.358-3.74 [facility] Platelets bldOrdered By: Levi Salcido on 05-06-2022 Platelets (Bld) [#/Vol] 110 10*3/uL 150-450 [facility] Serum or plasma albumin yonatan urement (mass/volume)Ordered By: Alejo Salcido on 05-06-2022 Albumin [Mass/Vol] 2.6 g/dL 3.2-5.0 [facility] Serum or plasma albumin/glob ulin mass ratioOrdered By: Alejo Salcido on 05-06-2022 Albumin/Globulin [Mass ratio] 0.6 {ratio} 0.9-2.4 [facility] Serum or plasma calcium yonatan urement (mass/volume)Ordered By: Alejo Salcido on 05-06-2022 Calcium [Mass/Vol] 9.1 mg/dL 8.5-10.1 [facility] Serum or plasma creatinine m easurement (mass/volume)Ordered By: Alejo Salcido on 05-06-2022 Creatinine [Mass/Vol] 0.57 mg/dL 0.55-1.02 [facility] Comment on above: The validity of the calculated GFR & GFRAA in patients over 70 years has not been determined. Clinical correlation is essential. Serum or plasma urea nitroge n measurement (mass/volume)Ordered By: Alejo Salcido on 05-06-2022 Urea nitrogen [Mass/Vol] 9 mg/dL 7-18 [facility] Thin prep Papanicolaou smear with manual screeningOrdered By: Alejo Salcido on 05-06-2022 Thin prep Papanicolaou smear with manual screening 26 U/L 15-37 [facility] Thin prep Papanicolaou smear with manual screening 6 5-15 [facility] Absolute lymphocyte countOrd ered By: Reji Reyna on 04-01-2022 Lymphocytes Auto (Unsp spec) [#/Vol] 1.69 10*3/uL 0.83-4.51 [facility] Basophil percentageOrdered B y: Reji Reyna on 04-01-2022 Basophils/100 WBC (Bld) 0.6 % 0-1 [facility] Bilirubin [Mass/Vol] 0.50 mg/dL 0.20-1.00 [facility] Comment on above: For patients on eltr ombopag therapy, use of Dimension Walker TBIL is not recommended. Chloride [Moles/Vol] 110 mmol/L 98-107 [facility] Eosinophils/100 WBC (Bld) 1.8 % 0-5 [facility] Glucose [Mass/Vol] 81 mg/dL 74-106 [facility] Neutrophils (Bld) [#/Vol] 2.7 10*3/uL 2.0-7.7 [facility] Neutrophils/100 WBC (Bld) 53.0 % 47-70 [facility] Potassium [Moles/Vol] 4.0 mmol/L 3.5-5.1 [facility] Protein [Mass/Vol] 6.9 g/dL 6.4-8.2 [facility] Sodium [Moles/Vol] 145 mmol/L 136-145 [facility] WBC (Bld) [#/Vol] 5.1 10*3/uL 4.4-11.0 [facility] Blood erythrocytes count (nu mber/volume)Ordered By: Reji Reyna on 04-01-2022 RBC (Bld) [#/Vol] 3.56 10*6/uL 4.2-5.4 [facility] Blood hemoglobin measurement (mass/volume)Ordered By: Reji Reyna on 04-01-2022 Hemoglobin (Bld) [Mass/Vol] 10.5 g/dL 12.0-15.0 [facility] Blood lymphocytes/100 leukoc ytesOrdered By: Reji Reyna on 04-01-2022 Lymphocytes/100 WBC (Bld) 33.2 % 19-41 [facility] Blood monocytes/100 leukocyt esOrdered By: Reji Reyna on 04-01-2022 Monocytes/100 WBC (Bld) 11.2 % 0-10 [facility] Blood platelet mean volumeOr dered By: Reji Reyna on 04-01-2022 Platelet mean volume (Bld) [Entitic vol] 10.3 fL 6.2-12.0 [facility] Determination of erythrocyte mean corpuscular volume (MCV)Ordered By: Reji Reyna on 04-01-2022 MCV (RBC) [Entitic vol] 92.7 fL 81-99 [facility] Hematocrit Auto (Bld) [Volum e fraction]Ordered By: Reji Reyna on 04-01-2022 Hematocrit (Bld) [Volume fraction] 33.0 % 37-47 [facility] Laboratory - Chemistry and C hemistry - challengeOrdered By: Jaspalermogarfield Reyna on 04-01-2022 ALP [Catalytic activity/Vol] 75 U/L 45-117 [facility] ALT [Catalytic activity/Vol] 21 U/L 13-56 [facility] CO2 [Moles/Vol] 25.0 mmol/L 21.0-32.0 [facility] Globulin (S) [Mass/Vol] 4.3 g/dL 2.2-4.2 [facility] Urea nitrogen/Creatinine [Mass ratio] 18.4 mg/mg 10-20 [facility] Laboratory - Hematology and Cell countsOrdered By: Reji Reyna on 04-01-2022 Anisocytosis Ql (Bld) RARE [facility] Erythrocyte distribution width (RBC) [Entitic vol] 73.0 fL 35.1-43.9 [facility] Erythrocyte distribution width (RBC) [Ratio] 22.1 % 11.6-14.6 [facility] Immature granulocytes/100 WBC (Bld) 0.200 % 0.0-0.9 [facility] Comment on above: IG% - Immature Granu locytes (promyelocytes, myelocytes and metamyelocytes) > 1% indicates that a LEFT SHIFT is Present. MCH (RBC) [Entitic mass] 29.5 pg 27.0-32.0 [facility] Nucleated RBC/100 WBC (Bld) [Ratio] 0 % 0-5 [facility] MCHC Auto (RBC) [Mass/Vol]Or dered By: Reji Reyna on 04-01-2022 MCHC (RBC) [Mass/Vol] 31.8 g/dL 32-36 [facility] No Panel InformationOrdered By: Reji Reyna on 04-01-2022 Estimated GFR (MDRD) Amer 101 mL/min >60 [facility] Comment on above: GFR Calc Estimated GFR (MDRD) Non-Af Amer 83 mL/min >60 [facility] Comment on above: Non- GFR Calc Platelets bldOrdered By: Fredy Reyna on 04-01-2022 Platelets (Bld) [#/Vol] 127 10*3/uL 150-450 [facility] Serum or plasma albumin yonatan urement (mass/volume)Ordered By: Reji Reyna on 04-01-2022 Albumin [Mass/Vol] 2.6 g/dL 3.2-5.0 [facility] Serum or plasma albumin/glob ulin mass ratioOrdered By: Reji Reyna on 04-01-2022 Albumin/Globulin [Mass ratio] 0.6 {ratio} 0.9-2.4 [facility] Serum or plasma calcium yonatan urement (mass/volume)Ordered By: Reji Reyna on 04-01-2022 Calcium [Mass/Vol] 9.1 mg/dL 8.5-10.1 [facility] Serum or plasma creatinine m easurement (mass/volume)Ordered By: Reji Reyna on 04-01-2022 Creatinine [Mass/Vol] 0.71 mg/dL 0.55-1.02 [facility] Comment on above: The validity of the calculated GFR & GFRAA in patients over 70 years has not been determined. Clinical correlation is essential. Serum or plasma urea nitroge n measurement (mass/volume)Ordered By: Reji Reyna on 04-01-2022 Urea nitrogen [Mass/Vol] 13 mg/dL 7-18 [facility] Thin prep Papanicolaou smear with manual screeningOrdered By: Reji Reyna on 04-01-2022 Thin prep Papanicolaou smear with manual screening 24 U/L 15-37 [facility] Thin prep Papanicolaou smear with manual screening 10 5-15 [facility] CBC W Ordered Manual Differe ntial panel (Bld)on 03-22-2022 Basophils (Bld) [#/Vol] 0.05 10*3/uL <0.11 k/uL [facility] Basophils/100 WBC (Bld) 0.8 % [facility] Eosinophils (Bld) [#/Vol] 0.09 10*3/uL <0.46 k/uL [facility] Eosinophils/100 WBC (Bld) 1.4 % [facility] Erythrocyte distribution width (RBC) [Ratio] 20.3 % High 11.5 - 15.0 % [facility] Hematocrit (Bld) [Volume fraction] 33.9 % Low 36.0 - 46.0 % [facility] Hemoglobin (Bld) [Mass/Vol] 10.8 g/dL Low 11.5 - 15.5 g/dL [facility] Immature granulocytes (Bld) [#/Vol] <0.10 k/uL [facility] Immature granulocytes/100 WBC (Bld) 0.3 % [facility] Lymphocytes (Bld) [#/Vol] 1.43 10*3/uL 1.00 - 4.00 k/uL [facility] Lymphocytes/100 WBC (Bld) 22.8 % [facility] MCH (RBC) [Entitic mass] 27.6 pg 26.0 - 34.0 pg [facility] MCHC (RBC) [Mass/Vol] 31.9 g/dL 30.5 - 36.0 g/dL [facility] MCV (RBC) [Entitic vol] 86.7 fL 80.0 - 100.0 fL [facility] Monocytes (Bld) [#/Vol] 0.85 10*3/uL <0.87 k/uL [facility] Monocytes/100 WBC (Bld) 13.6 % [facility] Neutrophils (Bld) [#/Vol] 3.83 10*3/uL 1.45 - 7.50 k/uL [facility] Neutrophils/100 WBC (Bld) 61.1 % [facility] Platelet mean volume (Bld) [Entitic vol] 9.7 fL 9.0 - 12.7 fL [facility] Platelets (Bld) [#/Vol] 136 10*3/uL Low 150 - 400 k/uL [facility] RBC (Bld) [#/Vol] 3.91 10*6/uL 3.90 - 5.2 0 m/uL [facility] WBC (Bld) [#/Vol] 6.27 10*3/uL 3.70 - 11.00 k/uL [facility] Transferrin receptor.soluble [Mass/Vol]on 03-15-2022 Transferrin receptor.soluble [Moles/Vol] 8.7 mg/L High 1.9 - 4.4 mg/L [facility] Comprehensive metabolic 2000 panelon 03-14-2022 Albumin [Mass/Vol] 3.6 g/dL Low 3.9 - 4.9 g/dL [facility] ALP [Catalytic activity/Vol] 100 U/L 34 - 123 U/L [facility] ALT [Catalytic activity/Vol] 14 U/L 7 - 38 U/L [facility] Anion gap [Moles/Vol] 9 mmol/L 9 - 18 mmol/L [facility] AST [Catalytic activity/Vol] 27 U/L 13 - 35 U/L [facility] Bilirubin [Mass/Vol] 0.6 mg/dL 0.2 - 1 .3 mg/dL [facility] Calcium [Mass/Vol] 9.4 mg/dL 8.5 - 10. 2 mg/dL [facility] Chloride [Moles/Vol] 104 mmol/L 97 - 10 5 mmol/L [facility] CO2 [Moles/Vol] 24 mmol/L 22 - 30 mmol/L [facility] Creatinine [Mass/Vol] 0.63 mg/dL 0.58 - 0.96 mg/dL [facility] Estimated Glomerular Filtration Rate 87 mL/min/1.73m >=60 mL/min/1.73 m [facility] Glucose [Mass/Vol] 120 mg/dL High 74 - 99 mg/dL [facility] Potassium [Moles/Vol] 3.9 mmol/L 3.7 - 5.1 mmol/L [facility] Protein [Mass/Vol] 7.3 g/dL 6.3 - 8.0 g/dL [facility] Sodium [Moles/Vol] 137 mmol/L 136 - 144 mmol/L [facility] Urea nitrogen [Mass/Vol] 14 mg/dL 7 - 21 mg/dL [facility] Iron and Iron binding capaci ty panelon 03-14-2022 Iron [Mass/Vol] 249 ug/dL High 41 - 186 ug/dL [facility] Iron binding capacity [Mass/Vol] 383 ug/dL 232 - 386 ug/dL [facility] Iron/TIBC [Molar ratio] 65.0 % High 15.0 - 57.0 % [facility] Laboratory - Chemistry and C hemistry - challengeon 03-14-2022 Ferritin [Mass/Vol] 45.9 ng/mL 14.7 - 205.1 ng/mL [facility] LDH [Catalytic activity/Vol] 194 U/L 135 - 214 U/L [facility] Laboratory - Hematology and Cell countson 03-14-2022 Reticulocytes (Bld) [#/Vol] 0.99448 10*3/uL 0.018 - 0.100 M/uL [facility] Reticulocytes (Bld) [#/Vol]o n 03-14-2022 Reticulocytes/100 RBC (Bld) 1.3 % 0.4 - 2.0 % [facility] Absolute lymphocyte countOrd ered By: Mitchell Living on 03-07-2022 Lymphocytes Auto (Unsp spec) [#/Vol] 1.39 10*3/uL 0.83-4.51 [facility] Basophil percentageOrdered B y: Hallam Living on 03-07-2022 Basophils/100 WBC (Bld) 1.0 % 0-1 [facility] Eosinophils/100 WBC (Bld) 2.0 % 0-5 [facility] Neutrophils (Bld) [#/Vol] 2.0 10*3/uL 2.0-7.7 [facility] Neutrophils/100 WBC (Bld) 48.5 % 47-70 [facility] WBC (Bld) [#/Vol] 4.1 10*3/uL 4.4-11.0 [facility] Blood erythrocytes count (nu mber/volume)Ordered By: Hallam Living on 03-07-2022 RBC (Bld) [#/Vol] 3.93 10*6/uL 4.2-5.4 [facility] Blood hemoglobin measurement (mass/volume)Ordered By: Hallam Living on 03-07-2022 Hemoglobin (Bld) [Mass/Vol] 10.8 g/dL 12.0-15.0 [facility] Blood lymphocytes/100 leukoc ytesOrdered By: Hallam Living on 03-07-2022 Lymphocytes/100 WBC (Bld) 34.1 % 19-41 [facility] Blood monocytes/100 leukocyt esOrdered By: Hallam Living on 03-07-2022 Monocytes/100 WBC (Bld) 14.2 % 0-10 [facility] Blood platelet mean volumeOr dered By: Hallam Living on 03-07-2022 Platelet mean volume (Bld) [Entitic vol] 9.7 fL 6.2-12.0 [facility] Determination of erythrocyte mean corpuscular volume (MCV)Ordered By: Hallam Living on 03-07-2022 MCV (RBC) [Entitic vol] 84.5 fL 81-99 [facility] Hematocrit Auto (Bld) [Volum e fraction]Ordered By: [facility] on 03-07-2022 Hematocrit (Bld) [Volume fraction] 33.2 % 37-47 [facility] Laboratory - Hematology and Cell countsOrdered By: [facility] on 03-07-2022 Erythrocyte distribution width (RBC) [Entitic vol] 50.5 fL 35.1-43.9 [facility] Erythrocyte distribution width (RBC) [Ratio] 16.3 % 11.6-14.6 [facility] Immature granulocytes/100 WBC (Bld) 0.200 % 0.0-0.9 [facility] Comment on above: IG% - Immature Granu locytes (promyelocytes, myelocytes and metamyelocytes) > 1% indicates that a LEFT SHIFT is Present. MCH (RBC) [Entitic mass] 27.5 pg 27.0-32.0 [facility] Nucleated RBC/100 WBC (Bld) [Ratio] 0 % 0-5 [facility] MCHC Auto (RBC) [Mass/Vol]Or dered By: Hallam Living on 03-07-2022 MCHC (RBC) [Mass/Vol] 32.5 g/dL 32-36 [facility] Comment on above: Delta: 30.2 on 03/04-044 Platelets bldOrdered By: Cesar cruz Living on 03-07-2022 Platelets (Bld) [#/Vol] 155 10*3/uL 150-450 [facility] Absolute lymphocyte countOrd ered By: Alejo Salcido on 03-04-2022 Lymphocytes Auto (Unsp spec) [#/Vol] 1.30 10*3/uL 0.83-4.51 [facility] Basophil percentageOrdered B y: Alejo Salcido on 03-04-2022 Basophils/100 WBC (Bld) 0.5 % 0-1 [facility] Bilirubin [Mass/Vol] 0.50 mg/dL 0.20-1.00 [facility] Comment on above: For patients on eltr ombopag therapy, use of Dimension Walker TBIL is not recommended. Chloride [Moles/Vol] 113 mmol/L 98-107 [facility] Eosinophils/100 WBC (Bld) 2.8 % 0-5 [facility] Glucose [Mass/Vol] 90 mg/dL 74-106 [facility] Neutrophils (Bld) [#/Vol] 2.1 10*3/uL 2.0-7.7 [facility] Neutrophils/100 WBC (Bld) 51.4 % 47-70 [facility] Potassium [Moles/Vol] 4.4 mmol/L 3.5-5.1 [facility] Protein [Mass/Vol] 7.2 g/dL 6.4-8.2 [facility] Sodium [Moles/Vol] 143 mmol/L 136-145 [facility] WBC (Bld) [#/Vol] 4.0 10*3/uL 4.4-11.0 [facility] Blood erythrocytes count (nu mber/volume)Ordered By: Aleoj Salcido on 03-04-2022 RBC (Bld) [#/Vol] 2.94 10*6/uL 4.2-5.4 [facility] Blood hemoglobin measurement (mass/volume)Ordered By: Alejo Salcido on 03-04-2022 Hemoglobin (Bld) [Mass/Vol] 7.7 g/dL 12.0-15.0 [facility] Blood lymphocytes/100 leukoc ytesOrdered By: Alejo Salcido on 03-04-2022 Lymphocytes/100 WBC (Bld) 32.5 % 19-41 [facility] Blood monocytes/100 leukocyt esOrdered By: Alejo Salcido on 03-04-2022 Monocytes/100 WBC (Bld) 12.8 % 0-10 [facility] Blood platelet mean volumeOr dered By: Alejo Salcido on 03-04-2022 Platelet mean volume (Bld) [Entitic vol] 11.0 fL 6.2-12.0 [facility] Determination of erythrocyte mean corpuscular volume (MCV)Ordered By: Alejo Salcido on 03-04-2022 MCV (RBC) [Entitic vol] 86.7 fL 81-99 [facility] Hematocrit Auto (Bld) [Volum e fraction]Ordered By: Alejo Salcido on 03-04-2022 Hematocrit (Bld) [Volume fraction] 25.5 % 37-47 [facility] Laboratory - Chemistry and C hemistry - challengeOrdered By: Alejo Salcido on 03-04-2022 ALP [Catalytic activity/Vol] 87 U/L 45-117 [facility] ALT [Catalytic activity/Vol] 19 U/L 13-56 [facility] CO2 [Moles/Vol] 25.0 mmol/L 21.0-32.0 [facility] Globulin (S) [Mass/Vol] 4.5 g/dL 2.2-4.2 [facility] Urea nitrogen/Creatinine [Mass ratio] 18.4 mg/mg 10-20 [facility] Laboratory - Hematology and Cell countsOrdered By: Alejo Salcido on 03-04-2022 Erythrocyte distribution width (RBC) [Entitic vol] 53.1 fL 35.1-43.9 [facility] Erythrocyte distribution width (RBC) [Ratio] 17.1 % 11.6-14.6 [facility] Immature granulocytes/100 WBC (Bld) 0.000 % 0.0-0.9 [facility] Comment on above: IG% - Immature Granu locytes (promyelocytes, myelocytes and metamyelocytes) > 1% indicates that a LEFT SHIFT is Present. MCH (RBC) [Entitic mass] 26.2 pg 27.0-32.0 [facility] Nucleated RBC/100 WBC (Bld) [Ratio] 0 % 0-5 [facility] MCHC Auto (RBC) [Mass/Vol]Or dered By: Alejo Salcido on 03-04-2022 MCHC (RBC) [Mass/Vol] 30.2 g/dL 32-36 [facility] No Panel InformationOrdered By: Alejo Salcido on 03-04-2022 Estimated GFR (MDRD) Amer 101 mL/min >60 [facility] Comment on above: GFR Calc Estimated GFR (MDRD) Non-Af Amer 83 mL/min >60 [facility] Comment on above: Non- GFR Calc Platelets bldOrdered By: Levi Salcido on 03-04-2022 Platelets (Bld) [#/Vol] 163 10*3/uL 150-450 [facility] Serum or plasma albumin yonatan urement (mass/volume)Ordered By: Alejo Salcido on 03-04-2022 Albumin [Mass/Vol] 2.7 g/dL 3.2-5.0 [facility] Serum or plasma albumin/glob ulin mass ratioOrdered By: Alejo Salcido on 03-04-2022 Albumin/Globulin [Mass ratio] 0.6 {ratio} 0.9-2.4 [facility] Serum or plasma calcium yonatan urement (mass/volume)Ordered By: Alejo Salcido on 03-04-2022 Calcium [Mass/Vol] 9.1 mg/dL 8.5-10.1 [facility] Serum or plasma creatinine m easurement (mass/volume)Ordered By: Alejo Salcido on 03-04-2022 Creatinine [Mass/Vol] 0.71 mg/dL 0.55-1.02 [facility] Comment on above: The validity of the calculated GFR & GFRAA in patients over 70 years has not been determined. Clinical correlation is essential. Serum or plasma urea nitroge n measurement (mass/volume)Ordered By: Alejo Salcido on 03-04-2022 Urea nitrogen [Mass/Vol] 13 mg/dL 7-18 [facility] Thin prep Papanicolaou smear with manual screeningOrdered By: Alejo Salcido on 03-04-2022 Thin prep Papanicolaou smear with manual screening 22 U/L 15-37 [facility] Thin prep Papanicolaou smear with manual screening 5 5-15 [facility] Culture, urineOrdered By: Angelito Reyna on 02-23-2022 Bacteria identified Cx Nom (U) Culture exhibits no growth. [facility] Bilirubin Test strip Ql (U)O rdered By: Reji Reyna on 02-21-2022 Bilirubin Ql (U) Negative Negative [facility] Ketones Test strip Ql (U)Ord ered By: Reji Reyna on 02-21-2022 Ketones Ql (U) 5 mg/dl Negative [facility] Nitrite Test strip Ql (U)Ord ered By: Reji Reyna on 02-21-2022 Nitrite Ql (U) Negative Negative [facility] Protein Test strip Ql (U)Ord ered By: Reji Reyna on 02-21-2022 Protein Ql (U) 30 mg/dl Negative [facility] Urine blood detectionOrdered By: Reji Reyna on 02-21-2022 RBC Ql (U) 250 /ul Negative [facility] Urine clarityOrdered By: Fredy Reyna on 02-21-2022 Clarity (U) Cloudy Clear [facility] Urine color determinationOrd ered By: Reji Reyna on 02-21-2022 Color (U) Starla Yellow [facility] Urine glucose detectionOrder ed By: Reji Reyna on 02-21-2022 Glucose Ql (U) Normal mg/dl Normal [facility] Urine leukocyte esterase det ection by dipstickOrdered By: Reji Reyna on 02-21-2022 Leukocyte esterase Test strip Ql (U) 25 /ul Negative [facility] Urine pHOrdered By: Deloris Reyna on 02-21-2022 pH (U) 6.0 [pH] 5.0 - 8.0 [facility] Urine specific gravity measu rementOrdered By: Reji Reyna on 02-21-2022 Specific gravity (U) [Rel density] 1.015 1.002-1.030 [facility] Urobilinogen Auto test strip Ql (U)Ordered By: Reji Reyna on 02-21-2022 Urobilinogen Ql (U) Normal mg/dl Normal [facility] Absolute lymphocyte countOrd ered By: Alejo Salcido on 02-04-2022 Lymphocytes Auto (Unsp spec) [#/Vol] 1.51 10*3/uL 0.83-4.51 [facility] Basophil percentageOrdered B y: Alejo Salcido on 02-04-2022 Basophils/100 WBC (Bld) 1.0 % 0-1 [facility] Bilirubin [Mass/Vol] 0.50 mg/dL 0.20-1.00 [facility] Comment on above: For patients on eltr ombopag therapy, use of Dimension Walker TBIL is not recommended. Chloride [Moles/Vol] 111 mmol/L 98-107 [facility] Eosinophils/100 WBC (Bld) 2.5 % 0-5 [facility] Glucose [Mass/Vol] 79 mg/dL 74-106 [facility] Neutrophils (Bld) [#/Vol] 2.9 10*3/uL 2.0-7.7 [facility] Neutrophils/100 WBC (Bld) 55.7 % 47-70 [facility] Potassium [Moles/Vol] 4.1 mmol/L 3.5-5.1 [facility] Protein [Mass/Vol] 7.2 g/dL 6.4-8.2 [facility] Sodium [Moles/Vol] 140 mmol/L 136-145 [facility] WBC (Bld) [#/Vol] 5.2 10*3/uL 4.4-11.0 [facility] Blood erythrocytes count (nu mber/volume)Ordered By: Alejo Salcido on 02-04-2022 RBC (Bld) [#/Vol] 3.06 10*6/uL 4.2-5.4 [facility] Blood hemoglobin measurement (mass/volume)Ordered By: Alejo Salcido on 02-04-2022 Hemoglobin (Bld) [Mass/Vol] 8.3 g/dL 12.0-15.0 [facility] Blood lymphocytes/100 leukoc ytesOrdered By: Alejo Salcido on 02-04-2022 Lymphocytes/100 WBC (Bld) 29.2 % 19-41 [facility] Blood monocytes/100 leukocyt esOrdered By: Alejo Salcido on 02-04-2022 Monocytes/100 WBC (Bld) 11.2 % 0-10 [facility] Blood platelet mean volumeOr dered By: Alejo Salcido on 02-04-2022 Platelet mean volume (Bld) [Entitic vol] 9.5 fL 6.2-12.0 [facility] Determination of erythrocyte mean corpuscular volume (MCV)Ordered By: Alejo Salcido on 02-04-2022 MCV (RBC) [Entitic vol] 87.3 fL 81-99 [facility] Hematocrit Auto (Bld) [Volum e fraction]Ordered By: Alejo Salcido on 02-04-2022 Hematocrit (Bld) [Volume fraction] 26.7 % 37-47 [facility] Laboratory - Chemistry and C hemistry - challengeOrdered By: Alejo Salcido on 02-04-2022 ALP [Catalytic activity/Vol] 87 U/L 45-117 [facility] ALT [Catalytic activity/Vol] 20 U/L 13-56 [facility] CO2 [Moles/Vol] 25.0 mmol/L 21.0-32.0 [facility] Globulin (S) [Mass/Vol] 4.5 g/dL 2.2-4.2 [facility] Urea nitrogen/Creatinine [Mass ratio] 20.9 mg/mg 10-20 [facility] Laboratory - Hematology and Cell countsOrdered By: Alejo Salcido on 02-04-2022 Erythrocyte distribution width (RBC) [Entitic vol] 54.0 fL 35.1-43.9 [facility] Erythrocyte distribution width (RBC) [Ratio] 17.1 % 11.6-14.6 [facility] Immature granulocytes/100 WBC (Bld) 0.400 % 0.0-0.9 [facility] Comment on above: IG% - Immature Granu locytes (promyelocytes, myelocytes and metamyelocytes) > 1% indicates that a LEFT SHIFT is Present. MCH (RBC) [Entitic mass] 27.1 pg 27.0-32.0 [facility] Nucleated RBC/100 WBC (Bld) [Ratio] 0 % 0-5 [facility] MCHC Auto (RBC) [Mass/Vol]Or dered By: Alejo Salcido on 02-04-2022 MCHC (RBC) [Mass/Vol] 31.1 g/dL 32-36 [facility] No Panel InformationOrdered By: Alejo Salcido on 02-04-2022 Estimated GFR (MDRD) Amer 107 mL/min >60 [facility] Comment on above: GFR Calc Estimated GFR (MDRD) Non-Af Amer 89 mL/min >60 [facility] Comment on above: Non- GFR Calc Platelets bldOrdered By: Levi Salcido on 02-04-2022 Platelets (Bld) [#/Vol] 155 10*3/uL 150-450 [facility] Serum or plasma albumin yonatan urement (mass/volume)Ordered By: Alejo Salcido on 02-04-2022 Albumin [Mass/Vol] 2.7 g/dL 3.2-5.0 [facility] Serum or plasma albumin/glob ulin mass ratioOrdered By: Alejo Salcido on 02-04-2022 Albumin/Globulin [Mass ratio] 0.6 {ratio} 0.9-2.4 [facility] Serum or plasma calcium yonatan urement (mass/volume)Ordered By: Alejo Salcido on 02-04-2022 Calcium [Mass/Vol] 8.9 mg/dL 8.5-10.1 [facility] Serum or plasma creatinine m easurement (mass/volume)Ordered By: Alejo Salcido on 02-04-2022 Creatinine [Mass/Vol] 0.67 mg/dL 0.55-1.02 [facility] Comment on above: The validity of the calculated GFR & GFRAA in patients over 70 years has not been determined. Clinical correlation is essential. Serum or plasma urea nitroge n measurement (mass/volume)Ordered By: Alejo Salcido on 02-04-2022 Urea nitrogen [Mass/Vol] 14 mg/dL 7-18 [facility] Thin prep Papanicolaou smear with manual screeningOrdered By: Alejo Salcido on 02-04-2022 Thin prep Papanicolaou smear with manual screening 20 U/L 15-37 [facility] Thin prep Papanicolaou smear with manual screening 4 5-15 [facility] Absolute lymphocyte countOrd ered By: Alejo Salcido on 01-17-2022 Lymphocytes Auto (Unsp spec) [#/Vol] 1.45 10*3/uL 0.83-4.51 [facility] Basophil percentageOrdered B y: Alejo Salcido on 01-17-2022 Basophils/100 WBC (Bld) 0.8 % 0-1 [facility] Eosinophils/100 WBC (Bld) 1.9 % 0-5 [facility] Neutrophils (Bld) [#/Vol] 3.0 10*3/uL 2.0-7.7 [facility] Neutrophils/100 WBC (Bld) 56.3 % 47-70 [facility] WBC (Bld) [#/Vol] 5.3 10*3/uL 4.4-11.0 [facility] Blood erythrocytes count (nu mber/volume)Ordered By: Alejo Salcido on 01-17-2022 RBC (Bld) [#/Vol] 2.79 10*6/uL 4.2-5.4 [facility] Blood hemoglobin measurement (mass/volume)Ordered By: Alejo Salcido on 01-17-2022 Hemoglobin (Bld) [Mass/Vol] 8.0 g/dL 12.0-15.0 [facility] Blood lymphocytes/100 leukoc ytesOrdered By: Alejo Salcido on 01-17-2022 Lymphocytes/100 WBC (Bld) 27.4 % 19-41 [facility] Blood monocytes/100 leukocyt esOrdered By: Alejo Salcido on 01-17-2022 Monocytes/100 WBC (Bld) 13.4 % 0-10 [facility] Blood platelet mean volumeOr dered By: Alejo Salcido on 01-17-2022 Platelet mean volume (Bld) [Entitic vol] 9.9 fL 6.2-12.0 [facility] Determination of erythrocyte mean corpuscular volume (MCV)Ordered By: Alejo Salcido on 01-17-2022 MCV (RBC) [Entitic vol] 88.9 fL 81-99 [facility] Hematocrit Auto (Bld) [Volum e fraction]Ordered By: Alejo Salcido on 01-17-2022 Hematocrit (Bld) [Volume fraction] 24.8 % 37-47 [facility] Laboratory - Hematology and Cell countsOrdered By: Alejo Salcido on 01-17-2022 Erythrocyte distribution width (RBC) [Entitic vol] 58.2 fL 35.1-43.9 [facility] Erythrocyte distribution width (RBC) [Ratio] 18.2 % 11.6-14.6 [facility] Immature granulocytes/100 WBC (Bld) 0.200 % 0.0-0.9 [facility] Comment on above: IG% - Immature Granu locytes (promyelocytes, myelocytes and metamyelocytes) > 1% indicates that a LEFT SHIFT is Present. MCH (RBC) [Entitic mass] 28.7 pg 27.0-32.0 [facility] Nucleated RBC/100 WBC (Bld) [Ratio] 0 % 0-5 [facility] MCHC Auto (RBC) [Mass/Vol]Or dered By: Alejo Salcido on 01-17-2022 MCHC (RBC) [Mass/Vol] 32.3 g/dL 32-36 [facility] Platelets bldOrdered By: Levi Salcido on 01-17-2022 Platelets (Bld) [#/Vol] 169 10*3/uL 150-450 [facility] Absolute lymphocyte countOrd ered By: Alejo Salcido on 01-03-2022 Lymphocytes Auto (Unsp spec) [#/Vol] 1.25 10*3/uL 0.83-4.51 [facility] Basophil percentageOrdered B y: Alejo Salcido on 01-03-2022 Basophils/100 WBC (Bld) 0.5 % 0-1 [facility] Eosinophils/100 WBC (Bld) 2.1 % 0-5 [facility] Neutrophils (Bld) [#/Vol] 2.5 10*3/uL 2.0-7.7 [facility] Neutrophils/100 WBC (Bld) 57.2 % 47-70 [facility] WBC (Bld) [#/Vol] 4.4 10*3/uL 4.4-11.0 [facility] Blood erythrocytes count (nu mber/volume)Ordered By: Alejo Salcido on 01-03-2022 RBC (Bld) [#/Vol] 2.97 10*6/uL 4.2-5.4 [facility] Blood hemoglobin measurement (mass/volume)Ordered By: Alejo Salcido on 01-03-2022 Hemoglobin (Bld) [Mass/Vol] 8.3 g/dL 12.0-15.0 [facility] Blood lymphocytes/100 leukoc ytesOrdered By: Alejo Salcido on 01-03-2022 Lymphocytes/100 WBC (Bld) 28.6 % 19-41 [facility] Blood monocytes/100 leukocyt esOrdered By: Alejo Salcido on 01-03-2022 Monocytes/100 WBC (Bld) 11.4 % 0-10 [facility] Blood platelet mean volumeOr dered By: Alejo Salcido on 01-03-2022 Platelet mean volume (Bld) [Entitic vol] 10.0 fL 6.2-12.0 [facility] Determination of erythrocyte mean corpuscular volume (MCV)Ordered By: Alejo Salcido on 01-03-2022 MCV (RBC) [Entitic vol] 86.5 fL 81-99 [facility] Hematocrit Auto (Bld) [Volum e fraction]Ordered By: Alejo Salcido on 01-03-2022 Hematocrit (Bld) [Volume fraction] 25.7 % 37-47 [facility] Laboratory - Hematology and Cell countsOrdered By: Alejo Salcido on 01-03-2022 Erythrocyte distribution width (RBC) [Entitic vol] 59.0 fL 35.1-43.9 [facility] Erythrocyte distribution width (RBC) [Ratio] 18.8 % 11.6-14.6 [facility] Immature granulocytes/100 WBC (Bld) 0.200 % 0.0-0.9 [facility] Comment on above: IG% - Immature Granu locytes (promyelocytes, myelocytes and metamyelocytes) > 1% indicates that a LEFT SHIFT is Present. MCH (RBC) [Entitic mass] 27.9 pg 27.0-32.0 [facility] Nucleated RBC/100 WBC (Bld) [Ratio] 0 % 0-5 [facility] MCHC Auto (RBC) [Mass/Vol]Or dered By: Alejo Salcido on 01-03-2022 MCHC (RBC) [Mass/Vol] 32.3 g/dL 32-36 [facility] Platelets bldOrdered By: Levi Salcido on 01-03-2022 Platelets (Bld) [#/Vol] 154 10*3/uL 150-450 [facility] CNOVon 01-02-2022 CNOV Office Visit (CRISTINE ) CHRISTIAN LANDRUM ([id number]) 1935 F Date Time Provider Department 01/02/22 [...] stool Pain: no Abnormal Vaginal Discharge: no [employer]ATOR HISTORY: Last Pap: Date:04/18/20 NIL; Last [...] sooner as needed Referring Provider: GALINA IRAHETA [[id number]] Allergies As of Date: 01/02/2022 Noted Allergy [...] Vaginal atrophy [N95.2] Order(s):UA DIP, URINE (POC) [6400923] Order #: [id number]. #:[id number] estr (more content not included)... Normal [facility] UA DIP, URINE (POC)on 2021 BILIRUBIN UA (POCT) Negative Negative [facility] CLARITY UA (POCT) Clear [facility] COLOR UA (POCT) Yellow [facility] GLUCOSE UA (POCT) Negative Negative mg/dL [facility] HEMOGLOBIN/BLOOD UA (POCT) Negative Negative [facility] KETONE UA (POCT) Negative Negative mg/dL [facility] LEUKOCYTES UA (POCT) Negative Negative [facility] NITRITE UA (POCT) Negative Negative [facility] PH UA (POCT) 6.5 4.5 - 8.0 [facility] Protein Ql (U) Negative Negative mg/dL [facility] SPECIFIC GRAVITY UA (POCT) 1.010 1.005 - 1.030 [facility] UROBILINOGEN UA (POCT) 0.2 E.U./dL Winifred l E.U./dL [facility] Absolute lymphocyte countOrd ered By: Alejo Salcido on 12-31-2021 Lymphocytes Auto (Unsp spec) [#/Vol] 1.26 10*3/uL 0.83-4.51 [facility] Basophil percentageOrdered B y: Alejo Salcido on 12-31-2021 Basophils/100 WBC (Bld) 0.3 % 0-1 [facility] Bilirubin [Mass/Vol] 0.50 mg/dL 0.20-1.00 [facility] Comment on above: For patients on eltr ombopag therapy, use of Dimension Walker TBIL is not recommended. Chloride [Moles/Vol] 113 mmol/L 98-107 [facility] Eosinophils/100 WBC (Bld) 1.6 % 0-5 [facility] Glucose [Mass/Vol] 93 mg/dL 74-106 [facility] Neutrophils (Bld) [#/Vol] 1.8 10*3/uL 2.0-7.7 [facility] Neutrophils/100 WBC (Bld) 49.5 % 47-70 [facility] Potassium [Moles/Vol] 4.3 mmol/L 3.5-5.1 [facility] Protein [Mass/Vol] 6.2 g/dL 6.4-8.2 [facility] Sodium [Moles/Vol] 144 mmol/L 136-145 [facility] WBC (Bld) [#/Vol] 3.6 10*3/uL 4.4-11.0 [facility] Blood erythrocytes count (nu mber/volume)Ordered By: Alejo Salcido on 12-31-2021 RBC (Bld) [#/Vol] 2.73 10*6/uL 4.2-5.4 [facility] Blood hemoglobin measurement (mass/volume)Ordered By: Alejo Salcido on 12-31-2021 Hemoglobin (Bld) [Mass/Vol] 7.5 g/dL 12.0-15.0 [facility] Blood lymphocytes/100 leukoc ytesOrdered By: Alejo Salcido on 12-31-2021 Lymphocytes/100 WBC (Bld) 34.6 % 19-41 [facility] Blood monocytes/100 leukocyt esOrdered By: Alejo Salcido on 12-31-2021 Monocytes/100 WBC (Bld) 13.7 % 0-10 [facility] Blood platelet mean volumeOr dered By: Alejo Salcido on 12-31-2021 Platelet mean volume (Bld) [Entitic vol] 10.4 fL 6.2-12.0 [facility] Determination of erythrocyte mean corpuscular volume (MCV)Ordered By: Alejo Salcido on 12-31-2021 MCV (RBC) [Entitic vol] 88.3 fL 81-99 [facility] Hematocrit Auto (Bld) [Volum e fraction]Ordered By: Alejo Salcido on 12-31-2021 Hematocrit (Bld) [Volume fraction] 24.1 % 37-47 [facility] Laboratory - Chemistry and C hemistry - challengeOrdered By: Alejo Salcido on 12-31-2021 ALP [Catalytic activity/Vol] 75 U/L 45-117 [facility] ALT [Catalytic activity/Vol] 25 U/L 13-56 [facility] CO2 [Moles/Vol] 22.0 mmol/L 21.0-32.0 [facility] Globulin (S) [Mass/Vol] 3.9 g/dL 2.2-4.2 [facility] Urea nitrogen/Creatinine [Mass ratio] 13.7 mg/mg 10-20 [facility] Laboratory - Hematology and Cell countsOrdered By: Alejo Salcido on 12-31-2021 Erythrocyte distribution width (RBC) [Entitic vol] 61.0 fL 35.1-43.9 [facility] Erythrocyte distribution width (RBC) [Ratio] 19.1 % 11.6-14.6 [facility] Immature granulocytes/100 WBC (Bld) 0.300 % 0.0-0.9 [facility] Comment on above: IG% - Immature Granu locytes (promyelocytes, myelocytes and metamyelocytes) > 1% indicates that a LEFT SHIFT is Present. MCH (RBC) [Entitic mass] 27.5 pg 27.0-32.0 [facility] Nucleated RBC/100 WBC (Bld) [Ratio] 0 % 0-5 [facility] MCHC Auto (RBC) [Mass/Vol]Or dered By: Alejo Salcido on 12-31-2021 MCHC (RBC) [Mass/Vol] 31.1 g/dL 32-36 [facility] No Panel InformationOrdered By: Alejo Salcido on 12-31-2021 Estimated GFR (MDRD) Amer 98 mL/min >60 [facility] Estimated GFR (MDRD) Non-Af Amer 81 mL/min >60 [facility] Platelets bldOrdered By: Levi Salcido on 12-31-2021 Platelets (Bld) [#/Vol] 125 10*3/uL 150-450 [facility] Serum or plasma albumin yonatan urement (mass/volume)Ordered By: Alejo Salcido on 12-31-2021 Albumin [Mass/Vol] 2.3 g/dL 3.2-5.0 [facility] Serum or plasma albumin/glob ulin mass ratioOrdered By: Alejo Salcido on 12-31-2021 Albumin/Globulin [Mass ratio] 0.6 {ratio} 0.9-2.4 [facility] Serum or plasma calcium yonatan urement (mass/volume)Ordered By: Alejo Salcido on 12-31-2021 Calcium [Mass/Vol] 8.4 mg/dL 8.5-10.1 [facility] Serum or plasma creatinine m easurement (mass/volume)Ordered By: Alejo Salcido on 12-31-2021 Creatinine [Mass/Vol] 0.73 mg/dL 0.55-1.02 [facility] Comment on above: The validity of the calculated GFR & GFRAA in patients over 70 years has not been determined. Clinical correlation is essential. Serum or plasma urea nitroge n measurement (mass/volume)Ordered By: Alejo Salcido on 12-31-2021 Urea nitrogen [Mass/Vol] 10 mg/dL 7-18 [facility] Thin prep Papanicolaou smear with manual screeningOrdered By: Alejo Salcido on 12-31-2021 Thin prep Papanicolaou smear with manual screening 35 U/L 15-37 [facility] Thin prep Papanicolaou smear with manual screening 9 5-15 [facility] Absolute lymphocyte countOrd ered By: Selma Durham on 12-28-2021 Lymphocytes Auto (Unsp spec) [#/Vol] 0.99 10*3/uL 0.83-4.51 [facility] Basophil percentageOrdered B y: Selma Durham on 12-28-2021 Basophils/100 WBC (Bld) 0.3 % 0-1 [facility] Eosinophils/100 WBC (Bld) 1.0 % 0-5 [facility] Neutrophils (Bld) [#/Vol] 1.5 10*3/uL 2.0-7.7 [facility] Neutrophils/100 WBC (Bld) 51.6 % 47-70 [facility] WBC (Bld) [#/Vol] 2.9 10*3/uL 4.4-11.0 [facility] Blood erythrocytes count (nu mber/volume)Ordered By: Selma Durham on 12-28-2021 RBC (Bld) [#/Vol] 2.60 10*6/uL 4.2-5.4 [facility] Blood hemoglobin measurement (mass/volume)Ordered By: Selma Durham on 12-28-2021 Hemoglobin (Bld) [Mass/Vol] 7.1 g/dL 12.0-15.0 [facility] Blood lymphocytes/100 leukoc ytesOrdered By: Selma Durham on 12-28-2021 Lymphocytes/100 WBC (Bld) 33.8 % 19-41 [facility] Blood monocytes/100 leukocyt esOrdered By: Selma Durham on 12-28-2021 Monocytes/100 WBC (Bld) 13.0 % 0-10 [facility] Blood platelet mean volumeOr dered By: Selma Durham on 12-28-2021 Platelet mean volume (Bld) [Entitic vol] 10.2 fL 6.2-12.0 [facility] Determination of erythrocyte mean corpuscular volume (MCV)Ordered By: Selma Durham on 12-28-2021 MCV (RBC) [Entitic vol] 86.5 fL 81-99 [facility] Hematocrit Auto (Bld) [Volum e fraction]Ordered By: Selma Durham on 12-28-2021 Hematocrit (Bld) [Volume fraction] 22.5 % 37-47 [facility] INR in Blood by Coagulation assayOrdered By: Selma Durham on 12-28-2021 INR Coag (Bld) [Relative time] 2.6 {INR} [facility] Laboratory - CoagulationOrde red By: Selma Durham on 12-28-2021 PT Coag (PPP) [Time] 27.1 s 11.7-14.9 [facility] Laboratory - Hematology and Cell countsOrdered By: Selma Durham on 12-28-2021 Erythrocyte distribution width (RBC) [Entitic vol] 63.3 fL 35.1-43.9 [facility] Erythrocyte distribution width (RBC) [Ratio] 19.9 % 11.6-14.6 [facility] Immature granulocytes/100 WBC (Bld) 0.300 % 0.0-0.9 [facility] Comment on above: IG% - Immature Granu locytes (promyelocytes, myelocytes and metamyelocytes) > 1% indicates that a LEFT SHIFT is Present. MCH (RBC) [Entitic mass] 27.3 pg 27.0-32.0 [facility] Nucleated RBC/100 WBC (Bld) [Ratio] 0 % 0-5 [facility] MCHC Auto (RBC) [Mass/Vol]Or dered By: Selma Durham on 12-28-2021 MCHC (RBC) [Mass/Vol] 31.6 g/dL 32-36 [facility] Platelets bldOrdered By: Hafsa tasia Marva on 12-28-2021 Platelets (Bld) [#/Vol] 108 10*3/uL 150-450 [facility] Absolute lymphocyte countOrd ered By: Alejo Salcido on 12-27-2021 Lymphocytes Auto (Unsp spec) [#/Vol] 1.15 10*3/uL 0.83-4.51 [facility] Basophil percentageOrdered B y: Alejo Salcido on 12-27-2021 Basophils/100 WBC (Bld) 0.0 % 0-1 [facility] Eosinophils/100 WBC (Bld) 1.2 % 0-5 [facility] Neutrophils (Bld) [#/Vol] 0.8 10*3/uL 2.0-7.7 [facility] Neutrophils/100 WBC (Bld) 33.7 % 47-70 [facility] WBC (Bld) [#/Vol] 2.4 10*3/uL 4.4-11.0 [facility] Blood erythrocytes count (nu mber/volume)Ordered By: Alejo Salcido on 12-27-2021 RBC (Bld) [#/Vol] 2.55 10*6/uL 4.2-5.4 [facility] Blood hemoglobin measurement (mass/volume)Ordered By: Alejo Salcido on 12-27-2021 Hemoglobin (Bld) [Mass/Vol] 6.7 g/dL 12.0-15.0 [facility] Blood lymphocytes/100 leukoc ytesOrdered By: Alejo Salcido on 12-27-2021 Lymphocytes/100 WBC (Bld) 47.1 % 19-41 [facility] Blood manual differential co mment interpretation (narrative result)Ordered By: Alejo Salcido on 12-27-2021 Manual differential comment [place] (Bld) [Interp] See comment [facility] Comment on above: [employer] Blood monocytes/100 leukocyt esOrdered By: Alejo Salcido on 12-27-2021 Monocytes/100 WBC (Bld) 18.0 % 0-10 [facility] Blood platelet adequacy dete ction by light microscopyOrdered By: Alejo Salcido on 12-27-2021 Platelets LM Ql (Bld) SLT DEC ADEQ [facility] Blood platelet mean volumeOr dered By: Alejo Salcido on 12-27-2021 Platelet mean volume (Bld) [Entitic vol] 10.5 fL 6.2-12.0 [facility] Determination of erythrocyte mean corpuscular volume (MCV)Ordered By: Alejo Salcido on 12-27-2021 MCV (RBC) [Entitic vol] 87.1 fL 81-99 [facility] Hematocrit Auto (Bld) [Volum e fraction]Ordered By: Alejo Salcido on 12-27-2021 Hematocrit (Bld) [Volume fraction] 22.2 % 37-47 [facility] Hypochromatic red blood cell detectionOrdered By: Alejo Salcido on 12-27-2021 Hypochromia Ql (Bld) 2+ [facility] INR in Blood by Coagulation assayOrdered By: Alejo Salcido on 12-27-2021 INR Coag (Bld) [Relative time] 3.0 {INR} [facility] Laboratory - CoagulationOrde red By: Alejo Salcido on 12-27-2021 PT Coag (PPP) [Time] 30.9 s 11.7-14.9 [facility] Laboratory - Hematology and Cell countsOrdered By: Alejo Salcido on 12-27-2021 Anisocytosis Ql (Bld) 1+ [facility] Erythrocyte distribution width (RBC) [Entitic vol] 63.0 fL 35.1-43.9 [facility] Erythrocyte distribution width (RBC) [Ratio] 19.7 % 11.6-14.6 [facility] Immature granulocytes/100 WBC (Bld) 0.000 % 0.0-0.9 [facility] Comment on above: IG% - Immature Granu locytes (promyelocytes, myelocytes and metamyelocytes) > 1% indicates that a LEFT SHIFT is Present. MCH (RBC) [Entitic mass] 26.3 pg 27.0-32.0 [facility] Nucleated RBC/100 WBC (Bld) [Ratio] 0 % 0-5 [facility] MCHC Auto (RBC) [Mass/Vol]Or dered By: Alejo Salcido on 12-27-2021 MCHC (RBC) [Mass/Vol] 30.2 g/dL 32-36 [facility] Platelets bldOrdered By: Levi Salcido on 12-27-2021 Platelets (Bld) [#/Vol] 104 10*3/uL 150-450 [facility] Absolute lymphocyte countOrd ered By: Alejo Salcido on 12-22-2021 Lymphocytes Auto (Unsp spec) [#/Vol] 0.98 10*3/uL 0.83-4.51 [facility] Basophil percentageOrdered B y: Alejo Salcido on 12-22-2021 Basophils/100 WBC (Bld) 0.3 % 0-1 [facility] Chloride [Moles/Vol] 110 mmol/L 98-107 [facility] Eosinophils/100 WBC (Bld) 0.3 % 0-5 [facility] Glucose [Mass/Vol] 111 mg/dL 74-106 [facility] Comment on above: Fasting Glucose resu lt from 100 to 125 mg/dL suggests IMPAIRED HOMEOSTASIS per A.D.A. criteria. Neutrophils (Bld) [#/Vol] 2.1 10*3/uL 2.0-7.7 [facility] Neutrophils/100 WBC (Bld) 54.4 % 47-70 [facility] Potassium [Moles/Vol] 3.8 mmol/L 3.5-5.1 [facility] Sodium [Moles/Vol] 140 mmol/L 136-145 [facility] WBC (Bld) [#/Vol] 3.9 10*3/uL 4.4-11.0 [facility] Blood erythrocytes count (nu mber/volume)Ordered By: Alejo Salciod on 12-22-2021 RBC (Bld) [#/Vol] 2.80 10*6/uL 4.2-5.4 [facility] Blood hemoglobin measurement (mass/volume)Ordered By: Alejo Salcido on 12-22-2021 Hemoglobin (Bld) [Mass/Vol] 7.5 g/dL 12.0-15.0 [facility] Blood lymphocytes/100 leukoc ytesOrdered By: Alejo Salcido on 12-22-2021 Lymphocytes/100 WBC (Bld) 25.3 % 19-41 [facility] Blood monocytes/100 leukocyt esOrdered By: Alejo Salcido on 12-22-2021 Monocytes/100 WBC (Bld) 19.4 % 0-10 [facility] Blood platelet mean volumeOr dered By: Alejo Salcido on 12-22-2021 Platelet mean volume (Bld) [Entitic vol] 10.4 fL 6.2-12.0 [facility] Determination of erythrocyte mean corpuscular volume (MCV)Ordered By: Alejo Salcido on 12-22-2021 MCV (RBC) [Entitic vol] 85.4 fL 81-99 [facility] Hematocrit Auto (Bld) [Volum e fraction]Ordered By: Alejo Salcido on 12-22-2021 Hematocrit (Bld) [Volume fraction] 23.9 % 37-47 [facility] Laboratory - Chemistry and C hemistry - challengeOrdered By: Alejo Salcido on 12-22-2021 CO2 [Moles/Vol] 24.0 mmol/L 21.0-32.0 [facility] Urea nitrogen/Creatinine [Mass ratio] 19.0 mg/mg 10-20 [facility] Laboratory - Hematology and Cell countsOrdered By: Alejo Salcido on 12-22-2021 Erythrocyte distribution width (RBC) [Entitic vol] 61.6 fL 35.1-43.9 [facility] Erythrocyte distribution width (RBC) [Ratio] 19.5 % 11.6-14.6 [facility] Immature granulocytes/100 WBC (Bld) 0.300 % 0.0-0.9 [facility] Comment on above: IG% - Immature Granu locytes (promyelocytes, myelocytes and metamyelocytes) > 1% indicates that a LEFT SHIFT is Present. MCH (RBC) [Entitic mass] 26.8 pg 27.0-32.0 [facility] Nucleated RBC/100 WBC (Bld) [Ratio] 0 % 0-5 [facility] MCHC Auto (RBC) [Mass/Vol]Or dered By: Alejo Salcido on 12-22-2021 MCHC (RBC) [Mass/Vol] 31.4 g/dL 32-36 [facility] No Panel InformationOrdered By: Alejo Salcido on 12-22-2021 Estimated GFR (MDRD) Amer 72 mL/min >60 [facility] Comment on above: GFR Calc Estimated GFR (MDRD) Non-Af Amer 60 mL/min >60 [facility] Comment on above: Non- GFR Calc Platelets bldOrdered By: Levi Salcido on 12-22-2021 Platelets (Bld) [#/Vol] 136 10*3/uL 150-450 [facility] Serum or plasma calcium yonatan urement (mass/volume)Ordered By: Alejo Salcido on 12-22-2021 Calcium [Mass/Vol] 8.2 mg/dL 8.5-10.1 [facility] Serum or plasma creatinine m easurement (mass/volume)Ordered By: Alejo Salcido on 12-22-2021 Creatinine [Mass/Vol] 0.95 mg/dL 0.55-1.02 [facility] Comment on above: The validity of the calculated GFR & GFRAA in patients over 70 years has not been determined. Clinical correlation is essential. Serum or plasma urea nitroge n measurement (mass/volume)Ordered By: Alejo Salcido on 12-22-2021 Urea nitrogen [Mass/Vol] 18 mg/dL 7-18 [facility] Thin prep Papanicolaou smear with manual screeningOrdered By: Alejo Salcido on 12-22-2021 Thin prep Papanicolaou smear with manual screening 6 5-15 [facility] Laboratory - CoagulationOrde red By: Alejo Salcido on 12-17-2021 INR Coag (Bld) [Relative time] 2.7 {INR} [facility] Comment on above: Critical Value > 4.0 Whole blood prothrombin time Ordered By: Alejo Salcido on 12-17-2021 PT Coag (Bld) [Time] 31.0 s 11.7-14.9 [facility] Laboratory - CoagulationOrde red By: Alejo Salcido on 12-10-2021 INR Coag (Bld) [Relative time] 2.4 {INR} [facility] Comment on above: Critical Value > 4.0 Whole blood prothrombin time Ordered By: Alejo Salcido on 12-10-2021 PT Coag (Bld) [Time] 28.1 s 11.7-14.9 [facility] Absolute lymphocyte countOrd ered By: Alejo Salcido on 12-03-2021 Lymphocytes Auto (Unsp spec) [#/Vol] 1.47 10*3/uL 0.83-4.51 [facility] Basophil percentageOrdered B y: Alejo Salcido on 12-03-2021 Basophils/100 WBC (Bld) 0.8 % 0-1 [facility] Bilirubin [Mass/Vol] 0.40 mg/dL 0.20-1.00 [facility] Comment on above: For patients on eltr ombopag therapy, use of Dimension Walker TBIL is not recommended. Chloride [Moles/Vol] 113 mmol/L 98-107 [facility] Eosinophils/100 WBC (Bld) 2.9 % 0-5 [facility] Glucose [Mass/Vol] 84 mg/dL 74-106 [facility] Neutrophils (Bld) [#/Vol] 2.5 10*3/uL 2.0-7.7 [facility] Neutrophils/100 WBC (Bld) 51.5 % 47-70 [facility] Potassium [Moles/Vol] 4.0 mmol/L 3.5-5.1 [facility] Protein [Mass/Vol] 7.4 g/dL 6.4-8.2 [facility] Sodium [Moles/Vol] 144 mmol/L 136-145 [facility] WBC (Bld) [#/Vol] 4.9 10*3/uL 4.4-11.0 [facility] Blood erythrocytes count (nu mber/volume)Ordered By: Alejo Salcido on 12-03-2021 RBC (Bld) [#/Vol] 3.31 10*6/uL 4.2-5.4 [facility] Blood hemoglobin measurement (mass/volume)Ordered By: Alejo Salcido on 12-03-2021 Hemoglobin (Bld) [Mass/Vol] 8.6 g/dL 12.0-15.0 [facility] Blood lymphocytes/100 leukoc ytesOrdered By: Alejo Salcido on 12-03-2021 Lymphocytes/100 WBC (Bld) 29.9 % 19-41 [facility] Blood monocytes/100 leukocyt esOrdered By: Alejo Salcido on 12-03-2021 Monocytes/100 WBC (Bld) 14.7 % 0-10 [facility] Blood platelet mean volumeOr dered By: Alejo Salcido on 12-03-2021 Platelet mean volume (Bld) [Entitic vol] 10.1 fL 6.2-12.0 [facility] Determination of erythrocyte mean corpuscular volume (MCV)Ordered By: Alejo Salcido on 12-03-2021 MCV (RBC) [Entitic vol] 87.9 fL 81-99 [facility] Hematocrit Auto (Bld) [Volum e fraction]Ordered By: Alejo Salcido on 12-03-2021 Hematocrit (Bld) [Volume fraction] 29.1 % 37-47 [facility] INR in Blood by Coagulation assayOrdered By: Alejo Salcido on 12-03-2021 INR Coag (Bld) [Relative time] 2.4 {INR} [facility] Laboratory - Chemistry and C hemistry - challengeOrdered By: Alejo Salcido on 12-03-2021 ALP [Catalytic activity/Vol] 85 U/L 45-117 [facility] ALT [Catalytic activity/Vol] 22 U/L 13-56 [facility] CO2 [Moles/Vol] 25.0 mmol/L 21.0-32.0 [facility] Globulin (S) [Mass/Vol] 4.8 g/dL 2.2-4.2 [facility] Urea nitrogen/Creatinine [Mass ratio] 20.7 mg/mg 10-20 [facility] Laboratory - CoagulationOrde red By: Alejo Salcido on 12-03-2021 PT Coag (PPP) [Time] 25.8 s 11.7-14.9 [facility] Laboratory - Hematology and Cell countsOrdered By: Alejo Salcido on 12-03-2021 Erythrocyte distribution width (RBC) [Entitic vol] 62.5 fL 35.1-43.9 [facility] Erythrocyte distribution width (RBC) [Ratio] 19.6 % 11.6-14.6 [facility] Immature granulocytes/100 WBC (Bld) 0.200 % 0.0-0.9 [facility] Comment on above: IG% - Immature Granu locytes (promyelocytes, myelocytes and metamyelocytes) > 1% indicates that a LEFT SHIFT is Present. MCH (RBC) [Entitic mass] 26.0 pg 27.0-32.0 [facility] Nucleated RBC/100 WBC (Bld) [Ratio] 0 % 0-5 [facility] MCHC Auto (RBC) [Mass/Vol]Or dered By: Alejo Salcido on 12-03-2021 MCHC (RBC) [Mass/Vol] 29.6 g/dL 32-36 [facility] No Panel InformationOrdered By: Alejo Salcido on 12-03-2021 Estimated GFR (MDRD) Amer 106 mL/min >60 [facility] Comment on above: GFR Calc Estimated GFR (MDRD) Non-Af Amer 88 mL/min >60 [facility] Comment on above: Non- GFR Calc Platelets bldOrdered By: Levi Salcido on 12-03-2021 Platelets (Bld) [#/Vol] 173 10*3/uL 150-450 [facility] Serum or plasma albumin yonatan urement (mass/volume)Ordered By: Alejo Salcido on 12-03-2021 Albumin [Mass/Vol] 2.6 g/dL 3.2-5.0 [facility] Serum or plasma albumin/glob ulin mass ratioOrdered By: Alejo Salcido on 12-03-2021 Albumin/Globulin [Mass ratio] 0.5 {ratio} 0.9-2.4 [facility] Serum or plasma calcium yonatan urement (mass/volume)Ordered By: Alejo Salcido on 12-03-2021 Calcium [Mass/Vol] 9.3 mg/dL 8.5-10.1 [facility] Serum or plasma creatinine m easurement (mass/volume)Ordered By: Alejo Salcido on 12-03-2021 Creatinine [Mass/Vol] 0.68 mg/dL 0.55-1.02 [facility] Comment on above: The validity of the calculated GFR & GFRAA in patients over 70 years has not been determined. Clinical correlation is essential. Serum or plasma urea nitroge n measurement (mass/volume)Ordered By: Alejo Salcido on 12-03-2021 Urea nitrogen [Mass/Vol] 14 mg/dL 7-18 [facility] Thin prep Papanicolaou smear with manual screeningOrdered By: Alejo Salcido on 12-03-2021 Thin prep Papanicolaou smear with manual screening 24 U/L 15-37 [facility] Thin prep Papanicolaou smear with manual screening 6 5-15 [facility] Laboratory - Coagulationon 0 11-26-2021 INR Coag (Bld) [Relative time] 1.1 {INR} [facility] Work Phone: Comment on above: Critical Value > 4.0 Whole blood prothrombin time on 11-26-2021 PT Coag (Bld) [Time] 13.7 s 11.7-14.9 [facility] Work Phone: Absolute lymphocyte counton 11-20-2021 Lymphocytes Auto (Unsp spec) [#/Vol] 1.35 10*3/uL 0.83-4.51 [facility] Work Phone: Basophil percentageon 2021 Basophils/100 WBC (Bld) 0.8 % 0-1 [facility] Work Phone: Eosinophils/100 WBC (Bld) 1.7 % 0-5 [facility] Work Phone: Neutrophils (Bld) [#/Vol] 3.1 10*3/uL 2.0-7.7 [facility] Work Phone: Neutrophils/100 WBC (Bld) 59.8 % 47-70 [facility] Work Phone: WBC (Bld) [#/Vol] 5.2 10*3/uL 4.4-11.0 [facility] Work Phone: Blood erythrocytes count (nu mber/volume)on 11-20-2021 RBC (Bld) [#/Vol] 3.20 10*6/uL 4.2-5.4 [facility] Work Phone: Blood hemoglobin measurement (mass/volume)on 11-20-2021 Hemoglobin (Bld) [Mass/Vol] 8.5 g/dL 12.0-15.0 [facility] Work Phone: Blood lymphocytes/100 leukoc yteson 11-20-2021 Lymphocytes/100 WBC (Bld) 26.0 % 19-41 [facility] Work Phone: Blood monocytes/100 leukocyt eson 11-20-2021 Monocytes/100 WBC (Bld) 11.5 % 0-10 [facility] Work Phone: Blood platelet mean volumeon 11-20-2021 Platelet mean volume (Bld) [Entitic vol] 9.8 fL 6.2-12.0 [facility] Work Phone: Determination of erythrocyte mean corpuscular volume (MCV)on 11-20-2021 MCV (RBC) [Entitic vol] 88.1 fL 81-99 [facility] Work Phone: Hematocrit Auto (Bld) [Volum e fraction]on 11-20-2021 Hematocrit (Bld) [Volume fraction] 28.2 % 37-47 [facility] Work Phone: Laboratory - Hematology and Cell countson 11-20-2021 Erythrocyte distribution width (RBC) [Entitic vol] 63.0 fL 35.1-43.9 [facility] Work Phone: Erythrocyte distribution width (RBC) [Ratio] 19.5 % 11.6-14.6 [facility] Work Phone: Immature granulocytes/100 WBC (Bld) 0.200 % 0.0-0.9 [facility] Work Phone: Comment on above: IG% - Immature Granu locytes (promyelocytes, myelocytes and metamyelocytes) > 1% indicates that a LEFT SHIFT is Present. MCH (RBC) [Entitic mass] 26.6 pg 27.0-32.0 [facility] Work Phone: Nucleated RBC/100 WBC (Bld) [Ratio] 0 % 0-5 [facility] Work Phone: MCHC Auto (RBC) [Mass/Vol]on 11-20-2021 MCHC (RBC) [Mass/Vol] 30.1 g/dL 32-36 [facility] Work Phone: Platelets bldon 11-20-2021 Platelets (Bld) [#/Vol] 184 10*3/uL 150-450 [facility] Work Phone: Absolute lymphocyte counton 10-29-2021 Lymphocytes Auto (Unsp spec) [#/Vol] 1.41 10*3/uL 0.83-4.51 [facility] Work Phone: Basophil percentageon 2021 Basophils/100 WBC (Bld) 0.6 % 0-1 [facility] Work Phone: Bilirubin [Mass/Vol] 0.50 mg/dL 0.20-1.00 [facility] Work Phone: Comment on above: For patients on eltr ombopag therapy, use of Dimension Walker TBIL is not recommended. Chloride [Moles/Vol] 112 mmol/L 98-107 [facility] Work Phone: Eosinophils/100 WBC (Bld) 2.5 % 0-5 [facility] Work Phone: Glucose [Mass/Vol] 82 mg/dL 74-106 [facility] Work Phone: Neutrophils (Bld) [#/Vol] 2.5 10*3/uL 2.0-7.7 [facility] Work Phone: Neutrophils/100 WBC (Bld) 52.7 % 47-70 [facility] Work Phone: Potassium [Moles/Vol] 3.9 mmol/L 3.5-5.1 [facility] Work Phone: Protein [Mass/Vol] 7.0 g/dL 6.4-8.2 [facility] Work Phone: Sodium [Moles/Vol] 144 mmol/L 136-145 [facility] Work Phone: WBC (Bld) [#/Vol] 4.8 10*3/uL 4.4-11.0 [facility] Work Phone: Blood erythrocytes count (nu mber/volume)on 08-15-2022 RBC (Bld) [#/Vol] 3.13 10*6/uL 4.2-5.4 [facility] Work Phone: [phone] Blood hemoglobin measurement (mass/volume)on 10-29-2021 Hemoglobin (Bld) [Mass/Vol] 8.5 g/dL 12.0-15.0 [facility] Work Phone: Blood lymphocytes/100 leukoc yteson 10-29-2021 Lymphocytes/100 WBC (Bld) 29.7 % 19-41 [facility] Work Phone: Blood monocytes/100 leukocyt eson 10-29-2021 Monocytes/100 WBC (Bld) 14.5 % 0-10 [facility] Work Phone: Blood platelet mean volumeon 10-29-2021 Platelet mean volume (Bld) [Entitic vol] 10.4 fL 6.2-12.0 [facility] Work Phone: [phone] Determination of erythrocyte mean corpuscular volume (MCV)on 10-29-2021 MCV (RBC) [Entitic vol] 86.6 fL 81-99 [facility] Work Phone: [phone] Hematocrit Auto (Bld) [Volum e fraction]on 10-29-2021 Hematocrit (Bld) [Volume fraction] 27.1 % 37-47 [facility] Work Phone: [phone] Laboratory - Chemistry and C hemistry - challengeon 10-29-2021 ALP [Catalytic activity/Vol] 77 U/L 45-117 [facility] Work Phone: ALT [Catalytic activity/Vol] 23 U/L 13-56 [facility] Work Phone: CO2 [Moles/Vol] 24.0 mmol/L 21.0-32.0 [facility] Work Phone: [phone] Globulin (S) [Mass/Vol] 4.4 g/dL 2.2-4.2 [facility] Work Phone: [phone] Urea nitrogen/Creatinine [Mass ratio] 23.5 mg/mg 10-20 [facility] Work Phone: Laboratory - Hematology and Cell countson 10-29-2021 Erythrocyte distribution width (RBC) [Entitic vol] 55.9 fL 35.1-43.9 [facility] Work Phone: Erythrocyte distribution width (RBC) [Ratio] 18.0 % 11.6-14.6 [facility] Work Phone: Immature granulocytes/100 WBC (Bld) 0.000 % 0.0-0.9 [facility] Work Phone: Comment on above: IG% - Immature Granu locytes (promyelocytes, myelocytes and metamyelocytes) > 1% indicates that a LEFT SHIFT is Present. MCH (RBC) [Entitic mass] 27.2 pg 27.0-32.0 [facility] Work Phone: Nucleated RBC/100 WBC (Bld) [Ratio] 0 % 0-5 [facility] Work Phone: MCHC Auto (RBC) [Mass/Vol]on 10-29-2021 MCHC (RBC) [Mass/Vol] 31.4 g/dL 32-36 [facility] Work Phone: No Panel Informationon 10-29 Estimated GFR (MDRD) Amer 92 mL/min >60 [facility] Work Phone: Comment on above: GFR Calc Estimated GFR (MDRD) Non-Af Amer 76 mL/min >60 [facility] Work Phone: Comment on above: Non- GFR Calc Thyroid Stimulating Hormone (TSH) 1.37 uIU/mL 0.358-3.74 [facility] Work Phone: Platelets bldon 10-29-2021 Platelets (Bld) [#/Vol] 164 10*3/uL 150-450 [facility] Work Phone: Serum or plasma albumin yonatan urement (mass/volume)on 10-29-2021 Albumin [Mass/Vol] 2.6 g/dL 3.2-5.0 [facility] Work Phone: Serum or plasma albumin/glob ulin mass ratioon 10-29-2021 Albumin/Globulin [Mass ratio] 0.6 {ratio} 0.9-2.4 [facility] Work Phone: [phone] Serum or plasma calcium yonatan urement (mass/volume)on 10-29-2021 Calcium [Mass/Vol] 9.2 mg/dL 8.5-10.1 [facility] Work Phone: [phone] Serum or plasma creatinine m easurement (mass/volume)on 10-29-2021 Creatinine [Mass/Vol] 0.77 mg/dL 0.55-1.02 [facility] Work Phone: [phone] Comment on above: The validity of the calculated GFR & GFRAA in patients over 70 years has not been determined. Clinical correlation is essential. Serum or plasma urea nitroge n measurement (mass/volume)on 10-29-2021 Urea nitrogen [Mass/Vol] 18 mg/dL 7-18 [facility] Work Phone: [phone] Thin prep Papanicolaou smear with manual screeningon 10-29-2021 Thin prep Papanicolaou smear with manual screening 27 U/L 15-37 [facility] Work Phone: Thin prep Papanicolaou smear with manual screening 8 07-29 [facility] Work Phone: [phone] Absolute lymphocyte counton 10-18-2021 Lymphocytes Auto (Unsp spec) [#/Vol] 1.43 10*3/uL 0.83-4.51 [facility] Work Phone: Basophil percentageon 2021 Basophil percentage 0 SEEN /hpf 0-5 [facility] Work Phone: Basophils/100 WBC (Bld) 0.4 % 0-1 [facility] Work Phone: Chloride [Moles/Vol] 111 mmol/L 98-107 [facility] Work Phone: Eosinophils/100 WBC (Bld) 1.4 % 0-5 [facility] Work Phone: [phone] Glucose [Mass/Vol] 113 mg/dL 74-106 [facility] Work Phone: [phone] Comment on above: Fasting Glucose resu lt from 100 to 125 mg/dL suggests IMPAIRED HOMEOSTASIS per A.D.A. criteria. Neutrophils (Bld) [#/Vol] 3.2 10*3/uL 2.0-7.7 [facility] Work Phone: Neutrophils/100 WBC (Bld) 57.4 % 47-70 [facility] Work Phone: Potassium [Moles/Vol] 3.9 mmol/L 3.5-5.1 [facility] Work Phone: Sodium [Moles/Vol] 140 mmol/L 136-145 [facility] Work Phone: WBC (Bld) [#/Vol] 5.5 10*3/uL 4.4-11.0 [facility] Work Phone: [phone] Bilirubin Test strip Ql (U)o n 10-18-2021 Bilirubin Ql (U) Negative Negative [facility] Work Phone: Blood erythrocytes count (nu mber/volume)on 10-18-2021 RBC (Bld) [#/Vol] 2.39 10*6/uL 4.2-5.4 [facility] Work Phone: Blood hemoglobin measurement (mass/volume)on 10-18-2021 Hemoglobin (Bld) [Mass/Vol] 6.2 g/dL 12.0-15.0 [facility] Work Phone: Blood lymphocytes/100 leukoc yteson 10-18-2021 Lymphocytes/100 WBC (Bld) 25.9 % 19-41 [facility] Work Phone: Blood monocytes/100 leukocyt eson 10-18-2021 Monocytes/100 WBC (Bld) 14.5 % 0-10 [facility] Work Phone: Blood platelet mean volumeon 10-18-2021 Platelet mean volume (Bld) [Entitic vol] 8.9 fL 6.2-12.0 [facility] Work Phone: Determination of erythrocyte mean corpuscular volume (MCV)on 10-18-2021 MCV (RBC) [Entitic vol] 84.5 fL 81-99 [facility] Work Phone: [phone] Hematocrit Auto (Bld) [Volum e fraction]on 10-18-2021 Hematocrit (Bld) [Volume fraction] 20.2 % 37-47 [facility] Work Phone: [phone] INR in Blood by Coagulation assayon 10-18-2021 INR Coag (Bld) [Relative time] 1.7 {INR} [facility] Work Phone: [phone] Iron measurement (mass/mass) on 10-18-2021 Iron (Unsp spec) [Mass/Mass] 25 ug/dL 50-170 [facility] Work Phone: [phone] Ketones Test strip Ql (U)on 10-18-2021 Ketones Ql (U) Negative Negative [facility] Work Phone: [phone] Laboratory - Chemistry and C hemistry - challengeon 10-18-2021 CO2 [Moles/Vol] 25.0 mmol/L 21.0-32.0 [facility] Work Phone: Urea nitrogen/Creatinine [Mass ratio] 23.5 mg/mg 10-20 [facility] Work Phone: Laboratory - Coagulationon 0 10-18-2021 PT Coag (PPP) [Time] 19.9 s 11.7-14.9 [facility] Work Phone: [phone] Laboratory - Hematology and Cell countson 10-18-2021 Erythrocyte distribution width (RBC) [Entitic vol] 53.0 fL 35.1-43.9 [facility] Work Phone: [phone] Erythrocyte distribution width (RBC) [Ratio] 17.2 % 11.6-14.6 [facility] Work Phone: [phone] Immature granulocytes/100 WBC (Bld) 0.400 % 0.0-0.9 [facility] Work Phone: Comment on above: IG% - Immature Granu locytes (promyelocytes, myelocytes and metamyelocytes) > 1% indicates that a LEFT SHIFT is Present. MCH (RBC) [Entitic mass] 25.9 pg 27.0-32.0 [facility] Work Phone: Nucleated RBC/100 WBC (Bld) [Ratio] 0 % 0-5 [facility] Work Phone: MCHC Auto (RBC) [Mass/Vol]on 10-18-2021 MCHC (RBC) [Mass/Vol] 30.7 g/dL 32-36 [facility] Work Phone: Mucus LM Ql (Urine sed)on Mucus Ql (Urine sed) 0 SEEN /hpf [facility] Work Phone: Nitrite Test strip Ql (U)on 10-18-2021 Nitrite Ql (U) Negative Negative [facility] Work Phone: No Panel Informationon 10-18 Estimated Creatinine Clearance Calc 38.50 ml/min [facility] Work Phone: Estimated GFR (MDRD) Amer 99 mL/min >60 [facility] Work Phone: Comment on above: GFR Calc Estimated GFR (MDRD) Non-Af Amer 82 mL/min >60 [facility] Work Phone: Comment on above: Non- GFR Calc Total Iron Binding Capacity 371 ug/dL 250-450 [facility] Work Phone: Platelets bldon 10-18-2021 Platelets (Bld) [#/Vol] 140 10*3/uL 150-450 [facility] Work Phone: Protein Test strip Ql (U)on 10-18-2021 Protein Ql (U) Negative Negative [facility] Work Phone: Serum or plasma calcium yonatan urement (mass/volume)on 10-18-2021 Calcium [Mass/Vol] 8.1 mg/dL 8.5-10.1 [facility] Work Phone: Serum or plasma creatinine m easurement (mass/volume)on 10-18-2021 Creatinine [Mass/Vol] 0.72 mg/dL 0.55-1.02 [facility] Work Phone: Comment on above: The validity of the calculated GFR & GFRAA in patients over 70 years has not been determined. Clinical correlation is essential. Serum or plasma ferritin shania surement (mass/volume)on 10-18-2021 Ferritin [Mass/Vol] 10 ng/mL 8-252 [facility] Work Phone: Serum or plasma iron saturat ion measurement (mass fraction)on 10-18-2021 Iron saturation [Mass fraction] 6.7 % 15.0-55.0 [facility] Work Phone: Serum or plasma urea nitroge n measurement (mass/volume)on 10-18-2021 Urea nitrogen [Mass/Vol] 17 mg/dL 7-18 [facility] Work Phone: Squamous epithelial cells de tection in urine sediment by light microscopyon 10-18-2021 Epithelial cells.squamous LM Ql (Urine sed) 0 SEEN /hpf 5-10 [facility] Work Phone: Thin prep Papanicolaou smear with manual screeningon 10-18-2021 Thin prep Papanicolaou smear with manual screening 4 5-15 [facility] Work Phone: Urine blood detectionon 08- RBC Ql (U) Negative Negative [facility] Work Phone: RBC Ql (U) 0 SEEN /hpf 0-5 [facility] Work Phone: Urine clarityon 10-18-2021 Clarity (U) Clear Clear [facility] Work Phone: Urine color determinationon 10-18-2021 Color (U) Yellow Yellow [facility] Work Phone: Urine glucose detectionon Glucose Ql (U) Normal mg/dl Normal [facility] Work Phone: Urine leukocyte esterase det ection by dipstickon 10-18-2021 Leukocyte esterase Test strip Ql (U) 100 /ul Negative [facility] Work Phone: Urine pHon 10-18-2021 pH (U) 6.5 [pH] 5.0 - 8.0 [facility] Work Phone: Urine sediment bacteria coun t by microscopy (number/high power field)on 10-18-2021 Bacteria LM.HPF (Urine sed) [#/Area] 0 /[HPF] None Seen [facility] Work Phone: Urine specific gravity measu rementon 10-18-2021 Specific gravity (U) [Rel density] 1.005 1.002-1.030 [facility] Work Phone: Urobilinogen Auto test strip Ql (U)on 10-18-2021 Urobilinogen Ql (U) Normal mg/dl Normal [facility] Work Phone: CBC W Auto Differential pane l (Bld)on 10-16-2021 Abs Immature Gran <0.03 <0.10 k/uL [facility] Basophils (Bld) [#/Vol] 0.04 10*3/uL <0.11 k/uL [facility] Basophils/100 WBC (Bld) 0.8 % [facility] Differential cell count method Nom (Bld) Auto [facility] Eosinophils (Bld) [#/Vol] 0.07 10*3/uL <0.46 k/uL [facility] Eosinophils/100 WBC (Bld) 1.3 % [facility] Erythrocyte distribution width (RBC) [Ratio] 17.0 % High 11.5 - 15.0 % [facility] Hematocrit (Bld) [Volume fraction] 21.0 % Low 36.0 - 46.0 % [facility] Hemoglobin (Bld) [Mass/Vol] 6.5 g/dL Low 11.5 - 15.5 g/dL [facility] Immature Gran % 0.4 % [facility] Lymphocytes (Bld) [#/Vol] 1.10 10*3/uL 1.00 - 4.00 k/uL [facility] Lymphocytes/100 WBC (Bld) 21.2 % [facility] MCH (RBC) [Entitic mass] 25.6 pg Low 26.0 - 34.0 pg [facility] MCHC (RBC) [Mass/Vol] 31.0 g/dL 30.5 - 36.0 g/dL [facility] MCV (RBC) [Entitic vol] 82.7 fL 80.0 - 100.0 fL [facility] Monocytes (Bld) [#/Vol] 0.61 10*3/uL <0.87 k/uL [facility] Monocytes/100 WBC (Bld) 11.7 % [facility] Neutrophils (Bld) [#/Vol] 3.36 10*3/uL 1.45 - 7.50 k/uL [facility] Neutrophils/100 WBC (Bld) 64.6 % [facility] Nucleated RBC (Bld) [#/Vol] 10*3/uL <0.01 k/uL [facility] Nucleated RBC/100 WBC (Bld) [Ratio] 0.0 /100 WBC [facility] Platelet mean volume (Bld) [Entitic vol] 9.1 fL 9.0 - 12.7 fL [facility] Platelets (Bld) [#/Vol] 164 10*3/uL 150 - 400 k/uL [facility] RBC (Bld) [#/Vol] 2.54 10*6/uL Low 3.90 - 5.2 0 m/uL [facility] WBC (Bld) [#/Vol] 5.20 10*3/uL 3.70 - 11.00 k/uL [facility] INR FINGERSTICK B/Oon 2021 INR Coag (Bld) [Relative time] 2.1 (biotel) [facility] Quality Check No [facility] INR FINGERSTICK B/Oon 2021 INR Coag (Bld) [Relative time] 4.8 {INR} [facility] CNOVon 09-26-2021 CNOV Office Visit (CRISTINE ) CHRISTIAN LANDRUM ([id number]) 1935 F Date Time Provider Department 09/26/21 [...] UTIs, used to see Dr. Burris at [facility]. Prior colovesical fistula, s/p sigmoid colectomy. [...] >=60 mL/min/1.73m? 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 Normal [facility] UA DIP, URINE (POC)on 2021 BILIRUBIN UA (POCT) Negative Negative [facility] CLARITY UA (POCT) Clear [facility] COLOR UA (POCT) Yellow [facility] GLUCOSE UA (POCT) Negative Negative mg/dL [facility] HEMOGLOBIN/BLOOD UA (POCT) Negative Negative [facility] KETONE UA (POCT) Negative Negative mg/dL [facility] LEUKOCYTES UA (POCT) Negative Negative [facility] NITRITE UA (POCT) Negative Negative [facility] PH UA (POCT) 6.5 4.5 - 8.0 [facility] Protein Ql (U) Negative Negative mg/dL [facility] SPECIFIC GRAVITY UA (POCT) 1.010 1.005 - 1.030 [facility] UROBILINOGEN UA (POCT) 0.2 E.U./dL Winifred l E.U./dL [facility] UA DIP, URINE (POC)on 2021 BILIRUBIN UA (POCT) Negative Negative [facility] CLARITY UA (POCT) Cloudy [facility] COLOR UA (POCT) Yellow [facility] GLUCOSE UA (POCT) Negative Negative mg/dL [facility] HEMOGLOBIN/BLOOD UA (POCT) Trace-intact Abnormal Negative [facility] KETONE UA (POCT) Negative Negative mg/dL [facility] LEUKOCYTES UA (POCT) Large Abnormal Negative [facility] NITRITE UA (POCT) Negative Negative [facility] PH UA (POCT) 6.0 4.5 - 8.0 [facility] Protein Ql (U) Negative Negative mg/dL [facility] SPECIFIC GRAVITY UA (POCT) 1.015 1.005 - 1.030 [facility] UROBILINOGEN UA (POCT) 0.2 E.U./dL Winifred l E.U./dL [facility] Absolute lymphocyte counton 08-26-2021 Lymphocytes Auto (Unsp spec) [#/Vol] 1.15 10*3/uL 0.83-4.51 [facility] Work Phone: Basophil percentageon 2021 Basophils/100 WBC (Bld) 0.4 % 0-1 [facility] Work Phone: Chloride [Moles/Vol] 109 mmol/L 98-107 [facility] Work Phone: Eosinophils/100 WBC (Bld) 1.9 % 0-5 [facility] Work Phone: Glucose [Mass/Vol] 111 mg/dL 74-106 [facility] Work Phone: Comment on above: Fasting Glucose resu lt from 100 to 125 mg/dL suggests IMPAIRED HOMEOSTASIS per A.D.A. criteria. Neutrophils (Bld) [#/Vol] 3.3 10*3/uL 2.0-7.7 [facility] Work Phone: Neutrophils/100 WBC (Bld) 61.2 % 47-70 [facility] Work Phone: Potassium [Moles/Vol] 4.1 mmol/L 3.5-5.1 [facility] Work Phone: Sodium [Moles/Vol] 140 mmol/L 136-145 [facility] Work Phone: WBC (Bld) [#/Vol] 5.3 10*3/uL 4.4-11.0 [facility] Work Phone: Blood erythrocytes count (nu mber/volume)on 08-26-2021 RBC (Bld) [#/Vol] 2.86 10*6/uL 4.2-5.4 [facility] Work Phone: Blood hemoglobin measurement (mass/volume)on 08-26-2021 Hemoglobin (Bld) [Mass/Vol] 8.0 g/dL 12.0-15.0 [facility] Work Phone: Blood lymphocytes/100 leukoc yteson 08-26-2021 Lymphocytes/100 WBC (Bld) 21.5 % 19-41 [facility] Work Phone: Blood monocytes/100 leukocyt eson 08-26-2021 Monocytes/100 WBC (Bld) 14.6 % 0-10 [facility] Work Phone: Blood platelet mean volumeon 08-26-2021 Platelet mean volume (Bld) [Entitic vol] 9.3 fL 6.2-12.0 [facility] Work Phone: [phone] Determination of erythrocyte mean corpuscular volume (MCV)on 08-26-2021 MCV (RBC) [Entitic vol] 90.2 fL 81-99 [facility] Work Phone: Hematocrit Auto (Bld) [Volum e fraction]on 08-26-2021 Hematocrit (Bld) [Volume fraction] 25.8 % 37-47 [facility] Work Phone: [phone] INR in Blood by Coagulation assayon 08-26-2021 INR Coag (Bld) [Relative time] 2.9 {INR} [facility] Work Phone: [phone] Laboratory - Chemistry and C hemistry - challengeon 08-26-2021 CO2 [Moles/Vol] 28.0 mmol/L 21.0-32.0 [facility] Work Phone: [phone] Urea nitrogen/Creatinine [Mass ratio] 15.6 mg/mg 10-20 [facility] Work Phone: [phone] Laboratory - Coagulationon 0 08-26-2021 PT Coag (PPP) [Time] 29.6 s 11.7-14.9 [facility] Work Phone: [phone] Laboratory - Hematology and Cell countson 08-26-2021 Erythrocyte distribution width (RBC) [Entitic vol] 56.8 fL 35.1-43.9 [facility] Work Phone: Erythrocyte distribution width (RBC) [Ratio] 17.1 % 11.6-14.6 [facility] Work Phone: Immature granulocytes/100 WBC (Bld) 0.400 % 0.0-0.9 [facility] Work Phone: Comment on above: IG% - Immature Granu locytes (promyelocytes, myelocytes and metamyelocytes) > 1% indicates that a LEFT SHIFT is Present. MCH (RBC) [Entitic mass] 28.0 pg 27.0-32.0 [facility] Work Phone: Nucleated RBC/100 WBC (Bld) [Ratio] 0 % 0-5 [facility] Work Phone: MCHC Auto (RBC) [Mass/Vol]on 08-26-2021 MCHC (RBC) [Mass/Vol] 31.0 g/dL 32-36 [facility] Work Phone: No Panel Informationon 08-26 Estimated Creatinine Clearance Calc 38.50 ml/min [facility] Work Phone: Estimated GFR (MDRD) Amer 92 mL/min >60 [facility] Work Phone: Comment on above: GFR Calc Estimated GFR (MDRD) Non-Af Amer 76 mL/min >60 [facility] Work Phone: Comment on above: Non- GFR Calc Platelets bldon 08-26-2021 Platelets (Bld) [#/Vol] 155 10*3/uL 150-450 [facility] Work Phone: Serum or plasma calcium yonatan urement (mass/volume)on 08-26-2021 Calcium [Mass/Vol] 8.7 mg/dL 8.5-10.1 [facility] Work Phone: Serum or plasma creatinine m easurement (mass/volume)on 08-26-2021 Creatinine [Mass/Vol] 0.77 mg/dL 0.55-1.02 [facility] Work Phone: Comment on above: The validity of the calculated GFR & GFRAA in patients over 70 years has not been determined. Clinical correlation is essential. Serum or plasma urea nitroge n measurement (mass/volume)on 08-26-2021 Urea nitrogen [Mass/Vol] 12 mg/dL 7-18 [facility] Work Phone: Thin prep Papanicolaou smear with manual screeningon 08-26-2021 Thin prep Papanicolaou smear with manual screening 3 5-15 [facility] Work Phone: Basophil percentageon 2021 WBC (Bld) [#/Vol] 6.6 10*3/uL 4.4-11.0 [facility] Work Phone: Blood erythrocytes count (nu mber/volume)on 08-23-2021 RBC (Bld) [#/Vol] 2.94 10*6/uL 4.2-5.4 [facility] Work Phone: Blood hemoglobin measurement (mass/volume)on 08-23-2021 Hemoglobin (Bld) [Mass/Vol] 8.2 g/dL 12.0-15.0 [facility] Work Phone: Blood platelet mean volumeon 08-23-2021 Platelet mean volume (Bld) [Entitic vol] 9.3 fL 6.2-12.0 [facility] Work Phone: Determination of erythrocyte mean corpuscular volume (MCV)on 08-23-2021 MCV (RBC) [Entitic vol] 89.8 fL 81-99 [facility] Work Phone: Hematocrit Auto (Bld) [Volum e fraction]on 08-23-2021 Hematocrit (Bld) [Volume fraction] 26.4 % 37-47 [facility] Work Phone: INR in Blood by Coagulation assayon 08-23-2021 INR Coag (Bld) [Relative time] 2.8 {INR} [facility] Work Phone: Laboratory - Coagulationon 0 08-23-2021 aPTT Coag (Bld) [Time] 46.5 s 24.1-36.2 [facility] Work Phone: [phone] PT Coag (PPP) [Time] 28.8 s 11.7-14.9 [facility] Work Phone: Laboratory - Hematology and Cell countson 08-23-2021 Erythrocyte distribution width (RBC) [Entitic vol] 56.3 fL 35.1-43.9 [facility] Work Phone: [phone] Erythrocyte distribution width (RBC) [Ratio] 17.0 % 11.6-14.6 [facility] Work Phone: [phone] MCH (RBC) [Entitic mass] 27.9 pg 27.0-32.0 [facility] Work Phone: [phone] MCHC Auto (RBC) [Mass/Vol]on 08-23-2021 MCHC (RBC) [Mass/Vol] 31.1 g/dL 32-36 [facility] Work Phone: [phone] Platelets bldon 08-23-2021 Platelets (Bld) [#/Vol] 160 10*3/uL 150-450 [facility] Work Phone: CBC panel Auto (Bld)on 08-13 Erythrocyte distribution width (RBC) [Ratio] 16.9 % High 11.5-15.0 [facility] Comment on above: Order Comment: Speci men Type: BLOOD SPECIMENOrdering Facility: [facility] Address: [address] [place] [address] Performed By: #### 5 8410-2 ####[facility]ORATORYCLIA [id number] [address] STATES OF [facility] Hematocrit (Bld) [Volume fraction] 25.6 % Low 36.0-46.0 [facility] Comment on above: Order Comment: Speci men Type: BLOOD SPECIMENOrdering Facility: [facility] Address: [address] [place] [address] Performed By: #### 5 8410-2 ####[facility]ORATORYCLIA [id number] [address] Hemoglobin (Bld) [Mass/Vol] 8.2 g/dL Low 11.5-15.5 [facility] Comment on above: Order Comment: Speci men Type: BLOOD SPECIMENOrdering Facility: [facility] Address: [address] [place] [address] Performed By: #### 5 8410-2 ####[facility]ORATORYCLIA [id number] [address] MCH (RBC) [Entitic mass] 28.4 pg Normal 26.0-34.0 [facility] Comment on above: Order Comment: Speci men Type: BLOOD SPECIMENOrdering Facility: [facility] Address: [address] [place] [address] Performed By: #### 5 8410-2 ####[facility] LABORATORYCLIA [id number] [address] MCHC (RBC) [Mass/Vol] 32.0 g/dL Normal 30.5-36.0 [facility] Comment on above: Order Comment: Speci men Type: BLOOD SPECIMENOrdering Facility: [facility] Address: [address] [place] [address] Performed By: #### 5 8410-2 ####[facility] LABORATORYCLIA [id number] [address] MCV (RBC) [Entitic vol] 88.6 fL Normal 80.0-100.0 [facility] Comment on above: Order Comment: Speci men Type: BLOOD SPECIMENOrdering Facility: [facility] Address: [address] [place] [address] Performed By: #### 5 8410-2 ####[facility] LABORATORYCLIA [id number] [address] Nucleated RBC (Bld) [#/Vol] 10*3/uL Normal <0.01 [facility] Comment on above: Order Comment: Speci men Type: BLOOD SPECIMENOrdering Facility: [facility] Address: [address] [place] [address] Performed By: #### 5 8410-2 ####[facility] LABORATORYCLIA [id number] [address] Platelet mean volume (Bld) [Entitic vol] 9.3 fL Normal 9.0-12.7 [facility] Comment on above: Order Comment: Speci men Type: BLOOD SPECIMENOrdering Facility: [facility] Address: [address] [place] [address] Performed By: #### 5 8410-2 ####[facility] LABORATORYCLIA [id number] [address] [place] Platelets (Bld) [#/Vol] 108 10*3/uL Low 150-400 [facility] Comment on above: Order Comment: Speci men Type: BLOOD SPECIMENOrdering Facility: [facility] Address: [address] [place] [address] Performed By: #### 5 8410-2 ####[facility] LABORATORYCLIA [id number] [address] RBC (Bld) [#/Vol] 2.89 10*6/uL Low 3.90-5.20 [facility] Comment on above: Order Comment: Speci men Type: BLOOD SPECIMENOrdering Facility: [facility] Address: [address] [place] [address] Performed By: #### 5 8410-2 ####[facility] LABORATORYCLIA [id number] [address] [place] WBC (Bld) [#/Vol] 5.19 10*3/uL Normal 3.70-11.00 [facility] Comment on above: Order Comment: Speci men Type: BLOOD SPECIMENOrdering Facility: [facility] Address: [address] [place] [address] Performed By: #### 5 8410-2 ####[facility] LABORATORYCLIA [id number] [address] [place] CNDSon 08-13-2021 CNDS HNO ID: [id number] Author: Alisha Velásquez PA-C Service: Hospital Medicine Author Type: Physician English Language Arts Teacher Type: Discharge Summary Filed: 08/13/2021 1:52 PM [...] Dr. Hebert Treatment Team: Attending Provider: Catarina Rasgdale MD Primary Service: [place] [address] Physician English Language Arts Teacher: Alisha Velásquez PA-C Consulting: Samuel Qiu MD [...] negative bacillie. Recent Urine cx from 07/06/21 eatson-sensitive E. Coli Empiric started on Ceftriaxone and [...] DISPOSITION: Ho (more content not included)... Normal [facility] Comprehensive metabolic 2000 panelon 08-13-2021 Albumin [Mass/Vol] 2.9 g/dL Low 3.9-4.9 [facility] Comment on above: Order Comment: Olga coley Type: BLOOD SPECIMEN Ordering Facility: [facility] Address: [address] [place] [address] Performed By: #### 5 7021-8 #### [facility] CLIA [id number] [address] [place] [address] [place] ALP [Catalytic activity/Vol] 71 U/L Normal 34-123 [facility] Comment on above: Order Comment: Olga coley Type: BLOOD SPECIMEN Ordering Facility: [facility] Address: [address] [place] [address] Performed By: #### 5 7021-8 #### [facility] CLIA [id number] [address] [place] [address] [place] ALT [Catalytic activity/Vol] 14 U/L Normal 7-38 [facility] Comment on above: Order Comment: Olga coley Type: BLOOD SPECIMEN Ordering Facility: [facility] Address: [address] [place] [address] Performed By: #### 5 7021-8 #### [facility] CLIA [id number] [address] [place] [address] [place] Anion gap [Moles/Vol] 9 mmol/L Normal 9-18 [facility] Comment on above: Order Comment: Speci men Type: BLOOD SPECIMEN Ordering Facility: [facility] Address: [address] [place] [address] Performed By: #### 5 7021-8 #### [facility] CLIA [id number] [address] [place] [address] [place] AST [Catalytic activity/Vol] 28 U/L Normal 13-35 [facility] Comment on above: Order Comment: Speci men Type: BLOOD SPECIMEN Ordering Facility: [facility] Address: [address] [place] [address] Performed By: #### 5 7021-8 #### [facility] CLIA [id number] [address] [place] [address] [place] Bilirubin [Mass/Vol] 0.5 mg/dL Normal 0.2-1.3 [facility] Comment on above: Order Comment: Speci men Type: BLOOD SPECIMEN Ordering Facility: [facility] Address: [address] [place] [address] Performed By: #### 5 7021-8 #### [facility] CLIA [id number] [address] [place] [address] [place] Calcium [Mass/Vol] 8.5 mg/dL Normal 8.5-10.2 [facility] Comment on above: Order Comment: Speci men Type: BLOOD SPECIMEN Ordering Facility: [facility] Address: [address] [place] [address] Performed By: #### 5 7021-8 #### [facility] CLIA [id number] [address] [place] [address] [place] Chloride [Moles/Vol] 110 mmol/L High 97-105 [facility] Comment on above: Order Comment: Speci men Type: BLOOD SPECIMEN [facility]ing Facility: [facility] Address: [address] [place] [address] Performed By: #### 5 7021-8 #### [facility] CLIA [id number] [address] [place] [address] [place] CO2 [Moles/Vol] 23 mmol/L Normal 22-30 [facility] Comment on above: Order Comment: Speci men Type: BLOOD SPECIMEN Ordering Facility: [facility] Address: [address] [place] [address] Performed By: #### 5 7021-8 #### [facility] CLIA [id number] [address] Creatinine [Mass/Vol] 0.74 mg/dL Normal 0.58-0.96 [facility] Comment on above: Order Comment: Olga coley Type: BLOOD SPECIMEN Ordering Facility: [facility] Address: [address] [place] [address] Performed By: #### 5 7021-8 #### [facility] CLIA [id number] [address] [place] ESTIMATED GLOMERULAR FILTRATION RATE 79 mL/min/1.73m??? Normal >=60 [facility] Comment on above: Order Comment: Olga coley Type: BLOOD SPECIMEN Ordering Facility: [facility] Address: [address] [place] [address] Result Comment: Huma mated Glomerular Filtration Rate [...] GFR. Performed By: #### 5 7021-8 #### [facility] CLIA [id number] [address] [place] Glucose [Mass/Vol] 126 mg/dL High 74-99 [facility] Comment on above: Order Comment: Olga coley Type: BLOOD SPECIMEN Ordering Facility: [facility] Address: [address] [place] [address] Result Comment: The [place] Diabetes [employer] (ADA) provides guidance for cutoff [...] Standards of Medical Care in Diabetes 2016, [place] [employer]. Diabetes Care. 2016.39(Suppl 1). Performed By: #### 5 7021-8 #### [facility] CLIA [id number] [address] [place] [address] [place] Potassium [Moles/Vol] 4.0 mmol/L Normal 3.7-5.1 [facility] Comment on above: Order Comment: Olga coley Type: BLOOD SPECIMEN Ordering Facility: [facility] Address: [address] [place] [address] Performed By: #### 5 7021-8 #### [facility] CLIA [id number] [address] [place] [address] [place] Protein [Mass/Vol] 6.5 g/dL Normal 6.3-8.0 [facility] Comment on above: Order Comment: Olga coley Type: BLOOD SPECIMEN Ordering Facility: [facility] Address: [address] [place] [address] Performed By: #### 5 7021-8 #### [facility] CLIA [id number] [address] [place] [address] [place] Sodium [Moles/Vol] 142 mmol/L Normal 136-144 [facility] Comment on above: Order Comment: Olga coley Type: BLOOD SPECIMEN Ordering Facility: [facility] Address: [address] [place] [address] Performed By: #### 5 7021-8 #### [facility] CLIA [id number] [address] [place] [address] [place] Urea nitrogen [Mass/Vol] 11 mg/dL Normal 7-21 [facility] Comment on above: Order Comment: Olga coley Type: BLOOD SPECIMEN Ordering Facility: [facility] Address: [address] [place] [place] [address] Performed By: #### 5 7021-8 #### [facility] CLIA [id number] [address] [place] Magnesium SerPl-mCncon 08-13 Magnesium [Mass/Vol] 2.1 mg/dL Normal 1.7-2.3 [facility] Comment on above: Order Comment: Olga coley Type: BLOOD SPECIMEN [facility] Facility: [facility] Address: [address] [place] [address] Performed By: #### 5 7021-8 #### [facility] CLIA [id number] [address] PT panel Coag (PPP)on 2021 INR Coag (PPP) [Relative time] 2.0 {INR} High 0.9-1.3 [facility] Comment on above: Order Comment: Olga coley Type: BLOOD SPECIMENOrdering Facility: [facility] Address: [address] [place] [address] Result Comment: Maricruz min K Antagonist (VKA) Therapeutic Range: INR 2 to 3 (Target INR of 2.5) Note: For patients treated with VKA drugs, such as warfarin, the [employer] 2012 Guideline recommends [...] Chest 2012, 141:7S-47S Geri RA, et al. JACC 2017, 70: 252-289 Performed By: #### 3 4528-0 ####[facility] LABORATORYCLIA [id number] [address] [place] PT Coag (PPP) [Time] 20.1 s High 9.7-13.0 [facility] Comment on above: Order Comment: Olga coley Type: BLOOD SPECIMENOrdering Facility: [facility] Address: [address] [place] [id number] Performed By: #### 3 4528-0 ####[facility] LABORATORYCLIA [id number] [place] [address] [place] Bacteria Bld Culton 08-13-19 22 Bacteria identified Cx Nom (Bld) CULTURE, BLOOD: No growth 5 days [facility] Comment on above: Performed By: #### 6 00-7 ####[facility] LAB[facility] [id number] [address] Bacteria identified Cx Nom (Bld) CULTURE, BLOOD: No growth 5 days [facility] Comment on above: Performed By: #### 6 00-7 ####[facility] LAB[facility] [id number] [address] [place] Bacteria Ur Culton 2 [...] F Susceptible <=40 , Resistant >40 Abnormal [facility] Comment on above: Performed By: #### 6 30-4 ####[facility] LAB[facility]IA [id number] [place] [address] [place] CBC W Auto Differential pane l (Bld)on 08-12-2021 Basophils (Bld) [#/Vol] 10*3/uL Normal <0.11 [facility] Comment on above: Order Comment: Speci men Type: BLOOD SPECIMEN Order[facility] Facility: [facility] Address: [address] [place] [address] Performed By: #### 5 7021-8 #### [facility] CLIA [id number] [address] [place] Basophils/100 WBC (Bld) 0.4 % Normal [facility] Comment on above: Order Comment: Speci men Type: BLOOD SPECIMEN Ordering Facility: [facility] Address: [address] [place] [address] Performed By: #### 5 7021-8 #### [facility] CLIA [id number] [address] [place] Differential cell count method Nom (Bld) Auto Normal [facility] Comment on above: Order Comment: Speci men Type: BLOOD SPECIMEN Ordering Facility: [facility] Address: [address] [place] [address] Performed By: #### 5 7021-8 #### [facility] CLIA [id number] 1000 00 [address] Eosinophils (Bld) [#/Vol] 0.07 10*3/uL Normal <0.46 [facility] Comment on above: Order Comment: Speci men Type: BLOOD SPECIMEN Ordering Facility: [facility] Address: [address] [place] [address] Performed By: #### 5 7021-8 #### [facility] CLIA [id number] [address] Eosinophils/100 WBC (Bld) 1.4 % Normal [facility] Comment on above: Order Comment: Speci men Type: BLOOD SPECIMEN Ordering Facility: [facility] Address: [address] [place] [address] Performed By: #### 5 7021-8 #### [facility] CLIA [id number] [address] Erythrocyte distribution width (RBC) [Ratio] 16.9 % High 11.5-15.0 [facility] Comment on above: Order Comment: Speci men Type: BLOOD SPECIMEN Ordering Facility: [facility] Address: [address] [place] [address] Performed By: #### 5 7021-8 #### [facility] CLIA [id number] [address] Hematocrit (Bld) [Volume fraction] 25.7 % Low 36.0-46.0 [facility] Comment on above: Order Comment: Speci men Type: BLOOD SPECIMEN Ordering Facility: [facility] Address: [address] [place] [address] Performed By: #### 5 7021-8 #### [facility] CLIA [id number] [address] [place] Hemoglobin (Bld) [Mass/Vol] 8.1 g/dL Low 11.5-15.5 [facility] Comment on above: Order Comment: Speci men Type: BLOOD SPECIMEN Ordering Facility: [facility] Address: [address] [place] [address] Performed By: #### 5 7021-8 #### [facility] CLIA [id number] [address] IMMATURE GRAN % 0.4 % Normal [facility] Comment on above: Order Comment: Speci men Type: BLOOD SPECIMEN Ordering Facility: [facility] Address: [address] [place] [address] Performed By: #### 5 7021-8 #### [facility] CLIA [id number] [address] IMMATURE GRAN ABS <0.03 Normal <0.10 [facility] Comment on above: Order Comment: Speci men Type: BLOOD SPECIMEN Ordering Facility: [facility] Address: [address] [place] [address] Performed By: #### 5 7021-8 #### [facility] CLIA [id number] [address] Lymphocytes (Bld) [#/Vol] 1.28 10*3/uL Normal 1.00-4.00 [facility] Comment on above: Order Comment: Speci men Type: BLOOD SPECIMEN Ordering Facility: [facility] Address: [address] [place] [address] Performed By: #### 5 7021-8 #### [facility] CLIA [id number] [address] Lymphocytes/100 WBC (Bld) 25.5 % Normal [facility] Comment on above: Order Comment: Speci men Type: BLOOD SPECIMEN Ordering Facility: [facility] Address: [address] [place] [address] Performed By: #### 5 7021-8 #### [facility] CLIA [id number] [address] [place] MCH (RBC) [Entitic mass] 28.7 pg Normal 26.0-34.0 [facility] Comment on above: Order Comment: Speci men Type: BLOOD SPECIMEN Ordering Facility: [facility] Address: [address] [place] [address] Performed By: #### 5 7021-8 #### [facility] CLIA [id number] [address] MCHC (RBC) [Mass/Vol] 31.5 g/dL Normal 30.5-36.0 [facility] Comment on above: Order Comment: Speci men Type: BLOOD SPECIMEN Ordering Facility: [facility] Address: [address] [place] [address] Performed By: #### 5 7021-8 #### [facility] CLIA [id number] [address] MCV (RBC) [Entitic vol] 91.1 fL Normal 80.0-100.0 [facility] Comment on above: Order Comment: Speci men Type: BLOOD SPECIMEN Ordering Facility: [facility] Address: [address] [place] [address] Performed By: #### 5 7021-8 #### [facility] CLIA [id number] [address] Monocytes (Bld) [#/Vol] 0.75 10*3/uL Normal <0.87 [facility] Comment on above: Order Comment: Speci men Type: BLOOD SPECIMEN Ordering Facility: [facility] Address: [address] [place] [address] Performed By: #### 5 7021-8 #### [facility] CLIA [id number] [address] Monocytes/100 WBC (Bld) 15.0 % Normal [facility] Comment on above: Order Comment: Speci men Type: BLOOD SPECIMEN Ordering Facility: [facility] Address: [address] [place] [address] Performed By: #### 5 7021-8 #### [facility] CLIA [id number] [address] Neutrophils (Bld) [#/Vol] 2.87 10*3/uL Normal 1.45-7.50 [facility] Comment on above: Order Comment: Speci men Type: BLOOD SPECIMEN Ordering Facility: [facility] Address: [address] [place] [address] Performed By: #### 5 7021-8 #### [facility] CLIA [id number] [address] [place] Neutrophils/100 WBC (Bld) 57.3 % Normal [facility] Comment on above: Order Comment: Speci men Type: BLOOD SPECIMEN Ordering Facility: [facility] Address: [address] [place] [address] Performed By: #### 5 7021-8 #### [facility] CLIA [id number] [address] [place] Nucleated RBC (Bld) [#/Vol] 10*3/uL Normal <0.01 [facility] Comment on above: Order Comment: Speci men Type: BLOOD SPECIMEN Ordering Facility: [facility] Address: [address] [place] [address] Performed By: #### 5 7021-8 #### [facility] CLIA [id number] [address] STATES [facility] Nucleated RBC/100 WBC (Bld) [Ratio] 0.0 /100 WBC Normal [facility] Comment on above: Order Comment: Speci men Type: BLOOD SPECIMEN Ordering Facility: [facility] Address: [address] [place] [address] Performed By: #### 5 7021-8 #### [facility] CLIA [id number] [address] [place] [address] [place] Platelet mean volume (Bld) [Entitic vol] 9.6 fL Normal 9.0-12.7 [facility] Comment on above: Order Comment: Speci men Type: BLOOD SPECIMEN Ordering Facility: [facility] Address: [address] [place] [address] Performed By: #### 5 7021-8 #### [facility] CLIA [id number] [address] [place] [address] [place] Platelets (Bld) [#/Vol] 116 10*3/uL Low 150-400 [facility] Comment on above: Order Comment: Speci men Type: BLOOD SPECIMEN Ordering Facility: [facility] Address: [address] [place], [place] [address] Performed By: #### 5 7021-8 #### [facility] CLIA [id number] [address] [place] RBC (Bld) [#/Vol] 2.82 10*6/uL Low 3.90-5.20 [facility] Comment on above: Order Comment: Speci men Type: BLOOD SPECIMEN Ordering Facility: [facility] Address: [address] [place], [place] [address] Performed By: #### 5 7021-8 #### [facility] CLIA [id number] [address] OF [facility] WBC (Bld) [#/Vol] 5.01 10*3/uL Normal 3.70-11.00 [facility] Comment on above: Order Comment: Speci men Type: BLOOD SPECIMEN Ordering Facility: [facility] Address: [address] [place], [place] [address] Performed By: #### 5 7021-8 #### [facility] CLIA [id number] [address] Comprehensive metabolic 2000 panelon 08-12-2021 Albumin [Mass/Vol] 3.1 g/dL Low 3.9-4.9 [facility] Comment on above: Order Comment: Speci men Type: BLOOD SPECIMENOrdering Facility: [facility] Address: [address] [place], [place] [address] Performed By: #### P ADAN, 49080-9 ####[facility] [id number] [address] ALP [Catalytic activity/Vol] 78 U/L Normal 34-123 [facility] Comment on above: Order Comment: Speci men Type: BLOOD SPECIMENOrdering Facility: [facility] Address: [address] [place], [place] [address] Performed By: #### P ROCAL, ####[facility] [id number] [place] [address] [place] ALT [Catalytic activity/Vol] 15 U/L Normal 7-38 [facility] Comment on above: Order Comment: Speci men Type: BLOOD SPECIMENOrdering Facility: [facility] Address: [address] [place] [address] Performed By: #### Jyoti ARELLANO, 50626-7 ####[facility] [id number] [place] [address] [place] Anion gap [Moles/Vol] 8 mmol/L Low 9-18 [facility] Comment on above: Order Comment: Speci men Type: BLOOD SPECIMENOrdering Facility: [facility] Address: [address] [place] [address] Performed By: #### Jyoti ARELLANO 39650-2 ####[facility] [id number] [address] AST [Catalytic activity/Vol] 31 U/L Normal 13-35 [facility] Comment on above: Order Comment: Speci men Type: BLOOD SPECIMENOrdering Facility: [facility] Address: [address] [place] [address] Performed By: #### Jyoti ARELLANO, 98491-0 ####[facility] [id number] [address] [place] Bilirubin [Mass/Vol] 0.6 mg/dL Normal 0.2-1.3 [facility] Comment on above: Order Comment: Speci men Type: BLOOD SPECIMENOrdering Facility: [facility] Address: [address] [place] [address] Performed By: #### Jyoti ARELLANO, 85478-4 ####[facility] [id number] [address] Calcium [Mass/Vol] 8.7 mg/dL Normal 8.5-10.2 [facility] Comment on above: Order Comment: Speci men Type: BLOOD SPECIMENOrdering Facility: [facility] Address: [address] [place] [address] Performed By: #### P ROCAL, 91756-4 ####[facility] [id number] [place] [address] [place] Chloride [Moles/Vol] 106 mmol/L High 97-105 [facility] Comment on above: Order Comment: Speci men Type: BLOOD SPECIMENOrdering Facility: [facility] Address: [address] [place] [address] Performed By: #### P ROCAL, 84384-5 ####[facility] [id number] [address] [place] CO2 [Moles/Vol] 24 mmol/L Normal 22-30 [facility] Comment on above: Order Comment: Ifrahi men Type: BLOOD SPECIMENOrdering Facility: [facility] Address: [address] [place] [address] Performed By: #### P ROCELBRET, 92536-7 ####[facility] [id number] [address] STATES OF [facility] Creatinine [Mass/Vol] 0.78 mg/dL Normal 0.58-0.96 [facility] Comment on above: Order Comment: Ifrahi vianca Type: BLOOD SPECIMENOrdering Facility: [facility] Address: [address] [place] [address] Performed By: #### P ROCELBERT, 02367-3 ####[facility] [id number] [address] ESTIMATED GLOMERULAR FILTRATION RATE 75 mL/min/1.73m??? Normal >=60 [facility] Comment on above: Order Comment: Olga men Type: BLOOD SPECIMENOrdering Facility: [facility] Address: [address] [place] [address] Result Comment: Huma mated Glomerular Filtration Rate [...] actual GFR. Performed By: #### Jyoti ARELLANO, 40126-5 ####[facility] [id number] [place] [address] [place] Glucose [Mass/Vol] 113 mg/dL High 74-99 [facility] Comment on above: Order Comment: Olga coley Type: BLOOD SPECIMENOrdering Facility: [facility] Address: [address] [place] [address] Result Comment: The [employer] (ADA) provides guidance for cutoff [...] Standards of Medical Care in Diabetes 2016, [employer]. Diabetes Care. 2016.39(Suppl 1). Performed By: #### Jyoti ARELLANO, 35296-4 ####[facility] [id number] [place] [address] [place] Potassium [Moles/Vol] 3.6 mmol/L Low 3.7-5.1 [facility] Comment on above: Order Comment: Olga coley Type: BLOOD SPECIMENOrdering Facility: [facility] Address: [address] [place] [address] Performed By: #### Jyoti ARELLANO, 80923-2 ####[facility] [id number] [place] [id number] [place] Protein [Mass/Vol] 7.0 g/dL Normal 6.3-8.0 [facility] Comment on above: Order Comment: Olga coley Type: BLOOD SPECIMENOrdering Facility: [facility] Address: [address] [place] [address] Performed By: #### Jyoti ARELLANO, 57356-8 ####[facility] [id number] [address] [place] Sodium [Moles/Vol] 138 mmol/L Normal 136-144 [facility] Comment on above: Order Comment: Speci men Type: BLOOD SPECIMENOrdering Facility: [facility] Address: [address] [place], [place] [address] Performed By: #### P ROCAL, 42605-0 ####[facility] [id number] [address] [place] Urea nitrogen [Mass/Vol] 13 mg/dL Normal 7-21 [facility] Comment on above: Order Comment: Speci men Type: BLOOD SPECIMENOrdering Facility: [facility] Address: [address] [place] [address] Performed By: #### P ROCAL, 65868-5 ####[facility] [id number] [address] OF [facility] ED NOTEon 08-12-2021 ED NOTE HNO ID: [id number] Author: Madonna Dimas RN Service: ? Author Type: Registered Nurse Type: ED Notes Filed: 08/12/2021 7:37 PM Note Text: Pt report was called to [facility] ED NOTE HNO ID: [id number] Author: Madonna Dimas RN Service: ? Author Type: Registered Nurse Type: ED Notes Filed: 08/12/2021 7:32 PM Note Text: Pt is ambulatory Family has been bedside [facility] ED NOTE HNO ID: [id number] Author: Madonna Dimas RN Service: ? Author Type: Registered Nurse Type: ED Notes Filed: 08/12/2021 6:23 PM Note Text: Waiting for a bed assignment in the hospital [facility] ED NOTE HNO ID: [id number] Author: Madonna Dimas RN Service: ? Author Type: Registered Nurse Type: ED Notes Filed: 08/12/2021 3:42 PM Note Text: Pt report was received [facility] ED NOTE HNO ID: [id number] Author: Marcela Sandoval RN Service: Nursing Author [...] started with a fever and hematuria today. [facility] ED PROV NOTEon 08-12-2021 ED PROV NOTE HNO ID: [id number] Author: Page Dudley MD Service: ? Author [...] She was admitted earlier this month at [facility] for sepsis, seemingly from a UTI. She [...] REMOVE TONSILS/ADENOIDS,<12 (more content not included)... Normal [facility] Gas and Carbon monoxide pane l (BldV)on 08-12-2021 Base excess Calc (BldV) [Moles/Vol] 0 mmol/L Normal 0-2 [facility] Comment on above: Order Comment: Speci men Type: VENOUS BLOOD SPECIMENOrdering Facility: [facility] Address: [address] [address] Performed By: #### 2 4344-4 ####[facility] [id number] [facility] [id number] [address] [address] Carboxyhemoglobin (BldV) [Mass fraction] 1.0 % Normal 0.0-2.0 [facility] Comment on above: Order Comment: Speci men Type: VENOUS BLOOD SPECIMENOrdering Facility: [facility] Address: [address] [address] Performed By: #### 2 4344-4 ####[facility] [id number] [facility] [id number] [address] CO2 (BldV) [Partial pressure] 39 mm[Hg] Low 42-55 [facility] Comment on above: Order Comment: Speci men Type: VENOUS BLOOD SPECIMENOrdering Facility: [facility] Address: [address] [address] Performed By: #### 2 4344-4 ####[facility] [id number] [facility] [id number] [address] [address] CO2 adjusted to patient's actual temperature (BldV) [Partial pressure] Normal [facility] Comment on above: Order Comment: Speci men Type: VENOUS BLOOD SPECIMENOrdering Facility: [facility] Address: [address] [place] [address] Performed By: #### 2 4344-4 ####[facility] [id number] [facility] [id number] [address] [address] HCO3 (Bld) [Moles/Vol] 24 mmol/L Normal 24-28 [facility] Comment on above: Order Comment: Speci men Type: VENOUS BLOOD SPECIMENOrdering Facility: [facility] Address: [address] [place] [address] Performed By: #### 2 4344-4 ####[facility] [id number] [facility] [id number] [place] [address] Hemoglobin (Bld) [Mass/Vol] 15.3 g/dL Normal 11.5-15.5 [facility] Comment on above: Order Comment: Speci men Type: VENOUS BLOOD SPECIMENOrdering Facility: [facility] Address: [address] [place] [address] Performed By: #### 2 4344-4 ####[facility] [id number] [facility] [id number] [address] [address] Lactate [Moles/Vol] 1.9 mmol/L Normal 0.5-2.2 [facility] Comment on above: Order Comment: Speci men Type: VENOUS BLOOD SPECIMENOrdering Facility: [facility] Address: [address] [place] [address] Performed By: #### 2 4344-4 ####[facility] [id number] [facility]OS[facility] RESPIR[facility] [id number] [address] [address] Methemoglobin (Bld) [Mass fraction] % Normal 0.0-1.5 [facility] Comment on above: Order Comment: Speci men Type: VENOUS BLOOD SPECIMENOrdering Facility: [facility] Address: [address] Performed By: #### 2 4344-4 ####[facility] [id number] [facility] [id number] [address] [address] O2 THERAPY RA=Room Air Normal [facility] Comment on above: Order Comment: Speci men Type: VENOUS BLOOD SPECIMENOrdering Facility: [facility] Address: [address] Performed By: #### 2 4344-4 ####[facility] [id number] [facility] [id number] [address] [address] Oxygen (BldV) [Partial pressure] 43 mm[Hg] Normal 35-45 [facility] Comment on above: Order Comment: Speci men Type: VENOUS BLOOD SPECIMENOrdering Facility: [facility] Address: [address] [address] Performed By: #### 2 4344-4 ####[facility] RESPIRATORYIA [id number] [facility] [id number] [address] [address] Oxygen adjusted to patient's actual temperature (BldV) [Partial pressure] Normal [facility] Comment on above: Order Comment: Speci men Type: VENOUS BLOOD SPECIMENOrdering Facility: [facility] Address: [address] Performed By: #### 2 4344-4 ####[facility]ORYCL[facility] [id number] [facility] [id number] [address] [address] Oxyhemoglobin (BldV) [Mass fraction] 74 % Normal 60-85 [facility] Comment on above: Order Comment: Speci men Type: VENOUS BLOOD SPECIMENOrdering Facility: [facility] Address: [address] Performed By: #### 2 4344-4 ####[facility]ORYCL[facility] [id number] [facility]OS[facility] [id number] [address] [address] pH (BldV) 7.41 [pH] Normal 7.32-7.42 [facility] Comment on above: Order Comment: Olga coley Type: VENOUS BLOOD SPECIMENOrdering Facility: [facility] Address: [address] [place] [address] Performed By: #### 2 4344-4 ####[facility]ATORYCLIA [id number] [facility] [id number] [address] pH adjusted to patient's actual temperature (BldV) Normal [facility] Comment on above: Order Comment: Olga coley Type: VENOUS BLOOD SPECIMENOrdering Facility: [facility] Address: [address] [place] [address] Performed By: #### 2 4344-4 ####[facility] [id number] [facility] RES[facility] [id number] [place] [address] Potassium [Moles/Vol] 3.6 mmol/L Normal 3.5-5.0 [facility] Comment on above: Order Comment: Olga coley Type: VENOUS BLOOD SPECIMENOrdering Facility: [facility] Address: [address] [place] [address] Performed By: #### 2 4344-4 ####[facility] [id number] [facility] RES[facility] [id number] [place] [address] HISTORY PHYSICALon HISTORY PHYSICAL HNO ID: [id number] Author: Vania Oliveira APRN.CNP Service: Hospital Medicine [...] Galina Iraheta MD NIGHT AND WEEKEND COVERAGE: [facility] COVER[facility]: Days: [phone], please page attending physician. Nights: [phone], please page [facility] Night coverage pager [phone]. Subjective CHIEF COMPLAINT: dysuria HPI: 86yo female [...] sepsis as this was diagnosed recently at [facility], thus requesting admission for IV antibiotics. Patient [...] BREAST NEEDLE (more content not included)... Normal [facility] PROCALCITONIN (LAB)on 2021 Procalcitonin [Mass/Vol] 0.11 ng/mL High <0.09 [facility] Comment on above: Order Comment: Olga coley Type: BLOOD SPECIMENOrdering Facility: [facility] Address: [address] [place] [address] Result Comment: For a guided interpretation of test results, please visit the Change in Procalcitonin Calculator, [email or web address]. Performed By: #### P ADAN, 59763-3 ####[facility]ATORYCLIA [id number] [address] OF [facility] PT panel Coag (PPP)on 2021 INR Coag (PPP) [Relative time] 2.0 {INR} High 0.9-1.3 [facility] Comment on above: Order Comment: Speci vianca Type: BLOOD SPECIMENOrdering Facility: [facility] Address: [address] [place], [place] [address] Result Comment: Maricruz min K Antagonist (VKA) Therapeutic Range: INR 2 to 3 (Target INR of 2.5) Note: For patients treated with VKA drugs, such as warfarin, the [employer] of Chest Physicians 2012 Guideline recommends [...] Chest 2012, 141:7S-47S Geri LYNCH et al. [facility] 2017, 70: 252-289 Performed By: #### 3 4528-0, 04163-8 ####RODAS LABORATORYCLIA [id number] [place] [address] [place] PT Coag (PPP) [Time] 20.3 s High 9.7-13.0 [facility] Comment on above: Order Comment: Speci men Type: BLOOD SPECIMENOrdering Facility: [facility] Address: [address] [place] [address] Performed By: #### 3 4528-0, 63417-8 ####HOPE LABORATORYCLIA [id number] [address] [place] SARS-CoV-2 RNA Resp Ql DEMARCUS+p robeon 08-12-2021 SARS-CoV-2 (COVID-19) RNA DEMARCUS+probe Ql (Resp) COVID 19 RESULT: SARS-CoV-2 (Agent of COVID-19) Not Detected by RT-PCR or equivalent method. This test has been authorized by FDA under an Emergency Use Authorization (EUA). Normal [facility] Comment on above: Performed By: #### 9 4500-6 ####HOPE LABORATORYCLIA [id number] [address] [place] URINALYSIS, REFLEX MICROSCOP ICon 08-12-2021 Bilirubin Ql (U) Negative Normal Negative [facility] Comment on above: Order Comment: Speci men Type: URINE SPECIMENOrdering Facility: [facility] Address: [address] [place] [address] Performed By: #### L [id number] ####HOPE LABORATORYIA [id number] [address] [place] Clarity (Unsp spec) Clear Normal Clear [facility] Comment on above: Order Comment: Speci men Type: URINE SPECIMENOrdering Facility: [facility] Address: [address] [place] [address] Performed By: #### L [id number] ####HOPE LABORATORYCLIA [id number] [address] Color (U) Yellow Normal Yellow [facility] Comment on above: Order Comment: Speci men Type: URINE SPECIMENOrdering Facility: [facility] Address: [address] [place] [address] Performed By: #### L [id number] ####RODAS LABORATORYCLIA [id number] [address] Glucose Test strip (U) [Mass/Vol] Negative Normal Negative [facility] Comment on above: Order Comment: Speci men Type: URINE SPECIMENOrdering Facility: [facility] Address: [address] [address] Performed By: #### L [id number] ####RODAS LABORATORYCLIA [id number] [address] Hemoglobin Ql (U) Trace Abnormal Negative [facility] Comment on above: Order Comment: Speci men Type: URINE SPECIMENOrdering Facility: [facility] Address: [address] [place] [address] Performed By: #### L [id number] ####RODAS LABORATORYCLIA [id number] [address] Ketones Ql (U) Negative Normal Negative [facility] Comment on above: Order Comment: Speci men Type: URINE SPECIMENOrdering Facility: [facility] Address: [address] [place] [address] Performed By: #### L [id number] ####RODAS LABORATORYCLIA [id number] [address] Leukocyte esterase Test strip Ql (U) 3+ Abnormal Negative [facility] Comment on above: Order Comment: Speci men Type: URINE SPECIMENOrdering Facility: [facility] Address: [address] [address] Performed By: #### L [id number] ####RODAS LABORATORYCLIA [id number] [place] [address] [place] Nitrite Ql (U) Negative Normal Negative [facility] Comment on above: Order Comment: Speci men Type: URINE SPECIMENOrdering Facility: [facility] Address: [address] [address] Performed By: #### L [id number] ####RODAS LABORATORYCLIA [id number] [address] [place] pH (U) 6.5 [pH] Normal 5.0-8.0 [facility] Comment on above: Order Comment: Speci men Type: URINE SPECIMENOrdering Facility: [facility] Address: [address] [place] [address] Performed By: #### L [id number] ####HOPE LABORATORYCLIA [id number] [address] Protein (U) [Mass/Vol] Negative Normal Negative [facility] Comment on above: Order Comment: Speci men Type: URINE SPECIMENOrdering Facility: [facility] Address: [address] [place] [address] Performed By: #### L [id number] ####[facility]ALION HOSPITALCLIA [id number] [place] [address] [place] RBC LM.HPF (Urine sed) [#/Area] 0-3 /HPF Normal 0-3 /HPF [facility] Comment on above: Order Comment: Speci men Type: URINE SPECIMENOrdering Facility: [facility] Address: [address] [place] [address] Performed By: #### L [id number] ####[facility]OM[facility]ENE HOSPITALIA [id number] [address] [place] Specific gravity (U) [Rel density] <=1.005 Low 1.005-1.030 [facility] Comment on above: Order Comment: Speci men Type: URINE SPECIMENOrdering Facility: [facility] Address: [address] [place] [address] Performed By: #### L [id number] ####HOPE LABORATORYCLIA [id number] [address] [place] Urobilinogen Ql (U) 0.2 EU/dL Normal 0.2-1.0 EU/dL [facility] Comment on above: Order Comment: Speci men Type: URINE SPECIMENOrdering Facility: [facility] Address: [address] [place] [address] Performed By: #### L [id number] ####RODAS LABORATORYCLIA [id number] [place] [address] [place] WBC LM.HPF (Urine sed) [#/Area] /[HPF] Abnormal 0-5 /HPF [facility] Comment on above: Order Comment: Speci men Type: URINE SPECIMENOrdering Facility: [facility] Address: [address] [place] [address] Performed By: #### L [id number] ####HOPE LABORATORYCLIA [id number] [place] [id number] [place] US DVT LOWER [...] imaged segments of the left lower extremity. Costume Shop Manager: PSCB Transcribe Date/Time: Aug 12 2021 9:49P Dictated by : MEHRDAD INIGUEZ MD This examination was interpreted and the report reviewed and electronically signed by: MEHRDAD INIGUEZ MD on Aug 12 2021 9:50PM EST [id number] Normal [facility] aPTT PPPon 08-12-2021 aPTT Coag (PPP) [Time] 72.9 s High 23.0-32.4 [facility] Comment on above: Order Comment: Speci men Type: BLOOD SPECIMENOrdering Facility: [facility] Address: [address] [place] [id number] Performed By: #### 3 4528-0, 69506-1 ####HOPE LABORATORYCLIA [id number] [place] [id number] [place] [facility] UA DIP, URINE (POC)on 2021 BILIRUBIN UA (POCT) Negative Negative [facility] CLARITY UA (POCT) Clear [facility] COLOR UA (POCT) Yellow [facility] GLUCOSE UA (POCT) Negative Negative mg/dL [facility] HEMOGLOBIN/BLOOD UA (POCT) Trace-intact Abnormal Negative [facility] KETONE UA (POCT) Negative Negative mg/dL [facility] LEUKOCYTES UA (POCT) Small Abnormal Negative [facility] NITRITE UA (POCT) Negative [facility] PH UA (POCT) 6.5 4.5 - 8.0 [facility] Protein Ql (U) Negative Negative mg/dL [facility] SPECIFIC GRAVITY UA (POCT) 1.010 1.005 - 1.030 [facility] UROBILINOGEN UA (POCT) 0.2 E.U./dL Winifred l E.U./dL [facility] Absolute lymphocyte counton 07-23-2021 Lymphocytes Auto (Unsp spec) [#/Vol] 1.68 10*3/uL 0.83-4.51 [facility] Work Phone: Basophil percentageon 2021 Basophils/100 WBC (Bld) 0.7 % 0-1 [facility] Work Phone: Chloride [Moles/Vol] 109 mmol/L 98-107 [facility] Work Phone: Eosinophils/100 WBC (Bld) 1.3 % 0-5 [facility] Work Phone: Glucose [Mass/Vol] 79 mg/dL 74-106 [facility] Work Phone: Neutrophils (Bld) [#/Vol] 4.3 10*3/uL 2.0-7.7 [facility] Work Phone: Neutrophils/100 WBC (Bld) 61.7 % 47-70 [facility] Work Phone: Potassium [Moles/Vol] 3.8 mmol/L 3.5-5.1 [facility] Work Phone: Sodium [Moles/Vol] 143 mmol/L 136-145 [facility] Work Phone: WBC (Bld) [#/Vol] 7.0 10*3/uL 4.4-11.0 [facility] Work Phone: Blood erythrocytes count (nu mber/volume)on 07-23-2021 RBC (Bld) [#/Vol] 3.00 10*6/uL 4.2-5.4 [facility] Work Phone: Blood hemoglobin measurement (mass/volume)on 07-23-2021 Hemoglobin (Bld) [Mass/Vol] 9.0 g/dL 12.0-15.0 [facility] Work Phone: Blood lymphocytes/100 leukoc yteson 07-23-2021 Lymphocytes/100 WBC (Bld) 24.1 % 19-41 [facility] Work Phone: Blood monocytes/100 leukocyt eson 07-23-2021 Monocytes/100 WBC (Bld) 12.1 % 0-10 [facility] Work Phone: Blood platelet mean volumeon 07-23-2021 Platelet mean volume (Bld) [Entitic vol] 9.5 fL 6.2-12.0 [facility] Work Phone: [phone] Determination of erythrocyte mean corpuscular volume (MCV)on 07-23-2021 MCV (RBC) [Entitic vol] 94.0 fL 81-99 [facility] Work Phone: Hematocrit Auto (Bld) [Volum e fraction]on 07-23-2021 Hematocrit (Bld) [Volume fraction] 28.2 % 37-47 [facility] Work Phone: [phone] INR in Blood by Coagulation assayon 07-23-2021 INR Coag (Bld) [Relative time] 2.6 {INR} [facility] Work Phone: [phone] Laboratory - Chemistry and C hemistry - challengeon 07-23-2021 CO2 [Moles/Vol] 28.0 mmol/L 21.0-32.0 [facility] Work Phone: [phone] Magnesium [Mass/Vol] 2.2 mg/dL 1.6-2.6 [facility] Work Phone: [phone] Urea nitrogen/Creatinine [Mass ratio] 21.6 mg/mg 10-20 [facility] Work Phone: [phone] Laboratory - Coagulationon 0 07-23-2021 PT Coag (PPP) [Time] 27.5 s 11.7-14.9 [facility] Work Phone: [phone] Laboratory - Hematology and Cell countson 07-23-2021 Erythrocyte distribution width (RBC) [Entitic vol] 58.2 fL 35.1-43.9 [facility] Work Phone: [phone] Erythrocyte distribution width (RBC) [Ratio] 16.9 % 11.6-14.6 [facility] Work Phone: [phone] Immature granulocytes/100 WBC (Bld) 0.100 % 0.0-0.9 [facility] Work Phone: [phone] Comment on above: IG% - Immature Granu locytes (promyelocytes, myelocytes and metamyelocytes) > 1% indicates that a LEFT SHIFT is Present. MCH (RBC) [Entitic mass] 30.0 pg 27.0-32.0 [facility] Work Phone: Nucleated RBC/100 WBC (Bld) [Ratio] 0 % 0-5 [facility] Work Phone: MCHC Auto (RBC) [Mass/Vol]on 07-23-2021 MCHC (RBC) [Mass/Vol] 31.9 g/dL 32-36 [facility] Work Phone: No Panel Informationon 07-23 Estimated GFR (MDRD) Amer 112 mL/min >60 [facility] Work Phone: Comment on above: GFR Calc Estimated GFR (MDRD) Non-Af Amer 92 mL/min >60 [facility] Work Phone: Comment on above: Non- GFR Calc Platelets bldon 07-23-2021 Platelets (Bld) [#/Vol] 178 10*3/uL 150-450 [facility] Work Phone: Serum or plasma calcium yonatan urement (mass/volume)on 07-23-2021 Calcium [Mass/Vol] 8.9 mg/dL 8.5-10.1 [facility] Work Phone: Serum or plasma creatinine m easurement (mass/volume)on 07-23-2021 Creatinine [Mass/Vol] 0.65 mg/dL 0.55-1.02 [facility] Work Phone: Comment on above: The validity of the calculated GFR & GFRAA in patients over 70 years has not been determined. Clinical correlation is essential. Serum or plasma urea nitroge n measurement (mass/volume)on 07-23-2021 Urea nitrogen [Mass/Vol] 14 mg/dL 7-18 [facility] Work Phone: Thin prep Papanicolaou smear with manual screeningon 07-23-2021 Thin prep Papanicolaou smear with manual screening 6 5-15 [facility] Work Phone: Absolute lymphocyte counton 07-16-2021 Lymphocytes Auto (Unsp spec) [#/Vol] 1.54 10*3/uL 0.83-4.51 [facility] Work Phone: Basophil percentageon 2021 Basophils/100 WBC (Bld) 0.6 % 0-1 [facility] Work Phone: Chloride [Moles/Vol] 109 mmol/L 98-107 [facility] Work Phone: Eosinophils/100 WBC (Bld) 2.5 % 0-5 [facility] Work Phone: Glucose [Mass/Vol] 66 mg/dL 74-106 [facility] Work Phone: Neutrophils (Bld) [#/Vol] 4.2 10*3/uL 2.0-7.7 [facility] Work Phone: Neutrophils/100 WBC (Bld) 63.4 % 47-70 [facility] Work Phone: Potassium [Moles/Vol] 4.0 mmol/L 3.5-5.1 [facility] Work Phone: Sodium [Moles/Vol] 141 mmol/L 136-145 [facility] Work Phone: WBC (Bld) [#/Vol] 6.7 10*3/uL 4.4-11.0 [facility] Work Phone: Blood erythrocytes count (nu mber/volume)on 07-16-2021 RBC (Bld) [#/Vol] 3.05 10*6/uL 4.2-5.4 [facility] Work Phone: Blood hemoglobin measurement (mass/volume)on 07-16-2021 Hemoglobin (Bld) [Mass/Vol] 9.1 g/dL 12.0-15.0 [facility] Work Phone: Blood lymphocytes/100 leukoc yteson 07-16-2021 Lymphocytes/100 WBC (Bld) 23.1 % 19-41 [facility] Work Phone: Blood monocytes/100 leukocyt eson 07-16-2021 Monocytes/100 WBC (Bld) 10.3 % 0-10 [facility] Work Phone: [phone] Blood platelet mean volumeon 07-16-2021 Platelet mean volume (Bld) [Entitic vol] 9.7 fL 6.2-12.0 [facility] Work Phone: [phone] Determination of erythrocyte mean corpuscular volume (MCV)on 07-16-2021 MCV (RBC) [Entitic vol] 95.4 fL 81-99 [facility] Work Phone: Hematocrit Auto (Bld) [Volum e fraction]on 07-16-2021 Hematocrit (Bld) [Volume fraction] 29.1 % 37-47 [facility] Work Phone: [phone] INR in Blood by Coagulation assayon 07-16-2021 INR Coag (Bld) [Relative time] 1.8 {INR} [facility] Work Phone: [phone] Laboratory - Chemistry and C hemistry - challengeon 07-16-2021 CO2 [Moles/Vol] 27.0 mmol/L 21.0-32.0 [facility] Work Phone: [phone] Urea nitrogen/Creatinine [Mass ratio] 25.0 mg/mg 10-20 [facility] Work Phone: [phone] Laboratory - Coagulationon 0 07-16-2021 PT Coag (PPP) [Time] 20.7 s 11.7-14.9 [facility] Work Phone: [phone] Laboratory - Hematology and Cell countson 07-16-2021 Erythrocyte distribution width (RBC) [Entitic vol] 60.8 fL 35.1-43.9 [facility] Work Phone: [phone] Erythrocyte distribution width (RBC) [Ratio] 17.3 % 11.6-14.6 [facility] Work Phone: Immature granulocytes/100 WBC (Bld) 0.100 % 0.0-0.9 [facility] Work Phone: [phone] Comment on above: IG% - Immature Granu locytes (promyelocytes, myelocytes and metamyelocytes) > 1% indicates that a LEFT SHIFT is Present. MCH (RBC) [Entitic mass] 29.8 pg 27.0-32.0 [facility] Work Phone: Nucleated RBC/100 WBC (Bld) [Ratio] 0 % 0-5 [facility] Work Phone: MCHC Auto (RBC) [Mass/Vol]on 07-16-2021 MCHC (RBC) [Mass/Vol] 31.3 g/dL 32-36 [facility] Work Phone: No Panel Informationon 07-16 Estimated GFR (MDRD) Amer 122 mL/min >60 [facility] Work Phone: Comment on above: GFR Calc Estimated GFR (MDRD) Non-Af Amer 101 mL/min >60 [facility] Work Phone: Comment on above: Non- GFR Calc Thyroid Stimulating Hormone (TSH) 2.10 uIU/mL 0.358-3.74 [facility] Work Phone: Platelets bldon 07-16-2021 Platelets (Bld) [#/Vol] 228 10*3/uL 150-450 [facility] Work Phone: Serum or plasma calcium yonatan urement (mass/volume)on 07-16-2021 Calcium [Mass/Vol] 9.0 mg/dL 8.5-10.1 [facility] Work Phone: Serum or plasma creatinine m easurement (mass/volume)on 07-16-2021 Creatinine [Mass/Vol] 0.60 mg/dL 0.55-1.02 [facility] Work Phone: Comment on above: The validity of the calculated GFR & GFRAA in patients over 70 years has not been determined. Clinical correlation is essential. Serum or plasma urea nitroge n measurement (mass/volume)on 07-16-2021 Urea nitrogen [Mass/Vol] 15 mg/dL 7-18 [facility] Work Phone: Thin prep Papanicolaou smear with manual screeningon 07-16-2021 Thin prep Papanicolaou smear with manual screening 5 5-15 [facility] Work Phone: Absolute lymphocyte counton 07-13-2021 Lymphocytes Auto (Unsp spec) [#/Vol] 1.70 10*3/uL 0.83-4.51 [facility] Work Phone: [phone] Basophil percentageon 2021 Basophils/100 WBC (Bld) 0.7 % 0-1 [facility] Work Phone: [phone] Cholesterol [Mass/Vol] 113 mg/dL <200 [facility] Work Phone: Comment on above: <200 mg/dL Desirable 200-240 mg/dL Borderline >240 mg/dL High Risk Eosinophils/100 WBC (Bld) 2.9 % 0-5 [facility] Work Phone: [phone] Neutrophils (Bld) [#/Vol] 5.5 10*3/uL 2.0-7.7 [facility] Work Phone: [phone] Neutrophils/100 WBC (Bld) 65.5 % 47-70 [facility] Work Phone: Triglyceride [Mass/Vol] 95 mg/dL <199 [facility] Work Phone: Comment on above: The drugs N-Acetylcy steine and Metamizole may falsely depress this assay.Serum Triglycerides Reference Interval Normal <150 mg/dL Borderline high 150 - 199 mg/dL High 200 - 499 mg/dL Very High > or = 500 mg/dL WBC (Bld) [#/Vol] 8.4 10*3/uL 4.4-11.0 [facility] Work Phone: Blood erythrocytes count (nu mber/volume)on 07-13-2021 RBC (Bld) [#/Vol] 3.14 10*6/uL 4.2-5.4 [facility] Work Phone: Blood hemoglobin measurement (mass/volume)on 07-13-2021 Hemoglobin (Bld) [Mass/Vol] 9.4 g/dL 12.0-15.0 [facility] Work Phone: Blood lymphocytes/100 leukoc yteson 07-13-2021 Lymphocytes/100 WBC (Bld) 20.3 % 19-41 [facility] Work Phone: Blood monocytes/100 leukocyt eson 07-13-2021 Monocytes/100 WBC (Bld) 10.0 % 0-10 [facility] Work Phone: Blood platelet mean volumeon 07-13-2021 Platelet mean volume (Bld) [Entitic vol] 9.7 fL 6.2-12.0 [facility] Work Phone: Determination of erythrocyte mean corpuscular volume (MCV)on 07-13-2021 MCV (RBC) [Entitic vol] 94.6 fL 81-99 [facility] Work Phone: Hematocrit Auto (Bld) [Volum e fraction]on 07-13-2021 Hematocrit (Bld) [Volume fraction] 29.7 % 37-47 [facility] Work Phone: INR in Blood by Coagulation assayon 07-13-2021 INR Coag (Bld) [Relative time] 1.4 {INR} [facility] Work Phone: Laboratory - Chemistry and C hemistry - challengeon 07-13-2021 Magnesium [Mass/Vol] 2.2 mg/dL 1.6-2.6 [facility] Work Phone: Laboratory - Coagulationon 0 07-13-2021 PT Coag (PPP) [Time] 16.4 s 11.7-14.9 [facility] Work Phone: Laboratory - Hematology and Cell countson 07-13-2021 Erythrocyte distribution width (RBC) [Entitic vol] 58.6 fL 35.1-43.9 [facility] Work Phone: Erythrocyte distribution width (RBC) [Ratio] 17.2 % 11.6-14.6 [facility] Work Phone: Immature granulocytes/100 WBC (Bld) 0.600 % 0.0-0.9 [facility] Work Phone: Comment on above: IG% - Immature Granu locytes (promyelocytes, myelocytes and metamyelocytes) > 1% indicates that a LEFT SHIFT is Present. MCH (RBC) [Entitic mass] 29.9 pg 27.0-32.0 [facility] Work Phone: Nucleated RBC/100 WBC (Bld) [Ratio] 0 % 0-5 [facility] Work Phone: MCHC Auto (RBC) [Mass/Vol]on 07-13-2021 MCHC (RBC) [Mass/Vol] 31.6 g/dL 32-36 [facility] Work Phone: No Panel Informationon 07-13 Thyroid Stimulating Hormone (TSH) 3.09 uIU/mL 0.358-3.74 [facility] Work Phone: Platelets bldon 07-13-2021 Platelets (Bld) [#/Vol] 240 10*3/uL 150-450 [facility] Work Phone: Serum or plasma cholesterol in HDL measurement (mass/volume)on 07-13-2021 Cholesterol in HDL [Mass/Vol] 26 mg/dL >40 [facility] Work Phone: Comment on above: The drugs N-Acetylcy steine and Metamizole may falsely depress this assay. Reference Range HDL <40 mg/dL Low HDL Cholesterol HDL >or= 60 mg/dL High HDL Cholesterol Serum or plasma cholesterol in VLDL measurement (mass/volume)on 07-13-2021 Cholesterol in VLDL [Mass/Vol] 19 mg/dL 5-40 [facility] Work Phone: Serum or plasma low density lipoprotein (LDL) cholesterol measurement (mass/volume)on 07-13-2021 Cholesterol in LDL [Mass/Vol] 68 mg/dL 0-130 [facility] Work Phone: Serum or plasma transthyreti n measurement (mass/volume)on 07-13-2021 Prealbumin [Mass/Vol] 11.5 mg/dL 20.0-40.0 [facility] Work Phone: Whole blood hemoglobin A1c/t otal hemoglobin ratio (mass fraction)on 07-13-2021 HbA1c (Bld) [Mass fraction] 5.0 % 3.8-5.6 [facility] Work Phone: Comment on above: Normal < 5.7 % Predi abetic 5.7 - 6.4 % Diabetic >or= 6.5 % Please note range changes. HBV surface Ab IA Ql (S)on 0 07-05-2021 HBV surface Ag Ql (S) Negative Negative [facility] HEP A AB IGMon 07-05-2021 HAV IgM Ql (S) Negative Negative [facility] HEP B CORE AB IGMon 07-06-19 HBV core IgM Ql (S) Negative Negative [facility] HEP C AB IA W/CONF SCRNon HCV Ab Ql (S) Negative Negative [facility] Absolute lymphocyte counton 07-03-2021 Lymphocytes Auto (Unsp spec) [#/Vol] 0.96 10*3/uL 0.83-4.51 [facility] Work Phone: Basophil percentageon 2021 Basophil percentage 5-10 SEEN /hpf 0-5 [facility] Work Phone: Basophils/100 WBC (Bld) 0.4 % 0-1 [facility] Work Phone: Bilirubin [Mass/Vol] 2.30 mg/dL 0.20-1.00 [facility] Work Phone: Comment on above: For patients on eltr ombopag therapy, use of Dimension Walker TBIL is not recommended. Chloride [Moles/Vol] 106 mmol/L 98-107 [facility] Work Phone: Eosinophils/100 WBC (Bld) 1.4 % 0-5 [facility] Work Phone: Glucose [Mass/Vol] 114 mg/dL 74-106 [facility] Work Phone: Comment on above: Fasting Glucose resu lt from 100 to 125 mg/dL suggests IMPAIRED HOMEOSTASIS per A.D.A. criteria. Neutrophils (Bld) [#/Vol] 7.5 10*3/uL 2.0-7.7 [facility] Work Phone: Neutrophils/100 WBC (Bld) 77.6 % 47-70 [facility] Work Phone: Potassium [Moles/Vol] 4.0 mmol/L 3.5-5.1 [facility] Work Phone: Protein [Mass/Vol] 7.5 g/dL 6.4-8.2 [facility] Work Phone: Sodium [Moles/Vol] 137 mmol/L 136-145 [facility] Work Phone: WBC (Bld) [#/Vol] 9.7 10*3/uL 4.4-11.0 [facility] Work Phone: [phone] Bilirubin Test strip Ql (U)o n 07-03-2021 Bilirubin Ql (U) Negative Negative [facility] Work Phone: Blood erythrocytes count (nu mber/volume)on 07-03-2021 RBC (Bld) [#/Vol] 3.10 10*6/uL 4.2-5.4 [facility] Work Phone: [phone] Blood hemoglobin measurement (mass/volume)on 07-03-2021 Hemoglobin (Bld) [Mass/Vol] 9.3 g/dL 12.0-15.0 [facility] Work Phone: Blood lymphocytes/100 leukoc yteson 07-03-2021 Lymphocytes/100 WBC (Bld) 9.9 % 19-41 [facility] Work Phone: Blood monocytes/100 leukocyt eson 07-03-2021 Monocytes/100 WBC (Bld) 10.2 % 0-10 [facility] Work Phone: Blood platelet mean volumeon 07-03-2021 Platelet mean volume (Bld) [Entitic vol] 9.2 fL 6.2-12.0 [facility] Work Phone: [phone] Determination of erythrocyte mean corpuscular volume (MCV)on 07-03-2021 MCV (RBC) [Entitic vol] 94.2 fL 81-99 [facility] Work Phone: [phone] Direct bilirubinon 2 Bilirubin.direct [Mass/Vol] 1.82 mg/dL 0.00-0.30 [facility] Work Phone: [phone] Hematocrit Auto (Bld) [Volum e fraction]on 07-03-2021 Hematocrit (Bld) [Volume fraction] 29.2 % 37-47 [facility] Work Phone: [phone] INR in Blood by Coagulation assayon 07-03-2021 INR Coag (Bld) [Relative time] 3.6 {INR} [facility] Work Phone: [phone] Ketones Test strip Ql (U)on 07-03-2021 Ketones Ql (U) Negative Negative [facility] Work Phone: [phone] Laboratory - Chemistry and C hemistry - challengeon 07-03-2021 ALP [Catalytic activity/Vol] 143 U/L 45-117 [facility] Work Phone: ALT [Catalytic activity/Vol] 49 U/L 13-56 [facility] Work Phone: [phone] CO2 [Moles/Vol] 25.0 mmol/L 21.0-32.0 [facility] Work Phone: [phone] Globulin (S) [Mass/Vol] 4.9 g/dL 2.2-4.2 [facility] Work Phone: [phone] Lipase [Catalytic activity/Vol] 260 U/L 73-393 [facility] Work Phone: [phone] Urea nitrogen/Creatinine [Mass ratio] 12.9 mg/mg 10-20 [facility] Work Phone: [phone] Laboratory - Coagulationon 0 07-03-2021 PT Coag (PPP) [Time] 35.3 s 11.7-14.9 [facility] Work Phone: [phone] Laboratory - Hematology and Cell countson 07-03-2021 Erythrocyte distribution width (RBC) [Entitic vol] 54.8 fL 35.1-43.9 [facility] Work Phone: Erythrocyte distribution width (RBC) [Ratio] 15.9 % 11.6-14.6 [facility] Work Phone: Immature granulocytes/100 WBC (Bld) 0.500 % 0.0-0.9 [facility] Work Phone: Comment on above: IG% - Immature Granu locytes (promyelocytes, myelocytes and metamyelocytes) > 1% indicates that a LEFT SHIFT is Present. MCH (RBC) [Entitic mass] 30.0 pg 27.0-32.0 [facility] Work Phone: Nucleated RBC/100 WBC (Bld) [Ratio] 0 % 0-5 [facility] Work Phone: MCHC Auto (RBC) [Mass/Vol]on 07-03-2021 MCHC (RBC) [Mass/Vol] 31.8 g/dL 32-36 [facility] Work Phone: Mucus LM Ql (Urine sed)on Mucus Ql (Urine sed) 0 SEEN /hpf [facility] Work Phone: Nitrite Test strip Ql (U)on 07-03-2021 Nitrite Ql (U) Negative Negative [facility] Work Phone: No Panel Informationon 07-03 Estimated Creatinine Clearance Calc 46.12 ml/min [facility] Work Phone: Estimated GFR (MDRD) Amer 81 mL/min >60 [facility] Work Phone: Comment on above: GFR Calc Estimated GFR (MDRD) Non-Af Amer 67 mL/min >60 [facility] Work Phone: Comment on above: Non- GFR Calc Platelets bldon 07-03-2021 Platelets (Bld) [#/Vol] 160 10*3/uL 150-450 [facility] Work Phone: Protein Test strip Ql (U)on 07-03-2021 Protein Ql (U) 15 mg/dl Negative [facility] Work Phone: Serum or plasma albumin yonatan urement (mass/volume)on 07-03-2021 Albumin [Mass/Vol] 2.6 g/dL 3.2-5.0 [facility] Work Phone: Serum or plasma calcium yonatan urement (mass/volume)on 07-03-2021 Calcium [Mass/Vol] 8.7 mg/dL 8.5-10.1 [facility] Work Phone: Serum or plasma creatinine m easurement (mass/volume)on 07-03-2021 Creatinine [Mass/Vol] 0.85 mg/dL 0.55-1.02 [facility] Work Phone: Comment on above: The validity of the calculated GFR & GFRAA in patients over 70 years has not been determined. Clinical correlation is essential. Serum or plasma urea nitroge n measurement (mass/volume)on 07-03-2021 Urea nitrogen [Mass/Vol] 11 mg/dL 7-18 [facility] Work Phone: Squamous epithelial cells de tection in urine sediment by light microscopyon 07-03-2021 Epithelial cells.squamous LM Ql (Urine sed) 0 SEEN /hpf 5-10 [facility] Work Phone: Thin prep Papanicolaou smear with manual screeningon 07-03-2021 Thin prep Papanicolaou smear with manual screening 87 U/L 15-37 [facility] Work Phone: Thin prep Papanicolaou smear with manual screening 6 5-15 [facility] Work Phone: Urine blood detectionon 06-15 RBC Ql (U) 10 /ul Negative [facility] Work Phone: RBC Ql (U) 0-5 SEEN /hpf 0-5 [facility] Work Phone: Urine clarityon 07-03-2021 Clarity (U) Clear Clear [facility] Work Phone: Urine color determinationon 07-03-2021 Color (U) Yellow Yellow [facility] Work Phone: Urine glucose detectionon Glucose Ql (U) Normal mg/dl Normal [facility] Work Phone: Urine leukocyte esterase det ection by dipstickon 07-03-2021 Leukocyte esterase Test strip Ql (U) 500 /ul Negative [facility] Work Phone: Urine pHon 07-03-2021 pH (U) 7.0 [pH] 5.0 - 8.0 [facility] Work Phone: Urine sediment bacteria coun t by microscopy (number/high power field)on 07-03-2021 Bacteria LM.HPF (Urine sed) [#/Area] 2 /[HPF] None Seen [facility] Work Phone: Urine specific gravity measu rementon 07-03-2021 Specific gravity (U) [Rel density] 1.010 1.002-1.030 [facility] Work Phone: Urobilinogen Auto test strip Ql (U)on 07-03-2021 Urobilinogen Ql (U) 1 mg/dl Normal [facility] Work Phone: XR Chest PA and Lateralon IMPRESSION: Mild bibasilar atelectasis. Subtle infection could appear similar but is thought less likely. Costume Shop Manager: GRANT Transcribe Date/Time: May 17 2021 6:05P Dictated by : SHAN KAY MD This examination was interpreted and the report reviewed and electronically signed by: SHAN KAY MD on May 17 2021 6:07PM [facility] DIVISION OF RADIOLOGY * * *Final [...] abnormality. DIVISION OF RADIOLOGY Provider, Sj Fatou [facility] - 05/17/2021 * * *Final Report* [...] appear similar but is thought less likely. Costume Shop Manager: GRANT Transcribe Date/Time: May 17 2021 6:05P Dictated by : SHAN KAY MD This examination was interpreted and the report reviewed and electronically signed by: SHAN KAY MD on May 17 2021 6:07PM EST [facility] Radiology Study observation (narrative) [facility] XR Chest PA and LateralOrder ed By: Ccf Provider on 05-17-2021 [facility] Basic Metabolic Panlon 01-14 Anion gap [Moles/Vol] 7 mmol/L Low 9-18 [facility] Comment on above: Performed By: #### M G1, BMP, CBC ####[facility] Efipnexxck3346 [phone] Calcium [Mass/Vol] 8.5 mg/dL Normal 8.5-10.2 [facility] Comment on above: Performed By: #### M G1, BMP, CBC ####[facility] [address] [place] [address] Chloride [Moles/Vol] 110 mmol/L High 97-105 [facility] Comment on above: Performed By: #### M G1, BMP, CBC ####[facility] [address] [place] [phone] CO2 [Moles/Vol] 23 mmol/L Normal 22-30 [facility] Comment on above: Performed By: #### M G1, BMP, CBC ####[facility] [address] [place] [address] Creatinine [Mass/Vol] 0.85 mg/dL Normal 0.58-0.96 [facility] Comment on above: Performed By: #### M G1, BMP, CBC ####[facility] [address] [place] [address] eGFR- Amer. >60 Normal [facility] Comment on above: Performed By: #### M G1, BMP, CBC ####[facility] [address] [place] [address] eGFR-All Other Races >60 Normal [facility] Comment on above: Result Comment: eGFR [...] Performed By: #### M G1, BMP, CBC ####[facility] [address] [place] [phone] Glucose [Mass/Vol] 94 mg/dL Normal 74-99 [facility] Comment on above: Result Comment: The [employer] Diabetes Association (ADA) provides guidance for cutoff [...] Standards of Medical Care in Diabetes 2016, [place] Diabetes [employer]. Diabetes Care. 2016.39(Suppl 1). Performed By: #### M BMP, CBC ####[facility] [address] [place] [address] Potassium [Moles/Vol] 3.8 mmol/L Normal 3.7-5.1 [facility] Comment on above: Performed By: #### M , BMP, CBC ####[place] [address] Sodium [Moles/Vol] 140 mmol/L Normal 136-144 [facility] Comment on above: Performed By: #### M , BMP, CBC ####[place] [address] Urea nitrogen [Mass/Vol] 10 mg/dL Normal 7-21 [facility] Comment on above: Performed By: #### M , BMP, CBC ####[place] [address] CBCon 01-14-2021 Absolute nRBC <0.01 Normal <0.01 [facility] Comment on above: Performed By: #### M , BMP, CBC ####[place] [address] Erythrocyte distribution width (RBC) [Ratio] 16.5 % High 11.5-15.0 [facility] Comment on above: Performed By: #### M , BMP, CBC ####[place] [address] Hematocrit (Bld) [Volume fraction] 25.5 % Low 36.0-46.0 [facility] Comment on above: Performed By: #### M , BMP, CBC ####[place] [address] Hemoglobin (Bld) [Mass/Vol] 8.4 g/dL Low 11.5-15.5 [facility] Comment on above: Performed By: #### M G1, BMP, CBC ####[facility] [address] [place] [phone] MCH 34.7 pG High 26.0-34.0 [facility] Comment on above: Performed By: #### Violet Vanna BMP, CBC ####[facility] Vmlueofsji3705 [phone] MCHC (RBC) [Mass/Vol] 32.9 g/dL Normal 30.5-36.0 [facility] Comment on above: Performed By: #### M STEPHAN Prabhakar, CBC ####[facility] [address] [place] [phone] MCV (RBC) [Entitic vol] 105.4 fL High 80.0-100.0 [facility] Comment on above: Performed By: #### Violet STEPHAN Prabhakar, CBC ####[facility] [address] [place] [phone] Platelet mean volume (Bld) [Entitic vol] 9.8 fL Normal 9.0-12.7 [facility] Comment on above: Performed By: #### Violet STEPHAN Prabhakar, CBC ####[facility] Hdqcearmga6643 [phone] Platelets (Bld) [#/Vol] 109 10*3/uL Low 150-400 [facility] Comment on above: Performed By: #### M STEPHAN Prabhakar, CBC ####[facility] [address] [place] [phone] RBC (Bld) [#/Vol] 2.42 10*6/uL Low 3.90-5.20 [facility] Comment on above: Performed By: #### M STEPHAN Prabhakar, CBC ####[facility] Mrgbhcnrdo3697 [phone] WBC (Bld) [#/Vol] 5.89 10*3/uL Normal 3.70-11.00 [facility] Comment on above: Performed By: #### Violet STEPHAN Prabhakar, CBC ####[facility] [address] [place] [phone] CNDSon 01-14-2021 CNDS HNO ID: [id number] Author: Wendy Bonilla DO Service: Hospital Medicine [...] DO Consulting: Johnny Turk MD Primary Service: [place] [address] REASON FOR HOSPITALIZATION: Rectal Bleed DIAGNOSIS: Principal [...] were placed as previously ordered by her riding coach to follow up on this and pending at time of discharge. She was provided with referral and number for [facility] and advised to call for an appointment. 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 She was discharged home in stable condition. [...] FOLLOW-UP: [facility], Follow up REHEAT FURNACE OPERATOR for endometrial thickening. Follow up Dr. Turk [...] Resume pre-hospital ac (more content not included)... [facility] Magnesiumon 01-14-2021 Magnesium [Mass/Vol] 2.0 mg/dL Normal 1.7-2.3 [facility] Comment on above: Performed By: #### M G1, BMP, CBC ####[facility] Imwiwvgysk4280 [phone] NURSING PROGon 01-14-2021 NURSING PROG HNO ID: [id number] Author: Albania Perez RN Service: ? Author Type: Registered Nurse Type: Nursing Progress Note Filed: 01/14/2021 5:01 PM Note Text: Nursing Progress Note Patient Name: Christian Landrum Patient Location: [place] [address] [address] Daily Note:[address] [place], [place] home instructions given-verbalized understanding. This note was completed by: Albania Perez [facility] ALLIED HEALTHon 01-13-2021 ALLIED HEALTH HNO ID: [id number] Author: Margy Walker RDMS Service: Radiology Author Type: Merchandise Planner Type: Allied Health Filed: 01/13/2021 3:05 PM [...] RDMS January 13, 2021 3:05 PM Normal [facility] Basic Metabolic Panlon 01-13 Anion gap [Moles/Vol] 8 mmol/L Low 9-18 [facility] Comment on above: Performed By: #### P T, BMP, CBC ####[facility] Un[address] [place] [address] Calcium [Mass/Vol] 8.2 mg/dL Low 8.5-10.2 [facility] Comment on above: Performed By: #### P T, BMP, CBC ####[facility] W[address]peji[address] [place] [address] Chloride [Moles/Vol] 106 mmol/L High 97-105 [facility] Comment on above: Performed By: #### P T, BMP, CBC ####[facility] I[address]imdrofj30[address] [place] [address] CO2 [Moles/Vol] 20 mmol/L Low -30 [facility] Comment on above: Performed By: #### P T, BMP, CBC ####[facility] Wz[address]lxv7[address] [place] [address] Creatinine [Mass/Vol] 0.74 mg/dL Normal 0.58-0.96 [facility] Comment on above: Performed By: #### P T, BMP, CBC ####[facility] Urluwrgqeq28[address] [place] [address] eGFR- Amer. >60 [facility] Comment on above: Performed By: #### P T, BMP, CBC ####[facility] [address]as[address]zohh50[address] [place] [address] eGFR-All Other Races >60 Normal [facility] Comment on above: Result Comment: eGFR [...] GFR. Performed By: #### STEPHAN Diaz, CBC ####[facility] [address] [place] [address] Glucose [Mass/Vol] 179 mg/dL High 74-99 [facility] Comment on above: Result Comment: The [employer] Diabetes Association (ADA) provides guidance for cutoff [...] Standards of Medical Care in Diabetes 2016, [place] Diabetes [employer]. Diabetes Care. 2016.39(Suppl 1). Performed By: #### STEPHAN Diaz, CBC ####[place] [address] Potassium [Moles/Vol] 3.8 mmol/L Normal 3.7-5.1 [facility] Comment on above: Performed By: #### STEPHAN Diaz, CBC ####[place] [address] Sodium [Moles/Vol] 134 mmol/L Low 136-144 [facility] Comment on above: Performed By: #### STEPHAN Diaz, CBC ####[place] [address] Urea nitrogen [Mass/Vol] 15 mg/dL Normal 7-21 [facility] Comment on above: Performed By: #### STEPHAN Diaz, CBC ####[place] [address] CBCon 01-13-2021 Absolute nRBC <0.01 Normal <0.01 [facility] Comment on above: Performed By: #### P STEPHAN Mcgowan, CBC ####[facility] [address] [place] [phone] Erythrocyte distribution width (RBC) [Ratio] 16.6 % High 11.5-15.0 [facility] Comment on above: Performed By: #### P T, BMP, CBC ####[facility] [address] [place] [address] Hematocrit (Bld) [Volume fraction] 24.8 % Low 36.0-46.0 [facility] Comment on above: Performed By: #### P T, BMP, CBC ####[facility] [address] [place] [address] Hemoglobin (Bld) [Mass/Vol] 8.4 g/dL Low 11.5-15.5 [facility] Comment on above: Performed By: #### P T, BMP, CBC ####[facility] [address] [place] [address] MCH 35.9 pG High 26.0-34.0 [facility] Comment on above: Performed By: #### P T, BMP, CBC ####[facility] [address] [place] [address] MCHC (RBC) [Mass/Vol] 33.9 g/dL Normal 30.5-36.0 [facility] Comment on above: Performed By: #### P T, BMP, CBC ####[facility] [address] [place] [address] MCV (RBC) [Entitic vol] 106.0 fL High 80.0-100.0 [facility] Comment on above: Performed By: #### P T, BMP, CBC ####[facility] [address] [place] [address] Platelet mean volume (Bld) [Entitic vol] 10.2 fL Normal 9.0-12.7 [facility] Comment on above: Performed By: #### P T, BMP, CBC ####[facility] [address] [place] [address] Platelets (Bld) [#/Vol] 104 10*3/uL Low 150-400 [facility] Comment on above: Performed By: #### P T, BMP, CBC ####[facility] Ny[address] [place] [address] RBC (Bld) [#/Vol] 2.34 10*6/uL Low 3.90-5.20 [facility] Comment on above: Performed By: #### P T, BMP, CBC ####[facility] [address] [place] [phone] WBC (Bld) [#/Vol] 6.11 10*3/uL Normal 3.70-11.00 [facility] Comment on above: Performed By: #### P T, BMP, CBC ####[facility] Lvfltqvboj4470 [phone] CONSULTon 01-13-2021 CONSULT HNO ID: [id number] Author: Johnny Turk MD Service: General Surgery [...] - Arthritis (more content not included)... Normal [facility] Hep B Core Ab, IgMon 021 Hep B Core Ab, IgM Negative Normal Negative [facility] Comment on above: Performed By: #### 5 7021-8 #### [facility] CLIA [id number] [address] Hep B Core Ab,Totalon 2020 Hep B Core Ab,Total Positive Critically abnormal Negative [facility] Comment on above: Result Comment: Resu lt rechecked. Performed By: #### 5 7021-8 #### [facility] CLIA [id number] [address] Hepat.B Vir Ult Qton 021 HBV DNA Ultra Not detected Normal [facility] Comment on above: Result Comment: Refe rence Range: Negative for HBVDNA The linear range of this assay is 10 to 1,000,000,000 IU/mL. Performed By: #### 5 7021-8 #### [facility] CLIA [id number] [address] Hepatitis Be Antibodon 01-13 Hepatitis Be Antibod Negative Normal Negative [facility] Comment on above: Result Comment: This test should only be used in patients with a previously known and/or concurrent positive HBsAg result. Along with HBeAg test, Hepatitis B e antibody test is used for monitoring the natural history of Hepatitis B virus infection and prognostication. Clinical correlation is required. Performed By: #### 5 7021-8 #### [facility] CLIA [id number] [address] Hepatitis Be Antigenon 01-13 Hepatitis Be Antigen Negative Normal Negative [facility] Comment on above: Performed By: #### 5 7021-8 #### [facility] CLIA [id number] [address] Protimeon 01-13-2021 PT INR 2.5 High 0.9-1.3 [facility] Comment on above: Result Comment: Maricruz min K Antagonist (VKA) Therapeutic Range: INR 2 to 3 (Target INR of 2.5) Note: For patients treated with VKA drugs, such as warfarin, the [employer] 2012 Guideline recommends [...] Performed By: #### P STEPHAN Mcgowan, CBC ####[facility] Stygefeigc5199 [address] PT Sec 25.8 sec High 9.7-13.0 [facility] Comment on above: Performed By: #### STEPHAN Diaz, CBC ####[facility] R[address]rtzdmxv[address]51[facility] FEMALE PELVIS TRANSABD LT Don 01-13-2021 FEMALE [...] visualized transvaginally. Trace free fluid Unremarkable adnexa. Costume Shop Manager: GRANT Transcribe Date/Time: Jan 13 2021 6:02P Dictated by : NATA HANEY MD This examination was interpreted and the report reviewed and electronically signed by: NATA HANEY MD on Jan 13 2021 6:07PM EST [id number] [facility] US FEMALE PELVIS TRANSVAGon 01-13-2021 [place] FEMALE [...] visualized transvaginally. Trace free fluid Unremarkable adnexa. Costume Shop Manager: [facility] Transcribe Date/Time: Jan 13 2021 6:02P Dictated by : NATA HANEY MD This examination was interpreted and the report reviewed and electronically signed by: NATA HANEY MD on Jan 13 2021 6:07PM EST [id number] Normal [facility] Urine Cultureon 01-13-2021 Bacteria identified Cx Nom (U) Sp. Request/Comment: - Specimen received in preservative Culture Result - <10,000 CFU/ml Lactose positive gram negative bacilli --> ABNORMAL ALERT Insignificant colony count. No further workup. --> ABNORMAL ALERT <10,000 CFU/ml Normal urogenital cy Critically abnormal [facility] Comment on above: Performed By: #### U RCUL ####[facility] [address] [place], [place] [phone] [place], [place] [phone] APTTon 01-12-2021 aPTT Coag (Bld) [Time] 112.0 s High 23.0-32.4 [facility] Comment on above: Result Comment: Unfr actionated [...] laboratory APTT reagent in use throughout the [facility]. Sample checked for a clot. No call per procedure. 01/12/2021 1541 Performed By: #### C MP, CBCDIF, PTT, MG1, PT ####[facility] [address] [place] [address] CBC and Differentialon 01-12 Abs Baso 0.05 k/uL Normal <0.11 [facility] Comment on above: Performed By: #### C MP, CBCDIF, PTT, MG1, PT ####[place] [address] Abs [place] 0.86 k/uL Normal <0.87 [facility] Comment on above: Performed By: #### C MP, CBCDIF, PTT, MG1, PT ####[place] [address] Abs Neut 5.89 k/uL Normal 1.45-7.50 [facility] Comment on above: Performed By: #### C MP, CBCDIF, PTT, MG1, PT ####[place] [address] Absolute nRBC <0.01 Normal <0.01 [facility] Comment on above: Performed By: #### C MP, CBCDIF, PTT, MG1, PT ####[place] [address] Basophils/100 WBC (Bld) 0.6 % [facility] Comment on above: Performed By: #### C MP, CBCDIF, PTT, MG1, PT ####[place] [address] DTYPE Auto Diff Normal [facility] Comment on above: Performed By: #### C MP, CBCDIF, PTT, MG1, PT ####[place] [address] Eosinophils (Bld) [#/Vol] 0.09 10*3/uL Normal <0.46 [facility] Comment on above: Performed By: #### C MP, CBCDIF, PTT, MG1, PT ####[place] [address] Eosinophils/100 WBC (Bld) 1.0 % [facility] Comment on above: Performed By: #### C MP, CBCDIF, PTT, MG1, PT ####[place] [phone] Erythrocyte distribution width (RBC) [Ratio] 16.4 % High 11.5-15.0 [facility] Comment on above: Performed By: #### C MP, CBCDIF, PTT, MG1, PT ####[facility] [address] [place] [address] Hematocrit (Bld) [Volume fraction] 27.4 % Low 36.0-46.0 [facility] Comment on above: Performed By: #### C MP, CBCDIF, PTT, MG1, PT ####[facility] [address] [place] [address] Hemoglobin (Bld) [Mass/Vol] 9.2 g/dL Low 11.5-15.5 [facility] Comment on above: Performed By: #### C MP, CBCDIF, PTT, MG1, PT ####[place] [address] Lymphocytes (Bld) [#/Vol] 1.89 10*3/uL Normal 1.00-4.00 [facility] Comment on above: Performed By: #### C MP, CBCDIF, PTT, MG1, PT ####[facility] [address] [place] [address] Lymphocytes/100 WBC (Bld) 21.5 % Normal [facility] Comment on above: Performed By: #### C MP, CBCDIF, PTT, MG1, PT ####[facility] [address] [place] [address] MCH 35.1 pG High 26.0-34.0 [facility] Comment on above: Performed By: #### C MP, CBCDIF, PTT, MG1, PT ####[facility] [address] [place] [address] MCHC (RBC) [Mass/Vol] 33.6 g/dL Normal 30.5-36.0 [facility] Comment on above: Performed By: #### C MP, CBCDIF, PTT, MG1, PT ####[facility] [address] [place] [address] MCV (RBC) [Entitic vol] 104.6 fL High 80.0-100.0 [facility] Comment on above: Performed By: #### C MP, CBCDIF, PTT, MG1, PT ####[facility] [address] [place] [address] Monocytes/100 WBC (Bld) 9.8 % Normal [facility] Comment on above: Performed By: #### C MP, CBCDIF, PTT, MG1, PT ####[facility] [address] [place] [address] Neutrophils/100 WBC (Bld) 67.1 % Normal [facility] Comment on above: Performed By: #### C MP, CBCDIF, PTT, MG1, PT ####[place] [address] NRBCs 0.0 /100 WBC Normal 0 [facility] Comment on above: Performed By: #### C MP, CBCDIF, PTT, MG1, PT ####[place] [address] Platelet mean volume (Bld) [Entitic vol] 10.6 fL Normal 9.0-12.7 [facility] Comment on above: Performed By: #### C MP, CBCDIF, PTT, MG1, PT ####[place] [address] Platelets (Bld) [#/Vol] 126 10*3/uL Low 150-400 [facility] Comment on above: Result Comment: No c lot detected. Performed By: #### C MP, CBCDIF, PTT, MG1, PT ####[place] [address] RBC (Bld) [#/Vol] 2.62 10*6/uL Low 3.90-5.20 [facility] Comment on above: Performed By: #### C MP, CBCDIF, PTT, MG1, PT ####[place] [address] WBC (Bld) [#/Vol] 8.78 10*3/uL Normal 3.70-11.00 [facility] Comment on above: Performed By: #### C MP, CBCDIF, PTT, MG1, PT ####[facility] [address] [place] [phone] CT ABD/PEL W IVCONon 021 CT ABD/PEL W IVCON * * *Final Report* * * DATE OF EXAM: Jan 12 2021 4:21PM [facility] 0530 - CT ABD/PEL W IVCON / [...] and/or stent in the RIGHT coronary circulation. Director Of Field Service (topogram) images: No additional findings. IMPRESSION: Acute cystitis. Cirrhotic liver morphology. Cholelithiasis. Abnormal endometrial thickening to 12 mm in this postmenopausal female. Recommend further evaluation with a female pelvic ultrasound on a nonemergent basis. Acuity: Actionable Findings: Female reproductive tract (pelvis, adnexa) Routing code: WH_1 Recommendation: US FEMALE PELVIS NON-OB NON TORSION ([id number]) Time Frame: at the discretion of the clinical team. Costume Shop Manager: PSCYanelis Transcribe Date/Time: Jan 12 2021 4:44P Dictated by : VANESA PRICE DO This examination was interpreted and the report reviewed and electronically signed by: VANESA PRICE DO on Jan 12 2021 5:01PM EST [id number] Normal [facility] Comp Metabolic Panelon 01-12 Albumin [Mass/Vol] 3.4 g/dL Low 3.9-4.9 [facility] Comment on above: Performed By: #### C MP, CBCDIF, PTT, MG1, PT ####[facility] K[address]ym[address]235 [address] ALP [Catalytic activity/Vol] 52 U/L Normal 34-123 [facility] Comment on above: Performed By: #### C MP, CBCDIF, PTT, MG1, PT ####[facility] [address] ALT [Catalytic activity/Vol] 25 U/L Normal 7-38 [facility] Comment on above: Performed By: #### C MP, CBCDIF, PTT, MG1, PT ####[facility] [address] [place] [phone] Anion gap [Moles/Vol] 12 mmol/L Normal 9-18 [facility] Comment on above: Performed By: #### C MP, CBCDIF, PTT, MG1, PT ####[facility] [address] [place] [phone] AST [Catalytic activity/Vol] 59 U/L High 13-35 [facility] Comment on above: Performed By: #### C MP, CBCDIF, PTT, MG1, PT ####[facility] [address] [place] [address] Bilirubin [Mass/Vol] 1.0 mg/dL Normal 0.2-1.3 [facility] Comment on above: Performed By: #### C MP, CBCDIF, PTT, MG1, PT ####[facility] [address] [place] [address] Calcium [Mass/Vol] 8.9 mg/dL Normal 8.5-10.2 [facility] Comment on above: Performed By: #### C MP, CBCDIF, PTT, MG1, PT ####[facility] [address] [place] [address] Chloride [Moles/Vol] 107 mmol/L High 97-105 [facility] Comment on above: Performed By: #### C MP, CBCDIF, PTT, MG1, PT ####[facility] [address] [place] [address] CO2 [Moles/Vol] 21 mmol/L Low 22-30 [facility] Comment on above: Performed By: #### C MP, CBCDIF, PTT, MG1, PT ####[facility] [address] [place] [address] Creatinine [Mass/Vol] 0.67 mg/dL Normal 0.58-0.96 [facility] Comment on above: Performed By: #### C MP, CBCDIF, PTT, MG1, PT ####[facility] [address] [place] [address] eGFR- Amer. >60 Normal [facility] Comment on above: Performed By: #### C MP, CBCDIF, PTT, MG1, PT ####[facility] [address] [place] [address] eGFR-All Other Races >60 Normal [facility] Comment on above: Result Comment: eGFR [...] #### C MP, CBCDIF, PTT, MG1, PT ####[facility] [address] [place] [address] Glucose [Mass/Vol] 92 mg/dL Normal 74-99 [facility] Comment on above: Result Comment: The [place] Diabetes [employer] (ADA) provides guidance for cutoff [...] Standards of Medical Care in Diabetes 2016, [place] [employer]. Diabetes Care. 2016.39(Suppl 1). Performed By: #### C MP, CBCDIF, PTT, MG1, PT ####[facility] [address] [place] [address] Potassium [Moles/Vol] 3.8 mmol/L Normal 3.7-5.1 [facility] Comment on above: Performed By: #### C MP, CBCDIF, PTT, MG1, PT ####[facility] [address] [place], [place] [phone] Protein [Mass/Vol] 6.0 g/dL Low 6.3-8.0 [facility] Comment on above: Performed By: #### C MP, CBCDIF, PTT, MG1, PT ####[facility] [address] [place] [phone] Sodium [Moles/Vol] 140 mmol/L Normal 136-144 [facility] Comment on above: Performed By: #### C MP, CBCDIF, PTT, MG1, PT ####[facility] Rsy[address]qdsyc[address]054 [address] Urea nitrogen [Mass/Vol] 19 mg/dL Normal 10-04 [facility] Comment on above: Performed By: #### C MP, CBCDIF, PTT, MG1, PT ####[facility] [address] [place] [phone] Confirm Blood Typeon 021 ABO/RH(D) Positive [facility] Comment on above: Performed By: #### 5 7021-8 #### [facility] CLIA [id number] [address] [place] [address] [facility] ED NOTEon 01-12-2021 ED NOTE HNO ID: [id number] Author: Anusha Pabon RN Service: ? Author Type: Registered Nurse Type: ED Notes Filed: 01/12/2021 5:50 PM Note Text: Report called to Marbella bruno. [facility] ED NOTE HNO ID: [id number] Author: Anusha Pabon RN Service: ? Author Type: Registered Nurse Type: ED Notes Filed: 01/12/2021 5:38 PM Note Text: 10 min heads up given [facility] ED NOTE HNO ID: [id number] Author: Xavi Hicks, Miguel Angel Service: ? Author Type: [facility] [employer] Department Chair Type: ED Notes Filed: 01/12/2021 12:05 PM Note Text: Complains of black stools since Friday S/P colonoscopy this past Friday. [facility] ED PROV NOTEon 01-12-2021 ED PROV NOTE HNO ID: [id number] Author: Juan Covarrubias MD Service: ? Author [...] of Onset - other ( age 60 OR) Mother hypertension and TB - other (pancreatic [...] grandmother S (more content not included)... Normal [facility] Expedited [id number] 01-13-20 SARS-CoV-2 (COVID-19) RNA DEMARCUS+probe Ql (Unsp spec) UPPER RESPIRATORY TRACT SWAB Normal [facility] Comment on above: Performed By: #### E XCOVD #### [facility] Laboratory [address] [facility] [phone] SARS-CoV-2 (COVID-19) RNA DEMARCUS+probe Ql (Unsp spec) Negative for COVID19 (SARS CoV2) by RT-PCR or equivalent method. Normal Negative for COVID19 (SARS CoV2) by RT-PCR or equivalent method. [facility] Comment on above: Result Comment: This test has been authorized by FDA under an Emergency Use Authorization (EUA). Performed By: #### E XCOVD #### [facility] Laboratory [address] [facility] [phone] HISTORY PHYSICALon HISTORY PHYSICAL HNO ID: [id number] Author: Selma Shepherd DO Service: Hospital Medicine Author Type: Physician Type: HANDP Filed: 01/12/2021 8:56 PM Note Text: HOSPITAL MEDICINE HISTORY AND PHYSICAL PCP: Galina Iraheta MD NIGHT AND WEEKEND COVERAGE: [facility]: Days: [phone], please page attending physician. Nights: [phone], please page [facility] Night coverage pager [phone]. SUBJECTIVE Chief Complaint: Rectal bleeding HPI: Ms. [...] 10/06/2007 Right (more content not included)... Normal [facility] Magnesiumon 01-12-2021 Magnesium [Mass/Vol] 2.0 mg/dL Normal 1.7-2.3 [facility] Comment on above: Performed By: #### C MP, CBCDIF, PTT, MG1, PT ####[facility] [address] [place] [phone] NT Pro BNPon 01-12-2021 PRO B Natr Peptide 116 pg/mL Normal <450 [facility] Comment on above: Performed By: #### N TBNP ####[facility] [address] [place] [phone] NURSING PROGon 01-12-2021 NURSING PROG HNO ID: [id number] Author: Albania Perez RN Service: ? Author Type: Registered Nurse Type: Nursing Progress Note Filed: 01/12/2021 6:33 PM Note Text: Nursing Progress Note Patient Name: Christian Landrum Patient Location: [facility]/[id number] Daily Note:1830-received pt from ED,no acute distress noted,on RA,oriented to the room,call light within reach. This note was completed by: Albania Bess [facility] Protimeon 01-12-2021 PT INR 2.9 High 0.9-1.3 [facility] Comment on above: Result Comment: Maricruz min K Antagonist (VKA) Therapeutic Range: INR 2 to 3 (Target INR of 2.5) Note: For patients treated with VKA drugs, such as warfarin, the [employer] 2012 Guideline recommends [...] Chest 2012, 141:7S-47S Geri RA et al. [facility] 2017, 70: 252-289 Performed By: #### C MP, CBCDIF, PTT, MG1, PT ####[facility] [address] [place] [phone] PT Sec 28.7 sec High 9.7-13.0 [facility] Comment on above: Performed By: #### C MP, CBCDIF, PTT, MG1, PT ####[facility] [address] [place] [phone] Troponin Ton 01-12-2021 Troponin T <0.010 Normal 0.000-0.029 [facility] Comment on above: Performed By: #### T NT ####[facility] [address] [place] [address] Type and Screenon 01-12-2021 ABO/RH(D) Positive Normal [facility] Comment on above: Performed By: #### 5 7021-8 #### [facility] CLIA [id number] [address] [place], [place] [address] [place] [address] Urinalysison 01-12-2021 Bilirubin, Urine Negative Normal Negative [facility] Comment on above: Performed By: #### U A, UAMIC ####[facility] [address] [place] [address] Clarity (U) Clear Normal Clear [facility] Comment on above: Performed By: #### U A, UAMIC ####[facility] [address] [place] [address] Color (U) Yellow Normal Yellow [facility] Comment on above: Performed By: #### U A, UAMIC ####[facility] [address] [place] [address] Glucose Ql (U) Negative Normal Negative [facility] Comment on above: Performed By: #### U A, UAMIC ####[facility] [address] [place] [address] Hemoglobin/Blood,Ur 2+ Critically abnormal Negative [facility] Comment on above: Performed By: #### U A, UAMIC ####[facility] [address] [place] [address] Ketones Ql (U) Negative Normal Negative [facility] Comment on above: Performed By: #### U A, UAMIC ####[facility] [address] [place] [address] Leukest 2+ Critically abnormal Negative [facility] Comment on above: Performed By: #### U A, UAMIC ####[facility] [address] [place] [address] Nitrite Ql (U) Negative Normal Negative [facility] Comment on above: Performed By: #### U A, UAMIC ####[facility] [address] [place] [address] pH (U) 6.5 [pH] Normal 5.0-8.0 [facility] Comment on above: Performed By: #### U A UAMIC ####[facility] [address] [place] [address] Protein, Urine Negative Normal Negative [facility] Comment on above: Performed By: #### U A UAMIC ####[facility] [address] [place] [address] Specific Only, Ur 1.010 Normal 1.005-1.030 [facility] Comment on above: Performed By: #### U A UAMIC ####[facility] Tb[address]itmy[address]109 [place] [address] Urobilinogen Qn (U) 0.2 {Valentín'U}/dL Normal 0.2-1.0 [facility] Comment on above: Performed By: #### U A UAMIC ####[facility] [address] [place] [address] Urine Microscopic (FOR LAB U SE ONLY)on 01-12-2021 Cast SEE COMMENT Normal 0 [facility] Comment on above: Result Comment: 0 Performed By: #### U A UAMIC ####[facility] [address] [place] [address] Epithelial cells LM Ql (Urine sed) SEE COMMENT Normal [facility] Comment on above: Result Comment: 0-5 Squamous Epithelial Cells Performed By: #### U A UAMIC ####[facility] [address] [place] [address] RBC 5-10 Critically abnormal 0-3 [facility] Comment on above: Performed By: #### U A UAMIC ####[facility] [address] [place] [address] WBC 5-10 Critically abnormal 0-5 [facility] Comment on above: Performed By: #### U A UAMIC ####[facility] [address] [place] [address] NM CARDIAC PERF STRESS/PHARM on 01-10-2021 NM CARDIAC PERF STRESS/PHARM * * *Final Report* * * DATE OF EXAM: Jan 10 2021 11:30AM HEATHER 0006 - NM CARDIAC PERF STRESS/PHARM / PROCEDURE REASON: multiple diagnoses * * * * Physician Interpretation * * * * Stress Tax Attorney Report: [facility] Date of service: 01/10/2021 9:33:53 AM Supervising [...] 60 minutes later. See administered doses below. [facility] Date of service: 01/10/2021 9:33:53 AM Indication: [...] unchanged with stress. Final Stress ECG Report: [facility] Date of service: 01/10/2021 9:33:53 AM Ordering physician: CECILIO IBARRA Specialist: Vira Oodnnell English Language Arts Teacher: Lisa Lemus Stress ECG interpreting physician: Amari [...] 125/48 mmHg. The double product achieved was [id number]. Indication: Dyspnea on exertion Medical History and [...] 52 +----+--+---+---+ +-----+ (more content not included)... [facility] 01-09-2021 [facility] Telephone (CDLBME) CHRISTIAN LANDRUM ([id number]) 1935 F Date Time Provider Department 01/09/21 [...] Fully Assessed Reason for Visit: Reminder Call [[id number]] Prescriptions as of 01/09/2021 - omeprazole (PRILOSEC) [...] BY MOUTH EVERY DAY - glucosamine/msm/chondroitin A (UTEJQLNHDNW-EOEUXP-RSS ORAL) Take 1 capsule by mouth once [...] mg injection (BENADRYL) - benzocaine 20% 1 [place] (TOPEX) Meds Comments as of 12/27/2016: Problem List As Of Date 01/09 (more content not included)... Normal [facility] XR Chest PA and Lateralon IMPRESSION: Mild bibasilar atelectasis/scarring. Costume Shop Manager: GRANT Transcribe Date/Time: Nov 27 2020 4:34P Dictated by : DUC ZHONG MD This examination was interpreted and the report reviewed and electronically signed by: DUC ZHONG MD on Nov 27 2020 4:35PM [facility] DIVISION OF RADIOLOGY * * *Final [...] the thoracic spine. DIVISION OF RADIOLOGY Provider, [facility] Fatou [facility] - 11/27/2020 * * *Final Report* [...] thoracic spine. IMPRESSION IMPRESSION: Mild bibasilar atelectasis/scarring. Costume Shop Manager: PSCB Transcribe Date/Time: Nov 27 2020 4:34P Dictated by : DUC ZHONG MD This examination was interpreted and the report reviewed and electronically signed by: DUC ZHONG MD on Nov 27 2020 4:35PM EST [facility] Radiology Study observation (narrative) [facility] XR Chest PA and LateralOrder ed By: Ccf Provider on 11-27-2020 [facility] XR Chest PA and Lateralon IMPRESSION: No acute radiographic abnormality. Costume Shop Manager: PSC Transcribe Date/Time: May 05 2020 3:09P [...] tissues: Unremarkable. DIVISION OF RADIOLOGY Provider, [facility] - 05/05/2020 * * *Final Report* * [...] Unremarkable. IMPRESSION IMPRESSION: No acute radiographic abnormality. Costume Shop Manager: GRANT Transcribe Date/Time: May 05 2020 3:09P Dictated by : ALEJO GORDON MD This examination was interpreted and the report reviewed and electronically signed by: ALEJO GORDON MD on May 05 2020 3:20PM EST [facility] Radiology Study observation (narrative) [facility] XR Chest PA and LateralOrder ed By: Ccf Provider on 05-05-2020 [facility] BD DXA - AXIAL SKELETONon BD DXA - AXIAL SKELETON Final Report DATE OF EXAM: Oct 20 2019 11:23AM LDX 0804 - BD DXA - AXIAL SKELETON / PROCEDURE REASON: multiple diagnoses Physician Interpretation EXAM TITLE: BONE MINERAL DENSITOMETRY COMPARISON:None CLINICAL INDICATION/HISTORY: Postmenopausal TECHNIQUE: DXA [employer] Advance v,11.4 examination was performed on the [...] at high risk for accelerated bone loss). Costume Shop Manager: GRANT Transcribe Date/Time: Oct 21 2019 11:35A Dictated by : IVORY BENAVIDES MD This examination was interpreted and the report reviewed and electronically signed by: IVORY BENAVIDES MD on Oct 21 2019 11:36AM EST Normal [facility] Culture, urine Bacteria identified Cx Nom (U) Culture exhibits no growth. [facility] Work Phone: No Panel Information [facility] Vital Signs Date Time Vital Sign Value Performing Clinician Facility 08-18-2024 14:34-0400 Body height 165.[address] Galina Iraheta MD Work Phone: [facility] 08-18-2024 14:34-0400 Body mass index (BMI) [Ratio] 29.1 kg/m2 Dr. Galina Iraheta MD Work Phone: [facility] 08-18-2024 14:34-0400 Body weight 79.[address] Galina Iraheta MD Work Phone: [facility] 08-13-2024 13:10-0400 Body height 165.[address] Galina Iraheta MD Work Phone: [facility] 03-12-2024 14:00-0500 Body temperature 98.91 [degF] Treatment Wstr Work Phone: [facility] 03-12-2024 14:00-0500 Diastolic blood pressure 73 mm[Hg] Treatment Wstr Work Phone: [facility] 03-12-2024 14:00-0500 Heart rate 68 /min Treatment Wstr Work Phone: [facility] 03-12-2024 14:00-0500 Systolic blood pressure 135 mm[Hg] Treatment Wstr Work Phone: [facility] 02-27-2024 14:58-0500 Body mass index (BMI) [Ratio] 31.12 kg/m2 Treatment Wstr Work Phone: [facility] 02-27-2024 14:58-0500 Body temperature 98.6 [degF] Treatment Wstr Work Phone: [facility] 02-27-2024 14:58-0500 Body weight 84.82 kg Treatment Wstr Work Phone: [facility] 02-27-2024 14:58-0500 Diastolic blood pressure 78 mm[Hg] Treatment Wstr Work Phone: [facility] 02-27-2024 14:58-0500 Heart rate 84 /min Treatment Wstr Work Phone: [facility] 02-27-2024 14:58-0500 SaO2% (BldA) [Mass fraction] 97 % Treatment Wstr Work Phone: [facility] 02-27-2024 14:58-0500 Systolic blood pressure 132 mm[Hg] Treatment Wstr Work Phone: [facility] 02-24-2024 14:01-0500 Body mass index (BMI) [Ratio] 31.12 kg/m2 Cassidy Arreola APRN.CNP Work Phone: [facility] 02-24-2024 14:01-0500 Body temperature 98.49 [degF] Cassidy Arreola PACKAG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 Work Phone: [facility] 02-24-2024 14:01-0500 Body weight 84.82 kg Cassidy Arreola PACKAG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 Work Phone: [facility] 02-24-2024 14:01-0500 Diastolic blood pressure 73 mm[Hg] Cassidy Blackmonenter PACKAG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 Work Phone: [facility] 02-24-2024 14:01-0500 Heart rate 87 /min Cassidy Arreola PACKAG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 Work Phone: [facility] 02-24-2024 14:01-0500 SaO2% (BldA) [Mass fraction] 97 % Cassidy Arreola PACKAG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 Work Phone: [facility] 02-24-2024 14:01-0500 Systolic blood pressure 125 mm[Hg] Cassidy Blackmonenter PACKAG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 Work Phone: [facility] 02-24-2024 13:20-0500 Body mass index (BMI) [Ratio] 31.12 kg/m2 Lab/Port Wstr Work Phone: [facility] 02-24-2024 13:20-0500 Body weight 84.82 kg Lab/Port Wstr Work Phone: [facility] 01-28-2024 11:06-0500 Body mass index (BMI) [Ratio] 30.41 kg/m2 Treatment Wstr Work Phone: [facility] 01-28-2024 11:06-0500 Body temperature 97.59 [degF] Treatment Wstr Work Phone: [facility] 01-28-2024 11:06-0500 Body weight 82.9 kg Treatment Wstr Work Phone: [facility] 01-28-2024 11:06-0500 Diastolic blood pressure 66 mm[Hg] Treatment Wstr Work Phone: [facility] 01-28-2024 11:06-0500 Heart rate 79 /min Treatment Wstr Work Phone: [facility] 01-28-2024 11:06-0500 Respiratory rate 18 /min Treatment Wstr Work Phone: [facility] 01-28-2024 11:06-0500 SaO2% (BldA) [Mass fraction] 96 % Treatment Wstr Work Phone: [facility] 01-28-2024 11:06-0500 Systolic blood pressure 124 mm[Hg] Treatment Wstr Work Phone: [facility] 12-11-2023 08:55-0400 Body temperature 98.01 [degF] Treatment Wstr Work Phone: [facility] 12-11-2023 08:55-0400 Diastolic blood pressure 68 mm[Hg] Treatment Wstr Work Phone: [facility] 12-11-2023 08:55-0400 Heart rate 78 /min Treatment Wstr Work Phone: [facility] 12-11-2023 08:55-0400 Respiratory rate 14 /min Treatment Wstr Work Phone: [facility] 12-11-2023 08:55-0400 SaO2% (BldA) [Mass fraction] 98 % Treatment Wstr Work Phone: [facility] 12-11-2023 08:55-0400 Systolic blood pressure 126 mm[Hg] Treatment Wstr Work Phone: [facility] 12-04-2023 08:11-0400 Body temperature 98.4 [degF] Treatment Wstr Work Phone: [facility] 12-04-2023 08:11-0400 Diastolic blood pressure 71 mm[Hg] Treatment Wstr Work Phone: [facility] 12-04-2023 08:11-0400 Heart rate 74 /min Treatment Wstr Work Phone: [facility] 12-04-2023 08:11-0400 Respiratory rate 16 /min Treatment Wstr Work Phone: [facility] 12-04-2023 08:11-0400 Systolic blood pressure 115 mm[Hg] Treatment Wstr Work Phone: [facility] 10-09-2023 10:49-0400 Body mass index (BMI) [Ratio] 30.35 kg/m2 Treatment Wstr Work Phone: [facility] 10-09-2023 10:49-0400 Body temperature 98.2 [degF] Treatment Wstr Work Phone: [facility] 10-09-2023 10:49-0400 Body weight 82.74 kg Treatment Wstr Work Phone: [facility] 10-09-2023 10:49-0400 Diastolic blood pressure 70 mm[Hg] Treatment Wstr Work Phone: [facility] 10-09-2023 10:49-0400 Heart rate 94 /min Treatment Wstr Work Phone: [facility] 10-09-2023 10:49-0400 Respiratory rate 16 /min Treatment Wstr Work Phone: [facility] 10-09-2023 10:49-0400 SaO2% (BldA) [Mass fraction] 97 % Treatment Wstr Work Phone: [facility] 10-09-2023 10:49-0400 Systolic blood pressure 142 mm[Hg] Treatment Wstr Work Phone: [facility] 09-12-2023 11:10-0400 Body temperature 97.81 [degF] Treatment Wstr Work Phone: [facility] 09-12-2023 11:10-0400 Diastolic blood pressure 61 mm[Hg] Treatment Wstr Work Phone: [facility] 09-12-2023 11:10-0400 Heart rate 90 /min Treatment Wstr Work Phone: [facility] 09-12-2023 11:10-0400 Respiratory rate 16 /min Treatment Wstr Work Phone: [facility] 09-12-2023 11:10-0400 Systolic blood pressure 136 mm[Hg] Treatment Wstr Work Phone: [facility] 08-28-2023 11:00-0400 Body temperature 98.8 [degF] Treatment Wstr Work Phone: [facility] 08-28-2023 11:00-0400 Diastolic blood pressure 56 mm[Hg] Treatment Wstr Work Phone: [facility] 08-28-2023 11:00-0400 Heart rate 86 /min Treatment Wstr Work Phone: [facility] 08-28-2023 11:00-0400 Systolic blood pressure 130 mm[Hg] Treatment Wstr Work Phone: [facility] 08-19-2023 11:01-0400 Body temperature 98.71 [degF] Cassidy Arreola PACKAG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 Work Phone: [facility] 08-19-2023 11:01-0400 Diastolic blood pressure 66 mm[Hg] Cassidy Arreola PACKAG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 Work Phone: [facility] 08-19-2023 11:01-0400 Heart rate 87 /min Cassidy Arreola PACKAG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 Work Phone: [facility] 08-19-2023 11:01-0400 SaO2% (BldA) [Mass fraction] 97 % Cassidy Arreola PACKAG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 Work Phone: [facility] 08-19-2023 11:01-0400 Systolic blood pressure 131 mm[Hg] Cassidy Arreola PACKAG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 Work Phone: [facility] 07-15-2023 14:28-0400 Body height 165.1 cm Vikash Sylvester PACKAG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 Work Phone: [facility] 07-15-2023 14:28-0400 Body mass index (BMI) [Ratio] 29.79 kg/m2 Vikash Sylvester PACKAG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 Work Phone: [facility] 07-15-2023 14:28-0400 Body weight 81.19 kg Vikash Sylvester PACKAG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 Work Phone: [facility] 07-15-2023 14:28-0400 Diastolic blood pressure 84 mm[Hg] Vikash Sylvester PACKAG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 Work Phone: [facility] 07-15-2023 14:28-0400 Systolic blood pressure 122 mm[Hg] Vikash Sylvester PACKAG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 Work Phone: [facility] 07-04-2023 11:28-0400 Body weight 80.92 kg Thalia Monterroso MD Work Phone: [facility] 07-04-2023 11:28-0400 Diastolic blood pressure 65 mm[Hg] Thalia Monterroso MD Work Phone: [facility] 07-04-2023 11:28-0400 Heart rate 80 /min Thalia Monterroso MD Work Phone: [facility] 07-04-2023 11:28-0400 Systolic blood pressure 141 mm[Hg] Thalia Monterroso MD Work Phone: [facility] 06-16-2023 14:16-0400 Body weight 82.1 kg Cecilio Ibarra DO Work Phone: [facility] 06-16-2023 14:16-0400 Diastolic blood pressure 68 mm[Hg] Cecilio Ibarra DO Work Phone: [facility] 06-16-2023 14:16-0400 Heart rate 79 /min Cecilio Ibarra DO Work Phone: [facility] 06-16-2023 14:16-0400 SaO2% (BldA) [Mass fraction] 96 % Cecilio Ibarra DO Work Phone: [facility] 06-16-2023 14:16-0400 Systolic blood pressure 126 mm[Hg] Cecilio Ibarra DO Work Phone: [facility] 04-07-2023 13:01-0500 Body height 165.[address] Galina Iraheta Work Phone: [facility] 02-11-2023 10:15-0500 Body temperature 97.9 [degF] Cassidy Arreola PACKAG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 Work Phone: [facility] 02-11-2023 10:15-0500 Body weight 80.74 kg Cassidy Arreola PACKAG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 Work Phone: [facility] 02-11-2023 10:15-0500 Diastolic blood pressure 70 mm[Hg] Cassidy Blackmonenter PACKAG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 Work Phone: [facility] 02-11-2023 10:15-0500 Heart rate 62 /min Cassidy Arreola PACKAG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 Work Phone: [facility] 02-11-2023 10:15-0500 SaO2% (BldA) [Mass fraction] 99 % Cassidy Arreola PACKAG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 Work Phone: [facility] 02-11-2023 10:15-0500 Systolic blood pressure 124 mm[Hg] Cassidy Arreola PACKAG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 Work Phone: [facility] 12-13-2022 14:31-0400 Body height 167.6 cm Juliet Gaffney PACKAG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 Work Phone: [facility] 12-13-2022 14:31-0400 Body weight 79.38 kg Juliet Gaffney PACKAG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 Work Phone: [facility] 12-13-2022 14:31-0400 Diastolic blood pressure 60 mm[Hg] Juliet Gaffney PACKAG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 Work Phone: [facility] 12-13-2022 14:31-0400 Heart rate 68 /min Juliet Gaffney PACKAG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 Work Phone: [facility] 12-13-2022 14:31-0400 SaO2% (BldA) [Mass fraction] 97 % Juliet Gaffney PACKAG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 Work Phone: [facility] 12-13-2022 14:31-0400 Systolic blood pressure 130 mm[Hg] Juliet Gaffney PACKAG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 Work Phone: [facility] 09-05-2022 09:20-0400 Body height 167.6 cm Cecilio Ibarra DO Work Phone: [facility] 09-05-2022 09:20-0400 Body weight 78.02 kg Cecilio Ibarra DO Work Phone: [facility] 09-05-2022 09:20-0400 Diastolic blood pressure 64 mm[Hg] Cecilio Ibarra DO Work Phone: [facility] 09-05-2022 09:20-0400 Heart rate 69 /min Cecilio Ibarra DO Work Phone: [facility] 09-05-2022 09:20-0400 Systolic blood pressure 124 mm[Hg] Cecilio Ibarra DO Work Phone: [facility] 08-27-2022 11:27-0400 Body temperature 98.4 [degF] Cassidy Arreola PACKAG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 Work Phone: [facility] 08-27-2022 11:27-0400 Body weight 76.66 kg Cassidy Arreola PACKAG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 Work Phone: [facility] 08-27-2022 11:27-0400 Diastolic blood pressure 56 mm[Hg] Cassidy Arreola PACKAG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 Work Phone: [facility] 08-27-2022 11:27-0400 Heart rate 73 /min Cassidy Arreola PACKAG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 Work Phone: [facility] 08-27-2022 11:27-0400 SaO2% (BldA) [Mass fraction] 96 % Haledon Arreola PACKAG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 Work Phone: [facility] 08-27-2022 11:27-0400 Systolic blood pressure 116 mm[Hg] Cassidy Arreola PACKAG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 Work Phone: [facility] 06-05-2022 11:03-0400 Body temperature 97.81 [degF] Cassidy Arreola PACKAG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 Work Phone: [facility] 06-05-2022 11:03-0400 Body weight 77.34 kg Cassidy Arreola PACKAG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 Work Phone: [facility] 06-05-2022 11:03-0400 Diastolic blood pressure 54 mm[Hg] Cassidy Arreola PACKAG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 Work Phone: [facility] 06-05-2022 11:03-0400 Heart rate 74 /min Cassidy Arreola PACKAG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 Work Phone: [facility] 06-05-2022 11:03-0400 SaO2% (BldA) [Mass fraction] 97 % Cassidy Arreola PACKAG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 Work Phone: [facility] 06-05-2022 11:03-0400 Systolic blood pressure 116 mm[Hg] Cassidy Blackmonenter PACKAG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 Work Phone: [facility] 04-17-2022 09:47-0500 Body temperature 97.9 [degF] Treatment Wstr Work Phone: [facility] 04-17-2022 09:47-0500 Diastolic blood pressure 60 mm[Hg] Treatment Wstr Work Phone: [facility] 04-17-2022 09:47-0500 Heart rate 77 /min Treatment Wstr Work Phone: [facility] 04-17-2022 09:47-0500 SaO2% (BldA) [Mass fraction] 97 % Treatment Wstr Work Phone: [facility] 04-17-2022 09:47-0500 Systolic blood pressure 126 mm[Hg] Treatment Wstr Work Phone: [facility] 04-15-2022 14:39-0500 Body temperature 97.2 [degF] Treatment Wstr Work Phone: [facility] 04-15-2022 14:39-0500 Diastolic blood pressure 62 mm[Hg] Treatment Wstr Work Phone: [facility] 04-15-2022 14:39-0500 Heart rate 68 /min Treatment Wstr Work Phone: [facility] 04-15-2022 14:39-0500 Respiratory rate 16 /min Treatment Wstr Work Phone: [facility] 04-15-2022 14:39-0500 Systolic blood pressure 135 mm[Hg] Treatment Wstr Work Phone: [facility] 04-12-2022 13:55-0500 Body temperature 97.7 [degF] Treatment Wstr Work Phone: [facility] 04-12-2022 13:55-0500 Diastolic blood pressure 47 mm[Hg] Treatment Wstr Work Phone: [facility] 04-12-2022 13:55-0500 Heart rate 71 /min Treatment Wstr Work Phone: [facility] 04-12-2022 13:55-0500 Systolic blood pressure 119 mm[Hg] Treatment Wstr Work Phone: [facility] 04-10-2022 10:54-0500 Body temperature 97.3 [degF] Treatment Wstr Work Phone: [facility] 04-10-2022 10:54-0500 Diastolic blood pressure 54 mm[Hg] Treatment Wstr Work Phone: [facility] 04-10-2022 10:54-0500 Heart rate 78 /min Treatment Wstr Work Phone: [facility] 04-10-2022 10:54-0500 Systolic blood pressure 134 mm[Hg] Treatment Wstr Work Phone: [facility] 04-09-2022 14:29-0500 Body height 167.6 cm Taty Perez APRN.SENIOR FIREWALL ENGINEER Work Phone: [facility] 04-09-2022 14:29-0500 Body weight 76.66 kg Taty Perez APRN.SENIOR FIREWALL ENGINEER Work Phone: [facility] 04-09-2022 14:29-0500 Diastolic blood pressure 58 mm[Hg] Taty Perez APRN.SENIOR FIREWALL ENGINEER Work Phone: [facility] 04-09-2022 14:29-0500 Heart rate 75 /min Taty Perez APRN.SENIOR FIREWALL ENGINEER Work Phone: [facility] 04-09-2022 14:29-0500 SaO2% (BldA) [Mass fraction] 98 % Taty Perez PACKAG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 Work Phone: [facility] 04-09-2022 14:29-0500 Systolic blood pressure 118 mm[Hg] Taty Perez PACKAG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 Work Phone: [facility] 04-08-2022 11:01-0500 Body temperature 97.3 [degF] Treatment Wstr Work Phone: [facility] 04-08-2022 11:01-0500 Diastolic blood pressure 57 mm[Hg] Treatment Wstr Work Phone: [facility] 04-08-2022 11:01-0500 Heart rate 79 /min Treatment Wstr Work Phone: [facility] 04-08-2022 11:01-0500 Systolic blood pressure 125 mm[Hg] Treatment Wstr Work Phone: [facility] 03-06-2022 14:21-0500 Body temperature 97.11 [degF] Cassidy Arreola PACKAG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 Work Phone: [facility] 03-06-2022 14:21-0500 Body weight 76.43 kg Cassidy Arreola PACKAG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 Work Phone: [facility] 03-06-2022 14:21-0500 Diastolic blood pressure 57 mm[Hg] Cassidy Arreola PACKAG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 Work Phone: [facility] 03-06-2022 14:21-0500 Heart rate 72 /min Cassidy Arreola PACKAG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 Work Phone: [facility] 03-06-2022 14:21-0500 SaO2% (BldA) [Mass fraction] 100 % Cassidy Arreola PACKAG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 Work Phone: [facility] 03-06-2022 14:21-0500 Systolic blood pressure 119 mm[Hg] Cassidy Arreola PACKAG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 Work Phone: [facility] 03-06-2022 13:44-0500 Body temperature 97 [degF] Dr. Galina Iraheta Work Phone: 1(014)113-960784 [place] [address] 03-06-2022 13:44-0500 Diastolic blood pressure 64 mm[Hg] Dr. Galina Iraheta Work Phone: 1(887)[phone] [place] [address] 03-06-2022 13:44-0500 Heart rate 68 /min Dr. Galina Iraheta Work Phone: 0(422)[phone] [place] [address] 03-06-2022 13:44-0500 Respiratory rate 16 /min Dr. Galina Iraheta Work Phone: 2(294)[phone] [place] [address] 03-06-2022 13:44-0500 SaO2% (BldA) [Mass fraction] 99 % Dr. Galina Iraheta Work Phone: 7(917)[phone] [place] [address] 03-06-2022 13:44-0500 Systolic blood pressure 132 mm[Hg] Dr. Galina Iraheta Work Phone: 4(884)[phone] [place] [address] 03-06-2022 08:50-0500 Body height 165.[address] Galina Iraheta Work Phone: 3(105)415-976266 [place] [address] 03-06-2022 08:50-0500 Body mass index (BMI) [Ratio] 27.3 kg/m2 Dr. Galina Iraheta Work Phone: [phone](956)[phone] [place] [address] 03-06-2022 08:50-0500 Body weight 74.[address] Galina Iraheta Work Phone: [facility] 01-02-2022 13:31-0400 Body height 167.6 cm Basilia Hernández MD Work Phone: [facility] 01-02-2022 13:31-0400 Body weight 74.84 kg Basilia Hernández MD Work Phone: [facility] 01-02-2022 13:31-0400 Diastolic blood pressure 62 mm[Hg] Basilia Hernández MD Work Phone: [facility] 01-02-2022 13:31-0400 Systolic blood pressure 126 mm[Hg] Basilia Hernández MD Work Phone: [facility] 12-28-2021 15:09-0400 Body temperature 98.9 [degF] Dr. Galina Iraheta Work Phone: [facility] 12-28-2021 15:09-0400 Diastolic blood pressure 79 mm[Hg] Dr. aGlina Iraheta Work Phone: [facility] 12-28-2021 15:09-0400 Heart rate 70 /min Dr. Galina Iraheta Work Phone: [facility] 12-28-2021 15:09-0400 Respiratory rate 16 /min Dr. Galina Iraheta Work Phone: [facility] 12-28-2021 15:09-0400 SaO2% (BldA) [Mass fraction] 94 % Dr. Galina Iraheta Work Phone: [facility] 12-28-2021 15:09-0400 Systolic blood pressure 125 mm[Hg] Dr. Galina Iraheta Work Phone: [facility] 12-28-2021 11:18-0400 Body height 165.[address] Galina Iraheta Work Phone: [facility] Work Phone: 12-28-2021 11:18-0400 Body mass index (BMI) [Ratio] 27.4 kg/m2 Dr. Galina Iraheta Work Phone: [facility] 12-28-2021 11:18-0400 Body weight 74.[address] Galina Iraheta Work Phone: [facility] 10-18-2021 18:15-0400 Diastolic blood pressure 68 mm[Hg] [facility] Work Phone: 10-18-2021 18:15-0400 Heart rate 74 /min [facility] Work Phone: 10-18-2021 18:15-0400 Respiratory rate 13 /min [facility] Work Phone: 10-18-2021 18:15-0400 SaO2% (BldA) [Mass fraction] 99 % [facility] Work Phone: 10-18-2021 18:15-0400 Systolic blood pressure 134 mm[Hg] [facility] Work Phone: 10-18-2021 17:15-0400 Body temperature 98.7 [degF] [facility] Work Phone: 10-18-2021 09:50-0400 Body height 167.64 cm [facility] Work Phone: 10-18-2021 09:50-0400 Body mass index (BMI) [Ratio] 27.4 kg/m2 [facility] Work Phone: 10-18-2021 09:50-0400 Body weight 77.11 kg [facility] Work Phone: 10-11-2021 07:56-0400 Body temperature 98.01 [degF] Jeancarlos Hooker MD Work Phone: [facility] 10-11-2021 07:56-0400 Body weight 77.56 kg Jeancarlos Hooker MD Work Phone: [facility] 10-11-2021 07:56-0400 Diastolic blood pressure 48 mm[Hg] Jeancarlos Hooker MD Work Phone: [facility] 10-11-2021 07:56-0400 Heart rate 78 /min Jeancarlos Hooker MD Work Phone: [facility] 10-11-2021 07:56-0400 Respiratory rate 16 /min Jeancarlos Hooker MD Work Phone: [facility] 10-11-2021 07:56-0400 SaO2% (BldA) [Mass fraction] 100 % Jeancarlos Hooker MD Work Phone: [facility] 10-11-2021 07:56-0400 Systolic blood pressure 115 mm[Hg] Jeancarlos Hooker MD Work Phone: [facility] 09-26-2021 14:00-0400 Body height 167.6 cm Basilia Hernández MD Work Phone: [facility] 09-26-2021 14:00-0400 Body weight 77.11 kg Basilia Hernández MD Work Phone: [facility] 09-18-2021 09:15-0400 Body temperature 97.39 [degF] Haledon Arreola P[employer]AG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 Work Phone: [facility] 09-18-2021 09:15-0400 Body weight 77.11 kg Cassidy Arreola PACKAG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 Work Phone: [facility] 09-18-2021 09:15-0400 Diastolic blood pressure 47 mm[Hg] Haledon Arreola PACKAG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 Work Phone: [facility] 09-18-2021 09:15-0400 Heart rate 75 /min Cassidy Arreola PACKAG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 Work Phone: [facility] 09-18-2021 09:15-0400 Systolic blood pressure 108 mm[Hg] Haledon Arreola PACKAG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 Work Phone: [facility] 09-18-2021 09:12-0400 Body weight 77.25 kg [facility] Work Phone: [facility] 09-11-2021 10:39-0400 Body weight 76.66 kg Jayde Hebert MD Work Phone: [facility] 09-11-2021 10:39-0400 Diastolic blood pressure 58 mm[Hg] Jayde Hebert MD Work Phone: [facility] 09-11-2021 10:39-0400 Systolic blood pressure 124 mm[Hg] Jayde Hebert MD Work Phone: [facility] 09-05-2021 13:15-0400 Body height 167.6 cm Cecilio Ibarra DO Work Phone: [facility] 09-05-2021 13:15-0400 Body weight 77.66 kg Cecilio Ibarra DO Work Phone: [facility] 09-05-2021 13:15-0400 Diastolic blood pressure 54 mm[Hg] Cecilio Ibarra DO Work Phone: [facility] 09-05-2021 13:15-0400 Heart rate 73 /min Cecilio Ibarra DO Work Phone: [facility] 09-05-2021 13:15-0400 SaO2% (BldA) [Mass fraction] 97 % Cecilio Ibarra DO Work Phone: [facility] 09-05-2021 13:15-0400 Systolic blood pressure 104 mm[Hg] Cecilio Ibarra DO Work Phone: [facility] 08-30-2021 13:17-0400 Body weight 78.47 kg Jayde Hebert MD Work Phone: [facility] 08-26-2021 14:42-0400 Heart rate 76 /min [facility] Work Phone: 08-26-2021 14:42-0400 Respiratory rate 17 /min [facility] Work Phone: 08-26-2021 14:42-0400 SaO2% (BldA) [Mass fraction] 97 % [facility] Work Phone: 08-26-2021 13:01-0400 Diastolic blood pressure 49 mm[Hg] [facility] Work Phone: 08-26-2021 13:01-0400 Systolic blood pressure 111 mm[Hg] [facility] Work Phone: 08-26-2021 12:13-0400 Body height 167.64 cm [facility] Work Phone: 08-26-2021 12:13-0400 Body mass index (BMI) [Ratio] 27.6 kg/m2 [facility] Work Phone: 08-26-2021 12:13-0400 Body temperature 98.1 [degF] [facility] Work Phone: 08-26-2021 12:130400 Body weight 77.56 kg [facility] Work Phone: 08-23-2021 15:21-0400 Body temperature 98 [degF] [facility] Work Phone: 08-23-2021 15:21-0400 Diastolic blood pressure 41 mm[Hg] [facility] Work Phone: 08-23-2021 15:21-0400 Heart rate 72 /min [facility] Work Phone: 08-23-2021 15:21-0400 Respiratory rate 16 /min [facility] Work Phone: 08-23-2021 15:21-0400 SaO2% (BldA) [Mass fraction] 96 % [facility] Work Phone: 08-23-2021 15:21-0400 Systolic blood pressure 105 mm[Hg] [facility] Work Phone: 08-23-2021 12:24-0400 Body height 167.64 cm [facility] Work Phone: 08-23-2021 12:24-0400 Body mass index (BMI) [Ratio] 27.8 kg/m2 [facility] Work Phone: 08-23-2021 12:24-0400 Body weight 78.1 kg [facility] Work Phone: 08-15-2021 16:04-0400 Body weight 78.47 kg Jayde Hebert MD Work Phone: [facility] 08-15-2021 16:04-0400 Diastolic blood pressure 58 mm[Hg] Jayde Hebert MD Work Phone: [facility] 08-15-2021 16:04-0400 Systolic blood pressure 118 mm[Hg] Jayde Hebert MD Work Phone: [facility] 08-08-2021 14:10-0400 Body weight 78.02 kg 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: [facility] 08-08-2021 14:10-0400 Diastolic blood pressure 66 mm[Hg] 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: [facility] 08-08-2021 14:10-0400 Heart rate 68 /min 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: [facility] 08-08-2021 14:10-0400 Respiratory rate 16 /min 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: [facility] 08-08-2021 14:10-0400 Systolic blood pressure 116 mm[Hg] 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: [facility] 07-05-2021 09:41-0400 Body height 167.6 cm Johnny Turk MD Work Phone: [facility] 07-05-2021 09:41-0400 Body temperature 98.6 [degF] Johnny Turk MD Work Phone: [facility] 07-05-2021 09:41-0400 Body weight 79.83 kg Johnny Turk MD Work Phone: [facility] 07-05-2021 09:41-0400 Diastolic blood pressure 60 mm[Hg] Johnny Turk MD Work Phone: [facility] 07-05-2021 09:41-0400 Heart rate 69 /min Johnny Turk MD Work Phone: [facility] 07-05-2021 09:41-0400 SaO2% (BldA) [Mass fraction] 100 % Johnny Turk MD Work Phone: [facility] 07-05-2021 09:41-0400 Systolic blood pressure 106 mm[Hg] Johnny Turk MD Work Phone: [facility] 07-03-2021 11:58-0400 Body temperature 98.4 [degF] Alma Older PACKAG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 Work Phone: [facility] 07-03-2021 11:58-0400 Body weight 78.93 kg Alma Older PACKAG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 Work Phone: [facility] 07-03-2021 11:58-0400 Diastolic blood pressure 64 mm[Hg] Alma Older PACKAG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 Work Phone: [facility] 07-03-2021 11:58-0400 Heart rate 67 /min Alma Older PACKAG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 Work Phone: [facility] 07-03-2021 11:58-0400 Respiratory rate 12 /min Alma Older PACKAG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 Work Phone: [facility] 07-03-2021 11:58-0400 SaO2% (BldA) [Mass fraction] 97 % Alma Older PACKAG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 Work Phone: [facility] 07-03-2021 11:58-0400 Systolic blood pressure 118 mm[Hg] Alma Older PACKAG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 Work Phone: [facility] 07-03-2021 04:44-0400 Diastolic blood pressure 64 mm[Hg] [facility] Work Phone: 07-03-2021 04:44-0400 Heart rate 69 /min [facility] Work Phone: 07-03-2021 04:44-0400 Respiratory rate 18 /min [facility] Work Phone: 07-03-2021 04:44-0400 SaO2% (BldA) [Mass fraction] 96 % [facility] Work Phone: 07-03-2021 04:44-0400 Systolic blood pressure 119 mm[Hg] [facility] Work Phone: 07-02-2021 23:21-0400 Body height 167.64 cm [facility] Work Phone: 07-02-2021 23:21-0400 Body mass index (BMI) [Ratio] 28.4 kg/m2 [facility] Work Phone: 07-02-2021 23:21-0400 Body temperature 97.2 [degF] [facility] Work Phone: 07-02-2021 23:21-0400 Body weight 79.9 kg [facility] Work Phone: 06-05-2021 10:40-0400 Body height 167.6 cm Aby Bruner DO Work Phone: [facility] 06-05-2021 10:40-0400 Body weight 79.83 kg Aby Bruner DO Work Phone: [facility] 06-05-2021 10:40-0400 Diastolic blood pressure 62 mm[Hg] Aby Bruner DO Work Phone: [facility] 06-05-2021 10:40-0400 Heart rate 65 /min Aby Bruner DO Work Phone: [facility] 06-05-2021 10:40-0400 SaO2% (BldA) [Mass fraction] 99 % Aby Bruner DO Work Phone: [facility] 06-05-2021 10:40-0400 Systolic blood pressure 110 mm[Hg] Aby Bruner DO Work Phone: [facility] Encounters Encounter Date Encounter Type Care Provider Facility Start: 08-27-2024 End: 08-27-2024 ambulatory Thalia Monterroso MD Work Phone: Rheumatology Comment on above: Rheumatoid arthritis involving multiple sites, unspecified whether rheumatoid factor present (HCC) (Primary Dx); Senile osteoporosis; On prednisone therapy [facility] Start: 08-27-2024 End: 08-27-2024 Telemedicine consultation with patient Thalia Monterroso MD Work Phone: Rheumatology Start: 08-18-2024 End: 08-18-[address] Charles Ramos MD -[facility] Start: 08-18-2024 End: 08-18-2024 ambulatory Carmella Deluca Facility:[facility] Start: 08-13-2024 End: 08-13-[address] Charles Ramos MD -[facility] Start: 08-13-2024 End: 08-13-[address] Galina Iraheta MD Work Phone: [facility] Work Phone: Start: 08-06-2024 End: 08-06-[address] Galina Iraheta MD Work Phone: [facility] Work Phone: Start: 08-06-2024 End: 08-06-[address] Hiwot Abdullahi MD -Cat Scan [facility] Work Phone: Start: 08-06-2024 End: 08-06-2024 ambulatory [facility] Facility:[facility] Start: 08-02-2024 End: 08-02-2024 Departed Referred Reji GonzalezAgnes [facility] Start: 08-02-2024 End: 08-02-2024 ambulatory [facility] Facility:[facility] Start: 07-08-2024 End: 07-08-[address] Galina Iraheta MD Work Phone: [facility] Work Phone: Start: 07-08-2024 End: 07-08-2024 Departed Referred Reji GonzalezAgnes [facility] Start: 07-08-2024 Registered Referred Reji GonzalezAgnes [facility] Start: 07-07-2024 End: 07-08-[address] Galina Iraheta MD Work Phone: [facility] Work Phone: Start: 07-07-2024 End: 07-07-2024 Departed Referred Reji GonzalezAgnes [facility] Start: 07-07-2024 Registered Referred Reji GonzalezAgnes [facility] Start: 07-06-2024 End: 07-07-[address] Galina Iraheta MD Work Phone: [facility] Work Phone: Start: 07-06-2024 End: 07-06-[address] Reji Reyna MD -[facility] Work Phone: Start: 07-05-2024 End: 07-05-[address] Galina Iraheta MD Work Phone: [facility] Work Phone: Start: 07-05-2024 End: 07-05-2024 Departed Referred Reji Reyna MD -[facility] Start: 07-05-2024 Registered Referred Reji GonzalezAgnes [facility] Start: 07-05-2024 End: 07-05-2024 ambulatory [facility] Facility:[facility] Start: 06-16-2024 End: 06-16-2024 Telephone encounter Thalia Monterroso MD Work Phone: Rheumatology Start: 06-16-2024 End: 06-16-2024 Departed Referred Reji Reyna MD -[facility] Start: 06-16-2024 [facility] Start: 06-16-2024 End: 06-16-2024 ambulatory [facility] Facility:[facility] Start: 06-11-2024 End: 06-11-2024 ambulatory [facility] Work Phone: Hematology/Oncology Comment on above: Rheumatoid arthritis involving multiple sites, unspecified whether rheumatoid factor present (HCC); Senile osteoporosis Start: 05-31-2024 End: 05-31-[address] Galina Iraheta MD Work Phone: [facility] Work Phone: Start: 05-31-2024 End: 05-31-2024 [facility] Start: 05-31-2024 Registered Referred Reji GonzalezSANDRA [facility] Start: 05-31-2024 End: 05-31-2024 ambulatory [facility] Facility:[facility] Start: 05-21-2024 End: 05-21-2024 ambulatory Thalia Monterroso MD Work Phone: Rheumatology Comment on above: Rheumatoid arthritis involving multiple sites, unspecified whether rheumatoid factor present (HCC) (Primary Dx); Senile osteoporosis; On prednisone therapy Start: 05-21-2024 End: 05-21-2024 Telemedicine consultation with patient Thalia Monterroso MD Work Phone: Rheumatology Start: 05-13-2024 End: 05-13-[address] Galina Iraheta MD Work Phone: [facility] Work Phone: Start: 05-13-2024 End: 05-13-2024 Departed Referred Reji GonzalezAgnes [facility] Start: 05-13-2024 End: 05-13-2024 ambulatory [facility] Facility:[facility] Start: 05-13-2024 End: 05-13-2024 Patient encounter procedure Galina Horner NP-Ana M -[facility] Work Phone: Start: 05-13-2024 End: 05-13-2024 ambulatory Reji POPE Facility:[facility] Start: 05-03-2024 ambulatory Reji POPE Facility:[facility] Start: 05-03-2024 Registered Referred Reji GonzalezAgnes [facility] Start: 04-23-2024 End: 04-23-2024 Departed Referred Reji GonzalezAgnes [facility] Start: 04-23-2024 End: 04-23-2024 ambulatory Reji POPE Facility:[facility] Start: 04-05-2024 End: 04-05-2024 Departed Referred Reji [facility] Start: 04-05-2024 End: 04-05-2024 ambulatory Reji POPE Facility:[facility] Start: 03-25-2024 End: 03-26-2024 ambulatory Cassidy Arreola APRN.CNP Work Phone: Hematology/Oncology Comment on above: Test Results Start: 03-19-2024 End: 03-19-2024 [facility] Comment on above: Bilateral hip pain [ M25.551, M25.552] Iron deficiency anem ia due to chronic blood loss [D50.0] Start: 03-19-2024 End: 03-19-2024 ambulatory REJI REYNA Facility:[facility] Start: 03-12-2024 End: 03-12-2024 ambulatory Treatment Rm [...] Appointment Start: 03-02-2024 ambulatory Reji POPE Facility:[facility] Start: 03-02-2024 [facility]istered [facility] Start: 03-01-2024 ambulatory Reji POEP Facility:[facility] Start: 03-01-2024 Registered [facility] Start: 02-27-2024 End: 02-27-2024 ambulatory [...] End: 02-02-2024 ambulatory Efarline Reyna OLS Facility:[facility] Start: 01-28-2024 End: 01-28-2024 ambulatory Treatment Rm [facility] Work Phone: Hematology/Oncology Comment on above: Rheumatoid arthritis involving multiple sites with positive rheumatoid factor (HCC) (Primary Dx) Start: 01-23-2024 End: 01-23-2024 Telephone encounter Thalia Monterroso MD Work Phone: Rheumatology Comment on above: Patient Update Start: 01-14-2024 End: 01-14-2024 ambulatory Efarline Reyna OLS Facility:[facility] Start: 01-05-2024 ambulatory Efarline modi OLS Facility:[facility] Start: 12-31-2023 End: 12-31-2023 ambulatory Galina Iraheta Facility:[facility] Start: 12-29-2023 ambulatory Efarline modi OLS Facility:[facility] Start: 12-11-2023 End: 12-11-2023 ambulatory EFEWONGBE Yanelis [...] Start: 12-02-2023 ambulatory Reji modi OLS Facility:[facility] Start: 12-01-2023 ambulatory Reji modi OLS Facility:[facility] Start: 11-27-2023 ambulatory Reji modi OLS Facility:[facility] Start: 11-25-2023 End: 11-26-2023 Telephone encounter Sal Bonilla DO Work Phone: Hematology/Oncology Comment on above: Patient Update Start: 11-25-2023 End: 11-25-2023 ambulatory Lab/[facility] Work Phone: Hematology/Oncology Comment on above: [...] Phone: Rheumatology Start: 11-07-2023 End: 11-07-2023 [facility] Start: 11-04-2023 End: 11-04-2023 ambulatory [facility] Facility:[facility] Start: 11-03-2023 ambulatory Efarline modi OLS Facility:[facility] Start: 10-09-2023 End: 10-09-2023 ambulatory [facility] Yanelis [facility] Hematology/Oncology Comment on above: Rheumatoid arthritis involving multiple sites with positive rheumatoid factor (HCC) (Primary Dx) Start: 10-09-2023 End: 10-09-2023 Patient encounter procedure Treatment Rm [facility] Work Phone: Hematology/Oncology Start: 09-29-2023 End: 09-29-2023 ambulatory Galina Iraheta Facility:[facility] Start: 09-12-2023 End: 09-12-2023 ambulatory Treatment Rm [facility] Work Phone: Hematology/Oncology Comment on above: Rheumatoid arthritis involving multiple sites with positive rheumatoid factor (HCC) (Primary Dx) Start: 09-01-2023 End: 09-01-2023 ambulatory Jaspalermogarfield POPE Facility:[facility] Start: 08-28-2023 End: 08-28-2023 ambulatory Treatment Rm [...] Start: 07-15-2023 End: 07-15-2023 ambulatory EFEWAILYN REYNA Facility:[facility] Start: 07-15-2023 End: 07-15-2023 Patient encounter procedure Vikash Sylvester APRN.SENIOR FIREWALL ENGINEER Work Phone: URO/Gynecology Comment on above: Recurrent UTI (Prima ry Dx); Vaginal atrophy Start: 07-04-2023 End: 07-04-2023 ambulatory Hamzah Jackson [facility] Start: 07-04-2023 End: [...] 06-30-2023 End: 06-30-2023 Patient encounter procedure Stella Preciado PA-C Work Phone: Orthopaedics Comment on above: Primary osteoarthrit is of both knees (Primary Dx) Start: 06-30-2023 End: 06-30-[address] Galina Iraheta Work Phone: [facility] Work Phone: Start: 06-30-2023 End: 06-30-[address] Galina Iraheta Work Phone: [facility] Start: 06-18-2023 End: 06-18-2023 Patient encounter procedure Stella Preciado PA-C Work Phone: Orthopaedics Comment on above: Chronic pain of left knee (Primary Dx); Primary osteoarthritis of both knees Start: 06-18-2023 End: 06-18-2023 Subsequent hospital visit by physician Yulissa [facility] Work Phone: Radiology Comment on above: [...] Subsequent hospital visit by physician [facility] Work Phone: Radiology Comment on above: On prednisone therap y [Z79.52] Start: 06-02-2023 End: 06-02-[address] Galina Iraheta Work Phone: [facility] Work Phone: Start: 06-02-2023 End: 06-02-[address] Galina Iraheta Work Phone: [facility] Start: 05-19-2023 Orders Only Cassidy waldrop APRN.CNP Work Phone: Hematology/Oncology Comment on above: Malignant neoplasm o f lower-inner quadrant of right breast of female, estrogen receptor positive (HCC) (Primary Dx); Iron deficiency anemia due to chronic blood loss Start: 05-05-2023 End: 05-05-[address] Galina Iraheta Work Phone: [facility] Work Phone: Start: 05-05-2023 End: 05-05-[address] Galina Iraheta Work Phone: [facility] Start: 04-28-2023 Telephone encounter Thalia Monterroso MD Work Phone: Rheumatology Comment on above: Patient Update Start: 04-24-2023 Telephone encounter Thalia Monterroso MD Work Phone: Rheumatology Comment on above: Pain Start: 03-31-2023 End: 03-31-[address] Galina Iraheta Work Phone: [facility] Work Phone: Start: 03-31-2023 End: 03-31-[address] Galina Iraheta Work Phone: [facility] Start: 03-24-2023 End: 03-24-[address] Galina Iraheta Work Phone: [facility] Work Phone: Start: 03-03-2023 End: 03-03-[address] Galina Iraheta Work Phone: [facility] Start: 02-19-2023 End: 02-19-[address] Galina Iraheta Work Phone: [facility] Work Phone: Start: 02-11-2023 End: 02-11-2023 ambulatory Cassidy Arreola APRN.SENIOR FIREWALL ENGINEER Work Phone: Hematology/Oncology Comment on above: Personal history of breast cancer (Primary Dx); Iron deficiency anemia due to chronic blood loss Start: 02-11-2023 End: 02-11-2023 Patient encounter procedure Cassidy Arreola APRN.SENIOR FIREWALL ENGINEER Work Phone: [facility] Start: 02-03-2023 End: 02-03-2023 ambulatory [facility] Work Phone: Start: 02-03-2023 End: 02-03-2023 Departed Referred [facility] Start: 01-29-2023 End: 01-29-[address] Galina Iraheta Work Phone: [facility] Work Phone: Start: 01-14-2023 End: 01-14-2023 ambulatory [facility] [facility] Work Phone: Hematology/Oncology Comment on above: Iron deficiency anem ia due to chronic blood loss (Primary Dx); Personal history of breast cancer; Malignant neoplasm of lower-inner quadrant of right breast of female, estrogen receptor positive (HCC) Start: 12-30-2022 End: 12-30-2022 ambulatory [facility] Work Phone: Start: 12-30-2022 End: 12-30-2022 Departed Referred [facility] Start: 12-19-2022 Telephone encounter Flaca Jasso [...] (HCC) Start: 12-02-2022 End: 12-02-2022 Departed Referred [facility] Start: 11-26-2022 Telephone encounter Stella camejo PA-C Work Phone: Orthopaedics Start: 11-25-2022 End: 11-25-2022 Subsequent hospital visit by physician Xr [facility] Work Phone: Radiology Comment on above: Pain in right wrist [M25.531] Start: 11-25-2022 End: 11-25-2022 Patient encounter procedure Stella Preciado PA-C Work Phone: Orthopaedics Comment on above: Pain in right wrist (Primary Dx); Primary osteoarthritis of both knees; [facility] arthritis Start: 11-14-2022 Telephone encounter Jerrica Beltran APRN.SENIOR FIREWALL ENGINEER Work Phone: Cardiology Comment on above: Appointment Cancelle d Start: 11-04-2022 End: 11-04-2022 Departed Referred [facility] Start: 11-04-[address] Galina Iraheta Work Phone: [facility] Start: 10-22-2022 End: 10-22-2022 ambulatory [facility] [facility] Work Phone: Hematology/Oncology Comment on above: Encounter for care r elated to vascular access port (Primary Dx) Start: 09-30-2022 End: 09-30-[address] Galina Iraheta Work Phone: [facility] Work Phone: Start: 09-30-2022 End: 09-30-[address] Galina Iraheta Work Phone: [facility] Start: 09-30-[address] Galina Iraheta Work Phone: [facility] Start: 09-24-2022 End: 09-24-2022 ambulatory [facility] [facility] Work Phone: Hematology/Oncology Comment on above: Encounter for care r elated to vascular access port (Primary Dx) Start: 09-20-2022 Telephone encounter Cecilio Ibarra DO Work Phone: Cardiology Comment on above: Results (CBC 09/19/22 - 2 week starting Eliquis) Start: 09-19-2022 End: 09-19-[address] Galina Iraheta Work Phone: [facility] Work Phone: Start: 09-19-2022 End: 09-19-[address] Galina Iraheta Work Phone: [facility] Start: 09-19-[address] Galina Iraheta Work Phone: [facility] Start: 09-05-2022 End: 09-05-2022 Patient encounter procedure Cecilio Alarcon Marilu DO Work Phone: Cardiology Comment on above: Paroxysmal atrial fi brillation (HCC) (Primary Dx); Rheumatic mitral regurgitation; Essential hypertension; Mixed hyperlipidemia; Obstructive sleep apnea syndrome; Shortness of breath; PAF (paroxysmal atrial fibrillation) (HCC); SVT (supraventricular tachycardia) (HCC) Start: 09-02-2022 End: 09-02-[address] Galina Iraheta Work Phone: [facility] Work Phone: Start: 09-02-2022 End: 09-02-[address] Galina Iraheta Work Phone: [facility] Start: 08-27-2022 End: 08-27-2022 ambulatory Cassidy Arreola APRN.CNP Work Phone: Hematology/Oncology Comment on above: Personal history of breast cancer (Primary Dx); Iron deficiency anemia due to chronic blood loss Start: 08-27-2022 End: 08-27-2022 Patient encounter procedure Cassidy Arreola APRN.CNP Work Phone: [facility] Start: 08-14-2022 End: 08-14-[address] Galina Iraheta Work Phone: [facility] Work Phone: Start: 07-29-2022 End: 07-29-[address] Galina Iraheta Work Phone: [facility] Start: 07-01-2022 End: 07-01-[address] Galina Iraheta Work Phone: [facility] Work Phone: Start: 07-01-2022 End: 07-01-[address] Galina Iraheta Work Phone: [facility] Start: 06-18-2022 End: 06-18-2022 ambulatory [facility] Work Phone: Hematology/Oncology Comment on above: Personal history of breast cancer (Primary Dx) Start: 06-11-2022 Telephone encounter Cassidy vizcaino APRN.SENIOR FIREWALL ENGINEER Work Phone: Hematology/Oncology Comment on above: Results Start: 06-05-2022 End: 06-05-2022 Subsequent hospital visit by physician Xr [facility] Work Phone: Radiology Comment on above: Personal history of breast cancer [Z85.3] Start: 06-05-2022 End: 06-05-2022 ambulatory Cassidy Arreola APRN.SENIOR FIREWALL ENGINEER Work Phone: Hematology/Oncology Comment on above: Personal history of breast cancer (Primary Dx); Rib pain on right side Start: 06-05-2022 End: 06-05-2022 Patient encounter procedure Cassidy Arreola APRN.SENIOR FIREWALL ENGINEER Work Phone: [facility] Start: 06-03-2022 End: 06-03-[address] Galina Iraheta Work Phone: [facility] Work Phone: Start: 06-03-2022 End: 06-03-[address] Galina Iraheta Work Phone: [facility] Start: 06-03-[address] Galina Iraheta Work Phone: [facility] Start: 05-30-2022 End: 05-30-[address] Galina Iraheta Work Phone: [facility] Start: 05-30-2022 Telephone encounter Sal gutierrez DO Work Phone: Hematology/Oncology Comment on above: Patient Question Start: 05-06-2022 End: 05-06-[address] Galina Iraheta Work Phone: [facility] Work Phone: Start: 05-06-2022 End: 05-06-[address] Galina Iraheta Work Phone: [facility] [place] Start: 04-17-2022 End: 04-17-2022 ambulatory Treatment [...] Son RN He matology/Oncology Comment on above: District Administrative Assistant - O ther (Symptoms ) Start: 04-09-2022 End: 04-09-2022 Office outpatient visit 25 minutes Taty Perez APRN.SENIOR FIREWALL ENGINEER Work Phone: Cardiology Comment on above: Chest [...] ambulatory Dr. Galina Iraheta Work Phone: [facility] Work Phone: Start: 04-01-2022 End: 04-01-[address] Galina Iraheta Work Phone: [facility] Start: 04-01-[address] Galina Iraheta Work Phone: [facility] Start: 03-28-2022 End: 03-28-[address] Galina Iraheta Work Phone: [facility] Start: 03-25-2022 End: 03-25-[address] Galina Iraheta Work Phone: [facility] Start: 03-24-2022 Telephone encounter [...] ambulatory Dr. Galina Iraheta Work Phone: [facility] Work Phone: Start: 03-07-2022 End: 03-07-[address] Galina Iraheta Work Phone: [facility] Start: 03-07-[address] Galina Iraheta Work Phone: [facility] Start: 03-06-2022 Telephone encounter Sal gutierrez DO Work Phone: Hematology/Oncology Comment on above: Returning Patient's Call Start: 03-06-2022 End: 03-06-2022 ambulatory Cassidy Arreola APRN.CNP Work Phone: Hematology/Oncology Comment on above: Malignant neoplasm o f lower-inner quadrant of right breast of female, estrogen receptor positive (HCC) (Primary Dx) Start: 03-06-2022 End: 03-06-2022 Patient encounter procedure Cassidy Arreola APRN.SENIOR FIREWALL ENGINEER Work Phone: [facility] Start: 03-04-2022 End: 03-04-[address] Galina Iraheta Work Phone: [facility] Work Phone: Start: 03-04-2022 End: 03-04-[address] Galina Iraheta Work Phone: [facility] Start: 03-04-[address] Galina Iraheta Work Phone: [facility] Start: 02-21-2022 End: 02-21-[address] Galina Iraheta Work Phone: [facility] Work Phone: Start: 02-21-2022 End: 02-21-[address] Galina Iraheta Work Phone: [facility] Start: 02-21-[address] Galina Iraheta Work Phone: [facility] Start: 02-05-2022 End: 02-05-2022 ambulatory [facility] Work Phone: Hematology/Oncology Comment on above: Anemia, unspecified type (Primary Dx) Start: 02-04-2022 End: 02-04-[address] Galina Iraheta Work Phone: [facility] Work Phone: Start: 02-04-2022 End: 02-04-[address] Galina Iraheta Work Phone: [facility] Start: 02-04-[address] Galina Iraheta Work Phone: [facility] Start: 01-21-2022 End: 01-21-2022 Patient encounter procedure Stella Preciado PA-C Work Phone: Orthopaedics Comment on above: Primary osteoarthrit is of both knees (Primary Dx); Chronic pain of right knee Start: 01-17-2022 End: 01-17-[address] Galina Iraheta Work Phone: [facility] Work Phone: Start: 01-17-2022 End: 01-17-[address] Galina Iraheta Work Phone: [facility] Start: 01-17-[address] Galnia Iraheta Work Phone: [facility] Start: 01-08-2022 End: 01-08-2022 ambulatory [facility] [facility] Work Phone: Hematology/Oncology Comment on above: Malignant neoplasm o f lower-inner quadrant of right breast of female, estrogen receptor positive (HCC) (Primary Dx) Start: 01-03-2022 End: 01-03-[address] Galina Iraheta Work Phone: [facility] Work Phone: Start: 01-03-2022 End: 01-03-[address] Galina Iraheta Work Phone: [facility] Start: 01-03-[address] Galina Iraheta Work Phone: [facility] Start: 01-02-2022 End: 01-02-2022 ambulatory BASILIA HERNÁNDEZ Facility:[facility] Start: 01-02-2022 End: 01-02-2022 Patient encounter procedure Basilia Hernández MD Work Phone: URO/Gynecology Comment on above: Recurrent UTI (Prima ry Dx); History of ESBL E. coli infection; Vaginal atrophy Start: 12-31-2021 End: 12-31-[address] Galina Iraheta Work Phone: [facility] Work Phone: Start: 12-31-2021 End: 12-31-[address] Galina Irahtea Work Phone: [facility] Start: 12-28-2021 End: 12-28-[address] Galina Iraheta Work Phone: [facility] Start: 12-28-2021 End: 12-28-2021 Emergency department patient visit Dr. Galina Iraheta Work Phone: [facility] Start: 12-27-2021 End: 12-27-[address] Galina Iraheta Work Phone: [facility] Work Phone: Start: 12-27-2021 End: 12-27-[address] Galina Iraheta Work Phone: [facility] Start: 12-27-[address] Galina Iraheta Work Phone: [facility] Start: 12-25-2021 Telephone encounter Cecilio Ibarra DO Work Phone: Cardiology Comment on above: District Administrative Assistant - O ther Start: 12-24-2021 End: 12-24-[address] Galina Iraheta Work Phone: [facility] Start: 12-22-2021 End: 12-22-[address] Galina Iraheta Work Phone: [facility] Work Phone: Start: 12-22-2021 End: 12-22-[address] Galina Iraheta Work Phone: [facility] Start: 12-22-[address] Galina Iraheta Work Phone: [facility] Start: 12-21-2021 End: 12-21-[address] Galina Iraheta Work Phone: [facility] Start: 12-17-2021 End: 12-17-[address] Galina Iraheta Work Phone: [facility] Start: 12-17-2021 Registered Referred [facility] Start: 12-11-2021 End: 12-11-2021 ambulatory [facility] Work Phone: Hematology/Oncology Comment on above: Malignant neoplasm o f lower-inner quadrant of right breast of female, estrogen receptor positive (HCC) (Primary Dx) Start: 12-10-2021 End: 12-10-[address] Galina Iraheta Work Phone: [facility] Start: 12-10-2021 Registered Referred [facility] Start: 12-03-2021 End: 12-03-[address] Galina Iraheta Work Phone: [facility] Work Phone: Start: 12-03-2021 End: 12-03-[address] Galina Iraheta Work Phone: [facility] Start: 12-03-2021 Registered Referred [facility] Start: 11-26-2021 End: 11-26-2021 Departed Referred [facility] Start: 11-20-2021 End: 11-20-2021 ambulatory [facility] Work Phone: Start: 11-20-2021 End: 11-20-2021 Departed Referred [facility] Start: 11-13-2021 End: 11-13-2021 ambulatory [facility] Work Phone: Hematology/Oncology Comment on above: Malignant neoplasm o f lower-inner quadrant of right breast of female, estrogen receptor positive (HCC) (Primary Dx) Start: 11-05-2021 Telephone encounter Pharmacist [facility] Comment on above: PAC TRANSFER OF CARE Start: 10-29-2021 End: 10-29-2021 Departed Referred [facility] Start: 10-23-2021 Telephone encounter Nury uriarte [facility] Comment on above: Patient Question Start: 10-18-2021 Telephone encounter Galina caballero MD Work Phone: Internal Medicine [place] Comment on above: Patient Update Start: 10-18-2021 End: 10-18-2021 Emergency department patient visit [facility] Start: 10-17-2021 Telephone encounter Galina caballero MD Work Phone: Internal Medicine [place] Comment on above: Release Of Medical R ecords Start: 10-16-2021 Telephone encounter Tesha Manzo [facility] Comment on above: Anticoagulation Tele phone Fu (home INR ) Start: 10-16-2021 End: 10-16-2021 ambulatory [facility] [facility] Work Phone: [facility] Start: 10-16-2021 End: 10-16-2021 Anticoagulant drug monitoring [facility] [facility] Work Phone: Hematology/Oncology Comment on above: Malignant neoplasm o f lower-inner quadrant of right breast of female, estrogen receptor positive (HCC) (Primary Dx); Chronic anticoagulation Start: 10-15-2021 Telephone encounter Vito Jay [facility] Ambulatory [facility] Comment on above: Anticoagulation Tele phone Fu (Home INR Result) High INR/lab order Start: 10-11-2021 End: 10-11-2021 Patient encounter procedure Jeancarlos Hooker MD Work Phone: Infectious Disease Comment on above: Recurrent UTI; History of ESBL E. coli infection Start: 10-02-2021 Telephone encounter Tesha Manzo [facility] Ambulatory [facility] Comment on above: Anticoagulation Tele phone Fu (home INR ) Start: 09-26-2021 End: 09-26-2021 ambulatory BASILIA HERNÁNDEZ Facility:[facility] Start: 09-26-2021 End: 09-26-2021 Patient encounter procedure Basilia Hernández MD Work Phone: URO/Gynecology Comment on above: Recurrent UTI (Prima ry Dx); History of ESBL E. coli infection; Mixed stress and urge urinary incontinence Start: 09-19-2021 Telephone encounter Jerrica Rothman [facility] Ambulatory [facility] Comment on above: Anticoagulation Tele phone Fu (Home INR result) Start: 09-18-2021 End: 09-18-2021 Patient encounter procedure Cassidy Arreola APRN.CNP Work Phone: [facility] Start: 09-18-2021 End: 09-18-2021 ambulatory [facility] [facility] Work Phone: Hematology/Oncology Comment on above: Malignant neoplasm o f lower-inner quadrant of right breast of female, estrogen receptor positive (HCC) (Primary Dx) Start: 09-11-2021 Telephone encounter Pharmacist [facility] Comment on above: Anticoagulation Start: 09-11-2021 End: 09-11-2021 Patient encounter procedure Jayde Hebert MD Work Phone: OB/Gynecology Comment on above: Old laceration of ce rvix uteri (Primary Dx) Start: 09-10-2021 Telephone encounter Jayde Hebert MD Work Phone: OB/Gynecology Comment on above: Results Start: 09-06-2021 Telephone encounter Galina caballero MD Work Phone: Internal [facility] [place] Comment on above: Patient Update Start: 09-05-2021 [...] m caregiver Jayde Hebert MD Work Phone: [facility] Start: 08-28-2021 End: 08-28-2021 Patient encounter procedure Jayde Hebert MD Work Phone: OB/Gynecology Comment on above: Old laceration of ce rvix uteri (Primary Dx); Abnormal uterine bleeding (AUB) Start: 08-26-2021 End: 08-26-2021 Emergency department patient visit [facility] Start: 08-23-2021 ambulatory Jayde jackson MD Work Phone: OB/Gynecology Comment on above: PMB (postmenopausal bleeding) (Primary Dx); Endometrial thickening on ultrasound Start: 08-23-2021 Patient encounter procedure Jayde Hebert MD Work Phone: [facility] Start: 08-23-2021 End: 08-23-2021 Admission to same day surgery center [facility] Start: 08-22-2021 Telephone encounter Jerrica [...] An Ta APRN.CNP Work Phone: [facility] [place] Comment on above: Results Start: 08-14-2021 Telephone encounter Nury Andres [facility] Ambulatory [facility] Comment on above: Anticoagulation Tele phone Fu (Home INR result) Start: 08-12-2021 ambulatory 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 Comment on above: UTI Start: 08-10-2021 Telephone encounter An Ta APRN.SENIOR FIREWALL ENGINEER Work Phone: [facility] [place] Comment on above: Results Start: 08-08-2021 End: 08-08-2021 Patient encounter procedure An Ta APRN.SENIOR FIREWALL ENGINEER Work Phone: [facility] [place] Comment on above: History of recent ho spitalization (Primary Dx); Dysuria; Recurrent UTI; Cirrhosis of liver with ascites, unspecified hepatic cirrhosis type (HCC); Biliary colic Start: 07-31-2021 Telephone encounter Nury Andres [facility] Ambulatory [facility] Comment on above: Anticoagulation Tele phone Fu (Home INR result) Start: 07-27-2021 Telephone encounter Galina caballero MD Work Phone: Internal Medicine [place] Comment on above: Agree to follow; Ord [...] Dx) Start: 07-23-2021 End: 07-23-2021 Departed Referred [facility] Start: 07-23-2021 Registered Referred [place] [id number] Start: 07-18-2021 Telephone encounter Marlin Ansari [facility] Ambulatory [facility] Comment on above: Anticoagulation Tele phone Fu Patient Update Start: 07-16-2021 End: 07-16-2021 Departed Referred [facility] [address] Start: 07-16-2021 Registered Referred [facility] [address] Start: 07-13-2021 End: 07-13-2021 Departed Referred [place] [id number] Start: 07-10-2021 ambulatory Galina Singh Work Phone: Internal Medicine [facility] [place] Start: 07-06-2021 Telephone encounter Coreen haro MD Work Phone: Gastroenterology Comment on above: Results Start: 07-05-2021 Telephone encounter Galina caballero MD Work Phone: [facility] [place] Comment on above: Pain (back & legs / Pt update) Start: 07-05-2021 End: 07-05-2021 Patient encounter procedure Johnny Turk MD Work Phone: General Surgery Comment on above: Calculus of gallblad gary without cholecystitis without obstruction (Primary Dx); Secondary biliary cirrhosis (HCC) Start: 07-03-2021 Telephone encounter Johnny Turk MD Work Phone: General Surgery Comment on above: Patient Question (ga llbladder ER [facility] [place]) Start: 07-03-2021 End: 07-03-2021 Patient encounter procedure Alma Ta APRN.SENIOR FIREWALL ENGINEER Work Phone: Internal Medicine [place] Comment on above: Dysuria (Primary Dx) ; Right upper quadrant abdominal pain; Chronic anticoagulation Start: 07-02-2021 End: 07-03-2021 Emergency department patient visit [facility] Start: 06-26-2021 End: 06-26-2021 ambulatory [facility] Work Phone: Hematology/Oncology Comment on above: Malignant neoplasm o f lower-inner quadrant of right breast of female, estrogen receptor positive (HCC) (Primary Dx) Start: 06-22-2021 Telephone encounter Corinna Arenas [facility] Ambulatory [facility] Comment on above: Anticoagulation Tele phone Fu (INR Home Test Result) Start: 06-20-2021 Telephone encounter [facility] Comment on above: Anticoagulation Tele phone Fu (Home INR result) Start: 06-19-2021 Telephone encounter Basilia Cueto PACKAG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 Work Phone: [place] [facility] Comment on above: Results (urine cultu re) Start: 06-05-2021 End: 06-05-2021 Patient encounter procedure Aby Bruner DO Work Phone: Vascular Surgery Comment on above: Venous (peripheral) insufficiency (Primary Dx) Start: 05-23-2021 ambulatory Jerrica Tarcy [facility] Ambulatory [facility] Comment on above: INR in therapeutic r jeannine Start: 05-23-2021 E-mail encounter fro m caregiver Jerrica Rothman [facility] CC [facility]ILD[employer] Start: 05-17-2021 End: 05-17-2021 Subsequent hospital visit by physician Xr [facility] Work Phone: Radiology Comment on above: Cough [R05.9] Start: 05-17-2021 ambulatory Mercy claros RT(R) Radiology Comment on above: Results Start: 05-17-2021 Patient encounter procedure Mercy Ridley RT(R) [facility] Start: 05-09-2021 ambulatory Jerrica Tarcy [facility] Ambulatory [facility] Comment on above: INR in therapeutic r jeannine Start: 05-09-2021 E-mail encounter fro m caregiver Jerrica Rothman [facility] CC [employer] BUILDING Start: 02-07-2021 Telephone encounter Galina caballero MD Work Phone: Internal Medicine [place] Comment on above: Medication Question Start: 11-27-2020 End: 11-27-2020 Subsequent hospital visit by physician Xr [facility] Work Phone: Radiology Comment on above: Fever, unspecified f ever cause [R50.9] Start: 05-05-2020 End: 05-05-2020 Subsequent hospital visit by physician Xr [facility] [place] Work Phone: Radiology Comment on above: Chronic [...] above: Detection Limit = 5P erformed at: [facility] [id number] [place], [place] [id number] Director: Jeremiah Bates MD, Phone: [phone] Start: 04-05-2024 Measurement of renal function Dr. Galina Iraheta MD Work Phone: Comment on above: GFR Calc Start: 04-05-2024 Percentage plasma ce ll count Dr. Galina Iraheta MD Work Phone: Start: 02-24-2024 Blood count complete auto&auto difrntl wbc Cassidy Arreola PACKAG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 Work Phone: Start: 11-25-2023 Blood count complete [...] ribs unilatera l 2 views Cassidy Arreola PACKAG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 Work Phone: Start: 03-22-2022 Blood count complete [...] et rgnt auto w/o microscopy An Ta APRN.SENIOR FIREWALL ENGINEER Work Phone: Start: 07-03-2021 Computed tomography of abdomen and pelvis with intravenous contrast Start: 05-17-2021 Radiologic exam ches t 2 views Darline Hurley APRN.SENIOR FIREWALL ENGINEER Work Phone: Start: 01-12-2021 Antibody screen Comment on above: Performed By: #### 5 [id number] #### [facility] CLIA [id number] [address] [place] Start: 01-09-2021 Colonoscopy Aby encarnacion DO Work Phone: Start: 11-27-2020 Radiologic exam ches t 2 views Joann Haynes APRN.SENIOR FIREWALL ENGINEER Work Phone: Start: 05-05-2020 Radiologic exam ches t 2 views Alma Shankar PACKAG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 Work Phone: Measurement of occul t blood in stool specimen using immunoassay Urine culture Urine culture Dr. Galina caballero Work Phone: Plan of Treatment Date Care Activity Detail Author Start: 06-12-2027 Diabetes Screening Diabetes Screening [facility] Start: 02-23-2027 Diabetes Screening Diabetes Screening [facility] Start: 11-24-2026 Diabetes Screening Diabetes Screening [facility] Start: 07-03-2026 Diabetes Screening Diabetes Screening [facility] Start: 06-05-2025 Screening for osteoporosis Bone Density Screening [facility] Start: 03-14-2025 DIABETES SCREEN DIABETES SCREEN [facility] Start: 03-14-2025 Diabetes Screening Diabetes Screening [facility] Start: 11-15-2024 Influenza vaccination Influenza Vaccine (Season Ended) [facility] Start: 09-21-2024 End: 09-21-2024 ambulatory Hematology/Oncology Comment on above: 6 MO OV* CBC/IRON STUDIES(POR T)/OV TODAY Start: 08-27-2024 End: 08-27-2024 ambulatory 08/27/2024 10:00 AM EDT [facility] Rheumatology [address] [place], [place] [id number] Thalia Monterroso MD [facility] [place], [place] [id number] RA Rheumatology Comment on above: RA Start: 08-18-2024 XR forearm, 2 views Forearm 2 Views [facility] Start: 08-18-2024 XR Radius and Ulna 2 Views [facility] Start: 08-13-2024 Plain x-ray of humerus Humerus min 2 Views [facility] Start: 08-13-2024 XR forearm, 2 views Forearm 2 Views [facility] Start: 08-13-2024 XR Humerus GE 2 Views [facility] Start: 08-13-2024 XR Radius and Ulna 2 Views [facility] Start: 08-13-2024 DIABETES SCREEN DIABETES SCREEN [facility] Start: 08-06-2024 Venous catheter care management [facility] Start: 2024 DIABETES SCREEN DIABETES SCREEN [facility] Start: 07-11-2024 DIABETES SCREEN DIABETES SCREEN [facility] Start: 07-06-2024 DIABETES SCREEN DIABETES SCREEN [facility] Start: 07-05-2024 DIABETES SCREEN DIABETES SCREEN [facility] Start: 06-11-2024 End: 06-11-2024 ambulatory 06/11/2024 2:00 PM EDT [facility]fusion Center Hematology/Oncology [address] [place] [address] Wstr, Lab/[place] [facility] [address] [place] [address] port flush* Hematology/Oncology Comment on above: port flush* Start: 06-01-2024 End: 06-01-2024 Patient encounter procedure 06/01/2024 10:00 AM EDT Office Visit URO/Gynecology [address] [place] [address] Vikash Slyvester, PACKAG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 [address] [place] [address] FOLLOWUP URO/Gynecology Comment on above: FOLLOWUP Start: 05-22-2024 DIABETES SCREEN DIABETES SCREEN [facility] Start: 05-21-2024 End: 05-21-2024 Patient encounter procedure 05/21/2024 11:40 AM EST Office Visit Cardiology [address] [address] Annmarie Shell MD [address] [place] [address] follow up Cardiology Comment on above: follow up Start: 05-19-2024 End: 05-19-2024 ambulatory 05/19/2024 11:00 AM EST Infusion Center Hematology/Oncology [address] [place] [address] 2ND Hematology/Oncology Comment on above: 2ND Start: 03-25-2024 End: 03-25-2024 ambulatory 03/25/2024 10:00 AM EST Visit (SP) Office Hematology/Oncology [address] [place] [address] 2ND Hematology/Oncology Comment on above: 2ND Start: 03-24-2024 End: 03-24-2024 ambulatory 03/24/2024 11:00 AM EST Infusion Center Hematology/Oncology [address] [place] [address] 2ND Hematology/Oncology Comment on above: 2ND Start: 03-19-2024 End: 03-19-2024 Patient encounter procedure Radiology Comment on above: Bilateral hip pain [M25.551, M25.552] CT Pelvis/Chest/Abd Start: 03-19-2024 End: 03-19-2024 ambulatory 03/19/2024 9:30 AM EST Infusion Center Hematology/Oncology [address] [place] [address] Wstr, Lab/[place] [facility] [address] [place] [address] CREATININE(S)(PORT)/KEEP ACCESSED FOR IMAGING* Hematology/Oncology Comment on above: CREATININE(S)(PORT)/KEEP ACCESSED FOR IM AGING* Start: 03-17-2024 Advance Directive Discussion Advance Directive Discussion [facility] Start: 03-12-2024 End: 03-12-2024 ambulatory 03/12/2024 2:30 PM EST Infusion Center Hematology/Oncology [address] [place] [address] 2nd Hematology/Oncology Comment on above: 2nd Start: 03-09-2024 End: 03-09-2024 Patient encounter procedure Cat Scan Comment on above: CT Pelvis/Chest/Abd Start: 03-08-2024 End: 03-08-2024 ambulatory 03/08/2024 3:00 PM EST Infusion Center Hematology/Oncology [address] [place] [address] 2nd Hematology/Oncology Comment on above: 2nd Start: 03-05-2024 End: 03-05-2024 ambulatory Rheumatology Comment on above: PRM f up 2nd Start: 03-03-2024 End: 03-03-2024 ambulatory 03/03/2024 3:00 PM EST Infusion Center Hematology/Oncology [address] [place] [address] 2nd Hematology/Oncology Comment on above: 2nd Start: 02-24-2024 End: 05-25-2024 CREATININE BLD CREATININE BLD Lab Routine Iron deficiency anemia due to chronic blood loss Bilateral hip pain Generalized abdominal pain Abdominal bloating Personal history of breast cancer Occult blood in stools Expected: 02/24/2024, Expires: 05/25/2024 [facility] Comment on above: Expected: 02/24/2024, Expires: Start: 02-24-2024 End: 02-24-2024 ambulatory Hematology/Oncology Comment on above: CBC/iron studies (PORT)/OV TODAY* 6MO OV Start: 02-16-2024 End: 02-16-2024 Patient encounter procedure 02/16/2024 2:00 PM EST Office Visit Cardiology [address] [phone] Annmarie Shell MD [address] [place], [place] [phone] follow up Cardiology Comment on above: follow up Start: 01-29-2024 End: 01-29-2024 ambulatory 01/29/2024 11:00 AM EST Visit (SP) Office Hematology/Oncology [address] [place] [address] 2ND Hematology/Oncology Comment on above: 2ND Start: 01-28-2024 End: 01-28-2024 ambulatory Hematology/Oncology Comment on above: 2ND Start: 12-16-2023 End: 12-16-2023 Patient encounter procedure 12/16/2023 2:20 PM EDT Office Visit Cardiology [address] [id number] Cecilio Ibarra DO [address] [place] [address] 6 month follow up Cardiology Comment on above: 6 month follow up Start: 12-04-2023 End: 12-04-2023 [facility] Hematology/Oncology Comment on above: Q8WK RENFLEXIS(PORT)/ORDERING PROV DR RA Pena/MDCR* 2ND Start: 11-25-2023 End: 02-24-2024 Ferritin [Mass/volume] in Serum or Plasma [facility] Comment on above: Expected: 11/25/2023, Expires: Start: 11-25-2023 End: 02-24-2024 Iron and Iron binding capacity panel - Serum or Plasma [facility] Work Phone: Comment on above: Expected: 11/25/2023, Expires: Start: 11-25-2023 End: 11-25-2023 ambulatory 11/25/2023 1:30 PM EDT Infusion Center Hematology/Oncology [address] [place] [address] Wstr, Lab/[place] [facility] [address] [place] [address] CBC/iron studies (PORT)/OV TODAY* Hematology/Oncology Comment on above: CBC/iron studies (PORT)/OV TODAY* Start: 11-16-2023 Covid-19 Vaccine ( season) Covid-19 Vaccine () [facility] Start: 11-16-2023 Covid-19 Vaccine ( season) Covid-19 Vaccine ( season) [facility] Start: 11-16-2023 Influenza vaccination [facility] Start: 11-14-2023 End: 02-13-2024 25-hydroxyvitamin D3 [Mass/volume] in Serum or Plasma VITAMIN D 25 HYDROXY Lab Routine Rheumatoid arthritis involving multiple sites, unspecified whether rheumatoid factor present (HCC) Senile osteoporosis Expected: 11/14/2023, Expires: 02/13/2024 [facility] Work Phone: Comment on above: Expected: 11/14/2023, Expires: Start: 11-14-2023 End: 11-14-2023 ambulatory Rheumatology Comment on above: PRM f up Start: 10-09-2023 End: 10-09-2023 Infusion Center 10/09/2023 11:00 AM EDT Infusion Center Hematology/Oncology [address] [place] [address] Q6WK RENFLEXIS(PORT)/ORDERING PROV DR MONTERROSO/MDCR* THEN Q8WK Hematology/Oncology Comment on above: Q6WK RENFLEXIS(PORT)/ORDERING PROV DR RA Pena/MARCIALR* THEN Q8WK Start: 09-12-2023 End: 09-12-2023 ambulatory 09/12/2023 11:00 AM T Infusion Center Hematology/Oncology [address] [place] [address] daughter requested time Hematology/Oncology Comment on above: daughter requested time Start: 09-11-2023 End: 09-11-2023 Infusion Center 09/11/2023 9:00 AM [facility] Infusion Center Hematology/Oncology [address] [place] [address] Q2WK RENFLEXIS(PORT)/ORDERING PROV DR MONTERROSO/NISH* wk0,2,6,then q8wk Hematology/Oncology Comment on above: Q2WK RENFLEXIS(PORT)/ORDERING PROV DR RA Pena/NISH* wk0,2,6,then q8wk Start: 08-28-2023 End: 08-28-2023 Infusion Center 08/28/2023 11:00 AM [facility] Infusion Center Hematology/Oncology [address] [place] [address] START Q0WK RENFLEXIS(PORT)/ORDERING PROV DR MONTERROSO/NISH* wk0,2,6,then q8wk Hematology/Oncology Comment on above: START Q0WK RENFLEXIS(PORT)/ORDERING PROV DR MONTERROSO/NISH* wk0,2,6,then q8wk Start: 08-19-2023 End: 08-19-2023 ambulatory Hematology/Oncology Comment on above: CBC/iron studies (PORT)/OV TODAY* 6MO OV(PORT)/LABS EA RLY* Start: 07-04-2023 End: 10-03-2023 BLOOD TB SCREEN [facility] Work Phone: Comment on above: Expected: 07/04/2023, Expires: Start: 07-04-2023 End: 10-03-2023 Chronic hepatitis differentiation between hepatitis B and C virus panel - Serum or Plasma [facility] Work Phone: Comment on above: Expected: 07/04/2023, Expires: 4 Start: 07-04-2023 End: 10-03-2023 Cyclic citrullinated peptide IgG Ab [Units/volume] in Serum or Plasma [facility] Work Phone: Comment on above: Expected: 07/04/2023, Expires: Start: 05-20-2023 End: 08-19-2023 CBC W Auto Differential panel - Blood CBC + DIFF Lab STAT Malignant neoplasm of lower-inner quadrant of right breast of female, estrogen receptor positive (HCC) Iron deficiency anemia due to chronic blood loss Expected: 05/20/2023, Expires: 08/19/2023 [facility] Work Phone: Comment on above: Expected: 05/20/2023, Expires: Start: 05-20-2023 End: 08-19-2023 Ferritin [Mass/volume] in Serum or Plasma FERRITIN BLD Lab Routine Malignant neoplasm of lower-inner quadrant of right breast of female, estrogen receptor positive (HCC) Iron deficiency anemia due to chronic blood loss Expected: 05/20/2023, Expires: 08/19/2023 [facility] Work Phone: Comment on above: Expected: 05/20/2023, Expires: Start: 05-20-2023 End: 08-19-2023 Iron and Iron binding capacity panel - Serum or Plasma IRON + TIBC Lab Routine Malignant neoplasm of lower-inner quadrant of right breast of female, estrogen receptor positive (HCC) Iron deficiency anemia due to chronic blood loss Expected: 05/20/2023, Expires: 08/19/2023 [facility] Work Phone: Comment on above: Expected: 05/20/2023, Expires: Start: 03-17-2023 Advance Directive Discussion Advance Directive Discussion [facility] Start: 11-17-2022 Urine microalbumin profile [facility] Start: 11-15-2022 Covid-19 Vaccine () Covid-19 Vaccine () [facility] Start: 11-15-2022 Influenza vaccination [facility] Start: 09-19-2022 End: 11-19-2022 CBC panel - Blood by Automated count CBC Lab Routine Paroxysmal atrial fibrillation (HCC) Rheumatic mitral regurgitation Essential hypertension Mixed hyperlipidemia Obstructive sleep apnea syndrome Shortness of breath PAF (paroxysmal atrial fibrillation) (HCC) SVT (supraventricular tachycardia) (HCC) Expected: 09/19/2022, Expires: 11/19/2022 [facility] Work Phone: Comment on above: Expected: 09/19/2022, Expires: 3 Start: 04-17-2022 End: 06-17-2022 CBC W Auto Differential panel - Blood CBC + DIFF Lab STAT Iron deficiency anemia due to chronic blood loss Malignant neoplasm of lower-inner quadrant of right breast of female, estrogen receptor positive (HCC) Expected: 04/17/2022, Expires: 06/17/2022 [facility] Work Phone: Comment on above: Expected: 04/17/2022, Expires: 3 Start: 04-17-2022 End: 06-17-2022 Ferritin [Mass/volume] in Serum or Plasma FERRITIN BLD Lab Routine Iron deficiency anemia due to chronic blood loss Malignant neoplasm of lower-inner quadrant of right breast of female, estrogen receptor positive (HCC) Expected: 04/17/2022, Expires: 06/17/2022 [facility] Work Phone: Comment on above: Expected: 04/17/2022, Expires: 3 Start: 04-17-2022 End: 06-17-2022 Iron and Iron binding capacity panel - Serum or Plasma IRON + TIBC Lab Routine Iron deficiency anemia due to chronic blood loss Malignant neoplasm of lower-inner quadrant of right breast of female, estrogen receptor positive (HCC) Expected: 04/17/2022, Expires: 06/17/2022 [facility] Work Phone: Comment on above: Expected: 04/17/2022, Expires: 3 Start: 04-17-2022 End: 06-17-2022 RETIC COUNT RETIC COUNT Lab Routine Iron deficiency anemia due to chronic blood loss Malignant neoplasm of lower-inner quadrant of right breast of female, estrogen receptor positive (HCC) Expected: 04/17/2022, Expires: 06/17/2022 [facility] Work Phone: Comment on above: Expected: 04/17/2022, Expires: 3 Start: 04-17-2022 End: 06-17-2022 Transferrin receptor.soluble [Mass/volume] in Serum or Plasma SOLUBLE TRANS RECEPTOR Lab Routine Iron deficiency anemia due to chronic blood loss Malignant neoplasm of lower-inner quadrant of right breast of female, estrogen receptor positive (HCC) Expected: 04/17/2022, Expires: 06/17/2022 [facility] Work Phone: Comment on above: Expected: 04/17/2022, Expires: 3 Start: 03-17-2022 ADVANCE DIRECTIVE DISCUSSION ADVANCE DIRECTIVE DISCUSSION [facility] Start: 03-12-2022 End: 05-12-2022 CBC W Ordered Manual Differential panel - Blood PATHOLOGIST INTERPRETATION WITH CBC AND DIFF Lab Routine Iron deficiency anemia due to chronic blood loss Expected: 03/12/2022, Expires: 05/12/2022 [facility] Work Phone: Comment on above: Expected: 03/12/2022, Expires: 3 Start: 03-06-2022 Administration of blood product [facility] Start: 03-06-2022 [facility] Start: 01-09-2022 Colonoscopy COLONOSCOPY [facility] Start: 01-09-2022 Screening for malignant neoplasm of colon Colonoscopy [facility] Start: 12-28-2021 Administration of blood product [facility] Start: 11-15-2021 Influenza vaccination INFLUENZA (#1) [facility] Start: 10-29-2021 End: 12-29-2021 CBC W Auto Differential panel - Blood CBC + DIFF Lab Routine BRBPR (bright red blood per rectum) Expected: 10/29/2021, Expires: 12/29/2021 [facility] Work Phone: Comment on above: Expected: 10/29/2021, Expires: 2 Start: 10-18-2021 [facility] Work Phone: Start: 10-18-2021 Administration of blood product [facility] Work Phone: Start: 10-18-2021 [facility] Work Phone: Start: 10-15-2021 End: 12-15-2021 CBC W Auto Differential panel - Blood CBC + DIFF Lab Routine Chronic anticoagulation Expected: 10/15/2021, Expires: 12/15/2021 [facility] Work Phone: Comment on above: Expected: 10/15/2021, Expires: 2 Start: 10-15-2021 End: 12-15-2021 PT panel - Platelet poor plasma by Coagulation assay PROTHROMBIN TIME/PT Lab Routine Chronic anticoagulation Expected: 10/15/2021, Expires: 12/15/2021 [facility] Work Phone: Comment on above: Expected: 10/15/2021, Expires: 2 Start: 08-23-2021 Anes hysteroscopy&/hysterosal pingography w/bx ANESTH HYSTEROSCOPE/GRAPH [facility] Work Phone: Start: 08-23-2021 Hysteroscopy bx endometrium&/polypc w/wo d&c HYSTEROSCOPY BIOPSY [facility] Work Phone: Start: 08-23-2021 Patient discharge [facility] Work Phone: Start: 08-23-2021 Ambulation without limitation [facility] Work Phone: Start: 08-23-2021 Medical regimen orders management [facility] Work Phone: Start: 08-23-2021 Medication education [facility] Work Phone: Start: 08-23-2021 Taking patient vital signs [facility] Work Phone: Start: 08-23-2021 Vital signs measurements [facility] Work Phone: Start: 08-23-2021 [facility] Work Phone: Start: 08-10-2021 End: 10-10-2021 Bacteria identified in Urine by Culture URINE CULTURE Microbiology Routine Dysuria Expected: 08/10/2021, Expires: 10/10/2021 [facility] Work Phone: Comment on above: Expected: 08/10/2021, Expires: 2 Start: 04-18-2021 Screening for malignant neoplasm of cervix Cervical Cancer Screening [facility] Start: 03-24-2021 COVID-19 VACCINE (4 - Booster for Moderna series) COVID-19 VACCINE (4 - Booster for Moderna series) [facility] Start: 03-17-2021 ADVANCE DIRECTIVE DISCUSSION ADVANCE DIRECTIVE DISCUSSION [facility] Start: 01-17-2021 COVID-19 VACCINE (4 - Booster for Moderna series) COVID-19 VACCINE (4 - Booster for Moderna series) [facility] Start: 01-17-2021 COVID-19 VACCINE (4 - Moderna series) COVID-19 VACCINE (4 - Moderna series) [facility] Start: 08-02-2011 Shingrix Vaccine (1 of 2) Shingrix Vaccine (1 of 2) [facility] Start: 08-02-2011 SHINGRIX VACCINE (2 of 3) SHINGRIX VACCINE (2 of 3) [facility] Start: 07-13-2011 RSV Vaccine (1 - 1-dose 75+ series) RSV Vaccine (1 - 1-dose 75+ series) [facility] Start: 09-15-2003 Medicare Annual Wellness Visit Medicare Annual Wellness Visit [facility] Start: 1996 HEPATITIS B (1 of 3 - Risk 3-dose series) HEPATITIS B (1 of 3 - Risk 3-dose series) [facility] Start: 1996 Hepatitis B Vaccine (1 of 3 - Risk 3-dose series) Hepatitis B Vaccine (1 of 3 - Risk 3-dose series) [facility] Start: 1996 RSV Vaccine (1 - 1-dose 60+ series) RSV Vaccine (1 - 1-dose 60+ series) [facility] Start: 07-13-1954 HEPATITIS A (1 of 2 - Risk 2-dose series) HEPATITIS A (1 of 2 - Risk 2-dose series) [facility] Start: 07-13-1955 Hepatitis A Vaccine (1 of 2 - Risk 2-dose series) Hepatitis A Vaccine (1 of 2 - Risk 2-dose series) [facility] Start: 07-13-1955 HEPATITIS B (1 of 3 - Risk 3-dose series) HEPATITIS B (1 of 3 - Risk 3-dose series) [facility] Start: 1954 Anxiety Screening Anxiety Screening [facility] Start: 1937 HEPATITIS A (1 of 2 - Risk 2-dose series) [facility] 25-hydroxyvitamin D3 [Mass/volume] in Serum or Plasma VITAMIN D 25 HYDROXY Lab Routine Rheumatoid arthritis involving multiple sites, unspecified whether rheumatoid factor present (HCC) Senile osteoporosis 11/25/2023 1:46 PM EDT [facility] Work Phone: Bacteria identified in Urine by Culture URINE CULTURE Microbiology Routine Dysuria Ordered: 08/08/2021 [facility] Work Phone: Comment on above: Ordered: 08/08/2021 Bacteria identified in Urine by Culture URINE CULTURE Microbiology Routine Recurrent UTI Mixed stress and urge urinary incontinence 08/30/2021 2:06 PM EDT [facility] Work Phone: End: 09-26-2022 Bacteria identified in Urine by Culture URINE CULTURE Microbiology Routine Recurrent UTI 12 Occurrences starting 09/26/2021 until 09/26/2022 [facility] Work Phone: Comment on above: 12 Occurrences starting 09/26/2021 until 09/26/2022 Bacteria identified in Urine by Culture Urine Culture [facility] Work Phone: End: 11-13-2024 C reactive protein [Mass/volume] in Serum or Plasma C-REACTIVE PROTEIN Lab Routine Rheumatoid arthritis involving multiple sites, unspecified whether rheumatoid factor present (HCC) Senile osteoporosis Every 3 months for 5 Occurrences starting 11/14/2023 until 11/13/2024 [facility] Comment on above: Every 3 months for 5 Occurrences startin g 11/14/2023 until 11/13/2024 C reactive protein [Mass/volume] in Serum or Plasma C-REACTIVE PROTEIN Lab Routine Rheumatoid arthritis involving multiple sites, unspecified whether rheumatoid factor present (HCC) Senile osteoporosis 11/25/2023 1:46 PM EDT [facility] C reactive protein [Mass/volume] in Serum or Plasma C-REACTIVE PROTEIN Lab Routine Rheumatoid arthritis involving multiple sites, unspecified whether rheumatoid factor present (HCC) Senile osteoporosis 02/24/2024 1:28 PM SARAH [facility] Work Phone: C reactive protein [Mass/volume] in Serum or Plasma C-REACTIVE PROTEIN Lab Routine Rheumatoid arthritis involving multiple sites, unspecified whether rheumatoid factor present (HCC) Senile osteoporosis 06/11/2024 1:54 PM EDT [facility] End: 11-13-2024 CBC W Auto Differential panel - Blood COMPLETE BLOOD COUNT AND DIFFERENTIAL Lab Routine Rheumatoid arthritis involving multiple sites, unspecified whether rheumatoid factor present (HCC) Senile osteoporosis Every 3 months for 5 Occurrences starting 11/14/2023 until 11/13/2024 [facility] Comment on above: Every 3 months for 5 Occurrences startin g 11/14/2023 until 11/13/2024 End: 11-13-2024 Comprehensive metabolic 2000 panel - Serum or Plasma COMPREHENSIVE METABOLIC PANEL Lab Routine Rheumatoid arthritis involving multiple sites, unspecified whether rheumatoid factor present (HCC) Senile osteoporosis Every 3 months for 5 Occurrences starting 11/14/2023 until 11/13/2024 [facility] Comment on above: Every 3 months for 5 Occurrences startin g 11/14/2023 until 11/13/2024 End: 03-25-2025 CT Abdomen and Pelvis W contrast IV CT ABD/PEL W IVCON Radiology Routine Iron deficiency anemia due to chronic blood loss Bilateral hip pain Generalized abdominal pain Abdominal bloating Personal history of breast cancer Occult blood in stools 1 Occurrences starting 02/24/2024 until 03/25/2025 [facility] Comment on above: 1 Occurrences starting 02/24/2024 until 03/25/2025 CT Abdomen and Pelvi s W contrast IV CT ABD/PEL W IVCON Radiology Routine Iron deficiency anemia due to chronic blood loss Bilateral hip pain Generalized abdominal pain Abdominal bloating Personal history of breast cancer Occult blood in stools 03/19/2024 11:42 AM EST [facility] Work Phone: End: 03-25-2025 CT Chest W contrast IV CT CHEST W IVCON Radiology Routine Iron deficiency anemia due to chronic blood loss Bilateral hip pain Generalized abdominal pain Abdominal bloating Personal history of breast cancer Occult blood in stools 1 Occurrences starting 02/24/2024 until 03/25/2025 [facility] Comment on above: 1 Occurrences starting 02/24/2024 until 03/25/2025 CT Chest W contrast IV CT CHEST W IVCON Radiology Routine Iron deficiency anemia due to chronic blood loss Bilateral hip pain Generalized abdominal pain Abdominal bloating Personal history of breast cancer Occult blood in stools 03/19/2024 11:42 AM EST [facility] DXA Skeletal system.axial Views for bone density DXA-AXIAL SKELETON Radiology Routine On prednisone therapy Screening for osteoporosis 06/06/2023 2:38 PM EDT [facility] Work Phone: End: 09-05-2022 ECG COMPLETE [facility] Work Phone: Comment on above: 1 Occurrences starting 09/05/2021 until 09/05/2022 End: 11-13-2024 Erythrocyte sedimentation rate SEDIMENTATION RATE, WESTERGREN Lab Routine Rheumatoid arthritis involving multiple sites, unspecified whether rheumatoid factor present (HCC) Senile osteoporosis Every 3 months for 5 Occurrences starting 11/14/2023 until 11/13/2024 [facility] Comment on above: Every 3 months for 5 Occurrences startin g 11/14/2023 until 11/13/2024 Erythrocyte sedimentation rate SEDIMENTATION RATE, WESTERGREN Lab Routine Rheumatoid arthritis involving multiple sites, unspecified whether rheumatoid factor present (HCC) Senile osteoporosis 06/11/2024 1:54 PM EDT [facility] Work Phone: Ferritin [Mass/volum e] in Serum or Plasma FERRITIN Lab Routine Malignant neoplasm of lower-inner quadrant of right breast of female, estrogen receptor positive (HCC) Iron deficiency anemia due to chronic blood loss 02/24/2024 1:28 PM EST [facility] Work Phone: Iron and Iron bindin g capacity panel - Serum or Plasma IRON AND TIBC Lab Routine Malignant neoplasm of lower-inner quadrant of right breast of female, estrogen receptor positive (HCC) Iron deficiency anemia due to chronic blood loss 02/24/2024 1:28 PM EST [facility] OCCULT BLD EXAM-DIAG OCCULT BLD EXAM-DIAG Microbiology Routine Iron deficiency anemia due to chronic blood loss Ordered: 03/12/2022 [facility] Work Phone: Comment on above: Ordered: 03/12/2022 PATHOLOGIST INTERPRETATION CBC/DIFF PATHOLOGIST INTERPRETATION CBC/DIFF Lab STAT Iron deficiency anemia due to chronic blood loss 03/22/2022 1:36 PM EST [facility] [employer] Work Phone: Patient Education [facility] Work Phone: Patient referral [facility] Work Phone: PT panel - Platelet poor plasma by Coagulation assay PROTHROMBIN TIME/PT Lab Routine Chronic anticoagulation 10/16/2021 9:44 AM EDT [facility] [employer] Work Phone: Urinalysis complete panel - Urine [facility] [employer] Work Phone: End: 03-25-2025 XR HIP BILATERAL 5V PEL/AP/LAT EACH HIP XR HIP BILATERAL 5V PEL/AP/LAT EACH HIP Radiology Routine Bilateral hip pain 1 Occurrences starting 02/24/2024 until 03/25/2025 [facility] [employer] Work Phone: Comment on above: 1 Occurrences starting 02/24/2024 until 03/25/2025 XR HIP BILATERAL 5V PEL/AP/LAT EACH HIP XR HIP BILATERAL 5V PEL/AP/LAT EACH HIP Radiology Routine Bilateral hip pain 03/19/2024 10:00 AM EST [employer] [facility] [employer] Work Phone: End: 07-09-2024 XR Knee - bilateral 4 Views XR KNEE GENERAL 4V AP BOTH/PA BOTH/LAT/MERC BILATERAL Radiology Routine Primary osteoarthritis of both knees 1 Occurrences starting 06/10/2023 until 07/09/2024 [facility] [employer] Work Phone: Comment on above: 1 Occurrences starting 06/10/2023 until 07/09/2024 XR Knee - bilateral 4 Views XR KNEE GENERAL 4V AP BOTH/PA BOTH/LAT/MERC BILATERAL Radiology Routine Primary osteoarthritis of both knees 06/18/2023 8:26 AM EDT [facility] [employer] Work Phone: End: 07-05-2023 XR RIBS 2V AP/OBL RIGHT XR RIBS 2V AP/OBL RIGHT Radiology Routine Personal history of breast cancer Rib pain on right side 1 Occurrences starting 06/05/2022 until 07/05/2023 [facility] Work Phone: Comment on above: 1 Occurrences starting 06/05/2022 until 07/05/2023 XR RIBS 2V AP/OBL RIGHT XR RIBS 2V AP/OBL RIGHT Radiology Routine Personal history of breast cancer Rib pain on right side 06/05/2022 12:04 PM EDT [facility] Work Phone: End: 12-25-2023 XR WRIST GENERAL 3V PA/LAT/OBL RIGHT XR WRIST GENERAL 3V PA/LAT/OBL RIGHT Radiology Routine Pain in right wrist 1 Occurrences starting 11/25/2022 until 12/25/2023 [facility] Work Phone: Comment on above: 1 Occurrences starting 11/25/2022 until 12/25/2023 XR WRIST GENERAL 3V PA/LAT/OBL RIGHT XR WRIST GENERAL 3V PA/LAT/OBL RIGHT Radiology Routine Pain in right wrist 11/25/2022 2:29 PM EDT [facility] Work Phone: [facility] Immunizations Immunization Date Immunization Notes Care Provider Kevin evans 01-18-2021 influenza, high-dose , quadrivalent vaccine (FLUZONE HIGH DOSE QUADRIVALENT) Aby Bruner DO Work Phone: [facility] Work Phone: 01-18-2021 influenza virus vaccine, unspecified formulation Stella Preciado PA-C Work Phone: [facility] 11-22-2020 COVID-19 vaccine, ag e 12+ yr ([employer] - PURPLE TOP) Aby Bruner DO Work Phone: [facility] 05-04-2020 COVID-19 vaccine, fu ll dose (MODERNA) Aby Bruner DO Work Phone: [facility] 04-06-2020 COVID-19 vaccine, fu ll dose (MODERNA) Aby Bruner DO Work Phone: [facility] 12-18-2019 influenza, high-dose , quadrivalent vaccine (FLUZONE HIGH DOSE QUADRIVALENT) Aby Bruner DO Work Phone: [facility] 12-30-2018 influenza, high dose seasonal, preservative-free Aby Bruner DO Work Phone: [facility] Work Phone: 12-09-2017 influenza, high dose seasonal, preservative-free Aby Bruner DO Work Phone: [facility] 12-02-2016 influenza, high dose seasonal, preservative-free Aby Bruner DO Work Phone: [facility] Work Phone: 12-05-2015 influenza, high dose seasonal, preservative-free Aby Bruner DO Work Phone: [facility] 01-10-2015 pneumococcal conjuga te vaccine, 13 valent Aby Bruner DO Work Phone: [facility] Work Phone: 12-12-2014 influenza, high dose seasonal, preservative-free Aby Bruner DO Work Phone: [facility] 12-22-2013 influenza, seasonal, injectable Aby Bruner DO Work Phone: [facility] 01-09-2013 influenza virus vaccine, unspecified formulation Aby Bruner DO Work Phone: [facility] Work Phone: 11-17-2012 tetanus toxoid, redu issac diphtheria toxoid, and acellular pertussis vaccine, adsorbed Aby Bruner DO Work Phone: [facility] 01-16-2012 influenza virus vaccine, unspecified formulation Aby Bruner DO Work Phone: [facility] 06-07-2011 zoster vaccine, live Opal Bruner DO Work Phone: [facility] 02-01-2011 influenza virus vaccine, unspecified formulation Aby Bruner DO Work Phone: [facility] Work Phone: 01-29-2010 influenza virus vaccine, unspecified formulation Aby Bruner DO Work Phone: [facility] 12-24-2008 influenza virus vaccine, unspecified formulation Aby Bruner DO Work Phone: [facility] 01-20-2008 influenza virus vaccine, unspecified formulation Aby Bruner DO Work Phone: [facility] 12-21-2007 pneumococcal polysaccharide vaccine, 23 valent Aby Bruner DO Work Phone: [facility] Work Phone: 01-14-2007 influenza virus vaccine, unspecified formulation Aby Bruner DO Work Phone: [facility] Work Phone: 01-27-2006 influenza virus vaccine, unspecified formulation Aby Bruner DO Work Phone: [facility] 01-24-2005 influenza virus vaccine, unspecified formulation Aby Bruner DO Work Phone: [facility] Work Phone: 05-15-2002 tetanus and diphther ia toxoids, adsorbed, preservative free, for adult use (2 Lf of tetanus toxoid and 2 Lf of diphtheria toxoid) Aby Bruner DO Work Phone: [facility] Work Phone: NEGATED: Highlighted row has not occurred!01-12-2021 influenza, high-dose, quadrivalent vaccine (FLUZONE HIGH DOSE QUADRIVALENT) Aby Bruner DO Work Phone: [facility] Comment on above: Deferred: Patient Re fused - states she wants to wait to get it at scheduled appt in [facility] Payers Date Payer Category Payer Medicaid [id number] 2024 Medicaid [place]ICAID [place] [id number] 2023 Self-pay [id number] 2016 [facility] DICARE SUPPLE[facility] [id number] 2016 Unknown ANTHEM ANTHEM ME DICARE SUPPLEMENT [id number] 2016-Present [phone] [address] [place] [address] Indemnity [id number] 2016 Unknown ANTHEM ANTHEM ME DICARE SUPPLEMENT [id number] 2016-Present [phone] [address] [place] [address] Indemnity [id number] 2003 Medicare MEDICARE MEDICAR E A AND B [id number] 2003-Present [phone] [address] [address] [place] [address] Medicare [id number] 2003 Medicare [id number] 2003 Unknown [id number] 2003 Medicare [id number] Unknown [id number]. 462 Unknown [id number] 2840.1.332372.3.579.2. 462 Unknown [id number] 2.840.1.449861.3.579.2. 462 Unknown [id number] 2.840.1.084286.3.579.2. 462 Unknown [id number] 2.16.840.1.881299.3.579.2. 462 Unknown [id number] 2.16.840.1.034540.3.579.2. 462 Unknown [id number] 2.16.840.1.205676.3.579.2. 462 Unknown [id number] 2.16.840.1.059349.3.579.2. 462 Unknown [id number] 2.16.840.1.255587.3.579.2. 462 Unknown [id number] 2..840.1.389474.3.579.2. 462 Unknown [id number] 2.840.1.597305.3.579.2. 462 Unknown [id number] 2.840.1.420018.3.579.2. 462 Unknown [id number] 2.840.1.969119.3.579.2. 462 Unknown [id number] 2.840.1.441614.3.579.2. 462 Unknown [id number] 2.840.1.729776.3.579.2. 462 Unknown [id number] 2.840.1.065741.3.579.2. 462 Unknown [id number] 2.840.1.278673.3.579.2. 462 Unknown [id number] 2.840.1.425809.3.579.2. 462 Unknown [id number] 2.840.1.303757.3.579.2. 462 Unknown [id number] 2.16.840.1.395162.3.579.2. 462 Unknown [id number] 2.16.840.1.778422.3.579.2. 462 Unknown [id number] 2.16.840.1.226377.3.579.2. 462 Unknown [id number] 2.840.1.088621.3.579.2. 462 Unknown [id number] 2.16.840.1.407452.3.579.2. 462 Unknown [id number] 2.16.840.1.432294.3.579.2. 462 Unknown [id number] 2.16.840.1.444033.3.579.2. 462 Unknown [id number] 2.16.840.1.703322.3.579.2. 462 Unknown [id number] 2.16.840.1.066438.3.579.2. 462 Unknown [id number] 2.16.840.1.301197.3.579.2. 462 Unknown [id number] 2.16.840.1.419646.3.579.2. 462 Unknown [id number] 2.16.840.1.227398.3.579.2. 462 Unknown [id number] 2.16.840.1.332418.3.579.2. 462 Social History Date Type Detail Facility Start: 01-02-2022 End: 08-13-2024 Tobacco smoking status NHIS Never smoked tobacco [facility] Start: 06-05-2021 End: 02-27-2024 Alcohol intake Current non-drinker of alcohol (finding) [facility] Start: 01-23-2020 End: 01-18-2021 History SDOH Alcohol Frequency 1 [facility] Start: 01-23-2020 History SDOH Social Connections Phone 5 [facility] Start: 01-23-2020 History SDOH Social Connections Get Together 98 [facility] Start: 01-23-2020 History SDOH Social Connections Living 3 [facility] Start: 01-23-2020 End: 01-18-2021 History SDOH Stress 2 [facility] Start: 01-23-2020 Education 17 [facility] Start: 1935 Sex Assigned At Female C [facility] Work Phone: Start: 04-05-2020 End: 01-21-2022 Exposure to SARS-CoV-2 (event) Not sure [facility] Start: 06-09-2021 End: 08-08-2021 Exposure to SARS-CoV-2 (event) Unable to assess [facility] Work Phone: Start: 07-03-2021 End: 04-07-2023 Tobacco smoking status NHIS Unknown if ever smoked [facility] Start: 02-15-2021 None [facility] Start: 02-15-2021 Non-smoker [facility] Start: 01-02-2022 Tobacco use and exposure Smokeless tobacco non-user [facility] Start: 01-23-2020 End: 07-15-2023 History of Social function [facility] Start: 01-23-2020 End: 07-15-2023 Social connection and isolation panel [facility] How often do you get together with friends or relatives? Patient refused [facility] Are you now , , , , never or living with a partner? [facility] How often to you hav e a drink containing alcohol? Never [facility] Do you feel stress - tense, restless, nervous, or anxious, or unable to sleep at night because your mind is troubled all the time - these days [OSQ] Only a little [facility] (I/We) worried whe er (my/our) food would run out before (I/we) got money to buy more. Never true [facility] In the past 12 month s, was there a time when you were not able to pay the mortgage or rent on time? No [facility] Start: 06-06-2018 Gender identity Identifies as female gender (finding) [facility] Start: 07-28-2019 Sexual orientation Heterosexual (anna lama) [facility] Work Phone: Start: 06-18-2024 End: 06-18-2024 Sex Female (finding) [facility] Goals Date Patient Goal Desired Activity /State Functional Status Date Assessment Result Facility 08-13-2021 Are you deaf, or do you have serious difficulty hearing No 08/13/2021 2:10 PM EDT Tasha Lovell APRN.CNP No [facility] Work Phone: 08-13-2021 Are you blind, or do you have serious difficulty seeing, even when wearing glasses No 08/13/2021 2:10 PM EDT Tasha Lovell APRN.CNP No [facility] 08-13-2021 Do you have serious difficulty walking or climbing stairs No 08/13/2021 2:10 PM EDT Tasha Lovell APRN.SENIOR FIREWALL ENGINEER No [facility] 08-13-2021 Do you have difficul ty dressing or bathing No 08/13/2021 2:10 PM EDT Tasha Lovell APRN.SENIOR FIREWALL ENGINEER No [facility] 08-13-2021 Because of a physica l, mental, or emotional condition, do you have difficulty doing errands alone such as visiting a physician's office or shopping No 08/13/2021 2:10 PM EDT Tasha Lovell APRN.SENIOR FIREWALL ENGINEER No [facility] Mental Status Date Assessment Result Facility 03-06-2022 Cognitive function Voice/Name [facility] Work Phone: 12-28-2021 Cognitive function Level Of Cons ciousness Awake;Alert;Follows Commands [facility] Work Phone: 10-18-2021 Cognitive function Level Of Cons ciousness Awake;Alert;Appropriate;Fol lows Commands [facility] Work Phone: 08-23-2021 Cognitive function Level Of Cons ciousness Awake;Alert;Appropriate [facility] Work Phone: 08-23-2021 Cognitive function Voice/Name [facility] Work Phone: 08-13-2021 Because of a physica l, mental, or emotional condition, do you have serious difficulty concentrating, remembering, or making decisions No 08/13/2021 2:10 PM EDT Tasha Lovell APRN.[facility] No [facility] Clinical Notes 05-05-2020 to 08-27-2024 Thalia Monterroso [...] visit. Either the patient or their legal fraud representative has been informed of the risks [...] long standing Arrhythmia Arthritis Asthma Atrial fibrillation ([facility]) 2009 Atrophic vaginitis Benign neoplasm of [...] right breast of female, estrogen receptor positive ([facility]) 06/03/2017 Mitral valve disorders(424.0) and irregular heartbeat on occasion stress related Mixed stress and urge urinary incontinence Osteoarthrosis, unspecified whether generalized or localized, other specified sites 07/22 vit D 41 Other diseases of pharynx, not elsewhere classified(478.29) Other extrapyramidal disease and abnormal movement disorder PMH - PAST MEDICAL HISTORY OF benign mass on liver PMR (polymyalgia rheumatica) ([facility]) 2012 Pure hypercholesterolemia Snoring Squamous cell [...] Take 1 tablet by mouth once daily. 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 The [facility]NEUMATIC TESTER MECHANIC at the jail increased her prednisone from 20 to 40 [...] of starting prolia documented in this encounter [facility] 08-13-2024 Evaluation note Diagnosis Onset Date Resolution Fall acute August 13, 2024 2:06pm Fx distal ulna-closed acute August 13, 2024 2:06pm [facility] Work Phone: 1(454) 781-730305-25-2025 Radiology Diagnostic study note [facility] [address] [place] [address] CT Abd/Pelvis W/WO Contrast MR#: [id number] Acct: [id number] Name: CHRISTIAN LANDRUM Rep #: [id number] : 1935 F 89 From: Celi Man MD PCP: Dr. Reji Reyna MD Status: R EG CLI Study:CT Abd/Pelvis W/WO Contrast Date of Exa m: 08/06/24 Exam# [id number] Ordering Dr: Hiwot Abdullahi MD PROCEDURE: CT [...] the stomach suggestive of gastritis. Reading [facility] CC: Dr. Reji Reyna MD; Dr. Hiwot Abdullahi MD ~ Costume Shop Manager: Signed [facility]04-02-2025 Telephone encounter Note* Telephone Encounter - Daly Kaiser LPN - 06/16/2024 3:[address] Monterroso please advise outside labs thank you. Daly Kaiser LPN June 16, 2024 3:40 PM Media Information File Link Scan on 06/16/2024 3:39 PM by Daly Kaiser LPN: OUTSIDE LAB RESULTS 06/16/24 [facility]04-02-2025 Miscellaneous Notes* Telephone Encounter - Daly Kaiser LPN - 06/16/2024 3:[address] Monterroso please advise outside labs thank you. Daly Kaiser LPN June 16, 2024 3:40 PM Media Information File Link Scan on 06/16/2024 3:39 PM by Daly Kaiser LPN: OUTSIDE LAB RESULTS 06/16/24 [facility] History of Present illness Narrative* Thalia Monterroso [...] visit. Either the patient or their legal fraud representative has been informed of the risks [...] 2012 (elevated ESR and CRP at the [facility]). She started to develop symptoms of [...] benign mass on liver PMR (polymyalgia rheumatica) ([facility]) 2012 Pure hypercholesterolemia Snoring Squamous cell [...] Take 1 tablet by mouth once daily. nzssayv-ppxebqggg-vsngsny D3 500 mg-5 mcg (200 unit) per [...] so we stopped these. Continue tramadol by [facility] Avoid hepatotoxic meds (methotrexate/Arava) 2. Senile [...] option for [facility] to get [facility] jail. We will discuss more next time 3. [...] last infusion was 01/28/24 [facility] History of Present illness Narrative* Kamila Burns [...] PATIENT PRESENTS WITH AN IMPLANTABLE OR ATTACHED IMPLANT POLISHER: No ALLERGIES: Reviewed and unchanged CONTRAST ALLERGY: [...] PERIPHERAL IV DATA: power port accessed by [employer] RADIOLOGY DEPARTMENT: CT; Exam(s) Completed: Chest Abdomen Pelvis SIGNATURE: RT Rajinder(R) PATIENT NAME: Christian Landrum DATE: March 19, 2024 TIME: 2:31 PM [facility] History of Present illness Narrative* Page Ruiz [...] PATIENT PRESENTS WITH AN IMPLANTABLE OR ATTACHED IMPLANT POLISHER: No RADIOLOGY DEPARTMENT: General X-ray: Exam(s) Completed: Pelvis X-Ray: Pelvis with Hip Bilateral PERIPHERAL IV DATA: Not applicable SIGNED BY: RT Nithin(R) March 19, 2024 10:49 AM documented [facility] History of Present illness Narrative* Vania Horan RN - 03/12/2024 2:26 PM EST Patient's daughter states mom had some pain, aches, after her last Iron when it was pushed in Infusing this dose over 30 minutes with daughter in agreement. [facility] History of Present illness Narrative* Thalia Monterroso [...] visit. Either the patient or their legal fraud representative has been informed of the risks [...] 2012 (elevated ESR and CRP at the [facility]). She started to develop symptoms of [...] long standing Arrhythmia Arthritis Asthma Atrial fibrillation ([facility]) 2009 Atrophic vaginitis Benign neoplasm of [...] right breast of female, estrogen receptor positive ([facility]) 06/03/2017 Mitral valve disorders(424.0) and irregular heartbeat on occasion stress related Mixed stress and urge urinary incontinence Osteoarthrosis, unspecified whether generalized or localized, other specified sites 07/22 vit D 41 Other diseases of pharynx, not elsewhere classified(478.29) Other extrapyramidal disease and abnormal movement disorder PMH - PAST MEDICAL HISTORY OF benign mass on liver PMR (polymyalgia rheumatica) ([facility]) 2012 Pure hypercholesterolemia Snoring Squamous cell [...] Take 1 tablet by mouth once daily. tmzjdkf-oprpsbaec-dpkqxas D3 500 mg-5 mcg (200 unit) per [...] when pain is worse. Continue tramadol by [facility] She is getting a CT scan [...] (started 08/28/23, most recent infusion 01/28/24) Seeing [facility], getting tramadol 50 mg every 6 hours [...] to look for mets [facility] Telephone encounter Note * Telephone Encounter - Cassidy Arreola APRN.CNP - 03/03/2024 9:56 AM EST Noted. Cassidy Arreola APRN.INGE [facility] Work Phone: 1(405) 650-933112-18-2024 Miscellaneous Notes* Telephone Encounter - Cassidy Arreola APRN.CNP - 03/03/2024 9:56 AM EST Noted. Cassidy Arreola APRN.SENIOR FIREWALL ENGINEER * Telephone Encounter - Sadie Gann LPN - 03/02/2024 4:37 PM EST Spoke with pt. Daughter , she informed she is not sure if RA is the cause of pt. Pain, or if it is from the iron infusions. CRP and Sed rates are both elevated, they have appt. With riding coach onFriday . Will keep appts. 03/08 and [...] appointments that were requested. Patient is seeing riding coach on Friday. Transferred call to nurse. Meredith [...] get those visits rescheduled. documented in this encounterSelect [facility] Telephone encounter Note * Telephone Encounter - Sadie Gann LPN - 03/02/2024 4:37 PM EST Spoke with pt. Daughter , she informed she is not sure if RA is the cause of pt. Pain, or if it is from the iron infusions. CRP and Sed rates are both elevated, they have appt. With riding coach onFriday . Will keep appts. 03/08 and 03/12 unless she becomes more painful , will have CT scans on 03/19 , and depending on those results will make a decision to proceed further or stop. Sadie Gann LPN [facility]-17-2024 Telephone encounter Note* Telephone Encounter - Meredith Alonzo - 03/02/2024 4:29 PM EST Spoke with patient's daughter. They are not sure if the pain is from her RA of if her cancer is active again. Cancelled the 2 appointments that were requested. Patient is seeing riding coach on Friday. Transferred call to nurse. Meredith Alonzo [facility]12-17-2024 Telephone encounter Note* Telephone Encounter - Anneliese Garcia LPN - 03/02/2024 4:12 PM EST Tried to call daughter, no answer. Wanted to see if her pain was from her rheumatoid arthritis, which Cassidy noted in her OV on 02/24/24. Please assist in rescheduling. Anneliese Garcia LPN [facility]12-17-2024 Telephone encounter Note* Telephone Encounter - Alvina Mane - 03/02/2024 4:01 PM EST Daughter is calling to state patient is in a lot of pain, hard to even get out of her chair. They want to cancel 03/03 and 03/05 and would like to get those visits rescheduled. [facility]12-10-2024 History of Present illness Narrative* Cassidy Arreola [...] for both; strong for ER, moderate for OR). HER-2 3+. Had been using Estrace cream [...] Wire Localization: Wire absent Lymph Node Sampling: Hargill lymph node(s) Tumor size: Size of largest [...] therapy. S/p underwent hysteroscopy D&C at [facility] on 08/23/[address] Hebert. Path. Benign. Pt. resides at [facility]. Pt. here today with her daughter. Drop [...] k/uL 0.67 (L) 0.54 (L) 0.92 (L) [place]% % 12.3 8.8 12.1 Abs [place] <0.87 k/uL 1.02 (H) 0.46 1.15 (H) [...] ICD10: Z08, Z85.3 (primary diagnosis) pT1b pN0(sln) ER/OR positive, HER2 positive invasive ductal carcinoma the [...] discussed with the Patient or Patient's Authorized Blood Bank Order Control Clerk. Asapplicable, any other physician, advance practice provider, medical student, or other health professional student that will be observing or involved in the sensitive examination for educational or training purposes was discussed with the Patient or Authorized Blood Bank Order Control Clerk. The Patient or Authorized Blood Bank Order Control Clerk has agreed to proceed with the sensitive examination. (Sensitive examination includes inspection and/or palpation of the breasts, pelvis, prostate and anorectal regions) The patient indicates understanding of these issues and agrees with the plan. All documentation from previous visit of 08/19/23-Dr. Bonilla/myself was copied and pasted, documentation has been reviewed and edited as necessary for today's visit. Cassidy Arreola APRN.SENIOR FIREWALL ENGINEER documented in this encounterSelect Medical [facility]12-10-2024 History of Present illness Narrative* Vania Horan RN - 02/24/2024 8:07 AM EST . documented in this encounterSelect Medical [facility]11-08-2024 Telephone encounter Note * Telephone Encounter - Nicole Childs MA - 01/23/2024 4:33 PM EST Spoke with louisa Informed her of increased prednisone instructions and I will also fax this phone encounter. Louisa will speak with patients daughter for them to take note if they feel she has a flare up 1-2 weeks prior to infusion [facility]11-08-2024 Miscellaneous Notes* Telephone Encounter - Nicole Childs [...] Dr. Monterroso's instructions to the facility at [phone] Last ov 11/14/23 Rheumatoid arthritis involving multiple [...] Lymph 1.00 - 4.00 k/uL 0.54 (L) [place]% % 8.8 Abs [place] <0.87 k/uL 0.46 Eosin% % 0.4 Abs [...] 01/23/2024 12:31 PM EST Louisa, nurse at [facility] facility, feels patient may be having a flare. Has lots of pain in herhands. Asking for call back please. Louisa at [facility] [phone] Thanks! DHEERAJ Leyva documented in this encounterSelect Medical [facility]11-08-2024 Telephone encounter Note * Telephone Encounter - [...] she'dlike to try to increase her dose. [facility]-08-2024 Telephone encounter Note* Telephone Encounter - Nicole [...] Dr. Monterroso's instructions to the facility at [phone] Last ov 11/14/23 Rheumatoid arthritis involving multiple [...] Lymph 1.00 - 4.00 k/uL 0.54 (L) [place]% % 8.8 Abs [place] <0.87 k/uL 0.46 Eosin% % 0.4 Abs [...] mg/dL 0.6 Legend: (L) Low (H) High [facility]11-08-2024 Telephone encounter Note* Telephone Encounter - Selma Mcdaniel - 01/23/2024 12:31 PM EST Louisa, nurse at [facility], feels patient may be having a flare. Has lots of pain in herhands. Asking for call back please. Louisa at [facility] [phone] Thanks! Selma Mcdaniel, PSS [facility]09-26-2024 History of Present illness Narrative* Andria Joyner RN - 12/11/2023 11:27 AM EDT Denies any dental issues or concerns. No extractions or root canals in the last 6 months. Daughter present. Andria Joyner RN documented in this encounterSelect Medical Specialty [facility]09-19-2024 History of Present illness Narrative* Cesia Rangel RN - 12/04/2023 10:22 AM EDT Secure chat, as well as Page sent to Dr. Monterroso regarding Reclast. Unable to reach at this time. Daughter aware and ok with waiting until next tx. Cesia Rangel RN documented in this encounterSelect Medical Specialty [facility]09-11-2024 Telephone encounter Note * Telephone Encounter - Sadie Gann LPN - 11/26/2023 11:51 AM EDT Faxed, [facility] , [facility] receive. Sadie Gann LPN [facility]-11-2024 Miscellaneous Notes* Telephone Encounter - Sadie Gann LPN - 11/26/2023 11:51 AM EDT Faxed, [facility]tan at [facility] , they did receive. Sadie Gann LPN * Telephone Encounter - Page Robles - 11/26/2023 10:39 AM EDT Received call from [facility]. They stated a fax came thru this morning, however, they only received Cover Page. Please resubmit. [phone] * Telephone Encounter - Sadie Gann LPN - 11/26/2023 9:43 AM EDT spoke with pts. POA, given information concerning her iron studies. Also informed Dr. Bonilla notation was sent to [facility] attn: herminia horner so additional labs can [...] brings labs and note from Herminia Horner PNEUMATIC TESTER MECHANIC from jail. Daughter states -pt has had a drop in her Hgb to 9.9 from 11/03/23. (labs and note placed on your desk) -Pt has occult blood x 3 but pt does not want a colonoscopy. -Saw Dr Loc gates on 11/14/23, adding Reclast. -Pt having Iron studies drawn today. daughter asking if pt needs iron infusions prior to starting Reclast. Will need to let [facility] (fax [phone]) and daughter Eloisa. Anneliese Garcia LPN documented in this encounterSelect Medical [facility]ty [facility]09-11-2024 Telephone encounter Note * Telephone Encounter - Page Robles - 11/26/2023 10:39 AM EDT Received call from [facility]. They stated a fax came thru this morning, however, they only received Cover Page. Please resubmit. [phone] [facility] Work Phone: [phone]) 879-436309-11-2024 Telephone encounter Note* Telephone Encounter - Sadie Gann LPN - 11/26/2023 9:43 AM EDT spoke with pts. SLAUGHTER, given information concerning her iron studies. Also informed Dr. Bonilla notation was sent to [facility] attn: herminia horner so additional labs can be done. Daughter voiced understanding. Sadie Gann LPN [facility]-10-2024 Telephone encounter Note* Telephone Encounter - Sal [...] TSH and copper level. Sal Bonilla DO [facility]09-10-2024 Telephone encounter Note* Telephone Encounter - Anneliese Garcia LPN - 11/25/2023 1:52 PM EDT Pt here today for labs. Daughter brings labs and note from Herminia Horner PNEUMATIC TESTER MECHANIC from jail. Daughter states -pt has had a drop in her Hgb to 9.9 from 11/03/23. (labs and note placed on your desk) -Pt has occult blood x 3 but pt does not want a colonoscopy. -Saw Dr Loc gates on 11/14/23, adding Reclast. -Pt having Iron studies drawn today. daughter asking if pt needs iron infusions prior to starting Reclast. Will need to let [facility] (fax [phone]) and daughter Eloisa. Anneliese Garcia LPN [facility]-10-2024 Telephone encounter Note* Telephone Encounter - Sal Bonilla DO - 11/25/2023 12:00 PM EDT Thank you. Filed. Sal Bonilla DO [facility]09-10-2024 Miscellaneous Notes* Telephone Encounter - Sal Bonilla DO - 11/25/2023 12:00 PM EDT Thank you. Filed. Sal Bonilla DO * Telephone Encounter - Anneliese Garcia LPN - 11/25/2023 11:56 AM EDT Pended lab orders. Anneliese Garcia LPN documented in this encounterSelect Medical [facility]09-10-2024 Telephone encounter Note * Telephone Encounter - Anneliese Garcia LPN - 11/25/2023 11:56 AM EDT Pended lab orders. Anneliese Garcia LPN [facility]-30-2024 History of Present illness Narrative* Thalia Monterroso [...] visit. Either the patient or their legal fraud representative has been informed of the risks [...] Take 1 tablet by mouth once daily. vvzlklq-tgchhzwxe-pbrqgjr D3 500 mg-5 mcg (200 unit) per [...] with more than 50% of the total zidi-dy-vwth time of the visit in counseling / coordination of care. documented in this encounterSelect Medical [facility]ty [facility]07-25-2024 History of Present illness Narrative* Andria Joyner RN - 10/09/2023 11:11 AM EDT Pt requesting to have the infusion over 2 hours. States the two previous infusions were fine and noside effects during or when she got home. Andria Joyner RN documented in this encounterSelect Medical [facility]06-05-2024 Telephone encounter Note * Telephone Encounter - Page Robles - 08/20/2023 11:43 AM EDT Scheduled 1st treatment with [facility]. 3 cycles entered. Start email sent [facility] Work Phone: [phone] Miscellaneous Notes* Telephone Encounter - Page Robles - 08/20/2023 11:43 AM EDT Scheduled 1st treatment with [facility]. 3 cycles entered. Start email sent * Telephone Encounter - Page Robles - 08/19/2023 3:16 PM EDT Please call Loli at [facility] when ready to schedule. [phone] * Telephone Encounter - Page Robles - 08/19/2023 2:13 PM EDT DaughterEloisa called stating that [facility] will be calling to schedule Renflexis in [place]. Dr. Loc bass. Please review and advise. documented in this encounterSelect Medical Specialty [facility]06-04-2024 Telephone encounter Note * Telephone Encounter - Page Robles - 08/19/2023 3:16 PM EDT Please call Loli at [facility] when ready to schedule. [phone] [facility]06-04-2024 Telephone encounter Note* Telephone Encounter - Page Robles - 08/19/2023 2:13 PM EDT Daughter, Eloisa called stating that [facility] will be calling to schedule Renflexis in [place]. Dr. Monterroso ordering. Please review and advise. [facility]-04-20[facility] History of Present illness Narrative* Cassidy Arreola APRN.SENIOR FIREWALL ENGINEER - 08/19/2023 11:29 AM EDT Chief Complaint [...] for both; strong for ER, moderate for OR). HER-2 3+. Had been using Estrace cream [...] Wire Localization: Wire absent Lymph Node Sampling: Hargill lymph node(s) Tumor size: Size of largest [...] therapy. S/p underwent hysteroscopy D&C at [facility] on 08/23/[address] Hebert. Path. Benign. Pt. resides at [facility]. Pt. here today with her daughter. Last [...] - 4.00 k/uL 0.84 (L) 0.67 (L) [place]% % 13.6 12.3 Abs [place] <0.87 k/uL 1.41 (H) 1.02 (H) Eosin% [...] ICD10: C50.311, Z17.0 (primary diagnosis) pT1b pN0(sln) ER/OR positive, HER2 positive invasive ductal carcinoma the [...] visit. Cassidy Arreola APRN.INGE documented in this encounterSelect Medical Specialty [facility]06-04-2024 History of Present illness Narrative* aVnia Horan RN - 08/19/2023 7:21 AM EDT Patient is here for IVAD port flush/blood draw per [facility] protocol. IVAD is located in right upper [...] Patient tolerated procedure well. documented in this encounterSelect Medical Specialty [facility]05-10-2024 Telephone encounter Note * Telephone Encounter - Inessa Arnold RN - 07/25/2023 4:30 PM EDT Called Susana Bettencourt and discussed taper schedule from Dr. Monterroso of dropping by 1mg every month. Currently on 10mg Prednisone. Sonia Bettencourt expressed understanding of taper schedule. [facility]-10-2024 Miscellaneous Notes* Telephone Encounter - Inessa Arnold RN - 07/25/2023 4:30 PM EDT Called Susana Bettencourt and discussed taper schedule from Dr. Monterroso of dropping by 1mg every month. Currently on 10mg Prednisone. Sonia Bettencourt expressed understanding of taper schedule. * Telephone Encounter - Mary Beth Trevino - 07/25/2023 12:39 PM EDT Milagros from [facility] calling they need clarification on the taper of Prednisone. Please call [phone] and ask for Susana Bettencourt documented in this encounterSelect Medical Specialty [facility]05-10-2024 Telephone encounter Note * Telephone Encounter - Mary Beth Trevino - 07/25/2023 12:39 PM EDT Milagros from [facility] calling they need clarification on the taper of Prednisone. Please call [phone] and ask for Susana Bettencourt [facility]04-30-2024 History of Present illness Narrative* Vikash Sylvester APRN.SENIOR FIREWALL ENGINEER - 07/15/2023 2:30 PM EDT Female Pelvic [...] [facility] has been prescribing estrogen cream. GFR normal. Urinary Incontinence: no Voiding Dysfunction: no Urinary Frequency: yes, takes lasix Urinary Urgency: yes, sometimes Prolapse Symptoms: no Defecatory Dysfunction: no Fecal Incontinence: no Abnormal Bleeding: no Pain: no Abnormal Vaginal Discharge: no I have confirmed and edited as necessary, the PFSH obtained by others. Vikash Sylvester APRN.SENIOR FIREWALL ENGINEER Emergency Department Coordinator offered: Patient declines. OBJECTIVE: BP 122/84 Ht [...] VV next year since they live in [place]. Medical Decision Making: Problems: Moderate: 2+ stable chronic illnesses Data: Unique test result(s) reviewed: 1 Risk: Moderate: Drug management Medical Decision Making Level: 4 - Moderate Vikash Sylvester APRN.SENIOR FIREWALL ENGINEER documented in this encounterSelect Medical Specialty [facility]04-19-2024 History of Present illness Narrative* Margy Sarabia - 07/04/2023 3:42 PM EDT [facility] received prescription(s) for Humira from Dr. Monterroso's office. Benefits investigation was conducted, indicating that a prior authorization is required by patient's insurance plan with [employer] Encounter will be updated once prior authorization has been submitted by [facility]. Margy Sarabia CPhT, Inflammatory/Allergy [facility] [phone] * Margy Sarabia - 07/04/2023 3:42 PM EDT Images from the original note were not included. * Maxsulma Margy - 07/04/2023 3:42 PM EDT [facility] received prescription(s) for Humira from [...] this time. Patient will be referred to [employer]. Note will be update once pt is contacted. Margy Sarabia CPhT, Inflammatory/Allergy [facility] [phone] documented in this encounterSelect Medical Specialty [facility]04-19-2024 History of Present illness Narrative* Thalia Monterroso [...] 2012 (elevated ESR and CRP at the [facility]). She started to develop symptoms of [...] benign mass on liver PMR (polymyalgia rheumatica) ([facility]) 2012 Pure hypercholesterolemia Snoring Squamous cell [...] Take 1 tablet by mouth once daily. rgxgqyk-jdncokxpt-olvfgkz D3 500 mg-5 mcg (200 unit) per [...] months Thalia Monterroso MD documented in this encounterSelect Medical Specialty [facility]04-16-2024 Miscellaneous Notes* Telephone Encounter - Bayron Spears RN - 07/01/2023 4:00 PM EDT Singed order for compression stockings place in us postal mail addressed to: [facility] medical records [address] [place] [address] documented in this encounterSelect Medical Specialty [facility]04-15-2024 History of Present illness Narrative* Stella Preciado PA-C - 06/30/2023 4:00 PM EDTAssociated Order(s): Large Joint Arthro/Inj: R knee joint Post-Procedure Diagnose(s): Primary osteoarthritis of both knees Large Joint Arthro/Inj: R knee joint Informed Consent Consent Obtained: Verbal Frederick Protocol A moment to CARE was completed. [...] right knee cortisone injection. documented in this encounterSelect Medical Specialty [facility]04-15-2024 Instructions* Patient Instructions* Stella Preciado PA-C - 06/30/2023 3:42 PM EDT Right knee injection today. No restrictions, follow up in 91 days if needed. documented in this encounterSelect Medical Specialty [facility]04-03-2024 History of Present illness Narrative* Stella Preciado PA-C - 06/18/2023 9:16 AM EDTAssociated Order(s): Large Joint Arthro/Inj: L knee joint Post-Procedure Diagnose(s): Primary osteoarthritis of both knees; Chronic pain of left knee Stella Preciado PA-C Department of Orthopaedics Orthopaedics [address] [place] [id number] Dept: [phone] Dept June 18, 2023 CHIEF COMPLAINT: Established [...] knee joint Informed Consent Consent Obtained: Verbal Frederick Protocol A moment to CARE was completed. [...] Take 1 tablet by mouth once daily. isouwxw-xexksbuhf-reaolqo D3 500 mg-5 mcg (200 unit) per [...] [Lisinopril] This note was partially generated using [employer] voice recognition system, and there may be [...] into the left knee. documented in this encounterSelect Medical Specialty [facility]04-03-2024 Instructions* Patient Instructions* Stella Preciado PA-C - 06/18/2023 8:54 AM EDT Left knee injection today, follow up in 1-2 weeks for right knee injection. documented in this encounterSelect Medical Specialty [facility]04-03-2024 History of Present illness Narrative* Page Ruiz [...] PATIENT PRESENTS WITH AN IMPLANTABLE OR ATTACHED IMPLANT POLISHER: No RADIOLOGY DEPARTMENT: General X-ray: Exam(s) Completed: Lower Extremity X- Ray(s): Knee, AP / Lat / Tunne / Merchant Bilateral and Wt. Bearing PERIPHERAL IV DATA: Not applicable SIGNED BY: RT Nithin(R) June 18, 2023 11:10 AM documented in this encounterSelect Medical Specialty [facility]04-01-2024 History of Present illness Narrative* Cecilio Ibarra DO - 06/16/2023 1:57 PM EDT Images from the original note were not included. [facility] Luis Miguel Kolb Department of Cardiovascular Medicine SECTION OF CLINICAL CARDIOLOGY OUTPATIENT VISIT DATE June 16, 2023 OUTPATIENT VISIT TYPE ESTABLISHED Patient Name: Christian Landrum : 1935 PRIMARY CARE PHYSICIAN: Galina Iraheta MD [facility] 09/05/22 CHIEF COMPLAINT: Patient presents with: [...] risk and aware of this off anticoagulation. [id number] score 4 or approximately 7% annual stroke [...] SINUS RHYTHM Confirmed by OBDULIA BERMEO DO ([id number]) on 10/08/2022 3:19:16 PM LABS: Sodium (mmol/L) [...] [Cephalexin], Naprosyn [Naproxen], Desmond Inhibitors, Adhesives [Other], [id number] [Diclofenac-Misoprostol], Blephamide [Sulfacetamide- Prednisolone], Ditropan [Oxybutynin], Flagyl[Metronidazole [...] Take 1 tablet by mouth once daily. uuroriw-tcgyqbadk-sqxryoq D3 500 mg-5 mcg (200 unit) per [...] medications for this visit. documented in this encounterSelect Medical Specialty [facility]03-22-2024 History of Present illness Narrative* Hu Moreland [...] PATIENT PRESENTS WITH AN IMPLANTABLE OR ATTACHED IMPLANT POLISHER: No RADIOLOGY DEPARTMENT: Bone Density PERIPHERAL IV DATA: Not applicable SIGNED BY: RT Dwayne(R) June 06, 2023 2:13 PM documented in this encounterSelect Medical Specialty [facility]02-14-2024 Miscellaneous Notes* Telephone Encounter - Nicole Childs [...] Maximus said we can fax response to [phone] * Telephone Encounter - Nrey Olsen - 04/28/2023 1:04 PM EST Maximus from [facility] called to advise that pt's pain has gotten worse while on the prednisone taper. Advised that dosage is now at 12.5 and pt is in a lot of pain. Callback: [phone] DHEERAJ Ponce documented in this encounterSelect Medical Specialty [facility]02-09-2024 Miscellaneous Notes* Telephone Encounter - Nicole Childs [...] 04/24/2023 12:39 PM EST Maximus BRUNO from [facility] called. Patient was complaining of all [...] response and or call documented in this encounterSelect Medical Specialty [facility]11-28-2023 History of Present illness Narrative* Cassidy Arreola APRN.SENIOR FIREWALL ENGINEER - 02/11/2023 10:05 AM EST Chief Complaint [...] for both; strong for ER, moderate for OR). HER-2 3+. Had been using Estrace cream [...] Wire Localization: Wire absent Lymph Node Sampling: Hargill lymph node(s) Tumor size: Size of largest [...] therapy. S/p underwent hysteroscopy D&C at [facility] on 08/23/[address] eHbert. Path. Benign. Pt. resides at [facility]. Pt. here today with her daughter. Last [...] 1.00 - 4.00 k/uL 1.57 1.06 1.54 [place]% % 11.2 11.2 9.7 Abs [place] <0.87 k/uL 0.68 0.59 0.68 Eosin% % [...] V10.3, ICD10: Z85.3 (primary diagnosis) pT1b pN0(sln) ER/OR positive, HER2 positive invasive ductal carcinoma the [...] visit. Cassidy Arreola APRN.CNP documented in this encounterSelect Medical Specialty [facility]10-05-2023 Miscellaneous Notes* Telephone Encounter - Sheryl Mercado RN - 12/19/2022 2:42 PM EDT Faxed patient's last office visit note to facility, [facility], per . documented in this encounterSelect Medical Specialty [facility]10-03-2023 History of Present illness Narrative* Vania Horan RN - 12/17/2022 7:27 AM EDT Patient is here for IVAD port flush per [facility] protocol. IVAD is located in right upper chest. Site cleansed with Chloraprep IVAD accessed with a #20 gauge 3/4 non-coring Gripper needle Blood Return: Good Flushed with: 20 ml Normal Saline and 5 ml Heparin Lock Flush Non-coring needle removed. Paper tape applied to puncture site. Port site negative for redness, edema or tenderness. Patient tolerated procedure well. documented in this encounterSelect Medical Specialty [facility]09-29-2023 Instructions* Patient Instructions* Juliet Gaffney APRN.CNP - 12/13/2022 2:50 PM EDT PLAN AND RECOMMENDATIONS: No change in medications Follow up Dr Ibarra in 6 months. CONTACT INFORMATION: Juliet Gaffney APRN.CNP Cardiology Nurse Practitioner Section of Regional Cardiology [place] Dept of Cardiovascular Medicine [facility] [place] [address] [place] [address] Office Office documented in this encounterSelect Medical Specialty Hospital [facility]09-29-2023 History of Present illness Narrative* Juliet GaffneySILVIO.SENIOR FIREWALL ENGINEER - 12/13/2022 2:45 PM EDT Images from the original note were not included. [facility] [place] Luis Miguel Kolb Department of Cardiovascular Medicine SECTION OF CLINICAL CARDIOLOGY OUTPATIENT VISIT DATE December 13, 2022 OUTPATIENT VISIT TYPE ESTABLISHED PRIMARY CARE PHYSICIAN: Galina Iraheta [address] [place] [address] REFERRING PHYSICIAN: Jerrica Beltran [address] [facility] [address] CHIEF COMPLAINT: Follow Up (Dolores denies cardiac concerns/Daughter, Eloisa, concerned about Lasix [...] if standing for long time, like [facility] but resolves quickly Has sleep apnea with new mask and now sleeps better. She overall feels better than she has in a long time. Does water therapy at her assisted living facility. [facility] [place] She denies shortness of breath, chest pain, [...] Take 1 tablet by mouth once daily. qynuffs-bwhtlcgdi-ziwujug D3 500 mg-5 mcg (200 unit) per [...] SINUS RHYTHM Confirmed by OBDULIA BERMEO DO ([id number]) on 10/08/2022 3:19:16 PM There were no [...] in 6 months. CONTACT INFORMATION: Juliet Gaffney APRN.[facility] Cardiology Nurse Practitioner Section of [facility] Cardiology [facility] Dept of Cardiovascular Medicine [facility] [place] [address] [facility] [address] [place] [address] Office Office documented in this encounterSelect Medical Specialty Hospital [facility]09-12-2023 Miscellaneous Notes* Telephone Encounter - Sheryl Mercado [...] contact is Eloisa Moser. documented in this encounterSelect Medical Specialty Hospital [facility]09-11-2023 Instructions* Patient Instructions* Stella Preciado PA-C - [...] feels comfortable doing so. documented in this encounterSelect Medical Specialty Hospital - [facility]09-11-2023 History of Present illness Narrative* Page Ruiz [...] 25, 2022 2:30 PM documented in this encounterSelect Medical Specialty Hospital - [facility]09-11-2023 History of Present illness Narrative* Stella Preciado PA-C - 11/25/2022 2:05 PM EDTAssociated Order(s): Large Joint Arthro/Inj: bilateral knee joints Post-Procedure Diagnose(s): Primary osteoarthritis of both knees Large Joint Arthro/Inj: bilateral knee joints Informed Consent Consent Obtained: Verbal Frederick Protocol A moment to CARE was completed. [...] Amount of Time: (Ongoing) documented in this encounterSelect Medical Specialty Hospital - [facility]ull08-31-2023 Miscellaneous Notes* Telephone Encounter - Juliet Coombs - 11/14/2022 5:44 PM EDT Left VM on patient's home and mobile lines cancelling the patient's 12/11/22 cardiology appointment.Instructed the patient to call the office to reschedule. My Chart message sent. documented in this encounterSelect Medical Specialty Hospital - [facility]07-11-2023 History of Present illness Narrative* Andria Joyner RN - 09/24/2022 2:35 PM EDT Patient is here for IVAD port flush per [facility] [place] protocol. IVAD is located in right upper [...] well. Andria Joyner RN documented in this encounterSelect Medical Specialty Hospital - [facility]07-07-2023 Miscellaneous Notes* Telephone Encounter - Ana Cristina Melo RN - 09/20/2022 8:44 AM EDT Reviewed labs with Dr. Ibarra. Recommended pt to hold Eliquis. Would like pt to see Dr. Shields to discuss Watchmen Device. Reviewed recommendations to KASANDRA fulton Nurse Milagros at [facility]. Eloisa stated she will review Watchman recommendations to pt. Will contact us if she decided to pursue. * Telephone Encounter - Ana Cristina Melo RN - 09/20/2022 8:17 AM EDT Jie from [facility] ([phone]) in reg to Ms Tristin Landrum. CBC [...] risk and aware of this off anticoagulation. DTH2OJ1-VICk score 4 or approximately 7% annual stroke risk and has-bled score is 2 or 4% bleeding risk - Currently on metoprolol - patient and daughter wish to trial DOAC now Iron deficiency anemia Doing well with iron infusions with stable Hgb documented in this encounterSelect Medical Specialty Hospital - [facility]06-22-2023 History of Present illness Narrative* Cecilio Ibarra, DO - 09/05/2022 9:12 AM EDT Images from the original note were not included. [facility] [place] Luis Miguel Kolb Department of Cardiovascular Medicine SECTION OF CLINICAL CARDIOLOGY OUTPATIENT VISIT DATE April 09, 2022 OUTPATIENT VISIT TYPE ESTABLISHED Patient Name: Christian Landrum : 1935 PRIMARY CARE PHYSICIAN: Galina Iraheta MD [facility] 09/05/21 CHIEF COMPLAINT: No chief complaint [...] risk and aware of this off anticoagulation. [id number] score 4 or approximately 7% annual stroke [...] [Cephalexin], Naprosyn [Naproxen], Desmond Inhibitors, Adhesives [Other], Jcollnysx39 [Diclofenac-Misoprostol], Blephamide [Sulfacetamide- Prednisolone], Ditropan [Oxybutynin], Flagyl[Metronidazole [...] Take 1 tablet by mouth once daily. yqqqywq-gifscbcgg-iwwdhfq D3 500 mg-5 mcg (200 unit) per [...] medications for this visit. documented in this encounterSelect Medical Specialty Hospital - [facility]ull06-13-2023 History of Present illness Narrative* Cassidy Arreola APRN.SENIOR FIREWALL ENGINEER - 08/27/2022 11:54 AM EDT Chief Complaint [...] for both; strong for ER, moderate for OR). HER-2 3+. Had been using Estrace cream [...] Wire Localization: Wire absent Lymph Node Sampling: [place] lymph node(s) Tumor size: Size of largest [...] therapy. S/p underwent hysteroscopy D&C at [facility] on 08/23/[address] Hebert. Path. Benign. Pt. now resides at [facility]. Pt. here today with her daughter. Pt. [...] Lymph 1.00 - 4.00 k/uL 1.35 1.57 [place]% % 11.0 11.2 Abs [place] <0.87 k/uL 0.54 0.68 [place]% % 1.6 [...] V10.3, ICD10: Z85.3 (primary diagnosis) pT1b pN0(sln) ER/OR positive, HER2 positive invasive ductal carcinoma the [...] visit. Cassidy Arreola APRN.INGE documented in this encounterSelect Medical Specialty Hospital - [facility]03-28-2023 Miscellaneous Notes* Telephone Encounter - Sadie Lin [...] you. Cassidy Arreola APRN.CNP documented in this encounterSelect Medical Specialty Hospital - [facility]ull03-22-2023 History of Present illness Narrative* Page Ruiz, RT(R) - 06/05/2022 11:40 AM EDT Radiology [...] 05, 2022 12:37 PM documented in this encounterSelect Medical Specialty Hospital - [facility]03-22-2023 History of Present illness Narrative* Cassidy Arreola APRN.SENIOR FIREWALL ENGINEER - 06/05/2022 10:51 AM EDT Chief Complaint [...] for both; strong for ER, moderate for OR). HER-2 3+. Had been using Estrace cream [...] Wire Localization: Wire absent Lymph Node Sampling: [place] lymph node(s) Tumor size: Size of largest [...] therapy. S/p underwent hysteroscopy D&C at [facility] on 08/23/[address] Hebert. Path. Benign. Pt. now resides at [facility]. Pt. here today with her daughter. Pt. [...] Skin:denies rashes/lesions Heme:denies bleeding since visit with REHEAT FURNACE OPERATOR The ROS is otherwise negative. Past [...] V10.3, ICD10: Z85.3 (primary diagnosis) pT1b pN0(sln) ER/OR positive, HER2 positive invasive ductal carcinoma the [...] visit. Cassidy Arreola APRN.INGE documented in this encounterSelect Medical Specialty Hospital - [facility]03-16-2023 Miscellaneous Notes* Telephone Encounter - Meredith Alonzo - 05/30/2022 3:07 PM EDT Spoke with Jie at [facility] and she stated that appointments need made with the patient's family as they are the ones that transport the patient. Spoke with patient's daughter, advising below, and scheduled May follow up as directed. Meredith Alonzo * Telephone Encounter - Lisa Morales LPN - 05/30/2022 1:42 PM EDT Left detailed message for Herminia with information below. I attempted to contact [facility], , they were unable to hear on their line. Unable to speak to anyone. I faxed this information to [phone]. Will attempt to contact again later. PSS- please contact [facility] to schedule as directed below. [...] - 05/30/2022 12:34 PM EDT Herminia from [facility] called stating patient is having right side pain, rib area. She is asking if imaging orders could be sent or if patient needs to be seen . She states concern due to hx breast cancer. Please call Herminia at [phone] documented in this encounterSelect Medical Specialty Hospital - [facility]01-25-2023 Miscellaneous Notes* Telephone Encounter - Starla Son [...] today. Starla Son RN documented in this encounterSelect Medical Specialty Hospital - [facility]01-24-2023 Instructions* Patient Instructions* Taty Perez APRN.INGE - [...] day - please fax BP readings to [phone] I would like to know if your [...] sodium diet is recommended documented in this encounterSelect Medical Specialty Hospital - [facility]01-24-2023 History of Present illness Narrative* Taty Perez APRN.INGE - 04/09/2022 2:44 PM EST Images from the original note were not included. [facility] [place] Luis Miguel Kolb Department of Cardiovascular Medicine [...] which included preparing to see the patient, dpbi-je-xpmv patient care, completing clinical documentation, performing a medically appropriate examination, counseling and educating the patient/family/caregiver, ordering medications, tests, or p rocedures, and communicating results to the patient/family/caregiver. Thank you very much for allowing me to assist in the care of Christian Landrum. Please do not hesitate to contact me if you have questions or concerns. Taty Perez APRN.[facility] Cardiology Nurse Practitioner Section of Regional Cardiology [facility] Dept of Cardiovascular Medicine [facility] [place] [address] [place] [address] Office Office April 09, 2022 2:44 PM This note was partially generated using Neurologix voice recognition system and may contain errors [...] [Cephalexin], Naprosyn [Naproxen], Desmond Inhibitors, Adhesives [Other], [id number] [Diclofenac-Misoprostol], Blephamide [Sulfacetamide- Prednisolone], Ditropan [Oxybutynin], Flagyl[Metronidazole [...] and ROS obtained by others. Taty Perez, PACKAG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 CURRENT MEDICATIONS: Current Outpatient Medications Medication Sig [...] Take 1 tablet by mouth once daily. lelkdkk-yqvqttibt-vtqbpiz D3 500 mg-5 mcg (200 unit) per tablet Take 1 tablet by mouth once daily. omeprazole (PRILOSEC) 40 mg capsule Take 1 capsule by mouth once daily. gabapentin (NEURONTIN) 600 mg tablet Take 0.5 tablets by mouth once daily. (Patient taking differently: Take 300 mg by mouth daily at bedtime.) No current facility-administered medications for this visit. documented in this encounterSelect Medical Specialty Hospital [facility]01-23-2023 History of Present illness Narrative* Nata Morrison RN - 04/08/2022 11:07 AM EST documented in this encounterSelect Medical Specialty Hospital - [facility]01-09-2023 Miscellaneous Notes* Telephone Encounter - DHEERAJ Wood [...] transfusion on 03/05. A CBC done at [facility] on 03/07 Showed that the hemoglobin [...] infusion. Sal Bonilla DO documented in this encounterSelect Medical Specialty Hospital - [facility]01-06-2023 Miscellaneous Notes* Telephone Encounter - Dayami Pinto [...] time. Lisa Morales LPN documented in this encounterSelect Medical Specialty Hospital - [facility]ull12-27-2022 Miscellaneous Notes* Telephone Encounter - Dayami Pinto [...] in for a lab port draw and nut picker hemoccult cards at the desk (labeled and at nurses station for nut picker when she comes in).PSS please reach our to Eloisa and schedule her lab port. Eloisa states she is no longer on coumadin stopped about 2 months ago for issues with bleeding andgetting positive occult tests on and off. She states pt has had a history of bowel resection and would not want any more surgery. Anneliees Garcia LPN * Telephone Encounter - Anneliese Garcia LPN - 03/12/2022 9:57 AM EST Left message on [employer] phone to call me back to review [...] [facility]. Her iron levels were low when measured [...] to schedule. Meredith Alonzo documented in this encounterSelect Medical Specialty Hospital - Tr[facility]ull12-21-2022 History of Present illness Narrative* Cassidy Arreola [...] for both; strong for ER, moderate for OR). HER-2 3+. Had been using Estrace cream [...] Wire Localization: Wire absent Lymph Node Sampling: Hargill lymph node(s) Tumor size: Size of largest [...] therapy. S/p underwent hysteroscopy D&C at [facility] on 08/23/[address] Hebert. Path. Benign. Pt. now resides at [facility]. Labs have been monitored there. She received [...] Skin:denies rashes/lesions Heme:denies bleeding since visit with REHEAT FURNACE OPERATOR The ROS is otherwise negative. Past [...] 174.3, V86.0, ICD10: C50.311, Z17.0 pT1b pN0(sln) ER/OR positive, HER2 positive invasive ductal carcinoma the [...] visit. Cassidy Arreola APRN.INGE documented in this encounterSelect Medical Specialty Hospital - [facility]11-22-2022 History of Present illness Narrative* Vania Horan RN - 02/05/2022 7:32 AM EST Patient is here for IVAD port flush per [facility] [place] protocol. IVAD is located in right upper chest. Site cleansed with Chloraprep IVAD accessed with a #20 gauge 3/4 non-coring Gripper needle Blood Return: Good Flushed with: 20 ml Normal Saline and 5 ml Heparin Lock Flush Non-coring needle removed. Paper tape applied to puncture site. Port site negative for redness, edema or tenderness. Patient tolerated procedure well. documented in this encounterSelect Medical Specialty Hospital - Tr[facility]ull11-07-2022 History of Present illness Narrative* Stella Preciado PA-C - 01/21/2022 2:58 PM ESTAssociated Order(s): Large Joint Arthro/Inj: R knee joint Post-Procedure Diagnose(s): Primary osteoarthritis of both knees; Chronic pain of right knee Stella Preciado PA-C Department of Orthopaedics Orthopaedics [address] [facility] [address] Dept: [phone] Dept January 21, 2022 CHIEF COMPLAINT: Established [...] knee joint Informed Consent Consent Obtained: Verbal Frederick Protocol A moment to CARE was completed. [...] knee osteoarthritis with interval progression as described. Costume Shop Manager: GRANT Transcribe Date/Time: Jul 09 2021 7:03P [...] Take 1 tablet by mouth once daily. texfpbj-wyrowufkk-cmbypzg D3 500 mg-5 mcg (200 unit) per [...] anxiety) This note was partially generated using Neurologix voice recognition system, and there may be some incorrect words, spellings, and punctuation that were not noted in checking the note before saving. Stella Preciado PA-C * Corrine Osei Ma - [...] Eloisa with patient today. documented in this encounterSelect Medical Specialty Hospital - [facility]10-19-2022 NoteHNO ID: [id number] Author: Basilia Hernández MD Service: ? Author [...] stool Pain: no Abnormal Vaginal Discharge: no REHEAT FURNACE OPERATOR HISTORY: Last Pap: Date:04/18/20 NIL; Last [...] Making Level: 4 - Moderate Basilia Hernández, [facility]10-19-2022 Instructions* Patient Instructions* Basilia Hernández MD - 01/02/2022 2:08 PM EDT Follow up with Vikash Sylvester NP in 6 months or sooner as needed documented in this encounterSelect Medical Specialty Hospital - [facility]10-19-2022 History of Present illness Narrative* Basilia Hernández [...] stool Pain: no Abnormal Vaginal Discharge: no REHEAT FURNACE OPERATOR HISTORY: Last Pap: Date:04/18/20 NIL; Last [...] Moderate Basilia Hernández MD documented in this encounterSelect Medical Specialty Hospital - [facility]10-11-2022 Miscellaneous Notes* Telephone Encounter - Jayde Link RN - 12/25/2021 10:47 AM EDT Galina Castro PNEUMATIC TESTER MECHANIC called regarding patient's Coumadin, has been having anemia and bloody stool. Asking if Coumadin can be held/stopped temporarily. Coumadin has been ordered by PCP, not cardiology office. Spoke with PNEUMATIC TESTER MECHANIC, explained Dr. Ibarra was not managing patient's Coumadin. PNEUMATIC TESTER MECHANIC stated patient is no longer seeing Dr. Iraheta and has new PCP; requesting orders from Dr. Ibarra. Advised PNEUMATIC TESTER MECHANIC to follow up with new PCP/physician managing Coumadin. Per Dr. Ibarra's notes, anemia has been chronic issue. documented in this encounterSelect Medical Specialty Hospital - [facility]08-30-2022 History of Present illness Narrative* Jerrica Bhat RN - 11/13/2021 9:57 AM EDT Patient is here for IVAD port flush per [facility] [place] protocol. IVAD is located in right upper chest. Site cleansed with Chloraprep IVAD accessed with a #20 gauge 3/4 non-coring Gripper needle Blood Return: Good Flushed with: 20 ml Normal Saline Non-coring needle removed. Paper tape applied to puncture site. Port site negative for redness, edema or tenderness. Patient tolerated procedure well. documented in this encounterSelect Medical Specialty Hospital - [facility]08-22-2022 Miscellaneous Notes* Telephone Encounter - Galina Iraheta MD - 11/05/2021 5:17 PM EDT noted * Telephone Encounter - Maria A Camacho (Rehabilitator) - 11/05/2021 9:35 AM EDT PATIENT CALL [...] re-referred, if deemed appropriate. Maria A Camacho; trailers and motor homes salesperson (Rehabilitator) Pharmacy Anticoagulation Clinic documented in this encounterSelect Medical Specialty Hospital - [facility]ull08-19-2022 Miscellaneous Notes* Telephone Encounter - An Ta APRN.CNP - 11/02/2021 2:49 PM EDT Noted. An Ta APRN.CNP * Telephone Encounter - Nata Lemon LPN - 11/02/2021 1:12 PM EDT Patient daughter Gia returned call and said her mother is at [facility] and Dr Aleoj Salcido is taking over as provider. She [...] EDT Received call from Maximus MERCADO with [facility]. Patient was admitted to facility today. Maximus asking for clarification on when patient should resume Coumadin and dosage as well as when next INR needs to be drawn. Maximus requests orders be faxed to [phone] or called to [phone]. Maximus requested updated medication list be faxed. [...] and left VM to call PAC at [phone]. Is she is Assisted Living facility? documented in this encounterSelect Medical Specialty Hospital - [facility]08-04-2022 Miscellaneous Notes* Telephone Encounter - Yoly Clayton Ma - 10/18/2021 3:47 PM EDT Patient currently being seen in [facility]. * Telephone Encounter - An Ta APRN.SENIOR FIREWALL ENGINEER - 10/18/2021 3:39 PM EDT Please get update from daughter on how patient is feeling, and if they heard back from [facility]. Thank you An Ta APRN.CNP * Telephone Encounter - Nata Lemon LPN - 10/18/2021 9:00 AM EDT Patient daughter Eloisa calling mother woke up with fever 100.5 this morning. She was having body aches yesterday. She is scheduled for blood transfusion today at [facility] her hemoglobin is 6.5 and daughter has called transfusion center at [facility] and left message. Eloisa did home COVID test and mother was positive. documented in this encounterSelect Medical Specialty Hospital [facility]08-03-2022 Miscellaneous Notes* Telephone Encounter - Jerrica Rothman RP - 10/17/2021 3:58 PM EDT Dolores J Lucita was called for anticoagulation follow-up. PT INR (no units) Date Value 10/16/2021 2.1 (biotel) 10/13/2021 4.8 06/06/2021 3.1 (biotel) INR (no units) Date Value 10/16/2021 1.9 INR Home CoaguChek (no units) Date Value 10/13/2021 3.8 10/02/2021 2.9 09/19/2021 2.2 Called pt and LM. Spoke to Eloisa her daughter. Due to low Hgb, she is getting a transfusion at [facility]. She said the patient will be [...] now? Blood tranfusion orders faxed to [facility] Please review and advise. Nury Guerin LPN * Telephone Encounter - Jerrica Rothman RPh - 10/17/2021 9:12 AM EDT INR yesterday (10/16) was 2.1 via Biotel. * Telephone Encounter - Galina Iraheta MD - 10/16/2021 6:32 PM EDT We will have to transfuse 2 units of RBcs to patient Please get the forms for [facility] and inform patient of the same * Telephone Encounter - Tesha Arias [facility] - 10/16/2021 6:01 PM EDT Called and stp- per Dr. Iraheta pt to hold off on warfarin. Pt's Hgb was 6.5 today, will reach out to Dr. Iraheta for clarification on resuming anticoag Tesha Arias PharmD documented in this encounterSelect Medical Specialty Hospital [facility]08-03-2022 Miscellaneous Notes* Telephone Encounter - Ramila Castro LPN - 10/17/2021 2:00 PM EDT Soraya with [facility] Marge called and states pt is coming in for a cross and type. Identified pt withname and date of . Requested a copy of last H & H, faxed CBC to [phone]. Ramila Castro LPN documented in this encounterSelect Medical Specialty Hospital [facility]08-01-2022 Miscellaneous Notes* Telephone Encounter - Nury Guerin [...] this medication. Advice. 4. Moving pt to [facility] 10-22-21. Please advise daughter on cell phone or send a [place] message Gia Ford ([facility])on teams. documented in this encounterSelect Medical Specialty Hospital [facility]08-01-2022 Miscellaneous Notes* Telephone Encounter - Vito Pierre [facility] - 10/15/2021 11:47 AM EDT [facility]tico[facility] Clinic Anticoagulation Episode Summary Anticoagulation Care Providers Provider Role Specialty Phone number Galina Iraheta MD [facility] Internal Medicine [phone] Christian Landrum is a 86 year old [...] Pharmacy Anticoagulation Clinic Pharmacy Anticoagulation Clinic Pager: [phone]. documented in this encounterSelect Medical Specialty Hospital - [facility]ull07-28-2022 History of Present illness Narrative* Jeancarlos Hooker [...] removed with a cold snare. D&C at [place] a month or two ago for uterine [...] MD October 11, 2021 documented in this encounterSelect Medical Specialty Hospital - Trumbull07-13-2022 NoteHNO ID: [id number] Author: Basilia Hernández MD Service: ? Author [...] UTIs, used to see Dr. Burris at [facility]. Prior colovesical fistula, s/p sigmoid colectomy. [...] >=60 mL/min/1.73m? 79 Medical and Symptom History: REHEAT FURNACE OPERATOR HISTORY: Last Pap: Date:04/18/20 NIL; Last [...] DIAGNOSTIC 01/09/2021 - HYSTEROSCOPY (more content not included)...[facility] 09-26-2021 Instructions* Patient Instructions* Basilia Hernández MD - 09/26/2021 2:57 PM EDT Follow up with Dr. Hernández in 3 months Schedule appointment with infectious disease Start Hiprex Continue vaginal estrogen Consider trying D-mannose Your doctor has placed a standing order for urine culture. When you have symptoms of a urine infection, go to a [facility] lab facility and submit a urine specimen [...] ask any laboratory employee. documented in this encounterSelect Medical Specialty Hospital - [facility]ull07-13-2022 History of Present illness Narrative* Basilia Hernández [...] UTIs, used to see Dr. Burris at [facility]. Prior colovesical fistula, s/p sigmoid colectomy. [...] >=60 mL/min/1.73m 79 Medical and Symptom History: REHEAT FURNACE OPERATOR HISTORY: Last Pap: Date:04/18/20 NIL; Last [...] tablet by mouth twice daily with meals. qperyyo-kwloiytuc-csdglpi D3 500 mg-5 mcg (200 unit) per [...] ROS obtained by others. Basilia Hernández MD Emergency Department Coordinator offered: Patient accepts, visit chaperoned by [...] Post Wall - Normal support Cervix / [place] - Normal support POP-Q: Prolapse Noted: No [...] mail. Basilia Hernández MD documented in this encounterSelect Medical Specialty Hospital [facility]07-06-2022 Miscellaneous Notes* Telephone Encounter - Jerrica Rothman RPh - 09/19/2021 11:03 AM EDT [employer] message sent for therapeutic INR. documented in this encounterSelect Medical Specialty Hospital [facility]07-05-2022 History of Present illness Narrative* Cassidy Arreola APRN.SENIOR FIREWALL ENGINEER - 09/18/2021 9:29 AM EDT Chief Complaint [...] for both; strong for ER, moderate for OR). HER-2 3+. Had been using Estrace cream [...] Wire Localization: Wire absent Lymph Node Sampling: [place] lymph node(s) Tumor size: Size of largest [...] Dr. Das. She was then admitted to [facility] for weakness end of June. Admitted to [place] for UTI end of July. During that time her . S/p underwent hysteroscopy D&C at [facility] on 08/23/[address] Hebert. Path. Benign. 09/11/21-vaginal bleeding was seen by Dr. Hebert. Pt. participating in PT. Appetite:I've been eating. My sister has been here from [place]. Energy level:I sleep a lot. Denies fevers. [...] Skin:denies rashes/lesions Heme:denies bleeding since visit with REHEAT FURNACE OPERATOR The ROS is otherwise negative. Past [...] 174.3, V86.0, ICD10: C50.311, Z17.0 pT1b pN0(sln) ER/OR positive, HER2 positive invasive ductal carcinoma the [...] visit. Cassidy Arreola APRN.INGE documented in this encounterSelect Medical Specialty Hospital - [facility]07-05-2022 Nurse Note* Sadie Lin LPN - 09/18/2021 9:17 AM EDT Est. Pt. 6 month f/u Sadie Lin LPN documented in this encounterSelect Medical Specialty Hospital [facility]06-29-2022 Miscellaneous Notes* Telephone Encounter - Jerrica Rothman RPh - 09/12/2021 11:32 AM EDT Stp - reviewed Dr. King's note from yesterday's OV. Pt reports no further issues - bleeding concerns. She resumed yesterday taking 1mg - 09/11. Advised her to continue her current dose and retest next week. Jerrica Rothman PharmD * Telephone Encounter - Maria A Camacho ([employer]) - 09/12/2021 9:03 AM EDT PATIENT CALL Patient called call center regarding procedure. Patient called and left message after hours that stated she had her procedure on 09/11 and MD had advised her to resume her warfarin. Patient wanted to call and let [facility] know. Patient can be reached at [phone]. Maria A Camacho ([employer]) * Telephone Encounter - Nury Andres [facility] - 09/11/2021 8:49 AM EDT Spoke to patient. She has not taken warfarin for past 5 days due to vaginal bleeding. She has a n appointment today with forest firefighter for cauterization. Advised she call PAC back after appt to let us know when she can resume warfarin. PT INR (no units) Date Value 06/06/2021 3.1 (biotel) 05/23/2021 2.5 (biotel) 03/15/2021 1.9 INR Home CoaguChek (no units) Date Value 09/10/2021 1.6 09/04/2021 2.0 08/22/2021 2.7 Nury Andres, Pharmacist * Telephone Encounter - Kevin Torres ([employer]) - 09/11/2021 8:42 AM EDT PATIENT CALL Judith called call center regarding results and left message after hours 09/10/2021 at 7:30pm. Patient also called and left message (transferred from [facility]) stating that she is having some bleedingissues and hasn't taken warfarin for at least five days. Please see yesterdays OIL TESTER encounter as well. Received call from [employer] Remote INR for patient. Patient tested on 09/10/2021 with out of range INR result of 1.6. PT INR (no units) Date Value 06/06/2021 3.1 (biotel) 05/23/2021 2.5 (biotel) 03/15/2021 1.9 INR Home CoaguChek (no units) Date Value 09/10/2021 1.6 09/04/2021 2.0 08/22/2021 2.7 Patient can be reached at [phone]. 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 fcvnhtw-ulgotugaj-dhmwzbp D3 500 mg-5 mcg (200 unit) per [...] GENERAL: pleasant, female in no apparent distress REHEAT FURNACE OPERATOR: normal external genitalia, no blood present. [...] Making Jayde Hebert MD documented in this encounterSelect Medical Specialty Hospital - [facility]ull06-27-2022 Miscellaneous Notes* Telephone Encounter - Juliet Cuevas [...] with daughter. She has an appointment with Uro/Fountain Pen Nibs Inspector, Dr. Hernández on 09/26. Is this ok [...] urology. Jayde Hebert MD documented in this encounterSelect Medical Specialty Hospital - Tr[facility]ull06-24-2022 Miscellaneous Notes* Telephone Encounter - An Ta APRN.CNP - 09/07/2021 8:02 AM EDT Noted. Please let us know if they need anything else from us. Thank you An Ta APRN.CNP * Telephone Encounter - Maria A Khanna RN - 09/06/2021 12:55 PM EDT Sheryl with [facility] called and reports Pt is thinking of coming and living in their Assisted Living facilities. Sent Face sheet and last OV notes to fax # [phone]. documented in this encounterSelect Medical Specialty Hospital - [facility]ull06-22-2022 History of Present illness Narrative* Cecilio Ibarra, DO - 09/05/2021 12:58 PM EDT Images from the original note were not included. [facility] Luis Miguel Kolb Department of Cardiovascular Medicine Established HPI: Christian Landrum is a 86 year old female with a history of paroxysmal AF (coumadin), rheumaticmitral valve regurgitation, HTN, HLD, STUART, breast cancer, PMR, and OA. She was last seen by me on 12/22/20 where a pharmacologic nuclear stress test was ordered and seen for telephone visit by PACKAGER OR PACKER AND WEIGHER 04/19/21. MPI showed no evidence of ischemia or infarction. She was hospitalized in June at [facility] and in July 2021 in [place] both for UTI and fever. She continues [...] DO, FACC, FCCP, FACOI documented in this encounterSelect Medical Specialty Hospital - [facility]ull06-22-2022 Miscellaneous Notes* Telephone Encounter - Jerrica Rothman RPh - 09/05/2021 9:09 AM EDT [employer] message sent for INR therapeutic range. documented in this encounterSelect Medical Specialty Hospital - [facility]ull06-17-2022 Miscellaneous Notes* Telephone Encounter - Kamila Bentley LPN - 08/31/2021 7:49 AM EDT Please see pt's mychart message and pended order below. Please advise. Kamila Bentley LPN documented in this encounterSelect Medical Specialty Hospital - [facility]06-16-2022 History of Present illness Narrative* Jayde Hebert [...] Menarche: 12; Age at 1st : 26; Fountain Pen Nibs Inspector History LMP: Postmenopausal Age at Menarche: Age at First : Age at Menopause: Fountain Pen Nibs Inspector History Comments: Sexual Activity: Not Currently; Male [...] benign mass on liver PMR (polymyalgia rheumatica) ([facility]) 2012 Pure hypercholesterolemia Snoring Squamous cell [...] Take 1 tablet by mouth once daily. ffrfhkr-jzkxfluyv-bccmljl D3 500 mg-5 mcg (200 unit) per [...] Making Jayde Hebert MD documented in this encounterSelect Medical Specialty Hospital [facility]06-14-2022 History of Present illness Narrative* Jayde Hebert [...] 50+ Menarche: 12; Age at 1st : Fountain Pen Nibs Inspector History LMP: Postmenopausal Age at Menarche: Age at First : Age at Menopause: Fountain Pen Nibs Inspector History Comments: Sexual Activity: Not Currently; Male [...] Take 1 tablet by mouth once daily. nvmlloy-pxeudkqjb-jcwzhts D3 500 mg-5 mcg (200 unit) per [...] external genitalia normal, normal Bartholin's glands, urethra, [place]'s glands, no vulvar lesions, good vaginal support, [...] Making Jayde Hebert MD documented in this encounterSelect Medical Specialty Hospital [facility]06-12-2022 History of Present illness Narrative* Jayde Hebert MD - 08/26/2021 3:21 PM EDT Patient underwent hysteroscopy D&C at [facility] on 08/23/2021 without complications. She was discharged home with routine instructions and follow-up. Pathology is pending. No discrete polyp visualized. Jayde Hebert MD documented in this encounterSelect Medical Specialty Hospital [facility]06-08-2022 Miscellaneous Notes* Telephone Encounter - Jerrica Rothman, [facility] - 08/22/2021 10:10 AM EDT [facility] Anticoagulation Episode Summary Anticoagulation Care Providers Provider Role Specialty Phone number Galina Iraheta MD [facility] Internal Medicine [phone] Christian Landrum is a 86 year old [...] * Unknown Zestril [Lisinopril] Indication for Warfarin: supervisor 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 Paroxysmal atrial fibrillation [...] Pharmacy Anticoagulation Clinic Pharmacy Anticoagulation Clinic Pager: [phone] . documented in this encounterSelect Medical Specialty Hospital [facility]06-03-2022 Miscellaneous Notes* Telephone Encounter - Corinna Arenas, [facility] - 08/17/2021 10:26 AM EDT [facility] Clinic Anticoagulation Episode Summary Anticoagulation Care Providers Provider Role Specialty Phone number Galina Iraheta MD Responsible Internal Medicine [phone] Christian Landrum is a 86 year old [...] * Unknown Zestril [Lisinopril] Indication for Warfarin: supervisor 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 Paroxysmal atrial fibrillation (hcc) Anticoagulation Episode Summary Current INR goal: 2.0-3.0 Assessment: INR result of 2.6 is therapeutic Plan: Called and spoke to patient/caregiver Advised patient to continue current weekly dose Next home INR check scheduled on 08/22/2021 Patient is having vaginal bleeding, is scheduled for d&c with polypectomy on 08/23; was advised by REHEAT FURNACE OPERATOR that warfarin isn't usually held for the procedure Advised to test INR the day prior to ensure it isn't elevated Patient verbalizes understanding of the plan. Patient denies need for refills. Corinna Arenas RPh Clinical Pharmacist, Pharmacy Anticoagulation Clinic Pharmacy Anticoagulation Clinic Pager: [phone] . documented in this encounterSelect Medical Specialty Hospital [facility]06-02-2022 Miscellaneous Notes* Telephone Encounter - Madyson Agosto [...] call office. Patient is scheduled at [facility] for surgery on 08/29/2021 @ 7:[address] [facility] will call with arrival time.Phone PAT is 08/23/2021 8:00 am. Patient needs 2 week post-op documented in this encounterSelect Medical Specialty Hospital [facility]06-01-2022 History and physical note * Jayde Hebert [...] tablet by mouth once daily. 90 tablet3 iuttpwh-trazwhsue-cyfapkp D3 500 mg-5 mcg (200 unit) per [...] allergies Jayde Hebert M.D. 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 yzcynvs-gknzusnca-fjmkxnk D3 500 mg-5 mcg (200 unit) per [...] one but not sure this is satisfactory long term care social worker. Use vaginal estrogne 2-3 times a week Patient is likely going to need a cholecystectomy but her surgeon wanted her to have the hysteroscopy D&C and the pathology returned on that before she proceeded with the more invasive cholecystectomy. Medical Decision Making Jayde Hebert MD documented in this encounterSelect Medical Specialty Hospital [facility]06-01-2022 Miscellaneous Notes* Telephone Encounter - An Ta APRN.CNP - 08/15/2021 9:01 AM EDT Patient admitted to hospital. Nitrofurantion discontinued. An Ta APRN.CNP documented in this encounterSelect Medical Specialty Hospital - [facility]05-31-2022 Miscellaneous Notes* Telephone Encounter - Nury Andres RPh - 08/14/2021 4:37 PM EDT [facility]tico[facility] Clinic Anticoagulation Episode Summary Anticoagulation Care Providers Provider Role Specialty Phone number Galina Iraheta MD [facility] Internal Medicine [phone] Christian Landrum is a 86 year old [...] Pharmacy Anticoagulation Clinic Pharmacy Anticoagulation Clinic Pager: [phone] . documented in this encounterSelect Medical Specialty Hospital - [facility]05-29-2022 Miscellaneous Notes* Telephone Encounter - Daysi Riddle [...] Daughter will drive her mother to [facility]. Reason for Disposition [1] Unable to urinate (or only a few drops) > 4 hours AND [2] bladder feels very full (e.g., palpable bladder or strong urge to urinate) Protocols used: URINE - BLOOD IN-ADULT- documented in this encounterSelect Medical Specialty Hospital - [facility]05-27-2022 Miscellaneous Notes* Telephone Encounter - Maria A [...] with Pam in lab who spoke with [facility] lab,[facility] was having issues with those orders site wide and orders were cancelled and samples threw out. Patient will need to have new sample collected if still having symptoms. * Telephone Encounter - Yoly Clayton Ma - 08/10/2021 4:12 PM EDT ----- Message from An Ta APRN.CNP sent at 08/10/2021 3:45 PM EDT ----- Please call lab to clarify culture. Was showing in process and now shows as canceled. Thank you An Ta APRN.CNP documented in this encounterSelect Medical Specialty Hospital [facility]05-25-2022 History of Present illness Narrative* An Ta APRN.CNP - 08/08/2021 2:12 PM EDT CC: Patient presents with: Recheck: Hosp follow up, HPI Christian Landrum is a 86 year old female who presents today for hospital follow- up with daughter who drove her to appointment. Facility: [facility] Date of visit: 07/06/21 - 07/12/21 [...] polyp is addressed and she sees her prescriptionist for her cirrhosis. Post discharge she spent 2 weks for OT and PT at [facility] where is currently on hospice. Now [...] Take 1 tablet by mouth once daily. ejkdgkc-zkecesftb-soocqhv D3 500 mg-5 mcg (200 unit) per [...] with more than 50% of the total dzve-qr-ikck time of the visit in counseling / coordination of care. Prescription instructions reviewed with patient as applicable. Potential red flag symptoms discussed with the patient. Reviewed appropriate action plan to take if red flag symptoms occur. Patient agreeable to treatment plan. An Ta APRN.CNP documented in this encounterSelect Medical Specialty [facility]05-17-2022 Miscellaneous Notes* Telephone Encounter - Nury Andres RPh - 07/31/2021 4:00 PM EDT [facility] Clinic Anticoagulation Episode Summary Anticoagulation Care Providers Provider Role Specialty Phone number Galina Iraheta MD [facility] Internal Medicine [phone] Christian Landrum is a 86 year old [...] Pharmacy Anticoagulation Clinic Pharmacy Anticoagulation Clinic Pager: [phone] . documented in this encounterSelect Medical Specialty Hospital [facility]05-13-2022 Miscellaneous Notes* Telephone Encounter - Maria A Khanna RN - 07/27/2021 12:59 PM EDT [facility] called and is notified of providers message. She voices understanding. Maria A Khanna RN * Telephone Encounter - An Ta APRN.CNP - 07/27/2021 12:41 PM EDT Provider agrees to follow. Thank you An Ta APRN.INGE * Telephone Encounter - Violet Rockwell RN - 07/27/2021 10:59 AM EDT Ricky Brown, [facility], reports patient is being discharged from [facility] tomorrow with orders for PT & OT. Asking if pcp agrees to follow? Asking for reply today, as they plan to see patient on Friday. [phone] documented in this encounterSelect Medical Specialty Hospital [facility]05-10-2022 Miscellaneous Notes* Telephone Encounter - Jocy Scherer - 07/24/2021 2:04 PM EDT LVM with patient and sent msg. Appointment with Shalom on 07/27 needs rescheduled first available. Appt has been cancelled. documented in this encounterSelect Medical Specialty Hospital [facility]05-06-2022 Miscellaneous Notes* Telephone Encounter - Juliet Cuevas [...] polypectomy more, but she ended up at [facility] last month for a week d/t multiple medical problems one of thema UTI. Calling today because she is starting with urinary frequency again and worsening vaginal dryness. She has not used estrace cream since 02/2021 sometime. Offered appointment today, but patient is still at [facility] for rehab. Advised to speak to [...] advise. Inge Salter RN documented in this encounterSelect Medical Specialty Hospital [facility]05-04-2022 Miscellaneous Notes* Telephone Encounter - Vania Guillory [...] PAC team to f/u. documented in this encounterSelect Medical Specialty Hospital - [facility]ull04-22-2022 History of Past illness Narrative* Problem Noted Date Resolved Date Dysuria 07/06/2021 07/08/2021 Obesity, Class I, BMI 30-34.9 01/12/2021 GI bleed 01/12/2021 01/14/2021 Acute blood loss anemia 01/12/2021 01/15/20 21 LLQ pain 09/05/2017 04/09/2021 Overview: Added automatically from request for surgery [id number] Malignant neoplasm of lower- inner quadrant of right breast of female, estrogen receptor positive 06/03/2017 07/06/2021 Personal history of breast cancer 12/18/2016 04/09/2021 Overview: Added automatically from request for surgery [id number] Permanent atrial fibrillation 12/26/2015 Diverticulitis of large [...] of this encounter (statuses as of 07/11/2021) [facility] History of Past illness Narrative* Problem Noted Date Resolved Date Dysuria 07/06/2021 07/08/2021 Obesity, Class I, BMI 30-34.9 01/12/2021 GI bleed 01/12/2021 01/14/2021 Acute blood loss anemia 01/12/2021 01/15/20 21 LLQ pain 09/05/2017 04/09/2021 Overview: Added automatically from request for surgery [id number] Malignant neoplasm of lower- inner quadrant of right breast of female, estrogen receptor positive 06/03/2017 07/06/2021 Personal history of breast cancer 12/18/2016 04/09/2021 Overview: Added automatically from request for surgery [id number] Permanent atrial fibrillation 12/26/2015 Diverticulitis of large [...] of this encounter (statuses as of 07/16/2021) [facility] History of Past illness Narrative* Problem Noted Date Resolved Date Dysuria 07/06/2021 07/08/2021 Obesity, Class I, BMI 30-34.9 01/12/2021 GI bleed 01/12/2021 01/14/2021 Acute blood loss anemia 01/12/2021 01/15/20 21 LLQ pain 09/05/2017 04/09/2021 Overview: Added automatically from request for surgery [id number] Malignant neoplasm of lower- inner quadrant of right breast of female, estrogen receptor positive 06/03/2017 07/06/2021 Personal history of breast cancer 12/18/2016 04/09/2021 Overview: Added automatically from request for surgery [id number] Permanent atrial fibrillation 12/26/2015 Diverticulitis of large [...] of this encounter (statuses as of 07/18/2021) [facility] History of Past illness Narrative* Problem Noted Date Resolved Date Dysuria 07/06/2021 07/08/2021 Obesity, Class I, BMI 30-34.9 01/12/2021 GI bleed 01/12/2021 01/14/2021 Acute blood loss anemia 01/12/2021 01/15/20 21 LLQ pain 09/05/2017 04/09/2021 Overview: Added automatically from request for surgery [id number] Malignant neoplasm of lower- inner quadrant of right breast of female, estrogen receptor positive 06/03/2017 07/06/2021 Personal history of breast cancer 12/18/2016 04/09/2021 Overview: Added automatically from request for surgery [id number] Permanent atrial fibrillation 12/26/2015 Diverticulitis of large [...] of this encounter (statuses as of 07/20/2021) [facility] History of Past illness Narrative* Problem Noted Date Resolved Date Dysuria 07/06/2021 07/08/2021 Obesity, Class I, BMI 30-34.9 01/12/2021 GI bleed 01/12/2021 01/14/2021 Acute blood loss anemia 01/12/2021 01/15/20 21 LLQ pain 09/05/2017 04/09/2021 Overview: Added automatically from request for surgery [id number] Malignant neoplasm of lower- inner quadrant of right breast of female, estrogen receptor positive 06/03/2017 07/06/2021 Personal history of breast cancer 12/18/2016 04/09/2021 Overview: Added automatically from request for surgery [id number] Permanent atrial fibrillation 12/26/2015 Diverticulitis of large [...] of this encounter (statuses as of 07/24/2021) [facility] History of Past illness Narrative* Problem Noted Date Resolved Date Dysuria 07/06/2021 07/08/2021 Obesity, Class I, BMI 30-34.9 01/12/2021 GI bleed 01/12/2021 01/14/2021 Acute blood loss anemia 01/12/2021 01/15/20 21 LLQ pain 09/05/2017 04/09/2021 Overview: Added automatically from request for surgery [id number] Malignant neoplasm of lower- inner quadrant of right breast of female, estrogen receptor positive 06/03/2017 07/06/2021 Personal history of breast cancer 12/18/2016 04/09/2021 Overview: Added automatically from request for surgery [id number] Permanent atrial fibrillation 12/26/2015 Diverticulitis of large [...] of this encounter (statuses as of 07/24/2021) [facility] History of Past illness Narrative* Problem Noted Date Resolved Date Dysuria 07/06/2021 07/08/2021 Obesity, Class I, BMI 30-34.9 01/12/2021 GI bleed 01/12/2021 01/14/2021 Acute blood loss anemia 01/12/2021 01/15/20 21 LLQ pain 09/05/2017 04/09/2021 Overview: Added automatically from request for surgery [id number] Malignant neoplasm of lower- inner quadrant of right breast of female, estrogen receptor positive 06/03/2017 07/06/2021 Personal history of breast cancer 12/18/2016 04/09/2021 Overview: Added automatically from request for surgery [id number] Permanent atrial fibrillation 12/26/2015 Diverticulitis of large [...] of this encounter (statuses as of 07/27/2021) [facility] of Past illness Narrative* Problem Noted Date Resolved Date Dysuria 07/06/2021 07/08/2021 Obesity, Class I, BMI 30-34.9 01/12/2021 GI bleed 01/12/2021 01/14/2021 Acute blood loss anemia 01/12/2021 01/15/20 21 LLQ pain 09/05/2017 04/09/2021 Overview: Added automatically from request for surgery [id number] Malignant neoplasm of lower- inner quadrant of right breast of female, estrogen receptor positive 06/03/2017 07/06/2021 Personal history of breast cancer 12/18/2016 04/09/2021 Overview: Added automatically from request for surgery [id number] Permanent atrial fibrillation 12/26/2015 Diverticulitis of large [...] of this encounter (statuses as of 07/30/2021) [facility] History of Past illness Narrative* Problem Noted Date Resolved Date Dysuria 07/06/2021 07/08/2021 Obesity, Class I, BMI 30-34.9 01/12/2021 GI bleed 01/12/2021 01/14/2021 Acute blood loss anemia 01/12/2021 01/15/20 21 LLQ pain 09/05/2017 04/09/2021 Overview: Added automatically from request for surgery [id number] Malignant neoplasm of lower- inner quadrant of right breast of female, estrogen receptor positive 06/03/2017 07/06/2021 Personal history of breast cancer 12/18/2016 04/09/2021 Overview: Added automatically from request for surgery [id number] Permanent atrial fibrillation 12/26/2015 Diverticulitis of large [...] SKIN LEG 11/25/2005 02/17/2012 INTRADERMAL NEVI (MELANOCYTIC)/// DARIENL SKIN TRUNK 11/25/2005 02/17/2012 SKIN TAG PAPILLOMAS///SKIN [...] of this encounter (statuses as of 07/31/2021) [facility] History of Past illness Narrative* Problem Noted Date Resolved Date Dysuria 07/06/2021 07/08/2021 Obesity, Class I, BMI 30-34.9 01/12/2021 GI bleed 01/12/2021 01/14/2021 Acute blood loss anemia 01/12/2021 01/15/20 21 LLQ pain 09/05/2017 04/09/2021 Overview: Added automatically from request for surgery [id number] Malignant neoplasm of lower- inner quadrant of right breast of female, estrogen receptor positive 06/03/2017 07/06/2021 Personal history of breast cancer 12/18/2016 04/09/2021 Overview: Added automatically from request for surgery [id number] Permanent atrial fibrillation 12/26/2015 Diverticulitis of large [...] of this encounter (statuses as of 08/08/2021) [facility]04-22-2022 History of Past illness Narrative* Problem Noted Date Resolved Date Dysuria 07/06/2021 07/08/2021 Obesity, Class I, BMI 30-34.9 01/12/2021 GI bleed 01/12/2021 01/14/2021 Acute blood loss anemia 01/12/2021 01/15/20 21 LLQ pain 09/05/2017 04/09/2021 Overview: Added automatically from request for surgery [id number] Malignant neoplasm of lower- inner quadrant of right breast of female, estrogen receptor positive 06/03/2017 07/06/2021 Personal history of breast cancer 12/18/2016 04/09/2021 Overview: Added automatically from request for surgery [id number] Permanent atrial fibrillation 12/26/2015 Diverticulitis of large [...] of this encounter (statuses as of 08/10/2021) [facility]20[facility] History of Past illness Narrative* Problem Noted Date Resolved Date Dysuria 07/06/2021 07/08/2021 Obesity, Class I, BMI 30-34.9 01/12/2021 GI bleed 01/12/2021 01/14/2021 Acute blood loss anemia 01/12/2021 01/15/20 21 LLQ pain 09/05/2017 04/09/2021 Overview: Added automatically from request for surgery [id number] Malignant neoplasm of lower- inner quadrant of right breast of female, estrogen receptor positive 06/03/2017 07/06/2021 Personal history of breast cancer 12/18/2016 04/09/2021 Overview: Added automatically from request for surgery [id number] Permanent atrial fibrillation 12/26/2015 Diverticulitis of large [...] of this encounter (statuses as of 08/10/2021) [facility] History of Past illness Narrative* Problem Noted Date Resolved Date Dysuria 07/06/2021 07/08/2021 Obesity, Class I, BMI 30-34.9 01/12/2021 GI bleed 01/12/2021 01/14/2021 Acute blood loss anemia 01/12/2021 01/15/20 21 LLQ pain 09/05/2017 04/09/2021 Overview: Added automatically from request for surgery [id number] Malignant neoplasm of lower- inner quadrant of right breast of female, estrogen receptor positive 06/03/2017 07/06/2021 Personal history of breast cancer 12/18/2016 04/09/2021 Overview: Added automatically from request for surgery [id number] Permanent atrial fibrillation 12/26/2015 Diverticulitis of large [...] of this encounter (statuses as of 08/12/2021) [facility] History of Past illness Narrative* Problem Noted Date Resolved Date Dysuria 07/06/2021 07/08/2021 Obesity, Class I, BMI 30-34.9 01/12/2021 GI bleed 01/12/2021 01/14/2021 Acute blood loss anemia 01/12/2021 01/15/20 21 LLQ pain 09/05/2017 04/09/2021 Overview: Added automatically from request for surgery [id number] Malignant neoplasm of lower- inner quadrant of right breast of female, estrogen receptor positive 06/03/2017 07/06/2021 Personal history of breast cancer 12/18/2016 04/09/2021 Overview: Added automatically from request for surgery [id number] Permanent atrial fibrillation 12/26/2015 Diverticulitis of large [...] few months, it was started by Dr. Mernio on recommendation of Dr. Angeline nath Last Assessment & Plan: She is on asacol for the past few months, it was started by Dr. Merino on recommendation of Dr. Angeline nath documented as of this encounter (statuses as of 08/14/2021) [facility]2022 History of Past illness Narrative* Problem Noted Date Resolved Date Dysuria 07/06/2021 07/08/2021 Obesity, Class I, BMI 30-34.9 01/12/2021 GI bleed 01/12/2021 01/14/2021 Acute blood loss anemia 01/12/2021 01/15/20 LLQ pain 09/05/2017 04/09/2021 Overview: Added automatically from request for surgery [id number] Malignant neoplasm of lower- inner quadrant of right breast of female, estrogen receptor positive 06/03/2017 07/06/2021 Personal history of breast cancer 12/18/2016 04/09/2021 Overview: Added automatically from request for surgery [id number] Permanent atrial fibrillation 12/26/2015 Diverticulitis of large [...] of this encounter (statuses as of 08/15/2021) [facility] History of Past illness Narrative* Problem Noted Date Resolved Date Dysuria 07/06/2021 07/08/2021 Obesity, Class I, BMI 30-34.9 01/12/2021 GI bleed 01/12/2021 01/14/2021 Acute blood loss anemia 01/12/2021 01/15/20 LLQ pain 09/05/2017 04/09/2021 Overview: Added automatically from request for surgery [id number] Malignant neoplasm of lower- inner quadrant of right breast of female, estrogen receptor positive 06/03/2017 07/06/2021 Personal history of breast cancer 12/18/2016 04/09/2021 Overview: Added automatically from request for surgery [id number] Permanent atrial fibrillation 12/26/2015 Diverticulitis of large [...] of this encounter (statuses as of 08/16/2021) [facility] History of Past illness Narrative* Problem Noted Date Resolved Date Dysuria 07/06/2021 07/08/2021 Obesity, Class I, BMI 30-34.9 01/12/2021 GI bleed 01/12/2021 01/14/2021 Acute blood loss anemia 01/12/2021 01/15/20 21 LLQ pain 09/05/2017 04/09/2021 Overview: Added automatically from request for surgery [id number] Malignant neoplasm of lower- inner quadrant of right breast of female, estrogen receptor positive 06/03/2017 07/06/2021 Personal history of breast cancer 12/18/2016 04/09/2021 Overview: Added automatically from request for surgery [id number] Permanent atrial fibrillation 12/26/2015 Diverticulitis of large [...] of this encounter (statuses as of 08/17/2021) [facility] History of Past illness Narrative* Problem Noted Date Resolved Date Dysuria 07/06/2021 07/08/2021 Obesity, Class I, BMI 30-34.9 01/12/2021 GI bleed 01/12/2021 01/14/2021 Acute blood loss anemia 01/12/2021 01/15/20 21 LLQ pain 09/05/2017 04/09/2021 Overview: Added automatically from request for surgery [id number] Malignant neoplasm of lower- inner quadrant of right breast of female, estrogen receptor positive 06/03/2017 07/06/2021 Personal history of breast cancer 12/18/2016 04/09/2021 Overview: Added automatically from request for surgery [id number] Permanent atrial fibrillation 12/26/2015 Diverticulitis of large [...] of this encounter (statuses as of 08/20/2021) [facility] History of Past illness Narrative* Problem Noted Date Resolved Date Dysuria 07/06/2021 07/08/2021 Obesity, Class I, BMI 30-34.9 01/12/2021 GI bleed 01/12/2021 01/14/2021 Acute blood loss anemia 01/12/2021 01/15/20 LLQ pain 09/05/2017 04/09/2021 Overview: Added automatically from request for surgery [id number] Malignant neoplasm of lower- inner quadrant of right breast of female, estrogen receptor positive 06/03/2017 07/06/2021 Personal history of breast cancer 12/18/2016 04/09/2021 Overview: Added automatically from request for surgery [id number] Permanent atrial fibrillation 12/26/2015 Diverticulitis of large [...] of this encounter (statuses as of 08/22/2021) [facility] History of Past illness Narrative* Problem Noted Date Resolved Date Dysuria 07/06/2021 07/08/2021 Obesity, Class I, BMI 30-34.9 01/12/2021 GI bleed 01/12/2021 01/14/2021 Acute blood loss anemia 01/12/2021 01/15/20 LLQ pain 09/05/2017 04/09/2021 Overview: Added automatically from request for surgery [id number] Malignant neoplasm of lower- inner quadrant of right breast of female, estrogen receptor positive 06/03/2017 07/06/2021 Personal history of breast cancer 12/18/2016 04/09/2021 Overview: Added automatically from request for surgery [id number] Permanent atrial fibrillation 12/26/2015 Diverticulitis of large [...] of this encounter (statuses as of 08/26/2021) [facility] History of Past illness Narrative* Problem Noted Date Resolved Date Dysuria 07/06/2021 07/08/2021 Obesity, Class I, BMI 30-34.9 01/12/2021 GI bleed 01/12/2021 01/14/2021 Acute blood loss anemia 01/12/2021 01/15/20 21 LLQ pain 09/05/2017 04/09/2021 Overview: Added automatically from request for surgery [id number] Malignant neoplasm of lower- inner quadrant of right breast of female, estrogen receptor positive 06/03/2017 07/06/2021 Personal history of breast cancer 12/18/2016 04/09/2021 Overview: Added automatically from request for surgery [id number] Permanent atrial fibrillation 12/26/2015 Diverticulitis of large [...] of this encounter (statuses as of 08/26/2021) [facility] History of Past illness Narrative* Problem Noted Date Resolved Date Dysuria 07/06/2021 07/08/2021 Obesity, Class I, BMI 30-34.9 01/12/2021 GI bleed 01/12/2021 01/14/2021 Acute blood loss anemia 01/12/2021 01/15/20 21 LLQ pain 09/05/2017 04/09/2021 Overview: Added automatically from request for surgery [id number] Malignant neoplasm of lower- inner quadrant of right breast of female, estrogen receptor positive 06/03/2017 07/06/2021 Personal history of breast cancer 12/18/2016 04/09/2021 Overview: Added automatically from request for surgery [id number] Permanent atrial fibrillation 12/26/2015 Diverticulitis of large [...] of this encounter (statuses as of 08/26/2021) [facility] History of Past illness Narrative* Problem Noted Date Resolved Date Dysuria 07/06/2021 07/08/2021 Obesity, Class I, BMI 30-34.9 01/12/2021 GI bleed 01/12/2021 01/14/2021 Acute blood loss anemia 01/12/2021 01/15/20 LLQ pain 09/05/2017 04/09/2021 Overview: Added automatically from request for surgery [id number] Malignant neoplasm of lower- inner quadrant of right breast of female, estrogen receptor positive 06/03/2017 07/06/2021 Personal history of breast cancer 12/18/2016 04/09/2021 Overview: Added automatically from request for surgery [id number] Permanent atrial fibrillation 12/26/2015 Diverticulitis of large [...] of this encounter (statuses as of 08/26/2021) [facility] History of Past illness Narrative* Problem Noted Date Resolved Date Dysuria 07/06/2021 07/08/2021 Obesity, Class I, BMI 30-34.9 01/12/2021 GI bleed 01/12/2021 01/14/2021 Acute blood loss anemia 01/12/2021 01/15/20 LLQ pain 09/05/2017 04/09/2021 Overview: Added automatically from request for surgery [id number] Malignant neoplasm of lower- inner quadrant of right breast of female, estrogen receptor positive 06/03/2017 07/06/2021 Personal history of breast cancer 12/18/2016 04/09/2021 Overview: Added automatically from request for surgery [id number] Permanent atrial fibrillation 12/26/2015 Diverticulitis of large [...] of this encounter (statuses as of 08/28/2021) [facility] History of Past illness Narrative* Problem Noted Date Resolved Date Dysuria 07/06/2021 07/08/2021 Obesity, Class I, BMI 30-34.9 01/12/2021 GI bleed 01/12/2021 01/14/2021 Acute blood loss anemia 01/12/2021 01/15/20 21 LLQ pain 09/05/2017 04/09/2021 Overview: Added automatically from request for surgery [id number] Malignant neoplasm of lower- inner quadrant of right breast of female, estrogen receptor positive 06/03/2017 07/06/2021 Personal history of breast cancer 12/18/2016 04/09/2021 Overview: Added automatically from request for surgery [id number] Permanent atrial fibrillation 12/26/2015 Diverticulitis of large [...] of this encounter (statuses as of 08/28/2021) [facility] History of Past illness Narrative* Problem Noted Date Resolved Date Dysuria 07/06/2021 07/08/2021 Obesity, Class I, BMI 30-34.9 01/12/2021 GI bleed 01/12/2021 01/14/2021 Acute blood loss anemia 01/12/2021 01/15/20 LLQ pain 09/05/2017 04/09/2021 Overview: Added automatically from request for surgery [id number] Malignant neoplasm of lower- inner quadrant of right breast of female, estrogen receptor positive 06/03/2017 07/06/2021 Personal history of breast cancer 12/18/2016 04/09/2021 Overview: Added automatically from request for surgery [id number] Permanent atrial fibrillation 12/26/2015 Diverticulitis of large [...] of this encounter (statuses as of 08/30/2021) [facility] History of Past illness Narrative* Problem Noted Date Resolved Date Dysuria 07/06/2021 07/08/2021 Obesity, Class I, BMI 30-34.9 01/12/2021 GI bleed 01/12/2021 01/14/2021 Acute blood loss anemia 01/12/2021 01/15/20 21 LLQ pain 09/05/2017 04/09/2021 Overview: Added automatically from request for surgery [id number] Malignant neoplasm of lower- inner quadrant of right breast of female, estrogen receptor positive 06/03/2017 07/06/2021 Personal history of breast cancer 12/18/2016 04/09/2021 Overview: Added automatically from request for surgery [id number] Permanent atrial fibrillation 12/26/2015 Diverticulitis of large [...] of this encounter (statuses as of 08/31/2021) [facility] History of Past illness Narrative* Problem Noted Date Resolved Date Dysuria 07/06/2021 07/08/2021 Obesity, Class I, BMI 30-34.9 01/12/2021 GI bleed 01/12/2021 01/14/2021 Acute blood loss anemia 01/12/2021 01/15/20 21 LLQ pain 09/05/2017 04/09/2021 Overview: Added automatically from request for surgery [id number] Malignant neoplasm of lower- inner quadrant of right breast of female, estrogen receptor positive 06/03/2017 07/06/2021 Personal history of breast cancer 12/18/2016 04/09/2021 Overview: Added automatically from request for surgery [id number] Permanent atrial fibrillation 12/26/2015 Diverticulitis of large [...] of this encounter (statuses as of 09/05/2021) [facility] History of Past illness Narrative* Problem Noted Date Resolved Date Dysuria 07/06/2021 07/08/2021 Obesity, Class I, BMI 30-34.9 01/12/2021 GI bleed 01/12/2021 01/14/2021 Acute blood loss anemia 01/12/2021 01/15/20 21 LLQ pain 09/05/2017 04/09/2021 Overview: Added automatically from request for surgery [id number] Malignant neoplasm of lower- inner quadrant of right breast of female, estrogen receptor positive 06/03/2017 07/06/2021 Personal history of breast cancer 12/18/2016 04/09/2021 Overview: Added automatically from request for surgery [id number] Permanent atrial fibrillation 12/26/2015 Diverticulitis of large [...] of this encounter (statuses as of 09/05/2021) [facility] History of Past illness Narrative* Problem Noted Date Resolved Date Dysuria 07/06/2021 07/08/2021 Obesity, Class I, BMI 30-34.9 01/12/2021 GI bleed 01/12/2021 01/14/2021 Acute blood loss anemia 01/12/2021 01/15/20 21 LLQ pain 09/05/2017 04/09/2021 Overview: Added automatically from request for surgery [id number] Malignant neoplasm of lower- inner quadrant of right breast of female, estrogen receptor positive 06/03/2017 07/06/2021 Personal history of breast cancer 12/18/2016 04/09/2021 Overview: Added automatically from request for surgery [id number] Permanent atrial fibrillation 12/26/2015 Diverticulitis of large [...] Merino on recommendation of Dr. Angeline ntah Last Assessment & Plan: She is on asacol for the past few months, it was started by Dr. Merino on recommendation of Dr. Angeline nath documented as of this encounter (statuses as of 09/07/2021) [facility] History of Past illness Narrative* Problem Noted Date Resolved Date Dysuria 07/06/2021 07/08/2021 Obesity, Class I, BMI 30-34.9 01/12/2021 GI bleed 01/12/2021 01/14/2021 Acute blood loss anemia 01/12/2021 01/15/20 LLQ pain 09/05/2017 04/09/2021 Overview: Added automatically from request for surgery [id number] Malignant neoplasm of lower- inner quadrant of right breast of female, estrogen receptor positive 06/03/2017 07/06/2021 Personal history of breast cancer 12/18/2016 04/09/2021 Overview: Added automatically from request for surgery [id number] Permanent atrial fibrillation 12/26/2015 Diverticulitis of large [...] of this encounter (statuses as of 09/10/2021) [facility] History of Past illness Narrative* Problem Noted Date Resolved Date Dysuria 07/06/2021 07/08/2021 Obesity, Class I, BMI 30-34.9 01/12/2021 GI bleed 01/12/2021 01/14/2021 Acute blood loss anemia 01/12/2021 01/15/20 21 LLQ pain 09/05/2017 04/09/2021 Overview: Added automatically from request for surgery [id number] Malignant neoplasm of lower- inner quadrant of right breast of female, estrogen receptor positive 06/03/2017 07/06/2021 Personal history of breast cancer 12/18/2016 04/09/2021 Overview: Added automatically from request for surgery [id number] Permanent atrial fibrillation 12/26/2015 Diverticulitis of large [...] of this encounter (statuses as of 09/11/2021) [facility] History of Past illness Narrative* Problem Noted Date Resolved Date Dysuria 07/06/2021 07/08/2021 Obesity, Class I, BMI 30-34.9 01/12/2021 GI bleed 01/12/2021 01/14/2021 Acute blood loss anemia 01/12/2021 01/15/20 21 LLQ pain 09/05/2017 04/09/2021 Overview: Added automatically from request for surgery [id number] Malignant neoplasm of lower- inner quadrant of right breast of female, estrogen receptor positive 06/03/2017 07/06/2021 Personal history of breast cancer 12/18/2016 04/09/2021 Overview: Added automatically from request for surgery [id number] Permanent atrial fibrillation 12/26/2015 Diverticulitis of large [...] of this encounter (statuses as of 09/12/2021) [facility] History of Past illness Narrative* Problem Noted Date Resolved Date Dysuria 07/06/2021 07/08/2021 Obesity, Class I, BMI 30-34.9 01/12/2021 GI bleed 01/12/2021 01/14/2021 Acute blood loss anemia 01/12/2021 01/15/20 LLQ pain 09/05/2017 04/09/2021 Overview: Added automatically from request for surgery [id number] Malignant neoplasm of lower- inner quadrant of right breast of female, estrogen receptor positive 06/03/2017 07/06/2021 Personal history of breast cancer 12/18/2016 04/09/2021 Overview: Added automatically from request for surgery [id number] Permanent atrial fibrillation 12/26/2015 Diverticulitis of large [...] of this encounter (statuses as of 09/18/2021) [facility] History of Past illness Narrative* Problem Noted Date Resolved Date Dysuria 07/06/2021 07/08/2021 Obesity, Class I, BMI 30-34.9 01/12/2021 GI bleed 01/12/2021 01/14/2021 Acute blood loss anemia 01/12/2021 01/15/20 LLQ pain 09/05/2017 04/09/2021 Overview: Added automatically from request for surgery [id number] Malignant neoplasm of lower- inner quadrant of right breast of female, estrogen receptor positive 06/03/2017 07/06/2021 Personal history of breast cancer 12/18/2016 04/09/2021 Overview: Added automatically from request for surgery [id number] Permanent atrial fibrillation 12/26/2015 Diverticulitis of large [...] of this encounter (statuses as of 09/18/2021) [facility] History of Past illness Narrative* Problem Noted Date Resolved Date Dysuria 07/06/2021 07/08/2021 Obesity, Class I, BMI 30-34.9 01/12/2021 GI bleed 01/12/2021 01/14/2021 Acute blood loss anemia 01/12/2021 01/15/20 21 LLQ pain 09/05/2017 04/09/2021 Overview: Added automatically from request for surgery [id number] Malignant neoplasm of lower- inner quadrant of right breast of female, estrogen receptor positive 06/03/2017 07/06/2021 Personal history of breast cancer 12/18/2016 04/09/2021 Overview: Added automatically from request for surgery [id number] Permanent atrial fibrillation 12/26/2015 Diverticulitis of large [...] of this encounter (statuses as of 09/19/2021) [facility] History of Past illness Narrative* Problem Noted Date Resolved Date Dysuria 07/06/2021 07/08/2021 Obesity, Class I, BMI 30-34.9 01/12/2021 GI bleed 01/12/2021 01/14/2021 Acute blood loss anemia 01/12/2021 01/15/20 21 LLQ pain 09/05/2017 04/09/2021 Overview: Added automatically from request for surgery [id number] Malignant neoplasm of lower- inner quadrant of right breast of female, estrogen receptor positive 06/03/2017 07/06/2021 Personal history of breast cancer 12/18/2016 04/09/2021 Overview: Added automatically from request for surgery [id number] Permanent atrial fibrillation 12/26/2015 Diverticulitis of large [...] Dr. Merino on recommendation of Dr. Angeline naht Last Assessment & Plan: She is on asacol for the past few months, it was started by Dr. Merino on recommendation of Dr. Angeline nath documented as of this encounter (statuses as of 09/28/2021) [facility] History of Past illness Narrative* Problem Noted Date Resolved Date Dysuria 07/06/2021 07/08/2021 Obesity, Class I, BMI 30-34.9 01/12/2021 GI bleed 01/12/2021 01/14/2021 Acute blood loss anemia 01/12/2021 01/15/20 21 LLQ pain 09/05/2017 04/09/2021 Overview: Added automatically from request for surgery [id number] Malignant neoplasm of lower- inner quadrant of right breast of female, estrogen receptor positive 06/03/2017 07/06/2021 Personal history of breast cancer 12/18/2016 04/09/2021 Overview: Added automatically from request for surgery [id number] Permanent atrial fibrillation 12/26/2015 Diverticulitis of large [...] of this encounter (statuses as of 10/02/2021) [facility] History of Past illness Narrative* Problem Noted Date Resolved Date Dysuria 07/06/2021 07/08/2021 Obesity, Class I, BMI 30-34.9 01/12/2021 GI bleed 01/12/2021 01/14/2021 Acute blood loss anemia 01/12/2021 01/15/20 21 LLQ pain 09/05/2017 04/09/2021 Overview: Added automatically from request for surgery [id number] Malignant neoplasm of lower- inner quadrant of right breast of female, estrogen receptor positive 06/03/2017 07/06/2021 Personal history of breast cancer 12/18/2016 04/09/2021 Overview: Added automatically from request for surgery [id number] Permanent atrial fibrillation 12/26/2015 Diverticulitis of large [...] of this encounter (statuses as of 10/11/2021) [facility] History of Past illness Narrative* Problem Noted Date Resolved Date Dysuria 07/06/2021 07/08/2021 Obesity, Class I, BMI 30-34.9 01/12/2021 GI bleed 01/12/2021 01/14/2021 Acute blood loss anemia 01/12/2021 01/15/20 LLQ pain 09/05/2017 04/09/2021 Overview: Added automatically from request for surgery [id number] Malignant neoplasm of lower- inner quadrant of right breast of female, estrogen receptor positive 06/03/2017 07/06/2021 Personal history of breast cancer 12/18/2016 04/09/2021 Overview: Added automatically from request for surgery [id number] Permanent atrial fibrillation 12/26/2015 Diverticulitis of large [...] of this encounter (statuses as of 10/15/2021) [facility] History of Past illness Narrative* Problem Noted Date Resolved Date Dysuria 07/06/2021 07/08/2021 Obesity, Class I, BMI 30-34.9 01/12/2021 GI bleed 01/12/2021 01/14/2021 Acute blood loss anemia 01/12/2021 01/15/20 LLQ pain 09/05/2017 04/09/2021 Overview: Added automatically from request for surgery [id number] Malignant neoplasm of lower- inner quadrant of right breast of female, estrogen receptor positive 06/03/2017 07/06/2021 Personal history of breast cancer 12/18/2016 04/09/2021 Overview: Added automatically from request for surgery [id number] Permanent atrial fibrillation 12/26/2015 Diverticulitis of large [...] of this encounter (statuses as of 10/15/2021) [facility] History of Past illness Narrative* Problem Noted Date Resolved Date Dysuria 07/06/2021 07/08/2021 Obesity, Class I, BMI 30-34.9 01/12/2021 GI bleed 01/12/2021 01/14/2021 Acute blood loss anemia 01/12/2021 01/15/20 21 LLQ pain 09/05/2017 04/09/2021 Overview: Added automatically from request for surgery [id number] Malignant neoplasm of lower- inner quadrant of right breast of female, estrogen receptor positive 06/03/2017 07/06/2021 Personal history of breast cancer 12/18/2016 04/09/2021 Overview: Added automatically from request for surgery [id number] Permanent atrial fibrillation 12/26/2015 Diverticulitis of large [...] of this encounter (statuses as of 10/16/2021) [facility]04-22-2022 History of Past illness Narrative* Problem Noted Date Resolved Date Dysuria 07/06/2021 07/08/2021 Obesity, Class I, BMI 30-34.9 01/12/2021 GI bleed 01/12/2021 01/14/2021 Acute blood loss anemia 01/12/2021 01/15/20 21 LLQ pain 09/05/2017 04/09/2021 Overview: Added automatically from request for surgery [id number] Malignant neoplasm of lower- inner quadrant of right breast of female, estrogen receptor positive 06/03/2017 07/06/2021 Personal history of breast cancer 12/18/2016 04/09/2021 Overview: Added automatically from request for surgery [id number] Permanent atrial fibrillation 12/26/2015 Diverticulitis of large [...] of this encounter (statuses as of 10/17/2021) [facility]2022 History of Past illness Narrative* Problem Noted Date Resolved Date Dysuria 07/06/2021 07/08/2021 Obesity, Class I, BMI 30-34.9 01/12/2021 GI bleed 01/12/2021 01/14/2021 Acute blood loss anemia 01/12/2021 01/15/20 LLQ pain 09/05/2017 04/09/2021 Overview: Added automatically from request for surgery [id number] Malignant neoplasm of lower- inner quadrant of right breast of female, estrogen receptor positive 06/03/2017 07/06/2021 Personal history of breast cancer 12/18/2016 04/09/2021 Overview: Added automatically from request for surgery [id number] Permanent atrial fibrillation 12/26/2015 Diverticulitis of large [...] of this encounter (statuses as of 10/17/2021) [facility] History of Past illness Narrative* Problem Noted Date Resolved Date Dysuria 07/06/2021 07/08/2021 Obesity, Class I, BMI 30-34.9 01/12/2021 GI bleed 01/12/2021 01/14/2021 Acute blood loss anemia 01/12/2021 01/15/20 21 LLQ pain 09/05/2017 04/09/2021 Overview: Added automatically from request for surgery [id number] Malignant neoplasm of lower- inner quadrant of right breast of female, estrogen receptor positive 06/03/2017 07/06/2021 Personal history of breast cancer 12/18/2016 04/09/2021 Overview: Added automatically from request for surgery [id number] Permanent atrial fibrillation 12/26/2015 Diverticulitis of large [...] of this encounter (statuses as of 10/22/2021) [facility] History of Past illness Narrative* Problem Noted Date Resolved Date Dysuria 07/06/2021 07/08/2021 Obesity, Class I, BMI 30-34.9 01/12/2021 GI bleed 01/12/2021 01/14/2021 Acute blood loss anemia 01/12/2021 01/15/20 21 LLQ pain 09/05/2017 04/09/2021 Overview: Added automatically from request for surgery [id number] Malignant neoplasm of lower- inner quadrant of right breast of female, estrogen receptor positive 06/03/2017 07/06/2021 Personal history of breast cancer 12/18/2016 04/09/2021 Overview: Added automatically from request for surgery [id number] Permanent atrial fibrillation 12/26/2015 Diverticulitis of large [...] of this encounter (statuses as of 11/02/2021) [facility] History of Past illness Narrative* Problem Noted Date Resolved Date Dysuria 07/06/2021 07/08/2021 Obesity, Class I, BMI 30-34.9 01/12/2021 GI bleed 01/12/2021 01/14/2021 Acute blood loss anemia 01/12/2021 01/15/20 LLQ pain 09/05/2017 04/09/2021 Overview: Added automatically from request for surgery [id number] Malignant neoplasm of lower- inner quadrant of right breast of female, estrogen receptor positive 06/03/2017 07/06/2021 Personal history of breast cancer 12/18/2016 04/09/2021 Overview: Added automatically from request for surgery [id number] Permanent atrial fibrillation 12/26/2015 Diverticulitis of large [...] of this encounter (statuses as of 11/06/2021) [facility] History of Past illness Narrative* Problem Noted Date Resolved Date Dysuria 07/06/2021 07/08/2021 Obesity, Class I, BMI 30-34.9 01/12/2021 GI bleed 01/12/2021 01/14/2021 Acute blood loss anemia 01/12/2021 01/15/20 21 LLQ pain 09/05/2017 04/09/2021 Overview: Added automatically from request for surgery [id number] Malignant neoplasm of lower- inner quadrant of right breast of female, estrogen receptor positive 06/03/2017 07/06/2021 Personal history of breast cancer 12/18/2016 04/09/2021 Overview: Added automatically from request for surgery [id number] Permanent atrial fibrillation 12/26/2015 Diverticulitis of large [...] of this encounter (statuses as of 11/13/2021) [facility] History of Past illness Narrative* Problem Noted Date Resolved Date Dysuria 07/06/2021 07/08/2021 Obesity, Class I, BMI 30-34.9 01/12/2021 GI bleed 01/12/2021 01/14/2021 Acute blood loss anemia 01/12/2021 01/15/20 21 LLQ pain 09/05/2017 04/09/2021 Overview: Added automatically from request for surgery [id number] Malignant neoplasm of lower- inner quadrant of right breast of female, estrogen receptor positive 06/03/2017 07/06/2021 Personal history of breast cancer 12/18/2016 04/09/2021 Overview: Added automatically from request for surgery [id number] Permanent atrial fibrillation 12/26/2015 Diverticulitis of large [...] of this encounter (statuses as of 12/11/2021) [facility] History of Past illness Narrative* Problem Noted Date Resolved Date Dysuria 07/06/2021 07/08/2021 Obesity, Class I, BMI 30-34.9 01/12/2021 GI bleed 01/12/2021 01/14/2021 Acute blood loss anemia 01/12/2021 01/15/20 LLQ pain 09/05/2017 04/09/2021 Overview: Added automatically from request for surgery [id number] Malignant neoplasm of lower- inner quadrant of right breast of female, estrogen receptor positive 06/03/2017 07/06/2021 Personal history of breast cancer 12/18/2016 04/09/2021 Overview: Added automatically from request for surgery [id number] Permanent atrial fibrillation 12/26/2015 Diverticulitis of large [...] of this encounter (statuses as of 12/25/2021) [facility] History of Past illness Narrative* Problem Noted Date Resolved Date Dysuria 07/06/2021 07/08/2021 Obesity, Class I, BMI 30-34.9 01/12/2021 GI bleed 01/12/2021 01/14/2021 Acute blood loss anemia 01/12/2021 01/15/20 LLQ pain 09/05/2017 04/09/2021 Overview: Added automatically from request for surgery [id number] Malignant neoplasm of lower- inner quadrant of right breast of female, estrogen receptor positive 06/03/2017 07/06/2021 Personal history of breast cancer 12/18/2016 04/09/2021 Overview: Added automatically from request for surgery [id number] Permanent atrial fibrillation 12/26/2015 Diverticulitis of large [...] of this encounter (statuses as of 01/02/2022) [facility] History of Past illness Narrative* Problem Noted Date Resolved Date Dysuria 07/06/2021 07/08/2021 Obesity, Class I, BMI 30-34.9 01/12/2021 GI bleed 01/12/2021 01/14/2021 Acute blood loss anemia 01/12/2021 01/15/20 21 LLQ pain 09/05/2017 04/09/2021 Overview: Added automatically from request for surgery [id number] Malignant neoplasm of lower- inner quadrant of right breast of female, estrogen receptor positive 06/03/2017 07/06/2021 Personal history of breast cancer 12/18/2016 04/09/2021 Overview: Added automatically from request for surgery [id number] Permanent atrial fibrillation 12/26/2015 Diverticulitis of large [...] of this encounter (statuses as of 01/08/2022) [facility] History of Past illness Narrative* Problem Noted Date Resolved Date Dysuria 07/06/2021 07/08/2021 Obesity, Class I, BMI 30-34.9 01/12/2021 GI bleed 01/12/2021 01/14/2021 Acute blood loss anemia 01/12/2021 01/15/20 LLQ pain 09/05/2017 04/09/2021 Overview: Added automatically from request for surgery [id number] Malignant neoplasm of lower- inner quadrant of right breast of female, estrogen receptor positive 06/03/2017 07/06/2021 Personal history of breast cancer 12/18/2016 04/09/2021 Overview: Added automatically from request for surgery [id number] Permanent atrial fibrillation 12/26/2015 Diverticulitis of large [...] of this encounter (statuses as of 01/21/2022) [facility] History of Past illness Narrative* Problem Noted Date Resolved Date Dysuria 07/06/2021 07/08/2021 Obesity, Class I, BMI 30-34.9 01/12/2021 GI bleed 01/12/2021 01/14/2021 Acute blood loss anemia 01/12/2021 01/15/20 21 LLQ pain 09/05/2017 04/09/2021 Overview: Added automatically from request for surgery [id number] Malignant neoplasm of lower- inner quadrant of right breast of female, estrogen receptor positive 06/03/2017 07/06/2021 Personal history of breast cancer 12/18/2016 04/09/2021 Overview: Added automatically from request for surgery [id number] Permanent atrial fibrillation 12/26/2015 Diverticulitis of large [...] Other diseases of pharynx, not elsewhere classif ied(339.29) 04/14/2013 Unspecified hemorrhoids without mention of compl [...] of this encounter (statuses as of 02/05/2022) [facility] History of Past illness Narrative* Problem Noted Date Resolved Date Dysuria 07/06/2021 07/08/2021 Obesity, Class I, BMI 30-34.9 01/12/2021 GI bleed 01/12/2021 01/14/2021 Acute blood loss anemia 01/12/2021 01/15/20 21 LLQ pain 09/05/2017 04/09/2021 Overview: Added automatically from request for surgery [id number] Malignant neoplasm of lower- inner quadrant of right breast of female, estrogen receptor positive 06/03/2017 07/06/2021 Personal history of breast cancer 12/18/2016 04/09/2021 Overview: Added automatically from request for surgery [id number] Permanent atrial fibrillation 12/26/2015 Diverticulitis of large [...] of this encounter (statuses as of 03/09/2022) [facility] History of Past illness Narrative* Problem Noted Date Resolved Date Dysuria 07/06/2021 07/08/2021 Obesity, Class I, BMI 30-34.9 01/12/2021 GI bleed 01/12/2021 01/14/2021 Acute blood loss anemia 01/12/2021 01/15/20 LLQ pain 09/05/2017 04/09/2021 Overview: Added automatically from request for surgery [id number] Malignant neoplasm of lower- inner quadrant of right breast of female, estrogen receptor positive 06/03/2017 07/06/2021 Personal history of breast cancer 12/18/2016 04/09/2021 Overview: Added automatically from request for surgery [id number] Permanent atrial fibrillation 12/26/2015 Diverticulitis of large [...] of this encounter (statuses as of 03/17/2022) [facility] History of Past illness Narrative* Problem Noted Date Resolved Date Dysuria 07/06/2021 07/08/2021 Obesity, Class I, BMI 30-34.9 01/12/2021 GI bleed 01/12/2021 01/14/2021 Acute blood loss anemia 01/12/2021 01/15/20 21 LLQ pain 09/05/2017 04/09/2021 Overview: Added automatically from request for surgery [id number] Malignant neoplasm of lower- inner quadrant of right breast of female, estrogen receptor positive 06/03/2017 07/06/2021 Personal history of breast cancer 12/18/2016 04/09/2021 Overview: Added automatically from request for surgery [id number] Permanent atrial fibrillation 12/26/2015 Diverticulitis of large [...] of this encounter (statuses as of 03/20/2022) [facility] History of Past illness Narrative* Problem Noted Date Resolved Date Dysuria 07/06/2021 07/08/2021 Obesity, Class I, BMI 30-34.9 01/12/2021 GI bleed 01/12/2021 01/14/2021 Acute blood loss anemia 01/12/2021 01/15/20 21 LLQ pain 09/05/2017 04/09/2021 Overview: Added automatically from request for surgery [id number] Malignant neoplasm of lower- inner quadrant of right breast of female, estrogen receptor positive 06/03/2017 07/06/2021 Personal history of breast cancer 12/18/2016 04/09/2021 Overview: Added automatically from request for surgery [id number] Permanent atrial fibrillation 12/26/2015 Diverticulitis of large [...] of this encounter (statuses as of 03/23/2022) [facility] History of Past illness Narrative* Problem Noted Date Resolved Date Dysuria 07/06/2021 07/08/2021 Obesity, Class I, BMI 30-34.9 01/12/2021 GI bleed 01/12/2021 01/14/2021 Acute blood loss anemia 01/12/2021 01/15/20 21 LLQ pain 09/05/2017 04/09/2021 Overview: Added automatically from request for surgery [id number] Malignant neoplasm of lower- inner quadrant of right breast of female, estrogen receptor positive 06/03/2017 07/06/2021 Personal history of breast cancer 12/18/2016 04/09/2021 Overview: Added automatically from request for surgery [id number] Permanent atrial fibrillation 12/26/2015 Diverticulitis of large [...] of this encounter (statuses as of 03/23/2022) [facility] History of Past illness Narrative* Problem Noted Date Resolved Date Dysuria 07/06/2021 07/08/2021 Obesity, Class I, BMI 30-34.9 01/12/2021 GI bleed 01/12/2021 01/14/2021 Acute blood loss anemia 01/12/2021 01/15/20 21 LLQ pain 09/05/2017 04/09/2021 Overview: Added automatically from request for surgery [id number] Malignant neoplasm of lower- inner quadrant of right breast of female, estrogen receptor positive 06/03/2017 07/06/2021 Personal history of breast cancer 12/18/2016 04/09/2021 Overview: Added automatically from request for surgery [id number] Permanent atrial fibrillation 12/26/2015 Diverticulitis of large [...] of this encounter (statuses as of 03/25/2022) [facility] History of Past illness Narrative* Problem Noted Date Resolved Date Dysuria 07/06/2021 07/08/2021 Obesity, Class I, BMI 30-34.9 01/12/2021 GI bleed 01/12/2021 01/14/2021 Acute blood loss anemia 01/12/2021 01/15/20 21 LLQ pain 09/05/2017 04/09/2021 Overview: Added automatically from request for surgery [id number] Malignant neoplasm of lower- inner quadrant of right breast of female, estrogen receptor positive 06/03/2017 07/06/2021 Personal history of breast cancer 12/18/2016 04/09/2021 Overview: Added automatically from request for surgery [id number] Permanent atrial fibrillation 12/26/2015 Diverticulitis of large [...] of this encounter (statuses as of 04/08/2022) [facility] History of Past illness Narrative* Problem Noted Date Resolved Date Dysuria 07/06/2021 07/08/2021 Obesity, Class I, BMI 30-34.9 01/12/2021 GI bleed 01/12/2021 01/14/2021 Acute blood loss anemia 01/12/2021 01/15/20 LLQ pain 09/05/2017 04/09/2021 Overview: Added automatically from request for surgery [id number] Malignant neoplasm of lower- inner quadrant of right breast of female, estrogen receptor positive 06/03/2017 07/06/2021 Personal history of breast cancer 12/18/2016 04/09/2021 Overview: Added automatically from request for surgery [id number] Permanent atrial fibrillation 12/26/2015 Diverticulitis of large [...] of this encounter (statuses as of 04/10/2022) [facility] History of Past illness Narrative* Problem Noted Date Resolved Date Dysuria 07/06/2021 07/08/2021 Obesity, Class I, BMI 30-34.9 01/12/2021 GI bleed 01/12/2021 01/14/2021 Acute blood loss anemia 01/12/2021 01/15/20 LLQ pain 09/05/2017 04/09/2021 Overview: Added automatically from request for surgery [id number] Malignant neoplasm of lower- inner quadrant of right breast of female, estrogen receptor positive 06/03/2017 07/06/2021 Personal history of breast cancer 12/18/2016 04/09/2021 Overview: Added automatically from request for surgery [id number] Permanent atrial fibrillation 12/26/2015 Diverticulitis of large [...] of this encounter (statuses as of 04/12/2022) [facility] History of Past illness Narrative* Problem Noted Date Resolved Date Dysuria 07/06/2021 07/08/2021 Obesity, Class I, BMI 30-34.9 01/12/2021 GI bleed 01/12/2021 01/14/2021 Acute blood loss anemia 01/12/2021 01/15/20 LLQ pain 09/05/2017 04/09/2021 Overview: Added automatically from request for surgery [id number] Malignant neoplasm of lower- inner quadrant of right breast of female, estrogen receptor positive 06/03/2017 07/06/2021 Personal history of breast cancer 12/18/2016 04/09/2021 Overview: Added automatically from request for surgery [id number] Permanent atrial fibrillation 12/26/2015 Diverticulitis of large [...] of this encounter (statuses as of 04/15/2022) [facility] History of Past illness Narrative* Problem Noted Date Resolved Date Dysuria 07/06/2021 07/08/2021 Obesity, Class I, BMI 30-34.9 01/12/2021 GI bleed 01/12/2021 01/14/2021 Acute blood loss anemia 01/12/2021 01/15/20 LLQ pain 09/05/2017 04/09/2021 Overview: Added automatically from request for surgery [id number] Malignant neoplasm of lower- inner quadrant of right breast of female, estrogen receptor positive 06/03/2017 07/06/2021 Personal history of breast cancer 12/18/2016 04/09/2021 Overview: Added automatically from request for surgery [id number] Permanent atrial fibrillation 12/26/2015 Diverticulitis of large [...] of this encounter (statuses as of 04/16/2022) [facility] History of Past illness Narrative* Problem Noted Date Resolved Date Dysuria 07/06/2021 07/08/2021 Obesity, Class I, BMI 30-34.9 01/12/2021 GI bleed 01/12/2021 01/14/2021 Acute blood loss anemia 01/12/2021 01/15/20 LLQ pain 09/05/2017 04/09/2021 Overview: Added automatically from request for surgery [id number] Malignant neoplasm of lower- inner quadrant of right breast of female, estrogen receptor positive 06/03/2017 07/06/2021 Personal history of breast cancer 12/18/2016 04/09/2021 Overview: Added automatically from request for surgery [id number] Permanent atrial fibrillation 12/26/2015 Diverticulitis of large [...] of this encounter (statuses as of 04/16/2022) [facility] History of Past illness Narrative* Problem Noted Date Resolved Date Dysuria 07/06/2021 07/08/2021 Obesity, Class I, BMI 30-34.9 01/12/2021 GI bleed 01/12/2021 01/14/2021 Acute blood loss anemia 01/12/2021 01/15/20 21 LLQ pain 09/05/2017 04/09/2021 Overview: Added automatically from request for surgery [id number] Malignant neoplasm of lower- inner quadrant of right breast of female, estrogen receptor positive 06/03/2017 07/06/2021 Personal history of breast cancer 12/18/2016 04/09/2021 Overview: Added automatically from request for surgery [id number] Permanent atrial fibrillation 12/26/2015 Diverticulitis of large [...] of this encounter (statuses as of 04/17/2022) [facility] History of Past illness Narrative* Problem Noted Date Resolved Date Dysuria 07/06/2021 07/08/2021 Obesity, Class I, BMI 30-34.9 01/12/2021 GI bleed 01/12/2021 01/14/2021 Acute blood loss anemia 01/12/2021 01/15/20 21 LLQ pain 09/05/2017 04/09/2021 Overview: Added automatically from request for surgery [id number] Malignant neoplasm of lower- inner quadrant of right breast of female, estrogen receptor positive 06/03/2017 07/06/2021 Personal history of breast cancer 12/18/2016 04/09/2021 Overview: Added automatically from request for surgery [id number] Permanent atrial fibrillation 12/26/2015 Diverticulitis of large [...] of this encounter (statuses as of 04/22/2022) [facility] History of Past illness Narrative* Problem Noted Date Resolved Date Dysuria 07/06/2021 07/08/2021 Obesity, Class I, BMI 30-34.9 01/12/2021 GI bleed 01/12/2021 01/14/2021 Acute blood loss anemia 01/12/2021 01/15/20 LLQ pain 09/05/2017 04/09/2021 Overview: Added automatically from request for surgery [id number] Malignant neoplasm of lower- inner quadrant of right breast of female, estrogen receptor positive 06/03/2017 07/06/2021 Personal history of breast cancer 12/18/2016 04/09/2021 Overview: Added automatically from request for surgery [id number] Permanent atrial fibrillation 12/26/2015 Diverticulitis of large [...] of this encounter (statuses as of 05/30/2022) [facility] History of Past illness Narrative* Problem Noted Date Resolved Date Dysuria 07/06/2021 07/08/2021 Obesity, Class I, BMI 30-34.9 01/12/2021 GI bleed 01/12/2021 01/14/2021 Acute blood loss anemia 01/12/2021 01/15/20 21 LLQ pain 09/05/2017 04/09/2021 Overview: Added automatically from request for surgery [id number] Malignant neoplasm of lower- inner quadrant of right breast of female, estrogen receptor positive 06/03/2017 07/06/2021 Personal history of breast cancer 12/18/2016 04/09/2021 Overview: Added automatically from request for surgery [id number] Permanent atrial fibrillation 12/26/2015 Diverticulitis of large [...] of this encounter (statuses as of 06/07/2022) [facility] History of Past illness Narrative* Problem Noted Date Resolved Date Dysuria 07/06/2021 07/08/2021 Obesity, Class I, BMI 30-34.9 01/12/2021 GI bleed 01/12/2021 01/14/2021 Acute blood loss anemia 01/12/2021 01/15/20 21 LLQ pain 09/05/2017 04/09/2021 Overview: Added automatically from request for surgery [id number] Malignant neoplasm of lower- inner quadrant of right breast of female, estrogen receptor positive 06/03/2017 07/06/2021 Personal history of breast cancer 12/18/2016 04/09/2021 Overview: Added automatically from request for surgery [id number] Permanent atrial fibrillation 12/26/2015 Diverticulitis of large [...] of this encounter (statuses as of 06/11/2022) [facility] History of Past illness Narrative* Problem Noted Date Resolved Date Dysuria 07/06/2021 07/08/2021 Obesity, Class I, BMI 30-34.9 01/12/2021 GI bleed 01/12/2021 01/14/2021 Acute blood loss anemia 01/12/2021 01/15/20 21 LLQ pain 09/05/2017 04/09/2021 Overview: Added automatically from request for surgery [id number] Malignant neoplasm of lower- inner quadrant of right breast of female, estrogen receptor positive 06/03/2017 07/06/2021 Personal history of breast cancer 12/18/2016 04/09/2021 Overview: Added automatically from request for surgery [id number] Permanent atrial fibrillation 12/26/2015 Diverticulitis of large [...] of this encounter (statuses as of 06/18/2022) [facility] History of Past illness Narrative* Problem Noted Date Resolved Date Dysuria 07/06/2021 07/08/2021 Obesity, Class I, BMI 30-34.9 01/12/2021 GI bleed 01/12/2021 01/14/2021 Acute blood loss anemia 01/12/2021 01/15/20 LLQ pain 09/05/2017 04/09/2021 Overview: Added automatically from request for surgery [id number] Malignant neoplasm of lower- inner quadrant of right breast of female, estrogen receptor positive 06/03/2017 07/06/2021 Personal history of breast cancer 12/18/2016 04/09/2021 Overview: Added automatically from request for surgery [id number] Permanent atrial fibrillation 12/26/2015 Diverticulitis of large [...] of this encounter (statuses as of 08/29/2022) [facility] History of Past illness Narrative* Problem Noted Date Resolved Date Dysuria 07/06/2021 07/08/2021 Obesity, Class I, BMI 30-34.9 01/12/2021 GI bleed 01/12/2021 01/14/2021 Acute blood loss anemia 01/12/2021 01/15/20 21 LLQ pain 09/05/2017 04/09/2021 Overview: Added automatically from request for surgery [id number] Malignant neoplasm of lower- inner quadrant of right breast of female, estrogen receptor positive 06/03/2017 07/06/2021 Personal history of breast cancer 12/18/2016 04/09/2021 Overview: Added automatically from request for surgery [id number] Permanent atrial fibrillation 12/26/2015 Diverticulitis of large [...] of this encounter (statuses as of 09/05/2022) [facility] History of Past illness Narrative* Problem Noted Date Resolved Date Dysuria 07/06/2021 07/08/2021 Obesity, Class I, BMI 30-34.9 01/12/2021 GI bleed 01/12/2021 01/14/2021 Acute blood loss anemia 01/12/2021 01/15/20 LLQ pain 09/05/2017 04/09/2021 Overview: Added automatically from request for surgery [id number] Malignant neoplasm of lower- inner quadrant of right breast of female, estrogen receptor positive 06/03/2017 07/06/2021 Personal history of breast cancer 12/18/2016 04/09/2021 Overview: Added automatically from request for surgery [id number] Permanent atrial fibrillation 12/26/2015 Diverticulitis of large [...] of this encounter (statuses as of 09/20/2022) [facility]04-22[facility]2022 History of Past illness Narrative* Problem Noted Date Diagnosed Date Resolved Date Dysuria 07/06/2021 07/08/2021 Obesity, Class I, BMI 30-34.9 01/12/2021 04/09/2021 GI bleed 01/12/2021 01/14/2021 Acute blood loss anemia 01/12/2021 10/3 03/2020 LLQ pain 09/05/2017 04/09/2021 Overview: Added automatically from request for surgery [id number] Malignant neoplasm of lower- inner quadrant of right breast of female, estrogen receptor positive 06/03/2017 07/06/2021 Personal history of breast cancer 12/18/2016 04/09/2021 Overview: Added automatically from request for surgery [id number] Permanent atrial fibrillation 12/26/2015 07/01/2018 Diverticulitis of [...] of this encounter (statuses as of 09/25/2022) [facility]-22-20[facility] History of Past illness Narrative* Problem Noted Date Diagnosed Date Resolved Date Dysuria 07/06/2021 07/08/2021 Obesity, Class I, BMI 30-34.9 01/12/2021 04/09/2021 GI bleed 01/12/2021 01/14/2021 Acute blood loss anemia 01/12/202112/17 LLQ pain 09/05/2017 04/09/2021 Overview: Added automatically from request for surgery [id number] Malignant neoplasm of lower- inner quadrant of right breast of female, estrogen receptor positive 06/03/2017 07/06/2021 Personal history of breast cancer 12/18/2016 04/09/2021 Overview: Added automatically from request for surgery [id number] Permanent atrial fibrillation 12/26/2015 07/01/2018 Diverticulitis of [...] of this encounter (statuses as of 10/23/2022) [facility]20[facility] History of Past illness Narrative* Problem Noted Date Diagnosed Date Resolved Date Dysuria 07/06/2021 07/08/2021 Obesity, Class I, BMI 30-34.9 01/12/2021 04/09/2021 GI bleed 01/12/2021 01/14/2021 Acute blood loss anemia 01/12/202112/17 LLQ pain 09/05/2017 04/09/2021 Overview: Added automatically from request for surgery [id number] Malignant neoplasm of lower- inner quadrant of right breast of female, estrogen receptor positive 06/03/2017 07/06/2021 Personal history of breast cancer 12/18/2016 04/09/2021 Overview: Added automatically from request for surgery [id number] Permanent atrial fibrillation 12/26/2015 07/01/2018 Diverticulitis of [...] of this encounter (statuses as of 11/15/2022) [facility] History of Past illness Narrative* Problem Noted Date Diagnosed Date Resolved Date Dysuria 07/06/2021 07/08/2021 Obesity, Class I, BMI 30-34.9 01/12/2021 04/09/2021 GI bleed 01/12/2021 01/14/2021 Acute blood loss anemia 01/12/202112/17 LLQ pain 09/05/2017 04/09/2021 Overview: Added automatically from request for surgery [id number] Malignant neoplasm of lower- inner quadrant of right breast of female, estrogen receptor positive 06/03/2017 07/06/2021 Personal history of breast cancer 12/18/2016 04/09/2021 Overview: Added automatically from request for surgery [id number] Permanent atrial fibrillation 12/26/2015 07/01/2018 Diverticulitis of [...] of this encounter (statuses as of 11/26/2022) [facility]-22[facility]20[facility] History of Past illness Narrative* Problem Noted Date Diagnosed Date Resolved Date Dysuria 07/06/2021 07/08/2021 Obesity, Class I, BMI 30-34.9 01/12/2021 04/09/2021 GI bleed 01/12/2021 01/14/2021 Acute blood loss anemia 01/12/202112/17 LLQ pain 09/05/2017 04/09/2021 Overview: Added automatically from request for surgery [id number] Malignant neoplasm of lower- inner quadrant of right breast of female, estrogen receptor positive 06/03/2017 07/06/2021 Personal history of breast cancer 12/18/2016 04/09/2021 Overview: Added automatically from request for surgery [id number] Permanent atrial fibrillation 12/26/2015 07/01/2018 Diverticulitis of [...] of this encounter (statuses as of 11/27/2022) [facility] History of Past illness Narrative* Problem Noted Date Diagnosed Date Resolved Date Dysuria 07/06/2021 07/08/2021 Obesity, Class I, BMI 30-34.9 01/12/2021 04/09/2021 GI bleed 01/12/2021 01/14/2021 Acute blood loss anemia 01/12/202112/17 LLQ pain 09/05/2017 04/09/2021 Overview: Added automatically from request for surgery [id number] Malignant neoplasm of lower- inner quadrant of right breast of female, estrogen receptor positive 06/03/2017 07/06/2021 Personal history of breast cancer 12/18/2016 04/09/2021 Overview: Added automatically from request for surgery [id number] Permanent atrial fibrillation 12/26/2015 07/01/2018 Diverticulitis of [...] of this encounter (statuses as of 12/14/2022) [facility] History of Past illness Narrative* Problem Noted Date Diagnosed Date Resolved Date Dysuria 07/06/2021 07/08/2021 Obesity, Class I, BMI 30-34.9 01/12/2021 04/09/2021 GI bleed 01/12/2021 01/14/2021 Acute blood loss anemia 01/12/202112/17 LLQ pain 09/05/2017 04/09/2021 Overview: Added automatically from request for surgery [id number] Malignant neoplasm of lower- inner quadrant of right breast of female, estrogen receptor positive (HCC) 06/03/2017 07/06/2021 Personal history of breast cancer 12/18/2016 04/09/2021 Overview: Added automatically from request for surgery [id number] Permanent atrial fibrillation 12/26/2015 07/01/2018 Diverticulitis of [...] of this encounter (statuses as of 12/18/2022) [facility] History of Past illness Narrative* Problem Noted Date Diagnosed Date Resolved Date Dysuria 07/06/2021 07/08/2021 Obesity, Class I, BMI 30-34.9 01/12/2021 04/09/2021 GI bleed 01/12/2021 01/14/2021 Acute blood loss anemia 01/12/2021 10/03/2020 LLQ pain 09/05/2017 04/09/2021 Overview: Added automatically from request for surgery [id number] Malignant neoplasm of lower- inner quadrant of right breast of female, estrogen receptor positive (HCC) 06/03/2017 07/06/2021 Personal history of breast cancer 12/18/2016 04/09/2021 Overview: Added automatically from request for surgery [id number] Permanent atrial fibrillation 12/26/2015 07/01/2018 Diverticulitis of [...] of this encounter (statuses as of 12/21/2022) [facility] History of Past illness Narrative* Problem Noted Date Diagnosed Date Resolved Date Dysuria 07/06/2021 07/08/2021 Obesity, Class I, BMI 30-34.9 01/12/2021 04/09/2021 GI bleed 01/12/2021 01/14/2021 Acute blood loss anemia 01/12/2021 10/03/2020 LLQ pain 09/05/2017 04/09/2021 Overview: Added automatically from request for surgery [id number] Malignant neoplasm of lower- inner quadrant of right breast of female, estrogen receptor positive (HCC) 06/03/2017 07/06/2021 Personal history of breast cancer 12/18/2016 04/09/2021 Overview: Added automatically from request for surgery [id number] Permanent atrial fibrillation 12/26/2015 07/01/2018 Diverticulitis of [...] of this encounter (statuses as of 01/14/2023) [facility]-22-20[facility] History of Past illness Narrative* Problem Noted Date Diagnosed Date Resolved Date Dysuria 07/06/2021 07/08/2021 Obesity, Class I, BMI 30-34.9 01/12/2021 04/09/2021 GI bleed 01/12/2021 01/14/2021 Acute blood loss anemia 01/12/202112/17 LLQ pain 09/05/2017 04/09/2021 Overview: Added automatically from request for surgery [id number] Malignant neoplasm of lower- inner quadrant of right breast of female, estrogen receptor positive 06/03/2017 07/06/2021 Personal history of breast cancer 12/18/2016 04/09/2021 Overview: Added automatically from request for surgery [id number] Permanent atrial fibrillation 12/26/2015 07/01/2018 Diverticulitis of [...] of this encounter (statuses as of 01/19/2023) [facility]20[facility] History of Past illness Narrative* Problem Noted Date Diagnosed Date Resolved Date Dysuria 07/06/2021 07/08/2021 Obesity, Class I, BMI 30-34.9 01/12/2021 04/09/2021 GI bleed 01/12/2021 01/14/2021 Acute blood loss anemia 01/12/2021 1003/2020 LLQ pain 09/05/2017 04/09/2021 Overview: Added automatically from request for surgery [id number] Malignant neoplasm of lower- inner quadrant of right breast of female, estrogen receptor positive 06/03/2017 07/06/2021 Personal history of breast cancer 12/18/2016 04/09/2021 Overview: Added automatically from request for surgery [id number] Permanent atrial fibrillation 12/26/2015 07/01/2018 Diverticulitis of [...] of this encounter (statuses as of 01/19/2023) [facility]22[facility]20[facility] History of Past illness Narrative* Problem Noted Date Diagnosed Date Resolved Date Dysuria 07/06/2021 07/08/2021 Obesity, Class I, BMI 30-34.9 01/12/2021 04/09/2021 GI bleed 01/12/2021 01/14/2021 Acute blood loss anemia 01/12/202112/17 LLQ pain 09/05/2017 04/09/2021 Overview: Added automatically from request for surgery [id number] Malignant neoplasm of lower- inner quadrant of right breast of female, estrogen receptor positive (HCC) 06/03/2017 07/06/2021 Personal history of breast cancer 12/18/2016 04/09/2021 Overview: Added automatically from request for surgery [id number] Permanent atrial fibrillation 12/26/2015 07/01/2018 Diverticulitis of [...] of this encounter (statuses as of 02/12/2023) [facility]20[facility] History of Past illness Narrative* Problem Noted Date Diagnosed Date Resolved Date Dysuria 07/06/2021 07/08/2021 Obesity, Class I, BMI 30-34.9 01/12/2021 04/09/2021 GI bleed 01/12/2021 01/14/2021 Acute blood loss anemia 01/12/202112/17 LLQ pain 09/05/2017 04/09/2021 Overview: Added automatically from request for surgery [id number] Malignant neoplasm of lower- inner quadrant of right breast of female, estrogen receptor positive (HCC) 06/03/2017 07/06/2021 Personal history of breast cancer 12/18/2016 04/09/2021 Overview: Added automatically from request for surgery [id number] Permanent atrial fibrillation 12/26/2015 07/01/2018 Diverticulitis of [...] of this encounter (statuses as of 04/25/2023) [facility]04-22[facility]20[facility] History of Past illness Narrative* Problem Noted Date Diagnosed Date Resolved Date Dysuria 07/06/2021 07/08/2021 Obesity, Class I, BMI 30-34.9 01/12/2021 04/09/2021 GI bleed 01/12/2021 01/14/2021 Acute blood loss anemia 01/12/2021 10/03/2020 LLQ pain 09/05/2017 04/09/2021 Overview: Added automatically from request for surgery [id number] Malignant neoplasm of lower- inner quadrant of right breast of female, estrogen receptor positive (HCC) 06/03/2017 07/06/2021 Personal history of breast cancer 12/18/2016 04/09/2021 Overview: Added automatically from request for surgery [id number] Permanent atrial fibrillation 12/26/2015 07/01/2018 Diverticulitis of [...] of this encounter (statuses as of 04/30/2023) [facility]20[facility] History of Past illness Narrative* Problem Noted Date Diagnosed Date Resolved Date Dysuria 07/06/2021 07/08/2021 Obesity, Class I, BMI 30-34.9 01/12/2021 04/09/2021 GI bleed 01/12/2021 01/14/2021 Acute blood loss anemia 01/12/202112/17 LLQ pain 09/05/2017 04/09/2021 Overview: Added automatically from request for surgery [id number] Malignant neoplasm of lower- inner quadrant of right breast of female, estrogen receptor positive 06/03/2017 07/06/2021 Personal history of breast cancer 12/18/2016 04/09/2021 Overview: Added automatically from request for surgery [id number] Permanent atrial fibrillation 12/26/2015 07/01/2018 Diverticulitis of [...] of this encounter (statuses as of 05/19/2023) [facility]20[facility] History of Past illness Narrative* Problem Noted Date Diagnosed Date Resolved Date Dysuria 07/06/2021 07/08/2021 Obesity, Class I, BMI 30-34.9 01/12/2021 04/09/2021 GI bleed 01/12/2021 01/14/2021 Acute blood loss anemia 01/12/202112/17 LLQ pain 09/05/2017 04/09/2021 Overview: Added automatically from request for surgery [id number] Malignant neoplasm of lower- inner quadrant of right breast of female, estrogen receptor positive 06/03/2017 07/06/2021 Personal history of breast cancer 12/18/2016 04/09/2021 Overview: Added automatically from request for surgery [id number] Permanent atrial fibrillation 12/26/2015 07/01/2018 Diverticulitis of [...] of this encounter (statuses as of 06/07/2023) [facility]22[facility]20[facility] History of Past illness Narrative* Problem Noted Date Diagnosed Date Resolved Date Dysuria 07/06/2021 07/08/2021 Obesity, Class I, BMI 30-34.9 01/12/2021 04/09/2021 GI bleed 01/12/2021 01/14/2021 Acute blood loss anemia 01/12/2021 10/03/2020 LLQ pain 09/05/2017 04/09/2021 Overview: Added automatically from request for surgery [id number] Malignant neoplasm of lower- inner quadrant of right breast of female, estrogen receptor positive 06/03/2017 07/06/2021 Personal history of breast cancer 12/18/2016 04/09/2021 Overview: Added automatically from request for surgery [id number] Permanent atrial fibrillation 12/26/2015 07/01/2018 Diverticulitis of [...] of this encounter (statuses as of 06/10/2023) [facility]20[facility] History of Past illness Narrative* Problem Noted Date Diagnosed Date Resolved Date Dysuria 07/06/2021 07/08/2021 Obesity, Class I, BMI 30-34.9 01/12/2021 04/09/2021 GI bleed 01/12/2021 01/14/2021 Acute blood loss anemia 01/12/2021/03/2020 LLQ pain 09/05/2017 04/09/2021 Overview: Added automatically from request for surgery [id number] Malignant neoplasm of lower- inner quadrant of right breast of female, estrogen receptor positive 06/03/2017 07/06/2021 Personal history of breast cancer 12/18/2016 04/09/2021 Overview: Added automatically from request for surgery [id number] Permanent atrial fibrillation 12/26/2015 07/01/2018 Diverticulitis of [...] of this encounter (statuses as of 06/17/2023) [facility]22[facility]20[facility] History of Past illness Narrative* Problem Noted Date Diagnosed Date Resolved Date Dysuria 07/06/2021 07/08/2021 Obesity, Class I, BMI 30-34.9 01/12/2021 04/09/2021 GI bleed 01/12/2021 01/14/2021 Acute blood loss anemia 01/12/202112/17 LLQ pain 09/05/2017 04/09/2021 Overview: Added automatically from request for surgery [id number] Malignant neoplasm of lower- inner quadrant of right breast of female, estrogen receptor positive 06/03/2017 07/06/2021 Personal history of breast cancer 12/18/2016 04/09/2021 Overview: Added automatically from request for surgery [id number] Permanent atrial fibrillation 12/26/2015 07/01/2018 Diverticulitis of [...] of this encounter (statuses as of 06/18/2023) [facility]22[facility]20[facility] History of Past illness Narrative* Problem Noted Date Diagnosed Date Resolved Date Dysuria 07/06/2021 07/08/2021 Obesity, Class I, BMI 30-34.9 01/12/2021 04/09/2021 GI bleed 01/12/2021 01/14/2021 Acute blood loss anemia 01/12/202112/17 LLQ pain 09/05/2017 04/09/2021 Overview: Added automatically from request for surgery [id number] Malignant neoplasm of lower- inner quadrant of right breast of female, estrogen receptor positive 06/03/2017 07/06/2021 Personal history of breast cancer 12/18/2016 04/09/2021 Overview: Added automatically from request for surgery [id number] Permanent atrial fibrillation 12/26/2015 07/01/2018 Diverticulitis of [...] of this encounter (statuses as of 06/19/2023) [facility] History of Past illness Narrative* Problem Noted Date Diagnosed Date Resolved Date Dysuria 07/06/2021 07/08/2021 Obesity, Class I, BMI 30-34.9 01/12/2021 04/09/2021 GI bleed 01/12/2021 01/14/2021 Acute blood loss anemia 01/12/202112/17 LLQ pain 09/05/2017 04/09/2021 Overview: Added automatically from request for surgery [id number] Malignant neoplasm of lower- inner quadrant of right breast of female, estrogen receptor positive 06/03/2017 07/06/2021 Personal history of breast cancer 12/18/2016 04/09/2021 Overview: Added automatically from request for surgery [id number] Permanent atrial fibrillation 12/26/2015 07/01/2018 Diverticulitis of [...] of this encounter (statuses as of 07/01/2023) [facility] History of Past illness Narrative* Problem Noted Date Diagnosed Date Resolved Date Dysuria 07/06/2021 07/08/2021 Obesity, Class I, BMI 30-34.9 01/12/2021 04/09/2021 GI bleed 01/12/2021 01/14/2021 Acute blood loss anemia 01/12/2021/03/2020 LLQ pain 09/05/2017 04/09/2021 Overview: Added automatically from request for surgery [id number] Malignant neoplasm of lower- inner quadrant of right breast of female, estrogen receptor positive 06/03/2017 07/06/2021 Personal history of breast cancer 12/18/2016 04/09/2021 Overview: Added automatically from request for surgery [id number] Permanent atrial fibrillation 12/26/2015 07/01/2018 Diverticulitis of [...] of this encounter (statuses as of 07/02/2023) [facility] History of Past illness Narrative* Problem Noted Date Diagnosed Date Resolved Date Dysuria 07/06/2021 07/08/2021 Obesity, Class I, BMI 30-34.9 01/12/2021 04/09/2021 GI bleed 01/12/2021 01/14/2021 Acute blood loss anemia 01/12/202112/17 LLQ pain 09/05/2017 04/09/2021 Overview: Added automatically from request for surgery [id number] Malignant neoplasm of lower- inner quadrant of right breast of female, estrogen receptor positive 06/03/2017 07/06/2021 Personal history of breast cancer 12/18/2016 04/09/2021 Overview: Added automatically from request for surgery [id number] Permanent atrial fibrillation 12/26/2015 07/01/2018 Diverticulitis of [...] of this encounter (statuses as of 07/04/2023) [facility]04-22-2022 Miscellaneous Notes* Telephone Encounter - Coreen Concepcion MD - 07/06/2021 12:10 PM EDT Had spoken to Dr. Turk regarding her plan- ERCP with prophylactic sphincterotomy and referral for cholecystectomy at [facility]. Unfortunately she will likely become obstructed regardless of ERCP because of this 3.3 cm stone. Called patient's daughter (patient did not answer), patient is currently in Emergency department with worsening pain, fevers. Will likely be admitted, high concern for biliary obstruction. documented in this encounterSelect [facility] History of Present illness Narrative* Johnny Turk [...] had black tarry stools and [facility] for post polypectomy bleed. At the time [...] opinions from the recent CT scan at [facility] versus the prior scan, I elected to obtain an ultrasound and repeat laboratory studies. The CT scan from [facility] was supposed to be loaded into [...] 99 74 - 99 mg/dL Final The [place] [employer] (ADA) provides guidance for cutoff [...] Standards of Medical Care in Diabetes 2016, [place] [employer]. Diabetes Care. 2016.39(Suppl 1). BUN [...] addended to a previously final verified report. [place]% 07/05/2021 14.0 % Final This is an addended report. These results have been addended to a previously final verified report. Abs [place] 07/05/2021 1.22 (A) <0.87 k/uL Final This [...] Referred by noted on Friday to her prescriptionist. She question whether the patient truly had [...] mouth once daily. Taking 1000 glucosamine/msm/chondroitin A (SMVYGVHZRAH-MHAMAO-SJE ORAL) Take 1 capsule by mouth once [...] (98.6 F), height 167.6 cm (5' 6), .8 kg (176 lb), SpO2 100 %. Body [...] to have her CT scan images from [facility] loaded in the [facility] system and compare this to the [...] needed. Johnny Turk MD documented in this encounter[facility] Miscellaneous Notes* Telephone Encounter - Bernie Aguilar LPN - 07/05/2021 4:38 PM EDT Eloisa notified, verbalized understanding. Eloisa states that patient will be admitted into [facility] tomorrow. Just an FYI * Telephone Encounter - Ambar Negrete APRN.DATA STORAGE SPECIALIST - 07/05/2021 3:35 PM EDT PCP Galina [...] [facility]. Reports pt [facility] [...] term for pain? Pt uses [facility] in [place]. Please call daughter Eloisa to notify her. Eloisa also asking for message to go to Dr Turk since pt was seen by him today. Aliyah Oliva LPN documented in this encounterSelect [facility] History of Present illness Narrative* Alma Ta APRN.SENIOR FIREWALL ENGINEER - 07/03/2021 12:15 PM EDT CC: Patient [...] benign mass on liver PMR (polymyalgia rheumatica) ([facility]) 2012 Pure hypercholesterolemia Snoring Squamous cell [...] mouth once daily. Taking 1000 glucosamine/msm/chondroitin A (EYKHSRNUYEL-CNZQZD-VFF ORAL) Take 1 capsule by mouth once [...] tenderness DATA REVIEWED: Outside chart from [facility] ER reviewed. ASSESSMENT/PLAN: 1. Dysuria - ICD9: 788.1, ICD10: R30.0 (primary diagnosis) Chronic. Urine cultures negative for UTI and no improvement with antibiotics. Differentials includeyeast infection, atrophic vaginitis, interstitial cystitis Start Diflucan for possible yeast infection Follow-up with REHEAT FURNACE OPERATOR as scheduled next week and discuss [...] plan. Alma Ta APRN.CNP documented in this encounterSelect [facility] Miscellaneous Notes* Telephone Encounter - Madonna Dickson LPN - 07/03/2021 11:[address] [facility] medical records to fax ER visit from 07/02/21 . * Telephone Encounter - Madonna Dickson LPN - 07/03/2021 8:59 AM EDT Patient called wants to talk to Dr Turk, was in [facility] ER last night 07/02/21, [facility] wanted to do surgery on gallbladder, patient declined, states wants to f/up with Dr Turk before proceeding. Please advise. 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 documented in this encounterSelect [facility] Miscellaneous Notes* Telephone Encounter - Jerrica Rothman RPh - 06/20/2021 4:55 PM EDT Patient was due to test INR today will continue to monitor for results. Jerrica Rothman PharmD documented in this encounterSelect [facility] Miscellaneous Notes* Telephone Encounter - Page Palmer - 06/19/2021 8:28 AM EDT Patient given results and verbalized understanding of instructions given. Page Palmer * Telephone Encounter - Basilia Cueto APRN.[facility] - 06/19/2021 6:54 AM EDT Please inform patient that urine culture did not show any growth of bacteria requiring treatment. She may stop macrobid. Recommend patient follow up with Dr. Arzola as discussed at visit. Basilia Cueto APRN.CNP documented in this encounterSelect [facility] History of Present illness Narrative* Aby Bruner DO - 06/05/2021 11:00 AM EDT This office note has been dictated. Aby Bruner DO documented in this encounterSelect [facility] History of Present illness Narrative* RT Sahra(R) [...] 17, 2021 5:46 PM documented in this encounterSelect [facility] Miscellaneous Notes* Telephone Encounter - Galina Solorzano [...] Are you able to send refills to [facility]? Please advise patient. documented in this encounterSelect [facility] - [place]10-31-2021 NoteHNO ID: [id number] Author: Johnny Turk MD Service: General Surgery [...] VTE Prophylaxis/Anticoagulants 01/12/211999 activity - mobilize patient ([place], [place]) VTE Prophylaxis: VTE prophylaxis appropriate SIGNATURE: Johnny Turk MD PATIENT NAME: Christian Landrum DATE: January 14, 2021 TIME: 12:07 PM[facility] [id number] NoteHNO ID: [id number] Author: Wendy Bonilla DO Service: Hospital Medicine Author Type: Physician Type: Progress Notes Filed: 01/13/2021 4:03 PM Note Text: DEPARTMENT OF HOSPITAL MEDICINE PROGRESS NOTE SERVICE DATE: 01/13/2021 SERVICE TIME: 3:50 PM Hospital Medicine/Primary Attending: Wendy Bonilla DO NIGHT AND WEEKEND COVERAGE: HOPE COVERAGE: Days: [phone], please page attending physician. Nights: [phone], please page [facility] Night coverage pager [phone]. Subjective INTERVAL HPI: feels well today. No [...] fatty liver in the past. Also on care home methotrexate. Noted positive Hepatitis B core ab I ordered the rest of the hepatitis serologies her Thermal Surfacing Machine Operator recommended and she will need to f/u with GI outpatient Endometrial thickening on ultrasound Obtain transvaginal US If thickened endometrium then she needs to see (more content not included)... [facility] [id number] NoteHNO ID: [id number] Author: ALICIA Ramires Service: Radiology Author Type: Clinical Behavioral Sciences Department Chair Type: Progress Notes Filed: 01/12/2021 4:19 PM [...] Landrum DATE: January 12, 2021 TIME: 4:06 [id number] History of Past illness Narrative* Problem Noted Date Resolved Date Obesity, Class I, BMI 30-34.9 01/12/2021 GI bleed 01/12/2021 01/14/2021 Acute blood loss anemia 01/12/2021 01/15/20 LLQ pain 09/05/2017 04/09/2021 Overview: Added automatically from request for surgery [id number] Personal history of breast cancer 12/18/2016 04/09/2021 Overview: Added automatically from request for surgery [id number] Permanent atrial fibrillation 12/26/2015 Diverticulitis of large [...] of this encounter (statuses as of 06/05/2021) [facility] [place] History of Past illness Narrative* Problem Noted Date Resolved Date Obesity, Class I, BMI 30-34.9 01/12/2021 GI bleed 01/12/2021 01/14/2021 Acute blood loss anemia 01/12/2021 01/15/20 LLQ pain 09/05/2017 04/09/2021 Overview: Added automatically from request for surgery [id number] Personal history of breast cancer 12/18/2016 04/09/2021 Overview: Added automatically from request for surgery [id number] Permanent atrial fibrillation 12/26/2015 Diverticulitis of large [...] of this encounter (statuses as of 06/19/2021) [facility] [place] History of Past illness Narrative* Problem Noted Date Resolved Date Obesity, Class I, BMI 30-34.9 01/12/2021 GI bleed 01/12/2021 01/14/2021 Acute blood loss anemia 01/12/2021 01/15/20 LLQ pain 09/05/2017 04/09/2021 Overview: Added automatically from request for surgery [id number] Personal history of breast cancer 12/18/2016 04/09/2021 Overview: Added automatically from request for surgery [id number] Permanent atrial fibrillation 12/26/2015 Diverticulitis of large [...] of this encounter (statuses as of 06/22/2021) [facility] [place] History of Past illness Narrative* Problem Noted Date Resolved Date Obesity, Class I, BMI 30-34.9 01/12/2021 GI bleed 01/12/2021 01/14/2021 Acute blood loss anemia 01/12/2021 01/15/20 21 LLQ pain 09/05/2017 04/09/2021 Overview: Added automatically from request for surgery [id number] Personal history of breast cancer 12/18/2016 04/09/2021 Overview: Added automatically from request for surgery [id number] Permanent atrial fibrillation 12/26/2015 Diverticulitis of large [...] of this encounter (statuses as of 06/26/2021) [facility] [place] History of Past illness Narrative* Problem Noted Date Resolved Date Obesity, Class I, BMI 30-34.9 01/12/2021 GI bleed 01/12/2021 01/14/2021 Acute blood loss anemia 01/12/2021 01/15/20 LLQ pain 09/05/2017 04/09/2021 Overview: Added automatically from request for surgery [id number] Personal history of breast cancer 12/18/2016 04/09/2021 Overview: Added automatically from request for surgery [id number] Permanent atrial fibrillation 12/26/2015 Diverticulitis of large [...] of this encounter (statuses as of 07/03/2021) [facility] [place] History of Past illness Narrative* Problem Noted Date Resolved Date Obesity, Class I, BMI 30-34.9 01/12/2021 GI bleed 01/12/2021 01/14/2021 Acute blood loss anemia 01/12/2021 01/15/20 21 LLQ pain 09/05/2017 04/09/2021 Overview: Added automatically from request for surgery [id number] Personal history of breast cancer 12/18/2016 04/09/2021 Overview: Added automatically from request for surgery [id number] Permanent atrial fibrillation 12/26/2015 Diverticulitis of large [...] of this encounter (statuses as of 07/05/2021) [facility] [place] History of Past illness Narrative* Problem Noted Date Resolved Date Obesity, Class I, BMI 30-34.9 01/12/2021 GI bleed 01/12/2021 01/14/2021 Acute blood loss anemia 01/12/2021 01/15/20 LLQ pain 09/05/2017 04/09/2021 Overview: Added automatically from request for surgery [id number] Personal history of breast cancer 12/18/2016 04/09/2021 Overview: Added automatically from request for surgery [id number] Permanent atrial fibrillation 12/26/2015 Diverticulitis of large [...] of this encounter (statuses as of 07/05/2021) [facility] [place] History of Past illness Narrative* Problem Noted Date Resolved Date Obesity, Class I, BMI 30-34.9 01/12/2021 GI bleed 01/12/2021 01/14/2021 Acute blood loss anemia 01/12/2021 01/15/20 21 LLQ pain 09/05/2017 04/09/2021 Overview: Added automatically from request for surgery [id number] Personal history of breast cancer 12/18/2016 04/09/2021 Overview: Added automatically from request for surgery [id number] Permanent atrial fibrillation 12/26/2015 Diverticulitis of large [...] of this encounter (statuses as of 07/06/2021) [facility] [place]10-[facility]21 NoteHNO ID: [id number] Author: ANIKET Martin Service: Radiology Author Type: Clinical Behavioral Sciences Department Chair Type: Progress Notes Filed: 01/10/2021 10:31 AM [...] POST EXAM PIV STATUS: Discontinued PROCEDURE TYPE: [place] Stress: 12.1mCi [id number] was administered IV for Rest Imaging at 9:05 by ANIKET Martin. 31.2 mCi [id number] was administered IV for Stress Imaging at 10:02 by ANIKET Martin. PATIENT DISCHARGED TO: Ambulatory patient, left [place] department area. A Diagnostic radioactive procedure has taken place, with no further precautions necessary other than routine body substance precautions. More information regarding radiation safety can be found using this link: [email or web address] SIGNATURE: ANIKET Martin PATIENT NAME: Christian Landrum DATE: January 10, 2021 TIME: 10:30 AM PAGER/CONTACT #:[facility] [id number] History of Present illness Narrative* Gladis Beltran [...] 27, 2020 4:17 PM [facility] [place] History of Present illness Narrative* Gladis Beltran)Karri [...] 05, 2020 2:54 PM [facility] Diagnosis Venous (peripheral) insufficiency- Primary Unspecified venous (peripheral) insufficiency documented in this encounter [facility] note* Diagnosis FPC (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 anticoagulants Long-term (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 anticoagulants Paroxysmal atrial fibrillation (HCC) Atrial fibrillation documented in this encounter [facility] note* Diagnosis Malignant neoplasm of lower-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, estrogen receptor positive (HCC)- Primary documented in this encounter [facility] noteNo assessment information availableWKindred [facility] Work Phone: Evaluation note* Diagnosis Dysuria- Primary Right upper quadrant abdominal pain Abdominal pain, right upper quadrant Chronic anticoagulation Long-term (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 anticoagulants documented in this encounter [facility]* Diagnosis Polymyalgia rheumatica (HCC)- Primary Polymyalgia rheumatica documented in this encounter [facility]* Diagnosis Calculus of gallbladder without cholecystitis without obstruction- Primary Calculus of gallbladder without mention of cholecystitis or obstruction Secondary biliary cirrhosis (HCC) Biliary cirrhosis documented in this encounter [facility]* Diagnosis Malignant neoplasm of lower-inner quadrant of right breast of female, estrogen receptor positive (HCC)- Primary documented in this encounter [facility]* Diagnosis supervisor 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 Long-term (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 anticoagulants Paroxysmal atrial fibrillation (HCC) Atrial fibrillation documented in this encounter [facility]* Diagnosis History of recent hospitalization- Primary Personal history of unspecified disease Dysuria Recurrent UTI Urinary tract infection, site not specified Cirrhosis of liver with ascites, unspecified hepatic cirrhosis type (HCC) Biliary colic Calculus of gallbladder without mention of cholecystitis or obstruction [facility] Diagnosis Dysuria- Primary [facility]* Diagnosis FPC (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 anticoagulants Long-term (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 anticoagulants Paroxysmal atrial fibrillation (HCC) Atrial fibrillation [facility]* Diagnosis Acute cystitis without hematuria- Primary Acute cystitis PMB (postmenopausal bleeding) Postmenopausal bleeding Endometrial thickening on ultrasound documented [facility] this encounter [facility]* Diagnosis FPC (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 anticoagulants Long-term (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 anticoagulants Paroxysmal atrial fibrillation (HCC) Atrial fibrillation documented [facility] this encounter [facility]* Diagnosis Onset Date Resolution Status Endometrial thickening on ultrasound acute PMB (postmenopausal bleeding) acute History of diverticulitis of colon [facility] Work Phone: Evaluation note* Diagnosis PMB (postmenopausal bleeding)- Primary Postmenopausal bleeding Endometrial thickening on ultrasound documented [facility]* Diagnosis Old laceration of cervix uteri- Primary Old laceration of cervix Abnormal uterine bleeding (AUB) [facility] Diagnosis Recurrent UTI- Primary Urinary tract infection, site not specified Mixed stress and urge urinary incontinence Mixed incontinence urge and stress (male)(female) Old laceration of cervix uteri Old laceration of cervix [facility]* Diagnosis FPC (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 anticoagulants Long-term (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 anticoagulants Paroxysmal atrial fibrillation (HCC) Atrial fibrillation [facility]* Diagnosis Paroxysmal atrial fibrillation (HCC)- Primary Atrial fibrillation Rheumatic mitral regurgitation Rheumatic mitral insufficiency Essential hypertension Unspecified essential hypertension Mixed hyperlipidemia Hyperglycemia Other abnormal glucose PAF (paroxysmal atrial fibrillation) (HCC) Atrial fibrillation Shortness of breath SVT (supraventricular tachycardia) (HCC) Other specified cardiac dysrhythmias [facility]* Diagnosis Old laceration of cervix uteri- Primary Old laceration of cervix [facility] Diagnosis Malignant neoplasm of lower-inner [...] and stress (male)(female) [facility]* Diagnosis Recurrent UTI Urinary tract infection, [...] [facility] Diagnosis supervisor 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 Long-term (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 anticoagulants Paroxysmal atrial fibrillation (HCC) Atrial fibrillation [facility] Diagnosis Onset Date Resolution Status History of diverticulitis of colon chronic Endometrial thickening on ultrasound resolved PMB (postmenopausal bleeding) resolved [facility] Work Phone: Evaluation note* Diagnosis BRBPR (bright red blood per rectum)- Primary Hemorrhage of rectum and anus FPC (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 anticoagulants Long-term (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 anticoagulants Paroxysmal atrial fibrillation (HCC) Atrial fibrillation [facility] Diagnosis FPC (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 anticoagulants Long-term (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 anticoagulants Paroxysmal atrial fibrillation (HCC) Atrial fibrillation [facility]* Diagnosis Malignant neoplasm of lower-inner quadrant of right breast of female, estrogen receptor positive (HCC)- Primary [facility]* Diagnosis Malignant neoplasm of lower-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 coli infection Personal history of other infectious and parasitic disease Vaginal atrophy Postmenopausal atrophic vaginitis [facility]* Diagnosis Primary osteoarthritis of both knees- Primary Primary localized osteoarthrosis, lower leg Chronic pain of right knee [facility]* Diagnosis Anemia, unspecified type- Primary [facility]* Diagnosis Malignant neoplasm of lower-inner quadrant of right breast of female, estrogen receptor positive (HCC)- Primary [facility]* Diagnosis Iron deficiency anemia due [...] specified intestinal malabsorption [facility]* Diagnosis 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 Other specified intestinal malabsorption [facility] Diagnosis 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 (chronic) Malignant neoplasm of lower-inner quadrant of right breast of female, estrogen receptor positive (HCC) [facility]* Diagnosis 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 Other specified intestinal malabsorption [facility]* Diagnosis Chest pain, unspecified type- Primary Paroxysmal atrial fibrillation (HCC) Atrial fibrillation Rheumatic mitral regurgitation Rheumatic mitral insufficiency Essential hypertension Unspecified essential hypertension Mixed hyperlipidemia Obstructive sleep apnea syndrome Obstructive sleep apnea (adult) (pediatric) Shortness of breath [facility]* Diagnosis Personal history of breast cancer- Primary Personal history of malignant neoplasm of breast Rib pain on right side Chest pain, unspecified [facility]* Diagnosis Personal history of breast cancer- Primary Personal history of malignant neoplasm of breast [facility] Diagnosis Personal history of breast cancer- Primary Personal history of malignant neoplasm of breast 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 blood loss (chronic) [facility]* Diagnosis Paroxysmal atrial fibrillation (HCC)- Primary Atrial fibrillation Rheumatic mitral regurgitation Rheumatic mitral insufficiency Essential hypertension Unspecified essential hypertension Mixed hyperlipidemia Obstructive sleep apnea syndrome Obstructive sleep apnea (adult) (pediatric) Shortness of breath PAF (paroxysmal atrial fibrillation) (HCC) Atrial fibrillation SVT (supraventricular tachycardia) (HCC) Other specified cardiac dysrhythmias [facility]* Diagnosis Encounter for care related to vascular access port- Primary Fitting and adjustment of vascular catheter [facility] Diagnosis Pain in right wrist- Primary Pain in joint, forearm Primary osteoarthritis of both knees Primary localized osteoarthrosis, lower leg CMC arthritis Unspecified arthropathy, hand [facility]* Diagnosis Essential hypertension- Primary Unspecified essential hypertension Paroxysmal atrial fibrillation (HCC) Atrial fibrillation [facility]* Diagnosis Iron deficiency anemia due to [...] receptor positive (HCC) [facility]* Diagnosis Personal history of breast cancer Personal history of malignant neoplasm of breast Rib pain on right side Chest pain, unspecified [facility]* Diagnosis Pain in right wrist Pain in joint, forearm [facility]* Diagnosis Personal history of breast cancer- Primary Personal history of malignant neoplasm of breast 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 blood loss (chronic) [facility]* Diagnosis Malignant neoplasm of lower-inner quadrant of 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, estrogen receptor positive (HCC)- Primary 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 blood loss (chronic) [facility]* Diagnosis On prednisone therapy Screening for osteoporosis Special screening for osteoporosis [facility]* Diagnosis Primary osteoarthritis of both knees- Primary Primary localized osteoarthrosis, lower leg [facility]* Diagnosis Rheumatic mitral regurgitation- Primary Rheumatic mitral insufficiency Paroxysmal atrial fibrillation (HCC) Atrial fibrillation Essential hypertension Unspecified essential hypertension Obstructive sleep apnea syndrome Obstructive sleep apnea (adult) (pediatric) Mixed hyperlipidemia Shortness of breath SVT (supraventricular tachycardia) (HCC) Other specified cardiac dysrhythmias [facility]* Diagnosis Chronic pain of left knee- Primary Pain in joint, lower leg Primary osteoarthritis of both knees Primary localized osteoarthrosis, lower leg [facility] Diagnosis Primary osteoarthritis of both knees Primary localized osteoarthrosis, lower leg [facility] Diagnosis Primary osteoarthritis of both knees- Primary Primary localized osteoarthrosis, lower leg [facility] Diagnosis Rheumatoid arthritis involving multiple sites, unspecified whether rheumatoid factor present (HCC)- Primary Osteopenia of multiple sites Medication monitoring encounter Encounter for therapeutic drug monitoring Long-term use of Plaquenil Encounter for long-term (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 other medications Platelets decreased (HCC) Thrombocytopenia, unspecified [facility]* Diagnosis Recurrent UTI- Primary Urinary tract infection, site not specified Vaginal atrophy Postmenopausal atrophic vaginitis [facility]* Diagnosis 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, unspecified laterality (HCC)- Primary [facility] Diagnosis Rheumatoid arthritis involving multiple sites with positive rheumatoid factor (HCC)- Primary Iron deficiency Iron deficiency anemia, unspecified [facility]* Diagnosis Malignant neoplasm of lower-inner quadrant of right breast of female, estrogen receptor positive (HCC)- Primary 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 blood loss (chronic) [facility]* Diagnosis Rheumatoid arthritis involving multiple sites with positive rheumatoid factor (HCC)- Primary [facility]* Diagnosis Rheumatoid arthritis involving multiple sites with positive rheumatoid factor (HCC)- Primary [facility]* Diagnosis Rheumatoid arthritis of multiple [...] therapeutic drug monitoring [facility] Diagnosis Rheumatoid arthritis of multiple sites [...] deficiency anemia, unspecified documented in this encounter [facility]* Diagnosis Rheumatoid arthritis of multiple sites [...] deficiency anemia, unspecified [facility] Diagnosis Rheumatoid arthritis of multiple sites [...] factor (HCC)- Primary documented [facility] this encounter [facility]* Diagnosis Rheumatoid arthritis of multiple sites [...] Senile osteoporosis- Primary [facility]* Diagnosis Rheumatoid arthritis of multiple sites [...] cardiac dysrhythmias Cough [facility]* Diagnosis Rheumatoid arthritis of multiple sites [...] unspecified fever cause documented in this encounter [facility]* Diagnosis Rheumatoid arthritis of multiple sites [...] Chronic cough Cough [facility]* Diagnosis Rheumatoid arthritis of multiple sites [...] factor (HCC)- Primary documented [facility]* Diagnosis Rheumatoid arthritis of multiple sites [...] blood loss (chronic) [facility]* Diagnosis Rheumatoid arthritis of multiple sites [...] in stool contents documented [facility] this encounter [facility] Diagnosis Rheumatoid arthritis of multiple sites [...] specified intestinal malabsorption [facility] Diagnosis Rheumatoid arthritis of multiple sites [...] therapeutic drug monitoring [facility] Diagnosis Rheumatoid arthritis of multiple sites [...] specified intestinal malabsorption documented [facility] this [facility] Diagnosis Rheumatoid arthritis of multiple sites [...] region and thigh documented in this [facility] Diagnosis Rheumatoid arthritis of multiple sites [...] in stool contents [facility] this [facility] Diagnosis Rheumatoid arthritis of multiple sites [...] On prednisone therapy documented in this encounter [facility] note* Diagnosis Rheumatoid arthritis of multiple sites [...] multiple sites, unspecified whether rheumatoid factor present ([facility]) Senile osteoporosis documented in this encounter [facility] note* Diagnosis Rheumatoid arthritis of multiple sites [...] On prednisone therapy [facility] Additional Instructions Call and [...] Friday or before you restart it. [facility] Work Phone: [facility]: [facility]: [facility] Hospital Discharge instructions Additional Instructions You are going to stop your Coumadin for 2 days. You are going to take the Aygestin 5 mg twice a day for 5 days. Please return here for worsening bleeding, dizziness, chest pain, any other concerns. Please follow-up with Dr. Montes [facility] Work Phone: Hospital Discharge instructions Additional Instructions Please follow-up with your PCP. Please use Tylenol for any fevers.[facility] Work Phone: Hospital Discharge instructions Additional Instructions You were given 1 unit of blood. Please follow-up with your primary care doctor for further monitoring of your blood levels.[facility] Work Phone: Reason for referral (narrative)* Outpatient [...] LDS W/I&R Cecilio Ibarra DO [address] [address] [facility] [place] [address] [place] [id number] Referral ID Status Reason Start Date Expiration Date V isits Requested Visits Authorized [id number] Closed Auto-Generate d Referral 09/05/2021 09/05/2022 1 1 [facility] for referral (narrative)* Diagnostic Procedure Only (Routine) - Closed Specialty Diagnoses / Procedures Referred By Michael mcgowan Referred To Contact XR IMAGING Diagnoses Personal history of breast cancer Rib pain on right side Procedures XR RIBS 2V AP/OBL RIGHT RADEX RIBS UNILATERAL 2 VIEWS Cassidy Arreola APRN.SENIOR FIREWALL ENGINEER [address] [place] [address] Xr Imaging Referral ID Status Reason Start Date Expiration Date V isits Requested Visits Authorized [id number] Closed Auto-Generate d Referral 06/05/2022 07/05/2023 1 1 [facility] for referral (narrative)* Diagnostic Procedure Only (Routine) - Closed Specialty Diagnoses / Procedures Referred By Contac t Referred To Contact XR IMAGING Diagnoses Pain in right wrist Procedures XR WRIST GENERAL 3V PA/LAT/OBL RIGHT RADEX WRIST COMPLETE MINIMUM 3 VIEWS Stella Preciado PA-C [address] [place] [address] [place] [address] Referral ID Status Reason Start Date Expiration Date V isits Requested Visits Authorized [id number] Closed Auto-Generate d Referral 11/25/2022 12/25/2023 1 1 [facility] for referral (narrative)* Diagnostic Procedure Only (Routine) - Closed Specialty Diagnoses / Procedures Referred By Contac t Referred To Contact XR IMAGING Diagnoses Personal history of breast cancer Rib pain on right side Procedures XR RIBS 2V AP/OBL RIGHT RADEX RIBS UNILATERAL 2 VIEWS Cassidy Arreola APRN.SENIOR FIREWALL ENGINEER [address] [place] [address] [place] [address] Referral ID Status Reason Start Date Expiration Date V isits Requested Visits Authorized [id number] Closed Auto-Generate d Referral 06/05/2022 07/05/2023 1 1 [facility] for referral (narrative)* Diagnostic Procedure Only (Routine) - Closed Specialty Diagnoses / Procedures Referred By Contac t Referred To Contact XR IMAGING Diagnoses Pain in right wrist Procedures XR WRIST GENERAL 3V PA/LAT/OBL RIGHT RADEX WRIST COMPLETE MINIMUM 3 VIEWS Stella Preciado PA-C [address] [place] [address] [place] [address] Referral ID Status Reason Start Date Expiration Date V isits Requested Visits Authorized [id number] Closed Auto-Generate d Referral 11/25/2022 12/25/2023 1 1 [facility] for referral (narrative)* Diagnostic Procedure Only (Routine) - Pending Review Specialty Diagnoses / Procedures Referred By Michael t Referred To Contact XR IMAGING Diagnoses Primary osteoarthritis of both knees Procedures XR KNEE GENERAL 4V AP BOTH/PA BOTH/LAT/MERC BILATERAL RADIOLOGIC EXAM KNEE COMPLETE 4/MORE VIEWS Stella Preciado PA-C [address] [place] [address] [place] [address] Referral ID Status Reason Start Date Expiration Date Visits Requested Visits Authorized [id number] Pending Review Auto-Generat ed Referral 06/10/2023 07/09/2024 1 1 [facility] for referral (narrative)No reason for referral information [facility] Work [facility]: Reason for referral (narrative)* Clinic-Administered Medication (Routine) - Authorized Specialty Diagnoses / Procedures Referred By Michael mcgowan Referred To Contact [facility] Thalia Monterroso MD [address] [place] [address] Phone: tel: fax: [facility] [place] [address] [place] [address] Referral ID Status Reason Start Date Expiration Date Visits Requested Visits Authorized [id number] Authorized Auto-Generat ed Referral 08/27/2024 11/25/2024 2 2 [facility] for visit Narrative* Diagnostic Procedure Only (Routine) - Closed Specialty Diagnoses / Procedures Referred By Cristyac t Referred To Contact XR IMAGING Diagnoses Personal history of breast cancer Rib pain on right side Procedures XR RIBS 2V AP/OBL RIGHT RADEX RIBS UNILATERAL 2 VIEWS Cassidy Arreola APRN.SENIOR FIREWALL ENGINEER [address] [place] [address] [place] [address] Referral ID Status Reason Start Date Expiration Date V isits Requested Visits Authorized [id number] Closed Auto-Generate d Referral 06/05/2022 07/05/2023 1 1 [facility] for visit Narrative* Diagnostic Procedure Only (Routine) - Closed Specialty Diagnoses / Procedures Referred By Contac t Referred To Contact XR IMAGING Diagnoses Pain in right wrist Procedures XR WRIST GENERAL 3V PA/LAT/OBL RIGHT RADEX WRIST COMPLETE MINIMUM 3 VIEWS VeStella sexton, PA-C [address] [place] [address] [place] [address] Referral ID Status Reason Start Date Expiration Date V isits Requested Visits Authorized [id number] Closed Auto-Generate d Referral 11/25/2022 12/25/2023 1 1 [facility] for visit Narrative* Diagnostic Procedure Only (Routine) - Closed Specialty Diagnoses / Procedures Referred By Contac t Referred To Contact XR IMAGING Diagnoses Primary osteoarthritis of both knees Procedures XR KNEE GENERAL 4V AP BOTH/PA BOTH/LAT/MERC BILATERAL RADIOLOGIC EXAM KNEE COMPLETE 4/MORE VIEWS VeStella sexton, PA-C [address] [place] [address] [place] [address] Referral ID Status Reason Start Date Expiration Date V isits Requested Visits Authorized [id number] Closed Auto-Generate d Referral 06/10/2023 07/09/2024 1 1 [facility] for visit Narrative* Diagnostic Procedure Only (Routine) - Closed Specialty Diagnoses / Procedures Referred By Contac t Referred To Contact XR IMAGING Diagnoses Bilateral hip pain Procedures XR HIP BILATERAL 5V PEL/AP/LAT EACH HIP RADEX HIPS BILATERAL WITH PELVIS MINIMUM 5 VIEWS Cassidy Arreola APRN.SENIOR FIREWALL ENGINEER [address] [place] [address] [place] [address] Referral ID Status Reason Start Date Expiration Date V isits Requested Visits Authorized [id number] Closed Auto-Generate d Referral 02/24/2024 03/25/2025 1 1 [facility] Summary Purpose Family History No Family History Records FoundNo Family History Records FoundNo Family History Records FoundNo Family History Records FoundNo Family History Records Found Advance Directives Documents on File Type Date Recorded Patient Blood Bank Order Control Clerk Expl anation Advance Directive(s) 01/12/2021 1:54 PM [...] No July 03, 2021 12:32am Power of House Sitter No July 03 12:32am Documents on File Type Date Recorded Patient Blood Bank Order Control Clerk Expl anation Advance Directive(s) 07/06/2021 12:56 PM [...] Maker Relationship: Health Ca re Power of House Sitter Agent Latest Code Status on File Code Status Date Activated Date Inactivated Comments DNR-CCA 07/06/2021 6:27 PM 2021 5:16 PM Documents on File Type Date Recorded Patient Blood Bank Order Control Clerk Expl anation Advance Directive(s) 08/12/2021 4:09 PM [...] August 20, 2021 8 :39am Power of House Sitter Yes August 20, 2021 8:39am Advance Directive Response Recorded Date/ Time Name of Medical Power of House Sitter DAUGHTER August 20, 2021 8:39am Living Will Yes August 26, 2021 1:00pm Power of House Sitter Yes August 26 1:00pm Documents on File Type Date Recorded Patient Blood Bank Order Control Clerk Expl anation Advance Directive(s) 08/12/2021 4:09 PM [...] Date/ Time Name of Medical Power of House Sitter ALFREDO August 20, 2021 8:39am Name of Medical Power of House Sitter eloisa August 26, 2021 1:00pm Living Will No October 18, 2021 11:00am Power of House Sitter No October 18 11:00am Documents on File Type Date Recorded Patient Blood Bank Order Control Clerk Expl anation Advance Directive(s) 09/28/2020 12:50 PM Advance Directive(s) 12/28/2008 Advance Directive Response Recorded Date/ Time Living Will No December 28 12:16pm Power of House Sitter No December 28, 2021 12:16pm Advance Directive Response Recorded Date/ Time Living Will No December 28 11:16am Power of House Sitter No December 28, 2021 11:16am Documents on File Type Date Recorded Patient Blood Bank Order Control Clerk Expl anation Advance Directive(s) 09/28/2020 12:50 PM [...] Decision Maker Relationship: Health Care Power of House Sitter Agent Latest Code Status on File Code [...] Decision Maker Relationship: Health Care Power of House Sitter Agent Advance Directive Response Recorded Date/ Time Living Will No April 07 1:01pm Power of House Sitter No April 07, 2023 1:01pm Advance Directive Response Recorded Date/ Time Living Will No April 07 2:01pm Power of House Sitter No April 07, 2023 2:01pm Date Activated Date Inactivated Comments 08/12/2021 8:33 PM 08/13/2021 5:51 PM Question Answer Comments DNR Order Discussed With: Patient Date Activated Date Inactivated Comments 07/06/2021 6:27 PM 2021 5:16 PM Question Answer Comments DNR Order Discussed With: PatientSurrogate Decis ion Maker Surrogate Decision Maker Relationship: Health Ca re Power of House Sitter Agent Date Activated Date Inactivated Comments 08/12/2021 8:33 PM 08/13/2021 5:51 PM Question Answer Comments DNR Order Discussed With: Patient Date Activated Date Inactivated Comments 07/06/2021 6:27 PM 2021 5:16 PM Question Answer Comments DNR Order Discussed With: PatientSurrogate Decis ion Maker Surrogate Decision Maker Relationship: Health Ca re Power of House Sitter Agent Chief Complaint and Reason for Visit Chief Complaint abd Chief Complaint abd JAIL BLOOD WORK Chief Complaint abd JAIL BLOOD WORK LAB WORK LAB WORK Chief Complaint abd JAIL BLOOD WORK LAB WORK LAB WORK hyster d&c symphion, polypectomy Reason for Visit Endometrial thickeni ng on ultrasound PMB (postmenopausal bleeding) History of diverticulitis of colon Chief Complaint abd JAIL BLOOD WORK LAB WORK LAB WORK hyster d&c symphion, polypectomy VAGINAL BLEEDING POST OP D&C ON 08/24 Reason for Visit Endometrial thickeni ng on ultrasound PMB (postmenopausal bleeding) History of diverticulitis of colon Chief Complaint abd JAIL BLOOD WORK LAB WORK LAB WORK hyster d&c symphion, polypectomy VAGINAL BLEEDING POST OP D&C ON 08/24 ABN Reason for Visit History of diverticu litis of colon Endometrial thickening on ultrasound PMB (postmenopausal bleeding) Chief Complaint JAIL BLOOD W ORK LAB WORK LAB WORK hyster d&c symphion, polypectomy VAGINAL BLEEDING POST OP D&C ON 08/24 ABN JAIL LAB WORK Reason for Visit History of diverticu litis of colon Endometrial thickening on ultrasound PMB (postmenopausal bleeding) Chief Complaint hyster d&c symphion, polypectomy VAGINAL BLEEDING POST OP D&C ON 08/24 ABN JAIL LAB WORK LABWORK JAIL LAB WORK Reason for Visit History of diverticu litis of colon Endometrial thickening on ultrasound PMB (postmenopausal bleeding) Chief Complaint ABN JAIL LAB WORK LABWORK JAIL LAB WORK JAIL LABWORK JAIL LABWORK NEW SYMPTOMS/CONCERN NEW SYMPTOMS/CONCERN ABNORMAL LABS Chief Complaint ABN JAIL LAB WORK LABWORK JAIL LAB WORK JAIL LABWORK JAIL LABWORK NEW SYMPTOMS/CONCERN JAIL LABWORK NEW SYMPTOMS/CONCERN ABNORMAL LABS NEW SYMPTOMS/CONCERN JAIL LAB WORK Chief Complaint ABN JAIL LAB WORK LABWORK JAIL LAB WORK LABWORK JAIL LABWORK JAIL LABWORK NEW SYMPTOMS/CONCERN JAIL LABWORK NEW SYMPTOMS/CONCERN JAIL LABWORK ABNORMAL LABS NEW SYMPTOMS/CONCERN JAIL LAB WORK Chief Complaint ABN JAIL LAB WORK LABWORK JAIL LAB WORK LABWORK JAIL LABWORK JAIL LABWORK NEW SYMPTOMS/CONCERN JAIL LABWORK NEW SYMPTOMS/CONCERN JAIL LABWORK ABNORMAL LABS NEW SYMPTOMS/CONCERN JAIL LAB WORK JAIL LABWORK Chief Complaint ABN JAIL LAB WORK LABWORK JAIL LAB WORK LABWORK JAIL LABWORK JAIL LABWORK NEW SYMPTOMS/CONCERN JAIL LABWORK NEW SYMPTOMS/CONCERN JAIL LABWORK ABNORMAL LABS NEW SYMPTOMS/CONCERN JAIL LAB WORK JAIL LABWORK JAIL LABWORK Chief Complaint LABWORK JAIL LAB WORK LABWORK JAIL LABWORK JAIL LABWORK NEW SYMPTOMS/CONCERN JAIL LABWORK NEW SYMPTOMS/CONCERN JAIL LABWORK ABNORMAL LABS NEW SYMPTOMS/CONCERN JAIL LAB WORK JAIL LABWORK JAIL LABWORK JAIL LABWORK JAIL LAB WORK 2 UNITS [facility] Chief Complaint JAIL LAB WOR K LABWORK JAIL LABWORK JAIL LABWORK NEW SYMPTOMS/CONCERN JAIL LABWORK NEW SYMPTOMS/CONCERN JAIL LABWORK ABNORMAL LABS NEW SYMPTOMS/CONCERN JAIL LAB WORK JAIL LABWORK JAIL LABWORK JAIL LABWORK JAIL LAB WORK 2 UNITS [facility] Chief Complaint LABWORK JAIL LABWORK JAIL LABWORK NEW SYMPTOMS/CONCERN JAIL LABWORK NEW SYMPTOMS/CONCERN JAIL LABWORK ABNORMAL LABS NEW SYMPTOMS/CONCERN JAIL LAB WORK JAIL LABWORK JAIL LABWORK JAIL LABWORK JAIL LABWORK JAIL LAB WORK 2 UNITS [facility] NEW SYMPTOMS/CONCERNS Chief Complaint LABWORK JAIL LABWORK JAIL LABWORK NEW SYMPTOMS/CONCERN JAIL LABWORK NEW SYMPTOMS/CONCERN JAIL LABWORK ABNORMAL LABS NEW SYMPTOMS/CONCERN JAIL LAB WORK JAIL LABWORK JAIL LABWORK JAIL LABWORK JAIL LABWORK JAIL LAB WORK 2 UNITS [facility] JAIL LABWORK NEW SYMPTOMS/CONCERNS NEW SYMPTOMS/CONCERN Chief Complaint JAIL LABWORK ABNORMAL LABS NEW SYMPTOMS/CONCERN JAIL LAB WORK JAIL LABWORK JAIL LABWORK JAIL LABWORK JAIL LABWORK JAIL LAB WORK 2 UNITS [facility] JAIL LABWORK NEW SYMPTOMS/CONCERNS NEW SYMPTOMS/CONCERN LABWORK Chief Complaint JAIL LABWORK JAIL LAB WORK 2 UNITS [facility] JAIL LABWORK NEW SYMPTOMS/CONCERNS NEW SYMPTOMS/CONCERN LABWORK JAIL LABWORK new symptoms Chief Complaint JAIL LAB WOR K 2 UNITS [facility] JAIL LABWORK NEW SYMPTOMS/CONCERNS NEW SYMPTOMS/CONCERN LABWORK JAIL LABWORK new symptoms LABWORK Chief Complaint NEW SYMPTOMS/CONCERN S NEW SYMPTOMS/CONCERN LABWORK JAIL LABWORK new symptoms LABWORK LABWORK Chief Complaint LABWORK NEW CONCERN JAIL LABWORK JAIL LAB WORK LABWORK LABWORK Chief Complaint JAIL LAB WOR K LABWORK LABWORK JAIL LAB WORK LABWORK Chief Complaint LABWORK JAIL LAB WORK LABWORK JAIL LABWORK Chief Complaint LABWORK NEW CONCERN JAIL LABWORK JAIL LABWORK JAIL LABWORK Chief Complaint NEW CONCERN JAIL LABWORK FOLLOW UP NOTE JAIL LABWORK NEW CONCERN JAIL LABWORK LABWORK Chief Complaint FOLLOW UP NOTE JAIL LABWORK NEW CONCERN JAIL LABWORK LABWORK LABWORK Chief Complaint JAIL LABWORK NEW CONCERN JAIL LABWORK LABWORK LABWORK LABWORK Chief Complaint Admit Date JAIL LAB WORK March 01 5:00am JAIL LAB WORK March 02 5:00am JAIL LAB WORK April 05, 2024 5:00am JAIL LAB WORK April 23, 2024 4:00am JAIL LABWORK May 03, 2024 5:00am NEW CONCERN May 13, 2024 3:32pm LABWORK May 13, 2024 9:45pm LABWORK May 31, 2024 5:0 0am Chief Complaint Admit Date JAIL LAB WORK April 05, 2024 5:00am JAIL LAB WORK April 23, 2024 4:00am JAIL LABWORK May 03, 2024 5:00am NEW CONCERN May 13, 2024 3:32pm LABWORK May 13, 2024 9:45pm LABWORK May 31, 2024 5:0 0am LABWORK June 16, 2024 5:00 am LABWORK July 05, 2024 5:0 0am NEW CONCERN July 06, 2024 2:2 6pm Chief Complaint Admit Date JAIL LAB WORK April 05, 2024 5:00am JAIL LAB WORK April 23, 2024 4:00am JAIL LABWORK May 03, 2024 5:00am NEW CONCERN May 13, 2024 3:32pm LABWORK May 13, 2024 9:45pm LABWORK May 31, 2024 5:0 0am LABWORK June 16, 2024 5:00 am LABWORK July 05, 2024 5:0 0am NEW CONCERN July 06, 2024 2:2 6pm LABWORK July 07, 2024 5:0 0am Chief Complaint Admit Date JAIL LAB WORK April 05, 2024 5:00am JAIL LAB WORK April 23, 2024 4:00am JAIL LABWORK May 03, 2024 5:00am NEW CONCERN May 13, 2024 3:32pm LABWORK May 13, 2024 9:45pm LABWORK May 31, 2024 5:0 0am LABWORK June 16, 2024 5:00 am LABWORK July 05, 2024 5:0 0am NEW CONCERN July 06, 2024 2:2 6pm LABWORK July 07, 2024 5:0 0am LABWORK July 08, 2024 12: 00pm Chief Complaint Admit Date JAIL LAB WORK April 23, 2024 4:00am JAIL LABWORK May 03, 2024 5:00am NEW CONCERN May 13, 2024 3:32pm LABWORK May 13, 2024 9:45pm LABWORK May 31, 2024 5:0 0am LABWORK June 16, 2024 5:00 am LABWORK July 05, 2024 5:0 0am NEW CONCERN July 06, 2024 2:2 6pm LABWORK July 07, 2024 5:0 0am LABWORK July 08, 2024 12: 00pm JAIL LAB WORK August 02, 2024 4:0 0am UTI, DIARRHEA, BLADDER FISTULA August 06, 2024 2:19pm Chief Complaint Admit Date JAIL LAB WORK April 23, 2024 4:00am JAIL LABWORK May 03, 2024 5:00am NEW CONCERN May 13, 2024 3:32pm LABWORK May 13, 2024 9:45pm LABWORK May 31, 2024 5:0 0am LABWORK June 16, 2024 5:00 am LABWORK July 05, 2024 5:0 0am NEW CONCERN July 06, 2024 2:2 6pm LABWORK July 07, 2024 5:0 0am LABWORK July 08, 2024 12: 00pm JAIL LAB WORK August 02, 2024 4:0 0am UTI, DIARRHEA, BLADDER FISTULA August 06, 2024 2:19pm LEFT ULNA August 13, 2024 2:06p m Room 4 August 13, 2024 2:32p m Chief Complaint Admit Date JAIL LAB WORK April 23, 2024 4:00am JAIL LABWORK May 03, 2024 5:00am NEW CONCERN May 13, 2024 3:32pm LABWORK May 13, 2024 9:45pm LABWORK May 31, 2024 5:0 0am LABWORK June 16, 2024 5:00 am LABWORK July 05, 2024 5:0 0am NEW CONCERN July 06, 2024 2:2 6pm LABWORK July 07, 2024 5:0 0am LABWORK July 08, 2024 12: 00pm JAIL LAB WORK August 02, 2024 4:0 0am [...] incontinence Procedures CONSULT TO URO GYNECOLOGY OFFICE/OUTPATIENT [facility] 60-74 MINUTES Jayde Hebert MD [address] [place] [address] Referral ID Status Reason Start Date Expiration Date Visits Requested Visits Authorized [id number] Authorized PCP Requested Referral Auto-Generate d Referral 08/30/2021 11/28/2021 1 1 Specialty Diagnoses / Procedures Referred By Contac t Referred To Contact Infectious Diseases Diagnoses Recurrent UTI History of ESBL E. coli infection Procedures CONSULT TO INFECTIOUS DISEASES OFFICE/OUTPATIENT [facility] 60-74 MINUTES Basilia Hernández MD [address] [address] Referral ID Status Reason Start Date Expiration Date Visits Requested Visits Authorized [id number] Authorized PCP Requested Referral 09/26/2021 09/26/2022 1 1 Specialty Diagnoses / Procedures Referred By Contac t Referred To Contact CT IMAGING Diagnoses Iron deficiency anemia due to chronic blood loss Bilateral hip pain Generalized abdominal pain Abdominal bloating Personal history of breast cancer Occult blood in stools Procedures CT CHEST W IVCON DIAGNOSTIC COMPUTED TOMOGRAPHY THORAX W/CONTRAST Cassidy Arreola APRN.SENIOR FIREWALL ENGINEER [address] [place] [address] [place] [address] Referral ID Status Reason Start Date Expiration Date Visits Requested Visits Authorized [id number] Authorized Auto-Generat ed Referral 4 03/25/2025 1 1 Specialty Diagnoses / Procedures Referred By Contac t Referred To Contact CT IMAGING Diagnoses Iron deficiency anemia due to chronic blood loss Bilateral hip pain Generalized abdominal pain Abdominal bloating Personal history of breast cancer Occult blood in stools Procedures CT ABD/PEL W IVCON CT ABD & PELVIS W/CONTRAST Cassidy Arreola APRN.SENIOR FIREWALL ENGINEER [address] [place] [address] [place] [address] Referral ID Status Reason Start Date Expiration Date Visits Requested Visits Authorized [id number] Authorized Auto-Generat ed Referral 4 03/25/2025 1 1 Specialty Diagnoses / Procedures Referred By Michael t Referred To Contact XR IMAGING Diagnoses Bilateral hip pain Procedures XR HIP BILATERAL 5V PEL/AP/LAT EACH HIP RADEX HIPS BILATERAL WITH PELVIS MINIMUM 5 VIEWS Cassidy Arreola APRN.SENIOR FIREWALL ENGINEER [address] [place] [address] [place] [address] Referral ID Status Reason Start Date Expiration Date Visits Requested Visits Authorized [id number] New Request Auto-Generat ed Referral 4 03/25/2025 [...] section and content) DATE CREATED AUTHOR 10/21/2019 [facility] DATE CREATED AUTHOR AUTHOR'S ORGANIZ ATION 08/28/2021 [facility] DATE CREATED AUTHOR AUTHOR'S ORGANIZ ATION 01/07/2022 [facility] DATE CREATED AUTHOR AUTHOR'S ORGANIZ ATION 06/19/[address] [facility] DATE CREATED AUTHOR AUTHOR'S ORGANIZ ATION 08/19/2024 [facility] Source Comments (unrecognize d section and content) In the event this informatio n is protected by the Federal Confidentiality of Alcohol and Drug Abuse Patient Records regulations: The Federal rules restrict any use of the information to criminally investigate or prosecute any alcohol or drug abuse patient.[facility] event this information is protected by the Federal Confidentiality of Alcohol and Drug Abuse Patient Records regulations: The Federal rules restrict any use of the information to criminally investigate or prosecute any alcohol or drug abuse patient.[facility] the event this information is protected by the Federal Confidentiality of Alcohol and Drug Abuse Patient Records regulations: The Federal rules restrict any use of the information to criminally investigate or prosecute any alcohol or drug abuse patient.[facility] the event this information is protected by the Federal Confidentiality of Alcohol and Drug Abuse Patient Records regulations: The Federal rules restrict any use of the information to criminally investigate or prosecute any alcohol or drug abuse patient.[facility] the event this information is protected by the Federal Confidentiality of Alcohol and Drug Abuse Patient Records regulations: The Federal rules restrict any use of the information to criminally investigate or prosecute any alcohol or drug abuse patient.[facility] the event this information is protected by the Federal Confidentiality of Alcohol and Drug Abuse Patient Records regulations: The Federal rules restrict any use of the information to criminally investigate or prosecute any alcohol or drug abuse patient.[facility] the event this information is protected by the Federal Confidentiality of Alcohol and Drug Abuse Patient Records regulations: The Federal rules restrict any use of the information to criminally investigate or prosecute any alcohol or drug abuse patient.[facility]In the event this information is protected by the Federal Confidentiality of Alcohol and Drug Abuse Patient Records regulations: The Federal rules restrict any use of the information to criminally investigate or prosecute any alcohol or drug abuse patient.[facility]In the event this information is protected by the Federal Confidentiality of Alcohol and Drug Abuse Patient Records regulations: The Federal rules restrict any use of the information to criminally investigate or prosecute any alcohol or drug abuse patient.[facility] the event this information is protected by the Federal Confidentiality of Alcohol and Drug Abuse Patient Records regulations: The Federal rules restrict any use of the information to criminally investigate or prosecute any alcohol or drug abuse patient.[facility]In the event this information is protected by the Federal Confidentiality of Alcohol and Drug Abuse Patient Records regulations: The Federal rules restrict any use of the information to criminally investigate or prosecute any alcohol or drug abuse patient.[facility] the event this information is protected by the Federal Confidentiality of Alcohol and Drug Abuse Patient Records regulations: The Federal rules restrict any use of the information to criminally investigate or prosecute any alcohol or drug abuse patient.[facility] the event this information is protected by the Federal Confidentiality of Alcohol and Drug Abuse Patient Records regulations: The Federal rules restrict any use of the information to criminally investigate or prosecute any alcohol or drug abuse patient.[facility]In the event this information is protected by the Federal Confidentiality of Alcohol and Drug Abuse Patient Records regulations: The Federal rules restrict any use of the information to criminally investigate or prosecute any alcohol or drug abuse patient.[facility]In the event this information is protected by the Federal Confidentiality of Alcohol and Drug Abuse Patient Records regulations: The Federal rules restrict any use of the information to criminally investigate or prosecute any alcohol or drug abuse patient.[facility]In the event this information is protected by the Federal Confidentiality of Alcohol and Drug Abuse Patient Records regulations: The Federal rules restrict any use of the information to criminally investigate or prosecute any alcohol or drug abuse patient.[facility]In the event this information is protected by the Federal Confidentiality of Alcohol and Drug Abuse Patient Records regulations: The Federal rules restrict any use of the information to criminally investigate or prosecute any alcohol or drug abuse patient.[facility]In the event this information is protected by the Federal Confidentiality of Alcohol and Drug Abuse Patient Records regulations: The Federal rules restrict any use of the information to criminally investigate or prosecute any alcohol or drug abuse patient.[facility]In the event this information is protected by the Federal Confidentiality of Alcohol and Drug Abuse Patient Records regulations: The Federal rules restrict any use of the information to criminally investigate or prosecute any alcohol or drug abuse patient.[facility]In the event this information is protected by the Federal Confidentiality of Alcohol and Drug Abuse Patient Records regulations: The Federal rules restrict any use of the information to criminally investigate or prosecute any alcohol or drug abuse patient.[facility]In the event this information is protected by the Federal Confidentiality of Alcohol and Drug Abuse Patient Records regulations: The Federal rules restrict any use of the information to criminally investigate or prosecute any alcohol or drug abuse patient.[facility]In the event this information is protected by the Federal Confidentiality of Alcohol and Drug Abuse Patient Records regulations: The Federal rules restrict any use of the information to criminally investigate or prosecute any alcohol or drug abuse patient.[facility]In the event this information is protected by the Federal Confidentiality of Alcohol and Drug Abuse Patient Records regulations: The Federal rules restrict any use of the information to criminally investigate or prosecute any alcohol or drug abuse patient.[facility]In the event this information is protected by the Federal Confidentiality of Alcohol and Drug Abuse Patient Records regulations: The Federal rules restrict any use of the information to criminally investigate or prosecute any alcohol or drug abuse patient.[facility]In the event this information is protected by the Federal Confidentiality of Alcohol and Drug Abuse Patient Records regulations: The Federal rules restrict any use of the information to criminally investigate or prosecute any alcohol or drug abuse patient.[facility]In the event this information is protected by the Federal Confidentiality of Alcohol and Drug Abuse Patient Records regulations: The Federal rules restrict any use of the information to criminally investigate or prosecute any alcohol or drug abuse patient.[facility]In the event this information is protected by the Federal Confidentiality of Alcohol and Drug Abuse Patient Records regulations: The Federal rules restrict any use of the information to criminally investigate or prosecute any alcohol or drug abuse patient.[facility]In the event this information is protected by the Federal Confidentiality of Alcohol and Drug Abuse Patient Records regulations: The Federal rules restrict any use of the information to criminally investigate or prosecute any alcohol or drug abuse patient.[facility]In the event this information is protected by the Federal Confidentiality of Alcohol and Drug Abuse Patient Records regulations: The Federal rules restrict any use of the information to criminally investigate or prosecute any alcohol or drug abuse patient.[facility]In the event this information is protected by the Federal Confidentiality of Alcohol and Drug Abuse Patient Records regulations: The Federal rules restrict any use of the information to criminally investigate or prosecute any alcohol or drug abuse patient.[facility]In the event this information is protected by the Federal Confidentiality of Alcohol and Drug Abuse Patient Records regulations: The Federal rules restrict any use of the information to criminally investigate or prosecute any alcohol or drug abuse patient.[facility]In the event this information is protected by the Federal Confidentiality of Alcohol and Drug Abuse Patient Records regulations: The Federal rules restrict any use of the information to criminally investigate or prosecute any alcohol or drug abuse patient.[facility]In the event this information is protected by the Federal Confidentiality of Alcohol and Drug Abuse Patient Records regulations: The Federal rules restrict any use of the information to criminally investigate or prosecute any alcohol or drug abuse patient.[facility]In the event this information is protected by the Federal Confidentiality of Alcohol and Drug Abuse Patient Records regulations: The Federal rules restrict any use of the information to criminally investigate or prosecute any alcohol or drug abuse patient.[facility]In the event this information is protected by the Federal Confidentiality of Alcohol and Drug Abuse Patient Records regulations: The Federal rules restrict any use of the information to criminally investigate or prosecute any alcohol or drug abuse patient.[facility]In the event this information is protected by the Federal Confidentiality of Alcohol and Drug Abuse Patient Records regulations: The Federal rules restrict any use of the information to criminally investigate or prosecute any alcohol or drug abuse patient.[facility]In the event this information is protected by the Federal Confidentiality of Alcohol and Drug Abuse Patient Records regulations: The Federal rules restrict any use of the information to criminally investigate or prosecute any alcohol or drug abuse patient.[facility]In the event this information is protected by the Federal Confidentiality of Alcohol and Drug Abuse Patient Records regulations: The Federal rules restrict any use of the information to criminally investigate or prosecute any alcohol or drug abuse patient.[facility]In the event this information is protected by the Federal Confidentiality of Alcohol and Drug Abuse Patient Records regulations: The Federal rules restrict any use of the information to criminally investigate or prosecute any alcohol or drug abuse patient.[facility]In the event this information is protected by the Federal Confidentiality of Alcohol and Drug Abuse Patient Records regulations: The Federal rules restrict any use of the information to criminally investigate or prosecute any alcohol or drug abuse patient.[facility]In the event this information is protected by the Federal Confidentiality of Alcohol and Drug Abuse Patient Records regulations: The Federal rules restrict any use of the information to criminally investigate or prosecute any alcohol or drug abuse patient.[facility]In the event this information is protected by the Federal Confidentiality of Alcohol and Drug Abuse Patient Records regulations: The Federal rules restrict any use of the information to criminally investigate or prosecute any alcohol or drug abuse patient.[facility]In the event this information is protected by the Federal Confidentiality of Alcohol and Drug Abuse Patient Records regulations: The Federal rules restrict any use of the information to criminally investigate or prosecute any alcohol or drug abuse patient.[facility]In the event this information is protected by the Federal Confidentiality of Alcohol and Drug Abuse Patient Records regulations: The Federal rules restrict any use of the information to criminally investigate or prosecute any alcohol or drug abuse patient.[facility]In the event this information is protected by the Federal Confidentiality of Alcohol and Drug Abuse Patient Records regulations: The Federal rules restrict any use of the information to criminally investigate or prosecute any alcohol or drug abuse patient.[facility]In the event this information is protected by the Federal Confidentiality of Alcohol and Drug Abuse Patient Records regulations: The Federal rules restrict any use of the information to criminally investigate or prosecute any alcohol or drug abuse patient.[facility]In the event this information is protected by the Federal Confidentiality of Alcohol and Drug Abuse Patient Records regulations: The Federal rules restrict any use of the information to criminally investigate or prosecute any alcohol or drug abuse patient.[facility]In the event this information is protected by the Federal Confidentiality of Alcohol and Drug Abuse Patient Records regulations: The Federal rules restrict any use of the information to criminally investigate or prosecute any alcohol or drug abuse patient.[facility]In the event this information is protected by the Federal Confidentiality of Alcohol and Drug Abuse Patient Records regulations: The Federal rules restrict any use of the information to criminally investigate or prosecute any alcohol or drug abuse patient.[facility]In the event this information is protected by the Federal Confidentiality of Alcohol and Drug Abuse Patient Records regulations: The Federal rules restrict any use of the information to criminally investigate or prosecute any alcohol or drug abuse patient.[facility]In the event this information is protected by the Federal Confidentiality of Alcohol and Drug Abuse Patient Records regulations: The Federal rules restrict any use of the information to criminally investigate or prosecute any alcohol or drug abuse patient.[facility]In the event this information is protected by the Federal Confidentiality of Alcohol and Drug Abuse Patient Records regulations: The Federal rules restrict any use of the information to criminally investigate or prosecute any alcohol or drug abuse patient.[facility]In the event this information is protected by the Federal Confidentiality of Alcohol and Drug Abuse Patient Records regulations: The Federal rules restrict any use of the information to criminally investigate or prosecute any alcohol or drug abuse patient.[facility]In the event this information is protected by the Federal Confidentiality of Alcohol and Drug Abuse Patient Records regulations: The Federal rules restrict any use of the information to criminally investigate or prosecute any alcohol or drug abuse patient.[facility]In the event this information is protected by the Federal Confidentiality of Alcohol and Drug Abuse Patient Records regulations: The Federal rules restrict any use of the information to criminally investigate or prosecute any alcohol or drug abuse patient.[facility]In the event this information is protected by the Federal Confidentiality of Alcohol and Drug Abuse Patient Records regulations: The Federal rules restrict any use of the information to criminally investigate or prosecute any alcohol or drug abuse patient.[facility]In the event this information is protected by the Federal Confidentiality of Alcohol and Drug Abuse Patient Records regulations: The Federal rules restrict any use of the information to criminally investigate or prosecute any alcohol or drug abuse patient.[facility]In the event this information is protected by the Federal Confidentiality of Alcohol and Drug Abuse Patient Records regulations: The Federal rules restrict any use of the information to criminally investigate or prosecute any alcohol or drug abuse patient.[facility]In the event this information is protected by the Federal Confidentiality of Alcohol and Drug Abuse Patient Records regulations: The Federal rules restrict any use of the information to criminally investigate or prosecute any alcohol or drug abuse patient.[facility]In the event this information is protected by the Federal Confidentiality of Alcohol and Drug Abuse Patient Records regulations: The Federal rules restrict any use of the information to criminally investigate or prosecute any alcohol or drug abuse patient.[facility]In the event this information is protected by the Federal Confidentiality of Alcohol and Drug Abuse Patient Records regulations: The Federal rules restrict any use of the information to criminally investigate or prosecute any alcohol or drug abuse patient.[facility]In the event this information is protected by the Federal Confidentiality of Alcohol and Drug Abuse Patient Records regulations: The Federal rules restrict any use of the information to criminally investigate or prosecute any alcohol or drug abuse patient.[facility]In the event this information is protected by the Federal Confidentiality of Alcohol and Drug Abuse Patient Records regulations: The Federal rules restrict any use of the information to criminally investigate or prosecute any alcohol or drug abuse patient.[facility]In the event this information is protected by the Federal Confidentiality of Alcohol and Drug Abuse Patient Records regulations: The Federal rules restrict any use of the information to criminally investigate or prosecute any alcohol or drug abuse patient.[facility]In the event this information is protected by the Federal Confidentiality of Alcohol and Drug Abuse Patient Records regulations: The Federal rules restrict any use of the information to criminally investigate or prosecute any alcohol or drug abuse patient.[facility]In the event this information is protected by the Federal Confidentiality of Alcohol and Drug Abuse Patient Records regulations: The Federal rules restrict any use of the information to criminally investigate or prosecute any alcohol or drug abuse patient.[facility]In the event this information is protected by the Federal Confidentiality of Alcohol and Drug Abuse Patient Records regulations: The Federal rules restrict any use of the information to criminally investigate or prosecute any alcohol or drug abuse patient.[facility]In the event this information is protected by the Federal Confidentiality of Alcohol and Drug Abuse Patient Records regulations: The Federal rules restrict any use of the information to criminally investigate or prosecute any alcohol or drug abuse patient.[facility]In the event this information is protected by the Federal Confidentiality of Alcohol and Drug Abuse Patient Records regulations: The Federal rules restrict any use of the information to criminally investigate or prosecute any alcohol or drug abuse patient.[facility]In the event this information is protected by the Federal Confidentiality of Alcohol and Drug Abuse Patient Records regulations: The Federal rules restrict any use of the information to criminally investigate or prosecute any alcohol or drug abuse patient.[facility]In the event this information is protected by the Federal Confidentiality of Alcohol and Drug Abuse Patient Records regulations: The Federal rules restrict any use of the information to criminally investigate or prosecute any alcohol or drug abuse patient.[facility]In the event this information is protected by the Federal Confidentiality of Alcohol and Drug Abuse Patient Records regulations: The Federal rules restrict any use of the information to criminally investigate or prosecute any alcohol or drug abuse patient.[facility]In the event this information is protected by the Federal Confidentiality of Alcohol and Drug Abuse Patient Records regulations: The Federal rules restrict any use of the information to criminally investigate or prosecute any alcohol or drug abuse patient.[facility]In the event this information is protected by the Federal Confidentiality of Alcohol and Drug Abuse Patient Records regulations: The Federal rules restrict any use of the information to criminally investigate or prosecute any alcohol or drug abuse patient.[facility]In the event this information is protected by the Federal Confidentiality of Alcohol and Drug Abuse Patient Records regulations: The Federal rules restrict any use of the information to criminally investigate or prosecute any alcohol or drug abuse patient.[facility]In the event this information is protected by the Federal Confidentiality of Alcohol and Drug Abuse Patient Records regulations: The Federal rules restrict any use of the information to criminally investigate or prosecute any alcohol or drug abuse patient.[facility]In the event this information is protected by the Federal Confidentiality of Alcohol and Drug Abuse Patient Records regulations: The Federal rules restrict any use of the information to criminally investigate or prosecute any alcohol or drug abuse patient.[facility]In the event this information is protected by the Federal Confidentiality of Alcohol and Drug Abuse Patient Records regulations: The Federal rules restrict any use of the information to criminally investigate or prosecute any alcohol or drug abuse patient.[facility]In the event this information is protected by the Federal Confidentiality of Alcohol and Drug Abuse Patient Records regulations: The Federal rules restrict any use of the information to criminally investigate or prosecute any alcohol or drug abuse patient.[facility]In the event this information is protected by the Federal Confidentiality of Alcohol and Drug Abuse Patient Records regulations: The Federal rules restrict any use of the information to criminally investigate or prosecute any alcohol or drug abuse patient.[facility]In the event this information is protected by the Federal Confidentiality of Alcohol and Drug Abuse Patient Records regulations: The Federal rules restrict any use of the information to criminally investigate or prosecute any alcohol or drug abuse patient.[facility]In the event this information is protected by the Federal Confidentiality of Alcohol and Drug Abuse Patient Records regulations: The Federal rules restrict any use of the information to criminally investigate or prosecute any alcohol or drug abuse patient.[facility]In the event this information is protected by the Federal Confidentiality of Alcohol and Drug Abuse Patient Records regulations: The Federal rules restrict any use of the information to criminally investigate or prosecute any alcohol or drug abuse patient.[facility]In the event this information is protected by the Federal Confidentiality of Alcohol and Drug Abuse Patient Records regulations: The Federal rules restrict any use of the information to criminally investigate or prosecute any alcohol or drug abuse patient.[facility]In the event this information is protected by the Federal Confidentiality of Alcohol and Drug Abuse Patient Records regulations: The Federal rules restrict any use of the information to criminally investigate or prosecute any alcohol or drug abuse patient.[facility]In the event this information is protected by the Federal Confidentiality of Alcohol and Drug Abuse Patient Records regulations: The Federal rules restrict any use of the information to criminally investigate or prosecute any alcohol or drug abuse patient.[facility]In the event this information is protected by the Federal Confidentiality of Alcohol and Drug Abuse Patient Records regulations: The Federal rules restrict any use of the information to criminally investigate or prosecute any alcohol or drug abuse patient.[facility] the event this information is protected by the Federal Confidentiality of Alcohol and Drug Abuse Patient Records regulations: The Federal rules restrict any use of the information to criminally investigate or prosecute any alcohol or drug abuse patient.[facility] the event this information is protected by the Federal Confidentiality of Alcohol and Drug Abuse Patient Records regulations: The Federal rules restrict any use of the information to criminally investigate or prosecute any alcohol or drug abuse patient.[facility] the event this information is protected by the Federal Confidentiality of Alcohol and Drug Abuse Patient Records regulations: The Federal rules restrict any use of the information to criminally investigate or prosecute any alcohol or drug abuse patient.[facility] the event this information is protected by the Federal Confidentiality of Alcohol and Drug Abuse Patient Records regulations: The Federal rules restrict any use of the information to criminally investigate or prosecute any alcohol or drug abuse patient.[facility] the event this information is protected by the Federal Confidentiality of Alcohol and Drug Abuse Patient Records regulations: The Federal rules restrict any use of the information to criminally investigate or prosecute any alcohol or drug abuse patient.[facility] the event this information is protected by the Federal Confidentiality of Alcohol and Drug Abuse Patient Records regulations: The Federal rules restrict any use of the information to criminally investigate or prosecute any alcohol or drug abuse patient.[facility]ull[facility] the event this information is protected by the Federal Confidentiality of Alcohol and Drug Abuse Patient Records regulations: The Federal rules restrict any use of the information to criminally investigate or prosecute any alcohol or drug abuse patient.[facility]ullIn the event this information is protected by the Federal Confidentiality of Alcohol and Drug Abuse Patient Records regulations: The Federal rules restrict any use of the information to criminally investigate or prosecute any alcohol or drug abuse patient.[facility]ullIn the event this information is protected by the Federal Confidentiality of Alcohol and Drug Abuse Patient Records regulations: The Federal rules restrict any use of the information to criminally investigate or prosecute any alcohol or drug abuse patient.[facility]ull[facility] the event this information is protected by the Federal Confidentiality of Alcohol and Drug Abuse Patient Records regulations: The Federal rules restrict any use of the information to criminally investigate or prosecute any alcohol or drug abuse patient.[facility]ullIn the event this information is protected by the Federal Confidentiality of Alcohol and Drug Abuse Patient Records regulations: The Federal rules restrict any use of the information to criminally investigate or prosecute any alcohol or drug abuse patient.[facility]ull[facility] the event this information is protected by the Federal Confidentiality of Alcohol and Drug Abuse Patient Records regulations: The Federal rules restrict any use of the information to criminally investigate or prosecute any alcohol or drug abuse patient.[facility]ullIn the event this information is protected by the Federal Confidentiality of Alcohol and Drug Abuse Patient Records regulations: The Federal rules restrict any use of the information to criminally investigate or prosecute any alcohol or drug abuse patient.[facility]ullIn the event this information is protected by the Federal Confidentiality of Alcohol and Drug Abuse Patient Records regulations: The Federal rules restrict any use of the information to criminally investigate or prosecute any alcohol or drug abuse patient.[facility]ullIn the event this information is protected by the Federal Confidentiality of Alcohol and Drug Abuse Patient Records regulations: The Federal rules restrict any use of the information to criminally investigate or prosecute any alcohol or drug abuse patient.[facility]ullIn the event this information is protected by the Federal Confidentiality of Alcohol and Drug Abuse Patient Records regulations: The Federal rules restrict any use of the information to criminally investigate or prosecute any alcohol or drug abuse patient.[facility]ullIn the event this information is protected by the Federal Confidentiality of Alcohol and Drug Abuse Patient Records regulations: The Federal rules restrict any use of the information to criminally investigate or prosecute any alcohol or drug abuse patient.[facility]ullIn the event this information is protected by the Federal Confidentiality of Alcohol and Drug Abuse Patient Records regulations: The Federal rules restrict any use of the information to criminally investigate or prosecute any alcohol or drug abuse patient.[facility]ullIn the event this information is protected by the Federal Confidentiality of Alcohol and Drug Abuse Patient Records regulations: The Federal rules restrict any use of the information to criminally investigate or prosecute any alcohol or drug abuse patient.[facility]In the event this information is protected by the Federal Confidentiality of Alcohol and Drug Abuse Patient Records regulations: The Federal rules restrict any use of the information to criminally investigate or prosecute any alcohol or drug abuse patient.[facility]ullIn the event this information is protected by the Federal Confidentiality of Alcohol and Drug Abuse Patient Records regulations: The Federal rules restrict any use of the information to criminally investigate or prosecute any alcohol or drug abuse patient.[facility]ullIn the event this information is protected by the Federal Confidentiality of Alcohol and Drug Abuse Patient Records regulations: The Federal rules restrict any use of the information to criminally investigate or prosecute any alcohol or drug abuse patient.[facility]ullIn the event this information is protected by the Federal Confidentiality of Alcohol and Drug Abuse Patient Records regulations: The Federal rules restrict any use of the information to criminally investigate or prosecute any alcohol or drug abuse patient.[facility]ullIn the event this information is protected by the Federal Confidentiality of Alcohol and Drug Abuse Patient Records regulations: The Federal rules restrict any use of the information to criminally investigate or prosecute any alcohol or drug abuse patient.[facility]ullIn the event this information is protected by the Federal Confidentiality of Alcohol and Drug Abuse Patient Records regulations: The Federal rules restrict any use of the information to criminally investigate or prosecute any alcohol or drug abuse patient.[facility]ullIn the event this information is protected by the Federal Confidentiality of Alcohol and Drug Abuse Patient Records regulations: The Federal rules restrict any use of the information to criminally investigate or prosecute any alcohol or drug abuse patient.[facility]ullIn the event this information is protected by the Federal Confidentiality of Alcohol and Drug Abuse Patient Records regulations: The Federal rules restrict any use of the information to criminally investigate or prosecute any alcohol or drug abuse patient.[facility]ullIn the event this information is protected by the Federal Confidentiality of Alcohol and Drug Abuse Patient Records regulations: The Federal rules restrict any use of the information to criminally investigate or prosecute any alcohol or drug abuse patient.[facility]ullIn the event this information is protected by the Federal Confidentiality of Alcohol and Drug Abuse Patient Records regulations: The Federal rules restrict any use of the information to criminally investigate or prosecute any alcohol or drug abuse patient.[facility]In the event this information is protected by the Federal Confidentiality of Alcohol and Drug Abuse Patient Records regulations: The Federal rules restrict any use of the information to criminally investigate or prosecute any alcohol or drug abuse patient.[facility]In the event this information is protected by the Federal Confidentiality of Alcohol and Drug Abuse Patient Records regulations: The Federal rules restrict any use of the information to criminally investigate or prosecute any alcohol or drug abuse patient.[facility]ullIn the event this information is protected by the Federal Confidentiality of Alcohol and Drug Abuse Patient Records regulations: The Federal rules restrict any use of the information to criminally investigate or prosecute any alcohol or drug abuse patient.[facility]ullIn the event this information is protected by the Federal Confidentiality of Alcohol and Drug Abuse Patient Records regulations: The Federal rules restrict any use of the information to criminally investigate or prosecute any alcohol or drug abuse patient.[facility]ullIn the event this information is protected by the Federal Confidentiality of Alcohol and Drug Abuse Patient Records regulations: The Federal rules restrict any use of the information to criminally investigate or prosecute any alcohol or drug abuse patient.[facility]ullIn the event this information is protected by the Federal Confidentiality of Alcohol and Drug Abuse Patient Records regulations: The Federal rules restrict any use of the information to criminally investigate or prosecute any alcohol or drug abuse patient.[facility]ullIn the event this information is protected by the Federal Confidentiality of Alcohol and Drug Abuse Patient Records regulations: The Federal rules restrict any use of the information to criminally investigate or prosecute any alcohol or drug abuse patient.[facility]ullIn the event this information is protected by the Federal Confidentiality of Alcohol and Drug Abuse Patient Records regulations: The Federal rules restrict any use of the information to criminally investigate or prosecute any alcohol or drug abuse patient.[facility]ullIn the event this information is protected by the Federal Confidentiality of Alcohol and Drug Abuse Patient Records regulations: The Federal rules restrict any use of the information to criminally investigate or prosecute any alcohol or drug abuse patient.[facility]ullIn the event this information is protected by the Federal Confidentiality of Alcohol and Drug Abuse Patient Records regulations: The Federal rules restrict any use of the information to criminally investigate or prosecute any alcohol or drug abuse patient.[facility]ullIn the event this information is protected by the Federal Confidentiality of Alcohol and Drug Abuse Patient Records regulations: The Federal rules restrict any use of the information to criminally investigate or prosecute any alcohol or drug abuse patient.[facility]ullIn the event this information is protected by the Federal Confidentiality of Alcohol and Drug Abuse Patient Records regulations: The Federal rules restrict any use of the information to criminally investigate or prosecute any alcohol or drug abuse patient.[facility]ullIn the event this information is protected by the Federal Confidentiality of Alcohol and Drug Abuse Patient Records regulations: The Federal rules restrict any use of the information to criminally investigate or prosecute any alcohol or drug abuse patient.[facility]ullIn the event this information is protected by the Federal Confidentiality of Alcohol and Drug Abuse Patient Records regulations: The Federal rules restrict any use of the information to criminally investigate or prosecute any alcohol or drug abuse patient.[facility]ullIn the event this information is protected by the Federal Confidentiality of Alcohol and Drug Abuse Patient Records regulations: The Federal rules restrict any use of the information to criminally investigate or prosecute any alcohol or drug abuse patient.[facility]In the event this information is protected by the Federal Confidentiality of Alcohol and Drug Abuse Patient Records regulations: The Federal rules restrict any use of the information to criminally investigate or prosecute any alcohol or drug abuse patient.[facility]ullIn the event this information is protected by the Federal Confidentiality of Alcohol and Drug Abuse Patient Records regulations: The Federal rules restrict any use of the information to criminally investigate or prosecute any alcohol or drug abuse patient.[facility]ullIn the event this information is protected by the Federal Confidentiality of Alcohol and Drug Abuse Patient Records regulations: The Federal rules restrict any use of the information to criminally investigate or prosecute any alcohol or drug abuse patient.[facility]ullIn the event this information is protected by the Federal Confidentiality of Alcohol and Drug Abuse Patient Records regulations: The Federal rules restrict any use of the information to criminally investigate or prosecute any alcohol or drug abuse patient.[facility]ullIn the event this information is protected by the Federal Confidentiality of Alcohol and Drug Abuse Patient Records regulations: The Federal rules restrict any use of the information to criminally investigate or prosecute any alcohol or drug abuse patient.[facility]ullIn the event this information is protected by the Federal Confidentiality of Alcohol and Drug Abuse Patient Records regulations: The Federal rules restrict any use of the information to criminally investigate or prosecute any alcohol or drug abuse patient.[facility]In the event this information is protected by the Federal Confidentiality of Alcohol and Drug Abuse Patient Records regulations: The Federal rules restrict any use of the information to criminally investigate or prosecute any alcohol or drug abuse patient.[facility]In the event this information is protected by the Federal Confidentiality of Alcohol and Drug Abuse Patient Records regulations: The Federal rules restrict any use of the information to criminally investigate or prosecute any alcohol or drug abuse patient.[facility]ullIn the event this information is protected by the Federal Confidentiality of Alcohol and Drug Abuse Patient Records regulations: The Federal rules restrict any use of the information to criminally investigate or prosecute any alcohol or drug abuse patient.[facility]In the event this information is protected by the Federal Confidentiality of Alcohol and Drug Abuse Patient Records regulations: The Federal rules restrict any use of the information to criminally investigate or prosecute any alcohol or drug abuse patient.[facility]ullIn the event this information is protected by the Federal Confidentiality of Alcohol and Drug Abuse Patient Records regulations: The Federal rules restrict any use of the information to criminally investigate or prosecute any alcohol or drug abuse patient.[facility] Reason for Visit (unrecogniz ed section and [...] incontinence Procedures CONSULT TO URO GYNECOLOGY OFFICE/OUTPATIENT [facility] 60-74 MINUTES Jayde Hebert MD [address] [place] [address] Referral ID Status Reason Start Date Expiration Date V isits Requested Visits Authorized [id number] Closed PCP Requested Referral Auto-Generated Referral 08/30/2021 11/28/2021 1 1 Reason Comments Anticoagulation Telephone Fu home INR Reason Comments Consult Specialty Diagnoses / Procedures Referred By Contac t Referred To Contact Infectious Diseases Diagnoses Recurrent UTI History of ESBL E. coli infection Procedures CONSULT TO INFECTIOUS DISEASES OFFICE/OUTPATIENT NEW HIGH MDM 60-74 MINUTES Basilia Hernández MD [address] [facility] [address] [place] [address] Referral ID Status Reason Start Date Expiration Date V isits Requested Visits Authorized [id number] Closed PCP Requested Referral 09/26/2021 09/26/2022 1 1 Reason Onset Date Comments Anticoagulation Telephone Fu 10/15/2021 Agustín e INR Result Reason Comments High INR/lab order Reason Comments Release Of Medical Records Reason Comments Patient Question Reason Comments PAC TRANSFER OF CARE Reason Comments Blood Draw (CVAD) Reason Onset Date Comments 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 Reason Comments Follow Up Dolores denies cardia c concernsDaughter, Eloisa, concerned about [...] By Contac t Referred To Contact [facility] Diagnoses Rheumatoid arthritis involving multiple sites with positive rheumatoid factor (HCC) Procedures INJECTION, RENFLEXIS Thalia Monterroso MD [address] [place] [address] [facility] [address] [place] [address] Referral ID Status Reason Start Date Expiration Date V isits Requested Visits Authorized [id number] Authorized 07/16/2023 03/16/2024 99 99 Specialty Diagnoses / Procedures Referred By Contac t Referred To Contact [facility] Diagnoses Rheumatoid arthritis involving multiple sites with positive rheumatoid factor (HCC) Procedures INJECTION, RENFLEXIS Thalia Monterroso MD [address] [place] [id number] [facility] [address] [place] [address] Reason Comments Joint Pain Specialty Diagnoses / Procedures Referred By Contac t Referred To Contact Diagnoses Senile osteoporosis Thalia Monterroso MD [address] [place] [id number] [facility] [address] [address] Referral ID Status Reason Start Date Expiration Date V isits Requested Visits Authorized [id number] Authorized 11/14/2023 02/12/2024 99 99 Reason Comments Established Patient Specialty Diagnoses / Procedures Referred By Contac t Referred To Contact Diagnoses 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 Cassidy Arreola APRN.[employer]IOR [employer] [address] [place] [address] [facility] [address] [place] [address] Referral ID Status Reason Start Date Expiration Date V isits Requested Visits Authorized [id number] Authorized 02/24/2024 05/24/2024 99 99 Specialty Diagnoses / Procedures Referred By [facility] Referred To Contact Diagnoses 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 Cassidy Arreola APRN.SENIOR FIREWALL ENGINEER [address] [place] [address] [facility] [address] [place] [address] Specialty Diagnoses / Procedures [facility] Diagnoses Iron deficiency anemia due to chronic blood loss Bilateral hip pain Generalized abdominal pain Abdominal bloating Personal history of breast cancer Occult blood in stools Procedures CT CHEST W IVCON DIAGNOSTIC COMPUTED TOMOGRAPHY THORAX W/CONTRAST Cassidy Arreola APRN.SENIOR [employer]WALL ENGINEER [address] [place] [address] [place] [address] Referral ID Status Reason Start Date Expiration Date V isits Requested Visits Authorized [id number] Closed Auto-Generate d Referral 02/24/2024 03/25/2025 [address] Specialty Diagnoses / Procedures [facility] Referred To Contact [facility] Diagnoses Iron deficiency anemia due to chronic blood loss Bilateral hip pain Generalized abdominal pain Abdominal bloating Personal history of breast cancer Occult blood in stools Procedures CT CHEST W IVCON DIAGNOSTIC COMPUTED TOMOGRAPHY THORAX W/CONTRAST Cassidy Arreola APRN.SENIOR FIREWALL ENGINEER [address] [place] [address] [place] [address] Reason Comments Joint Pain Care Teams (unrecognized sec tion and content) Jewel Stringer Relationship Specialty Start Date End Date Galina Iraheta MD [address] [facility] [place] [address] PCP - General Internal Medicine 01/15/16 13, Pharmacist [phone] [place] [address] Pharmacist Pharmacy 08/22/20 Jewel Stringer Relationship Specialty Start Date End Date Galina Iraheta MD [address] [facility] [place] [address] PCP - General Internal Medicine 01/15/16 13, Pharmacist [phone] [facility] [place] [address] Pharmacist Pharmacy 08/22/20 Jewel Stringer Relationship Specialty Start Date End Date Galina Iraheta MD [address] [place] [address] PCP - General Internal Medicine 01/15/16 13, Pharmacist [id number] [place] [address], [place] [address] Pharmacist Pharmacy 08/22/20 Jewel Stringer Relationship Specialty Start Date End Date Galina Iraheta MD [address] [place] [address] PCP - General Internal Medicine 01/15/16 13, Pharmacist [id number] [place] [address], [place] [address] Pharmacist Pharmacy 08/22/20 Jewel Stringer Relationship Specialty Start Date End Date Galina Iraheta MD [address] [facility] [place] [address] PCP - General Internal Medicine 01/15/16 13, Pharmacist [id number] [facility] [place] [address] Pharmacist Pharmacy 08/22/20 Jewel Stringer Relationship Specialty Start Date End Date Galina Iraheta MD [address] [place] [address] PCP - General Internal Medicine 01/15/16 13, Pharmacist [id number] [facility] [place] [address] Pharmacist Pharmacy 08/22/20 Jewel Stringer Relationship Specialty Start Date End Date Galina Iraheta MD [address] [facility] [place] [address] PCP - General Internal Medicine 01/15/16 13, Pharmacist [phone] [facility] [place] [address] Pharmacist Pharmacy 08/22/20 Jewel Stringer Relationship Specialty Start Date End Date Galina Iraheta MD [address] [facility] [place] [address] PCP - General Internal Medicine 01/15/16 13, Pharmacist [phone] [facility] [place] [address] Pharmacist Pharmacy 08/22/20 Jewel Stringer Relationship Specialty Start Date End Date Galina Iraheta MD [address] [facility] [place] [address] PCP - General Internal Medicine 01/15/16 13, Pharmacist [phone] [facility] [place] [address] Pharmacist Pharmacy 08/22/20 Jewel Stringer Relationship Specialty Start Date End Date Galina Iraheta MD [address] [facility] [place] [address] PCP - General Internal Medicine 01/15/16 13, Pharmacist [phone] [facility] [place] [address] Pharmacist Pharmacy 08/22/20 Jewel Stringer Relationship Specialty Start Date End Date Galina Iraheta MD [address] [facility] [place] [address] PCP - General Internal Medicine 01/15/16 13, Pharmacist [phone] [facility] [place] [address] Pharmacist Pharmacy 08/22/20 Jewel Stringer Relationship Specialty Start Date End Date Galina Iraheta MD [address] [facility] [place] [address] PCP - General Internal Medicine 01/15/16 13, Pharmacist [phone] [place] [address] Pharmacist Pharmacy 08/22/20 Jewel Stringer Relationship Specialty Start Date End Date Galina Iraheta MD [address] [facility] [place] [address] PCP - General Internal Medicine 01/15/16 13, Pharmacist [id number] [facility] [place] [address] Pharmacist Pharmacy 08/22/20 Jewel Stringer Relationship Specialty Start Date End Date Galina Iraheta MD [address] [facility] [place] [address] PCP - General Internal Medicine 01/15/16 13, Pharmacist [phone] [facility] [place] [address] Pharmacist Pharmacy 08/22/20 Jewel Stringer Relationship Specialty Start Date End Date Galina Iraheta MD [address] [facility] [place] [address] PCP - General Internal Medicine 01/15/16 13, Pharmacist [phone] [facility] [place] [address] Pharmacist Pharmacy 08/22/20 Jewel Stringer Relationship Specialty Start Date End Date Galina Iraheta MD [address] [facility] [place] [address] PCP - General Internal Medicine 01/15/16 13, Pharmacist [phone] [facility] [place] [address] Pharmacist Pharmacy 08/22/20 Jewel Stringer Relationship Specialty Start Date End Date Galina Iraheta MD [address] [facility] [place] [address] PCP - General Internal Medicine 01/15/16 13, Pharmacist [phone] [facility] [place] [address] Pharmacist Pharmacy 08/22/20 Jewel Stringer Relationship Specialty Start Date End Date Galina Iraheta MD [address] [facility] [place] [address] PCP - General Internal Medicine 01/15/16 13, Pharmacist [phone] [place] [address], [place] [address] Pharmacist Pharmacy 08/22/20 Jewel Stringer Relationship Specialty Start Date End Date Galina Iraheta MD [address] [place] [address] PCP - General Internal Medicine 01/15/16 13, Pharmacist [phone] [place] [address] Pharmacist Pharmacy 08/22/20 Jewel Stringer Relationship Specialty Start Date End Date Galina Iraheta MD [address] [place] [address] PCP - General Internal Medicine 01/15/16 13, Pharmacist [phone] [place] [address], [place] [address] Pharmacist Pharmacy 08/22/20 Jewel Stringer Relationship Specialty Start Date End Date Galina Iraheta MD [address] [place] [address] PCP - General Internal Medicine 01/15/16 13, Pharmacist [phone] [place] [address], [place] [address] Pharmacist Pharmacy 08/22/20 Jewel Stringer Relationship Specialty Start Date End Date Galina Iraheta MD [address] [place] [address] PCP - General Internal Medicine 01/15/16 13, Pharmacist [phone] [facility] [place] [address] Pharmacist Pharmacy 08/22/20 Jewel Stringer Relationship Specialty Start Date End Date Galina Iraheta MD [address] [place] [address] PCP - General Internal Medicine 01/15/16 13, Pharmacist [phone] [facility] [place] [address] Pharmacist Pharmacy 08/22/20 Jewel Stringer Relationship Specialty Start Date End Date Galina Iraheta MD [address] [facility] [place] [address] PCP - General Internal Medicine 01/15/16 13, Pharmacist [phone] [facility] [place] [address] Pharmacist Pharmacy 08/22/20 Jewel Stringer Relationship Specialty Start Date End Date Galina Iraheta MD [address] [facility] [place] [address] PCP - General Internal Medicine 01/15/16 13, Pharmacist [phone] [facility] [place] [address] Pharmacist Pharmacy 08/22/20 Jewel Stringer Relationship Specialty Start Date End Date Galina Iraheta MD [address] [facility] [place] [address] PCP - General Internal Medicine 01/15/16 13, Pharmacist [phone] [facility] [place] [address] Pharmacist Pharmacy 08/22/20 Jewel Stringer Relationship Specialty Start Date End Date Galina Iraheta MD [address] [facility] [place] [address] PCP - General Internal Medicine 01/15/16 13, Pharmacist [phone] [facility] [place] [address] Pharmacist Pharmacy 08/22/20 Jewel Stringer Relationship Specialty Start Date End Date Galina Iraheta MD [address] [facility] [place] [address] PCP - General Internal Medicine 01/15/16 13, Pharmacist [phone] [place] [address] Pharmacist Pharmacy 08/22/20 Jewel Stringer Relationship Specialty Start Date End Date Galina Iraheta MD [address] [facility] [place] [address] PCP - General Internal Medicine 01/15/16 13, Pharmacist [phone] [facility] [place] [address] Pharmacist Pharmacy 08/22/20 Jewel Stringer Relationship Specialty Start Date End Date Galina Iraheta MD [address] [facility] [address] PCP - General Internal Medicine 01/15/16 Jewel Stringer Relationship Specialty Start Date End Date Galina Iraheta MD [address] [facility] [address] PCP - General Internal Medicine 01/15/16 Jewel Stringer Relationship Specialty Start Date End Date Galina Iraheta MD [address] [place] [address] PCP - General Internal Medicine 01/15/16 Jewel Stringer Relationship Specialty Start Date End Date Galina Iraheta MD [address] [place] [address] PCP - General Internal Medicine 01/15/16 Jewel Stringer Relationship Specialty Start Date End Date Galina Iraheta MD [address] [facility] [address] PCP - General Internal Medicine 01/15/16 Jewel Stringer Relationship Specialty Start Date End Date Galina Iraheta MD [address] [facility] [address] PCP - General Internal Medicine 01/15/16 Jewel Stringer Relationship Specialty Start Date End Date Galina Iraheta MD [address] [facility] [address] PCP - General Internal Medicine 01/15/16 Jewel Stringer Relationship Specialty Start Date End Date Galina Iraheta MD [address] [facility] [address] PCP - General Internal Medicine 01/15/16 Jewel Stringer Relationship Specialty Start Date End Date Galina Iraheta MD [address] [place] [address] PCP - General Internal Medicine 01/15/16 Jewel Stringer Relationship Specialty Start Date End Date Galina Iraheta MD [address] [place] [address] PCP - General Internal Medicine 01/15/16 Sal Bonilla, DO [address] [place] [address] Hematology/Oncology 03/22/22 Jewel Stringer Relationship Specialty Start Date End Date Galina Iraheta MD [address] [place] [address] PCP - General Internal Medicine 01/15/16 Sal Bonilla, DO [address] [place] [address] Hematology/Oncology 03/22/22 Jewel Stringer Relationship Specialty Start Date End Date Galina Iraheta MD [address] [place] [address] PCP - General Internal Medicine 01/15/16 Sal Bonilla, DO [address] [place] [address] Hematology/Oncology 03/22/22 Team Status: Active Member Role Status Dates Dr. Galina Iraheta MD Family Provider Active Dr. Galina Iraheta MD Primary Care Provider Active Team Status: Inactive Member Role Status Dates Dr. Galina Iraheta MD Primary Care Provider Active Galina Horner PNEUMATIC TESTER MECHANIC, PNEUMATIC TESTER MECHANIC-C Attending Provider Active Team Status: Inactive Member [...] MD Primary Care Provider Active Galina Horner PNEUMATIC TESTER MECHANIC, PNEUMATIC TESTER MECHANIC-C Attending Provider, Referring Provider Active Team Status: Active Member Role Status Dates Dr. Galina Iraheta MD Primary Care Provider Active Reji Reyna MD Attending Provider Active Jewel Stringer Relationship Specialty Start Date End Date Galina Iraheta MD [address] [place] [address] PCP - General Internal Medicine 01/15/16 Sal Bonilla, DO [address] [place] [address] Hematology/Oncology 03/22/22 Jewel Stringer Relationship Specialty Start Date End Date Galina Iraheta MD [address] [place] [address] PCP - General Internal Medicine 01/15/16 Sal Bonilla, DO [address] [place] [address] Hematology/Oncology 03/22/22 Jewel Stringer Relationship Specialty Start Date End Date Galina Iraheta MD [address] [place] [address] PCP - General Internal Medicine 01/15/16 Sal Bonilla, DO [address] [place] [address] Hematology/Oncology 03/22/22 Jewel Stringer Relationship Specialty Start Date End Date Galina Iraheta MD [address] [place] [address] PCP - General Internal Medicine 01/15/16 Sal Bonilla, DO [address] [place] [address] Hematology/Oncology 03/22/22 Jewel Stringer Relationship Specialty Start Date End Date Galina Iraheta MD [address] [place] [address] PCP - General Internal Medicine 01/15/16 Sal Bonilla, DO [address] [facility] [place] [address] Hematology/Oncology 03/22/22 Jewel Stringer Relationship Specialty Start Date End Date Galina Iraheta MD [address] [facility] [address] PCP - General Internal Medicine 01/15/16 Sal Bonilla, DO [address] [place] [address] Hematology/Oncology 03/22/22 Jewel Stringer Relationship Specialty Start Date End Date Galina Iraheta MD [address] [place] [address] PCP - General Internal Medicine 01/15/16 Sal Bonilla, DO [address] [facility] [place] [address] Hematology/Oncology 03/22/22 Team Status: Inactive Member Role Status Dates Dr. Galina Iraheta MD Primary Care Provider Active Reji POPE MD Attending Provider Active Team Status: Inactive Member Role Status Dates Dr. Galina Iraheta MD Primary Care Provider Active Alejo POPE MD Attending Provider, Referring Mitul osorio Active Team Status: Inactive Member Role Status Dates Dr. Galina Iraheta MD Primary Care Provider Active Alejo POPE MD Attending Provider Active Team Status: Active Member Role Status Dates Dr. Galina Iraheta MD Primary Care Provider Active Reji POPE MD Attending Provider Active Jewel Stringer Relationship Specialty Start Date End Date Galina Iraheta MD [address] [place] [address] PCP - General Internal Medicine 01/15/16 Sal Bonilla DO [address] [place] [address] Hematology/Oncology 03/22/22 Jewel Stringer Relationship Specialty Start Date End Date Galina Iraheta MD [address] [place] [address] PCP - General Internal Medicine 01/15/16 Sal Bonilla DO [address] [place] [address] Hematology/Oncology 03/22/22 Jewel Stringer Relationship Specialty Start Date End Date Galina Iraheta MD [address] [place] [address] PCP - General Internal Medicine 01/15/16 Sal Bonilla DO [address] [place] [address] Hematology/Oncology 03/22/22 Jewel Stringer Relationship Specialty Start Date End Date Galina Iraheta MD [address] [place] [address] PCP - General Internal Medicine 01/15/16 Sal Bonilla DO [address] [place] [address] Hematology/Oncology 03/22/22 Jewel Stringer Relationship Specialty Start Date End Date Galina Iraheta MD [address] [place] [address] PCP - General Internal Medicine 01/15/16 Sal Bonilla DO [address] [place] [address] Hematology/Oncology 03/22/22 Jewel Stringer Relationship Specialty Start Date End Date Galina Iraheta MD [address] [place] [address] PCP - General Internal Medicine 01/15/16 Sal Bonilla DO [address] [place] [address] Hematology/Oncology 03/22/22 Jewel Stringer Relationship Specialty Start Date End Date Galina Iraheta MD [address] [place] [address] PCP - General Internal Medicine 01/15/16 Sal Bonilla DO [address] [place] [address] Hematology/Oncology 03/22/22 Jewel Stringer Relationship Specialty Start Date End Date Galina Iraheta MD [address] [place] [address] PCP - General Internal Medicine 01/15/16 Sal Bonilla DO [address] [place] [address] Hematology/Oncology 03/22/22 Jewel Stringer Relationship Specialty Start Date End Date Galina Iraheta MD [address] [place] [address] PCP - General Internal Medicine 01/15/16 Sal Bonilla DO [address] [place] [address] Hematology/Oncology 03/22/22 Jewel Stringer Relationship Specialty Start Date End Date Reji Reyna MD [address] [place] [address] PCP - General Internal Medicine 02/24/23 Sal Bonilla DO [address] [place] [address] Hematology/Oncology 03/22/22 Jewel Stringer Relationship Specialty Start Date End Date Reji Reyna MD [address] [place] [address] PCP - General Internal Medicine 02/24/23 Sal Bonilla DO [address] [place] [address] Hematology/Oncology 03/22/22 Jewel Stringer Relationship Specialty Start Date End Date Reji Reyna MD [address] [place] [address] PCP - General Internal Medicine 02/24/23 Sal Bonilla DO [address] [place] [address] Hematology/Oncology 03/22/22 Jewel Stringer Relationship Specialty Start Date End Date Reji Reyna MD [address] [place] [address] PCP - General Internal Medicine 02/24/23 Sal Bonilla DO [address] [facility] [place] [address] Hematology/Oncology 03/22/22 Jewel Stringer Relationship Specialty Start Date End Date Reji Reyna MD [address] [place] [address] PCP - General Internal Medicine 02/24/23 Sal Bonilla DO [address] [place] [address] Hematology/Oncology 03/22/22 Jewel Stringer Relationship Specialty Start Date End Date Reji Reyna MD [address] [place] [address] PCP - General Internal Medicine 02/24/23 Sal Bonilla DO [address] [place] [address] Hematology/Oncology 03/22/22 Jewel Stringer Relationship Specialty Start Date End Date Reji Reyna MD [address] [place] [address] PCP - General Internal Medicine 02/24/23 Sal Bonilla DO [address] [place], [place] [address] [phone] Hematology/Oncology 03/22/22 Jewel Stringer Relationship Specialty Start Date End Date Reji Reyna MD [address] [place], [place] [address] PCP - General Internal Medicine 02/24/23 Sal Bonilla DO [address] [facility] [place] [address] Hematology/Oncology 03/22/22 Jewel Stringer Relationship Specialty Start Date End Date Reji Reyna MD [address] [place] [address] PCP - General Internal Medicine 02/24/23 Sal Bonilla DO [address] [facility] [place] [address] Hematology/Oncology 03/22/22 Jewel Stringer Relationship Specialty Start Date End Date Reji Reyna MD [address] [place] [address] PCP - General Internal Medicine 02/24/23 Sal Bonilla DO [address] [facility] [place] [address] Hematology/Oncology 03/22/22 Jewel Stringer Relationship Specialty Start Date End Date Reji Reyna MD [address] [place] [address] PCP - General Internal Medicine 02/24/23 Sal Bonilla DO [address] [facility] [place] [address] Hematology/Oncology 03/22/22 Jewel Stringer Relationship Specialty Start Date End Date Reji Reyna MD [address] [place] [address] PCP - General Internal Medicine 02/24/23 Sal Bonilla DO [address] [place] [address] Hematology/Oncology 03/22/22 Jewel Stringer Relationship Specialty Start Date End Date Reji Reyna MD [address] [place] [address] PCP - General Internal Medicine 02/24/23 Sal Bonilla DO [address] [place] [address] Hematology/Oncology 03/22/22 Jewel Stringer Relationship Specialty Start Date End Date Reji Reyna MD [address] [place] [address] PCP - General Internal Medicine 02/24/23 Sal Bonilla DO [address] [place] [address] Hematology/Oncology 03/22/22 Jewel Stringer Relationship Specialty Start Date End Date Reji Reyna MD [address] [place] [address] PCP - General Internal Medicine 02/24/23 Sal Bonilla DO [address] [place] [address] Hematology/Oncology 03/22/22 Jewel Stringer Relationship Specialty Start Date End Date Reji Reyna MD [address] [place] [address] PCP - General Internal Medicine 02/24/23 Sal Bonilla DO [address] [place] [address] Hematology/Oncology 03/22/22 Jewel Stringer Relationship Specialty Start Date End Date Reji Reyna MD [address] [place] [address] PCP - General Internal Medicine 02/24/23 Sal Bonilla DO [address] [place] [address] Hematology/Oncology 03/22/22 Jewel Stringer Relationship Specialty Start Date End Date Reji Reyna MD [address] [place] [address] PCP - General Internal Medicine 02/24/23 Sal Bonilla DO [address] [place] [address] Hematology/Oncology 03/22/22 Jewel Stringer Relationship Specialty Start Date End Date Reji Reyna MD [address] [place] [address] PCP - General Internal Medicine 02/24/23 aSl Bonilla DO [address] [facility] [place] [address] Hematology/Oncology 03/22/22 Jewel Stringer Relationship Specialty Start Date End Date Reji Reyna MD [address] [place] [address] PCP - General Internal Medicine 02/24/23 Sal Bonilla DO [address] [place] [address] Hematology/Oncology 03/22/22 Jewel Stringer Relationship Specialty Start Date End Date Reji Reyna MD [address] [place] [address] PCP - General Internal Medicine 02/24/23 Sal Bonilla DO [address] [place] [address] Hematology/Oncology 03/22/22 Jewel Stringer Relationship Specialty Start Date End Date Reji Reyna MD [address] [place] [address] PCP - General Internal Medicine 02/24/23 Sal Bonilla DO [address] [place] [address] Hematology/Oncology 03/22/22 Jewel Stringer Relationship Specialty Start Date End Date Reji Reyna MD [address] [place] [address] PCP - General Internal Medicine 02/24/23 Sal Bonilla DO [address] [place] [address] Hematology/Oncology 03/22/22 Jewel Stringer Relationship Specialty Start Date End Date Galina Iraheta MD [address] [place] [address] PCP - General Internal Medicine 01/15/16 02/23/23 13, Pharmacist [phone] [place], [place] [phone] Pharmacist Pharmacy 08/22/20 11/04/21 Jewel Stringer Relationship Specialty Start Date End Date Galina Iraheta MD [address] [facility] [address] PCP - General Internal Medicine 01/15/16 02/23/23 13, Pharmacist [phone] [place], [place] [phone] Pharmacist Pharmacy 08/22/20 11/04/21 Jewel Stringer Relationship Specialty Start Date End Date Galina Iraheta MD [address] [facility] [address] PCP - General Internal Medicine 01/15/16 02/23/23 Jewel Stringer Relationship Specialty Start Date End Date Reji Reyna MD [address] [place] [address] PCP - General Internal Medicine 02/24/23 Sal Bonilla DO [address] [place] [address] Hematology/Oncology 03/22/22 Jewel Stringer Relationship Specialty Start Date End Date Reji Reyna MD [address] [place] [address] PCP - General Internal Medicine 02/24/23 Sal Bonilla DO [address] [facility] [place] [address] Hematology/Oncology 03/22/22 Jewel Stringer Relationship Specialty Start Date End Date Reji Reyna MD [address] [place] [address] PCP - General Internal Medicine 02/24/23 Sal Bonilla DO [address] [facility] [place] [address] Hematology/Oncology 03/22/22 Jewel Stringer Relationship Specialty Start Date End Date Reji Reyna MD [address] [place] [address] PCP - General Internal Medicine 02/24/23 Sal Bonilla DO [address] [place] [address] Hematology/Oncology 03/22/22 Jewel Stringer Relationship Specialty Start Date End Date Reji Reyna MD [address] [place] [address] PCP - General Internal Medicine 02/24/23 Sal Bonilla DO [address] [facility] [place] [address] Hematology/Oncology 03/22/22 Jewel Stringer Relationship Specialty Start Date End Date Reji Reyna MD [address] [place] [address] PCP - General Internal Medicine 02/24/23 Sal Bonilla DO [address] [place] [address] Hematology/Oncology 03/22/22 Jewel Stringer Relationship Specialty Start Date End Date Reji Reyna MD [address] [place], [place] [address] 825- PCP - General Internal Medicine 02/24/23 Sal Bonilla DO [address] [place] [address] Hematology/Oncology 03/22/22 Jewel Stringer Relationship Specialty Start Date End Date Reji Reyna MD [address] [place] [address] PCP - General Internal Medicine 02/24/23 Sal Bonilla DO [address] [place] [address] Hematology/Oncology 03/22/22 Jewel Stringer Relationship Specialty Start Date End Date Reji Reyna MD [address] [place] [address] PCP - General Internal Medicine 02/24/23 Sal Bonilla DO [address] [facility] [place] [address] Hematology/Oncology 03/22/22 Jewel Stringer Relationship Specialty Start Date End Date Reji Reyna MD [address] [place] [address] PCP - General Internal Medicine 02/24/23 Sal Bonilla DO [address] [place] [address] Hematology/Oncology 03/22/22 Jewel Stringer Relationship Specialty Start Date End Date Reji Reyna MD [address] [place], [place] [address] 177- PCP - General Internal Medicine 02/24/23 Sal Bonilla DO [address] [place], [place] [address] Hematology/Oncology 03/22/22 Jewel Stringer Relationship Specialty Start Date End Date Reji Reyna MD [address] [place], [place] [id number] PCP - General Internal Medicine 02/24/23 Sal Bonilla DO [address] [place], [place] [id number] Hematology/Oncology 03/22/22 Team Status: Active Member Role [...] End: May 13, 2024 Galina Horner NP PNEUMATIC TESTER MECHANIC-C Attending Provider Active Start: May 13, 2024 [...] July 07, 2024 End: July 07, 2024 eRji POPE MD Attending Provider Active Start: July [...] Referring Provider Active Start: August 18, 2024 OLVIE Waters Attending Provider Active Start: August 18, [...] August 18, 2024 End: August 18, 2024 Jewel Stringer Relationship Specialty Start Date End Date Reji Reyna MD [address] [place] [address] PCP - General Internal Medicine 02/24/23 Sal Bonilla DO [address] [place] [address] Hematology/Oncology 03/22/22 Goals (unrecognized section and content) [...] BE BASED ON THE PRIMARY CLINICAL RECORDS. [employer] [facility]. provides no warranty or guarantee of the accuracy or completeness of information in this document.
[2024-08-30 08:58] LABS: Absolute Lymphocyte Count 0.95 X10^3/uL (0.83-4.51); Absolute Neutrophil Count 5.3 X10^3/uL (2.0-7.7); Basophil# 0.04 X10^3/uL; Basophil% 0.6 % (0-1); Eosinophil# 0.11 X10^3/uL; Eosinophils% 1.5 % (0-5); Hematocrit 37.5 % (37-47); Hemoglobin 12.5 g/dL (12.0-15.0); Lymphocyte # 0.95 X10^3/ul (0.83-4.51); Lymphocyte % 13.2 % (19-41); Mean Corp Hgb Conc 33.3 g/dL (32-36); Mean Corpuscular Hgb 33.2 pg (27.0-32.0); Mean Corpuscular Volume 99.5 fL (81-99); Mean Platelet Vol. 10.4 fl (6.2-12.0); Monocyte# 0.73 X10^3/uL; Monocyte% 10.2 % (0-10); NRBC Flagged by Analyzer 0 % (0-5); Neutrophil % 73.9 % (47-70); Platelet Count 104 K/mm3 (150-450); RBC Distribution Width CV 15.9 % (11.6-14.6); RBC Distribution Width SD 57.3 fl (35.1-43.9); Red Blood Count 3.77 M/mm3 (4.2-5.4); White Blood Count 7.2 K/mm3 (4.4-11.0)
[2024-08-30 18:08] LABS: ALB/GLOB Ratio 1.1 RATIO (0.9-2.4); AST(SGOT) 34 U/L (<=31); Alanine Aminotransfer ALT/SGPT 42 U/L (<=34); Albumin, Serum 3.2 g/dL (3.4-4.8); Alkaline Phosphatase 75 U/L (35-104); Anion Gap 10 (5-15); BUN 19 mg/dL (4-19); BUN/Creat Ratio 30.3 RATIO (10-20); Calcium,Total 9.3 mg/dL (7.6-11.0); Carbon Dioxide 25.2 mmol/L (21.0-32.0); Chloride 102 mmol/L (98-108); Creatinine, Serum 0.62 mg/dL (0.70-1.20); EST Glomerular Filtration Rate 86 (>60); Glucose 75 mg/dL (70-99); Potassium 4.2 mmol/L (3.3-5.1); Protein, Total 6.3 g/dL (5.9-8.4); Sodium Level 137 mmol/L (133-145); Vitamin D,25 Hydroxy 34.2 ng/mL (30-100)
[2024-08-31 15:18] LABS: Total Bilirubin 1.04 mg/dL (0.00-1.30)
== END ==
LOC: OLS.WHLTSB 05:00
PROVIDERS: PCP Internal Medicine; Visit Provider Internal Medicine
DX: I49.9 Cardiac arrhythmia, unspecified (principal); E55.9 Vitamin D deficiency, unspecified; I25.10 Atherosclerotic heart disease of native coronary artery without angina pectoris; E61.0 Copper deficiency
CPT/HCPCS: 36415; 80053; 82306; 85025

== ENCOUNTER 2024-09-14 05:40 | Emergency (ER) | payer MEDICARE, BC, MEDICAID, SELFPAY ==
[2024-09-14 05:45] VITALS: BP 130/66; PULSE 88; RESP 16; TEMP 36.5; O2SAT 97; BMI 30.4
--- NOTE | 2024-09-14 05:56 | CT_ITS ---
PROCEDURE: SPINE CERVICAL WITHOUT CONTRAS 09/14/2024 REASON FOR EXAM: FALL Trauma TECHNIQUE: SPINE CERVICAL WITHOUT CONTRAS Coronal and Sagittal reconstruction series were provided. CONTRAST: None One or more dose reduction techniques were used (e.g., Automated exposure control, adjustment of the mA and/or kV according to patient size, use of iterative reconstruction technique. RADIATION DOSE SUMMARY: DLP: 1224.85 mGycm COMPARISON: August 07, 2019 FINDINGS: Visualized skull base and craniocervical junction demonstrate no evidence of fracture or dislocation. There is no evidence of cervical spine fracture. Alignment is normal. No soft tissue abnormality is seen. There is loss of disc height at each level. 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 Visualized portions of the lung apices demonstrate no evidence of pneumothorax. CT/Spine Cervical without Contras IMPRESSION: There is mild central canal stenosis at C4-5, secondary to disc and osteophyte protrusion, similar to the prior. There is no visible acute traumatic injury. Reading Location: [facility]
--- NOTE | 2024-09-14 05:56 | CT_ITS ---
EXAM: NONCONTRAST CT SCAN OF THE HEAD CLINICAL HISTORY: Fall, hit back of head COMPARISON: December 17, 2018, Aug 07 2019 TECHNIQUE: Serial axial series through the head were obtained without contrast. 2-D coronal and sagittal reformats were then obtained. DLP = 428.74 mGy-cm FINDINGS: Brain: There is no acute large territorial infarct, intracranial hemorrhage, midline shift or mass effect. There are atherosclerotic vascular calcifications involving the bilateral carotid siphons. The sella and pineal gland regions appear unremarkable. There is no evidence of cerebellar tonsillar herniation. Ventricles: There is no acute hydrocephalus. Basilar cisterns are patent. Paranasal sinuses: Well-aerated Mastoid air cells: Well-aerated. Calvarium: The bony calvarium is intact. Orbits: The bilateral globes are symmetric, without retrobulbar compressive mass lesion or hemorrhage. CT/Brain/Head without Contrast IMPRESSION: No acute intracranial pathology. Reading Location: [facility]
--- NOTE | 2024-09-14 06:09 | RAD_ITS ---
PROCEDURE: PELVIS 1 OR 2 VIEWS 09/14/2024 REASON FOR EXAM: PAIN TECHNIQUE: PELVIS 1 OR 2 VIEWS COMPARISON: None FINDINGS: There is no fracture identified. The SI joints are aligned. The sacral foramina appear intact. 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 Radiopaque sutures are noted in the mid pelvis. RAD/Pelvis 1 or 2 Views IMPRESSION: No fracture is identified. Reading Location: [facility]
--- NOTE | 2024-09-14 06:10 | RAD_ITS ---
PROCEDURE: ELBOW MIN 3 VIEWS 09/14/2024 REASON FOR EXAM: PAIN TECHNIQUE: ELBOW MIN 3 VIEWS COMPARISON: None FINDINGS: There is no fracture or dislocation identified. There is no visible joint effusion. Mineralization is normal. There is no visible atherosclerosis. RAD/Elbow min 3 Views IMPRESSION: No fracture or dislocation is identified. Reading Location: [facility]
[2024-09-14 06:40] LABS: Mucous, Urine 0 SEEN /hpf (<or=2+)
--- OUTSIDE RECORDS SUMMARY | 2024-09-14 06:41 | XMS RPT_ITS | CCD ---
Author Organization [facility] Care Team Providers Care Ribbon Hand Name Role Phone Galina Iraheta MD Primary Care Provider 13, Pharmacist Unavailable Galina Iraheta MD Primary Care Provider Dr. Galina Iraheta Primary Care Provider Tickton DINING HOST, DINING HOST-C Galina Attending Provider BASILIA Jerome Attending Unavailable GALINA IRAHETA Referring Unavailable GALINA IRAHETA Primary Care Unavailable BASILIA HERNÁNDEZ Attending Unavailable JAYDE HEBERT Referring Unavailable GALINA IRAHETA Primary Care Unavailable Dr. Galina Iraheta Primary Care Provider Tickton DINING HOST, DINING HOST-C Galina Attending Provider Galina Pedro MD Primary Care Provider Lindai Sal SEWELL Unavailable Dr. Galina Iraheta Primary Care Provider Tickton DINING HOST, DINING HOST-C Galina Attending Provider Dr. Galina Pedro Primary Care Provider Tickton DINING HOST, DINING HOST-C Galina Attending Provider Galina Pedro MD Primary Care Provider Dr. Galina Iraheta Primary Care Provider Tickton DINING HOST, DINING HOST-C Galina Attending Provider Dr. Galina Pedro Primary Care Provider Tickton DINING HOST, DINING HOST-C Galina Attending Provider Reji Reyna MD Primary Care Provider Dr. Galina Iraheta Primary Care Provider Siri DINING HOST, DINING HOST-C Galina Attending Provider Dr. Galina Iraheta Primary Care Provider Siri DINING HOST, DINING HOST-C Galina Attending Provider Maribell PANG, Reji Hilario Primary Care Provider Maribell PANG, Reji Hilario Primary Care Provider Galina Iraheta MD Primary Care Provider 13, Pharmacist Unavailable Alistair PANG, Dr. Mojica Primary Care Provider Maribell PANG, Reji Attending Provider Unavailtasia Reyna MD, Reji Referring Provider Unavailtasia Horner DINING HOST-CGalina Attending Provider Alistair PANG, Dr. Mojica Primary Care Provider Reji Reyna MD Attending Provider Unavailtasia Reyna MD, Dr. Hare Attending Provider Alistair PANG, Dr. Mojica Primary Care Provider Maribell PANG, Reji Attending Provider Unavailtasia Abdullahi MD, Dr. Mi Attending Provider Bradly PANG, Dr. Mi Referring Provider Maribell PANG, Dr. Hare Primary Care Provider Maribell PANG, Dr. Hare Referring Provider Yosi PRECIADO-CCarmella Attending Provider Richard PANG, Dr. Soto Attending Provider Alistair PANG, Dr. Mojica Primary Care Provider Reji Reyna MD Attending Provider Unavailtasia Reyna MD, Reji Referring Provider Unavailtasia Parham DINING HOST-CJuliet Attending Provider Oleghe OLS, Efewongbe Attending Unavailabl [...] Hiwot Abdullahi Attending Unavailable Oleghe OLS, Efewongbe Attending Unavailabl e Ganta, Galina Primary Care Unavailable Oleghe OLS, Efewongbe Attending Unavailabl e Ganta, Gailna Primary Care Unavailable Oleghe OLS, Efewongbe Attending Unavailabl e Oleghe OLS, Efewongbe Referring Unavailabl e Ganta, Galina Primary Care Unavailable Oleghe OLS, Efewongbe Attending Unavailabl e Oleghe, Efewongbe Primary Care Unavailable Oleghe OLS, Efewongbe Attending Unavailabl e Ganta, Galina Primary Care Unavailable Oleghe, Efewongbe Primary Care Unavailable Charles Ramos Attending Unavailable Oleghe, Efewongbe Primary Care Unavailable Tickton DINING HOST, Galina Attending Unavailable Oleghe OLS, Efewongbe Attending Unavailabl e Ganta, Galina Primary Care Unavailable Oleghe OLS, Efewongbe Attending Unavailabl e Ganta, Galina Primary Care Unavailable Oleghe OLS, Efewongbe Attending Unavailabl e Ganta, Galina Primary Care Unavailable Oleghe OLS, Efewongbe Attending Unavailabl e Ganta, Galina Primary Care Unavailable Ganta, Galina Primary Care Unavailable Tickton DINING HOST, Galina Attending Unavailable Oleghe OLS, Efewongbe Attending Unavailabl e Ganta, Galina Primary Care Unavailable Ganta, Galina Primary Care Unavailable Tickton DINING HOST, Galina Attending Unavailable Oleghe, Efewongbe Attending Unavailable Ganta, Galina Primary Care Unavailable Ganta, Galina Primary Care Unavailable Tickton DINING HOST, Galina Attending Unavailable Oleghe, Efewongbe Attending Unavailable Ganta, Galina Primary Care Unavailable Carmella Deluca Attending Unavailable Oleghe, Efewongbe Primary Care Unavailable Oleghe, Efewongbe Referring Unavailable Oleghe, Efewongbe Primary Care Unavailable Charles Ramos Attending Unavailable Carmella Deluca Attending Unavailable Oleghe, Efewongbe Primary Care Unavailable Oleghe, Efewongbe Referring Unavailable Oleghe, Efewongbe Primary Care Unavailable Charles Ramos Attending Unavailable Carmella Deluca Attending Unavailable Oleghe, Efewongbe Primary Care Unavailable Oleghe, Efewongbe Referring Unavailable Juliet Parham Attending Unavailable Oleghe, Efewongbe Primary Care Unavailable Oleghe, Efewongbe Referring Unavailable Oleghe OLS, Efewongbe Referring Unavailabl e Oleghe OLS, Efewongbe Attending Unavailabl e Ganta, Galina Primary Care Unavailable OLEGHE, EFEWONGBE B Primary Care Unavailable ARREOLA, CASSIDY Referring Unavailable ARREOLALINDABY Attending Unavailable OLEGHE, EFEWONGBE B Primary Care Unavailable ARREOLA, CASSIDY Referring Unavailable SELF Referring Unavailable OLEGHE, EFEWONGBE B Primary Care Unavailable RAY, THALIA Attending Unavailable OLEGHE, EFEWONGBE B Primary Care Unavailable RAY, THALIA Attending Unavailable OLEGHE, EFEWONGBE B Primary Care Unavailable ARREOLA, CASSIDY Referring Unavailable SELF Referring Unavailable OLEGHE, EFEWONGBE B [...] Primary Care Unavailable RAY, THALIA Referring Unavailable OLEREJIE, EFEWONGBE B Primary Care Unavailable OLEGHE, EFEWONGBE B Primary Care Unavailable RAY, THALIA Attending Unavailable SELF Referring Unavailable OLEGHE, EFEWONGBE B Primary Care Unavailable OLEGHE, EFEWONGBE B Primary Care Unavailable ARREOLA, CASSIDY Referring Unavailable OLEGHE, EFEWONGBE B Primary Care Unavailable ARREOLA, CASSIDY Referring Unavailable OLEGHE, EFEWONGBE B Primary Care Unavailable ARREOLA, CASSIDY Referring Unavailable Allergies Allergy Classification Reported Allergen(s) Allergy Type Date of Onset Reaction(s) Facility (20 sources) Angiotensin-converting enzyme inhibitor agent; Translations: [DESMOND INHIBITORS] Drug Intolerance Cough [facility] (20 sources) Cephalexin; Translations: [CEPHALEXIN] Drug Allergy Other: See Comments, [facility] Surgical [facility] (20 sources) Clindamycin; Translations: [CLINDAMYCIN] Drug Allergy Other: See Comments, [facility] (20 sources) cyclobenzaprine; Translations: [CYCLOBENZAPRINE] [facility] Diclofenac / miSOPROStol; Translations: [DICLOFENAC-MISOPROSTO L] Drug Allergy Diarrhea [facility] (20 sources) hydroCHLOROthiazide; Translations: [HYDROCHLOROTHIAZIDE] Drug Allergy 006 Mental Status Change [facility] (20 sources) Lisinopril; Translations: [LISINOPRIL] Drug Allergy [address] [facility] (20 sources) metroNIDAZOLE; Translations: [METRONIDAZOLE HCL] Drug Allergy Mental Status Change, Shortness of Breath [facility] (20 sources) Naproxen; Translations: [NAPROXEN] Drug Allergy Other: See Comments [facility] (20 sources) Naproxen; Translations: [NAPROXEN SODIUM] [facility] oxybutynin; Translations: [OXYBUTYNIN] Drug Allergy Other: See Comments [facility] (20 sources) PARoxetine; Translations: [PAROXETINE] Drug Allergy Contraindicat ion-Medical Surgical [facility] (20 sources) prednisoLONE / Sulfacetamide; Translations: [SULFACETAMIDE-PREDNIS OLONE] Drug Allergy [address] [facility] (20 sources) Sulfonamides (Antibiotic); Translations: [SULFA (SULFONAMIDE ANTIBIOTICS)] Drug Allergy Unknown [facility] Work Phone: (20 sources) adhesives [Other] Propensity to adverse reactions Other: See Comments [facility] (20 sources) Adhesive agent; Translations: [adhesive] Allergy to substance Unknown [facility] (20 sources) cyclobenzaprine; Translations: [cyclobenzaprine HCl] Drug Allergy [facility] (20 sources) Diclofenac; Translations: [diclofenac sodium] Drug Allergy [facility] (20 sources) metroNIDAZOLE Drug Allergy [facility] (20 sources) miSOPROStol Drug Allergy [facility] (20 sources) PARoxetine; Translations: [paroxetine HCl] Drug Allergy [facility] (20 sources) prednisoLONE; Translations: [prednisolone acetate] Drug Allergy [facility] (20 sources) Sulfacetamide; Translations: [sulfacetamide sodium] Drug Allergy [facility] (20 sources) Angiotensin-converting enzyme inhibitor agent Drug Intolerance Cough [facility] (20 sources) Angiotensin Converting Enzyme (Desmond) Inhibitors Allergy to substance [facility] Comment on above: ERROR (1 source) OTHER; Translations: [OTHER] Propensity to adverse reactions (disorder) [facility] Other [place] [facility] (13 sources) Hydroxychloroquine; Translations: [HYDROXYCHLOROQUINE] Drug Allergy [address] [facility] (1 source) Angiotensin Converting Enzyme (Desmond) Inhibitors Drug allergy (disorder) [facility] Rep[facility] (1 source) hydroCHLOROthiazide Drug Allergy [facility] Rep[facility] (1 source) Lisinopril Drug Allergy [facility] Repository (1 source) metroNIDAZOLE Drug Allergy [facility] (1 source) miSOPROStol Drug Allergy [facility] (1 source) Naproxen Drug Allergy [facility] Repository Medications Current Medications Medication Drug Class(es) [...] for pain for up to 3 days. biotin 5 mg oral tablet (20 sources) [...] on above: Take 5,000 mcg by mo [facility] once daily. Calcium Carb And Citrat-Mag Ox [...] take 1 tablet by mouth once daily tlonezt-dsmnkqxvf-gosqbib D3 500 mg-5 mcg (200 unit) per [...] Take 1 tablet by natalie once daily. [place]-Qkp-Vmo G7-Q6-Xcrcodhc (Citracal Plus) 021-18-5-125 co-lr-yj-unit Tablet (20 sources) Start: 08-20-2021 take 1 tablet by mouth twice daily Yktxtki-Zhx-Yjh O1-M4-Ahrimxul (Citracal Plus) 538-49-7-125 wa-fg-zp-unit Tablet Active 1 TABLET PO TWICE A DAY August 20, 2021 8:15am Start: 08-20-2021 End: 08-13-2024 Wgjrbao-Srh-Gvb B1-S6-Mknljg ls (Citracal Plus) 573-27-5-125 ml-mp-tg-unit Tablet Discontinued 1 {tbl} PO TWICE A DAY August 20, 2021 12:00am August 13, 2024 2:28pm Start: 08-20-2021 Xqdckth-Cay-Jg t S6-J6-Sgayjfwo (Citracal Plus) 947-37-6-125 yn-cg-xv-unit Tablet Active 1 {tbl} PO TWICE A DAY August 20, 2021 12:00am Start: 08-20-2021 take 1 tablet by natalie twice daily Fqutgss-Fhv-Yjh O9-A0-Kwiewfnz (Citracal Plus) 501-68-5-125 fr-ef-jc-unit Tablet Active 1 TABLET PO TWICE A DAY August 19, 2021 11:00pm Start: 08-20-2021 take 1 tablet by natalie twice daily Povzaal-Zef-Fgn S1-W0-Wiyotsxs (Citracal Plus) 092-01-4-125 bx-kl-zb-unit Tablet Active 1 TABLET PO TWICE A DAY August 20, 2021 12:00am carboxymethylcellulose sodiu m 10 mg/ml ophthalmic solution (10 sources) Start: 09-07-2024 Carboxymethylc ellulose Sodium (Artificial Tears (Cmc)) 1 % drops Active 1 NMA OPHTHALMIC 4 to 6 times per day as needed September 07, 2024 12:00am Start: 08-13-2024 End: 09-07-2024 take 1 drop(s) into the eye(s) every four hours as needed Carboxymethylcellulose Sodium (Artificia l Tears (Cmc)) 1 % drops Discontinued 1 NMA OPHTHALMIC Q4H as needed August 13, 2024 12:00am September 07, 2024 3:01pm cephalexin 500 mg oral capsule (3 sources) Cephalosporin Antibacterial Start: 08-07-2019 take 500 mg by mouth every six hours Cephalexin Active 500 MG PO EVERY 6 HOURS August 07, 2019 2:14pm cetirizine hydrochloride 10 mg oral tablet (20 sources) Histamine-1 Receptor Antagonist Start: 08-05-2011 End: 09-07-2024 take 1 tablet by mouth once daily cetirizine (ZYRTEC) 10 mg tablet Indications: Allergic rhinitis, cause unspecified Take 1 tablet by mouth once daily. 90 tablet 3 08/05/2011 Active Comment on above: Take 1 tablet by natalie th once daily. copper gluconate 2 mg oral capsule (10 sources) Start: 09-07-2024 take 1 capsule by mouth once daily Copper Gluconate 2 mg capsule Active 2 mg PO daily September 07, 2024 12:00am Start: 08-13-2024 End: 09-07-2024 take 1 tablet by mouth once daily Copper Gluconate 2 mg tablet Discontinued 2 mg PO daily August 13, 2024 12:00am September 07, 2024 2:59pm Cranberry Fruit (20 sources) Non-Standardized Food Allergenic [...] 1 ml denosumab 60 mg/ml prefilled syringe (5 sources) RANK Ligand Inhibitor Start: 09-07-2024 Denosumab (Prolia) 60 mg/mL syringe Active 60 mg SC every 6 months September 07, 2024 12:00am Start: 08-27-2024 End: 08-22-2025 denosumab 60 mg injection (P ROLIA) Dextran (20 sources) take 1 drop(s) into [...] needed. docusate sodium 50 mg / sennosides, half-way 8.6 mg oral capsule (20 sources) Start: 09-07-2024 Sennosides-Docusate Sodium (Senna Plus) 8.6-50 mg capsule Active 1 NMA PO AT BEDTIME September 07, 2024 12:00am Start: 03-06-2022 End: 09-07-2024 Sennosides-Docusate Sodium ( Senna Plus) 8.6-50 mg Capsule Discontinued 1 NMA PO TWICE A DAY as needed for constipation March 06, 2022 1:00am September 07, 2024 3:00pm enteric contrast (will be provided with radiology test) (1 source) Start: 02-24-2024 End: 02-25-2024 enteric contrast (will be provided with radiology [...] tablet (20 sources) Serotonin Reuptake Inhibitor Start: 02-02-2020 End: 09-07-2024 take 1 tablet by mouth once daily Escitalopram Oxalate 10 mg tablet Active 10 mg PO daily September 07, 2024 12:00am Comment on above: Take 1 tablet by natalie th once daily. ferrous gluconate 324 mg oral tablet (20 sources) Start: 03-06-2022 End: 09-07-2024 take 1 tablet by mouth once daily Ferrous Gluconate 324 mg (37.5 mg iron) tablet Active 324 mg PO daily September 07, 2024 12:00am Comment on above: Take 324 mg by mouth . Take 324 mg by mouth once daily. fluconazole 150 mg oral tablet (1 source) Azole Antifungal Start: 07-03-2021 End: 07-04-2021 take 1 tablet by mouth once daily fluconazole (DIFLUCAN) 150 mg tablet Take 1 tablet by mouth once daily for 1 day. 1 tablet 0 07/03/2021 07/04/2021 Active Comment on above: Take 1 tablet by natalie th once daily for 1 day. fluticasone propionate 0.05 mg/actuat metered dose nasal spray (20 sources) Corticosteroid Start: 08-20-2021 End: 09-07-2024 take 50 ug nasal route once daily Fluticasone Propionate (Flonase Allergy Relief) 50 mcg/actuation spray,suspension Active 2 NMA INTRANASAL daily September 07, 2024 12:00am administer into each nostril Start: 08-20-2021 Fluticasone Pr opionate (Flonase Allergy Relief) 50 mcg/actuation [place],Suspension Active 1 SPRAY INTRANASAL DAILY August 20, 2021 12:00am take 2 spray(s) nasa l route once daily fluticasone (FLONASE) 50 mcg/actuation nasal spray Use 2 Sprays in each nostril once daily. Active Comment on above: Use 2 Sprays in each nostril once daily. furosemide 20 mg oral tablet (20 sources) Loop Diuretic Start: 2021 End: 09-07-2024 take 1 tablet by mouth every other day furosemide (LASIX) 20 mg tablet Indications: Shortness of breath Take 1 tablet by mouth every other day. 04/09/2022 Active Start: 09-13-2020 End: 03-14-2021 take 1 tablet [...] by natalie th every other day. gabapentin 300 mg oral capsule (20 sources) Anti-epileptic Agent Start: 09-07-2024 take 1 capsule by mouth at bedtime Gabapentin 300 mg capsule Active 300 mg PO AT BEDTIME September 07, 2024 12:00am Start: 06-28-2019 End: 03-14-2022 take 0.5 tablet by mouth once daily gabapentin (NEURONTIN) 600 mg tablet Indications: Neuropathy Take 0.5 tablets by mouth once daily. 45 tablet 3 03/14/2021 Active Start: 08-30-2014 take 600 mg by mouth once indio y Gabapentin Active 600 MG PO DAILY August 30, 2014 10:14am Start: 08-30-2014 End: 09-07-2024 Gabapentin 600 MG tablet Discontinued 300 mg PO AT BEDTIME August 30, 2014 12:00am September 07, 2024 3:00pm Start: 08-30-2014 take 300 mg by mouth at bedtim e Gabapentin Active 300 MG PO AT BEDTIME August 30, 2014 12:00am Comment on above: Take 0.5 tablets by mouth once daily. Glucos Sul 1yhu-Aku-Ursrb-C-Mn (Glucosamine Chondroitin) 550-30-1 mg Capsule (13 sources) Start: 08-20-2021 take 1 capsule by mouth at bedtime Glucos Sul 4gqr-Acq-Lixtp-C-M n (Glucosamine Chondroitin) 550-30-1 mg Capsule Active 1 CAP PO AT BEDTIME August 20, 2021 8:15am Start: 08-20-2021 take 1 capsule by mo uth at bedtime Glucos Sul 5bbg-Kmr-Ofiip-C-Mn (Glucosamine Chondroitin) 550-30-1 mg Capsule Active 1 CAP PO AT BEDTIME August 19, 2021 11:00pm Start: 08-20-2021 take 1 capsule by mo uth at bedtime Glucos Sul 4zlv-Gcm-Bimrx-C-Mn (Glucosamine Chondroitin) 550-30-1 mg Capsule Active 1 [...] DAILY August 29, 2014 11:00pm Start: 08-30-2014 L.Acidchloé, Par acasei,B. Lactis Active 1 EACH PO DAILY August 30, 2014 12:00am levothyroxine sodium 0.025 mg oral capsule (20 sources) l-Thyroxine Start: 08-20-2021 End: 09-07-2024 take 1 capsule by mouth once daily Levothyroxine 25 mcg capsule Active 25 ug PO daily September 07, 2024 12:00am Start: 03-14-2021 take 1 tablet by [...] oral tablet (20 sources) Start: 09-27-19 End: 09-08-19 take 1 tablet by mouth twice daily at mealtime Methenamine Hippurate (HIPREX) 1 gram tablet Indications: Recurrent UTI Take 1 tablet by mouth two times a day with meals. 180 tablet 3 07/15/2023 Active Comment on above: Take 1 tablet by natalie twice daily with meals. Methylcellulose (14 sources) [...] (Erroneous entry) take 2 tablets by mo [facility] once daily METHYLCELLULOSE (CITRUCEL ORAL) Take 2 tablets by mouth once daily. 0 Active Comment on above: Take 2 tablets by mo [facility] once daily. 24 hr metoprolol succinate 25 mg extended release oral tablet (20 sources) beta-Adrenergic Nahun Start: 07-13-2021 End: 09-07-2024 take 1 tablet by mouth once daily Metoprolol Succinate 25 mg tablet extended release 24 hr Active 25 mg PO daily September 07, 2024 12:00am Start: 03-14-2021 metoprolol tar trate, short acting, [...] EVERY EVENING Take 1 tablet by natalie once daily. modafinil 100 mg oral tablet (20 sources) Sympathomimetic-like Agent Start: 3 End: take 1 tablet by mouth once daily in the morning as needed Modafinil 100 mg tablet Active 100 mg PO EVERY MORNING as needed September 07, 2024 12:00am Comment on above: TAKE 1/2 to 1 [...] DAILY August 30, 2014 10:14am Start: 08-30-2014 End: 09-07-2024 take 1 tablet by mouth once daily Multivitamin With Folic Acid (Thera) 1 TABLET tablet Discontinued 1 {tbl} PO DAILY August 30, 2014 12:00am September 07, 2024 3:00pm Start: 08-30-2014 take 1 tablet by natalie [...] on above: Take 1 capsule by mo [facility] twice daily with meals for 7 days. Take 1 capsule by mo [facility] twice daily with meals for 5 days. Take 1 capsule by mo [facility] twice daily for 5 days. Take 1 capsule by mo [facility] twice daily for 10 days. norethindrone acetate 5 mg oral tablet (11 sources) Start: 2 take 1 tablet by mouth twice daily Norethindrone Acetate (Aygestin) 5 mg tablet Active 5 MG PO TWICE A DAY August 25, 2021 11:00pm omeprazole 40 mg delayed release oral capsule (20 sources) Proton Pump Inhibitor Start: 5 take 1 capsule by mouth once daily Omeprazole 40 mg capsule,delayed release(DR/EC) Active 40 mg PO daily September 07, 2024 12:00am Start: 08-20-2021 End: 09-07-2024 take 2 capsules by mouth once daily Omeprazole Magnesium 20 mg Capsule,Delayed Release(Dr/Ec) Discontinued 40 mg PO DAILY August 20, 2021 12:00am September 07, 2024 2:53pm Start: 08-20-2021 take 40 mg by mouth [...] mo uth once daily. polyethylene glycol 3350 85829 mg powder for oral solution (14 sources) Osmotic Laxative Start: take 17 g by mouth once daily as needed Polyethylene Glycol 3350 17 gram powder in packet Active 17 g PO daily as needed August 13, 2024 12:00am End: 11-14-2023 polyethylene glycol 3350 (MS RALAX) 17 gram/dose powder Take 17 g by mouth once daily as needed for constipation. Dissolve dose in 4 - 8 ounces of liquid and take as directed. 11/14/2023 Discontinued predniSONE 20 mg oral tablet (20 sources) Start: 09-07-2024 take 5 mg by mouth once daily as needed Prednisone 20 mg tablet Active 5 mg PO daily as needed September 07, 2024 2:57pm Start: 08-27-2024 take 3 tablets by mo uth once daily predniSONE (DELTASONE) 5 mg tablet Take 3 tablets by mouth once daily. 08/27/2024 Active Start: 08-18-2024 End: 09-07-2024 take 2 tablets by mouth once daily Prednisone 20 mg tablet Discontinued 40 mg PO daily August 18, 2024 12:00am September 07, 2024 3:00pm Start: 08-13-2024 End: 08-27-2024 Prednisone 10 mg [...] take 9 mg by mouth once daily NC EDNISONE ORAL Take 9 mg by mouth once daily. Active take 9 mg by mouth once daily NC EDNISONE ORAL Take 9 mg by mouth [...] Take 8.6 mg by mouth once daily. Tramadol (20 sources) Opioid Agonist Start: 09-07-2024 take 1 tablet by mouth every six hours as needed Tramadol 25 mg tablet Active 25 mg PO EVERY 6 HOURS as needed September 07, 2024 12:00am Start: 06-21-2024 End: 08-21-2024 take 1 tablet by mouth four times daily Tramadol 50 mg tablet Discontinued 50 mg PO .qid 120 30 July 22, 2024 9:58am August 20, 2024 12:00am August 21, 2024 12:14am Start: 03-28-2024 End: 06-18-2024 take 1 tablet [...] every 6 hours as needed for pain. triamcinolone acetonide 0.055 mg/actuat metered dose nasal spray (20 sources) Corticosteroid Start: 03-26-2018 Triamcinolone Acetonide (Nasacort Aq Nasal [place]) 1 SPRAY Nasal.Sry Active 2 SPRAY NASAL DAILY March 26, 2018 11:19am Start: 03-26-2018 Triamcinolone Acetonide (Nasacort Aq Nasal [place]) 1 SPRAY aerosol,spray Active 2 SPRAY NASAL NEEDED March 26, 2018 1:00am Start: 03-05-2016 End: 08-13-2024 Triamcinolone Acetonide (Ángel acort Aq Nasal [place]) 1 SPRAY aerosol,spray Discontinued 2 NMA NASAL [...] as needed. Take 1,000 mg by natalie th as needed. 0.4 ml adalimumab 100 mg/ml auto-injector (11 sources) Tumor Necrosis Factor Nahun Start: End: adalimumab (HUMIRA,CF, PEN) 40 mg/0.4 mL pen kit Inject 40 mg (1 pen) subcutaneously every 2 weeks. 2 Each 5 07/04/2023 11/14/2023 Discontinued Comment on above: Inject 40 mg (1 pen) subcutaneously every 2 weeks. [id number] 200 actuat albuterol 0.09 mg/actuat metered dose [...] Take 1 tablet by natalie twice daily. ascorbic acid 500 mg oral tablet (20 sources) Vitamin C Start: End: take 1 tablet by mouth once daily Ascorbic Acid (Vitamin C) (Vitamin C) 500 mg Tablet Discontinued 500 mg PO DAILY August 20, 2021 12:00am September 07, 2024 2:58pm End: 2021 take 1 tablet by mouth once daily ascorbic acid, vitamin C, (VITAMIN C) 500 mg tablet Take 500 mg by mouth once daily. 2021 Discontinued Comment on above: Take 500 mg by mouth once daily. atorvastatin 10 mg oral tablet (5 sources) HMG-CoA Reductase Inhibitor Start: 03-26-19 End: 11-16-20 21 take 1 tablet by mouth once daily atorvastatin (LIPITOR) 10 mg tablet TAKE 1 TABLET BY MOUTH EVERY DAY 90 tablet 3 03/03/2020 01/30/2021 Discontinued betamethasone 3 mg/ml / betamethasone acetate 3 mg/ml injectable suspension (5 sources) Corticosteroid Start: 06-30-19 End: 06-30-19 betamethasone acetate-betamethason e sodium phosphate 6 mg injection (CELESTONE) Start: 06-18-2023 End: 06-18-2023 betamethasone acetate-betame thasone sodium phosphate 6 mg injection (CELESTONE) Start: 11-25-2022 End: 11-25-2022 betamethasone acetate-betame thasone sodium phosphate 6 mg injection (CELESTONE) Start: 01-21-2022 End: 01-21-2022 betamethasone acetate-betame thasone sodium phosphate 6 mg injection (CELESTONE) Calcium Carb And Citrat-Mag Ox 200 mg calcium- 50 mg Tablet (15 sources) Start: 08-20-2021 End: 08-13-2024 Calcium Carb And Citrat-Mag Ox 200 mg calcium- 50 mg Tablet Discontinued 1 {tbl} PO DAILY August 20, 2021 12:00am August 13, 2024 2:28pm Start: 08-20-2021 Calcium Carb A nd Citrat-Mag Ox 200 mg calcium- 50 mg Tablet Active 1 {tbl} PO DAILY August 20, 2021 12:00am cholecalciferol 0.025 mg chewable tablet (20 sources) Vitamin D Start: 08-20-2021 End: 09-07-2024 take 1 tablet by mouth once daily Cholecalciferol (Vitamin D3) (Vitamin D3) 25 mcg (1,000 unit) Tablet,Chewable Discontinued 25 ug PO DAILY August 20, 2021 12:00am September 07, 2024 2:59pm End: 2021 take 1 tablet by mouth once daily cholecalciferol (VITAMIN D) 1,000 unit tab tablet Take 1,000 Units by mouth once daily. 2021 Discontinued cholecalciferol (VITAMIN D-3) 50 mcg (2,000 unit) tablet Take 2,000 Units by mouth once daily. Taking 1000 0 Active Comment on above: Take 2,000 Units by mouth once daily. Taking 1000 Take 1,000 Units by mouth once daily. ciprofloxacin 500 mg oral tablet (3 sources) Quinolone Antimicrobial Start: 08-14-19 End: 08-21-19 take 1 tablet by mouth every twelve hours ciprofloxacin HCl (CIPRO) 500 mg tablet Take 1 tablet by mouth every 12 hours for 7 days. 14 tablet 0 08/13/2021 08/15/2021 Discontinued Comment on above: Take 1 tablet by [facility] every 12 hours for 7 days. diphenhydrAMINE hydrochloride 25 mg oral capsule (5 sources) Histamine-1 Receptor Antagonist Start: 01-28-20 End: 01-28-20 take 1 dose by mouth once 25 mg, ORAL, ONCE, 1 dose, On 01/28/24 at 1100 Start: 12-04-2023 End: 12-04-2023 take [...] Discontinued Start: 08-30-2014 take 1 capsule by [facility] once daily Docusate Sodium (Colace) 100 MG capsule Active 100 MG PO DAILY August 29, 2014 11:00pm Comment on above: Take 1 capsule by [facility] twice daily as needed for Constipation. estradiol [...] tablet (1 source) Histamine-2 Receptor Antagonist Start: End: 1 take 1 tablet by mouth once daily famotidine (PEPCID) 40 mg tablet Take 1 tablet by mouth once daily. 30 tablet 05/05/2020 07/21/2020 Discontinued ferrous sulfate 325 mg oral tablet (1 source) Start: End: 1 take 1 tablet by mouth twice daily ferrous sulfate 325 mg (65 mg iron) tablet Take 1 tablet by mouth twice daily. 60 tablet 1 01/14/2021 02/28/2021 Comment on above: Take 1 tablet by natalie twice daily. folic acid 1 mg oral tablet (5 sources) Start: 0 End: 1 take 3 tablets by mouth once daily folic acid 1 mg tablet Take 3 tablets by mouth once daily. 270 tablet 3 10/27/2020 01/30/2021 Discontinued Start: 08-30-2014 take 1 mg by mouth once daily Folic Acid Active 1 MG PO DAILY@0800 August 30, 2014 10:14am glucosamine/msm/chondroitin A (SSABQVNBYHR-FHLUFP-ATJ ORAL) (11 sources) End: 07-09-2021 take 1 capsule by mouth once daily glucosamine/msm/chondroitin A (RUDKNMKFNMJ-FEUGUU-TDU ORAL) Take 1 capsule by mouth once daily. 07/09/2021 Discontinued (Erroneous entry) End: 07-09-2021 take 1 capsule by mouth once daily glucosamine/msm/chondroitin A (WOXRVIGZBUH-OFXRFH-MAS ORAL) Take 1 capsule by mouth once daily. 0 07/09/2021 Discontinued (Erroneous entry) take 1 capsule by [facility] once daily glucosamine/msm/chondroitin A (QOFNZXWSHPR-NHWESY-RCG ORAL) Take 1 capsule by mouth once daily. 0 Active Comment on above: Take 1 capsule by [facility] once daily. Handicapped placcard (20 sources) Start: 04-22-2022 Handicapped placcard Active 0 .ROUTE .COMPLEX April 22, 2022 1:00am 1 each; 5 [...] Comment on above: Take 1 tablet by [facility] two times a day. inFLIXimab-abda 200 mg [...] over 1-3 Hours, ONCE, 1 dose, On Shamika 12/04/23 at 0830, TOTAL VOLUME = 250 mL. [...] Comment on above: Take 1 tablet by [facility] twice daily for 7 days. 10 ml [...] in NaCl (PF) 0.9% 10 mL injection (DEFINTocagen) (10 sources) Start: 09-06-2020 End: 07-09-2021 perflutren [...] Start: 06-17-2021 take 2 tablets by [facility] every eight hours as needed phenazopyridine (PYRIDIUM) 100 mg tablet Take 2 tablets by mouth three times daily as needed. 6 tablet 0 06/17/2021 Active Comment on above: Take 2 tablets by [facility] three times daily as needed. [facility] for [...] oral tablet (4 sources) Estrogen Agonist/Antagonist Start: 03-26-2018 End: 09-19-2020 take 1 tablet by mouth once daily tamoxifen (NOLVADEX) 20 mg tablet Take 1 tablet (20 mg) by mouth once daily. 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] Onset: 8 Resolved: 2 06-03-2017 Chronic Cardiac dysrhythmias (20 sources) Paroxysmal [...] disease (2 sources) Atherosclerotic heart disease of [place] coronary artery without angina pectoris; Translations: [Atherosclerotic heart disease of [place] coronary artery without angina pectoris] Onset: 5 [...] 7 04-22-2021 Chronic Fracture of upper limb (20 sources) Closed fracture of distal end of ulna; Translations: [Unspecified fracture of lower end of unspecified ulna, initial encounter for closed fracture] Onset: 5 [...] unspecified; Translations: [Vitamin D deficiency, unspecified] Onset: Chronic Osteoarthritis (20 sources) Bilateral shoulder osteoarthritis; Translations: [Primary osteoarthritis, right shoulder] Onset: 1 07-25-2020 Chronic Osteoporosis (20 sources) Senile osteoporosis; Translations: [Age-related osteoporosis without current pathological fracture] Onset: 4 11-14-2023 Chronic Other aftercare (20 sources) Anticoagulant effect; Translations: [care home (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 anticoagulants] 08-08-2019 Episodic Other aftercare (2 sources) Device in situ; Translations: [Encounter for adjustment and management of vascular access device] 09-24-2022 Episodic Other aftercare (4 sources) Drug therapy finding; Translations: [care home (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 systemic steroids] 06-06-2023 Episodic [...] fecal abnormalities] 02-24-2024 Episodic Other gastrointestinal disorders (2 sources) Altered bowel function; Translations: [Change in bowel habit] 09-07-2024 Episodic Other gastrointestinal disorders (1 source) Diarrhea, [...] Onset: 1 02-09-2021 Chronic Other liver diseases (8 sources) Hepatic sclerosis; Translations: [Hepatic sclerosis] 08-13-2024 [...] Translations: [Family history of diabetes mellitus] Onset: 04-23-202 5 Episodic Rheumatoid arthritis and related disease [...] initial encounter] 08-08-2019 Episodic Unclassified (1 source) Esophagitis, unspecified without bleeding; [...] 2 Episodic Cancer of breast (20 sources) History of [...] Serum iron low; Translations: [Iron deficiency] Onset: 5 10-26-2021 Episodic Other aftercare (20 sources) Long-term current use of anticoagulant; Translations: [long term care social worker (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 anticoagulants] Onset: 5 03-22-2019 [...] 04-14-2013 Episodic Other gastrointestinal disorders (1 source) Dysphagia, oropharyngeal phase; Translations: [Dysphagia, oropharyngeal phase] Onset: 5 Episodic Other gastrointestinal disorders (1 source) Abdominal distension (gaseous); Translations: [Abdominal bloating] Onset: 5 Episodic Other gastrointestinal disorders (1 source) Other fecal abnormalities; Translations: [Occult blood in stools] Onset: 5 Episodic Other hematologic conditions (1 [...] 04-14-2013 Episodic Residual codes; unclassified (1 source) Edema, unspecified; Translations: [Edema, unspecified] Onset: 4 Episodic Residual codes; unclassified (1 source) Estrogen receptor positive status [ER+]; Translations: [Malignant neoplasm of lower-inner quadrant of right breast of female, estrogen receptor positive (HCC)] Onset: 4 Episodic Spondylosis; intervertebral disc disorders; [...] Test Name Value Interpretation Reference Range Facility Gastroenterology Visit Repor ton 09-07-2024 Gastroenterology Visit Report [facility] [address] [place] [address] OFFICE VISIT Date of Service: 09/07/24 MR#: [id number] Acct: [id number] Name: CHRISTIAN LANDRUM Rep #: [id number] : 1935 Provider: OLIVE agrawal Age/Sex: 89/F Location: [facility] Status: Signed Intake Vital Signs 08/18/24 14:34 09/03/24 14:12 09/07/24 15:01 Height 5 ft 5 in 5 ft 5 in BP 164/75 H Respiration 18 Pulse 71 Temp 97.4 F L Temp Source Temporal Pulse Oximetry (%) 95 Oxygen Delivery Method room air Intake Visit Reasons: CHRONIC LOOSE STOOLS Chief Complaint: Left Ulna Allergies DESMOND Inhibitors Allergy (Verified 09/07/24 14:36) Unknown adhesive Allergy (Verified 09/07/24 14:36) Unknown cyclobenzaprine HCl (From Flexeril) Allergy (Verified 09/07/24 14:36) Unknown diclofenac sodium (From Arthrotec) Allergy (Verified 09/07/24 14:36) Unknown hydrochlorothiazide Allergy (Verified 09/07/24 14:36) Unknown lisinopril (From Zestril) Allergy (Verified 09/07/24 14:36) Unknown metronidazole (From Flagyl) Allergy (Verified 09/07/24 14:36) Unknown misoprostol (From Arthrotec) Allergy (Verified 09/07/24 14:36) Unknown naproxen Allergy (Verified 09/07/24 14:36) Unknown paroxetine HCl (From Paxil) Allergy (Verified 09/07/24 14:36) Unknown prednisolone acetate (From Blephamide) Allergy (Verified 09/07/24 14:36) Unknown sulfacetamide sodium (From Blephamide) Allergy (Verified 09/07/24 14:36) Unknown Medications ???Medication ???Instructions ???Recorded ???Confirmed ???Type diclofenac sodium 1 % topical gel 100 g TP PRN PRN Pain 03/26/18 History (Voltaren) acetaminophen 325 mg tablet 650 mg PO Q6H PRN Pain 08/20/21 History (Tylenol) guaifenesin 100 mg/5 mL oral liquid 200 mg PO Q4H PRN Cough 2 09/07/24 History Handicapped placcard See Rx Instructions .Route 3 09/03/24 Rx .COMPLEX #1 unit polyethylene glycol 3350 17 gram 17 g PO QDAY PRN 08/13/24 09/07/24 History oral powder packet carboxymethylcellulose sodium 1 % 1 drp ophthalmic (eye) 4-6XD PRN 09/07/24 09/07/24 History eye drops (Artificial Tears (carboxymethylcellulose)) cetirizine 10 mg tablet 10 mg PO QDAY PRN 09/07/24 5 History copper gluconate 2 mg capsule 2 mg PO QDAY 09/07/24 09/07/24 His tory denosumab 60 mg/mL subcutaneous 60 mg subcut [id number] 09/07/24 History syringe (Prolia) escitalopram oxalate 10 mg tablet 10 mg PO QDAY 09/07/24 09/07/24 H istory ferrous gluconate 324 mg (37.5 mg 324 mg PO QDAY 09/07/24 09/07/24 History iron) tablet fluticasone propionate 50 2 spray intranasal QDAY 09/07/24 0 09/07/24 History mcg/actuation nasal spray,suspension (Flonase Allergy Relief) furosemide 20 mg tablet (Lasix) 20 mg PO Q OTHER DAY 09/07/2408/16 History gabapentin 300 mg capsule 300 mg PO QHS 09/07/24 09/07/24 Hi story levothyroxine 25 mcg capsule 25 mcg PO QDAY 09/07/24 09/07/24 H istory methenamine hippurate 1 gram tablet 1 g PO BID 09/07/24 09/07/24 Hi story metoprolol succinate 25 mg 25 mg PO QDAY 09/07/24 09/07/24 Hi story tablet,extended release 24 hr modafinil 100 mg tablet 100 mg PO QAM PRN 09/07/24 5 History omeprazole 40 mg capsule,delayed 40 mg PO QDAY 09/07/24 09/07/24 Hi story release prednisone 20 mg tablet 5 mg PO QDAY PRN 09/07/24 09/07/24 History sennosides 8.6 mg-docusate sodium 1 tab-cap PO QHS 09/07/24 5 History 50 mg capsule (Senna Plus) tramadol 25 mg tablet 25 mg PO Q6H PRN 09/07/24 09/07/24 History Have you fallen in the past year?: Yes Nurse's Note: Has had a bowel resection and fistula repair at [facility]. Is having fecal incontinence which is new. It's more of a smear and she wipes and wipes and wipes. [facility] Medical History Loss of hearing Wears glasses [...] Breast CA Surgical History History of esophagogastroduodenoscopy (E (more content not included)... Normal [facility] Orthopedic Visit Reporton Orthopedic Visit Report [facility] [address] [place] [address] OFFICE VISIT Date of Service: 09/03/24 MR#: [id number] Acct: [id number] Name: CHRISTIAN LANDRUM Rep #: [id number] : 1935 Provider: OLIVE manzo Age/Sex: 89/F Location: [facility] [place] Status: Signed Intake Vital Signs 08/18/24 14:34 Height 5 ft 5 in Intake Visit Reasons: LEFT ULNA Chief Complaint: Left Ulna Allergies DESMOND Inhibitors Allergy (Verified 09/03/24 14:19) Unknown adhesive Allergy (Verified 09/03/24 14:19) Unknown cyclobenzaprine HCl (From Flexeril) Allergy (Verified 09/03/24 14:19) Unknown diclofenac sodium (From Arthrotec) Allergy (Verified 09/03/24 14:19) Unknown hydrochlorothiazide Allergy (Verified 09/03/24 14:19) Unknown lisinopril (From Zestril) Allergy (Verified 09/03/24 14:19) Unknown metronidazole (From Flagyl) Allergy (Verified 09/03/24 14:19) Unknown misoprostol (From Arthrotec) Allergy (Verified 09/03/24 14:19) Unknown naproxen Allergy (Verified 09/03/24 14:19) Unknown paroxetine HCl (From Paxil) Allergy (Verified 09/03/24 14:19) Unknown prednisolone acetate (From Blephamide) Allergy (Verified 09/03/24 14:19) Unknown sulfacetamide sodium (From Blephamide) Allergy (Verified 09/03/24 14:19) Unknown Medications ???Medication ???Instructions ???Recorded ???Confirmed ???Type gabapentin 600 mg tablet 300 mg PO QHS 08/30/14 09/03/24 Hi story multivitamin with folic acid 400 1 tab PO DAILY 08/30/14 09/03/24 H istory mcg tablet (Thera) diclofenac sodium 1 % topical gel 100 g TP PRN PRN Pain 03/26/18 History (Voltaren) acetaminophen 325 mg tablet 650 mg PO Q6H PRN Pain 08/20/21 History (Tylenol) ascorbic acid (vitamin C) 500 mg 500 mg PO DAILY 08/20/21 09/03/24 History tablet (Vitamin C) cholecalciferol (vitamin D3) 25 25 mcg PO DAILY 08/20/21 09/03/24 History mcg (1,000 unit) chewable tablet (Vitamin D3) escitalopram oxalate 10 mg tablet 10 mg PO DAILY 08/20/21 09/03/24 History (Lexapro) fluticasone propionate 50 1 spray intranasal DAILY 08/20/21 09/03/24 History mcg/actuation nasal spray,suspension (Flonase Allergy Relief) furosemide 20 mg tablet (Lasix) 20 mg PO QODAY 08/20/21 09/03/24 H istory levothyroxine 25 mcg capsule 25 mcg PO DAILY 08/20/21 09/03/24 History metoprolol succinate 25 mg 25 mg PO DAILY 08/20/21 09/03/24 H istory tablet,extended release 24 hr omeprazole magnesium 20 mg 40 mg PO DAILY 08/20/21 09/03/24 H istory capsule,delayed release cetirizine 10 mg tablet 10 mg PO DAILY 03/06/22 09/03/24 H istory ferrous gluconate 324 mg (37.5 mg 324 mg PO DAILY 03/06/22 09/03/24 History iron) tablet guaifenesin 100 mg/5 mL oral liquid 200 mg PO Q4H PRN Cough 2 09/03/24 History methenamine hippurate 1 gram 1 g PO BID 03/06/22 09/03/24 Histo ry tablet (Hiprex) sennosides 8.6 mg-docusate sodium 1 tab-cap PO BID PRN constipation 03/06/22 09/03/24 History 50 mg capsule (Senna Plus) Handicapped placcard See Rx Instructions .Route 3 09/03/24 Rx .COMPLEX #1 unit carboxymethylcellulose sodium 1 % 1 drp ophthalmic (eye) Q4H PRN 09/03/24 History eye drops (Artificial Tears (carboxymethylcellulose)) copper gluconate 2 mg tablet 2 mg PO QDAY 08/13/24 09/03/24 His tory polyethylene glycol 3350 17 gram 17 g PO QDAY PRN 08/13/24 09/03/24 History oral powder packet prednisone 20 mg tablet 40 mg PO QDAY 08/18/24 09/03/24 Hi story Have you fallen in the [...] the service provided and the decisions made (more content not included)... Normal [facility] Wrist min 3 Viewson 09-04-19 Wrist min 3 Views [facility] Imaging Services [address] [place], [place] [id number] Wrist min 3 Views MR#: [id number] Acct: [id number] Name: CHRISTIAN LANDRUM Rep #: [id number] : 1935 F 89 From: Mallika wyatt MD PCP: Dr. Reji Reyna MD Status: DEP AMB Study: Wrist min 3 Views Date of Exam: 09/03/24 Exam# [id number] Ordering Dr: Carmella Deluca PROCEDURE: WRIST MIN 3 VIEWS 09/03/2024 REASON FOR EXAM: FX F/U TECHNIQUE: WRIST MIN 3 VIEWS COMPARISON: 08/18/2024. FINDINGS: Further healing of the fracture line in the distal ulnar diaphysis. Mild osteopenia of the visualized bones. Degenerative joint disease. No dislocation is seen. No lytic or blastic bone lesion is noted. RAD/Wrist min 3 Views IMPRESSION: Further healing of the fracture line in the distal ulnar diaphysis. Reading Location: [place] [address] CC: DINING HOSTWilfrido Deluca; Dr. Reji Reyna MD Glue Maker: Signed Normal [facility] Absolute lymphocyte countOrd ered By: Reji Reyna on 08-30-2024 Lymphocytes Auto (Unsp spec) [#/Vol] 0.95 10*3/uL 0.83-4.51 [facility] Absolute neutrophil countOrd ered By: Reji Reyna on 08-30-2024 Neutrophils (Bld) [#/Vol] 5.3 10*3/uL 2.0-7.7 [facility] Anion gap in Serum or Plasma Ordered By: Reji Reyna on 08-30-2024 Anion gap [Moles/Vol] 10 mmol/L 5-15 [facility] Automated lymphocyte count a s percentage of total leukocytesOrdered By: Reji Reyna on 08-30-2024 Lymphocytes/100 WBC Auto (Unsp spec) 13.2 % Low 19-41 [facility] BUN/creatinine ratioOrdered By: Reji Reyna on 08-30-2024 Urea nitrogen/Creatinine [Mass ratio] 30.3 mg/mg High 10-20 [facility] Basophil percentageOrdered B y: Reji Reyna on 08-30-2024 Basophils/100 WBC (Bld) 0.6 % 0-1 [facility] Bilirubin, totalOrdered By: Reji Reyna on 08-30-2024 Bilirubin [Mass/Vol] 1.04 mg/dL 0.00-1.30 [facility] Carbon dioxide, total [Moles /volume] in Central venous bloodOrdered By: Reji Reyna on 08-30-2024 CO2 [Moles/Vol] 25.2 mmol/L 21.0-32.0 [facility] Chloride assayOrdered By: Angelito Reyna on 08-30-2024 Chloride [Moles/Vol] 102 mmol/L 98-108 [facility] Eosinophil percentageOrdered By: Reji Reyna on 08-30-2024 Eosinophils/100 WBC (Bld) 1.5 % 0-5 [facility] Erythrocyte distribution wid th ratioOrdered By: [place] Reyna on 08-30-2024 Erythrocyte distribution width (RBC) [Ratio] 15.9 % High 11.6-14.6 [facility] Erythrocyte distribution wid th standard deviationOrdered By: [place] Reyna on 08-30-2024 Erythrocyte distribution width (RBC) [Ratio] 57.3 fl High 35.1-43.9 [facility] Glomerular filtration rate ( GFR) estimation/1.73 sq m using serum, plasma, or whole bOrdered By: Reji Reyna on 08-30-2024 GFR/1.73 sq M.predicted among non-blacks MDRD (S/P/Bld) [Vol rate/Area] 86 mL/min/{1.73_m2} >60 [facility] Comment on above: mL/min/1.73m2 CKD-EP I Creatinine Equation (2020) Hematocrit Auto (Bld) [Volum e fraction]Ordered By: Reji Reyna on 08-30-2024 Hematocrit (Bld) [Volume fraction] 37.5 % 37-47 [facility] Hemoglobin measurementOrdere d By: Reji Reyna on 08-30-2024 Hemoglobin (Bld) [Mass/Vol] 12.5 g/dL 12.0-15.0 [facility] Immature granulocytes/100 WB C Auto (Bld)Ordered By: Reji Reyna on 08-30-2024 Immature granulocytes/100 WBC (Bld) 0.600 % 0.0-0.9 [facility] Comment on above: IG% - Immature Granu locytes (promyelocytes, myelocytes and metamyelocytes) > 1% indicates that a LEFT SHIFT is Present. Laboratory - Chemistry and C hemistry - challengeOrdered By: Reji Reyna on 08-30-2024 AST [Catalytic activity/Vol] 34 U/L High <32 [facility] MCV (mean corpuscular volume ) determinationOrdered By: Reji Reyna on 08-30-2024 MCV (RBC) [Entitic vol] 99.5 fL High 81-99 [facility] Mean corpuscular hemoglobin (MCH) determinationOrdered By: [facility] Reyna on 08-30-2024 MCH (RBC) [Entitic mass] 33.2 pg High 27.0-32.0 [facility] Mean corpuscular hemoglobin concentration (MCHC) determinationOrdered By: [place] Reyna on 08-30-2024 MCHC (RBC) [Mass/Vol] 33.3 g/dL 32-36 [facility] Mean platelet volume determi nationOrdered By: Reji Reyna on 08-30-2024 Platelet mean volume (Bld) [Entitic vol] 10.4 fL 6.2-12.0 [facility] Monocyte percentageOrdered B y: Angelitomerylmichaelgarfield Reyna on 08-30-2024 Monocytes/100 WBC (Bld) 10.2 % High 0-10 [facility] Neutrophil percentageOrdered By: [facility] Gopalalyssa on 08-30-2024 Neutrophils/100 WBC (Bld) 73.9 % High 47-70 [facility] Nucleated red blood cell per centageOrdered By: arline Reyna on 08-30-2024 Nucleated RBC/100 WBC (Bld) [Ratio] 0 % 0-5 [facility] Platelet countOrdered By: merylshine Reyna on 08-30-2024 Platelets (Bld) [#/Vol] 104 10*3/uL Low 150-450 [facility] Potassium measurement (mass/ volume)Ordered By: arline Reyna on 08-30-2024 Potassium (Unsp spec) [Mass/Vol] 4.2 mmol/L 3.3-5.1 [facility] RBC Auto (Bld) [#/Vol]Ordere d By: Reji Reyna on 08-30-2024 RBC (Bld) [#/Vol] 3.77 10*6/uL Low 4.2-5.4 [facility] Serum creatinine measurement (mass/volume)Ordered By: Reji Reyna on 08-30-2024 Creatinine [Mass/Vol] 0.62 mg/dL Low 0.70-1.20 [facility] Serum globulin measurementOr dered By: Reji Reyna on 08-30-2024 Globulin (S) [Mass/Vol] 3.0 g/dL 2.2-4.2 [facility] Serum glucose measurement (m ass/volume)Ordered By: Reji Reyna 08-30-2024 Glucose [Mass/Vol] 75 mg/dL 70-99 [facility] Serum or plasma alanine [place] otransferase (ALT) measurementOrdered By: Reji Reyna 08-30-2024 ALT [Catalytic activity/Vol] 42 U/L High <35 [facility] Serum or plasma albumin yonatan urement (mass/volume)Ordered By: Reji Reyna 08-30-2024 Albumin [Mass/Vol] 3.2 g/dL Low 3.4-4.8 [facility] Serum or plasma albumin/glob ulin mass ratioOrdered By: Reji Reyna 08-30-2024 Albumin/Globulin [Mass ratio] 1.1 {ratio} 0.9-2.4 [facility] Serum or plasma alkaline shannon sphatase measurementOrdered By: Reji Renya 08-30-2024 ALP [Catalytic activity/Vol] 75 U/L 35-104 [facility] Serum or plasma calcium yonatan urement (mass/volume)Ordered By: Reji Reyna 08-30-2024 Calcium [Mass/Vol] 9.3 mg/dL 7.6-11.0 [facility] Serum or plasma urea nitroge n measurement (mass/volume)Ordered By: Reji Reyna 08-30-2024 Urea nitrogen [Mass/Vol] 19 mg/dL 4-19 [facility] Sodium levelOrdered By: Jas Reyna on 08-30-2024 Sodium [Moles/Vol] 137 mmol/L 133-145 [facility] Total proteinOrdered By: Fredy Reyna on 08-30-2024 Protein [Mass/Vol] 6.3 g/dL 5.9-8.4 [facility] White blood cell (WBC) count Ordered By: Reji Reyna on 08-30-2024 WBC (Bld) [#/Vol] 7.2 10*3/uL 4.4-11.0 [facility] Forearm 2 Viewson 08-18-2024 Forearm 2 Views [facility] Imaging Services [address] [place] [address] Forearm 2 Views MR#: [id number] Acct: [id number] Name: SARA LANDRUMAGA Quiroz Rep #: [id number] : 1935 F 89 From: Nic Ozuna MD PCP: Dr. Reji Reyna MD Status: DEP AMB Study: Forearm 2 Views Date of Exam: 08/18/24 Exam# [id number] Ordering Dr: Carmella Deluca DINING HOST-Ana M PROCEDURE: FOREARM 2 VIEWS 08/18/2024 REASON FOR EXAM: FX F/U TECHNIQUE: 2 view(s) of the left forearm COMPARISON: Left forearm, 08/14/2019. FINDINGS: There is a healing greenstick fracture of the distal ulnar shaft. There is no significant angulation deformity. RAD/Forearm 2 Views IMPRESSION: Healing ulnar shaft fracture. Reading Location: [id number] CC: DINING HOST-C Carmella Deluca; Dr. Reji Reyna MD Glue Maker: Signed Normal [facility] Orthopedic Visit Reporton Orthopedic Visit Report [facility] [address] [place] [address] [address] [place] [address] OFFICE VISIT Date of Service: 08/18/24 MR#: [id number] Acct: [id number] Name: CHRISTIAN LANDRUM Rep #: [id number] : 1935 Provider: OLIVE manzo Age/Sex: 89/F Location: [facility] [place] Status: Signed Intake Vital Signs 08/13/24 13:10 [...] of mastectomy (more content not included)... Normal [facility] Forearm 2 Viewson 08-13-2024 Forearm 2 Views [facility] Imaging Services [address] [place] [address] Forearm 2 Views MR#: [id number] Acct: [id number] Name: CHRISTIAN LANDRUM Rep #: [id number] : 1935 F 89 From: Obdulia Snider MD PCP: Dr. Reji Reyna MD Status: DEP AMB Study: Forearm 2 Views Date of Exam: 08/13/24 Exam# [id number] Ordering Dr: Carmella Deluca DINING HOST-C PROCEDURE: FOREARM 2 VIEWS 08/13/2024 REASON FOR [...] the 1st carpometacarpal joint. Osteopenia. Reading Location: [facility] CC: OLIVE Deluca; Dr. Reji Reyna MD Glue Maker: Signed Normal [facility] Humerus min 2 Viewson 2024 Humerus min 2 Views [facility] Imaging Services [address] [place] [address] Humerus min 2 Views MR#: [id number] Acct: [id number] Name: CHRISTIAN LANDRUM Rep #: [id number] : 1935 F 89 From: Obdulia Snider MD PCP: Dr. Reji Reyna MD Status: DEP AMB Study: Humerus min 2 Views Date of Exam: 08/13/24 Exam# [id number] Ordering Dr: Carmella Deluca PROCEDURE: HUMERUS MIN [...] glenohumeral joint osteoarthrosis as above. Reading Location: [facility] CC: OLIVE Deluca; Dr. Reji Reyna MD Glue Maker: Signed Normal [facility] Orthopedic Visit Reporton Orthopedic Visit Report [facility] [address] [place] [address] [address] [place] [address] OFFICE VISIT Date of Service: 08/13/24 MR#: [id number] Acct: [id number] Name: CHRISTIAN LANDRUM Rep #: [id number] : 1935 Provider: OLIVE manzo Age/Sex: 89/F Location: [facility] [place] Status: Signed Intake Vital Signs 08/13/24 13:10 [...] the decisions made by me, Carmella Deluca, ILANA-C 08/13/24 1908. Part of today???s visit was documented by [...] bruising. Patient stays at facility and the DINING HOST there today reports a portable x-ray showed [...] Wrist/Hand Peña (more content not included)... Normal [facility] CT Abd/Pelvis W/WO Contrasto n 08-06-2024 CT Abd/Pelvis W/WO Contrast [facility] Imaging Services [address] [place] [address] CT Abd/Pelvis W/WO Contrast MR#: [id number] Acct: [id number] Name: CHRISTIAN LANDRUM Rep #: [id number] : 1935 F 89 From: Mallika wyatt MD PCP: Dr. Reji Reyna MD Status: REG CLI Study: CT Abd/Pelvis W/WO Contrast Date of Exam: 07/16 06/08 Exam# [id number] Ordering Dr: Hiwot Abdullahi MD PROCEDURE: CT [...] the stomach suggestive of gastritis. Reading [facility] CC: Dr. Reji Reyna MD; Dr. Hiwot Abdullahi MD Glue Maker: Signed Normal [facility] Absolute lymphocyte countOrd ered By: Reji Reyna on 08-02-2024 Lymphocytes Auto (Unsp spec) [#/Vol] 0.96 10*3/uL 0.83-4.51 [facility] Absolute neutrophil countOrd ered By: Reji Reyna on 08-02-2024 Neutrophils (Bld) [#/Vol] 4.6 10*3/uL 2.0-7.7 [facility] Anion gap in Serum or Plasma Ordered By: Reji Reyna on 08-02-2024 Anion gap [Moles/Vol] 9 mmol/L 5-15 [facility] Automated lymphocyte count a s percentage of total leukocytesOrdered By: Reji Reyna on 08-02-2024 Lymphocytes/100 WBC Auto (Unsp spec) 15.0 % Low 19-41 [facility] BUN/creatinine ratioOrdered By: Reji Reyna on 08-02-2024 Urea nitrogen/Creatinine [Mass ratio] 27.8 mg/mg High 10-20 [facility] Basophil percentageOrdered B y: Reji Reyna on 08-02-2024 Basophils/100 WBC (Bld) 0.6 % 0-1 [facility] Bilirubin, totalOrdered By: Reji Reyna on 08-02-2024 Bilirubin [Mass/Vol] 0.73 mg/dL 0.00-1.30 [facility] Carbon dioxide, total [Moles /volume] in Central venous bloodOrdered By: Reji Reyna on 08-02-2024 CO2 [Moles/Vol] 23.8 mmol/L 21.0-32.0 [facility] Chloride assayOrdered By: Angelito Reyna on 08-02-2024 Chloride [Moles/Vol] 104 mmol/L 98-108 [facility] Eosinophil percentageOrdered By: Reji Reyna on 08-02-2024 Eosinophils/100 WBC (Bld) 1.4 % 0-5 [facility] Erythrocyte distribution wid th ratioOrdered By: Reji Reyna on 08-02-2024 Erythrocyte distribution width (RBC) [Ratio] 16.2 % High 11.6-14.6 [facility] Erythrocyte distribution wid th standard deviationOrdered By: Reji Reyna on 08-02-2024 Erythrocyte distribution width (RBC) [Ratio] 58.4 fl High 35.1-43.9 [facility] Glomerular filtration rate ( GFR) estimation/1.73 sq m using serum, plasma, or whole bOrdered By: Reji Reyna on 08-02-2024 GFR/1.73 sq M.predicted among non-blacks MDRD (S/P/Bld) [Vol rate/Area] 87 mL/min/{1.73_m2} >60 [facility] Comment on above: mL/min/1.73m2 CKD-EP I Creatinine Equation (2020) Hematocrit Auto (Bld) [Volum e fraction]Ordered By: Reji Reyna on 08-02-2024 Hematocrit (Bld) [Volume fraction] 36.7 % Low 37-47 [facility] Hemoglobin measurementOrdere d By: Reji Reyna on 08-02-2024 Hemoglobin (Bld) [Mass/Vol] 12.1 g/dL 12.0-15.0 [facility] Immature granulocytes/100 WB C Auto (Bld)Ordered By: [place] Reyna on 08-02-2024 Immature granulocytes/100 WBC (Bld) 0.800 % 0.0-0.9 [facility] Comment on above: IG% - Immature Granu locytes (promyelocytes, myelocytes and metamyelocytes) > 1% indicates that a LEFT SHIFT is Present. Laboratory - Chemistry and C hemistry - challengeOrdered By: Reji Reyna on 08-02-2024 AST [Catalytic activity/Vol] 33 U/L High <32 [facility] MCV (mean corpuscular volume ) determinationOrdered By: Reji Reyna on 08-02-2024 MCV (RBC) [Entitic vol] 98.4 fL 81-99 [facility] Mean corpuscular hemoglobin (MCH) determinationOrdered By: Reji Reyna on 08-02-2024 MCH (RBC) [Entitic mass] 32.4 pg High 27.0-32.0 [facility] Mean corpuscular hemoglobin concentration (MCHC) determinationOrdered By: Reji Reyna on 08-02-2024 MCHC (RBC) [Mass/Vol] 33.0 g/dL 32-36 [facility] Mean platelet volume determi nationOrdered By: [place] Reyna on 08-02-2024 Platelet mean volume (Bld) [Entitic vol] 9.4 fL 6.2-12.0 [facility] Monocyte percentageOrdered B y: Reji Reyna on 08-02-2024 Monocytes/100 WBC (Bld) 10.5 % High 0-10 [facility] Neutrophil percentageOrdered By: Reji Reyna on 08-02-2024 Neutrophils/100 WBC (Bld) 71.7 % High 47-70 [facility] Nucleated red blood cell per centageOrdered By: Reji Reyna on 08-02-2024 Nucleated RBC/100 WBC (Bld) [Ratio] 0 % 0-5 [facility] Platelet countOrdered By: Angelito Reyna on 08-02-2024 Platelets (Bld) [#/Vol] 141 10*3/uL Low 150-450 [facility] Potassium measurement (mass/ volume)Ordered By: Reji Reyna on 08-02-2024 Potassium (Unsp spec) [Mass/Vol] 4.4 mmol/L 3.3-5.1 [facility] RBC Auto (Bld) [#/Vol]Ordere d By: Reji Reyna on 08-02-2024 RBC (Bld) [#/Vol] 3.73 10*6/uL Low 4.2-5.4 [facility] Serum creatinine measurement (mass/volume)Ordered By: Reji Reyna on 08-02-2024 Creatinine [Mass/Vol] 0.58 mg/dL Low 0.70-1.20 [facility] Serum globulin measurementOr dered By: Reji Reyna on 08-02-2024 Globulin (S) [Mass/Vol] 3.7 g/dL 2.2-4.2 [facility] Serum glucose measurement (m ass/volume)Ordered By: Reji Reyna on 08-02-2024 Glucose [Mass/Vol] 79 mg/dL 70-99 [facility] Serum or plasma alanine cheatham otransferase (ALT) measurementOrdered By: Reji Reyna on 08-02-2024 ALT [Catalytic activity/Vol] 34 U/L <35 [facility] Serum or plasma albumin yonatan urement (mass/volume)Ordered By: Reji Reyna on 08-02-2024 Albumin [Mass/Vol] 3.4 g/dL 3.4-4.8 [facility] Serum or plasma albumin/glob ulin mass ratioOrdered By: Reji Reyna on 08-02-2024 Albumin/Globulin [Mass ratio] 0.9 {ratio} 0.9-2.4 [facility] Serum or plasma alkaline shannon sphatase measurementOrdered By: Reji Reyna on 08-02-2024 ALP [Catalytic activity/Vol] 63 U/L 35-104 [facility] Serum or plasma calcium yonatan urement (mass/volume)Ordered By: Reji Reyna on 08-02-2024 Calcium [Mass/Vol] 9.2 mg/dL 7.6-11.0 [facility] Serum or plasma urea nitroge n measurement (mass/volume)Ordered By: Reji Reyna on 08-02-2024 Urea nitrogen [Mass/Vol] 16 mg/dL 4-19 [facility] Sodium levelOrdered By: Jas traceynicole Maribell on 08-02-2024 Sodium [Moles/Vol] 137 mmol/L 133-145 [facility] Total proteinOrdered By: Fredy edwardogarfield Reyna on 08-02-2024 Protein [Mass/Vol] 7.1 g/dL 5.9-8.4 [facility] White blood cell (WBC) count Ordered By: Reji Reyna 08-02-2024 WBC (Bld) [#/Vol] 6.4 10*3/uL 4.4-11.0 [facility] Clostridium difficile detect ion by polymerase chain reactionOrdered By: Reji Reyna on 07-08-2024 C. difficile DNA DEMARCUS+probe Ql (Unsp spec) [facility] Stool lactoferrin detection by immunoassayOrdered By: Reji Reyna on 07-08-2024 Lactoferrin IA Ql (Stl) [facility] International normalized rat io (INR) calculationOrdered By: Reji Reyna on 07-07-2024 INR Coag (Bld) [Relative time] 1.2 {INR} [facility] Prothrombin timeOrdered By: Reji Reyna on 07-07-2024 PT Coag (PPP) [Time] 15.5 s High 11.7-14.9 [facility] T4 freeOrdered By: Reji Reyna on 07-07-2024 Free T4 [Mass/Vol] 0.80 ng/dL 0.76-1.46 [facility] TSH DL <= 0.005 mIU/L QnOrde red By: Reji Reyna on 07-07-2024 TSH Qn 1.430 uIU/mL 0.300-4.200 [facility] Absolute lymphocyte countOrd ered By: Reji Reyna on 07-05-2024 Lymphocytes Auto (Unsp spec) [#/Vol] 0.92 10*3/uL 0.83-4.51 [facility] Absolute neutrophil countOrd ered By: Reji Reyna on 07-05-2024 Neutrophils (Bld) [#/Vol] 4.1 10*3/uL 2.0-7.7 [facility] Anion gap in Serum or Plasma Ordered By: Reji Reyna on 07-05-2024 Anion gap [Moles/Vol] 9 mmol/L 5-15 [facility] Automated lymphocyte count a s percentage of total leukocytesOrdered By: Reji Reyna on 07-05-2024 Lymphocytes/100 WBC Auto (Unsp spec) 15.9 % Low 19-41 [facility] BUN/creatinine ratioOrdered By: Reji Reyna on 07-05-2024 Urea nitrogen/Creatinine [Mass ratio] 20.6 mg/mg High 10-20 [facility] Basophil percentageOrdered B y: Reji Reyna on 07-05-2024 Basophils/100 WBC (Bld) 0.5 % 0-1 [facility] Bilirubin, totalOrdered By: Reji Reyna on 07-05-2024 Bilirubin [Mass/Vol] 0.72 mg/dL 0.00-1.30 [facility] Carbon dioxide, total [Moles /volume] in Central venous bloodOrdered By: Reji Reyna on 07-05-2024 CO2 [Moles/Vol] 24.8 mmol/L 21.0-32.0 [facility] Chloride assayOrdered By: Angelito Reyna on 07-05-2024 Chloride [Moles/Vol] 103 mmol/L 98-108 [facility] Eosinophil percentageOrdered By: Reji Reyna on 07-05-2024 Eosinophils/100 WBC (Bld) 1.2 % 0-5 [facility] Erythrocyte distribution wid th ratioOrdered By: Reji Reyna on 07-05-2024 Erythrocyte distribution width (RBC) [Ratio] 15.9 % High 11.6-14.6 [facility] Erythrocyte distribution wid th standard deviationOrdered By: Reji Reyna on 07-05-2024 Erythrocyte distribution width (RBC) [Ratio] 55.2 fl High 35.1-43.9 [facility] Glomerular filtration rate ( GFR) estimation/1.73 sq m using serum, plasma, or whole bOrdered By: Reji Reyna on 07-05-2024 GFR/1.73 sq M.predicted among non-blacks MDRD (S/P/Bld) [Vol rate/Area] 87 mL/min/{1.73_m2} >60 [facility] Comment on above: mL/min/1.73m2 CKD-EP I Creatinine Equation (2020) Hematocrit Auto (Bld) [Volum e fraction]Ordered By: Reji Reyna on 07-05-2024 Hematocrit (Bld) [Volume fraction] 31.0 % Low 37-47 [facility] Hemoglobin A1c percentageOrd ered By: Reji Reyna on 07-05-2024 HbA1c (Bld) [Mass fraction] 5.0 % <5.7 [facility] Comment on above: Normal < 5.7 % Predi abetic 5.7 - 6.4 % Diabetic >or= 6.5 % Please note range changes. Hemoglobin measurementOrdere d By: Reji Reyna on 07-05-2024 Hemoglobin (Bld) [Mass/Vol] 10.3 g/dL Low 12.0-15.0 [facility] Immature granulocytes/100 WB C Auto (Bld)Ordered By: Reji Reyna on 07-05-2024 Immature granulocytes/100 WBC (Bld) 0.700 % 0.0-0.9 [facility] Comment on above: IG% - Immature Granu locytes (promyelocytes, myelocytes and metamyelocytes) > 1% indicates that a LEFT SHIFT is Present. Laboratory - Chemistry and C hemistry - challengeOrdered By: Angelitoarline Reyna on 07-05-2024 AST [Catalytic activity/Vol] 32 U/L <32 [facility] MCV (mean corpuscular volume ) determinationOrdered By: Reji Herronrejialyssa on 07-05-2024 MCV (RBC) [Entitic vol] 95.7 fL 81-99 [facility] Mean corpuscular hemoglobin (MCH) determinationOrdered By: Reji Herronrejialyssa on 07-05-2024 MCH (RBC) [Entitic mass] 31.8 pg 27.0-32.0 [facility] Mean corpuscular hemoglobin concentration (MCHC) determinationOrdered By: Reji Reyna on 07-05-2024 MCHC (RBC) [Mass/Vol] 33.2 g/dL 32-36 [facility] Mean platelet volume determi nationOrdered By: Jasmichaelgarfield Herronrejialyssa on 07-05-2024 Platelet mean volume (Bld) [Entitic vol] 9.6 fL 6.2-12.0 [facility] Monocyte percentageOrdered B y: Reji Reyna on 07-05-2024 Monocytes/100 WBC (Bld) 11.3 % High 0-10 [facility] Neutrophil percentageOrdered By: arline Reyna on 07-05-2024 Neutrophils/100 WBC (Bld) 70.4 % High 47-70 [facility] Nucleated red blood cell per centageOrdered By: Reji Herronrejialyssa on 07-05-2024 Nucleated RBC/100 WBC (Bld) [Ratio] 0 % 0-5 [facility] Platelet countOrdered By: Angelito Reyna on 07-05-2024 Platelets (Bld) [#/Vol] 151 10*3/uL 150-450 [facility] Potassium measurement (mass/ volume)Ordered By: Reji Reyna on 07-05-2024 Potassium (Unsp spec) [Mass/Vol] 4.0 mmol/L 3.3-5.1 [facility] RBC Auto (Bld) [#/Vol]Ordere d By: Reji Reyna on 07-05-2024 RBC (Bld) [#/Vol] 3.24 10*6/uL Low 4.2-5.4 [facility] Serum creatinine measurement (mass/volume)Ordered By: Reji Reyna on 07-05-2024 Creatinine [Mass/Vol] 0.59 mg/dL Low 0.70-1.20 [facility] Serum globulin measurementOr dered By: Reji Reyna on 07-05-2024 Globulin (S) [Mass/Vol] 3.3 g/dL 2.2-4.2 [facility] Serum glucose measurement (m ass/volume)Ordered By: Reji Reyna on 07-05-2024 Glucose [Mass/Vol] 76 mg/dL 70-99 [facility] Serum or plasma alanine cheatham otransferase (ALT) measurementOrdered By: Reji Reyna on 07-05-2024 ALT [Catalytic activity/Vol] 23 U/L <35 [facility] Serum or plasma albumin yonatan urement (mass/volume)Ordered By: Reji Reyna on 07-05-2024 Albumin [Mass/Vol] 2.9 g/dL Low 3.4-4.8 [facility] Serum or plasma albumin/glob ulin mass ratioOrdered By: Reji Reyna 07-05-2024 Albumin/Globulin [Mass ratio] 0.9 {ratio} 0.9-2.4 [facility] Serum or plasma alkaline shannon sphatase measurementOrdered By: Reji Reyna 07-05-2024 ALP [Catalytic activity/Vol] 46 U/L 35-104 [facility] Serum or plasma calcium yonatan urement (mass/volume)Ordered By: Reji Reyna on 07-05-2024 Calcium [Mass/Vol] 8.9 mg/dL 7.6-11.0 [facility] Serum or plasma urea nitroge n measurement (mass/volume)Ordered By: Reji Reyna on 07-05-2024 Urea nitrogen [Mass/Vol] 12 mg/dL 4-19 [facility] Sodium levelOrdered By: Jas Reyna on 07-05-2024 Sodium [Moles/Vol] 137 mmol/L 133-145 [facility] Total proteinOrdered By: Fredy Reyna on 07-05-2024 Protein [Mass/Vol] 6.3 g/dL 5.9-8.4 [facility] White blood cell (WBC) count Ordered By: Reji Reyna on 07-05-2024 WBC (Bld) [#/Vol] 5.8 10*3/uL 4.4-11.0 [facility] Hemoglobin A1c percentageOrd ered By: Reji Reyna on 06-16-2024 HbA1c (Bld) [Mass fraction] 5.0 % Low >5.7 [facility] CBC W Auto Differential pane l (Bld)on 06-11-2024 Basophils (Bld) [#/Vol] [facility] Basophils/100 WBC (Bld) 0.3 % [facility] Differential cell count method Nom (Bld) Auto [facility] Eosinophils (Bld) [#/Vol] [facility] Eosinophils/100 WBC (Bld) 0.1 % [facility] Erythrocyte distribution width (RBC) [Ratio] 15.7 % High 11.5 - 15.0 % [facility] Hematocrit (Bld) [Volume fraction] 34.9 % Low 36.0 - 46.0 % [facility] Hemoglobin (Bld) [Mass/Vol] 11 g/dL Low 11.5 - 15.5 g/dL [facility] Immature granulocytes (Bld) [#/Vol] 0.06 10*3/uL [facility] Immature granulocytes/100 WBC (Bld) 0.8 % [facility] Interpretation and review of laboratory results Abnormal [facility] Lymphocytes (Bld) [#/Vol] 0.5 10*3/uL Low [facility] Lymphocytes/100 WBC (Bld) 7 % [facility] MCH (RBC) [Entitic mass] 30.6 pg 26.0 - 34.[address] [facility] MCHC (RBC) [Mass/Vol] 31.5 g/dL 30.5 - 36.0 g/dL [facility] MCV (RBC) [Entitic vol] 97.2 fL 80.0 - 100.[address] [facility] Monocytes (Bld) [#/Vol] 0.52 10*3/uL NINF [facility] Monocytes/100 WBC (Bld) 7.3 % [facility] Neutrophils (Bld) [#/Vol] 6 10*3/uL [facility] Neutrophils/100 WBC (Bld) 84.5 % [facility] Nucleated RBC (Bld) [#/Vol] NINF [facility] Nucleated RBC/100 WBC (Bld) [Ratio] 0 % /[address] [facility] Platelet mean volume (Bld) [Entitic vol] 9.8 fL 9.0 - 12.[address] [facility] Platelets (Bld) [#/Vol] 141 10*3/uL Low [facility] RBC (Bld) [#/Vol] 3.59 10*6/uL Low 3.90 - 5.2 0 m/uL [facility] WBC (Bld) [#/Vol] 7.11 10*3/uL [facility] Comprehensive metabolic 2000 panelOrdered By: Pam Tate on 06-11-2024 Albumin [Mass/Vol] 3.5 g/dL Low 3.9 - 4.9 g/dL [facility] ALP [Catalytic activity/Vol] 64 U/L 34 - 123 U/L [facility] ALT [Catalytic activity/Vol] 26 U/L 7 - 38 U/L [facility] Anion gap [Moles/Vol] 11 mmol/L 8 - 15 mmol/L [facility] AST [Catalytic activity/Vol] 28 U/L 13 - 35 U/L [facility] Bilirubin [Mass/Vol] 0.6 mg/dL 0.2 - 1 .3 mg/dL [facility] Calcium [Mass/Vol] 9.1 mg/dL 8.5 - 10. 2 mg/dL [facility] Chloride [Moles/Vol] 104 mmol/L 98 - 10 7 mmol/L [facility] CO2 [Moles/Vol] 23 mmol/L 22 - 30 mmol/L [facility] Creatinine [Mass/Vol] 0.59 mg/dL 0.58 - 0.96 mg/dL [facility] GFR/1.73 sq M.predicted among non-blacks MDRD (S/P/Bld) [Vol rate/Area] 87 mL/min/{1.73_m2} - PINF [facility] Comment on above: Estimated Glomerular Filtration Rate [...] 240 mg/dL High 74 - 99 mg/dL [facility] Comment on above: The [place] [employer] (ADA) provides guidance [...] Standards of Medical Care in Diabetes 2016, [place] [employer]. Diabetes Care. 2016.39(Suppl 1). Interpretation and review of laboratory results Abnormal [facility] Potassium [Moles/Vol] 4.4 mmol/L 3.7 - 5.1 mmol/L [facility] Protein [Mass/Vol] 7.3 g/dL 6.3 - 8.0 g/dL [facility] Sodium [Moles/Vol] 138 mmol/L 136 - 144 mmol/L [facility] Urea nitrogen [Mass/Vol] 18 mg/dL 7 - 21 mg/dL [facility] Absolute lymphocyte countOrd ered By: Reji Reyna on 05-31-2024 Lymphocytes Auto (Unsp spec) [#/Vol] 1.03 10*3/uL 0.83-4.51 [facility] Absolute neutrophil countOrd ered By: Reji Reyna on 05-31-2024 Neutrophils (Bld) [#/Vol] 3.8 10*3/uL 2.0-7.7 [facility] Anion gap in Serum or Plasma Ordered By: Reji Reyna on 05-31-2024 Anion gap [Moles/Vol] 9 mmol/L 5-15 [facility] Automated lymphocyte count a s percentage of total leukocytesOrdered By: Reji Reyna on 05-31-2024 Lymphocytes/100 WBC Auto (Unsp spec) 18.6 % Low 19-41 [facility] BUN/creatinine ratioOrdered By: Reji Reyna on 05-31-2024 Urea nitrogen/Creatinine [Mass ratio] 23.4 mg/mg High 10-20 [facility] Basophil percentageOrdered B y: Reji Reyna on 05-31-2024 Basophils/100 WBC (Bld) 0.5 % 0-1 [facility] Bilirubin, totalOrdered By: Reji Reyna on 05-31-2024 Bilirubin [Mass/Vol] 0.51 mg/dL 0.00-1.30 [facility] Carbon dioxide, total [Moles /volume] in Central venous bloodOrdered By: Reji Reyna on 05-31-2024 CO2 [Moles/Vol] 23.7 mmol/L 21.0-32.0 [facility] Chloride assayOrdered By: Angelito Reyna on 05-31-2024 Chloride [Moles/Vol] 105 mmol/L 98-108 [facility] Eosinophil percentageOrdered By: Reji Reyna on 05-31-2024 Eosinophils/100 WBC (Bld) 1.3 % 0-5 [facility] Erythrocyte distribution wid th (RBC) [Ratio]Ordered By: Reji Reyna on 05-31-2024 Erythrocyte distribution width (RBC) [Entitic vol] 56.2 fL High 35.1-43.9 [facility] Erythrocyte distribution wid th ratioOrdered By: Reji Reyna on 05-31-2024 Erythrocyte distribution width (RBC) [Ratio] 15.9 % High 11.6-14.6 [facility] Erythrocyte distribution wid th standard deviationOrdered By: Reji Reyna on 05-31-2024 Erythrocyte distribution width (RBC) [Ratio] 56.2 fl High 35.1-43.9 [facility] GFR/1.73 sq M.predicted lei g non-blacks MDRD (S/P/Bld) [Vol rate/Area]Ordered By: Reji Reyna on 05-31-2024 Estimated GFR (MDRD) Non-Af Amer 85 >60 [facility] Comment on above: mL/min/1.73m2 CKD-EP I Creatinine Equation (2020) Glomerular filtration rate ( GFR) estimation/1.73 sq m using serum, plasma, or whole bOrdered By: Reji Reyna on 05-31-2024 GFR/1.73 sq M.predicted among non-blacks MDRD (S/P/Bld) [Vol rate/Area] 85 mL/min/{1.73_m2} >60 [facility] Comment on above: mL/min/1.73m2 CKD-EP I Creatinine Equation (2020) Hematocrit Auto (Bld) [Volum e fraction]Ordered By: Reji Reyna on 05-31-2024 Hematocrit (Bld) [Volume fraction] 30.7 % Low 37-47 [facility] Hemoglobin measurementOrdere d By: Reji Reyna on 05-31-2024 Hemoglobin (Bld) [Mass/Vol] 9.7 g/dL Low 12.0-15.0 [facility] Immature granulocytes/100 WB C Auto (Bld)Ordered By: Reji Reyna 05-31-2024 Immature granulocytes/100 WBC (Bld) 0.400 % 0.0-0.9 [facility] Comment on above: IG% - Immature Granu locytes (promyelocytes, myelocytes and metamyelocytes) > 1% indicates that a LEFT SHIFT is Present. Laboratory - Chemistry and C hemistry - challengeOrdered By: Reji Reyna on 05-31-2024 AST [Catalytic activity/Vol] 29 U/L <32 [facility] Lymphocytes Auto (Unsp spec) [#/Vol]Ordered By: Reji Reyna 05-31-2024 Lymphocytes (Bld) [#/Vol] 1.03 10*3/uL 0.83-4.51 [facility] Lymphocytes/100 WBC Auto (Un sp spec)Ordered By: Reji Reyna on 05-31-2024 Lymphocytes/100 WBC (Bld) 18.6 % Low 19-41 [facility] MCV (mean corpuscular volume ) determinationOrdered By: Reji Reyna on 05-31-2024 MCV (RBC) [Entitic vol] 96.8 fL 81-99 [facility] Mean corpuscular hemoglobin (MCH) determinationOrdered By: Reji Reyna on 05-31-2024 MCH (RBC) [Entitic mass] 30.6 pg 27.0-32.0 [facility] Mean corpuscular hemoglobin concentration (MCHC) determinationOrdered By: Reji Reyna on 05-31-2024 MCHC (RBC) [Mass/Vol] 31.6 g/dL Low 32-36 [facility] Mean platelet volume determi nationOrdered By: Reji Reyna on 05-31-2024 Platelet mean volume (Bld) [Entitic vol] 9.8 fL 6.2-12.0 [facility] Monocyte percentageOrdered B y: Reji Reyna on 05-31-2024 Monocytes/100 WBC (Bld) 10.3 % High 0-10 [facility] Neutrophil percentageOrdered By: Reji Reyna on 05-31-2024 Neutrophils/100 WBC (Bld) 68.9 % 47-70 [facility] Nucleated red blood cell per centageOrdered By: Reji Reyna on 05-31-2024 Nucleated RBC/100 WBC (Bld) [Ratio] 0 % 0-5 [facility] Platelet countOrdered By: Angelito Reyna on 05-31-2024 Platelets (Bld) [#/Vol] 126 10*3/uL Low 150-450 [facility] Potassium (Unsp spec) [Mass/ Vol]Ordered By: Reji Reyna on 05-31-2024 Potassium [Moles/Vol] 4.0 mmol/L 3.3-5.1 [facility] Potassium measurement (mass/ volume)Ordered By: Reji Reyna on 05-31-2024 Potassium (Unsp spec) [Mass/Vol] 4.0 mmol/L 3.3-5.1 [facility] RBC Auto (Bld) [#/Vol]Ordere d By: Reji Reyna on 05-31-2024 RBC (Bld) [#/Vol] 3.17 10*6/uL Low 4.2-5.4 [facility] Serum creatinine measurement (mass/volume)Ordered By: Reji Reyna on 05-31-2024 Creatinine [Mass/Vol] 0.65 mg/dL Low 0.70-1.20 [facility] Serum globulin measurementOr dered By: Reji Reyna on 05-31-2024 Globulin (S) [Mass/Vol] 3.4 g/dL 2.2-4.2 [facility] Serum glucose measurement (m ass/volume)Ordered By: Reji Reyna on 05-31-2024 Glucose [Mass/Vol] 76 mg/dL 70-99 [facility] Serum or plasma alanine cheatham otransferase (ALT) measurementOrdered By: Reji Reyna on 05-31-2024 ALT [Catalytic activity/Vol] 29 U/L <35 [facility] Serum or plasma albumin yonatan urement (mass/volume)Ordered By: Reji Reyna on 05-31-2024 Albumin [Mass/Vol] 3.1 g/dL Low 3.4-4.8 [facility] Serum or plasma albumin/glob ulin mass ratioOrdered By: Reji Reyna on 05-31-2024 Albumin/Globulin [Mass ratio] 0.9 {ratio} 0.9-2.4 [facility] Serum or plasma alkaline shannon sphatase measurementOrdered By: Reji Reyna 05-31-2024 ALP [Catalytic activity/Vol] 49 U/L 35-104 [facility] Serum or plasma calcium yonatan urement (mass/volume)Ordered By: Reji Reyna on 05-31-2024 Calcium [Mass/Vol] 9.0 mg/dL 7.6-11.0 [facility] Serum or plasma urea nitroge n measurement (mass/volume)Ordered By: Reji Reyna on 05-31-2024 Urea nitrogen [Mass/Vol] 15 mg/dL 4-19 [facility] Sodium levelOrdered By: Jas shine Maribell on 05-31-2024 Sodium [Moles/Vol] 138 mmol/L 133-145 [facility] Total proteinOrdered By: Fredyalyssa brookegarfield Reyna on 05-31-2024 Protein [Mass/Vol] 6.5 g/dL 5.9-8.4 [facility] Vitamin D, 25-hydroxyOrdered By: Reji Reyna on 05-31-2024 Vitamin D 25-Hydroxy 32.7 ng/mL 30-100 [facility] Comment on above: Vitamin D StatusDefi ciency: <20 ng/mL (50nmol/L)Insufficiency: 20-30 ng/mL (50-75 nmol/L)Sufficiency: 30-100 ng/mL (75-250 nmol/L)Toxicity: >100 ng/mL (>250 nmol/L) White blood cell (WBC) count Ordered By: Reji Reyna on 05-31-2024 WBC (Bld) [#/Vol] 5.6 10*3/uL 4.4-11.0 [facility] Bacteria LM.HPF (Urine sed) [#/Area]Ordered By: Reji Reyna on 05-13-2024 Urine Bacteria RARE /hpf None Seen [facility] Bilirubin Test strip Ql (U)O rdered By: Reji Reyna on 05-13-2024 Bilirubin Ql (U) Negative Negative [facility] Epithelial cells.squamous LM Ql (Urine sed)Ordered By: Reji Reyna on 05-13-2024 Epithelial cells.squamous LM.HPF (Urine sed) [#/Area] 0 /[HPF] 5-10 [facility] Glucose Ql (U)Ordered By: Angelito merylshine Reyna on 05-13-2024 Urine Glucose (UA) Normal mg/dl Normal [facility] Ketones Test strip Ql (U)Ord ered By: Reji Reyna on 05-13-2024 Ketones Ql (U) Negative Negative [facility] Microscopic analysis of urin e for red blood cells (RBC)Ordered By: Reji Reyna on 05-13-2024 Microscopic analysis of urine for red blood cells (RBC) 0-5 SEEN /hpf 0-5 [facility] Urine RBC 0-5 SEEN /hpf 0-5 [facility] Mucus LM Ql (Urine sed)Order ed By: Reji Reyna on 05-13-2024 Mucus Ql (Urine sed) 0 SEEN /hpf [facility] Nitrite Test strip Ql (U)Ord ered By: Reji Reyna on 05-13-2024 Nitrite Ql (U) Positive High Negative [facility] Protein Test strip Ql (U)Ord ered By: Reji Reyna on 05-13-2024 Protein Ql (U) Negative Negative [facility] Squamous epithelial cells de tection in urine sediment by light microscopyOrdered By: Reji Reyna on 05-13-2024 Epithelial cells.squamous LM Ql (Urine sed) 0-5 SEEN /hpf 5-10 [facility] Urine blood detectionOrdered By: Reji Reyna on 05-13-2024 Urine Occult Blood 10 /ul High Negative [facility] Urine clarityOrdered By: Fredy Reyna on 05-13-2024 Clarity (U) Clear Clear [facility] Urine color determinationOrd ered By: Reji Reyna on 05-13-2024 Color (U) Yellow Yellow [facility] Urine cultureOrdered By: Fredy Reyna on 05-13-2024 Bacteria identified Cx Nom (U) Escherichia coli Abnormal [facility] Urine glucose detectionOrder ed By: Reji Reyna on 05-13-2024 Glucose Ql (U) Normal mg/dl Normal [facility] Urine leukocyte esterase det ection by dipstickOrdered By: Reji Reyna on 05-13-2024 Leukocyte esterase Test strip Ql (U) 100 /ul High Negative [facility] Urine pHOrdered By: Deloris Reyna on 05-13-2024 pH (U) 6.5 [pH] 5.0 - 8.0 [facility] Urine sediment bacteria coun t by microscopy (number/high power field)Ordered By: Jamisongarfield Herronrejialyssa on 05-13-2024 Bacteria LM.HPF (Urine sed) [#/Area] RARE /hpf None Seen [facility] Urine specific gravity measu rementOrdered By: Reji Ramirezalyssa on 05-13-2024 Specific gravity (U) [Rel density] 1.010 1.002-1.030 [facility] Urine urobilinogen measureme ntOrdered By: Angelitomerylshine Ramirezalyssa on 05-13-2024 Urobilinogen Ql (U) Normal mg/dl Normal [facility] Urobilinogen Ql (U)Ordered B y: Reji Reyna on 05-13-2024 Urine Urobilinogen Normal mg/dl Normal [facility] White blood cell countOrdere d By: Reji Ramirezalyssa on 05-13-2024 Urine WBC 0-5 SEEN /hpf 0-5 [facility] White blood cell count 0-5 SEEN /hpf 0-5 [facility] Absolute lymphocyte countOrd ered By: Reji Ramirezalyssa on 05-03-2024 Lymphocytes Auto (Unsp spec) [#/Vol] 1.13 10*3/uL 0.83-4.51 [facility] Absolute neutrophil countOrd ered By: Jamisongarfield Jamesalyssa on 05-03-2024 Neutrophils (Bld) [#/Vol] 5.1 10*3/uL 2.0-7.7 [facility] Albumin to globulin ratioOrd ered By: Reji Ramirezalyssa on 05-03-2024 Albumin/Globulin [Mass ratio] 0.5 {ratio} Low 0.9-2.4 [facility] Automated lymphocyte count a s percentage of total leukocytesOrdered By: Jasmichaelgarfield Herronrejialyssa on 05-03-2024 Lymphocytes/100 WBC Auto (Unsp spec) 16.1 % Low 19-41 [facility] Basophil percentageOrdered B y: Reji Reyna on 05-03-2024 Basophils/100 WBC (Bld) 0.6 % 0-1 [facility] Bilirubin Test strip Ql (U)O rdered By: Reji Ramirezalyssa on 05-03-2024 Bilirubin Ql (U) Negative Negative [facility] Bilirubin, totalOrdered By: Reji Reyna on 05-03-2024 Bilirubin [Mass/Vol] 0.60 mg/dL 0.20-1.00 [facility] Comment on above: For patients on eltr ombopag therapy, use of Dimension [place] TBIL is not recommended. Blood urea nitrogen (BUN)/cr eatinine ratioOrdered By: Reji Reyna on 05-03-2024 Urea nitrogen/Creatinine [Mass ratio] 22.8 mg/mg High 10-20 [facility] Carbon dioxide measurementOr dered By: Reji Reyna on 05-03-2024 CO2 [Moles/Vol] 26.0 mmol/L 21.0-32.0 [facility] Chloride measurementOrdered By: Reji Reyna on 05-03-2024 Chloride [Moles/Vol] 108 mmol/L High 98-107 [facility] Eosinophil percentageOrdered By: Reji Reyna on 05-03-2024 Eosinophils/100 WBC (Bld) 1.1 % 0-5 [facility] Erythrocyte distribution wid th (RBC) [Ratio]Ordered By: Reji Reyna on 05-03-2024 Erythrocyte distribution width (RBC) [Entitic vol] 62.4 fL High 35.1-43.9 [facility] Erythrocyte distribution wid th ratioOrdered By: Reji Reyna on 05-03-2024 Erythrocyte distribution width (RBC) [Ratio] 17.4 % High 11.6-14.6 [facility] Erythrocyte distribution wid th standard deviationOrdered By: Reji Reyna on 05-03-2024 Erythrocyte distribution width (RBC) [Ratio] 62.4 fl High 35.1-43.9 [facility] Estimated glomerular filtrat ion rate (GFR) AmericanOrdered By: Reji Reyna on 05-03-2024 Estimated GFR (MDRD) Amer 95 mL/min >60 [facility] Comment on above: GFR Calc Glomerular filtration rate ( GFR) estimationOrdered By: Reji Reyna on 05-03-2024 Estimated GFR (MDRD) Non-Af Amer 78 mL/min >60 [facility] Comment on above: Non- GFR Calc GFR/1.73 sq M.predicted among non-blacks MDRD (S/P/Bld) [Vol rate/Area] 78 mL/min/{1.73_m2} >60 [facility] Comment on above: Non- GFR Calc Glucose Ql (U)Ordered By: Angelito Reyna on 05-03-2024 Urine Glucose (UA) Normal mg/dl Normal [facility] Glucose measurementOrdered B y: Angelitomerylshine Reyna on 05-03-2024 Glucose [Mass/Vol] 69 mg/dL Low 74-106 [facility] Hematocrit Auto (Bld) [Volum e fraction]Ordered By: Reji Reyna on 05-03-2024 Hematocrit (Bld) [Volume fraction] 29.8 % Low 37-47 [facility] Hemoglobin measurementOrdere d By: Reji Reyna on 05-03-2024 Hemoglobin (Bld) [Mass/Vol] 9.1 g/dL Low 12.0-15.0 [facility] Immature granulocytes/100 WB C Auto (Bld)Ordered By: Reji Reyna on 05-03-2024 Immature granulocytes/100 WBC (Bld) 0.400 % 0.0-0.9 [facility] Comment on above: IG% - Immature Granu locytes (promyelocytes, myelocytes and metamyelocytes) > 1% indicates that a LEFT SHIFT is Present. Ketones Test strip Ql (U)Ord ered By: Reji Reyna on 05-03-2024 Ketones Ql (U) Negative Negative [facility] Laboratory - Chemistry and C hemistry - challengeOrdered By: Reji Reyna on 05-03-2024 AST [Catalytic activity/Vol] 34 U/L 15-37 [facility] Lymphocytes Auto (Unsp spec) [#/Vol]Ordered By: Reji Reyna on 05-03-2024 Lymphocytes (Bld) [#/Vol] 1.13 10*3/uL 0.83-4.51 [facility] Lymphocytes/100 WBC Auto (Un sp spec)Ordered By: Reji Reyna on 05-03-2024 Lymphocytes/100 WBC (Bld) 16.1 % Low 19-41 [facility] MCV (mean corpuscular volume ) determinationOrdered By: Jasmichaelgarfield Herronrejialyssa on 05-03-2024 MCV (RBC) [Entitic vol] 99.0 fL 81-99 [facility] Mean corpuscular hemoglobin (MCH) determinationOrdered By: Reji Herronrejialyssa on 05-03-2024 MCH (RBC) [Entitic mass] 30.2 pg 27.0-32.0 [facility] Mean corpuscular hemoglobin concentration (MCHC) determinationOrdered By: Reji Herronrejialyssa on 05-03-2024 MCHC (RBC) [Mass/Vol] 30.5 g/dL Low 32-36 [facility] Mean platelet volume determi nationOrdered By: Reji Herronrejialyssa on 05-03-2024 Platelet mean volume (Bld) [Entitic vol] 9.4 fL 6.2-12.0 [facility] Monocyte percentageOrdered B y: Jasmichaelgarfield Herronrejialyssa on 05-03-2024 Monocytes/100 WBC (Bld) 9.7 % 0-10 [facility] Neutrophil percentageOrdered By: Jasmichaelgarfield Herronrejialyssa on 05-03-2024 Neutrophils/100 WBC (Bld) 72.1 % High 47-70 [facility] Nitrite Test strip Ql (U)Ord ered By: Reji Herronrejialyssa on 05-03-2024 Nitrite Ql (U) Negative Negative [facility] Nucleated red blood cell per centageOrdered By: Jasmichaelgarfield Herronrejialyssa on 05-03-2024 Nucleated RBC/100 WBC (Bld) [Ratio] 0 % 0-5 [facility] Platelet countOrdered By: Angelito brunildagarfield Herronrejialyssa on 05-03-2024 Platelets (Bld) [#/Vol] 163 10*3/uL 150-450 [facility] Potassium measurementOrdered By: Reji Reyna on 05-03-2024 Potassium [Moles/Vol] 4.3 mmol/L 3.5-5.1 [facility] Protein Test strip Ql (U)Ord ered By: Reji Reyna on 05-03-2024 Protein Ql (U) Negative Negative [facility] RBC Auto (Bld) [#/Vol]Ordere d By: Reji Reyna on 05-03-2024 RBC (Bld) [#/Vol] 3.01 10*6/uL Low 4.2-5.4 [facility] Serum anion gap measurementO rdered By: Reji Reyna on 05-03-2024 Anion gap [Moles/Vol] 7 mmol/L 5-15 [facility] Serum globulin measurementOr dered By: Reji Reyna on 05-03-2024 Globulin (S) [Mass/Vol] 4.8 g/dL High 2.2-4.2 [facility] Serum or plasma alanine cheatham otransferase (ALT) measurementOrdered By: Reji Reyna on 05-03-2024 ALT [Catalytic activity/Vol] 31 U/L 13-56 [facility] Serum or plasma albumin yonatan urement (mass/volume)Ordered By: Reji Reyna on 05-03-2024 Albumin [Mass/Vol] 2.3 g/dL Low 3.2-5.0 [facility] Serum or plasma alkaline shannon sphatase measurementOrdered By: Reji Reyna on 05-03-2024 ALP [Catalytic activity/Vol] 57 U/L 45-117 [facility] Serum or plasma calcium yonatan urement (mass/volume)Ordered By: Reji Reyna on 05-03-2024 Calcium [Mass/Vol] 8.9 mg/dL 8.5-10.1 [facility] Serum or plasma creatinine m easurement (mass/volume)Ordered By: Reji Reyna on 05-03-2024 Creatinine [Mass/Vol] 0.74 mg/dL 0.55-1.02 [facility] Comment on above: The validity of the calculated GFR & GFRAA in patients over 70 years has not been determined. Clinical correlation is essential. Serum or plasma thyroid stim ulating hormone (TSH) measurement (units/volume)Ordered By: eRji Reyna on 05-03-2024 TSH Qn 1.850 uIU/mL 0.358-3.740 [facility] Serum or plasma urea nitroge n measurement (mass/volume)Ordered By: Reji Reyna on 05-03-2024 Urea nitrogen [Mass/Vol] 17 mg/dL 7-18 [facility] Sodium levelOrdered By: Jas Reyna on 05-03-2024 Sodium [Moles/Vol] 141 mmol/L 136-145 [facility] TSH QnOrdered By: Reji Reyna on 05-03-2024 Thyroid Stimulating Hormone (TSH) 1.850 uIU/mL 0.358-3.740 [facility] Total proteinOrdered By: Fredy Reyna on 05-03-2024 Protein [Mass/Vol] 7.1 g/dL 6.4-8.2 [facility] Urine blood detectionOrdered By: Reji Reyna on 05-03-2024 Urine Occult Blood 50 /ul High Negative [facility] Urine clarityOrdered By: Fredy Reyna on 05-03-2024 Clarity (U) Sl. Cloudy Clear [facility] Urine color determinationOrd ered By: Reji Reyna on 05-03-2024 Color (U) Yellow Yellow [facility] Urine cultureOrdered By: Fredy Reyna on 05-03-2024 Bacteria identified Cx Nom (U) Presumptive E. coli Abnormal [facility] Urine glucose detectionOrder ed By: Reji Reyna on 05-03-2024 Glucose Ql (U) Normal mg/dl Normal [facility] Urine leukocyte esterase det ection by dipstickOrdered By: Reji Reyna on 05-03-2024 Leukocyte esterase Test strip Ql (U) 500 /ul High Negative [facility] Urine pHOrdered By: Deloris Reyna on 05-03-2024 pH (U) 6.5 [pH] 5.0 - 8.0 [facility] Urine specific gravity measu rementOrdered By: Reji Reyna on 05-03-2024 Specific gravity (U) [Rel density] 1.010 1.002-1.030 [facility] Urine urobilinogen measureme ntOrdered By: Reji Reyna on 05-03-2024 Urobilinogen Ql (U) Normal mg/dl Normal [facility] Urobilinogen Ql (U)Ordered B y: Reji Reyna on 05-03-2024 Urine Urobilinogen Normal mg/dl Normal [facility] White blood cell (WBC) count Ordered By: Reji Reyna on 05-03-2024 WBC (Bld) [#/Vol] 7.0 10*3/uL 4.4-11.0 [facility] Copper, serumOrdered By: Fredy Reyna on 04-23-2024 Serum Copper 93 ug/dL 80-158 [facility] Comment on above: Detection Limit = 5P erformed at: [facility] [id number] Director: Jeremiah Bates MD, Phone: [phone] Absolute lymphocyte countOrd ered By: Reji Reyna on 04-05-2024 Lymphocytes Auto (Unsp spec) [#/Vol] 0.90 10*3/uL 0.83-4.51 [facility] Absolute neutrophil countOrd ered By: Reji Reyna on 04-05-2024 Neutrophils (Bld) [#/Vol] 3.6 10*3/uL 2.0-7.7 [facility] Albumin to globulin ratioOrd ered By: Reji Reyna on 04-05-2024 Albumin/Globulin [Mass ratio] 0.5 {ratio} Low 0.9-2.4 [facility] Automated lymphocyte count a s percentage of total leukocytesOrdered By: Reji Ramirezalyssa on 04-05-2024 Lymphocytes/100 WBC Auto (Unsp spec) 17.3 % Low 19-41 [facility] Basophil percentageOrdered B y: Reji Reyna on 04-05-2024 Basophils/100 WBC (Bld) 0.8 % 0-1 [facility] Bilirubin, totalOrdered By: Reji Reyna on 04-05-2024 Bilirubin [Mass/Vol] 0.60 mg/dL 0.20-1.00 [facility] Comment on above: For patients on eltr ombopag therapy, use of Dimension [place] TBIL is not recommended. Blasts/100 WBC (Bld)Ordered By: Reji Reyna on 04-05-2024 Blast Cells % 0.04 % High 0-0 [facility] Blood band neutrophil count as percentage of total leukocytesOrdered By: Efmerylonggarfield Ramireze on 04-05-2024 Band form neutrophils/100 WBC (Bld) 0.04 % 0-5 [facility] Blood basophils/100 leukocyt esOrdered By: Efewongbe Jamese on 04-05-2024 Basophils/100 WBC (Bld) 0.04 % 0-1 [facility] Blood blasts/100 leukocytesO rdered By: Efewongbe Maribell on 04-05-2024 Blasts/100 WBC (Bld) 0.04 % High 0-0 [facility] Blood eosinophils/100 leukoc ytesOrdered By: Efewongbe Jamese on 04-05-2024 Eosinophils/100 WBC (Bld) 0.04 % 0-5 [facility] Blood leukocytes other/100 l eukocytesOrdered By: Efmerylongbe Jamese on 04-05-2024 WBC other/100 WBC (Bld) 0.04 % [facility] Blood lymphocytes/100 leukoc ytesOrdered By: Efewongbe Jamese on 04-05-2024 Lymphocytes/100 WBC (Bld) 0.04 % Low 19-41 [facility] Blood manual differential co mment interpretation (narrative result)Ordered By: Reji Reyna on 04-05-2024 Manual differential comment [place] (Bld) [Interp] SCANNED [facility] Blood metamyelocytes/100 bailee kocytesOrdered By: Efewongbe Jamese on 04-05-2024 Metamyelocytes/100 WBC (Bld) 0.04 % 0-1 [facility] Blood monocytes/100 leukocyt esOrdered By: Efewongbe Oleghe on 04-05-2024 Monocytes/100 WBC (Bld) 0.04 % 0-10 [facility] Blood promyelocytes/100 leuk ocytesOrdered By: Efewongbe Jamese on 04-05-2024 Promyelocytes/100 WBC (Bld) 0.04 % High 0-0 [facility] Blood segmented neutrophils/ 100 leukocytesOrdered By: Reji Reyna on 04-05-2024 Segmented neutrophils/100 WBC (Bld) 0.04 % Low 47-70 [facility] Blood urea nitrogen (BUN)/cr eatinine ratioOrdered By: Reji Reyna on 04-05-2024 Urea nitrogen/Creatinine [Mass ratio] 23.3 mg/mg High 10-20 [facility] Carbon dioxide measurementOr dered By: Reji Reyna on 04-05-2024 CO2 [Moles/Vol] 27.0 mmol/L 21.0-32.0 [facility] Cells counted Molgen (Bld/Ti ss) [#]Ordered By: Reji Reyna on 04-05-2024 Differential Total Cells Counted 0.04 MANUAL DIFF [facility] Chloride measurementOrdered By: Reji Reyna on 04-05-2024 Chloride [Moles/Vol] 108 mmol/L High 98-107 [facility] Eosinophil percentageOrdered By: Reji Reyna on 04-05-2024 Eosinophils/100 WBC (Bld) 1.3 % 0-5 [facility] Erythrocyte distribution wid th (RBC) [Ratio]Ordered By: Reji Reyna on 04-05-2024 Erythrocyte distribution width (RBC) [Entitic vol] 67.1 fL High 35.1-43.9 [facility] Erythrocyte distribution wid th ratioOrdered By: Reji Reyna on 04-05-2024 Erythrocyte distribution width (RBC) [Ratio] 18.7 % High 11.6-14.6 [facility] Erythrocyte distribution wid th standard deviationOrdered By: Reji Reyna on 04-05-2024 Erythrocyte distribution width (RBC) [Ratio] 67.1 fl High 35.1-43.9 [facility] Estimated glomerular filtrat ion rate (GFR) AmericanOrdered By: Reji Reyna on 04-05-2024 Estimated GFR (MDRD) Amer 104 mL/min >60 [facility] Comment on above: GFR Calc Glomerular filtration rate ( GFR) estimationOrdered By: Reji Reyna on 04-05-2024 Estimated GFR (MDRD) Non-Af Amer 86 mL/min >60 [facility] Comment on above: Non- GFR Calc GFR/1.73 sq M.predicted among non-blacks MDRD (S/P/Bld) [Vol rate/Area] 86 mL/min/{1.73_m2} >60 [facility] Comment on above: Non- GFR Calc Glucose measurementOrdered B y: Reji Reyna on 04-05-2024 Glucose [Mass/Vol] 70 mg/dL Low 74-106 [facility] Hematocrit Auto (Bld) [Volum e fraction]Ordered By: Reji Reyna on 04-05-2024 Hematocrit (Bld) [Volume fraction] 26.8 % Low 37-47 [facility] Hemoglobin measurementOrdere d By: Reji Reyna on 04-05-2024 Hemoglobin (Bld) [Mass/Vol] 8.9 g/dL Low 12.0-15.0 [facility] Immature granulocytes/100 WB C Auto (Bld)Ordered By: Reji Reyna on 04-05-2024 Immature granulocytes/100 WBC (Bld) 0.600 % 0.0-0.9 [facility] Comment on above: IG% - Immature Granu locytes (promyelocytes, myelocytes and metamyelocytes) > 1% indicates that a LEFT SHIFT is Present. Laboratory - Chemistry and C hemistry - challengeOrdered By: Reji Reyna on 04-05-2024 AST [Catalytic activity/Vol] 33 U/L 15-37 [facility] Laboratory - Hematology and Cell countsOrdered By: Reji Reyna on 04-05-2024 Anisocytosis Ql (Bld) 2+ [facility] Lymphocytes Auto (Unsp spec) [#/Vol]Ordered By: Reji Reyna on 04-05-2024 Lymphocytes (Bld) [#/Vol] 0.90 10*3/uL 0.83-4.51 [facility] Lymphocytes/100 WBC Auto (Un sp spec)Ordered By: Reji Reyna on 04-05-2024 Lymphocytes/100 WBC (Bld) 17.3 % Low 19-41 [facility] MCV (mean corpuscular volume ) determinationOrdered By: Reji Reyna on 04-05-2024 MCV (RBC) [Entitic vol] 99.6 fL High 81-99 [facility] Manual differential comment [place] (Bld) [Interp]Ordered By: Reji Reyna on 04-05-2024 Differential Comment SCANNED [facility] Mean corpuscular hemoglobin (MCH) determinationOrdered By: Reji Reyna on 04-05-2024 MCH (RBC) [Entitic mass] 33.1 pg High 27.0-32.0 [facility] Mean corpuscular hemoglobin concentration (MCHC) determinationOrdered By: Reji Reyna on 04-05-2024 MCHC (RBC) [Mass/Vol] 33.2 g/dL 32-36 [facility] Mean platelet volume determi nationOrdered By: Reji Reyna on 04-05-2024 Platelet mean volume (Bld) [Entitic vol] 9.9 fL 6.2-12.0 [facility] Monocyte percentageOrdered B y: Reji Reyna on 04-05-2024 Monocytes/100 WBC (Bld) 10.4 % High 0-10 [facility] Myelocyte %Ordered By: Matias Reyna on 04-05-2024 Myelocytes/100 WBC (Bld) 0.04 % High 0-0 [facility] Neutrophil percentageOrdered By: Reji Reyna on 04-05-2024 Neutrophils/100 WBC (Bld) 69.6 % 47-70 [facility] Nucleated red blood cell per centageOrdered By: Reji Reyna on 04-05-2024 Nucleated RBC/100 WBC (Bld) [Ratio] 0 % 0-5 [facility] Plasma cell percentageOrdere d By: Reji Reyna on 04-05-2024 Plasma Cells % (manual) 0.04 % [facility] Platelet countOrdered By: Angelito Reyna on 04-05-2024 Platelets (Bld) [#/Vol] 163 10*3/uL 150-450 [facility] Potassium measurementOrdered By: Reji Reyna on 04-05-2024 Potassium [Moles/Vol] 4.0 mmol/L 3.5-5.1 [facility] Promyelocytes/100 WBC (Bld)O rdered By: Reji Reyna on 04-05-2024 Promyelocytes % 0.04 % High 0-0 [facility] RBC Auto (Bld) [#/Vol]Ordere d By: Reji Reyna on 04-05-2024 RBC (Bld) [#/Vol] 2.69 10*6/uL Low 4.2-5.4 [facility] Segmented neutrophils/100 WB C (Bld)Ordered By: Reji Reyna on 04-05-2024 Neutrophils/100 WBC (Bld) 0.04 % Low 47-70 [facility] Serum anion gap measurementO rdered By: Reji Reyna on 04-05-2024 Anion gap [Moles/Vol] 4 mmol/L Low 5-15 [facility] Serum globulin measurementOr dered By: Reji Reyna on 04-05-2024 Globulin (S) [Mass/Vol] 5.1 g/dL High 2.2-4.2 [facility] Serum or plasma alanine cheatham otransferase (ALT) measurementOrdered By: Reji Reyna on 04-05-2024 ALT [Catalytic activity/Vol] 28 U/L 13-56 [facility] Serum or plasma albumin yonatan urement (mass/volume)Ordered By: Reji Reyna on 04-05-2024 Albumin [Mass/Vol] 2.3 g/dL Low 3.2-5.0 [facility] Serum or plasma alkaline shannon sphatase measurementOrdered By: Reji Reyna on 04-05-2024 ALP [Catalytic activity/Vol] 64 U/L 45-117 [facility] Serum or plasma calcium yonatan urement (mass/volume)Ordered By: Reji Reyna on 04-05-2024 Calcium [Mass/Vol] 8.8 mg/dL 8.5-10.1 [facility] Serum or plasma creatinine m easurement (mass/volume)Ordered By: Reji Reyna on 04-05-2024 Creatinine [Mass/Vol] 0.69 mg/dL 0.55-1.02 [facility] Comment on above: The validity of the calculated GFR & GFRAA in patients over 70 years has not been determined. Clinical correlation is essential. Serum or plasma urea nitroge n measurement (mass/volume)Ordered By: Reji Reyna on 04-05-2024 Urea nitrogen [Mass/Vol] 16 mg/dL 7-18 [facility] Sodium levelOrdered By: Jas Reyna on 04-05-2024 Sodium [Moles/Vol] 139 mmol/L 136-145 [facility] Total cell countOrdered By: Reji Reyna on 04-05-2024 Cells counted Molgen (Bld/Tiss) [#] 0.04 MANUAL DIFF [facility] Total proteinOrdered By: Fredy Reyna on 04-05-2024 Protein [Mass/Vol] 7.4 g/dL 6.4-8.2 [facility] WBC other/100 WBC (Bld)Order ed By: Reji Reyna on 04-05-2024 Other Cells % 0.04 % [facility] White blood cell (WBC) count Ordered By: Reji Reyna on 04-05-2024 WBC (Bld) [#/Vol] 5.2 10*3/uL 4.4-11.0 [facility] [id number] DOrdered By: Alyssa Reyna on 03-02-2024 Vitamin D 25-Hydroxy 35.7 ng/mL [facility] Comment on above: Vitamin D 25(OH) Sta tus Range Deficiency <20 ng/mL (50nmol/L) Insufficiency 20 - 30 ng/mL (50 - 75 nmol/L) Sufficiency 30 - 100 ng/mL (75 - 250 nmol/L) Toxicity >100 ng/mL (>250 nmol/L) Absolute neutrophil countOrd ered By: Reji Reyna on 03-01-2024 Neutrophils (Bld) [#/Vol] 4.2 10*3/uL 2.0-7.7 [facility] Albumin to globulin ratioOrd ered By: Angelitomerylmichaelgarfield Herronrejialyssa on 03-01-2024 Albumin/Globulin [Mass ratio] 0.4 {ratio} Low 0.9-2.4 [facility] Basophil percentageOrdered B y: Jasmichaelgarfield Herronjodi on 03-01-2024 Basophils/100 WBC (Bld) 0.7 % 0-1 [facility] Bilirubin, totalOrdered By: Reji Reyna on 03-01-2024 Bilirubin [Mass/Vol] 0.50 mg/dL 0.20-1.00 [facility] Comment on above: For patients on eltr ombopag therapy, use of Dimension [place] TBIL is not recommended. Blood urea nitrogen (BUN)/cr eatinine ratioOrdered By: Reji Reyna on 03-01-2024 Urea nitrogen/Creatinine [Mass ratio] 20.9 mg/mg High 10-20 [facility] Carbon dioxide measurementOr dered By: Reji Reyna on 03-01-2024 CO2 [Moles/Vol] 22.0 mmol/L 21.0-32.0 [facility] Chloride measurementOrdered By: Reji Reyna on 03-01-2024 Chloride [Moles/Vol] 108 mmol/L High 98-107 [facility] Eosinophil percentageOrdered By: Reji Reyna on 03-01-2024 Eosinophils/100 WBC (Bld) 1.3 % 0-5 [facility] Erythrocyte distribution wid th (RBC) [Ratio]Ordered By: Reji Reyna on 03-01-2024 Erythrocyte distribution width (RBC) [Entitic vol] 56.0 fL High 35.1-43.9 [facility] Erythrocyte distribution wid th ratioOrdered By: Reji Reyna on 03-01-2024 Erythrocyte distribution width (RBC) [Ratio] 15.8 % High 11.6-14.6 [facility] Estimated glomerular filtrat ion rate (GFR) AmericanOrdered By: Reji Reyna on 03-01-2024 Estimated GFR (MDRD) Amer 107 mL/min >60 [facility] Comment on above: GFR Calc Glomerular filtration rate ( GFR) estimationOrdered By: Reji Reyna on 03-01-2024 Estimated GFR (MDRD) Non-Af Amer 88 mL/min >60 [facility] Comment on above: Non- GFR Calc Glucose measurementOrdered B y: Jamisongarfield Herronrejialyssa on 03-01-2024 Glucose [Mass/Vol] 68 mg/dL Low 74-106 [facility] Hematocrit Auto (Bld) [Volum e fraction]Ordered By: Reji Reyna on 03-01-2024 Hematocrit (Bld) [Volume fraction] 28.3 % Low 37-47 [facility] Hemoglobin measurementOrdere d By: Angelitomerylmichaelgarfield Herronrejialyssa on 03-01-2024 Hemoglobin (Bld) [Mass/Vol] 8.3 g/dL Low 12.0-15.0 [facility] Immature granulocytes/100 WB C Auto (Bld)Ordered By: Reji Reyna on 03-01-2024 Immature granulocytes/100 WBC (Bld) 0.700 % 0.0-0.9 [facility] Comment on above: IG% - Immature Granu locytes (promyelocytes, myelocytes and metamyelocytes) > 1% indicates that a LEFT SHIFT is Present. Laboratory - Chemistry and C hemistry - challengeOrdered By: Reji Reyna on 03-01-2024 AST [Catalytic activity/Vol] 34 U/L 15-37 [facility] Lymphocytes Auto (Unsp spec) [#/Vol]Ordered By: Reji Reyna on 03-01-2024 Lymphocytes (Bld) [#/Vol] 1.02 10*3/uL 0.83-4.51 [facility] Lymphocytes/100 WBC Auto (Un sp spec)Ordered By: Angelitoarline Herronrejialyssa on 03-01-2024 Lymphocytes/100 WBC (Bld) 16.9 % Low 19-41 [facility] MCV (mean corpuscular volume ) determinationOrdered By: Reji Reyna on 03-01-2024 MCV (RBC) [Entitic vol] 99.6 fL High 81-99 [facility] Mean corpuscular hemoglobin (MCH) determinationOrdered By: Efmerylongbe Jamese on 03-01-2024 MCH (RBC) [Entitic mass] 29.2 pg 27.0-32.0 [facility] Mean corpuscular hemoglobin concentration (MCHC) determinationOrdered By: Efewongbe Gopalghe on 03-01-2024 MCHC (RBC) [Mass/Vol] 29.3 g/dL Low 32-36 [facility] Mean platelet volume determi nationOrdered By: Efewongbe Oleghe on 03-01-2024 Platelet mean volume (Bld) [Entitic vol] 10.1 fL 6.2-12.0 [facility] Monocyte percentageOrdered B y: Efewongbe Oleghe on 03-01-2024 Monocytes/100 WBC (Bld) 11.9 % High 0-10 [facility] Neutrophil percentageOrdered By: Efmerylongbe Oleghe on 03-01-2024 Neutrophils/100 WBC (Bld) 68.5 % 47-70 [facility] Nucleated red blood cell per centageOrdered By: Efewongbe Oleghe on 03-01-2024 Nucleated RBC/100 WBC (Bld) [Ratio] 0.7 % 0-5 [facility] Platelet countOrdered By: Ef merylongbe Gopalghe on 03-01-2024 Platelets (Bld) [#/Vol] 217 10*3/uL 150-450 [facility] Potassium measurementOrdered By: Efmerylongbe Jamese on 03-01-2024 Potassium [Moles/Vol] 4.0 mmol/L 3.5-5.1 [facility] RBC Auto (Bld) [#/Vol]Ordere d By: Efmerylongbe Gopalghe on 03-01-2024 RBC (Bld) [#/Vol] 2.84 10*6/uL Low 4.2-5.4 [facility] Serum anion gap measurementO rdered By: Efewongbe Oleghe on 03-01-2024 Anion gap [Moles/Vol] 7 mmol/L 5-15 [facility] Serum globulin measurementOr dered By: Efmerylongbe Jamese on 03-01-2024 Globulin (S) [Mass/Vol] 5.7 g/dL High 2.2-4.2 [facility] Serum or plasma alanine cheatham otransferase (ALT) measurementOrdered By: Reji Reyna on 03-01-2024 ALT [Catalytic activity/Vol] 19 U/L 13-56 [facility] Serum or plasma albumin yonatan urement (mass/volume)Ordered By: Reji Herronrejialyssa 03-01-2024 Albumin [Mass/Vol] 2.2 g/dL Low 3.2-5.0 [facility] Serum or plasma alkaline shannon sphatase measurementOrdered By: Reji Herronrejialyssa 03-01-2024 ALP [Catalytic activity/Vol] 63 U/L 45-117 [facility] Serum or plasma calcium yonatan urement (mass/volume)Ordered By: Jasmichaelgarfield Herronrejialyssa on 03-01-2024 Calcium [Mass/Vol] 8.8 mg/dL 8.5-10.1 [facility] Serum or plasma creatinine m easurement (mass/volume)Ordered By: Reji Reyna 03-01-2024 Creatinine [Mass/Vol] 0.67 mg/dL 0.55-1.02 [facility] Comment on above: The validity of the calculated GFR & GFRAA in patients over 70 years has not been determined. Clinical correlation is essential. Serum or plasma urea nitroge n measurement (mass/volume)Ordered By: Reji Reyna 03-01-2024 Urea nitrogen [Mass/Vol] 14 mg/dL 7-18 [facility] Sodium levelOrdered By: Jas traceynicole Maribell on 03-01-2024 Sodium [Moles/Vol] 137 mmol/L 136-145 [facility] Total proteinOrdered By: Fredy edwardogarfield Herronrejialyssa on 03-01-2024 Protein [Mass/Vol] 7.9 g/dL 6.4-8.2 [facility] White blood cell (WBC) count Ordered By: Reji Herronrejialyssa on 03-01-2024 WBC (Bld) [#/Vol] 6.1 10*3/uL 4.4-11.0 [facility] CBC W Auto Differential pane l (Bld)on 02-24-2024 Basophils (Bld) [#/Vol] 0.04 10*3/uL [facility] Basophils/100 WBC (Bld) 0.4 % [facility] Differential cell count method Nom (Bld) Auto [facility] Eosinophils (Bld) [#/Vol] 0.04 10*3/uL [facility] Eosinophils/100 WBC (Bld) 0.4 % [facility] Erythrocyte distribution width (RBC) [Ratio] 15.2 % High 11.5 - 15.0 % [facility] Hematocrit (Bld) [Volume fraction] 28.3 % Low 36.0 - 46.0 % [facility] Hemoglobin (Bld) [Mass/Vol] 8.5 g/dL Low 11.5 - 15.5 g/dL [facility] Immature granulocytes (Bld) [#/Vol] 0.05 10*3/uL [facility] Immature granulocytes/100 WBC (Bld) 0.5 % [facility] Interpretation and review of laboratory results Abnormal [facility] Lymphocytes (Bld) [#/Vol] 0.92 10*3/uL Low [facility] Lymphocytes/100 WBC (Bld) 9.7 % [facility] MCH (RBC) [Entitic mass] 28.1 pg 26.0 - 34.[address] [facility] MCHC (RBC) [Mass/Vol] 30.0 g/dL Low 30.5 - 36.0 g/dL [facility] MCV (RBC) [Entitic vol] 93.4 fL 80.0 - 100.[address] [facility] Monocytes (Bld) [#/Vol] 1.15 10*3/uL High [facility] Monocytes/100 WBC (Bld) 12.1 % [facility] Neutrophils (Bld) [#/Vol] 7.29 10*3/uL [facility] Neutrophils/100 WBC (Bld) 76.9 % [facility] Nucleated RBC (Bld) [#/Vol] [facility] Nucleated RBC/100 WBC (Bld) [Ratio] 0.0 % /[address] [facility] Platelet mean volume (Bld) [Entitic vol] 9.0 fL 9.0 - 12.[address] [facility] Platelets (Bld) [#/Vol] 243 10*3/uL [facility] RBC (Bld) [#/Vol] 3.03 10*6/uL Low 3.90 - 5.2 0 m/uL [facility] WBC (Bld) [#/Vol] 9.49 10*3/uL [facility] Comprehensive metabolic 2000 panelOrdered By: Pam Tate on 02-24-2024 Albumin [Mass/Vol] 3.0 g/dL Low 3.9 - 4.9 g/dL [facility] ALP [Catalytic activity/Vol] 69 U/L 34 - 123 U/L [facility] ALT [Catalytic activity/Vol] 13 U/L 7 - 38 U/L [facility] Anion gap [Moles/Vol] 10 mmol/L 8 - 15 mmol/L [facility] AST [Catalytic activity/Vol] 21 U/L 13 - 35 U/L [facility] Bilirubin [Mass/Vol] 0.6 mg/dL 0.2 - 1 .3 mg/dL [facility] Calcium [Mass/Vol] 8.6 mg/dL 8.5 - 10. 2 mg/dL [facility] Chloride [Moles/Vol] 101 mmol/L 98 - 10 7 mmol/L [facility] CO2 [Moles/Vol] 21 mmol/L Low 22 - 30 mmol/L [facility] Creatinine [Mass/Vol] 0.67 mg/dL 0.58 - 0.96 mg/dL [facility] GFR/1.73 sq M.predicted among non-blacks MDRD (S/P/Bld) [Vol rate/Area] 85 mL/min/{1.73_m2} - PINF [facility] Comment on above: Estimated Glomerular Filtration Rate [...] 162 mg/dL High 74 - 99 mg/dL [facility] Comment on above: The [place] [employer] (ADA) provides guidance [...] Standards of Medical Care in Diabetes 2016, [place] [employer]. Diabetes Care. 2016.39(Suppl 1). Interpretation and review of laboratory results Abnormal [facility] Potassium [Moles/Vol] 4.4 mmol/L 3.7 - 5.1 mmol/L [facility] Protein [Mass/Vol] 8.0 g/dL 6.3 - 8.0 g/dL [facility] Sodium [Moles/Vol] 132 mmol/L Low 136 - 144 mmol/L [facility] Urea nitrogen [Mass/Vol] 16 mg/dL 7 - 21 mg/dL [facility] ESR Westergren method (Bld) [Velocity]on 02-24-2024 ESR (Bld) [Velocity] 123 mm/h High [facility] Interpretation and review of laboratory results Abnormal [facility] CBC W Auto Differential pane l (Bld)on 11-25-2023 Basophils (Bld) [#/Vol] 0.03 10*3/uL [facility] Basophils/100 WBC (Bld) 0.6 % [facility] Differential cell count method Nom (Bld) Auto [facility] Eosinophils (Bld) [#/Vol] [facility] Eosinophils/100 WBC (Bld) 0.4 % [facility] Erythrocyte distribution width (RBC) [Ratio] 15.0 % 11.5 - 15.0 % [facility] Hematocrit (Bld) [Volume fraction] 29.7 % Low 36.0 - 46.0 % [facility] Hemoglobin (Bld) [Mass/Vol] 9.8 g/dL Low 11.5 - 15.5 g/dL [facility] Immature granulocytes (Bld) [#/Vol] [facility] Immature granulocytes/100 WBC (Bld) 0.4 % [facility] Interpretation and review of laboratory results Abnormal [facility] Lymphocytes (Bld) [#/Vol] 0.54 10*3/uL Low [facility] Lymphocytes/100 WBC (Bld) 10.4 % [facility] MCH (RBC) [Entitic mass] 33.0 pg 26.0 - 34.[address] [facility] MCHC (RBC) [Mass/Vol] 33.0 g/dL 30.5 - 36.0 g/dL [facility] MCV (RBC) [Entitic vol] 100.0 fL 80.0 - 100.[address] [facility] Monocytes (Bld) [#/Vol] 0.46 10*3/uL NINF [facility] Monocytes/100 WBC (Bld) 8.8 % [facility] Neutrophils (Bld) [#/Vol] 4.13 10*3/uL [facility] Neutrophils/100 WBC (Bld) 79.4 % [facility] Nucleated RBC (Bld) [#/Vol] [facility] Nucleated RBC/100 WBC (Bld) [Ratio] 0.0 % /[address] [facility] Platelet mean volume (Bld) [Entitic vol] 8.9 fL Low 9.0 - 12.[address] [facility] Platelets (Bld) [#/Vol] 146 10*3/uL Low [facility] RBC (Bld) [#/Vol] 2.97 10*6/uL Low 3.90 - 5.2 0 m/uL [facility] WBC (Bld) [#/Vol] 5.20 10*3/uL [facility] Comprehensive metabolic 2000 panelOrdered By: Pam Tate on 11-25-2023 Albumin [Mass/Vol] 3.5 g/dL Low 3.9 - 4.9 g/dL [facility] ALP [Catalytic activity/Vol] 80 U/L 34 - 123 U/L [facility] ALT [Catalytic activity/Vol] 22 U/L 7 - 38 U/L [facility] Anion gap [Moles/Vol] 13 mmol/L 8 - 15 mmol/L [facility] AST [Catalytic activity/Vol] 31 U/L 13 - 35 U/L [facility] Bilirubin [Mass/Vol] 0.6 mg/dL 0.2 - 1 .3 mg/dL [facility] Calcium [Mass/Vol] 9.3 mg/dL 8.5 - 10. 2 mg/dL [facility] Chloride [Moles/Vol] 105 mmol/L 98 - 10 7 mmol/L [facility] CO2 [Moles/Vol] 21 mmol/L Low 22 - 30 mmol/L [facility] Creatinine [Mass/Vol] 0.63 mg/dL 0.58 - 0.96 mg/dL [facility] GFR/1.73 sq M.predicted among non-blacks MDRD (S/P/Bld) [Vol rate/Area] 86 mL/min/{1.73_m2} - PINF [facility] Comment on above: Estimated Glomerular Filtration Rate [...] 148 mg/dL High 74 - 99 mg/dL [facility] Comment on above: The [place] [employer] (ADA) provides guidance [...] Standards of Medical Care in Diabetes 2016, [place] [employer]. Diabetes Care. 2016.39(Suppl 1). Interpretation and review of laboratory results Abnormal [facility] Potassium [Moles/Vol] 4.0 mmol/L 3.7 - 5.1 mmol/L [facility] Protein [Mass/Vol] 8.0 g/dL 6.3 - 8.0 g/dL [facility] Sodium [Moles/Vol] 139 mmol/L 136 - 144 mmol/L [facility] Urea nitrogen [Mass/Vol] 15 mg/dL 7 - 21 mg/dL [facility] ESR Westergren method (Bld) [Velocity]on 11-25-2023 ESR (Bld) [Velocity] 129 mm/h High [facility] Interpretation and review of laboratory results Abnormal [facility] CBC W Auto Differential pane l (Bld)on 08-19-2023 Basophils (Bld) [#/Vol] 0.05 10*3/uL [facility] Basophils/100 WBC (Bld) 0.6 % [facility] Differential cell count method Nom (Bld) Auto [facility] Eosinophils (Bld) [#/Vol] 0.07 10*3/uL [facility] Eosinophils/100 WBC (Bld) 0.8 % [facility] Erythrocyte distribution width (RBC) [Ratio] 14.6 % 11.5 - 15.0 % [facility] Hematocrit (Bld) [Volume fraction] 34.7 % Low 36.0 - 46.0 % [facility] Hemoglobin (Bld) [Mass/Vol] 11.6 g/dL 11.5 - 15.5 g/dL [facility] Immature granulocytes (Bld) [#/Vol] 0.03 10*3/uL [facility] Immature granulocytes/100 WBC (Bld) 0.4 % [facility] Interpretation and review of laboratory results Abnormal [facility] Lymphocytes (Bld) [#/Vol] 0.67 10*3/uL Low [facility] Lymphocytes/100 WBC (Bld) 8.1 % [facility] MCH (RBC) [Entitic mass] 33.1 pg 26.0 - 34.[address] [facility] MCHC (RBC) [Mass/Vol] 33.4 g/dL 30.5 - 36.0 g/dL [facility] MCV (RBC) [Entitic vol] 99.1 fL 80.0 - 100.[address] [facility] Monocytes (Bld) [#/Vol] 1.02 10*3/uL High [facility] Monocytes/100 WBC (Bld) 12.3 % [facility] Neutrophils (Bld) [#/Vol] 6.42 10*3/uL [facility] Neutrophils/100 WBC (Bld) 77.8 % [facility] Nucleated RBC (Bld) [#/Vol] [facility] Nucleated RBC/100 WBC (Bld) [Ratio] 0.0 % /[address] [facility] Platelet mean volume (Bld) [Entitic vol] 8.7 fL Low 9.0 - 12.[address] [facility] Platelets (Bld) [#/Vol] 169 10*3/uL [facility] RBC (Bld) [#/Vol] 3.50 10*6/uL Low 3.90 - 5.2 0 m/uL [facility] WBC (Bld) [#/Vol] 8.26 10*3/uL [facility] FERRITINon 08-19-2023 Ferritin [Mass/Vol] 147.0 ng/mL 14.7 - 205.1 ng/mL [facility] Ferritin [Mass/Vol]on 2023 Interpretation and review of laboratory results Normal [facility] Iron and Iron binding capaci ty panelon 08-19-2023 Interpretation and review of laboratory results Normal [facility] Iron [Mass/Vol] 87 ug/dL 41 - 186 ug/dL [facility] Iron binding capacity [Mass/Vol] 271 ug/dL 232 - 386 ug/dL [facility] Iron/TIBC [Molar ratio] 32.1 % 15.0 - 57.0 % [facility] C-REACTIVE PROTEINon 024 CRP [Mass/Vol] <0.9 mg/dL [facility] CBC W Auto Differential pane l (Bld)on 07-04-2023 Basophils (Bld) [#/Vol] <0.11 k/uL [facility] Basophils/100 WBC (Bld) 0.2 % [facility] Differential cell count method Nom (Bld) Auto [facility] Eosinophils (Bld) [#/Vol] 0.03 10*3/uL <0.46 k/uL [facility] Eosinophils/100 WBC (Bld) 0.3 % [facility] Erythrocyte distribution width (RBC) [Ratio] 14.8 % 11.5 - 15.0 % [facility] Hematocrit (Bld) [Volume fraction] 39.4 % 36.0 - 46.0 % [facility] Hemoglobin (Bld) [Mass/Vol] 13.2 g/dL 11.5 - 15.5 g/dL [facility] Immature granulocytes (Bld) [#/Vol] 0.06 10*3/uL <0.10 k/uL [facility] Immature granulocytes/100 WBC (Bld) 0.6 % [facility] Lymphocytes (Bld) [#/Vol] 0.84 10*3/uL Low 1.00 - 4.00 k/uL [facility] Lymphocytes/100 WBC (Bld) 8.1 % [facility] MCH (RBC) [Entitic mass] 33.0 pg 26.0 - 34.[address] [facility] MCHC (RBC) [Mass/Vol] 33.5 g/dL 30.5 - 36.0 g/dL [facility] MCV (RBC) [Entitic vol] 98.5 fL 80.0 - 100.[address] [facility] Monocytes (Bld) [#/Vol] 1.41 10*3/uL High <0.87 k/uL [facility] Monocytes/100 WBC (Bld) 13.6 % [facility] Neutrophils (Bld) [#/Vol] 8.02 10*3/uL High 1.45 - 7.50 k/uL [facility] Neutrophils/100 WBC (Bld) 77.2 % [facility] Nucleated RBC (Bld) [#/Vol] <0.01 k/uL [facility] Nucleated RBC/100 WBC (Bld) [Ratio] 0.0 /[address] [facility] Platelet mean volume (Bld) [Entitic vol] 9.4 fL 9.0 - 12.[address] [facility] Platelets (Bld) [#/Vol] 151 10*3/uL 150 - 400 k/uL [facility] RBC (Bld) [#/Vol] 4.00 10*6/uL 3.90 - 5.2 0 m/uL [facility] WBC (Bld) [#/Vol] 10.38 10*3/uL 3.70 - 11.00 k/uL [facility] Comprehensive metabolic 2000 panelon 07-04-2023 Albumin [Mass/Vol] 3.5 g/dL Low 3.9 - 4.9 g/dL [facility] ALP [Catalytic activity/Vol] 80 U/L 34 - 123 U/L [facility] ALT [Catalytic activity/Vol] 51 U/L High 7 - 38 U/L [facility] Anion gap [Moles/Vol] 9 mmol/L 9 - 18 mmol/L [facility] AST [Catalytic activity/Vol] 43 U/L High 13 - 35 U/L [facility] Bilirubin [Mass/Vol] 0.8 mg/dL 0.2 - 1 .3 mg/dL [facility] Calcium [Mass/Vol] 9.7 mg/dL 8.5 - 10. 2 mg/dL [facility] Chloride [Moles/Vol] 105 mmol/L 97 - 10 5 mmol/L [facility] CO2 [Moles/Vol] 24 mmol/L 22 - 30 mmol/L [facility] Creatinine [Mass/Vol] 0.73 mg/dL 0.58 - 0.96 mg/dL [facility] Estimated Glomerular Filtration Rate 80 mL/min/1.73m >=60 mL/min/1.[address] [facility] Glucose [Mass/Vol] 85 mg/dL 74 - 99 mg/dL [facility] Potassium [Moles/Vol] 4.5 mmol/L 3.7 - 5.1 mmol/L [facility] Protein [Mass/Vol] 7.4 g/dL 6.3 - 8.0 g/dL [facility] Sodium [Moles/Vol] 138 mmol/L 136 - 144 mmol/L [facility] Urea nitrogen [Mass/Vol] 19 mg/dL 7 - 21 mg/dL [facility] ESR Westergren method (Bld) [Velocity]on 07-04-2023 ESR (Bld) [Velocity] 49 mm/h High 0 - 20 mm/hr [facility] RHEUMATOID FACTORon 07-04-19 24 Rheumatoid factor Qn 439 [IU]/mL High <16 IU/mL [facility] Absolute lymphocyte countOrd ered By: Reji Reyna on 06-30-2023 Lymphocytes Auto (Unsp spec) [#/Vol] 1.25 10*3/uL 0.83-4.51 [facility] Automated lymphocyte count a s percentage of total leukocytesOrdered By: Reji Reyna on 06-30-2023 Lymphocytes/100 WBC Auto (Unsp spec) 21.3 % 19-41 [facility] Basophil percentageOrdered B y: Reji Reyna on 06-30-2023 Basophils/100 WBC (Bld) 0.7 % 0-1 [facility] Bilirubin [Mass/Vol] 0.80 mg/dL 0.20-1.00 [facility] Comment on above: For patients on eltr ombopag therapy, use of Dimension [place] TBIL is not recommended. Chloride [Moles/Vol] 110 mmol/L 98-107 [facility] Eosinophils/100 WBC (Bld) 1.5 % 0-5 [facility] Glucose [Mass/Vol] 74 mg/dL 74-106 [facility] Hemoglobin (Bld) [Mass/Vol] 11.0 g/dL 12.0-15.0 [facility] Monocytes/100 WBC (Bld) 11.9 % 0-10 [facility] Neutrophils (Bld) [#/Vol] 3.8 10*3/uL 2.0-7.7 [facility] Neutrophils/100 WBC (Bld) 64.1 % 47-70 [facility] Potassium [Moles/Vol] 4.0 mmol/L 3.5-5.1 [facility] Protein [Mass/Vol] 6.4 g/dL 6.4-8.2 [facility] Sodium [Moles/Vol] 142 mmol/L 136-145 [facility] WBC (Bld) [#/Vol] 5.9 10*3/uL 4.4-11.0 [facility] Determination of erythrocyte mean corpuscular volume (MCV)Ordered By: Reji Reyna on 06-30-2023 MCV (RBC) [Entitic vol] 102.1 fL 81-99 [facility] Erythrocyte distribution wid th ratioOrdered By: [facility] Gopalalyssa on 06-30-2023 Erythrocyte distribution width (RBC) [Ratio] 15.0 % 11.6-14.6 [facility] Erythrocyte distribution wid th standard deviationOrdered By: [facility] Herronalyssa on 06-30-2023 Erythrocyte distribution width (RBC) [Entitic vol] 55.3 fL 35.1-43.9 [facility] Hematocrit Auto (Bld) [Volum e fraction]Ordered By: [place] Herronal[place]sa on 06-30-2023 Hematocrit (Bld) [Volume fraction] 34.2 % 37-47 [facility] Immature granulocytes/100 WB C Auto (Bld)Ordered By: [place] Reyna on 06-30-2023 Immature granulocytes/100 WBC (Bld) 0.500 % 0.0-0.9 [facility] Comment on above: IG% - Immature Granu locytes (promyelocytes, myelocytes and metamyelocytes) > 1% indicates that a LEFT SHIFT is Present. Laboratory - Chemistry and C hemistry - challengeOrdered By: Reji Reyna on 06-30-2023 Albumin/Globulin [Mass ratio] 0.6 {ratio} 0.9-2.4 [facility] ALP [Catalytic activity/Vol] 59 U/L 45-117 [facility] ALT [Catalytic activity/Vol] 31 U/L 13-56 [facility] CO2 [Moles/Vol] 27.0 mmol/L 21.0-32.0 [facility] Globulin (S) [Mass/Vol] 4.0 g/dL 2.2-4.2 [facility] Urea nitrogen/Creatinine [Mass ratio] 23.6 mg/mg 10-20 [facility] Laboratory - Hematology and Cell countsOrdered By: Reji Reyna on 06-30-2023 MCH (RBC) [Entitic mass] 32.8 pg 27.0-32.0 [facility] MCHC (RBC) [Mass/Vol] 32.2 g/dL 32-36 [facility] Nucleated RBC/100 WBC (Bld) [Ratio] 0 % 0-5 [facility] Platelet mean volume (Bld) [Entitic vol] 9.7 fL 6.2-12.0 [facility] Platelets (Bld) [#/Vol] 131 10*3/uL 150-450 [facility] No Panel InformationOrdered By: Reji Reyna on 06-30-2023 Estimated GFR (MDRD) Amer 123 mL/min >60 [facility] Comment on above: GFR Calc Estimated GFR (MDRD) Non-Af Amer 102 mL/min >60 [facility] Comment on above: Non- GFR Calc RBC Auto (Bld) [#/Vol]Ordere d By: Reji Reyna on 06-30-2023 RBC (Bld) [#/Vol] 3.35 10*6/uL 4.2-5.4 [facility] Serum or plasma calcium yonatan urement (mass/volume)Ordered By: Reji Reyna on 06-30-2023 Calcium [Mass/Vol] 8.5 mg/dL 8.5-10.1 [facility] Serum or plasma creatinine m easurement (mass/volume)Ordered By: Reji Reyna on 06-30-2023 Creatinine [Mass/Vol] 0.59 mg/dL 0.55-1.02 [facility] Comment on above: The validity of the calculated GFR & GFRAA in patients over 70 years has not been determined. Clinical correlation is essential. Serum or plasma urea nitroge n measurement (mass/volume)Ordered By: Jamisongarfield Herronrejialyssa on 06-30-2023 Urea nitrogen [Mass/Vol] 14 mg/dL 7-18 [facility] Thin prep Papanicolaou smear with manual screeningOrdered By: arline Gopalrejialyssa on 06-30-2023 Thin prep Papanicolaou smear with manual screening 2.4 g/dL 3.2-5.0 [facility] Thin prep Papanicolaou smear with manual screening 27 U/L 15-37 [facility] Thin prep Papanicolaou smear with manual screening 5 5-15 [facility] Absolute lymphocyte countOrd ered By: Reji Reyna on 06-02-2023 Lymphocytes Auto (Unsp spec) [#/Vol] 1.12 10*3/uL 0.83-4.51 [facility] Automated lymphocyte count a s percentage of total leukocytesOrdered By: Angelitomerylmichaelgarfield Herronrejialyssa on 06-02-2023 Lymphocytes/100 WBC Auto (Unsp spec) 18.1 % 19-41 [facility] Basophil percentageOrdered B y: Reji Gopaljodi on 06-02-2023 Basophils/100 WBC (Bld) 0.5 % 0-1 [facility] Bilirubin [Mass/Vol] 0.60 mg/dL 0.20-1.00 [facility] Comment on above: For patients on eltr ombopag therapy, use of Dimension [place] TBIL is not recommended. Chloride [Moles/Vol] 110 mmol/L 98-107 [facility] Eosinophils/100 WBC (Bld) 1.5 % 0-5 [facility] Glucose [Mass/Vol] 76 mg/dL 74-106 [facility] Hemoglobin (Bld) [Mass/Vol] 11.3 g/dL 12.0-15.0 [facility] Monocytes/100 WBC (Bld) 9.5 % 0-10 [facility] Neutrophils (Bld) [#/Vol] 4.3 10*3/uL 2.0-7.7 [facility] Neutrophils/100 WBC (Bld) 69.9 % 47-70 [facility] Potassium [Moles/Vol] 4.1 mmol/L 3.5-5.1 [facility] Protein [Mass/Vol] 6.8 g/dL 6.4-8.2 [facility] Sodium [Moles/Vol] 140 mmol/L 136-145 [facility] WBC (Bld) [#/Vol] 6.2 10*3/uL 4.4-11.0 [facility] Determination of erythrocyte mean corpuscular volume (MCV)Ordered By: Reji Reyna on 06-02-2023 MCV (RBC) [Entitic vol] 101.2 fL 81-99 [facility] Erythrocyte distribution wid th ratioOrdered By: [facility] Gopalalyssa on 06-02-2023 Erythrocyte distribution width (RBC) [Ratio] 14.1 % 11.6-14.6 [facility] Erythrocyte distribution wid th standard deviationOrdered By: [facility] cent[facility] Herronalyssa on 06-02-2023 Erythrocyte distribution width (RBC) [Entitic vol] 52.1 fL 35.1-43.9 [facility] Hematocrit Auto (Bld) [Volum e fraction]Ordered By: Reji Reyna on 06-02-2023 Hematocrit (Bld) [Volume fraction] 34.1 % 37-47 [facility] Immature granulocytes/100 WB C Auto (Bld)Ordered By: Reji Reyna on 06-02-2023 Immature granulocytes/100 WBC (Bld) 0.500 % 0.0-0.9 [facility] Comment on above: IG% - Immature Granu locytes (promyelocytes, myelocytes and metamyelocytes) > 1% indicates that a LEFT SHIFT is Present. Laboratory - Chemistry and C hemistry - challengeOrdered By: Reji Reyna on 06-02-2023 Albumin/Globulin [Mass ratio] 0.5 {ratio} 0.9-2.4 [facility] ALP [Catalytic activity/Vol] 67 U/L 45-117 [facility] ALT [Catalytic activity/Vol] 25 U/L 13-56 [facility] CO2 [Moles/Vol] 26.0 mmol/L 21.0-32.0 [facility] Globulin (S) [Mass/Vol] 4.4 g/dL 2.2-4.2 [facility] Urea nitrogen/Creatinine [Mass ratio] 21.1 mg/mg 10-20 [facility] Laboratory - Hematology and Cell countsOrdered By: Reji Reyna on 06-02-2023 MCH (RBC) [Entitic mass] 33.5 pg 27.0-32.0 [facility] MCHC (RBC) [Mass/Vol] 33.1 g/dL 32-36 [facility] Nucleated RBC/100 WBC (Bld) [Ratio] 0 % 0-5 [facility] Platelet mean volume (Bld) [Entitic vol] 9.4 fL 6.2-12.0 [facility] Platelets (Bld) [#/Vol] 144 10*3/uL 150-450 [facility] No Panel InformationOrdered By: Reji Reyna on 06-02-2023 Estimated GFR (MDRD) Amer 118 mL/min >60 [facility] Comment on above: GFR Calc Estimated GFR (MDRD) Non-Af Amer 97 mL/min >60 [facility] Comment on above: Non- GFR Calc RBC Auto (Bld) [#/Vol]Ordere d By: Reji Reyna on 06-02-2023 RBC (Bld) [#/Vol] 3.37 10*6/uL 4.2-5.4 [facility] Serum or plasma calcium yonatan urement (mass/volume)Ordered By: Reji Reyna on 06-02-2023 Calcium [Mass/Vol] 9.1 mg/dL 8.5-10.1 [facility] Serum or plasma creatinine m easurement (mass/volume)Ordered By: Reji Reyna on 06-02-2023 Creatinine [Mass/Vol] 0.62 mg/dL 0.55-1.02 [facility] Comment on above: The validity of the calculated GFR & GFRAA in patients over 70 years has not been determined. Clinical correlation is essential. Serum or plasma urea nitroge n measurement (mass/volume)Ordered By: Jamisongarfield Reyna on 06-02-2023 Urea nitrogen [Mass/Vol] 13 mg/dL 7-18 [facility] Thin prep Papanicolaou smear with manual screeningOrdered By: merylmichaelgarfield Reyna on 06-02-2023 Thin prep Papanicolaou smear with manual screening 2.4 g/dL 3.2-5.0 [facility] Thin prep Papanicolaou smear with manual screening 26 U/L 15-37 [facility] Thin prep Papanicolaou smear with manual screening 4 5-15 [facility] Absolute lymphocyte countOrd ered By: [place] Herronrejialyssa on 05-05-2023 Lymphocytes Auto (Unsp spec) [#/Vol] 1.25 10*3/uL 0.83-4.51 [facility] Automated lymphocyte count a s percentage of total leukocytesOrdered By: Angelitomerylmichaelgarfield Herronrejialyssa on 05-05-2023 Lymphocytes/100 WBC Auto (Unsp spec) 17.8 % 19-41 [facility] Basophil percentageOrdered B y: Reji Gopalrejialyssa on 05-05-2023 Basophils/100 WBC (Bld) 0.6 % 0-1 [facility] Bilirubin [Mass/Vol] 0.80 mg/dL 0.20-1.00 [facility] Comment on above: For patients on eltr ombopag therapy, use of Dimension [place] TBIL is not recommended. Chloride [Moles/Vol] 112 mmol/L 98-107 [facility] Eosinophils/100 WBC (Bld) 1.6 % 0-5 [facility] Glucose [Mass/Vol] 76 mg/dL 74-106 [facility] Hemoglobin (Bld) [Mass/Vol] 11.6 g/dL 12.0-15.0 [facility] Monocytes/100 WBC (Bld) 11.1 % 0-10 [facility] Neutrophils (Bld) [#/Vol] 4.8 10*3/uL 2.0-7.7 [facility] Neutrophils/100 WBC (Bld) 68.5 % 47-70 [facility] Potassium [Moles/Vol] 4.0 mmol/L 3.5-5.1 [facility] Protein [Mass/Vol] 6.7 g/dL 6.4-8.2 [facility] Sodium [Moles/Vol] 142 mmol/L 136-145 [facility] WBC (Bld) [#/Vol] 7.0 10*3/uL 4.4-11.0 [facility] Determination of erythrocyte mean corpuscular volume (MCV)Ordered By: Reji Reyna on 05-05-2023 MCV (RBC) [Entitic vol] 102.3 fL 81-99 [facility] Erythrocyte distribution wid th ratioOrdered By: [facility] Gopalalyssa on 05-05-2023 Erythrocyte distribution width (RBC) [Ratio] 14.0 % 11.6-14.6 [facility] Erythrocyte distribution wid th standard deviationOrdered By: [facility] Herronalyssa on 05-05-2023 Erythrocyte distribution width (RBC) [Entitic vol] 51.9 fL 35.1-43.9 [facility] Hematocrit Auto (Bld) [Volum e fraction]Ordered By: [place] Herr[place] on 05-05-2023 Hematocrit (Bld) [Volume fraction] 35.7 % 37-47 [facility] Immature granulocytes/100 WB C Auto (Bld)Ordered By: [facility] Herr[facility]yssa on 05-05-2023 Immature granulocytes/100 WBC (Bld) 0.400 % 0.0-0.9 [facility] Comment on above: IG% - Immature Granu locytes (promyelocytes, myelocytes and metamyelocytes) > 1% indicates that a LEFT SHIFT is Present. Laboratory - Chemistry and C hemistry - challengeOrdered By: [place] Reyna on 05-05-2023 Albumin/Globulin [Mass ratio] 0.6 {ratio} 0.9-2.4 [facility] ALP [Catalytic activity/Vol] 56 U/L 45-117 [facility] ALT [Catalytic activity/Vol] 24 U/L 13-56 [facility] CO2 [Moles/Vol] 26.0 mmol/L 21.0-32.0 [facility] Globulin (S) [Mass/Vol] 4.3 g/dL 2.2-4.2 [facility] Urea nitrogen/Creatinine [Mass ratio] 16.0 mg/mg 10-20 [facility] Laboratory - Hematology and Cell countsOrdered By: Reji Reyna on 05-05-2023 MCH (RBC) [Entitic mass] 33.2 pg 27.0-32.0 [facility] MCHC (RBC) [Mass/Vol] 32.5 g/dL 32-36 [facility] Nucleated RBC/100 WBC (Bld) [Ratio] 0 % 0-5 [facility] Platelet mean volume (Bld) [Entitic vol] 9.4 fL 6.2-12.0 [facility] Platelets (Bld) [#/Vol] 144 10*3/uL 150-450 [facility] No Panel InformationOrdered By: Reji Reyna on 05-05-2023 Estimated GFR (MDRD) Amer 104 mL/min >60 [facility] Comment on above: GFR Calc Estimated GFR (MDRD) Non-Af Amer 86 mL/min >60 [facility] Comment on above: Non- GFR Calc RBC Auto (Bld) [#/Vol]Ordere d By: Reji Reyna on 05-05-2023 RBC (Bld) [#/Vol] 3.49 10*6/uL 4.2-5.4 [facility] Serum or plasma calcium yonatan urement (mass/volume)Ordered By: Reji Reyna on 05-05-2023 Calcium [Mass/Vol] 9.0 mg/dL 8.5-10.1 [facility] Serum or plasma creatinine m easurement (mass/volume)Ordered By: Reji Reyna on 05-05-2023 Creatinine [Mass/Vol] 0.69 mg/dL 0.55-1.02 [facility] Comment on above: The validity of the calculated GFR & GFRAA in patients over 70 years has not been determined. Clinical correlation is essential. Serum or plasma thyroid stim ulating hormone (TSH) measurement (units/volume)Ordered By: [place] Reyna on 05-05-2023 TSH Qn 1.84 uIU/mL 0.358-3.74 [facility] Serum or plasma urea nitroge n measurement (mass/volume)Ordered By: arline Reyna on 05-05-2023 Urea nitrogen [Mass/Vol] 11 mg/dL 7-18 [facility] Thin prep Papanicolaou smear with manual screeningOrdered By: [facility] Gopalalyssa on 05-05-2023 Thin prep Papanicolaou smear with manual screening 2.4 g/dL 3.2-5.0 [facility] Thin prep Papanicolaou smear with manual screening 16 U/L 15-37 [facility] Thin prep Papanicolaou smear with manual screening 4 5-15 [facility] Absolute lymphocyte countOrd ered By: [facility] Gopalalyssa on 03-31-2023 Lymphocytes Auto (Unsp spec) [#/Vol] 1.66 10*3/uL 0.83-4.51 [facility] Basophil percentageOrdered B y: arline Reyna on 03-31-2023 Basophils/100 WBC (Bld) 0.7 % 0-1 [facility] Bilirubin [Mass/Vol] 0.60 mg/dL 0.20-1.00 [facility] Comment on above: For patients on eltr ombopag therapy, use of Dimension [place] TBIL is not recommended. Chloride [Moles/Vol] 109 mmol/L 98-107 [facility] Eosinophils/100 WBC (Bld) 1.1 % 0-5 [facility] Glucose [Mass/Vol] 69 mg/dL 74-106 [facility] Neutrophils (Bld) [#/Vol] 4.8 10*3/uL 2.0-7.7 [facility] Neutrophils/100 WBC (Bld) 65.4 % 47-70 [facility] Potassium [Moles/Vol] 4.1 mmol/L 3.5-5.1 [facility] Protein [Mass/Vol] 7.0 g/dL 6.4-8.2 [facility] Sodium [Moles/Vol] 142 mmol/L 136-145 [facility] WBC (Bld) [#/Vol] 7.4 10*3/uL 4.4-11.0 [facility] Blood erythrocytes count (nu mber/volume)Ordered By: Reji Reyna on 03-31-2023 RBC (Bld) [#/Vol] 3.54 10*6/uL 4.2-5.4 [facility] Blood hemoglobin measurement (mass/volume)Ordered By: Reji Reyna on 03-31-2023 Hemoglobin (Bld) [Mass/Vol] 12.3 g/dL 12.0-15.0 [facility] Blood lymphocytes/100 leukoc ytesOrdered By: [facility] on 03-31-2023 Lymphocytes/100 WBC (Bld) 22.5 % 19-41 [facility] Blood monocytes/100 leukocyt esOrdered By: [place] Reyna on 03-31-2023 Monocytes/100 WBC (Bld) 9.8 % 0-10 [facility] Blood platelet mean volumeOr dered By: arline Reyna on 03-31-2023 Platelet mean volume (Bld) [Entitic vol] 9.9 fL 6.2-12.0 [facility] Determination of erythrocyte mean corpuscular volume (MCV)Ordered By: Reji Reyna on 03-31-2023 MCV (RBC) [Entitic vol] 103.7 fL 81-99 [facility] Hematocrit Auto (Bld) [Volum e fraction]Ordered By: arline Reyna on 03-31-2023 Hematocrit (Bld) [Volume fraction] 36.7 % 37-47 [facility] Laboratory - Chemistry and C hemistry - challengeOrdered By: arline Reyna on 03-31-2023 ALP [Catalytic activity/Vol] 60 U/L 45-117 [facility] ALT [Catalytic activity/Vol] 26 U/L 13-56 [facility] CO2 [Moles/Vol] 27.0 mmol/L 21.0-32.0 [facility] Globulin (S) [Mass/Vol] 4.2 g/dL 2.2-4.2 [facility] Urea nitrogen/Creatinine [Mass ratio] 19.8 mg/mg 10-20 [facility] Laboratory - Hematology and Cell countsOrdered By: Reji Reyna on 03-31-2023 Erythrocyte distribution width (RBC) [Entitic vol] 51.9 fL 35.1-43.9 [facility] Erythrocyte distribution width (RBC) [Ratio] 13.6 % 11.6-14.6 [facility] Immature granulocytes/100 WBC (Bld) 0.500 % 0.0-0.9 [facility] Comment on above: IG% - Immature Granu locytes (promyelocytes, myelocytes and metamyelocytes) > 1% indicates that a LEFT SHIFT is Present. MCH (RBC) [Entitic mass] 34.7 pg 27.0-32.0 [facility] Nucleated RBC/100 WBC (Bld) [Ratio] 0 % 0-5 [facility] MCHC Auto (RBC) [Mass/Vol]Or dered By: Reji Reyna on 03-31-2023 MCHC (RBC) [Mass/Vol] 33.5 g/dL 32-36 [facility] No Panel InformationOrdered By: Reji Reyna on 03-31-2023 Estimated GFR (MDRD) Amer 120 mL/min >60 [facility] Comment on above: GFR Calc Estimated GFR (MDRD) Non-Af Amer 99 mL/min >60 [facility] Comment on above: Non- GFR Calc Platelets bldOrdered By: Fredy Reyna on 03-31-2023 Platelets (Bld) [#/Vol] 139 10*3/uL 150-450 [facility] Serum or plasma albumin yonatan urement (mass/volume)Ordered By: Reji Reyna on 03-31-2023 Albumin [Mass/Vol] 2.8 g/dL 3.2-5.0 [facility] Serum or plasma albumin/glob ulin mass ratioOrdered By: Reji Reyna on 03-31-2023 Albumin/Globulin [Mass ratio] 0.7 {ratio} 0.9-2.4 [facility] Serum or plasma calcium yonatan urement (mass/volume)Ordered By: Reji Reyna on 03-31-2023 Calcium [Mass/Vol] 9.1 mg/dL 8.5-10.1 [facility] Serum or plasma creatinine m easurement (mass/volume)Ordered By: Reji Reyna on 03-31-2023 Creatinine [Mass/Vol] 0.61 mg/dL 0.55-1.02 [facility] Comment on above: The validity of the calculated GFR & GFRAA in patients over 70 years has not been determined. Clinical correlation is essential. Serum or plasma urea nitroge n measurement (mass/volume)Ordered By: Reji Reyna on 03-31-2023 Urea nitrogen [Mass/Vol] 12 mg/dL - [facility] Thin prep Papanicolaou smear with manual screeningOrdered By: Reji Reyna on 03-31-2023 Thin prep Papanicolaou smear with manual screening 22 U/L [facility] Thin prep Papanicolaou smear with manual screening 6 - [facility] Absolute lymphocyte countOrd ered By: Reji Reyna on 03-03-2023 Lymphocytes Auto (Unsp spec) [#/Vol] 1.95 10*3/uL 0.83-4.51 [facility] Basophil percentageOrdered B y: Reji Reyna on 03-03-2023 Basophils/100 WBC (Bld) 0.5 % 0-1 [facility] Bilirubin [Mass/Vol] 0.80 mg/dL 0.20-1.00 [facility] Comment on above: For patients on eltr ombopag therapy, use of Dimension [place] TBIL is not recommended. Chloride [Moles/Vol] 109 mmol/L 98-107 [facility] Eosinophils/100 WBC (Bld) 1.6 % 0-5 [facility] Glucose [Mass/Vol] 67 mg/dL 74-106 [facility] Neutrophils (Bld) [#/Vol] 4.4 10*3/uL 2.0-7.7 [facility] Neutrophils/100 WBC (Bld) 60.1 % 47-70 [facility] Potassium [Moles/Vol] 4.2 mmol/L 3.5-5.1 [facility] Protein [Mass/Vol] 7.3 g/dL 6.4-8.2 [facility] Sodium [Moles/Vol] 142 mmol/L 136-145 [facility] WBC (Bld) [#/Vol] 7.4 10*3/uL 4.4-11.0 [facility] Blood erythrocytes count (nu mber/volume)Ordered By: Reji Reyna on 03-03-2023 RBC (Bld) [#/Vol] 3.61 10*6/uL 4.2-5.4 [facility] Blood hemoglobin measurement (mass/volume)Ordered By: Reji Reyna on 03-03-2023 Hemoglobin (Bld) [Mass/Vol] 12.6 g/dL 12.0-15.0 [facility] Blood lymphocytes/100 leukoc ytesOrdered By: Reji Reyna on 03-03-2023 Lymphocytes/100 WBC (Bld) 26.4 % 19-41 [facility] Blood monocytes/100 leukocyt esOrdered By: [place] Reyna on 03-03-2023 Monocytes/100 WBC (Bld) 10.7 % 0-10 [facility] Blood platelet mean volumeOr dered By: Reji Reyna on 03-03-2023 Platelet mean volume (Bld) [Entitic vol] 9.8 fL 6.2-12.0 [facility] Determination of erythrocyte mean corpuscular volume (MCV)Ordered By: Reji Reyna on 03-03-2023 MCV (RBC) [Entitic vol] 104.7 fL 81-99 [facility] Hematocrit Auto (Bld) [Volum e fraction]Ordered By: Reji Reyna on 03-03-2023 Hematocrit (Bld) [Volume fraction] 37.8 % 37-47 [facility] Laboratory - Chemistry and C hemistry - challengeOrdered By: Reji Reyna on 03-03-2023 ALP [Catalytic activity/Vol] 71 U/L 45-117 [facility] ALT [Catalytic activity/Vol] 38 U/L 13-56 [facility] CO2 [Moles/Vol] 28.0 mmol/L 21.0-32.0 [facility] Globulin (S) [Mass/Vol] 4.3 g/dL 2.2-4.2 [facility] Urea nitrogen/Creatinine [Mass ratio] 20.3 mg/mg 10-20 [facility] Laboratory - Hematology and Cell countsOrdered By: Reji Reyna on 03-03-2023 Erythrocyte distribution width (RBC) [Entitic vol] 53.8 fL 35.1-43.9 [facility] Erythrocyte distribution width (RBC) [Ratio] 14.0 % 11.6-14.6 [facility] Immature granulocytes/100 WBC (Bld) 0.700 % 0.0-0.9 [facility] Comment on above: IG% - Immature Granu locytes (promyelocytes, myelocytes and metamyelocytes) > 1% indicates that a LEFT SHIFT is Present. MCH (RBC) [Entitic mass] 34.9 pg 27.0-32.0 [facility] Nucleated RBC/100 WBC (Bld) [Ratio] 0 % 0-5 [facility] MCHC Auto (RBC) [Mass/Vol]Or dered By: Reji Reyna on 03-03-2023 MCHC (RBC) [Mass/Vol] 33.3 g/dL 32-36 [facility] No Panel InformationOrdered By: Reji Reyna on 03-03-2023 Estimated GFR (MDRD) Amer 96 mL/min >60 [facility] Comment on above: GFR Calc Estimated GFR (MDRD) Non-Af Amer 79 mL/min >60 [facility] Comment on above: Non- GFR Calc Platelets bldOrdered By: Fredy Reyna on 03-03-2023 Platelets (Bld) [#/Vol] 141 10*3/uL 150-450 [facility] Serum or plasma albumin yonatan urement (mass/volume)Ordered By: Reji Reyna on 03-03-2023 Albumin [Mass/Vol] 3.0 g/dL 3.2-5.0 [facility] Serum or plasma albumin/glob ulin mass ratioOrdered By: Reji Reyna on 03-03-2023 Albumin/Globulin [Mass ratio] 0.7 {ratio} 0.9-2.4 [facility] Serum or plasma calcium yonatan urement (mass/volume)Ordered By: Reji Reyna on 03-03-2023 Calcium [Mass/Vol] 9.0 mg/dL 8.5-10.1 [facility] Serum or plasma creatinine m easurement (mass/volume)Ordered By: Reji Reyna on 03-03-2023 Creatinine [Mass/Vol] 0.74 mg/dL 0.55-1.02 [facility] Comment on above: The validity of the calculated GFR & GFRAA in patients over 70 years has not been determined. Clinical correlation is essential. Serum or plasma urea nitroge n measurement (mass/volume)Ordered By: Reji Reyna on 03-03-2023 Urea nitrogen [Mass/Vol] 15 mg/dL - [facility] Thin prep Papanicolaou smear with manual screeningOrdered By: arline Reyna on 03-03-2023 Thin prep Papanicolaou smear with manual screening 38 U/L 15-37 [facility] Thin prep Papanicolaou smear with manual screening 5 5-15 [facility] Absolute lymphocyte countOrd ered By: Angelitoarline Reyna on 02-03-2023 Lymphocytes Auto (Unsp spec) [#/Vol] 1.74 10*3/uL 0.83-4.51 [facility] Basophil percentageOrdered B y: Reji Gopalrejialyssa on 02-03-2023 Basophils/100 WBC (Bld) 0.6 % 0-1 [facility] Bilirubin [Mass/Vol] 0.70 mg/dL 0.20-1.00 [facility] Comment on above: For patients on eltr ombopag therapy, use of Dimension [place] TBIL is not recommended. Chloride [Moles/Vol] 108 mmol/L 98-107 [facility] Eosinophils/100 WBC (Bld) 1.4 % 0-5 [facility] Glucose [Mass/Vol] 79 mg/dL 74-106 [facility] Neutrophils (Bld) [#/Vol] 4.5 10*3/uL 2.0-7.7 [facility] Neutrophils/100 WBC (Bld) 62.8 % 47-70 [facility] Potassium [Moles/Vol] 3.8 mmol/L 3.5-5.1 [facility] Protein [Mass/Vol] 7.3 g/dL 6.4-8.2 [facility] Sodium [Moles/Vol] 141 mmol/L 136-145 [facility] WBC (Bld) [#/Vol] 7.1 10*3/uL 4.4-11.0 [facility] Blood erythrocytes count (nu mber/volume)Ordered By: Reji Reyna on 02-03-2023 RBC (Bld) [#/Vol] 3.58 10*6/uL 4.2-5.4 [facility] Blood hemoglobin measurement (mass/volume)Ordered By: Reji Reyna on 02-03-2023 Hemoglobin (Bld) [Mass/Vol] 12.3 g/dL 12.0-15.0 [facility] Blood lymphocytes/100 leukoc ytesOrdered By: Reji Reyna on 02-03-2023 Lymphocytes/100 WBC (Bld) 24.5 % 19-41 [facility] Blood monocytes/100 leukocyt esOrdered By: Reji Reyna on 02-03-2023 Monocytes/100 WBC (Bld) 10.4 % 0-10 [facility] Blood platelet mean volumeOr dered By: Reji Reyna on 02-03-2023 Platelet mean volume (Bld) [Entitic vol] 9.4 fL 6.2-12.0 [facility] Determination of erythrocyte mean corpuscular volume (MCV)Ordered By: Reji Reyna on 02-03-2023 MCV (RBC) [Entitic vol] 103.9 fL 81-99 [facility] Hematocrit Auto (Bld) [Volum e fraction]Ordered By: Reji Reyna on 02-03-2023 Hematocrit (Bld) [Volume fraction] 37.2 % 37-47 [facility] Laboratory - Chemistry and C hemistry - challengeOrdered By: Reji Reyna on 02-03-2023 ALP [Catalytic activity/Vol] 88 U/L 45-117 [facility] ALT [Catalytic activity/Vol] 36 U/L 13-56 [facility] CO2 [Moles/Vol] 27.0 mmol/L 21.0-32.0 [facility] Globulin (S) [Mass/Vol] 4.5 g/dL 2.2-4.2 [facility] Urea nitrogen/Creatinine [Mass ratio] 22.9 mg/mg 10- [facility] Laboratory - Hematology and Cell countsOrdered By: Reji Reyna on 02-03-2023 Erythrocyte distribution width (RBC) [Entitic vol] 55.1 fL 35.1-43.9 [facility] Erythrocyte distribution width (RBC) [Ratio] 14.5 % 11.6-14.6 [facility] Immature granulocytes/100 WBC (Bld) 0.300 % 0.0-0.9 [facility] Comment on above: IG% - Immature Granu locytes (promyelocytes, myelocytes and metamyelocytes) > 1% indicates that a LEFT SHIFT is Present. MCH (RBC) [Entitic mass] 34.4 pg 27.0-32.0 [facility] Nucleated RBC/100 WBC (Bld) [Ratio] 0 % 0-5 [facility] MCHC Auto (RBC) [Mass/Vol]Or dered By: Reji Reyna on 02-03-2023 MCHC (RBC) [Mass/Vol] 33.1 g/dL 32-36 [facility] No Panel InformationOrdered By: Reji Reyna on 02-03-2023 Estimated GFR (MDRD) Amer 110 mL/min >60 [facility] Comment on above: GFR Calc Estimated GFR (MDRD) Non-Af Amer 91 mL/min >60 [facility] Comment on above: Non- GFR Calc Platelets bldOrdered By: Fredy Reyna on 02-03-2023 Platelets (Bld) [#/Vol] 134 10*3/uL 150-450 [facility] Serum or plasma albumin yonatan urement (mass/volume)Ordered By: Reji Reyna on 02-03-2023 Albumin [Mass/Vol] 2.8 g/dL 3.2-5.0 [facility] Serum or plasma albumin/glob ulin mass ratioOrdered By: Reji Reyna on 02-03-2023 Albumin/Globulin [Mass ratio] 0.6 {ratio} 0.9-2.4 [facility] Serum or plasma calcium yonatan urement (mass/volume)Ordered By: Reji Reyna on 02-03-2023 Calcium [Mass/Vol] 9.2 mg/dL 8.5-10.1 [facility] Serum or plasma creatinine m easurement (mass/volume)Ordered By: Reji Reyna on 02-03-2023 Creatinine [Mass/Vol] 0.66 mg/dL 0.55-1.02 [facility] Comment on above: The validity of the calculated GFR & GFRAA in patients over 70 years has not been determined. Clinical correlation is essential. Serum or plasma urea nitroge n measurement (mass/volume)Ordered By: Reji Reyna on 02-03-2023 Urea nitrogen [Mass/Vol] 15 mg/dL 7-18 [facility] Thin prep Papanicolaou smear with manual screeningOrdered By: Reji Reyna on 02-03-2023 Thin prep Papanicolaou smear with manual screening 29 U/L 15-37 [facility] Thin prep Papanicolaou smear with manual screening 6 5-15 [facility] Absolute lymphocyte countOrd ered By: Reji Reyna on 12-30-2022 Lymphocytes Auto (Unsp spec) [#/Vol] 1.24 10*3/uL 0.83-4.51 [facility] Basophil percentageOrdered B y: Reji Reyna on 12-30-2022 Basophils/100 WBC (Bld) 0.8 % 0-1 [facility] Bilirubin [Mass/Vol] 0.60 mg/dL 0.20-1.00 [facility] Comment on above: For patients on eltr ombopag therapy, use of Dimension [place] TBIL is not recommended. Chloride [Moles/Vol] 111 mmol/L 98-107 [facility] Eosinophils/100 WBC (Bld) 2.6 % 0-5 [facility] Glucose [Mass/Vol] 81 mg/dL 74-106 [facility] Neutrophils (Bld) [#/Vol] 2.9 10*3/uL 2.0-7.7 [facility] Neutrophils/100 WBC (Bld) 57.5 % 47-70 [facility] Potassium [Moles/Vol] 4.1 mmol/L 3.5-5.1 [facility] Protein [Mass/Vol] 6.8 g/dL 6.4-8.2 [facility] Sodium [Moles/Vol] 141 mmol/L 136-145 [facility] WBC (Bld) [#/Vol] 5.0 10*3/uL 4.4-11.0 [facility] Blood erythrocytes count (nu mber/volume)Ordered By: Reji Reyna on 12-30-2022 RBC (Bld) [#/Vol] 3.26 10*6/uL 4.2-5.4 [facility] Blood hemoglobin measurement (mass/volume)Ordered By: Reji Reyna on 12-30-2022 Hemoglobin (Bld) [Mass/Vol] 11.8 g/dL 12.0-15.0 [facility] Blood lymphocytes/100 leukoc ytesOrdered By: Reji Reyna on 12-30-2022 Lymphocytes/100 WBC (Bld) 25.0 % 19-41 [facility] Blood monocytes/100 leukocyt esOrdered By: Reji Reyna on 12-30-2022 Monocytes/100 WBC (Bld) 13.9 % 0-10 [facility] Blood platelet mean volumeOr dered By: Reji Reyna on 12-30-2022 Platelet mean volume (Bld) [Entitic vol] 10.1 fL 6.2-12.0 [facility] Determination of erythrocyte mean corpuscular volume (MCV)Ordered By: Reji Reyna on 12-30-2022 MCV (RBC) [Entitic vol] 104.6 fL 81-99 [facility] Hematocrit Auto (Bld) [Volum e fraction]Ordered By: Reji Reyna on 12-30-2022 Hematocrit (Bld) [Volume fraction] 34.1 % 37-47 [facility] Laboratory - Chemistry and C hemistry - challengeOrdered By: Reji Reyna on 12-30-2022 ALP [Catalytic activity/Vol] 89 U/L 45-117 [facility] ALT [Catalytic activity/Vol] 25 U/L 13-56 [facility] CO2 [Moles/Vol] 25.0 mmol/L 21.0-32.0 [facility] Globulin (S) [Mass/Vol] 4.0 g/dL 2.2-4.2 [facility] Urea nitrogen/Creatinine [Mass ratio] 21.3 mg/mg 10-20 [facility] Laboratory - Hematology and Cell countsOrdered By: Reji Reyna on 12-30-2022 Erythrocyte distribution width (RBC) [Entitic vol] 53.4 fL 35.1-43.9 [facility] Erythrocyte distribution width (RBC) [Ratio] 14.1 % 11.6-14.6 [facility] Immature granulocytes/100 WBC (Bld) 0.200 % 0.0-0.9 [facility] Comment on above: IG% - Immature Granu locytes (promyelocytes, myelocytes and metamyelocytes) > 1% indicates that a LEFT SHIFT is Present. MCH (RBC) [Entitic mass] 36.2 pg 27.0-32.0 [facility] Nucleated RBC/100 WBC (Bld) [Ratio] 0 % 0-5 [facility] MCHC Auto (RBC) [Mass/Vol]Or dered By: Reji Reyna on 12-30-2022 MCHC (RBC) [Mass/Vol] 34.6 g/dL 32-36 [facility] No Panel InformationOrdered By: Reji Reyna on 12-30-2022 Estimated GFR (MDRD) Amer 120 mL/min >60 [facility] Comment on above: GFR Calc Estimated GFR (MDRD) Non-Af Amer 99 mL/min >60 [facility] Comment on above: Non- GFR Calc Platelets bldOrdered By: Fredy Reyna on 12-30-2022 Platelets (Bld) [#/Vol] 111 10*3/uL 150-450 [facility] Serum or plasma albumin yonatan urement (mass/volume)Ordered By: Reji Reyna on 12-30-2022 Albumin [Mass/Vol] 2.8 g/dL 3.2-5.0 [facility] Serum or plasma albumin/glob ulin mass ratioOrdered By: Reji Reyna on 12-30-2022 Albumin/Globulin [Mass ratio] 0.7 {ratio} 0.9-2.4 [facility] Serum or plasma calcium yonatan urement (mass/volume)Ordered By: Reji Reyna on 12-30-2022 Calcium [Mass/Vol] 9.1 mg/dL 8.5-10.1 [facility] Serum or plasma creatinine m easurement (mass/volume)Ordered By: Reji Reyna on 12-30-2022 Creatinine [Mass/Vol] 0.61 mg/dL 0.55-1.02 [facility] Comment on above: The validity of the calculated GFR & GFRAA in patients over 70 years has not been determined. Clinical correlation is essential. Serum or plasma urea nitroge n measurement (mass/volume)Ordered By: Reji Reyna on 12-30-2022 Urea nitrogen [Mass/Vol] 13 mg/dL - [facility] Thin prep Papanicolaou smear with manual screeningOrdered By: arline Reyna on 12-30-2022 Thin prep Papanicolaou smear with manual screening 25 U/L 15-37 [facility] Thin prep Papanicolaou smear with manual screening 5 5-15 [facility] Absolute lymphocyte countOrd ered By: Reji Reyna on 12-02-2022 Lymphocytes Auto (Unsp spec) [#/Vol] 1.55 10*3/uL 0.83-4.51 [facility] Basophil percentageOrdered B y: Reji Reyna on 12-02-2022 Basophils/100 WBC (Bld) 0.4 % 0-1 [facility] Bilirubin [Mass/Vol] 0.60 mg/dL 0.20-1.00 [facility] Comment on above: For patients on eltr ombopag therapy, use of Dimension [place] TBIL is not recommended. Chloride [Moles/Vol] 109 mmol/L 98-107 [facility] Eosinophils/100 WBC (Bld) 2.3 % 0-5 [facility] Glucose [Mass/Vol] 82 mg/dL 74-106 [facility] Neutrophils (Bld) [#/Vol] 3.0 10*3/uL 2.0-7.7 [facility] Neutrophils/100 WBC (Bld) 56.8 % 47-70 [facility] Potassium [Moles/Vol] 4.5 mmol/L 3.5-5.1 [facility] Protein [Mass/Vol] 7.0 g/dL 6.4-8.2 [facility] Sodium [Moles/Vol] 140 mmol/L 136-145 [facility] WBC (Bld) [#/Vol] 5.3 10*3/uL 4.4-11.0 [facility] Blood erythrocytes count (nu mber/volume)Ordered By: Reji Reyna on 12-02-2022 RBC (Bld) [#/Vol] 3.54 10*6/uL 4.2-5.4 [facility] Blood hemoglobin measurement (mass/volume)Ordered By: Reji Reyna on 12-02-2022 Hemoglobin (Bld) [Mass/Vol] 12.2 g/dL 12.0-15.0 [facility] Blood lymphocytes/100 leukoc ytesOrdered By: Reji Reyna on 12-02-2022 Lymphocytes/100 WBC (Bld) 29.3 % 19-41 [facility] Blood monocytes/100 leukocyt esOrdered By: Reji Reyna on 12-02-2022 Monocytes/100 WBC (Bld) 10.8 % 0-10 [facility] Blood platelet mean volumeOr dered By: Reji Reyna on 12-02-2022 Platelet mean volume (Bld) [Entitic vol] 10.1 fL 6.2-12.0 [facility] Determination of erythrocyte mean corpuscular volume (MCV)Ordered By: Reji Reyna on 12-02-2022 MCV (RBC) [Entitic vol] 104.8 fL 81-99 [facility] Hematocrit Auto (Bld) [Volum e fraction]Ordered By: Reji Reyna on 12-02-2022 Hematocrit (Bld) [Volume fraction] 37.1 % 37-47 [facility] Laboratory - Chemistry and C hemistry - challengeOrdered By: Reji Reyna on 12-02-2022 ALP [Catalytic activity/Vol] 90 U/L 45-117 [facility] ALT [Catalytic activity/Vol] 30 U/L 13-56 [facility] CO2 [Moles/Vol] 26.0 mmol/L 21.0-32.0 [facility] Globulin (S) [Mass/Vol] 4.0 g/dL 2.2-4.2 [facility] Urea nitrogen/Creatinine [Mass ratio] 25.4 mg/mg 10-20 [facility] Laboratory - Hematology and Cell countsOrdered By: Reji Reyna on 12-02-2022 Erythrocyte distribution width (RBC) [Entitic vol] 51.2 fL 35.1-43.9 [facility] Erythrocyte distribution width (RBC) [Ratio] 13.4 % 11.6-14.6 [facility] Immature granulocytes/100 WBC (Bld) 0.400 % 0.0-0.9 [facility] Comment on above: IG% - Immature Granu locytes (promyelocytes, myelocytes and metamyelocytes) > 1% indicates that a LEFT SHIFT is Present. MCH (RBC) [Entitic mass] 34.5 pg 27.0-32.0 [facility] Nucleated RBC/100 WBC (Bld) [Ratio] 0 % 0-5 [facility] MCHC Auto (RBC) [Mass/Vol]Or dered By: Reji Reyna on 12-02-2022 MCHC (RBC) [Mass/Vol] 32.9 g/dL 32-36 [facility] No Panel InformationOrdered By: Reji Reyna on 12-02-2022 Estimated GFR (MDRD) Amer 115 mL/min >60 [facility] Comment on above: GFR Calc Estimated GFR (MDRD) Non-Af Amer 95 mL/min >60 [facility] Comment on above: Non- GFR Calc Platelets bldOrdered By: Fredy Reyna on 12-02-2022 Platelets (Bld) [#/Vol] 117 10*3/uL 150-450 [facility] Serum or plasma albumin yonatan urement (mass/volume)Ordered By: Reji Reyna on 12-02-2022 Albumin [Mass/Vol] 3.0 g/dL 3.2-5.0 [facility] Serum or plasma albumin/glob ulin mass ratioOrdered By: Reji Reyna on 12-02-2022 Albumin/Globulin [Mass ratio] 0.8 {ratio} 0.9-2.4 [facility] Serum or plasma calcium yonatan urement (mass/volume)Ordered By: Reji Reyna on 12-02-2022 Calcium [Mass/Vol] 8.9 mg/dL 8.5-10.1 [facility] Serum or plasma creatinine m easurement (mass/volume)Ordered By: Reji Reyna on 12-02-2022 Creatinine [Mass/Vol] 0.63 mg/dL 0.55-1.02 [facility] Comment on above: The validity of the calculated GFR & GFRAA in patients over 70 years has not been determined. Clinical correlation is essential. Serum or plasma urea nitroge n measurement (mass/volume)Ordered By: Reji Reyna on 12-02-2022 Urea nitrogen [Mass/Vol] 16 mg/dL 7-18 [facility] Thin prep Papanicolaou smear with manual screeningOrdered By: Reji Reyna on 12-02-2022 Thin prep Papanicolaou smear with manual screening 34 U/L 15-37 [facility] Thin prep Papanicolaou smear with manual screening 5 5-15 [facility] XR WRIST GENERAL 3V PA/LAT/O BL RIGHTon 11-25-[address] [facility] Absolute lymphocyte countOrd ered By: Reji Reyna on 11-04-2022 Lymphocytes Auto (Unsp spec) [#/Vol] 1.45 10*3/uL 0.83-4.51 [facility] Basophil percentageOrdered B y: Reji Reyna on 11-04-2022 Basophils/100 WBC (Bld) 0.7 % 0-1 [facility] Bilirubin [Mass/Vol] 0.60 mg/dL 0.20-1.00 [facility] Comment on above: For patients on eltr ombopag therapy, use of Dimension [place] TBIL is not recommended. Chloride [Moles/Vol] 111 mmol/L 98-107 [facility] Eosinophils/100 WBC (Bld) 2.4 % 0-5 [facility] Glucose [Mass/Vol] 84 mg/dL 74-106 [facility] Neutrophils (Bld) [#/Vol] 2.4 10*3/uL 2.0-7.7 [facility] Neutrophils/100 WBC (Bld) 52.9 % 47-70 [facility] Potassium [Moles/Vol] 4.0 mmol/L 3.5-5.1 [facility] Protein [Mass/Vol] 7.2 g/dL 6.4-8.2 [facility] Sodium [Moles/Vol] 141 mmol/L 136-145 [facility] WBC (Bld) [#/Vol] 4.6 10*3/uL 4.4-11.0 [facility] Blood erythrocytes count (nu mber/volume)Ordered By: Reji Reyna on 11-04-2022 RBC (Bld) [#/Vol] 3.31 10*6/uL 4.2-5.4 [facility] Blood hemoglobin measurement (mass/volume)Ordered By: Reji Reyna on 11-04-2022 Hemoglobin (Bld) [Mass/Vol] 11.5 g/dL 12.0-15.0 [facility] Blood lymphocytes/100 leukoc ytesOrdered By: Reji Reyna on 11-04-2022 Lymphocytes/100 WBC (Bld) 31.9 % 19-41 [facility] Blood monocytes/100 leukocyt esOrdered By: Reji Reyna on 11-04-2022 Monocytes/100 WBC (Bld) 11.9 % 0-10 [facility] Blood platelet mean volumeOr dered By: Reji Reyna on 11-04-2022 Platelet mean volume (Bld) [Entitic vol] 10.0 fL 6.2-12.0 [facility] Determination of erythrocyte mean corpuscular volume (MCV)Ordered By: Reji Reyna on 11-04-2022 MCV (RBC) [Entitic vol] 107.6 fL 81-99 [facility] Hematocrit Auto (Bld) [Volum e fraction]Ordered By: Reji Reyna on 11-04-2022 Hematocrit (Bld) [Volume fraction] 35.6 % 37-47 [facility] Laboratory - Chemistry and C hemistry - challengeOrdered By: Reji Reyna on 11-04-2022 ALP [Catalytic activity/Vol] 88 U/L 45-117 [facility] ALT [Catalytic activity/Vol] 22 U/L 13-56 [facility] CO2 [Moles/Vol] 26.0 mmol/L 21.0-32.0 [facility] Globulin (S) [Mass/Vol] 4.3 g/dL 2.2-4.2 [facility] Urea nitrogen/Creatinine [Mass ratio] 21.2 mg/mg 10-20 [facility] Laboratory - Hematology and Cell countsOrdered By: [place] on 11-04-2022 Erythrocyte distribution width (RBC) [Entitic vol] 52.2 fL 35.1-43.9 [facility] Erythrocyte distribution width (RBC) [Ratio] 13.2 % 11.6-14.6 [facility] Immature granulocytes/100 WBC (Bld) 0.200 % 0.0-0.9 [facility] Comment on above: IG% - Immature Granu locytes (promyelocytes, myelocytes and metamyelocytes) > 1% indicates that a LEFT SHIFT is Present. MCH (RBC) [Entitic mass] 34.7 pg 27.0-32.0 [facility] Nucleated RBC/100 WBC (Bld) [Ratio] 0 % 0-5 [facility] MCHC Auto (RBC) [Mass/Vol]Or dered By: Reji Reyna on 11-04-2022 MCHC (RBC) [Mass/Vol] 32.3 g/dL 32-36 [facility] No Panel InformationOrdered By: Reji Reyna on 11-04-2022 Estimated GFR (MDRD) Amer 119 mL/min >60 [facility] Comment on above: GFR Calc Estimated GFR (MDRD) Non-Af Amer 98 mL/min >60 [facility] Comment on above: Non- GFR Calc Thyroid Stimulating Hormone (TSH) 0.93 uIU/mL 0.358-3.74 [facility] Platelets bldOrdered By: Fredy stone Maribell on 11-04-2022 Platelets (Bld) [#/Vol] 114 10*3/uL 150-450 [facility] Serum or plasma albumin yonatan urement (mass/volume)Ordered By: Reji Reyna on 11-04-2022 Albumin [Mass/Vol] 2.9 g/dL 3.2-5.0 [facility] Serum or plasma albumin/glob ulin mass ratioOrdered By: Reji Reyna on 11-04-2022 Albumin/Globulin [Mass ratio] 0.7 {ratio} 0.9-2.4 [facility] Serum or plasma calcium yonatan urement (mass/volume)Ordered By: Reji Reyna on 11-04-2022 Calcium [Mass/Vol] 9.4 mg/dL 8.5-10.1 [facility] Serum or plasma creatinine m easurement (mass/volume)Ordered By: Reji Reyna on 11-04-2022 Creatinine [Mass/Vol] 0.61 mg/dL 0.55-1.02 [facility] Comment on above: The validity of the calculated GFR & GFRAA in patients over 70 years has not been determined. Clinical correlation is essential. Serum or plasma urea nitroge n measurement (mass/volume)Ordered By: Reji Reyna on 11-04-2022 Urea nitrogen [Mass/Vol] 13 mg/dL 7-18 [facility] Thin prep Papanicolaou smear with manual screeningOrdered By: Reji Reyna on 11-04-2022 Thin prep Papanicolaou smear with manual screening 29 U/L 15-37 [facility] Thin prep Papanicolaou smear with manual screening 4 5-15 [facility] Absolute lymphocyte countOrd ered By: Reji Reyna on 09-30-2022 Lymphocytes Auto (Unsp spec) [#/Vol] 1.40 10*3/uL 0.83-4.51 [facility] Basophil percentageOrdered B y: Reji Reyna on 09-30-2022 Basophils/100 WBC (Bld) 0.5 % 0-1 [facility] Bilirubin [Mass/Vol] 0.80 mg/dL 0.20-1.00 [facility] Comment on above: For patients on eltr ombopag therapy, use of Dimension [place] TBIL is not recommended. Chloride [Moles/Vol] 113 mmol/L 98-107 [facility] Eosinophils/100 WBC (Bld) 2.2 % 0-5 [facility] Glucose [Mass/Vol] 80 mg/dL 74-106 [facility] Neutrophils (Bld) [#/Vol] 2.2 10*3/uL 2.0-7.7 [facility] Neutrophils/100 WBC (Bld) 52.0 % 47-70 [facility] Potassium [Moles/Vol] 3.8 mmol/L 3.5-5.1 [facility] Protein [Mass/Vol] 6.6 g/dL 6.4-8.2 [facility] Sodium [Moles/Vol] 142 mmol/L 136-145 [facility] WBC (Bld) [#/Vol] 4.1 10*3/uL 4.4-11.0 [facility] Blood erythrocytes count (nu mber/volume)Ordered By: Reji Reyna on 09-30-2022 RBC (Bld) [#/Vol] 2.92 10*6/uL 4.2-5.4 [facility] Blood hemoglobin measurement (mass/volume)Ordered By: Reji Reyna on 09-30-2022 Hemoglobin (Bld) [Mass/Vol] 10.7 g/dL 12.0-15.0 [facility] Blood lymphocytes/100 leukoc ytesOrdered By: Reji Reyna on 09-30-2022 Lymphocytes/100 WBC (Bld) 33.9 % 19-41 [facility] Blood monocytes/100 leukocyt esOrdered By: Reji Reyna on 09-30-2022 Monocytes/100 WBC (Bld) 11.4 % 0-10 [facility] Blood platelet mean volumeOr dered By: Reji Reyna on 09-30-2022 Platelet mean volume (Bld) [Entitic vol] 9.8 fL 6.2-12.0 [facility] Determination of erythrocyte mean corpuscular volume (MCV)Ordered By: Reji Reyna on 09-30-2022 MCV (RBC) [Entitic vol] 108.2 fL 81-99 [facility] Hematocrit Auto (Bld) [Volum e fraction]Ordered By: Reji Reyna on 09-30-2022 Hematocrit (Bld) [Volume fraction] 31.6 % 37-47 [facility] Laboratory - Chemistry and C hemistry - challengeOrdered By: arline Reyna on 09-30-2022 ALP [Catalytic activity/Vol] 77 U/L 45-117 [facility] ALT [Catalytic activity/Vol] 20 U/L 13-56 [facility] CO2 [Moles/Vol] 24.0 mmol/L 21.0-32.0 [facility] Globulin (S) [Mass/Vol] 3.9 g/dL 2.2-4.2 [facility] Urea nitrogen/Creatinine [Mass ratio] 20.1 mg/mg 10-20 [facility] Laboratory - Hematology and Cell countsOrdered By: [place]a on 09-30-2022 Erythrocyte distribution width (RBC) [Entitic vol] 56.6 fL 35.1-43.9 [facility] Erythrocyte distribution width (RBC) [Ratio] 14.3 % 11.6-14.6 [facility] Immature granulocytes/100 WBC (Bld) 0.000 % 0.0-0.9 [facility] Comment on above: IG% - Immature Granu locytes (promyelocytes, myelocytes and metamyelocytes) > 1% indicates that a LEFT SHIFT is Present. MCH (RBC) [Entitic mass] 36.6 pg 27.0-32.0 [facility] Nucleated RBC/100 WBC (Bld) [Ratio] 0 % 0-5 [facility] MCHC Auto (RBC) [Mass/Vol]Or dered By: Reji Reyna on 09-30-2022 MCHC (RBC) [Mass/Vol] 33.9 g/dL 32-36 [facility] No Panel InformationOrdered By: Reji Reyna on 09-30-2022 Estimated GFR (MDRD) Amer 112 mL/min >60 [facility] Comment on above: GFR Calc Estimated GFR (MDRD) Non-Af Amer 92 mL/min >60 [facility] Comment on above: Non- GFR Calc Platelets bldOrdered By: Fredy Reyna on 09-30-2022 Platelets (Bld) [#/Vol] 104 10*3/uL 150-450 [facility] Serum or plasma albumin yonatan urement (mass/volume)Ordered By: Reji Reyna on 09-30-2022 Albumin [Mass/Vol] 2.7 g/dL 3.2-5.0 [facility] Serum or plasma albumin/glob ulin mass ratioOrdered By: Reji Reyna on 09-30-2022 Albumin/Globulin [Mass ratio] 0.7 {ratio} 0.9-2.4 [facility] Serum or plasma calcium yonatan urement (mass/volume)Ordered By: Reji Reyna on 09-30-2022 Calcium [Mass/Vol] 8.8 mg/dL 8.5-10.1 [facility] Serum or plasma creatinine m easurement (mass/volume)Ordered By: Reji Reyna on 09-30-2022 Creatinine [Mass/Vol] 0.65 mg/dL 0.55-1.02 [facility] Comment on above: The validity of the calculated GFR & GFRAA in patients over 70 years has not been determined. Clinical correlation is essential. Serum or plasma urea nitroge n measurement (mass/volume)Ordered By: Reji Reyna on 09-30-2022 Urea nitrogen [Mass/Vol] 13 mg/dL 7-18 [facility] Thin prep Papanicolaou smear with manual screeningOrdered By: Reji Reyna on 09-30-2022 Thin prep Papanicolaou smear with manual screening 27 U/L 15-37 [facility] Thin prep Papanicolaou smear with manual screening 5 5-15 [facility] Absolute lymphocyte countOrd ered By: Reji Reyna on 09-19-2022 Lymphocytes Auto (Unsp spec) [#/Vol] 1.39 10*3/uL 0.83-4.51 [facility] Basophil percentageOrdered B y: Angelitomerylmichaelgarfield Herronrejialyssa on 09-19-2022 Basophils/100 WBC (Bld) 0.5 % 0-1 [facility] Eosinophils/100 WBC (Bld) 2.0 % 0-5 [facility] Neutrophils (Bld) [#/Vol] 2.1 10*3/uL 2.0-7.7 [facility] Neutrophils/100 WBC (Bld) 51.6 % 47-70 [facility] WBC (Bld) [#/Vol] 4.1 10*3/uL 4.4-11.0 [facility] Blood erythrocytes count (nu mber/volume)Ordered By: Reji Reyna on 09-19-2022 RBC (Bld) [#/Vol] 2.84 10*6/uL 4.2-5.4 [facility] Blood hemoglobin measurement (mass/volume)Ordered By: Reji Reyna on 09-19-2022 Hemoglobin (Bld) [Mass/Vol] 10.2 g/dL 12.0-15.0 [facility] Blood lymphocytes/100 leukoc ytesOrdered By: Reji Reyna on 09-19-2022 Lymphocytes/100 WBC (Bld) 34.3 % 19-41 [facility] Blood monocytes/100 leukocyt esOrdered By: Reji Reyna on 09-19-2022 Monocytes/100 WBC (Bld) 11.4 % 0-10 [facility] Blood platelet mean volumeOr dered By: Reji Reyna on 09-19-2022 Platelet mean volume (Bld) [Entitic vol] 9.9 fL 6.2-12.0 [facility] Determination of erythrocyte mean corpuscular volume (MCV)Ordered By: Reji Reyna on 09-19-2022 MCV (RBC) [Entitic vol] 106.3 fL 81-99 [facility] Hematocrit Auto (Bld) [Volum e fraction]Ordered By: Reji Reyna on 09-19-2022 Hematocrit (Bld) [Volume fraction] 30.2 % 37-47 [facility] Laboratory - Hematology and Cell countsOrdered By: Angelitomerylmichaelgarfield Reyna on 09-19-2022 Erythrocyte distribution width (RBC) [Entitic vol] 56.1 fL 35.1-43.9 [facility] Erythrocyte distribution width (RBC) [Ratio] 14.3 % 11.6-14.6 [facility] Immature granulocytes/100 WBC (Bld) 0.200 % 0.0-0.9 [facility] Comment on above: IG% - Immature Granu locytes (promyelocytes, myelocytes and metamyelocytes) > 1% indicates that a LEFT SHIFT is Present. MCH (RBC) [Entitic mass] 35.9 pg 27.0-32.0 [facility] Nucleated RBC/100 WBC (Bld) [Ratio] 0 % 0-5 [facility] MCHC Auto (RBC) [Mass/Vol]Or dered By: Jasmichaelgarfield Reyna on 09-19-2022 MCHC (RBC) [Mass/Vol] 33.8 g/dL 32-36 [facility] Platelets bldOrdered By: Fredyalyssa ritter Maribell on 09-19-2022 Platelets (Bld) [#/Vol] 106 10*3/uL 150-450 [facility] Absolute lymphocyte countOrd ered By: Jamisongarfield Reyna on 09-02-2022 Lymphocytes Auto (Unsp spec) [#/Vol] 1.47 10*3/uL 0.83-4.51 [facility] Basophil percentageOrdered B y: Reji Reyna on 09-02-2022 Basophils/100 WBC (Bld) 0.8 % 0-1 [facility] Bilirubin [Mass/Vol] 0.90 mg/dL 0.20-1.00 [facility] Comment on above: For patients on eltr ombopag therapy, use of Dimension [place] TBIL is not recommended. Chloride [Moles/Vol] 110 mmol/L 98-107 [facility] Eosinophils/100 WBC (Bld) 1.6 % 0-5 [facility] Glucose [Mass/Vol] 83 mg/dL 74-106 [facility] Neutrophils (Bld) [#/Vol] 3.6 10*3/uL 2.0-7.7 [facility] Neutrophils/100 WBC (Bld) 60.1 % 47-70 [facility] Potassium [Moles/Vol] 4.0 mmol/L 3.5-5.1 [facility] Protein [Mass/Vol] 7.5 g/dL 6.4-8.2 [facility] Sodium [Moles/Vol] 141 mmol/L 136-145 [facility] WBC (Bld) [#/Vol] 6.1 10*3/uL 4.4-11.0 [facility] Blood erythrocytes count (nu mber/volume)Ordered By: Reji Reyna on 09-02-2022 RBC (Bld) [#/Vol] 3.50 10*6/uL 4.2-5.4 [facility] Blood hemoglobin measurement (mass/volume)Ordered By: Reji Reyna on 09-02-2022 Hemoglobin (Bld) [Mass/Vol] 12.2 g/dL 12.0-15.0 [facility] Blood lymphocytes/100 leukoc ytesOrdered By: Reji Reyna on 09-02-2022 Lymphocytes/100 WBC (Bld) 24.2 % 19-41 [facility] Blood monocytes/100 leukocyt esOrdered By: Reji Reyna on 09-02-2022 Monocytes/100 WBC (Bld) 13.0 % 0-10 [facility] Blood platelet mean volumeOr dered By: Reji Reyna on 09-02-2022 Platelet mean volume (Bld) [Entitic vol] 9.7 fL 6.2-12.0 [facility] Determination of erythrocyte mean corpuscular volume (MCV)Ordered By: Reji Reyna on 09-02-2022 MCV (RBC) [Entitic vol] 105.7 fL 81-99 [facility] Hematocrit Auto (Bld) [Volum e fraction]Ordered By: Reji Reyna on 09-02-2022 Hematocrit (Bld) [Volume fraction] 37.0 % 37-47 [facility] Laboratory - Chemistry and C hemistry - challengeOrdered By: Reji Reyna on 06-19-2023 ALP [Catalytic activity/Vol] 93 U/L 45-117 [facility] ALT [Catalytic activity/Vol] 24 U/L 13-56 [facility] CO2 [Moles/Vol] 25.0 mmol/L 21.0-32.0 [facility] Globulin (S) [Mass/Vol] 4.5 g/dL 2.2-4.2 [facility] Urea nitrogen/Creatinine [Mass ratio] 17.3 mg/mg 10-20 [facility] Laboratory - Hematology and Cell countsOrdered By: Reji Reyna on 09-02-2022 Erythrocyte distribution width (RBC) [Entitic vol] 53.6 fL 35.1-43.9 [facility] Erythrocyte distribution width (RBC) [Ratio] 13.7 % 11.6-14.6 [facility] Immature granulocytes/100 WBC (Bld) 0.300 % 0.0-0.9 [facility] Comment on above: IG% - Immature Granu locytes (promyelocytes, myelocytes and metamyelocytes) > 1% indicates that a LEFT SHIFT is Present. MCH (RBC) [Entitic mass] 34.9 pg 27.0-32.0 [facility] Nucleated RBC/100 WBC (Bld) [Ratio] 0 % 0-5 [facility] MCHC Auto (RBC) [Mass/Vol]Or dered By: Reji Reyna on 09-02-2022 MCHC (RBC) [Mass/Vol] 33.0 g/dL 32-36 [facility] No Panel InformationOrdered By: Reji Reyna on 09-02-2022 Estimated GFR (MDRD) Amer 103 mL/min >60 [facility] Comment on above: GFR Calc Estimated GFR (MDRD) Non-Af Amer 85 mL/min >60 [facility] Comment on above: Non- GFR Calc Platelets bldOrdered By: Fredy Reyna on 09-02-2022 Platelets (Bld) [#/Vol] 104 10*3/uL 150-450 [facility] Serum or plasma albumin yonatan urement (mass/volume)Ordered By: Reji Reyna on 09-02-2022 Albumin [Mass/Vol] 3.0 g/dL 3.2-5.0 [facility] Serum or plasma albumin/glob ulin mass ratioOrdered By: Reji Reyna on 09-02-2022 Albumin/Globulin [Mass ratio] 0.7 {ratio} 0.9-2.4 [facility] Serum or plasma calcium yonatan urement (mass/volume)Ordered By: Reji Reyna on 09-02-2022 Calcium [Mass/Vol] 9.5 mg/dL 8.5-10.1 [facility] Serum or plasma creatinine m easurement (mass/volume)Ordered By: [place] on 09-02-2022 Creatinine [Mass/Vol] 0.69 mg/dL 0.55-1.02 [facility] Comment on above: The validity of the calculated GFR & GFRAA in patients over 70 years has not been determined. Clinical correlation is essential. Serum or plasma urea nitroge n measurement (mass/volume)Ordered By: Reji Reyna on 09-02-2022 Urea nitrogen [Mass/Vol] 12 mg/dL 7-18 [facility] Thin prep Papanicolaou smear with manual screeningOrdered By: [place] Reyna on 09-02-2022 Thin prep Papanicolaou smear with manual screening 27 U/L 15- [facility] Thin prep Papanicolaou smear with manual screening 6 - [facility] Absolute lymphocyte countOrd ered By: Reji Reyna on 07-29-2022 Lymphocytes Auto (Unsp spec) [#/Vol] 1.03 10*3/uL 0.83-4.51 [facility] Basophil percentageOrdered B y: Reji Reyna on 07-29-2022 Basophils/100 WBC (Bld) 0.6 % 0-1 [facility] Bilirubin [Mass/Vol] 0.80 mg/dL 0.20-1.00 [facility] Comment on above: For patients on eltr ombopag therapy, use of Dimension [place] TBIL is not recommended. Chloride [Moles/Vol] 110 mmol/L 98-107 [facility] Eosinophils/100 WBC (Bld) 1.8 % 0-5 [facility] Glucose [Mass/Vol] 75 mg/dL 74-106 [facility] Neutrophils (Bld) [#/Vol] 3.1 10*3/uL 2.0-7.7 [facility] Neutrophils/100 WBC (Bld) 62.1 % 47-70 [facility] Potassium [Moles/Vol] 4.1 mmol/L 3.5-5.1 [facility] Protein [Mass/Vol] 6.9 g/dL 6.4-8.2 [facility] Sodium [Moles/Vol] 141 mmol/L 136-145 [facility] WBC (Bld) [#/Vol] 5.0 10*3/uL 4.4-11.0 [facility] Blood erythrocytes count (nu mber/volume)Ordered By: Reji Reyna on 07-29-2022 RBC (Bld) [#/Vol] 3.25 10*6/uL 4.2-5.4 [facility] Blood hemoglobin measurement (mass/volume)Ordered By: Reji Reyna on 07-29-2022 Hemoglobin (Bld) [Mass/Vol] 11.6 g/dL 12.0-15.0 [facility] Blood lymphocytes/100 leukoc ytesOrdered By: Reji Reyna on 07-29-2022 Lymphocytes/100 WBC (Bld) 20.8 % 19-41 [facility] Blood monocytes/100 leukocyt esOrdered By: Reji Reyna on 07-29-2022 Monocytes/100 WBC (Bld) 14.5 % 0-10 [facility] Blood platelet mean volumeOr dered By: Reji Reyna on 07-29-2022 Platelet mean volume (Bld) [Entitic vol] 9.7 fL 6.2-12.0 [facility] Determination of erythrocyte mean corpuscular volume (MCV)Ordered By: Reji Reyna on 07-29-2022 MCV (RBC) [Entitic vol] 106.5 fL 81-99 [facility] Hematocrit Auto (Bld) [Volum e fraction]Ordered By: Reji Reyna on 07-29-2022 Hematocrit (Bld) [Volume fraction] 34.6 % 37-47 [facility] Laboratory - Chemistry and C hemistry - challengeOrdered By: Reji Reyna on 07-29-2022 ALP [Catalytic activity/Vol] 91 U/L 45-117 [facility] ALT [Catalytic activity/Vol] 23 U/L 13-56 [facility] CO2 [Moles/Vol] 24.0 mmol/L 21.0-32.0 [facility] Globulin (S) [Mass/Vol] 4.1 g/dL 2.2-4.2 [facility] Urea nitrogen/Creatinine [Mass ratio] 23.1 mg/mg 10-20 [facility] Laboratory - Hematology and Cell countsOrdered By: Reji Reyna on 07-29-2022 Erythrocyte distribution width (RBC) [Entitic vol] 53.7 fL 35.1-43.9 [facility] Erythrocyte distribution width (RBC) [Ratio] 13.7 % 11.6-14.6 [facility] Immature granulocytes/100 WBC (Bld) 0.200 % 0.0-0.9 [facility] Comment on above: IG% - Immature Granu locytes (promyelocytes, myelocytes and metamyelocytes) > 1% indicates that a LEFT SHIFT is Present. MCH (RBC) [Entitic mass] 35.7 pg 27.0-32.0 [facility] Nucleated RBC/100 WBC (Bld) [Ratio] 0 % 0-5 [facility] MCHC Auto (RBC) [Mass/Vol]Or dered By: Reji Reyna on 07-29-2022 MCHC (RBC) [Mass/Vol] 33.5 g/dL 32-36 [facility] No Panel InformationOrdered By: Reji Reyna on 07-29-2022 Estimated GFR (MDRD) Amer 131 mL/min >60 [facility] Comment on above: GFR Calc Estimated GFR (MDRD) Non-Af Amer 109 mL/min >60 [facility] Comment on above: Non- GFR Calc Platelets bldOrdered By: Fredy Reyna on 07-29-2022 Platelets (Bld) [#/Vol] 112 10*3/uL 150-450 [facility] Serum or plasma albumin yonatan urement (mass/volume)Ordered By: Reji Reyna on 07-29-2022 Albumin [Mass/Vol] 2.8 g/dL 3.2-5.0 [facility] Serum or plasma albumin/glob ulin mass ratioOrdered By: Reji Reyna on 07-29-2022 Albumin/Globulin [Mass ratio] 0.7 {ratio} 0.9-2.4 [facility] Serum or plasma calcium yonatan urement (mass/volume)Ordered By: Reji Reyna on 07-29-2022 Calcium [Mass/Vol] 9.4 mg/dL 8.5-10.1 [facility] Serum or plasma creatinine m easurement (mass/volume)Ordered By: Reji Reyna on 07-29-2022 Creatinine [Mass/Vol] 0.56 mg/dL 0.55-1.02 [facility] Comment on above: The validity of the calculated GFR & GFRAA in patients over 70 years has not been determined. Clinical correlation is essential. Serum or plasma urea nitroge n measurement (mass/volume)Ordered By: Reji Reyna on 07-29-2022 Urea nitrogen [Mass/Vol] 13 mg/dL 7-18 [facility] Thin prep Papanicolaou smear with manual screeningOrdered By: arline Reyna on 07-29-2022 Thin prep Papanicolaou smear with manual screening 29 U/L 15-37 [facility] Thin prep Papanicolaou smear with manual screening 7 5-15 [facility] Absolute lymphocyte countOrd ered By: Reji Reyna on 07-01-2022 Lymphocytes Auto (Unsp spec) [#/Vol] 1.43 10*3/uL 0.83-4.51 [facility] Basophil percentageOrdered B y: Reji Reyna on 07-01-2022 Basophils/100 WBC (Bld) 1.0 % 0-1 [facility] Bilirubin [Mass/Vol] 0.60 mg/dL 0.20-1.00 [facility] Comment on above: For patients on eltr ombopag therapy, use of Dimension [place] TBIL is not recommended. Chloride [Moles/Vol] 109 mmol/L 98-107 [facility] Eosinophils/100 WBC (Bld) 2.0 % 0-5 [facility] Glucose [Mass/Vol] 80 mg/dL 74-106 [facility] Neutrophils (Bld) [#/Vol] 2.0 10*3/uL 2.0-7.7 [facility] Neutrophils/100 WBC (Bld) 49.1 % 47-70 [facility] Potassium [Moles/Vol] 4.1 mmol/L 3.5-5.1 [facility] Protein [Mass/Vol] 6.3 g/dL 6.4-8.2 [facility] Sodium [Moles/Vol] 140 mmol/L 136-145 [facility] WBC (Bld) [#/Vol] 4.1 10*3/uL 4.4-11.0 [facility] Blood erythrocytes count (nu mber/volume)Ordered By: Reji Reyna on 07-01-2022 RBC (Bld) [#/Vol] 3.07 10*6/uL 4.2-5.4 [facility] Blood hemoglobin measurement (mass/volume)Ordered By: Reji Reyna on 07-01-2022 Hemoglobin (Bld) [Mass/Vol] 10.9 g/dL 12.0-15.0 [facility] Blood lymphocytes/100 leukoc ytesOrdered By: Reji Reyna on 07-01-2022 Lymphocytes/100 WBC (Bld) 35.3 % 19-41 [facility] Blood monocytes/100 leukocyt esOrdered By: Reji Reyna on 07-01-2022 Monocytes/100 WBC (Bld) 12.1 % 0-10 [facility] Blood platelet mean volumeOr dered By: Reji Reyna on 07-01-2022 Platelet mean volume (Bld) [Entitic vol] 10.1 fL 6.2-12.0 [facility] Determination of erythrocyte mean corpuscular volume (MCV)Ordered By: Reji Reyna on 07-01-2022 MCV (RBC) [Entitic vol] 103.9 fL 81-99 [facility] Hematocrit Auto (Bld) [Volum e fraction]Ordered By: Reji Reyna on 07-01-2022 Hematocrit (Bld) [Volume fraction] 31.9 % 37-47 [facility] Laboratory - Chemistry and C hemistry - challengeOrdered By: Reji Reyna on 07-01-2022 ALP [Catalytic activity/Vol] 93 U/L 45-117 [facility] ALT [Catalytic activity/Vol] 23 U/L 13-56 [facility] CO2 [Moles/Vol] 26.0 mmol/L 21.0-32.0 [facility] Globulin (S) [Mass/Vol] 3.5 g/dL 2.2-4.2 [facility] Urea nitrogen/Creatinine [Mass ratio] 16.4 mg/mg 10-20 [facility] Laboratory - Hematology and Cell countsOrdered By: Reji Reyna on 07-01-2022 Erythrocyte distribution width (RBC) [Entitic vol] 53.4 fL 35.1-43.9 [facility] Erythrocyte distribution width (RBC) [Ratio] 13.9 % 11.6-14.6 [facility] Immature granulocytes/100 WBC (Bld) 0.500 % 0.0-0.9 [facility] Comment on above: IG% - Immature Granu locytes (promyelocytes, myelocytes and metamyelocytes) > 1% indicates that a LEFT SHIFT is Present. MCH (RBC) [Entitic mass] 35.5 pg 27.0-32.0 [facility] Nucleated RBC/100 WBC (Bld) [Ratio] 0 % 0-5 [facility] MCHC Auto (RBC) [Mass/Vol]Or dered By: Reji Reyna on 07-01-2022 MCHC (RBC) [Mass/Vol] 34.2 g/dL 32-36 [facility] No Panel InformationOrdered By: Reji Reyna on 07-01-2022 Estimated GFR (MDRD) Amer 120 mL/min >60 [facility] Comment on above: GFR Calc Estimated GFR (MDRD) Non-Af Amer 99 mL/min >60 [facility] Comment on above: Non- GFR Calc Platelets bldOrdered By: Fredy Reyna on 07-01-2022 Platelets (Bld) [#/Vol] 104 10*3/uL 150-450 [facility] Serum or plasma albumin yonatan urement (mass/volume)Ordered By: Reji Reyna on 07-01-2022 Albumin [Mass/Vol] 2.8 g/dL 3.2-5.0 [facility] Serum or plasma albumin/glob ulin mass ratioOrdered By: Reji Reyna on 07-01-2022 Albumin/Globulin [Mass ratio] 0.8 {ratio} 0.9-2.4 [facility] Serum or plasma calcium yonatan urement (mass/volume)Ordered By: Reji Reyna on 07-01-2022 Calcium [Mass/Vol] 9.3 mg/dL 8.5-10.1 [facility] Serum or plasma creatinine m easurement (mass/volume)Ordered By: Reji Reyna on 07-01-2022 Creatinine [Mass/Vol] 0.61 mg/dL 0.55-1.02 [facility] Comment on above: The validity of the calculated GFR & GFRAA in patients over 70 years has not been determined. Clinical correlation is essential. Serum or plasma urea nitroge n measurement (mass/volume)Ordered By: Reji Reyna on 07-01-2022 Urea nitrogen [Mass/Vol] 10 mg/dL 7-18 [facility] Thin prep Papanicolaou smear with manual screeningOrdered By: Reji Reyna on 07-01-2022 Thin prep Papanicolaou smear with manual screening 28 U/L 15-37 [facility] Thin prep Papanicolaou smear with manual screening 5 5-15 [facility] XR RIBS 2V AP/OBL RIGHTon [facility] Absolute lymphocyte countOrd ered By: Reji Reyna on 06-03-2022 Lymphocytes Auto (Unsp spec) [#/Vol] 1.54 10*3/uL 0.83-4.51 [facility] Basophil percentageOrdered B y: Reji Reyna on 06-03-2022 Basophils/100 WBC (Bld) 0.5 % 0-1 [facility] Bilirubin [Mass/Vol] 0.60 mg/dL 0.20-1.00 [facility] Comment on above: For patients on eltr ombopag therapy, use of Dimension [place] TBIL is not recommended. Chloride [Moles/Vol] 108 mmol/L 98-107 [facility] Eosinophils/100 WBC (Bld) 2.4 % 0-5 [facility] Glucose [Mass/Vol] 86 mg/dL 74-106 [facility] Neutrophils (Bld) [#/Vol] 3.2 10*3/uL 2.0-7.7 [facility] Neutrophils/100 WBC (Bld) 58.6 % 47-70 [facility] Potassium [Moles/Vol] 4.2 mmol/L 3.5-5.1 [facility] Protein [Mass/Vol] 7.2 g/dL 6.4-8.2 [facility] Sodium [Moles/Vol] 141 mmol/L 136-145 [facility] WBC (Bld) [#/Vol] 5.5 10*3/uL 4.4-11.0 [facility] Blood erythrocytes count (nu mber/volume)Ordered By: Reji Reyna on 06-03-2022 RBC (Bld) [#/Vol] 3.73 10*6/uL 4.2-5.4 [facility] Blood hemoglobin measurement (mass/volume)Ordered By: Reji Reyna on 06-03-2022 Hemoglobin (Bld) [Mass/Vol] 13.1 g/dL 12.0-15.0 [facility] Blood lymphocytes/100 leukoc ytesOrdered By: Reji Reyna on 06-03-2022 Lymphocytes/100 WBC (Bld) 27.8 % 19-41 [facility] Blood manual differential co mment interpretation (narrative result)Ordered By: Reji Reyna on 06-03-2022 Manual differential comment [place] (Bld) [Interp] SCANNED [facility] Blood monocytes/100 leukocyt esOrdered By: Reji Reyna on 06-03-2022 Monocytes/100 WBC (Bld) 10.3 % 0-10 [facility] Blood platelet mean volumeOr dered By: Reji Reyna on 06-03-2022 Platelet mean volume (Bld) [Entitic vol] 9.9 fL 6.2-12.0 [facility] Determination of erythrocyte mean corpuscular volume (MCV)Ordered By: Reji Reyna on 06-03-2022 MCV (RBC) [Entitic vol] 102.7 fL 81-99 [facility] Hematocrit Auto (Bld) [Volum e fraction]Ordered By: [place] on 06-03-2022 Hematocrit (Bld) [Volume fraction] 38.3 % 37-47 [facility] Laboratory - Chemistry and C hemistry - challengeOrdered By: [facility] Gopalalyssa on 06-03-2022 ALP [Catalytic activity/Vol] 98 U/L 45-117 [facility] ALT [Catalytic activity/Vol] 33 U/L 13-56 [facility] CO2 [Moles/Vol] 26.0 mmol/L 21.0-32.0 [facility] Globulin (S) [Mass/Vol] 4.2 g/dL 2.2-4.2 [facility] Urea nitrogen/Creatinine [Mass ratio] 28.5 mg/mg 10-20 [facility] Laboratory - Hematology and Cell countsOrdered By: [place] on 06-03-2022 Anisocytosis Ql (Bld) 1+ [facility] Erythrocyte distribution width (RBC) [Entitic vol] 68.7 fL 35.1-43.9 [facility] Erythrocyte distribution width (RBC) [Ratio] 18.0 % 11.6-14.6 [facility] Immature granulocytes/100 WBC (Bld) 0.400 % 0.0-0.9 [facility] Comment on above: IG% - Immature Granu locytes (promyelocytes, myelocytes and metamyelocytes) > 1% indicates that a LEFT SHIFT is Present. MCH (RBC) [Entitic mass] 35.1 pg 27.0-32.0 [facility] Nucleated RBC/100 WBC (Bld) [Ratio] 0 % 0-5 [facility] MCHC Auto (RBC) [Mass/Vol]Or dered By: [place] on 06-03-2022 MCHC (RBC) [Mass/Vol] 34.2 g/dL 32-36 [facility] No Panel InformationOrdered By: Reji Reyna on 06-03-2022 Estimated GFR (MDRD) Amer 123 mL/min >60 [facility] Comment on above: GFR Calc Estimated GFR (MDRD) Non-Af Amer 101 mL/min >60 [facility] Comment on above: Non- GFR Calc Platelets bldOrdered By: Fredy Reyna on 06-03-2022 Platelets (Bld) [#/Vol] 113 10*3/uL 150-450 [facility] Serum or plasma albumin yonatan urement (mass/volume)Ordered By: Reji Reyna on 06-03-2022 Albumin [Mass/Vol] 3.0 g/dL 3.2-5.0 [facility] Serum or plasma albumin/glob ulin mass ratioOrdered By: Reji Reyna on 06-03-2022 Albumin/Globulin [Mass ratio] 0.7 {ratio} 0.9-2.4 [facility] Serum or plasma calcium yonatan urement (mass/volume)Ordered By: Reji Reyna on 06-03-2022 Calcium [Mass/Vol] 9.5 mg/dL 8.5-10.1 [facility] Serum or plasma creatinine m easurement (mass/volume)Ordered By: Reji Reyna on 06-03-2022 Creatinine [Mass/Vol] 0.60 mg/dL 0.55-1.02 [facility] Comment on above: The validity of the calculated GFR & GFRAA in patients over 70 years has not been determined. Clinical correlation is essential. Serum or plasma urea nitroge n measurement (mass/volume)Ordered By: Reji Reyna on 06-03-2022 Urea nitrogen [Mass/Vol] 17 mg/dL 7-18 [facility] Thin prep Papanicolaou smear with manual screeningOrdered By: Reji Reyna on 06-03-2022 Thin prep Papanicolaou smear with manual screening 33 U/L 15-37 [facility] Thin prep Papanicolaou smear with manual screening 7 5-15 [facility] Absolute lymphocyte countOrd ered By: Alejo Salcido on 05-06-2022 Lymphocytes Auto (Unsp spec) [#/Vol] 1.42 10*3/uL 0.83-4.51 [facility] Basophil percentageOrdered B y: Alejo Salcido on 05-06-2022 Basophils/100 WBC (Bld) 0.6 % 0-1 [facility] Bilirubin [Mass/Vol] 0.50 mg/dL 0.20-1.00 [facility] Comment on above: For patients on eltr ombopag therapy, use of Dimension [place] TBIL is not recommended. Chloride [Moles/Vol] 110 mmol/L 98-107 [facility] Eosinophils/100 WBC (Bld) 2.1 % 0-5 [facility] Glucose [Mass/Vol] 84 mg/dL 74-106 [facility] Neutrophils (Bld) [#/Vol] 2.6 10*3/uL 2.0-7.7 [facility] Neutrophils/100 WBC (Bld) 53.7 % 47-70 [facility] Potassium [Moles/Vol] 4.1 mmol/L 3.5-5.1 [facility] Protein [Mass/Vol] 6.9 g/dL 6.4-8.2 [facility] Sodium [Moles/Vol] 142 mmol/L 136-145 [facility] WBC (Bld) [#/Vol] 4.8 10*3/uL 4.4-11.0 [facility] Blood erythrocytes count (nu mber/volume)Ordered By: Alejo Salcido on 05-06-2022 RBC (Bld) [#/Vol] 3.47 10*6/uL 4.2-5.4 [facility] Blood hemoglobin measurement (mass/volume)Ordered By: Alejo Salcido on 05-06-2022 Hemoglobin (Bld) [Mass/Vol] 11.1 g/dL 12.0-15.0 [facility] Blood lymphocytes/100 leukoc ytesOrdered By: Alejo Salcido on 05-06-2022 Lymphocytes/100 WBC (Bld) 29.8 % 19-41 [facility] Blood monocytes/100 leukocyt esOrdered By: Alejo Salcido on 05-06-2022 Monocytes/100 WBC (Bld) 13.4 % 0-10 [facility] Blood platelet mean volumeOr dered By: Alejo Salcido on 05-06-2022 Platelet mean volume (Bld) [Entitic vol] 9.4 fL 6.2-12.0 [facility] Determination of erythrocyte mean corpuscular volume (MCV)Ordered By: Alejo Salcido on 05-06-2022 MCV (RBC) [Entitic vol] 98.3 fL 81-99 [facility] Hematocrit Auto (Bld) [Volum e fraction]Ordered By: Alejo Salcido on 05-06-2022 Hematocrit (Bld) [Volume fraction] 34.1 % 37-47 [facility] Laboratory - Chemistry and C hemistry - challengeOrdered By: Alejo Salcido on 05-06-2022 ALP [Catalytic activity/Vol] 117 U/L 45-117 [facility] ALT [Catalytic activity/Vol] 21 U/L 13-56 [facility] CO2 [Moles/Vol] 26.0 mmol/L 21.0-32.0 [facility] Globulin (S) [Mass/Vol] 4.3 g/dL 2.2-4.2 [facility] Urea nitrogen/Creatinine [Mass ratio] 15.9 mg/mg 10-20 [facility] Laboratory - Hematology and Cell countsOrdered By: Alejo Salcido on 05-06-2022 Anisocytosis Ql (Bld) 1+ [facility] Erythrocyte distribution width (RBC) [Entitic vol] 81.2 fL 35.1-43.9 [facility] Erythrocyte distribution width (RBC) [Ratio] 23.4 % 11.6-14.6 [facility] Immature granulocytes/100 WBC (Bld) 0.400 % 0.0-0.9 [facility] Comment on above: IG% - Immature Granu locytes (promyelocytes, myelocytes and metamyelocytes) > 1% indicates that a LEFT SHIFT is Present. MCH (RBC) [Entitic mass] 32.0 pg 27.0-32.0 [facility] Nucleated RBC/100 WBC (Bld) [Ratio] 0 % 0-5 [facility] MCHC Auto (RBC) [Mass/Vol]Or dered By: Alejo Salcido on 05-06-2022 MCHC (RBC) [Mass/Vol] 32.6 g/dL 32-36 [facility] No Panel InformationOrdered By: Alejo Salcido on 05-06-2022 Estimated GFR (MDRD) Amer 130 mL/min >60 [facility] Comment on above: GFR Calc Estimated GFR (MDRD) Non-Af Amer 108 mL/min >60 [facility] Comment on above: Non- GFR Calc Thyroid Stimulating Hormone (TSH) 1.29 uIU/mL 0.358-3.74 [facility] Platelets bldOrdered By: Levi Salcido on 05-06-2022 Platelets (Bld) [#/Vol] 110 10*3/uL 150-450 [facility] Serum or plasma albumin yonatan urement (mass/volume)Ordered By: Alejo Salcido on 05-06-2022 Albumin [Mass/Vol] 2.6 g/dL 3.2-5.0 [facility] Serum or plasma albumin/glob ulin mass ratioOrdered By: Alejo Salcido on 05-06-2022 Albumin/Globulin [Mass ratio] 0.6 {ratio} 0.9-2.4 [facility] Serum or plasma calcium yonatan urement (mass/volume)Ordered By: Alejo Salcido on 05-06-2022 Calcium [Mass/Vol] 9.1 mg/dL 8.5-10.1 [facility] Serum or plasma creatinine m easurement (mass/volume)Ordered By: Alejo Salcido on 05-06-2022 Creatinine [Mass/Vol] 0.57 mg/dL 0.55-1.02 [facility] Comment on above: The validity of the calculated GFR & GFRAA in patients over 70 years has not been determined. Clinical correlation is essential. Serum or plasma urea nitroge n measurement (mass/volume)Ordered By: Alejo Salcido on 05-06-2022 Urea nitrogen [Mass/Vol] 9 mg/dL 7-18 [facility] Thin prep Papanicolaou smear with manual screeningOrdered By: Alejo Salcido on 05-06-2022 Thin prep Papanicolaou smear with manual screening 26 U/L 15-37 [facility] Thin prep Papanicolaou smear with manual screening 6 5-15 [facility] Absolute lymphocyte countOrd ered By: Reji Reyna on 04-01-2022 Lymphocytes Auto (Unsp spec) [#/Vol] 1.69 10*3/uL 0.83-4.51 [facility] Basophil percentageOrdered B y: Reji Reyna on 04-01-2022 Basophils/100 WBC (Bld) 0.6 % 0-1 [facility] Bilirubin [Mass/Vol] 0.50 mg/dL 0.20-1.00 [facility] Comment on above: For patients on eltr ombopag therapy, use of Dimension [place] TBIL is not recommended. Chloride [Moles/Vol] 110 mmol/L 98-107 [facility] Eosinophils/100 WBC (Bld) 1.8 % 0-5 [facility] Glucose [Mass/Vol] 81 mg/dL 74-106 [facility] Neutrophils (Bld) [#/Vol] 2.7 10*3/uL 2.0-7.7 [facility] Neutrophils/100 WBC (Bld) 53.0 % 47-70 [facility] Potassium [Moles/Vol] 4.0 mmol/L 3.5-5.1 [facility] Protein [Mass/Vol] 6.9 g/dL 6.4-8.2 [facility] Sodium [Moles/Vol] 145 mmol/L 136-145 [facility] WBC (Bld) [#/Vol] 5.1 10*3/uL 4.4-11.0 [facility] Blood erythrocytes count (nu mber/volume)Ordered By: Reji Reyna on 04-01-2022 RBC (Bld) [#/Vol] 3.56 10*6/uL 4.2-5.4 [facility] Blood hemoglobin measurement (mass/volume)Ordered By: Reji Reyna on 04-01-2022 Hemoglobin (Bld) [Mass/Vol] 10.5 g/dL 12.0-15.0 [facility] Blood lymphocytes/100 leukoc ytesOrdered By: Reji Reyna on 04-01-2022 Lymphocytes/100 WBC (Bld) 33.2 % 19-41 [facility] Blood monocytes/100 leukocyt esOrdered By: Reji Reyna on 04-01-2022 Monocytes/100 WBC (Bld) 11.2 % 0-10 [facility] Blood platelet mean volumeOr dered By: Reji Reyna on 04-01-2022 Platelet mean volume (Bld) [Entitic vol] 10.3 fL 6.2-12.0 [facility] Determination of erythrocyte mean corpuscular volume (MCV)Ordered By: Reji Reyna on 04-01-2022 MCV (RBC) [Entitic vol] 92.7 fL 81-99 [facility] Hematocrit Auto (Bld) [Volum e fraction]Ordered By: Reji Reyna on 04-01-2022 Hematocrit (Bld) [Volume fraction] 33.0 % 37-47 [facility] Laboratory - Chemistry and C hemistry - challengeOrdered By: Reji Reyna on 04-01-2022 ALP [Catalytic activity/Vol] 75 U/L 45-117 [facility] ALT [Catalytic activity/Vol] 21 U/L 13-56 [facility] CO2 [Moles/Vol] 25.0 mmol/L 21.0-32.0 [facility] Globulin (S) [Mass/Vol] 4.3 g/dL 2.2-4.2 [facility] Urea nitrogen/Creatinine [Mass ratio] 18.4 mg/mg 10-20 [facility] Laboratory - Hematology and Cell countsOrdered By: Reji Reyna on 04-01-2022 Anisocytosis Ql (Bld) RARE [facility] Erythrocyte distribution width (RBC) [Entitic vol] 73.0 fL 35.1-43.9 [facility] Erythrocyte distribution width (RBC) [Ratio] 22.1 % 11.6-14.6 [facility] Immature granulocytes/100 WBC (Bld) 0.200 % 0.0-0.9 [facility] Comment on above: IG% - Immature Granu locytes (promyelocytes, myelocytes and metamyelocytes) > 1% indicates that a LEFT SHIFT is Present. MCH (RBC) [Entitic mass] 29.5 pg 27.0-32.0 [facility] Nucleated RBC/100 WBC (Bld) [Ratio] 0 % 0-5 [facility] MCHC Auto (RBC) [Mass/Vol]Or dered By: Reji Reyna on 04-01-2022 MCHC (RBC) [Mass/Vol] 31.8 g/dL 32-36 [facility] No Panel InformationOrdered By: Reji Reyna on 04-01-2022 Estimated GFR (MDRD) Amer 101 mL/min >60 [facility] Comment on above: GFR Calc Estimated GFR (MDRD) Non-Af Amer 83 mL/min >60 [facility] Comment on above: Non- GFR Calc Platelets bldOrdered By: Fredy Reyna on 04-01-2022 Platelets (Bld) [#/Vol] 127 10*3/uL 150-450 [facility] Serum or plasma albumin yonatan urement (mass/volume)Ordered By: Reji Reyna on 04-01-2022 Albumin [Mass/Vol] 2.6 g/dL 3.2-5.0 [facility] Serum or plasma albumin/glob ulin mass ratioOrdered By: Reji Reyna on 04-01-2022 Albumin/Globulin [Mass ratio] 0.6 {ratio} 0.9-2.4 [facility] Serum or plasma calcium yonatan urement (mass/volume)Ordered By: Reji Reyna on 04-01-2022 Calcium [Mass/Vol] 9.1 mg/dL 8.5-10.1 [facility] Serum or plasma creatinine m easurement (mass/volume)Ordered By: Reji Reyna on 04-01-2022 Creatinine [Mass/Vol] 0.71 mg/dL 0.55-1.02 [facility] Comment on above: The validity of the calculated GFR & GFRAA in patients over 70 years has not been determined. Clinical correlation is essential. Serum or plasma urea nitroge n measurement (mass/volume)Ordered By: Reji Reyna on 04-01-2022 Urea nitrogen [Mass/Vol] 13 mg/dL 7-18 [facility] Thin prep Papanicolaou smear with manual screeningOrdered By: Reji Reyna on 04-01-2022 Thin prep Papanicolaou smear with manual screening 24 U/L 15-37 [facility] Thin prep Papanicolaou smear with manual screening 10 5-15 [facility] CBC W Ordered Manual Differe ntial panel (Bld)on 03-22-2022 Basophils (Bld) [#/Vol] 0.05 10*3/uL <0.11 k/uL [facility] Basophils/100 WBC (Bld) 0.8 % [facility] Eosinophils (Bld) [#/Vol] 0.09 10*3/uL <0.46 k/uL [facility] Eosinophils/100 WBC (Bld) 1.4 % [facility] Erythrocyte distribution width (RBC) [Ratio] 20.3 % High 11.5 - 15.0 % [facility] Hematocrit (Bld) [Volume fraction] 33.9 % Low 36.0 - 46.0 % [facility] Hemoglobin (Bld) [Mass/Vol] 10.8 g/dL Low 11.5 - 15.5 g/dL [facility] Immature granulocytes (Bld) [#/Vol] <0.10 k/uL [facility] Immature granulocytes/100 WBC (Bld) 0.3 % [facility] Lymphocytes (Bld) [#/Vol] 1.43 10*3/uL 1.00 - 4.00 k/uL [facility] Lymphocytes/100 WBC (Bld) 22.8 % [facility] MCH (RBC) [Entitic mass] 27.6 pg 26.0 - 34.[address] [facility] MCHC (RBC) [Mass/Vol] 31.9 g/dL 30.5 - 36.0 g/dL [facility] MCV (RBC) [Entitic vol] 86.7 fL 80.0 - 100.[address] [facility] Monocytes (Bld) [#/Vol] 0.85 10*3/uL <0.87 k/uL [facility] Monocytes/100 WBC (Bld) 13.6 % [facility] Neutrophils (Bld) [#/Vol] 3.83 10*3/uL 1.45 - 7.50 k/uL [facility] Neutrophils/100 WBC (Bld) 61.1 % [facility] Platelet mean volume (Bld) [Entitic vol] 9.7 fL 9.0 - 12.7 fL [facility] Platelets (Bld) [#/Vol] 136 10*3/uL Low 150 - 400 k/uL [facility] RBC (Bld) [#/Vol] 3.91 10*6/uL 3.90 - 5.2 0 m/uL [facility] WBC (Bld) [#/Vol] 6.27 10*3/uL 3.70 - 11.00 k/uL [facility] Transferrin receptor.soluble [Mass/Vol]on 03-15-2022 Transferrin receptor.soluble [Moles/Vol] 8.7 mg/L High 1.9 - 4.4 mg/L [facility] Comprehensive metabolic 2000 panelon 03-14-2022 Albumin [Mass/Vol] 3.6 g/dL Low 3.9 - 4.9 g/dL [facility] ALP [Catalytic activity/Vol] 100 U/L 34 - 123 U/L [facility] ALT [Catalytic activity/Vol] 14 U/L 7 - 38 U/L [facility] Anion gap [Moles/Vol] 9 mmol/L 9 - 18 mmol/L [facility] AST [Catalytic activity/Vol] 27 U/L 13 - 35 U/L [facility] Bilirubin [Mass/Vol] 0.6 mg/dL 0.2 - 1 .3 mg/dL [facility] Calcium [Mass/Vol] 9.4 mg/dL 8.5 - 10. 2 mg/dL [facility] Chloride [Moles/Vol] 104 mmol/L 97 - 10 5 mmol/L [facility] CO2 [Moles/Vol] 24 mmol/L 22 - 30 mmol/L [facility] Creatinine [Mass/Vol] 0.63 mg/dL 0.58 - 0.96 mg/dL [facility] Estimated Glomerular Filtration Rate 87 mL/min/1.73m >=60 mL/min/1.[address] [facility] Glucose [Mass/Vol] 120 mg/dL High 74 - 99 mg/dL [facility] Potassium [Moles/Vol] 3.9 mmol/L 3.7 - 5.1 mmol/L [facility] Protein [Mass/Vol] 7.3 g/dL 6.3 - 8.0 g/dL [facility] Sodium [Moles/Vol] 137 mmol/L 136 - 144 mmol/L [facility] Urea nitrogen [Mass/Vol] 14 mg/dL 7 - 21 mg/dL [facility] Iron and Iron binding capaci ty panelon 12-29-2022 Iron [Mass/Vol] 249 ug/dL High 41 - 186 ug/dL [facility] Iron binding capacity [Mass/Vol] 383 ug/dL 232 - 386 ug/dL [facility] Iron/TIBC [Molar ratio] 65.0 % High 15.0 - 57.0 % [facility] Laboratory - Chemistry and C hemistry - challengeon 03-14-2022 Ferritin [Mass/Vol] 45.9 ng/mL 14.7 - 205.1 ng/mL [facility] LDH [Catalytic activity/Vol] 194 U/L 135 - 214 U/L [facility] Laboratory - Hematology and Cell countson 03-14-2022 Reticulocytes (Bld) [#/Vol] 0.88485 10*3/uL 0.018 - 0.100 M/uL [facility] Reticulocytes (Bld) [#/Vol]o n 03-14-2022 Reticulocytes/100 RBC (Bld) 1.3 % 0.4 - 2.0 % [facility] Absolute lymphocyte countOrd ered By: Mitchell Living on 03-07-2022 Lymphocytes Auto (Unsp spec) [#/Vol] 1.39 10*3/uL 0.83-4.51 [facility] Basophil percentageOrdered B y: Mitchell Living on 03-07-2022 Basophils/100 WBC (Bld) 1.0 % 0-1 [facility] Eosinophils/100 WBC (Bld) 2.0 % 0-5 [facility] Neutrophils (Bld) [#/Vol] 2.0 10*3/uL 2.0-7.7 [facility] Neutrophils/100 WBC (Bld) 48.5 % 47-70 [facility] WBC (Bld) [#/Vol] 4.1 10*3/uL 4.4-11.0 [facility] Blood erythrocytes count (nu mber/volume)Ordered By: Mitchell Living on 03-07-2022 RBC (Bld) [#/Vol] 3.93 10*6/uL 4.2-5.4 [facility] Blood hemoglobin measurement (mass/volume)Ordered By: Mitchell Living on 03-07-2022 Hemoglobin (Bld) [Mass/Vol] 10.8 g/dL 12.0-15.0 [facility] Blood lymphocytes/100 leukoc ytesOrdered By: [place] [facility] on 03-07-2022 Lymphocytes/100 WBC (Bld) 34.1 % 19-41 [facility] Blood monocytes/100 leukocyt esOrdered By: [place] [facility] on 03-07-2022 Monocytes/100 WBC (Bld) 14.2 % 0-10 [facility] Blood platelet mean volumeOr dered By: [place] [facility] on 03-07-2022 Platelet mean volume (Bld) [Entitic vol] 9.7 fL 6.2-12.0 [facility] Determination of erythrocyte mean corpuscular volume (MCV)Ordered By: [place] [facility] on 03-07-2022 MCV (RBC) [Entitic vol] 84.5 fL 81-99 [facility] Hematocrit Auto (Bld) [Volum e fraction]Ordered By: [facility] on 03-07-2022 Hematocrit (Bld) [Volume fraction] 33.2 % 37-47 [facility] Laboratory - Hematology and Cell countsOrdered By: [facility] on 03-07-2022 Erythrocyte distribution width (RBC) [Entitic vol] 50.5 fL 35.1-43.9 [facility] Erythrocyte distribution width (RBC) [Ratio] 16.3 % 11.6-14.6 [facility] Immature granulocytes/100 WBC (Bld) 0.200 % 0.0-0.9 [facility] Comment on above: IG% - Immature Granu locytes (promyelocytes, myelocytes and metamyelocytes) > 1% indicates that a LEFT SHIFT is Present. MCH (RBC) [Entitic mass] 27.5 pg 27.0-32.0 [facility] Nucleated RBC/100 WBC (Bld) [Ratio] 0 % 0-5 [facility] MCHC Auto (RBC) [Mass/Vol]Or dered By: [place] [facility] on 03-07-2022 MCHC (RBC) [Mass/Vol] 32.5 g/dL 32-36 [facility] Comment on above: Delta: 30.2 on 03/04-0443 Platelets bldOrdered By: Cesar cruz Living on 03-07-2022 Platelets (Bld) [#/Vol] 155 10*3/uL 150-450 [facility] Absolute lymphocyte countOrd ered By: Alejo Salcido on 03-04-2022 Lymphocytes Auto (Unsp spec) [#/Vol] 1.30 10*3/uL 0.83-4.51 [facility] Basophil percentageOrdered B y: Alejo Salcido on 03-04-2022 Basophils/100 WBC (Bld) 0.5 % 0-1 [facility] Bilirubin [Mass/Vol] 0.50 mg/dL 0.20-1.00 [facility] Comment on above: For patients on eltr ombopag therapy, use of Dimension [place] TBIL is not recommended. Chloride [Moles/Vol] 113 mmol/L 98-107 [facility] Eosinophils/100 WBC (Bld) 2.8 % 0-5 [facility] Glucose [Mass/Vol] 90 mg/dL 74-106 [facility] Neutrophils (Bld) [#/Vol] 2.1 10*3/uL 2.0-7.7 [facility] Neutrophils/100 WBC (Bld) 51.4 % 47-70 [facility] Potassium [Moles/Vol] 4.4 mmol/L 3.5-5.1 [facility] Protein [Mass/Vol] 7.2 g/dL 6.4-8.2 [facility] Sodium [Moles/Vol] 143 mmol/L 136-145 [facility] WBC (Bld) [#/Vol] 4.0 10*3/uL 4.4-11.0 [facility] Blood erythrocytes count (nu mber/volume)Ordered By: Alejo Salcido on 03-04-2022 RBC (Bld) [#/Vol] 2.94 10*6/uL 4.2-5.4 [facility] Blood hemoglobin measurement (mass/volume)Ordered By: Alejo Salcido on 03-04-2022 Hemoglobin (Bld) [Mass/Vol] 7.7 g/dL 12.0-15.0 [facility] Blood lymphocytes/100 leukoc ytesOrdered By: Alejo Salcido on 03-04-2022 Lymphocytes/100 WBC (Bld) 32.5 % 19-41 [facility] Blood monocytes/100 leukocyt esOrdered By: Alejo Salcido on 03-04-2022 Monocytes/100 WBC (Bld) 12.8 % 0-10 [facility] Blood platelet mean volumeOr dered By: Alejo Salcido on 03-04-2022 Platelet mean volume (Bld) [Entitic vol] 11.0 fL 6.2-12.0 [facility] Determination of erythrocyte mean corpuscular volume (MCV)Ordered By: Alejo Salcido on 03-04-2022 MCV (RBC) [Entitic vol] 86.7 fL 81-99 [facility] Hematocrit Auto (Bld) [Volum e fraction]Ordered By: Alejo Salcido on 03-04-2022 Hematocrit (Bld) [Volume fraction] 25.5 % 37-47 [facility] Laboratory - Chemistry and C hemistry - challengeOrdered By: Alejo Salcido on 03-04-2022 ALP [Catalytic activity/Vol] 87 U/L 45-117 [facility] ALT [Catalytic activity/Vol] 19 U/L 13-56 [facility] CO2 [Moles/Vol] 25.0 mmol/L 21.0-32.0 [facility] Globulin (S) [Mass/Vol] 4.5 g/dL 2.2-4.2 [facility] Urea nitrogen/Creatinine [Mass ratio] 18.4 mg/mg 10-20 [facility] Laboratory - Hematology and Cell countsOrdered By: Alejo Salcido on 03-04-2022 Erythrocyte distribution width (RBC) [Entitic vol] 53.1 fL 35.1-43.9 [facility] Erythrocyte distribution width (RBC) [Ratio] 17.1 % 11.6-14.6 [facility] Immature granulocytes/100 WBC (Bld) 0.000 % 0.0-0.9 [facility] Comment on above: IG% - Immature Granu locytes (promyelocytes, myelocytes and metamyelocytes) > 1% indicates that a LEFT SHIFT is Present. MCH (RBC) [Entitic mass] 26.2 pg 27.0-32.0 [facility] Nucleated RBC/100 WBC (Bld) [Ratio] 0 % 0-5 [facility] MCHC Auto (RBC) [Mass/Vol]Or dered By: Alejo Salcido on 03-04-2022 MCHC (RBC) [Mass/Vol] 30.2 g/dL 32-36 [facility] No Panel InformationOrdered By: Alejo Salcido on 03-04-2022 Estimated GFR (MDRD) Amer 101 mL/min >60 [facility] Comment on above: GFR Calc Estimated GFR (MDRD) Non-Af Amer 83 mL/min >60 [facility] Comment on above: Non- GFR Calc Platelets bldOrdered By: Levi Salcido on 03-04-2022 Platelets (Bld) [#/Vol] 163 10*3/uL 150-450 [facility] Serum or plasma albumin yonatan urement (mass/volume)Ordered By: Alejo Salcido on 03-04-2022 Albumin [Mass/Vol] 2.7 g/dL 3.2-5.0 [facility] Serum or plasma albumin/glob ulin mass ratioOrdered By: Alejo Salcido on 03-04-2022 Albumin/Globulin [Mass ratio] 0.6 {ratio} 0.9-2.4 [facility] Serum or plasma calcium yonatan urement (mass/volume)Ordered By: Alejo Salcido on 03-04-2022 Calcium [Mass/Vol] 9.1 mg/dL 8.5-10.1 [facility] Serum or plasma creatinine m easurement (mass/volume)Ordered By: Alejo Salcido on 03-04-2022 Creatinine [Mass/Vol] 0.71 mg/dL 0.55-1.02 [facility] Comment on above: The validity of the calculated GFR & GFRAA in patients over 70 years has not been determined. Clinical correlation is essential. Serum or plasma urea nitroge n measurement (mass/volume)Ordered By: Alejo Salcido on 03-04-2022 Urea nitrogen [Mass/Vol] 13 mg/dL 7-18 [facility] Thin prep Papanicolaou smear with manual screeningOrdered By: Alejo Salcido on 03-04-2022 Thin prep Papanicolaou smear with manual screening 22 U/L 15-37 [facility] Thin prep Papanicolaou smear with manual screening 5 5-15 [facility] Culture, urineOrdered By: Angelito Reyna on 02-23-2022 Bacteria identified Cx Nom (U) Culture exhibits no growth. [facility] Bilirubin Test strip Ql (U)O rdered By: Reji Reyna on 02-21-2022 Bilirubin Ql (U) Negative Negative [facility] Ketones Test strip Ql (U)Ord ered By: Reji Reyna on 02-21-2022 Ketones Ql (U) 5 mg/dl Negative [facility] Nitrite Test strip Ql (U)Ord ered By: Reji Reyna on 02-21-2022 Nitrite Ql (U) Negative Negative [facility] Protein Test strip Ql (U)Ord ered By: Reji Reyna on 02-21-2022 Protein Ql (U) 30 mg/dl Negative [facility] Urine blood detectionOrdered By: Reji Reyna on 02-21-2022 RBC Ql (U) 250 /ul Negative [facility] Urine clarityOrdered By: Fredy Reyna on 02-21-2022 Clarity (U) Cloudy Clear [facility] Urine color determinationOrd ered By: Reji Reyna on 02-21-2022 Color (U) Starla Yellow [facility] Urine glucose detectionOrder ed By: Reji Reyna on 02-21-2022 Glucose Ql (U) Normal mg/dl Normal [facility] Urine leukocyte esterase det ection by dipstickOrdered By: Reji Reyna on 02-21-2022 Leukocyte esterase Test strip Ql (U) 25 /ul Negative [facility] Urine pHOrdered By: Deloris Reyna on 02-21-2022 pH (U) 6.0 [pH] 5.0 - 8.0 [facility] Urine specific gravity measu rementOrdered By: Reji Reyna on 02-21-2022 Specific gravity (U) [Rel density] 1.015 1.002-1.030 [facility] Urobilinogen Auto test strip Ql (U)Ordered By: Reji Reyna on 02-21-2022 Urobilinogen Ql (U) Normal mg/dl Normal [facility] Absolute lymphocyte countOrd ered By: Alejo Salcido on 02-04-2022 Lymphocytes Auto (Unsp spec) [#/Vol] 1.51 10*3/uL 0.83-4.51 [facility] Basophil percentageOrdered B y: Alejo Salcido on 02-04-2022 Basophils/100 WBC (Bld) 1.0 % 0-1 [facility] Bilirubin [Mass/Vol] 0.50 mg/dL 0.20-1.00 [facility] Comment on above: For patients on eltr ombopag therapy, use of Dimension [place] TBIL is not recommended. Chloride [Moles/Vol] 111 mmol/L 98-107 [facility] Eosinophils/100 WBC (Bld) 2.5 % 0-5 [facility] Glucose [Mass/Vol] 79 mg/dL 74-106 [facility] Neutrophils (Bld) [#/Vol] 2.9 10*3/uL 2.0-7.7 [facility] Neutrophils/100 WBC (Bld) 55.7 % 47-70 [facility] Potassium [Moles/Vol] 4.1 mmol/L 3.5-5.1 [facility] Protein [Mass/Vol] 7.2 g/dL 6.4-8.2 [facility] Sodium [Moles/Vol] 140 mmol/L 136-145 [facility] WBC (Bld) [#/Vol] 5.2 10*3/uL 4.4-11.0 [facility] Blood erythrocytes count (nu mber/volume)Ordered By: Alejo Salcido on 02-04-2022 RBC (Bld) [#/Vol] 3.06 10*6/uL 4.2-5.4 [facility] Blood hemoglobin measurement (mass/volume)Ordered By: Alejo Salcido on 02-04-2022 Hemoglobin (Bld) [Mass/Vol] 8.3 g/dL 12.0-15.0 [facility] Blood lymphocytes/100 leukoc ytesOrdered By: Alejo Salcido on 02-04-2022 Lymphocytes/100 WBC (Bld) 29.2 % 19-41 [facility] Blood monocytes/100 leukocyt esOrdered By: Alejo Salcido on 02-04-2022 Monocytes/100 WBC (Bld) 11.2 % 0-10 [facility] Blood platelet mean volumeOr dered By: Alejo Salcido on 02-04-2022 Platelet mean volume (Bld) [Entitic vol] 9.5 fL 6.2-12.0 [facility] Determination of erythrocyte mean corpuscular volume (MCV)Ordered By: Alejo Salcido on 02-04-2022 MCV (RBC) [Entitic vol] 87.3 fL 81-99 [facility] Hematocrit Auto (Bld) [Volum e fraction]Ordered By: Alejo Salcido on 02-04-2022 Hematocrit (Bld) [Volume fraction] 26.7 % 37-47 [facility] Laboratory - Chemistry and C hemistry - challengeOrdered By: Alejo Salcido on 02-04-2022 ALP [Catalytic activity/Vol] 87 U/L 45-117 [facility] ALT [Catalytic activity/Vol] 20 U/L 13-56 [facility] CO2 [Moles/Vol] 25.0 mmol/L 21.0-32.0 [facility] Globulin (S) [Mass/Vol] 4.5 g/dL 2.2-4.2 [facility] Urea nitrogen/Creatinine [Mass ratio] 20.9 mg/mg 10-20 [facility] Laboratory - Hematology and Cell countsOrdered By: Alejo Salcido on 02-04-2022 Erythrocyte distribution width (RBC) [Entitic vol] 54.0 fL 35.1-43.9 [facility] Erythrocyte distribution width (RBC) [Ratio] 17.1 % 11.6-14.6 [facility] Immature granulocytes/100 WBC (Bld) 0.400 % 0.0-0.9 [facility] Comment on above: IG% - Immature Granu locytes (promyelocytes, myelocytes and metamyelocytes) > 1% indicates that a LEFT SHIFT is Present. MCH (RBC) [Entitic mass] 27.1 pg 27.0-32.0 [facility] Nucleated RBC/100 WBC (Bld) [Ratio] 0 % 0-5 [facility] MCHC Auto (RBC) [Mass/Vol]Or dered By: Alejo Salcido on 02-04-2022 MCHC (RBC) [Mass/Vol] 31.1 g/dL 32-36 [facility] No Panel InformationOrdered By: Alejo Salcido on 02-04-2022 Estimated GFR (MDRD) Amer 107 mL/min >60 [facility] Comment on above: GFR Calc Estimated GFR (MDRD) Non-Af Amer 89 mL/min >60 [facility] Comment on above: Non- GFR Calc Platelets bldOrdered By: Levi Salcido on 02-04-2022 Platelets (Bld) [#/Vol] 155 10*3/uL 150-450 [facility] Serum or plasma albumin yonatan urement (mass/volume)Ordered By: Alejo Salcido on 02-04-2022 Albumin [Mass/Vol] 2.7 g/dL 3.2-5.0 [facility] Serum or plasma albumin/glob ulin mass ratioOrdered By: Alejo Salcido on 02-04-2022 Albumin/Globulin [Mass ratio] 0.6 {ratio} 0.9-2.4 [facility] Serum or plasma calcium yonatan urement (mass/volume)Ordered By: Alejo Salcido on 02-04-2022 Calcium [Mass/Vol] 8.9 mg/dL 8.5-10.1 [facility] Serum or plasma creatinine m easurement (mass/volume)Ordered By: Alejo Salcido on 02-04-2022 Creatinine [Mass/Vol] 0.67 mg/dL 0.55-1.02 [facility] Comment on above: The validity of the calculated GFR & GFRAA in patients over 70 years has not been determined. Clinical correlation is essential. Serum or plasma urea nitroge n measurement (mass/volume)Ordered By: Alejo Salcido on 02-04-2022 Urea nitrogen [Mass/Vol] 14 mg/dL 7-18 [facility] Thin prep Papanicolaou smear with manual screeningOrdered By: Alejo Salcido on 02-04-2022 Thin prep Papanicolaou smear with manual screening 20 U/L 15-37 [facility] Thin prep Papanicolaou smear with manual screening 4 5-15 [facility] Absolute lymphocyte countOrd ered By: Alejo Salcido on 01-17-2022 Lymphocytes Auto (Unsp spec) [#/Vol] 1.45 10*3/uL 0.83-4.51 [facility] Basophil percentageOrdered B y: Alejo Salcido on 01-17-2022 Basophils/100 WBC (Bld) 0.8 % 0-1 [facility] Eosinophils/100 WBC (Bld) 1.9 % 0-5 [facility] Neutrophils (Bld) [#/Vol] 3.0 10*3/uL 2.0-7.7 [facility] Neutrophils/100 WBC (Bld) 56.3 % 47-70 [facility] WBC (Bld) [#/Vol] 5.3 10*3/uL 4.4-11.0 [facility] Blood erythrocytes count (nu mber/volume)Ordered By: Alejo Salcido on 01-17-2022 RBC (Bld) [#/Vol] 2.79 10*6/uL 4.2-5.4 [facility] Blood hemoglobin measurement (mass/volume)Ordered By: Alejo Salcido on 01-17-2022 Hemoglobin (Bld) [Mass/Vol] 8.0 g/dL 12.0-15.0 [facility] Blood lymphocytes/100 leukoc ytesOrdered By: Alejo Salcido on 01-17-2022 Lymphocytes/100 WBC (Bld) 27.4 % 19-41 [facility] Blood monocytes/100 leukocyt esOrdered By: Alejo Salcido on 01-17-2022 Monocytes/100 WBC (Bld) 13.4 % 0-10 [facility] Blood platelet mean volumeOr dered By: Alejo Salcido on 01-17-2022 Platelet mean volume (Bld) [Entitic vol] 9.9 fL 6.2-12.0 [facility] Determination of erythrocyte mean corpuscular volume (MCV)Ordered By: Alejo Salcido on 01-17-2022 MCV (RBC) [Entitic vol] 88.9 fL 81-99 [facility] Hematocrit Auto (Bld) [Volum e fraction]Ordered By: Alejo Salcido on 01-17-2022 Hematocrit (Bld) [Volume fraction] 24.8 % 37-47 [facility] Laboratory - Hematology and Cell countsOrdered By: Alejo Salcido on 01-17-2022 Erythrocyte distribution width (RBC) [Entitic vol] 58.2 fL 35.1-43.9 [facility] Erythrocyte distribution width (RBC) [Ratio] 18.2 % 11.6-14.6 [facility] Immature granulocytes/100 WBC (Bld) 0.200 % 0.0-0.9 [facility] Comment on above: IG% - Immature Granu locytes (promyelocytes, myelocytes and metamyelocytes) > 1% indicates that a LEFT SHIFT is Present. MCH (RBC) [Entitic mass] 28.7 pg 27.0-32.0 [facility] Nucleated RBC/100 WBC (Bld) [Ratio] 0 % 0-5 [facility] MCHC Auto (RBC) [Mass/Vol]Or dered By: Alejo Salcido on 01-17-2022 MCHC (RBC) [Mass/Vol] 32.3 g/dL 32-36 [facility] Platelets bldOrdered By: Levi Salcido on 01-17-2022 Platelets (Bld) [#/Vol] 169 10*3/uL 150-450 [facility] Absolute lymphocyte countOrd ered By: Alejo Salcido on 01-03-2022 Lymphocytes Auto (Unsp spec) [#/Vol] 1.25 10*3/uL 0.83-4.51 [facility] Basophil percentageOrdered B y: Alejo Salcido on 01-03-2022 Basophils/100 WBC (Bld) 0.5 % 0-1 [facility] Eosinophils/100 WBC (Bld) 2.1 % 0-5 [facility] Neutrophils (Bld) [#/Vol] 2.5 10*3/uL 2.0-7.7 [facility] Neutrophils/100 WBC (Bld) 57.2 % 47-70 [facility] WBC (Bld) [#/Vol] 4.4 10*3/uL 4.4-11.0 [facility] Blood erythrocytes count (nu mber/volume)Ordered By: Alejo Salcido on 01-03-2022 RBC (Bld) [#/Vol] 2.97 10*6/uL 4.2-5.4 [facility] Blood hemoglobin measurement (mass/volume)Ordered By: Alejo Salcido on 01-03-2022 Hemoglobin (Bld) [Mass/Vol] 8.3 g/dL 12.0-15.0 [facility] Blood lymphocytes/100 leukoc ytesOrdered By: Alejo Salcido on 01-03-2022 Lymphocytes/100 WBC (Bld) 28.6 % 19-41 [facility] Blood monocytes/100 leukocyt esOrdered By: Alejo Salcido on 01-03-2022 Monocytes/100 WBC (Bld) 11.4 % 0-10 [facility] Blood platelet mean volumeOr dered By: Alejo Salcido on 01-03-2022 Platelet mean volume (Bld) [Entitic vol] 10.0 fL 6.2-12.0 [facility] Determination of erythrocyte mean corpuscular volume (MCV)Ordered By: Alejo Salcido on 01-03-2022 MCV (RBC) [Entitic vol] 86.5 fL 81-99 [facility] Hematocrit Auto (Bld) [Volum e fraction]Ordered By: Alejo Salcido on 01-03-2022 Hematocrit (Bld) [Volume fraction] 25.7 % 37-47 [facility] Laboratory - Hematology and Cell countsOrdered By: Alejo Salcido on 01-03-2022 Erythrocyte distribution width (RBC) [Entitic vol] 59.0 fL 35.1-43.9 [facility] Erythrocyte distribution width (RBC) [Ratio] 18.8 % 11.6-14.6 [facility] Immature granulocytes/100 WBC (Bld) 0.200 % 0.0-0.9 [facility] Comment on above: IG% - Immature Granu locytes (promyelocytes, myelocytes and metamyelocytes) > 1% indicates that a LEFT SHIFT is Present. MCH (RBC) [Entitic mass] 27.9 pg 27.0-32.0 [facility] Nucleated RBC/100 WBC (Bld) [Ratio] 0 % 0-5 [facility] MCHC Auto (RBC) [Mass/Vol]Or dered By: Alejo Salcido on 01-03-2022 MCHC (RBC) [Mass/Vol] 32.3 g/dL 32-36 [facility] Platelets bldOrdered By: Levi Salcido on 01-03-2022 Platelets (Bld) [#/Vol] 154 10*3/uL 150-450 [facility] CNOVon 01-02-2022 CNOV Office Visit (CRISTINE ) CHRISTIAN LANDRUM ([id number]) 1935 F Date Time Provider Department 01/02/22 [...] stool Pain: no Abnormal Vaginal Discharge: no [employer]ER HISTORY: Last Pap: Date:04/18/20 NIL; Last Mammogram: [...] sooner as needed Referring Provider: GALINA IRAHETA [[id number]] Allergies As of Date: 01/02/2022 Noted Allergy [...] Vaginal atrophy [N95.2] Order(s):UA DIP, URINE (POC) [2101794] Order #: [id number]. #:[id number] (more content not included)... Normal [facility] UA DIP, URINE (POC)on 2021 BILIRUBIN UA (POCT) Negative Negative [facility] CLARITY UA (POCT) Clear [facility] COLOR UA (POCT) Yellow [facility] GLUCOSE UA (POCT) Negative Negative mg/dL [facility] HEMOGLOBIN/BLOOD UA (POCT) Negative Negative [facility] KETONE UA (POCT) Negative Negative mg/dL [facility] LEUKOCYTES UA (POCT) Negative Negative [facility] NITRITE UA (POCT) Negative Negative [facility] PH UA (POCT) 6.5 4.5 - 8.[address] [facility] Protein Ql (U) Negative Negative mg/dL [facility] SPECIFIC GRAVITY UA (POCT) 1.010 1.005 - 1.[address] [facility] UROBILINOGEN UA (POCT) 0.2 E.U./dL Winifred l E.U./dL [facility] Absolute lymphocyte countOrd ered By: Alejo Salcido on 12-31-2021 Lymphocytes Auto (Unsp spec) [#/Vol] 1.26 10*3/uL 0.83-4.51 [facility] Basophil percentageOrdered B y: Alejo Salcido on 12-31-2021 Basophils/100 WBC (Bld) 0.3 % 0-1 [facility] Bilirubin [Mass/Vol] 0.50 mg/dL 0.20-1.00 [facility] Comment on above: For patients on eltr ombopag therapy, use of Dimension [place] TBIL is not recommended. Chloride [Moles/Vol] 113 mmol/L 98-107 [facility] Eosinophils/100 WBC (Bld) 1.6 % 0-5 [facility] Glucose [Mass/Vol] 93 mg/dL 74-106 [facility] Neutrophils (Bld) [#/Vol] 1.8 10*3/uL 2.0-7.7 [facility] Neutrophils/100 WBC (Bld) 49.5 % 47-70 [facility] Potassium [Moles/Vol] 4.3 mmol/L 3.5-5.1 [facility] Protein [Mass/Vol] 6.2 g/dL 6.4-8.2 [facility] Sodium [Moles/Vol] 144 mmol/L 136-145 [facility] WBC (Bld) [#/Vol] 3.6 10*3/uL 4.4-11.0 [facility] Blood erythrocytes count (nu mber/volume)Ordered By: Alejo Salcido on 12-31-2021 RBC (Bld) [#/Vol] 2.73 10*6/uL 4.2-5.4 [facility] Blood hemoglobin measurement (mass/volume)Ordered By: Alejo Salcido on 12-31-2021 Hemoglobin (Bld) [Mass/Vol] 7.5 g/dL 12.0-15.0 [facility] Blood lymphocytes/100 leukoc ytesOrdered By: Alejo Salcido on 12-31-2021 Lymphocytes/100 WBC (Bld) 34.6 % 19-41 [facility] Blood monocytes/100 leukocyt esOrdered By: Alejo Salcido on 12-31-2021 Monocytes/100 WBC (Bld) 13.7 % 0-10 [facility] Blood platelet mean volumeOr dered By: Alejo Salcido on 12-31-2021 Platelet mean volume (Bld) [Entitic vol] 10.4 fL 6.2-12.0 [facility] Determination of erythrocyte mean corpuscular volume (MCV)Ordered By: Alejo Salcido on 12-31-2021 MCV (RBC) [Entitic vol] 88.3 fL 81-99 [facility] Hematocrit Auto (Bld) [Volum e fraction]Ordered By: Alejo Salcido on 12-31-2021 Hematocrit (Bld) [Volume fraction] 24.1 % 37-47 [facility] Laboratory - Chemistry and C hemistry - challengeOrdered By: Alejo Salcido on 12-31-2021 ALP [Catalytic activity/Vol] 75 U/L 45-117 [facility] ALT [Catalytic activity/Vol] 25 U/L 13-56 [facility] CO2 [Moles/Vol] 22.0 mmol/L 21.0-32.0 [facility] Globulin (S) [Mass/Vol] 3.9 g/dL 2.2-4.2 [facility] Urea nitrogen/Creatinine [Mass ratio] 13.7 mg/mg 10-20 [facility] Laboratory - Hematology and Cell countsOrdered By: Alejo Salcido on 12-31-2021 Erythrocyte distribution width (RBC) [Entitic vol] 61.0 fL 35.1-43.9 [facility] Erythrocyte distribution width (RBC) [Ratio] 19.1 % 11.6-14.6 [facility] Immature granulocytes/100 WBC (Bld) 0.300 % 0.0-0.9 [facility] Comment on above: IG% - Immature Granu locytes (promyelocytes, myelocytes and metamyelocytes) > 1% indicates that a LEFT SHIFT is Present. MCH (RBC) [Entitic mass] 27.5 pg 27.0-32.0 [facility] Nucleated RBC/100 WBC (Bld) [Ratio] 0 % 0-5 [facility] MCHC Auto (RBC) [Mass/Vol]Or dered By: Alejo Salcido on 12-31-2021 MCHC (RBC) [Mass/Vol] 31.1 g/dL 32-36 [facility] No Panel InformationOrdered By: Alejo Salcido on 12-31-2021 Estimated GFR (MDRD) Amer 98 mL/min >60 [facility] Estimated GFR (MDRD) Non-Af Amer 81 mL/min >60 [facility] Platelets bldOrdered By: Levi Salcido on 12-31-2021 Platelets (Bld) [#/Vol] 125 10*3/uL 150-450 [facility] Serum or plasma albumin yonatan urement (mass/volume)Ordered By: Alejo Salcido on 12-31-2021 Albumin [Mass/Vol] 2.3 g/dL 3.2-5.0 [facility] Serum or plasma albumin/glob ulin mass ratioOrdered By: Alejo Salcido on 12-31-2021 Albumin/Globulin [Mass ratio] 0.6 {ratio} 0.9-2.4 [facility] Serum or plasma calcium yonatan urement (mass/volume)Ordered By: Alejo Salcido on 12-31-2021 Calcium [Mass/Vol] 8.4 mg/dL 8.5-10.1 [facility] Serum or plasma creatinine m easurement (mass/volume)Ordered By: Alejo Salcido on 12-31-2021 Creatinine [Mass/Vol] 0.73 mg/dL 0.55-1.02 [facility] Comment on above: The validity of the calculated GFR & GFRAA in patients over 70 years has not been determined. Clinical correlation is essential. Serum or plasma urea nitroge n measurement (mass/volume)Ordered By: Alejo Salcido on 12-31-2021 Urea nitrogen [Mass/Vol] 10 mg/dL 7-18 [facility] Thin prep Papanicolaou smear with manual screeningOrdered By: Alejo Salcido on 12-31-2021 Thin prep Papanicolaou smear with manual screening 35 U/L 15-37 [facility] Thin prep Papanicolaou smear with manual screening 9 -15 [facility] Absolute lymphocyte countOrd ered By: Selma Durham on 12-28-2021 Lymphocytes Auto (Unsp spec) [#/Vol] 0.99 10*3/uL 0.83-4.51 [facility] Basophil percentageOrdered B y: Selma Durham on 12-28-2021 Basophils/100 WBC (Bld) 0.3 % 0-1 [facility] Eosinophils/100 WBC (Bld) 1.0 % 0-5 [facility] Neutrophils (Bld) [#/Vol] 1.5 10*3/uL 2.0-7.7 [facility] Neutrophils/100 WBC (Bld) 51.6 % 47-70 [facility] WBC (Bld) [#/Vol] 2.9 10*3/uL 4.4-11.0 [facility] Blood erythrocytes count (nu mber/volume)Ordered By: Selma Durham on 12-28-2021 RBC (Bld) [#/Vol] 2.60 10*6/uL 4.2-5.4 [facility] Blood hemoglobin measurement (mass/volume)Ordered By: Selma Durham on 12-28-2021 Hemoglobin (Bld) [Mass/Vol] 7.1 g/dL 12.0-15.0 [facility] Blood lymphocytes/100 leukoc ytesOrdered By: Selma Durham on 12-28-2021 Lymphocytes/100 WBC (Bld) 33.8 % 19-41 [facility] Blood monocytes/100 leukocyt esOrdered By: Selma Durham on 12-28-2021 Monocytes/100 WBC (Bld) 13.0 % 0-10 [facility] Blood platelet mean volumeOr dered By: Selma Durham on 12-28-2021 Platelet mean volume (Bld) [Entitic vol] 10.2 fL 6.2-12.0 [facility] Determination of erythrocyte mean corpuscular volume (MCV)Ordered By: Selma Durham on 12-28-2021 MCV (RBC) [Entitic vol] 86.5 fL 81-99 [facility] Hematocrit Auto (Bld) [Volum e fraction]Ordered By: Selma Durham on 12-28-2021 Hematocrit (Bld) [Volume fraction] 22.5 % 37-47 [facility] INR in Blood by Coagulation assayOrdered By: Selma Durham on 12-28-2021 INR Coag (Bld) [Relative time] 2.6 {INR} [facility] Laboratory - CoagulationOrde red By: Selma Durhma on 12-28-2021 PT Coag (PPP) [Time] 27.1 s 11.7-14.9 [facility] Laboratory - Hematology and Cell countsOrdered By: Selma Durham on 12-28-2021 Erythrocyte distribution width (RBC) [Entitic vol] 63.3 fL 35.1-43.9 [facility] Erythrocyte distribution width (RBC) [Ratio] 19.9 % 11.6-14.6 [facility] Immature granulocytes/100 WBC (Bld) 0.300 % 0.0-0.9 [facility] Comment on above: IG% - Immature Granu locytes (promyelocytes, myelocytes and metamyelocytes) > 1% indicates that a LEFT SHIFT is Present. MCH (RBC) [Entitic mass] 27.3 pg 27.0-32.0 [facility] Nucleated RBC/100 WBC (Bld) [Ratio] 0 % 0-5 [facility] MCHC Auto (RBC) [Mass/Vol]Or dered By: Selma Durham on 12-28-2021 MCHC (RBC) [Mass/Vol] 31.6 g/dL 32-36 [facility] Platelets bldOrdered By: Hafsa Durham on 12-28-2021 Platelets (Bld) [#/Vol] 108 10*3/uL 150-450 [facility] Absolute lymphocyte countOrd ered By: Alejo Salcido on 12-27-2021 Lymphocytes Auto (Unsp spec) [#/Vol] 1.15 10*3/uL 0.83-4.51 [facility] Basophil percentageOrdered B y: Alejo Salcido on 12-27-2021 Basophils/100 WBC (Bld) 0.0 % 0-1 [facility] Eosinophils/100 WBC (Bld) 1.2 % 0-5 [facility] Neutrophils (Bld) [#/Vol] 0.8 10*3/uL 2.0-7.7 [facility] Neutrophils/100 WBC (Bld) 33.7 % 47-70 [facility] WBC (Bld) [#/Vol] 2.4 10*3/uL 4.4-11.0 [facility] Blood erythrocytes count (nu mber/volume)Ordered By: Alejo Salcido on 12-27-2021 RBC (Bld) [#/Vol] 2.55 10*6/uL 4.2-5.4 [facility] Blood hemoglobin measurement (mass/volume)Ordered By: Alejo Salcido on 12-27-2021 Hemoglobin (Bld) [Mass/Vol] 6.7 g/dL 12.0-15.0 [facility] Blood lymphocytes/100 leukoc ytesOrdered By: Alejo Salcido on 12-27-2021 Lymphocytes/100 WBC (Bld) 47.1 % 19-41 [facility] Blood manual differential co mment interpretation (narrative result)Ordered By: Alejo Salcido on 12-27-2021 Manual differential comment [place] (Bld) [Interp] See comment [facility] Comment on above: NEUTROPENIA Blood monocytes/100 leukocyt esOrdered By: Alejo Salcido on 12-27-2021 Monocytes/100 WBC (Bld) 18.0 % 0-10 [facility] Blood platelet adequacy dete ction by light microscopyOrdered By: Alejo Salcido on 12-27-2021 Platelets LM Ql (Bld) SLT DEC ADEQ [facility] Blood platelet mean volumeOr dered By: Alejo Salcido on 12-27-2021 Platelet mean volume (Bld) [Entitic vol] 10.5 fL 6.2-12.0 [facility] Determination of erythrocyte mean corpuscular volume (MCV)Ordered By: Alejo Salcido on 12-27-2021 MCV (RBC) [Entitic vol] 87.1 fL 81-99 [facility] Hematocrit Auto (Bld) [Volum e fraction]Ordered By: Alejo Salcido on 12-27-2021 Hematocrit (Bld) [Volume fraction] 22.2 % 37-47 [facility] Hypochromatic red blood cell detectionOrdered By: Alejo Salcido on 12-27-2021 Hypochromia Ql (Bld) 2+ [facility] INR in Blood by Coagulation assayOrdered By: Alejo Salcido on 12-27-2021 INR Coag (Bld) [Relative time] 3.0 {INR} [facility] Laboratory - CoagulationOrde red By: Alejo Salcido on 12-27-2021 PT Coag (PPP) [Time] 30.9 s 11.7-14.9 [facility] Laboratory - Hematology and Cell countsOrdered By: Alejo Salcido on 12-27-2021 Anisocytosis Ql (Bld) 1+ [facility] Erythrocyte distribution width (RBC) [Entitic vol] 63.0 fL 35.1-43.9 [facility] Erythrocyte distribution width (RBC) [Ratio] 19.7 % 11.6-14.6 [facility] Immature granulocytes/100 WBC (Bld) 0.000 % 0.0-0.9 [facility] Comment on above: IG% - Immature Granu locytes (promyelocytes, myelocytes and metamyelocytes) > 1% indicates that a LEFT SHIFT is Present. MCH (RBC) [Entitic mass] 26.3 pg 27.0-32.0 [facility] Nucleated RBC/100 WBC (Bld) [Ratio] 0 % 0-5 [facility] MCHC Auto (RBC) [Mass/Vol]Or dered By: Alejo Salcido on 12-27-2021 MCHC (RBC) [Mass/Vol] 30.2 g/dL 32-36 [facility] Platelets bldOrdered By: Levi Salcido on 12-27-2021 Platelets (Bld) [#/Vol] 104 10*3/uL 150-450 [facility] Absolute lymphocyte countOrd ered By: Alejo Salcido on 12-22-2021 Lymphocytes Auto (Unsp spec) [#/Vol] 0.98 10*3/uL 0.83-4.51 [facility] Basophil percentageOrdered B y: Alejo Salcido on 12-22-2021 Basophils/100 WBC (Bld) 0.3 % 0-1 [facility] Chloride [Moles/Vol] 110 mmol/L 98-107 [facility] Eosinophils/100 WBC (Bld) 0.3 % 0-5 [facility] Glucose [Mass/Vol] 111 mg/dL 74-106 [facility] Comment on above: Fasting Glucose resu lt from 100 to 125 mg/dL suggests IMPAIRED HOMEOSTASIS per A.D.A. criteria. Neutrophils (Bld) [#/Vol] 2.1 10*3/uL 2.0-7.7 [facility] Neutrophils/100 WBC (Bld) 54.4 % 47-70 [facility] Potassium [Moles/Vol] 3.8 mmol/L 3.5-5.1 [facility] Sodium [Moles/Vol] 140 mmol/L 136-145 [facility] WBC (Bld) [#/Vol] 3.9 10*3/uL 4.4-11.0 [facility] Blood erythrocytes count (nu mber/volume)Ordered By: Alejo Salcido on 12-22-2021 RBC (Bld) [#/Vol] 2.80 10*6/uL 4.2-5.4 [facility] Blood hemoglobin measurement (mass/volume)Ordered By: Alejo Salcido on 12-22-2021 Hemoglobin (Bld) [Mass/Vol] 7.5 g/dL 12.0-15.0 [facility] Blood lymphocytes/100 leukoc ytesOrdered By: Alejo Salcido on 12-22-2021 Lymphocytes/100 WBC (Bld) 25.3 % 19-41 [facility] Blood monocytes/100 leukocyt esOrdered By: Alejo Salcido on 12-22-2021 Monocytes/100 WBC (Bld) 19.4 % 0-10 [facility] Blood platelet mean volumeOr dered By: Alejo Salcido on 12-22-2021 Platelet mean volume (Bld) [Entitic vol] 10.4 fL 6.2-12.0 [facility] Determination of erythrocyte mean corpuscular volume (MCV)Ordered By: Alejo Salcido on 12-22-2021 MCV (RBC) [Entitic vol] 85.4 fL 81-99 [facility] Hematocrit Auto (Bld) [Volum e fraction]Ordered By: Alejo Salcido on 12-22-2021 Hematocrit (Bld) [Volume fraction] 23.9 % 37-47 [facility] Laboratory - Chemistry and C hemistry - challengeOrdered By: Alejo Salcido on 12-22-2021 CO2 [Moles/Vol] 24.0 mmol/L 21.0-32.0 [facility] Urea nitrogen/Creatinine [Mass ratio] 19.0 mg/mg 10-20 [facility] Laboratory - Hematology and Cell countsOrdered By: Alejo Salcido on 12-22-2021 Erythrocyte distribution width (RBC) [Entitic vol] 61.6 fL 35.1-43.9 [facility] Erythrocyte distribution width (RBC) [Ratio] 19.5 % 11.6-14.6 [facility] Immature granulocytes/100 WBC (Bld) 0.300 % 0.0-0.9 [facility] Comment on above: IG% - Immature Granu locytes (promyelocytes, myelocytes and metamyelocytes) > 1% indicates that a LEFT SHIFT is Present. MCH (RBC) [Entitic mass] 26.8 pg 27.0-32.0 [facility] Nucleated RBC/100 WBC (Bld) [Ratio] 0 % 0-5 [facility] MCHC Auto (RBC) [Mass/Vol]Or dered By: Alejo Salcido on 12-22-2021 MCHC (RBC) [Mass/Vol] 31.4 g/dL 32-36 [facility] No Panel InformationOrdered By: Alejo Salcido on 12-22-2021 Estimated GFR (MDRD) Amer 72 mL/min >60 [facility] Comment on above: GFR Calc Estimated GFR (MDRD) Non-Af Amer 60 mL/min >60 [facility] Comment on above: Non- GFR Calc Platelets bldOrdered By: Levi Salcido on 12-22-2021 Platelets (Bld) [#/Vol] 136 10*3/uL 150-450 [facility] Serum or plasma calcium yonatan urement (mass/volume)Ordered By: Alejo Salcido on 12-22-2021 Calcium [Mass/Vol] 8.2 mg/dL 8.5-10.1 [facility] Serum or plasma creatinine m easurement (mass/volume)Ordered By: Alejo Salcido on 12-22-2021 Creatinine [Mass/Vol] 0.95 mg/dL 0.55-1.02 [facility] Comment on above: The validity of the calculated GFR & GFRAA in patients over 70 years has not been determined. Clinical correlation is essential. Serum or plasma urea nitroge n measurement (mass/volume)Ordered By: Alejo Salcido on 12-22-2021 Urea nitrogen [Mass/Vol] 18 mg/dL 7-18 [facility] Thin prep Papanicolaou smear with manual screeningOrdered By: Alejo Salcido on 12-22-2021 Thin prep Papanicolaou smear with manual screening 6 5-15 [facility] Laboratory - CoagulationOrde red By: Alejo Salcido on 12-17-2021 INR Coag (Bld) [Relative time] 2.7 {INR} [facility] Comment on above: Critical Value > 4.0 Whole blood prothrombin time Ordered By: Alejo Salcido on 12-17-2021 PT Coag (Bld) [Time] 31.0 s 11.7-14.9 [facility] Laboratory - CoagulationOrde red By: Alejo Salcido on 12-10-2021 INR Coag (Bld) [Relative time] 2.4 {INR} [facility] Comment on above: Critical Value > 4.0 Whole blood prothrombin time Ordered By: Alejo Salcido on 12-10-2021 PT Coag (Bld) [Time] 28.1 s 11.7-14.9 [facility] Absolute lymphocyte countOrd ered By: Alejo Salcido on 12-03-2021 Lymphocytes Auto (Unsp spec) [#/Vol] 1.47 10*3/uL 0.83-4.51 [facility] Basophil percentageOrdered B y: Alejo Salcido on 12-03-2021 Basophils/100 WBC (Bld) 0.8 % 0-1 [facility] Bilirubin [Mass/Vol] 0.40 mg/dL 0.20-1.00 [facility] Comment on above: For patients on eltr ombopag therapy, use of Dimension [place] TBIL is not recommended. Chloride [Moles/Vol] 113 mmol/L 98-107 [facility] Eosinophils/100 WBC (Bld) 2.9 % 0-5 [facility] Glucose [Mass/Vol] 84 mg/dL 74-106 [facility] Neutrophils (Bld) [#/Vol] 2.5 10*3/uL 2.0-7.7 [facility] Neutrophils/100 WBC (Bld) 51.5 % 47-70 [facility] Potassium [Moles/Vol] 4.0 mmol/L 3.5-5.1 [facility] Protein [Mass/Vol] 7.4 g/dL 6.4-8.2 [facility] Sodium [Moles/Vol] 144 mmol/L 136-145 [facility] WBC (Bld) [#/Vol] 4.9 10*3/uL 4.4-11.0 [facility] Blood erythrocytes count (nu mber/volume)Ordered By: Alejo Salcido on 12-03-2021 RBC (Bld) [#/Vol] 3.31 10*6/uL 4.2-5.4 [facility] Blood hemoglobin measurement (mass/volume)Ordered By: Alejo Salcido on 12-03-2021 Hemoglobin (Bld) [Mass/Vol] 8.6 g/dL 12.0-15.0 [facility] Blood lymphocytes/100 leukoc ytesOrdered By: Alejo Salcido on 12-03-2021 Lymphocytes/100 WBC (Bld) 29.9 % 19-41 [facility] Blood monocytes/100 leukocyt esOrdered By: Alejo Salcido on 12-03-2021 Monocytes/100 WBC (Bld) 14.7 % 0-10 [facility] Blood platelet mean volumeOr dered By: Alejo Salcido on 12-03-2021 Platelet mean volume (Bld) [Entitic vol] 10.1 fL 6.2-12.0 [facility] Determination of erythrocyte mean corpuscular volume (MCV)Ordered By: Alejo Salcido on 12-03-2021 MCV (RBC) [Entitic vol] 87.9 fL 81-99 [facility] Hematocrit Auto (Bld) [Volum e fraction]Ordered By: Alejo Salcido on 12-03-2021 Hematocrit (Bld) [Volume fraction] 29.1 % 37-47 [facility] INR in Blood by Coagulation assayOrdered By: Alejo Salcido on 12-03-2021 INR Coag (Bld) [Relative time] 2.4 {INR} [facility] Laboratory - Chemistry and C hemistry - challengeOrdered By: Alejo Salcido on 12-03-2021 ALP [Catalytic activity/Vol] 85 U/L 45-117 [facility] ALT [Catalytic activity/Vol] 22 U/L 13-56 [facility] CO2 [Moles/Vol] 25.0 mmol/L 21.0-32.0 [facility] Globulin (S) [Mass/Vol] 4.8 g/dL 2.2-4.2 [facility] Urea nitrogen/Creatinine [Mass ratio] 20.7 mg/mg 10-20 [facility] Laboratory - CoagulationOrde red By: Alejo Salcido on 12-03-2021 PT Coag (PPP) [Time] 25.8 s 11.7-14.9 [facility] Laboratory - Hematology and Cell countsOrdered By: Alejo Salcido on 12-03-2021 Erythrocyte distribution width (RBC) [Entitic vol] 62.5 fL 35.1-43.9 [facility] Erythrocyte distribution width (RBC) [Ratio] 19.6 % 11.6-14.6 [facility] Immature granulocytes/100 WBC (Bld) 0.200 % 0.0-0.9 [facility] Comment on above: IG% - Immature Granu locytes (promyelocytes, myelocytes and metamyelocytes) > 1% indicates that a LEFT SHIFT is Present. MCH (RBC) [Entitic mass] 26.0 pg 27.0-32.0 [facility] Nucleated RBC/100 WBC (Bld) [Ratio] 0 % 0-5 [facility] MCHC Auto (RBC) [Mass/Vol]Or dered By: Alejo Salcido on 12-03-2021 MCHC (RBC) [Mass/Vol] 29.6 g/dL 32-36 [facility] No Panel InformationOrdered By: Alejo Salcido on 12-03-2021 Estimated GFR (MDRD) Amer 106 mL/min >60 [facility] Comment on above: GFR Calc Estimated GFR (MDRD) Non-Af Amer 88 mL/min >60 [facility] Comment on above: Non- GFR Calc Platelets bldOrdered By: Levi Salcido on 12-03-2021 Platelets (Bld) [#/Vol] 173 10*3/uL 150-450 [facility] Serum or plasma albumin yonatan urement (mass/volume)Ordered By: Alejo Salcido on 12-03-2021 Albumin [Mass/Vol] 2.6 g/dL 3.2-5.0 [facility] Serum or plasma albumin/glob ulin mass ratioOrdered By: Alejo Salcido on 12-03-2021 Albumin/Globulin [Mass ratio] 0.5 {ratio} 0.9-2.4 [facility] Serum or plasma calcium yonatan urement (mass/volume)Ordered By: Alejo Salcido on 12-03-2021 Calcium [Mass/Vol] 9.3 mg/dL 8.5-10.1 [facility] Serum or plasma creatinine m easurement (mass/volume)Ordered By: Alejo Salcido on 12-03-2021 Creatinine [Mass/Vol] 0.68 mg/dL 0.55-1.02 [facility] Comment on above: The validity of the calculated GFR & GFRAA in patients over 70 years has not been determined. Clinical correlation is essential. Serum or plasma urea nitroge n measurement (mass/volume)Ordered By: Alejo Salcido on 12-03-2021 Urea nitrogen [Mass/Vol] 14 mg/dL 7-18 [facility] Thin prep Papanicolaou smear with manual screeningOrdered By: Alejo Salcido on 12-03-2021 Thin prep Papanicolaou smear with manual screening 24 U/L 15-37 [facility] Thin prep Papanicolaou smear with manual screening 6 5-15 [facility] Laboratory - Coagulationon 0 11-26-2021 INR Coag (Bld) [Relative time] 1.1 {INR} [facility] Work Phone: [phone] Comment on above: Critical Value > 4.0 Whole blood prothrombin time on 11-26-2021 PT Coag (Bld) [Time] 13.7 s 11.7-14.9 [facility] Work Phone: Absolute lymphocyte counton 11-20-2021 Lymphocytes Auto (Unsp spec) [#/Vol] 1.35 10*3/uL 0.83-4.51 [facility] Work Phone: Basophil percentageon 2021 Basophils/100 WBC (Bld) 0.8 % 0-1 [facility] Work Phone: Eosinophils/100 WBC (Bld) 1.7 % 0-5 [facility] Work Phone: Neutrophils (Bld) [#/Vol] 3.1 10*3/uL 2.0-7.7 [facility] Work Phone: Neutrophils/100 WBC (Bld) 59.8 % 47-70 [facility] Work Phone: WBC (Bld) [#/Vol] 5.2 10*3/uL 4.4-11.0 [facility] Work Phone: Blood erythrocytes count (nu mber/volume)on 11-20-2021 RBC (Bld) [#/Vol] 3.20 10*6/uL 4.2-5.4 [facility] Work Phone: Blood hemoglobin measurement (mass/volume)on 11-20-2021 Hemoglobin (Bld) [Mass/Vol] 8.5 g/dL 12.0-15.0 [facility] Work Phone: Blood lymphocytes/100 leukoc yteson 11-20-2021 Lymphocytes/100 WBC (Bld) 26.0 % 19-41 [facility] Work Phone: Blood monocytes/100 leukocyt eson 11-20-2021 Monocytes/100 WBC (Bld) 11.5 % 0-10 [facility] Work Phone: Blood platelet mean volumeon 11-20-2021 Platelet mean volume (Bld) [Entitic vol] 9.8 fL 6.2-12.0 [facility] Work Phone: Determination of erythrocyte mean corpuscular volume (MCV)on 11-20-2021 MCV (RBC) [Entitic vol] 88.1 fL 81-99 [facility] Work Phone: [phone] Hematocrit Auto (Bld) [Volum e fraction]on 11-20-2021 Hematocrit (Bld) [Volume fraction] 28.2 % 37-47 [facility] Work Phone: [phone] Laboratory - Hematology and Cell countson 11-20-2021 Erythrocyte distribution width (RBC) [Entitic vol] 63.0 fL 35.1-43.9 [facility] Work Phone: [phone] Erythrocyte distribution width (RBC) [Ratio] 19.5 % 11.6-14.6 [facility] Work Phone: [phone] Immature granulocytes/100 WBC (Bld) 0.200 % 0.0-0.9 [facility] Work Phone: [phone] Comment on above: IG% - Immature Granu locytes (promyelocytes, myelocytes and metamyelocytes) > 1% indicates that a LEFT SHIFT is Present. MCH (RBC) [Entitic mass] 26.6 pg 27.0-32.0 [facility] Work Phone: [phone] Nucleated RBC/100 WBC (Bld) [Ratio] 0 % 0-5 [facility] Work Phone: [phone] MCHC Auto (RBC) [Mass/Vol]on 11-20-2021 MCHC (RBC) [Mass/Vol] 30.1 g/dL 32-36 [facility] Work Phone: Platelets bldon 11-20-2021 Platelets (Bld) [#/Vol] 184 10*3/uL 150-450 [facility] Work Phone: Absolute lymphocyte counton 10-29-2021 Lymphocytes Auto (Unsp spec) [#/Vol] 1.41 10*3/uL 0.83-4.51 [facility] Work Phone: Basophil percentageon 2021 Basophils/100 WBC (Bld) 0.6 % 0-1 [facility] Work Phone: Bilirubin [Mass/Vol] 0.50 mg/dL 0.20-1.00 [facility] Work Phone: Comment on above: For patients on eltr ombopag therapy, use of Dimension [place] TBIL is not recommended. Chloride [Moles/Vol] 112 mmol/L 98-107 [facility] Work Phone: Eosinophils/100 WBC (Bld) 2.5 % 0-5 [facility] Work Phone: Glucose [Mass/Vol] 82 mg/dL 74-106 [facility] Work Phone: Neutrophils (Bld) [#/Vol] 2.5 10*3/uL 2.0-7.7 [facility] Work Phone: Neutrophils/100 WBC (Bld) 52.7 % 47-70 [facility] Work Phone: Potassium [Moles/Vol] 3.9 mmol/L 3.5-5.1 [facility] Work Phone: Protein [Mass/Vol] 7.0 g/dL 6.4-8.2 [facility] Work Phone: Sodium [Moles/Vol] 144 mmol/L 136-145 [facility] Work Phone: WBC (Bld) [#/Vol] 4.8 10*3/uL 4.4-11.0 [facility] Work Phone: Blood erythrocytes count (nu mber/volume)on 10-29-2021 RBC (Bld) [#/Vol] 3.13 10*6/uL 4.2-5.4 [facility] Work Phone: Blood hemoglobin measurement (mass/volume)on 10-29-2021 Hemoglobin (Bld) [Mass/Vol] 8.5 g/dL 12.0-15.0 [facility] Work Phone: Blood lymphocytes/100 leukoc yteson 10-29-2021 Lymphocytes/100 WBC (Bld) 29.7 % 19-41 [facility] Work Phone: Blood monocytes/100 leukocyt eson 10-29-2021 Monocytes/100 WBC (Bld) 14.5 % 0-10 [facility] Work Phone: Blood platelet mean volumeon 10-29-2021 Platelet mean volume (Bld) [Entitic vol] 10.4 fL 6.2-12.0 [facility] Work Phone: Determination of erythrocyte mean corpuscular volume (MCV)on 10-29-2021 MCV (RBC) [Entitic vol] 86.6 fL 81-99 [facility] Work Phone: Hematocrit Auto (Bld) [Volum e fraction]on 10-29-2021 Hematocrit (Bld) [Volume fraction] 27.1 % 37-47 [facility] Work Phone: Laboratory - Chemistry and C hemistry - challengeon 10-29-2021 ALP [Catalytic activity/Vol] 77 U/L 45-117 [facility] Work Phone: ALT [Catalytic activity/Vol] 23 U/L 13-56 [facility] Work Phone: CO2 [Moles/Vol] 24.0 mmol/L 21.0-32.0 [facility] Work Phone: Globulin (S) [Mass/Vol] 4.4 g/dL 2.2-4.2 [facility] Work Phone: Urea nitrogen/Creatinine [Mass ratio] 23.5 mg/mg 10-20 [facility] Work Phone: Laboratory - Hematology and Cell countson 10-29-2021 Erythrocyte distribution width (RBC) [Entitic vol] 55.9 fL 35.1-43.9 [facility] Work Phone: Erythrocyte distribution width (RBC) [Ratio] 18.0 % 11.6-14.6 [facility] Work Phone: Immature granulocytes/100 WBC (Bld) 0.000 % 0.0-0.9 [facility] Work Phone: Comment on above: IG% - Immature Granu locytes (promyelocytes, myelocytes and metamyelocytes) > 1% indicates that a LEFT SHIFT is Present. MCH (RBC) [Entitic mass] 27.2 pg 27.0-32.0 [facility] Work Phone: Nucleated RBC/100 WBC (Bld) [Ratio] 0 % 0-5 [facility] Work Phone: MCHC Auto (RBC) [Mass/Vol]on 10-29-2021 MCHC (RBC) [Mass/Vol] 31.4 g/dL 32-36 [facility] Work Phone: No Panel Informationon 10-29 Estimated GFR (MDRD) Amer 92 mL/min >60 [facility] Work Phone: Comment on above: GFR Calc Estimated GFR (MDRD) Non-Af Amer 76 mL/min >60 [facility] Work Phone: Comment on above: Non- GFR Calc Thyroid Stimulating Hormone (TSH) 1.37 uIU/mL 0.358-3.74 [facility] Work Phone: Platelets bldon 10-29-2021 Platelets (Bld) [#/Vol] 164 10*3/uL 150-450 [facility] Work Phone: Serum or plasma albumin yonatan urement (mass/volume)on 10-29-2021 Albumin [Mass/Vol] 2.6 g/dL 3.2-5.0 [facility] Work Phone: [phone] Serum or plasma albumin/glob ulin mass ratioon 10-29-2021 Albumin/Globulin [Mass ratio] 0.6 {ratio} 0.9-2.4 [facility] Work Phone: [phone] Serum or plasma calcium yonatan urement (mass/volume)on 10-29-2021 Calcium [Mass/Vol] 9.2 mg/dL 8.5-10.1 [facility] Work Phone: [phone] Serum or plasma creatinine m easurement (mass/volume)on 10-29-2021 Creatinine [Mass/Vol] 0.77 mg/dL 0.55-1.02 [facility] Work Phone: [phone] Comment on above: The validity of the calculated GFR & GFRAA in patients over 70 years has not been determined. Clinical correlation is essential. Serum or plasma urea nitroge n measurement (mass/volume)on 10-29-2021 Urea nitrogen [Mass/Vol] 18 mg/dL 7-18 [facility] Work Phone: Thin prep Papanicolaou smear with manual screeningon 10-29-2021 Thin prep Papanicolaou smear with manual screening 27 U/L 15-37 [facility] Work Phone: Thin prep Papanicolaou smear with manual screening 8 5-15 [facility] Work Phone: [phone] Absolute lymphocyte counton 10-18-2021 Lymphocytes Auto (Unsp spec) [#/Vol] 1.43 10*3/uL 0.83-4.51 [facility] Work Phone: Basophil percentageon 2021 Basophil percentage 0 SEEN /hpf 0-5 [facility] Work Phone: Basophils/100 WBC (Bld) 0.4 % 0-1 [facility] Work Phone: Chloride [Moles/Vol] 111 mmol/L 98-107 [facility] Work Phone: Eosinophils/100 WBC (Bld) 1.4 % 0-5 [facility] Work Phone: Glucose [Mass/Vol] 113 mg/dL 74-106 [facility] Work Phone: Comment on above: Fasting Glucose resu lt from 100 to 125 mg/dL suggests IMPAIRED HOMEOSTASIS per A.D.A. criteria. Neutrophils (Bld) [#/Vol] 3.2 10*3/uL 2.0-7.7 [facility] Work Phone: Neutrophils/100 WBC (Bld) 57.4 % 47-70 [facility] Work Phone: Potassium [Moles/Vol] 3.9 mmol/L 3.5-5.1 [facility] Work Phone: Sodium [Moles/Vol] 140 mmol/L 136-145 [facility] Work Phone: WBC (Bld) [#/Vol] 5.5 10*3/uL 4.4-11.0 [facility] Work Phone: [phone] Bilirubin Test strip Ql (U)o n 10-18-2021 Bilirubin Ql (U) Negative Negative [facility] Work Phone: Blood erythrocytes count (nu mber/volume)on 10-18-2021 RBC (Bld) [#/Vol] 2.39 10*6/uL 4.2-5.4 [facility] Work Phone: Blood hemoglobin measurement (mass/volume)on 10-18-2021 Hemoglobin (Bld) [Mass/Vol] 6.2 g/dL 12.0-15.0 [facility] Work Phone: Blood lymphocytes/100 leukoc yteson 10-18-2021 Lymphocytes/100 WBC (Bld) 25.9 % 19-41 [facility] Work Phone: Blood monocytes/100 leukocyt eson 10-18-2021 Monocytes/100 WBC (Bld) 14.5 % 0-10 [facility] Work Phone: Blood platelet mean volumeon 10-18-2021 Platelet mean volume (Bld) [Entitic vol] 8.9 fL 6.2-12.0 [facility] Work Phone: [phone] Determination of erythrocyte mean corpuscular volume (MCV)on 10-18-2021 MCV (RBC) [Entitic vol] 84.5 fL 81-99 [facility] [facility] Work Phone: Hematocrit Auto (Bld) [Volum e fraction]on 10-18-2021 Hematocrit (Bld) [Volume fraction] 20.2 % 37-47 [facility] Work Phone: INR in Blood by Coagulation assayon 10-18-2021 INR Coag (Bld) [Relative time] 1.7 {INR} [facility] Work Phone: Iron measurement (mass/mass) on 10-18-2021 Iron (Unsp spec) [Mass/Mass] 25 ug/dL 50-170 [facility] Work Phone: Ketones Test strip Ql (U)on 10-18-2021 Ketones Ql (U) Negative Negative [facility] Work Phone: [phone] Laboratory - Chemistry and C hemistry - challengeon 10-18-2021 CO2 [Moles/Vol] 25.0 mmol/L 21.0-32.0 [facility] Work Phone: [phone] Urea nitrogen/Creatinine [Mass ratio] 23.5 mg/mg 10-20 [facility] Work Phone: Laboratory - Coagulationon 0 10-18-2021 PT Coag (PPP) [Time] 19.9 s 11.7-14.9 [facility] Work Phone: Laboratory - Hematology and Cell countson 10-18-2021 Erythrocyte distribution width (RBC) [Entitic vol] 53.0 fL 35.1-43.9 [facility] Work Phone: Erythrocyte distribution width (RBC) [Ratio] 17.2 % 11.6-14.6 [facility] Work Phone: Immature granulocytes/100 WBC (Bld) 0.400 % 0.0-0.9 [facility] Work Phone: Comment on above: IG% - Immature Granu locytes (promyelocytes, myelocytes and metamyelocytes) > 1% indicates that a LEFT SHIFT is Present. MCH (RBC) [Entitic mass] 25.9 pg 27.0-32.0 [facility] Work Phone: Nucleated RBC/100 WBC (Bld) [Ratio] 0 % 0-5 [facility] Work Phone: MCHC Auto (RBC) [Mass/Vol]on 10-18-2021 MCHC (RBC) [Mass/Vol] 30.7 g/dL 32-36 [facility] Work Phone: Mucus LM Ql (Urine sed)on Mucus Ql (Urine sed) 0 SEEN /hpf [facility] Work Phone: Nitrite Test strip Ql (U)on 10-18-2021 Nitrite Ql (U) Negative Negative [facility] Work Phone: No Panel Informationon 10-18 Estimated Creatinine Clearance Calc 38.50 ml/min [facility] Work Phone: Estimated GFR (MDRD) Amer 99 mL/min >60 [facility] Work Phone: Comment on above: GFR Calc Estimated GFR (MDRD) Non-Af Amer 82 mL/min >60 [facility] Work Phone: Comment on above: Non- GFR Calc Total Iron Binding Capacity 371 ug/dL 250-450 [facility] Work Phone: Platelets bldon 10-18-2021 Platelets (Bld) [#/Vol] 140 10*3/uL 150-450 [facility] Work Phone: Protein Test strip Ql (U)on 10-18-2021 Protein Ql (U) Negative Negative [facility] Work Phone: Serum or plasma calcium yonatan urement (mass/volume)on 10-18-2021 Calcium [Mass/Vol] 8.1 mg/dL 8.5-10.1 [facility] Work Phone: Serum or plasma creatinine m easurement (mass/volume)on 10-18-2021 Creatinine [Mass/Vol] 0.72 mg/dL 0.55-1.02 [facility] Work Phone: Comment on above: The validity of the calculated GFR & GFRAA in patients over 70 years has not been determined. Clinical correlation is essential. Serum or plasma ferritin shania surement (mass/volume)on 10-18-2021 Ferritin [Mass/Vol] 10 ng/mL 8-252 [facility] Work Phone: Serum or plasma iron saturat ion measurement (mass fraction)on 10-18-2021 Iron saturation [Mass fraction] 6.7 % 15.0-55.0 [facility] Work Phone: Serum or plasma urea nitroge n measurement (mass/volume)on 10-18-2021 Urea nitrogen [Mass/Vol] 17 mg/dL 7-18 [facility] Work Phone: Squamous epithelial cells de tection in urine sediment by light microscopyon 10-18-2021 Epithelial cells.squamous LM Ql (Urine sed) 0 SEEN /hpf 5-10 [facility] Work Phone: Thin prep Papanicolaou smear with manual screeningon 10-18-2021 Thin prep Papanicolaou smear with manual screening 4 5-15 [facility] Work Phone: Urine blood detectionon 08-0 RBC Ql (U) Negative Negative [facility] Work Phone: RBC Ql (U) 0 SEEN /hpf 0-5 [facility] Work Phone: Urine clarityon 10-18-2021 Clarity (U) Clear Clear [facility] Work Phone: Urine color determinationon 10-18-2021 Color (U) Yellow Yellow [facility] Work Phone: Urine glucose detectionon Glucose Ql (U) Normal mg/dl Normal [facility] Work Phone: Urine leukocyte esterase det ection by dipstickon 10-18-2021 Leukocyte esterase Test strip Ql (U) 100 /ul Negative [facility] Work Phone: Urine pHon 10-18-2021 pH (U) 6.5 [pH] 5.0 - 8.0 [facility] Work Phone: Urine sediment bacteria coun t by microscopy (number/high power field)on 10-18-2021 Bacteria LM.HPF (Urine sed) [#/Area] 0 /[HPF] None Seen [facility] Work Phone: Urine specific gravity measu rementon 10-18-2021 Specific gravity (U) [Rel density] 1.005 1.002-1.030 [facility] Work Phone: Urobilinogen Auto test strip Ql (U)on 10-18-2021 Urobilinogen Ql (U) Normal mg/dl Normal [facility] Work Phone: CBC W Auto Differential pane l (Bld)on 10-16-2021 Abs Immature Gran <0.03 <0.10 k/uL [facility] Basophils (Bld) [#/Vol] 0.04 10*3/uL <0.11 k/uL [facility] Basophils/100 WBC (Bld) 0.8 % [facility] Differential cell count method Nom (Bld) Auto [facility] Eosinophils (Bld) [#/Vol] 0.07 10*3/uL <0.46 k/uL [facility] Eosinophils/100 WBC (Bld) 1.3 % [facility] Erythrocyte distribution width (RBC) [Ratio] 17.0 % High 11.5 - 15.0 % [facility] Hematocrit (Bld) [Volume fraction] 21.0 % Low 36.0 - 46.0 % [facility] Hemoglobin (Bld) [Mass/Vol] 6.5 g/dL Low 11.5 - 15.5 g/dL [facility] Immature Gran % 0.4 % [facility] Lymphocytes (Bld) [#/Vol] 1.10 10*3/uL 1.00 - 4.00 k/uL [facility] Lymphocytes/100 WBC (Bld) 21.2 % [facility] MCH (RBC) [Entitic mass] 25.6 pg Low 26.0 - 34.[address] [facility] MCHC (RBC) [Mass/Vol] 31.0 g/dL 30.5 - 36.0 g/dL [facility] MCV (RBC) [Entitic vol] 82.7 fL 80.0 - 100.[address] [facility] Monocytes (Bld) [#/Vol] 0.61 10*3/uL <0.87 k/uL [facility] Monocytes/100 WBC (Bld) 11.7 % [facility] Neutrophils (Bld) [#/Vol] 3.36 10*3/uL 1.45 - 7.50 k/uL [facility] Neutrophils/100 WBC (Bld) 64.6 % [facility] Nucleated RBC (Bld) [#/Vol] 10*3/uL <0.01 k/uL [facility] Nucleated RBC/100 WBC (Bld) [Ratio] 0.0 /[address] [facility] Platelet mean volume (Bld) [Entitic vol] 9.1 fL 9.0 - 12.[address] [facility] Platelets (Bld) [#/Vol] 164 10*3/uL 150 - 400 k/uL [facility] RBC (Bld) [#/Vol] 2.54 10*6/uL Low 3.90 - 5.2 0 m/uL [facility] WBC (Bld) [#/Vol] 5.20 10*3/uL 3.70 - 11.00 k/uL [facility] INR FINGERSTICK B/Oon 2021 INR Coag (Bld) [Relative time] 2.1 (biotel) [facility] Quality Check No [facility] INR FINGERSTICK B/Oon 2021 INR Coag (Bld) [Relative time] 4.8 {INR} [facility] CNOVon 09-26-2021 CNOV Office Visit (CRISTINE ) CHRISTIAN LANDRUM ([id number]) 1935 F Date Time Provider Department 09/26/21 [...] >=60 mL/min/1.73m? 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 Normal [facility] UA DIP, URINE (POC)on 2021 BILIRUBIN UA (POCT) Negative Negative [facility] CLARITY UA (POCT) Clear [facility] COLOR UA (POCT) Yellow [facility] GLUCOSE UA (POCT) Negative Negative mg/dL [facility] HEMOGLOBIN/BLOOD UA (POCT) Negative Negative [facility] KETONE UA (POCT) Negative Negative mg/dL [facility] LEUKOCYTES UA (POCT) Negative Negative [facility] NITRITE UA (POCT) Negative Negative [facility] PH UA (POCT) 6.5 4.5 - 8.[address] [facility] Protein Ql (U) Negative Negative mg/dL [facility] SPECIFIC GRAVITY UA (POCT) 1.010 1.005 - 1.[address] [facility] UROBILINOGEN UA (POCT) 0.2 E.U./dL Winifred l E.U./dL [facility] UA DIP, URINE (POC)on 2021 BILIRUBIN UA (POCT) Negative Negative [facility]POCT[facility] COLOR UA (POCT) Yellow [facility] GLUCOSE UA (POCT) Negative Negative mg/dL [facility] HEMOGLOBIN/BLOOD UA (POCT) Trace-intact Abnormal Negative [facility] KETONE UA (POCT) Negative Negative mg/dL [facility] LEUKOCYTES UA (POCT) Large Abnormal Negative [facility] NITRITE UA (POCT) Negative Negative [facility] PH UA (POCT) 6.0 4.5 - 8.[address] [facility] Protein Ql (U) Negative Negative mg/dL [facility] SPECIFIC GRAVITY UA (POCT) 1.015 1.005 - 1.[address] [facility] UROBILINOGEN UA (POCT) 0.2 E.U./dL Winifred l E.U./dL [facility] Absolute lymphocyte counton 08-26-2021 Lymphocytes Auto (Unsp spec) [#/Vol] 1.15 10*3/uL 0.83-4.51 [facility] Work Phone: Basophil percentageon 2021 Basophils/100 WBC (Bld) 0.4 % 0-1 [facility] Work Phone: Chloride [Moles/Vol] 109 mmol/L 98-107 [facility] Work Phone: Eosinophils/100 WBC (Bld) 1.9 % 0-5 [facility] Work Phone: Glucose [Mass/Vol] 111 mg/dL 74-106 [facility] Work Phone: Comment on above: Fasting Glucose resu lt from 100 to 125 mg/dL suggests IMPAIRED HOMEOSTASIS per A.D.A. criteria. Neutrophils (Bld) [#/Vol] 3.3 10*3/uL 2.0-7.7 [facility] Work Phone: Neutrophils/100 WBC (Bld) 61.2 % 47-70 [facility] Work Phone: Potassium [Moles/Vol] 4.1 mmol/L 3.5-5.1 [facility] Work Phone: Sodium [Moles/Vol] 140 mmol/L 136-145 [facility] Work Phone: WBC (Bld) [#/Vol] 5.3 10*3/uL 4.4-11.0 [facility] Work Phone: Blood erythrocytes count (nu mber/volume)on 08-26-2021 RBC (Bld) [#/Vol] 2.86 10*6/uL 4.2-5.4 [facility] Work Phone: [phone] Blood hemoglobin measurement (mass/volume)on 08-26-2021 Hemoglobin (Bld) [Mass/Vol] 8.0 g/dL 12.0-15.0 [facility] Work Phone: Blood lymphocytes/100 leukoc yteson 08-26-2021 Lymphocytes/100 WBC (Bld) 21.5 % 19-41 [facility] Work Phone: Blood monocytes/100 leukocyt eson 08-26-2021 Monocytes/100 WBC (Bld) 14.6 % 0-10 [facility] Work Phone: Blood platelet mean volumeon 08-26-2021 Platelet mean volume (Bld) [Entitic vol] 9.3 fL 6.2-12.0 [facility] Work Phone: Determination of erythrocyte mean corpuscular volume (MCV)on 08-26-2021 MCV (RBC) [Entitic vol] 90.2 fL 81-99 [facility] Work Phone: Hematocrit Auto (Bld) [Volum e fraction]on 08-26-2021 Hematocrit (Bld) [Volume fraction] 25.8 % 37-47 [facility] Work Phone: [phone] INR in Blood by Coagulation assayon 08-26-2021 INR Coag (Bld) [Relative time] 2.9 {INR} [facility] Work Phone: [phone] Laboratory - Chemistry and C hemistry - challengeon 08-26-2021 CO2 [Moles/Vol] 28.0 mmol/L 21.0-32.0 [facility] Work Phone: [phone] Urea nitrogen/Creatinine [Mass ratio] 15.6 mg/mg 10-20 [facility] Work Phone: [phone] Laboratory - Coagulationon 0 08-26-2021 PT Coag (PPP) [Time] 29.6 s 11.7-14.9 [facility] Work Phone: Laboratory - Hematology and Cell countson 08-26-2021 Erythrocyte distribution width (RBC) [Entitic vol] 56.8 fL 35.1-43.9 [facility] Work Phone: Erythrocyte distribution width (RBC) [Ratio] 17.1 % 11.6-14.6 [facility] Work Phone: Immature granulocytes/100 WBC (Bld) 0.400 % 0.0-0.9 [facility] Work Phone: Comment on above: IG% - Immature Granu locytes (promyelocytes, myelocytes and metamyelocytes) > 1% indicates that a LEFT SHIFT is Present. MCH (RBC) [Entitic mass] 28.0 pg 27.0-32.0 [facility] Work Phone: Nucleated RBC/100 WBC (Bld) [Ratio] 0 % 0-5 [facility] Work Phone: MCHC Auto (RBC) [Mass/Vol]on 08-26-2021 MCHC (RBC) [Mass/Vol] 31.0 g/dL 32-36 [facility] Work Phone: No Panel Informationon 08-26 Estimated Creatinine Clearance Calc 38.50 ml/min [facility] Work Phone: Estimated GFR (MDRD) Amer 92 mL/min >60 [facility] Work Phone: Comment on above: GFR Calc Estimated GFR (MDRD) Non-Af Amer 76 mL/min >60 [facility] Work Phone: Comment on above: Non- GFR Calc Platelets bldon 08-26-2021 Platelets (Bld) [#/Vol] 155 10*3/uL 150-450 [facility] Work Phone: Serum or plasma calcium yonatan urement (mass/volume)on 08-26-2021 Calcium [Mass/Vol] 8.7 mg/dL 8.5-10.1 [facility] Work Phone: Serum or plasma creatinine m easurement (mass/volume)on 08-26-2021 Creatinine [Mass/Vol] 0.77 mg/dL 0.55-1.02 [facility] Work Phone: Comment on above: The validity of the calculated GFR & GFRAA in patients over 70 years has not been determined. Clinical correlation is essential. Serum or plasma urea nitroge n measurement (mass/volume)on 08-26-2021 Urea nitrogen [Mass/Vol] 12 mg/dL 7-18 [facility] Work Phone: Thin prep Papanicolaou smear with manual screeningon 08-26-2021 Thin prep Papanicolaou smear with manual screening 3 5-15 [facility] Work Phone: Basophil percentageon 2021 WBC (Bld) [#/Vol] 6.6 10*3/uL 4.4-11.0 [facility] Work Phone: Blood erythrocytes count (nu mber/volume)on 08-23-2021 RBC (Bld) [#/Vol] 2.94 10*6/uL 4.2-5.4 [facility] Work Phone: Blood hemoglobin measurement (mass/volume)on 08-23-2021 Hemoglobin (Bld) [Mass/Vol] 8.2 g/dL 12.0-15.0 [facility] Work Phone: Blood platelet mean volumeon 08-23-2021 Platelet mean volume (Bld) [Entitic vol] 9.3 fL 6.2-12.0 [facility] Work Phone: Determination of erythrocyte mean corpuscular volume (MCV)on 08-23-2021 MCV (RBC) [Entitic vol] 89.8 fL 81-99 [facility] Work Phone: Hematocrit Auto (Bld) [Volum e fraction]on 08-23-2021 Hematocrit (Bld) [Volume fraction] 26.4 % 37-47 [facility] Work Phone: INR in Blood by Coagulation assayon 08-23-2021 INR Coag (Bld) [Relative time] 2.8 {INR} [facility] Work Phone: [phone] Laboratory - Coagulationon 0 08-23-2021 aPTT Coag (Bld) [Time] 46.5 s 24.1-36.2 [facility] Work Phone: [phone] PT Coag (PPP) [Time] 28.8 s 11.7-14.9 [facility] Work Phone: [phone] Laboratory - Hematology and Cell countson 08-23-2021 Erythrocyte distribution width (RBC) [Entitic vol] 56.3 fL 35.1-43.9 [facility] Work Phone: [phone] Erythrocyte distribution width (RBC) [Ratio] 17.0 % 11.6-14.6 [facility] Work Phone: [phone] MCH (RBC) [Entitic mass] 27.9 pg 27.0-32.0 [facility] Work Phone: [phone] MCHC Auto (RBC) [Mass/Vol]on 08-23-2021 MCHC (RBC) [Mass/Vol] 31.1 g/dL 32-36 [facility] Work Phone: [phone] Platelets bldon 08-23-2021 Platelets (Bld) [#/Vol] 160 10*3/uL 150-450 [facility] Work Phone: [phone] CBC panel Auto (Bld)on 08-13 Erythrocyte distribution width (RBC) [Ratio] 16.9 % High 11.5-15.0 [facility] Comment on above: Order Comment: Speci men Type: BLOOD SPECIMENOrdering Facility: [facility] Address: [address] [place] [address] Performed By: #### 5 8410-2 ####[facility] LABORATORYCLIA [id number] [place] [address] [place] Hematocrit (Bld) [Volume fraction] 25.6 % Low 36.0-46.0 [facility] Comment on above: Order Comment: Speci men Type: BLOOD SPECIMENOrdering Facility: [facility] Address: [address] [place] [address] Performed By: #### 5 8410-2 ####[facility] LABORATORYCLIA [id number] [address] Hemoglobin (Bld) [Mass/Vol] 8.2 g/dL Low 11.5-15.5 [facility] Comment on above: Order Comment: Speci men Type: BLOOD SPECIMENOrdering Facility: [facility] Address: [address] [place] [address] Performed By: #### 5 8410-2 ####[facility] LABORATORYCLIA [id number] [address] MCH (RBC) [Entitic mass] 28.4 pg Normal 26.0-34.0 [facility] Comment on above: Order Comment: Speci men Type: BLOOD SPECIMENOrdering Facility: [facility] Address: [address] [place] [address] Performed By: #### 5 8410-2 ####[facility] LABORATORYCLIA [id number] [address] MCHC (RBC) [Mass/Vol] 32.0 g/dL Normal 30.5-36.0 [facility] Comment on above: Order Comment: Speci men Type: BLOOD SPECIMENOrdering Facility: [facility] Address: [address] [place] [address] Performed By: #### 5 8410-2 ####[facility] LABORATORYCLIA [id number] [address] MCV (RBC) [Entitic vol] 88.6 fL Normal 80.0-100.0 [facility] Comment on above: Order Comment: Speci men Type: BLOOD SPECIMENOrdering Facility: [facility] Address: [address] [place] [address] Performed By: #### 5 8410-2 ####[facility] LABORATORYCLIA [id number] [address] Nucleated RBC (Bld) [#/Vol] 10*3/uL Normal <0.01 [facility] Comment on above: Order Comment: Speci men Type: BLOOD SPECIMENOrdering Facility: [facility] Address: [address] Performed By: #### 5 8410-2 ####[facility] LABORATORYCLIA [id number] [address] [place] Platelet mean volume (Bld) [Entitic vol] 9.3 fL Normal 9.0-12.7 [facility] Comment on above: Order Comment: Speci men Type: BLOOD SPECIMENOrdering Facility: [facility] Address: [address] Performed By: #### 5 8410-2 ####[facility] LABORATORYCLIA [id number] [address] [place] Platelets (Bld) [#/Vol] 108 10*3/uL Low 150-400 [facility] Comment on above: Order Comment: Speci men Type: BLOOD SPECIMENOrdering Facility: [facility] Address: [address] [place], [place] [address] Performed By: #### 5 8410-2 ####ROD[facility] LABORATORYCLIA [id number] [place] [address] [facility] [place] RBC (Bld) [#/Vol] 2.89 10*6/uL Low 3.90-5.20 [facility] Comment on above: Order Comment: Speci men Type: BLOOD SPECIMENOrdering Facility: [facility] Address: [address] Performed By: #### 5 8410-2 ####[facility] LABORATORYCLIA [id number] [address] [place] WBC (Bld) [#/Vol] 5.19 10*3/uL Normal 3.70-11.00 [facility] Comment on above: Order Comment: Speci men Type: BLOOD SPECIMENOrdering Facility: [facility] Address: [address] [place], [place] [address] Performed By: #### 5 8410-2 ####[facility] LABORATORYCLIA [id number] [address] [place] RAMOSDSon 08-13-2021 [facility] HNO ID: [id number] Author: Alisha Velásquez PA-C Service: Hospital Medicine Author Type: Physician Bag Loader Machine Operator Type: Discharge Summary Filed: 08/13/2021 1:52 PM Note Text: Attestation signed by Catarina Ragsdale MD at 08/27/2021 10:25 PM Attending Note I have personally reviewed the ARTEMIO/DALILA note. Agree with above assessment and plan. [...] Attending Provider: Catarina Ragsdale MD Primary Service: [place] [address] Physician Bag Loader Machine Operator: Alisha Velásquez PA-C Consulting: Samuel Qiu [...] DISPOSITION: Ho (more content not included)... Normal [facility] Comprehensive metabolic 2000 panelon 08-13-2021 Albumin [Mass/Vol] 2.9 g/dL Low 3.9-4.9 [facility] Comment on above: Order Comment: Olga coley Type: BLOOD SPECIMEN [facility] Address: [address] [place] [address] Performed By: #### 5 7021-8 #### [facility] CLIA [id number] [address] [place] [address] [place] [facility] ALP [Catalytic activity/Vol] 71 U/L Normal 34-123 [facility] Comment on above: Order Comment: Olga men Type: BLOOD SPECIMEN [facility] Address: [address] [place] [place] [address] Performed By: #### 5 7021-8 #### [facility] CLIA [id number] [address] [place] ALT [Catalytic activity/Vol] 14 U/L Normal 7-38 [facility] Comment on above: Order Comment: Olga men Type: BLOOD SPECIMEN [facility] Address: [address] [place] [address] Performed By: #### 5 7021-8 #### [facility] CLIA [id number] [address] [place] [address] [place] Anion gap [Moles/Vol] 9 mmol/L Normal 9-18 [facility] Comment on above: Order Comment: Speci men Type: BLOOD SPECIMEN [facility] Address: [address] [place] [address] Performed By: #### 5 7021-8 #### [facility] CLIA [id number] [address] [place] [address] [place] AST [Catalytic activity/Vol] 28 U/L Normal 13-35 [facility] Comment on above: Order Comment: Speci men Type: BLOOD SPECIMEN [facility] Address: [address] [place] [address] Performed By: #### 5 7021-8 #### [facility] CLIA [id number] [address] [place] [address] [place] Bilirubin [Mass/Vol] 0.5 mg/dL Normal 0.2-1.3 [facility] Comment on above: Order Comment: Speci men Type: BLOOD SPECIMEN [facility] Address: [address] [place] [address] Performed By: #### 5 7021-8 #### [facility] CLIA [id number] [address] [place] Calcium [Mass/Vol] 8.5 mg/dL Normal 8.5-10.2 [facility] Comment on above: Order Comment: Speci men Type: BLOOD SPECIMEN [facility] Address: [address] [place] [address] Performed By: #### 5 7021-8 #### [facility] CLIA [id number] [address] [place] Chloride [Moles/Vol] 110 mmol/L High 97-105 [facility] Comment on above: Order Comment: Speci men Type: BLOOD SPECIMEN [facility] Address: [address] [place] [address] Performed By: #### 5 7021-8 #### [facility] CLIA [id number] [address] CO2 [Moles/Vol] 23 mmol/L Normal 22-30 [facility] Comment on above: Order Comment: lOga coley Type: BLOOD SPECIMEN [facility] Address: [address] [place] [address] Performed By: #### 5 7021-8 #### [facility] CLIA [id number] [address] [place] Creatinine [Mass/Vol] 0.74 mg/dL Normal 0.58-0.96 [facility] Comment on above: Order Comment: Olga coley Type: BLOOD SPECIMEN [facility] Address: [address] [place] [address] Performed By: #### 5 7021-8 #### [facility] CLIA [id number] [address] ESTIMATED GLOMERULAR FILTRATION RATE 79 mL/min/1.73m??? Normal >=60 [facility] Comment on above: Order Comment: Olga coley Type: BLOOD SPECIMEN Ordering Facility: [facility] Address: [address] [place] [address] Result Comment: Huma mated Glomerular Filtration Rate [...] GFR. Performed By: #### 5 7021-8 #### [facility] CLIA [id number] [address] [place] Glucose [Mass/Vol] 126 mg/dL High 74-99 [facility] Comment on above: Order Comment: Olga coley Type: BLOOD SPECIMEN Ordering Facility: [facility] Address: [address] [place] [address] Result Comment: The [employer] [place] [employer] (ADA) provides guidance for [...] Standards of Medical Care in Diabetes 2016, [employer] [place] [employer]. Diabetes Care. 2016.39(Suppl 1). Performed By: #### 5 7021-8 #### [facility] CLIA [id number] 1000 [place] [address] [place] Potassium [Moles/Vol] 4.0 mmol/L Normal 3.7-5.1 [facility] Comment on above: Order Comment: Olga coley Type: BLOOD SPECIMEN Ordering Facility: [facility] Address: [address] [place] [address] Performed By: #### 5 7021-8 #### [facility] CLIA [id number] [address] [place] Protein [Mass/Vol] 6.5 g/dL Normal 6.3-8.0 [facility] Comment on above: Order Comment: Olga coley Type: BLOOD SPECIMEN Ordering Facility: [facility] Address: [address] [place] [address] Performed By: #### 5 7021-8 #### [facility] CLIA [id number] [address] [place] Sodium [Moles/Vol] 142 mmol/L Normal 136-144 [facility] Comment on above: Order Comment: Olga coley Type: BLOOD SPECIMEN Ordering Facility: [facility] Address: [address] [place] [address] Performed By: #### 5 7021-8 #### [facility] CLIA [id number] [address] [place] Urea nitrogen [Mass/Vol] 11 mg/dL Normal 7-21 [facility] Comment on above: Order Comment: Olga coley Type: BLOOD SPECIMEN Ordering Facility: [facility] Address: [address] [id number] Performed By: #### 5 7021-8 #### [facility] CLIA [id number] [address] [place] Magnesium SerPl-mCncon 08-13 Magnesium [Mass/Vol] 2.1 mg/dL Normal 1.7-2.3 [facility] Comment on above: Order Comment: Olga coley Type: BLOOD SPECIMEN Ordering Facility: [facility] Address: [address] [place], [place] [address] Performed By: #### 5 7021-8 #### [facility] CLIA [id number] [address] STATES OF [facility] PT panel Coag (PPP)on 2021 INR Coag (PPP) [Relative time] 2.0 {INR} High 0.9-1.3 [facility] Comment on above: Order Comment: Olga coley Type: BLOOD SPECIMENOrdering Facility: [facility] Address: [address] [place] [address] Result Comment: Maricruz min K Antagonist (VKA) Therapeutic Range: INR 2 to 3 (Target INR of 2.5) Note: For patients treated with VKA drugs, such as warfarin, the [employer] 2012 Guideline [...] 141:7S-47S Geri RA et al. [facility] 2017, 70: 252-289 Performed By: #### 3 4528-0 ####[facility] [id number] [address] [place] PT Coag (PPP) [Time] 20.1 s High 9.7-13.0 [facility] Comment on above: Order Comment: Speci men Type: BLOOD SPECIMENOrdering Facility: [facility] Address: [address] [address] Performed By: #### 3 4528-0 ####[facility] [id number] [place] [address] [facility] [place] Bacteria Bld Culton 08-13-19 22 Bacteria identified Cx Nom (Bld) CULTURE, BLOOD: No growth 5 days Normal [facility] Comment on above: Performed By: #### 6 00-7 ####[facility] LABCLIA [id number] [address] [place] Bacteria identified Cx Nom (Bld) CULTURE, BLOOD: No growth 5 days Normal [facility] Comment on above: Performed By: #### 6 00-7 ####[facility] LABCLIA [id number] [address] [place] Bacteria Ur Culton 2 [...] F Susceptible <=40 , Resistant >40 Abnormal [facility] Comment on above: Performed By: #### 6 30-4 ####[facility] LABCLIA [id number] [address] OF [facility] CBC W Auto Differential pane l (Bld)on 08-12-2021 Basophils (Bld) [#/Vol] 10*3/uL Normal <0.11 [facility] Comment on above: Order Comment: Speci vianca Type: BLOOD SPECIMEN Ordering Facility: [facility] Address: [address] [place] [address] Performed By: #### 5 7021-8 #### [facility] CLIA [id number] [address] Basophils/100 WBC (Bld) 0.4 % Normal [facility] Comment on above: Order Comment: Olga coley Type: BLOOD SPECIMEN Ordering Facility: [facility] Address: [address] [place] [address] Performed By: #### 5 7021-8 #### [facility] CLIA [id number] [address] Differential cell count method Nom (Bld) Auto Normal [facility] Comment on above: Order Comment: Speci men Type: BLOOD SPECIMEN Ordering Facility: [facility] Address: [address] [place] [address] Performed By: #### 5 7021-8 #### [facility] CLIA [id number] [address] [place] [address] [place] Eosinophils (Bld) [#/Vol] 0.07 10*3/uL Normal <0.46 [facility] Comment on above: Order Comment: Speci men Type: BLOOD SPECIMEN Ordering Facility: [facility] Address: [address] [place] [address] Performed By: #### 5 7021-8 #### [facility] CLIA [id number] [address] Eosinophils/100 WBC (Bld) 1.4 % Normal [facility] Comment on above: Order Comment: Speci men Type: BLOOD SPECIMEN Ordering Facility: [facility] Address: [address] [place] [address] Performed By: #### 5 7021-8 #### [facility] CLIA [id number] [address] [place] Erythrocyte distribution width (RBC) [Ratio] 16.9 % High 11.5-15.0 [facility] Comment on above: Order Comment: Speci men Type: BLOOD SPECIMEN Ordering Facility: [facility] Address: [address] [place] [address] Performed By: #### 5 7021-8 #### [facility] CLIA [id number] [address] [place] Hematocrit (Bld) [Volume fraction] 25.7 % Low 36.0-46.0 [facility] Comment on above: Order Comment: Speci men Type: BLOOD SPECIMEN Ordering Facility: [facility] Address: [address] [place] [address] Performed By: #### 5 7021-8 #### [facility] CLIA [id number] [address] Hemoglobin (Bld) [Mass/Vol] 8.1 g/dL Low 11.5-15.5 [facility] Comment on above: Order Comment: Speci men Type: BLOOD SPECIMEN Ordering Facility: [facility] Address: [address] [place] [address] Performed By: #### 5 7021-8 #### [facility] CLIA [id number] [address] [place] IMMATURE GRAN % 0.4 % Normal [facility] Comment on above: Order Comment: Speci men Type: BLOOD SPECIMEN Ordering Facility: [facility] Address: [address] [place] [address] Performed By: #### 5 7021-8 #### [facility] CLIA [id number] [address] IMMATURE GRAN ABS <0.03 Normal <0.10 [facility] Comment on above: Order Comment: Speci men Type: BLOOD SPECIMEN Ordering Facility: [facility] Address: [address] [place] [address] Performed By: #### 5 7021-8 #### [facility] CLIA [id number] [address] [place] Lymphocytes (Bld) [#/Vol] 1.28 10*3/uL Normal 1.00-4.00 [facility] Comment on above: Order Comment: Speci men Type: BLOOD SPECIMEN Ordering Facility: [facility] Address: [address] [place] [address] Performed By: #### 5 7021-8 #### [facility] CLIA [id number] [address] Lymphocytes/100 WBC (Bld) 25.5 % Normal [facility] Comment on above: Order Comment: Speci men Type: BLOOD SPECIMEN Ordering Facility: [facility] Address: [address] [place] [address] Performed By: #### 5 7021-8 #### [facility] CLIA [id number] [address] MCH (RBC) [Entitic mass] 28.7 pg Normal 26.0-34.0 [facility] Comment on above: Order Comment: Speci men Type: BLOOD SPECIMEN Ordering Facility: [facility] Address: [address] [place] [address] Performed By: #### 5 7021-8 #### [facility] CLIA [id number] [address] MCHC (RBC) [Mass/Vol] 31.5 g/dL Normal 30.5-36.0 [facility] Comment on above: Order Comment: Speci men Type: BLOOD SPECIMEN Ordering Facility: [facility] Address: [address] [place] [address] Performed By: #### 5 7021-8 #### [facility] CLIA [id number] [address] MCV (RBC) [Entitic vol] 91.1 fL Normal 80.0-100.0 [facility] Comment on above: Order Comment: Speci men Type: BLOOD SPECIMEN Ordering Facility: [facility] Address: [address] [place] [address] Performed By: #### 5 7021-8 #### [facility] CLIA [id number] [address] Monocytes (Bld) [#/Vol] 0.75 10*3/uL Normal <0.87 [facility] Comment on above: Order Comment: Speci men Type: BLOOD SPECIMEN Ordering Facility: [facility] Address: [address] [place] [address] Performed By: #### 5 7021-8 #### [facility] CLIA [id number] [address] Monocytes/100 WBC (Bld) 15.0 % Normal [facility] Comment on above: Order Comment: Speci men Type: BLOOD SPECIMEN Ordering Facility: [facility] Address: [address] [place] [address] Performed By: #### 5 7021-8 #### [facility] CLIA [id number] 1000 [place] [address] [place] Neutrophils (Bld) [#/Vol] 2.87 10*3/uL Normal 1.45-7.50 [facility] Comment on above: Order Comment: Speci men Type: BLOOD SPECIMEN Ordering Facility: [facility] Address: [address] [place] [address] Performed By: #### 5 7021-8 #### [facility] CLIA [id number] [address] [place] Neutrophils/100 WBC (Bld) 57.3 % Normal [facility] Comment on above: Order Comment: Speci men Type: BLOOD SPECIMEN Ordering Facility: [facility] Address: [address] [place] [address] Performed By: #### 5 7021-8 #### [facility] CLIA [id number] 1000 [place] [address] [place] Nucleated RBC (Bld) [#/Vol] 10*3/uL Normal <0.01 [facility] Comment on above: Order Comment: Speci men Type: BLOOD SPECIMEN Ordering Facility: [facility] Address: [address] [place] [address] Performed By: #### 5 7021-8 #### [facility] CLIA [id number] [address] Nucleated RBC/100 WBC (Bld) [Ratio] 0.0 /100 WBC Normal [facility] Comment on above: Order Comment: Speci men Type: BLOOD SPECIMEN Ordering Facility: [facility] Address: [address] [place] [address] Performed By: #### 5 7021-8 #### [facility] CLIA [id number] [address] [place] Platelet mean volume (Bld) [Entitic vol] 9.6 fL Normal 9.0-12.7 [facility] Comment on above: Order Comment: Speci men Type: BLOOD SPECIMEN Ordering Facility: [facility] Address: [address] [place] [address] Performed By: #### 5 7021-8 #### [facility] CLIA [id number] [address] [place] Platelets (Bld) [#/Vol] 116 10*3/uL Low 150-400 [facility] Comment on above: Order Comment: Speci men Type: BLOOD SPECIMEN Ordering Facility: [facility] Address: [address] [place] [address] Performed By: #### 5 7021-8 #### [facility] CLIA [id number] [address] [place] RBC (Bld) [#/Vol] 2.82 10*6/uL Low 3.90-5.20 [facility] Comment on above: Order Comment: Speci men Type: BLOOD SPECIMEN Ordering Facility: [facility] Address: [address] [place] [address] Performed By: #### 5 7021-8 #### [facility] CLIA [id number] [address] WBC (Bld) [#/Vol] 5.01 10*3/uL Normal 3.70-11.00 [facility] Comment on above: Order Comment: Speci men Type: BLOOD SPECIMEN Ordering Facility: [facility] Address: [address] [place] [address] Performed By: #### 5 7021-8 #### [facility] CLIA [id number] [address] OF [facility] Comprehensive metabolic 2000 panelon 08-12-2021 Albumin [Mass/Vol] 3.1 g/dL Low 3.9-4.9 [facility] Comment on above: Order Comment: Speci men Type: BLOOD SPECIMENOrdering Facility: [facility] Address: [address] [place] [address] Performed By: #### P ADAN, 00441-5 ####[facility] [id number] [address] OF [facility] ALP [Catalytic activity/Vol] 78 U/L Normal 34-123 [facility] Comment on above: Order Comment: Speci men Type: BLOOD SPECIMENOrdering Facility: [facility] Address: [address] [address] Performed By: #### P ROCELBERT, 25839-4 ####[facility] [id number] [address] ALT [Catalytic activity/Vol] 15 U/L Normal 7-38 [facility] Comment on above: Order Comment: Speci men Type: BLOOD SPECIMENOrdering Facility: [facility] Address: [address] [place] [address] Performed By: #### P ADAN, 91922-4 ####[facility] [id number] [address] [place] [facility] Anion gap [Moles/Vol] 8 mmol/L Low 9-18 [facility] Comment on above: Order Comment: Speci men Type: BLOOD SPECIMENOrdering Facility: [facility] Address: [address] [place] [address] Performed By: #### P ADAN, 29632-7 ####[facility] [id number] [address] [place] AST [Catalytic activity/Vol] 31 U/L Normal 13-35 [facility] Comment on above: Order Comment: Speci men Type: BLOOD SPECIMENOrdering Facility: [facility] Address: [address] [place] [address] Performed By: #### P ADAN, 56809-0 ####[facility] [id number] [place] [address] [place] Bilirubin [Mass/Vol] 0.6 mg/dL Normal 0.2-1.3 [facility] Comment on above: Order Comment: Speci men Type: BLOOD SPECIMENOrdering Facility: [facility] Address: [address] [place] [address] Performed By: #### P ROCELBERT, 05666-8 ####[facility] [id number] [address] [place] Calcium [Mass/Vol] 8.7 mg/dL Normal 8.5-10.2 [facility] Comment on above: Order Comment: Speci men Type: BLOOD SPECIMENOrdering Facility: [facility] Address: [address] [place] [address] Performed By: #### P ROCELBERT, 55945-6 ####[facility] [id number] [place] [address] [place] Chloride [Moles/Vol] 106 mmol/L High 97-105 [facility] Comment on above: Order Comment: Speci men Type: BLOOD SPECIMENOrdering Facility: [facility] Address: [address] [place] [address] Performed By: #### P ROCAL, 05887-2 ####[facility] [id number] [place] [address] [place] CO2 [Moles/Vol] 24 mmol/L Normal 22-30 [facility] Comment on above: Order Comment: Speci men Type: BLOOD SPECIMENOrdering Facility: [facility] Address: [address] [place] [address] Performed By: #### P ROCAL, 76858-8 ####[facility] [id number] [place] [address] [place] Creatinine [Mass/Vol] 0.78 mg/dL Normal 0.58-0.96 [facility] Comment on above: Order Comment: Speci men Type: BLOOD SPECIMENOrdering Facility: [facility] Address: [address] [place] [address] Performed By: #### P ROCELBERT, 30951-5 ####[facility] [id number] [address] [place] ESTIMATED GLOMERULAR FILTRATION RATE 75 mL/min/1.73m??? Normal >=60 [facility] Comment on above: Order Comment: Speci men Type: BLOOD SPECIMENOrdering Facility: [facility] Address: [address] [place] [address] Result Comment: Huma mated Glomerular Filtration Rate [...] reflect actual GFR. Performed By: #### Jyoti ARELLANO 12580-7 ####[facility] [id number] [place] [address] [place] Glucose [Mass/Vol] 113 mg/dL High 74-99 [facility] Comment on above: Order Comment: Olga coley Type: BLOOD SPECIMENOrdering Facility: [facility] Address: [address] [id number] Result Comment: The [employer] [place] [employer] (ADA) provides guidance for [...] Standards of Medical Care in Diabetes 2016, [employer] [place] [employer]. Diabetes Care. 2016.39(Suppl 1). Performed By: #### Jyoti ARELLANO 53450-3 ####[facility] [id number] [place] [address] [place] Potassium [Moles/Vol] 3.6 mmol/L Low 3.7-5.1 [facility] Comment on above: Order Comment: Olga coley Type: BLOOD SPECIMENOrdering Facility: [facility] Address: [address] [place] [address] Performed By: #### Jyoti ARELLANO, 96072-4 ####[facility] [id number] [place] [address] [place] Protein [Mass/Vol] 7.0 g/dL Normal 6.3-8.0 [facility] Comment on above: Order Comment: Olga coley Type: BLOOD SPECIMENOrdering Facility: [facility] Address: [address] [id number] Performed By: #### P ROCELBERT, 88062-8 ####[facility] [id number] [address] [place] Sodium [Moles/Vol] 138 mmol/L Normal 136-144 [facility] Comment on above: Order Comment: Speci men Type: BLOOD SPECIMENOrdering Facility: [facility] Address: [address] [place] [address] Performed By: #### P ROCELBERT, 99212-0 ####[facility]ORYCLIA [id number] [place] [address] [place] Urea nitrogen [Mass/Vol] 13 mg/dL Normal 7-21 [facility] Comment on above: Order Comment: Speci men Type: BLOOD SPECIMENOrdering Facility: [facility] Address: [address] [place] [address] Performed By: #### P ADAN, 63682-4 ####[facility]IA [id number] [address] [place] ED NOTEon 08-12-2021 ED NOTE HNO ID: [id number] Author: Madonna Dimas RN Service: ? Author Type: Registered Nurse Type: ED Notes Filed: 08/12/2021 7:37 PM Note Text: Pt report was called to [facility] ED NOTE HNO ID: [id number] Author: Madonna Dimas RN Service: ? Author Type: Registered Nurse Type: ED Notes Filed: 08/12/2021 7:32 PM Note Text: Pt is ambulatory Family has been bedside [facility] ED NOTE HNO ID: [id number] Author: Madonna Dimas RN Service: ? Author Type: Registered Nurse Type: ED Notes Filed: 08/12/2021 6:23 PM Note Text: Waiting for a bed assignment in the hospital [facility] ED NOTE HNO ID: [id number] Author: Madonna Dimas RN Service: ? Author Type: Registered Nurse Type: ED Notes Filed: 08/12/2021 3:42 PM Note Text: Pt report was received [facility] ED NOTE HNO ID: [id number] Author: Marcela Sandoval RN Service: Nursing Author [...] started with a fever and hematuria today. [facility] ED PROV NOTEon 08-12-2021 ED PROV NOTE HNO ID: [id number] Author: Page Dudley MD Service: ? Author [...] was admitted earlier this month at [facility] for sepsis, seemingly from a [...] REMOVE TONSILS/ADENOIDS,<12 (more content not included)... Normal [facility] Gas and Carbon monoxide pane l (BldV)on 08-12-2021 Base excess Calc (BldV) [Moles/Vol] 0 mmol/L Normal 0-2 [facility] Comment on above: Order Comment: Speci men Type: VENOUS BLOOD SPECIMENOrdering Facility: [facility] Address: [address] [address] Performed By: #### 2 4344-4 ####[facility] [id number] [facility] RESPIRATORY [id number] [address] Carboxyhemoglobin (BldV) [Mass fraction] 1.0 % Normal 0.0-2.0 [facility] Comment on above: Order Comment: Speci men Type: VENOUS BLOOD SPECIMENOrdering Facility: [facility] Address: [address] [id number] Performed By: #### 2 4344-4 ####[facility] [id number] [place] [address] RESPIRATORY [id number] [address] [address] CO2 (BldV) [Partial pressure] 39 mm[Hg] Low 42-55 [facility] Comment on above: Order Comment: Speci men Type: VENOUS BLOOD SPECIMENOrdering Facility: [facility] Address: [address] Performed By: #### 2 4344-4 ####[facility] [id number] [facility] RES[facility]IRAT[facility] [id number] [address] CO2 adjusted to patient's actual temperature (BldV) [Partial pressure] Normal [facility] Comment on above: Order Comment: Speci men Type: VENOUS BLOOD SPECIMENOrdering Facility: [facility] Address: [address] Performed By: #### 2 4344-4 ####[facility]ORYCL[facility] [id number] [facility] [id number] [address] [address] HCO3 (Bld) [Moles/Vol] 24 mmol/L Normal 24-28 [facility] Comment on above: Order Comment: Speci men Type: VENOUS BLOOD SPECIMENOrdering Facility: [facility] Address: [address] Performed By: #### 2 4344-4 ####[facility]ORYCL[facility] [id number] [facility]OSP[facility] RES[facility] [id number] [address] [address] Hemoglobin (Bld) [Mass/Vol] 15.3 g/dL Normal 11.5-15.5 [facility] Comment on above: Order Comment: Speci men Type: VENOUS BLOOD SPECIMENOrdering Facility: [facility] Address: [address] Performed By: #### 2 4344-4 ####[facility]ORYCL[facility] [id number] [facility]OS[facility] RESPIR[facility] [id number] [address] Lactate [Moles/Vol] 1.9 mmol/L Normal 0.5-2.2 [facility] Comment on above: Order Comment: Speci men Type: VENOUS BLOOD SPECIMENOrdering Facility: [facility] Address: [address] Performed By: #### 2 4344-4 ####[facility]ORYCL[facility] [id number] [facility] RES[facility]IRAT[facility] [id number] [address] [address] Methemoglobin (Bld) [Mass fraction] % Normal 0.0-1.5 [facility] Comment on above: Order Comment: Speci men Type: VENOUS BLOOD SPECIMENOrdering Facility: [facility] Address: [address] [address] Performed By: #### 2 4344-4 ####[place] [facility] [id number] [facility] RESPIRATORY [id number] [address] [address] O2 THERAPY RA=Room Air Normal [facility] Comment on above: Order Comment: Speci men Type: VENOUS BLOOD SPECIMENOrdering Facility: [facility] Address: [address] Performed By: #### 2 4344-4 ####[facility] [id number] [facility]OSPITAL RESPIRATORY [id number] [address] [address] Oxygen (BldV) [Partial pressure] 43 mm[Hg] Normal 35-45 [facility] Comment on above: Order Comment: Speci men Type: VENOUS BLOOD SPECIMENOrdering Facility: [facility] Address: [address] Performed By: #### 2 4344-4 ####[facility] [id number] HOSPITAL RESPIRATORY [id number] [address] Oxygen adjusted to patient's actual temperature (BldV) [Partial pressure] Normal [facility] Comment on above: Order Comment: Speci men Type: VENOUS BLOOD SPECIMENOrdering Facility: [facility] Address: [address] Performed By: #### 2 4344-4 ####[facility] [id number] [facility] RESPIRATORY [id number] [address] [address] Oxyhemoglobin (BldV) [Mass fraction] 74 % Normal 60-85 [facility] Comment on above: Order Comment: Speci men Type: VENOUS BLOOD SPECIMENOrdering Facility: [facility] Address: [address] Performed By: #### 2 4344-4 ####[facility] RESPIRATORYCLIA [id number] [facility] [id number] [address] [address] pH (BldV) 7.41 [pH] Normal 7.32-7.42 [facility] Comment on above: Order Comment: Speci men Type: VENOUS BLOOD SPECIMENOrdering Facility: [facility] Address: [address] [place] [address] Performed By: #### 2 4344-4 ####[place] RESPIRATORYIA [id number] [facility] RESPIRATORY [id number] [place] [address] pH adjusted to patient's actual temperature (BldV) Normal [facility] Comment on above: Order Comment: Speci men Type: VENOUS BLOOD SPECIMENOrdering Facility: [facility] Address: [address] [place] [address] Performed By: #### 2 4344-4 ####[place] RESPIRATORYIA [id number] [facility] RESPIRATORY [id number] [place] [address] Potassium [Moles/Vol] 3.6 mmol/L Normal 3.5-5.0 [facility] Comment on above: Order Comment: Spectai coley Type: VENOUS BLOOD SPECIMENOrdering Facility: [facility] Address: [address] [place] [address] Performed By: #### 2 4344-4 ####[place] RESPIRATORYIA [id number] [facility] RESPIRATORY [id number] [address] [address] HISTORY PHYSICALon HISTORY PHYSICAL HNO ID: [id number] Author: Vania Oliveira APRN.CONSULTING ACTUARY Service: Hospital Medicine Author Type: Nurse Practitioner [...] Galina Iraheta MD NIGHT AND WEEKEND COVERAGE: [place] COVERAGE: Days: [phone], please page attending physician. Nights: [phone], please page [place] [facility] Night coverage pager [phone]. Subjective CHIEF COMPLAINT: dysuria HPI: 86yo female [...] sepsis as this was diagnosed recently at [facility], thus requesting admission for IV antibiotics. [...] BREAST NEEDLE (more content not included)... Normal [facility] PROCALCITONIN (LAB)on 2021 Procalcitonin [Mass/Vol] 0.11 ng/mL High <0.09 [facility] Comment on above: Order Comment: Speci men Type: BLOOD SPECIMENOrdering Facility: [facility] Address: [address] [place] [id number] Result Comment: For a guided interpretation of test results, please visit the Change in Procalcitonin Calculator, [email or web address]. Performed By: #### P ADAN, 22664-9 ####[place] LABORATORYCLIA [id number] [place], [place] [id number] [place] [address] OF [facility] PT panel Coag (PPP)on 2021 INR Coag (PPP) [Relative time] 2.0 {INR} High 0.9-1.3 [facility] Comment on above: Order Comment: Speci vianca Type: BLOOD SPECIMENOrdering Facility: [facility] Address: [address] [place], [place] [id number] Result Comment: Maricruz min K Antagonist (VKA) Therapeutic Range: INR 2 to 3 (Target INR of 2.5) Note: For patients treated with VKA drugs, such as warfarin, the [employer] 2012 Guideline [...] GH, et al. Chest 2012, 141:7S-47S Geri RA, et al. JACC 2017, 70: 252-289 Performed By: #### 3 4528-0, 44147-3 ####[place] LABORATORYCLIA [id number] [address] [place] PT Coag (PPP) [Time] 20.3 s High 9.7-13.0 [facility] Comment on above: Order Comment: Speci men Type: BLOOD SPECIMENOrdering Facility: [facility] Address: [address] [place] [address] Performed By: #### 3 4528-0, 40032-5 ####[facility] LABORATORYCLIA [id number] [address] SARS-CoV-2 RNA Resp Ql DEMARCUS+p robeon 08-12-2021 SARS-CoV-2 (COVID-19) RNA DEMARCUS+probe Ql (Resp) COVID 19 RESULT: SARS-CoV-2 (Agent of COVID-19) Not Detected by RT-PCR or equivalent method. This test has been authorized by FDA under an Emergency Use Authorization (EUA). Normal [facility] Comment on above: Performed By: #### 9 4500-6 ####[place] LABORATORYCLIA [id number] [address] [place] URINALYSIS, REFLEX MICROSCOP ICon 08-12-2021 Bilirubin Ql (U) Negative Normal Negative [facility] Comment on above: Order Comment: Speci men Type: URINE SPECIMENOrdering Facility: [facility] Address: [address] [place] [address] Performed By: #### L [id number] ####[place] LABORATORYCLIA [id number] [address] Clarity (Unsp spec) Clear Normal Clear [facility] Comment on above: Order Comment: Speci men Type: URINE SPECIMENOrdering Facility: [facility] Address: [address] [place] [address] Performed By: #### L [id number] ####[place] LABORATORYCLIA [id number] [address] Color (U) Yellow Normal Yellow [facility] Comment on above: Order Comment: Speci men Type: URINE SPECIMENOrdering Facility: [facility] Address: [address] [place] [address] Performed By: #### L [id number] ####[facility] LABORATORYCLIA [id number] [address] Glucose Test strip (U) [Mass/Vol] Negative Normal Negative [facility] Comment on above: Order Comment: Speci men Type: URINE SPECIMENOrdering Facility: [facility] Address: [address] [place] [address] Performed By: #### L [id number] ####[facility] LABORATORYCLIA [id number] [address] Hemoglobin Ql (U) Trace Abnormal Negative [facility] Comment on above: Order Comment: Speci men Type: URINE SPECIMENOrdering Facility: [facility] Address: [address] [place] [address] Performed By: #### L [id number] ####[facility] LABORATORYCLIA [id number] [address] [place] Ketones Ql (U) Negative Normal Negative [facility] Comment on above: Order Comment: Speci men Type: URINE SPECIMENOrdering Facility: [facility] Address: [address] [place] [address] Performed By: #### L [id number] ####[facility] LABORATORYCLIA [id number] [address] Leukocyte esterase Test strip Ql (U) 3+ Abnormal Negative [facility] Comment on above: Order Comment: Speci men Type: URINE SPECIMENOrdering Facility: [facility] Address: [address] [place] [address] Performed By: #### L [id number] ####[facility] LABORATORYCLIA [id number] [address] [place] Nitrite Ql (U) Negative Normal Negative [facility] Comment on above: Order Comment: Speci men Type: URINE SPECIMENOrdering Facility: [facility] Address: [address] [place] [address] Performed By: #### L [id number] ####[facility] LABORATORYCLIA [id number] [address] pH (U) 6.5 [pH] Normal 5.0-8.0 [facility] Comment on above: Order Comment: Speci men Type: URINE SPECIMENOrdering Facility: [facility] Address: [address] [place] [address] Performed By: #### L [id number] ####[facility] LABORATORYCLIA [id number] [address] [place] Protein (U) [Mass/Vol] Negative Normal Negative [facility] Comment on above: Order Comment: Speci men Type: URINE SPECIMENOrdering Facility: [facility] Address: [address] [place] [address] Performed By: #### L [id number] ####[facility] HOSPITALCLIA [id number] [place] [address] [place] RBC LM.HPF (Urine sed) [#/Area] 0-3 /HPF Normal 0-3 /HPF [facility] Comment on above: Order Comment: Speci men Type: URINE SPECIMENOrdering Facility: [facility] Address: [address] [place] [address] Performed By: #### L [id number] ####[facility] LABORATORYCLIA [id number] [address] Specific gravity (U) [Rel density] <=1.005 Low 1.005-1.030 [facility] Comment on above: Order Comment: Speci men Type: URINE SPECIMENOrdering Facility: [facility] Address: [address] [place] [address] Performed By: #### L [id number] ####[facility] LABORATORYCLIA [id number] [address] Urobilinogen Ql (U) 0.2 EU/dL Normal 0.2-1.0 EU/dL [facility] Comment on above: Order Comment: Speci men Type: URINE SPECIMENOrdering Facility: [facility] Address: [address] [place], [place] [address], [place] [address] Performed By: #### L [id number] ####[place] LABORATORYCLIA [id number] [address] OF [facility] WBC LM.HPF (Urine sed) [#/Area] /[HPF] Abnormal 0-5 /HPF [facility] Comment on above: Order Comment: Speci men Type: URINE SPECIMENOrdering Facility: [facility] Address: [address] [place] [place] [address] Performed By: #### L [id number] ####[place] LABORATORYCLIA [id number] [place] [address] [place] US DVT LOWER [...] imaged segments of the left lower extremity. Glue Maker: GRANT Transcribe Date/Time: Aug 12 2021 9:49P Dictated by : MEHRDAD INIGUEZ MD This examination was interpreted and the report reviewed and electronically signed by: MEHRDAD INIGUEZ MD on Aug 12 2021 9:50PM EST [id number] Normal [facility] aPTT PPPon 08-12-2021 aPTT Coag (PPP) [Time] 72.9 s High 23.0-32.4 [facility] Comment on above: Order Comment: Speci men Type: BLOOD SPECIMENOrdering Facility: [facility] Address: [address] [place], [place] [id number] Performed By: #### 3 4528-0, 28826-7 ####[place] LABORATORYCLIA [id number] [place] [address] [place] UA DIP, URINE (POC)on 2021 BILIRUBIN UA (POCT) Negative Negative [facility] CLARITY UA (POCT) Clear [facility] COLOR UA (POCT) Yellow [facility] GLUCOSE UA (POCT) Negative Negative mg/dL [facility] HEMOGLOBIN/BLOOD UA (POCT) Trace-intact Abnormal Negative [facility] KETONE UA (POCT) Negative Negative mg/dL [facility] LEUKOCYTES UA (POCT) Small Abnormal Negative [facility] NITRITE UA (POCT) Negative Negative [facility] PH UA (POCT) 6.5 4.5 - 8.[address] [facility] Protein Ql (U) Negative Negative mg/dL [facility] SPECIFIC GRAVITY UA (POCT) 1.010 1.005 - 1.[address] [facility] UROBILINOGEN UA (POCT) 0.2 E.U./dL Winifred l E.U./dL [facility] Absolute lymphocyte counton 07-23-2021 Lymphocytes Auto (Unsp spec) [#/Vol] 1.68 10*3/uL 0.83-4.51 [facility] Work Phone: Basophil percentageon 2021 Basophils/100 WBC (Bld) 0.7 % 0-1 [facility] Work Phone: Chloride [Moles/Vol] 109 mmol/L 98-107 [facility] Work Phone: Eosinophils/100 WBC (Bld) 1.3 % 0-5 [facility] Work Phone: Glucose [Mass/Vol] 79 mg/dL 74-106 [facility] Work Phone: Neutrophils (Bld) [#/Vol] 4.3 10*3/uL 2.0-7.7 [facility] Work Phone: Neutrophils/100 WBC (Bld) 61.7 % 47-70 [facility] Work Phone: Potassium [Moles/Vol] 3.8 mmol/L 3.5-5.1 [facility] Work Phone: Sodium [Moles/Vol] 143 mmol/L 136-145 [facility] Work Phone: WBC (Bld) [#/Vol] 7.0 10*3/uL 4.4-11.0 [facility] Work Phone: Blood erythrocytes count (nu mber/volume)on 07-23-2021 RBC (Bld) [#/Vol] 3.00 10*6/uL 4.2-5.4 [facility] Work Phone: Blood hemoglobin measurement (mass/volume)on 07-23-2021 Hemoglobin (Bld) [Mass/Vol] 9.0 g/dL 12.0-15.0 [facility] Work Phone: Blood lymphocytes/100 leukoc yteson 07-23-2021 Lymphocytes/100 WBC (Bld) 24.1 % 19-41 [facility] Work Phone: Blood monocytes/100 leukocyt eson 07-23-2021 Monocytes/100 WBC (Bld) 12.1 % 0-10 [facility] Work Phone: Blood platelet mean volumeon 07-23-2021 Platelet mean volume (Bld) [Entitic vol] 9.5 fL 6.2-12.0 [facility] Work Phone: Determination of erythrocyte mean corpuscular volume (MCV)on 07-23-2021 MCV (RBC) [Entitic vol] 94.0 fL 81-99 [facility] Work Phone: Hematocrit Auto (Bld) [Volum e fraction]on 07-23-2021 Hematocrit (Bld) [Volume fraction] 28.2 % 37-47 [facility] Work Phone: INR in Blood by Coagulation assayon 07-23-2021 INR Coag (Bld) [Relative time] 2.6 {INR} [facility] Work Phone: [phone] Laboratory - Chemistry and C hemistry - challengeon 07-23-2021 CO2 [Moles/Vol] 28.0 mmol/L 21.0-32.0 [facility] Work Phone: Magnesium [Mass/Vol] 2.2 mg/dL 1.6-2.6 [facility] Work Phone: Urea nitrogen/Creatinine [Mass ratio] 21.6 mg/mg 10-20 [facility] Work Phone: Laboratory - Coagulationon 0 07-23-2021 PT Coag (PPP) [Time] 27.5 s 11.7-14.9 [facility] Work Phone: Laboratory - Hematology and Cell countson 07-23-2021 Erythrocyte distribution width (RBC) [Entitic vol] 58.2 fL 35.1-43.9 [facility] Work Phone: [phone] Erythrocyte distribution width (RBC) [Ratio] 16.9 % 11.6-14.6 [facility] Work Phone: Immature granulocytes/100 WBC (Bld) 0.100 % 0.0-0.9 [facility] Work Phone: [phone] Comment on above: IG% - Immature Granu locytes (promyelocytes, myelocytes and metamyelocytes) > 1% indicates that a LEFT SHIFT is Present. MCH (RBC) [Entitic mass] 30.0 pg 27.0-32.0 [facility] Work Phone: Nucleated RBC/100 WBC (Bld) [Ratio] 0 % 0-5 [facility] Work Phone: MCHC Auto (RBC) [Mass/Vol]on 07-23-2021 MCHC (RBC) [Mass/Vol] 31.9 g/dL 32-36 [facility] Work Phone: No Panel Informationon 07-23 Estimated GFR (MDRD) Amer 112 mL/min >60 [facility] Work Phone: Comment on above: GFR Calc Estimated GFR (MDRD) Non-Af Amer 92 mL/min >60 [facility] Work Phone: Comment on above: Non- GFR Calc Platelets bldon 07-23-2021 Platelets (Bld) [#/Vol] 178 10*3/uL 150-450 [facility] Work Phone: Serum or plasma calcium yonatan urement (mass/volume)on 07-23-2021 Calcium [Mass/Vol] 8.9 mg/dL 8.5-10.1 [facility] Work Phone: Serum or plasma creatinine m easurement (mass/volume)on 07-23-2021 Creatinine [Mass/Vol] 0.65 mg/dL 0.55-1.02 [facility] Work Phone: Comment on above: The validity of the calculated GFR & GFRAA in patients over 70 years has not been determined. Clinical correlation is essential. Serum or plasma urea nitroge n measurement (mass/volume)on 07-23-2021 Urea nitrogen [Mass/Vol] 14 mg/dL 7-18 [facility] Work Phone: Thin prep Papanicolaou smear with manual screeningon 07-23-2021 Thin prep Papanicolaou smear with manual screening 6 5-15 [facility] Work Phone: Absolute lymphocyte counton 07-16-2021 Lymphocytes Auto (Unsp spec) [#/Vol] 1.54 10*3/uL 0.83-4.51 [facility] Work Phone: Basophil percentageon 2021 Basophils/100 WBC (Bld) 0.6 % 0-1 [facility] Work Phone: Chloride [Moles/Vol] 109 mmol/L 98-107 [facility] Work Phone: Eosinophils/100 WBC (Bld) 2.5 % 0-5 [facility] Work Phone: Glucose [Mass/Vol] 66 mg/dL 74-106 [facility] Work Phone: Neutrophils (Bld) [#/Vol] 4.2 10*3/uL 2.0-7.7 [facility] Work Phone: Neutrophils/100 WBC (Bld) 63.4 % 47-70 [facility] Work Phone: Potassium [Moles/Vol] 4.0 mmol/L 3.5-5.1 [facility] Work Phone: Sodium [Moles/Vol] 141 mmol/L 136-145 [facility] Work Phone: WBC (Bld) [#/Vol] 6.7 10*3/uL 4.4-11.0 [facility] Work Phone: Blood erythrocytes count (nu mber/volume)on 07-16-2021 RBC (Bld) [#/Vol] 3.05 10*6/uL 4.2-5.4 [facility] Work Phone: Blood hemoglobin measurement (mass/volume)on 07-16-2021 Hemoglobin (Bld) [Mass/Vol] 9.1 g/dL 12.0-15.0 [facility] Work Phone: Blood lymphocytes/100 leukoc yteson 07-16-2021 Lymphocytes/100 WBC (Bld) 23.1 % 19-41 [facility] Work Phone: Blood monocytes/100 leukocyt eson 07-16-2021 Monocytes/100 WBC (Bld) 10.3 % 0-10 [facility] Work Phone: Blood platelet mean volumeon 07-16-2021 Platelet mean volume (Bld) [Entitic vol] 9.7 fL 6.2-12.0 [facility] Work Phone: Determination of erythrocyte mean corpuscular volume (MCV)on 07-16-2021 MCV (RBC) [Entitic vol] 95.4 fL 81-99 [facility] Work Phone: Hematocrit Auto (Bld) [Volum e fraction]on 07-16-2021 Hematocrit (Bld) [Volume fraction] 29.1 % 37-47 [facility] Work Phone: [phone] INR in Blood by Coagulation assayon 07-16-2021 INR Coag (Bld) [Relative time] 1.8 {INR} [facility] Work Phone: Laboratory - Chemistry and C hemistry - challengeon 07-16-2021 CO2 [Moles/Vol] 27.0 mmol/L 21.0-32.0 [facility] Work Phone: [phone] Urea nitrogen/Creatinine [Mass ratio] 25.0 mg/mg 10-20 [facility] Work Phone: [phone] Laboratory - Coagulationon 0 07-16-2021 PT Coag (PPP) [Time] 20.7 s 11.7-14.9 [facility] Work Phone: Laboratory - Hematology and Cell countson 07-16-2021 Erythrocyte distribution width (RBC) [Entitic vol] 60.8 fL 35.1-43.9 [facility] Work Phone: [phone] Erythrocyte distribution width (RBC) [Ratio] 17.3 % 11.6-14.6 [facility] Work Phone: Immature granulocytes/100 WBC (Bld) 0.100 % 0.0-0.9 [facility] Work Phone: Comment on above: IG% - Immature Granu locytes (promyelocytes, myelocytes and metamyelocytes) > 1% indicates that a LEFT SHIFT is Present. MCH (RBC) [Entitic mass] 29.8 pg 27.0-32.0 [facility] Work Phone: Nucleated RBC/100 WBC (Bld) [Ratio] 0 % 0-5 [facility] Work Phone: MCHC Auto (RBC) [Mass/Vol]on 07-16-2021 MCHC (RBC) [Mass/Vol] 31.3 g/dL 32-36 [facility] Work Phone: No Panel Informationon 07-16 Estimated GFR (MDRD) Amer 122 mL/min >60 [facility] Work Phone: Comment on above: GFR Calc Estimated GFR (MDRD) Non-Af Amer 101 mL/min >60 [facility] Work Phone: Comment on above: Non- GFR Calc Thyroid Stimulating Hormone (TSH) 2.10 uIU/mL 0.358-3.74 [facility] Work Phone: Platelets bldon 07-16-2021 Platelets (Bld) [#/Vol] 228 10*3/uL 150-450 [facility] Work Phone: Serum or plasma calcium yonatan urement (mass/volume)on 07-16-2021 Calcium [Mass/Vol] 9.0 mg/dL 8.5-10.1 [facility] Work Phone: Serum or plasma creatinine m easurement (mass/volume)on 07-16-2021 Creatinine [Mass/Vol] 0.60 mg/dL 0.55-1.02 [facility] Work Phone: Comment on above: The validity of the calculated GFR & GFRAA in patients over 70 years has not been determined. Clinical correlation is essential. Serum or plasma urea nitroge n measurement (mass/volume)on 07-16-2021 Urea nitrogen [Mass/Vol] 15 mg/dL 7-18 [facility] Work Phone: [phone] Thin prep Papanicolaou smear with manual screeningon 07-16-2021 Thin prep Papanicolaou smear with manual screening 5 5-15 [facility] Work Phone: [phone] Absolute lymphocyte counton 07-13-2021 Lymphocytes Auto (Unsp spec) [#/Vol] 1.70 10*3/uL 0.83-4.51 [facility] Work Phone: Basophil percentageon 2021 Basophils/100 WBC (Bld) 0.7 % 0-1 [facility] Work Phone: [phone] Cholesterol [Mass/Vol] 113 mg/dL <200 [facility] Work Phone: [phone] Comment on above: <200 mg/dL Desirable 200-240 mg/dL Borderline >240 mg/dL High Risk Eosinophils/100 WBC (Bld) 2.9 % 0-5 [facility] Work Phone: [phone] Neutrophils (Bld) [#/Vol] 5.5 10*3/uL 2.0-7.7 [facility] Work Phone: [phone] Neutrophils/100 WBC (Bld) 65.5 % 47-70 [facility] Work Phone: [phone] Triglyceride [Mass/Vol] 95 mg/dL <199 [facility] Work Phone: Comment on above: The drugs N-Acetylcy steine and Metamizole may falsely depress this assay.Serum Triglycerides Reference Interval Normal <150 mg/dL Borderline high 150 - 199 mg/dL High 200 - 499 mg/dL Very High > or = 500 mg/dL WBC (Bld) [#/Vol] 8.4 10*3/uL 4.4-11.0 [facility] Work Phone: Blood erythrocytes count (nu mber/volume)on 07-13-2021 RBC (Bld) [#/Vol] 3.14 10*6/uL 4.2-5.4 [facility] Work Phone: Blood hemoglobin measurement (mass/volume)on 07-13-2021 Hemoglobin (Bld) [Mass/Vol] 9.4 g/dL 12.0-15.0 [facility] Work Phone: Blood lymphocytes/100 leukoc yteson 07-13-2021 Lymphocytes/100 WBC (Bld) 20.3 % 19-41 [facility] Work Phone: Blood monocytes/100 leukocyt eson 07-13-2021 Monocytes/100 WBC (Bld) 10.0 % 0-10 [facility] Work Phone: Blood platelet mean volumeon 07-13-2021 Platelet mean volume (Bld) [Entitic vol] 9.7 fL 6.2-12.0 [facility] Work Phone: Determination of erythrocyte mean corpuscular volume (MCV)on 07-13-2021 MCV (RBC) [Entitic vol] 94.6 fL 81-99 [facility] Work Phone: Hematocrit Auto (Bld) [Volum e fraction]on 07-13-2021 Hematocrit (Bld) [Volume fraction] 29.7 % 37-47 [facility] Work Phone: [phone] INR in Blood by Coagulation assayon 07-13-2021 INR Coag (Bld) [Relative time] 1.4 {INR} [facility] Work Phone: [phone] Laboratory - Chemistry and C hemistry - challengeon 07-13-2021 Magnesium [Mass/Vol] 2.2 mg/dL 1.6-2.6 [facility] Work Phone: Laboratory - Coagulationon 0 07-13-2021 PT Coag (PPP) [Time] 16.4 s 11.7-14.9 [facility] Work Phone: [phone] Laboratory - Hematology and Cell countson 07-13-2021 Erythrocyte distribution width (RBC) [Entitic vol] 58.6 fL 35.1-43.9 [facility] Work Phone: Erythrocyte distribution width (RBC) [Ratio] 17.2 % 11.6-14.6 [facility] Work Phone: Immature granulocytes/100 WBC (Bld) 0.600 % 0.0-0.9 [facility] Work Phone: Comment on above: IG% - Immature Granu locytes (promyelocytes, myelocytes and metamyelocytes) > 1% indicates that a LEFT SHIFT is Present. MCH (RBC) [Entitic mass] 29.9 pg 27.0-32.0 [facility] Work Phone: Nucleated RBC/100 WBC (Bld) [Ratio] 0 % 0-5 [facility] Work Phone: MCHC Auto (RBC) [Mass/Vol]on 07-13-2021 MCHC (RBC) [Mass/Vol] 31.6 g/dL 32-36 [facility] Work Phone: No Panel Informationon 07-13 Thyroid Stimulating Hormone (TSH) 3.09 uIU/mL 0.358-3.74 [facility] Work Phone: Platelets bldon 07-13-2021 Platelets (Bld) [#/Vol] 240 10*3/uL 150-450 [facility] Work Phone: Serum or plasma cholesterol in HDL measurement (mass/volume)on 07-13-2021 Cholesterol in HDL [Mass/Vol] 26 mg/dL >40 [facility] Work Phone: Comment on above: The drugs N-Acetylcy steine and Metamizole may falsely depress this assay. Reference Range HDL <40 mg/dL Low HDL Cholesterol HDL >or= 60 mg/dL High HDL Cholesterol Serum or plasma cholesterol in VLDL measurement (mass/volume)on 07-13-2021 Cholesterol in VLDL [Mass/Vol] 19 mg/dL 5-40 [facility] Work Phone: Serum or plasma low density lipoprotein (LDL) cholesterol measurement (mass/volume)on 07-13-2021 Cholesterol in LDL [Mass/Vol] 68 mg/dL 0-130 [facility] Work Phone: Serum or plasma transthyreti n measurement (mass/volume)on 07-13-2021 Prealbumin [Mass/Vol] 11.5 mg/dL 20.0-40.0 [facility] Work Phone: Whole blood hemoglobin A1c/t otal hemoglobin ratio (mass fraction)on 07-13-2021 HbA1c (Bld) [Mass fraction] 5.0 % 3.8-5.6 [facility] Work Phone: Comment on above: Normal < 5.7 % Predi abetic 5.7 - 6.4 % Diabetic >or= 6.5 % Please note range changes. HBV surface Ab IA Ql (S)on 0 07-05-2021 HBV surface Ag Ql (S) Negative Negative [facility] HEP A AB IGMon 07-05-2021 HAV IgM Ql (S) Negative Negative [facility] HEP B CORE AB IGMon 07-06-19 HBV core IgM Ql (S) Negative Negative [facility] HEP C AB IA W/CONF SCRNon HCV Ab Ql (S) Negative Negative [facility] [facility] Absolute lymphocyte counton 07-03-2021 Lymphocytes Auto (Unsp spec) [#/Vol] 0.96 10*3/uL 0.83-4.51 [facility] Work Phone: Basophil percentageon 2021 Basophil percentage 5-10 SEEN /hpf 0-5 [facility] Work Phone: Basophils/100 WBC (Bld) 0.4 % 0-1 [facility] Work Phone: Bilirubin [Mass/Vol] 2.30 mg/dL 0.20-1.00 [facility] Work Phone: Comment on above: For patients on eltr ombopag therapy, use of Dimension [place] TBIL is not recommended. Chloride [Moles/Vol] 106 mmol/L 98-107 [facility] Work Phone: Eosinophils/100 WBC (Bld) 1.4 % 0-5 [facility] Work Phone: Glucose [Mass/Vol] 114 mg/dL 74-106 [facility] Work Phone: Comment on above: Fasting Glucose resu lt from 100 to 125 mg/dL suggests IMPAIRED HOMEOSTASIS per A.D.A. criteria. Neutrophils (Bld) [#/Vol] 7.5 10*3/uL 2.0-7.7 [facility] Work Phone: Neutrophils/100 WBC (Bld) 77.6 % 47-70 [facility] Work Phone: Potassium [Moles/Vol] 4.0 mmol/L 3.5-5.1 [facility] Work Phone: Protein [Mass/Vol] 7.5 g/dL 6.4-8.2 [facility] Work Phone: Sodium [Moles/Vol] 137 mmol/L 136-145 [facility] Work Phone: WBC (Bld) [#/Vol] 9.7 10*3/uL 4.4-11.0 [facility] Work Phone: Bilirubin Test strip Ql (U)o n 07-03-2021 Bilirubin Ql (U) Negative Negative [facility] Work Phone: Blood erythrocytes count (nu mber/volume)on 07-03-2021 RBC (Bld) [#/Vol] 3.10 10*6/uL 4.2-5.4 [facility] Work Phone: Blood hemoglobin measurement (mass/volume)on 07-03-2021 Hemoglobin (Bld) [Mass/Vol] 9.3 g/dL 12.0-15.0 [facility] Work Phone: Blood lymphocytes/100 leukoc yteson 07-03-2021 Lymphocytes/100 WBC (Bld) 9.9 % 19-41 [facility] Work Phone: Blood monocytes/100 leukocyt eson 07-03-2021 Monocytes/100 WBC (Bld) 10.2 % 0-10 [facility] Work Phone: Blood platelet mean volumeon 07-03-2021 Platelet mean volume (Bld) [Entitic vol] 9.2 fL 6.2-12.0 [facility] Work Phone: [phone] Determination of erythrocyte mean corpuscular volume (MCV)on 07-03-2021 MCV (RBC) [Entitic vol] 94.2 fL 81-99 [facility] Work Phone: [phone] Direct bilirubinon Bilirubin.direct [Mass/Vol] 1.82 mg/dL 0.00-0.30 [facility] Work Phone: [phone] Hematocrit Auto (Bld) [Volum e fraction]on 07-03-2021 Hematocrit (Bld) [Volume fraction] 29.2 % 37-47 [facility] Work Phone: [phone] INR in Blood by Coagulation assayon 07-03-2021 INR Coag (Bld) [Relative time] 3.6 {INR} [facility] Work Phone: [phone] Ketones Test strip Ql (U)on 07-03-2021 Ketones Ql (U) Negative Negative [facility] Work Phone: [phone] Laboratory - Chemistry and C hemistry - challengeon 07-03-2021 ALP [Catalytic activity/Vol] 143 U/L 45-117 [facility] Work Phone: [phone] ALT [Catalytic activity/Vol] 49 U/L 13-56 [facility] Work Phone: [phone] CO2 [Moles/Vol] 25.0 mmol/L 21.0-32.0 [facility] Work Phone: [phone] Globulin (S) [Mass/Vol] 4.9 g/dL 2.2-4.2 [facility] Work Phone: Lipase [Catalytic activity/Vol] 260 U/L 73-393 [facility] Work Phone: [phone] Urea nitrogen/Creatinine [Mass ratio] 12.9 mg/mg 10-20 [facility] Work Phone: [phone] Laboratory - Coagulationon 0 07-03-2021 PT Coag (PPP) [Time] 35.3 s 11.7-14.9 [facility] Work Phone: Laboratory - Hematology and Cell countson 07-03-2021 Erythrocyte distribution width (RBC) [Entitic vol] 54.8 fL 35.1-43.9 [facility] Work Phone: Erythrocyte distribution width (RBC) [Ratio] 15.9 % 11.6-14.6 [facility] Work Phone: Immature granulocytes/100 WBC (Bld) 0.500 % 0.0-0.9 [facility] Work Phone: Comment on above: IG% - Immature Granu locytes (promyelocytes, myelocytes and metamyelocytes) > 1% indicates that a LEFT SHIFT is Present. MCH (RBC) [Entitic mass] 30.0 pg 27.0-32.0 [facility] Work Phone: Nucleated RBC/100 WBC (Bld) [Ratio] 0 % 0-5 [facility] Work Phone: MCHC Auto (RBC) [Mass/Vol]on 07-03-2021 MCHC (RBC) [Mass/Vol] 31.8 g/dL 32-36 [facility] Work Phone: Mucus LM Ql (Urine sed)on Mucus Ql (Urine sed) 0 SEEN /hpf [facility] Work Phone: Nitrite Test strip Ql (U)on 07-03-2021 Nitrite Ql (U) Negative Negative [facility] Work Phone: No Panel Informationon 07-03 Estimated Creatinine Clearance Calc 46.12 ml/min [facility] Work Phone: Estimated GFR (MDRD) Amer 81 mL/min >60 [facility] Work Phone: Comment on above: GFR Calc Estimated GFR (MDRD) Non-Af Amer 67 mL/min >60 [facility] Work Phone: Comment on above: Non- GFR Calc Platelets bldon 07-03-2021 Platelets (Bld) [#/Vol] 160 10*3/uL 150-450 [facility] Work Phone: Protein Test strip Ql (U)on 07-03-2021 Protein Ql (U) 15 mg/dl Negative [facility] Work Phone: Serum or plasma albumin yonatan urement (mass/volume)on 07-03-2021 Albumin [Mass/Vol] 2.6 g/dL 3.2-5.0 [facility] Work Phone: Serum or plasma calcium yonatan urement (mass/volume)on 07-03-2021 Calcium [Mass/Vol] 8.7 mg/dL 8.5-10.1 [facility] Work Phone: Serum or plasma creatinine m easurement (mass/volume)on 07-03-2021 Creatinine [Mass/Vol] 0.85 mg/dL 0.55-1.02 [facility] Work Phone: Comment on above: The validity of the calculated GFR & GFRAA in patients over 70 years has not been determined. Clinical correlation is essential. Serum or plasma urea nitroge n measurement (mass/volume)on 07-03-2021 Urea nitrogen [Mass/Vol] 11 mg/dL 7-18 [facility] Work Phone: Squamous epithelial cells de tection in urine sediment by light microscopyon 07-03-2021 Epithelial cells.squamous LM Ql (Urine sed) 0 SEEN /hpf 5-10 [facility] Work Phone: Thin prep Papanicolaou smear with manual screeningon 07-03-2021 Thin prep Papanicolaou smear with manual screening 87 U/L 15-37 [facility] Work Phone: Thin prep Papanicolaou smear with manual screening 6 5-15 [facility] Work Phone: Urine blood detectionon 06-15 RBC Ql (U) 10 /ul Negative [facility] Work Phone: RBC Ql (U) 0-5 SEEN /hpf 0-5 [facility] Work Phone: Urine clarityon 07-03-2021 Clarity (U) Clear Clear [facility] Work Phone: Urine color determinationon 07-03-2021 Color (U) Yellow Yellow [facility] Work Phone: Urine glucose detectionon Glucose Ql (U) Normal mg/dl Normal [facility] Work Phone: Urine leukocyte esterase det ection by dipstickon 07-03-2021 Leukocyte esterase Test strip Ql (U) 500 /ul Negative [facility] Work Phone: Urine pHon 07-03-2021 pH (U) 7.0 [pH] 5.0 - 8.0 [facility] Work Phone: Urine sediment bacteria coun t by microscopy (number/high power field)on 07-03-2021 Bacteria LM.HPF (Urine sed) [#/Area] 2 /[HPF] None Seen [facility] Work Phone: Urine specific gravity measu rementon 07-03-2021 Specific gravity (U) [Rel density] 1.010 1.002-1.030 [facility] Work Phone: Urobilinogen Auto test strip Ql (U)on 07-03-2021 Urobilinogen Ql (U) 1 mg/dl Normal [facility] Work Phone: XR Chest PA and Lateralon IMPRESSION: Mild bibasilar atelectasis. Subtle infection could appear similar but is thought less likely. Glue Maker: [email or web address] Transcribe Date/Time: May 17 2021 6:05P Dictated by : SHAN KAY MD This examination was interpreted and the report reviewed and electronically signed by: SHAN KAY MD on May 17 2021 6:07PM [facility] DIVISION OF RADIOLOGY * * *Final [...] osseous abnormality. DIVISION OF RADIOLOGY Provider, Sj [facility] - 05/17/2021 * * *Final Report* * [...] appear similar but is thought less likely. Glue Maker: [employer] Transcribe Date/Time: May 17 2021 6:05P Dictated by : SHAN KAY MD This examination was interpreted and the report reviewed and electronically signed by: SHAN KAY MD on May 17 2021 6:07PM EST [facility] Radiology Study observation (narrative) [facility] XR Chest PA and LateralOrder ed By: Ccf Provider on 05-17-[address] [facility] Basic Metabolic Panlon 01-14 Anion gap [Moles/Vol] 7 mmol/L Low 9-18 [facility] Comment on above: Performed By: #### M G1, BMP, CBC ####[facility] [address] [place], [place] [phone] Calcium [Mass/Vol] 8.5 mg/dL Normal 8.5-10.2 [facility] Comment on above: Performed By: #### M G1, BMP, CBC ####[facility] [address] [place] [address] Chloride [Moles/Vol] 110 mmol/L High 97-105 [facility] Comment on above: Performed By: #### M G1, BMP, CBC ####[facility] [address] [place] [phone] CO2 [Moles/Vol] 23 mmol/L Normal 22-30 [facility] Comment on above: Performed By: #### M G1, BMP, CBC ####[facility] [address] [place] [address] Creatinine [Mass/Vol] 0.85 mg/dL Normal 0.58-0.96 [facility] Comment on above: Performed By: #### M G1, BMP, CBC ####[facility] [address] [place] [address] eGFR- Amer. >60 Normal [facility] Comment on above: Performed By: #### M , BMP, CBC ####[facility] [address] [place] [address] eGFR-All Other Races >60 Normal [facility] Comment on above: Result Comment: eGFR [...] Performed By: #### M G1, BMP, CBC ####[facility] [address] [place] [phone] Glucose [Mass/Vol] 94 mg/dL Normal 74-99 [facility] Comment on above: Result Comment: The [place] [employer] (ADA) provides guidance for [...] Standards of Medical Care in Diabetes 2016, [place] [employer]. Diabetes Care. 2016.39(Suppl 1). Performed By: #### M STEPHAN Prabhakar, CBC ####[place] [address] Potassium [Moles/Vol] 3.8 mmol/L Normal 3.7-5.1 [facility] Comment on above: Performed By: #### M STEPHAN Prabhakar, CBC ####[place] [address] Sodium [Moles/Vol] 140 mmol/L Normal 136-144 [facility] Comment on above: Performed By: #### M STEPHAN Prabhakar, CBC ####[place] [address] Urea nitrogen [Mass/Vol] 10 mg/dL Normal 7-21 [facility] Comment on above: Performed By: #### M STEPHAN, CBC ####[place] [address] CBCon 01-14-2021 Absolute nRBC <0.01 Normal <0.01 [facility] Comment on above: Performed By: #### M STEPHAN, CBC ####[place] [address] Erythrocyte distribution width (RBC) [Ratio] 16.5 % High 11.5-15.0 [facility] Comment on above: Performed By: #### M STEPHAN Prabhakar, CBC ####[place] [address] Hematocrit (Bld) [Volume fraction] 25.5 % Low 36.0-46.0 [facility] Comment on above: Performed By: #### M STEPHAN Prabhakar, CBC ####[place] [address] Hemoglobin (Bld) [Mass/Vol] 8.4 g/dL Low 11.5-15.5 [facility] Comment on above: Performed By: #### M Vanna, BMP, CBC ####[facility] [address] [place] [address] MCH 34.7 pG High 26.0-34.0 [facility] Comment on above: Performed By: #### M Vanna, BMP, CBC ####[facility] [address] [place] [address] MCHC (RBC) [Mass/Vol] 32.9 g/dL Normal 30.5-36.0 [facility] Comment on above: Performed By: #### M Vanna, BMP, CBC ####[facility] [address] [place] [address] MCV (RBC) [Entitic vol] 105.4 fL High 80.0-100.0 [facility] Comment on above: Performed By: #### M Vanna, BMP, CBC ####[facility] [address] [place] [address] Platelet mean volume (Bld) [Entitic vol] 9.8 fL Normal 9.0-12.7 [facility] Comment on above: Performed By: #### M Vanna, BMP, CBC ####[facility] [address] [place] [address] Platelets (Bld) [#/Vol] 109 10*3/uL Low 150-400 [facility] Comment on above: Performed By: #### M Vanna, BMP, CBC ####[facility] [address] [place] [address] RBC (Bld) [#/Vol] 2.42 10*6/uL Low 3.90-5.20 [facility] Comment on above: Performed By: #### M Vanna, BMP, CBC ####[facility] [address] [place] [address] WBC (Bld) [#/Vol] 5.89 10*3/uL Normal 3.70-11.00 [facility] Comment on above: Performed By: #### M Vanna, BMP, CBC ####[facility] [address] [place] [address] CNDSon 01-14-2021 CNDS HNO ID: [id number] Author: Wendy Bonilla DO Service: Hospital Medicine [...] TEAMS DURING HOSPITALIZATION: Treatment Team: Attending Provider: eWndy Bonilla DO Consulting: Johnny Turk MD Primary Service: [place] [address] REASON FOR HOSPITALIZATION: Rectal Bleed DIAGNOSIS: Principal [...] were placed as previously ordered by her talent acquisition assistant to follow up on this and pending at time of discharge. She was provided with referral and number for [facility] and advised to call for an appointment. A Transvaginal ultrasound was obtained and confirmed endometrial thickening of 1.8cm This was reviewed and the patient will follow up with her COMMERCIAL LOAN OFFICER. She was discharged home in stable condition. [...] FOLLOW-UP: [facility], Follow up COMMERCIAL LOAN OFFICER for endometrial thickening. Follow up Dr. Turk [...] Resume pre-hospital ac (more content not included)... Normal [facility] Magnesiumon 01-14-2021 Magnesium [Mass/Vol] 2.0 mg/dL Normal 1.7-2.3 [facility] Comment on above: Performed By: #### M G1, BMP, CBC ####[facility] [address] [place] [phone] NURSING PROGon 01-14-2021 NURSING PROG HNO ID: [id number] Author: Albania Perez RN Service: ? Author Type: Registered Nurse Type: Nursing Progress Note Filed: 01/14/2021 5:01 PM Note Text: Nursing Progress Note Patient Name: Christian Landrum Patient Location: [place] [address] [address] Daily Note:1650-R chest [facility], [place] home instructions given-verbalized understanding. This note was completed by: Albania Perez [facility] ALLIED HEALTHon 01-13-2021 ALLIED HEALTH HNO ID: [id number] Author: Margy Walker RDMS Service: Radiology Author Type: Cnc Machinist Type: Allied Health Filed: 01/13/2021 3:05 PM [...] Walker RDMS January 13, 2021 3:05 PM [facility] Basic Metabolic Panlon 01-13 Anion gap [Moles/Vol] 8 mmol/L Low 9-18 [facility] Comment on above: Performed By: #### P T, BMP, CBC ####[facility] [address] [place] [address] Calcium [Mass/Vol] 8.2 mg/dL Low 8.5-10.2 [facility] Comment on above: Performed By: #### P T BMP, CBC ####[facility] [address] [place] [address] Chloride [Moles/Vol] 106 mmol/L High 97-105 [facility] Comment on above: Performed By: #### P T, BMP, CBC ####[facility] [address] [place] [address] CO2 [Moles/Vol] 20 mmol/L Low 22-30 [facility] Comment on above: Performed By: #### P T, BMP, CBC ####[facility] [address] [place] [address] Creatinine [Mass/Vol] 0.74 mg/dL Normal 0.58-0.96 [facility] Comment on above: Performed By: #### P T, BMP, CBC ####[facility] [address] [place] [address] eGFR- Amer. >60 [facility] Comment on above: Performed By: #### P T, BMP, CBC ####[facility] [address] [place] [address] eGFR-All Other Races >60 Normal [facility] Comment on above: Result Comment: eGFR [...] accurately reflect actual GFR. Performed By: #### P T BMP, CBC ####[facility] [address] [place] [address] Glucose [Mass/Vol] 179 mg/dL High 74-99 [facility] Comment on above: Result Comment: The [place] Diabetes [employer] (ADA) provides guidance for [...] Standards of Medical Care in Diabetes 2016, [place] [employer]. Diabetes Care. 2016.39(Suppl 1). Performed By: #### P TSTEPHAN, CBC ####[facility] [address] [place] [address] Potassium [Moles/Vol] 3.8 mmol/L Normal 3.7-5.1 [facility] Comment on above: Performed By: #### P T BMP, CBC ####[facility] [address] [place] [address] Sodium [Moles/Vol] 134 mmol/L Low 136-144 [facility] Comment on above: Performed By: #### P T, BMP, CBC ####[facility] [address] [place] [phone] Urea nitrogen [Mass/Vol] 15 mg/dL Normal 7-21 [facility] Comment on above: Performed By: #### P T, BMP, CBC ####[facility] [address] [place] [address] CBCon 01-13-2021 Absolute nRBC <0.01 Normal <0.01 [facility] Comment on above: Performed By: #### P T, BMP, CBC ####[facility] [address] [place] [address] Erythrocyte distribution width (RBC) [Ratio] 16.6 % High 11.5-15.0 [facility] Comment on above: Performed By: #### P T BMP, CBC ####[facility] [address] [place] [address] Hematocrit (Bld) [Volume fraction] 24.8 % Low 36.0-46.0 [facility] Comment on above: Performed By: #### P T, BMP, CBC ####[facility] [address] [place] [address] Hemoglobin (Bld) [Mass/Vol] 8.4 g/dL Low 11.5-15.5 [facility] Comment on above: Performed By: #### P T BMP, CBC ####[facility] [address] [place] [address] MCH 35.9 pG High 26.0-34.0 [facility] Comment on above: Performed By: #### P T, BMP, CBC ####[facility] [address] [place] [address] MCHC (RBC) [Mass/Vol] 33.9 g/dL Normal 30.5-36.0 [facility] Comment on above: Performed By: #### P T, BMP, CBC ####[facility] [address] [place] [address] MCV (RBC) [Entitic vol] 106.0 fL High 80.0-100.0 [facility] Comment on above: Performed By: #### P T, BMP, CBC ####[facility] [address] [place] [address] Platelet mean volume (Bld) [Entitic vol] 10.2 fL Normal 9.0-12.7 [facility] Comment on above: Performed By: #### P T, BMP, CBC ####[facility] [address] [place] [address] Platelets (Bld) [#/Vol] 104 10*3/uL Low 150-400 [facility] Comment on above: Performed By: #### P T, BMP, CBC ####[facility] [address] [place] [phone] RBC (Bld) [#/Vol] 2.34 10*6/uL Low 3.90-5.20 [facility] Comment on above: Performed By: #### P T, BMP, CBC ####[facility] [address] [place] [phone] WBC (Bld) [#/Vol] 6.11 10*3/uL Normal 3.70-11.00 [facility] Comment on above: Performed By: #### P T, BMP, CBC ####[facility] [address] [place] [phone] CONSULTon 01-13-2021 CONSULT HNO ID: [id number] Author: Johnny Turk MD Service: General Surgery [...] - Arthritis (more content not included)... Normal [facility] Hep B Core Ab, IgMon 021 Hep B Core Ab, IgM Negative Normal Negative [facility] Comment on above: Performed By: #### 5 7021-8 #### [facility] CLIA [id number] [address] Hep B Core Ab,Totalon 2020 Hep B Core Ab,Total Positive Critically abnormal Negative [facility] Comment on above: Result Comment: Resu lt rechecked. Performed By: #### 5 7021-8 #### [facility] CLIA [id number] [address] Hepat.B Vir Ult Qton 021 HBV DNA Ultra Not detected Normal [facility] Comment on above: Result Comment: Refe rence Range: Negative for HBVDNA The linear range of this assay is 10 to 1,000,000,000 IU/mL. Performed By: #### 5 7021-8 #### [facility] CLIA [id number] [address] Hepatitis Be Antibodon 01-13 Hepatitis Be Antibod Negative Normal Negative [facility] Comment on above: Result Comment: This test should only be used in patients with a previously known and/or concurrent positive HBsAg result. Along with HBeAg test, Hepatitis B e antibody test is used for monitoring the natural history of Hepatitis B virus infection and prognostication. Clinical correlation is required. Performed By: #### 5 7021-8 #### [facility] CLIA [id number] [address] [place] [address] [place] Hepatitis Be Antigenon 01-13 Hepatitis Be Antigen Negative Normal Negative [facility] Comment on above: Performed By: #### 5 7021-8 #### [facility] CLIA [id number] [address] [place] [address] [place] Protimeon 01-13-2021 PT INR 2.5 High 0.9-1.3 [facility] Comment on above: Result Comment: Maricruz min K Antagonist (VKA) Therapeutic Range: INR 2 to 3 (Target INR of 2.5) Note: For patients treated with VKA drugs, such as warfarin, the [employer] 2012 Guideline [...] GH, et al. Chest 2012, 141:7S-47S Geri RA, et al. [facility] 2017, 70: 252-289 Performed By: #### P T, BMP, CBC ####[facility] [address] [place] [phone] PT Sec 25.8 sec High 9.7-13.0 [facility] Comment on above: Performed By: #### P T, BMP, CBC ####[facility] [address] [place] [phone] FEMALE PELVIS TRANSABD LT Don 01-13-2021 FEMALE PELVIS TRANSABD LTD * * *Final Report* * * DATE OF EXAM: Jan 13 2021 3:06PM JAVON 1059 - US FEMALE PELVIS TRANSABD LTD [...] visualized transvaginally. Trace free fluid Unremarkable adnexa. Glue Maker: [facility] Transcribe Date/Time: Jan 13 2021 6:02P Dictated by : NATA HANEY MD This examination was interpreted and the report reviewed and electronically signed by: NATA HANEY MD on Jan 13 2021 6:07PM EST [id number] [facility] US FEMALE PELVIS TRANSVAGon 01-13-2021 US FEMALE PELVIS TRANSVAG * * *Final Report* * * DATE OF EXAM: Jan 13 2021 3:06PM U 1060 - US FEMALE PELVIS TRANSVAG / [...] visualized transvaginally. Trace free fluid Unremarkable adnexa. Glue Maker: [employer] Transcribe Date/Time: Jan 13 2021 6:02P Dictated by : NATA HANEY MD This examination was interpreted and the report reviewed and electronically signed by: NATA HANEY MD on Jan 13 2021 6:07PM EST [id number] Normal [facility] Urine Cultureon 01-13-2021 Bacteria identified Cx Nom (U) Sp. Request/Comment: - Specimen received in preservative Culture Result - <10,000 CFU/ml Lactose positive gram negative bacilli --> ABNORMAL ALERT Insignificant colony count. No further workup. --> ABNORMAL ALERT <10,000 CFU/ml Normal urogenital cy Critically abnormal [facility] Comment on above: Performed By: #### U RCUL ####[facility] [address] [place] [phone] [address] [place], [place] [phone] APTTon 01-12-2021 aPTT Coag (Bld) [Time] 112.0 s High 23.0-32.4 [facility] Comment on above: Result Comment: Unfr [...] laboratory APTT reagent in use throughout the [facility]. Sample checked for a clot. No call per procedure. 01/12/2021 1541 Performed By: #### C MP, CBCDIF, PTT, MG1, PT ####[place] [address] CBC and Differentialon 01-12 Abs Baso 0.05 k/uL Normal <0.11 [facility] Comment on above: Performed By: #### C MP, CBCDIF, PTT, MG1, PT ####[place] [address] Abs Seminole 0.86 k/uL Normal <0.87 [facility] Comment on above: Performed By: #### C MP, CBCDIF, PTT, MG1, PT ####[place] [address] Abs Neut 5.89 k/uL Normal 1.45-7.50 [facility] Comment on above: Performed By: #### C MP, CBCDIF, PTT, MG1, PT ####[place] [address] Absolute nRBC <0.01 Normal <0.01 [facility] Comment on above: Performed By: #### C MP, CBCDIF, PTT, MG1, PT ####[place] [address] Basophils/100 WBC (Bld) 0.6 % [facility] Comment on above: Performed By: #### C MP, CBCDIF, PTT, MG1, PT ####[place] [address] DTYPE Auto Diff Normal [facility] Comment on above: Performed By: #### C MP, CBCDIF, PTT, MG1, PT ####[place] [address] Eosinophils (Bld) [#/Vol] 0.09 10*3/uL Normal <0.46 [facility] Comment on above: Performed By: #### C MP, CBCDIF, PTT, MG1, PT ####[place] [address] Eosinophils/100 WBC (Bld) 1.0 % [facility] Comment on above: Performed By: #### C MP, CBCDIF, PTT, MG1, PT ####[facility] [address] [place] [address] Erythrocyte distribution width (RBC) [Ratio] 16.4 % High 11.5-15.0 [facility] Comment on above: Performed By: #### C MP, CBCDIF, PTT, MG1, PT ####[place] [address] Hematocrit (Bld) [Volume fraction] 27.4 % Low 36.0-46.0 [facility] Comment on above: Performed By: #### C MP, CBCDIF, PTT, MG1, PT ####[place] [address] Hemoglobin (Bld) [Mass/Vol] 9.2 g/dL Low 11.5-15.5 [facility] Comment on above: Performed By: #### C MP, CBCDIF, PTT, MG1, PT ####[place] [address] Lymphocytes (Bld) [#/Vol] 1.89 10*3/uL Normal 1.00-4.00 [facility] Comment on above: Performed By: #### C MP, CBCDIF, PTT, MG1, PT ####[place] [address] Lymphocytes/100 WBC (Bld) 21.5 % Normal [facility] Comment on above: Performed By: #### C MP, CBCDIF, PTT, MG1, PT ####[place] [address] MCH 35.1 pG High 26.0-34.0 [facility] Comment on above: Performed By: #### C MP, CBCDIF, PTT, MG1, PT ####[place] [address] MCHC (RBC) [Mass/Vol] 33.6 g/dL Normal 30.5-36.0 [facility] Comment on above: Performed By: #### C MP, CBCDIF, PTT, MG1, PT ####[facility] [address] [place] [address] MCV (RBC) [Entitic vol] 104.6 fL High 80.0-100.0 [facility] Comment on above: Performed By: #### C MP, CBCDIF, PTT, MG1, PT ####[facility] [address] [place] [address] Monocytes/100 WBC (Bld) 9.8 % Normal [facility] Comment on above: Performed By: #### C MP, CBCDIF, PTT, MG1, PT ####[facility] Q[address]1593 [place] [address] Neutrophils/100 WBC (Bld) 67.1 % Normal [facility] Comment on above: Performed By: #### C MP, CBCDIF, PTT, MG1, PT ####[facility] [address] [place] [address] NRBCs 0.0 /100 WBC Normal 0 [facility] Comment on above: Performed By: #### C MP, CBCDIF, PTT, MG1, PT ####[facility] [address] [place] [address] Platelet mean volume (Bld) [Entitic vol] 10.6 fL Normal 9.0-12.7 [facility] Comment on above: Performed By: #### C MP, CBCDIF, PTT, MG1, PT ####[facility] [address]86 [place] [address] Platelets (Bld) [#/Vol] 126 10*3/uL Low 150-400 [facility] Comment on above: Result Comment: No c lot detected. Performed By: #### C MP, CBCDIF, PTT, MG1, PT ####[facility] [address] [place] [address] RBC (Bld) [#/Vol] 2.62 10*6/uL Low 3.90-5.20 [facility] Comment on above: Performed By: #### C MP, CBCDIF, PTT, MG1, PT ####[facility] V[address] [place] [address] WBC (Bld) [#/Vol] 8.78 10*3/uL Normal 3.70-11.00 [facility] Comment on above: Performed By: #### C MP, CBCDIF, PTT, MG1, PT ####[facility] [address] [place], [place] [phone] CT ABD/PEL W IVCONon 021 CT ABD/PEL W IVCON * * *Final Report* * * DATE OF EXAM: Jan 12 2021 4:21PM [facility] 0530 - CT ABD/PEL W IVCON / [...] and/or stent in the RIGHT coronary circulation. Pattern Cutter (topogram) images: No additional findings. IMPRESSION: Acute cystitis. Cirrhotic liver morphology. Cholelithiasis. Abnormal endometrial thickening to 12 mm in this postmenopausal female. Recommend further evaluation with a female pelvic ultrasound on a nonemergent basis. Acuity: Actionable Findings: Female reproductive tract (pelvis, adnexa) Routing code: WH_1 Recommendation: US FEMALE PELVIS NON-OB NON TORSION ([id number]) Time Frame: at the discretion of the clinical team. Glue Maker: GRANT Transcribe Date/Time: Jan 12 2021 4:44P Dictated by : VANESA PRICE DO This examination was interpreted and the report reviewed and electronically signed by: VANESA PRICE DO on Jan 12 2021 5:01PM EST [id number] Normal [facility] Comp Metabolic Panelon 01-12 Albumin [Mass/Vol] 3.4 g/dL Low 3.9-4.9 [facility] Comment on above: Performed By: #### C MP, CBCDIF, PTT, MG1, PT ####[facility] Ksq[address]93 [address] ALP [Catalytic activity/Vol] 52 U/L Normal 34-123 [facility] Comment on above: Performed By: #### C MP, CBCDIF, PTT, MG1, PT ####[facility] [address] [place] [phone] ALT [Catalytic activity/Vol] 25 U/L Normal 7-38 [facility] Comment on above: Performed By: #### C MP, CBCDIF, PTT, MG1, PT ####[facility] [address] [place] [phone] Anion gap [Moles/Vol] 12 mmol/L Normal 9-18 [facility] Comment on above: Performed By: #### C MP, CBCDIF, PTT, MG1, PT ####[facility] [address] [place] [address] AST [Catalytic activity/Vol] 59 U/L High 13-35 [facility] Comment on above: Performed By: #### C MP, CBCDIF, PTT, MG1, PT ####[facility] [address]wc7[address] [place] [address] Bilirubin [Mass/Vol] 1.0 mg/dL Normal 0.2-1.3 [facility] Comment on above: Performed By: #### C MP, CBCDIF, PTT, MG1, PT ####[facility] [address]38 [place] [address] Calcium [Mass/Vol] 8.9 mg/dL Normal 8.5-10.2 [facility] Comment on above: Performed By: #### C MP, CBCDIF, PTT, MG1, PT ####[facility] [address] [place] [address] Chloride [Moles/Vol] 107 mmol/L High 97-105 [facility] Comment on above: Performed By: #### C MP, CBCDIF, PTT, MG1, PT ####[facility] Ax[address]b6553 [place] [address] CO2 [Moles/Vol] 21 mmol/L Low 22-30 [facility] Comment on above: Performed By: #### C MP, CBCDIF, PTT, MG1, PT ####[facility] T[address] [place] [address] Creatinine [Mass/Vol] 0.67 mg/dL Normal 0.58-0.96 [facility] Comment on above: Performed By: #### C MP, CBCDIF, PTT, MG1, PT ####[facility] Hz[address]fuk0625 [place] [address] eGFR- Amer. >60 Normal [facility] Comment on above: Performed By: #### C MP, CBCDIF, PTT, MG1, PT ####[facility] Ebpmtamskp7104 [place] [address] eGFR-All Other Races >60 Normal [facility] Comment on above: Result Comment: eGFR [...] #### C MP, CBCDIF, PTT, MG1, PT ####[facility] T[address]rep[address]6560 [place] [phone] Glucose [Mass/Vol] 92 mg/dL Normal 74-99 [facility] Comment on above: Result Comment: The [place] [employer] (ADA) provides guidance for [...] Standards of Medical Care in Diabetes 2016, [place] [employer]. Diabetes Care. 2016.39(Suppl 1). Performed By: #### C MP, CBCDIF, PTT, MG1, PT ####[facility] [address] [place] [phone] Potassium [Moles/Vol] 3.8 mmol/L Normal 3.7-5.1 [facility] Comment on above: Performed By: #### C MP, CBCDIF, PTT, MG1, PT ####[facility] Gzprpfzixs9017 [phone] Protein [Mass/Vol] 6.0 g/dL Low 6.3-8.0 [facility] Comment on above: Performed By: #### C MP, CBCDIF, PTT, MG1, PT ####[facility] Xax[address]yujp9352 [phone] Sodium [Moles/Vol] 140 mmol/L Normal 136-144 [facility] Comment on above: Performed By: #### C MP, CBCDIF, PTT, MG1, PT ####[facility] Ysrfpeqvfn7622 [phone] Urea nitrogen [Mass/Vol] 19 mg/dL Normal 10-04 [facility] Comment on above: Performed By: #### C MP, CBCDIF, PTT, MG1, PT ####[facility] Sqvwzgncot8685 [phone] Confirm Blood Typeon 021 ABO/RH(D) Positive [facility] Comment on above: Performed By: #### 5 7021-8 #### [facility] CLIA [id number] [address] ED NOTEon 01-12-2021 ED NOTE HNO ID: [id number] Author: Anusha Pabon RN Service: ? Author Type: Registered Nurse Type: ED Notes Filed: 01/12/2021 5:50 PM Note Text: Report called to Marbella bruno. [facility] ED NOTE HNO ID: [id number] Author: Anusha Pabon RN Service: ? Author Type: Registered Nurse Type: ED Notes Filed: 01/12/2021 5:38 PM Note Text: 10 min heads up given [facility] ED NOTE HNO ID: [id number] Author: Miguel Angel Sams Service: ? Author Type: Biological Lab Technician and Acid Regenerator Type: ED Notes Filed: 01/12/2021 12:05 PM Note Text: Complains of black stools since Friday S/P colonoscopy this past Friday. [facility] ED PROV NOTEon 01-12-2021 ED PROV NOTE HNO ID: [id number] Author: Juan Covarrubias MD Service: ? Author Type: Physician Type: ED Provider Notes Filed: 01/12/2021 2:49 PM Note Text: ED Provider Note Patient Name: Christian Landrum SERVICE DATE: 01/12/21 History Patient presents with: Rectal Bleeding UTI HPI Ms. 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 Normal [facility] Expedited [id number] 01-13-20 21 SARS-CoV-2 (COVID-19) RNA DEMARCUS+probe Ql (Unsp spec) UPPER RESPIRATORY TRACT SWAB Normal [facility] Comment on above: Performed By: #### E XCOVD #### [facility] [address] [facility] [phone] SARS-CoV-2 (COVID-19) RNA DEMARCUS+probe Ql (Unsp spec) Negative for COVID19 (SARS CoV2) by RT-PCR or equivalent method. Normal Negative for COVID19 (SARS CoV2) by RT-PCR or equivalent method. [facility] Comment on above: Result Comment: This test has been authorized by FDA under an Emergency Use Authorization (EUA). Performed By: #### E XCOVD #### [facility] [address] [facility] [phone] HISTORY PHYSICALon HISTORY PHYSICAL HNO ID: [id number] Author: Selma Shepherd DO Service: Hospital Medicine Author Type: Physician Type: HANDP Filed: 01/12/2021 8:56 PM Note Text: HOSPITAL MEDICINE HISTORY AND PHYSICAL PCP: Galina Iraheta MD NIGHT AND WEEKEND COVERAGE: [facility]: Days: [phone], please page attending physician. Nights: [phone], please page [place] [facility] Night coverage pager [phone]. SUBJECTIVE Chief Complaint: Rectal bleeding HPI: Ms. [...] 11/03/2014 Colonoscopy - COLONOSCOP W/ OR W/O 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 Normal [facility] Magnesiumon 01-12-2021 Magnesium [Mass/Vol] 2.0 mg/dL Normal 1.7-2.3 [facility] Comment on above: Performed By: #### C MP, CBCDIF, PTT, MG1, PT ####[facility] Rbiwvxwmnb4480 [phone] NT Pro BNPon 01-12-2021 PRO B Natr Peptide 116 pg/mL Normal <450 [facility] Comment on above: Performed By: #### N TBNP ####[facility] Wuxkusksmw5572 [phone] NURSING PROGon 01-12-2021 NURSING PROG HNO ID: [id number] Author: Albania Perez RN Service: ? Author Type: Registered Nurse Type: Nursing Progress Note Filed: 01/12/2021 6:33 PM Note Text: Nursing Progress Note Patient Name: Christian Landrum Patient Location: [id number] Daily Note:1830-received pt from ED,no acute distress noted,on RA,oriented to the room,call light within reach. This note was completed by: Albania Perez [facility] Protimeon 01-12-2021 PT INR 2.9 High 0.9-1.3 [facility] Comment on above: Result Comment: Maricruz min K Antagonist (VKA) Therapeutic Range: INR 2 to 3 (Target INR of 2.5) Note: For patients treated with VKA drugs, such as warfarin, the [place] [employer] 2012 Guideline [...] GH, et al. Chest 2012, 141:7S-47S Geri RA, et al. [facility] 2017, 70: 252-289 Performed By: #### C MP, CBCDIF, PTT, MG1, PT ####[place] [phone] PT Sec 28.7 sec High 9.7-13.0 [facility] Comment on above: Performed By: #### C MP, CBCDIF, PTT, MG1, PT ####[facility] [address] [place] [address] Troponin Ton 01-12-2021 Troponin T <0.010 Normal 0.000-0.029 [facility] Comment on above: Performed By: #### T NT ####[facility] C[address]vczt7315 [place] [address] Type and Screenon 01-12-2021 ABO/RH(D) Positive Normal [facility] Comment on above: Performed By: #### 5 7021-8 #### [facility] CLIA [id number] [address] [place] [address] [facility] Urinalysison 01-12-2021 Bilirubin, Urine Negative Normal Negative [facility] Comment on above: Performed By: #### U A, UAMIC ####[place] [address] Clarity (U) Clear Normal Clear [facility] Comment on above: Performed By: #### U A, UAMIC ####[facility] [address] [place] [address] Color (U) Yellow Normal Yellow [facility] Comment on above: Performed By: #### U A, UAMIC ####[facility] [address] [place] [address] Glucose Ql (U) Negative Normal Negative [facility] Comment on above: Performed By: #### U A, UAMIC ####[facility] [address] [place] [address] Hemoglobin/Blood,Ur 2+ Critically abnormal Negative [facility] Comment on above: Performed By: #### U A, UAMIC ####[facility] [address] [place] [address] Ketones Ql (U) Negative Normal Negative [facility] Comment on above: Performed By: #### U A, UAMIC ####[facility] [address] [place] [address] Leukest 2+ Critically abnormal Negative [facility] Comment on above: Performed By: #### U A, UAMIC ####[facility] [address] [place] [address] Nitrite Ql (U) Negative Normal Negative [facility] Comment on above: Performed By: #### U A UAMIC ####[facility] Lxhgdwdoos9157 [place] [address] pH (U) 6.5 [pH] Normal 5.0-8.0 [facility] Comment on above: Performed By: #### U A UAMIC ####[facility] Qmipihoeub0828 [place] [address] Protein, Urine Negative Normal Negative [facility] Comment on above: Performed By: #### U Tasia UAMIC ####[facility] [address] [place] [address] Specific [place], Ur 1.010 Normal 1.005-1.030 [facility] Comment on above: Performed By: #### Darek Dozier UAMIC ####[facility] [address] [place] [address] Urobilinogen Qn (U) 0.2 {Valentín'U}/dL Normal 0.2-1.0 [facility] Comment on above: Performed By: #### Darek Dozier UAJEMAL ####[facility] [address] [place] [address] Urine Microscopic (FOR LAB U SE ONLY)on 01-12-2021 Cast SEE COMMENT Normal 0 [facility] Comment on above: Result Comment: 0 Performed By: #### Darek Dozier UAMIC ####[facility] [address] [place] [address] Epithelial cells LM Ql (Urine sed) SEE COMMENT Normal [facility] Comment on above: Result Comment: 0-5 Squamous Epithelial Cells Performed By: #### U A UAMIC ####[facility] Ivf[address]om[address]36 [place] [address] RBC 5-10 Critically abnormal 0-3 [facility] Comment on above: Performed By: #### U A UAMIC ####[facility] [address] [place] [address] WBC 5-10 Critically abnormal 0-5 [facility] Comment on above: Performed By: #### U A UAMIC ####[facility] [address] [place] [address] NM CARDIAC PERF STRESS/PHARM on 01-10-2021 NM CARDIAC PERF STRESS/PHARM * * *Final Report* * * DATE OF EXAM: Jan 10 2021 11:30AM HEATHER 0006 - NM CARDIAC PERF STRESS/PHARM / PROCEDURE REASON: multiple diagnoses * * * * Physician Interpretation * * * * Stress Manager Enterprise Content Management Report: [facility] Date of service: 01/10/2021 9:33:53 AM [...] 60 minutes later. See administered doses below. [facility] Date of service: 01/10/2021 9:33:53 AM [...] unchanged with stress. Final Stress ECG Report: [facility] Date of service: 01/10/2021 9:33:53 AM Ordering physician: CECILIO IBARRA Specialist: Vira Odonnell Bag Loader Machine Operator: Lisa Lemus Stress ECG interpreting physician: [...] 125/48 mmHg. The double product achieved was [address]. Indication: Dyspnea on exertion Medical History and [...] 52 +----+--+---+---+ +-----+ (more content not included)... [facility] 01-09-2021 [facility] Telephone (CDLBME) CHRISTIAN LANDRUM ([id number]) 1935 F Date Time Provider Department 01/09/21 [...] Fully Assessed Reason for Visit: Reminder Call [2426] Prescriptions as of 01/09/2021 - omeprazole (PRILOSEC) [...] every Tue; 1 mg all other days - estradiol [...] BY MOUTH EVERY DAY - glucosamine/msm/chondroitin A (WLSJAFKNFFH-JXLLRB-JGT ORAL) Take 1 capsule by mouth once [...] mg injection (BENADRYL) - benzocaine 20% 1 [place] (TOPEX) Meds Comments as of 12/27/2016: Problem List As Of Date 01/09 (more content not included)... Normal [facility] XR Chest PA and Lateralon IMPRESSION: Mild bibasilar atelectasis/scarring. Glue Maker: GRANT Transcribe Date/Time: Nov 27 2020 4:34P Dictated by : DUC ZHONG MD This examination was interpreted and the report reviewed and electronically signed by: DUC ZHONG MD on Nov 27 2020 4:35PM [facility] DIVISION OF RADIOLOGY * * *Final [...] the thoracic spine. DIVISION OF RADIOLOGY Provider, Maira Fatou [facility] - 11/27/2020 * * *Final Report* * [...] thoracic spine. IMPRESSION IMPRESSION: Mild bibasilar atelectasis/scarring. Glue Maker: GRANT Transcribe Date/Time: Nov 27 2020 4:34P Dictated by : DUC ZHONG MD This examination was interpreted and the report reviewed and electronically signed by: DUC ZHONG MD on Nov 27 2020 4:35PM [facility] Radiology Study observation (narrative) [facility] XR Chest PA and LateralOrder ed By: Ccf Provider on 11-27-[address] [facility] XR Chest PA and Lateralon IMPRESSION: No acute radiographic abnormality. Glue Maker: GRANT Transcribe Date/Time: May 05 2020 3:09P Dictated by : ALEJO GORDON MD This examination was interpreted and the report reviewed and electronically signed by: ALEJO GORDON MD on May 05 2020 3:20PM [facility] DIVISION OF RADIOLOGY * * *Final [...] tissues: Unremarkable. DIVISION OF RADIOLOGY Provider, Sj Colindres - 05/05/2020 * * *Final Report* * [...] Unremarkable. IMPRESSION IMPRESSION: No acute radiographic abnormality. Glue Maker: PSCB Transcribe Date/Time: May 05 2020 3:09P Dictated by : ALEJO GORDON MD This examination was interpreted and the report reviewed and electronically signed by: ALEJO GORDON MD on May 05 2020 3:20PM EST [facility] Radiology Study observation (narrative) [facility] XR Chest PA and LateralOrder ed By: Ccf Provider on 05-05-[address] [facility] BD DXA - AXIAL SKELETONon BD DXA - AXIAL SKELETON Final Report DATE OF EXAM: Oct 20 2019 11:23AM LDX 0804 - BD DXA - AXIAL SKELETON / PROCEDURE REASON: multiple diagnoses Physician Interpretation EXAM TITLE: BONE MINERAL DENSITOMETRY COMPARISON:None CLINICAL INDICATION/HISTORY: Postmenopausal TECHNIQUE: DXA 100Plus[employer] v,11.4 examination was performed on the lumbar [...] at high risk for accelerated bone loss). Glue Maker: GRANT Transcribe Date/Time: Oct 21 2019 11:35A Dictated by : IVORY BENAVIDES MD This examination was interpreted and the report reviewed and electronically signed by: IVORY BENAVIDES MD on Oct 21 2019 11:36AM EST Normal [facility] Culture, urine Bacteria identified Cx Nom (U) Culture exhibits no growth. [facility] Work Phone: No Panel Information [facility] Vital Signs Date Time Vital Sign Value Performing Clinician Facility 09-07-2024 15:01-0400 Body temperature 97.4 [degF] Dr. Galina Iraheta MD Work Phone: [facility] 09-07-2024 15:01-0400 Diastolic blood pressure 75 mm[Hg] Dr. Galina Iraheta MD Work Phone: [facility] 09-07-2024 15:01-0400 Heart rate 71 /min Dr. Galina Iraheta MD Work Phone: [phone] [place] [address] 09-07-2024 15:01-0400 Respiratory rate 18 /min Dr. Galina Iraheta MD Work Phone: 7(375)[phone] [place] [address] 09-07-2024 15:01-0400 SaO2% (BldA) [Mass fraction] 95 % Dr. Galina Iraheta MD Work Phone: 6(114)[phone] [place] [address] 09-07-2024 15:01-0400 Systolic blood pressure 164 mm[Hg] Dr. Galina Iraheta MD Work Phone: 2(529)[phone] [place] [address] 09-03-2024 14:12-0400 Body height 165.[address] Galina Iraheta MD Work Phone: 2(869)115-303505 [place] [address] 08-18-2024 14:34-0400 Body height 165.[address] Galina Iraheta MD Work Phone: 7(178)[phone] [place] [address] 08-18-2024 14:34-0400 Body mass index (BMI) [Ratio] 29.1 kg/m2 Dr. Galina Iraheta MD Work Phone: 8(460)199-620705 [place] [address] 08-18-2024 14:34-0400 Body weight 79.[address] Galina Iraheta MD Work Phone: 1(432)[phone] [place] [address] 08-13-2024 13:10-0400 Body height 165.[address] Galina Iraheta MD Work Phone: [phone] [place] [address] 03-12-2024 14:00-0500 Body temperature 98.91 [degF] Treatment Wstr Work Phone: [phone])[phone] [place] [address] 03-12-2024 14:00-0500 Diastolic blood pressure 73 mm[Hg] Treatment Wstr Work Phone: 3(207)[phone] [place] [address] 03-12-2024 14:00-0500 Heart rate 68 /min Treatment Wstr Work Phone: 3(171)[phone] [place] [address] 03-12-2024 14:00-0500 Systolic blood pressure 135 mm[Hg] Treatment Wstr Work Phone: 0(385)[phone] [place] [address] 02-27-2024 14:58-0500 Body mass index (BMI) [Ratio] 31.12 kg/m2 Treatment Wstr Work Phone: [facility] 02-27-2024 14:58-0500 Body temperature 98.6 [degF] Treatment Wstr Work Phone: [facility] 02-27-2024 14:58-0500 Body weight 84.82 kg Treatment Wstr Work Phone: [facility] 02-27-2024 14:58-0500 Diastolic blood pressure 78 mm[Hg] Treatment Wstr Work Phone: [facility] 02-27-2024 14:58-0500 Heart rate 84 /min Treatment Wstr Work Phone: [facility] 02-27-2024 14:58-0500 SaO2% (BldA) [Mass fraction] 97 % Treatment Wstr Work Phone: [facility] 02-27-2024 14:58-0500 Systolic blood pressure 132 mm[Hg] Treatment Wstr Work Phone: [facility] 02-24-2024 14:01-0500 Body mass index (BMI) [Ratio] 31.12 kg/m2 Anaheim Arreola DE [employer]ER.[employer]SULTING [employer] Work Phone: [facility] 02-24-2024 14:01-0500 Body temperature 98.49 [degF] Cassidy Arreola DE [employer]MENT W[employer]ER.CONSULTING ACTUARY Work Phone: [facility] 02-24-2024 14:01-0500 Body weight 84.82 kg Anaheim Arreola DE [employer].CONSULTING ACTUARY Work Phone: [facility] 02-24-2024 14:01-0500 Diastolic blood pressure 73 mm[Hg] Cassidy Arreola DE [employer].CONSULTING ACTUARY Work Phone: [facility] 02-24-2024 14:01-0500 Heart rate 87 /min Cassidy Arreola [employer].CONSULTING ACTUARY Work Phone: [facility] 02-24-2024 14:01-0500 SaO2% (BldA) [Mass fraction] 97 % Cassidy Arreola [employer].CONSULTING ACTUARY Work Phone: [facility] 02-24-2024 14:01-0500 Systolic blood pressure 125 mm[Hg] Cassidy Arreola APRN.CONSULTING ACTUARY Work Phone: [facility] 02-24-2024 13:20-0500 Body mass index (BMI) [Ratio] 31.12 kg/m2 Lab/Port Wstr Work Phone: [facility] 02-24-2024 13:20-0500 Body weight 84.82 kg Lab/Port Wstr Work Phone: [facility] 01-28-2024 11:06-0500 Body mass index (BMI) [Ratio] 30.41 kg/m2 Treatment Wstr Work Phone: [facility] 01-28-2024 11:06-0500 Body temperature 97.59 [degF] Treatment Wstr Work Phone: [facility] 01-28-2024 11:06-0500 Body weight 82.9 kg Treatment Wstr Work Phone: [facility] 01-28-2024 11:06-0500 Diastolic blood pressure 66 mm[Hg] Treatment Wstr Work Phone: [facility] 01-28-2024 11:06-0500 Heart rate 79 /min Treatment Wstr Work Phone: [facility] 01-28-2024 11:06-0500 Respiratory rate 18 /min Treatment Wstr Work Phone: [facility] 01-28-2024 11:06-0500 SaO2% (BldA) [Mass fraction] 96 % Treatment Wstr Work Phone: [facility] 01-28-2024 11:06-0500 Systolic blood pressure 124 mm[Hg] Treatment Wstr Work Phone: [facility] 12-11-2023 08:55-0400 Body temperature 98.01 [degF] Treatment Wstr Work Phone: [facility] 12-11-2023 08:55-0400 Diastolic blood pressure 68 mm[Hg] Treatment Wstr Work Phone: [facility] 12-11-2023 08:55-0400 Heart rate 78 /min Treatment Wstr Work Phone: [facility] 12-11-2023 08:55-0400 Respiratory rate 14 /min Treatment Wstr Work Phone: [facility] 12-11-2023 08:55-0400 SaO2% (BldA) [Mass fraction] 98 % Treatment Wstr Work Phone: [facility] 12-11-2023 08:55-0400 Systolic blood pressure 126 mm[Hg] Treatment Wstr Work Phone: [facility] 12-04-2023 08:11-0400 Body temperature 98.4 [degF] Treatment Wstr Work Phone: [facility] 12-04-2023 08:11-0400 Diastolic blood pressure 71 mm[Hg] Treatment Wstr Work Phone: [facility] 12-04-2023 08:11-0400 Heart rate 74 /min Treatment Wstr Work Phone: [facility] 12-04-2023 08:11-0400 Respiratory rate 16 /min Treatment Wstr Work Phone: [facility] 12-04-2023 08:11-0400 Systolic blood pressure 115 mm[Hg] Treatment Wstr Work Phone: [facility] 10-09-2023 10:49-0400 Body mass index (BMI) [Ratio] 30.35 kg/m2 Treatment Wstr Work Phone: [facility] 10-09-2023 10:49-0400 Body temperature 98.2 [degF] Treatment Wstr Work Phone: [facility] 10-09-2023 10:49-0400 Body weight 82.74 kg Treatment Wstr Work Phone: [facility] 10-09-2023 10:49-0400 Diastolic blood pressure 70 mm[Hg] Treatment Wstr Work Phone: [facility] 10-09-2023 10:49-0400 Heart rate 94 /min Treatment Wstr Work Phone: [facility] 10-09-2023 10:49-0400 Respiratory rate 16 /min Treatment Wstr Work Phone: [facility] 10-09-2023 10:49-0400 SaO2% (BldA) [Mass fraction] 97 % Treatment Wstr Work Phone: [facility] 10-09-2023 10:49-0400 Systolic blood pressure 142 mm[Hg] Treatment Wstr Work Phone: [facility] 09-12-2023 11:10-0400 Body temperature 97.81 [degF] Treatment Wstr Work Phone: [facility] 09-12-2023 11:10-0400 Diastolic blood pressure 61 mm[Hg] Treatment Wstr Work Phone: [facility] 09-12-2023 11:10-0400 Heart rate 90 /min Treatment Wstr Work Phone: [facility] 09-12-2023 11:10-0400 Respiratory rate 16 /min Treatment Wstr Work Phone: [facility] 09-12-2023 11:10-0400 Systolic blood pressure 136 mm[Hg] Treatment Wstr Work Phone: [facility] 08-28-2023 11:00-0400 Body temperature 98.8 [degF] Treatment Wstr Work Phone: [facility] 08-28-2023 11:00-0400 Diastolic blood pressure 56 mm[Hg] Treatment Wstr Work Phone: [facility] 08-28-2023 11:00-0400 Heart rate 86 /min Treatment Wstr Work Phone: [facility] 08-28-2023 11:00-0400 Systolic blood pressure 130 mm[Hg] Treatment Wstr Work Phone: [facility] 08-19-2023 11:01-0400 Body temperature 98.71 [degF] Anaheim Arreola [employer]SULTING ACTUARY Work Phone: [facility] 08-19-2023 11:01-0400 Diastolic blood pressure 66 mm[Hg] Cassidy Arreola DE [employer].CONSULTING ACTUARY Work Phone: [facility] 08-19-2023 11:01-0400 Heart rate 87 /min Cassidy Arreola DE [employer].CONSULTING ACTUARY Work Phone: [facility] 08-19-2023 11:01-0400 SaO2% (BldA) [Mass fraction] 97 % Cassidy Arreola [employer].CONSULTING ACTUARY Work Phone: [facility] 08-19-2023 11:01-0400 Systolic blood pressure 131 mm[Hg] Cassidy Arreola [employer].CONSULTING ACTUARY Work Phone: [facility] 07-15-2023 14:28-0400 Body height 165.1 cm Vikash Sylvetser [employer].CONSULTING ACTUARY Work Phone: [facility] 07-15-2023 14:28-0400 Body mass index (BMI) [Ratio] 29.79 kg/m2 Vikash Sylvester [employer].CONSULTING ACTUARY Work Phone: [facility] 07-15-2023 14:28-0400 Body weight 81.19 kg Vikash Sylvester [employer].CONSULTING ACTUARY Work Phone: [facility] 07-15-2023 14:28-0400 Diastolic blood pressure 84 mm[Hg] Vikash Sylvester [employer].CONSULTING ACTUARY Work Phone: [facility] 07-15-2023 14:28-0400 Systolic blood pressure 122 mm[Hg] Vikash Sylvester [employer].CONSULTING ACTUARY Work Phone: [facility] 07-04-2023 11:28-0400 Body weight 80.92 kg Thalia Monterroso MD Work Phone: [facility] 07-04-2023 11:28-0400 Diastolic blood pressure 65 mm[Hg] Thalia Monterroso MD Work Phone: [facility] 07-04-2023 11:28-0400 Heart rate 80 /min Thalia Monterroso MD Work Phone: [facility] 07-04-2023 11:28-0400 Systolic blood pressure 141 mm[Hg] Thalia Monterroso MD Work Phone: [facility] 06-16-2023 14:16-0400 Body weight 82.1 kg Cecilio Jamesalfitprecious DO Work Phone: [facility] 06-16-2023 14:16-0400 Diastolic blood pressure 68 mm[Hg] Cecilio Amalfitano DO Work Phone: [facility] 06-16-2023 14:16-0400 Heart rate 79 /min Cecilio Amalfitprecious DO Work Phone: [facility] 06-16-2023 14:16-0400 SaO2% (BldA) [Mass fraction] 96 % Cecilio Amalfitprecious DO Work Phone: [facility] 06-16-2023 14:16-0400 Systolic blood pressure 126 mm[Hg] Cecilio Amalfitprecious DO Work Phone: [facility] 04-07-2023 13:010500 Body height 165.[address] Galina Iraheta Work Phone: [facility] 02-11-2023 10:15-0500 Body temperature 97.9 [degF] Anaheim Arreola [employer].CONSULTING ACTUARY Work Phone: [facility] 02-11-2023 10:15-0500 Body weight 80.74 kg Cassidy Arreola [employer].CONSULTING ACTUARY Work Phone: [facility] 02-11-2023 10:15-0500 Diastolic blood pressure 70 mm[Hg] Cassidy Arreola [employer].CONSULTING ACTUARY Work Phone: [facility] 02-11-2023 10:15-0500 Heart rate 62 /min Anaheim Arreola [employer].CONSULTING ACTUARY Work Phone: [facility] 02-11-2023 10:15-0500 SaO2% (BldA) [Mass fraction] 99 % Cassidy Arreola [employer].CONSULTING ACTUARY Work Phone: [facility] 02-11-2023 10:15-0500 Systolic blood pressure 124 mm[Hg] Cassidy Arreola [employer].CONSULTING ACTUARY Work Phone: [facility] 12-13-2022 14:31-0400 Body height 167.6 cm Juliet Gaffney APRN.CONSULTING ACTUARY Work Phone: [facility] 12-13-2022 14:31-0400 Body weight 79.38 kg Juliet Gaffney APRN.CONSULTING ACTUARY Work Phone: [facility] 12-13-2022 14:31-0400 Diastolic blood pressure 60 mm[Hg] Juliet Gaffney APRN.CONSULTING ACTUARY Work Phone: [facility] 12-13-2022 14:31-0400 Heart rate 68 /min Juliet Gaffney APRN.CONSULTING ACTUARY Work Phone: [facility] 12-13-2022 14:31-0400 SaO2% (BldA) [Mass fraction] 97 % Juliet Gaffney APRN.CONSULTING ACTUARY Work Phone: [facility] 12-13-2022 14:31-0400 Systolic blood pressure 130 mm[Hg] Juliet Gaffney APRN.CONSULTING ACTUARY Work Phone: [facility] 09-05-2022 09:20-0400 Body height 167.6 cm Cecilio Ibarra DO Work Phone: [facility] 09-05-2022 09:20-0400 Body weight 78.02 kg Cecilio Ibarra DO Work Phone: [facility] 09-05-2022 09:20-0400 Diastolic blood pressure 64 mm[Hg] Cecilio Ibarra DO Work Phone: [facility] 09-05-2022 09:20-0400 Heart rate 69 /min Cecilio Ibarra DO Work Phone: [facility] 09-05-2022 09:20-0400 Systolic blood pressure 124 mm[Hg] Cecilio Ibarra DO Work Phone: [facility] 08-27-2022 11:27-0400 Body temperature 98.4 [degF] Anaheim Arreola [employer].CONSULTING ACTUARY Work Phone: [facility] 08-27-2022 11:27-0400 Body weight 76.66 kg Anaheim Arreola [employer].CONSULTING ACTUARY Work Phone: [facility] 08-27-2022 11:27-0400 Diastolic blood pressure 56 mm[Hg] Cassidy Arreola [employer].CONSULTING ACTUARY Work Phone: [facility] 08-27-2022 11:27-0400 Heart rate 73 /min Anaheim Arreola [employer].CONSULTING ACTUARY Work Phone: [facility] 08-27-2022 11:27-0400 SaO2% (BldA) [Mass fraction] 96 % Anaheim Arreola [employer].CONSULTING ACTUARY Work Phone: [facility] 08-27-2022 11:27-0400 Systolic blood pressure 116 mm[Hg] Anaheim Arreola [employer].CONSULTING ACTUARY Work Phone: [facility] 06-05-2022 11:03-0400 Body temperature 97.81 [degF] Anaheim Arreola [employer].CONSULTING ACTUARY Work Phone: [facility] 06-05-2022 11:03-0400 Body weight 77.34 kg Anaheim Arreola [employer].CONSULTING ACTUARY Work Phone: [facility] 06-05-2022 11:03-0400 Diastolic blood pressure 54 mm[Hg] Cassidy Arreola DE [employer].CONSULTING ACTUARY Work Phone: [facility] 06-05-2022 11:03-0400 Heart rate 74 /min Anaheim Arreola DE [employer].CONSULTING ACTUARY Work Phone: [facility] 06-05-2022 11:03-0400 SaO2% (BldA) [Mass fraction] 97 % Anaheim Arreola [employer].CONSULTING ACTUARY Work Phone: [facility] 06-05-2022 11:03-0400 Systolic blood pressure 116 mm[Hg] Cassidy Arreola [employer].CONSULTING ACTUARY Work Phone: [facility] 04-17-2022 09:47-0500 Body temperature 97.9 [degF] Treatment Wstr Work Phone: [facility] 04-17-2022 09:47-0500 Diastolic blood pressure 60 mm[Hg] Treatment Wstr Work Phone: [facility] 04-17-2022 09:47-0500 Heart rate 77 /min Treatment Wstr Work Phone: [facility] 04-17-2022 09:47-0500 SaO2% (BldA) [Mass fraction] 97 % Treatment Wstr Work Phone: [facility] 04-17-2022 09:47-0500 Systolic blood pressure 126 mm[Hg] Treatment Wstr Work Phone: [facility] 04-15-2022 14:39-0500 Body temperature 97.2 [degF] Treatment Wstr Work Phone: [facility] 04-15-2022 14:39-0500 Diastolic blood pressure 62 mm[Hg] Treatment Wstr Work Phone: [facility] 04-15-2022 14:39-0500 Heart rate 68 /min Treatment Wstr Work Phone: [facility] 04-15-2022 14:39-0500 Respiratory rate 16 /min Treatment Wstr Work Phone: [facility] 04-15-2022 14:39-0500 Systolic blood pressure 135 mm[Hg] Treatment Wstr Work Phone: [facility] 04-12-2022 13:55-0500 Body temperature 97.7 [degF] Treatment Wstr Work Phone: [facility] 04-12-2022 13:55-0500 Diastolic blood pressure 47 mm[Hg] Treatment Wstr Work Phone: [facility] 04-12-2022 13:55-0500 Heart rate 71 /min Treatment Wstr Work Phone: [facility] 04-12-2022 13:55-0500 Systolic blood pressure 119 mm[Hg] Treatment Wstr Work Phone: [facility] 04-10-2022 10:54-0500 Body temperature 97.3 [degF] Treatment Wstr Work Phone: [facility] 04-10-2022 10:54-0500 Diastolic blood pressure 54 mm[Hg] Treatment Wstr Work Phone: [facility] 04-10-2022 10:54-0500 Heart rate 78 /min Treatment Wstr Work Phone: [facility] 04-10-2022 10:54-0500 Systolic blood pressure 134 mm[Hg] Treatment Wstr Work Phone: [facility] 04-09-2022 14:29-0500 Body height 167.6 cm Taty Perez APRN.CONSULTING ACTUARY Work Phone: [facility] 04-09-2022 14:29-0500 Body weight 76.66 kg Taty Perez APRN.CONSULTING ACTUARY Work Phone: [facility] 04-09-2022 14:29-0500 Diastolic blood pressure 58 mm[Hg] Taty Perez APRN.CONSULTING ACTUARY Work Phone: [facility] 04-09-2022 14:29-0500 Heart rate 75 /min Taty Perez APRN.CONSULTING ACTUARY Work Phone: [facility] 04-09-2022 14:29-0500 SaO2% (BldA) [Mass fraction] 98 % Taty Perez APRN.CONSULTING ACTUARY Work Phone: [facility] 04-09-2022 14:29-0500 Systolic blood pressure 118 mm[Hg] Taty Perez APRN.CONSULTING ACTUARY Work Phone: [facility] 04-08-2022 11:01-0500 Body temperature 97.3 [degF] Treatment Wstr Work Phone: [facility] 04-08-2022 11:01-0500 Diastolic blood pressure 57 mm[Hg] Treatment Wstr Work Phone: [facility] 04-08-2022 11:01-0500 Heart rate 79 /min Treatment Wstr Work Phone: [facility] 04-08-2022 11:01-0500 Systolic blood pressure 125 mm[Hg] Treatment Wstr Work Phone: [facility] 03-06-2022 14:21-0500 Body temperature 97.11 [degF] Cassidy Arreola [employer].CONSULTING ACTUARY Work Phone: [facility] 03-06-2022 14:21-0500 Body weight 76.43 kg Cassidy Arreola [employer].CONSULTING ACTUARY Work Phone: [facility] 03-06-2022 14:21-0500 Diastolic blood pressure 57 mm[Hg] Cassidy Arreola [employer].CONSULTING ACTUARY Work Phone: [facility] 03-06-2022 14:21-0500 Heart rate 72 /min Anaheim Arreola [employer].CONSULTING ACTUARY Work Phone: [facility] 03-06-2022 14:21-0500 SaO2% (BldA) [Mass fraction] 100 % Cassidy Arreola [employer].CONSULTING ACTUARY Work Phone: [facility] 03-06-2022 14:21-0500 Systolic blood pressure 119 mm[Hg] Cassidy Blackmonenter [employer].CONSULTING ACTUARY Work Phone: [facility] 03-06-2022 13:44-0500 Body temperature 97 [degF] Dr. Galina Iraheta Work Phone: [facility] 03-06-2022 13:44-0500 Diastolic blood pressure 64 mm[Hg] Dr. Galina Iraheta Work Phone: [facility] 03-06-2022 13:44-0500 Heart rate 68 /min Dr. Galina Iraheta Work Phone: [facility] 03-06-2022 13:44-0500 Respiratory rate 16 /min Dr. Galina Iraheta Work Phone: [facility] 03-06-2022 13:44-0500 SaO2% (BldA) [Mass fraction] 99 % Dr. Galina Iraheta Work Phone: [facility] 03-06-2022 13:44-0500 Systolic blood pressure 132 mm[Hg] Dr. Galina Iraheta Work Phone: [facility] 03-06-2022 08:50-0500 Body height 165.[address] Galina Iraheta Work Phone: [facility] 03-06-2022 08:50-0500 Body mass index (BMI) [Ratio] 27.3 kg/m2 Dr. Galina Iraheta Work Phone: 4(221)[phone] [place] [address] 03-06-2022 08:50-0500 Body weight 74.[address] Galina Iraheta Work Phone: [facility] 01-02-2022 13:31-0400 Body height 167.6 cm Basilia Hernández MD Work Phone: [facility] 01-02-2022 13:31-0400 Body weight 74.84 kg Basilia Hernández MD Work Phone: [facility] 01-02-2022 13:31-0400 Diastolic blood pressure 62 mm[Hg] Basilia Hernández MD Work Phone: [facility] 01-02-2022 13:31-0400 Systolic blood pressure 126 mm[Hg] Basilia Hernández MD Work Phone: [facility] 12-28-2021 15:09-0400 Body temperature 98.9 [degF] Dr. Galina Iraheta Work Phone: [facility] 12-28-2021 15:09-0400 Diastolic blood pressure 79 mm[Hg] Dr. Galina Iraheta Work Phone: [facility] 12-28-2021 15:09-0400 Heart rate 70 /min Dr. Galina Iraheta Work Phone: [facility] 12-28-2021 15:09-0400 Respiratory rate 16 /min Dr. Galina Iraheta Work Phone: [facility] 12-28-2021 15:09-0400 SaO2% (BldA) [Mass fraction] 94 % Dr. Galina Iraheta Work Phone: [facility] 12-28-2021 15:09-0400 Systolic blood pressure 125 mm[Hg] Dr. Galina Iraheta Work Phone: [facility] 12-28-2021 11:18-0400 Body height 165.[address] Galina Iraheta Work Phone: [facility] Work Phone: 12-28-2021 11:18-0400 Body mass index (BMI) [Ratio] 27.4 kg/m2 Dr. Galina Iraheta Work Phone: [facility] 12-28-2021 11:18-0400 Body weight 74.[address] Galina Iraheta Work Phone: [facility] 10-18-2021 18:15-0400 Diastolic blood pressure 68 mm[Hg] [facility] Work Phone: 10-18-2021 18:15-0400 Heart rate 74 /min [facility] Work Phone: 10-18-2021 18:15-0400 Respiratory rate 13 /min [facility] Work Phone: 10-18-2021 18:15-0400 SaO2% (BldA) [Mass fraction] 99 % [facility] Work Phone: 10-18-2021 18:15-0400 Systolic blood pressure 134 mm[Hg] [facility] Work Phone: 10-18-2021 17:15-0400 Body temperature 98.7 [degF] [facility] Work Phone: 10-18-2021 09:50-0400 Body height 167.64 cm [facility] Work Phone: 10-18-2021 09:50-0400 Body mass index (BMI) [Ratio] 27.4 kg/m2 [facility] Work Phone: 10-18-2021 09:50-0400 Body weight 77.11 kg [facility] Work Phone: 10-11-2021 07:56-0400 Body temperature 98.01 [degF] Jeancarlos Hooker MD Work Phone: [facility] 10-11-2021 07:56-0400 Body weight 77.56 kg Jeancarlos Hooker MD Work Phone: [facility] 10-11-2021 07:56-0400 Diastolic blood pressure 48 mm[Hg] Jeancarlos Hooker MD Work Phone: [facility] 10-11-2021 07:56-0400 Heart rate 78 /min Jeancarlos Hooker MD Work Phone: [facility] 10-11-2021 07:56-0400 Respiratory rate 16 /min Jeancarlos Hooker MD Work Phone: [facility] 10-11-2021 07:56-0400 SaO2% (BldA) [Mass fraction] 100 % Jeancarlos Hooker MD Work Phone: [facility] 10-11-2021 07:56-0400 Systolic blood pressure 115 mm[Hg] Jeancarlos Hooker MD Work Phone: [facility] 09-26-2021 14:00-0400 Body height 167.6 cm Basilia Hernández MD Work Phone: [facility] 09-26-2021 14:00-0400 Body weight 77.11 kg Basilia Hernández MD Work Phone: [facility] 09-18-2021 09:15-0400 Body temperature 97.39 [degF] Cassidy Arreola [employer]SULTING ACTUARY Work Phone: [facility] 09-18-2021 09:15-0400 Body weight 77.11 kg Cassidy Arreola [employer].CONSULTING ACTUARY Work Phone: [facility] 09-18-2021 09:15-0400 Diastolic blood pressure 47 mm[Hg] Cassidy Arreola [employer].CONSULTING ACTUARY Work Phone: [facility] 09-18-2021 09:15-0400 Heart rate 75 /min Anaheimsuhas Arreola [employer].CONSULTING ACTUARY Work Phone: [facility] 09-18-2021 09:15-0400 Systolic blood pressure 108 mm[Hg] Cassidy Arreola [employer].CONSULTING ACTUARY Work Phone: [facility] 09-18-2021 09:12-0400 Body weight 77.25 kg Lab[facility]Port [facility] Work Phone: [facility] 09-11-2021 10:39-0400 Body weight 76.66 kg Jayde Hebert MD Work Phone: [facility] 09-11-2021 10:39-0400 Diastolic blood pressure 58 mm[Hg] Jayde Hebert MD Work Phone: [facility] 09-11-2021 10:39-0400 Systolic blood pressure 124 mm[Hg] Jayde Hebert MD Work Phone: [facility] 09-05-2021 13:15-0400 Body height 167.6 cm Cecilio Ibarra DO Work Phone: [facility] 09-05-2021 13:15-0400 Body weight 77.66 kg Cecilio Ibarra DO Work Phone: [facility] 09-05-2021 13:15-0400 Diastolic blood pressure 54 mm[Hg] Cecilio Ibarra DO Work Phone: [facility] 09-05-2021 13:15-0400 Heart rate 73 /min Cecilio Arrietafitprecious DO Work Phone: [facility] 09-05-2021 13:15-0400 SaO2% (BldA) [Mass fraction] 97 % Cecilio Ibarra DO Work Phone: [facility] 09-05-2021 13:15-0400 Systolic blood pressure 104 mm[Hg] Cecilio Ibarra DO Work Phone: [facility] 08-30-2021 13:17-0400 Body weight 78.47 kg Jayde Hebert MD Work Phone: [facility] 08-26-2021 14:42-0400 Heart rate 76 /min [facility] Work Phone: 08-26-2021 14:42-0400 Respiratory rate 17 /min [facility] Work Phone: 08-26-2021 14:42-0400 SaO2% (BldA) [Mass fraction] 97 % [facility] Work Phone: 08-26-2021 13:01-0400 Diastolic blood pressure 49 mm[Hg] [facility] Work Phone: 08-26-2021 13:01-0400 Systolic blood pressure 111 mm[Hg] [facility] Work Phone: 08-26-2021 12:13-0400 Body height 167.64 cm [facility] Work Phone: 08-26-2021 12:13-0400 Body mass index (BMI) [Ratio] 27.6 kg/m2 [facility] Work Phone: 08-26-2021 12:13-0400 Body temperature 98.1 [degF] [facility] Work Phone: 08-26-2021 12:13-0400 Body weight 77.56 kg [facility] Work Phone: 08-23-2021 15:21-0400 Body temperature 98 [degF] [facility] Work Phone: 08-23-2021 15:21-0400 Diastolic blood pressure 41 mm[Hg] [facility] Work Phone: 08-23-2021 15:21-0400 Heart rate 72 /min [facility] Work Phone: 08-23-2021 15:21-0400 Respiratory rate 16 /min [facility] Work Phone: 08-23-2021 15:21-0400 SaO2% (BldA) [Mass fraction] 96 % [facility] Work Phone: 08-23-2021 15:21-0400 Systolic blood pressure 105 mm[Hg] [facility] Work Phone: 08-23-2021 12:24-0400 Body height 167.64 cm [facility] Work Phone: 08-23-2021 12:24-0400 Body mass index (BMI) [Ratio] 27.8 kg/m2 [facility] Work Phone: 08-23-2021 12:24-0400 Body weight 78.1 kg [facility] Work Phone: 08-15-2021 16:04-0400 Body weight 78.47 kg Jayde Hebert MD Work Phone: [facility] 08-15-2021 16:04-0400 Diastolic blood pressure 58 mm[Hg] Jayde Hebert MD Work Phone: [facility] 08-15-2021 16:04-0400 Systolic blood pressure 118 mm[Hg] Jayde Hebert MD Work Phone: [facility] 08-08-2021 14:10-0400 Body weight 78.02 kg An [employer] Work Phone: [facility] 08-08-2021 14:10-0400 Diastolic blood pressure 66 mm[Hg] An Older [employer] Work Phone: [facility] 08-08-2021 14:10-0400 Heart rate 68 /min An Older [employer] Work Phone: [facility] 08-08-2021 14:10-0400 Respiratory rate 16 /min An Older [employer] Work Phone: [facility] 08-08-2021 14:10-0400 Systolic blood pressure 116 mm[Hg] An Older [employer] Work Phone: [facility] 07-05-2021 09:41-0400 Body height 167.6 cm Johnny Turk MD Work Phone: [facility] 07-05-2021 09:41-0400 Body temperature 98.6 [degF] Johnny Turk MD Work Phone: [facility] 07-05-2021 09:41-0400 Body weight 79.83 kg Johnny Turk MD Work Phone: [facility] 07-05-2021 09:41-0400 Diastolic blood pressure 60 mm[Hg] Johnny Turk MD Work Phone: [facility] 07-05-2021 09:41-0400 Heart rate 69 /min Johnny Turk MD Work Phone: [facility] 07-05-2021 09:41-0400 SaO2% (BldA) [Mass fraction] 100 % Johnny Turk MD Work Phone: [facility] 07-05-2021 09:41-0400 Systolic blood pressure 106 mm[Hg] Johnny Turk MD Work Phone: [facility] 07-03-2021 11:58-0400 Body temperature 98.4 [degF] Alma Older [employer] Work Phone: [facility] 07-03-2021 11:58-0400 Body weight 78.93 kg Alma Older [employer] Work Phone: [facility] 07-03-2021 11:58-0400 Diastolic blood pressure 64 mm[Hg] Alma Older [employer] Work Phone: [facility] 07-03-2021 11:58-0400 Heart rate 67 /min Alma Older [employer] Work Phone: [facility] 07-03-2021 11:58-0400 Respiratory rate 12 /min Alma Older [employer] Work Phone: [facility] 07-03-2021 11:58-0400 SaO2% (BldA) [Mass fraction] 97 % Alma Older [employer] Work Phone: [facility] 07-03-2021 11:58-0400 Systolic blood pressure 118 mm[Hg] Alma Older [employer] Work Phone: [facility] 07-03-2021 04:44-0400 Diastolic blood pressure 64 mm[Hg] [facility] Work Phone: 07-03-2021 04:44-0400 Heart rate 69 /min [facility] Work Phone: 07-03-2021 04:44-0400 Respiratory rate 18 /min [facility] Work Phone: 07-03-2021 04:44-0400 SaO2% (BldA) [Mass fraction] 96 % [facility] Work Phone: 07-03-2021 04:44-0400 Systolic blood pressure 119 mm[Hg] [facility] Work Phone: 07-02-2021 23:21-0400 Body height 167.64 cm [facility] Work Phone: 07-02-2021 23:21-0400 Body mass index (BMI) [Ratio] 28.4 kg/m2 [facility] Work Phone: 07-02-2021 23:21-0400 Body temperature 97.2 [degF] [facility] Work Phone: 07-02-2021 23:21-0400 Body weight 79.9 kg [facility] Work Phone: 06-05-2021 10:40-0400 Body height 167.6 cm [employer] Work Phone: [facility] 06-05-2021 10:40-0400 Body weight 79.83 kg [employer] Work Phone: [facility] 06-05-2021 10:40-0400 Diastolic blood pressure 62 mm[Hg] INF[employer]le DO Work Phone: [facility] 06-05-2021 10:40-0400 Heart rate 65 /min Aby Bruner DO Work Phone: [facility] 06-05-2021 10:40-0400 SaO2% (BldA) [Mass fraction] 99 % Aby Bruner DO Work Phone: [facility] 06-05-2021 10:40-0400 Systolic blood pressure 110 mm[Hg] Aby Bruner DO Work Phone: [facility] Encounters Encounter Date Encounter Type Care Provider Facility Start: 09-07-2024 End: 09-07-2024 Patient encounter procedure Juliet SCHAEFER -[facility] Work Phone: Start: 09-07-2024 End: 09-07-[address] Galina Iraheta MD Work Phone: [facility] Work Phone: Start: 09-03-2024 End: 09-03-[address] Charles Ramos MD -[facility] Start: 09-03-2024 End: 09-03-[address] Galina Iraheta MD Work Phone: [facility] [employer] [facility] Work Phone: Start: 08-30-2024 End: 09-13-2024 Telephone encounter Thalia Monterroso MD Work Phone: Rheumatology Comment on above: Scheduling Start: 08-30-2024 ambulatory Reji POPE Facility:[facility] Start: 08-30-2024 Registered Referred Reji Reyna MD -[facility] Start: 08-27-2024 End: 08-27-2024 ambulatory Thalia Monterroso MD Work Phone: Rheumatology Comment on above: Rheumatoid arthritis involving multiple sites, unspecified whether rheumatoid factor present (HCC) (Primary Dx); Senile osteoporosis; On prednisone therapy [place] fax Start: 08-27-2024 End: 08-27-2024 Telemedicine consultation with patient Thalia Monterroso MD Work Phone: Rheumatology Start: 08-18-2024 End: 08-18-[address] Charles Ramos MD -[facility] Start: 08-18-2024 End: 08-18-[address] Galina Iraheta MD Work Phone: [facility] Work Phone: Start: 08-13-2024 End: 08-13-[address] Charles Ramos MD -[facility] Start: 08-13-2024 End: 08-13-[address] Galina Iraheta MD Work Phone: [facility] Work Phone: Start: 08-12-2024 End: 08-12-[address] Galina Iraheta MD Work Phone: [facility] Work Phone: Start: 08-12-2024 End: 08-12-2024 Patient encounter procedure Galina SCHAEFER -[facility] Work Phone: Start: 08-06-2024 End: 08-06-[address] Galina Iraheta MD Work Phone: [facility] Work Phone: Start: 08-06-2024 End: 08-06-[address] Hiwot Abdullahi MD -[facility] Work Phone: Start: 08-06-2024 End: 08-06-2024 ambulatory [facility] Facility:[facility] Start: 08-02-2024 End: 08-02-2024 Departed Referred Reji Reyna MD Pending sale to [facility] Start: 08-02-2024 End: 08-02-2024 [facility] Start: 07-08-2024 End: 07-08-[address] Galina Iraheta MD Work Phone: [facility] Work Phone: Start: 07-08-2024 End: 07-08-2024 Departed Referred [facility] [place] Start: 07-08-2024 Registered Referred Reji GonzalezAgnes [facility] [place] Start: 07-07-2024 End: 07-08-[address] Galina Iraheta MD Work Phone: [facility] Work Phone: Start: 07-07-2024 End: 07-07-2024 Departed Referred Reji GonzalezAgnes [facility] [place] Start: 07-07-2024 Registered Referred Reji GonzalezAgnes [facility] [place] Start: 07-06-2024 End: 07-07-[address] Galina Iraheta MD Work Phone: [facility] Work Phone: Start: 07-06-2024 End: 07-06-[address] Reji Reyna MD -[facility] Work Phone: Start: 07-05-2024 End: 07-05-[address] Galina Iraheta MD Work Phone: [facility] Work Phone: Start: 07-05-2024 End: 07-05-2024 Departed Referred Reji GonzalezAgnes [facility] [place] Start: 07-05-2024 Registered Referred Reji GonzalezAgnes [facility] [place] Start: 07-05-2024 End: 07-05-2024 ambulatory Reji POPE Facility:[facility] Start: 06-16-2024 End: 06-16-2024 Telephone encounter Thalia Monterroso MD Work Phone: Rheumatology Start: 06-16-2024 End: 06-16-2024 Departed Referred Reji GonzalezAgnes [facility] [place] Start: 06-16-2024 Registered Referred Reji Bettencourt/[facility] Start: 06-16-2024 End: 06-16-2024 [facility] Facility[facility] Start: 06-11-2024 End: 06-11-2024 ambulatory [place] [facility] Work Phone: Hematology/Oncology Comment on above: Rheumatoid arthritis involving multiple sites, unspecified whether rheumatoid factor present (HCC); Senile osteoporosis Start: 05-31-2024 End: 05-31-[address] Galina Iraheta MD Work Phone: [facility] Work Phone: Start: 05-31-2024 End: 05-31-2024 Departed Referred Reji Bettencourt/Hebert Start: 05-31-2024 Registered Referred Reji [place] Start: 05-31-2024 End: 05-31-2024 ambulatory Reji POPE Facility:[facility] Start: 05-21-2024 End: 05-21-2024 ambulatory Thalia Monterroso MD Work Phone: Rheumatology Comment on above: Rheumatoid arthritis involving multiple sites, unspecified whether rheumatoid factor present (HCC) (Primary Dx); Senile osteoporosis; On prednisone therapy Start: 05-21-2024 End: 05-21-2024 Telemedicine consultation with patient Thalia Monterroso MD Work Phone: Rheumatology Start: 05-13-2024 End: 05-13-[address] Galina Iraheta MD Work Phone: [facility] Work Phone: Start: 05-13-2024 End: 05-13-2024 Departed Referred Reji GonzalezAgnes Bettencourt/Hebert Start: 05-13-2024 End: 05-13-2024 ambulatory Galina Iraheta Facility:[facility] Start: 05-13-2024 End: 05-13-2024 Patient encounter procedure Galina SCHAEFER -[facility] Work Phone: Start: 05-13-2024 End: 05-13-2024 ambulatory Reji Herronrejialyssa TOSHIA Facility:[facility] Start: 05-03-2024 ambulatory Reji Herrong rian OLS Facility:[facility] Start: 05-03-2024 [facility] Start: 04-23-2024 End: 04-23-2024 [facility] Start: 04-23-2024 End: 04-23-2024 ambulatory Reji POPE Facility:[facility] Start: 04-05-2024 End: 04-05-2024 [facility] Start: 04-05-2024 End: 04-05-2024 ambulatory Reji POPE Facility:[facility] Start: 03-25-2024 End: 03-26-2024 ambulatory Cassidy Arreola APRN.CNP Work Phone: Hematology/Oncology Comment on above: Test Results Start: 03-19-2024 End: 03-19-2024 Subsequent hospital visit by physician [facility] Comment on above: Bilateral hip pain [ M25.551, M25.552] Iron deficiency anem ia due to chronic blood loss [D50.0] Start: 03-19-2024 End: 03-19-2024 ambulatory REJI HERRONREJIAlyssa Facility:[facility] Start: 03-12-2024 End: 03-12-2024 ambulatory Treatment Rm [place] [facility] Work Phone: Hematology/Oncology Comment on above: [...] Comment on above: Appointment Start: 03-02-2024 ambulatory Jasmichael[place]field Jakeashley POPE Facility:[facility] Start: 03-02-2024 Registered Referred Reji Reyna MD -[facility] Start: 03-01-2024 ambulatory Efmerylshine Joseph rian POPE Facility:[facility] Start: 03-01-2024 Registered Referred Reji Reyna MD -[facility] Start: 02-27-2024 End: 02-27-2024 ambulatory Treatment Rm 15 [place] [facility] Work Phone: Hematology/Oncology Comment on above: [...] Start: 02-24-2024 End: 03-29-2024 ambulatory [place] [facility] Work Phone: Hematology/Oncology Comment on above: Rheumatoid arthritis involving multiple sites with positive rheumatoid factor (HCC) (Primary Dx); Rheumatoid arthritis involving multiple sites, unspecified whether rheumatoid factor present (HCC); Senile osteoporosis; Malignant neoplasm of lower-inner quadrant of right breast of female, estrogen receptor positive (HCC); Iron deficiency anemia due to chronic blood loss Start: 02-02-2024 End: 02-02-2024 ambulatory Efarline Ramirezalyssa OLS Facility:[facility] Start: 01-28-2024 End: 01-28-2024 ambulatory Treatment Rm [address] [place] [facility] Work Phone: Hematology/Oncology Comment on above: Rheumatoid arthritis involving multiple sites with positive rheumatoid factor (HCC) (Primary Dx) Start: 01-23-2024 End: 01-23-2024 Telephone encounter Thalia Monterroso MD Work Phone: Rheumatology Comment on above: Patient Update Start: 01-14-2024 End: 01-14-2024 ambulatory Efewongbe Olerejie OLS Facility:[facility] Start: 01-05-2024 ambulatory Efewongbe Jake he OLS Facility:[facility] Start: 12-31-2023 End: 12-31-2023 [facility] Start: 12-29-2023 ambulatory Efewongbe Jake he OLS Facility:[facility] Start: 12-11-2023 End: 12-11-2023 ambulatory EFEWONGBE B OLEGHE Hematology/Oncology Comment on above: Senile osteoporosis (Primary Dx) Start: 12-11-2023 End: 12-11-2023 Patient encounter procedure Treatment Rm [address] [place] [facility] Work Phone: Hematology/Oncology Start: 12-04-2023 End: 12-04-2023 ambulatory EFEWONGBE B OLEGHE Hematology/Oncology Comment on above: Rheumatoid arthritis involving multiple sites with positive rheumatoid factor (HCC) (Primary Dx) Start: 12-04-2023 End: 12-04-2023 Patient encounter procedure Treatment Rm 14 [place] [facility] Work Phone: Hematology/Oncology Start: 12-02-2023 ambulatory Efewongbe Jake rian OLS Facility:[facility] Start: 12-01-2023 ambulatory Efewongbe Jake he OLS Facility:[facility] Start: 11-27-2023 ambulatory Efewongbe Jake he OLS Facility:[facility] Start: 11-25-2023 End: 11-26-2023 Telephone encounter Sal Bonilla DO Work Phone: Hematology/Oncology Comment on above: Patient Update Start: 11-25-2023 End: 11-25-2023 ambulatory [place] [facility] Work Phone: Hematology/Oncology Comment on above: [...] Phone: Rheumatology Start: 11-07-2023 End: 11-07-2023 ambulatory Galina [facility] Facility:[facility] Start: 11-04-2023 End: 11-04-2023 [facility] Start: 11-03-2023 [facility] Facility:[facility] Start: 10-09-2023 End: 10-09-2023 [facility] Comment on above: Rheumatoid arthritis involving multiple sites with positive rheumatoid factor (HCC) (Primary Dx) Start: 10-09-2023 End: 10-09-2023 Patient encounter procedure Treatment Rm [address] [place] [facility] Work Phone: Hematology/Oncology Start: 09-29-2023 End: 09-29-2023 [facility]ulatory [facility] [facility] Facility[facility] Start: 09-12-2023 End: 09-12-2023 ambulatory Treatment Rm [address] [place] [facility] Work Phone: Hematology/Oncology Comment on above: Rheumatoid arthritis involving multiple sites with positive rheumatoid factor (HCC) (Primary Dx) Start: 08-28-2023 End: 08-28-2023 ambulatory Treatment Rm 7 [place] [facility] Work Phone: Hematology/Oncology Comment on above: Rheumatoid arthritis involving multiple sites with positive rheumatoid factor (HCC) (Primary Dx) Start: 08-19-2023 Telephone encounter Cassidy vizcaino APRN.CNP Work Phone: Hematology/Oncology Comment on above: Orders Start: 08-19-2023 End: 08-19-2023 Patient encounter procedure Cassidy Arreola [employer] Work Phone: Hematology/Oncology Start: 08-19-2023 End: 08-19-2023 ambulatory [place] [facility] Work Phone: Hematology/Oncology Comment on above: [...] above: Medication Problem Start: 07-15-2023 End: 07-15-2023 Patient encounter procedure Vikash Sylvester APRN.[employer]ULTING [employer] Work Phone: URO/Gynecology Comment on above: Recurrent UTI (Prima ry Dx); Vaginal atrophy Start: 07-04-2023 ambulatory Hamzah Jackson [facility] Start: 07-04-2023 End: 07-04-2023 Patient encounter procedure [...] 06-30-[address] Galina Iraheta Work Phone: [facility] Work Phone: Start: 06-30-2023 End: 06-30-[address] Galina Iraheta Work Phone: [facility] Start: 06-18-2023 End: 06-18-2023 Patient encounter procedure Stella Preciado PA-C Work Phone: Orthopaedics Comment on above: Chronic pain of left knee (Primary Dx); Primary osteoarthritis of both knees Start: 06-18-2023 End: 06-18-2023 Subsequent hospital visit by physician Xr [facility] Work Phone: Radiology Comment on above: Primary osteoarthrit is of both knees [M17.0] Start: 06-16-2023 End: 06-16-2023 Patient encounter procedure Cecilio Agnes Marilu DO Work Phone: Cardiology Comment on [...] Subsequent hospital visit by physician [facility] Work Phone: Radiology Comment on above: On prednisone therap y [Z79.52] Start: 06-02-2023 End: 06-02-[address] Galina Iraheta Work Phone: [facility] Work Phone: Start: 06-02-2023 End: 06-02-[address] Galina Iraheta Work Phone: [facility] Start: 05-19-2023 Orders Only Cassidy waldrop APRN.[employer]SULTING [employer] Work Phone: Hematology/Oncology Comment on above: Malignant neoplasm o f lower-inner quadrant of right breast of female, estrogen receptor positive (HCC) (Primary Dx); Iron deficiency anemia due to chronic blood loss Start: 05-05-2023 End: 05-05-[address] Galina Iraheta Work Phone: [facility] Work Phone: Start: 05-05-2023 End: 05-05-[address] Galina Iraheta Work Phone: [facility] Start: 04-28-2023 Telephone encounter Thalia Monterroso MD Work Phone: Rheumatology Comment on above: Patient Update Start: 04-24-2023 Telephone encounter Thalia Monterroso MD Work Phone: Rheumatology Comment on above: Pain Start: 03-31-2023 End: 03-31-[address] Galina Iraheta Work Phone: [facility] Work Phone: Start: 03-31-2023 End: 03-31-[address] Galina Iraheta Work Phone: [facility] Start: 03-24-2023 End: 03-24-[address] Galina Iraheta Work Phone: [facility] Work Phone: Start: 03-03-2023 End: 03-03-[address] Galina Iraheta Work Phone: [facility] Start: 02-19-2023 End: 02-19-[address] Galina Iraheta Work Phone: [facility] Work Phone: Start: 02-11-2023 End: 02-11-2023 ambulatory Cassidy Arreola APRN.CNP Work Phone: Hematology/Oncology Comment on above: Personal history of breast cancer (Primary Dx); Iron deficiency anemia due to chronic blood loss Start: 02-11-2023 End: 02-11-2023 Patient encounter procedure Cassidy Arreola APRN.[employer]SULTING [employer] Work Phone: [facility] Start: 02-03-2023 End: 02-03-2023 ambulatory [facility] Work Phone: Start: 02-03-2023 End: 02-03-[address] [facility] Start: 01-29-2023 End: 01-29-[address] Galina Iraheta Work Phone: [facility] Work Phone: Start: 01-14-2023 End: 01-14-2023 ambulatory [facility] [facility] Work Phone: Hematology/Oncology Comment on above: Iron deficiency anem ia due to chronic blood loss (Primary Dx); Personal history of breast cancer; Malignant neoplasm of lower-inner quadrant of right breast of female, estrogen receptor positive (HCC) Start: 12-30-2022 End: 12-30-2022 ambulatory [facility] Work Phone: Start: 12-30-2022 End: 12-30-[address] [facility] Start: 12-19-2022 Telephone encounter Flaca Jasso DO Work Phone: Orthopaedics Comment on above: Last Office Visit No te Start: 12-17-2022 End: 12-17-2022 ambulatory [facility] [facility] Work Phone: Hematology/Oncology Comment on above: Iron deficiency anem ia due to chronic blood loss (Primary Dx) Start: 12-13-2022 End: 12-13-2022 Patient encounter procedure Juliet Gaffney APRN.CONSULTING ACTUARY Work Phone: Cardiology Comment on above: Essential hypertensi on (Primary Dx); Paroxysmal atrial fibrillation (HCC) Start: 12-02-2022 End: 12-02-[address] [facility] Start: 11-26-2022 Telephone encounter Stella camejo PA-C Work Phone: Orthopaedics Start: 11-25-2022 End: 11-25-2022 Subsequent hospital visit by physician Xr [facility] Work Phone: Radiology Comment on above: Pain in right wrist [M25.531] Start: 11-25-2022 End: 11-25-2022 Patient encounter procedure Stella Preciado PA-C Work Phone: Orthopaedics Comment on above: Pain in right wrist (Primary Dx); Primary osteoarthritis of both knees; [facility] arthritis Start: 11-14-2022 Telephone encounter Jerrica Beltran APRN.CNP Work Phone: Cardiology Comment on above: Appointment Cancelle d Start: 11-04-2022 End: 11-04-[address] [facility] Start: 11-04-[address] Galina Iraheta Work Phone: [facility] Start: 10-22-2022 End: 10-22-2022 ambulatory [place] [facility] Work Phone: Hematology/Oncology Comment on above: Encounter for care r elated to vascular access port (Primary Dx) Start: 09-30-2022 End: 09-30-[address] Galina Iraheta Work Phone: [facility] Work Phone: Start: 09-30-2022 End: 09-30-[address] Galina Iraheta Work Phone: [facility] Start: 09-30-[address] Galina Iraheta Work Phone: [facility] Start: 09-24-2022 End: 09-24-2022 ambulatory [place] [facility] Work Phone: Hematology/Oncology Comment on above: Encounter for care r elated to vascular access port (Primary Dx) Start: 09-20-2022 Telephone encounter Cecilio Ibarra DO Work Phone: Cardiology Comment on above: Results (CBC 09/19/22 - 2 week starting Eliquis) Start: 09-19-2022 End: 09-19-[address] Galina Iraheta Work Phone: [facility] Work Phone: Start: 09-19-2022 End: 09-19-[address] Galina Iraheta Work Phone: [facility] Start: 09-19-[address] Galina Iraheta Work Phone: [facility] Start: 09-05-2022 End: 09-05-2022 Patient encounter procedure Cecilio Ibarra DO Work Phone: Cardiology Comment on above: Paroxysmal atrial fi brillation (HCC) (Primary Dx); Rheumatic mitral regurgitation; Essential hypertension; Mixed hyperlipidemia; Obstructive sleep apnea syndrome; Shortness of breath; PAF (paroxysmal atrial fibrillation) (HCC); SVT (supraventricular tachycardia) (HCC) Start: 09-02-2022 End: 09-02-[address] Galina Iraheta Work Phone: [facility] Work Phone: Start: 09-02-2022 End: 09-02-[address] Galina Iraheta Work Phone: [facility] Start: 08-27-2022 End: 08-27-2022 ambulatory Cassidy Arreola APRN.CONSULTING ACTUARY Work Phone: Hematology/Oncology Comment on above: Personal history of breast cancer (Primary Dx); Iron deficiency anemia due to chronic blood loss Start: 08-27-2022 End: 08-27-2022 Patient encounter procedure Cassidy Arreola APRN.CNP Work Phone: [facility] Start: 08-14-2022 End: 08-14-[address] Galina Iraheta Work Phone: [facility] Work Phone: Start: 07-29-2022 End: 07-29-[address] Galina Iraheta Work Phone: [facility] Start: 07-01-2022 End: 07-01-[address] Galina Iraheta Work Phone: [facility] Work Phone: Start: 07-01-2022 End: 07-01-[address] Galina Iraheta Work Phone: [facility] Start: 06-18-2022 End: 06-18-2022 ambulatory [place] [facility] Work Phone: Hematology/Oncology Comment on above: Personal history of breast cancer (Primary Dx) Start: 06-11-2022 Telephone encounter Cassidy vizcaino APRN.CONSULTING ACTUARY Work Phone: Hematology/Oncology Comment on above: Results Start: 06-05-2022 End: 06-05-2022 Subsequent hospital visit by physician [facility] Work Phone: Radiology Comment on above: Personal history of breast cancer [Z85.3] Start: 06-05-2022 End: 06-05-2022 ambulatory Cassidy Arreola APRN.CONSULTING ACTUARY Work Phone: Hematology/Oncology Comment on above: Personal history of breast cancer (Primary Dx); Rib pain on right side Start: 06-05-2022 End: 06-05-2022 Patient encounter procedure Cassidy Arreola APRN.CONSULTING ACTUARY Work Phone: [facility] Start: 06-03-2022 End: 06-03-[address] Galina Iraheta Work Phone: [facility] Work Phone: Start: 06-03-2022 End: 06-03-[address] Galina Iraheta Work Phone: [facility] Start: 06-03-[address] Galina Iraheta Work Phone: [facility] Start: 05-30-2022 End: 05-30-[address] Galina Iraheta Work Phone: [facility] Start: 05-30-2022 Telephone encounter Sal gutierrez DO Work Phone: Hematology/Oncology Comment on above: Patient Question Start: 05-06-2022 End: 05-06-[address] Galina Iraheta Work Phone: [facility] Work Phone: Start: 05-06-2022 End: 05-06-[address] Galina Iraheta Work Phone: [facility] Start: 04-17-2022 End: 04-17-2022 ambulatory Treatment Rm [place] [facility] Work Phone: Hematology/Oncology Comment on above: [...] End: 04-15-2022 ambulatory Treatment Rm 2 [place] [facility] Work Phone: Hematology/Oncology Comment on above: Iron deficiency anem ia due to chronic blood loss (Primary Dx); Iron malabsorption Start: 04-12-2022 End: 04-12-2022 ambulatory Treatment Rm 2 [place] [facility] Work Phone: Hematology/Oncology Comment on above: Iron deficiency anem ia due to chronic blood loss (Primary Dx); Iron malabsorption Start: 04-10-2022 End: 04-10-2022 ambulatory Treatment Rm 3 [place] [facility] Work Phone: Hematology/Oncology Comment on above: Iron deficiency anem ia due to chronic blood loss (Primary Dx); Iron malabsorption Start: 04-10-2022 Telephone encounter Starla Son RN He matology/Oncology Comment on above: Blood Tester - O ther (Symptoms ) Start: 04-09-2022 End: 04-09-2022 Office outpatient visit 25 minutes Taty Perez APRN.CONSULTING ACTUARY Work Phone: Cardiology Comment on above: Chest pain, unspecif ied type (Primary Dx); Paroxysmal atrial fibrillation (HCC); Rheumatic mitral regurgitation; Essential hypertension; Mixed hyperlipidemia; Obstructive sleep apnea syndrome; Shortness of breath Start: 04-08-2022 End: 04-08-2022 ambulatory Treatment Rm 13 [place] [facility] Work Phone: Hematology/Oncology Comment on above: Iron 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 Galina Iraheta Work Phone: [facility] Work Phone: Start: 04-01-2022 End: 04-01-[address] Galina Iraheat Work Phone: [facility] Start: 04-01-[address] Galina Iraheta Work Phone: [facility] Start: 03-28-2022 End: 03-28-[address] Galina Iraheta Work Phone: [facility] Start: 03-25-2022 End: 03-25-[address] Galina Iraheta Work Phone: [facility] Start: 03-24-2022 Telephone encounter Sal gutierrez DO Work Phone: Hematology/Oncology Comment on above: Results (CBC) Start: 03-22-2022 End: 03-22-2022 ambulatory [place] [facility] Work Phone: Hematology/Oncology Comment on above: Iron deficiency anem ia due to chronic blood loss Start: 03-21-2022 Telephone encounter Sal gutierrez DO Work Phone: Hematology/Oncology Comment on above: Orders; Appointment Start: 03-14-2022 End: 03-14-2022 ambulatory [place] [facility] Work Phone: Hematology/Oncology Comment on above: Malignant neoplasm o f lower-inner quadrant of right breast of female, estrogen receptor positive (HCC) (Primary Dx); Iron deficiency anemia due to chronic blood loss Start: 03-07-2022 End: 03-07-[address] Galina Iraheta Work Phone: [facility] Work Phone: Start: 03-07-2022 End: 03-07-[address] Galina Iraheta Work Phone: [facility] Start: 03-07-[address] Galina Iraheta Work Phone: [facility] Start: 03-06-2022 Telephone encounter Sal gutierrez DO Work Phone: Hematology/Oncology Comment on above: Returning Patient's Call Start: 03-06-2022 End: 03-06-2022 ambulatory Cassidy Arreola APRN.CONSULTING ACTUARY Work Phone: Hematology/Oncology Comment on above: Malignant neoplasm o f lower-inner quadrant of right breast of female, estrogen receptor positive (HCC) (Primary Dx) Start: 03-06-2022 End: 03-06-2022 Patient encounter procedure Cassidy Arreola APRN.CONSULTING ACTUARY Work Phone: [facility] Start: 03-04-2022 End: 03-04-[address] Galina Iraheta Work Phone: [facility] Work Phone: Start: 03-04-2022 End: 03-04-[address] Galina Iraheta Work Phone: [facility] Start: 03-04-[address] Gal[facility] Iraheta [facility] Start: 02-21-2022 End: 02-21-[address] Galina Iraheta Work Phone: [facility] Work Phone: Start: 02-21-2022 End: 02-21-[address] Galina Iraheta Work Phone: [facility] Start: 02-21-[address] Galina Iraheta Work Phone: [facility] Start: 02-05-2022 End: 02-05-2022 ambulatory [place] [facility] Work Phone: Hematology/Oncology Comment on above: Anemia, unspecified type (Primary Dx) Start: 02-04-2022 End: 02-04-[address] Galina Iraheta Work Phone: [facility] Work Phone: Start: 02-04-2022 End: 02-04-[address] Galina Iraheta Work Phone: [facility] Start: 02-04-[address] Galina Iraheta Work Phone: [facility] Start: 01-21-2022 End: 01-21-2022 Patient encounter procedure Stella Preciado PA-C Work Phone: Orthopaedics Comment on above: Primary osteoarthrit is of both knees (Primary Dx); Chronic pain of right knee Start: 01-17-2022 End: 01-17-[address] Galina Iraheta Work Phone: [facility] Work Phone: Start: 01-17-2022 End: 01-17-[address] Galina Iraheta Work Phone: [facility] Start: 01-17-[address] Galina Iraheta Work Phone: [facility] Start: 01-08-2022 End: 01-08-2022 ambulatory [place] [facility] Work Phone: Hematology/Oncology Comment on above: Malignant neoplasm o f lower-inner quadrant of right breast of female, estrogen receptor positive (HCC) (Primary Dx) Start: 01-03-2022 End: 01-03-[address] Galina Iraheta Work Phone: [facility] Work Phone: Start: 01-03-2022 End: 01-03-[address] Galina Iraheta Work Phone: [facility] Start: 01-03-[address] Galina Iraheta Work Phone: [facility] Start: 01-02-2022 End: 01-02-2022 ambulatory BASILIA HERNÁNDEZ Facility:[facility] Start: 01-02-2022 End: 01-02-2022 Patient encounter procedure Basilia Hernández MD Work Phone: URO/Gynecology Comment on above: Recurrent UTI (Prima ry Dx); History of ESBL E. coli infection; Vaginal atrophy Start: 12-31-2021 End: 12-31-[address] Galina Iraheta Work Phone: [facility] Work Phone: Start: 12-31-2021 End: 12-31-[address] Galina Iraheta Work Phone: [facility] Start: 12-28-2021 End: 12-28-[address] Galina Iraheta Work Phone: [facility] Start: 12-28-2021 End: 12-28-2021 Emergency department patient visit Dr. Galina Iraheta Work Phone: [facility] Start: 12-27-2021 End: 12-27-[address] Galina Iraheta Work Phone: [facility] Work Phone: Start: 12-27-2021 End: 12-27-[address] Galina Iraheta Work Phone: [facility] Start: 12-27-[address] Galina Iraheta Work Phone: [facility] Start: 12-25-2021 Telephone encounter Cecilio Ibarra DO Work Phone: Cardiology Comment on above: Blood Tester - O ther Start: 12-24-2021 End: 12-24-[address] Galina Iraheta Work Phone: [facility] Start: 12-22-2021 End: 12-22-[address] Galina Iraheta Work Phone: [facility] Work Phone: Start: 12-22-2021 End: 12-22-[address] Galina Iraheta Work Phone: [facility] Start: 12-22-[address] Galina Iraheta Work Phone: [facility] Start: 12-21-2021 End: 12-21-[address] Galina Iraheta Work Phone: [facility] Start: 12-17-2021 End: 12-17-[address] Galina Iraheta Work Phone: [facility] Start: 12-17-2021 Registered Referred [facility] Start: 12-11-2021 End: 12-11-2021 ambulatory [place] [facility] Work Phone: Hematology/Oncology Comment on above: Malignant neoplasm o f lower-inner quadrant of right breast of female, estrogen receptor positive (HCC) (Primary Dx) Start: 12-10-2021 End: 12-10-[address] Galina Iraheta Work Phone: [facility] Start: 12-10-2021 Registered Referred [facility] Start: 12-03-2021 End: 12-03-[address] Galina Iraheta Work Phone: [facility] Work Phone: Start: 12-03-2021 End: 12-03-[address] Galina Iraheta Work Phone: [facility] Start: 12-03-2021 Registered Referred [facility] Start: 11-26-2021 End: 11-26-2021 Departed Referred [facility] Start: 11-20-2021 End: 11-20-2021 ambulatory [facility] Work Phone: Start: 11-20-2021 End: 11-20-2021 Departed Referred [facility] Start: 11-13-2021 End: 11-13-2021 ambulatory [place] [facility] Work Phone: Hematology/Oncology Comment on above: Malignant neoplasm o f lower-inner quadrant of right breast of female, estrogen receptor positive (HCC) (Primary Dx) Start: 11-05-2021 Telephone encounter Pharmacist [facility] Comment on above: PAC TRANSFER OF CARE Start: 10-29-2021 End: 10-29-2021 Departed Referred [facility] Start: 10-23-2021 Telephone encounter Nury Andres [facility] Ambulatory Telemanagement Comment on above: Patient Question Start: 10-18-2021 Telephone encounter Galina caballero MD Work Phone: [facility] [place] Comment on above: Patient Update Start: 10-18-2021 End: 10-18-2021 Emergency department patient visit [facility] Start: 10-17-2021 Telephone encounter Galina caballero MD Work Phone: Internal [facility] [place] Comment on above: Release Of Medical R ecords Start: 10-16-2021 Telephone encounter Tesha luther [facility] Comment on above: Anticoagulation Tele phone Fu (home INR ) Start: 10-16-2021 End: 10-16-2021 ambulatory [place] [facility] Work Phone: [facility] Start: 10-16-2021 End: 10-16-2021 Anticoagulant drug monitoring Lab/[place] [facility] Work Phone: Hematology/Oncology Comment on above: Malignant neoplasm o f lower-inner quadrant of right breast of female, estrogen receptor positive (HCC) (Primary Dx); Chronic anticoagulation Start: 10-15-2021 Telephone encounter Vito [facility] Ambulatory Telemanagement Comment on above: Anticoagulation Tele phone Fu (Home INR Result) High INR/lab order Start: 10-11-2021 End: 10-11-2021 Patient encounter procedure Jeancarlos Hooker MD Work Phone: Infectious Disease Comment on above: Recurrent UTI; History of ESBL E. coli infection Start: 10-02-2021 Telephone encounter Tesha luther [facility] Ambulatory Telemanagement Comment on above: Anticoagulation Tele phone Fu (home INR ) Start: 09-26-2021 End: 09-26-2021 ambulatory BASILIA HERNÁNDEZ Facility:[facility] Start: 09-26-2021 End: 09-26-2021 Patient encounter procedure Basilia Hernández MD Work Phone: URO/Gynecology Comment on above: Recurrent UTI (Prima ry Dx); History of ESBL E. coli infection; Mixed stress and urge urinary incontinence Start: 09-19-2021 Telephone encounter Jerrica [facility] Ambulatory Telemanagement Comment on above: Anticoagulation Tele phone Fu (Home INR result) Start: 09-18-2021 End: 09-18-2021 Patient encounter procedure Cassidy Arreola DE ICER ELEMENT WINDER.CONSULTING ACTUARY Work Phone: [facility] Start: 09-18-2021 End: 09-18-2021 ambulatory [place] [facility] Work Phone: Hematology/Oncology Comment on above: Malignant neoplasm o f lower-inner quadrant of right breast of female, estrogen receptor positive (HCC) (Primary Dx) Start: 09-11-2021 Telephone encounter Pharmacist [facility] Comment on above: Anticoagulation Start: 09-11-2021 End: 09-11-2021 Patient encounter procedure Jayde Hebert MD Work Phone: OB/Gynecology Comment on above: Old laceration of ce rvix uteri (Primary Dx) Start: 09-10-2021 Telephone encounter Jayde Hebert MD Work Phone: OB/Gynecology Comment on above: Results Start: 09-06-2021 Telephone encounter Galina caballero MD Work Phone: [facility] [place] Comment on above: Patient Update Start: 09-05-2021 [...] on above: Pathology Start: 08-28-2021 E-mail encounter susan m caregiver Jayde Heebrt MD Work Phone: [facility] Start: 08-28-2021 End: 08-28-2021 Patient encounter procedure Jayde Hebert MD Work Phone: OB/Gynecology Comment on above: Old laceration of ce rvix uteri (Primary Dx); Abnormal uterine bleeding (AUB) Start: 08-26-2021 End: 08-26-2021 Emergency department patient visit [facility]gency [facility] Start: 08-23-2021 ambulatory Jayde jackson MD Work Phone: OB/Gynecology Comment on above: PMB (postmenopausal bleeding) (Primary Dx); Endometrial thickening on ultrasound Start: 08-23-2021 Patient encounter procedure Jayde Hebert MD Work Phone: [facility] Start: 08-23-2021 End: 08-23-2021 Admission to same day surgery center [facility] Start: 08-22-2021 Telephone encounter Jerrica [facility] Comment on above: Anticoagulation Tele phone Fu (Home INR result) Start: 08-17-2021 Telephone encounter Corinna Arenas joel Montes harmacy Ambulatory Telemanagement Comment on above: Anticoagulation [...] ultrasound Start: 08-15-2021 Telephone encounter An Ta APRN.CONSULTING ACTUARY Work Phone: [facility] [place] Comment on above: Results Start: 08-14-2021 Telephone encounter Nury uriarte Ambulatory Telemanagement Comment on above: Anticoagulation Tele phone Fu (Home INR result) Start: 08-12-2021 ambulatory Daysi Riddle RN [facility] Comment on above: UTI Start: 08-10-2021 Telephone encounter An Ta APRN.CONSULTING ACTUARY Work Phone: [facility] Comment on above: Results Start: 08-08-2021 End: 08-08-2021 Patient encounter procedure An Ta APRN.CONSULTING ACTUARY Work Phone: [facility] [place] Comment on above: History of recent ho spitalization (Primary Dx); Dysuria; Recurrent UTI; Cirrhosis of liver with ascites, unspecified hepatic cirrhosis type (HCC); Biliary colic Start: 07-31-2021 Telephone encounter Nury Montes harmcarlos Ambulatory Telemanagement Comment on above: Anticoagulation Tele phone Fu (Home INR result) Start: 07-27-2021 Telephone encounter Galina caballero MD Work Phone: [facility] [place] Comment on above: Agree to follow; Ord ers Start: 07-24-2021 E-mail encounter fro m caregiver [facility] Provider IVAN RODAS Start: 07-24-2021 Patient encounter procedure [facility] Provider Orthopaedics Comment on above: Appointment Reschedu le Start: 07-24-2021 Telephone encounter Haley varghese PAWilfrido Work Phone: Rheumatology Comment on above: Appointment Start: 07-24-2021 End: 07-24-2021 ambulatory [place] [facility] Work Phone: Hematology/Oncology Comment on above: Malignant neoplasm o f lower-inner quadrant of right breast of female, estrogen receptor positive (HCC) (Primary Dx) Start: 07-23-2021 End: 07-23-2021 Departed Referred [place] [id number] Start: 07-23-2021 Registered Referred [place] [id number] Start: 07-18-2021 Telephone encounter Marlin Ansari [facility] Ambulatory Telemanagement Comment on above: Anticoagulation Tele phone Fu Patient Update Start: 07-16-2021 End: 07-16-2021 Departed Referred [place] [id number] Start: 07-16-2021 Registered Referred [place] [id number] Start: 07-13-2021 End: 07-13-2021 Departed Referred [place] [id number] Start: 07-10-2021 ambulatory Galina Singh Work Phone: Internal Medicine [facility] Start: 07-06-2021 Telephone encounter Coreen haro MD Work Phone: Gastroenterology Comment on above: Results Start: 07-05-2021 Telephone encounter Galina caballero MD Work Phone: [facility] [place] Comment on above: Pain (back & legs / Pt update) Start: 07-05-2021 End: 07-05-2021 Patient encounter procedure Johnny Turk MD Work Phone: General Surgery Comment on above: Calculus of gallblad gary without cholecystitis without obstruction (Primary Dx); Secondary biliary cirrhosis (HCC) Start: 07-03-2021 Telephone encounter Johnny Turk MD Work Phone: General Surgery Comment on above: Patient Question (ga llbladder ER [facility]) Start: 07-03-2021 End: 07-03-2021 Patient encounter procedure Alma Cely NULLN.CONSULTING ACTUARY Work Phone: [facility] [place] Comment on above: Dysuria (Primary Dx) ; Right upper quadrant abdominal pain; Chronic anticoagulation Start: 07-02-2021 End: 07-03-2021 Emergency department patient visit [facility] Start: 06-26-2021 End: 06-26-2021 ambulatory [place] [facility] Work Phone: Hematology/Oncology Comment on above: Malignant neoplasm o f lower-inner quadrant of right breast of female, estrogen receptor positive (HCC) (Primary Dx) Start: 06-22-2021 Telephone encounter Corinna Arenas h P harmacy Ambulatory Telemanagement Comment on above: Anticoagulation Tele phone Fu (INR Home Test Result) Start: 06-20-2021 Telephone encounter Jerrica [facility] Ambulatory Telemanagement Comment on above: Anticoagulation Tele phone Fu (Home INR result) Start: 06-19-2021 Telephone encounter Basilia Cueto CONSULTING ACTUARY Work Phone: [facility] Comment on above: Results (urine cultu re) Start: 06-05-2021 End: 06-05-2021 Patient encounter procedure Aby Bruner DO Work Phone: Vascular Surgery Comment on above: Venous (peripheral) insufficiency (Primary Dx) Start: 05-23-2021 ambulatory Jerrica Tarcy RPh Phar y[facility] Ambulatory Telemanagement Comment on above: INR in therapeutic r jeannine Start: 05-23-2021 E-mail encounter fro m caregiver Jerrica Rothman [facility] [facility] CC DD BUILDING Start: 05-17-2021 End: 05-17-2021 Subsequent hospital visit by physician Yulissa [facility] Work Phone: Radiology Comment on above: Cough [R05.9] Start: 05-17-2021 ambulatory [facility] RT(R) Radiology Comment on above: Results Start: 05-17-2021 Patient encounter procedure [facility] RT(R) [facility] Start: 05-09-2021 ambulatory Jerrica Tarcy RPh [facility] Telemanagement Comment on above: INR in therapeutic r jeannine Start: 05-09-2021 E-mail encounter fro m caregiver Jerrica Rothman [facility] CC DD BUILDING Start: 02-07-2021 Telephone encounter Galina caballero MD Work Phone: Internal Medicine [place] Comment on above: Medication Question Start: 11-27-2020 End: 11-27-2020 Subsequent hospital visit by physician Yulissa [facility] Work Phone: Radiology Comment on above: Fever, unspecified f ever cause [R50.9] Start: 05-05-2020 End: 05-05-2020 Subsequent hospital visit by physician Xr [facility] Work Phone: Radiology Comment on above: Chronic cough [R05] Procedures Date Procedure Procedure Detail Performing Clinician Start: 09-03-2024 Plain x-ray of wrist Dr Frederick Iraheta MD Work Phone: Start: 08-30-2024 Vitamin D, 25-hydrox y measurement Dr. Galina Iraheta MD Work Phone: Comment on above: Vitamin D StatusDefi ciency: <20 ng/mL (50nmol/L)Insufficiency: 20-30 ng/mL (50-75 nmol/L)Sufficiency: 30-100 ng/mL (75-250 nmol/L)Toxicity: >100 ng/mL (>250 nmol/L) Start: 08-18-2024 XR forearm, [address] Galina Iraheta MD Work Phone: Start: 08-13-2024 Plain x-ray of humerus Dr. [...] above: Detection Limit = 5P erformed at: [facility] Lab[address] [id number] Director: Jeremiah Bates MD, Phone: [phone] Start: 04-05-2024 Measurement of renal function Dr. Galina Iraheta MD Work Phone: Comment on above: GFR Calc Start: 04-05-2024 Percentage plasma ce ll count Dr. Galina Iraheta MD Work Phone: Start: 03-05-2024 Follow-up visit Follow Up ELISABE TH RAY Start: 02-24-2024 Blood count complete auto&auto difrntl wbc Cassidy Arreola [employer] Work Phone: Start: 11-25-2023 Blood count complete auto&auto difrntl wbc Sal Bonilla DO Work Phone: Start: 08-19-2023 Blood count complete auto&auto difrntl wbc Sal Bonilla DO Work Phone: Start: 06-30-2023 Arthrocentesis aspir [...] ribs unilatera l 2 views Cassidy Arreola [employer] Work Phone: Start: 03-22-2022 Blood count complete [...] et rgnt auto w/o microscopy An Ta [employer] Work Phone: Start: 07-03-2021 Computed tomography of abdomen and pelvis with intravenous contrast Start: 05-17-2021 Radiologic exam ches t 2 views Darline Hurley [employer] Work Phone: Start: 01-12-2021 Antibody screen Comment on above: Performed By: #### 5 [id number] #### [facility] CLIA [id number] [address] [place], [place] [id number] [place] [address] OF [facility] Start: 01-09-2021 Colonoscopy Aby B alysha DO Work Phone: Start: 11-27-2020 Radiologic exam ches t 2 views Joann Haynes [employer] [employer] Work Phone: Start: 05-05-2020 Radiologic exam ches t 2 views Alma Shankar [employer] [employer] Work Phone: Measurement of occul t blood in stool specimen using immunoassay Urine culture Urine culture Dr. Galina caballero Work Phone: Plan of Treatment Date Care Activity Detail Author Start: 06-12-2027 Diabetes Screening Diabetes Screening [facility] Start: 02-23-2027 Diabetes Screening Diabetes Screening [facility] Start: 11-24-2026 Diabetes Screening Diabetes Screening [facility] Start: 07-03-2026 Diabetes Screening Diabetes Screening [facility] Start: 06-05-2025 Screening for osteoporosis Bone Density Screening [facility] Start: 03-14-2025 DIABETES SCREEN DIABETES SCREEN [facility] Start: 03-14-2025 Diabetes Screening Diabetes Screening [facility] Start: 11-23-2024 End: 11-23-2024 ambulatory 11/23/2024 11:40 AM EDT [facility] Rheumatology [address] [place] [id number] Thalia Monterroso MD [address] [place] [id number] ra f/u Rheumatology Comment on above: ra f/u Start: 11-15-2024 Influenza vaccination Influenza Vaccine (Season Ended) [facility] Start: 09-21-2024 End: 09-21-2024 ambulatory Hematology/Oncology Comment on above: 6 MO OV* CBC/IRON STUDIES(POR T)/OV TODAY Start: 09-03-2024 Plain x-ray of wrist Wrist min 3 Views [facility] Start: 09-03-2024 XR Wrist GE 3 Views [facility] Start: 08-27-2024 End: 08-27-2024 ambulatory 08/27/2024 10:00 AM EDT [facility] Rheumatology [address] [place] [id number] Thalia Monterroso MD [address] [place] [id number] RA Rheumatology Comment on above: RA Start: 08-18-2024 XR forearm, 2 views Forearm 2 Views [facility] Start: 08-18-2024 XR Radius and Ulna 2 Views [facility] Start: 08-13-2024 Plain x-ray of humerus Humerus min 2 Views [facility] Start: 08-13-2024 XR forearm, 2 views Forearm 2 Views [facility] Start: 08-13-2024 XR Humerus GE 2 Views [facility] Start: 08-13-2024 XR Radius and Ulna 2 Views [facility] Start: 08-13-2024 DIABETES SCREEN DIABETES SCREEN [facility] Start: 08-06-2024 Venous catheter care management [facility] Start: 2024 DIABETES SCREEN DIABETES SCREEN [facility] Start: 07-11-2024 DIABETES SCREEN DIABETES SCREEN [facility] Start: 07-06-2024 DIABETES SCREEN DIABETES SCREEN [facility] Start: 07-05-2024 DIABETES SCREEN DIABETES SCREEN [facility] Start: 06-11-2024 End: 06-11-2024 ambulatory 06/11/2024 2:00 PM EDT Infusion Center Hematology/Oncology [address] [place] [address] Wstr, [place] [facility] [address] [place] [address] port flush* Hematology/Oncology Comment on above: port flush* Start: 06-01-2024 End: 06-01-2024 Patient encounter procedure 06/01/2024 10:00 AM EDT Office Visit URO/Gynecology [address] [place] [address] Vikash Sylvester, [employer] [address] [place] [address] FOLLOWUP URO/Gynecology Comment on above: FOLLOWUP Start: 05-22-2024 DIABETES SCREEN DIABETES SCREEN [facility] Start: 05-21-2024 End: 05-21-2024 Patient encounter procedure 05/21/2024 11:40 AM EST Office Visit Cardiology [address] [address] Annmarie Shell MD [address] [place] [address] follow up Cardiology Comment on above: follow up Start: 05-19-2024 End: 05-19-2024 ambulatory 05/19/2024 11:00 AM EST Infusion Center Hematology/Oncology [address] [place] [address] 2ND Hematology/Oncology Comment on above: 2ND Start: 03-25-2024 End: 03-25-2024 ambulatory 03/25/2024 10:00 AM EST Visit (SP) Office Hematology/Oncology [address] [place] [address] 2ND Hematology/Oncology Comment on above: 2ND Start: 03-24-2024 End: 03-24-2024 ambulatory 03/24/2024 11:00 AM EST Infusion Center Hematology/Oncology [address] [place] [address] 2ND Hematology/Oncology Comment on above: 2ND Start: 03-19-2024 End: 03-19-2024 Patient encounter procedure Radiology Comment on above: Bilateral hip pain [M25.551, M25.552] CT Pelvis/Chest/Abd Start: 03-19-2024 End: 03-19-2024 ambulatory 03/19/2024 9:30 AM EST Infusion Center Hematology/Oncology [address] [place] [address] Wstr, [place] [facility] [address] [place] [address] CREATININE(S)(PORT)/KEEP ACCESSED FOR IMAGING* Hematology/Oncology Comment on above: CREATININE(S)(PORT)/KEEP ACCESSED FOR IM AGING* Start: 03-17-2024 Advance Directive Discussion Advance Directive Discussion [facility] Start: 03-12-2024 End: 03-12-2024 ambulatory 03/12/2024 2:30 PM EST Infusion Center Hematology/Oncology [address] [place] [address] 2nd Hematology/Oncology Comment on above: 2nd Start: 03-09-2024 End: 03-09-2024 Patient encounter procedure Cat Scan Comment on above: CT Pelvis/Chest/Abd Start: 03-08-2024 End: 03-08-2024 ambulatory 03/08/2024 3:00 PM EST Infusion Center Hematology/Oncology [address] [place] [address] 2nd Hematology/Oncology Comment on above: 2nd Start: 03-05-2024 End: 03-05-2024 ambulatory Rheumatology Comment on above: PRM f up 2nd Start: 03-03-2024 End: 03-03-2024 ambulatory 03/03/2024 3:00 PM EST Infusion Center Hematology/Oncology [address] [place] [address] 2nd Hematology/Oncology Comment on above: 2nd Start: 02-24-2024 End: 05-25-2024 CREATININE BLD CREATININE BLD Lab Routine Iron deficiency anemia due to chronic blood loss Bilateral hip pain Generalized abdominal pain Abdominal bloating Personal history of breast cancer Occult blood in stools Expected: 02/24/2024, Expires: 05/25/[address] [facility] Comment on above: Expected: 02/24/2024, Expires: 5 Start: 02-24-2024 End: 02-24-2024 ambulatory Hematology/Oncology Comment on above: CBC/iron studies (PORT)/OV TODAY* 6MO OV Start: 02-16-2024 End: 02-16-2024 Patient encounter procedure 02/16/2024 2:00 PM EST Office Visit Cardiology [address] [phone] Annmarie Shell MD [address] [place], [place] [phone] follow up Cardiology Comment on above: follow up Start: 01-29-2024 End: 01-29-2024 ambulatory 01/29/2024 11:00 AM EST Visit (SP) Office Hematology/Oncology [address] [place] [address] 2ND Hematology/Oncology Comment on above: 2ND Start: 01-28-2024 End: 01-28-2024 ambulatory Hematology/Oncology Comment on above: 2ND Start: 12-16-2023 End: 12-16-2023 Patient encounter procedure 12/16/2023 2:20 PM EDT Office Visit Cardiology [address] [phone] Cecilio Ibarra DO [address] [place], [place] [phone] 6 month follow up Cardiology Comment on above: 6 month follow up Start: 12-04-2023 End: 12-04-2023 [facility] Hematology/Oncology Comment on above: Q8WK RENFLEXIS(PORT)/ORDERING PROV DR RA Pena/MDCR* 2ND Start: 11-25-2023 End: 02-24-2024 Ferritin [Mass/volume] in Serum or Plasma [facility] Comment on above: Expected: 11/25/2023, Expires: Start: 11-25-2023 End: 02-24-2024 Iron and Iron binding capacity panel - Serum or Plasma [facility] Work Phone: Comment on above: Expected: 11/25/2023, Expires: Start: 11-25-2023 End: 11-25-2023 ambulatory 11/25/2023 1:30 PM EDT Infusion Center Hematology/Oncology [address] [place], [place] [phone] Wstr, [place] [facility] [address] [place] [address] CBC/iron studies (PORT)/OV TODAY* Hematology/Oncology Comment on above: CBC/iron studies (PORT)/OV TODAY* Start: 11-16-2023 Covid-19 Vaccine ( season) Covid-19 Vaccine () [facility] Start: 11-16-2023 Covid-19 Vaccine ( season) Covid-19 Vaccine ( season) [facility] Start: 11-16-2023 Influenza vaccination [facility] Start: 11-14-2023 End: 02-13-2024 25-hydroxyvitamin D3 [Mass/volume] in Serum or Plasma VITAMIN D 25 HYDROXY Lab Routine Rheumatoid arthritis involving multiple sites, unspecified whether rheumatoid factor present (HCC) Senile osteoporosis Expected: 11/14/2023, Expires: 02/13/2024 [facility] Work Phone: Comment on above: Expected: 11/14/2023, Expires: Start: 11-14-2023 End: 11-14-2023 ambulatory Rheumatology Comment on above: PRM f up Start: 10-09-2023 End: 10-09-2023 Infusion Center 10/09/2023 11:00 AM EDT Infusion Center Hematology/Oncology [address] [place], [place] [phone] Q6WK RENFLEXIS(PORT)/ORDERING PROV DR RAY/MDCR* THEN Q8WK Hematology/Oncology Comment on above: Q6WK RENFLEXIS(PORT)/ORDERING PROV DR RA Pena/MDCR* THEN Q8WK Start: 09-12-2023 End: 09-12-2023 ambulatory 09/12/2023 11:00 AM T Infusion Center Hematology/Oncology [address] [place] [address] daughter requested time Hematology/Oncology Comment on above: daughter requested time Start: 09-11-2023 End: 09-11-2023 Infusion Center 09/11/2023 9:[address] [facility] Infusion Center Hematology/Oncology [address] [place] [address] Q2WK RENFLEXIS(PORT)/ORDERING PROV DR MONTERROSO/NISH* wk0,2,6,then q8wk Hematology/Oncology Comment on above: Q2WK RENFLEXIS(PORT)/ORDERING PROV DR RA Pena/MARCIALR* wk0,2,6,then q8wk Start: 08-28-2023 End: 08-28-2023 Infusion Center 08/28/2023 11:[address] [facility] Infusion Center Hematology/Oncology [address] [place] [address] START Q0WK RENFLEXIS(PORT)/ORDERING PROV DR MONTERROSO/NISH* wk0,2,6,then q8wk Hematology/Oncology Comment on above: START Q0WK RENFLEXIS(PORT)/ORDERING PROV DR MONTERROSO/NISH* wk0,2,6,then q8wk Start: 08-19-2023 End: 08-19-2023 ambulatory Hematology/Oncology Comment on above: CBC/iron studies (PORT)/OV TODAY* 6MO OV(PORT)/LABS EA RLY* Start: 07-04-2023 End: 10-03-2023 BLOOD TB SCREEN [facility] Work Phone: Comment on above: Expected: 07/04/2023, Expires: Start: 07-04-2023 End: 10-03-2023 Chronic hepatitis differentiation between hepatitis B and C virus panel - Serum or Plasma [facility] Work Phone: Comment on above: Expected: 07/04/2023, Expires: 4 Start: 07-04-2023 End: 10-03-2023 Cyclic citrullinated peptide IgG Ab [Units/volume] in Serum or Plasma [facility] Work Phone: Comment on above: Expected: 07/04/2023, Expires: Start: 05-20-2023 End: 08-19-2023 CBC W Auto Differential panel - Blood CBC + DIFF Lab STAT Malignant neoplasm of lower-inner quadrant of right breast of female, estrogen receptor positive (HCC) Iron deficiency anemia due to chronic blood loss Expected: 05/20/2023, Expires: 08/19/2023 [facility] Work Phone: Comment on above: Expected: 05/20/2023, Expires: Start: 05-20-2023 End: 08-19-2023 Ferritin [Mass/volume] in Serum or Plasma FERRITIN BLD Lab Routine Malignant neoplasm of lower-inner quadrant of right breast of female, estrogen receptor positive (HCC) Iron deficiency anemia due to chronic blood loss Expected: 05/20/2023, Expires: 08/19/2023 [facility] Work Phone: Comment on above: Expected: 05/20/2023, Expires: Start: 05-20-2023 End: 08-19-2023 Iron and Iron binding capacity panel - Serum or Plasma IRON + TIBC Lab Routine Malignant neoplasm of lower-inner quadrant of right breast of female, estrogen receptor positive (HCC) Iron deficiency anemia due to chronic blood loss Expected: 05/20/2023, Expires: 08/19/2023 [facility] Work Phone: Comment on above: Expected: 05/20/2023, Expires: Start: 03-17-2023 Advance Directive Discussion Advance Directive Discussion [facility] Start: 11-17-2022 Urine microalbumin profile [facility] Start: 11-15-2022 Covid-19 Vaccine () Covid-19 Vaccine () [facility] Start: 11-15-2022 Influenza vaccination [facility] Start: 09-19-2022 End: 11-19-2022 CBC panel - Blood by Automated count CBC Lab Routine Paroxysmal atrial fibrillation (HCC) Rheumatic mitral regurgitation Essential hypertension Mixed hyperlipidemia Obstructive sleep apnea syndrome Shortness of breath PAF (paroxysmal atrial fibrillation) (HCC) SVT (supraventricular tachycardia) (HCC) Expected: 09/19/2022, Expires: 11/19/2022 [facility] Work Phone: Comment on above: Expected: 09/19/2022, Expires: 3 Start: 04-17-2022 End: 06-17-2022 CBC W Auto Differential panel - Blood CBC + DIFF Lab STAT Iron deficiency anemia due to chronic blood loss Malignant neoplasm of lower-inner quadrant of right breast of female, estrogen receptor positive (HCC) Expected: 04/17/2022, Expires: 06/17/2022 [facility] Work Phone: Comment on above: Expected: 04/17/2022, Expires: 3 Start: 04-17-2022 End: 06-17-2022 Ferritin [Mass/volume] in Serum or Plasma FERRITIN BLD Lab Routine Iron deficiency anemia due to chronic blood loss Malignant neoplasm of lower-inner quadrant of right breast of female, estrogen receptor positive (HCC) Expected: 04/17/2022, Expires: 06/17/2022 [facility] Work Phone: Comment on above: Expected: 04/17/2022, Expires: 3 Start: 04-17-2022 End: 06-17-2022 Iron and Iron binding capacity panel - Serum or Plasma IRON + TIBC Lab Routine Iron deficiency anemia due to chronic blood loss Malignant neoplasm of lower-inner quadrant of right breast of female, estrogen receptor positive (HCC) Expected: 04/17/2022, Expires: 06/17/2022 [facility] Work Phone: Comment on above: Expected: 04/17/2022, Expires: 3 Start: 04-17-2022 End: 06-17-2022 RETIC COUNT RETIC COUNT Lab Routine Iron deficiency anemia due to chronic blood loss Malignant neoplasm of lower-inner quadrant of right breast of female, estrogen receptor positive (HCC) Expected: 04/17/2022, Expires: 06/17/2022 [facility] Work Phone: Comment on above: Expected: 04/17/2022, Expires: 3 Start: 04-17-2022 End: 06-17-2022 Transferrin receptor.soluble [Mass/volume] in Serum or Plasma [employer] Lab Routine Iron deficiency anemia due to chronic blood loss Malignant neoplasm of lower-inner quadrant of right breast of female, estrogen receptor positive (HCC) Expected: 04/17/2022, Expires: 06/17/2022 [facility] Work Phone: Comment on above: Expected: 04/17/2022, Expires: 3 Start: 03-17-2022 ADVANCE DIRECTIVE DISCUSSION ADVANCE DIRECTIVE DISCUSSION [facility] Start: 03-12-2022 End: 05-12-2022 CBC W Ordered Manual Differential panel - Blood PATHOLOGIST INTERPRETATION WITH CBC AND DIFF Lab Routine Iron deficiency anemia due to chronic blood loss Expected: 03/12/2022, Expires: 05/12/2022 [facility] Work Phone: Comment on above: Expected: 03/12/2022, Expires: 3 Start: 03-06-2022 Administration of blood product [facility] Start: 03-06-2022 [facility] Start: 01-09-2022 Colonoscopy [address] [facility] Start: 01-09-2022 Screening for malignant neoplasm of colon Colonoscopy [facility] Start: 12-28-2021 Administration of blood product [facility] Start: 11-15-2021 Influenza vaccination INFLUENZA (#1) [facility] Start: 10-29-2021 End: 12-29-2021 CBC W Auto Differential panel - Blood CBC + DIFF Lab Routine BRBPR (bright red blood per rectum) Expected: 10/29/2021, Expires: 12/29/2021 [facility] Work Phone: Comment on above: Expected: 10/29/2021, Expires: 2 Start: 10-18-2021 [facility] Work Phone: Start: 10-18-2021 Administration of blood product [facility] Work Phone: Start: 10-18-2021 [facility] Work Phone: Start: 10-15-2021 End: 12-15-2021 CBC W Auto Differential panel - Blood CBC + DIFF Lab Routine Chronic anticoagulation Expected: 10/15/2021, Expires: 12/15/2021 [facility] Work Phone: Comment on above: Expected: 10/15/2021, Expires: 2 Start: 10-15-2021 End: 12-15-2021 PT panel - Platelet poor plasma by Coagulation assay PROTHROMBIN TIME/PT Lab Routine Chronic anticoagulation Expected: 10/15/2021, Expires: 12/15/2021 [facility] Work Phone: Comment on above: Expected: 10/15/2021, Expires: 2 Start: 08-23-2021 Anes hysteroscopy&/hysterosal pingography w/bx ANESTH HYSTEROSCOPE/GRAPH [facility] Work Phone: Start: 08-23-2021 Hysteroscopy bx endometrium&/polypc w/wo d&c HYSTEROSCOPY BIOPSY [facility] Work Phone: Start: 08-23-2021 Patient discharge [facility] Work Phone: Start: 08-23-2021 Ambulation without limitation [facility] Work Phone: Start: 08-23-2021 Medical regimen orders management [facility] Work Phone: Start: 08-23-2021 Medication education [facility] Work Phone: Start: 08-23-2021 Taking patient vital signs [facility] Work Phone: Start: 08-23-2021 Vital signs measurements [facility] Work Phone: Start: 08-23-2021 [facility] Work Phone: Start: 08-10-2021 End: 10-10-2021 Bacteria identified in Urine by Culture URINE CULTURE Microbiology Routine Dysuria Expected: 08/10/2021, Expires: 10/10/2021 [facility] Work Phone: Comment on above: Expected: 08/10/2021, Expires: Start: 04-18-2021 Screening for malignant neoplasm of cervix Cervical Cancer Screening [facility] Start: 03-24-2021 COVID-19 VACCINE (4 - Booster for Moderna series) COVID-19 VACCINE (4 - Booster for Moderna series) [facility] Start: 03-17-2021 ADVANCE DIRECTIVE DISCUSSION ADVANCE DIRECTIVE DISCUSSION [facility] Start: 01-17-2021 COVID-19 VACCINE (4 - Booster for Moderna series) COVID-19 VACCINE (4 - Booster for Moderna series) [facility] Start: 01-17-2021 COVID-19 VACCINE (4 - Moderna series) COVID-19 VACCINE (4 - Moderna series) [facility] Start: 08-02-2011 Shingrix Vaccine (1 of 2) Shingrix Vaccine (1 of 2) [facility] Start: 08-02-2011 SHINGRIX VACCINE (2 of 3) SHINGRIX VACCINE (2 of 3) [facility] Start: 07-13-2011 RSV Vaccine (1 - 1-dose 75+ series) RSV Vaccine (1 - 1-dose 75+ series) [facility] Start: 09-15-2003 Medicare Annual Wellness Visit Medicare Annual Wellness Visit [facility] Start: 1996 HEPATITIS B (1 of 3 - Risk 3-dose series) HEPATITIS B (1 of 3 - Risk 3-dose series) [facility] Start: 1996 Hepatitis B Vaccine (1 of 3 - Risk 3-dose series) Hepatitis B Vaccine (1 of 3 - Risk 3-dose series) [facility] Start: 1996 RSV Vaccine (1 - 1-dose 60+ series) RSV Vaccine (1 - 1-dose 60+ series) [facility] Start: 07-13-1955 HEPATITIS A (1 of 2 - Risk 2-dose series) HEPATITIS A (1 of 2 - Risk 2-dose series) [facility] Start: 07-13-1955 Hepatitis A Vaccine (1 of 2 - Risk 2-dose series) Hepatitis A Vaccine (1 of 2 - Risk 2-dose series) [facility] Start: 07-13-1955 HEPATITIS B (1 of 3 - Risk 3-dose series) HEPATITIS B (1 of 3 - Risk 3-dose series) [facility] Start: 1954 Anxiety Screening Anxiety Screening [facility] Start: 1937 HEPATITIS A (1 of 2 - Risk 2-dose series) [facility] 25-hydroxyvitamin D3 [Mass/volume] in Serum or Plasma VITAMIN D 25 HYDROXY Lab Routine Rheumatoid arthritis involving multiple sites, unspecified whether rheumatoid factor present (HCC) Senile osteoporosis 11/25/2023 1:46 PM EDT [facility] Work Phone: Bacteria identified in Urine by Culture URINE CULTURE Microbiology Routine Dysuria Ordered: 08/08/2021 [facility] Work Phone: Comment on above: Ordered: 08/08/2021 Bacteria identified in Urine by Culture URINE CULTURE Microbiology Routine Recurrent UTI Mixed stress and urge urinary incontinence 08/30/2021 2:06 PM EDT [facility] Work Phone: End: 09-26-2022 Bacteria identified in Urine by Culture URINE CULTURE Microbiology Routine Recurrent UTI 12 Occurrences starting 09/26/2021 until 09/26/2022 [facility] Work Phone: Comment on above: 12 Occurrences starting 09/26/2021 until 09/26/2022 Bacteria identified in Urine by Culture [facility]rine Culture [facility] [facility] Work Phone: End: 11-13-2024 C reactive protein [Mass/volume] in Serum or Plasma C-REACTIVE PROTEIN Lab Routine Rheumatoid arthritis involving multiple sites, unspecified whether rheumatoid factor present (HCC) Senile osteoporosis Every 3 months for 5 Occurrences starting 11/14/2023 until 11/13/[address] [facility] Comment on above: Every 3 months for 5 Occurrences startin g 11/14/2023 until 11/13/2024 C reactive protein [Mass/volume] in Serum or Plasma C-REACTIVE PROTEIN Lab Routine Rheumatoid arthritis involving multiple sites, unspecified whether rheumatoid factor present (HCC) Senile osteoporosis 11/25/2023 1:46 PM EDT [facility] C reactive protein [Mass/volume] in Serum or Plasma C-REACTIVE PROTEIN Lab Routine Rheumatoid arthritis involving multiple sites, unspecified whether rheumatoid factor present (HCC) Senile osteoporosis 02/24/2024 1:28 PM EST [facility] Work Phone: C reactive protein [Mass/volume] in Serum or Plasma C-REACTIVE PROTEIN Lab Routine Rheumatoid arthritis involving multiple sites, unspecified whether rheumatoid factor present (HCC) Senile osteoporosis 06/11/2024 1:54 PM EDT [facility] End: 11-13-2024 CBC W Auto Differential panel - Blood COMPLETE BLOOD COUNT AND DIFFERENTIAL Lab Routine Rheumatoid arthritis involving multiple sites, unspecified whether rheumatoid factor present (HCC) Senile osteoporosis Every 3 months for 5 Occurrences starting 11/14/2023 until 11/13/[address] [facility] Comment on above: Every 3 months for 5 Occurrences startin g 11/14/2023 until 11/13/2024 End: 11-13-2024 Comprehensive metabolic 2000 panel - Serum or Plasma COMPREHENSIVE METABOLIC PANEL Lab Routine Rheumatoid arthritis involving multiple sites, unspecified whether rheumatoid factor present (HCC) Senile osteoporosis Every 3 months for 5 Occurrences starting 11/14/2023 until 11/13/[address] [facility] Comment on above: Every 3 months for 5 Occurrences startin g 11/14/2023 until 11/13/2024 End: 03-25-2025 CT Abdomen and Pelvis W contrast IV CT ABD/PEL W IVCON Radiology Routine Iron deficiency anemia due to chronic blood loss Bilateral hip pain Generalized abdominal pain Abdominal bloating Personal history of breast cancer Occult blood in stools 1 Occurrences starting 02/24/2024 until 03/25/[address] [facility] Comment on above: 1 Occurrences starting 02/24/2024 until 03/25/2025 CT Abdomen and Pelvi s W contrast IV CT ABD/PEL W IVCON Radiology Routine Iron deficiency anemia due to chronic blood loss Bilateral hip pain Generalized abdominal pain Abdominal bloating Personal history of breast cancer Occult blood in stools 03/19/2024 11:42 AM EST [facility] Work Phone: End: 03-25-2025 CT Chest W contrast IV CT CHEST W IVCON Radiology Routine Iron deficiency anemia due to chronic blood loss Bilateral hip pain Generalized abdominal pain Abdominal bloating Personal history of breast cancer Occult blood in stools 1 Occurrences starting 02/24/2024 until 03/25/2025 [facility] Comment on above: 1 Occurrences starting 02/24/2024 until 03/25/2025 CT Chest W contrast IV CT CHEST W IVCON Radiology Routine Iron deficiency anemia due to chronic blood loss Bilateral hip pain Generalized abdominal pain Abdominal bloating Personal history of breast cancer Occult blood in stools 03/19/2024 11:42 AM EST [facility] DXA Skeletal system.axial Views for bone density DXA-AXIAL SKELETON Radiology Routine On prednisone therapy Screening for osteoporosis 06/06/2023 2:38 PM EDT [facility] Work Phone: End: 09-05-2022 ECG COMPLETE [facility] Work Phone: Comment on above: 1 Occurrences starting 09/05/2021 until 09/05/2022 End: 11-13-2024 Erythrocyte sedimentation rate SEDIMENTATION RATE, WESTERGREN Lab Routine Rheumatoid arthritis involving multiple sites, unspecified whether rheumatoid factor present (HCC) Senile osteoporosis Every 3 months for 5 Occurrences starting 11/14/2023 until 11/13/[address] [facility] Comment on above: Every 3 months for 5 Occurrences startin g 11/14/2023 until 11/13/2024 Erythrocyte sedimentation rate SEDIMENTATION RATE, WESTERGREN Lab Routine Rheumatoid arthritis involving multiple sites, unspecified whether rheumatoid factor present (HCC) Senile osteoporosis 06/11/2024 1:54 PM EDT [facility] Work Phone: Ferritin [Mass/volum e] in Serum or Plasma FERRITIN Lab Routine Malignant neoplasm of lower-inner quadrant of right breast of female, estrogen receptor positive (HCC) Iron deficiency anemia due to chronic blood loss 02/24/2024 1:28 PM EST [facility] Work Phone: Iron and Iron bindin g capacity panel - Serum or Plasma IRON AND TIBC Lab Routine Malignant neoplasm of lower-inner quadrant of right breast of female, estrogen receptor positive (HCC) Iron deficiency anemia due to chronic blood loss 02/24/2024 1:28 PM EST [facility] OCCULT BLD EXAM-DIAG OCCULT BLD EXAM-DIAG Microbiology Routine Iron deficiency anemia due to chronic blood loss Ordered: 03/12/2022 [facility] Work Phone: Comment on above: Ordered: 03/12/2022 PATHOLOGIST INTERPRETATION CBC/DIFF PATHOLOGIST INTERPRETATION CBC/DIFF Lab STAT Iron deficiency anemia due to chronic blood loss 03/22/2022 1:36 PM EST [facility] Work Phone: Patient Education [facility] Work Phone: Patient referral [facility] Work Phone: PT panel - Platelet poor plasma by Coagulation assay PROTHROMBIN TIME/PT Lab Routine Chronic anticoagulation 10/16/2021 9:44 AM EDT [facility] Work Phone: Urinalysis complete panel - Urine [facility] Work Phone: End: 03-25-2025 XR HIP BILATERAL 5V PEL/AP/LAT EACH HIP XR HIP BILATERAL 5V PEL/AP/LAT EACH HIP Radiology Routine Bilateral hip pain 1 Occurrences starting 02/24/2024 until 03/25/2025 [facility] Work Phone: Comment on above: 1 Occurrences starting 02/24/2024 until 03/25/2025 XR HIP BILATERAL 5V PEL/AP/LAT EACH HIP XR HIP BILATERAL 5V PEL/AP/LAT EACH HIP Radiology Routine Bilateral hip pain 03/19/2024 10:00 AM EST [facility] Work Phone: End: 07-09-2024 XR Knee - bilateral 4 Views XR KNEE GENERAL 4V AP BOTH/PA BOTH/LAT/MERC BILATERAL Radiology Routine Primary osteoarthritis of both knees 1 Occurrences starting 06/10/2023 until 07/09/2024 [facility] Work Phone: Comment on above: 1 Occurrences starting 06/10/2023 until 07/09/2024 XR Knee - bilateral 4 Views XR KNEE GENERAL 4V AP BOTH/PA BOTH/LAT/MERC BILATERAL Radiology Routine Primary osteoarthritis of both knees 06/18/2023 8:26 AM EDT [facility] Work Phone: End: 07-05-2023 XR RIBS 2V AP/OBL RIGHT XR RIBS 2V AP/OBL RIGHT Radiology Routine Personal history of breast cancer Rib pain on right side 1 Occurrences starting 06/05/2022 until 07/05/2023 [facility] Work Phone: Comment on above: 1 Occurrences starting 06/05/2022 until 07/05/2023 XR RIBS 2V AP/OBL RIGHT XR RIBS 2V AP/OBL RIGHT Radiology Routine Personal history of breast cancer Rib pain on right side 06/05/2022 12:04 PM EDT [facility] Work Phone: End: 12-25-2023 XR WRIST GENERAL 3V PA/LAT/OBL RIGHT XR WRIST GENERAL 3V PA/LAT/OBL RIGHT Radiology Routine Pain in right wrist 1 Occurrences starting 11/25/2022 until 12/25/2023 [facility] Work Phone: Comment on above: 1 Occurrences starting 11/25/2022 until 12/25/2023 XR WRIST GENERAL 3V PA/LAT/OBL RIGHT XR WRIST GENERAL 3V PA/LAT/OBL RIGHT Radiology Routine Pain in right wrist 11/25/2022 2:29 PM EDT [facility] Work Phone: [facility] Immunizations Immunization Date Immunization Notes Care Provider Kevin evans 01-18-2021 influenza, high-dose , quadrivalent vaccine (FLUZONE HIGH DOSE QUADRIVALENT) Aby Bruner DO Work Phone: [facility] Work Phone: 01-18-2021 influenza virus vaccine, unspecified formulation Stella Preciado PA-C Work Phone: [facility] 11-22-2020 COVID-19 vaccine, ag e 12+ yr (PFIZER-BIONTECH - PURPLE TOP) Aby Bruner DO Work Phone: [facility] 05-04-2020 COVID-19 vaccine, fu ll dose (MODERNA) Aby Bruner DO Work Phone: [facility] 04-06-2020 COVID-19 vaccine, fu ll dose (MODERNA) Aby Bruner DO Work Phone: [facility] 12-18-2019 influenza, high-dose , quadrivalent vaccine (FLUZONE HIGH DOSE QUADRIVALENT) Aby Bruner DO Work Phone: [facility] 12-30-2018 influenza, high dose seasonal, preservative-free Aby Bruner DO Work Phone: [facility] Work Phone: 12-09-2017 influenza, high dose seasonal, preservative-free Aby Bruner DO Work Phone: [facility] 12-02-2016 influenza, high dose seasonal, preservative-free Aby Bruner DO Work Phone: [facility] Work Phone: 12-05-2015 influenza, high dose seasonal, preservative-free Aby Bruner DO Work Phone: [facility] 01-10-2015 pneumococcal conjuga te vaccine, 13 valent Ayb Bruner DO Work Phone: [facility] Work Phone: 12-12-2014 influenza, high dose seasonal, preservative-free Aby Bruner DO Work Phone: [facility] 12-22-2013 influenza, seasonal, injectable Aby Bruner DO Work Phone: [facility] 01-09-2013 influenza virus vaccine, unspecified formulation Aby Bruner DO Work Phone: [facility] Work Phone: 11-17-2012 tetanus toxoid, redu issac diphtheria toxoid, and acellular pertussis vaccine, adsorbed Aby Bruner DO Work Phone: [facility] 01-16-2012 influenza virus vaccine, unspecified formulation Aby Bruner DO Work Phone: [facility] 06-07-2011 zoster vaccine, live Opal Bruner DO Work Phone: [facility] 02-01-2011 influenza virus vaccine, unspecified formulation Aby Bruner DO Work Phone: [facility] Work Phone: 01-29-2010 influenza virus vaccine, unspecified formulation Aby Bruner DO Work Phone: [facility] 12-24-2008 influenza virus vaccine, unspecified formulation Aby Bruner DO Work Phone: [facility] 01-20-2008 influenza virus vaccine, unspecified formulation Aby Bruner DO Work Phone: [facility] 12-21-2007 pneumococcal polysaccharide vaccine, 23 valent Aby Bruner DO Work Phone: [facility] Work Phone: 01-14-2007 influenza virus vaccine, unspecified formulation Aby Bruner DO Work Phone: [facility] Work Phone: 01-27-2006 influenza virus vaccine, unspecified formulation Aby Bruner DO Work Phone: [facility] 01-24-2005 influenza virus vaccine, unspecified formulation Aby Bruner DO Work Phone: [facility] Work Phone: 05-15-2002 tetanus and diphther ia toxoids, adsorbed, preservative free, for adult use (2 Lf of tetanus toxoid and 2 Lf of diphtheria toxoid) Aby Bruner DO Work Phone: [facility] Work Phone: NEGATED: Highlighted row has not occurred!01-12-2021 influenza, high-dose, quadrivalent vaccine (FLUZONE HIGH DOSE QUADRIVALENT) Aby Bruner DO Work Phone: [facility] Comment on above: Deferred: Patient Re fused - states she wants to wait to get it at scheduled appt in Nov Payers Date Payer Category Payer Medicaid [id number] 2024 Medicaid [place]ICAID [id number] 2023 Self-pay [id number] 2016 [facility] DICARE SUPPLEMENT [id number] 2016 Unknown ANTHEM ANTHEM ME DICARE SUPPLEMENT [id number] 2016-Present [phone] [address] [place] [address] Indemnity [id number] 2016 Unknown ANTHEM ANTHEM ME DICARE SUPPLEMENT [id number] 2016-Present [phone] [address] [place] [address] Indemnity [id number] 2003 Medicare MEDICARE MEDICAR E A AND B [id number] 2003-Present [phone] [place] [address] Medicare [id number] 2003 Medicare [id number] 2003 Unknown [id number] 2003 Medicare [id number] Unknown [id number] 2.840.1.152557.3.579.2. 462 Unknown [id number] 2.840.1.852655.3.579.2. 462 Unknown [id number] 2.840.1.823000.3.579.2. 462 Unknown [id number] 2.840.1.425552.3.579.2. 462 Unknown [id number] 2.840.1.274770.3.579.2. 462 Unknown [id number] 2.16.840.1.796746.3.579.2. 462 Unknown [id number] 2.16.840.1.523364.3.579.2. 462 Unknown [id number] 2.16.840.1.408497.3.579.2. 462 Unknown [id number] 2.16840.1.942538.3.579.2. 462 Unknown [id number] 2.16.840.1.705939.3.579.2. 462 Unknown [id number] 2.840.1.908142.3.579.2. 462 Unknown [id number] 2.840.1.865898.3.579.2. 462 Unknown [id number] 2.840.1.174960.3.579.2. 462 Unknown [id number] 2.840.1.062237.3.579.2. 462 Unknown [id number] 2.840.1.810478.3.579.2. 462 Unknown [id number] 2.840.1.690882.3.579.2. 462 Unknown [id number] 2.840.1.417689.3.579.2. 462 Unknown [id number] 2.840.1.170344.3.579.2. 462 Unknown [id number] 2.840.1.983525.3.579.2. 462 Unknown [id number] 2.840.1.588987.3.579.2. 462 Unknown [id number] 2.840.1.465012.3.579.2. 462 Unknown [id number] 2.840.1.353489.3.579.2. 462 Unknown [id number] 2.840.1.628578.3.579.2. 462 Unknown [id number] 2.16.840.1.871951.3.579.2. 462 Unknown [id number] 2.16.840.1.792723.3.579.2. 462 Unknown [id number] 2.16.840.1.950936.3.579.2. 462 Unknown [id number] 2.16.840.1.905184.3.579.2. 462 Unknown [id number] 2.16.840.1.100129.3.579.2. 462 Unknown [id number] 2.16.840.1.491307.3.579.2. 462 Unknown [id number] 2.16.840.1.346180.3.579.2. 462 Unknown [id number] 2.16.840.1.434838.3.579.2. 462 Unknown [id number] 2.16.840.1.619948.3.579.2. 462 Unknown [id number] 2.16.840.1.842769.3.579.2. 462 Unknown [id number] 2.16.840.1.700587.3.579.2. 462 Unknown [id number] 2.16.840.1.658318.3.579.2. 462 Unknown [id number] 2.16.840.1.395151.3.579.2. 462 Social History Date Type Detail Facility Start: 01-02-2022 End: 09-07-2024 Tobacco smoking status MAIS Never smoked tobacco [facility] Start: 06-05-2021 End: 02-27-2024 Alcohol intake Current non-drinker of alcohol (finding) [facility] Start: 01-23-2020 End: 01-18-2021 History SDOH Alcohol Frequency [address] [facility] Start: 01-23-2020 History SDOH Social Connections Phone [address] [facility] Start: 01-23-2020 History SDOH Social Connections Get Together [address] [facility] Start: 01-23-2020 History SDOH Social Connections Living [address] [facility] Start: 01-23-2020 End: 01-18-2021 History SDOH Stress [address] [facility] Start: 01-23-2020 Education [address] [facility] Start: 1935 Sex Assigned At Female C [facility] Work Phone: Start: 04-05-2020 End: 01-21-2022 Exposure to SARS-CoV-2 (event) Not sure [facility] Start: 06-09-2021 End: 08-08-2021 Exposure to SARS-CoV-2 (event) Unable to assess [facility] Work Phone: Start: 07-03-2021 End: 04-07-2023 Tobacco smoking status NHIS Unknown if ever smoked [facility] Start: 02-15-2021 None [facility] Start: 02-15-2021 Non-smoker [facility] Start: 01-02-2022 Tobacco use and exposure Smokeless tobacco non-user [facility] Start: 01-23-2020 End: 07-15-2023 History of Social function [facility] Start: 01-23-2020 End: 07-15-2023 Social connection and isolation panel [facility] How often do you get together with friends or relatives? Patient refused [facility] Are you now , , , , never or living with a partner? [facility] How often to you hav e a drink containing alcohol? Never [facility] Do you feel stress - tense, restless, nervous, or anxious, or unable to sleep at night because your mind is troubled all the time - these days [OSQ] Only a little [facility] (I/We) worried wheth er (my/our) food would run out before (I/we) got money to buy more. Never true [facility] In the past 12 month s, was there a time when you were not able to pay the mortgage or rent on time? No [facility] Start: 06-06-2018 Gender identity Identifies as female gender (finding) [facility] Start: 07-28-2019 Sexual orientation Heterosexual (anna lama) [facility] Work Phone: Start: 06-18-2024 End: 06-18-2024 Sex Female (finding) [facility] Goals Date Patient Goal Desired Activity /State Functional Status Date Assessment Result Facility 08-13-2021 Are you deaf, or do you have serious difficulty hearing No 08/13/2021 2:10 PM EDT Tasha Lovell APRN.CNP No [facility] Work Phone: 08-13-2021 Are you blind, or do you have serious difficulty seeing, even when wearing glasses No 08/13/2021 2:10 PM EDT Tasha Lovell APRN.CNP No [facility] 08-13-2021 Do you have serious difficulty walking or climbing stairs No 08/13/2021 2:10 PM EDT Tasha Lovell APRN.CNP No [facility] 08-13-2021 Do you have difficul ty dressing or bathing No 08/13/2021 2:10 PM EDT Tasha Lovell APRN.CNP No [facility] 08-13-2021 Because of a physica l, mental, or emotional condition, do you have difficulty doing errands alone such as visiting a physician's office or shopping No 08/13/2021 2:10 PM EDT Tasha Lovell APRN.CNP No [facility] Mental Status Date Assessment Result Facility 03-06-2022 Cognitive function Voice/Name [facility] Work Phone: 12-28-2021 Cognitive function Level Of Cons ciousness Awake;Alert;Follows Commands [facility] Work Phone: 10-18-2021 Cognitive function Level Of Cons ciousness Awake;Alert;Appropriate;Fol lows Commands [facility] Work Phone: 08-23-2021 Cognitive function Level Of Cons ciousness Awake;Alert;Appropriate [facility] Work Phone: 08-23-2021 Cognitive function Voice/Name [facility] Work Phone: 08-13-2021 Because of a physica l, mental, or emotional condition, do you have serious difficulty concentrating, remembering, or making decisions No 08/13/2021 2:10 PM EDT Tasha Lovell, DE [employer] W[employer]ER.CONSULTING ACTUARY No [facility] Clinical Notes 05-05-2020 to 08-30-2024 Telephone Encounter - Yoly Hurley - 08/30/2024 8:14 AM EDTTelephone Encounter - Yoly Hurley - 08/30/2024 8:14 AM Thalia Rucker MD - 08/27/2024 10:07 AM EDT Note Date & Type Note Facility 08-30-2024 Telephone encount er Note August 30, 2024 8:14 AM 1st attempt to schedule - Left detailed voicemail message If patient calls back please help schedule [address] follow up [address]. Monterroso (EST) or Aileen (New) Postponed for 2nd attempt [facility] 08-30-2024 Miscellaneous Notes Formattin g of this note might be different from the original. August 30, 2024 8:14 AM 1st attempt to schedule - Left detailed voicemail message If patient calls back please help schedule 3 mo follow up with Dr. Monterroso (EST) or Aileen (New) Postponed for 2nd attempt documented in this encounter [facility] 08-27-2024 History of Presen t illness Narrative [...] visit. Either the patient or their legal hardware supplies sales representative has been informed of the risks [...] Take 1 tablet by mouth once daily. 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 The DINING HOST at the care home increased her prednisone from 20 to 40 [...] of starting prolia documented in this encounter [facility] 08-13-2024 Evaluation note Diagnosis Onset Date Resolution Fall acute August 13, 2024 2:06pm Fx distal ulna-closed acute August 13, 2024 2:06pm [facility] Work Phone: 1(840) 971-746705-30-2025 Evaluation note* Diagnosis Onset Date Resolution Status Admit Date Fall acute August 13, 2024 2:06pm Fx distal ulna-closed acute August 13, 2024 2:06pm Fall acute August 18, 2024 2:33pm Fx distal ulna-closed acute Aug 2:33pm [facility] Work Phone: 1(552) 428-511905-30-2025 Evaluation note* Diagnosis Onset Date Resolution Status Admit Date Fall acute August 13, 2024 2:06pm Fx distal ulna-closed acute August 13, 2024 2:06pm Fall acute August 18, 2024 2:33pm Fx distal ulna-closed acute Aug 2:33pm Fall acute September 03 1:55pm Fx distal ulna-closed acute Fernando 2024 1:55pm [facility] Work Phone: 1(992) 289-950805-30-2025 Evaluation note* Diagnosis Onset Date Resolution Status Admit Date Fall acute August 13, 2024 2:06pm Fx distal ulna-closed acute August 13, 2024 2:06pm Fall acute August 18, 2024 2:33pm Fx distal ulna-closed acute Aug 2:33pm Fall acute September 03 1:55pm Fx distal ulna-closed acute Aug 1:55pm Change in bowel habits acute Ju ne 2024 2:24pm [facility] Work Phone: 1(418) 442-844605-25-2025 Radiology Diagnostic study note [facility] Imaging Services [address] [place], [place] [address] CT Abd/Pelvis W/WO Contrast MR#: [id number] Acct: [id number] Name: CHRISTIAN LANDRUM Rep #: [id number] : [id number] F 89 From: Celi Man MD PCP: Dr. Reji Reyna MD Status: R EG CLI Study:CT Abd/Pelvis W/WO Contrast Date of Exa m: 08/06/24 Exam# [id number] Ordering Dr: Hiwot Abdullahi MD PROCEDURE: CT [...] the stomach suggestive of gastritis. Reading [facility]: Dr. Reji Reyna MD; Dr. Hiwot Abdullahi MD ~ Glue Maker: Signed [facility]04-02-2025 Telephone encounter Note* Telephone Encounter - Daly Kaiser LPN - 06/16/2024 3:[address] Monterroso please advise outside labs thank you. Daly Kaiser LPN June 16, 2024 3:40 PM Media Information File Link Scan on 06/16/2024 3:39 PM by Daly Kaiser LPN: OUTSIDE LAB RESULTS 06/16/[address] [facility]04-02-2025 Miscellaneous Notes* Telephone Encounter - Daly Kaiser LPN - 06/16/2024 3:[address] Monterroso please advise outside labs thank you. Daly Kaiser LPN June 16, 2024 3:40 PM Media Information File Link Scan on 06/16/2024 3:39 PM by Daly Kaiser LPN: OUTSIDE LAB RESULTS 06/16/24 [facility] History of Present illness Narrative* Thalia Monterroso [...] visit. Either the patient or their legal hardware supplies sales representative has been informed of the risks and benefits of -- and alternatives to -- treatment through a remote evaluation andconsents to proceed with the evaluation remotely. SUBJECTIVE: CC: routine follow up for RA (CCP 44, RF neg, non-erosive) Last seen: 03/05/2024 (with Thalia Ray) Current treatment: Prednisone 20 mg/day Prior Medications: [...] 2012 (elevated ESR and CRP at the [facility]). She started to develop symptoms of inflammatory [...] Take 1 tablet by mouth once daily. [id number] D3 500 mg-5 mcg (200 unit) per [...] so we stopped these. Continue tramadol by [facility] care Avoid hepatotoxic meds (methotrexate/Arava) 2. Senile [...] option for her to get at her care home. We will discuss more next time 3. [...] last infusion was 01/28/24 [address]Mer[address] Health [address]. [facility]'S [facility]01-03-2025 History of Present illness Narrative* Afua AndresuegerKamila, RT(R) - 03/19/2024 11:00 AM EST Radiology [...] PATIENT PRESENTS WITH AN IMPLANTABLE OR ATTACHED RCIS: No ALLERGIES: Reviewed and unchanged CONTRAST ALLERGY: [...] PERIPHERAL IV DATA: power port accessed by [employer] RADIOLOGY DEPARTMENT: CT; Exam(s) Completed: Chest Abdomen Pelvis SIGNATURE: RT Rajinder(R) PATIENT NAME: Christian Landrum DATE: March 19, 2024 TIME: 2:31 PM documented in this encounterMercy Health St. [facility]01-03-2025 History of Present illness Narrative* Page Ruiz RT(Palma) - 03/19/2024 9:50 AM EST Radiology Service [...] PATIENT PRESENTS WITH AN IMPLANTABLE OR ATTACHED RCIS: No RADIOLOGY DEPARTMENT: General X-ray: Exam(s) Completed: Pelvis X-Ray: Pelvis with Hip Bilateral PERIPHERAL IV DATA: Not applicable SIGNED BY: RT Nithin(R) March 19, 2024 10:49 AM documented in this encounterMercy Health St. [facility]12-27-2024 History of Present illness Narrative* Vania Horan RN - 03/12/2024 2:26 PM EST Patient's daughter states mom had some pain, aches, after her last Iron when it was pushed in Infusing this dose over 30 minutes with daughter in agreement. documented in this encounterMercy Health St. Rita'[facility]12-20-2024 History of Present illness Narrative* Thalia Monterroso [...] visit. 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 She started to develop symptoms of inflammatory [...] Take 1 tablet by mouth once daily. xaedlrk-xdtmkitdg-iymqfcx D3 500 mg-5 mcg (200 unit) per [...] Latest Ref Rng & Units 07/10/2021 07/04/2023 11/25/202302/24/2024 CRP CRP <0.9 mg/dL 4.7 <0.3 0.6 [...] when pain is worse. Continue tramadol by pall care She is getting a CT scan [...] making from today, 03/05/2024) Follow-up 3 months hTalia Monterroso MD * Nicole Childs MA - 03/05/2024 8:25 AM EST Zoom Daughter Eloisa (POTasia) will be with her at the facility [...] (started 08/28/23, most recent infusion 01/28/24) Seeing tracy pineda, getting tramadol 50 mg every 6 hours [...] to look for mets documented in this encounterMercy Health St. Rita'[facility]12-18-2024 Telephone encounter Note * Telephone Encounter - Cassidy Arreola APRN.CNP - 03/03/2024 9:56 AM EST Noted. Cassidy Arreola APRN.CNP [facility] Work Phone: 1(359) 516-820512-18-2024 Miscellaneous Notes* Telephone Encounter - Cassidy Arreola APRN.CNP - 03/03/2024 9:56 AM EST Noted. Cassidy Arreola APRN.CNP * Telephone Encounter - Sadie Gann LPN - 03/02/2024 4:37 PM EST Spoke with pt. Daughter , she informed she is not sure if RA is the cause of pt. Pain, or if it is from the iron infusions. CRP and Sed rates are both elevated, they have appt. With talent acquisition assistant oniday . Will keep appts. 03/08 and 03/12 [...] appointments that were requested. Patient is seeing talent acquisition assistant on Friday. Transferred call to nurse. Meredith Alonzo * Telephone Encounter - Anneliese Garcia LPN - 03/02/2024 4:12 PM EST Tried to call daughter, no answer. Wanted to see if her pain was from her rheumatoid arthritis, which [place] noted in her OV on 02/24/24. Please assist in rescheduling. Anneliese Garcia LPN * Telephone Encounter - Alvina Mane - 03/02/2024 4:01 PM EST Daughter is calling to state patient is in a lot of pain, hard to even get out of her chair. They want to cancel 03/03 and 03/05 and would like to get those visits rescheduled. documented in this encounterMercy Health St. [facility]12-17-2024 Telephone encounter Note * Telephone Encounter - Sadie Gann LPN - 03/02/2024 4:37 PM EST Spoke with pt. Daughter , she informed she is not sure if RA is the cause of pt. Pain, or if it is from the iron infusions. CRP and Sed rates are both elevated, they have appt. With talent acquisition assistant onFriday . Will keep appts. 03/08 and 03/12 unless she becomes more painful , will have CT scans on 03/19 , and depending on those results will make a decision to proceed further or stop. Sadie Gann LPN [facility]12-17-2024 Telephone encounter Note* Telephone Encounter - Meredith Alonzo - 03/02/2024 4:29 PM EST Spoke with patient's daughter. They are not sure if the pain is from her RA of if her cancer is active again. Cancelled the 2 appointments that were requested. Patient is seeing talent acquisition assistant on Friday. Transferred call to nurse. Meredith Alonzo [facility]12-17-2024 Telephone encounter Note* Telephone Encounter - Anneliese Garcia LPN - 03/02/2024 4:12 PM EST Tried to call daughter, no answer. Wanted to see if her pain was from her rheumatoid arthritis, which Cassidy noted in her OV on 02/24/24. Please assist in rescheduling. Anneliese Garcia LPN [facility]12-17-2024 Telephone encounter Note* Telephone Encounter - Alvina Mane - 03/02/2024 4:01 PM EST Daughter is calling to state patient is in a lot of pain, hard to even get out of her chair. They want to cancel 03/03 and 03/05 and would like to get those visits rescheduled. [facility]12-10-2024 History of Present illness Narrative* Cassidy Arreola, SILVIO.CONSULTING ACTUARY - 02/24/2024 1:49 PM EST Chief Complaint [...] for both; strong for ER, moderate for NC). HER-2 3+. Had been using Estrace cream [...] Wire Localization: Wire absent Lymph Node Sampling: [place] lymph node(s) Tumor size: Size of largest [...] tamoxifen therapy. S/p underwent hysteroscopy D&C at [facility] on 08/23/[address] Hebert. Path. Benign. Pt. resides at [facility]. Pt. here today with her daughter. Drop [...] k/uL 0.67 (L) 0.54 (L) 0.92 (L) [place]% % 12.3 8.8 12.1 Abs [place] <0.87 k/uL 1.02 (H) 0.46 1.15 (H) [...] ICD10: Z08, Z85.3 (primary diagnosis) pT1b pN0(sln) ER/NC positive, HER2 positive invasive ductal carcinoma the [...] discussed with the Patient or Patient's Authorized Certified Athletic Trainer. Asapplicable, any other physician, advance practice provider, medical student, or other health professional student that will be observing or involved in the sensitive examination for educational or training purposes was discussed with the Patient or Authorized Certified Athletic Trainer. The Patient or Authorized Certified Athletic Trainer has agreed to proceed with the sensitive examination. (Sensitive examination includes inspection and/or palpation of the breasts, pelvis, prostate and anorectal regions) The patient indicates understanding of these issues and agrees with the plan. All documentation from previous visit of 08/19/23-Dr. Bonilla/myself was copied and pasted, documentation has been reviewed and edited as necessary for today's visit. Cassidy Arreola APRN.CONSULTING ACTUARY documented in this encounterMercy Health St. [facility]12-10-2024 History of Present illness Narrative* Vania Horan RN - 02/24/2024 8:07 AM EST . documented in this encounterMercy Health St. [facility]11-08-2024 Telephone encounter Note * Telephone Encounter - Nicole Childs MA - 01/23/2024 4:33 PM EST Spoke with louisa Informed her of increased prednisone instructions and I will also fax this phone encounter. Louisa will speak with patients daughter for them to take note if they feel she has a flare up 1-2 weeks prior to infusion [facility]11-08-2024 Miscellaneous Notes* Telephone Encounter - Nicole Childs [...] increase her dose. * Telephone Encounter - Nicole Childs MA [...] Dr. Monterroso's instructions to the facility at [phone] Last ov 11/14/23 Rheumatoid arthritis involving multiple [...] Lymph 1.00 - 4.00 k/uL 0.54 (L) [place]% % 8.8 Abs [place] <0.87 k/uL 0.46 Eosin% % 0.4 Abs [...] PM EST Louisa, nurse at [facility], feels patient may be having a flare. Has lots of pain in herhands. Asking for call back please. Louisa at [facility] [phone] Thanks! Selma Mcdaniel, PSS documented in this encounterMercy Health St. [facility]11-08-2024 Telephone encounter Note * Telephone Encounter - [...] she'dlike to try to increase her dose. [facility]11-08-2024 Telephone encounter Note* Telephone Encounter - Nicole [...] Dr. Monterroso's instructions to the facility at [phone] Last ov 11/14/23 Rheumatoid arthritis involving multiple [...] Lymph 1.00 - 4.00 k/uL 0.54 (L) [place]% % 8.8 Abs [place] <0.87 k/uL 0.46 Eosin% % 0.4 Abs [...] mg/dL 0.6 Legend: (L) Low (H) High [facility]11-08-2024 Telephone encounter Note* Telephone Encounter - Selma Mcdaniel - 01/23/2024 12:31 PM EST Louisa, nurse at [facility], feels patient may be having a flare. Has lots of pain in herhands. Asking for call back please. Louisa at [facility] [phone] Thanks! Selma Mcdaniel, DHEERAJ [facility]09-26-2024 History of Present illness Narrative* Andria Joyner RN - 12/11/2023 11:27 AM EDT Denies any dental issues or concerns. No extractions or root canals in the last 6 months. Daughter present. Andria Joyner RN documented in this encounterMercy Health St. Rita'[facility]09-19-2024 History of Present illness Narrative* Cesia Rangel RN - 12/04/2023 10:22 AM EDT Secure chat, as well as Page sent to Dr. Monterroso regarding Reclast. Unable to reach at this time. Daughter aware and ok with waiting until next tx. Cesia Rangel RN documented in this encounterMercy Health St. [facility]09-11-2024 Telephone encounter Note * Telephone Encounter - Sadie Gann LPN - 11/26/2023 11:51 AM EDT Faxed, spoke with chetan at [facility] , they did receive. Sadie Gann LPN [facility]09-11-2024 Miscellaneous Notes* Telephone Encounter - Sadie Gann LPN - 11/26/2023 11:51 AM EDT Faxed, spoke with chetan at [facility] , they did receive. Sadie Gann LPN * Telephone Encounter - Page Robles - 11/26/2023 10:39 AM EDT Received call from [facility]. They stated a fax came thru this morning, however, they only received Cover Page. Please resubmit. [phone] * Telephone Encounter - Sadie Gann LPN - 11/26/2023 9:43 AM EDT spoke with pts. SLAUGHTER, given information concerning her iron studies. Also informed Dr. Bonilla notation was sent to [facility] attn: herminia horner so additional [...] brings labs and note from Herminia Horner DINING HOST from care home. Daughter states -pt has had a drop in her Hgb to 9.9 from 11/03/23. (labs and note placed on your desk) -Pt has occult blood x 3 but pt does not want a colonoscopy. -Saw Dr Loc gates on 11/14/23, adding Reclast. -Pt having Iron studies drawn today. daughter asking if pt needs iron infusions prior to starting Reclast. Will need to let [facility] (fax [phone]) and daughter Eloisa. Anneliese Garcia LPN documented in this encounterMercy Health St. [facility]09-11-2024 Telephone encounter Note * Telephone Encounter - Page Robles - 11/26/2023 10:39 AM EDT Received call from [facility]. They stated a fax came thru this morning, however, they only received Cover Page. Please resubmit. [phone] [facility] Work Phone: 1(246) 534-904709-11-2024 Telephone encounter Note* Telephone Encounter - Sadie Gann LPN - 11/26/2023 9:43 AM EDT spoke with pts. POA, given information concerning her iron studies. Also informed Dr. Bonilla notation was sent to [facility] [place] attn: herminia horner so additional labs can be done. Daughter voiced understanding. Sadie Gann LPN [facility]09-10-2024 Telephone encounter Note* Telephone Encounter - Sal [...] TSH and copper level. Sal Bonilla DO [facility]09-10-2024 Telephone encounter Note* Telephone Encounter - Anneliese Garcia LPN - 11/25/2023 1:52 PM EDT Pt here today for labs. Daughter brings labs and note from Herminia Horner NP from care home. Daughter states -pt has had a drop in her Hgb to 9.9 from 11/03/23. (labs and note placed on your desk) -Pt has occult blood x 3 but pt does not want a colonoscopy. -Saw Dr Loc gates on 11/14/23, adding Reclast. -Pt having Iron studies drawn today. daughter asking if pt needs iron infusions prior to starting Reclast. Will need to let [facility] (fax [phone]) and daughter Eloisa. Anneliese Garcia LPN [facility]09-10-2024 Telephone encounter Note* Telephone Encounter - Sal Bonilla DO - 11/25/2023 12:00 PM EDT Thank you. Filed. Sal Bonilla DO [facility]09-10-2024 Miscellaneous Notes* Telephone Encounter - Sal Bonilla DO - 11/25/2023 12:00 PM EDT Thank you. Filed. Sal Bonilla DO * Telephone Encounter - Anneliese Garcia LPN - 11/25/2023 11:56 AM EDT Pended lab orders. Anneliese Garcia LPN documented in this encounterMercy Health St. [facility]09-10-2024 Telephone encounter Note * Telephone Encounter - Anneliese Garcia LPN - 11/25/2023 11:56 AM EDT Pended lab orders. Anneliese Garcia LPN [facility]08-30-2024 History of Present illness Narrative* Thalia Monterroso [...] visit. 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 difficile colitis No date: Coronary artery [...] Take 1 tablet by mouth once daily. ygwrppo-onrmyfvwf-umjnxuq D3 500 mg-5 mcg (200 unit) per [...] with more than 50% of the total ztky-nb-pwja time of the visit in counseling / coordination of care. documented in this encounterMercy Health St. [facility]07-25-2024 History of Present illness Narrative* Andria Joyner RN - 10/09/2023 11:11 AM EDT Pt requesting to have the infusion over 2 hours. States the two previous infusions were fine and noside effects during or when she got home. Andria Joyner RN documented in this encounterMercy Health St. [facility]06-05-2024 Telephone encounter Note * Telephone Encounter - Page Robles - 08/20/2023 11:43 AM EDT Scheduled 1st treatment with [facility]. 3 cycles entered. Start email sent [facility] Work Phone: 1(311) 518-587406-05-2024 Miscellaneous Notes* Telephone Encounter - Page Robles - 08/20/2023 11:43 AM EDT Scheduled 1st treatment with [facility]. 3 cycles entered. Start email sent * Telephone Encounter - Page Robles - 08/19/2023 3:16 PM EDT Please call Loli at [facility] when ready to schedule. [phone] * Telephone Encounter - Page Robles - 08/19/2023 2:13 PM EDT Daughter, Eloisa called stating that [facility] will be calling to schedule Renflexis in [place]. Dr. Monterroso ordering. Please review and advise. documented in this encounterMercy Health St. [facility]06-04-2024 Telephone encounter Note * Telephone Encounter - Page Robles - 08/19/2023 3:16 PM EDT Please call Loli at [facility] when ready to schedule. [phone] [facility]06-04-2024 Telephone encounter Note* Telephone Encounter - Page Robles - 08/19/2023 2:13 PM EDT Daughter, Eloisa called stating that [facility] will be calling to schedule Renflexis in [place]. Dr. Monterroso ordering. Please review and advise. [facility]06-04-2024 History of Present illness Narrative* Cassidy Arreola APRN.CONSULTING ACTUARY - 08/19/2023 11:29 AM EDT Chief Complaint [...] for both; strong for ER, moderate for NC). HER-2 3+. Had been using Estrace cream [...] Wire Localization: Wire absent Lymph Node Sampling: [place] lymph node(s) Tumor size: Size of largest [...] tamoxifen therapy. S/p underwent hysteroscopy D&C at [facility] on 08/23/[address] Hebert. Path. Benign. Pt. resides at [facility]. Pt. here today with her [...] - 4.00 k/uL 0.84 (L) 0.67 (L) [place]% % 13.6 12.3 Abs [place] <0.87 k/uL 1.41 (H) 1.02 (H) Eosin% [...] ICD10: C50.311, Z17.0 (primary diagnosis) pT1b pN0(sln) ER/NC positive, HER2 positive invasive ductal carcinoma the [...] as necessary for today's visit. Cassidy Arreola APRN.CONSULTING ACTUARY documented in this encounterMercy Health St. [facility]06-04-2024 History of Present illness Narrative* Vania Horan RN - 08/19/2023 7:21 AM EDT Patient is here for IVAD port flush/blood draw per [facility] [place] protocol. IVAD is located in right upper [...] Patient tolerated procedure well. documented in this encounterMercy Health St. [facility]05-10-2024 Telephone encounter Note * Telephone Encounter - Inessa Arnold RN - 07/25/2023 4:30 PM EDT Called Yonatan Bettencourt and discussed taper schedule from Dr. Monterroso of dropping by 1mg every month. Currently on 10mg Prednisone. Milagros of [facility] expressed understanding of taper schedule. [facility]05-10-2024 Miscellaneous Notes* Telephone Encounter - Inessa Arnold RN - 07/25/2023 4:30 PM EDT Called [facility] and discussed taper schedule from Dr. Monterroso of dropping by 1mg every month. Currently on 10mg Prednisone. Milagros of [facility] expressed understanding of taper schedule. * Telephone Encounter - Mary Beth Tervino - 07/25/2023 12:39 PM EDT Milagros from [facility] calling they need clarification on the taper of Prednisone. Please call [phone] and ask for Yonatan Bettencourt documented in this encounterMercy Health St. [facility]05-10-2024 Telephone encounter Note * Telephone Encounter - Mary Beth Trevino - 07/25/2023 12:39 PM EDT Milagros from [facility] calling they need clarification on the taper of Prednisone. Please call [phone] and ask for Yonatan Bettencourt [facility]04-30-2024 History of Present illness Narrative* Vikash Sylvester, SILVIO.CONSULTING ACTUARY - 07/15/2023 2:30 PM EDT Female Pelvic [...] [facility]. GFR normal. Urinary Incontinence: no Voiding Dysfunction: no Urinary Frequency: yes, takes lasix Urinary Urgency: yes, sometimes Prolapse Symptoms: no Defecatory Dysfunction: no Fecal Incontinence: no Abnormal Bleeding: no Pain: no Abnormal Vaginal Discharge: no I have confirmed and edited as necessary, the PFSH obtained by others. Vikash Sylvester APRN.CONSULTING ACTUARY Neonatologist offered: Patient declines. OBJECTIVE: BP 122/84 Ht [...] VV next year since they live in [place]. Medical Decision Making: Problems: Moderate: 2+ stable chronic illnesses Data: Unique test result(s) reviewed: 1 Risk: Moderate: Drug management Medical Decision Making Level: 4 - Moderate Vikash Sylvester APRN.CONSULTING ACTUARY documented in this encounterMichael Ville [address]-19-2024 History of Present illness Narrative* Margy Sarabia - 07/04/2023 3:[address] [facility] received prescription(s) for Humira from Dr. Monterroso's office. Benefits investigation was conducted, indicating that a prior authorization is required by patient's insurance plan with [employer] Encounter will be updated once [facility] Margy Sarabia CPhT, Inflammatory/Allergy [facility] [phone] * Margy Sarabia - 07/04/2023 3:42 PM EDT Images from the original note were not included. * Margy Sarabia - 07/04/2023 3:42 [address] EDT [facility] received prescription(s) for Humira from Loc's office. Benefitsinvestigation was conducted, indicating that a prior authorization is required. ARTEMIO was approved with details listed below: Plan [...] this time. Patient will be referred to [employer] Assistance [employer]. Note will be update once pt is contacted. Margy Sarabia CPhT, Inflammatory/Allergy [facility] [phone] documented in [address]Mer[address] [facility]04-19-2024 History of Present illness Narrative* Thalia Monterroso [...] 2012 (elevated [facility] She started to develop symptoms of inflammatory [...] Take 1 tablet by mouth once daily. ptxeqct-vjjoemtxs-qxlacnw D3 500 mg-5 mcg (200 unit) per [...] months Thalia Monterroso MD documented in this encounterMercy Health St. [facility]04-16-2024 Miscellaneous Notes* Telephone Encounter - Bayron Spears RN - 07/01/2023 4:00 PM EDT Singed order for compression stockings place in postal mail addressed to: [facility] medical records [id number] [place] [address] documented in [address] encounterMer[address]. [facility]04-15-2024 History of Present illness Narrative* Stella Preciado PA-C - 06/30/2023 4:00 PM EDTAssociated Order(s): Large Joint Arthro/Inj: R knee joint Post-Procedure Diagnose(s): Primary osteoarthritis of both knees Large Joint Arthro/Inj: R knee joint Informed Consent Consent Obtained: Verbal [place] Protocol A moment to CARE was completed. [...] right knee cortisone injection. documented in this encounterMercy Health St. [facility]04-15-2024 Instructions* Patient Instructions* Stella Preciado PA-C - 06/30/2023 3:42 PM EDT Right knee injection today. No restrictions, follow up in 91 days if needed. documented in this encounterMercy Health St. [facility]04-03-2024 History of Present illness Narrative* Stella Preciado PA-C - 06/18/2023 9:16 AM EDTAssociated Order(s): Large Joint Arthro/Inj: L knee joint Post-Procedure Diagnose(s): Primary osteoarthritis of both knees; Chronic pain of left knee Stella Preciado PA-C Department of Orthopaedics [facility] [place] [facility] [id number] Dept: [phone] Dept June 18, 2023 CHIEF COMPLAINT: Established [...] knee joint Informed Consent Consent Obtained: Verbal [place] Protocol A moment to CARE was completed. [...] Take 1 tablet by mouth once daily. kuhodrk-lgjquyrtc-dkenakq D3 500 mg-5 mcg (200 unit) per [...] [Lisinopril] This note was partially generated using [employer] voice recognition system, and there may be [...] into the left knee. documented in this encounterMercy Health St. [facility]04-03-2024 Instructions* Patient Instructions* Stella Preciado PA-C - 06/18/2023 8:54 AM EDT Left knee injection today, follow up in 1-2 weeks for right knee injection. documented in this encounterMercy Health St. [facility]04-03-2024 History of Present illness Narrative* Page Ruiz [...] PATIENT PRESENTS WITH AN IMPLANTABLE OR ATTACHED RCIS: No RADIOLOGY DEPARTMENT: General X-ray: Exam(s) Completed: Lower Extremity X- Ray(s): Knee, AP / Lat / Tunne / Merchant Bilateral and Wt. Bearing PERIPHERAL IV DATA: Not applicable SIGNED BY: RT Nithin(R) June 18, 2023 11:10 AM documented in this encounterMercy Health St. [facility]04-01-2024 History of Present illness Narrative* MariluCecilio, DO - 06/16/2023 1:57 PM EDT Images from the original note were not included. [facility] [place] Luis Miguel Kolb Department of Cardiovascular Medicine SECTION OF CLINICAL CARDIOLOGY OUTPATIENT VISIT DATE June 16, 2023 OUTPATIENT VISIT TYPE ESTABLISHED Patient Name: hCristian Landrum : 1935 PRIMARY CARE PHYSICIAN: Galina Iraheta MD [facility] 09/05/22 CHIEF COMPLAINT: Patient presents with: Follow [...] risk and aware of this off anticoagulation. [id number] score 4 or approximately 7% annual stroke [...] - Exam was compared with the prior CC echocardiographic exam performed on 09/07/2020, no significant change. * * * Final * * * Last EKG Result Conclusion ECG COMPLETE Collected: 09/05/2022 9:16 AM (Final result) Impression: NORMAL SINUS RHYTHM Confirmed by OBDULIA BERMEO DO ([id number]) on 10/08/2022 3:19:16 PM LABS: Sodium (mmol/L) [...] [Cephalexin], Naprosyn [Naproxen], Desmond Inhibitors, Adhesives [Other], [id number] [Diclofenac-Misoprostol], Blephamide [Sulfacetamide- Prednisolone], Ditropan [Oxybutynin], Flagyl[Metronidazole [...] benign mass on liver PMR (polymyalgia rheumatica) ([facility]) 2012 Pure hypercholesterolemia Snoring Squamous cell [...] Age of Onset other ( age 60 MS) Mother hypertension and TB other (pancreatic cancer) [...] Take 1 tablet by mouth once daily. ylviwcq-ctbebyfut-oxauwpn D3 500 mg-5 mcg (200 unit) per [...] medications for this visit. documented in this encounterMercy Health St. [facility]03-22-2024 History of Present illness Narrative* Hu Moreland [...] PATIENT PRESENTS WITH AN IMPLANTABLE OR ATTACHED RCIS: No RADIOLOGY DEPARTMENT: Bone Density PERIPHERAL IV DATA: Not applicable SIGNED BY: RT Dwayne(R) June 06, 2023 2:13 PM documented in this encounterMercy Health St. Rita'[facility]02-14-2024 Miscellaneous Notes* Telephone Encounter - Nicole Childs [...] 04/29/2023 10:57 AM EST Spoke with Maximus BRUNO She is still [...] Maximus said we can fax response to [phone] * Telephone Encounter - Nery Olsen - 04/28/2023 1:04 PM EST Maximus from [facility] called to advise that pt's pain has gotten worse while on the prednisone taper. Advised that dosage is now at 12.5 and pt is in a lot of pain. Callback: [phone] DHEERAJ Ponce documented in this encounterMercy Health St. Rita'[facility] Center02-09-2024 Miscellaneous Notes* Telephone Encounter - Nicole Childs [...] 04/24/2023 12:39 PM EST Maximus BRUNO from [facility] called. Patient was complaining of all [...] response and or call documented in this encounterMercy Health St. Rita'[facility] Center11-28-2023 History of Present illness Narrative* Cassidy Arreola APRN.CONSULTING ACTUARY - 02/11/2023 10:05 AM EST Chief Complaint [...] for both; strong for ER, moderate for NC). HER-2 3+. Had been using Estrace cream [...] Wire Localization: Wire absent Lymph Node Sampling: [place] lymph node(s) Tumor size: Size of largest [...] tamoxifen therapy. S/p underwent hysteroscopy D&C at [facility] on 08/23/[address] Hebert. Path. Benign. Pt. resides at [facility]. Pt. here today with her [...] 1.00 - 4.00 k/uL 1.57 1.06 1.54 Seminole% % 11.2 11.2 9.7 Abs [place] <0.87 k/uL 0.68 0.59 0.68 Eosin% % [...] V10.3, ICD10: Z85.3 (primary diagnosis) pT1b pN0(sln) ER/NC positive, HER2 positive invasive ductal carcinoma the [...] as necessary for today's visit. Cassidy Arreola APRN.CONSULTING ACTUARY documented in this encounterMercy Health St. [facility]10-05-2023 Miscellaneous Notes* Telephone Encounter - Sheryl Mercado RN - 12/19/2022 2:42 PM EDT Faxed patient's last office visit note to facility, [facility], per MM. documented in this encounterMercy Health St. Rita'[facility]10-03-2023 History of Present illness Narrative* Vania Horan RN - 12/17/2022 7:27 AM EDT Patient is here for IVAD port flush per [facility] protocol. IVAD is located in right upper chest. Site cleansed with Chloraprep IVAD accessed with a #20 gauge 3/4 non-coring Gripper needle Blood Return: Good Flushed with: 20 ml Normal Saline and 5 ml Heparin Lock Flush Non-coring needle removed. Paper tape applied to puncture site. Port site negative for redness, edema or tenderness. Patient tolerated procedure well. documented in this encounterMercy Health St. Rita'[facility] Center09-29-2023 Instructions* Patient Instructions* Juliet Gaffney APRN.CNP - 12/13/2022 2:50 PM EDT PLAN AND RECOMMENDATIONS: No change in medications Follow up Dr Ibarra in 6 months. CONTACT INFORMATION: Juliet Gaffney APRN.CNP Cardiology Nurse Practitioner Section of Regional Cardiology [facility] Dept of Cardiovascular Medicine [facility] [place] [address] [place] [id number] Office Office documented in this encounterMercy Health St. Rita'[facility] Center09-29-2023 History of Present illness Narrative* Juliet Gaffney APRN.CNP - 12/13/2022 2:45 PM EDT Images from the original note were not included. [facility] [place] [facility] Department of Cardiovascular Medicine SECTION OF CLINICAL CARDIOLOGY OUTPATIENT VISIT DATE December 13, 2022 OUTPATIENT VISIT TYPE ESTABLISHED PRIMARY CARE PHYSICIAN: Galina Iraheta [address] [place] [address] REFERRING PHYSICIAN: Jerrica Beltran [address] [place] [id number] CHIEF COMPLAINT: Follow Up ([place] denies cardiac concerns/Daughter, Eloisa, concerned about Lasix [...] if standing for long time, like at [facility] but resolves quickly Has sleep apnea with new mask and now sleeps better. She overall feels better than she has in a long time. Does water therapy at her assisted living facility. [facility] She denies shortness of breath, chest [...] Age of Onset other ( age 60 MS) Mother hypertension and TB other (pancreatic cancer) [...] Take 1 tablet by mouth once daily. frwzrca-asnkntybl-rjmyfms D3 500 mg-5 mcg (200 unit) per [...] SINUS RHYTHM Confirmed by OBDULIA BERMEO DO ([id number]) on 10/08/2022 3:19:16 PM There were no [...] in 6 months. CONTACT INFORMATION: Juliet Gaffney APRN.INGE Cardiology Nurse Practitioner Section of [facility] Cardiology [facility] Dept of Cardiovascular Medicine [facility] [place] [address] Office Office documented in this encounterMercy Health St. Rita'[facility]09-12-2023 Miscellaneous Notes* Telephone Encounter - Sheryl Mercado [...] we assist patient with scheduling, contact is DaughterEloisa. * Telephone Encounter - Stella Preciado PA-C - 11/26/2022 9:20 AM EDT Order entered for US guided injection right CMC joint, can we assist patient with scheduling, contact is Daughter, Eloisa. documented in this encounterMercy Health St. Rita'[facility]09-11-2023 Instructions* Patient Instructions* Stella Preciado PA-C - [...] feels comfortable doing so. documented in this encounterMercy Health St. Rita'S [facility] Center09-11-2023 History of Present illness Narrative* Page Ruiz RT(Palma) - 11/25/2022 2:10 PM EDT Radiology Service [...] 25, 2022 2:30 PM documented in this encounterMercy Health St. Rita'S [facility] Center09-11-2023 History of Present illness Narrative* Stella Preciado PA-C - 11/25/2022 2:05 PM EDTAssociated Order(s): Large Joint Arthro/Inj: bilateral knee joints Post-Procedure Diagnose(s): Primary osteoarthritis of both knees Large Joint Arthro/Inj: bilateral knee joints Informed Consent Consent Obtained: Verbal [place] Protocol A moment to CARE was completed. [...] Amount of Time: (Ongoing) documented in this encounterMercy Health St. Rita'S [facility] Center08-31-2023 Miscellaneous Notes* Telephone Encounter - Juliet Coombs - 11/14/2022 5:44 PM EDT Left VM on patient's home and mobile lines cancelling the patient's 12/11/22 cardiology appointment.Instructed the patient to call the office to reschedule. My Chart message sent. documented in this encounterMercy Health St. Rita'[facility] Center07-11-2023 History of Present illness Narrative* Andria Joyner RN - 09/24/2022 2:35 PM EDT Patient is here for IVAD port flush per [facility] protocol. IVAD is located in right upper [...] well. Andria Joyner RN documented in this encounterMercy Health St. Rita'[facility] Center07-07-2023 Miscellaneous Notes* Telephone Encounter - Ana Cristina Melo RN - 09/20/2022 8:44 AM EDT Reviewed labs with Dr. Ibarra. Recommended pt to hold Eliquis. Would like pt to see Dr. Shields to discuss Watchmen Device. Reviewed recommendations to KASANDRA Linares at [facility]. Eloisa stated she will review Watchman recommendations to pt. Will contact us if she decided to pursue. * Telephone Encounter - Ana Cristina Melo RN - 09/20/2022 8:17 AM EDT Jie from [facility] ([phone]) in reg to Ms Ashley Landrum. CBC drawn today per Dr. Jose morales (2 week post starting Eliquis). Scan on 09/20/2022 8:25 AM by Yolanda Ashford: Miscellaneous Lab Pt has now refused Eliquis x4 days d/t black stools and +Hemoccult. Next CBC due 09/14/22. Inquiring if we have any additional orders/recommendations. [facility] 09/05/22 w/ Dr. Ibarra: Paroxysmal atrial fibrillation - Stable and remains in sinus rhythm today - No atrial fibrillation noted despite multiple hospital admissions with fever - Historically was on Warfarin but this was stopped in February 2022 for GI bleed. Patient is high thromboembolic risk and aware of this off anticoagulation. [id number]-PQIe score 4 or approximately 7% annual stroke risk and has-bled score is 2 or 4% bleeding risk - Currently on metoprolol - patient and daughter wish to trial DOAC now Iron deficiency anemia Doing well with iron infusions with stable Hgb documented in this encounterMercy Health St. Rita'S [facility] Center06-22-2023 History of Present illness Narrative* Cecilio Ibarra DO - 09/05/2022 9:12 AM EDT Images from the original note were not included. [facility] [place] [facility] Department of Cardiovascular Medicine SECTION OF CLINICAL CARDIOLOGY OUTPATIENT VISIT DATE April 09, 2022 OUTPATIENT VISIT TYPE ESTABLISHED Patient Name: Christian Landrum : 1935 PRIMARY CARE PHYSICIAN: Galina Iraheta MD [facility] 09/05/21 CHIEF COMPLAINT: No chief complaint on file. Ms. Lanrdum is an 87 y/o female who comes [...] risk and aware of this off anticoagulation. [id number] score 4 or approximately 7% annual stroke [...] [Cephalexin], Naprosyn [Naproxen], Desmond Inhibitors, Adhesives [Other], [id number] [Diclofenac-Misoprostol], Blephamide [Sulfacetamide- Prednisolone], Ditropan [Oxybutynin], Flagyl[Metronidazole [...] benign mass on liver PMR (polymyalgia rheumatica) ([facility]) 2012 Pure hypercholesterolemia Snoring Squamous cell [...] Age of Onset other ( age 60 MS) Mother hypertension and TB other (pancreatic cancer) [...] Take 1 tablet by mouth once daily. estmobi-xcztrnven-zedxruu D3 500 mg-5 mcg (200 unit) per [...] medications for this visit. documented in this encounterMercy Health St. Rita'S [facility] Center06-13-2023 History of Present illness Narrative* Cassidy Arreola APRN.CONSULTING ACTUARY - 08/27/2022 11:54 AM EDT Chief Complaint [...] for both; strong for ER, moderate for NC). HER-2 3+. Had been using Estrace cream [...] Wire Localization: Wire absent Lymph Node Sampling: [place] lymph node(s) Tumor size: Size of largest [...] tamoxifen therapy. S/p underwent hysteroscopy D&C at [facility] on 08/23/[address] Hebert. Path. Benign. Pt. now resides at [facility]. Pt. here today with her [...] Lymph 1.00 - 4.00 k/uL 1.35 1.57 Seminole% % 11.0 11.2 Abs [place] <0.87 k/uL 0.54 0.68 Eosin% % 1.6 [...] V10.3, ICD10: Z85.3 (primary diagnosis) pT1b pN0(sln) ER/NC positive, HER2 positive invasive ductal carcinoma the [...] visit. Cassidy Arreola APRN.INGE documented in this encounterMercy Health St. Rita'[facility]03-28-2023 Miscellaneous Notes* Telephone Encounter - Sadie Lin LPN - 06/11/2022 10:02 AM EDT Pt. Daughter notified of results, voiced understanding. Sadie Lin LPN * Telephone Encounter - Cassidy rAreola APRN.CNP - 06/11/2022 9:25 AM EDT Please inform pts. daughter no concerning finding on xray (sorry it took awhile for the result). Follow up as scheduled unless pain persists. Thank you. Cassidy Arreola APRN.CNP documented in this encounterMercy Health St. Rita'S [facility]03-22-2023 History of Present illness Narrative* Page Ruiz RT(R) - 06/05/2022 11:40 AM EDT Radiology [...] 05, 2022 12:37 PM documented in this encounterMercy Health St. Rita'S [facility]03-22-2023 History of Present illness Narrative* Cassidy Arreola APRN.CNP - 06/05/2022 10:51 AM EDT Chief Complaint [...] for both; strong for ER, moderate for NC). HER-2 3+. Had been using Estrace cream [...] Wire Localization: Wire absent Lymph Node Sampling: [place] lymph node(s) Tumor size: Size of largest [...] tamoxifen therapy. S/p underwent hysteroscopy D&C at [facility] on 08/23/[address] Hebert. Path. Benign. Pt. now resides at [facility]. Pt. here today with her [...] Skin:denies rashes/lesions Heme:denies bleeding since visit with COMMERCIAL LOAN OFFICER The ROS is otherwise negative. Past medical [...] V10.3, ICD10: Z85.3 (primary diagnosis) pT1b pN0(sln) ER/NC positive, HER2 positive invasive ductal carcinoma the [...] visit. Cassidy Arreola APRN.INGE documented in this encounterMercy Health St. Rita'[facility]03-16-2023 Miscellaneous Notes* Telephone Encounter - Meredith Cheri - 05/30/2022 3:07 PM EDT Spoke with Jie at [facility] and she stated that appointments need made with the patient's family as they are the ones that transport the patient. Spoke with patient's daughter, advising below, and scheduled May follow up as directed. Meredith Alonzo * Telephone Encounter - Lisa Morales LPN - 05/30/2022 1:42 PM EDT Left detailed message for Herminia with information below. I attempted to contact [place] [employer] [facility], , they were unable to hear on their line. Unable to speak to anyone. I faxed this information to [phone]. Will attempt to contact again later. PSS- please contact [facility] to schedule as directed below. Lisa Morales [...] - 05/30/2022 12:34 PM EDT Herminia from [facility] called stating patient is having right side pain, rib area. She is asking if imaging orders could be sent or if patient needs to be seen . She states concern due to hx breast cancer. Please call Herminia at [phone] documented in this encounterMercy Health St. Rita'S [facility] Center01-25-2023 Miscellaneous Notes* Telephone Encounter - Starla Son [...] today. Starla Son RN documented in this encounterMercy Health St. Rita'S [facility] Center01-24-2023 Instructions* Patient Instructions* Taty Perez APRN.INGE - [...] day - please fax BP readings to [phone] I would like to know if your [...] sodium diet is recommended documented in this encounterMercy Health St. Rita'S [facility] Center01-24-2023 History of Present illness Narrative* Taty Alarcon KENAN Perez - 04/09/2022 2:44 PM EST Images from the original note were not included. [facility] [place] [facility] Department of Cardiovascular Medicine [...] which included preparing to see the patient, gdgw-xo-sfvp patient care, completing clinical documentation, performing a medically appropriate examination, counseling and educating the patient/family/caregiver, ordering medications, tests, or p rocedures, and communicating results to the patient/family/caregiver. Thank you very much for allowing me to assist in the care of Christian Landrum. Please do not hesitate to contact me if you have questions or concerns. Taty Perez APRN.[facility] Cardiology Nurse Practitioner Section of Regional Cardiology [place] Dept of Cardiovascular Medicine [facility] [place] [address] [place], [place] [id number] Office Office April 09, 2022 2:44 PM This note was partially generated using RealMatch voice recognition system and may contain errors [...] [Cephalexin], Naprosyn [Naproxen], Desmond Inhibitors, Adhesives [Other], [id number] [Diclofenac-Misoprostol], Blephamide [Sulfacetamide- Prednisolone], Ditropan [Oxybutynin], Flagyl[Metronidazole [...] benign mass on liver PMR (polymyalgia rheumatica) ([facility]) 2012 Pure hypercholesterolemia Snoring Squamous cell [...] Age of Onset other ( age 60 MS) Mother hypertension and TB other (pancreatic cancer) [...] and ROS obtained by others. Taty Perez APRN.CONSULTING ACTUARY CURRENT MEDICATIONS: Current Outpatient Medications Medication Sig [...] Take 1 tablet by mouth once daily. xbyaqgv-oshhmdbat-notxemv D3 500 mg-5 mcg (200 unit) per tablet Take 1 tablet by mouth once daily. omeprazole (PRILOSEC) 40 mg capsule Take 1 capsule by mouth once daily. gabapentin (NEURONTIN) 600 mg tablet Take 0.5 tablets by mouth once daily. (Patient taking differently: Take 300 mg by mouth daily at bedtime.) No current facility-administered medications for this visit. documented in this encounterMercy Health St. Rita'[facility]01-23-2023 History of Present illness Narrative* Nata Morrison RN - 04/08/2022 11:07 AM EST documented in this encounterMercy Health St. Rita'S [facility] Center01-09-2023 Miscellaneous Notes* Telephone Encounter - DHEERAJ Wood [...] transfusion on 03/05. A CBC done at [facility] on 03/07 Showed that the hemoglobin increased [...] infusion. Sal Bonilla DO documented in this encounterMercy Health St. Rita'S [facility] Center01-06-2023 Miscellaneous Notes* Telephone Encounter - Dayami Pinto - 03/22/2022 1:47 PM EST PT scheduled * Telephone Encounter - aSl Bonilla DO - 03/21/2022 5:36 PM EST [...] time. Lisa Morales LPN documented in this encounterMercy Health St. Rita'S [facility] Center12-27-2022 Miscellaneous Notes* Telephone Encounter - Dayami Pinto [...] in for a lab port draw and scrap picker hemoccult cards at the desk (labeled and at nurses station for scrap picker when she comes in).PSS please reach [...] Garcia LPN * Telephone Encounter - Anneliese Jose MERCADO - 03/12/2022 9:57 AM EST Left message on adRise phone to call me back to review [...] was restarted on this medication at the care home. Her iron levels were low when measured [...] to schedule. Meredith Alonzo documented in this encounterMercy Health St. Rita'S [facility] Center12-21-2022 History of Present illness Narrative* Cassidy Arreola APRN.CONSULTING ACTUARY - 03/06/2022 2:26 PM EST Chief Complaint [...] for both; strong for ER, moderate for NC). HER-2 3+. Had been using Estrace cream [...] Wire Localization: Wire absent Lymph Node Sampling: [place] lymph node(s) Tumor size: Size of largest [...] tamoxifen therapy. S/p underwent hysteroscopy D&C at [facility] on 08/23/[address] Hebert. Path. Benign. Pt. now resides at [facility]. Labs have been monitored there. [...] Skin:denies rashes/lesions Heme:denies bleeding since visit with COMMERCIAL LOAN OFFICER The ROS is otherwise negative. Past medical [...] 174.3, V86.0, ICD10: C50.311, Z17.0 pT1b pN0(sln) ER/NC positive, HER2 positive invasive ductal carcinoma the [...] as necessary for today's visit. Cassidy Arreola APRN.CONSULTING ACTUARY documented in this encounterMercy Health St. Rita'S [facility] Center11-22-2022 History of Present illness Narrative* Vania Horan RN - 02/05/2022 7:32 AM EST Patient is here for IVAD port flush per [facility] protocol. IVAD is located in right upper chest. Site cleansed with Chloraprep IVAD accessed with a #20 gauge 3/4 non-coring Gripper needle Blood Return: Good Flushed with: 20 ml Normal Saline and 5 ml Heparin Lock Flush Non-coring needle removed. Paper tape applied to puncture site. Port site negative for redness, edema or tenderness. Patient tolerated procedure well. documented in this encounterMercy Health St. Rita'[facility] Center11-07-2022 History of Present illness Narrative* Stella Preciado PA-C - 01/21/2022 2:58 PM ESTAssociated Order(s): Large Joint Arthro/Inj: R knee joint Post-Procedure Diagnose(s): Primary osteoarthritis of both knees; Chronic pain of right knee Stella Preciado PA-C Department of Orthopaedics Orthopaedics [address] [facility] [address] Dept: [phone] Dept January 21, 2022 CHIEF COMPLAINT: Established Patient of the Left Knee, Established Patient of the Right Knee, and Last seen 11/09/20 S/P Left ring trigger finger release (09/14 MsFrederick Landrum is a 86 year old female [...] knee joint Informed Consent Consent Obtained: Verbal [place] Protocol A moment to CARE was completed. [...] knee osteoarthritis with interval progression as described. Glue Maker: PSCB Transcribe Date/Time: Jul 09 2021 7:03P Dictated [...] Take 1 tablet by mouth once daily. hxcefld-vuqbasiwb-zdqzyen D3 500 mg-5 mcg (200 unit) per [...] anxiety) This note was partially generated using RealMatch voice recognition system, and there may be [...] Eloisa with patient today. documented in this encounterMercy Health St. Rita'S [facility] Center10-19-2022 NoteHNO ID: [id number] Author: Basilia Hernández MD Service: ? Author [...] stool Pain: no Abnormal Vaginal Discharge: no COMMERCIAL LOAN OFFICER HISTORY: Last Pap: Date:04/18/20 NIL; Last Mammogram: [...] Making Level: 4 - Moderate Basilia Hernández, [facility]10-19-2022 Instructions* Patient Instructions* Basilia Hernández MD - 01/02/2022 2:08 PM EDT Follow up with Vikash Sylvester NP in 6 months or sooner as needed documented in this encounterMercy Health St. Rita'[facility]10-19-2022 History of Present illness Narrative* Basilia Hernández [...] stool Pain: no Abnormal Vaginal Discharge: no COMMERCIAL LOAN OFFICER HISTORY: Last Pap: Date:04/18/20 NIL; Last Mammogram: [...] Moderate Basilia Hernández MD documented in this encounterMercy Health St. Rita'[facility]10-11-2022 Miscellaneous Notes* Telephone Encounter - Jayde Link RN - 12/25/2021 10:47 AM EDT Galina Castro DINING HOST called regarding patient's Coumadin, has been having anemia and bloody stool. Asking if Coumadin can be held/stopped temporarily. Coumadin has been ordered by PCP, not cardiology office. Spoke with DINING HOST, explained Dr. Ibarra was not managing patient's Coumadin. DINING HOST stated patient is no longer seeing Dr. Iraheta and has new PCP; requesting orders from Dr. Ibarra. Advised DINING HOST to follow up with new PCP/physician managing Coumadin. Per Dr. Ibarra's notes, anemia has been chronic issue. documented in this encounterMercy Health St. Rita'S [facility] Center08-30-2022 History of Present illness Narrative* Jerrica Bhat RN - 11/13/2021 9:57 AM EDT Patient is here for IVAD port flush per [facility] protocol. IVAD is located in right upper chest. Site cleansed with Chloraprep IVAD accessed with a #20 gauge 3/4 non-coring Gripper needle Blood Return: Good Flushed with: 20 ml Normal Saline Non-coring needle removed. Paper tape applied to puncture site. Port site negative for redness, edema or tenderness. Patient tolerated procedure well. documented in this [facility]08-22-2022 Miscellaneous Notes* Telephone Encounter - Galina Iraheta MD - 11/05/2021 5:17 PM EDT noted * Telephone Encounter - Maria A Camacho (Pharmacy Technology Instructor) - 11/05/2021 9:35 AM EDT PATIENT CALL [...] re-referred, if deemed appropriate. Maria A Camacho; [facility] (Pharmacy Technology Instructor) Pharmacy Anticoagulation Clinic documented in this [facility]08-19-2022 Miscellaneous Notes* Telephone Encounter - An Ta APRN.CNP - 11/02/2021 2:49 PM EDT Noted. An Ta APRN.CNP * Telephone Encounter - Nata Lemon LPN - 11/02/2021 1:12 PM EDT Patient daughter Gia returned call and said her mother is at [facility] and Dr Alejo Salcido is taking over [...] next week. Thank you An Ta APRN.CNP * Telephone Encounter - An Ta APRN.CNP [...] EDT Received call from Maximus MERCADO with [facility]. Patient was admitted to facility today. Maximus asking for clarification on when patient should resume Coumadin and dosage as well as when next INR needs to be drawn. Maximus requests orders be faxed to [phone] or called to [phone]. Maximus requested updated medication list be faxed. Faxed per request. Please review and advise, Una Garcia RN * Telephone Encounter - Nury nAdres RPh - 10/25/2021 12:54 PM EDT Spoke to patient. She is staying with her daughter. She is currently off warfarin and waiting for call back from Dr. Iraheta with instructions on when toresume. * Telephone Encounter - Nury Andres RPh - 10/23/2021 4:30 PM EDT Called patient and left VM to call PAC at [phone]. Is she is Assisted Living facility? documented in this encounterMercy Health St. [facility]08-04-2022 Miscellaneous Notes* Telephone Encounter - Yoly Clayton Ma - 10/18/2021 3:47 PM EDT Patient currently being seen in [facility] ER. * Telephone Encounter - An Ta APRN.CNP - 10/18/2021 3:39 PM EDT Please get [...] is scheduled for blood transfusion today at [facility] her hemoglobin is 6.5 and daughter has called transfusion center at [facility] and left message. Eloisa did home COVID test and mother was positive. documented in this encounterMercy Health St. Rita'[facility]08-03-2022 Miscellaneous Notes* Telephone Encounter - Jerrica Rothman [facility] - 10/17/2021 3:58 PM EDT Christian Landrum was called for anticoagulation follow-up. [...] status. Jerrica Rothman PharmD Pharmacy Anticoagulation Clinic * [...] RN - 10/17/2021 12:07 PM EDT Pts daugher called and reports she was [...] 2.1 now? Blood tranfusion orders faxed to [facility] Please review and advise. Nury Guerin LPN * Telephone Encounter - Jerrica Rothman [facility] - 10/17/2021 9:12 AM EDT INR yesterday (10/16) was 2.1 via Biotel. * Telephone Encounter - Galina Iraheta MD - 10/16/2021 6:32 PM EDT We will have to transfuse 2 units of RBcs to patient Please get the forms for [facility] and inform patient of the same * Telephone Encounter - Tesha Arias [facility] - 10/16/2021 6:01 PM EDT Called and stp- per Dr. Iraheta pt to hold off on warfarin. Pt's Hgb was 6.5 today, will reach out to Dr. Iraheta for clarification on resuming anticoag Nirmal AragonD documented in this encounterMercy Health St. Rita'[facility]08-03-2022 Miscellaneous Notes* Telephone Encounter - Ramila Castro LPN - 10/17/2021 2:00 PM EDT Soraya with [facility] Marge called and states pt is coming in for a cross and type. Identified pt withname and date of . Requested a copy of last H & H, faxed CBC to [phone]. Ramila Castro LPN documented in this encounterMercy Health St. Rita'[facility]08-01-2022 Miscellaneous Notes* Telephone Encounter - Nury Guerin [...] this medication. Advice. 4. Moving pt to [facility] 10-22-21. Please advise daughter on cell phone or send a teams message Gia Ford ([facility])on teams. documented in this encounterMercy Health St. Rita'[facility] Center08-01-2022 Miscellaneous Notes* Telephone Encounter - Vito Jay RP - 10/15/2021 11:47 AM EDT [facility] Ambulatory [facility]acy Anticoagulation Clinic Anticoagulation Episode Summary Anticoagulation Care Providers Provider Role Specialty Phone number Galina Iraheta MD [facility] Internal Medicine [phone] Christian Landrum is a 86 year old [...] Pharmacy Anticoagulation Clinic Pharmacy Anticoagulation Clinic Pager: [phone]. documented in this encounterMercy Health St. Rita'[facility]07-28-2022 History of Present illness Narrative* Jeancarlos Hooker [...] removed with a cold snare. D&C at [facility] a month or two ago for uterine [...] Age of Onset other ( age 60 MS) Mother hypertension and TB other (pancreatic cancer) [...] MD October 11, 2021 [address]Mer[address] Health [address]. Rita'[facility]07-13-2022 NoteHNO ID: [id number] Author: Basilia Hernández MD Service: ? Author [...] >=60 mL/min/1.73m? 79 Medical and Symptom History: COMMERCIAL LOAN OFFICER HISTORY: Last Pap: Date:04/18/20 NIL; Last Mammogram: [...] - APPENDECTOMY - BIOPSY BREAST OPEN INCISIONAL 1979' left breast twice - BREAST LEFT FINE [...] - HYSTEROSCOPY (more content not included)...[facility] 09-26-2021 Instructions* Patient Instructions* Basilia Hernández MD - 09/26/2021 2:57 PM EDT Follow up with Dr. Hernández in 3 months Schedule appointment with infectious disease Start Hiprex Continue vaginal estrogen Consider trying D-mannose Your doctor has placed a standing order for urine culture. When you have symptoms of a urine infection, go to a [facility] lab facility and submit a urine specimen [...] ask any laboratory employee. documented in this encounterMercy Health St. Rita'[facility]07-13-2022 History of Present illness Narrative* Basilia Hernández [...] >=60 mL/min/1.73m 79 Medical and Symptom History: COMMERCIAL LOAN OFFICER HISTORY: Last Pap: Date:04/18/20 NIL; Last Mammogram: [...] HX TONSILLECTOMY HX TONSILLECTOMY PRIMARY/SECONDARY <AGE 13 194 Tonsillectomy PAST MEDICAL HISTORY Diagnosis Date Abdominal [...] benign mass on liver PMR (polymyalgia rheumatica) ([facility]) 2012 Pure hypercholesterolemia Snoring Squamous cell [...] Age of Onset other ( age 60 MS) Mother hypertension and TB other (pancreatic cancer) [...] tablet by mouth twice daily with meals. mtybuxy-medifmxnt-nxatguc D3 500 mg-5 mcg (200 unit) per [...] ROS obtained by others. Basilia Hernández MD Neonatologist offered: Patient accepts, visit chaperoned by Jane [...] Post Wall - Normal support Cervix / [place] - Normal support POP-Q: Prolapse Noted: No [...] mail. Basilia Hernández MD documented in this encounterMercy Health St. Rita'[facility]07-06-2022 Miscellaneous Notes* Telephone Encounter - Jerrica Rothman RPh - 09/19/2021 11:03 AM EDT [employer] message sent for therapeutic INR. documented in this encounterMercy Health St. Rita'S [facility] Center07-05-2022 History of Present illness Narrative* Cassidy Arreola APRN.[facility] - 09/18/2021 9:29 AM EDT Chief Complaint [...] for both; strong for ER, moderate for NC). HER-2 3+. Had been using Estrace cream [...] Wire Localization: Wire absent Lymph Node Sampling: [place] lymph node(s) Tumor size: Size of largest [...] Das. She was then admitted to [facility] for weakness end of June. Admitted to [place] for UTI end of July. During that time her . S/p underwent hysteroscopy D&C at [facility] on 08/23/[address] Hebert. Path. Benign. 09/11/21-vaginal bleeding was seen by Dr. Hebert. Pt. participating in PT. Appetite:I've been eating. My sister has been here from [place]. Energy level:I sleep a lot. Denies fevers. [...] Skin:denies rashes/lesions Heme:denies bleeding since visit with COMMERCIAL LOAN OFFICER The ROS is otherwise negative. Past medical [...] 174.3, V86.0, ICD10: C50.311, Z17.0 pT1b pN0(sln) ER/NC positive, HER2 positive invasive ductal carcinoma the [...] visit. Cassidy Arreola APRN.INGE documented in this encounterMercy Health St. Rita[facility]07-05-2022 Nurse Note* Sadie Lin LPN - 09/18/2021 9:17 AM EDT Est. Pt. 6 month f/u Sadie Lin LPN documented in this encounterMercy Health St. Rita'[facility] Center06-29-2022 Miscellaneous Notes* Telephone Encounter - Jerrica Rothman RP - 09/12/2021 11:32 AM EDT Stp - reviewed Dr. King's note from yesterday's OV. Pt reports no further issues - bleeding concerns. She resumed yesterday taking 1mg - 09/11. Advised her to continue her current dose and retest next week. Jerrica Rothman PharmD * Telephone Encounter - Maria A Camacho ([place]) - 09/12/2021 9:03 AM EDT PATIENT CALL Patient called call center regarding procedure. Patient called and left message after hours that stated she had her procedure on 09/11 and MD had advised her to resume her warfarin. Patient wanted to call and let [facility] know. Patient can be reached at [phone]. Maria A Camacho ([place]) * Telephone Encounter - Nury Andres RPh - 09/11/2021 8:49 AM EDT Spoke to patient. She has not taken warfarin for past 5 days due to vaginal bleeding. She has a n appointment today with rn gyn for cauterization. Advised she call PAC back after appt to let us know when she can resume warfarin. PT INR (no units) Date Value 06/06/2021 3.1 (biotel) 05/23/2021 2.5 (biotel) 03/15/2021 1.9 INR Home CoaguChek (no units) Date Value 09/10/2021 1.6 09/04/2021 2.0 08/22/2021 2.7 Nury Andres Pharmacist * Telephone Encounter - Kevin Torres ([place]) - 09/11/2021 8:42 AM EDT PATIENT CALL Judith called call center regarding results and left message after hours 09/10/2021 at 7:30pm. Patient also called and left message (transferred from PSS line) stating that she is having some bleedingissues and hasn't taken warfarin for at least five days. Please see yesterdays CORPORATE COMMUNICATIONS SPECIALIST encounter as well. Received call from [employer] Remote INR for patient. Patient tested on 09/10/2021 with out of range INR result of 1.6. PT INR (no units) Date Value 06/06/2021 3.1 (biotel) 05/23/2021 2.5 (biotel) 03/15/2021 1.9 INR Home CoaguChek (no units) Date Value 09/10/2021 1.6 09/04/2021 2.0 08/22/2021 2.7 Patient can be reached at [phone]. Kevin Torres, Pharmacy Anticoagulation Clinic documented in this encounterMercy Health St. 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 difficile colitis 2013 Coronary artery disease Diverticulitis 2012 Diverticulosis of [...] Age of Onset other ( age 60 MS) Mother hypertension and TB other (pancreatic cancer) [...] Take 1 tablet by mouth once daily. srqpzjm-yzcqifwbq-lsudcox D3 500 mg-5 mcg (200 unit) per [...] GENERAL: pleasant, female in no apparent distress COMMERCIAL LOAN OFFICER: normal external genitalia, no blood present. Vagina [...] Making Jayde Hebert MD documented in this encounterMercy Health St. Rita'[facility] Center06-27-2022 Miscellaneous Notes* Telephone Encounter - Juliet Cuevas [...] with daughter. She has an appointment with Uro/Tool Mechanic, Dr. Hernández on 09/26. Is this ok [...] urology. Jayde Hebert MD documented in this encounterMercy Health St. Rita'S [facility] Center06-24-2022 Miscellaneous Notes* Telephone Encounter - An Ta APRN.INGE - 09/07/2021 8:02 AM EDT Noted. Please let us know if they need anything else from us. Thank you An Ta APRN.CNP * Telephone Encounter - Maria A Khanna RN - 09/06/2021 12:55 PM EDT Sheryl with [facility] called and reports Pt is thinking of coming and living in their Assisted Living facilities. Sent Face sheet and last OV notes to fax # [phone]. documented in this encounterMercy Health St. Rita'S Medical Center06-22-2022 History of Present illness Narrative* Cecilio Ibarra DO - 09/05/2021 12:58 PM EDT Images from the original note were not included. [facility] Luis Miguel Kolb Department of Cardiovascular Medicine Established HPI: Christian Landrum is a 86 year old female with a history of paroxysmal AF (coumadin), rheumaticmitral valve regurgitation, HTN, HLD, STUART, breast cancer, PMR, and OA. She was last seen by me on 12/22/20 where a pharmacologic nuclear stress test was ordered and seen for telephone visit by DE ICER ELEMENT WINDER 04/19/21. MPI showed no evidence of ischemia or infarction. She was hospitalized in June at [facility] and in July 2021 in [place] both for UTI and fever. She continues [...] DO, FACC, FCCP, FACOI documented in this encounterMercy Health St. Rita'S [facility] Center06-22-2022 Miscellaneous Notes* Telephone Encounter - Jerrica Rothman RPh - 09/05/2021 9:09 AM EDT [employer] message sent for INR therapeutic range. documented in this encounterMercy Health St. Rita'S [facility] Center06-17-2022 Miscellaneous Notes* Telephone Encounter - Kamila Bentley LPN - 08/31/2021 7:49 AM EDT Please see pt's mychart message and pended order below. Please advise. Kamila Bentley LPN documented in this encounterMercy Health St. 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 ddizkrs-pymyramoz-nivmcfn D3 500 mg-5 mcg (200 unit) per [...] Making Jayde Hebert MD documented in this encounterMercy Health St. 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 boiiorc-ejvetxxmz-jtialct D3 500 mg-5 mcg (200 unit) per [...] external genitalia normal, normal Bartholin's glands, urethra, Momeyer's glands, no vulvar lesions, good vaginal support, [...] Making Jayde Hebert MD documented in this encounterMercy Health St. Rita'[facility] Center06-12-2022 History of Present illness Narrative* Jayde Hebert MD - 08/26/2021 3:21 PM EDT Patient underwent hysteroscopy D&C at [facility] on 08/23/2021 without complications. She was discharged home with routine instructions and follow-up. Pathology is pending. No discrete polyp visualized. Jayde Hebert MD documented in this encounterMercy Health St. Rita'[facility] Center06-08-2022 Miscellaneous Notes* Telephone Encounter - Jerrica Rothman [facility] - 08/22/2021 10:10 AM EDT [facility] Ambulatory Pharmacy Anticoagulation Clinic Anticoagulation Episode Summary Anticoagulation Care Providers Provider Role Specialty Phone number Galina Iraheta MD [facility] Internal Medicine [phone] Christian Landrum is a 86 year old [...] * Unknown Zestril [Lisinopril] Indication for Warfarin: care home (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 anticoagulants Paroxysmal atrial fibrillation [...] Pharmacy Anticoagulation Clinic Pharmacy Anticoagulation Clinic Pager: [phone] . documented in this encounterMercy Health St. Rita'[facility]06-03-2022 Miscellaneous Notes* Telephone Encounter - Corinna Arenas RPh - 08/17/2021 10:26 AM EDT [facility] Ambulatory [facility]acy Anticoagulation Clinic Anticoagulation Episode Summary Anticoagulation Care Providers Provider Role Specialty Phone number Galina Iraheta MD [facility] Internal Medicine [phone] Christian Landrum is a 86 year old [...] * Unknown Zestril [Lisinopril] Indication for Warfarin: care home (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 anticoagulants Paroxysmal atrial fibrillation (hcc) Anticoagulation Episode Summary Current INR goal: 2.0-3.0 Assessment: INR result of 2.6 is therapeutic Plan: Called and spoke to patient/caregiver Advised patient to continue current weekly dose Next home INR check scheduled on 08/22/2021 Patient is having vaginal bleeding, is scheduled for d&c with polypectomy on 08/23; was advised by COMMERCIAL LOAN OFFICER that warfarin isn't usually held for the procedure Advised to test INR the day prior to ensure it isn't elevated Patient verbalizes understanding of the plan. Patient denies need for refills. Corinna Arenas RPh Clinical Pharmacist, Pharmacy Anticoagulation Clinic Pharmacy Anticoagulation Clinic Pager: [phone] . documented in this encounterMercy Health St. Rita'[facility]06-02-2022 Miscellaneous Notes* Telephone Encounter - Madyson Agosto [...] to call office. Patient is scheduled at [facility] for surgery on 08/29/2021 @ 7:30 am. [facility] will call with arrival time.Phone PAT is 08/23/2021 8:00 am. Patient needs 2 week post-op documented in this encounterMercy Health St. Rita'S [facility] Center06-01-2022 History and physical note * Jayde Hebert [...] tablet by mouth once daily. 90 tablet3 klidhud-bjlpxddkf-cozeklu D3 500 mg-5 mcg (200 unit) per [...] Age of Onset other ( age 60 MS) Mother hypertension and TB other (pancreatic cancer) [...] allergies Jayde Hebert M.D. documented in this encounterMercy Health St. 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 grwqocl-aujnejyzs-oiejwwg D3 500 mg-5 mcg (200 unit) per [...] one but not sure this is satisfactory penitentiary. Use vaginal estrogne 2-3 times a week Patient is likely going to need a cholecystectomy but her surgeon wanted her to have the hysteroscopy D&C and the pathology returned on that before she proceeded with the more invasive cholecystectomy. Medical Decision Making Jayde Hebert MD documented in this encounterMercy Health St. Rita'[facility] Center06-01-2022 Miscellaneous Notes* Telephone Encounter - An Ta APRN.CNP - 08/15/2021 9:01 AM EDT Patient admitted to hospital. Nitrofurantion discontinued. An Ta APRN.CNP documented in this encounterMercy Health St. Rita'S [facility] Center05-31-2022 Miscellaneous Notes* Telephone Encounter - Nury Bishopdoug LUISA - 08/14/2021 4:[address] [facility] Ambulatory Pharmacy Anticoagulation Clinic Anticoagulation Episode Summary Anticoagulation Care Providers Provider Role Specialty Phone number Galina Iraheta MD [facility] Internal Medicine [phone] Christian Landurm is a 86 year old year old [...] Pharmacy Anticoagulation Clinic Pharmacy Anticoagulation Clinic Pager: [phone] . documented in this encounterMercy Health St. Rita'[facility]05-29-2022 Miscellaneous Notes* Telephone Encounter - Daysi Riddle [...] Outcome: Daughter will drive her mother to [facility]. Reason for Disposition [1] Unable to urinate (or only a few drops) > 4 hours AND [2] bladder feels very full (e.g., palpable bladder or strong urge to urinate) Protocols used: URINE - BLOOD IN-ADULT- documented in this encounterMercy Health St. Rita'S [facility] Center05-27-2022 Miscellaneous Notes* Telephone Encounter - Maria A [...] An Ta APRN.CNP * Telephone Encounter - Yoyl Clayton Ma - 08/10/2021 4:12 PM EDT Spoke with Pam in lab who spoke with [facility] lab,[facility] was having issues with those orders [...] you An Ta APRN.CNP documented in this encounterMercy Health St. Rita'S [facility] Center05-25-2022 History of Present illness Narrative* An Older, DE ICER ELEMENT WINDER.CONSULTING ACTUARY - 08/08/2021 2:12 PM EDT CC: Patient presents with: Recheck: Hosp follow up, HPI Christian Landrum is a 86 year old female who presents today for hospital follow- up with daughter who drove her to appointment. Facility: [facility] [address] [place] Date of visit: 07/06/21 - 07/12/21 Reason [...] polyp is addressed and she sees her textiles printer for her cirrhosis. Post discharge she spent 2 weks for OT and PT at [facility] where is currently on hospice. Now with [...] colitis 2012 Coronary artery disease Diverticulitis 2009, 2013 Diverticulosis of colon (without mention of hemorrhage) [...] Take 1 tablet by mouth once daily. krtezzd-ayonznckh-havbaay D3 500 mg-5 mcg (200 unit) per [...] Age of Onset other ( age 60 MS) Mother hypertension and TB other (pancreatic cancer) [...] with more than 50% of the total gsca-ff-ivvk time of the visit in counseling / coordination of care. Prescription instructions reviewed with patient as applicable. Potential red flag symptoms discussed with the patient. Reviewed appropriate action plan to take if red flag symptoms occur. Patient agreeable to treatment plan. An Ta APRN.CNP documented in this encounterMercy Health St. Rita'[facility]05-17-2022 Miscellaneous Notes* Telephone Encounter - Nury Andres RP - 07/31/2021 4:[address] [facility] Ambulatory Pharmacy Anticoagulation Clinic Anticoagulation Episode Summary Anticoagulation Care Providers Provider Role Specialty Phone number Galina Iraheta MD Responsible Internal Medicine [phone] Christian Landrum is a 86 year old [...] Pharmacy Anticoagulation Clinic Pharmacy Anticoagulation Clinic Pager: [phone] . documented in this encounterMercy Health St. [facility]05-13-2022 Miscellaneous Notes* Telephone Encounter - Maria A Khanna RN - 07/27/2021 12:59 PM EDT Basilia Flowers [facility] called and is notified of providers message. She voices understanding. Maria A Khanna RN * Telephone Encounter - An Ta APRN.CNP - 07/27/2021 12:41 PM EDT Provider agrees to follow. Thank you An Ta APRN.CNP * Telephone Encounter - Violet Rockwell RN - 07/27/2021 10:59 AM EDT [facility], [facility], reports patient is being discharged from [facility] tomorrow with orders for PT & OT. Asking if pcp agrees to follow? Asking for reply today, as they plan to see patient on Friday. [phone] Rita'S [facility]05-10-2022 Miscellaneous Notes* Telephone Encounter - Jocy Scherer - 07/24/2021 2:04 PM EDT LVM with patient and sent msg. Appointment with Shalom on 07/27 needs rescheduled first available. Appt has been cancelled. documented in this encounterMercy Health St. Rita'S [facility]05-06-2022 Miscellaneous Notes* Telephone Encounter - Juliet Cuevas [...] more, but she ended up at [facility] last month for a week d/t multiple medical problems one of thema UTI. Calling today because she is starting with urinary frequency again and worsening vaginal dryness. She has not used estrace cream since 02/2021 sometime. Offered appointment today, but patient is still at [facility] for rehab. Advised to speak [...] advise. Inge Salter RN documented in this encounterMercy Health St. Rita'S [facility]05-04-2022 Miscellaneous Notes* Telephone Encounter - Vania Guillory RN - 07/18/2021 10:16 AM EDT Patient placed on [facility] LTC list for follow up. Letyt Guillory RN Pharmacy Anticoagulation Clinic * Telephone Encounter - Marlin Ansari RPh - 07/18/2021 9:54 AM EDT INR was due today. Reviewed notes and found pt was recently hospitalized and discharged to SNF. Will forward to PAC team to f/u. documented in this encounterMercy Health St. Rita'S [facility] Center04-22-2022 History of Past illness Narrative* Problem Noted Date Resolved Date Dysuria 07/06/2021 07/08/2021 Obesity, Class I, BMI 30-34.9 01/12/2021 GI bleed 01/12/2021 01/14/2021 Acute blood loss anemia 01/12/2021 01/15/20 LLQ pain 09/05/2017 04/09/2021 Overview: Added automatically from request for surgery [id number] Malignant neoplasm of lower- inner quadrant of right breast of female, estrogen receptor positive 06/03/2017 07/06/2021 Personal history of breast cancer 12/18/2016 04/09/2021 Overview: Added automatically from request for surgery [id number] Permanent atrial fibrillation 12/26/2015 Diverticulitis of large [...] of this encounter (statuses as of 07/11/2021) [facility]04-22-2022 History of Past illness Narrative* Problem Noted Date Resolved Date Dysuria 07/06/2021 07/08/2021 Obesity, Class I, BMI 30-34.9 01/12/2021 GI bleed 01/12/2021 01/14/2021 Acute blood loss anemia 01/12/2021 01/15/20 LLQ pain 09/05/2017 04/09/2021 Overview: Added automatically from request for surgery [id number] Malignant neoplasm of lower- inner quadrant of right breast of female, estrogen receptor positive 06/03/2017 07/06/2021 Personal history of breast cancer 12/18/2016 04/09/2021 Overview: Added automatically from request for surgery [id number] Permanent atrial fibrillation 12/26/2015 Diverticulitis of large [...] of this encounter (statuses as of 07/16/2021) [facility]04-22-2022 History of Past illness Narrative* Problem Noted Date Resolved Date Dysuria 07/06/2021 07/08/2021 Obesity, Class I, BMI 30-34.9 01/12/2021 GI bleed 01/12/2021 01/14/2021 Acute blood loss anemia 01/12/2021 01/15/20 LLQ pain 09/05/2017 04/09/2021 Overview: Added automatically from request for surgery [id number] Malignant neoplasm of lower- inner quadrant of right breast of female, estrogen receptor positive 06/03/2017 07/06/2021 Personal history of breast cancer 12/18/2016 04/09/2021 Overview: Added automatically from request for surgery [id number] Permanent atrial fibrillation 12/26/2015 Diverticulitis of large [...] of this encounter (statuses as of 07/18/2021) [facility]04-[facility]-2022 History of Past illness Narrative* Problem Noted Date Resolved Date Dysuria 07/06/2021 07/08/2021 Obesity, Class I, BMI 30-34.9 01/12/2021 GI bleed 01/12/2021 01/14/2021 Acute blood loss anemia 01/12/2021 01/15/20 LLQ pain 09/05/2017 04/09/2021 Overview: Added automatically from request for surgery [id number] Malignant neoplasm of lower- inner quadrant of right breast of female, estrogen receptor positive 06/03/2017 07/06/2021 Personal history of breast cancer 12/18/2016 04/09/2021 Overview: Added automatically from request for surgery [id number] Permanent atrial fibrillation 12/26/2015 Diverticulitis of large [...] of this encounter (statuses as of 07/20/2021) [facility]04-[facility]-2022 History of Past illness Narrative* Problem Noted Date Resolved Date Dysuria 07/06/2021 07/08/2021 Obesity, Class I, BMI 30-34.9 01/12/2021 GI bleed 01/12/2021 01/14/2021 Acute blood loss anemia 01/12/2021 01/15/20 LLQ pain 09/05/2017 04/09/2021 Overview: Added automatically from request for surgery [id number] Malignant neoplasm of lower- inner quadrant of right breast of female, estrogen receptor positive 06/03/2017 07/06/2021 Personal history of breast cancer 12/18/2016 04/09/2021 Overview: Added automatically from request for surgery [id number] Permanent atrial fibrillation 12/26/2015 Diverticulitis of large [...] of this encounter (statuses as of 07/24/2021) [facility]04[facility] History of Past illness Narrative* Problem Noted Date Resolved Date Dysuria 07/06/2021 07/08/2021 Obesity, Class I, BMI 30-34.9 01/12/2021 GI bleed 01/12/2021 01/14/2021 Acute blood loss anemia 01/12/2021 01/15/20 LLQ pain 09/05/2017 04/09/2021 Overview: Added automatically from request for surgery [id number] Malignant neoplasm of lower- inner quadrant of right breast of female, estrogen receptor positive 06/03/2017 07/06/2021 Personal history of breast cancer 12/18/2016 04/09/2021 Overview: Added automatically from request for surgery [id number] Permanent atrial fibrillation 12/26/2015 Diverticulitis of large [...] of this encounter (statuses as of 07/24/2021) [facility]04[facility] History of Past illness Narrative* Problem Noted Date Resolved Date Dysuria 07/06/2021 07/08/2021 Obesity, Class I, BMI 30-34.9 01/12/2021 GI bleed 01/12/2021 01/14/2021 Acute blood loss anemia 01/12/2021 01/15/20 LLQ pain 09/05/2017 04/09/2021 Overview: Added automatically from request for surgery [id number] Malignant neoplasm of lower- inner quadrant of right breast of female, estrogen receptor positive 06/03/2017 07/06/2021 Personal history of breast cancer 12/18/2016 04/09/2021 Overview: Added automatically from request for surgery [id number] Permanent atrial fibrillation 12/26/2015 Diverticulitis of large [...] of this encounter (statuses as of 07/27/2021) [facility]04[facility] History of Past illness Narrative* Problem Noted Date Resolved Date Dysuria 07/06/2021 07/08/2021 Obesity, Class I, BMI 30-34.9 01/12/2021 GI bleed 01/12/2021 01/14/2021 Acute blood loss anemia 01/12/2021 01/15/20 LLQ pain 09/05/2017 04/09/2021 Overview: Added automatically from request for surgery [id number] Malignant neoplasm of lower- inner quadrant of right breast of female, estrogen receptor positive 06/03/2017 07/06/2021 Personal history of breast cancer 12/18/2016 04/09/2021 Overview: Added automatically from request for surgery [id number] Permanent atrial fibrillation 12/26/2015 Diverticulitis of large [...] of this encounter (statuses as of 07/30/2021) [facility]04[facility]22 History of Past illness Narrative* Problem Noted Date Resolved Date Dysuria 07/06/2021 07/08/2021 Obesity, Class I, BMI 30-34.9 01/12/2021 GI bleed 01/12/2021 01/14/2021 Acute blood loss anemia 01/12/2021 01/15/20 LLQ pain 09/05/2017 04/09/2021 Overview: Added automatically from request for surgery [id number] Malignant neoplasm of lower- inner quadrant of right breast of female, estrogen receptor positive 06/03/2017 07/06/2021 Personal history of breast cancer 12/18/2016 04/09/2021 Overview: Added automatically from request for surgery [id number] Permanent atrial fibrillation 12/26/2015 Diverticulitis of large [...] of this encounter (statuses as of 07/31/2021) [facility]04[facility] History of Past illness Narrative* Problem Noted Date Resolved Date Dysuria 07/06/2021 07/08/2021 Obesity, Class I, BMI 30-34.9 01/12/2021 GI bleed 01/12/2021 01/14/2021 Acute blood loss anemia 01/12/2021 01/15/20 LLQ pain 09/05/2017 04/09/2021 Overview: Added automatically from request for surgery [id number] Malignant neoplasm of lower- inner quadrant of right breast of female, estrogen receptor positive 06/03/2017 07/06/2021 Personal history of breast cancer 12/18/2016 04/09/2021 Overview: Added automatically from request for surgery [id number] Permanent atrial fibrillation 12/26/2015 Diverticulitis of large [...] of this encounter (statuses as of 08/08/2021) [facility]04-[facility]-2022 History of Past illness Narrative* Problem Noted Date Resolved Date Dysuria 07/06/2021 07/08/2021 Obesity, Class I, BMI 30-34.9 01/12/2021 GI bleed 01/12/2021 01/14/2021 Acute blood loss anemia 01/12/2021 01/15/20 LLQ pain 09/05/2017 04/09/2021 Overview: Added automatically from request for surgery [id number] Malignant neoplasm of lower- inner quadrant of right breast of female, estrogen receptor positive 06/03/2017 07/06/2021 Personal history of breast cancer 12/18/2016 04/09/2021 Overview: Added automatically from request for surgery [id number] Permanent atrial fibrillation 12/26/2015 Diverticulitis of large [...] of this encounter (statuses as of 08/10/2021) [facility]04[facility] History of Past illness Narrative* Problem Noted Date Resolved Date Dysuria 07/06/2021 07/08/2021 Obesity, Class I, BMI 30-34.9 01/12/2021 GI bleed 01/12/2021 01/14/2021 Acute blood loss anemia 01/12/2021 01/15/20 LLQ pain 09/05/2017 04/09/2021 Overview: Added automatically from request for surgery [id number] Malignant neoplasm of lower- inner quadrant of right breast of female, estrogen receptor positive 06/03/2017 07/06/2021 Personal history of breast cancer 12/18/2016 04/09/2021 Overview: Added automatically from request for surgery [id number] Permanent atrial fibrillation 12/26/2015 Diverticulitis of large [...] of this encounter (statuses as of 08/10/2021) [facility]04[facility] History of Past illness Narrative* Problem Noted Date Resolved Date Dysuria 07/06/2021 07/08/2021 Obesity, Class I, BMI 30-34.9 01/12/2021 GI bleed 01/12/2021 01/14/2021 Acute blood loss anemia 01/12/2021 01/15/20 LLQ pain 09/05/2017 04/09/2021 Overview: Added automatically from request for surgery [id number] Malignant neoplasm of lower- inner quadrant of right breast of female, estrogen receptor positive 06/03/2017 07/06/2021 Personal history of breast cancer 12/18/2016 04/09/2021 Overview: Added automatically from request for surgery [id number] Permanent atrial fibrillation 12/26/2015 Diverticulitis of large [...] of this encounter (statuses as of 08/12/2021) [facility]04[facility] History of Past illness Narrative* Problem Noted Date Resolved Date Dysuria 07/06/2021 07/08/2021 Obesity, Class I, BMI 30-34.9 01/12/2021 GI bleed 01/12/2021 01/14/2021 Acute blood loss anemia 01/12/2021 01/15/20 LLQ pain 09/05/2017 04/09/2021 Overview: Added automatically from request for surgery [id number] Malignant neoplasm of lower- inner quadrant of right breast of female, estrogen receptor positive 06/03/2017 07/06/2021 Personal history of breast cancer 12/18/2016 04/09/2021 Overview: Added automatically from request for surgery [id number] Permanent atrial fibrillation 12/26/2015 Diverticulitis of large [...] of this encounter (statuses as of 08/14/2021) [facility]04[facility] History of Past illness Narrative* Problem Noted Date Resolved Date Dysuria 07/06/2021 07/08/2021 Obesity, Class I, BMI 30-34.9 01/12/2021 GI bleed 01/12/2021 01/14/2021 Acute blood loss anemia 01/12/2021 01/15/20 21 LLQ pain 09/05/2017 04/09/2021 Overview: Added automatically from request for surgery [id number] Malignant neoplasm of lower- inner quadrant of right breast of female, estrogen receptor positive 06/03/2017 07/06/2021 Personal history of breast cancer 12/18/2016 04/09/2021 Overview: Added automatically from request for surgery [id number] Permanent atrial fibrillation 12/26/2015 Diverticulitis of large [...] of this encounter (statuses as of 08/15/2021) [facility]04[facility] History of Past illness Narrative* Problem Noted Date Resolved Date Dysuria 07/06/2021 07/08/2021 Obesity, Class I, BMI 30-34.9 01/12/2021 GI bleed 01/12/2021 01/14/2021 Acute blood loss anemia 01/12/2021 01/15/20 LLQ pain 09/05/2017 04/09/2021 Overview: Added automatically from request for surgery [id number] Malignant neoplasm of lower- inner quadrant of right breast of female, estrogen receptor positive 06/03/2017 07/06/2021 Personal history of breast cancer 12/18/2016 04/09/2021 Overview: Added automatically from request for surgery [id number] Permanent atrial fibrillation 12/26/2015 Diverticulitis of large [...] of this encounter (statuses as of 08/16/2021) [facility]04[facility]22 History of Past illness Narrative* Problem Noted Date Resolved Date Dysuria 07/06/2021 07/08/2021 Obesity, Class I, BMI 30-34.9 01/12/2021 GI bleed 01/12/2021 01/14/2021 Acute blood loss anemia 01/12/2021 01/15/20 21 LLQ pain 09/05/2017 04/09/2021 Overview: Added automatically from request for surgery [id number] Malignant neoplasm of lower- inner quadrant of right breast of female, estrogen receptor positive 06/03/2017 07/06/2021 Personal history of breast cancer 12/18/2016 04/09/2021 Overview: Added automatically from request for surgery [id number] Permanent atrial fibrillation 12/26/2015 Diverticulitis of large [...] of this encounter (statuses as of 08/17/2021) [facility]04[facility] History of Past illness Narrative* Problem Noted Date Resolved Date Dysuria 07/06/2021 07/08/2021 Obesity, Class I, BMI 30-34.9 01/12/2021 GI bleed 01/12/2021 01/14/2021 Acute blood loss anemia 01/12/2021 01/15/20 21 LLQ pain 09/05/2017 04/09/2021 Overview: Added automatically from request for surgery [id number] Malignant neoplasm of lower- inner quadrant of right breast of female, estrogen receptor positive 06/03/2017 07/06/2021 Personal history of breast cancer 12/18/2016 04/09/2021 Overview: Added automatically from request for surgery [id number] Permanent atrial fibrillation 12/26/2015 Diverticulitis of large [...] of this encounter (statuses as of 08/20/2021) [facility]04[facility] History of Past illness Narrative* Problem Noted Date Resolved Date Dysuria 07/06/2021 07/08/2021 Obesity, Class I, BMI 30-34.9 01/12/2021 GI bleed 01/12/2021 01/14/2021 Acute blood loss anemia 01/12/2021 01/15/20 21 LLQ pain 09/05/2017 04/09/2021 Overview: Added automatically from request for surgery [id number] Malignant neoplasm of lower- inner quadrant of right breast of female, estrogen receptor positive 06/03/2017 07/06/2021 Personal history of breast cancer 12/18/2016 04/09/2021 Overview: Added automatically from request for surgery [id number] Permanent atrial fibrillation 12/26/2015 Diverticulitis of large [...] of this encounter (statuses as of 08/22/2021) [facility]04[facility] History of Past illness Narrative* Problem Noted Date Resolved Date Dysuria 07/06/2021 07/08/2021 Obesity, Class I, BMI 30-34.9 01/12/2021 GI bleed 01/12/2021 01/14/2021 Acute blood loss anemia 01/12/2021 01/15/20 21 LLQ pain 09/05/2017 04/09/2021 Overview: Added automatically from request for surgery [id number] Malignant neoplasm of lower- inner quadrant of right breast of female, estrogen receptor positive 06/03/2017 07/06/2021 Personal history of breast cancer 12/18/2016 04/09/2021 Overview: Added automatically from request for surgery [id number] Permanent atrial fibrillation 12/26/2015 Diverticulitis of large [...] of this encounter (statuses as of 08/26/2021) [facility]04[facility] History of Past illness Narrative* Problem Noted Date Resolved Date Dysuria 07/06/2021 07/08/2021 Obesity, Class I, BMI 30-34.9 01/12/2021 GI bleed 01/12/2021 01/14/2021 Acute blood loss anemia 01/12/2021 01/15/20 LLQ pain 09/05/2017 04/09/2021 Overview: Added automatically from request for surgery [id number] Malignant neoplasm of lower- inner quadrant of right breast of female, estrogen receptor positive 06/03/2017 07/06/2021 Personal history of breast cancer 12/18/2016 04/09/2021 Overview: Added automatically from request for surgery [id number] Permanent atrial fibrillation 12/26/2015 Diverticulitis of large [...] of this encounter (statuses as of 08/26/2021) [facility] History of Past illness Narrative* Problem Noted Date Resolved Date Dysuria 07/06/2021 07/08/2021 Obesity, Class I, BMI 30-34.9 01/12/2021 GI bleed 01/12/2021 01/14/2021 Acute blood loss anemia 01/12/2021 01/15/20 21 LLQ pain 09/05/2017 04/09/2021 Overview: Added automatically from request for surgery [id number] Malignant neoplasm of lower- inner quadrant of right breast of female, estrogen receptor positive 06/03/2017 07/06/2021 Personal history of breast cancer 12/18/2016 04/09/2021 Overview: Added automatically from request for surgery [id number] Permanent atrial fibrillation 12/26/2015 Diverticulitis of large [...] of this encounter (statuses as of 08/26/2021) [facility]04[facility] History of Past illness Narrative* Problem Noted Date Resolved Date Dysuria 07/06/2021 07/08/2021 Obesity, Class I, BMI 30-34.9 01/12/2021 GI bleed 01/12/2021 01/14/2021 Acute blood loss anemia 01/12/2021 01/15/20 LLQ pain 09/05/2017 04/09/2021 Overview: Added automatically from request for surgery [id number] Malignant neoplasm of lower- inner quadrant of right breast of female, estrogen receptor positive 06/03/2017 07/06/2021 Personal history of breast cancer 12/18/2016 04/09/2021 Overview: Added automatically from request for surgery [id number] Permanent atrial fibrillation 12/26/2015 Diverticulitis of large [...] of this encounter (statuses as of 08/26/2021) [facility] History of Past illness Narrative* Problem Noted Date Resolved Date Dysuria 07/06/2021 07/08/2021 Obesity, Class I, BMI 30-34.9 01/12/2021 GI bleed 01/12/2021 01/14/2021 Acute blood loss anemia 01/12/2021 01/15/20 LLQ pain 09/05/2017 04/09/2021 Overview: Added automatically from request for surgery [id number] Malignant neoplasm of lower- inner quadrant of right breast of female, estrogen receptor positive 06/03/2017 07/06/2021 Personal history of breast cancer 12/18/2016 04/09/2021 Overview: Added automatically from request for surgery [id number] Permanent atrial fibrillation 12/26/2015 Diverticulitis of large [...] of this encounter (statuses as of 08/28/2021) [facility] History of Past illness Narrative* Problem Noted Date Resolved Date Dysuria 07/06/2021 07/08/2021 Obesity, Class I, BMI 30-34.9 01/12/2021 GI bleed 01/12/2021 01/14/2021 Acute blood loss anemia 01/12/2021 01/15/20 21 LLQ pain 09/05/2017 04/09/2021 Overview: Added automatically from request for surgery [id number] Malignant neoplasm of lower- inner quadrant of right breast of female, estrogen receptor positive 06/03/2017 07/06/2021 Personal history of breast cancer 12/18/2016 04/09/2021 Overview: Added automatically from request for surgery [id number] Permanent atrial fibrillation 12/26/2015 Diverticulitis of large [...] of this encounter (statuses as of 08/28/2021) [facility] History of Past illness Narrative* Problem Noted Date Resolved Date Dysuria 07/06/2021 07/08/2021 Obesity, Class I, BMI 30-34.9 01/12/2021 GI bleed 01/12/2021 01/14/2021 Acute blood loss anemia 01/12/2021 01/15/20 21 LLQ pain 09/05/2017 04/09/2021 Overview: Added automatically from request for surgery [id number] Malignant neoplasm of lower- inner quadrant of right breast of female, estrogen receptor positive 06/03/2017 07/06/2021 Personal history of breast cancer 12/18/2016 04/09/2021 Overview: Added automatically from request for surgery [id number] Permanent atrial fibrillation 12/26/2015 Diverticulitis of large [...] of this encounter (statuses as of 08/30/2021) [facility] History of Past illness Narrative* Problem Noted Date Resolved Date Dysuria 07/06/2021 07/08/2021 Obesity, Class I, BMI 30-34.9 01/12/2021 GI bleed 01/12/2021 01/14/2021 Acute blood loss anemia 01/12/2021 01/15/20 21 LLQ pain 09/05/2017 04/09/2021 Overview: Added automatically from request for surgery [id number] Malignant neoplasm of lower- inner quadrant of right breast of female, estrogen receptor positive 06/03/2017 07/06/2021 Personal history of breast cancer 12/18/2016 04/09/2021 Overview: Added automatically from request for surgery [id number] Permanent atrial fibrillation 12/26/2015 Diverticulitis of large [...] of this encounter (statuses as of 08/31/2021) [facility] History of Past illness Narrative* Problem Noted Date Resolved Date Dysuria 07/06/2021 07/08/2021 Obesity, Class I, BMI 30-34.9 01/12/2021 GI bleed 01/12/2021 01/14/2021 Acute blood loss anemia 01/12/2021 01/15/20 21 LLQ pain 09/05/2017 04/09/2021 Overview: Added automatically from request for surgery [id number] Malignant neoplasm of lower- inner quadrant of right breast of female, estrogen receptor positive 06/03/2017 07/06/2021 Personal history of breast cancer 12/18/2016 04/09/2021 Overview: Added automatically from request for surgery [id number] Permanent atrial fibrillation 12/26/2015 Diverticulitis of large [...] of this encounter (statuses as of 09/05/2021) [facility] History of Past illness Narrative* Problem Noted Date Resolved Date Dysuria 07/06/2021 07/08/2021 Obesity, Class I, BMI 30-34.9 01/12/2021 GI bleed 01/12/2021 01/14/2021 Acute blood loss anemia 01/12/2021 01/15/20 21 LLQ pain 09/05/2017 04/09/2021 Overview: Added automatically from request for surgery [id number] Malignant neoplasm of lower- inner quadrant of right breast of female, estrogen receptor positive 06/03/2017 07/06/2021 Personal history of breast cancer 12/18/2016 04/09/2021 Overview: Added automatically from request for surgery [id number] Permanent atrial fibrillation 12/26/2015 Diverticulitis of large [...] of this encounter (statuses as of 09/05/2021) [facility] History of Past illness Narrative* Problem Noted Date Resolved Date Dysuria 07/06/2021 07/08/2021 Obesity, Class I, BMI 30-34.9 01/12/2021 GI bleed 01/12/2021 01/14/2021 Acute blood loss anemia 01/12/2021 01/15/20 21 LLQ pain 09/05/2017 04/09/2021 Overview: Added automatically from request for surgery [id number] Malignant neoplasm of lower- inner quadrant of right breast of female, estrogen receptor positive 06/03/2017 07/06/2021 Personal history of breast cancer 12/18/2016 04/09/2021 Overview: Added automatically from request for surgery [id number] Permanent atrial fibrillation 12/26/2015 Diverticulitis of large [...] of this encounter (statuses as of 09/07/2021) [facility] History of Past illness Narrative* Problem Noted Date Resolved Date Dysuria 07/06/2021 07/08/2021 Obesity, Class I, BMI 30-34.9 01/12/2021 GI bleed 01/12/2021 01/14/2021 Acute blood loss anemia 01/12/2021 01/15/20 LLQ pain 09/05/2017 04/09/2021 Overview: Added automatically from request for surgery [id number] Malignant neoplasm of lower- inner quadrant of right breast of female, estrogen receptor positive 06/03/2017 07/06/2021 Personal history of breast cancer 12/18/2016 04/09/2021 Overview: Added automatically from request for surgery [id number] Permanent atrial fibrillation 12/26/2015 Diverticulitis of large [...] of this encounter (statuses as of 09/10/2021) [facility] History of Past illness Narrative* Problem Noted Date Resolved Date Dysuria 07/06/2021 07/08/2021 Obesity, Class I, BMI 30-34.9 01/12/2021 GI bleed 01/12/2021 01/14/2021 Acute blood loss anemia 01/12/2021 01/15/20 21 LLQ pain 09/05/2017 04/09/2021 Overview: Added automatically from request for surgery [id number] Malignant neoplasm of lower- inner quadrant of right breast of female, estrogen receptor positive 06/03/2017 07/06/2021 Personal history of breast cancer 12/18/2016 04/09/2021 Overview: Added automatically from request for surgery [id number] Permanent atrial fibrillation 12/26/2015 Diverticulitis of large [...] of this encounter (statuses as of 09/11/2021) [facility] History of Past illness Narrative* Problem Noted Date Resolved Date Dysuria 07/06/2021 07/08/2021 Obesity, Class I, BMI 30-34.9 01/12/2021 GI bleed 01/12/2021 01/14/2021 Acute blood loss anemia 01/12/2021 01/15/20 21 LLQ pain 09/05/2017 04/09/2021 Overview: Added automatically from request for surgery [id number] Malignant neoplasm of lower- inner quadrant of right breast of female, estrogen receptor positive 06/03/2017 07/06/2021 Personal history of breast cancer 12/18/2016 04/09/2021 Overview: Added automatically from request for surgery [id number] Permanent atrial fibrillation 12/26/2015 Diverticulitis of large [...] of this encounter (statuses as of 09/12/2021) [facility] History of Past illness Narrative* Problem Noted Date Resolved Date Dysuria 07/06/2021 07/08/2021 Obesity, Class I, BMI 30-34.9 01/12/2021 GI bleed 01/12/2021 01/14/2021 Acute blood loss anemia 01/12/2021 01/15/20 21 LLQ pain 09/05/2017 04/09/2021 Overview: Added automatically from request for surgery [id number] Malignant neoplasm of lower- inner quadrant of right breast of female, estrogen receptor positive 06/03/2017 07/06/2021 Personal history of breast cancer 12/18/2016 04/09/2021 Overview: Added automatically from request for surgery [id number] Permanent atrial fibrillation 12/26/2015 Diverticulitis of large [...] of this encounter (statuses as of 09/18/2021) [facility] History of Past illness Narrative* Problem Noted Date Resolved Date Dysuria 07/06/2021 07/08/2021 Obesity, Class I, BMI 30-34.9 01/12/2021 GI bleed 01/12/2021 01/14/2021 Acute blood loss anemia 01/12/2021 01/15/20 LLQ pain 09/05/2017 04/09/2021 Overview: Added automatically from request for surgery [id number] Malignant neoplasm of lower- inner quadrant of right breast of female, estrogen receptor positive 06/03/2017 07/06/2021 Personal history of breast cancer 12/18/2016 04/09/2021 Overview: Added automatically from request for surgery [id number] Permanent atrial fibrillation 12/26/2015 Diverticulitis of large [...] of this encounter (statuses as of 09/18/2021) [facility] [facility]04-22-2022 History of Past illness Narrative* Problem Noted Date Resolved Date Dysuria 07/06/2021 07/08/2021 Obesity, Class I, BMI 30-34.9 01/12/2021 GI bleed 01/12/2021 01/14/2021 Acute blood loss anemia 01/12/2021 01/15/20 LLQ pain 09/05/2017 04/09/2021 Overview: Added automatically from request for surgery [id number] Malignant neoplasm of lower- inner quadrant of right breast of female, estrogen receptor positive 06/03/2017 07/06/2021 Personal history of breast cancer 12/18/2016 04/09/2021 Overview: Added automatically from request for surgery [id number] Permanent atrial fibrillation 12/26/2015 Diverticulitis of large [...] of this encounter (statuses as of 09/19/2021) [facility]04-22-2022 History of Past illness Narrative* Problem Noted Date Resolved Date Dysuria 07/06/2021 07/08/2021 Obesity, Class I, BMI 30-34.9 01/12/2021 GI bleed 01/12/2021 01/14/2021 Acute blood loss anemia 01/12/2021 01/15/20 21 LLQ pain 09/05/2017 04/09/2021 Overview: Added automatically from request for surgery [id number] Malignant neoplasm of lower- inner quadrant of right breast of female, estrogen receptor positive 06/03/2017 07/06/2021 Personal history of breast cancer 12/18/2016 04/09/2021 Overview: Added automatically from request for surgery [id number] Permanent atrial fibrillation 12/26/2015 Diverticulitis of large [...] of this encounter (statuses as of 09/28/2021) [facility]04-22-2022 History of Past illness Narrative* Problem Noted Date Resolved Date Dysuria 07/06/2021 07/08/2021 Obesity, Class I, BMI 30-34.9 01/12/2021 GI bleed 01/12/2021 01/14/2021 Acute blood loss anemia 01/12/2021 01/15/20 21 LLQ pain 09/05/2017 04/09/2021 Overview: Added automatically from request for surgery [id number] Malignant neoplasm of lower- inner quadrant of right breast of female, estrogen receptor positive 06/03/2017 07/06/2021 Personal history of breast cancer 12/18/2016 04/09/2021 Overview: Added automatically from request for surgery [id number] Permanent atrial fibrillation 12/26/2015 Diverticulitis of large [...] of this encounter (statuses as of 10/02/2021) [facility]04-[facility]-2022 History of Past illness Narrative* Problem Noted Date Resolved Date Dysuria 07/06/2021 07/08/2021 Obesity, Class I, BMI 30-34.9 01/12/2021 GI bleed 01/12/2021 01/14/2021 Acute blood loss anemia 01/12/2021 01/15/20 21 LLQ pain 09/05/2017 04/09/2021 Overview: Added automatically from request for surgery [id number] Malignant neoplasm of lower- inner quadrant of right breast of female, estrogen receptor positive 06/03/2017 07/06/2021 Personal history of breast cancer 12/18/2016 04/09/2021 Overview: Added automatically from request for surgery [id number] Permanent atrial fibrillation 12/26/2015 Diverticulitis of large [...] of this encounter (statuses as of 10/11/2021) [facility]04[facility] History of Past illness Narrative* Problem Noted Date Resolved Date Dysuria 07/06/2021 07/08/2021 Obesity, Class I, BMI 30-34.9 01/12/2021 GI bleed 01/12/2021 01/14/2021 Acute blood loss anemia 01/12/2021 01/15/20 21 LLQ pain 09/05/2017 04/09/2021 Overview: Added automatically from request for surgery [id number] Malignant neoplasm of lower- inner quadrant of right breast of female, estrogen receptor positive 06/03/2017 07/06/2021 Personal history of breast cancer 12/18/2016 04/09/2021 Overview: Added automatically from request for surgery [id number] Permanent atrial fibrillation 12/26/2015 Diverticulitis of large [...] of this encounter (statuses as of 10/15/2021) [facility]04-[facility]22 History of Past illness Narrative* Problem Noted Date Resolved Date Dysuria 07/06/2021 07/08/2021 Obesity, Class I, BMI 30-34.9 01/12/2021 GI bleed 01/12/2021 01/14/2021 Acute blood loss anemia 01/12/2021 01/15/20 LLQ pain 09/05/2017 04/09/2021 Overview: Added automatically from request for surgery [id number] Malignant neoplasm of lower- inner quadrant of right breast of female, estrogen receptor positive 06/03/2017 07/06/2021 Personal history of breast cancer 12/18/2016 04/09/2021 Overview: Added automatically from request for surgery [id number] Permanent atrial fibrillation 12/26/2015 Diverticulitis of large [...] of this encounter (statuses as of 10/15/2021) [facility]04-[facility]22 History of Past illness Narrative* Problem Noted Date Resolved Date Dysuria 07/06/2021 07/08/2021 Obesity, Class I, BMI 30-34.9 01/12/2021 GI bleed 01/12/2021 01/14/2021 Acute blood loss anemia 01/12/2021 01/15/20 LLQ pain 09/05/2017 04/09/2021 Overview: Added automatically from request for surgery [id number] Malignant neoplasm of lower- inner quadrant of right breast of female, estrogen receptor positive 06/03/2017 07/06/2021 Personal history of breast cancer 12/18/2016 04/09/2021 Overview: Added automatically from request for surgery [id number] Permanent atrial fibrillation 12/26/2015 Diverticulitis of large [...] of this encounter (statuses as of 10/16/2021) [facility]04-[facility]22 History of Past illness Narrative* Problem Noted Date Resolved Date Dysuria 07/06/2021 07/08/2021 Obesity, Class I, BMI 30-34.9 01/12/2021 GI bleed 01/12/2021 01/14/2021 Acute blood loss anemia 01/12/2021 01/15/20 21 LLQ pain 09/05/2017 04/09/2021 Overview: Added automatically from request for surgery [id number] Malignant neoplasm of lower- inner quadrant of right breast of female, estrogen receptor positive 06/03/2017 07/06/2021 Personal history of breast cancer 12/18/2016 04/09/2021 Overview: Added automatically from request for surgery [id number] Permanent atrial fibrillation 12/26/2015 Diverticulitis of large [...] of this encounter (statuses as of 10/17/2021) [facility]04-[facility]-2022 History of Past illness Narrative* Problem Noted Date Resolved Date Dysuria 07/06/2021 07/08/2021 Obesity, Class I, BMI 30-34.9 01/12/2021 GI bleed 01/12/2021 01/14/2021 Acute blood loss anemia 01/12/2021 01/15/20 21 LLQ pain 09/05/2017 04/09/2021 Overview: Added automatically from request for surgery [id number] Malignant neoplasm of lower- inner quadrant of right breast of female, estrogen receptor positive 06/03/2017 07/06/2021 Personal history of breast cancer 12/18/2016 04/09/2021 Overview: Added automatically from request for surgery [id number] Permanent atrial fibrillation 12/26/2015 Diverticulitis of large [...] of this encounter (statuses as of 10/17/2021) [facility]04[facility] History of Past illness Narrative* Problem Noted Date Resolved Date Dysuria 07/06/2021 07/08/2021 Obesity, Class I, BMI 30-34.9 01/12/2021 GI bleed 01/12/2021 01/14/2021 Acute blood loss anemia 01/12/2021 01/15/20 LLQ pain 09/05/2017 04/09/2021 Overview: Added automatically from request for surgery [id number] Malignant neoplasm of lower- inner quadrant of right breast of female, estrogen receptor positive 06/03/2017 07/06/2021 Personal history of breast cancer 12/18/2016 04/09/2021 Overview: Added automatically from request for surgery [id number] Permanent atrial fibrillation 12/26/2015 Diverticulitis of large [...] of this encounter (statuses as of 10/22/2021) [facility]04-[facility] History of Past illness Narrative* Problem Noted Date Resolved Date Dysuria 07/06/2021 07/08/2021 Obesity, Class I, BMI 30-34.9 01/12/2021 GI bleed 01/12/2021 01/14/2021 Acute blood loss anemia 01/12/2021 01/15/20 21 LLQ pain 09/05/2017 04/09/2021 Overview: Added automatically from request for surgery [id number] Malignant neoplasm of lower- inner quadrant of right breast of female, estrogen receptor positive 06/03/2017 07/06/2021 Personal history of breast cancer 12/18/2016 04/09/2021 Overview: Added automatically from request for surgery [id number] Permanent atrial fibrillation 12/26/2015 Diverticulitis of large [...] of this encounter (statuses as of 11/02/2021) [facility]04[facility] History of Past illness Narrative* Problem Noted Date Resolved Date Dysuria 07/06/2021 07/08/2021 Obesity, Class I, BMI 30-34.9 01/12/2021 GI bleed 01/12/2021 01/14/2021 Acute blood loss anemia 01/12/2021 01/15/20 21 LLQ pain 09/05/2017 04/09/2021 Overview: Added automatically from request for surgery [id number] Malignant neoplasm of lower- inner quadrant of right breast of female, estrogen receptor positive 06/03/2017 07/06/2021 Personal history of breast cancer 12/18/2016 04/09/2021 Overview: Added automatically from request for surgery [id number] Permanent atrial fibrillation 12/26/2015 Diverticulitis of large [...] of this encounter (statuses as of 11/06/2021) [facility]04[facility] History of Past illness Narrative* Problem Noted Date Resolved Date Dysuria 07/06/2021 07/08/2021 Obesity, Class I, BMI 30-34.9 01/12/2021 GI bleed 01/12/2021 01/14/2021 Acute blood loss anemia 01/12/2021 01/15/20 LLQ pain 09/05/2017 04/09/2021 Overview: Added automatically from request for surgery [id number] Malignant neoplasm of lower- inner quadrant of right breast of female, estrogen receptor positive 06/03/2017 07/06/2021 Personal history of breast cancer 12/18/2016 04/09/2021 Overview: Added automatically from request for surgery [id number] Permanent atrial fibrillation 12/26/2015 Diverticulitis of large [...] of this encounter (statuses as of 11/13/2021) [facility]04[facility] History of Past illness Narrative* Problem Noted Date Resolved Date Dysuria 07/06/2021 07/08/2021 Obesity, Class I, BMI 30-34.9 01/12/2021 GI bleed 01/12/2021 01/14/2021 Acute blood loss anemia 01/12/2021 01/15/20 21 LLQ pain 09/05/2017 04/09/2021 Overview: Added automatically from request for surgery [id number] Malignant neoplasm of lower- inner quadrant of right breast of female, estrogen receptor positive 06/03/2017 07/06/2021 Personal history of breast cancer 12/18/2016 04/09/2021 Overview: Added automatically from request for surgery [id number] Permanent atrial fibrillation 12/26/2015 Diverticulitis of large [...] of this encounter (statuses as of 12/11/2021) [facility]04-[facility]22 History of Past illness Narrative* Problem Noted Date Resolved Date Dysuria 07/06/2021 07/08/2021 Obesity, Class I, BMI 30-34.9 01/12/2021 GI bleed 01/12/2021 01/14/2021 Acute blood loss anemia 01/12/2021 01/15/20 21 LLQ pain 09/05/2017 04/09/2021 Overview: Added automatically from request for surgery [id number] Malignant neoplasm of lower- inner quadrant of right breast of female, estrogen receptor positive 06/03/2017 07/06/2021 Personal history of breast cancer 12/18/2016 04/09/2021 Overview: Added automatically from request for surgery [id number] Permanent atrial fibrillation 12/26/2015 Diverticulitis of large [...] of this encounter (statuses as of 12/25/2021) [facility]04-[facility]22 History of Past illness Narrative* Problem Noted Date Resolved Date Dysuria 07/06/2021 07/08/2021 Obesity, Class I, BMI 30-34.9 01/12/2021 GI bleed 01/12/2021 01/14/2021 Acute blood loss anemia 01/12/2021 01/15/20 LLQ pain 09/05/2017 04/09/2021 Overview: Added automatically from request for surgery [id number] Malignant neoplasm of lower- inner quadrant of right breast of female, estrogen receptor positive 06/03/2017 07/06/2021 Personal history of breast cancer 12/18/2016 04/09/2021 Overview: Added automatically from request for surgery [id number] Permanent atrial fibrillation 12/26/2015 Diverticulitis of large [...] of this encounter (statuses as of 01/02/2022) [facility]04[facility] History of Past illness Narrative* Problem Noted Date Resolved Date Dysuria 07/06/2021 07/08/2021 Obesity, Class I, BMI 30-34.9 01/12/2021 GI bleed 01/12/2021 01/14/2021 Acute blood loss anemia 01/12/2021 01/15/20 LLQ pain 09/05/2017 04/09/2021 Overview: Added automatically from request for surgery [id number] Malignant neoplasm of lower- inner quadrant of right breast of female, estrogen receptor positive 06/03/2017 07/06/2021 Personal history of breast cancer 12/18/2016 04/09/2021 Overview: Added automatically from request for surgery [id number] Permanent atrial fibrillation 12/26/2015 Diverticulitis of large [...] of this encounter (statuses as of 01/08/2022) [facility]04[facility] History of Past illness Narrative* Problem Noted Date Resolved Date Dysuria 07/06/2021 07/08/2021 Obesity, Class I, BMI 30-34.9 01/12/2021 GI bleed 01/12/2021 01/14/2021 Acute blood loss anemia 01/12/2021 01/15/20 21 LLQ pain 09/05/2017 04/09/2021 Overview: Added automatically from request for surgery [id number] Malignant neoplasm of lower- inner quadrant of right breast of female, estrogen receptor positive 06/03/2017 07/06/2021 Personal history of breast cancer 12/18/2016 04/09/2021 Overview: Added automatically from request for surgery [id number] Permanent atrial fibrillation 12/26/2015 Diverticulitis of large [...] of this encounter (statuses as of 01/21/2022) [facility]04[facility] History of Past illness Narrative* Problem Noted Date Resolved Date Dysuria 07/06/2021 07/08/2021 Obesity, Class I, BMI 30-34.9 01/12/2021 GI bleed 01/12/2021 01/14/2021 Acute blood loss anemia 01/12/2021 01/15/20 LLQ pain 09/05/2017 04/09/2021 Overview: Added automatically from request for surgery [id number] Malignant neoplasm of lower- inner quadrant of right breast of female, estrogen receptor positive 06/03/2017 07/06/2021 Personal history of breast cancer 12/18/2016 04/09/2021 Overview: Added automatically from request for surgery [id number] Permanent atrial fibrillation 12/26/2015 Diverticulitis of large [...] of this encounter (statuses as of 02/05/2022) [facility]04[facility] History of Past illness Narrative* Problem Noted Date Resolved Date Dysuria 07/06/2021 07/08/2021 Obesity, Class I, BMI 30-34.9 01/12/2021 GI bleed 01/12/2021 01/14/2021 Acute blood loss anemia 01/12/2021 01/15/20 21 LLQ pain 09/05/2017 04/09/2021 Overview: Added automatically from request for surgery [id number] Malignant neoplasm of lower- inner quadrant of right breast of female, estrogen receptor positive 06/03/2017 07/06/2021 Personal history of breast cancer 12/18/2016 04/09/2021 Overview: Added automatically from request for surgery [id number] Permanent atrial fibrillation 12/26/2015 Diverticulitis of large [...] Other diseases of pharynx, not elsewhere classif ied(523.29) 04/14/2013 Unspecified hemorrhoids without mention of compl [...] of this encounter (statuses as of 03/09/2022) [facility]04[facility] History of Past illness Narrative* Problem Noted Date Resolved Date Dysuria 07/06/2021 07/08/2021 Obesity, Class I, BMI 30-34.9 01/12/2021 GI bleed 01/12/2021 01/14/2021 Acute blood loss anemia 01/12/2021 01/15/20 21 LLQ pain 09/05/2017 04/09/2021 Overview: Added automatically from request for surgery [id number] Malignant neoplasm of lower- inner quadrant of right breast of female, estrogen receptor positive 06/03/2017 07/06/2021 Personal history of breast cancer 12/18/2016 04/09/2021 Overview: Added automatically from request for surgery [id number] Permanent atrial fibrillation 12/26/2015 Diverticulitis of large [...] of this encounter (statuses as of 03/17/2022) [facility] History of Past illness Narrative* Problem Noted Date Resolved Date Dysuria 07/06/2021 07/08/2021 Obesity, Class I, BMI 30-34.9 01/12/2021 GI bleed 01/12/2021 01/14/2021 Acute blood loss anemia 01/12/2021 01/15/20 LLQ pain 09/05/2017 04/09/2021 Overview: Added automatically from request for surgery [id number] Malignant neoplasm of lower- inner quadrant of right breast of female, estrogen receptor positive 06/03/2017 07/06/2021 Personal history of breast cancer 12/18/2016 04/09/2021 Overview: Added automatically from request for surgery [id number] Permanent atrial fibrillation 12/26/2015 Diverticulitis of large [...] of this encounter (statuses as of 03/20/2022) [facility] History of Past illness Narrative* Problem Noted Date Resolved Date Dysuria 07/06/2021 07/08/2021 Obesity, Class I, BMI 30-34.9 01/12/2021 GI bleed 01/12/2021 01/14/2021 Acute blood loss anemia 01/12/2021 01/15/20 21 LLQ pain 09/05/2017 04/09/2021 Overview: Added automatically from request for surgery [id number] Malignant neoplasm of lower- inner quadrant of right breast of female, estrogen receptor positive 06/03/2017 07/06/2021 Personal history of breast cancer 12/18/2016 04/09/2021 Overview: Added automatically from request for surgery [id number] Permanent atrial fibrillation 12/26/2015 Diverticulitis of large [...] of this encounter (statuses as of 03/23/2022) [facility] History of Past illness Narrative* Problem Noted Date Resolved Date Dysuria 07/06/2021 07/08/2021 Obesity, Class I, BMI 30-34.9 01/12/2021 GI bleed 01/12/2021 01/14/2021 Acute blood loss anemia 01/12/2021 01/15/20 21 LLQ pain 09/05/2017 04/09/2021 Overview: Added automatically from request for surgery [id number] Malignant neoplasm of lower- inner quadrant of right breast of female, estrogen receptor positive 06/03/2017 07/06/2021 Personal history of breast cancer 12/18/2016 04/09/2021 Overview: Added automatically from request for surgery [id number] Permanent atrial fibrillation 12/26/2015 Diverticulitis of large [...] of this encounter (statuses as of 03/23/2022) [facility] History of Past illness Narrative* Problem Noted Date Resolved Date Dysuria 07/06/2021 07/08/2021 Obesity, Class I, BMI 30-34.9 01/12/2021 GI bleed 01/12/2021 01/14/2021 Acute blood loss anemia 01/12/2021 01/15/20 21 LLQ pain 09/05/2017 04/09/2021 Overview: Added automatically from request for surgery [id number] Malignant neoplasm of lower- inner quadrant of right breast of female, estrogen receptor positive 06/03/2017 07/06/2021 Personal history of breast cancer 12/18/2016 04/09/2021 Overview: Added automatically from request for surgery [id number] Permanent atrial fibrillation 12/26/2015 Diverticulitis of large [...] of this encounter (statuses as of 03/25/2022) [facility] History of Past illness Narrative* Problem Noted Date Resolved Date Dysuria 07/06/2021 07/08/2021 Obesity, Class I, BMI 30-34.9 01/12/2021 GI bleed 01/12/2021 01/14/2021 Acute blood loss anemia 01/12/2021 01/15/20 21 LLQ pain 09/05/2017 04/09/2021 Overview: Added automatically from request for surgery [id number] Malignant neoplasm of lower- inner quadrant of right breast of female, estrogen receptor positive 06/03/2017 07/06/2021 Personal history of breast cancer 12/18/2016 04/09/2021 Overview: Added automatically from request for surgery [id number] Permanent atrial fibrillation 12/26/2015 Diverticulitis of large [...] of this encounter (statuses as of 04/08/2022) [facility] History of Past illness Narrative* Problem Noted Date Resolved Date Dysuria 07/06/2021 07/08/2021 Obesity, Class I, BMI 30-34.9 01/12/2021 GI bleed 01/12/2021 01/14/2021 Acute blood loss anemia 01/12/2021 01/15/20 21 LLQ pain 09/05/2017 04/09/2021 Overview: Added automatically from request for surgery [id number] Malignant neoplasm of lower- inner quadrant of right breast of female, estrogen receptor positive 06/03/2017 07/06/2021 Personal history of breast cancer 12/18/2016 04/09/2021 Overview: Added automatically from request for surgery [id number] Permanent atrial fibrillation 12/26/2015 Diverticulitis of large [...] of this encounter (statuses as of 04/10/2022) [facility] History of Past illness Narrative* Problem Noted Date Resolved Date Dysuria 07/06/2021 07/08/2021 Obesity, Class I, BMI 30-34.9 01/12/2021 GI bleed 01/12/2021 01/14/2021 Acute blood loss anemia 01/12/2021 01/15/20 LLQ pain 09/05/2017 04/09/2021 Overview: Added automatically from request for surgery [id number] Malignant neoplasm of lower- inner quadrant of right breast of female, estrogen receptor positive 06/03/2017 07/06/2021 Personal history of breast cancer 12/18/2016 04/09/2021 Overview: Added automatically from request for surgery [id number] Permanent atrial fibrillation 12/26/2015 Diverticulitis of large [...] of this encounter (statuses as of 04/12/2022) [facility] History of Past illness Narrative* Problem Noted Date Resolved Date Dysuria 07/06/2021 07/08/2021 Obesity, Class I, BMI 30-34.9 01/12/2021 GI bleed 01/12/2021 01/14/2021 Acute blood loss anemia 01/12/2021 01/15/20 LLQ pain 09/05/2017 04/09/2021 Overview: Added automatically from request for surgery [id number] Malignant neoplasm of lower- inner quadrant of right breast of female, estrogen receptor positive 06/03/2017 07/06/2021 Personal history of breast cancer 12/18/2016 04/09/2021 Overview: Added automatically from request for surgery [id number] Permanent atrial fibrillation 12/26/2015 Diverticulitis of large [...] of this encounter (statuses as of 04/15/2022) [facility] History of Past illness Narrative* Problem Noted Date Resolved Date Dysuria 07/06/2021 07/08/2021 Obesity, Class I, BMI 30-34.9 01/12/2021 GI bleed 01/12/2021 01/14/2021 Acute blood loss anemia 01/12/2021 01/15/20 21 LLQ pain 09/05/2017 04/09/2021 Overview: Added automatically from request for surgery [id number] Malignant neoplasm of lower- inner quadrant of right breast of female, estrogen receptor positive 06/03/2017 07/06/2021 Personal history of breast cancer 12/18/2016 04/09/2021 Overview: Added automatically from request for surgery [id number] Permanent atrial fibrillation 12/26/2015 Diverticulitis of large [...] of this encounter (statuses as of 04/16/2022) [facility] History of Past illness Narrative* Problem Noted Date Resolved Date Dysuria 07/06/2021 07/08/2021 Obesity, Class I, BMI 30-34.9 01/12/2021 GI bleed 01/12/2021 01/14/2021 Acute blood loss anemia 01/12/2021 01/15/20 21 LLQ pain 09/05/2017 04/09/2021 Overview: Added automatically from request for surgery [id number] Malignant neoplasm of lower- inner quadrant of right breast of female, estrogen receptor positive 06/03/2017 07/06/2021 Personal history of breast cancer 12/18/2016 04/09/2021 Overview: Added automatically from request for surgery [id number] Permanent atrial fibrillation 12/26/2015 Diverticulitis of large [...] of this encounter (statuses as of 04/16/2022) [facility] History of Past illness Narrative* Problem Noted Date Resolved Date Dysuria 07/06/2021 07/08/2021 Obesity, Class I, BMI 30-34.9 01/12/2021 GI bleed 01/12/2021 01/14/2021 Acute blood loss anemia 01/12/2021 01/15/20 LLQ pain 09/05/2017 04/09/2021 Overview: Added automatically from request for surgery [id number] Malignant neoplasm of lower- inner quadrant of right breast of female, estrogen receptor positive 06/03/2017 07/06/2021 Personal history of breast cancer 12/18/2016 04/09/2021 Overview: Added automatically from request for surgery [id number] Permanent atrial fibrillation 12/26/2015 Diverticulitis of large [...] of this encounter (statuses as of 04/17/2022) [facility] History of Past illness Narrative* Problem Noted Date Resolved Date Dysuria 07/06/2021 07/08/2021 Obesity, Class I, BMI 30-34.9 01/12/2021 GI bleed 01/12/2021 01/14/2021 Acute blood loss anemia 01/12/2021 01/15/20 21 LLQ pain 09/05/2017 04/09/2021 Overview: Added automatically from request for surgery [id number] Malignant neoplasm of lower- inner quadrant of right breast of female, estrogen receptor positive 06/03/2017 07/06/2021 Personal history of breast cancer 12/18/2016 04/09/2021 Overview: Added automatically from request for surgery [id number] Permanent atrial fibrillation 12/26/2015 Diverticulitis of large [...] of this encounter (statuses as of 04/22/2022) [facility] History of Past illness Narrative* Problem Noted Date Resolved Date Dysuria 07/06/2021 07/08/2021 Obesity, Class I, BMI 30-34.9 01/12/2021 GI bleed 01/12/2021 01/14/2021 Acute blood loss anemia 01/12/2021 01/15/20 21 LLQ pain 09/05/2017 04/09/2021 Overview: Added automatically from request for surgery [id number] Malignant neoplasm of lower- inner quadrant of right breast of female, estrogen receptor positive 06/03/2017 07/06/2021 Personal history of breast cancer 12/18/2016 04/09/2021 Overview: Added automatically from request for surgery [id number] Permanent atrial fibrillation 12/26/2015 Diverticulitis of large [...] of this encounter (statuses as of 05/30/2022) [facility]04-22-2022 History of Past illness Narrative* Problem Noted Date Resolved Date Dysuria 07/06/2021 07/08/2021 Obesity, Class I, BMI 30-34.9 01/12/2021 GI bleed 01/12/2021 01/14/2021 Acute blood loss anemia 01/12/2021 01/15/20 LLQ pain 09/05/2017 04/09/2021 Overview: Added automatically from request for surgery [id number] Malignant neoplasm of lower- inner quadrant of right breast of female, estrogen receptor positive 06/03/2017 07/06/2021 Personal history of breast cancer 12/18/2016 04/09/2021 Overview: Added automatically from request for surgery [id number] Permanent atrial fibrillation 12/26/2015 Diverticulitis of large [...] of this encounter (statuses as of 06/07/2022) [facility]04-22-2022 History of Past illness Narrative* Problem Noted Date Resolved Date Dysuria 07/06/2021 07/08/2021 Obesity, Class I, BMI 30-34.9 01/12/2021 GI bleed 01/12/2021 01/14/2021 Acute blood loss anemia 01/12/2021 01/15/20 21 LLQ pain 09/05/2017 04/09/2021 Overview: Added automatically from request for surgery [id number] Malignant neoplasm of lower- inner quadrant of right breast of female, estrogen receptor positive 06/03/2017 07/06/2021 Personal history of breast cancer 12/18/2016 04/09/2021 Overview: Added automatically from request for surgery [id number] Permanent atrial fibrillation 12/26/2015 Diverticulitis of large [...] of this encounter (statuses as of 06/11/2022) [facility]04-22-2022 History of Past illness Narrative* Problem Noted Date Resolved Date Dysuria 07/06/2021 07/08/2021 Obesity, Class I, BMI 30-34.9 01/12/2021 GI bleed 01/12/2021 01/14/2021 Acute blood loss anemia 01/12/2021 01/15/20 21 LLQ pain 09/05/2017 04/09/2021 Overview: Added automatically from request for surgery [id number] Malignant neoplasm of lower- inner quadrant of right breast of female, estrogen receptor positive 06/03/2017 07/06/2021 Personal history of breast cancer 12/18/2016 04/09/2021 Overview: Added automatically from request for surgery [id number] Permanent atrial fibrillation 12/26/2015 Diverticulitis of large [...] of this encounter (statuses as of 06/18/2022) [facility]04-22-2022 History of Past illness Narrative* Problem Noted Date Resolved Date Dysuria 07/06/2021 07/08/2021 Obesity, Class I, BMI 30-34.9 01/12/2021 GI bleed 01/12/2021 01/14/2021 Acute blood loss anemia 01/12/2021 01/15/20 21 LLQ pain 09/05/2017 04/09/2021 Overview: Added automatically from request for surgery [id number] Malignant neoplasm of lower- inner quadrant of right breast of female, estrogen receptor positive 06/03/2017 07/06/2021 Personal history of breast cancer 12/18/2016 04/09/2021 Overview: Added automatically from request for surgery [id number] Permanent atrial fibrillation 12/26/2015 Diverticulitis of large [...] of this encounter (statuses as of 08/29/2022) [facility]04-[facility]-20[facility] History of Past illness Narrative* Problem Noted Date Resolved Date Dysuria 07/06/2021 07/08/2021 Obesity, Class I, BMI 30-34.9 01/12/2021 GI bleed 01/12/2021 01/14/2021 Acute blood loss anemia 01/12/2021 01/15/20 LLQ pain 09/05/2017 04/09/2021 Overview: Added automatically from request for surgery [id number] Malignant neoplasm of lower- inner quadrant of right breast of female, estrogen receptor positive 06/03/2017 07/06/2021 Personal history of breast cancer 12/18/2016 04/09/2021 Overview: Added automatically from request for surgery [id number] Permanent atrial fibrillation 12/26/2015 Diverticulitis of large [...] of this encounter (statuses as of 09/05/2022) [facility]04-22-2022 History of Past illness Narrative* Problem Noted Date Resolved Date Dysuria 07/06/2021 07/08/2021 Obesity, Class I, BMI 30-34.9 01/12/2021 GI bleed 01/12/2021 01/14/2021 Acute blood loss anemia 01/12/2021 01/15/20 21 LLQ pain 09/05/2017 04/09/2021 Overview: Added automatically from request for surgery [id number] Malignant neoplasm of lower- inner quadrant of right breast of female, estrogen receptor positive 06/03/2017 07/06/2021 Personal history of breast cancer 12/18/2016 04/09/2021 Overview: Added automatically from request for surgery [id number] Permanent atrial fibrillation 12/26/2015 Diverticulitis of large [...] of this encounter (statuses as of 09/20/2022) [facility]04-[facility]-2022 History of Past illness Narrative* Problem Noted Date Diagnosed Date Resolved Date Dysuria 07/06/2021 07/08/2021 Obesity, Class I, BMI 30-34.9 01/12/2021 04/09/2021 GI bleed 01/12/2021 01/14/2021 Acute blood loss anemia 01/12/202112/17 LLQ pain 09/05/2017 04/09/2021 Overview: Added automatically from request for surgery [id number] Malignant neoplasm of lower- inner quadrant of right breast of female, estrogen receptor positive 06/03/2017 07/06/2021 Personal history of breast cancer 12/18/2016 04/09/2021 Overview: Added automatically from request for surgery [id number] Permanent atrial fibrillation 12/26/2015 07/01/2018 Diverticulitis of [...] of this encounter (statuses as of 09/25/2022) [facility]04[facility] History of Past illness Narrative* Problem Noted Date Diagnosed Date Resolved Date Dysuria 07/06/2021 07/08/2021 Obesity, Class I, BMI 30-34.9 01/12/2021 04/09/2021 GI bleed 01/12/2021 01/14/2021 Acute blood loss anemia 01/12/2021 10/3 03/2020 LLQ pain 09/05/2017 04/09/2021 Overview: Added automatically from request for surgery [id number] Malignant neoplasm of lower- inner quadrant of right breast of female, estrogen receptor positive 06/03/2017 07/06/2021 Personal history of breast cancer 12/18/2016 04/09/2021 Overview: Added automatically from request for surgery [id number] Permanent atrial fibrillation 12/26/2015 07/01/2018 Diverticulitis of [...] of this encounter (statuses as of 10/23/2022) [facility]04[facility] History of Past illness Narrative* Problem Noted Date Diagnosed Date Resolved Date Dysuria 07/06/2021 07/08/2021 Obesity, Class I, BMI 30-34.9 01/12/2021 04/09/2021 GI bleed 01/12/2021 01/14/2021 Acute blood loss anemia 01/12/202112/17 LLQ pain 09/05/2017 04/09/2021 Overview: Added automatically from request for surgery [id number] Malignant neoplasm of lower- inner quadrant of right breast of female, estrogen receptor positive 06/03/2017 07/06/2021 Personal history of breast cancer 12/18/2016 04/09/2021 Overview: Added automatically from request for surgery [id number] Permanent atrial fibrillation 12/26/2015 07/01/2018 Diverticulitis of [...] of this encounter (statuses as of 11/15/2022) [facility]04-22-2022 History of Past illness Narrative* Problem Noted Date Diagnosed Date Resolved Date Dysuria 07/06/2021 07/08/2021 Obesity, Class I, BMI 30-34.9 01/12/2021 04/09/2021 GI bleed 01/12/2021 01/14/2021 Acute blood loss anemia 01/12/202112/17 LLQ pain 09/05/2017 04/09/2021 Overview: Added automatically from request for surgery [id number] Malignant neoplasm of lower- inner quadrant of right breast of female, estrogen receptor positive 06/03/2017 07/06/2021 Personal history of breast cancer 12/18/2016 04/09/2021 Overview: Added automatically from request for surgery [id number] Permanent atrial fibrillation 12/26/2015 07/01/2018 Diverticulitis of [...] of this encounter (statuses as of 11/26/2022) [facility]04[facility] History of Past illness Narrative* Problem Noted Date Diagnosed Date Resolved Date Dysuria 07/06/2021 07/08/2021 Obesity, Class I, BMI 30-34.9 01/12/2021 04/09/2021 GI bleed 01/12/2021 01/14/2021 Acute blood loss anemia 01/12/2021 1003/2020 LLQ pain 09/05/2017 04/09/2021 Overview: Added automatically from request for surgery [id number] Malignant neoplasm of lower- inner quadrant of right breast of female, estrogen receptor positive 06/03/2017 07/06/2021 Personal history of breast cancer 12/18/2016 04/09/2021 Overview: Added automatically from request for surgery [id number] Permanent atrial fibrillation 12/26/2015 07/01/2018 Diverticulitis of [...] of this encounter (statuses as of 11/27/2022) [facility]04[facility] History of Past illness Narrative* Problem Noted Date Diagnosed Date Resolved Date Dysuria 07/06/2021 07/08/2021 Obesity, Class I, BMI 30-34.9 01/12/2021 04/09/2021 GI bleed 01/12/2021 01/14/2021 Acute blood loss anemia 01/12/202112/17 LLQ pain 09/05/2017 04/09/2021 Overview: Added automatically from request for surgery [id number] Malignant neoplasm of lower- inner quadrant of right breast of female, estrogen receptor positive 06/03/2017 07/06/2021 Personal history of breast cancer 12/18/2016 04/09/2021 Overview: Added automatically from request for surgery [id number] Permanent atrial fibrillation 12/26/2015 07/01/2018 Diverticulitis of [...] of this encounter (statuses as of 12/14/2022) [facility]04[facility] History of Past illness Narrative* Problem Noted Date Diagnosed Date Resolved Date Dysuria 07/06/2021 07/08/2021 Obesity, Class I, BMI 30-34.9 01/12/2021 04/09/2021 GI bleed 01/12/2021 01/14/2021 Acute blood loss anemia 01/12/202112/17 LLQ pain 09/05/2017 04/09/2021 Overview: Added automatically from request for surgery [id number] Malignant neoplasm of lower- inner quadrant of right breast of female, estrogen receptor positive (HCC) 06/03/2017 07/06/2021 Personal history of breast cancer 12/18/2016 04/09/2021 Overview: Added automatically from request for surgery [id number] Permanent atrial fibrillation 12/26/2015 07/01/2018 Diverticulitis of [...] of this encounter (statuses as of 12/18/2022) [facility]04-22-2022 History of Past illness Narrative* Problem Noted Date Diagnosed Date Resolved Date Dysuria 07/06/2021 07/08/2021 Obesity, Class I, BMI 30-34.9 01/12/2021 04/09/2021 GI bleed 01/12/2021 01/14/2021 Acute blood loss anemia 01/12/202112/17 LLQ pain 09/05/2017 04/09/2021 Overview: Added automatically from request for surgery [id number] Malignant neoplasm of lower- inner quadrant of right breast of female, estrogen receptor positive (HCC) 06/03/2017 07/06/2021 Personal history of breast cancer 12/18/2016 04/09/2021 Overview: Added automatically from request for surgery [id number] Permanent atrial fibrillation 12/26/2015 07/01/2018 Diverticulitis of [...] of this encounter (statuses as of 12/21/2022) [facility]04[facility] History of Past illness Narrative* Problem Noted Date Diagnosed Date Resolved Date Dysuria 07/06/2021 07/08/2021 Obesity, Class I, BMI 30-34.9 01/12/2021 04/09/2021 GI bleed 01/12/2021 01/14/2021 Acute blood loss anemia 01/12/202112/17 LLQ pain 09/05/2017 04/09/2021 Overview: Added automatically from request for surgery [id number] Malignant neoplasm of lower- inner quadrant of right breast of female, estrogen receptor positive (HCC) 06/03/2017 07/06/2021 Personal history of breast cancer 12/18/2016 04/09/2021 Overview: Added automatically from request for surgery [id number] Permanent atrial fibrillation 12/26/2015 07/01/2018 Diverticulitis of [...] of this encounter (statuses as of 01/14/2023) [facility]04[facility] History of Past illness Narrative* Problem Noted Date Diagnosed Date Resolved Date Dysuria 07/06/2021 07/08/2021 Obesity, Class I, BMI 30-34.9 01/12/2021 04/09/2021 GI bleed 01/12/2021 01/14/2021 Acute blood loss anemia 01/12/202112/17 LLQ pain 09/05/2017 04/09/2021 Overview: Added automatically from request for surgery [id number] Malignant neoplasm of lower- inner quadrant of right breast of female, estrogen receptor positive 06/03/2017 07/06/2021 Personal history of breast cancer 12/18/2016 04/09/2021 Overview: Added automatically from request for surgery [id number] Permanent atrial fibrillation 12/26/2015 07/01/2018 Diverticulitis of [...] of this encounter (statuses as of 01/19/2023) [facility]04[facility] History of Past illness Narrative* Problem Noted Date Diagnosed Date Resolved Date Dysuria 07/06/2021 07/08/2021 Obesity, Class I, BMI 30-34.9 01/12/2021 04/09/2021 GI bleed 01/12/2021 01/14/2021 Acute blood loss anemia 01/12/202112/17 LLQ pain 09/05/2017 04/09/2021 Overview: Added automatically from request for surgery [id number] Malignant neoplasm of lower- inner quadrant of right breast of female, estrogen receptor positive 06/03/2017 07/06/2021 Personal history of breast cancer 12/18/2016 04/09/2021 Overview: Added automatically from request for surgery [id number] Permanent atrial fibrillation 12/26/2015 07/01/2018 Diverticulitis of [...] of this encounter (statuses as of 01/19/2023) [facility]04[facility]22-2022 History of Past illness Narrative* Problem Noted Date Diagnosed Date Resolved Date Dysuria 07/06/2021 07/08/2021 Obesity, Class I, BMI 30-34.9 01/12/2021 04/09/2021 GI bleed 01/12/2021 01/14/2021 Acute blood loss anemia 01/12/202112/17 LLQ pain 09/05/2017 04/09/2021 Overview: Added automatically from request for surgery [id number] Malignant neoplasm of lower- inner quadrant of right breast of female, estrogen receptor positive (HCC) 06/03/2017 07/06/2021 Personal history of breast cancer 12/18/2016 04/09/2021 Overview: Added automatically from request for surgery [id number] Permanent atrial fibrillation 12/26/2015 07/01/2018 Diverticulitis of [...] of this encounter (statuses as of 02/12/2023) [facility] History of Past illness Narrative* Problem Noted Date Diagnosed Date Resolved Date Dysuria 07/06/2021 07/08/2021 Obesity, Class I, BMI 30-34.9 01/12/2021 04/09/2021 GI bleed 01/12/2021 01/14/2021 Acute blood loss anemia 01/12/202112/17 LLQ pain 09/05/2017 04/09/2021 Overview: Added automatically from request for surgery [id number] Malignant neoplasm of lower- inner quadrant of right breast of female, estrogen receptor positive (HCC) 06/03/2017 07/06/2021 Personal history of breast cancer 12/18/2016 04/09/2021 Overview: Added automatically from request for surgery [id number] Permanent atrial fibrillation 12/26/2015 07/01/2018 Diverticulitis of [...] of this encounter (statuses as of 04/25/2023) [facility] History of Past illness Narrative* Problem Noted Date Diagnosed Date Resolved Date Dysuria 07/06/2021 07/08/2021 Obesity, Class I, BMI 30-34.9 01/12/2021 04/09/2021 GI bleed 01/12/2021 01/14/2021 Acute blood loss anemia 01/12/202112/17 LLQ pain 09/05/2017 04/09/2021 Overview: Added automatically from request for surgery [id number] Malignant neoplasm of lower- inner quadrant of right breast of female, estrogen receptor positive (HCC) 06/03/2017 07/06/2021 Personal history of breast cancer 12/18/2016 04/09/2021 Overview: Added automatically from request for surgery [id number] Permanent atrial fibrillation 12/26/2015 07/01/2018 Diverticulitis of [...] of this encounter (statuses as of 04/30/2023) 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 History of Past illness Narrative* Problem Noted Date Diagnosed Date Resolved Date Dysuria 07/06/2021 07/08/2021 Obesity, Class I, BMI 30-34.9 01/12/2021 04/09/2021 GI bleed 01/12/2021 01/14/2021 Acute blood loss anemia 01/12/2021 10/03/2020 LLQ pain 09/05/2017 04/09/2021 Overview: Added automatically from request for surgery [id number] Malignant neoplasm of lower- inner quadrant of right breast of female, estrogen receptor positive 06/03/2017 07/06/2021 Personal history of breast cancer 12/18/2016 04/09/2021 Overview: Added automatically from request for surgery [id number] Permanent atrial fibrillation 12/26/2015 07/01/2018 Diverticulitis of [...] of this encounter (statuses as of 06/07/2023) [facility] History of Past illness Narrative* Problem Noted Date Diagnosed Date Resolved Date Dysuria 07/06/2021 07/08/2021 Obesity, Class I, BMI 30-34.9 01/12/2021 04/09/2021 GI bleed 01/12/2021 01/14/2021 Acute blood loss anemia 01/12/202112/17 LLQ pain 09/05/2017 04/09/2021 Overview: Added automatically from request for surgery [id number] Malignant neoplasm of lower- inner quadrant of right breast of female, estrogen receptor positive 06/03/2017 07/06/2021 Personal history of breast cancer 12/18/2016 04/09/2021 Overview: Added automatically from request for surgery [id number] Permanent atrial fibrillation 12/26/2015 07/01/2018 Diverticulitis of [...] of this encounter (statuses as of 06/10/2023) [facility] History of Past illness Narrative* Problem Noted Date Diagnosed Date Resolved Date Dysuria 07/06/2021 07/08/2021 Obesity, Class I, BMI 30-34.9 01/12/2021 04/09/2021 GI bleed 01/12/2021 01/14/2021 Acute blood loss anemia 01/12/202112/17 LLQ pain 09/05/2017 04/09/2021 Overview: Added automatically from request for surgery [id number] Malignant neoplasm of lower- inner quadrant of right breast of female, estrogen receptor positive 06/03/2017 07/06/2021 Personal history of breast cancer 12/18/2016 04/09/2021 Overview: Added automatically from request for surgery [id number] Permanent atrial fibrillation 12/26/2015 07/01/2018 Diverticulitis of [...] of this encounter (statuses as of 06/17/2023) [facility] History of Past illness Narrative* Problem Noted Date Diagnosed Date Resolved Date Dysuria 07/06/2021 07/08/2021 Obesity, Class I, BMI 30-34.9 01/12/2021 04/09/2021 GI bleed 01/12/2021 01/14/2021 Acute blood loss anemia 01/12/2021 10/03/2020 LLQ pain 09/05/2017 04/09/2021 Overview: Added automatically from request for surgery [id number] Malignant neoplasm of lower- inner quadrant of right breast of female, estrogen receptor positive 06/03/2017 07/06/2021 Personal history of breast cancer 12/18/2016 04/09/2021 Overview: Added automatically from request for surgery [id number] Permanent atrial fibrillation 12/26/2015 07/01/2018 Diverticulitis of [...] of this encounter (statuses as of 06/18/2023) [facility] History of Past illness Narrative* Problem Noted Date Diagnosed Date Resolved Date Dysuria 07/06/2021 07/08/2021 Obesity, Class I, BMI 30-34.9 01/12/2021 04/09/2021 GI bleed 01/12/2021 01/14/2021 Acute blood loss anemia 01/12/202112/17 LLQ pain 09/05/2017 04/09/2021 Overview: Added automatically from request for surgery [id number] Malignant neoplasm of lower- inner quadrant of right breast of female, estrogen receptor positive 06/03/2017 07/06/2021 Personal history of breast cancer 12/18/2016 04/09/2021 Overview: Added automatically from request for surgery [id number] Permanent atrial fibrillation 12/26/2015 07/01/2018 Diverticulitis of [...] of this encounter (statuses as of 06/19/2023) [facility] History of Past illness Narrative* Problem Noted Date Diagnosed Date Resolved Date Dysuria 07/06/2021 07/08/2021 Obesity, Class I, BMI 30-34.9 01/12/2021 04/09/2021 GI bleed 01/12/2021 01/14/2021 Acute blood loss anemia 01/12/2021 1003/2020 LLQ pain 09/05/2017 04/09/2021 Overview: Added automatically from request for surgery [id number] Malignant neoplasm of lower- inner quadrant of right breast of female, estrogen receptor positive 06/03/2017 07/06/2021 Personal history of breast cancer 12/18/2016 04/09/2021 Overview: Added automatically from request for surgery [id number] Permanent atrial fibrillation 12/26/2015 07/01/2018 Diverticulitis of [...] of this encounter (statuses as of 07/01/2023) [facility] History of Past illness Narrative* Problem Noted Date Diagnosed Date Resolved Date Dysuria 07/06/2021 07/08/2021 Obesity, Class I, BMI 30-34.9 01/12/2021 04/09/2021 GI bleed 01/12/2021 01/14/2021 Acute blood loss anemia 01/12/202112/17 LLQ pain 09/05/2017 04/09/2021 Overview: Added automatically from request for surgery [id number] Malignant neoplasm of lower- inner quadrant of right breast of female, estrogen receptor positive 06/03/2017 07/06/2021 Personal history of breast cancer 12/18/2016 04/09/2021 Overview: Added automatically from request for surgery [id number] Permanent atrial fibrillation 12/26/2015 07/01/2018 Diverticulitis of [...] of this encounter (statuses as of 07/02/2023) [facility] History of Past illness Narrative* Problem Noted Date Diagnosed Date Resolved Date Dysuria 07/06/2021 07/08/2021 Obesity, Class I, BMI 30-34.9 01/12/2021 04/09/2021 GI bleed 01/12/2021 01/14/2021 Acute blood loss anemia 01/12/202112/17 LLQ pain 09/05/2017 04/09/2021 Overview: Added automatically from request for surgery [id number] Malignant neoplasm of lower- inner quadrant of right breast of female, estrogen receptor positive 06/03/2017 07/06/2021 Personal history of breast cancer 12/18/2016 04/09/2021 Overview: Added automatically from request for surgery [id number] Permanent atrial fibrillation 12/26/2015 07/01/2018 Diverticulitis of [...] LEG 11/25/2005 02/17/2012 INTRADERMAL NEVI (MELANOCYTI C)/// DAIRNEL SKIN TRUNK 11/25/2005 02/17/2012 SKIN TAG PAPILLOMAS///SKIN [...] of this encounter (statuses as of 07/04/2023) [facility]04-22-2022 Miscellaneous Notes* Telephone Encounter - Coreen Concepcion MD - 07/06/2021 12:10 PM EDT Had spoken to Dr. Turk regarding her plan- ERCP with prophylactic sphincterotomy and referral [facility]olecyst[facility]. Unfortunately she will likely become obstructed regardless of ERCP because of this 3.3 cm stone. Called patient's daughter (patient did not answer), patient is currently in Emergency department with worsening pain, fevers. Will likely be admitted, high concern for biliary obstruction. [facility] History of Present illness Narrative* Johnny Turk [...] had black tarry stools and presented to [facility] for post polypectomy bleed. At the [...] 99 74 - 99 mg/dL Final The [place] [employer] (ADA) provides guidance for [...] Standards of Medical Care in Diabetes 2016, [place] [employer]. Diabetes Care. 2016.39(Suppl 1). [...] addended to a previously final verified report. [place]% 07/05/2021 14.0 % Final This is an addended report. These results have been addended to a previously final verified report. Abs [place] 07/05/2021 1.22 (A) <0.87 k/uL Final This [...] Referred by noted on Friday to her textiles printer. She question whether the patient truly had [...] mouth once daily. Taking 1000 glucosamine/msm/chondroitin A (LBXVVZQCUDP-LRWBPD-UBA ORAL) Take 1 capsule by mouth once [...] Age of Onset other ( age 60 MS) Mother hypertension and TB other (pancreatic cancer) [...] (98.6 F), height 167.6 cm (5' 6), yoijcj24.8 kg (176 lb), SpO2 100 %. Body [...] [facility] in the [facility] system and compare this to the CAT [...] needed. Johnny Turk MD [facility] Miscellaneous Notes* Telephone Encounter - Bernie Aguilar LPN - 07/05/2021 4:38 PM EDT Eloisa notified, verbalized understanding. Eloisa states that patient will be admitted into [facility] tomorrow. Just an FYI * Telephone Encounter - Ambar Negrete APRN.FE - 07/05/2021 3:35 PM EDT PCP Galina [...] [facility]. [facility] [...] term for pain? Pt uses [facility] in [place]. Please call daughter Eloisa to notify her. Eloisa also asking for message to go to Dr Turk since pt was seen by him today. Aliyah Oliva LPN documented in this encounterMer[facility]04-19-2022 History of Present illness Narrative* Alma Older, DE ICER ELEMENT WINDER.CONSULTING ACTUARY - 07/03/2021 12:15 PM EDT CC: Patient [...] mouth once daily. Taking 1000 glucosamine/msm/chondroitin A (WAAWFDOKBUG-RBYDFL-RSU ORAL) Take 1 capsule by mouth once [...] Age of Onset other ( age 60 MS) Mother hypertension and TB other (pancreatic cancer) [...] abdominal tenderness DATA REVIEWED: Outside chart from [facility] ER reviewed. ASSESSMENT/PLAN: 1. Dysuria - ICD9: 788.1, ICD10: R30.0 (primary diagnosis) Chronic. Urine cultures negative for UTI and no improvement with antibiotics. Differentials includeyeast infection, atrophic vaginitis, interstitial cystitis Start Diflucan for possible yeast infection Follow-up with COMMERCIAL LOAN OFFICER as scheduled next week and discuss further [...] plan. Alma Ta APRN.CNP documented in this encounterMercy Health St. [facility]04-19-2022 Miscellaneous Notes* Telephone Encounter - Madonna Dickson LPN - 07/03/2021 11:01 AM EDT Called [facility] medical records to fax ER visit from 07/02/21 . * Telephone Encounter - Madonna Dickson LPN - 07/03/2021 8:59 AM EDT Patient called wants to talk to Dr Turk, was in [facility] ER last night 07/02/21, [place] wanted to do surgery on gallbladder, patient declined, states wants to f/up with Dr Turk before proceeding. Please advise. [phone] documented in [address] encounterMer[address] [facility]. [facility]04-08-2022 Miscellaneous Notes* Telephone Encounter - Corinna Arenas [facility] - 06/22/2021 10:16 AM EDT [facility] Amb[facility]acy Anticoagulation Clinic Anticoagulation Episode Summary Anticoagulation Care Providers Provider Role Specialty Phone number Galina Iraheta MD [facility] Internal Medicine [phone] Christian Landrum is a 85 year old [...] [Lisinopril] Indication for Warfarin: long term care social worker (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 anticoagulants Paroxysmal atrial fibrillation (hcc) Anticoagulation Episode Summary Current INR goal: 2.0-3.0 Assessment: INR result of 2.1 is therapeutic Plan: Sent [employer] message Advised patient to continue current weekly dose Next home INR check scheduled on 07/06/2021 Corinna Arenas RPh Clinical Pharmacist, Pharmacy Anticoagulation Clinic Pharmacy Anticoagulation Clinic Pager: [phone] . documented in this encounterMercy Health [facility]. [facility]04-06-2022 Miscellaneous Notes* Telephone Encounter - Jerrica Rothman RPh - 06/20/2021 4:55 PM EDT Patient was due to test INR today will continue to monitor for results. Jerrica Rothman PharmD documented in this encounterMercy Health St. [facility]04-05-2022 Miscellaneous Notes* Telephone Encounter - Page Palmer - 06/19/2021 8:28 AM EDT Patient given results and verbalized understanding of instructions given. Page Estela * Telephone Encounter - Basilia Cueto APRN.CNP - 06/19/2021 6:54 AM EDT Please inform patient that urine culture did not show any growth of bacteria requiring treatment. She may stop macrobid. Recommend patient follow up with Dr. Arzola as discussed at visit. Basilia Cueto APRN.CNP documented in this encounterMercy Health St. [facility]03-22-2022 History of Present illness Narrative* Aby Bruner DO - 06/05/2021 11:00 AM EDT This office note has been dictated. Aby Bruner DO documented in this encounterMercy Health St. [facility]03-03-2022 History of Present illness Narrative* RT Sahra(R) [...] 17, 2021 5:46 PM documented in this encounterMercy Health St. [facility]11-30-2021 Miscellaneous Notes* Telephone Encounter - Galina Solorzano [...] Are you able to send refills to [facility]? Please advise patient. documented in this encounterMercy Health St. [facility]10-31-2021 NoteHNO ID: [id number] Author: Johnny Turk MD Service: General Surgery [...] VTE Prophylaxis/Anticoagulants 01/12/211999 activity - mobilize patient (nh,ri) VTE Prophylaxis: VTE prophylaxis appropriate SIGNATURE: Johnny Turk MD PATIENT NAME: Christian Landrum DATE: January 14, 2021 TIME: 12:07 [id number] NoteHNO ID: [id number] Author: Wendy Bonilla DO Service: Hospital Medicine Author Type: Physician Type: Progress Notes Filed: 01/13/2021 4:03 PM Note Text: DEPARTMENT OF HOSPITAL MEDICINE PROGRESS NOTE SERVICE DATE: 01/13/2021 SERVICE TIME: 3:50 PM Hospital Medicine/Primary Attending: Wendy Bonilla DO NIGHT AND WEEKEND COVERAGE: [place] COVERAGE: Days: [phone], please page attending physician. Nights: [phone], please page [place] [facility] Night coverage pager [phone]. Subjective INTERVAL HPI: feels well today. No [...] with patient. Outpatient referral as per Dr. Rosalee Hold coumadin probably for one week Monitor [...] fatty liver in the past. Also on penitentiary methotrexate. Noted positive Hepatitis B core ab I ordered the rest of the hepatitis serologies her Home Service Consultant recommended and she will need to f/u with GI outpatient Endometrial thickening on ultrasound Obtain transvaginal US If thickened endometrium then she needs to see (more content not included)... [facility] [id number] NoteHNO ID: [id number] Author: Kamila Rodrigues, CT Service: Radiology Author Type: Clinical Acid Regenerator Type: Progress Notes Filed: 01/12/2021 4:19 PM [...] Landrum DATE: January 12, 2021 TIME: 4:06 [facility] [id number] History of Past illness Narrative* Problem Noted Date Resolved Date Obesity, Class I, BMI 30-34.9 01/12/2021 GI bleed 01/12/2021 01/14/2021 Acute blood loss anemia 01/12/2021 01/15/20 21 LLQ pain 09/05/2017 04/09/2021 Overview: Added automatically from request for surgery [id number] Personal history of breast cancer 12/18/2016 04/09/2021 Overview: Added automatically from request for surgery [id number] Permanent atrial fibrillation 12/26/2015 Diverticulitis of large [...] of this encounter (statuses as of 06/05/2021) [facility]10-29-2021 History of Past illness Narrative* Problem Noted Date Resolved Date Obesity, Class I, BMI 30-34.9 01/12/2021 GI bleed 01/12/2021 01/14/2021 Acute blood loss anemia 01/12/2021 01/15/20 21 LLQ pain 09/05/2017 04/09/2021 Overview: Added automatically from request for surgery [id number] Personal history of breast cancer 12/18/2016 04/09/2021 Overview: Added automatically from request for surgery [id number] Permanent atrial fibrillation 12/26/2015 Diverticulitis of large [...] few months, it was started by Dr. eMrino on recommendation of Dr. Angeline nath documented as of this encounter (statuses as of 06/19/2021) [facility]10-29-2021 History of Past illness Narrative* Problem Noted Date Resolved Date Obesity, Class I, BMI 30-34.9 01/12/2021 GI bleed 01/12/2021 01/14/2021 Acute blood loss anemia 01/12/2021 01/15/20 LLQ pain 09/05/2017 04/09/2021 Overview: Added automatically from request for surgery [id number] Personal history of breast cancer 12/18/2016 04/09/2021 Overview: Added automatically from request for surgery [id number] Permanent atrial fibrillation 12/26/2015 Diverticulitis of large [...] of this encounter (statuses as of 06/22/2021) [facility]10-29-[facility] History of Past illness Narrative* Problem Noted Date Resolved Date Obesity, Class I, BMI 30-34.9 01/12/2021 GI bleed 01/12/2021 01/14/2021 Acute blood loss anemia 01/12/2021 01/15/20 21 LLQ pain 09/05/2017 04/09/2021 Overview: Added automatically from request for surgery [id number] Personal history of breast cancer 12/18/2016 04/09/2021 Overview: Added automatically from request for surgery [id number] Permanent atrial fibrillation 12/26/2015 Diverticulitis of large [...] of this encounter (statuses as of 06/26/2021) [facility] History of Past illness Narrative* Problem Noted Date Resolved Date Obesity, Class I, BMI 30-34.9 01/12/2021 GI bleed 01/12/2021 01/14/2021 Acute blood loss anemia 01/12/2021 01/15/20 21 LLQ pain 09/05/2017 04/09/2021 Overview: Added automatically from request for surgery [id number] Personal history of breast cancer 12/18/2016 04/09/2021 Overview: Added automatically from request for surgery [id number] Permanent atrial fibrillation 12/26/2015 Diverticulitis of large [...] of this encounter (statuses as of 07/03/2021) [facility] History of Past illness Narrative* Problem Noted Date Resolved Date Obesity, Class I, BMI 30-34.9 01/12/2021 GI bleed 01/12/2021 01/14/2021 Acute blood loss anemia 01/12/2021 01/15/20 LLQ pain 09/05/2017 04/09/2021 Overview: Added automatically from request for surgery [id number] Personal history of breast cancer 12/18/2016 04/09/2021 Overview: Added automatically from request for surgery [id number] Permanent atrial fibrillation 12/26/2015 Diverticulitis of large [...] of this encounter (statuses as of 07/05/2021) [facility] History of Past illness Narrative* Problem Noted Date Resolved Date Obesity, Class I, BMI 30-34.9 01/12/2021 GI bleed 01/12/2021 01/14/2021 Acute blood loss anemia 01/12/2021 01/15/20 LLQ pain 09/05/2017 04/09/2021 Overview: Added automatically from request for surgery [id number] Personal history of breast cancer 12/18/2016 04/09/2021 Overview: Added automatically from request for surgery [id number] Permanent atrial fibrillation 12/26/2015 Diverticulitis of large [...] of this encounter (statuses as of 07/05/2021) [facility] History of Past illness Narrative* Problem Noted Date Resolved Date Obesity, Class I, BMI 30-34.9 01/12/2021 GI bleed 01/12/2021 01/14/2021 Acute blood loss anemia 01/12/2021 01/15/20 21 LLQ pain 09/05/2017 04/09/2021 Overview: Added automatically from request for surgery [id number] Personal history of breast cancer 12/18/2016 04/09/2021 Overview: Added automatically from request for surgery [id number] Permanent atrial fibrillation 12/26/2015 Diverticulitis of large [...] of this encounter (statuses as of 07/06/2021) [facility]10-27-2021 NoteHNO ID: [id number] Author: ANIKET Martin Service: Radiology Author Type: Clinical Acid Regenerator Type: Progress Notes Filed: 01/10/2021 10:31 AM [...] STATUS: Discontinued PROCEDURE TYPE: NM Stress: 12.1mCi [id number] was administered IV for Rest Imaging at 9:05 by ANIKET Martin. 31.2 mCi [id number] was administered IV for Stress Imaging at 10:02 by ANIKET Martin. PATIENT DISCHARGED TO: Ambulatory patient, left [place] department area. A Diagnostic radioactive procedure has taken place, with no further precautions necessary other than routine body substance precautions. More information regarding radiation safety can be found using this link: [email or web address] SIGNATURE: Madonna Evangelista [facility] PATIENT NAME: Christian Landrum DATE: January 10, 2021 TIME: 10:30 AM PAGER/CONTACT #:[facility] [id number] History of Present illness Narrative* Gladis Beltran [...] 27, 2020 4:17 PM documented in this encounterMercy Health St. [facility]02-19-2021 History of Present illness Narrative* Gladis Beltran (Rt), [facility] - 05/05/2020 3:00 PM EST Radiology Service [...] 05, 2020 2:54 PM [facility]* Diagnosis Venous (peripheral) insufficiency- Primary Unspecified venous (peripheral) insufficiency documented in this encounter [facility] note* Diagnosis care home (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 anticoagulants Long-term (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 anticoagulants Paroxysmal atrial fibrillation (HCC) Atrial fibrillation documented in this encounter [facility] note* Diagnosis Malignant neoplasm of lower-inner quadrant of right breast of female, estrogen receptor positive (HCC)- Primary documented in this encounter [facility] noteNo assessment information availableWUC Medical Center Work Phone: Evaluation note* Diagnosis Dysuria- Primary Right upper quadrant abdominal pain Abdominal pain, right upper quadrant Chronic anticoagulation Long-term (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 anticoagulants documented in this encounter [facility] note* Diagnosis Polymyalgia rheumatica (HCC)- Primary Polymyalgia rheumatica documented in this encounter [facility] note* Diagnosis Calculus of gallbladder without cholecystitis without obstruction- Primary Calculus of gallbladder without mention of cholecystitis or obstruction Secondary biliary cirrhosis (HCC) Biliary cirrhosis documented in this encounter [facility] note* Diagnosis Malignant neoplasm of lower-inner quadrant of right breast of female, estrogen receptor positive (HCC)- Primary documented in this encounter [facility] note* Diagnosis care home (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 anticoagulants Long-term (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 anticoagulants Paroxysmal atrial fibrillation (HCC) Atrial fibrillation documented in this encounter [facility] note* Diagnosis History of recent hospitalization- Primary Personal history of unspecified disease Dysuria Recurrent UTI Urinary tract infection, site not specified Cirrhosis of liver with ascites, unspecified hepatic cirrhosis type (HCC) Biliary colic Calculus of gallbladder without mention of cholecystitis or obstruction documented in this encounter [facility] note* Diagnosis Dysuria- Primary documented in this encounter [facility] note* Diagnosis long term care social worker (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 anticoagulants Long-term (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 anticoagulants Paroxysmal atrial fibrillation (HCC) Atrial fibrillation [facility]* Diagnosis Acute cystitis without hematuria- Primary Acute cystitis PMB (postmenopausal bleeding) Postmenopausal bleeding Endometrial thickening on ultrasound documented in this encounter [facility]* Diagnosis long term care social worker (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 anticoagulants Long-term (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 anticoagulants Paroxysmal atrial fibrillation (HCC) Atrial fibrillation documented in this encounter [facility]* Diagnosis Onset Date Resolution Status Endometrial thickening on ultrasound acute PMB (postmenopausal bleeding) acute History of diverticulitis of colon [facility] Work Phone: Evaluation note* Diagnosis PMB (postmenopausal bleeding)- Primary Postmenopausal bleeding Endometrial thickening on ultrasound documented in this encounter [facility]* Diagnosis Old laceration of cervix uteri- Primary Old laceration of cervix Abnormal uterine bleeding (AUB) documented in this encounter [facility]* Diagnosis Recurrent UTI- Primary Urinary tract infection, site not specified Mixed stress and urge urinary incontinence Mixed incontinence urge and stress (male)(female) Old laceration of cervix uteri Old laceration of cervix documented in this encounter 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* Diagnosis Old laceration of cervix uteri- Primary Old laceration of cervix documented in this encounter [facility]* Diagnosis Malignant neoplasm of lower-inner quadrant of right breast of female, estrogen receptor positive (HCC)- Primary documented in this encounter [facility]* Diagnosis Malignant neoplasm of lower-inner quadrant of right breast of female, estrogen receptor positive (HCC)- Primary documented in this encounter [facility]* Diagnosis Recurrent UTI- Primary Urinary tract infection, site not specified History of ESBL E. coli infection Personal history of other infectious and parasitic disease Mixed stress and urge urinary incontinence Mixed incontinence urge and stress (male)(female) documented in this encounter [facility]* Diagnosis Recurrent UTI Urinary tract infection, site not specified History of ESBL E. coli infection Personal history of other infectious and parasitic disease documented in this encounter 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* Diagnosis Onset Date Resolution Status History of diverticulitis of colon chronic Endometrial thickening on ultrasound resolved PMB (postmenopausal bleeding) resolved [facility] Work Phone: Evaluation note* Diagnosis BRBPR (bright red blood per rectum)- Primary Hemorrhage of rectum and anus long term care social worker (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 anticoagulants Long-term (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 anticoagulants Paroxysmal atrial fibrillation (HCC) Atrial fibrillation documented in this encounter [facility]* Diagnosis care home (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 anticoagulants Long-term (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 anticoagulants Paroxysmal atrial fibrillation (HCC) Atrial fibrillation documented in this encounter [facility]* Diagnosis Malignant neoplasm of lower-inner quadrant of right breast of female, estrogen receptor positive (HCC)- Primary documented in this encounter [facility]* Diagnosis Malignant neoplasm of lower-inner quadrant of right breast of female, estrogen receptor positive (HCC)- Primary documented in this encounter [facility]* Diagnosis Recurrent UTI- Primary Urinary tract infection, site not specified History of ESBL E. coli infection Personal history of other infectious and parasitic disease Vaginal atrophy Postmenopausal atrophic vaginitis documented in this encounter [facility]* Diagnosis Primary osteoarthritis of both knees- Primary Primary localized osteoarthrosis, lower leg Chronic pain of right knee documented in this encounter [facility]* Diagnosis Anemia, unspecified type- Primary documented in this encounter [facility]* Diagnosis Malignant neoplasm of lower-inner quadrant of right breast of female, estrogen receptor positive (HCC)- Primary documented in this encounter 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 Other specified intestinal malabsorption [facility]* Diagnosis Chest pain, unspecified type- Primary Paroxysmal atrial fibrillation (HCC) Atrial fibrillation Rheumatic mitral regurgitation Rheumatic mitral insufficiency Essential hypertension Unspecified essential hypertension Mixed hyperlipidemia Obstructive sleep apnea syndrome Obstructive sleep apnea (adult) (pediatric) Shortness of breath [facility]* Diagnosis Personal history of breast cancer- Primary Personal history of malignant neoplasm of breast Rib pain on right side Chest pain, unspecified [facility]* Diagnosis Personal history of breast cancer- Primary Personal history of malignant neoplasm of breast [facility] Diagnosis Personal history of breast cancer- Primary Personal history of malignant neoplasm of breast 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 blood loss (chronic) [facility]* Diagnosis Paroxysmal atrial fibrillation (HCC)- Primary Atrial fibrillation Rheumatic mitral regurgitation Rheumatic mitral insufficiency Essential hypertension Unspecified essential hypertension Mixed hyperlipidemia Obstructive sleep apnea syndrome Obstructive sleep apnea (adult) (pediatric) Shortness of breath PAF (paroxysmal atrial fibrillation) (HCC) Atrial fibrillation SVT (supraventricular tachycardia) (HCC) Other specified cardiac dysrhythmias [facility] Diagnosis Encounter for care related to vascular access port- Primary Fitting and adjustment of vascular catheter [facility] Diagnosis Pain in right wrist- Primary Pain in joint, forearm Primary osteoarthritis of both knees Primary localized osteoarthrosis, lower leg CMC arthritis Unspecified arthropathy, hand [facility]* Diagnosis Essential hypertension- Primary Unspecified [...] Chest pain, unspecified [facility]* Diagnosis Pain in right wrist Pain in joint, forearm [facility] [...] [facility]* Diagnosis On prednisone therapy Screening for osteoporosis Special screening for osteoporosis [facility]* Diagnosis Primary osteoarthritis of both knees- Primary Primary localized osteoarthrosis, lower leg [facility]* Diagnosis Rheumatic mitral regurgitation- Primary Rheumatic mitral insufficiency Paroxysmal atrial fibrillation (HCC) Atrial fibrillation Essential hypertension Unspecified essential hypertension Obstructive sleep apnea syndrome Obstructive sleep apnea (adult) (pediatric) Mixed hyperlipidemia Shortness of breath SVT (supraventricular tachycardia) (HCC) Other specified cardiac dysrhythmias [facility] Chronic pain of left knee- Primary Pain in joint, lower leg Primary osteoarthritis of both knees Primary localized osteoarthrosis, lower leg [facility] Diagnosis Primary osteoarthritis of both knees Primary localized osteoarthrosis, lower leg [facility] Diagnosis Primary osteoarthritis of both knees- Primary Primary localized osteoarthrosis, lower leg [facility] Diagnosis Rheumatoid arthritis involving multiple sites, unspecified whether rheumatoid factor present (HCC)- Primary Osteopenia of multiple sites Medication monitoring encounter Encounter for therapeutic drug monitoring Long-term use of Plaquenil Encounter for long-term (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 other medications Platelets decreased (HCC) Thrombocytopenia, unspecified [facility] Diagnosis Recurrent UTI- Primary Urinary tract infection, site not specified Vaginal atrophy Postmenopausal atrophic vaginitis [facility] Diagnosis 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, unspecified laterality (HCC)- Primary [facility] Diagnosis Rheumatoid arthritis involving multiple sites with positive rheumatoid factor (HCC)- Primary Iron deficiency Iron deficiency anemia, unspecified [facility] Diagnosis Malignant neoplasm of lower-inner quadrant of 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, estrogen receptor positive (HCC)- Primary 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 blood loss (chronic) [facility] Diagnosis Rheumatoid arthritis involving multiple sites with positive rheumatoid factor (HCC)- Primary [facility] Diagnosis Rheumatoid arthritis involving multiple sites with positive rheumatoid factor (HCC)- Primary [facility] Diagnosis Rheumatoid arthritis of multiple [...] factor, unspecified laterality (HCC) SVT (supraventricular tachycardia) ([facility]) Other specified cardiac dysrhythmias Rheumatoid arthritis involving multiple sites, unspecified whether rheumatoid factor present ([facility])- Primary Senile osteoporosis Medication monitoring encounter Encounter for therapeutic drug monitoring [facility] Diagnosis Rheumatoid arthritis of multiple sites [...] deficiency anemia, unspecified documented in this encounter [facility] note* Diagnosis Rheumatoid arthritis of [...] deficiency anemia, unspecified documented in this encounter [facility] note* Diagnosis Rheumatoid arthritis of [...] factor (HCC)- Primary documented in this encounter [facility] note* Diagnosis Rheumatoid arthritis of [...] Senile osteoporosis- Primary [facility] Diagnosis Rheumatoid arthritis of [...] cardiac dysrhythmias Cough documented [facility] Diagnosis Rheumatoid arthritis of multiple sites [...] unspecified fever cause [facility] this [facility] Diagnosis Rheumatoid arthritis of multiple sites [...] Chronic cough Cough [facility] in this [facility]* Diagnosis Rheumatoid arthritis of multiple sites [...] factor (HCC)- Primary documented in this encounter [facility] note* Diagnosis Rheumatoid arthritis of [...] blood loss (chronic) [facility] Diagnosis Rheumatoid arthritis of multiple sites [...] in stool contents documented in this encounter [facility] note* Diagnosis Rheumatoid arthritis of [...] specified intestinal malabsorption documented in this encounter [facility] note* Diagnosis Rheumatoid arthritis of [...] monitoring documented in this encounter [facility]* Diagnosis Rheumatoid arthritis of multiple sites [...] specified intestinal malabsorption documented [facility] this [facility] Diagnosis Rheumatoid arthritis of multiple sites [...] region and thigh documented in this [facility] Diagnosis Rheumatoid arthritis of multiple sites [...] contents documented in this encounter [facility]* Diagnosis Rheumatoid arthritis of multiple sites [...] factor, unspecified laterality (HCC) SVT (supraventricular tachycardia) ([facility]) Other specified cardiac dysrhythmias Rheumatoid arthritis involving multiple sites, unspecified whether rheumatoid factor present ([facility])- Primary Senile osteoporosis On prednisone therapy documented in this [facility] Diagnosis Rheumatoid arthritis of multiple sites [...] whether rheumatoid factor present (HCC) Senile osteoporosis [facility] Diagnosis Rheumatoid arthritis of multiple sites [...] On prednisone therapy documented in this encounter [facility] Discharge instructions Additional Instructions Call and follow-up [...] either Friday or before you restart it. [facility] Work Phone: [facility]: [facility]: [facility] Work Phone[facility] Work Phone: Hospital Discharge instructions Additional Instructions You are going to stop your Coumadin for 2 days. You are going to take the Aygestin 5 mg twice a day for 5 days. Please return here for worsening bleeding, dizziness, chest pain, any other concerns. [facility]charge instructions Additional Instructions Please follow-up with your PCP. Please use Tylenol for any fevers.[facility] Work Phone: Hospital Discharge instructions Additional Instructions You were given 1 unit of blood. Please follow-up with your primary care doctor for further monitoring of your blood levels.[facility] Work Phone: Reason for referral (narrative)* Outpatient [...] LDS W/I&R Cecilio Ibarra DO [address] [address] [facility] [place] [address] [place] [id number] Referral ID Status Reason Start Date Expiration Date V isits Requested Visits Authorized [id number] Closed Auto-Generate d Referral 09/05/2021 09/05/2022 1 1 [place] for referral (narrative)* Diagnostic Procedure Only (Routine) - Closed Specialty Diagnoses / Procedures Referred By Contac t Referred To Contact XR IMAGING Diagnoses Personal history of breast cancer Rib pain on right side Procedures XR RIBS 2V AP/OBL RIGHT RADEX RIBS UNILATERAL 2 VIEWS Cassidy Arreola APRN.[facility] [address] [place] [address] Xr Imaging Referral ID Status Reason Start Date Expiration Date V isits Requested Visits Authorized [id number] Closed Auto-Generate d Referral 06/05/2022 07/05/2023 1 1 [place] for referral (narrative)* Diagnostic Procedure Only (Routine) - Closed Specialty Diagnoses / Procedures Referred By Contac t Referred To Contact XR IMAGING Diagnoses Pain in right wrist Procedures XR WRIST GENERAL 3V PA/LAT/OBL RIGHT RADEX WRIST COMPLETE MINIMUM 3 VIEWS Stella Preciado PA-C [address] [place] [address] [place] [address] Referral ID Status Reason Start Date Expiration Date V isits Requested Visits Authorized [id number] Closed Auto-Generate d Referral 11/25/2022 12/25/2023 1 1 [place] for referral (narrative)* Diagnostic Procedure Only (Routine) - Closed Specialty Diagnoses / Procedures Referred By Contac t Referred To Contact XR IMAGING Diagnoses Personal history of breast cancer Rib pain on right side Procedures XR RIBS 2V AP/OBL RIGHT RADEX RIBS UNILATERAL 2 VIEWS Cassidy Arreola APRN.CNP [address] [place] [address] [place] [address] Referral ID Status Reason Start Date Expiration Date V isits Requested Visits Authorized [id number] Closed Auto-Generate d Referral 06/05/2022 07/05/2023 1 1 [place] for referral (narrative)* Diagnostic Procedure Only (Routine) - Closed Specialty Diagnoses / Procedures Referred By Michael mcgowan Referred To Contact XR IMAGING Diagnoses Pain in right wrist Procedures XR WRIST GENERAL 3V PA/LAT/OBL RIGHT RADEX WRIST COMPLETE MINIMUM 3 VIEWS Stella Preciado PA-C [address] [place] [address] [place] [address] Referral ID Status Reason Start Date Expiration Date V isits Requested Visits Authorized [id number] Closed Auto-Generate d Referral 11/25/2022 12/25/2023 1 1 [place] for referral (narrative)* Diagnostic Procedure Only (Routine) - Pending Review Specialty Diagnoses / Procedures Referred By Michael mcgowan Referred To Contact XR IMAGING Diagnoses Primary osteoarthritis of both knees Procedures XR KNEE GENERAL 4V AP BOTH/PA BOTH/LAT/MERC BILATERAL RADIOLOGIC EXAM KNEE COMPLETE 4/MORE VIEWS Stella Preciado PA-C [address] [place] [address] Xr Imaging [facility] Referral ID Status Reason Start Date Expiration Date Visits Requested Visits Authorized [id number] Pending Review Auto-Generat ed Referral 06/10/2023 07/09/2024 1 1 [place] for referral (narrative)No reason for referral information availableWUC Medical Center Work Phone: Reason for referral (narrative)* Clinic-Administered Medication (Routine) - Authorized Specialty Diagnoses / Procedures Referred By Michael mcgowan Referred To Contact Thalia Astorga MD [address] [place] [address] Phone: tel: fax: Linh Colindres [facility] [place] [address] Referral ID Status Reason Start Date Expiration Date Visits Requested Visits Authorized [id number] Authorized Auto-Generat ed Referral 08/27/2024 11/25/2024 2 2 [place] for visit Narrative* Diagnostic Procedure Only (Routine) - Closed Specialty Diagnoses / Procedures Referred By Contac t Referred To Contact XR IMAGING Diagnoses Personal history of breast cancer Rib pain on right side Procedures XR RIBS 2V AP/OBL RIGHT RADEX RIBS UNILATERAL 2 VIEWS Cassidy Arreola, SIL[facility] [address] [place] [address] [place] [address] Referral ID Status Reason Start Date Expiration Date V isits Requested Visits Authorized [id number] Closed Auto-Generate d Referral 06/05/2022 07/05/2023 1 1 [place] for visit Narrative* Diagnostic Procedure Only (Routine) - Closed Specialty Diagnoses / Procedures Referred By Contac t Referred To Contact XR IMAGING Diagnoses Pain in right wrist Procedures XR WRIST GENERAL 3V PA/LAT/OBL RIGHT RADEX WRIST COMPLETE MINIMUM 3 VIEWS Vetovitz, Stella, PA-C [address] [place] [address] [place] [address] Referral ID Status Reason Start Date Expiration Date V isits Requested Visits Authorized [id number] Closed Auto-Generate d Referral 11/25/2022 12/25/2023 1 1 [place] for visit Narrative* Diagnostic Procedure Only (Routine) - Closed Specialty Diagnoses / Procedures Referred By Contac t Referred To Contact XR IMAGING Diagnoses Primary osteoarthritis of both knees Procedures XR KNEE GENERAL 4V AP BOTH/PA BOTH/LAT/MERC BILATERAL RADIOLOGIC EXAM KNEE COMPLETE 4/MORE VIEWS Vetovitz, Stella, PA-C [address] [place] [address] [place] [address] Referral ID Status Reason Start Date Expiration Date V isits Requested Visits Authorized [id number] Closed Auto-Generate d Referral 06/10/2023 07/09/2024 1 1 [place] for visit Narrative* Diagnostic Procedure Only (Routine) - Closed Specialty Diagnoses / Procedures Referred By Michael t Referred To Contact XR IMAGING Diagnoses Bilateral hip pain Procedures XR HIP BILATERAL 5V PEL/AP/LAT EACH HIP RADEX HIPS BILATERAL WITH PELVIS MINIMUM 5 VIEWS Cassidy Arreola APRN.[facility] [address] [place] [address] [place] [address] Referral ID Status Reason Start Date Expiration Date V isits Requested Visits Authorized [id number] Closed Auto-Generate d Referral 02/24/2024 03/25/2025 [address] [facility] Summary Purpose Family History No Family History Records FoundNo Family History Records FoundNo Family History Records FoundNo Family History Records FoundNo Family History Records Found Advance Directives No Advanced Directives Records FoundDocuments on File Type Date Recorded Patient Certified Athletic Trainer Expl anation Advance Directive(s) 01/12/2021 1:54 PM [...] No July 03, 2021 12:32am Power of Medical Researcher No July 03 12:32am Documents on File Type Date Recorded Patient Certified Athletic Trainer Expl anation Advance Directive(s) 07/06/2021 12:56 PM [...] Maker Relationship: Health Ca re Power of Medical Researcher Agent Latest Code Status on File Code Status Date Activated Date Inactivated Comments DNR-CCA 07/06/2021 6:27 PM 2021 5:16 PM Documents on File Type Date Recorded Patient Certified Athletic Trainer Expl anation Advance Directive(s) 08/12/2021 4:09 PM [...] August 20, 2021 8 :39am Power of Medical Researcher Yes August 20, 2021 8:39am Advance Directive Response Recorded Date/ Time Name of Medical Power of Medical Researcher DAUGHTER August 20, 2021 8:39am Living Will Yes August 26, 2021 1:00pm Power of Medical Researcher Yes August 26 1:00pm Documents on File Type Date Recorded Patient Certified Athletic Trainer Expl anation Advance Directive(s) 08/12/2021 4:09 PM [...] Date/ Time Name of Medical Power of Medical Researcher DAUGHTER August 20, 2021 8:39am Name of Medical Power of Medical Researcher eloisa August 26, 2021 1:00pm Living Will No October 18, 2021 11:00am Power of Medical Researcher No October 18 11:00am Documents on File Type Date Recorded Patient Certified Athletic Trainer Expl anation Advance Directive(s) 09/28/2020 12:50 PM Advance Directive(s) 12/28/2008 Advance Directive Response Recorded Date/ Time Living Will No December 28 12:16pm Power of Medical Researcher No December 28, 2021 12:16pm Advance Directive Response Recorded Date/ Time Living Will No December 28 11:16am Power of Medical Researcher No December 28, 2021 11:16am Documents on File Type Date Recorded Patient Certified Athletic Trainer Expl anation Advance Directive(s) 09/28/2020 12:50 PM [...] Decision Maker Relationship: Health Care Power of Medical Researcher Agent Latest Code Status on File Code [...] Decision Maker Relationship: Health Care Power of Medical Researcher Agent Advance Directive Response Recorded Date/ Time Living Will No April 07 1:01pm Power of Medical Researcher No April 07, 2023 1:01pm Advance Directive Response Recorded Date/ Time Living Will No April 07 2:01pm Power of Medical Researcher No April 07, 2023 2:01pm Date Activated Date Inactivated Comments 08/12/2021 8:33 PM 08/13/2021 5:51 PM Question Answer Comments DNR Order Discussed With: Patient Date Activated Date Inactivated Comments 07/06/2021 6:27 PM 2021 5:16 PM Question Answer Comments DNR Order Discussed With: Adrien Lazarois ion Maker Surrogate Decision Maker Relationship: Health Ca re Power of Medical Researcher Agent Date Activated Date Inactivated Comments 08/12/2021 8:33 PM 08/13/2021 5:51 PM Question Answer Comments DNR Order Discussed With: Patient Date Activated Date Inactivated Comments 07/06/2021 6:27 PM 2021 5:16 PM Question Answer Comments DNR Order Discussed With: PatientSurrogate Decis ion Maker Surrogate Decision Maker Relationship: Health Ca re Power of Medical Researcher Agent Chief Complaint and Reason for Visit Chief Complaint abd Chief Complaint abd LONGTERM BLOOD WORK Chief Complaint abd LONGTERM BLOOD WORK LAB WORK LAB WORK Chief Complaint abd LONGTERM BLOOD WORK LAB WORK LAB WORK hyster d&c symphion, polypectomy Reason for Visit Endometrial thickeni ng on ultrasound PMB (postmenopausal bleeding) History of diverticulitis of colon Chief Complaint abd LONGTERM BLOOD WORK LAB WORK LAB WORK hyster d&c symphion, polypectomy VAGINAL BLEEDING POST OP D&C ON 08/24 Reason for Visit Endometrial thickeni ng on ultrasound PMB (postmenopausal bleeding) History of diverticulitis of colon Chief Complaint abd LONGTERM BLOOD WORK LAB WORK LAB WORK hyster d&c symphion, polypectomy VAGINAL BLEEDING POST OP D&C ON 08/24 ABN Reason for Visit History of diverticu litis of colon Endometrial thickening on ultrasound PMB (postmenopausal bleeding) Chief Complaint LONGTERM BLOOD W ORK LAB WORK LAB WORK hyster d&c symphion, polypectomy VAGINAL BLEEDING POST OP D&C ON 08/24 ABN LONGTERM LAB WORK Reason for Visit History of diverticu litis of colon Endometrial thickening on ultrasound PMB (postmenopausal bleeding) Chief Complaint hyster d&c symphion, polypectomy VAGINAL BLEEDING POST OP D&C ON 08/24 ABN LONGTERM LAB WORK LABWORK LONGTERM LAB WORK Reason for Visit History of diverticu litis of colon Endometrial thickening on ultrasound PMB (postmenopausal bleeding) Chief Complaint ABN LONGTERM LAB WORK LABWORK LONGTERM LAB WORK LONGTERM LABWORK LONGTERM LABWORK NEW SYMPTOMS/CONCERN NEW SYMPTOMS/CONCERN ABNORMAL LABS Chief Complaint ABN LONGTERM LAB WORK LABWORK LONGTERM LAB WORK LONGTERM LABWORK LONGTERM LABWORK NEW SYMPTOMS/CONCERN LONGTERM LABWORK NEW SYMPTOMS/CONCERN ABNORMAL LABS NEW SYMPTOMS/CONCERN LONGTERM LAB WORK Chief Complaint ABN LONGTERM LAB WORK LABWORK LONGTERM LAB WORK LABWORK LONGTERM LABWORK LONGTERM LABWORK NEW SYMPTOMS/CONCERN LONGTERM LABWORK NEW SYMPTOMS/CONCERN LONGTERM LABWORK ABNORMAL LABS NEW SYMPTOMS/CONCERN LONGTERM LAB WORK Chief Complaint ABN LONGTERM LAB WORK LABWORK LONGTERM LAB WORK LABWORK LONGTERM LABWORK LONGTERM LABWORK NEW SYMPTOMS/CONCERN LONGTERM LABWORK NEW SYMPTOMS/CONCERN LONGTERM LABWORK ABNORMAL LABS NEW SYMPTOMS/CONCERN LONGTERM LAB WORK LONGTERM LABWORK Chief Complaint ABN LONGTERM LAB WORK LABWORK LONGTERM LAB WORK LABWORK LONGTERM LABWORK LONGTERM LABWORK NEW SYMPTOMS/CONCERN LONGTERM LABWORK NEW SYMPTOMS/CONCERN LONGTERM LABWORK ABNORMAL LABS NEW SYMPTOMS/CONCERN LONGTERM LAB WORK LONGTERM LABWORK LONGTERM LABWORK Chief Complaint LABWORK LONGTERM LAB WORK LABWORK LONGTERM LABWORK LONGTERM LABWORK NEW SYMPTOMS/CONCERN LONGTERM LABWORK NEW SYMPTOMS/CONCERN LONGTERM LABWORK ABNORMAL LABS NEW SYMPTOMS/CONCERN LONGTERM LAB WORK LONGTERM LABWORK LONGTERM LABWORK LONGTERM LABWORK LONGTERM LAB WORK [address] UNITS [facility] Chief Complaint LONGTERM LAB WOR K LABWORK LONGTERM LABWORK LONGTERM LABWORK NEW SYMPTOMS/CONCERN LONGTERM LABWORK NEW SYMPTOMS/CONCERN LONGTERM LABWORK ABNORMAL LABS NEW SYMPTOMS/CONCERN LONGTERM LAB WORK LONGTERM LABWORK LONGTERM LABWORK LONGTERM LABWORK LONGTERM LAB WORK 2 UNITS [facility] Chief Complaint LABWORK LONGTERM LABWORK LONGTERM LABWORK NEW SYMPTOMS/CONCERN LONGTERM LABWORK NEW SYMPTOMS/CONCERN LONGTERM LABWORK ABNORMAL LABS NEW SYMPTOMS/CONCERN LONGTERM LAB WORK LONGTERM LABWORK LONGTERM LABWORK LONGTERM LABWORK LONGTERM LABWORK LONGTERM LAB WORK 2 UNITS [facility] NEW SYMPTOMS/CONCERNS Chief Complaint LABWORK LONGTERM LABWORK LONGTERM LABWORK NEW SYMPTOMS/CONCERN LONGTERM LABWORK NEW SYMPTOMS/CONCERN LONGTERM LABWORK ABNORMAL LABS NEW SYMPTOMS/CONCERN LONGTERM LAB WORK LONGTERM LABWORK LONGTERM LABWORK LONGTERM LABWORK LONGTERM LABWORK LONGTERM LAB WORK 2 UNITS [facility] LONGTERM LABWORK NEW SYMPTOMS/CONCERNS NEW SYMPTOMS/CONCERN Chief Complaint LONGTERM LABWORK ABNORMAL LABS NEW SYMPTOMS/CONCERN LONGTERM LAB WORK LONGTERM LABWORK LONGTERM LABWORK LONGTERM LABWORK LONGTERM LABWORK LONGTERM LAB WORK 2 UNITS [facility] LONGTERM LABWORK NEW SYMPTOMS/CONCERNS NEW SYMPTOMS/CONCERN LABWORK Chief Complaint LONGTERM LABWORK LONGTERM LAB WORK 2 UNITS [facility] LONGTERM LABWORK NEW SYMPTOMS/CONCERNS NEW SYMPTOMS/CONCERN LABWORK LONGTERM LABWORK new symptoms Chief Complaint LONGTERM LAB WOR K 2 UNITS [facility] LONGTERM LABWORK NEW SYMPTOMS/CONCERNS NEW SYMPTOMS/CONCERN LABWORK LONGTERM LABWORK new symptoms LABWORK Chief Complaint NEW SYMPTOMS/CONCERN S NEW SYMPTOMS/CONCERN LABWORK LONGTERM LABWORK new symptoms LABWORK LABWORK Chief Complaint LABWORK NEW CONCERN LONGTERM LABWORK LONGTERM LAB WORK LABWORK LABWORK Chief Complaint LONGTERM LAB WOR K LABWORK LABWORK LONGTERM LAB WORK LABWORK Chief Complaint LABWORK LONGTERM LAB WORK LABWORK LONGTERM LABWORK Chief Complaint LABWORK NEW CONCERN LONGTERM LABWORK LONGTERM LABWORK LONGTERM LABWORK Chief Complaint NEW CONCERN LONGTERM LABWORK FOLLOW UP NOTE LONGTERM LABWORK NEW CONCERN LONGTERM LABWORK LABWORK Chief Complaint FOLLOW UP NOTE LONGTERM LABWORK NEW CONCERN LONGTERM LABWORK LABWORK LABWORK Chief Complaint LONGTERM LABWORK NEW CONCERN LONGTERM LABWORK LABWORK LABWORK LABWORK Chief Complaint Admit Date LONGTERM LAB WORK March 01 5:00am LONGTERM LAB WORK March 02 5:00am LONGTERM LAB WORK April 05, 2024 5:00am LONGTERM LAB WORK April 23, 2024 4:00am LONGTERM LABWORK May 03, 2024 5:00am NEW CONCERN May 13, 2024 3:32pm LABWORK May 13, 2024 9:45pm LABWORK May 31, 2024 5:0 0am Chief Complaint Admit Date LONGTERM LAB WORK April 05, 2024 5:00am LONGTERM LAB WORK April 23, 2024 4:00am LONGTERM LABWORK May 03, 2024 5:00am NEW CONCERN May 13, 2024 3:32pm LABWORK May 13, 2024 9:45pm LABWORK May 31, 2024 5:0 0am LABWORK June 16, 2024 5:00 am LABWORK July 05, 2024 5:0 0am NEW CONCERN July 06, 2024 2:2 6pm Chief Complaint Admit Date LONGTERM LAB WORK April 05, 2024 5:00am LONGTERM LAB WORK April 23, 2024 4:00am LONGTERM LABWORK May 03, 2024 5:00am NEW CONCERN May 13, 2024 3:32pm LABWORK May 13, 2024 9:45pm LABWORK May 31, 2024 5:0 0am LABWORK June 16, 2024 5:00 am LABWORK July 05, 2024 5:0 0am NEW CONCERN July 06, 2024 2:2 6pm LABWORK July 07, 2024 5:0 0am Chief Complaint Admit Date LONGTERM LAB WORK April 05, 2024 5:00am LONGTERM LAB WORK April 23, 2024 4:00am LONGTERM LABWORK May 03, 2024 5:00am NEW CONCERN May 13, 2024 3:32pm LABWORK May 13, 2024 9:45pm LABWORK May 31, 2024 5:0 0am LABWORK June 16, 2024 5:00 am LABWORK July 05, 2024 5:0 0am NEW CONCERN July 06, 2024 2:2 6pm LABWORK July 07, 2024 5:0 0am LABWORK July 08, 2024 12: 00pm Chief Complaint Admit Date LONGTERM LAB WORK April 23, 2024 4:00am LONGTERM LABWORK May 03, 2024 5:00am NEW CONCERN May 13, 2024 3:32pm LABWORK May 13, 2024 9:45pm LABWORK May 31, 2024 5:0 0am LABWORK June 16, 2024 5:00 am LABWORK July 05, 2024 5:0 0am NEW CONCERN July 06, 2024 2:2 6pm LABWORK July 07, 2024 5:0 0am LABWORK July 08, 2024 12: 00pm LONGTERM LAB WORK August 02, 2024 4:0 0am UTI, DIARRHEA, BLADDER FISTULA August 06, 2024 2:19pm Chief Complaint Admit Date LONGTERM LAB WORK April 23, 2024 4:00am LONGTERM LABWORK May 03, 2024 5:00am NEW CONCERN May 13, 2024 3:32pm LABWORK May 13, 2024 9:45pm LABWORK May 31, 2024 5:0 0am LABWORK June 16, 2024 5:00 am LABWORK July 05, 2024 5:0 0am NEW CONCERN July 06, 2024 2:2 6pm LABWORK July 07, 2024 5:0 0am LABWORK July 08, 2024 12: 00pm LONGTERM LAB WORK August 02, 2024 4:0 0am UTI, DIARRHEA, BLADDER FISTULA August 06, 2024 2:19pm LEFT ULNA August 13, 2024 2:06p m Room 4 August 13, 2024 2:32p m Chief Complaint Admit Date LONGTERM LAB WORK April 23, 2024 4:00am LONGTERM LABWORK May 03, 2024 5:00am NEW CONCERN May 13, 2024 3:32pm LABWORK May 13, 2024 9:45pm LABWORK May 31, 2024 5:0 0am LABWORK June 16, 2024 5:00 am LABWORK July 05, 2024 5:0 0am NEW CONCERN July 06, 2024 2:2 6pm LABWORK July 07, 2024 5:0 0am LABWORK July 08, 2024 12: 00pm LONGTERM LAB WORK August 02, 2024 4:0 0am UTI, DIARRHEA, BLADDER FISTULA August 06, 2024 2:19pm LEFT ULNA August 13, 2024 2:06p m Room 4 August 13, 2024 2:32p m LEFT ULNA August 18, 2024 2:33p m Room 4 August 18, 2024 2:51p m Reason for Visit Admit Date Fall August 13, 2024 2:06p m Fx distal ulna-closed August 13, 2024 2:0 6pm Chief Complaint Admit Date NEW CONCERN May 13, 2024 3:32pm LABWORK May 13, 2024 9:45pm LABWORK May 31, 2024 5:0 0am LABWORK June 16, 2024 5:00 am LABWORK July 05, 2024 5:0 0am NEW CONCERN July 06, 2024 2:2 6pm LABWORK July 07, 2024 5:0 0am LABWORK July 08, 2024 12: 00pm LONGTERM LAB WORK August 02, 2024 4:0 0am UTI, DIARRHEA, BLADDER FISTULA August 06, 2024 2:19pm LEFT ULNA August 13, 2024 2:06p m Room 4 August 13, 2024 2:32p m LEFT ULNA August 18, 2024 2:33p m Room 4 August 18, 2024 2:51p m LABWORK August 30, 2024 5:00 am LEFT ULNA September 03, 2024 1:55 pm CAST ROOM September 03, 2024 2:12 pm Reason for Visit Admit Date fallAugust 13, 2024 2:06p m Fx distal ulna-closed August 13, 2024 2:0 6pm Fall August 18, 2024 2:33p m Fx distal ulna-closed August 18, 2024 2:3 3pm Chief Complaint Admit Date NEW CONCERN May 13, 2024 3:32pm LABWORK May 13, 2024 9:45pm LABWORK May 31, 2024 5:0 0am LABWORK June 16, 2024 5:00 am LABWORK July 05, 2024 5:0 0am NEW CONCERN July 06, 2024 2:2 6pm LABWORK July 07, 2024 5:0 0am LABWORK July 08, 2024 12: 00pm LONGTERM LAB WORK August 02, 2024 4:0 0am UTI, DIARRHEA, BLADDER FISTULA August 06, 2024 2:19pm LEFT ULNA August 13, 2024 2:06p m Room 4 August 13, 2024 2:32p m LEFT ULNA August 18, 2024 2:33p m Room 4 August 18, 2024 2:51p m LABWORK August 30, 2024 5:00 am LEFT ULNA September 03, 2024 1:55 pm CAST ROOM September 03, 2024 2:12 pm CHRONIC LOOSE STOOLS September 07, 2024 2:2 4pm Reason for Visit Admit Date fallAugust 13, 2024 2:06p m Fx distal ulna-closed August 13, 2024 2:0 6pm Fall August 18, 2024 2:33p m Fx distal ulna-closed August 18, 2024 2:3 3pm Fall September 03, 2024 1:55 pm Fx distal ulna-closed September 03, 2024 1: 55pm Chief Complaint Admit Date NEW CONCERN May 13, 2024 3:32pm LABWORK May 13, 2024 9:45pm LABWORK May 31, 2024 5:0 0am LABWORK June 16, 2024 5:00 am LABWORK July 05, 2024 5:0 0am NEW CONCERN July 06, 2024 2:2 6pm LABWORK July 07, 2024 5:0 0am LABWORK July 08, 2024 12: 00pm LONGTERM LAB WORK August 02, 2024 4:0 0am UTI, DIARRHEA, BLADDER FISTULA August 06, 2024 2:19pm NEW CONCERN August 12, 2024 12:58 pm LEFT ULNA August 13, 2024 2:06p m Room 4 August 13, 2024 2:32p m LEFT ULNA August 18, 2024 2:33p m Room August 18, 2024 2:51p m LABWORK August 30, 2024 5:00 am LEFT ULNA September 03, 2024 1:55 pm CAST ROOM September 03, 2024 2:12 pm CHRONIC LOOSE STOOLS September 07, 2024 2:2 4pm Reason for Visit Admit Date fallAugust 13, 2024 2:06p m Fx distal ulna-closed August 13, 2024 2:0 6pm fallAugust 18, 2024 2:33p m Fx distal ulna-closed August 18, 2024 2:3 3pm Fall September 03, 2024 1:55 pm Fx distal ulna-closed September 03, 2024 1: 55pm Change in bowel habits September 07, 2024 2 :24pm Health Concerns Infection Onset Date Last Indicated [...] incontinence Procedures CONSULT TO URO GYNECOLOGY OFFICE/OUTPATIENT [facility] MDM 60-74 MINUTES Jayde Hebert MD [address] [place] [address] Referral ID Status Reason Start Date Expiration Date Visits Requested Visits Authorized [id number] Authorized PCP Requested Referral Auto-Generate d Referral 08/30/2021 11/28/2021 1 1 Specialty Diagnoses / Procedures Referred By Contac t Referred To Contact Infectious Diseases Diagnoses Recurrent UTI History of ESBL E. coli infection Procedures CONSULT TO INFECTIOUS DISEASES OFFICE/OUTPATIENT [facility] MDM 60-74 MINUTES Basilia Hernández MD [address] [address] Referral ID Status Reason Start Date Expiration Date Visits Requested Visits Authorized [id number] Authorized PCP Requested Referral 09/26/2021 09/26/2022 1 1 Specialty Diagnoses / Procedures Referred By Contac t Referred To Contact CT IMAGING Diagnoses Iron deficiency anemia due to chronic blood loss Bilateral hip pain Generalized abdominal pain Abdominal bloating Personal history of breast cancer Occult blood in stools Procedures CT CHEST W IVCON DIAGNOSTIC COMPUTED TOMOGRAPHY THORAX W/CONTRAST Cassidy Arreola APRN.[facility] [address] [place] [address] [place] [address] Referral ID Status Reason Start Date Expiration Date Visits Requested Visits Authorized [id number] Authorized Auto-Generat ed Referral 03/25/2025 1 1 Specialty Diagnoses / Procedures Referred By Contac t Referred To Contact CT IMAGING Diagnoses Iron deficiency anemia due to chronic blood loss Bilateral hip pain Generalized abdominal pain Abdominal bloating Personal history of breast cancer Occult blood in stools Procedures CT ABD/PEL W IVCON CT ABD & PELVIS W/CONTRAST Cassidy Arreola APRN.[facility] [address] [place] [address] [place] [address] Referral ID Status Reason Start Date Expiration Date Visits Requested Visits Authorized [id number] Authorized Auto-Generat ed Referral 4 03/25/2025 1 1 Specialty Diagnoses / Procedures Referred By Contac t Referred To Contact XR IMAGING Diagnoses Bilateral hip pain Procedures XR HIP BILATERAL 5V PEL/AP/LAT EACH HIP RADEX HIPS BILATERAL WITH PELVIS MINIMUM 5 VIEWS Cassidy Arreola APRN.[facility] [address] [place] [address] [place] [address] Referral ID Status Reason Start Date Expiration Date Visits Requested Visits Authorized [id number] New Request Auto-Generat ed Referral 4 03/25/2025 [...] section and content) DATE CREATED AUTHOR 10/21/2019 [facility] DATE CREATED AUTHOR AUTHOR'S ORGANIZ ATION 08/28/2021 [facility] DATE CREATED AUTHOR AUTHOR'S ORGANIZ ATION 01/07/2022 [facility] DATE CREATED AUTHOR AUTHOR'S ORGANIZ ATION 09/08/2024 [facility] DATE CREATED AUTHOR AUTHOR'S ORGANIZ ATION 09/14/2024 [facility] Source Comments (unrecognize d section and content) In the event this informatio n is protected by the Federal Confidentiality of Alcohol and Drug Abuse Patient Records regulations: The Federal rules restrict any use of the information to criminally investigate or prosecute any alcohol or drug abuse patient.[facility] Center[facility] the event this information is protected by the Federal Confidentiality of Alcohol and Drug Abuse Patient Records regulations: The Federal rules restrict any use of the information to criminally investigate or prosecute any alcohol or drug abuse patient.[facility] CenterIn the event this information is protected by the Federal Confidentiality of Alcohol and Drug Abuse Patient Records regulations: The Federal rules restrict any use of the information to criminally investigate or prosecute any alcohol or drug abuse patient.[facility] CenterIn the event this information is protected by the Federal Confidentiality of Alcohol and Drug Abuse Patient Records regulations: The Federal rules restrict any use of the information to criminally investigate or prosecute any alcohol or drug abuse patient.[facility] CenterIn the event this information is protected by the Federal Confidentiality of Alcohol and Drug Abuse Patient Records regulations: The Federal rules restrict any use of the information to criminally investigate or prosecute any alcohol or drug abuse patient.[facility] CenterIn the event this information is protected by the Federal Confidentiality of Alcohol and Drug Abuse Patient Records regulations: The Federal rules restrict any use of the information to criminally investigate or prosecute any alcohol or drug abuse patient.[facility] CenterIn the event this information is protected by the Federal Confidentiality of Alcohol and Drug Abuse Patient Records regulations: The Federal rules restrict any use of the information to criminally investigate or prosecute any alcohol or drug abuse patient.[facility] CenterIn the event this information is protected by the Federal Confidentiality of Alcohol and Drug Abuse Patient Records regulations: The Federal rules restrict any use of the information to criminally investigate or prosecute any alcohol or drug abuse patient.[facility] CenterIn the event this information is protected by the Federal Confidentiality of Alcohol and Drug Abuse Patient Records regulations: The Federal rules restrict any use of the information to criminally investigate or prosecute any alcohol or drug abuse patient.[facility] CenterIn the event this information is protected by the Federal Confidentiality of Alcohol and Drug Abuse Patient Records regulations: The Federal rules restrict any use of the information to criminally investigate or prosecute any alcohol or drug abuse patient.[facility] CenterIn the event this information is protected by the Federal Confidentiality of Alcohol and Drug Abuse Patient Records regulations: The Federal rules restrict any use of the information to criminally investigate or prosecute any alcohol or drug abuse patient.[facility] CenterIn the event this information is protected by the Federal Confidentiality of Alcohol and Drug Abuse Patient Records regulations: The Federal rules restrict any use of the information to criminally investigate or prosecute any alcohol or drug abuse patient.[facility] CenterIn the event this information is protected by the Federal Confidentiality of Alcohol and Drug Abuse Patient Records regulations: The Federal rules restrict any use of the information to criminally investigate or prosecute any alcohol or drug abuse patient.[facility] CenterIn the event this information is protected by the Federal Confidentiality of Alcohol and Drug Abuse Patient Records regulations: The Federal rules restrict any use of the information to criminally investigate or prosecute any alcohol or drug abuse patient.[facility] CenterIn the event this information is protected by the Federal Confidentiality of Alcohol and Drug Abuse Patient Records regulations: The Federal rules restrict any use of the information to criminally investigate or prosecute any alcohol or drug abuse patient.[facility] CenterIn the event this information is protected by the Federal Confidentiality of Alcohol and Drug Abuse Patient Records regulations: The Federal rules restrict any use of the information to criminally investigate or prosecute any alcohol or drug abuse patient.[facility] CenterIn the event this information is protected by the Federal Confidentiality of Alcohol and Drug Abuse Patient Records regulations: The Federal rules restrict any use of the information to criminally investigate or prosecute any alcohol or drug abuse patient.[facility] CenterIn the event this information is protected by the Federal Confidentiality of Alcohol and Drug Abuse Patient Records regulations: The Federal rules restrict any use of the information to criminally investigate or prosecute any alcohol or drug abuse patient.[facility] CenterIn the event this information is protected by the Federal Confidentiality of Alcohol and Drug Abuse Patient Records regulations: The Federal rules restrict any use of the information to criminally investigate or prosecute any alcohol or drug abuse patient.[facility] CenterIn the event this information is protected by the Federal Confidentiality of Alcohol and Drug Abuse Patient Records regulations: The Federal rules restrict any use of the information to criminally investigate or prosecute any alcohol or drug abuse patient.[facility] CenterIn the event this information is protected by the Federal Confidentiality of Alcohol and Drug Abuse Patient Records regulations: The Federal rules restrict any use of the information to criminally investigate or prosecute any alcohol or drug abuse patient.[facility] CenterIn the event this information is protected by the Federal Confidentiality of Alcohol and Drug Abuse Patient Records regulations: The Federal rules restrict any use of the information to criminally investigate or prosecute any alcohol or drug abuse patient.[facility] CenterIn the event this information is protected by the Federal Confidentiality of Alcohol and Drug Abuse Patient Records regulations: The Federal rules restrict any use of the information to criminally investigate or prosecute any alcohol or drug abuse patient.[facility] CenterIn the event this information is protected by the Federal Confidentiality of Alcohol and Drug Abuse Patient Records regulations: The Federal rules restrict any use of the information to criminally investigate or prosecute any alcohol or drug abuse patient.[facility] CenterIn the event this information is protected by the Federal Confidentiality of Alcohol and Drug Abuse Patient Records regulations: The Federal rules restrict any use of the information to criminally investigate or prosecute any alcohol or drug abuse patient.[facility] CenterIn the event this information is protected by the Federal Confidentiality of Alcohol and Drug Abuse Patient Records regulations: The Federal rules restrict any use of the information to criminally investigate or prosecute any alcohol or drug abuse patient.[facility] CenterIn the event this information is protected by the Federal Confidentiality of Alcohol and Drug Abuse Patient Records regulations: The Federal rules restrict any use of the information to criminally investigate or prosecute any alcohol or drug abuse patient.[facility] CenterIn the event this information is protected by the Federal Confidentiality of Alcohol and Drug Abuse Patient Records regulations: The Federal rules restrict any use of the information to criminally investigate or prosecute any alcohol or drug abuse patient.[facility] CenterIn the event this information is protected by the Federal Confidentiality of Alcohol and Drug Abuse Patient Records regulations: The Federal rules restrict any use of the information to criminally investigate or prosecute any alcohol or drug abuse patient.[facility] CenterIn the event this information is protected by the Federal Confidentiality of Alcohol and Drug Abuse Patient Records regulations: The Federal rules restrict any use of the information to criminally investigate or prosecute any alcohol or drug abuse patient.[facility] CenterIn the event this information is protected by the Federal Confidentiality of Alcohol and Drug Abuse Patient Records regulations: The Federal rules restrict any use of the information to criminally investigate or prosecute any alcohol or drug abuse patient.[facility] CenterIn the event this information is protected by the Federal Confidentiality of Alcohol and Drug Abuse Patient Records regulations: The Federal rules restrict any use of the information to criminally investigate or prosecute any alcohol or drug abuse patient.[facility] CenterIn the event this information is protected by the Federal Confidentiality of Alcohol and Drug Abuse Patient Records regulations: The Federal rules restrict any use of the information to criminally investigate or prosecute any alcohol or drug abuse patient.[facility] CenterIn the event this information is protected by the Federal Confidentiality of Alcohol and Drug Abuse Patient Records regulations: The Federal rules restrict any use of the information to criminally investigate or prosecute any alcohol or drug abuse patient.[facility] CenterIn the event this information is protected by the Federal Confidentiality of Alcohol and Drug Abuse Patient Records regulations: The Federal rules restrict any use of the information to criminally investigate or prosecute any alcohol or drug abuse patient.[facility] CenterIn the event this information is protected by the Federal Confidentiality of Alcohol and Drug Abuse Patient Records regulations: The Federal rules restrict any use of the information to criminally investigate or prosecute any alcohol or drug abuse patient.[facility] CenterIn the event this information is protected by the Federal Confidentiality of Alcohol and Drug Abuse Patient Records regulations: The Federal rules restrict any use of the information to criminally investigate or prosecute any alcohol or drug abuse patient.[facility] CenterIn the event this information is protected by the Federal Confidentiality of Alcohol and Drug Abuse Patient Records regulations: The Federal rules restrict any use of the information to criminally investigate or prosecute any alcohol or drug abuse patient.[facility] CenterIn the event this information is protected by the Federal Confidentiality of Alcohol and Drug Abuse Patient Records regulations: The Federal rules restrict any use of the information to criminally investigate or prosecute any alcohol or drug abuse patient.[facility] CenterIn the event this information is protected by the Federal Confidentiality of Alcohol and Drug Abuse Patient Records regulations: The Federal rules restrict any use of the information to criminally investigate or prosecute any alcohol or drug abuse patient.[facility] CenterIn the event this information is protected by the Federal Confidentiality of Alcohol and Drug Abuse Patient Records regulations: The Federal rules restrict any use of the information to criminally investigate or prosecute any alcohol or drug abuse patient.[facility] CenterIn the event this information is protected by the Federal Confidentiality of Alcohol and Drug Abuse Patient Records regulations: The Federal rules restrict any use of the information to criminally investigate or prosecute any alcohol or drug abuse patient.[facility] CenterIn the event this information is protected by the Federal Confidentiality of Alcohol and Drug Abuse Patient Records regulations: The Federal rules restrict any use of the information to criminally investigate or prosecute any alcohol or drug abuse patient.[facility] CenterIn the event this information is protected by the Federal Confidentiality of Alcohol and Drug Abuse Patient Records regulations: The Federal rules restrict any use of the information to criminally investigate or prosecute any alcohol or drug abuse patient.[facility] CenterIn the event this information is protected by the Federal Confidentiality of Alcohol and Drug Abuse Patient Records regulations: The Federal rules restrict any use of the information to criminally investigate or prosecute any alcohol or drug abuse patient.[facility] CenterIn the event this information is protected by the Federal Confidentiality of Alcohol and Drug Abuse Patient Records regulations: The Federal rules restrict any use of the information to criminally investigate or prosecute any alcohol or drug abuse patient.[facility] CenterIn the event this information is protected by the Federal Confidentiality of Alcohol and Drug Abuse Patient Records regulations: The Federal rules restrict any use of the information to criminally investigate or prosecute any alcohol or drug abuse patient.[facility] CenterIn the event this information is protected by the Federal Confidentiality of Alcohol and Drug Abuse Patient Records regulations: The Federal rules restrict any use of the information to criminally investigate or prosecute any alcohol or drug abuse patient.[facility] CenterIn the event this information is protected by the Federal Confidentiality of Alcohol and Drug Abuse Patient Records regulations: The Federal rules restrict any use of the information to criminally investigate or prosecute any alcohol or drug abuse patient.[facility] CenterIn the event this information is protected by the Federal Confidentiality of Alcohol and Drug Abuse Patient Records regulations: The Federal rules restrict any use of the information to criminally investigate or prosecute any alcohol or drug abuse patient.[facility] CenterIn the event this information is protected by the Federal Confidentiality of Alcohol and Drug Abuse Patient Records regulations: The Federal rules restrict any use of the information to criminally investigate or prosecute any alcohol or drug abuse patient.[facility] CenterIn the event this information is protected by the Federal Confidentiality of Alcohol and Drug Abuse Patient Records regulations: The Federal rules restrict any use of the information to criminally investigate or prosecute any alcohol or drug abuse patient.[facility] CenterIn the event this information is protected by the Federal Confidentiality of Alcohol and Drug Abuse Patient Records regulations: The Federal rules restrict any use of the information to criminally investigate or prosecute any alcohol or drug abuse patient.[facility] CenterIn the event this information is protected by the Federal Confidentiality of Alcohol and Drug Abuse Patient Records regulations: The Federal rules restrict any use of the information to criminally investigate or prosecute any alcohol or drug abuse patient.[facility] CenterIn the event this information is protected by the Federal Confidentiality of Alcohol and Drug Abuse Patient Records regulations: The Federal rules restrict any use of the information to criminally investigate or prosecute any alcohol or drug abuse patient.[facility] CenterIn the event this information is protected by the Federal Confidentiality of Alcohol and Drug Abuse Patient Records regulations: The Federal rules restrict any use of the information to criminally investigate or prosecute any alcohol or drug abuse patient.[facility] CenterIn the event this information is protected by the Federal Confidentiality of Alcohol and Drug Abuse Patient Records regulations: The Federal rules restrict any use of the information to criminally investigate or prosecute any alcohol or drug abuse patient.[facility] CenterIn the event this information is protected by the Federal Confidentiality of Alcohol and Drug Abuse Patient Records regulations: The Federal rules restrict any use of the information to criminally investigate or prosecute any alcohol or drug abuse patient.[facility] CenterIn the event this information is protected by the Federal Confidentiality of Alcohol and Drug Abuse Patient Records regulations: The Federal rules restrict any use of the information to criminally investigate or prosecute any alcohol or drug abuse patient.[facility] CenterIn the event this information is protected by the Federal Confidentiality of Alcohol and Drug Abuse Patient Records regulations: The Federal rules restrict any use of the information to criminally investigate or prosecute any alcohol or drug abuse patient.[facility] CenterIn the event this information is protected by the Federal Confidentiality of Alcohol and Drug Abuse Patient Records regulations: The Federal rules restrict any use of the information to criminally investigate or prosecute any alcohol or drug abuse patient.[facility] CenterIn the event this information is protected by the Federal Confidentiality of Alcohol and Drug Abuse Patient Records regulations: The Federal rules restrict any use of the information to criminally investigate or prosecute any alcohol or drug abuse patient.[facility] CenterIn the event this information is protected by the Federal Confidentiality of Alcohol and Drug Abuse Patient Records regulations: The Federal rules restrict any use of the information to criminally investigate or prosecute any alcohol or drug abuse patient.[facility] CenterIn the event this information is protected by the Federal Confidentiality of Alcohol and Drug Abuse Patient Records regulations: The Federal rules restrict any use of the information to criminally investigate or prosecute any alcohol or drug abuse patient.[facility] CenterIn the event this information is protected by the Federal Confidentiality of Alcohol and Drug Abuse Patient Records regulations: The Federal rules restrict any use of the information to criminally investigate or prosecute any alcohol or drug abuse patient.[facility] CenterIn the event this information is protected by the Federal Confidentiality of Alcohol and Drug Abuse Patient Records regulations: The Federal rules restrict any use of the information to criminally investigate or prosecute any alcohol or drug abuse patient.[facility] CenterIn the event this information is protected by the Federal Confidentiality of Alcohol and Drug Abuse Patient Records regulations: The Federal rules restrict any use of the information to criminally investigate or prosecute any alcohol or drug abuse patient.[facility] CenterIn the event this information is protected by the Federal Confidentiality of Alcohol and Drug Abuse Patient Records regulations: The Federal rules restrict any use of the information to criminally investigate or prosecute any alcohol or drug abuse patient.[facility] CenterIn the event this information is protected by the Federal Confidentiality of Alcohol and Drug Abuse Patient Records regulations: The Federal rules restrict any use of the information to criminally investigate or prosecute any alcohol or drug abuse patient.[facility] CenterIn the event this information is protected by the Federal Confidentiality of Alcohol and Drug Abuse Patient Records regulations: The Federal rules restrict any use of the information to criminally investigate or prosecute any alcohol or drug abuse patient.[facility] CenterIn the event this information is protected by the Federal Confidentiality of Alcohol and Drug Abuse Patient Records regulations: The Federal rules restrict any use of the information to criminally investigate or prosecute any alcohol or drug abuse patient.[facility] CenterIn the event this information is protected by the Federal Confidentiality of Alcohol and Drug Abuse Patient Records regulations: The Federal rules restrict any use of the information to criminally investigate or prosecute any alcohol or drug abuse patient.[facility] CenterIn the event this information is protected by the Federal Confidentiality of Alcohol and Drug Abuse Patient Records regulations: The Federal rules restrict any use of the information to criminally investigate or prosecute any alcohol or drug abuse patient.[facility] CenterIn the event this information is protected by the Federal Confidentiality of Alcohol and Drug Abuse Patient Records regulations: The Federal rules restrict any use of the information to criminally investigate or prosecute any alcohol or drug abuse patient.[facility] CenterIn the event this information is protected by the Federal Confidentiality of Alcohol and Drug Abuse Patient Records regulations: The Federal rules restrict any use of the information to criminally investigate or prosecute any alcohol or drug abuse patient.[facility] CenterIn the event this information is protected by the Federal Confidentiality of Alcohol and Drug Abuse Patient Records regulations: The Federal rules restrict any use of the information to criminally investigate or prosecute any alcohol or drug abuse patient.[facility] CenterIn the event this information is protected by the Federal Confidentiality of Alcohol and Drug Abuse Patient Records regulations: The Federal rules restrict any use of the information to criminally investigate or prosecute any alcohol or drug abuse patient.[facility] CenterIn the event this information is protected by the Federal Confidentiality of Alcohol and Drug Abuse Patient Records regulations: The Federal rules restrict any use of the information to criminally investigate or prosecute any alcohol or drug abuse patient.[facility] CenterIn the event this information is protected by the Federal Confidentiality of Alcohol and Drug Abuse Patient Records regulations: The Federal rules restrict any use of the information to criminally investigate or prosecute any alcohol or drug abuse patient.[facility] CenterIn the event this information is protected by the Federal Confidentiality of Alcohol and Drug Abuse Patient Records regulations: The Federal rules restrict any use of the information to criminally investigate or prosecute any alcohol or drug abuse patient.[facility] CenterIn the event this information is protected by the Federal Confidentiality of Alcohol and Drug Abuse Patient Records regulations: The Federal rules restrict any use of the information to criminally investigate or prosecute any alcohol or drug abuse patient.[facility] CenterIn the event this information is protected by the Federal Confidentiality of Alcohol and Drug Abuse Patient Records regulations: The Federal rules restrict any use of the information to criminally investigate or prosecute any alcohol or drug abuse patient.[facility] CenterIn the event this information is protected by the Federal Confidentiality of Alcohol and Drug Abuse Patient Records regulations: The Federal rules restrict any use of the information to criminally investigate or prosecute any alcohol or drug abuse patient.[facility] CenterIn the event this information is protected by the Federal Confidentiality of Alcohol and Drug Abuse Patient Records regulations: The Federal rules restrict any use of the information to criminally investigate or prosecute any alcohol or drug abuse patient.[facility] CenterIn the event this information is protected by the Federal Confidentiality of Alcohol and Drug Abuse Patient Records regulations: The Federal rules restrict any use of the information to criminally investigate or prosecute any alcohol or drug abuse patient.[facility] CenterIn the event this information is protected by the Federal Confidentiality of Alcohol and Drug Abuse Patient Records regulations: The Federal rules restrict any use of the information to criminally investigate or prosecute any alcohol or drug abuse patient.[facility] CenterIn the event this information is protected by the Federal Confidentiality of Alcohol and Drug Abuse Patient Records regulations: The Federal rules restrict any use of the information to criminally investigate or prosecute any alcohol or drug abuse patient.[facility] CenterIn the event this information is protected by the Federal Confidentiality of Alcohol and Drug Abuse Patient Records regulations: The Federal rules restrict any use of the information to criminally investigate or prosecute any alcohol or drug abuse patient.[facility] CenterIn the event this information is protected by the Federal Confidentiality of Alcohol and Drug Abuse Patient Records regulations: The Federal rules restrict any use of the information to criminally investigate or prosecute any alcohol or drug abuse patient.[facility] CenterIn the event this information is protected by the Federal Confidentiality of Alcohol and Drug Abuse Patient Records regulations: The Federal rules restrict any use of the information to criminally investigate or prosecute any alcohol or drug abuse patient.[facility] CenterIn the event this information is protected by the Federal Confidentiality of Alcohol and Drug Abuse Patient Records regulations: The Federal rules restrict any use of the information to criminally investigate or prosecute any alcohol or drug abuse patient.[facility] CenterIn the event this information is protected by the Federal Confidentiality of Alcohol and Drug Abuse Patient Records regulations: The Federal rules restrict any use of the information to criminally investigate or prosecute any alcohol or drug abuse patient.[facility] CenterIn the event this information is protected by the Federal Confidentiality of Alcohol and Drug Abuse Patient Records regulations: The Federal rules restrict any use of the information to criminally investigate or prosecute any alcohol or drug abuse patient.[facility] CenterIn the event this information is protected by the Federal Confidentiality of Alcohol and Drug Abuse Patient Records regulations: The Federal rules restrict any use of the information to criminally investigate or prosecute any alcohol or drug abuse patient.[facility] CenterIn the event this information is protected by the Federal Confidentiality of Alcohol and Drug Abuse Patient Records regulations: The Federal rules restrict any use of the information to criminally investigate or prosecute any alcohol or drug abuse patient.[facility] CenterIn the event this information is protected by the Federal Confidentiality of Alcohol and Drug Abuse Patient Records regulations: The Federal rules restrict any use of the information to criminally investigate or prosecute any alcohol or drug abuse patient.[facility] CenterIn the event this information is protected by the Federal Confidentiality of Alcohol and Drug Abuse Patient Records regulations: The Federal rules restrict any use of the information to criminally investigate or prosecute any alcohol or drug abuse patient.[facility] CenterIn the event this information is protected by the Federal Confidentiality of Alcohol and Drug Abuse Patient Records regulations: The Federal rules restrict any use of the information to criminally investigate or prosecute any alcohol or drug abuse patient.[facility] CenterIn the event this information is protected by the Federal Confidentiality of Alcohol and Drug Abuse Patient Records regulations: The Federal rules restrict any use of the information to criminally investigate or prosecute any alcohol or drug abuse patient.[facility] CenterIn the event this information is protected by the Federal Confidentiality of Alcohol and Drug Abuse Patient Records regulations: The Federal rules restrict any use of the information to criminally investigate or prosecute any alcohol or drug abuse patient.[facility] CenterIn the event this information is protected by the Federal Confidentiality of Alcohol and Drug Abuse Patient Records regulations: The Federal rules restrict any use of the information to criminally investigate or prosecute any alcohol or drug abuse patient.[facility] CenterIn the event this information is protected by the Federal Confidentiality of Alcohol and Drug Abuse Patient Records regulations: The Federal rules restrict any use of the information to criminally investigate or prosecute any alcohol or drug abuse patient.[facility] CenterIn the event this information is protected by the Federal Confidentiality of Alcohol and Drug Abuse Patient Records regulations: The Federal rules restrict any use of the information to criminally investigate or prosecute any alcohol or drug abuse patient.[facility] CenterIn the event this information is protected by the Federal Confidentiality of Alcohol and Drug Abuse Patient Records regulations: The Federal rules restrict any use of the information to criminally investigate or prosecute any alcohol or drug abuse patient.[facility] CenterIn the event this information is protected by the Federal Confidentiality of Alcohol and Drug Abuse Patient Records regulations: The Federal rules restrict any use of the information to criminally investigate or prosecute any alcohol or drug abuse patient.[facility] CenterIn the event this information is protected by the Federal Confidentiality of Alcohol and Drug Abuse Patient Records regulations: The Federal rules restrict any use of the information to criminally investigate or prosecute any alcohol or drug abuse patient.[facility] CenterIn the event this information is protected by the Federal Confidentiality of Alcohol and Drug Abuse Patient Records regulations: The Federal rules restrict any use of the information to criminally investigate or prosecute any alcohol or drug abuse patient.[facility] CenterIn the event this information is protected by the Federal Confidentiality of Alcohol and Drug Abuse Patient Records regulations: The Federal rules restrict any use of the information to criminally investigate or prosecute any alcohol or drug abuse patient.[facility] CenterIn the event this information is protected by the Federal Confidentiality of Alcohol and Drug Abuse Patient Records regulations: The Federal rules restrict any use of the information to criminally investigate or prosecute any alcohol or drug abuse patient.[facility] CenterIn the event this information is protected by the Federal Confidentiality of Alcohol and Drug Abuse Patient Records regulations: The Federal rules restrict any use of the information to criminally investigate or prosecute any alcohol or drug abuse patient.[facility] CenterIn the event this information is protected by the Federal Confidentiality of Alcohol and Drug Abuse Patient Records regulations: The Federal rules restrict any use of the information to criminally investigate or prosecute any alcohol or drug abuse patient.[facility] CenterIn the event this information is protected by the Federal Confidentiality of Alcohol and Drug Abuse Patient Records regulations: The Federal rules restrict any use of the information to criminally investigate or prosecute any alcohol or drug abuse patient.[facility] CenterIn the event this information is protected by the Federal Confidentiality of Alcohol and Drug Abuse Patient Records regulations: The Federal rules restrict any use of the information to criminally investigate or prosecute any alcohol or drug abuse patient.[facility] CenterIn the event this information is protected by the Federal Confidentiality of Alcohol and Drug Abuse Patient Records regulations: The Federal rules restrict any use of the information to criminally investigate or prosecute any alcohol or drug abuse patient.[facility] CenterIn the event this information is protected by the Federal Confidentiality of Alcohol and Drug Abuse Patient Records regulations: The Federal rules restrict any use of the information to criminally investigate or prosecute any alcohol or drug abuse patient.[facility] CenterIn the event this information is protected by the Federal Confidentiality of Alcohol and Drug Abuse Patient Records regulations: The Federal rules restrict any use of the information to criminally investigate or prosecute any alcohol or drug abuse patient.[facility] CenterIn the event this information is protected by the Federal Confidentiality of Alcohol and Drug Abuse Patient Records regulations: The Federal rules restrict any use of the information to criminally investigate or prosecute any alcohol or drug abuse patient.[facility] CenterIn the event this information is protected by the Federal Confidentiality of Alcohol and Drug Abuse Patient Records regulations: The Federal rules restrict any use of the information to criminally investigate or prosecute any alcohol or drug abuse patient.[facility] CenterIn the event this information is protected by the Federal Confidentiality of Alcohol and Drug Abuse Patient Records regulations: The Federal rules restrict any use of the information to criminally investigate or prosecute any alcohol or drug abuse patient.[facility] CenterIn the event this information is protected by the Federal Confidentiality of Alcohol and Drug Abuse Patient Records regulations: The Federal rules restrict any use of the information to criminally investigate or prosecute any alcohol or drug abuse patient.[facility] CenterIn the event this information is protected by the Federal Confidentiality of Alcohol and Drug Abuse Patient Records regulations: The Federal rules restrict any use of the information to criminally investigate or prosecute any alcohol or drug abuse patient.[facility] CenterIn the event this information is protected by the Federal Confidentiality of Alcohol and Drug Abuse Patient Records regulations: The Federal rules restrict any use of the information to criminally investigate or prosecute any alcohol or drug abuse patient.[facility] CenterIn the event this information is protected by the Federal Confidentiality of Alcohol and Drug Abuse Patient Records regulations: The Federal rules restrict any use of the information to criminally investigate or prosecute any alcohol or drug abuse patient.[facility] CenterIn the event this information is protected by the Federal Confidentiality of Alcohol and Drug Abuse Patient Records regulations: The Federal rules restrict any use of the information to criminally investigate or prosecute any alcohol or drug abuse patient.[facility] CenterIn the event this information is protected by the Federal Confidentiality of Alcohol and Drug Abuse Patient Records regulations: The Federal rules restrict any use of the information to criminally investigate or prosecute any alcohol or drug abuse patient.[facility] CenterIn the event this information is protected by the Federal Confidentiality of Alcohol and Drug Abuse Patient Records regulations: The Federal rules restrict any use of the information to criminally investigate or prosecute any alcohol or drug abuse patient.[facility] CenterIn the event this information is protected by the Federal Confidentiality of Alcohol and Drug Abuse Patient Records regulations: The Federal rules restrict any use of the information to criminally investigate or prosecute any alcohol or drug abuse patient.[facility] CenterIn the event this information is protected by the Federal Confidentiality of Alcohol and Drug Abuse Patient Records regulations: The Federal rules restrict any use of the information to criminally investigate or prosecute any alcohol or drug abuse patient.[facility] CenterIn the event this information is protected by the Federal Confidentiality of Alcohol and Drug Abuse Patient Records regulations: The Federal rules restrict any use of the information to criminally investigate or prosecute any alcohol or drug abuse patient.[facility] CenterIn the event this information is protected by the Federal Confidentiality of Alcohol and Drug Abuse Patient Records regulations: The Federal rules restrict any use of the information to criminally investigate or prosecute any alcohol or drug abuse patient.[facility] CenterIn the event this information is protected by the Federal Confidentiality of Alcohol and Drug Abuse Patient Records regulations: The Federal rules restrict any use of the information to criminally investigate or prosecute any alcohol or drug abuse patient.[facility] CenterIn the event this information is protected by the Federal Confidentiality of Alcohol and Drug Abuse Patient Records regulations: The Federal rules restrict any use of the information to criminally investigate or prosecute any alcohol or drug abuse patient.[facility] CenterIn the event this information is protected by the Federal Confidentiality of Alcohol and Drug Abuse Patient Records regulations: The Federal rules restrict any use of the information to criminally investigate or prosecute any alcohol or drug abuse patient.[facility] CenterIn the event this information is protected by the Federal Confidentiality of Alcohol and Drug Abuse Patient Records regulations: The Federal rules restrict any use of the information to criminally investigate or prosecute any alcohol or drug abuse patient.[facility] CenterIn the event this information is protected by the Federal Confidentiality of Alcohol and Drug Abuse Patient Records regulations: The Federal rules restrict any use of the information to criminally investigate or prosecute any alcohol or drug abuse patient.[facility] CenterIn the event this information is protected by the Federal Confidentiality of Alcohol and Drug Abuse Patient Records regulations: The Federal rules restrict any use of the information to criminally investigate or prosecute any alcohol or drug abuse patient.[facility] CenterIn the event this information is protected by the Federal Confidentiality of Alcohol and Drug Abuse Patient Records regulations: The Federal rules restrict any use of the information to criminally investigate or prosecute any alcohol or drug abuse patient.[facility] CenterIn the event this information is protected by the Federal Confidentiality of Alcohol and Drug Abuse Patient Records regulations: The Federal rules restrict any use of the information to criminally investigate or prosecute any alcohol or drug abuse patient.[facility] CenterIn the event this information is protected by the Federal Confidentiality of Alcohol and Drug Abuse Patient Records regulations: The Federal rules restrict any use of the information to criminally investigate or prosecute any alcohol or drug abuse patient.[facility] CenterIn the event this information is protected by the Federal Confidentiality of Alcohol and Drug Abuse Patient Records regulations: The Federal rules restrict any use of the information to criminally investigate or prosecute any alcohol or drug abuse patient.[facility] CenterIn the event this information is protected by the Federal Confidentiality of Alcohol and Drug Abuse Patient Records regulations: The Federal rules restrict any use of the information to criminally investigate or prosecute any alcohol or drug abuse patient.[facility] CenterIn the event this information is protected by the Federal Confidentiality of Alcohol and Drug Abuse Patient Records regulations: The Federal rules restrict any use of the information to criminally investigate or prosecute any alcohol or drug abuse patient.[facility] CenterIn the event this information is protected by the Federal Confidentiality of Alcohol and Drug Abuse Patient Records regulations: The Federal rules restrict any use of the information to criminally investigate or prosecute any alcohol or drug abuse patient.[facility] Reason for Visit (unrecogniz ed section and [...] incontinence Procedures CONSULT TO URO GYNECOLOGY OFFICE/OUTPATIENT [facility] 60-74 MINUTES Jayde Hebert MD [address] [place] [address] Referral ID Status Reason Start Date Expiration Date V isits Requested Visits Authorized [id number] Closed PCP Requested Referral Auto-Generated Referral 08/30/2021 11/28/2021 1 1 Reason Comments Anticoagulation Telephone Fu home INR Reason Comments Consult Specialty Diagnoses / Procedures Referred By Contac t Referred To Contact Infectious Diseases Diagnoses Recurrent UTI History of ESBL E. coli infection Procedures CONSULT TO INFECTIOUS DISEASES OFFICE/OUTPATIENT [facility] 60-74 MINUTES Basilia Hernández MD [address] [address] Referral ID Status Reason Start Date Expiration Date V isits Requested Visits Authorized [id number] Closed PCP Requested Referral 09/26/2021 09/26/2022 1 1 Reason Onset Date Comments Anticoagulation Telephone Fu 10/15/2021 Agustín e INR Result Reason Comments High INR/lab order Reason Comments Release Of Medical Records Reason Comments Patient Question Reason Comments PAC TRANSFER OF CARE Reason Comments Blood Draw (CVAD) Reason Onset Date Comments Blood Tester - Other 12/25/2021 Reason Comments Recurrent UTI Reason Comments Established Patient Last seen 11/09/20 S/P Left ring trigger finger release (09/14 Reason Comments Returning Patient's Call Reason Comments Orders Appointment Reason Comments Results CBC Reason Comments Non-Chemotherapy Treatment Specialty Diagnoses / Procedures Referred By Contac t Referred To Contact Diagnoses 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 Sal Bonilla DO [address] [place] [address] [facility] [address] [place] [address] Referral ID Status Reason Start Date Expiration Date V isits Requested Visits Authorized [id number] Authorized 03/24/2022 06/22/2022 99 99 Reason Comments Blood Tester - Other Symptoms Reason Comments Follow Up [...] By Contac t Referred To Contact [facility] Diagnoses Rheumatoid arthritis involving multiple sites with positive rheumatoid factor (HCC) Procedures INJECTIONTYREL Elisabeth, MD [address] [address] Infusion [facility] [address] [place] [address] Referral ID Status Reason Start Date Expiration Date V isits Requested Visits Authorized [id number] Authorized 07/16/2023 03/16/2024 99 99 Specialty Diagnoses / Procedures Referred By Contac t Referred To Contact [facility] Diagnoses Rheumatoid arthritis involving multiple sites with positive rheumatoid factor (HCC) Procedures INJECTION, RENFLEXIS Thalia Monterroso MD [address] [place] [address] [facility] [address] [place] [address] Reason Comments Joint Pain Specialty Diagnoses / Procedures Referred By Contac t Referred To Contact Diagnoses Senile osteoporosis Thalia Monterroso MD [facility] [place] [address] [facility] Infusion [address] [address] Referral ID Status Reason Start Date Expiration Date V isits Requested Visits Authorized [id number] Authorized 11/14/2023 02/12/2024 99 99 Reason Comments Established Patient Specialty Diagnoses / Procedures Referred By Contac t Referred To Contact Diagnoses 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 Cassidy Arreola APRN.[facility] [address] [place] [address] [facility] [address] [place] [address] Referral ID Status Reason Start Date Expiration Date V isits Requested Visits Authorized [id number] Authorized 02/24/2024 05/24/2024 99 99 Specialty Diagnoses / Procedures Referred By Contac t Referred To Contact Diagnoses 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 Cassidy Arreola APRN.[facility] [address] [place] [address] [facility] [address] [place] [address] Specialty Diagnoses / Procedures Referred By Contac t Referred To Contact CT IMAGING Diagnoses Iron deficiency anemia due to chronic blood loss Bilateral hip pain Generalized abdominal pain Abdominal bloating Personal history of breast cancer Occult blood in stools Procedures CT CHEST W IVCON DIAGNOSTIC COMPUTED TOMOGRAPHY THORAX W/CONTRAST Cassidy Arreola, DE ICER ELEMENT WINDER.[facility] [address] [place] [address] [place] [address] Referral ID Status Reason Start Date Expiration Date V isits Requested Visits Authorized [id number] Closed Auto-Generate d Referral 02/24/2024 03/25/2025 [address] Specialty Diagnoses / Procedures Referred By Michael mcgowan Referred To Contact CT IMAGING Diagnoses Iron deficiency anemia due to chronic blood loss Bilateral hip pain Generalized abdominal pain Abdominal bloating Personal history of breast cancer Occult blood in stools Procedures CT CHEST W IVCON DIAGNOSTIC COMPUTED TOMOGRAPHY THORAX W/CONTRAST Cassidy Arreola, DE IC[employer] ELEMENT W[employer]ER[facility] [address] [place] [address] [place] [address] Reason Comments Joint Pain Reason Comments Scheduling Care Teams (unrecognized sec tion and content) Ribbon Hand Relationship Specialty Start Date End Date Galina Iraheta MD [address] [place] [address] PCP - General Internal Medicine 01/15/16 13, Pharmacist [phone] [place] [address] Pharmacist Pharmacy 08/22/20 Ribbon Hand Relationship Specialty Start Date End Date Galina Iraheta MD [address] [place] [address] PCP - General Internal Medicine 01/15/16 13, Pharmacist [phone] [place] [address] Pharmacist Pharmacy 08/22/20 Ribbon Hand Relationship Specialty Start Date End Date Galina Iraheta MD [address] [place] [address] PCP - General Internal Medicine 01/15/16 13, Pharmacist [phone] [place] [address] Pharmacist Pharmacy 08/22/20 Ribbon Hand Relationship Specialty Start Date End Date Galina Iraheta MD [address] [place] [address] PCP - General Internal Medicine 01/15/16 13, Pharmacist [phone] [facility] [place] [address] Pharmacist Pharmacy 08/22/20 Ribbon Hand Relationship Specialty Start Date End Date Galina Iraheta MD [address] [place] [address] PCP - General Internal Medicine 01/15/16 13, Pharmacist [phone] [facility] [place] [address] Pharmacist Pharmacy 08/22/20 Ribbon Hand Relationship Specialty Start Date End Date Galina Iraheta MD [address] [place] [address] PCP - General Internal Medicine 01/15/16 13, Pharmacist [phone] [facility] [place] [address] Pharmacist Pharmacy 08/22/20 Ribbon Hand Relationship Specialty Start Date End Date Galina Iraheta MD [address] [place] [address] PCP - General Internal Medicine 01/15/16 13, Pharmacist [phone] [place] [address], [place] [address] Pharmacist Pharmacy 08/22/20 Ribbon Hand Relationship Specialty Start Date End Date Galina Iraheta MD [address] [place] [address] PCP - General Internal Medicine 01/15/16 13, Pharmacist [phone] [facility] [place] [address] Pharmacist Pharmacy 08/22/20 Ribbon Hand Relationship Specialty Start Date End Date Galina Iraheta MD [address] [place] [address] PCP - General Internal Medicine 01/15/16 13, Pharmacist [phone] [place] [address] Pharmacist Pharmacy 08/22/20 Ribbon Hand Relationship Specialty Start Date End Date Galina Iraheta MD [address] [place] [address] PCP - General Internal Medicine 01/15/16 13, Pharmacist [phone] [facility] [place] [address] Pharmacist Pharmacy 08/22/20 Ribbon Hand Relationship Specialty Start Date End Date Galina Iraheta MD [address] [place] [address] PCP - General Internal Medicine 01/15/16 13, Pharmacist [phone] [facility] [place] [address] Pharmacist Pharmacy 08/22/20 Ribbon Hand Relationship Specialty Start Date End Date Galina Iraheta MD [address] [place] [address] PCP - General Internal Medicine 01/15/16 13, Pharmacist [phone] [facility] [place] [address] Pharmacist Pharmacy 08/22/20 Ribbon Hand Relationship Specialty Start Date End Date Galina Iraheta MD [address] [place] [address] PCP - General Internal Medicine 01/15/16 13, Pharmacist [phone] [facility] [place] [address] Pharmacist Pharmacy 08/22/20 Ribbon Hand Relationship Specialty Start Date End Date Galina Iraheta MD [address] [place] [address] PCP - General Internal Medicine 01/15/16 13, Pharmacist [phone] [facility] [place] [address] Pharmacist Pharmacy 08/22/20 Ribbon Hand Relationship Specialty Start Date End Date Galina Iraheta MD [address] [place] [address] PCP - General Internal Medicine 01/15/16 13, Pharmacist [phone] [facility] [place] [address] Pharmacist Pharmacy 08/22/20 Ribbon Hand Relationship Specialty Start Date End Date Galina Iraheta MD [address] [place] [address] PCP - General Internal Medicine 01/15/16 13, Pharmacist [phone] [facility] [place] [address] Pharmacist Pharmacy 08/22/20 Ribbon Hand Relationship Specialty Start Date End Date Galina Iraheta MD [address] [place] [address] PCP - General Internal Medicine 01/15/16 13, Pharmacist [phone] [facility] [place] [address] Pharmacist Pharmacy 08/22/20 Ribbon Hand Relationship Specialty Start Date End Date Galina Iraheta MD [address] [place] [address] PCP - General Internal Medicine 01/15/16 13, Pharmacist [phone] [facility] [place] [address] Pharmacist Pharmacy 08/22/20 Ribbon Hand Relationship Specialty Start Date End Date Galina Iraheta MD [address] [place] [address] PCP - General Internal Medicine 01/15/16 13, Pharmacist [phone] [facility] [place] [address] Pharmacist Pharmacy 08/22/20 Ribbon Hand Relationship Specialty Start Date End Date Galina Iraheta MD [address] [place] [address] PCP - General Internal Medicine 01/15/16 13, Pharmacist [phone] [facility] [place] [address] Pharmacist Pharmacy 08/22/20 Ribbon Hand Relationship Specialty Start Date End Date Galina Iraheta MD [address] [place] [address] PCP - General Internal Medicine 01/15/16 13, Pharmacist [phone] [facility] [place] [address] Pharmacist Pharmacy 08/22/20 Ribbon Hand Relationship Specialty Start Date End Date Galina Iraheta MD [address] [place] [address] PCP - General Internal Medicine 01/15/16 13, Pharmacist [phone] [facility] [place] [address] Pharmacist Pharmacy 08/22/20 Ribbon Hand Relationship Specialty Start Date End Date Galina Iraheta MD [address] [place] [address] PCP - General Internal Medicine 01/15/16 13, Pharmacist [phone] [facility] [place] [address] Pharmacist Pharmacy 08/22/20 Ribbon Hand Relationship Specialty Start Date End Date Galina Iraheta MD [address] [place] [address] PCP - General Internal Medicine 01/15/16 13, Pharmacist [phone] [facility] [place] [address] Pharmacist Pharmacy 08/22/20 Ribbon Hand Relationship Specialty Start Date End Date Galina Iraheta MD [address] [place] [address] PCP - General Internal Medicine 01/15/16 13, Pharmacist [phone] [facility] [place] [address] Pharmacist Pharmacy 08/22/20 Ribbon Hand Relationship Specialty Start Date End Date Galina Iraheta MD [address] [place] [address] PCP - General Internal Medicine 01/15/16 13, Pharmacist [phone] [facility] [place] [address] Pharmacist Pharmacy 08/22/20 Ribbon Hand Relationship Specialty Start Date End Date Galina Iraheta MD [address] [place] [address] PCP - General Internal Medicine 01/15/16 13, Pharmacist [phone] [facility] [place] [address] Pharmacist Pharmacy 08/22/20 Ribbon Hand Relationship Specialty Start Date End Date Galina Iraheta MD [address] [place] [address] PCP - General Internal Medicine 01/15/16 13, Pharmacist [phone] [facility] [place] [address] Pharmacist Pharmacy 08/22/20 Ribbon Hand Relationship Specialty Start Date End Date Galina Iraheta MD [address] [place] [address] PCP - General Internal Medicine 01/15/16 13, Pharmacist [phone] [facility] [place] [address] Pharmacist Pharmacy 08/22/20 Ribbon Hand Relationship Specialty Start Date End Date Galina Iraheta MD [address] [place] [address] PCP - General Internal Medicine 01/15/16 Ribbon Hand Relationship Specialty Start Date End Date Galina Iraheta MD [address] [place] [address] PCP - General Internal Medicine 01/15/16 Ribbon Hand Relationship Specialty Start Date End Date Galina Iraheta MD [address] [place] [address] PCP - General Internal Medicine 01/15/16 Ribbon Hand Relationship Specialty Start Date End Date Galina Iraheta MD [address] [place] [address] PCP - General Internal Medicine 01/15/16 Ribbon Hand Relationship Specialty Start Date End Date Galina Iraheta MD [address] [place] [address] PCP - General Internal Medicine 01/15/16 Ribbon Hand Relationship Specialty Start Date End Date Galina Iraheta MD [address] [place] [address] PCP - General Internal Medicine 01/15/16 Ribbon Hand Relationship Specialty Start Date End Date Galina Iraheta MD [address] [place] [address] PCP - General Internal Medicine 01/15/16 Ribbon Hand Relationship Specialty Start Date End Date Galina Iraheta MD [address] [place] [address] PCP - General Internal Medicine 01/15/16 Ribbon Hand Relationship Specialty Start Date End Date Galina Iraheta MD [address] [place] [address] PCP - General Internal Medicine 01/15/16 Ribbon Hand Relationship Specialty Start Date End Date Galina Iraheta MD [address] [place] [address] PCP - General Internal Medicine 01/15/16 Sal Bonilla, DO [address] [place] [address] Hematology/Oncology 03/22/22 Ribbon Hand Relationship Specialty Start Date End Date Galina Iraheta MD [address] [place] [address] PCP - General Internal Medicine 01/15/16 Sal Bonilla, DO [address] [place] [address] Hematology/Oncology 03/22/22 Ribbon Hand Relationship Specialty Start Date End Date Galina Iraheta MD [address] [facility], [place] [address] PCP - General Internal Medicine 01/15/16 Sal Bonilla, [address] [facility] [place] [address] Hematology/Oncology 03/22/22 Team Status: Active Member Role Status Dates Dr. Galina Iraheta MD Family Provider Active Dr. Galina Iraheta MD Primary Care Provider Active Team Status: Inactive Member Role Status Dates Dr. Galina Iraheta MD Primary Care Provider Active Galina Horner DINING HOST, DINING HOST-C Attending Provider Active Team Status: Inactive Member [...] MD Primary Care Provider Active Galina Horner DINING HOST, DINING HOST-C Attending Provider, Referring Provider Active Team Status: Active Member Role Status Dates Dr. Galina Iraheta MD Primary Care Provider Active Reji Reyna MD Attending Provider Active Ribbon Hand Relationship Specialty Start Date End Date Galina Iraheta MD [address] [place] [address] PCP - General Internal Medicine 01/15/16 Sal Bonilla, [address] [facility] [place] [address] Hematology/Oncology 03/22/22 Ribbon Hand Relationship Specialty Start Date End Date Galina Iraheta MD [address] [place] [address] PCP - General Internal Medicine 01/15/16 Sal Bonilla, DO [address] [place] [address] Hematology/Oncology 03/22/22 Ribbon Hand Relationship Specialty Start Date End Date Galina Iraheta MD [address] [place] [address] PCP - General Internal Medicine 01/15/16 Sal Bonilla, DO [address] [place] [address] Hematology/Oncology 03/22/22 Ribbon Hand Relationship Specialty Start Date End Date Galina Iraheta MD [address] [place] [address] PCP - General Internal Medicine 01/15/16 Sal Bonilla, DO [address] [place] [address] Hematology/Oncology 03/22/22 Ribbon Hand Relationship Specialty Start Date End Date Galina Iraheta MD [address] [place] [address] PCP - General Internal Medicine 01/15/16 Sal Bonilla, DO [address] [place] [address] Hematology/Oncology 03/22/22 Ribbon Hand Relationship Specialty Start Date End Date Galina Iraheta MD [address] [place] [address] PCP - General Internal Medicine 01/15/16 Sal Bonilla, DO [address] [place] [address] Hematology/Oncology 03/22/22 Ribbon Hand Relationship Specialty Start Date End Date Galina Iraheta MD [address] [place] [address] PCP - General Internal Medicine 01/15/16 Sal Bonilla DO [address] [place] [address] Hematology/Oncology 03/22/22 Team Status: Inactive Member Role Status Dates Dr. Galina Iraheta MD Primary Care Provider Active Reji POPE MD Attending Provider Active Team Status: Inactive Member Role Status Dates Dr. Galina Iraheta MD Primary Care Provider Active Alejo POPE MD Attending Provider, Referring Pr katieer Active Team Status: Inactive Member Role Status Dates Dr. Galina Iraheta MD Primary Care Provider Active Alejo POPE MD Attending Provider Active Team Status: Active Member Role Status Dates Dr. Galina Iraheta MD Primary Care Provider Active Reji POPE MD Attending Provider Active Ribbon Hand Relationship Specialty Start Date End Date Galina Iraheta MD [address] [place] [address] PCP - General Internal Medicine 01/15/16 Sal Bonilla DO [address] [place] [address] Hematology/Oncology 03/22/22 Ribbon Hand Relationship Specialty Start Date End Date Galina Iraheta MD [address] [place] [address] PCP - General Internal Medicine 01/15/16 Sal Bonilla DO [address] [place] [address] Hematology/Oncology 03/22/22 Ribbon Hand Relationship Specialty Start Date End Date Galina Iraheta MD [address] [place] [address] PCP - General Internal Medicine 01/15/16 Sal Bonilla DO [address] [place] [address] Hematology/Oncology 03/22/22 Ribbon Hand Relationship Specialty Start Date End Date aGlina Iraheta MD [address] [place] [address] PCP - General Internal Medicine 01/15/16 Sal Bonilla DO [address] [place] [address] Hematology/Oncology 03/22/22 Ribbon Hand Relationship Specialty Start Date End Date Galina Iraheta MD [address] [place] [address] PCP - General Internal Medicine 01/15/16 Sal Bonilla DO [address] [place] [address] Hematology/Oncology 03/22/22 Ribbon Hand Relationship Specialty Start Date End Date Galina Iraheta MD [address] [place] [address] PCP - General Internal Medicine 01/15/16 Sal Bonilla DO [address] [place] [address] Hematology/Oncology 03/22/22 Ribbon Hand Relationship Specialty Start Date End Date Galina Iraheta MD [address] [place] [address] PCP - General Internal Medicine 01/15/16 Sal Bonilla DO [address] [facility] [place] [address] Hematology/Oncology 03/22/22 Ribbon Hand Relationship Specialty Start Date End Date Galina Iraheta MD [address] [place] [address] PCP - General Internal Medicine 01/15/16 Sal Bonilla DO [address] [facility] [place] [address] Hematology/Oncology 03/22/22 Ribbon Hand Relationship Specialty Start Date End Date Galina Iraheta MD [address] [place] [address] PCP - General Internal Medicine 01/15/16 Sal Bonilla DO [address] [facility] [place] [address] Hematology/Oncology 03/22/22 Ribbon Hand Relationship Specialty Start Date End Date Reji Reyna MD [address] [place] [address] PCP - General Internal Medicine 02/24/23 Sal Bonilla DO [address] [facility] [place] [address] Hematology/Oncology 03/22/22 Ribbon Hand Relationship Specialty Start Date End Date Reji Reyna MD [address] [place] [address] PCP - General Internal Medicine 02/24/23 Sal Bonilla DO [address] [place] [address] Hematology/Oncology 03/22/22 Ribbon Hand Relationship Specialty Start Date End Date Reji Reyna MD [address] [place] [address] PCP - General Internal Medicine 02/24/23 Sal Bonilla DO [address] [place] [address] Hematology/Oncology 03/22/22 Ribbon Hand Relationship Specialty Start Date End Date Reji Reyna MD [address] [place] [address] PCP - General Internal Medicine 02/24/23 Sal Bonilla DO [address] [place] [address] Hematology/Oncology 03/22/22 Ribbon Hand Relationship Specialty Start Date End Date Reji Reyna MD [address] [place] [address] PCP - General Internal Medicine 02/24/23 Sal Bonilla DO [address] [place], [place] [address] [phone] Hematology/Oncology 03/22/22 Ribbon Hand Relationship Specialty Start Date End Date Reji Reyna MD [address] [place], [place] [address] PCP - General Internal Medicine 02/24/23 Sal Bonilla DO [address] [place] [address] Hematology/Oncology 03/22/22 Ribbon Hand Relationship Specialty Start Date End Date Reji Reyna MD [address] [place] [address] PCP - General Internal Medicine 02/24/23 Sal Bonilla DO [address] [place] [address] Hematology/Oncology 03/22/22 Ribbon Hand Relationship Specialty Start Date End Date Reji Reyna MD [address] [place] [address] PCP - General Internal Medicine 02/24/23 Sal Bonilla DO [address] [place] [address] Hematology/Oncology 03/22/22 Ribbon Hand Relationship Specialty Start Date End Date Reji Reyna MD [address] [place] [address] PCP - General Internal Medicine 02/24/23 Sal Bonilla DO [address] [place], [place] [address] [phone] Hematology/Oncology 03/22/22 Ribbon Hand Relationship Specialty Start Date End Date Reji Reyna MD [address] [place], [place] [address]- PCP - General Internal Medicine 02/24/23 Sal Bonilla DO [address] [place] [address] Hematology/Oncology 03/22/22 Ribbon Hand Relationship Specialty Start Date End Date Reji Reyna MD [address] [place] [address] PCP - General Internal Medicine 02/24/23 Sal Bonilla DO [address] [place] [address] Hematology/Oncology 03/22/22 Ribbon Hand Relationship Specialty Start Date End Date Reji Reyna MD [address] [place] [address] PCP - General Internal Medicine 02/24/23 Sal Bonilla DO [address] [place] [address] Hematology/Oncology 03/22/22 Ribbon Hand Relationship Specialty Start Date End Date Reji Reyna MD [address] [place] [address] PCP - General Internal Medicine 02/24/23 Sal Bonilla DO [address] [place] [address] Hematology/Oncology 03/22/22 Ribbon Hand Relationship Specialty Start Date End Date Reji Reyna MD [address] [place] [address] PCP - General Internal Medicine 02/24/23 Sal Bonilla DO [address] [place] [address] Hematology/Oncology 03/22/22 Ribbon Hand Relationship Specialty Start Date End Date Reji Reyna MD [address] [place] [address] PCP - General Internal Medicine 02/24/23 Sal Bonilla DO [address] [place] [address] Hematology/Oncology 03/22/22 Ribbon Hand Relationship Specialty Start Date End Date Reji Reyna MD [address] [place] [address] PCP - General Internal Medicine 02/24/23 Sal Bonilla DO [address] [place] [address] Hematology/Oncology 03/22/22 Ribbon Hand Relationship Specialty Start Date End Date Reji Reyna MD [address] [place] [address] PCP - General Internal Medicine 02/24/23 Sal Bonilla DO [address] [place] [address] Hematology/Oncology 03/22/22 Ribbon Hand Relationship Specialty Start Date End Date Reji Reyna MD [address] [place] [address] PCP - General Internal Medicine 02/24/23 Sal Bonilla DO [address] [place] [address] Hematology/Oncology 03/22/22 Ribbon Hand Relationship Specialty Start Date End Date Reji Reyna MD [address] [place] [address] PCP - General Internal Medicine 02/24/23 Sal Bonilla DO [address] [place] [address] Hematology/Oncology 03/22/22 Ribbon Hand Relationship Specialty Start Date End Date Reji Reyna MD [address] [place] [address] PCP - General Internal Medicine 02/24/23 Sal Bonilla DO [address] [place] [address] Hematology/Oncology 03/22/22 Ribbon Hand Relationship Specialty Start Date End Date Reji Reyna MD [address] [place] [address] PCP - General Internal Medicine 02/24/23 Sal Bonilla DO [address] [place] [address] Hematology/Oncology 03/22/22 Ribbon Hand Relationship Specialty Start Date End Date Reji Reyna MD [address] [place] [address] PCP - General Internal Medicine 02/24/23 Sal Bonilla DO [address] [place] [address] Hematology/Oncology 03/22/22 Ribbon Hand Relationship Specialty Start Date End Date Reji Reyna MD [address] [place] [address] PCP - General Internal Medicine 02/24/23 Sal Bonilla DO [address] [place] [address] Hematology/Oncology 03/22/22 Ribbon Hand Relationship Specialty Start Date End Date Galina Iraheta MD [address] [place] [address] PCP - General Internal Medicine 01/15/16 02/23/23 13, Pharmacist [id number] [place] [address] Pharmacist Pharmacy 08/22/20 11/04/21 Ribbon Hand Relationship Specialty Start Date End Date Galina Iraheta MD [address] [place] [address] PCP - General Internal Medicine 01/15/16 02/23/23 13, Pharmacist [id number] [place] [address] Pharmacist Pharmacy 08/22/20 11/04/21 Ribbon Hand Relationship Specialty Start Date End Date Galina Iraheta MD [address] [place] [address] PCP - General Internal Medicine 01/15/16 02/23/23 Ribbon Hand Relationship Specialty Start Date End Date Reji Reyna MD [address] [place] [address] PCP - General Internal Medicine 02/24/23 Sal Bonilla DO [address] [facility] [place] [address] Hematology/Oncology 03/22/22 Ribbon Hand Relationship Specialty Start Date End Date Reji Reyna MD [address] [place] [address] PCP - General Internal Medicine 02/24/23 Sal Bonilla DO [address] [facility] [place] [address] Hematology/Oncology 03/22/22 Ribbon Hand Relationship Specialty Start Date End Date Reji Reyna MD [address] [place] [address] PCP - General Internal Medicine 02/24/23 Sal Bonilla DO [address] [facility] [place] [address] Hematology/Oncology 03/22/22 Ribbon Hand Relationship Specialty Start Date End Date Reji Reyna MD [address] [place] [address] PCP - General Internal Medicine 02/24/23 Sal Bonilla DO [address] [facility] [place] [address] Hematology/Oncology 03/22/22 Ribbon Hand Relationship Specialty Start Date End Date Reji Reyna MD [address] [place], [place] [phone] PCP - General Internal Medicine 02/24/23 Sal Bonilla DO [address] [place] [address] Hematology/Oncology 03/22/22 Ribbon Hand Relationship Specialty Start Date End Date Reji Reyna MD [address] [place] [address] PCP - General Internal Medicine 02/24/23 Sal Bonilla DO [address] [place] [address] Hematology/Oncology 03/22/22 Ribbon Hand Relationship Specialty Start Date End Date Reji Reyna MD [address] [place] [address] PCP - General Internal Medicine 02/24/23 Sal Bonilla DO [address] [facility] [place] [address] Hematology/Oncology 03/22/22 Ribbon Hand Relationship Specialty Start Date End Date Reji Reyna MD [address] [place] [address] PCP - General Internal Medicine 02/24/23 Sal Bonilla DO [address] [place] [address] Hematology/Oncology 03/22/22 Ribbon Hand Relationship Specialty Start Date End Date Reji Reyna MD [address] [place], [place] [phone] PCP - General Internal Medicine 02/24/23 Sal Bonilla DO [address] [place] [address] Hematology/Oncology 03/22/22 Ribbon Hand Relationship Specialty Start Date End Date Reji Reyna MD [address] [place] [address] PCP - General Internal Medicine 02/24/23 Sla Bonilla DO [address] [facility] [place] [address] Hematology/Oncology 03/22/22 Ribbon Hand Relationship Specialty Start Date End Date Reji Reyna MD [address] [place] [address] PCP - General Internal Medicine 02/24/23 Sal Bonilla DO [address] [place] [address] Hematology/Oncology 03/22/22 Ribbon Hand Relationship Specialty Start Date End Date Reji Reyna MD [address] [place] [address] PCP - General Internal Medicine 02/24/23 Sal Bonilla DO [address] [facility] [place] [address] Hematology/Oncology 03/22/22 Team Status: Active Member Role [...] April 23, 2024 End: April 23, 2024 Rjei POPE MD Attending Provider Active Start: April [...] 2024 End: May 13, 2024 Galina Horner DINING HOST, DINING HOST-C Attending Provider Active Start: May 13, 2024 [...] August 18, 2024 End: August 18, 2024 Ribbon Hand Relationship Specialty Start Date End Date Reji Reyna MD [address] [place] [address] PCP - General Internal Medicine 02/24/23 Sal Bonilla DO [address] [place] [address] Hematology/Oncology 03/22/22 Team Status: Active Member Role Status Dates Dr. Reji Reyna MD Primary Care Provider Active Start: August 30, 2024 Reji POPE MD Attending Provider Active Start: August 30, 2024 Team Status: Active Member Role Status Dates Dr. Reji Reyna MD Primary Care Provider Active Start: September 03, 2024 Dr. Reji Reyna MD Referring Provider Active Start: September 03, 2024 OLIVE Waters Attending Provider Active Start: September 03, 2024 Team Status: Inactive Member Role Status Dates Dr. Reji Reyna MD Primary Care Provider Active Start: September 03, 2024 End: September 03, 2024 Dr. Charles Ramos MD Attending Provider Active S tart: September 03, 2024 End: September 03, 2024 Team Status: Inactive Member Role Status Dates Dr. Reji Reyna MD Primary Care Provider Active Start: September 03, 2024 End: September 03, 2024 Dr. Reji Reyna MD Referring Provider Active Start: September 03, 2024 End: September 03, 2024 SAVANNAH WatersC Attending Provider Active Start: September 03, 2024 End: September 03, 2024 Team Status: Inactive Member Role Status Dates Dr. Reji Reyna MD Primary Care Provider Active Start: September 07, 2024 End: September 07, 2024 Dr. Reji Reyna MD Referring Provider Active Start: September 07, 2024 End: September 07, 2024 OLIVE Frank Attending Provider Active Start: September 07, 2024 End: September 07, 2024 Team Status: Inactive Member Role Status Dates Dr. Reji Reyna MD Primary Care Provider Active Start: August 12, 2024 End: August 12, 2024 Galina Horner NP, NP-C Attending Provider Active Start: August 12, 2024 End: August 12, 2024 Ribbon Hand Relationship Specialty Start Date End Date Reji Reyna MD [address] [place], [place] [address] PCP - General Internal Medicine 02/24/23 Sal Bonilla DO [address] [place] [address] Hematology/Oncology 03/22/22 Goals (unrecognized section and content) [...] on Fri06/18/23 at 0916, Until Fri06/18/23 at 915 Given 06/18/2023 9:16 AM EDT 6 mg Knee, Left lidocaine (PF) 10 mg/mL (1 %) 4 mL injection (XYLOCAINE) 4 mL, Injection - FOR ORTHO USE ONLY, ONCE, 1 dose, Starting on Fri06/18/23 at 0916, Until Fri06/18/23 at 09 Given 06/18/2023 9:16 AM EDT 4 mL [...] BE BASED ON THE PRIMARY CLINICAL RECORDS. [facility]. provides no warranty or guarantee of the accuracy or completeness of information in this document.
[2024-09-14 06:46] LABS: Color, Urine Yellow (Yellow); Glucose, Dipstick Normal (Normal); Ketone-Dipstick 5 mg/dl (Negative); Leukocyte Esterase-Dipstick 500 /ul (Negative); Nitrite-Dipstick Negative (Negative); Occult Blood-Urine 50 /ul (Negative); Protein-Dipstick 30 mg/dl (Negative); Specific Gravity, Urine 1.015 (1.002-1.030); Urine Bilirubin Dipstick Negative (Negative)
[2024-09-14 07:28] LABS: Red Blood Cells-Urine 0-5 SEEN /hpf (0-5); Squamous Epithelial Cells - UA 0-5 SEEN /hpf (5-10)
--- NOTE | 2024-09-14 07:34 | EX.ED.DYSGE1 ---
HPI History of Present Illness Chief Complaint: Fall Informant: patient, family and SNF Narrative Narrative: Patient is an 89-year-old female from the [facility] with history of proximal A-fib currently on metoprolol but no anticoagulation as well as hypothyroidism and depression. Patient and daughter state that she also has difficulty ambulating. Patient reports that she was trying to get up this morning and lost her balance and fell landing on her right side. She denies any loss of consciousness. [facility] states that the nurse had walked by the patient's room and she was in bed and then roughly 15 minutes later was passing by again and noticed her on the ground and therefore patient could only have been down for 15 to 20 minutes. The patient complains of pain in the right elbow and they have noticed a skin tear at that site. Daughter states patient has been more confused recently and there is concern for UTI. Therefore because of the fall and concern for underlying trauma and infection she was sent in for evaluation [facility] Medical History Loss of hearing Wears glasses Hx of squamous cell carcinoma Cancer Depression Open wound History of steroid therapy Thyroid disease Rheumatoid arthritis Bladder disease Cirrhosis Anemia Restless legs Back pain Migraine headache Injury of head and neck Syncope History of esophageal varices with bleeding History of IBS History of diverticulitis Gastric reflux Non-smoker BiPAP (biphasic positive airway pressure) dependence Leg cramps History of pain when walking History of edema History of echocardiogram History of stress test Cardiology follow-up encounter History of rheumatic fever History of atrial fibrillation Breast CA Home Medications ?Medication ?Instructions ?Recorded ?Last Taken ?Type diclofenac sodium 1 % topical gel 100 g TP PRN PRN Pain 03/26/18 Unknown History (Voltaren) acetaminophen 325 mg tablet 650 mg PO Q6H PRN Pain 08/20/21 Unknown History (Tylenol) guaifenesin 100 mg/5 mL oral liquid 200 mg PO Q4H PRN Cough 03/06/22 Unknown History Handicapped placcard See Rx Instructions .Route 04/22/22 Unknown Rx .COMPLEX #1 unit polyethylene glycol 3350 17 gram 17 g PO QDAY PRN 08/13/24 Unknown History oral powder packet carboxymethylcellulose sodium 1 % 1 drp ophthalmic (eye) 4-6XD PRN 09/07/24 Unknown History eye drops (Artificial Tears (carboxymethylcellulose)) cetirizine 10 mg tablet 10 mg PO QDAY PRN 09/07/24 Unknown History copper gluconate 2 mg capsule 2 mg PO QDAY 09/07/24 Unknown History denosumab 60 mg/mL subcutaneous 60 mg subcut [id number] 09/07/24 Unknown History syringe (Prolia) escitalopram oxalate 10 mg tablet 10 mg PO QDAY 09/07/24 Unknown History ferrous gluconate 324 mg (37.5 mg 324 mg PO QDAY 09/07/24 Unknown History iron) tablet fluticasone propionate 50 2 spray intranasal QDAY 09/07/24 Unknown History mcg/actuation nasal spray,suspension (Flonase Allergy Relief) furosemide 20 mg tablet (Lasix) 20 mg PO Q OTHER DAY 09/07/24 Unknown History gabapentin 300 mg capsule 300 mg PO QHS 09/07/24 Unknown History levothyroxine 25 mcg capsule 25 mcg PO QDAY 09/07/24 Unknown History methenamine hippurate 1 gram tablet 1 g PO BID 09/07/24 Unknown History metoprolol succinate 25 mg 25 mg PO QDAY 09/07/24 Unknown History tablet,extended release 24 hr modafinil 100 mg tablet 100 mg PO QAM PRN 09/07/24 Unknown History omeprazole 40 mg capsule,delayed 40 mg PO QDAY 09/07/24 Unknown History release prednisone 20 mg tablet 5 mg PO QDAY PRN 09/07/24 Unknown History sennosides 8.6 mg-docusate sodium 1 tab-cap PO QHS 09/07/24 Unknown History 50 mg capsule (Senna Plus) tramadol 25 mg tablet 25 mg PO Q6H PRN 09/07/24 Unknown History nitrofurantoin 100 mg PO BID 7 days #14 caps 09/14/24 Unknown Rx monohydrate/macrocrystals 100 mg capsule (Macrobid) Allergy/AdvReac Type Severity Reaction Status Date / Time DESMOND Inhibitors Allergy Unknown Verified 09/14/24 05:40 adhesive Allergy Unknown Verified 09/14/24 05:40 cyclobenzaprine HCl (From Allergy Unknown Verified 09/14/24 05:40 Flexeril) diclofenac sodium (From Allergy Unknown Verified 09/14/24 05:40 Arthrotec) hydrochlorothiazide Allergy Unknown Verified 09/14/24 05:40 lisinopril (From Zestril) Allergy Unknown Verified 09/14/24 05:40 metronidazole (From Flagyl) Allergy Unknown Verified 09/14/24 05:40 misoprostol (From Arthrotec) Allergy Unknown Verified 09/14/24 05:40 naproxen Allergy Unknown Verified 09/14/24 05:40 paroxetine HCl (From Paxil) Allergy Unknown Verified 09/14/24 05:40 prednisolone acetate (From Allergy Unknown Verified 09/14/24 05:40 Blephamide) sulfacetamide sodium (From Allergy Unknown Verified 09/14/24 05:40 Blephamide) Surgical History History of esophagogastroduodenoscopy (EGD) Hx of colonoscopy Hx of resection of small bowel Hx of oophorectomy Hx of tonsillectomy Hx of mastectomy H/O mastectomy Social History Smoking Status: Never smoker ROS ROS ED Constitutional Constitutional ED: Reports other Details: Positive fatigue ; Denies chills or fever(s) Eyes Eyes: Denies change in vision ENT ENT ED: Denies sore throat Cardiovascular Cardiovascular: Reports other Details: Negative syncope ; Denies chest pain Respiratory/Chest Respiratory/Chest: Denies cough or dyspnea Gastrointestinal Gastrointestinal: Denies abdominal pain, diarrhea, nausea or vomiting Genitourinary Genitourinary ED: Denies dysuria Musculoskeletal Musculoskeletal: Reports other Details: Positive right elbow pain ; Denies back pain or neck pain Integumentary Reports other Details: Positive skin tear right elbow ; Denies rash Neurologic Neurologic: Reports weakness; Denies headache(s) Hematologic/Lymphatic Hematologic/Lymphatic: Denies easy bleeding or easy bruising EXAM Physical Exam Const Vital Signs: 09/14/24 05:45 09/14/24 05:47 09/14/24 07:56 Temperature 97.7 F L 97.6 F L Temperature Source Oral Temporal Pulse Rate 88 82 Respiratory Rate 16 18 Blood Pressure 130/66 H 138/75 H Blood Pressure Mean 87 96 Pulse Ox 97 96 Oxygen Delivery Method Room Air Room Air Room Air 09/14/24 07:57 Temperature 97.6 F L Temperature Source Pulse Rate 82 Respiratory Rate 18 Blood Pressure 138/75 H Blood Pressure Mean 96 Pulse Ox 96 Oxygen Delivery Method Positive well nourished and well developed General Appearance ED: well developed HEENT HEENT Narrative: Patient has a 2 x 2 hematoma along the occipital portion of the scalp consistent with report of recent fall. However there is no scalp laceration. No signs of depressed or basilar skull fracture. Eyes PERRL and EOMs intact bilaterally General Eye ED: Negative for scleral icterus Neck supple Neck Narrative: No bony deformity or step-off of the cervical spine no midline tenderness to palpation Chest Wall palpation of chest normal Chest Narrative: No bony deformity or crepitus noted Resp normal respiratory effort and clear to auscultation bilaterally Resp Narrative: Breath sounds are diminished throughout but overall clear to auscultation without signs of respiratory distress Cardio regular rate and regular rhythm Rate: other Other Details: Radial and carotid pulses are equal and symmetric GI normal to inspection, nondistended, normoactive bowel sounds, non-tender, non-distended and no masses GI Narrative: No voluntary guarding or rigidity or pulsatile mass Auscultation: normoactive bowel sounds Palpation: soft Back/Spine Back/Spine Narrative: No bony deformity or step-off of the thoracic or lumbar spine no midline tenderness to palpation Extremity Extremity Narrative: Pelvis is stable there is no shortening or external rotation of either lower extremity Right upper extremity is neurovascularly intact. There is soft tissue swelling along the olecranon with a 1 x 2 cm skin tear with minimal ooze of blood along the lateral epicondyle region of the elbow. There is no obvious bony deformity or joint effusion. No ligamentous laxity. Negative sulcus sign All compartments are soft and compressible going against compartment syndrome Neuro CN's II-XII intact bilaterally and no sensory deficits noted Neuro Narrative: Patient is awake and alert and oriented to person and place but disoriented to time. No focal neurologic deficit noted Sensorium / Orientation: alert Psych mental status grossly normal Skin Skin Narrative: Skin tear to the right elbow with hematoma to the occipital portion of the scalp as documented above MDM MDM MDM Narrative Medical decision making narrative: Patient arrived to the ER with stable vitals. She reported a mechanical fall and [facility]pc reported she was only on the ground for approximately 15 minutes going against rhabdomyolysis or need for cardiac or syncope workup. She is not on a blood thinner but with the trauma noted to the occipital portion of the scalp there is concern for skull fracture versus traumatic subarachnoid or subdural hemorrhage. Patient also may have developed a cervical compression fracture so CTs of the head and cervical spine were obtained. These images revealed no acute finding. With trauma to the right elbow and her fall there is concern for radial head fracture versus supracondylar fracture versus joint effusion. X-ray of the elbow revealed no acute finding and pelvis x-ray revealed no sign of femoral neck or pubic rami fracture. The patient's urine sample did show changes consistent with infection. However her vitals are stable and do not suggest patient has findings for urosepsis. Therefore the patient will have the urine sent for culture and she will be started on antibiotics secondary to the infection. As the patient has a skin tear there is no way to perform closure with sutures and therefore it will be wrapped and allowed to heal by secondary intention. Therefore at this time as workup reveals no signs of underlying trauma and she does have a UTI but without physical exam findings for urosepsis there is no need for further intervention and she is otherwise safe for discharge History & Record Review Discussion w/independent historian: Patient and Family Lab Data Attestation: I reviewed the patient's lab results. Labs: Laboratory Results - last 24 hr 09/14/24 06:30 Urine Color Yellow Urine Clarity Sl. Cloudy Urine pH 6.5 Ur Specific Huntly 1.015 Urine Protein 30 H Urine Glucose (UA) Normal Urine Ketones 5 H Urine Occult Blood 50 H Urine Nitrite Negative Urine Bilirubin Negative Urine Urobilinogen 1 H Ur Leukocyte Esterase 500 H Urine RBC 0-5 SEEN Urine WBC 10-25 SEEN Ur Squamous Epith Cells 0-5 SEEN Urine Bacteria 3+ Urine Mucus 0 SEEN Radiography Diagnostic Testing: Clinical Impression(s) from Imaging Studies Brain CT 09/14/24 05:56 IMPRESSION: No acute intracranial pathology. Reading Location: [facility] Cervical Spine CT 09/14/24 05:56 IMPRESSION: There is mild central canal stenosis at C4-5, secondary to disc and osteophyte protrusion, similar to the prior. There is no visible acute traumatic injury. Reading [facility] Pelvis X-Ray 09/14/24 06:09 IMPRESSION: No fracture is identified. Reading Location: [facility] Elbow X-Ray 09/14/24 06:10 IMPRESSION: No fracture or dislocation is identified. Reading Location: [facility] Right elbow x-ray as interpreted by the emergency medicine physician reveals no acute fracture dislocation or joint effusion Pelvis x-ray as interpreted by the emergency medicine physician reveals no acute fracture or dislocation Discharge Plan Triage Chief Complaint: Fall ED Provider: Sung Torres Dx/Rx/DC Orders Clinical Impression: Accidental fall, Contusion of right elbow, UTI (urinary tract infection), Skin tear of right elbow without complication, Hypothyroidism, Paroxysmal atrial fibrillation Instructions: Urinary Tract Infections in Women, Bone Contusion, ED Skin Tear (Skin Avulsion) Prescriptions: New nitrofurantoin monohyd/m-cryst [Macrobid] 100 mg capsule 100 mg PO BID 7 Days Qty: 14 0RF Rx Instructions: must administer with a meal/food No Action polyethylene glycol 3350 17 gram powder in packet 17 g PO QDAY PRN prednisone 20 mg tablet 5 mg PO QDAY PRN escitalopram oxalate 10 mg tablet 10 mg PO QDAY furosemide [Lasix] 20 mg tablet 20 mg PO Q OTHER DAY methenamine hippurate 1 gram tablet 1 g PO BID metoprolol succinate 25 mg tablet extended release 24 hr 25 mg PO QDAY levothyroxine 25 mcg capsule 25 mcg PO QDAY omeprazole 40 mg capsule,delayed release(DR/EC) 40 mg PO QDAY gabapentin 300 mg capsule 300 mg PO QHS Senna Plus 8.6-50 mg capsule 1 tab-cap PO QHS ferrous gluconate 324 mg (37.5 mg iron) tablet 324 mg PO QDAY tramadol 25 mg tablet 25 mg PO Q6H PRN cetirizine 10 mg tablet 10 mg PO QDAY PRN modafinil 100 mg tablet 100 mg PO QAM PRN fluticasone propionate [Flonase Allergy Relief] 50 mcg/actuation spray,suspension 2 spray intranasal QDAY Rx Instructions: administer into each nostril Artificial Tears (cmc) 1 % drops 1 drp ophthalmic (eye) 4-6XD PRN copper gluconate 2 mg capsule 2 mg PO QDAY Prolia 60 mg/mL syringe 60 mg subcut [id number] diclofenac sodium [Voltaren] 100 GM gel 100 g TP PRN PRN (Reason: Pain) acetaminophen [Tylenol] 325 mg Tablet 650 mg PO Q6H PRN (Reason: Pain) guaifenesin 100 mg/5 mL Liquid 200 mg PO Q4H PRN (Reason: Cough) Handicapped placcard See Rx Instructions .ROUTE .COMPLEX Qty: 1 0RF Rx Instructions: 1 each; 5 years. Expires 03/22/27. Primary Care Provider: Galina Horner NP Referrals: Galina Horner NP, JUMPBASTING MACHINE OPERATOR-C [Primary Care Provider] - Activity Restrictions/Additional Instructions: The CT scan of your head and cervical spine revealed no signs of acute trauma. X-rays of your right elbow and pelvis also showed no sign of fracture. Your urine does show changes consistent with UTI and therefore take the antibiotic as directed to help resolve this. Return to the ER should you have any further concerns Print Language: Upper Sorbian Disposition Disposition: Assisted Living Discharge Location: [facility] Discharge Date/Time: 09/14/24 08:08
[2024-09-14 07:56] VITALS: BP 138/75; PULSE 82; RESP 18; TEMP 36.4; O2SAT 96
[2024-09-14 07:57] VITALS: BP 138/75; PULSE 82; RESP 18; TEMP 36.4; O2SAT 96
== END 2024-09-14 08:08 | disposition home or self-care (01) ==
PROVIDERS: Emergency Provider Emergency Medicine; PCP Nurse Practitioner Adult Health; Visit Provider Emergency Medicine
DX: S51.011A Laceration without foreign body of right elbow, initial encounter (principal); I48.0 Paroxysmal atrial fibrillation; S00.03XA Contusion of scalp, initial encounter; W19.XXXA Unspecified fall, initial encounter; Y92.122 Bedroom in nursing home as the place of occurrence of the external cause; N39.0 Urinary tract infection, site not specified; E03.9 Hypothyroidism, unspecified; F32.A Depression, unspecified; Z79.890 Hormone replacement therapy; Z79.899 Other long term (current) drug therapy
CPT/HCPCS: 70450; 72125; 72170; 73080; 81001; 87077; 87086; 87088; 87186; 99284; P9612

== ENCOUNTER → 2024-10-04 05:00 | Outpatient (REF) | payer MEDICARE, BC, SELFPAY ==
[2024-10-04 08:24] LABS: Hematocrit 36.4 % (37-47); Hemoglobin 12.3 g/dL (12.0-15.0); Immature Granulocytes Count 0.030 X10^3/uL (0.0-0.0); Mean Corp Hgb Conc 33.8 g/dL (32-36); Mean Corpuscular Volume 101.4 fL (81-99); Mean Platelet Vol. 10.4 fl (6.2-12.0); NRBC Flagged by Analyzer 0 % (0-5); Platelet Count 101 K/mm3 (150-450); RBC Distribution Width CV 15.7 % (11.6-14.6); RBC Distribution Width SD 59.2 fl (35.1-43.9); Red Blood Count 3.59 M/mm3 (4.2-5.4); White Blood Count 5.7 K/mm3 (4.4-11.0)
[2024-10-04 08:42] LABS: AST(SGOT) 35 U/L (<=31); Alanine Aminotransfer ALT/SGPT 40 U/L (<=34); Albumin, Serum 3.1 g/dL (3.4-4.8); Alkaline Phosphatase 63 U/L (35-104); Anion Gap 11 (5-15); BUN 15 mg/dL (4-19); BUN/Creat Ratio 25.0 RATIO (10-20); Calcium,Total 9.4 mg/dL (7.6-11.0); Carbon Dioxide 22.9 mmol/L (21.0-32.0); Chloride 109 mmol/L (98-108); Globulin 3.1 g/dL (2.2-4.2); Glucose 72 mg/dL (70-99); Potassium 3.8 mmol/L (3.3-5.1)
== END ==
LOC: OLS.WHLTSB 05:00
PROVIDERS: PCP Nurse Practitioner Adult Health; Visit Provider Internal Medicine
DX: I49.9 Cardiac arrhythmia, unspecified (principal)
CPT/HCPCS: 36415; 80053; 85025

== ENCOUNTER 2024-10-13 14:58 | Outpatient (RCR) | payer MEDICARE, BC, MEDICAID, SELFPAY ==
--- NOTE | 2024-10-13 16:39 | HP.OTEVAL_ITS ---
Patient's Visit Information Visit Information Visit Information: CHRISTIAN CARDENAS is a 89 year old F, referred to Occupational Therapy by OLIVE Waters, with a diagnosis of lower end ulnar fx.. Date of Evaluation: 10/13/24 Occupational Therapist: Cely Capone, OTR/Agnes, CHT Subjective Subjective: This 89 year old female was seen for OT eval with dx of left distal ulna fx- pt states she had a fall at her [facility] when she was getting out of the shower. This happened Aug 10 2024. Pt states she went for x rays on Aug 13 2024. pt arrives to day for custom/ removable short arm brace and recommendations for weaning and OT at [facility]. pt arrives 9 weeks and 5 days out from date of dx and casting. pt states she lives in [facility] use of rollator and shower bench- since fall pt has been in WC ( pt is doing Physical therapy) ROM ROM Comments: pt demo with left forearm supination and pronation wfl - and no reports of pain . left wrist 45/40 right 50/50 pt demo full composite fist Strength Continuity Manager: right 35# left NT Sensation Sensation Comments: denies Quick DASH-Disab of Arm,Shoulder& Hand Quick DASH Score: 45.4525 Goals Goal:: pt will report return of using left UE for bathing/dressing and daily tasks by d/c Rehabilitation General Assessment: pt arrives 9 weeks and 5 days out from fx stabilization . Pt demo with healing fx and limited use of left UE with ADLs. Pt would benefit from short arm splint for tsf, and while sleeping until pt returns for what was recommended at 4 weeks from her last ortho apt. today therapist herb. custom orthosis. therapist ed. pt and made rec. for WILLIAM to have pt wear orthosis with her physical therapy for ambulation with rollator/ tsf and night- off with seated tasks as eating, playing bingo or reading. OT is rec. therapy 2x week for 4 weeks to improve pts functional strength of left UE for ADLs. transition to d/c splint in about 2 weeks following confirmation of healed fx on x valle ( Oct.22 possibly). Rehabilitation Potential: Good Anticipated Interventions Anticipated Interventions: Strengthening, Orthoses, Education re assistive Equipment, Education re Diagnosis and Caregiver Training Visit Plan Frequency: 1-2x /Week Duration: 4 Weeks General Plan: pt to undergo OT at [facility] 2x week for 4 weeks to improve pts functional use of left UE with daily tasks. therapist ed. pt to wear splint with tsf, the physical therapy she is having to strengthen her legs, and while sleeping. pt able to have splint off with seated activity as eating or bathing or other tasks she participates in at a table top. therapist rec.d light strengthening with use of putty and 1-2#. pt was to schedule for x-rays 4 weeks. ( aprox Oct 22). once x ray is cleared would d/c splint. and return to use as tolerated. TEXT: Thank you for the opportunity to evaluate your patient. For Medicare and Medicare HMO plans, please review the plan of care and approve it. It will need to be FAXED BACK to us at [phone] for Medicare purposes. Please let me know if there are questions or concerns regarding this plan of care. Physician Signature: Date:
--- NOTE | 2024-12-07 15:52 | HP.OT.NRP ---
Patient Information Patient Information: CHRISTIAN CARDENAS was seen in my office for initial evaluation on 10/13/24. The following Plan of Care was established for this patient: POC Established Initial Frequency: 1-2x /Week Initial Duration: 4 Weeks Anticipated Interventions Anticipated Interventions: Strengthening, Orthoses, Education re assistive Equipment, Education re Diagnosis and Caregiver Training Last Seen Last Seen: This patient was last seen in our office 10/13/24. Pertinent comments regarding their Occupational therapy will appear below: no further apts have been scheduled and due to time lapse in services pt is d/c at this time. At this point I will be discontinuing this patient from occupational therapy. I would be happy to see this patient again in the future if found appropriate by the physician. Thank you! Cely Capone, OTR/L, CHT
== END 2024-10-13 19:00 | disposition home or self-care (01) ==
LOC: OT 14:58
PROVIDERS: PCP Nurse Practitioner Adult Health; Referring Provider Nurse Practitioner Family; Visit Provider Nurse Practitioner Family
DX: S52.602D Unspecified fracture of lower end of left ulna, subsequent encounter for closed fracture with routine healing (principal)
CPT/HCPCS: 97167

== ENCOUNTER → 2024-11-01 05:00 | Outpatient (REF) | payer MEDICARE, BC, SELFPAY ==
[2024-11-01 08:22] LABS: Hematocrit 33.8 % (37-47); Hemoglobin 11.2 g/dL (12.0-15.0); Immature Granulocytes Count 0.020 X10^3/uL (0.0-0.0); Mean Corp Hgb Conc 33.1 g/dL (32-36); Mean Corpuscular Volume 104.0 fL (81-99); Mean Platelet Vol. 9.8 fl (6.2-12.0); NRBC Flagged by Analyzer 0 % (0-5); Platelet Count 112 K/mm3 (150-450); RBC Distribution Width CV 15.8 % (11.6-14.6); RBC Distribution Width SD 60.8 fl (35.1-43.9); Red Blood Count 3.25 M/mm3 (4.2-5.4); White Blood Count 5.3 K/mm3 (4.4-11.0)
[2024-11-01 08:44] LABS: AST(SGOT) 32 U/L (<=31); Alanine Aminotransfer ALT/SGPT 32 U/L (<=34); Albumin, Serum 3.1 g/dL (3.4-4.8); Alkaline Phosphatase 57 U/L (35-104); Anion Gap 10 (5-15); BUN 17 mg/dL (4-19); BUN/Creat Ratio 24.9 RATIO (10-20); Calcium,Total 8.9 mg/dL (7.6-11.0); Carbon Dioxide 24.3 mmol/L (21.0-32.0); Chloride 106 mmol/L (98-108); Globulin 3.0 g/dL (2.2-4.2); Glucose 67 mg/dL (70-99); Potassium 4.1 mmol/L (3.3-5.1)
== END ==
LOC: OLS.WHLTSB 05:00
PROVIDERS: PCP Nurse Practitioner Adult Health; Visit Provider Internal Medicine
DX: I49.9 Cardiac arrhythmia, unspecified (principal); E03.9 Hypothyroidism, unspecified
CPT/HCPCS: 36415; 80053; 84443; 85025

== ENCOUNTER → 2024-11-03 05:00 | Outpatient (REF) | payer MEDICARE, BC, SELFPAY ==
--- OUTSIDE RECORDS SUMMARY | 2024-11-03 03:57 | XMS RPT_ITS | CCD ---
Author Organization [facility] Inform ion Partnership [facility] Care Team Providers Care Career Representative Name Role Phone Galina Iraheta MD Primary Care Provider 13, Pharmacist Unavailable Galina Iraheta MD Primary Care Provider Dr. Galina Iraheta Primary Care Provider Tickton WATER TREATMENT PLANT OPERATOR, WATER TREATMENT PLANT OPERATOR-C Galina Attending Provider BASILIA Jerome Attending Unavailable GALINA IRAHETA Referring Unavailable GALINA IRAHETA Primary Care Unavailable BASILIA HERNÁNDZE Attending Unavailable JAYDE HEBERT Referring Unavailable GALINA IRAHETA Primary Care Unavailable Dr. Galina Iraheta Primary Care Provider Tickton WATER TREATMENT PLANT OPERATOR, WATER TREATMENT PLANT OPERATOR-C Galina Attending Provider Galina Pedro MD Primary Care Provider Masci Sal SEWELL Unavailable Dr. Galina Iraheta Primary Care Provider [place]ton WATER TREATMENT PLANT OPERATOR, WATER TREATMENT PLANT OPERATOR-C Galina Attending Provider Dr. Galina Pedro Primary Care Provider [place]ton WATER TREATMENT PLANT OPERATOR, WATER TREATMENT PLANT OPERATOR-C Galina Attending Provider Galina Pedro MD Primary Care Provider Dr. Galina Iraheta Primary Care Provider [place]ton WATER TREATMENT PLANT OPERATOR, WATER TREATMENT PLANT OPERATOR-C Galina Attending Provider Dr. Galina Pedro Primary Care Provider Tickton WATER TREATMENT PLANT OPERATOR, WATER TREATMENT PLANT OPERATOR-C Galina Attending Provider Payam Reyna MD Primary Care Provider Dr. Galina Iraheta Primary Care Provider Siri WATER TREATMENT PLANT OPERATOR, WATER TREATMENT PLANT OPERATOR-C Galina Attending Provider Dr. Galina Iraheta Primary Care Provider Siri WATER TREATMENT PLANT OPERATOR, WATER TREATMENT PLANT OPERATOR-C Galina Attending Provider Maribell PANG, Payam Hilario Primary Care Provider Maribell PANG, Payam Hilario Primary Care Provider Galina Iraheta MD Primary Care Provider 13, Pharmacist Unavailable Alistair PANG, Dr. Mojica Primary Care Provider Maribell PANG, Payam Attending Provider Unavailtasia Reyna MD, Payam Referring Provider Armando Horner WATER TREATMENT PLANT OPERATOR-CGalina Attending Provider Alistair PANG, Dr. Mojica Primary Care Provider Maribell PANG, Payam Attending Provider Unavailtasia Reyna MD, Dr. Hare Attending Provider Alistair PANG, Dr. Mojica Primary Care Provider Maribell PANG, Payam Attending Provider Unavailtasia Abdullahi MD, Dr. Mi Attending Provider Bradly PANG, Dr. Mi Referring Provider Maribell PANG, Dr. Hare Primary Care Provider Maribell PANG, Dr. Hare Referring Provider Yosi PRECIADO-CCarmella Attending Provider Richard PANG, Dr. Soto Attending Provider Dr. Galina Iraheta MD Primary Care Provider Payam Reyna MD Attending Provider Unavailtasia Reyna MD, Payam Referring Provider Unavailtasia Parham NP-CJuliet Attending Provider Dr. Galina Iraheta MD Primary Care Provider Payam Reyna MD Attending Provider Unavaila ble Siri WATER TREATMENT PLANT OPERATOR-C, Galina Attending Provider Dr. Sung Torres DO Emergency Provider Siri WATER TREATMENT PLANT OPERATOR-C, Galina Primary Care Provider Dr. Sung Torres DO Attending Provider RAY, THALIA Referring Unavailable OLEGHE, EFEWONGBE B Primary Care Unavailable OLEGHE, EFEWONGBE B Primary Care Unavailable ARREOLA, CASSIDY Attending Unavailable ARREOLA, CASSIDY Referring Unavailable OLEGHE, EFEWONGBE [...] B Primary Care Unavailable SELF Referring Unavailable SELF Referring Unavailable OLEGHE, EFEWONGBE B Primary Care Unavailable SELF Referring Unavailable RAY, THALIA Attending Unavailable OLEGHE, EFEWONGBE B Primary Care Unavailable RAY, THALIA Attending Unavailable OLEGHE, EFEWONGBE B Primary Care Unavailable ARREOLA, CASSIDY Referring Unavailable OLEGHE, EFEWONGBE B Primary Care Unavailable OLEGHE, EFEWONGBE B Primary Care Unavailable ARREOLA, CASSIDY Attending Unavailable ARREOLA, CASSIDY Referring Unavailable OLEGHE, EFEWONGBE B Primary Care Unavailable Alistair PANG, Dr. Mojica Primary Care Provider Payam Reyna MD Attending Provider Unavaila marcelino Horner WATER TREATMENT PLANT OPERATOR-C, Galina Primary Care Provider Dr. Galina Iraheta MD Primary Care Provider Payam Reyna MD Attending Provider Unavaila marcelino Abdullahi MD, Dr. Mi Attending Provider Bradly PANG, Dr. Mi Referring Provider Deluca WATER TREATMENT PLANT OPERATOR-C, Carmella Referring Provider Siri WATER TREATMENT PLANT OPERATOR-C, Galina Referring Provider Bradly PANG, Dr. Mi Attending Provider Bradly PANG, Dr. Mi Referring Provider Charles Ramos Attending Unavailable Tickton WATER TREATMENT PLANT OPERATOR, [facility] Primary Care Unavailable Oleghe OLS, Efewongbe Attending Unavailabl e Ganta, Galina Primary Care Unavailable Oleghe OLS, Efewongbe Attending Unavailabl e Ganta, Galina Primary Care Unavailable Oleghe OLS, Efewongbe Attending Unavailabl e Ganta, Galina Primary Care Unavailable Sung Torres Attending Unavailable Tickton WATER TREATMENT PLANT OPERATOR, [facility] Primary Care Unavailable Oleghe OLS, Efewongbe Attending Unavailabl e Ganta, Galina Primary Care Unavailable Oleghe OLS, Efewongbe Attending Unavailabl e Ganta, Galina Primary Care Unavailable Oleghe OLS, Efewongbe Attending Unavailabl e Oleghe, Efewongbe Primary Care Unavailable Oleghe OLS, Efewongbe Referring [...] Oleghe OLS, Efewongbe Attending Unavailabl e Ganta, [facility] Primary Care Unavailable Oleghe OLS, Efewongbe [facility] Primary Care Unavailable Oleghe OLS, Efewongbe Attending [facility], [facility] Primary Care Unavailable Oleghe OLS, Efewongbe Referring Unavailabl e Oleghe OLS, Efewongbe Attending [facility] Ganta, [facility] Primary Care Unavailable Oleghe OLS, Efewongbe Attending [facility] Ganta, [facility] Primary Care Unavailable Carmella Deluca Attending Unavailable Tickton WATER TREATMENT PLANT OPERATOR, [facility] Primary Care Unavailable Carmella Deluca Referring Unavailable Oleghe OLS, Efewongbe Attending Unavailabl e Tickton WATER TREATMENT PLANT OPERATOR, [facility] Primary Care Unavailable Oleghe OLS, Efewongbe Attending Unavailabl e Tickton WATER TREATMENT PLANT OPERATOR, [facility] Primary Care Unavailable Oleghe OLS, Efewongbe Attending [facility], [facility] Primary Care Unavailable Tickton WATER TREATMENT PLANT OPERATOR, Galina Attending Unavailable Tickton WATER TREATMENT PLANT OPERATOR, [facility] Primary Care Unavailable Oleghe OLS, Efewongbe Attending [facility], [facility] Primary Care Unavailable Tickton WATER TREATMENT PLANT OPERATOR, Galina Attending Unavailable Tickton WATER TREATMENT PLANT OPERATOR, [facility] Primary Care Unavailable Tickton WATER TREATMENT PLANT OPERATOR, Galina Attending Unavailable [facility] Primary Care Unavailable Oleghe, Efewongbe Attending Unavailable [facility] Primary Care Unavailable Tickton WATER TREATMENT PLANT OPERATOR, Galina Attending Unavailable [facility] Primary Care Unavailable Oleghe, Efewongbe Attending Unavailable [facility] Primary Care Unavailable Carmella Deluca Attending Unavailable Oleghe, Efewongbe Referring Unavailable Oleghe, Efewongbe Primary Care Unavailable Richard, Charles Attending Unavailable Oleghe, Efewongbe Primary Care Unavailable Carmella Deluca Attending Unavailable Oleghe, Efewongbe Referring Unavailable Oleghe, Efewongbe Primary Care Unavailable Richard, [place] Attending Unavailable Oleghe, Efewongbe Primary Care Unavailable Tickton WATER TREATMENT PLANT OPERATOR, Galina Attending Unavailable [facility], Galina Primary Care Unavailable Carmella Deluca Attending Unavailable Oleghe, Efewongbe Referring Unavailable Oleghe, Efewongbe Primary Care Unavailable Juliet Parham Attending Unavailable Oleghe, Efewongbe Referring Unavailable Oleghe, Efewongbe Primary Care Unavailable Richard, [place] Attending Unavailable Oleghe, Efewongbe Primary Care Unavailable Tickton WATER TREATMENT PLANT OPERATOR, Galina Attending Unavailable Oleghe, Efewongbe Primary Care Unavailable Carmella Deluca Attending Unavailable Oleghe, Efewongbe Referring Unavailable Tickton WATER TREATMENT PLANT OPERATOR, [facility] Primary Care Unavailable Richard, Charles Attending Unavailable Tickton WATER TREATMENT PLANT OPERATOR, Galina Primary Care Unavailable Tickton WATER TREATMENT PLANT OPERATOR, Galina Attending Unavailable Tickton WATER TREATMENT PLANT OPERATOR, [facility] Primary Care Unavailable Carmella Deluca Attending Unavailable Tickton WATER TREATMENT PLANT OPERATOR, Galina Referring Unavailable Tickton WATER TREATMENT PLANT OPERATOR, [facility] Primary Care Unavailable Oleghe OLS, Efewongbe Attending UnavailGalina Arrieta Primary Care Unavailable Hiwot Abdullahi Attending Unavailable Hiwot Abdullahi Referring Unavailable Oleghe, Efewongbe Primary Care Unavailable Allergies Allergy Classification Reported Allergen(s) Allergy Type Date of Onset Reaction(s) Facility (20 sources) Angiotensin-converting enzyme inhibitor agent; Translations: [DESMOND INHIBITORS] Drug Intolerance Cough [facility] (20 sources) Cephalexin; Translations: [CEPHALEXIN] Drug Allergy Other: See Comments, [facility] (20 sources) Clindamycin; Translations: [CLINDAMYCIN] Drug Allergy Other: See Comments, [facility] (20 sources) cyclobenzaprine; Translations: [CYCLOBENZAPRINE] Drug Allergy 005 [facility] (20 sources) Diclofenac / miSOPROStol; Translations: [DICLOFENAC-MISOPROSTO L] Drug Allergy 008 Diarrhea [facility] (20 sources) hydroCHLOROthiazide; Translations: [HYDROCHLOROTHIAZIDE] Drug Allergy 006 Mental Status Change [facility] (20 sources) Lisinopril; Translations: [LISINOPRIL] Drug Allergy 008 Unknown [facility] (20 sources) metroNIDAZOLE; Translations: [METRONIDAZOLE HCL] Drug Allergy Mental Status Change, Shortness of Breath [facility] (20 sources) Naproxen; Translations: [NAPROXEN] Drug Allergy Other: See Comments [facility] (20 sources) Naproxen; Translations: [NAPROXEN SODIUM] Drug Allergy Contraindicat ion-Medical Surgical [facility] (20 sources) oxybutynin; Translations: [OXYBUTYNIN] Drug Allergy Other: See Comments [facility] (20 sources) PARoxetine; Translations: [PAROXETINE] Drug Allergy Contraindicat ion-Medical Surgical [facility] (20 sources) prednisoLONE / Sulfacetamide; Translations: [SULFACETAMIDE-PREDNIS OLONE] Drug Allergy Cough [facility] (20 sources) Sulfonamides (Antibiotic); Translations: [SULFA (SULFONAMIDE ANTIBIOTICS)] Drug Allergy 016 Unknown [facility] Work Phone: (20 sources) adhesives [Other] Propensity to adverse reactions Other: See Comments [facility] (20 sources) Adhesive agent; Translations: [adhesive] Allergy to substance Unknown [facility] (20 sources) cyclobenzaprine; Translations: [cyclobenzaprine HCl] Drug Allergy [facility] (20 sources) Diclofenac; Translations: [diclofenac sodium] Drug Allergy [facility] (20 sources) metroNIDAZOLE Drug Allergy [facility] (20 sources) miSOPROStol Drug Allergy [facility] (20 sources) PARoxetine; Translations: [paroxetine HCl] Drug Allergy [facility] (20 sources) prednisoLONE; Translations: [prednisolone acetate] Drug Allergy [facility] (20 sources) Sulfacetamide; Translations: [sulfacetamide sodium] Drug Allergy [facility] (20 sources) Angiotensin-converting enzyme inhibitor agent Drug Intolerance [facility] (20 sources) Angiotensin Converting Enzyme (Desmond) Inhibitors Allergy to substance [facility] Comment on above: ERROR (1 source) OTHER; Translations: [OTHER] Propensity to adverse reactions (disorder) [facility] Other [place] [facility] (16 sources) Hydroxychloroquine; Translations: [HYDROXYCHLOROQUINE] Drug Allergy 024 Rash [facility] (1 source) Angiotensin Converting Enzyme (Desmond) Inhibitors Drug allergy (disorder) [facility] Repository (1 source) hydroCHLOROthiazide Drug Allergy [facility] (1 source) Lisinopril Drug Allergy [facility] (1 source) metroNIDAZOLE Drug Allergy [facility] (1 source) miSOPROStol Drug Allergy [facility] (1 source) Naproxen Drug Allergy [facility] Repository Medications Current Medications Medication Drug [...] Comment on above: Take 1 tablet by [facility] every 8 hours as needed for pain [...] Comment on above: Take 5,000 mcg by [facility] once daily. Calcium (2 sources) Phosphate Binder, Calcium take 600 mg by mouth twice daily CALCIUM ORAL Take 600 mg by mouth two times a day. Active calcium ascorbate 500 mg oral tablet (7 sources) Start: 09-24-2024 take 1 tablet by mouth once daily Ascorbate Calcium (Vitamin C) 500 mg tablet Active 500 mg PO daily September 24, 2024 12:00am Calcium Carb And Citrat-Mag Ox (20 sources) Start: 08-20-2021 take 1 tablet by mouth once daily Calcium Carb And Citrat-Mag Ox Active 1 TABLET PO DAILY August 20, 2021 8:15am Start: 08-20-2021 take 1 tablet by natalie once daily Calcium Carb And Citrat-Mag Ox Active 1 TABLET PO DAILY August 19, 2021 11:00pm Start: 08-20-2021 take 1 tablet by natalie once daily Calcium Carb And Citrat-Mag Ox Active 1 TABLET PO DAILY August 20, 2021 12:00am calcium carbonate 1500 mg oral tablet (7 sources) Start: 09-24-2024 take 1 tablet by mouth twice daily Calcium Carbonate 600 mg calcium (1,500 mg) tablet Active 600 mg PO TWICE A DAY September 24, 2024 12:00am calcium carbonate 1250 mg / cholecalciferol 200 unt oral tablet (20 sources) Vitamin D Start: 2021 End: 09-07-2021 take 1 tablet by mouth once daily calcium-carbonat e-vitamin D3 500 mg-5 mcg (200 unit) per [...] Take 1 tablet by natalie once daily. Uohbzvu-Qxo-Miw Y0-U0-Lzhtycun (Citracal Plus) 720-08-7-125 nu-dz-zu-unit Tablet (20 sources) Start: 08-20-2021 take 1 tablet by mouth twice daily Yicjabu-Oyl-Ugh T7-F9-Gojeotvk (Citracal Plus) 190-67-8-125 ss-wf-so-unit Tablet Active 1 TABLET PO TWICE A DAY August 20, 2021 8:15am Start: 08-20-2021 End: 08-13-2024 Dmyumrr-Meh-Aoe X6-P4-Tagnqf ls (Citracal Plus) 894-39-5-125 nc-to-zv-unit Tablet Discontinued 1 {tbl} PO TWICE A DAY August 20, 2021 12:00am August 13, 2024 2:28pm Start: 08-20-2021 Lidsybu-Wzs-Oo t F2-U9-Ltlkzevi (Citracal Plus) 516-32-8-125 mu-iu-es-unit Tablet Active 1 {tbl} PO TWICE A DAY August 20, 2021 12:00am Start: 08-20-2021 take 1 tablet by natalie twice daily Hijxehl-Zdn-Wwr R6-H6-Zlpyfbco (Citracal Plus) 144-71-8-125 hi-sv-td-unit Tablet Active 1 TABLET PO TWICE A DAY August 19, 2021 11:00pm Start: 08-20-2021 take 1 tablet by natalie twice daily Ldtsswh-Rhg-Sml J8-S3-Jpaxvjpn (Citracal Plus) 870-90-6-125 rg-bj-gg-unit Tablet Active 1 TABLET PO TWICE A DAY August 20, 2021 12:00am carboxymethylcellulose sodiu m 10 mg/ml ophthalmic solution (20 sources) Start: 09-07-2024 Carboxymethylc ellulose Sodium (Artificial [...] EVERY 6 HOURS August 07, 2019 2:14pm cholecalciferol 0.01 mg oral capsule (20 sources) Vitamin D Start: 09-24-2024 take 1 capsule by mouth once daily Cholecalciferol (Vitamin D3) 10 mcg (400 unit) capsule Active 10 ug PO daily September 24, 2024 12:00am Start: 08-20-2021 End: 09-07-2024 take 1 tablet by mouth once daily Cholecalciferol (Vitamin D3) (Vitamin D3) 25 mcg (1,000 unit) Tablet,Chewable Discontinued 25 ug PO DAILY August 20, 2021 12:00am September 07, 2024 2:59pm take 2 tablets by mo uth twice daily cholecalciferol (VITAMIN D-3) 400 unit tab Take two tablets by mouth twice daily. Active End: 2021 take 1 tablet by mouth once daily cholecalciferol (VITAMIN D) 1,000 unit tab tablet Take 1,000 Units by mouth once daily. 2021 Discontinued cholecalciferol (VITAMIN D-3) 50 mcg (2,000 unit) tablet Take 2,000 Units by mouth once daily. Taking 1000 0 Active Comment on above: Take 2,000 Units by mouth once daily. Taking 1000 Take 1,000 Units by mouth once daily. Copper (2 sources) Copper-containing Intrauterine Device take 2 mg by mouth once daily COPPER ORAL Take 2 mg by mouth once daily. Active copper gluconate 2 mg oral capsule (20 sources) Start: 09-07-2024 take 1 capsule by [...] 1 ml denosumab 60 mg/ml prefilled syringe (18 sources) RANK Ligand Inhibitor Start: 09-07-2024 Denosumab [...] needed. docusate sodium 50 mg / sennosides, custodial 8.6 mg oral capsule (20 sources) Start: [...] contrast guidelines 1 Each 02/24/2024 02/25/2024 Active ferrous gluconate 324 mg oral tablet (20 [...] Comment on above: Take 1 tablet by [facility] once daily for 1 day. fluticasone propionate 0.05 mg/actuat metered dose nasal spray (20 sources) Corticosteroid Start: 08-20-2021 End: 09-07-2024 take 50 ug nasal route once daily Fluticasone Propionate (Flonase Allergy Relief) 50 mcg/actuation spray,suspension Active 2 NMA INTRANASAL daily September 07, 2024 12:00am administer into each nostril Start: 08-20-2021 Fluticasone Pr opionate (Flonase Allergy Relief) 50 mcg/actuation [place],Suspension Active 1 SPRAY INTRANASAL DAILY August 20, 2021 12:00am take 2 spray(s) nasa l route once daily fluticasone (FLONASE) 50 mcg/actuation nasal spray Use 2 Sprays in each nostril once daily. Active Comment on above: Use 2 Sprays in each nostril once daily. gabapentin 300 mg oral capsule (20 sources) [...] tablets by mouth once daily. Glucos Sul 3mbu-Pic-Eewpa-C-Mn (Glucosamine Chondroitin) 550-30-1 mg Capsule (13 sources) Start: 08-20-2021 take 1 capsule by mouth at bedtime Glucos Sul 3bcx-Nxd-Dtokr-C-M n (Glucosamine Chondroitin) 550-30-1 mg Capsule Active 1 CAP PO AT BEDTIME August 20, 2021 8:15am Start: 08-20-2021 take 1 capsule by mo [facility] at bedtime Glucos Sul 6jfl-Wql-Kjxjc-C-Mn (Glucosamine Chondroitin) 550-30-1 mg Capsule Active 1 CAP PO AT BEDTIME August 19, 2021 11:00pm Start: 08-20-2021 take 1 capsule by mo [facility] at bedtime Glucos Sul 7wjd-Zgk-Lduuv-C-Mn (Glucosamine Chondroitin) 550-30-1 mg Capsule Active 1 [...] DAILY August 30, 2014 10:14am Start: 08-30-2014 L.Acidoph, Par acasei,B. Lactis Active 1 EACH PO DAILY August 29, 2014 11:00pm Start: 08-30-2014 L.Acidoph, Par acasei,B. Lactis Active 1 EACH PO [...] 10 mg by mouth daily at bedtime. Methylcellulose (14 sources) Start: take 2 tablets by mouth once daily [...] 2 tablets by mo uth once daily. modafinil 100 mg oral tablet (20 sources) Sympathomimetic-like Agent Start: 10-22-2024 Modafinil 100 mg tablet Active mg PO October 22, 2024 12:00am Start: 09-20-2024 End: 10-20-2024 take 0.5 tablet by mouth once daily in the morning as needed Modafinil 100 mg tablet Discontinued 100 mg PO EVERY MORNING as needed for attention disorder 30 30 0 September 20, 2024 1:04pm October 19, 2024 12:00am October 20, 2024 12:07am 1/2 tab (50mg) daily as needed. (No more than 5 days a week). Start: 09-07-2024 End: 09-20-2024 take 1 tablet by mouth once daily in the morning as needed Modafinil 100 mg tablet Discontinued 100 mg PO EVERY MORNING as needed September 07, 2024 12:00am September 20, 2024 1:07pm Start: 10-18-2022 End: 08-15-2024 take 1 tablet by mouth once daily as needed Modafinil 100 mg tablet Discontinued 50 mg PO daily as needed for hypersomnia 30 0 July 16, 2024 12:00am August 14, 2024 12:00am August 15, 2024 12:11am No more than 5 days weekly Comment on above: TAKE 1/2 to 1 TABLET BY MOUTH EVERY DAY as needed for hypersomnia Multivitamin With Folic Acid (Thera) 1 TABLET tablet (20 sources) Start: take 1 tablet by mouth once daily [...] TWICE A DAY August 19, 2021 11:00pm norethindrone acetate 5 mg oral tablet (11 sources) Start: 08-26-2021 take 1 tablet by mouth twice daily Norethindrone Acetate (Aygestin) 5 mg tablet Active 5 MG PO TWICE A DAY August 25, 2021 11:00pm OLANZapine 2.5 mg oral tablet (7 sources) Atypical Antipsychotic Start: 09-24-2024 take 1 tablet by mouth at bedtime Olanzapine 2.5 mg tablet Active 2.5 mg PO AT BEDTIME September 24, 2024 12:00am omeprazole 40 mg delayed release oral capsule (20 sources) Proton Pump Inhibitor Start: 09-07-2024 take 1 capsule by mouth [...] mo uth once daily. polyethylene glycol 3350 89206 mg powder for oral solution (20 sources) Osmotic Laxative Start: take 17 g by mouth once daily as needed Polyethylene Glycol 3350 17 gram powder in packet Active 17 g PO daily as needed August 13, 2024 12:00am Start: 08-13-2024 End: 11-14-2023 take 17 g by mouth once daily as needed Polyethylene Glycol 3350 17 gram powder in packet Active 17 g PO daily as needed August 13, 2024 12:00am polyethylene gly col 3350 (MIRALAX) 17 gram packet Take 17 g by mouth once daily as needed for constipation. Dissolve dose in 4 - 8 ounces of liquid and take as directed. Active predniSONE 20 mg oral tablet (20 sources) Start: 09-07-2024 take 5 mg by mouth once daily as needed Prednisone 20 mg tablet Active 5 mg PO daily as needed September 07, 2024 2:57pm Start: 08-27-2024 take 3 tablets by mo [facility] once daily predniSONE (DELTASONE) 5 mg tablet [...] take 9 mg by mouth once daily NE EDNISONE ORAL Take 9 mg by mouth once daily. Active take 9 mg by mouth once daily NE EDNISONE ORAL Take 9 mg by mouth [...] Take 8.6 mg by mouth once daily. traMADol hydrochloride 50 mg oral tablet (20 sources) Opioid Agonist Start: 09-20-2024 End: 10-13-2024 take 1 tablet by mouth four times daily Tramadol 50 mg tablet Active 50 mg PO .qid 120 30 0 October 13, 2024 11:15am November 11, 2024 12:00am Start: 09-07-2024 End: 09-24-2024 take 1 tablet by mouth every six hours as needed Tramadol 25 mg tablet Discontinued 25 mg PO EVERY 6 HOURS as needed September 07, 2024 12:00am September 24, 2024 2:14pm Start: 09-07-2024 take 1 tablet by natalie th every six hours as needed Tramadol 25 mg tablet Active 25 mg PO EVERY 6 HOURS as needed September 07, 2024 12:00am Start: 06-21-2024 End: 08-21-2024 take 1 tablet by mouth four times daily Tramadol 50 mg tablet Discontinued 50 mg PO .qid 120 30 0 July 22, 2024 9:58am August 20, 2024 12:00am August 21, 2024 12:14am pain Start: 03-28-2024 End: 06-18-2024 take 1 tablet by mouth four times daily Tramadol 50 mg tablet Discontinued 50 mg PO .qid 120 30 0 May 19, 2024 1:34pm June 17, 2024 [...] Start: 03-26-2018 Triamcinolone Acetonide (Nasacort Aq Nasal [place]) 1 SPRAY Nasal.Sry Active 2 SPRAY NASAL DAILY March 26, 2018 11:19am Start: 03-26-2018 Triamcinolone Acetonide (Nasacort Aq Nasal [place]) 1 SPRAY aerosol,spray Active 2 SPRAY NASAL NEEDED March 26, 2018 1:00am Start: 03-05-2016 End: 08-13-2024 Triamcinolone Acetonide (Ángel acort Aq Nasal [place]) 1 SPRAY aerosol,spray Discontinued 2 NMA NASAL [...] mg (1 pen) subcutaneously every 2 weeks. [id number] 200 actuat albuterol 0.09 mg/actuat metered dose [...] Discontinued 5 mg PO TWICE A DAY 1 September 18, 2022 12:00am August 13, 2024 2:28pm Comment on above: Take 1 tablet by natalie th twice daily. ascorbic acid 500 mg oral tablet (20 sources) Vitamin C Start: End: take 1 tablet by mouth once daily Ascorbic Acid (Vitamin C) (Vitamin C) 500 mg Tablet Discontinued 500 mg PO DAILY August 20, 2021 12:00am September 07, 2024 2:58pm Comment on above: Take 500 mg by mouth once daily. atorvastatin 10 mg oral tablet (5 sources) HMG-CoA Reductase Inhibitor Start: End: take 1 tablet by mouth [...] Ox 200 mg calcium- 50 mg Tablet (20 sources) Start: 08-20-2021 End: 08-13-2024 Calcium Carb And Citrat-Mag Ox 200 mg calcium- 50 mg Tablet Discontinued 1 {tbl} PO DAILY August 20, 2021 12:00am August 13, 2024 2:28pm Start: 08-20-2021 Calcium Carb A nd Citrat-Mag Ox 200 mg calcium- 50 mg Tablet Active 1 {tbl} PO DAILY August 20, 2021 12:00am cetirizine hydrochloride 10 mg oral tablet (20 sources) Histamine-1 Receptor Antagonist Start: 08-05-2011 End: 09-07-2024 take 1 tablet by mouth once daily Cetirizine 10 mg Tablet Discontinued 10 mg PO DAILY March 06, 2022 1:00am September 07, 2024 2:59pm Comment on above: Take 1 tablet by natalie once daily. ciprofloxacin 500 mg oral tablet (3 sources) Quinolone Antimicrobial Start: 08-13-2021 End: 08-20-2021 take 1 tablet by mouth every twelve hours ciprofloxacin HCl (CIPRO) 500 mg tablet Take 1 tablet by mouth every 12 hours for 7 days. 14 tablet 0 08/13/2021 08/15/2021 Discontinued Comment on above: Take 1 tablet by natalie every 12 hours for 7 days. diphenhydrAMINE [...] Discontinued Start: 08-30-2014 take [address] capsule [address] [facility] once daily Docusate Sodium (Colace) 100 MG capsule Active 100 MG PO DAILY August 29, 2014 11:00pm Comment on above: Take 1 capsule by [facility] twice daily as needed for Constipation. escitalopram 10 mg oral tablet (20 sources) Serotonin Reuptake Inhibitor Start: 02-02-20 End: 09-08-19 take 1 tablet by mouth once daily Escitalopram Oxalate (Lexapro) 10 mg Tablet Discontinued 10 mg PO DAILY August 20, 2021 12:00am September 07, 2024 2:59pm Comment on above: Take 1 tablet by [facility] once daily. estradiol 0.1 mg/ml vaginal cream (20 sources) Estrogen Start: 03-21-19 End: 08-14-19 Estradiol (Estrace) 0.01 % (0.1 mg/gram) cream Discontinued 1 g VAGINAL EVERY OTHER DAY as needed for DRYNESS 42.5 3 April 30, 2024 3:19pm August 13, 2024 [...] 09/26/2020 02/26/2021 Discontinued Start: 08-30-2014 End: 03-21-2023 Estradiol (Estrace Vaginal C ream) 42.5 GM cream Discontinued 1 g VAGINAL EVERY OTHER DAY as needed for DRYNESS August 30, 2014 12:00am March 21, 2023 4:02pm End: 01-02-2022 estradiol (ESTRACE VAGINAL V AGINAL) [...] Take 1 tablet by natalie th twice daily. folic acid 1 mg oral tablet (5 sources) Start: 0 End: 1 take 3 tablets by mouth once daily folic acid 1 mg tablet Take 3 tablets by mouth once daily. 270 tablet 3 10/27/2020 01/30/2021 Discontinued Start: 08-30-2014 take 1 mg by mouth once daily Folic Acid Active 1 MG PO DAILY@0800 August 30, 2014 10:14am furosemide 20 mg oral tablet (20 sources) Loop Diuretic Start: 2021 End: 09-07-2024 take 1 tablet by mouth every other day Furosemide (Lasix) 20 mg Tablet Discontinued 20 mg PO EVERY OTHER DAY August 20, 2021 12:00am September 07, 2024 3:00pm Start: 09-13-2020 End: 03-14-2021 take 1 tablet [...] tablet by natalie th every other day. glucosamine/msm/ch ondroitin A (GLUCOSAMINE-CHOND R-MSM ORAL) (11 sources) End: 07-09-2021 take 1 capsule by mouth once daily glucosamine/msm/chondr oitin A ([id number]-HIQPAZ-LF M ORAL) Take 1 capsule by mouth once daily. 07/09/2021 Discontinued (Erroneous entry) End: 07-09-2021 take 1 capsule by mouth once daily glucosamine/msm/chondroitin A ([id number]-[id number]-BKG ORAL) Take 1 capsule by mouth once daily. 0 07/09/2021 Discontinued (Erroneous entry) take 1 capsule by mo uth once daily glucosamine/msm/chondroitin A (TKRWQBQEQQZ-ZFYBRT-IBD ORAL) Take 1 capsule by mouth once daily. 0 Active Comment on above: Take 1 capsule by mo uth once daily. Handicapped placcard (20 sources) Start: 04-22-2022 Handicapped placcard Active 0 .ROUTE .COMPLEX 1 0 April 22, 2022 1:00am 1 each; 5 years. Expires 03/22/27. Start: 04-22-[address] Active 0 .ROUTE .COMPLEX 1 April 22, 2022 1:00am 1 each; 5 years. Expires 03/22/27. Start: 04-22-[address] Active 0 .ROUTE .COMPLEX 1 April 22, 2022 12:00am 1 each; 5 [...] Comment on above: Take 1 tablet by [facility] two times a day. inFLIXimab-abda 200 [...] Comment on above: Take 1 tablet by [facility] twice daily for 7 days. 10 ml [...] on above: Zippered compression stockings.- 1 pair. methenamine hippurate 1000 mg oral tablet (20 sources) Start: End: Methenamine Hippurate (Hiprex) 1 gram Tablet Discontinued 1 g PO TWICE A DAY March 06, 2022 1:00am August 13, 2024 2:29pm Comment on above: Take 1 tablet by natalie th twice daily with meals. methotrexate 2.5 mg oral tablet (5 sources) [...] MG PO Q7D August 30, 2014 10:14am 24 hr metoprolol succinate 25 mg extended release oral tablet (20 sources) beta-Adrenergic Nahun Start: 07-13-2021 End: 09-07-2024 take 1 tablet by mouth once daily Metoprolol Succinate 25 mg Tablet Extended Release 24 Hr Discontinued 25 mg PO DAILY August 20, 2021 12:00am September 07, 2024 3:00pm Start: 03-14-2021 metoprolol tar trate, short acting, [...] 1 tablet by natalie th once daily. miSOPROStol 0.2 mg oral tablet (3 sources) [...] 2 tablets vaginally qhs before the procedure MULTIVITAMIN TAB (20 sources) Start: 07-09-2021 End: 09-21-2024 take 1 tablet by mouth once daily MULTIVITAMIN TAB Take 1 tablet by mouth once daily. 0 07/09/2021 09/21/2024 Discontinued Start: 07-09-2021 take 1 tablet by natalie [...] 1 tablet by natalie th once daily. Nirmatrelvir-Ritonavir (20 sources) Start: 10-18-2021 End: 08-13-2024 Nirmatrelvir-Ritonavir (Paxlovid (Eua)) 300 mg (150 mg x 2)-100 mg tablets,dose pack Discontinued 0 PO .COMPLEX October 18, 2021 12:00am August 13, 2024 2:29pm take TWO 150 mg tablets of nirmatrelvir with ONE 100 mg tablet of ritonavir twice daily for 5 days Start: 10-18-2021 End: 08-13-2024 Nirmatrelvir-Ritonavir (Paxl ovid (Eua)) 300 mg (150 mg x 2)-100 [...] of ritonavir twice daily for 5 days nitrofurantoin, macrocrystals 25 mg / nitrofurantoin, monohydrate 75 mg oral capsule (20 sources) Nitrofuran Antibacterial Start: 09-14-2024 End: 09-24-2024 take 1 capsule by mouth twice daily at mealtime Nitrofurantoin Monohyd/M-Cryst (Macrobid) 100 mg capsule Discontinued 100 mg PO TWICE A DAY 14 7 0 September 14, 2024 12:00am September 24, 2024 2:26pm must administer with a meal/food Start: 08-31-2021 End: 09-20-2021 take 1 capsule [...] Comment on above: Take 1 capsule by [facility] twice daily with meals for 7 days. Take [address] [facility] twice daily with meals for 5 days. Take [address] [facility] twice daily for 5 days. Take 1 capsule [address] [facility] twice daily for 10 days. perflutren lipid microspheres 1.3 mL in NaCl (PF) 0.9% 10 mL injection (DEFINITY) (10 sources) Start: 09-06-2020 End: 07-09-2021 perflutren lipid microspheres 1.3 mL in NaCl [...] 08/18/2021 Start: 06-17-2021 take [address] [facility] every eight hours as needed phenazopyridine (PYRIDIUM) 100 mg tablet Take 2 tablets by mouth three times daily as needed. 6 tablet 0 06/17/2021 Active Comment on above: Take [address] [facility] three times daily as needed. Take 1 tablet by [facility] three times daily as needed for [...] 3 MG tablet Active 1 MG PO SUMOWEAugust 29, 2014 11:00pm Comment on above: 2 mg every Tue; 1 mg all other days 100 ml zoledronic acid 0.05 mg/ml injection (1 source) Bisphosphonate Start: 12-11-2023 End: 12-11-2023 5 mg, INTRAVENOUS, at 200 mL/hr, Administer over 30 Minutes, ONCE, 1 dose, On Shamiak 12/11/23 at 0900, Hazardous Potential Reproductive Risk Drug: Use appropriate PPE. Problems Active Problems Problem Classification Problem Date Documented Da te Episodic/Chronic Abdominal pain (20 sources) Abdominal pain; Translations: [Unspecified abdominal pain] Onset: 6 Resolved: 2 Episodic Biliary tract disease (20 sources) Biliary [...] Resolved: 2 Episodic Cardiac dysrhythmias (20 sources) Paroxysmal atrial fibrillation; [...] disease (2 sources) Atherosclerotic heart disease of [place] coronary artery without angina pectoris; Translations: [Atherosclerotic heart disease of [place] coronary artery without angina pectoris] Onset: 5 Chronic Deficiency and other anemia (20 sources) Iron deficiency anemia due to blood loss; Translations: [Iron deficiency anemia secondary to blood loss (chronic)] Onset: 3 Chronic Deficiency and other anemia (1 source) Iron deficiency anemia secondary to blood loss (chronic); Translations: [Iron deficiency anemia due to chronic blood loss] Onset: 3 Chronic Deficiency and other anemia (20 sources) Anemia; Translations: [Anemia, unspecified] Onset: 2 08-13-2021 Episodic Diabetes mellitus without complication (1 source) [...] [Vitamin D deficiency, unspecified] Onset: 5 Chronic Open wounds of extremities (8 sources) Tear of skin; Translations: [Laceration without foreign body of right elbow, initial encounter] 09-14-2024 Episodic Osteoarthritis (20 sources) Bilateral shoulder osteoarthritis; Translations: [Primary osteoarthritis, right shoulder] Onset: 1 07-25-2020 Chronic Osteoporosis (20 sources) Senile osteoporosis; Translations: [Age-related osteoporosis without current pathological fracture] Onset: 4 11-14-2023 Chronic Other aftercare (20 sources) Anticoagulant effect; Translations: [skilled nursing (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 anticoagulants] 08-08-2019 Episodic Other aftercare (2 sources) Device in situ; Translations: [Encounter for adjustment and management of vascular access device] 09-24-2022 Episodic Other aftercare (4 sources) Drug therapy finding; Translations: [termite helper (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 systemic steroids] 06-06-2023 Episodic [...] fecal abnormalities] 02-24-2024 Episodic Other gastrointestinal disorders (18 sources) Altered bowel function; Translations: [Change in bowel habit] 09-07-2024 Episodic Other infections; including parasitic (3 sources) H/O: infectious disease; Translations: [Personal history of other infectious and parasitic diseases] Episodic Other infections; including parasitic (1 source) Personal history of other infectious and parasitic diseases; Translations: [History of ESBL E. coli infection] Onset: 2 Episodic Other injuries and conditions due to external causes (1 source) Encounter for examination and observation following other accident; Translations: [Encounter for examination and observation following other accident] Onset: 5 Episodic Other liver diseases (20 sources) Cirrhosis [...] Onset: 1 02-09-2021 Chronic Other liver diseases (16 sources) Hepatic sclerosis; Translations: [Hepatic sclerosis] 08-13-2024 [...] part of head, initial encounter] 08-08-2019 Episodic Thyroid disorders (7 sources) Hypothyroidism; Translations: [Hypothyroidism, unspecified] 09-22-2024 Chronic Unclassified (1 source) Non-Chemotherapy Treatment Onset: 4 Unclassified (5 sources) S52.602A - Unspecified fracture of lower end of left ulna, initial encounter for closed fracture Unclassified (1 source) Esophagitis, unspecified without bleeding; Translations: [Esophagitis, unspecified without bleeding] Onset: 5 Urinary tract infections (20 sources) Acute cystitis; Translations: [Acute cystitis without hematuria] Onset: 1 Resolved: 5 07-08-2021 Episodic Viral infection (20 sources) Disease caused by 2019-nCoV; Translations: [COVID-19] Onset: 8 Resolved: 3 10-18-2021 Episodic Past or Other Problems Problem Classification Problem Date Documented Da te Episodic/Chronic Acute posthemorrhagic anemia (20 sources) Acute posthemorrhagic anemia; Translations: [Acute posthemorrhagic anemia] Onset: 1 Resolved: 1 01-14-2021 Episodic Allergic reactions (20 sources) Radiation-induced dermatosis; Translations: [Other skin changes due to chronic exposure to nonionizing radiation] Onset: 6 Resolved: 5 02-17-2012 Episodic Cardiac dysrhythmias (20 sources) Palpitations; Translations: [Palpitations] Onset: 6 Resolved: 2 02-17-2012 Episodic Deficiency and other anemia (2 sources) Anemia, unspecified; Translations: [Anemia, unspecified] Onset: 4 Episodic Fever of unknown origin (20 sources) [...] sources) Long-term current use of anticoagulant; Translations: [skilled nursing (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 anticoagulants] Onset: 5 03-22-2019 [...] 5 Episodic Other gastrointestinal disorders (1 source) Diarrhea, unspecified; Translations: [Diarrhea, unspecified] Onset: 5 Episodic Other gastrointestinal disorders (1 [...] 4 Episodic Residual codes; unclassified (1 source) Family history of diabetes mellitus; Translations: [Family history of diabetes mellitus] Onset: 5 Episodic Residual codes; unclassified (1 source) Edema, [...] encounter] Onset: 6 Resolved: 2 02-17-2012 Episodic Results Test Name Value Interpretation Reference Range Facility Forearm 2 Viewson 10-22-2024 Forearm 2 Views [facility] [address] [place] [id number] Forearm 2 Views MR#: [id number] Acct: [id number] Name: CHRISTIAN LANDRUM Rep #: [id number] : 1935 F 89 From: Mauro reich MD PCP: OLIVE Puckett Status: DEP AMB Study: Forearm 2 Views Date of Exam: 10/22/24 Exam# [id number] Ordering Dr: Carmella Deluca WATER TREATMENT PLANT OPERATORLisaC PROCEDURE: FOREARM 2 VIEWS 10/22/2024 REASON FOR EXAM: FX F/U TECHNIQUE: FOREARM 2 VIEWS Laterality: Left forearm. COMPARISON: Prior study dated September 24, 2024 FINDINGS: Bones: Healed fracture of the distal ulnar shaft. Alignment is maintained. Joints: Unremarkable Soft tissues: Mild residual soft tissue swelling Other: RAD/Forearm 2 Views IMPRESSION: Heel transverse fracture of the distal ulnar shaft. The alignment is maintained. Reading Location: [id number] CC: OLIVE Horner; OLIVE Deluca Personnel Research Psychologist: Signed Normal [facility] Orthopedic Visit Reporton Orthopedic Visit Report [facility] [address] [place] [address] [address] [place] [address] OFFICE VISIT Date of Service: 10/22/24 MR#: [id number] Acct: [id number] Name: CHRISTIAN LANDRUM Rep #: [id number] : 1935 Provider: OLIVE manzo Age/Sex: 89/F Location: [facility] Status: Signed Intake Vital Signs 09/14/24 05:45 10/22/24 13:55 Height 5 ft 4 in 5 ft 4 in Weight: 177 lb BMI 30.4 Intake Visit Reasons: LEFT ULNA Chief Complaint: Left ulna follow up Accompanied by: Daughter Is patient in pain?: No Allergies DESMOND Inhibitors Allergy (Verified 10/22/24 14:00) Unknown adhesive Allergy (Verified 10/22/24 14:00) Unknown cyclobenzaprine HCl (From Flexeril) Allergy (Verified 10/22/24 14:00) Unknown diclofenac sodium (From Arthrotec) Allergy (Verified 10/22/24 14:00) Unknown hydrochlorothiazide Allergy (Verified 10/22/24 14:00) Unknown lisinopril (From Zestril) Allergy (Verified 10/22/24 14:00) Unknown metronidazole (From Flagyl) Allergy (Verified 10/22/24 14:00) Unknown misoprostol (From Arthrotec) Allergy (Verified 10/22/24 14:00) Unknown naproxen Allergy (Verified 10/22/24 14:00) Unknown paroxetine HCl (From Paxil) Allergy (Verified 10/22/24 14:00) Unknown prednisolone acetate (From Blephamide) Allergy (Verified 10/22/24 14:00) Unknown sulfacetamide sodium (From Blephamide) Allergy (Verified 10/22/24 14:00) Unknown Medications ???Medication ???Instructions ???Recorded ???Confirmed ???Type diclofenac sodium 1 % topical gel 100 g TP PRN PRN Pain 03/26/18 History (Voltaren) acetaminophen 325 mg tablet 650 mg PO Q6H PRN Pain 08/20/21 History (Tylenol) guaifenesin 100 mg/5 mL oral liquid 200 mg PO Q4H PRN Cough 2 10/22/24 History Handicapped placcard See Rx Instructions .Route 3 10/22/24 Rx .COMPLEX #1 unit polyethylene glycol 3350 17 gram 17 g PO QDAY PRN 08/13/24 10/22/24 History oral powder packet carboxymethylcellulose sodium 1 % 1 drp ophthalmic (eye) 4-6XD PRN 09/07/24 10/22/24 History eye drops (Artificial Tears (carboxymethylcellulose)) cetirizine 10 mg tablet 10 mg PO QDAY PRN 09/07/24 5 History copper gluconate 2 mg capsule 2 mg PO QDAY 09/07/24 10/22/24 His tory denosumab 60 mg/mL subcutaneous 60 mg subcut [id number] 09/07/2411/08 History syringe (Prolia) escitalopram oxalate 10 mg tablet 10 mg PO QDAY 09/07/24 10/22/24 H istory ferrous gluconate 324 mg (37.5 mg 324 mg PO QDAY 09/07/24 10/22/24 History iron) tablet fluticasone propionate 50 2 spray intranasal QDAY 09/07/24 0 10/22/24 History mcg/actuation nasal spray,suspension (Flonase Allergy Relief) furosemide 20 mg tablet (Lasix) 20 mg PO Q OTHER DAY 09/07/2411/08 History gabapentin 300 mg capsule 300 mg PO QHS 09/07/24 10/22/24 Hi story levothyroxine 25 mcg capsule 25 mcg PO QDAY 09/07/24 10/22/24 H istory methenamine hippurate 1 gram tablet 1 g PO BID 09/07/24 10/22/24 Hi story metoprolol succinate 25 mg 25 mg PO QDAY 09/07/24 10/22/24 Hi story tablet,extended release 24 hr omeprazole 40 mg capsule,delayed 40 mg PO QDAY 09/07/24 10/22/24 Hi story release prednisone 20 mg tablet 5 mg PO QDAY PRN 09/07/24 10/22/24 History sennosides 8.6 mg-docusate sodium 1 tab-cap PO QHS 09/07/24 5 History 50 mg capsule (Senna Plus) ascorbate calcium (vitamin C) 500 500 mg PO QDAY 09/24/24 10/22/24 History mg tablet calcium carbonate 600 mg PO BID 09/24/24 10/22/24 Hi story cholecalciferol (vitamin D3) 10 10 mcg PO QDAY 09/24/24 10/22/24 H istory mcg (400 unit) capsule olanzapine 2.5 mg tablet 2.5 mg PO QHS 09/24/24 10/22/24 Hi story tramadol 50 mg tablet 50 mg PO .qid 30 days #120 tabs 10/22/24 Rx modafinil 100 mg tablet mg PO 10/22/24 10/22/24 History Have you fallen in the past [...] Breast CA Surgical History History of esophagogastroduodenoscopy (more content not included)... Normal [facility] OT General Evaluationon 09-16 OT General Evaluation [facility] Occupational Therapy [facility] [address] [place] [address]. [address] [place] [address] / REHABILITATION SERVICES INITIAL EVALUATION MR#: [id number] Acct: [id number] Name: CHRISTIAN LANDRUM Rep #: [id number] : 1935 89 From: Cely JOHNSON/MAMADOU Alarcon Referring Dr.: OLIVE Deluca Status: REG RCR Insurance: MEDICARE PART A B Eval Date: ANTHEM Patient's Visit Information Visit Information Visit Information: CHRISTIAN LANDRUM is a 89 year old F, referred to Occupational Therapy by OLIVE Waters, with a diagnosis of lower end ulnar fx.. Date of Evaluation: 10/13/24 Occupational Therapist: Cely Capone, ELIZABETH/Agnes, MARCINT Subjective Subjective: This 89 year old female was seen for OT eval with dx of left distal ulna fx- pt states she had a fall at her [place] when she was getting out of the shower. This happened Aug 10 2024. Pt states she went for x rays on Aug 13 2024. pt arrives to day for custom/ removable short arm brace and recommendations for weaning and OT at [facility]. pt arrives 9 weeks and 5 days out from date of dx and casting. pt states she lives in [facility] use of rollator and shower bench- since fall pt has been in WC ( pt is doing Physical therapy) ROM ROM Comments: pt demo with left forearm supination and pronation wfl - and no reports of pain . left wrist 45/40 right 50/50 pt demo full composite fist Strength Client Support Associate: right 35# left NT Sensation Sensation Comments: denies Quick DASH-Disab of Arm,Shoulder Hand Quick DASH Score: 45.4525 Goals Goal:: pt will report return of using left UE for bathing/dressing and daily tasks by d/c Rehabilitation General Assessment: pt arrives 9 weeks and 5 days out from fx stabilization . Pt demo with healing fx and limited use of left UE with ADLs. Pt would benefit from short arm splint for tsf, and while sleeping until pt returns for what was recommended at 4 weeks from her last ortho apt. today therapist herb. custom orthosis. therapist ed. pt and made rec. for [facility] to have pt wear orthosis with her physical therapy for ambulation with rollator/ tsf and night- off with seated tasks as eating, playing bingo or reading. OT is rec. therapy 2x week for 4 weeks to improve pts functional strength of left UE for ADLs. transition to d/c splint in about 2 weeks following confirmation of healed fx on x valle ( Oct.22 possibly). Rehabilitation Potential: Good Anticipated Interventions Anticipated Interventions: Strengthening, Orthoses, Education re assistive Equipment, Education re Diagnosis and Caregiver Training Visit Plan Frequency: 1-2x /Week Duration: 4 Weeks General Plan: pt to undergo OT at [facility] 2x week for 4 weeks to improve pts functional use of left UE with daily tasks. therapist ed. pt to wear splint with tsf, the physical therapy she is having to strengthen her legs, and while sleeping. pt able to have splint off with seated activity as eating or bathing or other tasks she participates in at a table top. therapist rec.d light strengthening with use of putty and 1-2#. pt was to schedule for x-rays 4 weeks. ( aprox Oct 22). once x ray is cleared would d/c splint. and return to use as tolerated. TEXT: Thank you for the opportunity to evaluate your patient. For Medicare and Medicare HMO plans, please review the plan of care and approve it. It will need to be FAXED BACK to us at [phone] for Medicare purposes. Please let me know if there are questions or concerns regarding this plan of care. Physician Signature: Date: 10/13/24 1639 CC: OLIVE Horner; OLIVE Deluca MK Signed For Medicare only, by signing this I certify the plan of care. _ Physicians Signature Date Normal [facility] Absolute lymphocyte countOrd ered By: Payam Reyna on 10-04-2024 Lymphocytes Auto (Unsp spec) [#/Vol] 0.75 10*3/uL Low 0.83-4.51 [facility] Absolute neutrophil countOrd ered By: Jasmichaelgarfield Herronrejialyssa on 10-04-2024 Neutrophils (Bld) [#/Vol] 4.1 10*3/uL 2.0-7.7 [facility] Anion gap in Serum or Plasma Ordered By: Payam Reyna on 10-04-2024 Anion gap [Moles/Vol] 11 mmol/L 5-15 [facility] Automated lymphocyte count a s percentage of total leukocytesOrdered By: Payam Reyna on 10-04-2024 Lymphocytes/100 WBC Auto (Unsp spec) 13.2 % Low 19-41 [facility] BUN/creatinine ratioOrdered By: Payam Reyna on 10-04-2024 Urea nitrogen/Creatinine [Mass ratio] 25.0 mg/mg High 10-20 [facility] Basophil percentageOrdered B y: Payam Reyna on 10-04-2024 Basophils/100 WBC (Bld) 0.7 % 0-1 [facility] Bilirubin, totalOrdered By: Payam Herronrejialyssa on 10-04-2024 Bilirubin [Mass/Vol] 0.90 mg/dL 0.00-1.30 [facility] Carbon dioxide, total [Moles /volume] in Central venous bloodOrdered By: Payam Reyna on 10-04-2024 CO2 [Moles/Vol] 22.9 mmol/L 21.0-32.0 [facility] Chloride assayOrdered By: Angelito merylshine Reyna on 10-04-2024 Chloride [Moles/Vol] 109 mmol/L High 98-108 [facility] Eosinophil percentageOrdered By: arline Herronrejialyssa on 10-04-2024 Eosinophils/100 WBC (Bld) 1.9 % 0-5 [facility] Erythrocyte distribution wid th ratioOrdered By: Payam Herronrejialyssa on 10-04-2024 Erythrocyte distribution width (RBC) [Ratio] 15.7 % High 11.6-14.6 [facility] Erythrocyte distribution wid th standard deviationOrdered By: Payam Reyna on 10-04-2024 Erythrocyte distribution width (RBC) [Ratio] 59.2 fl High 35.1-43.9 [facility] Glomerular filtration rate ( GFR) estimation/1.73 sq m using serum, plasma, or whole bOrdered By: Payam Reyna on 10-04-2024 GFR/1.73 sq M.predicted among non-blacks MDRD (S/P/Bld) [Vol rate/Area] 87 mL/min/{1.73_m2} >60 [facility] Comment on above: mL/min/1.73m2 CKD-EP I Creatinine Equation (2020) Hematocrit Auto (Bld) [Volum e fraction]Ordered By: [facility] Reyna on 10-04-2024 Hematocrit (Bld) [Volume fraction] 36.4 % Low 37-47 [facility] Hemoglobin measurementOrdere d By: Payam Reyna on 10-04-2024 Hemoglobin (Bld) [Mass/Vol] 12.3 g/dL 12.0-15.0 [facility] Immature granulocytes/100 WB C Auto (Bld)Ordered By: Payam Reyna on 10-04-2024 Immature granulocytes/100 WBC (Bld) 0.500 % 0.0-0.9 [facility] Comment on above: IG% - Immature Granu locytes (promyelocytes, myelocytes and metamyelocytes) > 1% indicates that a LEFT SHIFT is Present. Laboratory - Chemistry and C hemistry - challengeOrdered By: Payam Reyna on 10-04-2024 AST [Catalytic activity/Vol] 35 U/L High <32 [facility] MCV (mean corpuscular volume ) determinationOrdered By: Payam Reyna 10-04-2024 MCV (RBC) [Entitic vol] 101.4 fL High 81-99 [facility] Mean corpuscular hemoglobin (MCH) determinationOrdered By: Payam Reyna 10-04-2024 MCH (RBC) [Entitic mass] 34.3 pg High 27.0-32.0 [facility] Mean corpuscular hemoglobin concentration (MCHC) determinationOrdered By: Payam Reyna 10-04-2024 MCHC (RBC) [Mass/Vol] 33.8 g/dL 32-36 [facility] Mean platelet volume determi nationOrdered By: Payam Reyna on 10-04-2024 Platelet mean volume (Bld) [Entitic vol] 10.4 fL 6.2-12.0 [facility] Monocyte percentageOrdered B y: Payam Reyna on 10-04-2024 Monocytes/100 WBC (Bld) 11.1 % High 0-10 [facility] Neutrophil percentageOrdered By: Payam Reyna on 10-04-2024 Neutrophils/100 WBC (Bld) 72.6 % High 47-70 [facility] Nucleated red blood cell per centageOrdered By: Payam Reyna on 10-04-2024 Nucleated RBC/100 WBC (Bld) [Ratio] 0 % 0-5 [facility] Platelet countOrdered By: Angelito Reyna on 10-04-2024 Platelets (Bld) [#/Vol] 101 10*3/uL Low 150-450 [facility] Potassium measurement (mass/ volume)Ordered By: Payam Reyna on 10-04-2024 Potassium (Unsp spec) [Mass/Vol] 3.8 mmol/L 3.3-5.1 [facility] RBC Auto (Bld) [#/Vol]Ordere d By: Payam Reyna on 10-04-2024 RBC (Bld) [#/Vol] 3.59 10*6/uL Low 4.2-5.4 [facility] Serum creatinine measurement (mass/volume)Ordered By: Payam Reyna on 10-04-2024 Creatinine [Mass/Vol] 0.59 mg/dL Low 0.70-1.20 [facility] Serum globulin measurementOr dered By: Payam Reyna on 10-04-2024 Globulin (S) [Mass/Vol] 3.1 g/dL 2.2-4.2 [facility] Serum glucose measurement (m ass/volume)Ordered By: Payam Reyna on 10-04-2024 Glucose [Mass/Vol] 72 mg/dL 70-99 [facility] Serum or plasma alanine cheatham otransferase (ALT) measurementOrdered By: Jamisongarfield Herronrejialyssa on 10-04-2024 ALT [Catalytic activity/Vol] 40 U/L High <35 [facility] Serum or plasma albumin yonatan urement (mass/volume)Ordered By: Payam Gopalrejialyssa on 10-04-2024 Albumin [Mass/Vol] 3.1 g/dL Low 3.4-4.8 [facility] Serum or plasma albumin/glob ulin mass ratioOrdered By: Angelitomerylmichaelgarfield Herronrejialyssa on 10-04-2024 Albumin/Globulin [Mass ratio] 1.0 {ratio} 0.9-2.4 [facility] Serum or plasma alkaline shannon sphatase measurementOrdered By: Angelitomerylmichaelgarfield Herronrejialyssa on 10-04-2024 ALP [Catalytic activity/Vol] 63 U/L 35-104 [facility] Serum or plasma calcium yonatan urement (mass/volume)Ordered By: Jamisongarfield Herronrejialyssa on 10-04-2024 Calcium [Mass/Vol] 9.4 mg/dL 7.6-11.0 [facility] Serum or plasma urea nitroge n measurement (mass/volume)Ordered By: Payam Gopalrejialyssa on 10-04-2024 Urea nitrogen [Mass/Vol] 15 mg/dL 4-19 [facility] Sodium levelOrdered By: Angelitomeryl shine Gopalrejialyssa on 10-04-2024 Sodium [Moles/Vol] 142 mmol/L 133-145 [facility] Total proteinOrdered By: Fredy ritter Gopalrejialyssa on 10-04-2024 Protein [Mass/Vol] 6.2 g/dL 5.9-8.4 [facility] White blood cell (WBC) count Ordered By: Angelitomerylshine Gopalrejialyssa on 10-04-2024 WBC (Bld) [#/Vol] 5.7 10*3/uL 4.4-11.0 [facility] Forearm 2 Viewson 09-24-[address] [facility] Imaging Services [address] [place], [place] [id number] Forearm 2 Views MR#: [id number] Acct: [id number] Name: CHRISTIAN LANDRUM Rep #: [id number] : 1935 F 89 From: Wilfred Brothers MD PCP: OLIVE Puckett Status: DEP AMB Study: Forearm 2 Views Date of Exam: 09/24/24 Exam# [id number] Ordering Dr: Carmella Deluca EXAM: XR Left Forearm, 2 Views CLINICAL INDICATION: FX F/U TECHNIQUE: Frontal and lateral views of the left forearm. COMPARISON: XR Forearm dated 08/16/2024 FINDINGS: BONES/JOINTS: Healing fracture of the ulnar radius. No dislocation. SOFT TISSUES: Soft tissue swelling. RAD/Forearm 2 Views IMPRESSION: Healing fracture of the ulnar radius. Reading [facility] CC: OLIVE Horner; OLIVE Deluca Personnel Research Psychologist: Signed Normal [facility] Orthopedic Visit Reporton Orthopedic Visit Report [facility] [address] [place] [address] OFFICE VISIT Date of Service: 09/24/24 MR#: [id number] Acct: [id number] Name: CHRISTIAN LANDRUM J Rep #: [id number] : 1935 Provider: OLIVE manzo Age/Sex: 89/F Location: [email or web address] Status: Signed Intake Vital Signs 09/03/24 14:12 Height 5 ft 5 in Intake Visit Reasons: LEFT ULNA Chief Complaint: Left Ulna Allergies DESMOND Inhibitors Allergy (Verified 09/24/24 14:08) Unknown adhesive Allergy (Verified 09/24/24 14:08) Unknown cyclobenzaprine HCl (From Flexeril) Allergy (Verified 09/24/24 14:08) Unknown diclofenac sodium (From Arthrotec) Allergy (Verified 09/24/24 14:08) Unknown hydrochlorothiazide Allergy (Verified 09/24/24 14:08) Unknown lisinopril (From Zestril) Allergy (Verified 09/24/24 14:08) Unknown metronidazole (From Flagyl) Allergy (Verified 09/24/24 14:08) Unknown misoprostol (From Arthrotec) Allergy (Verified 09/24/24 14:08) Unknown naproxen Allergy (Verified 09/24/24 14:08) Unknown paroxetine HCl (From Paxil) Allergy (Verified 09/24/24 14:08) Unknown prednisolone acetate (From Blephamide) Allergy (Verified 09/24/24 14:08) Unknown sulfacetamide sodium (From Blephamide) Allergy (Verified 09/24/24 14:08) Unknown Medications ???Medication ???Instructions ???Recorded ???Confirmed ???Type diclofenac sodium 1 % topical gel 100 g TP PRN PRN Pain 03/26/18 History (Voltaren) acetaminophen 325 mg tablet 650 mg PO Q6H PRN Pain 08/20/21 History (Tylenol) guaifenesin 100 mg/5 mL oral liquid 200 mg PO Q4H PRN Cough 2 09/24/24 History Handicapped placcard See Rx Instructions .Route 3 09/24/24 Rx .COMPLEX #1 unit polyethylene glycol 3350 17 gram 17 g PO QDAY PRN 08/13/24 09/24/24 History oral powder packet carboxymethylcellulose sodium 1 % 1 drp ophthalmic (eye) 4-6XD PRN 09/07/24 09/24/24 History eye drops (Artificial Tears (carboxymethylcellulose)) cetirizine 10 mg tablet 10 mg PO QDAY PRN 09/07/24 5 History copper gluconate 2 mg capsule 2 mg PO QDAY 09/07/24 09/24/24 His tory denosumab 60 mg/mL subcutaneous 60 mg subcut [id number] 09/07/2402/08 History syringe (Prolia) escitalopram oxalate 10 mg tablet 10 mg PO QDAY 09/07/24 09/24/24 H istory ferrous gluconate 324 mg (37.5 mg 324 mg PO QDAY 09/07/24 09/24/24 History iron) tablet fluticasone propionate 50 2 spray intranasal QDAY 09/07/24 0 09/24/24 History mcg/actuation nasal spray,suspension (Flonase Allergy Relief) furosemide 20 mg tablet (Lasix) 20 mg PO Q OTHER DAY 09/07/2409/14 History gabapentin 300 mg capsule 300 mg PO QHS 09/07/24 09/24/24 Hi story levothyroxine 25 mcg capsule 25 mcg PO QDAY 09/07/24 09/24/24 H istory methenamine hippurate 1 gram tablet 1 g PO BID 09/07/24 09/24/24 Hi story metoprolol succinate 25 mg 25 mg PO QDAY 09/07/24 09/24/24 Hi story tablet,extended release 24 hr omeprazole 40 mg capsule,delayed 40 mg PO QDAY 09/07/24 09/24/24 Hi story release prednisone 20 mg tablet 5 mg PO QDAY PRN 09/07/24 09/24/24 History sennosides 8.6 mg-docusate sodium 1 tab-cap PO QHS 09/07/24 5 History 50 mg capsule (Senna Plus) modafinil 100 mg tablet 100 mg PO QAM PRN attention 09/24/24 Rx disorder 30 days #30 tabs tramadol 50 mg tablet 50 mg PO .qid 30 days #120 tabs 09/24/24 Rx ascorbate calcium (vitamin C) 500 500 mg PO QDAY 09/24/24 09/24/24 History mg tablet calcium carbonate 600 mg PO BID 09/24/24 09/24/24 Hi story cholecalciferol (vitamin D3) 10 10 mcg PO QDAY 09/24/24 09/24/24 H istory mcg (400 unit) capsule olanzapine 2.5 mg tablet 2.5 mg PO QHS 09/24/24 09/24/24 Hi story Have you fallen in the [...] small bowel Hx of oophorectomy Hx of tonsillecto (more content not included)... Normal [facility] C-REACTIVE PROTEINon 025 CRP [Mass/Vol] mg/dL [facility] - 0.9 mg/dL [facility] CBC W Auto Differential pane l (Bld)on 09-21-2024 Basophils (Bld) [#/Vol] 0.04 10*3/uL [facility] Basophils/100 WBC (Bld) 0.6 % [facility] Differential cell count method Nom (Bld) Auto [facility] Eosinophils (Bld) [#/Vol] 0.04 10*3/uL [facility] Eosinophils/100 WBC (Bld) 0.6 % [facility] Erythrocyte distribution width (RBC) [Ratio] 15.9 % High 11.5 - 15.0 % [facility] Hematocrit (Bld) [Volume fraction] 38 % 36.0 - 46.0 % [facility] Hemoglobin (Bld) [Mass/Vol] 12.9 g/dL 11.5 - 15.5 g/dL [facility] Immature granulocytes (Bld) [#/Vol] 0.03 10*3/uL [facility] Immature granulocytes/100 WBC (Bld) 0.4 % [facility] Interpretation and review of laboratory results Abnormal [facility] Lymphocytes (Bld) [#/Vol] 0.39 10*3/uL Low [facility] Lymphocytes/100 WBC (Bld) 5.7 % [facility] MCH (RBC) [Entitic mass] 33.8 pg 26.0 - 34.0 pg [facility] MCHC (RBC) [Mass/Vol] 33.9 g/dL 30.5 - 36.0 g/dL [facility] MCV (RBC) [Entitic vol] 99.5 fL 80.0 - 100.0 fL [facility] Monocytes (Bld) [#/Vol] 0.48 10*3/uL [facility] Monocytes/100 WBC (Bld) 7 % [facility] Neutrophils (Bld) [#/Vol] 5.9 10*3/uL [facility] Neutrophils/100 WBC (Bld) 85.7 % [facility] Nucleated RBC (Bld) [#/Vol] NINF [facility] Nucleated RBC/100 WBC (Bld) [Ratio] 0 % /100 WBC [facility] Platelet mean volume (Bld) [Entitic vol] 9.2 fL 9.0 - 12.7 fL [facility] Platelets (Bld) [#/Vol] 119 10*3/uL Low [facility] RBC (Bld) [#/Vol] 3.82 10*6/uL Low 3.90 - 5.2 0 m/uL [facility] WBC (Bld) [#/Vol] 6.88 10*3/uL [facility] Comprehensive metabolic 2000 panelOrdered By: Pam Tate on 09-21-2024 Albumin [Mass/Vol] 3.4 g/dL Low 3.9 - 4.9 g/dL [facility] ALP [Catalytic activity/Vol] 68 U/L 34 - 123 U/L [facility] ALT [Catalytic activity/Vol] 50 U/L High 7 - 38 U/L [facility] Anion gap [Moles/Vol] 11 mmol/L 8 - 15 mmol/L [facility] AST [Catalytic activity/Vol] 46 U/L High 13 - 35 U/L [facility] Bilirubin [Mass/Vol] 0.9 mg/dL 0.2 - 1 .3 mg/dL [facility] Calcium [Mass/Vol] 9.3 mg/dL 8.5 - 10. 2 mg/dL [facility] Chloride [Moles/Vol] 104 mmol/L 98 - 10 7 mmol/L [facility] CO2 [Moles/Vol] 22 mmol/L 22 - 30 mmol/L [facility] Creatinine [Mass/Vol] 0.57 mg/dL Low 0.58 - 0.96 mg/dL [facility] GFR/1.73 sq M.predicted among non-blacks MDRD (S/P/Bld) [Vol rate/Area] 88 mL/min/{1.73_m2} - PINF [facility] Comment on above: Estimated Glomerular Filtration Rate [...] not accurately reflect actual GFR. Glucose [Mass/Vol] 196 mg/dL High 74 - 99 mg/dL [facility] Comment on above: The [place] Diab[employer] s Association (ADA) provides guidance for [...] Standards of Medical Care in Diabetes 2016, [place] [employer]. Diabetes Care. 2016.39(Suppl 1). Interpretation and review of laboratory results Abnormal [facility] Potassium [Moles/Vol] 4.3 mmol/L 3.7 - 5.1 mmol/L [facility] Protein [Mass/Vol] 6.5 g/dL 6.3 - 8.0 g/dL [facility] Sodium [Moles/Vol] 137 mmol/L 136 - 144 mmol/L [facility] Urea nitrogen [Mass/Vol] 13 mg/dL 7 - 21 mg/dL [facility] ESR Westergren method (Bld) [Velocity]on 09-21-2024 ESR (Bld) [Velocity] 29 mm/h High [facility] Interpretation and review of laboratory results Abnormal [facility] Iron and Iron binding capaci ty panelon 09-21-2024 Iron [Mass/Vol] 113 ug/dL 41 - 186 ug/dL [facility] Iron binding capacity [Mass/Vol] 268 ug/dL 232 - 386 ug/dL [facility] Iron/TIBC [Molar ratio] 42.2 % 15.0 - 57.0 % [facility] No Panel Informationon 09-21 Interpretation and review of laboratory results Normal [facility] Urine Cultureon 09-17-2024 [facility] Urine Culture Urine Culture Escherichia coli [place] Count >100,000 Klebsiella pneumoniae sp pneum Klebsiella pneumoniae sp pneum Escherichia coli: REACTION Ampicillin Islt JEMAL >=32 R Ampicillin+Sulbac Islt JEMAL 16 Cefepime Islt JEMAL <=0.12 S cefTRIAXone Islt JEMAL <=0.25 S Ciprofloxacin Islt JEMAL >=4 R B-Lactamase Extended Susc Islt NEG Gentamicin Islt JEMAL <=1 S levoFLOXacin Islt JEMAL >=8 R Meropenem Islt JEMAL <=0.25 S Nitrofurantoin Islt JEMAL <=16 S Pip+Tazo Islt JEMAL <=4 S TMP SMX Islt JEMAL <=20 S Klebsiella pneumoniae sp pneum: REACTION Ampicillin Islt JEMAL >=32 R Ampicillin+Sulbac Islt JEMAL 4 Cefepime Islt JEMAL <=0.12 S cefTRIAXone Islt JEMAL <=0.25 S Ciprofloxacin Islt JEMAL <=0.06 S B-Lactamase Extended Susc Islt NEG Gentamicin Islt JEMAL <=1 S levoFLOXacin Islt JEMAL <=0.12 S Meropenem Islt JEMAL <=0.25 S Nitrofurantoin Islt JEMAL 64 I Pip+Tazo Islt JEMAL <=4 S TMP SMX Islt JEMAL <=20 S Normal [facility] Comment on above: Performed By: #### M 100.2200 ####[facility] [id number] [facility] [place], [place], [id number] Bilirubin Test strip Ql (U)O rdered By: Sung Torres on 09-14-2024 Bilirubin Ql (U) Negative Negative [facility] Brain/Head without Contrasto n 09-14-2024 Brain/Head without Contrast [facility] Imaging Services [address] [place], [place] [address] Brain/Head without Contrast MR#: [id number] Acct: [id number] Name: CHRISTIAN LANDRUM Rep #: [id number] : 1935 F 89 From: Cathy Brito MD PCP: OLIVE Puckett Status: REG ER Study: Brain/Head without Contrast Date of Exam: 04/10 Exam# [id number] Ordering Dr: Sung Torres DO EXAM: NONCONTRAST CT SCAN OF THE HEAD CLINICAL HISTORY: Fall, hit back of head COMPARISON: December 17, 2018, Aug 07 2019 TECHNIQUE: Serial axial series through the head were obtained without contrast. 2-D coronal and sagittal reformats were then obtained. DLP = 428.74 mGy-cm FINDINGS: Brain: There is no acute large territorial infarct, intracranial hemorrhage, midline shift or mass effect. There are atherosclerotic vascular calcifications involving the bilateral carotid siphons. The sella and pineal gland regions appear unremarkable. There is no evidence of cerebellar tonsillar herniation. Ventricles: There is no acute hydrocephalus. Basilar cisterns are patent. Paranasal sinuses: Well-aerated Mastoid air cells: Well-aerated. Calvarium: The bony calvarium is intact. Orbits: The bilateral globes are symmetric, without retrobulbar compressive mass lesion or hemorrhage. CT/Brain/Head without Contrast IMPRESSION: No acute intracranial pathology. Reading Location: [facility] CC: OLIVE Torres DO Personnel Research Psychologist: Signed Normal [facility] Elbow min 3 Viewson 09-15-[address] [facility] Imaging Services [address] [place] [address] Elbow min 3 Views MR#: [id number] Acct: [id number] Name: CHRISTIAN LANDRUM Rep #: [id number] : 1935 F 89 From: Cathy Brito MD PCP: OLIVE Puckett Status: REG ER Study: Elbow min 3 Views Date of Exam: 09/14/24 Exam# [id number] Ordering Dr: Sung Torres DO PROCEDURE: ELBOW MIN 3 VIEWS 09/14/2024 REASON FOR EXAM: PAIN TECHNIQUE: ELBOW MIN 3 VIEWS COMPARISON: None FINDINGS: There is no fracture or dislocation identified. There is no visible joint effusion. Mineralization is normal. There is no visible atherosclerosis. RAD/Elbow min 3 Views IMPRESSION: No fracture or dislocation is identified. Reading Location: [facility] CC: OLIVE Torres DO Personnel Research Psychologist: Signed Normal [facility] Emergency Department Summary on 09-14-2024 Emergency Department Summary [facility] Medical Records Department [address] [place] [address] Emergency Department Summary 09/14/24 MR#: [id number] Acct: [id number] Name: CHRISTIAN LANDRUM Rep #: [id number] : 1935 89 From: Sung Torres DO PCP: SAVANNAH PuckettC Status:DEP ER Location: ED HPI History of Present Illness Chief Complaint: Fall Informant: patient, family and SNF Narrative Narrative: Patient is an 89-year-old [place] [facility] [place] with history of proximal A-fib currently on metoprolol but no anticoagulation as well as hypothyroidism and depression. Patient and daughter state that she also has difficulty ambulating. Patient reports that she was trying to get up this morning and lost her balance and fell landing on her right side. She denies any loss of consciousness. group home states that the nurse had walked by the patient's room and she was in bed and then roughly 15 minutes later was passing by again and noticed her on the ground and therefore patient could only have been down for 15 to 20 minutes. The patient complains of pain in the right elbow and they have noticed a skin tear at that site. Daughter states patient has been more confused recently and there is concern for UTI. Therefore because of the fall and concern for underlying trauma and infection she was sent in for evaluation [facility] Medical History Loss of hearing Wears glasses [...] fever History of atrial fibrillation Breast CA Home Medications ???Medication ???Instructions ???Recorded ???Last Taken ???Type diclofenac sodium 1 % topical gel 100 g TP PRN PRN Pain 03/26/18 Un known History (Voltaren) acetaminophen 325 mg tablet 650 mg PO Q6H PRN Pain 08/20/21 Un known History (Tylenol) guaifenesin 100 mg/5 mL oral liquid 200 mg PO Q4H PRN Cough 2 Unknown History Handicapped placcard See Rx Instructions .Route 3 Unknown Rx .COMPLEX #1 unit polyethylene glycol 3350 17 gram 17 g PO QDAY PRN 08/13/24 Unknown History oral powder packet carboxymethylcellulose sodium 1 % 1 drp ophthalmic (eye) 4-6XD PRN 09/07/24 Unknown History eye drops (Artificial Tears (carboxymethylcellulose)) cetirizine 10 mg tablet 10 mg PO QDAY PRN 09/07/24 Unknown History copper gluconate 2 mg capsule 2 mg PO QDAY 09/07/24 Unknown Hist ory denosumab 60 mg/mL subcutaneous 60 mg subcut [id number] 09/07/24 Unk nown History syringe (Prolia) escitalopram oxalate 10 mg tablet 10 mg PO QDAY 09/07/24 Unknown Hi story ferrous gluconate 324 mg (37.5 mg 324 mg PO QDAY 09/07/24 Unknown H istory iron) tablet fluticasone propionate 50 2 spray intranasal QDAY 09/07/24 U nknown History mcg/actuation nasal spray,suspension (Flonase Allergy Relief) furosemide 20 mg tablet (Lasix) 20 mg PO Q OTHER DAY 09/07/24 Unkn own History gabapentin 300 mg capsule 300 mg PO QHS 09/07/24 Unknown His tory levothyroxine 25 mcg capsule 25 mcg PO QDAY 09/07/24 Unknown Hi story methenamine hippurate 1 gram tablet 1 g PO BID 09/07/24 Unknown His tory metoprolol succinate 25 mg 25 mg PO QDAY 09/07/24 Unknown His tory tablet,extended release 24 hr modafinil 100 mg tablet 100 mg PO QAM PRN 09/07/24 Unknown History omeprazole 40 mg capsule,delayed 40 mg PO QDAY 09/07/24 Unknown His tory release prednisone 20 mg tablet 5 mg PO QDAY PRN 09/07/24 Unknown History sennosides 8.6 mg-docusate sodium 1 tab-cap PO QHS 09/07/24 Unknown History 50 mg capsule (Senna Plus) tramadol 25 mg tablet 25 mg PO Q6H PRN 09/07/24 Unknown History nitrofurantoin 100 mg PO BID 7 days #14 caps 04/10 Unknown Rx monohydrate/macrocrystals 100 mg capsule (Macrobid) Allergy/AdvReac Type Severity Reaction Status Date / Time DESMOND Inhibitors Allergy Unknown Verified 09/14/24 05:40 adhesive Allergy Unknown Verified 09/14/24 05:40 cyclobenzaprine HCl (From Allergy Unknown Verified 09/14/24 05:40 Flexeril) diclofenac sodium (From Allergy Unknown Verified 09/14/24 05:40 Arthrotec) hydrochlorothiazide Allergy Unknown Verified 09/14/24 05:40 lisinopril (From Zestril) Allergy Unknown Verified 09/14/24 05:40 metronid (more content not included)... Normal [facility] Ketones Test strip Ql (U)Ord ered By: Sung Torres on 09-14-2024 Ketones Ql (U) 5 mg/dl High Negative [facility] Microscopic analysis of urin e for red blood cells (RBC)Ordered By: Sung Torres on 09-14-2024 Microscopic analysis of urine for red blood cells (RBC) 0-5 SEEN /hpf 0-5 [facility] Mucus LM Ql (Urine sed)Order ed By: Sung Torres on 09-14-2024 Mucus Ql (Urine sed) 0 SEEN /hpf [facility] Nitrite Test strip Ql (U)Ord ered By: Sung Torres on 09-14-2024 Nitrite Ql (U) Negative Negative [facility] Pelvis 1 or 2 Viewson 2024 [address] [facility] Imaging Services [address] [place] [address] Pelvis 1 or 2 Views MR#: [id number] Acct: [id number] Name: CHRISTIAN LANDRUM Rep #: [id number] : 1935 F 89 From: Cathy Brito MD PCP: OLIVE Puckett Status: REG ER Study: Pelvis 1 or 2 Views Date of Exam: 09/14/24 Exam# [id number] Ordering Dr: Sung Torres DO PROCEDURE: PELVIS 1 OR 2 VIEWS 09/14/2024 REASON FOR EXAM: PAIN TECHNIQUE: PELVIS 1 OR 2 VIEWS COMPARISON: None FINDINGS: There is no fracture identified. The SI joints are aligned. The sacral foramina appear intact. 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 Radiopaque sutures are noted in the mid pelvis. RAD/Pelvis 1 or 2 Views IMPRESSION: No fracture is identified. Reading Location: [facility] CC: WATER T[employer]ATMENT PLANT OPERATOR-C Galina Horner; Sung Torres DO Personnel Research Psychologist: Signed Normal [facility] Protein Test strip Ql (U)Ord ered By: Sung Torres on 09-14-2024 Protein Ql (U) 30 mg/dl High Negative [facility] Spine Cervical without Contr ason 09-14-2024 Spine Cervical without Contras [facility] Imaging Services [address] [place] [address] Spine Cervical without Contras MR#: [id number] Acct: [id number] Name: CHRISTIAN LANDRUM Rep #: [id number] : 1935 F 89 From: Cathy Brito MD PCP: OLIVE Puckett Status: REG ER Study: Spine Cervical without Contras Date of Exam: 0 09/14/24 Exam# [id number] Ordering Dr: Sung Torres DO PROCEDURE: SPINE CERVICAL WITHOUT CONTRAS 09/14/2024 REASON FOR EXAM: FALL Trauma TECHNIQUE: SPINE CERVICAL WITHOUT CONTRAS Coronal and Sagittal reconstruction series were provided. CONTRAST: None One or more dose reduction techniques were used (e.g., Automated exposure control, adjustment of the mA and/or kV according to patient size, use of iterative reconstruction technique. RADIATION DOSE SUMMARY: DLP: 1224.85 mGycm COMPARISON: August 07, 2019 FINDINGS: Visualized skull base and craniocervical junction demonstrate no evidence of fracture or dislocation. There is no evidence of cervical spine fracture. Alignment is normal. No soft tissue abnormality is seen. There is loss of disc height at each level. 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 Visualized portions of the lung apices demonstrate no evidence of pneumothorax. CT/Spine Cervical without Contras IMPRESSION: There is mild central canal stenosis at C4-5, secondary to disc and osteophyte protrusion, similar to the prior. There is no visible acute traumatic injury. Reading Location: [facility] CC: OLIVE Horner; Sung Torres DO Personnel Research Psychologist: Signed Normal [facility] Squamous epithelial cells de tection in urine sediment by light microscopyOrdered By: Sung Torres on 09-14-2024 Epithelial cells.squamous LM Ql (Urine sed) 0-5 SEEN /hpf 5-10 [facility] Urinalysis, Completeon 09-14 EPI,SQUAMOUS 0-5 SEEN Normal 5-10 [facility] Comment on above: Order Comment: GILBERTO CTOR TO SPECIFY Performed By: #### L 400.0001 ####[facility] [address] [place], [address] RBC 0-5 SEEN Normal 0-5 [facility] Comment on above: Order Comment: GILBERTO CTOR TO SPECIFY Performed By: #### L 400.0001 ####[facility] [address] [place], [address] BACTERIA 3+ /hpf Normal None Seen [facility] Comment on above: Order Comment: GILBERTO CTOR TO SPECIFY Performed By: #### L 400.0001 ####[facility] [address] [place], [address] WBC 10-25 SEEN Normal 0-5 [facility] Comment on above: Order Comment: GILBERTO CTOR TO SPECIFY Performed By: #### L 400.0001 ####[facility] [address] [place], [address] Mucus Ql (Urine sed) 0 SEEN Normal [facility] Comment on above: Order Comment: GILBERTO CTOR TO SPECIFY Performed By: #### L 400.0001 ####[facility] [address] [place], [address] Urine clarityOrdered By: Zander Torres on 09-14-2024 Clarity (U) Sl. Cloudy Clear [facility] Urine color determinationOrd ered By: Sung Torres on 09-14-2024 Color (U) Yellow Yellow [facility] Urine cultureOrdered By: Zander Torres on 09-14-2024 Bacteria identified Cx Nom (U) Escherichia coli Abnormal [facility] Bacteria identified Cx Nom (U) Klebsiella pneumoniae sp pneum Abnormal [facility] Urine glucose detectionOrder ed By: Sung Torres on 09-14-2024 Glucose Ql (U) Normal mg/dl Normal [facility] Urine leukocyte esterase det ection by dipstickOrdered By: Sung Torres on 09-14-2024 Leukocyte esterase Test strip Ql (U) 500 /ul High Negative [facility] Urine pHOrdered By: Sung canales on 09-14-2024 pH (U) 6.5 [pH] 5.0 - 8.0 [facility] Urine sediment bacteria coun t by microscopy (number/high power field)Ordered By: Sung Torres on 09-14-2024 Bacteria LM.HPF (Urine sed) [#/Area] 3 /[HPF] None Seen [facility] Urine specific gravity measu rementOrdered By: Sung Torres on 09-14-2024 Specific gravity (U) [Rel density] 1.015 1.002-1.030 [facility] Urine urobilinogen measureme ntOrdered By: Sung Torres on 09-14-2024 Urobilinogen Ql (U) 1 mg/dl High Normal [facility] White blood cell countOrdere d By: Sung Torres on 09-14-2024 White blood cell count 10-25 SEEN /hpf 0-5 [facility] Gastroenterology Visit Repor ton 09-07-2024 Gastroenterology Visit Report [facility] [address] [place] [address] OFFICE VISIT Date of Service: 09/07/24 MR#: [id number] Acct: [id number] Name: CHRISTIAN LANDRUM Rep #: [id number] : 1935 Provider: OLIVE agrawal Age/Sex: 89/F Location: [facility] Status: Signed Intake Vital Signs 08/18/24 14:34 [...] denosumab 60 mg/mL subcutaneous 60 mg subcut [id number] 09/07/24 History syringe (Prolia) escitalopram oxalate 10 [...] a bowel resection and fistula repair at [facility]. Is having fecal incontinence which is new. It's more of a smear and she wipes and wipes and wipes. [facility] Medical History Loss of hearing Wears glasses [...] esophagogastroduodenoscopy (E (more content not included)... Normal [facility] Orthopedic Visit Reporton Orthopedic Visit Report [facility] [address] [place] [address] OFFICE VISIT Date of Service: 09/03/24 MR#: [id number] Acct: [id number] Name: CHRISTIAN LANDRUM Rep #: [id number] : 1935 Provider: OLIVE manzo Age/Sex: 89/F Location: [facility] Status: Signed Intake Vital Signs 08/18/24 14:34 [...] decisions made (more content not included)... Normal [facility] Wrist min 3 Viewson 09-04-[address] W[address] [facility] Imaging Services [address] [place] [address] Wrist min 3 Views MR#: [id number] Acct: [id number] Name: CHRISTIAN LANDRUM Rep #: [id number] : 1935 F 89 From: Mallika wyatt MD PCP: Dr. Payam Reyna MD Status: DEP AMB Study: Wrist min 3 Views Date of Exam: 09/03/24 Exam# [id number] Ordering Dr: Carmella Deluca PROCEDURE: WRIST MIN [...] in the distal ulnar diaphysis. Reading Location: [place] [address] CC: WATER TREATMENT PLANT OPERATOR-Ana M Deluca; Dr. Payam Reyna MD Personnel Research Psychologist: Signed Normal [facility] Absolute lymphocyte countOrd ered By: Payam Reyna on 08-30-2024 Lymphocytes Auto (Unsp spec) [#/Vol] 0.95 10*3/uL 0.83-4.51 [facility] Absolute neutrophil countOrd ered By: Payam Reyna on 08-30-2024 Neutrophils (Bld) [#/Vol] 5.3 10*3/uL 2.0-7.7 [facility] Anion gap in Serum or Plasma Ordered By: Payam Reyna on 08-30-2024 Anion gap [Moles/Vol] 10 mmol/L 5-15 [facility] Automated lymphocyte count a s percentage of total leukocytesOrdered By: Payam Reyna on 08-30-2024 Lymphocytes/100 WBC Auto (Unsp spec) 13.2 % Low 19-41 [facility] BUN/creatinine ratioOrdered By: Payam Reyna on 08-30-2024 Urea nitrogen/Creatinine [Mass ratio] 30.3 mg/mg High 10-20 [facility] Basophil percentageOrdered B y: Payam Reyna on 08-30-2024 Basophils/100 WBC (Bld) 0.6 % 0-1 [facility] Bilirubin, totalOrdered By: Payam Reyna on 08-30-2024 Bilirubin [Mass/Vol] 1.04 mg/dL 0.00-1.30 [facility] Carbon dioxide, total [Moles /volume] in Central venous bloodOrdered By: Payam Reyna on 08-30-2024 CO2 [Moles/Vol] 25.2 mmol/L 21.0-32.0 [facility] Chloride assayOrdered By: Angelito Reyna on 08-30-2024 Chloride [Moles/Vol] 102 mmol/L 98-108 [facility] Eosinophil percentageOrdered By: Payam Reyna on 08-30-2024 Eosinophils/100 WBC (Bld) 1.5 % 0-5 [facility] Erythrocyte distribution wid th ratioOrdered By: Payam Reyna on 08-30-2024 Erythrocyte distribution width (RBC) [Ratio] 15.9 % High 11.6-14.6 [facility] Erythrocyte distribution wid th standard deviationOrdered By: Payam Reyna on 08-30-2024 Erythrocyte distribution width (RBC) [Ratio] 57.3 fl High 35.1-43.9 [facility] Glomerular filtration rate ( GFR) estimation/1.73 sq m using serum, plasma, or whole bOrdered By: Payam Reyna on 08-30-2024 GFR/1.73 sq M.predicted among non-blacks MDRD (S/P/Bld) [Vol rate/Area] 86 mL/min/{1.73_m2} >60 [facility] Comment on above: mL/min/1.73m2 CKD-EP I Creatinine Equation (2020) Hematocrit Auto (Bld) [Volum e fraction]Ordered By: Payam Reyna on 08-30-2024 Hematocrit (Bld) [Volume fraction] 37.5 % 37-47 [facility] Hemoglobin measurementOrdere d By: arline Reyna on 08-30-2024 Hemoglobin (Bld) [Mass/Vol] 12.5 g/dL 12.0-15.0 [facility] Immature granulocytes/100 WB C Auto (Bld)Ordered By: merylroyaltongarfield Reyna on 08-30-2024 Immature granulocytes/100 WBC (Bld) 0.600 % 0.0-0.9 [facility] Comment on above: IG% - Immature Granu locytes (promyelocytes, myelocytes and metamyelocytes) > 1% indicates that a LEFT SHIFT is Present. Laboratory - Chemistry and C hemistry - challengeOrdered By: Payam Reyna on 08-30-2024 AST [Catalytic activity/Vol] 34 U/L High <32 [facility] MCV (mean corpuscular volume ) determinationOrdered By: Payam Reyna 08-30-2024 MCV (RBC) [Entitic vol] 99.5 fL High 81-99 [facility] Mean corpuscular hemoglobin (MCH) determinationOrdered By: arline Reyna on 08-30-2024 MCH (RBC) [Entitic mass] 33.2 pg High 27.0-32.0 [facility] Mean corpuscular hemoglobin concentration (MCHC) determinationOrdered By: Payam Reyna on 08-30-2024 MCHC (RBC) [Mass/Vol] 33.3 g/dL 32-36 [facility] Mean platelet volume determi nationOrdered By: Payam Reyna on 08-30-2024 Platelet mean volume (Bld) [Entitic vol] 10.4 fL 6.2-12.0 [facility] Monocyte percentageOrdered B y: Payam Herronrejialyssa on 08-30-2024 Monocytes/100 WBC (Bld) 10.2 % High 0-10 [facility] Neutrophil percentageOrdered By: Payam Reyna on 08-30-2024 Neutrophils/100 WBC (Bld) 73.9 % High 47-70 [facility] Nucleated red blood cell per centageOrdered By: Payam Reyna on 08-30-2024 Nucleated RBC/100 WBC (Bld) [Ratio] 0 % 0-5 [facility] Platelet countOrdered By: Angelito Reyna on 08-30-2024 Platelets (Bld) [#/Vol] 104 10*3/uL Low 150-450 [facility] Potassium measurement (mass/ volume)Ordered By: Payam Reyna on 08-30-2024 Potassium (Unsp spec) [Mass/Vol] 4.2 mmol/L 3.3-5.1 [facility] RBC Auto (Bld) [#/Vol]Ordere d By: Payam Reyna on 08-30-2024 RBC (Bld) [#/Vol] 3.77 10*6/uL Low 4.2-5.4 [facility] Serum creatinine measurement (mass/volume)Ordered By: Payam Reyna on 08-30-2024 Creatinine [Mass/Vol] 0.62 mg/dL Low 0.70-1.20 [facility] Serum globulin measurementOr dered By: Payam Reyna on 08-30-2024 Globulin (S) [Mass/Vol] 3.0 g/dL 2.2-4.2 [facility] Serum glucose measurement (m ass/volume)Ordered By: Payam Reyna on 08-30-2024 Glucose [Mass/Vol] 75 mg/dL 70-99 [facility] Serum or plasma alanine cheatham otransferase (ALT) measurementOrdered By: Payam Reyna on 08-30-2024 ALT [Catalytic activity/Vol] 42 U/L High <35 [facility] Serum or plasma albumin yonatan urement (mass/volume)Ordered By: Payam Reyna on 08-30-2024 Albumin [Mass/Vol] 3.2 g/dL Low 3.4-4.8 [facility] Serum or plasma albumin/glob ulin mass ratioOrdered By: Angelitoarline Reyna on 08-30-2024 Albumin/Globulin [Mass ratio] 1.1 {ratio} 0.9-2.4 [facility] Serum or plasma alkaline shannon sphatase measurementOrdered By: Payam Reyna on 08-30-2024 ALP [Catalytic activity/Vol] 75 U/L 35-104 [facility] Serum or plasma calcium yonatan urement (mass/volume)Ordered By: Payam Reyna on 08-30-2024 Calcium [Mass/Vol] 9.3 mg/dL 7.6-11.0 [facility] Serum or plasma urea nitroge n measurement (mass/volume)Ordered By: Payam Reyna on 08-30-2024 Urea nitrogen [Mass/Vol] 19 mg/dL 4-19 [facility] Sodium levelOrdered By: Jas riojas Maribell on 08-30-2024 Sodium [Moles/Vol] 137 mmol/L 133-145 [facility] Total proteinOrdered By: Fredy ritter Maribell on 08-30-2024 Protein [Mass/Vol] 6.3 g/dL 5.9-8.4 [facility] White blood cell (WBC) count Ordered By: Payam Reyna on 08-30-2024 WBC (Bld) [#/Vol] 7.2 10*3/uL 4.4-11.0 [facility] Forearm 2 Viewson 08-18-[address] [facility] Imaging Services [address] [place], [place] [id number] Forearm 2 Views MR#: [id number] Acct: [id number] Name: CHRISTIAN LANDRUM Rep #: [id number] : 1935 F 89 From: Nic Ozuna MD PCP: Dr. Payam Reyna MD Status: DEP AMB Study: Forearm 2 Views Date of Exam: 08/18/24 Exam# [id number] Ordering Dr: Carmella Deluca PROCEDURE: FOREARM 2 VIEWS 08/18/2024 REASON FOR EXAM: FX F/U TECHNIQUE: 2 view(s) of the left forearm COMPARISON: Left forearm, 08/14/2019. FINDINGS: There is a healing greenstick fracture of the distal ulnar shaft. There is no significant angulation deformity. RAD/Forearm 2 Views IMPRESSION: Healing ulnar shaft fracture. Reading Location: [id number] CC: OLIVE Deluca; Dr. Payam Reyna MD Personnel Research Psychologist: Signed Normal [facility] Orthopedic Visit Reporton Orthopedic Visit Report [facility] [address] [place] [address] OFFICE VISIT Date of Service: 08/18/24 MR#: [id number] Acct: [id number] Name: CHRISTIAN LANDRUM Rep #: [id number] : 1935 Provider: OLIVE manzo Age/Sex: 89/F Location: [facility] Status: Signed Intake Vital Signs 08/13/24 13:10 [...] of mastectomy (more content not included)... Normal [facility] Forearm 2 Viewson 08-13-[address] [facility] Imaging Services [address] [place], [place] [address] Forearm 2 Views MR#: [id number] Acct: [id number] Name: CHRISTIAN LANDRUM Rep #: [id number] : 1935 F 89 From: Obdulia Snider MD PCP: Dr. Payam Reyna MD Status: DEP AMB Study: Forearm 2 Views Date of Exam: 08/13/24 Exam# [id number] Ordering Dr: Carmella Deluca PROCEDURE: FOREARM 2 VIEWS 08/13/2024 REASON FOR [...] the 1st carpometacarpal joint. Osteopenia. Reading Location: [facility] CC: WATER TREATMENT PLANT OPERATORWilfrido Deluca; Dr. Payam Reyna MD Personnel Research Psychologist: Signed Normal [facility] Humerus min 2 Viewson [address] [facility] Imaging [facility] [address] [place], [place] [id number] Humerus min 2 Views MR#: [id number] Acct: [id number] Name: CHRISTIAN LANDRUM Rep #: [id number] : 1935 F 89 From: Obdulia Snider MD PCP: Dr. Payam Reyna MD Status: DEP AMB Study: Humerus min 2 Views Date of Exam: 08/13/24 Exam# [id number] Ordering Dr: Carmella Deluca PROCEDURE: HUMERUS MIN [...] glenohumeral joint osteoarthrosis as above. Reading Location: [id number] CC: OLIVE Deluca; Dr. Payam Reyna MD Personnel Research Psychologist: Signed Normal [facility] Orthopedic Visit Reporton Orthopedic Visit Report [facility] [address] [place] [address] [address] [place] [address] OFFICE VISIT Date of Service: 08/13/24 MR#: [id number] Acct: [id number] Name: CHRISTIAN LANDRUM Rep #: [id number] : 1935 Provider: OLIVE manzo Age/Sex: 89/F Location: [facility] Status: Signed Intake Vital Signs 08/13/24 13:10 [...] provided and the decisions made by me, OLIVE Waters 08/13/24 1998. Part of today???s visit was documented by [...] bruising. Patient stays at facility and the WATER TREATMENT PLANT OPERATOR there today reports a portable x-ray showed [...] Wrist/Hand Peña (more content not included)... Normal [facility] CT Abd/Pelvis W/WO Contrasto n 08-06-2024 CT Abd/Pelvis W/WO Contrast [facility] Imaging Services [address] [place] [address] CT Abd/Pelvis W/WO Contrast MR#: [id number] Acct: [id number] Name: CHRISTIAN LANDRUM Rep #: [id number] : 1935 F 89 From: Mallika wyatt MD PCP: Dr. Payam Reyna MD Status: REG CLI Study: CT Abd/Pelvis W/WO Contrast Date of Exam: 07/16 06/08 Exam# [id number] Ordering Dr: Hiwot Abdullahi MD PROCEDURE: CT [...] the stomach suggestive of gastritis. Reading Location: [place] [address] CC: Dr. Payam Reyna MD; Dr. Hiwot Abdullahi MD Personnel Research Psychologist: Signed Normal [facility] Absolute lymphocyte countOrd ered By: Payam Reyna on 08-02-2024 Lymphocytes Auto (Unsp spec) [#/Vol] 0.96 10*3/uL 0.83-4.51 [facility] Absolute neutrophil countOrd ered By: Payam Reyna on 08-02-2024 Neutrophils (Bld) [#/Vol] 4.6 10*3/uL 2.0-7.7 [facility] Anion gap in Serum or Plasma Ordered By: Payam Reyna on 08-02-2024 Anion gap [Moles/Vol] 9 mmol/L 5-15 [facility] Automated lymphocyte count a s percentage of total leukocytesOrdered By: Payam Reyna on 08-02-2024 Lymphocytes/100 WBC Auto (Unsp spec) 15.0 % Low 19-41 [facility] BUN/creatinine ratioOrdered By: Payam Reyna on 08-02-2024 Urea nitrogen/Creatinine [Mass ratio] 27.8 mg/mg High 10-20 [facility] Basophil percentageOrdered B y: Payam Reyna on 08-02-2024 Basophils/100 WBC (Bld) 0.6 % 0-1 [facility] Bilirubin, totalOrdered By: Payam Reyna on 08-02-2024 Bilirubin [Mass/Vol] 0.73 mg/dL 0.00-1.30 [facility] Carbon dioxide, total [Moles /volume] in Central venous bloodOrdered By: Payam Reyna on 08-02-2024 CO2 [Moles/Vol] 23.8 mmol/L 21.0-32.0 [facility] Chloride assayOrdered By: Angelito Reyna on 08-02-2024 Chloride [Moles/Vol] 104 mmol/L 98-108 [facility] Eosinophil percentageOrdered By: arline Reyna on 08-02-2024 Eosinophils/100 WBC (Bld) 1.4 % 0-5 [facility] Erythrocyte distribution wid th ratioOrdered By: merylroyaltongarfield Reyna on 08-02-2024 Erythrocyte distribution width (RBC) [Ratio] 16.2 % High 11.6-14.6 [facility] Erythrocyte distribution wid th standard deviationOrdered By: merylroyaltongarfield Reyna on 08-02-2024 Erythrocyte distribution width (RBC) [Ratio] 58.4 fl High 35.1-43.9 [facility] Glomerular filtration rate ( GFR) estimation/1.73 sq m using serum, plasma, or whole bOrdered By: Payam Reyna on 08-02-2024 GFR/1.73 sq M.predicted among non-blacks MDRD (S/P/Bld) [Vol rate/Area] 87 mL/min/{1.73_m2} >60 [facility] Comment on above: mL/min/1.73m2 CKD-EP I Creatinine Equation (2020) Hematocrit Auto (Bld) [Volum e fraction]Ordered By: arline Reyna on 08-02-2024 Hematocrit (Bld) [Volume fraction] 36.7 % Low 37-47 [facility] Hemoglobin measurementOrdere d By: Payam Reyna on 08-02-2024 Hemoglobin (Bld) [Mass/Vol] 12.1 g/dL 12.0-15.0 [facility] Immature granulocytes/100 WB C Auto (Bld)Ordered By: Payam Reyna on 08-02-2024 Immature granulocytes/100 WBC (Bld) 0.800 % 0.0-0.9 [facility] Comment on above: IG% - Immature Granu locytes (promyelocytes, myelocytes and metamyelocytes) > 1% indicates that a LEFT SHIFT is Present. Laboratory - Chemistry and C hemistry - challengeOrdered By: Payam Reyna on 08-02-2024 AST [Catalytic activity/Vol] 33 U/L High <32 [facility] MCV (mean corpuscular volume ) determinationOrdered By: Payam Reyna on 08-02-2024 MCV (RBC) [Entitic vol] 98.4 fL 81-99 [facility] Mean corpuscular hemoglobin (MCH) determinationOrdered By: Payam Reyna on 08-02-2024 MCH (RBC) [Entitic mass] 32.4 pg High 27.0-32.0 [facility] Mean corpuscular hemoglobin concentration (MCHC) determinationOrdered By: Payam Reyna on 08-02-2024 MCHC (RBC) [Mass/Vol] 33.0 g/dL 32-36 [facility] Mean platelet volume determi nationOrdered By: Payam Reyna on 08-02-2024 Platelet mean volume (Bld) [Entitic vol] 9.4 fL 6.2-12.0 [facility] Monocyte percentageOrdered B y: Payam Reyna on 08-02-2024 Monocytes/100 WBC (Bld) 10.5 % High 0-10 [facility] Neutrophil percentageOrdered By: merylroyaltongarfield Reyna on 08-02-2024 Neutrophils/100 WBC (Bld) 71.7 % High 47-70 [facility] Nucleated red blood cell per centageOrdered By: Payam Reyna on 08-02-2024 Nucleated RBC/100 WBC (Bld) [Ratio] 0 % 0-5 [facility] Platelet countOrdered By: Angelito Reyna on 08-02-2024 Platelets (Bld) [#/Vol] 141 10*3/uL Low 150-450 [facility] Potassium measurement (mass/ volume)Ordered By: Payam Reyna on 08-02-2024 Potassium (Unsp spec) [Mass/Vol] 4.4 mmol/L 3.3-5.1 [facility] RBC Auto (Bld) [#/Vol]Ordere d By: Payam Reyna on 08-02-2024 RBC (Bld) [#/Vol] 3.73 10*6/uL Low 4.2-5.4 [facility] Serum creatinine measurement (mass/volume)Ordered By: Payam Reyna on 08-02-2024 Creatinine [Mass/Vol] 0.58 mg/dL Low 0.70-1.20 [facility] Serum globulin measurementOr dered By: Payam Reyna on 08-02-2024 Globulin (S) [Mass/Vol] 3.7 g/dL 2.2-4.2 [facility] Serum glucose measurement (m ass/volume)Ordered By: Payam Reyna on 08-02-2024 Glucose [Mass/Vol] 79 mg/dL 70-99 [facility] Serum or plasma alanine cheatham otransferase (ALT) measurementOrdered By: Payam Reyna on 08-02-2024 ALT [Catalytic activity/Vol] 34 U/L <35 [facility] Serum or plasma albumin yonatan urement (mass/volume)Ordered By: Payam Reyna on 08-02-2024 Albumin [Mass/Vol] 3.4 g/dL 3.4-4.8 [facility] Serum or plasma albumin/glob ulin mass ratioOrdered By: Payam Reyna on 08-02-2024 Albumin/Globulin [Mass ratio] 0.9 {ratio} 0.9-2.4 [facility] Serum or plasma alkaline shannon sphatase measurementOrdered By: Payam eRyna 08-02-2024 ALP [Catalytic activity/Vol] 63 U/L 35-104 [facility] Serum or plasma calcium yonatan urement (mass/volume)Ordered By: Payam Reyna 08-02-2024 Calcium [Mass/Vol] 9.2 mg/dL 7.6-11.0 [facility] Serum or plasma urea nitroge n measurement (mass/volume)Ordered By: Payam Reyna on 08-02-2024 Urea nitrogen [Mass/Vol] 16 mg/dL 4-19 [facility] Sodium levelOrdered By: Jas Reyna on 08-02-2024 Sodium [Moles/Vol] 137 mmol/L 133-145 [facility] Total proteinOrdered By: Fredyalyssa brookegarfield Reyna on 08-02-2024 Protein [Mass/Vol] 7.1 g/dL 5.9-8.4 [facility] White blood cell (WBC) count Ordered By: Payma Reyan on 08-02-2024 WBC (Bld) [#/Vol] 6.4 10*3/uL 4.4-11.0 [facility] Clostridium difficile detect ion by polymerase chain reactionOrdered By: Payam Reyna on 07-08-2024 C. difficile DNA DEMARCUS+probe Ql (Unsp spec) [facility] Stool lactoferrin detection by immunoassayOrdered By: Payam Reyna on 07-08-2024 Lactoferrin IA Ql (Stl) [facility] International normalized rat io (INR) calculationOrdered By: Payam Reyna on 07-07-2024 INR Coag (Bld) [Relative time] 1.2 {INR} [facility] Prothrombin timeOrdered By: Payam Reyna on 07-07-2024 PT Coag (PPP) [Time] 15.5 s High 11.7-14.9 [facility] T4 freeOrdered By: Payam Reyna on 07-07-2024 Free T4 [Mass/Vol] 0.80 ng/dL 0.76-1.46 [facility] TSH DL <= 0.005 mIU/L QnOrde red By: Payam Reyna on 07-07-2024 TSH Qn 1.430 uIU/mL 0.300-4.200 [facility] Absolute lymphocyte countOrd ered By: Payam Reyna on 07-05-2024 Lymphocytes Auto (Unsp spec) [#/Vol] 0.92 10*3/uL 0.83-4.51 [facility] Absolute neutrophil countOrd ered By: Payam Reyna on 07-05-2024 Neutrophils (Bld) [#/Vol] 4.1 10*3/uL 2.0-7.7 [facility] Anion gap in Serum or Plasma Ordered By: Payam Reyna on 07-05-2024 Anion gap [Moles/Vol] 9 mmol/L 5-15 [facility] Automated lymphocyte count a s percentage of total leukocytesOrdered By: Payam Reyna on 07-05-2024 Lymphocytes/100 WBC Auto (Unsp spec) 15.9 % Low 19-41 [facility] BUN/creatinine ratioOrdered By: Payam Reyna on 07-05-2024 Urea nitrogen/Creatinine [Mass ratio] 20.6 mg/mg High 10-20 [facility] Basophil percentageOrdered B y: Payam Reyna on 07-05-2024 Basophils/100 WBC (Bld) 0.5 % 0-1 [facility] Bilirubin, totalOrdered By: Jasroyaltongarfield Reyna on 07-05-2024 Bilirubin [Mass/Vol] 0.72 mg/dL 0.00-1.30 [facility] Carbon dioxide, total [Moles /volume] in Central venous bloodOrdered By: Payam Reyna on 07-05-2024 CO2 [Moles/Vol] 24.8 mmol/L 21.0-32.0 [facility] Chloride assayOrdered By: Angelito Reyna on 07-05-2024 Chloride [Moles/Vol] 103 mmol/L 98-108 [facility] Eosinophil percentageOrdered By: Payam Reyna on 07-05-2024 Eosinophils/100 WBC (Bld) 1.2 % 0-5 [facility] Erythrocyte distribution wid th ratioOrdered By: Payam Reyna on 07-05-2024 Erythrocyte distribution width (RBC) [Ratio] 15.9 % High 11.6-14.6 [facility] Erythrocyte distribution wid th standard deviationOrdered By: Payam Reyna on 07-05-2024 Erythrocyte distribution width (RBC) [Ratio] 55.2 fl High 35.1-43.9 [facility] Glomerular filtration rate ( GFR) estimation/1.73 sq m using serum, plasma, or whole bOrdered By: Payam Reyna on 07-05-2024 GFR/1.73 sq M.predicted among non-blacks MDRD (S/P/Bld) [Vol rate/Area] 87 mL/min/{1.73_m2} >60 [facility] Comment on above: mL/min/1.73m2 CKD-EP I Creatinine Equation (2020) Hematocrit Auto (Bld) [Volum e fraction]Ordered By: Payam Reyna on 07-05-2024 Hematocrit (Bld) [Volume fraction] 31.0 % Low 37-47 [facility] Hemoglobin A1c percentageOrd ered By: Payam Reyna on 07-05-2024 HbA1c (Bld) [Mass fraction] 5.0 % <5.7 [facility] Comment on above: Normal < 5.7 % Predi abetic 5.7 - 6.4 % Diabetic >or= 6.5 % Please note range changes. Hemoglobin measurementOrdere d By: Payam Reyna on 07-05-2024 Hemoglobin (Bld) [Mass/Vol] 10.3 g/dL Low 12.0-15.0 [facility] Immature granulocytes/100 WB C Auto (Bld)Ordered By: Payam Reyna on 07-05-2024 Immature granulocytes/100 WBC (Bld) 0.700 % 0.0-0.9 [facility] Comment on above: IG% - Immature Granu locytes (promyelocytes, myelocytes and metamyelocytes) > 1% indicates that a LEFT SHIFT is Present. Laboratory - Chemistry and C hemistry - challengeOrdered By: Payam Reyna on 07-05-2024 AST [Catalytic activity/Vol] 32 U/L <32 [facility] MCV (mean corpuscular volume ) determinationOrdered By: Payam Reyna on 07-05-2024 MCV (RBC) [Entitic vol] 95.7 fL 81-99 [facility] Mean corpuscular hemoglobin (MCH) determinationOrdered By: Payam Reyna on 07-05-2024 MCH (RBC) [Entitic mass] 31.8 pg 27.0-32.0 [facility] Mean corpuscular hemoglobin concentration (MCHC) determinationOrdered By: Payam Reyna on 07-05-2024 MCHC (RBC) [Mass/Vol] 33.2 g/dL 32-36 [facility] Mean platelet volume determi nationOrdered By: Payam Reyna on 07-05-2024 Platelet mean volume (Bld) [Entitic vol] 9.6 fL 6.2-12.0 [facility] Monocyte percentageOrdered B y: Payam Reyna on 07-05-2024 Monocytes/100 WBC (Bld) 11.3 % High 0-10 [facility] Neutrophil percentageOrdered By: Payam Reyna on 07-05-2024 Neutrophils/100 WBC (Bld) 70.4 % High 47-70 [facility] Nucleated red blood cell per centageOrdered By: Payam Reyna on 07-05-2024 Nucleated RBC/100 WBC (Bld) [Ratio] 0 % 0-5 [facility] Platelet countOrdered By: Angelito Reyna on 07-05-2024 Platelets (Bld) [#/Vol] 151 10*3/uL 150-450 [facility] Potassium measurement (mass/ volume)Ordered By: Payam Reyna on 07-05-2024 Potassium (Unsp spec) [Mass/Vol] 4.0 mmol/L 3.3-5.1 [facility] RBC Auto (Bld) [#/Vol]Ordere d By: Payam Reyna on 07-05-2024 RBC (Bld) [#/Vol] 3.24 10*6/uL Low 4.2-5.4 [facility] Serum creatinine measurement (mass/volume)Ordered By: Payam Reyna on 07-05-2024 Creatinine [Mass/Vol] 0.59 mg/dL Low 0.70-1.20 [facility] Serum globulin measurementOr dered By: Payam Reyna on 07-05-2024 Globulin (S) [Mass/Vol] 3.3 g/dL 2.2-4.2 [facility] Serum glucose measurement (m ass/volume)Ordered By: Payam Reyna on 07-05-2024 Glucose [Mass/Vol] 76 mg/dL 70-99 [facility] Serum or plasma alanine cheatham otransferase (ALT) measurementOrdered By: Payam Reyna on 07-05-2024 ALT [Catalytic activity/Vol] 23 U/L <35 [facility] Serum or plasma albumin yonatan urement (mass/volume)Ordered By: Payam Reyna on 07-05-2024 Albumin [Mass/Vol] 2.9 g/dL Low 3.4-4.8 [facility] Serum or plasma albumin/glob ulin mass ratioOrdered By: Payam Reyna on 07-05-2024 Albumin/Globulin [Mass ratio] 0.9 {ratio} 0.9-2.4 [facility] Serum or plasma alkaline shannon sphatase measurementOrdered By: Payam Reyna on 07-05-2024 ALP [Catalytic activity/Vol] 46 U/L 35-104 [facility] Serum or plasma calcium yonatan urement (mass/volume)Ordered By: Payam Reyna on 07-05-2024 Calcium [Mass/Vol] 8.9 mg/dL 7.6-11.0 [facility] Serum or plasma urea nitroge n measurement (mass/volume)Ordered By: Payam Reyna on 07-05-2024 Urea nitrogen [Mass/Vol] 12 mg/dL 4-19 [facility] Sodium levelOrdered By: Jas Reyna on 07-05-2024 Sodium [Moles/Vol] 137 mmol/L 133-145 [facility] Total proteinOrdered By: Fredy Reyna on 07-05-2024 Protein [Mass/Vol] 6.3 g/dL 5.9-8.4 [facility] White blood cell (WBC) count Ordered By: Payam Reyna on 07-05-2024 WBC (Bld) [#/Vol] 5.8 10*3/uL 4.4-11.0 [facility] Hemoglobin A1c percentageOrd ered By: Payam Reyna on 06-16-2024 HbA1c (Bld) [Mass fraction] 5.0 % Low >5.7 [facility] CBC W Auto Differential pane l (Bld)on 06-11-2024 Basophils (Bld) [#/Vol] [facility] Basophils/100 WBC (Bld) 0.3 % [facility] Differential cell count method Nom (Bld) Auto [facility] Eosinophils (Bld) [#/Vol] [facility] Eosinophils/100 WBC (Bld) 0.1 % [facility] Erythrocyte distribution width (RBC) [Ratio] 15.7 % High 11.5 - 15.0 % [facility] Hematocrit (Bld) [Volume fraction] 34.9 % Low 36.0 - 46.0 % [facility] Hemoglobin (Bld) [Mass/Vol] 11 g/dL Low 11.5 - 15.5 g/dL [facility] Immature granulocytes (Bld) [#/Vol] 0.06 10*3/uL [facility] Immature granulocytes/100 WBC (Bld) 0.8 % [facility] Interpretation and review of laboratory results Abnormal [facility] Lymphocytes (Bld) [#/Vol] 0.5 10*3/uL Low [facility] Lymphocytes/100 WBC (Bld) 7 % [facility] MCH (RBC) [Entitic mass] 30.6 pg 26.0 - 34.0 pg [facility] MCHC (RBC) [Mass/Vol] 31.5 g/dL 30.5 - 36.0 g/dL [facility] MCV (RBC) [Entitic vol] 97.2 fL 80.0 - 100.0 fL [facility] Monocytes (Bld) [#/Vol] 0.52 10*3/uL [facility] Monocytes/100 WBC (Bld) 7.3 % [facility] Neutrophils (Bld) [#/Vol] 6 10*3/uL [facility] Neutrophils/100 WBC (Bld) 84.5 % [facility] Nucleated RBC (Bld) [#/Vol] [facility] Nucleated RBC/100 WBC (Bld) [Ratio] 0 % /100 WBC [facility] Platelet mean volume (Bld) [Entitic vol] 9.8 fL 9.0 - 12.7 fL [facility] Platelets (Bld) [#/Vol] 141 10*3/uL Low [facility] RBC (Bld) [#/Vol] 3.59 10*6/uL Low 3.90 - 5.2 0 m/uL [facility] WBC (Bld) [#/Vol] 7.11 10*3/uL [facility] Comprehensive metabolic 2000 panelOrdered By: Pam Tate on 06-11-2024 Albumin [Mass/Vol] 3.5 g/dL Low 3.9 - 4.9 g/dL [facility] ALP [Catalytic activity/Vol] 64 U/L 34 - 123 U/L [facility] ALT [Catalytic activity/Vol] 26 U/L 7 - 38 U/L [facility] Anion gap [Moles/Vol] 11 mmol/L 8 - 15 mmol/L [facility] AST [Catalytic activity/Vol] 28 U/L 13 - 35 U/L [facility] Bilirubin [Mass/Vol] 0.6 mg/dL 0.2 - 1 .3 mg/dL [facility] Calcium [Mass/Vol] 9.1 mg/dL 8.5 - 10. 2 mg/dL [facility] Chloride [Moles/Vol] 104 mmol/L 98 - 10 7 mmol/L [facility] CO2 [Moles/Vol] 23 mmol/L 22 - 30 mmol/L [facility] Creatinine [Mass/Vol] 0.59 mg/dL 0.58 - 0.96 mg/dL [facility] GFR/1.73 sq M.predicted among non-blacks MDRD (S/P/Bld) [Vol rate/Area] 87 mL/min/{1.73_m2} - PINF [facility] Comment on above: Estimated Glomerular Filtration Rate [...] 99 mg/dL [facility] Comment on above: The [place] [employer] (ADA) provides guidance for [...] Standards of Medical Care in Diabetes 2016, [place] [employer]. Diabetes Care. 2016.39(Suppl 1). Interpretation and review of laboratory results Abnormal [facility] Potassium [Moles/Vol] 4.4 mmol/L 3.7 - 5.1 mmol/L [facility] Protein [Mass/Vol] 7.3 g/dL 6.3 - 8.0 g/dL [facility] Sodium [Moles/Vol] 138 mmol/L 136 - 144 mmol/L [facility] Urea nitrogen [Mass/Vol] 18 mg/dL 7 - 21 mg/dL [facility] Absolute lymphocyte countOrd ered By: Payam Reyna on 05-31-2024 Lymphocytes Auto (Unsp spec) [#/Vol] 1.03 10*3/uL 0.83-4.51 [facility] Absolute neutrophil countOrd ered By: Payam Reyna on 05-31-2024 Neutrophils (Bld) [#/Vol] 3.8 10*3/uL 2.0-7.7 [facility] Anion gap in Serum or Plasma Ordered By: Payam Reyna on 05-31-2024 Anion gap [Moles/Vol] 9 mmol/L 5-15 [facility] Automated lymphocyte count a s percentage of total leukocytesOrdered By: Payam Reyna on 05-31-2024 Lymphocytes/100 WBC Auto (Unsp spec) 18.6 % Low 19-41 [facility] BUN/creatinine ratioOrdered By: Payam Reyna on 05-31-2024 Urea nitrogen/Creatinine [Mass ratio] 23.4 mg/mg High 10-20 [facility] Basophil percentageOrdered B y: Payam Reyna on 05-31-2024 Basophils/100 WBC (Bld) 0.5 % 0-1 [facility] Bilirubin, totalOrdered By: arline Reyna on 05-31-2024 Bilirubin [Mass/Vol] 0.51 mg/dL 0.00-1.30 [facility] Carbon dioxide, total [Moles /volume] in Central venous bloodOrdered By: Payam Reyna on 05-31-2024 CO2 [Moles/Vol] 23.7 mmol/L 21.0-32.0 [facility] Chloride assayOrdered By: Angelito Reyna on 05-31-2024 Chloride [Moles/Vol] 105 mmol/L 98-108 [facility] Eosinophil percentageOrdered By: Payam Reyna on 05-31-2024 Eosinophils/100 WBC (Bld) 1.3 % 0-5 [facility] Erythrocyte distribution wid th (RBC) [Ratio]Ordered By: Payam Reyna on 05-31-2024 Erythrocyte distribution width (RBC) [Entitic vol] 56.2 fL High 35.1-43.9 [facility] Erythrocyte distribution wid th ratioOrdered By: Jasroyaltongarfield Reyna on 05-31-2024 Erythrocyte distribution width (RBC) [Ratio] 15.9 % High 11.6-14.6 [facility] Erythrocyte distribution wid th standard deviationOrdered By: arline Reyna on 05-31-2024 Erythrocyte distribution width (RBC) [Ratio] 56.2 fl High 35.1-43.9 [facility] GFR/1.73 sq M.predicted lei g non-blacks MDRD (S/P/Bld) [Vol rate/Area]Ordered By: Payam Reyna on 05-31-2024 Estimated GFR (MDRD) Non-Af Amer 85 >60 [facility] Comment on above: mL/min/1.73m2 CKD-EP I Creatinine Equation (2020) Glomerular filtration rate ( GFR) estimation/1.73 sq m using serum, plasma, or whole bOrdered By: Payam Reyna on 05-31-2024 GFR/1.73 sq M.predicted among non-blacks MDRD (S/P/Bld) [Vol rate/Area] 85 mL/min/{1.73_m2} >60 [facility] Comment on above: mL/min/1.73m2 CKD-EP I Creatinine Equation (2020) Hematocrit Auto (Bld) [Volum e fraction]Ordered By: Payam Reyna 05-31-2024 Hematocrit (Bld) [Volume fraction] 30.7 % Low 37-47 [facility] Hemoglobin measurementOrdere d By: Payam Reyna on 05-31-2024 Hemoglobin (Bld) [Mass/Vol] 9.7 g/dL Low 12.0-15.0 [facility] Immature granulocytes/100 WB C Auto (Bld)Ordered By: Payam Reyna on 05-31-2024 Immature granulocytes/100 WBC (Bld) 0.400 % 0.0-0.9 [facility] Comment on above: IG% - Immature Granu locytes (promyelocytes, myelocytes and metamyelocytes) > 1% indicates that a LEFT SHIFT is Present. Laboratory - Chemistry and C hemistry - challengeOrdered By: Payam Reyna on 05-31-2024 AST [Catalytic activity/Vol] 29 U/L <32 [facility] Lymphocytes Auto (Unsp spec) [#/Vol]Ordered By: Payam Reyna on 05-31-2024 Lymphocytes (Bld) [#/Vol] 1.03 10*3/uL 0.83-4.51 [facility] Lymphocytes/100 WBC Auto (Un sp spec)Ordered By: Payam Reyna on 05-31-2024 Lymphocytes/100 WBC (Bld) 18.6 % Low 19-41 [facility] MCV (mean corpuscular volume ) determinationOrdered By: Payam Reyna on 05-31-2024 MCV (RBC) [Entitic vol] 96.8 fL 81-99 [facility] Mean corpuscular hemoglobin (MCH) determinationOrdered By: Payam eRyna on 05-31-2024 MCH (RBC) [Entitic mass] 30.6 pg 27.0-32.0 [facility] Mean corpuscular hemoglobin concentration (MCHC) determinationOrdered By: Payam Reyna on 05-31-2024 MCHC (RBC) [Mass/Vol] 31.6 g/dL Low 32-36 [facility] Mean platelet volume determi nationOrdered By: Payam Reyna on 05-31-2024 Platelet mean volume (Bld) [Entitic vol] 9.8 fL 6.2-12.0 [facility] Monocyte percentageOrdered B y: Payam Reyna on 05-31-2024 Monocytes/100 WBC (Bld) 10.3 % High 0-10 [facility] Neutrophil percentageOrdered By: Angelitomerylshine Reyna on 05-31-2024 Neutrophils/100 WBC (Bld) 68.9 % 47-70 [facility] Nucleated red blood cell per centageOrdered By: Angelitomerylshine Gopaljodi on 05-31-2024 Nucleated RBC/100 WBC (Bld) [Ratio] 0 % 0-5 [facility] Platelet countOrdered By: Angelito arline Gopalrejialyssa on 05-31-2024 Platelets (Bld) [#/Vol] 126 10*3/uL Low 150-450 [facility] Potassium (Unsp spec) [Mass/ Vol]Ordered By: Payam Reyna on 05-31-2024 Potassium [Moles/Vol] 4.0 mmol/L 3.3-5.1 [facility] Potassium measurement (mass/ volume)Ordered By: Payam Reyna on 05-31-2024 Potassium (Unsp spec) [Mass/Vol] 4.0 mmol/L 3.3-5.1 [facility] RBC Auto (Bld) [#/Vol]Ordere d By: Angelitomerylshine Gopaljodi on 05-31-2024 RBC (Bld) [#/Vol] 3.17 10*6/uL Low 4.2-5.4 [facility] Serum creatinine measurement (mass/volume)Ordered By: Payam Reyna on 05-31-2024 Creatinine [Mass/Vol] 0.65 mg/dL Low 0.70-1.20 [facility] Serum globulin measurementOr dered By: Payam Reyna on 05-31-2024 Globulin (S) [Mass/Vol] 3.4 g/dL 2.2-4.2 [facility] Serum glucose measurement (m ass/volume)Ordered By: Payam Reyna on 05-31-2024 Glucose [Mass/Vol] 76 mg/dL 70-99 [facility] Serum or plasma alanine cheatham otransferase (ALT) measurementOrdered By: Payam Reyna on 05-31-2024 ALT [Catalytic activity/Vol] 29 U/L <35 [facility] Serum or plasma albumin yonatan urement (mass/volume)Ordered By: Payam Reyna on 05-31-2024 Albumin [Mass/Vol] 3.1 g/dL Low 3.4-4.8 [facility] Serum or plasma albumin/glob ulin mass ratioOrdered By: Payam Reyna on 05-31-2024 Albumin/Globulin [Mass ratio] 0.9 {ratio} 0.9-2.4 [facility] Serum or plasma alkaline shannon sphatase measurementOrdered By: Payam Reyna on 05-31-2024 ALP [Catalytic activity/Vol] 49 U/L 35-104 [facility] Serum or plasma calcium yonatan urement (mass/volume)Ordered By: Payam Reyna on 05-31-2024 Calcium [Mass/Vol] 9.0 mg/dL 7.6-11.0 [facility] Serum or plasma urea nitroge n measurement (mass/volume)Ordered By: Payam Reyna on 05-31-2024 Urea nitrogen [Mass/Vol] 15 mg/dL 4-19 [facility] Sodium levelOrdered By: Jas Reyna on 05-31-2024 Sodium [Moles/Vol] 138 mmol/L 133-145 [facility] Total proteinOrdered By: Fredy Reyna on 05-31-2024 Protein [Mass/Vol] 6.5 g/dL 5.9-8.4 [facility] Vitamin D, 25-hydroxyOrdered By: Payam Reyna on 05-31-2024 Vitamin D 25-Hydroxy 32.7 ng/mL 30-100 [facility] Comment on above: Vitamin D StatusDefi ciency: <20 ng/mL (50nmol/L)Insufficiency: 20-30 ng/mL (50-75 nmol/L)Sufficiency: 30-100 ng/mL (75-250 nmol/L)Toxicity: >100 ng/mL (>250 nmol/L) White blood cell (WBC) count Ordered By: Payam Reyna on 05-31-2024 WBC (Bld) [#/Vol] 5.6 10*3/uL 4.4-11.0 [facility] Bacteria LM.HPF (Urine sed) [#/Area]Ordered By: Payam Reyna on 05-13-2024 Urine Bacteria RARE /hpf None Seen [facility] Bilirubin Test strip Ql (U)O rdered By: Payam Reyna on 05-13-2024 Bilirubin Ql (U) Negative Negative [facility] Epithelial cells.squamous LM Ql (Urine sed)Ordered By: Payam Reyna on 05-13-2024 Epithelial cells.squamous LM.HPF (Urine sed) [#/Area] 0 /[HPF] 5-10 [facility] Glucose Ql (U)Ordered By: Angelito Reyna on 05-13-2024 Urine Glucose (UA) Normal mg/dl Normal [facility] Ketones Test strip Ql (U)Ord ered By: Payam Reyna on 05-13-2024 Ketones Ql (U) Negative Negative [facility] Microscopic analysis of urin e for red blood cells (RBC)Ordered By: Payam Reyna on 05-13-2024 Microscopic analysis of urine for red blood cells (RBC) 0-5 SEEN /hpf 0-5 [facility] Urine RBC 0-5 SEEN /hpf 0-5 [facility] Mucus LM Ql (Urine sed)Order ed By: Payam Reyna on 05-13-2024 Mucus Ql (Urine sed) 0 SEEN /hpf [facility] Nitrite Test strip Ql (U)Ord ered By: Payam Reyna on 05-13-2024 Nitrite Ql (U) Positive High Negative [facility] Protein Test strip Ql (U)Ord ered By: Payam Reyna on 05-13-2024 Protein Ql (U) Negative Negative [facility] Squamous epithelial cells de tection in urine sediment by light microscopyOrdered By: Payam Reyna on 05-13-2024 Epithelial cells.squamous LM Ql (Urine sed) 0-5 SEEN /hpf 5-10 [facility] Urine blood detectionOrdered By: Payam Reyna on 05-13-2024 Urine Occult Blood 10 /ul High Negative [facility] Urine clarityOrdered By: Fredy Reyna on 05-13-2024 Clarity (U) Clear Clear [facility] Urine color determinationOrd ered By: Payam Reyna on 05-13-2024 Color (U) Yellow Yellow [facility] Urine cultureOrdered By: Fredy Reyna on 05-13-2024 Bacteria identified Cx Nom (U) Escherichia coli Abnormal [facility] Urine glucose detectionOrder ed By: Payam Reyna on 05-13-2024 Glucose Ql (U) Normal mg/dl Normal [facility] Urine leukocyte esterase det ection by dipstickOrdered By: Payam Reyna on 05-13-2024 Leukocyte esterase Test strip Ql (U) 100 /ul High Negative [facility] Urine pHOrdered By: Deloris Reyna on 05-13-2024 pH (U) 6.5 [pH] 5.0 - 8.0 [facility] Urine sediment bacteria coun t by microscopy (number/high power field)Ordered By: Payam Reyna on 05-13-2024 Bacteria LM.HPF (Urine sed) [#/Area] RARE /hpf None Seen [facility] Urine specific gravity measu rementOrdered By: Payam Reyna on 05-13-2024 Specific gravity (U) [Rel density] 1.010 1.002-1.030 [facility] Urine urobilinogen measureme ntOrdered By: Payam Reyna on 05-13-2024 Urobilinogen Ql (U) Normal mg/dl Normal [facility] Urobilinogen Ql (U)Ordered B y: Payam Reyna on 05-13-2024 Urine Urobilinogen Normal mg/dl Normal [facility] White blood cell countOrdere d By: Payam Reyna on 05-13-2024 Urine WBC 0-5 SEEN /hpf 0-5 [facility] White blood cell count 0-5 SEEN /hpf 0-5 [facility] Absolute lymphocyte countOrd ered By: Payam Reyna on 05-03-2024 Lymphocytes Auto (Unsp spec) [#/Vol] 1.13 10*3/uL 0.83-4.51 [facility] Absolute neutrophil countOrd ered By: Payam Reyna on 05-03-2024 Neutrophils (Bld) [#/Vol] 5.1 10*3/uL 2.0-7.7 [facility] Albumin to globulin ratioOrd ered By: Payam Reyna on 05-03-2024 Albumin/Globulin [Mass ratio] 0.5 {ratio} Low 0.9-2.4 [facility] Automated lymphocyte count a s percentage of total leukocytesOrdered By: Paaym Reyna on 05-03-2024 Lymphocytes/100 WBC Auto (Unsp spec) 16.1 % Low 19-41 [facility] Basophil percentageOrdered B y: Payam Reyna on 05-03-2024 Basophils/100 WBC (Bld) 0.6 % 0-1 [facility] Bilirubin Test strip Ql (U)O rdered By: Payam Reyna on 05-03-2024 Bilirubin Ql (U) Negative Negative [facility] Bilirubin, totalOrdered By: Payam Reyna on 05-03-2024 Bilirubin [Mass/Vol] 0.60 mg/dL 0.20-1.00 [facility] Comment on above: For patients on eltr ombopag therapy, use of [facility] TBIL is not recommended. Blood urea nitrogen (BUN)/cr eatinine ratioOrdered By: Jamisongarfield Herronrejialyssa on 05-03-2024 Urea nitrogen/Creatinine [Mass ratio] 22.8 mg/mg High 10-20 [facility] Carbon dioxide measurementOr dered By: Payam Reyna on 05-03-2024 CO2 [Moles/Vol] 26.0 mmol/L 21.0-32.0 [facility] Chloride measurementOrdered By: Payam Ramirezalyssa on 05-03-2024 Chloride [Moles/Vol] 108 mmol/L High 98-107 [facility] Eosinophil percentageOrdered By: Payam Gopalrejialyssa on 05-03-2024 Eosinophils/100 WBC (Bld) 1.1 % 0-5 [facility] Erythrocyte distribution wid th (RBC) [Ratio]Ordered By: Payam Reyna on 05-03-2024 Erythrocyte distribution width (RBC) [Entitic vol] 62.4 fL High 35.1-43.9 [facility] Erythrocyte distribution wid th ratioOrdered By: Payam Reyna on 05-03-2024 Erythrocyte distribution width (RBC) [Ratio] 17.4 % High 11.6-14.6 [facility] Erythrocyte distribution wid th standard deviationOrdered By: Payam Reyna on 05-03-2024 Erythrocyte distribution width (RBC) [Ratio] 62.4 fl High 35.1-43.9 [facility] Estimated glomerular filtrat ion rate (GFR) AmericanOrdered By: Payam Reyna on 05-03-2024 Estimated GFR (MDRD) Amer 95 mL/min >60 [facility] Comment on above: GFR Calc Glomerular filtration rate ( GFR) estimationOrdered By: Payam Reyna on 05-03-2024 Estimated GFR (MDRD) Non-Af Amer 78 mL/min >60 [facility] Comment on above: Non- GFR Calc GFR/1.73 sq M.predicted among non-blacks MDRD (S/P/Bld) [Vol rate/Area] 78 mL/min/{1.73_m2} >60 [facility] Comment on above: Non- GFR Calc Glucose Ql (U)Ordered By: Angelito Reyna on 05-03-2024 Urine Glucose (UA) Normal mg/dl Normal [facility] Glucose measurementOrdered B y: Payam Reyna on 05-03-2024 Glucose [Mass/Vol] 69 mg/dL Low 74-106 [facility] Hematocrit Auto (Bld) [Volum e fraction]Ordered By: Payam Reyna on 05-03-2024 Hematocrit (Bld) [Volume fraction] 29.8 % Low 37-47 [facility] Hemoglobin measurementOrdere d By: Payam Reyna on 05-03-2024 Hemoglobin (Bld) [Mass/Vol] 9.1 g/dL Low 12.0-15.0 [facility] Immature granulocytes/100 WB C Auto (Bld)Ordered By: Payam Reyna on 05-03-2024 Immature granulocytes/100 WBC (Bld) 0.400 % 0.0-0.9 [facility] Comment on above: IG% - Immature Granu locytes (promyelocytes, myelocytes and metamyelocytes) > 1% indicates that a LEFT SHIFT is Present. Ketones Test strip Ql (U)Ord ered By: Payam Reyna on 05-03-2024 Ketones Ql (U) Negative Negative [facility] Laboratory - Chemistry and C hemistry - challengeOrdered By: Payam Reyna on 05-03-2024 AST [Catalytic activity/Vol] 34 U/L 15-37 [facility] Lymphocytes Auto (Unsp spec) [#/Vol]Ordered By: Payam Reyna on 05-03-2024 Lymphocytes (Bld) [#/Vol] 1.13 10*3/uL 0.83-4.51 [facility] Lymphocytes/100 WBC Auto (Un sp spec)Ordered By: Payam Reyna on 05-03-2024 Lymphocytes/100 WBC (Bld) 16.1 % Low 19-41 [facility] MCV (mean corpuscular volume ) determinationOrdered By: Payam Reyna on 05-03-2024 MCV (RBC) [Entitic vol] 99.0 fL 81-99 [facility] Mean corpuscular hemoglobin (MCH) determinationOrdered By: Payam Reyna on 05-03-2024 MCH (RBC) [Entitic mass] 30.2 pg 27.0-32.0 [facility] Mean corpuscular hemoglobin concentration (MCHC) determinationOrdered By: Payam Reyna on 05-03-2024 MCHC (RBC) [Mass/Vol] 30.5 g/dL Low 32-36 [facility] Mean platelet volume determi nationOrdered By: Payam Reyna on 05-03-2024 Platelet mean volume (Bld) [Entitic vol] 9.4 fL 6.2-12.0 [facility] Monocyte percentageOrdered B y: Payam Reyna on 05-03-2024 Monocytes/100 WBC (Bld) 9.7 % 0-10 [facility] Neutrophil percentageOrdered By: Payam Reyna on 05-03-2024 Neutrophils/100 WBC (Bld) 72.1 % High 47-70 [facility] Nitrite Test strip Ql (U)Ord ered By: Payam Reyna on 05-03-2024 Nitrite Ql (U) Negative Negative [facility] Nucleated red blood cell per centageOrdered By: Payam Reyna on 05-03-2024 Nucleated RBC/100 WBC (Bld) [Ratio] 0 % 0-5 [facility] Platelet countOrdered By: Angelito Reyna on 05-03-2024 Platelets (Bld) [#/Vol] 163 10*3/uL 150-450 [facility] Potassium measurementOrdered By: Payam Reyna on 05-03-2024 Potassium [Moles/Vol] 4.3 mmol/L 3.5-5.1 [facility] Protein Test strip Ql (U)Ord ered By: Payam Reyna on 05-03-2024 Protein Ql (U) Negative Negative [facility] RBC Auto (Bld) [#/Vol]Ordere d By: Payam Reyna on 05-03-2024 RBC (Bld) [#/Vol] 3.01 10*6/uL Low 4.2-5.4 [facility] Serum anion gap measurementO rdered By: Payam Reyna on 05-03-2024 Anion gap [Moles/Vol] 7 mmol/L 5-15 [facility] Serum globulin measurementOr dered By: Payam Reyna on 05-03-2024 Globulin (S) [Mass/Vol] 4.8 g/dL High 2.2-4.2 [facility] Serum or plasma alanine cheatham otransferase (ALT) measurementOrdered By: Payam Reyna on 05-03-2024 ALT [Catalytic activity/Vol] 31 U/L 13-56 [facility] Serum or plasma albumin yonatan urement (mass/volume)Ordered By: Payam Reyna on 05-03-2024 Albumin [Mass/Vol] 2.3 g/dL Low 3.2-5.0 [facility] Serum or plasma alkaline shannon sphatase measurementOrdered By: Payam Reyna on 05-03-2024 ALP [Catalytic activity/Vol] 57 U/L 45-117 [facility] Serum or plasma calcium yonatan urement (mass/volume)Ordered By: Payam Reyna on 05-03-2024 Calcium [Mass/Vol] 8.9 mg/dL 8.5-10.1 [facility] Serum or plasma creatinine m easurement (mass/volume)Ordered By: Payam Reyna on 05-03-2024 Creatinine [Mass/Vol] 0.74 mg/dL 0.55-1.02 [facility] Comment on above: The validity of the calculated GFR & GFRAA in patients over 70 years has not been determined. Clinical correlation is essential. Serum or plasma thyroid stim ulating hormone (TSH) measurement (units/volume)Ordered By: Payam Reyna on 05-03-2024 TSH Qn 1.850 uIU/mL 0.358-3.740 [facility] Serum or plasma urea nitroge n measurement (mass/volume)Ordered By: Payam Reyna 05-03-2024 Urea nitrogen [Mass/Vol] 17 mg/dL 7-18 [facility] Sodium levelOrdered By: Jas Reyna 05-03-2024 Sodium [Moles/Vol] 141 mmol/L 136-145 [facility] TSH QnOrdered By: Payam Reyna on 05-03-2024 Thyroid Stimulating Hormone (TSH) 1.850 uIU/mL 0.358-3.740 [facility] Total proteinOrdered By: Fredy Reyna on 05-03-2024 Protein [Mass/Vol] 7.1 g/dL 6.4-8.2 [facility] Urine blood detectionOrdered By: Payam Reyna on 05-03-2024 Urine Occult Blood 50 /ul High Negative [facility] Urine clarityOrdered By: Fredy Reyna on 05-03-2024 Clarity (U) Sl. Cloudy Clear [facility] Urine color determinationOrd ered By: Payam Reyna on 05-03-2024 Color (U) Yellow Yellow [facility] Urine cultureOrdered By: Fredy Reyna on 05-03-2024 Bacteria identified Cx Nom (U) Presumptive E. coli Abnormal [facility] Urine glucose detectionOrder ed By: Payam Reyna on 05-03-2024 Glucose Ql (U) Normal mg/dl Normal [facility] Urine leukocyte esterase det ection by dipstickOrdered By: Payam Reyna on 05-03-2024 Leukocyte esterase Test strip Ql (U) 500 /ul High Negative [facility] Urine pHOrdered By: Deloris Reyna on 05-03-2024 pH (U) 6.5 [pH] 5.0 - 8.0 [facility] Urine specific gravity measu rementOrdered By: Payam Reyna on 05-03-2024 Specific gravity (U) [Rel density] 1.010 1.002-1.030 [facility] Urine urobilinogen measureme ntOrdered By: Payam Reyna on 05-03-2024 Urobilinogen Ql (U) Normal mg/dl Normal [facility] Urobilinogen Ql (U)Ordered B y: Payam Reyna on 05-03-2024 Urine Urobilinogen Normal mg/dl Normal [facility] White blood cell (WBC) count Ordered By: Payam Reyna on 05-03-2024 WBC (Bld) [#/Vol] 7.0 10*3/uL 4.4-11.0 [facility] Copper, serumOrdered By: Fredy Reyna on 04-23-2024 Serum Copper 93 ug/dL 80-158 [facility] Comment on above: Detection Limit = 5P erformed at: [facility] [id number] [place], [place] [id number] Director: Jeremiah Bates MD, Phone: [phone] Absolute lymphocyte countOrd ered By: Payam Reyna on 04-05-2024 Lymphocytes Auto (Unsp spec) [#/Vol] 0.90 10*3/uL 0.83-4.51 [facility] Absolute neutrophil countOrd ered By: Payam Herronrejialyssa on 04-05-2024 Neutrophils (Bld) [#/Vol] 3.6 10*3/uL 2.0-7.7 [facility] Albumin to globulin ratioOrd ered By: Jasmichaelgarfield Herronrejialyssa on 04-05-2024 Albumin/Globulin [Mass ratio] 0.5 {ratio} Low 0.9-2.4 [facility] Automated lymphocyte count a s percentage of total leukocytesOrdered By: Payam Reyna on 04-05-2024 Lymphocytes/100 WBC Auto (Unsp spec) 17.3 % Low 19-41 [facility] Basophil percentageOrdered B y: Payam Reyna on 04-05-2024 Basophils/100 WBC (Bld) 0.8 % 0-1 [facility] Bilirubin, totalOrdered By: Payam Reyna on 04-05-2024 Bilirubin [Mass/Vol] 0.60 mg/dL 0.20-1.00 [facility] Comment on above: For patients on eltr ombopag therapy, use of [facility] TBIL is not recommended. Blasts/100 WBC (Bld)Ordered By: Payam Reyna on 04-05-2024 Blast Cells % 0.04 % High 0-0 [facility] Blood band neutrophil count as percentage of total leukocytesOrdered By: Payam Reyna on 04-05-2024 Band form neutrophils/100 WBC (Bld) 0.04 % 0-5 [facility] Blood basophils/100 leukocyt esOrdered By: Jasonggarfield Reyna on 04-05-2024 Basophils/100 WBC (Bld) 0.04 % 0-1 [facility] Blood blasts/100 leukocytesO rdered By: Jasonggarfield Reyna on 04-05-2024 Blasts/100 WBC (Bld) 0.04 % High 0-0 [facility] Blood eosinophils/100 leukoc ytesOrdered By: Payam Reyna on 04-05-2024 Eosinophils/100 WBC (Bld) 0.04 % 0-5 [facility] Blood leukocytes other/100 l eukocytesOrdered By: Payam Reyna on 04-05-2024 WBC other/100 WBC (Bld) 0.04 % [facility] Blood lymphocytes/100 leukoc ytesOrdered By: Payam Reyna on 04-05-2024 Lymphocytes/100 WBC (Bld) 0.04 % Low 19-41 [facility] Blood manual differential co mment interpretation (narrative result)Ordered By: Payam Reyna on 04-05-2024 Manual differential comment Colton (Bld) [Interp] SCANNED [facility] Blood metamyelocytes/100 bailee kocytesOrdered By: Payam Reyna on 04-05-2024 Metamyelocytes/100 WBC (Bld) 0.04 % 0-1 [facility] Blood monocytes/100 leukocyt esOrdered By: Payam Reyna on 04-05-2024 Monocytes/100 WBC (Bld) 0.04 % 0-10 [facility] Blood promyelocytes/100 leuk ocytesOrdered By: Payam Reyna on 04-05-2024 Promyelocytes/100 WBC (Bld) 0.04 % High 0-0 [facility] Blood segmented neutrophils/ 100 leukocytesOrdered By: Payam Reyna on 04-05-2024 Segmented neutrophils/100 WBC (Bld) 0.04 % Low 47-70 [facility] Blood urea nitrogen (BUN)/cr eatinine ratioOrdered By: Payam Reyna on 04-05-2024 Urea nitrogen/Creatinine [Mass ratio] 23.3 mg/mg High 10-20 [facility] Carbon dioxide measurementOr dered By: Payam Reyna on 04-05-2024 CO2 [Moles/Vol] 27.0 mmol/L 21.0-32.0 [facility] Cells counted Molgen (Bld/Ti ss) [#]Ordered By: Payam Reyna on 04-05-2024 Differential Total Cells Counted 0.04 MANUAL DIFF [facility] Chloride measurementOrdered By: Payam Reyna on 04-05-2024 Chloride [Moles/Vol] 108 mmol/L High 98-107 [facility] Eosinophil percentageOrdered By: Payam Reyna on 04-05-2024 Eosinophils/100 WBC (Bld) 1.3 % 0-5 [facility] Erythrocyte distribution wid th (RBC) [Ratio]Ordered By: Payam Reyna on 04-05-2024 Erythrocyte distribution width (RBC) [Entitic vol] 67.1 fL High 35.1-43.9 [facility] Erythrocyte distribution wid th ratioOrdered By: Payam Reyna on 04-05-2024 Erythrocyte distribution width (RBC) [Ratio] 18.7 % High 11.6-14.6 [facility] Erythrocyte distribution wid th standard deviationOrdered By: arline Reyna on 04-05-2024 Erythrocyte distribution width (RBC) [Ratio] 67.1 fl High 35.1-43.9 [facility] Estimated glomerular filtrat ion rate (GFR) AmericanOrdered By: Payam Reyna on 04-05-2024 Estimated GFR (MDRD) Amer 104 mL/min >60 [facility] Comment on above: GFR Calc Glomerular filtration rate ( GFR) estimationOrdered By: Payam Reyna on 04-05-2024 Estimated GFR (MDRD) Non-Af Amer 86 mL/min >60 [facility] Comment on above: Non- GFR Calc GFR/1.73 sq M.predicted among non-blacks MDRD (S/P/Bld) [Vol rate/Area] 86 mL/min/{1.73_m2} >60 [facility] Comment on above: Non- GFR Calc Glucose measurementOrdered B y: Payam Reyna on 04-05-2024 Glucose [Mass/Vol] 70 mg/dL Low 74-106 [facility] Hematocrit Auto (Bld) [Volum e fraction]Ordered By: Payam Reyna on 04-05-2024 Hematocrit (Bld) [Volume fraction] 26.8 % Low 37-47 [facility] Hemoglobin measurementOrdere d By: Payam Reyna on 04-05-2024 Hemoglobin (Bld) [Mass/Vol] 8.9 g/dL Low 12.0-15.0 [facility] Immature granulocytes/100 WB C Auto (Bld)Ordered By: Payam Reyna on 04-05-2024 Immature granulocytes/100 WBC (Bld) 0.600 % 0.0-0.9 [facility] Comment on above: IG% - Immature Granu locytes (promyelocytes, myelocytes and metamyelocytes) > 1% indicates that a LEFT SHIFT is Present. Laboratory - Chemistry and C hemistry - challengeOrdered By: Payam Reyna on 04-05-2024 AST [Catalytic activity/Vol] 33 U/L 15-37 [facility] Laboratory - Hematology and Cell countsOrdered By: Payam Reyna on 04-05-2024 Anisocytosis Ql (Bld) 2+ [facility] Lymphocytes Auto (Unsp spec) [#/Vol]Ordered By: Payam Reyna on 04-05-2024 Lymphocytes (Bld) [#/Vol] 0.90 10*3/uL 0.83-4.51 [facility] Lymphocytes/100 WBC Auto (Un sp spec)Ordered By: Payam Reyna on 04-05-2024 Lymphocytes/100 WBC (Bld) 17.3 % Low 19-41 [facility] MCV (mean corpuscular volume ) determinationOrdered By: Payam Reyna on 04-05-2024 MCV (RBC) [Entitic vol] 99.6 fL High 81-99 [facility] Manual differential comment Colton (Bld) [Interp]Ordered By: Payam Reyna on 04-05-2024 Differential Comment SCANNED [facility] Mean corpuscular hemoglobin (MCH) determinationOrdered By: Payam Reyna on 04-05-2024 MCH (RBC) [Entitic mass] 33.1 pg High 27.0-32.0 [facility] Mean corpuscular hemoglobin concentration (MCHC) determinationOrdered By: Payam Reyna on 04-05-2024 MCHC (RBC) [Mass/Vol] 33.2 g/dL 32-36 [facility] Mean platelet volume determi nationOrdered By: Payam Reyna on 04-05-2024 Platelet mean volume (Bld) [Entitic vol] 9.9 fL 6.2-12.0 [facility] Monocyte percentageOrdered B y: Payam Ramirezalyssa on 04-05-2024 Monocytes/100 WBC (Bld) 10.4 % High 0-10 [facility] Myelocyte %Ordered By: Matias harvey Gopalrejialyssa on 04-05-2024 Myelocytes/100 WBC (Bld) 0.04 % High 0-0 [facility] Neutrophil percentageOrdered By: Payam Gopalrejialyssa on 04-05-2024 Neutrophils/100 WBC (Bld) 69.6 % 47-70 [facility] Nucleated red blood cell per centageOrdered By: Payam Gopalrejialyssa on 04-05-2024 Nucleated RBC/100 WBC (Bld) [Ratio] 0 % 0-5 [facility] Plasma cell percentageOrdere d By: Payam Gopalrejialyssa on 04-05-2024 Plasma Cells % (manual) 0.04 % [facility] Platelet countOrdered By: Angelito nunn Gopalrejialyssa on 04-05-2024 Platelets (Bld) [#/Vol] 163 10*3/uL 150-450 [facility] Potassium measurementOrdered By: Payam Gopalrejialyssa on 04-05-2024 Potassium [Moles/Vol] 4.0 mmol/L 3.5-5.1 [facility] Promyelocytes/100 WBC (Bld)O rdered By: Payam Gopalrejialyssa on 04-05-2024 Promyelocytes % 0.04 % High 0-0 [facility] RBC Auto (Bld) [#/Vol]Ordere d By: Payam Gopalrejialyssa on 04-05-2024 RBC (Bld) [#/Vol] 2.69 10*6/uL Low 4.2-5.4 [facility] Segmented neutrophils/100 WB C (Bld)Ordered By: Payam Gopalrejialyssa on 04-05-2024 Neutrophils/100 WBC (Bld) 0.04 % Low 47-70 [facility] Serum anion gap measurementO rdered By: Jamisongarfield Herronrejialyssa on 04-05-2024 Anion gap [Moles/Vol] 4 mmol/L Low 5-15 [facility] Serum globulin measurementOr dered By: Payam Reyna on 04-05-2024 Globulin (S) [Mass/Vol] 5.1 g/dL High 2.2-4.2 [facility] Serum or plasma alanine cheatham otransferase (ALT) measurementOrdered By: Payam Reyna on 04-05-2024 ALT [Catalytic activity/Vol] 28 U/L 13-56 [facility] Serum or plasma albumin yonatan urement (mass/volume)Ordered By: Payam Reyna on 04-05-2024 Albumin [Mass/Vol] 2.3 g/dL Low 3.2-5.0 [facility] Serum or plasma alkaline shannon sphatase measurementOrdered By: Payam Reyna on 04-05-2024 ALP [Catalytic activity/Vol] 64 U/L 45-117 [facility] Serum or plasma calcium yonatan urement (mass/volume)Ordered By: Payam Reyna 04-05-2024 Calcium [Mass/Vol] 8.8 mg/dL 8.5-10.1 [facility] Serum or plasma creatinine m easurement (mass/volume)Ordered By: Payam Reyna on 04-05-2024 Creatinine [Mass/Vol] 0.69 mg/dL 0.55-1.02 [facility] Comment on above: The validity of the calculated GFR & GFRAA in patients over 70 years has not been determined. Clinical correlation is essential. Serum or plasma urea nitroge n measurement (mass/volume)Ordered By: Payam Reyna on 04-05-2024 Urea nitrogen [Mass/Vol] 16 mg/dL 7-18 [facility] Sodium levelOrdered By: Jas Reyna 04-05-2024 Sodium [Moles/Vol] 139 mmol/L 136-145 [facility] Total cell countOrdered By: Payam Reyna 04-05-2024 Cells counted Molgen (Bld/Tiss) [#] 0.04 MANUAL DIFF [facility] Total proteinOrdered By: Fredy Reyna on 04-05-2024 Protein [Mass/Vol] 7.4 g/dL 6.4-8.2 [facility] WBC other/100 WBC (Bld)Order ed By: Payam Reyna on 04-05-2024 Other Cells % 0.04 % [facility] White blood cell (WBC) count Ordered By: Payam Reyna on 04-05-2024 WBC (Bld) [#/Vol] 5.2 10*3/uL 4.4-11.0 [facility] [id number] DOrdered By: Alyssa Reyna on 03-02-2024 Vitamin D 25-Hydroxy 35.7 ng/mL [facility] Comment on above: Vitamin D 25(OH) Sta tus Range Deficiency <20 ng/mL (50nmol/L) Insufficiency 20 - 30 ng/mL (50 - 75 nmol/L) Sufficiency 30 - 100 ng/mL (75 - 250 nmol/L) Toxicity >100 ng/mL (>250 nmol/L) Absolute neutrophil countOrd ered By: Payam Reyna on 03-01-2024 Neutrophils (Bld) [#/Vol] 4.2 10*3/uL 2.0-7.7 [facility] Albumin to globulin ratioOrd ered By: Payam Reyna on 03-01-2024 Albumin/Globulin [Mass ratio] 0.4 {ratio} Low 0.9-2.4 [facility] Basophil percentageOrdered B y: Payam Reyna on 03-01-2024 Basophils/100 WBC (Bld) 0.7 % 0-1 [facility] Bilirubin, totalOrdered By: Payam Reyna on 03-01-2024 Bilirubin [Mass/Vol] 0.50 mg/dL 0.20-1.00 [facility] Comment on above: For patients on eltr ombopag therapy, use of [facility] TBIL is not recommended. Blood urea nitrogen (BUN)/cr eatinine ratioOrdered By: Payam Reyna on 03-01-2024 Urea nitrogen/Creatinine [Mass ratio] 20.9 mg/mg High 10-20 [facility] Carbon dioxide measurementOr dered By: Payam Reyna on 03-01-2024 CO2 [Moles/Vol] 22.0 mmol/L 21.0-32.0 [facility] Chloride measurementOrdered By: Payam Reyna on 03-01-2024 Chloride [Moles/Vol] 108 mmol/L High 98-107 [facility] Eosinophil percentageOrdered By: Payam Reyna on 03-01-2024 Eosinophils/100 WBC (Bld) 1.3 % 0-5 [facility] Erythrocyte distribution wid th (RBC) [Ratio]Ordered By: Payam Reyna on 03-01-2024 Erythrocyte distribution width (RBC) [Entitic vol] 56.0 fL High 35.1-43.9 [facility] Erythrocyte distribution wid th ratioOrdered By: Payam Reyna on 03-01-2024 Erythrocyte distribution width (RBC) [Ratio] 15.8 % High 11.6-14.6 [facility] Estimated glomerular filtrat ion rate (GFR) AmericanOrdered By: Payam Reyna on 03-01-2024 Estimated GFR (MDRD) Amer 107 mL/min >60 [facility] Comment on above: GFR Calc Glomerular filtration rate ( GFR) estimationOrdered By: Payam Reyna on 03-01-2024 Estimated GFR (MDRD) Non-Af Amer 88 mL/min >60 [facility] Comment on above: Non- GFR Calc Glucose measurementOrdered B y: Payam Reyna on 03-01-2024 Glucose [Mass/Vol] 68 mg/dL Low 74-106 [facility] Hematocrit Auto (Bld) [Volum e fraction]Ordered By: Payam Reyna on 03-01-2024 Hematocrit (Bld) [Volume fraction] 28.3 % Low 37-47 [facility] Hemoglobin measurementOrdere d By: Payam Reyna on 03-01-2024 Hemoglobin (Bld) [Mass/Vol] 8.3 g/dL Low 12.0-15.0 [facility] Immature granulocytes/100 WB C Auto (Bld)Ordered By: Payam Reyna on 03-01-2024 Immature granulocytes/100 WBC (Bld) 0.700 % 0.0-0.9 [facility] Comment on above: IG% - Immature Granu locytes (promyelocytes, myelocytes and metamyelocytes) > 1% indicates that a LEFT SHIFT is Present. Laboratory - Chemistry and C hemistry - challengeOrdered By: Payam Reyna on 03-01-2024 AST [Catalytic activity/Vol] 34 U/L 15-37 [facility] Lymphocytes Auto (Unsp spec) [#/Vol]Ordered By: Payam Reyna on 03-01-2024 Lymphocytes (Bld) [#/Vol] 1.02 10*3/uL 0.83-4.51 [facility] Lymphocytes/100 WBC Auto (Un sp spec)Ordered By: Payam Reyna on 03-01-2024 Lymphocytes/100 WBC (Bld) 16.9 % Low 19-41 [facility] MCV (mean corpuscular volume ) determinationOrdered By: Payam Reyna on 03-01-2024 MCV (RBC) [Entitic vol] 99.6 fL High 81-99 [facility] Mean corpuscular hemoglobin (MCH) determinationOrdered By: Payam Reyna on 03-01-2024 MCH (RBC) [Entitic mass] 29.2 pg 27.0-32.0 [facility] Mean corpuscular hemoglobin concentration (MCHC) determinationOrdered By: merylroyaltongarfield Reyna on 03-01-2024 MCHC (RBC) [Mass/Vol] 29.3 g/dL Low 32-36 [facility] Mean platelet volume determi nationOrdered By: Payam Reyna on 03-01-2024 Platelet mean volume (Bld) [Entitic vol] 10.1 fL 6.2-12.0 [facility] Monocyte percentageOrdered B y: Payam Reyna on 03-01-2024 Monocytes/100 WBC (Bld) 11.9 % High 0-10 [facility] Neutrophil percentageOrdered By: Payam Reyna on 03-01-2024 Neutrophils/100 WBC (Bld) 68.5 % 47-70 [facility] Nucleated red blood cell per centageOrdered By: Payam Reyna on 03-01-2024 Nucleated RBC/100 WBC (Bld) [Ratio] 0.7 % 0-5 [facility] Platelet countOrdered By: Angelito Reyna on 03-01-2024 Platelets (Bld) [#/Vol] 217 10*3/uL 150-450 [facility] Potassium measurementOrdered By: Payam Reyna on 03-01-2024 Potassium [Moles/Vol] 4.0 mmol/L 3.5-5.1 [facility] RBC Auto (Bld) [#/Vol]Ordere d By: Payam Reyna on 03-01-2024 RBC (Bld) [#/Vol] 2.84 10*6/uL Low 4.2-5.4 [facility] Serum anion gap measurementO rdered By: Payam Reyna on 03-01-2024 Anion gap [Moles/Vol] 7 mmol/L 5-15 [facility] Serum globulin measurementOr dered By: Payam Reyna on 03-01-2024 Globulin (S) [Mass/Vol] 5.7 g/dL High 2.2-4.2 [facility] Serum or plasma alanine cheatham otransferase (ALT) measurementOrdered By: Payam Reyna on 03-01-2024 ALT [Catalytic activity/Vol] 19 U/L 13-56 [facility] Serum or plasma albumin yonatan urement (mass/volume)Ordered By: Payam Reyna on 03-01-2024 Albumin [Mass/Vol] 2.2 g/dL Low 3.2-5.0 [facility] Serum or plasma alkaline shannon sphatase measurementOrdered By: Payam Reyna on 03-01-2024 ALP [Catalytic activity/Vol] 63 U/L 45-117 [facility] Serum or plasma calcium yonatan urement (mass/volume)Ordered By: Payam Reyna on 03-01-2024 Calcium [Mass/Vol] 8.8 mg/dL 8.5-10.1 [facility] Serum or plasma creatinine m easurement (mass/volume)Ordered By: Payam Reyna on 03-01-2024 Creatinine [Mass/Vol] 0.67 mg/dL 0.55-1.02 [facility] Comment on above: The validity of the calculated GFR & GFRAA in patients over 70 years has not been determined. Clinical correlation is essential. Serum or plasma urea nitroge n measurement (mass/volume)Ordered By: Payam Reyna on 03-01-2024 Urea nitrogen [Mass/Vol] 14 mg/dL 7-18 [facility] Sodium levelOrdered By: Jas Reyna on 03-01-2024 Sodium [Moles/Vol] 137 mmol/L 136-145 [facility] Total proteinOrdered By: Fredy Reyna on 03-01-2024 Protein [Mass/Vol] 7.9 g/dL 6.4-8.2 [facility] White blood cell (WBC) count Ordered By: Payam Reyna on 03-01-2024 WBC (Bld) [#/Vol] 6.1 10*3/uL 4.4-11.0 [facility] CBC W Auto Differential pane l (Bld)on 02-24-2024 Basophils (Bld) [#/Vol] 0.04 10*3/uL [facility] Basophils/100 WBC (Bld) 0.4 % [facility] Differential cell count method Nom (Bld) Auto [facility] Eosinophils (Bld) [#/Vol] 0.04 10*3/uL [facility] Eosinophils/100 WBC (Bld) 0.4 % [facility] Erythrocyte distribution width (RBC) [Ratio] 15.2 % High 11.5 - 15.0 % [facility] Hematocrit (Bld) [Volume fraction] 28.3 % Low 36.0 - 46.0 % [facility] Hemoglobin (Bld) [Mass/Vol] 8.5 g/dL Low 11.5 - 15.5 g/dL [facility] Immature granulocytes (Bld) [#/Vol] 0.05 10*3/uL [facility] Immature granulocytes/100 WBC (Bld) 0.5 % [facility] Interpretation and review of laboratory results Abnormal [facility] Lymphocytes (Bld) [#/Vol] 0.92 10*3/uL Low [facility] Lymphocytes/100 WBC (Bld) 9.7 % [facility] MCH (RBC) [Entitic mass] 28.1 pg 26.0 - 34.0 pg [facility] MCHC (RBC) [Mass/Vol] 30.0 g/dL Low 30.5 - 36.0 g/dL [facility] MCV (RBC) [Entitic vol] 93.4 fL 80.0 - 100.0 fL [facility] Monocytes (Bld) [#/Vol] 1.15 10*3/uL High NINF [facility] Monocytes/100 WBC (Bld) 12.1 % [facility] Neutrophils (Bld) [#/Vol] 7.29 10*3/uL [facility] Neutrophils/100 WBC (Bld) 76.9 % [facility] Nucleated RBC (Bld) [#/Vol] NINF [facility] Nucleated RBC/100 WBC (Bld) [Ratio] 0.0 % /100 WBC [facility] Platelet mean volume (Bld) [Entitic vol] 9.0 fL 9.0 - 12.7 fL [facility] Platelets (Bld) [#/Vol] 243 10*3/uL [facility] RBC (Bld) [#/Vol] 3.03 10*6/uL Low 3.90 - 5.2 0 m/uL [facility] WBC (Bld) [#/Vol] 9.49 10*3/uL [facility] Comprehensive metabolic 2000 panelOrdered By: Pam Tate on 02-24-2024 Albumin [Mass/Vol] 3.0 g/dL Low 3.9 - 4.9 g/dL [facility] ALP [Catalytic activity/Vol] 69 U/L 34 - 123 U/L [facility] ALT [Catalytic activity/Vol] 13 U/L 7 - 38 U/L [facility] Anion gap [Moles/Vol] 10 mmol/L 8 - 15 mmol/L [facility] [facility] AST [Catalytic activity/Vol] 21 U/L 13 - 35 U/L [facility] Bilirubin [Mass/Vol] 0.6 mg/dL 0.2 - 1 .3 mg/dL [facility] Calcium [Mass/Vol] 8.6 mg/dL 8.5 - 10. 2 mg/dL [facility] Chloride [Moles/Vol] 101 mmol/L 98 - 10 7 mmol/L [facility] CO2 [Moles/Vol] 21 mmol/L Low 22 - 30 mmol/L [facility] Creatinine [Mass/Vol] 0.67 mg/dL 0.58 - 0.96 mg/dL [facility] GFR/1.73 sq M.predicted among non-blacks MDRD (S/P/Bld) [Vol rate/Area] 85 mL/min/{1.73_m2} - PINF [facility] Comment on above: Estimated Glomerular Filtration Rate [...] 99 mg/dL [facility] Comment on above: The [place] [employer] (ADA) provides guidance for [...] Standards of Medical Care in Diabetes 2016, [place] [employer]. Diabetes Care. 2016.39(Suppl 1). Interpretation and review of laboratory results Abnormal [facility] Potassium [Moles/Vol] 4.4 mmol/L 3.7 - 5.1 mmol/L [facility] Protein [Mass/Vol] 8.0 g/dL 6.3 - 8.0 g/dL [facility] Sodium [Moles/Vol] 132 mmol/L Low 136 - 144 mmol/L [facility] Urea nitrogen [Mass/Vol] 16 mg/dL 7 - 21 mg/dL [facility] ESR Westergren method (Bld) [Velocity]on 02-24-2024 ESR (Bld) [Velocity] 123 mm/h High [facility] Interpretation and review of laboratory results Abnormal [facility] CBC W Auto Differential pane l (Bld)on 11-25-2023 Basophils (Bld) [#/Vol] 0.03 10*3/uL [facility] Basophils/100 WBC (Bld) 0.6 % [facility] Differential cell count method Nom (Bld) Auto [facility] Eosinophils (Bld) [#/Vol] [facility] Eosinophils/100 WBC (Bld) 0.4 % [facility] Erythrocyte distribution width (RBC) [Ratio] 15.0 % 11.5 - 15.0 % [facility] Hematocrit (Bld) [Volume fraction] 29.7 % Low 36.0 - 46.0 % [facility] Hemoglobin (Bld) [Mass/Vol] 9.8 g/dL Low 11.5 - 15.5 g/dL [facility] Immature granulocytes (Bld) [#/Vol] [facility] Immature granulocytes/100 WBC (Bld) 0.4 % [facility] Interpretation and review of laboratory results Abnormal [facility] Lymphocytes (Bld) [#/Vol] 0.54 10*3/uL Low [facility] Lymphocytes/100 WBC (Bld) 10.4 % [facility] MCH (RBC) [Entitic mass] 33.0 pg 26.0 - 34.0 pg [facility] MCHC (RBC) [Mass/Vol] 33.0 g/dL 30.5 - 36.0 g/dL [facility] MCV (RBC) [Entitic vol] 100.0 fL 80.0 - 100.0 fL [facility] Monocytes (Bld) [#/Vol] 0.46 10*3/uL [facility] Monocytes/100 WBC (Bld) 8.8 % [facility] Neutrophils (Bld) [#/Vol] 4.13 10*3/uL [facility] Neutrophils/100 WBC (Bld) 79.4 % [facility] Nucleated RBC (Bld) [#/Vol] [facility] Nucleated RBC/100 WBC (Bld) [Ratio] 0.0 % /100 WBC [facility] Platelet mean volume (Bld) [Entitic vol] 8.9 fL Low 9.0 - 12.7 fL [facility] Platelets (Bld) [#/Vol] 146 10*3/uL Low [facility] RBC (Bld) [#/Vol] 2.97 10*6/uL Low 3.90 - 5.2 0 m/uL [facility] WBC (Bld) [#/Vol] 5.20 10*3/uL [facility] Comprehensive metabolic 2000 panelOrdered By: Pam Tate on 11-25-2023 Albumin [Mass/Vol] 3.5 g/dL Low 3.9 - 4.9 g/dL [facility] ALP [Catalytic activity/Vol] 80 U/L 34 - 123 U/L [facility] ALT [Catalytic activity/Vol] 22 U/L 7 - 38 U/L [facility] Anion gap [Moles/Vol] 13 mmol/L 8 - 15 mmol/L [facility] AST [Catalytic activity/Vol] 31 U/L 13 - 35 U/L [facility] Bilirubin [Mass/Vol] 0.6 mg/dL 0.2 - 1 .3 mg/dL [facility] Calcium [Mass/Vol] 9.3 mg/dL 8.5 - 10. 2 mg/dL [facility] Chloride [Moles/Vol] 105 mmol/L 98 - 10 7 mmol/L [facility] CO2 [Moles/Vol] 21 mmol/L Low 22 - 30 mmol/L [facility] Creatinine [Mass/Vol] 0.63 mg/dL 0.58 - 0.96 mg/dL [facility] GFR/1.73 sq M.predicted among non-blacks MDRD (S/P/Bld) [Vol rate/Area] 86 mL/min/{1.73_m2} - PINF [facility] Comment on above: Estimated Glomerular Filtration Rate [...] 99 mg/dL [facility] Comment on above: The [place] [employer] (ADA) provides guidance for [...] Standards of Medical Care in Diabetes 2016, [place] [employer]. Diabetes Care. 2016.39(Suppl 1). Interpretation and review of laboratory results Abnormal [facility] Potassium [Moles/Vol] 4.0 mmol/L 3.7 - 5.1 mmol/L [facility] Protein [Mass/Vol] 8.0 g/dL 6.3 - 8.0 g/dL [facility] Sodium [Moles/Vol] 139 mmol/L 136 - 144 mmol/L [facility] Urea nitrogen [Mass/Vol] 15 mg/dL 7 - 21 mg/dL [facility] ESR Westergren method (Bld) [Velocity]on 11-25-2023 ESR (Bld) [Velocity] 129 mm/h High [facility] Interpretation and review of laboratory results Abnormal [facility] CBC W Auto Differential pane l (Bld)on 08-19-2023 Basophils (Bld) [#/Vol] 0.05 10*3/uL [facility] Basophils/100 WBC (Bld) 0.6 % [facility] Differential cell count method Nom (Bld) Auto [facility] Eosinophils (Bld) [#/Vol] 0.07 10*3/uL [facility] Eosinophils/100 WBC (Bld) 0.8 % [facility] Erythrocyte distribution width (RBC) [Ratio] 14.6 % 11.5 - 15.0 % [facility] Hematocrit (Bld) [Volume fraction] 34.7 % Low 36.0 - 46.0 % [facility] Hemoglobin (Bld) [Mass/Vol] 11.6 g/dL 11.5 - 15.5 g/dL [facility] Immature granulocytes (Bld) [#/Vol] 0.03 10*3/uL [facility] Immature granulocytes/100 WBC (Bld) 0.4 % [facility] Interpretation and review of laboratory results Abnormal [facility] Lymphocytes (Bld) [#/Vol] 0.67 10*3/uL Low [facility] Lymphocytes/100 WBC (Bld) 8.1 % [facility] MCH (RBC) [Entitic mass] 33.1 pg 26.0 - 34.0 pg [facility] MCHC (RBC) [Mass/Vol] 33.4 g/dL 30.5 - 36.0 g/dL [facility] MCV (RBC) [Entitic vol] 99.1 fL 80.0 - 100.0 fL [facility] Monocytes (Bld) [#/Vol] 1.02 10*3/uL High NINF [facility] Monocytes/100 WBC (Bld) 12.3 % [facility] Neutrophils (Bld) [#/Vol] 6.42 10*3/uL [facility] Neutrophils/100 WBC (Bld) 77.8 % [facility] Nucleated RBC (Bld) [#/Vol] NINF [facility] Nucleated RBC/100 WBC (Bld) [Ratio] 0.0 % /100 WBC [facility] Platelet mean volume (Bld) [Entitic vol] 8.7 fL Low 9.0 - 12.7 fL [facility] Platelets (Bld) [#/Vol] 169 10*3/uL [facility] RBC (Bld) [#/Vol] 3.50 10*6/uL Low 3.90 - 5.2 0 m/uL [facility] WBC (Bld) [#/Vol] 8.26 10*3/uL [facility] FERRITINon 08-19-2023 Ferritin [Mass/Vol] 147.0 ng/mL 14.7 - 205.1 ng/mL [facility] Ferritin [Mass/Vol]on 2023 Interpretation and review of laboratory results Normal [facility] Iron and Iron binding capaci ty panelon 08-19-2023 Interpretation and review of laboratory results Normal [facility] Iron [Mass/Vol] 87 ug/dL 41 - 186 ug/dL [facility] Iron binding capacity [Mass/Vol] 271 ug/dL 232 - 386 ug/dL [facility] Iron/TIBC [Molar ratio] 32.1 % 15.0 - 57.0 % [facility] C-REACTIVE PROTEINon 024 CRP [Mass/Vol] <0.9 mg/dL [facility] CBC W Auto Differential pane l (Bld)on 07-04-2023 Basophils (Bld) [#/Vol] <0.11 k/uL [facility] Basophils/100 WBC (Bld) 0.2 % [facility] Differential cell count method Nom (Bld) Auto [facility] Eosinophils (Bld) [#/Vol] 0.03 10*3/uL <0.46 k/uL [facility] Eosinophils/100 WBC (Bld) 0.3 % [facility] Erythrocyte distribution width (RBC) [Ratio] 14.8 % 11.5 - 15.0 % [facility] Hematocrit (Bld) [Volume fraction] 39.4 % 36.0 - 46.0 % [facility] Hemoglobin (Bld) [Mass/Vol] 13.2 g/dL 11.5 - 15.5 g/dL [facility] Immature granulocytes (Bld) [#/Vol] 0.06 10*3/uL <0.10 k/uL [facility] Immature granulocytes/100 WBC (Bld) 0.6 % [facility] Lymphocytes (Bld) [#/Vol] 0.84 10*3/uL Low 1.00 - 4.00 k/uL [facility] Lymphocytes/100 WBC (Bld) 8.1 % [facility] MCH (RBC) [Entitic mass] 33.0 pg 26.0 - 34.0 pg [facility] MCHC (RBC) [Mass/Vol] 33.5 g/dL 30.5 - 36.0 g/dL [facility] MCV (RBC) [Entitic vol] 98.5 fL 80.0 - 100.0 fL [facility] Monocytes (Bld) [#/Vol] 1.41 10*3/uL High <0.87 k/uL [facility] Monocytes/100 WBC (Bld) 13.6 % [facility] Neutrophils (Bld) [#/Vol] 8.02 10*3/uL High 1.45 - 7.50 k/uL [facility] Neutrophils/100 WBC (Bld) 77.2 % [facility] Nucleated RBC (Bld) [#/Vol] <0.01 k/uL [facility] Nucleated RBC/100 WBC (Bld) [Ratio] 0.0 /100 WBC [facility] Platelet mean volume (Bld) [Entitic vol] 9.4 fL 9.0 - 12.7 fL [facility] Platelets (Bld) [#/Vol] 151 10*3/uL 150 - 400 k/uL [facility] RBC (Bld) [#/Vol] 4.00 10*6/uL 3.90 - 5.2 0 m/uL [facility] WBC (Bld) [#/Vol] 10.38 10*3/uL 3.70 - 11.00 k/uL [facility] Comprehensive metabolic 2000 panelon 07-04-2023 Albumin [Mass/Vol] 3.5 g/dL Low 3.9 - 4.9 g/dL [facility] ALP [Catalytic activity/Vol] 80 U/L 34 - 123 U/L [facility] ALT [Catalytic activity/Vol] 51 U/L High 7 - 38 U/L [facility] Anion gap [Moles/Vol] 9 mmol/L 9 - 18 mmol/L [facility] AST [Catalytic activity/Vol] 43 U/L High 13 - 35 U/L [facility] Bilirubin [Mass/Vol] 0.8 mg/dL 0.2 - 1 .3 mg/dL [facility] Calcium [Mass/Vol] 9.7 mg/dL 8.5 - 10. 2 mg/dL [facility] Chloride [Moles/Vol] 105 mmol/L 97 - 10 5 mmol/L [facility] CO2 [Moles/Vol] 24 mmol/L 22 - 30 mmol/L [facility] Creatinine [Mass/Vol] 0.73 mg/dL 0.58 - 0.96 mg/dL [facility] Estimated Glomerular Filtration Rate 80 mL/min/1.73m >=60 mL/min/1.73 m [facility] Glucose [Mass/Vol] 85 mg/dL 74 - 99 mg/dL [facility] Potassium [Moles/Vol] 4.5 mmol/L 3.7 - 5.1 mmol/L [facility] Protein [Mass/Vol] 7.4 g/dL 6.3 - 8.0 g/dL [facility] Sodium [Moles/Vol] 138 mmol/L 136 - 144 mmol/L [facility] Urea nitrogen [Mass/Vol] 19 mg/dL 7 - 21 mg/dL [facility] ESR Westergren method (Bld) [Velocity]on 07-04-2023 ESR (Bld) [Velocity] 49 mm/h High 0 - 20 mm/hr [facility] RHEUMATOID FACTORon 07-04-19 24 Rheumatoid factor Qn 439 [IU]/mL High <16 IU/mL [facility] Absolute lymphocyte countOrd ered By: Payam Reyna on 06-30-2023 Lymphocytes Auto (Unsp spec) [#/Vol] 1.25 10*3/uL 0.83-4.51 [facility] Automated lymphocyte count a s percentage of total leukocytesOrdered By: Angelitoarline Herronjodi on 06-30-2023 Lymphocytes/100 WBC Auto (Unsp spec) 21.3 % 19-41 [facility] Basophil percentageOrdered B y: Payam Reyna on 06-30-2023 Basophils/100 WBC (Bld) 0.7 % 0-1 [facility] Bilirubin [Mass/Vol] 0.80 mg/dL 0.20-1.00 [facility] Comment on above: For patients on eltr ombopag therapy, use of [facility] TBIL is not recommended. Chloride [Moles/Vol] 110 mmol/L 98-107 [facility] Eosinophils/100 WBC (Bld) 1.5 % 0-5 [facility] Glucose [Mass/Vol] 74 mg/dL 74-106 [facility] Hemoglobin (Bld) [Mass/Vol] 11.0 g/dL 12.0-15.0 [facility] Monocytes/100 WBC (Bld) 11.9 % 0-10 [facility] Neutrophils (Bld) [#/Vol] 3.8 10*3/uL 2.0-7.7 [facility] Neutrophils/100 WBC (Bld) 64.1 % 47-70 [facility] Potassium [Moles/Vol] 4.0 mmol/L 3.5-5.1 [facility] Protein [Mass/Vol] 6.4 g/dL 6.4-8.2 [facility] Sodium [Moles/Vol] 142 mmol/L 136-145 [facility] WBC (Bld) [#/Vol] 5.9 10*3/uL 4.4-11.0 [facility] Determination of erythrocyte mean corpuscular volume (MCV)Ordered By: [facility] on 06-30-2023 MCV (RBC) [Entitic vol] 102.1 fL 81-99 [facility] Erythrocyte distribution wid th ratioOrdered By: [facility] on 06-30-2023 Erythrocyte distribution width (RBC) [Ratio] 15.0 % 11.6-14.6 [facility] Erythrocyte distribution wid th standard deviationOrdered By: [facility] on 06-30-2023 Erythrocyte distribution width (RBC) [Entitic vol] 55.3 fL 35.1-43.9 [facility] Hematocrit Auto (Bld) [Volum e fraction]Ordered By: [facility] on 06-30-2023 Hematocrit (Bld) [Volume fraction] 34.2 % 37-47 [facility] Immature granulocytes/100 WB C Auto (Bld)Ordered By: [facility] on 06-30-2023 Immature granulocytes/100 WBC (Bld) 0.500 % 0.0-0.9 [facility] Comment on above: IG% - Immature Granu locytes (promyelocytes, myelocytes and metamyelocytes) > 1% indicates that a LEFT SHIFT is Present. Laboratory - Chemistry and C hemistry - challengeOrdered By: [facility] Gopalalyssa on 06-30-2023 Albumin/Globulin [Mass ratio] 0.6 {ratio} 0.9-2.4 [facility] ALP [Catalytic activity/Vol] 59 U/L 45-117 [facility] ALT [Catalytic activity/Vol] 31 U/L 13-56 [facility] CO2 [Moles/Vol] 27.0 mmol/L 21.0-32.0 [facility] Globulin (S) [Mass/Vol] 4.0 g/dL 2.2-4.2 [facility] Urea nitrogen/Creatinine [Mass ratio] 23.6 mg/mg 10-20 [facility] Laboratory - Hematology and Cell countsOrdered By: [facility] Gopalalyssa on 06-30-2023 MCH (RBC) [Entitic mass] 32.8 pg 27.0-32.0 [facility] MCHC (RBC) [Mass/Vol] 32.2 g/dL 32-36 [facility] Nucleated RBC/100 WBC (Bld) [Ratio] 0 % 0-5 [facility] Platelet mean volume (Bld) [Entitic vol] 9.7 fL 6.2-12.0 [facility] Platelets (Bld) [#/Vol] 131 10*3/uL 150-450 [facility] No Panel InformationOrdered By: Payam Reyna on 06-30-2023 Estimated GFR (MDRD) Amer 123 mL/min >60 [facility] Comment on above: GFR Calc Estimated GFR (MDRD) Non-Af Amer 102 mL/min >60 [facility] Comment on above: Non- GFR Calc RBC Auto (Bld) [#/Vol]Ordere d By: Payam Reyna on 06-30-2023 RBC (Bld) [#/Vol] 3.35 10*6/uL 4.2-5.4 [facility] Serum or plasma calcium yonatan urement (mass/volume)Ordered By: Payam Reyna on 06-30-2023 Calcium [Mass/Vol] 8.5 mg/dL 8.5-10.1 [facility] Serum or plasma creatinine m easurement (mass/volume)Ordered By: Payam Reyna on 06-30-2023 Creatinine [Mass/Vol] 0.59 mg/dL 0.55-1.02 [facility] Comment on above: The validity of the calculated GFR & GFRAA in patients over 70 years has not been determined. Clinical correlation is essential. Serum or plasma urea nitroge n measurement (mass/volume)Ordered By: Payam Reyna on 06-30-2023 Urea nitrogen [Mass/Vol] 14 mg/dL 7-18 [facility] Thin prep Papanicolaou smear with manual screeningOrdered By: Payam Reyna on 06-30-2023 Thin prep Papanicolaou smear with manual screening 2.4 g/dL 3.2-5.0 [facility] Thin prep Papanicolaou smear with manual screening 27 U/L 15-37 [facility] Thin prep Papanicolaou smear with manual screening 5 5-15 [facility] Absolute lymphocyte countOrd ered By: Payam Reyna on 06-02-2023 Lymphocytes Auto (Unsp spec) [#/Vol] 1.12 10*3/uL 0.83-4.51 [facility] Automated lymphocyte count a s percentage of total leukocytesOrdered By: Payam Reyna on 06-02-2023 Lymphocytes/100 WBC Auto (Unsp spec) 18.1 % 19-41 [facility] Basophil percentageOrdered B y: Payam Reyna on 06-02-2023 Basophils/100 WBC (Bld) 0.5 % 0-1 [facility] Bilirubin [Mass/Vol] 0.60 mg/dL 0.20-1.00 [facility] Comment on above: For patients on eltr ombopag therapy, use of [facility] TBIL is not recommended. Chloride [Moles/Vol] 110 mmol/L 98-107 [facility] Eosinophils/100 WBC (Bld) 1.5 % 0-5 [facility] Glucose [Mass/Vol] 76 mg/dL 74-106 [facility] Hemoglobin (Bld) [Mass/Vol] 11.3 g/dL 12.0-15.0 [facility] Monocytes/100 WBC (Bld) 9.5 % 0-10 [facility] Neutrophils (Bld) [#/Vol] 4.3 10*3/uL 2.0-7.7 [facility] Neutrophils/100 WBC (Bld) 69.9 % 47-70 [facility] Potassium [Moles/Vol] 4.1 mmol/L 3.5-5.1 [facility] Protein [Mass/Vol] 6.8 g/dL 6.4-8.2 [facility] Sodium [Moles/Vol] 140 mmol/L 136-145 [facility] WBC (Bld) [#/Vol] 6.2 10*3/uL 4.4-11.0 [facility] Determination of erythrocyte mean corpuscular volume (MCV)Ordered By: Payam Reyna on 06-02-2023 MCV (RBC) [Entitic vol] 101.2 fL 81-99 [facility] Erythrocyte distribution wid th ratioOrdered By: Payam Reyna on 06-02-2023 Erythrocyte distribution width (RBC) [Ratio] 14.1 % 11.6-14.6 [facility] Erythrocyte distribution wid th standard deviationOrdered By: [facility] on 06-02-2023 Erythrocyte distribution width (RBC) [Entitic vol] 52.1 fL 35.1-43.9 [facility] Hematocrit Auto (Bld) [Volum e fraction]Ordered By: Payam Reyna on 06-02-2023 Hematocrit (Bld) [Volume fraction] 34.1 % 37-47 [facility] Immature granulocytes/100 WB C Auto (Bld)Ordered By: [facility] Herronalyssa on 06-02-2023 Immature granulocytes/100 WBC (Bld) 0.500 % 0.0-0.9 [facility] Comment on above: IG% - Immature Granu locytes (promyelocytes, myelocytes and metamyelocytes) > 1% indicates that a LEFT SHIFT is Present. Laboratory - Chemistry and C hemistry - challengeOrdered By: merylroyaltongarfield Herronalyssa on 06-02-2023 Albumin/Globulin [Mass ratio] 0.5 {ratio} 0.9-2.4 [facility] ALP [Catalytic activity/Vol] 67 U/L 45-117 [facility] ALT [Catalytic activity/Vol] 25 U/L 13-56 [facility] CO2 [Moles/Vol] 26.0 mmol/L 21.0-32.0 [facility] Globulin (S) [Mass/Vol] 4.4 g/dL 2.2-4.2 [facility] Urea nitrogen/Creatinine [Mass ratio] 21.1 mg/mg 10-20 [facility] Laboratory - Hematology and Cell countsOrdered By: [facility] on 06-02-2023 MCH (RBC) [Entitic mass] 33.5 pg 27.0-32.0 [facility] MCHC (RBC) [Mass/Vol] 33.1 g/dL 32-36 [facility] Nucleated RBC/100 WBC (Bld) [Ratio] 0 % 0-5 [facility] Platelet mean volume (Bld) [Entitic vol] 9.4 fL 6.2-12.0 [facility] Platelets (Bld) [#/Vol] 144 10*3/uL 150-450 [facility] No Panel InformationOrdered By: Payam Reyna on 06-02-2023 Estimated GFR (MDRD) Amer 118 mL/min >60 [facility] Comment on above: GFR Calc Estimated GFR (MDRD) Non-Af Amer 97 mL/min >60 [facility] Comment on above: Non- GFR Calc RBC Auto (Bld) [#/Vol]Ordere d By: Payam Reyna on 06-02-2023 RBC (Bld) [#/Vol] 3.37 10*6/uL 4.2-5.4 [facility] Serum or plasma calcium yonatan urement (mass/volume)Ordered By: Payam Reyna on 06-02-2023 Calcium [Mass/Vol] 9.1 mg/dL 8.5-10.1 [facility] Serum or plasma creatinine m easurement (mass/volume)Ordered By: Payam Reyna on 06-02-2023 Creatinine [Mass/Vol] 0.62 mg/dL 0.55-1.02 [facility] Comment on above: The validity of the calculated GFR & GFRAA in patients over 70 years has not been determined. Clinical correlation is essential. Serum or plasma urea nitroge n measurement (mass/volume)Ordered By: Payam Reyna on 06-02-2023 Urea nitrogen [Mass/Vol] 13 mg/dL 7-18 [facility] Thin prep Papanicolaou smear with manual screeningOrdered By: Payam Reyna on 06-02-2023 Thin prep Papanicolaou smear with manual screening 2.4 g/dL 3.2-5.0 [facility] Thin prep Papanicolaou smear with manual screening 26 U/L 15-37 [facility] Thin prep Papanicolaou smear with manual screening 4 5-15 [facility] Absolute lymphocyte countOrd ered By: Payam Reyna on 05-05-2023 Lymphocytes Auto (Unsp spec) [#/Vol] 1.25 10*3/uL 0.83-4.51 [facility] Automated lymphocyte count a s percentage of total leukocytesOrdered By: Payam Reyna on 05-05-2023 Lymphocytes/100 WBC Auto (Unsp spec) 17.8 % 19-41 [facility] Basophil percentageOrdered B y: Payam Reyna on 05-05-2023 Basophils/100 WBC (Bld) 0.6 % 0-1 [facility] Bilirubin [Mass/Vol] 0.80 mg/dL 0.20-1.00 [facility] Comment on above: For patients on eltr ombopag therapy, use of [facility] TBIL is not recommended. Chloride [Moles/Vol] 112 mmol/L 98-107 [facility] Eosinophils/100 WBC (Bld) 1.6 % 0-5 [facility] Glucose [Mass/Vol] 76 mg/dL 74-106 [facility] Hemoglobin (Bld) [Mass/Vol] 11.6 g/dL 12.0-15.0 [facility] Monocytes/100 WBC (Bld) 11.1 % 0-10 [facility] Neutrophils (Bld) [#/Vol] 4.8 10*3/uL 2.0-7.7 [facility] Neutrophils/100 WBC (Bld) 68.5 % 47-70 [facility] Potassium [Moles/Vol] 4.0 mmol/L 3.5-5.1 [facility] Protein [Mass/Vol] 6.7 g/dL 6.4-8.2 [facility] Sodium [Moles/Vol] 142 mmol/L 136-145 [facility] [facility] WBC (Bld) [#/Vol] 7.0 10*3/uL 4.4-11.0 [facility] Determination of erythrocyte mean corpuscular volume (MCV)Ordered By: Payam Reyna on 05-05-2023 MCV (RBC) [Entitic vol] 102.3 fL 81-99 [facility] Erythrocyte distribution wid th ratioOrdered By: Payam Reyna on 05-05-2023 Erythrocyte distribution width (RBC) [Ratio] 14.0 % 11.6-14.6 [facility] Erythrocyte distribution wid th standard deviationOrdered By: Payam Reyna on 05-05-2023 Erythrocyte distribution width (RBC) [Entitic vol] 51.9 fL 35.1-43.9 [facility] Hematocrit Auto (Bld) [Volum e fraction]Ordered By: Payam Reyna on 05-05-2023 Hematocrit (Bld) [Volume fraction] 35.7 % 37-47 [facility] Immature granulocytes/100 WB C Auto (Bld)Ordered By: Payam Reyna on 05-05-2023 Immature granulocytes/100 WBC (Bld) 0.400 % 0.0-0.9 [facility] Comment on above: IG% - Immature Granu locytes (promyelocytes, myelocytes and metamyelocytes) > 1% indicates that a LEFT SHIFT is Present. Laboratory - Chemistry and C hemistry - challengeOrdered By: Payam Reyna on 05-05-2023 Albumin/Globulin [Mass ratio] 0.6 {ratio} 0.9-2.4 [facility] ALP [Catalytic activity/Vol] 56 U/L 45-117 [facility] ALT [Catalytic activity/Vol] 24 U/L 13-56 [facility] CO2 [Moles/Vol] 26.0 mmol/L 21.0-32.0 [facility] Globulin (S) [Mass/Vol] 4.3 g/dL 2.2-4.2 [facility] Urea nitrogen/Creatinine [Mass ratio] 16.0 mg/mg 10-20 [facility] Laboratory - Hematology and Cell countsOrdered By: Payam Reyna on 05-05-2023 MCH (RBC) [Entitic mass] 33.2 pg 27.0-32.0 [facility] MCHC (RBC) [Mass/Vol] 32.5 g/dL 32-36 [facility] Nucleated RBC/100 WBC (Bld) [Ratio] 0 % 0-5 [facility] Platelet mean volume (Bld) [Entitic vol] 9.4 fL 6.2-12.0 [facility] Platelets (Bld) [#/Vol] 144 10*3/uL 150-450 [facility] No Panel InformationOrdered By: Payam Reyna on 05-05-2023 Estimated GFR (MDRD) Amer 104 mL/min >60 [facility] Comment on above: GFR Calc Estimated GFR (MDRD) Non-Af Amer 86 mL/min >60 [facility] Comment on above: Non- GFR Calc RBC Auto (Bld) [#/Vol]Ordere d By: Payam Reyna on 05-05-2023 RBC (Bld) [#/Vol] 3.49 10*6/uL 4.2-5.4 [facility] Serum or plasma calcium yonatan urement (mass/volume)Ordered By: Payam Reyna on 05-05-2023 Calcium [Mass/Vol] 9.0 mg/dL 8.5-10.1 [facility] Serum or plasma creatinine m easurement (mass/volume)Ordered By: Payam Reyna on 05-05-2023 Creatinine [Mass/Vol] 0.69 mg/dL 0.55-1.02 [facility] Comment on above: The validity of the calculated GFR & GFRAA in patients over 70 years has not been determined. Clinical correlation is essential. Serum or plasma thyroid stim ulating hormone (TSH) measurement (units/volume)Ordered By: Payam Reyna on 05-05-2023 TSH Qn 1.84 uIU/mL 0.358-3.74 [facility] Serum or plasma urea nitroge n measurement (mass/volume)Ordered By: Payam Reyna on 05-05-2023 Urea nitrogen [Mass/Vol] 11 mg/dL 7-18 [facility] Thin prep Papanicolaou smear with manual screeningOrdered By: Payam Reyna on 05-05-2023 Thin prep Papanicolaou smear with manual screening 2.4 g/dL 3.2-5.0 [facility] Thin prep Papanicolaou smear with manual screening 16 U/L 15-37 [facility] Thin prep Papanicolaou smear with manual screening 4 5-15 [facility] Absolute lymphocyte countOrd ered By: Payam Reyna on 03-31-2023 Lymphocytes Auto (Unsp spec) [#/Vol] 1.66 10*3/uL 0.83-4.51 [facility] Basophil percentageOrdered B y: Payam Reyna on 03-31-2023 Basophils/100 WBC (Bld) 0.7 % 0-1 [facility] Bilirubin [Mass/Vol] 0.60 mg/dL 0.20-1.00 [facility] Comment on above: For patients on eltr ombopag therapy, use of [facility] TBIL is not recommended. Chloride [Moles/Vol] 109 mmol/L 98-107 [facility] Eosinophils/100 WBC (Bld) 1.1 % 0-5 [facility] Glucose [Mass/Vol] 69 mg/dL 74-106 [facility] Neutrophils (Bld) [#/Vol] 4.8 10*3/uL 2.0-7.7 [facility] Neutrophils/100 WBC (Bld) 65.4 % 47-70 [facility] Potassium [Moles/Vol] 4.1 mmol/L 3.5-5.1 [facility] Protein [Mass/Vol] 7.0 g/dL 6.4-8.2 [facility] Sodium [Moles/Vol] 142 mmol/L 136-145 [facility] WBC (Bld) [#/Vol] 7.4 10*3/uL 4.4-11.0 [facility] Blood erythrocytes count (nu mber/volume)Ordered By: Payam Reyna on 03-31-2023 RBC (Bld) [#/Vol] 3.54 10*6/uL 4.2-5.4 [facility] Blood hemoglobin measurement (mass/volume)Ordered By: aPyam Reyna on 03-31-2023 Hemoglobin (Bld) [Mass/Vol] 12.3 g/dL 12.0-15.0 [facility] Blood lymphocytes/100 leukoc ytesOrdered By: Payam Reyna on 03-31-2023 Lymphocytes/100 WBC (Bld) 22.5 % 19-41 [facility] Blood monocytes/100 leukocyt esOrdered By: Payam Reyna on 03-31-2023 Monocytes/100 WBC (Bld) 9.8 % 0-10 [facility] Blood platelet mean volumeOr dered By: Payam Reyna on 03-31-2023 Platelet mean volume (Bld) [Entitic vol] 9.9 fL 6.2-12.0 [facility] Determination of erythrocyte mean corpuscular volume (MCV)Ordered By: Payam Reyna on 03-31-2023 MCV (RBC) [Entitic vol] 103.7 fL 81-99 [facility] Hematocrit Auto (Bld) [Volum e fraction]Ordered By: Payam Reyna on 03-31-2023 Hematocrit (Bld) [Volume fraction] 36.7 % 37-47 [facility] Laboratory - Chemistry and C hemistry - challengeOrdered By: Payam Reyna on 03-31-2023 ALP [Catalytic activity/Vol] 60 U/L 45-117 [facility] ALT [Catalytic activity/Vol] 26 U/L 13-56 [facility] CO2 [Moles/Vol] 27.0 mmol/L 21.0-32.0 [facility] Globulin (S) [Mass/Vol] 4.2 g/dL 2.2-4.2 [facility] Urea nitrogen/Creatinine [Mass ratio] 19.8 mg/mg 10-20 [facility] Laboratory - Hematology and Cell countsOrdered By: Jasroyaltongarfield Reyna on 03-31-2023 Erythrocyte distribution width (RBC) [Entitic vol] 51.9 fL 35.1-43.9 [facility] Erythrocyte distribution width (RBC) [Ratio] 13.6 % 11.6-14.6 [facility] Immature granulocytes/100 WBC (Bld) 0.500 % 0.0-0.9 [facility] Comment on above: IG% - Immature Granu locytes (promyelocytes, myelocytes and metamyelocytes) > 1% indicates that a LEFT SHIFT is Present. MCH (RBC) [Entitic mass] 34.7 pg 27.0-32.0 [facility] Nucleated RBC/100 WBC (Bld) [Ratio] 0 % 0-5 [facility] MCHC Auto (RBC) [Mass/Vol]Or dered By: Payam Reyna on 03-31-2023 MCHC (RBC) [Mass/Vol] 33.5 g/dL 32-36 [facility] No Panel InformationOrdered By: Payam Reyna on 03-31-2023 Estimated GFR (MDRD) Amer 120 mL/min >60 [facility] Comment on above: GFR Calc Estimated GFR (MDRD) Non-Af Amer 99 mL/min >60 [facility] Comment on above: Non- GFR Calc Platelets bldOrdered By: Fredy Reyna on 03-31-2023 Platelets (Bld) [#/Vol] 139 10*3/uL 150-450 [facility] Serum or plasma albumin yonatan urement (mass/volume)Ordered By: Payam Reyna on 03-31-2023 Albumin [Mass/Vol] 2.8 g/dL 3.2-5.0 [facility] Serum or plasma albumin/glob ulin mass ratioOrdered By: Payam Reyna on 03-31-2023 Albumin/Globulin [Mass ratio] 0.7 {ratio} 0.9-2.4 [facility] Serum or plasma calcium yonatan urement (mass/volume)Ordered By: Payam Reyna on 03-31-2023 Calcium [Mass/Vol] 9.1 mg/dL 8.5-10.1 [facility] Serum or plasma creatinine m easurement (mass/volume)Ordered By: Payam Reyna on 03-31-2023 Creatinine [Mass/Vol] 0.61 mg/dL 0.55-1.02 [facility] Comment on above: The validity of the calculated GFR & GFRAA in patients over 70 years has not been determined. Clinical correlation is essential. Serum or plasma urea nitroge n measurement (mass/volume)Ordered By: Payam Reyna on 03-31-2023 Urea nitrogen [Mass/Vol] 12 mg/dL -18 [facility] Thin prep Papanicolaou smear with manual screeningOrdered By: Payam Reyna on 03-31-2023 Thin prep Papanicolaou smear with manual screening 22 U/L 1537 [facility] Thin prep Papanicolaou smear with manual screening 6 5-15 [facility] Absolute lymphocyte countOrd ered By: Payam Reyna on 03-03-2023 Lymphocytes Auto (Unsp spec) [#/Vol] 1.95 10*3/uL 0.83-4.51 [facility] Basophil percentageOrdered B y: Angelitoarline Herronjodi on 03-03-2023 Basophils/100 WBC (Bld) 0.5 % 0-1 [facility] Bilirubin [Mass/Vol] 0.80 mg/dL 0.20-1.00 [facility] Comment on above: For patients on eltr ombopag therapy, use of [facility] TBIL is not recommended. Chloride [Moles/Vol] 109 mmol/L 98-107 [facility] Eosinophils/100 WBC (Bld) 1.6 % 0-5 [facility] Glucose [Mass/Vol] 67 mg/dL 74-106 [facility] Neutrophils (Bld) [#/Vol] 4.4 10*3/uL 2.0-7.7 [facility] Neutrophils/100 WBC (Bld) 60.1 % 47-70 [facility] Potassium [Moles/Vol] 4.2 mmol/L 3.5-5.1 [facility] Protein [Mass/Vol] 7.3 g/dL 6.4-8.2 [facility] Sodium [Moles/Vol] 142 mmol/L 136-145 [facility] WBC (Bld) [#/Vol] 7.4 10*3/uL 4.4-11.0 [facility] Blood erythrocytes count (nu mber/volume)Ordered By: Payam Reyna on 03-03-2023 RBC (Bld) [#/Vol] 3.61 10*6/uL 4.2-5.4 [facility] Blood hemoglobin measurement (mass/volume)Ordered By: Payam Reyna on 03-03-2023 Hemoglobin (Bld) [Mass/Vol] 12.6 g/dL 12.0-15.0 [facility] Blood lymphocytes/100 leukoc ytesOrdered By: Payam Reyna on 03-03-2023 Lymphocytes/100 WBC (Bld) 26.4 % 19-41 [facility] Blood monocytes/100 leukocyt esOrdered By: Payam Reyna on 03-03-2023 Monocytes/100 WBC (Bld) 10.7 % 0-10 [facility] Blood platelet mean volumeOr dered By: Payam Reyna on 03-03-2023 Platelet mean volume (Bld) [Entitic vol] 9.8 fL 6.2-12.0 [facility] Determination of erythrocyte mean corpuscular volume (MCV)Ordered By: Payam Reyna on 03-03-2023 MCV (RBC) [Entitic vol] 104.7 fL 81-99 [facility] Hematocrit Auto (Bld) [Volum e fraction][facility]: [facility] on 03-03-2023 Hematocrit (Bld) [Volume fraction] 37.8 % 37-47 [facility] Laboratory - Chemistry and C hemistry - challengeOrdered By: merylroyaltongarfield Reyna on 03-03-2023 ALP [Catalytic activity/Vol] 71 U/L 45-117 [facility] ALT [Catalytic activity/Vol] 38 U/L 13-56 [facility] CO2 [Moles/Vol] 28.0 mmol/L 21.0-32.0 [facility] Globulin (S) [Mass/Vol] 4.3 g/dL 2.2-4.2 [facility] Urea nitrogen/Creatinine [Mass ratio] 20.3 mg/mg 10-20 [facility] Laboratory - Hematology and Cell countsOrdered By: Jasroyaltongarfield Reyna on 03-03-2023 Erythrocyte distribution width (RBC) [Entitic vol] 53.8 fL 35.1-43.9 [facility] Erythrocyte distribution width (RBC) [Ratio] 14.0 % 11.6-14.6 [facility] Immature granulocytes/100 WBC (Bld) 0.700 % 0.0-0.9 [facility] Comment on above: IG% - Immature Granu locytes (promyelocytes, myelocytes and metamyelocytes) > 1% indicates that a LEFT SHIFT is Present. MCH (RBC) [Entitic mass] 34.9 pg 27.0-32.0 [facility] Nucleated RBC/100 WBC (Bld) [Ratio] 0 % 0-5 [facility] MCHC Auto (RBC) [Mass/Vol]Or dered By: Payam Reyna on 03-03-2023 MCHC (RBC) [Mass/Vol] 33.3 g/dL 32-36 [facility] No Panel InformationOrdered By: Payam Reyna on 03-03-2023 Estimated GFR (MDRD) Amer 96 mL/min >60 [facility] Comment on above: GFR Calc Estimated GFR (MDRD) Non-Af Amer 79 mL/min >60 [facility] Comment on above: Non- GFR Calc Platelets bldOrdered By: Fredy Reyna on 03-03-2023 Platelets (Bld) [#/Vol] 141 10*3/uL 150-450 [facility] Serum or plasma albumin yonatan urement (mass/volume)Ordered By: Payam Reyna on 03-03-2023 Albumin [Mass/Vol] 3.0 g/dL 3.2-5.0 [facility] Serum or plasma albumin/glob ulin mass ratioOrdered By: Payam Reyna on 03-03-2023 Albumin/Globulin [Mass ratio] 0.7 {ratio} 0.9-2.4 [facility] Serum or plasma calcium yonatan urement (mass/volume)Ordered By: Payam Reyna on 03-03-2023 Calcium [Mass/Vol] 9.0 mg/dL 8.5-10.1 [facility] Serum or plasma creatinine m easurement (mass/volume)Ordered By: Payam Reyna on 03-03-2023 Creatinine [Mass/Vol] 0.74 mg/dL 0.55-1.02 [facility] Comment on above: The validity of the calculated GFR & GFRAA in patients over 70 years has not been determined. Clinical correlation is essential. Serum or plasma urea nitroge n measurement (mass/volume)Ordered By: Payam Reyna on 03-03-2023 Urea nitrogen [Mass/Vol] 15 mg/dL 7-18 [facility] Thin prep Papanicolaou smear with manual screeningOrdered By: Payam Reyna on 03-03-2023 Thin prep Papanicolaou smear with manual screening 38 U/L 15-37 [facility] Thin prep Papanicolaou smear with manual screening 5 5-15 [facility] Absolute lymphocyte countOrd ered By: Payam Reyna on 02-03-2023 Lymphocytes Auto (Unsp spec) [#/Vol] 1.74 10*3/uL 0.83-4.51 [facility] Basophil percentageOrdered B y: Jasmichaelgarfield Reyna on 02-03-2023 Basophils/100 WBC (Bld) 0.6 % 0-1 [facility] Bilirubin [Mass/Vol] 0.70 mg/dL 0.20-1.00 [facility] Comment on above: For patients on eltr ombopag therapy, use of [facility] TBIL is not recommended. Chloride [Moles/Vol] 108 mmol/L 98-107 [facility] Eosinophils/100 WBC (Bld) 1.4 % 0-5 [facility] Glucose [Mass/Vol] 79 mg/dL 74-106 [facility] Neutrophils (Bld) [#/Vol] 4.5 10*3/uL 2.0-7.7 [facility] Neutrophils/100 WBC (Bld) 62.8 % 47-70 [facility] Potassium [Moles/Vol] 3.8 mmol/L 3.5-5.1 [facility] Protein [Mass/Vol] 7.3 g/dL 6.4-8.2 [facility] Sodium [Moles/Vol] 141 mmol/L 136-145 [facility] WBC (Bld) [#/Vol] 7.1 10*3/uL 4.4-11.0 [facility] Blood erythrocytes count (nu mber/volume)Ordered By: Payam Reyna on 02-03-2023 RBC (Bld) [#/Vol] 3.58 10*6/uL 4.2-5.4 [facility] Blood hemoglobin measurement (mass/volume)Ordered By: Payam Reyna on 02-03-2023 Hemoglobin (Bld) [Mass/Vol] 12.3 g/dL 12.0-15.0 [facility] Blood lymphocytes/100 leukoc ytesOrdered By: Payam Reyna on 02-03-2023 Lymphocytes/100 WBC (Bld) 24.5 % 19-41 [facility] Blood monocytes/100 leukocyt esOrdered By: Payam Reyna on 02-03-2023 Monocytes/100 WBC (Bld) 10.4 % 0-10 [facility] Blood platelet mean volumeOr dered By: arline Reyna on 02-03-2023 Platelet mean volume (Bld) [Entitic vol] 9.4 fL 6.2-12.0 [facility] Determination of erythrocyte mean corpuscular volume (MCV)Ordered By: Payam Reyna on 02-03-2023 MCV (RBC) [Entitic vol] 103.9 fL 81-99 [facility] Hematocrit Auto (Bld) [Volum e fraction]Or[facility] By: [facility] on 02-03-2023 Hematocrit (Bld) [Volume fraction] 37.2 % 37-47 [facility] Laboratory - Chemistry and C hemistry - challengeOrdered By: [facility] Herronalyssa on 02-03-2023 ALP [Catalytic activity/Vol] 88 U/L 45-117 [facility] ALT [Catalytic activity/Vol] 36 U/L 13-56 [facility] CO2 [Moles/Vol] 27.0 mmol/L 21.0-32.0 [facility] Globulin (S) [Mass/Vol] 4.5 g/dL 2.2-4.2 [facility] Urea nitrogen/Creatinine [Mass ratio] 22.9 mg/mg 10-20 [facility] Laboratory - Hematology and Cell countsOrdered By: merylroyaltongarfield Herronalyssa on 02-03-2023 Erythrocyte distribution width (RBC) [Entitic vol] 55.1 fL 35.1-43.9 [facility] Erythrocyte distribution width (RBC) [Ratio] 14.5 % 11.6-14.6 [facility] Immature granulocytes/100 WBC (Bld) 0.300 % 0.0-0.9 [facility] Comment on above: IG% - Immature Granu locytes (promyelocytes, myelocytes and metamyelocytes) > 1% indicates that a LEFT SHIFT is Present. MCH (RBC) [Entitic mass] 34.4 pg 27.0-32.0 [facility] Nucleated RBC/100 WBC (Bld) [Ratio] 0 % 0-5 [facility] Auto (RBC) [Mass/Vol]Or dered By: Payam Reyna on 02-03-2023 MCHC (RBC) [Mass/Vol] 33.1 g/dL 32-36 [facility] No Panel InformationOrdered By: Payam Reyna on 02-03-2023 Estimated GFR (MDRD) Amer 110 mL/min >60 [facility] Comment on above: GFR Calc Estimated GFR (MDRD) Non-Af Amer 91 mL/min >60 [facility] Comment on above: Non- GFR Calc Platelets bldOrdered By: Fredy Reyna on 02-03-2023 Platelets (Bld) [#/Vol] 134 10*3/uL 150-450 [facility] Serum or plasma albumin yonatan urement (mass/volume)Ordered By: Payam Reyna on 02-03-2023 Albumin [Mass/Vol] 2.8 g/dL 3.2-5.0 [facility] Serum or plasma albumin/glob ulin mass ratioOrdered By: Payam Reyna on 02-03-2023 Albumin/Globulin [Mass ratio] 0.6 {ratio} 0.9-2.4 [facility] Serum or plasma calcium yonatan urement (mass/volume)Ordered By: Payam Reyna on 02-03-2023 Calcium [Mass/Vol] 9.2 mg/dL 8.5-10.1 [facility] Serum or plasma creatinine m easurement (mass/volume)Ordered By: Payam Reyna on 02-03-2023 Creatinine [Mass/Vol] 0.66 mg/dL 0.55-1.02 [facility] Comment on above: The validity of the calculated GFR & GFRAA in patients over 70 years has not been determined. Clinical correlation is essential. Serum or plasma urea nitroge n measurement (mass/volume)Ordered By: Payam Reyna on 02-03-2023 Urea nitrogen [Mass/Vol] 15 mg/dL 7-18 [facility] Thin prep Papanicolaou smear with manual screeningOrdered By: Payam Reyna on 02-03-2023 Thin prep Papanicolaou smear with manual screening 29 U/L 15-37 [facility] Thin prep Papanicolaou smear with manual screening 6 5-15 [facility] Absolute lymphocyte countOrd ered By: Payam Reyna on 12-30-2022 Lymphocytes Auto (Unsp spec) [#/Vol] 1.24 10*3/uL 0.83-4.51 [facility] Basophil percentageOrdered B y: Payam Reyna on 12-30-2022 Basophils/100 WBC (Bld) 0.8 % 0-1 [facility] Bilirubin [Mass/Vol] 0.60 mg/dL 0.20-1.00 [facility] Comment on above: For patients on eltr ombopag therapy, use of [facility] TBIL is not recommended. Chloride [Moles/Vol] 111 mmol/L 98-107 [facility] Eosinophils/100 WBC (Bld) 2.6 % 0-5 [facility] Glucose [Mass/Vol] 81 mg/dL 74-106 [facility] Neutrophils (Bld) [#/Vol] 2.9 10*3/uL 2.0-7.7 [facility] Neutrophils/100 WBC (Bld) 57.5 % 47-70 [facility] Potassium [Moles/Vol] 4.1 mmol/L 3.5-5.1 [facility] Protein [Mass/Vol] 6.8 g/dL 6.4-8.2 [facility] Sodium [Moles/Vol] 141 mmol/L 136-145 [facility] WBC (Bld) [#/Vol] 5.0 10*3/uL 4.4-11.0 [facility] Blood erythrocytes count (nu mber/volume)Ordered By: Payam Reyna on 12-30-2022 RBC (Bld) [#/Vol] 3.26 10*6/uL 4.2-5.4 [facility] Blood hemoglobin measurement (mass/volume)Ordered By: Payam Reyna on 12-30-2022 Hemoglobin (Bld) [Mass/Vol] 11.8 g/dL 12.0-15.0 [facility] Blood lymphocytes/100 leukoc ytesOrdered By: Payam Reyna on 12-30-2022 Lymphocytes/100 WBC (Bld) 25.0 % 19-41 [facility] Blood monocytes/100 leukocyt esOrdered By: [facility] on 12-30-2022 Monocytes/100 WBC (Bld) 13.9 % 0-10 [facility] Blood platelet mean volumeOr dered By: arline Reyna on 12-30-2022 Platelet mean volume (Bld) [Entitic vol] 10.1 fL 6.2-12.0 [facility] Determination of erythrocyte mean corpuscular volume (MCV)Ordered By: merylroyaltongarfield Reyna on 12-30-2022 MCV (RBC) [Entitic vol] 104.6 fL 81-99 [facility] Hematocrit Auto (Bld) [Volum e fraction]Ordered By: [facility] Herronalyssa on 12-30-2022 Hematocrit (Bld) [Volume fraction] 34.1 % 37-47 [facility] Laboratory - Chemistry and C hemistry - challengeOrdered By: arline Reyna on 12-30-2022 ALP [Catalytic activity/Vol] 89 U/L 45-117 [facility] ALT [Catalytic activity/Vol] 25 U/L 13-56 [facility] CO2 [Moles/Vol] 25.0 mmol/L 21.0-32.0 [facility] Globulin (S) [Mass/Vol] 4.0 g/dL 2.2-4.2 [facility] Urea nitrogen/Creatinine [Mass ratio] 21.3 mg/mg 10-20 [facility] Laboratory - Hematology and Cell countsOrdered By: arline Herronalyssa on 12-30-2022 Erythrocyte distribution width (RBC) [Entitic vol] 53.4 fL 35.1-43.9 [facility] Erythrocyte distribution width (RBC) [Ratio] 14.1 % 11.6-14.6 [facility] Immature granulocytes/100 WBC (Bld) 0.200 % 0.0-0.9 [facility] Comment on above: IG% - Immature Granu locytes (promyelocytes, myelocytes and metamyelocytes) > 1% indicates that a LEFT SHIFT is Present. MCH (RBC) [Entitic mass] 36.2 pg 27.0-32.0 [facility] Nucleated RBC/100 WBC (Bld) [Ratio] 0 % 0-5 [facility] MCHC Auto (RBC) [Mass/Vol]Or dered By: Payam Reyna on 12-30-2022 MCHC (RBC) [Mass/Vol] 34.6 g/dL 32-36 [facility] No Panel InformationOrdered By: Payam Reyna on 12-30-2022 Estimated GFR (MDRD) Amer 120 mL/min >60 [facility] Comment on above: GFR Calc Estimated GFR (MDRD) Non-Af Amer 99 mL/min >60 [facility] Comment on above: Non- GFR Calc Platelets bldOrdered By: Fredy Reyna on 12-30-2022 Platelets (Bld) [#/Vol] 111 10*3/uL 150-450 [facility] Serum or plasma albumin ynoatan urement (mass/volume)Ordered By: Payam Reyna on 12-30-2022 Albumin [Mass/Vol] 2.8 g/dL 3.2-5.0 [facility] Serum or plasma albumin/glob ulin mass ratioOrdered By: Payam Reyna on 12-30-2022 Albumin/Globulin [Mass ratio] 0.7 {ratio} 0.9-2.4 [facility] Serum or plasma calcium yonatan urement (mass/volume)Ordered By: Payam Reyna on 12-30-2022 Calcium [Mass/Vol] 9.1 mg/dL 8.5-10.1 [facility] Serum or plasma creatinine m easurement (mass/volume)Ordered By: Paaym Reyna on 12-30-2022 Creatinine [Mass/Vol] 0.61 mg/dL 0.55-1.02 [facility] Comment on above: The validity of the calculated GFR & GFRAA in patients over 70 years has not been determined. Clinical correlation is essential. Serum or plasma urea nitroge n measurement (mass/volume)Ordered By: Payam Reyna on 12-30-2022 Urea nitrogen [Mass/Vol] 13 mg/dL 7-18 [facility] Thin prep Papanicolaou smear with manual screeningOrdered By: Payam Reyna on 12-30-2022 Thin prep Papanicolaou smear with manual screening 25 U/L 15-37 [facility] Thin prep Papanicolaou smear with manual screening 5 5-15 [facility] Absolute lymphocyte countOrd ered By: Payam Reyna on 12-02-2022 Lymphocytes Auto (Unsp spec) [#/Vol] 1.55 10*3/uL 0.83-4.51 [facility] Basophil percentageOrdered B y: Payam Reyna on 12-02-2022 Basophils/100 WBC (Bld) 0.4 % 0-1 [facility] Bilirubin [Mass/Vol] 0.60 mg/dL 0.20-1.00 [facility] Comment on above: For patients on eltr ombopag therapy, use of [facility] TBIL is not recommended. Chloride [Moles/Vol] 109 mmol/L 98-107 [facility] Eosinophils/100 WBC (Bld) 2.3 % 0-5 [facility] Glucose [Mass/Vol] 82 mg/dL 74-106 [facility] Neutrophils (Bld) [#/Vol] 3.0 10*3/uL 2.0-7.7 [facility] Neutrophils/100 WBC (Bld) 56.8 % 47-70 [facility] Potassium [Moles/Vol] 4.5 mmol/L 3.5-5.1 [facility] Protein [Mass/Vol] 7.0 g/dL 6.4-8.2 [facility] Sodium [Moles/Vol] 140 mmol/L 136-145 [facility] WBC (Bld) [#/Vol] 5.3 10*3/uL 4.4-11.0 [facility] Blood erythrocytes count (nu mber/volume)Ordered By: Payam Reyna on 12-02-2022 RBC (Bld) [#/Vol] 3.54 10*6/uL 4.2-5.4 [facility] Blood hemoglobin measurement (mass/volume)Ordered By: Payam Reyna on 12-02-2022 Hemoglobin (Bld) [Mass/Vol] 12.2 g/dL 12.0-15.0 [facility] Blood lymphocytes/100 leukoc ytesOrdered By: Payam Reyna on 12-02-2022 Lymphocytes/100 WBC (Bld) 29.3 % 19-41 [facility] Blood monocytes/100 leukocyt esOrdered By: [facility] on 12-02-2022 Monocytes/100 WBC (Bld) 10.8 % 0-10 [facility] Blood platelet mean volumeOr dered By: Payam Reyna on 12-02-2022 Platelet mean volume (Bld) [Entitic vol] 10.1 fL 6.2-12.0 [facility] Determination of erythrocyte mean corpuscular volume (MCV)Ordered By: Payam Reyna on 12-02-2022 MCV (RBC) [Entitic vol] 104.8 fL 81-99 [facility] Hematocrit Auto (Bld) [Volum e fraction]Ordered By: Jasroyaltongarfield Reyna on 12-02-2022 Hematocrit (Bld) [Volume fraction] 37.1 % 37-47 [facility] Laboratory - Chemistry and C hemistry - challengeOrdered By: [facility] Herronalyssa on 12-02-2022 ALP [Catalytic activity/Vol] 90 U/L 45-117 [facility] ALT [Catalytic activity/Vol] 30 U/L 13-56 [facility] CO2 [Moles/Vol] 26.0 mmol/L 21.0-32.0 [facility] Globulin (S) [Mass/Vol] 4.0 g/dL 2.2-4.2 [facility] Urea nitrogen/Creatinine [Mass ratio] 25.4 mg/mg 10-20 [facility] Laboratory - Hematology and Cell countsOrdered By: merylroyaltongarfield Reyna on 12-02-2022 Erythrocyte distribution width (RBC) [Entitic vol] 51.2 fL 35.1-43.9 [facility] Erythrocyte distribution width (RBC) [Ratio] 13.4 % 11.6-14.6 [facility] Immature granulocytes/100 WBC (Bld) 0.400 % 0.0-0.9 [facility] Comment on above: IG% - Immature Granu locytes (promyelocytes, myelocytes and metamyelocytes) > 1% indicates that a LEFT SHIFT is Present. MCH (RBC) [Entitic mass] 34.5 pg 27.0-32.0 [facility] Nucleated RBC/100 WBC (Bld) [Ratio] 0 % 0-5 [facility] MCHC Auto (RBC) [Mass/Vol]Or dered By: Payam Reyna on 12-02-2022 MCHC (RBC) [Mass/Vol] 32.9 g/dL 32-36 [facility] No Panel InformationOrdered By: Payam Reyna on 12-02-2022 Estimated GFR (MDRD) Amer 115 mL/min >60 [facility] Comment on above: GFR Calc Estimated GFR (MDRD) Non-Af Amer 95 mL/min >60 [facility] Comment on above: Non- GFR Calc Platelets bldOrdered By: Fredy Reyna on 12-02-2022 Platelets (Bld) [#/Vol] 117 10*3/uL 150-450 [facility] Serum or plasma albumin yonatan urement (mass/volume)Ordered By: Payam Reyna on 12-02-2022 Albumin [Mass/Vol] 3.0 g/dL 3.2-5.0 [facility] Serum or plasma albumin/glob ulin mass ratioOrdered By: Payam Reyna on 12-02-2022 Albumin/Globulin [Mass ratio] 0.8 {ratio} 0.9-2.4 [facility] Serum or plasma calcium yonatan urement (mass/volume)Ordered By: Payam Reyna on 12-02-2022 Calcium [Mass/Vol] 8.9 mg/dL 8.5-10.1 [facility] Serum or plasma creatinine m easurement (mass/volume)Ordered By: Payam Reyna on 12-02-2022 Creatinine [Mass/Vol] 0.63 mg/dL 0.55-1.02 [facility] Comment on above: The validity of the calculated GFR & GFRAA in patients over 70 years has not been determined. Clinical correlation is essential. Serum or plasma urea nitroge n measurement (mass/volume)Ordered By: Payam Reyna on 12-02-2022 Urea nitrogen [Mass/Vol] 16 mg/dL 7-18 [facility] Thin prep Papanicolaou smear with manual screeningOrdered By: Payam Reyna on 12-02-2022 Thin prep Papanicolaou smear with manual screening 34 U/L 15-37 [facility] Thin prep Papanicolaou smear with manual screening 5 5-15 [facility] XR WRIST GENERAL 3V PA/LAT/O BL RIGHTon 11-25-2022 [facility] Absolute lymphocyte countOrd ered By: Payam Reyna on 11-04-2022 Lymphocytes Auto (Unsp spec) [#/Vol] 1.45 10*3/uL 0.83-4.51 [facility] Basophil percentageOrdered B y: Payam Reyna on 11-04-2022 Basophils/100 WBC (Bld) 0.7 % 0-1 [facility] Bilirubin [Mass/Vol] 0.60 mg/dL 0.20-1.00 [facility] Comment on above: For patients on eltr ombopag therapy, use of [facility] TBIL is not recommended. Chloride [Moles/Vol] 111 mmol/L 98-107 [facility] Eosinophils/100 WBC (Bld) 2.4 % 0-5 [facility] Glucose [Mass/Vol] 84 mg/dL 74-106 [facility] Neutrophils (Bld) [#/Vol] 2.4 10*3/uL 2.0-7.7 [facility] Neutrophils/100 WBC (Bld) 52.9 % 47-70 [facility] Potassium [Moles/Vol] 4.0 mmol/L 3.5-5.1 [facility] Protein [Mass/Vol] 7.2 g/dL 6.4-8.2 [facility] Sodium [Moles/Vol] 141 mmol/L 136-145 [facility] WBC (Bld) [#/Vol] 4.6 10*3/uL 4.4-11.0 [facility] Blood erythrocytes count (nu mber/volume)Ordered By: Payam Reyna on 11-04-2022 RBC (Bld) [#/Vol] 3.31 10*6/uL 4.2-5.4 [facility] Blood hemoglobin measurement (mass/volume)Ordered By: Payam Reyna on 11-04-2022 Hemoglobin (Bld) [Mass/Vol] 11.5 g/dL 12.0-15.0 [facility] Blood lymphocytes/100 leukoc ytesOrdered By: Payam Reyna on 11-04-2022 Lymphocytes/100 WBC (Bld) 31.9 % 19-41 [facility] Blood monocytes/100 leukocyt esOrdered By: Payam Reyna on 11-04-2022 Monocytes/100 WBC (Bld) 11.9 % 0-10 [facility] Blood platelet mean volumeOr dered By: Payam Reyna on 11-04-2022 Platelet mean volume (Bld) [Entitic vol] 10.0 fL 6.2-12.0 [facility] Determination of erythrocyte mean corpuscular volume (MCV)Ordered By: Payam Reyna on 11-04-2022 MCV (RBC) [Entitic vol] 107.6 fL 81-99 [facility] Hematocrit Auto (Bld) [Volum e fraction]Ordered By: Payam Reyna on 11-04-2022 Hematocrit (Bld) [Volume fraction] 35.6 % 37-47 [facility] Laboratory - Chemistry and C hemistry - challengeOrdered By: Payam Reyna on 11-04-2022 ALP [Catalytic activity/Vol] 88 U/L 45-117 [facility] ALT [Catalytic activity/Vol] 22 U/L 13-56 [facility] CO2 [Moles/Vol] 26.0 mmol/L 21.0-32.0 [facility] Globulin (S) [Mass/Vol] 4.3 g/dL 2.2-4.2 [facility] Urea nitrogen/Creatinine [Mass ratio] 21.2 mg/mg 10-20 [facility] Laboratory - Hematology and Cell countsOrdered By: Payam Reyna on 11-04-2022 Erythrocyte distribution width (RBC) [Entitic vol] 52.2 fL 35.1-43.9 [facility] Erythrocyte distribution width (RBC) [Ratio] 13.2 % 11.6-14.6 [facility] Immature granulocytes/100 WBC (Bld) 0.200 % 0.0-0.9 [facility] Comment on above: IG% - Immature Granu locytes (promyelocytes, myelocytes and metamyelocytes) > 1% indicates that a LEFT SHIFT is Present. MCH (RBC) [Entitic mass] 34.7 pg 27.0-32.0 [facility] Nucleated RBC/100 WBC (Bld) [Ratio] 0 % 0-5 [facility] MCHC Auto (RBC) [Mass/Vol]Or dered By: Payam Reyna on 11-04-2022 MCHC (RBC) [Mass/Vol] 32.3 g/dL 32-36 [facility] No Panel InformationOrdered By: Payam Reyna on 11-04-2022 Estimated GFR (MDRD) Amer 119 mL/min >60 [facility] Comment on above: GFR Calc Estimated GFR (MDRD) Non-Af Amer 98 mL/min >60 [facility] Comment on above: Non- GFR Calc Thyroid Stimulating Hormone (TSH) 0.93 uIU/mL 0.358-3.74 [facility] Platelets bldOrdered By: Fredy Reyna on 11-04-2022 Platelets (Bld) [#/Vol] 114 10*3/uL 150-450 [facility] Serum or plasma albumin yonatan urement (mass/volume)Ordered By: Payam Reyna on 11-04-2022 Albumin [Mass/Vol] 2.9 g/dL 3.2-5.0 [facility] Serum or plasma albumin/glob ulin mass ratioOrdered By: Payam Reyna on 11-04-2022 Albumin/Globulin [Mass ratio] 0.7 {ratio} 0.9-2.4 [facility] Serum or plasma calcium yonatan urement (mass/volume)Ordered By: Payam Reyna on 11-04-2022 Calcium [Mass/Vol] 9.4 mg/dL 8.5-10.1 [facility] Serum or plasma creatinine m easurement (mass/volume)Ordered By: Payam Reyna on 11-04-2022 Creatinine [Mass/Vol] 0.61 mg/dL 0.55-1.02 [facility] Comment on above: The validity of the calculated GFR & GFRAA in patients over 70 years has not been determined. Clinical correlation is essential. Serum or plasma urea nitroge n measurement (mass/volume)Ordered By: Payam Reyna on 11-04-2022 Urea nitrogen [Mass/Vol] 13 mg/dL 7-18 [facility] Thin prep Papanicolaou smear with manual screeningOrdered By: arline Reyna on 11-04-2022 Thin prep Papanicolaou smear with manual screening 29 U/L 15-37 [facility] Thin prep Papanicolaou smear with manual screening 4 5-15 [facility] Absolute lymphocyte countOrd ered By: Payam Reyna on 09-30-2022 Lymphocytes Auto (Unsp spec) [#/Vol] 1.40 10*3/uL 0.83-4.51 [facility] Basophil percentageOrdered B y: Angelitomerylmichaelgarfield Reyna on 09-30-2022 Basophils/100 WBC (Bld) 0.5 % 0-1 [facility] Bilirubin [Mass/Vol] 0.80 mg/dL 0.20-1.00 [facility] Comment on above: For patients on eltr ombopag therapy, use of [facility] TBIL is not recommended. Chloride [Moles/Vol] 113 mmol/L 98-107 [facility] Eosinophils/100 WBC (Bld) 2.2 % 0-5 [facility] Glucose [Mass/Vol] 80 mg/dL 74-106 [facility] Neutrophils (Bld) [#/Vol] 2.2 10*3/uL 2.0-7.7 [facility] Neutrophils/100 WBC (Bld) 52.0 % 47-70 [facility] Potassium [Moles/Vol] 3.8 mmol/L 3.5-5.1 [facility] Protein [Mass/Vol] 6.6 g/dL 6.4-8.2 [facility] Sodium [Moles/Vol] 142 mmol/L 136-145 [facility] WBC (Bld) [#/Vol] 4.1 10*3/uL 4.4-11.0 [facility] Blood erythrocytes count (nu mber/volume)Ordered By: Payam Reyna on 09-30-2022 RBC (Bld) [#/Vol] 2.92 10*6/uL 4.2-5.4 [facility] Blood hemoglobin measurement (mass/volume)Ordered By: Payam Reyna on 09-30-2022 Hemoglobin (Bld) [Mass/Vol] 10.7 g/dL 12.0-15.0 [facility] Blood lymphocytes/100 leukoc ytesOrdered By: [facility] on 09-30-2022 Lymphocytes/100 WBC (Bld) 33.9 % 19-41 [facility] Blood monocytes/100 leukocyt esOrdered By: [facility] on 09-30-2022 Monocytes/100 WBC (Bld) 11.4 % 0-10 [facility] Blood platelet mean volumeOr dered By: Payam Reyna on 09-30-2022 Platelet mean volume (Bld) [Entitic vol] 9.8 fL 6.2-12.0 [facility] Determination of erythrocyte mean corpuscular volume (MCV)Ordered By: Payam Reyna on 09-30-2022 MCV (RBC) [Entitic vol] 108.2 fL 81-99 [facility] Hematocrit Auto (Bld) [Volum e fraction]Ordered By: arline Reyna on 09-30-2022 Hematocrit (Bld) [Volume fraction] 31.6 % 37-47 [facility] Laboratory - Chemistry and C hemistry - challengeOrdered By: Payam Reyna on 09-30-2022 ALP [Catalytic activity/Vol] 77 U/L 45-117 [facility] ALT [Catalytic activity/Vol] 20 U/L 13-56 [facility] CO2 [Moles/Vol] 24.0 mmol/L 21.0-32.0 [facility] Globulin (S) [Mass/Vol] 3.9 g/dL 2.2-4.2 [facility] Urea nitrogen/Creatinine [Mass ratio] 20.1 mg/mg 10-20 [facility] Laboratory - Hematology and Cell countsOrdered By: Payam Reyna on 09-30-2022 Erythrocyte distribution width (RBC) [Entitic vol] 56.6 fL 35.1-43.9 [facility] Erythrocyte distribution width (RBC) [Ratio] 14.3 % 11.6-14.6 [facility] Immature granulocytes/100 WBC (Bld) 0.000 % 0.0-0.9 [facility] Comment on above: IG% - Immature Granu locytes (promyelocytes, myelocytes and metamyelocytes) > 1% indicates that a LEFT SHIFT is Present. MCH (RBC) [Entitic mass] 36.6 pg 27.0-32.0 [facility] Nucleated RBC/100 WBC (Bld) [Ratio] 0 % 0-5 [facility] MCHC Auto (RBC) [Mass/Vol]Or dered By: Payam Reyna on 09-30-2022 MCHC (RBC) [Mass/Vol] 33.9 g/dL 32-36 [facility] No Panel InformationOrdered By: Payam Reyna on 09-30-2022 Estimated GFR (MDRD) Amer 112 mL/min >60 [facility] Comment on above: GFR Calc Estimated GFR (MDRD) Non-Af Amer 92 mL/min >60 [facility] Comment on above: Non- GFR Calc Platelets bldOrdered By: Fredy Reyna on 09-30-2022 Platelets (Bld) [#/Vol] 104 10*3/uL 150-450 [facility] Serum or plasma albumin yonatan urement (mass/volume)Ordered By: Payam Reyna on 09-30-2022 Albumin [Mass/Vol] 2.7 g/dL 3.2-5.0 [facility] Serum or plasma albumin/glob ulin mass ratioOrdered By: Payam Renya on 09-30-2022 Albumin/Globulin [Mass ratio] 0.7 {ratio} 0.9-2.4 [facility] Serum or plasma calcium yonatan urement (mass/volume)Ordered By: Payam Reyna on 09-30-2022 Calcium [Mass/Vol] 8.8 mg/dL 8.5-10.1 [facility] Serum or plasma creatinine m easurement (mass/volume)Ordered By: Payam Reyna on 09-30-2022 Creatinine [Mass/Vol] 0.65 mg/dL 0.55-1.02 [facility] Comment on above: The validity of the calculated GFR & GFRAA in patients over 70 years has not been determined. Clinical correlation is essential. Serum or plasma urea nitroge n measurement (mass/volume)Ordered By: Payam Reyna on 09-30-2022 Urea nitrogen [Mass/Vol] 13 mg/dL 7-18 [facility] Thin prep Papanicolaou smear with manual screeningOrdered By: Payam Reyna on 09-30-2022 Thin prep Papanicolaou smear with manual screening 27 U/L 15-37 [facility] Thin prep Papanicolaou smear with manual screening 5 5-15 [facility] Absolute lymphocyte countOrd ered By: Payam Reyna on 09-19-2022 Lymphocytes Auto (Unsp spec) [#/Vol] 1.39 10*3/uL 0.83-4.51 [facility] Basophil percentageOrdered B y: Payam Reyna on 09-19-2022 Basophils/100 WBC (Bld) 0.5 % 0-1 [facility] Eosinophils/100 WBC (Bld) 2.0 % 0-5 [facility] Neutrophils (Bld) [#/Vol] 2.1 10*3/uL 2.0-7.7 [facility] Neutrophils/100 WBC (Bld) 51.6 % 47-70 [facility] WBC (Bld) [#/Vol] 4.1 10*3/uL 4.4-11.0 [facility] Blood erythrocytes count (nu mber/volume)Ordered By: Payam Reyna on 09-19-2022 RBC (Bld) [#/Vol] 2.84 10*6/uL 4.2-5.4 [facility] Blood hemoglobin measurement (mass/volume)Ordered By: Payam Reyna on 09-19-2022 Hemoglobin (Bld) [Mass/Vol] 10.2 g/dL 12.0-15.0 [facility] Blood lymphocytes/100 leukoc ytesOrdered By: Payam Reyna on 09-19-2022 Lymphocytes/100 WBC (Bld) 34.3 % 19-41 [facility] Blood monocytes/100 leukocyt esOrdered By: Payam Reyna on 09-19-2022 Monocytes/100 WBC (Bld) 11.4 % 0-10 [facility] Blood platelet mean volumeOr dered By: Payam Reyna on 09-19-2022 Platelet mean volume (Bld) [Entitic vol] 9.9 fL 6.2-12.0 [facility] Determination of erythrocyte mean corpuscular volume (MCV)Ordered By: Payam Reyna on 09-19-2022 MCV (RBC) [Entitic vol] 106.3 fL 81-99 [facility] Hematocrit Auto (Bld) [Volum e fraction]Ordered By: Payam Reyna on 09-19-2022 Hematocrit (Bld) [Volume fraction] 30.2 % 37-47 [facility] Laboratory - Hematology and Cell countsOrdered By: Payam Reyna on 09-19-2022 Erythrocyte distribution width (RBC) [Entitic vol] 56.1 fL 35.1-43.9 [facility] Erythrocyte distribution width (RBC) [Ratio] 14.3 % 11.6-14.6 [facility] Immature granulocytes/100 WBC (Bld) 0.200 % 0.0-0.9 [facility] Comment on above: IG% - Immature Granu locytes (promyelocytes, myelocytes and metamyelocytes) > 1% indicates that a LEFT SHIFT is Present. MCH (RBC) [Entitic mass] 35.9 pg 27.0-32.0 [facility] Nucleated RBC/100 WBC (Bld) [Ratio] 0 % 0-5 [facility] MCHC Auto (RBC) [Mass/Vol]Or dered By: Payam Reyna on 09-19-2022 MCHC (RBC) [Mass/Vol] 33.8 g/dL 32-36 [facility] Platelets bldOrdered By: Fredy Reyna on 09-19-2022 Platelets (Bld) [#/Vol] 106 10*3/uL 150-450 [facility] Absolute lymphocyte countOrd ered By: Jasmichaelgarfield Reyna on 09-02-2022 Lymphocytes Auto (Unsp spec) [#/Vol] 1.47 10*3/uL 0.83-4.51 [facility] Basophil percentageOrdered B y: Payam Reyna on 09-02-2022 Basophils/100 WBC (Bld) 0.8 % 0-1 [facility] Bilirubin [Mass/Vol] 0.90 mg/dL 0.20-1.00 [facility] Comment on above: For patients on eltr ombopag therapy, use of [facility] TBIL is not recommended. Chloride [Moles/Vol] 110 mmol/L 98-107 [facility] Eosinophils/100 WBC (Bld) 1.6 % 0-5 [facility] Glucose [Mass/Vol] 83 mg/dL 74-106 [facility] Neutrophils (Bld) [#/Vol] 3.6 10*3/uL 2.0-7.7 [facility] Neutrophils/100 WBC (Bld) 60.1 % 47-70 [facility] Potassium [Moles/Vol] 4.0 mmol/L 3.5-5.1 [facility] Protein [Mass/Vol] 7.5 g/dL 6.4-8.2 [facility] Sodium [Moles/Vol] 141 mmol/L 136-145 [facility] WBC (Bld) [#/Vol] 6.1 10*3/uL 4.4-11.0 [facility] Blood erythrocytes count (nu mber/volume)Ordered By: Payam Reyna on 09-02-2022 RBC (Bld) [#/Vol] 3.50 10*6/uL 4.2-5.4 [facility] Blood hemoglobin measurement (mass/volume)Ordered By: Payam Reyna on 09-02-2022 Hemoglobin (Bld) [Mass/Vol] 12.2 g/dL 12.0-15.0 [facility] Blood lymphocytes/100 leukoc ytesOrdered By: Payam Reyna on 09-02-2022 Lymphocytes/100 WBC (Bld) 24.2 % 19-41 [facility] Blood monocytes/100 leukocyt esOrdered By: [facility] Gopalalyssa on 09-02-2022 Monocytes/100 WBC (Bld) 13.0 % 0-10 [facility] Blood platelet mean volumeOr dered By: [facility] Gopalalyssa on 09-02-2022 Platelet mean volume (Bld) [Entitic vol] 9.7 fL 6.2-12.0 [facility] Determination of erythrocyte mean corpuscular volume (MCV)Ordered By: [facility] Gopalalyssa on 09-02-2022 MCV (RBC) [Entitic vol] 105.7 fL 81-99 [facility] Hematocrit Auto (Bld) [Volum e fraction]Ordered By: [facility] Gopalalyssa on 09-02-2022 Hematocrit (Bld) [Volume fraction] 37.0 % 37-47 [facility] Laboratory - Chemistry and C hemistry - challengeOrdered By: [facility] Gopalalyssa on 09-02-2022 ALP [Catalytic activity/Vol] 93 U/L 45-117 [facility] ALT [Catalytic activity/Vol] 24 U/L 13-56 [facility] CO2 [Moles/Vol] 25.0 mmol/L 21.0-32.0 [facility] Globulin (S) [Mass/Vol] 4.5 g/dL 2.2-4.2 [facility] Urea nitrogen/Creatinine [Mass ratio] 17.3 mg/mg 10-20 [facility] Laboratory - Hematology and Cell countsOrdered By: [facility] Gopalalyssa on 09-02-2022 Erythrocyte distribution width (RBC) [Entitic vol] 53.6 fL 35.1-43.9 [facility] Erythrocyte distribution width (RBC) [Ratio] 13.7 % 11.6-14.6 [facility] Immature granulocytes/100 WBC (Bld) 0.300 % 0.0-0.9 [facility] Comment on above: IG% - Immature Granu locytes (promyelocytes, myelocytes and metamyelocytes) > 1% indicates that a LEFT SHIFT is Present. MCH (RBC) [Entitic mass] 34.9 pg 27.0-32.0 [facility] Nucleated RBC/100 [facility] (Bld) [Ratio] 0 % [facility] [Mass/Vol]Or dered By: Payam Reyna on 09-02-2022 MCHC (RBC) [Mass/Vol] 33.0 g/dL 32-36 [facility] No Panel InformationOrdered By: Payam Reyna on 09-02-2022 Estimated GFR (MDRD) Amer 103 mL/min >60 [facility] Comment on above: GFR Calc Estimated GFR (MDRD) Non-Af Amer 85 mL/min >60 [facility] Comment on above: Non- GFR Calc Platelets bldOrdered By: Fredy Reyna on 09-02-2022 Platelets (Bld) [#/Vol] 104 10*3/uL 150-450 [facility] Serum or plasma albumin yonatan urement (mass/volume)Ordered By: Payam Reyna on 09-02-2022 Albumin [Mass/Vol] 3.0 g/dL 3.2-5.0 [facility] Serum or plasma albumin/glob ulin mass ratioOrdered By: Payam Reyna on 09-02-2022 Albumin/Globulin [Mass ratio] 0.7 {ratio} 0.9-2.4 [facility] Serum or plasma calcium yonatan urement (mass/volume)Ordered By: Payam Reyna on 09-02-2022 Calcium [Mass/Vol] 9.5 mg/dL 8.5-10.1 [facility] Serum or plasma creatinine m easurement (mass/volume)Ordered By: Payam Reyna on 09-02-2022 Creatinine [Mass/Vol] 0.69 mg/dL 0.55-1.02 [facility] Comment on above: The validity of the calculated GFR & GFRAA in patients over 70 years has not been determined. Clinical correlation is essential. Serum or plasma urea nitroge n measurement (mass/volume)Ordered By: Payam Reyna on 09-02-2022 Urea nitrogen [Mass/Vol] 12 mg/dL 7-18 [facility] Thin prep Papanicolaou smear with manual screeningOrdered By: Payam Reyna on 09-02-2022 Thin prep Papanicolaou smear with manual screening 27 U/L 15-37 [facility] Thin prep Papanicolaou smear with manual screening 6 5-15 [facility] Absolute lymphocyte countOrd ered By: Payam Reyna on 07-29-2022 Lymphocytes Auto (Unsp spec) [#/Vol] 1.03 10*3/uL 0.83-4.51 [facility] Basophil percentageOrdered B y: Angelitomerylmichaelgarfield Reyna on 07-29-2022 Basophils/100 WBC (Bld) 0.6 % 0-1 [facility] Bilirubin [Mass/Vol] 0.80 mg/dL 0.20-1.00 [facility] Comment on above: For patients on eltr ombopag therapy, use of [facility] TBIL is not recommended. Chloride [Moles/Vol] 110 mmol/L 98-107 [facility] Eosinophils/100 WBC (Bld) 1.8 % 0-5 [facility] Glucose [Mass/Vol] 75 mg/dL 74-106 [facility] Neutrophils (Bld) [#/Vol] 3.1 10*3/uL 2.0-7.7 [facility] Neutrophils/100 WBC (Bld) 62.1 % 47-70 [facility] Potassium [Moles/Vol] 4.1 mmol/L 3.5-5.1 [facility] Protein [Mass/Vol] 6.9 g/dL 6.4-8.2 [facility] Sodium [Moles/Vol] 141 mmol/L 136-145 [facility] WBC (Bld) [#/Vol] 5.0 10*3/uL 4.4-11.0 [facility] Blood erythrocytes count (nu mber/volume)Ordered By: Payam Reyna on 07-29-2022 RBC (Bld) [#/Vol] 3.25 10*6/uL 4.2-5.4 [facility] Blood hemoglobin measurement (mass/volume)Ordered By: Payam Reyna on 07-29-2022 Hemoglobin (Bld) [Mass/Vol] 11.6 g/dL 12.0-15.0 [facility] Blood lymphocytes/100 leukoc ytesOrdered By: Payam Reyna on 07-29-2022 Lymphocytes/100 WBC (Bld) 20.8 % 19-41 [facility] Blood monocytes/100 leukocyt esOrdered By: [facility] on 07-29-2022 Monocytes/100 WBC (Bld) 14.5 % 0-10 [facility] Blood platelet mean volumeOr dered By: Payam Reyna on 07-29-2022 Platelet mean volume (Bld) [Entitic vol] 9.7 fL 6.2-12.0 [facility] Determination of erythrocyte mean corpuscular volume (MCV)Ordered By: Payam Reyna on 07-29-2022 MCV (RBC) [Entitic vol] 106.5 fL 81-99 [facility] Hematocrit Auto (Bld) [Volum e fraction]Ordered By: Payam Reyna on 07-29-2022 Hematocrit (Bld) [Volume fraction] 34.6 % 37-47 [facility] Laboratory - Chemistry and C hemistry - challengeOrdered By: merylroyaltongarfield Reyna on 07-29-2022 ALP [Catalytic activity/Vol] 91 U/L 45-117 [facility] ALT [Catalytic activity/Vol] 23 U/L 13-56 [facility] CO2 [Moles/Vol] 24.0 mmol/L 21.0-32.0 [facility] Globulin (S) [Mass/Vol] 4.1 g/dL 2.2-4.2 [facility] Urea nitrogen/Creatinine [Mass ratio] 23.1 mg/mg 10-20 [facility] Laboratory - Hematology and Cell countsOrdered By: arline Reyna on 07-29-2022 Erythrocyte distribution width (RBC) [Entitic vol] 53.7 fL 35.1-43.9 [facility] Erythrocyte distribution width (RBC) [Ratio] 13.7 % 11.6-14.6 [facility] Immature granulocytes/100 WBC (Bld) 0.200 % 0.0-0.9 [facility] Comment on above: IG% - Immature Granu locytes (promyelocytes, myelocytes and metamyelocytes) > 1% indicates that a LEFT SHIFT is Present. MCH (RBC) [Entitic mass] 35.7 pg 27.0-32.0 [facility] Nucleated RBC/100 WBC (Bld) [Ratio] 0 % 0-5 [facility] MCHC Auto (RBC) [Mass/Vol]Or dered By: Payam Reyna on 07-29-2022 MCHC (RBC) [Mass/Vol] 33.5 g/dL 32-36 [facility] No Panel InformationOrdered By: Payam Reyna on 07-29-2022 Estimated GFR (MDRD) Amer 131 mL/min >60 [facility] Comment on above: GFR Calc Estimated GFR (MDRD) Non-Af Amer 109 mL/min >60 [facility] Comment on above: Non- GFR Calc Platelets bldOrdered By: Fredy Reyna on 07-29-2022 Platelets (Bld) [#/Vol] 112 10*3/uL 150-450 [facility] Serum or plasma albumin yonatan urement (mass/volume)Ordered By: Payam Reyna on 07-29-2022 Albumin [Mass/Vol] 2.8 g/dL 3.2-5.0 [facility] Serum or plasma albumin/glob ulin mass ratioOrdered By: Payam Reyna on 07-29-2022 Albumin/Globulin [Mass ratio] 0.7 {ratio} 0.9-2.4 [facility] Serum or plasma calcium yonatan urement (mass/volume)Ordered By: Payam Reyna on 07-29-2022 Calcium [Mass/Vol] 9.4 mg/dL 8.5-10.1 [facility] Serum or plasma creatinine m easurement (mass/volume)Ordered By: Payam Reyna on 07-29-2022 Creatinine [Mass/Vol] 0.56 mg/dL 0.55-1.02 [facility] Comment on above: The validity of the calculated GFR & GFRAA in patients over 70 years has not been determined. Clinical correlation is essential. Serum or plasma urea nitroge n measurement (mass/volume)Ordered By: Payam Reyna on 07-29-2022 Urea nitrogen [Mass/Vol] 13 mg/dL 7-18 [facility] Thin prep Papanicolaou smear with manual screeningOrdered By: Angelitomerylshine Gopalrejialyssa on 07-29-2022 Thin prep Papanicolaou smear with manual screening 29 U/L 15-37 [facility] Thin prep Papanicolaou smear with manual screening 7 5-15 [facility] Absolute lymphocyte countOrd ered By: Jasmichaelgarfield Reyna on 07-01-2022 Lymphocytes Auto (Unsp spec) [#/Vol] 1.43 10*3/uL 0.83-4.51 [facility] Basophil percentageOrdered B y: Jasshine Maribell on 07-01-2022 Basophils/100 WBC (Bld) 1.0 % 0-1 [facility] Bilirubin [Mass/Vol] 0.60 mg/dL 0.20-1.00 [facility] Comment on above: For patients on eltr ombopag therapy, use of [facility] TBIL is not recommended. Chloride [Moles/Vol] 109 mmol/L 98-107 [facility] Eosinophils/100 WBC (Bld) 2.0 % 0-5 [facility] Glucose [Mass/Vol] 80 mg/dL 74-106 [facility] Neutrophils (Bld) [#/Vol] 2.0 10*3/uL 2.0-7.7 [facility] Neutrophils/100 WBC (Bld) 49.1 % 47-70 [facility] Potassium [Moles/Vol] 4.1 mmol/L 3.5-5.1 [facility] Protein [Mass/Vol] 6.3 g/dL 6.4-8.2 [facility] Sodium [Moles/Vol] 140 mmol/L 136-145 [facility] WBC (Bld) [#/Vol] 4.1 10*3/uL 4.4-11.0 [facility] Blood erythrocytes count (nu mber/volume)Ordered By: Payam Reyna on 07-01-2022 RBC (Bld) [#/Vol] 3.07 10*6/uL 4.2-5.4 [facility] Blood hemoglobin measurement (mass/volume)Ordered By: Payam Reyna on 07-01-2022 Hemoglobin (Bld) [Mass/Vol] 10.9 g/dL 12.0-15.0 [facility] Blood lymphocytes/100 leukoc ytesOrdered By: Payam Reyna on 07-01-2022 Lymphocytes/100 WBC (Bld) 35.3 % 19-41 [facility] Blood monocytes/100 leukocyt esOrdered By: [facility] on 07-01-2022 Monocytes/100 WBC (Bld) 12.1 % 0-10 [facility] Blood platelet mean volumeOr dered By: [facility] on 07-01-2022 Platelet mean volume (Bld) [Entitic vol] 10.1 fL 6.2-12.0 [facility] Determination of erythrocyte mean corpuscular volume (MCV)Ordered By: Payam Reyna on 07-01-2022 MCV (RBC) [Entitic vol] 103.9 fL 81-99 [facility] Hematocrit Auto (Bld) [Volum e fraction]Ordered By: [facility] on 07-01-2022 Hematocrit (Bld) [Volume fraction] 31.9 % 37-47 [facility] Laboratory - Chemistry and C hemistry - challengeOrdered By: Payam Reyna on 07-01-2022 ALP [Catalytic activity/Vol] 93 U/L 45-117 [facility] ALT [Catalytic activity/Vol] 23 U/L 13-56 [facility] CO2 [Moles/Vol] 26.0 mmol/L 21.0-32.0 [facility] Globulin (S) [Mass/Vol] 3.5 g/dL 2.2-4.2 [facility] Urea nitrogen/Creatinine [Mass ratio] 16.4 mg/mg 10-20 [facility] Laboratory - Hematology and Cell countsOrdered By: arline Reyna on 07-01-2022 Erythrocyte distribution width (RBC) [Entitic vol] 53.4 fL 35.1-43.9 [facility] Erythrocyte distribution width (RBC) [Ratio] 13.9 % 11.6-14.6 [facility] Immature granulocytes/100 WBC (Bld) 0.500 % 0.0-0.9 [facility] Comment on above: IG% - Immature Granu locytes (promyelocytes, myelocytes and metamyelocytes) > 1% indicates that a LEFT SHIFT is Present. MCH (RBC) [Entitic mass] 35.5 pg 27.0-32.0 [facility] Nucleated RBC/100 WBC (Bld) [Ratio] 0 % 0-5 [facility] MCHC Auto (RBC) [Mass/Vol]Or dered By: Payam Reyna on 07-01-2022 MCHC (RBC) [Mass/Vol] 34.2 g/dL 32-36 [facility] No Panel InformationOrdered By: Payam Reyna on 07-01-2022 Estimated GFR (MDRD) Amer 120 mL/min >60 [facility] Comment on above: GFR Calc Estimated GFR (MDRD) Non-Af Amer 99 mL/min >60 [facility] Comment on above: Non- GFR Calc Platelets bldOrdered By: Fredy Reyna on 07-01-2022 Platelets (Bld) [#/Vol] 104 10*3/uL 150-450 [facility] Serum or plasma albumin yonatan urement (mass/volume)Ordered By: Payam Reyna on 07-01-2022 Albumin [Mass/Vol] 2.8 g/dL 3.2-5.0 [facility] Serum or plasma albumin/glob ulin mass ratioOrdered By: Payam Reyna on 07-01-2022 Albumin/Globulin [Mass ratio] 0.8 {ratio} 0.9-2.4 [facility] Serum or plasma calcium yonatan urement (mass/volume)Ordered By: Payam Reyna on 07-01-2022 Calcium [Mass/Vol] 9.3 mg/dL 8.5-10.1 [facility] Serum or plasma creatinine m easurement (mass/volume)Ordered By: Payam Reyna on 07-01-2022 Creatinine [Mass/Vol] 0.61 mg/dL 0.55-1.02 [facility] Comment on above: The validity of the calculated GFR & GFRAA in patients over 70 years has not been determined. Clinical correlation is essential. Serum or plasma urea nitroge n measurement (mass/volume)Ordered By: Payam Reyna on 07-01-2022 Urea nitrogen [Mass/Vol] 10 mg/dL 7-18 [facility] Thin prep Papanicolaou smear with manual screeningOrdered By: Payam Reyna on 07-01-2022 Thin prep Papanicolaou smear with manual screening 28 U/L 15-37 [facility] Thin prep Papanicolaou smear with manual screening 5 5-15 [facility] XR RIBS 2V AP/OBL RIGHTon [facility] Absolute lymphocyte countOrd ered By: Payam Reyna on 06-03-2022 Lymphocytes Auto (Unsp spec) [#/Vol] 1.54 10*3/uL 0.83-4.51 [facility] Basophil percentageOrdered B y: Payam Reyna on 06-03-2022 Basophils/100 WBC (Bld) 0.5 % 0-1 [facility] Bilirubin [Mass/Vol] 0.60 mg/dL 0.20-1.00 [facility] Comment on above: For patients on eltr ombopag therapy, use of [facility] TBIL is not recommended. Chloride [Moles/Vol] 108 mmol/L 98-107 [facility] Eosinophils/100 WBC (Bld) 2.4 % 0-5 [facility] Glucose [Mass/Vol] 86 mg/dL 74-106 [facility] Neutrophils (Bld) [#/Vol] 3.2 10*3/uL 2.0-7.7 [facility] Neutrophils/100 WBC (Bld) 58.6 % 47-70 [facility] Potassium [Moles/Vol] 4.2 mmol/L 3.5-5.1 [facility] Protein [Mass/Vol] 7.2 g/dL 6.4-8.2 [facility] Sodium [Moles/Vol] 141 mmol/L 136-145 [facility] WBC (Bld) [#/Vol] 5.5 10*3/uL 4.4-11.0 [facility] Blood erythrocytes count (nu mber/volume)Ordered By: Payam Reyna on 06-03-2022 RBC (Bld) [#/Vol] 3.73 10*6/uL 4.2-5.4 [facility] Blood hemoglobin measurement (mass/volume)Ordered By: Payam Reyna on 06-03-2022 Hemoglobin (Bld) [Mass/Vol] 13.1 g/dL 12.0-15.0 [facility] Blood lymphocytes/100 leukoc ytesOrdered By: Payam Reyna on 06-03-2022 Lymphocytes/100 WBC (Bld) 27.8 % 19-41 [facility] Blood manual differential co mment interpretation (narrative result)Ordered By: Payam Reyna on 06-03-2022 Manual differential comment [place] (Bld) [Interp] SCANNED [facility] Blood monocytes/100 leukocyt esOrdered By: arline Reyna on 06-03-2022 Monocytes/100 WBC (Bld) 10.3 % 0-10 [facility] Blood platelet mean volumeOr dered By: Payam Reyna on 06-03-2022 Platelet mean volume (Bld) [Entitic vol] 9.9 fL 6.2-12.0 [facility] Determination of erythrocyte mean corpuscular volume (MCV)Ordered By: Payam Reyna on 06-03-2022 MCV (RBC) [Entitic vol] 102.7 fL 81-99 [facility] Hematocrit Auto (Bld) [Volum e fraction]Ordered By: Payam Reyna on 06-03-2022 Hematocrit (Bld) [Volume fraction] 38.3 % 37-47 [facility] Laboratory - Chemistry and C hemistry - challengeOrdered By: Payam Reyna on 06-03-2022 ALP [Catalytic activity/Vol] 98 U/L 45-117 [facility] ALT [Catalytic activity/Vol] 33 U/L 13-56 [facility] CO2 [Moles/Vol] 26.0 mmol/L 21.0-32.0 [facility] Globulin (S) [Mass/Vol] 4.2 g/dL 2.2-4.2 [facility] Urea nitrogen/Creatinine [Mass ratio] 28.5 mg/mg 10-20 [facility] Laboratory - Hematology and Cell countsOrdered By: Payam Reyna on 06-03-2022 Anisocytosis Ql (Bld) 1+ [facility] Erythrocyte distribution width (RBC) [Entitic vol] 68.7 fL 35.1-43.9 [facility] Erythrocyte distribution width (RBC) [Ratio] 18.0 % 11.6-14.6 [facility] Immature granulocytes/100 WBC (Bld) 0.400 % 0.0-0.9 [facility] Comment on above: IG% - Immature Granu locytes (promyelocytes, myelocytes and metamyelocytes) > 1% indicates that a LEFT SHIFT is Present. MCH (RBC) [Entitic mass] 35.1 pg 27.0-32.0 [facility] Nucleated RBC/100 WBC (Bld) [Ratio] 0 % 0-5 [facility] MCHC Auto (RBC) [Mass/Vol]Or dered By: Payam Reyna on 06-03-2022 MCHC (RBC) [Mass/Vol] 34.2 g/dL 32-36 [facility] No Panel InformationOrdered By: Payam Reyna on 06-03-2022 Estimated GFR (MDRD) Amer 123 mL/min >60 [facility] Comment on above: GFR Calc Estimated GFR (MDRD) Non-Af Amer 101 mL/min >60 [facility] Comment on above: Non- GFR Calc Platelets bldOrdered By: Fredy Reyna on 06-03-2022 Platelets (Bld) [#/Vol] 113 10*3/uL 150-450 [facility] Serum or plasma albumin yonatan urement (mass/volume)Ordered By: Payam Reyna on 06-03-2022 Albumin [Mass/Vol] 3.0 g/dL 3.2-5.0 [facility] Serum or plasma albumin/glob ulin mass ratioOrdered By: Payam Reyna on 06-03-2022 Albumin/Globulin [Mass ratio] 0.7 {ratio} 0.9-2.4 [facility] Serum or plasma calcium yonatan urement (mass/volume)Ordered By: Payam Reyna on 06-03-2022 Calcium [Mass/Vol] 9.5 mg/dL 8.5-10.1 [facility] Serum or plasma creatinine m easurement (mass/volume)Ordered By: Payam Reyna on 06-03-2022 Creatinine [Mass/Vol] 0.60 mg/dL 0.55-1.02 [facility] Comment on above: The validity of the calculated GFR & GFRAA in patients over 70 years has not been determined. Clinical correlation is essential. Serum or plasma urea nitroge n measurement (mass/volume)Ordered By: Payam Reyna on 06-03-2022 Urea nitrogen [Mass/Vol] 17 mg/dL 7-18 [facility] Thin prep Papanicolaou smear with manual screeningOrdered By: Payam Reyna on 06-03-2022 Thin prep Papanicolaou smear with manual screening 33 U/L 15-37 [facility] Thin prep Papanicolaou smear with manual screening 7 5-15 [facility] Absolute lymphocyte countOrd ered By: Alejo Salcido on 05-06-2022 Lymphocytes Auto (Unsp spec) [#/Vol] 1.42 10*3/uL 0.83-4.51 [facility] Basophil percentageOrdered B y: Alejo Salcido on 05-06-2022 Basophils/100 WBC (Bld) 0.6 % 0-1 [facility] Bilirubin [Mass/Vol] 0.50 mg/dL 0.20-1.00 [facility] Comment on above: For patients on eltr ombopag therapy, use of [facility] TBIL is not recommended. Chloride [Moles/Vol] 110 mmol/L 98-107 [facility] Eosinophils/100 WBC (Bld) 2.1 % 0-5 [facility] Glucose [Mass/Vol] 84 mg/dL 74-106 [facility] Neutrophils (Bld) [#/Vol] 2.6 10*3/uL 2.0-7.7 [facility] Neutrophils/100 WBC (Bld) 53.7 % 47-70 [facility] Potassium [Moles/Vol] 4.1 mmol/L 3.5-5.1 [facility] Protein [Mass/Vol] 6.9 g/dL 6.4-8.2 [facility] Sodium [Moles/Vol] 142 mmol/L 136-145 [facility] WBC (Bld) [#/Vol] 4.8 10*3/uL 4.4-11.0 [facility] Blood erythrocytes count (nu mber/volume)Ordered By: Alejo Salcido on 05-06-2022 RBC (Bld) [#/Vol] 3.47 10*6/uL 4.2-5.4 [facility] Blood hemoglobin measurement (mass/volume)Ordered By: Alejo Salcido on 05-06-2022 Hemoglobin (Bld) [Mass/Vol] 11.1 g/dL 12.0-15.0 [facility] Blood lymphocytes/100 leukoc ytesOrdered By: Alejo Salcido on 05-06-2022 Lymphocytes/100 WBC (Bld) 29.8 % 19-41 [facility] Blood monocytes/100 leukocyt esOrdered By: Alejo Salcido on 05-06-2022 Monocytes/100 WBC (Bld) 13.4 % 0-10 [facility] Blood platelet mean volumeOr dered By: Alejo Salcido on 05-06-2022 Platelet mean volume (Bld) [Entitic vol] 9.4 fL 6.2-12.0 [facility] Determination of erythrocyte mean corpuscular volume (MCV)Ordered By: Alejo Salcido on 05-06-2022 MCV (RBC) [Entitic vol] 98.3 fL 81-99 [facility] Hematocrit Auto (Bld) [Volum e fraction]Ordered By: Alejo Salcido on 05-06-2022 Hematocrit (Bld) [Volume fraction] 34.1 % 37-47 [facility] Laboratory - Chemistry and C hemistry - challengeOrdered By: Alejo Salcido on 05-06-2022 ALP [Catalytic activity/Vol] 117 U/L 45-117 [facility] ALT [Catalytic activity/Vol] 21 U/L 13-56 [facility] CO2 [Moles/Vol] 26.0 mmol/L 21.0-32.0 [facility] Globulin (S) [Mass/Vol] 4.3 g/dL 2.2-4.2 [facility] Urea nitrogen/Creatinine [Mass ratio] 15.9 mg/mg 10-20 [facility] Laboratory - Hematology and Cell countsOrdered By: Alejo Salcido on 05-06-2022 Anisocytosis Ql (Bld) 1+ [facility] Erythrocyte distribution width (RBC) [Entitic vol] 81.2 fL 35.1-43.9 [facility] Erythrocyte distribution width (RBC) [Ratio] 23.4 % 11.6-14.6 [facility] Immature granulocytes/100 WBC (Bld) 0.400 % 0.0-0.9 [facility] Comment on above: IG% - Immature Granu locytes (promyelocytes, myelocytes and metamyelocytes) > 1% indicates that a LEFT SHIFT is Present. MCH (RBC) [Entitic mass] 32.0 pg 27.0-32.0 [facility] Nucleated RBC/100 WBC (Bld) [Ratio] 0 % 0-5 [facility] MCHC Auto (RBC) [Mass/Vol]Or dered By: Alejo Salcido on 05-06-2022 MCHC (RBC) [Mass/Vol] 32.6 g/dL 32-36 [facility] No Panel InformationOrdered By: Alejo Salcido on 05-06-2022 Estimated GFR (MDRD) Amer 130 mL/min >60 [facility] Comment on above: GFR Calc Estimated GFR (MDRD) Non-Af Amer 108 mL/min >60 [facility] Comment on above: Non- GFR Calc Thyroid Stimulating Hormone (TSH) 1.29 uIU/mL 0.358-3.74 [facility] Platelets bldOrdered By: Levi Salcido on 05-06-2022 Platelets (Bld) [#/Vol] 110 10*3/uL 150-450 [facility] Serum or plasma albumin yonatan urement (mass/volume)Ordered By: Alejo Salcido on 05-06-2022 Albumin [Mass/Vol] 2.6 g/dL 3.2-5.0 [facility] Serum or plasma albumin/glob ulin mass ratioOrdered By: Alejo Salcido on 05-06-2022 Albumin/Globulin [Mass ratio] 0.6 {ratio} 0.9-2.4 [facility] Serum or plasma calcium yonatan urement (mass/volume)Ordered By: Alejo Salcido on 05-06-2022 Calcium [Mass/Vol] 9.1 mg/dL 8.5-10.1 [facility] Serum or plasma creatinine m easurement (mass/volume)Ordered By: Alejo Salcido on 05-06-2022 Creatinine [Mass/Vol] 0.57 mg/dL 0.55-1.02 [facility] Comment on above: The validity of the calculated GFR & GFRAA in patients over 70 years has not been determined. Clinical correlation is essential. Serum or plasma urea nitroge n measurement (mass/volume)Ordered By: Alejo Salcido on 05-06-2022 Urea nitrogen [Mass/Vol] 9 mg/dL 7-18 [facility] Thin prep Papanicolaou smear with manual screeningOrdered By: Alejo Salcido on 05-06-2022 Thin prep Papanicolaou smear with manual screening 26 U/L 15-37 [facility] Thin prep Papanicolaou smear with manual screening 6 5-15 [facility] Absolute lymphocyte countOrd ered By: Payam Reyna on 04-01-2022 Lymphocytes Auto (Unsp spec) [#/Vol] 1.69 10*3/uL 0.83-4.51 [facility] Basophil percentageOrdered B y: Payam Reyna on 04-01-2022 Basophils/100 WBC (Bld) 0.6 % 0-1 [facility] Bilirubin [Mass/Vol] 0.50 mg/dL 0.20-1.00 [facility] Comment on above: For patients on eltr ombopag therapy, use of [facility] TBIL is not recommended. Chloride [Moles/Vol] 110 mmol/L 98-107 [facility] Eosinophils/100 WBC (Bld) 1.8 % 0-5 [facility] Glucose [Mass/Vol] 81 mg/dL 74-106 [facility] Neutrophils (Bld) [#/Vol] 2.7 10*3/uL 2.0-7.7 [facility] Neutrophils/100 WBC (Bld) 53.0 % 47-70 [facility] Potassium [Moles/Vol] 4.0 mmol/L 3.5-5.1 [facility] Protein [Mass/Vol] 6.9 g/dL 6.4-8.2 [facility] Sodium [Moles/Vol] 145 mmol/L 136-145 [facility] WBC (Bld) [#/Vol] 5.1 10*3/uL 4.4-11.0 [facility] Blood erythrocytes count (nu mber/volume)Ordered By: Payam Reyna on 04-01-2022 RBC (Bld) [#/Vol] 3.56 10*6/uL 4.2-5.4 [facility] Blood hemoglobin measurement (mass/volume)Ordered By: Payam Reyna on 04-01-2022 Hemoglobin (Bld) [Mass/Vol] 10.5 g/dL 12.0-15.0 [facility] Blood lymphocytes/100 leukoc ytesOrdered By: Payam Reyna on 04-01-2022 Lymphocytes/100 WBC (Bld) 33.2 % 19-41 [facility] Blood monocytes/100 leukocyt esOrdered By: Payam Reyna on 04-01-2022 Monocytes/100 WBC (Bld) 11.2 % 0-10 [facility] Blood platelet mean volumeOr dered By: Payam Reyna on 04-01-2022 Platelet mean volume (Bld) [Entitic vol] 10.3 fL 6.2-12.0 [facility] Determination of erythrocyte mean corpuscular volume (MCV)Ordered By: Payam Reyna on 04-01-2022 MCV (RBC) [Entitic vol] 92.7 fL 81-99 [facility] Hematocrit Auto (Bld) [Volum e fraction]Ordered By: Payam Reyna on 04-01-2022 Hematocrit (Bld) [Volume fraction] 33.0 % 37-47 [facility] Laboratory - Chemistry and C hemistry - challengeOrdered By: Payam Reyna on 04-01-2022 ALP [Catalytic activity/Vol] 75 U/L 45-117 [facility] ALT [Catalytic activity/Vol] 21 U/L 13-56 [facility] CO2 [Moles/Vol] 25.0 mmol/L 21.0-32.0 [facility] Globulin (S) [Mass/Vol] 4.3 g/dL 2.2-4.2 [facility] Urea nitrogen/Creatinine [Mass ratio] 18.4 mg/mg 10-20 [facility] Laboratory - Hematology and Cell countsOrdered By: Payam Reyna on 04-01-2022 Anisocytosis Ql (Bld) RARE [facility] Erythrocyte distribution width (RBC) [Entitic vol] 73.0 fL 35.1-43.9 [facility] Erythrocyte distribution width (RBC) [Ratio] 22.1 % 11.6-14.6 [facility] Immature granulocytes/100 WBC (Bld) 0.200 % 0.0-0.9 [facility] Comment on above: IG% - Immature Granu locytes (promyelocytes, myelocytes and metamyelocytes) > 1% indicates that a LEFT SHIFT is Present. MCH (RBC) [Entitic mass] 29.5 pg 27.0-32.0 [facility] Nucleated RBC/100 WBC (Bld) [Ratio] 0 % 0-5 [facility] MCHC Auto (RBC) [Mass/Vol]Or dered By: Payam Reyna on 04-01-2022 MCHC (RBC) [Mass/Vol] 31.8 g/dL 32-36 [facility] No Panel InformationOrdered By: Payam Reyna on 04-01-2022 Estimated GFR (MDRD) Amer 101 mL/min >60 [facility] Comment on above: GFR Calc Estimated GFR (MDRD) Non-Af Amer 83 mL/min >60 [facility] Comment on above: Non- GFR Calc Platelets bldOrdered By: Fredy Reyna on 04-01-2022 Platelets (Bld) [#/Vol] 127 10*3/uL 150-450 [facility] Serum or plasma albumin yonatan urement (mass/volume)Ordered By: Payam Reyna on 04-01-2022 Albumin [Mass/Vol] 2.6 g/dL 3.2-5.0 [facility] Serum or plasma albumin/glob ulin mass ratioOrdered By: Payam Reyna on 04-01-2022 Albumin/Globulin [Mass ratio] 0.6 {ratio} 0.9-2.4 [facility] Serum or plasma calcium yonatan urement (mass/volume)Ordered By: Payam Reyna on 04-01-2022 Calcium [Mass/Vol] 9.1 mg/dL 8.5-10.1 [facility] Serum or plasma creatinine m easurement (mass/volume)Ordered By: Payam Reyna on 04-01-2022 Creatinine [Mass/Vol] 0.71 mg/dL 0.55-1.02 [facility] Comment on above: The validity of the calculated GFR & GFRAA in patients over 70 years has not been determined. Clinical correlation is essential. Serum or plasma urea nitroge n measurement (mass/volume)Ordered By: Payam Reyna on 04-01-2022 Urea nitrogen [Mass/Vol] 13 mg/dL 7-18 [facility] Thin prep Papanicolaou smear with manual screeningOrdered By: Payam Reyna on 04-01-2022 Thin prep Papanicolaou smear with manual screening 24 U/L 15-37 [facility] Thin prep Papanicolaou smear with manual screening 10 5-15 [facility] CBC W Ordered Manual Differe ntial panel (Bld)on 03-22-2022 Basophils (Bld) [#/Vol] 0.05 10*3/uL <0.11 k/uL [facility] Basophils/100 WBC (Bld) 0.8 % [facility] Eosinophils (Bld) [#/Vol] 0.09 10*3/uL <0.46 k/uL [facility] Eosinophils/100 WBC (Bld) 1.4 % [facility] Erythrocyte distribution width (RBC) [Ratio] 20.3 % High 11.5 - 15.0 % [facility] Hematocrit (Bld) [Volume fraction] 33.9 % Low 36.0 - 46.0 % [facility] Hemoglobin (Bld) [Mass/Vol] 10.8 g/dL Low 11.5 - 15.5 g/dL [facility] Immature granulocytes (Bld) [#/Vol] <0.10 k/uL [facility] Immature granulocytes/100 WBC (Bld) 0.3 % [facility] Lymphocytes (Bld) [#/Vol] 1.43 10*3/uL 1.00 - 4.00 k/uL [facility] Lymphocytes/100 WBC (Bld) 22.8 % [facility] MCH (RBC) [Entitic mass] 27.6 pg 26.0 - 34.0 pg [facility] MCHC (RBC) [Mass/Vol] 31.9 g/dL 30.5 - 36.0 g/dL [facility] MCV (RBC) [Entitic vol] 86.7 fL 80.0 - 100.0 fL [facility] Monocytes (Bld) [#/Vol] 0.85 10*3/uL <0.87 k/uL [facility] Monocytes/100 WBC (Bld) 13.6 % [facility] Neutrophils (Bld) [#/Vol] 3.83 10*3/uL 1.45 - 7.50 k/uL [facility] Neutrophils/100 WBC (Bld) 61.1 % [facility] Platelet mean volume (Bld) [Entitic vol] 9.7 fL 9.0 - 12.7 fL [facility] Platelets (Bld) [#/Vol] 136 10*3/uL Low 150 - 400 k/uL [facility] RBC (Bld) [#/Vol] 3.91 10*6/uL 3.90 - 5.2 0 m/uL [facility] WBC (Bld) [#/Vol] 6.27 10*3/uL 3.70 - 11.00 k/uL [facility] Transferrin receptor.soluble [Mass/Vol]on 03-15-2022 Transferrin receptor.soluble [Moles/Vol] 8.7 mg/L High 1.9 - 4.4 mg/L [facility] Comprehensive metabolic 2000 panelon 03-14-2022 Albumin [Mass/Vol] 3.6 g/dL Low 3.9 - 4.9 g/dL [facility] ALP [Catalytic activity/Vol] 100 U/L 34 - 123 U/L [facility] ALT [Catalytic activity/Vol] 14 U/L 7 - 38 U/L [facility] Anion gap [Moles/Vol] 9 mmol/L 9 - 18 mmol/L [facility] AST [Catalytic activity/Vol] 27 U/L 13 - 35 U/L [facility] Bilirubin [Mass/Vol] 0.6 mg/dL 0.2 - 1 .3 mg/dL [facility] Calcium [Mass/Vol] 9.4 mg/dL 8.5 - 10. 2 mg/dL [facility] Chloride [Moles/Vol] 104 mmol/L 97 - 10 5 mmol/L [facility] CO2 [Moles/Vol] 24 mmol/L 22 - 30 mmol/L [facility] Creatinine [Mass/Vol] 0.63 mg/dL 0.58 - 0.96 mg/dL [facility] Estimated Glomerular Filtration Rate 87 mL/min/1.73m >=60 mL/min/1.73 m [facility] Glucose [Mass/Vol] 120 mg/dL High 74 - 99 mg/dL [facility] Potassium [Moles/Vol] 3.9 mmol/L 3.7 - 5.1 mmol/L [facility] Protein [Mass/Vol] 7.3 g/dL 6.3 - 8.0 g/dL [facility] Sodium [Moles/Vol] 137 mmol/L 136 - 144 mmol/L [facility] Urea nitrogen [Mass/Vol] 14 mg/dL 7 - 21 mg/dL [facility] Iron and Iron binding capaci ty panelon 03-14-2022 Iron [Mass/Vol] 249 ug/dL High 41 - 186 ug/dL [facility] Iron binding capacity [Mass/Vol] 383 ug/dL 232 - 386 ug/dL [facility] Iron/TIBC [Molar ratio] 65.0 % High 15.0 - 57.0 % [facility] Laboratory - Chemistry and C hemistry - challengeon 03-14-2022 Ferritin [Mass/Vol] 45.9 ng/mL 14.7 - 205.1 ng/mL [facility] LDH [Catalytic activity/Vol] 194 U/L 135 - 214 U/L [facility] Laboratory - Hematology and Cell countson 03-14-2022 Reticulocytes (Bld) [#/Vol] 0.47408 10*3/uL 0.018 - 0.100 M/uL [facility] Reticulocytes (Bld) [#/Vol]o n 03-14-2022 Reticulocytes/100 RBC (Bld) 1.3 % 0.4 - 2.0 % [facility] Absolute lymphocyte countOrd ered By: [facility] on 03-07-2022 Lymphocytes Auto (Unsp spec) [#/Vol] 1.39 10*3/uL 0.83-4.51 [facility] Basophil percentageOrdered B y: [facility] on 03-07-2022 Basophils/100 WBC (Bld) 1.0 % 0-1 [facility] Eosinophils/100 WBC (Bld) 2.0 % 0-5 [facility] Neutrophils (Bld) [#/Vol] 2.0 10*3/uL 2.0-7.7 [facility] Neutrophils/100 WBC (Bld) 48.5 % 47-70 [facility] WBC (Bld) [#/Vol] 4.1 10*3/uL 4.4-11.0 [facility] Blood erythrocytes count (nu mber/volume)Ordered By: [facility] on 03-07-2022 RBC (Bld) [#/Vol] 3.93 10*6/uL 4.2-5.4 [facility] Blood hemoglobin measurement (mass/volume)Ordered By: [facility] on 03-07-2022 Hemoglobin (Bld) [Mass/Vol] 10.8 g/dL 12.0-15.0 [facility] Blood lymphocytes/100 leukoc ytesOrdered By: [facility] on 03-07-2022 Lymphocytes/100 WBC (Bld) 34.1 % 19-41 [facility] Blood monocytes/100 leukocyt esOrdered By: [facility] on 03-07-2022 Monocytes/100 WBC (Bld) 14.2 % 0-10 [facility] Blood platelet mean volumeOr dered By: [facility] on 03-07-2022 Platelet mean volume (Bld) [Entitic vol] 9.7 fL 6.2-12.0 [facility] Determination of erythrocyte mean corpuscular volume (MCV)Ordered By: [facility] on 03-07-2022 MCV (RBC) [Entitic vol] 84.5 fL 81-99 [facility] Hematocrit Auto (Bld) [Volum e fraction]Ordered By: [facility] on 03-07-2022 Hematocrit (Bld) [Volume fraction] 33.2 % 37-47 [facility] Laboratory - Hematology and Cell countsOrdered By: [facility] on 03-07-2022 Erythrocyte distribution width (RBC) [Entitic vol] 50.5 fL 35.1-43.9 [facility] Erythrocyte distribution width (RBC) [Ratio] 16.3 % 11.6-14.6 [facility] Immature granulocytes/100 WBC (Bld) 0.200 % 0.0-0.9 [facility] Comment on above: IG% - Immature Granu locytes (promyelocytes, myelocytes and metamyelocytes) > 1% indicates that a LEFT SHIFT is Present. MCH (RBC) [Entitic mass] 27.5 pg 27.0-32.0 [facility] Nucleated RBC/100 WBC (Bld) [Ratio] 0 % 0-5 [facility] MCHC Auto (RBC) [Mass/Vol]Or dered By: [facility] on 03-07-2022 MCHC (RBC) [Mass/Vol] 32.5 g/dL 32-36 [facility] Comment on above: Delta: 30.2 on 03/04-044 Platelets bldOrdered By: [facility] on 03-07-2022 Platelets (Bld) [#/Vol] 155 10*3/uL 150-450 [facility] Absolute lymphocyte countOrd ered By: Alejo Salcido on 03-04-2022 Lymphocytes Auto (Unsp spec) [#/Vol] 1.30 10*3/uL 0.83-4.51 [facility] Basophil percentageOrdered B y: Alejo Salcido on 03-04-2022 Basophils/100 WBC (Bld) 0.5 % 0-1 [facility] Bilirubin [Mass/Vol] 0.50 mg/dL 0.20-1.00 [facility] Comment on above: For patients on eltr ombopag therapy, use of [facility] TBIL is not recommended. Chloride [Moles/Vol] 113 mmol/L 98-107 [facility] Eosinophils/100 WBC (Bld) 2.8 % 0-5 [facility] Glucose [Mass/Vol] 90 mg/dL 74-106 [facility] Neutrophils (Bld) [#/Vol] 2.1 10*3/uL 2.0-7.7 [facility] Neutrophils/100 WBC (Bld) 51.4 % 47-70 [facility] Potassium [Moles/Vol] 4.4 mmol/L 3.5-5.1 [facility] Protein [Mass/Vol] 7.2 g/dL 6.4-8.2 [facility] Sodium [Moles/Vol] 143 mmol/L 136-145 [facility] WBC (Bld) [#/Vol] 4.0 10*3/uL 4.4-11.0 [facility] Blood erythrocytes count (nu mber/volume)Ordered By: Alejo Salcido on 03-04-2022 RBC (Bld) [#/Vol] 2.94 10*6/uL 4.2-5.4 [facility] Blood hemoglobin measurement (mass/volume)Ordered By: Alejo Salcido on 03-04-2022 Hemoglobin (Bld) [Mass/Vol] 7.7 g/dL 12.0-15.0 [facility] Blood lymphocytes/100 leukoc ytesOrdered By: Alejo Salcido on 03-04-2022 Lymphocytes/100 WBC (Bld) 32.5 % 19-41 [facility] Blood monocytes/100 leukocyt esOrdered By: Alejo Salcido on 03-04-2022 Monocytes/100 WBC (Bld) 12.8 % 0-10 [facility] Blood platelet mean volumeOr dered By: Alejo Salcido on 03-04-2022 Platelet mean volume (Bld) [Entitic vol] 11.0 fL 6.2-12.0 [facility] Determination of erythrocyte mean corpuscular volume (MCV)Ordered By: Alejo Salcido on 03-04-2022 MCV (RBC) [Entitic vol] 86.7 fL 81-99 [facility] Hematocrit Auto (Bld) [Volum e fraction]Ordered By: Alejo Salcido on 03-04-2022 Hematocrit (Bld) [Volume fraction] 25.5 % 37-47 [facility] Laboratory - Chemistry and C hemistry - challengeOrdered By: Alejo Salcido on 03-04-2022 ALP [Catalytic activity/Vol] 87 U/L 45-117 [facility] ALT [Catalytic activity/Vol] 19 U/L 13-56 [facility] CO2 [Moles/Vol] 25.0 mmol/L 21.0-32.0 [facility] Globulin (S) [Mass/Vol] 4.5 g/dL 2.2-4.2 [facility] Urea nitrogen/Creatinine [Mass ratio] 18.4 mg/mg 10-20 [facility] Laboratory - Hematology and Cell countsOrdered By: Alejo Salcido on 03-04-2022 Erythrocyte distribution width (RBC) [Entitic vol] 53.1 fL 35.1-43.9 [facility] Erythrocyte distribution width (RBC) [Ratio] 17.1 % 11.6-14.6 [facility] Immature granulocytes/100 WBC (Bld) 0.000 % 0.0-0.9 [facility] Comment on above: IG% - Immature Granu locytes (promyelocytes, myelocytes and metamyelocytes) > 1% indicates that a LEFT SHIFT is Present. MCH (RBC) [Entitic mass] 26.2 pg 27.0-32.0 [facility] Nucleated RBC/100 WBC (Bld) [Ratio] 0 % 0-5 [facility] MCHC Auto (RBC) [Mass/Vol]Or dered By: Alejo Salcido on 03-04-2022 MCHC (RBC) [Mass/Vol] 30.2 g/dL 32-36 [facility] No Panel InformationOrdered By: Alejo Salcido on 03-04-2022 Estimated GFR (MDRD) Amer 101 mL/min >60 [facility] Comment on above: GFR Calc Estimated GFR (MDRD) Non-Af Amer 83 mL/min >60 [facility] Comment on above: Non- GFR Calc Platelets bldOrdered By: Levi Salcido on 03-04-2022 Platelets (Bld) [#/Vol] 163 10*3/uL 150-450 [facility] Serum or plasma albumin yonatan urement (mass/volume)Ordered By: Alejo Salcido on 03-04-2022 Albumin [Mass/Vol] 2.7 g/dL 3.2-5.0 [facility] Serum or plasma albumin/glob ulin mass ratioOrdered By: Alejo Salcido on 03-04-2022 Albumin/Globulin [Mass ratio] 0.6 {ratio} 0.9-2.4 [facility] Serum or plasma calcium yonatan urement (mass/volume)Ordered By: Alejo Salcido on 03-04-2022 Calcium [Mass/Vol] 9.1 mg/dL 8.5-10.1 [facility] Serum or plasma creatinine m easurement (mass/volume)Ordered By: Alejo Salcido on 03-04-2022 Creatinine [Mass/Vol] 0.71 mg/dL 0.55-1.02 [facility] Comment on above: The validity of the calculated GFR & GFRAA in patients over 70 years has not been determined. Clinical correlation is essential. Serum or plasma urea nitroge n measurement (mass/volume)Ordered By: Alejo Salcido on 03-04-2022 Urea nitrogen [Mass/Vol] 13 mg/dL 7-18 [facility] Thin prep Papanicolaou smear with manual screeningOrdered By: Alejo Salcido on 03-04-2022 Thin prep Papanicolaou smear with manual screening 22 U/L 15-37 [facility] Thin prep Papanicolaou smear with manual screening 5 5-15 [facility] Culture, urineOrdered By: Angelito Reyna on 02-23-2022 Bacteria identified Cx Nom (U) Culture exhibits no growth. [facility] Bilirubin Test strip Ql (U)O rdered By: Payam Reyna on 02-21-2022 Bilirubin Ql (U) Negative Negative [facility] Ketones Test strip Ql (U)Ord ered By: Payam Reyna on 02-21-2022 Ketones Ql (U) 5 mg/dl Negative [facility] Nitrite Test strip Ql (U)Ord ered By: Payam Reyna on 02-21-2022 Nitrite Ql (U) Negative Negative [facility] Protein Test strip Ql (U)Ord ered By: Payam Reyna on 02-21-2022 Protein Ql (U) 30 mg/dl Negative [facility] Urine blood detectionOrdered By: Payam Reyna on 02-21-2022 RBC Ql (U) 250 /ul Negative [facility] Urine clarityOrdered By: Fredy Reyna on 02-21-2022 Clarity (U) Cloudy Clear [facility] Urine color determinationOrd ered By: Payam Reyna on 02-21-2022 Color (U) Starla Yellow [facility] Urine glucose detectionOrder ed By: Payam Reyna on 02-21-2022 Glucose Ql (U) Normal mg/dl Normal [facility] Urine leukocyte esterase det ection by dipstickOrdered By: Payam Reyna on 02-21-2022 Leukocyte esterase Test strip Ql (U) 25 /ul Negative [facility] Urine pHOrdered By: Deloris Reyna on 02-21-2022 pH (U) 6.0 [pH] 5.0 - 8.0 [facility] Urine specific gravity measu rementOrdered By: Payam Reyna on 02-21-2022 Specific gravity (U) [Rel density] 1.015 1.002-1.030 [facility] Urobilinogen Auto test strip Ql (U)Ordered By: Payam Reyna on 02-21-2022 Urobilinogen Ql (U) Normal mg/dl Normal [facility] Absolute lymphocyte countOrd ered By: Alejo Salcido on 02-04-2022 Lymphocytes Auto (Unsp spec) [#/Vol] 1.51 10*3/uL 0.83-4.51 [facility] Basophil percentageOrdered B y: Alejo Salcido on 02-04-2022 Basophils/100 WBC (Bld) 1.0 % 0-1 [facility] Bilirubin [Mass/Vol] 0.50 mg/dL 0.20-1.00 [facility] Comment on above: For patients on eltr ombopag therapy, use of [facility] TBIL is not recommended. Chloride [Moles/Vol] 111 mmol/L 98-107 [facility] Eosinophils/100 WBC (Bld) 2.5 % 0-5 [facility] Glucose [Mass/Vol] 79 mg/dL 74-106 [facility] Neutrophils (Bld) [#/Vol] 2.9 10*3/uL 2.0-7.7 [facility] Neutrophils/100 WBC (Bld) 55.7 % 47-70 [facility] Potassium [Moles/Vol] 4.1 mmol/L 3.5-5.1 [facility] Protein [Mass/Vol] 7.2 g/dL 6.4-8.2 [facility] Sodium [Moles/Vol] 140 mmol/L 136-145 [facility] WBC (Bld) [#/Vol] 5.2 10*3/uL 4.4-11.0 [facility] Blood erythrocytes count (nu mber/volume)Ordered By: Alejo Salcido on 02-04-2022 RBC (Bld) [#/Vol] 3.06 10*6/uL 4.2-5.4 [facility] Blood hemoglobin measurement (mass/volume)Ordered By: Alejo Salcido on 02-04-2022 Hemoglobin (Bld) [Mass/Vol] 8.3 g/dL 12.0-15.0 [facility] Blood lymphocytes/100 leukoc ytesOrdered By: Alejo Salcido on 02-04-2022 Lymphocytes/100 WBC (Bld) 29.2 % 19-41 [facility] Blood monocytes/100 leukocyt esOrdered By: Alejo Salcido on 02-04-2022 Monocytes/100 WBC (Bld) 11.2 % 0-10 [facility] Blood platelet mean volumeOr dered By: Alejo Salcido on 02-04-2022 Platelet mean volume (Bld) [Entitic vol] 9.5 fL 6.2-12.0 [facility] Determination of erythrocyte mean corpuscular volume (MCV)Ordered By: Alejo Salcido on 02-04-2022 MCV (RBC) [Entitic vol] 87.3 fL 81-99 [facility] Hematocrit Auto (Bld) [Volum e fraction]Ordered By: Alejo Salcido on 02-04-2022 Hematocrit (Bld) [Volume fraction] 26.7 % 37-47 [facility] Laboratory - Chemistry and C hemistry - challengeOrdered By: Alejo Salcido on 02-04-2022 ALP [Catalytic activity/Vol] 87 U/L 45-117 [facility] ALT [Catalytic activity/Vol] 20 U/L 13-56 [facility] CO2 [Moles/Vol] 25.0 mmol/L 21.0-32.0 [facility] Globulin (S) [Mass/Vol] 4.5 g/dL 2.2-4.2 [facility] Urea nitrogen/Creatinine [Mass ratio] 20.9 mg/mg 10-20 [facility] Laboratory - Hematology and Cell countsOrdered By: Alejo Salcido on 02-04-2022 Erythrocyte distribution width (RBC) [Entitic vol] 54.0 fL 35.1-43.9 [facility] Erythrocyte distribution width (RBC) [Ratio] 17.1 % 11.6-14.6 [facility] Immature granulocytes/100 WBC (Bld) 0.400 % 0.0-0.9 [facility] Comment on above: IG% - Immature Granu locytes (promyelocytes, myelocytes and metamyelocytes) > 1% indicates that a LEFT SHIFT is Present. MCH (RBC) [Entitic mass] 27.1 pg 27.0-32.0 [facility] Nucleated RBC/100 WBC (Bld) [Ratio] 0 % 0-5 [facility] MCHC Auto (RBC) [Mass/Vol]Or dered By: Alejo Salcido on 02-04-2022 MCHC (RBC) [Mass/Vol] 31.1 g/dL 32-36 [facility] No Panel InformationOrdered By: Alejo Salcido on 02-04-2022 Estimated GFR (MDRD) Amer 107 mL/min >60 [facility] Comment on above: GFR Calc Estimated GFR (MDRD) Non-Af Amer 89 mL/min >60 [facility] Comment on above: Non- GFR Calc Platelets bldOrdered By: Levi Salcido on 02-04-2022 Platelets (Bld) [#/Vol] 155 10*3/uL 150-450 [facility] Serum or plasma albumin yonatan urement (mass/volume)Ordered By: Alejo Salcido on 02-04-2022 Albumin [Mass/Vol] 2.7 g/dL 3.2-5.0 [facility] Serum or plasma albumin/glob ulin mass ratioOrdered By: Alejo Salcido on 02-04-2022 Albumin/Globulin [Mass ratio] 0.6 {ratio} 0.9-2.4 [facility] Serum or plasma calcium yonatan urement (mass/volume)Ordered By: Alejo Salcido on 02-04-2022 Calcium [Mass/Vol] 8.9 mg/dL 8.5-10.1 [facility] Serum or plasma creatinine m easurement (mass/volume)Ordered By: Alejo Salcido on 02-04-2022 Creatinine [Mass/Vol] 0.67 mg/dL 0.55-1.02 [facility] Comment on above: The validity of the calculated GFR & GFRAA in patients over 70 years has not been determined. Clinical correlation is essential. Serum or plasma urea nitroge n measurement (mass/volume)Ordered By: Alejo Salcido on 02-04-2022 Urea nitrogen [Mass/Vol] 14 mg/dL 7-18 [facility] Thin prep Papanicolaou smear with manual screeningOrdered By: Alejo Salcido on 02-04-2022 Thin prep Papanicolaou smear with manual screening 20 U/L 15-37 [facility] Thin prep Papanicolaou smear with manual screening 4 5-15 [facility] Absolute lymphocyte countOrd ered By: Alejo Salicdo on 01-17-2022 Lymphocytes Auto (Unsp spec) [#/Vol] 1.45 10*3/uL 0.83-4.51 [facility] Basophil percentageOrdered B y: Alejo Salcido on 01-17-2022 Basophils/100 WBC (Bld) 0.8 % 0-1 [facility] Eosinophils/100 WBC (Bld) 1.9 % 0-5 [facility] Neutrophils (Bld) [#/Vol] 3.0 10*3/uL 2.0-7.7 [facility] Neutrophils/100 WBC (Bld) 56.3 % 47-70 [facility] WBC (Bld) [#/Vol] 5.3 10*3/uL 4.4-11.0 [facility] Blood erythrocytes count (nu mber/volume)Ordered By: Alejo Salcido on 01-17-2022 RBC (Bld) [#/Vol] 2.79 10*6/uL 4.2-5.4 [facility] Blood hemoglobin measurement (mass/volume)Ordered By: Alejo Salcido on 01-17-2022 Hemoglobin (Bld) [Mass/Vol] 8.0 g/dL 12.0-15.0 [facility] Blood lymphocytes/100 leukoc ytesOrdered By: Alejo Salcido on 01-17-2022 Lymphocytes/100 WBC (Bld) 27.4 % 19-41 [facility] Blood monocytes/100 leukocyt esOrdered By: Alejo Salcido on 01-17-2022 Monocytes/100 WBC (Bld) 13.4 % 0-10 [facility] Blood platelet mean volumeOr dered By: Alejo Salcido on 01-17-2022 Platelet mean volume (Bld) [Entitic vol] 9.9 fL 6.2-12.0 [facility] Determination of erythrocyte mean corpuscular volume (MCV)Ordered By: Alejo Salcido on 01-17-2022 MCV (RBC) [Entitic vol] 88.9 fL 81-99 [facility] Hematocrit Auto (Bld) [Volum e fraction]Ordered By: Alejo Salcido on 01-17-2022 Hematocrit (Bld) [Volume fraction] 24.8 % 37-47 [facility] Laboratory - Hematology and Cell countsOrdered By: Alejo Salcido on 01-17-2022 Erythrocyte distribution width (RBC) [Entitic vol] 58.2 fL 35.1-43.9 [facility] Erythrocyte distribution width (RBC) [Ratio] 18.2 % 11.6-14.6 [facility] Immature granulocytes/100 WBC (Bld) 0.200 % 0.0-0.9 [facility] Comment on above: IG% - Immature Granu locytes (promyelocytes, myelocytes and metamyelocytes) > 1% indicates that a LEFT SHIFT is Present. MCH (RBC) [Entitic mass] 28.7 pg 27.0-32.0 [facility] Nucleated RBC/100 WBC (Bld) [Ratio] 0 % 0-5 [facility] MCHC Auto (RBC) [Mass/Vol]Or dered By: Alejo Salcido on 01-17-2022 MCHC (RBC) [Mass/Vol] 32.3 g/dL 32-36 [facility] Platelets bldOrdered By: Levi Salcido on 01-17-2022 Platelets (Bld) [#/Vol] 169 10*3/uL 150-450 [facility] Absolute lymphocyte countOrd ered By: Alejo Salcido on 01-03-2022 Lymphocytes Auto (Unsp spec) [#/Vol] 1.25 10*3/uL 0.83-4.51 [facility] Basophil percentageOrdered B y: Alejo Salcido on 01-03-2022 Basophils/100 WBC (Bld) 0.5 % 0-1 [facility] Eosinophils/100 WBC (Bld) 2.1 % 0-5 [facility] Neutrophils (Bld) [#/Vol] 2.5 10*3/uL 2.0-7.7 [facility] Neutrophils/100 WBC (Bld) 57.2 % 47-70 [facility] WBC (Bld) [#/Vol] 4.4 10*3/uL 4.4-11.0 [facility] Blood erythrocytes count (nu mber/volume)Ordered By: Alejo Salcido on 01-03-2022 RBC (Bld) [#/Vol] 2.97 10*6/uL 4.2-5.4 [facility] Blood hemoglobin measurement (mass/volume)Ordered By: Alejo Salcido on 01-03-2022 Hemoglobin (Bld) [Mass/Vol] 8.3 g/dL 12.0-15.0 [facility] Blood lymphocytes/100 leukoc ytesOrdered By: Alejo Salcido on 01-03-2022 Lymphocytes/100 WBC (Bld) 28.6 % 19-41 [facility] Blood monocytes/100 leukocyt esOrdered By: Alejo Salcido on 01-03-2022 Monocytes/100 WBC (Bld) 11.4 % 0-10 [facility] Blood platelet mean volumeOr dered By: Alejo Salcido on 01-03-2022 Platelet mean volume (Bld) [Entitic vol] 10.0 fL 6.2-12.0 [facility] Determination of erythrocyte mean corpuscular volume (MCV)Ordered By: Alejo Salcido on 01-03-2022 MCV (RBC) [Entitic vol] 86.5 fL 81-99 [facility] Hematocrit Auto (Bld) [Volum e fraction]Ordered By: Alejo Salcido on 01-03-2022 Hematocrit (Bld) [Volume fraction] 25.7 % 37-47 [facility] Laboratory - Hematology and Cell countsOrdered By: Alejo Salcido on 01-03-2022 Erythrocyte distribution width (RBC) [Entitic vol] 59.0 fL 35.1-43.9 [facility] Erythrocyte distribution width (RBC) [Ratio] 18.8 % 11.6-14.6 [facility] Immature granulocytes/100 WBC (Bld) 0.200 % 0.0-0.9 [facility] Comment on above: IG% - Immature Granu locytes (promyelocytes, myelocytes and metamyelocytes) > 1% indicates that a LEFT SHIFT is Present. MCH (RBC) [Entitic mass] 27.9 pg 27.0-32.0 [facility] Nucleated RBC/100 WBC (Bld) [Ratio] 0 % 0-5 [facility] MCHC Auto (RBC) [Mass/Vol]Or dered By: Alejo Salcido on 01-03-2022 MCHC (RBC) [Mass/Vol] 32.3 g/dL 32-36 [facility] Platelets bldOrdered By: Levi Salcido on 01-03-2022 Platelets (Bld) [#/Vol] 154 10*3/uL 150-450 [facility] CNOVon 01-02-2022 CNOV Office Visit (GUAKRE ) THERESACHRISTIAN Gabriella ([id number]) 1935 F Date Time Provider Department 01/02/22 [...] stool Pain: no Abnormal Vaginal Discharge: no [employer] HISTORY: Last Pap: Date:04/18/20 NIL; Last Mammogram: [...] Hernández MD OBJECTIVE: BP 126/62 Ht 5' 6" (1.68m) Wt 165 lb (74.8kg) BMI 26.64 [...] sooner as needed Referring Provider: GALINA IRAHETA [[id number]] Allergies As of Date: 01/02/2022 Noted Allergy [...] Vaginal atrophy [N95.2] Order(s):UA DIP, URINE (POC) [[id number]] Order #: [id number]. #:[id number] estr (more content not included)... Normal [facility] UA DIP, URINE (POC)on 2021 BILIRUBIN UA (POCT) Negative Negative [facility] CLARITY UA (POCT) Clear [facility] COLOR UA (POCT) Yellow [facility] GLUCOSE UA (POCT) Negative Negative mg/dL [facility] HEMOGLOBIN/BLOOD UA (POCT) Negative Negative [facility] KETONE UA (POCT) Negative Negative mg/dL [facility] LEUKOCYTES UA (POCT) Negative Negative [facility] NITRITE UA (POCT) Negative Negative [facility] PH UA (POCT) 6.5 4.5 - 8.0 [facility] Protein Ql (U) Negative Negative mg/dL [facility] SPECIFIC GRAVITY UA (POCT) 1.010 1.005 - 1.030 [facility] UROBILINOGEN UA (POCT) 0.2 E.U./dL Win[facility] l E.U./dL [facility] Absolute lymphocyte countOrd ered By: Alejo Salcido on 12-31-2021 Lymphocytes Auto (Unsp spec) [#/Vol] 1.26 10*3/uL 0.83-4.51 [facility] Basophil percentageOrdered B y: Alejo Salcido on 12-31-2021 Basophils/100 WBC (Bld) 0.3 % 0-1 [facility] Bilirubin [Mass/Vol] 0.50 mg/dL 0.20-1.00 [facility] Comment on above: For patients on eltr ombopag therapy, use of Dim[facility] TBIL is not recommended. Chloride [Moles/Vol] 113 mmol/L 98-107 [facility] Eosinophils/100 WBC (Bld) 1.6 % 0-5 [facility] Glucose [Mass/Vol] 93 mg/dL 74-106 [facility] Neutrophils (Bld) [#/Vol] 1.8 10*3/uL 2.0-7.7 [facility] Neutrophils/100 WBC (Bld) 49.5 % 47-70 [facility] Potassium [Moles/Vol] 4.3 mmol/L 3.5-5.1 [facility] Protein [Mass/Vol] 6.2 g/dL 6.4-8.2 [facility] Sodium [Moles/Vol] 144 mmol/L 136-145 [facility] WBC (Bld) [#/Vol] 3.6 10*3/uL 4.4-11.0 [facility] Blood erythrocytes count (nu mber/volume)Ordered By: Alejo Salcido on 12-31-2021 RBC (Bld) [#/Vol] 2.73 10*6/uL 4.2-5.4 [facility] Blood hemoglobin measurement (mass/volume)Ordered By: Alejo Salcido on 12-31-2021 Hemoglobin (Bld) [Mass/Vol] 7.5 g/dL 12.0-15.0 [facility] Blood lymphocytes/100 leukoc ytesOrdered By: Alejo Salcido on 12-31-2021 Lymphocytes/100 WBC (Bld) 34.6 % 19-41 [facility] Blood monocytes/100 leukocyt esOrdered By: Alejo Salcido on 12-31-2021 Monocytes/100 WBC (Bld) 13.7 % 0-10 [facility] Blood platelet mean volumeOr dered By: Alejo Salcido on 12-31-2021 Platelet mean volume (Bld) [Entitic vol] 10.4 fL 6.2-12.0 [facility] Determination of erythrocyte mean corpuscular volume (MCV)Ordered By: Alejo Salcido on 12-31-2021 MCV (RBC) [Entitic vol] 88.3 fL 81-99 [facility] Hematocrit Auto (Bld) [Volum e fraction]Ordered By: Alejo Salcido on 12-31-2021 Hematocrit (Bld) [Volume fraction] 24.1 % 37-47 [facility] Laboratory - Chemistry and C hemistry - challengeOrdered By: Alejo Salcido on 12-31-2021 ALP [Catalytic activity/Vol] 75 U/L 45-117 [facility] ALT [Catalytic activity/Vol] 25 U/L 13-56 [facility] CO2 [Moles/Vol] 22.0 mmol/L 21.0-32.0 [facility] Globulin (S) [Mass/Vol] 3.9 g/dL 2.2-4.2 [facility] Urea nitrogen/Creatinine [Mass ratio] 13.7 mg/mg 10-20 [facility] Laboratory - Hematology and Cell countsOrdered By: Alejo Salcido on 12-31-2021 Erythrocyte distribution width (RBC) [Entitic vol] 61.0 fL 35.1-43.9 [facility] Erythrocyte distribution width (RBC) [Ratio] 19.1 % 11.6-14.6 [facility] Immature granulocytes/100 WBC (Bld) 0.300 % 0.0-0.9 [facility] Comment on above: IG% - Immature Granu locytes (promyelocytes, myelocytes and metamyelocytes) > 1% indicates that a LEFT SHIFT is Present. MCH (RBC) [Entitic mass] 27.5 pg 27.0-32.0 [facility] Nucleated RBC/100 WBC (Bld) [Ratio] 0 % 0-5 [facility] MCHC Auto (RBC) [Mass/Vol]Or dered By: Alejo Salcido on 12-31-2021 MCHC (RBC) [Mass/Vol] 31.1 g/dL 32-36 [facility] No Panel InformationOrdered By: Alejo Salcido on 12-31-2021 Estimated GFR (MDRD) Amer 98 mL/min >60 [facility] Estimated GFR (MDRD) Non-Af Amer 81 mL/min >60 [facility] Platelets bldOrdered By: Levi Salcido on 12-31-2021 Platelets (Bld) [#/Vol] 125 10*3/uL 150-450 [facility] Serum or plasma albumin yonatan urement (mass/volume)Ordered By: Alejo Salcido on 12-31-2021 Albumin [Mass/Vol] 2.3 g/dL 3.2-5.0 [facility] Serum or plasma albumin/glob ulin mass ratioOrdered By: Alejo Salcido on 12-31-2021 Albumin/Globulin [Mass ratio] 0.6 {ratio} 0.9-2.4 [facility] Serum or plasma calcium yonatan urement (mass/volume)Ordered By: Alejo Salcido on 12-31-2021 Calcium [Mass/Vol] 8.4 mg/dL 8.5-10.1 [facility] Serum or plasma creatinine m easurement (mass/volume)Ordered By: Alejo Salcido on 12-31-2021 Creatinine [Mass/Vol] 0.73 mg/dL 0.55-1.02 [facility] Comment on above: The validity of the calculated GFR & GFRAA in patients over 70 years has not been determined. Clinical correlation is essential. Serum or plasma urea nitroge n measurement (mass/volume)Ordered By: Alejo Salcido on 12-31-2021 Urea nitrogen [Mass/Vol] 10 mg/dL 7-18 [facility] Thin prep Papanicolaou smear with manual screeningOrdered By: Alejo Salcido on 12-31-2021 Thin prep Papanicolaou smear with manual screening 35 U/L 15-37 [facility] Thin prep Papanicolaou smear with manual screening 9 5-15 [facility] Absolute lymphocyte countOrd ered By: Selma Durham on 12-28-2021 Lymphocytes Auto (Unsp spec) [#/Vol] 0.99 10*3/uL 0.83-4.51 [facility] Basophil percentageOrdered B y: Selma Durham on 12-28-2021 Basophils/100 WBC (Bld) 0.3 % 0-1 [facility] Eosinophils/100 WBC (Bld) 1.0 % 0-5 [facility] Neutrophils (Bld) [#/Vol] 1.5 10*3/uL 2.0-7.7 [facility] Neutrophils/100 WBC (Bld) 51.6 % 47-70 [facility] WBC (Bld) [#/Vol] 2.9 10*3/uL 4.4-11.0 [facility] Blood erythrocytes count (nu mber/volume)Ordered By: Selma Durham on 12-28-2021 RBC (Bld) [#/Vol] 2.60 10*6/uL 4.2-5.4 [facility] Blood hemoglobin measurement (mass/volume)Ordered By: Selma Durham on 12-28-2021 Hemoglobin (Bld) [Mass/Vol] 7.1 g/dL 12.0-15.0 [facility] Blood lymphocytes/100 leukoc ytesOrdered By: Selma Durham on 12-28-2021 Lymphocytes/100 WBC (Bld) 33.8 % 19-41 [facility] Blood monocytes/100 leukocyt esOrdered By: Selma Durham on 12-28-2021 Monocytes/100 WBC (Bld) 13.0 % 0-10 [facility] Blood platelet mean volumeOr dered By: Selma Durham on 12-28-2021 Platelet mean volume (Bld) [Entitic vol] 10.2 fL 6.2-12.0 [facility] Determination of erythrocyte mean corpuscular volume (MCV)Ordered By: Selma Durham on 12-28-2021 MCV (RBC) [Entitic vol] 86.5 fL 81-99 [facility] Hematocrit Auto (Bld) [Volum e fraction]Ordered By: Selma Durham on 12-28-2021 Hematocrit (Bld) [Volume fraction] 22.5 % 37-47 [facility] INR in Blood by Coagulation assayOrdered By: Selma Durham on 12-28-2021 INR Coag (Bld) [Relative time] 2.6 {INR} [facility] Laboratory - CoagulationOrde red By: Selma Durham on 12-28-2021 PT Coag (PPP) [Time] 27.1 s 11.7-14.9 [facility] Laboratory - Hematology and Cell countsOrdered By: Selma Durham on 12-28-2021 Erythrocyte distribution width (RBC) [Entitic vol] 63.3 fL 35.1-43.9 [facility] Erythrocyte distribution width (RBC) [Ratio] 19.9 % 11.6-14.6 [facility] Immature granulocytes/100 WBC (Bld) 0.300 % 0.0-0.9 [facility] Comment on above: IG% - Immature Granu locytes (promyelocytes, myelocytes and metamyelocytes) > 1% indicates that a LEFT SHIFT is Present. MCH (RBC) [Entitic mass] 27.3 pg 27.0-32.0 [facility] Nucleated RBC/100 WBC (Bld) [Ratio] 0 % 0-5 [facility] MCHC Auto (RBC) [Mass/Vol]Or dered By: Selma Durham on 12-28-2021 MCHC (RBC) [Mass/Vol] 31.6 g/dL 32-36 [facility] Platelets bldOrdered By: Hafsa Durham on 12-28-2021 Platelets (Bld) [#/Vol] 108 10*3/uL 150-450 [facility] Absolute lymphocyte countOrd ered By: Alejo Salcido on 12-27-2021 Lymphocytes Auto (Unsp spec) [#/Vol] 1.15 10*3/uL 0.83-4.51 [facility] Basophil percentageOrdered B y: Alejo Salcido on 12-27-2021 Basophils/100 WBC (Bld) 0.0 % 0-1 [facility] Eosinophils/100 WBC (Bld) 1.2 % 0-5 [facility] Neutrophils (Bld) [#/Vol] 0.8 10*3/uL 2.0-7.7 [facility] Neutrophils/100 WBC (Bld) 33.7 % 47-70 [facility] WBC (Bld) [#/Vol] 2.4 10*3/uL 4.4-11.0 [facility] Blood erythrocytes count (nu mber/volume)Ordered By: Alejo Salcido on 12-27-2021 RBC (Bld) [#/Vol] 2.55 10*6/uL 4.2-5.4 [facility] Blood hemoglobin measurement (mass/volume)Ordered By: Alejo Salcido on 12-27-2021 Hemoglobin (Bld) [Mass/Vol] 6.7 g/dL 12.0-15.0 [facility] Blood lymphocytes/100 leukoc ytesOrdered By: Alejo Salcido on 12-27-2021 Lymphocytes/100 WBC (Bld) 47.1 % 19-41 [facility] Blood manual differential co mment interpretation (narrative result)Ordered By: Alejo Salcido on 12-27-2021 Manual differential comment [place] (Bld) [Interp] See comment [facility] Comment on above: NEUTROPENIA Blood monocytes/100 leukocyt esOrdered By: Alejo Salcido on 12-27-2021 Monocytes/100 WBC (Bld) 18.0 % 0-10 [facility] Blood platelet adequacy dete ction by light microscopyOrdered By: Alejo Salcido on 12-27-2021 Platelets LM Ql (Bld) SLT DEC ADEQ [facility] Blood platelet mean volumeOr dered By: Alejo Salcido on 12-27-2021 Platelet mean volume (Bld) [Entitic vol] 10.5 fL 6.2-12.0 [facility] Determination of erythrocyte mean corpuscular volume (MCV)Ordered By: Alejo Salcido on 12-27-2021 MCV (RBC) [Entitic vol] 87.1 fL 81-99 [facility] Hematocrit Auto (Bld) [Volum e fraction]Ordered By: Alejo Salcido on 12-27-2021 Hematocrit (Bld) [Volume fraction] 22.2 % 37-47 [facility] Hypochromatic red blood cell detectionOrdered By: Alejo Salcido on 12-27-2021 Hypochromia Ql (Bld) 2+ [facility] INR in Blood by Coagulation assayOrdered By: Alejo Salcido on 12-27-2021 INR Coag (Bld) [Relative time] 3.0 {INR} [facility] Laboratory - CoagulationOrde red By: Alejo Salcido on 12-27-2021 PT Coag (PPP) [Time] 30.9 s 11.7-14.9 [facility] Laboratory - Hematology and Cell countsOrdered By: Alejo Salcido on 12-27-2021 Anisocytosis Ql (Bld) 1+ [facility] Erythrocyte distribution width (RBC) [Entitic vol] 63.0 fL 35.1-43.9 [facility] Erythrocyte distribution width (RBC) [Ratio] 19.7 % 11.6-14.6 [facility] Immature granulocytes/100 WBC (Bld) 0.000 % 0.0-0.9 [facility] Comment on above: IG% - Immature Granu locytes (promyelocytes, myelocytes and metamyelocytes) > 1% indicates that a LEFT SHIFT is Present. MCH (RBC) [Entitic mass] 26.3 pg 27.0-32.0 [facility] Nucleated RBC/100 WBC (Bld) [Ratio] 0 % 0-5 [facility] MCHC Auto (RBC) [Mass/Vol]Or dered By: Alejo Salcido on 12-27-2021 MCHC (RBC) [Mass/Vol] 30.2 g/dL 32-36 [facility] Platelets bldOrdered By: Levi Salcido on 12-27-2021 Platelets (Bld) [#/Vol] 104 10*3/uL 150-450 [facility] Absolute lymphocyte countOrd ered By: Alejo Salcido on 12-22-2021 Lymphocytes Auto (Unsp spec) [#/Vol] 0.98 10*3/uL 0.83-4.51 [facility] Basophil percentageOrdered B y: Alejo Salcido on 12-22-2021 Basophils/100 WBC (Bld) 0.3 % 0-1 [facility] Chloride [Moles/Vol] 110 mmol/L 98-107 [facility] Eosinophils/100 WBC (Bld) 0.3 % 0-5 [facility] Glucose [Mass/Vol] 111 mg/dL 74-106 [facility] Comment on above: Fasting Glucose resu lt from 100 to 125 mg/dL suggests IMPAIRED HOMEOSTASIS per A.D.A. criteria. Neutrophils (Bld) [#/Vol] 2.1 10*3/uL 2.0-7.7 [facility] Neutrophils/100 WBC (Bld) 54.4 % 47-70 [facility] Potassium [Moles/Vol] 3.8 mmol/L 3.5-5.1 [facility] Sodium [Moles/Vol] 140 mmol/L 136-145 [facility] WBC (Bld) [#/Vol] 3.9 10*3/uL 4.4-11.0 [facility] Blood erythrocytes count (nu mber/volume)Ordered By: Alejo Salcido on 12-22-2021 RBC (Bld) [#/Vol] 2.80 10*6/uL 4.2-5.4 [facility] Blood hemoglobin measurement (mass/volume)Ordered By: Alejo Salcido on 12-22-2021 Hemoglobin (Bld) [Mass/Vol] 7.5 g/dL 12.0-15.0 [facility] Blood lymphocytes/100 leukoc ytesOrdered By: Alejo Salcido on 12-22-2021 Lymphocytes/100 WBC (Bld) 25.3 % 19-41 [facility] Blood monocytes/100 leukocyt esOrdered By: Alejo Salcido on 12-22-2021 Monocytes/100 WBC (Bld) 19.4 % 0-10 [facility] Blood platelet mean volumeOr dered By: Alejo Salcido on 12-22-2021 Platelet mean volume (Bld) [Entitic vol] 10.4 fL 6.2-12.0 [facility] Determination of erythrocyte mean corpuscular volume (MCV)Ordered By: Alejo Salcido on 12-22-2021 MCV (RBC) [Entitic vol] 85.4 fL 81-99 [facility] Hematocrit Auto (Bld) [Volum e fraction]Ordered By: Alejo Salcido on 12-22-2021 Hematocrit (Bld) [Volume fraction] 23.9 % 37-47 [facility] Laboratory - Chemistry and C hemistry - challengeOrdered By: Alejo Salcido on 12-22-2021 CO2 [Moles/Vol] 24.0 mmol/L 21.0-32.0 [facility] Urea nitrogen/Creatinine [Mass ratio] 19.0 mg/mg 10-20 [facility] Laboratory - Hematology and Cell countsOrdered By: Alejo Salcido on 12-22-2021 Erythrocyte distribution width (RBC) [Entitic vol] 61.6 fL 35.1-43.9 [facility] Erythrocyte distribution width (RBC) [Ratio] 19.5 % 11.6-14.6 [facility] Immature granulocytes/100 WBC (Bld) 0.300 % 0.0-0.9 [facility] Comment on above: IG% - Immature Granu locytes (promyelocytes, myelocytes and metamyelocytes) > 1% indicates that a LEFT SHIFT is Present. MCH (RBC) [Entitic mass] 26.8 pg 27.0-32.0 [facility] Nucleated RBC/100 WBC (Bld) [Ratio] 0 % 0-5 [facility] MCHC Auto (RBC) [Mass/Vol]Or dered By: Alejo Salcido on 12-22-2021 MCHC (RBC) [Mass/Vol] 31.4 g/dL 32-36 [facility] No Panel InformationOrdered By: Alejo Salcido on 12-22-2021 Estimated GFR (MDRD) Amer 72 mL/min >60 [facility] Comment on above: GFR Calc Estimated GFR (MDRD) Non-Af Amer 60 mL/min >60 [facility] Comment on above: Non- GFR Calc Platelets bldOrdered By: Levi Salcido on 12-22-2021 Platelets (Bld) [#/Vol] 136 10*3/uL 150-450 [facility] Serum or plasma calcium yonatan urement (mass/volume)Ordered By: Alejo Salcido on 12-22-2021 Calcium [Mass/Vol] 8.2 mg/dL 8.5-10.1 [facility] Serum or plasma creatinine m easurement (mass/volume)Ordered By: Alejo Salcido on 12-22-2021 Creatinine [Mass/Vol] 0.95 mg/dL 0.55-1.02 [facility] Comment on above: The validity of the calculated GFR & GFRAA in patients over 70 years has not been determined. Clinical correlation is essential. Serum or plasma urea nitroge n measurement (mass/volume)Ordered By: Alejo Salcido on 12-22-2021 Urea nitrogen [Mass/Vol] 18 mg/dL 7-18 [facility] Thin prep Papanicolaou smear with manual screeningOrdered By: Alejo Salcido on 12-22-2021 Thin prep Papanicolaou smear with manual screening 6 5-15 [facility] Laboratory - CoagulationOrde red By: Alejo Salcido on 12-17-2021 INR Coag (Bld) [Relative time] 2.7 {INR} [facility] Comment on above: Critical Value > 4.0 Whole blood prothrombin time Ordered By: Alejo Salcido on 12-17-2021 PT Coag (Bld) [Time] 31.0 s 11.7-14.9 [facility] Laboratory - CoagulationOrde red By: Alejo Salcido on 12-10-2021 INR Coag (Bld) [Relative time] 2.4 {INR} [facility] Comment on above: Critical Value > 4.0 Whole blood prothrombin time Ordered By: Alejo Salcido on 12-10-2021 PT Coag (Bld) [Time] 28.1 s 11.7-14.9 [facility] Absolute lymphocyte countOrd ered By: Alejo Salcido on 12-03-2021 Lymphocytes Auto (Unsp spec) [#/Vol] 1.47 10*3/uL 0.83-4.51 [facility] Basophil percentageOrdered B y: Alejo Salcido on 12-03-2021 Basophils/100 WBC (Bld) 0.8 % 0-1 [facility] Bilirubin [Mass/Vol] 0.40 mg/dL 0.20-1.00 [facility] Comment on above: For patients on eltr ombopag therapy, use of Dim[facility] TBIL is not recommended. Chloride [Moles/Vol] 113 mmol/L 98-107 [facility] Eosinophils/100 WBC (Bld) 2.9 % 0-5 [facility] Glucose [Mass/Vol] 84 mg/dL 74-106 [facility] Neutrophils (Bld) [#/Vol] 2.5 10*3/uL 2.0-7.7 [facility] Neutrophils/100 WBC (Bld) 51.5 % 47-70 [facility] Potassium [Moles/Vol] 4.0 mmol/L 3.5-5.1 [facility] Protein [Mass/Vol] 7.4 g/dL 6.4-8.2 [facility] Sodium [Moles/Vol] 144 mmol/L 136-145 [facility] WBC (Bld) [#/Vol] 4.9 10*3/uL 4.4-11.0 [facility] Blood erythrocytes count (nu mber/volume)Ordered By: Alejo Salcido on 12-03-2021 RBC (Bld) [#/Vol] 3.31 10*6/uL 4.2-5.4 [facility] Blood hemoglobin measurement (mass/volume)Ordered By: Alejo Salcido on 12-03-2021 Hemoglobin (Bld) [Mass/Vol] 8.6 g/dL 12.0-15.0 [facility] Blood lymphocytes/100 leukoc ytesOrdered By: Alejo Salcido on 12-03-2021 Lymphocytes/100 WBC (Bld) 29.9 % 19-41 [facility] Blood monocytes/100 leukocyt esOrdered By: Alejo Salcido on 12-03-2021 Monocytes/100 WBC (Bld) 14.7 % 0-10 [facility] Blood platelet mean volumeOr dered By: Alejo Salcido on 12-03-2021 Platelet mean volume (Bld) [Entitic vol] 10.1 fL 6.2-12.0 [facility] Determination of erythrocyte mean corpuscular volume (MCV)Ordered By: Alejo Salcido on 12-03-2021 MCV (RBC) [Entitic vol] 87.9 fL 81-99 [facility] Hematocrit Auto (Bld) [Volum e fraction]Ordered By: Alejo Salcido on 12-03-2021 Hematocrit (Bld) [Volume fraction] 29.1 % 37-47 [facility] INR in Blood by Coagulation assayOrdered By: Alejo Salcido on 12-03-2021 INR Coag (Bld) [Relative time] 2.4 {INR} [facility] Laboratory - Chemistry and C hemistry - challengeOrdered By: Alejo Salcido on 12-03-2021 ALP [Catalytic activity/Vol] 85 U/L 45-117 [facility] ALT [Catalytic activity/Vol] 22 U/L 13-56 [facility] CO2 [Moles/Vol] 25.0 mmol/L 21.0-32.0 [facility] Globulin (S) [Mass/Vol] 4.8 g/dL 2.2-4.2 [facility] Urea nitrogen/Creatinine [Mass ratio] 20.7 mg/mg 10-20 [facility] Laboratory - CoagulationOrde red By: Alejo Salcido on 12-03-2021 PT Coag (PPP) [Time] 25.8 s 11.7-14.9 [facility] Laboratory - Hematology and Cell countsOrdered By: Alejo Salcido on 12-03-2021 Erythrocyte distribution width (RBC) [Entitic vol] 62.5 fL 35.1-43.9 [facility] Erythrocyte distribution width (RBC) [Ratio] 19.6 % 11.6-14.6 [facility] Immature granulocytes/100 WBC (Bld) 0.200 % 0.0-0.9 [facility] Comment on above: IG% - Immature Granu locytes (promyelocytes, myelocytes and metamyelocytes) > 1% indicates that a LEFT SHIFT is Present. MCH (RBC) [Entitic mass] 26.0 pg 27.0-32.0 [facility] Nucleated RBC/100 WBC (Bld) [Ratio] 0 % 0-5 [facility] MCHC Auto (RBC) [Mass/Vol]Or dered By: Alejo Salcido on 12-03-2021 MCHC (RBC) [Mass/Vol] 29.6 g/dL 32-36 [facility] No Panel InformationOrdered By: Alejo Salcido on 12-03-2021 Estimated GFR (MDRD) Amer 106 mL/min >60 [facility] Comment on above: GFR Calc Estimated GFR (MDRD) Non-Af Amer 88 mL/min >60 [facility] Comment on above: Non- GFR Calc Platelets bldOrdered By: Levi Salcido on 12-03-2021 Platelets (Bld) [#/Vol] 173 10*3/uL 150-450 [facility] Serum or plasma albumin yonatan urement (mass/volume)Ordered By: Alejo Salcido on 12-03-2021 Albumin [Mass/Vol] 2.6 g/dL 3.2-5.0 [facility] Serum or plasma albumin/glob ulin mass ratioOrdered By: Alejo Salcido on 12-03-2021 Albumin/Globulin [Mass ratio] 0.5 {ratio} 0.9-2.4 [facility] Serum or plasma calcium yonatan urement (mass/volume)Ordered By: Alejo Salcido on 12-03-2021 Calcium [Mass/Vol] 9.3 mg/dL 8.5-10.1 [facility] Serum or plasma creatinine m easurement (mass/volume)Ordered By: Alejo Salcido on 12-03-2021 Creatinine [Mass/Vol] 0.68 mg/dL 0.55-1.02 [facility] Comment on above: The validity of the calculated GFR & GFRAA in patients over 70 years has not been determined. Clinical correlation is essential. Serum or plasma urea nitroge n measurement (mass/volume)Ordered By: Alejo Salcido on 12-03-2021 Urea nitrogen [Mass/Vol] 14 mg/dL 7-18 [facility] Thin prep Papanicolaou smear with manual screeningOrdered By: Alejo Salcido on 12-03-2021 Thin prep Papanicolaou smear with manual screening 24 U/L 15-37 [facility] Thin prep Papanicolaou smear with manual screening 6 5-15 [facility] Laboratory - Coagulationon 0 11-26-2021 INR Coag (Bld) [Relative time] 1.1 {INR} [facility] Work Phone: Comment on above: Critical Value > 4.0 Whole blood prothrombin time on 11-26-2021 PT Coag (Bld) [Time] 13.7 s 11.7-14.9 [facility] Work Phone: Absolute lymphocyte counton 11-20-2021 Lymphocytes Auto (Unsp spec) [#/Vol] 1.35 10*3/uL 0.83-4.51 [facility] Work Phone: Basophil percentageon 2021 Basophils/100 WBC (Bld) 0.8 % 0-1 [facility] Work Phone: Eosinophils/100 WBC (Bld) 1.7 % 0-5 [facility] Work Phone: Neutrophils (Bld) [#/Vol] 3.1 10*3/uL 2.0-7.7 [facility] Work Phone: Neutrophils/100 WBC (Bld) 59.8 % 47-70 [facility] Work Phone: WBC (Bld) [#/Vol] 5.2 10*3/uL 4.4-11.0 [facility]: Blood erythrocytes count (nu mber/volume)on 11-20-2021 RBC (Bld) [#/Vol] 3.20 10*6/uL 4.2-5.4 [facility]: Blood hemoglobin measurement (mass/volume)on 11-20-2021 Hemoglobin (Bld) [Mass/Vol] 8.5 g/dL 12.0-15.0 [facility] Work Phone: Blood lymphocytes/100 leukoc yteson 11-20-2021 Lymphocytes/100 WBC (Bld) 26.0 % 19-41 [facility] Work Phone: Blood monocytes/100 leukocyt eson 11-20-2021 Monocytes/100 WBC (Bld) 11.5 % 0-10 [facility] Work Phone: Blood platelet mean volumeon 11-20-2021 Platelet mean volume (Bld) [Entitic vol] 9.8 fL 6.2-12.0 [facility] Work Phone: Determination of erythrocyte mean corpuscular volume (MCV)on 11-20-2021 MCV (RBC) [Entitic vol] 88.1 fL 81-99 [facility] Work Phone: Hematocrit Auto (Bld) [Volum e fraction]on 11-20-2021 Hematocrit (Bld) [Volume fraction] 28.2 % 37-47 [facility] Work Phone: Laboratory - Hematology and Cell countson 11-20-2021 Erythrocyte distribution width (RBC) [Entitic vol] 63.0 fL 35.1-43.9 [facility] Work Phone: Erythrocyte distribution width (RBC) [Ratio] 19.5 % 11.6-14.6 [facility] Work Phone: Immature granulocytes/100 WBC (Bld) 0.200 % 0.0-0.9 [facility] Work Phone: [phone] Comment on above: IG% - Immature Granu locytes (promyelocytes, myelocytes and metamyelocytes) > 1% indicates that a LEFT SHIFT is Present. MCH (RBC) [Entitic mass] 26.6 pg 27.0-32.0 [facility] Work Phone: Nucleated RBC/100 WBC (Bld) [Ratio] 0 % 0-5 [facility] Work Phone: MCHC Auto (RBC) [Mass/Vol]on 11-20-2021 MCHC (RBC) [Mass/Vol] 30.1 g/dL 32-36 [facility] Work Phone: Platelets bldon 11-20-2021 Platelets (Bld) [#/Vol] 184 10*3/uL 150-450 [facility] Work Phone: Absolute lymphocyte counton 10-29-2021 Lymphocytes Auto (Unsp spec) [#/Vol] 1.41 10*3/uL 0.83-4.51 [facility] Work Phone: Basophil percentageon 2021 Basophils/100 WBC (Bld) 0.6 % 0-1 [facility] Work Phone: Bilirubin [Mass/Vol] 0.50 mg/dL 0.20-1.00 [facility] Work Phone: Comment on above: For patients on eltr ombopag therapy, use of Dimension [facility] TBIL is not recommended. Chloride [Moles/Vol] 112 mmol/L 98-107 [facility] Work Phone: Eosinophils/100 WBC (Bld) 2.5 % 0-5 [facility] Work Phone: Glucose [Mass/Vol] 82 mg/dL 74-106 [facility] Work Phone: Neutrophils (Bld) [#/Vol] 2.5 10*3/uL 2.0-7.7 [facility] Work Phone: Neutrophils/100 WBC (Bld) 52.7 % 47-70 [facility] Work Phone: Potassium [Moles/Vol] 3.9 mmol/L 3.5-5.1 [facility] Work Phone: Protein [Mass/Vol] 7.0 g/dL 6.4-8.2 [facility] Work Phone: Sodium [Moles/Vol] 144 mmol/L 136-145 [facility] Work Phone: WBC (Bld) [#/Vol] 4.8 10*3/uL 4.4-11.0 [facility] Work Phone: Blood erythrocytes count (nu mber/volume)on 10-29-2021 RBC (Bld) [#/Vol] 3.13 10*6/uL 4.2-5.4 [facility] Work Phone: Blood hemoglobin measurement (mass/volume)on 10-29-2021 Hemoglobin (Bld) [Mass/Vol] 8.5 g/dL 12.0-15.0 [facility] Work Phone: Blood lymphocytes/100 leukoc yteson 10-29-2021 Lymphocytes/100 WBC (Bld) 29.7 % 19-41 [facility] Work Phone: Blood monocytes/100 leukocyt eson 10-29-2021 Monocytes/100 WBC (Bld) 14.5 % 0-10 [facility] Work Phone: Blood platelet mean volumeon 10-29-2021 Platelet mean volume (Bld) [Entitic vol] 10.4 fL 6.2-12.0 [facility] Work Phone: Determination of erythrocyte mean corpuscular volume (MCV)on 10-29-2021 MCV (RBC) [Entitic vol] 86.6 fL 81-99 [facility] Work Phone: [phone] Hematocrit Auto (Bld) [Volum e fraction]on 10-29-2021 Hematocrit (Bld) [Volume fraction] 27.1 % 37-47 [facility] Work Phone: [phone] Laboratory - Chemistry and C hemistry - challengeon 10-29-2021 ALP [Catalytic activity/Vol] 77 U/L 45-117 [facility] Work Phone: ALT [Catalytic activity/Vol] 23 U/L 13-56 [facility] Work Phone: [phone] CO2 [Moles/Vol] 24.0 mmol/L 21.0-32.0 [facility] Work Phone: [phone] Globulin (S) [Mass/Vol] 4.4 g/dL 2.2-4.2 [facility] Work Phone: [phone] Urea nitrogen/Creatinine [Mass ratio] 23.5 mg/mg 10-20 [facility] Work Phone: [phone] Laboratory - Hematology and Cell countson 10-29-2021 Erythrocyte distribution width (RBC) [Entitic vol] 55.9 fL 35.1-43.9 [facility] Work Phone: [phone] Erythrocyte distribution width (RBC) [Ratio] 18.0 % 11.6-14.6 [facility] Work Phone: [phone] Immature granulocytes/100 WBC (Bld) 0.000 % 0.0-0.9 [facility] Work Phone: [phone] Comment on above: IG% - Immature Granu locytes (promyelocytes, myelocytes and metamyelocytes) > 1% indicates that a LEFT SHIFT is Present. MCH (RBC) [Entitic mass] 27.2 pg 27.0-32.0 [facility] Work Phone: [phone] Nucleated RBC/100 WBC (Bld) [Ratio] 0 % 0-5 [facility] Work Phone: MCHC Auto (RBC) [Mass/Vol]on 10-29-2021 MCHC (RBC) [Mass/Vol] 31.4 g/dL 32-36 [facility] Work Phone: No Panel Informationon 10-29 Estimated GFR (MDRD) Amer 92 mL/min >60 [facility] Work Phone: Comment on above: GFR Calc Estimated GFR (MDRD) Non-Af Amer 76 mL/min >60 [facility] Work Phone: Comment on above: Non- GFR Calc Thyroid Stimulating Hormone (TSH) 1.37 uIU/mL 0.358-3.74 [facility] Work Phone: Platelets bldon 10-29-2021 Platelets (Bld) [#/Vol] 164 10*3/uL 150-450 [facility] Work Phone: Serum or plasma albumin yonatan urement (mass/volume)on 10-29-2021 Albumin [Mass/Vol] 2.6 g/dL 3.2-5.0 [facility] Work Phone: Serum or plasma albumin/glob ulin mass ratioon 10-29-2021 Albumin/Globulin [Mass ratio] 0.6 {ratio} 0.9-2.4 [facility] Work Phone: Serum or plasma calcium yonatan urement (mass/volume)on 10-29-2021 Calcium [Mass/Vol] 9.2 mg/dL 8.5-10.1 [facility] Work Phone: Serum or plasma creatinine m easurement (mass/volume)on 10-29-2021 Creatinine [Mass/Vol] 0.77 mg/dL 0.55-1.02 [facility] Work Phone: Comment on above: The validity of the calculated GFR & GFRAA in patients over 70 years has not been determined. Clinical correlation is essential. Serum or plasma urea nitroge n measurement (mass/volume)on 10-29-2021 Urea nitrogen [Mass/Vol] 18 mg/dL 7-18 [facility] Work Phone: Thin prep Papanicolaou smear with manual screeningon 10-29-2021 Thin prep Papanicolaou smear with manual screening 27 U/L 15-37 [facility] Work Phone: Thin prep Papanicolaou smear with manual screening 8 5-15 [facility] Work Phone: Absolute lymphocyte counton 10-18-2021 Lymphocytes Auto (Unsp spec) [#/Vol] 1.43 10*3/uL 0.83-4.51 [facility] Work Phone: Basophil percentageon 2021 Basophil percentage 0 SEEN /hpf 0-5 [facility] Work Phone: Basophils/100 WBC (Bld) 0.4 % 0-1 [facility] Work Phone: Chloride [Moles/Vol] 111 mmol/L 98-107 [facility] Work Phone: Eosinophils/100 WBC (Bld) 1.4 % 0-5 [facility] Work Phone: Glucose [Mass/Vol] 113 mg/dL 74-106 [facility] Work Phone: Comment on above: Fasting Glucose resu lt from 100 to 125 mg/dL suggests IMPAIRED HOMEOSTASIS per A.D.A. criteria. Neutrophils (Bld) [#/Vol] 3.2 10*3/uL 2.0-7.7 [facility] Work Phone: Neutrophils/100 WBC (Bld) 57.4 % 47-70 [facility] Work Phone: Potassium [Moles/Vol] 3.9 mmol/L 3.5-5.1 [facility] Work Phone: Sodium [Moles/Vol] 140 mmol/L 136-145 [facility] Work Phone: WBC (Bld) [#/Vol] 5.5 10*3/uL 4.4-11.0 [facility] Work Phone: [phone] Bilirubin Test strip Ql (U)o n 10-18-2021 Bilirubin Ql (U) Negative Negative [facility] Work Phone: [phone] Blood erythrocytes count (nu mber/volume)on 10-18-2021 RBC (Bld) [#/Vol] 2.39 10*6/uL 4.2-5.4 [facility] Work Phone: [phone] Blood hemoglobin measurement (mass/volume)on 10-18-2021 Hemoglobin (Bld) [Mass/Vol] 6.2 g/dL 12.0-15.0 [facility] Work Phone: Blood lymphocytes/100 leukoc yteson 10-18-2021 Lymphocytes/100 WBC (Bld) 25.9 % 19-41 [facility] Work Phone: Blood monocytes/100 leukocyt eson 10-18-2021 Monocytes/100 WBC (Bld) 14.5 % 0-10 [facility] Work Phone: Blood platelet mean volumeon 10-18-2021 Platelet mean volume (Bld) [Entitic vol] 8.9 fL 6.2-12.0 [facility] Work Phone: [phone] Determination of erythrocyte mean corpuscular volume (MCV)on 10-18-2021 MCV (RBC) [Entitic vol] 84.5 fL 81-99 [facility] Work Phone: Hematocrit Auto (Bld) [Volum e fraction]on 10-18-2021 Hematocrit (Bld) [Volume fraction] 20.2 % 37-47 [facility] Work Phone: [phone] INR in Blood by Coagulation assayon 10-18-2021 INR Coag (Bld) [Relative time] 1.7 {INR} [facility] Work Phone: [phone] Iron measurement (mass/mass) on 10-18-2021 Iron (Unsp spec) [Mass/Mass] 25 ug/dL 50-170 [facility] Work Phone: [phone] Ketones Test strip Ql (U)on 10-18-2021 Ketones Ql (U) Negative Negative [facility] Work Phone: Laboratory - Chemistry and C hemistry - challengeon 10-18-2021 CO2 [Moles/Vol] 25.0 mmol/L 21.0-32.0 [facility] Work Phone: Urea nitrogen/Creatinine [Mass ratio] 23.5 mg/mg 10-20 [facility] Work Phone: Laboratory - Coagulationon 0 10-18-2021 PT Coag (PPP) [Time] 19.9 s 11.7-14.9 [facility] Work Phone: Laboratory - Hematology and Cell countson 10-18-2021 Erythrocyte distribution width (RBC) [Entitic vol] 53.0 fL 35.1-43.9 [facility] Work Phone: [phone] Erythrocyte distribution width (RBC) [Ratio] 17.2 % 11.6-14.6 [facility] Work Phone: [phone] Immature granulocytes/100 WBC (Bld) 0.400 % 0.0-0.9 [facility] Work Phone: Comment on above: IG% - Immature Granu locytes (promyelocytes, myelocytes and metamyelocytes) > 1% indicates that a LEFT SHIFT is Present. MCH (RBC) [Entitic mass] 25.9 pg 27.0-32.0 [facility] Work Phone: [phone] Nucleated RBC/100 WBC (Bld) [Ratio] 0 % 0-5 [facility] Work Phone: [phone] MCHC Auto (RBC) [Mass/Vol]on 10-18-2021 MCHC (RBC) [Mass/Vol] 30.7 g/dL 32-36 [facility] Work Phone: Mucus LM Ql (Urine sed)on Mucus Ql (Urine sed) 0 SEEN /hpf [facility] Work Phone: [phone] Nitrite Test strip Ql (U)on 10-18-2021 Nitrite Ql (U) Negative Negative [facility] Work Phone: No Panel Informationon 10-18 Estimated Creatinine Clearance Calc 38.50 ml/min [facility] Work Phone: Estimated GFR (MDRD) Amer 99 mL/min >60 [facility] Work Phone: Comment on above: GFR Calc Estimated GFR (MDRD) Non-Af Amer 82 mL/min >60 [facility] Work Phone: Comment on above: Non- GFR Calc Total Iron Binding Capacity 371 ug/dL 250-450 [facility] Work Phone: Platelets bldon 10-18-2021 Platelets (Bld) [#/Vol] 140 10*3/uL 150-450 [facility] Work Phone: Protein Test strip Ql (U)on 10-18-2021 Protein Ql (U) Negative Negative [facility] Work Phone: Serum or plasma calcium yonatan urement (mass/volume)on 10-18-2021 Calcium [Mass/Vol] 8.1 mg/dL 8.5-10.1 [facility] Work Phone: Serum or plasma creatinine m easurement (mass/volume)on 10-18-2021 Creatinine [Mass/Vol] 0.72 mg/dL 0.55-1.02 [facility] Work Phone: Comment on above: The validity of the calculated GFR & GFRAA in patients over 70 years has not been determined. Clinical correlation is essential. Serum or plasma ferritin shania surement (mass/volume)on 10-18-2021 Ferritin [Mass/Vol] 10 ng/mL 8-252 [facility] Work Phone: Serum or plasma iron saturat ion measurement (mass fraction)on 10-18-2021 Iron saturation [Mass fraction] 6.7 % 15.0-55.0 [facility] Work Phone: Serum or plasma urea nitroge n measurement (mass/volume)on 10-18-2021 Urea nitrogen [Mass/Vol] 17 mg/dL 7-18 [facility] Work Phone: Squamous epithelial cells de tection in urine sediment by light microscopyon 10-18-2021 Epithelial cells.squamous LM Ql (Urine sed) 0 SEEN /hpf 5-10 [facility] Work Phone: [phone] Thin prep Papanicolaou smear with manual screeningon 10-18-2021 Thin prep Papanicolaou smear with manual screening 4 5-15 [facility] Work Phone: [phone] Urine blood detectionon -0 RBC Ql (U) Negative Negative [facility] Work Phone: [phone] RBC Ql (U) 0 SEEN /hpf 0-5 [facility] Work Phone: Urine clarityon 10-18-2021 Clarity (U) Clear Clear [facility] Work Phone: Urine color determinationon 10-18-2021 Color (U) Yellow Yellow [facility] Work Phone: [phone] Urine glucose detectionon Glucose Ql (U) Normal mg/dl Normal [facility] Work Phone: [phone] Urine leukocyte esterase det ection by dipstickon 10-18-2021 Leukocyte esterase Test strip Ql (U) 100 /ul Negative [facility] Work Phone: [phone] Urine pHon 10-18-2021 pH (U) 6.5 [pH] 5.0 - 8.0 [facility] Work Phone: Urine sediment bacteria coun t by microscopy (number/high power field)on 10-18-2021 Bacteria LM.HPF (Urine sed) [#/Area] 0 /[HPF] None Seen [facility] Work Phone: [phone] Urine specific gravity measu rementon 10-18-2021 Specific gravity (U) [Rel density] 1.005 1.002-1.030 [facility] Work Phone: [phone] Urobilinogen Auto test strip Ql (U)on 10-18-2021 Urobilinogen Ql (U) Normal mg/dl Normal [facility] Work Phone: CBC W Auto Differential pane l (Bld)on 10-16-2021 Abs Immature Gran <0.03 <0.10 k/uL [facility] Basophils (Bld) [#/Vol] 0.04 10*3/uL <0.11 k/uL [facility] Basophils/100 WBC (Bld) 0.8 % [facility] Differential cell count method Nom (Bld) Auto [facility] Eosinophils (Bld) [#/Vol] 0.07 10*3/uL <0.46 k/uL [facility] Eosinophils/100 WBC (Bld) 1.3 % [facility] Erythrocyte distribution width (RBC) [Ratio] 17.0 % High 11.5 - 15.0 % [facility] Hematocrit (Bld) [Volume fraction] 21.0 % Low 36.0 - 46.0 % [facility] Hemoglobin (Bld) [Mass/Vol] 6.5 g/dL Low 11.5 - 15.5 g/dL [facility] Immature Gran % 0.4 % [facility] Lymphocytes (Bld) [#/Vol] 1.10 10*3/uL 1.00 - 4.00 k/uL [facility] Lymphocytes/100 WBC (Bld) 21.2 % [facility] MCH (RBC) [Entitic mass] 25.6 pg Low 26.0 - 34.0 pg [facility] MCHC (RBC) [Mass/Vol] 31.0 g/dL 30.5 - 36.0 g/dL [facility] MCV (RBC) [Entitic vol] 82.7 fL 80.0 - 100.0 fL [facility] Monocytes (Bld) [#/Vol] 0.61 10*3/uL <0.87 k/uL [facility] Monocytes/100 WBC (Bld) 11.7 % [facility] Neutrophils (Bld) [#/Vol] 3.36 10*3/uL 1.45 - 7.50 k/uL [facility] Neutrophils/100 WBC (Bld) 64.6 % [facility] Nucleated RBC (Bld) [#/Vol] 10*3/uL <0.01 k/uL [facility] Nucleated RBC/100 WBC (Bld) [Ratio] 0.0 /100 WBC [facility] Platelet mean volume (Bld) [Entitic vol] 9.1 fL 9.0 - 12.7 fL [facility] Platelets (Bld) [#/Vol] 164 10*3/uL 150 - 400 k/uL [facility] RBC (Bld) [#/Vol] 2.54 10*6/uL Low 3.90 - 5.2 0 m/uL [facility] WBC (Bld) [#/Vol] 5.20 10*3/uL 3.70 - 11.00 k/uL [facility] INR FINGERSTICK B/Oon 2021 INR Coag (Bld) [Relative time] 2.1 (biotel) [facility] Quality Check No [facility] INR FINGERSTICK B/Oon 2021 INR Coag (Bld) [Relative time] 4.8 {INR} [facility] CNOVon 09-26-2021 CNOV Office Visit (CRISTINE ) CHRISTIAN LANDRUM ([id number]) 1935 F Date Time Provider Department 09/26/21 [...] UTIs, used to see Dr. Burris at [facility]. Prior colovesical fistula, s/p sigmoid [...] >=60 mL/min/1.73m? 79 Medical and Symptom History: [employer] HISTORY: Last Pap: Date:04/18/20 NIL; Last Mammogram: [...] BX FO (more content not included)... Normal [facility] UA DIP, URINE (POC)on 2021 BILIRUBIN UA (POCT) Negative Negative [facility] CLARITY UA (POCT) Clear [facility] COLOR UA (POCT) Yellow [facility] GLUCOSE UA (POCT) Negative Negative mg/dL [facility] HEMOGLOBIN/BLOOD UA (POCT) Negative Negative [facility] KETONE UA (POCT) Negative Negative mg/dL [facility] LEUKOCYTES UA (POCT) Negative Negative [facility] NITRITE UA (POCT) Negative Negative [facility] PH UA (POCT) 6.5 4.5 - 8.0 [facility] Protein Ql (U) Negative Negative mg/dL [facility] SPECIFIC GRAVITY UA (POCT) 1.010 1.005 - 1.030 [facility] UROBILINOGEN UA (POCT) 0.2 E.U./dL Winifred l E.U./dL [facility] UA DIP, URINE (POC)on 2021 BILIRUBIN UA (POCT) Negative Negative [facility] CLARITY UA (POCT) Cloudy [facility] COLOR UA (POCT) Yellow [facility] GLUCOSE UA (POCT) Negative Negative mg/dL [facility] HEMOGLOBIN/BLOOD UA (POCT) Trace-intact Abnormal Negative [facility] KETONE UA (POCT) Negative Negative mg/dL [facility] LEUKOCYTES UA (POCT) Large Abnormal Negative [facility] NITRITE UA (POCT) Negative Negative [facility] PH UA (POCT) 6.0 4.5 - 8.0 [facility] Protein Ql (U) Negative Negative mg/dL [facility] SPECIFIC GRAVITY UA (POCT) 1.015 1.005 - 1.030 [facility] UROBILINOGEN UA (POCT) 0.2 E.U./dL Winifred l E.U./dL [facility] Absolute lymphocyte counton 08-26-2021 Lymphocytes Auto (Unsp spec) [#/Vol] 1.15 10*3/uL 0.83-4.51 [facility] Work Phone: Basophil percentageon 2021 Basophils/100 WBC (Bld) 0.4 % 0-1 [facility] Work Phone: Chloride [Moles/Vol] 109 mmol/L 98-107 [facility] Work Phone: Eosinophils/100 WBC (Bld) 1.9 % 0-5 [facility] Work Phone: Glucose [Mass/Vol] 111 mg/dL 74-106 [facility] Work Phone: [phone] Comment on above: Fasting Glucose resu lt from 100 to 125 mg/dL suggests IMPAIRED HOMEOSTASIS per A.D.A. criteria. Neutrophils (Bld) [#/Vol] 3.3 10*3/uL 2.0-7.7 [facility] Work Phone: [phone] Neutrophils/100 WBC (Bld) 61.2 % 47-70 [facility] Work Phone: [phone] Potassium [Moles/Vol] 4.1 mmol/L 3.5-5.1 [facility] Work Phone: [phone] Sodium [Moles/Vol] 140 mmol/L 136-145 [facility] Work Phone: [phone] WBC (Bld) [#/Vol] 5.3 10*3/uL 4.4-11.0 [facility] Work Phone: [phone] Blood erythrocytes count (nu mber/volume)on 08-26-2021 RBC (Bld) [#/Vol] 2.86 10*6/uL 4.2-5.4 [facility] Work Phone: [phone] Blood hemoglobin measurement (mass/volume)on 08-26-2021 Hemoglobin (Bld) [Mass/Vol] 8.0 g/dL 12.0-15.0 [facility] Work Phone: Blood lymphocytes/100 leukoc yteson 08-26-2021 Lymphocytes/100 WBC (Bld) 21.5 % 19-41 [facility] Work Phone: Blood monocytes/100 leukocyt eson 08-26-2021 Monocytes/100 WBC (Bld) 14.6 % 0-10 [facility] Work Phone: Blood platelet mean volumeon 08-26-2021 Platelet mean volume (Bld) [Entitic vol] 9.3 fL 6.2-12.0 [facility] Work Phone: [phone] Determination of erythrocyte mean corpuscular volume (MCV)on 08-26-2021 MCV (RBC) [Entitic vol] 90.2 fL 81-99 [facility] Work Phone: [phone] Hematocrit Auto (Bld) [Volum e fraction]on 08-26-2021 Hematocrit (Bld) [Volume fraction] 25.8 % 37-47 [facility] Work Phone: [phone] INR in Blood by Coagulation assayon 08-26-2021 INR Coag (Bld) [Relative time] 2.9 {INR} [facility] Work Phone: [phone] Laboratory - Chemistry and C hemistry - challengeon 08-26-2021 CO2 [Moles/Vol] 28.0 mmol/L 21.0-32.0 [facility] Work Phone: [phone] Urea nitrogen/Creatinine [Mass ratio] 15.6 mg/mg 10-20 [facility] Work Phone: [phone] Laboratory - Coagulationon 0 08-26-2021 PT Coag (PPP) [Time] 29.6 s 11.7-14.9 [facility] Work Phone: [phone] Laboratory - Hematology and Cell countson 08-26-2021 Erythrocyte distribution width (RBC) [Entitic vol] 56.8 fL 35.1-43.9 [facility] Work Phone: [phone] Erythrocyte distribution width (RBC) [Ratio] 17.1 % 11.6-14.6 [facility] Work Phone: [phone] Immature granulocytes/100 WBC (Bld) 0.400 % 0.0-0.9 [facility] Work Phone: [phone] Comment on above: IG% - Immature Granu locytes (promyelocytes, myelocytes and metamyelocytes) > 1% indicates that a LEFT SHIFT is Present. MCH (RBC) [Entitic mass] 28.0 pg 27.0-32.0 [facility] Work Phone: [phone] Nucleated RBC/100 WBC (Bld) [Ratio] 0 % 0-5 [facility] Work Phone: [phone] MCHC Auto (RBC) [Mass/Vol]on 08-26-2021 MCHC (RBC) [Mass/Vol] 31.0 g/dL 32-36 [facility] Work Phone: No Panel Informationon 08-26 Estimated Creatinine Clearance Calc 38.50 ml/min [facility] Work Phone: Estimated GFR (MDRD) Amer 92 mL/min >60 [facility] Work Phone: Comment on above: GFR Calc Estimated GFR (MDRD) Non-Af Amer 76 mL/min >60 [facility] Work Phone: Comment on above: Non- GFR Calc Platelets bldon 08-26-2021 Platelets (Bld) [#/Vol] 155 10*3/uL 150-450 [facility] Work Phone: Serum or plasma calcium yonatan urement (mass/volume)on 08-26-2021 Calcium [Mass/Vol] 8.7 mg/dL 8.5-10.1 [facility] Work Phone: Serum or plasma creatinine m easurement (mass/volume)on 08-26-2021 Creatinine [Mass/Vol] 0.77 mg/dL 0.55-1.02 [facility] Work Phone: Comment on above: The validity of the calculated GFR & GFRAA in patients over 70 years has not been determined. Clinical correlation is essential. Serum or plasma urea nitroge n measurement (mass/volume)on 08-26-2021 Urea nitrogen [Mass/Vol] 12 mg/dL 7-18 [facility] Work Phone: Thin prep Papanicolaou smear with manual screeningon 08-26-2021 Thin prep Papanicolaou smear with manual screening 3 5-15 [facility] Work Phone: Basophil percentageon 2021 WBC (Bld) [#/Vol] 6.6 10*3/uL 4.4-11.0 [facility] Work Phone: Blood erythrocytes count (nu mber/volume)on 08-23-2021 RBC (Bld) [#/Vol] 2.94 10*6/uL 4.2-5.4 [facility] Work Phone: [phone] Blood hemoglobin measurement (mass/volume)on 08-23-2021 Hemoglobin (Bld) [Mass/Vol] 8.2 g/dL 12.0-15.0 [facility] Work Phone: [phone] Blood platelet mean volumeon 08-23-2021 Platelet mean volume (Bld) [Entitic vol] 9.3 fL 6.2-12.0 [facility] Work Phone: [phone] Determination of erythrocyte mean corpuscular volume (MCV)on 08-23-2021 MCV (RBC) [Entitic vol] 89.8 fL 81-99 [facility] Work Phone: [phone] Hematocrit Auto (Bld) [Volum e fraction]on 08-23-2021 Hematocrit (Bld) [Volume fraction] 26.4 % 37-47 [facility] Work Phone: INR in Blood by Coagulation assayon 08-23-2021 INR Coag (Bld) [Relative time] 2.8 {INR} [facility] Work Phone: Laboratory - Coagulationon 0 08-23-2021 aPTT Coag (Bld) [Time] 46.5 s 24.1-36.2 [facility] Work Phone: PT Coag (PPP) [Time] 28.8 s 11.7-14.9 [facility] Work Phone: Laboratory - Hematology and Cell countson 08-23-2021 Erythrocyte distribution width (RBC) [Entitic vol] 56.3 fL 35.1-43.9 [facility] Work Phone: Erythrocyte distribution width (RBC) [Ratio] 17.0 % 11.6-14.6 [facility] Work Phone: MCH (RBC) [Entitic mass] 27.9 pg 27.0-32.0 [facility] Work Phone: [phone] MCHC Auto (RBC) [Mass/Vol]on 08-23-2021 MCHC (RBC) [Mass/Vol] 31.1 g/dL 32-36 [facility] Work Phone: Platelets bldon 08-23-2021 Platelets (Bld) [#/Vol] 160 10*3/uL 150-450 [facility] Work Phone: CBC panel Auto (Bld)on 08-13 Erythrocyte distribution width (RBC) [Ratio] 16.9 % High 11.5-15.0 [facility] Comment on above: Order Comment: Speci men Type: BLOOD SPECIMENOrdering Facility: [facility] Address: [address] [place] [address] Performed By: #### 5 8410-2 ####[facility]ORATORYCLIA [id number] [address] [place] Hematocrit (Bld) [Volume fraction] 25.6 % Low 36.0-46.0 [facility] Comment on above: Order Comment: Speci men Type: BLOOD SPECIMENOrdering Facility: [facility] Address: [address] [place] [address] Performed By: #### 5 8410-2 ####[facility] LABORATORYCLIA [id number] [place] [address] [place] Hemoglobin (Bld) [Mass/Vol] 8.2 g/dL Low 11.5-15.5 [facility] Comment on above: Order Comment: Speci men Type: BLOOD SPECIMENOrdering Facility: [facility] Address: [address] [place] [address] Performed By: #### 5 8410-2 ####[facility] LABORATORYCLIA [id number] [address] [place] MCH (RBC) [Entitic mass] 28.4 pg Normal 26.0-34.0 [facility] Comment on above: Order Comment: Speci men Type: BLOOD SPECIMENOrdering Facility: [facility] Address: [address] [place] [address] Performed By: #### 5 8410-2 ####[facility] LABORATORYCLIA [id number] [address] MCHC (RBC) [Mass/Vol] 32.0 g/dL Normal 30.5-36.0 [facility] Comment on above: Order Comment: Speci men Type: BLOOD SPECIMENOrdering Facility: [facility] Address: [address] [place] [address] Performed By: #### 5 8410-2 ####[facility] LABORATORYCLIA [id number] [address] [place] MCV (RBC) [Entitic vol] 88.6 fL Normal 80.0-100.0 [facility] Comment on above: Order Comment: Speci men Type: BLOOD SPECIMENOrdering Facility: [facility] Address: [address] [place] [address] Performed By: #### 5 8410-2 ####[facility] LABORATORYCLIA [id number] [address] Nucleated RBC (Bld) [#/Vol] 10*3/uL Normal <0.01 [facility] Comment on above: Order Comment: Speci men Type: BLOOD SPECIMENOrdering Facility: [facility] Address: [address] [place] [address] Performed By: #### 5 8410-2 ####[facility]ORATORYCLIA [id number] [address] Platelet mean volume (Bld) [Entitic vol] 9.3 fL Normal 9.0-12.7 [facility] Comment on above: Order Comment: Speci men Type: BLOOD SPECIMENOrdering Facility: [facility] Address: [address] [place] [address] Performed By: #### 5 8410-2 ####[facility] LABORATORYCLIA [id number] [address] [place] Platelets (Bld) [#/Vol] 108 10*3/uL Low 150-400 [facility] Comment on above: Order Comment: Speci men Type: BLOOD SPECIMENOrdering Facility: [facility] Address: [address] [place] [address] Performed By: #### 5 8410-2 ####[facility] LABORATORYCLIA [id number] [place] [address] [facility] RBC (Bld) [#/Vol] 2.89 10*6/uL Low 3.90-5.20 [facility] Comment on above: Order Comment: Speci men Type: BLOOD SPECIMENOrdering Facility: [facility] Address: [address] [place], [place] [address] Performed By: #### 5 8410-2 ####[facility] LABORATORYCLIA [id number] [address] WBC (Bld) [#/Vol] 5.19 10*3/uL Normal 3.70-11.00 [facility] Comment on above: Order Comment: Speci men Type: BLOOD SPECIMENOrdering Facility: [facility] Address: [address] [place] [address] Performed By: #### 5 8410-2 ####[facility] LABORATORYCLIA [id number] [address] CNDSon 08-13-2021 [facility] HNO ID: [id number] Author: Alisha Velásquez PA-C Service: Hospital Medicine Author Type: Physician Wellness Health Coach Type: Discharge Summary Filed: 08/13/2021 1:52 PM Note Text: Attestation signed by Catarina Ragsdale MD at 08/27/2021 10:25 PM Attending Note I have personally reviewed the PADILLA note. Agree with above assessment and plan. [...] Attending Provider: Catarina Ragsdale MD Primary Service: [place] [address] Physician Wellness Health Coach: Alisha Velásquez PA-C Consulting: Samuel Qiu MD [...] DISPOSITION: Ho (more content not included)... Normal [facility] Comprehensive metabolic 2000 panelon 08-13-2021 Albumin [Mass/Vol] 2.9 g/dL Low 3.9-4.9 [facility] Comment on above: Order Comment: Speci men Type: BLOOD SPECIMEN [facility] Address: [address] [address] Performed By: #### 5 7021-8 #### [facility] CLIA [id number] [address] OF [facility] ALP [Catalytic activity/Vol] 71 U/L Normal 34-123 [facility] Comment on above: Order Comment: Speci men Type: BLOOD SPECIMEN [facility] Address: [address] [place] [address] Performed By: #### 5 7021-8 #### [facility] CLIA [id number] [address] ALT [Catalytic activity/Vol] 14 U/L Normal 7-38 [facility] Comment on above: Order Comment: Speci men Type: BLOOD SPECIMEN [facility] Address: [address] [place] [address] Performed By: #### 5 7021-8 #### [facility] CLIA [id number] [address] Anion gap [Moles/Vol] 9 mmol/L Normal 9-18 [facility] Comment on above: Order Comment: Speci men Type: BLOOD SPECIMEN [facility] Address: [address] [place] [address] Performed By: #### 5 7021-8 #### [facility] CLIA [id number] [address] AST [Catalytic activity/Vol] 28 U/L Normal 13-35 [facility] Comment on above: Order Comment: Speci men Type: BLOOD SPECIMEN [facility] Address: [address] [place] [address] Performed By: #### 5 7021-8 #### [facility] CLIA [id number] [address] [place] Bilirubin [Mass/Vol] 0.5 mg/dL Normal 0.2-1.3 [facility] Comment on above: Order Comment: Speci men Type: BLOOD SPECIMEN [facility] Address: [address] [place] [address] Performed By: #### 5 7021-8 #### [facility] CLIA [id number] [address] OF [facility] Calcium [Mass/Vol] 8.5 mg/dL Normal 8.5-10.2 [facility] Comment on above: Order Comment: Speci men Type: BLOOD SPECIMEN [facility] Address: [address] [place] [address] Performed By: #### 5 7021-8 #### [facility] CLIA [id number] [address] [place] [address] [place] Chloride [Moles/Vol] 110 mmol/L High 97-105 [facility] Comment on above: Order Comment: Speci men Type: BLOOD SPECIMEN [facility] Address: [address] [place] [address] Performed By: #### 5 7021-8 #### [facility] CLIA [id number] [address] [place] [address] [place] CO2 [Moles/Vol] 23 mmol/L Normal 22-30 [facility] Comment on above: Order Comment: Speci men Type: BLOOD SPECIMEN [facility] Address: [address] [place] [address] Performed By: #### 5 7021-8 #### [facility] CLIA [id number] [address] [place] [address] [place] Creatinine [Mass/Vol] 0.74 mg/dL Normal 0.58-0.96 [facility] Comment on above: Order Comment: Speci men Type: BLOOD SPECIMEN [facility] Address: [address] [place] [address] Performed By: #### 5 7021-8 #### [facility] CLIA [id number] [address] [place] ESTIMATED GLOMERULAR FILTRATION RATE 79 mL/min/1.73m??? Normal >=60 [facility] Comment on above: Order Comment: Speci men Type: BLOOD SPECIMEN [facility] Address: [address] [place], [place] [address] Result Comment: Huma mated Glomerular Filtration Rate [...] GFR. Performed By: #### 5 7021-8 #### [facility] CLIA [id number] [address] [place] [address] [place] Glucose [Mass/Vol] 126 mg/dL High 74-[address] [place] [address] Comment on above: Order Comment: Olga coley Type: BLOOD SPECIMEN Order[facility] Facility: [facility] Address: [address] [place], [place] [phone] Result Comment: The [place] Diabetes [employer] (ADA) provides guidance for cutoff [...] Standards of Medical Care in Diabetes 2016, [place] [employer]. Diabetes Care. 2016.39(Suppl 1). Performed By: #### 5 7021-8 #### [facility] CLIA [id number] [address] [place] [address] [place] Potassium [Moles/Vol] 4.0 mmol/L Normal 3.7-5.1 [facility] Comment on above: Order Comment: Olga coley Type: BLOOD SPECIMEN [facility] Address: [address] [place], [place] [address] Performed By: #### 5 7021-8 #### [facility] CLIA [id number] [address] [place] [address] Protein [Mass/Vol] 6.5 g/dL Normal 6.3-8.0 [facility] Comment on above: Order Comment: Speci men Type: BLOOD SPECIMEN [facility] Address: [address] [place] [address] Performed By: #### 5 7021-8 #### [facility] CLIA [id number] [address] Sodium [Moles/Vol] 142 mmol/L Normal 136-144 [facility] Comment on above: Order Comment: Speci men Type: BLOOD SPECIMEN [facility] Address: [address] [place] [address] Performed By: #### 5 7021-8 #### [facility] CLIA [id number] [address] Urea nitrogen [Mass/Vol] 11 mg/dL Normal 7-21 [facility] Comment on above: Order Comment: Speci men Type: BLOOD SPECIMEN [facility] Address: [address] [place] [address] Performed By: #### 5 7021-8 #### [facility] CLIA [id number] [address] Magnesium SerPl-mCncon 08-13 Magnesium [Mass/Vol] 2.1 mg/dL Normal 1.7-2.3 [facility] Comment on above: Order Comment: Speci men Type: BLOOD SPECIMEN [facility] Address: [address] [place] [address] Performed By: #### 5 7021-8 #### [facility] CLIA [id number] [address] PT panel Coag (PPP)on 2021 INR Coag (PPP) [Relative time] 2.0 {INR} High 0.9-1.3 [facility] Comment on above: Order Comment: Speci men Type: BLOOD SPECIMENOrdering Facility: [facility] Address: [address] [place] [address] Result Comment: Maricruz min K Antagonist (VKA) Therapeutic Range: INR 2 to 3 (Target INR of 2.5) Note: For patients treated with VKA drugs, such as warfarin, the [place] [employer] 2012 Guideline recommends [...] GH, et al. Chest 2012, 141:7S-47S Geri LYNCH et al. [facility] 2017, 70: 252-289 Performed By: #### 3 4528-0 ####[facility] LABORATORYCLIA [id number] [place] [address] [place] PT Coag (PPP) [Time] 20.1 s High 9.7-13.0 [facility] Comment on above: Order Comment: Speci men Type: BLOOD SPECIMENOrdering Facility: [facility] Address: [address] [place] [address] Performed By: #### 3 4528-0 ####[facility] LABORATORYCLIA [id number] [address] STATES OF [facility] Bacteria Bld Culton 08-13-19 22 Bacteria identified Cx Nom (Bld) CULTURE, BLOOD: No growth 5 days Normal [facility] Comment on above: Performed By: #### 6 00-7 ####[facility] LABCLIA [id number] [address] OF [facility] Bacteria identified Cx Nom (Bld) CULTURE, BLOOD: No growth 5 days Normal [facility] Comment on above: Performed By: #### 6 00-7 ####[facility] LABCLIA [id number] [address] [place] Bacteria Ur Culton 2 Bacteria [...] >=320 F Susceptible <=40 , Resistant >40 [facility] Comment on above: Performed By: #### 6 30-4 ####[facility] LABCLIA [id number] [facility] [id number] [place] CBC W Auto Differential pane l (Bld)on 08-12-2021 Basophils (Bld) [#/Vol] 10*3/uL Normal <0.11 [facility] Comment on above: Order Comment: Speci men Type: BLOOD SPECIMEN [facility] Address: [address] [place] [address] Performed By: #### 5 7021-8 #### [facility] CLIA [id number] [address] Basophils/100 WBC (Bld) 0.4 % Normal [facility] Comment on above: Order Comment: Speci men Type: BLOOD SPECIMEN [facility] Address: [address] [place] [address] Performed By: #### 5 7021-8 #### [facility] CLIA [id number] [address] Differential cell count method Nom (Bld) Auto Normal [facility] Comment on above: Order Comment: Speci men Type: BLOOD SPECIMEN [facility] Address: [address] [place] [address] Performed By: #### 5 7021-8 #### [facility] CLIA [id number] [address] [place] Eosinophils (Bld) [#/Vol] 0.07 10*3/uL Normal <0.46 [facility] Comment on above: Order Comment: Speci men Type: BLOOD SPECIMEN [facility] Address: [address] [place] [address] Performed By: #### 5 7021-8 #### [facility] CLIA [id number] [address] Eosinophils/100 WBC (Bld) 1.4 % Normal [facility] Comment on above: Order Comment: Speci men Type: BLOOD SPECIMEN [facility] Address: [address] [place] [address] Performed By: #### 5 7021-8 #### [facility] CLIA [id number] [address] Erythrocyte distribution width (RBC) [Ratio] 16.9 % High 11.5-15.0 [facility] Comment on above: Order Comment: Speci men Type: BLOOD SPECIMEN [facility]: [facility] Address: [address] [place] [address] Performed By: #### 5 7021-8 #### [facility] CLIA [id number] [address] [place] Hematocrit (Bld) [Volume fraction] 25.7 % Low 36.0-46.0 [facility] Comment on above: Order Comment: Speci men Type: BLOOD SPECIMEN [facility] Address: [address] [place] [address] Performed By: #### 5 7021-8 #### [facility] CLIA [id number] [address] [place] Hemoglobin (Bld) [Mass/Vol] 8.1 g/dL Low 11.5-15.5 [facility] Comment on above: Order Comment: Speci men Type: BLOOD SPECIMEN [facility] Address: [address] [place] [address] Performed By: #### 5 7021-8 #### [facility] CLIA [id number] [address] [place] IMMATURE GRAN % 0.4 % Normal [facility] Comment on above: Order Comment: Speci men Type: BLOOD SPECIMEN [facility] Address: [address] [place] [address] Performed By: #### 5 7021-8 #### [facility] CLIA [id number] [address] IMMATURE GRAN ABS <0.03 Normal <0.10 [facility] Comment on above: Order Comment: Speci men Type: BLOOD SPECIMEN [facility] Address: [address] [place] [address] Performed By: #### 5 7021-8 #### [facility] CLIA [id number] [address] [place] [address] [place] Lymphocytes (Bld) [#/Vol] 1.28 10*3/uL Normal 1.00-4.00 [facility] Comment on above: Order Comment: Speci men Type: BLOOD SPECIMEN [facility]: [facility] Address: [address] [place] [address] Performed By: #### 5 7021-8 #### [facility] CLIA [id number] [address] Lymphocytes/100 WBC (Bld) 25.5 % Normal [facility] Comment on above: Order Comment: Speci men Type: BLOOD SPECIMEN [facility] Address: [address] [place] [address] Performed By: #### 5 7021-8 #### [facility] CLIA [id number] [address] MCH (RBC) [Entitic mass] 28.7 pg Normal 26.0-34.0 [facility] Comment on above: Order Comment: Speci men Type: BLOOD SPECIMEN [facility] Address: [address] [place] [address] Performed By: #### 5 7021-8 #### [facility] CLIA [id number] [address] MCHC (RBC) [Mass/Vol] 31.5 g/dL Normal 30.5-36.0 [facility] Comment on above: Order Comment: Speci men Type: BLOOD SPECIMEN [facility] Address: [address] [place] [address] Performed By: #### 5 7021-8 #### [facility] CLIA [id number] [address] MCV (RBC) [Entitic vol] 91.1 fL Normal 80.0-100.0 [facility] Comment on above: Order Comment: Speci men Type: BLOOD SPECIMEN [facility] Address: [address] [place] [address] Performed By: #### 5 7021-8 #### [facility] CLIA [id number] [address] Monocytes (Bld) [#/Vol] 0.75 10*3/uL Normal <0.87 [facility] Comment on above: Order Comment: Speci men Type: BLOOD SPECIMEN [facility] Address: [address] [place] [address] Performed By: #### 5 7021-8 #### [facility] CLIA [id number] [address] Monocytes/100 WBC (Bld) 15.0 % Normal [facility] Comment on above: Order Comment: Speci men Type: BLOOD SPECIMEN [facility] Address: [address] [place] [address] Performed By: #### 5 7021-8 #### [facility] CLIA [id number] [address] Neutrophils (Bld) [#/Vol] 2.87 10*3/uL Normal 1.45-7.50 [facility] Comment on above: Order Comment: Speci men Type: BLOOD SPECIMEN [facility] Address: [address] [place] [address] Performed By: #### 5 7021-8 #### [facility] CLIA [id number] [address] Neutrophils/100 WBC (Bld) 57.3 % Normal [facility] Comment on above: Order Comment: Speci men Type: BLOOD SPECIMEN [facility] Address: [address] [place] [address] Performed By: #### 5 7021-8 #### [facility] CLIA [id number] [address] [place] Nucleated RBC (Bld) [#/Vol] 10*3/uL Normal <0.01 [facility] Comment on above: Order Comment: Speci men Type: BLOOD SPECIMEN [facility] Facility[facility] Address: [address] [place] [address] Performed By: #### 5 7021-8 #### [facility] CLIA [id number] [address] [place] [address] [place] Nucleated RBC/100 WBC (Bld) [Ratio] 0.0 /100 WBC Normal [facility] Comment on above: Order Comment: Speci men Type: BLOOD SPECIMEN [facility] Facility: [facility] Address: [address] [place] [address] Performed By: #### 5 7021-8 #### [facility] CLIA [id number] [address] [place] [address] [place] Platelet mean volume (Bld) [Entitic vol] 9.6 fL Normal 9.0-12.7 [facility] Comment on above: Order Comment: Speci men Type: BLOOD SPECIMEN [facility] Facility: [facility] Address: [address] [place] [address] Performed By: #### 5 7021-8 #### [facility] CLIA [id number] [address] [place] [address] [place] Platelets (Bld) [#/Vol] 116 10*3/uL Low 150-400 [facility] Comment on above: Order Comment: Speci men Type: BLOOD SPECIMEN [facility] Facility: [facility] Address: [address] [place] [address] Performed By: #### 5 7021-8 #### [facility] CLIA [id number] [address] [place] [address] [place] RBC (Bld) [#/Vol] 2.82 10*6/uL Low 3.90-5.20 [facility] Comment on above: Order Comment: Speci men Type: BLOOD SPECIMEN Ordering Facility: [facility] Address: [address] [place] [address] Performed By: #### 5 7021-8 #### [facility] CLIA [id number] [address] [place] [address] [place] WBC (Bld) [#/Vol] 5.01 10*3/uL Normal 3.70-11.00 [facility] Comment on above: Order Comment: Speci men Type: BLOOD SPECIMEN Ordering Facility: [facility] Address: [address] [place] [address] Performed By: #### 5 7021-8 #### [facility] CLIA [id number] [address] [place] [address] [facility] Comprehensive metabolic 2000 panelon 08-12-2021 Albumin [Mass/Vol] 3.1 g/dL Low 3.9-4.9 [facility] Comment on above: Order Comment: Speci men Type: BLOOD SPECIMENOrdering Facility: [facility] Address: [address] [place] [address] Performed By: #### P ROCELBERT, 44710-1 ####[facility] [id number] [address] [place] ALP [Catalytic activity/Vol] 78 U/L Normal 34-123 [facility] Comment on above: Order Comment: Speci men Type: BLOOD SPECIMENOrdering Facility: [facility] Address: [address] [place] [address] Performed By: #### P ADAN, 25129-1 ####[facility] [id number] [address] [place] ALT [Catalytic activity/Vol] 15 U/L Normal 7-38 [facility] Comment on above: Order Comment: Speci men Type: BLOOD SPECIMENOrdering Facility: [facility] Address: [address] [place], [place] [address] Performed By: #### P ROCAL, 04419-2 ####[facility] [id number] [address] Anion gap [Moles/Vol] 8 mmol/L Low 9-18 [facility] Comment on above: Order Comment: Speci men Type: BLOOD SPECIMENOrdering Facility: [facility] Address: [address] [place] [address] Performed By: #### P ROCELBERT, 35806-0 ####[facility] [id number] [address] [place] AST [Catalytic activity/Vol] 31 U/L Normal 13-35 [facility] Comment on above: Order Comment: Speci men Type: BLOOD SPECIMENOrdering Facility: [facility] Address: [address] [place] [address] Performed By: #### P ADAN, 91327-4 ####[facility]ORYCLIA [id number] [place] [address] [place] Bilirubin [Mass/Vol] 0.6 mg/dL Normal 0.2-1.3 [facility] Comment on above: Order Comment: Speci men Type: BLOOD SPECIMENOrdering Facility: [facility] Address: [address] [place] [address] Performed By: #### P ADAN, 31546-8 ####[facility]CLIA [id number] [address] STATES OF [facility] Calcium [Mass/Vol] 8.7 mg/dL Normal 8.5-10.2 [facility] Comment on above: Order Comment: Speci men Type: BLOOD SPECIMENOrdering Facility: [facility] Address: [address] [place] [address] Performed By: #### P ADAN, 17476-1 ####RODAS LABORATORYCLIA [id number] [address] [place] Chloride [Moles/Vol] 106 mmol/L High 97-105 [facility] Comment on above: Order Comment: Speci men Type: BLOOD SPECIMENOrdering Facility: [facility] Address: [address] [place] [address] Performed By: #### P ADAN, [id number] ####RODAS LABORATORYCLIA [id number] [address] [place] CO2 [Moles/Vol] 24 mmol/L Normal 22-30 [facility] Comment on above: Order Comment: Speci men Type: BLOOD SPECIMENOrdering Facility: [facility] Address: [address] [place] [address] Performed By: #### P ADAN, [id number] ####RODAS LABORATORYCLIA [id number] [address] [place] [facility] Creatinine [Mass/Vol] 0.78 mg/dL Normal 0.58-0.96 [facility] Comment on above: Order Comment: Olga coley Type: BLOOD SPECIMENOrdering Facility: [facility] Address: [address] [place] [address] Performed By: #### Jyoit ARELLANO, 00414-3 ####LOW[facility] LABORATORYCLIA [id number] [place] [id number] [facility] [place] ESTIMATED GLOMERULAR FILTRATION RATE 75 mL/min/1.73m??? Normal >=60 [facility] Comment on above: Order Comment: Olga coley Type: BLOOD SPECIMENOrdering Facility: [facility] Address: [address] [place] [address] Result Comment: Huma mated Glomerular Filtration Rate [...] actual GFR. Performed By: #### Jyoti ARELLANO, 75185-2 ####RODAS LABORATORYCLIA [id number] [address] [place] Glucose [Mass/Vol] 113 mg/dL High 74-99 [facility] Comment on above: Order Comment: Olga coley Type: BLOOD SPECIMENOrdering Facility: [facility] Address: [address] [place] [address] Result Comment: The [place] Diabetes Association (ADA) provides guidance for cutoff [...] Standards of Medical Care in Diabetes 2016, [place] [employer]. Diabetes Care. 2016.39(Suppl 1). Performed By: #### Jyoti ARELLANO 54907-7 ####RODAS LABORATORYCLIA [id number] [address] STATES [facility] Potassium [Moles/Vol] 3.6 mmol/L Low 3.7-5.1 [facility] Comment on above: Order Comment: Speci men Type: BLOOD SPECIMENOrdering Facility: [facility] Address: [address] [place] [address] Performed By: #### Jyoti ARELLANO 77155-9 ####RODAS LABORATORYCLIA [id number] [address] Protein [Mass/Vol] 7.0 g/dL Normal 6.3-8.0 [facility] Comment on above: Order Comment: Olga coley Type: BLOOD SPECIMENOrdering Facility: [facility] Address: [address] [place] [address] Performed By: #### Jyoti ARELLANO 35913-6 ####RODAS LABORATORYCLIA [id number] [address] Sodium [Moles/Vol] 138 mmol/L Normal 136-144 [facility] Comment on above: Order Comment: Olga coley Type: BLOOD SPECIMENOrdering Facility: [facility] Address: [address] [place] [address] Performed By: #### Jyoti ARELLANO 27297-0 ####RODAS LABORATORYCLIA [id number] [address] [place] Urea nitrogen [Mass/Vol] 13 mg/dL Normal 7-21 [facility] Comment on above: Order Comment: Olga coley Type: BLOOD SPECIMENOrdering Facility: [facility] Address: [address] [place] [address] Performed By: #### Jyoti ARELLANO 98515-8 ####RODAS LABORATORYCLIA [id number] [address] [place] ED NOTEon 08-12-2021 ED NOTE HNO ID: [id number] Author: Madonna Dimas RN Service: ? Author Type: Registered Nurse Type: ED Notes Filed: 08/12/2021 7:37 PM Note Text: Pt report was called to Rosie BRUNO [facility] ED NOTE HNO ID: [id number] Author: Madonna Dimas RN Service: ? Author Type: Registered Nurse Type: ED Notes Filed: 08/12/2021 7:32 PM Note Text: Pt is ambulatory Family has been bedside [facility] ED NOTE HNO ID: [id number] Author: Madonna Dimas RN Service: ? Author Type: Registered Nurse Type: ED Notes Filed: 08/12/2021 6:23 PM Note Text: Waiting for a bed assignment in the hospital [facility] ED NOTE HNO ID: [id number] Author: Madonna Dimas RN Service: ? Author Type: Registered Nurse Type: ED Notes Filed: 08/12/2021 3:42 PM Note Text: Pt report was received [facility] ED NOTE HNO ID: [id number] Author: Marcela Sandoval RN Service: Nursing Author [...] started with a fever and hematuria today. [facility] ED PROV NOTEon 08-12-2021 ED PROV NOTE HNO ID: [id number] Author: Page Dudley MD Service: ? Author [...] She was admitted earlier this month at [facility] for sepsis, seemingly from a [...] REMOVE TONSILS/ADENOIDS,<12 (more content not included)... Normal [facility] Gas and Carbon monoxide pane l (BldV)on 08-12-2021 Base excess Calc (BldV) [Moles/Vol] 0 mmol/L Normal 0-2 [facility] Comment on above: Order Comment: Speci men Type: VENOUS BLOOD SPECIMENOrdering Facility: [facility] Address: [address] [place] [place] [address] Performed By: #### 2 4344-4 ####RODAS RESPIRATORYCLIA [id number] [facility] RESPIRATORY [id number] [address] [address] Carboxyhemoglobin (BldV) [Mass fraction] 1.0 % Normal 0.0-2.0 [facility] Comment on above: Order Comment: Speci men Type: VENOUS BLOOD SPECIMENOrdering Facility: [facility] Address: [address] [place] [address] Performed By: #### 2 4344-4 ####RODAS RESPIRATORYCLIA [id number] [facility]AT[facility] [id number] [address] [address] CO2 (BldV) [Partial pressure] 39 mm[Hg] Low 42-55 [facility] Comment on above: Order Comment: Speci men Type: VENOUS BLOOD SPECIMENOrdering Facility: [facility] Address: [address] [place] [place] [address] Performed By: #### 2 4344-4 ####RODAS RESPIRATORYCLIA [id number] [facility] RESPIRAT[facility] [id number] [address] [address] CO2 adjusted to patient's actual temperature (BldV) [Partial pressure] Normal [facility] Comment on above: Order Comment: Speci men Type: VENOUS BLOOD SPECIMENOrdering Facility: [facility] Address: [address] Performed By: #### 2 4344-4 ####RODAS RESPIRATORYCLIA [id number] [id number] [address] [address] HCO3 (Bld) [Moles/Vol] 24 mmol/L Normal 24-28 [facility] Comment on above: Order Comment: Speci men Type: VENOUS BLOOD SPECIMENOrdering Facility: [facility] Address: [address] [place] [address] Performed By: #### 2 4344-4 ####RODAS RESPIRATORYCLIA [id number] [facility] RES[facility] [id number] [address] [address] Hemoglobin (Bld) [Mass/Vol] 15.3 g/dL Normal 11.5-15.5 [facility] Comment on above: Order Comment: Speci men Type: VENOUS BLOOD SPECIMENOrdering Facility: [facility] Address: [address] [place] [address] Performed By: #### 2 4344-4 ####LOWES RESPIRATORYCLIA [id number] [facility] RESPIRATORY [id number] [address] [address] Lactate [Moles/Vol] 1.9 mmol/L Normal 0.5-2.2 [facility] Comment on above: Order Comment: Speci men Type: VENOUS BLOOD SPECIMENOrdering Facility: [facility] Address: [address] [place] [address] Performed By: #### 2 4344-4 ####LOWES RESPIRATORYIA [id number] [facility]OSP[facility] RESPIRATORY [id number] [address] [address] Methemoglobin (Bld) [Mass fraction] % Normal 0.0-1.5 [facility] Comment on above: Order Comment: Speci men Type: VENOUS BLOOD SPECIMENOrdering Facility: [facility] Address: [address] [place] [address] Performed By: #### 2 4344-4 ####LOWES RESPIRATORYCLIA [id number] [facility]OSPITAL RESPIRATORY [id number] [address] [address] O2 THERAPY RA=Room Air Normal [facility] Comment on above: Order Comment: Speci men Type: VENOUS BLOOD SPECIMENOrdering Facility: [facility] Address: [facility] [place] [address] Performed By: #### 2 4344-4 ####[facility]ATORYST [facility] [id number] HOSPITAL RESPIRATORY [id number] [address] [address] Oxygen (BldV) [Partial pressure] 43 mm[Hg] Normal 35-45 [facility] Comment on above: Order Comment: Speci men Type: VENOUS BLOOD SPECIMENOrdering Facility: [facility] Address: [address] [place] [address] Performed By: #### 2 4344-4 ####RODAS RESPIRATORYCLIA [id number] [facility]OS[facility] RESPIRATORY [id number] [address] [address] Oxygen adjusted to patient's actual temperature (BldV) [Partial pressure] Normal [facility] Comment on above: Order Comment: Speci men Type: VENOUS BLOOD SPECIMENOrdering Facility: [facility] Address: [address] [place] [address] Performed By: #### 2 4344-4 ####LOWES RESPIRATORYCLIA [id number] [facility] RESPIRATORY [id number] [address] [address] Oxyhemoglobin (BldV) [Mass fraction] 74 % Normal 60-85 [facility] Comment on above: Order Comment: Speci men Type: VENOUS BLOOD SPECIMENOrdering Facility: [facility] Address: [address] [place] [address] Performed By: #### 2 4344-4 ####LOWES RESPIRATORYCLIA [id number] [facility]OSP[facility] RESPIRATORY [id number] [address] [address] pH (BldV) 7.41 [pH] Normal 7.32-7.42 [facility] Comment on above: Order Comment: Speci men Type: VENOUS BLOOD SPECIMENOrdering Facility: [facility] Address: [address] Performed By: #### 2 4344-4 ####RODAS RESPIRATORYCLIA [id number] [facility] RESPIRATORY [id number] [address] [address] pH adjusted to patient's actual temperature (BldV) Normal [facility] Comment on above: Order Comment: Speci men Type: VENOUS BLOOD SPECIMENOrdering Facility: [facility] Address: [address] [place] [address] Performed By: #### 2 4344-4 ####RODAS RESPIRATORYCLIA [id number] [facility] RESPIRATORY [id number] [address] [address] Potassium [Moles/Vol] 3.6 mmol/L Normal 3.5-5.0 [facility] Comment on above: Order Comment: Speci men Type: VENOUS BLOOD SPECIMENOrdering Facility: [facility] Address: [address] [place] [address] Performed By: #### 2 4344-4 ####RODAS RESPIRATORYCLIA [id number] [facility] RESPIRATORY [id number] [address] [address] HISTORY PHYSICALon HISTORY PHYSICAL HNO ID: [id number] Author: Vania Oliveira APRN.CNP Service: Hospital Medicine [...] Galina Iraheta MD NIGHT AND WEEKEND COVERAGE: LOWES COVERAGE: Days: [phone], please page attending physician. Nights: [phone], please page [facility] Night coverage pager [phone]. Subjective CHIEF COMPLAINT: dysuria HPI: 86yo female [...] sepsis as this was diagnosed recently at [facility], thus requesting admission for IV antibiotics. [...] BREAST NEEDLE (more content not included)... Normal [facility] PROCALCITONIN (LAB)on 2021 Procalcitonin [Mass/Vol] 0.11 ng/mL High <0.09 [facility] Comment on above: Order Comment: Speci men Type: BLOOD SPECIMENOrdering Facility: [facility] Address: [address] [place] [address] Result Comment: For a guided interpretation of test results, please visit the Change in Procalcitonin Calculator, [email or web address]. Performed By: #### P ADAN 47867-7 ####LOWES LABORATORYCLIA [id number] [place] [address] [place] PT panel Coag (PPP)on 2021 INR Coag (PPP) [Relative time] 2.0 {INR} High 0.9-1.3 [facility] Comment on above: Order Comment: Olga coley Type: BLOOD SPECIMENOrdering Facility: [facility] Address: [address] [place], [place] [address] Result Comment: Maricruz min K Antagonist (VKA) Therapeutic Range: INR 2 to 3 (Target INR of 2.5) Note: For patients treated with VKA drugs, such as warfarin, the [place] [employer] 2012 Guideline recommends [...] Chest 2012, 141:7S-47S Geri RA, et al. [facility] 2017, 70: 252-289 Performed By: #### 3 4528-0, 80113-2 ####LOWES LABORATORYCLIA [id number] [place] [address] [place] PT Coag (PPP) [Time] 20.3 s High 9.7-13.0 [facility] Comment on above: Order Comment: Olga coley Type: BLOOD SPECIMENOrdering Facility: [facility] Address: [address] [place] [address] [place] [id number] Performed By: #### 3 4528-0, 90861-5 ####LOWES LABORATORYCLIA [id number] [place] [address] [place] SARS-CoV-2 RNA Resp Ql DEMARCUS+p juana 08-12-2021 SARS-CoV-2 (COVID-19) RNA DEMARCUS+probe Ql (Resp) COVID 19 RESULT: SARS-CoV-2 (Agent of COVID-19) Not Detected by RT-PCR or equivalent method. This test has been authorized by FDA under an Emergency Use Authorization (EUA). Normal [facility] Comment on above: Performed By: #### 9 4500-6 ####RODAS LABORATORYCLIA [id number] [address] URINALYSIS, REFLEX MICROSCOP ICon 08-12-2021 Bilirubin Ql (U) Negative Normal Negative [facility] Comment on above: Order Comment: Speci men Type: URINE SPECIMENOrdering Facility: [facility] Address: [address] [place] [address] Performed By: #### L [id number] ####RODAS LABORATORYCLIA [id number] [address] Clarity (Unsp spec) Clear Normal Clear [facility] Comment on above: Order Comment: Speci men Type: URINE SPECIMENOrdering Facility: [facility] Address: [address] [place] [address] Performed By: #### L [id number] ####RODAS LABORATORYCLIA [id number] [address] Color (U) Yellow Normal Yellow [facility] Comment on above: Order Comment: Speci men Type: URINE SPECIMENOrdering Facility: [facility] Address: [address] [place] [address] Performed By: #### L [id number] ####RODAS LABORATORYCLIA [id number] [address] Glucose Test strip (U) [Mass/Vol] Negative Normal Negative [facility] Comment on above: Order Comment: Speci men Type: URINE SPECIMENOrdering Facility: [facility] Address: [address] [place] [address] Performed By: #### L [id number] ####RODAS LABORATORYCLIA [id number] [address] Hemoglobin Ql (U) Trace Abnormal Negative [facility] Comment on above: Order Comment: Speci men Type: URINE SPECIMENOrdering Facility: [facility] Address: [address] [place] [address] Performed By: #### L [id number] ####RODAS LABORATORYCLIA [id number] [address] Ketones Ql (U) Negative Normal Negative [facility] Comment on above: Order Comment: Speci men Type: URINE SPECIMENOrdering Facility: [facility] Address: [address] [place] [address] Performed By: #### L [id number] ####RODAS LABORATORYCLIA [id number] [address] [place] Leukocyte esterase Test strip Ql (U) 3+ Abnormal Negative [facility] Comment on above: Order Comment: Speci men Type: URINE SPECIMENOrdering Facility: [facility] Address: [address] [place] [address] Performed By: #### L [id number] ####RODAS LABORATORYCLIA [id number] [address] Nitrite Ql (U) Negative Normal Negative [facility] Comment on above: Order Comment: Speci men Type: URINE SPECIMENOrdering Facility: [facility] Address: [address] [place] [address] Performed By: #### L [id number] ####RODAS LABORATORYCLIA [id number] [address] [place] pH (U) 6.5 [pH] Normal 5.0-8.0 [facility] Comment on above: Order Comment: Speci men Type: URINE SPECIMENOrdering Facility: [facility] Address: [address] [place] [address] Performed By: #### L [id number] ####RODAS LABORATORYCLIA [id number] [address] [place] Protein (U) [Mass/Vol] Negative Normal Negative [facility] Comment on above: Order Comment: Speci men Type: URINE SPECIMENOrdering Facility: [facility] Address: [address] [place] [address] Performed By: #### L [id number] ####RODAS LABORATORYCLIA [id number] [place] [address] [place] RBC LM.HPF (Urine sed) [#/Area] 0-3 /HPF Normal 0-3 /HPF [facility] Comment on above: Order Comment: Speci men Type: URINE SPECIMENOrdering Facility: [facility] Address: [address] [place] [address] Performed By: #### L [id number] ####RODAS LABORATORYCLIA [id number] [address] Specific gravity (U) [Rel density] <=1.005 Low 1.005-1.030 [facility] Comment on above: Order Comment: Speci men Type: URINE SPECIMENOrdering Facility: [facility] Address: [address] [place] [address] Performed By: #### L [id number] ####RODAS LABORATORYCLIA [id number] [address] Urobilinogen Ql (U) 0.2 EU/dL Normal 0.2-1.0 EU/dL [facility] Comment on above: Order Comment: Speci men Type: URINE SPECIMENOrdering Facility: [facility] Address: [address] [place] [address] Performed By: #### L [id number] ####LOWES LABORATORYCLIA [id number] [address] WBC LM.HPF (Urine sed) [#/Area] /[HPF] Abnormal 0-5 /HPF [facility] Comment on above: Order Comment: Speci men Type: URINE SPECIMENOrdering Facility: [facility] Address: [address] [place] [address] Performed By: #### L [id number] ####RODAS LABORATORYCLIA [id number] [place] [address] [place] US DVT LOWER LTon 08-12-2021 US DVT LOWER LT * * *Final Report* * * DATE OF EXAM: Aug 12 2021 9:42PM JAVON 1006 - US DVT LOWER LT / [...] imaged segments of the left lower extremity. Personnel Research Psychologist: GRANT Transcribe Date/Time: Aug 12 2021 9:49P Dictated by : MEHRDAD INIGUEZ MD This examination was interpreted and the report reviewed and electronically signed by: MEHRDAD INIGUEZ MD on Aug 12 2021 9:50PM EST [id number] Normal [facility] aPTT PPPon 08-12-2021 aPTT Coag (PPP) [Time] 72.9 s High 23.0-32.4 [facility] Comment on above: Order Comment: Speci men Type: BLOOD SPECIMENOrdering Facility: [facility] Address: [address] [place] [address] Performed By: #### 3 4528-0, 74423-2 ####LOWES LABORATORYCLIA [id number] [place] [address] [place] UA DIP, URINE (POC)on 2021 BILIRUBIN UA (POCT) Negative Negative [facility] CLARITY UA (POCT) Clear [facility] COLOR UA (POCT) Yellow [facility] GLUCOSE UA (POCT) Negative Negative mg/dL [facility] HEMOGLOBIN/BLOOD UA (POCT) Trace-intact Abnormal Negative [facility] KETONE UA (POCT) Negative Negative mg/dL [facility] LEUKOCYTES UA (POCT) Small Abnormal Negative [facility] NITRITE UA (POCT) Negative Negative [facility] PH UA (POCT) 6.5 4.5 - 8.0 [facility] Protein Ql (U) Negative Negative mg/dL [facility] SPECIFIC GRAVITY UA (POCT) 1.010 1.005 - 1.030 [facility] UROBILINOGEN UA (POCT) 0.2 E.U./dL Winifred l E.U./dL [facility] Absolute lymphocyte counton 07-23-2021 Lymphocytes Auto (Unsp spec) [#/Vol] 1.68 10*3/uL 0.83-4.51 [facility] Work Phone: Basophil percentageon 2021 Basophils/100 WBC (Bld) 0.7 % 0-1 [facility] Work Phone: Chloride [Moles/Vol] 109 mmol/L 98-107 [facility] Work Phone: Eosinophils/100 WBC (Bld) 1.3 % 0-5 [facility] Work Phone: Glucose [Mass/Vol] 79 mg/dL 74-106 [facility] Work Phone: Neutrophils (Bld) [#/Vol] 4.3 10*3/uL 2.0-7.7 [facility] Work Phone: Neutrophils/100 WBC (Bld) 61.7 % 47-70 [facility] Work Phone: Potassium [Moles/Vol] 3.8 mmol/L 3.5-5.1 [facility] Work Phone: Sodium [Moles/Vol] 143 mmol/L 136-145 [facility] Work Phone: WBC (Bld) [#/Vol] 7.0 10*3/uL 4.4-11.0 [facility] Work Phone: Blood erythrocytes count (nu mber/volume)on 07-23-2021 RBC (Bld) [#/Vol] 3.00 10*6/uL 4.2-5.4 [facility] Work [facility]: Blood hemoglobin measurement (mass/volume)on 07-23-2021 Hemoglobin (Bld) [Mass/Vol] 9.0 g/dL 12.0-15.0 [facility] Work Phone: Blood lymphocytes/100 leukoc yteson 07-23-2021 Lymphocytes/100 WBC (Bld) 24.1 % 19-41 [facility] Work Phone: Blood monocytes/100 leukocyt eson 07-23-2021 Monocytes/100 WBC (Bld) 12.1 % 0-10 [facility] Work Phone: Blood platelet mean volumeon 07-23-2021 Platelet mean volume (Bld) [Entitic vol] 9.5 fL 6.2-12.0 [facility] Work Phone: Determination of erythrocyte mean corpuscular volume (MCV)on 07-23-2021 MCV (RBC) [Entitic vol] 94.0 fL 81-99 [facility] Work Phone: Hematocrit Auto (Bld) [Volum e fraction]on 07-23-2021 Hematocrit (Bld) [Volume fraction] 28.2 % 37-47 [facility] Work Phone: INR in Blood by Coagulation assayon 07-23-2021 INR Coag (Bld) [Relative time] 2.6 {INR} [facility] Work Phone: Laboratory - Chemistry and C hemistry - challengeon 07-23-2021 CO2 [Moles/Vol] 28.0 mmol/L 21.0-32.0 [facility] Work Phone: Magnesium [Mass/Vol] 2.2 mg/dL 1.6-2.6 [facility] Work Phone: Urea nitrogen/Creatinine [Mass ratio] 21.6 mg/mg 10-20 [facility] Work Phone: Laboratory - Coagulationon 0 07-23-2021 PT Coag (PPP) [Time] 27.5 s 11.7-14.9 [facility] Work Phone: Laboratory - Hematology and Cell countson 07-23-2021 Erythrocyte distribution width (RBC) [Entitic vol] 58.2 fL 35.1-43.9 [facility] Work Phone: Erythrocyte distribution width (RBC) [Ratio] 16.9 % 11.6-14.6 [facility] Work Phone: Immature granulocytes/100 WBC (Bld) 0.100 % 0.0-0.9 [facility] Work Phone: Comment on above: IG% - Immature Granu locytes (promyelocytes, myelocytes and metamyelocytes) > 1% indicates that a LEFT SHIFT is Present. MCH (RBC) [Entitic mass] 30.0 pg 27.0-32.0 [facility] Work Phone: Nucleated RBC/100 WBC (Bld) [Ratio] 0 % 0-5 [facility] Work Phone: MCHC Auto (RBC) [Mass/Vol]on 07-23-2021 MCHC (RBC) [Mass/Vol] 31.9 g/dL 32-36 [facility] Work Phone: No Panel Informationon 07-23 Estimated GFR (MDRD) Amer 112 mL/min >60 [facility] Work Phone: Comment on above: GFR Calc Estimated GFR (MDRD) Non-Af Amer 92 mL/min >60 [facility] Work Phone: Comment on above: Non- GFR Calc Platelets bldon 07-23-2021 Platelets (Bld) [#/Vol] 178 10*3/uL 150-450 [facility] Work Phone: Serum or plasma calcium yonatan urement (mass/volume)on 07-23-2021 Calcium [Mass/Vol] 8.9 mg/dL 8.5-10.1 [facility] Work Phone: Serum or plasma creatinine m easurement (mass/volume)on 07-23-2021 Creatinine [Mass/Vol] 0.65 mg/dL 0.55-1.02 [facility] Work Phone: [phone] Comment on above: The validity of the calculated GFR & GFRAA in patients over 70 years has not been determined. Clinical correlation is essential. Serum or plasma urea nitroge n measurement (mass/volume)on 07-23-2021 Urea nitrogen [Mass/Vol] 14 mg/dL 7-18 [facility] Work Phone: [phone] Thin prep Papanicolaou smear with manual screeningon 07-23-2021 Thin prep Papanicolaou smear with manual screening 6 5-15 [facility] Work Phone: [phone] Absolute lymphocyte counton 07-16-2021 Lymphocytes Auto (Unsp spec) [#/Vol] 1.54 10*3/uL 0.83-4.51 [facility] Work Phone: [phone] Basophil percentageon 2021 Basophils/100 WBC (Bld) 0.6 % 0-1 [facility] Work Phone: [phone] Chloride [Moles/Vol] 109 mmol/L 98-107 [facility] Work Phone: Eosinophils/100 WBC (Bld) 2.5 % 0-5 [facility] Work Phone: [phone] Glucose [Mass/Vol] 66 mg/dL 74-106 [facility] Work Phone: [phone] Neutrophils (Bld) [#/Vol] 4.2 10*3/uL 2.0-7.7 [facility] Work Phone: Neutrophils/100 WBC (Bld) 63.4 % 47-70 [facility] Work Phone: Potassium [Moles/Vol] 4.0 mmol/L 3.5-5.1 [facility] Work Phone: Sodium [Moles/Vol] 141 mmol/L 136-145 [facility] Work Phone: WBC (Bld) [#/Vol] 6.7 10*3/uL 4.4-11.0 [facility] Work Phone: Blood erythrocytes count (nu mber/volume)on 07-16-2021 RBC (Bld) [#/Vol] 3.05 10*6/uL 4.2-5.4 [facility] Work Phone: Blood hemoglobin measurement (mass/volume)on 07-16-2021 Hemoglobin (Bld) [Mass/Vol] 9.1 g/dL 12.0-15.0 [facility] Work Phone: Blood lymphocytes/100 leukoc yteson 07-16-2021 Lymphocytes/100 WBC (Bld) 23.1 % 19-41 [facility] Work Phone: Blood monocytes/100 leukocyt eson 07-16-2021 Monocytes/100 WBC (Bld) 10.3 % 0-10 [facility] Work Phone: Blood platelet mean volumeon 07-16-2021 Platelet mean volume (Bld) [Entitic vol] 9.7 fL 6.2-12.0 [facility] Work Phone: Determination of erythrocyte mean corpuscular volume (MCV)on 07-16-2021 MCV (RBC) [Entitic vol] 95.4 fL 81-99 [facility] Work Phone: Hematocrit Auto (Bld) [Volum e fraction]on 07-16-2021 Hematocrit (Bld) [Volume fraction] 29.1 % 37-47 [facility] Work Phone: [phone] INR in Blood by Coagulation assayon 07-16-2021 INR Coag (Bld) [Relative time] 1.8 {INR} [facility] Work Phone: Laboratory - Chemistry and C hemistry - challengeon 07-16-2021 CO2 [Moles/Vol] 27.0 mmol/L 21.0-32.0 [facility] Work Phone: Urea nitrogen/Creatinine [Mass ratio] 25.0 mg/mg 10-20 [facility] Work Phone: Laboratory - Coagulationon 0 07-16-2021 PT Coag (PPP) [Time] 20.7 s 11.7-14.9 [facility] Work Phone: Laboratory - Hematology and Cell countson 07-16-2021 Erythrocyte distribution width (RBC) [Entitic vol] 60.8 fL 35.1-43.9 [facility] Work Phone: Erythrocyte distribution width (RBC) [Ratio] 17.3 % 11.6-14.6 [facility] Work Phone: Immature granulocytes/100 WBC (Bld) 0.100 % 0.0-0.9 [facility] Work Phone: Comment on above: IG% - Immature Granu locytes (promyelocytes, myelocytes and metamyelocytes) > 1% indicates that a LEFT SHIFT is Present. MCH (RBC) [Entitic mass] 29.8 pg 27.0-32.0 [facility] Work Phone: Nucleated RBC/100 WBC (Bld) [Ratio] 0 % 0-5 [facility] Work Phone: MCHC Auto (RBC) [Mass/Vol]on 07-16-2021 MCHC (RBC) [Mass/Vol] 31.3 g/dL 32-36 [facility] Work Phone: No Panel Informationon 07-16 Estimated GFR (MDRD) Amer 122 mL/min >60 [facility] Work Phone: Comment on above: GFR Calc Estimated GFR (MDRD) Non-Af Amer 101 mL/min >60 [facility] Work Phone: Comment on above: Non- GFR Calc Thyroid Stimulating Hormone (TSH) 2.10 uIU/mL 0.358-3.74 [facility] Work Phone: Platelets bldon 07-16-2021 Platelets (Bld) [#/Vol] 228 10*3/uL 150-450 [facility] Work Phone: Serum or plasma calcium yonatan urement (mass/volume)on 07-16-2021 Calcium [Mass/Vol] 9.0 mg/dL 8.5-10.1 oste r [facility] Work Phone: Serum or plasma creatinine m easurement (mass/volume)on 07-16-2021 Creatinine [Mass/Vol] 0.60 mg/dL 0.55-1.02 [facility] Work Phone: Comment on above: The validity of the calculated GFR & GFRAA in patients over 70 years has not been determined. Clinical correlation is essential. Serum or plasma urea nitroge n measurement (mass/volume)on 07-16-2021 Urea nitrogen [Mass/Vol] 15 mg/dL 7-18 [facility] Work Phone: Thin prep Papanicolaou smear with manual screeningon 07-16-2021 Thin prep Papanicolaou smear with manual screening 5 5-15 [facility] Work Phone: Absolute lymphocyte counton 07-13-2021 Lymphocytes Auto (Unsp spec) [#/Vol] 1.70 10*3/uL 0.83-4.51 [facility] Work Phone: Basophil percentageon 2021 Basophils/100 WBC (Bld) 0.7 % 0-1 [facility] Work Phone: Cholesterol [Mass/Vol] 113 mg/dL <200 [facility] Work Phone: Comment on above: <200 mg/dL Desirable 200-240 mg/dL Borderline >240 mg/dL High Risk Eosinophils/100 WBC (Bld) 2.9 % 0-5 [facility] Work Phone: Neutrophils (Bld) [#/Vol] 5.5 10*3/uL 2.0-7.7 [facility] Work Phone: [phone] Neutrophils/100 WBC (Bld) 65.5 % 47-70 [facility] Work Phone: [phone] Triglyceride [Mass/Vol] 95 mg/dL <199 [facility] Work Phone: [phone] Comment on above: The drugs N-Acetylcy steine and Metamizole may falsely depress this assay.Serum Triglycerides Reference Interval Normal <150 mg/dL Borderline high 150 - 199 mg/dL High 200 - 499 mg/dL Very High > or = 500 mg/dL WBC (Bld) [#/Vol] 8.4 10*3/uL 4.4-11.0 [facility] Work Phone: [phone] Blood erythrocytes count (nu mber/volume)on 07-13-2021 RBC (Bld) [#/Vol] 3.14 10*6/uL 4.2-5.4 [facility] Work Phone: Blood hemoglobin measurement (mass/volume)on 07-13-2021 Hemoglobin (Bld) [Mass/Vol] 9.4 g/dL 12.0-15.0 [facility] Work Phone: Blood lymphocytes/100 leukoc yteson 07-13-2021 Lymphocytes/100 WBC (Bld) 20.3 % 19-41 [facility] Work Phone: Blood monocytes/100 leukocyt eson 07-13-2021 Monocytes/100 WBC (Bld) 10.0 % 0-10 [facility] Work Phone: [phone] Blood platelet mean volumeon 07-13-2021 Platelet mean volume (Bld) [Entitic vol] 9.7 fL 6.2-12.0 [facility] Work Phone: Determination of erythrocyte mean corpuscular volume (MCV)on 07-13-2021 MCV (RBC) [Entitic vol] 94.6 fL 81-99 [facility] Work Phone: Hematocrit Auto (Bld) [Volum e fraction]on 07-13-2021 Hematocrit (Bld) [Volume fraction] 29.7 % 37-47 [facility] Work Phone: [phone] INR in Blood by Coagulation assayon 07-13-2021 INR Coag (Bld) [Relative time] 1.4 {INR} [facility] Work Phone: [phone] Laboratory - Chemistry and C hemistry - challengeon 07-13-2021 Magnesium [Mass/Vol] 2.2 mg/dL 1.6-2.6 [facility] Work Phone: [phone] Laboratory - Coagulationon 0 07-13-2021 PT Coag (PPP) [Time] 16.4 s 11.7-14.9 [facility] Work Phone: [phone] Laboratory - Hematology and Cell countson 07-13-2021 Erythrocyte distribution width (RBC) [Entitic vol] 58.6 fL 35.1-43.9 [facility] Work Phone: [phone] Erythrocyte distribution width (RBC) [Ratio] 17.2 % 11.6-14.6 [facility] Work Phone: [phone] Immature granulocytes/100 WBC (Bld) 0.600 % 0.0-0.9 [facility] Work Phone: [phone] Comment on above: IG% - Immature Granu locytes (promyelocytes, myelocytes and metamyelocytes) > 1% indicates that a LEFT SHIFT is Present. MCH (RBC) [Entitic mass] 29.9 pg 27.0-32.0 [facility] Work Phone: [phone] Nucleated RBC/100 WBC (Bld) [Ratio] 0 % 0-5 [facility] Work Phone: MCHC Auto (RBC) [Mass/Vol]on 07-13-2021 MCHC (RBC) [Mass/Vol] 31.6 g/dL 32-36 [facility] Work Phone: No Panel Informationon 07-13 Thyroid Stimulating Hormone (TSH) 3.09 uIU/mL 0.358-3.74 [facility] Work Phone: Platelets bldon 04-29-2022 Platelets (Bld) [#/Vol] 240 10*3/uL 150-450 [facility] Work Phone: Serum or plasma cholesterol in HDL measurement (mass/volume)on 07-13-2021 Cholesterol in HDL [Mass/Vol] 26 mg/dL >40 [facility] Work Phone: Comment on above: The drugs N-Acetylcy steine and Metamizole may falsely depress this assay. Reference Range HDL <40 mg/dL Low HDL Cholesterol HDL >or= 60 mg/dL High HDL Cholesterol Serum or plasma cholesterol in VLDL measurement (mass/volume)on 07-13-2021 Cholesterol in VLDL [Mass/Vol] 19 mg/dL 5-40 [facility] Work Phone: Serum or plasma low density lipoprotein (LDL) cholesterol measurement (mass/volume)on 07-13-2021 Cholesterol in LDL [Mass/Vol] 68 mg/dL 0-130 [facility] Work Phone: Serum or plasma transthyreti n measurement (mass/volume)on 07-13-2021 Prealbumin [Mass/Vol] 11.5 mg/dL 20.0-40.0 [facility] Work Phone: Whole blood hemoglobin A1c/t otal hemoglobin ratio (mass fraction)on 07-13-2021 HbA1c (Bld) [Mass fraction] 5.0 % 3.8-5.6 [facility] Work Phone: Comment on above: Normal < 5.7 % Predi abetic 5.7 - 6.4 % Diabetic >or= 6.5 % Please note range changes. HBV surface Ab IA Ql (S)on 0 07-05-2021 HBV surface Ag Ql (S) Negative Negative [facility] HEP A AB IGMon 07-05-2021 HAV IgM Ql (S) Negative Negative [facility] HEP B CORE AB IGMon 07-06-19 HBV core IgM Ql (S) Negative Negative [facility] HEP C AB IA W/CONF SCRNon HCV Ab Ql (S) Negative Negative [facility] Absolute lymphocyte counton 07-03-2021 Lymphocytes Auto (Unsp spec) [#/Vol] 0.96 10*3/uL 0.83-4.51 [facility] Work Phone: Basophil percentageon 2021 Basophil percentage 5-10 SEEN /hpf 0-5 [facility] Work Phone: Basophils/100 WBC (Bld) 0.4 % 0-1 [facility] Work Phone: Bilirubin [Mass/Vol] 2.30 mg/dL 0.20-1.00 [facility] Work Phone: Comment on above: For patients on eltr ombopag therapy, use of Dim[facility] TBIL is not recommended. Chloride [Moles/Vol] 106 mmol/L 98-107 [facility] Work Phone: Eosinophils/100 WBC (Bld) 1.4 % 0-5 [facility] Work Phone: Glucose [Mass/Vol] 114 mg/dL 74-106 [facility] Work Phone: Comment on above: Fasting Glucose resu lt from 100 to 125 mg/dL suggests IMPAIRED HOMEOSTASIS per A.D.A. criteria. Neutrophils (Bld) [#/Vol] 7.5 10*3/uL 2.0-7.7 [facility] Work Phone: Neutrophils/100 WBC (Bld) 77.6 % 47-70 [facility] Work Phone: Potassium [Moles/Vol] 4.0 mmol/L 3.5-5.1 [facility] Work Phone: Protein [Mass/Vol] 7.5 g/dL 6.4-8.2 [facility] Work Phone: Sodium [Moles/Vol] 137 mmol/L 136-145 [facility] Work Phone: WBC (Bld) [#/Vol] 9.7 10*3/uL 4.4-11.0 [facility] Work Phone: Bilirubin Test strip Ql (U)o n 07-03-2021 Bilirubin Ql (U) Negative Negative [facility] Work Phone: [phone] Blood erythrocytes count (nu mber/volume)on 07-03-2021 RBC (Bld) [#/Vol] 3.10 10*6/uL 4.2-5.4 [facility] Work Phone: Blood hemoglobin measurement (mass/volume)on 07-03-2021 Hemoglobin (Bld) [Mass/Vol] 9.3 g/dL 12.0-15.0 [facility] Work Phone: Blood lymphocytes/100 leukoc yteson 07-03-2021 Lymphocytes/100 WBC (Bld) 9.9 % 19-41 [facility] Work Phone: Blood monocytes/100 leukocyt eson 07-03-2021 Monocytes/100 WBC (Bld) 10.2 % 0-10 [facility] Work Phone: Blood platelet mean volumeon 07-03-2021 Platelet mean volume (Bld) [Entitic vol] 9.2 fL 6.2-12.0 [facility] Work Phone: [phone] Determination of erythrocyte mean corpuscular volume (MCV)on 07-03-2021 MCV (RBC) [Entitic vol] 94.2 fL 81-99 [facility] Work Phone: Direct bilirubinon Bilirubin.direct [Mass/Vol] 1.82 mg/dL 0.00-0.30 [facility] Work Phone: Hematocrit Auto (Bld) [Volum e fraction]on 07-03-2021 Hematocrit (Bld) [Volume fraction] 29.2 % 37-47 [facility] Work Phone: [phone] INR in Blood by Coagulation assayon 07-03-2021 INR Coag (Bld) [Relative time] 3.6 {INR} [facility] Work Phone: Ketones Test strip Ql (U)on 07-03-2021 Ketones Ql (U) Negative Negative [facility] Work Phone: Laboratory - Chemistry and C hemistry - challengeon 07-03-2021 ALP [Catalytic activity/Vol] 143 U/L 45-117 [facility] Work Phone: [phone] ALT [Catalytic activity/Vol] 49 U/L 13-56 [facility] Work Phone: [phone] CO2 [Moles/Vol] 25.0 mmol/L 21.0-32.0 [facility] Work Phone: [phone] Globulin (S) [Mass/Vol] 4.9 g/dL 2.2-4.2 [facility] Work Phone: Lipase [Catalytic activity/Vol] 260 U/L 73-393 [facility] Work Phone: [phone] Urea nitrogen/Creatinine [Mass ratio] 12.9 mg/mg 10-20 [facility] Work Phone: [phone] Laboratory - Coagulationon 0 07-03-2021 PT Coag (PPP) [Time] 35.3 s 11.7-14.9 [facility] Work Phone: [phone] Laboratory - Hematology and Cell countson 07-03-2021 Erythrocyte distribution width (RBC) [Entitic vol] 54.8 fL 35.1-43.9 [facility] Work Phone: [phone] Erythrocyte distribution width (RBC) [Ratio] 15.9 % 11.6-14.6 [facility] Work Phone: [phone] Immature granulocytes/100 WBC (Bld) 0.500 % 0.0-0.9 [facility] Work Phone: [phone] Comment on above: IG% - Immature Granu locytes (promyelocytes, myelocytes and metamyelocytes) > 1% indicates that a LEFT SHIFT is Present. MCH (RBC) [Entitic mass] 30.0 pg 27.0-32.0 [facility] Work Phone: [phone] Nucleated RBC/100 WBC (Bld) [Ratio] 0 % 0-5 [facility] Work Phone: [phone] MCHC Auto (RBC) [Mass/Vol]on 07-03-2021 MCHC (RBC) [Mass/Vol] 31.8 g/dL 32-36 [facility] Work Phone: Mucus LM Ql (Urine sed)on Mucus Ql (Urine sed) 0 SEEN /hpf [facility] Work Phone: Nitrite Test strip Ql (U)on 07-03-2021 Nitrite Ql (U) Negative Negative [facility] Work Phone: No Panel Informationon 07-03 Estimated Creatinine Clearance Calc 46.12 ml/min [facility] Work Phone: Estimated GFR (MDRD) Amer 81 mL/min >60 [facility] Work Phone: Comment on above: GFR Calc Estimated GFR (MDRD) Non-Af Amer 67 mL/min >60 [facility] Work Phone: Comment on above: Non- GFR Calc Platelets bldon 07-03-2021 Platelets (Bld) [#/Vol] 160 10*3/uL 150-450 [facility] Work Phone: Protein Test strip Ql (U)on 07-03-2021 Protein Ql (U) 15 mg/dl Negative [facility] Work Phone: Serum or plasma albumin yonatan urement (mass/volume)on 07-03-2021 Albumin [Mass/Vol] 2.6 g/dL 3.2-5.0 [facility] Work Phone: Serum or plasma calcium yonatan urement (mass/volume)on 07-03-2021 Calcium [Mass/Vol] 8.7 mg/dL 8.5-10.1 [facility] Work Phone: Serum or plasma creatinine m easurement (mass/volume)on 07-03-2021 Creatinine [Mass/Vol] 0.85 mg/dL 0.55-1.02 [facility] Work Phone: Comment on above: The validity of the calculated GFR & GFRAA in patients over 70 years has not been determined. Clinical correlation is essential. Serum or plasma urea nitroge n measurement (mass/volume)on 07-03-2021 Urea nitrogen [Mass/Vol] 11 mg/dL 7-18 [facility] Work Phone: Squamous epithelial cells de tection in urine sediment by light microscopyon 07-03-2021 Epithelial cells.squamous LM Ql (Urine sed) 0 SEEN /hpf 5-10 [facility] Work Phone: Thin prep Papanicolaou smear with manual screeningon 07-03-2021 Thin prep Papanicolaou smear with manual screening 87 U/L 15-37 [facility] Work Phone: Thin prep Papanicolaou smear with manual screening 6 5-15 [facility] Work Phone: Urine blood detectionon 06-15 RBC Ql (U) 10 /ul Negative [facility] Work Phone: RBC Ql (U) 0-5 SEEN /hpf 0-5 [facility] Work Phone: Urine clarityon 07-03-2021 Clarity (U) Clear Clear [facility] Work Phone: Urine color determinationon 07-03-2021 Color (U) Yellow Yellow [facility] Work Phone: Urine glucose detectionon Glucose Ql (U) Normal mg/dl Normal [facility] Work Phone: Urine leukocyte esterase det ection by dipstickon 07-03-2021 Leukocyte esterase Test strip Ql (U) 500 /ul Negative [facility] Work Phone: Urine pHon 07-03-2021 pH (U) 7.0 [pH] 5.0 - 8.0 [facility] Work Phone: Urine sediment bacteria coun t by microscopy (number/high power field)on 07-03-2021 Bacteria LM.HPF (Urine sed) [#/Area] 2 /[HPF] None Seen [facility] Work Phone: Urine specific gravity measu rementon 07-03-2021 Specific gravity (U) [Rel density] 1.010 1.002-1.030 [facility] Work Phone: Urobilinogen Auto test strip Ql (U)on 07-03-2021 Urobilinogen Ql (U) 1 mg/dl Normal [facility] Work Phone: XR Chest PA and Lateralon IMPRESSION: Mild bibasilar atelectasis. Subtle infection could appear similar but is thought less likely. Personnel Research Psychologist: PSCB Transcribe Date/Time: May 17 2021 6:05P Dictated by : SHAN KAY MD This examination was interpreted and the report reviewed and electronically signed by: SHAN KAY MD on May 17 2021 6:07PM [facility] DIVISION OF RADIOLOGY * * *Final Report* [...] acute osseous abnormality. DIVISION OF RADIOLOGY Provider, [facility] [...] appear similar but is thought less likely. Personnel Research Psychologist: GRANT Transcribe Date/Time: May 17 2021 6:05P Dictated by : SHAN KAY MD This examination was interpreted and the report reviewed and electronically signed by: SHAN KAY MD on May 17 2021 6:07PM EST [facility] Radiology Study observation (narrative) [facility] XR Chest PA and LateralOrder ed By: Ccf Provider on 05-17-2021 [facility] Basic Metabolic Panlon 01-14 Anion gap [Moles/Vol] 7 mmol/L Low 9-18 [facility] Comment on above: Performed By: #### M , BMP, CBC ####[facility] [address] [place] [address] Calcium [Mass/Vol] 8.5 mg/dL Normal 8.5-10.2 [facility] Comment on above: Performed By: #### M , BMP, CBC ####[facility] [address] [place] [address] Chloride [Moles/Vol] 110 mmol/L High 97-105 [facility] Comment on above: Performed By: #### M , BMP, CBC ####[facility] [address] [place] [address] CO2 [Moles/Vol] 23 mmol/L Normal 22-30 [facility] Comment on above: Performed By: #### M G1, BMP, CBC ####[facility] [address] [place] [address] Creatinine [Mass/Vol] 0.85 mg/dL Normal 0.58-0.96 [facility] Comment on above: Performed By: #### M G1, BMP, CBC ####[facility] [address] [place] [address] eGFR- Amer. >60 Normal [facility] Comment on above: Performed By: #### M G1, BMP, CBC ####[facility] [address] [place] [phone] eGFR-All Other Races >60 Normal [facility] Comment on above: Result Comment: eGFR (Estimated [...] reflect actual GFR. Performed By: #### M STEPHAN Prabhakar, CBC ####[facility] [address] [place] [phone] Glucose [Mass/Vol] 94 mg/dL Normal 74-99 [facility] Comment on above: Result Comment: The [place] [employer] (ADA) provides guidance for cutoff [...] Standards of Medical Care in Diabetes 2016, [place] [employer]. Diabetes Care. 2016.39(Suppl 1). Performed By: #### M Vanna, BMP, CBC ####[facility] [address] [place] [phone] Potassium [Moles/Vol] 3.8 mmol/L Normal 3.7-5.1 [facility] Comment on above: Performed By: #### M G1, BMP, CBC ####[facility] [address] [place] [phone] Sodium [Moles/Vol] 140 mmol/L Normal 136-144 [facility] Comment on above: Performed By: #### M Vanna, BMP, CBC ####[facility] [address] [place] [address] Urea nitrogen [Mass/Vol] 10 mg/dL Normal 7-21 [facility] Comment on above: Performed By: #### M STEPHAN Prabhakar, CBC ####[place] [address] CBCon 01-14-2021 Absolute nRBC <0.01 Normal <0.01 [facility] Comment on above: Performed By: #### M STEPHAN Prabhakar, CBC ####[place] [address] Erythrocyte distribution width (RBC) [Ratio] 16.5 % High 11.5-15.0 [facility] Comment on above: Performed By: #### M STEPHAN Prabhakar, CBC ####[place] [address] Hematocrit (Bld) [Volume fraction] 25.5 % Low 36.0-46.0 [facility] Comment on above: Performed By: #### M STEPHAN Prabhakar, CBC ####[place] [address] Hemoglobin (Bld) [Mass/Vol] 8.4 g/dL Low 11.5-15.5 [facility] Comment on above: Performed By: #### STEPHAN Carmona, CBC ####[place] [address] MCH 34.7 pG High 26.0-34.0 [facility] Comment on above: Performed By: #### M STEPHAN Prabhakar, CBC ####[place] [address] MCHC (RBC) [Mass/Vol] 32.9 g/dL Normal 30.5-36.0 [facility] Comment on above: Performed By: #### M STEPHAN Prabhakar, CBC ####[place] [address] MCV (RBC) [Entitic vol] 105.4 fL High 80.0-100.0 [facility] Comment on above: Performed By: #### M STEPHAN Prabhakar, CBC ####[place] [address] Platelet mean volume (Bld) [Entitic vol] 9.8 fL Normal 9.0-12.7 [facility] Comment on above: Performed By: #### M G1, BMP, CBC ####[facility] [address] Platelets (Bld) [#/Vol] 109 10*3/uL Low 150-400 [facility] Comment on above: Performed By: #### M G1, BMP, CBC ####[facility] [address] [place] [id number] RBC (Bld) [#/Vol] 2.42 10*6/uL Low 3.90-5.20 [facility] Comment on above: Performed By: #### M G1, BMP, CBC ####[facility] [address]6505 [address] WBC (Bld) [#/Vol] 5.89 10*3/uL Normal 3.70-11.00 [facility] Comment on above: Performed By: #### M G1, BMP, CBC ####[facility] [address] CNDSon 01-14-2021 CNDS HNO ID: [id number] Author: Wendy Bonilla DO Service: Hospital Medicine [...] DO Consulting: Johnny Turk MD Primary Service: [place] [address] REASON FOR HOSPITALIZATION: Rectal Bleed DIAGNOSIS: Principal [...] HOSPITALIZATION: No procedures performed HOSPITAL COURSE: ?Ms. Lynis an 85-year-old female presenting today with about [...] were placed as previously ordered by her vamp wetter to follow up on this and pending at time of discharge. She was provided with referral and number for [facility] and advised to call for an appointment. 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 She was discharged home in stable condition. [...] FOLLOW-UP: [facility], Follow up LOCAL COMBINATION TRUCK DRIVER for endometrial thickening. Follow up Dr. Turk one week [facility]ED[facility] MEDICATION CHANGES: Hold coumadin one week LABS AND PROCEDURES PENDING AT DISCHARGE: Urine culture Hepatitis serologies PATIENT CONDITION AT DISCHARGE: Stable DISCHARGE DISPOSITION: Home/Self Care Discharge Physical Exam: VITAL SIGNS: BP 105/52 Pulse 69 Temp 36.8 ?C (98.2 ?F) Resp 16 Ht 167.6 cm (5' 6") Wt 81.4 kg (179 lb 7.3 oz) [...] pre-hospital ac (more content not included)... Normal [facility] Magnesiumon 01-14-2021 Magnesium [Mass/Vol] 2.0 mg/dL Normal 1.7-2.3 [facility] Comment on above: Performed By: #### M G1, BMP, CBC ####[facility] [address] [place] [phone] NURSING PROGon 01-14-2021 NURSING PROG HNO ID: [id number] Author: Albania Perez RN Service: ? Author Type: Registered Nurse Type: Nursing Progress Note Filed: 01/14/2021 5:01 PM Note Text: Nursing Progress Note Patient Name: Christian Landrum Patient Location: [place] [id number] Daily Note:1650-R chest mediport de acsessed, DC home instructions given-verbalized understanding. This note was completed by: Albania Perez [facility] ALLIED HEALTHon 01-13-2021 ALLIED HEALTH HNO ID: [id number] Author: Margy Walker RDMS Service: Radiology Author Type: Curtain Inspector Type: Allied Health Filed: 01/13/2021 3:05 PM [...] Walker RDMS January 13, 2021 3:05 PM [facility] Basic Metabolic Panlon 01-13 Anion gap [Moles/Vol] 8 mmol/L Low 9-18 [facility] Comment on above: Performed By: #### P TSTEPHAN, CBC ####[facility] [address] [place] [phone] Calcium [Mass/Vol] 8.2 mg/dL Low 8.5-10.2 [facility] Comment on above: Performed By: #### P T BMP, CBC ####[facility] [address] [place] [phone] Chloride [Moles/Vol] 106 mmol/L High 97-105 [facility] Comment on above: Performed By: #### P Petr BMP, CBC ####[facility] [address] [place] [address] CO2 [Moles/Vol] 20 mmol/L Low 22-30 [facility] Comment on above: Performed By: #### STEPHAN Diaz, CBC ####[facility] [address] [place] [address] Creatinine [Mass/Vol] 0.74 mg/dL Normal 0.58-0.96 [facility] Comment on above: Performed By: #### STEPHAN Diaz, CBC ####[facility] [address] [place] [address] eGFR- Amer. >60 Normal [facility] Comment on above: Performed By: #### STEPHAN Diaz, CBC ####[facility] [address] [place] [address] eGFR-All Other Races >60 Normal [facility] Comment on above: Result Comment: eGFR (Estimated [...] reflect actual GFR. Performed By: #### P STEPHAN Mcgowan, CBC ####[facility] Xpcqpuzndj6564 [place] [phone] Glucose [Mass/Vol] 179 mg/dL High 74-99 [facility] Comment on above: Result Comment: The [place] Diabetes Association (ADA) provides guidance for cutoff [...] Standards of Medical Care in Diabetes 2016, [place] [employer]. Diabetes Care. 2016.39(Suppl 1). Performed By: #### P T, BMP, CBC ####[facility] [address] [place] [address] Potassium [Moles/Vol] 3.8 mmol/L Normal 3.7-5.1 [facility] Comment on above: Performed By: #### P T, BMP, CBC ####[facility] [address] [place] [address] Sodium [Moles/Vol] 134 mmol/L Low 136-144 [facility] Comment on above: Performed By: #### P T, BMP, CBC ####[facility] [address] [place] [address] Urea nitrogen [Mass/Vol] 15 mg/dL Normal 7-21 [facility] Comment on above: Performed By: #### P T, BMP, CBC ####[facility] [address] [place] [address] CBCon 01-13-2021 Absolute nRBC <0.01 Normal <0.01 [facility] Comment on above: Performed By: #### P T, BMP, CBC ####[facility] [address] [place] [address] Erythrocyte distribution width (RBC) [Ratio] 16.6 % High 11.5-15.0 [facility] Comment on above: Performed By: #### P T, BMP, CBC ####[facility] [address] [place] [address] Hematocrit (Bld) [Volume fraction] 24.8 % Low 36.0-46.0 [facility] Comment on above: Performed By: #### P T, BMP, CBC ####[facility] [address] [place] [address] Hemoglobin (Bld) [Mass/Vol] 8.4 g/dL Low 11.5-15.5 [facility] Comment on above: Performed By: #### P T, BMP, CBC ####[facility] [address] [place] [address] MCH 35.9 pG High 26.0-34.0 [facility] Comment on above: Performed By: #### P T, BMP, CBC ####[facility] [address]agsaiq9570 [place] [address] MCHC (RBC) [Mass/Vol] 33.9 g/dL Normal 30.5-36.0 [facility] Comment on above: Performed By: #### P T, BMP, CBC ####[facility] Ghkwjdwcfp6041 [place] [address] MCV (RBC) [Entitic vol] 106.0 fL High 80.0-100.0 [facility] Comment on above: Performed By: #### P T, BMP, CBC ####[facility] Jrhjbphzpz9187 [place] [address] Platelet mean volume (Bld) [Entitic vol] 10.2 fL Normal 9.0-12.7 [facility] Comment on above: Performed By: #### P T, BMP, CBC ####[facility] Yfcypovlrs3195 [place] [phone] Platelets (Bld) [#/Vol] 104 10*3/uL Low 150-400 [facility] Comment on above: Performed By: #### P T, BMP, CBC ####[facility] Uyxgmnfvil7657 [address] RBC (Bld) [#/Vol] 2.34 10*6/uL Low 3.90-5.20 [facility] Comment on above: Performed By: #### P T, BMP, CBC ####[facility] Tikquwulhm8825 [address] WBC (Bld) [#/Vol] 6.11 10*3/uL Normal 3.70-11.00 [facility] Comment on above: Performed By: #### P T, BMP, CBC ####[facility] Xxfmwblezy4477 [place] [address] CONSULTon 01-13-2021 CONSULT HNO ID: [id number] Author: Johnny Turk MD Service: General Surgery [...] high-grade dysplasia removed during colonoscopy by 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 Normal [facility] Hep B Core Ab, IgMon 021 Hep B Core Ab, IgM Negative Normal Negative [facility] Comment on above: Performed By: #### 5 7021-8 #### [facility] CLIA [id number] [address] [place] [address] [place] Hep B Core Ab,Totalon 2020 Hep B Core Ab,Total Positive Critically abnormal Negative [facility] Comment on above: Result Comment: Resu lt rechecked. Performed By: #### 5 7021-8 #### [facility] CLIA [id number] [address] Hepat.B Vir Ult Qton 021 HBV DNA Ultra Not detected Normal [facility] Comment on above: Result Comment: Refe rence Range: Negative for HBVDNA The linear range of this assay is 10 to 1,000,000,000 IU/mL. Performed By: #### 5 7021-8 #### [facility] CLIA [id number] [address] Hepatitis Be Antibodon 01-13 Hepatitis Be Antibod Negative Normal Negative [facility] [...] required. Performed By: #### 5 7021-8 #### [facility] CLIA [id number] [address] Hepatitis Be Antigenon 01-13 Hepatitis Be Antigen Negative Normal Negative [facility] Comment on above: Performed By: #### 5 7021-8 #### [facility] CLIA [id number] [address] Protimeon 01-13-2021 PT INR 2.5 High 0.9-1.3 [facility] Comment on above: Result Comment: Maricruz min K Antagonist (VKA) Therapeutic Range: INR 2 to 3 (Target INR of 2.5) Note: For patients treated with VKA drugs, such as warfarin, the [place] [employer] 2012 Guideline recommends [...] Chest 2012, 141:7S-47S Geri RA, et al. [facility] 2017, 70: 252-289 Performed By: #### P T, BMP, CBC ####[facility] [address]um54[address] [place] [phone] PT Sec 25.8 sec High 9.7-13.0 [facility] Comment on above: Performed By: #### P T, BMP, CBC ####[facility] T[address]ztytac2782 [place] [phone] FEMALE PELVIS TRANSABD LT Don 01-13-2021 FEMALE [...] visualized transvaginally. Trace free fluid Unremarkable adnexa. Personnel Research Psychologist: GRANT Transcribe Date/Time: Jan 13 2021 6:02P Dictated by : NATA HANEY MD This examination was interpreted and the report reviewed and electronically signed by: NATA HANEY MD on Jan 13 2021 6:07PM EST [id number] [facility] US FEMALE PELVIS TRANSVAGon 01-13-2021 US [...] visualized transvaginally. Trace free fluid Unremarkable adnexa. Personnel Research Psychologist: PSCB Transcribe Date/Time: Jan 13 2021 6:02P Dictated by : NATA HANEY MD This examination was interpreted and the report reviewed and electronically signed by: NATA HANEY MD on Jan 13 2021 6:07PM EST [id number] [facility] Urine Cultureon 01-13-2021 Bacteria identified Cx Nom (U) Sp. Request/Comment: - Specimen received in preservative Culture Result - <10,000 CFU/ml Lactose positive gram negative bacilli --> ABNORMAL ALERT Insignificant colony count. No further workup. --> ABNORMAL ALERT <10,000 CFU/ml Normal urogenital cy Critically abnormal [facility] Comment on above: Performed By: #### U RCUL ####[facility] [address] [place] [address] F[address] [place], [place] [phone] APTTon 01-12-2021 aPTT Coag (Bld) [Time] 112.0 s High 23.0-32.4 [facility] Comment on above: Result Comment: Unfr actionated [...] laboratory APTT reagent in use throughout the [facility]. Sample checked for a clot. No call per procedure. 01/12/2021 1541 Performed By: #### C MP, CBCDIF, PTT, MG1, PT ####[place] [address] CBC and Differentialon 01-12 Abs Baso 0.05 k/uL Normal <0.11 [facility] Comment on above: Performed By: #### C MP, CBCDIF, PTT, MG1, PT ####[place] [address] Abs Aurora 0.86 k/uL Normal <0.87 [facility] Comment on above: Performed By: #### C MP, CBCDIF, PTT, MG1, PT ####[place] [address] Abs Neut 5.89 k/uL Normal 1.45-7.50 [facility] Comment on above: Performed By: #### C MP, CBCDIF, PTT, MG1, PT ####[place] [address] Absolute nRBC <0.01 Normal <0.01 [facility] Comment on above: Performed By: #### C MP, CBCDIF, PTT, MG1, PT ####[facility] [address] [place] [address] Basophils/100 WBC (Bld) 0.6 % [facility] Comment on above: Performed By: #### C MP, CBCDIF, PTT, MG1, PT ####[facility] [address] [place] [address] DTYPE Auto Diff [facility] Comment on above: Performed By: #### C MP, CBCDIF, PTT, MG1, PT ####[place] [address] Eosinophils (Bld) [#/Vol] 0.09 10*3/uL Normal <0.46 [facility] Comment on above: Performed By: #### C MP, CBCDIF, PTT, MG1, PT ####[place] [address] Eosinophils/100 WBC (Bld) 1.0 % [facility] Comment on above: Performed By: #### C MP, CBCDIF, PTT, MG1, PT ####[place] [address] Erythrocyte distribution width (RBC) [Ratio] 16.4 % High 11.5-15.0 [facility] Comment on above: Performed By: #### C MP, CBCDIF, PTT, MG1, PT ####[place] [address] Hematocrit (Bld) [Volume fraction] 27.4 % Low 36.0-46.0 [facility] Comment on above: Performed By: #### C MP, CBCDIF, PTT, MG1, PT ####[place] [address] Hemoglobin (Bld) [Mass/Vol] 9.2 g/dL Low 11.5-15.5 [facility] Comment on above: Performed By: #### C MP, CBCDIF, PTT, MG1, PT ####[place] [phone] Lymphocytes (Bld) [#/Vol] 1.89 10*3/uL Normal 1.00-4.00 [facility] Comment on above: Performed By: #### C MP, CBCDIF, PTT, MG1, PT ####[facility] [address]msqubtpt3340 [place] [address] Lymphocytes/100 WBC (Bld) 21.5 % Normal [facility] Comment on above: Performed By: #### C MP, CBCDIF, PTT, MG1, PT ####[facility] [address]dllydavts8[address] [place] [address] MCH 35.1 pG High 26.0-34.0 [facility] Comment on above: Performed By: #### C MP, CBCDIF, PTT, MG1, PT ####[facility] [address] [place] [address] MCHC (RBC) [Mass/Vol] 33.6 g/dL Normal 30.5-36.0 [facility] Comment on above: Performed By: #### C MP, CBCDIF, PTT, MG1, PT ####[facility] [address]c35[address] [place] [address] MCV (RBC) [Entitic vol] 104.6 fL High 80.0-100.0 [facility] Comment on above: Performed By: #### C MP, CBCDIF, PTT, MG1, PT ####[facility] [address] [place] [address] Monocytes/100 WBC (Bld) 9.8 % Normal [facility] Comment on above: Performed By: #### C MP, CBCDIF, PTT, MG1, PT ####[facility] [address] [place] [address] Neutrophils/100 WBC (Bld) 67.1 % Normal [facility] Comment on above: Performed By: #### C MP, CBCDIF, PTT, MG1, PT ####[facility] [address] [place] [address] NRBCs 0.0 /100 WBC Normal 0 [facility] Comment on above: Performed By: #### C MP, CBCDIF, PTT, MG1, PT ####[facility] Z[address]pt20[address] [place] [address] Platelet mean volume (Bld) [Entitic vol] 10.6 fL Normal 9.0-12.7 [facility] Comment on above: Performed By: #### C MP, CBCDIF, PTT, MG1, PT ####[facility] K[address]yzeb9062 [place] [address] Platelets (Bld) [#/Vol] 126 10*3/uL Low 150-400 [facility] Comment on above: Result Comment: No c lot detected. Performed By: #### C MP, CBCDIF, PTT, MG1, PT ####[place] [address] RBC (Bld) [#/Vol] 2.62 10*6/uL Low 3.90-5.20 [facility] Comment on above: Performed By: #### C MP, CBCDIF, PTT, MG1, PT ####[place] [address] WBC (Bld) [#/Vol] 8.78 10*3/uL Normal 3.70-11.00 [facility] Comment on above: Performed By: #### C MP, CBCDIF, PTT, MG1, PT ####[facility] [address] [place] [address] CT ABD/PEL W IVCONon 021 CT ABD/PEL W IVCON * * *Final Report* * * DATE OF EXAM: Jan 12 2021 4:21PM [facility] 0530 - CT ABD/PEL W IVCON / [...] and/or stent in the RIGHT coronary circulation. Senior Engineering Specialist (topogram) images: No additional findings. IMPRESSION: Acute cystitis. Cirrhotic liver morphology. Cholelithiasis. Abnormal endometrial thickening to 12 mm in this postmenopausal female. Recommend further evaluation with a female pelvic ultrasound on a nonemergent basis. Acuity: Actionable Findings: Female reproductive tract (pelvis, adnexa) Routing code: WH_1 Recommendation: US FEMALE PELVIS NON-OB NON TORSION ([id number]) Time Frame: at the discretion of the clinical team. Personnel Research Psychologist: GRANT Transcribe Date/Time: Jan 12 2021 4:44P Dictated by : VANESA PRICE DO This examination was interpreted and the report reviewed and electronically signed by: VANESA PRICE DO on Jan 12 2021 5:01PM EST [id number] [facility] Comp Metabolic Panelon 01-12 Albumin [Mass/Vol] 3.4 g/dL Low 3.9-4.9 [facility] Comment on above: Performed By: #### C MP, CBCDIF, PTT, MG1, PT ####[facility] [address]q23[address] [place] [phone] ALP [Catalytic activity/Vol] 52 U/L Normal 34-123 [facility] Comment on above: Performed By: #### C MP, CBCDIF, PTT, MG1, PT ####[facility] R[address]juqepp7159 [place] [phone] ALT [Catalytic activity/Vol] 25 U/L Normal 7-38 [facility] Comment on above: Performed By: #### C MP, CBCDIF, PTT, MG1, PT ####[facility] Hhzragmmbm3004 [place] [phone] Anion gap [Moles/Vol] 12 mmol/L Normal 9-18 [facility] Comment on above: Performed By: #### C MP, CBCDIF, PTT, MG1, PT ####[facility] Ysosninifg5847 [place] [phone] AST [Catalytic activity/Vol] 59 U/L High 13-35 [facility] Comment on above: Performed By: #### C MP, CBCDIF, PTT, MG1, PT ####[facility] Khuledixpo5500 [place] [phone] Bilirubin [Mass/Vol] 1.0 mg/dL Normal 0.2-1.3 [facility] Comment on above: Performed By: #### C MP, CBCDIF, PTT, MG1, PT ####[facility] Icwocadunm6703 [place] [phone] Calcium [Mass/Vol] 8.9 mg/dL Normal 8.5-10.2 [facility] Comment on above: Performed By: #### C MP, CBCDIF, PTT, MG1, PT ####[facility] Ddvrlcscjz2888 [place] [phone] Chloride [Moles/Vol] 107 mmol/L High 97-105 [facility] Comment on above: Performed By: #### C MP, CBCDIF, PTT, MG1, PT ####[facility] Zdmacxexsm6672 [place] [address] CO2 [Moles/Vol] 21 mmol/L Low 22-30 [facility] Comment on above: Performed By: #### C MP, CBCDIF, PTT, MG1, PT ####[facility] Gpiuhkfrlq1455 [place] [address] Creatinine [Mass/Vol] 0.67 mg/dL Normal 0.58-0.96 [facility] Comment on above: Performed By: #### C MP, CBCDIF, PTT, MG1, PT ####[facility] Tueayhmsml0180 [place] [address] eGFR- Amer. >60 Normal [facility] Comment on above: Performed By: #### C MP, CBCDIF, PTT, MG1, PT ####[facility] Pcgezkapdg1678 [place] [address] eGFR-All Other Races >60 Normal [facility] Comment on above: Result Comment: eGFR (Estimated [...] #### C MP, CBCDIF, PTT, MG1, PT ####[facility] Ims[address]cyqp6208 [place] [phone] Glucose [Mass/Vol] 92 mg/dL Normal 74-99 [facility] Comment on above: Result Comment: The [place] Diabetes Association (ADA) provides guidance for cutoff [...] Standards of Medical Care in Diabetes 2016, [place] [employer]. Diabetes Care. 2016.39(Suppl 1). Performed By: #### C MP, CBCDIF, PTT, MG1, PT ####[facility] Qtihqyxaty1392 [place] [address] Potassium [Moles/Vol] 3.8 mmol/L Normal 3.7-5.1 [facility] Comment on above: Performed By: #### C MP, CBCDIF, PTT, MG1, PT ####[facility] Fssjglflqw9890 [place] [address] Protein [Mass/Vol] 6.0 g/dL Low 6.3-8.0 [facility] Comment on above: Performed By: #### C MP, CBCDIF, PTT, MG1, PT ####[facility] Igrukldbnq0920 [place] [address] Sodium [Moles/Vol] 140 mmol/L Normal 136-144 [facility] Comment on above: Performed By: #### C MP, CBCDIF, PTT, MG1, PT ####[facility] Enxnljvrnj1443 [place] [address] Urea nitrogen [Mass/Vol] 19 mg/dL Normal 7-21 [facility] Comment on above: Performed By: #### C MP, CBCDIF, PTT, MG1, PT ####[facility] Jf[address]jasopw7738 [place] [address] Confirm Blood Typeon 021 ABO/RH(D) Positive [facility] Comment on above: Performed By: #### 5 7021-8 #### [facility] CLIA [id number] [address] [place], [place] [address] [place] [address] ED NOTEon 01-12-2021 ED NOTE HNO ID: [id number] Author: Anusha Pabon RN Service: ? Author Type: Registered Nurse Type: ED Notes Filed: 01/12/2021 5:50 PM Note Text: Report called to Marbella bruno. [facility] ED NOTE HNO ID: [id number] Author: Anusha Pabon RN Service: ? Author Type: Registered Nurse Type: ED Notes Filed: 01/12/2021 5:38 PM Note Text: 10 min heads up given [facility] ED NOTE HNO ID: [id number] Author: Miguel Angel Sams Service: ? Author Type: Dairy Management Specialist and Demonstrator Knitting Type: ED Notes Filed: 01/12/2021 12:05 PM Note Text: Complains of black stools since Friday S/P colonoscopy this past Friday. [facility] ED PROV NOTEon 01-12-2021 ED PROV NOTE HNO ID: [id number] Author: Juan Covarrubias MD Service: ? 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 Normal [facility] Expedited [id number] 01-13-20 21 SARS-CoV-2 (COVID-19) RNA DEMARCUS+probe Ql (Unsp spec) UPPER RESPIRATORY TRACT SWAB Normal [facility] Comment on above: Performed By: #### E XCOVD #### [facility] [address] [place] [phone] SARS-CoV-2 (COVID-19) RNA DEMARCUS+probe Ql (Unsp spec) Negative for COVID19 (SARS CoV2) by RT-PCR or equivalent method. Normal Negative for COVID19 (SARS CoV2) by RT-PCR or equivalent method. [facility] Comment on above: Result Comment: This test has been authorized by FDA under an Emergency Use Authorization (EUA). Performed By: #### E XCOVD #### [facility] [address] [place] [address] HISTORY PHYSICALon HISTORY PHYSICAL HNO ID: [id number] Author: Selma Shepherd DO Service: Hospital Medicine Author Type: Physician Type: HANDP Filed: 01/12/2021 8:56 PM Note Text: HOSPITAL MEDICINE HISTORY AND PHYSICAL PCP: Galina Iraheta MD NIGHT AND WEEKEND COVERAGE: [employer] COVERAGE: Days: [phone], please page attending physician. Nights: [phone], please page [place] [facility] Night coverage pager [phone]. SUBJECTIVE Chief Complaint: Rectal bleeding HPI: Ms. 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 Normal [facility] Magnesiumon 01-12-2021 Magnesium [Mass/Vol] 2.0 mg/dL Normal 1.7-2.3 [facility] Comment on above: Performed By: #### C MP, CBCDIF, PTT, MG1, PT ####[facility] Folgfqjqld3017 [address] NT Pro BNPon 01-12-2021 PRO B Natr Peptide 116 pg/mL Normal <450 [facility] Comment on above: Performed By: #### N TBNP ####[facility] Nwkdacvvsl8959 [place] [address] NURSING PROGon 01-12-2021 NURSING PROG HNO ID: [id number] Author: Albania Perez RN Service: ? Author Type: Registered Nurse Type: Nursing Progress Note Filed: 01/12/2021 6:33 PM Note Text: Nursing Progress Note Patient Name: Christian Landrum Patient Location: [place] [address] [address] Daily Note:1830-received pt from ED,no acute distress noted,on RA,oriented to the room,call light within reach. This note was completed by: Albania Perez [facility] Protimeon 01-12-2021 PT INR 2.9 High 0.9-1.3 [facility] Comment on above: Result Comment: Maricruz min K Antagonist (VKA) Therapeutic Range: INR 2 to 3 (Target INR of 2.5) Note: For patients treated with VKA drugs, such as warfarin, the [place] [employer]icians 2012 Guideline recommends [...] Chest 2012, 141:7S-47S Geri RA, et al. [facility] 2017, 70: 252-289 Performed By: #### C MP, CBCDIF, PTT, MG1, PT ####[facility] [address] [place] [address] PT Sec 28.7 sec High 9.7-13.0 [facility] Comment on above: Performed By: #### C MP, CBCDIF, PTT, MG1, PT ####[facility] Uqhevjcubz8093 [place] [address] Troponin Ton 01-12-2021 Troponin T <0.010 Normal 0.000-0.029 [facility] Comment on above: Performed By: #### T NT ####[facility] Slybnokmad2599 [place] [address] Type and Screenon 01-12-2021 ABO/RH(D) Positive Normal [facility] Comment on above: Performed By: #### 5 7021-8 #### [facility] CLIA [id number] [address] [place] [address] [facility] Urinalysison 01-12-2021 Bilirubin, Urine Negative Normal Negative [facility] Comment on above: Performed By: #### U A, UAMIC ####[facility] Lmafveewhk[address] [place] [address] Clarity (U) Clear Normal Clear [facility] Comment on above: Performed By: #### U A, UAMIC ####[facility] Neddfuxovv2531 [place] [address] Color (U) Yellow Normal Yellow [facility] Comment on above: Performed By: #### U A, UAMIC ####[facility] [address] [place] [address] Glucose Ql (U) Negative Normal Negative [facility] Comment on above: Performed By: #### U A, UAMIC ####[facility] [address] [place] [address] Hemoglobin/Blood,Ur 2+ Critically abnormal Negative [facility] Comment on above: Performed By: #### U A, UAMIC ####[facility] [address] [place] [address] Ketones Ql (U) Negative Normal Negative [facility] Comment on above: Performed By: #### U A, UAMIC ####[facility] [address] [place] [address] Leukest 2+ Critically abnormal [facility] Comment on above: Performed By: #### U A, UAMIC ####[facility] [address] [place] [address] Nitrite Ql (U) Negative Normal Negative [facility] Comment on above: Performed By: #### U A, UAMIC ####[facility] [address] [place] [address] pH (U) 6.5 [pH] Normal 5.0-8.0 [facility] Comment on above: Performed By: #### U A, UAMIC ####[facility] [address] [place] [address] Protein, Urine Negative Normal Negative [facility] Comment on above: Performed By: #### U A, UAMIC ####[facility] [address] [place] [address] Specific [place], Ur 1.010 Normal 1.005-1.030 [facility] Comment on above: Performed By: #### U A, UAMIC ####[facility] [address] [place] [address] Urobilinogen Qn (U) 0.2 {Valentín'U}/dL Normal 0.2-1.0 [facility] Comment on above: Performed By: #### U A, UAMIC ####[facility] [address] [place], [place] [phone] Urine Microscopic (FOR LAB U SE ONLY)on 01-12-2021 Cast SEE COMMENT Normal 0 [facility] Comment on above: Result Comment: 0 Performed By: #### U A, UAMIC ####[facility] Jewhxcetwt9057 [address] Epithelial cells LM Ql (Urine sed) SEE COMMENT Normal [facility] Comment on above: Result Comment: 0-5 Squamous Epithelial Cells Performed By: #### U A, UAMIC ####[facility] [address] [place], [place] [phone] RBC 5-10 Critically abnormal 0-3 [facility] Comment on above: Performed By: #### U A, UAMIC ####[facility] [address] [place], [place] [phone] WBC 5-10 Critically abnormal 0-5 [facility] Comment on above: Performed By: #### U A, UAMIC ####[facility] [address] [place], [place] [phone] NM CARDIAC PERF STRESS/PHARM on 01-10-2021 NM CARDIAC PERF STRESS/PHARM * * *Final Report* * * DATE OF EXAM: Jan 10 2021 11:30AM HEATHER 0006 - NM CARDIAC PERF STRESS/PHARM / PROCEDURE REASON: multiple diagnoses * * * * Physician Interpretation * * * * Stress Controller Operations And Hr Manager Report: [facility] Date of service: 01/10/2021 9:33:53 AM Supervising [...] 60 minutes later. See administered doses below. [facility] Date of service: 01/10/2021 9:33:53 AM Indication: [...] unchanged with stress. Final Stress ECG Report: [facility] Date of service: 01/10/2021 9:33:53 AM Ordering physician: CECILIO IBARRA Specialist: Vira Odonnell Wellness Health Coach: Lisa Lemus Stress ECG interpreting physician: Amari [...] 125/48 mmHg. The double product achieved was [id number]. Indication: Dyspnea on exertion Medical History and [...] 52 +----+--+---+---+ +-----+ (more content not included)... [facility] 01-09-2021 [facility] Telephone (CDLBME) CHRISTIAN LANDRUM ([id number]) 1935 F Date Time Provider Department 01/09/21 LISA LEMUS [facility] During your visit today, we recorded the [...] Fully Assessed Reason for Visit: Reminder Call [[id number]] Prescriptions as of 01/09/2021 - omeprazole (PRILOSEC) [...] every Fri; 1 mg all other days - estradiol [...] BY MOUTH EVERY DAY - glucosamine/msm/chondroitin A (KUGSWRFZNVK-DCVIVI-TON ORAL) Take 1 capsule by mouth once [...] mg injection (BENADRYL) - benzocaine 20% 1 [place] (TOPEX) Meds Comments as of 12/27/2016: Problem List As Of Date 01/09 (more content not included)... Normal [facility] XR Chest PA and Lateralon IMPRESSION: Mild bibasilar atelectasis/scarring. Personnel Research Psychologist: GRANT Transcribe Date/Time: Nov 27 2020 4:34P Dictated by : DUC ZHONG MD This examination was interpreted and the report reviewed and electronically signed by: DUC ZHONG MD on Nov 27 2020 4:35PM [facility] DIVISION OF RADIOLOGY * * *Final Report* [...] the thoracic spine. DIVISION OF RADIOLOGY Provider, [facility] * * *Final Report* * [...] thoracic spine. IMPRESSION IMPRESSION: Mild bibasilar atelectasis/scarring. Personnel Research Psychologist: GRANT Transcribe Date/Time: Nov 27 2020 4:34P Dictated by : DUC ZHONG MD This examination was interpreted and the report reviewed and electronically signed by: DUC ZHONG MD on Nov 27 2020 4:35PM [facility] Radiology Study observation (narrative) [facility] XR Chest PA and LateralOrder ed By: Ccf Provider on 11-27-2020 [facility] XR Chest PA and Lateralon IMPRESSION: No acute radiographic abnormality. Personnel Research Psychologist: GRANT Transcribe Date/Time: May 05 2020 3:09P Dictated by : ALEJO GORDON MD This examination was interpreted and the report reviewed and electronically signed by: ALEJO GORDON MD on May 05 2020 3:20PM [facility] DIVISION OF RADIOLOGY * * *Final Report* [...] tissues: Unremarkable. DIVISION OF RADIOLOGY Provider, Sj ramirez [place] - 05/05/2020 * * *Final Report* * [...] Unremarkable. IMPRESSION IMPRESSION: No acute radiographic abnormality. Personnel Research Psychologist: GRANT Transcribe Date/Time: May 05 2020 3:09P Dictated by : ALEJO GORDON MD This examination was interpreted and the report reviewed and electronically signed by: ALEJO GORDON MD on May 05 2020 3:20PM EST [facility] Radiology Study observation (narrative) [facility] XR Chest PA and LateralOrder ed By: Ccf Provider on 05-05-2020 [facility] BD DXA - AXIAL SKELETONon BD DXA - AXIAL SKELETON Final Report DATE OF EXAM: Oct 20 2019 11:23AM LDX 0804 - BD DXA - AXIAL SKELETON / PROCEDURE REASON: multiple diagnoses Physician Interpretation EXAM TITLE: BONE MINERAL DENSITOMETRY COMPARISON:None CLINICAL INDICATION/HISTORY: Postmenopausal TECHNIQUE: DXA Appature-CureVac v,11.4 examination was performed on the lumbar [...] at high risk for accelerated bone loss). Personnel Research Psychologist: GRANT Transcribe Date/Time: Oct 21 2019 11:35A Dictated by : IVORY BENAVIDES MD This examination was interpreted and the report reviewed and electronically signed by: IVORY BENAVIDES MD on Oct 21 2019 11:36AM EST Normal [facility] Culture, urine Bacteria identified Cx Nom (U) Culture exhibits no growth. [facility] Work Phone: No Panel Information [facility] Vital Signs Date Time Vital Sign Value Performing Clinician Facility 10-22-2024 13:55-0400 Body height 162.[address] Galina Iraheta MD Work Phone: [facility] 10-22-2024 13:55-0400 Body mass index (BMI) [Ratio] 30.4 kg/m2 Dr. Galina Iraheta MD Work Phone: [facility] 10-22-2024 13:55-0400 Body weight 80.[address] Galina Iraheta MD Work Phone: [facility] 09-21-2024 13:31-0400 Body temperature 96.91 [degF] Cassidy Arreola APRN.CHASSIS INSPECTOR Work Phone: [facility] 09-21-2024 13:31-0400 Diastolic blood pressure 64 mm[Hg] Cassidy Arreola MOTOR ROOM CONTROLLER.CHASSIS INSPECTOR Work Phone: [facility] 09-21-2024 13:31-0400 Heart rate 75 /min Cassidy Arreola MOTOR ROOM CONTROLLER.CHASSIS INSPECTOR Work Phone: [facility] 09-21-2024 13:31-0400 SaO2% (BldA) [Mass fraction] 97 % Cassidy Arreola MOTOR ROOM CONTROLLER.CHASSIS INSPECTOR Work Phone: [facility] 09-21-2024 13:31-0400 Systolic blood pressure 130 mm[Hg] Cassidy Arreola MOTOR ROOM CONTROLLER.CHASSIS INSPECTOR Work Phone: [facility] 09-14-2024 07:57-0400 Body temperature 97.6 [degF] Dr. Galina Iraheta MD Work Phone: 1(314)571-224609 [place] [address] 09-14-2024 07:57-0400 Diastolic blood pressure 75 mm[Hg] Dr. Galina Iraheta MD Work Phone: 1(173)802-582309 [place] [address] 09-14-2024 07:57-0400 Heart rate 82 /min Dr. Galina Iraheta MD Work Phone: 4(962)277-818009 [place] [address] 09-14-2024 07:57-0400 Respiratory rate 18 /min Dr. Galina Iraheta MD Work Phone: 3(499)501-866709 [place] [address] 09-14-2024 07:57-0400 SaO2% (BldA) [Mass fraction] 96 % Dr. Galina Iraheta MD Work Phone: 4(759)139-848709 [place] [address] 09-14-2024 07:57-0400 Systolic blood pressure 138 mm[Hg] Dr. Galina Iraheta MD Work Phone: 3(997)039-197509 [place] [address] 09-14-2024 05:45-0400 Body height 162.[address] Galina Iraheta MD Work Phone: 1(829)924-592209 [place] [address] 09-14-2024 05:45-0400 Body mass index (BMI) [Ratio] 30.4 kg/m2 Dr. Galina Iraheta MD Work Phone: 0(459)704-042609 [place] [address] 09-14-2024 05:45-0400 Body weight 80.[address] Galina Iraheta MD Work Phone: 9(591)690-958609 [place] [address] 09-07-2024 15:01-0400 Body temperature 97.4 [degF] Dr. Galina Iraheta MD Work Phone: 7(187)445-311509 [place] [address] 09-07-2024 15:01-0400 Diastolic blood pressure 75 mm[Hg] Dr. Galina Iraheta MD Work Phone: 0(987)392-979509 [place] [address] 09-07-2024 15:01-0400 Heart rate 71 /min Dr. Galina Iraheta MD Work Phone: 9(462)078-266709 [place] [address] 09-07-2024 15:01-0400 Respiratory rate 18 /min Dr. Galina Iraheta MD Work Phone: 3(011)659-448609 [place] [address] 09-07-2024 15:01-0400 SaO2% (BldA) [Mass fraction] 95 % Dr. Galina Iraheta MD Work Phone: 0(625)065-400409 [place] [address] 09-07-2024 15:01-0400 Systolic blood pressure 164 mm[Hg] Dr. Galina Iraheta MD Work Phone: 4(634)021-543509 [place] [address] 09-03-2024 14:12-0400 Body height 165.[address] Galina Iraheta MD Work Phone: 3(055)601-966009 [place] [address] 08-18-2024 14:34-0400 Body height 165.[address] Galina Iraheta MD Work Phone: 2(695)864-478109 [place] [address] 08-18-2024 14:34-0400 Body mass index (BMI) [Ratio] 29.1 kg/m2 Dr. Galina Iraheta MD Work Phone: 1(811)186-909409 [place] [address] 08-18-2024 14:34-0400 Body weight 79.[address] Galina Iraheta MD Work Phone: 6(717)877-237709 [place] [address] 08-13-2024 13:10-0400 Body height 165.[address] Galina Iraheta MD Work Phone: 8(091)930-054709 [place] [address] 03-12-2024 14:00-0500 Body temperature 98.91 [degF] [facility] Work Phone: 5(414)807-661306 [place] [address] 03-12-2024 14:00-0500 Diastolic blood pressure 73 mm[Hg] [facility] Work Phone: 6(377)537-956806 [place] [address] 03-12-2024 14:00-0500 Heart rate 68 /min [facility] Work Phone: 7(218)720-698906 [place] [address] 03-12-2024 14:00-0500 Systolic blood pressure 135 mm[Hg] [facility] Work Phone: 4(036)752-028706 [place] [address] 02-27-2024 14:58-0500 Body mass index (BMI) [Ratio] 31.12 kg/m2 [facility] Work Phone: [facility] 02-27-2024 14:58-0500 Body temperature 98.6 [degF] [facility] Work Phone: [facility] 02-27-2024 14:58-0500 Body weight 84.82 kg Treatment [facility] Work Phone: [facility] 02-27-2024 14:58-0500 Diastolic blood pressure 78 mm[Hg] [facility] Work Phone: [facility] 02-27-2024 14:58-0500 Heart rate 84 /min [facility] Work Phone: [facility] 02-27-2024 14:58-0500 SaO2% (BldA) [Mass fraction] 97 % [facility] Work Phone: [facility] 02-27-2024 14:58-0500 Systolic blood pressure 132 mm[Hg] [facility] Work Phone: [facility] 02-24-2024 14:01-0500 Body mass index (BMI) [Ratio] 31.12 kg/m2 Cassidy Arreola MOTOR ROOM CONTROLLER.CHASSIS INSPECTOR Work Phone: [facility] 02-24-2024 14:01-0500 Body temperature 98.49 [degF] Cassidy Arreola MOTOR ROOM CONTROLLER.CHASSIS INSPECTOR Work Phone: [facility] 02-24-2024 14:01-0500 Body weight 84.82 kg Cassidy Arreola MOTOR ROOM CONTROLLER.CHASSIS INSPECTOR Work Phone: [facility] 02-24-2024 14:01-0500 Diastolic blood pressure 73 mm[Hg] Cassidy Arreola MOTOR ROOM CONTROLLER.CHASSIS INSPECTOR Work Phone: [facility] 02-24-2024 14:01-0500 Heart rate 87 /min Cassidy Arreola MOTOR ROOM CONTROLLER.CHASSIS INSPECTOR Work Phone: [facility] 02-24-2024 14:01-0500 SaO2% (BldA) [Mass fraction] 97 % Cassidy Arreola MOTOR ROOM CONTROLLER.CHASSIS INSPECTOR Work Phone: [facility] 02-24-2024 14:01-0500 Systolic blood pressure 125 mm[Hg] Cassidy Arreola CHASSIS INSPECTOR Work Phone: [facility] 02-24-2024 13:20-0500 Body mass index (BMI) [Ratio] 31.12 kg/m2 [facility] Work Phone: [facility] 02-24-2024 13:20-0500 Body weight 84.82 kg Lab[facility] Work Phone: [facility] 01-28-2024 11:06-0500 Body mass index (BMI) [Ratio] 30.41 kg/m2 [facility] Work Phone: [facility] 01-28-2024 11:06-0500 Body temperature 97.59 [degF] [facility] Work Phone: [facility] 01-28-2024 11:06-0500 Body weight 82.9 kg Treatment [facility] Work Phone: [facility] 01-28-2024 11:06-0500 Diastolic blood pressure 66 mm[Hg] [facility] Work Phone: [facility] 01-28-2024 11:06-0500 Heart rate 79 /min Treatment [facility] Work Phone: [facility] 01-28-2024 11:06-0500 Respiratory rate 18 /min [facility] Work Phone: [facility] 01-28-2024 11:06-0500 SaO2% (BldA) [Mass fraction] 96 % [facility] Work Phone: [facility] 01-28-2024 11:06-0500 Systolic blood pressure 124 mm[Hg] [facility] Work Phone: [facility] 12-11-2023 08:55-0400 Body temperature 98.01 [degF] [facility] Work Phone: [facility] 12-11-2023 08:55-0400 Diastolic blood pressure 68 mm[Hg] Treatment [facility] Work Phone: [facility] 12-11-2023 08:55-0400 Heart rate 78 /min Treatment [facility] Work Phone: [facility] 12-11-2023 08:55-0400 Respiratory rate 14 /min Treatment [facility] Work Phone: [facility] 12-11-2023 08:55-0400 SaO2% (BldA) [Mass fraction] 98 % [facility] Work Phone: [facility] 12-11-2023 08:55-0400 Systolic blood pressure 126 mm[Hg] Treatment [facility] Work Phone: [facility] 12-04-2023 08:11-0400 Body temperature 98.4 [degF] Treatment [facility] Work Phone: [facility] 12-04-2023 08:11-0400 Diastolic blood pressure 71 mm[Hg] Treatment [facility] Work Phone: [facility] 12-04-2023 08:11-0400 Heart rate 74 /min Treatment [facility]str Work Phone: [facility] 12-04-2023 08:11-0400 Respiratory rate 16 /min Treatment [facility]str Work Phone: [facility] 12-04-2023 08:11-0400 Systolic blood pressure 115 mm[Hg] Treatment [facility] Work Phone: [facility] 10-09-2023 10:49-0400 Body mass index (BMI) [Ratio] 30.35 kg/m2 [facility] Work Phone: [facility] 10-09-2023 10:49-0400 Body temperature 98.2 [degF] Treatment [facility] Work Phone: [facility] 10-09-2023 10:49-0400 Body weight 82.74 kg Treatment [facility]str Work Phone: [facility] 10-09-2023 10:49-0400 Diastolic blood pressure 70 mm[Hg] Treatment [facility]str Work Phone: [facility] 10-09-2023 10:49-0400 Heart rate 94 /min Treatment [facility]str Work Phone: [facility] 10-09-2023 10:49-0400 Respiratory rate 16 /min Treatment [facility]str Work Phone: [facility] 10-09-2023 10:49-0400 SaO2% (BldA) [Mass fraction] 97 % [facility] Work Phone: [facility] 10-09-2023 10:49-0400 Systolic blood pressure 142 mm[Hg] Treatment [facility] Work Phone: [facility] 09-12-2023 11:10-0400 Body temperature 97.81 [degF] Treatment [facility] Work Phone: [facility] 09-12-2023 11:10-0400 Diastolic blood pressure 61 mm[Hg] Treatment [facility] Work Phone: [facility] 09-12-2023 11:10-0400 Heart rate 90 /min Treatment [facility] Work Phone: [facility] 09-12-2023 11:10-0400 Respiratory rate 16 /min Treatment [facility] Work Phone: [facility] 09-12-2023 11:10-0400 Systolic blood pressure 136 mm[Hg] Treatment [facility] Work Phone: [facility] 08-28-2023 11:00-0400 Body temperature 98.8 [degF] Treatment [facility] Work Phone: [facility] 08-28-2023 11:00-0400 Diastolic blood pressure 56 mm[Hg] Treatment [facility] Work Phone: [facility] 08-28-2023 11:00-0400 Heart rate 86 /min Treatment [facility] Work Phone: [facility] 08-28-2023 11:00-0400 Systolic blood pressure 130 mm[Hg] Treatment [facility] Work Phone: [facility] 08-19-2023 11:01-0400 Body temperature 98.71 [degF] Cassidy Arreola APRN.CHASSIS INSPECTOR Work Phone: [facility] 08-19-2023 11:01-0400 Diastolic blood pressure 66 mm[Hg] Cassidy Arreola MOTOR ROOM CONTROLLER.CHASSIS INSPECTOR Work Phone: [facility] 08-19-2023 11:01-0400 Heart rate 87 /min Cassidy Arreola MOTOR ROOM CONTROLLER.CHASSIS INSPECTOR Work Phone: [facility] 08-19-2023 11:01-0400 SaO2% (BldA) [Mass fraction] 97 % Cassidy Arreola MOTOR ROOM CONTROLLER.CHASSIS INSPECTOR Work Phone: [facility] 08-19-2023 11:01-0400 Systolic blood pressure 131 mm[Hg] Cassidy Arreola MOTOR ROOM CONTROLLER.CHASSIS INSPECTOR Work Phone: [facility] 07-15-2023 14:28-0400 Body height 165.1 cm Vikash Sylvester MOTOR ROOM CONTROLLER.CHASSIS INSPECTOR Work Phone: [facility] 07-15-2023 14:28-0400 Body mass index (BMI) [Ratio] 29.79 kg/m2 Vikash Sylvester MOTOR ROOM CONTROLLER.CHASSIS INSPECTOR Work Phone: [facility] 07-15-2023 14:28-0400 Body weight 81.19 kg Vikash Sylvester MOTOR ROOM CONTROLLER.CHASSIS INSPECTOR Work Phone: [facility] 07-15-2023 14:28-0400 Diastolic blood pressure 84 mm[Hg] Vikash Sylvester MOTOR ROOM CONTROLLER.CHASSIS INSPECTOR Work Phone: [facility] 07-15-2023 14:28-0400 Systolic blood pressure 122 mm[Hg] Vikash Sylvester MOTOR ROOM CONTROLLER.CHASSIS INSPECTOR Work Phone: [facility] 07-04-2023 11:28-0400 Body weight 80.92 kg Thalia Monterroso MD Work Phone: [facility] 07-04-2023 11:28-0400 Diastolic blood pressure 65 mm[Hg] Thalia Monterroso MD Work Phone: [facility] 07-04-2023 11:28-0400 Heart rate 80 /min Thalia Monterroso MD Work Phone: [facility] 07-04-2023 11:28-0400 Systolic blood pressure 141 mm[Hg] Thalia Monterroso MD Work Phone: [facility] 06-16-2023 14:16-0400 Body weight 82.1 kg Cecilio Jamestyree DO Work Phone: [facility] 06-16-2023 14:16-0400 Diastolic blood pressure 68 mm[Hg] Cecilio Ibarra DO Work Phone: [facility] 06-16-2023 14:16-0400 Heart rate 79 /min Cecilio Ibarra DO Work Phone: [facility] 06-16-2023 14:16-0400 SaO2% (BldA) [Mass fraction] 96 % Cecilio Meenakshichristiano DO Work Phone: [facility] 06-16-2023 14:16-0400 Systolic blood pressure 126 mm[Hg] Cecilio Ibarra DO Work Phone: [facility] 04-07-2023 13:01-0500 Body height 165.[address] Galina Iraheta Work Phone: [facility] 02-11-2023 10:15-0500 Body temperature 97.9 [degF] Cassidy Arreola MOTOR ROOM CONTROLLER.CHASSIS INSPECTOR Work Phone: [facility] 02-11-2023 10:15-0500 Body weight 80.74 kg Cassidy Arreola MOTOR ROOM CONTROLLER.CHASSIS INSPECTOR Work Phone: [facility] 02-11-2023 10:15-0500 Diastolic blood pressure 70 mm[Hg] [place] Arreola MOTOR ROOM CONTROLLER.CHASSIS INSPECTOR Work Phone: [facility] 02-11-2023 10:15-0500 Heart rate 62 /min Cassidy Arreola MOTOR ROOM CONTROLLER.CHASSIS INSPECTOR Work Phone: [facility] 02-11-2023 10:15-0500 SaO2% (BldA) [Mass fraction] 99 % Cassidy Arreola MOTOR ROOM CONTROLLER.CHASSIS INSPECTOR Work Phone: [facility] 02-11-2023 10:15-0500 Systolic blood pressure 124 mm[Hg] [place] Arreola MOTOR ROOM CONTROLLER.CHASSIS INSPECTOR Work Phone: [facility] 12-13-2022 14:31-0400 Body height 167.6 cm Juliet Gaffney APRN.CHASSIS INSPECTOR Work Phone: [facility] 12-13-2022 14:31-0400 Body weight 79.38 kg Juliet Gaffney APRN.CHASSIS INSPECTOR Work Phone: [facility] 12-13-2022 14:31-0400 Diastolic blood pressure 60 mm[Hg] Juliet Gaffney APRN.CHASSIS INSPECTOR Work Phone: [facility] 12-13-2022 14:31-0400 Heart rate 68 /min Juliet Gaffney APRN.CHASSIS INSPECTOR Work Phone: [facility] 12-13-2022 14:31-0400 SaO2% (BldA) [Mass fraction] 97 % Juliet Gaffney APRN.CHASSIS INSPECTOR Work Phone: [facility] 12-13-2022 14:31-0400 Systolic blood pressure 130 mm[Hg] Juliet Gaffney APRN.CHASSIS INSPECTOR Work Phone: [facility] 09-05-2022 09:20-0400 Body height 167.6 cm Cecilio Ibarra DO Work Phone: [facility] 09-05-2022 09:20-0400 Body weight 78.02 kg Cecilio Ibarra DO Work Phone: [facility] 09-05-2022 09:20-0400 Diastolic blood pressure 64 mm[Hg] Cecilio Amalfitprecious DO Work Phone: [facility] 09-05-2022 09:20-0400 Heart rate 69 /min Cecilio Arrietafitprecious DO Work Phone: [facility] 09-05-2022 09:20-0400 Systolic blood pressure 124 mm[Hg] Cecilio Arrietafitprecious DO Work Phone: [facility] 08-27-2022 11:27-0400 Body temperature 98.4 [degF] Cassidy Arreola MOTOR ROOM CONTROLLER.CHASSIS INSPECTOR Work Phone: [facility] 08-27-2022 11:27-0400 Body weight 76.66 kg [place] Arreola MOTOR ROOM CONTROLLER.CHASSIS INSPECTOR Work Phone: [facility] 08-27-2022 11:27-0400 Diastolic blood pressure 56 mm[Hg] [place] Arreola MOTOR ROOM CONTROLLER.CHASSIS INSPECTOR Work Phone: [facility] 08-27-2022 11:27-0400 Heart rate 73 /min Cassidy Arreola MOTOR ROOM CONTROLLER.CHASSIS INSPECTOR Work Phone: [facility] 08-27-2022 11:27-0400 SaO2% (BldA) [Mass fraction] 96 % Cassidy Arreola MOTOR ROOM CONTROLLER.CHASSIS INSPECTOR Work Phone: [facility] 08-27-2022 11:27-0400 Systolic blood pressure 116 mm[Hg] Cassidy Arreola MOTOR ROOM CONTROLLER.CHASSIS INSPECTOR Work Phone: [facility] 06-05-2022 11:03-0400 Body temperature 97.81 [degF] [place] Arreola MOTOR ROOM CONTROLLER.CHASSIS INSPECTOR Work Phone: [facility] 06-05-2022 11:03-0400 Body weight 77.34 kg Cassidy Arreola MOTOR ROOM CONTROLLER.CHASSIS INSPECTOR Work Phone: [facility] 06-05-2022 11:03-0400 Diastolic blood pressure 54 mm[Hg] [place] Arreola MOTOR ROOM CONTROLLER.CHASSIS INSPECTOR Work Phone: [facility] 06-05-2022 11:03-0400 Heart rate 74 /min Cassidy Arreola MOTOR ROOM CONTROLLER.CHASSIS INSPECTOR Work Phone: [facility] 06-05-2022 11:03-0400 SaO2% (BldA) [Mass fraction] 97 % Cassidy Arreola MOTOR ROOM CONTROLLER.CHASSIS INSPECTOR Work Phone: [facility] 06-05-2022 11:03-0400 Systolic blood pressure 116 mm[Hg] [place] Arreola MOTOR ROOM CONTROLLER.CHASSIS INSPECTOR Work Phone: [facility] 04-17-2022 09:47-0500 Body temperature 97.9 [degF] Treatment [facility] Work Phone: [facility] 04-17-2022 09:47-0500 Diastolic blood pressure 60 mm[Hg] Treatment [facility] Work Phone: [facility] 04-17-2022 09:47-0500 Heart rate 77 /min Treatment [facility]str Work Phone: [facility] 04-17-2022 09:47-0500 SaO2% (BldA) [Mass fraction] 97 % Treatment [facility] Work Phone: [facility] 04-17-2022 09:47-0500 Systolic blood pressure 126 mm[Hg] Treatment [facility]str Work Phone: [facility] 04-15-2022 14:39-0500 Body temperature 97.2 [degF] Treatment [facility]str Work Phone: [facility] 04-15-2022 14:39-0500 Diastolic blood pressure 62 mm[Hg] Treatment [facility]str Work Phone: [facility] 04-15-2022 14:39-0500 Heart rate 68 /min Treatment [facility]str Work Phone: [facility] 04-15-2022 14:39-0500 Respiratory rate 16 /min Treatment [facility]str Work Phone: [facility] 04-15-2022 14:39-0500 Systolic blood pressure 135 mm[Hg] Treatment [facility]str Work Phone: [facility] 04-12-2022 13:55-0500 Body temperature 97.7 [degF] Treatment [facility]str Work Phone: [facility] 04-12-2022 13:55-0500 Diastolic blood pressure 47 mm[Hg] Treatment [facility]str Work Phone: [facility] 04-12-2022 13:55-0500 Heart rate 71 /min Treatment [facility]str Work Phone: [facility] 04-12-2022 13:55-0500 Systolic blood pressure 119 mm[Hg] Treatment [facility]str Work Phone: [facility] 04-10-2022 10:54-0500 Body temperature 97.3 [degF] Treatment [facility]str Work Phone: [facility] 04-10-2022 10:54-0500 Diastolic blood pressure 54 mm[Hg] Treatment [facility]str Work Phone: [facility] 04-10-2022 10:54-0500 Heart rate 78 /min Treatment [facility]str Work Phone: [facility] 04-10-2022 10:54-0500 Systolic blood pressure 134 mm[Hg] Treatment [facility]str Work Phone: [facility] 04-09-2022 14:29-0500 Body height 167.6 cm Taty Perez APRN.CHASSIS INSPECTOR Work Phone: [facility] 04-09-2022 14:29-0500 Body weight 76.66 kg Taty Perez APRN.CHASSIS INSPECTOR Work Phone: [facility] 04-09-2022 14:29-0500 Diastolic blood pressure 58 mm[Hg] Taty Perez MOTOR ROOM CONTROLLER.CHASSIS INSPECTOR Work Phone: [facility] 04-09-2022 14:29-0500 Heart rate 75 /min Taty Perez APRN.CHASSIS INSPECTOR Work Phone: [facility] 04-09-2022 14:29-0500 SaO2% (BldA) [Mass fraction] 98 % Taty Perez MOTOR ROOM CONTROLLER.CHASSIS INSPECTOR Work Phone: [facility] 04-09-2022 14:29-0500 Systolic blood pressure 118 mm[Hg] Taty Perez APRN.CHASSIS INSPECTOR Work Phone: [facility] 04-08-2022 11:01-0500 Body temperature 97.3 [degF] Treatment Wstr Work Phone: [facility] 04-08-2022 11:01-0500 Diastolic blood pressure 57 mm[Hg] Treatment Wstr Work Phone: [facility] 04-08-2022 11:01-0500 Heart rate 79 /min Treatment Wstr Work Phone: [facility] 04-08-2022 11:01-0500 Systolic blood pressure 125 mm[Hg] Treatment Wstr Work Phone: [facility] 03-06-2022 14:21-0500 Body temperature 97.11 [degF] Cassidy Arreola MOTOR ROOM CONTROLLER.CHASSIS INSPECTOR Work Phone: [facility] 03-06-2022 14:21-0500 Body weight 76.43 kg Cassidy Arreola MOTOR ROOM CONTROLLER.CHASSIS INSPECTOR Work Phone: [facility] 03-06-2022 14:21-0500 Diastolic blood pressure 57 mm[Hg] Cassidy Blackmonenter MOTOR ROOM CONTROLLER.CHASSIS INSPECTOR Work Phone: [facility] 03-06-2022 14:21-0500 Heart rate 72 /min Cassidy Blackmonenter MOTOR ROOM CONTROLLER.CHASSIS INSPECTOR Work Phone: [facility] 03-06-2022 14:21-0500 SaO2% (BldA) [Mass fraction] 100 % Cassidy Arreola MOTOR ROOM CONTROLLER.CHASSIS INSPECTOR Work Phone: [facility] 03-06-2022 14:21-0500 Systolic blood pressure 119 mm[Hg] Cassidy Arreola MOTOR ROOM CONTROLLER.CHASSIS INSPECTOR Work Phone: [facility] 03-06-2022 13:44-0500 Body temperature 97 [degF] Dr. Galina Iraheta Work Phone: [facility] 03-06-2022 13:44-0500 Diastolic blood pressure 64 mm[Hg] Dr. Galina Iraheta Work Phone: [facility] 03-06-2022 13:44-0500 Heart rate 68 /min Dr. Galina Iraheta Work Phone: [facility] 03-06-2022 13:44-0500 Respiratory rate 16 /min Dr. Galina Iraheta Work Phone: [facility] 03-06-2022 13:44-0500 SaO2% (BldA) [Mass fraction] 99 % Dr. Galina Iraheta Work Phone: [facility] 03-06-2022 13:44-0500 Systolic blood pressure 132 mm[Hg] Dr. Galina Iraheta Work Phone: [facility] 03-06-2022 08:50-0500 Body height 165.[address] Galina Iraheta Work Phone: [facility] 03-06-2022 08:50-0500 Body mass index (BMI) [Ratio] 27.3 kg/m2 Dr. Galina Iraheta Work Phone: [facility] 03-06-2022 08:50-0500 Body weight 74.[address] Galina Iraheta Work Phone: [facility] 01-02-2022 13:31-0400 Body height 167.6 cm Basilia Hernández MD Work Phone: [facility] 01-02-2022 13:31-0400 Body weight 74.84 kg Basilia Hernández MD Work Phone: [facility] 01-02-2022 13:31-0400 Diastolic blood pressure 62 mm[Hg] Basilia Hernández MD Work Phone: [facility] 01-02-2022 13:31-0400 Systolic blood pressure 126 mm[Hg] Basilia Hernández MD Work Phone: [facility] 12-28-2021 15:09-0400 Body temperature 98.9 [degF] Dr. Galina Iraheta Work Phone: [facility] 12-28-2021 15:09-0400 Diastolic blood pressure 79 mm[Hg] Dr. Galina Iraheta Work Phone: [facility] 12-28-2021 15:09-0400 Heart rate 70 /min Dr. Galina Iraheta Work Phone: [facility] 12-28-2021 15:09-0400 Respiratory rate 16 /min Dr. Galina Iraheta Work Phone: [facility] 12-28-2021 15:09-0400 SaO2% (BldA) [Mass fraction] 94 % Dr. Glaina Iraheta Work Phone: [facility] 12-28-2021 15:09-0400 Systolic blood pressure 125 mm[Hg] Dr. Galina Iraheta Work Phone: [facility] 12-28-2021 11:18-0400 Body height 165.[address] Galina Iraheta Work Phone: [facility] Work Phone: 12-28-2021 11:18-0400 Body mass index (BMI) [Ratio] 27.4 kg/m2 Dr. Galina Iraheta Work Phone: [facility] 12-28-2021 11:18-0400 Body weight 74.[address] Galina Iraheta Work Phone: [facility] 10-18-2021 18:15-0400 Diastolic blood pressure 68 mm[Hg] [facility] Work Phone: 10-18-2021 18:15-0400 Heart rate 74 /min [facility] Work Phone: 10-18-2021 18:15-0400 Respiratory rate 13 /min [facility] Work Phone: 10-18-2021 18:15-0400 SaO2% (BldA) [Mass fraction] 99 % [facility] Work Phone: 10-18-2021 18:15-0400 Systolic blood pressure 134 mm[Hg] [facility] Work Phone: 10-18-2021 17:15-0400 Body temperature 98.7 [degF] [facility] Work Phone: 10-18-2021 09:50-0400 Body height 167.64 cm [facility] Work Phone: 10-18-2021 09:50-0400 Body mass index (BMI) [Ratio] 27.4 kg/m2 [facility] Work Phone: 10-18-2021 09:50-0400 Body weight 77.11 kg [facility] Work Phone: 10-11-2021 07:56-0400 Body temperature 98.01 [degF] Jeancarlos Hooker MD Work Phone: [facility] 10-11-2021 07:56-0400 Body weight 77.56 kg Jeancarlos Hooker MD Work Phone: [facility] 10-11-2021 07:56-0400 Diastolic blood pressure 48 mm[Hg] Jeancarlos Hooker MD Work Phone: [facility] 10-11-2021 07:56-0400 Heart rate 78 /min Jeancarlos Hooker MD Work Phone: [facility] 10-11-2021 07:56-0400 Respiratory rate 16 /min Jeancarlos Hooker MD Work Phone: [facility] 10-11-2021 07:56-0400 SaO2% (BldA) [Mass fraction] 100 % Jeancarlos Hooker MD Work Phone: [facility] 10-11-2021 07:56-0400 Systolic blood pressure 115 mm[Hg] Jeancarlos Hooker MD Work Phone: [facility] 09-26-2021 14:00-0400 Body height 167.6 cm Basilia Hernández MD Work Phone: [facility] 09-26-2021 14:00-0400 Body weight 77.11 kg Basilia Hernández MD Work Phone: [facility] 09-18-2021 09:15-0400 Body temperature 97.39 [degF] Cassidy Arreola MOTOR ROOM CONTROLLER.CHASSIS INSPECTOR Work Phone: [facility] 09-18-2021 09:15-0400 Body weight 77.11 kg Cassidy Arreola MOTOR ROOM CONTROLLER.CHASSIS INSPECTOR Work Phone: [facility] 09-18-2021 09:15-0400 Diastolic blood pressure 47 mm[Hg] Cassidy Arreola MOTOR ROOM CONTROLLER.CHASSIS INSPECTOR Work Phone: [facility] 09-18-2021 09:15-0400 Heart rate 75 /min Cassidysuhas Arreola MOTOR ROOM CONTROLLER.CHASSIS INSPECTOR Work Phone: [facility] 09-18-2021 09:15-0400 Systolic blood pressure 108 mm[Hg] Cassidy Arreola MOTOR ROOM CONTROLLER.CHASSIS INSPECTOR Work Phone: [facility] 09-18-2021 09:12-0400 Body weight 77.25 kg Lab/[facility] Work Phone: [facility] 09-11-2021 10:39-0400 Body weight 76.66 kg Jayde Hebert MD Work Phone: [facility] 09-11-2021 10:39-0400 Diastolic blood pressure 58 mm[Hg] Jayde Hebert MD Work Phone: [facility] 09-11-2021 10:39-0400 Systolic blood pressure 124 mm[Hg] Jayde Hebert MD Work Phone: [facility] 09-05-2021 13:15-0400 Body height 167.6 cm Cecilio Amalfitano DO Work Phone: [facility] 09-05-2021 13:15-0400 Body weight 77.66 kg Cecilio Amalfitano DO Work Phone: [facility] 09-05-2021 13:15-0400 Diastolic blood pressure 54 mm[Hg] Cecilio Amalfitano DO Work Phone: [facility] 09-05-2021 13:15-0400 Heart rate 73 /min Cecilio Amalfitano DO Work Phone: [facility] 09-05-2021 13:15-0400 SaO2% (BldA) [Mass fraction] 97 % Cecilio Amalfitano DO Work Phone: [facility] 09-05-2021 13:15-0400 Systolic blood pressure 104 mm[Hg] Cecilio Amalfitano DO Work Phone: [facility] 08-30-2021 13:17-0400 Body weight 78.47 kg Jayde Hebert MD Work Phone: [facility] 08-26-2021 14:42-0400 Heart rate 76 /min [facility] Work Phone: 08-26-2021 14:42-0400 Respiratory rate 17 /min [facility] Work Phone: 08-26-2021 14:42-0400 SaO2% (BldA) [Mass fraction] 97 % [facility] Work Phone: 08-26-2021 13:01-0400 Diastolic blood pressure 49 mm[Hg] [facility] Work Phone: 08-26-2021 13:01-0400 Systolic blood pressure 111 mm[Hg] [facility] Work Phone: 08-26-2021 12:13-0400 Body height 167.64 cm [facility] Work Phone: 08-26-2021 12:13-0400 Body mass index (BMI) [Ratio] 27.6 kg/m2 [facility] Work Phone: 08-26-2021 12:13-0400 Body temperature 98.1 [degF] [facility] Work Phone: 08-26-2021 12:13-0400 Body weight 77.56 kg [facility] Work Phone: 08-23-2021 15:21-0400 Body temperature 98 [degF] [facility] Work Phone: 08-23-2021 15:21-0400 Diastolic blood pressure 41 mm[Hg] [facility] Work Phone: 08-23-2021 15:21-0400 Heart rate 72 /min [facility] Work Phone: 08-23-2021 15:21-0400 Respiratory rate 16 /min [facility] Work Phone: 08-23-2021 15:21-0400 SaO2% (BldA) [Mass fraction] 96 % [facility] Work Phone: 08-23-2021 15:21-0400 Systolic blood pressure 105 mm[Hg] [facility] Work Phone: 08-23-2021 12:240400 Body height 167.64 cm [facility] Work Phone: 08-23-2021 12:240400 Body mass index (BMI) [Ratio] 27.8 kg/m2 [facility] Work Phone: 08-23-2021 12:24040 Body weight 78.1 kg [facility] Work Phone: 08-15-2021 16:[id number] Body weight 78.47 kg Jayde Hebert MD Work Phone: [facility] 08-15-2021 16:04-0400 Diastolic blood pressure 58 mm[Hg] Jayde Hebert MD Work Phone: [facility] 08-15-2021 16:04-0400 Systolic blood pressure 118 mm[Hg] Jayde Hebert MD Work Phone: [facility] 08-08-2021 14:10-0400 Body weight 78.02 kg An 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 Work Phone: [facility] 08-08-2021 14:10-0400 Diastolic blood pressure 66 mm[Hg] An 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 Work Phone: [facility] 08-08-2021 14:10-0400 Heart rate 68 /min An 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 Work Phone: [facility] 08-08-2021 14:10-0400 Respiratory rate 16 /min An 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 Work Phone: [facility] 08-08-2021 14:10-0400 Systolic blood pressure 116 mm[Hg] An 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 Work Phone: [facility] 07-05-2021 09:41-0400 Body height 167.6 cm Johnny Turk MD Work Phone: [facility] 07-05-2021 09:41-0400 Body temperature 98.6 [degF] Johnny Turk MD Work Phone: [facility] 07-05-2021 09:41-0400 Body weight 79.83 kg Johnny Turk MD Work Phone: [facility] 07-05-2021 09:41-0400 Diastolic blood pressure 60 mm[Hg] Johnny Truk MD Work Phone: [facility] 07-05-2021 09:41-0400 Heart rate 69 /min Johnny Turk MD Work Phone: [facility] 07-05-2021 09:41-0400 SaO2% (BldA) [Mass fraction] 100 % Johnny Turk MD Work Phone: [facility] 07-05-2021 09:41-0400 Systolic blood pressure 106 mm[Hg] Johnny Turk MD Work Phone: [facility] 07-03-2021 11:58-0400 Body temperature 98.4 [degF] Alma 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 Work Phone: [facility] 07-03-2021 11:58-0400 Body weight 78.93 kg Alma 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 Work Phone: [facility] 07-03-2021 11:58-0400 Diastolic blood pressure 64 mm[Hg] Alma 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 Work Phone: [facility] 07-03-2021 11:58-0400 Heart rate 67 /min Alma 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 Work Phone: [facility] 07-03-2021 11:58-0400 Respiratory rate 12 /min Alma 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 Work Phone: [facility] 07-03-2021 11:58-0400 SaO2% (BldA) [Mass fraction] 97 % 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 Work Phone: [facility] 07-03-2021 11:58-0400 Systolic blood pressure 118 mm[Hg] Alma Ta APRNFrederickCHASSIS INSPECTOR Work Phone: [facility] 07-03-2021 04:44-0400 Diastolic blood pressure 64 mm[Hg] [facility] Work Phone: 07-03-2021 04:44-0400 Heart rate 69 /min [facility] Work Phone: 07-03-2021 04:44-0400 Respiratory rate 18 /min [facility] Work Phone: 07-03-2021 04:44-0400 SaO2% (BldA) [Mass fraction] 96 % [facility] Work Phone: 07-03-2021 04:44-0400 Systolic blood pressure 119 mm[Hg] [facility] Work Phone: 07-02-2021 23:21-0400 Body height 167.64 cm [facility] Work Phone: 07-02-2021 23:21-0400 Body mass index (BMI) [Ratio] 28.4 kg/m2 [facility] Work Phone: 07-02-2021 23:21-0400 Body temperature 97.2 [degF] [facility] Work Phone: 07-02-2021 23:21-0400 Body weight 79.9 kg [facility] Work Phone: 06-05-2021 10:40-0400 Body height 167.6 cm Aby Bruner Work Phone: [facility] 06-05-2021 10:40-0400 Body weight 79.83 kg Aby Cosbyle DO Work Phone: [facility] 06-05-2021 10:40-0400 Diastolic blood pressure 62 mm[Hg] Aby Bruner Work Phone: [facility] 06-05-2021 10:40-0400 Heart rate 65 /min Aby Bruner DO Work Phone: [facility] 06-05-2021 10:40-0400 SaO2% (BldA) [Mass fraction] 99 % Aby Bruner DO Work Phone: [facility] 06-05-2021 10:40-0400 Systolic blood pressure 110 mm[Hg] Aby Bruner DO Work Phone: [facility] Encounters Encounter Date Encounter Type Care Provider Facility Start: 11-01-2024 ambulatory Payam POPE Facility:[facility] Start: 10-22-2024 End: 10-22-[address] Charles Ramos MD -[facility] Start: 10-22-2024 End: 10-22-[address] Galina Iraheta MD Work Phone: -[facility] Start: 10-13-2024 Registered Recurring Carmella Deluca WATER TREATMENT PLANT OPERATOR-C -Occupational Therapy Work Phone: Start: 10-13-2024 ambulatory Carmella Deluca Facility :[facility] Start: 10-04-2024 ambulatory Payam POPE Facility:[facility] Start: 10-04-2024 Registered Referred Payam Reyna MD -[facility] Start: 09-24-2024 End: 09-24-[address] Charles Ramos MD -[facility] Start: 09-24-2024 End: 09-24-[address] Galina Iraheta MD Work Phone: -[facility] Start: 09-22-2024 End: 09-22-[address] Galina Iraheta MD Work Phone: -[facility] Start: 09-22-2024 End: 09-22-2024 Patient encounter procedure Galina Horner WATER TREATMENT PLANT OPERATOR-C -[facility] Work Phone: Start: 09-22-2024 End: 09-22-2024 Telephone encounter Cassidy Arreola APRN.CNP Work Phone: Hematology/Oncology Start: 09-21-2024 End: 09-21-2024 Patient encounter procedure Cassidy Arreola CHASSIS INSPECTOR Work Phone: Hematology/Oncology Start: 09-21-2024 End: 09-21-2024 ambulatory [place] [facility] Work Phone: Hematology/Oncology Comment on above: Rheumatoid arthritis involving multiple sites, unspecified whether rheumatoid factor present (HCC) (Primary Dx); Senile osteoporosis; Personal history of breast cancer; Iron deficiency anemia due to chronic blood loss Personal history of breast cancer (Primary Dx); Iron deficiency anemia due to chronic blood loss Start: 09-20-2024 End: 09-20-[address] Galina Iraheta MD Work Phone: -[facility] Start: 09-20-2024 End: 09-20-2024 Patient encounter procedure Galina SCHAEFER -[facility] Work Phone: Start: 09-14-2024 End: 09-14-2024 Emergency department patient visit Dr. Galina Iraheta MD Work Phone: -Emergency Department Work Phone: Start: 09-14-2024 Non-patient / Non-visit Dr. Bowen Abdullahi MD -[facility] Work Phone: Start: 09-07-2024 End: 09-07-2024 Patient encounter procedure Juliet NUÑEZC -[facility] Work Phone: Start: 09-07-2024 End: 09-07-[address] Galina Iraheta MD Work Phone: [facility] Work Phone: Start: 09-03-2024 End: 09-03-[address] Charles Ramos MD -[facility] Start: 09-03-2024 End: 09-03-[address] Galina Iraheta MD Work Phone: [facility] Work Phone: Start: 08-30-2024 End: 09-13-2024 Telephone encounter Thalia Monterroso MD Work Phone: Rheumatology Comment on above: Scheduling Start: 08-30-2024 ambulatory Payam POPE Facility:[facility] Start: 08-30-2024 Registered Referred Payam Reyna MD -[facility] Start: 08-27-2024 End: 08-27-2024 ambulatory Thalia Monterroso MD Work Phone: Rheumatology Comment on above: Rheumatoid arthritis involving multiple sites, unspecified whether rheumatoid factor present (HCC) (Primary Dx); Senile osteoporosis; On prednisone therapy [facility] Start: 08-27-2024 End: 08-27-2024 Telemedicine consultation with patient Thalia Monterroso MD Work Phone: Rheumatology Start: 08-18-2024 End: 08-18-[address] Charles Ramos MD -[facility] Start: 08-18-2024 End: 08-18-[address] Galina Iraheta MD Work Phone: [facility] [facility] [employer] Work Phone: Start: 08-16-2024 End: 08-16-[address] Galina Iraheta MD Work Phone: -[facility] Start: 08-16-2024 End: 08-16-2024 Patient encounter procedure Galina Horner NP-C -[facility] Work Phone: Start: 08-13-2024 End: 08-13-[address] Charles Ramos MD -[facility] Start: 08-13-2024 End: 08-13-[address] Galina Iraheta MD Work Phone: [facility] [employer] Work Phone: Start: 08-12-2024 End: 08-12-[address] Galina Iraheta MD Work Phone: [facility] [employer] Work Phone: Start: 08-12-2024 End: 08-12-2024 Patient encounter procedure Galina SCHAEFER -[facility] Work Phone: Start: 08-06-2024 End: 08-06-[address] Galina Iraheta MD Work Phone: [facility] Work Phone: Start: 08-06-2024 End: 08-06-[address] Hiwot Abdullahi MD -[facility] Work Phone: Start: 08-06-2024 End: 08-06-2024 ambulatory Hiwot Abdullahi Facility:[facility] Start: 08-02-2024 End: 08-02-2024 Departed Referred Payam [facility]Agnes [facility] Start: 08-02-2024 End: 08-02-2024 ambulatory Payam POPE Facility:[facility] Start: 07-08-2024 End: 07-08-[address] Galina Iraheta MD Work Phone: [facility] Work Phone: Start: 07-08-2024 End: 07-08-2024 Departed Referred Payam GonzalezAgnes [facility] [place] Start: 07-08-2024 Registered Referred Payam GonzalezAgnes [place] Start: 07-07-2024 End: 07-08-[address] Galina Iraheta MD Work Phone: [facility] Work Phone: Start: 07-07-2024 End: 07-07-2024 Departed Referred Payam GonzalezAgnes [place] Start: 07-07-2024 Registered Referred Payam GonzalezAgnes [place] Start: 07-06-2024 End: 07-07-[address] Galina Irahtea MD Work Phone: [facility] Work Phone: Start: 07-06-2024 End: 07-06-[address] Payam Reyna MD -[facility] Work Phone: Start: 07-05-2024 End: 07-05-[address] Galina Iraheta MD Work Phone: [facility] Work Phone: Start: 07-05-2024 End: 07-05-2024 Departed Referred Payam GonzalezAgnes [place] Start: 07-05-2024 Registered Referred Payam GonzalezAgnes [place] Start: 07-05-2024 End: 07-05-2024 ambulatory Payam POPE Facility:[facility] Start: 06-16-2024 End: 06-16-2024 Telephone encounter Thalia Monterroso MD Work Phone: Rheumatology Start: 06-16-2024 End: 06-16-2024 [facility] Start: 06-16-2024 Registered Referred Payam GonzalezAgnes [place] Start: 06-16-2024 End: 06-16-2024 ambulatory Payam POPE Facility:[facility] Start: 06-11-2024 End: 06-11-2024 ambulatory [place] [facility] Work Phone: Hematology/Oncology Comment on above: Rheumatoid arthritis involving multiple sites, unspecified whether rheumatoid factor present (HCC); Senile osteoporosis Start: 05-31-2024 End: 05-31-[address] Galina Iraheta MD Work Phone: [facility] Work Phone: Start: 05-31-2024 End: 05-31-2024 [facility] [place] Start: 05-31-2024 [facility] [place] [place] Start: 05-31-2024 End: 05-31-2024 ambulatory Payam POPE Facility:[facility] Start: 05-21-2024 End: 05-21-2024 ambulatory Thalia Monterroso MD Work Phone: Rheumatology Comment on above: Rheumatoid arthritis involving multiple sites, unspecified whether rheumatoid factor present (HCC) (Primary Dx); Senile osteoporosis; On prednisone therapy Start: 05-21-2024 End: 05-21-2024 Telemedicine consultation with patient Thalia Monterroso MD Work Phone: Rheumatology Start: 05-13-2024 End: 05-13-[address] Galina Iraheta MD Work Phone: [facility] Work Phone: Start: 05-13-2024 End: 05-13-2024 Departed Referred Payam [facility]Agnes [facility] [place] Start: 05-13-2024 End: 05-13-2024 ambulatory Galina Horner NP Facility:[facility] Start: 05-13-2024 End: 05-13-2024 Patient encounter procedure Galina Horner WATER TREATMENT PLANT OPERATOR- -[facility] Work Phone: Start: 05-13-2024 End: 05-13-2024 ambulatory Payam POPE Facility:[facility] Start: 05-03-2024 ambulatory Payam POPE Facility:[facility] Start: 05-03-2024 Registered Referred Payam [place]Agnes [place] Start: 04-23-2024 End: 04-23-2024 Departed Referred [place]am [facility] [place] Start: 04-23-2024 End: 04-23-2024 ambulatory Payam POPE Facility:[facility] Start: 04-05-2024 End: 04-05-2024 Departed Referred Payam GonzalezAgnes [place] Start: 04-05-2024 End: 04-05-2024 ambulatory Payam POPE Facility:[facility] Start: 03-25-2024 End: 03-26-2024 ambulatory Cassidy Arreola APRN.CNP Work Phone: Hematology/Oncology Comment on above: Test Results Start: 03-19-2024 End: 03-19-2024 Subsequent [facility] Comment on above: Bilateral hip pain [ M25.551, M25.552] Iron deficiency anem ia due to chronic blood loss [D50.0] Start: 03-19-2024 End: 03-19-2024 ambulatory CASSIDY ARREOLA Facility:[facility] Start: 03-12-2024 End: 03-12-2024 ambulatory Treatment Rm 14 [place] [facility] Work Phone: Hematology/Oncology Comment on [...] Comment on above: Appointment Start: 03-02-2024 ambulatory Payam POPE Facility:[facility] Start: 03-02-2024 [facility] Start: 03-01-2024 ambulatory Payam POPE Facility:[facility] Start: 03-01-2024 Registered Referred [facility] Start: 02-27-2024 End: 02-27-2024 ambulatory Treatment [facility] Work Phone: Hematology/Oncology Comment on above: Iron [...] End: 02-24-2024 Patient encounter procedure Cassidy Arreola APRN.CHASSIS INSPECTOR Work Phone: Hematology/Oncology Start: 02-24-2024 End: 03-29-2024 ambulatory [place] [facility] Work Phone: Hematology/Oncology Comment on above: Rheumatoid arthritis involving multiple sites with positive rheumatoid factor (HCC) (Primary Dx); Rheumatoid arthritis involving multiple sites, unspecified whether rheumatoid factor present (HCC); Senile osteoporosis; Malignant neoplasm of lower-inner quadrant of right breast of female, estrogen receptor positive (HCC); Iron deficiency anemia due to chronic blood loss Start: 02-02-2024 End: 02-02-2024 ambulatory Efewongbe Jamese OLS Facility:[facility] Start: 01-28-2024 End: 01-28-2024 ambulatory Treatment Rm 17 [place] [facility] Work Phone: Hematology/Oncology Comment on above: Rheumatoid arthritis involving multiple sites with positive rheumatoid factor (HCC) (Primary Dx) Start: 01-23-2024 End: 01-23-2024 Telephone encounter Thalia Monterroso MD Work Phone: Rheumatology Comment on above: Patient Update Start: 01-14-2024 End: 01-14-2024 ambulatory Efmerylongbe Jamese OLS Facility:[facility] Start: 01-05-2024 ambulatory Payam modi OLS Facility:[facility] Start: 12-31-2023 End: 12-31-2023 ambulatory Galina Horner WATER TREATMENT PLANT OPERATOR Facility:[facility] Start: 12-29-2023 ambulatory Efarline modi OLS Facility:[facility] Start: 12-11-2023 End: 12-11-2023 ambulatory THALIA MONTERROSO Hematology/Oncology Comment on above: Senile osteoporosis (Primary Dx) Start: 12-11-2023 End: 12-11-2023 Patient encounter procedure Treatment Rm 16 [place] [facility] Work Phone: Hematology/Oncology Start: 12-04-2023 End: 12-04-2023 ambulatory EFEWONGBE B OLEGHE Hematology/Oncology Comment on above: Rheumatoid arthritis involving multiple sites with positive rheumatoid factor (HCC) (Primary Dx) Start: 12-04-2023 End: 12-04-2023 Patient encounter procedure Treatment Rm 14 [place] [facility] Work Phone: Hematology/Oncology Start: 12-02-2023 ambulatory Efewonggarfield Herrong rian OLS Facility:[facility] Start: 12-01-2023 ambulatory Efewongbe Jake rian OLS Facility:[facility] Start: 11-27-2023 ambulatory Efarline Herrong rian OLS Facility:[facility] Start: 11-25-2023 End: 11-26-2023 Telephone encounter Sal Bonilla DO Work Phone: Hematology/Oncology Comment on above: Patient Update Start: 11-25-2023 End: 11-25-2023 ambulatory [place] [facility] Work Phone: Hematology/Oncology Comment on [...] Rheumatology Start: 11-07-2023 End: 11-07-2023 ambulatory Galina Horner NP Facility:[facility] Start: 11-04-2023 End: 11-04-2023 ambulatory Efewongbe Jamese Facility:[facility] Start: 11-03-2023 ambulatory Efewongbe Jkae rian OLS Facility:[facility] Start: 10-09-2023 End: 10-09-2023 ambulatory EFEWONGBE B OLEREJIE Hematology/Oncology Comment on above: Rheumatoid arthritis involving multiple sites with positive rheumatoid factor (HCC) (Primary Dx) Start: 10-09-2023 End: 10-09-2023 Patient encounter procedure Treatment Rm 17 [place] [facility] Work Phone: Hematology/Oncology Start: 09-12-2023 End: 09-12-2023 ambulatory Treatment Rm 10 [place] [facility] Work Phone: Hematology/Oncology Comment on above: Rheumatoid arthritis involving multiple sites with positive rheumatoid factor (HCC) (Primary Dx) Start: 08-28-2023 End: 08-28-2023 ambulatory Treatment Rm 7 [place] [facility] Work Phone: Hematology/Oncology Comment on above: Rheumatoid arthritis involving multiple sites with positive rheumatoid factor (HCC) (Primary Dx) Start: 08-19-2023 Telephone encounter Cassidy vizcaino APRN.CHASSIS INSPECTOR Work Phone: Hematology/Oncology Comment on above: Orders Start: 08-19-2023 End: 08-19-2023 Patient encounter procedure Cassidy Arreola MOTOR ROOM CONTROLLER.CHASSIS INSPECTOR Work Phone: Hematology/Oncology Start: 08-19-2023 End: 08-19-2023 ambulatory [place] [facility] Work Phone: Hematology/Oncology Comment on [...] End: 07-15-2023 Patient encounter procedure Vikash Sylvester APRN.CHASSIS INSPECTOR Work Phone: URO/Gynecology Comment on above: Recurrent UTI (Prima ry Dx); Vaginal atrophy Start: 07-04-2023 ambulatory Hamzah Jackson [facility] Start: 07-04-2023 End: [...] 06-30-[address] Galina Iraheta Work Phone: [facility] Work Phone: Start: 06-30-2023 End: 06-30-[address] Galina Iraheta Work Phone: [facility] Start: 06-18-2023 End: 06-18-2023 Patient encounter procedure Stella Preciado PA-C Work Phone: Orthopaedics Comment on above: Chronic pain of left knee (Primary Dx); Primary osteoarthritis of both knees Start: 06-18-2023 End: 06-18-2023 Subsequent hospital visit by physician Xr [facility] Work Phone: Radiology Comment on above: Primary [...] Subsequent hospital visit by physician Bone D[facility] Work Phone: Radiology Comment on above: On prednisone therap y [Z79.52] Start: 06-02-2023 End: 06-02-[address] Galina Iraheta Work Phone: [facility] Work Phone: Start: 06-02-2023 End: 06-02-[address] Galina Iraheta Work Phone: [facility] Start: 05-19-2023 Orders Only Cassidy waldrop APRN.CHASSIS INSPECTOR Work Phone: Hematology/Oncology Comment on above: Malignant neoplasm o f lower-inner quadrant of right breast of female, estrogen receptor positive (HCC) (Primary Dx); Iron deficiency anemia due to chronic blood loss Start: 05-05-2023 End: 05-05-[address] Galina Iraheta Work Phone: [facility] Work Phone: Start: 05-05-2023 End: 05-05-[address] Galina Iraheta Work Phone: [facility] Start: 04-28-2023 Telephone encounter Thalia Monterroso MD Work Phone: Rheumatology Comment on above: Patient Update Start: 04-24-2023 Telephone encounter Thalia Monterroso MD Work Phone: Rheumatology Comment on above: Pain Start: 03-31-2023 End: 03-31-[address] Galina Iraheta Work Phone: [facility] Work Phone: Start: 03-31-2023 End: 03-31-[address] Galina Iraheta Work Phone: [facility] Start: 03-24-2023 End: 03-24-[address] Galina Iraheta Work Phone: [facility] Work Phone: Start: 03-03-2023 End: 03-03-[address] Galina Iraheta Work Phone: [facility] Start: 02-19-2023 End: 02-19-[address] Galina Iraheta Work Phone: [facility] Work Phone: Start: 02-11-2023 End: 02-11-2023 ambulatory Cassidy Arreola APRN.CHASSIS INSPECTOR Work Phone: Hematology/Oncology Comment on above: Personal history of breast cancer (Primary Dx); Iron deficiency anemia due to chronic blood loss Start: 02-11-2023 End: 02-11-2023 Patient encounter procedure Cassidy Arreola APRN.CHASSIS INSPECTOR Work Phone: [facility] Start: 02-03-2023 End: 02-03-2023 ambulatory [facility] Work Phone: Start: 02-03-2023 End: 02-03-2023 Departed Referred [facility] Start: 01-29-2023 End: 01-29-[address] Galina Iraheta Work Phone: [facility] Work Phone: Start: 01-14-2023 End: 01-14-2023 ambulatory [place] [facility] Work Phone: Hematology/Oncology Comment on above: Iron deficiency anem ia due to chronic blood loss (Primary Dx); Personal history of breast cancer; Malignant neoplasm of lower-inner quadrant of right breast of female, estrogen receptor positive (HCC) Start: 12-30-2022 End: 12-30-2022 ambulatory [facility] Work Phone: Start: 12-30-2022 End: 12-30-2022 Departed Referred [facility] Start: 12-19-2022 Telephone encounter Flaca Viramontes stephanie Jasso Work Phone: Orthopaedics Comment on above: Last Office Visit No te Start: 12-17-2022 End: 12-17-2022 ambulatory [place] [facility] Work Phone: Hematology/Oncology Comment on above: Iron deficiency anem ia due to chronic blood loss (Primary Dx) Start: 12-13-2022 End: 12-13-2022 Patient encounter procedure Juliet Gaffney APRN.CHASSIS INSPECTOR Work Phone: Cardiology Comment on above: Essential hypertensi on (Primary Dx); Paroxysmal atrial fibrillation (HCC) Start: 12-02-2022 End: 12-02-2022 Departed Referred [facility] Start: 11-26-2022 Telephone encounter Stella camejo PA-C Work Phone: Orthopaedics Start: 11-25-2022 End: 11-25-2022 Subsequent hospital visit by physician Xr [facility] Work Phone: Radiology Comment on above: Pain in right wrist [M25.531] Start: 11-25-2022 End: 11-25-2022 Patient encounter procedure Stella Preciado PA-C Work Phone: Orthopaedics Comment on above: Pain in right wrist (Primary Dx); Primary osteoarthritis of both knees; [facility] arthritis Start: 11-14-2022 Telephone encounter Jerrica Beltran APRN.CHASSIS INSPECTOR Work Phone: Cardiology Comment on above: Appointment Cancelle d Start: 11-04-2022 End: 11-04-2022 Departed Referred [facility] Start: 11-04-[address] Galina Iraheta Work Phone: [facility] Start: 10-22-2022 End: 10-22-2022 ambulatory Lab/[place] [facility] Work Phone: Hematology/Oncology Comment on above: Encounter for care r elated to vascular access port (Primary Dx) Start: 09-30-2022 End: 09-30-[address] Galina Iraheta Work Phone: [facility] Work Phone: Start: 09-30-2022 End: 09-30-[address] Galina Iraheta Work Phone: [facility] Start: 09-30-[address] Galina Iraheta Work Phone: [facility] Start: 09-24-2022 End: 09-24-2022 ambulatory [place] [facility] Work Phone: Hematology/Oncology Comment on above: Encounter for care r elated to vascular access port (Primary Dx) Start: 09-20-2022 Telephone encounter Cecilio Ibarra DO Work Phone: Cardiology Comment on above: Results (CBC 09/19/22 - 2 week starting Eliquis) Start: 09-19-2022 End: 09-19-[address] Galina Iraheta Work Phone: [facility] Work Phone: Start: 09-19-2022 End: 09-19-[address] Galina Iraheta Work Phone: [facility] Start: 09-19-[address] Galina Iraheta Work Phone: [facility] Start: 09-05-2022 End: 09-05-2022 Patient encounter procedure Cecilio Ibarra DO Work Phone: Cardiology Comment on above: Paroxysmal atrial fi brillation (HCC) (Primary Dx); Rheumatic mitral regurgitation; Essential hypertension; Mixed hyperlipidemia; Obstructive sleep apnea syndrome; Shortness of breath; PAF (paroxysmal atrial fibrillation) (HCC); SVT (supraventricular tachycardia) (HCC) Start: 09-02-2022 End: 09-02-[address] Galina Iraheta Work Phone: [facility] Work Phone: Start: 09-02-2022 End: 09-02-[address] Galina Iraheta Work Phone: [facility] Start: 08-27-2022 End: 08-27-2022 ambulatory Cassidy Arreola APRN.CHASSIS INSPECTOR Work Phone: Hematology/Oncology Comment on above: Personal history of breast cancer (Primary Dx); Iron deficiency anemia due to chronic blood loss Start: 08-27-2022 End: 08-27-2022 Patient encounter procedure Cassidy Arreola APRN.CHASSIS INSPECTOR Work Phone: [facility] Start: 08-14-2022 End: 08-14-[address] Galina Iraheta Work Phone: [facility] Work Phone: Start: 07-29-2022 End: 07-29-[address] Galina Iraheta Work Phone: [facility] Start: 07-01-2022 End: 07-01-[address] Galina Iraheta Work Phone: [facility] Work Phone: Start: 07-01-2022 End: 07-01-[address] Galina Iraheta Work Phone: [facility] Start: 06-18-2022 End: 06-18-2022 ambulatory [place] [facility] Work Phone: Hematology/Oncology Comment on above: Personal history of breast cancer (Primary Dx) Start: 06-11-2022 Telephone encounter Cassidy vizcaino APRN.CHASSIS INSPECTOR Work Phone: Hematology/Oncology Comment on above: Results Start: 06-05-2022 End: 06-05-2022 Subsequent hospital visit by physician [facility] Work Phone: Radiology Comment on above: Personal history of breast cancer [Z85.3] Start: 06-05-2022 End: 06-05-2022 ambulatory Cassidy Arreola APRN.CHASSIS INSPECTOR Work Phone: Hematology/Oncology Comment on above: Personal history of breast cancer (Primary Dx); Rib pain on right side Start: 06-05-2022 End: 06-05-2022 Patient encounter procedure Cassidy Arreola APRN.CHASSIS INSPECTOR Work Phone: [facility] Start: 06-03-2022 End: 06-03-[address] Galina Iraheta Work Phone: [facility] Work Phone: Start: 06-03-2022 End: 06-03-[address] Galina Iraheta Work Phone: [facility] Start: 06-03-[address] Galina Iraheta Work Phone: [facility] Start: 05-30-2022 End: 05-30-[address] Galina Iraheta Work Phone: [facility] Start: 05-30-2022 Telephone encounter Sal gutierrez DO Work Phone: Hematology/Oncology Comment on above: Patient Question Start: 05-06-2022 End: 05-06-[address] Galina Iraheta Work Phone: [facility] Work Phone: Start: 05-06-2022 End: 05-06-[address] Galina Iraheta Work Phone: [facility] Start: 04-17-2022 End: 04-17-2022 ambulatory Treatment [facility] Work Phone: Hematology/Oncology Comment on above: Iron [...] 04-15-2022 End: 04-15-2022 ambulatory Treatment Rm 2 [facility] Work Phone: Hematology/Oncology Comment on above: Iron deficiency anem ia due to chronic blood loss (Primary Dx); Iron malabsorption Start: 04-12-2022 End: 04-12-2022 ambulatory Treatment Rm 2 [facility] Work Phone: Hematology/Oncology Comment on above: Iron deficiency anem ia due to chronic blood loss (Primary Dx); Iron malabsorption Start: 04-10-2022 End: 04-10-2022 ambulatory Treatment Rm 3 [facility] Work Phone: Hematology/Oncology Comment on above: Iron deficiency anem ia due to chronic blood loss (Primary Dx); Iron malabsorption Start: 04-10-2022 Telephone encounter Starla Son RN He matology/Oncology Comment on above: 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 ) Start: 04-09-2022 End: 04-09-2022 Office outpatient visit 25 minutes Taty Perez APRN.CNP Work Phone: Cardiology Comment on above: Chest pain, unspecif ied type (Primary Dx); Paroxysmal atrial fibrillation (HCC); Rheumatic mitral regurgitation; Essential hypertension; Mixed hyperlipidemia; Obstructive sleep apnea syndrome; Shortness of breath Start: 04-08-2022 End: 04-08-2022 ambulatory Treatment Rm 13 [facility] Work Phone: Hematology/Oncology Comment on above: Iron 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 Galina Iraheta Work Phone: [facility] Work Phone: Start: 04-01-2022 End: 04-01-[address] Galina Iraheta Work Phone: [facility] Start: 04-01-[address] Galina Iraheta Work Phone: [facility] Start: 03-28-2022 End: 03-28-[address] Galina Iraheta Work Phone: [facility] Start: 03-25-2022 End: 03-25-[address] Galina Iraheta Work Phone: [facility] Start: 03-24-2022 Telephone encounter Sal gutierrez DO Work Phone: Hematology/Oncology Comment on above: Results (CBC) Start: 03-22-2022 End: 03-22-2022 ambulatory Lab/[place] [facility] Work Phone: Hematology/Oncology Comment on above: Iron deficiency anem ia due to chronic blood loss Start: 03-21-2022 Telephone encounter Sal gutierrez DO Work Phone: Hematology/Oncology Comment on above: Orders; Appointment Start: 03-14-2022 End: 03-14-2022 ambulatory Lab/[place] [facility] Work Phone: Hematology/Oncology Comment on above: Malignant neoplasm o f lower-inner quadrant of right breast of female, estrogen receptor positive (HCC) (Primary Dx); Iron deficiency anemia due to chronic blood loss Start: 03-07-2022 End: 03-07-[address] Galina Iraheta Work Phone: [facility] Work Phone: Start: 03-07-2022 End: 03-07-[address] Galina Iraheta Work Phone: [facility] Start: 03-07-[address] Galina Iraheta Work Phone: [facility] Start: 03-06-2022 Telephone encounter Sal gutierrez DO Work Phone: Hematology/Oncology Comment on above: Returning Patient's Call Start: 03-06-2022 End: 03-06-2022 ambulatory Cassidy Arreola APRN.CHASSIS INSPECTOR Work Phone: Hematology/Oncology Comment on above: Malignant neoplasm o f lower-inner quadrant of right breast of female, estrogen receptor positive (HCC) (Primary Dx) Start: 03-06-2022 End: 03-06-2022 Patient encounter procedure Cassidy Arreola APRN.CHASSIS INSPECTOR Work Phone: [facility] Start: 03-04-2022 End: 03-04-[address] Galina Iraheta Work Phone: [facility] Work Phone: Start: 03-04-2022 End: 03-04-[address] Galina Iraheta Work Phone: [facility] Start: 03-04-[address] Galina Iraheta Work Phone: [facility] Start: 02-21-2022 End: 02-21-[address] Galina Iraheta Work Phone: [facility] Work Phone: Start: 02-21-2022 End: 02-21-[address] Galina Iraheta Work Phone: [facility] Start: 02-21-[address] Galina Iraheta Work Phone: [facility] Start: 02-05-2022 End: 11-22-2022 ambulatory [place] [facility] Work Phone: Hematology/Oncology Comment on above: Anemia, unspecified type (Primary Dx) Start: 02-04-2022 End: 02-04-[address] Galina Iraheta Work Phone: [facility] Work Phone: Start: 02-04-2022 End: 02-04-[address] Galina Iraheta Work Phone: [facility] Start: 02-04-[address] Galina Iraheta Work Phone: [facility] Start: 01-21-2022 End: 01-21-2022 Patient encounter procedure Stella Preciado PA-C Work Phone: Orthopaedics Comment on above: Primary osteoarthrit is of both knees (Primary Dx); Chronic pain of right knee Start: 01-17-2022 End: 01-17-[address] Galina Iraheta Work Phone: [facility] Work Phone: Start: 01-17-2022 End: 01-17-[address] Galina Iraheta Work Phone: [facility] Start: 01-17-[address] Galina Iraheta Work Phone: [facility] Start: 01-08-2022 End: 01-08-2022 ambulatory Lab/[place] [facility] Work Phone: Hematology/Oncology Comment on above: Malignant neoplasm o f lower-inner quadrant of right breast of female, estrogen receptor positive (HCC) (Primary Dx) Start: 01-03-2022 End: 01-03-[address] Galina Iraheta Work Phone: [facility] Work Phone: Start: 01-03-2022 End: 01-03-[address] Galina Iraheta Work Phone: [facility] Start: 01-03-[address] Galina Iraheta Work Phone: [facility] Start: 01-02-2022 End: 01-02-2022 ambulatory BASILIA HERNÁNDEZ Facility:[facility] Start: 01-02-2022 End: 01-02-2022 Patient encounter procedure Basilia Hernández MD Work Phone: URO/Gynecology Comment on above: Recurrent UTI (Prima ry Dx); History of ESBL E. coli infection; Vaginal atrophy Start: 12-31-2021 End: 12-31-[address] Galina Iraheta Work Phone: [facility] Work Phone: Start: 12-31-2021 End: 12-31-[address] Galina Iraheta Work Phone: [facility] Start: 12-28-2021 End: 12-28-[address] Galina Iraheta Work Phone: [facility] Start: 12-28-2021 End: 12-28-2021 Emergency department patient visit Dr. Galina Iraheta Work Phone: [facility] Start: 12-27-2021 End: 12-27-[address] Galina Iraheta Work Phone: [facility] Work Phone: Start: 12-27-2021 End: 12-27-[address] Galina Iraheta Work Phone: [facility] Start: 12-27-[address] 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 Galina Iraheta Work Phone: [facility] Start: 12-22-2021 End: 12-22-[address] Galina Iraheta Work Phone: [facility] Work Phone: Start: 12-22-2021 End: 12-22-[address] Galina Iraheta Work Phone: [facility] Start: 12-22-[address] Galina Iraheta Work Phone: [facility] Start: 12-21-2021 End: 12-21-[address] Galina Iraheta Work Phone: [facility] Start: 12-17-2021 End: 12-17-[address] Galina Iraheta Work Phone: [facility] Start: 12-17-2021 Registered Referred [facility] Start: 12-11-2021 End: 12-11-2021 ambulatory Lab/[place] [facility] Work Phone: Hematology/Oncology Comment on above: Malignant neoplasm o f lower-inner quadrant of right breast of female, estrogen receptor positive (HCC) (Primary Dx) Start: 12-10-2021 End: 12-10-[address] Galina Iraheta Work Phone: [facility] Start: 12-10-2021 Registered Referred [facility] Start: 12-03-2021 End: 12-03-[address] Galina Iraheta Work Phone: [facility] Work Phone: Start: 12-03-2021 End: 12-03-[address] Galina Iraheta Work Phone: [facility] Start: 12-03-2021 Registered Referred [facility] Start: 11-26-2021 End: 11-26-2021 [facility] [facility] Start: 11-20-2021 End: 11-20-2021 ambulatory [facility] Work Phone: Start: 11-20-2021 End: 11-20-2021 Departed Referred [facility] Start: 11-13-2021 End: 11-13-2021 ambulatory Lab/[place] [facility] Work Phone: Hematology/Oncology Comment on above: Malignant neoplasm o f lower-inner quadrant of right breast of female, estrogen receptor positive (HCC) (Primary Dx) Start: 11-05-2021 Telephone encounter Pharmacist [facility] Comment on above: PAC TRANSFER OF CARE Start: 10-29-2021 End: 10-29-2021 Departed Referred [facility] Start: 10-23-2021 Telephone encounter Nury Andres [facility] harm[facility] Ambulatory Telemanagement Comment on above: Patient Question Start: 10-18-2021 Telephone encounter Galina caballero MD Work Phone: Internal Medicine [place] Comment on above: Patient Update Start: 10-18-2021 End: 10-18-2021 Emergency department patient visit [facility]-Emergency Department Start: 10-17-2021 Telephone encounter Galina caballero MD Work Phone: Internal Medicine [place] Comment on above: Release Of Medical R ecords Start: 10-16-2021 Telephone encounter Tesha luther [facility] Comment on above: Anticoagulation Tele phone Fu (home INR ) Start: 10-16-2021 End: 10-16-2021 ambulatory Lab/[place] [facility] Work Phone: [facility] Start: 10-16-2021 End: 10-16-2021 Anticoagulant drug monitoring Lab/[place] [facility] Work Phone: Hematology/Oncology Comment on above: Malignant neoplasm o f 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 coli infection Start: 10-02-2021 Telephone encounter Tesha luther [facility] Ambulatory Telemanagement Comment on above: Anticoagulation Tele phone Fu (home INR ) Start: 09-26-2021 End: 09-26-2021 ambulatory BASILIA HERNÁNDEZ Facility:[facility] Start: 09-26-2021 End: 09-26-2021 Patient encounter procedure Basilia Hernández MD Work Phone: URO/Gynecology Comment on above: Recurrent UTI (Prima ry Dx); History of ESBL E. coli infection; Mixed stress and urge urinary incontinence Start: 09-19-2021 Telephone encounter [facility] Amb[facility] Tele[facility] Comment on above: Anticoagulation Tele phone Fu (Home INR result) Start: 09-18-2021 End: 09-18-2021 Patient encounter procedure Cassidy Arreola APRN.CHASSIS INSPECTOR Work Phone: [facility] Start: 09-18-2021 End: 09-18-2021 ambulatory Lab/[place] [facility] Work Phone: Hematology/Oncology Comment on above: Malignant neoplasm o f lower-inner quadrant of right breast of female, estrogen receptor positive (HCC) (Primary Dx) Start: 09-11-2021 Telephone encounter Pharmacist [facility] Comment on above: Anticoagulation Start: 09-11-2021 End: 09-11-2021 Patient encounter procedure Jayde Hebert MD Work Phone: OB/Gynecology Comment on above: Old laceration of ce rvix uteri (Primary Dx) Start: 09-10-2021 Telephone encounter Jayde Hebert MD Work Phone: OB/Gynecology Comment on above: Results Start: 09-06-2021 Telephone encounter Galina caballero MD Work Phone: Internal Medicine [place] Comment on above: Patient Update Start: 09-05-2021 Telephone encounter [facility]ulatory Telemanagement Comment on above: Anticoagulation Tele phone Fu (Home INR result) Start: 09-05-2021 End: 09-05-2021 Patient encounter procedure Cecilio Alarcon Marilu SEWELL Work Phone: Cardiology Comment on above: Paroxysmal [...] above: Pathology Start: 08-28-2021 E-mail encounter susan altamirano caregiver Jayde Hebert MD Work Phone: [facility] Start: 08-28-2021 End: 08-28-2021 Patient encounter procedure Jayde Hebert MD Work Phone: OB/Gynecology Comment on above: Old laceration of ce rvix uteri (Primary Dx); Abnormal uterine bleeding (AUB) Start: 08-26-2021 End: 08-26-2021 Emergency department patient visit [facility]Emergency Department Start: 08-23-2021 ambulatory Jayde jackson MD Work Phone: OB/Gynecology Comment on above: PMB (postmenopausal bleeding) (Primary Dx); Endometrial thickening on ultrasound Start: 08-23-2021 Patient encounter procedure Jayde Hebert MD Work Phone: [facility] Start: 08-23-2021 End: 08-23-2021 Admission to same day surgery center [facility] Start: 08-22-2021 Telephone encounter [facility] Comment on above: Anticoagulation Tele phone Fu (Home INR result) Start: 08-17-2021 Telephone encounter Corinna Montes harmcarlos Ambulatory Telemanagement Comment on above: [...] ultrasound Start: 08-15-2021 Telephone encounter An Ta APRN.CHASSIS INSPECTOR Work Phone: Family [facility] Comment on above: Results Start: 08-14-2021 Telephone encounter Nury Montes harmacy Ambulatory Telemanagement Comment on above: Anticoagulation Tele phone Fu (Home INR result) Start: 08-12-2021 ambulatory Daysi ELLIS SE FACULTY RESEARCH ASSISTANT Comment on above: UTI Start: 08-10-2021 Telephone encounter An Ta APRN.CHASSIS INSPECTOR Work Phone: Family Medicine [place] Comment on above: Results Start: 08-08-2021 End: 08-08-2021 Patient encounter procedure An Ta APRN.CHASSIS INSPECTOR Work Phone: Internal Medicine [place] Comment on above: History of recent ho spitalization (Primary Dx); Dysuria; Recurrent UTI; Cirrhosis of liver with ascites, unspecified hepatic cirrhosis type (HCC); Biliary colic Start: 07-31-2021 Telephone encounter Nury Andres [facility] Ambulatory Telemanagement Comment on above: Anticoagulation Tele phone Fu (Home INR result) Start: 07-27-2021 Telephone encounter Galina caballero MD Work Phone: Internal Medicine [place] Comment on above: Agree to follow; Ord ers Start: 07-24-2021 E-mail encounter fro m caregiver [facility] Provider IVAN RODAS [facility] Start: 07-24-2021 Patient encounter procedure [facility] Provider Orthopaedics Comment on above: Appointment Reschedu le Start: 07-24-2021 Telephone encounter Haley Morris sser PA-C Work Phone: Rheumatology Comment on above: Appointment Start: 07-24-2021 End: 07-24-2021 ambulatory Lab/[place] [facility] Work Phone: Hematology/Oncology Comment on above: Malignant neoplasm o f lower-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, estrogen receptor positive (HCC) (Primary Dx) Start: 07-23-2021 End: 07-23-2021 Departed Referred [facility] 300 Start: 07-23-2021 Registered Referred [place] [id number] Start: 07-18-2021 Telephone encounter Marlin Ansari [facility] Ambulatory Telemanagement Comment on above: Anticoagulation Tele phone Fu Patient Update Start: 07-16-2021 End: 07-16-2021 Departed Referred [facility] 300 Start: 07-16-2021 Registered Referred [facility] 300 Start: 07-13-2021 End: 07-13-2021 Departed Referred [facility] 300 Start: 07-10-2021 ambulatory Galina Singh Work Phone: Internal Medicine [facility] Start: 07-06-2021 Telephone encounter Coreen haro MD Work Phone: Gastroenterology Comment on above: Results Start: 07-05-2021 Telephone encounter Galina caballero MD Work Phone: Family Medicine [place] Comment on above: Pain (back & legs / Pt update) Start: 07-05-2021 End: 07-05-2021 Patient encounter procedure Johnny Turk MD Work Phone: General Surgery Comment on above: Calculus of gallblad gary without cholecystitis without obstruction (Primary Dx); Secondary biliary cirrhosis (HCC) Start: 07-03-2021 Telephone encounter Johnny Turk MD Work Phone: General Surgery Comment on above: Patient Question (ga llbladder ER [facility]) Start: 07-03-2021 End: 07-03-2021 Patient encounter procedure Almaradha Ta MOTOR ROOM CONTROLLER.CHASSIS INSPECTOR Work Phone: Internal Medicine [place] Comment on above: Dysuria (Primary Dx) ; Right upper quadrant abdominal pain; Chronic anticoagulation Start: 07-02-2021 End: 07-03-2021 [facility] Start: 06-26-2021 End: 06-26-2021 ambulatory Lab[place] [facility] Work Phone: Hematology/Oncology Comment on above: Malignant neoplasm o f lower-inner quadrant of right breast of female, estrogen receptor positive (HCC) (Primary Dx) Start: 06-22-2021 Telephone encounter Corinna Arenas [facility] Ambulatory Telemanagement Comment on above: Anticoagulation Tele phone Fu (INR Home Test Result) Start: 06-20-2021 Telephone encounter [facility] Ambulatory Telemanagement Comment on above: Anticoagulation Tele phone Fu (Home INR result) Start: 06-19-2021 Telephone encounter Basilia Cueto APRN.CHASSIS INSPECTOR Work Phone: [facility] Comment on above: Results (urine cultu re) Start: 06-05-2021 End: 06-05-2021 Patient encounter procedure Aby Bruner DO Work Phone: Vascular Surgery Comment on above: Venous (peripheral) insufficiency (Primary Dx) Start: 05-23-2021 ambulatory Jerrica Rothman joel Phar yisel Ambulatory Telemanagement Comment on above: INR in therapeutic r jeannine Start: 05-23-2021 E-mail encounter susan m caregiver Jerrica Rothman RP CC [employer] Start: 05-17-2021 End: 05-17-2021 Subsequent hospital visit by physician Xr [facility] [place] Work Phone: Radiology Comment on above: Cough [R05.9] Start: 05-17-2021 ambulatory Mercy claros RT(R) Radiology Comment on above: Results Start: 05-17-2021 Patient encounter procedure Mercy Ridley RT(R) [facility] [place] Start: 05-09-2021 ambulatory Jerrica Rothman [facility] Phar yisel Ambulatory Telemanagement Comment on above: INR in therapeutic r jeannine Start: 05-09-2021 E-mail encounter fro m caregiver Jerrica Lorna [facility] CC DD BUILDING Start: 02-07-2021 Telephone encounter Galina caballero MD Work Phone: Internal Medicine [place] Comment on above: Medication Question Start: 11-27-2020 End: 11-27-2020 Subsequent hospital visit by physician Xr [facility] [place] Work Phone: Radiology Comment on above: Fever, unspecified f ever cause [R50.9] Start: 05-05-2020 End: 05-05-2020 Subsequent hospital visit by physician Xr [facility] [place] Work Phone: Radiology Comment on above: Chronic cough [R05] Procedures Date Procedure Procedure Detail Performing Clinician Start: 10-22-2024 XR forearm, [address] Galina Iraheta MD Work Phone: Start: 09-24-2024 XR forearm, [address] Galina Iraheta MD Work Phone: Start: 09-21-2024 Blood count complete auto&auto difrntl wbc Cassidy Arreola MOTOR ROOM CONTROLLER.CHASSIS INSPECTOR Work Phone: Start: 09-21-2024 C-reactive protein Ammy keren Monterroso MD Work Phone: Start: 09-14-[address] Sergo Iraheta MD Work Phone: Start: 09-14-2024 Urnls dip stick/tabl et reagent auto microscopy Dr. Galina Iraheta MD Work Phone: Start: 09-14-2024 Plain x-ray of elbow Dr Frederick Iraheta MD Work Phone: Start: 09-14-2024 Plain radiography of pelvis Dr. Galina Iraheta MD Work Phone: Start: 09-14-2024 CT cervical spine wi thout contrast Dr. Galina Iraheta MD Work Phone: Start: 09-14-2024 CT of head without contrast Dr. Galina Iraheta MD Work Phone: Start: 09-03-2024 Plain x-ray of wrist Dr [...] above: Detection Limit = 5P erformed at: [facility] [id number] Director: Jeremiah Bates MD, Phone: [phone] Start: 04-05-2024 Measurement of renal function Dr. Galina Iraheta MD Work Phone: Comment on above: GFR Calc Start: 04-05-2024 Percentage plasma ce ll count Dr. Galina Iraheta MD Work Phone: Start: 02-24-2024 Blood count complete auto&auto difrntl wbc Cassidy Arreola MOTOR ROOM CONTROLLER.CHASSIS INSPECTOR Work Phone: Start: 11-25-2023 Blood count complete [...] ribs unilatera l 2 views Cassidy Arreola MOTOR ROOM CONTROLLER.CHASSIS INSPECTOR Work Phone: Start: 03-22-2022 Blood count complete [...] et rgnt auto w/o microscopy An Ta MOTOR ROOM CONTROLLER.CHASSIS INSPECTOR Work Phone: Start: 07-03-2021 Computed tomography of abdomen and pelvis with intravenous contrast Start: 05-17-2021 Radiologic exam ches t 2 views Darline Hurley MOTOR ROOM CONTROLLER.CHASSIS INSPECTOR Work Phone: Start: 01-12-2021 Antibody screen Comment on above: Performed By: #### 5 [id number] #### [facility] CLIA [id number] [address] [place] [address] Start: 01-09-2021 Colonoscopy Aby encarnacion DO Work Phone: Start: 11-27-2020 Radiologic exam ches t 2 views Joann Haynes MOTOR ROOM CONTROLLER.CHASSIS INSPECTOR Work Phone: Start: 05-05-2020 Radiologic exam ches t 2 views Alma Shankar MOTOR ROOM CONTROLLER.CHASSIS INSPECTOR Work Phone: Measurement of occul t blood in stool specimen using immunoassay Urine culture Urine culture Dr. Galina caballero Work Phone: Plan of Treatment Date Care Activity Detail Author Start: 09-22-2027 Diabetes Screening Diabetes Screening [facility] Start: 06-12-2027 Diabetes Screening Diabetes Screening [facility] Start: 02-23-2027 Diabetes Screening Diabetes Screening [facility] Start: 11-24-2026 Diabetes Screening Diabetes Screening [facility] Start: 07-03-2026 Diabetes Screening Diabetes Screening [facility] Start: 06-05-2025 Screening for osteoporosis Bone Density Screening [facility] Start: 03-23-2025 End: 03-23-2025 ambulatory Hematology/Oncology Comment on above: CBC/IRON STUDIES(PORT)/OV TODAY 6 MO OV* Start: 03-14-2025 DIABETES SCREEN DIABETES SCREEN [facility] Start: 03-14-2025 Diabetes Screening Diabetes Screening [facility] Start: 01-14-2025 End: 01-14-2025 Patient encounter procedure 01/14/2025 9:20 AM EDT Office Visit Neurology [address] [place] [id number] Nathaniel Herrera Jr., MD [address] [place] [address] confusion Neurology Comment on above: confusion Start: 12-22-2024 End: 12-22-2024 ambulatory 12/22/2024 11:15 AM EDT Infusion Center Hematology/Oncology [address] [place] [address] Wstr, Lab/[place] [facility] [address] [place] [address] PORT FLUSH* Hematology/Oncology Comment on above: PORT FLUSH* Start: 11-23-2024 End: 11-23-2024 ambulatory 11/23/2024 11:40 AM EDT [facility] Rheumatology [address] [place] [address] Thalia Monterroso MD [address] [place], [place] [id number] ra f/u Rheumatology Comment on above: ra f/u Start: 11-15-2024 Influenza vaccination [facility] Start: 10-22-2024 XR forearm, 2 views Forearm 2 Views [facility] Start: 10-22-2024 XR Radius and Ulna 2 Views [facility] Start: 09-24-2024 XR forearm, 2 views Forearm 2 Views [facility] Start: 09-24-2024 XR Radius and Ulna 2 Views [facility] Start: 09-21-2024 End: 09-21-2024 ambulatory Hematology/Oncology Comment on above: 6 MO OV* CBC/IRON STUDIES(POR T)/OV TODAY Start: 09-14-2024 End: 09-14-2024 [facility] Start: 09-03-2024 Plain x-ray of wrist Wrist min 3 Views [facility] Start: 09-03-2024 XR Wrist GE 3 Views [facility] Start: 08-27-2024 End: 08-27-2024 ambulatory 08/27/2024 10:00 AM EDT [facility] Rheumatology [address] [place] [address] Thalia Monterroso MD [address] [place] [address] RA Rheumatology Comment on above: RA Start: 08-18-2024 XR forearm, 2 views Forearm 2 Views [facility] Start: 08-18-2024 XR Radius and Ulna 2 Views [facility] Start: 08-13-2024 Plain x-ray of humerus Humerus min 2 Views [facility] Start: 08-13-2024 XR forearm, 2 views Forearm 2 Views [facility] Start: 08-13-2024 XR Humerus GE 2 Views [facility] Start: 08-13-2024 XR Radius and Ulna 2 Views [facility] Start: 08-13-2024 DIABETES SCREEN DIABETES SCREEN [facility] Start: 08-06-2024 Venous catheter care management [facility] Start: 2024 DIABETES SCREEN DIABETES SCREEN [facility] Start: 07-11-2024 DIABETES SCREEN DIABETES SCREEN [facility] Start: 07-06-2024 DIABETES SCREEN DIABETES SCREEN [facility] Start: 07-05-2024 DIABETES SCREEN DIABETES SCREEN [facility] Start: 06-11-2024 End: 06-11-2024 ambulatory 06/11/2024 2:00 PM EDT Infusion Center Hematology/Oncology [address] [place] [address] Wstr, [place] [facility] [address] [place] [address] port flush* Hematology/Oncology Comment on above: port flush* Start: 06-01-2024 End: 06-01-2024 Patient encounter procedure 06/01/2024 10:00 AM EDT Office Visit URO/Gynecology [address] [place] [address] Vikash Sylvester, MOTOR ROOM CONTROLLER.CHASSIS INSPECTOR [address] [facility] [place] [address] FOLLOWUP URO/Gynecology Comment on above: FOLLOWUP Start: 05-22-2024 DIABETES SCREEN DIABETES SCREEN [facility] Start: 05-21-2024 End: 05-21-2024 Patient encounter procedure 05/21/2024 11:40 AM EST Office Visit Cardiology [address] [address] Annmarie Shell MD [address] [place] [address] follow up Cardiology Comment on above: follow up Start: 05-19-2024 End: 05-19-2024 ambulatory 05/19/2024 11:00 AM EST Infusion Center Hematology/Oncology [address] [place] [address] 2ND Hematology/Oncology Comment on above: 2ND Start: 03-25-2024 End: 03-25-2024 ambulatory 03/25/2024 10:00 AM EST Visit (SP) Office Hematology/Oncology [address] [place] [address] 2ND Hematology/Oncology Comment on above: 2ND Start: 03-24-2024 End: 03-24-2024 ambulatory 03/24/2024 11:00 AM EST Infusion Center Hematology/Oncology [address] [place] [address] 2ND Hematology/Oncology Comment on above: 2ND Start: 03-19-2024 End: 03-19-2024 Patient encounter procedure Radiology Comment on above: Bilateral hip pain [M25.551, M25.552] CT Pelvis/Chest/Abd Start: 03-19-2024 End: 03-19-2024 ambulatory 03/19/2024 9:30 AM EST Infusion Center Hematology/Oncology [address] [place] [address] Wstr, [place] [facility] [address] [place] [address] CREATININE(S)(PORT)/KEEP ACCESSED FOR IMAGING* Hematology/Oncology Comment on above: CREATININE(S)(PORT)/KEEP ACCESSED FOR IM AGING* Start: 03-17-2024 Advance Directive Discussion Advance Directive Discussion [facility] Start: 03-12-2024 End: 03-12-2024 ambulatory 03/12/2024 2:30 PM EST Infusion Center Hematology/Oncology [address] [place] [address] 2nd Hematology/Oncology Comment on above: 2nd Start: 03-09-2024 End: 03-09-2024 Patient encounter procedure Cat Scan Comment on above: CT Pelvis/Chest/Abd Start: 03-08-2024 End: 03-08-2024 ambulatory 03/08/2024 3:00 PM EST Infusion Center Hematology/Oncology [address] [place] [address] 2nd Hematology/Oncology Comment on above: 2nd Start: 03-05-2024 End: 03-05-2024 ambulatory Rheumatology Comment on above: PRM f up 2nd Start: 03-03-2024 End: 03-03-2024 ambulatory 03/03/2024 3:00 PM EST Infusion Center Hematology/Oncology [address] [place] [address] 2nd Hematology/Oncology Comment on above: 2nd Start: 02-24-2024 End: 05-25-2024 CREATININE BLD CREATININE BLD Lab Routine Iron deficiency anemia due to chronic blood loss Bilateral hip pain Generalized abdominal pain Abdominal bloating Personal history of breast cancer Occult blood in stools Expected: 02/24/2024, Expires: 05/25/2024 [facility] Comment on above: Expected: 02/24/2024, Expires: Start: 02-24-2024 End: 02-24-2024 ambulatory Hematology/Oncology Comment on above: CBC/iron studies (PORT)/OV TODAY* 6MO OV Start: 02-16-2024 End: 02-16-2024 Patient encounter procedure 02/16/2024 2:00 PM EST Office Visit Cardiology [address] [address] Annmarie Shell MD [address] [place], [place] [id number] follow up Cardiology Comment on above: follow up Start: 01-29-2024 End: 01-29-2024 ambulatory 01/29/2024 11:00 AM EST Visit (SP) Office Hematology/Oncology [address] [place] [address] 2ND Hematology/Oncology Comment on above: 2ND Start: 01-28-2024 End: 01-28-2024 ambulatory Hematology/Oncology Comment on above: 2ND Start: 12-16-2023 End: 12-16-2023 Patient encounter procedure 12/16/2023 2:20 PM EDT Office Visit Cardiology [address] [address] Cecilio Ibarra DO [address] [place] [address] 6 month follow up Cardiology Comment on above: 6 month follow up Start: 12-04-2023 End: 12-04-2023 Infusion Center Hematology/Oncology Comment on above: Q8WK RENFLEXIS(PORT)/ORDERING PROV DR RA Pena/MDCR* 2ND Start: 11-25-2023 End: 02-24-2024 Ferritin [Mass/volume] in Serum or Plasma [facility] Comment on above: Expected: 11/25/2023, Expires: 4 Start: 11-25-2023 End: 02-24-2024 Iron and Iron binding capacity panel - Serum or Plasma [facility] Work Phone: Comment on above: Expected: 11/25/2023, Expires: Start: 11-25-2023 End: 11-25-2023 ambulatory 11/25/2023 1:30 PM EDT Infusion Center Hematology/Oncology [address] [place] [address] Wstr, [place] [facility] [address] [place] [address] CBC/iron studies (PORT)/OV TODAY* Hematology/Oncology Comment on above: CBC/iron studies (PORT)/OV TODAY* Start: 11-16-2023 Covid-19 Vaccine ( season) Covid-19 Vaccine () [facility] Start: 11-16-2023 Covid-19 Vaccine () Covid-19 Vaccine () [facility] Start: 11-16-2023 Influenza vaccination [facility] Start: 11-14-2023 End: 02-13-2024 25-hydroxyvitamin D3 [Mass/volume] in Serum or Plasma VITAMIN D 25 HYDROXY Lab Routine Rheumatoid arthritis involving multiple sites, unspecified whether rheumatoid factor present (HCC) Senile osteoporosis Expected: 11/14/2023, Expires: 02/13/2024 [facility] Work Phone: Comment on above: Expected: 11/14/2023, Expires: Start: 11-14-2023 End: 11-14-2023 ambulatory Rheumatology Comment on above: PRM f up Start: 10-09-2023 End: 10-09-2023 Infusion Center 10/09/2023 11:00 AM EDT Infusion Center Hematology/Oncology [address] [place], [place] [id number] Q6WK RENFLEXIS(PORT)/ORDERING PROV DR MONTERROSO/MDCR* THEN Q8WK Hematology/Oncology Comment on above: Q6WK RENFLEXIS(PORT)/ORDERING PROV DR RA Pena/MDCR* THEN Q8WK Start: 09-12-2023 End: 09-12-2023 ambulatory 09/12/2023 11:00 AM EDT Infusion Center Hematology/Oncology [address] [place] [id number] daughter requested time Hematology/Oncology Comment on above: daughter requested time Start: 09-11-2023 End: 09-11-2023 Infusion Center 09/11/2023 9:00 AM EDT Infusion Center Hematology/Oncology [address] [place] [address] Q2WK RENFLEXIS(PORT)/ORDERING PROV DR MONTERROSO/MARCIALR* wk0,2,6,then q8wk Hematology/Oncology Comment on above: Q2WK RENFLEXIS(PORT)/ORDERING PROV DR RA Pena/MDCR* wk0,2,6,then q8wk Start: 08-28-2023 End: 08-28-2023 Infusion Center 08/28/2023 11:00 AM EDT [facility] Center Hematology/Oncology [address] [place] [address] START Q0WK RENFLEXIS(PORT)/ORDERING PROV DR MONTERROSO/MARCIALR* wk0,2,6,then q8wk Hematology/Oncology Comment on above: START Q0WK RENFLEXIS(PORT)/ORDERING PROV DR MONTERROSO/NISH* wk0,2,6,then q8wk Start: 08-19-2023 End: 08-19-2023 ambulatory Hematology/Oncology Comment on above: CBC/iron studies (PORT)/OV TODAY* 6MO OV(PORT)/LABS EA RLY* Start: 07-04-2023 End: 10-03-2023 BLOOD TB SCREEN [facility] Work Phone: Comment on above: Expected: 07/04/2023, Expires: 4 Start: 07-04-2023 End: 10-03-2023 Chronic hepatitis differentiation between hepatitis B and C virus panel - Serum or Plasma [facility] Work Phone: Comment on above: Expected: 07/04/2023, Expires: 4 Start: 07-04-2023 End: 10-03-2023 Cyclic citrullinated peptide IgG Ab [Units/volume] in Serum or Plasma [facility] Work Phone: Comment on above: Expected: 07/04/2023, Expires: 4 Start: 05-20-2023 End: 08-19-2023 CBC W Auto Differential panel - Blood CBC + DIFF Lab STAT Malignant neoplasm of lower-inner quadrant of right breast of female, estrogen receptor positive (HCC) Iron deficiency anemia due to chronic blood loss Expected: 05/20/2023, Expires: 08/19/2023 [facility] Work Phone: Comment on above: Expected: 05/20/2023, Expires: Start: 05-20-2023 End: 08-19-2023 Ferritin [Mass/volume] in Serum or Plasma FERRITIN BLD Lab Routine Malignant neoplasm of lower-inner quadrant of right breast of female, estrogen receptor positive (HCC) Iron deficiency anemia due to chronic blood loss Expected: 05/20/2023, Expires: 08/19/2023 [facility] Work Phone: Comment on above: Expected: 05/20/2023, Expires: Start: 05-20-2023 End: 08-19-2023 Iron and Iron binding capacity panel - Serum or Plasma IRON + TIBC Lab Routine Malignant neoplasm of lower-inner quadrant of right breast of female, estrogen receptor positive (HCC) Iron deficiency anemia due to chronic blood loss Expected: 05/20/2023, Expires: 08/19/2023 [facility] Work Phone: Comment on above: Expected: 05/20/2023, Expires: Start: 03-17-2023 Advance Directive Discussion Advance Directive Discussion [facility] Start: 11-17-2022 Urine microalbumin profile [facility] Start: 11-15-2022 Covid-19 Vaccine () Covid-19 Vaccine () [facility] Start: 11-15-2022 Influenza vaccination [facility] Start: 09-19-2022 End: 11-19-2022 CBC panel - Blood by Automated count CBC Lab Routine Paroxysmal atrial fibrillation (HCC) Rheumatic mitral regurgitation Essential hypertension Mixed hyperlipidemia Obstructive sleep apnea syndrome Shortness of breath PAF (paroxysmal atrial fibrillation) (HCC) SVT (supraventricular tachycardia) (HCC) Expected: 09/19/2022, Expires: 11/19/2022 [facility] Work Phone: Comment on above: Expected: 09/19/2022, Expires: 3 Start: 04-17-2022 End: 06-17-2022 CBC W Auto Differential panel - Blood CBC + DIFF Lab STAT Iron deficiency anemia due to chronic blood loss Malignant neoplasm of lower-inner quadrant of right breast of female, estrogen receptor positive (HCC) Expected: 04/17/2022, Expires: 06/17/2022 [facility] Work Phone: Comment on above: Expected: 04/17/2022, Expires: 3 Start: 04-17-2022 End: 06-17-2022 Ferritin [Mass/volume] in Serum or Plasma FERRITIN BLD Lab Routine Iron deficiency anemia due to chronic blood loss Malignant neoplasm of lower-inner quadrant of right breast of female, estrogen receptor positive (HCC) Expected: 04/17/2022, Expires: 06/17/2022 [facility] Work Phone: Comment on above: Expected: 04/17/2022, Expires: Start: 04-17-2022 End: 06-17-2022 Iron and Iron binding capacity panel - Serum or Plasma IRON + TIBC Lab Routine Iron deficiency anemia due to chronic blood loss Malignant neoplasm of lower-inner quadrant of right breast of female, estrogen receptor positive (HCC) Expected: 04/17/2022, Expires: 06/17/2022 [facility] Work Phone: Comment on above: Expected: 04/17/2022, Expires: 3 Start: 04-17-2022 End: 06-17-2022 RETIC COUNT RETIC COUNT Lab Routine Iron deficiency anemia due to chronic blood loss Malignant neoplasm of lower-inner quadrant of right breast of female, estrogen receptor positive (HCC) Expected: 04/17/2022, Expires: 06/17/2022 [facility] Work Phone: Comment on above: Expected: 04/17/2022, Expires: 3 Start: 04-17-2022 End: 06-17-2022 Transferrin receptor.soluble [Mass/volume] in Serum or Plasma SOLUBLE TRANS RECEPTOR Lab Routine Iron deficiency anemia due to chronic blood loss Malignant neoplasm of lower-inner quadrant of right breast of female, estrogen receptor positive (HCC) Expected: 04/17/2022, Expires: 06/17/2022 [facility] Work Phone: Comment on above: Expected: 04/17/2022, Expires: 3 Start: 03-17-2022 ADVANCE DIRECTIVE DISCUSSION ADVANCE DIRECTIVE DISCUSSION [facility] Start: 03-12-2022 End: 05-12-2022 CBC W Ordered Manual Differential panel - Blood PATHOLOGIST INTERPRETATION WITH CBC AND DIFF Lab Routine Iron deficiency anemia due to chronic blood loss Expected: 03/12/2022, Expires: 05/12/2022 [facility] Work Phone: Comment on above: Expected: 03/12/2022, Expires: 3 Start: 03-06-2022 Administration of blood product [facility] Start: 03-06-2022 [facility] Start: 01-09-2022 Colonoscopy COLONOSCOPY [facility] Start: 01-09-2022 Screening for malignant neoplasm of colon Colonoscopy [facility] Start: 12-28-2021 Administration of blood product [facility] Start: 11-15-2021 Influenza vaccination INFLUENZA (#1) [facility] Start: 10-29-2021 End: 12-29-2021 CBC W Auto Differential panel - Blood CBC + DIFF Lab Routine BRBPR (bright red blood per rectum) Expected: 10/29/2021, Expires: 12/29/2021 [facility] Work Phone: Comment on above: Expected: 10/29/2021, Expires: 2 Start: 10-18-2021 [facility] Work Phone: Start: 10-18-2021 Administration of blood product [facility] Work Phone: Start: 10-18-2021 [facility] Work Phone: Start: 10-15-2021 End: 12-15-2021 CBC W Auto Differential panel - Blood CBC + DIFF Lab Routine Chronic anticoagulation Expected: 10/15/2021, Expires: 12/15/2021 [facility] Work Phone: Comment on above: Expected: 10/15/2021, Expires: 2 Start: 10-15-2021 End: 12-15-2021 PT panel - Platelet poor plasma by Coagulation assay PROTHROMBIN TIME/PT Lab Routine Chronic anticoagulation Expected: 10/15/2021, Expires: 12/15/2021 [facility] Work Phone: Comment on above: Expected: 10/15/2021, Expires: 2 Start: 08-23-2021 Anes hysteroscopy&/hysterosal pingography w/bx ANESTH HYSTEROSCOPE/GRAPH [facility] Work Phone: Start: 08-23-2021 Hysteroscopy bx endometrium&/polypc w/wo d&c HYSTEROSCOPY BIOPSY [facility] Work Phone: Start: 08-23-2021 Patient discharge [facility] Work Phone: Start: 08-23-2021 Ambulation without limitation [facility] Work Phone: Start: 08-23-2021 Medical regimen orders management [facility] Work Phone: Start: 08-23-2021 Medication education [facility] Work Phone: Start: 08-23-2021 Taking patient vital signs [facility] Work Phone: Start: 08-23-2021 Vital signs measurements [facility] Work Phone: Start: 08-23-2021 [facility] Work Phone: Start: 08-10-2021 End: 10-10-2021 Bacteria identified in Urine by Culture URINE CULTURE Microbiology Routine Dysuria Expected: 08/10/2021, Expires: 10/10/2021 [facility] Work Phone: Comment on above: Expected: 08/10/2021, Expires: 2 Start: 04-18-2021 Screening for malignant neoplasm of cervix Cervical Cancer Screening [facility] Start: 03-24-2021 COVID-19 VACCINE (4 - Booster for Moderna series) COVID-19 VACCINE (4 - Booster for Moderna series) [facility] Start: 03-17-2021 ADVANCE DIRECTIVE DISCUSSION ADVANCE DIRECTIVE DISCUSSION [facility] Start: 01-17-2021 COVID-19 VACCINE (4 - Booster for Moderna series) COVID-19 VACCINE (4 - Booster for Moderna series) [facility] Start: 01-17-2021 COVID-19 VACCINE (4 - Moderna series) COVID-19 VACCINE (4 - Moderna series) [facility] Start: 08-02-2011 Shingrix Vaccine (1 of 2) Shingrix Vaccine (1 of 2) [facility] Start: 08-02-2011 SHINGRIX VACCINE (2 of 3) SHINGRIX VACCINE (2 of 3) [facility] Start: 07-13-2011 RSV Vaccine (1 - 1-dose 75+ series) RSV Vaccine (1 - 1-dose 75+ series) [facility] Start: 09-15-2003 Medicare Annual Wellness Visit Medicare Annual Wellness Visit [facility] Start: 1996 HEPATITIS B (1 of 3 - Risk 3-dose series) HEPATITIS B (1 of 3 - Risk 3-dose series) [facility] Start: 1996 Hepatitis B Vaccine (1 of 3 - Risk 3-dose series) Hepatitis B Vaccine (1 of 3 - Risk 3-dose series) [facility] Start: 1996 RSV Vaccine (1 - 1-dose 60+ series) RSV Vaccine (1 - 1-dose 60+ series) [facility] Start: 07-13-1955 HEPATITIS A (1 of 2 - Risk 2-dose series) HEPATITIS A (1 of 2 - Risk 2-dose series) [facility] Start: 07-13-1955 Hepatitis A Vaccine (1 of 2 - Risk 2-dose series) Hepatitis A Vaccine (1 of 2 - Risk 2-dose series) [facility] Start: 07-13-1955 HEPATITIS B (1 of 3 - Risk 3-dose series) HEPATITIS B (1 of 3 - Risk 3-dose series) [facility] Start: 1954 Anxiety Screening Anxiety Screening [facility] Start: 1937 HEPATITIS A (1 of 2 - Risk 2-dose series) [facility] 25-hydroxyvitamin D3 [Mass/volume] in Serum or Plasma VITAMIN D 25 HYDROXY Lab Routine Rheumatoid arthritis involving multiple sites, unspecified whether rheumatoid factor present (HCC) Senile osteoporosis 11/25/2023 1:46 PM EDT [facility] Work Phone: Bacteria identified in Urine by Culture URINE CULTURE Microbiology Routine Dysuria Ordered: 08/08/2021 [facility] Work Phone: Comment on above: Ordered: 08/08/2021 Bacteria identified in Urine by Culture URINE CULTURE Microbiology Routine Recurrent UTI Mixed stress and urge urinary incontinence 08/30/2021 2:06 PM EDT [facility] Work Phone: End: 09-26-2022 Bacteria identified in Urine by Culture URINE CULTURE Microbiology Routine Recurrent UTI 12 Occurrences starting 09/26/2021 until 09/26/2022 [facility] Work Phone: Comment on above: 12 Occurrences starting 09/26/2021 until 09/26/2022 Bacteria identified in Urine by Culture Urine Culture [facility] Work Phone: End: 11-13-2024 C reactive protein [Mass/volume] in Serum or Plasma C-REACTIVE PROTEIN Lab Routine Rheumatoid arthritis involving multiple sites, unspecified whether rheumatoid factor present (HCC) Senile osteoporosis Every 3 months for 5 Occurrences starting 11/14/2023 until 11/13/2024 [facility] Comment on above: Every 3 months for 5 Occurrences startin g 11/14/2023 until 11/13/2024 C reactive protein [Mass/volume] in Serum or Plasma C-REACTIVE PROTEIN Lab Routine Rheumatoid arthritis involving multiple sites, unspecified whether rheumatoid factor present (HCC) Senile osteoporosis 11/25/2023 1:46 PM EDT [facility] C reactive protein [Mass/volume] in Serum or Plasma C-REACTIVE PROTEIN Lab Routine Rheumatoid arthritis involving multiple sites, unspecified whether rheumatoid factor present (HCC) Senile osteoporosis 02/24/2024 1:28 PM [facility] Work Phone: C reactive protein [Mass/volume] in Serum or Plasma C-REACTIVE PROTEIN Lab Routine Rheumatoid arthritis involving multiple sites, unspecified whether rheumatoid factor present (HCC) Senile osteoporosis 06/11/2024 1:54 PM EDT [facility] End: 11-13-2024 CBC W Auto Differential panel - Blood COMPLETE BLOOD COUNT AND DIFFERENTIAL Lab Routine Rheumatoid arthritis involving multiple sites, unspecified whether rheumatoid factor present (HCC) Senile osteoporosis Every 3 months for 5 Occurrences starting 11/14/2023 until 11/13/2024 [facility] Comment on above: Every 3 months for 5 Occurrences startin g 11/14/2023 until 11/13/2024 End: 11-13-2024 Comprehensive metabolic 2000 panel - Serum or Plasma COMPREHENSIVE METABOLIC PANEL Lab Routine Rheumatoid arthritis involving multiple sites, unspecified whether rheumatoid factor present (HCC) Senile osteoporosis Every 3 months for 5 Occurrences starting 11/14/2023 until 11/13/2024 [facility] Comment on above: Every 3 months for [...] until 03/25/2025 [facility] Comment on above: 1 Occurrences starting 02/24/2024 until 03/25/2025 CT Abdomen and Pelvi s W contrast IV CT ABD/PEL W IVCON Radiology Routine Iron deficiency anemia due to chronic blood loss Bilateral hip pain Generalized abdominal pain Abdominal bloating Personal history of breast cancer Occult blood in stools 03/19/2024 11:42 AM EST [facility] Work Phone: End: 03-25-2025 CT Chest W contrast IV CT CHEST W IVCON Radiology Routine Iron deficiency anemia due to chronic blood loss Bilateral hip pain Generalized abdominal pain Abdominal bloating Personal history of breast cancer Occult blood in stools 1 Occurrences starting 02/24/2024 until 03/25/2025 [facility] Comment on above: 1 Occurrences starting 02/24/2024 until 03/25/2025 CT Chest W contrast IV CT CHEST W IVCON Radiology Routine Iron deficiency anemia due to chronic blood loss Bilateral hip pain Generalized abdominal pain Abdominal bloating Personal history of breast cancer Occult blood in stools 03/19/2024 11:42 AM EST [facility] DXA Skeletal system.axial Views for bone density DXA-AXIAL SKELETON Radiology Routine On prednisone therapy Screening for osteoporosis 06/06/2023 2:38 PM EDT [facility] Work Phone: End: 09-05-2022 ECG COMPLETE [facility] Work Phone: Comment on above: 1 Occurrences starting 09/05/2021 until 09/05/2022 End: 11-13-2024 Erythrocyte sedimentation rate SEDIMENTATION RATE, WESTERGREN Lab Routine Rheumatoid arthritis involving multiple sites, unspecified whether rheumatoid factor present (HCC) Senile osteoporosis Every 3 months for 5 Occurrences starting 11/14/2023 until 11/13/2024 [facility] Comment on above: Every 3 months for 5 Occurrences startin g 11/14/2023 until 11/13/2024 Erythrocyte sedimentation rate SEDIMENTATION RATE, WESTERGREN Lab Routine Rheumatoid arthritis involving multiple sites, unspecified whether rheumatoid factor present (HCC) Senile osteoporosis 06/11/2024 1:54 PM EDT [facility] Work Phone: Ferritin [Mass/volum e] in Serum or Plasma FERRITIN Lab Routine Malignant neoplasm of lower-inner quadrant of right breast of female, estrogen receptor positive (HCC) Iron deficiency anemia due to chronic blood loss 02/24/2024 1:28 PM EST [facility] Work Phone: Ferritin [Mass/volum e] in Serum or Plasma FERRITIN Lab Routine Personal history of breast cancer Iron deficiency anemia due to chronic blood loss 09/21/2024 1:30 PM EDT [facility] Work Phone: Iron and Iron bindin g capacity panel - Serum or Plasma IRON AND TIBC Lab Routine Malignant neoplasm of lower-inner quadrant of right breast of female, estrogen receptor positive (HCC) Iron deficiency anemia due to chronic blood loss 02/24/2024 1:28 PM EST [facility] OCCULT BLD EXAM-DIAG OCCULT BLD EXAM-DIAG Microbiology Routine Iron deficiency anemia due to chronic blood loss Ordered: 03/12/2022 [facility] Work Phone: Comment on above: Ordered: 03/12/2022 PATHOLOGIST INTERPRETATION CBC/DIFF PATHOLOGIST INTERPRETATION CBC/DIFF Lab STAT Iron deficiency anemia due to chronic blood loss 03/22/2022 1:36 PM EST [facility] Work Phone: Patient Education [facility] Work Phone: Patient referral [facility] Work Phone: PT panel - Platelet poor plasma by Coagulation assay PROTHROMBIN TIME/PT Lab Routine Chronic anticoagulation 10/16/2021 9:44 AM EDT [facility] Work Phone: Urinalysis complete panel - Urine [facility] Work Phone: Urine culture [facility] End: 03-25-2025 XR HIP BILATERAL 5V PEL/AP/LAT EACH HIP XR HIP BILATERAL 5V PEL/AP/LAT EACH HIP Radiology Routine Bilateral hip pain 1 Occurrences starting 02/24/2024 until 03/25/2025 [facility] Work Phone: Comment on above: 1 Occurrences starting 02/24/2024 until 03/25/2025 XR HIP BILATERAL 5V PEL/AP/LAT EACH HIP XR HIP BILATERAL 5V PEL/AP/LAT EACH HIP Radiology Routine Bilateral hip pain 03/19/2024 10:00 AM EST [facility] Work Phone: End: 07-09-2024 XR Knee - bilateral 4 Views XR KNEE GENERAL 4V AP BOTH/PA BOTH/LAT/MERC BILATERAL Radiology Routine Primary osteoarthritis of both knees 1 Occurrences starting 06/10/2023 until 07/09/2024 [facility] Work Phone: Comment on above: 1 Occurrences starting 06/10/2023 until 07/09/2024 XR Knee - bilateral 4 Views XR KNEE GENERAL 4V AP BOTH/PA BOTH/LAT/MERC BILATERAL Radiology Routine Primary osteoarthritis of both knees 06/18/2023 8:26 AM EDT [facility] Work Phone: End: 07-05-2023 XR RIBS 2V AP/OBL RIGHT XR RIBS 2V AP/OBL RIGHT Radiology Routine Personal history of breast cancer Rib pain on right side 1 Occurrences starting 06/05/2022 until 07/05/2023 [facility] Work Phone: Comment on above: 1 Occurrences starting 06/05/2022 until 07/05/2023 XR RIBS 2V AP/OBL RIGHT XR RIBS 2V AP/OBL RIGHT Radiology Routine Personal history of breast cancer Rib pain on right side 06/05/2022 12:04 PM EDT [facility] Work Phone: End: 12-25-2023 XR WRIST GENERAL 3V PA/LAT/OBL RIGHT XR WRIST GENERAL 3V PA/LAT/OBL RIGHT Radiology Routine Pain in right wrist 1 Occurrences starting 11/25/2022 until 12/25/2023 [facility] Work Phone: Comment on above: 1 Occurrences starting 11/25/2022 until 12/25/2023 XR WRIST GENERAL 3V PA/LAT/OBL RIGHT XR WRIST GENERAL 3V PA/LAT/OBL RIGHT Radiology Routine Pain in right wrist 11/25/2022 2:29 PM EDT [facility] Work Phone: [facility] Immunizations Immunization Date Immunization Notes Care Provider Kevin evans 01-18-2021 influenza, high-dose , quadrivalent vaccine (FLUZONE HIGH DOSE QUADRIVALENT) Aby Bruner DO Work Phone: [facility] Work Phone: 01-18-2021 influenza virus vaccine, unspecified formulation Stella Preciado PA-C Work Phone: [facility] 11-22-2020 COVID-19 vaccine, ag e 12+ yr (PFIZER-BIONTEZ-Ticket - PURPLE TOP) Aby Bruner DO Work Phone: [facility] 05-04-2020 COVID-19 vaccine, fu ll dose (MODERNA) Aby Bruner DO Work Phone: [facility] 04-06-2020 COVID-19 vaccine, fu ll dose (MODERNA) Aby Bruner DO Work Phone: [facility] 12-18-2019 influenza, high-dose , quadrivalent vaccine (FLUZONE HIGH DOSE QUADRIVALENT) Aby Bruner DO Work Phone: [facility] 12-30-2018 influenza, high dose seasonal, preservative-free Aby Bruner DO Work Phone: [facility] Work Phone: 12-09-2017 influenza, high dose seasonal, preservative-free Aby Bruner DO Work Phone: [facility] 12-02-2016 influenza, high dose seasonal, preservative-free Aby Bruner DO Work Phone: [facility] Work Phone: 12-05-2015 influenza, high dose seasonal, preservative-free Aby Bruner DO Work Phone: [facility] 01-10-2015 pneumococcal conjuga te vaccine, 13 valent Aby Bruner DO Work Phone: [facility] Work Phone: 12-12-2014 influenza, high dose seasonal, preservative-free Aby Bruner DO Work Phone: [facility] 12-22-2013 influenza, seasonal, injectable Aby Bruner DO Work Phone: [facility] 01-09-2013 influenza virus vaccine, unspecified formulation Aby Bruner DO Work Phone: [facility] Work Phone: 11-17-2012 tetanus toxoid, redu issac diphtheria toxoid, and acellular pertussis vaccine, adsorbed Aby Bruner DO Work Phone: [facility] 01-16-2012 influenza virus vaccine, unspecified formulation Aby Bruner DO Work Phone: [facility] 06-07-2011 zoster vaccine, live Opal Bruner DO Work Phone: [facility] 02-01-2011 influenza virus vaccine, unspecified formulation Aby Bruner DO Work Phone: [facility] Work Phone: 01-29-2010 influenza virus vaccine, unspecified formulation Aby Bruner DO Work Phone: [facility] 12-24-2008 influenza virus vaccine, unspecified formulation Aby Bruner DO Work Phone: [facility] 01-20-2008 influenza virus vaccine, unspecified formulation Aby Bruner DO Work Phone: [facility] 12-21-2007 pneumococcal polysaccharide vaccine, 23 valent Aby Bruner DO Work Phone: [facility] Work Phone: 01-14-2007 influenza virus vaccine, unspecified formulation Aby Bruner DO Work Phone: [facility] Work Phone: 01-27-2006 influenza virus vaccine, unspecified formulation Aby Bruner DO Work Phone: [facility] 01-24-2005 influenza virus vaccine, unspecified formulation Aby Bruner DO Work Phone: [facility] Work Phone: 05-15-2002 tetanus and diphther ia toxoids, adsorbed, preservative free, for adult use (2 Lf of tetanus toxoid and 2 Lf of diphtheria toxoid) bAy Bruner DO Work Phone: [facility] Work Phone: NEGATED: Highlighted row has not occurred!01-12-2021 influenza, high-dose, quadrivalent vaccine (FLUZONE HIGH DOSE QUADRIVALENT) Aby Bruner DO Work Phone: [facility] Comment on above: Deferred: Patient Re fused - states she wants to wait to get it at scheduled appt in Nov Payers Date Payer Category [place] [id number] 2024 Medicaid [id number] 2023 Self-pay [id number] 2016 [facility] ANTHTHA ME DICARE SUPPLEMENT [id number] 2016 Unknown ANTHEM ANTHEM ME DICARE SUPPLEMENT [id number] 2016-Present [phone] [address] [place] [address] Indemnity [id number] 2016 Unknown ANTHEM ANTHEM ME DICARE SUPPLEMENT [id number] 2016-Present [phone] [address] [place] [address] Indemnity [id number] 2003 Medicare MEDICARE MEDICAR E A AND B [id number] 2003-Present [phone] [place] [address] Medicare [id number] 2003 Medicare [id number] 2003 Unknown [id number] 2001 Medicare [id number] Unknown [id number] Unknown [id number] Unknown [id number] Unknown [id number] .840.1.577904.3.579.2. 462 Unknown [id number] 2.840.1.452507.3.579.2. 462 Unknown [id number] 2.840.1.916305.3.579.2. 462 Unknown [id number] .0.1.451579.3.579.2. 462 Unknown [id number] 2.16.840.1.219841.3.579.2. 462 Unknown [id number] 2.16.840.1.026774.3.579.2. 462 Unknown [id number] 2.16.840.1.869102.3.579.2. 462 Unknown [id number] 2.16.840.1.682910.3.579.2. 462 Unknown [id number] 2.16.840.1.319159.3.579.2. 462 Unknown [id number] 2.16.840.1.314729.3.579.2. 462 Unknown [id number] 2.840.1.686021.3.579.2. 462 Unknown [id number] 2.16.840.1.709363.3.579.2. 462 Unknown [id number] 2.840.1.059956.3.579.2. 462 Unknown [id number] 2.840.1.558578.3.579.2. 462 Unknown [id number] 2.840.1.197711.3.579.2. 462 Unknown [id number] 2.16840.1.750838.3.579.2. 462 Unknown [id number] 2.16840.1.170217.3.579.2. 462 Unknown [id number] 2.840.1.597893.3.579.2. 462 Unknown [id number] 2.16840.1.844121.3.579.2. 462 Unknown [id number] 2.16840.1.320993.3.579.2. 462 Unknown [id number] 2.16.840.1.291096.3.579.2. 462 Unknown [id number] 2.16.840.1.411277.3.579.2. 462 Unknown [id number] 2.16840.1.393214.3.579.2. 462 Unknown [id number] 2.840.1.972606.3.579.2. 462 Unknown [id number] 2.840.1.495382.3.579.2. 462 Unknown [id number] 2.840.1.416126.3.579.2. 462 Unknown [id number] 2.840.1.620969.3.579.2. 462 Unknown [id number] 2.840.1.822447.3.579.2. 462 Unknown [id number] 2.840.1.534156.3.579.2. 462 Unknown [id number] 2.840.1.032203.3.579.2. 462 Unknown [id number] 2.840.1.572397.3.579.2. 462 Unknown [id number] 2.840.1.428682.3.579.2. 462 Unknown [id number] 2.840.1.500363.3.579.2. 462 Unknown [id number] 2.840.1.771935.3.579.2. 462 Unknown [id number] 2.840.1.768077.3.579.2. 462 Unknown [id number] 2.840.1.704518.3.579.2. 462 Unknown [id number] 2.840.1.200540.3.579.2. 462 Unknown [id number] 2.840.1.824766.3.579.2. 462 Unknown [id number] 2.840.1.610467.3.579.2. 462 Unknown [id number] 2.840.1.669402.3.579.2. 462 Unknown [id number] 2.840.1.928475.3.579.2. 462 Unknown [id number] 2.840.1.617188.3.579.2. 462 Unknown [id number] 2.16.840.1.706507.3.579.2. 462 Social History Date Type Detail Facility Start: 01-02-2022 End: 09-14-2024 Tobacco smoking status NHIS Never smoked tobacco [facility] Start: 06-05-2021 End: 09-21-2024 Alcohol intake Current non-drinker of alcohol (finding) [facility] Start: 01-23-2020 End: 01-18-2021 History SDOH Alcohol Frequency 1 [facility] Start: 01-23-2020 History SDOH Social Connections Phone 5 [facility] Start: 01-23-2020 History SDOH Social Connections Get Together 98 [facility] Start: 01-23-2020 History SDOH Social Connections Living 3 [facility] Start: 01-23-2020 End: 01-18-2021 History SDOH Stress 2 [facility] Start: 01-23-2020 Education 17 [facility] Start: 1935 Sex Assigned At Female [facility] Work Phone: Start: 04-05-2020 End: 01-21-2022 Exposure to SARS-CoV-2 (event) Not sure [facility] Start: 06-09-2021 End: 08-08-2021 Exposure to SARS-CoV-2 (event) Unable to assess [facility] Work Phone: Start: 07-03-2021 End: 04-07-2023 Tobacco smoking status NHIS Unknown if ever smoked [facility] Start: 02-15-2021 None [facility] Start: 02-15-2021 Non-smoker [facility] Start: 01-02-2022 Tobacco use and exposure Smokeless tobacco non-user [facility] Start: 01-23-2020 End: 07-15-2023 History of Social function [facility] Start: 01-23-2020 End: 07-15-2023 Social connection and isolation panel [facility] How often do you get together with friends or relatives? Patient refused [facility] Are you now , , , , never or living with a partner? [facility] How often to you hav e a drink containing alcohol? Never [facility] Do you feel stress - tense, restless, nervous, or anxious, or unable to sleep at night because your mind is troubled all the time - these days [OSQ] Only a little [facility] (I/We) worried wheth er (my/our) food would run out before (I/we) got money to buy more. Never true [facility] In the past 12 month s, was there a time when you were not able to pay the mortgage or rent on time? No [facility] Start: 06-06-2018 Gender identity Identifies as female gender (finding) [facility] Start: 07-28-2019 Sexual orientation Heterosexual (anna lama) [facility] Work Phone: Start: 06-18-2024 End: 06-18-2024 Sex Female (finding) [facility] Goals Date Patient Goal Desired Activity /State Functional Status Date Assessment Result Facility 08-13-2021 Are you deaf, or do you have serious difficulty hearing No 08/13/2021 2:10 PM EDT Tasha Lovell APRN.CNP No [facility] Work Phone: 08-13-2021 Are you blind, or do you have serious difficulty seeing, even when wearing glasses No 08/13/2021 2:10 PM EDT Tasha Lovell APRN.CNP No [facility] 08-13-2021 Do you have serious difficulty walking or climbing stairs No 08/13/2021 2:10 PM EDT Tasha Lovell APRN.CNP No [facility] 08-13-2021 Do you have difficul ty dressing or bathing No 08/13/2021 2:10 PM EDT Tasha Lovell APRN.CNP [facility] 08-13-2021 Because of a physica l, mental, or emotional condition, do you have difficulty doing errands alone such as visiting a physician's office or shopping No 08/13/2021 2:10 PM EDT Tasha Lovell APRN.CNP No [facility] Mental Status Date Assessment Result Facility 03-06-2022 Cognitive function Voice/Name [facility] Work Phone: 12-28-2021 Cognitive function Level Of Cons ciousness Awake;Alert;Follows Commands [facility] Work Phone: 10-18-2021 Cognitive function Level Of Cons ciousness Awake;Alert;Appropriate;Fol lows Commands [facility] Work Phone: 08-23-2021 Cognitive function Level Of Cons ciousness Awake;Alert;Appropriate [facility] Work Phone: 08-23-2021 Cognitive function Voice/Name [facility] Work Phone: 08-13-2021 Because of a physica l, mental, or emotional condition, do you have serious difficulty concentrating, remembering, or making decisions No 08/13/2021 2:10 PM EDT Liliya, Tasha Stone APRN.CHASSIS INSPECTOR No [facility] Clinical Notes 05-05-2020 to 09-22-2024 Telephone Encounter - Parul Gu - 09/22/2024 10:58 AM EDTTelephone Encounter - Gerardo Valencia, Parul - 09/22/2024 10:58 AM EDTTelephone Encounter - Parul Gu - 09/22/2024 10:09 AM EDT Note Date & Type Note Facility 09-22-2024 Telephone encounter Note Eloisa called back and confirmed the below information and appointment in March, Parul Valencia [facility] 09-22-2024 Miscellaneous Notes Eloisa called back and confirmed the below information and appointment in March, Parul Valencia I called and left a message for Eloisa to call back to receive the below information and to confirm the scheduled follow-up visit for 03/2025. Parul Valencia Please inform pt. and daughter that iron studies look good. Follow up in 6 months with CBC/iron studies. Thank you. Cassidy Arreola APRN.CNP documented in this encounter [facility] 09-22-2024 Telephone encounter Note I called and left a message for Eloisa to call back to receive the below information and to confirm the scheduled follow-up visit for 03/2025. Parul Valencia [facility] 09-22-2024 Telephone encounter Note Please inform pt. and daughter that iron studies look good. Follow up in 6 months with CBC/iron studies. Thank you. Cassidy Arreola APRN.CHASSIS INSPECTOR [facility] Work Phone: 09-21-2024 History of Present illness Narrative Chief Complaint Patient presents with: Established Patient HPI: Christian Landrum is a 89 year old female who presents here today [...] for both; strong for ER, moderate for NE). HER-2 3+. Had been using Estrace cream [...] Wire Localization: Wire absent Lymph Node Sampling: [place] lymph node(s) Tumor size: Size of largest [...] tamoxifen therapy. S/p underwent hysteroscopy D&C at [facility] on 08/23/[address] Hebert. Path. Benign. Pt. resides at [place]. Pt. here today with her daughter. Pt. last received two doses of iron sucrose 2023-after + stool cards. Multiple falls over past few months. Last one was last week-was seen in [facility] ED-CT head/neck done-neg. per daughter. On ATB for UTI. Pt. declined repeat CT chest from CT done in 2024. Appetite:"Good. Last night not good." Energy level:"I don't have much." Denies fevers. Resp:denies cough or sob, occ jennings-followed by PULM-using bi-pap, h/o allergies Cardiac:denies chest pain/palpitations h/o A.fib.-followed by Cards GI:denies abd pain (H/o IBS, colitis), n/v, moving bowels regularly-does not tolerate dairy, pt declines colonoscopy-was seen by GI/ at [facility]. :denies dysuria/hematuria-chronic UTI-followed by Urology Extrem:h/o RA, joint pain dx in her 40's -followed by Rheum-off of methotrexate, occ. pred bursts for RA flares-on pred currently 15mg Endo:denies hot flashes Neuro:+neuropathy to feet Skin:denies rashes/lesions Heme:denies nose bleeds or obvious rectal bleeding The ROS is otherwise negative. Past medical history, appointments, medications, allergies reviewed. No changes. EXAM: BP 130/64 Pulse 75 Temp 36.1 C (96.9 F) (Temporal) SpO2 97% APPEARANCE Well appearing, [...] normal, no suspicious rashes or lesions LABS: Pending ASSESSMENT/PLAN: 1. 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 H/o Stage IIA left sided breast cancer. Received 3 cycles of TC. Completed 5 years' worth of AI/tamoxifen. 2. Iron deficiency anemia due to chronic blood loss - ICD9: 280.0, ICD10: D50.0 - No concerning findings on exam in regards to breast cancer. - Labs pending. - Tolerated tamoxifen well. - Completed 5 years tamoxifen 2021. - Continue follow up with her specialists. - Needs port flushes. - Follow up pending today's labs. - Pt. aware to call office any questions/concerns. The patient indicates understanding of these issues and agrees with the plan. All documentation from previous visit of 02/24/24-Dr. Bonilla/myself was copied and pasted, documentation has been reviewed and edited as necessary for today's visit. Cassidy Arreola APRN.INGE documented in this encounter [facility] 09-21-2024 History of Present illness Narrative Patient is here for IVAD port flush/blood draw per Nursing [facility] protocol. IVAD is located in right upper chest. Site cleansed with Chloraprep IVAD accessed with a #20 gauge 3/4" non-coring Gripper needle Flush with 5cc's Normal Saline. Blood Return: Good. 10 cc's blood aspirated and discarded. Blood drawn for CBC and CMP. Flushed with: 20 ml Normal Saline. Non-coring needle removed. Paper tape applied to puncture site. Site negative for redness, edema or tenderness. Patient tolerated procedure well. documented in this encounter [facility] 09-14-2024 Radiology Diagnostic study note [facility] Imaging Services [address], [place] [id number] Elbow min 3 Views MR#: [id number] Acct: [id number] Name: CHRISTIAN LANDRUM Rep #: [id number] : 1935 F 89 From: Tegan Brito MD PCP: OLIVE Puckett Status: REG ER Study:Elbow min 3 Views Date of Exam: Exam# [id number] Ordering Dr: Clementina Torres DO PROCEDURE: ELBOW MIN 3 VIEWS 09/14/2024 REASON FOR EXAM: PAIN TECHNIQUE: ELBOW MIN 3 VIEWS COMPARISON: None FINDINGS: There is no fracture or dislocation identified. There is no visible joint effusion. Mineralization is normal. There is no visible atherosclerosis. RAD/Elbow min 3 Views IMPRESSION: No fracture or dislocation is identified. Reading Location: [facility] CC: WATER TREATMENT PLANT OPERATOR-C Galina Horner; Sung Torres DO ~ Personnel Research Psychologist: Signed [facility] 09-14-2024 Radiology Diagnostic study note [facility] Imaging Services [address] [place], [place] [address] Pelvis 1 or 2 Views MR#: [id number] Acct: [id number] Name: CHRISTIAN LANDRUM Rep #: [id number] : 1935 F 89 From: Tegan Brito MD PCP: OLIVE Puckett Status: REG ER Study:Pelvis 1 or 2 Views Date of Exam: 09/14/24 Exam# [id number] Ordering Dr: Clementina Torres DO PROCEDURE: PELVIS 1 OR 2 VIEWS 09/14/2024 REASON FOR EXAM: PAIN TECHNIQUE: PELVIS 1 OR 2 VIEWS COMPARISON: None FINDINGS: There is no fracture identified. The SI joints are aligned. The sacral foramina appear intact. 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 Radiopaque sutures are noted in the mid pelvis. RAD/Pelvis 1 or 2 Views IMPRESSION: No fracture is identified. Reading Location: [facility] CC: SAVANNAHC Galina Horner; Sung Torres DO ~ Personnel Research Psychologist: Signed [facility] 09-14-2024 Radiology Diagnostic study note [facility] Imaging Services [address] [place], [place] [id number] Spine Cervical without Contras MR#: [id number] Acct: [id number] Name: CHRISTIAN LANDRUM Rep #: [id number] : 1935 F 89 From: Tegan Brito MD PCP: OLIVE Puckett Status: REG ER Study:Spine Cervical without Contras Date of Exam: 09/14/24 Exam# [id number] Ordering Dr: Clementina Torres DO PROCEDURE: SPINE CERVICAL WITHOUT CONTRAS 09/14/2024 REASON FOR EXAM: FALL Trauma TECHNIQUE: SPINE CERVICAL WITHOUT CONTRAS Coronal and Sagittal reconstruction series were provided. CONTRAST: None One or more dose reduction techniques were used (e.g., Automated exposure control, adjustment of the mA and/or kV according to patient size, use of iterative reconstruction technique. RADIATION DOSE SUMMARY: DLP: 1224.85 mGycm COMPARISON: August 07, 2019 FINDINGS: Visualized skull base and craniocervical junction demonstrate no evidence of fracture or dislocation. There is no evidence of cervical spine fracture. Alignment is normal. No soft tissue abnormality is seen. There is loss of disc height at each level. 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 Visualized portions of the lung apices demonstrate no evidence of pneumothorax. CT/Spine Cervical without Contras IMPRESSION: There is mild central canal stenosis at C4-5, secondary to disc and osteophyte protrusion, similar to the prior. There is no visible acute traumatic injury. Reading Location: [facility] CC: OLIVE Horner; Sung Torres DO ~ Personnel Research Psychologist: Signed [facility] 09-14-2024 Radiology Diagnostic study note [facility] Imaging Services [address] [place] [address] Brain/Head without Contrast MR#: [id number] Acct: [id number] Name: CHRISTIAN LANDRUM Rep #: [id number] : 1935 F 89 From: Tegan Brito MD PCP: OLIVE Puckett Status: REG ER Study:Brain/Head without Contrast Date of Exa m: 09/14/24 Exam# [id number] Ordering Dr: Clementina Torres DO EXAM: NONCONTRAST CT SCAN OF THE HEAD CLINICAL HISTORY: Fall, hit back of head COMPARISON: December 17, 2018, Aug 07 2019 TECHNIQUE: Serial axial series through the head were obtained without contrast. 2-D coronaland sagittal reformats were then obtained. DLP = 428.74 mGy-cm FINDINGS: Brain: There is no acute large territorial infarct, intracranial hemorrhage, midline shift or mass effect. There are atherosclerotic vascular calcifications involving the bilateral carotid siphons.The sella and pineal gland regions appear unremarkable. There is no evidence of cerebellar tonsillar herniation. Ventricles: There is no acute hydrocephalus. Basilar cisterns are patent. Paranasal sinuses: Well-aerated Mastoid air cells: Well-aerated. Calvarium: The bony calvarium is intact. Orbits: The bilateral globes are symmetric, without retrobulbar compressive masslesion or hemorrhage. CT/Brain/Head without Contrast IMPRESSION: No acute intracranial pathology. Reading Location: [facility] CC: OLIVE Torres DO ~ Personnel Research Psychologist: Signed [facility] 08-30-2024 Telephone encounter Note August 30, 2024 8:14 AM 1st attempt to schedule - Left detailed voicemail message If patient calls back please help schedule 3 mo follow up with Dr. Monterroso (SARAH) or Aileen (Stevan) Postponed for 2nd attempt [facility] 08-30-2024 Miscellaneous Notes August 30, 2024 8:14 AM 1st attempt to schedule - Left detailed voicemail message If patient calls back please help schedule 3 mo follow up with Dr. Monterroso (SARAH) or Aileen (Stevan) Postponed for 2nd attempt documented in this encounter [facility] 08-27-2024 History of Present illness Narrative Images from [...] visit. Either the patient or their legal contact representative has been informed of the risks [...] since last visit she has had 5 "flares" which lasted about 2 days each. She [...] Take 1 tablet by mouth once daily. hqckgsg-zrgfrdcjr-kxfokfb D3 500 mg-5 mcg (200 unit) per [...] uncontrollable frequent soft stools, frequent UTI's at [facility] She was diagnosed with colitis which is a new diagnosis. The WATER TREATMENT PLANT OPERATOR at the [facility] increased her prednisone from [...] this encounter [facility] 08-13-2024 Evaluation note Diagnosis Onset Date Resolution Fall acute August 13, 2024 2:06pm Fx distal ulna-closed acute August 13, 2024 2:06pm [place] [employer] Work Phone: 1(478) 647-691705-30-2025 Evaluation note* Diagnosis Onset Date Resolution Status Admit Date Fall acute August 13, 2024 2:06pm Fx distal ulna-closed acute August 13, 2024 2:06pm Fall acute August 18, 2024 2:33pm Fx distal ulna-closed acute Aug 2:33pm [employer] Work Phone: 1(358) 266-478305-30-2025 Evaluation note* Diagnosis Onset Date Resolution Status Admit Date Fall acute August 13, 2024 2:06pm Fx distal ulna-closed acute August 13, 2024 2:06pm Fall acute August 18, 2024 2:33pm Fx distal ulna-closed acute Aug 2:33pm Fall acute September 03 1:55pm Fx distal ulna-closed acute Aug 1:55pm [employer] Work Phone: 1(515) 733-881205-30-2025 Evaluation note* Diagnosis Onset Date Resolution Status Admit Date Fall acute August 13, 2024 2:06pm Fx distal ulna-closed acute August 13, 2024 2:06pm Fall acute August 18, 2024 2:33pm Fx distal ulna-closed acute Fernando 2024 2:33pm Fall acute September 03 1:55pm Fx distal ulna-closed acute Fernando e 2024 1:55pm Change in bowel habits acute Ju ne 2024 2:24pm [place] [employer] Work Phone: 1(508) 587-537505-30-2025 Evaluation note* Diagnosis Onset Date Resolution Status Admit Date Fall acute August 13, 2024 2:06pm Fx distal ulna-closed acute August 13, 2024 2:06pm Fall acute August 18, 2024 2:33pm Fx distal ulna-closed acute Fernando 2024 2:33pm Fall acute September 03 1:55pm Fx distal ulna-closed acute Fernando 2024 1:55pm Change in bowel habits acute Ju 2024 2:24pm Fall acute September 24 1:58pm Fx distal ulna-closed acute Sep 1:58pm [place] [employer] Work Phone: 1(354) 851-978505-30-2025 Evaluation note* Diagnosis Onset Date Resolution Status Admit Date Fall acute August 13, 2024 2:06pm Fx distal ulna-closed acute August 13, 2024 2:06pm Fall acute August 18, 2024 2:33pm Fx distal ulna-closed acute Aug 2:33pm Fall acute September 03 1:55pm Fx distal ulna-closed acute Fernando e 2024 1:55pm Change in bowel habits acute Ju ne 2024 2:24pm Fall acute September 24 1:58pm Fx distal ulna-closed acute Sep 1:58pm Fx distal ulna-closed acute Aug ust 2024 1:53pm [place] [employer] Work Phone: 1(109) 125-211605-25-2025 Radiology Diagnostic study note [facility] Imaging Services [address] [place], [place] [id number] CT Abd/Pelvis W/WO Contrast MR#: [id number] Acct: [id number] Name: CHRISTIAN LANDRUM Rep #: [id number] : 1935 F 89 From: Celi Man MD PCP: Dr. Payam Reyna MD Status: R EG CLI Study:CT Abd/Pelvis W/WO Contrast Date of Exa m: 08/06/24 Exam# [id number] Ordering Dr: Hiwot Abdullahi MD PROCEDURE: CT [...] the stomach suggestive of gastritis. Reading Location: [place] [address] CC: Dr. Payam Reyna MD; Dr. Hiwot Abdullahi MD ~ Personnel Research Psychologist: Signed [facility]04-02-2025 Telephone encounter Note* Telephone Encounter - Daly Kaiser LPN - 06/16/2024 3:[address] Monterroso please advise outside labs thank you. Daly Kaiser LPN June 16, 2024 3:40 PM Media Information File Link Scan on 06/16/2024 3:39 PM by Daly Kaiser LPN: OUTSIDE LAB RESULTS 06/16/24 [facility]04-02-2025 Miscellaneous Notes* Telephone Encounter - Daly Kaiser LPN - 06/16/2024 3:[address] Monterroso please advise outside labs thank you. Daly Kaiser LPN June 16, 2024 3:40 PM Media Information File Link Scan on 06/16/2024 3:39 PM by Daly Kaiser LPN: OUTSIDE LAB RESULTS 06/16/24 [facility] History of Present illness Narrative* Thalia Monterroso [...] visit. Either the patient or their legal contact representative has been informed of the risks [...] 2012 (elevated ESR and CRP at the [facility]). She started to develop symptoms of inflammatory [...] since last visit she has had 5 "flares" which lasted about 2 days each. She [...] breast of female, estrogen receptor positive ([facility]) 06/03/2017 Mitral valve disorders(424.0) and irregular heartbeat on occasion stress related Mixed stress and urge urinary incontinence Osteoarthrosis, unspecified whether generalized or localized, other specified sites 07/22 vit D 41 Other diseases of pharynx, not elsewhere classified(478.29) Other extrapyramidal disease and abnormal movement disorder PMH - PAST MEDICAL HISTORY OF benign mass on liver PMR (polymyalgia rheumatica) ([facility]) 2012 Pure hypercholesterolemia Snoring Squamous cell cancer [...] Take 1 tablet by mouth once daily. rrxiorf-pzuetpnxp-tvbdvsf D3 500 mg-5 mcg (200 unit) per [...] 05/21/2024 10:55 AM EST Zoom Daughter Eloisa (KASANDRA) will [...] [facility] History of Present illness Narrative* Kamila Burns, RT(R) - 03/19/2024 11:00 AM EST Radiology [...] PATIENT PRESENTS WITH AN IMPLANTABLE OR ATTACHED PAYROLL PROCESSOR: No ALLERGIES: Reviewed and unchanged CONTRAST ALLERGY: [...] PERIPHERAL IV DATA: power port accessed by [facility] RADIOLOGY DEPARTMENT: CT; Exam(s) Completed: Chest Abdomen Pelvis SIGNATURE: RT Rajinder(R) PATIENT NAME: Christian Landrum DATE: March 19, 2024 TIME: 2:31 PM [facility] History of Present illness Narrative* Page Ruiz [...] PATIENT PRESENTS WITH AN IMPLANTABLE OR ATTACHED PAYROLL PROCESSOR: No RADIOLOGY DEPARTMENT: General X-ray: Exam(s) Completed: Pelvis X-Ray: Pelvis with Hip Bilateral PERIPHERAL IV DATA: Not applicable SIGNED BY: RT Nithin(R) March 19, 2024 10:49 AM [facility] History of Present illness Narrative* Vania Horan RN - 03/12/2024 2:26 PM EST Patient's daughter states "mom had some pain, aches, after her last Iron when it was pushed in" Infusing this dose over 30 minutes with daughter in agreement. [facility] [place] History of Present illness Narrative* Thalia Monterroso MD - 03/05/2024 9:08 AM EST Images from the original note were not included. RHEUMATOLOGY CLINIC FOLLOW-UP NOTE PROVIDER: Thalia Monterroso MD [facility] VISIT This Team Access Model visit is a virtual encounter. It required patient- provider interaction for the medical decision making as documented below. I have communicated my name and active licensure. The patient's identity and physical location wereverified at the time of this visit. Either the patient or their legal contact representative has been informed of the risks and benefits of -- and alternatives to -- treatment through a remote evaluation andconsents to proceed with the evaluation remotely. SUBJECTIVE: CC: routine follow up for RA (CCP 44, RF neg, non-erosive) Last seen: 11/14/2023 (with Thalia Ray) Current treatment: Prednisone 10 mg/day Infliximab 200 [...] 2012 (elevated ESR and CRP at the [facility]). She started to develop symptoms of inflammatory [...] since last visit she has had 5 "flares" which lasted about 2 days each. She [...] Take 1 tablet by mouth once daily. qedcwol-umpwliwbi-wdlqqwu D3 500 mg-5 mcg (200 unit) per [...] (started 08/28/23, most recent infusion 01/28/24) Seeing [facility], getting tramadol 50 mg every 6 hours [...] in [facility] encounter[facility] [place] Telephone encounter Note * Telephone Encounter - Cassidy Arreola APRN.CNP - 03/03/2024 9:56 AM EST Noted. Cassidy Arreola APRN.CHASSIS INSPECTOR [facility] [place] Work Phone: 1(714) 594-656712-18-2024 Miscellaneous Notes* Telephone Encounter - Cassidy Arreola APRN.INGE - 03/03/2024 9:56 AM EST Noted. Cassidy Arreola APRN.CHASSIS INSPECTOR * Telephone Encounter - Sadie Gann LPN - 03/02/2024 4:37 PM EST Spoke with pt. Daughter , she informed she is not sure if RA is the cause of pt. Pain, or if it is from the iron infusions. CRP and Sed rates are both elevated, they have appt. With vamp wetter oniday . Will keep appts. 03/08 and [...] appointments that were requested. Patient is seeing vamp wetter on Friday. Transferred call to nurse. Meredith [...] in this encounterSelect [facility] [place]12-17-2024 Telephone encounter Note * Telephone Encounter - Sadie Gann LPN - 03/02/2024 4:37 PM EST Spoke with pt. Daughter , she informed she is not sure if RA is the cause of pt. Pain, or if it is from the iron infusions. CRP and Sed rates are both elevated, they have appt. With vamp wetter oniday . Will keep appts. 03/08 and 03/12 unless she becomes more painful , will have CT scans on 03/19 , and depending on those results will make a decision to proceed further or stop. Sadie Gann LPN [facility] [place]12-17-2024 Telephone encounter Note* Telephone Encounter - Meredith Alonzo - 03/02/2024 4:29 PM EST Spoke with patient's daughter. They are not sure if the pain is from her RA of if her cancer is active again. Cancelled the 2 appointments that were requested. Patient is seeing vamp wetter on Friday. Transferred call to nurse. Meredith Alonzo [facility] [place]12-17-2024 Telephone encounter Note* Telephone Encounter - Anneliese Garcia LPN - 03/02/2024 4:12 PM EST Tried to call daughter, no answer. Wanted to see if her pain was from her rheumatoid arthritis, which Cassidy noted in her OV on 02/24/24. Please assist in rescheduling. Anneliese Garcia LPN [facility] [place]12-17-2024 Telephone encounter Note* Telephone Encounter - Alvina Mane - 03/02/2024 4:01 PM EST Daughter is calling to state patient is in a lot of pain, hard to even get out of her chair. They want to cancel 03/03 and 03/05 and would like to get those visits rescheduled. [facility] [place]12-10-2024 History of Present illness Narrative* Cassidy Arreola APRN.CHASSIS INSPECTOR - 02/24/2024 1:49 PM EST Chief Complaint Patient presents with: Established Patient HPI: Christian Landrum is a 88 year old female who presents here today for follow up LEAI/breast cancer. Per Dr. Bonilla's previous note: H/o [...] for both; strong for ER, moderate for NE). HER-2 3+. Had been using Estrace cream [...] Wire Localization: Wire absent Lymph Node Sampling: [place] lymph node(s) Tumor size: Size of largest [...] tamoxifen therapy. S/p underwent hysteroscopy D&C at [facility] on 08/23/[address] Hebert. Path. Benign. Pt. resides at [place]. Pt. here today with her daughter. Drop in Hgb. +stool cards. +abd pain/bloating. "Allover pain." H/o RA. Appetite:"Normally good. Last night not good." Wt. up 9# over past year. Energy level:"Not a lot." Denies low grade fevers recently. Resp:denies cough [...] currently Endo:denies hot flashes Neuro:+neuropathy to feet "I still feel it sometimes." Skin:denies rashes/lesions Heme:denies nose bleeds or obvious [...] k/uL 0.67 (L) 0.54 (L) 0.92 (L) Aurora% % 12.3 8.8 12.1 Abs Aurora <0.87 k/uL 1.02 (H) 0.46 1.15 (H) [...] ICD10: Z08, Z85.3 (primary diagnosis) pT1b pN0(sln) ER/NE positive, HER2 positive invasive ductal carcinoma the [...] discussed with the Patient or Patient's Authorized Door Attendant. Asapplicable, any other physician, advance practice provider, medical student, or other health professional student that will be observing or involved in the sensitive examination for educational or training purposes was discussed with the Patient or Authorized Door Attendant. The Patient or Authorized Door Attendant has agreed to proceed with the sensitive [...] in this encounterSelect [facility] [place]12-10-2024 History of Present illness Narrative* Vania Horan RN - 02/24/2024 8:07 AM EST . documented in this encounterSelect [facility] [place]11-08-2024 Telephone encounter Note * Telephone Encounter - Nicole Childs MA - 01/23/2024 4:33 PM EST Spoke with louisa Informed her of increased prednisone instructions and I will also fax this phone encounter. Louisa will speak with patients daughter for them to take note if they feel she has a flare up 1-2 weeks prior to infusion [facility] [place]11-08-2024 Miscellaneous Notes* Telephone Encounter - Nicole Childs [...] Dr. Monterroso's instructions to the facility at [phone] Last ov 11/14/23 Rheumatoid arthritis involving multiple [...] Lymph 1.00 - 4.00 k/uL 0.54 (L) Aurora% % 8.8 Abs Aurora <0.87 k/uL 0.46 Eosin% % 0.4 Abs [...] 01/23/2024 12:31 PM EST Louisa, nurse at [place] facility, feels patient may be having a flare. Has lots of pain in herhands. Asking for call back please. Louisa at [facility] [phone] Thanks! Selma Mcdaniel, ERIK documented in this encounterSelect [facility] [place]11-08-2024 Telephone encounter Note * Telephone Encounter - [...] her dose. [facility] [place]11-08-2024 Telephone encounter Note* Telephone Encounter - ChildsNicole rueda MA - 01/23/2024 3:03 PM EST Spoke [...] Dr. Monterroso's instructions to the facility at [phone] Last ov 11/14/23 Rheumatoid arthritis involving multiple [...] Lymph 1.00 - 4.00 k/uL 0.54 (L) Aurora% % 8.8 Abs Aurora <0.87 k/uL 0.46 Eosin% % 0.4 Abs [...] mg/dL 0.6 Legend: (L) Low (H) High [facility]11-08-2024 Telephone encounter Note* Telephone Encounter - Selma Mcdaniel - 01/23/2024 12:31 PM EST Louisa, nurse at [facility], feels patient may be having a flare. Has lots of pain in herhands. Asking for call back please. Louisa at [facility] [phone] Thanks! ERIK Leyva [facility]09-26-2024 History of Present illness Narrative* Andria Joyner RN - 12/11/2023 11:27 AM EDT Denies any dental issues or concerns. No extractions or root canals in the last 6 months. Daughter present. Andria Joyner RN documented in this encounterSelect Medical [facility]ty [facility] [place]09-19-2024 History of Present illness Narrative* Cesia Rangel RN - 12/04/2023 10:22 AM EDT Secure chat, as well as Page sent to Dr. Monterroso regarding Reclast. Unable to reach at this time. Daughter aware and ok with waiting until next tx. Cesia Rangel RN documented in this encounterSelect Medical Specialty Hospital - [place]09-11-2024 Telephone encounter Note * Telephone Encounter - Sadie Gann LPN - 11/26/2023 11:51 AM EDT Faxed, spoke with chetan at [facility] , they did receive. Sadie Gann LPN [facility] [place]09-11-2024 Miscellaneous Notes* Telephone Encounter - Sadie Gann LPN - 11/26/2023 11:51 AM EDT Faxed, spoke with chetan at [facility] , they did receive. Sadie Gann LPN * Telephone Encounter - Page Robles - 11/26/2023 10:39 AM EDT Received call from [facility]. They stated a fax came thru this morning, however, they only received Cover Page. Please resubmit. [phone] * Telephone Encounter - Sadie Gann LPN - 11/26/2023 9:43 AM EDT spoke with pts. SLAUGHTER, given information concerning her iron studies. Also [facility] so additional labs can [...] brings labs and note from Herminia Horner [employer] [facility]. Daughter states -pt has had [...] to starting Reclast. Will need to let [facility] (fax [phone]) and daughter Eloisa. Anneliese Garcia LPN documented in this encounterSelect Medical [facility]ty [facility] - [place]09-11-2024 Telephone encounter Note * Telephone Encounter - Page Robles - 11/26/2023 10:39 AM EDT Received call from [facility]. They stated a fax came thru this morning, however, they only received Cover Page. Please resubmit. [phone] [facility] [place] Work Phone: [phone]) 382-755209-11-2024 Telephone encounter Note* Telephone Encounter - Sadie Gann LPN - 11/26/2023 9:43 AM EDT spoke with pts. BRENNANA, given information concerning her iron studies. Also informed Dr. Bonilla notation was sent to [facility] attn: herminia horner so additional labs can be done. Daughter voiced understanding. Sadie Gann LPN [facility] [place]09-10-2024 Telephone encounter Note* Telephone Encounter - Sal [...] Bonilla DO [facility] [place]09-10-2024 Telephone encounter Note* Telephone Encounter - Anneliese Garcia LPN - 11/25/2023 1:52 PM EDT Pt here today for labs. Daughter brings labs and note from Herminia Horner [employer] from prison. Daughter states -pt has had [...] to starting Reclast. Will need to let [facility] [employer] (fax [phone]) and daughter Eloisa. Anneliese Garcia LPN [facility] [place]09-10-2024 Telephone encounter Note* Telephone Encounter - Sal Bonilla DO - 11/25/2023 12:00 PM EDT Thank you. Filed. Sal Bonilla DO [facility] [place]09-10-2024 Miscellaneous Notes* Telephone Encounter - Sal Bonilla DO - 11/25/2023 12:00 PM EDT Thank you. Filed. Sal Bonilla DO * Telephone Encounter - Anneliese Garcia LPN - 11/25/2023 11:56 AM EDT Pended lab orders. Anneliese Garcia LPN documented in this encounterSelect Medical Specialty [facility] [place]09-10-2024 Telephone encounter Note * Telephone Encounter - Anneliese Garcia LPN - 11/25/2023 11:56 AM EDT Pended lab orders. Anneliese Garcia LPN [facility] [place]08-30-2024 History of Present illness Narrative* Thalia Monterroso MD - 11/14/2023 10:55 AM EDT Images from the original note were not included. RHEUMATOLOGY CLINIC FOLLOW-UP NOTE PROVIDER: Thalia Monterroso MD [facility] VISIT This Team Access Model visit is a virtual encounter. It required patient- provider interaction for the medical decision making as documented below. I have communicated my name and active licensure. The patient's identity and physical location wereverified at the time of this visit. Either the patient or their legal contact representative has been informed of the risks and benefits of -- and alternatives to -- treatment through a remote evaluation andconsents to proceed with the evaluation remotely. SUBJECTIVE: CC: routine follow up for RA (CCP 44, RF neg, non-erosive) Last seen: 07/04/2023 (with Thalia Ray) Current treatment: Prednisone 6 mg/day Plaquenil 200 [...] 2012 (elevated ESR and CRP at the [facility]). She started to develop symptoms of inflammatory [...] since last visit she has had 5 "flares" which lasted about 2 days each. She [...] sleep apnea Comment: use CPAP SEVERAL YRS 2012: UTI (lower urinary tract infection) Comment: frequent [...] Take 1 tablet by mouth once daily. jlarqkz-wihfjnmyt-sofkufj D3 500 mg-5 mcg (200 unit) per [...] with more than 50% of the total ijaw-ei-riis time of the visit in counseling / coordination of care. documented in this encounterSelect Medical Specialty Hospital - [place]07-25-2024 History of Present illness Narrative* Andria Joyner RN - 10/09/2023 11:11 AM EDT Pt requesting to have the infusion over 2 hours. States the two previous infusions were fine and noside effects during or when she got home. Andria Joyner RN documented in this encounterSelect Medical Specialty Hospital - [place]06-05-2024 Telephone encounter Note * Telephone Encounter - Page Robles - 08/20/2023 11:43 AM EDT Scheduled 1st treatment with [facility]. 3 cycles entered. Start email sent [facility] [place] Work Phone: [phone]) 888-169906-05-2024 Miscellaneous Notes* Telephone Encounter - Page Robles - 08/20/2023 11:43 AM EDT Scheduled 1st treatment with [facility]. 3 cycles entered. Start email sent * Telephone Encounter - Page Robles - 08/19/2023 3:16 PM EDT Please call Loli at [facility] when ready to schedule. [phone] * Telephone Encounter - Page Robles - 08/19/2023 2:13 PM EDT Eloisa Moser called stating that [facility] will be calling to schedule Renflexis in [place]. Dr. Monterroso ordering. Please review and advise. documented in this encounterSelect Medical Specialty Hospital - [place]06-04-2024 Telephone encounter Note * Telephone Encounter - Page Robles - 08/19/2023 3:16 PM EDT Please call Loli at [facility] when ready to schedule. [phone] [facility] [place]06-04-2024 Telephone encounter Note* Telephone Encounter - Elie Valencia Page - 08/19/2023 2:13 PM EDT Eloisa Moser called stating that [facility] will be calling to schedule Renflexis in [place]. Dr. Monterroso ordering. Please review and advise. [facility] [place]-04-2024 History of Present illness Narrative* Cassidy Arreola APRN.CHASSIS INSPECTOR - 08/19/2023 11:29 AM EDT Chief Complaint [...] for both; strong for ER, moderate for NE). HER-2 3+. Had been using Estrace cream [...] Wire Localization: Wire absent Lymph Node Sampling: [place] lymph node(s) Tumor size: Size of largest [...] tamoxifen therapy. S/p underwent hysteroscopy D&C at [facility] on 08/23/[address] Hebert. Path. Benign. Pt. resides at [place]. Pt. here today with her daughter. Last received iron sucrose 2022. No new concerns today. Per daughter-she has had several falls. Appetite:"Good with prednisone, not great the past few days." Energy level:"Not a lot." Denies fevers or recent illness. Resp:denies cough [...] flares Endo:denies hot flashes Neuro:+neuropathy to feet "sometimes better, sometimes worse." Skin:denies rashes/lesions Heme:denies bleeding The ROS is [...] - 4.00 k/uL 0.84 (L) 0.67 (L) Aurora% % 13.6 12.3 Abs Aurora <0.87 k/uL 1.41 (H) 1.02 (H) Eosin% [...] ICD10: C50.311, Z17.0 (primary diagnosis) pT1b pN0(sln) ER/NE positive, HER2 positive invasive ductal carcinoma the [...] in this encounterSelect Medical [facility]ty [facility] [place]06-04-2024 History of Present illness Narrative* Vania Horan, RN - 08/19/2023 7:21 AM EDT Patient is here for IVAD port flush/blood draw per [facility] protocol. IVAD is located in right upper chest. Site cleansed with Chloraprep IVAD accessed with a #20 gauge 3/4" non-coring Gripper needle Flush with 5cc's Normal Saline. Blood Return: Good. 10 cc's blood aspirated and discarded. Blood drawn for CBC and CMP. Flushed with: 20 ml Normal Saline. Non-coring needle removed. Paper tape applied to puncture site. Site negative for redness, edema or tenderness. Patient tolerated procedure well. documented in this encounterSelect Medical Specialty Hospital - [place]05-10-2024 Telephone encounter Note * Telephone Encounter - Inessa Arnold RN - 07/25/2023 4:30 PM EDT Called Susana Bettencourt and discussed taper schedule from Dr. Monterroso of dropping by 1mg every month. Currently on 10mg Prednisone. Sonia Bettencourt expressed understanding of taper schedule. [facility] [place]-10-2024 Miscellaneous Notes* Telephone Encounter - Inessa Arnold RN - 07/25/2023 4:30 PM EDT Called Susana Bettencourt and discussed taper schedule from Dr. Monterroso of dropping by 1mg every month. Currently on 10mg Prednisone. Sonia Bettencourt expressed understanding of taper schedule. * Telephone Encounter - Mary Beth Trevino - 07/25/2023 12:39 PM EDT Milagros from [facility] calling they need clarification on the taper of Prednisone. Please call [phone] and ask for Susana Bettencourt documented in this encounterSelect Medical Specialty Hospital - [place]05-10-2024 Telephone encounter Note * Telephone Encounter - Mary Beth Trevino - 07/25/2023 12:39 PM EDT Milagros from [facility] calling they need clarification on the taper of Prednisone. Please call [phone] and ask for [facility] [place]04-30-2024 History of Present illness Narrative* Vikash Sylvester APRN.CHASSIS INSPECTOR - 07/15/2023 2:30 PM EDT Female Pelvic [...] [facility] [employer]PER[employer] has been prescribing estrogen cream. GFR normal. Urinary Incontinence: no Voiding Dysfunction: no Urinary Frequency: yes, takes lasix Urinary Urgency: yes, sometimes Prolapse Symptoms: no Defecatory Dysfunction: no Fecal Incontinence: no Abnormal Bleeding: no Pain: no Abnormal Vaginal Discharge: no I have confirmed and edited as necessary, the PFSH obtained by others. Vikash Sylvester APRN.CHASSIS INSPECTOR Filter Worker offered: Patient declines. OBJECTIVE: BP 122/84 Ht 5' 5" (1.65m) Wt 179 lb (81.2kg) BMI 29.79 [...] VV next year since they live in [place]. Medical Decision Making: Problems: Moderate: 2+ stable chronic illnesses Data: Unique test result(s) reviewed: 1 Risk: Moderate: Drug management Medical Decision Making Level: 4 - Moderate Vikash Sylvester APRN.CHASSIS INSPECTOR documented in this encounterSelect Medical Specialty Hospital - [place]04-19-2024 History of Present illness Narrative* Margy Sarabia - 07/04/2023 3:42 PM EDT [facility] received prescription(s) for Humira from Dr. Monterroso's office. Benefits investigation was conducted, indicating that a prior authorization is required by patient's insurance plan with [employer] medicare Encounter will be updated once prior authorization has been submitted by [facility]. Margy Sarabia CPhT, Inflammatory/Allergy [facility] [phone] * Margy Sarabia - 07/04/2023 3:42 PM EDT Images from the original note were not included. * Margy Sarabia - 07/04/2023 3:42 PM EDT [facility] received prescription(s) for Humira from [...] this time. Patient will be referred to [employer]. Note will be update once pt is contacted. Margy Sarabia CPhT, Inflammatory/Allergy [facility] [phone] documented in this encounterSelect Medical Specialty Hospital - [place]04-19-2024 History of Present illness Narrative* Thalia Monterroso [...] since last visit she has had 5 "flares" which lasted about 2 days each. She [...] mass on liver PMR (polymyalgia rheumatica) ([facility]) 2012 Pure hypercholesterolemia Snoring Squamous cell cancer [...] Take 1 tablet by mouth once daily. nwigcjq-ixqyfwxfk-rxexhls D3 500 mg-5 mcg (200 unit) per [...] in this encounterSelect Medical Specialty Hospital - [place]04-16-2024 Miscellaneous Notes* Telephone Encounter - Bayron Spears RN - 07/01/2023 4:00 PM EDT Singed order for compression stockings place in us postal mail addressed to: [facility] medical records [id number] [place] [address] documented in this encounterSelect Medical Specialty [facility] [place]04-15-2024 History of Present illness Narrative* Stella Preciado PA-C - 06/30/2023 4:00 PM EDTAssociated Order(s): Large Joint Arthro/Inj: R knee joint Post-Procedure Diagnose(s): Primary osteoarthritis of both knees Large Joint Arthro/Inj: R knee joint Informed Consent Consent Obtained: Verbal [place] Protocol A moment to CARE was completed. [...] in this encounterSelect Medical Specialty Hospital - [place]04-15-2024 Instructions* Patient Instructions* Stella Preciado PA-C - 06/30/2023 3:42 PM EDT Right knee injection today. No restrictions, follow up in 91 days if needed. documented in this encounterSelect Medical Specialty Hospital - [place]04-03-2024 History of Present illness Narrative* Stella Preciado PA-C - 06/18/2023 9:16 AM EDTAssociated Order(s): Large Joint Arthro/Inj: L knee joint Post-Procedure Diagnose(s): Primary osteoarthritis of both knees; Chronic pain of left knee Stella Preciado PA-C Department of Orthopaedics Orthopaedics [address] [facility] [address] Dept: [phone] Dept June 18, 2023 CHIEF COMPLAINT: Established [...] knee joint Informed Consent Consent Obtained: Verbal [place] Protocol A moment to CARE was completed. [...] Take 1 tablet by mouth once daily. swnrydr-pmgdzixci-stwxmch D3 500 mg-5 mcg (200 unit) per [...] [Lisinopril] This note was partially generated using [employer] recognition system, and there may be some [...] in this encounterSelect Medical Specialty Hospital - [place]04-03-2024 Instructions* Patient Instructions* Stella Preciado PA-C - 06/18/2023 8:54 AM EDT Left knee injection today, follow up in 1-2 weeks for right knee injection. documented in this encounterSelect Medical Specialty Hospital - [place]04-03-2024 History of Present illness Narrative* Page Ruiz RT([place]ma) - 06/18/2023 8:00 AM EDT Radiology Service [...] PATIENT PRESENTS WITH AN IMPLANTABLE OR ATTACHED PAYROLL PROCESSOR: No RADIOLOGY DEPARTMENT: General X-ray: Exam(s) Completed: Lower Extremity X- Ray(s): Knee, AP / Lat / Tunne / Merchant Bilateral and Wt. Bearing PERIPHERAL IV DATA: Not applicable SIGNED BY: RT Nithin(R) June 18, 2023 11:10 AM documented in this encounterSelect Medical Specialty Hospital - [place]04-01-2024 History of Present illness Narrative* Cecilio Ibarra, DO - 06/16/2023 1:57 PM EDT Images from the original note were not included. [facility] [facility] Department of Cardiovascular Medicine SECTION OF CLINICAL CARDIOLOGY OUTPATIENT VISIT DATE June 16, 2023 OUTPATIENT VISIT TYPE ESTABLISHED Patient Name: Christian Landrum : 1935 PRIMARY CARE PHYSICIAN: Galina Iraheta MD [facility] 09/05/22 CHIEF COMPLAINT: Patient presents with: Follow Up: TASHIA 12/13/22 CATHY HTN , PAF EKG 09/05/22 ECHO 02/04/23 Fall about 3 weeks ago Ms. Landrum is an 87 y/o female who comes for a follow up visit. She has a h/o of PAF on Warfarin, rheumatic MV regurgitation, HTN, HLD, STUART, breast Ca, PMR and OA. Patient came to the with her daughter. She has been doing [...] risk and aware of this off anticoagulation. XMU1CQ2-GSSs score 4 or approximately 7% annual stroke [...] SINUS RHYTHM Confirmed by OBDULIA BERMEO DO ([id number]) on 10/08/2022 3:19:16 PM LABS: Sodium (mmol/L) [...] 11.8 03/27/2021 11.1 No results found for: "PROBNP" No results found for: "HSTNT" Cholesterol, Total (mg/dL) Date Value 02/01/2020 102 [...] [Cephalexin], Naprosyn [Naproxen], Desmond Inhibitors, Adhesives [Other], [id number] [Diclofenac-Misoprostol], Blephamide [Sulfacetamide- Prednisolone], Ditropan [Oxybutynin], Flagyl[Metronidazole [...] Age of Onset other ( age 60 [place]) Mother hypertension and TB other (pancreatic cancer) [...] Take 1 tablet by mouth once daily. keeqwei-vqcfrwzbb-fuavcjm D3 500 mg-5 mcg (200 unit) per [...] in this encounterSelect Medical [facility]ty [facility]03-22-2024 History of Present illness Narrative* Hu Moreland [...] PATIENT PRESENTS WITH AN IMPLANTABLE OR ATTACHED PAYROLL PROCESSOR: No RADIOLOGY DEPARTMENT: Bone Density PERIPHERAL IV DATA: Not applicable SIGNED BY: RT Dwayne(R) June 06, 2023 2:13 PM documented in this encounterSelect Medical Specialty Hospital [facility]02-14-2024 Miscellaneous Notes* Telephone Encounter - Nicole Childs [...] Maximus said we can fax response to [phone] * Telephone Encounter - Nery Olsen - 04/28/2023 1:04 PM EST Maximus from [facility] called to advise that pt's pain has gotten worse while on the prednisone taper. Advised that dosage is now at 12.5 and pt is in a lot of pain. Callback: [phone] ERIK Ponce documented in this encounterAnna Ville [address]-09-2024 Miscellaneous Notes* Telephone Encounter - Nicole Childs [...] 04/24/2023 12:39 PM EST Maximus BRUNO from [facility] called. Patient was complaining of all [...] in this encounterSelect Medical Specialty Hospital [facility]11-28-2023 History of Present illness Narrative* Cassidy Arreola, SILVIO.CHASSIS INSPECTOR - 02/11/2023 10:05 AM EST Chief Complaint [...] for both; strong for ER, moderate for NE). HER-2 3+. Had been using Estrace cream [...] Wire Localization: Wire absent Lymph Node Sampling: [place] lymph node(s) Tumor size: Size of largest [...] tamoxifen therapy. S/p underwent hysteroscopy D&C at [facility] on 08/23/[address] Hebert. Path. Benign. Pt. resides at [place]. Pt. here today with her daughter. Last received iron sucrose 2022. No new concerns today. Appetite:"Good." Wt. up. Energy level:"It's been better." Denies fevers or recent illness. Resp:denies cough [...] flares Endo:denies hot flashes Neuro:+neuropathy to feet "sometimes better, sometimes worse." Skin:denies rashes/lesions Heme:denies bleeding The ROS is [...] 1.00 - 4.00 k/uL 1.57 1.06 1.54 Aurora% % 11.2 11.2 9.7 Abs Aurora <0.87 k/uL 0.68 0.59 0.68 Eosin% % [...] V10.3, ICD10: Z85.3 (primary diagnosis) pT1b pN0(sln) ER/NE positive, HER2 positive invasive ductal carcinoma the [...] in this encounterSelect Medical Specialty [facility]10-05-2023 Miscellaneous Notes* Telephone Encounter - Sheryl Mercado RN - 12/19/2022 2:42 PM EDT Faxed patient's last office visit note to [facility], [facility], per MM. documented in this encounterSelect Medical Specialty Hospital - [facility]10-03-2023 History of Present illness Narrative* Vnaia Horan RN - 12/17/2022 7:27 AM EDT Patient is here for IVAD port flush per [facility] protocol. IVAD is located in right upper chest. Site cleansed with Chloraprep IVAD accessed with a #20 gauge 3/4" non-coring Gripper needle Blood Return: Good Flushed with: 20 ml Normal Saline and 5 ml Heparin Lock Flush Non-coring needle removed. Paper tape applied to puncture site. Port site negative for redness, edema or tenderness. Patient tolerated procedure well. documented in this encounterSelect Medical Specialty Hospital - [facility]09-29-2023 Instructions* Patient Instructions* Juliet Gaffney APRN.CNP - 12/13/2022 2:50 PM EDT PLAN AND RECOMMENDATIONS: No change in medications Follow up Dr Ibarra in 6 months. CONTACT INFORMATION: Juliet Gaffney APRN.CNP Cardiology Nurse Practitioner Section of [facility] Cardiology [facility] Dept of Cardiovascular Medicine [facility] [place] [address] [place] [address] Office Office documented in this encounterSelect Medical Specialty Hospital - [facility]09-29-2023 History of Present illness Narrative* Juliet Gaffney APRN.CNP - 12/13/2022 2:45 PM EDT Images from the original note were not included. [facility] [place] [facility] Department of Cardiovascular Medicine SECTION OF CLINICAL CARDIOLOGY OUTPATIENT VISIT DATE December 13, 2022 OUTPATIENT VISIT TYPE ESTABLISHED PRIMARY CARE PHYSICIAN: Galina Iraheta [address] [place] [id number] REFERRING PHYSICIAN: Jerrica Beltran [address] [facility] [address] CHIEF COMPLAINT: Follow Up ([place] denies cardiac concerns/Daughter, Eloisa, concerned about Lasix [...] if standing for long time, like at [place] but resolves quickly Has sleep apnea with new mask and now sleeps better. She overall feels better than she has in a long time. Does water therapy at her assisted living facility. [facility] She denies shortness of breath, chest [...] Age of Onset other ( age 60 [place]) Mother hypertension and TB other (pancreatic cancer) [...] Take 1 tablet by mouth once daily. nhifdew-vmedlrpbl-nauhvzw D3 500 mg-5 mcg (200 unit) per [...] 130/60 Pulse 68 Ht 167.6 cm (5' 6") Wt 79.4 kg (175 lb) SpO2 97% [...] SINUS RHYTHM Confirmed by OBDULIA BERMEO DO ([id number]) on 10/08/2022 3:19:16 PM There were no [...] Cardiology Nurse Practitioner Section of [facility] Card[facility] Dept of Cardiovascular Medicine [facility] [place] [address] [place] [address] Office Office documented in this encounterSelect Medical Specialty Hospital - [facility]09-12-2023 Miscellaneous Notes* Telephone Encounter - Sheryl Mercado [...] we assist patient with scheduling, contact is Elosia Moser. * Telephone Encounter - Stella Preciado PA-C - 11/26/2022 9:20 AM EDT Order entered for US guided injection right CMC joint, can we assist patient with scheduling, contact is Eloisa Moser. documented in this encounterSelect Medical Specialty Hospital - [facility]09-11-2023 Instructions* Patient Instructions* Stella Preciado PA-C - [...] in this encounterSelect Medical Specialty Hospital - [facility]09-11-2023 History of Present illness Narrative* Page Ruiz, RT(R) - 11/25/2022 2:10 PM EDT Radiology [...] DATA: Not applicable SIGNED BY: RT Nithin(Palma) November 25, 2022 2:30 PM documented in this encounterSelect Medical Specialty Hospital - [facility]09-11-2023 History of Present illness Narrative* Stella Preciado PA-C - 11/25/2022 2:05 PM EDTAssociated Order(s): Large Joint Arthro/Inj: bilateral knee joints Post-Procedure Diagnose(s): Primary osteoarthritis of both knees Large Joint Arthro/Inj: bilateral knee joints Informed Consent Consent Obtained: Verbal [place] Protocol A moment to CARE was completed. [...] in this encounterSelect Medical Specialty Hospital - [facility]08-31-2023 Miscellaneous Notes* Telephone Encounter - Juliet Coombs - 11/14/2022 5:44 PM EDT Left VM on patient's home and mobile lines cancelling the patient's 12/11/22 cardiology appointment.Instructed the patient to call the office to reschedule. My Chart message sent. documented in this encounterSelect Medical Specialty Hospital - [facility]07-11-2023 History of Present illness Narrative* Andria Joyner RN - 09/24/2022 2:35 PM EDT Patient is here for IVAD port flush per [facility] protocol. IVAD is located in right upper chest. Site cleansed with Chloraprep IVAD accessed with a #20 gauge 3/4" non-coring Gripper needle Blood Return: Good Flushed with: 20 ml Normal Saline and 5 ml Heparin Lock Flush Non-coring needle removed. Paper tape applied to puncture site. Port site negative for redness, edema or tenderness. Patient tolerated procedure well. Andria Joyner RN documented in this encounterSelect Medical Specialty Hospital - [facility]07-07-2023 Miscellaneous Notes* Telephone Encounter - Ana Cristina Melo RN - 09/20/2022 8:44 AM EDT Reviewed labs with Dr. Ibarra. Recommended pt to hold Eliquis. Would like pt to see Dr. Shields to discuss Watchmen Device. Reviewed recommendations to KASANDRA Amin an Nurse Milagros at [place]. Eloisa stated she will review Watchman recommendations to pt. Will contact us if she decided to pursue. * Telephone Encounter - Ana Cristina Melo RN - 09/20/2022 8:17 AM EDT Jie from [facility] ([phone]) in reg to Ms Tristin Landrum. CBC [...] risk and aware of this off anticoagulation. [id number]-VKEk score 4 or approximately 7% annual stroke risk and has-bled score is 2 or 4% bleeding risk - Currently on metoprolol - patient and daughter wish to trial DOAC now Iron deficiency anemia Doing well with iron infusions with stable Hgb documented in this encounterSelect Medical Specialty Hospital - [facility]06-22-2023 History of Present illness Narrative* Cecilio Ibarra, DO - 09/05/2022 9:12 AM EDT Images from the original note were not included. [facility] [place] [facility] Department of Cardiovascular Medicine SECTION OF CLINICAL CARDIOLOGY OUTPATIENT VISIT DATE April 09, 2022 OUTPATIENT VISIT TYPE ESTABLISHED Patient Name: Christian Landrum : 1935 PRIMARY CARE PHYSICIAN: Galina Iraheta MD TASHIA 09/05/21 CHIEF COMPLAINT: No chief [...] risk and aware of this off anticoagulation. [id number] score 4 or approximately 7% annual stroke [...] 124/64 Pulse 69 Ht 167.6 cm (5' 6") Wt 78 kg (172 lb) BMI 27.76 [...] [Cephalexin], Naprosyn [Naproxen], Desmond Inhibitors, Adhesives [Other], [id number] [Diclofenac-Misoprostol], Blephamide [Sulfacetamide- Prednisolone], Ditropan [Oxybutynin], Flagyl[Metronidazole [...] Age of Onset other ( age 60 [place]) Mother hypertension and TB other (pancreatic cancer) [...] Take 1 tablet by mouth once daily. awbjptb-sbbdbhljc-jabkzik D3 500 mg-5 mcg (200 unit) per [...] in this encounterSelect Medical Specialty Hospital - [facility]06-13-2023 History of Present illness Narrative* Cassidy Arreola APRN.CHASSIS INSPECTOR - 08/27/2022 11:54 AM EDT Chief Complaint [...] for both; strong for ER, moderate for NE). HER-2 3+. Had been using Estrace cream [...] Wire Localization: Wire absent Lymph Node Sampling: [place] lymph node(s) Tumor size: Size of largest [...] tamoxifen therapy. S/p underwent hysteroscopy D&C at [facility] on 08/23/[address] Hebert. Path. Benign. Pt. now resides at [place]. Pt. here today with her daughter. Pt. had covid for the second time in 9 months. Participating in PT/OT now. Appetite:"Good." Wt. stable. Energy level:"75% maybe. I'm working at it." Denies fevers since covid. Symptoms lasted about [...] methotrexate Endo:denies hot flashes Neuro:+neuropathy to feet "currently it's better" Skin:denies rashes/lesions Heme:denies bleeding The ROS is [...] Lymph 1.00 - 4.00 k/uL 1.35 1.57 Aurora% % 11.0 11.2 Abs [place] <0.87 k/uL 0.54 0.68 Eosin% % 1.6 [...] V10.3, ICD10: Z85.3 (primary diagnosis) pT1b pN0(sln) ER/NE positive, HER2 positive invasive ductal carcinoma the [...] in this encounterSelect Medical Specialty [facility]03-28-2023 Miscellaneous Notes* Telephone Encounter - Sadie Lin [...] in this encounterSelect Medical Specialty Hospital - [facility]03-22-2023 History of Present illness Narrative* Page Ruiz, (R) - 06/05/2022 11:40 AM EDT Radiology Service [...] in this encounterSelect Medical Specialty [facility]03-22-2023 History of Present illness Narrative* Cassidy Arreola APRN.CHASSIS INSPECTOR - 06/05/2022 10:51 AM EDT Chief Complaint [...] for both; strong for ER, moderate for NE). HER-2 3+. Had been using Estrace cream [...] Wire Localization: Wire absent Lymph Node Sampling: [place] lymph node(s) Tumor size: Size of largest [...] tamoxifen therapy. S/p underwent hysteroscopy D&C at [facility] on 08/23/[address] Hebert. Path. Benign. Pt. now resides at [place]. Pt. here today with her daughter. Pt. started with R rib pain over a week ago. "It went away after a couple days and now it's back. It doesn't hurt right now." Denies injury. Appetite:"Good." Energy level:"Bad." Denies fevers or recent illness. 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 Past medical [...] V10.3, ICD10: Z85.3 (primary diagnosis) pT1b pN0(sln) ER/NE positive, HER2 positive invasive ductal carcinoma the [...] in this encounterSelect Medical Specialty Hospital [facility]03-16-2023 Miscellaneous Notes* Telephone Encounter - Meredith Alonzo - 05/30/2022 3:07 PM EDT Spoke with Jie at [facility] and she stated that appointments need made with the patient's family as they are the ones that transport the patient. Spoke with patient's daughter, advising below, and scheduled May follow up as directed. Meredith Alonzo * Telephone Encounter - Lisa Morales LPN - 05/30/2022 1:42 PM EDT Left detailed message for Herminia with information below. I attempted to contact [facility], , they were unable to hear on their line. Unable to speak to anyone. I faxed this information to [phone]. Will attempt to contact again later. PSS- please contact [facility] to schedule as directed below. Lisa [...] - 05/30/2022 12:34 PM EDT Herminia from [place] called stating patient is having right side pain, rib area. She is asking if imaging orders could be sent or if patient needs to be seen . She states concern due to hx breast cancer. Please call Herminia at [phone] documented in this encounterSelect Medical Specialty Hospital - [facility]01-25-2023 Miscellaneous Notes* Telephone Encounter - Starla Son RN - 04/10/2022 8:15 AM EST Daughter called stating that patient mentioned yesterday that she had "intense right sided chest pain that went up into her neck" for 15 minutes after Mondays iron infusion. [...] Dr. Bonilla in case this is a "contraindication" to receive the iron. Patient is scheduled for dose #2 of iron today. Starla Doup, RN documented in this encounterSelect Medical Specialty Hospital - [facility]on01-24-2023 Instructions* Patient Instructions* Taty Perez APRN.CNP - 04/09/2022 3:08 PM EST We reviewed [...] day - please fax BP readings to [phone] I would like to know if your [...] in this encounterSelect Medical Specialty Hospital - [facility]01-24-2023 History of Present illness Narrative* Taty Perez APRN.INGE - 04/09/2022 2:44 PM EST Images from the original note were not included. [facility] [place] [facility] Department of Cardiovascular Medicine [...] which included preparing to see the patient, roza-nm-omik patient care, completing clinical documentation, performing a medically appropriate examination, counseling and educating the patient/family/caregiver, ordering medications, tests, or p rocedures, and communicating results to the patient/family/caregiver. Thank you very much for allowing me to assist in the care of Christian Landrum. Please do not hesitate to contact me if you have questions or concerns. Taty Perez APRN.[facility] Cardiology Nurse Practitioner Section of Regional Cardiology [facility] Dept of Cardiovascular Medicine [facility] Heart and Vascular [place] [address] Office Office April 09, 2022 2:44 PM This note was partially generated using [employer] voice recognition system and may contain errors [...] Adult) Pulse 75 Ht 167.6 cm (5' 6") Wt 76.7 kg (169 lb) SpO2 98% [...] [Cephalexin], Naprosyn [Naproxen], Desmond Inhibitors, Adhesives [Other], [id number] [Diclofenac-Misoprostol], Blephamide [Sulfacetamide- Prednisolone], Ditropan [Oxybutynin], Flagyl[Metronidazole [...] Age of Onset other ( age 60 [place]) Mother hypertension and TB other (pancreatic cancer) [...] and ROS obtained by others. Taty Perez, MOTOR ROOM CONTROLLER.CHASSIS INSPECTOR CURRENT MEDICATIONS: Current Outpatient Medications Medication Sig [...] Take 1 tablet by mouth once daily. dlqnmmr-ieqfhiqas-wjijdod D3 500 mg-5 mcg (200 unit) per [...] in this encounterSelect Medical Specialty Hospital [facility]01-23-2023 History of Present illness Narrative* Nata Morrison RN - 04/08/2022 11:07 AM EST documented in this encounterSelect Medical Specialty Hospital - [facility]01-09-2023 Miscellaneous Notes* Telephone Encounter - ERIK Wood - 03/25/2022 11:35 AM EST Spoke with patients daughter and scheduled * Telephone Encounter - ERIK Wood - 03/25/2022 10:49 AM EST Called [...] in this encounterSelect Medical Specialty Hospital - [facility]01-06-2023 Miscellaneous Notes* Telephone Encounter - Dayami Pinto [...] in this encounterSelect Medical Specialty Hospital - [facility]12-27-2022 Miscellaneous Notes* Telephone Encounter - Dayami Pinto [...] in for a lab port draw and waste picker hemoccult cards at the desk (labeled and at nurses station for waste picker when she comes in).PSS please reach [...] 03/12/2022 9:57 AM EST Left message on [employer] phone to call me back to review [...] in this encounterSelect Medical Specialty Hospital - [facility]on12-21-2022 History of Present illness Narrative* Cassidy Arreola [...] for both; strong for ER, moderate for NE). HER-2 3+. Had been using Estrace cream [...] Wire Localization: Wire absent Lymph Node Sampling: [place] lymph node(s) Tumor size: Size of largest [...] tamoxifen therapy. S/p underwent hysteroscopy D&C at [facility] on 08/23/[address] Hebert. Path. Benign. Pt. now resides at [place]. Labs have been monitored there. She received two units of blood today. Has been receiving blood transfusions since September. Pt. here today with her daughter. Appetite:"Good." Energy level:"Bad." Denies fevers or recent illness. 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 Past medical [...] 174.3, V86.0, ICD10: C50.311, Z17.0 pT1b pN0(sln) ER/NE positive, HER2 positive invasive ductal carcinoma the [...] as necessary for today's visit. Cassidy Arreola APRN.CHASSIS INSPECTOR documented in this encounterSelect Medical Specialty Hospital - [facility]on11-22-2022 History of Present illness Narrative* Vania Horan RN - 02/05/2022 7:32 AM EST Patient is here for IVAD port flush per [facility] protocol. IVAD is located in right upper chest. Site cleansed with Chloraprep IVAD accessed with a #20 gauge 3/4" non-coring Gripper needle Blood Return: Good Flushed with: 20 ml Normal Saline and 5 ml Heparin Lock Flush Non-coring needle removed. Paper tape applied to puncture site. Port site negative for redness, edema or tenderness. Patient tolerated procedure well. documented in this encounterSelect Medical Specialty Hospital - [facility]11-07-2022 History of Present illness Narrative* Stella Preciado PA-C - 01/21/2022 2:58 PM ESTAssociated Order(s): Large Joint Arthro/Inj: R knee joint Post-Procedure Diagnose(s): Primary osteoarthritis of both knees; Chronic pain of right knee Stella Preciado PA-C Department of Orthopaedics Orthopaedics [address] [place] [address] Dept: [phone] Dept January 21, 2022 CHIEF COMPLAINT: Established [...] knee joint Informed Consent Consent Obtained: Verbal [place] Protocol A moment to CARE was completed. [...] knee osteoarthritis with interval progression as described. Personnel Research Psychologist: PSCB Transcribe Date/Time: Jul 09 2021 7:03P [...] Take 1 tablet by mouth once daily. rrfjdos-wnktplnmd-ardeotg D3 500 mg-5 mcg (200 unit) per [...] anxiety) This note was partially generated using [employer] voice recognition system, and there may be [...] in this encounterSelect Medical Specialty Hospital - [facility]on10-19-2022 NoteHNO ID: [id number] Author: Basilia Hernández MD Service: ? 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 TRUCK DRIVER HISTORY: Last Pap: Date:04/18/20 NIL; Last Mammogram: [...] Hernández MD OBJECTIVE: BP 126/62 Ht 5' 6" (1.68m) Wt 165 lb (74.8kg) BMI 26.64 [...] Level: 4 - Moderate Basilia Hernández, [facility]10-19-2022 Instructions* Patient Instructions* Basilia Hernández MD - 01/02/2022 2:08 PM EDT Follow up with Vikash Sylvester NP in 6 months or sooner as needed documented in this encounterSelect Medical Specialty Hospital - [facility]10-19-2022 History of Present illness Narrative* Basilia Hernández [...] stool Pain: no Abnormal Vaginal Discharge: no 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 Asking if Coumadin can be held/stopped temporarily. Coumadin has been ordered by PCP, not cardiology office. Spoke with WATER TREATMENT PLANT OPERATOR, explained Dr. Ibarra was not managing patient's Coumadin. WATER TREATMENT PLANT OPERATOR stated patient is no longer seeing Dr. Iraheta and has new PCP; requesting orders from Dr. Ibarra. Advised WATER TREATMENT PLANT OPERATOR to follow up with new PCP/physician managing Coumadin. Per Dr. Ibarra's notes, anemia has been chronic issue. documented in this encounterSelect Medical Specialty Hospital - [facility]on08-30-2022 History of Present illness Narrative* Jerrica Bhat RN - 11/13/2021 9:57 AM EDT Patient is here for IVAD port flush per [facility] protocol. IVAD is located in right upper chest. Site cleansed with Chloraprep IVAD accessed with a #20 gauge 3/4" non-coring Gripper needle Blood Return: Good Flushed with: 20 ml Normal Saline Non-coring needle removed. Paper tape applied to puncture site. Port site negative for redness, edema or tenderness. Patient tolerated procedure well. documented in this encounterSelect Medical Specialty Hospital - [facility]on08-22-2022 Miscellaneous Notes* Telephone Encounter - Galina Iraheta MD - 11/05/2021 5:17 PM EDT noted * Telephone Encounter - Maria A Camacho ([employer]) - 11/05/2021 9:35 AM EDT PATIENT CALL [...] re-referred, if deemed appropriate. Maria A Camacho; [facility] ([employer] [facility]) [facility] Antico[facility] documented in this encounterSelect Medical Specialty Hospital - Canton08-19-2022 Miscellaneous Notes* Telephone Encounter - An Ta APRN.CNP - 11/02/2021 2:49 PM EDT Noted. An Ta APRN.CNP * Telephone Encounter - Nata Lemon LPN - 11/02/2021 1:12 PM EDT Patient daughter Gia returned call and said her mother is at [facility] and Dr Alejo Salcido is taking [...] EDT Received call from Maximus MERCADO with [facility]. Patient was admitted to facility today. Maximus asking for clarification on when patient should resume Coumadin and dosage as well as when next INR needs to be drawn. Maximus requests orders be faxed to [phone] or called to [phone]. Maximus requested updated medication list be faxed. Faxed per request. Please review and advise, Una Garcia RN * Telephone Encounter - Nury Andres RP - 10/25/2021 12:54 PM EDT Spoke to patient. She is staying with her daughter. She is currently off warfarin and waiting for call back from Dr. Iraheta with instructions on when toresume. * Telephone Encounter - Nury Andres RP - 10/23/2021 4:30 PM EDT Called patient and left VM to call PAC at [phone]. Is she is Assisted Living facility? documented in this encounterSelect Medical Specialty Hospital - [facility]08-04-2022 Miscellaneous Notes* Telephone Encounter - Yoly Clayton Ma - 10/18/2021 3:47 PM EDT Patient currently being seen in [facility] ER. * Telephone Encounter - An Ta APRN.CNP - 10/18/2021 3:39 PM EDT Please get update from daughter on how patient is feeling, and if they heard back from [facility]. Thank you An Ta APRN.CNP * Telephone Encounter - Nata Lemon LPN - 10/18/2021 9:00 AM EDT Patient daughter Eloisa calling mother woke up with fever 100.5 this morning. She was having body aches yesterday. She is scheduled for blood transfusion today at [facility] her hemoglobin is 6.5 and daughter has called transfusion center at [facility] and left message. Eloisa did home COVID test and mother was positive. documented in this encounterSelect Medical Specialty [facility]08-03-2022 Miscellaneous Notes* Telephone Encounter - Jerrica Rothman RPh - 10/17/2021 3:58 PM EDT Christian Landrum [...] Hgb, she is getting a transfusion at [facility]. She said the patient will be [...] 2.1 now? Blood tranfusion orders faxed to [facility] Please review and advise. Nury Guerin LPN * Telephone Encounter - Jerrica Rothman [facility] - 10/17/2021 9:12 AM EDT INR yesterday (10/16) was 2.1 via Biotel. Electronically signed by Jerrica Rothman [facility] at 10/17/2021 9:13 AM EDT * Telephone Encounter - Galina Iraheta MD - 10/16/2021 6:32 PM EDT We will have to transfuse 2 units of RBcs to patient Please get the forms for [facility] and inform patient of the same * Telephone Encounter - Tesha Arias [facility] - 10/16/2021 6:01 PM EDT Called and stp- per Dr. Iraheta pt to hold off on warfarin. Pt's Hgb was 6.5 today, will reach out to Dr. Iraheta for clarification on resuming anticoag Tesha Arias PharmD documented in this encounterSelect Medical Specialty Hospital [facility] [place]08-03-2022 Miscellaneous Notes* Telephone Encounter - Ramila Castro LPN - 10/17/2021 2:00 PM EDT Soraya with [facility] Marge called and states pt is coming in for a cross and type. Identified pt withname and date of . Requested a copy of last H & H, faxed CBC to [phone]. Ramila Castro LPN documented in this encounterSelect Medical Specialty Hospital [facility] [place]08-01-2022 Miscellaneous Notes* Telephone Encounter - Nury Guerin [...] followin. Friday10-13-21 was trimming toe nails and fracisco pt and she started to bleed. Took [...] this medication. Advice. 4. Moving pt to [place] [facility] 10-22-21. Please advise daughter on cell phone or send a ODIN message Gia Ford ([facility])on teams. documented in this encounterSelect Medical Specialty Hospital - [place]08-01-2022 Miscellaneous Notes* Telephone Encounter - Vito Jay [facility] - 10/15/2021 11:47 AM EDT [facility] Clinic Anticoagulation Episode Summary Anticoagulation Care Providers Provider Role Specialty Phone number Galina Iraheta MD [facility] Internal Medicine [phone] Christian Landrum is a 86 year old [...] Pharmacy Anticoagulation Clinic Pharmacy Anticoagulation Clinic Pager: [phone]. documented in this encounterSelect Medical Specialty Hospital - [place]07-28-2022 History of Present illness Narrative* Jeancarlos Hooker [...] removed with a cold snare. D&C at [place] a month or two ago for uterine [...] Age of Onset other ( age 60 [place]) Mother hypertension and TB other (pancreatic cancer) [...] in this encounterSelect Medical Specialty Hospital - [facility]07-13-2022 NoteHNO ID: [id number] Author: Basilia Hernández MD Service: ? Author [...] UTIs, used to see Dr. Burris at [facility]. Prior colovesical fistula, s/p sigmoid [...] >=60 mL/min/1.73m? 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 09-26-2021 Instructions* Patient Instructions* Basilia Hernández MD - 09/26/2021 2:57 PM EDT Follow up with Dr. Hernández in 3 months Schedule appointment with infectious disease Start Hiprex Continue vaginal estrogen Consider trying D-mannose Your doctor has placed a standing order for urine culture. When you have symptoms of a urine infection, go to a [facility] lab facility and submit a urine specimen [...] in this encounterSelect Medical Specialty Hospital - [place]07-13-2022 History of Present illness Narrative* Basilia Hernández [...] UTIs, used to see Dr. Burris at [facility]. 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 bznpunz-gtcnavqer-scyqlzm D3 500 mg-5 mcg (200 unit) per [...] ROS obtained by others. Basilia Hernández MD Filter Worker offered: Patient accepts, visit chaperoned by Jane Kowalski LPN. OBJECTIVE: Ht 5' 6" (1.68m) Wt 170 lb (77.1kg) BMI 27.45 [...] Post Wall - Normal support Cervix / [place] - Normal support POP-Q: Prolapse Noted: No [...] mail. Basilia Hernández MD documented in this encounterShelia [place] [address]-06-2022 Miscellaneous Notes* Telephone Encounter - Jerrica Rothman RPh - 09/19/2021 11:03 AM EDT [employer] message sent for therapeutic INR. Electronically signed by Jerrica Rothman [facility] at 09/19/2021 11:07 AM EDT documented in this encounterSelect Medical Specialty Hospital - [place]07-05-2022 History of Present illness Narrative* Cassidy Arreola APRN.CHASSIS INSPECTOR - 09/18/2021 9:29 AM EDT Chief Complaint [...] for both; strong for ER, moderate for NE). HER-2 3+. Had been using Estrace cream [...] Wire Localization: Wire absent Lymph Node Sampling: [place] lymph node(s) Tumor size: Size of largest [...] Not Applicable Completed 5 years tamoxifen therapy. "I haven't been good. I was in the hospital for my gallbladder." See by Dr. Turk at that time-June 2021. No surgery done. Referred to Dr. Das. She was then admitted to [facility] for weakness end of June. Admitted to [place] for UTI end of July. During that time her . S/p underwent hysteroscopy D&C at [facility] on 08/23/[address] Hebert. Path. Benign. 09/11/21-vaginal bleeding was seen by Dr. Hebert. Pt. participating in PT. Appetite:"I've been eating. My sister has been here from [place]." Energy level:"I sleep a lot." Denies fevers. Resp:denies cough or sob-followed by [...] Skin:denies rashes/lesions Heme:denies bleeding since visit with LOCAL COMBINATION TRUCK DRIVER The ROS is otherwise negative. Past medical [...] 174.3, V86.0, ICD10: C50.311, Z17.0 pT1b pN0(sln) ER/NE positive, HER2 positive invasive ductal carcinoma the [...] in this encounterSelect Medical Specialty Hospital - [place]07-05-2022 Nurse Note* Sadie Lin LPN - 09/18/2021 9:17 AM EDT Est. Pt. 6 month f/u Sadie Lin LPN documented in this encounterSelect Medical Specialty Hospital - [place]06-29-2022 Miscellaneous Notes* Telephone Encounter - Jerrica Rothman RPh - 09/12/2021 11:32 AM EDT Stp - reviewed Dr. King's note from yesterday's OV. Pt reports no further issues - bleeding concerns. She resumed yesterday taking 1mg - 09/11. Advised her to continue her current dose and retest next week. Jerrica Rothman PharmD * Telephone Encounter - Maria A Camacho (Joint Cutter) - 09/12/2021 9:03 AM EDT PATIENT CALL Patient called call center regarding procedure. Patient called and left message after hours that stated she had her procedure on 09/11 and MD had advised her to resume her warfarin. Patient wanted to call and let [facility] know. Patient can be reached at [phone]. Maria A Camacho (Joint Cutter) * Telephone Encounter - Nury Andres [facility] - 09/11/2021 8:49 AM EDT Spoke to patient. She has not taken warfarin for past 5 days due to vaginal bleeding. She has a n appointment today with sewer pipe layer for cauterization. Advised she call PAC back after appt to let us know when she can resume warfarin. PT INR (no units) Date Value 06/06/2021 3.1 (biotel) 05/23/2021 2.5 (biotel) 03/15/2021 1.9 INR Home CoaguChek (no units) Date Value 09/10/2021 1.6 09/04/2021 2.0 08/22/2021 2.7 Nury Andres, Pharmacist * Telephone Encounter - Kevin Torres (Joint Cutter) - 09/11/2021 8:42 AM EDT PATIENT CALL Judith called call center regarding results and left message after hours 09/10/2021 at 7:30pm. Patient also called and left message (transferred from PSS line) stating that she is having some bleedingissues and hasn't taken warfarin for at least five days. Please see yesterdays WASHER HAND encounter as well. Received call from [facility] INR for patient. Patient tested on 09/10/2021 with out of range INR result of 1.6. PT INR (no units) Date Value 06/06/2021 3.1 (biotel) 05/23/2021 2.5 (biotel) 03/15/2021 1.9 INR Home CoaguChek (no units) Date Value 09/10/2021 1.6 09/04/2021 2.0 08/22/2021 2.7 Patient can be reached at [phone]. Kevin Torres, Pharmacy Anticoagulation Clinic documented in this encounterSelect Medical Specialty Hospital - [place]06-28-2022 History of Present illness Narrative* Jayde Hebert MD - 09/11/2021 10:39 AM EDT Christian Landrum is a 86 year old female who presents for problem visit for c/o vaginal bleeding. Bleeding was bright red for a few days, some small "dime- sized" clots. Slowed to spotting yesterday, none today. Stopped coumadin again for 2 days. No UTIS symptoms. OB History T3 L3 SAB0 IAB0 Ectopic0 Multiple0 Live Births0 Comment: Menarche 11 fftp 26. natural menopause 50+ Menarche: 12; Age at 1st : 26; LIBERTY/BSO at age 51 due to ovarian tumor Manager Of Customer Billing History LMP: Postmenopausal Age at Menarche: Age at First : Age at Menopause: Manager Of Customer Billing History Comments: Sexual Activity: Not Currently; Male [...] Age of Onset other ( age 60 [place]) Mother hypertension and TB other (pancreatic cancer) [...] Take 1 tablet by mouth once daily. 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 Vagina [...] in this encounterSelect Medical Specialty Hospital [facility] [place]06-27-2022 Miscellaneous Notes* Telephone Encounter - Juliet Cuevas [...] willing to try to work her in [employer]. Jayde Hebert MD * Telephone Encounter - [...] daughter. She has an appointment with Uro/Manager Of Customer Billing, Dr. Hernández on 09/26. Is this ok [...] in this encounterSelect Medical Specialty Hospital - [place]06-24-2022 Miscellaneous Notes* Telephone Encounter - An Ta APRN.CNP - 09/07/2021 8:02 AM EDT Noted. Please let us know if they need anything else from us. Thank you An Ta APRN.CNP * Telephone Encounter - Maria A Khanna RN - 09/06/2021 12:55 PM EDT Sheryl with [facility] called and reports Pt is thinking of coming and living in their Assisted Living facilities. Sent Face sheet and last OV notes to fax # [phone]. documented in this encounterSelect Medical Specialty Hospital - [place]06-22-2022 History of Present illness Narrative* Cecilio Ibarra DO - 09/05/2021 12:58 PM EDT Images from the original note were not included. [facility] [...] ordered and seen for telephone visit by MOTOR ROOM CONTROLLER 04/19/21. MPI showed no evidence of ischemia or infarction. She was hospitalized in June at [facility] and in July 2021 in [place] both for UTI and fever. She continues [...] 104/54 Pulse 73 Ht 167.6 cm (5' 6") Wt 77.7 kg (171 lb 3.2 oz) [...] in this encounterSelect Medical Specialty Hospital - [place]06-22-2022 Miscellaneous Notes* Telephone Encounter - Jerrica Rothman RPh - 09/05/2021 9:09 AM EDT [employer]BL [employer] message sent for INR therapeutic range. documented in this encounterSelect Medical Specialty Hospital - [place]06-17-2022 Miscellaneous Notes* Telephone Encounter - Kamila Bentley LPN - 08/31/2021 7:49 AM EDT Please see pt's mychart message and pended order below. Please advise. Kamila Bentley LPN documented in this encounterSelect Medical Specialty Hospital - [place]06-16-2022 History of Present illness Narrative* Jayde Hebert [...] 12; Age at 1st : 26; Manager Of Customer Billing History LMP: Postmenopausal Age at Menarche: Age at First : Age at Menopause: Manager Of Customer Billing History Comments: Sexual Activity: Not Currently; Male Contraception: No contraception data on record PAST MEDICAL HISTORY Diagnosis Date Abdominal pain, left lower quadrant long standing Arrhythmia Arthritis Asthma Atrial fibrillation ([facility]) 2009 Atrophic vaginitis Benign neoplasm of colon [...] breast of female, estrogen receptor positive ([facility]) 06/03/2017 Mitral valve disorders(424.0) and irregular heartbeat on occasion stress related Mixed stress and urge urinary incontinence Osteoarthrosis, unspecified whether generalized or localized, other specified sites 07/22 vit D 41 Other diseases of pharynx, not elsewhere classified(478.29) Other extrapyramidal disease and abnormal movement disorder PMH - PAST MEDICAL HISTORY OF benign mass on liver PMR (polymyalgia rheumatica) ([facility]) 2012 Pure hypercholesterolemia Snoring Squamous cell cancer [...] Age of Onset other ( age 60 [place]) Mother hypertension and TB other (pancreatic cancer) [...] Take 1 tablet by mouth once daily. jlszxzp-aofwgwobd-fncrxqn D3 500 mg-5 mcg (200 unit) per [...] in this encounterSelect Medical Specialty Hospital - [place]06-14-2022 History of Present illness Narrative* Jayde Hebert [...] Menarche: 12; Age at 1st : Manager Of Customer Billing History LMP: Postmenopausal Age at Menarche: Age at First : Age at Menopause: Manager Of Customer Billing History Comments: Sexual Activity: Not Currently; Male [...] Age of Onset other ( age 60 [place]) Mother hypertension and TB other (pancreatic cancer) [...] Take 1 tablet by mouth once daily. qysjxet-ypxcemxmq-seadhon D3 500 mg-5 mcg (200 unit) per [...] external genitalia normal, normal Bartholin's glands, urethra, [place]'s glands, no vulvar lesions, good vaginal support, [...] in this encounterSelect Medical Specialty Hospital - [place]06-12-2022 History of Present illness Narrative* Jayde Hebert MD - 08/26/2021 3:21 PM EDT Patient underwent hysteroscopy D&C at [facility] on 08/23/2021 without complications. She was discharged home with routine instructions and follow-up. Pathology is pending. No discrete polyp visualized. Jayde Hebert MD documented in this encounterSelect Medical Specialty Hospital - [place]06-08-2022 Miscellaneous Notes* Telephone Encounter - Jerrica Rothman, [facility] - 08/22/2021 10:10 AM EDT [facility] Ambulatory Pharmacy Anticoagulation Clinic Anticoagulation Episode Summary Anticoagulation Care Providers Provider Role Specialty Phone number Galina Iraheta MD [facility] Internal Medicine [phone] Christian Landrum is a 86 year old [...] * Unknown Zestril [Lisinopril] Indication for Warfarin: termite 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 documented in this encounterSelect Medical Specialty Hospital - [place]06-03-2022 Miscellaneous Notes* Telephone Encounter - Corinna Arenas RPh - 08/17/2021 10:26 AM EDT [facility] Ambulatory [facility] Anticoagulation Clinic Anticoagulation Episode Summary Anticoagulation Care Providers Provider Role Specialty Phone number Galina Iraheta MD [facility] Internal Medicine [phone] Christian Landrum is a 86 year old [...] * Unknown Zestril [Lisinopril] Indication for Warfarin: termite helper (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 anticoagulants Paroxysmal atrial fibrillation (hcc) Anticoagulation Episode Summary Current INR goal: 2.0-3.0 Assessment: INR result of 2.6 is therapeutic Plan: Called and spoke to patient/caregiver Advised patient to continue current weekly dose Next home INR check scheduled on 08/22/2021 Patient is having vaginal bleeding, is scheduled for d&c with polypectomy on 08/23; was advised by LOCAL COMBINATION TRUCK DRIVER that warfarin isn't usually held for the procedure Advised to test INR the day prior to ensure it isn't elevated Patient verbalizes understanding of the plan. Patient denies need for refills. Corinna Arenas RPh Clinical Pharmacist, Pharmacy Anticoagulation Clinic Pharmacy Anticoagulation Clinic Pager: [phone] . documented in this encounterSelect Medical Specialty Hospital - [place]06-02-2022 Miscellaneous Notes* Telephone Encounter - Madyson Agosto [...] to call office. Patient is scheduled at [facility] for surgery on 08/29/2021 @ 7:30 am. [facility] will call with arrival time.Phone PAT is 08/23/2021 8:00 am. Patient needs 2 week post-op documented in this encounterSelect Medical Specialty Hospital - [place]06-01-2022 History and physical note * Jayde Hebert [...] tablet by mouth once daily. 90 tablet3 gurednp-pqrhsicpa-iwfztlz D3 500 mg-5 mcg (200 unit) per [...] Age of Onset other ( age 60 [place]) Mother hypertension and TB other (pancreatic cancer) [...] in this encounterSelect Medical Specialty Hospital - [place]06-01-2022 History of Present illness Narrative* Jayde Hebert MD - 08/15/2021 4:01 PM EDT Jayro liz is a 86 year old [...] age 51 due to ovarian tumor Manager Of Customer Billing History LMP: Postmenopausal Age at Menarche: Age at First : Age at Menopause: Manager Of Customer Billing History Comments: Sexual Activity: Not Currently; Male [...] Age of Onset other ( age 60 [place]) Mother hypertension and TB other (pancreatic cancer) [...] Take 1 tablet by mouth once daily. hkbgfzz-plkdnxvrr-zlgmghi D3 500 mg-5 mcg (200 unit) per [...] one but not sure this is satisfactory chcf. Use vaginal estrogne 2-3 times a week Patient is likely going to need a cholecystectomy but her surgeon wanted her to have the hysteroscopy D&C and the pathology returned on that before she proceeded with the more invasive cholecystectomy. Medical Decision Making Jayde eHbert MD documented in this encounterSelect Medical Specialty Hospital - [place]06-01-2022 Miscellaneous Notes* Telephone Encounter - An Ta APRN.CNP - 08/15/2021 9:01 AM EDT Patient admitted to hospital. Nitrofurantion discontinued. An Ta APRN.CNP documented in this encounterSelect Medical Specialty Hospital - [place]05-31-2022 Miscellaneous Notes* Telephone Encounter - Nury Andres RP - 08/14/2021 4:37 PM EDT [facility] Ambulatory Pharmacy Anticoagulation Clinic Anticoagulation Episode Summary Anticoagulation Care Providers Provider Role Specialty Phone number Galina Iraheta MD [facility] Internal Medicine [phone] Christian Landrum is a 86 year old [...] Pharmacy Anticoagulation Clinic Pharmacy Anticoagulation Clinic Pager: [phone] . documented in this encounterSelect Medical Specialty Hospital - [place]05-29-2022 Miscellaneous Notes* Telephone Encounter - Daysi Riddle [...] Outcome: Daughter will drive her mother to [facility]. Reason for Disposition [1] Unable to urinate (or only a few drops) > 4 hours AND [2] bladder feels very full (e.g., palpable bladder or strong urge to urinate) Protocols used: URINE - BLOOD IN-ADULT- documented in this encounterSelect Medical Specialty Hospital - [place]05-27-2022 Miscellaneous Notes* Telephone Encounter - Maria A [...] with Pam in lab who spoke with [facility] lab,[facility] was having issues with those orders [...] in this encounterSelect Medical Specialty Hospital - [place]05-25-2022 History of Present illness Narrative* An Ta APRN.CNP - 08/08/2021 2:12 PM EDT CC: Patient presents with: Recheck: Hosp follow up, HPI Christian Landrum is a 86 year old female who presents today for hospital follow- up with daughter who drove her to appointment. Facility: [facility] Date of visit: 07/06/21 - 07/12/21 [...] polyp is addressed and she sees her booth cleaner for her cirrhosis. Post discharge she spent 2 weks for OT and PT at [facility] where is currently on hospice. 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 wefmttt-rguwwfhtf-zserjlf D3 500 mg-5 mcg (200 unit) per [...] Age of Onset other ( age 60 [place]) Mother hypertension and TB other (pancreatic cancer) [...] with more than 50% of the total ygrt-cg-symz time of the visit in counseling / coordination of care. Prescription instructions reviewed with patient as applicable. Potential red flag symptoms discussed with the patient. Reviewed appropriate action plan to take if red flag symptoms occur. Patient agreeable to treatment plan. An Ta APRN.CNP documented in this encounterSelect Medical Specialty [facility]05-17-2022 Miscellaneous Notes* Telephone Encounter - Nruy Andres RPh - 07/31/2021 4:00 PM EDT [facility] Ambulatory Pharmacy Anticoagulation Clinic Anticoagulation Episode Summary Anticoagulation Care Providers Provider Role Specialty Phone number Galina Iraheta MD [facility] Internal Medicine [phone] Christian Landrum is a 86 year old [...] Patient verbalizes understanding of the plan. Nury Anders RPh Clinical Pharmacist, Pharmacy Anticoagulation Clinic Pharmacy Anticoagulation Clinic Pager: [phone] . documented in this encounterSelect Medical Specialty [facility]05-13-2022 Miscellaneous Notes* Telephone Encounter - Maria A Khanna RN - 07/27/2021 12:59 PM EDT Basilia Brown called and is notified of providers message. She voices understanding. Maria A Khanna RN * Telephone Encounter - An Ta APRN.CNP - 07/27/2021 12:41 PM EDT Provider agrees to follow. Thank you An Ta APRN.CHASSIS INSPECTOR * Telephone Encounter - Violet Rockwell RN - 07/27/2021 10:59 AM EDT Ricky Brown, [facility], reports patient is being discharged from [facility] tomorrow with orders for PT & OT. Asking if pcp agrees to follow? Asking for reply today, as they plan to see patient on Friday. [phone] documented in this encounterSelect Medical Specialty [facility] [place]05-10-2022 Miscellaneous Notes* Telephone Encounter - Jocy Scherer - 07/24/2021 2:04 PM EDT LVM with patient and sent msg. Appointment with Shalom on 07/27 needs rescheduled first available. Appt has been cancelled. documented in this encounterSelect Medical Specialty [facility] [place]05-06-2022 Miscellaneous Notes* Telephone Encounter - Juliet Cuevas [...] polypectomy more, but she ended up at [facility] last month for a week d/t multiple medical problems one of thema UTI. Calling today because she is starting with urinary frequency again and worsening vaginal dryness. She has not used estrace cream since 02/2021 sometime. Offered appointment today, but patient is still at [facility] for rehab. Advised to speak to [...] in this encounterSelect Medical Specialty [facility]05-04-2022 Miscellaneous Notes* Telephone Encounter - Vania Guillory RN - 07/18/2021 10:16 AM EDT Patient placed on [facility] list for follow up. Letty Guillory RN Pharmacy Anticoagulation Clinic * Telephone Encounter - Marlin Ansari RPh - 07/18/2021 9:54 AM EDT INR was due today. Reviewed notes and found pt was recently hospitalized and discharged to SNF. Will forward to PAC team to f/u. 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, estrogen receptor positive 06/03/2017 07/06/2021 Personal history of breast cancer 12/18/2016 04/09/2021 Overview: Added automatically from request for surgery [id number] Permanent atrial fibrillation 12/26/2015 Diverticulitis of large [...] of 07/11/2021) [facility]04-22-2022 History of Past illness Narrative* Problem Noted Date Resolved Date Dysuria 07/06/2021 07/08/2021 Obesity, Class I, BMI 30-34.9 01/12/2021 GI bleed 01/12/2021 01/14/2021 Acute blood loss anemia 01/12/2021 01/15/20 LLQ pain 09/05/2017 04/09/2021 Overview: Added automatically from request for surgery [id number] Malignant neoplasm of lower- inner quadrant of right breast of female, estrogen receptor positive 06/03/2017 07/06/2021 Personal history of breast cancer 12/18/2016 04/09/2021 Overview: Added automatically from request for surgery [id number] Permanent atrial fibrillation 12/26/2015 Diverticulitis of large [...] of 07/16/2021) [facility]04-[facility]2022 History of Past illness Narrative* Problem Noted Date Resolved Date Dysuria 07/06/2021 07/08/2021 Obesity, Class I, BMI 30-34.9 01/12/2021 GI bleed 01/12/2021 01/14/2021 Acute blood loss anemia 01/12/2021 01/15/20 LLQ pain 09/05/2017 04/09/2021 Overview: Added automatically from request for surgery [id number] Malignant neoplasm of lower- inner quadrant of right breast of female, estrogen receptor positive 06/03/2017 07/06/2021 Personal history of breast cancer 12/18/2016 04/09/2021 Overview: Added automatically from request for surgery [id number] Permanent atrial fibrillation 12/26/2015 Diverticulitis of large [...] of 07/18/2021) [facility] History of Past illness Narrative* Problem Noted Date Resolved Date Dysuria 07/06/2021 07/08/2021 Obesity, Class I, BMI 30-34.9 01/12/2021 GI bleed 01/12/2021 01/14/2021 Acute blood loss anemia 01/12/2021 01/15/20 LLQ pain 09/05/2017 04/09/2021 Overview: Added automatically from request for surgery [id number] Malignant neoplasm of lower- inner quadrant of right breast of female, estrogen receptor positive 06/03/2017 07/06/2021 Personal history of breast cancer 12/18/2016 04/09/2021 Overview: Added automatically from request for surgery [id number] Permanent atrial fibrillation 12/26/2015 Diverticulitis of large [...] of 07/20/2021) [facility] History of Past illness Narrative* Problem Noted Date Resolved Date Dysuria 07/06/2021 07/08/2021 Obesity, Class I, BMI 30-34.9 01/12/2021 GI bleed 01/12/2021 01/14/2021 Acute blood loss anemia 01/12/2021 01/15/20 LLQ pain 09/05/2017 04/09/2021 Overview: Added automatically from request for surgery [id number] Malignant neoplasm of lower- 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, estrogen receptor positive 06/03/2017 07/06/2021 Personal history of breast cancer 12/18/2016 04/09/2021 Overview: Added automatically from request for surgery [id number] Permanent atrial fibrillation 12/26/2015 Diverticulitis of large [...] of 07/24/2021) [facility] History of Past illness Narrative* Problem Noted Date Resolved Date Dysuria 07/06/2021 07/08/2021 Obesity, Class I, BMI 30-34.9 01/12/2021 GI bleed 01/12/2021 01/14/2021 Acute blood loss anemia 01/12/2021 01/15/20 LLQ pain 09/05/2017 04/09/2021 Overview: Added automatically from request for surgery [id number] Malignant neoplasm of lower- inner quadrant of right breast of female, estrogen receptor positive 06/03/2017 07/06/2021 Personal history of breast cancer 12/18/2016 04/09/2021 Overview: Added automatically from request for surgery [id number] Permanent atrial fibrillation 12/26/2015 Diverticulitis of large [...] of 07/24/2021) [facility] History of Past illness Narrative* Problem Noted Date Resolved Date Dysuria 07/06/2021 07/08/2021 Obesity, Class I, BMI 30-34.9 01/12/2021 GI bleed 01/12/2021 01/14/2021 Acute blood loss anemia 01/12/2021 01/15/20 LLQ pain 09/05/2017 04/09/2021 Overview: Added automatically from request for surgery [id number] Malignant neoplasm of lower- inner quadrant of right breast of female, estrogen receptor positive 06/03/2017 07/06/2021 Personal history of breast cancer 12/18/2016 04/09/2021 Overview: Added automatically from request for surgery [id number] Permanent atrial fibrillation 12/26/2015 Diverticulitis of large [...] [place] on recommendation of Dr. Anegline nath documented as of this encounter (statuses as of 07/27/2021) [facility]20[facility] History of Past illness Narrative* Problem Noted Date Resolved Date Dysuria 07/06/2021 07/08/2021 Obesity, Class I, BMI 30-34.9 01/12/2021 GI bleed 01/12/2021 01/14/2021 Acute blood loss anemia 01/12/2021 01/15/20 LLQ pain 09/05/2017 04/09/2021 Overview: Added automatically from request for surgery [id number] Malignant neoplasm of lower- inner quadrant of right breast of female, estrogen receptor positive 06/03/2017 07/06/2021 Personal history of breast cancer 12/18/2016 04/09/2021 Overview: Added automatically from request for surgery [id number] Permanent atrial fibrillation 12/26/2015 Diverticulitis of large [...] of 07/30/2021) [facility] History of Past illness Narrative* Problem Noted Date Resolved Date Dysuria 07/06/2021 07/08/2021 Obesity, Class I, BMI 30-34.9 01/12/2021 GI bleed 01/12/2021 01/14/2021 Acute blood loss anemia 01/12/2021 01/15/20 LLQ pain 09/05/2017 04/09/2021 Overview: Added automatically from request for surgery [id number] Malignant neoplasm of lower- inner quadrant of right breast of female, estrogen receptor positive 06/03/2017 07/06/2021 Personal history of breast cancer 12/18/2016 04/09/2021 Overview: Added automatically from request for surgery [id number] Permanent atrial fibrillation 12/26/2015 Diverticulitis of large [...] of 07/31/2021) [facility] History of Past illness Narrative* Problem Noted Date Resolved Date Dysuria 07/06/2021 07/08/2021 Obesity, Class I, BMI 30-34.9 01/12/2021 GI bleed 01/12/2021 01/14/2021 Acute blood loss anemia 01/12/2021 01/15/20 LLQ pain 09/05/2017 04/09/2021 Overview: Added automatically from request for surgery [id number] Malignant neoplasm of lower- inner quadrant of right breast of female, estrogen receptor positive 06/03/2017 07/06/2021 Personal history of breast cancer 12/18/2016 04/09/2021 Overview: Added automatically from request for surgery [id number] Permanent atrial fibrillation 12/26/2015 Diverticulitis of large [...] of 08/08/2021) [facility] History of Past illness Narrative* Problem Noted Date Resolved Date Dysuria 07/06/2021 07/08/2021 Obesity, Class I, BMI 30-34.9 01/12/2021 GI bleed 01/12/2021 01/14/2021 Acute blood loss anemia 01/12/2021 01/15/20 LLQ pain 09/05/2017 04/09/2021 Overview: Added automatically from request for surgery [id number] Malignant neoplasm of lower- inner quadrant of right breast of female, estrogen receptor positive 06/03/2017 07/06/2021 Personal history of breast cancer 12/18/2016 04/09/2021 Overview: Added automatically from request for surgery [id number] Permanent atrial fibrillation 12/26/2015 Diverticulitis of large [...] of 08/10/2021) [facility] History of Past illness Narrative* Problem Noted Date Resolved Date Dysuria 07/06/2021 07/08/2021 Obesity, Class I, BMI 30-34.9 01/12/2021 GI bleed 01/12/2021 01/14/2021 Acute blood loss anemia 01/12/2021 01/15/20 LLQ pain 09/05/2017 04/09/2021 Overview: Added automatically from request for surgery [id number] Malignant neoplasm of lower- inner quadrant of right breast of female, estrogen receptor positive 06/03/2017 07/06/2021 Personal history of breast cancer 12/18/2016 04/09/2021 Overview: Added automatically from request for surgery [id number] Permanent atrial fibrillation 12/26/2015 Diverticulitis of large [...] of 08/10/2021) [facility] History of Past illness Narrative* Problem Noted Date Resolved Date Dysuria 07/06/2021 07/08/2021 Obesity, Class I, BMI 30-34.9 01/12/2021 GI bleed 01/12/2021 01/14/2021 Acute blood loss anemia 01/12/2021 01/15/20 LLQ pain 09/05/2017 04/09/2021 Overview: Added automatically from request for surgery [id number] Malignant neoplasm of 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, estrogen receptor positive 06/03/2017 07/06/2021 Personal history of breast cancer 12/18/2016 04/09/2021 Overview: Added automatically from request for surgery [id number] Permanent atrial fibrillation 12/26/2015 Diverticulitis of large [...] of 08/12/2021) [facility] History of Past illness Narrative* Problem Noted Date Resolved Date Dysuria 07/06/2021 07/08/2021 Obesity, Class I, BMI 30-34.9 01/12/2021 GI bleed 01/12/2021 01/14/2021 Acute blood loss anemia 01/12/2021 01/15/20 LLQ pain 09/05/2017 04/09/2021 Overview: Added automatically from request for surgery [id number] Malignant neoplasm of lower- inner quadrant of right breast of female, estrogen receptor positive 06/03/2017 07/06/2021 Personal history of breast cancer 12/18/2016 04/09/2021 Overview: Added automatically from request for surgery [id number] Permanent atrial fibrillation 12/26/2015 Diverticulitis of large [...] of 08/14/2021) [facility] History of Past illness Narrative* Problem Noted Date Resolved Date Dysuria 07/06/2021 07/08/2021 Obesity, Class I, BMI 30-34.9 01/12/2021 GI bleed 01/12/2021 01/14/2021 Acute blood loss anemia 01/12/2021 01/15/20 LLQ pain 09/05/2017 04/09/2021 Overview: Added automatically from request for surgery [id number] Malignant neoplasm of lower- inner quadrant of right breast of female, estrogen receptor positive 06/03/2017 07/06/2021 Personal history of breast cancer 12/18/2016 04/09/2021 Overview: Added automatically from request for surgery [id number] Permanent atrial fibrillation 12/26/2015 Diverticulitis of large [...] of 08/15/2021) [facility] History of Past illness Narrative* Problem Noted Date Resolved Date Dysuria 07/06/2021 07/08/2021 Obesity, Class I, BMI 30-34.9 01/12/2021 GI bleed 01/12/2021 01/14/2021 Acute blood loss anemia 01/12/2021 01/15/20 21 LLQ pain 09/05/2017 04/09/2021 Overview: Added automatically from request for surgery [id number] Malignant neoplasm of lower- inner quadrant of right breast of female, estrogen receptor positive 06/03/2017 07/06/2021 Personal history of breast cancer 12/18/2016 04/09/2021 Overview: Added automatically from request for surgery [id number] Permanent atrial fibrillation 12/26/2015 Diverticulitis of large [...] lower leg 12/12/201203/18 Urinary tract infection 09/02/2012 01/30/20 15 Abdominal pain 09/02/2012 04/15/2014 C. difficile [...] of 08/16/2021) [facility] History of Past illness Narrative* Problem Noted Date Resolved Date Dysuria 07/06/2021 07/08/2021 Obesity, Class I, BMI 30-34.9 01/12/2021 GI bleed 01/12/2021 01/14/2021 Acute blood loss anemia 01/12/2021 01/15/20 21 LLQ pain 09/05/2017 04/09/2021 Overview: Added automatically from request for surgery [id number] Malignant neoplasm of lower- inner quadrant of right breast of female, estrogen receptor positive 06/03/2017 07/06/2021 Personal history of breast cancer 12/18/2016 04/09/2021 Overview: Added automatically from request for surgery [id number] Permanent atrial fibrillation 12/26/2015 Diverticulitis of large [...] of 08/17/2021) [facility] History of Past illness Narrative* Problem Noted Date Resolved Date Dysuria 07/06/2021 07/08/2021 Obesity, Class I, BMI 30-34.9 01/12/2021 GI bleed 01/12/2021 01/14/2021 Acute blood loss anemia 01/12/2021 01/15/20 21 LLQ pain 09/05/2017 04/09/2021 Overview: Added automatically from request for surgery [id number] Malignant neoplasm of lower- inner quadrant of right breast of female, estrogen receptor positive 06/03/2017 07/06/2021 Personal history of breast cancer 12/18/2016 04/09/2021 Overview: Added automatically from request for surgery [id number] Permanent atrial fibrillation 12/26/2015 Diverticulitis of large [...] of 08/20/2021) [facility] History of Past illness Narrative* Problem Noted Date Resolved Date Dysuria 07/06/2021 07/08/2021 Obesity, Class I, BMI 30-34.9 01/12/2021 GI bleed 01/12/2021 01/14/2021 Acute blood loss anemia 01/12/2021 01/15/20 21 LLQ pain 09/05/2017 04/09/2021 Overview: Added automatically from request for surgery [id number] Malignant neoplasm of lower- inner quadrant of right breast of female, estrogen receptor positive 06/03/2017 07/06/2021 Personal history of breast cancer 12/18/2016 04/09/2021 Overview: Added automatically from request for surgery [id number] Permanent atrial fibrillation 12/26/2015 Diverticulitis of large [...] of 08/22/2021) [facility] History of Past illness Narrative* Problem Noted Date Resolved Date Dysuria 07/06/2021 07/08/2021 Obesity, Class I, BMI 30-34.9 01/12/2021 GI bleed 01/12/2021 01/14/2021 Acute blood loss anemia 01/12/2021 01/15/20 LLQ pain 09/05/2017 04/09/2021 Overview: Added automatically from request for surgery [id number] Malignant neoplasm of lower- inner quadrant of right breast of female, estrogen receptor positive 06/03/2017 07/06/2021 Personal history of breast cancer 12/18/2016 04/09/2021 Overview: Added automatically from request for surgery [id number] Permanent atrial fibrillation 12/26/2015 Diverticulitis of large [...] of 08/26/2021) [facility] History of Past illness Narrative* Problem Noted Date Resolved Date Dysuria 07/06/2021 07/08/2021 Obesity, Class I, BMI 30-34.9 01/12/2021 GI bleed 01/12/2021 01/14/2021 Acute blood loss anemia 01/12/2021 01/15/20 21 LLQ pain 09/05/2017 04/09/2021 Overview: Added automatically from request for surgery [id number] Malignant neoplasm of lower- inner quadrant of right breast of female, estrogen receptor positive 06/03/2017 07/06/2021 Personal history of breast cancer 12/18/2016 04/09/2021 Overview: Added automatically from request for surgery [id number] Permanent atrial fibrillation 12/26/2015 Diverticulitis of large [...] of 08/26/2021) [facility] History of Past illness Narrative* Problem Noted Date Resolved Date Dysuria 07/06/2021 07/08/2021 Obesity, Class I, BMI 30-34.9 01/12/2021 GI bleed 01/12/2021 01/14/2021 Acute blood loss anemia 01/12/2021 01/15/20 LLQ pain 09/05/2017 04/09/2021 Overview: Added automatically from request for surgery [id number] Malignant neoplasm of lower- inner quadrant of right breast of female, estrogen receptor positive 06/03/2017 07/06/2021 Personal history of breast cancer 12/18/2016 04/09/2021 Overview: Added automatically from request for surgery [id number] Permanent atrial fibrillation 12/26/2015 Diverticulitis of large [...] of 08/26/2021) [facility] History of Past illness Narrative* Problem Noted Date Resolved Date Dysuria 07/06/2021 07/08/2021 Obesity, Class I, BMI 30-34.9 01/12/2021 GI bleed 01/12/2021 01/14/2021 Acute blood loss anemia 01/12/2021 01/15/20 LLQ pain 09/05/2017 04/09/2021 Overview: Added automatically from request for surgery [id number] Malignant neoplasm of lower- inner quadrant of right breast of female, estrogen receptor positive 06/03/2017 07/06/2021 Personal history of breast cancer 12/18/2016 04/09/2021 Overview: Added automatically from request for surgery [id number] Permanent atrial fibrillation 12/26/2015 Diverticulitis of large [...] of 08/26/2021) [facility] History of Past illness Narrative* Problem Noted Date Resolved Date Dysuria 07/06/2021 07/08/2021 Obesity, Class I, BMI 30-34.9 01/12/2021 GI bleed 01/12/2021 01/14/2021 Acute blood loss anemia 01/12/2021 01/15/20 21 LLQ pain 09/05/2017 04/09/2021 Overview: Added automatically from request for surgery [id number] Malignant neoplasm of lower- inner quadrant of right breast of female, estrogen receptor positive 06/03/2017 07/06/2021 Personal history of breast cancer 12/18/2016 04/09/2021 Overview: Added automatically from request for surgery [id number] Permanent atrial fibrillation 12/26/2015 Diverticulitis of large [...] of 08/28/2021) [facility] History of Past illness Narrative* Problem Noted Date Resolved Date Dysuria 07/06/2021 07/08/2021 Obesity, Class I, BMI 30-34.9 01/12/2021 GI bleed 01/12/2021 01/14/2021 Acute blood loss anemia 01/12/2021 01/15/20 21 LLQ pain 09/05/2017 04/09/2021 Overview: Added automatically from request for surgery [id number] Malignant neoplasm of lower- inner quadrant of right breast of female, estrogen receptor positive 06/03/2017 07/06/2021 Personal history of breast cancer 12/18/2016 04/09/2021 Overview: Added automatically from request for surgery [id number] Permanent atrial fibrillation 12/26/2015 Diverticulitis of large [...] of 08/28/2021) [facility] History of Past illness Narrative* Problem Noted Date Resolved Date Dysuria 07/06/2021 07/08/2021 Obesity, Class I, BMI 30-34.9 01/12/2021 GI bleed 01/12/2021 01/14/2021 Acute blood loss anemia 01/12/2021 01/15/20 LLQ pain 09/05/2017 04/09/2021 Overview: Added automatically from request for surgery [id number] Malignant neoplasm of lower- inner quadrant of right breast of female, estrogen receptor positive 06/03/2017 07/06/2021 Personal history of breast cancer 12/18/2016 04/09/2021 Overview: Added automatically from request for surgery [id number] Permanent atrial fibrillation 12/26/2015 Diverticulitis of large [...] of 08/30/2021) [facility] History of Past illness Narrative* Problem Noted Date Resolved Date Dysuria 07/06/2021 07/08/2021 Obesity, Class I, BMI 30-34.9 01/12/2021 GI bleed 01/12/2021 01/14/2021 Acute blood loss anemia 01/12/2021 01/15/20 21 LLQ pain 09/05/2017 04/09/2021 Overview: Added automatically from request for surgery [id number] Malignant neoplasm of lower- inner quadrant of right breast of female, estrogen receptor positive 06/03/2017 07/06/2021 Personal history of breast cancer 12/18/2016 04/09/2021 Overview: Added automatically from request for surgery [id number] Permanent atrial fibrillation 12/26/2015 Diverticulitis of large [...] of 08/31/2021) [facility] History of Past illness Narrative* Problem Noted Date Resolved Date Dysuria 07/06/2021 07/08/2021 Obesity, Class I, BMI 30-34.9 01/12/2021 GI bleed 01/12/2021 01/14/2021 Acute blood loss anemia 01/12/2021 01/15/20 21 LLQ pain 09/05/2017 04/09/2021 Overview: Added automatically from request for surgery [id number] Malignant neoplasm of lower- inner quadrant of right breast of female, estrogen receptor positive 06/03/2017 07/06/2021 Personal history of breast cancer 12/18/2016 04/09/2021 Overview: Added automatically from request for surgery [id number] Permanent atrial fibrillation 12/26/2015 Diverticulitis of large [...] of 09/05/2021) [facility] History of Past illness Narrative* Problem Noted Date Resolved Date Dysuria 07/06/2021 07/08/2021 Obesity, Class I, BMI 30-34.9 01/12/2021 GI bleed 01/12/2021 01/14/2021 Acute blood loss anemia 01/12/2021 01/15/20 21 LLQ pain 09/05/2017 04/09/2021 Overview: Added automatically from request for surgery [id number] Malignant neoplasm of lower- inner quadrant of right breast of female, estrogen receptor positive 06/03/2017 07/06/2021 Personal history of breast cancer 12/18/2016 04/09/2021 Overview: Added automatically from request for surgery [id number] Permanent atrial fibrillation 12/26/2015 Diverticulitis of large [...] of 09/05/2021) [facility] History of Past illness Narrative* Problem Noted Date Resolved Date Dysuria 07/06/2021 07/08/2021 Obesity, Class I, BMI 30-34.9 01/12/2021 GI bleed 01/12/2021 01/14/2021 Acute blood loss anemia 01/12/2021 01/15/20 LLQ pain 09/05/2017 04/09/2021 Overview: Added automatically from request for surgery [id number] Malignant neoplasm of lower- inner quadrant of right breast of female, estrogen receptor positive 06/03/2017 07/06/2021 Personal history of breast cancer 12/18/2016 04/09/2021 Overview: Added automatically from request for surgery [id number] Permanent atrial fibrillation 12/26/2015 Diverticulitis of large [...] of 09/07/2021) [facility] History of Past illness Narrative* Problem Noted Date Resolved Date Dysuria 07/06/2021 07/08/2021 Obesity, Class I, BMI 30-34.9 01/12/2021 GI bleed 01/12/2021 01/14/2021 Acute blood loss anemia 01/12/2021 01/15/20 21 LLQ pain 09/05/2017 04/09/2021 Overview: Added automatically from request for surgery [id number] Malignant neoplasm of lower- inner quadrant of right breast of female, estrogen receptor positive 06/03/2017 07/06/2021 Personal history of breast cancer 12/18/2016 04/09/2021 Overview: Added automatically from request for surgery [id number] Permanent atrial fibrillation 12/26/2015 Diverticulitis of large [...] Pain in joint, pelvic region and thigh 201 0 04/15/2014 Family history of malignant neoplasm [...] of 09/10/2021) [facility] History of Past illness Narrative* Problem Noted Date Resolved Date Dysuria 07/06/2021 07/08/2021 Obesity, Class I, BMI 30-34.9 01/12/2021 GI bleed 01/12/2021 01/14/2021 Acute blood loss anemia 01/12/2021 01/15/20 21 LLQ pain 09/05/2017 04/09/2021 Overview: Added automatically from request for surgery [id number] Malignant neoplasm of lower- inner quadrant of right breast of female, estrogen receptor positive 06/03/2017 07/06/2021 Personal history of breast cancer 12/18/2016 04/09/2021 Overview: Added automatically from request for surgery [id number] Permanent atrial fibrillation 12/26/2015 Diverticulitis of large [...] 2007. On tamoxifen Last Assessment & Plan: summer 2015, and 2007. On tamoxifen Lump or [...] of 09/11/2021) [facility] History of Past illness Narrative* Problem Noted Date Resolved Date Dysuria 07/06/2021 07/08/2021 Obesity, Class I, BMI 30-34.9 01/12/2021 GI bleed 01/12/2021 01/14/2021 Acute blood loss anemia 01/12/2021 01/15/20 LLQ pain 09/05/2017 04/09/2021 Overview: Added automatically from request for surgery [id number] Malignant neoplasm of lower- inner quadrant of right breast of female, estrogen receptor positive 06/03/2017 07/06/2021 Personal history of breast cancer 12/18/2016 04/09/2021 Overview: Added automatically from request for surgery [id number] Permanent atrial fibrillation 12/26/2015 Diverticulitis of large [...] of 09/12/2021) [facility] History of Past illness Narrative* Problem Noted Date Resolved Date Dysuria 07/06/2021 07/08/2021 Obesity, Class I, BMI 30-34.9 01/12/2021 GI bleed 01/12/2021 01/14/2021 Acute blood loss anemia 01/12/2021 01/15/20 21 LLQ pain 09/05/2017 04/09/2021 Overview: Added automatically from request for surgery [id number] Malignant neoplasm of lower- inner quadrant of right breast of female, estrogen receptor positive 06/03/2017 07/06/2021 Personal history of breast cancer 12/18/2016 04/09/2021 Overview: Added automatically from request for surgery [id number] Permanent atrial fibrillation 12/26/2015 Diverticulitis of large [...] of 09/18/2021) [facility] History of Past illness Narrative* Problem Noted Date Resolved Date Dysuria 07/06/2021 07/08/2021 Obesity, Class I, BMI 30-34.9 01/12/2021 GI bleed 01/12/2021 01/14/2021 Acute blood loss anemia 01/12/2021 01/15/20 21 LLQ pain 09/05/2017 04/09/2021 Overview: Added automatically from request for surgery [id number] Malignant neoplasm of lower- inner quadrant of right breast of female, estrogen receptor positive 06/03/2017 07/06/2021 Personal history of breast cancer 12/18/2016 04/09/2021 Overview: Added automatically from request for surgery [id number] Permanent atrial fibrillation 12/26/2015 Diverticulitis of large [...] of 09/18/2021) [facility]04-22-2022 History of Past illness Narrative* Problem Noted Date Resolved Date Dysuria 07/06/2021 07/08/2021 Obesity, Class I, BMI 30-34.9 01/12/2021 GI bleed 01/12/2021 01/14/2021 Acute blood loss anemia 01/12/2021 01/15/20 21 LLQ pain 09/05/2017 04/09/2021 Overview: Added automatically from request for surgery [id number] Malignant neoplasm of lower- inner quadrant of right breast of female, estrogen receptor positive 06/03/2017 07/06/2021 Personal history of breast cancer 12/18/2016 04/09/2021 Overview: Added automatically from request for surgery [id number] Permanent atrial fibrillation 12/26/2015 Diverticulitis of large [...] of 09/19/2021) [facility]04-[facility]2022 History of Past illness Narrative* Problem Noted Date Resolved Date Dysuria 07/06/2021 07/08/2021 Obesity, Class I, BMI 30-34.9 01/12/2021 GI bleed 01/12/2021 01/14/2021 Acute blood loss anemia 01/12/2021 01/15/20 LLQ pain 09/05/2017 04/09/2021 Overview: Added automatically from request for surgery [id number] Malignant neoplasm of lower- inner quadrant of right breast of female, estrogen receptor positive 06/03/2017 07/06/2021 Personal history of breast cancer 12/18/2016 04/09/2021 Overview: Added automatically from request for surgery [id number] Permanent atrial fibrillation 12/26/2015 Diverticulitis of large [...] of 09/28/2021) [facility]2022 History of Past illness Narrative* Problem Noted Date Resolved Date Dysuria 07/06/2021 07/08/2021 Obesity, Class I, BMI 30-34.9 01/12/2021 GI bleed 01/12/2021 01/14/2021 Acute blood loss anemia 01/12/2021 01/15/20 21 LLQ pain 09/05/2017 04/09/2021 Overview: Added automatically from request for surgery [id number] Malignant neoplasm of lower- inner quadrant of right breast of female, estrogen receptor positive 06/03/2017 07/06/2021 Personal history of breast cancer 12/18/2016 04/09/2021 Overview: Added automatically from request for surgery [id number] Permanent atrial fibrillation 12/26/2015 Diverticulitis of large [...] of 10/02/2021) [facility] History of Past illness Narrative* Problem Noted Date Resolved Date Dysuria 07/06/2021 07/08/2021 Obesity, Class I, BMI 30-34.9 01/12/2021 GI bleed 01/12/2021 01/14/2021 Acute blood loss anemia 01/12/2021 01/15/20 21 LLQ pain 09/05/2017 04/09/2021 Overview: Added automatically from request for surgery [id number] Malignant neoplasm of lower- inner quadrant of right breast of female, estrogen receptor positive 06/03/2017 07/06/2021 Personal history of breast cancer 12/18/2016 04/09/2021 Overview: Added automatically from request for surgery [id number] Permanent atrial fibrillation 12/26/2015 Diverticulitis of large [...] of 10/11/2021) [facility] History of Past illness Narrative* Problem Noted Date Resolved Date Dysuria 07/06/2021 07/08/2021 Obesity, Class I, BMI 30-34.9 01/12/2021 GI bleed 01/12/2021 01/14/2021 Acute blood loss anemia 01/12/2021 01/15/20 LLQ pain 09/05/2017 04/09/2021 Overview: Added automatically from request for surgery [id number] Malignant neoplasm of lower- inner quadrant of right breast of female, estrogen receptor positive 06/03/2017 07/06/2021 Personal history of breast cancer 12/18/2016 04/09/2021 Overview: Added automatically from request for surgery [id number] Permanent atrial fibrillation 12/26/2015 Diverticulitis of large [...] of 10/15/2021) [facility] History of Past illness Narrative* Problem Noted Date Resolved Date Dysuria 07/06/2021 07/08/2021 Obesity, Class I, BMI 30-34.9 01/12/2021 GI bleed 01/12/2021 01/14/2021 Acute blood loss anemia 01/12/2021 01/15/20 21 LLQ pain 09/05/2017 04/09/2021 Overview: Added automatically from request for surgery [id number] Malignant neoplasm of lower- inner quadrant of right breast of female, estrogen receptor positive 06/03/2017 07/06/2021 Personal history of breast cancer 12/18/2016 04/09/2021 Overview: Added automatically from request for surgery [id number] Permanent atrial fibrillation 12/26/2015 Diverticulitis of large [...] of 10/15/2021) [facility] History of Past illness Narrative* Problem Noted Date Resolved Date Dysuria 07/06/2021 07/08/2021 Obesity, Class I, BMI 30-34.9 01/12/2021 GI bleed 01/12/2021 01/14/2021 Acute blood loss anemia 01/12/2021 01/15/20 21 LLQ pain 09/05/2017 04/09/2021 Overview: Added automatically from request for surgery [id number] Malignant neoplasm of lower- inner quadrant of right breast of female, estrogen receptor positive 06/03/2017 07/06/2021 Personal history of breast cancer 12/18/2016 04/09/2021 Overview: Added automatically from request for surgery [id number] Permanent atrial fibrillation 12/26/2015 Diverticulitis of large [...] of 10/16/2021) [facility] History of Past illness Narrative* Problem Noted Date Resolved Date Dysuria 07/06/2021 07/08/2021 Obesity, Class I, BMI 30-34.9 01/12/2021 GI bleed 01/12/2021 01/14/2021 Acute blood loss anemia 01/12/2021 01/15/20 21 LLQ pain 09/05/2017 04/09/2021 Overview: Added automatically from request for surgery [id number] Malignant neoplasm of lower- inner quadrant of right breast of female, estrogen receptor positive 06/03/2017 07/06/2021 Personal history of breast cancer 12/18/2016 04/09/2021 Overview: Added automatically from request for surgery [id number] Permanent atrial fibrillation 12/26/2015 Diverticulitis of large [...] of 10/17/2021) [facility] History of Past illness Narrative* Problem Noted Date Resolved Date Dysuria 07/06/2021 07/08/2021 Obesity, Class I, BMI 30-34.9 01/12/2021 GI bleed 01/12/2021 01/14/2021 Acute blood loss anemia 01/12/2021 01/15/20 21 LLQ pain 09/05/2017 04/09/2021 Overview: Added automatically from request for surgery [id number] Malignant neoplasm of lower- inner quadrant of right breast of female, estrogen receptor positive 06/03/2017 07/06/2021 Personal history of breast cancer 12/18/2016 04/09/2021 Overview: Added automatically from request for surgery [id number] Permanent atrial fibrillation 12/26/2015 Diverticulitis of large [...] of 10/17/2021) [facility] History of Past illness Narrative* Problem Noted Date Resolved Date Dysuria 07/06/2021 07/08/2021 Obesity, Class I, BMI 30-34.9 01/12/2021 GI bleed 01/12/2021 01/14/2021 Acute blood loss anemia 01/12/2021 01/15/20 21 LLQ pain 09/05/2017 04/09/2021 Overview: Added automatically from request for surgery [id number] Malignant neoplasm of lower- inner quadrant of right breast of female, estrogen receptor positive 06/03/2017 07/06/2021 Personal history of breast cancer 12/18/2016 04/09/2021 Overview: Added automatically from request for surgery [id number] Permanent atrial fibrillation 12/26/2015 Diverticulitis of large [...] of 10/22/2021) [facility] History of Past illness Narrative* Problem Noted Date Resolved Date Dysuria 07/06/2021 07/08/2021 Obesity, Class I, BMI 30-34.9 01/12/2021 GI bleed 01/12/2021 01/14/2021 Acute blood loss anemia 01/12/2021 01/15/20 21 LLQ pain 09/05/2017 04/09/2021 Overview: Added automatically from request for surgery [id number] Malignant neoplasm of lower- inner quadrant of right breast of female, estrogen receptor positive 06/03/2017 07/06/2021 Personal history of breast cancer 12/18/2016 04/09/2021 Overview: Added automatically from request for surgery [id number] Permanent atrial fibrillation 12/26/2015 Diverticulitis of large [...] of 11/02/2021) [facility] History of Past illness Narrative* Problem Noted Date Resolved Date Dysuria 07/06/2021 07/08/2021 Obesity, Class I, BMI 30-34.9 01/12/2021 GI bleed 01/12/2021 01/14/2021 Acute blood loss anemia 01/12/2021 01/15/20 21 LLQ pain 09/05/2017 04/09/2021 Overview: Added automatically from request for surgery [id number] Malignant neoplasm of lower- inner quadrant of right breast of female, estrogen receptor positive 06/03/2017 07/06/2021 Personal history of breast cancer 12/18/2016 04/09/2021 Overview: Added automatically from request for surgery [id number] Permanent atrial fibrillation 12/26/2015 Diverticulitis of large [...] of 11/06/2021) [facility] History of Past illness Narrative* Problem Noted Date Resolved Date Dysuria 07/06/2021 07/08/2021 Obesity, Class I, BMI 30-34.9 01/12/2021 GI bleed 01/12/2021 01/14/2021 Acute blood loss anemia 01/12/2021 01/15/20 21 LLQ pain 09/05/2017 04/09/2021 Overview: Added automatically from request for surgery [id number] Malignant neoplasm of lower- inner quadrant of right breast of female, estrogen receptor positive 06/03/2017 07/06/2021 Personal history of breast cancer 12/18/2016 04/09/2021 Overview: Added automatically from request for surgery [id number] Permanent atrial fibrillation 12/26/2015 Diverticulitis of large [...] of 11/13/2021) [facility] History of Past illness Narrative* Problem Noted Date Resolved Date Dysuria 07/06/2021 07/08/2021 Obesity, Class I, BMI 30-34.9 01/12/2021 GI bleed 01/12/2021 01/14/2021 Acute blood loss anemia 01/12/2021 01/15/20 LLQ pain 09/05/2017 04/09/2021 Overview: Added automatically from request for surgery [id number] Malignant neoplasm of lower- inner quadrant of right breast of female, estrogen receptor positive 06/03/2017 07/06/2021 Personal history of breast cancer 12/18/2016 04/09/2021 Overview: Added automatically from request for surgery [id number] Permanent atrial fibrillation 12/26/2015 Diverticulitis of large [...] Other and unspecified noninf ectious gastroenteritis and colitis(898.9) 11/03/2014 11/03/2014 Other specified rheumatoid arthritis, multiple [...] of 12/11/2021) [facility]20[facility] History of Past illness Narrative* Problem Noted Date Resolved Date Dysuria 07/06/2021 07/08/2021 Obesity, Class I, BMI 30-34.9 01/12/2021 GI bleed 01/12/2021 01/14/2021 Acute blood loss anemia 01/12/2021 01/15/20 LLQ pain 09/05/2017 04/09/2021 Overview: Added automatically from request for surgery [id number] Malignant neoplasm of lower- inner quadrant of right breast of female, estrogen receptor positive 06/03/2017 07/06/2021 Personal history of breast cancer 12/18/2016 04/09/2021 Overview: Added automatically from request for surgery [id number] Permanent atrial fibrillation 12/26/2015 Diverticulitis of large inte [place] without perforation or abscess without bleeding 11/17/2015 [...] of 12/25/2021) [facility] History of Past illness Narrative* Problem Noted Date Resolved Date Dysuria 07/06/2021 07/08/2021 Obesity, Class I, BMI 30-34.9 01/12/2021 GI bleed 01/12/2021 01/14/2021 Acute blood loss anemia 01/12/2021 01/15/20 21 LLQ pain 09/05/2017 04/09/2021 Overview: Added automatically from request for surgery [id number] 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, estrogen receptor positive 06/03/2017 07/06/2021 Personal history of breast cancer 12/18/2016 04/09/2021 Overview: Added automatically from request for surgery [id number] Permanent atrial fibrillation 12/26/2015 Diverticulitis of large [...] of 01/02/2022) [facility] History of Past illness Narrative* Problem Noted Date Resolved Date Dysuria 07/06/2021 07/08/2021 Obesity, Class I, BMI 30-34.9 01/12/2021 GI bleed 01/12/2021 01/14/2021 Acute blood loss anemia 01/12/2021 01/15/20 21 LLQ pain 09/05/2017 04/09/2021 Overview: Added automatically from request for surgery [id number] Malignant neoplasm of lower- inner quadrant of right breast of female, estrogen receptor positive 06/03/2017 07/06/2021 Personal history of breast cancer 12/18/2016 04/09/2021 Overview: Added automatically from request for surgery [id number] Permanent atrial fibrillation 12/26/2015 Diverticulitis of large [...] of 01/08/2022) [facility] History of Past illness Narrative* Problem Noted Date Resolved Date Dysuria 07/06/2021 07/08/2021 Obesity, Class I, BMI 30-34.9 01/12/2021 GI bleed 01/12/2021 01/14/2021 Acute blood loss anemia 01/12/2021 01/15/20 LLQ pain 09/05/2017 04/09/2021 Overview: Added automatically from request for surgery [id number] Malignant neoplasm of lower- inner quadrant of right breast of female, estrogen receptor positive 06/03/2017 07/06/2021 Personal history of breast cancer 12/18/2016 04/09/2021 Overview: Added automatically from request for surgery [id number] Permanent atrial fibrillation 12/26/2015 Diverticulitis of large [...] of 01/21/2022) [facility] History of Past illness Narrative* Problem Noted Date Resolved Date Dysuria 07/06/2021 07/08/2021 Obesity, Class I, BMI 30-34.9 01/12/2021 GI bleed 01/12/2021 01/14/2021 Acute blood loss anemia 01/12/2021 01/15/20 21 LLQ pain 09/05/2017 04/09/2021 Overview: Added automatically from request for surgery [id number] Malignant neoplasm of lower- inner quadrant of right breast of female, estrogen receptor positive 06/03/2017 07/06/2021 Personal history of breast cancer 12/18/2016 04/09/2021 Overview: Added automatically from request for surgery [id number] Permanent atrial fibrillation 12/26/2015 Diverticulitis of large [...] of 02/05/2022) [facility] History of Past illness Narrative* Problem Noted Date Resolved Date Dysuria 07/06/2021 07/08/2021 Obesity, Class I, BMI 30-34.9 01/12/2021 GI bleed 01/12/2021 01/14/2021 Acute blood loss anemia 01/12/2021 01/15/20 21 LLQ pain 09/05/2017 04/09/2021 Overview: Added automatically from request for surgery [id number] Malignant neoplasm of lower- inner quadrant of right breast of female, estrogen receptor positive 06/03/2017 07/06/2021 Personal history of breast cancer 12/18/2016 04/09/2021 Overview: Added automatically from request for surgery [id number] Permanent atrial fibrillation 12/26/2015 Diverticulitis of large [...] of 03/09/2022) [facility] History of Past illness Narrative* Problem Noted Date Resolved Date Dysuria 07/06/2021 07/08/2021 Obesity, Class I, BMI 30-34.9 01/12/2021 GI bleed 01/12/2021 01/14/2021 Acute blood loss anemia 01/12/2021 01/15/20 LLQ pain 09/05/2017 04/09/2021 Overview: Added automatically from request for surgery [id number] Malignant neoplasm of lower- inner quadrant of right breast of female, estrogen receptor positive 06/03/2017 07/06/2021 Personal history of breast cancer 12/18/2016 04/09/2021 Overview: Added automatically from request for surgery [id number] Permanent atrial fibrillation 12/26/2015 Diverticulitis of large [...] of 03/17/2022) [facility] History of Past illness Narrative* Problem Noted Date Resolved Date Dysuria 07/06/2021 07/08/2021 Obesity, Class I, BMI 30-34.9 01/12/2021 GI bleed 01/12/2021 01/14/2021 Acute blood loss anemia 01/12/2021 01/15/20 21 LLQ pain 09/05/2017 04/09/2021 Overview: Added automatically from request for surgery [id number] Malignant neoplasm of lower- inner quadrant of right breast of female, estrogen receptor positive 06/03/2017 07/06/2021 Personal history of breast cancer 12/18/2016 04/09/2021 Overview: Added automatically from request for surgery [id number] Permanent atrial fibrillation 12/26/2015 Diverticulitis of large [...] of 03/20/2022) [facility] History of Past illness Narrative* Problem Noted Date Resolved Date Dysuria 07/06/2021 07/08/2021 Obesity, Class I, BMI 30-34.9 01/12/2021 GI bleed 01/12/2021 01/14/2021 Acute blood loss anemia 01/12/2021 01/15/20 21 LLQ pain 09/05/2017 04/09/2021 Overview: Added automatically from request for surgery [id number] Malignant neoplasm of lower- inner quadrant of right breast of female, estrogen receptor positive 06/03/2017 07/06/2021 Personal history of breast cancer 12/18/2016 04/09/2021 Overview: Added automatically from request for surgery [id number] Permanent atrial fibrillation 12/26/2015 Diverticulitis of large [...] of 03/23/2022) [facility] History of Past illness Narrative* Problem Noted Date Resolved Date Dysuria 07/06/2021 07/08/2021 Obesity, Class I, BMI 30-34.9 01/12/2021 GI bleed 01/12/2021 01/14/2021 Acute blood loss anemia 01/12/2021 01/15/20 LLQ pain 09/05/2017 04/09/2021 Overview: Added automatically from request for surgery [id number] Malignant neoplasm of lower- inner quadrant of right breast of female, estrogen receptor positive 06/03/2017 07/06/2021 Personal history of breast cancer 12/18/2016 04/09/2021 Overview: Added automatically from request for surgery [id number] Permanent atrial fibrillation 12/26/2015 Diverticulitis of large [...] of 03/23/2022) [facility] History of Past illness Narrative* Problem Noted Date Resolved Date Dysuria 07/06/2021 07/08/2021 Obesity, Class I, BMI 30-34.9 01/12/2021 GI bleed 01/12/2021 01/14/2021 Acute blood loss anemia 01/12/2021 01/15/20 21 LLQ pain 09/05/2017 04/09/2021 Overview: Added automatically from request for surgery [id number] Malignant neoplasm of lower- inner quadrant of right breast of female, estrogen receptor positive 06/03/2017 07/06/2021 Personal history of breast cancer 12/18/2016 04/09/2021 Overview: Added automatically from request for surgery [id number] Permanent atrial fibrillation 12/26/2015 Diverticulitis of large [...] of 03/25/2022) [facility] History of Past illness Narrative* Problem Noted Date Resolved Date Dysuria 07/06/2021 07/08/2021 Obesity, Class I, BMI 30-34.9 01/12/2021 GI bleed 01/12/2021 01/14/2021 Acute blood loss anemia 01/12/2021 01/15/20 21 LLQ pain 09/05/2017 04/09/2021 Overview: Added automatically from request for surgery [id number] Malignant neoplasm of lower- inner quadrant of right breast of female, estrogen receptor positive 06/03/2017 07/06/2021 Personal history of breast cancer 12/18/2016 04/09/2021 Overview: Added automatically from request for surgery [id number] Permanent atrial fibrillation 12/26/2015 Diverticulitis of large [...] of 04/08/2022) [facility] History of Past illness Narrative* Problem Noted Date Resolved Date Dysuria 07/06/2021 07/08/2021 Obesity, Class I, BMI 30-34.9 01/12/2021 GI bleed 01/12/2021 01/14/2021 Acute blood loss anemia 01/12/2021 01/15/20 LLQ pain 09/05/2017 04/09/2021 Overview: Added automatically from request for surgery [id number] Malignant neoplasm of lower- inner quadrant of right breast of female, estrogen receptor positive 06/03/2017 07/06/2021 Personal history of breast cancer 12/18/2016 04/09/2021 Overview: Added automatically from request for surgery [id number] Permanent atrial fibrillation 12/26/2015 Diverticulitis of large [...] 12/12/2012 Symptomatic menopausal or female climacteric sta trcay 02/04/2008 04/14/2013 Personal history of malignant neoplasm [...] of 04/10/2022) [facility] History of Past illness Narrative* Problem Noted Date Resolved Date Dysuria 07/06/2021 07/08/2021 Obesity, Class I, BMI 30-34.9 01/12/2021 GI bleed 01/12/2021 01/14/2021 Acute blood loss anemia 01/12/2021 01/15/20 21 LLQ pain 09/05/2017 04/09/2021 Overview: Added automatically from request for surgery [id number] Malignant neoplasm of lower- inner quadrant of right breast of female, estrogen receptor positive 06/03/2017 07/06/2021 Personal history of breast cancer 12/18/2016 04/09/2021 Overview: Added automatically from request for surgery [id number] Permanent atrial fibrillation 12/26/2015 Diverticulitis of large [...] of 04/12/2022) [facility] History of Past illness Narrative* Problem Noted Date Resolved Date Dysuria 07/06/2021 07/08/2021 Obesity, Class I, BMI 30-34.9 01/12/2021 GI bleed 01/12/2021 01/14/2021 Acute blood loss anemia 01/12/2021 01/15/20 21 LLQ pain 09/05/2017 04/09/2021 Overview: Added automatically from request for surgery [id number] Malignant neoplasm of lower- inner quadrant of right breast of female, estrogen receptor positive 06/03/2017 07/06/2021 Personal history of breast cancer 12/18/2016 04/09/2021 Overview: Added automatically from request for surgery [id number] Permanent atrial fibrillation 12/26/2015 Diverticulitis of large [...] of 04/15/2022) [facility] History of Past illness Narrative* Problem Noted Date Resolved Date Dysuria 07/06/2021 07/08/2021 Obesity, Class I, BMI 30-34.9 01/12/2021 GI bleed 01/12/2021 01/14/2021 Acute blood loss anemia 01/12/2021 01/15/20 LLQ pain 09/05/2017 04/09/2021 Overview: Added automatically from request for surgery [id number] Malignant neoplasm of lower- inner quadrant of right breast of female, estrogen receptor positive 06/03/2017 07/06/2021 Personal history of breast cancer 12/18/2016 04/09/2021 Overview: Added automatically from request for surgery [id number] Permanent atrial fibrillation 12/26/2015 Diverticulitis of large [...] 12/12/2012 Symptomatic menopausal or female climacteric sta trayc 02/04/2008 04/14/2013 Personal history of malignant neoplasm [...] of 04/16/2022) [facility] History of Past illness Narrative* Problem Noted Date Resolved Date Dysuria 07/06/2021 07/08/2021 Obesity, Class I, BMI 30-34.9 01/12/2021 GI bleed 01/12/2021 01/14/2021 Acute blood loss anemia 01/12/2021 01/15/20 21 LLQ pain 09/05/2017 04/09/2021 Overview: Added automatically from request for surgery [id number] Malignant neoplasm of lower- inner quadrant of right breast of female, estrogen receptor positive 06/03/2017 07/06/2021 Personal history of breast cancer 12/18/2016 04/09/2021 Overview: Added automatically from request for surgery [id number] Permanent atrial fibrillation 12/26/2015 Diverticulitis of large [...] of 04/16/2022) [facility] History of Past illness Narrative* Problem Noted Date Resolved Date Dysuria 07/06/2021 07/08/2021 Obesity, Class I, BMI 30-34.9 01/12/2021 GI bleed 01/12/2021 01/14/2021 Acute blood loss anemia 01/12/2021 01/15/20 21 LLQ pain 09/05/2017 04/09/2021 Overview: Added automatically from request for surgery [id number] Malignant neoplasm of lower- inner quadrant of right breast of female, estrogen receptor positive 06/03/2017 07/06/2021 Personal history of breast cancer 12/18/2016 04/09/2021 Overview: Added automatically from request for surgery [id number] Permanent atrial fibrillation 12/26/2015 Diverticulitis of large [...] of 04/17/2022) [facility] History of Past illness Narrative* Problem Noted Date Resolved Date Dysuria 07/06/2021 07/08/2021 Obesity, Class I, BMI 30-34.9 01/12/2021 GI bleed 01/12/2021 01/14/2021 Acute blood loss anemia 01/12/2021 01/15/20 21 LLQ pain 09/05/2017 04/09/2021 Overview: Added automatically from request for surgery [id number] Malignant neoplasm of lower- inner quadrant of right breast of female, estrogen receptor positive 06/03/2017 07/06/2021 Personal history of breast cancer 12/18/2016 04/09/2021 Overview: Added automatically from request for surgery [id number] Permanent atrial fibrillation 12/26/2015 Diverticulitis of large [...] of 04/22/2022) [facility] History of Past illness Narrative* Problem Noted Date Resolved Date Dysuria 07/06/2021 07/08/2021 Obesity, Class I, BMI 30-34.9 01/12/2021 GI bleed 01/12/2021 01/14/2021 Acute blood loss anemia 01/12/2021 01/15/20 21 LLQ pain 09/05/2017 04/09/2021 Overview: Added automatically from request for surgery [id number] 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 breast of female, estrogen receptor positive 06/03/2017 07/06/2021 Personal history of breast cancer 12/18/2016 04/09/2021 Overview: Added automatically from request for surgery [id number] Permanent atrial fibrillation 12/26/2015 Diverticulitis of large inte angélcia without perforation or abscess without bleeding 11/17/2015 [...] of 05/30/2022) [facility]04-22-2022 History of Past illness Narrative* Problem Noted Date Resolved Date Dysuria 07/06/2021 07/08/2021 Obesity, Class I, BMI 30-34.9 01/12/2021 GI bleed 01/12/2021 01/14/2021 Acute blood loss anemia 01/12/2021 01/15/20 21 LLQ pain 09/05/2017 04/09/2021 Overview: Added automatically from request for surgery [id number] Malignant neoplasm of lower- inner quadrant of right breast of female, estrogen receptor positive 06/03/2017 07/06/2021 Personal history of breast cancer 12/18/2016 04/09/2021 Overview: Added automatically from request for surgery [id number] Permanent atrial fibrillation 12/26/2015 Diverticulitis of large [...] of 06/07/2022) [facility]04-22-2022 History of Past illness Narrative* Problem Noted Date Resolved Date Dysuria 07/06/2021 07/08/2021 Obesity, Class I, BMI 30-34.9 01/12/2021 GI bleed 01/12/2021 01/14/2021 Acute blood loss anemia 01/12/2021 01/15/20 LLQ pain 09/05/2017 04/09/2021 Overview: Added automatically from request for surgery [id number] Malignant neoplasm of lower- inner quadrant of right breast of female, estrogen receptor positive 06/03/2017 07/06/2021 Personal history of breast cancer 12/18/2016 04/09/2021 Overview: Added automatically from request for surgery [id number] Permanent atrial fibrillation 12/26/2015 Diverticulitis of large [...] of 06/11/2022) [facility]-22-2022 History of Past illness Narrative* Problem Noted Date Resolved Date Dysuria 07/06/2021 07/08/2021 Obesity, Class I, BMI 30-34.9 01/12/2021 GI bleed 01/12/2021 01/14/2021 Acute blood loss anemia 01/12/2021 01/15/20 21 LLQ pain 09/05/2017 04/09/2021 Overview: Added automatically from request for surgery [id number] Malignant neoplasm of lower- inner quadrant of right breast of female, estrogen receptor positive 06/03/2017 07/06/2021 Personal history of breast cancer 12/18/2016 04/09/2021 Overview: Added automatically from request for surgery [id number] Permanent atrial fibrillation 12/26/2015 Diverticulitis of large [...] of 06/18/2022) [facility]20[facility] History of Past illness Narrative* Problem Noted Date Resolved Date Dysuria 07/06/2021 07/08/2021 Obesity, Class I, BMI 30-34.9 01/12/2021 GI bleed 01/12/2021 01/14/2021 Acute blood loss anemia 01/12/2021 01/15/20 21 LLQ pain 09/05/2017 04/09/2021 Overview: Added automatically from request for surgery [id number] Malignant neoplasm of lower- inner quadrant of right breast of female, estrogen receptor positive 06/03/2017 07/06/2021 Personal history of breast cancer 12/18/2016 04/09/2021 Overview: Added automatically from request for surgery [id number] Permanent atrial fibrillation 12/26/2015 Diverticulitis of large [...] of 08/29/2022) [facility]20[facility] History of Past illness Narrative* Problem Noted Date Resolved Date Dysuria 07/06/2021 07/08/2021 Obesity, Class I, BMI 30-34.9 01/12/2021 GI bleed 01/12/2021 01/14/2021 Acute blood loss anemia 01/12/2021 01/15/20 LLQ pain 09/05/2017 04/09/2021 Overview: Added automatically from request for surgery [id number] Malignant neoplasm of lower- inner quadrant of right breast of female, estrogen receptor positive 06/03/2017 07/06/2021 Personal history of breast cancer 12/18/2016 04/09/2021 Overview: Added automatically from request for surgery [id number] Permanent atrial fibrillation 12/26/2015 Diverticulitis of large [...] of 09/05/2022) [facility] History of Past illness Narrative* Problem Noted Date Resolved Date Dysuria 07/06/2021 07/08/2021 Obesity, Class I, BMI 30-34.9 01/12/2021 GI bleed 01/12/2021 01/14/2021 Acute blood loss anemia 01/12/2021 01/15/20 LLQ pain 09/05/2017 04/09/2021 Overview: Added automatically from request for surgery [id number] Malignant neoplasm of lower- inner quadrant of right breast of female, estrogen receptor positive 06/03/2017 07/06/2021 Personal history of breast cancer 12/18/2016 04/09/2021 Overview: Added automatically from request for surgery [id number] Permanent atrial fibrillation 12/26/2015 Diverticulitis of large [...] of 09/20/2022) [facility] History of Past illness Narrative* Problem Noted Date Diagnosed Date Resolved Date Dysuria 07/06/2021 07/08/2021 Obesity, Class I, BMI 30-34.9 01/12/2021 04/09/2021 GI bleed 01/12/2021 01/14/2021 Acute blood loss anemia 01/12/2021 10/3 03/2020 LLQ pain 09/05/2017 04/09/2021 Overview: Added automatically from request for surgery [id number] Malignant neoplasm of lower- inner quadrant of right breast of female, estrogen receptor positive 06/03/2017 07/06/2021 Personal history of breast cancer 12/18/2016 04/09/2021 Overview: Added automatically from request for surgery [id number] Permanent atrial fibrillation 12/26/2015 07/01/2018 Diverticulitis of [...] of 09/25/2022) [facility] History of Past illness Narrative* Problem Noted Date Diagnosed Date Resolved Date Dysuria 07/06/2021 07/08/2021 Obesity, Class I, BMI 30-34.9 01/12/2021 04/09/2021 GI bleed 01/12/2021 01/14/2021 Acute blood loss anemia 01/12/202112/17 LLQ pain 09/05/2017 04/09/2021 Overview: Added automatically from request for surgery [id number] Malignant neoplasm of lower- inner quadrant of right breast of female, estrogen receptor positive 06/03/2017 07/06/2021 Personal history of breast cancer 12/18/2016 04/09/2021 Overview: Added automatically from request for surgery [id number] Permanent atrial fibrillation 12/26/2015 07/01/2018 Diverticulitis of [...] of this encounter (statuses as of 10/23/2022) [place] [address]-22-2022 History of Past illness Narrative* Problem Noted Date Diagnosed Date Resolved Date Dysuria 07/06/2021 07/08/2021 Obesity, Class I, BMI 30-34.9 01/12/2021 04/09/2021 GI bleed 01/12/2021 01/14/2021 Acute blood loss anemia 01/12/2021 1003/2020 LLQ pain 09/05/2017 04/09/2021 Overview: Added automatically from request for surgery [id number] Malignant neoplasm of lower- inner quadrant of right breast of female, estrogen receptor positive 06/03/2017 07/06/2021 Personal history of breast cancer 12/18/2016 04/09/2021 Overview: Added automatically from request for surgery [id number] Permanent atrial fibrillation 12/26/2015 07/01/2018 Diverticulitis of [...] of 11/15/2022) [facility] History of Past illness Narrative* Problem Noted Date Diagnosed Date Resolved Date Dysuria 07/06/2021 07/08/2021 Obesity, Class I, BMI 30-34.9 01/12/2021 04/09/2021 GI bleed 01/12/2021 01/14/2021 Acute blood loss anemia 01/12/202112/17 LLQ pain 09/05/2017 04/09/2021 Overview: Added automatically from request for surgery [id number] Malignant neoplasm of lower- inner quadrant of right breast of female, estrogen receptor positive 06/03/2017 07/06/2021 Personal history of breast cancer 12/18/2016 04/09/2021 Overview: Added automatically from request for surgery [id number] Permanent atrial fibrillation 12/26/2015 07/01/2018 Diverticulitis of [...] of 11/26/2022) [facility] History of Past illness Narrative* Problem Noted Date Diagnosed Date Resolved Date Dysuria 07/06/2021 07/08/2021 Obesity, Class I, BMI 30-34.9 01/12/2021 04/09/2021 GI bleed 01/12/2021 01/14/2021 Acute blood loss anemia 01/12/202112/17 LLQ pain 09/05/2017 04/09/2021 Overview: Added automatically from request for surgery [id number] Malignant neoplasm of lower- inner quadrant of right breast of female, estrogen receptor positive 06/03/2017 07/06/2021 Personal history of breast cancer 12/18/2016 04/09/2021 Overview: Added automatically from request for surgery [id number] Permanent atrial fibrillation 12/26/2015 07/01/2018 Diverticulitis of [...] of 11/27/2022) [facility] History of Past illness Narrative* Problem Noted Date Diagnosed Date Resolved Date Dysuria 07/06/2021 07/08/2021 Obesity, Class I, BMI 30-34.9 01/12/2021 04/09/2021 GI bleed 01/12/2021 01/14/2021 Acute blood loss anemia 01/12/202112/17 LLQ pain 09/05/2017 04/09/2021 Overview: Added automatically from request for surgery [id number] Malignant neoplasm of lower- inner quadrant of right breast of female, estrogen receptor positive 06/03/2017 07/06/2021 Personal history of breast cancer 12/18/2016 04/09/2021 Overview: Added automatically from request for surgery [id number] Permanent atrial fibrillation 12/26/2015 07/01/2018 Diverticulitis of [...] of 12/14/2022) [facility]20[facility] History of Past illness Narrative* Problem Noted Date Diagnosed Date Resolved Date Dysuria 07/06/2021 07/08/2021 Obesity, Class I, BMI 30-34.9 01/12/2021 04/09/2021 GI bleed 01/12/2021 01/14/2021 Acute blood loss anemia 01/12/202112/17 LLQ pain 09/05/2017 04/09/2021 Overview: Added automatically from request for surgery [id number] Malignant neoplasm of lower- inner quadrant of right breast of female, estrogen receptor positive (HCC) 06/03/2017 07/06/2021 Personal history of breast cancer 12/18/2016 04/09/2021 Overview: Added automatically from request for surgery [id number] Permanent atrial fibrillation 12/26/2015 07/01/2018 Diverticulitis of [...] of 12/18/2022) [facility]20[facility] History of Past illness Narrative* Problem Noted Date Diagnosed Date Resolved Date Dysuria 07/06/2021 07/08/2021 Obesity, Class I, BMI 30-34.9 01/12/2021 04/09/2021 GI bleed 01/12/2021 01/14/2021 Acute blood loss anemia 01/12/202112/17 LLQ pain 09/05/2017 04/09/2021 Overview: Added automatically from request for surgery [id number] Malignant neoplasm of lower- inner quadrant of right breast of female, estrogen receptor positive (HCC) 06/03/2017 07/06/2021 Personal history of breast cancer 12/18/2016 04/09/2021 Overview: Added automatically from request for surgery [id number] Permanent atrial fibrillation 12/26/2015 07/01/2018 Diverticulitis of [...] of 12/21/2022) [facility]2022 History of Past illness Narrative* Problem Noted Date Diagnosed Date Resolved Date Dysuria 07/06/2021 07/08/2021 Obesity, Class I, BMI 30-34.9 01/12/2021 04/09/2021 GI bleed 01/12/2021 01/14/2021 Acute blood loss anemia 01/12/202112/17 LLQ pain 09/05/2017 04/09/2021 Overview: Added automatically from request for surgery [id number] Malignant neoplasm of lower- inner quadrant of right breast of female, estrogen receptor positive (HCC) 06/03/2017 07/06/2021 Personal history of breast cancer 12/18/2016 04/09/2021 Overview: Added automatically from request for surgery [id number] Permanent atrial fibrillation 12/26/2015 07/01/2018 Diverticulitis of [...] of 01/14/2023) [facility]2022 History of Past illness Narrative* Problem Noted Date Diagnosed Date Resolved Date Dysuria 07/06/2021 07/08/2021 Obesity, Class I, BMI 30-34.9 01/12/2021 04/09/2021 GI bleed 01/12/2021 01/14/2021 Acute blood loss anemia 01/12/202112/17 LLQ pain 09/05/2017 04/09/2021 Overview: Added automatically from request for surgery [id number] Malignant neoplasm of lower- inner quadrant of right breast of female, estrogen receptor positive 06/03/2017 07/06/2021 Personal history of breast cancer 12/18/2016 04/09/2021 Overview: Added automatically from request for surgery [id number] Permanent atrial fibrillation 12/26/2015 07/01/2018 Diverticulitis of [...] of 01/19/2023) [facility] History of Past illness Narrative* Problem Noted Date Diagnosed Date Resolved Date Dysuria 07/06/2021 07/08/2021 Obesity, Class I, BMI 30-34.9 01/12/2021 04/09/2021 GI bleed 01/12/2021 01/14/2021 Acute blood loss anemia 01/12/2021 10/03/2020 LLQ pain 09/05/2017 04/09/2021 Overview: Added automatically from request for surgery [id number] 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, estrogen receptor positive 06/03/2017 07/06/2021 Personal history of breast cancer 12/18/2016 04/09/2021 Overview: Added automatically from request for surgery [id number] Permanent atrial fibrillation 12/26/2015 07/01/2018 Diverticulitis of [...] of 01/19/2023) [facility]2022 History of Past illness Narrative* Problem Noted Date Diagnosed Date Resolved Date Dysuria 07/06/2021 07/08/2021 Obesity, Class I, BMI 30-34.9 01/12/2021 04/09/2021 GI bleed 01/12/2021 01/14/2021 Acute blood loss anemia 01/12/202112/17 LLQ pain 09/05/2017 04/09/2021 Overview: Added automatically from request for surgery [id number] Malignant neoplasm of lower- inner quadrant of right breast of female, estrogen receptor positive (HCC) 06/03/2017 07/06/2021 Personal history of breast cancer 12/18/2016 04/09/2021 Overview: Added automatically from request for surgery [id number] Permanent atrial fibrillation 12/26/2015 07/01/2018 Diverticulitis of [...] of 02/12/2023) [facility]-22-2022 History of Past illness Narrative* Problem Noted Date Diagnosed Date Resolved Date Dysuria 07/06/2021 07/08/2021 Obesity, Class I, BMI 30-34.9 01/12/2021 04/09/2021 GI bleed 01/12/2021 01/14/2021 Acute blood loss anemia 01/12/202112/17 LLQ pain 09/05/2017 04/09/2021 Overview: Added automatically from request for surgery [id number] Malignant neoplasm of lower- inner quadrant of right breast of female, estrogen receptor positive (HCC) 06/03/2017 07/06/2021 Personal history of breast cancer 12/18/2016 04/09/2021 Overview: Added automatically from request for surgery [id number] Permanent atrial fibrillation 12/26/2015 07/01/2018 Diverticulitis of [...] Dr. Merino on recommendation of Dr. Angeline anth Last Assessment & Plan: She is on asacol for the past few months, it was started by Dr. Merino on recommendation of Dr. Angeline nath documented as of this encounter (statuses as of 04/25/2023) [facility]04-22[facility]2022 History of Past illness Narrative* Problem Noted Date Diagnosed Date Resolved Date Dysuria 07/06/2021 07/08/2021 Obesity, Class I, BMI 30-34.9 01/12/2021 04/09/2021 GI bleed 01/12/2021 01/14/2021 Acute blood loss anemia 01/12/202112/17 LLQ pain 09/05/2017 04/09/2021 Overview: Added automatically from request for surgery [id number] Malignant neoplasm of lower- inner quadrant of right breast of female, estrogen receptor positive (HCC) 06/03/2017 07/06/2021 Personal history of breast cancer 12/18/2016 04/09/2021 Overview: Added automatically from request for surgery [id number] Permanent atrial fibrillation 12/26/2015 07/01/2018 Diverticulitis of [...] of 04/30/2023) [facility]20[facility] History of Past illness Narrative* Problem Noted Date Diagnosed Date Resolved Date Dysuria 07/06/2021 07/08/2021 Obesity, Class I, BMI 30-34.9 01/12/2021 04/09/2021 GI bleed 01/12/2021 01/14/2021 Acute blood loss anemia 01/12/2021 10/03/2020 LLQ pain 09/05/2017 04/09/2021 Overview: Added automatically from request for surgery [id number] Malignant neoplasm of lower- inner quadrant of right breast of female, estrogen receptor positive 06/03/2017 07/06/2021 Personal history of breast cancer 12/18/2016 04/09/2021 Overview: Added automatically from request for surgery [id number] Permanent atrial fibrillation 12/26/2015 07/01/2018 Diverticulitis of [...] of 05/19/2023) [facility] History of Past illness Narrative* Problem Noted Date Diagnosed Date Resolved Date Dysuria 07/06/2021 07/08/2021 Obesity, Class I, BMI 30-34.9 01/12/2021 04/09/2021 GI bleed 01/12/2021 01/14/2021 Acute blood loss anemia 01/12/202112/17 LLQ pain 09/05/2017 04/09/2021 Overview: Added automatically from request for surgery [id number] Malignant neoplasm of lower- inner quadrant of right breast of female, estrogen receptor positive 06/03/2017 07/06/2021 Personal history of breast cancer 12/18/2016 04/09/2021 Overview: Added automatically from request for surgery [id number] Permanent atrial fibrillation 12/26/2015 07/01/2018 Diverticulitis of [...] of 06/07/2023) [facility]20[facility] History of Past illness Narrative* Problem Noted Date Diagnosed Date Resolved Date Dysuria 07/06/2021 07/08/2021 Obesity, Class I, BMI 30-34.9 01/12/2021 04/09/2021 GI bleed 01/12/2021 01/14/2021 Acute blood loss anemia 01/12/2021 10/3 03/2020 LLQ pain 09/05/2017 04/09/2021 Overview: Added automatically from request for surgery [id number] Malignant neoplasm of lower- inner quadrant of right breast of female, estrogen receptor positive 06/03/2017 07/06/2021 Personal history of breast cancer 12/18/2016 04/09/2021 Overview: Added automatically from request for surgery [id number] Permanent atrial fibrillation 12/26/2015 07/01/2018 Diverticulitis of [...] of 06/10/2023) [facility] History of Past illness Narrative* Problem Noted Date Diagnosed Date Resolved Date Dysuria 07/06/2021 07/08/2021 Obesity, Class I, BMI 30-34.9 01/12/2021 04/09/2021 GI bleed 01/12/2021 01/14/2021 Acute blood loss anemia 01/12/202112/17 LLQ pain 09/05/2017 04/09/2021 Overview: Added automatically from request for surgery [id number] Malignant neoplasm of lower- inner quadrant of right breast of female, estrogen receptor positive 06/03/2017 07/06/2021 Personal history of breast cancer 12/18/2016 04/09/2021 Overview: Added automatically from request for surgery [id number] Permanent atrial fibrillation 12/26/2015 07/01/2018 Diverticulitis of [...] of 06/17/2023) [facility] History of Past illness Narrative* Problem Noted Date Diagnosed Date Resolved Date Dysuria 07/06/2021 07/08/2021 Obesity, Class I, BMI 30-34.9 01/12/2021 04/09/2021 GI bleed 01/12/2021 01/14/2021 Acute blood loss anemia 01/12/202112/17 LLQ pain 09/05/2017 04/09/2021 Overview: Added automatically from request for surgery [id number] Malignant neoplasm of lower- inner quadrant of right breast of female, estrogen receptor positive 06/03/2017 07/06/2021 Personal history of breast cancer 12/18/2016 04/09/2021 Overview: Added automatically from request for surgery [id number] Permanent atrial fibrillation 12/26/2015 07/01/2018 Diverticulitis of [...] of 06/18/2023) [facility] History of Past illness Narrative* Problem Noted Date Diagnosed Date Resolved Date Dysuria 07/06/2021 07/08/2021 Obesity, Class I, BMI 30-34.9 01/12/2021 04/09/2021 GI bleed 01/12/2021 01/14/2021 Acute blood loss anemia 01/12/202112/17 LLQ pain 09/05/2017 04/09/2021 Overview: Added automatically from request for surgery [id number] Malignant neoplasm of lower- inner quadrant of right breast of female, estrogen receptor positive 06/03/2017 07/06/2021 Personal history of breast cancer 12/18/2016 04/09/2021 Overview: Added automatically from request for surgery [id number] Permanent atrial fibrillation 12/26/2015 07/01/2018 Diverticulitis of [...] of 06/19/2023) [facility] History of Past illness Narrative* Problem Noted Date Diagnosed Date Resolved Date Dysuria 07/06/2021 07/08/2021 Obesity, Class I, BMI 30-34.9 01/12/2021 04/09/2021 GI bleed 01/12/2021 01/14/2021 Acute blood loss anemia 01/12/202112/17 LLQ pain 09/05/2017 04/09/2021 Overview: Added automatically from request for surgery [id number] Malignant neoplasm of lower- inner quadrant of right breast of female, estrogen receptor positive 06/03/2017 07/06/2021 Personal history of breast cancer 12/18/2016 04/09/2021 Overview: Added automatically from request for surgery [id number] Permanent atrial fibrillation 12/26/2015 07/01/2018 Diverticulitis of [...] of 07/01/2023) [facility] History of Past illness Narrative* Problem Noted Date Diagnosed Date Resolved Date Dysuria 07/06/2021 07/08/2021 Obesity, Class I, BMI 30-34.9 01/12/2021 04/09/2021 GI bleed 01/12/2021 01/14/2021 Acute blood loss anemia 01/12/202112/17 LLQ pain 09/05/2017 04/09/2021 Overview: Added automatically from request for surgery [id number] Malignant neoplasm of lower- inner quadrant of right breast of female, estrogen receptor positive 06/03/2017 07/06/2021 Personal history of breast cancer 12/18/2016 04/09/2021 Overview: Added automatically from request for surgery [id number] Permanent atrial fibrillation 12/26/2015 07/01/2018 Diverticulitis of [...] of 07/02/2023) [facility] History of Past illness Narrative* Problem Noted Date Diagnosed Date Resolved Date Dysuria 07/06/2021 07/08/2021 Obesity, Class I, BMI 30-34.9 01/12/2021 04/09/2021 GI bleed 01/12/2021 01/14/2021 Acute blood loss anemia 01/12/202112/17 LLQ pain 09/05/2017 04/09/2021 Overview: Added automatically from request for surgery [id number] Malignant neoplasm of lower- inner quadrant of right breast of female, estrogen receptor positive 06/03/2017 07/06/2021 Personal history of breast cancer 12/18/2016 04/09/2021 Overview: Added automatically from request for surgery [id number] Permanent atrial fibrillation 12/26/2015 07/01/2018 Diverticulitis of [...] of 07/04/2023) [facility]20[facility] Miscellaneous Notes* Telephone Encounter - Coreen Concepcion MD - 07/06/2021 12:10 PM EDT Had spoken to Dr. Turk regarding her plan- ERCP with prophylactic sphincterotomy and referral for cholecystectomy at [facility]. Unfortunately she will likely become obstructed regardless of ERCP because of this 3.3 cm stone. Called patient's daughter (patient did not answer), patient is currently in Emergency department with worsening pain, fevers. Will likely be admitted, high concern for biliary obstruction. [facility] History of Present illness Narrative* Johnny Turk [...] had black tarry stools and presented to [facility] for post polypectomy bleed. At the time [...] opinions from the recent CT scan at [facility] versus the prior scan, I elected to obtain an ultrasound and repeat laboratory studies. The CT scan from [facility] was supposed to [...] 99 74 - 99 mg/dL Final The [place] [employer] (ADA) provides guidance for cutoff [...] Standards of Medical Care in Diabetes 2016, [place] [employer]. Diabetes Care. 2016.39(Suppl 1). BUN [...] addended to a previously final verified report. [place]% 07/05/2021 14.0 % Final This is an addended report. These results have been addended to a previously final verified report. Abs [place] 07/05/2021 1.22 (A) <0.87 k/uL Final This [...] Referred by noted on Friday to her booth cleaner. She question whether the patient truly had [...] mouth once daily. Taking 1000 glucosamine/msm/chondroitin A (EEMTNKYYCTS-AZXJOZ-GTO ORAL) Take 1 capsule by mouth once [...] Age of Onset other ( age 60 [place]) Mother hypertension and TB other (pancreatic cancer) [...] C (98.6 F), height 167.6 cm (5' 6"), meeqxd54.8 kg (176 lb), SpO2 100 %. Body [...] to have her CT scan images from [facility] loaded in the [facility] system and compare this to the [...] [facility] Miscellaneous Notes* Telephone Encounter - Bernie Aguilar LPN - 07/05/2021 4:38 PM EDT Eloisa notified, verbalized understanding. Eloisa states that patient will be admitted into [facility] tomorrow. Just an FYI * Telephone Encounter - Ambar Negrete APRN.[employer]IC [employer]DRESS [employer] OPERATOR - 07/05/2021 3:35 PM EDT PCP [facility] [...] [facility]. [facility] [...] term for pain? Pt uses [facility] in [place]. Please call daughter Eloisa to notify her. Eloisa also asking for message to go to Dr Turk since pt was seen by him today. Aliyah Oliva LPN documented in this [facility] History of Present illness Narrative* Alma Ta APRN.CHASSIS INSPECTOR - 07/03/2021 12:15 PM EDT CC: Patient [...] mass on liver PMR (polymyalgia rheumatica) (FORM[facility]LY [facility]) 2012 Pure hypercholesterolemia Snoring Squamous cell cancer [...] mouth once daily. Taking 1000 glucosamine/msm/chondroitin A ([id number]-KHGOCZ-DSX ORAL) Take 1 capsule by mouth once [...] Age of Onset other ( age 60 [place]) Mother hypertension and TB other (pancreatic cancer) [...] abdominal tenderness DATA REVIEWED: Outside chart from [facility] ER reviewed. ASSESSMENT/PLAN: 1. Dysuria - ICD9: 788.1, ICD10: R30.0 (primary diagnosis) Chronic. Urine cultures negative for UTI and no improvement with antibiotics. 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 Alma Ta APRN.INGE documented [facility] Miscellaneous Notes* Telephone Encounter - Madonna Dickson LPN - 07/03/2021 11:01 AM EDT Called [facility] medical records to fax ER visit from 07/02/21 . * Telephone Encounter - Madonna Dickson LPN - 07/03/2021 8:59 AM EDT Patient called wants to talk to Dr Turk, was in [facility] ER last night 07/02/21, [place] wanted to do surgery on gallbladder, patient declined, states wants to f/up with Dr Turk before proceeding. Please advise. [phone] documented in this encounter[facility] Miscellaneous Notes* Telephone Encounter - Corinna Arenas [facility] - 06/22/2021 10:16 AM EDT [facility] Clinic Anticoagulation Episode Summary Anticoagulation Care Providers Provider Role Specialty Phone number Galina Iraheta MD Responsible Internal Medicine [phone] Christian Landrum is a 85 year old [...] * Unknown Zestril [Lisinopril] Indication for Warfarin: skilled nursing (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 anticoagulants Paroxysmal atrial fibrillation (hcc) Anticoagulation Episode Summary Current INR goal: 2.0-3.0 Assessment: INR result of 2.1 is therapeutic Plan: Sent Yapmo message Advised patient to continue current weekly dose Next home INR check scheduled on 07/06/2021 Corinna Arenas RPh Clinical Pharmacist, Pharmacy Anticoagulation Clinic Pharmacy Anticoagulation Clinic Pager: [phone] . documented in this encounter[facility] Miscellaneous Notes* Telephone Encounter - Jerrica Rothman RPh - 06/20/2021 4:55 PM EDT Patient was due to test INR today will continue to monitor for results. Jerrica Rothman PharmD documented in this encounterSelect [facility] [place]-2022 Miscellaneous Notes* Telephone Encounter - Page Palmer [...] in this encounterSelect [facility] [place]-22-[facility]22 History of Present illness Narrative* Abydamián Bruner DO - 06/05/2021 11:00 AM EDT This office note has been dictated. Aby Bruner DO documented in this encounterSelect [facility] [place]22 History of Present illness Narrative* RT Sahra(R) [...] in this encounterSelect [facility] [place]11-30-2021 Miscellaneous Notes* Telephone Encounter - Galina Solorzano [...] an upper/lower GI showed she had a "bleeding stomach" which resulted in anemic. Reports she has 5 days left of pills. Asking Dr. Iraheta if she is suppose to keep taking them? Are you able to send [facility]? Please advise patient. documented in this encounterSelect [facility]10-31-2021 NoteHNO ID: [id number] Author: Johnny Turk MD Service: General Surgery [...] (Src) 98.2 (Oral) Resp 16 Ht 5' 6" (1.68m) Wt 179 lb 7.3 oz (81.4kg) [...] VTE Prophylaxis/Anticoagulants 01/12/211999 activity - mobilize patient (co,az) VTE Prophylaxis: VTE prophylaxis appropriate SIGNATURE: Johnny Turk MD PATIENT NAME: Christian Landrum DATE: January 14, 2021 TIME: 12:07 [id number] NoteHNO ID: [id number] Author: Wendy Bonilla DO Service: Hospital Medicine Author Type: Physician Type: Progress Notes Filed: 01/13/2021 4:03 PM Note Text: DEPARTMENT OF HOSPITAL MEDICINE PROGRESS NOTE SERVICE DATE: 01/13/2021 SERVICE TIME: 3:50 PM Hospital Medicine/Primary Attending: Wendy Bonilla DO NIGHT AND WEEKEND COVERAGE: LOWES COVERAGE: Days: [phone], please page attending physician. Nights: [phone], please page [place] [facility] Night coverage pager [phone]. Subjective INTERVAL HPI: feels well today. No [...] (Src) 98.4 (Oral) Resp 16 Ht 5' 6" (1.68m) Wt 179 lb 7.3 oz (81.4kg) [...] fatty liver in the past. 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 Noted positive Hepatitis B core ab I ordered the rest of the hepatitis serologies her Machine I Trimmer recommended and she will need to f/u with GI outpatient Endometrial thickening on ultrasound Obtain transvaginal US If thickened endometrium then she needs to see (more content not included)... [id number] NoteHNO ID: [id number] Author: ALICIA Ramires Service: Radiology Author Type: Clinical Demonstrator Knitting Type: Progress Notes Filed: 01/12/2021 4:19 PM [...] Landrum DATE: January 12, 2021 TIME: 4:[address]29-2021 History of Past illness Narrative* Problem Noted Date Resolved Date Obesity, Class I, BMI 30-34.9 01/12/2021 GI bleed 01/12/2021 01/14/2021 Acute blood loss anemia 01/12/2021 01/15/20 LLQ pain 09/05/2017 04/09/2021 Overview: Added automatically from request for surgery [id number] Personal history of breast cancer 12/18/2016 04/09/2021 Overview: Added automatically from request for surgery [id number] Permanent atrial fibrillation 12/26/2015 Diverticulitis of large [...] of 06/05/2021) [facility] History of Past illness Narrative* Problem Noted Date Resolved Date Obesity, Class I, BMI 30-34.9 01/12/2021 GI bleed 01/12/2021 01/14/2021 Acute blood loss anemia 01/12/2021 01/15/20 21 LLQ pain 09/05/2017 04/09/2021 Overview: Added automatically from request for surgery [id number] Personal history of breast cancer 12/18/2016 04/09/2021 Overview: Added automatically from request for surgery [id number] Permanent atrial fibrillation 12/26/2015 Diverticulitis of large [...] of 06/19/2021) [facility] History of Past illness Narrative* Problem Noted Date Resolved Date Obesity, Class I, BMI 30-34.9 01/12/2021 GI bleed 01/12/2021 01/14/2021 Acute blood loss anemia 01/12/2021 01/15/20 21 LLQ pain 09/05/2017 04/09/2021 Overview: Added automatically from request for surgery [id number] Personal history of breast cancer 12/18/2016 04/09/2021 Overview: Added automatically from request for surgery [id number] Permanent atrial fibrillation 12/26/2015 Diverticulitis of large [...] of 06/22/2021) [facility] History of Past illness Narrative* Problem Noted Date Resolved Date Obesity, Class I, BMI 30-34.9 01/12/2021 GI bleed 01/12/2021 01/14/2021 Acute blood loss anemia 01/12/2021 01/15/20 21 LLQ pain 09/05/2017 04/09/2021 Overview: Added automatically from request for surgery [id number] Personal history of breast cancer 12/18/2016 04/09/2021 Overview: Added automatically from request for surgery [id number] Permanent atrial fibrillation 12/26/2015 Diverticulitis of large [...] of 06/26/2021) [facility] History of Past illness Narrative* Problem Noted Date Resolved Date Obesity, Class I, BMI 30-34.9 01/12/2021 GI bleed 01/12/2021 01/14/2021 Acute blood loss anemia 01/12/2021 01/15/20 21 LLQ pain 09/05/2017 04/09/2021 Overview: Added automatically from request for surgery [id number] Personal history of breast cancer 12/18/2016 04/09/2021 Overview: Added automatically from request for surgery [id number] Permanent atrial fibrillation 12/26/2015 Diverticulitis of large [...] of 07/03/2021) [facility] History of Past illness Narrative* Problem Noted Date Resolved Date Obesity, Class I, BMI 30-34.9 01/12/2021 GI bleed 01/12/2021 01/14/2021 Acute blood loss anemia 01/12/2021 01/15/20 21 LLQ pain 09/05/2017 04/09/2021 Overview: Added automatically from request for surgery [id number] Personal history of breast cancer 12/18/2016 04/09/2021 Overview: Added automatically from request for surgery [id number] Permanent atrial fibrillation 12/26/2015 Diverticulitis of large [...] of 07/05/2021) [facility] History of Past illness Narrative* Problem Noted Date Resolved Date Obesity, Class I, BMI 30-34.9 01/12/2021 GI bleed 01/12/2021 01/14/2021 Acute blood loss anemia 01/12/2021 01/15/20 LLQ pain 09/05/2017 04/09/2021 Overview: Added automatically from request for surgery [id number] Personal history of breast cancer 12/18/2016 04/09/2021 Overview: Added automatically from request for surgery [id number] Permanent atrial fibrillation 12/26/2015 Diverticulitis of large inte angélica without perforation or abscess without bleeding 11/17/2015 04/09/2021 Lymphedema of arm 10/16/2015 04/09/2021 Malignant neoplasm of lower- inner quadrant of right female breast 08/04/2015 04/09/2021 UTI (urinary tract infection) 07/27/2015 10 / Overview: Estrogen is contraindicated for her breast [...] of 07/05/2021) [facility] History of Past illness Narrative* Problem Noted Date Resolved Date Obesity, Class I, BMI 30-34.9 01/12/2021 GI bleed 01/12/2021 01/14/2021 Acute blood loss anemia 01/12/2021 01/15/20 LLQ pain 09/05/2017 04/09/2021 Overview: Added automatically from request for surgery [id number] Personal history of breast cancer 12/18/2016 04/09/2021 Overview: Added automatically from request for surgery [id number] Permanent atrial fibrillation 12/26/2015 Diverticulitis of large [...] of 07/06/2021) [facility] NoteHNO ID: [id number] Author: ANIKET Martin Service: Radiology Author Type: Clinical Demonstrator Knitting Type: Progress Notes Filed: 01/10/2021 10:31 AM [...] to prevent falls during this visit? Yellow "Falls Risk Wristband" Applied, Offered Assistance with Transfers/Clothing and Increased [...] POST EXAM PIV STATUS: Discontinued PROCEDURE TYPE: DE Stress: 12.1mCi [id number] was administered IV for Rest Imaging at 9:05 by ANIKET Martin. 31.2 mCi [id number] was administered IV for Stress Imaging at 10:02 by ANIKET Martin. PATIENT DISCHARGED TO: Ambulatory patient, left [place] department area. A Diagnostic radioactive procedure has taken place, with no further precautions necessary other than routine body substance precautions. More information regarding radiation safety can be found using this link: [email or web address] SIGNATURE: ANIKET Martin PATIENT NAME: Christian Landrum DATE: January 10, 2021 TIME: 10:30 AM PAGER/CONTACT #:[id number] History of Present illness Narrative* Gladis Beltran, RT(R) - 11/27/2020 4:20 PM EDT Radiology [...] in this encounterSelect [facility]02-19-2021 History of Present illness Narrative* Gladis Beltran)Karri [...] 05, 2020 2:54 PM [facility]* Diagnosis Venous (peripheral) insufficiency- Primary Unspecified venous (peripheral) insufficiency documented in this encounter [facility] note* Diagnosis termite helper (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 anticoagulants Long-term (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 anticoagulants Paroxysmal atrial fibrillation (HCC) Atrial fibrillation documented in this encounter [facility] note* Diagnosis Malignant neoplasm of lower-inner quadrant of right breast of female, estrogen receptor positive (HCC)- Primary documented in this encounter [facility] noteNo assessment information availableWMcKitrick Hospital Work Phone: Evaluation note* Diagnosis Dysuria- Primary Right upper quadrant abdominal pain Abdominal pain, right upper quadrant Chronic anticoagulation Long-term (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 anticoagulants documented in this encounter [facility]* Diagnosis Polymyalgia rheumatica (HCC)- Primary Polymyalgia rheumatica documented [facility]* Diagnosis Calculus of gallbladder without cholecystitis without obstruction- Primary Calculus of gallbladder without mention of cholecystitis or obstruction Secondary biliary cirrhosis (HCC) Biliary cirrhosis [facility]* Diagnosis Malignant neoplasm of lower-inner quadrant of right breast of female, estrogen receptor positive (HCC)- Primary documented in this encounter [facility]* Diagnosis skilled nursing (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 anticoagulants Long-term (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 anticoagulants Paroxysmal atrial fibrillation (HCC) Atrial fibrillation documented in this encounter [facility]* Diagnosis History of recent hospitalization- Primary Personal history of unspecified disease Dysuria Recurrent UTI Urinary tract infection, site not specified Cirrhosis of liver with ascites, unspecified hepatic cirrhosis type (HCC) Biliary colic Calculus of gallbladder without mention of cholecystitis or obstruction documented [facility]* Diagnosis Dysuria- Primary documented in this encounter [facility]* Diagnosis termite helper (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 anticoagulants Long-term (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 anticoagulants Paroxysmal atrial fibrillation (HCC) Atrial fibrillation [facility]* Diagnosis Acute cystitis without hematuria- Primary Acute cystitis PMB (postmenopausal bleeding) Postmenopausal bleeding Endometrial thickening on ultrasound [facility]* Diagnosis termite helper (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 anticoagulants Long-term (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 anticoagulants Paroxysmal atrial fibrillation (HCC) Atrial fibrillation [facility]* Diagnosis Onset Date Resolution Status Endometrial thickening on ultrasound acute PMB (postmenopausal bleeding) acute History of diverticulitis of colon chronic [facility] Work Phone: Evaluation note* Diagnosis PMB (postmenopausal bleeding)- Primary Postmenopausal bleeding Endometrial thickening on ultrasound [facility]* Diagnosis Old laceration of cervix uteri- Primary Old laceration of cervix Abnormal uterine bleeding (AUB) documented in this encounter [facility]* Diagnosis Recurrent UTI- Primary Urinary tract infection, site not specified Mixed stress and urge urinary incontinence Mixed incontinence urge and stress (male)(female) Old laceration of cervix uteri Old laceration of cervix documented in this encounter [facility]* Diagnosis skilled nursing (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 anticoagulants Long-term (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 anticoagulants Paroxysmal atrial fibrillation (HCC) Atrial fibrillation documented [facility] this encounter [facility]* Diagnosis Paroxysmal atrial fibrillation (HCC)- Primary Atrial fibrillation Rheumatic mitral regurgitation Rheumatic mitral insufficiency Essential hypertension Unspecified essential hypertension Mixed hyperlipidemia Hyperglycemia Other abnormal glucose PAF (paroxysmal atrial fibrillation) (HCC) Atrial fibrillation Shortness of breath SVT (supraventricular tachycardia) (HCC) Other specified cardiac dysrhythmias documented in this encounter [facility]* Diagnosis Old laceration of cervix uteri- Primary Old laceration of cervix documented in this encounter [facility]* Diagnosis Malignant neoplasm of lower-inner quadrant of right breast of female, estrogen receptor positive (HCC)- Primary documented in this encounter [facility]* Diagnosis Malignant neoplasm of lower-inner quadrant of right breast of female, estrogen receptor positive (HCC)- Primary documented in this encounter [facility]* Diagnosis Recurrent UTI- Primary Urinary tract infection, site not specified History of ESBL E. coli infection Personal history of other infectious and parasitic disease Mixed stress and urge urinary incontinence Mixed incontinence urge and stress (male)(female) documented in this encounter [facility]* Diagnosis Recurrent UTI Urinary tract infection, site not specified History of ESBL E. coli infection Personal history of other infectious and parasitic disease documented [facility] this encounter [facility]* Diagnosis Chronic anticoagulation- Primary Long-term (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 anticoagulants documented in this encounter [facility]* Diagnosis Malignant neoplasm of lower-inner quadrant of right breast of female, estrogen receptor positive (HCC)- Primary Chronic anticoagulation Long-term (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 anticoagulants documented in this encounter [facility]* Diagnosis termite helper (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 anticoagulants Long-term (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 anticoagulants Paroxysmal atrial fibrillation (HCC) Atrial fibrillation documented in this encounter [facility]* Diagnosis Onset Date Resolution Status History of diverticulitis of colon chronic Endometrial thickening on ultrasound resolved PMB (postmenopausal bleeding) resolved [facility] Work Phone: Evaluation note* Diagnosis BRBPR (bright red blood per rectum)- Primary Hemorrhage of rectum and anus termite helper (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 anticoagulants Long-term (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 anticoagulants Paroxysmal atrial fibrillation (HCC) Atrial fibrillation [facility] Diagnosis termite helper (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 anticoagulants Long-term (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 [...] of right knee [facility]* Diagnosis Anemia, unspecified type- Primary [...] receptor positive (HCC) [facility] Diagnosis 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 Other specified intestinal malabsorption [facility] Diagnosis Chest pain, unspecified type- Primary Paroxysmal atrial fibrillation (HCC) Atrial fibrillation Rheumatic mitral regurgitation Rheumatic mitral insufficiency Essential hypertension Unspecified essential hypertension Mixed hyperlipidemia Obstructive sleep apnea syndrome Obstructive sleep apnea (adult) (pediatric) Shortness of breath documented in this encounter [facility]* Diagnosis Personal history of breast cancer- Primary Personal history of malignant neoplasm of breast Rib pain on right side Chest pain, unspecified [facility] Diagnosis Personal history of breast cancer- Primary Personal history of malignant neoplasm of breast [facility]* Diagnosis Personal history of breast cancer- Primary Personal history of malignant neoplasm of breast 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 blood loss (chronic) [facility]* Diagnosis Paroxysmal atrial fibrillation (HCC)- Primary Atrial fibrillation Rheumatic mitral regurgitation Rheumatic mitral insufficiency Essential hypertension Unspecified essential hypertension Mixed hyperlipidemia Obstructive sleep apnea syndrome Obstructive sleep apnea (adult) (pediatric) Shortness of breath PAF (paroxysmal atrial fibrillation) (HCC) Atrial fibrillation SVT (supraventricular tachycardia) (HCC) Other specified cardiac dysrhythmias [facility]* Diagnosis Encounter for care related to vascular access port- Primary Fitting and adjustment of vascular catheter [facility]* Diagnosis Pain in right wrist- Primary Pain in joint, forearm Primary osteoarthritis of both knees Primary localized osteoarthrosis, lower leg CMC arthritis Unspecified arthropathy, hand [facility]* Diagnosis Essential hypertension- Primary Unspecified [...] blood loss (chronic) [facility]* Diagnosis Malignant neoplasm of lower-inner quadrant of right breast of female, estrogen receptor positive (HCC)- Primary 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 blood loss (chronic) [facility]* Diagnosis On prednisone therapy Screening for osteoporosis Special screening for osteoporosis [facility]* Diagnosis Primary osteoarthritis of both knees- Primary Primary localized osteoarthrosis, lower leg [facility]* Diagnosis Rheumatic mitral regurgitation- Primary Rheumatic mitral insufficiency Paroxysmal atrial fibrillation (HCC) Atrial fibrillation Essential hypertension Unspecified essential hypertension Obstructive sleep apnea syndrome Obstructive sleep apnea (adult) (pediatric) Mixed hyperlipidemia Shortness of breath SVT (supraventricular tachycardia) ([facility]) Other specified cardiac dysrhythmias [facility]* Diagnosis Chronic pain of left [...] osteoarthrosis, lower leg [facility]* Diagnosis Rheumatoid arthritis involving multiple sites, unspecified whether rheumatoid factor present (HCC)- Primary Osteopenia of multiple sites Medication monitoring encounter Encounter for therapeutic drug monitoring Long-term use of Plaquenil Encounter for long-term (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 other medications Platelets decreased (HCC) Thrombocytopenia, unspecified documented in this encounter [facility]* Diagnosis Recurrent UTI- Primary Urinary tract infection, site not specified Vaginal atrophy Postmenopausal atrophic vaginitis documented in this encounter [facility]* Diagnosis 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, unspecified laterality (HCC)- Primary [facility]* Diagnosis Rheumatoid arthritis involving multiple sites with positive rheumatoid factor (HCC)- Primary Iron deficiency Iron deficiency anemia, unspecified [facility]* Diagnosis Malignant neoplasm of lower-inner quadrant of right breast of female, estrogen receptor positive (HCC)- Primary 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 blood loss (chronic) [facility] Diagnosis Rheumatoid arthritis involving multiple sites with positive rheumatoid factor (HCC)- Primary [facility] Diagnosis Rheumatoid arthritis involving multiple sites with positive rheumatoid factor (HCC)- Primary [facility] Diagnosis Rheumatoid arthritis of multiple sites [...] therapeutic drug monitoring documented in this encounter [facility] note* Diagnosis Rheumatoid arthritis of multiple sites [...] deficiency anemia, unspecified documented in this encounter [facility] note* Diagnosis Rheumatoid arthritis of multiple sites [...] [facility] Diagnosis Rheumatoid arthritis of [...] [facility] Diagnosis Rheumatoid arthritis of [...] Senile osteoporosis- Primary [facility] Diagnosis Rheumatoid arthritis of [...] cardiac dysrhythmias Cough documented in [facility] Diagnosis Rheumatoid arthritis of [...] unspecified fever cause documented in this [facility] Diagnosis Rheumatoid arthritis of [...] Cough documented in this [facility] Diagnosis Rheumatoid arthritis of [...] [facility] Diagnosis Rheumatoid arthritis of multiple sites [...] blood loss (chronic) documented in this [facility] Diagnosis Rheumatoid arthritis of [...] this [facility] Diagnosis Rheumatoid arthritis of [...] specified intestinal malabsorption [facility] Diagnosis Rheumatoid arthritis of [...] therapeutic drug monitoring documented in this encounter [facility] note* Diagnosis Rheumatoid arthritis of multiple sites [...] [facility] Diagnosis Rheumatoid arthritis of multiple sites [...] this [facility] Diagnosis Rheumatoid arthritis of [...] this [facility] Diagnosis Rheumatoid arthritis of [...] On prednisone therapy documented in this encounter [facility] note* Diagnosis Rheumatoid arthritis of multiple sites [...] (HCC) Senile osteoporosis documented in this encounter [facility] note* Diagnosis Rheumatoid arthritis of multiple sites [...] On prednisone therapy documented [facility] Diagnosis Rheumatoid arthritis of [...] rheumatoid factor present (HCC)- Primary Senile osteoporosis Personal history of breast cancer Personal history of malignant neoplasm of breast 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 blood loss (chronic) [facility] Diagnosis Rheumatoid arthritis of multiple sites [...] (supraventricular tachycardia) (HCC) Other specified cardiac dysrhythmias Personal history of breast cancer- Primary Personal history of malignant neoplasm of breast 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 blood loss (chronic) [facility] Additional Instructions Call and follow-up [...] either Friday or before you restart it. [facility] Work Phone: [facility]: [facility] Work Phone: [facility] instructionsW[facility] Work Phone: [facility] instructions[facility] Work Phone: Hospital Discharge instructions Additional Instructions You are going to stop your Coumadin for 2 days. You are going to take the Aygestin 5 mg twice a day for 5 days. Please return here for worsening bleeding, dizziness, chest pain, any other concerns. Please follow-up with Dr. [facility] Work Phone: Hospital Discharge instructions Additional Instructions Please follow-up with your PCP. Please use Tylenol for any fevers.[facility] Work Phone: Hospital Discharge instructions Additional Instructions You were given 1 unit of blood. Please follow-up with your primary care doctor for further monitoring of your blood levels.[facility] Work Phone: Hospital Discharge instructionsAdditional Instructions The CT scan of your head and cervical spine revealed no signs of acute trauma. X-rays of your right elbow and pelvis also showed no sign of fracture. Your urine does show changes consistent with UTI and therefore take the antibiotic as directed to help resolve this. Return to the ER should you have any further concernsWMcKitrick Hospital Work Phone: Reason for referral (narrative)* [...] 12 LDS W/I&R Cecilio Ibarra DO [address] [address] [facility] [address] [place] [address] Referral ID Status Reason Start Date Expiration Date V isits Requested Visits Authorized [id number] Closed Auto-Generate d Referral 09/05/2021 09/05/2022 1 1 [facility] for referral (narrative)* Diagnostic Procedure Only (Routine) - Closed Specialty Diagnoses / Procedures Referred By Contac t Referred To Contact XR IMAGING Diagnoses Personal history of breast cancer Rib pain on right side Procedures XR RIBS 2V AP/OBL RIGHT RADEX RIBS UNILATERAL 2 VIEWS Cassidy Arreola APRN.CHASSIS INSPECTOR [address] [place] [address] Xr Imaging Referral ID Status Reason Start Date Expiration Date V isits Requested Visits Authorized [id number] Closed Auto-Generate d Referral 06/05/2022 07/05/2023 1 1 [facility] for referral (narrative)* Diagnostic Procedure Only (Routine) - Closed Specialty Diagnoses / Procedures Referred By Contac t Referred To Contact XR IMAGING Diagnoses Pain in right wrist Procedures XR WRIST GENERAL 3V PA/LAT/OBL RIGHT RADEX WRIST COMPLETE MINIMUM 3 VIEWS Stella Preciado PA-C [address] [place] [address] [place] [address] Referral ID Status Reason Start Date Expiration Date V isits Requested Visits Authorized [id number] Closed Auto-Generate d Referral 11/25/2022 12/25/2023 1 1 T [facility] for referral (narrative)* Diagnostic Procedure Only (Routine) - Closed Specialty Diagnoses / Procedures Referred By Contac t Referred To Contact XR IMAGING Diagnoses Personal history of breast cancer Rib pain on right side Procedures XR RIBS 2V AP/OBL RIGHT RADEX RIBS UNILATERAL 2 VIEWS Cassidy Arreola APRN.CHASSIS INSPECTOR [address] [place] [address] [place] [address] Referral ID Status Reason Start Date Expiration Date V isits Requested Visits Authorized [id number] Closed Auto-Generate d Referral 06/05/2022 07/05/2023 1 1 [facility] for referral (narrative)* Diagnostic Procedure Only (Routine) - Closed Specialty Diagnoses / Procedures Referred By Contac t Referred To Contact XR IMAGING Diagnoses Pain in right wrist Procedures XR WRIST GENERAL 3V PA/LAT/OBL RIGHT RADEX WRIST COMPLETE MINIMUM 3 VIEWS Stella Preciado PA-C [address] [place] [address] [place] [address] Referral ID Status Reason Start Date Expiration Date V isits Requested Visits Authorized [id number] Closed Auto-Generate d Referral 11/25/2022 12/25/2023 1 1 [facility] for referral (narrative)* Diagnostic Procedure Only (Routine) - Pending Review Specialty Diagnoses / Procedures Referred By Contac t Referred To Contact XR IMAGING Diagnoses Primary osteoarthritis of both knees Procedures XR KNEE GENERAL 4V AP BOTH/PA BOTH/LAT/MERC BILATERAL RADIOLOGIC EXAM KNEE COMPLETE 4/MORE VIEWS Stella Preciado PA-C [address] [place] [address] [place] [address] Referral ID Status Reason Start Date Expiration Date Visits Requested Visits Authorized [id number] Pending Review Auto-Generat ed Referral 06/10/2023 07/09/2024 1 1 [facility] for referral (narrative)No reason for referral information availableWMcKitrick Hospital Work Phone: Reason for referral (narrative)* Clinic-Administered Medication (Routine) - Authorized Specialty Diagnoses / Procedures Referred By Contac t Referred To Contact [facility] Thalia Monterroso MD [address] [place] [address] Phone: tel: fax: [facility] [address] [place] [address] Referral ID Status Reason Start Date Expiration Date Visits Requested Visits Authorized [id number] Authorized Auto-Generat ed Referral 08/27/2024 11/25/2024 2 2 [facility] for visit Narrative* Diagnostic Procedure Only (Routine) - Closed Specialty Diagnoses / Procedures Referred By Contac t Referred To Contact XR IMAGING Diagnoses Personal history of breast cancer Rib pain on right side Procedures XR RIBS 2V AP/OBL RIGHT RADEX RIBS UNILATERAL 2 VIEWS Cassidy Arreola APRN.CHASSIS INSPECTOR [address] [place] [address] [place] [address] Referral ID Status Reason Start Date Expiration Date V isits Requested Visits Authorized [id number] Closed Auto-Generate d Referral 06/05/2022 07/05/2023 1 1 [facility] for visit Narrative* Diagnostic Procedure Only (Routine) - Closed Specialty Diagnoses / Procedures Referred By Contac t Referred To Contact XR IMAGING Diagnoses Pain in right wrist Procedures XR WRIST GENERAL 3V PA/LAT/OBL RIGHT RADEX WRIST COMPLETE MINIMUM 3 VIEWS VelawrenceviStella trejo, PA-C [address] [place] [address] [place] [address] Referral ID Status Reason Start Date Expiration Date V isits Requested Visits Authorized [id number] Closed Auto-Generate d Referral 11/25/2022 12/25/2023 1 1 [facility] for visit Narrative* Diagnostic Procedure Only (Routine) - Closed Specialty Diagnoses / Procedures Referred By Contac t Referred To Contact XR IMAGING Diagnoses Primary osteoarthritis of both knees Procedures XR KNEE GENERAL 4V AP BOTH/PA BOTH/LAT/MERC BILATERAL RADIOLOGIC EXAM KNEE COMPLETE 4/MORE VIEWS VetovitzSonua, PA-C [address] [place] [address] [place] [address] Referral ID Status Reason Start Date Expiration Date V isits Requested Visits Authorized [id number] Closed Auto-Generate d Referral 06/10/2023 07/09/2024 1 1 [facility] for visit Narrative* Diagnostic Procedure Only (Routine) - Closed Specialty Diagnoses / Procedures Referred By Contac t Referred To Contact XR IMAGING Diagnoses Bilateral hip pain Procedures XR HIP BILATERAL 5V PEL/AP/LAT EACH HIP RADEX HIPS BILATERAL WITH PELVIS MINIMUM 5 VIEWS Cassidy Arreola APRN.CHASSIS INSPECTOR [address] [place] [address] [place] [address] Referral ID Status Reason Start Date Expiration Date V isits Requested Visits Authorized [id number] Closed Auto-Generate d Referral 02/24/2024 03/25/2025 1 1 [facility] Summary Purpose Family History No Family History Records FoundNo Family History Records FoundNo Family History Records FoundNo Family History Records FoundNo Family History Records Found Advance Directives No Advanced Directives Records FoundDocuments on File Type Date Recorded Patient Door Attendant Expl anation Advance Directive(s) 01/12/2021 1:54 PM [...] No July 03, 2021 12:32am Power of Mathematics Technician No July 03 12:32am Documents on File Type Date Recorded Patient Door Attendant Expl anation Advance Directive(s) 07/06/2021 12:56 PM [...] Maker Relationship: Health Ca re Power of Mathematics Technician Agent Latest Code Status on File Code Status Date Activated Date Inactivated Comments DNR-CCA 07/06/2021 6:27 PM 2021 5:16 PM Documents on File Type Date Recorded Patient Door Attendant Expl anation Advance Directive(s) 08/12/2021 4:09 PM [...] August 20, 2021 8 :39am Power of Mathematics Technician Yes August 20, 2021 8:39am Advance Directive Response Recorded Date/ Time Name of Medical Power of Mathematics Technician DAUGHTER August 20, 2021 8:39am Living Will Yes August 26, 2021 1:00pm Power of Mathematics Technician Yes August 26 1:00pm Documents on File Type Date Recorded Patient Door Attendant Expl anation Advance Directive(s) 08/12/2021 4:09 PM [...] Date/ Time Name of Medical Power of Mathematics Technician DAUGHTER August 20, 2021 8:39am Name of Medical Power of Mathematics Technician eloisa August 26, 2021 1:00pm Living Will No October 18, 2021 11:00am Power of Mathematics Technician No October 18 11:00am Documents on File Type Date Recorded Patient Door Attendant Expl anation Advance Directive(s) 09/28/2020 12:50 PM Advance Directive(s) 12/28/2008 Advance Directive Response Recorded Date/ Time Living Will No December 28 12:16pm Power of Mathematics Technician No December 28, 2021 12:16pm Advance Directive Response Recorded Date/ Time Living Will No December 28 11:16am Power of Mathematics Technician No December 28, 2021 11:16am Documents on File Type Date Recorded Patient Door Attendant Expl anation Advance Directive(s) 09/28/2020 12:50 PM [...] Decision Maker Relationship: Health Care Power of Mathematics Technician Agent Latest Code Status on File Code [...] Decision Maker Relationship: Health Care Power of Mathematics Technician Agent Advance Directive Response Recorded Date/ Time Living Will No April 07 1:01pm Power of Mathematics Technician No April 07, 2023 1:01pm Advance Directive Response Recorded Date/ Time Living Will No April 07 2:01pm Power of Mathematics Technician No April 07, 2023 2:01pm Date Activated Date Inactivated Comments 08/12/2021 8:33 PM 08/13/2021 5:51 PM Question Answer Comments DNR Order Discussed With: Patient Date Activated Date Inactivated Comments 07/06/2021 6:27 PM 2021 5:16 PM Question Answer Comments DNR Order Discussed With: PatientSurrogate Decis ion Maker Surrogate Decision Maker Relationship: Health Ca re Power of Mathematics Technician Agent Date Activated Date Inactivated Comments 08/12/2021 8:33 PM 08/13/2021 5:51 PM Question Answer Comments DNR Order Discussed With: Patient Date Activated Date Inactivated Comments 07/06/2021 6:27 PM 2021 5:16 PM Question Answer Comments DNR Order Discussed With: PatientSfiorella Cantor ion Maker Surrogate Decision Maker Relationship: Health Ca re Power of Mathematics Technician Agent Advance Directive Response Recorded Date/ Time Do you have a Healthcare Power of Mathematics Technician? Yes September 14, 2024 5:43am Name of Medical Power of Mathematics Technician leanedil--sai hter September 14, 2024 5:43am Chief Complaint and Reason for Visit Chief [...] LONGTERM LABWORK LONGTERM LAB WORK 2 UNITS [facility] Chief Complaint LONGTERM LAB WOR K LABWORK LONGTERM LABWORK LONGTERM LABWORK NEW SYMPTOMS/CONCERN LONGTERM LABWORK NEW SYMPTOMS/CONCERN LONGTERM LABWORK ABNORMAL LABS NEW SYMPTOMS/CONCERN LONGTERM LAB WORK LONGTERM LABWORK LONGTERM LABWORK LONGTERM LABWORK LONGTERM LAB WORK 2 UNITS [facility] Chief Complaint LABWORK LONGTERM LABWORK LONGTERM LABWORK NEW SYMPTOMS/CONCERN LONGTERM LABWORK NEW SYMPTOMS/CONCERN LONGTERM LABWORK ABNORMAL LABS NEW SYMPTOMS/CONCERN LONGTERM LAB WORK LONGTERM LABWORK LONGTERM LABWORK LONGTERM LABWORK LONGTERM LABWORK LONGTERM LAB WORK 2 UNITS [facility] NEW SYMPTOMS/CONCERNS Chief Complaint LABWORK LONGTERM LABWORK LONGTERM LABWORK NEW SYMPTOMS/CONCERN LONGTERM LABWORK NEW SYMPTOMS/CONCERN LONGTERM LABWORK ABNORMAL LABS NEW SYMPTOMS/CONCERN LONGTERM LAB WORK LONGTERM LABWORK LONGTERM LABWORK LONGTERM LABWORK LONGTERM LABWORK LONGTERM LAB WORK 2 UNITS [facility] LONGTERM LABWORK NEW SYMPTOMS/CONCERNS NEW SYMPTOMS/CONCERN Chief Complaint LONGTERM LABWORK ABNORMAL LABS NEW SYMPTOMS/CONCERN LONGTERM LAB WORK LONGTERM LABWORK LONGTERM LABWORK LONGTERM LABWORK LONGTERM LABWORK LONGTERM LAB WORK 2 UNITS [facility] LONGTERM LABWORK NEW SYMPTOMS/CONCERNS NEW SYMPTOMS/CONCERN LABWORK Chief Complaint LONGTERM LABWORK LONGTERM LAB WORK 2 UNITS [facility] LONGTERM LABWORK NEW SYMPTOMS/CONCERNS [...] 2:51p m Reason for Visit Admit Date fallAugust 13, [...] bowel habits September 07, 2024 2 :24pm Chief Complaint Admit Date LABWORK May 31, 2024 5:0 0am LABWORK [...] LOOSE STOOLS September 07, 2024 2:2 4pm fall September 14, 2024 5:40a m Chief Complaint Admit Date LABWORK May 31, 2024 5:0 0am LABWORK [...] LOOSE STOOLS September 07, 2024 2:2 4pm fall September 14, 2024 5:40a m LEFT ULNA September 24, 2024 1:58 pm RM 3 September 24, 2024 2:12 pm Chief Complaint Admit Date LABWORK June 16, 2024 5:00 am LABWORK [...] Room 4 August 13, 2024 2:32p m New Concern August 16, 2024 4:40p m LEFT ULNA August 18, 2024 2:33p m Room 4 August 18, 2024 2:51p m LABWORK August 30, 2024 5:00 am LEFT ULNA September 03, 2024 1:55 pm CAST ROOM September 03, 2024 2:12 pm CHRONIC LOOSE STOOLS September 07, 2024 2:2 4pm fall September 14, 2024 5:40a m LEFT ULNA September 24, 2024 1:58 pm RM 3 September 24, 2024 2:12 pm Reason for Visit Admit Date Fall August 13, 2024 2:06p m Fx distal ulna-closed August 13, 2024 2:0 6pm Fall August 18, 2024 2:33p m Fx distal ulna-closed August 18, 2024 2:3 3pm Fall September 03, 2024 1:55 pm Fx distal ulna-closed September 03, 2024 1: 55pm Change in bowel habits September 07, 2024 2 :24pm Fall September 24, 2024 1:58 pm Fx distal ulna-closed September 24, 2024 1: 58pm Chief Complaint Admit Date LABWORK July 05, 2024 5:0 0am NEW CONCERN July 06, 2024 2:2 6pm LABWORK July 07, 2024 5:0 0am LABWORK July 08, 2024 12: 00pm LONGTERM LAB WORK August 02, 2024 4:0 0am UTI, DIARRHEA, BLADDER FISTULA August 06, 2024 2:19pm NEW CONCERN August 12, 2024 12:58 pm LEFT ULNA August 13, 2024 2:06p m Room 4 August 13, 2024 2:32p m New Concern August 16, 2024 4:40p m LEFT ULNA August 18, 2024 2:33p m Room 4 August 18, 2024 2:51p m LABWORK August 30, 2024 5:00 am LEFT ULNA September 03, 2024 1:55 pm CAST ROOM September 03, 2024 2:12 pm CHRONIC LOOSE STOOLS September 07, 2024 2:2 4pm fall September 14, 2024 5:40a m LEFT ULNA September 24, 2024 1:58 pm RM 3 September 24, 2024 2:12 pm LABWORK October 04, 2024 5:00 am HAND THERAPY, SPLINT. RX HERE October 13, 2024 2:58pm LEFT ULNA October 22, 2024 1:5 3pm Room 4 October 22, 2024 2:0 4pm Chief Complaint Admit Date LABWORK July 05, 2024 5:0 0am NEW CONCERN July 06, 2024 2:2 6pm LABWORK July 07, 2024 5:0 0am LABWORK July 08, 2024 12: 00pm LONGTERM LAB WORK August 02, 2024 4:0 0am UTI, DIARRHEA, BLADDER FISTULA August 06, 2024 2:19pm NEW CONCERN August 12, 2024 12:58 pm LEFT ULNA August 13, 2024 2:06p m Room 4 August 13, 2024 2:32p m New Concern August 16, 2024 4:40p m LEFT ULNA August 18, 2024 2:33p m Room August 18, 2024 2:51p m LABWORK August 30, 2024 5:00 am LEFT ULNA September 03, 2024 1:55 pm CAST ROOM September 03, 2024 2:12 pm CHRONIC LOOSE STOOLS September 07, 2024 2:2 4pm fall September 14, 2024 5:40a m New Concern September 20, 2024 6:19p m LEFT ULNA September 24, 2024 1:58 pm RM 3 September 24, 2024 2:12 pm LABWORK October 04, 2024 5:00 am HAND THERAPY, SPLINT. RX HERE October 13, 2024 2:58pm LEFT ULNA October 22, 2024 1:5 3pm Room 4 October 22, 2024 2:0 4pm Reason for Visit Admit Date Fall August 13, 2024 2:06p m Fx distal ulna-closed August 13, 2024 2:0 6pm Fall August 18, 2024 2:33p m Fx distal ulna-closed August 18, 2024 2:3 3pm Fall September 03, 2024 1:55 pm Fx distal ulna-closed September 03, 2024 1: 55pm Change in bowel habits September 07, 2024 2 :24pm Fall September 24, 2024 1:58 pm Fx distal ulna-closed September 24, 2024 1: 58pm Fx distal ulna-closed October 22, 2024 1 :53pm Chief Complaint Admit Date LABWORK July 05, 2024 5:0 0am NEW CONCERN July 06, 2024 2:2 6pm LABWORK July 07, 2024 5:0 0am LABWORK July 08, 2024 12: 00pm LONGTERM LAB WORK August 02, 2024 4:0 0am UTI, DIARRHEA, BLADDER FISTULA August 06, 2024 2:19pm NEW CONCERN August 12, 2024 12:58 pm LEFT ULNA August 13, 2024 2:06p m Room 4 August 13, 2024 2:32p m New Concern August 16, 2024 4:40p m LEFT ULNA August 18, 2024 2:33p m Room 4 August 18, 2024 2:51p m LABWORK August 30, 2024 5:00 am LEFT ULNA September 03, 2024 1:55 pm CAST ROOM September 03, 2024 2:12 pm CHRONIC LOOSE STOOLS September 07, 2024 2:2 4pm fall September 14, 2024 5:40a m New Concern September 20, 2024 6:19p m Follow-up Exam September 22, 2024 6:11p m LEFT ULNA September 24, 2024 1:58 pm RM 3 September 24, 2024 2:12 pm LABWORK October 04, 2024 5:00 am HAND THERAPY, SPLINT. RX HERE October 13, 2024 2:58pm LEFT ULNA October 22, 2024 1:5 3pm Room 4 October 22, 2024 2:0 4pm Health Concerns Infection Onset Date Last Indicated [...] Procedures CONSULT TO URO GYNECOLOGY OFFICE/OUTPATIENT [facility] 60-74 MINUTES Jayde Hebert MD [address] [place] [address] Referral ID Status Reason Start Date Expiration Date Visits Requested Visits Authorized [id number] Authorized PCP Requested Referral Auto-Generate d Referral 08/30/2021 11/28/2021 1 1 Specialty Diagnoses / Procedures Referred By Contac t Referred To Contact Infectious Diseases Diagnoses Recurrent UTI History of ESBL E. coli infection Procedures CONSULT TO INFECTIOUS DISEASES OFFICE/OUTPATIENT [facility] 60-74 MINUTES Basilia Hernández MD [address] [address] Referral ID Status Reason Start Date Expiration Date Visits Requested Visits Authorized [id number] Authorized PCP Requested Referral 09/26/2021 09/26/2022 1 1 Specialty Diagnoses / Procedures Referred By Contac t Referred To Contact CT IMAGING Diagnoses Iron deficiency anemia due to chronic blood loss Bilateral hip pain Generalized abdominal pain Abdominal bloating Personal history of breast cancer Occult blood in stools Procedures CT CHEST W IVCON DIAGNOSTIC COMPUTED TOMOGRAPHY THORAX W/CONTRAST Cassidy Arreola APRN.CHASSIS INSPECTOR [address] [place] [address] [place] [address] Referral ID Status Reason Start Date Expiration Date Visits Requested Visits Authorized [id number] Authorized Auto-Generat ed Referral 03/25/2025 1 1 Specialty Diagnoses / Procedures Referred By Contac t Referred To Contact CT IMAGING Diagnoses Iron deficiency anemia due to chronic blood loss Bilateral hip pain Generalized abdominal pain Abdominal bloating Personal history of breast cancer Occult blood in stools Procedures CT ABD/PEL W IVCON CT ABD & PELVIS W/CONTRAST Cassidy Arreola APRN.CHASSIS INSPECTOR [address] [place] [address] [place] [address] Referral ID Status Reason Start Date Expiration Date Visits Requested Visits Authorized [id number] Authorized Auto-Generat ed Referral 4 03/25/2025 1 1 Specialty Diagnoses / Procedures Referred By Michael t Referred To Contact XR IMAGING Diagnoses Bilateral hip pain Procedures XR HIP BILATERAL 5V PEL/AP/LAT EACH HIP RADEX HIPS BILATERAL WITH PELVIS MINIMUM 5 VIEWS Cassidy Arreola APRN.CHASSIS INSPECTOR [address] [place] [address] [place] [address] Referral ID Status Reason Start Date Expiration Date Visits Requested Visits Authorized [id number] New Request Auto-Generat ed Referral 4 03/25/2025 [...] section and content) DATE CREATED AUTHOR 10/21/2019 [facility] DATE CREATED AUTHOR AUTHOR'S ORGANIZ ATION 08/28/2021 [facility] DATE CREATED AUTHOR AUTHOR'S ORGANIZ ATION 01/07/2022 [facility] DATE CREATED AUTHOR AUTHOR'S ORGANIZ ATION 09/25/2024 [facility] DATE CREATED AUTHOR AUTHOR'S ORGANIZ ATION 11/01/2024 [facility] [facility] Comments (unrecognize d section and content) In the event this informatio n is protected by the Federal Confidentiality of Alcohol and Drug Abuse Patient Records regulations: The Federal rules restrict any use of the information to criminally investigate or prosecute any alcohol or drug abuse patient.[facility] the event this information is protected by the Federal Confidentiality of Alcohol and Drug Abuse Patient Records regulations: The Federal rules restrict any use of the information to criminally investigate or prosecute any alcohol or drug abuse patient.[facility]onIn the event this information is protected by the Federal Confidentiality of Alcohol and Drug Abuse Patient Records regulations: The Federal rules restrict any use of the information to criminally investigate or prosecute any alcohol or drug abuse patient.[facility]onIn the event this information is protected by the Federal Confidentiality of Alcohol and Drug Abuse Patient Records regulations: The Federal rules restrict any use of the information to criminally investigate or prosecute any alcohol or drug abuse patient.[facility]onIn the event this information is protected by the Federal Confidentiality of Alcohol and Drug Abuse Patient Records regulations: The Federal rules restrict any use of the information to criminally investigate or prosecute any alcohol or drug abuse patient.[facility]onIn the event this information is protected by the Federal Confidentiality of Alcohol and Drug Abuse Patient Records regulations: The Federal rules restrict any use of the information to criminally investigate or prosecute any alcohol or drug abuse patient.[facility]onIn the event this information is protected by the Federal Confidentiality of Alcohol and Drug Abuse Patient Records regulations: The Federal rules restrict any use of the information to criminally investigate or prosecute any alcohol or drug abuse patient.[facility]onIn the event this information is protected by the Federal Confidentiality of Alcohol and Drug Abuse Patient Records regulations: The Federal rules restrict any use of the information to criminally investigate or prosecute any alcohol or drug abuse patient.[facility]onIn the event this information is protected by the Federal Confidentiality of Alcohol and Drug Abuse Patient Records regulations: The Federal rules restrict any use of the information to criminally investigate or prosecute any alcohol or drug abuse patient.[facility]onIn the event this information is protected by the Federal Confidentiality of Alcohol and Drug Abuse Patient Records regulations: The Federal rules restrict any use of the information to criminally investigate or prosecute any alcohol or drug abuse patient.[facility]onIn the event this information is protected by the Federal Confidentiality of Alcohol and Drug Abuse Patient Records regulations: The Federal rules restrict any use of the information to criminally investigate or prosecute any alcohol or drug abuse patient.[facility]onIn the event this information is protected by the Federal Confidentiality of Alcohol and Drug Abuse Patient Records regulations: The Federal rules restrict any use of the information to criminally investigate or prosecute any alcohol or drug abuse patient.[facility]onIn the event this information is protected by the Federal Confidentiality of Alcohol and Drug Abuse Patient Records regulations: The Federal rules restrict any use of the information to criminally investigate or prosecute any alcohol or drug abuse patient.[facility]onIn the event this information is protected by the Federal Confidentiality of Alcohol and Drug Abuse Patient Records regulations: The Federal rules restrict any use of the information to criminally investigate or prosecute any alcohol or drug abuse patient.[facility]onIn the event this information is protected by the Federal Confidentiality of Alcohol and Drug Abuse Patient Records regulations: The Federal rules restrict any use of the information to criminally investigate or prosecute any alcohol or drug abuse patient.[facility]onIn the event this information is protected by the Federal Confidentiality of Alcohol and Drug Abuse Patient Records regulations: The Federal rules restrict any use of the information to criminally investigate or prosecute any alcohol or drug abuse patient.[facility]onIn the event this information is protected by the Federal Confidentiality of Alcohol and Drug Abuse Patient Records regulations: The Federal rules restrict any use of the information to criminally investigate or prosecute any alcohol or drug abuse patient.[facility]onIn the event this information is protected by the Federal Confidentiality of Alcohol and Drug Abuse Patient Records regulations: The Federal rules restrict any use of the information to criminally investigate or prosecute any alcohol or drug abuse patient.[facility]onIn the event this information is protected by the Federal Confidentiality of Alcohol and Drug Abuse Patient Records regulations: The Federal rules restrict any use of the information to criminally investigate or prosecute any alcohol or drug abuse patient.[facility]onIn the event this information is protected by the Federal Confidentiality of Alcohol and Drug Abuse Patient Records regulations: The Federal rules restrict any use of the information to criminally investigate or prosecute any alcohol or drug abuse patient.[facility]onIn the event this information is protected by the Federal Confidentiality of Alcohol and Drug Abuse Patient Records regulations: The Federal rules restrict any use of the information to criminally investigate or prosecute any alcohol or drug abuse patient.[facility]onIn the event this information is protected by the Federal Confidentiality of Alcohol and Drug Abuse Patient Records regulations: The Federal rules restrict any use of the information to criminally investigate or prosecute any alcohol or drug abuse patient.[facility]onIn the event this information is protected by the Federal Confidentiality of Alcohol and Drug Abuse Patient Records regulations: The Federal rules restrict any use of the information to criminally investigate or prosecute any alcohol or drug abuse patient.[facility]onIn the event this information is protected by the Federal Confidentiality of Alcohol and Drug Abuse Patient Records regulations: The Federal rules restrict any use of the information to criminally investigate or prosecute any alcohol or drug abuse patient.[facility]onIn the event this information is protected by the Federal Confidentiality of Alcohol and Drug Abuse Patient Records regulations: The Federal rules restrict any use of the information to criminally investigate or prosecute any alcohol or drug abuse patient.[facility]onIn the event this information is protected by the Federal Confidentiality of Alcohol and Drug Abuse Patient Records regulations: The Federal rules restrict any use of the information to criminally investigate or prosecute any alcohol or drug abuse patient.[facility]onIn the event this information is protected by the Federal Confidentiality of Alcohol and Drug Abuse Patient Records regulations: The Federal rules restrict any use of the information to criminally investigate or prosecute any alcohol or drug abuse patient.[facility]onIn the event this information is protected by the Federal Confidentiality of Alcohol and Drug Abuse Patient Records regulations: The Federal rules restrict any use of the information to criminally investigate or prosecute any alcohol or drug abuse patient.[facility]onIn the event this information is protected by the Federal Confidentiality of Alcohol and Drug Abuse Patient Records regulations: The Federal rules restrict any use of the information to criminally investigate or prosecute any alcohol or drug abuse patient.[facility]onIn the event this information is protected by the Federal Confidentiality of Alcohol and Drug Abuse Patient Records regulations: The Federal rules restrict any use of the information to criminally investigate or prosecute any alcohol or drug abuse patient.[facility]onIn the event this information is protected by the Federal Confidentiality of Alcohol and Drug Abuse Patient Records regulations: The Federal rules restrict any use of the information to criminally investigate or prosecute any alcohol or drug abuse patient.[facility]onIn the event this information is protected by the Federal Confidentiality of Alcohol and Drug Abuse Patient Records regulations: The Federal rules restrict any use of the information to criminally investigate or prosecute any alcohol or drug abuse patient.[facility]onIn the event this information is protected by the Federal Confidentiality of Alcohol and Drug Abuse Patient Records regulations: The Federal rules restrict any use of the information to criminally investigate or prosecute any alcohol or drug abuse patient.[facility]onIn the event this information is protected by the Federal Confidentiality of Alcohol and Drug Abuse Patient Records regulations: The Federal rules restrict any use of the information to criminally investigate or prosecute any alcohol or drug abuse patient.[facility]onIn the event this information is protected by the Federal Confidentiality of Alcohol and Drug Abuse Patient Records regulations: The Federal rules restrict any use of the information to criminally investigate or prosecute any alcohol or drug abuse patient.[facility]onIn the event this information is protected by the Federal Confidentiality of Alcohol and Drug Abuse Patient Records regulations: The Federal rules restrict any use of the information to criminally investigate or prosecute any alcohol or drug abuse patient.[facility]onIn the event this information is protected by the Federal Confidentiality of Alcohol and Drug Abuse Patient Records regulations: The Federal rules restrict any use of the information to criminally investigate or prosecute any alcohol or drug abuse patient.[facility]onIn the event this information is protected by the Federal Confidentiality of Alcohol and Drug Abuse Patient Records regulations: The Federal rules restrict any use of the information to criminally investigate or prosecute any alcohol or drug abuse patient.[facility]onIn the event this information is protected by the Federal Confidentiality of Alcohol and Drug Abuse Patient Records regulations: The Federal rules restrict any use of the information to criminally investigate or prosecute any alcohol or drug abuse patient.[facility]onIn the event this information is protected by the Federal Confidentiality of Alcohol and Drug Abuse Patient Records regulations: The Federal rules restrict any use of the information to criminally investigate or prosecute any alcohol or drug abuse patient.[facility]onIn the event this information is protected by the Federal Confidentiality of Alcohol and Drug Abuse Patient Records regulations: The Federal rules restrict any use of the information to criminally investigate or prosecute any alcohol or drug abuse patient.[facility]onIn the event this information is protected by the Federal Confidentiality of Alcohol and Drug Abuse Patient Records regulations: The Federal rules restrict any use of the information to criminally investigate or prosecute any alcohol or drug abuse patient.[facility]onIn the event this information is protected by the Federal Confidentiality of Alcohol and Drug Abuse Patient Records regulations: The Federal rules restrict any use of the information to criminally investigate or prosecute any alcohol or drug abuse patient.[facility]onIn the event this information is protected by the Federal Confidentiality of Alcohol and Drug Abuse Patient Records regulations: The Federal rules restrict any use of the information to criminally investigate or prosecute any alcohol or drug abuse patient.[facility]onIn the event this information is protected by the Federal Confidentiality of Alcohol and Drug Abuse Patient Records regulations: The Federal rules restrict any use of the information to criminally investigate or prosecute any alcohol or drug abuse patient.[facility]onIn the event this information is protected by the Federal Confidentiality of Alcohol and Drug Abuse Patient Records regulations: The Federal rules restrict any use of the information to criminally investigate or prosecute any alcohol or drug abuse patient.[facility]onIn the event this information is protected by the Federal Confidentiality of Alcohol and Drug Abuse Patient Records regulations: The Federal rules restrict any use of the information to criminally investigate or prosecute any alcohol or drug abuse patient.[facility]onIn the event this information is protected by the Federal Confidentiality of Alcohol and Drug Abuse Patient Records regulations: The Federal rules restrict any use of the information to criminally investigate or prosecute any alcohol or drug abuse patient.[facility]onIn the event this information is protected by the Federal Confidentiality of Alcohol and Drug Abuse Patient Records regulations: The Federal rules restrict any use of the information to criminally investigate or prosecute any alcohol or drug abuse patient.[facility]onIn the event this information is protected by the Federal Confidentiality of Alcohol and Drug Abuse Patient Records regulations: The Federal rules restrict any use of the information to criminally investigate or prosecute any alcohol or drug abuse patient.[facility]onIn the event this information is protected by the Federal Confidentiality of Alcohol and Drug Abuse Patient Records regulations: The Federal rules restrict any use of the information to criminally investigate or prosecute any alcohol or drug abuse patient.[facility]onIn the event this information is protected by the Federal Confidentiality of Alcohol and Drug Abuse Patient Records regulations: The Federal rules restrict any use of the information to criminally investigate or prosecute any alcohol or drug abuse patient.[facility]onIn the event this information is protected by the Federal Confidentiality of Alcohol and Drug Abuse Patient Records regulations: The Federal rules restrict any use of the information to criminally investigate or prosecute any alcohol or drug abuse patient.[facility]onIn the event this information is protected by the Federal Confidentiality of Alcohol and Drug Abuse Patient Records regulations: The Federal rules restrict any use of the information to criminally investigate or prosecute any alcohol or drug abuse patient.[facility]onIn the event this information is protected by the Federal Confidentiality of Alcohol and Drug Abuse Patient Records regulations: The Federal rules restrict any use of the information to criminally investigate or prosecute any alcohol or drug abuse patient.[facility]onIn the event this information is protected by the Federal Confidentiality of Alcohol and Drug Abuse Patient Records regulations: The Federal rules restrict any use of the information to criminally investigate or prosecute any alcohol or drug abuse patient.[facility]onIn the event this information is protected by the Federal Confidentiality of Alcohol and Drug Abuse Patient Records regulations: The Federal rules restrict any use of the information to criminally investigate or prosecute any alcohol or drug abuse patient.[facility]onIn the event this information is protected by the Federal Confidentiality of Alcohol and Drug Abuse Patient Records regulations: The Federal rules restrict any use of the information to criminally investigate or prosecute any alcohol or drug abuse patient.[facility]onIn the event this information is protected by the Federal Confidentiality of Alcohol and Drug Abuse Patient Records regulations: The Federal rules restrict any use of the information to criminally investigate or prosecute any alcohol or drug abuse patient.[facility]onIn the event this information is protected by the Federal Confidentiality of Alcohol and Drug Abuse Patient Records regulations: The Federal rules restrict any use of the information to criminally investigate or prosecute any alcohol or drug abuse patient.[facility]onIn the event this information is protected by the Federal Confidentiality of Alcohol and Drug Abuse Patient Records regulations: The Federal rules restrict any use of the information to criminally investigate or prosecute any alcohol or drug abuse patient.[facility]onIn the event this information is protected by the Federal Confidentiality of Alcohol and Drug Abuse Patient Records regulations: The Federal rules restrict any use of the information to criminally investigate or prosecute any alcohol or drug abuse patient.[facility]onIn the event this information is protected by the Federal Confidentiality of Alcohol and Drug Abuse Patient Records regulations: The Federal rules restrict any use of the information to criminally investigate or prosecute any alcohol or drug abuse patient.[facility]onIn the event this information is protected by the Federal Confidentiality of Alcohol and Drug Abuse Patient Records regulations: The Federal rules restrict any use of the information to criminally investigate or prosecute any alcohol or drug abuse patient.[facility]onIn the event this information is protected by the Federal Confidentiality of Alcohol and Drug Abuse Patient Records regulations: The Federal rules restrict any use of the information to criminally investigate or prosecute any alcohol or drug abuse patient.[facility]onIn the event this information is protected by the Federal Confidentiality of Alcohol and Drug Abuse Patient Records regulations: The Federal rules restrict any use of the information to criminally investigate or prosecute any alcohol or drug abuse patient.[facility]onIn the event this information is protected by the Federal Confidentiality of Alcohol and Drug Abuse Patient Records regulations: The Federal rules restrict any use of the information to criminally investigate or prosecute any alcohol or drug abuse patient.[facility]onIn the event this information is protected by the Federal Confidentiality of Alcohol and Drug Abuse Patient Records regulations: The Federal rules restrict any use of the information to criminally investigate or prosecute any alcohol or drug abuse patient.[facility]onIn the event this information is protected by the Federal Confidentiality of Alcohol and Drug Abuse Patient Records regulations: The Federal rules restrict any use of the information to criminally investigate or prosecute any alcohol or drug abuse patient.[facility]onIn the event this information is protected by the Federal Confidentiality of Alcohol and Drug Abuse Patient Records regulations: The Federal rules restrict any use of the information to criminally investigate or prosecute any alcohol or drug abuse patient.[facility]onIn the event this information is protected by the Federal Confidentiality of Alcohol and Drug Abuse Patient Records regulations: The Federal rules restrict any use of the information to criminally investigate or prosecute any alcohol or drug abuse patient.[facility]onIn the event this information is protected by the Federal Confidentiality of Alcohol and Drug Abuse Patient Records regulations: The Federal rules restrict any use of the information to criminally investigate or prosecute any alcohol or drug abuse patient.[facility]onIn the event this information is protected by the Federal Confidentiality of Alcohol and Drug Abuse Patient Records regulations: The Federal rules restrict any use of the information to criminally investigate or prosecute any alcohol or drug abuse patient.[facility]onIn the event this information is protected by the Federal Confidentiality of Alcohol and Drug Abuse Patient Records regulations: The Federal rules restrict any use of the information to criminally investigate or prosecute any alcohol or drug abuse patient.[facility]onIn the event this information is protected by the Federal Confidentiality of Alcohol and Drug Abuse Patient Records regulations: The Federal rules restrict any use of the information to criminally investigate or prosecute any alcohol or drug abuse patient.[facility]onIn the event this information is protected by the Federal Confidentiality of Alcohol and Drug Abuse Patient Records regulations: The Federal rules restrict any use of the information to criminally investigate or prosecute any alcohol or drug abuse patient.[facility]onIn the event this information is protected by the Federal Confidentiality of Alcohol and Drug Abuse Patient Records regulations: The Federal rules restrict any use of the information to criminally investigate or prosecute any alcohol or drug abuse patient.[facility]onIn the event this information is protected by the Federal Confidentiality of Alcohol and Drug Abuse Patient Records regulations: The Federal rules restrict any use of the information to criminally investigate or prosecute any alcohol or drug abuse patient.[facility]onIn the event this information is protected by the Federal Confidentiality of Alcohol and Drug Abuse Patient Records regulations: The Federal rules restrict any use of the information to criminally investigate or prosecute any alcohol or drug abuse patient.[facility]onIn the event this information is protected by the Federal Confidentiality of Alcohol and Drug Abuse Patient Records regulations: The Federal rules restrict any use of the information to criminally investigate or prosecute any alcohol or drug abuse patient.[facility]onIn the event this information is protected by the Federal Confidentiality of Alcohol and Drug Abuse Patient Records regulations: The Federal rules restrict any use of the information to criminally investigate or prosecute any alcohol or drug abuse patient.[facility]onIn the event this information is protected by the Federal Confidentiality of Alcohol and Drug Abuse Patient Records regulations: The Federal rules restrict any use of the information to criminally investigate or prosecute any alcohol or drug abuse patient.[facility]onIn the event this information is protected by the Federal Confidentiality of Alcohol and Drug Abuse Patient Records regulations: The Federal rules restrict any use of the information to criminally investigate or prosecute any alcohol or drug abuse patient.[facility]onIn the event this information is protected by the Federal Confidentiality of Alcohol and Drug Abuse Patient Records regulations: The Federal rules restrict any use of the information to criminally investigate or prosecute any alcohol or drug abuse patient.[facility]onIn the event this information is protected by the Federal Confidentiality of Alcohol and Drug Abuse Patient Records regulations: The Federal rules restrict any use of the information to criminally investigate or prosecute any alcohol or drug abuse patient.[facility]onIn the event this information is protected by the Federal Confidentiality of Alcohol and Drug Abuse Patient Records regulations: The Federal rules restrict any use of the information to criminally investigate or prosecute any alcohol or drug abuse patient.[facility]onIn the event this information is protected by the Federal Confidentiality of Alcohol and Drug Abuse Patient Records regulations: The Federal rules restrict any use of the information to criminally investigate or prosecute any alcohol or drug abuse patient.[facility]onIn the event this information is protected by the Federal Confidentiality of Alcohol and Drug Abuse Patient Records regulations: The Federal rules restrict any use of the information to criminally investigate or prosecute any alcohol or drug abuse patient.[facility]onIn the event this information is protected by the Federal Confidentiality of Alcohol and Drug Abuse Patient Records regulations: The Federal rules restrict any use of the information to criminally investigate or prosecute any alcohol or drug abuse patient.[facility]onIn the event this information is protected by the Federal Confidentiality of Alcohol and Drug Abuse Patient Records regulations: The Federal rules restrict any use of the information to criminally investigate or prosecute any alcohol or drug abuse patient.[facility]onIn the event this information is protected by the Federal Confidentiality of Alcohol and Drug Abuse Patient Records regulations: The Federal rules restrict any use of the information to criminally investigate or prosecute any alcohol or drug abuse patient.[facility]onIn the event this information is protected by the Federal Confidentiality of Alcohol and Drug Abuse Patient Records regulations: The Federal rules restrict any use of the information to criminally investigate or prosecute any alcohol or drug abuse patient.[facility]onIn the event this information is protected by the Federal Confidentiality of Alcohol and Drug Abuse Patient Records regulations: The Federal rules restrict any use of the information to criminally investigate or prosecute any alcohol or drug abuse patient.[facility]onIn the event this information is protected by the Federal Confidentiality of Alcohol and Drug Abuse Patient Records regulations: The Federal rules restrict any use of the information to criminally investigate or prosecute any alcohol or drug abuse patient.[facility]onIn the event this information is protected by the Federal Confidentiality of Alcohol and Drug Abuse Patient Records regulations: The Federal rules restrict any use of the information to criminally investigate or prosecute any alcohol or drug abuse patient.[facility]onIn the event this information is protected by the Federal Confidentiality of Alcohol and Drug Abuse Patient Records regulations: The Federal rules restrict any use of the information to criminally investigate or prosecute any alcohol or drug abuse patient.[facility]onIn the event this information is protected by the Federal Confidentiality of Alcohol and Drug Abuse Patient Records regulations: The Federal rules restrict any use of the information to criminally investigate or prosecute any alcohol or drug abuse patient.[facility]onIn the event this information is protected by the Federal Confidentiality of Alcohol and Drug Abuse Patient Records regulations: The Federal rules restrict any use of the information to criminally investigate or prosecute any alcohol or drug abuse patient.[facility]onIn the event this information is protected by the Federal Confidentiality of Alcohol and Drug Abuse Patient Records regulations: The Federal rules restrict any use of the information to criminally investigate or prosecute any alcohol or drug abuse patient.[facility]onIn the event this information is protected by the Federal Confidentiality of Alcohol and Drug Abuse Patient Records regulations: The Federal rules restrict any use of the information to criminally investigate or prosecute any alcohol or drug abuse patient.[facility]onIn the event this information is protected by the Federal Confidentiality of Alcohol and Drug Abuse Patient Records regulations: The Federal rules restrict any use of the information to criminally investigate or prosecute any alcohol or drug abuse patient.[facility]onIn the event this information is protected by the Federal Confidentiality of Alcohol and Drug Abuse Patient Records regulations: The Federal rules restrict any use of the information to criminally investigate or prosecute any alcohol or drug abuse patient.[facility]onIn the event this information is protected by the Federal Confidentiality of Alcohol and Drug Abuse Patient Records regulations: The Federal rules restrict any use of the information to criminally investigate or prosecute any alcohol or drug abuse patient.[facility]onIn the event this information is protected by the Federal Confidentiality of Alcohol and Drug Abuse Patient Records regulations: The Federal rules restrict any use of the information to criminally investigate or prosecute any alcohol or drug abuse patient.[facility]onIn the event this information is protected by the Federal Confidentiality of Alcohol and Drug Abuse Patient Records regulations: The Federal rules restrict any use of the information to criminally investigate or prosecute any alcohol or drug abuse patient.[facility]onIn the event this information is protected by the Federal Confidentiality of Alcohol and Drug Abuse Patient Records regulations: The Federal rules restrict any use of the information to criminally investigate or prosecute any alcohol or drug abuse patient.[facility]onIn the event this information is protected by the Federal Confidentiality of Alcohol and Drug Abuse Patient Records regulations: The Federal rules restrict any use of the information to criminally investigate or prosecute any alcohol or drug abuse patient.[facility]onIn the event this information is protected by the Federal Confidentiality of Alcohol and Drug Abuse Patient Records regulations: The Federal rules restrict any use of the information to criminally investigate or prosecute any alcohol or drug abuse patient.[facility]onIn the event this information is protected by the Federal Confidentiality of Alcohol and Drug Abuse Patient Records regulations: The Federal rules restrict any use of the information to criminally investigate or prosecute any alcohol or drug abuse patient.[facility]onIn the event this information is protected by the Federal Confidentiality of Alcohol and Drug Abuse Patient Records regulations: The Federal rules restrict any use of the information to criminally investigate or prosecute any alcohol or drug abuse patient.[facility]onIn the event this information is protected by the Federal Confidentiality of Alcohol and Drug Abuse Patient Records regulations: The Federal rules restrict any use of the information to criminally investigate or prosecute any alcohol or drug abuse patient.[facility]onIn the event this information is protected by the Federal Confidentiality of Alcohol and Drug Abuse Patient Records regulations: The Federal rules restrict any use of the information to criminally investigate or prosecute any alcohol or drug abuse patient.[facility]onIn the event this information is protected by the Federal Confidentiality of Alcohol and Drug Abuse Patient Records regulations: The Federal rules restrict any use of the information to criminally investigate or prosecute any alcohol or drug abuse patient.[facility]onIn the event this information is protected by the Federal Confidentiality of Alcohol and Drug Abuse Patient Records regulations: The Federal rules restrict any use of the information to criminally investigate or prosecute any alcohol or drug abuse patient.[facility]onIn the event this information is protected by the Federal Confidentiality of Alcohol and Drug Abuse Patient Records regulations: The Federal rules restrict any use of the information to criminally investigate or prosecute any alcohol or drug abuse patient.[facility]onIn the event this information is protected by the Federal Confidentiality of Alcohol and Drug Abuse Patient Records regulations: The Federal rules restrict any use of the information to criminally investigate or prosecute any alcohol or drug abuse patient.[facility]onIn the event this information is protected by the Federal Confidentiality of Alcohol and Drug Abuse Patient Records regulations: The Federal rules restrict any use of the information to criminally investigate or prosecute any alcohol or drug abuse patient.[facility]onIn the event this information is protected by the Federal Confidentiality of Alcohol and Drug Abuse Patient Records regulations: The Federal rules restrict any use of the information to criminally investigate or prosecute any alcohol or drug abuse patient.[facility]onIn the event this information is protected by the Federal Confidentiality of Alcohol and Drug Abuse Patient Records regulations: The Federal rules restrict any use of the information to criminally investigate or prosecute any alcohol or drug abuse patient.[facility]onIn the event this information is protected by the Federal Confidentiality of Alcohol and Drug Abuse Patient Records regulations: The Federal rules restrict any use of the information to criminally investigate or prosecute any alcohol or drug abuse patient.[facility]onIn the event this information is protected by the Federal Confidentiality of Alcohol and Drug Abuse Patient Records regulations: The Federal rules restrict any use of the information to criminally investigate or prosecute any alcohol or drug abuse patient.[facility]onIn the event this information is protected by the Federal Confidentiality of Alcohol and Drug Abuse Patient Records regulations: The Federal rules restrict any use of the information to criminally investigate or prosecute any alcohol or drug abuse patient.[facility]onIn the event this information is protected by the Federal Confidentiality of Alcohol and Drug Abuse Patient Records regulations: The Federal rules restrict any use of the information to criminally investigate or prosecute any alcohol or drug abuse patient.[facility]onIn the event this information is protected by the Federal Confidentiality of Alcohol and Drug Abuse Patient Records regulations: The Federal rules restrict any use of the information to criminally investigate or prosecute any alcohol or drug abuse patient.[facility]onIn the event this information is protected by the Federal Confidentiality of Alcohol and Drug Abuse Patient Records regulations: The Federal rules restrict any use of the information to criminally investigate or prosecute any alcohol or drug abuse patient.[facility]onIn the event this information is protected by the Federal Confidentiality of Alcohol and Drug Abuse Patient Records regulations: The Federal rules restrict any use of the information to criminally investigate or prosecute any alcohol or drug abuse patient.[facility]onIn the event this information is protected by the Federal Confidentiality of Alcohol and Drug Abuse Patient Records regulations: The Federal rules restrict any use of the information to criminally investigate or prosecute any alcohol or drug abuse patient.[facility]onIn the event this information is protected by the Federal Confidentiality of Alcohol and Drug Abuse Patient Records regulations: The Federal rules restrict any use of the information to criminally investigate or prosecute any alcohol or drug abuse patient.[facility]onIn the event this information is protected by the Federal Confidentiality of Alcohol and Drug Abuse Patient Records regulations: The Federal rules restrict any use of the information to criminally investigate or prosecute any alcohol or drug abuse patient.[facility]onIn the event this information is protected by the Federal Confidentiality of Alcohol and Drug Abuse Patient Records regulations: The Federal rules restrict any use of the information to criminally investigate or prosecute any alcohol or drug abuse patient.[facility]onIn the event this information is protected by the Federal Confidentiality of Alcohol and Drug Abuse Patient Records regulations: The Federal rules restrict any use of the information to criminally investigate or prosecute any alcohol or drug abuse patient.[facility]onIn the event this information is protected by the Federal Confidentiality of Alcohol and Drug Abuse Patient Records regulations: The Federal rules restrict any use of the information to criminally investigate or prosecute any alcohol or drug abuse patient.[facility]onIn the event this information is protected by the Federal Confidentiality of Alcohol and Drug Abuse Patient Records regulations: The Federal rules restrict any use of the information to criminally investigate or prosecute any alcohol or drug abuse patient.[facility]onIn the event this information is protected by the Federal Confidentiality of Alcohol and Drug Abuse Patient Records regulations: The Federal rules restrict any use of the information to criminally investigate or prosecute any alcohol or drug abuse patient.[facility]onIn the event this information is protected by the Federal Confidentiality of Alcohol and Drug Abuse Patient Records regulations: The Federal rules restrict any use of the information to criminally investigate or prosecute any alcohol or drug abuse patient.[facility]onIn the event this information is protected by the Federal Confidentiality of Alcohol and Drug Abuse Patient Records regulations: The Federal rules restrict any use of the information to criminally investigate or prosecute any alcohol or drug abuse patient.[facility]onIn the event this information is protected by the Federal Confidentiality of Alcohol and Drug Abuse Patient Records regulations: The Federal rules restrict any use of the information to criminally investigate or prosecute any alcohol or drug abuse patient.[facility]onIn the event this information is protected by the Federal Confidentiality of Alcohol and Drug Abuse Patient Records regulations: The Federal rules restrict any use of the information to criminally investigate or prosecute any alcohol or drug abuse patient.[facility]onIn the event this information is protected by the Federal Confidentiality of Alcohol and Drug Abuse Patient Records regulations: The Federal rules restrict any use of the information to criminally investigate or prosecute any alcohol or drug abuse patient.[facility]onIn the event this information is protected by the Federal Confidentiality of Alcohol and Drug Abuse Patient Records regulations: The Federal rules restrict any use of the information to criminally investigate or prosecute any alcohol or drug abuse patient.[facility]onIn the event this information is protected by the Federal Confidentiality of Alcohol and Drug Abuse Patient Records regulations: The Federal rules restrict any use of the information to criminally investigate or prosecute any alcohol or drug abuse patient.[facility]onIn the event this information is protected by the Federal Confidentiality of Alcohol and Drug Abuse Patient Records regulations: The Federal rules restrict any use of the information to criminally investigate or prosecute any alcohol or drug abuse patient.[facility]onIn the event this information is protected by the Federal Confidentiality of Alcohol and Drug Abuse Patient Records regulations: The Federal rules restrict any use of the information to criminally investigate or prosecute any alcohol or drug abuse patient.[facility]onIn the event this information is protected by the Federal Confidentiality of Alcohol and Drug Abuse Patient Records regulations: The Federal rules restrict any use of the information to criminally investigate or prosecute any alcohol or drug abuse patient.[facility]onIn the event this information is protected by the Federal Confidentiality of Alcohol and Drug Abuse Patient Records regulations: The Federal rules restrict any use of the information to criminally investigate or prosecute any alcohol or drug abuse patient.[facility]onIn the event this information is protected by the Federal Confidentiality of Alcohol and Drug Abuse Patient Records regulations: The Federal rules restrict any use of the information to criminally investigate or prosecute any alcohol or drug abuse patient.[facility] Reason for Visit (unrecogniz ed section and [...] UTI Specialty Diagnoses / Procedures Referred By Michael t Referred To Contact Diagnoses Recurrent UTI Mixed stress and urge urinary incontinence Procedures CONSULT TO URO GYNECOLOGY OFFICE/OUTPATIENT [facility] 60-74 MINUTES Jayde Hebert MD [address] [place] [address] Referral ID Status Reason Start Date Expiration Date V isits Requested Visits Authorized [id number] Closed PCP Requested Referral Auto-Generated Referral 08/30/2021 11/28/2021 1 1 Reason Comments Anticoagulation Telephone Fu home INR Reason Comments Consult Specialty Diagnoses / Procedures Referred By Contac t Referred To Contact Infectious Diseases Diagnoses Recurrent UTI History of ESBL E. 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 Reason Comments Follow Up [place] denies cardia c concernsDaughter, Eloisa, concerned about [...] Treatment Referral 07/04/2023 [employer] Insurance Authorization 07/04/2023 [place] appro bobby Reason Comments Medication Problem Reason Comments Orders Specialty Diagnoses / Procedures Referred By Contac t Referred To Contact [facility] Diagnoses Rheumatoid arthritis involving multiple sites with positive rheumatoid factor (HCC) Procedures INJECTION, RENFLEXIS Thalia Monterroso MD [facility] [place] [address] [address] [place] [place] [address] Referral ID Status Reason Start Date Expiration Date V isits Requested Visits Authorized [id number] Authorized 07/16/2023 03/16/2024 99 99 Specialty Diagnoses / Procedures Referred By Contac t Referred To Contact [facility] Diagnoses Rheumatoid arthritis involving multiple sites with positive rheumatoid factor (HCC) Procedures INJECTION, RENFLEXIS Thalia Monterroso MD [address] [place] [address] [facility] [address] [place] [address] Reason Comments Joint Pain Specialty Diagnoses / Procedures Referred By Contac t Referred To Contact Diagnoses Senile osteoporosis Thalia Monterroso MD [address] [place] [address] [facility] [address] [place] [address] Referral ID Status Reason Start Date Expiration Date V isits Requested Visits Authorized [id number] Authorized 11/14/2023 02/12/2024 99 99 Reason Comments Established Patient Specialty Diagnoses / Procedures Referred By Contac t Referred To Contact Diagnoses 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 Cassidy Arreola APRN.[employer] [address] [place] [address] [facility] [address] [place] [address] Referral ID Status Reason Start Date Expiration Date V isits Requested Visits Authorized [id number] Authorized 02/24/2024 05/24/2024 99 99 Specialty Diagnoses / Procedures Referred By Contac t Referred To Contact Diagnoses 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 Cassidy Arreola APRN.CHASSIS INSPECTOR [address] [place] [address] [facility] [address] [place] [address] Specialty Diagnoses / Procedures Referred By Contac t Referred To Contact CT IMAG[facility] Diagnoses Iron deficiency anemia due to chronic blood loss Bilateral hip pain Generalized abdominal pain Abdominal bloating Personal history of breast cancer Occult blood in stools Procedures CT CHEST W IVCON DIAGNOSTIC COMPUTED TOMOGRAPHY THORAX W/CONTRAST Cassidy Arreola APRN.CHASSIS INSPECTOR [address] [place] [address] [place] [address] Referral ID Status Reason Start Date Expiration Date V isits Requested Visits Authorized [id number] Closed Auto-Generate d Referral 02/24/2024 03/25/2025 [address] Specialty Diagnoses / Procedures Referred By Contac t Referred To Contact CT IMAGING Diagnoses Iron deficiency anemia due to chronic blood loss Bilateral hip pain Generalized abdominal pain Abdominal bloating Personal history of breast cancer Occult blood in stools Procedures CT CHEST W IVCON DIAGNOSTIC COMPUTED TOMOGRAPHY THORAX W/CONTRAST Cassidy Arreola APRN.CHASSIS INSPECTOR [address] [place] [address] [place] [address] Reason Comments Joint Pain Reason Comments Scheduling Care Teams (unrecognized sec tion and content) Career Representative Relationship Specialty Start Date End Date Galina Iraheta MD [address] [place] [address] PCP - General Internal Medicine 01/15/16 13, Pharmacist [phone] [place] [address] Pharmacist Pharmacy 08/22/20 Career Representative Relationship Specialty Start Date End Date Galina Iraheta MD [address] [place] [address] PCP - General Internal Medicine 01/15/16 13, Pharmacist [address] [place] [address] Pharmacist Pharmacy 08/22/20 Career Representative Relationship Specialty Start Date End Date Galina Iraheta MD [address] [place] [address] PCP - General Internal Medicine 01/15/16 13, Pharmacist [address] [place] [address] Pharmacist Pharmacy 08/22/20 Career Representative Relationship Specialty Start Date End Date Galina Iraheta MD [address] [place] [address] PCP - General Internal Medicine 01/15/16 13, Pharmacist [address] [place] [address] Pharmacist Pharmacy 08/22/20 Career Representative Relationship Specialty Start Date End Date Galina Iraheta MD [address] [place] [address] PCP - General Internal Medicine 01/15/16 13, Pharmacist [phone] [facility] [place] [address] Pharmacist Pharmacy 08/22/20 Career Representative Relationship Specialty Start Date End Date Galina Iraheta MD [address] [facility] [place] [address] PCP - General Internal Medicine 01/15/16 13, Pharmacist [phone] [place] [address] Pharmacist Pharmacy 08/22/20 Career Representative Relationship Specialty Start Date End Date Galina Iraheta MD [address] [facility] [place] [address] PCP - General Internal Medicine 01/15/16 13, Pharmacist [address]94 [place] [address] Pharmacist Pharmacy 08/22/20 Career Representative Relationship Specialty Start Date End Date Galina Iraheta MD [address] [facility] [place] [address] PCP - General Internal Medicine 01/15/16 13, Pharmacist 17815 [place] [address] Pharmacist Pharmacy 08/22/20 Career Representative Relationship Specialty Start Date End Date Galina Iraheta MD [address] [facility] [place] [address] PCP - General Internal Medicine 01/15/16 13, Pharmacist [address]25 [place] [address] Pharmacist Pharmacy 08/22/20 Career Representative Relationship Specialty Start Date End Date Galina Iraheta MD [address] [facility] [place] [address] PCP - General Internal Medicine 01/15/16 13, Pharmacist [phone] [place] [address] Pharmacist Pharmacy 08/22/20 Career Representative Relationship Specialty Start Date End Date Galina Iraheta MD [address] [facility] [place] [address] PCP - General Internal Medicine 01/15/16 13, Pharmacist [phone] [place] [address] Pharmacist Pharmacy 08/22/20 Career Representative Relationship Specialty Start Date End Date Galina Iraheta MD [address] [facility] [place] [address] PCP - General Internal Medicine 01/15/16 13, Pharmacist [phone] [place] [address] Pharmacist Pharmacy 08/22/20 Career Representative Relationship Specialty Start Date End Date Galina Iraheta MD [address] [facility] [place] [address] PCP - General Internal Medicine 01/15/16 13, Pharmacist 36844 [place] [address] Pharmacist Pharmacy 08/22/20 Career Representative Relationship Specialty Start Date End Date Galina Iraheta MD [address] [facility] [place] [address] PCP - General Internal Medicine 01/15/16 13, Pharmacist [phone] [place] [address] Pharmacist Pharmacy 08/22/20 Career Representative Relationship Specialty Start Date End Date Galina Iraheta MD [address] [facility] [place] [address] PCP - General Internal Medicine 01/15/16 13, Pharmacist [phone] [place] [address] Pharmacist Pharmacy 08/22/20 Career Representative Relationship Specialty Start Date End Date Galina Iraheta MD [address] [facility] [place] [address] PCP - General Internal Medicine 01/15/16 13, Pharmacist 74147 [place] [address] Pharmacist Pharmacy 08/22/20 Career Representative Relationship Specialty Start Date End Date Galina Iraheta MD [address] [facility] [place] [address] PCP - General Internal Medicine 01/15/16 13, Pharmacist [phone] [place] [address], [place] [address] Pharmacist Pharmacy 08/22/20 Career Representative Relationship Specialty Start Date End Date Galina Iraheta MD [address] [facility] [place] [address] PCP - General Internal Medicine 01/15/16 13, Pharmacist [phone] [place] [address], [place] [address] Pharmacist Pharmacy 08/22/20 Career Representative Relationship Specialty Start Date End Date Galina Iraheta MD [address] [facility] [place] [address] PCP - General Internal Medicine 01/15/16 13, Pharmacist [phone] [place] [address], [place] [address] Pharmacist Pharmacy 08/22/20 Career Representative Relationship Specialty Start Date End Date Galina Iraheta MD [address] [facility] [place] [address] PCP - General Internal Medicine 01/15/16 13, Pharmacist [phone] [place] [address], [place] [address] Pharmacist Pharmacy 08/22/20 Career Representative Relationship Specialty Start Date End Date Galina Iraheta MD [address] [facility] [place] [address] PCP - General Internal Medicine 01/15/16 13, Pharmacist [phone] [place] [address] Pharmacist Pharmacy 08/22/20 Career Representative Relationship Specialty Start Date End Date Galina Iraheta MD [address] [facility] [place] [address] PCP - General Internal Medicine 01/15/16 13, Pharmacist [phone] [place] [address] Pharmacist Pharmacy 08/22/20 Career Representative Relationship Specialty Start Date End Date Galina Iraheta MD [address] [facility] [place] [address] PCP - General Internal Medicine 01/15/16 13, Pharmacist 71486 [place] [address] Pharmacist Pharmacy 08/22/20 Career Representative Relationship Specialty Start Date End Date Galina Iraheta MD [address] [facility] [place] [address] PCP - General Internal Medicine 01/15/16 13, Pharmacist [phone] [place] [address] Pharmacist Pharmacy 08/22/20 Career Representative Relationship Specialty Start Date End Date Galina Iraheta MD [address] [facility] [place] [address] PCP - General Internal Medicine 01/15/16 13, Pharmacist 38550 [place] [address] Pharmacist Pharmacy 08/22/20 Career Representative Relationship Specialty Start Date End Date Galina Iraheta MD [address] [facility] [place] [address] PCP - General Internal Medicine 01/15/16 13, Pharmacist [address]5619 [place] [address] Pharmacist Pharmacy 08/22/20 Career Representative Relationship Specialty Start Date End Date Galina Iraheta MD [address] [facility] [place] [address] PCP - General Internal Medicine 01/15/16 13, Pharmacist 80927 [place] [address] Pharmacist Pharmacy 08/22/20 Career Representative Relationship Specialty Start Date End Date Galina Iraheta MD [address] [facility] [place] [address] PCP - General Internal Medicine 01/15/16 13, Pharmacist 77787 [place] [address] Pharmacist Pharmacy 08/22/20 Career Representative Relationship Specialty Start Date End Date Galina Iraheta MD [address] [facility] [place] [address] PCP - General Internal Medicine 01/15/16 13, Pharmacist [address]177 [place] [address] Pharmacist Pharmacy 08/22/20 Career Representative Relationship Specialty Start Date End Date Galina Iraheta MD [address] [facility] [place] [address] PCP - General Internal Medicine 01/15/16 Career Representative Relationship Specialty Start Date End Date Galina Iraheta MD [address] [facility] [place] [address] PCP - General Internal Medicine 01/15/16 Career Representative Relationship Specialty Start Date End Date Galina Iraheta MD [address] [facility] [place] [address] PCP - General Internal Medicine 01/15/16 Career Representative Relationship Specialty Start Date End Date Galina Iraheta MD [address] [facility] [place] [address] PCP - General Internal Medicine 01/15/16 Career Representative Relationship Specialty Start Date End Date Galina Iraheta MD [address] [facility] [place] [address] PCP - General Internal Medicine 01/15/16 Career Representative Relationship Specialty Start Date End Date Glaina Iraheta MD [address] [facility] [place] [address] PCP - General Internal Medicine 01/15/16 Career Representative Relationship Specialty Start Date End Date Galina Iraheta MD [address] [place] [address] PCP - General Internal Medicine 01/15/16 Career Representative Relationship Specialty Start Date End Date Galina Iraheta MD [address] [place] [address] PCP - General Internal Medicine 01/15/16 Career Representative Relationship Specialty Start Date End Date Galina Iraheta MD [address] [place] [address] PCP - General Internal Medicine 01/15/16 Career Representative Relationship Specialty Start Date End Date Galina Iraheta MD [address] [place] [address] PCP - General Internal Medicine 01/15/16 Sal Bonilla, DO [address] [place] [address] Hematology/Oncology 03/22/22 Career Representative Relationship Specialty Start Date End Date Galina Iraheta MD [address] [place] [address] PCP - General Internal Medicine 01/15/16 Sal Bonilla, DO [address] [place] [address] Hematology/Oncology 03/22/22 Career Representative Relationship Specialty Start Date End Date Galina Iraheta MD [address] [place] [address] PCP - General Internal Medicine 01/15/16 Sal Bonilla, DO [address] [place] [address] Hematology/Oncology 03/22/22 Team Status: Active Member Role Status Dates Dr. Galina Iraheta MD Family Provider Active Dr. Galina Iraheta MD Primary Care Provider Active Team Status: Inactive Member Role Status Dates Dr. Galina Iraheta MD Primary Care Provider Active Galina Horner WATER TREATMENT PLANT OPERATOR, WATER TREATMENT PLANT OPERATOR-C Attending Provider Active Team Status: Inactive Member [...] Galina Iraheta MD Primary Care Provider Active Payam Reyna MD Attending Provider Active Team Status: Inactive Member Role Status Dates Dr. Galina Iraheta MD Primary Care Provider Active Galina Horner WATER TREATMENT PLANT OPERATOR, WATER TREATMENT PLANT OPERATOR-C Attending Provider, Referring Provider Active Team Status: Active Member Role Status Dates Dr. Galina Iraheta MD Primary Care Provider Active Payam Reyna MD Attending Provider Active Career Representative Relationship Specialty Start Date End Date Galina Iraheta MD [address] [facility] [place] [address] PCP - General Internal Medicine 01/15/16 Sal Bonilla, DO [address] [facility] [place] [address] Hematology/Oncology 03/22/22 Career Representative Relationship Specialty Start Date End Date Galina Iraheta MD [address] [facility] [place] [address] PCP - General Internal Medicine 01/15/16 Sal Bonilla, [address] [facility] [place] [address] Hematology/Oncology 03/22/22 Career Representative Relationship Specialty Start Date End Date Galina Iraheta MD [address] [facility] [place] [address] PCP - General Internal Medicine 01/15/16 Sal Bonilla, DO [address] [place] [address] Hematology/Oncology 03/22/22 Career Representative Relationship Specialty Start Date End Date Galina Iraheta MD [address] [place] [address] PCP - General Internal Medicine 01/15/16 Sal Bonilla, DO [address] [place] [address] Hematology/Oncology 03/22/22 Career Representative Relationship Specialty Start Date End Date Galina Iraheta MD [address] [place] [address] PCP - General Internal Medicine 01/15/16 Sal Bonilla, DO [address] [place] [address] Hematology/Oncology 03/22/22 Career Representative Relationship Specialty Start Date End Date Galina Iraheta MD [address] [place] [address] PCP - General Internal Medicine 01/15/16 Sal Bonilla, DO [address] [place] [address] Hematology/Oncology 03/22/22 Career Representative Relationship Specialty Start Date End Date Galina Iraheta MD [address] [place] [address] PCP - General Internal Medicine 01/15/16 Sal Bonilla, DO [address] [place] [address] Hematology/Oncology 03/22/22 Team Status: Inactive Member Role Status Dates Dr. Galina Iraheta MD Primary Care Provider Active Payam POPE MD Attending Provider Active Team Status: [...] Galina Iraheta MD Primary Care Provider Active Payam POPE MD Attending Provider Active Career Representative Relationship Specialty Start Date End Date Galina Iraheta MD [address] [facility] [place] [address] PCP - General Internal Medicine 01/15/16 Sal Bonilla DO [address] [place] [address] Hematology/Oncology 03/22/22 Career Representative Relationship Specialty Start Date End Date Galina Iraheta MD [address] [place] [address] PCP - General Internal Medicine 01/15/16 Sal Bonilla DO [address] [place] [address] Hematology/Oncology 03/22/22 Career Representative Relationship Specialty Start Date End Date Galina Iraheta MD [address] [place] [address] PCP - General Internal Medicine 01/15/16 Sal Bonilla DO [address] [place] [address] Hematology/Oncology 03/22/22 Career Representative Relationship Specialty Start Date End Date Galina Iraheta MD [address] [place] [address] PCP - General Internal Medicine 01/15/16 Sal Bonilla DO [address] [place] [address] Hematology/Oncology 03/22/22 Career Representative Relationship Specialty Start Date End Date Galina Iraheta MD [address] [place] [address] PCP - General Internal Medicine 01/15/16 Sal Bonilla DO [address] [place] [address] Hematology/Oncology 03/22/22 Career Representative Relationship Specialty Start Date End Date Galina Iraheta MD [address] [place] [address] PCP - General Internal Medicine 01/15/16 Sal Bonilla DO [address] [place] [address] Hematology/Oncology 03/22/22 Career Representative Relationship Specialty Start Date End Date Galina Iraheta MD [address] [place] [address] PCP - General Internal Medicine 01/15/16 Sal Bonilla DO [address] [place] [address] Hematology/Oncology 03/22/22 Career Representative Relationship Specialty Start Date End Date Galina Iraheta MD [address] [place] [address] PCP - General Internal Medicine 01/15/16 Sal Bonilla DO [address] [place] [address] Hematology/Oncology 03/22/22 Career Representative Relationship Specialty Start Date End Date Galina Iraheta MD [address] [facility] [address] PCP - General Internal Medicine 01/15/16 Sal Bonilla DO [address] [place] [address] Hematology/Oncology 03/22/22 Career Representative Relationship Specialty Start Date End Date Payam Reyna MD [address] [place] [address] PCP - General Internal Medicine 02/24/23 Sal Bonilla DO [address] [place] [address] Hematology/Oncology 03/22/22 Career Representative Relationship Specialty Start Date End Date Payam Reyna MD [address] [place] [address] PCP - General Internal Medicine 02/24/23 Sal Bonilla DO [address] [place] [address] Hematology/Oncology 03/22/22 Career Representative Relationship Specialty Start Date End Date Payam Reyna MD [address] [place] [address] PCP - General Internal Medicine 02/24/23 Sal Bonilla DO [address] [place] [address] [place] [address] Hematology/Oncology 03/22/22 Career Representative Relationship Specialty Start Date End Date Payam Renya MD [address] [place] [address] PCP - General Internal Medicine 02/24/23 Sal Bonilla DO [address] [place] [address] Hematology/Oncology 03/22/22 Career Representative Relationship Specialty Start Date End Date Payam Reyna MD [address] [place] [address] PCP - General Internal Medicine 02/24/23 Sal Bonilla DO [address] [place] [address] Hematology/Oncology 03/22/22 Career Representative Relationship Specialty Start Date End Date Payam Reyna MD [address] [place] [address] PCP - General Internal Medicine 02/24/23 Sal Bonilla DO [address] [place], [place] [address]9969 [phone] Hematology/Oncology 03/22/22 Career Representative Relationship Specialty Start Date End Date Payam Reyna MD [address] [place], [place] [address]181 PCP - General Internal Medicine 02/24/23 Sal Bonilla DO [address] [place] [address] Hematology/Oncology 03/22/22 Career Representative Relationship Specialty Start Date End Date Payam Reyna MD [address] [place] [address] PCP - General Internal Medicine 02/24/23 Sal Bonilla DO [address] [place] [address] Hematology/Oncology 03/22/22 Career Representative Relationship Specialty Start Date End Date Payam Reyna MD [address] [place] [address] PCP - General Internal Medicine 02/24/23 Sal Bonilla DO [address] [place] [address] Hematology/Oncology 03/22/22 Career Representative Relationship Specialty Start Date End Date Payam Reyna MD [address] [place] [address] PCP - General Internal Medicine 02/24/23 Sal Bonilla DO [address] [place], [place] 814533 [phone] Hematology/Oncology 03/22/22 Career Representative Relationship Specialty Start Date End Date Payam Reyna MD [address] [place], [place] [address]40[address] 084- PCP - General Internal Medicine 02/24/23 Sal Bonilla DO [address] [place] [address] Hematology/Oncology 03/22/22 Career Representative Relationship Specialty Start Date End Date Payam Reyna MD [address] [place] [address] PCP - General Internal Medicine 02/24/23 Sal Bonilla DO [address] [place] [address] Hematology/Oncology 03/22/22 Career Representative Relationship Specialty Start Date End Date Payam Reyna MD [address] [place] [address] PCP - General Internal Medicine 02/24/23 Sal Bonilla DO [address] [place] [address] Hematology/Oncology 03/22/22 Career Representative Relationship Specialty Start Date End Date Payam Reyna MD [address] [place] [address] PCP - General Internal Medicine 02/24/23 Sal Bonilla DO [address] [place] [address] Hematology/Oncology 03/22/22 Career Representative Relationship Specialty Start Date End Date Payam Reyna MD [address] [place] [address] PCP - General Internal Medicine 02/24/23 Sal Bonilla DO [address] [place] [address] Hematology/Oncology 03/22/22 Career Representative Relationship Specialty Start Date End Date Payam Reyna MD [address] [place] [address] PCP - General Internal Medicine 02/24/23 Sal Bonilla DO [address] [place] [address] Hematology/Oncology 03/22/22 Career Representative Relationship Specialty Start Date End Date Payam Reyna MD [address] [place] [address] PCP - General Internal Medicine 02/24/23 Sal Bonilla DO [address] [place] [address] Hematology/Oncology 03/22/22 Career Representative Relationship Specialty Start Date End Date Payam Reyna MD [address] [place] [address] PCP - General Internal Medicine 02/24/23 Sal Bonilla DO [address] [place] [address] Hematology/Oncology 03/22/22 Career Representative Relationship Specialty Start Date End Date Payam Reyna MD [address] [place] [address] PCP - General Internal Medicine 02/24/23 Sal Bonilla DO [address] [place] [address] Hematology/Oncology 03/22/22 Career Representative Relationship Specialty Start Date End Date Payam Reyna MD [address] [place] [address] PCP - General Internal Medicine 02/24/23 Sal Bonilla DO [address] [place] [address] Hematology/Oncology 03/22/22 Career Representative Relationship Specialty Start Date End Date Payam Reyna MD [address] [place] [address] PCP - General Internal Medicine 02/24/23 Sal Bonilla DO [address] [place] [address] Hematology/Oncology 03/22/22 Career Representative Relationship Specialty Start Date End Date Payam Reyna MD [address] [place] [address] PCP - General Internal Medicine 02/24/23 Sal Bonilla DO [address] [place] [address] Hematology/Oncology 03/22/22 Career Representative Relationship Specialty Start Date End Date Payam Reyna MD [address] [place] [address] PCP - General Internal Medicine 02/24/23 Sal Bonilla DO [address] [place] [address] Hematology/Oncology 03/22/22 Career Representative Relationship Specialty Start Date End Date Galina Iraheta MD [address] [facility] [address] PCP - General Internal Medicine 01/15/16 02/23/23 13, Pharmacist [address] [place] [address] Pharmacist Pharmacy 08/22/20 11/04/21 Career Representative Relationship Specialty Start Date End Date Galina Iraheta MD [address] [place] [address] PCP - General Internal Medicine 01/15/16 02/23/23 13, Pharmacist [address] [place] [address] Pharmacist Pharmacy 08/22/20 11/04/21 Career Representative Relationship Specialty Start Date End Date Galina Iraheta MD [address] [place] [address] PCP - General Internal Medicine 01/15/16 02/23/23 Career Representative Relationship Specialty Start Date End Date Payam Reyna MD [address] [place] [address] PCP - General Internal Medicine 02/24/23 Sal Bonilla DO [address] [place] [address] Hematology/Oncology 03/22/22 Career Representative Relationship Specialty Start Date End Date Payam Reyna MD [address] [place] [address] PCP - General Internal Medicine 02/24/23 Sal Bonilla DO [address] [place] [address] Hematology/Oncology 03/22/22 Career Representative Relationship Specialty Start Date End Date Payam Reyna MD [address] [place] [address] PCP - General Internal Medicine 02/24/23 Sal Bonilla DO [address] [facility] [address] Hematology/Oncology 03/22/22 Career Representative Relationship Specialty Start Date End Date Payam Reyna MD [address] [place] [address] PCP - General Internal Medicine 02/24/23 Sal Bonilla DO [address] [place] [address] Hematology/Oncology 03/22/22 Career Representative Relationship Specialty Start Date End Date Payam Reyna MD [address] [place] [address] PCP - General Internal Medicine 02/24/23 Sal Bonilla DO [address] [address] Hematology/Oncology 03/22/22 Career Representative Relationship Specialty Start Date End Date Payam Reyna MD [address] [place], [place] 439891 133- PCP - General Internal Medicine 02/24/23 Sal Bonilla DO [address] [place] [address] Hematology/Oncology 03/22/22 Career Representative Relationship Specialty Start Date End Date Payam Reyna MD [address] [place] [place] [address] PCP - General Internal Medicine 02/24/23 Sal Bonilla DO [address] [place] [address] Hematology/Oncology 03/22/22 Career Representative Relationship Specialty Start Date End Date Payam Reyna MD [address] [place] [address] PCP - General Internal Medicine 02/24/23 Sal Bonilla DO [address] [place] [address] Hematology/Oncology 03/22/22 Career Representative Relationship Specialty Start Date End Date Payam Reyna MD [address] [place] [address] PCP - General Internal Medicine 02/24/23 Sal Bonilla DO [address] [place] [address] Hematology/Oncology 03/22/22 Career Representative Relationship Specialty Start Date End Date Payam Reyna MD [address] [place], [place] [id number] PCP - General Internal Medicine 02/24/23 Sal Bonilla DO [address], [place] [address] Hematology/Oncology 03/22/22 Career Representative Relationship Specialty Start Date End Date Payam Reyna MD [address] [place] [address] PCP - General Internal Medicine 02/24/23 Sal Bonilla DO [address], [place] [address] Hematology/Oncology 03/22/22 Career Representative Relationship Specialty Start Date End Date Payam Reyna MD [address] [place] [address] PCP - General Internal Medicine 02/24/23 Sal Bonilla DO [address], [place] [id number] Hematology/Oncology 03/22/22 Team Status: Active Member Role Status Dates Dr. Galina Iraheta MD Primary Care Provider Active Start: March 01, 2024 Payam POPE MD Attending Provider Active Start: March 01, 2024 Team Status: Active Member Role Status Dates Dr. Galina Iraheta MD Primary Care Provider Active Start: March 02, 2024 Payam POPE MD Attending Provider Active Start: March 02, 2024 Team Status: Inactive Member Role Status Dates Dr. Galina Iraheta MD Primary Care Provider Active Start: April 05, 2024 End: April 05, 2024 Payma POPE MD Attending Provider Active Start: April 05, 2024 End: April 05, 2024 Team Status: Inactive Member Role Status Dates Dr. Galina Iraheta MD Primary Care Provider Active Start: April 23, 2024 End: April 23, 2024 Payam POPE MD Attending Provider Active Start: April 23, 2024 End: April 23, 2024 Payam POPE MD Referring Provider Active Start: April 23, 2024 End: April 23, 2024 Team Status: Active Member Role Status Dates Dr. Galina Iraheta MD Primary Care Provider Active Start: May 03, 2024 Payam POPE MD Attending Provider Active Start: May 03, 2024 Team Status: Inactive Member Role Status Dates Dr. Galina Iraheta MD Primary Care Provider Active Start: May 13, 2024 End: May 13, 2024 Galina Horner NP, WATER TREATMENT PLANT OPERATOR-C Attending Provider Active Start: May 13, 2024 End: May 13, 2024 Team Status: Inactive Member Role Status Dates Dr. Galina Iraheta MD Primary Care Provider Active Start: May 13, 2024 End: May 13, 2024 Payam POPE MD Attending Provider Active Start: May 13, 2024 End: May 13, 2024 Team Status: Active Member Role Status Dates Dr. Galina Iraheta MD Primary Care Provider Active Start: May 31, 2024 Payam POPE MD Attending Provider Active Start: May 31, 2024 Team Status: Active Member Role Status Dates Dr. Galina Iraheta MD Primary Care Provider Active Start: June 16, 2024 Payam POPE MD Attending Provider Active Start: June 16, 2024 Team Status: Inactive Member Role Status Dates Dr. Galina Iraheta MD Primary Care Provider Active Start: May 31, 2024 End: May 31, 2024 Payam POPE MD Attending Provider Active Start: May 31, 2024 End: May 31, 2024 Team Status: Active Member Role Status Dates Dr. Galina Iraheta MD Primary Care Provider Active Team Status: Inactive Member Role Status Dates Dr. Galina Iraheta MD Primary Care Provider Active Start: June 16, 2024 End: June 16, 2024 Payam POPE MD Attending Provider Active Start: June 16, 2024 End: June 16, 2024 Team Status: Active Member Role Status Dates Dr. Galina Iraheta MD Primary Care Provider Active Start: July 05, 2024 Payam POPE MD Attending Provider Active Start: July 05, 2024 Team Status: Inactive Member Role Status Dates Dr. Galina Iraheta MD Primary Care Provider Active Start: July 06, 2024 End: July 06, 2024 Dr. Payam Reyna MD Attending Provider Active Start: July 06, 2024 End: July 06, 2024 Team Status: Active Member Role Status Dates Dr. Galina Iraheta MD Primary Care Provider Active Start: July 07, 2024 Payam POPE MD Attending Provider Active Start: July 07, 2024 Team Status: Active Member Role Status Dates Dr. Galina Iraheta MD Primary Care Provider Active Start: July 08, 2024 Payam POPE MD Attending Provider Active Start: July 08, 2024 Team Status: Inactive Member Role Status Dates Dr. Galina Iraheta MD Primary Care Provider Active Start: July 07, 2024 End: July 07, 2024 Payam POPE MD Attending Provider Active Start: July 07, 2024 End: July 07, 2024 Team Status: Inactive Member Role Status Dates Dr. Galina Iraheta MD Primary Care Provider Active Start: July 05, 2024 End: July 05, 2024 Payam POPE MD Attending Provider Active Start: July 05, 2024 End: July 05, 2024 Team Status: Inactive Member Role Status Dates Dr. Galina Iraheta MD Primary Care Provider Active Start: July 08, 2024 End: July 08, 2024 Payam POPE MD Attending Provider Active Start: July 08, 2024 End: July 08, 2024 Team Status: Active Member Role Status Dates Dr. Payam Reyna MD Primary Care Provider Active Team Status: Inactive Member Role Status Dates Dr. Galina Iraheta MD Primary Care Provider Active Start: August 02, 2024 End: August 02, 2024 Payam POPE MD Attending Provider Active Start: August 02, 2024 End: August 02, 2024 Payam POPE MD Referring Provider Active Start: August 02, 2024 End: August 02, 2024 Team Status: Inactive Member Role Status Dates Dr. Hiwot Abdullahi MD Attending Provider Active Start: August 06, 2024 End: August 06, 2024 Dr. Hiwot Abdullahi MD Referring Provider Active Start: August 06, 2024 End: August 06, 2024 Dr. Payam Reyna MD Primary Care Provider Active Start: August 06, 2024 End: August 06, 2024 Team Status: Active Member Role Status Dates Dr. Payam Reyna MD Primary Care Provider Active Start: August 13, 2024 Dr. Payam Reyna MD Referring Provider Active Start: August 13, 2024 SAVANNAH WatersC Attending Provider Active Start: August 13, 2024 Team Status: Inactive Member Role Status Dates Dr. Payam Reyna MD Primary Care Provider Active Start: August 13, 2024 End: August 13, 2024 Dr. Charles Ramos MD Attending Provider Active S tart: August 13, 2024 End: August 13, 2024 Team Status: Inactive Member Role Status Dates Dr. Payam Reyna MD Primary Care Provider Active Start: August 13, 2024 End: August 13, 2024 Dr. Payam Reyna MD Referring Provider Active Start: August 13, 2024 End: August 13, 2024 OLIVE Watesr Attending Provider Active Start: August 13, 2024 End: August 13, 2024 Team Status: Active Member Role Status Dates Dr. Payam Reyna MD Primary Care Provider Active Start: August 18, 2024 Dr. Payam Reyna MD Referring Provider Active Start: August 18, 2024 OLIVE Waters Attending Provider Active Start: August 18, 2024 Team Status: Inactive Member Role Status Dates Dr. Payam Reyna MD Primary Care Provider Active Start: August 18, 2024 End: August 18, 2024 Dr. Charles Ramos MD Attending Provider Active S tart: August 18, 2024 End: August 18, 2024 Team Status: Inactive Member Role Status Dates Dr. Payam Reyna MD Primary Care Provider Active Start: August 18, 2024 End: August 18, 2024 Dr. Payam Reyna MD Referring Provider Active Start: August 18, 2024 End: August 18, 2024 OLIVE Waters Attending Provider Active Start: August 18, 2024 End: August 18, 2024 Career Representative Relationship Specialty Start Date End Date Payam Reyna MD [address] [place], [place] [address] PCP - General Internal Medicine 02/24/23 Sal Bonilla DO [address] [place], [place] [id number] Hematology/Oncology 03/22/22 Team Status: Active Member Role Status Dates Dr. Payam Reyna MD Primary Care Provider Active Start: August 30, 2024 Payam POPE MD Attending Provider Active Start: August 30, 2024 Team Status: Active Member Role Status Dates Dr. Payam Reyna MD Primary Care Provider Active Start: September 03, 2024 Dr. Payam Reyna MD Referring Provider Active Start: September 03, 2024 OLIVE Waters Attending Provider Active Start: September 03, 2024 Team Status: Inactive Member Role Status Dates Dr. Payam Reyna MD Primary Care Provider Active Start: September 03, 2024 End: September 03, 2024 Dr. Charles Ramos MD Attending Provider Active S tart: September 03, 2024 End: September 03, 2024 Team Status: Inactive Member Role Status Dates Dr. Payam Reyna MD Primary Care Provider Active Start: September 03, 2024 End: September 03, 2024 Dr. Payam Reyna MD Referring Provider Active Start: September 03, 2024 End: September 03, 2024 OLIVE Waters Attending Provider Active Start: September 03, 2024 End: September 03, 2024 Team Status: Inactive Member Role Status Dates Dr. Payam Reyna MD Primary Care Provider Active Start: September 07, 2024 End: September 07, 2024 Dr. Payam Reyna MD Referring Provider Active Start: September 07, 2024 End: September 07, 2024 Juliet Parham NP-C Attending Provider Active Start: September 07, 2024 End: September 07, 2024 Team Status: Inactive Member Role Status Dates Dr. Payam Reyna MD Primary Care Provider Active Start: August 12, 2024 End: August 12, 2024 Galina Horner WATER TREATMENT PLANT OPERATOR, WATER TREATMENT PLANT OPERATOR-C Attending Provider Active Start: August 12, 2024 End: August 12, 2024 Career Representative Relationship Specialty Start Date End Date Payam Reyna MD [address] [place], [place] [address] PCP - General Internal Medicine 02/24/23 Sal Bonilla DO [address] [place], [place] [id number] Hematology/Oncology 03/22/22 Team Status: Active Member Role/Relationship Status Dates Galina Horner NP, WATER TREATMENT PLANT OPERATOR-C Primary Care Provider Active Team Status: Inactive Member Role/Relationship Status Dates Dr. Galina Iraheta MD Primary Care Provider Active Start: May 31, 2024 End: May 31, 2024 Payam POPE MD Attending Provider Active Start: May 31, 2024 End: May 31, 2024 Team Status: Inactive Member Role/Relationship Status Dates Dr. Galina Iraheta MD Primary Care Provider Active Start: June 16, 2024 End: June 16, 2024 Payam POPE MD Attending Provider Active Start: June 16, 2024 End: June 16, 2024 Team Status: Inactive Member Role/Relationship Status Dates Dr. Galina Iraheta MD Primary Care Provider Active Start: July 05, 2024 End: July 05, 2024 Payam POPE MD Attending Provider Active Start: July 05, 2024 End: July 05, 2024 Team Status: Inactive Member Role/Relationship Status Dates Dr. Galina Iraheta MD Primary Care Provider Active Start: July 06, 2024 End: July 06, 2024 Dr. Payam Reyna MD Attending Provider Active Start: July 06, 2024 End: July 06, 2024 Team Status: Inactive Member Role/Relationship Status Dates Dr. Galina Iraheta MD Primary Care Provider Active Start: July 07, 2024 End: July 07, 2024 Payam POPE MD Attending Provider Active Start: July 07, 2024 End: July 07, 2024 Team Status: Inactive Member Role/Relationship Status Dates Dr. Galina Iraheta MD Primary Care Provider Active Start: July 08, 2024 End: July 08, 2024 Payam POPE MD Attending Provider Active Start: July 08, 2024 End: July 08, 2024 Team Status: Inactive Member Role/Relationship Status Dates Dr. Galina Iraheta MD Primary Care Provider Active Start: August 02, 2024 End: August 02, 2024 Payam POPE MD Attending Provider Active Start: August 02, 2024 End: August 02, 2024 Payam POPE MD Referring Provider Active Start: August 02, 2024 End: August 02, 2024 Team Status: Inactive Member Role/Relationship Status Dates Dr. Hiwot Abdullahi MD Attending Provider Active Start: August 06, 2024 End: August 06, 2024 Dr. Hiwot Abdullahi MD Referring Provider Active Start: August 06, 2024 End: August 06, 2024 Dr. Payam Reyna MD Primary Care Provider Active Start: August 06, 2024 End: August 06, 2024 Team Status: Inactive Member Role/Relationship Status Dates Dr. Payam Reyna MD Primary Care Provider Active Start: August 12, 2024 End: August 12, 2024 Galina Horner NP, WATER TREATMENT PLANT OPERATOR-C Attending Provider Active Start: August 12, 2024 End: August 12, 2024 Team Status: Inactive Member Role/Relationship Status Dates Dr. Payam Reyna MD Primary Care Provider Active Start: August 13, 2024 End: August 13, 2024 Dr. Payam Reyna MD Referring Provider Active Start: August 13, 2024 End: August 13, 2024 OLIVE Waters Attending Provider Active Start: August 13, 2024 End: August 13, 2024 Team Status: Inactive Member Role/Relationship Status Dates Dr. Payam Reyna MD Primary Care Provider Active Start: August 13, 2024 End: August 13, 2024 Dr. Charles Ramos MD Attending Provider Active S tart: August 13, 2024 End: August 13, 2024 Team Status: Inactive Member Role/Relationship Status Dates Dr. Payam Reyna MD Primary Care Provider Active Start: August 18, 2024 End: August 18, 2024 Dr. Payam Reyna MD Referring Provider Active Start: August 18, 2024 End: August 18, 2024 OLIVE Waters Attending Provider Active Start: August 18, 2024 End: August 18, 2024 Team Status: Inactive Member Role/Relationship Status Dates Dr. Payam Reyna MD Primary Care Provider Active Start: August 18, 2024 End: August 18, 2024 Dr. Charles Ramos MD Attending Provider Active S tart: August 18, 2024 End: August 18, 2024 Team Status: Active Member Role/Relationship Status Dates Dr. Payam Reyna MD Primary Care Provider Active Start: August 30, 2024 Payam POPE MD Attending Provider Active Start: August 30, 2024 Team Status: Inactive Member Role/Relationship Status Dates Dr. Payam Reyna MD Primary Care Provider Active Start: September 03, 2024 End: September 03, 2024 Dr. Payam Reyna MD Referring Provider Active Start: September 03, 2024 End: September 03, 2024 OLIVE Waters Attending Provider Active Start: September 03, 2024 End: September 03, 2024 Team Status: Inactive Member Role/Relationship Status Dates Dr. Payam Reyna MD Primary Care Provider Active Start: September 03, 2024 End: September 03, 2024 Dr. Charles Ramos MD Attending Provider Active S tart: September 03, 2024 End: September 03, 2024 Team Status: Inactive Member Role/Relationship Status Dates Dr. Payam Reyna MD Primary Care Provider Active Start: September 07, 2024 End: September 07, 2024 Dr. Payam Reyna MD Referring Provider Active Start: September 07, 2024 End: September 07, 2024 Juliet Parham NP-C Attending Provider Active Start: September 07, 2024 End: September 07, 2024 Team Status: Inactive Member Role/Relationship Status Dates Dr. Sung Torres DO Emergency Provider Active Start: September 14, 2024 End: September 14, 2024 Galina Horner WATER TREATMENT PLANT OPERATOR, WATER TREATMENT PLANT OPERATOR-C Primary Care Provider Active Start: September 14, 2024 End: September 14, 2024 Team Status: Inactive Member Role/Relationship Status Dates Dr. Sung Torres DO Attending Provider Active Start: September 14, 2024 End: September 14, 2024 Dr. Sung Torres DO Emergency Provider Active Start: September 14, 2024 End: September 14, 2024 Galina Horner WATER TREATMENT PLANT OPERATOR, WATER TREATMENT PLANT OPERATOR-C Primary Care Provider Active Start: September 14, 2024 End: September 14, 2024 Team Status: Active Member Role/Relationship Status Dates Dr. Payam Reyna MD Referring Provider Active Start: September 24, 2024 Carmella Deluca WATER TREATMENT PLANT OPERATOR-C Attending Provider Active Start: September 24, 2024 Galina Horner WATER TREATMENT PLANT OPERATOR, WATER TREATMENT PLANT OPERATOR-C Primary Care Provider Active Start: September 24, 2024 Team Status: Inactive Member Role/Relationship Status Dates Galina Horner WATER TREATMENT PLANT OPERATOR, WATER TREATMENT PLANT OPERATOR-C Primary Care Provider Active Start: September 24, 2024 End: September 24, 2024 Dr. Charles Ramos MD Attending Provider Active S tart: September 24, 2024 End: September 24, 2024 Team Status: Inactive Member Role/Relationship Status Dates Dr. Payam Reyna MD Referring Provider Active Start: September 24, 2024 End: September 24, 2024 Carmella Deluca WATER TREATMENT PLANT OPERATOR-C Attending Provider Active Start: September 24, 2024 End: September 24, 2024 Galina Horner WATER TREATMENT PLANT OPERATOR, WATER TREATMENT PLANT OPERATOR-C Primary Care Provider Active Start: September 24, 2024 End: September 24, 2024 Team Status: Inactive Member Role/Relationship Status Dates Dr. Galina Iraheta MD Primary Care Provider Active Start: June 16, 2024 End: June 16, 2024 Payam POPE MD Attending Provider Active Start: June 16, 2024 End: June 16, 2024 Team Status: Inactive Member Role/Relationship Status Dates Dr. Galina Iraheta MD Primary Care Provider Active Start: July 05, 2024 End: July 05, 2024 Payam POPE MD Attending Provider Active Start: July 05, 2024 End: July 05, 2024 Team Status: Inactive Member Role/Relationship Status Dates Dr. Galina Iraheta MD Primary Care Provider Active Start: July 06, 2024 End: July 06, 2024 Dr. Payam Reyna MD Attending Provider Active Start: July 06, 2024 End: July 06, 2024 Team Status: Inactive Member Role/Relationship Status Dates Dr. Galina Iraheta MD Primary Care Provider Active Start: July 07, 2024 End: July 07, 2024 Payam POPE MD Attending Provider Active Start: July 07, 2024 End: July 07, 2024 Team Status: Inactive Member Role/Relationship Status Dates Dr. Galina Iraheta MD Primary Care Provider Active Start: July 08, 2024 End: July 08, 2024 Payam POPE MD Attending Provider Active Start: July 08, 2024 End: July 08, 2024 Team Status: Inactive Member Role/Relationship Status Dates Dr. Galina Iraheta MD Primary Care Provider Active Start: August 02, 2024 End: August 02, 2024 Payam POPE MD Attending Provider Active Start: August 02, 2024 End: August 02, 2024 Payam POPE MD Referring Provider Active Start: August 02, 2024 End: August 02, 2024 Team Status: Inactive Member Role/Relationship Status Dates Dr. Hiwot Abdullahi MD Attending Provider Active Start: August 06, 2024 End: August 06, 2024 Dr. Hiwot Abdullahi MD Referring Provider Active Start: August 06, 2024 End: August 06, 2024 Dr. Payam Reyna MD Primary Care Provider Active Start: August 06, 2024 End: August 06, 2024 Team Status: Inactive Member Role/Relationship Status Dates Dr. Payam Reyna MD Primary Care Provider Active Start: August 12, 2024 End: August 12, 2024 Galina Horner WATER TREATMENT PLANT OPERATOR, WATER TREATMENT PLANT OPERATOR-C Attending Provider Active Start: August 12, 2024 End: August 12, 2024 Team Status: Inactive Member Role/Relationship Status Dates Dr. Payam Reyna MD Primary Care Provider Active Start: August 13, 2024 End: August 13, 2024 Dr. Payam Reyna MD Referring Provider Active Start: August 13, 2024 End: August 13, 2024 Carmella Deluca WATER TREATMENT PLANT OPERATOR-C Attending Provider Active Start: August 13, 2024 End: August 13, 2024 Team Status: Inactive Member Role/Relationship Status Dates Dr. Payam Reyna MD Primary Care Provider Active Start: August 13, 2024 End: August 13, 2024 Dr. Charles Ramos MD Attending Provider Active S tart: August 13, 2024 End: August 13, 2024 Team Status: Inactive Member Role/Relationship Status Dates Galina Horner WATER TREATMENT PLANT OPERATOR, WATER TREATMENT PLANT OPERATOR-C Primary Care Provider Active Start: August 16, 2024 End: August 16, 2024 Galina Horner WATER TREATMENT PLANT OPERATOR, WATER TREATMENT PLANT OPERATOR-C Attending Provider Active Start: August 16, 2024 End: August 16, 2024 Team Status: Active Member Role/Relationship Status Dates Galina Horner WATER TREATMENT PLANT OPERATOR, WATER TREATMENT PLANT OPERATOR-C Primary Care Provider Active Start: October 04, 2024 Payam POPE MD Attending Provider Active Start: October 04, 2024 Team Status: Inactive Member Role/Relationship Status Dates Dr. Galina Iraheta MD Primary Care Provider Active Start: July 05, 2024 End: July 05, 2024 Payam POPE MD Attending Provider Active Start: July 05, 2024 End: July 05, 2024 Team Status: Inactive Member Role/Relationship Status Dates Dr. Galina Iraheta MD Primary Care Provider Active Start: July 06, 2024 End: July 06, 2024 Dr. Payam Reyna MD Attending Provider Active Start: July 06, 2024 End: July 06, 2024 Team Status: Inactive Member Role/Relationship Status Dates Dr. Galina Iraheta MD Primary Care Provider Active Start: July 07, 2024 End: July 07, 2024 Payam POPE MD Attending Provider Active Start: July 07, 2024 End: July 07, 2024 Team Status: Inactive Member Role/Relationship Status Dates Dr. Galina Iraheta MD Primary Care Provider Active Start: July 08, 2024 End: July 08, 2024 Payam POPE MD Attending Provider Active Start: July 08, 2024 End: July 08, 2024 Team Status: Inactive Member Role/Relationship Status Dates Dr. Galina Iraheta MD Primary Care Provider Active Start: August 02, 2024 End: August 02, 2024 Payam POPE MD Attending Provider Active Start: August 02, 2024 End: August 02, 2024 Payam POPE MD Referring Provider Active Start: August 02, 2024 End: August 02, 2024 Team Status: Inactive Member Role/Relationship Status Dates Dr. Hiwot Abdullahi MD Attending Provider Active Start: August 06, 2024 End: August 06, 2024 Dr. Hiwot Abdullahi MD Referring Provider Active Start: August 06, 2024 End: August 06, 2024 Dr. Payam Reyna MD Primary Care Provider Active Start: August 06, 2024 End: August 06, 2024 Team Status: Inactive Member Role/Relationship Status Dates Dr. Payam Reyna MD Primary Care Provider Active Start: August 12, 2024 End: August 12, 2024 Galina Horner NP WATER TREATMENT PLANT OPERATOR-C Attending Provider Active Start: August 12, 2024 End: August 12, 2024 Team Status: Inactive Member Role/Relationship Status Dates Dr. Payam Reyna MD Primary Care Provider Active Start: August 13, 2024 End: August 13, 2024 Dr. Payam Reyna MD Referring Provider Active Start: August 13, 2024 End: August 13, 2024 SAVANNAH WatersC Attending Provider Active Start: August 13, 2024 End: August 13, 2024 Team Status: Inactive Member Role/Relationship Status Dates Dr. Payam Reyna MD Primary Care Provider Active Start: August 13, 2024 End: August 13, 2024 Dr. Charles Ramos MD Attending Provider Active S tart: August 13, 2024 End: August 13, 2024 Team Status: Inactive Member Role/Relationship Status Dates Galina Horner WATER TREATMENT PLANT OPERATOR WATER TREATMENT PLANT OPERATOR-C Primary Care Provider Active Start: August 16, 2024 End: August 16, 2024 Galina Horner WATER TREATMENT PLANT OPERATOR WATER TREATMENT PLANT OPERATOR-C Attending Provider Active Start: August 16, 2024 End: August 16, 2024 Team Status: Inactive Member Role/Relationship Status Dates Dr. Payam Reyna MD Primary Care Provider Active Start: August 18, 2024 End: August 18, 2024 Dr. Payma Reyna MD Referring Provider Active Start: August 18, 2024 End: August 18, 2024 SAVANNAH WatersC Attending Provider Active Start: August 18, 2024 End: August 18, 2024 Team Status: Inactive Member Role/Relationship Status Dates Dr. Payam Reyna MD Primary Care Provider Active Start: August 18, 2024 End: August 18, 2024 Dr. Charles Ramos MD Attending Provider Active S tart: August 18, 2024 End: August 18, 2024 Team Status: Active Member Role/Relationship Status Dates Dr. Payam Reyna MD Primary Care Provider Active Start: August 30, 2024 Payam POPE MD Attending Provider Active Start: August 30, 2024 Team Status: Inactive Member Role/Relationship Status Dates Dr. Payam Reyna MD Primary Care Provider Active Start: September 03, 2024 End: September 03, 2024 Dr. Payam Reyna MD Referring Provider Active Start: September 03, 2024 End: September 03, 2024 SAVANNAH WatersC Attending Provider Active Start: September 03, 2024 End: September 03, 2024 Team Status: Inactive Member Role/Relationship Status Dates Dr. Payam Reyna MD Primary Care Provider Active Start: September 03, 2024 End: September 03, 2024 Dr. Charles Ramos MD Attending Provider Active S tart: September 03, 2024 End: September 03, 2024 Team Status: Inactive Member Role/Relationship Status Dates Dr. Payam Reyna MD Primary Care Provider Active Start: September 07, 2024 End: September 07, 2024 Dr. Payam Reyna MD Referring Provider Active Start: September 07, 2024 End: September 07, 2024 Juliet Parham NP-C Attending Provider Active Start: September 07, 2024 End: September 07, 2024 Team Status: Inactive Member Role/Relationship Status Dates Galina Horner W[employer]ATMENT [employer]ANT OPERATOR, WATER TREATMENT PLANT OPERATOR-C Primary Care Provider Active Start: September 14, 2024 Dr. Hiwot Abdullahi MD Attending Provider Active Start: September 14, 2024 Team Status: Active Member Role/Relationship Status Dates Galina Horner WATER TREATMENT PLANT OPERATOR, WATER TREATMENT PLANT OPERATOR-C Primary Care Provider Active Start: October 13, 2024 Carmella Deluca WATER TREATMENT PLANT OPERATOR-C Attending Provider Active Start: October 13, 2024 Carmella Deluca WATER TREATMENT PLANT OPERATOR-C Referring Provider Active Start: October 13, 2024 Team Status: Active Member Role/Relationship Status Dates Galina Horner WATER TREATMENT PLANT OPERATOR, WATER TREATMENT PLANT OPERATOR-C Primary Care Provider Active Start: October 22, 2024 Galina Horner WATER TREATMENT PLANT OPERATOR, WATER TREATMENT PLANT OPERATOR-C Referring Provider Active Start: October 22, 2024 Carmella Deluca WATER TREATMENT PLANT OPERATOR-C Attending Provider Active Start: October 22, 2024 Team Status: Inactive Member Role/Relationship Status Dates Galina Horner WATER TREATMENT PLANT OPERATOR, WATER TREATMENT PLANT OPERATOR-C Primary Care Provider Active Start: October 22, 2024 End: October 22, 2024 Dr. Charles Ramos MD Attending Provider Active S tart: October 22, 2024 End: October 22, 2024 Team Status: Inactive Member Role/Relationship Status Dates Galina Horner WATER TREATMENT PLANT OPERATOR, WATER TREATMENT PLANT OPERATOR-C Primary Care Provider Active Start: October 22, 2024 End: October 22, 2024 Galina Horner WATER TREATMENT PLANT OPERATOR, WATER TREATMENT PLANT OPERATOR-C Referring Provider Active Start: October 22, 2024 End: October 22, 2024 Carmella Deluca WATER TREATMENT PLANT OPERATOR-C Attending Provider Active Start: October 22, 2024 End: October 22, 2024 Team Status: Inactive Member Role/Relationship Status Dates Galina Horner WATER TREATMENT PLANT OPERATOR, WATER TREATMENT PLANT OPERATOR-C Primary Care Provider Active Start: September 20, 2024 End: September 20, 2024 Galina Horner WATER TREATMENT PLANT OPERATOR, WATER TREATMENT PLANT OPERATOR-C Attending Provider Active Start: September 20, 2024 End: September 20, 2024 Team Status: Inactive Member Role/Relationship Status Dates Dr. Payam Reyna MD Referring Provider Active Start: September 24, 2024 End: September 24, 2024 Carmella Deluca , WATER TREATMENT PLANT OPERATOR-C Attending Provider Active Start: September 24, 2024 End: September 24, 2024 Galina Horner WATER TREATMENT PLANT OPERATOR, WATER TREATMENT PLANT OPERATOR-C Primary Care Provider Active Start: September 24, 2024 End: September 24, 2024 Team Status: Inactive Member Role/Relationship Status Dates Galina Horner WATER TREATMENT PLANT OPERATOR, WATER TREATMENT PLANT OPERATOR-C Primary Care Provider Active Start: September 24, 2024 End: September 24, 2024 Dr. Charles Ramos MD Attending Provider Active S tart: September 24, 2024 End: September 24, 2024 Team Status: Active Member Role/Relationship Status Dates Galina Horner WATER TREATMENT PLANT OPERATOR, WATER TREATMENT PLANT OPERATOR-C Primary Care Provider Active Start: October 04, 2024 Payam POPE MD Attending Provider Active Start: October 04, 2024 Team Status: Active Member Role/Relationship Status Dates Galina Horner WATER TREATMENT PLANT OPERATOR, WATER TREATMENT PLANT OPERATOR-C Primary Care Provider Active Start: October 13, 2024 Carmella Deluca WATER TREATMENT PLANT OPERATOR-C Attending Provider Active Start: October 13, 2024 Carmella Deluca WATER TREATMENT PLANT OPERATOR-C Referring Provider Active Start: October 13, 2024 Team Status: Inactive Member Role/Relationship Status Dates Galina Horner WATER TREATMENT PLANT OPERATOR, WATER TREATMENT PLANT OPERATOR-C Primary Care Provider Active Start: October 22, 2024 End: October 22, 2024 Galina Horner WATER TREATMENT PLANT OPERATOR, WATER TREATMENT PLANT OPERATOR-C Referring Provider Active Start: October 22, 2024 End: October 22, 2024 Carmella Deluca WATER TREATMENT PLANT OPERATOR-C Attending Provider Active Start: October 22, 2024 End: October 22, 2024 Team Status: Inactive Member Role/Relationship Status Dates Galina Horner WATER TREATMENT PLANT OPERATOR, WATER TREATMENT PLANT OPERATOR-C Primary Care Provider Active Start: October 22, 2024 End: October 22, 2024 Dr. Charles Ramos MD Attending Provider Active S tart: October 22, 2024 End: October 22, 2024 Team Status: Inactive Member Role/Relationship Status Dates Galina Horner WATER TREATMENT PLANT OPERATOR, WATER TREATMENT PLANT OPERATOR-C Primary Care Provider Active Start: September 22, 2024 End: September 22, 2024 Galina Horner WATER TREATMENT PLANT OPERATOR, WATER TREATMENT PLANT OPERATOR-C Attending Provider Active Start: September 22, 2024 End: September 22, 2024 Team Status: Inactive Member Role/Relationship Status Dates Dr. Payam Reyna MD Referring Provider Active Start: September 24, 2024 End: September 24, 2024 Carmella Deluca NP-C Attending Provider Active Start: September 24, 2024 End: September 24, 2024 Galina Horner WATER TREATMENT PLANT OPERATOR, WATER TREATMENT PLANT OPERATOR-C Primary Care Provider Active Start: September 24, 2024 End: September 24, 2024 Team Status: Inactive Member Role/Relationship Status Dates Galina Horner WATER TREATMENT PLANT OPERATOR, WATER TREATMENT PLANT OPERATOR-C Primary Care Provider Active Start: September 24, 2024 End: September 24, 2024 Dr. Charles Ramos MD Attending Provider Active S tart: September 24, 2024 End: September 24, 2024 Team Status: Active Member Role/Relationship Status Dates Galina Horner WATER TREATMENT PLANT OPERATOR, WATER TREATMENT PLANT OPERATOR-C Primary Care Provider Active Start: October 04, 2024 Payam POPE MD Attending Provider Active Start: October 04, 2024 Team Status: Active Member Role/Relationship Status Dates Galina Horner WATER TREATMENT PLANT OPERATOR, WATER TREATMENT PLANT OPERATOR-C Primary Care Provider Active Start: October 13, 2024 Carmella Deluca NP-C Attending Provider Active Start: October 13, 2024 Carmella Deluca NP-C Referring Provider Active Start: October 13, 2024 Team Status: Inactive Member Role/Relationship Status Dates Galina Horner WATER TREATMENT PLANT OPERATOR, WATER TREATMENT PLANT OPERATOR-C Primary Care Provider Active Start: October 22, 2024 End: October 22, 2024 Galina Horner NP, WATER TREATMENT PLANT OPERATOR-C Referring Provider Active Start: October 22, 2024 End: October 22, 2024 Carmella Deluca WATER TREATMENT PLANT OPERATOR-C Attending Provider Active Start: October 22, 2024 End: October 22, 2024 Team Status: Inactive Member Role/Relationship Status Dates Galina Horner WATER TREATMENT PLANT OPERATOR, WATER TREATMENT PLANT OPERATOR-C Primary Care Provider Active Start: October 22, 2024 End: October 22, 2024 Dr. Charles Ramos MD Attending Provider Active S tart: October 22, 2024 End: October 22, 2024 Goals (unrecognized section and content) Goals may [...] BE BASED ON THE PRIMARY CLINICAL RECORDS. [employer] [facility]. provides no warranty or guarantee of the accuracy or completeness of information in this document.
[2024-11-03 08:01] LABS: AST(SGOT) 34 U/L (<=31); Alanine Aminotransfer ALT/SGPT 34 U/L (<=34); Albumin, Serum 3.5 g/dL (3.4-4.8); Alkaline Phosphatase 61 U/L (35-104); Bilirubin, Direct 0.42 mg/dL (0.00-0.30); Globulin 3.4 g/dL (2.2-4.2)
== END ==
LOC: OLS.WHLTSB 05:00
PROVIDERS: PCP Nurse Practitioner Adult Health; Visit Provider Internal Medicine
DX: I25.10 Atherosclerotic heart disease of native coronary artery without angina pectoris (principal); H10.45 Other chronic allergic conjunctivitis; M81.0 Age-related osteoporosis without current pathological fracture; K52.839 Microscopic colitis, unspecified
CPT/HCPCS: 36415; 80076

== ENCOUNTER → 2024-11-29 05:00 | Outpatient (REF) | payer MEDICARE, BC, SELFPAY ==
--- OUTSIDE RECORDS SUMMARY | 2024-11-29 04:29 | XMS RPT_ITS | CCD ---
Author Organization [facility] Care Team Providers Care Brokerage Manager Name Role Phone Galina Iraheta MD Primary Care Provider 13, Pharmacist Unavailable Galina Iraheta MD Primary Care Provider Dr. Galina Iraheta Primary Care Provider [place] HEALTH POLICY ANALYST, HEALTH POLICY ANALYST-C Galina Attending Provider BASILIA Jerome Attending Unavailable GALINA IRAHETA Referring Unavailable GALINA IRAHETA Primary Care Unavailable BASILIA HERNÁNDEZ Attending Unavailable JAYDE HEBERT Referring Unavailable GALINA IRAHETA Primary Care Unavailable Dr. Galina Iraheta Primary Care Provider [place] HEALTH POLICY ANALYST, HEALTH POLICY ANALYST-C Galina Attending Provider Galina Pedro MD Primary Care Provider Lindai Sal SEWELL Unavailable Dr. Galina Iraheta Primary Care Provider [place] HEALTH POLICY ANALYST, HEALTH POLICY ANALYST-C Galina Attending Provider Dr. Galina Pedro Primary Care Provider [place] HEALTH POLICY ANALYST, HEALTH POLICY ANALYST-C Galina Attending Provider Galina Pedro MD Primary Care Provider Dr. Galina Iraheta Primary Care Provider [place] HEALTH POLICY ANALYST, HEALTH POLICY ANALYST-C Galina Attending Provider Dr. Galina Pedro Primary Care Provider [place] HEALTH POLICY ANALYST, HEALTH POLICY ANALYST-C Galina Attending Provider Payam Reyna MD Primary Care Provider Dr. Galina Iraheta Primary Care Provider Siri HEALTH POLICY ANALYST, HEALTH POLICY ANALYST-C Galina Attending Provider Dr. Galina Iraheta Primary Care Provider Sir[place] HEALTH POLICY ANALYST, HEALTH POLICY ANALYST-C Glaina Attending Provider Maribell PANG, Payam Hilario Primary Care Provider Maribell PANG, Payam Hilario Primary Care Provider Galina Iraheta MD Primary Care Provider 13, Pharmacist Unavailable Alistair PANG, Dr. Mojica Primary Care Provider Maribell PANG, Payam Attending Provider Unavailtasia Reyna MD, Payam Referring Provider Unavailtasia Horner HEALTH POLICY ANALYST-CGalina Attending Provider Alistair PANG, Dr. Mojica Primary Care Provider Maribell PANG, Payam Attending Provider Unavailtasia Reyna MD, Dr. Hare Attending Provider Alistair PANG, Dr. Mojica Primary Care Provider Maribell PANG, Payam Attending Provider Unavailtasia Abdullahi MD, Dr. Mi Attending Provider Bradly PANG, Dr. iM Referring Provider Maribell PANG, Dr. Hare Primary Care Provider Maribell PANG, Dr. Hare Referring Provider Yosi PRECIADO-CCarmella Attending Provider Richard PANG, Dr. Soto Attending Provider Alistair PANG, Dr. Mojica Primary Care Provider Payam Reyna MD Attending Provider Aramndo Reyna MD, Payam Referring Provider Unavailtasia Parham NP-CJuliet Attending Provider Alistair PANG, Dr. Mojica Primary Care Provider Payam Reyna MD Attending Provider Unavaila ble [place] HEALTH POLICY ANALYST-C, Galina Attending Provider Dr. Sung Torres DO Emergency Provider [place] HEALTH POLICY ANALYST-C, [facility] Primary Care Provider Dr. Sung Torres DO Attending Provider Alistair PANG, Dr. Mojica Primary Care Provider Payam Reyna MD Attending Provider Unavaila marcelino Horner HEALTH POLICY ANALYST-C, [facility] Primary Care Provider Alistair PANG, Dr. Mojica Primary Care Provider Payam Reyna MD Attending Provider Unavaila marcelino Abdullahi MD, Dr. Mi Attending Provider Bradly PANG, Dr. Mi Referring Provider Deluca HEALTH POLICY ANALYST-C, Carmella Referring Provider [place] HEALTH POLICY ANALYST-C, Galina Referring Provider Bradly PANG, Dr. Mi Attending Provider Bradly PANG, Dr. Mi Referring Provider Alistair PANG, Dr. Mojica Primary Care Provider Payam Reyna MD Attending Provider Unavaila marcelino Reyna MD, Dr. Hare Attending Provider Oleghe OLS, Efewongbe Attending Unavailabl e [place] HEALTH POLICY ANALYST, [facility] Primary Care Unavailable Oleghe OLS, Efewongbe Attending Unavailabl e Ganta, Galina Primary Care Unavailable Oleghe OLS, Efmerylongbe Attending Unavailabl e Ganta, Galina Primary Care Unavailable Oleghe OLS, Efewongbe Attending Unavailabl e Ganta, Galina Primary Care Unavailable [place] HEALTH POLICY ANALYST, [facility] Primary Care Unavailable Sung Torres Attending Unavailable Oleghe OLS, Efbrunildabe Attending Unavailabl e Ganta, Galina Primary Care [...] Unavailabl e Ganta, Galina Primary Care Unavailable Carmella Deluca Attending Unavailable Carmella Deluca Referring Unavailable [place] HEALTH POLICY ANALYST, Galina Primary Care Unavailable Oleghe OLS, Efewongbe Attending Unavailabl e [place] HEALTH POLICY ANALYST, Galina Primary Care Unavailable Oleghe OLS, Efewongbe Attending Unavailabl e [place] HEALTH POLICY ANALYST, Galina Primary Care Unavailable Oleghe OLS, Efewongbe Attending Unavailabl e Ganta, Galina Primary Care Unavailable [place] HEALTH POLICY ANALYST, Galina Attending Unavailable Ganta, Galina Primary Care Unavailable Oleghe OLS, Efewongbe Referring Unavailabl e Oleghe OLS, Efewongbe Attending Unavailabl e Ganta, Galina Primary Care Unavailable [place] HEALTH POLICY ANALYST, Galina Primary Care Unavailable Oleghe, Efewongbe Attending Unavailable [place] HEALTH POLICY ANALYST, Galina Attending Unavailable Ganta, Galina Primary Care Unavailable Ganta, Galina Primary Care Unavailable Oleghe, Efewongbe Attending Unavailable Richard, Charles Attending Unavailable Oleghe, Efewongbe Primary Care Unavailable Carmella Deluca Attending Unavailable Oleghe, Efewongbe Primary Care Unavailable Oleghe, Efewongbe Referring Unavailable Charles Ramos Attending Unavailable Oleghe, Efewongbe Primary Care Unavailable Carmella Deluca Attending Unavailable Oleghe, Efewongbe Primary Care Unavailable Oleghe, Efewongbe Referring Unavailable Oleghe, Efewongbe Primary Care Unavailable Juliet Parham Attending Unavailable Oleghe, Efewongbe Referring Unavailable Charles Ramos Attending Unavailable Oleghe, Efewongbe Primary Care Unavailable [place] HEALTH POLICY ANALYST, Galina Attending Unavailable Oleghe, Efewongbe Primary Care Unavailable Carmella Deluca Attending Unavailable Oleghe, Efewongbe Primary Care Unavailable Oleghe, Efewongbe Referring Unavailable Carmella Deluca Attending Unavailable [place] HEALTH POLICY ANALYST, [facility] Primary Care Unavailable Oleghe, Efewongbe Referring Unavailable [place] HEALTH POLICY ANALYST, [facility] Primary Care Unavailable Charles Ramos Attending Unavailable [place] HEALTH POLICY ANALYST, Galina Attending Unavailable [place] HEALTH POLICY ANALYST, [facility] Primary Care Unavailable Carmella Deluca Attending Unavailable [place] HEALTH POLICY ANALYST, Galina Referring Unavailable [place] HEALTH POLICY ANALYST, [facility] Primary Care Unavailable [place] HEALTH POLICY ANALYST, [facility] Primary Care Unavailable Charles Ramos Attending Unavailable [place] HEALTH POLICY ANALYST, Galina Attending Unavailable [place] HEALTH POLICY ANALYST, [facility] Primary Care Unavailable [place] HEALTH POLICY ANALYST, Galina Attending Unavailable [place] HEALTH POLICY ANALYST, [facility] Primary Care Unavailable [place] HEALTH POLICY ANALYST, Galina Referring Unavailable [place] HEALTH POLICY ANALYST, [facility] Primary Care Unavailable Juliet Parham Attending Unavailable Oleghe OLS, Efewongbe Attending Unavailabl e Ganta, Galina Primary Care Unavailable Oleghe, Efewongbe Primary Care Unavailable Hiwot Abdullahi Attending Unavailable Hiwot Abdullahi Referring Unavailable THALIA MONTERROSO Attending Unavailable SELF Referring Unavailable OLEGHE, EFEWONGBE B Primary Care Unavailable SELF Referring Unavailable OLEGHE, EFEWONGBE B Primary Care Unavailable JOHNY MONTERROSOTH Attending Unavailable SELF Referring Unavailable OLEGHE, EFEWONGBE B Primary Care Unavailable ARREOLA, CASSIDY Referring Unavailable OLEGHE, EFEWONGBE B Primary Care Unavailable CASSIDY ARREOLA Attending Unavailable ARREOLA, CASSIDY Referring Unavailable OLEGHE, [...] Unavailable OLEGHE, EFEWONGBE B Primary Care Unavailable Allergies Allergy Classification Reported Allergen(s) Allergy Type Date of Onset Reaction(s) Facility (20 sources) Angiotensin-converting enzyme inhibitor agent; Translations: [DESMOND INHIBITORS] Drug Intolerance Cough [facility] (20 sources) Cephalexin; Translations: [CEPHALEXIN] Drug Allergy Other: See Comments, [facility] (20 sources) Clindamycin; Translations: [CLINDAMYCIN] Drug Allergy Other: See Comments, [facility] (20 sources) cyclobenzaprine; Translations: [CYCLOBENZAPRINE] Drug Allergy 005 Contraindicat ion-[facility] (20 sources) Diclofenac / miSOPROStol; Translations: [DICLOFENAC-MISOPROSTO L] Drug Allergy 008 Diarrhea [facility] (20 sources) hydroCHLOROthiazide; Translations: [HYDROCHLOROTHIAZIDE] Drug Allergy Mental Status Change [facility] (20 sources) Lisinopril; Translations: [LISINOPRIL] Drug Allergy Unknown [facility] (20 sources) metroNIDAZOLE; Translations: [METRONIDAZOLE HCL] Drug Allergy Mental Status Change, Shortness of Breath [facility] (20 sources) Naproxen; Translations: [NAPROXEN] Drug Allergy Other: See Comments [facility] (20 sources) Naproxen; Translations: [NAPROXEN SODIUM] Drug Allergy Contraindicat ion-[facility] (20 sources) oxybutynin; Translations: [OXYBUTYNIN] Drug Allergy Other: See Comments [facility] (20 sources) PARoxetine; Translations: [PAROXETINE] Drug Allergy Contraindicat ion-[facility] (20 sources) prednisoLONE / Sulfacetamide; Translations: [SULFACETAMIDE-PREDNIS OLONE] Drug Allergy 011 Cough [facility] (20 sources) Sulfonamides (Antibiotic); Translations: [SULFA (SULFONAMIDE ANTIBIOTICS)] Drug Allergy Unknown [facility] Work Phone: (20 sources) adhesives [Other] Propensity to adverse reactions Other: See Comments [facility] (20 sources) Adhesive agent; Translations: [adhesive] Allergy to substance Unknown [facility] (20 sources) cyclobenzaprine; Translations: [cyclobenzaprine HCl] Drug Allergy Unknown [facility] (20 sources) Diclofenac; Translations: [diclofenac sodium] Drug Allergy Unknown [facility] (20 sources) metroNIDAZOLE Drug Allergy Unknown [facility] (20 sources) miSOPROStol Drug Allergy Unknown [facility] (20 sources) PARoxetine; Translations: [paroxetine HCl] Drug Allergy [facility] (20 sources) prednisoLONE; Translations: [prednisolone acetate] Drug Allergy Unknown [facility] (20 sources) Sulfacetamide; Translations: [sulfacetamide sodium] Drug Allergy Unknown [facility] (20 sources) Angiotensin-converting enzyme inhibitor agent Drug Intolerance Cough [facility] (20 sources) Angiotensin Converting Enzyme (Desmond) Inhibitors Allergy to substance Unknown [facility] Comment on above: ERROR (1 source) OTHER; Translations: [OTHER] Propensity to adverse reactions (disorder) 008 [facility] Other [place] [facility] (18 sources) Hydroxychloroquine; Translations: [HYDROXYCHLOROQUINE] Drug Allergy 024 Rash [facility] (1 source) Angiotensin Converting Enzyme (Desmond) Inhibitors Drug allergy (disorder) 025 [facility] Repository (1 source) hydroCHLOROthiazide Drug Allergy 025 [facility] Repository (1 source) Lisinopril Drug Allergy [facility] Repository (1 source) metroNIDAZOLE Drug Allergy 025 [facility] Repository (1 source) miSOPROStol Drug Allergy 025 [facility] Repository (1 source) Naproxen Drug Allergy [facility] Repository Medications Current Medications Medication Drug [...] Comment on above: Take 1 tablet by [facility] every 8 hours as needed for pain [...] on above: Take 5,000 mcg by mo [facility] once daily. Calcium (4 sources) Phosphate Binder, Calcium take 600 mg by mouth twice daily CALCIUM ORAL Take 600 mg by mouth two times a day. Active calcium ascorbate 500 mg oral tablet (9 sources) Start: 09-24-2024 take 1 tablet by [...] 12:00am calcium carbonate 1500 mg oral tablet (9 sources) Start: 09-24-2024 take 1 tablet by [...] Take 1 tablet by natalie once daily. Dlbnaff-Era-Rbw F6-X7-Zzlwzxww (Citracal Plus) 600-95-1-125 nj-it-km-unit Tablet (20 sources) Start: 08-20-2021 take 1 tablet by mouth twice daily Lhdhvfl-Oxc-Vxi N9-W9-Qkdahcrw (Citracal Plus) 262-43-0-125 ca-ej-kq-unit Tablet Active 1 TABLET PO TWICE A DAY August 20, 2021 8:15am Start: 08-20-2021 End: 08-13-2024 Xcurojb-Lir-Wop T1-A5-Nvsrey ls (Citracal Plus) 340-40-3-125 ug-bd-wz-unit Tablet Discontinued 1 {tbl} PO TWICE A DAY August 20, 2021 12:00am August 13, 2024 2:28pm Start: 08-20-2021 Yfhxjoo-Uqc-Id t U2-H2-Itcbujnz (Citracal Plus) 377-45-6-125 mn-if-nl-unit Tablet Active 1 {tbl} PO TWICE A DAY August 20, 2021 12:00am Start: 08-20-2021 take 1 tablet by natalie th twice daily Mzkuqnw-Zcu-Hlh B9-O0-Wqjuriep (Citracal Plus) 739-02-0-125 ro-ld-fw-unit Tablet Active 1 TABLET PO TWICE A DAY August 19, 2021 11:00pm Start: 08-20-2021 take 1 tablet by natalie twice daily Zuapmcc-Vsn-Ysh W2-D4-Xoluoata (Citracal Plus) 520-47-3-125 zz-gf-yx-unit Tablet Active 1 TABLET PO TWICE A [...] Comment on above: [facility] cholecalciferol 0.01 mg oral capsule (20 sources) [...] 2024 2:59pm take 2 tablets by mo [facility] twice daily cholecalciferol (VITAMIN D-3) 400 unit [...] 1,000 Units by mouth once daily. Copper (4 sources) Copper-containing Intrauterine Device take 2 mg [...] 1 ml denosumab 60 mg/ml prefilled syringe (20 sources) RANK Ligand Inhibitor Start: 09-07-2024 Denosumab [...] needed. docusate sodium 50 mg / sennosides, halfway 8.6 mg oral capsule (20 sources) Start: [...] 1 tablet by natalie th once daily. estradiol 0.1 mg/ml vaginal cream (20 sources) Estrogen Start: 11-22-2024 Estradiol 0.01 % (0.1 mg/gram) cream Active 1 NMA VAGINAL .Q3Days November 22, 2024 12:00am for 14 days Start: 03-21-2023 End: 08-13-2024 Estradiol (Estrace) 0.01 % ( 0.1 mg/gram) cream Discontinued 1 g VAGINAL EVERY [...] days as needed. PRN FOR D RYNESS ferrous gluconate 324 mg oral tablet (20 sources) Start: 2 End: 5 take 1 tablet by mouth once daily Ferrous Gluconate 324 mg (37.5 mg iron) tablet Active 324 mg PO daily September 07, 2024 12:00am Comment on above: Take 324 mg by mouth . Take 324 mg by mouth once daily. fluconazole 150 mg oral tablet (1 source) Azole Antifungal Start: 2 End: 2 take 1 tablet by mouth once daily fluconazole (DIFLUCAN) 150 mg tablet Take 1 tablet by mouth once daily for 1 day. 1 tablet 0 07/03/2021 07/04/2021 Active Comment on above: Take 1 tablet by [facility] once daily for 1 day. fluticasone propionate 0.05 mg/actuat metered dose nasal spray (20 sources) Corticosteroid Start: 2 End: 5 take 50 ug nasal route once daily Fluticasone Propionate (Flonase Allergy Relief) 50 mcg/actuation spray,suspension Active 2 NMA INTRANASAL daily September 07, 2024 12:00am administer into each nostril Start: 08-20-2021 Fluticasone Pr opionate (Flonase Allergy Relief) 50 mcg/actuation [place],Suspension Active 1 SPRAY INTRANASAL DAILY August 20, [...] tablet by natalie th every other day. Glucos Sul 4nde-Bxw-Kxnde-C-Mn (Glucosamine Chondroitin) 550-30-1 mg Capsule (13 sources) Start: 08-20-2021 take 1 capsule by mouth at bedtime Glucos Sul 6fvv-Tha-Ncmpy-C-M n (Glucosamine Chondroitin) 550-30-1 mg Capsule Active 1 CAP PO AT BEDTIME August 20, 2021 8:15am Start: 08-20-2021 take 1 capsule by mo ut at bedtime Glucos Sul 1qva-Xfx-Bqmtr-C-Mn (Glucosamine Chondroitin) 550-30-1 mg Capsule Active 1 CAP PO AT BEDTIME August 19, 2021 11:00pm Start: 08-20-2021 take 1 capsule by mo ut at bedtime Glucos Sul 1tsf-Pbq-Qjjsr-C-Mn (Glucosamine Chondroitin) 550-30-1 mg Capsule Active 1 CAP PO AT BEDTIME August 20, 2021 12:00am iv contrast (will be provide d with radiology test) (1 source) Start: 02-24-2024 End: 02-25-2024 iv contrast (will be provide d with radiology test) Indications: Iron deficiency anemia [...] Paracasei,B. Lactis (16 sources) Start: 08-30-2014 L.Acidoph, Par acasei,B. Lactis Active [...] Comment on above: Take 1 tablet by [facility] twice daily with meals. Methylcellulose (14 sources) [...] Discontinued (Erroneous entry) take 2 tablets by [facility] once daily METHYLCELLULOSE (CITRUCEL ORAL) Take 2 tablets by mouth once daily. 0 Active Comment on above: Take 2 tablets by [facility] once daily. 24 hr metoprolol succinate 25 [...] 2021 11:00pm OLANZapine 2.5 mg oral tablet (9 sources) Atypical Antipsychotic Start: 09-24-2024 take 1 tablet by mouth at bedtime Olanzapine 2.5 mg tablet Active 2.5 mg PO AT BEDTIME September 24, 2024 12:00am omeprazole 40 mg delayed release oral capsule (20 sources) Proton Pump Inhibitor Start: 08-20-2021 End: 09-07-2024 take 2 capsules [...] September 07, 2024 12:00am Start: 03-14-2021 take 2 capsules by m [...] mo uth once daily. polyethylene glycol 3350 46948 mg powder for oral solution (20 sources) [...] Start: 08-27-2024 take 3 tablets by mo [facility] once daily predniSONE (DELTASONE) 5 mg tablet [...] 3 days, 5 mg x 3 days traMADol hydrochloride 50 mg oral tablet (20 sources) Opioid Agonist Start: 11-17-2024 take 1 tablet by mouth four times daily Tramadol 50 mg tablet Active 50 mg PO .qid 120 30 0 November 17, 2024 8:48am December 16, 2024 12:00am Start: 09-20-2024 End: 11-12-2024 take 1 tablet by mouth four times daily Tramadol 50 mg tablet Discontinued 50 mg PO .qid 120 30 0 October 13, 2024 11:15am November 11, 2024 12:00am November 12, 2024 12:07am Start: 09-07-2024 End: 09-24-2024 take 1 tablet [...] Start: 03-26-2018 Triamcinolone Acetonide (Nasacort Aq Nasal [place]) 1 SPRAY Nasal.Sry Active 2 SPRAY NASAL DAILY March 26, 2018 11:19am Start: 03-26-2018 Triamcinolone Acetonide (Nasacort Aq Nasal [place]) 1 SPRAY aerosol,spray Active 2 SPRAY NASAL NEEDED March 26, 2018 1:00am Start: 03-05-2016 End: 08-13-2024 Triamcinolone Acetonide (Ángel acort Aq Nasal [place]) 1 SPRAY aerosol,spray Discontinued 2 NMA NASAL [...] (11 sources) Tumor Necrosis Factor Nahun Start: 024 End: adalimumab (HUMIRA,CF, PEN) 40 mg/0.4 mL pen kit Inject 40 mg (1 pen) subcutaneously every 2 weeks. 2 Each 5 07/04/2023 11/14/2023 Discontinued Comment on above: Inject 40 mg (1 pen) subcutaneously every 2 weeks. [id number] 200 actuat albuterol 0.09 mg/actuat metered dose inhaler (8 sources) beta2-Adrenergic Agonist Start: 022 take 2 puff(s) by inhalation every six [...] sources) Factor Xa Inhibitor Start: 023 End: 025 take 1 tablet by mouth twice daily Apixaban (Eliquis) 5 mg tablet Discontinued 5 mg PO TWICE A DAY 1 0 September 18, 2022 12:00am August 13, 2024 2:28pm Comment on above: Take 1 tablet by [facility] twice daily. ascorbic acid 500 mg oral tablet (20 sources) Vitamin C Start: 022 End: take 1 tablet by mouth once [...] Comment on above: Take 1 tablet by [facility] every 12 hours for 7 days. diphenhydrAMINE [...] Discontinued Start: 08-30-2014 take 1 capsule by [facility] once daily Docusate Sodium (Colace) 100 MG capsule Active 100 MG PO DAILY August 29, 2014 11:00pm Comment on above: Take 1 capsule by [facility] twice daily as needed for Constipation. famotidine 40 mg oral tablet (1 source) [...] oral tablet (5 sources) Start: 0 End: take 3 tablets by mouth once daily folic acid 1 mg tablet Take 3 tablets by mouth once daily. 270 tablet 3 10/27/2020 01/30/2021 Discontinued Start: 08-30-2014 take 1 mg by mouth once daily Folic Acid Active 1 MG PO DAILY@0800 August 30, 2014 10:14am gabapentin 300 mg oral capsule (20 sources) Anti-epileptic Agent Start: 09-07-2024 End: 11-22-2024 take 1 capsule by mouth at bedtime Gabapentin 300 mg capsule Discontinued 300 mg PO AT BEDTIME September 07, 2024 12:00am November 22, 2024 11:10am Start: 06-28-2019 End: 03-14-2022 take 0.5 tablet [...] Take 0.5 tablets by mouth once daily. glucosamine/msm/ch ondroitin A (GLUCOSAMINE-CHOND R-MSM ORAL) (11 sources) End: 07-09-2021 take 1 capsule by mouth once daily glucosamine/msm/chondr oitin A (YQXLTHTCAMI-QRSGOI-PL M ORAL) Take 1 capsule by mouth once daily. 07/09/2021 Discontinued (Erroneous entry) End: 07-09-2021 take 1 capsule by mouth once daily glucosamine/msm/chondroitin A (TMWJILKUPXT-DSKOZF-DCU ORAL) Take 1 capsule by mouth once daily. 0 07/09/2021 Discontinued (Erroneous entry) take 1 capsule by [facility] once daily glucosamine/msm/chondroitin A (GHJYNTYJVSB-ISCDYH-YYX ORAL) Take 1 capsule by mouth once daily. 0 Active Comment on above: Take 1 capsule by [facility] once daily. guaiFENesin 20 mg/ml oral solution (20 sources) Start: 03-06-2022 End: 11-22-2024 take 200 mg by mouth every four hours as needed for cough Guaifenesin 100 mg/5 mL Liquid Discontinued 200 mg PO Q4H as needed for Cough March 06, 2022 1:00am November 22, 2024 11:10am Comment on above: Take 200 mg by mouth every 4 hours as needed. Handicapped placcard (20 sources) Start: 04-22-2022 Handicapped [...] Comment on above: Take 1 tablet by [facility] two times a day. inFLIXimab-abda 200 mg [...] 2 tablets vaginally qhs before the procedure modafinil 100 mg oral tablet (20 sources) Sympathomimetic-lik e Agent Start: 09-20-2024 End: 10-20-2024 take 0.5 tablet by mouth once daily in the morning as needed Modafinil 100 mg tablet Discontinued 100 mg PO EVERY MORNING as needed for attention disorder September 20, 2024 1:04pm October 19, 2024 12:00am October 20, 2024 12:07am 1/2 tab (50mg) daily as needed. (No more than 5 days a week). Start: 10-18-2022 End: 11-16-2024 Modafinil 100 mg tablet Disc ontinued 100 mg PO As Directed November 11, 2024 12:00am December 10, 2024 12:00am November 16, 2024 9:45am Give Sundays, Wednesdays, and Fridays. Comment on above: TAKE 1/2 to 1 TABLET BY MOUTH EVERY DAY as needed for hypersomnia MULTIVITAMIN TAB (20 sources) Start: 07-09-2021 End: [...] mg tablets,dose pack Discontinued 0 PO .COMPLEX 30 October 18, 2021 12:00am August 13, 2024 [...] Comment on above: Take 1 capsule by [facility] twice daily with meals for 7 days. Take 1 capsule by [facility] twice daily with meals for 5 days. Take 1 capsule by [facility] twice daily for 5 days. Take 1 capsule by [facility] twice daily for 10 days. perflutren lipid [...] 08/18/2021 Start: 06-17-2021 take 2 tablets by [facility] every eight hours as needed phenazopyridine (PYRIDIUM) 100 mg tablet Take 2 tablets by mouth three times daily as needed. 6 tablet 0 06/17/2021 Active Comment on above: Take 2 tablets by [facility] three times daily as needed. Take 1 tablet by [facility] three times daily as needed for up to 5 days. senna/docusate sodium (SENNA-C PLUS ORAL) (20 sources) End: 11-23-2024 take 8.6 mg by mouth once daily senna/docusate sodium (SENNA-C PLUS ORAL) Take 8.6 mg by mouth once daily. 11/23/2024 Discontinued take 8.6 mg by mouth once daily senna/docusate sodium (SENNA-C PLUS ORAL) Take 8.6 mg by mouth once daily. Active take 8.6 mg by mouth once daily senna/docusate sodium (SENNA-C PLUS ORAL) Take 8.6 mg by mouth once daily. 0 Active Comment on above: Take 8.6 mg by mouth once daily. 125 ml sodium chloride 9 mg/ml prefilled [...] 1 MG tablet Active 1.5 MG PO [facility] August 30, 2014 10:14am Start: 08-30-2014 Warfarin (Coum mary) 1 MG tablet Active 2 MG PO August 29, 2014 11:00pm Start: 08-30-2014 Warfarin (Coum mary (Pbkc)) 3 MG tablet Active 1 [facility] 29, 2014 11:00pm Comment on above: [...] disease (2 sources) Atherosclerotic heart disease of [place] coronary artery without angina pectoris; Translations: [Atherosclerotic heart disease of [place] coronary artery without angina pectoris] Onset: 5 [...] Onset: 5 Chronic Open wounds of extremities (10 sources) Tear of skin; Translations: [Laceration without foreign body of right elbow, initial encounter] 09-14-2024 Episodic Osteoarthritis (20 sources) Bilateral shoulder osteoarthritis; Translations: [Primary osteoarthritis, right shoulder] Onset: 1 07-25-2020 Chronic Osteoporosis (20 sources) Senile osteoporosis; Translations: [Age-related osteoporosis without current pathological fracture] Onset: 4 11-14-2023 Chronic Other aftercare (20 sources) Anticoagulant effect; Translations: [alf (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 anticoagulants] 08-08-2019 Episodic Other aftercare (2 sources) Device in situ; Translations: [Encounter for adjustment and management of vascular access device] 09-24-2022 Episodic Other aftercare (5 sources) Drug therapy finding; Translations: [alf (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 systemic steroids] 06-06-2023 Episodic [...] fecal abnormalities] 02-24-2024 Episodic Other gastrointestinal disorders (20 sources) Altered bowel function; Translations: [Change in [...] Onset: 1 02-09-2021 Chronic Other liver diseases (18 sources) Hepatic sclerosis; Translations: [Hepatic sclerosis] 08-13-2024 [...] head, initial encounter] 08-08-2019 Episodic Thyroid disorders (9 sources) Hypothyroidism; Translations: [Hypothyroidism, unspecified] 09-22-2024 Chronic Unclassified (7 sources) S52.602A - Unspecified fracture of lower [...] or cholecystitis without obstruction] Onset: 2 Episodic Cardiac dysrhythmias (20 sources) Palpitations; Translations: [Palpitations] Onset: 6 Resolved: 2 02-17-2012 Episodic Deficiency and other anemia (20 sources) Anemia; Translations: [Anemia, unspecified] Onset: 2 08-13-2021 Episodic Deficiency and other anemia (2 sources) [...] sources) Long-term current use of anticoagulant; 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] Onset: 5 03-22-2019 [...] 04-14-2013 Episodic Other gastrointestinal disorders (1 source) Diarrhea, [...] 04-14-2013 Episodic Residual codes; unclassified (1 source) Family [...] Reference Range Facility Gastroenterology Visit Repor ton 11-22-2024 Gastroenterology Visit Report [facility] [address] [place] [address] OFFICE VISIT Date of Service: 11/22/24 MR#: [id number] Acct: [id number] Name: CHRISTIAN LANDRUM Rep #: [id number] : 1935 Provider: OLIVE agrawal Age/Sex: 89/F Location: [facility] [place] Status: Signed Intake Vital Signs 10/22/24 13:55 11/22/24 11:22 Height 5 ft 4 in 5 ft 4 in Weight: 173 lb 4 oz BMI 29.7 BP 147/74 H Respiration 16 Pulse 72 Temp 98.5 F Temp Source Temporal Pulse Oximetry (%) 95 Oxygen Delivery Method room air Intake Visit Reasons: Colitis Chief Complaint: follow-up 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 Required: No Accompanied by: Daughter Is patient in pain?: No Allergies DESMOND Inhibitors Allergy (Verified 11/22/24 11:00) Unknown adhesive Allergy (Verified 11/22/24 11:00) Unknown cyclobenzaprine HCl (From Flexeril) Allergy (Verified 11/22/24 11:00) Unknown diclofenac sodium (From Arthrotec) Allergy (Verified 11/22/24 11:00) Unknown hydrochlorothiazide Allergy (Verified 11/22/24 11:00) Unknown lisinopril (From Zestril) Allergy (Verified 11/22/24 11:00) Unknown metronidazole (From Flagyl) Allergy (Verified 11/22/24 11:00) Unknown misoprostol (From Arthrotec) Allergy (Verified 11/22/24 11:00) Unknown naproxen Allergy (Verified 11/22/24 11:00) Unknown paroxetine HCl (From Paxil) Allergy (Verified 11/22/24 11:00) Unknown prednisolone acetate (From Blephamide) Allergy (Verified 11/22/24 11:00) Unknown sulfacetamide sodium (From Blephamide) Allergy (Verified 11/22/24 11:00) Unknown Medications ???Medication ???Instructions ???Recorded ???Confirmed ???Type diclofenac sodium 1 % topical gel 100 g TP PRN PRN Pain 03/26/18 History (Voltaren) acetaminophen 325 mg tablet 650 mg PO Q6H PRN Pain 08/20/21 History (Tylenol) Handicapped placcard See Rx Instructions .Route 3 11/22/24 Rx .COMPLEX #1 unit polyethylene glycol 3350 17 gram 17 g PO QDAY PRN 08/13/24 11/22/24 History oral powder packet carboxymethylcellulose sodium 1 % 1 drp ophthalmic (eye) 4-6XD PRN 09/07/24 11/22/24 History eye drops (Artificial Tears (carboxymethylcellulose)) cetirizine 10 mg tablet 10 mg PO QDAY PRN 09/07/24 5 History copper gluconate 2 mg capsule 2 mg PO QDAY 09/07/24 11/22/24 His tory denosumab 60 mg/mL subcutaneous 60 mg subcut [id number] 09/07/2411/08 History syringe (Prolia) escitalopram oxalate 10 mg tablet 10 mg PO QDAY 09/07/24 11/22/24 H istory ferrous gluconate 324 mg (37.5 mg 324 mg PO QDAY 09/07/24 11/22/24 History iron) tablet fluticasone propionate 50 2 spray intranasal QDAY 09/07/24 0 11/22/24 History mcg/actuation nasal spray,suspension (Flonase Allergy Relief) furosemide 20 mg tablet (Lasix) 20 mg PO Q OTHER DAY 09/07/2411/08 History levothyroxine 25 mcg capsule 25 mcg PO QDAY 09/07/24 11/22/24 H istory methenamine hippurate 1 gram tablet 1 g PO BID 09/07/24 11/22/24 Hi story metoprolol succinate 25 mg 25 mg PO QDAY 09/07/24 11/22/24 Hi story tablet,extended release 24 hr omeprazole 40 mg capsule,delayed 40 mg PO QDAY 09/07/24 11/22/24 Hi story release prednisone 20 mg tablet 5 mg PO QDAY PRN 09/07/24 11/22/24 History sennosides 8.6 mg-docusate sodium 1 tab-cap PO QHS 09/07/24 5 History 50 mg capsule (Senna Plus) ascorbate calcium (vitamin C) 500 500 mg PO QDAY 09/24/24 11/22/24 History mg tablet calcium carbonate 600 mg PO BID 09/24/24 11/22/24 Hi story cholecalciferol (vitamin D3) 10 10 mcg PO QDAY 09/24/24 11/22/24 H istory mcg (400 unit) capsule olanzapine 2.5 mg tablet 2.5 mg PO QHS 09/24/24 11/22/24 Hi story modafinil 100 mg tablet mg PO 10/22/24 11/22/24 History modafinil 100 mg tablet 100 mg PO DIRECTED 30 days #15 11/16/24 11/22/24 Rx tabs tramadol 50 mg tablet 50 mg PO .qid 30 days #120 tabs 09 /03/25 09/08/25 Rx estradiol 0.01% (0.1 mg/gram) 1 appful vaginal .Q3Days 11/22/24 11/22/24 History vaginal cream Have you fallen in the past year?: [...] Cardiology follow-up encounter History of rheumatic fever H (more content not included)... Normal [facility] Bilirubin directOrdered By: Payam Reyna on 11-03-2024 Bilirubin.direct [Mass/Vol] 0.42 mg/dL High 0.00-0.30 [facility] Bilirubin, totalOrdered By: Payam Reyna on 11-03-2024 Bilirubin [Mass/Vol] 0.91 mg/dL 0.00-1.30 [facility] Laboratory - Chemistry and C hemistry - challengeOrdered By: Payam Reyna on 11-03-2024 AST [Catalytic activity/Vol] 34 U/L High <32 [facility] Serum globulin measurementOr dered By: Payam Reyna on 11-03-2024 Globulin (S) [Mass/Vol] 3.4 g/dL 2.2-4.2 [facility] Serum or plasma alanine cheatham otransferase (ALT) measurementOrdered By: Payam Reyna on 11-03-2024 ALT [Catalytic activity/Vol] 34 U/L <35 [facility] Serum or plasma albumin yonatan urement (mass/volume)Ordered By: Payam Reyna on 11-03-2024 Albumin [Mass/Vol] 3.5 g/dL 3.4-4.8 [facility] Serum or plasma alkaline shannon sphatase measurementOrdered By: Payam Reyna on 11-03-2024 ALP [Catalytic activity/Vol] 61 U/L 35-104 [facility] Total proteinOrdered By: Fredy Reyna on 11-03-2024 Protein [Mass/Vol] 6.9 g/dL 5.9-8.4 [facility] Absolute lymphocyte countOrd ered By: Payam Reyna on 11-01-2024 Lymphocytes Auto (Unsp spec) [#/Vol] 0.70 10*3/uL Low 0.83-4.51 [facility] Absolute neutrophil countOrd ered By: Payam Reyna on 11-01-2024 Neutrophils (Bld) [#/Vol] 3.7 10*3/uL 2.0-7.7 [facility] Anion gap in Serum or Plasma Ordered By: Payam Reyna on 11-01-2024 Anion gap [Moles/Vol] 10 mmol/L 5-15 [facility] Automated lymphocyte count a s percentage of total leukocytesOrdered By: Payam Reyna on 11-01-2024 Lymphocytes/100 WBC Auto (Unsp spec) 13.1 % Low 19-41 [facility] BUN/creatinine ratioOrdered By: Payam Reyna on 11-01-2024 Urea nitrogen/Creatinine [Mass ratio] 24.9 mg/mg High 10-20 [facility] Basophil percentageOrdered B y: Payam Reyna on 11-01-2024 Basophils/100 WBC (Bld) 0.4 % 0-1 [facility] Bilirubin, totalOrdered By: Payam Reyna on 11-01-2024 Bilirubin [Mass/Vol] 0.81 mg/dL 0.00-1.30 [facility] Carbon dioxide, total [Moles /volume] in Central venous bloodOrdered By: Payam Reyna on 11-01-2024 CO2 [Moles/Vol] 24.3 mmol/L 21.0-32.0 [facility] Chloride assayOrdered By: Angelito Reyna on 11-01-2024 Chloride [Moles/Vol] 106 mmol/L 98-108 [facility] Eosinophil percentageOrdered By: Payam Reyna on 11-01-2024 Eosinophils/100 WBC (Bld) 1.9 % 0-5 [facility] Erythrocyte distribution wid th ratioOrdered By: Payam Reyna on 11-01-2024 Erythrocyte distribution width (RBC) [Ratio] 15.8 % High 11.6-14.6 [facility] Erythrocyte distribution wid th standard deviationOrdered By: Payam Reyna on 11-01-2024 Erythrocyte distribution width (RBC) [Ratio] 60.8 fl High 35.1-43.9 [facility] Glomerular filtration rate ( GFR) estimation/1.73 sq m using serum, plasma, or whole bOrdered By: [facility] Reyna on 11-01-2024 GFR/1.73 sq M.predicted among non-blacks MDRD (S/P/Bld) [Vol rate/Area] 83 mL/min/{1.73_m2} >60 [facility] Comment on above: mL/min/1.73m2 CKD-EP I Creatinine Equation (2020) Hematocrit Auto (Bld) [Volum e fraction]Ordered By: Payam Reyna on 11-01-2024 Hematocrit (Bld) [Volume fraction] 33.8 % Low 37-47 [facility] Hemoglobin measurementOrdere d By: Payam Reyna on 11-01-2024 Hemoglobin (Bld) [Mass/Vol] 11.2 g/dL Low 12.0-15.0 [facility] Immature granulocytes/100 WB C Auto (Bld)Ordered By: Payam Reyna 11-01-2024 Immature granulocytes/100 WBC (Bld) 0.400 % 0.0-0.9 [facility] Comment on above: IG% - Immature Granu locytes (promyelocytes, myelocytes and metamyelocytes) > 1% indicates that a LEFT SHIFT is Present. Laboratory - Chemistry and C hemistry - challengeOrdered By: Payam Reyna on 11-01-2024 AST [Catalytic activity/Vol] 32 U/L <32 [facility] MCV (mean corpuscular volume ) determinationOrdered By: Payam Reyna 11-01-2024 MCV (RBC) [Entitic vol] 104.0 fL High 81-99 [facility] Mean corpuscular hemoglobin (MCH) determinationOrdered By: Payam Reyna on 11-01-2024 MCH (RBC) [Entitic mass] 34.5 pg High 27.0-32.0 [facility] Mean corpuscular hemoglobin concentration (MCHC) determinationOrdered By: Payam Reyna on 11-01-2024 MCHC (RBC) [Mass/Vol] 33.1 g/dL 32-36 [facility] Mean platelet volume determi nationOrdered By: Payam Reyna on 11-01-2024 Platelet mean volume (Bld) [Entitic vol] 9.8 fL 6.2-12.0 [facility] Monocyte percentageOrdered B y: Payam Reyna on 11-01-2024 Monocytes/100 WBC (Bld) 14.6 % High 0-10 [facility] Neutrophil percentageOrdered By: Payam Reyna on 11-01-2024 Neutrophils/100 WBC (Bld) 69.6 % 47-70 [facility] Nucleated red blood cell per centageOrdered By: Payam Reyna on 11-01-2024 Nucleated RBC/100 WBC (Bld) [Ratio] 0 % 0-5 [facility] Platelet countOrdered By: Angelito Reyna on 11-01-2024 Platelets (Bld) [#/Vol] 112 10*3/uL Low 150-450 [facility] Potassium measurement (mass/ volume)Ordered By: Payam Reyna on 11-01-2024 Potassium (Unsp spec) [Mass/Vol] 4.1 mmol/L 3.3-5.1 [facility] RBC Auto (Bld) [#/Vol]Ordere d By: Payam Reyna on 11-01-2024 RBC (Bld) [#/Vol] 3.25 10*6/uL Low 4.2-5.4 [facility] Serum creatinine measurement (mass/volume)Ordered By: Payam Reyna on 11-01-2024 Creatinine [Mass/Vol] 0.69 mg/dL Low 0.70-1.20 [facility] Serum globulin measurementOr dered By: Payam Reyna on 11-01-2024 Globulin (S) [Mass/Vol] 3.0 g/dL 2.2-4.2 [facility] Serum glucose measurement (m ass/volume)Ordered By: Payam Herronrejialyssa 11-01-2024 Glucose [Mass/Vol] 67 mg/dL Low 70-99 [facility] Serum or plasma alanine cheatham otransferase (ALT) measurementOrdered By: Payam Reyna on 11-01-2024 ALT [Catalytic activity/Vol] 32 U/L <35 [facility] Serum or plasma albumin yonatan urement (mass/volume)Ordered By: Payam Reyna 11-01-2024 Albumin [Mass/Vol] 3.1 g/dL Low 3.4-4.8 [facility] Serum or plasma albumin/glob ulin mass ratioOrdered By: Payam Reyna 11-01-2024 Albumin/Globulin [Mass ratio] 1.0 {ratio} 0.9-2.4 [facility] Serum or plasma alkaline shannon sphatase measurementOrdered By: Payam Reyna 11-01-2024 ALP [Catalytic activity/Vol] 57 U/L 35-104 [facility] Serum or plasma calcium yonatan urement (mass/volume)Ordered By: Payam Reyna 11-01-2024 Calcium [Mass/Vol] 8.9 mg/dL 7.6-11.0 [facility] Serum or plasma urea nitroge n measurement (mass/volume)Ordered By: Payam Reyna 11-01-2024 Urea nitrogen [Mass/Vol] 17 mg/dL 4-19 [facility] Sodium levelOrdered By: Jas traceynicole Maribell 11-01-2024 Sodium [Moles/Vol] 139 mmol/L 133-145 [facility] TSH DL <= 0.005 mIU/L QnOrde red By: Payam Herronrejialyssa 11-01-2024 TSH Qn 0.767 uIU/mL 0.300-4.200 [facility] Total proteinOrdered By: Fredy edwardogarfield Reyna 11-01-2024 Protein [Mass/Vol] 6.1 g/dL 5.9-8.4 [facility] White blood cell (WBC) count Ordered By: Payam Reyna on 11-01-2024 WBC (Bld) [#/Vol] 5.3 10*3/uL 4.4-11.0 [facility] Forearm 2 Viewson 10-22-2024 Forearm 2 Views [facility] [address] [place] [address] Forearm 2 Views MR#: [id number] Acct: [id number] Name: CHRISTIAN LANDRUM Rep #: [id number] : 1935 F 89 From: Mauro reich MD PCP: OLIVE Puckett Status: DEP AMB Study: Forearm 2 Views Date of Exam: 10/22/24 Exam# [id number] Ordering Dr: Carmella Deluca PROCEDURE: FOREARM 2 VIEWS 10/22/2024 REASON FOR [...] shaft. The alignment is maintained. Reading Location: [id number] CC: OLIVE Horner; OLIVE Deluca Sheet Rock Sander: Signed Normal [facility] Orthopedic Visit Reporton Orthopedic Visit Report [facility] [place] [address] OFFICE VISIT Date of Service: 10/22/24 MR#: [id number] Acct: [id number] Name: CHRISTIAN LANDRUM Rep #: [id number] : 1935 Provider: OLIVE manzo Age/Sex: 89/F Location: [facility] [place] Status: Signed Intake Vital Signs 09/14/24 05:45 [...] denosumab 60 mg/mL subcutaneous 60 mg subcut [id number] 09/07/2411/08 History syringe (Prolia) escitalopram oxalate 10 [...] of esophagogastroduodenoscopy (more content not included)... Normal [facility] OT General Evaluationon 09-16 OT General Evaluation [facility] Occupational Therapy [facility] [address] [place] [address]. [address] [place] [address] / REHABILITATION SERVICES INITIAL EVALUATION MR#: [id number] Acct: [id number] Name: CHRISTIAN LANDRUM Rep #: [id number] : 1935 89 From: Cely CARROLL CHT Referring Dr.: OLIVE Deluca Status: REG RCR Insurance: MEDICARE PART A B Eval Date: ANTHEM Patient's Visit Information Visit Information Visit Information: CHRISTIAN LANDRUM is a 89 year old F, referred to Occupational Therapy by OLIVE Waters, with a diagnosis of lower end ulnar fx.. Date of Evaluation: 10/13/24 Occupational Therapist: ELIZABETH Terrell/MAMADOU Alarcon Subjective Subjective: This 89 year old female [...] and recommendations for weaning and OT at [facility]. pt arrives 9 weeks and 5 days out from date of dx and casting. pt states she lives in [facility] use of rollator and shower bench- since fall pt has been in WC ( pt is doing Physical therapy) ROM ROM Comments: pt demo with left forearm supination and pronation wfl - and no reports of pain . 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 pt and made rec. for [facility] to have pt wear orthosis with her [...] General Plan: pt to undergo OT at [facility] 2x week for 4 weeks to improve [...] to be FAXED BACK to us at [phone] for Medicare purposes. Please let me know if there are questions or concerns regarding this plan of care. Physician Signature: Date: 10/13/24 1639 CC: OLIVE Horner; OLIVE Deluca MK Signed For Medicare only, by signing this I certify the plan of care. _ Physicians Signature Date Normal [facility] Absolute lymphocyte countOrd ered By: Payam Reyna on 10-04-2024 Lymphocytes Auto (Unsp spec) [#/Vol] 0.75 10*3/uL Low 0.83-4.51 [facility] Absolute neutrophil countOrd ered By: Payam Reyna on 10-04-2024 Neutrophils (Bld) [#/Vol] 4.1 10*3/uL 2.0-7.7 [facility] Anion gap in Serum or Plasma Ordered By: Payam Reyna on 10-04-2024 Anion gap [Moles/Vol] 11 mmol/L 5-15 [facility] Automated lymphocyte count a s percentage of total leukocytesOrdered By: Payam Reyna on 10-04-2024 Lymphocytes/100 WBC Auto (Unsp spec) 13.2 % Low 19-41 [facility] BUN/creatinine ratioOrdered By: Payam Reyna on 10-04-2024 Urea nitrogen/Creatinine [Mass ratio] 25.0 mg/mg High 10-20 [facility] Basophil percentageOrdered B y: Payam Reyna on 10-04-2024 Basophils/100 WBC (Bld) 0.7 % 0-1 [facility] Bilirubin, totalOrdered By: Payam Reyna on 10-04-2024 Bilirubin [Mass/Vol] 0.90 mg/dL 0.00-1.30 [facility] Carbon dioxide, total [Moles /volume] in Central venous bloodOrdered By: Payam Gopaljodi on 10-04-2024 CO2 [Moles/Vol] 22.9 mmol/L 21.0-32.0 [facility] Chloride assayOrdered By: Angelito nunn Gopaljodi on 10-04-2024 Chloride [Moles/Vol] 109 mmol/L High 98-108 [facility] Eosinophil percentageOrdered By: Payam Reyna on 10-04-2024 Eosinophils/100 WBC (Bld) 1.9 % 0-5 [facility] Erythrocyte distribution wid th ratioOrdered By: Payam Reyna on 10-04-2024 Erythrocyte distribution width (RBC) [Ratio] 15.7 % High 11.6-14.6 [facility] Erythrocyte distribution wid th standard deviationOrdered By: merylbuena vistagarfield Reyna on 10-04-2024 Erythrocyte distribution width (RBC) [Ratio] 59.2 fl High 35.1-43.9 [facility] Glomerular filtration rate ( GFR) estimation/1.73 sq m using serum, plasma, or whole bOrdered By: Angelitomerylailyn Gopalrejialyssa on 10-04-2024 GFR/1.73 sq M.predicted among non-blacks MDRD (S/P/Bld) [Vol rate/Area] 87 mL/min/{1.73_m2} >60 [facility] Comment on above: mL/min/1.73m2 CKD-EP I Creatinine Equation (2020) Hematocrit Auto (Bld) [Volum e fraction]Ordered By: Angelitoarline Reyna on 10-04-2024 Hematocrit (Bld) [Volume fraction] 36.4 % Low 37-47 [facility] Hemoglobin measurementOrdere d By: Angelitomerylmichaelgarfield Herronrejialyssa on 10-04-2024 Hemoglobin (Bld) [Mass/Vol] 12.3 g/dL 12.0-15.0 [facility] Immature granulocytes/100 WB C Auto (Bld)Ordered By: Payam Reyna on 10-04-2024 Immature granulocytes/100 WBC (Bld) 0.500 % 0.0-0.9 [facility] Comment on above: IG% - Immature Granu locytes (promyelocytes, myelocytes and metamyelocytes) > 1% indicates that a LEFT SHIFT is Present. Laboratory - Chemistry and C hemistry - challengeOrdered By: Payam Reyna on 10-04-2024 AST [Catalytic activity/Vol] 35 U/L High <32 [facility] MCV (mean corpuscular volume ) determinationOrdered By: Payam Reyna on 10-04-2024 MCV (RBC) [Entitic vol] 101.4 fL High 81-99 [facility] Mean corpuscular hemoglobin (MCH) determinationOrdered By: Payam Reyna on 10-04-2024 MCH (RBC) [Entitic mass] 34.3 pg High 27.0-32.0 [facility] Mean corpuscular hemoglobin concentration (MCHC) determinationOrdered By: Payam Reyna on 10-04-2024 MCHC (RBC) [Mass/Vol] 33.8 g/dL 32-36 [facility] Mean platelet volume determi nationOrdered By: Payam Reyna on 10-04-2024 Platelet mean volume (Bld) [Entitic vol] 10.4 fL 6.2-12.0 [facility] Monocyte percentageOrdered B y: Payam Reyna on 10-04-2024 Monocytes/100 WBC (Bld) 11.1 % High 0-10 [facility] Neutrophil percentageOrdered By: Payam Reyna on 10-04-2024 Neutrophils/100 WBC (Bld) 72.6 % High 47-70 [facility] Nucleated red blood cell per centageOrdered By: Payam Reyna on 10-04-2024 Nucleated RBC/100 WBC (Bld) [Ratio] 0 % 0-5 [facility] Platelet countOrdered By: Angelito Reyna on 10-04-2024 Platelets (Bld) [#/Vol] 101 10*3/uL Low 150-450 [facility] Potassium measurement (mass/ volume)Ordered By: Payam Reyna on 10-04-2024 Potassium (Unsp spec) [Mass/Vol] 3.8 mmol/L 3.3-5.1 [facility] RBC Auto (Bld) [#/Vol]Ordere d By: Payam Reyna on 10-04-2024 RBC (Bld) [#/Vol] 3.59 10*6/uL Low 4.2-5.4 [facility] Serum creatinine measurement (mass/volume)Ordered By: Payam Reyna on 10-04-2024 Creatinine [Mass/Vol] 0.59 mg/dL Low 0.70-1.20 [facility] Serum globulin measurementOr dered By: Payam Reyna on 10-04-2024 Globulin (S) [Mass/Vol] 3.1 g/dL 2.2-4.2 [facility] Serum glucose measurement (m ass/volume)Ordered By: Payam Reyna on 10-04-2024 Glucose [Mass/Vol] 72 mg/dL 70-99 [facility] Serum or plasma alanine cheatham otransferase (ALT) measurementOrdered By: Payam Reyna on 10-04-2024 ALT [Catalytic activity/Vol] 40 U/L High <35 [facility] Serum or plasma albumin yonatan urement (mass/volume)Ordered By: Payam Reyna on 10-04-2024 Albumin [Mass/Vol] 3.1 g/dL Low 3.4-4.8 [facility] Serum or plasma albumin/glob ulin mass ratioOrdered By: Payam Reyna on 10-04-2024 Albumin/Globulin [Mass ratio] 1.0 {ratio} 0.9-2.4 [facility] Serum or plasma alkaline shannon sphatase measurementOrdered By: Payam Reyna on 10-04-2024 ALP [Catalytic activity/Vol] 63 U/L 35-104 [facility] Serum or plasma calcium yonatan urement (mass/volume)Ordered By: Payam Reyna on 10-04-2024 Calcium [Mass/Vol] 9.4 mg/dL 7.6-11.0 [facility] Serum or plasma urea nitroge n measurement (mass/volume)Ordered By: Payam Reyna on 10-04-2024 Urea nitrogen [Mass/Vol] 15 mg/dL 4-19 [facility] Sodium levelOrdered By: Jas Reyna on 10-04-2024 Sodium [Moles/Vol] 142 mmol/L 133-145 [facility] Total proteinOrdered By: Fredyalyssa Reyna on 10-04-2024 Protein [Mass/Vol] 6.2 g/dL 5.9-8.4 [facility] White blood cell (WBC) count Ordered By: Payam Reyna on 10-04-2024 WBC (Bld) [#/Vol] 5.7 10*3/uL 4.4-11.0 [facility] Forearm 2 Viewson 09-24-2024 Forearm 2 Views [facility] [address] [place] [address] Forearm 2 Views MR#: [id number] Acct: [id number] Name: CHRISTIAN LANDRUM Rep #: [id number] : 1935 F 89 From: Wilfred Brothers MD PCP: OLIVE Puckett Status: DEP AMB Study: Forearm 2 Views Date of Exam: 09/24/24 Exam# [id number] Ordering Dr: Carmella Deluca EXAM: XR Left Forearm, 2 Views CLINICAL INDICATION: FX F/U TECHNIQUE: Frontal and lateral views of the left forearm. COMPARISON: XR Forearm dated 08/16/2024 FINDINGS: BONES/JOINTS: Healing fracture of the ulnar radius. No dislocation. SOFT TISSUES: Soft tissue swelling. RAD/Forearm 2 Views IMPRESSION: Healing fracture of the ulnar radius. Reading Location: [facility] CC: OLIVE Horner; OLIVE Deluca Sheet Rock Sander: Signed Normal [facility] Orthopedic Visit Reporton Orthopedic Visit Report [facility] [address] [place] [address] OFFICE VISIT Date of Service: 09/24/24 MR#: [id number] Acct: [id number] Name: CHRISTIAN LANDRUM Rep #: [id number] : 1935 Provider: OLIVE manzo Age/Sex: 89/F Location: [facility] [place] Status: Signed Intake Vital Signs 09/03/24 14:12 [...] denosumab 60 mg/mL subcutaneous 60 mg subcut [id number] 09/07/2402/08 History syringe (Prolia) escitalopram oxalate 10 [...] of tonsillecto (more content not included)... Normal [facility] C-REACTIVE PROTEINon 025 CRP [Mass/Vol] mg/dL [facility] [facility] - 0.9 mg/dL [facility] CBC W Auto Differential pane l (Bld)on 09-21-2024 Basophils (Bld) [#/Vol] 0.04 10*3/uL [facility] Basophils/100 WBC (Bld) 0.6 % [facility] Differential cell count method Nom (Bld) Auto [facility] Eosinophils (Bld) [#/Vol] 0.04 10*3/uL [facility] Eosinophils/100 WBC (Bld) 0.6 % [facility] Erythrocyte distribution width (RBC) [Ratio] 15.9 % High 11.5 - 15.0 % [facility] Hematocrit (Bld) [Volume fraction] 38 % 36.0 - 46.0 % [facility] Hemoglobin (Bld) [Mass/Vol] 12.9 g/dL 11.5 - 15.5 g/dL [facility] Immature granulocytes (Bld) [#/Vol] 0.03 10*3/uL [facility] Immature granulocytes/100 WBC (Bld) 0.4 % [facility] Interpretation and review of laboratory results Abnormal [facility] Lymphocytes (Bld) [#/Vol] 0.39 10*3/uL Low [facility] Lymphocytes/100 WBC (Bld) 5.7 % [facility] MCH (RBC) [Entitic mass] 33.8 pg 26.0 - 34.0 pg [facility] MCHC (RBC) [Mass/Vol] 33.9 g/dL 30.5 - 36.0 g/dL [facility] MCV (RBC) [Entitic vol] 99.5 fL 80.0 - 100.0 fL [facility] Monocytes (Bld) [#/Vol] 0.48 10*3/uL [facility] Monocytes/100 WBC (Bld) 7 % [facility] Neutrophils (Bld) [#/Vol] 5.9 10*3/uL [facility] Neutrophils/100 WBC (Bld) 85.7 % [facility] Nucleated RBC (Bld) [#/Vol] [facility] Nucleated RBC/100 WBC (Bld) [Ratio] 0 % /100 WBC [facility] Platelet mean volume (Bld) [Entitic vol] 9.2 fL 9.0 - 12.7 fL [facility] Platelets (Bld) [#/Vol] 119 10*3/uL Low [facility] RBC (Bld) [#/Vol] 3.82 10*6/uL Low 3.90 - 5.2 0 m/uL [facility] WBC (Bld) [#/Vol] 6.88 10*3/uL [facility] Comprehensive metabolic 2000 panelOrdered By: Pam Tate on 09-21-2024 Albumin [Mass/Vol] 3.4 g/dL Low 3.9 - 4.9 g/dL [facility] ALP [Catalytic activity/Vol] 68 U/L 34 - 123 U/L [facility] ALT [Catalytic activity/Vol] 50 U/L High 7 - 38 U/L [facility] Anion gap [Moles/Vol] 11 mmol/L 8 - 15 mmol/L [facility] AST [Catalytic activity/Vol] 46 U/L High 13 - 35 U/L [facility] Bilirubin [Mass/Vol] 0.9 mg/dL 0.2 - 1 .3 mg/dL [facility] Calcium [Mass/Vol] 9.3 mg/dL 8.5 - 10. 2 mg/dL [facility] Chloride [Moles/Vol] 104 mmol/L 98 - 10 7 mmol/L [facility] CO2 [Moles/Vol] 22 mmol/L 22 - 30 mmol/L [facility] Creatinine [Mass/Vol] 0.57 mg/dL Low 0.58 - 0.96 mg/dL [facility] GFR/1.73 sq M.predicted among non-blacks MDRD (S/P/Bld) [Vol rate/Area] 88 mL/min/{1.73_m2} - PINF [facility] Comment on above: Estimated Glomerular Filtration [...] 196 mg/dL High 74 - 99 mg/dL [facility] Comment on above: The [place] Diab[employer] Association (ADA) provides guidance for [...] Standards of Medical Care in Diabetes 2016, [place] [employer]. Diabetes Care. 2016.39(Suppl 1). Interpretation and review of laboratory results Abnormal [facility] Potassium [Moles/Vol] 4.3 mmol/L 3.7 - 5.1 mmol/L [facility] Protein [Mass/Vol] 6.5 g/dL 6.3 - 8.0 g/dL [facility] Sodium [Moles/Vol] 137 mmol/L 136 - 144 mmol/L [facility] Urea nitrogen [Mass/Vol] 13 mg/dL 7 - 21 mg/dL [facility] ESR Westergren method (Bld) [Velocity]on 09-21-2024 ESR (Bld) [Velocity] 29 mm/h High [facility] Interpretation and review of laboratory results Abnormal [facility] Iron and Iron binding capaci ty panelon 09-21-2024 Iron [Mass/Vol] 113 ug/dL 41 - 186 ug/dL [facility] Iron binding capacity [Mass/Vol] 268 ug/dL 232 - 386 ug/dL [facility] Iron/TIBC [Molar ratio] 42.2 % 15.0 - 57.0 % [facility] No Panel Informationon 09-21 Interpretation and review of laboratory results Normal [facility] Urine Cultureon 09-17-2024 [facility] Urine Culture Urine Culture Escherichia coli [place] Count >100,000 Klebsiella pneumoniae sp pneum Klebsiella [...] TMP SMX Islt JEMAL <=20 S Normal [facility] Comment on above: Performed By: #### M 100.2200 ####[facility] [address] [place], [address] Bilirubin Test strip Ql (U)O rdered By: Sung Torres on 09-14-2024 Bilirubin Ql (U) Negative Negative [facility] Brain/Head without Contrasto n 09-14-2024 Brain/Head without Contrast [facility] Imaging Services [address] [place] [address] Brain/Head without Contrast MR#: [id number] Acct: [id number] Name: CHRISTIAN LANDRUM Rep #: [id number] : 1935 F 89 From: Cathy Brito MD PCP: OLIVE Puckett Status: REG ER Study: Brain/Head without Contrast Date of Exam: 04/10 Exam# [id number] Ordering Dr: Sung Torres DO EXAM: NONCONTRAST [...] acute intracranial pathology. Reading Location: [facility] CC: HEALTH POLICY ANALYST-Ana M Torres DO Sheet Rock Sander: Signed Normal [facility] Elbow min 3 Viewson 09-15-19 Elbow min 3 Views [facility] Imaging Services [address] [place] [address] Elbow min 3 Views MR#: [id number] Acct: [id number] Name: CHRISTIAN LANDRUM Rep #: [id number] : 1935 F 89 From: Cathy Brito MD PCP: OLIVE Puckett Status: REG ER Study: Elbow min 3 Views Date of Exam: 09/14/24 Exam# [id number] Ordering Dr: Sung Torres DO PROCEDURE: ELBOW MIN 3 VIEWS 09/14/2024 REASON FOR EXAM: PAIN TECHNIQUE: ELBOW MIN 3 VIEWS COMPARISON: None FINDINGS: There is no fracture or dislocation identified. There is no visible joint effusion. Mineralization is normal. There is no visible atherosclerosis. RAD/Elbow min 3 Views IMPRESSION: No fracture or dislocation is identified. Reading Location: [facility] CC: HEALTH POLICY ANALYST-C Galina Torres DO Sheet Rock Sander: Signed Normal [facility] Emergency Department Summary on 09-14-2024 Emergency Department Summary [facility] Medical Records Department [address] [place] [address] Emergency Department Summary 09/14/24 MR#: [id number] Acct: [id number] Name: CHRISTIAN LANDRUM Rep #: [id number] : 1935 89 From: Sung Torres DO PCP: OLIVE Puckett Status:DEP ER Location: ED HPI History of Present Illness Chief Complaint: Fall Informant: patient, family and SNF Narrative Narrative: Patient is an 89-year-old female from the custodial with history of proximal A-fib currently on metoprolol but no anticoagulation as well as hypothyroidism and depression. Patient and daughter state that she also has difficulty ambulating. Patient reports that she was trying to get up this morning and lost her balance and fell landing on her right side. She denies any loss of consciousness. residential states that the nurse had walked by [...] infection she was sent in for evaluation [facility] Medical History Loss of hearing Wears [...] denosumab 60 mg/mL subcutaneous 60 mg subcut [id number] 09/07/24 Unk nown History syringe (Prolia) escitalopram [...] 05:40 metronid (more content not included)... Normal [facility] Ketones Test strip Ql (U)Ord ered By: Sung Torres on 09-14-2024 Ketones Ql (U) 5 mg/dl High Negative [facility] Microscopic analysis of urin e for red blood cells (RBC)Ordered By: Sung Torres on 09-14-2024 Microscopic analysis of urine for red blood cells (RBC) 0-5 SEEN /hpf 0-5 [facility] Mucus LM Ql (Urine sed)Order ed By: Sung Torres on 09-14-2024 Mucus Ql (Urine sed) 0 SEEN /hpf [facility] Nitrite Test strip Ql (U)Ord ered By: Sung Torres on 09-14-2024 Nitrite Ql (U) Negative Negative [facility] Pelvis 1 or 2 Viewson 2024 Pelvis 1 or 2 Views [facility] Imaging Services [address] [place] [address] Pelvis 1 or 2 Views MR#: [id number] Acct: [id number] Name: CHRISTIAN LANDRUM Rep #: [id number] : 1935 F 89 From: Catyh Brito MD PCP: OLIVE Puckett Status: REG ER Study: Pelvis 1 or 2 Views Date of Exam: 09/14/24 Exam# [id number] Ordering Dr: Sung Torres DO PROCEDURE: PELVIS [...] fracture is identified. Reading Location: [facility] CC: HEALTH POLICY ANALYST-C Galina Horner; Sung Torres DO Sheet Rock Sander: Signed Normal [facility] Protein Test strip Ql (U)Ord ered By: Sung Torres on 09-14-2024 Protein Ql (U) 30 mg/dl High Negative [facility] Spine Cervical without Contr ason 09-14-2024 Spine Cervical without Contras [facility] Imaging Services [address] [place], [place] [id number] Spine Cervical without Contras MR#: [id number] Acct: [id number] Name: CHRISTIAN LANDRUM Rep #: [id number] : 1935 F 89 From: Cathy Brito MD PCP: OLIVE Puckett Status: REG ER Study: Spine Cervical without Contras Date of Exam: 0 09/14/24 Exam# [id number] Ordering Dr: Sung Torres DO PROCEDURE: SPINE [...] acute traumatic injury. Reading Location: [facility] CC: HEALTH POLICY ANALYSTLisaC Galina Horner; Sung Torres DO Sheet Rock Sander: Signed Normal [facility] Squamous epithelial cells de tection in urine sediment by light microscopyOrdered By: Sung Torres on 09-14-2024 Epithelial cells.squamous LM Ql (Urine sed) 0-5 SEEN /hpf 5-10 [facility] Urinalysis, Completeon 09-14 EPI,SQUAMOUS 0-5 SEEN Normal 5-10 [facility] Comment on above: Order Comment: COLLE CTOR TO SPECIFY Performed By: #### L 400.0001 ####[facility] [address] [place], [address] RBC 0-5 SEEN Normal 0-5 [facility] Comment on above: Order Comment: GILBERTO CTOR TO SPECIFY Performed By: #### L 400.0001 ####[facility] [address] [place], [address] BACTERIA 3+ /hpf Normal None Seen [facility] Comment on above: Order Comment: GILBERTO CTOR TO SPECIFY Performed By: #### L 400.0001 ####[facility] [address] [place], [address] WBC 10-25 SEEN Normal 0-5 [facility] Comment on above: Order Comment: GILBERTO CTOR TO SPECIFY Performed By: #### L 400.0001 ####[facility] [address] [place], [address] Mucus Ql (Urine sed) 0 SEEN Normal [facility] Comment on above: Order Comment: GILBERTO CTOR TO SPECIFY Performed By: #### L 400.0001 ####[facility] [address] [place], [address] Urine clarityOrdered By: Zander Torres on 09-14-2024 Clarity (U) Sl. Cloudy Clear [facility] Urine color determinationOrd ered By: Sung Torres on 09-14-2024 Color (U) Yellow Yellow [facility] Urine cultureOrdered By: Zander Torres on 09-14-2024 Bacteria identified Cx Nom (U) Escherichia coli Abnormal [facility] Bacteria identified Cx Nom (U) Klebsiella pneumoniae sp pneum Abnormal [facility] Urine glucose detectionOrder ed By: Sung Torres on 09-14-2024 Glucose Ql (U) Normal mg/dl Normal [facility] Urine leukocyte esterase det ection by dipstickOrdered By: Sung Torres on 09-14-2024 Leukocyte esterase Test strip Ql (U) 500 /ul High Negative [facility] Urine pHOrdered By: Sung canales on 09-14-2024 pH (U) 6.5 [pH] 5.0 - 8.0 [facility] Urine sediment bacteria coun t by microscopy (number/high power field)Ordered By: Sung Torres on 09-14-2024 Bacteria LM.HPF (Urine sed) [#/Area] 3 /[HPF] None Seen [facility] Urine specific gravity measu rementOrdered By: Sung Torres on 09-14-2024 Specific gravity (U) [Rel density] 1.015 1.002-1.030 [facility] Urine urobilinogen measureme ntOrdered By: Sung Torres on 09-14-2024 Urobilinogen Ql (U) 1 mg/dl High Normal [facility] White blood cell countOrdere d By: Sung Torres on 09-14-2024 White blood cell count 10-25 SEEN /hpf 0-5 [facility] Gastroenterology Visit Repor ton 09-07-2024 Gastroenterology Visit Report [facility] [address] [place] [address] OFFICE VISIT Date of Service: 09/07/24 MR#: [id number] Acct: [id number] Name: CHRISTIAN LANDRUM Rep #: [id number] : 1935 Provider: OLIVE agrawal Age/Sex: 89/F Location: [facility] Status: Signed Intake Vital Signs 08/18/24 14:34 [...] denosumab 60 mg/mL subcutaneous 60 mg subcut [id number] 09/07/24 History syringe (Prolia) escitalopram oxalate 10 [...] a bowel resection and fistula repair at [facility]. Is having fecal incontinence which is new. It's more of a smear and she wipes and wipes and wipes. [facility] Medical History Loss of hearing Wears [...] esophagogastroduodenoscopy (E (more content not included)... Normal [facility] Orthopedic Visit Reporton Orthopedic Visit Report [facility] [address] [place] [address] [address] [place] [address] OFFICE VISIT Date of Service: 09/03/24 MR#: [id number] Acct: [id number] Name: CHRISTIAN LANDRUM Rep #: [id number] : 1935 Provider: OLIVE manzo Age/Sex: 89/F Location: [facility] Status: Signed Intake Vital Signs 08/18/24 14:34 [...] decisions made (more content not included)... Normal [facility] Wrist min 3 Viewson 09-04-19 25 Wrist min 3 Views [facility] Imaging Services [address] [place] [address] Wrist min 3 Views MR#: [id number] Acct: [id number] Name: CHRISTIAN LANDRUM Rep #: [id number] : 1935 F 89 From: Mallika wyatt MD PCP: Dr. Payam Reyna MD Status: DEP AMB Study: Wrist min 3 Views Date of Exam: 09/03/24 Exam# [id number] Ordering Dr: Carmella Deluca PROCEDURE: WRIST MIN [...] in the distal ulnar diaphysis. Reading Location: [place] [address] CC: OLIVE Deluca; Dr. Payam Reyna MD Sheet Rock Sander: Signed Normal [facility] Absolute lymphocyte countOrd ered By: Payam Reyna on 08-30-2024 Lymphocytes Auto (Unsp spec) [#/Vol] 0.95 10*3/uL 0.83-4.51 [facility] Absolute neutrophil countOrd ered By: Payam Reyna on 08-30-2024 Neutrophils (Bld) [#/Vol] 5.3 10*3/uL 2.0-7.7 [facility] Anion gap in Serum or Plasma Ordered By: Payam Reyna on 08-30-2024 Anion gap [Moles/Vol] 10 mmol/L 5-15 [facility] Automated lymphocyte count a s percentage of total leukocytesOrdered By: Payam Reyna on 08-30-2024 Lymphocytes/100 WBC Auto (Unsp spec) 13.2 % Low 19-41 [facility] BUN/creatinine ratioOrdered By: Payam Reyna on 08-30-2024 Urea nitrogen/Creatinine [Mass ratio] 30.3 mg/mg High 10-20 [facility] Basophil percentageOrdered B y: Payam Reyna on 08-30-2024 Basophils/100 WBC (Bld) 0.6 % 0-1 [facility] Bilirubin, totalOrdered By: Payam Reyna on 08-30-2024 Bilirubin [Mass/Vol] 1.04 mg/dL 0.00-1.30 [facility] Carbon dioxide, total [Moles /volume] in Central venous bloodOrdered By: Payam Reyna on 08-30-2024 CO2 [Moles/Vol] 25.2 mmol/L 21.0-32.0 [facility] Chloride assayOrdered By: Angelito Reyna on 08-30-2024 Chloride [Moles/Vol] 102 mmol/L 98-108 [facility] Eosinophil percentageOrdered By: arline Reyna 08-30-2024 Eosinophils/100 WBC (Bld) 1.5 % 0-5 [facility] Erythrocyte distribution wid th ratioOrdered By: Payam Reyna on 08-30-2024 Erythrocyte distribution width (RBC) [Ratio] 15.9 % High 11.6-14.6 [facility] Erythrocyte distribution wid th standard deviationOrdered By: Payam Reyna on 08-30-2024 Erythrocyte distribution width (RBC) [Ratio] 57.3 fl High 35.1-43.9 [facility] Glomerular filtration rate ( GFR) estimation/1.73 sq m using serum, plasma, or whole bOrdered By: Payam Reyna on 08-30-2024 GFR/1.73 sq M.predicted among non-blacks MDRD (S/P/Bld) [Vol rate/Area] 86 mL/min/{1.73_m2} >60 [facility] Comment on above: mL/min/1.73m2 CKD-EP I Creatinine Equation (2020) Hematocrit Auto (Bld) [Volum e fraction]Ordered By: Payam Reyna 08-30-2024 Hematocrit (Bld) [Volume fraction] 37.5 % 37-47 [facility] Hemoglobin measurementOrdere d By: Payam Reyna 08-30-2024 Hemoglobin (Bld) [Mass/Vol] 12.5 g/dL 12.0-15.0 [facility] Immature granulocytes/100 WB C Auto (Bld)Ordered By: Payam Reyna 08-30-2024 Immature granulocytes/100 WBC (Bld) 0.600 % 0.0-0.9 [facility] Comment on above: IG% - Immature Granu locytes (promyelocytes, myelocytes and metamyelocytes) > 1% indicates that a LEFT SHIFT is Present. Laboratory - Chemistry and C hemistry - challengeOrdered By: Payam Reyna on 08-30-2024 AST [Catalytic activity/Vol] 34 U/L High <32 [facility] MCV (mean corpuscular volume ) determinationOrdered By: Payam Reyna on 08-30-2024 MCV (RBC) [Entitic vol] 99.5 fL High 81-99 [facility] Mean corpuscular hemoglobin (MCH) determinationOrdered By: Payam Reyna on 08-30-2024 MCH (RBC) [Entitic mass] 33.2 pg High 27.0-32.0 [facility] Mean corpuscular hemoglobin concentration (MCHC) determinationOrdered By: Payam Reyna on 08-30-2024 MCHC (RBC) [Mass/Vol] 33.3 g/dL 32-36 [facility] Mean platelet volume determi nationOrdered By: Payam Reyna on 08-30-2024 Platelet mean volume (Bld) [Entitic vol] 10.4 fL 6.2-12.0 [facility] Monocyte percentageOrdered B y: Pyaam Reyna on 08-30-2024 Monocytes/100 WBC (Bld) 10.2 % High 0-10 [facility] Neutrophil percentageOrdered By: Payam Reyna on 08-30-2024 Neutrophils/100 WBC (Bld) 73.9 % High 47-70 [facility] Nucleated red blood cell per centageOrdered By: Payam Reyna on 08-30-2024 Nucleated RBC/100 WBC (Bld) [Ratio] 0 % 0-5 [facility] Platelet countOrdered By: Angelito Reyna on 08-30-2024 Platelets (Bld) [#/Vol] 104 10*3/uL Low 150-450 [facility] Potassium measurement (mass/ volume)Ordered By: Payam Reyna on 08-30-2024 Potassium (Unsp spec) [Mass/Vol] 4.2 mmol/L 3.3-5.1 [facility] RBC Auto (Bld) [#/Vol]Ordere d By: Payam Reyna on 08-30-2024 RBC (Bld) [#/Vol] 3.77 10*6/uL Low 4.2-5.4 [facility] Serum creatinine measurement (mass/volume)Ordered By: Payam Reyna on 08-30-2024 Creatinine [Mass/Vol] 0.62 mg/dL Low 0.70-1.20 [facility] Serum globulin measurementOr dered By: Payam Reyna on 08-30-2024 Globulin (S) [Mass/Vol] 3.0 g/dL 2.2-4.2 [facility] Serum glucose measurement (m ass/volume)Ordered By: Payam Reyna on 08-30-2024 Glucose [Mass/Vol] 75 mg/dL 70-99 [facility] Serum or plasma alanine cheatham otransferase (ALT) measurementOrdered By: Payam Reyna on 08-30-2024 ALT [Catalytic activity/Vol] 42 U/L High <35 [facility] Serum or plasma albumin yonatan urement (mass/volume)Ordered By: Payam Reyna on 08-30-2024 Albumin [Mass/Vol] 3.2 g/dL Low 3.4-4.8 [facility] Serum or plasma albumin/glob ulin mass ratioOrdered By: Payam Reyna on 08-30-2024 Albumin/Globulin [Mass ratio] 1.1 {ratio} 0.9-2.4 [facility] Serum or plasma alkaline shannon sphatase measurementOrdered By: Payam Reyna 08-30-2024 ALP [Catalytic activity/Vol] 75 U/L 35-104 [facility] Serum or plasma calcium yonatan urement (mass/volume)Ordered By: Payam Reyna on 08-30-2024 Calcium [Mass/Vol] 9.3 mg/dL 7.6-11.0 [facility] Serum or plasma urea nitroge n measurement (mass/volume)Ordered By: Payam Reyna on 08-30-2024 Urea nitrogen [Mass/Vol] 19 mg/dL 4-19 [facility] Sodium levelOrdered By: Jas Reyna on 08-30-2024 Sodium [Moles/Vol] 137 mmol/L 133-145 [facility] Total proteinOrdered By: Fredy Reyna on 08-30-2024 Protein [Mass/Vol] 6.3 g/dL 5.9-8.4 [facility] White blood cell (WBC) count Ordered By: Payam Reyna on 08-30-2024 WBC (Bld) [#/Vol] 7.2 10*3/uL 4.4-11.0 [facility] Forearm 2 Viewson 08-18-2024 Forearm 2 Views [facility] Imaging Services [address] [place] [address] Forearm 2 Views MR#: [id number] Acct: [id number] Name: CHRISTIAN LANDRUM Rep #: [id number] : 1935 F 89 From: Nic Ozuna MD PCP: Dr. Payam Reyna MD Status: DEP AMB Study: Forearm 2 Views Date of Exam: 08/18/24 Exam# [id number] Ordering Dr: Carmella Deluca PROCEDURE: FOREARM 2 VIEWS 08/18/2024 REASON FOR EXAM: FX F/U TECHNIQUE: 2 view(s) of the left forearm COMPARISON: Left forearm, 08/14/2019. FINDINGS: There is a healing greenstick fracture of the distal ulnar shaft. There is no significant angulation deformity. RAD/Forearm 2 Views IMPRESSION: Healing ulnar shaft fracture. Reading Location: [id number] CC: HEALTH POLICY ANALYST-C Carmella Deluca; Dr. Payam Reyna MD Sheet Rock Sander: Signed Normal [facility] Orthopedic Visit Reporton Orthopedic Visit Report [facility] [address] [place], [place] [id number] OFFICE VISIT Date of Service: 08/18/24 MR#: [id number] Acct: [id number] Name: CHRISTIAN LANDRUM Rep #: [id number] : 1935 Provider: OLIVE manzo Age/Sex: 89/F Location: [facility] Status: Signed Intake Vital Signs 08/13/24 13:10 [...] of mastectomy (more content not included)... Normal [facility] Forearm 2 Viewson 08-13-2024 Forearm 2 Views [facility] Imaging Services [address] [place], [place] [address] Forearm 2 Views MR#: [id number] Acct: [id number] Name: CHRISTIAN LANDRUM Gabriella Rep #: [id number] : 1935 F 89 From: Obdulia Snider MD PCP: Dr. Payam Reyna MD Status: DEP AMB Study: Forearm 2 Views Date of Exam: 08/13/24 Exam# [id number] Ordering Dr: Carmella Deluca HEALTH POLICY ANALYST-C PROCEDURE: FOREARM 2 VIEWS 08/13/2024 REASON FOR [...] the 1st carpometacarpal joint. Osteopenia. Reading Location: [facility] CC: OLIVE Deluca; Dr. Payam Reyna MD Sheet Rock Sander: Signed Normal [facility] Humerus min 2 Viewson 2024 Humerus min 2 Views [facility] Imaging Services [address] [place] [id number] Humerus min 2 Views MR#: [id number] Acct: [id number] Name: CHRISTIAN LANDRUM Rep #: [id number] : 1935 F 89 From: Obdulia Snider MD PCP: Dr. Payam Reyna MD Status: DEP AMB Study: Humerus min 2 Views Date of Exam: 08/13/24 Exam# [id number] Ordering Dr: Carmella Deluca PROCEDURE: HUMERUS MIN [...] glenohumeral joint osteoarthrosis as above. Reading Location: [facility] CC: OLIVE Deluca; Dr. Payam Reyna MD Sheet Rock Sander: Signed Normal [facility] Orthopedic Visit Reporton Orthopedic Visit Report [facility] [address] [place] [address] OFFICE VISIT Date of Service: 08/13/24 MR#: [id number] Acct: [id number] Name: CHRISTIAN LANDRUM Rep #: [id number] : 1935 Provider: OLIVE manzo Age/Sex: 89/F Location: [facility] Status: Signed Intake Vital Signs 08/13/24 13:10 [...] the decisions made by me, Carmella Deluca, HEALTH POLICY ANALYST-C 08/13/24 4493. Part of today???s visit was documented by [...] bruising. Patient stays at facility and the HEALTH POLICY ANALYST there today reports a portable x-ray showed [...] Wrist/Hand Peña (more content not included)... Normal [facility] CT Abd/Pelvis W/WO Contrasto n 08-06-2024 CT Abd/Pelvis W/WO Contrast [facility] Imaging Services [address] [place] [address] CT Abd/Pelvis W/WO Contrast MR#: [id number] Acct: [id number] Name: CHRISTIAN LANDRUM Rep #: [id number] : 1935 F 89 From: Mallika wyatt MD PCP: Dr. Payam Reyna MD Status: REG CLI Study: CT Abd/Pelvis W/WO Contrast Date of Exam: 07/16 06/08 Exam# [id number] Ordering Dr: Hiwot Abdullahi MD PROCEDURE: CT [...] the stomach suggestive of gastritis. Reading Location: [place] [address] CC: Dr. Payam Reyna MD; Dr. Hiwot Abdullahi MD Sheet Rock Sander: Signed Normal [facility] Absolute lymphocyte countOrd ered By: Payam Reyna on 08-02-2024 Lymphocytes Auto (Unsp spec) [#/Vol] 0.96 10*3/uL 0.83-4.51 [facility] Absolute neutrophil countOrd ered By: Payam Reyna on 08-02-2024 Neutrophils (Bld) [#/Vol] 4.6 10*3/uL 2.0-7.7 [facility] Anion gap in Serum or Plasma Ordered By: Payam Reyna on 08-02-2024 Anion gap [Moles/Vol] 9 mmol/L 5-15 [facility] Automated lymphocyte count a s percentage of total leukocytesOrdered By: Payam Reyna on 08-02-2024 Lymphocytes/100 WBC Auto (Unsp spec) 15.0 % Low 19-41 [facility] BUN/creatinine ratioOrdered By: Payam Reyna on 08-02-2024 Urea nitrogen/Creatinine [Mass ratio] 27.8 mg/mg High 10-20 [facility] Basophil percentageOrdered B y: Payam Reyna on 08-02-2024 Basophils/100 WBC (Bld) 0.6 % 0-1 [facility] Bilirubin, totalOrdered By: Payam Reyna on 08-02-2024 Bilirubin [Mass/Vol] 0.73 mg/dL 0.00-1.30 [facility] Carbon dioxide, total [Moles /volume] in Central venous bloodOrdered By: Payam Reyna on 08-02-2024 CO2 [Moles/Vol] 23.8 mmol/L 21.0-32.0 [facility] Chloride assayOrdered By: Angelito Reyna on 08-02-2024 Chloride [Moles/Vol] 104 mmol/L 98-108 [facility] Eosinophil percentageOrdered By: arline Reyna on 08-02-2024 Eosinophils/100 WBC (Bld) 1.4 % 0-5 [facility] Erythrocyte distribution wid th ratioOrdered By: Payam Reyna on 08-02-2024 Erythrocyte distribution width (RBC) [Ratio] 16.2 % High 11.6-14.6 [facility] Erythrocyte distribution wid th standard deviationOrdered By: Payam Reyna on 08-02-2024 Erythrocyte distribution width (RBC) [Ratio] 58.4 fl High 35.1-43.9 [facility] Glomerular filtration rate ( GFR) estimation/1.73 sq m using serum, plasma, or whole bOrdered By: Payam Reyna on 08-02-2024 GFR/1.73 sq M.predicted among non-blacks MDRD (S/P/Bld) [Vol rate/Area] 87 mL/min/{1.73_m2} >60 [facility] Comment on above: mL/min/1.73m2 CKD-EP I Creatinine Equation (2020) Hematocrit Auto (Bld) [Volum e fraction]Ordered By: Payam Reyna on 08-02-2024 Hematocrit (Bld) [Volume fraction] 36.7 % Low 37-47 [facility] Hemoglobin measurementOrdere d By: Payam Reyna on 08-02-2024 Hemoglobin (Bld) [Mass/Vol] 12.1 g/dL 12.0-15.0 [facility] Immature granulocytes/100 WB C Auto (Bld)Ordered By: Payam Reyna on 08-02-2024 Immature granulocytes/100 WBC (Bld) 0.800 % 0.0-0.9 [facility] Comment on above: IG% - Immature Granu locytes (promyelocytes, myelocytes and metamyelocytes) > 1% indicates that a LEFT SHIFT is Present. Laboratory - Chemistry and C hemistry - challengeOrdered By: Payam Reyna on 08-02-2024 AST [Catalytic activity/Vol] 33 U/L High <32 [facility] MCV (mean corpuscular volume ) determinationOrdered By: Payam Reyna on 08-02-2024 MCV (RBC) [Entitic vol] 98.4 fL 81-99 [facility] Mean corpuscular hemoglobin (MCH) determinationOrdered By: merylbuena vistagarfield Reyna 08-02-2024 MCH (RBC) [Entitic mass] 32.4 pg High 27.0-32.0 [facility] Mean corpuscular hemoglobin concentration (MCHC) determinationOrdered By: Payam Reyna 08-02-2024 MCHC (RBC) [Mass/Vol] 33.0 g/dL 32-36 [facility] Mean platelet volume determi nationOrdered By: Payam Reyna on 08-02-2024 Platelet mean volume (Bld) [Entitic vol] 9.4 fL 6.2-12.0 [facility] Monocyte percentageOrdered B y: Payam Reyna on 08-02-2024 Monocytes/100 WBC (Bld) 10.5 % High 0-10 [facility] Neutrophil percentageOrdered By: Payam Reyna on 08-02-2024 Neutrophils/100 WBC (Bld) 71.7 % High 47-70 [facility] Nucleated red blood cell per centageOrdered By: Payam Reyna on 08-02-2024 Nucleated RBC/100 WBC (Bld) [Ratio] 0 % 0-5 [facility] Platelet countOrdered By: Angelito Reyna on 08-02-2024 Platelets (Bld) [#/Vol] 141 10*3/uL Low 150-450 [facility] Potassium measurement (mass/ volume)Ordered By: Payam Reyna on 08-02-2024 Potassium (Unsp spec) [Mass/Vol] 4.4 mmol/L 3.3-5.1 [facility] RBC Auto (Bld) [#/Vol]Ordere d By: Payam Reyna on 08-02-2024 RBC (Bld) [#/Vol] 3.73 10*6/uL Low 4.2-5.4 [facility] Serum creatinine measurement (mass/volume)Ordered By: Payam Reyna on 08-02-2024 Creatinine [Mass/Vol] 0.58 mg/dL Low 0.70-1.20 [facility] Serum globulin measurementOr dered By: Payam Reyna on 08-02-2024 Globulin (S) [Mass/Vol] 3.7 g/dL 2.2-4.2 [facility] Serum glucose measurement (m ass/volume)Ordered By: Payam Reyna on 08-02-2024 Glucose [Mass/Vol] 79 mg/dL 70-99 [facility] Serum or plasma alanine cheatham otransferase (ALT) measurementOrdered By: Payam Reyna on 08-02-2024 ALT [Catalytic activity/Vol] 34 U/L <35 [facility] Serum or plasma albumin yonatan urement (mass/volume)Ordered By: Payam Gopalrejialyssa on 08-02-2024 Albumin [Mass/Vol] 3.4 g/dL 3.4-4.8 [facility] Serum or plasma albumin/glob ulin mass ratioOrdered By: Jamisongarfield Herronrejialyssa on 08-02-2024 Albumin/Globulin [Mass ratio] 0.9 {ratio} 0.9-2.4 [facility] Serum or plasma alkaline shannon sphatase measurementOrdered By: Jamisongarfield Herronrejialyssa on 08-02-2024 ALP [Catalytic activity/Vol] 63 U/L 35-104 [facility] Serum or plasma calcium yonatan urement (mass/volume)Ordered By: Jamisongarfield Herronrejialyssa on 08-02-2024 Calcium [Mass/Vol] 9.2 mg/dL 7.6-11.0 [facility] Serum or plasma urea nitroge n measurement (mass/volume)Ordered By: Jamisongarfield Reyna on 08-02-2024 Urea nitrogen [Mass/Vol] 16 mg/dL 4-19 [facility] Sodium levelOrdered By: Angelitomeryl ailyn Gopalrejialyssa on 08-02-2024 Sodium [Moles/Vol] 137 mmol/L 133-145 [facility] Total proteinOrdered By: Fredy ritter Maribell on 08-02-2024 Protein [Mass/Vol] 7.1 g/dL 5.9-8.4 [facility] White blood cell (WBC) count Ordered By: Angelitomerylmichaelgarfield Reyna on 08-02-2024 WBC (Bld) [#/Vol] 6.4 10*3/uL 4.4-11.0 [facility] Clostridium difficile detect ion by polymerase chain reactionOrdered By: Angelitoarline Reyna on 07-08-2024 C. difficile DNA DEMARCUS+probe Ql (Unsp spec) [facility] Stool lactoferrin detection by immunoassayOrdered By: Angelitoarline Reyna 07-08-2024 Lactoferrin IA Ql (Stl) [facility] International normalized rat io (INR) calculationOrdered By: Payam Reyna on 07-07-2024 INR Coag (Bld) [Relative time] 1.2 {INR} [facility] Prothrombin timeOrdered By: Payam Reyna on 07-07-2024 PT Coag (PPP) [Time] 15.5 s High 11.7-14.9 [facility] T4 freeOrdered By: Payam Reyna on 07-07-2024 Free T4 [Mass/Vol] 0.80 ng/dL 0.76-1.46 [facility] TSH DL <= 0.005 mIU/L QnOrde red By: Payam Reyna on 07-07-2024 TSH Qn 1.430 uIU/mL 0.300-4.200 [facility] Absolute lymphocyte countOrd ered By: Payam Reyna on 07-05-2024 Lymphocytes Auto (Unsp spec) [#/Vol] 0.92 10*3/uL 0.83-4.51 [facility] Absolute neutrophil countOrd ered By: Payam Reyna on 07-05-2024 Neutrophils (Bld) [#/Vol] 4.1 10*3/uL 2.0-7.7 [facility] Anion gap in Serum or Plasma Ordered By: Payam Reyna on 07-05-2024 Anion gap [Moles/Vol] 9 mmol/L 5-15 [facility] Automated lymphocyte count a s percentage of total leukocytesOrdered By: Payam Reyna on 07-05-2024 Lymphocytes/100 WBC Auto (Unsp spec) 15.9 % Low 19-41 [facility] BUN/creatinine ratioOrdered By: Payam Reyna on 07-05-2024 Urea nitrogen/Creatinine [Mass ratio] 20.6 mg/mg High 10-20 [facility] Basophil percentageOrdered B y: Payam Reyna on 07-05-2024 Basophils/100 WBC (Bld) 0.5 % 0-1 [facility] Bilirubin, totalOrdered By: Payam Reyna on 07-05-2024 Bilirubin [Mass/Vol] 0.72 mg/dL 0.00-1.30 [facility] Carbon dioxide, total [Moles /volume] in Central venous bloodOrdered By: Payam Reyna on 07-05-2024 CO2 [Moles/Vol] 24.8 mmol/L 21.0-32.0 [facility] Chloride assayOrdered By: Angelito Reyna on 07-05-2024 Chloride [Moles/Vol] 103 mmol/L 98-108 [facility] Eosinophil percentageOrdered By: Payam Reyna on 07-05-2024 Eosinophils/100 WBC (Bld) 1.2 % 0-5 [facility] Erythrocyte distribution wid th ratioOrdered By: Payam Reyna on 07-05-2024 Erythrocyte distribution width (RBC) [Ratio] 15.9 % High 11.6-14.6 [facility] Erythrocyte distribution wid th standard deviationOrdered By: Payam Reyna on 07-05-2024 Erythrocyte distribution width (RBC) [Ratio] 55.2 fl High 35.1-43.9 [facility] Glomerular filtration rate ( GFR) estimation/1.73 sq m using serum, plasma, or whole bOrdered By: Payam Reyna on 07-05-2024 GFR/1.73 sq M.predicted among non-blacks MDRD (S/P/Bld) [Vol rate/Area] 87 mL/min/{1.73_m2} >60 [facility] Comment on above: mL/min/1.73m2 CKD-EP I Creatinine Equation (2020) Hematocrit Auto (Bld) [Volum e fraction]Ordered By: Payam Reyna on 07-05-2024 Hematocrit (Bld) [Volume fraction] 31.0 % Low 37-47 [facility] Hemoglobin A1c percentageOrd ered By: Payam Reyna on 07-05-2024 HbA1c (Bld) [Mass fraction] 5.0 % <5.7 [facility] Comment on above: Normal < 5.7 % Predi abetic 5.7 - 6.4 % Diabetic >or= 6.5 % Please note range changes. Hemoglobin measurementOrdere d By: Payam Reyna on 07-05-2024 Hemoglobin (Bld) [Mass/Vol] 10.3 g/dL Low 12.0-15.0 [facility] Immature granulocytes/100 WB C Auto (Bld)Ordered By: Payam Reyna on 07-05-2024 Immature granulocytes/100 WBC (Bld) 0.700 % 0.0-0.9 [facility] Comment on above: IG% - Immature Granu locytes (promyelocytes, myelocytes and metamyelocytes) > 1% indicates that a LEFT SHIFT is Present. Laboratory - Chemistry and C hemistry - challengeOrdered By: Payam Reyna on 07-05-2024 AST [Catalytic activity/Vol] 32 U/L <32 [facility] MCV (mean corpuscular volume ) determinationOrdered By: Payam Reyna on 07-05-2024 MCV (RBC) [Entitic vol] 95.7 fL 81-99 [facility] Mean corpuscular hemoglobin (MCH) determinationOrdered By: Payam Reyna on 07-05-2024 MCH (RBC) [Entitic mass] 31.8 pg 27.0-32.0 [facility] Mean corpuscular hemoglobin concentration (MCHC) determinationOrdered By: Payam Reyna on 07-05-2024 MCHC (RBC) [Mass/Vol] 33.2 g/dL 32-36 [facility] Mean platelet volume determi nationOrdered By: Payam Reyna on 07-05-2024 Platelet mean volume (Bld) [Entitic vol] 9.6 fL 6.2-12.0 [facility] Monocyte percentageOrdered B y: Payam Reyna on 07-05-2024 Monocytes/100 WBC (Bld) 11.3 % High 0-10 [facility] Neutrophil percentageOrdered By: arline Reyna on 07-05-2024 Neutrophils/100 WBC (Bld) 70.4 % High 47-70 [facility] Nucleated red blood cell per centageOrdered By: Payam Reyna on 07-05-2024 Nucleated RBC/100 WBC (Bld) [Ratio] 0 % 0-5 [facility] Platelet countOrdered By: Angelito Reyna on 07-05-2024 Platelets (Bld) [#/Vol] 151 10*3/uL 150-450 [facility] Potassium measurement (mass/ volume)Ordered By: Payam Reyna on 07-05-2024 Potassium (Unsp spec) [Mass/Vol] 4.0 mmol/L 3.3-5.1 [facility] RBC Auto (Bld) [#/Vol]Ordere d By: Payam Reyna on 07-05-2024 RBC (Bld) [#/Vol] 3.24 10*6/uL Low 4.2-5.4 [facility] Serum creatinine measurement (mass/volume)Ordered By: Payam Reyna on 07-05-2024 Creatinine [Mass/Vol] 0.59 mg/dL Low 0.70-1.20 [facility] Serum globulin measurementOr dered By: Payam Reyna on 07-05-2024 Globulin (S) [Mass/Vol] 3.3 g/dL 2.2-4.2 [facility] Serum glucose measurement (m ass/volume)Ordered By: Payam Reyna on 07-05-2024 Glucose [Mass/Vol] 76 mg/dL 70-99 [facility] Serum or plasma alanine cheatham otransferase (ALT) measurementOrdered By: Payam Reyna on 07-05-2024 ALT [Catalytic activity/Vol] 23 U/L <35 [facility] Serum or plasma albumin yonatan urement (mass/volume)Ordered By: Payam Reyna on 07-05-2024 Albumin [Mass/Vol] 2.9 g/dL Low 3.4-4.8 [facility] Serum or plasma albumin/glob ulin mass ratioOrdered By: Payam Reyna on 07-05-2024 Albumin/Globulin [Mass ratio] 0.9 {ratio} 0.9-2.4 [facility] Serum or plasma alkaline shannon sphatase measurementOrdered By: Payam Reyna on 07-05-2024 ALP [Catalytic activity/Vol] 46 U/L 35-104 [facility] Serum or plasma calcium yonatan urement (mass/volume)Ordered By: Payam Reyna on 07-05-2024 Calcium [Mass/Vol] 8.9 mg/dL 7.6-11.0 [facility] Serum or plasma urea nitroge n measurement (mass/volume)Ordered By: Payam Reyna on 07-05-2024 Urea nitrogen [Mass/Vol] 12 mg/dL 4-19 [facility] Sodium levelOrdered By: Jas Reyna on 07-05-2024 Sodium [Moles/Vol] 137 mmol/L 133-145 [facility] Total proteinOrdered By: Fredy Reyna on 07-05-2024 Protein [Mass/Vol] 6.3 g/dL 5.9-8.4 [facility] White blood cell (WBC) count Ordered By: Payam Reyna on 07-05-2024 WBC (Bld) [#/Vol] 5.8 10*3/uL 4.4-11.0 [facility] Hemoglobin A1c percentageOrd ered By: Payam Reyna on 06-16-2024 HbA1c (Bld) [Mass fraction] 5.0 % Low >5.7 [facility] CBC W Auto Differential pane l (Bld)on 06-11-2024 Basophils (Bld) [#/Vol] [facility] Basophils/100 WBC (Bld) 0.3 % [facility] Differential cell count method Nom (Bld) Auto [facility] Eosinophils (Bld) [#/Vol] [facility] Eosinophils/100 WBC (Bld) 0.1 % [facility] Erythrocyte distribution width (RBC) [Ratio] 15.7 % High 11.5 - 15.0 % [facility] Hematocrit (Bld) [Volume fraction] 34.9 % Low 36.0 - 46.0 % [facility] Hemoglobin (Bld) [Mass/Vol] 11 g/dL Low 11.5 - 15.5 g/dL [facility] Immature granulocytes (Bld) [#/Vol] 0.06 10*3/uL [facility] Immature granulocytes/100 WBC (Bld) 0.8 % [facility] Interpretation and review of laboratory results Abnormal [facility] Lymphocytes (Bld) [#/Vol] 0.5 10*3/uL Low [facility] Lymphocytes/100 WBC (Bld) 7 % [facility] MCH (RBC) [Entitic mass] 30.6 pg 26.0 - 34.0 pg [facility] MCHC (RBC) [Mass/Vol] 31.5 g/dL 30.5 - 36.0 g/dL [facility] MCV (RBC) [Entitic vol] 97.2 fL 80.0 - 100.0 fL [facility] Monocytes (Bld) [#/Vol] 0.52 10*3/uL NINF [facility] Monocytes/100 WBC (Bld) 7.3 % [facility] Neutrophils (Bld) [#/Vol] 6 10*3/uL [facility] Neutrophils/100 WBC (Bld) 84.5 % [facility] Nucleated RBC (Bld) [#/Vol] NINF [facility] Nucleated RBC/100 WBC (Bld) [Ratio] 0 % /100 WBC [facility] Platelet mean volume (Bld) [Entitic vol] 9.8 fL 9.0 - 12.7 fL [facility] Platelets (Bld) [#/Vol] 141 10*3/uL Low [facility] RBC (Bld) [#/Vol] 3.59 10*6/uL Low 3.90 - 5.2 0 m/uL [facility] WBC (Bld) [#/Vol] 7.11 10*3/uL [facility] Comprehensive metabolic 2000 panelOrdered By: Pam Tate on 06-11-2024 Albumin [Mass/Vol] 3.5 g/dL Low 3.9 - 4.9 g/dL [facility] ALP [Catalytic activity/Vol] 64 U/L 34 - 123 U/L [facility] ALT [Catalytic activity/Vol] 26 U/L 7 - 38 U/L [facility] Anion gap [Moles/Vol] 11 mmol/L 8 - 15 mmol/L [facility] AST [Catalytic activity/Vol] 28 U/L 13 - 35 U/L [facility] Bilirubin [Mass/Vol] 0.6 mg/dL 0.2 - 1 .3 mg/dL [facility] Calcium [Mass/Vol] 9.1 mg/dL 8.5 - 10. 2 mg/dL [facility] Chloride [Moles/Vol] 104 mmol/L 98 - 10 7 mmol/L [facility] CO2 [Moles/Vol] 23 mmol/L 22 - 30 mmol/L [facility] Creatinine [Mass/Vol] 0.59 mg/dL 0.58 - 0.96 mg/dL [facility] GFR/1.73 sq M.predicted among non-blacks MDRD (S/P/Bld) [Vol rate/Area] 87 mL/min/{1.73_m2} - PINF [facility] Comment on above: Estimated Glomerular Filtration [...] 240 mg/dL High 74 - 99 mg/dL [facility] Comment on above: The [place] [employer] (ADA) provides guidance for [...] Standards of Medical Care in Diabetes 2016, [place] [employer]. Diabetes Care. 2016.39(Suppl 1). Interpretation and review of laboratory results Abnormal [facility] Potassium [Moles/Vol] 4.4 mmol/L 3.7 - 5.1 mmol/L [facility] Protein [Mass/Vol] 7.3 g/dL 6.3 - 8.0 g/dL [facility] Sodium [Moles/Vol] 138 mmol/L 136 - 144 mmol/L [facility] Urea nitrogen [Mass/Vol] 18 mg/dL 7 - 21 mg/dL [facility] Absolute lymphocyte countOrd ered By: Payam Reyna on 05-31-2024 Lymphocytes Auto (Unsp spec) [#/Vol] 1.03 10*3/uL 0.83-4.51 [facility] Absolute neutrophil countOrd ered By: Jasmichaelgarfield Herronrejialyssa on 05-31-2024 Neutrophils (Bld) [#/Vol] 3.8 10*3/uL 2.0-7.7 [facility] Anion gap in Serum or Plasma Ordered By: Payam Reyna on 05-31-2024 Anion gap [Moles/Vol] 9 mmol/L 5-15 [facility] Automated lymphocyte count a s percentage of total leukocytesOrdered By: Payam Reyna on 05-31-2024 Lymphocytes/100 WBC Auto (Unsp spec) 18.6 % Low 19-41 [facility] BUN/creatinine ratioOrdered By: arline Renya on 05-31-2024 Urea nitrogen/Creatinine [Mass ratio] 23.4 mg/mg High 10-20 [facility] Basophil percentageOrdered B y: Payam Reyna on 05-31-2024 Basophils/100 WBC (Bld) 0.5 % 0-1 [facility] Bilirubin, totalOrdered By: merylbuena vistagarfield Herronrejialyssa on 05-31-2024 Bilirubin [Mass/Vol] 0.51 mg/dL 0.00-1.30 [facility] Carbon dioxide, total [Moles /volume] in Central venous bloodOrdered By: Payam Reyna on 05-31-2024 CO2 [Moles/Vol] 23.7 mmol/L 21.0-32.0 [facility] Chloride assayOrdered By: arline Reyna on 05-31-2024 Chloride [Moles/Vol] 105 mmol/L 98-108 [facility] Eosinophil percentageOrdered By: arline Reyna on 05-31-2024 Eosinophils/100 WBC (Bld) 1.3 % 0-5 [facility] Erythrocyte distribution wid th (RBC) [Ratio]Ordered By: Payam Reyna on 05-31-2024 Erythrocyte distribution width (RBC) [Entitic vol] 56.2 fL High 35.1-43.9 [facility] Erythrocyte distribution wid th ratioOrdered By: arline Herronrejialyssa on 05-31-2024 Erythrocyte distribution width (RBC) [Ratio] 15.9 % High 11.6-14.6 [facility] Erythrocyte distribution wid th standard deviationOrdered By: Payam Reyna on 05-31-2024 Erythrocyte distribution width (RBC) [Ratio] 56.2 fl High 35.1-43.9 [facility] GFR/1.73 sq M.predicted lei g non-blacks MDRD (S/P/Bld) [Vol rate/Area]Ordered By: Payam Reyna on 05-31-2024 Estimated GFR (MDRD) Non-Af Amer 85 >60 [facility] Comment on above: mL/min/1.73m2 CKD-EP I Creatinine Equation (2020) Glomerular filtration rate ( GFR) estimation/1.73 sq m using serum, plasma, or whole bOrdered By: Payam Reyna on 05-31-2024 GFR/1.73 sq M.predicted among non-blacks MDRD (S/P/Bld) [Vol rate/Area] 85 mL/min/{1.73_m2} >60 [facility] Comment on above: mL/min/1.73m2 CKD-EP I Creatinine Equation (2020) Hematocrit Auto (Bld) [Volum e fraction]Ordered By: Payam Reyna on 05-31-2024 Hematocrit (Bld) [Volume fraction] 30.7 % Low 37-47 [facility] Hemoglobin measurementOrdere d By: Payam Reyna on 05-31-2024 Hemoglobin (Bld) [Mass/Vol] 9.7 g/dL Low 12.0-15.0 [facility] Immature granulocytes/100 WB C Auto (Bld)Ordered By: Payam Reyna on 05-31-2024 Immature granulocytes/100 WBC (Bld) 0.400 % 0.0-0.9 [facility] Comment on above: IG% - Immature Granu locytes (promyelocytes, myelocytes and metamyelocytes) > 1% indicates that a LEFT SHIFT is Present. Laboratory - Chemistry and C hemistry - challengeOrdered By: Payam Reyna on 05-31-2024 AST [Catalytic activity/Vol] 29 U/L <32 [facility] Lymphocytes Auto (Unsp spec) [#/Vol]Ordered By: Payam Herronrejialyssa on 05-31-2024 Lymphocytes (Bld) [#/Vol] 1.03 10*3/uL 0.83-4.51 [facility] Lymphocytes/100 WBC Auto (Un sp spec)Ordered By: Payam Herronrejialyssa on 05-31-2024 Lymphocytes/100 WBC (Bld) 18.6 % Low 19-41 [facility] MCV (mean corpuscular volume ) determinationOrdered By: Payam Reyna on 05-31-2024 MCV (RBC) [Entitic vol] 96.8 fL 81-99 [facility] Mean corpuscular hemoglobin (MCH) determinationOrdered By: Paaym Reyna on 05-31-2024 MCH (RBC) [Entitic mass] 30.6 pg 27.0-32.0 [facility] Mean corpuscular hemoglobin concentration (MCHC) determinationOrdered By: Payam Reyna on 05-31-2024 MCHC (RBC) [Mass/Vol] 31.6 g/dL Low 32-36 [facility] Mean platelet volume determi nationOrdered By: Payam Reyna on 05-31-2024 Platelet mean volume (Bld) [Entitic vol] 9.8 fL 6.2-12.0 [facility] Monocyte percentageOrdered B y: Payam Reyna on 05-31-2024 Monocytes/100 WBC (Bld) 10.3 % High 0-10 [facility] Neutrophil percentageOrdered By: Payam Reyna on 05-31-2024 Neutrophils/100 WBC (Bld) 68.9 % 47-70 [facility] Nucleated red blood cell per centageOrdered By: Payam Reyna on 05-31-2024 Nucleated RBC/100 WBC (Bld) [Ratio] 0 % 0-5 [facility] Platelet countOrdered By: Ef arline Reyna on 05-31-2024 Platelets (Bld) [#/Vol] 126 10*3/uL Low 150-450 [facility] Potassium (Unsp spec) [Mass/ Vol]Ordered By: Payam Reyna on 05-31-2024 Potassium [Moles/Vol] 4.0 mmol/L 3.3-5.1 [facility] Potassium measurement (mass/ volume)Ordered By: Payam Reyna on 05-31-2024 Potassium (Unsp spec) [Mass/Vol] 4.0 mmol/L 3.3-5.1 [facility] RBC Auto (Bld) [#/Vol]Ordere d By: Payam Reyna on 05-31-2024 RBC (Bld) [#/Vol] 3.17 10*6/uL Low 4.2-5.4 [facility] Serum creatinine measurement (mass/volume)Ordered By: Payam Reyna on 05-31-2024 Creatinine [Mass/Vol] 0.65 mg/dL Low 0.70-1.20 [facility] Serum globulin measurementOr dered By: Payam Reyna on 05-31-2024 Globulin (S) [Mass/Vol] 3.4 g/dL 2.2-4.2 [facility] Serum glucose measurement (m ass/volume)Ordered By: Payam Reyna on 05-31-2024 Glucose [Mass/Vol] 76 mg/dL 70-99 [facility] Serum or plasma alanine cheatham otransferase (ALT) measurementOrdered By: Payam Reyna on 05-31-2024 ALT [Catalytic activity/Vol] 29 U/L <35 [facility] Serum or plasma albumin yonatan urement (mass/volume)Ordered By: Payam Reyna on 05-31-2024 Albumin [Mass/Vol] 3.1 g/dL Low 3.4-4.8 [facility] Serum or plasma albumin/glob ulin mass ratioOrdered By: Payam Reyna on 05-31-2024 Albumin/Globulin [Mass ratio] 0.9 {ratio} 0.9-2.4 [facility] Serum or plasma alkaline shannon sphatase measurementOrdered By: Payam Reyna on 05-31-2024 ALP [Catalytic activity/Vol] 49 U/L 35-104 [facility] Serum or plasma calcium yonatan urement (mass/volume)Ordered By: Payam Reyna on 05-31-2024 Calcium [Mass/Vol] 9.0 mg/dL 7.6-11.0 [facility] Serum or plasma urea nitroge n measurement (mass/volume)Ordered By: Payam Reyna on 05-31-2024 Urea nitrogen [Mass/Vol] 15 mg/dL 4-19 [facility] Sodium levelOrdered By: Jas traceynicole Maribell on 05-31-2024 Sodium [Moles/Vol] 138 mmol/L 133-145 [facility] Total proteinOrdered By: Fredyalyssa brookegarfield Reyna on 05-31-2024 Protein [Mass/Vol] 6.5 g/dL 5.9-8.4 [facility] Vitamin D, 25-hydroxyOrdered By: Payam Reyna on 05-31-2024 Vitamin D 25-Hydroxy 32.7 ng/mL 30-100 [facility] Comment on above: Vitamin D StatusDefi ciency: <20 ng/mL (50nmol/L)Insufficiency: 20-30 ng/mL (50-75 nmol/L)Sufficiency: 30-100 ng/mL (75-250 nmol/L)Toxicity: >100 ng/mL (>250 nmol/L) White blood cell (WBC) count Ordered By: Payam Reyna on 05-31-2024 WBC (Bld) [#/Vol] 5.6 10*3/uL 4.4-11.0 [facility] Bacteria LM.HPF (Urine sed) [#/Area]Ordered By: Payam Reyna on 05-13-2024 Urine Bacteria RARE /hpf None Seen [facility] Bilirubin Test strip Ql (U)O rdered By: Payam Reyna on 05-13-2024 Bilirubin Ql (U) Negative Negative [facility] Epithelial cells.squamous LM Ql (Urine sed)Ordered By: Payam Reyna on 05-13-2024 Epithelial cells.squamous LM.HPF (Urine sed) [#/Area] 0 /[HPF] 5-10 [facility] Glucose Ql (U)Ordered By: Angelito Reyna on 05-13-2024 Urine Glucose (UA) Normal mg/dl Normal [facility] Ketones Test strip Ql (U)Ord ered By: Payam Reyna on 05-13-2024 Ketones Ql (U) Negative Negative [facility] Microscopic analysis of urin e for red blood cells (RBC)Ordered By: Payam Reyna on 05-13-2024 Microscopic analysis of urine for red blood cells (RBC) 0-5 SEEN /hpf 0-5 [facility] Urine RBC 0-5 SEEN /hpf 0-5 [facility] Mucus LM Ql (Urine sed)Order ed By: Payam Reyna on 05-13-2024 Mucus Ql (Urine sed) 0 SEEN /hpf [facility] Nitrite Test strip Ql (U)Ord ered By: Payam Reyna on 05-13-2024 Nitrite Ql (U) Positive High Negative [facility] Protein Test strip Ql (U)Ord ered By: Payam Reyna on 05-13-2024 Protein Ql (U) Negative Negative [facility] Squamous epithelial cells de tection in urine sediment by light microscopyOrdered By: Payam Reyna on 05-13-2024 Epithelial cells.squamous LM Ql (Urine sed) 0-5 SEEN /hpf 5-10 [facility] Urine blood detectionOrdered By: Payam Reyna on 05-13-2024 Urine Occult Blood 10 /ul High Negative [facility] Urine clarityOrdered By: Fredy Reyna on 05-13-2024 Clarity (U) Clear Clear [facility] Urine color determinationOrd ered By: Payam Reyna on 05-13-2024 Color (U) Yellow Yellow [facility] Urine cultureOrdered By: Fredy Reyna on 05-13-2024 Bacteria identified Cx Nom (U) Escherichia coli Abnormal [facility] Urine glucose detectionOrder ed By: Payam Reyna on 05-13-2024 Glucose Ql (U) Normal mg/dl Normal [facility] Urine leukocyte esterase det ection by dipstickOrdered By: Payam Reyna on 05-13-2024 Leukocyte esterase Test strip Ql (U) 100 /ul High Negative [facility] Urine pHOrdered By: Deloris claros Gopalrejialyssa on 05-13-2024 pH (U) 6.5 [pH] 5.0 - 8.0 [facility] Urine sediment bacteria coun t by microscopy (number/high power field)Ordered By: Angelitomerylailyn Ramirezalyssa on 05-13-2024 Bacteria LM.HPF (Urine sed) [#/Area] RARE /hpf None Seen [facility] Urine specific gravity measu rementOrdered By: Angelitomerylailyn Gopalrejialyssa on 05-13-2024 Specific gravity (U) [Rel density] 1.010 1.002-1.030 [facility] Urine urobilinogen measureme ntOrdered By: Jasmichaelgarfield Herronrejialyssa on 05-13-2024 Urobilinogen Ql (U) Normal mg/dl Normal [facility] Urobilinogen Ql (U)Ordered B y: Jasailyn Gopalrejialyssa on 05-13-2024 Urine Urobilinogen Normal mg/dl Normal [facility] White blood cell countOrdere d By: Angelitomerylailyn Ramirezalyssa on 05-13-2024 Urine WBC 0-5 SEEN /hpf 0-5 [facility] White blood cell count 0-5 SEEN /hpf 0-5 [facility] Absolute lymphocyte countOrd ered By: Payam Ramirezalyssa on 05-03-2024 Lymphocytes Auto (Unsp spec) [#/Vol] 1.13 10*3/uL 0.83-4.51 [facility] Absolute neutrophil countOrd ered By: Angelitomerylmichaelgarfield Herronrejialyssa on 05-03-2024 Neutrophils (Bld) [#/Vol] 5.1 10*3/uL 2.0-7.7 [facility] Albumin to globulin ratioOrd ered By: Payam Ramirezalyssa on 05-03-2024 Albumin/Globulin [Mass ratio] 0.5 {ratio} Low 0.9-2.4 [facility] Automated lymphocyte count a s percentage of total leukocytesOrdered By: Angelitomerylmichaelgarfield Herronrejialyssa on 05-03-2024 Lymphocytes/100 WBC Auto (Unsp spec) 16.1 % Low 19-41 [facility] Basophil percentageOrdered B y: Jamisongarfield Herronrejialyssa on 05-03-2024 Basophils/100 WBC (Bld) 0.6 % 0-1 [facility] Bilirubin Test strip Ql (U)O rdered By: Payam Reyna on 05-03-2024 Bilirubin Ql (U) Negative Negative [facility] Bilirubin, totalOrdered By: Payam Reyna on 05-03-2024 Bilirubin [Mass/Vol] 0.60 mg/dL 0.20-1.00 [facility] Comment on above: For patients on eltr ombopag therapy, use of Dimension [place] TBIL is not recommended. Blood urea nitrogen (BUN)/cr eatinine ratioOrdered By: Payam Reyna on 05-03-2024 Urea nitrogen/Creatinine [Mass ratio] 22.8 mg/mg High 10-20 [facility] Carbon dioxide measurementOr dered By: Payam Reyna on 05-03-2024 CO2 [Moles/Vol] 26.0 mmol/L 21.0-32.0 [facility] Chloride measurementOrdered By: Payam Reyna on 05-03-2024 Chloride [Moles/Vol] 108 mmol/L High 98-107 [facility] Eosinophil percentageOrdered By: Payam Reyna on 05-03-2024 Eosinophils/100 WBC (Bld) 1.1 % 0-5 [facility] Erythrocyte distribution wid th (RBC) [Ratio]Ordered By: Payam Reyna on 05-03-2024 Erythrocyte distribution width (RBC) [Entitic vol] 62.4 fL High 35.1-43.9 [facility] Erythrocyte distribution wid th ratioOrdered By: Payam Reyna on 05-03-2024 Erythrocyte distribution width (RBC) [Ratio] 17.4 % High 11.6-14.6 [facility] Erythrocyte distribution wid th standard deviationOrdered By: Payam Reyna on 05-03-2024 Erythrocyte distribution width (RBC) [Ratio] 62.4 fl High 35.1-43.9 [facility] Estimated glomerular filtrat ion rate (GFR) AmericanOrdered By: Payam Renya on 05-03-2024 Estimated GFR (MDRD) Amer 95 mL/min >60 [facility] Comment on above: GFR Calc Glomerular filtration rate ( GFR) estimationOrdered By: Payam Reyna on 05-03-2024 Estimated GFR (MDRD) Non-Af Amer 78 mL/min >60 [facility] Comment on above: Non- GFR Calc GFR/1.73 sq M.predicted among non-blacks MDRD (S/P/Bld) [Vol rate/Area] 78 mL/min/{1.73_m2} >60 [facility] Comment on above: Non- GFR Calc Glucose Ql (U)Ordered By: Angelito Reyna on 05-03-2024 Urine Glucose (UA) Normal mg/dl Normal [facility] Glucose measurementOrdered B y: Payam Reyna on 05-03-2024 Glucose [Mass/Vol] 69 mg/dL Low 74-106 [facility] Hematocrit Auto (Bld) [Volum e fraction]Ordered By: Payam Reyna on 05-03-2024 Hematocrit (Bld) [Volume fraction] 29.8 % Low 37-47 [facility] Hemoglobin measurementOrdere d By: Jasmichaelgarfield Reyna on 05-03-2024 Hemoglobin (Bld) [Mass/Vol] 9.1 g/dL Low 12.0-15.0 [facility] Immature granulocytes/100 WB C Auto (Bld)Ordered By: Payam Reyna on 05-03-2024 Immature granulocytes/100 WBC (Bld) 0.400 % 0.0-0.9 [facility] Comment on above: IG% - Immature Granu locytes (promyelocytes, myelocytes and metamyelocytes) > 1% indicates that a LEFT SHIFT is Present. Ketones Test strip Ql (U)Ord ered By: Payam Reyna on 05-03-2024 Ketones Ql (U) Negative Negative [facility] Laboratory - Chemistry and C hemistry - challengeOrdered By: Payam Reyna on 05-03-2024 AST [Catalytic activity/Vol] 34 U/L 15-37 [facility] Lymphocytes Auto (Unsp spec) [#/Vol]Ordered By: Payam Reyna on 05-03-2024 Lymphocytes (Bld) [#/Vol] 1.13 10*3/uL 0.83-4.51 [facility] Lymphocytes/100 WBC Auto (Un sp spec)Ordered By: Payam Reyna on 05-03-2024 Lymphocytes/100 WBC (Bld) 16.1 % Low 19-41 [facility] MCV (mean corpuscular volume ) determinationOrdered By: Payam Reyna on 05-03-2024 MCV (RBC) [Entitic vol] 99.0 fL 81-99 [facility] Mean corpuscular hemoglobin (MCH) determinationOrdered By: Payam Reyna on 05-03-2024 MCH (RBC) [Entitic mass] 30.2 pg 27.0-32.0 [facility] Mean corpuscular hemoglobin concentration (MCHC) determinationOrdered By: Payam eRyna on 05-03-2024 MCHC (RBC) [Mass/Vol] 30.5 g/dL Low 32-36 [facility] Mean platelet volume determi nationOrdered By: Payam Reyna on 05-03-2024 Platelet mean volume (Bld) [Entitic vol] 9.4 fL 6.2-12.0 [facility] Monocyte percentageOrdered B y: Payam Reyna on 05-03-2024 Monocytes/100 WBC (Bld) 9.7 % 0-10 [facility] Neutrophil percentageOrdered By: Payam Reyna on 05-03-2024 Neutrophils/100 WBC (Bld) 72.1 % High 47-70 [facility] Nitrite Test strip Ql (U)Ord ered By: Payam Reyna on 05-03-2024 Nitrite Ql (U) Negative Negative [facility] Nucleated red blood cell per centageOrdered By: Payam Reyna on 05-03-2024 Nucleated RBC/100 WBC (Bld) [Ratio] 0 % 0-5 [facility] Platelet countOrdered By: Angelito Reyna on 05-03-2024 Platelets (Bld) [#/Vol] 163 10*3/uL 150-450 [facility] Potassium measurementOrdered By: Payam Reyna on 05-03-2024 Potassium [Moles/Vol] 4.3 mmol/L 3.5-5.1 [facility] Protein Test strip Ql (U)Ord ered By: Angelitoarline Gopalrejialyssa on 05-03-2024 Protein Ql (U) Negative Negative [facility] RBC Auto (Bld) [#/Vol]Ordere d By: Jasmichaelgarfield Herronjodi on 05-03-2024 RBC (Bld) [#/Vol] 3.01 10*6/uL Low 4.2-5.4 [facility] Serum anion gap measurementO rdered By: Payam Herronrejialyssa on 05-03-2024 Anion gap [Moles/Vol] 7 mmol/L 5-15 [facility] Serum globulin measurementOr dered By: Payam Herronrejialyssa on 05-03-2024 Globulin (S) [Mass/Vol] 4.8 g/dL High 2.2-4.2 [facility] Serum or plasma alanine cheatham otransferase (ALT) measurementOrdered By: Payam Reyna on 05-03-2024 ALT [Catalytic activity/Vol] 31 U/L 13-56 [facility] Serum or plasma albumin yonatan urement (mass/volume)Ordered By: Payam Herronrejialyssa on 05-03-2024 Albumin [Mass/Vol] 2.3 g/dL Low 3.2-5.0 [facility] Serum or plasma alkaline shannon sphatase measurementOrdered By: Payam Reyna 05-03-2024 ALP [Catalytic activity/Vol] 57 U/L 45-117 [facility] Serum or plasma calcium yonatan urement (mass/volume)Ordered By: Payam Herronrejialyssa on 05-03-2024 Calcium [Mass/Vol] 8.9 mg/dL 8.5-10.1 [facility] Serum or plasma creatinine m easurement (mass/volume)Ordered By: Payam Herronrejialyssa on 05-03-2024 Creatinine [Mass/Vol] 0.74 mg/dL 0.55-1.02 [facility] Comment on above: The validity of the calculated GFR & GFRAA in patients over 70 years has not been determined. Clinical correlation is essential. Serum or plasma thyroid stim ulating hormone (TSH) measurement (units/volume)Ordered By: Payam Reyna on 05-03-2024 TSH Qn 1.850 uIU/mL 0.358-3.740 [facility] Serum or plasma urea nitroge n measurement (mass/volume)Ordered By: Payam Reyna on 05-03-2024 Urea nitrogen [Mass/Vol] 17 mg/dL 7-18 [facility] Sodium levelOrdered By: Jas Reyna on 05-03-2024 Sodium [Moles/Vol] 141 mmol/L 136-145 [facility] TSH QnOrdered By: Payam Reyna on 05-03-2024 Thyroid Stimulating Hormone (TSH) 1.850 uIU/mL 0.358-3.740 [facility] Total proteinOrdered By: Fredy Reyna on 05-03-2024 Protein [Mass/Vol] 7.1 g/dL 6.4-8.2 [facility] Urine blood detectionOrdered By: Payam Reyna on 05-03-2024 Urine Occult Blood 50 /ul High Negative [facility] Urine clarityOrdered By: Fredy Reyna on 05-03-2024 Clarity (U) Sl. Cloudy Clear [facility] Urine color determinationOrd ered By: Payam Reyna on 05-03-2024 Color (U) Yellow Yellow [facility] Urine cultureOrdered By: Fredy Reyna on 05-03-2024 Bacteria identified Cx Nom (U) Presumptive E. coli Abnormal [facility] Urine glucose detectionOrder ed By: Payam Reyna on 05-03-2024 Glucose Ql (U) Normal mg/dl Normal [facility] Urine leukocyte esterase det ection by dipstickOrdered By: Payam Reyna on 05-03-2024 Leukocyte esterase Test strip Ql (U) 500 /ul High Negative [facility] Urine pHOrdered By: Deloris Reyna on 05-03-2024 pH (U) 6.5 [pH] 5.0 - 8.0 [facility] Urine specific gravity measu rementOrdered By: Payam Reyna on 05-03-2024 Specific gravity (U) [Rel density] 1.010 1.002-1.030 [facility] Urine urobilinogen measureme ntOrdered By: Payam Reyna on 05-03-2024 Urobilinogen Ql (U) Normal mg/dl Normal [facility] Urobilinogen Ql (U)Ordered B y: Payam Reyna on 05-03-2024 Urine Urobilinogen Normal mg/dl Normal [facility] White blood cell (WBC) count Ordered By: Payam Reyna on 05-03-2024 WBC (Bld) [#/Vol] 7.0 10*3/uL 4.4-11.0 [facility] Copper, serumOrdered By: Fredy Ramirezalyssa on 04-23-2024 Serum Copper 93 ug/dL 80-158 [facility] Comment on above: Detection Limit = 5P erformed at: [facility] [id number] Director: Jeremiah Bates MD, Phone: [phone] Absolute lymphocyte countOrd ered By: Payam Reyna on 04-05-2024 Lymphocytes Auto (Unsp spec) [#/Vol] 0.90 10*3/uL 0.83-4.51 [facility] Absolute neutrophil countOrd ered By: Payam Reyna on 04-05-2024 Neutrophils (Bld) [#/Vol] 3.6 10*3/uL 2.0-7.7 [facility] Albumin to globulin ratioOrd ered By: Payam Reyna on 04-05-2024 Albumin/Globulin [Mass ratio] 0.5 {ratio} Low 0.9-2.4 [facility] Automated lymphocyte count a s percentage of total leukocytesOrdered By: Payam Reyna on 04-05-2024 Lymphocytes/100 WBC Auto (Unsp spec) 17.3 % Low 19-41 [facility] Basophil percentageOrdered B y: Payam Reyna on 04-05-2024 Basophils/100 WBC (Bld) 0.8 % 0-1 [facility] Bilirubin, totalOrdered By: Payam Reyna on 04-05-2024 Bilirubin [Mass/Vol] 0.60 mg/dL 0.20-1.00 [facility] Comment on above: For patients on eltr ombopag therapy, use of Dimension [place] TBIL is not recommended. Blasts/100 WBC (Bld)Ordered By: Payam Reyna on 04-05-2024 Blast Cells % 0.04 % High 0-0 [facility] Blood band neutrophil count as percentage of total leukocytesOrdered By: Efewongbe Jamese on 04-05-2024 Band form neutrophils/100 WBC (Bld) 0.04 % 0-5 [facility] Blood basophils/100 leukocyt esOrdered By: Efewongbe Gopalghe on 04-05-2024 Basophils/100 WBC (Bld) 0.04 % 0-1 [facility] Blood blasts/100 leukocytesO rdered By: Efewongbe Jamese on 04-05-2024 Blasts/100 WBC (Bld) 0.04 % High 0-0 [facility] Blood eosinophils/100 leukoc ytesOrdered By: Efewongbe Gopalghe on 04-05-2024 Eosinophils/100 WBC (Bld) 0.04 % 0-5 [facility] Blood leukocytes other/100 l eukocytesOrdered By: Efewongbe Gopalghe on 04-05-2024 WBC other/100 WBC (Bld) 0.04 % [facility] Blood lymphocytes/100 leukoc ytesOrdered By: Efewongbe Jamese on 04-05-2024 Lymphocytes/100 WBC (Bld) 0.04 % Low 19-41 [facility] Blood manual differential co mment interpretation (narrative result)Ordered By: Jasongbe Maribell on 04-05-2024 Manual differential comment [place] (Bld) [Interp] SCANNED [facility] Blood metamyelocytes/100 bailee kocytesOrdered By: Efewongbe Oleghe on 04-05-2024 Metamyelocytes/100 WBC (Bld) 0.04 % 0-1 [facility] Blood monocytes/100 leukocyt esOrdered By: Efewongbe Jamese on 04-05-2024 Monocytes/100 WBC (Bld) 0.04 % 0-10 [facility] Blood promyelocytes/100 leuk ocytesOrdered By: arline Reyna on 04-05-2024 Promyelocytes/100 WBC (Bld) 0.04 % High 0-0 [facility] Blood segmented neutrophils/ 100 leukocytesOrdered By: Payam Reyna on 04-05-2024 Segmented neutrophils/100 WBC (Bld) 0.04 % Low 47-70 [facility] Blood urea nitrogen (BUN)/cr eatinine ratioOrdered By: Payam Reyna on 04-05-2024 Urea nitrogen/Creatinine [Mass ratio] 23.3 mg/mg High 10-20 [facility] Carbon dioxide measurementOr dered By: Payam Reyna on 04-05-2024 CO2 [Moles/Vol] 27.0 mmol/L 21.0-32.0 [facility] Cells counted Molgen (Bld/Ti ss) [#]Ordered By: Payam Reyna on 04-05-2024 Differential Total Cells Counted 0.04 MANUAL DIFF [facility] Chloride measurementOrdered By: Payam Reyna on 04-05-2024 Chloride [Moles/Vol] 108 mmol/L High 98-107 [facility] Eosinophil percentageOrdered By: Payam Reyna on 04-05-2024 Eosinophils/100 WBC (Bld) 1.3 % 0-5 [facility] Erythrocyte distribution wid th (RBC) [Ratio]Ordered By: Payam Reyna on 04-05-2024 Erythrocyte distribution width (RBC) [Entitic vol] 67.1 fL High 35.1-43.9 [facility] Erythrocyte distribution wid th ratioOrdered By: Payam Reyna on 04-05-2024 Erythrocyte distribution width (RBC) [Ratio] 18.7 % High 11.6-14.6 [facility] Erythrocyte distribution wid th standard deviationOrdered By: Payam Reyna on 04-05-2024 Erythrocyte distribution width (RBC) [Ratio] 67.1 fl High 35.1-43.9 [facility] Estimated glomerular filtrat ion rate (GFR) AmericanOrdered By: Payam Reyna on 04-05-2024 Estimated GFR (MDRD) Amer 104 mL/min >60 [facility] Comment on above: GFR Calc Glomerular filtration rate ( GFR) estimationOrdered By: Payam Reyna on 04-05-2024 Estimated GFR (MDRD) Non-Af Amer 86 mL/min >60 [facility] Comment on above: Non- GFR Calc GFR/1.73 sq M.predicted among non-blacks MDRD (S/P/Bld) [Vol rate/Area] 86 mL/min/{1.73_m2} >60 [facility] Comment on above: Non- GFR Calc Glucose measurementOrdered B y: Payam Reyna on 04-05-2024 Glucose [Mass/Vol] 70 mg/dL Low 74-106 [facility] Hematocrit Auto (Bld) [Volum e fraction]Ordered By: Payam Reyna on 04-05-2024 Hematocrit (Bld) [Volume fraction] 26.8 % Low 37-47 [facility] Hemoglobin measurementOrdere d By: Payam Reyna on 04-05-2024 Hemoglobin (Bld) [Mass/Vol] 8.9 g/dL Low 12.0-15.0 [facility] Immature granulocytes/100 WB C Auto (Bld)Ordered By: Payam Reyna on 04-05-2024 Immature granulocytes/100 WBC (Bld) 0.600 % 0.0-0.9 [facility] Comment on above: IG% - Immature Granu locytes (promyelocytes, myelocytes and metamyelocytes) > 1% indicates that a LEFT SHIFT is Present. Laboratory - Chemistry and C hemistry - challengeOrdered By: Payam Reyna on 04-05-2024 AST [Catalytic activity/Vol] 33 U/L 15-37 [facility] Laboratory - Hematology and Cell countsOrdered By: Payam Reyna on 04-05-2024 Anisocytosis Ql (Bld) 2+ [facility] Lymphocytes Auto (Unsp spec) [#/Vol]Ordered By: Payam Reyna on 04-05-2024 Lymphocytes (Bld) [#/Vol] 0.90 10*3/uL 0.83-4.51 [facility] Lymphocytes/100 WBC Auto (Un sp spec)Ordered By: Payam Reyna on 04-05-2024 Lymphocytes/100 WBC (Bld) 17.3 % Low 19-41 [facility] MCV (mean corpuscular volume ) determinationOrdered By: Payam Reyna on 04-05-2024 MCV (RBC) [Entitic vol] 99.6 fL High 81-99 [facility] Manual differential comment [place] (Bld) [Interp]Ordered By: Payam Reyna on 04-05-2024 Differential Comment SCANNED [facility] Mean corpuscular hemoglobin (MCH) determinationOrdered By: Payam Reyna on 04-05-2024 MCH (RBC) [Entitic mass] 33.1 pg High 27.0-32.0 [facility] Mean corpuscular hemoglobin concentration (MCHC) determinationOrdered By: Payam Reyna on 04-05-2024 MCHC (RBC) [Mass/Vol] 33.2 g/dL 32-36 [facility] Mean platelet volume determi nationOrdered By: Payam Reyna on 04-05-2024 Platelet mean volume (Bld) [Entitic vol] 9.9 fL 6.2-12.0 [facility] Monocyte percentageOrdered B y: Payam Reyna on 04-05-2024 Monocytes/100 WBC (Bld) 10.4 % High 0-10 [facility] Myelocyte %Ordered By: Matias Reyna on 04-05-2024 Myelocytes/100 WBC (Bld) 0.04 % High 0-0 [facility] Neutrophil percentageOrdered By: Payam Reyna on 04-05-2024 Neutrophils/100 WBC (Bld) 69.6 % 47-70 [facility] Nucleated red blood cell per centageOrdered By: Payam Reyna on 04-05-2024 Nucleated RBC/100 WBC (Bld) [Ratio] 0 % 0-5 [facility] Plasma cell percentageOrdere d By: Payam Reyna on 04-05-2024 Plasma Cells % (manual) 0.04 % [facility] Platelet countOrdered By: Angelito Reyna on 04-05-2024 Platelets (Bld) [#/Vol] 163 10*3/uL 150-450 [facility] Potassium measurementOrdered By: Payam Reyna on 04-05-2024 Potassium [Moles/Vol] 4.0 mmol/L 3.5-5.1 [facility] Promyelocytes/100 WBC (Bld)O rdered By: Payam Reyna on 04-05-2024 Promyelocytes % 0.04 % High 0-0 [facility] RBC Auto (Bld) [#/Vol]Ordere d By: Payam Reyna on 04-05-2024 RBC (Bld) [#/Vol] 2.69 10*6/uL Low 4.2-5.4 [facility] Segmented neutrophils/100 WB C (Bld)Ordered By: Payam Reyna on 04-05-2024 Neutrophils/100 WBC (Bld) 0.04 % Low 47-70 [facility] Serum anion gap measurementO rdered By: Payam Reyna on 04-05-2024 Anion gap [Moles/Vol] 4 mmol/L Low 5-15 [facility] Serum globulin measurementOr dered By: Payam Reyna on 04-05-2024 Globulin (S) [Mass/Vol] 5.1 g/dL High 2.2-4.2 [facility] Serum or plasma alanine cheatham otransferase (ALT) measurementOrdered By: Payam Reyna on 04-05-2024 ALT [Catalytic activity/Vol] 28 U/L 13-56 [facility] Serum or plasma albumin yonatan urement (mass/volume)Ordered By: Payam Reyna on 04-05-2024 Albumin [Mass/Vol] 2.3 g/dL Low 3.2-5.0 [facility] Serum or plasma alkaline shannon sphatase measurementOrdered By: Payam Reyna on 04-05-2024 ALP [Catalytic activity/Vol] 64 U/L 45-117 [facility] Serum or plasma calcium yonatan urement (mass/volume)Ordered By: Payam Reyna on 04-05-2024 Calcium [Mass/Vol] 8.8 mg/dL 8.5-10.1 [facility] Serum or plasma creatinine m easurement (mass/volume)Ordered By: Payam Reyna on 04-05-2024 Creatinine [Mass/Vol] 0.69 mg/dL 0.55-1.02 [facility] Comment on above: The validity of the calculated GFR & GFRAA in patients over 70 years has not been determined. Clinical correlation is essential. Serum or plasma urea nitroge n measurement (mass/volume)Ordered By: Payam Reyna on 04-05-2024 Urea nitrogen [Mass/Vol] 16 mg/dL 7-18 [facility] Sodium levelOrdered By: Jas Reyna on 04-05-2024 Sodium [Moles/Vol] 139 mmol/L 136-145 [facility] Total cell countOrdered By: Payam Reyna on 04-05-2024 Cells counted Molgen (Bld/Tiss) [#] 0.04 MANUAL DIFF [facility] Total proteinOrdered By: Fredy Reyna on 04-05-2024 Protein [Mass/Vol] 7.4 g/dL 6.4-8.2 [facility] WBC other/100 WBC (Bld)Order ed By: Payam Reyna on 04-05-2024 Other Cells % 0.04 % [facility] White blood cell (WBC) count Ordered By: Payam Reyna on 04-05-2024 WBC (Bld) [#/Vol] 5.2 10*3/uL 4.4-11.0 [facility] 38-PB-Qrqglsd DOrdered By: Alyssa Reyna on 03-02-2024 Vitamin D 25-Hydroxy 35.7 ng/mL [facility] Comment on above: Vitamin D 25(OH) Sta tus Range Deficiency <20 ng/mL (50nmol/L) Insufficiency 20 - 30 ng/mL (50 - 75 nmol/L) Sufficiency 30 - 100 ng/mL (75 - 250 nmol/L) Toxicity >100 ng/mL (>250 nmol/L) Absolute neutrophil countOrd ered By: Payam Herronrejialyssa on 03-01-2024 Neutrophils (Bld) [#/Vol] 4.2 10*3/uL 2.0-7.7 [facility] Albumin to globulin ratioOrd ered By: Payam Herronrejialyssa on 03-01-2024 Albumin/Globulin [Mass ratio] 0.4 {ratio} Low 0.9-2.4 [facility] Basophil percentageOrdered B y: Angelitomerylmichaelgarfield Herronrejialyssa on 03-01-2024 Basophils/100 WBC (Bld) 0.7 % 0-1 [facility] Bilirubin, totalOrdered By: Payam Herronrejialyssa on 03-01-2024 Bilirubin [Mass/Vol] 0.50 mg/dL 0.20-1.00 [facility] Comment on above: For patients on eltr ombopag therapy, use of Dimension [place] TBIL is not recommended. Blood urea nitrogen (BUN)/cr eatinine ratioOrdered By: Payam Reyna on 03-01-2024 Urea nitrogen/Creatinine [Mass ratio] 20.9 mg/mg High 10-20 [facility] Carbon dioxide measurementOr dered By: Payam Reyna on 03-01-2024 CO2 [Moles/Vol] 22.0 mmol/L 21.0-32.0 [facility] Chloride measurementOrdered By: Payam Reyna on 03-01-2024 Chloride [Moles/Vol] 108 mmol/L High 98-107 [facility] Eosinophil percentageOrdered By: Payam Reyna on 03-01-2024 Eosinophils/100 WBC (Bld) 1.3 % 0-5 [facility] Erythrocyte distribution wid th (RBC) [Ratio]Ordered By: Payam Herronrejialyssa on 03-01-2024 Erythrocyte distribution width (RBC) [Entitic vol] 56.0 fL High 35.1-43.9 [facility] Erythrocyte distribution wid th ratioOrdered By: Payam Reyna on 03-01-2024 Erythrocyte distribution width (RBC) [Ratio] 15.8 % High 11.6-14.6 [facility] Estimated glomerular filtrat ion rate (GFR) AmericanOrdered By: Angelitoarlnie Reyna on 03-01-2024 Estimated GFR (MDRD) Amer 107 mL/min >60 [facility] Comment on above: GFR Calc Glomerular filtration rate ( GFR) estimationOrdered By: Angelitomerylmichaelgarfield Herronrejialyssa on 03-01-2024 Estimated GFR (MDRD) Non-Af Amer 88 mL/min >60 [facility] Comment on above: Non- GFR Calc Glucose measurementOrdered B y: Jamisongarfield Reyna on 03-01-2024 Glucose [Mass/Vol] 68 mg/dL Low 74-106 [facility] Hematocrit Auto (Bld) [Volum e fraction]Ordered By: Angelitomerylmichaelgarfield Reyna on 03-01-2024 Hematocrit (Bld) [Volume fraction] 28.3 % Low 37-47 [facility] Hemoglobin measurementOrdere d By: Angelitomerylmichaelgarfield Herronrejialyssa on 03-01-2024 Hemoglobin (Bld) [Mass/Vol] 8.3 g/dL Low 12.0-15.0 [facility] Immature granulocytes/100 WB C Auto (Bld)Ordered By: Angelitoarline Reyna on 03-01-2024 Immature granulocytes/100 WBC (Bld) 0.700 % 0.0-0.9 [facility] Comment on above: IG% - Immature Granu locytes (promyelocytes, myelocytes and metamyelocytes) > 1% indicates that a LEFT SHIFT is Present. Laboratory - Chemistry and C hemistry - challengeOrdered By: Payam Reyna on 03-01-2024 AST [Catalytic activity/Vol] 34 U/L 15-37 [facility] Lymphocytes Auto (Unsp spec) [#/Vol]Ordered By: merylmichaelgarfield Reyna on 03-01-2024 Lymphocytes (Bld) [#/Vol] 1.02 10*3/uL 0.83-4.51 [facility] Lymphocytes/100 WBC Auto (Un sp spec)Ordered By: Payam Reyna on 03-01-2024 Lymphocytes/100 WBC (Bld) 16.9 % Low 19-41 [facility] MCV (mean corpuscular volume ) determinationOrdered By: Payam Reyna on 03-01-2024 MCV (RBC) [Entitic vol] 99.6 fL High 81-99 [facility] Mean corpuscular hemoglobin (MCH) determinationOrdered By: Efewongbe Gopalghe on 03-01-2024 MCH (RBC) [Entitic mass] 29.2 pg 27.0-32.0 [facility] Mean corpuscular hemoglobin concentration (MCHC) determinationOrdered By: Efarline Reyna on 03-01-2024 MCHC (RBC) [Mass/Vol] 29.3 g/dL Low 32-36 [facility] Mean platelet volume determi nationOrdered By: Payam Reyna on 03-01-2024 Platelet mean volume (Bld) [Entitic vol] 10.1 fL 6.2-12.0 [facility] Monocyte percentageOrdered B y: Efarline Reyna on 03-01-2024 Monocytes/100 WBC (Bld) 11.9 % High 0-10 [facility] Neutrophil percentageOrdered By: Efmerylonggarfield Reyna on 03-01-2024 Neutrophils/100 WBC (Bld) 68.5 % 47-70 [facility] Nucleated red blood cell per centageOrdered By: Payam Reyna on 03-01-2024 Nucleated RBC/100 WBC (Bld) [Ratio] 0.7 % 0-5 [facility] Platelet countOrdered By: Ef arline Reyna on 03-01-2024 Platelets (Bld) [#/Vol] 217 10*3/uL 150-450 [facility] Potassium measurementOrdered By: Payam Reyna on 03-01-2024 Potassium [Moles/Vol] 4.0 mmol/L 3.5-5.1 [facility] RBC Auto (Bld) [#/Vol]Ordere d By: Payam Reyna on 03-01-2024 RBC (Bld) [#/Vol] 2.84 10*6/uL Low 4.2-5.4 [facility] Serum anion gap measurementO rdered By: Payam Reyna on 03-01-2024 Anion gap [Moles/Vol] 7 mmol/L 5-15 [facility] Serum globulin measurementOr dered By: Payam Reyna on 03-01-2024 Globulin (S) [Mass/Vol] 5.7 g/dL High 2.2-4.2 [facility] Serum or plasma alanine [place] otransferase (ALT) measurementOrdered By: Payam Reyna on 03-01-2024 ALT [Catalytic activity/Vol] 19 U/L 13-56 [facility] Serum or plasma albumin yonatan urement (mass/volume)Ordered By: Payam Reyna on 03-01-2024 Albumin [Mass/Vol] 2.2 g/dL Low 3.2-5.0 [facility] Serum or plasma alkaline shannon sphatase measurementOrdered By: Payam Reyna on 03-01-2024 ALP [Catalytic activity/Vol] 63 U/L 45-117 [facility] Serum or plasma calcium yonatan urement (mass/volume)Ordered By: Payam Reyna on 03-01-2024 Calcium [Mass/Vol] 8.8 mg/dL 8.5-10.1 [facility] Serum or plasma creatinine m easurement (mass/volume)Ordered By: Payam Reyna on 03-01-2024 Creatinine [Mass/Vol] 0.67 mg/dL 0.55-1.02 [facility] Comment on above: The validity of the calculated GFR & GFRAA in patients over 70 years has not been determined. Clinical correlation is essential. Serum or plasma urea nitroge n measurement (mass/volume)Ordered By: Payam Reyna on 03-01-2024 Urea nitrogen [Mass/Vol] 14 mg/dL 7-18 [facility] Sodium levelOrdered By: Jas Reyna on 03-01-2024 Sodium [Moles/Vol] 137 mmol/L 136-145 [facility] Total proteinOrdered By: Fredy Reyna on 03-01-2024 Protein [Mass/Vol] 7.9 g/dL 6.4-8.2 [facility] White blood cell (WBC) count Ordered By: Payam Reyna on 03-01-2024 WBC (Bld) [#/Vol] 6.1 10*3/uL 4.4-11.0 [facility] CBC W Auto Differential pane l (Bld)on 02-24-2024 Basophils (Bld) [#/Vol] 0.04 10*3/uL [facility] Basophils/100 WBC (Bld) 0.4 % [facility] Differential cell count method Nom (Bld) Auto [facility] Eosinophils (Bld) [#/Vol] 0.04 10*3/uL [facility] Eosinophils/100 WBC (Bld) 0.4 % [facility] Erythrocyte distribution width (RBC) [Ratio] 15.2 % High 11.5 - 15.0 % [facility] Hematocrit (Bld) [Volume fraction] 28.3 % Low 36.0 - 46.0 % [facility] Hemoglobin (Bld) [Mass/Vol] 8.5 g/dL Low 11.5 - 15.5 g/dL [facility] Immature granulocytes (Bld) [#/Vol] 0.05 10*3/uL [facility] Immature granulocytes/100 WBC (Bld) 0.5 % [facility] Interpretation and review of laboratory results Abnormal [facility] Lymphocytes (Bld) [#/Vol] 0.92 10*3/uL Low [facility] Lymphocytes/100 WBC (Bld) 9.7 % [facility] MCH (RBC) [Entitic mass] 28.1 pg 26.0 - 34.0 pg [facility] MCHC (RBC) [Mass/Vol] 30.0 g/dL Low 30.5 - 36.0 g/dL [facility] MCV (RBC) [Entitic vol] 93.4 fL 80.0 - 100.0 fL [facility] Monocytes (Bld) [#/Vol] 1.15 10*3/uL High [facility] Monocytes/100 WBC (Bld) 12.1 % [facility] Neutrophils (Bld) [#/Vol] 7.29 10*3/uL [facility] Neutrophils/100 WBC (Bld) 76.9 % [facility] Nucleated RBC (Bld) [#/Vol] [facility] Nucleated RBC/100 WBC (Bld) [Ratio] 0.0 % /100 WBC [facility] Platelet mean volume (Bld) [Entitic vol] 9.0 fL 9.0 - 12.7 fL [facility] Platelets (Bld) [#/Vol] 243 10*3/uL [facility] RBC (Bld) [#/Vol] 3.03 10*6/uL Low 3.90 - 5.2 0 m/uL [facility] WBC (Bld) [#/Vol] 9.49 10*3/uL [facility] Comprehensive metabolic 2000 panelOrdered By: Pam Tate on 02-24-2024 Albumin [Mass/Vol] 3.0 g/dL Low 3.9 - 4.9 g/dL [facility] ALP [Catalytic activity/Vol] 69 U/L 34 - 123 U/L [facility] ALT [Catalytic activity/Vol] 13 U/L 7 - 38 U/L [facility] Anion gap [Moles/Vol] 10 mmol/L 8 - 15 mmol/L [facility] AST [Catalytic activity/Vol] 21 U/L 13 - 35 U/L [facility] Bilirubin [Mass/Vol] 0.6 mg/dL 0.2 - 1 .3 mg/dL [facility] Calcium [Mass/Vol] 8.6 mg/dL 8.5 - 10. 2 mg/dL [facility] Chloride [Moles/Vol] 101 mmol/L 98 - 10 7 mmol/L [facility] CO2 [Moles/Vol] 21 mmol/L Low 22 - 30 mmol/L [facility] Creatinine [Mass/Vol] 0.67 mg/dL 0.58 - 0.96 mg/dL [facility] GFR/1.73 sq M.predicted among non-blacks MDRD (S/P/Bld) [Vol rate/Area] 85 mL/min/{1.73_m2} - PINF [facility] Comment on above: Estimated Glomerular Filtration [...] 162 mg/dL High 74 - 99 mg/dL [facility] Comment on above: The [place] [employer] (ADA) provides guidance for [...] Standards of Medical Care in Diabetes 2016, [place] [employer]. Diabetes Care. 2016.39(Suppl 1). Interpretation and review of laboratory results Abnormal [facility] Potassium [Moles/Vol] 4.4 mmol/L 3.7 - 5.1 mmol/L [facility] Protein [Mass/Vol] 8.0 g/dL 6.3 - 8.0 g/dL [facility] Sodium [Moles/Vol] 132 mmol/L Low 136 - 144 mmol/L [facility] Urea nitrogen [Mass/Vol] 16 mg/dL 7 - 21 mg/dL [facility] ESR Westergren method (Bld) [Velocity]on 02-24-2024 ESR (Bld) [Velocity] 123 mm/h High [facility] Interpretation and review of laboratory results Abnormal [facility] CBC W Auto Differential pane l (Bld)on 11-25-2023 Basophils (Bld) [#/Vol] 0.03 10*3/uL [facility] Basophils/100 WBC (Bld) 0.6 % [facility] Differential cell count method Nom (Bld) Auto [facility] Eosinophils (Bld) [#/Vol] [facility] Eosinophils/100 WBC (Bld) 0.4 % [facility] Erythrocyte distribution width (RBC) [Ratio] 15.0 % 11.5 - 15.0 % [facility] Hematocrit (Bld) [Volume fraction] 29.7 % Low 36.0 - 46.0 % [facility] Hemoglobin (Bld) [Mass/Vol] 9.8 g/dL Low 11.5 - 15.5 g/dL [facility] Immature granulocytes (Bld) [#/Vol] [facility] Immature granulocytes/100 WBC (Bld) 0.4 % [facility] Interpretation and review of laboratory results Abnormal [facility] Lymphocytes (Bld) [#/Vol] 0.54 10*3/uL Low [facility] Lymphocytes/100 WBC (Bld) 10.4 % [facility] MCH (RBC) [Entitic mass] 33.0 pg 26.0 - 34.0 pg [facility] MCHC (RBC) [Mass/Vol] 33.0 g/dL 30.5 - 36.0 g/dL [facility] MCV (RBC) [Entitic vol] 100.0 fL 80.0 - 100.0 fL [facility] Monocytes (Bld) [#/Vol] 0.46 10*3/uL [facility] Monocytes/100 WBC (Bld) 8.8 % [facility] Neutrophils (Bld) [#/Vol] 4.13 10*3/uL [facility] Neutrophils/100 WBC (Bld) 79.4 % [facility] Nucleated RBC (Bld) [#/Vol] [facility] Nucleated RBC/100 WBC (Bld) [Ratio] 0.0 % /100 WBC [facility] Platelet mean volume (Bld) [Entitic vol] 8.9 fL Low 9.0 - 12.7 fL [facility] Platelets (Bld) [#/Vol] 146 10*3/uL Low [facility] RBC (Bld) [#/Vol] 2.97 10*6/uL Low 3.90 - 5.2 0 m/uL [facility] WBC (Bld) [#/Vol] 5.20 10*3/uL [facility] Comprehensive metabolic 2000 panelOrdered By: Pam Tate on 11-25-2023 Albumin [Mass/Vol] 3.5 g/dL Low 3.9 - 4.9 g/dL [facility] ALP [Catalytic activity/Vol] 80 U/L 34 - 123 U/L [facility] ALT [Catalytic activity/Vol] 22 U/L 7 - 38 U/L [facility] Anion gap [Moles/Vol] 13 mmol/L 8 - 15 mmol/L [facility] AST [Catalytic activity/Vol] 31 U/L 13 - 35 U/L [facility] Bilirubin [Mass/Vol] 0.6 mg/dL 0.2 - 1 .3 mg/dL [facility] Calcium [Mass/Vol] 9.3 mg/dL 8.5 - 10. 2 mg/dL [facility] Chloride [Moles/Vol] 105 mmol/L 98 - 10 7 mmol/L [facility] CO2 [Moles/Vol] 21 mmol/L Low 22 - 30 mmol/L [facility] Creatinine [Mass/Vol] 0.63 mg/dL 0.58 - 0.96 mg/dL [facility] GFR/1.73 sq M.predicted among non-blacks MDRD (S/P/Bld) [Vol rate/Area] 86 mL/min/{1.73_m2} - PINF [facility] Comment on above: Estimated Glomerular Filtration [...] 148 mg/dL High 74 - 99 mg/dL [facility] Comment on above: The [place] [employer] (ADA) provides guidance for [...] Standards of Medical Care in Diabetes 2016, [place] [employer]. Diabetes Care. 2016.39(Suppl 1). Interpretation and review of laboratory results Abnormal [facility] Potassium [Moles/Vol] 4.0 mmol/L 3.7 - 5.1 mmol/L [facility] Protein [Mass/Vol] 8.0 g/dL 6.3 - 8.0 g/dL [facility] Sodium [Moles/Vol] 139 mmol/L 136 - 144 mmol/L [facility] Urea nitrogen [Mass/Vol] 15 mg/dL 7 - 21 mg/dL [facility] ESR Westergren method (Bld) [Velocity]on 11-25-2023 ESR (Bld) [Velocity] 129 mm/h High [facility] Interpretation and review of laboratory results Abnormal [facility] CBC W Auto Differential pane l (Bld)on 08-19-2023 Basophils (Bld) [#/Vol] 0.05 10*3/uL [facility] Basophils/100 WBC (Bld) 0.6 % [facility] Differential cell count method Nom (Bld) Auto [facility] Eosinophils (Bld) [#/Vol] 0.07 10*3/uL [facility] Eosinophils/100 WBC (Bld) 0.8 % [facility] Erythrocyte distribution width (RBC) [Ratio] 14.6 % 11.5 - 15.0 % [facility] Hematocrit (Bld) [Volume fraction] 34.7 % Low 36.0 - 46.0 % [facility] Hemoglobin (Bld) [Mass/Vol] 11.6 g/dL 11.5 - 15.5 g/dL [facility] Immature granulocytes (Bld) [#/Vol] 0.03 10*3/uL [facility] Immature granulocytes/100 WBC (Bld) 0.4 % [facility] Interpretation and review of laboratory results Abnormal [facility] Lymphocytes (Bld) [#/Vol] 0.67 10*3/uL Low [facility] Lymphocytes/100 WBC (Bld) 8.1 % [facility] MCH (RBC) [Entitic mass] 33.1 pg 26.0 - 34.0 pg [facility] MCHC (RBC) [Mass/Vol] 33.4 g/dL 30.5 - 36.0 g/dL [facility] MCV (RBC) [Entitic vol] 99.1 fL 80.0 - 100.0 fL [facility] Monocytes (Bld) [#/Vol] 1.02 10*3/uL High [facility] Monocytes/100 WBC (Bld) 12.3 % [facility] Neutrophils (Bld) [#/Vol] 6.42 10*3/uL [facility] Neutrophils/100 WBC (Bld) 77.8 % [facility] Nucleated RBC (Bld) [#/Vol] NINF [facility] Nucleated RBC/100 WBC (Bld) [Ratio] 0.0 % /100 WBC [facility] Platelet mean volume (Bld) [Entitic vol] 8.7 fL Low 9.0 - 12.7 fL [facility] Platelets (Bld) [#/Vol] 169 10*3/uL [facility] RBC (Bld) [#/Vol] 3.50 10*6/uL Low 3.90 - 5.2 0 m/uL [facility] WBC (Bld) [#/Vol] 8.26 10*3/uL [facility] FERRITINon 08-19-2023 Ferritin [Mass/Vol] 147.0 ng/mL 14.7 - 205.1 ng/mL [facility] Ferritin [Mass/Vol]on 2023 Interpretation and review of laboratory results Normal [facility] Iron and Iron binding capaci ty panelon 08-19-2023 Interpretation and review of laboratory results Normal [facility] Iron [Mass/Vol] 87 ug/dL 41 - 186 ug/dL [facility] Iron binding capacity [Mass/Vol] 271 ug/dL 232 - 386 ug/dL [facility] Iron/TIBC [Molar ratio] 32.1 % 15.0 - 57.0 % [facility] C-REACTIVE PROTEINon 024 CRP [Mass/Vol] <0.9 mg/dL [facility] CBC W Auto Differential pane l (Bld)on 07-04-2023 Basophils (Bld) [#/Vol] <0.11 k/uL [facility] Basophils/100 WBC (Bld) 0.2 % [facility] Differential cell count method Nom (Bld) Auto [facility] Eosinophils (Bld) [#/Vol] 0.03 10*3/uL <0.46 k/uL [facility] Eosinophils/100 WBC (Bld) 0.3 % [facility] Erythrocyte distribution width (RBC) [Ratio] 14.8 % 11.5 - 15.0 % [facility] Hematocrit (Bld) [Volume fraction] 39.4 % 36.0 - 46.0 % [facility] Hemoglobin (Bld) [Mass/Vol] 13.2 g/dL 11.5 - 15.5 g/dL [facility] Immature granulocytes (Bld) [#/Vol] 0.06 10*3/uL <0.10 k/uL [facility] Immature granulocytes/100 WBC (Bld) 0.6 % [facility] Lymphocytes (Bld) [#/Vol] 0.84 10*3/uL Low 1.00 - 4.00 k/uL [facility] Lymphocytes/100 WBC (Bld) 8.1 % [facility] MCH (RBC) [Entitic mass] 33.0 pg 26.0 - 34.0 pg [facility] MCHC (RBC) [Mass/Vol] 33.5 g/dL 30.5 - 36.0 g/dL [facility] MCV (RBC) [Entitic vol] 98.5 fL 80.0 - 100.0 fL [facility] Monocytes (Bld) [#/Vol] 1.41 10*3/uL High <0.87 k/uL [facility] Monocytes/100 WBC (Bld) 13.6 % [facility] Neutrophils (Bld) [#/Vol] 8.02 10*3/uL High 1.45 - 7.50 k/uL [facility] Neutrophils/100 WBC (Bld) 77.2 % [facility] Nucleated RBC (Bld) [#/Vol] <0.01 k/uL [facility] Nucleated RBC/100 WBC (Bld) [Ratio] 0.0 /100 WBC [facility] Platelet mean volume (Bld) [Entitic vol] 9.4 fL 9.0 - 12.7 fL [facility] Platelets (Bld) [#/Vol] 151 10*3/uL 150 - 400 k/uL [facility] RBC (Bld) [#/Vol] 4.00 10*6/uL 3.90 - 5.2 0 m/uL [facility] WBC (Bld) [#/Vol] 10.38 10*3/uL 3.70 - 11.00 k/uL [facility] Comprehensive metabolic 2000 panelon 07-04-2023 Albumin [Mass/Vol] 3.5 g/dL Low 3.9 - 4.9 g/dL [facility] ALP [Catalytic activity/Vol] 80 U/L 34 - 123 U/L [facility] ALT [Catalytic activity/Vol] 51 U/L High 7 - 38 U/L [facility] Anion gap [Moles/Vol] 9 mmol/L 9 - 18 mmol/L [facility] AST [Catalytic activity/Vol] 43 U/L High 13 - 35 U/L [facility] Bilirubin [Mass/Vol] 0.8 mg/dL 0.2 - 1 .3 mg/dL [facility] Calcium [Mass/Vol] 9.7 mg/dL 8.5 - 10. 2 mg/dL [facility] Chloride [Moles/Vol] 105 mmol/L 97 - 10 5 mmol/L [facility] CO2 [Moles/Vol] 24 mmol/L 22 - 30 mmol/L [facility] Creatinine [Mass/Vol] 0.73 mg/dL 0.58 - 0.96 mg/dL [facility] Estimated Glomerular Filtration Rate 80 mL/min/1.73m >=60 mL/min/1.73 m [facility] Glucose [Mass/Vol] 85 mg/dL 74 - 99 mg/dL [facility] Potassium [Moles/Vol] 4.5 mmol/L 3.7 - 5.1 mmol/L [facility] Protein [Mass/Vol] 7.4 g/dL 6.3 - 8.0 g/dL [facility] Sodium [Moles/Vol] 138 mmol/L 136 - 144 mmol/L [facility] Urea nitrogen [Mass/Vol] 19 mg/dL 7 - 21 mg/dL [facility] ESR Westergren method (Bld) [Velocity]on 07-04-2023 ESR (Bld) [Velocity] 49 mm/h High 0 - 20 mm/hr [facility] RHEUMATOID FACTORon 07-04-19 24 Rheumatoid factor Qn 439 [IU]/mL High <16 IU/mL [facility] Absolute lymphocyte countOrd ered By: Payam Reyna on 06-30-2023 Lymphocytes Auto (Unsp spec) [#/Vol] 1.25 10*3/uL 0.83-4.51 [facility] Automated lymphocyte count a s percentage of total leukocytesOrdered By: Payam Reyna on 06-30-2023 Lymphocytes/100 WBC Auto (Unsp spec) 21.3 % 19-41 [facility] Basophil percentageOrdered B y: Payam Reyna on 06-30-2023 Basophils/100 WBC (Bld) 0.7 % 0-1 [facility] Bilirubin [Mass/Vol] 0.80 mg/dL 0.20-1.00 [facility] Comment on above: For patients on eltr ombopag therapy, use of Dimension [place] TBIL is not recommended. Chloride [Moles/Vol] 110 mmol/L 98-107 [facility] Eosinophils/100 WBC (Bld) 1.5 % 0-5 [facility] Glucose [Mass/Vol] 74 mg/dL 74-106 [facility] Hemoglobin (Bld) [Mass/Vol] 11.0 g/dL 12.0-15.0 [facility] Monocytes/100 WBC (Bld) 11.9 % 0-10 [facility] Neutrophils (Bld) [#/Vol] 3.8 10*3/uL 2.0-7.7 [facility] Neutrophils/100 WBC (Bld) 64.1 % 47-70 [facility] Potassium [Moles/Vol] 4.0 mmol/L 3.5-5.1 [facility] Protein [Mass/Vol] 6.4 g/dL 6.4-8.2 [facility] Sodium [Moles/Vol] 142 mmol/L 136-145 [facility] WBC (Bld) [#/Vol] 5.9 10*3/uL 4.4-11.0 [facility] Determination of erythrocyte mean corpuscular volume (MCV)Ordered By: Payam Reyna on 06-30-2023 MCV (RBC) [Entitic vol] 102.1 fL 81-99 [facility] Erythrocyte distribution wid th ratioOrdered By: [facility] Gopalalyssa on 06-30-2023 Erythrocyte distribution width (RBC) [Ratio] 15.0 % 11.6-14.6 [facility] Erythrocyte distribution wid th standard deviationOrdered By: [facility] Gopalalyssa on 06-30-2023 Erythrocyte distribution width (RBC) [Entitic vol] 55.3 fL 35.1-43.9 [facility] Hematocrit Auto (Bld) [Volum e fraction]Ordered By: [facility] Gopalalyssa on 06-30-2023 Hematocrit (Bld) [Volume fraction] 34.2 % 37-47 [facility] Immature granulocytes/100 WB C Auto (Bld)Ordered By: Payam Reyna on 06-30-2023 Immature granulocytes/100 WBC (Bld) 0.500 % 0.0-0.9 [facility] Comment on above: IG% - Immature Granu locytes (promyelocytes, myelocytes and metamyelocytes) > 1% indicates that a LEFT SHIFT is Present. Laboratory - Chemistry and C hemistry - challengeOrdered By: Payam Reyna on 06-30-2023 Albumin/Globulin [Mass ratio] 0.6 {ratio} 0.9-2.4 [facility] ALP [Catalytic activity/Vol] 59 U/L 45-117 [facility] ALT [Catalytic activity/Vol] 31 U/L 13-56 [facility] CO2 [Moles/Vol] 27.0 mmol/L 21.0-32.0 [facility] Globulin (S) [Mass/Vol] 4.0 g/dL 2.2-4.2 [facility] Urea nitrogen/Creatinine [Mass ratio] 23.6 mg/mg 10-20 [facility] Laboratory - Hematology and Cell countsOrdered By: Payam Reyna on 06-30-2023 MCH (RBC) [Entitic mass] 32.8 pg 27.0-32.0 [facility] MCHC (RBC) [Mass/Vol] 32.2 g/dL 32-36 [facility] Nucleated RBC/100 WBC (Bld) [Ratio] 0 % 0-5 [facility] Platelet mean volume (Bld) [Entitic vol] 9.7 fL 6.2-12.0 [facility] Platelets (Bld) [#/Vol] 131 10*3/uL 150-450 [facility] No Panel InformationOrdered By: Payam Reyna on 06-30-2023 Estimated GFR (MDRD) Amer 123 mL/min >60 [facility] Comment on above: GFR Calc Estimated GFR (MDRD) Non-Af Amer 102 mL/min >60 [facility] Comment on above: Non- GFR Calc RBC Auto (Bld) [#/Vol]Ordere d By: Payam Reyna on 06-30-2023 RBC (Bld) [#/Vol] 3.35 10*6/uL 4.2-5.4 [facility] Serum or plasma calcium yonatan urement (mass/volume)Ordered By: Payam Reyna on 06-30-2023 Calcium [Mass/Vol] 8.5 mg/dL 8.5-10.1 [facility] Serum or plasma creatinine m easurement (mass/volume)Ordered By: Payam Reyna on 06-30-2023 Creatinine [Mass/Vol] 0.59 mg/dL 0.55-1.02 [facility] Comment on above: The validity of the calculated GFR & GFRAA in patients over 70 years has not been determined. Clinical correlation is essential. Serum or plasma urea nitroge n measurement (mass/volume)Ordered By: Payam Reyna on 06-30-2023 Urea nitrogen [Mass/Vol] 14 mg/dL 7-18 [facility] Thin prep Papanicolaou smear with manual screeningOrdered By: Payam Reyna on 06-30-2023 Thin prep Papanicolaou smear with manual screening 2.4 g/dL 3.2-5.0 [facility] Thin prep Papanicolaou smear with manual screening 27 U/L 15-37 [facility] Thin prep Papanicolaou smear with manual screening 5 5-15 [facility] Absolute lymphocyte countOrd ered By: Payam Reyna on 06-02-2023 Lymphocytes Auto (Unsp spec) [#/Vol] 1.12 10*3/uL 0.83-4.51 [facility] Automated lymphocyte count a s percentage of total leukocytesOrdered By: Payam Reyna on 06-02-2023 Lymphocytes/100 WBC Auto (Unsp spec) 18.1 % 19-41 [facility] Basophil percentageOrdered B y: Payam Reyna on 06-02-2023 Basophils/100 WBC (Bld) 0.5 % 0-1 [facility] Bilirubin [Mass/Vol] 0.60 mg/dL 0.20-1.00 [facility] Comment on above: For patients on eltr ombopag therapy, use of Dimension [place] TBIL is not recommended. Chloride [Moles/Vol] 110 mmol/L 98-107 [facility] Eosinophils/100 WBC (Bld) 1.5 % 0-5 [facility] Glucose [Mass/Vol] 76 mg/dL 74-106 [facility] Hemoglobin (Bld) [Mass/Vol] 11.3 g/dL 12.0-15.0 [facility] Monocytes/100 WBC (Bld) 9.5 % 0-10 [facility] Neutrophils (Bld) [#/Vol] 4.3 10*3/uL 2.0-7.7 [facility] Neutrophils/100 WBC (Bld) 69.9 % 47-70 [facility] Potassium [Moles/Vol] 4.1 mmol/L 3.5-5.1 [facility] Protein [Mass/Vol] 6.8 g/dL 6.4-8.2 [facility] Sodium [Moles/Vol] 140 mmol/L 136-145 [facility] WBC (Bld) [#/Vol] 6.2 10*3/uL 4.4-11.0 [facility] Determination of erythrocyte mean corpuscular volume (MCV)Ordered By: Payam Reyna on 06-02-2023 MCV (RBC) [Entitic vol] 101.2 fL 81-99 [facility] Erythrocyte distribution wid th ratioOrdered By: [facility] Maribell on 06-02-2023 Erythrocyte distribution width (RBC) [Ratio] 14.1 % 11.6-14.6 [facility] Erythrocyte distribution wid th standard deviationOrdered By: [facility] Gopalalyssa on 06-02-2023 Erythrocyte distribution width (RBC) [Entitic vol] 52.1 fL 35.1-43.9 [facility] Hematocrit Auto (Bld) [Volum e fraction]Ordered By: Jasbuena vist[place]field Reyna on 06-02-2023 Hematocrit (Bld) [Volume fraction] 34.1 % 37-47 [facility] Immature granulocytes/100 WB C Auto (Bld)Ordered By: merylbuena vistagarfield Reyna on 06-02-2023 Immature granulocytes/100 WBC (Bld) 0.500 % 0.0-0.9 [facility] Comment on above: IG% - Immature Granu locytes (promyelocytes, myelocytes and metamyelocytes) > 1% indicates that a LEFT SHIFT is Present. Laboratory - Chemistry and C hemistry - challengeOrdered By: Payam Reyna on 06-02-2023 Albumin/Globulin [Mass ratio] 0.5 {ratio} 0.9-2.4 [facility] ALP [Catalytic activity/Vol] 67 U/L 45-117 [facility] ALT [Catalytic activity/Vol] 25 U/L 13-56 [facility] CO2 [Moles/Vol] 26.0 mmol/L 21.0-32.0 [facility] Globulin (S) [Mass/Vol] 4.4 g/dL 2.2-4.2 [facility] Urea nitrogen/Creatinine [Mass ratio] 21.1 mg/mg 10-20 [facility] Laboratory - Hematology and Cell countsOrdered By: Payam Reyna on 06-02-2023 MCH (RBC) [Entitic mass] 33.5 pg 27.0-32.0 [facility] MCHC (RBC) [Mass/Vol] 33.1 g/dL 32-36 [facility] Nucleated RBC/100 WBC (Bld) [Ratio] 0 % 0-5 [facility] Platelet mean volume (Bld) [Entitic vol] 9.4 fL 6.2-12.0 [facility] Platelets (Bld) [#/Vol] 144 10*3/uL 150-450 [facility] No Panel InformationOrdered By: Payam Reyna on 06-02-2023 Estimated GFR (MDRD) Amer 118 mL/min >60 [facility] Comment on above: GFR Calc Estimated GFR (MDRD) Non-Af Amer 97 mL/min >60 [facility] Comment on above: Non- GFR Calc RBC Auto (Bld) [#/Vol]Ordere d By: Payam Reyna on 06-02-2023 RBC (Bld) [#/Vol] 3.37 10*6/uL 4.2-5.4 [facility] Serum or plasma calcium yonatan urement (mass/volume)Ordered By: Payam Reyna on 06-02-2023 Calcium [Mass/Vol] 9.1 mg/dL 8.5-10.1 [facility] Serum or plasma creatinine m easurement (mass/volume)Ordered By: Payam Gopalrejialyssa on 06-02-2023 Creatinine [Mass/Vol] 0.62 mg/dL 0.55-1.02 [facility] Comment on above: The validity of the calculated GFR & GFRAA in patients over 70 years has not been determined. Clinical correlation is essential. Serum or plasma urea nitroge n measurement (mass/volume)Ordered By: Payam Reyna on 06-02-2023 Urea nitrogen [Mass/Vol] 13 mg/dL 7-18 [facility] Thin prep Papanicolaou smear with manual screeningOrdered By: merylmichaelgarfield Reyna on 06-02-2023 Thin prep Papanicolaou smear with manual screening 2.4 g/dL 3.2-5.0 [facility] Thin prep Papanicolaou smear with manual screening 26 U/L 15-37 [facility] Thin prep Papanicolaou smear with manual screening 4 5-15 [facility] Absolute lymphocyte countOrd ered By: Jasmichaelgarfield Reyna on 05-05-2023 Lymphocytes Auto (Unsp spec) [#/Vol] 1.25 10*3/uL 0.83-4.51 [facility] Automated lymphocyte count a s percentage of total leukocytesOrdered By: Jasmichaelgarfield Reyna on 05-05-2023 Lymphocytes/100 WBC Auto (Unsp spec) 17.8 % 19-41 [facility] Basophil percentageOrdered B y: Jamisongarfield Herronrejialyssa on 05-05-2023 Basophils/100 WBC (Bld) 0.6 % 0-1 [facility] Bilirubin [Mass/Vol] 0.80 mg/dL 0.20-1.00 [facility] Comment on above: For patients on eltr ombopag therapy, use of Dimension [place] TBIL is not recommended. Chloride [Moles/Vol] 112 mmol/L 98-107 [facility] Eosinophils/100 WBC (Bld) 1.6 % 0-5 [facility] Glucose [Mass/Vol] 76 mg/dL 74-106 [facility] Hemoglobin (Bld) [Mass/Vol] 11.6 g/dL 12.0-15.0 [facility] Monocytes/100 WBC (Bld) 11.1 % 0-10 [facility] Neutrophils (Bld) [#/Vol] 4.8 10*3/uL 2.0-7.7 [facility] Neutrophils/100 WBC (Bld) 68.5 % 47-70 [facility] Potassium [Moles/Vol] 4.0 mmol/L 3.5-5.1 [facility] Protein [Mass/Vol] 6.7 g/dL 6.4-8.2 [facility] Sodium [Moles/Vol] 142 mmol/L 136-145 [facility] WBC (Bld) [#/Vol] 7.0 10*3/uL 4.4-11.0 [facility] Determination of erythrocyte mean corpuscular volume (MCV)Ordered By: Payam Reyna on 05-05-2023 MCV (RBC) [Entitic vol] 102.3 fL 81-99 [facility] Erythrocyte distribution wid th ratioOrdered By: [facility] on 05-05-2023 Erythrocyte distribution width (RBC) [Ratio] 14.0 % 11.6-14.6 [facility] Erythrocyte distribution wid th standard deviationOrdered By: [facility] Gopalalyssa on 05-05-2023 Erythrocyte distribution width (RBC) [Entitic vol] 51.9 fL 35.1-43.9 [facility] Hematocrit Auto (Bld) [Volum e fraction]Ordered By: [facility] Reyn[facility] on 05-05-2023 Hematocrit (Bld) [Volume fraction] 35.7 % 37-47 [facility] Immature granulocytes/100 WB C Auto (Bld)Ordered By: [facility] Reyn[facility] on 05-05-2023 Immature granulocytes/100 WBC (Bld) 0.400 % 0.0-0.9 [facility] Comment on above: IG% - Immature Granu locytes (promyelocytes, myelocytes and metamyelocytes) > 1% indicates that a LEFT SHIFT is Present. Laboratory - Chemistry and C hemistry - challengeOrdered By: Payam Reyna on 05-05-2023 Albumin/Globulin [Mass ratio] 0.6 {ratio} 0.9-2.4 [facility] ALP [Catalytic activity/Vol] 56 U/L 45-117 [facility] ALT [Catalytic activity/Vol] 24 U/L 13-56 [facility] CO2 [Moles/Vol] 26.0 mmol/L 21.0-32.0 [facility] Globulin (S) [Mass/Vol] 4.3 g/dL 2.2-4.2 [facility] Urea nitrogen/Creatinine [Mass ratio] 16.0 mg/mg 10-20 [facility] Laboratory - Hematology and Cell countsOrdered By: Payam Reyna on 05-05-2023 MCH (RBC) [Entitic mass] 33.2 pg 27.0-32.0 [facility] MCHC (RBC) [Mass/Vol] 32.5 g/dL 32-36 [facility] Nucleated RBC/100 WBC (Bld) [Ratio] 0 % 0-5 [facility] Platelet mean volume (Bld) [Entitic vol] 9.4 fL 6.2-12.0 [facility] Platelets (Bld) [#/Vol] 144 10*3/uL 150-450 [facility] No Panel InformationOrdered By: Payam Reyna on 05-05-2023 Estimated GFR (MDRD) Amer 104 mL/min >60 [facility] Comment on above: GFR Calc Estimated GFR (MDRD) Non-Af Amer 86 mL/min >60 [facility] Comment on above: Non- GFR Calc RBC Auto (Bld) [#/Vol]Ordere d By: Payam Reyna on 05-05-2023 RBC (Bld) [#/Vol] 3.49 10*6/uL 4.2-5.4 [facility] Serum or plasma calcium yonatan urement (mass/volume)Ordered By: Payam Reyna on 05-05-2023 Calcium [Mass/Vol] 9.0 mg/dL 8.5-10.1 [facility] Serum or plasma creatinine m easurement (mass/volume)Ordered By: Payam Reyna on 05-05-2023 Creatinine [Mass/Vol] 0.69 mg/dL 0.55-1.02 [facility] Comment on above: The validity of the calculated GFR & GFRAA in patients over 70 years has not been determined. Clinical correlation is essential. Serum or plasma thyroid stim ulating hormone (TSH) measurement (units/volume)Ordered By: Payam Reyna on 05-05-2023 TSH Qn 1.84 uIU/mL 0.358-3.74 [facility] Serum or plasma urea nitroge n measurement (mass/volume)Ordered By: Payam Reyna on 05-05-2023 Urea nitrogen [Mass/Vol] 11 mg/dL 7-18 [facility] Thin prep Papanicolaou smear with manual screeningOrdered By: merylbuena vistagarfield Reyna on 05-05-2023 Thin prep Papanicolaou smear with manual screening 2.4 g/dL 3.2-5.0 [facility] Thin prep Papanicolaou smear with manual screening 16 U/L 15-37 [facility] Thin prep Papanicolaou smear with manual screening 4 5-15 [facility] Absolute lymphocyte countOrd ered By: Payam Reyna on 03-31-2023 Lymphocytes Auto (Unsp spec) [#/Vol] 1.66 10*3/uL 0.83-4.51 [facility] Basophil percentageOrdered B y: Payam Reyna on 03-31-2023 Basophils/100 WBC (Bld) 0.7 % 0-1 [facility] Bilirubin [Mass/Vol] 0.60 mg/dL 0.20-1.00 [facility] Comment on above: For patients on eltr ombopag therapy, use of Dimension [place] TBIL is not recommended. Chloride [Moles/Vol] 109 mmol/L 98-107 [facility] Eosinophils/100 WBC (Bld) 1.1 % 0-5 [facility] Glucose [Mass/Vol] 69 mg/dL 74-106 [facility] Neutrophils (Bld) [#/Vol] 4.8 10*3/uL 2.0-7.7 [facility] Neutrophils/100 WBC (Bld) 65.4 % 47-70 [facility] Potassium [Moles/Vol] 4.1 mmol/L 3.5-5.1 [facility] Protein [Mass/Vol] 7.0 g/dL 6.4-8.2 [facility] Sodium [Moles/Vol] 142 mmol/L 136-145 [facility] WBC (Bld) [#/Vol] 7.4 10*3/uL 4.4-11.0 [facility] Blood erythrocytes count (nu mber/volume)Ordered By: Payam Reyna on 03-31-2023 RBC (Bld) [#/Vol] 3.54 10*6/uL 4.2-5.4 [facility] Blood hemoglobin measurement (mass/volume)Ordered By: Payam Reyna on 03-31-2023 Hemoglobin (Bld) [Mass/Vol] 12.3 g/dL 12.0-15.0 [facility] Blood lymphocytes/100 leukoc ytesOrdered By: Payam Reyna on 03-31-2023 Lymphocytes/100 WBC (Bld) 22.5 % 19-41 [facility] Blood monocytes/100 leukocyt esOrdered By: Payam Reyna on 03-31-2023 Monocytes/100 WBC (Bld) 9.8 % 0-10 [facility] Blood platelet mean volumeOr dered By: Payam Reyna on 03-31-2023 Platelet mean volume (Bld) [Entitic vol] 9.9 fL 6.2-12.0 [facility] Determination of erythrocyte mean corpuscular volume (MCV)Ordered By: Payam Reyna on 03-31-2023 MCV (RBC) [Entitic vol] 103.7 fL 81-99 [facility] Hematocrit Auto (Bld) [Volum e fraction]Ordered By: Payam Reyna on 03-31-2023 Hematocrit (Bld) [Volume fraction] 36.7 % 37-47 [facility] Laboratory - Chemistry and C hemistry - challengeOrdered By: Payam Reyna on 03-31-2023 ALP [Catalytic activity/Vol] 60 U/L 45-117 [facility] ALT [Catalytic activity/Vol] 26 U/L 13-56 [facility] CO2 [Moles/Vol] 27.0 mmol/L 21.0-32.0 [facility] Globulin (S) [Mass/Vol] 4.2 g/dL 2.2-4.2 [facility] Urea nitrogen/Creatinine [Mass ratio] 19.8 mg/mg 10-20 [facility] Laboratory - Hematology and Cell countsOrdered By: Payam Reyna on 03-31-2023 Erythrocyte distribution width (RBC) [Entitic vol] 51.9 fL 35.1-43.9 [facility] Erythrocyte distribution width (RBC) [Ratio] 13.6 % 11.6-14.6 [facility] Immature granulocytes/100 WBC (Bld) 0.500 % 0.0-0.9 [facility] Comment on above: IG% - Immature Granu locytes (promyelocytes, myelocytes and metamyelocytes) > 1% indicates that a LEFT SHIFT is Present. MCH (RBC) [Entitic mass] 34.7 pg 27.0-32.0 [facility] Nucleated RBC/100 WBC (Bld) [Ratio] 0 % 0-5 [facility] MCHC Auto (RBC) [Mass/Vol]Or dered By: Payam Reyna on 03-31-2023 MCHC (RBC) [Mass/Vol] 33.5 g/dL 32-36 [facility] No Panel InformationOrdered By: Payam Reyna on 03-31-2023 Estimated GFR (MDRD) Amer 120 mL/min >60 [facility] Comment on above: GFR Calc Estimated GFR (MDRD) Non-Af Amer 99 mL/min >60 [facility] Comment on above: Non- GFR Calc Platelets bldOrdered By: Fredy Reyna on 03-31-2023 Platelets (Bld) [#/Vol] 139 10*3/uL 150-450 [facility] Serum or plasma albumin yonatan urement (mass/volume)Ordered By: Payam Reyna on 03-31-2023 Albumin [Mass/Vol] 2.8 g/dL 3.2-5.0 [facility] Serum or plasma albumin/glob ulin mass ratioOrdered By: Payam Reyna on 03-31-2023 Albumin/Globulin [Mass ratio] 0.7 {ratio} 0.9-2.4 [facility] Serum or plasma calcium yonatan urement (mass/volume)Ordered By: Payam Reyna on 03-31-2023 Calcium [Mass/Vol] 9.1 mg/dL 8.5-10.1 [facility] Serum or plasma creatinine m easurement (mass/volume)Ordered By: Payam Reyna on 03-31-2023 Creatinine [Mass/Vol] 0.61 mg/dL 0.55-1.02 [facility] Comment on above: The validity of the calculated GFR & GFRAA in patients over 70 years has not been determined. Clinical correlation is essential. Serum or plasma urea nitroge n measurement (mass/volume)Ordered By: Payam Reyna on 03-31-2023 Urea nitrogen [Mass/Vol] 12 mg/dL 10-01 [facility] Thin prep Papanicolaou smear with manual screeningOrdered By: arline Reyna on 03-31-2023 Thin prep Papanicolaou smear with manual screening 22 U/L 15 [facility] Thin prep Papanicolaou smear with manual screening 6 - [facility] Absolute lymphocyte countOrd ered By: Payam Reyna on 03-03-2023 Lymphocytes Auto (Unsp spec) [#/Vol] 1.95 10*3/uL 0.83-4.51 [facility] Basophil percentageOrdered B y: Payam Reyna on 03-03-2023 Basophils/100 WBC (Bld) 0.5 % 0-1 [facility] Bilirubin [Mass/Vol] 0.80 mg/dL 0.20-1.00 [facility] Comment on above: For patients on eltr ombopag therapy, use of Dimension [place] TBIL is not recommended. Chloride [Moles/Vol] 109 mmol/L 98-107 [facility] Eosinophils/100 WBC (Bld) 1.6 % 0-5 [facility] Glucose [Mass/Vol] 67 mg/dL 74-106 [facility] Neutrophils (Bld) [#/Vol] 4.4 10*3/uL 2.0-7.7 [facility] Neutrophils/100 WBC (Bld) 60.1 % 47-70 [facility] Potassium [Moles/Vol] 4.2 mmol/L 3.5-5.1 [facility] Protein [Mass/Vol] 7.3 g/dL 6.4-8.2 [facility] Sodium [Moles/Vol] 142 mmol/L 136-145 [facility] WBC (Bld) [#/Vol] 7.4 10*3/uL 4.4-11.0 [facility] Blood erythrocytes count (nu mber/volume)Ordered By: Payam Reyna on 03-03-2023 RBC (Bld) [#/Vol] 3.61 10*6/uL 4.2-5.4 [facility] Blood hemoglobin measurement (mass/volume)Ordered By: Payam Reyna on 03-03-2023 Hemoglobin (Bld) [Mass/Vol] 12.6 g/dL 12.0-15.0 [facility] Blood lymphocytes/100 leukoc ytesOrdered By: Payam Reyna on 03-03-2023 Lymphocytes/100 WBC (Bld) 26.4 % 19-41 [facility] Blood monocytes/100 leukocyt esOrdered By: arline Reyna on 03-03-2023 Monocytes/100 WBC (Bld) 10.7 % 0-10 [facility] Blood platelet mean volumeOr dered By: Payam Reyna on 03-03-2023 Platelet mean volume (Bld) [Entitic vol] 9.8 fL 6.2-12.0 [facility] Determination of erythrocyte mean corpuscular volume (MCV)Ordered By: Payam Reyna on 03-03-2023 MCV (RBC) [Entitic vol] 104.7 fL 81-99 [facility] Hematocrit Auto (Bld) [Volum e fraction]Ordered By: Payam Reyna on 03-03-2023 Hematocrit (Bld) [Volume fraction] 37.8 % 37-47 [facility] Laboratory - Chemistry and C hemistry - challengeOrdered By: Payam Reyna on 03-03-2023 ALP [Catalytic activity/Vol] 71 U/L 45-117 [facility] ALT [Catalytic activity/Vol] 38 U/L 13-56 [facility] CO2 [Moles/Vol] 28.0 mmol/L 21.0-32.0 [facility] Globulin (S) [Mass/Vol] 4.3 g/dL 2.2-4.2 [facility] Urea nitrogen/Creatinine [Mass ratio] 20.3 mg/mg 10-20 [facility] Laboratory - Hematology and Cell countsOrdered By: Payam Reyna on 03-03-2023 Erythrocyte distribution width (RBC) [Entitic vol] 53.8 fL 35.1-43.9 [facility] Erythrocyte distribution width (RBC) [Ratio] 14.0 % 11.6-14.6 [facility] Immature granulocytes/100 WBC (Bld) 0.700 % 0.0-0.9 [facility] Comment on above: IG% - Immature Granu locytes (promyelocytes, myelocytes and metamyelocytes) > 1% indicates that a LEFT SHIFT is Present. MCH (RBC) [Entitic mass] 34.9 pg 27.0-32.0 [facility] Nucleated RBC/100 WBC (Bld) [Ratio] 0 % 0-5 [facility] MCHC Auto (RBC) [Mass/Vol]Or dered By: Payam Reyna on 03-03-2023 MCHC (RBC) [Mass/Vol] 33.3 g/dL 32-36 [facility] No Panel InformationOrdered By: Payam Reyna on 03-03-2023 Estimated GFR (MDRD) Amer 96 mL/min >60 [facility] Comment on above: GFR Calc Estimated GFR (MDRD) Non-Af Amer 79 mL/min >60 [facility] Comment on above: Non- GFR Calc Platelets bldOrdered By: Fredy Reyna on 03-03-2023 Platelets (Bld) [#/Vol] 141 10*3/uL 150-450 [facility] Serum or plasma albumin yonatan urement (mass/volume)Ordered By: Payam Reyna on 03-03-2023 Albumin [Mass/Vol] 3.0 g/dL 3.2-5.0 [facility] Serum or plasma albumin/glob ulin mass ratioOrdered By: Payam Reyna on 03-03-2023 Albumin/Globulin [Mass ratio] 0.7 {ratio} 0.9-2.4 [facility] Serum or plasma calcium yonatan urement (mass/volume)Ordered By: Payam Reyna on 03-03-2023 Calcium [Mass/Vol] 9.0 mg/dL 8.5-10.1 [facility] Serum or plasma creatinine m easurement (mass/volume)Ordered By: Payam Reyna on 03-03-2023 Creatinine [Mass/Vol] 0.74 mg/dL 0.55-1.02 [facility] Comment on above: The validity of the calculated GFR & GFRAA in patients over 70 years has not been determined. Clinical correlation is essential. Serum or plasma urea nitroge n measurement (mass/volume)Ordered By: Payam Reyna on 03-03-2023 Urea nitrogen [Mass/Vol] 15 mg/dL 7-18 [facility] Thin prep Papanicolaou smear with manual screeningOrdered By: Payam Reyna on 03-03-2023 Thin prep Papanicolaou smear with manual screening 38 U/L 15-37 [facility] Thin prep Papanicolaou smear with manual screening 5 5-15 [facility] Absolute lymphocyte countOrd ered By: Payam Reyna on 02-03-2023 Lymphocytes Auto (Unsp spec) [#/Vol] 1.74 10*3/uL 0.83-4.51 [facility] Basophil percentageOrdered B y: Payam Reyna on 02-03-2023 Basophils/100 WBC (Bld) 0.6 % 0-1 [facility] Bilirubin [Mass/Vol] 0.70 mg/dL 0.20-1.00 [facility] Comment on above: For patients on eltr ombopag therapy, use of Dimension [place] TBIL is not recommended. Chloride [Moles/Vol] 108 mmol/L 98-107 [facility] Eosinophils/100 WBC (Bld) 1.4 % 0-5 [facility] Glucose [Mass/Vol] 79 mg/dL 74-106 [facility] Neutrophils (Bld) [#/Vol] 4.5 10*3/uL 2.0-7.7 [facility] Neutrophils/100 WBC (Bld) 62.8 % 47-70 [facility] Potassium [Moles/Vol] 3.8 mmol/L 3.5-5.1 [facility] Protein [Mass/Vol] 7.3 g/dL 6.4-8.2 [facility] Sodium [Moles/Vol] 141 mmol/L 136-145 [facility] WBC (Bld) [#/Vol] 7.1 10*3/uL 4.4-11.0 [facility] Blood erythrocytes count (nu mber/volume)Ordered By: Payam Reyna on 02-03-2023 RBC (Bld) [#/Vol] 3.58 10*6/uL 4.2-5.4 [facility] Blood hemoglobin measurement (mass/volume)Ordered By: Payam Reyna on 02-03-2023 Hemoglobin (Bld) [Mass/Vol] 12.3 g/dL 12.0-15.0 [facility] Blood lymphocytes/100 leukoc ytesOrdered By: Payam Reyna on 02-03-2023 Lymphocytes/100 WBC (Bld) 24.5 % 19-41 [facility] Blood monocytes/100 leukocyt esOrdered By: Payam Reyna on 02-03-2023 Monocytes/100 WBC (Bld) 10.4 % 0-10 [facility] Blood platelet mean volumeOr dered By: Payam Reyna on 02-03-2023 Platelet mean volume (Bld) [Entitic vol] 9.4 fL 6.2-12.0 [facility] Determination of erythrocyte mean corpuscular volume (MCV)Ordered By: Payam Reyna on 02-03-2023 MCV (RBC) [Entitic vol] 103.9 fL 81-99 [facility] Hematocrit Auto (Bld) [Volum e fraction]Ordered By: Payam Reyna on 02-03-2023 Hematocrit (Bld) [Volume fraction] 37.2 % 37-47 [facility] Laboratory - Chemistry and C hemistry - challengeOrdered By: Payam Reyan on 02-03-2023 ALP [Catalytic activity/Vol] 88 U/L 45-117 [facility] ALT [Catalytic activity/Vol] 36 U/L 13-56 [facility] CO2 [Moles/Vol] 27.0 mmol/L 21.0-32.0 [facility] Globulin (S) [Mass/Vol] 4.5 g/dL 2.2-4.2 [facility] Urea nitrogen/Creatinine [Mass ratio] 22.9 mg/mg 10-20 [facility] Laboratory - Hematology and Cell countsOrdered By: Payam Reyna on 02-03-2023 Erythrocyte distribution width (RBC) [Entitic vol] 55.1 fL 35.1-43.9 [facility] Erythrocyte distribution width (RBC) [Ratio] 14.5 % 11.6-14.6 [facility] Immature granulocytes/100 WBC (Bld) 0.300 % 0.0-0.9 [facility] Comment on above: IG% - Immature Granu locytes (promyelocytes, myelocytes and metamyelocytes) > 1% indicates that a LEFT SHIFT is Present. MCH (RBC) [Entitic mass] 34.4 pg 27.0-32.0 [facility] Nucleated RBC/100 WBC (Bld) [Ratio] 0 % 0-5 [facility] MCHC Auto (RBC) [Mass/Vol]Or dered By: Payam Reyna on 02-03-2023 MCHC (RBC) [Mass/Vol] 33.1 g/dL 32-36 [facility] No Panel InformationOrdered By: Payam Reyna on 02-03-2023 Estimated GFR (MDRD) Amer 110 mL/min >60 [facility] Comment on above: GFR Calc Estimated GFR (MDRD) Non-Af Amer 91 mL/min >60 [facility] Comment on above: Non- GFR Calc Platelets bldOrdered By: Fredy Reyna on 02-03-2023 Platelets (Bld) [#/Vol] 134 10*3/uL 150-450 [facility] Serum or plasma albumin yonatan urement (mass/volume)Ordered By: Payam Reyna on 02-03-2023 Albumin [Mass/Vol] 2.8 g/dL 3.2-5.0 [facility] Serum or plasma albumin/glob ulin mass ratioOrdered By: Angelitomerylmichaelgarfield Herronrejialyssa on 02-03-2023 Albumin/Globulin [Mass ratio] 0.6 {ratio} 0.9-2.4 [facility] Serum or plasma calcium yonatan urement (mass/volume)Ordered By: Payam Reyna on 02-03-2023 Calcium [Mass/Vol] 9.2 mg/dL 8.5-10.1 [facility] Serum or plasma creatinine m easurement (mass/volume)Ordered By: Payam Herronrejialyssa on 02-03-2023 Creatinine [Mass/Vol] 0.66 mg/dL 0.55-1.02 [facility] Comment on above: The validity of the calculated GFR & GFRAA in patients over 70 years has not been determined. Clinical correlation is essential. Serum or plasma urea nitroge n measurement (mass/volume)Ordered By: Payam Reyna on 02-03-2023 Urea nitrogen [Mass/Vol] 15 mg/dL 7-18 [facility] Thin prep Papanicolaou smear with manual screeningOrdered By: Angelitomerylailyn Gopaljodi on 02-03-2023 Thin prep Papanicolaou smear with manual screening 29 U/L 15-37 [facility] Thin prep Papanicolaou smear with manual screening 6 5-15 [facility] Absolute lymphocyte countOrd ered By: Angelitoarline Herronrejialyssa on 12-30-2022 Lymphocytes Auto (Unsp spec) [#/Vol] 1.24 10*3/uL 0.83-4.51 [facility] Basophil percentageOrdered B y: Jamisongarfield Herronjodi on 12-30-2022 Basophils/100 WBC (Bld) 0.8 % 0-1 [facility] Bilirubin [Mass/Vol] 0.60 mg/dL 0.20-1.00 [facility] Comment on above: For patients on eltr ombopag therapy, use of Dimension [place] TBIL is not recommended. Chloride [Moles/Vol] 111 mmol/L 98-107 [facility] Eosinophils/100 WBC (Bld) 2.6 % 0-5 [facility] Glucose [Mass/Vol] 81 mg/dL 74-106 [facility] Neutrophils (Bld) [#/Vol] 2.9 10*3/uL 2.0-7.7 [facility] Neutrophils/100 WBC (Bld) 57.5 % 47-70 [facility] Potassium [Moles/Vol] 4.1 mmol/L 3.5-5.1 [facility] Protein [Mass/Vol] 6.8 g/dL 6.4-8.2 [facility] Sodium [Moles/Vol] 141 mmol/L 136-145 [facility] WBC (Bld) [#/Vol] 5.0 10*3/uL 4.4-11.0 [facility] Blood erythrocytes count (nu mber/volume)Ordered By: Payam Reyna on 12-30-2022 RBC (Bld) [#/Vol] 3.26 10*6/uL 4.2-5.4 [facility] Blood hemoglobin measurement (mass/volume)Ordered By: Payam Reyna on 12-30-2022 Hemoglobin (Bld) [Mass/Vol] 11.8 g/dL 12.0-15.0 [facility] Blood lymphocytes/100 leukoc ytesOrdered By: Payam Reyna on 12-30-2022 Lymphocytes/100 WBC (Bld) 25.0 % 19-41 [facility] Blood monocytes/100 leukocyt esOrdered By: Payam Reyna on 12-30-2022 Monocytes/100 WBC (Bld) 13.9 % 0-10 [facility] Blood platelet mean volumeOr dered By: Payam Reyna on 12-30-2022 Platelet mean volume (Bld) [Entitic vol] 10.1 fL 6.2-12.0 [facility] Determination of erythrocyte mean corpuscular volume (MCV)Ordered By: Payam Reyna on 12-30-2022 MCV (RBC) [Entitic vol] 104.6 fL 81-99 [facility] Hematocrit Auto (Bld) [Volum e fraction]Ordered By: Payam Reyna on 12-30-2022 Hematocrit (Bld) [Volume fraction] 34.1 % 37-47 [facility] Laboratory - Chemistry and C hemistry - challengeOrdered By: Paaym Reyna on 12-30-2022 ALP [Catalytic activity/Vol] 89 U/L 45-117 [facility] ALT [Catalytic activity/Vol] 25 U/L 13-56 [facility] CO2 [Moles/Vol] 25.0 mmol/L 21.0-32.0 [facility] Globulin (S) [Mass/Vol] 4.0 g/dL 2.2-4.2 [facility] Urea nitrogen/Creatinine [Mass ratio] 21.3 mg/mg 10-20 [facility] - Hematology and Cell countsOrdered By: Payam Reyna on 12-30-2022 Erythrocyte distribution width (RBC) [Entitic vol] 53.4 fL 35.1-43.9 [facility] Erythrocyte distribution width (RBC) [Ratio] 14.1 % 11.6-14.6 [facility] Immature granulocytes/100 WBC (Bld) 0.200 % 0.0-0.9 [facility] Comment on above: IG% - Immature Granu locytes (promyelocytes, myelocytes and metamyelocytes) > 1% indicates that a LEFT SHIFT is Present. MCH (RBC) [Entitic mass] 36.2 pg 27.0-32.0 [facility] Nucleated RBC/100 WBC (Bld) [Ratio] 0 % 0-5 [facility] MCHC Auto (RBC) [Mass/Vol]Or dered By: Payam Reyna on 12-30-2022 MCHC (RBC) [Mass/Vol] 34.6 g/dL 32-36 [facility] No Panel InformationOrdered By: Payam Reyna on 12-30-2022 Estimated GFR (MDRD) Amer 120 mL/min >60 [facility] Comment on above: GFR Calc Estimated GFR (MDRD) Non-Af Amer 99 mL/min >60 [facility] Comment on above: Non- GFR Calc Platelets bldOrdered By: Fredy Reyna on 12-30-2022 Platelets (Bld) [#/Vol] 111 10*3/uL 150-450 [facility] Serum or plasma albumin yonatan urement (mass/volume)Ordered By: Payam Reyna on 12-30-2022 Albumin [Mass/Vol] 2.8 g/dL 3.2-5.0 [facility] Serum or plasma albumin/glob ulin mass ratioOrdered By: arline Reyna on 12-30-2022 Albumin/Globulin [Mass ratio] 0.7 {ratio} 0.9-2.4 [facility] Serum or plasma calcium yonatan urement (mass/volume)Ordered By: merylbuena vistagarfield Reyna on 12-30-2022 Calcium [Mass/Vol] 9.1 mg/dL 8.5-10.1 [facility] Serum or plasma creatinine m easurement (mass/volume)Ordered By: arline Reyna on 12-30-2022 Creatinine [Mass/Vol] 0.61 mg/dL 0.55-1.02 [facility] Comment on above: The validity of the calculated GFR & GFRAA in patients over 70 years has not been determined. Clinical correlation is essential. Serum or plasma urea nitroge n measurement (mass/volume)Ordered By: Payam Reyna on 12-30-2022 Urea nitrogen [Mass/Vol] 13 mg/dL 7-18 [facility] Thin prep Papanicolaou smear with manual screeningOrdered By: arline Reyna on 12-30-2022 Thin prep Papanicolaou smear with manual screening 25 U/L 15-37 [facility] Thin prep Papanicolaou smear with manual screening 5 5-15 [facility] Absolute lymphocyte countOrd ered By: Payam Reyna on 12-02-2022 Lymphocytes Auto (Unsp spec) [#/Vol] 1.55 10*3/uL 0.83-4.51 [facility] Basophil percentageOrdered B y: Angelitomerylmichaelgarfield Reyna on 12-02-2022 Basophils/100 WBC (Bld) 0.4 % 0-1 [facility] Bilirubin [Mass/Vol] 0.60 mg/dL 0.20-1.00 [facility] Comment on above: For patients on eltr ombopag therapy, use of Dimension [place] TBIL is not recommended. Chloride [Moles/Vol] 109 mmol/L 98-107 [facility] Eosinophils/100 WBC (Bld) 2.3 % 0-5 [facility] Glucose [Mass/Vol] 82 mg/dL 74-106 [facility] Neutrophils (Bld) [#/Vol] 3.0 10*3/uL 2.0-7.7 [facility] Neutrophils/100 WBC (Bld) 56.8 % 47-70 [facility] Potassium [Moles/Vol] 4.5 mmol/L 3.5-5.1 [facility] Protein [Mass/Vol] 7.0 g/dL 6.4-8.2 [facility] Sodium [Moles/Vol] 140 mmol/L 136-145 [facility] WBC (Bld) [#/Vol] 5.3 10*3/uL 4.4-11.0 [facility] Blood erythrocytes count (nu mber/volume)Ordered By: Payam Reyna on 12-02-2022 RBC (Bld) [#/Vol] 3.54 10*6/uL 4.2-5.4 [facility] Blood hemoglobin measurement (mass/volume)Ordered By: Payam Reyna on 12-02-2022 Hemoglobin (Bld) [Mass/Vol] 12.2 g/dL 12.0-15.0 [facility] Blood lymphocytes/100 leukoc ytesOrdered By: Payam Reyna on 12-02-2022 Lymphocytes/100 WBC (Bld) 29.3 % 19-41 [facility] Blood monocytes/100 leukocyt esOrdered By: Payam Reyna on 12-02-2022 Monocytes/100 WBC (Bld) 10.8 % 0-10 [facility] Blood platelet mean volumeOr dered By: Payam Reyna on 12-02-2022 Platelet mean volume (Bld) [Entitic vol] 10.1 fL 6.2-12.0 [facility] Determination of erythrocyte mean corpuscular volume (MCV)Ordered By: Payam Reyna on 12-02-2022 MCV (RBC) [Entitic vol] 104.8 fL 81-99 [facility] Hematocrit Auto (Bld) [Volum e fraction]Ordered By: Payam Reyna on 12-02-2022 Hematocrit (Bld) [Volume fraction] 37.1 % 37-47 [facility] - Chemistry and C hemistry - challengeOrdered By: Payam Reyna on 12-02-2022 ALP [Catalytic activity/Vol] 90 U/L 45-117 [facility] ALT [Catalytic activity/Vol] 30 U/L 13-56 [facility] CO2 [Moles/Vol] 26.0 mmol/L 21.0-32.0 [facility] Globulin (S) [Mass/Vol] 4.0 g/dL 2.2-4.2 [facility] Urea nitrogen/Creatinine [Mass ratio] 25.4 mg/mg 10-20 [facility] - Hematology and Cell countsOrdered By: Payam Reyna on 12-02-2022 Erythrocyte distribution width (RBC) [Entitic vol] 51.2 fL 35.1-43.9 [facility] Erythrocyte distribution width (RBC) [Ratio] 13.4 % 11.6-14.6 [facility] Immature granulocytes/100 WBC (Bld) 0.400 % 0.0-0.9 [facility] Comment on above: IG% - Immature Granu locytes (promyelocytes, myelocytes and metamyelocytes) > 1% indicates that a LEFT SHIFT is Present. MCH (RBC) [Entitic mass] 34.5 pg 27.0-32.0 [facility] Nucleated RBC/100 WBC (Bld) [Ratio] 0 % 0-5 [facility] MCHC Auto (RBC) [Mass/Vol]Or dered By: Payam Reyna on 12-02-2022 MCHC (RBC) [Mass/Vol] 32.9 g/dL 32-36 [facility] No Panel InformationOrdered By: Payam Reyna on 12-02-2022 Estimated GFR (MDRD) Amer 115 mL/min >60 [facility] Comment on above: GFR Calc Estimated GFR (MDRD) Non-Af Amer 95 mL/min >60 [facility] Comment on above: Non- GFR Calc Platelets bldOrdered By: Fredyalyssa ritter Maribell on 12-02-2022 Platelets (Bld) [#/Vol] 117 10*3/uL 150-450 [facility] Serum or plasma albumin yonatan urement (mass/volume)Ordered By: Payam Reyna on 12-02-2022 Albumin [Mass/Vol] 3.0 g/dL 3.2-5.0 [facility] Serum or plasma albumin/glob ulin mass ratioOrdered By: Payam Reyna on 12-02-2022 Albumin/Globulin [Mass ratio] 0.8 {ratio} 0.9-2.4 [facility] Serum or plasma calcium yonatan urement (mass/volume)Ordered By: Payam Reyna on 12-02-2022 Calcium [Mass/Vol] 8.9 mg/dL 8.5-10.1 [facility] Serum or plasma creatinine m easurement (mass/volume)Ordered By: Payam Reyna on 12-02-2022 Creatinine [Mass/Vol] 0.63 mg/dL 0.55-1.02 [facility] Comment on above: The validity of the calculated GFR & GFRAA in patients over 70 years has not been determined. Clinical correlation is essential. Serum or plasma urea nitroge n measurement (mass/volume)Ordered By: Payam Reyna on 12-02-2022 Urea nitrogen [Mass/Vol] 16 mg/dL 7-18 [facility] Thin prep Papanicolaou smear with manual screeningOrdered By: Payam Reyna on 12-02-2022 Thin prep Papanicolaou smear with manual screening 34 U/L 15-37 [facility] Thin prep Papanicolaou smear with manual screening 5 5-15 [facility] XR WRIST GENERAL 3V PA/LAT/O BL RIGHTon 11-25-2022 [facility] Absolute lymphocyte countOrd ered By: Payam Reyna on 11-04-2022 Lymphocytes Auto (Unsp spec) [#/Vol] 1.45 10*3/uL 0.83-4.51 [facility] Basophil percentageOrdered B y: Payam Reyna on 11-04-2022 Basophils/100 WBC (Bld) 0.7 % 0-1 [facility] Bilirubin [Mass/Vol] 0.60 mg/dL 0.20-1.00 [facility] Comment on above: For patients on eltr ombopag therapy, use of Dimension [place] TBIL is not recommended. Chloride [Moles/Vol] 111 mmol/L 98-107 [facility] Eosinophils/100 WBC (Bld) 2.4 % 0-5 [facility] Glucose [Mass/Vol] 84 mg/dL 74-106 [facility] Neutrophils (Bld) [#/Vol] 2.4 10*3/uL 2.0-7.7 [facility] Neutrophils/100 WBC (Bld) 52.9 % 47-70 [facility] Potassium [Moles/Vol] 4.0 mmol/L 3.5-5.1 [facility] Protein [Mass/Vol] 7.2 g/dL 6.4-8.2 [facility] Sodium [Moles/Vol] 141 mmol/L 136-145 [facility] WBC (Bld) [#/Vol] 4.6 10*3/uL 4.4-11.0 [facility] Blood erythrocytes count (nu mber/volume)Ordered By: Payam Reyna on 11-04-2022 RBC (Bld) [#/Vol] 3.31 10*6/uL 4.2-5.4 [facility] Blood hemoglobin measurement (mass/volume)Ordered By: Payam Reyna on 11-04-2022 Hemoglobin (Bld) [Mass/Vol] 11.5 g/dL 12.0-15.0 [facility] Blood lymphocytes/100 leukoc ytesOrdered By: Payam Reyna on 11-04-2022 Lymphocytes/100 WBC (Bld) 31.9 % 19-41 [facility] Blood monocytes/100 leukocyt esOrdered By: Payam Reyna on 11-04-2022 Monocytes/100 WBC (Bld) 11.9 % 0-10 [facility] Blood platelet mean volumeOr dered By: Payam Reyna on 11-04-2022 Platelet mean volume (Bld) [Entitic vol] 10.0 fL 6.2-12.0 [facility] Determination of erythrocyte mean corpuscular volume (MCV)Ordered By: Payam Reyna on 11-04-2022 MCV (RBC) [Entitic vol] 107.6 fL 81-99 [facility] Hematocrit Auto (Bld) [Volum e fraction]Ordered By: merylbuena vistagarfield Reyna on 11-04-2022 Hematocrit (Bld) [Volume fraction] 35.6 % 37-47 [facility] - Chemistry and C hemistry - challengeOrdered By: merylbuena vistagarfield Reyna on 11-04-2022 ALP [Catalytic activity/Vol] 88 U/L 45-117 [facility] ALT [Catalytic activity/Vol] 22 U/L 13-56 [facility] CO2 [Moles/Vol] 26.0 mmol/L 21.0-32.0 [facility] Globulin (S) [Mass/Vol] 4.3 g/dL 2.2-4.2 [facility] Urea nitrogen/Creatinine [Mass ratio] 21.2 mg/mg 10-20 [facility] - Hematology and Cell countsOrdered By: [facility] Herronalyssa on 11-04-2022 Erythrocyte distribution width (RBC) [Entitic vol] 52.2 fL 35.1-43.9 [facility] Erythrocyte distribution width (RBC) [Ratio] 13.2 % 11.6-14.6 [facility] Immature granulocytes/100 WBC (Bld) 0.200 % 0.0-0.9 [facility] Comment on above: IG% - Immature Granu locytes (promyelocytes, myelocytes and metamyelocytes) > 1% indicates that a LEFT SHIFT is Present. MCH (RBC) [Entitic mass] 34.7 pg 27.0-32.0 [facility] Nucleated RBC/100 WBC (Bld) [Ratio] 0 % 0-5 [facility] MCHC Auto (RBC) [Mass/Vol]Or dered By: Payam Reyna on 11-04-2022 MCHC (RBC) [Mass/Vol] 32.3 g/dL 32-36 [facility] No Panel InformationOrdered By: Payam Reyna on 11-04-2022 Estimated GFR (MDRD) Amer 119 mL/min >60 [facility] Comment on above: GFR Calc Estimated GFR (MDRD) Non-Af Amer 98 mL/min >60 [facility] Comment on above: Non- GFR Calc Thyroid Stimulating Hormone (TSH) 0.93 uIU/mL 0.358-3.74 [facility] Platelets bldOrdered By: Fredy Reyna on 11-04-2022 Platelets (Bld) [#/Vol] 114 10*3/uL 150-450 [facility] Serum or plasma albumin yonatan urement (mass/volume)Ordered By: Payam Reyna on 11-04-2022 Albumin [Mass/Vol] 2.9 g/dL 3.2-5.0 [facility] Serum or plasma albumin/glob ulin mass ratioOrdered By: Payam Reyna on 11-04-2022 Albumin/Globulin [Mass ratio] 0.7 {ratio} 0.9-2.4 [facility] Serum or plasma calcium yonatan urement (mass/volume)Ordered By: Payam Reyna on 11-04-2022 Calcium [Mass/Vol] 9.4 mg/dL 8.5-10.1 [facility] Serum or plasma creatinine m easurement (mass/volume)Ordered By: Payam Reyna on 11-04-2022 Creatinine [Mass/Vol] 0.61 mg/dL 0.55-1.02 [facility] Comment on above: The validity of the calculated GFR & GFRAA in patients over 70 years has not been determined. Clinical correlation is essential. Serum or plasma urea nitroge n measurement (mass/volume)Ordered By: Payam Reyna on 11-04-2022 Urea nitrogen [Mass/Vol] 13 mg/dL 7-18 [facility] Thin prep Papanicolaou smear with manual screeningOrdered By: Payam Reyna on 11-04-2022 Thin prep Papanicolaou smear with manual screening 29 U/L 15-37 [facility] Thin prep Papanicolaou smear with manual screening 4 5-15 [facility] Absolute lymphocyte countOrd ered By: Payam Reyna on 09-30-2022 Lymphocytes Auto (Unsp spec) [#/Vol] 1.40 10*3/uL 0.83-4.51 [facility] Basophil percentageOrdered B y: Payam Reyna on 09-30-2022 Basophils/100 WBC (Bld) 0.5 % 0-1 [facility] Bilirubin [Mass/Vol] 0.80 mg/dL 0.20-1.00 [facility] Comment on above: For patients on eltr ombopag therapy, use of Dimension [place] TBIL is not recommended. Chloride [Moles/Vol] 113 mmol/L 98-107 [facility] Eosinophils/100 WBC (Bld) 2.2 % 0-5 [facility] Glucose [Mass/Vol] 80 mg/dL 74-106 [facility] Neutrophils (Bld) [#/Vol] 2.2 10*3/uL 2.0-7.7 [facility] Neutrophils/100 WBC (Bld) 52.0 % 47-70 [facility] Potassium [Moles/Vol] 3.8 mmol/L 3.5-5.1 [facility] Protein [Mass/Vol] 6.6 g/dL 6.4-8.2 [facility] Sodium [Moles/Vol] 142 mmol/L 136-145 [facility] WBC (Bld) [#/Vol] 4.1 10*3/uL 4.4-11.0 [facility] Blood erythrocytes count (nu mber/volume)Ordered By: Payam Reyna on 09-30-2022 RBC (Bld) [#/Vol] 2.92 10*6/uL 4.2-5.4 [facility] Blood hemoglobin measurement (mass/volume)Ordered By: Payam Reyna on 09-30-2022 Hemoglobin (Bld) [Mass/Vol] 10.7 g/dL 12.0-15.0 [facility] Blood lymphocytes/100 leukoc ytesOrdered By: Payam Reyna on 09-30-2022 Lymphocytes/100 WBC (Bld) 33.9 % 19-41 [facility] Blood monocytes/100 leukocyt esOrdered By: Payam Reyna on 09-30-2022 Monocytes/100 WBC (Bld) 11.4 % 0-10 [facility] Blood platelet mean volumeOr dered By: Payam Reyna on 09-30-2022 Platelet mean volume (Bld) [Entitic vol] 9.8 fL 6.2-12.0 [facility] Determination of erythrocyte mean corpuscular volume (MCV)Ordered By: Payam Reyna on 09-30-2022 MCV (RBC) [Entitic vol] 108.2 fL 81-99 [facility] Hematocrit Auto (Bld) [Volum e fraction]Ordered By: [facility] on 09-30-2022 Hematocrit (Bld) [Volume fraction] 31.6 % 37-47 [facility] - Chemistry and C hemistry - challengeOrdered By: Payam Reyna on 09-30-2022 ALP [Catalytic activity/Vol] 77 U/L 45-117 [facility] ALT [Catalytic activity/Vol] 20 U/L 13-56 [facility] CO2 [Moles/Vol] 24.0 mmol/L 21.0-32.0 [facility] Globulin (S) [Mass/Vol] 3.9 g/dL 2.2-4.2 [facility] Urea nitrogen/Creatinine [Mass ratio] 20.1 mg/mg 10-20 [facility] - Hematology and Cell countsOrdered By: Payam Reyna on 09-30-2022 Erythrocyte distribution width (RBC) [Entitic vol] 56.6 fL 35.1-43.9 [facility] Erythrocyte distribution width (RBC) [Ratio] 14.3 % 11.6-14.6 [facility] Immature granulocytes/100 WBC (Bld) 0.000 % 0.0-0.9 [facility] Comment on above: IG% - Immature Granu locytes (promyelocytes, myelocytes and metamyelocytes) > 1% indicates that a LEFT SHIFT is Present. MCH (RBC) [Entitic mass] 36.6 pg 27.0-32.0 [facility] Nucleated RBC/100 WBC (Bld) [Ratio] 0 % 0-5 [facility] MCHC Auto (RBC) [Mass/Vol]Or dered By: Payam Reyna on 09-30-2022 MCHC (RBC) [Mass/Vol] 33.9 g/dL 32-36 [facility] No Panel InformationOrdered By: Payam Reyna on 09-30-2022 Estimated GFR (MDRD) Amer 112 mL/min >60 [facility] Comment on above: GFR Calc Estimated GFR (MDRD) Non-Af Amer 92 mL/min >60 [facility] Comment on above: Non- GFR Calc Platelets bldOrdered By: Fredy Reyna on 09-30-2022 Platelets (Bld) [#/Vol] 104 10*3/uL 150-450 [facility] Serum or plasma albumin yonatan urement (mass/volume)Ordered By: Payam Reyna on 09-30-2022 Albumin [Mass/Vol] 2.7 g/dL 3.2-5.0 [facility] Serum or plasma albumin/glob ulin mass ratioOrdered By: Payam Reyna on 09-30-2022 Albumin/Globulin [Mass ratio] 0.7 {ratio} 0.9-2.4 [facility] Serum or plasma calcium yonatan urement (mass/volume)Ordered By: Payam Reyna on 09-30-2022 Calcium [Mass/Vol] 8.8 mg/dL 8.5-10.1 [facility] Serum or plasma creatinine m easurement (mass/volume)Ordered By: Payam Reyna on 09-30-2022 Creatinine [Mass/Vol] 0.65 mg/dL 0.55-1.02 [facility] Comment on above: The validity of the calculated GFR & GFRAA in patients over 70 years has not been determined. Clinical correlation is essential. Serum or plasma urea nitroge n measurement (mass/volume)Ordered By: Payam Reyna on 09-30-2022 Urea nitrogen [Mass/Vol] 13 mg/dL 7-18 [facility] Thin prep Papanicolaou smear with manual screeningOrdered By: Payam Reyna on 09-30-2022 Thin prep Papanicolaou smear with manual screening 27 U/L 15-37 [facility] Thin prep Papanicolaou smear with manual screening 5 5-15 [facility] Absolute lymphocyte countOrd ered By: Payam Reyna on 09-19-2022 Lymphocytes Auto (Unsp spec) [#/Vol] 1.39 10*3/uL 0.83-4.51 [facility] Basophil percentageOrdered B y: Payam Reyna on 09-19-2022 Basophils/100 WBC (Bld) 0.5 % 0-1 [facility] Eosinophils/100 WBC (Bld) 2.0 % 0-5 [facility] Neutrophils (Bld) [#/Vol] 2.1 10*3/uL 2.0-7.7 [facility] Neutrophils/100 WBC (Bld) 51.6 % 47-70 [facility] WBC (Bld) [#/Vol] 4.1 10*3/uL 4.4-11.0 [facility] Blood erythrocytes count (nu mber/volume)Ordered By: Payam Reyna on 09-19-2022 RBC (Bld) [#/Vol] 2.84 10*6/uL 4.2-5.4 [facility] Blood hemoglobin measurement (mass/volume)Ordered By: Payam Reyna on 09-19-2022 Hemoglobin (Bld) [Mass/Vol] 10.2 g/dL 12.0-15.0 [facility] Blood lymphocytes/100 leukoc ytesOrdered By: Payam Reyna on 09-19-2022 Lymphocytes/100 WBC (Bld) 34.3 % 19-41 [facility] Blood monocytes/100 leukocyt esOrdered By: Payam Reyna on 09-19-2022 Monocytes/100 WBC (Bld) 11.4 % 0-10 [facility] Blood platelet mean volumeOr dered By: Payam Reyna on 09-19-2022 Platelet mean volume (Bld) [Entitic vol] 9.9 fL 6.2-12.0 [facility] Determination of erythrocyte mean corpuscular volume (MCV)Ordered By: Payam Reyna on 09-19-2022 MCV (RBC) [Entitic vol] 106.3 fL 81-99 [facility] Hematocrit Auto (Bld) [Volum e fraction]Ordered By: Payam Reyna on 09-19-2022 Hematocrit (Bld) [Volume fraction] 30.2 % 37-47 [facility] - Hematology and Cell countsOrdered By: Payam Reyna on 09-19-2022 Erythrocyte distribution width (RBC) [Entitic vol] 56.1 fL 35.1-43.9 [facility] Erythrocyte distribution width (RBC) [Ratio] 14.3 % 11.6-14.6 [facility] Immature granulocytes/100 WBC (Bld) 0.200 % 0.0-0.9 [facility] Comment on above: IG% - Immature Granu locytes (promyelocytes, myelocytes and metamyelocytes) > 1% indicates that a LEFT SHIFT is Present. MCH (RBC) [Entitic mass] 35.9 pg 27.0-32.0 [facility] Nucleated RBC/100 WBC (Bld) [Ratio] 0 % 0-5 [facility] MCHC Auto (RBC) [Mass/Vol]Or dered By: Payam Reyna on 09-19-2022 MCHC (RBC) [Mass/Vol] 33.8 g/dL 32-36 [facility] Platelets bldOrdered By: Fredy Reyna on 09-19-2022 Platelets (Bld) [#/Vol] 106 10*3/uL 150-450 [facility] Absolute lymphocyte countOrd ered By: Payam Reyna on 09-02-2022 Lymphocytes Auto (Unsp spec) [#/Vol] 1.47 10*3/uL 0.83-4.51 [facility] Basophil percentageOrdered B y: Payam Reyna on 09-02-2022 Basophils/100 WBC (Bld) 0.8 % 0-1 [facility] Bilirubin [Mass/Vol] 0.90 mg/dL 0.20-1.00 [facility] Comment on above: For patients on eltr ombopag therapy, use of Dimension [place] TBIL is not recommended. Chloride [Moles/Vol] 110 mmol/L 98-107 [facility] Eosinophils/100 WBC (Bld) 1.6 % 0-5 [facility] Glucose [Mass/Vol] 83 mg/dL 74-106 [facility] Neutrophils (Bld) [#/Vol] 3.6 10*3/uL 2.0-7.7 [facility] Neutrophils/100 WBC (Bld) 60.1 % 47-70 [facility] Potassium [Moles/Vol] 4.0 mmol/L 3.5-5.1 [facility] Protein [Mass/Vol] 7.5 g/dL 6.4-8.2 [facility] Sodium [Moles/Vol] 141 mmol/L 136-145 [facility] WBC (Bld) [#/Vol] 6.1 10*3/uL 4.4-11.0 [facility] Blood erythrocytes count (nu mber/volume)Ordered By: Payam Reyna on 09-02-2022 RBC (Bld) [#/Vol] 3.50 10*6/uL 4.2-5.4 [facility] Blood hemoglobin measurement (mass/volume)Ordered By: Payam Reyna on 09-02-2022 Hemoglobin (Bld) [Mass/Vol] 12.2 g/dL 12.0-15.0 [facility] Blood lymphocytes/100 leukoc ytesOrdered By: Payam Reyna on 09-02-2022 Lymphocytes/100 WBC (Bld) 24.2 % 19-41 [facility] Blood monocytes/100 leukocyt esOrdered By: Payam Reyna on 09-02-2022 Monocytes/100 WBC (Bld) 13.0 % 0-10 [facility] Blood platelet mean volumeOr dered By: Payam Reyna on 09-02-2022 Platelet mean volume (Bld) [Entitic vol] 9.7 fL 6.2-12.0 [facility] Determination of erythrocyte mean corpuscular volume (MCV)Ordered By: Payam Reyna on 09-02-2022 MCV (RBC) [Entitic vol] 105.7 fL 81-99 [facility] Hematocrit Auto (Bld) [Volum e fraction]Ordered By: Payam Reyna on 09-02-2022 Hematocrit (Bld) [Volume fraction] 37.0 % 37-47 [facility] - Chemistry and C hemistry - challengeOrdered By: Payam Reyna on 09-02-2022 ALP [Catalytic activity/Vol] 93 U/L 45-117 [facility] ALT [Catalytic activity/Vol] 24 U/L 13-56 [facility] CO2 [Moles/Vol] 25.0 mmol/L 21.0-32.0 [facility] Globulin (S) [Mass/Vol] 4.5 g/dL 2.2-4.2 [facility] Urea nitrogen/Creatinine [Mass ratio] 17.3 mg/mg 10-20 [facility] - Hematology and Cell countsOrdered By: Payam Reyna on 09-02-2022 Erythrocyte distribution width (RBC) [Entitic vol] 53.6 fL 35.1-43.9 [facility] Erythrocyte distribution width (RBC) [Ratio] 13.7 % 11.6-14.6 [facility] Immature granulocytes/100 WBC (Bld) 0.300 % 0.0-0.9 [facility] Comment on above: IG% - Immature Granu locytes (promyelocytes, myelocytes and metamyelocytes) > 1% indicates that a LEFT SHIFT is Present. MCH (RBC) [Entitic mass] 34.9 pg 27.0-32.0 [facility] Nucleated RBC/100 WBC (Bld) [Ratio] 0 % 0-5 [facility] MCHC Auto (RBC) [Mass/Vol]Or dered By: Payam Reyna on 09-02-2022 MCHC (RBC) [Mass/Vol] 33.0 g/dL 32-36 [facility] No Panel InformationOrdered By: Payam Reyna on 09-02-2022 Estimated GFR (MDRD) Amer 103 mL/min >60 [facility] Comment on above: GFR Calc Estimated GFR (MDRD) Non-Af Amer 85 mL/min >60 [facility] Comment on above: Non- GFR Calc Platelets bldOrdered By: Fredy Reyna on 09-02-2022 Platelets (Bld) [#/Vol] 104 10*3/uL 150-450 [facility] Serum or plasma albumin yonatan urement (mass/volume)Ordered By: Payam Reyna on 09-02-2022 Albumin [Mass/Vol] 3.0 g/dL 3.2-5.0 [facility] Serum or plasma albumin/glob ulin mass ratioOrdered By: arline Reyna on 09-02-2022 Albumin/Globulin [Mass ratio] 0.7 {ratio} 0.9-2.4 [facility] Serum or plasma calcium yonatan urement (mass/volume)Ordered By: Payam Reyna on 09-02-2022 Calcium [Mass/Vol] 9.5 mg/dL 8.5-10.1 [facility] Serum or plasma creatinine m easurement (mass/volume)Ordered By: arline Reyna on 09-02-2022 Creatinine [Mass/Vol] 0.69 mg/dL 0.55-1.02 [facility] Comment on above: The validity of the calculated GFR & GFRAA in patients over 70 years has not been determined. Clinical correlation is essential. Serum or plasma urea nitroge n measurement (mass/volume)Ordered By: Payam Reyna on 09-02-2022 Urea nitrogen [Mass/Vol] 12 mg/dL 7-18 [facility] Thin prep Papanicolaou smear with manual screeningOrdered By: arline Reyna on 09-02-2022 Thin prep Papanicolaou smear with manual screening 27 U/L 15-37 [facility] Thin prep Papanicolaou smear with manual screening 6 5-15 [facility] Absolute lymphocyte countOrd ered By: Payam Reyna on 07-29-2022 Lymphocytes Auto (Unsp spec) [#/Vol] 1.03 10*3/uL 0.83-4.51 [facility] Basophil percentageOrdered B y: Payam Reyna on 07-29-2022 Basophils/100 WBC (Bld) 0.6 % 0-1 [facility] Bilirubin [Mass/Vol] 0.80 mg/dL 0.20-1.00 [facility] Comment on above: For patients on eltr ombopag therapy, use of Dimension [place] TBIL is not recommended. Chloride [Moles/Vol] 110 mmol/L 98-107 [facility] Eosinophils/100 WBC (Bld) 1.8 % 0-5 [facility] Glucose [Mass/Vol] 75 mg/dL 74-106 [facility] Neutrophils (Bld) [#/Vol] 3.1 10*3/uL 2.0-7.7 [facility] Neutrophils/100 WBC (Bld) 62.1 % 47-70 [facility] Potassium [Moles/Vol] 4.1 mmol/L 3.5-5.1 [facility] Protein [Mass/Vol] 6.9 g/dL 6.4-8.2 [facility] Sodium [Moles/Vol] 141 mmol/L 136-145 [facility] WBC (Bld) [#/Vol] 5.0 10*3/uL 4.4-11.0 [facility] Blood erythrocytes count (nu mber/volume)Ordered By: Payam Reyna on 07-29-2022 RBC (Bld) [#/Vol] 3.25 10*6/uL 4.2-5.4 [facility] Blood hemoglobin measurement (mass/volume)Ordered By: Payam Reyna on 07-29-2022 Hemoglobin (Bld) [Mass/Vol] 11.6 g/dL 12.0-15.0 [facility] Blood lymphocytes/100 leukoc ytesOrdered By: Payam Reyna on 07-29-2022 Lymphocytes/100 WBC (Bld) 20.8 % 19-41 [facility] Blood monocytes/100 leukocyt esOrdered By: Payam Reyna on 07-29-2022 Monocytes/100 WBC (Bld) 14.5 % 0-10 [facility] Blood platelet mean volumeOr dered By: Payam Reyna on 07-29-2022 Platelet mean volume (Bld) [Entitic vol] 9.7 fL 6.2-12.0 [facility] Determination of erythrocyte mean corpuscular volume (MCV)Ordered By: Payam Reyna on 07-29-2022 MCV (RBC) [Entitic vol] 106.5 fL 81-99 [facility] Hematocrit Auto (Bld) [Volum e fraction]Ordered By: Payam Reyna on 07-29-2022 Hematocrit (Bld) [Volume fraction] 34.6 % 37-47 [facility] Laboratory - Chemistry and C hemistry - challengeOrdered By: Payam Reyna on 07-29-2022 ALP [Catalytic activity/Vol] 91 U/L 45-117 [facility] ALT [Catalytic activity/Vol] 23 U/L 13-56 [facility] CO2 [Moles/Vol] 24.0 mmol/L 21.0-32.0 [facility] Globulin (S) [Mass/Vol] 4.1 g/dL 2.2-4.2 [facility] Urea nitrogen/Creatinine [Mass ratio] 23.1 mg/mg 10-20 [facility] Laboratory - Hematology and Cell countsOrdered By: Payam Reyna on 07-29-2022 Erythrocyte distribution width (RBC) [Entitic vol] 53.7 fL 35.1-43.9 [facility] Erythrocyte distribution width (RBC) [Ratio] 13.7 % 11.6-14.6 [facility] Immature granulocytes/100 WBC (Bld) 0.200 % 0.0-0.9 [facility] Comment on above: IG% - Immature Granu locytes (promyelocytes, myelocytes and metamyelocytes) > 1% indicates that a LEFT SHIFT is Present. MCH (RBC) [Entitic mass] 35.7 pg 27.0-32.0 [facility] Nucleated RBC/100 WBC (Bld) [Ratio] 0 % 0-5 [facility] MCHC Auto (RBC) [Mass/Vol]Or dered By: Payam Reyna on 07-29-2022 MCHC (RBC) [Mass/Vol] 33.5 g/dL 32-36 [facility] No Panel InformationOrdered By: Payam Reyna on 07-29-2022 Estimated GFR (MDRD) Amer 131 mL/min >60 [facility] Comment on above: GFR Calc Estimated GFR (MDRD) Non-Af Amer 109 mL/min >60 [facility] Comment on above: Non- GFR Calc Platelets bldOrdered By: Fredy Reyna on 07-29-2022 Platelets (Bld) [#/Vol] 112 10*3/uL 150-450 [facility] Serum or plasma albumin yonatan urement (mass/volume)Ordered By: Payam Gopalrejialyssa on 07-29-2022 Albumin [Mass/Vol] 2.8 g/dL 3.2-5.0 [facility] Serum or plasma albumin/glob ulin mass ratioOrdered By: Angelitomerylailyn Gopalrejialyssa on 07-29-2022 Albumin/Globulin [Mass ratio] 0.7 {ratio} 0.9-2.4 [facility] Serum or plasma calcium yonatan urement (mass/volume)Ordered By: Payam Gopalrejialyssa on 07-29-2022 Calcium [Mass/Vol] 9.4 mg/dL 8.5-10.1 [facility] Serum or plasma creatinine m easurement (mass/volume)Ordered By: Angelitomerylailyn Gopalrejialyssa on 07-29-2022 Creatinine [Mass/Vol] 0.56 mg/dL 0.55-1.02 [facility] Comment on above: The validity of the calculated GFR & GFRAA in patients over 70 years has not been determined. Clinical correlation is essential. Serum or plasma urea nitroge n measurement (mass/volume)Ordered By: Jamisongarfield Herronrejialyssa on 07-29-2022 Urea nitrogen [Mass/Vol] 13 mg/dL 7-18 [facility] Thin prep Papanicolaou smear with manual screeningOrdered By: Payam Gopaljodi on 07-29-2022 Thin prep Papanicolaou smear with manual screening 29 U/L [facility] Thin prep Papanicolaou smear with manual screening 7 - [facility] Absolute lymphocyte countOrd ered By: Payam Gopaljodi on 07-01-2022 Lymphocytes Auto (Unsp spec) [#/Vol] 1.43 10*3/uL 0.83-4.51 [facility] Basophil percentageOrdered B y: Jamisongarfield Herronjodi on 07-01-2022 Basophils/100 WBC (Bld) 1.0 % 0-1 [facility] Bilirubin [Mass/Vol] 0.60 mg/dL 0.20-1.00 [facility] Comment on above: For patients on eltr ombopag therapy, use of Dimension [place] TBIL is not recommended. Chloride [Moles/Vol] 109 mmol/L 98-107 [facility] Eosinophils/100 WBC (Bld) 2.0 % 0-5 [facility] Glucose [Mass/Vol] 80 mg/dL 74-106 [facility] Neutrophils (Bld) [#/Vol] 2.0 10*3/uL 2.0-7.7 [facility] Neutrophils/100 WBC (Bld) 49.1 % 47-70 [facility] Potassium [Moles/Vol] 4.1 mmol/L 3.5-5.1 [facility] Protein [Mass/Vol] 6.3 g/dL 6.4-8.2 [facility] Sodium [Moles/Vol] 140 mmol/L 136-145 [facility] WBC (Bld) [#/Vol] 4.1 10*3/uL 4.4-11.0 [facility] Blood erythrocytes count (nu mber/volume)Ordered By: Payam Reyna on 07-01-2022 RBC (Bld) [#/Vol] 3.07 10*6/uL 4.2-5.4 [facility] Blood hemoglobin measurement (mass/volume)Ordered By: Payam Reyna on 07-01-2022 Hemoglobin (Bld) [Mass/Vol] 10.9 g/dL 12.0-15.0 [facility] Blood lymphocytes/100 leukoc ytesOrdered By: Payam Reyna on 07-01-2022 Lymphocytes/100 WBC (Bld) 35.3 % 19-41 [facility] Blood monocytes/100 leukocyt esOrdered By: Payam Reyna on 07-01-2022 Monocytes/100 WBC (Bld) 12.1 % 0-10 [facility] Blood platelet mean volumeOr dered By: Payam Reyna on 07-01-2022 Platelet mean volume (Bld) [Entitic vol] 10.1 fL 6.2-12.0 [facility] Determination of erythrocyte mean corpuscular volume (MCV)Ordered By: Payam Reyna on 07-01-2022 MCV (RBC) [Entitic vol] 103.9 fL 81-99 [facility] Hematocrit Auto (Bld) [Volum e fraction]Ordered By: Payam Reyna on 07-01-2022 Hematocrit (Bld) [Volume fraction] 31.9 % 37-47 [facility] Laboratory - Chemistry and C hemistry - challengeOrdered By: merylbuena vistagarfield Reyna on 07-01-2022 ALP [Catalytic activity/Vol] 93 U/L 45-117 [facility] ALT [Catalytic activity/Vol] 23 U/L 13-56 [facility] CO2 [Moles/Vol] 26.0 mmol/L 21.0-32.0 [facility] Globulin (S) [Mass/Vol] 3.5 g/dL 2.2-4.2 [facility] Urea nitrogen/Creatinine [Mass ratio] 16.4 mg/mg 10-20 [facility] - Hematology and Cell countsOrdered By: Jasbuena vistagarfield Reyna on 07-01-2022 Erythrocyte distribution width (RBC) [Entitic vol] 53.4 fL 35.1-43.9 [facility] Erythrocyte distribution width (RBC) [Ratio] 13.9 % 11.6-14.6 [facility] Immature granulocytes/100 WBC (Bld) 0.500 % 0.0-0.9 [facility] Comment on above: IG% - Immature Granu locytes (promyelocytes, myelocytes and metamyelocytes) > 1% indicates that a LEFT SHIFT is Present. MCH (RBC) [Entitic mass] 35.5 pg 27.0-32.0 [facility] Nucleated RBC/100 WBC (Bld) [Ratio] 0 % 0-5 [facility] MCHC Auto (RBC) [Mass/Vol]Or dered By: Payam Reyna on 07-01-2022 MCHC (RBC) [Mass/Vol] 34.2 g/dL 32-36 [facility] No Panel InformationOrdered By: Payam Reyna on 07-01-2022 Estimated GFR (MDRD) Amer 120 mL/min >60 [facility] Comment on above: GFR Calc Estimated GFR (MDRD) Non-Af Amer 99 mL/min >60 [facility] Comment on above: Non- GFR Calc Platelets bldOrdered By: Fredy Reyna on 07-01-2022 Platelets (Bld) [#/Vol] 104 10*3/uL 150-450 [facility] Serum or plasma albumin yonatan urement (mass/volume)Ordered By: Payam Reyna on 07-01-2022 Albumin [Mass/Vol] 2.8 g/dL 3.2-5.0 [facility] Serum or plasma albumin/glob ulin mass ratioOrdered By: Payam Reyna on 07-01-2022 Albumin/Globulin [Mass ratio] 0.8 {ratio} 0.9-2.4 [facility] Serum or plasma calcium yonatan urement (mass/volume)Ordered By: Payam Reyna on 07-01-2022 Calcium [Mass/Vol] 9.3 mg/dL 8.5-10.1 [facility] Serum or plasma creatinine m easurement (mass/volume)Ordered By: Payam Reyna on 07-01-2022 Creatinine [Mass/Vol] 0.61 mg/dL 0.55-1.02 [facility] Comment on above: The validity of the calculated GFR & GFRAA in patients over 70 years has not been determined. Clinical correlation is essential. Serum or plasma urea nitroge n measurement (mass/volume)Ordered By: Payam Reyna on 07-01-2022 Urea nitrogen [Mass/Vol] 10 mg/dL 7-18 [facility] Thin prep Papanicolaou smear with manual screeningOrdered By: Payam Reyna on 07-01-2022 Thin prep Papanicolaou smear with manual screening 28 U/L 15-37 [facility] Thin prep Papanicolaou smear with manual screening 5 5-15 [facility] XR RIBS 2V AP/OBL RIGHTon [facility] Absolute lymphocyte countOrd ered By: Payam Reyna on 06-03-2022 Lymphocytes Auto (Unsp spec) [#/Vol] 1.54 10*3/uL 0.83-4.51 [facility] Basophil percentageOrdered B y: Payam Reyna on 06-03-2022 Basophils/100 WBC (Bld) 0.5 % 0-1 [facility] Bilirubin [Mass/Vol] 0.60 mg/dL 0.20-1.00 [facility] Comment on above: For patients on eltr ombopag therapy, use of Dimension [place] TBIL is not recommended. Chloride [Moles/Vol] 108 mmol/L 98-107 [facility] Eosinophils/100 WBC (Bld) 2.4 % 0-5 [facility] Glucose [Mass/Vol] 86 mg/dL 74-106 [facility] Neutrophils (Bld) [#/Vol] 3.2 10*3/uL 2.0-7.7 [facility] Neutrophils/100 WBC (Bld) 58.6 % 47-70 [facility] Potassium [Moles/Vol] 4.2 mmol/L 3.5-5.1 [facility] Protein [Mass/Vol] 7.2 g/dL 6.4-8.2 [facility] Sodium [Moles/Vol] 141 mmol/L 136-145 [facility] WBC (Bld) [#/Vol] 5.5 10*3/uL 4.4-11.0 [facility] Blood erythrocytes count (nu mber/volume)Ordered By: Payam Reyna on 06-03-2022 RBC (Bld) [#/Vol] 3.73 10*6/uL 4.2-5.4 [facility] Blood hemoglobin measurement (mass/volume)Ordered By: Payam Reyna on 06-03-2022 Hemoglobin (Bld) [Mass/Vol] 13.1 g/dL 12.0-15.0 [facility] Blood lymphocytes/100 leukoc ytesOrdered By: Payam Reyna on 06-03-2022 Lymphocytes/100 WBC (Bld) 27.8 % 19-41 [facility] Blood manual differential co mment interpretation (narrative result)Ordered By: Payam Reyna on 06-03-2022 Manual differential comment [place] (Bld) [Interp] SCANNED [facility] Blood monocytes/100 leukocyt esOrdered By: Payam Reyna on 06-03-2022 Monocytes/100 WBC (Bld) 10.3 % 0-10 [facility] Blood platelet mean volumeOr dered By: Payam Reyna on 06-03-2022 Platelet mean volume (Bld) [Entitic vol] 9.9 fL 6.2-12.0 [facility] Determination of erythrocyte mean corpuscular volume (MCV)Ordered By: Payam Reyna on 06-03-2022 MCV (RBC) [Entitic vol] 102.7 fL 81-99 [facility] Hematocrit Auto (Bld) [Volum e fraction]Ordered By: [facility] Herronalyssa on 06-03-2022 Hematocrit (Bld) [Volume fraction] 38.3 % 37-47 [facility] Laboratory - Chemistry and C hemistry - challengeOrdered By: [facility] Herronalyssa on 06-03-2022 ALP [Catalytic activity/Vol] 98 U/L 45-117 [facility] ALT [Catalytic activity/Vol] 33 U/L 13-56 [facility] CO2 [Moles/Vol] 26.0 mmol/L 21.0-32.0 [facility] Globulin (S) [Mass/Vol] 4.2 g/dL 2.2-4.2 [facility] Urea nitrogen/Creatinine [Mass ratio] 28.5 mg/mg 10-20 [facility] - Hematology and Cell countsOrdered By: Jasbuena vistagarfield Reyna on 06-03-2022 Anisocytosis Ql (Bld) 1+ [facility] Erythrocyte distribution width (RBC) [Entitic vol] 68.7 fL 35.1-43.9 [facility] Erythrocyte distribution width (RBC) [Ratio] 18.0 % 11.6-14.6 [facility] Immature granulocytes/100 WBC (Bld) 0.400 % 0.0-0.9 [facility] Comment on above: IG% - Immature Granu locytes (promyelocytes, myelocytes and metamyelocytes) > 1% indicates that a LEFT SHIFT is Present. MCH (RBC) [Entitic mass] 35.1 pg 27.0-32.0 [facility] Nucleated RBC/100 WBC (Bld) [Ratio] 0 % 0-5 [facility] Auto (RBC) [Mass/Vol]Or dered By: Payam Reyna on 06-03-2022 MCHC (RBC) [Mass/Vol] 34.2 g/dL 32-36 [facility] No Panel InformationOrdered By: Payam Reyna on 06-03-2022 Estimated GFR (MDRD) Amer 123 mL/min >60 [facility] Comment on above: GFR Calc Estimated GFR (MDRD) Non-Af Amer 101 mL/min >60 [facility] Comment on above: Non- GFR Calc Platelets bldOrdered By: Fredy Reyna on 06-03-2022 Platelets (Bld) [#/Vol] 113 10*3/uL 150-450 [facility] Serum or plasma albumin yonatan urement (mass/volume)Ordered By: Payam Reyna on 06-03-2022 Albumin [Mass/Vol] 3.0 g/dL 3.2-5.0 [facility] Serum or plasma albumin/glob ulin mass ratioOrdered By: Payam Reyna on 06-03-2022 Albumin/Globulin [Mass ratio] 0.7 {ratio} 0.9-2.4 [facility] Serum or plasma calcium yonatan urement (mass/volume)Ordered By: Payam Reyna on 06-03-2022 Calcium [Mass/Vol] 9.5 mg/dL 8.5-10.1 [facility] Serum or plasma creatinine m easurement (mass/volume)Ordered By: Payam Reyna on 06-03-2022 Creatinine [Mass/Vol] 0.60 mg/dL 0.55-1.02 [facility] Comment on above: The validity of the calculated GFR & GFRAA in patients over 70 years has not been determined. Clinical correlation is essential. Serum or plasma urea nitroge n measurement (mass/volume)Ordered By: Payam Reyna on 06-03-2022 Urea nitrogen [Mass/Vol] 17 mg/dL 7-18 [facility] Thin prep Papanicolaou smear with manual screeningOrdered By: Payam Reyna on 06-03-2022 Thin prep Papanicolaou smear with manual screening 33 U/L 15-37 [facility] Thin prep Papanicolaou smear with manual screening 7 5-15 [facility] Absolute lymphocyte countOrd ered By: Alejo Salcido on 05-06-2022 Lymphocytes Auto (Unsp spec) [#/Vol] 1.42 10*3/uL 0.83-4.51 [facility] Basophil percentageOrdered B y: Alejo Salcido on 05-06-2022 Basophils/100 WBC (Bld) 0.6 % 0-1 [facility] Bilirubin [Mass/Vol] 0.50 mg/dL 0.20-1.00 [facility] Comment on above: For patients on eltr ombopag therapy, use of Dimension [place] TBIL is not recommended. Chloride [Moles/Vol] 110 mmol/L 98-107 [facility] Eosinophils/100 WBC (Bld) 2.1 % 0-5 [facility] Glucose [Mass/Vol] 84 mg/dL 74-106 [facility] Neutrophils (Bld) [#/Vol] 2.6 10*3/uL 2.0-7.7 [facility] Neutrophils/100 WBC (Bld) 53.7 % 47-70 [facility] Potassium [Moles/Vol] 4.1 mmol/L 3.5-5.1 [facility] Protein [Mass/Vol] 6.9 g/dL 6.4-8.2 [facility] Sodium [Moles/Vol] 142 mmol/L 136-145 [facility] WBC (Bld) [#/Vol] 4.8 10*3/uL 4.4-11.0 [facility] Blood erythrocytes count (nu mber/volume)Ordered By: Alejo Salcido on 05-06-2022 RBC (Bld) [#/Vol] 3.47 10*6/uL 4.2-5.4 [facility] Blood hemoglobin measurement (mass/volume)Ordered By: Alejo Salcido on 05-06-2022 Hemoglobin (Bld) [Mass/Vol] 11.1 g/dL 12.0-15.0 [facility] Blood lymphocytes/100 leukoc ytesOrdered By: Alejo Salcido on 05-06-2022 Lymphocytes/100 WBC (Bld) 29.8 % 19-41 [facility] Blood monocytes/100 leukocyt esOrdered By: Alejo Salcido on 05-06-2022 Monocytes/100 WBC (Bld) 13.4 % 0-10 [facility] Blood platelet mean volumeOr dered By: Alejo Salcido on 05-06-2022 Platelet mean volume (Bld) [Entitic vol] 9.4 fL 6.2-12.0 [facility] Determination of erythrocyte mean corpuscular volume (MCV)Ordered By: Alejo Salcido on 05-06-2022 MCV (RBC) [Entitic vol] 98.3 fL 81-99 [facility] Hematocrit Auto (Bld) [Volum e fraction]Ordered By: Alejo Salcido on 05-06-2022 Hematocrit (Bld) [Volume fraction] 34.1 % 37-47 [facility] Laboratory - Chemistry and C hemistry - challengeOrdered By: Alejo Salcido on 05-06-2022 ALP [Catalytic activity/Vol] 117 U/L 45-117 [facility] ALT [Catalytic activity/Vol] 21 U/L 13-56 [facility] CO2 [Moles/Vol] 26.0 mmol/L 21.0-32.0 [facility] Globulin (S) [Mass/Vol] 4.3 g/dL 2.2-4.2 [facility] Urea nitrogen/Creatinine [Mass ratio] 15.9 mg/mg 10-20 [facility] - Hematology and Cell countsOrdered By: Alejo Saclido on 05-06-2022 Anisocytosis Ql (Bld) 1+ [facility] Erythrocyte distribution width (RBC) [Entitic vol] 81.2 fL 35.1-43.9 [facility] Erythrocyte distribution width (RBC) [Ratio] 23.4 % 11.6-14.6 [facility] Immature granulocytes/100 WBC (Bld) 0.400 % 0.0-0.9 [facility] Comment on above: IG% - Immature Granu locytes (promyelocytes, myelocytes and metamyelocytes) > 1% indicates that a LEFT SHIFT is Present. MCH (RBC) [Entitic mass] 32.0 pg 27.0-32.0 [facility] Nucleated RBC/100 WBC (Bld) [Ratio] 0 % 0-5 [facility] Auto (RBC) [Mass/Vol]Or dered By: Alejo Salcido on 05-06-2022 MCHC (RBC) [Mass/Vol] 32.6 g/dL 32-36 [facility] No Panel InformationOrdered By: Alejo Salcido on 05-06-2022 Estimated GFR (MDRD) Amer 130 mL/min >60 [facility] Comment on above: GFR Calc Estimated GFR (MDRD) Non-Af Amer 108 mL/min >60 [facility] Comment on above: Non- GFR Calc Thyroid Stimulating Hormone (TSH) 1.29 uIU/mL 0.358-3.74 [facility] Platelets bldOrdered By: Levi Salcido on 05-06-2022 Platelets (Bld) [#/Vol] 110 10*3/uL 150-450 [facility] Serum or plasma albumin yonatan urement (mass/volume)Ordered By: Alejo Salcido on 05-06-2022 Albumin [Mass/Vol] 2.6 g/dL 3.2-5.0 [facility] Serum or plasma albumin/glob ulin mass ratioOrdered By: Alejo Salcido on 05-06-2022 Albumin/Globulin [Mass ratio] 0.6 {ratio} 0.9-2.4 [facility] Serum or plasma calcium yonatan urement (mass/volume)Ordered By: Alejo Salcido on 05-06-2022 Calcium [Mass/Vol] 9.1 mg/dL 8.5-10.1 [facility] Serum or plasma creatinine m easurement (mass/volume)Ordered By: Alejo Salcido on 05-06-2022 Creatinine [Mass/Vol] 0.57 mg/dL 0.55-1.02 [facility] Comment on above: The validity of the calculated GFR & GFRAA in patients over 70 years has not been determined. Clinical correlation is essential. Serum or plasma urea nitroge n measurement (mass/volume)Ordered By: Alejo Salcido on 05-06-2022 Urea nitrogen [Mass/Vol] 9 mg/dL 7-18 [facility] Thin prep Papanicolaou smear with manual screeningOrdered By: Alejo Salcido on 05-06-2022 Thin prep Papanicolaou smear with manual screening 26 U/L 15-37 [facility] Thin prep Papanicolaou smear with manual screening 6 5-15 [facility] Absolute lymphocyte countOrd ered By: Payam Reyna on 04-01-2022 Lymphocytes Auto (Unsp spec) [#/Vol] 1.69 10*3/uL 0.83-4.51 [facility] Basophil percentageOrdered B y: Payam Reyna on 04-01-2022 Basophils/100 WBC (Bld) 0.6 % 0-1 [facility] Bilirubin [Mass/Vol] 0.50 mg/dL 0.20-1.00 [facility] Comment on above: For patients on eltr ombopag therapy, use of Dimension [place] TBIL is not recommended. Chloride [Moles/Vol] 110 mmol/L 98-107 [facility] Eosinophils/100 WBC (Bld) 1.8 % 0-5 [facility] Glucose [Mass/Vol] 81 mg/dL 74-106 [facility] Neutrophils (Bld) [#/Vol] 2.7 10*3/uL 2.0-7.7 [facility] Neutrophils/100 WBC (Bld) 53.0 % 47-70 [facility] Potassium [Moles/Vol] 4.0 mmol/L 3.5-5.1 [facility] Protein [Mass/Vol] 6.9 g/dL 6.4-8.2 [facility] Sodium [Moles/Vol] 145 mmol/L 136-145 [facility] WBC (Bld) [#/Vol] 5.1 10*3/uL 4.4-11.0 [facility] Blood erythrocytes count (nu mber/volume)Ordered By: Payam Reyna on 04-01-2022 RBC (Bld) [#/Vol] 3.56 10*6/uL 4.2-5.4 [facility] Blood hemoglobin measurement (mass/volume)Ordered By: Payam Reyna on 04-01-2022 Hemoglobin (Bld) [Mass/Vol] 10.5 g/dL 12.0-15.0 [facility] Blood lymphocytes/100 leukoc ytesOrdered By: Payam Reyna on 04-01-2022 Lymphocytes/100 WBC (Bld) 33.2 % 19-41 [facility] Blood monocytes/100 leukocyt esOrdered By: Payam Reyna on 04-01-2022 Monocytes/100 WBC (Bld) 11.2 % 0-10 [facility] Blood platelet mean volumeOr dered By: Payam Reyna on 04-01-2022 Platelet mean volume (Bld) [Entitic vol] 10.3 fL 6.2-12.0 [facility] Determination of erythrocyte mean corpuscular volume (MCV)Ordered By: Jasbuena vistagarfield Reyna on 04-01-2022 MCV (RBC) [Entitic vol] 92.7 fL 81-99 [facility] Hematocrit Auto (Bld) [Volum e fraction]Ordered By: [facility] on 04-01-2022 Hematocrit (Bld) [Volume fraction] 33.0 % 37-47 [facility] Laboratory - Chemistry and C hemistry - challengeOrdered By: [facility] Herronalyssa on 04-01-2022 ALP [Catalytic activity/Vol] 75 U/L 45-117 [facility] ALT [Catalytic activity/Vol] 21 U/L 13-56 [facility] CO2 [Moles/Vol] 25.0 mmol/L 21.0-32.0 [facility] Globulin (S) [Mass/Vol] 4.3 g/dL 2.2-4.2 [facility] Urea nitrogen/Creatinine [Mass ratio] 18.4 mg/mg 10-20 [facility] - Hematology and Cell countsOrdered By: Payam Reyna on 04-01-2022 Anisocytosis Ql (Bld) RARE [facility] Erythrocyte distribution width (RBC) [Entitic vol] 73.0 fL 35.1-43.9 [facility] Erythrocyte distribution width (RBC) [Ratio] 22.1 % 11.6-14.6 [facility] Immature granulocytes/100 WBC (Bld) 0.200 % 0.0-0.9 [facility] Comment on above: IG% - Immature Granu locytes (promyelocytes, myelocytes and metamyelocytes) > 1% indicates that a LEFT SHIFT is Present. MCH (RBC) [Entitic mass] 29.5 pg 27.0-32.0 [facility] Nucleated RBC/100 W[facility] (Bld) [Ratio] 0 % 0[facility] ([facility] [Mass/Vol]Or dered By: Payam Reyna on 04-01-2022 MCHC (RBC) [Mass/Vol] 31.8 g/dL 32-36 [facility] No Panel InformationOrdered By: Payam Reyna on 04-01-2022 Estimated GFR (MDRD) Amer 101 mL/min >60 [facility] Comment on above: GFR Calc Estimated GFR (MDRD) Non-Af Amer 83 mL/min >60 [facility] Comment on above: Non- GFR Calc Platelets bldOrdered By: Fredy Reyna on 04-01-2022 Platelets (Bld) [#/Vol] 127 10*3/uL 150-450 [facility] Serum or plasma albumin yonatan urement (mass/volume)Ordered By: Payam Reyna on 04-01-2022 Albumin [Mass/Vol] 2.6 g/dL 3.2-5.0 [facility] Serum or plasma albumin/glob ulin mass ratioOrdered By: Payam Reyna on 04-01-2022 Albumin/Globulin [Mass ratio] 0.6 {ratio} 0.9-2.4 [facility] Serum or plasma calcium yonatan urement (mass/volume)Ordered By: Payam Reyna on 04-01-2022 Calcium [Mass/Vol] 9.1 mg/dL 8.5-10.1 [facility] Serum or plasma creatinine m easurement (mass/volume)Ordered By: Payam Reyna on 04-01-2022 Creatinine [Mass/Vol] 0.71 mg/dL 0.55-1.02 [facility] Comment on above: The validity of the calculated GFR & GFRAA in patients over 70 years has not been determined. Clinical correlation is essential. Serum or plasma urea nitroge n measurement (mass/volume)Ordered By: Payam Reyna on 04-01-2022 Urea nitrogen [Mass/Vol] 13 mg/dL 7-18 [facility] Thin prep Papanicolaou smear with manual screeningOrdered By: Payam Reyna on 04-01-2022 Thin prep Papanicolaou smear with manual screening 24 U/L 15-37 [facility] Thin prep Papanicolaou smear with manual screening 10 5-15 [facility] CBC W Ordered Manual Differe ntial panel (Bld)on 03-22-2022 Basophils (Bld) [#/Vol] 0.05 10*3/uL <0.11 k/uL [facility] Basophils/100 WBC (Bld) 0.8 % [facility] Eosinophils (Bld) [#/Vol] 0.09 10*3/uL <0.46 k/uL [facility] Eosinophils/100 WBC (Bld) 1.4 % [facility] Erythrocyte distribution width (RBC) [Ratio] 20.3 % High 11.5 - 15.0 % [facility] Hematocrit (Bld) [Volume fraction] 33.9 % Low 36.0 - 46.0 % [facility] Hemoglobin (Bld) [Mass/Vol] 10.8 g/dL Low 11.5 - 15.5 g/dL [facility] Immature granulocytes (Bld) [#/Vol] <0.10 k/uL [facility] Immature granulocytes/100 WBC (Bld) 0.3 % [facility] Lymphocytes (Bld) [#/Vol] 1.43 10*3/uL 1.00 - 4.00 k/uL [facility] Lymphocytes/100 WBC (Bld) 22.8 % [facility] MCH (RBC) [Entitic mass] 27.6 pg 26.0 - 34.0 pg [facility] MCHC (RBC) [Mass/Vol] 31.9 g/dL 30.5 - 36.0 g/dL [facility] MCV (RBC) [Entitic vol] 86.7 fL 80.0 - 100.0 fL [facility] Monocytes (Bld) [#/Vol] 0.85 10*3/uL <0.87 k/uL [facility] Monocytes/100 WBC (Bld) 13.6 % [facility] Neutrophils (Bld) [#/Vol] 3.83 10*3/uL 1.45 - 7.50 k/uL [facility] Neutrophils/100 WBC (Bld) 61.1 % [facility] Platelet mean volume (Bld) [Entitic vol] 9.7 fL 9.0 - 12.7 fL [facility] Platelets (Bld) [#/Vol] 136 10*3/uL Low 150 - 400 k/uL [facility] RBC (Bld) [#/Vol] 3.91 10*6/uL 3.90 - 5.2 0 m/uL [facility] WBC (Bld) [#/Vol] 6.27 10*3/uL 3.70 - 11.00 k/uL [facility] Transferrin receptor.soluble [Mass/Vol]on 03-15-2022 Transferrin receptor.soluble [Moles/Vol] 8.7 mg/L High 1.9 - 4.4 mg/L [facility] Comprehensive metabolic 2000 panelon 03-14-2022 Albumin [Mass/Vol] 3.6 g/dL Low 3.9 - 4.9 g/dL [facility] ALP [Catalytic activity/Vol] 100 U/L 34 - 123 U/L [facility] ALT [Catalytic activity/Vol] 14 U/L 7 - 38 U/L [facility] Anion gap [Moles/Vol] 9 mmol/L 9 - 18 mmol/L [facility] AST [Catalytic activity/Vol] 27 U/L 13 - 35 U/L [facility] Bilirubin [Mass/Vol] 0.6 mg/dL 0.2 - 1 .3 mg/dL [facility] Calcium [Mass/Vol] 9.4 mg/dL 8.5 - 10. 2 mg/dL [facility] Chloride [Moles/Vol] 104 mmol/L 97 - 10 5 mmol/L [facility] CO2 [Moles/Vol] 24 mmol/L 22 - 30 mmol/L [facility] Creatinine [Mass/Vol] 0.63 mg/dL 0.58 - 0.96 mg/dL [facility] Estimated Glomerular Filtration Rate 87 mL/min/1.73m >=60 mL/min/1.73 m [facility] Glucose [Mass/Vol] 120 mg/dL High 74 - 99 mg/dL [facility] Potassium [Moles/Vol] 3.9 mmol/L 3.7 - 5.1 mmol/L [facility] Protein [Mass/Vol] 7.3 g/dL 6.3 - 8.0 g/dL [facility] Sodium [Moles/Vol] 137 mmol/L 136 - 144 mmol/L [facility] Urea nitrogen [Mass/Vol] 14 mg/dL 7 - 21 mg/dL [facility] Iron and Iron binding capaci ty panelon 03-14-2022 Iron [Mass/Vol] 249 ug/dL High 41 - 186 ug/dL [facility] Iron binding capacity [Mass/Vol] 383 ug/dL 232 - 386 ug/dL [facility] Iron/TIBC [Molar ratio] 65.0 % High 15.0 - 57.0 % [facility] Laboratory - Chemistry and C hemistry - challengeon 03-14-2022 Ferritin [Mass/Vol] 45.9 ng/mL 14.7 - 205.1 ng/mL [facility] LDH [Catalytic activity/Vol] 194 U/L 135 - 214 U/L [facility] Laboratory - Hematology and Cell countson 03-14-2022 Reticulocytes (Bld) [#/Vol] 0.35363 10*3/uL 0.018 - 0.100 M/uL [facility] Reticulocytes (Bld) [#/Vol]o n 03-14-2022 Reticulocytes/100 RBC (Bld) 1.3 % 0.4 - 2.0 % [facility] Absolute lymphocyte countOrd ered By: [facility] on 03-07-2022 Lymphocytes Auto (Unsp spec) [#/Vol] 1.39 10*3/uL 0.83-4.51 [facility] Basophil percentageOrdered B y: [facility] on 03-07-2022 Basophils/100 WBC (Bld) 1.0 % 0-1 [facility] Eosinophils/100 WBC (Bld) 2.0 % 0-5 [facility] Neutrophils (Bld) [#/Vol] 2.0 10*3/uL 2.0-7.7 [facility] Neutrophils/100 WBC (Bld) 48.5 % 47-70 [facility] WBC (Bld) [#/Vol] 4.1 10*3/uL 4.4-11.[facility] count (nu mber/volume)Ordered By: [facility] on 03-07-2022 RBC (Bld) [#/Vol] 3.93 10*6/uL 4.2-5.4 [facility] Blood hemoglobin measurement (mass/volume)Ordered By: [facility] on 03-07-2022 Hemoglobin (Bld) [Mass/Vol] 10.8 g/dL 12.0-15.0 [facility] Blood lymphocytes/100 leukoc ytesOrdered By: [facility] on 03-07-2022 Lymphocytes/100 WBC (Bld) 34.1 % 19-41 [facility] Blood monocytes/100 leukocyt esOrdered By: [facility] on 03-07-2022 Monocytes/100 WBC (Bld) 14.2 % 0-10 [facility] Blood platelet mean volumeOr dered By: [facility] on 03-07-2022 Platelet mean volume (Bld) [Entitic vol] 9.7 fL 6.2-12.0 [facility] Determination of erythrocyte mean corpuscular volume (MCV)Ordered By: [facility] on 03-07-2022 MCV (RBC) [Entitic vol] 84.5 fL 81-99 [facility] Hematocrit Auto (Bld) [Volum e fraction]Ordered By: [facility] on 03-07-2022 Hematocrit (Bld) [Volume fraction] 33.2 % 37-47 [facility] Laboratory - Hematology and Cell countsOrdered By: [facility] on 03-07-2022 Erythrocyte distribution width (RBC) [Entitic vol] 50.5 fL 35.1-43.9 [facility] Erythrocyte distribution width (RBC) [Ratio] 16.3 % 11.6-14.6 [facility] Immature granulocytes/100 WBC (Bld) 0.200 % 0.0-0.9 [facility] Comment on above: IG% - Immature Granu locytes (promyelocytes, myelocytes and metamyelocytes) > 1% indicates that a LEFT SHIFT is Present. MCH (RBC) [Entitic mass] 27.5 pg 27.0-32.0 [facility] Nucleated RBC/100 WBC (Bld) [Ratio] 0 % 0-5 [facility] MCHC Auto (RBC) [Mass/Vol]Or dered By: [facility] on 03-07-2022 MCHC (RBC) [Mass/Vol] 32.5 g/dL 32-36 [facility] Comment on above: Delta: 30.2 on 12/19 /22-0443 Platelets bldOrdered By: [facility] on 03-07-2022 Platelets (Bld) [#/Vol] 155 10*3/uL 150-450 [facility] Absolute lymphocyte countOrd ered By: Alejo Omari on 03-04-2022 Lymphocytes Auto (Unsp spec) [#/Vol] 1.30 10*3/uL 0.83-4.51 [facility] Basophil percentageOrdered B y: Alejo Salcido on 03-04-2022 Basophils/100 WBC (Bld) 0.5 % 0-1 [facility] Bilirubin [Mass/Vol] 0.50 mg/dL 0.20-1.00 [facility] Comment on above: For patients on eltr ombopag therapy, use of Dimension [place] TBIL is not recommended. Chloride [Moles/Vol] 113 mmol/L 98-107 [facility] Eosinophils/100 WBC (Bld) 2.8 % 0-5 [facility] Glucose [Mass/Vol] 90 mg/dL 74-106 [facility] Neutrophils (Bld) [#/Vol] 2.1 10*3/uL 2.0-7.7 [facility] Neutrophils/100 WBC (Bld) 51.4 % 47-70 [facility] Potassium [Moles/Vol] 4.4 mmol/L 3.5-5.1 [facility] Protein [Mass/Vol] 7.2 g/dL 6.4-8.2 [facility] Sodium [Moles/Vol] 143 mmol/L 136-145 [facility] WBC (Bld) [#/Vol] 4.0 10*3/uL 4.4-11.0 [facility] Blood erythrocytes count (nu mber/volume)Ordered By: Alejo Salcido on 03-04-2022 RBC (Bld) [#/Vol] 2.94 10*6/uL 4.2-5.4 [facility] Blood hemoglobin measurement (mass/volume)Ordered By: Alejo Salcido on 03-04-2022 Hemoglobin (Bld) [Mass/Vol] 7.7 g/dL 12.0-15.0 [facility] Blood lymphocytes/100 leukoc ytesOrdered By: Alejo Salcido on 03-04-2022 Lymphocytes/100 WBC (Bld) 32.5 % 19-41 [facility] Blood monocytes/100 leukocyt esOrdered By: Alejo Salcido on 03-04-2022 Monocytes/100 WBC (Bld) 12.8 % 0-10 [facility] Blood platelet mean volumeOr dered By: Alejo Salcido on 03-04-2022 Platelet mean volume (Bld) [Entitic vol] 11.0 fL 6.2-12.0 [facility] Determination of erythrocyte mean corpuscular volume (MCV)Ordered By: Alejo Salcido on 03-04-2022 MCV (RBC) [Entitic vol] 86.7 fL 81-99 [facility] Hematocrit Auto (Bld) [Volum e fraction]Ordered By: Alejo Salcido on 03-04-2022 Hematocrit (Bld) [Volume fraction] 25.5 % 37-47 [facility] Laboratory - Chemistry and C hemistry - challengeOrdered By: Alejo Salcido on 03-04-2022 ALP [Catalytic activity/Vol] 87 U/L 45-117 [facility] ALT [Catalytic activity/Vol] 19 U/L 13-56 [facility] CO2 [Moles/Vol] 25.0 mmol/L 21.0-32.0 [facility] Globulin (S) [Mass/Vol] 4.5 g/dL 2.2-4.2 [facility] Urea nitrogen/Creatinine [Mass ratio] 18.4 mg/mg 10-20 [facility] Laboratory - Hematology and Cell countsOrdered By: Alejo Salcido on 03-04-2022 Erythrocyte distribution width (RBC) [Entitic vol] 53.1 fL 35.1-43.9 [facility] Erythrocyte distribution width (RBC) [Ratio] 17.1 % 11.6-14.6 [facility] Immature granulocytes/100 WBC (Bld) 0.000 % 0.0-0.9 [facility] Comment on above: IG% - Immature Granu locytes (promyelocytes, myelocytes and metamyelocytes) > 1% indicates that a LEFT SHIFT is Present. MCH (RBC) [Entitic mass] 26.2 pg 27.0-32.0 [facility] Nucleated RBC/100 WBC (Bld) [Ratio] 0 % 0-5 [facility] MCHC Auto (RBC) [Mass/Vol]Or dered By: Alejo Salcido on 03-04-2022 MCHC (RBC) [Mass/Vol] 30.2 g/dL 32-36 [facility] No Panel InformationOrdered By: Alejo Salcido on 03-04-2022 Estimated GFR (MDRD) Amer 101 mL/min >60 [facility] Comment on above: GFR Calc Estimated GFR (MDRD) Non-Af Amer 83 mL/min >60 [facility] Comment on above: Non- GFR Calc Platelets bldOrdered By: Levi Salcido on 03-04-2022 Platelets (Bld) [#/Vol] 163 10*3/uL 150-450 [facility] Serum or plasma albumin yonatan urement (mass/volume)Ordered By: Alejo Salcido on 03-04-2022 Albumin [Mass/Vol] 2.7 g/dL 3.2-5.0 [facility] Serum or plasma albumin/glob ulin mass ratioOrdered By: Alejo Salcido on 03-04-2022 Albumin/Globulin [Mass ratio] 0.6 {ratio} 0.9-2.4 [facility] Serum or plasma calcium yonatan urement (mass/volume)Ordered By: Alejo Salcido on 03-04-2022 Calcium [Mass/Vol] 9.1 mg/dL 8.5-10.1 [facility] Serum or plasma creatinine m easurement (mass/volume)Ordered By: Alejo Salcido on 03-04-2022 Creatinine [Mass/Vol] 0.71 mg/dL 0.55-1.02 [facility] Comment on above: The validity of the calculated GFR & GFRAA in patients over 70 years has not been determined. Clinical correlation is essential. Serum or plasma urea nitroge n measurement (mass/volume)Ordered By: Alejo Salcido on 03-04-2022 Urea nitrogen [Mass/Vol] 13 mg/dL 7-18 [facility] Thin prep Papanicolaou smear with manual screeningOrdered By: Alejo Salcido on 03-04-2022 Thin prep Papanicolaou smear with manual screening 22 U/L 15-37 [facility] Thin prep Papanicolaou smear with manual screening 5 5-15 [facility] Culture, urineOrdered By: Angelito Reyna on 02-23-2022 Bacteria identified Cx Nom (U) Culture exhibits no growth. [facility] Bilirubin Test strip Ql (U)O rdered By: Payam Reyna on 02-21-2022 Bilirubin Ql (U) Negative Negative [facility] Ketones Test strip Ql (U)Ord ered By: Payam Reyna on 02-21-2022 Ketones Ql (U) 5 mg/dl Negative [facility] Nitrite Test strip Ql (U)Ord ered By: Payam Reyna on 02-21-2022 Nitrite Ql (U) Negative Negative [facility] Protein Test strip Ql (U)Ord ered By: Payam Reyna on 02-21-2022 Protein Ql (U) 30 mg/dl Negative [facility] Urine blood detectionOrdered By: Payam Reyna on 02-21-2022 RBC Ql (U) 250 /ul Negative [facility] Urine clarityOrdered By: Fredy Reyna on 02-21-2022 Clarity (U) Cloudy Clear [facility] Urine color determinationOrd ered By: Payam Reyna on 02-21-2022 Color (U) Starla Yellow [facility] Urine glucose detectionOrder ed By: Payam Reyna on 02-21-2022 Glucose Ql (U) Normal mg/dl Normal [facility] Urine leukocyte esterase det ection by dipstickOrdered By: Payam Reyna on 02-21-2022 Leukocyte esterase Test strip Ql (U) 25 /ul Negative [facility] Urine pHOrdered By: Deloris Reyna on 02-21-2022 pH (U) 6.0 [pH] 5.0 - 8.0 [facility] Urine specific gravity measu rementOrdered By: Payam Reyna on 02-21-2022 Specific gravity (U) [Rel density] 1.015 1.002-1.030 [facility] Urobilinogen Auto test strip Ql (U)Ordered By: Payam Reyna on 02-21-2022 Urobilinogen Ql (U) Normal mg/dl Normal [facility] Absolute lymphocyte countOrd ered By: Alejo Salcido on 02-04-2022 Lymphocytes Auto (Unsp spec) [#/Vol] 1.51 10*3/uL 0.83-4.51 [facility] Basophil percentageOrdered B y: Alejo Salcido on 02-04-2022 Basophils/100 WBC (Bld) 1.0 % 0-1 [facility] Bilirubin [Mass/Vol] 0.50 mg/dL 0.20-1.00 [facility] Comment on above: For patients on eltr ombopag therapy, use of Dimension [place] TBIL is not recommended. Chloride [Moles/Vol] 111 mmol/L 98-107 [facility] Eosinophils/100 WBC (Bld) 2.5 % 0-5 [facility] Glucose [Mass/Vol] 79 mg/dL 74-106 [facility] Neutrophils (Bld) [#/Vol] 2.9 10*3/uL 2.0-7.7 [facility] Neutrophils/100 WBC (Bld) 55.7 % 47-70 [facility] Potassium [Moles/Vol] 4.1 mmol/L 3.5-5.1 [facility] Protein [Mass/Vol] 7.2 g/dL 6.4-8.2 [facility] Sodium [Moles/Vol] 140 mmol/L 136-145 [facility] WBC (Bld) [#/Vol] 5.2 10*3/uL 4.4-11.0 [facility] Blood erythrocytes count (nu mber/volume)Ordered By: Alejo Salcido on 02-04-2022 RBC (Bld) [#/Vol] 3.06 10*6/uL 4.2-5.4 [facility] Blood hemoglobin measurement (mass/volume)Ordered By: Alejo Salcido on 02-04-2022 Hemoglobin (Bld) [Mass/Vol] 8.3 g/dL 12.0-15.0 [facility] Blood lymphocytes/100 leukoc ytesOrdered By: Alejo Salcido on 02-04-2022 Lymphocytes/100 WBC (Bld) 29.2 % 19-41 [facility] Blood monocytes/100 leukocyt esOrdered By: Alejo Salcido on 02-04-2022 Monocytes/100 WBC (Bld) 11.2 % 0-10 [facility] Blood platelet mean volumeOr dered By: Alejo Salcido on 02-04-2022 Platelet mean volume (Bld) [Entitic vol] 9.5 fL 6.2-12.0 [facility] Determination of erythrocyte mean corpuscular volume (MCV)Ordered By: Alejo Salcido on 02-04-2022 MCV (RBC) [Entitic vol] 87.3 fL 81-99 [facility] Hematocrit Auto (Bld) [Volum e fraction]Ordered By: Alejo Salcido on 02-04-2022 Hematocrit (Bld) [Volume fraction] 26.7 % 37-47 [facility] Laboratory - Chemistry and C hemistry - challengeOrdered By: Alejo Salcido on 02-04-2022 ALP [Catalytic activity/Vol] 87 U/L 45-117 [facility] ALT [Catalytic activity/Vol] 20 U/L 13-56 [facility] CO2 [Moles/Vol] 25.0 mmol/L 21.0-32.0 [facility] Globulin (S) [Mass/Vol] 4.5 g/dL 2.2-4.2 [facility] Urea nitrogen/Creatinine [Mass ratio] 20.9 mg/mg 10-20 [facility] Laboratory - Hematology and Cell countsOrdered By: Alejo Salcido on 02-04-2022 Erythrocyte distribution width (RBC) [Entitic vol] 54.0 fL 35.1-43.9 [facility] Erythrocyte distribution width (RBC) [Ratio] 17.1 % 11.6-14.6 [facility] Immature granulocytes/100 WBC (Bld) 0.400 % 0.0-0.9 [facility] Comment on above: IG% - Immature Granu locytes (promyelocytes, myelocytes and metamyelocytes) > 1% indicates that a LEFT SHIFT is Present. MCH (RBC) [Entitic mass] 27.1 pg 27.0-32.0 [facility] Nucleated RBC/100 WBC (Bld) [Ratio] 0 % 0-5 [facility] MCHC Auto (RBC) [Mass/Vol]Or dered By: Alejo Salcido on 02-04-2022 MCHC (RBC) [Mass/Vol] 31.1 g/dL 32-36 [facility] No Panel InformationOrdered By: Alejo Salcido on 02-04-2022 Estimated GFR (MDRD) Amer 107 mL/min >60 [facility] Comment on above: GFR Calc Estimated GFR (MDRD) Non-Af Amer 89 mL/min >60 [facility] Comment on above: Non- GFR Calc Platelets bldOrdered By: Levi Salcido on 02-04-2022 Platelets (Bld) [#/Vol] 155 10*3/uL 150-450 [facility] Serum or plasma albumin yonatan urement (mass/volume)Ordered By: Alejo Salcido on 02-04-2022 Albumin [Mass/Vol] 2.7 g/dL 3.2-5.0 [facility] Serum or plasma albumin/glob ulin mass ratioOrdered By: Alejo Salcido on 02-04-2022 Albumin/Globulin [Mass ratio] 0.6 {ratio} 0.9-2.4 [facility] Serum or plasma calcium yonatan urement (mass/volume)Ordered By: Alejo Salcido on 02-04-2022 Calcium [Mass/Vol] 8.9 mg/dL 8.5-10.1 [facility] Serum or plasma creatinine m easurement (mass/volume)Ordered By: Alejo Salcido on 02-04-2022 Creatinine [Mass/Vol] 0.67 mg/dL 0.55-1.02 [facility] Comment on above: The validity of the calculated GFR & GFRAA in patients over 70 years has not been determined. Clinical correlation is essential. Serum or plasma urea nitroge n measurement (mass/volume)Ordered By: Alejo Salcido on 02-04-2022 Urea nitrogen [Mass/Vol] 14 mg/dL 7-18 [facility] Thin prep Papanicolaou smear with manual screeningOrdered By: Alejo Salcido on 02-04-2022 Thin prep Papanicolaou smear with manual screening 20 U/L 15-37 [facility] Thin prep Papanicolaou smear with manual screening 4 5-15 [facility] Absolute lymphocyte countOrd ered By: Alejo Salcido on 01-17-2022 Lymphocytes Auto (Unsp spec) [#/Vol] 1.45 10*3/uL 0.83-4.51 [facility] Basophil percentageOrdered B y: Alejo Salcido on 01-17-2022 Basophils/100 WBC (Bld) 0.8 % 0-1 [facility] Eosinophils/100 WBC (Bld) 1.9 % 0-5 [facility] Neutrophils (Bld) [#/Vol] 3.0 10*3/uL 2.0-7.7 [facility] Neutrophils/100 WBC (Bld) 56.3 % 47-70 [facility] WBC (Bld) [#/Vol] 5.3 10*3/uL 4.4-11.0 [facility] Blood erythrocytes count (nu mber/volume)Ordered By: Alejo Salcido on 01-17-2022 RBC (Bld) [#/Vol] 2.79 10*6/uL 4.2-5.4 [facility] Blood hemoglobin measurement (mass/volume)Ordered By: Alejo Salcido on 01-17-2022 Hemoglobin (Bld) [Mass/Vol] 8.0 g/dL 12.0-15.0 [facility] Blood lymphocytes/100 leukoc ytesOrdered By: Alejo Salcido on 01-17-2022 Lymphocytes/100 WBC (Bld) 27.4 % 19-41 [facility] Blood monocytes/100 leukocyt esOrdered By: Alejo Salcido on 01-17-2022 Monocytes/100 WBC (Bld) 13.4 % 0-10 [facility] Blood platelet mean volumeOr dered By: Alejo Salcido on 01-17-2022 Platelet mean volume (Bld) [Entitic vol] 9.9 fL 6.2-12.0 [facility] Determination of erythrocyte mean corpuscular volume (MCV)Ordered By: Alejo Salcido on 01-17-2022 MCV (RBC) [Entitic vol] 88.9 fL 81-99 [facility] Hematocrit Auto (Bld) [Volum e fraction]Ordered By: Alejo Salcido on 01-17-2022 Hematocrit (Bld) [Volume fraction] 24.8 % 37-47 [facility] Laboratory - Hematology and Cell countsOrdered By: Alejo Salcido on 01-17-2022 Erythrocyte distribution width (RBC) [Entitic vol] 58.2 fL 35.1-43.9 [facility] Erythrocyte distribution width (RBC) [Ratio] 18.2 % 11.6-14.6 [facility] Immature granulocytes/100 WBC (Bld) 0.200 % 0.0-0.9 [facility] Comment on above: IG% - Immature Granu locytes (promyelocytes, myelocytes and metamyelocytes) > 1% indicates that a LEFT SHIFT is Present. MCH (RBC) [Entitic mass] 28.7 pg 27.0-32.0 [facility] Nucleated RBC/100 WBC (Bld) [Ratio] 0 % 0-5 [facility] MCHC Auto (RBC) [Mass/Vol]Or dered By: Alejo Salcido on 01-17-2022 MCHC (RBC) [Mass/Vol] 32.3 g/dL 32-36 [facility] Platelets bldOrdered By: Levi Salcido on 01-17-2022 Platelets (Bld) [#/Vol] 169 10*3/uL 150-450 [facility] Absolute lymphocyte countOrd ered By: Alejo Slacido on 01-03-2022 Lymphocytes Auto (Unsp spec) [#/Vol] 1.25 10*3/uL 0.83-4.51 [facility] Basophil percentageOrdered B y: Alejo Salcido on 01-03-2022 Basophils/100 WBC (Bld) 0.5 % 0-1 [facility] Eosinophils/100 WBC (Bld) 2.1 % 0-5 [facility] Neutrophils (Bld) [#/Vol] 2.5 10*3/uL 2.0-7.7 [facility] Neutrophils/100 WBC (Bld) 57.2 % 47-70 [facility] WBC (Bld) [#/Vol] 4.4 10*3/uL 4.4-11.0 [facility] Blood erythrocytes count (nu mber/volume)Ordered By: Alejo Salcido on 01-03-2022 RBC (Bld) [#/Vol] 2.97 10*6/uL 4.2-5.4 [facility] Blood hemoglobin measurement (mass/volume)Ordered By: Alejo Salcido on 01-03-2022 Hemoglobin (Bld) [Mass/Vol] 8.3 g/dL 12.0-15.0 [facility] Blood lymphocytes/100 leukoc ytesOrdered By: Alejo Salcido on 01-03-2022 Lymphocytes/100 WBC (Bld) 28.6 % 19-41 [facility] Blood monocytes/100 leukocyt esOrdered By: Alejo Salcido on 01-03-2022 Monocytes/100 WBC (Bld) 11.4 % 0-10 [facility] Blood platelet mean volumeOr dered By: Alejo Salcido on 01-03-2022 Platelet mean volume (Bld) [Entitic vol] 10.0 fL 6.2-12.0 [facility] Determination of erythrocyte mean corpuscular volume (MCV)Ordered By: Alejo Salcido on 01-03-2022 MCV (RBC) [Entitic vol] 86.5 fL 81-99 [facility] Hematocrit Auto (Bld) [Volum e fraction]Ordered By: Alejo Salcido on 01-03-2022 Hematocrit (Bld) [Volume fraction] 25.7 % 37-47 [facility] Laboratory - Hematology and Cell countsOrdered By: Alejo Salcido on 01-03-2022 Erythrocyte distribution width (RBC) [Entitic vol] 59.0 fL 35.1-43.9 [facility] Erythrocyte distribution width (RBC) [Ratio] 18.8 % 11.6-14.6 [facility] Immature granulocytes/100 WBC (Bld) 0.200 % 0.0-0.9 [facility] Comment on above: IG% - Immature Granu locytes (promyelocytes, myelocytes and metamyelocytes) > 1% indicates that a LEFT SHIFT is Present. 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 #:[id number] (more content not included)... Normal [facility] UA DIP, URINE (POC)on 2021 BILIRUBIN UA (POCT) Negative Negative [facility] CLARITY UA (POCT) Clear [facility] COLOR UA (POCT) Yellow [facility] GLUCOSE UA (POCT) Negative Negative mg/dL [facility] HEMOGLOBIN/BLOOD UA (POCT) Negative Negative [facility] KETONE UA (POCT) Negative Negative mg/dL [facility] LEUKOCYTES UA (POCT) Negative Negative [facility] NITRITE UA (POCT) Negative Negative [facility] PH UA (POCT) 6.5 4.5 - 8.0 [facility] Protein Ql (U) Negative Negative mg/dL [facility] SPECIFIC GRAVITY UA (POCT) 1.010 1.005 - 1.030 [facility] UROBILINOGEN UA (POCT) 0.2 E.U./dL [facility] E.U./dL [facility] Absolute lymphocyte countOrd ered By: Alejo Salcido on 12-31-2021 Lymphocytes Auto (Unsp spec) [#/Vol] 1.26 10*3/uL 0.83-4.51 [facility] Basophil percentageOrdered B y: Alejo Salcido on 12-31-2021 Basophils/100 WBC (Bld) 0.3 % 0-1 [facility] Bilirubin [Mass/Vol] 0.50 mg/dL 0.20-1.00 [facility] Comment on above: For patients on eltr ombopag therapy, use of Dimension [place] TBIL is not recommended. Chloride [Moles/Vol] 113 mmol/L 98-107 [facility] Eosinophils/100 WBC (Bld) 1.6 % 0-5 [facility] Glucose [Mass/Vol] 93 mg/dL 74-106 [facility] Neutrophils (Bld) [#/Vol] 1.8 10*3/uL 2.0-7.7 [facility] Neutrophils/100 WBC (Bld) 49.5 % 47-70 [facility] Potassium [Moles/Vol] 4.3 mmol/L 3.5-5.1 [facility] Protein [Mass/Vol] 6.2 g/dL 6.4-8.2 [facility] Sodium [Moles/Vol] 144 mmol/L 136-145 [facility] WBC (Bld) [#/Vol] 3.6 10*3/uL 4.4-11.0 [facility] Blood erythrocytes count (nu mber/volume)Ordered By: Alejo Salcido on 12-31-2021 RBC (Bld) [#/Vol] 2.73 10*6/uL 4.2-5.4 [facility] Blood hemoglobin measurement (mass/volume)Ordered By: Alejo Salcido on 12-31-2021 Hemoglobin (Bld) [Mass/Vol] 7.5 g/dL 12.0-15.0 [facility] Blood lymphocytes/100 leukoc ytesOrdered By: Alejo Salcido on 12-31-2021 Lymphocytes/100 WBC (Bld) 34.6 % 19-41 [facility] Blood monocytes/100 leukocyt esOrdered By: Alejo Salcido on 12-31-2021 Monocytes/100 WBC (Bld) 13.7 % 0-10 [facility] Blood platelet mean volumeOr dered By: Alejo Salcido on 12-31-2021 Platelet mean volume (Bld) [Entitic vol] 10.4 fL 6.2-12.0 [facility] Determination of erythrocyte mean corpuscular volume (MCV)Ordered By: Alejo Salcido on 12-31-2021 MCV (RBC) [Entitic vol] 88.3 fL 81-99 [facility] Hematocrit Auto (Bld) [Volum e fraction]Ordered By: Alejo Salcido on 12-31-2021 Hematocrit (Bld) [Volume fraction] 24.1 % 37-47 [facility] Laboratory - Chemistry and C hemistry - challengeOrdered By: Alejo Salcido on 12-31-2021 ALP [Catalytic activity/Vol] 75 U/L 45-117 [facility] ALT [Catalytic activity/Vol] 25 U/L 13-56 [facility] CO2 [Moles/Vol] 22.0 mmol/L 21.0-32.0 [facility] Globulin (S) [Mass/Vol] 3.9 g/dL 2.2-4.2 [facility] Urea nitrogen/Creatinine [Mass ratio] 13.7 mg/mg 10-20 [facility] Laboratory - Hematology and Cell countsOrdered By: Alejo Salcido on 12-31-2021 Erythrocyte distribution width (RBC) [Entitic vol] 61.0 fL 35.1-43.9 [facility] Erythrocyte distribution width (RBC) [Ratio] 19.1 % 11.6-14.6 [facility] Immature granulocytes/100 WBC (Bld) 0.300 % 0.0-0.9 [facility] Comment on above: IG% - Immature Granu locytes (promyelocytes, myelocytes and metamyelocytes) > 1% indicates that a LEFT SHIFT is Present. MCH (RBC) [Entitic mass] 27.5 pg 27.0-32.0 [facility] Nucleated RBC/100 WBC (Bld) [Ratio] 0 % 0-5 [facility] MCHC Auto (RBC) [Mass/Vol]Or dered By: Alejo Salcido on 12-31-2021 MCHC (RBC) [Mass/Vol] 31.1 g/dL 32-36 [facility] No Panel InformationOrdered By: Alejo Salcido on 12-31-2021 Estimated GFR (MDRD) Amer 98 mL/min >60 [facility] Estimated GFR (MDRD) Non-Af Amer 81 mL/min >60 [facility] Platelets bldOrdered By: Levi Salcido on 12-31-2021 Platelets (Bld) [#/Vol] 125 10*3/uL 150-450 [facility] Serum or plasma albumin yonatan urement (mass/volume)Ordered By: Alejo Salcido on 12-31-2021 Albumin [Mass/Vol] 2.3 g/dL 3.2-5.0 [facility] Serum or plasma albumin/glob ulin mass ratioOrdered By: Alejo Salcido on 12-31-2021 Albumin/Globulin [Mass ratio] 0.6 {ratio} 0.9-2.4 [facility] Serum or plasma calcium yonatan urement (mass/volume)Ordered By: Alejo Salcido on 12-31-2021 Calcium [Mass/Vol] 8.4 mg/dL 8.5-10.1 [facility] Serum or plasma creatinine m easurement (mass/volume)Ordered By: Alejo Salcido on 12-31-2021 Creatinine [Mass/Vol] 0.73 mg/dL 0.55-1.02 [facility] Comment on above: The validity of the calculated GFR & GFRAA in patients over 70 years has not been determined. Clinical correlation is essential. Serum or plasma urea nitroge n measurement (mass/volume)Ordered By: Alejo Salcido on 12-31-2021 Urea nitrogen [Mass/Vol] 10 mg/dL 7-18 [facility] Thin prep Papanicolaou smear with manual screeningOrdered By: Alejo Salcido on 12-31-2021 Thin prep Papanicolaou smear with manual screening 35 U/L 15-37 [facility] Thin prep Papanicolaou smear with manual screening 9 5-15 [facility] Absolute lymphocyte countOrd ered By: Selma Durham on 12-28-2021 Lymphocytes Auto (Unsp spec) [#/Vol] 0.99 10*3/uL 0.83-4.51 [facility] Basophil percentageOrdered B y: Selma Durham on 12-28-2021 Basophils/100 WBC (Bld) 0.3 % 0-1 [facility] Eosinophils/100 WBC (Bld) 1.0 % 0-5 [facility] Neutrophils (Bld) [#/Vol] 1.5 10*3/uL 2.0-7.7 [facility] Neutrophils/100 WBC (Bld) 51.6 % 47-70 [facility] WBC (Bld) [#/Vol] 2.9 10*3/uL 4.4-11.0 [facility] Blood erythrocytes count (nu mber/volume)Ordered By: Selma Durham on 12-28-2021 RBC (Bld) [#/Vol] 2.60 10*6/uL 4.2-5.4 [facility] Blood hemoglobin measurement (mass/volume)Ordered By: Selma uDrham on 12-28-2021 Hemoglobin (Bld) [Mass/Vol] 7.1 g/dL 12.0-15.0 [facility] Blood lymphocytes/100 leukoc ytesOrdered By: Selma Durham on 12-28-2021 Lymphocytes/100 WBC (Bld) 33.8 % 19-41 [facility] Blood monocytes/100 leukocyt esOrdered By: Selma Durham on 12-28-2021 Monocytes/100 WBC (Bld) 13.0 % 0-10 [facility] Blood platelet mean volumeOr dered By: Selma Durham on 12-28-2021 Platelet mean volume (Bld) [Entitic vol] 10.2 fL 6.2-12.0 [facility] Determination of erythrocyte mean corpuscular volume (MCV)Ordered By: Selma Durham on 12-28-2021 MCV (RBC) [Entitic vol] 86.5 fL 81-99 [facility] Hematocrit Auto (Bld) [Volum e fraction]Ordered By: Selma Durham on 12-28-2021 Hematocrit (Bld) [Volume fraction] 22.5 % 37-47 [facility] INR in Blood by Coagulation assayOrdered By: Selma Durham on 12-28-2021 INR Coag (Bld) [Relative time] 2.6 {INR} [facility] Laboratory - CoagulationOrde red By: Selma Durham on 12-28-2021 PT Coag (PPP) [Time] 27.1 s 11.7-14.9 [facility] Laboratory - Hematology and Cell countsOrdered By: Selma Durham on 12-28-2021 Erythrocyte distribution width (RBC) [Entitic vol] 63.3 fL 35.1-43.9 [facility] Erythrocyte distribution width (RBC) [Ratio] 19.9 % 11.6-14.6 [facility] Immature granulocytes/100 WBC (Bld) 0.300 % 0.0-0.9 [facility] Comment on above: IG% - Immature Granu locytes (promyelocytes, myelocytes and metamyelocytes) > 1% indicates that a LEFT SHIFT is Present. MCH (RBC) [Entitic mass] 27.3 pg 27.0-32.0 [facility] Nucleated RBC/100 WBC (Bld) [Ratio] 0 % 0-5 [facility] MCHC Auto (RBC) [Mass/Vol]Or dered By: Selma Durham on 12-28-2021 MCHC (RBC) [Mass/Vol] 31.6 g/dL 32-36 [facility] Platelets bldOrdered By: Hafsa Durham on 12-28-2021 Platelets (Bld) [#/Vol] 108 10*3/uL 150-450 [facility] Absolute lymphocyte countOrd ered By: Alejo Salcido on 12-27-2021 Lymphocytes Auto (Unsp spec) [#/Vol] 1.15 10*3/uL 0.83-4.51 [facility] Basophil percentageOrdered B y: Alejo Salcido on 12-27-2021 Basophils/100 WBC (Bld) 0.0 % 0-1 [facility] Eosinophils/100 WBC (Bld) 1.2 % 0-5 [facility] Neutrophils (Bld) [#/Vol] 0.8 10*3/uL 2.0-7.7 [facility] Neutrophils/100 WBC (Bld) 33.7 % 47-70 [facility] WBC (Bld) [#/Vol] 2.4 10*3/uL 4.4-11.0 [facility] Blood erythrocytes count (nu mber/volume)Ordered By: Alejo Salcido on 12-27-2021 RBC (Bld) [#/Vol] 2.55 10*6/uL 4.2-5.4 [facility] Blood hemoglobin measurement (mass/volume)Ordered By: Alejo Salcido on 12-27-2021 Hemoglobin (Bld) [Mass/Vol] 6.7 g/dL 12.0-15.0 [facility] Blood lymphocytes/100 leukoc ytesOrdered By: Alejo Salcido on 12-27-2021 Lymphocytes/100 WBC (Bld) 47.1 % 19-41 [facility] Blood manual differential co mment interpretation (narrative result)Ordered By: Alejo Salcido on 12-27-2021 Manual differential comment [place] (Bld) [Interp] See comment [facility] Comment on above: NEUTROPENIA Blood monocytes/100 leukocyt esOrdered By: Alejo Salcido on 12-27-2021 Monocytes/100 WBC (Bld) 18.0 % 0-10 [facility] Blood platelet adequacy dete ction by light microscopyOrdered By: Alejo Salcido on 12-27-2021 Platelets LM Ql (Bld) SLT DEC ADEQ [facility] Blood platelet mean volumeOr dered By: Alejo Salcido on 12-27-2021 Platelet mean volume (Bld) [Entitic vol] 10.5 fL 6.2-12.0 [facility] Determination of erythrocyte mean corpuscular volume (MCV)Ordered By: Alejo Salcido on 12-27-2021 MCV (RBC) [Entitic vol] 87.1 fL 81-99 [facility] Hematocrit Auto (Bld) [Volum e fraction]Ordered By: Alejo Salcido on 12-27-2021 Hematocrit (Bld) [Volume fraction] 22.2 % 37-47 [facility] Hypochromatic red blood cell detectionOrdered By: Alejo Salcido on 12-27-2021 Hypochromia Ql (Bld) 2+ [facility] INR in Blood by Coagulation assayOrdered By: Alejo Salcido on 12-27-2021 INR Coag (Bld) [Relative time] 3.0 {INR} [facility] Laboratory - CoagulationOrde red By: Alejo Salcido on 12-27-2021 PT Coag (PPP) [Time] 30.9 s 11.7-14.9 [facility] Laboratory - Hematology and Cell countsOrdered By: Alejo Salcido on 12-27-2021 Anisocytosis Ql (Bld) 1+ [facility] Erythrocyte distribution width (RBC) [Entitic vol] 63.0 fL 35.1-43.9 [facility] Erythrocyte distribution width (RBC) [Ratio] 19.7 % 11.6-14.6 [facility] Immature granulocytes/100 WBC (Bld) 0.000 % 0.0-0.9 [facility] Comment on above: IG% - Immature Granu locytes (promyelocytes, myelocytes and metamyelocytes) > 1% indicates that a LEFT SHIFT is Present. MCH (RBC) [Entitic mass] 26.3 pg 27.0-32.0 [facility] Nucleated RBC/100 WBC (Bld) [Ratio] 0 % 0-5 [facility] MCHC Auto (RBC) [Mass/Vol]Or dered By: Alejo Salcido on 12-27-2021 MCHC (RBC) [Mass/Vol] 30.2 g/dL 32-36 [facility] Platelets bldOrdered By: Levi Salcido on 12-27-2021 Platelets (Bld) [#/Vol] 104 10*3/uL 150-450 [facility] Absolute lymphocyte countOrd ered By: Alejo Salcido on 12-22-2021 Lymphocytes Auto (Unsp spec) [#/Vol] 0.98 10*3/uL 0.83-4.51 [facility] Basophil percentageOrdered B y: Alejo Salcido on 12-22-2021 Basophils/100 WBC (Bld) 0.3 % 0-1 [facility] Chloride [Moles/Vol] 110 mmol/L 98-107 [facility] Eosinophils/100 WBC (Bld) 0.3 % 0-5 [facility] Glucose [Mass/Vol] 111 mg/dL 74-106 [facility] Comment on above: Fasting Glucose resu lt from 100 to 125 mg/dL suggests IMPAIRED HOMEOSTASIS per A.D.A. criteria. Neutrophils (Bld) [#/Vol] 2.1 10*3/uL 2.0-7.7 [facility] Neutrophils/100 WBC (Bld) 54.4 % 47-70 [facility] Potassium [Moles/Vol] 3.8 mmol/L 3.5-5.1 [facility] Sodium [Moles/Vol] 140 mmol/L 136-145 [facility] WBC (Bld) [#/Vol] 3.9 10*3/uL 4.4-11.0 [facility] Blood erythrocytes count (nu mber/volume)Ordered By: Alejo Salcido on 12-22-2021 RBC (Bld) [#/Vol] 2.80 10*6/uL 4.2-5.4 [facility] Blood hemoglobin measurement (mass/volume)Ordered By: Alejo Salcido on 12-22-2021 Hemoglobin (Bld) [Mass/Vol] 7.5 g/dL 12.0-15.0 [facility] Blood lymphocytes/100 leukoc ytesOrdered By: Alejo Salcido on 12-22-2021 Lymphocytes/100 WBC (Bld) 25.3 % 19-41 [facility] Blood monocytes/100 leukocyt esOrdered By: Alejo Salcido on 12-22-2021 Monocytes/100 WBC (Bld) 19.4 % 0-10 [facility] Blood platelet mean volumeOr dered By: Alejo Salcido on 12-22-2021 Platelet mean volume (Bld) [Entitic vol] 10.4 fL 6.2-12.0 [facility] Determination of erythrocyte mean corpuscular volume (MCV)Ordered By: Alejo Salcido on 12-22-2021 MCV (RBC) [Entitic vol] 85.4 fL 81-99 [facility] Hematocrit Auto (Bld) [Volum e fraction]Ordered By: Alejo Salcido on 12-22-2021 Hematocrit (Bld) [Volume fraction] 23.9 % 37-47 [facility] Laboratory - Chemistry and C hemistry - challengeOrdered By: Alejo Salcido on 12-22-2021 CO2 [Moles/Vol] 24.0 mmol/L 21.0-32.0 [facility] Urea nitrogen/Creatinine [Mass ratio] 19.0 mg/mg 10-20 [facility] Laboratory - Hematology and Cell countsOrdered By: Alejo Salcido on 12-22-2021 Erythrocyte distribution width (RBC) [Entitic vol] 61.6 fL 35.1-43.9 [facility] Erythrocyte distribution width (RBC) [Ratio] 19.5 % 11.6-14.6 [facility] Immature granulocytes/100 WBC (Bld) 0.300 % 0.0-0.9 [facility] Comment on above: IG% - Immature Granu locytes (promyelocytes, myelocytes and metamyelocytes) > 1% indicates that a LEFT SHIFT is Present. MCH (RBC) [Entitic mass] 26.8 pg 27.0-32.0 [facility] Nucleated RBC/100 WBC (Bld) [Ratio] 0 % 0-5 [facility] MCHC Auto (RBC) [Mass/Vol]Or dered By: Alejo Salcido on 12-22-2021 MCHC (RBC) [Mass/Vol] 31.4 g/dL 32-36 [facility] No Panel InformationOrdered By: Alejo Salcido on 12-22-2021 Estimated GFR (MDRD) Amer 72 mL/min >60 [facility] Comment on above: GFR Calc Estimated GFR (MDRD) Non-Af Amer 60 mL/min >60 [facility] Comment on above: Non- GFR Calc Platelets bldOrdered By: Levi Salcido on 12-22-2021 Platelets (Bld) [#/Vol] 136 10*3/uL 150-450 [facility] Serum or plasma calcium yonatan urement (mass/volume)Ordered By: Alejo Salcido on 12-22-2021 Calcium [Mass/Vol] 8.2 mg/dL 8.5-10.1 [facility] Serum or plasma creatinine m easurement (mass/volume)Ordered By: Alejo Salcido on 12-22-2021 Creatinine [Mass/Vol] 0.95 mg/dL 0.55-1.02 [facility] Comment on above: The validity of the calculated GFR & GFRAA in patients over 70 years has not been determined. Clinical correlation is essential. Serum or plasma urea nitroge n measurement (mass/volume)Ordered By: Alejo Salcido on 12-22-2021 Urea nitrogen [Mass/Vol] 18 mg/dL 7-18 [facility] Thin prep Papanicolaou smear with manual screeningOrdered By: Alejo Salcido on 12-22-2021 Thin prep Papanicolaou smear with manual screening 6 5-15 [facility] Laboratory - CoagulationOrde red By: Alejo Salcido on 12-17-2021 INR Coag (Bld) [Relative time] 2.7 {INR} [facility] Comment on above: Critical Value > 4.0 Whole blood prothrombin time Ordered By: Alejo Salcido on 12-17-2021 PT Coag (Bld) [Time] 31.0 s 11.7-14.9 [facility] Laboratory - CoagulationOrde red By: Alejo Salcido on 12-10-2021 INR Coag (Bld) [Relative time] 2.4 {INR} [facility] Comment on above: Critical Value > 4.0 Whole blood prothrombin time Ordered By: Alejo Salcido on 12-10-2021 PT Coag (Bld) [Time] 28.1 s 11.7-14.9 [facility] Absolute lymphocyte countOrd ered By: Alejo Salcido on 12-03-2021 Lymphocytes Auto (Unsp spec) [#/Vol] 1.47 10*3/uL 0.83-4.51 [facility] Basophil percentageOrdered B y: Alejo Salcido on 12-03-2021 Basophils/100 WBC (Bld) 0.8 % 0-1 [facility] Bilirubin [Mass/Vol] 0.40 mg/dL 0.20-1.00 [facility] Comment on above: For patients on eltr ombopag therapy, use of Dimension [place] TBIL is not recommended. Chloride [Moles/Vol] 113 mmol/L 98-107 [facility] Eosinophils/100 WBC (Bld) 2.9 % 0-5 [facility] Glucose [Mass/Vol] 84 mg/dL 74-106 [facility] Neutrophils (Bld) [#/Vol] 2.5 10*3/uL 2.0-7.7 [facility] Neutrophils/100 WBC (Bld) 51.5 % 47-70 [facility] Potassium [Moles/Vol] 4.0 mmol/L 3.5-5.1 [facility] Protein [Mass/Vol] 7.4 g/dL 6.4-8.2 [facility] Sodium [Moles/Vol] 144 mmol/L 136-145 [facility] WBC (Bld) [#/Vol] 4.9 10*3/uL 4.4-11.0 [facility] Blood erythrocytes count (nu mber/volume)Ordered By: Alejo Salcido on 12-03-2021 RBC (Bld) [#/Vol] 3.31 10*6/uL 4.2-5.4 [facility] Blood hemoglobin measurement (mass/volume)Ordered By: Alejo Salcido on 12-03-2021 Hemoglobin (Bld) [Mass/Vol] 8.6 g/dL 12.0-15.0 [facility] Blood lymphocytes/100 leukoc ytesOrdered By: Alejo Salcido on 12-03-2021 Lymphocytes/100 WBC (Bld) 29.9 % 19-41 [facility] Blood monocytes/100 leukocyt esOrdered By: Alejo Salcido on 12-03-2021 Monocytes/100 WBC (Bld) 14.7 % 0-10 [facility] Blood platelet mean volumeOr dered By: Alejo Salcido on 12-03-2021 Platelet mean volume (Bld) [Entitic vol] 10.1 fL 6.2-12.0 [facility] Determination of erythrocyte mean corpuscular volume (MCV)Ordered By: Alejo Salcido on 12-03-2021 MCV (RBC) [Entitic vol] 87.9 fL 81-99 [facility] Hematocrit Auto (Bld) [Volum e fraction]Ordered By: Alejo Salcido on 12-03-2021 Hematocrit (Bld) [Volume fraction] 29.1 % 37-47 [facility] INR in Blood by Coagulation assayOrdered By: Alejo Salcido on 12-03-2021 INR Coag (Bld) [Relative time] 2.4 {INR} [facility] Laboratory - Chemistry and C hemistry - challengeOrdered By: Alejo Salcido on 12-03-2021 ALP [Catalytic activity/Vol] 85 U/L 45-117 [facility] ALT [Catalytic activity/Vol] 22 U/L 13-56 [facility] CO2 [Moles/Vol] 25.0 mmol/L 21.0-32.0 [facility] Globulin (S) [Mass/Vol] 4.8 g/dL 2.2-4.2 [facility] Urea nitrogen/Creatinine [Mass ratio] 20.7 mg/mg 10-20 [facility] Laboratory - CoagulationOrde red By: Alejo Salcido on 12-03-2021 PT Coag (PPP) [Time] 25.8 s 11.7-14.9 [facility] Laboratory - Hematology and Cell countsOrdered By: Alejo Salcido on 12-03-2021 Erythrocyte distribution width (RBC) [Entitic vol] 62.5 fL 35.1-43.9 [facility] Erythrocyte distribution width (RBC) [Ratio] 19.6 % 11.6-14.6 [facility] Immature granulocytes/100 WBC (Bld) 0.200 % 0.0-0.9 [facility] Comment on above: IG% - Immature Granu locytes (promyelocytes, myelocytes and metamyelocytes) > 1% indicates that a LEFT SHIFT is Present. MCH (RBC) [Entitic mass] 26.0 pg 27.0-32.0 [facility] Nucleated RBC/100 WBC (Bld) [Ratio] 0 % 0-5 [facility] MCHC Auto (RBC) [Mass/Vol]Or dered By: Alejo Salcido on 12-03-2021 MCHC (RBC) [Mass/Vol] 29.6 g/dL 32-36 [facility] No Panel InformationOrdered By: Alejo Salcido on 12-03-2021 Estimated GFR (MDRD) Amer 106 mL/min >60 [facility] Comment on above: GFR Calc Estimated GFR (MDRD) Non-Af Amer 88 mL/min >60 [facility] Comment on above: Non- GFR Calc Platelets bldOrdered By: Levi Salcido on 12-03-2021 Platelets (Bld) [#/Vol] 173 10*3/uL 150-450 [facility] Serum or plasma albumin yonatan urement (mass/volume)Ordered By: Alejo Salcido on 12-03-2021 Albumin [Mass/Vol] 2.6 g/dL 3.2-5.0 [facility] Serum or plasma albumin/glob ulin mass ratioOrdered By: Alejo Salcido on 12-03-2021 Albumin/Globulin [Mass ratio] 0.5 {ratio} 0.9-2.4 [facility] Serum or plasma calcium yonatan urement (mass/volume)Ordered By: Alejo Salcido on 12-03-2021 Calcium [Mass/Vol] 9.3 mg/dL 8.5-10.1 [facility] Serum or plasma creatinine m easurement (mass/volume)Ordered By: Alejo Salcido on 12-03-2021 Creatinine [Mass/Vol] 0.68 mg/dL 0.55-1.02 [facility] Comment on above: The validity of the calculated GFR & GFRAA in patients over 70 years has not been determined. Clinical correlation is essential. Serum or plasma urea nitroge n measurement (mass/volume)Ordered By: Alejo Salcido on 12-03-2021 Urea nitrogen [Mass/Vol] 14 mg/dL 7-18 [facility] Thin prep Papanicolaou smear with manual screeningOrdered By: Alejo Salcido on 12-03-2021 Thin prep Papanicolaou smear with manual screening 24 U/L 15-37 [facility] Thin prep Papanicolaou smear with manual screening 6 5-15 [facility] Laboratory - Coagulationon 0 11-26-2021 INR Coag (Bld) [Relative time] 1.1 {INR} [facility] Work Phone: [phone] Comment on above: Critical Value > 4.0 Whole blood prothrombin time on 11-26-2021 PT Coag (Bld) [Time] 13.7 s 11.7-14.9 [facility] Work Phone: Absolute lymphocyte counton 11-20-2021 Lymphocytes Auto (Unsp spec) [#/Vol] 1.35 10*3/uL 0.83-4.51 [facility] Work Phone: Basophil percentageon 2021 Basophils/100 WBC (Bld) 0.8 % 0-1 [facility] Work Phone: Eosinophils/100 WBC (Bld) 1.7 % 0-5 [facility] Work Phone: Neutrophils (Bld) [#/Vol] 3.1 10*3/uL 2.0-7.7 [facility] Work Phone: Neutrophils/100 WBC (Bld) 59.8 % 47-70 [facility] Work Phone: WBC (Bld) [#/Vol] 5.2 10*3/uL 4.4-11.0 [facility] Work Phone: Blood erythrocytes count (nu mber/volume)on 11-20-2021 RBC (Bld) [#/Vol] 3.20 10*6/uL 4.2-5.4 [facility] Work Phone: Blood hemoglobin measurement (mass/volume)on 11-20-2021 Hemoglobin (Bld) [Mass/Vol] 8.5 g/dL 12.0-15.0 [facility] Work Phone: [phone] Blood lymphocytes/100 leukoc yteson 11-20-2021 Lymphocytes/100 WBC (Bld) 26.0 % 19-41 [facility] Work Phone: [phone] Blood monocytes/100 leukocyt eson 11-20-2021 Monocytes/100 WBC (Bld) 11.5 % 0-10 [facility] Work Phone: Blood platelet mean volumeon 11-20-2021 Platelet mean volume (Bld) [Entitic vol] 9.8 fL 6.2-12.0 [facility] Work Phone: Determination of erythrocyte mean corpuscular volume (MCV)on 11-20-2021 MCV (RBC) [Entitic vol] 88.1 fL 81-99 [facility] Work Phone: Hematocrit Auto (Bld) [Volum e fraction]on 11-20-2021 Hematocrit (Bld) [Volume fraction] 28.2 % 37-47 [facility] Work Phone: Laboratory - Hematology and Cell countson 11-20-2021 Erythrocyte distribution width (RBC) [Entitic vol] 63.0 fL 35.1-43.9 [facility] Work Phone: Erythrocyte distribution width (RBC) [Ratio] 19.5 % 11.6-14.6 [facility] Work Phone: Immature granulocytes/100 WBC (Bld) 0.200 % 0.0-0.9 [facility] Work Phone: Comment on above: IG% - Immature Granu locytes (promyelocytes, myelocytes and metamyelocytes) > 1% indicates that a LEFT SHIFT is Present. MCH (RBC) [Entitic mass] 26.6 pg 27.0-32.0 [facility] Work Phone: Nucleated RBC/100 WBC (Bld) [Ratio] 0 % 0-5 [facility] Work Phone: MCHC Auto (RBC) [Mass/Vol]on 11-20-2021 MCHC (RBC) [Mass/Vol] 30.1 g/dL 32-36 [facility] Work Phone: Platelets bldon 11-20-2021 Platelets (Bld) [#/Vol] 184 10*3/uL 150-450 [facility] Work Phone: Absolute lymphocyte counton 10-29-2021 Lymphocytes Auto (Unsp spec) [#/Vol] 1.41 10*3/uL 0.83-4.51 [facility] Work Phone: Basophil percentageon 2021 Basophils/100 WBC (Bld) 0.6 % 0-1 [facility] Work Phone: Bilirubin [Mass/Vol] 0.50 mg/dL 0.20-1.00 [facility] Work Phone: Comment on above: For patients on eltr ombopag therapy, use of Dimension [place] TBIL is not recommended. Chloride [Moles/Vol] 112 mmol/L 98-107 [facility] Work Phone: Eosinophils/100 WBC (Bld) 2.5 % 0-5 [facility] Work Phone: Glucose [Mass/Vol] 82 mg/dL 74-106 [facility] Work Phone: Neutrophils (Bld) [#/Vol] 2.5 10*3/uL 2.0-7.7 [facility] Work Phone: Neutrophils/100 WBC (Bld) 52.7 % 47-70 [facility] Work Phone: Potassium [Moles/Vol] 3.9 mmol/L 3.5-5.1 [facility] Work Phone: Protein [Mass/Vol] 7.0 g/dL 6.4-8.2 [facility] Work Phone: Sodium [Moles/Vol] 144 mmol/L 136-145 [facility] Work Phone: WBC (Bld) [#/Vol] 4.8 10*3/uL 4.4-11.0 [facility] Work Phone: Blood erythrocytes count (nu mber/volume)on 10-29-2021 RBC (Bld) [#/Vol] 3.13 10*6/uL 4.2-5.4 [facility] Work Phone: Blood hemoglobin measurement (mass/volume)on 10-29-2021 Hemoglobin (Bld) [Mass/Vol] 8.5 g/dL 12.0-15.0 [facility] Work Phone: Blood lymphocytes/100 leukoc yteson 10-29-2021 Lymphocytes/100 WBC (Bld) 29.7 % 19-41 [facility] Work Phone: Blood monocytes/100 leukocyt eson 10-29-2021 Monocytes/100 WBC (Bld) 14.5 % 0-10 [facility] Work Phone: Blood platelet mean volumeon 10-29-2021 Platelet mean volume (Bld) [Entitic vol] 10.4 fL 6.2-12.0 [facility] Work Phone: Determination of erythrocyte mean corpuscular volume (MCV)on 10-29-2021 MCV (RBC) [Entitic vol] 86.6 fL 81-99 [facility] Work Phone: Hematocrit Auto (Bld) [Volum e fraction]on 10-29-2021 Hematocrit (Bld) [Volume fraction] 27.1 % 37-47 [facility] Work Phone: Laboratory - Chemistry and C hemistry - challengeon 10-29-2021 ALP [Catalytic activity/Vol] 77 U/L 45-117 [facility] Work Phone: ALT [Catalytic activity/Vol] 23 U/L 13-56 [facility] Work Phone: CO2 [Moles/Vol] 24.0 mmol/L 21.0-32.0 [facility] Work Phone: Globulin (S) [Mass/Vol] 4.4 g/dL 2.2-4.2 [facility] Work Phone: Urea nitrogen/Creatinine [Mass ratio] 23.5 mg/mg 10-20 [facility] Work Phone: Laboratory - Hematology and Cell countson 10-29-2021 Erythrocyte distribution width (RBC) [Entitic vol] 55.9 fL 35.1-43.9 [facility] Work Phone: Erythrocyte distribution width (RBC) [Ratio] 18.0 % 11.6-14.6 [facility] Work Phone: Immature granulocytes/100 WBC (Bld) 0.000 % 0.0-0.9 [facility] Work Phone: Comment on above: IG% - Immature Granu locytes (promyelocytes, myelocytes and metamyelocytes) > 1% indicates that a LEFT SHIFT is Present. MCH (RBC) [Entitic mass] 27.2 pg 27.0-32.0 [facility] Work Phone: Nucleated RBC/100 WBC (Bld) [Ratio] 0 % 0-5 [facility] Work Phone: MCHC Auto (RBC) [Mass/Vol]on 10-29-2021 MCHC (RBC) [Mass/Vol] 31.4 g/dL 32-36 [facility] Work Phone: No Panel Informationon 10-29 Estimated GFR (MDRD) Amer 92 mL/min >60 [facility] Work Phone: Comment on above: GFR Calc Estimated GFR (MDRD) Non-Af Amer 76 mL/min >60 [facility] Work Phone: Comment on above: Non- GFR Calc Thyroid Stimulating Hormone (TSH) 1.37 uIU/mL 0.358-3.74 [facility] Work Phone: Platelets bldon 08-15-2022 Platelets (Bld) [#/Vol] 164 10*3/uL 150-450 [facility] Work Phone: [phone] Serum or plasma albumin yonatan urement (mass/volume)on 10-29-2021 Albumin [Mass/Vol] 2.6 g/dL 3.2-5.0 [facility] Work Phone: [phone] Serum or plasma albumin/glob ulin mass ratioon 10-29-2021 Albumin/Globulin [Mass ratio] 0.6 {ratio} 0.9-2.4 [facility] Work Phone: [phone] Serum or plasma calcium yonatan urement (mass/volume)on 10-29-2021 Calcium [Mass/Vol] 9.2 mg/dL 8.5-10.1 [facility] Work Phone: [phone] Serum or plasma creatinine m easurement (mass/volume)on 10-29-2021 Creatinine [Mass/Vol] 0.77 mg/dL 0.55-1.02 [facility] Work Phone: [phone] Comment on above: The validity of the calculated GFR & GFRAA in patients over 70 years has not been determined. Clinical correlation is essential. Serum or plasma urea nitroge n measurement (mass/volume)on 10-29-2021 Urea nitrogen [Mass/Vol] 18 mg/dL 7-18 [facility] Work Phone: [phone] Thin prep Papanicolaou smear with manual screeningon 10-29-2021 Thin prep Papanicolaou smear with manual screening 27 U/L 15-37 [facility] Work Phone: Thin prep Papanicolaou smear with manual screening 8 5-15 [facility] Work Phone: Absolute lymphocyte counton 10-18-2021 Lymphocytes Auto (Unsp spec) [#/Vol] 1.43 10*3/uL 0.83-4.51 [facility] Work Phone: [phone] Basophil percentageon 2021 Basophil percentage 0 SEEN /hpf 0-5 [facility] Work Phone: [phone] Basophils/100 WBC (Bld) 0.4 % 0-1 [facility] Work Phone: Chloride [Moles/Vol] 111 mmol/L 98-107 [facility] Work Phone: Eosinophils/100 WBC (Bld) 1.4 % 0-5 [facility] Work Phone: Glucose [Mass/Vol] 113 mg/dL 74-106 [facility] Work Phone: Comment on above: Fasting Glucose resu lt from 100 to 125 mg/dL suggests IMPAIRED HOMEOSTASIS per A.D.A. criteria. Neutrophils (Bld) [#/Vol] 3.2 10*3/uL 2.0-7.7 [facility] Work Phone: Neutrophils/100 WBC (Bld) 57.4 % 47-70 [facility] Work Phone: Potassium [Moles/Vol] 3.9 mmol/L 3.5-5.1 [facility] Work Phone: Sodium [Moles/Vol] 140 mmol/L 136-145 [facility] Work Phone: WBC (Bld) [#/Vol] 5.5 10*3/uL 4.4-11.0 [facility] Work Phone: [phone] Bilirubin Test strip Ql (U)o n 10-18-2021 Bilirubin Ql (U) Negative Negative [facility] Work Phone: Blood erythrocytes count (nu mber/volume)on 10-18-2021 RBC (Bld) [#/Vol] 2.39 10*6/uL 4.2-5.4 [facility] Work Phone: Blood hemoglobin measurement (mass/volume)on 10-18-2021 Hemoglobin (Bld) [Mass/Vol] 6.2 g/dL 12.0-15.0 [facility] Work Phone: Blood lymphocytes/100 leukoc yteson 10-18-2021 Lymphocytes/100 WBC (Bld) 25.9 % 19-41 [facility] Work Phone: Blood monocytes/100 leukocyt eson 10-18-2021 Monocytes/100 WBC (Bld) 14.5 % 0-10 [facility] Work Phone: Blood platelet mean volumeon 10-18-2021 Platelet mean volume (Bld) [Entitic vol] 8.9 fL 6.2-12.0 [facility] Work Phone: Determination of erythrocyte mean corpuscular volume (MCV)on 10-18-2021 MCV (RBC) [Entitic vol] 84.5 fL 81-99 [facility] Work Phone: Hematocrit Auto (Bld) [Volum e fraction]on 10-18-2021 Hematocrit (Bld) [Volume fraction] 20.2 % 37-47 [facility] Work Phone: INR in Blood by Coagulation assayon 10-18-2021 INR Coag (Bld) [Relative time] 1.7 {INR} [facility] Work Phone: Iron measurement (mass/mass) on 10-18-2021 Iron (Unsp spec) [Mass/Mass] 25 ug/dL 50-170 [facility] Work Phone: Ketones Test strip Ql (U)on 10-18-2021 Ketones Ql (U) Negative Negative [facility] Work Phone: [phone] Laboratory - Chemistry and C hemistry - challengeon 10-18-2021 CO2 [Moles/Vol] 25.0 mmol/L 21.0-32.0 [facility] Work Phone: Urea nitrogen/Creatinine [Mass ratio] 23.5 mg/mg 10-20 [facility] Work Phone: Laboratory - Coagulationon 0 10-18-2021 PT Coag (PPP) [Time] 19.9 s 11.7-14.9 [facility] Work Phone: Laboratory - Hematology and Cell countson 10-18-2021 Erythrocyte distribution width (RBC) [Entitic vol] 53.0 fL 35.1-43.9 [facility] Work Phone: Erythrocyte distribution width (RBC) [Ratio] 17.2 % 11.6-14.6 [facility] Work Phone: Immature granulocytes/100 WBC (Bld) 0.400 % 0.0-0.9 [facility] Work Phone: Comment on above: IG% - Immature Granu locytes (promyelocytes, myelocytes and metamyelocytes) > 1% indicates that a LEFT SHIFT is Present. MCH (RBC) [Entitic mass] 25.9 pg 27.0-32.0 [facility] Work Phone: Nucleated RBC/100 WBC (Bld) [Ratio] 0 % 0-5 [facility] Work Phone: MCHC Auto (RBC) [Mass/Vol]on 10-18-2021 MCHC (RBC) [Mass/Vol] 30.7 g/dL 32-36 [facility] Work Phone: Mucus LM Ql (Urine sed)on Mucus Ql (Urine sed) 0 SEEN /hpf [facility] Work Phone: Nitrite Test strip Ql (U)on 10-18-2021 Nitrite Ql (U) Negative Negative [facility] Work Phone: No Panel Informationon 10-18 Estimated Creatinine Clearance Calc 38.50 ml/min [facility] Work Phone: Estimated GFR (MDRD) Amer 99 mL/min >60 [facility] Work Phone: Comment on above: GFR Calc Estimated GFR (MDRD) Non-Af Amer 82 mL/min >60 [facility] Work Phone: Comment on above: Non- GFR Calc Total Iron Binding Capacity 371 ug/dL 250-450 [facility] Work Phone: Platelets bldon 10-18-2021 Platelets (Bld) [#/Vol] 140 10*3/uL 150-450 [facility] Work Phone: Protein Test strip Ql (U)on 10-18-2021 Protein Ql (U) Negative Negative [facility] Work Phone: Serum or plasma calcium yonatan urement (mass/volume)on 10-18-2021 Calcium [Mass/Vol] 8.1 mg/dL 8.5-10.1 [facility] Work Phone: Serum or plasma creatinine m easurement (mass/volume)on 10-18-2021 Creatinine [Mass/Vol] 0.72 mg/dL 0.55-1.02 [facility] Work Phone: Comment on above: The validity of the calculated GFR & GFRAA in patients over 70 years has not been determined. Clinical correlation is essential. Serum or plasma ferritin shania surement (mass/volume)on 10-18-2021 Ferritin [Mass/Vol] 10 ng/mL 8-252 [facility] Work Phone: Serum or plasma iron saturat ion measurement (mass fraction)on 10-18-2021 Iron saturation [Mass fraction] 6.7 % 15.0-55.0 [facility] Work Phone: Serum or plasma urea nitroge n measurement (mass/volume)on 10-18-2021 Urea nitrogen [Mass/Vol] 17 mg/dL 7-18 [facility] Work Phone: Squamous epithelial cells de tection in urine sediment by light microscopyon 10-18-2021 Epithelial cells.squamous LM Ql (Urine sed) 0 SEEN /hpf 5-10 [facility] Work Phone: Thin prep Papanicolaou smear with manual screeningon 10-18-2021 Thin prep Papanicolaou smear with manual screening 4 5-15 [facility] Work Phone: Urine blood detectionon RBC Ql (U) Negative Negative [facility] Work Phone: RBC Ql (U) 0 SEEN /hpf 0-5 [facility] Work Phone: Urine clarityon 10-18-2021 Clarity (U) Clear Clear [facility] Work Phone: Urine color determinationon 10-18-2021 Color (U) Yellow Yellow [facility] Work Phone: Urine glucose detectionon Glucose Ql (U) Normal mg/dl Normal [facility] Work Phone: Urine leukocyte esterase det ection by dipstickon 10-18-2021 Leukocyte esterase Test strip Ql (U) 100 /ul Negative [facility] Work Phone: Urine pHon 10-18-2021 pH (U) 6.5 [pH] 5.0 - 8.0 [facility] Work Phone: Urine sediment bacteria coun t by microscopy (number/high power field)on 10-18-2021 Bacteria LM.HPF (Urine sed) [#/Area] 0 /[HPF] None Seen [facility] Work Phone: Urine specific gravity measu rementon 10-18-2021 Specific gravity (U) [Rel density] 1.005 1.002-1.030 [facility] Work Phone: Urobilinogen Auto test strip Ql (U)on 10-18-2021 Urobilinogen Ql (U) Normal mg/dl Normal [facility] Work Phone: CBC W Auto Differential pane l (Bld)on 10-16-2021 Abs Immature Gran <0.03 <0.10 k/uL [facility] Basophils (Bld) [#/Vol] 0.04 10*3/uL <0.11 k/uL [facility] Basophils/100 WBC (Bld) 0.8 % [facility] Differential cell count method Nom (Bld) Auto [facility] Eosinophils (Bld) [#/Vol] 0.07 10*3/uL <0.46 k/uL [facility] Eosinophils/100 WBC (Bld) 1.3 % [facility] Erythrocyte distribution width (RBC) [Ratio] 17.0 % High 11.5 - 15.0 % [facility] Hematocrit (Bld) [Volume fraction] 21.0 % Low 36.0 - 46.0 % [facility] Hemoglobin (Bld) [Mass/Vol] 6.5 g/dL Low 11.5 - 15.5 g/dL [facility] Immature Gran % 0.4 % [facility] Lymphocytes (Bld) [#/Vol] 1.10 10*3/uL 1.00 - 4.00 k/uL [facility] Lymphocytes/100 WBC (Bld) 21.2 % [facility] MCH (RBC) [Entitic mass] 25.6 pg Low 26.0 - 34.0 pg [facility] MCHC (RBC) [Mass/Vol] 31.0 g/dL 30.5 - 36.0 g/dL [facility] MCV (RBC) [Entitic vol] 82.7 fL 80.0 - 100.0 fL [facility] Monocytes (Bld) [#/Vol] 0.61 10*3/uL <0.87 k/uL [facility] Monocytes/100 WBC (Bld) 11.7 % [facility] Neutrophils (Bld) [#/Vol] 3.36 10*3/uL 1.45 - 7.50 k/uL [facility] Neutrophils/100 WBC (Bld) 64.6 % [facility] Nucleated RBC (Bld) [#/Vol] 10*3/uL <0.01 k/uL [facility] Nucleated RBC/100 WBC (Bld) [Ratio] 0.0 /100 WBC [facility] Platelet mean volume (Bld) [Entitic vol] 9.1 fL 9.0 - 12.7 fL [facility] Platelets (Bld) [#/Vol] 164 10*3/uL 150 - 400 k/uL [facility] RBC (Bld) [#/Vol] 2.54 10*6/uL Low 3.90 - 5.2 0 m/uL [facility] WBC (Bld) [#/Vol] 5.20 10*3/uL 3.70 - 11.00 k/uL [facility] INR FINGERSTICK B/Oon 2021 INR Coag (Bld) [Relative time] 2.1 (biotel) [facility] Quality Check No [facility] INR FINGERSTICK B/Oon 2021 INR Coag (Bld) [Relative time] 4.8 {INR} [facility] CNOVon 09-26-2021 CNOV Office Visit (CRISTINE ) CHRISTIAN LANDRUM ([id number]) 1935 F Date Time Provider Department 09/26/21 [...] UTIs, used to see Dr. Burris at [facility]. Prior colovesical fistula, s/p sigmoid colectomy. [...] >=60 mL/min/1.73m? 79 Medical and Symptom History: [employer] HISTORY: Last Pap: Date:04/18/20 NIL; Last [...] (POC)on 2021 BILIRUBIN UA (POCT) Negative Negative [facility] CLARITY UA (POCT) Clear [facility] COLOR UA (POCT) Yellow [facility] GLUCOSE UA (POCT) Negative Negative mg/dL [facility] HEMOGLOBIN/BLOOD UA (POCT) Negative Negative [facility] KETONE UA (POCT) Negative Negative mg/dL [facility] LEUKOCYTES UA (POCT) Negative Negative [facility] NITRITE UA (POCT) Negative Negative [facility] PH UA (POCT) 6.5 4.5 - 8.0 [facility] Protein Ql (U) Negative Negative mg/dL [facility] SPECIFIC GRAVITY UA (POCT) 1.010 1.005 - 1.030 [facility] UROBILINOGEN UA (POCT) 0.2 E.U./dL Winifred l E.U./dL [facility] UA DIP, URINE (POC)on 2021 BILIRUBIN UA (POCT) Negative Negative [facility] CLARITY UA (POCT) Cloudy [facility] COLOR UA (POCT) Yellow [facility] GLUCOSE UA (POCT) Negative Negative mg/dL [facility] HEMOGLOBIN/BLOOD UA (POCT) Trace-intact Abnormal Negative [facility] KETONE UA (POCT) Negative Negative mg/dL [facility] LEUKOCYTES UA (POCT) Large Abnormal Negative [facility] NITRITE UA (POCT) Negative Negative [facility] PH UA (POCT) 6.0 4.5 - 8.0 [facility] Protein Ql (U) Negative Negative mg/dL [facility] SPECIFIC GRAVITY UA (POCT) 1.015 1.005 - 1.030 [facility] UROBILINOGEN UA (POCT) 0.2 E.U./dL Winifred l E.U./dL [facility] Absolute lymphocyte counton 08-26-2021 Lymphocytes Auto (Unsp spec) [#/Vol] 1.15 10*3/uL 0.83-4.51 [facility] Work Phone: Basophil percentageon 2021 Basophils/100 WBC (Bld) 0.4 % 0-1 [facility] Work Phone: Chloride [Moles/Vol] 109 mmol/L 98-107 [facility] Work Phone: Eosinophils/100 WBC (Bld) 1.9 % 0-5 [facility] Work Phone: Glucose [Mass/Vol] 111 mg/dL 74-106 [facility] Work Phone: Comment on above: Fasting Glucose resu lt from 100 to 125 mg/dL suggests IMPAIRED HOMEOSTASIS per A.D.A. criteria. Neutrophils (Bld) [#/Vol] 3.3 10*3/uL 2.0-7.7 [facility] Work Phone: Neutrophils/100 WBC (Bld) 61.2 % 47-70 [facility] Work Phone: Potassium [Moles/Vol] 4.1 mmol/L 3.5-5.1 [facility] Work Phone: Sodium [Moles/Vol] 140 mmol/L 136-145 [facility] Work Phone: WBC (Bld) [#/Vol] 5.3 10*3/uL 4.4-11.0 [facility] Work Phone: Blood erythrocytes count (nu mber/volume)on 08-26-2021 RBC (Bld) [#/Vol] 2.86 10*6/uL 4.2-5.4 [facility] Work [facility]: Blood hemoglobin measurement (mass/volume)on 08-26-2021 Hemoglobin (Bld) [Mass/Vol] 8.0 g/dL 12.0-15.0 [facility] Work Phone: Blood lymphocytes/100 leukoc yteson 08-26-2021 Lymphocytes/100 WBC (Bld) 21.5 % 19-41 [facility] Work Phone: Blood monocytes/100 leukocyt eson 08-26-2021 Monocytes/100 WBC (Bld) 14.6 % 0-10 [facility] Work Phone: Blood platelet mean volumeon 08-26-2021 Platelet mean volume (Bld) [Entitic vol] 9.3 fL 6.2-12.0 [facility] Work Phone: Determination of erythrocyte mean corpuscular volume (MCV)on 08-26-2021 MCV (RBC) [Entitic vol] 90.2 fL 81-99 [facility] Work Phone: Hematocrit Auto (Bld) [Volum e fraction]on 08-26-2021 Hematocrit (Bld) [Volume fraction] 25.8 % 37-47 [facility] Work Phone: INR in Blood by Coagulation assayon 08-26-2021 INR Coag (Bld) [Relative time] 2.9 {INR} [facility] Work Phone: Laboratory - Chemistry and C hemistry - challengeon 08-26-2021 CO2 [Moles/Vol] 28.0 mmol/L 21.0-32.0 [facility] Work Phone: Urea nitrogen/Creatinine [Mass ratio] 15.6 mg/mg 10-20 [facility] Work Phone: Laboratory - Coagulationon 0 08-26-2021 PT Coag (PPP) [Time] 29.6 s 11.7-14.9 [facility] Work Phone: Laboratory - Hematology and Cell countson 08-26-2021 Erythrocyte distribution width (RBC) [Entitic vol] 56.8 fL 35.1-43.9 [facility] Work Phone: Erythrocyte distribution width (RBC) [Ratio] 17.1 % 11.6-14.6 [facility] Work Phone: Immature granulocytes/100 WBC (Bld) 0.400 % 0.0-0.9 [facility] Work Phone: Comment on above: IG% - Immature Granu locytes (promyelocytes, myelocytes and metamyelocytes) > 1% indicates that a LEFT SHIFT is Present. MCH (RBC) [Entitic mass] 28.0 pg 27.0-32.0 [facility] Work Phone: Nucleated RBC/100 WBC (Bld) [Ratio] 0 % 0-5 [facility] Work Phone: MCHC Auto (RBC) [Mass/Vol]on 08-26-2021 MCHC (RBC) [Mass/Vol] 31.0 g/dL 32-36 [facility] Work Phone: No Panel Informationon 08-26 Estimated Creatinine Clearance Calc 38.50 ml/min [facility] Work Phone: Estimated GFR (MDRD) Amer 92 mL/min >60 [facility] Work Phone: Comment on above: GFR Calc Estimated GFR (MDRD) Non-Af Amer 76 mL/min >60 [facility] Work Phone: Comment on above: Non- GFR Calc Platelets bldon 08-26-2021 Platelets (Bld) [#/Vol] 155 10*3/uL 150-450 [facility] Work Phone: Serum or plasma calcium yonatan urement (mass/volume)on 08-26-2021 Calcium [Mass/Vol] 8.7 mg/dL 8.5-10.1 [facility] Work Phone: Serum or plasma creatinine m easurement (mass/volume)on 08-26-2021 Creatinine [Mass/Vol] 0.77 mg/dL 0.55-1.02 [facility] Work Phone: Comment on above: The validity of the calculated GFR & GFRAA in patients over 70 years has not been determined. Clinical correlation is essential. Serum or plasma urea nitroge n measurement (mass/volume)on 08-26-2021 Urea nitrogen [Mass/Vol] 12 mg/dL 7-18 [facility] Work Phone: Thin prep Papanicolaou smear with manual screeningon 08-26-2021 Thin prep Papanicolaou smear with manual screening 3 5-15 [facility] Work Phone: Basophil percentageon 2021 WBC (Bld) [#/Vol] 6.6 10*3/uL 4.4-11.0 [facility] Work Phone: Blood erythrocytes count (nu mber/volume)on 08-23-2021 RBC (Bld) [#/Vol] 2.94 10*6/uL 4.2-5.4 [facility] Work Phone: Blood hemoglobin measurement (mass/volume)on 08-23-2021 Hemoglobin (Bld) [Mass/Vol] 8.2 g/dL 12.0-15.0 [facility] Work Phone: Blood platelet mean volumeon 08-23-2021 Platelet mean volume (Bld) [Entitic vol] 9.3 fL 6.2-12.0 [facility] Work Phone: Determination of erythrocyte mean corpuscular volume (MCV)on 08-23-2021 MCV (RBC) [Entitic vol] 89.8 fL 81-99 [facility] Work Phone: Hematocrit Auto (Bld) [Volum e fraction]on 08-23-2021 Hematocrit (Bld) [Volume fraction] 26.4 % 37-47 [facility] Work Phone: [phone] INR in Blood by Coagulation assayon 08-23-2021 INR Coag (Bld) [Relative time] 2.8 {INR} [facility] Work Phone: [phone] Laboratory - Coagulationon 0 08-23-2021 aPTT Coag (Bld) [Time] 46.5 s 24.1-36.2 [facility] Work Phone: [phone] PT Coag (PPP) [Time] 28.8 s 11.7-14.9 [facility] Work Phone: [phone] Laboratory - Hematology and Cell countson 08-23-2021 Erythrocyte distribution width (RBC) [Entitic vol] 56.3 fL 35.1-43.9 [facility] Work Phone: [phone] Erythrocyte distribution width (RBC) [Ratio] 17.0 % 11.6-14.6 [facility] Work Phone: [phone] MCH (RBC) [Entitic mass] 27.9 pg 27.0-32.0 [facility] Work Phone: [phone] MCHC Auto (RBC) [Mass/Vol]on 08-23-2021 MCHC (RBC) [Mass/Vol] 31.1 g/dL 32-36 [facility] Work Phone: [phone] Platelets bldon 08-23-2021 Platelets (Bld) [#/Vol] 160 10*3/uL 150-450 [facility] Work Phone: [phone] CBC panel Auto (Bld)on 08-13 Erythrocyte distribution width (RBC) [Ratio] 16.9 % High 11.5-15.0 [facility] Comment on above: Order Comment: Speci men Type: BLOOD SPECIMENOrdering Facility: [facility] Address: [address] [place] [address] Performed By: #### 5 8410-2 ####[facility] LABORATORYCLIA [id number] [place] [address] [place] Hematocrit (Bld) [Volume fraction] 25.6 % Low 36.0-46.0 [facility] Comment on above: Order Comment: Speci men Type: BLOOD SPECIMENOrdering Facility: [facility] Address: [address] [place] [address] Performed By: #### 5 8410-2 ####[facility] LABORATORYCLIA [id number] [address] Hemoglobin (Bld) [Mass/Vol] 8.2 g/dL Low 11.5-15.5 [facility] Comment on above: Order Comment: Speci men Type: BLOOD SPECIMENOrdering Facility: [facility] Address: [address] [place] [address] Performed By: #### 5 8410-2 ####[facility]OD[facility] LABORATORYCLIA [id number] [address] MCH (RBC) [Entitic mass] 28.4 pg Normal 26.0-34.0 [facility] Comment on above: Order Comment: Speci men Type: BLOOD SPECIMENOrdering Facility: [facility] Address: [address] [place] [address] Performed By: #### 5 8410-2 ####ROD[facility] LABORATORYCLIA [id number] [address] [place] MCHC (RBC) [Mass/Vol] 32.0 g/dL Normal 30.5-36.[address] [facility] Comment on above: Order Comment: Speci men Type: BLOOD SPECIMENOrdering Facility: [facility] Address: [address] [place] [address] Performed By: #### 5 8410-2 ####ROD[facility] LABORATORYCLIA [id number] [address] MCV (RBC) [Entitic vol] 88.6 fL Normal 80.0-100.0 [facility] Comment on above: Order Comment: Speci men Type: BLOOD SPECIMENOrdering Facility: [facility] Address: [address] [place] [address] Performed By: #### 5 8410-2 ####RODAS LABORATORYCLIA [id number] [place] [address] [facility] [place] Nucleated RBC (Bld) [#/Vol] 10*3/uL Normal <0.01 [facility] Comment on above: Order Comment: Speci men Type: BLOOD SPECIMENOrdering Facility: [facility] Address: [address] [place] [address] Performed By: #### 5 8410-2 ####RODAS LABORATORYCLIA [id number] [place] [address] [place] Platelet mean volume (Bld) [Entitic vol] 9.3 fL Normal 9.0-12.7 [facility] Comment on above: Order Comment: Speci men Type: BLOOD SPECIMENOrdering Facility: [facility] Address: [address] [place] [address] Performed By: #### 5 8410-2 ####RODAS LABORATORYCLIA [id number] [address] [place] Platelets (Bld) [#/Vol] 108 10*3/uL Low 150-400 [facility] Comment on above: Order Comment: Speci men Type: BLOOD SPECIMENOrdering Facility: [facility] Address: [address] [place] [address] Performed By: #### 5 8410-2 ####ROD[facility] LABORATORYCLIA [id number] [address] [place] RBC (Bld) [#/Vol] 2.89 10*6/uL Low 3.90-5.20 [facility] Comment on above: Order Comment: Speci men Type: BLOOD SPECIMENOrdering Facility: [facility] Address: [address] [place] [address] Performed By: #### 5 8410-2 ####RODAS LABORATORYCLIA [id number] [address] [place] WBC (Bld) [#/Vol] 5.19 10*3/uL Normal 3.70-11.00 [facility] Comment on above: Order Comment: Speci men Type: BLOOD SPECIMENOrdering Facility: [facility] Address: [address] [place], [place] [address], [place] [address] Performed By: #### 5 8410-2 ####[facility] [id number] [place] [address] [facility] CNDS 08-13-2021 CNDS HNO ID: [id number] Author: Alisha Velásquez PA-C Service: Hospital Medicine Author Type: Physician Cartographic Aide Type: Discharge Summary Filed: 08/13/2021 1:52 PM [...] Attending Provider: Catarina Ragsdale MD Primary Service: Me Hm 5 Physician Cartographic Aide: Alisha Velásquez PA-C Consulting: Samuel Qiu MD [...] DISPOSITION: Ho (more content not included)... Normal [facility] Comprehensive metabolic 2000 panelon 08-13-2021 Albumin [Mass/Vol] 2.9 g/dL Low 3.9-4.9 [facility] Comment on above: Order Comment: Olga coley Type: BLOOD SPECIMEN Ordering Facility: [facility] Address: [address] [place] [address] Performed By: #### 5 7021-8 #### [facility] CLIA [id number] [address] [place] [address] [place] ALP [Catalytic activity/Vol] 71 U/L Normal 34-123 [facility] Comment on above: Order Comment: Olga coley Type: BLOOD SPECIMEN Ordering Facility: [facility] Address: [address] [place] [address] Performed By: #### 5 7021-8 #### [facility] CLIA [id number] [address] [place] ALT [Catalytic activity/Vol] 14 U/L Normal 7-38 [facility] Comment on above: Order Comment: Olga coley Type: BLOOD SPECIMEN Ordering Facility: [facility] Address: [address] [place] [address] Performed By: #### 5 7021-8 #### [facility] CLIA [id number] [address] [place] [address] [place] Anion gap [Moles/Vol] 9 mmol/L Normal 9-[address] [facility] Comment on above: Order Comment: Speci men Type: BLOOD SPECIMEN Ordering Facility: [facility] Address: [address] [place] [address] Performed By: #### 5 7021-8 #### [facility] CLIA [id number] [address] [place] [address] [place] AST [Catalytic activity/Vol] 28 U/L Normal 13-35 [facility] Comment on above: Order Comment: Speci men Type: BLOOD SPECIMEN Ordering Facility: [facility] Address: [address] [place] [address] Performed By: #### 5 7021-8 #### [facility] CLIA [id number] [address] [place] [address] [place] Bilirubin [Mass/Vol] 0.5 mg/dL Normal 0.2-1.3 [facility] Comment on above: Order Comment: Speci men Type: BLOOD SPECIMEN Ordering Facility: [facility] Address: [address] [place] [address] Performed By: #### 5 7021-8 #### [facility] CLIA [id number] [address] [place] Calcium [Mass/Vol] 8.5 mg/dL Normal 8.5-10.2 [facility] Comment on above: Order Comment: Speci men Type: BLOOD SPECIMEN Ordering Facility: [facility] Address: [address] [place] [address] Performed By: #### 5 7021-8 #### [facility] CLIA [id number] [address] [place] [address] [place] Chloride [Moles/Vol] 110 mmol/L High 97-105 [facility] Comment on above: Order Comment: Speci men Type: BLOOD SPECIMEN Ordering Facility: [facility] Address: [address] [place] [address] Performed By: #### 5 7021-8 #### [facility] CLIA [id number] [address] STATES [facility] CO2 [Moles/Vol] 23 mmol/L Normal 22-30 [facility] Comment on above: Order Comment: Speci men Type: BLOOD SPECIMEN Ordering Facility: [facility] Address: [address] [place] [address] Performed By: #### 5 7021-8 #### [facility] CLIA [id number] [address] Creatinine [Mass/Vol] 0.74 mg/dL Normal 0.58-0.[address] [facility] Comment on above: Order Comment: Speci men Type: BLOOD SPECIMEN Ordering Facility: [facility] Address: [address] [place] [address] Performed By: #### 5 7021-8 #### [facility] CLIA [id number] [address] ESTIMATED GLOMERULAR FILTRATION RATE 79 mL/min/1.73m??? Normal >=60 [facility] Comment on above: Order Comment: Speci men Type: BLOOD SPECIMEN Ordering Facility: [facility] Address: [address] [place] [address] Result Comment: Huma mated Glomerular Filtration Rate [...] GFR. Performed By: #### 5 7021-8 #### [facility] CLIA [id number] [address] Glucose [Mass/Vol] 126 mg/dL High 74-99 [facility] Comment on above: Order Comment: Speci men Type: BLOOD SPECIMEN Ordering Facility: [facility] Address: [address] [place] [address] Result Comment: The [place] [employer] (ADA) provides guidance for cutoff [...] Standards of Medical Care in Diabetes 2016, [place] [employer]. Diabetes Care. 2016.39(Suppl 1). Performed By: #### 5 7021-8 #### [facility] CLIA [id number] [address] [place] Potassium [Moles/Vol] 4.0 mmol/L Normal 3.7-5.[address] [facility] Comment on above: Order Comment: Olga coley Type: BLOOD SPECIMEN Ordering Facility: [facility] Address: [address] [place] [address] Performed By: #### 5 7021-8 #### [facility] CLIA [id number] [address] [place] Protein [Mass/Vol] 6.5 g/dL Normal 6.3-8.0 [facility] Comment on above: Order Comment: Olga coley Type: BLOOD SPECIMEN Ordering Facility: [facility] Address: [address] [place] [address] Performed By: #### 5 7021-8 #### [facility] CLIA [id number] [address] [place] Sodium [Moles/Vol] 142 mmol/L Normal 136-144 [facility] Comment on above: Order Comment: Olga coley Type: BLOOD SPECIMEN Ordering Facility: [facility] Address: [address] [address] Performed By: #### 5 7021-8 #### [facility] CLIA [id number] [address] [place] [address] [place] Urea nitrogen [Mass/Vol] 11 mg/dL Normal 10-04 [facility] Comment on above: Order Comment: Olga coley Type: BLOOD SPECIMEN Ordering Facility: [facility] Address: [address] [place] [address] Performed By: #### 5 7021-8 #### [facility] CLIA [id number] [address] [place] Magnesium SerPl-mCncon 08-13 Magnesium [Mass/Vol] 2.1 mg/dL Normal 1.7-2.3 [facility] Comment on above: Order Comment: Olga coley Type: BLOOD SPECIMEN Ordering Facility: [facility] Address: [address] [place] [address] Performed By: #### 5 7021-8 #### [facility] CLIA [id number] [address] OF [facility] PT panel Coag (PPP)on 2021 INR Coag (PPP) [Relative time] 2.0 {INR} High 0.9-1.3 [facility] Comment on above: Order Comment: Olga coley Type: BLOOD SPECIMENOrdering Facility: [facility] Address: [address] [place] [address] Result Comment: Maricruz min K Antagonist (VKA) Therapeutic Range: INR 2 to 3 (Target INR of 2.5) Note: For patients treated with VKA drugs, such as warfarin, the [place] [employer] 2012 Guideline recommends [...] Chest 2012, 141:7S-47S Geri RA et al. [facility] 2017, 70: 252-289 Performed By: #### 3 4528-0 ####[facility]ORYCLIA [id number] [place] [address] [facility] [place] PT Coag (PPP) [Time] 20.1 s High 9.7-13.0 [facility] Comment on above: Order Comment: Speci men Type: BLOOD SPECIMENOrdering Facility: [facility] Address: [address] [place] [address] Performed By: #### 3 4528-0 ####[facility] [id number] [address] [place] Bacteria Bld Culton 08-13-19 22 Bacteria identified Cx Nom (Bld) CULTURE, BLOOD: No growth 5 days Normal [facility] Comment on above: Performed By: #### 6 00-7 ####[facility] [id number] [address] Bacteria identified Cx Nom (Bld) CULTURE, BLOOD: No growth 5 days Normal [facility] Comment on above: Performed By: #### 6 00-7 ####[facility] [id number] [address] [place] Bacteria Ur Culton 2 Bacteria identified [...] F Susceptible <=40 , Resistant >40 Abnormal [facility] Comment on above: Performed By: #### 6 30-4 ####[facility] [id number] [address] STATES OF [facility] CBC W Auto Differential pane l (Bld)on 08-12-2021 Basophils (Bld) [#/Vol] 10*3/uL Normal <0.11 [facility] Comment on above: Order Comment: Olga coley Type: BLOOD SPECIMEN Ordering Facility: [facility] Address: [address] [address] Performed By: #### 5 7021-8 #### [facility] CLIA [id number] [address] [place] Basophils/100 WBC (Bld) 0.4 % Normal [facility] Comment on above: Order Comment: Olga coley Type: BLOOD SPECIMEN Ordering Facility: [facility] Address: [address] [place] [address] Performed By: #### 5 7021-8 #### [facility] CLIA [id number] [address] [place] Differential cell count method Nom (Bld) Auto Normal [facility] Comment on above: Order Comment: Speci men Type: BLOOD SPECIMEN Ordering Facility: [facility] Address: [address] [place] [address] Performed By: #### 5 7021-8 #### [facility] CLIA [id number] [address] [place] Eosinophils (Bld) [#/Vol] 0.07 10*3/uL Normal <0.46 [facility] Comment on above: Order Comment: Speci men Type: BLOOD SPECIMEN Ordering Facility: [facility] Address: [address] [place] [address] Performed By: #### 5 7021-8 #### [facility] CLIA [id number] [address] Eosinophils/100 WBC (Bld) 1.4 % [facility] Comment on above: Order Comment: Speci men Type: BLOOD SPECIMEN Ordering Facility: [facility] Address: [address] [place] [address] Performed By: #### 5 7021-8 #### [facility] CLIA [id number] [address] Erythrocyte distribution width (RBC) [Ratio] 16.9 % High 11.5-15.0 [facility] Comment on above: Order Comment: Speci men Type: BLOOD SPECIMEN Ordering Facility: [facility] Address: [address] [place] [address] Performed By: #### 5 7021-8 #### [facility] CLIA [id number] [address] [place] Hematocrit (Bld) [Volume fraction] 25.7 % Low 36.0-46.0 [facility] Comment on above: Order Comment: Speci men Type: BLOOD SPECIMEN Ordering Facility: [facility] Address: [address] [address] Performed By: #### 5 7021-8 #### [facility] CLIA [id number] [address] [place] Hemoglobin (Bld) [Mass/Vol] 8.1 g/dL Low 11.5-15.5 [facility] Comment on above: Order Comment: Speci men Type: BLOOD SPECIMEN Ordering Facility: [facility] Address: [address] [place] [address] Performed By: #### 5 7021-8 #### [facility] CLIA [id number] [address] [place] IMMATURE GRAN % 0.4 % Normal [facility] Comment on above: Order Comment: Speci men Type: BLOOD SPECIMEN Ordering Facility: [facility] Address: [address] [place] [address] Performed By: #### 5 7021-8 #### [facility] CLIA [id number] [address] OF [facility] IMMATURE GRAN ABS <0.03 Normal <0.10 [facility] Comment on above: Order Comment: Speci men Type: BLOOD SPECIMEN Ordering Facility: [facility] Address: [address] [place] [address] Performed By: #### 5 7021-8 #### [facility] CLIA [id number] [address] [place] Lymphocytes (Bld) [#/Vol] 1.28 10*3/uL Normal 1.00-4.00 [facility] Comment on above: Order Comment: Speci men Type: BLOOD SPECIMEN Ordering Facility: [facility] Address: [address] [place] [address] Performed By: #### 5 7021-8 #### [facility] CLIA [id number] [address] Lymphocytes/100 WBC (Bld) 25.5 % Normal [facility] Comment on above: Order Comment: Speci men Type: BLOOD SPECIMEN Ordering Facility: [facility] Address: [address] [address] Performed By: #### 5 7021-8 #### [facility] CLIA [id number] [address] MCH (RBC) [Entitic mass] 28.7 pg Normal 26.0-34.0 [facility] Comment on above: Order Comment: Speci men Type: BLOOD SPECIMEN Ordering Facility: [facility] Address: [address] [place] [address] Performed By: #### 5 7021-8 #### [facility] CLIA [id number] [address] [place] MCHC (RBC) [Mass/Vol] 31.5 g/dL Normal 30.5-36.[address] [facility] Comment on above: Order Comment: Speci men Type: BLOOD SPECIMEN Ordering Facility: [facility] Address: [address] [place] [address] Performed By: #### 5 7021-8 #### [facility] CLIA [id number] [address] MCV (RBC) [Entitic vol] 91.1 fL Normal 80.0-100.0 [facility] Comment on above: Order Comment: Speci men Type: BLOOD SPECIMEN Ordering Facility: [facility] Address: [address] [place] [address] Performed By: #### 5 7021-8 #### [facility] CLIA [id number] [address] [place] Monocytes (Bld) [#/Vol] 0.75 10*3/uL Normal <0.87 [facility] Comment on above: Order Comment: Speci men Type: BLOOD SPECIMEN Ordering Facility: [facility] Address: [address] [place] [address] Performed By: #### 5 7021-8 #### [facility] CLIA [id number] [address] Monocytes/100 WBC (Bld) 15.0 % Normal [facility] Comment on above: Order Comment: Speci men Type: BLOOD SPECIMEN Ordering Facility: [facility] Address: [address] [address] Performed By: #### 5 7021-8 #### [facility] CLIA [id number] [address] [place] Neutrophils (Bld) [#/Vol] 2.87 10*3/uL Normal 1.45-7.50 [facility] Comment on above: Order Comment: Speci men Type: BLOOD SPECIMEN Ordering Facility: [facility] Address: [address] [place] [address] Performed By: #### 5 7021-8 #### [facility] CLIA [id number] [address] Neutrophils/100 WBC (Bld) 57.3 % Normal [facility] Comment on above: Order Comment: Speci men Type: BLOOD SPECIMEN Ordering Facility: [facility] Address: [address] [place] [address] Performed By: #### 5 7021-8 #### [facility] CLIA [id number] [address] [place] Nucleated RBC (Bld) [#/Vol] 10*3/uL Normal <0.01 [facility] Comment on above: Order Comment: Speci men Type: BLOOD SPECIMEN Ordering Facility: [facility] Address: [address] [place] [address] Performed By: #### 5 7021-8 #### [facility] CLIA [id number] [address] Nucleated RBC/100 WBC (Bld) [Ratio] 0.0 /100 WBC Normal [facility] Comment on above: Order Comment: Speci men Type: BLOOD SPECIMEN Ordering Facility: [facility] Address: [address] [place] [address] Performed By: #### 5 7021-8 #### [facility] CLIA [id number] [address] OF [facility] Platelet mean volume (Bld) [Entitic vol] 9.6 fL Normal 9.0-12.7 [facility] Comment on above: Order Comment: Speci men Type: BLOOD SPECIMEN Ordering Facility: [facility] Address: [address] [place] [address] Performed By: #### 5 7021-8 #### [facility] CLIA [id number] [address] Platelets (Bld) [#/Vol] 116 10*3/uL Low 150-400 [facility] Comment on above: Order Comment: Speci men Type: BLOOD SPECIMEN Ordering Facility: [facility] Address: [address] [place] [address] Performed By: #### 5 7021-8 #### [facility] CLIA [id number] [address] [place] RBC (Bld) [#/Vol] 2.82 10*6/uL Low 3.90-5.20 [facility] Comment on above: Order Comment: Speci men Type: BLOOD SPECIMEN Ordering Facility: [facility] Address: [address] [place] [address] Performed By: #### 5 7021-8 #### [facility] CLIA [id number] [address] WBC (Bld) [#/Vol] 5.01 10*3/uL Normal 3.70-11.00 [facility] Comment on above: Order Comment: Speci men Type: BLOOD SPECIMEN Ordering Facility: [facility] Address: [address] [place] [address] Performed By: #### 5 7021-8 #### [facility] CLIA [id number] [address] Comprehensive metabolic 2000 panelon 08-12-2021 Albumin [Mass/Vol] 3.1 g/dL Low 3.9-4.9 [facility] Comment on above: Order Comment: Speci men Type: BLOOD SPECIMENOrdering Facility: [facility] Address: [address] [place] [address] Performed By: #### P ADAN, 48033-4 ####[facility] [id number] [address] ALP [Catalytic activity/Vol] 78 U/L Normal 34-123 [facility] Comment on above: Order Comment: Speci men Type: BLOOD SPECIMENOrdering Facility: [facility] Address: [address] [place] [address] Performed By: #### P ADAN, 50918-7 ####[facility] [id number] [address] ALT [Catalytic activity/Vol] 15 U/L Normal 7-38 [facility] Comment on above: Order Comment: Speci men Type: BLOOD SPECIMENOrdering Facility: [facility] Address: [address] [place] [address] Performed By: #### P ADAN, 97328-2 ####[facility] [id number] [address] Anion gap [Moles/Vol] 8 mmol/L Low 9-[address] [facility] Comment on above: Order Comment: Speci men Type: BLOOD SPECIMENOrdering Facility: [facility] Address: [address] [place] [address] Performed By: #### P ADAN, 45354-0 ####[facility] [id number] [address] AST [Catalytic activity/Vol] 31 U/L Normal 13-35 [facility] Comment on above: Order Comment: Speci men Type: BLOOD SPECIMENOrdering Facility: [facility] Address: [address] [place] [address] Performed By: #### P ROCAL, 67677-2 ####[facility]CLIA [id number] [address] [place] Bilirubin [Mass/Vol] 0.6 mg/dL Normal 0.2-1.3 [facility] Comment on above: Order Comment: Speci men Type: BLOOD SPECIMENOrdering Facility: [facility] Address: [address] [place] [address] Performed By: #### P ROCELBERT, 03489-5 ####[facility]ORYCLIA [id number] [address] STATES OF [facility] Calcium [Mass/Vol] 8.7 mg/dL Normal 8.5-10.2 [facility] Comment on above: Order Comment: Speci men Type: BLOOD SPECIMENOrdering Facility: [facility] Address: [address] [place] [address] Performed By: #### P ADAN, 48280-4 ####[facility]ORYCLIA [id number] [place] [address] [place] Chloride [Moles/Vol] 106 mmol/L High 97-105 [facility] Comment on above: Order Comment: Speci men Type: BLOOD SPECIMENOrdering Facility: [facility] Address: [address] [place] [address] Performed By: #### P ADAN, 81985-1 ####[facility]ORYCLIA [id number] [address] [place] CO2 [Moles/Vol] 24 mmol/L Normal 22-30 [facility] Comment on above: Order Comment: Speci men Type: BLOOD SPECIMENOrdering Facility: [facility] Address: [address] [place] [address] Performed By: #### P ADAN, 75721-8 ####[facility]ORYCLIA [id number] [address] [place] Creatinine [Mass/Vol] 0.78 mg/dL Normal 0.58-0.[address] [facility] Comment on above: Order Comment: Speci men Type: BLOOD SPECIMENOrdering Facility: [facility] Address: [address] [place] [address] Performed By: #### P ROCELBERT, 80708-4 ####[facility]ORYCLIA [id number] [address] ESTIMATED GLOMERULAR FILTRATION RATE 75 mL/min/1.73m??? Normal >=60 [facility] Comment on above: Order Comment: Speci men Type: BLOOD SPECIMENOrdering Facility: [facility] Address: [address] [place] [address] Result Comment: Huma mated Glomerular Filtration Rate [...] actual GFR. Performed By: #### Jyoti ARELLANO, 03742-6 ####[facility]ATORYCLIA [id number] [place] [id number] [place] Glucose [Mass/Vol] 113 mg/dL High 74-99 [facility] Comment on above: Order Comment: Olga coley Type: BLOOD SPECIMENOrdering Facility: [facility] Address: [address] [place], [place] [address] Result Comment: The [place] [employer] (ADA) provides guidance for cutoff [...] Standards of Medical Care in Diabetes 2016, [place] [employer]. Diabetes Care. 2016.39(Suppl 1). Performed By: #### Jyoti ARELLANO 47423-4 ####[facility]ORYCLIA [id number] [address] [id number] [place] Potassium [Moles/Vol] 3.6 mmol/L Low 3.7-5.[address] [facility] Comment on above: Order Comment: Olga coley Type: BLOOD SPECIMENOrdering Facility: [facility] Address: [address] [place] [address] Performed By: #### Jyoti ARELLANO, 55678-8 ####[facility]ATORYCLIA [id number] [place] [address] [place] Protein [Mass/Vol] 7.0 g/dL Normal 6.3-8.0 [facility] Comment on above: Order Comment: Speci men Type: BLOOD SPECIMENOrdering Facility: [facility] Address: [address] [place] [address] Performed By: #### P ROCAL, 23035-3 ####[facility]ORYCLIA [id number] [address] [place] Sodium [Moles/Vol] 138 mmol/L Normal 136-144 [facility] Comment on above: Order Comment: Speci men Type: BLOOD SPECIMENOrdering Facility: [facility] Address: [address] [place] [address] Performed By: #### P ROCAL, 36697-0 ####[facility]ORYCLIA [id number] [address] [place] Urea nitrogen [Mass/Vol] 13 mg/dL Normal 7-21 [facility] Comment on above: Order Comment: Speci men Type: BLOOD SPECIMENOrdering Facility: [facility] Address: [address] [place] [address] Performed By: #### P ROCELBERT, 41299-7 ####[facility]ORYCLIA [id number] [address] OF [facility] ED NOTEon 08-12-2021 ED NOTE HNO ID: [id number] Author: Madonna Dimas RN Service: ? Author Type: Registered Nurse Type: ED Notes Filed: 08/12/2021 7:37 PM Note Text: Pt report was called to [facility] ED NOTE HNO ID: [id number] Author: Madonna Dimas RN Service: ? Author Type: Registered Nurse Type: ED Notes Filed: 08/12/2021 7:32 PM Note Text: Pt is ambulatory Family has been bedside [facility] ED NOTE HNO ID: [id number] Author: Madonna Dimas RN Service: ? Author Type: Registered Nurse Type: ED Notes Filed: 08/12/2021 6:23 PM Note Text: Waiting for a bed assignment in the [facility] ED NOTE HNO ID: [id number] Author: Madonna Dimas RN Service: ? Author Type: Registered Nurse Type: ED Notes Filed: 08/12/2021 3:42 PM Note Text: Pt report was received Normal [facility] ED NOTE HNO ID: [id number] Author: Marcela Sandoval RN Service: Nursing Author [...] started with a fever and hematuria today. Normal [facility] ED PROV NOTEon 08-12-2021 ED PROV NOTE HNO ID: [id number] Author: Page Dudley MD Service: ? Author [...] She was admitted earlier this month at [facility] for sepsis, seemingly from a UTI. She [...] REMOVE TONSILS/ADENOIDS,<12 (more content not included)... Normal [facility] Gas and Carbon monoxide pane l (BldV)on 08-12-2021 Base excess Calc (BldV) [Moles/Vol] 0 mmol/L Normal 0-2 [facility] Comment on above: Order Comment: Speci men Type: VENOUS BLOOD SPECIMENOrdering Facility: [facility] Address: [address] [address] Performed By: #### 2 4344-4 ####[facility]ORY[facility] [id number] [id number] [address] [address] Carboxyhemoglobin (BldV) [Mass fraction] 1.0 % Normal 0.0-2.0 [facility] Comment on above: Order Comment: Speci men Type: VENOUS BLOOD SPECIMENOrdering Facility: [facility] Address: [address] [address] Performed By: #### 2 4344-4 ####[facility]ORYCLIA [id number] [facility] [id number] [address] [address] CO2 (BldV) [Partial pressure] 39 mm[Hg] Low 42-55 [facility] Comment on above: Order Comment: Speci men Type: VENOUS BLOOD SPECIMENOrdering Facility: [facility] Address: [address] Performed By: #### 2 4344-4 ####[facility] RESPIRATORYIA [id number] [facility]AT[facility] [id number] [address] [address] CO2 adjusted to patient's actual temperature (BldV) [Partial pressure] Normal [facility] Comment on above: Order Comment: Speci men Type: VENOUS BLOOD SPECIMENOrdering Facility: [facility] Address: [address] Performed By: #### 2 4344-4 ####[facility] RESPIRATORYIA [id number] [facility] RESPIRATORY [id number] [address] [address] HCO3 (Bld) [Moles/Vol] 24 mmol/L Normal 24-28 [facility] Comment on above: Order Comment: Speci men Type: VENOUS BLOOD SPECIMENOrdering Facility: [facility] Address: [address] Performed By: #### 2 4344-4 ####[facility] RESPIRATORYIA [id number] [facility]PIRAT[facility] [id number] [address] [address] Hemoglobin (Bld) [Mass/Vol] 15.3 g/dL Normal 11.5-15.5 [facility] Comment on above: Order Comment: Speci men Type: VENOUS BLOOD SPECIMENOrdering Facility: [facility] Address: [address] Performed By: #### 2 4344-4 ####CAM[facility] RESPIRATORYIA [id number] [facility] RESPIRAT[facility] [id number] [address] [address] Lactate [Moles/Vol] 1.9 mmol/L Normal 0.5-2.2 [facility] Comment on above: Order Comment: Speci men Type: VENOUS BLOOD SPECIMENOrdering Facility: [facility] Address: [address] [place] [address] Performed By: #### 2 4344-4 ####[facility] RESPIRATORYCLIA [id number] [facility]OS[facility] RESPIRATORY [id number] [address] [address] Methemoglobin (Bld) [Mass fraction] % Normal 0.0-1.5 [facility] Comment on above: Order Comment: Speci men Type: VENOUS BLOOD SPECIMENOrdering Facility: [facility] Address: [address] Performed By: #### 2 4344-4 ####[facility] RESPIRATORYCLIA [id number] [facility] RESPIRAT[facility] [id number] [address] [address] O2 THERAPY RA=Room Air Normal [facility] Comment on above: Order Comment: Speci men Type: VENOUS BLOOD SPECIMENOrdering Facility: [facility] Address: [address] Performed By: #### 2 4344-4 ####[facility] RESPIRATORYCLIA [id number] [facility]OS[facility] RESPIRATORY [id number] [address] [address] Oxygen (BldV) [Partial pressure] 43 mm[Hg] Normal 35-45 [facility] Comment on above: Order Comment: Speci men Type: VENOUS BLOOD SPECIMENOrdering Facility: [facility] Address: [address] Performed By: #### 2 4344-4 ####[facility] RESPIRATORYCLIA [id number] [facility] RESPIRATORY [id number] [address] [address] Oxygen adjusted to patient's actual temperature (BldV) [Partial pressure] Normal [facility] Comment on above: Order Comment: Speci men Type: VENOUS BLOOD SPECIMENOrdering Facility: [facility] Address: [address] Performed By: #### 2 4344-4 ####R[facility] RESPIRATORYCLIA [id number] [facility] RESPIRATORY [id number] [address] [address] Oxyhemoglobin (BldV) [Mass fraction] 74 % Normal 60-85 [facility] Comment on above: Order Comment: Speci men Type: VENOUS BLOOD SPECIMENOrdering Facility: [facility] Address: [address] [place] [address] Performed By: #### 2 4344-4 ####R[facility] RESPIRATORYCLIA [id number] [facility] RESPIRATORY [id number] [place] [address] pH (BldV) 7.41 [pH] Normal 7.32-7.42 [facility] Comment on above: Order Comment: Speci men Type: VENOUS BLOOD SPECIMENOrdering Facility: [facility] Address: [address] [place] [address] Performed By: #### 2 4344-4 ####[facility] RESPIRATORYIA [id number] [facility] RESPIRATORY [id number] [place] [address] pH adjusted to patient's actual temperature (BldV) Normal [facility] Comment on above: Order Comment: Speci men Type: VENOUS BLOOD SPECIMENOrdering Facility: [facility] Address: [address] [place] [address] Performed By: #### 2 4344-4 ####[facility] RESPIRATORYCLIA [id number] [facility] RESPIRATORY [place] [address] Potassium [Moles/Vol] 3.6 mmol/L Normal 3.5-5.[address] [facility] Comment on above: Order Comment: Speci men Type: VENOUS BLOOD SPECIMENOrdering Facility: [facility] Address: [address] [place] [address] Performed By: #### 2 4344-4 ####[facility] RESPIRATORYCLIA [id number] [facility] RESPIRATORY [id number] [place] [address] HISTORY PHYSICALon HISTORY PHYSICAL HNO ID: [id number] Author: Vania Oliveira APRN.[employer] Service: Hospital Medicine Author Type: Nurse Practitioner [...] Galina Iraheta MD NIGHT AND WEEKEND COVERAGE: [facility] COVERAGE: Days: [phone], please page attending physician. Nights: [phone], please page [place] [facility] Night coverage pager [phone]. Subjective CHIEF COMPLAINT: dysuria HPI: 86yo female [...] sepsis as this was diagnosed recently at [facility], thus requesting admission for IV antibiotics. [...] mass on liver - PMR (polymyalgia rheumatica) ([facility]) 2012 - Pure hypercholesterolemia - Snoring - [...] BREAST NEEDLE (more content not included)... Normal [facility] PROCALCITONIN (LAB)on 2021 Procalcitonin [Mass/Vol] 0.11 ng/mL High <0.09 [facility] Comment on above: Order Comment: Olga coley Type: BLOOD SPECIMENOrdering Facility: [facility] Address: [address] [place], [place] [address] Result Comment: For a guided interpretation of test results, please visit the Change in Procalcitonin Calculator, [email or web address]. Performed By: #### P ADAN, 09472-5 ####[facility] LABORATORYCLIA [id number] [place] [address] [place] [facility] PT panel Coag (PPP)on 2021 INR Coag (PPP) [Relative time] 2.0 {INR} High 0.9-1.3 [facility] Comment on above: Order Comment: Olga coley Type: BLOOD SPECIMENOrdering Facility: [facility] Address: [address] [place], [place] [address] Result Comment: Maricruz min K Antagonist (VKA) Therapeutic Range: INR 2 to 3 (Target INR of 2.5) Note: For patients treated with VKA drugs, such as warfarin, the [employer] 2012 Guideline recommends [...] Chest 2012, 141:7S-47S Geri RA, et al. [facility] 2017, 70: 252-289 Performed By: #### 3 4528-0, 96213-2 ####[facility] LABORATORYCLIA [id number] [place] [address] [place] PT Coag (PPP) [Time] 20.3 s High 9.7-13.0 [facility] Comment on above: Order Comment: Speci men Type: BLOOD SPECIMENOrdering Facility: [facility] Address: [address] [place] [address] Performed By: #### 3 4528-0, 78094-1 ####CAM[facility] LABORATORYCLIA [id number] [address] OF [facility] SARS-CoV-2 RNA Resp Ql DEMARCUS+p robeon 08-12-2021 SARS-CoV-2 (COVID-19) RNA DEMARCUS+probe Ql (Resp) COVID 19 RESULT: SARS-CoV-2 (Agent of COVID-19) Not Detected by RT-PCR or equivalent method. This test has been authorized by FDA under an Emergency Use Authorization (EUA). Normal [facility] Comment on above: Performed By: #### 9 4500-6 ####[facility] LABORATORYCLIA [id number] [address] URINALYSIS, REFLEX MICROSCOP ICon 08-12-2021 Bilirubin Ql (U) Negative Normal Negative [facility] Comment on above: Order Comment: Speci men Type: URINE SPECIMENOrdering Facility: [facility] Address: [address] [place] [address] Performed By: #### L [id number] ####[facility] LABORATORYCLIA [id number] [address] STATES OF [facility] Clarity (Unsp spec) Clear Normal Clear [facility] Comment on above: Order Comment: Speci men Type: URINE SPECIMENOrdering Facility: [facility] Address: [address] [place] [address] Performed By: #### L [id number] ####R[facility] LABORATORYCLIA [id number] [address] OF [facility] Color (U) Yellow Normal Yellow [facility] Comment on above: Order Comment: Speci men Type: URINE SPECIMENOrdering Facility: [facility] Address: [address] [place] [address] Performed By: #### L [id number] ####[facility] LABORATORYCLIA [id number] [address] Glucose Test strip (U) [Mass/Vol] Negative Normal Negative [facility] Comment on above: Order Comment: Speci men Type: URINE SPECIMENOrdering Facility: [facility] Address: [address] [place] [address] Performed By: #### L [id number] ####R[facility] LABORATORYCLIA [id number] [address] Hemoglobin Ql (U) Trace Abnormal Negative [facility] Comment on above: Order Comment: Speci men Type: URINE SPECIMENOrdering Facility: [facility] Address: [address] [place] [address] Performed By: #### L [id number] ####R[facility] LABORATORYCLIA [id number] [address] Ketones Ql (U) Negative Normal Negative [facility] Comment on above: Order Comment: Speci men Type: URINE SPECIMENOrdering Facility: [facility] Address: [address] [place] [address] Performed By: #### L [id number] ####R[facility] LABORATORYCLIA [id number] [address] Leukocyte esterase Test strip Ql (U) 3+ Abnormal Negative [facility] Comment on above: Order Comment: Speci men Type: URINE SPECIMENOrdering Facility: [facility] Address: [address] [place] [address] Performed By: #### L [id number] ####R[facility] LABORATORYCLIA [id number] [address] [place] Nitrite Ql (U) Negative Normal Negative [facility] Comment on above: Order Comment: Speci men Type: URINE SPECIMENOrdering Facility: [facility] Address: [address] [place] [address] Performed By: #### L [id number] ####[facility] LABORATORYCLIA [id number] [place] [address] [place] pH (U) 6.5 [pH] Normal 5.0-8.0 [facility] Comment on above: Order Comment: Speci men Type: URINE SPECIMENOrdering Facility: [facility] Address: [address] [place] [address] Performed By: #### L [id number] ####[facility] LABORATORYCLIA [id number] [address] [place] Protein (U) [Mass/Vol] Negative Normal Negative [facility] Comment on above: Order Comment: Speci men Type: URINE SPECIMENOrdering Facility: [facility] Address: [address] [place] [address] Performed By: #### L [id number] ####[facility] TRUMBULLCLIA [id number] [place] [address] [place] RBC LM.HPF (Urine sed) [#/Area] 0-3 /HPF Normal 0-3 /HPF [facility] Comment on above: Order Comment: Speci men Type: URINE SPECIMENOrdering Facility: [facility] Address: [address] [place] [address] Performed By: #### L [id number] ####[facility] LABORATORYCLIA [id number] [place] [address] [place] Specific gravity (U) [Rel density] <=1.005 Low 1.005-1.030 [facility] Comment on above: Order Comment: Speci men Type: URINE SPECIMENOrdering Facility: [facility] Address: [address] [place] [address] Performed By: #### L [id number] ####[facility] LABORATORYCLIA [id number] [place] [address] [place] Urobilinogen Ql (U) 0.2 EU/dL Normal 0.2-1.0 EU/dL [facility] Comment on above: Order Comment: Speci men Type: URINE SPECIMENOrdering Facility: [facility] Address: [address] [place] [address] Performed By: #### L [id number] ####[facility] LABORATORYCLIA [id number] [address] WBC LM.HPF (Urine sed) [#/Area] /[HPF] Abnormal 0-5 /HPF [facility] Comment on above: Order Comment: Speci men Type: URINE SPECIMENOrdering Facility: [facility] Address: [address] [place] [address] Performed By: #### L [id number] ####[facility] LABORATORYCLIA [id number] [address] [place] US DVT LOWER LTon [...] imaged segments of the left lower extremity. Sheet [place] Sander: PSCB Transcribe Date/Time: Aug 12 2021 9:49P Dictated by : MEHRDAD INIGUEZ MD This examination was interpreted and the report reviewed and electronically signed by: MEHRDAD INIGUEZ MD on Aug 12 2021 9:50PM EST [id number] Normal [facility] aPTT PPPon 08-12-2021 aPTT Coag (PPP) [Time] 72.9 s High 23.0-32.4 [facility] Comment on above: Order Comment: Speci men Type: BLOOD SPECIMENOrdering Facility: [facility] Address: [address] [place], [place] [address] Performed By: #### 3 4528-0, 72944-0 ####[facility] LABORATORYCLIA [id number] [place] [address] [place] UA DIP, URINE (POC)on 2021 BILIRUBIN UA (POCT) Negative Negative [facility] CLARITY UA (POCT) Clear [facility] COLOR UA (POCT) Yellow [facility] GLUCOSE UA (POCT) Negative Negative mg/dL [facility] HEMOGLOBIN/BLOOD UA (POCT) Trace-intact Abnormal Negative [facility] KETONE UA (POCT) Negative Negative mg/dL [facility] LEUKOCYTES UA (POCT) Small Abnormal Negative [facility] NITRITE UA (POCT) Negative Negative [facility] PH UA (POCT) 6.5 4.5 - 8.0 [facility] Protein Ql (U) Negative Negative mg/dL [facility] SPECIFIC GRAVITY UA (POCT) 1.010 1.005 - 1.030 [facility] UROBILINOGEN UA (POCT) 0.2 E.U./dL Winifred l E.U./dL [facility] Absolute lymphocyte counton 07-23-2021 Lymphocytes Auto (Unsp spec) [#/Vol] 1.68 10*3/uL 0.83-4.51 [facility] Work Phone: Basophil percentageon 2021 Basophils/100 WBC (Bld) 0.7 % 0-1 [facility] Work Phone: Chloride [Moles/Vol] 109 mmol/L 98-107 [facility] Work Phone: Eosinophils/100 WBC (Bld) 1.3 % 0-5 [facility] Work Phone: Glucose [Mass/Vol] 79 mg/dL 74-106 [facility] Work Phone: Neutrophils (Bld) [#/Vol] 4.3 10*3/uL 2.0-7.7 [facility] Work Phone: Neutrophils/100 WBC (Bld) 61.7 % 47-70 [facility] Work Phone: Potassium [Moles/Vol] 3.8 mmol/L 3.5-5.1 [facility] Work Phone: Sodium [Moles/Vol] 143 mmol/L 136-145 [facility] Work Phone: WBC (Bld) [#/Vol] 7.0 10*3/uL 4.4-11.0 [facility] Work Phone: Blood erythrocytes count (nu mber/volume)on 07-23-2021 RBC (Bld) [#/Vol] 3.00 10*6/uL 4.2-5.4 [facility] Work Phone: Blood hemoglobin measurement (mass/volume)on 07-23-2021 Hemoglobin (Bld) [Mass/Vol] 9.0 g/dL 12.0-15.0 [facility] Work Phone: Blood lymphocytes/100 leukoc yteson 07-23-2021 Lymphocytes/100 WBC (Bld) 24.1 % 19-41 [facility] Work Phone: Blood monocytes/100 leukocyt eson 07-23-2021 Monocytes/100 WBC (Bld) 12.1 % 0-10 [facility] Work Phone: Blood platelet mean volumeon 07-23-2021 Platelet mean volume (Bld) [Entitic vol] 9.5 fL 6.2-12.0 [facility] Work Phone: Determination of erythrocyte mean corpuscular volume (MCV)on 07-23-2021 MCV (RBC) [Entitic vol] 94.0 fL 81-99 [facility] Work Phone: Hematocrit Auto (Bld) [Volum e fraction]on 07-23-2021 Hematocrit (Bld) [Volume fraction] 28.2 % 37-47 [facility] Work Phone: [phone] INR in Blood by Coagulation assayon 07-23-2021 INR Coag (Bld) [Relative time] 2.6 {INR} [facility] Work Phone: Laboratory - Chemistry and C hemistry - challengeon 07-23-2021 CO2 [Moles/Vol] 28.0 mmol/L 21.0-32.0 [facility] Work Phone: Magnesium [Mass/Vol] 2.2 mg/dL 1.6-2.6 [facility] Work Phone: [phone] Urea nitrogen/Creatinine [Mass ratio] 21.6 mg/mg 10-20 [facility] Work Phone: Laboratory - Coagulationon 0 07-23-2021 PT Coag (PPP) [Time] 27.5 s 11.7-14.9 [facility] Work Phone: Laboratory - Hematology and Cell countson 07-23-2021 Erythrocyte distribution width (RBC) [Entitic vol] 58.2 fL 35.1-43.9 [facility] Work Phone: Erythrocyte distribution width (RBC) [Ratio] 16.9 % 11.6-14.6 [facility] Work Phone: Immature granulocytes/100 WBC (Bld) 0.100 % 0.0-0.9 [facility] Work Phone: Comment on above: IG% - Immature Granu locytes (promyelocytes, myelocytes and metamyelocytes) > 1% indicates that a LEFT SHIFT is Present. MCH (RBC) [Entitic mass] 30.0 pg 27.0-32.0 [facility] Work Phone: Nucleated RBC/100 WBC (Bld) [Ratio] 0 % 0-5 [facility] Work Phone: MCHC Auto (RBC) [Mass/Vol]on 07-23-2021 MCHC (RBC) [Mass/Vol] 31.9 g/dL 32-36 [facility] Work Phone: No Panel Informationon 07-23 Estimated GFR (MDRD) Amer 112 mL/min >60 [facility] Work Phone: Comment on above: GFR Calc Estimated GFR (MDRD) Non-Af Amer 92 mL/min >60 [facility] Work Phone: Comment on above: Non- GFR Calc Platelets bldon 07-23-2021 Platelets (Bld) [#/Vol] 178 10*3/uL 150-450 [facility] Work Phone: Serum or plasma calcium yonatan urement (mass/volume)on 07-23-2021 Calcium [Mass/Vol] 8.9 mg/dL 8.5-10.1 [facility] Work Phone: Serum or plasma creatinine m easurement (mass/volume)on 07-23-2021 Creatinine [Mass/Vol] 0.65 mg/dL 0.55-1.02 [facility] Work Phone: Comment on above: The validity of the calculated GFR & GFRAA in patients over 70 years has not been determined. Clinical correlation is essential. Serum or plasma urea nitroge n measurement (mass/volume)on 07-23-2021 Urea nitrogen [Mass/Vol] 14 mg/dL 7-18 [facility] Work Phone: Thin prep Papanicolaou smear with manual screeningon 07-23-2021 Thin prep Papanicolaou smear with manual screening 6 5-15 [facility] Work Phone: Absolute lymphocyte counton 07-16-2021 Lymphocytes Auto (Unsp spec) [#/Vol] 1.54 10*3/uL 0.83-4.51 [facility] Work Phone: Basophil percentageon 2021 Basophils/100 WBC (Bld) 0.6 % 0-1 [facility] Work Phone: Chloride [Moles/Vol] 109 mmol/L 98-107 [facility] Work Phone: Eosinophils/100 WBC (Bld) 2.5 % 0-5 [facility] Work Phone: Glucose [Mass/Vol] 66 mg/dL 74-106 [facility] Work Phone: Neutrophils (Bld) [#/Vol] 4.2 10*3/uL 2.0-7.7 [facility] Work Phone: Neutrophils/100 WBC (Bld) 63.4 % 47-70 [facility] Work Phone: Potassium [Moles/Vol] 4.0 mmol/L 3.5-5.1 [facility] Work Phone: Sodium [Moles/Vol] 141 mmol/L 136-145 [facility] Work Phone: WBC (Bld) [#/Vol] 6.7 10*3/uL 4.4-11.0 [facility] Work Phone: Blood erythrocytes count (nu mber/volume)on 07-16-2021 RBC (Bld) [#/Vol] 3.05 10*6/uL 4.2-5.4 [facility] Work Phone: Blood hemoglobin measurement (mass/volume)on 07-16-2021 Hemoglobin (Bld) [Mass/Vol] 9.1 g/dL 12.0-15.0 [facility] Work Phone: Blood lymphocytes/100 leukoc yteson 07-16-2021 Lymphocytes/100 WBC (Bld) 23.1 % 19-41 [facility] Work Phone: Blood monocytes/100 leukocyt eson 07-16-2021 Monocytes/100 WBC (Bld) 10.3 % 0-10 [facility] Work Phone: Blood platelet mean volumeon 07-16-2021 Platelet mean volume (Bld) [Entitic vol] 9.7 fL 6.2-12.0 [facility] Work Phone: Determination of erythrocyte mean corpuscular volume (MCV)on 07-16-2021 MCV (RBC) [Entitic vol] 95.4 fL 81-99 [facility] Work Phone: Hematocrit Auto (Bld) [Volum e fraction]on 07-16-2021 Hematocrit (Bld) [Volume fraction] 29.1 % 37-47 [facility] Work Phone: INR in Blood by Coagulation assayon 07-16-2021 INR Coag (Bld) [Relative time] 1.8 {INR} [facility] Work Phone: Laboratory - Chemistry and C hemistry - challengeon 07-16-2021 CO2 [Moles/Vol] 27.0 mmol/L 21.0-32.0 [facility] Work Phone: [phone] Urea nitrogen/Creatinine [Mass ratio] 25.0 mg/mg 10-20 [facility] Work Phone: Laboratory - Coagulationon 0 07-16-2021 PT Coag (PPP) [Time] 20.7 s 11.7-14.9 [facility] Work Phone: Laboratory - Hematology and Cell countson 07-16-2021 Erythrocyte distribution width (RBC) [Entitic vol] 60.8 fL 35.1-43.9 [facility] Work Phone: [phone] Erythrocyte distribution width (RBC) [Ratio] 17.3 % 11.6-14.6 [facility] Work Phone: Immature granulocytes/100 WBC (Bld) 0.100 % 0.0-0.9 [facility] Work Phone: Comment on above: IG% - Immature Granu locytes (promyelocytes, myelocytes and metamyelocytes) > 1% indicates that a LEFT SHIFT is Present. MCH (RBC) [Entitic mass] 29.8 pg 27.0-32.0 [facility] Work Phone: Nucleated RBC/100 WBC (Bld) [Ratio] 0 % 0-5 [facility] Work Phone: MCHC Auto (RBC) [Mass/Vol]on 07-16-2021 MCHC (RBC) [Mass/Vol] 31.3 g/dL 32-36 [facility] Work Phone: No Panel Informationon 07-16 Estimated GFR (MDRD) Amer 122 mL/min >60 [facility] Work Phone: Comment on above: GFR Calc Estimated GFR (MDRD) Non-Af Amer 101 mL/min >60 [facility] Work Phone: Comment on above: Non- GFR Calc Thyroid Stimulating Hormone (TSH) 2.10 uIU/mL 0.358-3.74 [facility] Work Phone: Platelets bldon 07-16-2021 Platelets (Bld) [#/Vol] 228 10*3/uL 150-450 [facility] Work Phone: Serum or plasma calcium yonatan urement (mass/volume)on 07-16-2021 Calcium [Mass/Vol] 9.0 mg/dL 8.5-10.1 [facility] Work Phone: Serum or plasma creatinine m easurement (mass/volume)on 07-16-2021 Creatinine [Mass/Vol] 0.60 mg/dL 0.55-1.02 [facility] Work Phone: Comment on above: The validity of the calculated GFR & GFRAA in patients over 70 years has not been determined. Clinical correlation is essential. Serum or plasma urea nitroge n measurement (mass/volume)on 07-16-2021 Urea nitrogen [Mass/Vol] 15 mg/dL 7-18 [facility] Work Phone: Thin prep Papanicolaou smear with manual screeningon 07-16-2021 Thin prep Papanicolaou smear with manual screening 5 5-15 [facility] Work Phone: [phone] Absolute lymphocyte counton 07-13-2021 Lymphocytes Auto (Unsp spec) [#/Vol] 1.70 10*3/uL 0.83-4.51 [facility] Work Phone: [phone] Basophil percentageon 2021 Basophils/100 WBC (Bld) 0.7 % 0-1 [facility] Work Phone: [phone] Cholesterol [Mass/Vol] 113 mg/dL <200 [facility] Work Phone: [phone] Comment on above: <200 mg/dL Desirable 200-240 mg/dL Borderline >240 mg/dL High Risk Eosinophils/100 WBC (Bld) 2.9 % 0-5 [facility] Work Phone: [phone] Neutrophils (Bld) [#/Vol] 5.5 10*3/uL 2.0-7.7 [facility] Work Phone: [phone] Neutrophils/100 WBC (Bld) 65.5 % 47-70 [facility] Work Phone: [phone] Triglyceride [Mass/Vol] 95 mg/dL <199 [facility] Work Phone: [phone] Comment on above: The drugs N-Acetylcy steine and Metamizole may falsely depress this assay.Serum Triglycerides Reference Interval Normal <150 mg/dL Borderline high 150 - 199 mg/dL High 200 - 499 mg/dL Very High > or = 500 mg/dL WBC (Bld) [#/Vol] 8.4 10*3/uL 4.4-11.0 [facility] Work Phone: [phone] Blood erythrocytes count (nu mber/volume)on 07-13-2021 RBC (Bld) [#/Vol] 3.14 10*6/uL 4.2-5.4 [facility] Work Phone: [phone] Blood hemoglobin measurement (mass/volume)on 07-13-2021 Hemoglobin (Bld) [Mass/Vol] 9.4 g/dL 12.0-15.0 [facility] Work Phone: Blood lymphocytes/100 leukoc yteson 07-13-2021 Lymphocytes/100 WBC (Bld) 20.3 % 19-41 [facility] Work Phone: Blood monocytes/100 leukocyt eson 07-13-2021 Monocytes/100 WBC (Bld) 10.0 % 0-10 [facility] Work Phone: Blood platelet mean volumeon 07-13-2021 Platelet mean volume (Bld) [Entitic vol] 9.7 fL 6.2-12.0 [facility] Work Phone: [phone] Determination of erythrocyte mean corpuscular volume (MCV)on 07-13-2021 MCV (RBC) [Entitic vol] 94.6 fL 81-99 [facility] Work Phone: Hematocrit Auto (Bld) [Volum e fraction]on 07-13-2021 Hematocrit (Bld) [Volume fraction] 29.7 % 37-47 [facility] Work Phone: INR in Blood by Coagulation assayon 07-13-2021 INR Coag (Bld) [Relative time] 1.4 {INR} [facility] Work Phone: Laboratory - Chemistry and C hemistry - challengeon 07-13-2021 Magnesium [Mass/Vol] 2.2 mg/dL 1.6-2.6 [facility] Work Phone: [phone] Laboratory - Coagulationon 0 07-13-2021 PT Coag (PPP) [Time] 16.4 s 11.7-14.9 [facility] Work Phone: [phone] Laboratory - Hematology and Cell countson 07-13-2021 Erythrocyte distribution width (RBC) [Entitic vol] 58.6 fL 35.1-43.9 [facility] Work Phone: Erythrocyte distribution width (RBC) [Ratio] 17.2 % 11.6-14.6 [facility] Work Phone: Immature granulocytes/100 WBC (Bld) 0.600 % 0.0-0.9 [facility] Work Phone: Comment on above: IG% - Immature Granu locytes (promyelocytes, myelocytes and metamyelocytes) > 1% indicates that a LEFT SHIFT is Present. MCH (RBC) [Entitic mass] 29.9 pg 27.0-32.0 [facility] Work Phone: Nucleated RBC/100 WBC (Bld) [Ratio] 0 % 0-5 [facility] Work Phone: MCHC Auto (RBC) [Mass/Vol]on 07-13-2021 MCHC (RBC) [Mass/Vol] 31.6 g/dL 32-36 [facility] Work Phone: No Panel Informationon 07-13 Thyroid Stimulating Hormone (TSH) 3.09 uIU/mL 0.358-3.74 [facility] Work Phone: Platelets bldon 07-13-2021 Platelets (Bld) [#/Vol] 240 10*3/uL 150-450 [facility] Work Phone: Serum or plasma cholesterol in HDL measurement (mass/volume)on 07-13-2021 Cholesterol in HDL [Mass/Vol] 26 mg/dL >40 [facility] Work Phone: Comment on above: The drugs N-Acetylcy steine and Metamizole may falsely depress this assay. Reference Range HDL <40 mg/dL Low HDL Cholesterol HDL >or= 60 mg/dL High HDL Cholesterol Serum or plasma cholesterol in VLDL measurement (mass/volume)on 07-13-2021 Cholesterol in VLDL [Mass/Vol] 19 mg/dL 5-40 [facility] Work Phone: Serum or plasma low density lipoprotein (LDL) cholesterol measurement (mass/volume)on 07-13-2021 Cholesterol in LDL [Mass/Vol] 68 mg/dL 0-130 [facility] Work Phone: Serum or plasma transthyreti n measurement (mass/volume)on 07-13-2021 Prealbumin [Mass/Vol] 11.5 mg/dL 20.0-40.0 [facility] Work Phone: Whole blood hemoglobin A1c/t otal hemoglobin ratio (mass fraction)on 07-13-2021 HbA1c (Bld) [Mass fraction] 5.0 % 3.8-5.6 [facility] Work Phone: Comment on above: Normal < 5.7 % Predi abetic 5.7 - 6.4 % Diabetic >or= 6.5 % Please note range changes. HBV surface Ab IA Ql (S)on 0 07-05-2021 HBV surface Ag Ql (S) Negative Negative [facility] HEP A AB IGMon 07-05-2021 HAV IgM Ql (S) Negative Negative [facility] HEP B CORE AB IGMon 07-06-19 HBV core IgM Ql (S) Negative Negative [facility] HEP C AB IA W/CONF SCRNon HCV Ab Ql (S) Negative Negative [facility] Absolute lymphocyte counton 07-03-2021 Lymphocytes Auto (Unsp spec) [#/Vol] 0.96 10*3/uL 0.83-4.51 [facility] Work Phone: Basophil percentageon 2021 Basophil percentage 5-10 SEEN /hpf 0-5 [facility] Work Phone: Basophils/100 WBC (Bld) 0.4 % 0-1 [facility] Work Phone: Bilirubin [Mass/Vol] 2.30 mg/dL 0.20-1.00 [facility] Work Phone: Comment on above: For patients on eltr ombopag therapy, use of Dimension [place] TBIL is not recommended. Chloride [Moles/Vol] 106 mmol/L 98-107 [facility] Work Phone: Eosinophils/100 WBC (Bld) 1.4 % 0-5 [facility] Work Phone: Glucose [Mass/Vol] 114 mg/dL 74-106 [facility] Work Phone: Comment on above: Fasting Glucose resu lt from 100 to 125 mg/dL suggests IMPAIRED HOMEOSTASIS per A.D.A. criteria. Neutrophils (Bld) [#/Vol] 7.5 10*3/uL 2.0-7.7 [facility] Work Phone: Neutrophils/100 WBC (Bld) 77.6 % 47-70 [facility] Work Phone: Potassium [Moles/Vol] 4.0 mmol/L 3.5-5.1 [facility] Work Phone: Protein [Mass/Vol] 7.5 g/dL 6.4-8.2 [facility] Work Phone: Sodium [Moles/Vol] 137 mmol/L 136-145 [facility] Work Phone: WBC (Bld) [#/Vol] 9.7 10*3/uL 4.4-11.0 [facility] Work Phone: [phone] Bilirubin Test strip Ql (U)o n 07-03-2021 Bilirubin Ql (U) Negative Negative [facility] Work Phone: Blood erythrocytes count (nu mber/volume)on 07-03-2021 RBC (Bld) [#/Vol] 3.10 10*6/uL 4.2-5.4 [facility] Work Phone: Blood hemoglobin measurement (mass/volume)on 07-03-2021 Hemoglobin (Bld) [Mass/Vol] 9.3 g/dL 12.0-15.0 [facility] Work Phone: Blood lymphocytes/100 leukoc yteson 07-03-2021 Lymphocytes/100 WBC (Bld) 9.9 % 19-41 [facility] Work Phone: Blood monocytes/100 leukocyt eson 07-03-2021 Monocytes/100 WBC (Bld) 10.2 % 0-10 [facility] Work Phone: Blood platelet mean volumeon 07-03-2021 Platelet mean volume (Bld) [Entitic vol] 9.2 fL 6.2-12.0 [facility] Work Phone: Determination of erythrocyte mean corpuscular volume (MCV)on 07-03-2021 MCV (RBC) [Entitic vol] 94.2 fL 81-99 [facility] Work Phone: Direct bilirubinon Bilirubin.direct [Mass/Vol] 1.82 mg/dL 0.00-0.30 [facility] Work Phone: Hematocrit Auto (Bld) [Volum e fraction]on 07-03-2021 Hematocrit (Bld) [Volume fraction] 29.2 % 37-47 [facility] Work Phone: INR in Blood by Coagulation assayon 07-03-2021 INR Coag (Bld) [Relative time] 3.6 {INR} [facility] Work Phone: Ketones Test strip Ql (U)on 07-03-2021 Ketones Ql (U) Negative Negative [facility] Work Phone: [phone] Laboratory - Chemistry and C hemistry - challengeon 07-03-2021 ALP [Catalytic activity/Vol] 143 U/L 45-117 [facility] Work Phone: ALT [Catalytic activity/Vol] 49 U/L 13-56 [facility] Work Phone: CO2 [Moles/Vol] 25.0 mmol/L 21.0-32.0 [facility] Work Phone: Globulin (S) [Mass/Vol] 4.9 g/dL 2.2-4.2 [facility] Work Phone: Lipase [Catalytic activity/Vol] 260 U/L 73-393 [facility] Work Phone: Urea nitrogen/Creatinine [Mass ratio] 12.9 mg/mg 10-20 [facility] Work Phone: Laboratory - Coagulationon 0 07-03-2021 PT Coag (PPP) [Time] 35.3 s 11.7-14.9 [facility] Work Phone: Laboratory - Hematology and Cell countson 07-03-2021 Erythrocyte distribution width (RBC) [Entitic vol] 54.8 fL 35.1-43.9 [facility] Work Phone: Erythrocyte distribution width (RBC) [Ratio] 15.9 % 11.6-14.6 [facility] Work Phone: Immature granulocytes/100 WBC (Bld) 0.500 % 0.0-0.9 [facility] Work Phone: Comment on above: IG% - Immature Granu locytes (promyelocytes, myelocytes and metamyelocytes) > 1% indicates that a LEFT SHIFT is Present. MCH (RBC) [Entitic mass] 30.0 pg 27.0-32.0 [facility] Work Phone: Nucleated RBC/100 WBC (Bld) [Ratio] 0 % 0-5 [facility] Work Phone: MCHC Auto (RBC) [Mass/Vol]on 07-03-2021 MCHC (RBC) [Mass/Vol] 31.8 g/dL 32-36 [facility] Work Phone: Mucus LM Ql (Urine sed)on Mucus Ql (Urine sed) 0 SEEN /hpf [facility] Work Phone: Nitrite Test strip Ql (U)on 07-03-2021 Nitrite Ql (U) Negative Negative [facility] Work Phone: No Panel Informationon 07-03 Estimated Creatinine Clearance Calc 46.12 ml/min [facility] Work Phone: Estimated GFR (MDRD) Amer 81 mL/min >60 [facility] Work Phone: Comment on above: GFR Calc Estimated GFR (MDRD) Non-Af Amer 67 mL/min >60 [facility] Work Phone: Comment on above: Non- GFR Calc Platelets bldon 07-03-2021 Platelets (Bld) [#/Vol] 160 10*3/uL 150-450 [facility] Work Phone: Protein Test strip Ql (U)on 07-03-2021 Protein Ql (U) 15 mg/dl Negative [facility] Work Phone: Serum or plasma albumin yonatan urement (mass/volume)on 07-03-2021 Albumin [Mass/Vol] 2.6 g/dL 3.2-5.0 [facility] Work Phone: Serum or plasma calcium yonatan urement (mass/volume)on 07-03-2021 Calcium [Mass/Vol] 8.7 mg/dL 8.5-10.1 [facility] Work Phone: Serum or plasma creatinine m easurement (mass/volume)on 07-03-2021 Creatinine [Mass/Vol] 0.85 mg/dL 0.55-1.02 [facility] Work Phone: Comment on above: The validity of the calculated GFR & GFRAA in patients over 70 years has not been determined. Clinical correlation is essential. Serum or plasma urea nitroge n measurement (mass/volume)on 07-03-2021 Urea nitrogen [Mass/Vol] 11 mg/dL 7-18 [facility] Work Phone: Squamous epithelial cells de tection in urine sediment by light microscopyon 07-03-2021 Epithelial cells.squamous LM Ql (Urine sed) 0 SEEN /hpf 5-10 [facility] Work Phone: Thin prep Papanicolaou smear with manual screeningon 07-03-2021 Thin prep Papanicolaou smear with manual screening 87 U/L 15-37 [facility] Work Phone: Thin prep Papanicolaou smear with manual screening 6 5-15 [facility] Work Phone: Urine blood detectionon 06-15 RBC Ql (U) 10 /ul Negative [facility] Work Phone: RBC Ql (U) 0-5 SEEN /hpf 0-5 [facility] Work Phone: Urine clarityon 07-03-2021 Clarity (U) Clear Clear [facility] Work Phone: Urine color determinationon 07-03-2021 Color (U) Yellow Yellow [facility] Work Phone: Urine glucose detectionon Glucose Ql (U) Normal mg/dl Normal [facility] Work Phone: Urine leukocyte esterase det ection by dipstickon 07-03-2021 Leukocyte esterase Test strip Ql (U) 500 /ul Negative [facility] Work Phone: Urine pHon 07-03-2021 pH (U) 7.0 [pH] 5.0 - 8.0 [facility] Work Phone: Urine sediment bacteria coun t by microscopy (number/high power field)on 07-03-2021 Bacteria LM.HPF (Urine sed) [#/Area] 2 /[HPF] None Seen [facility] Work Phone: Urine specific gravity measu rementon 07-03-2021 Specific gravity (U) [Rel density] 1.010 1.002-1.030 [facility] Work Phone: Urobilinogen Auto test strip Ql (U)on 07-03-2021 Urobilinogen Ql (U) 1 mg/dl Normal [facility] Work Phone: XR Chest PA and Lateralon IMPRESSION: Mild bibasilar atelectasis. Subtle infection could appear similar but is thought less likely. Sheet Rock Sander: [facility] Transcribe Date/Time: May 17 2021 6:05P Dictated by : SHAN KAY MD This examination was interpreted and the report reviewed and electronically signed by: SHAN KAY MD on May 17 2021 6:07PM [facility] DIVISION OF RADIOLOGY * * [...] acute osseous abnormality. DIVISION OF RADIOLOGY Provider, [facility] - 05/17/2021 * * *Final Report* [...] appear similar but is thought less likely. Sheet Rock Sander: [facility] Transcribe Date/Time: May 17 2021 6:05P Dictated by : SHAN KAY MD This examination was interpreted and the report reviewed and electronically signed by: SHAN KAY MD on May 17 2021 6:07PM EST [facility] Radiology Study observation (narrative) [facility] XR Chest PA and LateralOrder ed By: [facility] Provider on 05-17-2021 [facility] Basic Metabolic Panlon 01-14 Anion gap [Moles/Vol] 7 mmol/L Low 9-[address] [facility] Comment on above: Performed By: #### M G1, BMP, CBC ####[facility] [address] [place] [address] Calcium [Mass/Vol] 8.5 mg/dL Normal 8.5-10.2 [facility] Comment on above: Performed By: #### M G1, BMP, CBC ####[facility] [address] [place] [address] Chloride [Moles/Vol] 110 mmol/L High 97-105 [facility] Comment on above: Performed By: #### M G1, BMP, CBC ####[facility] [address] [place] [address] CO2 [Moles/Vol] 23 mmol/L Normal 22-30 [facility] Comment on above: Performed By: #### M Vanna BMP, CBC ####[facility] [address] [place] [address] Creatinine [Mass/Vol] 0.85 mg/dL Normal 0.58-0.[address] [facility] Comment on above: Performed By: #### M Vanna, BMP, CBC ####[facility] [address] [place] [address] eGFR- Amer. >60 Normal [facility] Comment on above: Performed By: #### M BMP, CBC ####[facility] [address] [place] [address] eGFR-All Other Races >60 Normal [facility] Comment on above: Result Comment: eGFR [...] Performed By: #### M G1, BMP, CBC ####[facility] [address] [place] [address] Glucose [Mass/Vol] 94 mg/dL Normal 74-99 [facility] Comment on above: Result Comment: The [place] Diabetes [employer] (ADA) provides guidance for cutoff [...] Standards of Medical Care in Diabetes 2016, [place] [employer]. Diabetes Care. 2016.39(Suppl 1). Performed By: #### M STEPHAN Prabhakar, CBC ####[facility] [address] [place] [address] Potassium [Moles/Vol] 3.8 mmol/L Normal 3.7-5.[address] [facility] Comment on above: Performed By: #### M STEPHAN Prabhakar, CBC ####[facility] [address] [place] [address] Sodium [Moles/Vol] 140 mmol/L Normal 136-144 [facility] Comment on above: Performed By: #### M STEPHAN Prabhakar, CBC ####[facility] [address] [place] [address] Urea nitrogen [Mass/Vol] 10 mg/dL Normal 7-21 [facility] Comment on above: Performed By: #### M STEPHAN Prabhakar, CBC ####[facility] [address] [place] [address] CBCon 01-14-2021 Absolute nRBC <0.01 Normal <0.01 [facility] Comment on above: Performed By: #### M Vanna BMP, CBC ####[facility] [address] [place] [address] Erythrocyte distribution width (RBC) [Ratio] 16.5 % High 11.5-15.0 [facility] Comment on above: Performed By: #### M Vanna BMP, CBC ####[facility] [address] [place] [address] Hematocrit (Bld) [Volume fraction] 25.5 % Low 36.0-46.0 [facility] Comment on above: Performed By: #### M G1, BMP, CBC ####[facility] [address] [place] [phone] Hemoglobin (Bld) [Mass/Vol] 8.4 g/dL Low 11.5-15.5 [facility] Comment on above: Performed By: #### M G1, BMP, CBC ####[facility] [address] [place] [address] MCH 34.7 pG High 26.0-34.0 [facility] Comment on above: Performed By: #### M Vanna, BMP, CBC ####[facility] [address] [place] [address] MCHC (RBC) [Mass/Vol] 32.9 g/dL Normal 30.5-36.[address] [facility] Comment on above: Performed By: #### M Vanna, BMP, CBC ####[facility] [address] [place] [phone] MCV (RBC) [Entitic vol] 105.4 fL High 80.0-100.0 [facility] Comment on above: Performed By: #### M G1, BMP, CBC ####[facility] [address] [place] [address] Platelet mean volume (Bld) [Entitic vol] 9.8 fL Normal 9.0-12.7 [facility] Comment on above: Performed By: #### M G1, BMP, CBC ####[facility] [address] [place] [phone] Platelets (Bld) [#/Vol] 109 10*3/uL Low 150-400 [facility] Comment on above: Performed By: #### M G1, BMP, CBC ####[facility] [address] RBC (Bld) [#/Vol] 2.42 10*6/uL Low 3.90-5.20 [facility] Comment on above: Performed By: #### M G1, BMP, CBC ####[facility] [address] [place] [phone] WBC (Bld) [#/Vol] 5.89 10*3/uL Normal 3.70-11.00 [facility] Comment on above: Performed By: #### M G1, BMP, CBC ####[facility] [address] [place] [phone] CNDSon 01-14-2021 CNDS HNO ID: [id number] Author: Wendy Bonilla DO Service: Hospital Medicine [...] DO Consulting: Johnny Turk MD Primary Service: [place] [address] REASON FOR HOSPITALIZATION: Rectal Bleed DIAGNOSIS: Principal [...] were placed as previously ordered by her marketing technology specialist to follow up on this and pending at time of discharge. She was provided with referral and number for [facility] and advised to call for an appointment. A Transvaginal ultrasound was obtained and confirmed endometrial thickening of 1.8cm This was reviewed and the patient will follow up with her SPOOLER OPERATOR. She was discharged home in stable [...] FOLLOW-UP: [facility], Follow up SPOOLER OPERATOR for endometrial thickening. Follow up Dr. [...] pre-hospital ac (more content not included)... Normal [facility] Magnesiumon 01-14-2021 Magnesium [Mass/Vol] 2.0 mg/dL Normal 1.7-2.3 [facility] Comment on above: Performed By: #### M G1, BMP, CBC ####[facility] [address] [place] [address] NURSING PROGon 01-14-2021 NURSING PROG HNO ID: [id number] Author: Albania Perez RN Service: ? Author Type: Registered Nurse Type: Nursing Progress Note Filed: 01/14/2021 5:01 PM Note Text: Nursing Progress Note Patient Name: Christian Landrum Patient Location: [place] [id number]- Daily Note:1650-R [facility], [place] home instructions given-verbalized understanding. This note was completed by: Albania Perez [facility] ALLIED HEALTHon 01-13-2021 ALLIED HEALTH HNO ID: [id number] Author: Margy Walker RDMS Service: Radiology Author Type: Business Professor Type: Allied Health Filed: 01/13/2021 3:05 PM [...] Walker RDMS January 13, 2021 3:05 PM [facility] Basic Metabolic Panlon 01-13 Anion gap [Moles/Vol] 8 mmol/L Low 9-[address] [facility] Comment on above: Performed By: #### P T, BMP, CBC ####[facility] [address] [place] [address] Calcium [Mass/Vol] 8.2 mg/dL Low 8.5-10.2 [facility] Comment on above: Performed By: #### P T, BMP, CBC ####[facility] [address] [place] [address] Chloride [Moles/Vol] 106 mmol/L High 97-105 [facility] Comment on above: Performed By: #### P T, BMP, CBC ####[facility] [address] [place] [address] CO2 [Moles/Vol] 20 mmol/L Low 22-30 [facility] Comment on above: Performed By: #### P T, BMP, CBC ####[facility] [address] [place] [address] Creatinine [Mass/Vol] 0.74 mg/dL Normal 0.58-0.[address] [facility] Comment on above: Performed By: #### P T, BMP, CBC ####[facility] [address] [place] [address] eGFR- Amer. >60 [facility] Comment on above: Performed By: #### P T, BMP, CBC ####[facility] [address] [place] [address] eGFR-All Other Races >60 Normal [facility] Comment on above: Result Comment: eGFR [...] reflect actual GFR. Performed By: #### P TSTEPHAN, CBC ####[facility] [address]7438 [address] Glucose [Mass/Vol] 179 mg/dL High 74-99 [facility] Comment on above: Result Comment: The [place] Diabetes Association (ADA) provides guidance for cutoff [...] Standards of Medical Care in Diabetes 2016, [place] [employer]. Diabetes Care. 2016.39(Suppl 1). Performed By: #### P TSTEPHAN, CBC ####[facility] [address] [place] [phone] Potassium [Moles/Vol] 3.8 mmol/L Normal 3.7-5.[address] [facility] Comment on above: Performed By: #### P T BMP, CBC ####[facility] [address] [place] [phone] Sodium [Moles/Vol] 134 mmol/L Low 136-144 [facility] Comment on above: Performed By: #### P TSTEPHAN, CBC ####[facility] [address] [place] [phone] Urea nitrogen [Mass/Vol] 15 mg/dL Normal 7-21 [facility] Comment on above: Performed By: #### P TSTEPHAN, CBC ####[place] [address] CBCon 01-13-2021 Absolute nRBC <0.01 Normal <0.01 [facility] Comment on above: Performed By: #### P TSTEPHAN, CBC ####[place] [address] Erythrocyte distribution width (RBC) [Ratio] 16.6 % High 11.5-15.0 [facility] Comment on above: Performed By: #### P STEPHAN Mcgowan, CBC ####[place] [address] Hematocrit (Bld) [Volume fraction] 24.8 % Low 36.0-46.0 [facility] Comment on above: Performed By: #### P STEPHAN Mcgowan, CBC ####[place] [address] Hemoglobin (Bld) [Mass/Vol] 8.4 g/dL Low 11.5-15.5 [facility] Comment on above: Performed By: #### P TSTEPHAN, CBC ####[place] [address] MCH 35.9 pG High 26.0-34.0 [facility] Comment on above: Performed By: #### P STEPHAN Mcgowan, CBC ####[place] [address] MCHC (RBC) [Mass/Vol] 33.9 g/dL Normal 30.5-36.[address] [facility] Comment on above: Performed By: #### P TSTEPHAN, CBC ####[place] [address] MCV (RBC) [Entitic vol] 106.0 fL High 80.0-100.0 [facility] Comment on above: Performed By: #### P TSTEPHAN, CBC ####[place] [address] Platelet mean volume (Bld) [Entitic vol] 10.2 fL Normal 9.0-12.7 [facility] Comment on above: Performed By: #### P TSTEPHAN, CBC ####[place] [address] Platelets (Bld) [#/Vol] 104 10*3/uL Low 150-400 [facility] Comment on above: Performed By: #### P T, BMP, CBC ####[facility] [address] [place] [address] RBC (Bld) [#/Vol] 2.34 10*6/uL Low 3.90-5.20 [facility] Comment on above: Performed By: #### P T, BMP, CBC ####[facility] [address] [place] [phone] WBC (Bld) [#/Vol] 6.11 10*3/uL Normal 3.70-11.00 [facility] Comment on above: Performed By: #### P T, BMP, CBC ####[facility] [address] [place] [address] CONSULTon 01-13-2021 CONSULT HNO ID: [id number] Author: Johnny Turk MD Service: General Surgery [...] - Arthritis (more content not included)... Normal [facility] Hep B Core Ab, IgMon 021 Hep B Core Ab, IgM Negative Normal Negative [facility] Comment on above: Performed By: #### 5 7021-8 #### [facility] CLIA [id number] [address] Hep B Core Ab,Totalon 2020 Hep B Core Ab,Total Positive Critically abnormal Negative [facility] Comment on above: Result Comment: Resu lt rechecked. Performed By: #### 5 7021-8 #### [facility] CLIA [id number] [address] Hepat.B Vir Ult Qton 021 HBV DNA Ultra Not detected Normal [facility] Comment on above: Result Comment: Refe rence Range: Negative for HBVDNA The linear range of this assay is 10 to 1,000,000,000 IU/mL. Performed By: #### 5 7021-8 #### [facility] CLIA [id number] [address] Hepatitis Be Antibodon 01-13 Hepatitis Be Antibod Negative Normal Negative [facility] Comment on above: Result Comment: This test should only be used in patients with a previously known and/or concurrent positive HBsAg result. Along with HBeAg test, Hepatitis B e antibody test is used for monitoring the natural history of Hepatitis B virus infection and prognostication. Clinical correlation is required. Performed By: #### 5 7021-8 #### [facility] CLIA [id number] [address] [place] [address] [facility] Hepatitis Be Antigenon 01-13 Hepatitis Be Antigen Negative Normal Negative [facility] Comment on above: Performed By: #### 5 7021-8 #### [facility] CLIA [id number] [address] [place] [address] [facility] Protimeon 01-13-2021 PT INR 2.5 High 0.9-1.3 [facility] Comment on above: Result Comment: Maricruz min K Antagonist (VKA) Therapeutic Range: INR 2 to 3 (Target INR of 2.5) Note: For patients treated with VKA drugs, such as warfarin, the [place] [employer] 2012 Guideline recommends [...] Chest 2012, 141:7S-47S Geri RA, et al. [facility] 2017, 70: 252-289 Performed By: #### STEPHAN Diaz, CBC ####[facility] [address] [place] [phone] PT Sec 25.8 sec High 9.7-13.0 [facility] Comment on above: Performed By: #### P STEPHAN Mcgowan, CBC ####[facility] [address] [place] [phone] FEMALE PELVIS TRANSABD LT Don 01-13-2021 FEMALE PELVIS TRANSABD LTD * * *Final Report* * * DATE OF EXAM: Jan 13 2021 3:06PM WAU 1059 - US FEMALE PELVIS TRANSABD LTD [...] visualized transvaginally. Trace free fluid Unremarkable adnexa. [facility] Transcribe Date/Time: Jan 13 2021 6:02P Dictated by : NATA HANEY MD This examination was interpreted and the report reviewed and electronically signed by: NATA HANEY MD on Jan 13 2021 6:07PM EST [id number] [facility] FEMALE PELVIS TRANSVAGon 01-13-2021 [place] FEMALE PELVIS [...] visualized transvaginally. Trace free fluid Unremarkable adnexa. Sheet Rock Sander: GRANT Transcribe Date/Time: Jan 13 2021 6:02P Dictated by : NATA HANEY MD This examination was interpreted and the report reviewed and electronically signed by: NATA HANEY MD on Jan 13 2021 6:07PM EST [id number] Normal [facility] Urine Cultureon 01-13-2021 Bacteria identified Cx Nom (U) Sp. Request/Comment: - Specimen received in preservative Culture Result - <10,000 CFU/ml Lactose positive gram negative bacilli --> ABNORMAL ALERT Insignificant colony count. No further workup. --> ABNORMAL ALERT <10,000 CFU/ml Normal urogenital cy Critically abnormal [facility] Comment on above: Performed By: #### U RCUL ####[facility] [address] [place] [phone] J[address] [place], [place] [phone] APTTon 01-12-2021 aPTT Coag (Bld) [Time] 112.0 s High 23.0-32.4 [facility] Comment on above: Result Comment: Unfr actionated [...] laboratory APTT reagent in use throughout the [facility]. Sample checked for a clot. No call per procedure. 01/12/2021 1541 Performed By: #### C MP, CBCDIF, PTT, MG1, PT ####[place] [address] CBC and Differentialon 01-12 Abs Baso 0.05 k/uL Normal <0.11 [facility] Comment on above: Performed By: #### C MP, CBCDIF, PTT, MG1, PT ####[place] [address] Abs Lajas 0.86 k/uL Normal <0.87 [facility] Comment on above: Performed By: #### C MP, CBCDIF, PTT, MG1, PT ####[place] [address] Abs Neut 5.89 k/uL Normal 1.45-7.50 [facility] Comment on above: Performed By: #### C MP, CBCDIF, PTT, MG1, PT ####[place] [address] Absolute nRBC <0.01 Normal <0.01 [facility] Comment on above: Performed By: #### C MP, CBCDIF, PTT, MG1, PT ####[place] [address] Basophils/100 WBC (Bld) 0.6 % Normal [facility] Comment on above: Performed By: #### C MP, CBCDIF, PTT, MG1, PT ####[place] [address] DTYPE Auto Diff Normal [facility] Comment on above: Performed By: #### C MP, CBCDIF, PTT, MG1, PT ####[place] [address] Eosinophils (Bld) [#/Vol] 0.09 10*3/uL Normal <0.46 [facility] Comment on above: Performed By: #### C MP, CBCDIF, PTT, MG1, PT ####[place] [address] Eosinophils/100 WBC (Bld) 1.0 % Normal [facility] Comment on above: Performed By: #### C MP, CBCDIF, PTT, MG1, PT ####[place] [address] Erythrocyte distribution width (RBC) [Ratio] 16.4 % High 11.5-15.0 [facility] Comment on above: Performed By: #### C MP, CBCDIF, PTT, MG1, PT ####[place] [address] Hematocrit (Bld) [Volume fraction] 27.4 % Low 36.0-46.0 [facility] Comment on above: Performed By: #### C MP, CBCDIF, PTT, MG1, PT ####[place] [address] Hemoglobin (Bld) [Mass/Vol] 9.2 g/dL Low 11.5-15.5 [facility] Comment on above: Performed By: #### C MP, CBCDIF, PTT, MG1, PT ####[place] [address] Lymphocytes (Bld) [#/Vol] 1.89 10*3/uL Normal 1.00-4.00 [facility] Comment on above: Performed By: #### C MP, CBCDIF, PTT, MG1, PT ####[place] [address] Lymphocytes/100 WBC (Bld) 21.5 % Normal [facility] Comment on above: Performed By: #### C MP, CBCDIF, PTT, MG1, PT ####[place] [address] MCH 35.1 pG High 26.0-34.0 [facility] Comment on above: Performed By: #### C MP, CBCDIF, PTT, MG1, PT ####[place] [address] MCHC (RBC) [Mass/Vol] 33.6 g/dL Normal 30.5-36.[address] [facility] Comment on above: Performed By: #### C MP, CBCDIF, PTT, MG1, PT ####[facility] [address] [place] [address] MCV (RBC) [Entitic vol] 104.6 fL High 80.0-100.0 [facility] Comment on above: Performed By: #### C MP, CBCDIF, PTT, MG1, PT ####[facility] [address] [place] [address] Monocytes/100 WBC (Bld) 9.8 % Normal [facility] Comment on above: Performed By: #### C MP, CBCDIF, PTT, MG1, PT ####[facility] [address] [place] [address] Neutrophils/100 WBC (Bld) 67.1 % Normal [facility] Comment on above: Performed By: #### C MP, CBCDIF, PTT, MG1, PT ####[facility] [address] [place] [address] NRBCs 0.0 /100 WBC Normal 0 [facility] Comment on above: Performed By: #### C MP, CBCDIF, PTT, MG1, PT ####[facility] [address] [place] [address] Platelet mean volume (Bld) [Entitic vol] 10.6 fL Normal 9.0-12.7 [facility] Comment on above: Performed By: #### C MP, CBCDIF, PTT, MG1, PT ####[facility] [address] [place] [address] Platelets (Bld) [#/Vol] 126 10*3/uL Low 150-400 [facility] Comment on above: Result Comment: No c lot detected. Performed By: #### C MP, CBCDIF, PTT, MG1, PT ####[facility] [address] [place] [address] RBC (Bld) [#/Vol] 2.62 10*6/uL Low 3.90-5.20 [facility] Comment on above: Performed By: #### C MP, CBCDIF, PTT, MG1, PT ####[facility] Ow[address]1582 [phone] WBC (Bld) [#/Vol] 8.78 10*3/uL Normal 3.70-11.00 [facility] Comment on above: Performed By: #### C MP, CBCDIF, PTT, MG1, PT ####[facility] Wdilavoniy2799 [phone] CT ABD/PEL W IVCONon 021 CT ABD/PEL W IVCON * * *Final Report* * * DATE OF EXAM: Jan 12 2021 4:21PM [facility] 0530 - CT ABD/PEL W IVCON / [...] and/or stent in the RIGHT coronary circulation. Excel Expert (topogram) images: No additional findings. IMPRESSION: Acute cystitis. Cirrhotic liver morphology. Cholelithiasis. Abnormal endometrial thickening to 12 mm in this postmenopausal female. Recommend further evaluation with a female pelvic ultrasound on a nonemergent basis. Acuity: Actionable Findings: Female reproductive tract (pelvis, adnexa) Routing code: WH_1 Recommendation: US FEMALE PELVIS NON-OB NON TORSION ([id number]) Time Frame: at the discretion of the clinical team. Sheet Rock Sander: GRANT Transcribe Date/Time: Jan 12 2021 4:44P Dictated by : VANESA PRICE DO This examination was interpreted and the report reviewed and electronically signed by: VANESA PRICE DO on Jan 12 2021 5:01PM EST [id number] Normal [facility] Comp Metabolic Panelon 01-12 Albumin [Mass/Vol] 3.4 g/dL Low 3.9-4.9 [facility] Comment on above: Performed By: #### C MP, CBCDIF, PTT, MG1, PT ####[facility] G[phone] ALP [Catalytic activity/Vol] 52 U/L Normal 34-123 [facility] Comment on above: Performed By: #### C MP, CBCDIF, PTT, MG1, PT ####[facility] [address] [place] [phone] ALT [Catalytic activity/Vol] 25 U/L Normal 7-38 [facility] Comment on above: Performed By: #### C MP, CBCDIF, PTT, MG1, PT ####[facility] [address]jm[address]286 [phone] Anion gap [Moles/Vol] 12 mmol/L Normal 9-[address] [facility] Comment on above: Performed By: #### C MP, CBCDIF, PTT, MG1, PT ####[facility] [address] [place] [address] AST [Catalytic activity/Vol] 59 U/L High 13-35 [facility] Comment on above: Performed By: #### C MP, CBCDIF, PTT, MG1, PT ####[facility] [address] [place] [address] Bilirubin [Mass/Vol] 1.0 mg/dL Normal 0.2-1.3 [facility] Comment on above: Performed By: #### C MP, CBCDIF, PTT, MG1, PT ####[facility] [address] [place] [address] Calcium [Mass/Vol] 8.9 mg/dL Normal 8.5-10.2 [facility] Comment on above: Performed By: #### C MP, CBCDIF, PTT, MG1, PT ####[facility] [address] [place] [address] Chloride [Moles/Vol] 107 mmol/L High 97-105 [facility] Comment on above: Performed By: #### C MP, CBCDIF, PTT, MG1, PT ####[facility] [address] [place] [address] CO2 [Moles/Vol] 21 mmol/L Low 22-30 [facility] Comment on above: Performed By: #### C MP, CBCDIF, PTT, MG1, PT ####[facility] [address] [place] [address] Creatinine [Mass/Vol] 0.67 mg/dL Normal 0.58-0.[address] [facility] Comment on above: Performed By: #### C MP, CBCDIF, PTT, MG1, PT ####[facility] [address] [place] [address] eGFR- Amer. >60 Normal [facility] Comment on above: Performed By: #### C MP, CBCDIF, PTT, MG1, PT ####[facility] [address] [place] [address] eGFR-All Other Races >60 Normal [facility] Comment on above: Result Comment: eGFR [...] #### C MP, CBCDIF, PTT, MG1, PT ####[facility] F[address]ou7[phone] Glucose [Mass/Vol] 92 mg/dL Normal 74-99 [facility] Comment on above: Result Comment: The [place] Diabetes Association (ADA) provides guidance for cutoff [...] Standards of Medical Care in Diabetes 2016, [place] [employer]. Diabetes Care. 2016.39(Suppl 1). Performed By: #### C MP, CBCDIF, PTT, MG1, PT ####[facility] [address] [place] [phone] Potassium [Moles/Vol] 3.8 mmol/L Normal 3.7-5.[address] [facility] Comment on above: Performed By: #### C MP, CBCDIF, PTT, MG1, PT ####[facility] [address]8374 [phone] Protein [Mass/Vol] 6.0 g/dL Low 6.3-8.0 [facility] Comment on above: Performed By: #### C MP, CBCDIF, PTT, MG1, PT ####[facility] [address] [place] [phone] Sodium [Moles/Vol] 140 mmol/L Normal 136-144 [facility] Comment on above: Performed By: #### C MP, CBCDIF, PTT, MG1, PT ####[facility] [address] [place] [phone] Urea nitrogen [Mass/Vol] 19 mg/dL Normal - [facility] Comment on above: Performed By: #### C MP, CBCDIF, PTT, MG1, PT ####[facility] [address] [place] [phone] Confirm Blood Typeon 021 ABO/RH(D) Positive [facility] Comment on above: Performed By: #### 5 7021-8 #### [facility] CLIA [id number] [address] ED NOTEon 01-12-2021 ED NOTE HNO ID: [id number] Author: Anusha Pabon RN Service: ? Author Type: Registered Nurse Type: ED Notes Filed: 01/12/2021 5:50 PM Note Text: Report called to Marbella bruno. [facility] ED NOTE HNO ID: [id number] Author: Anusha Pabon RN Service: ? Author Type: Registered Nurse Type: ED Notes Filed: 01/12/2021 5:38 PM Note Text: 10 min heads up given [facility] ED NOTE HNO ID: [id number] Author: Miguel Angel Sams Service: ? Author Type: Temporary Staff Accountant and Washing Machine Repairer Type: ED Notes Filed: 01/12/2021 12:05 PM Note Text: Complains of black stools since Friday S/P colonoscopy this past Friday. [facility] ED PROV NOTEon 01-12-2021 ED PROV NOTE HNO ID: [id number] Author: Juan Covarrubias MD Service: ? Author Type: Physician Type: ED Provider Notes Filed: 01/12/2021 2:49 PM Note Text: ED Provider Note Patient Name: Christian Landrum SERVICE DATE: 10/29/21 History Patient presents with: Rectal Bleeding UTI [...] mass on liver - PMR (polymyalgia rheumatica) ([facility]) 2012 - Pure hypercholesterolemia - Snoring - [...] of Onset - other ( age 60 [place]) Mother hypertension and TB - other (pancreatic [...] grandmother S (more content not included)... Normal [facility] Expedited [id number] 01-13-20 21 SARS-CoV-2 (COVID-19) RNA DEMARCUS+probe Ql (Unsp spec) UPPER RESPIRATORY TRACT SWAB Normal [facility] Comment on above: Performed By: #### E XCOVD #### [facility] [address] [facility] [phone] SARS-CoV-2 (COVID-19) RNA DEMARCUS+probe Ql (Unsp spec) Negative for COVID19 (SARS CoV2) by RT-PCR or equivalent method. Normal Negative for COVID19 (SARS CoV2) by RT-PCR or equivalent method. [facility] Comment on above: Result Comment: This test has been authorized by FDA under an Emergency Use Authorization (EUA). Performed By: #### E XCOVD #### [facility] [address] [facility] [phone] HISTORY PHYSICALon HISTORY PHYSICAL HNO ID: [id number] Author: Selma Shepherd DO Service: Hospital Medicine Author Type: Physician Type: HANDP Filed: 01/12/2021 8:56 PM Note Text: HOSPITAL MEDICINE HISTORY AND PHYSICAL PCP: Galina Iraheta MD NIGHT AND WEEKEND COVERAGE: [facility]: Days: [phone], please page attending physician. Nights: [phone], please page [place] [facility] Night coverage pager [phone]. SUBJECTIVE Chief Complaint: Rectal bleeding HPI: Ms. [...] 10/06/2007 Right (more content not included)... Normal [facility] Magnesiumon 01-12-2021 Magnesium [Mass/Vol] 2.0 mg/dL Normal 1.7-2.3 [facility] Comment on above: Performed By: #### C MP, CBCDIF, PTT, MG1, PT ####[facility] [address] [place], [place] [phone] NT Pro BNPon 01-12-2021 PRO B Natr Peptide 116 pg/mL Normal <450 [facility] Comment on above: Performed By: #### N TBNP ####[facility] [address] [place] [phone] NURSING PROGon 01-12-2021 NURSING PROG HNO ID: [id number] Author: Albania Perez RN Service: ? Author Type: Registered Nurse Type: Nursing Progress Note Filed: 01/12/2021 6:33 PM Note Text: Nursing Progress Note Patient Name: Christian Landrum Patient Location: [facility]/[id number]- Daily Note:1830-received pt from ED,no acute distress noted,on RA,oriented to the room,call light within reach. This note was completed by: Albania Perez Normal [facility] Protimeon 01-12-2021 PT INR 2.9 High 0.9-1.3 [facility] Comment on above: Result Comment: Maricruz min K Antagonist (VKA) Therapeutic Range: INR 2 to 3 (Target INR of 2.5) Note: For patients treated with VKA drugs, such as warfarin, the [place] [employer] 2012 Guideline recommends [...] GH, et al. Chest 2012, 141:7S-47S Geri LYNCH, et al. [facility] 2017, 70: 252-289 Performed By: #### C MP, CBCDIF, PTT, MG1, PT ####[facility] [address] [place] [address] PT Sec 28.7 sec High 9.7-13.0 [facility] Comment on above: Performed By: #### C MP, CBCDIF, PTT, MG1, PT ####[facility] [address] [place] [address] Troponin Ton 01-12-2021 Troponin T <0.010 Normal 0.000-0.029 [facility] Comment on above: Performed By: #### T NT ####[facility] [address] [place] [address] Type and Screenon 01-12-2021 ABO/RH(D) Positive Normal [facility] Comment on above: Performed By: #### 5 7021-8 #### [facility] CLIA [id number] [address] [place] [address] [facility] Urinalysison 01-12-2021 Bilirubin, Urine Negative Normal Negative [facility] Comment on above: Performed By: #### U A, UAMIC ####[facility] [address] [place] [address] Clarity (U) Clear Normal Clear [facility] Comment on above: Performed By: #### U A, UAMIC ####[place] [address] Color (U) Yellow Normal Yellow [facility] Comment on above: Performed By: #### U A, UAMIC ####[facility] [address] [place] [address] Glucose Ql (U) Negative Normal Negative [facility] Comment on above: Performed By: #### U A, UAMIC ####[facility] [address] [place] [address] Hemoglobin/Blood,Ur 2+ Critically abnormal Negative [facility] Comment on above: Performed By: #### U A, UAMIC ####[place] [address] Ketones Ql (U) Negative Normal Negative [facility] Comment on above: Performed By: #### U A, UAMIC ####[facility] [address] [place] [address] Leukest 2+ Critically abnormal Negative [facility] Comment on above: Performed By: #### U A, UAMIC ####[facility] [address] [place] [address] Nitrite Ql (U) Negative Normal Negative [facility] Comment on above: Performed By: #### U A, UAMIC ####[facility] [address] [place] [address] pH (U) 6.5 [pH] Normal 5.0-8.0 [facility] Comment on above: Performed By: #### U A UAMIC ####[facility] [address] [place] [address] Protein, Urine Negative Normal Negative [facility] Comment on above: Performed By: #### U A UAMIC ####[facility] [address] [place] [address] Specific [place], Ur 1.010 Normal 1.005-1.[address] [facility] Comment on above: Performed By: #### U A UAMIC ####[facility] [address] [place] [address] Urobilinogen Qn (U) 0.2 {Valentín'U}/dL Normal 0.2-1.0 [facility] Comment on above: Performed By: #### U A UAMIC ####[facility] [address] [place] [address] Urine Microscopic (FOR LAB U SE ONLY)on 01-12-2021 Cast SEE COMMENT Normal 0 [facility] Comment on above: Result Comment: 0 Performed By: #### U A UAMIC ####[facility] [address] [place] [address] Epithelial cells LM Ql (Urine sed) SEE COMMENT Normal [facility] Comment on above: Result Comment: 0-5 Squamous Epithelial Cells Performed By: #### U A, UAMIC ####[facility] [address] [place] [address] RBC 5-10 Critically abnormal 0-3 [facility] Comment on above: Performed By: #### U A, UAMIC ####[facility] [address] [place] [address] WBC 5-10 Critically abnormal 0-5 [facility] Comment on above: Performed By: #### U A, UAMIC ####[facility] [address] [place] [phone] NM CARDIAC PERF STRESS/PHARM on 01-10-2021 NM CARDIAC PERF STRESS/PHARM * * *Final Report* * * DATE OF EXAM: Jan 10 2021 11:30AM HEATHER 0006 - NM CARDIAC PERF STRESS/PHARM / PROCEDURE REASON: multiple diagnoses * * * * Physician Interpretation * * * * Stress [employer] Caser Report: [facility] Date of service: 01/10/2021 9:33:53 AM [...] 60 minutes later. See administered doses below. [facility] Date of service: 01/10/2021 9:33:53 AM [...] unchanged with stress. Final Stress ECG Report: [facility] Date of service: 01/10/2021 9:33:53 AM Ordering physician: CECILIO IBARRA Specialist: Vira Odonnell Cartographic Aide: Lisa Lemus Stress ECG interpreting physician: Amari [...] 125/48 mmHg. The double product achieved was [id number]. Indication: Dyspnea on exertion Medical History and [...] 52 +----+--+---+---+ +-----+ (more content not included)... [facility] 01-09-2021 INGE Telephone ([facility]) CHRISTIAN LANDRUM ([id number]) 1935 F Date Time Provider Department 01/09/21 LISA LEMUS [facility] During your visit today, we recorded the [...] Fully Assessed Reason for Visit: Reminder Call [4649] Prescriptions as of 01/09/2021 - omeprazole (PRILOSEC) [...] BY MOUTH EVERY DAY - glucosamine/msm/chondroitin A (VHVJOIVZZPS-REOPVN-YWA ORAL) Take 1 capsule by mouth once [...] mg injection (BENADRYL) - benzocaine 20% 1 [place] (TOPEX) Meds Comments as of 12/27/2016: Problem List As Of Date 01/09 (more content not included)... Normal [facility] XR Chest PA and Lateralon IMPRESSION: Mild bibasilar atelectasis/scarring. Sheet Rock Sander: PSCB Transcribe Date/Time: Nov 27 2020 4:34P Dictated by : DUC ZHONG MD This examination was interpreted and the report reviewed and electronically signed by: DUC ZHONG MD on Nov 27 2020 4:35PM [facility] DIVISION OF RADIOLOGY * * [...] the thoracic spine. DIVISION OF RADIOLOGY Provider, Sj Fatou ramirez [place] - 11/27/2020 * * *Final Report* * [...] thoracic spine. IMPRESSION IMPRESSION: Mild bibasilar atelectasis/scarring. Sheet Rock Sander: GRANT Transcribe Date/Time: Nov 27 2020 4:34P Dictated by : DUC ZHONG MD This examination was interpreted and the report reviewed and electronically signed by: DUC ZHONG MD on Nov 27 2020 4:35PM EST [facility] Radiology Study observation (narrative) [facility] XR Chest PA and LateralOrder ed By: Ccf Provider on 11-27-2020 [facility] XR Chest PA and Lateralon IMPRESSION: No acute radiographic abnormality. Sheet Rock Sander: GRANT Transcribe Date/Time: May 05 2020 3:09P Dictated by : ALEJO GORDON MD This examination was interpreted and the report reviewed and electronically signed by: ALEJO GORDON MD on May 05 2020 3:20PM [facility] DIVISION OF RADIOLOGY * * [...] tissues: Unremarkable. DIVISION OF RADIOLOGY Provider, Sj Lainez [facility] - 05/05/2020 * * *Final Report* [...] Unremarkable. IMPRESSION IMPRESSION: No acute radiographic abnormality. Sheet Rock Sander: PSCB Transcribe Date/Time: May 05 2020 3:09P Dictated by : ALEJO GORDON MD This examination was interpreted and the report reviewed and electronically signed by: ALEJO GORDON MD on May 05 2020 3:20PM EST [facility] Radiology Study observation (narrative) [facility] XR Chest PA and LateralOrder ed By: Cc Provider on 05-05-2020 [facility] BD DXA - AXIAL SKELETONon BD DXA - AXIAL SKELETON Final Report DATE OF EXAM: Oct 20 2019 11:23AM LDX 0804 - BD DXA - AXIAL SKELETON / PROCEDURE REASON: multiple diagnoses Physician Interpretation EXAM TITLE: BONE MINERAL DENSITOMETRY COMPARISON:None CLINICAL INDICATION/HISTORY: Postmenopausal TECHNIQUE: DXA Hitchins-Scalix v,11.4 examination was performed on the lumbar [...] at high risk for accelerated bone loss). Sheet Rock Sander: GRANT Transcribe Date/Time: Oct 21 2019 11:35A Dictated by : IVORY BENAVIDES MD This examination was interpreted and the report reviewed and electronically signed by: IVORY BENAVIDES MD on Oct 21 2019 11:36AM EST Normal [facility] Culture, urine Bacteria identified Cx Nom (U) Culture exhibits no growth. [facility] Work Phone: No Panel Information [facility] Vital Signs Date Time Vital Sign Value Performing Clinician Facility 11-22-2024 11:22-0400 Body height 162.[address] Galina Iraheta MD Work Phone: [facility] 11-22-2024 11:22-0400 Body mass index (BMI) [Ratio] 29.7 kg/m2 Dr. Galina Iraheta MD Work Phone: 0(267)[phone] [place] [address] 11-22-2024 11:22-0400 Body temperature 98.5 [degF] Dr. Galina Iraheta MD Work Phone: 7(544)019-830204 [place] [address] 11-22-2024 11:22-0400 Body weight 78.[address] Galina Iraheta MD Work Phone: 0(013)865-560204 [place] [address] 11-22-2024 11:22-0400 Diastolic blood pressure 74 mm[Hg] Dr. Galina Iraheta MD Work Phone: 3(295)122-580704 [place] [address] 11-22-2024 11:22-0400 Heart rate 72 /min Dr. Galina Iraheta MD Work Phone: 5(456)442-647904 [place] [address] 11-22-2024 11:22-0400 Respiratory rate 16 /min Dr. Galina Iraheta MD Work Phone: 9(966)104-995004 [place] [address] 11-22-2024 11:22-0400 SaO2% (BldA) [Mass fraction] 95 % Dr. Galina Iraheta MD Work Phone: 7(206)991-250604 [place] [address] 11-22-2024 11:22-0400 Systolic blood pressure 147 mm[Hg] Dr. Galina Iraheta MD Work Phone: 3(063)771-079804 [place] [address] 10-22-2024 13:55-0400 Body height 162.[address] Galina Iraheta MD Work Phone: 8(271)208-319604 [place] [address] 10-22-2024 13:55-0400 Body mass index (BMI) [Ratio] 30.4 kg/m2 Dr. Galina Iraheta MD Work Phone: 3(768)461-491404 [place] [address] 10-22-2024 13:55-0400 Body weight 80.[address] Galina Iraheta MD Work Phone: 1(044)798-813704 [place] [address] 09-21-2024 13:31-0400 Body temperature 96.91 [degF] Cassidy Arreola APRN.CNP Work Phone: 3(009)[phone] [place] [address] 09-21-2024 13:31-0400 Diastolic blood pressure 64 mm[Hg] Cassidy Blackmonenter PATHOLOGY LABORATORY AIDE.[employer] Work Phone: [facility] 09-21-2024 13:31-0400 Heart rate 75 /min Cassidy Arreola PATHOLOGY LABORATORY AIDE.[employer] Work Phone: [facility] 09-21-2024 13:31-0400 SaO2% (BldA) [Mass fraction] 97 % Cassidy Arreola PATHOLOGY LABORATORY AIDE.[employer] Work Phone: [facility] 09-21-2024 13:31-0400 Systolic blood pressure 130 mm[Hg] Cassidy Arreola PATHOLOGY LABORATORY AIDE.[employer] Work Phone: [facility] 09-14-2024 07:57-0400 Body temperature 97.6 [degF] Dr. Galina Iraheta MD Work Phone: 1([phone] [place] [address] 09-14-2024 07:57-0400 Diastolic blood pressure 75 mm[Hg] Dr. Galina Iraheta MD Work Phone: 8(951)[phone] [place] [address] 09-14-2024 07:57-0400 Heart rate 82 /min Dr. Galina Iraheta MD Work Phone: 2(019)904-211404 [place] [address] 09-14-2024 07:57-0400 Respiratory rate 18 /min Dr. Galina Iraheta MD Work Phone: 6(540)682-141468 [place] [address] 09-14-2024 07:57-0400 SaO2% (BldA) [Mass fraction] 96 % Dr. Galina Iraheta MD Work Phone: 8(147)187-698468 [place] [address] 09-14-2024 07:57-0400 Systolic blood pressure 138 mm[Hg] Dr. Galina Iraheta MD Work Phone: 1(968)964-458704 [place] [address] 09-14-2024 05:45-0400 Body height 162.[address] Galina Iraheta MD Work Phone: 9(099)222-704404 [place] [address] 09-14-2024 05:45-0400 Body mass index (BMI) [Ratio] 30.4 kg/m2 Dr. Galina Iraheta MD Work Phone: 1(029)217-693868 [place] [address] 09-14-2024 05:45-0400 Body weight 80.[address] Galina Iraheta MD Work Phone: 1(909)002-971404 [place] [address] 09-07-2024 15:01-0400 Body temperature 97.4 [degF] Dr. Galina Iraheta MD Work Phone: 3(529)986-524304 [place] [address] 09-07-2024 15:01-0400 Diastolic blood pressure 75 mm[Hg] Dr. Galina Iraheta MD Work Phone: 7(098)622-228704 [place] [address] 09-07-2024 15:01-0400 Heart rate 71 /min Dr. Galina Iraheta MD Work Phone: 3(273)229-408304 [place] [address] 09-07-2024 15:01-0400 Respiratory rate 18 /min Dr. Galina Iraheta MD Work Phone: 5(196)676-123904 [place] [address] 09-07-2024 15:01-0400 SaO2% (BldA) [Mass fraction] 95 % Dr. Galina Iraheta MD Work Phone: 6(532)082-451104 [place] [address] 09-07-2024 15:01-0400 Systolic blood pressure 164 mm[Hg] Dr. Galina Iraheta MD Work Phone: 4(468)856-426304 [place] [address] 09-03-2024 14:12-0400 Body height 165.[address] Galina Iraheta MD Work Phone: 1(758)766-208604 [place] [address] 08-18-2024 14:34-0400 Body height 165.[address] Galina Iraheta MD Work Phone: 1(512)126-064404 [place] [address] 08-18-2024 14:34-0400 Body mass index (BMI) [Ratio] 29.1 kg/m2 Dr. Galina Iraheta MD Work Phone: 6(267)702-323804 [place] [address] 08-18-2024 14:34-0400 Body weight 79.[address] Galina Iraheta MD Work Phone: 1(458)709-864804 [place] [address] 08-13-2024 13:10-0400 Body height 165.[address] Galina Iraheta MD Work Phone: 8(838)584-479804 [place] [address] 03-12-2024 14:00-0500 Body temperature 98.91 [degF] Treatment Wstr Work Phone: [facility] 03-12-2024 14:00-0500 Diastolic blood pressure 73 mm[Hg] Treatment Wstr Work Phone: [facility] 03-12-2024 14:00-0500 Heart rate 68 /min Treatment Wstr Work Phone: [facility] 03-12-2024 14:00-0500 Systolic blood pressure 135 mm[Hg] Treatment Wstr Work Phone: [facility] 02-27-2024 14:58-0500 Body mass index (BMI) [Ratio] 31.12 kg/m2 Treatment Wstr Work Phone: [facility] 02-27-2024 14:58-0500 Body temperature 98.6 [degF] Treatment Wstr Work Phone: [facility] 02-27-2024 14:58-0500 Body weight 84.82 kg Treatment Wstr Work Phone: [facility] 02-27-2024 14:58-0500 Diastolic blood pressure 78 mm[Hg] Treatment Wstr Work Phone: [facility] 02-27-2024 14:58-0500 Heart rate 84 /min Treatment Wstr Work Phone: [facility] 02-27-2024 14:58-0500 SaO2% (BldA) [Mass fraction] 97 % Treatment Wstr Work Phone: [facility] 02-27-2024 14:58-0500 Systolic blood pressure 132 mm[Hg] Treatment Wstr Work Phone: [facility] 02-24-2024 14:01-0500 Body mass index (BMI) [Ratio] 31.12 kg/m2 Cassidy Arreola APRN.[employer] Work Phone: [facility] 02-24-2024 14:01-0500 Body temperature 98.49 [degF] Cassidy Arreola APRN[employer] Work Phone: [facility] 02-24-2024 14:01-0500 Body weight 84.82 kg Cassidy Arreola PATHOLOGY LABORATORY AIDE[employer] Work Phone: [facility] 02-24-2024 14:01-0500 Diastolic blood pressure 73 mm[Hg] Cassidy Arreola PATHOLOGY LABORATORY AIDE[employer] Work Phone: [facility] 02-24-2024 14:01-0500 Heart rate 87 /min Cassidy Arreola PATHOLOGY LABORATORY AIDE[employer] Work Phone: [facility] 02-24-2024 14:01-0500 SaO2% (BldA) [Mass fraction] 97 % Cassidy Arreola PATHOLOGY LABORATORY AIDE[employer] Work Phone: [facility] 02-24-2024 14:01-0500 Systolic blood pressure 125 mm[Hg] Cassidy Arreola PATHOLOGY LABORATORY AIDE[employer] Work Phone: [facility] 02-24-2024 13:20-0500 Body mass index (BMI) [Ratio] 31.12 kg/m2 Lab[facility]Port [facility]str Work Phone: [facility] 02-24-2024 13:20-0500 Body weight 84.82 kg Lab[facility]Port [facility]str Work Phone: [facility] 01-28-2024 11:06-0500 Body mass index (BMI) [Ratio] 30.41 kg/m2 Treatment Wstr Work Phone: [facility] 01-28-2024 11:06-0500 Body temperature 97.59 [degF] Treatment Wstr Work Phone: [facility] 01-28-2024 11:06-0500 Body weight 82.9 kg Treatment Wstr Work Phone: [facility] 01-28-2024 11:06-0500 Diastolic blood pressure 66 mm[Hg] Treatment Wstr Work Phone: [facility] 01-28-2024 11:06-0500 Heart rate 79 /min Treatment Wstr Work Phone: [facility] 01-28-2024 11:06-0500 Respiratory rate 18 /min Treatment Wstr Work Phone: [facility] 01-28-2024 11:06-0500 SaO2% (BldA) [Mass fraction] 96 % Treatment Wstr Work Phone: [facility] 01-28-2024 11:06-0500 Systolic blood pressure 124 mm[Hg] Treatment Wstr Work Phone: [facility] 12-11-2023 08:55-0400 Body temperature 98.01 [degF] Treatment Wstr Work Phone: [facility] 12-11-2023 08:55-0400 Diastolic blood pressure 68 mm[Hg] Treatment Wstr Work Phone: [facility] 12-11-2023 08:55-0400 Heart rate 78 /min Treatment Wstr Work Phone: [facility] 12-11-2023 08:55-0400 Respiratory rate 14 /min Treatment Wstr Work Phone: [facility] 12-11-2023 08:55-0400 SaO2% (BldA) [Mass fraction] 98 % Treatment Wstr Work Phone: [facility] 12-11-2023 08:55-0400 Systolic blood pressure 126 mm[Hg] Treatment Wstr Work Phone: [facility] 12-04-2023 08:11-0400 Body temperature 98.4 [degF] Treatment Wstr Work Phone: [facility] 12-04-2023 08:11-0400 Diastolic blood pressure 71 mm[Hg] Treatment Wstr Work Phone: [facility] 12-04-2023 08:11-0400 Heart rate 74 /min Treatment Wstr Work Phone: [facility] 12-04-2023 08:11-0400 Respiratory rate 16 /min Treatment Wstr Work Phone: [facility] 12-04-2023 08:11-0400 Systolic blood pressure 115 mm[Hg] Treatment Wstr Work Phone: [facility] 10-09-2023 10:49-0400 Body mass index (BMI) [Ratio] 30.35 kg/m2 Treatment Wstr Work Phone: [facility] 10-09-2023 10:49-0400 Body temperature 98.2 [degF] Treatment Wstr Work Phone: [facility] 10-09-2023 10:49-0400 Body weight 82.74 kg Treatment Wstr Work Phone: [facility] 10-09-2023 10:49-0400 Diastolic blood pressure 70 mm[Hg] Treatment Wstr Work Phone: [facility] 10-09-2023 10:49-0400 Heart rate 94 /min Treatment Wstr Work Phone: [facility] 10-09-2023 10:49-0400 Respiratory rate 16 /min Treatment Wstr Work Phone: [facility] 10-09-2023 10:49-0400 SaO2% (BldA) [Mass fraction] 97 % Treatment Wstr Work Phone: [facility] 10-09-2023 10:49-0400 Systolic blood pressure 142 mm[Hg] Treatment Wstr Work Phone: [facility] 09-12-2023 11:10-0400 Body temperature 97.81 [degF] Treatment Wstr Work Phone: [facility] 09-12-2023 11:10-0400 Diastolic blood pressure 61 mm[Hg] Treatment Wstr Work Phone: [facility] 09-12-2023 11:10-0400 Heart rate 90 /min Treatment Wstr Work Phone: [facility] 09-12-2023 11:10-0400 Respiratory rate 16 /min Treatment Wstr Work Phone: [facility] 09-12-2023 11:10-0400 Systolic blood pressure 136 mm[Hg] Treatment Wstr Work Phone: [facility] 08-28-2023 11:00-0400 Body temperature 98.8 [degF] Treatment Wstr Work Phone: [facility] 08-28-2023 11:00-0400 Diastolic blood pressure 56 mm[Hg] Treatment Wstr Work Phone: [facility] 08-28-2023 11:00-0400 Heart rate 86 /min Treatment Wstr Work Phone: [facility] 08-28-2023 11:00-0400 Systolic blood pressure 130 mm[Hg] Treatment Wstr Work Phone: [facility] 08-19-2023 11:01-0400 Body temperature 98.71 [degF] Cassidy Arreola PATHOLOGY LABORATORY AIDE[employer] Work Phone: [facility] 08-19-2023 11:01-0400 Diastolic blood pressure 66 mm[Hg] Cassidy Arreola PATHOLOGY LABORATORY AIDE[employer] Work Phone: [facility] 08-19-2023 11:01-0400 Heart rate 87 /min Cassidy Arreola PATHOLOGY LABORATORY AIDE[employer] Work Phone: [facility] 08-19-2023 11:01-0400 SaO2% (BldA) [Mass fraction] 97 % Cassidy Arreola PATHOLOGY LABORATORY AIDE[employer] Work Phone: [facility] 08-19-2023 11:01-0400 Systolic blood pressure 131 mm[Hg] Cassidy Arreola PATHOLOGY LABORATORY AIDE[employer] Work Phone: [facility] 07-15-2023 14:28-0400 Body height 165.1 cm Vikash Sylvester PATHOLOGY LABORATORY AIDE[employer] Work Phone: [facility] 07-15-2023 14:28-0400 Body mass index (BMI) [Ratio] 29.79 kg/m2 Vikash Sylvester PATHOLOGY LABORATORY AIDE[employer] Work Phone: [facility] 07-15-2023 14:28-0400 Body weight 81.19 kg Vikash Sylvester PATHOLOGY LABORATORY AIDE[employer] Work Phone: [facility] 07-15-2023 14:28-0400 Diastolic blood pressure 84 mm[Hg] Vikash Sylvester PATHOLOGY LABORATORY AIDE[employer] Work Phone: [facility] 07-15-2023 14:28-0400 Systolic blood pressure 122 mm[Hg] Vikash Sylvester PATHOLOGY LABORATORY AIDE[employer] Work Phone: [facility] 07-04-2023 11:28-0400 Body weight 80.92 kg Thalia Monterroso MD Work Phone: [facility] 07-04-2023 11:28-0400 Diastolic blood pressure 65 mm[Hg] Thalia Monterroso MD Work Phone: [facility] 07-04-2023 11:28-0400 Heart rate 80 /min Thalia Monterroso MD Work Phone: [facility] 07-04-2023 11:28-0400 Systolic blood pressure 141 mm[Hg] Thalia Monterroso MD Work Phone: [facility] 06-16-2023 14:16-0400 Body weight 82.1 kg Cecilio Ibarra DO Work Phone: [facility] 06-16-2023 14:16-0400 Diastolic blood pressure 68 mm[Hg] Cecilio Ibarra DO Work Phone: [facility] 06-16-2023 14:16-0400 Heart rate 79 /min Cecilio Ibarra DO Work Phone: [facility] 06-16-2023 14:16-0400 SaO2% (BldA) [Mass fraction] 96 % Cecilio Ibarra DO Work Phone: [facility] 06-16-2023 14:16-0400 Systolic blood pressure 126 mm[Hg] Cecilio Ibarra DO Work Phone: [facility] 04-07-2023 13:01-0500 Body height 165.[address] Galina Iraheta Work Phone: [facility] 02-11-2023 10:15-0500 Body temperature 97.9 [degF] Cassidy Arreola PATHOLOGY LABORATORY AIDE[employer] Work Phone: [facility] 02-11-2023 10:15-0500 Body weight 80.74 kg Cassidy Arreola PATHOLOGY LABORATORY AIDE[employer] Work Phone: [facility] 02-11-2023 10:15-0500 Diastolic blood pressure 70 mm[Hg] Cassidy Arreola PATHOLOGY LABORATORY AIDE[employer] Work Phone: [facility] 02-11-2023 10:15-0500 Heart rate 62 /min Cassidy Arreola PATHOLOGY LABORATORY AIDE[employer] Work Phone: [facility] 02-11-2023 10:15-0500 SaO2% (BldA) [Mass fraction] 99 % Cassidy Arreola PATHOLOGY LABORATORY AIDE[employer] Work Phone: [facility] 02-11-2023 10:15-0500 Systolic blood pressure 124 mm[Hg] Cassidy Arreola PATHOLOGY LABORATORY AIDE[employer] Work Phone: [facility] 12-13-2022 14:31-0400 Body height 167.6 cm Juliet Gaffney PATHOLOGY LABORATORY AIDE[employer] Work Phone: [facility] 12-13-2022 14:31-0400 Body weight 79.38 kg Juliet Gaffney PATHOLOGY LABORATORY AIDE[employer] Work Phone: [facility] 12-13-2022 14:31-0400 Diastolic blood pressure 60 mm[Hg] Juliet Gaffney PATHOLOGY LABORATORY AIDE[employer] Work Phone: [facility] 12-13-2022 14:31-0400 Heart rate 68 /min Juliet Gaffney PATHOLOGY LABORATORY AIDE[employer] Work Phone: [facility] 12-13-2022 14:31-0400 SaO2% (BldA) [Mass fraction] 97 % Juliet Gaffney PATHOLOGY LABORATORY AIDE[employer] Work Phone: [facility] 12-13-2022 14:31-0400 Systolic blood pressure 130 mm[Hg] Juliet Gaffney PATHOLOGY LABORATORY AIDE[employer] Work Phone: [facility] 09-05-2022 09:20-0400 Body height 167.6 cm Cecilio Ibarra DO Work Phone: [facility] 09-05-2022 09:20-0400 Body weight 78.02 kg Cecilio Ibarra DO Work Phone: [facility] 09-05-2022 09:20-0400 Diastolic blood pressure 64 mm[Hg] Cecilio Ibarra DO Work Phone: [facility] 09-05-2022 09:20-0400 Heart rate 69 /min Cecilio Ibarra DO Work Phone: [facility] 09-05-2022 09:20-0400 Systolic blood pressure 124 mm[Hg] Cecilio Ibarra DO Work Phone: [facility] 08-27-2022 11:27-0400 Body temperature 98.4 [degF] [place] Arreola PATHOLOGY LABORATORY AIDE[employer] Work Phone: [facility] 08-27-2022 11:27-0400 Body weight 76.66 kg [place] Arreola PATHOLOGY LABORATORY AIDE[employer] Work Phone: [facility] 08-27-2022 11:27-0400 Diastolic blood pressure 56 mm[Hg] Cassidy Arreola PATHOLOGY LABORATORY AIDE[employer] Work Phone: [facility] 08-27-2022 11:27-0400 Heart rate 73 /min Cassidy Arreola PATHOLOGY LABORATORY AIDE[employer] Work Phone: [facility] 08-27-2022 11:27-0400 SaO2% (BldA) [Mass fraction] 96 % Cassidy Arreola PATHOLOGY LABORATORY AIDE[employer] Work Phone: [facility] 08-27-2022 11:27-0400 Systolic blood pressure 116 mm[Hg] [place] Arreola PATHOLOGY LABORATORY AIDE[employer] Work Phone: [facility] 06-05-2022 11:03-0400 Body temperature 97.81 [degF] Cassidy Arreola PATHOLOGY LABORATORY AIDE[employer] Work Phone: [facility] 06-05-2022 11:03-0400 Body weight 77.34 kg [place] Arreola PATHOLOGY LABORATORY AIDE[employer] Work Phone: [facility] 06-05-2022 11:03-0400 Diastolic blood pressure 54 mm[Hg] Cassidy Blackmonenter PATHOLOGY LABORATORY AIDE[employer] Work Phone: [facility] 06-05-2022 11:03-0400 Heart rate 74 /min Cassidy Blackmonenter PATHOLOGY LABORATORY AIDE[employer] Work Phone: [facility] 06-05-2022 11:03-0400 SaO2% (BldA) [Mass fraction] 97 % Cassidy Blackmonenter PATHOLOGY LABORATORY AIDE[employer] Work Phone: [facility] 06-05-2022 11:03-0400 Systolic blood pressure 116 mm[Hg] Cassidy Blackmonenter PATHOLOGY LABORATORY AIDE[employer] Work Phone: [facility] 04-17-2022 09:47-0500 Body temperature 97.9 [degF] Treatment Wstr Work Phone: [facility] 04-17-2022 09:47-0500 Diastolic blood pressure 60 mm[Hg] Treatment Wstr Work Phone: [facility] 04-17-2022 09:47-0500 Heart rate 77 /min Treatment Wstr Work Phone: [facility] 04-17-2022 09:47-0500 SaO2% (BldA) [Mass fraction] 97 % Treatment Wstr Work Phone: [facility] 04-17-2022 09:47-0500 Systolic blood pressure 126 mm[Hg] Treatment Wstr Work Phone: [facility] 04-15-2022 14:39-0500 Body temperature 97.2 [degF] Treatment Wstr Work Phone: [facility] 04-15-2022 14:39-0500 Diastolic blood pressure 62 mm[Hg] Treatment Wstr Work Phone: [facility] 04-15-2022 14:39-0500 Heart rate 68 /min Treatment Wstr Work Phone: [facility] 04-15-2022 14:39-0500 Respiratory rate 16 /min Treatment Wstr Work Phone: [facility] 04-15-2022 14:39-0500 Systolic blood pressure 135 mm[Hg] Treatment Wstr Work Phone: [facility] 04-12-2022 13:55-0500 Body temperature 97.7 [degF] Treatment Wstr Work Phone: [facility] 04-12-2022 13:55-0500 Diastolic blood pressure 47 mm[Hg] Treatment Wstr Work Phone: [facility] 04-12-2022 13:55-0500 Heart rate 71 /min Treatment Wstr Work Phone: [facility] 04-12-2022 13:55-0500 Systolic blood pressure 119 mm[Hg] Treatment Wstr Work Phone: [facility] 04-10-2022 10:54-0500 Body temperature 97.3 [degF] Treatment Wstr Work Phone: [facility] 04-10-2022 10:54-0500 Diastolic blood pressure 54 mm[Hg] Treatment Wstr Work Phone: [facility] 04-10-2022 10:54-0500 Heart rate 78 /min Treatment Wstr Work Phone: [facility] 04-10-2022 10:54-0500 Systolic blood pressure 134 mm[Hg] Treatment Wstr Work Phone: [facility] 04-09-2022 14:29-0500 Body height 167.6 cm Taty Perez APRN[employer] Work Phone: [facility] 04-09-2022 14:29-0500 Body weight 76.66 kg Taty Perez APRN[employer] Work Phone: [facility] 04-09-2022 14:29-0500 Diastolic blood pressure 58 mm[Hg] Taty Perez APRN[employer] Work Phone: [facility] 04-09-2022 14:29-0500 Heart rate 75 /min Taty Perez APRN[employer] Work Phone: [facility] 04-09-2022 14:29-0500 SaO2% (BldA) [Mass fraction] 98 % Taty Perez PATHOLOGY LABORATORY AIDE[employer] Work Phone: [facility] 04-09-2022 14:29-0500 Systolic blood pressure 118 mm[Hg] Taty Perez PATHOLOGY LABORATORY AIDE[employer] Work Phone: [facility] 04-08-2022 11:01-0500 Body temperature 97.3 [degF] Treatment Wstr Work Phone: [facility] 04-08-2022 11:01-0500 Diastolic blood pressure 57 mm[Hg] Treatment Wstr Work Phone: [facility] 04-08-2022 11:01-0500 Heart rate 79 /min Treatment Wstr Work Phone: [facility] 04-08-2022 11:01-0500 Systolic blood pressure 125 mm[Hg] Treatment Wstr Work Phone: [facility] 03-06-2022 14:21-0500 Body temperature 97.11 [degF] Cassidy Arreola PATHOLOGY LABORATORY AIDE[employer] Work Phone: [facility] 03-06-2022 14:21-0500 Body weight 76.43 kg Cassidy Arreola PATHOLOGY LABORATORY AIDE[employer] Work Phone: [facility] 03-06-2022 14:21-0500 Diastolic blood pressure 57 mm[Hg] Cassidy Arreola PATHOLOGY LABORATORY AIDE[employer] Work Phone: [facility] 03-06-2022 14:21-0500 Heart rate 72 /min Cassidy Arreola PATHOLOGY LABORATORY AIDE[employer] Work Phone: [facility] 03-06-2022 14:21-0500 SaO2% (BldA) [Mass fraction] 100 % Cassidy Arreola PATHOLOGY LABORATORY AIDE[employer] Work Phone: [facility] 03-06-2022 14:21-0500 Systolic blood pressure 119 mm[Hg] Cassidy Arreola PATHOLOGY LABORATORY AIDE[employer] Work Phone: [facility] 03-06-2022 13:44-0500 Body temperature 97 [degF] Dr. Galina Iraheta Work Phone: [facility] 03-06-2022 13:44-0500 Diastolic blood pressure 64 mm[Hg] Dr. Galina Iraheta Work Phone: [facility] 03-06-2022 13:44-0500 Heart rate 68 /min Dr. Galina Iraheta Work Phone: [facility] 03-06-2022 13:44-0500 Respiratory rate 16 /min Dr. Galina Iraheta Work Phone: [facility] 03-06-2022 13:44-0500 SaO2% (BldA) [Mass fraction] 99 % Dr. Galina Iraheta Work Phone: [facility] 03-06-2022 13:44-0500 Systolic blood pressure 132 mm[Hg] Dr. Galina Iraheta Work Phone: 8(574)464-918664 [address] 03-06-2022 08:50-0500 Body height 165.[address] Galina Iraheta Work Phone: 6(279)845-021564 [address] 03-06-2022 08:50-0500 Body mass index (BMI) [Ratio] 27.3 kg/m2 Dr. Galina Iraheta Work Phone: [facility] 03-06-2022 08:50-0500 Body weight 74.[address] Galina Iraheta Work Phone: [facility] 01-02-2022 13:31-0400 Body height 167.6 cm Basilia Hernández MD Work Phone: [facility] 01-02-2022 13:31-0400 Body weight 74.84 kg Basilia Hernández MD Work Phone: [facility] 01-02-2022 13:31-0400 Diastolic blood pressure 62 mm[Hg] Basilia Hernández MD Work Phone: [facility] 01-02-2022 13:31-0400 Systolic blood pressure 126 mm[Hg] Basilia Hernández MD Work Phone: [facility] 12-28-2021 15:09-0400 Body temperature 98.9 [degF] Dr. Galina Iraheta Work Phone: [facility] 12-28-2021 15:09-0400 Diastolic blood pressure 79 mm[Hg] Dr. Galina Iraheta Work Phone: [facility] 12-28-2021 15:09-0400 Heart rate 70 /min Dr. Galina Iraheta Work Phone: [facility] 12-28-2021 15:09-0400 Respiratory rate 16 /min Dr. Galina Iraheta Work Phone: 3(710)[phone] [place] [address] 12-28-2021 15:09-0400 SaO2% (BldA) [Mass fraction] 94 % Dr. Galina Iraheta Work Phone: 9(637)[phone] [place] [address] 12-28-2021 15:09-0400 Systolic blood pressure 125 mm[Hg] Dr. Galina Iraheta Work Phone: 5(921)[phone] [place] [address] 12-28-2021 11:18-0400 Body height 165.[address] Galina Iraheta Work Phone: [facility] Work Phone: 12-28-2021 11:18-0400 Body mass index (BMI) [Ratio] 27.4 kg/m2 Dr. Galina Iraheta Work Phone: [facility] 12-28-2021 11:18-0400 Body weight 74.[address] Galina Iraheta Work Phone: [facility] 10-18-2021 18:15-0400 Diastolic blood pressure 68 mm[Hg] [facility] Work Phone: 10-18-2021 18:15-0400 Heart rate 74 /min [facility] Work Phone: 10-18-2021 18:15-0400 Respiratory rate 13 /min [facility] Work Phone: 10-18-2021 18:15-0400 SaO2% (BldA) [Mass fraction] 99 % [facility] Work Phone: 10-18-2021 18:15-0400 Systolic blood pressure 134 mm[Hg] [facility] Work Phone: 10-18-2021 17:15-0400 Body temperature 98.7 [degF] [facility] Work Phone: 10-18-2021 09:50-0400 Body height 167.64 cm [facility] Work Phone: 10-18-2021 09:50-0400 Body mass index (BMI) [Ratio] 27.4 kg/m2 [facility] Work Phone: 10-18-2021 09:50-0400 Body weight 77.11 kg [facility] Work Phone: 10-11-2021 07:56-0400 Body temperature 98.01 [degF] Jeancarlos Hooker MD Work Phone: [facility] 10-11-2021 07:56-0400 Body weight 77.56 kg Jeancarlos Hooker MD Work Phone: [facility] 10-11-2021 07:56-0400 Diastolic blood pressure 48 mm[Hg] Jeancarlos Hooker MD Work Phone: [facility] 10-11-2021 07:56-0400 Heart rate 78 /min Jeancarlos Hooker MD Work Phone: [facility] 10-11-2021 07:56-0400 Respiratory rate 16 /min Jeancarlos Hooker MD Work Phone: [facility] 10-11-2021 07:56-0400 SaO2% (BldA) [Mass fraction] 100 % Jeancarlos Hooker MD Work Phone: [facility] 10-11-2021 07:56-0400 Systolic blood pressure 115 mm[Hg] Jeancarlos Hooker MD Work Phone: [facility] 09-26-2021 14:00-0400 Body height 167.6 cm Basilia Hernández MD Work Phone: [facility] 09-26-2021 14:00-0400 Body weight 77.11 kg Basilia Hernández MD Work Phone: [facility] 09-18-2021 09:15-0400 Body temperature 97.39 [degF] [place] Arreola PATHOLOGY LABORATORY AIDE[employer] Work Phone: [facility] 09-18-2021 09:15-0400 Body weight 77.11 kg [place] Arreola PATHOLOGY LABORATORY AIDE[employer] Work Phone: [facility] 09-18-2021 09:15-0400 Diastolic blood pressure 47 mm[Hg] [place] Arreola PATHOLOGY LABORATORY AIDE.[employer] Work Phone: [facility] 09-18-2021 09:15-0400 Heart rate 75 /min [place] Arreola PATHOLOGY LABORATORY AIDE.[employer] Work Phone: [facility] 09-18-2021 09:15-0400 Systolic blood pressure 108 mm[Hg] Cassidy Arreola PATHOLOGY LABORATORY AIDE.[employer] Work Phone: [facility] 09-18-2021 09:12-0400 Body weight 77.25 kg Lab/[place] Work Phone: [facility] 09-11-2021 10:39-0400 Body weight 76.66 kg Jayde Hebert MD Work Phone: [facility] 09-11-2021 10:39-0400 Diastolic blood pressure 58 mm[Hg] Jayde Hebert MD Work Phone: [facility] 09-11-2021 10:39-0400 Systolic blood pressure 124 mm[Hg] Jayde Hebert MD Work Phone: [facility] 09-05-2021 13:15-0400 Body height 167.6 cm Cecilio Ibarra DO Work Phone: [facility] 09-05-2021 13:15-0400 Body weight 77.66 kg Cecilio Ibarra DO Work Phone: [facility] 09-05-2021 13:15-0400 Diastolic blood pressure 54 mm[Hg] Cecilio Ibarra DO Work Phone: [facility] 09-05-2021 13:15-0400 Heart rate 73 /min Cecilio Ibarra DO Work Phone: [facility] 09-05-2021 13:15-0400 SaO2% (BldA) [Mass fraction] 97 % Cecilio Ibarra DO Work Phone: [facility] 09-05-2021 13:15-0400 Systolic blood pressure 104 mm[Hg] Cecilio Ibarra DO Work Phone: [facility] 08-30-2021 13:17-0400 Body weight 78.47 kg Jayde Hebert MD Work Phone: [facility] 08-26-2021 14:42-0400 Heart rate 76 /min [facility] Work Phone: 08-26-2021 14:42-0400 Respiratory rate 17 /min [facility] Work Phone: 08-26-2021 14:42-0400 SaO2% (BldA) [Mass fraction] 97 % [facility] Work Phone: 08-26-2021 13:01-0400 Diastolic blood pressure 49 mm[Hg] [facility] Work Phone: 08-26-2021 13:01-0400 Systolic blood pressure 111 mm[Hg] [facility] Work Phone: 08-26-2021 12:13-0400 Body height 167.64 cm [facility] Work Phone: 08-26-2021 12:13-0400 Body mass index (BMI) [Ratio] 27.6 kg/m2 [facility] Work Phone: 08-26-2021 12:13-0400 Body temperature 98.1 [degF] [facility] Work Phone: 08-26-2021 12:13-0400 Body weight 77.56 kg [facility] Work Phone: 08-23-2021 15:21-0400 Body temperature 98 [degF] [facility] Work Phone: 08-23-2021 15:21-0400 Diastolic blood pressure 41 mm[Hg] [facility] Work Phone: 08-23-2021 15:21-0400 Heart rate 72 /min [facility] Work Phone: 08-23-2021 15:21-0400 Respiratory rate 16 /min [facility] Work Phone: 08-23-2021 15:21-0400 SaO2% (BldA) [Mass fraction] 96 % [facility] Work Phone: 08-23-2021 15:21-0400 Systolic blood pressure 105 mm[Hg] [facility] Work Phone: 08-23-2021 12:24-0400 Body height 167.64 cm [facility] Work Phone: 08-23-2021 12:24-0400 Body mass index (BMI) [Ratio] 27.8 kg/m2 [facility] Work Phone: 08-23-2021 12:24-0400 Body weight 78.1 kg [facility] Work Phone: 08-15-2021 16:04-0400 Body weight 78.47 kg Jayde Hebert MD Work Phone: [facility] 08-15-2021 16:04-0400 Diastolic blood pressure 58 mm[Hg] Jayde Hebert MD Work Phone: [facility] 08-15-2021 16:04-0400 Systolic blood pressure 118 mm[Hg] Jayde Hebert MD Work Phone: [facility] 08-08-2021 14:10-0400 Body weight 78.02 kg An Ta APRN.CNP Work Phone: [facility] 08-08-2021 14:10-0400 Diastolic blood pressure 66 mm[Hg] An Older PATHOLOGY LABORATORY AIDE[employer] Work Phone: [facility] 08-08-2021 14:10-0400 Heart rate 68 /min An Older PATHOLOGY LABORATORY AIDE.[employer] Work Phone: [facility] 08-08-2021 14:10-0400 Respiratory rate 16 /min An Older PATHOLOGY LABORATORY AIDE.[employer] Work Phone: [facility] 08-08-2021 14:10-0400 Systolic blood pressure 116 mm[Hg] An Older PATHOLOGY LABORATORY AIDE.[employer] Work Phone: [facility] 07-05-2021 09:41-0400 Body height 167.6 cm Johnny Turk MD Work Phone: [facility] 07-05-2021 09:41-0400 Body temperature 98.6 [degF] Johnny Turk MD Work Phone: [facility] 07-05-2021 09:41-0400 Body weight 79.83 kg Johnny Turk MD Work Phone: [facility] 07-05-2021 09:41-0400 Diastolic blood pressure 60 mm[Hg] Johnny Turk MD Work Phone: [facility] 07-05-2021 09:41-0400 Heart rate 69 /min Johnny Turk MD Work Phone: [facility] 07-05-2021 09:41-0400 SaO2% (BldA) [Mass fraction] 100 % Johnny Turk MD Work Phone: [facility] 07-05-2021 09:41-0400 Systolic blood pressure 106 mm[Hg] Johnny Turk MD Work Phone: [facility] 07-03-2021 11:58-0400 Body temperature 98.4 [degF] Alma Older PATHOLOGY LABORATORY AIDE.[employer] Work Phone: [facility] 07-03-2021 11:58-0400 Body weight 78.93 kg Alma Older PATHOLOGY LABORATORY AIDE.[employer] Work Phone: [facility] 07-03-2021 11:58-0400 Diastolic blood pressure 64 mm[Hg] Alma Older PATHOLOGY LABORATORY AIDE.[employer] Work Phone: [facility] 07-03-2021 11:58-0400 Heart rate 67 /min Alma Older PATHOLOGY LABORATORY AIDE.[employer] Work Phone: [facility] 07-03-2021 11:58-0400 Respiratory rate 12 /min Alma Older PATHOLOGY LABORATORY AIDE.[employer] Work Phone: [facility] 07-03-2021 11:58-0400 SaO2% (BldA) [Mass fraction] 97 % Alma Older PATHOLOGY LABORATORY AIDE.[employer] Work Phone: [facility] 07-03-2021 11:58-0400 Systolic blood pressure 118 mm[Hg] Alma Older PATHOLOGY LABORATORY AIDE.[employer] Work Phone: [facility] 07-03-2021 04:44-0400 Diastolic blood pressure 64 mm[Hg] [facility] Work Phone: 07-03-2021 04:44-0400 Heart rate 69 /min [facility] Work Phone: 07-03-2021 04:44-0400 Respiratory rate 18 /min [facility] Work Phone: 07-03-2021 04:44-0400 SaO2% (BldA) [Mass fraction] 96 % [facility] Work Phone: 07-03-2021 04:44-0400 Systolic blood pressure 119 mm[Hg] [facility] Work Phone: 07-02-2021 23:21-0400 Body height 167.64 cm [facility] Work Phone: 07-02-2021 23:21-0400 Body mass index (BMI) [Ratio] 28.4 kg/m2 [facility] Work Phone: 07-02-2021 23:21-0400 Body temperature 97.2 [degF] [facility] Work Phone: 07-02-2021 23:21-0400 Body weight 79.9 kg [facility] Work Phone: 06-05-2021 10:40-0400 Body height 167.6 cm Aby Bruner DO Work Phone: [facility] 06-05-2021 10:40-0400 Body weight 79.83 kg Aby Bruner DO Work Phone: [facility] 06-05-2021 10:40-0400 Diastolic blood pressure 62 mm[Hg] Aby Bruner DO Work Phone: [facility] 06-05-2021 10:40-0400 Heart rate 65 /min Aby Bruner DO Work Phone: [facility] 06-05-2021 10:40-0400 SaO2% (BldA) [Mass fraction] 99 % Aby Bruner DO Work Phone: [facility] 06-05-2021 10:40-0400 Systolic blood pressure 110 mm[Hg] Aby Bruner DO Work Phone: [facility] Encounters Encounter Date Encounter Type Care Provider Facility Start: 11-23-2024 End: 11-23-2024 Telemedicine consultation with patient Thalia Monterroso MD Work Phone: Rheumatology Start: 11-23-2024 End: 11-23-2024 ambulatory Thalia Monterroso MD Work Phone: Rheumatology Comment on above: Rheumatoid arthritis involving multiple sites, unspecified whether rheumatoid factor present (HCC) (Primary Dx); Senile osteoporosis; On prednisone therapy Start: 11-22-2024 End: 11-22-2024 Patient encounter procedure Juliet SCHAEFER -[facility] Work Phone: Start: 11-22-2024 End: 11-22-[address] Galina Iraheta MD Work Phone: -[facility] Start: 11-03-2024 ambulatory Payam POPE Facility:[facility] Start: 11-03-2024 [facility] Start: 11-02-2024 End: 11-02-[address] Galina Iraheta MD Work Phone: -[facility] Start: 11-02-2024 End: 11-02-[address] Payam Reyna MD -[facility] Work Phone: Start: 11-01-2024 ambulatory Payam POPE Facility:[facility] Start: 11-01-2024 [facility] Start: 10-22-2024 End: 10-22-[address] Charles Ramos MD -[facility] Start: 10-22-2024 End: 10-22-[address] Galina Iraheta MD Work Phone: [facility] Start: 10-13-2024 Registered Recurring Carmella Deluca HEALTH POLICY ANALYST-C -Occupational Therapy Work Phone: Start: 10-13-2024 ambulatory Carmella Deluca Facility :[facility] Start: 10-04-2024 ambulatory Payam POPE Facility:[facility] Start: 10-04-2024 Registered Referred Payam Reyna MD [facility] Start: 09-24-2024 End: 09-24-[address] Charles Ramos MD -[facility] Start: 09-24-2024 End: 09-24-[address] Galina Iraheta MD Work Phone: -[facility] Start: 09-22-2024 End: 09-22-[address] Galina Iraheta MD Work Phone: -[facility] Start: 09-22-2024 End: 09-22-2024 Patient encounter procedure Galina Horner HEALTH POLICY ANALYST-C -[facility] Work Phone: Start: 09-22-2024 End: 11-22-2024 Follow-up encounter Thalia Monterroso MD Work Phone: Rheumatology Start: 09-22-2024 End: 09-22-2024 Telephone encounter Cassidy Arreola APRN.[employer] Work Phone: Hematology/Oncology Start: 09-21-2024 End: 09-21-2024 Patient encounter procedure Cassidy Blackmoncarrillo ANGUIANO.[employer] Work Phone: Hematology/Oncology Start: 09-21-2024 End: 09-21-2024 ambulatory [place] [facility] Work Phone: Hematology/Oncology Comment on above: Rheumatoid arthritis involving multiple sites, unspecified whether rheumatoid factor present (HCC) (Primary Dx); Senile osteoporosis; Personal history of breast cancer; Iron deficiency anemia due to chronic blood loss Personal history of breast cancer (Primary Dx); Iron deficiency anemia due to chronic blood loss Start: 09-20-2024 End: 09-20-[address] Galina Iraheta MD Work Phone: -[facility] Start: 09-20-2024 End: 09-20-2024 Patient encounter procedure Galina SCHAEFER -[facility] Work Phone: Start: 09-14-2024 End: 09-14-2024 Emergency department patient visit Dr. Galina Iraheta MD Work Phone: -Emergency Department Work Phone: Start: 09-14-2024 Non-patient / Non-visit Dr. Bowen Abdullahi MD -[facility] Work Phone: Start: 09-07-2024 End: 09-07-2024 Patient encounter procedure Juliet SCHAEFER -[facility] Work Phone: Start: 09-07-2024 End: 09-07-[address] Galina Iraheta MD Work Phone: [facility] Work Phone: Start: 09-03-2024 End: 09-03-[address] Charles Ramos MD -[facility] Start: 09-03-2024 End: 09-03-[address] Galina Iraheta MD Work Phone: [facility] Work Phone: Start: 08-30-2024 End: 09-13-2024 Telephone encounter Thalia Monterroso MD Work Phone: Rheumatology Comment on above: Scheduling Start: 08-30-2024 ambulatory Payam POPE Facility:[facility] Start: 08-30-2024 Registered Referred Payam Reyna MD [facility] Start: 08-27-2024 End: 08-27-2024 ambulatory Thalia Monterroso MD Work Phone: Rheumatology Comment on above: Rheumatoid arthritis involving multiple sites, unspecified whether rheumatoid factor present (HCC) (Primary Dx); Senile osteoporosis; On prednisone therapy [place] [facility] Start: 08-27-2024 End: 08-27-2024 Telemedicine consultation with patient Thalia Monterroso MD Work Phone: Rheumatology Start: 08-18-2024 End: 08-18-[address] Charles Ramos MD -[facility] Start: 08-18-2024 End: 08-18-[address] Galina Iraheta MD Work Phone: [facility] Work Phone: Start: 08-16-2024 End: 08-16-[address] Galina Iraheta MD Work Phone: -[facility] Start: 08-16-2024 End: 08-16-2024 Patient encounter procedure Galina SCHAEFER -[facility] Work Phone: Start: 08-13-2024 End: 08-13-[address] Charles Ramos MD -[facility] Start: 08-13-2024 End: 08-13-[address] Galina Iraheta MD Work Phone: [facility] Work Phone: Start: 08-12-2024 End: 08-12-[address] Galina Iraheta MD Work Phone: [facility] Work Phone: Start: 08-12-2024 End: 08-12-2024 Patient encounter procedure Galina Horner OLIVE -[facility] Work Phone: Start: 08-06-2024 End: 08-06-[address] Galina Iraheta MD Work Phone: [facility] Work Phone: Start: 08-06-2024 End: 08-06-[address] Hiwot Abdullahi MD -[facility] Work Phone: Start: 08-06-2024 End: 08-06-2024 ambulatory [facility] Facility:[facility] Start: 08-02-2024 End: 08-02-2024 Departed Referred Payam [facility] Start: 08-02-2024 End: 08-02-2024 ambulatory [facility] Facility:[facility] Start: 07-08-2024 End: 07-08-[address] Galina Iraheta MD Work Phone: [facility] Work Phone: Start: 07-08-2024 End: 07-08-2024 Departed Referred Payam [facility] Start: 07-08-2024 Registered Referred Payam Meza [facility] Start: 07-07-2024 End: 07-08-[address] Galina Iraheta MD Work Phone: [facility] Work Phone: Start: 07-07-2024 End: 07-07-2024 Departed Referred Payam [facility] Start: 07-07-2024 Registered Referred Payam Meza [place] Start: 07-06-2024 End: 07-07-[address] Galina Iraheta MD Work Phone: [facility] Work Phone: Start: 07-06-2024 End: 07-06-[address] Payam Reyna MD -[facility] Work Phone: Start: 07-05-2024 End: 07-05-[address] Galina Iraheta MD Work Phone: [facility] Work Phone: Start: 07-05-2024 End: 07-05-2024 [facility] [place] [facility] Start: 07-05-2024 Registered Referred Payam GonzalezAgnes - [place] [facility] Start: 07-05-2024 End: 07-05-2024 ambulatory Payam POPE Facility:[facility] Start: 06-16-2024 End: 06-16-2024 Telephone encounter Thalia Monterroso MD Work Phone: Rheumatology Start: 06-16-2024 End: 06-16-2024 [facility] Start: 06-16-2024 Registered Referred Payam GonzalezAgnes [place] [facility] Start: 06-16-2024 End: 06-16-2024 ambulatory Payam POPE Facility:[facility] Start: 06-11-2024 End: 06-11-2024 ambulatory [place] [facility] Work Phone: Hematology/Oncology Comment on above: Rheumatoid arthritis involving multiple sites, unspecified whether rheumatoid factor present (HCC); Senile osteoporosis Start: 05-31-2024 End: 05-31-[address] Galina Iraheta MD Work Phone: [facility] Work Phone: Start: 05-31-2024 End: 05-31-2024 Departed Referred Payam GonzalezAgnes [place] [place] Start: 05-31-2024 Registered Referred Payam [facility] [place] Start: 05-31-2024 End: 05-31-2024 ambulatory Payam POPE Facility:[facility] Start: 05-21-2024 End: 05-21-2024 ambulatory Thalia Monterroso MD Work Phone: Rheumatology Comment on above: Rheumatoid arthritis involving multiple sites, unspecified whether rheumatoid factor present (HCC) (Primary Dx); Senile osteoporosis; On prednisone therapy Start: 05-21-2024 End: 05-21-2024 Telemedicine consultation with patient Thalia Monterroso MD Work Phone: Rheumatology Start: 05-13-2024 End: 05-13-[address] Galina Iraheta MD Work Phone: [facility] Work Phone: Start: 05-13-2024 End: 05-13-2024 Departed Referred Payam [place] Start: 05-13-2024 End: 05-13-2024 ambulatory Galina Horner NP Facility:[facility] Start: 05-13-2024 End: 05-13-2024 Patient encounter procedure Galina Horner HEALTH POLICY ANALYST-C -[facility] Work Phone: Start: 05-13-2024 End: 05-13-2024 ambulatory Payam POPE Facility:[facility] Start: 05-03-2024 ambulatory Payam modi OLS Facility:[facility] Start: 05-03-2024 Registered Referred Payam [place] Start: 04-23-2024 End: 04-23-2024 Departed Referred Payam [place] Start: 04-23-2024 End: 04-23-2024 ambulatory Payam POPE Facility:[facility] Start: 04-05-2024 End: 04-05-2024 Departed Referred Payam [place] Start: 04-05-2024 End: 04-05-2024 ambulatory Payam POPE Facility:[facility] Start: 03-25-2024 End: 03-26-2024 ambulatory Cassidy Arreola APRN.CNP Work Phone: Hematology/Oncology Comment on above: Test Results Start: 03-19-2024 End: 03-19-2024 Subsequent hospital visit by physician [facility] Cat Scan Comment on above: Bilateral hip pain [ M25.551, M25.552] Iron deficiency anem ia due to chronic blood loss [D50.0] Start: 03-19-2024 End: 03-19-2024 ambulatory CASSIDY ARREOLA Facility:[facility] Start: 03-12-2024 End: 03-12-2024 ambulatory Treatment Rm 14 [place] [facility] Work Phone: Hematology/Oncology Comment on above: [...] 03-02-2024 End: 03-04-2024 Telephone encounter Cassidy Arreola APRN.[employer] Work Phone: Hematology/Oncology Comment on above: Appointment Start: 03-02-2024 ambulatory Payam POPE Facility:[facility] Start: 03-02-2024 [facility] Start: 03-01-2024 ambulatory Payam modi OLS Facility:[facility] Start: 03-01-2024 [facility] Start: 02-27-2024 End: 02-27-2024 ambulatory Treatment Rm 15 [place] [facility] Work Phone: Hematology/Oncology Comment on above: [...] Start: 02-24-2024 End: 03-29-2024 ambulatory [place] [facility] Work Phone: Hematology/Oncology Comment on above: Rheumatoid arthritis involving multiple sites with positive rheumatoid factor (HCC) (Primary Dx); Rheumatoid arthritis involving multiple sites, unspecified whether rheumatoid factor present (HCC); Senile osteoporosis; Malignant neoplasm of lower-inner quadrant of right breast of female, estrogen receptor positive (HCC); Iron deficiency anemia due to chronic blood loss Start: 02-02-2024 End: 02-02-2024 ambulatory Efarline POPE Facility:[facility] Start: 01-28-2024 End: 01-28-2024 ambulatory Treatment Rm 17 [place] [facility] Work Phone: Hematology/Oncology Comment on above: Rheumatoid arthritis involving multiple sites with positive rheumatoid factor (HCC) (Primary Dx) Start: 01-23-2024 End: 01-23-2024 Telephone encounter Thalia Monterroso MD Work Phone: Rheumatology Comment on above: Patient Update Start: 01-14-2024 End: 01-14-2024 ambulatory Efarline POPE Facility:[facility] Start: 01-05-2024 ambulatory Payam POPE Facility:[facility] Start: 12-31-2023 End: 12-31-2023 ambulatory Galina Horner NP Facility:[facility] Start: 12-29-2023 ambulatory Payam POPE Facility:[facility] Start: 12-11-2023 End: 12-11-2023 ambulatory THALIA MONTERROSO Hematology/Oncology Comment on above: Senile osteoporosis (Primary Dx) Start: 12-11-2023 End: 12-11-2023 Patient encounter procedure Treatment Rm 16 [place] [facility] Work Phone: Hematology/Oncology Start: 12-04-2023 End: 12-04-2023 ambulatory EFEWAILYN REYNA Hematology/Oncology Comment on above: Rheumatoid arthritis involving multiple sites with positive rheumatoid factor (HCC) (Primary Dx) Start: 12-04-2023 End: 12-04-2023 Patient encounter procedure Treatment Rm 14 [place] [facility] Work Phone: Hematology/Oncology Start: 12-02-2023 ambulatory Payam modi OLS Facility:[facility] Start: 12-01-2023 ambulatory Payam modi OLS Facility:[facility] Start: 11-27-2023 ambulatory Payam modi OLS Facility:[facility] Start: 11-25-2023 End: 11-26-2023 Telephone encounter Sal Bonilla DO Work Phone: Hematology/Oncology Comment on above: Patient Update Start: 11-25-2023 End: 11-25-2023 ambulatory [place] [facility] Work Phone: Hematology/Oncology Comment on above: [...] Thalia Monterroso MD Work Phone: Rheumatology Start: 10-09-2023 End: 10-09-2023 ambulatory Treatment Wstr Work Phone: Hematology/Oncology Comment on above: Rheumatoid arthritis involving multiple sites with positive rheumatoid factor (HCC) (Primary Dx) Start: 10-09-2023 End: 10-09-2023 Patient encounter procedure Treatment Rm 17 [place] [facility] Work Phone: Hematology/Oncology Start: 09-12-2023 End: 09-12-2023 ambulatory Treatment Rm 10 [place] [facility] Work Phone: Hematology/Oncology Comment on above: Rheumatoid arthritis involving multiple sites with positive rheumatoid factor (HCC) (Primary Dx) Start: 08-28-2023 End: 08-28-2023 ambulatory Treatment Rm 7 [place] [facility] Work Phone: Hematology/Oncology Comment on above: Rheumatoid arthritis involving multiple sites with positive rheumatoid factor (HCC) (Primary Dx) Start: 08-19-2023 Telephone encounter Cassidy vizcaino APRN.[employer] Work Phone: Hematology/Oncology Comment on above: Orders Start: 08-19-2023 End: 08-19-2023 Patient encounter procedure Cassidy Arreola PATHOLOGY LABORATORY AIDE.[employer] Work Phone: Hematology/Oncology Start: 08-19-2023 End: 08-19-2023 ambulatory [place] [facility] Work Phone: Hematology/Oncology Comment on above: [...] End: 07-15-2023 Patient encounter procedure Vikash Sylvester APRN.[employer] Work Phone: URO/Gynecology Comment on above: Recurrent UTI (Prima ry Dx); Vaginal atrophy Start: 07-04-2023 ambulatory Hamzah [facility] Start: 07-04-2023 End: [...] 06-30-[address] Galina Iraheta Work Phone: [facility] Work Phone: Start: 06-30-2023 End: 06-30-[address] Galina Iraheta Work Phone: [facility] Start: 06-18-2023 End: 06-18-2023 Patient encounter procedure Stella Preciado PA-C Work Phone: Orthopaedics Comment on above: Chronic pain of left knee (Primary Dx); Primary osteoarthritis of both knees Start: 06-18-2023 End: 06-18-2023 Subsequent hospital visit by physician [facility] Work Phone: Radiology Comment on [...] Subsequent hospital visit by physician [facility] Work Phone: Radiology Comment on above: On prednisone therap y [Z79.52] Start: 06-02-2023 End: 06-02-[address] Galina Iraheta Work Phone: [facility] Work Phone: Start: 06-02-2023 End: 06-02-[address] Galina Iraheta Work Phone: [facility] Start: 05-19-2023 Orders Only Cassidy waldrop APRN.[employer] Work Phone: Hematology/Oncology Comment on above: Malignant neoplasm o f lower-inner quadrant of right breast of female, estrogen receptor positive (HCC) (Primary Dx); Iron deficiency anemia due to chronic blood loss Start: 05-05-2023 End: 05-05-[address] Galina Iraheta [facility]: [facility] [facility] Work Phone: Start: 05-05-2023 End: 05-05-[address] Galina Iraheta Work Phone: [facility] Start: 04-28-2023 Telephone encounter Thalia Monterroso MD Work Phone: Rheumatology Comment on above: Patient Update Start: 04-24-2023 Telephone encounter Thalia Monterroso MD Work Phone: Rheumatology Comment on above: Pain Start: 03-31-2023 End: 03-31-[address] Galina Iraheta Work Phone: [facility] Work Phone: Start: 03-31-2023 End: 03-31-[address] Galina Iraheta Work Phone: [facility] Start: 03-24-2023 End: 03-24-[address] Galina Iraheta Work Phone: [facility] Work Phone: Start: 03-03-2023 End: 03-03-[address] Galina Iraheta Work Phone: [facility] Start: 02-19-2023 End: 02-19-[address] Galina Iraheta Work Phone: [facility] Work Phone: Start: 02-11-2023 End: 02-11-2023 ambulatory Cassidy Arreola APRN.[employer] Work Phone: Hematology/Oncology Comment on above: Personal history of breast cancer (Primary Dx); Iron deficiency anemia due to chronic blood loss Start: 02-11-2023 End: 02-11-2023 Patient encounter procedure Cassidy Arreola APRN.[employer] Work Phone: [facility] Start: 02-03-2023 End: 02-03-2023 ambulatory [facility] Work Phone: Start: 02-03-2023 End: 02-03-2023 Departed Referred [facility] Start: 01-29-2023 End: 01-29-[address] Galina Iraheta Work Phone: [facility] Work Phone: Start: 01-14-2023 End: 01-14-2023 ambulatory Lab[facility] [facility] Work Phone: Hematology/Oncology Comment on above: Iron deficiency anem ia due to chronic blood loss (Primary Dx); Personal history of breast cancer; Malignant neoplasm of lower-inner quadrant of right breast of female, estrogen receptor positive (HCC) Start: 12-30-2022 End: 12-30-2022 ambulatory [facility] Work Phone: Start: 12-30-2022 End: 12-30-2022 Departed Referred [facility] Start: 12-19-2022 Telephone encounter Flaca veliz Jasso Work Phone: Orthopaedics Comment on above: Last Office Visit No te Start: 12-17-2022 End: 12-17-2022 ambulatory [facility] [facility] Work Phone: Hematology/Oncology Comment on above: Iron deficiency anem ia due to chronic blood loss (Primary Dx) Start: 12-13-2022 End: 12-13-2022 Patient encounter procedure Juliet Gaffney APRN.[employer] Work Phone: Cardiology Comment on above: Essential hypertensi on (Primary Dx); Paroxysmal atrial fibrillation (HCC) Start: 12-02-2022 End: 12-02-2022 Departed Referred [facility] Start: 11-26-2022 Telephone encounter Stella camejo PA-C Work Phone: Orthopaedics Start: 11-25-2022 End: 11-25-2022 Subsequent hospital visit by physician Xr [facility] Jarad Work Phone: Radiology Comment on above: Pain in right wrist [M25.531] Start: 11-25-2022 End: 11-25-2022 Patient encounter procedure Stella GRACEC Work Phone: Orthopaedics Comment on above: Pain in right wrist (Primary Dx); Primary osteoarthritis of both knees; [facility] arthritis Start: 11-14-2022 Telephone encounter Jerrica Beltran APRN.[employer] Work Phone: Cardiology Comment on above: Appointment Cancelle d Start: 11-04-2022 End: 11-04-2022 Departed Referred [facility] Start: 11-04-[address] Galina Iraheta Work Phone: [facility] Start: 10-22-2022 End: 10-22-2022 ambulatory [facility] [facility] Work Phone: Hematology/Oncology Comment on above: Encounter for care r elated to vascular access port (Primary Dx) Start: 09-30-2022 End: 09-30-[address] Galina Iraheta Work Phone: [facility] Work Phone: Start: 09-30-2022 End: 09-30-[address] Galina Iraheta Work Phone: [facility] Start: 09-30-[address] Galina Iraheta Work Phone: [facility] Start: 09-24-2022 End: 09-24-2022 ambulatory [facility] [facility] Work Phone: Hematology/Oncology Comment on above: Encounter for care r elated to vascular access port (Primary Dx) Start: 09-20-2022 Telephone encounter Cecilio Ibarra DO Work Phone: Cardiology Comment on above: Results (CBC 09/19/22 - 2 week starting Eliquis) Start: 09-19-2022 End: 09-19-[address] Galina Iraheta Work Phone: [facility] Work Phone: Start: 09-19-2022 End: 09-19-[address] Galina Iraheta Work Phone: [facility] Start: 09-19-[address] Galina Iraheta Work Phone: [facility] Start: 09-05-2022 End: 09-05-2022 Patient encounter procedure Cecilio Ibarra DO Work Phone: Cardiology Comment on above: Paroxysmal atrial fi brillation (HCC) (Primary Dx); Rheumatic mitral regurgitation; Essential hypertension; Mixed hyperlipidemia; Obstructive sleep apnea syndrome; Shortness of breath; PAF (paroxysmal atrial fibrillation) (HCC); SVT (supraventricular tachycardia) (HCC) Start: 09-02-2022 End: 09-02-[address] Galina Iraheta Work Phone: [facility] Work Phone: Start: 09-02-2022 End: 09-02-[address] Galina Iraheta Work Phone: [facility] Start: 08-27-2022 End: 08-27-2022 ambulatory Cassidy Arreola APRN.[employer] Work Phone: Hematology/Oncology Comment on above: Personal history of breast cancer (Primary Dx); Iron deficiency anemia due to chronic blood loss Start: 08-27-2022 End: 08-27-2022 Patient encounter procedure Cassidy Arreola APRN.[employer] Work Phone: [facility] Start: 08-14-2022 End: 08-14-[address] Galina Iraheta Work Phone: [facility] Work Phone: Start: 07-29-2022 End: 07-29-[address] Galina Iraheta Work Phone: [facility] Start: 07-01-2022 End: 07-01-[address] Galina Iraheta Work Phone: [facility] Work Phone: Start: 07-01-2022 End: 07-01-[address] Galina Iraheta Work Phone: [facility] Start: 06-18-2022 End: 06-18-2022 ambulatory [facility] [facility] Work Phone: Hematology/Oncology Comment on above: Personal history of breast cancer (Primary Dx) Start: 06-11-2022 Telephone encounter Cassidy vizcaino APRN.[employer] Work Phone: Hematology/Oncology Comment on above: Results Start: 06-05-2022 End: 06-05-2022 Subsequent hospital visit by physician [facility] Work Phone: Radiology Comment on above: Personal history of breast cancer [Z85.3] Start: 06-05-2022 End: 06-05-2022 ambulatory Cassidy Arreola APRN.[employer] Work Phone: Hematology/Oncology Comment on above: Personal history of breast cancer (Primary Dx); Rib pain on right side Start: 06-05-2022 End: 06-05-2022 Patient encounter procedure Cassidy Arreola APRN.[employer] Work Phone: [facility] Start: 06-03-2022 End: 06-03-[address] Galina Iraheta Work Phone: [facility] Work Phone: Start: 06-03-2022 End: 06-03-[address] Galina Iraheta Work Phone: [facility] Start: 06-03-[address] Galina Iraheta Work Phone: [facility] Start: 05-30-2022 End: 05-30-[address] Galina Iraheta Work Phone: [facility] Start: 05-30-2022 Telephone encounter Sal gutierrez DO Work Phone: Hematology/Oncology Comment on above: Patient Question Start: 05-06-2022 End: 05-06-[address] Galina Iraheta Work Phone: [facility] Work Phone: Start: 05-06-2022 End: 05-06-[address] Galina Iraheta Work Phone: [facility] Start: 04-17-2022 End: 04-17-2022 ambulatory Treatment Rm [facility] Work Phone: Hematology/Oncology Comment on above: Iron [...] 04-15-2022 End: 04-15-2022 ambulatory Treatment Rm 2 [facility] [employer] Work Phone: Hematology/Oncology Comment on above: Iron deficiency anem ia due to chronic blood loss (Primary Dx); Iron malabsorption Start: 04-12-2022 End: 04-12-2022 ambulatory Treatment Rm 2 [facility] Work Phone: Hematology/Oncology Comment on above: Iron deficiency anem ia due to chronic blood loss (Primary Dx); Iron malabsorption Start: 04-10-2022 End: 04-10-2022 ambulatory Treatment Rm 3 [facility] [employer] Work Phone: Hematology/Oncology Comment on above: Iron deficiency anem ia due to chronic blood loss (Primary Dx); Iron malabsorption Start: 04-10-2022 Telephone encounter Starla Son RN He matology/Oncology Comment on above: 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 (Symptoms ) Start: 04-09-2022 End: 04-09-2022 Office outpatient visit 25 minutes Taty Perez APRN.CNP Work Phone: Cardiology Comment on above: Chest pain, unspecif ied type (Primary Dx); Paroxysmal atrial fibrillation (HCC); Rheumatic mitral regurgitation; Essential hypertension; Mixed hyperlipidemia; Obstructive sleep apnea syndrome; Shortness of breath Start: 04-08-2022 End: 04-08-2022 ambulatory Treatment Rm 13 [facility] Work Phone: Hematology/Oncology Comment on above: Iron 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 Galina Iraheta Work Phone: [facility] Work Phone: Start: 04-01-2022 End: 04-01-[address] Galina Iraheta Work Phone: [facility] Start: 04-01-[address] Galina Iraheta Work Phone: [facility] Start: 03-28-2022 End: 03-28-[address] Galina Iraheta Work Phone: [facility] Start: 03-25-2022 End: 03-25-[address] Galina Iraheta Work Phone: [facility] Start: 03-24-2022 Telephone encounter Sal gutierrez DO Work Phone: Hematology/Oncology Comment on above: Results (CBC) Start: 03-22-2022 End: 03-22-2022 ambulatory [facility] [facility] Work Phone: Hematology/Oncology Comment on above: Iron deficiency anem ia due to chronic blood loss Start: 03-21-2022 Telephone encounter Sal gutierrez DO Work Phone: Hematology/Oncology Comment on above: Orders; Appointment Start: 03-14-2022 End: 03-14-2022 ambulatory [facility] [facility] Work Phone: Hematology/Oncology Comment on above: Malignant neoplasm o f lower-inner quadrant of right breast of female, estrogen receptor positive (HCC) (Primary Dx); Iron deficiency anemia due to chronic blood loss Start: 03-07-2022 End: 03-07-[address] Galina Iraheta Work Phone: [facility] Work Phone: Start: 03-07-2022 End: 03-07-[address] Galina Iraheta Work Phone: [facility] Start: 03-07-[address] Galina Iraheta Work Phone: [facility] Start: 03-06-2022 Telephone encounter Sal gutierrez DO Work Phone: Hematology/Oncology Comment on above: Returning Patient's Call Start: 03-06-2022 End: 03-06-2022 ambulatory Cassidy Arreola APRN.[employer] Work Phone: Hematology/Oncology Comment on above: Malignant neoplasm o f lower-inner quadrant of right breast of female, estrogen receptor positive (HCC) (Primary Dx) Start: 03-06-2022 End: 03-06-2022 Patient encounter procedure Cassidy Arreola APRN.[employer] Work Phone: [facility] Start: 03-04-2022 End: 03-04-[address] Galina Iraheta Work Phone: [facility] Work Phone: Start: 03-04-2022 End: 03-04-[address] Galina Iraheta Work Phone: [facility] Start: 03-04-[address] Galina Iraheta Work Phone: [facility] Start: 02-21-2022 End: 02-21-[address] Galina Iraheta Work Phone: [facility] Work Phone: Start: 02-21-2022 End: 02-21-[address] Galina Iraheta Work Phone: [facility] Start: 02-21-[address] Galina Iraheta Work Phone: [facility] Start: 02-05-2022 End: 02-05-2022 ambulatory [facility] [facility] Work Phone: Hematology/Oncology Comment on above: Anemia, unspecified type (Primary Dx) Start: 02-04-2022 End: 02-04-[address] Galina Iraheta Work Phone: [facility] Work Phone: Start: 02-04-2022 End: 02-04-[address] Galina Iraheta Work Phone: [facility] Start: 02-04-[address] Galina Iraheta Work Phone: [facility] Start: 01-21-2022 End: 01-21-2022 Patient encounter procedure Stella Preciado PA-C Work Phone: Orthopaedics Comment on above: Primary osteoarthrit is of both knees (Primary Dx); Chronic pain of right knee Start: 01-17-2022 End: 01-17-[address] Galina Iraheta Work Phone: [facility] Work Phone: Start: 01-17-2022 End: 01-17-[address] Galina Iraheta Work Phone: [facility] Start: 01-17-[address] Galina Iraheta Work Phone: [facility] Start: 01-08-2022 End: 01-08-2022 ambulatory [facility] [facility] Work Phone: Hematology/Oncology Comment on above: Malignant neoplasm o f lower-inner quadrant of right breast of female, estrogen receptor positive (HCC) (Primary Dx) Start: 01-03-2022 End: 01-03-[address] Galina Iraheta Work Phone: [facility] Work Phone: Start: 01-03-2022 End: 01-03-[address] Galina Iraheta Work Phone: [facility] Start: 01-03-[address] Galina Iraheta Work Phone: [facility] Start: 01-02-2022 End: 01-02-2022 ambulatory BASILIA HERNÁNDEZ Facility:[facility] Start: 01-02-2022 End: 01-02-2022 Patient encounter procedure Basilia Hernández MD Work Phone: URO/Gynecology Comment on above: Recurrent UTI (Prima ry Dx); History of ESBL E. coli infection; Vaginal atrophy Start: 12-31-2021 End: 12-31-[address] Galina Iraheta Work Phone: [facility] Work Phone: Start: 12-31-2021 End: 12-31-[address] Galina Iraheta Work Phone: [facility] Start: 12-28-2021 End: 12-28-[address] Galina Iraheta Work Phone: [facility] Start: 12-28-2021 End: 12-28-2021 Emergency department patient visit Dr. Galina Iraheta Work Phone: [facility] Start: 12-27-2021 End: 12-27-[address] Galina Iraheta Work Phone: [facility] Work Phone: Start: 12-27-2021 End: 12-27-[address] Galina Iraheta Work Phone: [facility] Start: 12-27-[address] Galina Iraheta Work Phone: [facility] Start: 12-25-2021 Telephone encounter Cecilio Ibarra DO Work Phone: Cardiology Comment on above: 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 Start: 12-24-2021 End: 12-24-[address] Galina Iraheta Work Phone: [facility] Start: 12-22-2021 End: 12-22-[address] Galina Iraheta Work Phone: [facility] Work Phone: Start: 12-22-2021 End: 12-22-[address] Galina Iraheta Work Phone: [facility] Start: 12-22-[address] Galina Iraheta Work Phone: [facility] Start: 12-21-2021 End: 12-21-[address] Galina Iraheta Work Phone: [facility] Start: 12-17-2021 End: 12-17-[address] Galina Iraheta Work Phone: [facility] Start: 12-17-2021 Registered Referred [facility] Start: 12-11-2021 End: 12-11-2021 ambulatory [facility] [facility] Work Phone: Hematology/Oncology Comment on above: Malignant neoplasm o f lower-inner quadrant of right breast of female, estrogen receptor positive (HCC) (Primary Dx) Start: 12-10-2021 End: 12-10-[address] Galina Iraheta Work Phone: [facility] Start: 12-10-2021 Registered Referred [facility] Start: 12-03-2021 End: 12-03-[address] Galina Iraheta Work Phone: [facility] Work Phone: Start: 12-03-2021 End: 12-03-[address] Galina Iraheta Work Phone: [facility] Start: 12-03-2021 Registered Referred [facility] Start: 11-26-2021 End: 11-26-2021 Departed Referred [facility] Start: 11-20-2021 End: 11-20-2021 ambulatory [facility] Work Phone: Start: 11-20-2021 End: 11-20-2021 Departed Referred [facility] Start: 11-13-2021 End: 11-13-2021 ambulatory [facility] [facility] Work Phone: Hematology/Oncology Comment on above: Malignant neoplasm o f lower-inner quadrant of right breast of female, estrogen receptor positive (HCC) (Primary Dx) Start: 11-05-2021 Telephone encounter Pharmacist [facility] Comment on above: PAC TRANSFER OF CARE Start: 10-29-2021 End: 10-29-2021 Departed Referred [facility] Start: 10-23-2021 Telephone encounter Nury Andres [facility] harmacy Ambulatory [facility] Comment on above: Patient Question Start: 10-18-2021 Telephone encounter Galina caballero MD Work Phone: [facility] [place] Comment on above: Patient Update Start: 10-18-2021 End: 10-18-2021 Emergency department patient visit [facility] Start: 10-17-2021 Telephone encounter Galina caballero MD Work Phone: [facility] [place] Comment on above: Release Of Medical R ecords Start: 10-16-2021 Telephone encounter Tesha luther [facility] Comment on above: Anticoagulation Tele phone Fu (home INR ) Start: 10-16-2021 End: 10-16-2021 ambulatory [facility] [facility] Work Phone: [facility] Start: 10-16-2021 End: 10-16-2021 Anticoagulant drug monitoring Lab/[place] [facility] Work Phone: Hematology/Oncology Comment on above: [...] Start: 10-02-2021 Telephone encounter Tesha luther [facility] Ambulatory [facility] Comment on above: Anticoagulation Tele phone Fu (home INR ) Start: 09-26-2021 End: 09-26-2021 ambulatory BASILIA HERNÁNDEZ Facility:[facility] Start: 09-26-2021 End: 09-26-2021 Patient encounter procedure Basilia Hernández MD Work Phone: URO/Gynecology Comment on above: Recurrent UTI (Prima ry Dx); History of ESBL E. coli infection; Mixed stress and urge urinary incontinence Start: 09-19-2021 Telephone encounter Jer[facility] Amb[facility] Comment on above: Anticoagulation Tele phone Fu (Home INR result) Start: 09-18-2021 End: 09-18-2021 Patient encounter procedure Cassidy Arreola APRN.[employer] Work Phone: [facility] Start: 09-18-2021 End: 09-18-2021 ambulatory [facility] [facility] Work Phone: Hematology/Oncology Comment on above: Malignant neoplasm o f lower-inner quadrant of right breast of female, estrogen receptor positive (HCC) (Primary Dx) Start: 09-11-2021 Telephone encounter Pharmacist [facility] Comment on above: Anticoagulation Start: 09-11-2021 End: 09-11-2021 Patient encounter procedure Jayde Hebert MD Work Phone: OB/Gynecology Comment on above: Old laceration of ce rvix uteri (Primary Dx) Start: 09-10-2021 Telephone encounter Jayde Hebert MD Work Phone: OB/Gynecology Comment on above: Results Start: 09-06-2021 Telephone encounter Galina caballero MD Work Phone: [facility] [place] Comment on above: Patient Update Start: 09-05-2021 [...] 08-28-2021 E-mail encounter susan m caregiver Jayde Hebert MD Work Phone: [facility] Start: 08-28-2021 End: 08-28-2021 Patient encounter procedure Jayde Hebert MD Work Phone: OB/Gynecology Comment on above: Old laceration of ce rvix uteri (Primary Dx); Abnormal uterine bleeding (AUB) Start: 08-26-2021 End: 08-26-2021 Emergency department patient visit [facility] Start: 08-23-2021 ambulatory Jayde jackson MD Work Phone: OB/Gynecology Comment on above: PMB (postmenopausal bleeding) (Primary Dx); Endometrial thickening on ultrasound Start: 08-23-2021 Patient encounter procedure Jayde Hebert MD Work Phone: [facility] Start: 08-23-2021 End: 08-23-2021 Admission to same day surgery center [facility] Start: 08-22-2021 Telephone encounter Jer[facility] Comment on above: Anticoagulation Tele phone Fu (Home INR result) Start: 08-17-2021 Telephone encounter Corinna Dagoberto RPh P harmacy Ambulatory Tele[facility] Comment on [...] ultrasound Start: 08-15-2021 Telephone encounter An Ta APRN.[employer] Work Phone: [facility] [place] Comment on above: Results Start: 08-14-2021 Telephone encounter Nury Andres RPh P harmacy Ambulatory [facility] Comment on above: Anticoagulation Tele phone Fu (Home INR result) Start: 08-12-2021 ambulatory Daysi [employer] Comment on above: UTI Start: 08-10-2021 Telephone encounter An Ta APRN.[employer] Work Phone: [facility] [place] Comment on above: Results Start: 08-08-2021 End: 08-08-2021 Patient encounter procedure An Ta APRN.[employer] Work Phone: [facility] [place] Comment on above: History of recent ho spitalization (Primary Dx); Dysuria; Recurrent UTI; Cirrhosis of liver with ascites, unspecified hepatic cirrhosis type (HCC); Biliary colic Start: 07-31-2021 Telephone encounter Nury Andres RPh P harmacy Ambulatory [facility] Comment on above: Anticoagulation Tele phone Fu (Home INR result) Start: 07-27-2021 Telephone encounter Galina caballero MD Work Phone: [facility] [place] Comment on above: Agree to follow; Ord ers Start: 07-24-2021 E-mail encounter susan altamirano caregiver [facility] Start: 07-24-2021 Patient encounter procedure [facility] Orthopaedics Comment on above: Appointment Reschedu le Start: 07-24-2021 Telephone encounter Haley varghese PA-C Work Phone: Rheumatology Comment on above: Appointment Start: 07-24-2021 End: 07-24-2021 ambulatory [facility] [facility] Work Phone: Hematology/Oncology Comment on above: Malignant neoplasm o f lower-inner quadrant of right breast of female, estrogen receptor positive (HCC) (Primary Dx) Start: 07-23-2021 End: 07-23-2021 Departed Referred [facility] Start: 07-23-2021 Registered Referred [place] [id number] Start: 07-18-2021 Telephone encounter Marlin Ansari Formerly [facility] Ambulatory Telemanagement Comment on above: Anticoagulation Tele phone Fu Patient Update Start: 07-16-2021 End: 07-16-2021 Departed Referred [facility] 300 Start: 07-16-2021 Registered Referred [facility] 300 Start: 07-13-2021 End: 07-13-2021 Departed Referred [facility] 300 Start: 07-10-2021 ambulatory Galina Singh Work Phone: Internal Medicine [place] Start: 07-06-2021 Telephone encounter Coreen haro MD Work Phone: Gastroenterology Comment on above: Results Start: 07-05-2021 Telephone encounter Galina caballero MD Work Phone: Family Medicine [place] Comment on above: Pain (back & legs / Pt update) Start: 07-05-2021 End: 07-05-2021 Patient encounter procedure Johnny Turk MD Work Phone: General Surgery Comment on above: Calculus of gallblad gary without cholecystitis without obstruction (Primary Dx); Secondary biliary cirrhosis (HCC) Start: 07-03-2021 Telephone encounter Johnny Turk MD Work Phone: General Surgery Comment on above: Patient Question (ga llbladder ER [facility]) Start: 07-03-2021 End: 07-03-2021 Patient encounter procedure Alma Ta APRN.[employer] Work Phone: Internal Medicine [place] Comment on above: Dysuria (Primary Dx) ; Right upper quadrant abdominal pain; Chronic anticoagulation Start: 07-02-2021 End: 07-03-2021 Emergency department patient visit [facility]-Emergency Department Start: 06-26-2021 End: 06-26-2021 ambulatory Lab/[place] [facility] Work Phone: Hematology/Oncology Comment on above: Malignant neoplasm o f lower-inner quadrant of right breast of female, estrogen receptor positive (HCC) (Primary Dx) Start: 06-22-2021 Telephone encounter Corinna Arenas RPh P harmacy Ambulatory Telemanagement Comment on above: Anticoagulation Tele phone Fu (INR Home Test Result) Start: 06-20-2021 Telephone encounter Jerrica Waldrop Ph Pharmacy Ambulatory Telemanagement Comment on above: Anticoagulation Tele phone Fu (Home INR result) Start: 06-19-2021 Telephone encounter Basilia Cueto APRN.[employer] Work Phone: [facility] Comment on above: Results (urine cultu re) Start: 06-05-2021 End: 06-05-2021 Patient encounter procedure Aby Bruner DO Work Phone: Vascular Surgery Comment on above: Venous (peripheral) insufficiency (Primary Dx) Start: 05-23-2021 ambulatory Jerrica Rothman RPh [facility] Ambulatory Telemanagement Comment on above: INR in therapeutic r jeannine Start: 05-23-2021 E-mail encounter fro m caregiver Jerrica Rothman RPh [facility] Start: 05-17-2021 End: 05-17-2021 Subsequent hospital visit by physician Yulissa [facility] Work Phone: Radiology Comment on above: Cough [R05.9] Start: 05-17-2021 ambulatory Mercy claros RT(R) Radiology Comment on above: Results Start: 05-17-2021 Patient encounter procedure [facility] Ridley RT(R) [facility] [place] Start: 05-09-2021 ambulatory Jerrica Rothman [facility] Ambulatory Telemanagement Comment on above: INR in therapeutic r jeannine Start: 05-09-2021 E-mail encounter fro m caregiver Jerrica Steelcamila [facility] Start: 02-07-2021 Telephone encounter Galina caballero MD Work Phone: Internal Medicine [place] Comment on above: Medication Question Start: 11-27-2020 End: 11-27-2020 Subsequent hospital visit by physician Xr [facility] [place] Work Phone: Radiology Comment on above: Fever, unspecified f ever cause [R50.9] Start: 05-05-2020 End: 05-05-2020 Subsequent hospital visit by physician Xr [facility] [place] Work Phone: Radiology Comment on above: Chronic cough [R05] Procedures Date Procedure Procedure Detail Performing Clinician Start: 10-22-2024 XR forearm, [address] Galina Iraheta MD Work Phone: Start: 09-24-2024 XR forearm, [address] Galina Iraheta MD Work Phone: Start: 09-21-2024 Blood count complete auto&auto difrntl wbc Cassidy Arreola PATHOLOGY LABORATORY AIDE.[employer] Work Phone: Start: 09-21-2024 C-reactive protein Ammy Monterroso MD Work Phone: Start: 09-14-2024 Urine [...] Blood count complete auto&auto difrntl wbc Thalia Loc PANG Work Phone: Start: 05-31-2024 Vitamin D, 25-hydrox y measurement Dr. Galina Iraheta MD Work Phone: Comment on above: Vitamin D StatusDefi ciency: <20 ng/mL (50nmol/L)Insufficiency: 20-30 ng/mL (50-75 nmol/L)Sufficiency: 30-100 ng/mL (75-250 nmol/L)Toxicity: >100 ng/mL (>250 nmol/L) Start: 05-21-2024 Follow-up visit Follow Up JOHNY RÍOS LOC Start: 05-13-2024 Urnls dip stick/tabl et reagent [...] = 5P erformed at: BN - [facility] [address] [id number] Director: Jeremiah Bates MD, Phone: [phone] Start: 04-05-2024 Measurement of renal function Dr. Galina Iraheta MD Work Phone: Comment on above: GFR Calc Start: 04-05-2024 Percentage plasma ce ll count Dr. Galina Iraheta MD Work Phone: Start: 02-24-2024 Blood count complete auto&auto difrntl wbc Cassidy Blackmonenter PATHOLOGY LABORATORY AIDE.[employer] Work Phone: Start: 11-25-2023 Blood count complete [...] ribs unilatera l 2 views Cassidy Arreola PATHOLOGY LABORATORY AIDE.[employer] Work Phone: Start: 03-22-2022 Blood count complete [...] et rgnt auto w/o microscopy An Ta PATHOLOGY LABORATORY AIDE.[employer] Work Phone: Start: 07-03-2021 Computed tomography of abdomen and pelvis with intravenous contrast Start: 05-17-2021 Radiologic exam ches t 2 views Darline Hurley PATHOLOGY LABORATORY AIDE.[employer] Work Phone: Start: 01-12-2021 Antibody screen Comment on above: Performed By: #### 5 [id number] #### [facility] CLIA [id number] [address] [place] [address] Start: 01-09-2021 Colonoscopy Aby encarnacion DO Work Phone: Start: 11-27-2020 Radiologic exam ches t 2 views Joann Haynes PATHOLOGY LABORATORY AIDE.[employer] Work Phone: Start: 05-05-2020 Radiologic exam ches t 2 views Alma Shankar PATHOLOGY LABORATORY AIDE.[employer] Work Phone: Measurement of occul t blood in stool specimen using immunoassay Urine culture Urine culture Dr. Galina caballero Work Phone: Plan of Treatment Date Care Activity Detail Author Start: 09-22-2027 Diabetes Screening Diabetes Screening [facility] Start: 06-12-2027 Diabetes Screening Diabetes Screening [facility] Start: 02-23-2027 Diabetes Screening Diabetes Screening [facility] Start: 11-24-2026 Diabetes Screening Diabetes Screening [facility] Start: 07-03-2026 Diabetes Screening Diabetes Screening [facility] Start: 06-05-2025 Screening for osteoporosis Bone Density Screening [facility] Start: 03-25-2025 End: 03-25-2025 Follow-up encounter 03/25/2025 11:20 AM EST [facility] [address] [place] [id number] Thalia Monterroso MD [address] [place] [id number] Follow-up RA Rheumatology Comment on above: Follow-up RA Start: 03-23-2025 End: 03-23-2025 ambulatory Hematology/Oncology Comment on above: CBC/IRON STUDIES(PORT)/OV TODAY 6 MO OV* Start: 03-14-2025 DIABETES SCREEN DIABETES SCREEN [facility] Start: 03-14-2025 Diabetes Screening Diabetes Screening [facility] Start: 01-14-2025 End: 01-14-2025 Patient encounter procedure 01/14/2025 9:20 AM EDT Office Visit Neurology [address] [place] [address] [id number] Nathaniel Herrera Jr., MD [address] [place], [place] [phone] confusion Neurology Comment on above: confusion Start: 12-22-2024 End: 12-22-2024 ambulatory 12/22/2024 11:15 AM EDT Infusion Center Hematology/Oncology [address] [place], [place] [phone] [place], Lab/[place] [facility] [address], [place] [phone] PORT FLUSH* Hematology/Oncology Comment on above: PORT FLUSH* Start: 11-23-2024 End: 11-23-2024 ambulatory 11/23/2024 11:40 AM EDT [facility] [address] [place] [id number] Thalia Monterroso MD [address] [place] [address] [place] [address] ra f/u Rheumatology Comment on above: ra f/u Start: 11-15-2024 Influenza vaccination [facility] Start: 10-22-2024 XR forearm, 2 views Forearm 2 Views [facility] Start: 10-22-2024 XR Radius and Ulna 2 Views [facility] Start: 09-24-2024 XR forearm, 2 views Forearm 2 Views [facility] Start: 09-24-2024 XR Radius and Ulna 2 Views [facility] Start: 09-21-2024 End: 09-21-2024 ambulatory Hematology/Oncology Comment on above: 6 MO OV* CBC/IRON STUDIES(POR T)/OV TODAY Start: 09-14-2024 End: 09-14-2024 [facility] Start: 09-03-2024 Plain x-ray of wrist Wrist min 3 Views [facility] Start: 09-03-2024 XR Wrist GE 3 Views [facility] Start: 08-27-2024 End: 08-27-2024 ambulatory 08/27/2024 10:00 AM EDT [facility] [address] [place] [address] Thalia Monterroso MD [facility] [place] [address] RA Rheumatology Comment on above: RA Start: 08-18-2024 XR forearm, 2 views Forearm 2 Views [facility] Start: 08-18-2024 XR Radius and Ulna 2 Views [facility] Start: 08-13-2024 Plain x-ray of humerus Humerus min 2 Views [facility] Start: 08-13-2024 XR forearm, 2 views Forearm 2 Views [facility] Start: 08-13-2024 XR Humerus GE 2 Views [facility] Start: 08-13-2024 XR Radius and Ulna 2 Views [facility] Start: 08-13-2024 DIABETES SCREEN DIABETES SCREEN [facility] Start: 08-06-2024 Venous catheter care management [facility] Start: 2024 DIABETES SCREEN DIABETES SCREEN [facility] Start: 07-11-2024 DIABETES SCREEN DIABETES SCREEN [facility] Start: 07-06-2024 DIABETES SCREEN DIABETES SCREEN [facility] Start: 07-05-2024 DIABETES SCREEN DIABETES SCREEN [facility] Start: 06-11-2024 End: 06-11-2024 ambulatory 06/11/2024 2:00 PM EDT Infusion Center Hematology/Oncology [address] [place] [address] Wstr, Lab/[place] [facility] [address] [place] [address] port flush* Hematology/Oncology Comment on above: port flush* Start: 06-01-2024 End: 06-01-2024 Patient encounter procedure 06/01/2024 10:00 AM EDT Office Visit URO/Gynecology [address] [place] [address] Vikash Sylvester APRN.[employer] [address] [place] [address] FOLLOWUP URO/Gynecology Comment on above: FOLLOWUP Start: 05-22-2024 DIABETES SCREEN DIABETES SCREEN [facility] Start: 05-21-2024 End: 05-21-2024 Patient encounter procedure 05/21/2024 11:40 AM EST Office Visit Cardiology [address] [address] Annmarie Shell MD [address] [place] [address] follow up Cardiology Comment on above: follow up Start: 05-19-2024 End: 05-19-2024 ambulatory 05/19/2024 11:00 AM EST Infusion Center Hematology/Oncology [address] [place] [address] 2ND Hematology/Oncology Comment on above: 2ND Start: 03-25-2024 End: 03-25-2024 ambulatory 03/25/2024 10:00 AM EST Visit (SP) Office Hematology/Oncology [address] [place] [address] 2ND Hematology/Oncology Comment on above: 2ND Start: 03-24-2024 End: 03-24-2024 ambulatory 03/24/2024 11:00 AM EST Infusion Center Hematology/Oncology [address] [place] [address] 2ND Hematology/Oncology Comment on above: 2ND Start: 03-19-2024 End: 03-19-2024 Patient encounter procedure Radiology Comment on above: Bilateral hip pain [M25.551, M25.552] CT Pelvis/Chest/Abd Start: 03-19-2024 End: 03-19-2024 ambulatory 03/19/2024 9:30 AM EST Infusion Center Hematology/Oncology [address] [place] [address] Wstr, Lab/[place] [facility] [address] [place] [address] CREATININE(S)(PORT)/KEEP ACCESSED FOR IMAGING* Hematology/Oncology Comment on above: CREATININE(S)(PORT)/KEEP ACCESSED FOR IM AGING* Start: 03-17-2024 Advance Directive Discussion Advance Directive Discussion [facility] Start: 03-12-2024 End: 03-12-2024 ambulatory 03/12/2024 2:30 PM EST Infusion Center Hematology/Oncology [address] [place] [address] 2nd Hematology/Oncology Comment on above: 2nd Start: 03-09-2024 End: 03-09-2024 Patient encounter procedure Cat Scan Comment on above: CT Pelvis/Chest/Abd Start: 03-08-2024 End: 03-08-2024 ambulatory 03/08/2024 3:00 PM EST Infusion Center Hematology/Oncology [address] [place] [address] 2nd Hematology/Oncology Comment on above: 2nd Start: 03-05-2024 End: 03-05-2024 ambulatory Rheumatology Comment on above: PRM f up 2nd Start: 03-03-2024 End: 03-03-2024 ambulatory 03/03/2024 3:00 PM EST Infusion Center Hematology/Oncology [address] [place] [address] 2nd Hematology/Oncology Comment on above: 2nd Start: 02-24-2024 End: 05-25-2024 CREATININE BLD CREATININE BLD Lab Routine Iron deficiency anemia due to chronic blood loss Bilateral hip pain Generalized abdominal pain Abdominal bloating Personal history of breast cancer Occult blood in stools Expected: 02/24/2024, Expires: 05/25/2024 [facility] Comment on above: Expected: 02/24/2024, Expires: 5 Start: 02-24-2024 End: 02-24-2024 ambulatory Hematology/Oncology Comment on above: CBC/iron studies (PORT)/OV TODAY* 6MO OV Start: 02-16-2024 End: 02-16-2024 Patient encounter procedure 02/16/2024 2:00 PM EST Office Visit Cardiology [address] [address] Annmarie Shell MD [address] [place], [place] [phone] follow up Cardiology Comment on above: follow up Start: 01-29-2024 End: 01-29-2024 ambulatory 01/29/2024 11:00 AM EST Visit (SP) Office Hematology/Oncology [address] [place] [address] 2ND Hematology/Oncology Comment on above: 2ND Start: 01-28-2024 End: 01-28-2024 ambulatory Hematology/Oncology Comment on above: 2ND Start: 12-16-2023 End: 12-16-2023 Patient encounter procedure 12/16/2023 2:20 PM EDT Office Visit Cardiology [address] [id number] Cecilio Ibarra, [address] [place], [place] [id number] 6 month follow up Cardiology Comment on above: 6 month follow up Start: 12-04-2023 End: 12-04-2023 Infusion Center Hematology/Oncology Comment on above: Q8WK RENFLEXIS(PORT)/ORDERING PROV DR RA Pena/MDCR* 2ND Start: 11-25-2023 End: 02-24-2024 Ferritin [Mass/volume] in Serum or Plasma [facility] Comment on above: Expected: 11/25/2023, Expires: 4 Start: 11-25-2023 End: 02-24-2024 Iron and Iron binding capacity panel - Serum or Plasma [facility] Work Phone: Comment on above: Expected: 11/25/2023, Expires: Start: 11-25-2023 End: 11-25-2023 ambulatory 11/25/2023 1:30 PM EDT Infusion Center Hematology/Oncology [address] [place], [place] [phone] W[place], Lab/[place] [facility] [address] [place] [address] CBC/iron studies (PORT)/OV TODAY* Hematology/Oncology Comment on above: CBC/iron studies (PORT)/OV TODAY* Start: 11-16-2023 Covid-19 Vaccine ( season) Covid-19 Vaccine ( season) [facility] Start: 11-16-2023 Covid-19 Vaccine () Covid-19 Vaccine () [facility] Start: 11-16-2023 Influenza vaccination [facility] Start: 11-14-2023 End: 02-13-2024 25-hydroxyvitamin D3 [Mass/volume] in Serum or Plasma VITAMIN D 25 HYDROXY Lab Routine Rheumatoid arthritis involving multiple sites, unspecified whether rheumatoid factor present (HCC) Senile osteoporosis Expected: 11/14/2023, Expires: 02/13/2024 [facility] Work Phone: Comment on above: Expected: 11/14/2023, Expires: Start: 11-14-2023 End: 11-14-2023 ambulatory Rheumatology Comment on above: PRM f up Start: 10-09-2023 End: 10-09-2023 Infusion Center 10/09/2023 11:00 AM EDT Infusion Center Hematology/Oncology [address] [place] [address] Q6WK RENFLEXIS(PORT)/ORDERING PROV DR MONTERROSO/MDCR* THEN Q8WK Hematology/Oncology Comment on above: Q6WK RENFLEXIS(PORT)/ORDERING PROV DR RA Pena/MDCR* THEN Q8WK Start: 09-12-2023 End: 09-12-2023 ambulatory 09/12/2023 11:00 AM EDT Infusion Center Hematology/Oncology [address] [place] [address] daughter requested time Hematology/Oncology Comment on above: daughter requested time Start: 09-11-2023 End: 09-11-2023 Infusion Center 09/11/2023 9:00 AM EDT Infusion Center Hematology/Oncology [address] [place] [address] Q2WK RENFLEXIS(PORT)/ORDERING PROV DR MONTERROSO/MARCIALR* wk0,2,6,then q8wk Hematology/Oncology Comment on above: Q2WK RENFLEXIS(PORT)/ORDERING PROV DR RA Pena/MDCR* wk0,2,6,then q8wk Start: 08-28-2023 End: 08-28-2023 Infusion Center 08/28/2023 11:00 AM EDT Infusion Center Hematology/Oncology [address] [place] [address] START Q0WK RENFLEXIS(PORT)/ORDERING PROV DR MONTERROSO/MARCIALR* wk0,2,6,then q8wk Hematology/Oncology Comment on above: START Q0WK RENFLEXIS(PORT)/ORDERING PROV DR MONTERROSO/NISH* wk0,2,6,then q8wk Start: 08-19-2023 End: 08-19-2023 ambulatory Hematology/Oncology Comment on above: CBC/iron studies (PORT)/OV TODAY* 6MO OV(PORT)/LABS EA RLY* Start: 07-04-2023 End: 10-03-2023 BLOOD TB SCREEN [facility] Work Phone: Comment on above: Expected: 07/04/2023, Expires: Start: 07-04-2023 End: 10-03-2023 Chronic hepatitis differentiation between hepatitis B and C virus panel - Serum or Plasma [facility] Work Phone: Comment on above: Expected: 07/04/2023, Expires: Start: 07-04-2023 End: 10-03-2023 Cyclic citrullinated peptide IgG Ab [Units/volume] in Serum or Plasma [facility] Work Phone: Comment on above: Expected: 07/04/2023, Expires: 4 Start: 05-20-2023 End: 08-19-2023 CBC W Auto Differential panel - Blood CBC + DIFF Lab STAT Malignant neoplasm of lower-inner quadrant of right breast of female, estrogen receptor positive (HCC) Iron deficiency anemia due to chronic blood loss Expected: 05/20/2023, Expires: 08/19/2023 [facility] Work Phone: Comment on above: Expected: 05/20/2023, Expires: 4 Start: 05-20-2023 End: 08-19-2023 Ferritin [Mass/volume] in Serum or Plasma FERRITIN BLD Lab Routine Malignant neoplasm of lower-inner quadrant of right breast of female, estrogen receptor positive (HCC) Iron deficiency anemia due to chronic blood loss Expected: 05/20/2023, Expires: 08/19/2023 [facility] Work Phone: Comment on above: Expected: 05/20/2023, Expires: Start: 05-20-2023 End: 08-19-2023 Iron and Iron binding capacity panel - Serum or Plasma IRON + TIBC Lab Routine Malignant neoplasm of lower-inner quadrant of right breast of female, estrogen receptor positive (HCC) Iron deficiency anemia due to chronic blood loss Expected: 05/20/2023, Expires: 08/19/2023 [facility] Work Phone: Comment on above: Expected: 05/20/2023, Expires: 4 Start: 03-17-2023 Advance Directive Discussion Advance Directive Discussion [facility] Start: 11-17-2022 Urine microalbumin profile [facility] Start: 11-15-2022 Covid-19 Vaccine () Covid-19 Vaccine () [facility] Start: 11-15-2022 Influenza vaccination [facility] Start: 09-19-2022 End: 11-19-2022 CBC panel - Blood by Automated count CBC Lab Routine Paroxysmal atrial fibrillation (HCC) Rheumatic mitral regurgitation Essential hypertension Mixed hyperlipidemia Obstructive sleep apnea syndrome Shortness of breath PAF (paroxysmal atrial fibrillation) (HCC) SVT (supraventricular tachycardia) (HCC) Expected: 09/19/2022, Expires: 11/19/2022 [facility] Work Phone: Comment on above: Expected: 09/19/2022, Expires: 3 Start: 04-17-2022 End: 06-17-2022 CBC W Auto Differential panel - Blood CBC + DIFF Lab STAT Iron deficiency anemia due to chronic blood loss Malignant neoplasm of lower-inner quadrant of right breast of female, estrogen receptor positive (HCC) Expected: 04/17/2022, Expires: 06/17/2022 [facility] Work Phone: Comment on above: Expected: 04/17/2022, Expires: 3 Start: 04-17-2022 End: 06-17-2022 Ferritin [Mass/volume] in Serum or Plasma FERRITIN BLD Lab Routine Iron deficiency anemia due to chronic blood loss Malignant neoplasm of lower-inner quadrant of right breast of female, estrogen receptor positive (HCC) Expected: 04/17/2022, Expires: 06/17/2022 [facility] Work Phone: Comment on above: Expected: 04/17/2022, Expires: 3 Start: 04-17-2022 End: 06-17-2022 Iron and Iron binding capacity panel - Serum or Plasma IRON + TIBC Lab Routine Iron deficiency anemia due to chronic blood loss Malignant neoplasm of lower-inner quadrant of right breast of female, estrogen receptor positive (HCC) Expected: 04/17/2022, Expires: 06/17/2022 [facility] Work Phone: Comment on above: Expected: 04/17/2022, Expires: 3 Start: 04-17-2022 End: 06-17-2022 RETIC COUNT RETIC COUNT Lab Routine Iron deficiency anemia due to chronic blood loss Malignant neoplasm of lower-inner quadrant of right breast of female, estrogen receptor positive (HCC) Expected: 04/17/2022, Expires: 06/17/2022 [facility] Work Phone: Comment on above: Expected: 04/17/2022, Expires: 3 Start: 04-17-2022 End: 06-17-2022 Transferrin receptor.soluble [Mass/volume] in Serum or Plasma [employer]OR Lab Routine Iron deficiency anemia due to chronic blood loss Malignant neoplasm of lower-inner quadrant of right breast of female, estrogen receptor positive (HCC) Expected: 04/17/2022, Expires: 06/17/2022 [facility] Work Phone: Comment on above: Expected: 04/17/2022, Expires: 3 Start: 03-17-2022 ADVANCE DIRECTIVE DISCUSSION ADVANCE DIRECTIVE DISCUSSION [facility] Start: 03-12-2022 End: 05-12-2022 CBC W Ordered Manual Differential panel - Blood PATHOLOGIST INTERPRETATION WITH CBC AND DIFF Lab Routine Iron deficiency anemia due to chronic blood loss Expected: 03/12/2022, Expires: 05/12/2022 [facility] Work Phone: Comment on above: Expected: 03/12/2022, Expires: 3 Start: 03-06-2022 Administration of blood product [facility] Start: 03-06-2022 [facility] Start: 01-09-2022 Colonoscopy COLONOSCOPY [facility] Start: 01-09-2022 Screening for malignant neoplasm of colon Colonoscopy [facility] Start: 12-28-2021 Administration of blood product [facility] Start: 11-15-2021 Influenza vaccination INFLUENZA (#1) [facility] Start: 10-29-2021 End: 12-29-2021 CBC W Auto Differential panel - Blood CBC + DIFF Lab Routine BRBPR (bright red blood per rectum) Expected: 10/29/2021, Expires: 12/29/2021 [facility] Work Phone: Comment on above: Expected: 10/29/2021, Expires: 2 Start: 10-18-2021 [facility] Work Phone: Start: 10-18-2021 Administration of blood product [facility] Work Phone: Start: 10-18-2021 [facility] Work Phone: Start: 10-15-2021 End: 12-15-2021 CBC W Auto Differential panel - Blood CBC + DIFF Lab Routine Chronic anticoagulation Expected: 10/15/2021, Expires: 12/15/2021 [facility] Work Phone: Comment on above: Expected: 10/15/2021, Expires: 2 Start: 10-15-2021 End: 12-15-2021 PT panel - Platelet poor plasma by Coagulation assay PROTHROMBIN TIME/PT Lab Routine Chronic anticoagulation Expected: 10/15/2021, Expires: 12/15/2021 [facility] Work Phone: Comment on above: Expected: 10/15/2021, Expires: 2 Start: 08-23-2021 Anes hysteroscopy&/hysterosal pingography w/bx ANESTH HYSTEROSCOPE/GRAPH [facility] Work Phone: Start: 08-23-2021 Hysteroscopy bx endometrium&/polypc w/wo d&c HYSTEROSCOPY BIOPSY [facility] Work Phone: Start: 08-23-2021 Patient discharge [facility] Work Phone: Start: 08-23-2021 Ambulation without limitation [facility] Work Phone: Start: 08-23-2021 Medical regimen orders management [facility] Work Phone: Start: 08-23-2021 Medication education [facility] Work Phone: Start: 08-23-2021 Taking patient vital signs [facility] Work Phone: Start: 08-23-2021 Vital signs measurements [facility] Work Phone: Start: 08-23-2021 [facility] Work Phone: Start: 08-10-2021 End: 10-10-2021 Bacteria identified in Urine by Culture URINE CULTURE Microbiology Routine Dysuria Expected: 08/10/2021, Expires: 10/10/2021 [facility] Work Phone: Comment on above: Expected: 08/10/2021, Expires: 2 Start: 04-18-2021 Screening for malignant neoplasm of cervix Cervical Cancer Screening [facility] Start: 03-24-2021 COVID-19 VACCINE (4 - Booster for Moderna series) COVID-19 VACCINE (4 - Booster for Moderna series) [facility] Start: 03-17-2021 ADVANCE DIRECTIVE DISCUSSION ADVANCE DIRECTIVE DISCUSSION [facility] Start: 01-17-2021 COVID-19 VACCINE (4 - Booster for Moderna series) COVID-19 VACCINE (4 - Booster for Moderna series) [facility] Start: 01-17-2021 COVID-19 VACCINE (4 - Moderna series) COVID-19 VACCINE (4 - Moderna series) [facility] Start: 08-02-2011 Shingrix Vaccine (1 of 2) Shingrix Vaccine (1 of 2) [facility] Start: 08-02-2011 SHINGRIX VACCINE (2 of 3) SHINGRIX VACCINE (2 of 3) [facility] Start: 07-13-2011 RSV Vaccine (1 - 1-dose 75+ series) RSV Vaccine (1 - 1-dose 75+ series) [facility] Start: 09-15-2003 Medicare Annual Wellness Visit Medicare Annual Wellness Visit [facility] Start: 1996 HEPATITIS B (1 of 3 - Risk 3-dose series) HEPATITIS B (1 of 3 - Risk 3-dose series) [facility] Start: 1996 Hepatitis B Vaccine (1 of 3 - Risk 3-dose series) Hepatitis B Vaccine (1 of 3 - Risk 3-dose series) [facility] Start: 1996 RSV Vaccine (1 - 1-dose 60+ series) RSV Vaccine (1 - 1-dose 60+ series) [facility] Start: [birth year]13-1954 HEPATITIS A (1 of 2 - Risk 2-dose series) HEPATITIS A (1 of 2 - Risk 2-dose series) [facility] Start: 07-13-1955 Hepatitis A Vaccine (1 of 2 - Risk 2-dose series) Hepatitis A Vaccine (1 of 2 - Risk 2-dose series) [facility] Start: 07[birth year]13-1954 HEPATITIS B (1 of 3 - Risk 3-dose series) HEPATITIS B (1 of 3 - Risk 3-dose series) [facility] Start: 1954 Anxiety Screening Anxiety Screening [facility] Start: 1937 HEPATITIS A (1 of 2 - Risk 2-dose series) [facility] 25-hydroxyvitamin D3 [Mass/volume] in Serum or Plasma VITAMIN D 25 HYDROXY Lab Routine Rheumatoid arthritis involving multiple sites, unspecified whether rheumatoid factor present (HCC) Senile osteoporosis 11/25/2023 1:46 PM EDT [facility] Work Phone: Bacteria identified in Urine by Culture URINE CULTURE Microbiology Routine Dysuria Ordered: 08/08/2021 [facility] Work Phone: Comment on above: Ordered: 08/08/2021 Bacteria identified in Urine by Culture URINE CULTURE Microbiology Routine Recurrent UTI Mixed stress and urge urinary incontinence 08/30/2021 2:06 PM EDT [facility] Work Phone: End: 09-26-2022 Bacteria identified in Urine by Culture URINE CULTURE Microbiology Routine Recurrent UTI 12 Occurrences starting 09/26/2021 until 09/26/2022 [facility] Work Phone: Comment on above: 12 Occurrences starting 09/26/2021 until 09/26/2022 Bacteria identified in Urine by Culture Urine Culture [facility] Work Phone: End: 11-13-2024 C reactive protein [Mass/volume] in Serum or Plasma C-REACTIVE PROTEIN Lab Routine Rheumatoid arthritis involving multiple sites, unspecified whether rheumatoid factor present (HCC) Senile osteoporosis Every 3 months for 5 Occurrences starting 11/14/2023 until 11/13/2024 [facility] Comment on above: Every 3 months for 5 Occurrences startin g 11/14/2023 until 11/13/2024 C reactive protein [Mass/volume] in Serum or Plasma C-REACTIVE PROTEIN Lab Routine Rheumatoid arthritis involving multiple sites, unspecified whether rheumatoid factor present (HCC) Senile osteoporosis 11/25/2023 1:46 PM EDT [facility] C reactive protein [Mass/volume] in Serum or Plasma C-REACTIVE PROTEIN Lab Routine Rheumatoid arthritis involving multiple sites, unspecified whether rheumatoid factor present (HCC) Senile osteoporosis 02/24/2024 1:28 PM EST [facility] Work Phone: C reactive protein [Mass/volume] in Serum or Plasma C-REACTIVE PROTEIN Lab Routine Rheumatoid arthritis involving multiple sites, unspecified whether rheumatoid factor present (HCC) Senile osteoporosis 06/11/2024 1:54 PM EDT [facility] End: 11-13-2024 CBC W Auto Differential panel - Blood COMPLETE BLOOD COUNT AND DIFFERENTIAL Lab Routine Rheumatoid arthritis involving multiple sites, unspecified whether rheumatoid factor present (HCC) Senile osteoporosis Every 3 months for 5 Occurrences starting 11/14/2023 until 11/13/2024 [facility] Comment on above: Every 3 months for 5 Occurrences startin g 11/14/2023 until 11/13/2024 End: 11-13-2024 Comprehensive metabolic 2000 panel - Serum or Plasma COMPREHENSIVE METABOLIC PANEL Lab Routine Rheumatoid arthritis involving multiple sites, unspecified whether rheumatoid factor present (HCC) Senile osteoporosis Every 3 months for 5 Occurrences starting 11/14/2023 until 11/13/2024 [facility] Comment on above: Every 3 months for 5 Occurrences startin g 11/14/2023 until 11/13/2024 End: 03-25-2025 CT Abdomen and Pelvis W contrast IV CT ABD/PEL W IVCON Radiology Routine Iron deficiency anemia due to chronic blood loss Bilateral hip pain Generalized abdominal pain Abdominal bloating Personal history of breast cancer Occult blood in stools 1 Occurrences starting 02/24/2024 until 03/25/2025 [facility] Comment on above: 1 Occurrences starting 02/24/2024 until 03/25/2025 CT Abdomen and Pelvi s W contrast IV CT ABD/PEL W IVCON Radiology Routine Iron deficiency anemia due to chronic blood loss Bilateral hip pain Generalized abdominal pain Abdominal bloating Personal history of breast cancer Occult blood in stools 03/19/2024 11:42 AM EST [facility] Work Phone: End: 03-25-2025 CT Chest W contrast IV CT CHEST W IVCON Radiology Routine Iron deficiency anemia due to chronic blood loss Bilateral hip pain Generalized abdominal pain Abdominal bloating Personal history of breast cancer Occult blood in stools 1 Occurrences starting 02/24/2024 until 03/25/2025 [facility] Comment on above: 1 Occurrences starting 02/24/2024 until 03/25/2025 CT Chest W contrast IV CT CHEST W IVCON Radiology Routine Iron deficiency anemia due to chronic blood loss Bilateral hip pain Generalized abdominal pain Abdominal bloating Personal history of breast cancer Occult blood in stools 03/19/2024 11:42 AM EST [facility] DXA Skeletal system.axial Views for bone density DXA-AXIAL SKELETON Radiology Routine On prednisone therapy Screening for osteoporosis 06/06/2023 2:38 PM EDT [facility] Work Phone: End: 09-05-2022 ECG COMPLETE [facility] Work Phone: Comment on above: 1 Occurrences starting 09/05/2021 until 09/05/2022 End: 11-13-2024 Erythrocyte sedimentation rate SEDIMENTATION RATE, WESTERGREN Lab Routine Rheumatoid arthritis involving multiple sites, unspecified whether rheumatoid factor present (HCC) Senile osteoporosis Every 3 months for 5 Occurrences starting 11/14/2023 until 11/13/2024 [facility] Comment on above: Every 3 months for 5 Occurrences startin g 11/14/2023 until 11/13/2024 Erythrocyte sedimentation rate SEDIMENTATION RATE, WESTERGREN Lab Routine Rheumatoid arthritis involving multiple sites, unspecified whether rheumatoid factor present (HCC) Senile osteoporosis 06/11/2024 1:54 PM EDT [facility] Work Phone: Ferritin [Mass/volum e] in Serum or Plasma FERRITIN Lab Routine Malignant neoplasm of lower-inner quadrant of right breast of female, estrogen receptor positive (HCC) Iron deficiency anemia due to chronic blood loss 02/24/2024 1:28 PM EST [facility] Work Phone: Ferritin [Mass/volum e] in Serum or Plasma FERRITIN Lab Routine Personal history of breast cancer Iron deficiency anemia due to chronic blood loss 09/21/2024 1:30 PM EDT [facility] Work Phone: Iron and Iron bindin g capacity panel - Serum or Plasma IRON AND TIBC Lab Routine Malignant neoplasm of lower-inner quadrant of right breast of female, estrogen receptor positive (HCC) Iron deficiency anemia due to chronic blood loss 02/24/2024 1:28 PM EST [facility] OCCULT BLD EXAM-DIAG OCCULT BLD EXAM-DIAG Microbiology Routine Iron deficiency anemia due to chronic blood loss Ordered: 03/12/2022 [facility] Work Phone: Comment on above: Ordered: 03/12/2022 PATHOLOGIST INTERPRETATION CBC/DIFF PATHOLOGIST INTERPRETATION CBC/DIFF Lab STAT Iron deficiency anemia due to chronic blood loss 03/22/2022 1:36 PM EST [facility] [email or web address] Work Phone: Patient Education [facility] Work Phone: Patient referral [facility] Work Phone: PT panel - Platelet poor plasma by Coagulation assay PROTHROMBIN TIME/PT Lab Routine Chronic anticoagulation 10/16/2021 9:44 AM EDT [facility] Work Phone: Urinalysis complete panel - Urine [facility] Work Phone: Urine culture [facility] End: 03-25-2025 XR HIP BILATERAL 5V PEL/AP/LAT EACH HIP XR HIP BILATERAL 5V PEL/AP/LAT EACH HIP Radiology Routine Bilateral hip pain 1 Occurrences starting 02/24/2024 until 03/25/2025 [facility] Work Phone: Comment on above: 1 Occurrences starting 02/24/2024 until 03/25/2025 XR HIP BILATERAL 5V PEL/AP/LAT EACH HIP XR HIP BILATERAL 5V PEL/AP/LAT EACH HIP Radiology Routine Bilateral hip pain 03/19/2024 10:00 AM EST [facility] [email or web address] Work Phone: End: 07-09-2024 XR Knee - bilateral 4 Views XR KNEE GENERAL 4V AP BOTH/PA BOTH/LAT/MERC BILATERAL Radiology Routine Primary osteoarthritis of both knees 1 Occurrences starting 06/10/2023 until 07/09/2024 [facility] Work Phone: Comment on above: 1 Occurrences starting 06/10/2023 until 07/09/2024 XR Knee - bilateral 4 Views XR KNEE GENERAL 4V AP BOTH/PA BOTH/LAT/MERC BILATERAL Radiology Routine Primary osteoarthritis of both knees 06/18/2023 8:26 AM EDT [facility] Work Phone: End: 07-05-2023 XR RIBS 2V AP/OBL RIGHT XR RIBS 2V AP/OBL RIGHT Radiology Routine Personal history of breast cancer Rib pain on right side 1 Occurrences starting 06/05/2022 until 07/05/2023 [facility] Work Phone: Comment on above: 1 Occurrences starting 06/05/2022 until 07/05/2023 XR RIBS 2V AP/OBL RIGHT XR RIBS 2V AP/OBL RIGHT Radiology Routine Personal history of breast cancer Rib pain on right side 06/05/2022 12:04 PM EDT [facility] Work Phone: End: 12-25-2023 XR WRIST GENERAL 3V PA/LAT/OBL RIGHT XR WRIST GENERAL 3V PA/LAT/OBL RIGHT Radiology Routine Pain in right wrist 1 Occurrences starting 11/25/2022 until 12/25/2023 [facility] Work Phone: Comment on above: 1 Occurrences starting 11/25/2022 until 12/25/2023 XR WRIST GENERAL 3V PA/LAT/OBL RIGHT XR WRIST GENERAL 3V PA/LAT/OBL RIGHT Radiology Routine Pain in right wrist 11/25/2022 2:29 PM EDT [facility] Work Phone: [facility] Immunizations Immunization Date Immunization Notes Care Provider Kevin evans 01-18-2021 influenza, high-dose , quadrivalent vaccine (FLUZONE HIGH DOSE QUADRIVALENT) Aby Bruner DO Work Phone: [facility] Work Phone: 01-18-2021 influenza virus vaccine, unspecified formulation Stella Preciado PA-C Work Phone: [facility] 11-22-2020 COVID-19 vaccine, ag e 12+ yr ([employer] - PURPLE TOP) Aby Bruner DO Work Phone: [facility] 05-04-2020 COVID-19 vaccine, fu ll dose (MODERNA) Aby Bruner DO Work Phone: [facility] 04-06-2020 COVID-19 vaccine, fu ll dose (MODERNA) Aby Bruner DO Work Phone: [facility] 12-18-2019 influenza, high-dose , quadrivalent vaccine (FLUZONE HIGH DOSE QUADRIVALENT) Aby Bruner DO Work Phone: [facility] 12-30-2018 influenza, high dose seasonal, preservative-free Aby Bruner DO Work Phone: [facility] Work Phone: 12-09-2017 influenza, high dose seasonal, preservative-free Aby Bruner DO Work Phone: [facility] 12-02-2016 influenza, high dose seasonal, preservative-free Aby Bruenr DO Work Phone: [facility] Work Phone: 12-05-2015 influenza, high dose seasonal, preservative-free Aby Bruner DO Work Phone: [facility] 01-10-2015 pneumococcal conjuga te vaccine, 13 valent Aby Cosbyle DO Work Phone: [facility] Work Phone: 12-12-2014 influenza, high dose seasonal, preservative-free Aby Bruner DO Work Phone: [facility] 12-22-2013 influenza, seasonal, injectable Aby Bruner DO Work Phone: [facility] 01-09-2013 influenza virus vaccine, unspecified formulation Aby Bruner DO Work Phone: [facility] Work Phone: 11-17-2012 tetanus toxoid, redu issac diphtheria toxoid, and acellular pertussis vaccine, adsorbed Aby Bruner DO Work Phone: [facility] 01-16-2012 influenza virus vaccine, unspecified formulation Aby Bruner DO Work Phone: [facility] 06-07-2011 zoster vaccine, live Opal Bruner DO Work Phone: [facility] 02-01-2011 influenza virus vaccine, unspecified formulation Aby Bruner DO Work Phone: [facility] Work Phone: 01-29-2010 influenza virus vaccine, unspecified formulation Aby Bruner DO Work Phone: [facility] 12-24-2008 influenza virus vaccine, unspecified formulation Aby Bruner DO Work Phone: [facility] 01-20-2008 influenza virus vaccine, unspecified formulation Aby Bruner DO Work Phone: [facility] 12-21-2007 pneumococcal polysaccharide vaccine, 23 valent Aby Bruner DO Work Phone: [facility] Work Phone: 01-14-2007 influenza virus vaccine, unspecified formulation Aby Bruner DO Work Phone: [facility] Work Phone: 01-27-2006 influenza virus vaccine, unspecified formulation Aby Bruner DO Work Phone: [facility] 01-24-2005 influenza virus vaccine, unspecified formulation Aby Bruner DO Work Phone: [facility] Work Phone: 05-15-2002 tetanus and diphther ia toxoids, adsorbed, preservative free, for adult use (2 Lf of tetanus toxoid and 2 Lf of diphtheria toxoid) Aby Bruner DO Work Phone: [facility] Work Phone: NEGATED: Highlighted row has not occurred!01-12-2021 influenza, high-dose, quadrivalent vaccine (FLUZONE HIGH DOSE QUADRIVALENT) Aby Bruner DO Work Phone: [facility] Comment on above: Deferred: Patient Re fused - states she wants to wait to get it at scheduled appt in Nov Payers Date Payer Category Payer Medicaid MEDICAID [facility] [id number] 2024 Medicaid [id number] 2023 Self-pay [id number] [address] [facility] D[facility] SUPPLEMENT [id number] 2016 Unknown ANTHEM ANTHEM ME DICARE SUPPLEMENT [id number] 2016-Present [phone] [address] [place] [address] Indemnity [id number] 2016 Unknown ANTHEM ANTHEM ME DICARE SUPPLEMENT [id number] 2016-Present [phone] [address] [place] [address] Indemnity [id number] 2003 Medicare MEDICARE MEDICAR E A AND B [id number] 2003-Present [phone] [place] [address] Medicare [id number] 2003 Medicare [id number] 2003 Unknown [id number] 2001 Medicare [id number] Unknown [id number] 2.16.840.1.070842.3.579.2. 462 Unknown [id number] 2.16840.1.977979.3.579.2. 462 Unknown [id number] 2.16840.1.441153.3.579.2. 462 Unknown [id number] 2.16.840.1.432697.3.579.2. 462 Unknown [id number] 2.16.840.1.101803.3.579.2. 462 Unknown [id number] 2.16.840.1.384731.3.579.2. 462 Unknown [id number] 2.16.840.1.891630.3.579.2. 462 Unknown [id number] 2.16.840.1.165747.3.579.2. 462 Unknown [id number] 2.16.840.1.823056.3.579.2. 462 Unknown [id number] 2.16840.1.401650.3.579.2. 462 Unknown [id number] 2.16.840.1.198989.3.579.2. 462 Unknown [id number] 2.16840.1.557878.3.579.2. 462 Unknown [id number] 2.16840.1.760011.3.579.2. 462 Unknown [id number] 2.16840.1.894400.3.579.2. 462 Unknown [id number] 2.16.840.1.150658.3.579.2. 462 Unknown [id number] 2.16840.1.968594.3.579.2. 462 Unknown [id number] 2.16840.1.114786.3.579.2. 462 Unknown [id number] 2.16.840.1.247945.3.579.2. 462 Unknown [id number] 2.16.840.1.212001.3.579.2. 462 Unknown [id number] 2.16.840.1.189667.3.579.2. 462 Unknown [id number] 2.16.840.1.492031.3.579.2. 462 Unknown [id number] 2.16840.1.207017.3.579.2. 462 Unknown [id number] 2.16.840.1.120893.3.579.2. 462 Unknown [id number] 2.16.840.1.951060.3.579.2. 462 Unknown [id number] 2.16.840.1.576677.3.579.2. 462 Unknown [id number] 2.16840.1.654659.3.579.2. 462 Unknown [id number] 2.16840.1.091095.3.579.2. 462 Unknown [id number] 2.840.1.458088.3.579.2. 462 Unknown [id number] 2.840.1.523523.3.579.2. 462 Unknown [id number] 2.840.1.808118.3.579.2. 462 Unknown [id number] 2.840.1.701214.3.579.2. 462 Unknown [id number] 2.840.1.088923.3.579.2. 462 Unknown [id number] 2.840.1.936388.3.579.2. 462 Unknown [id number] 2.840.1.424289.3.579.2. 462 Unknown [id number] 2.840.1.914895.3.579.2. 462 Unknown [id number] 2.840.1.441608.3.579.2. 462 Unknown [id number] 2.16840.1.433667.3.579.2. 462 Unknown [id number] 2.16840.1.894255.3.579.2. 462 Unknown [id number] 2.16.840.1.678991.3.579.2. 462 Unknown [id number] 2.16.840.1.355405.3.579.2. 462 Unknown [id number] 2.16.840.1.348958.3.579.2. 462 Unknown [id number] 2.16.840.1.019203.3.579.2. 462 Unknown [id number] 2.16.840.1.366496.3.579.2. 462 Unknown [id number] 2.16.840.1.948893.3.579.2. 462 Unknown [id number] 2.16.840.1.877426.3.579.2. 462 Unknown [id number] 2.16.840.1.709617.3.579.2. 462 Social History Date Type Detail Facility Start: 01-02-2022 End: 11-22-2024 Tobacco smoking status NHIS Never smoked tobacco [facility] Start: 06-05-2021 End: 09-21-2024 Alcohol intake Current non-drinker of alcohol (finding) [facility] Start: 01-23-2020 End: 01-18-2021 History SDOH Alcohol Frequency 1 [facility] Start: 01-23-2020 History SDOH Social Connections Phone 5 [facility] Start: 01-23-2020 History SDOH Social Connections Get Together 98 [facility] Start: 01-23-2020 History SDOH Social Connections Living 3 [facility] Start: 01-23-2020 End: 01-18-2021 History SDOH Stress 2 [facility] Start: 01-23-2020 Education 17 [facility] Start: 1935 Sex Assigned At Female C [facility] Work Phone: Start: 04-05-2020 End: 01-21-2022 Exposure to SARS-CoV-2 (event) Not sure [facility] Start: 06-09-2021 End: 08-08-2021 Exposure to SARS-CoV-2 (event) Unable to assess [facility] Work Phone: Start: 07-03-2021 End: 04-07-2023 Tobacco smoking status NHIS Unknown if ever smoked [facility] Start: 02-15-2021 None [facility] Start: 02-15-2021 [facility] Start: 01-02-2022 Tobacco use and exposure Smokeless tobacco non-user [facility] Start: 01-23-2020 End: 07-15-2023 History of Social function [facility] Start: 01-23-2020 End: 07-15-2023 Social connection and isolation panel [facility] Start: 02-16-2012 How often do you get together with friends or relatives? Patient refused [facility] Are you now , , , , never or living with a partner? [facility] How often to you hav e a drink containing alcohol? Never [facility] Do you feel stress - tense, restless, nervous, or anxious, or unable to sleep at night because your mind is troubled all the time - these days [OSQ] Only a little [facility] (I/We) worried ann er (my/our) food would run out before (I/we) got money to buy more. Never true [facility] In the past 12 month s, was there a time when you were not able to pay the mortgage or rent on time? No [facility] Start: 06-06-2018 Gender identity Identifies as female gender (finding) [facility] Start: 07-28-2019 Sexual orientation Heterosexual (anna lama) [facility] Work Phone: Start: 06-18-2024 End: 06-18-2024 Sex Female (finding) [facility] Goals Date Patient Goal Desired Activity /State Functional Status Date Assessment Result Facility 08-13-2021 Are you deaf, or do you have serious difficulty hearing No 08/13/2021 2:10 PM EDT Tasha Lovell APRN.CNP No [facility] Work Phone: 08-13-2021 Are you blind, or do you have serious difficulty seeing, even when wearing glasses No 08/13/2021 2:10 PM EDT Tasha Lovell APRN.CNP No [facility] 08-13-2021 Do you have serious difficulty walking or climbing stairs No 08/13/2021 2:10 PM EDT Tasha Lovell APRN.CNP No [facility] 08-13-2021 Do you have difficul ty dressing or bathing No 08/13/2021 2:10 PM EDT Tasha Lovell APRN.[employer] No [facility] 08-13-2021 Because of a physica l, mental, or emotional condition, do you have difficulty doing errands alone such as visiting a physician's office or shopping No 08/13/2021 2:10 PM EDT Tasha Lovell APRN.[employer] No [facility] Mental Status Date Assessment Result Facility 03-06-2022 Cognitive function Voice/Name [facility] Work Phone: 12-28-2021 Cognitive function Level Of Cons ciousness Awake;Alert;Follows Commands [facility] Work Phone: 10-18-2021 Cognitive function Level Of Cons ciousness Awake;Alert;Appropriate;Fol lows Commands [facility] Work Phone: 08-23-2021 Cognitive function Level Of Cons ciousness Awake;Alert;Appropriate [facility] Work Phone: 08-23-2021 Cognitive function Voice/Name [facility] Work Phone: 08-13-2021 Because of a physica l, mental, or emotional condition, do you have serious difficulty concentrating, remembering, or making decisions No 08/13/2021 2:10 PM EDT Tasha Lovell APRN.[employer] No [facility] Clinical Notes 05-05-2020 to 11-23-2024 Daysi Adame OCCA - 11/23/2024 11:40 AM Thalia Rucker MD - 11/23/2024 11:38 AM EDTTelephone Jasmeet - Parul Gu - 09/22/2024 10:58 AM Nicole Bhandari MA - 08/27/2024 9:35 AM EDT Note Date & Type Note Facility 11-23-2024 History of Present illness Narrative [facility] Viktoriya -Broke Arm General pain No recent RA flares Tramadol every 6 hrs Predinisone Has Colitis, Irritable bowel. If not improved in couple weeks willl be on steriod. [facility] Images from the original note were not [...] visit. Either the patient or their legal telephone claims representative has been informed of the risks and benefits of -- and alternatives to -- treatment through a remote evaluation and consents to proceed with the evaluation remotely. SUBJECTIVE: CC: routine follow up for RA (CCP 44, RF neg, non-erosive) Last seen: 08/27/2024 (with Thalia Monterroso) Current treatment: Prednisone 15 mg/day Prior Medications: MTX 8 tablets weekly [...] but remains on prednisone 20 mg daily. November 23, 2024 She has remained on prednisone 15 mg/day. Overall doing reasonably well. She has been doing physical therapy after her humerus fracture and she is more active than before. Pain is being well controlled with tramadol and prednisone. Answers submitted by the patient for this visit: Review of Systems Rheumatology (Submitted on 11/22/2024) Fever : No Recent unintentional weight change: [...] Joint pain or stiffness: Yes Muscle weakness: No Muscle aches: Yes Joint swelling: Yes Morning [...] lower quadrant long standing Arrhythmia Arthritis Asthma (HCC) Atrial fibrillation ([facility]) 2009 Atrophic vaginitis Benign neoplasm of colon [...] benign mass on liver PMR (polymyalgia rheumatica) ([facility]) 2012 Pure hypercholesterolemia Snoring Squamous cell cancer [...] Medication Sig polyethylene glycol 3350 (MIRALAX) 17 gram packet Take 17 g by mouth once daily as needed for constipation. Dissolve dose in 4 - 8 ounces of liquid and take as directed. COPPER ORAL Take 2 mg by mouth once daily. ascorbic acid, vitamin C, (VITAMIN C) 500 mg tablet Take 500 mg by mouth once daily. CALCIUM ORAL Take 600 mg by mouth two times a day. cholecalciferol (VITAMIN D-3) 400 unit tab Take two tablets by mouth twice daily. denosumab (PROLIA) 60 mg/mL syringe Inject 60 mg subcutaneously once every 6 months. diclofenac (VOLTAREN ARTHRITIS PAIN) 1 % topical gel Apply 4 g to affected area four times a day as needed. predniSONE (DELTASONE) 5 mg tablet Take 3 tablets by mouth once daily. dextran 70/hypromellose (ARTIFICIAL TEARS, PF, OPHTHALMIC) Use 1 Drop in eyes every 4 hours as needed. Methenamine Hippurate (HIPREX) 1 gram tablet Take [...] Take 1 tablet by mouth once daily. cjrptlc-fnbofqbmd-eveqksk D3 500 mg-5 mcg (200 unit) per [...] Take 1 tablet by mouth once daily. Current Facility-Administered Medications Medication Dose Route Frequency denosumab 60 mg injection (PROLIA) 60 mg SUBCUTANEOUS Q 6 MONTH PHYSICAL EXAMINATION: VIDEO EXAM: (if completed, performed via video enabled technology) GENERAL: alert and appropriate, in no distress, well-hydrated, well nourished, and happy, smiling, interactive RESPIRATORY: breathing non-labored CHEST: equal chest rise with normal respiratory effort EXTREMITIES: no synovitis Reviewed 11/23/2024 and above documentation is unchanged from previous visit Labs/Imaging: Latest Ref Rng & Units 11/25/2023 02/24/2024 06/11/2024 09/21/2024 CBC WBC 3.70 - 11.00 k/uL 5.20 9.49 7.11 6.88 Hemoglobin 11.5 - 15.5 g/dL 9.8 8.5 11.0 12.9 Hematocrit 36.0 - 46.0 % 29.7 28.3 34.9 38.0 Platelet Count 150 - 400 k/uL 146 243 141 119 Abs Neut (ANC) 1.45 - 7.50 k/uL 4.13 7.29 6.00 5.90 Abs Lymph 1.00 - 4.00 k/uL 0.54 0.92 0.50 0.39 Latest Ref Rng & Units 02/24/2024 03/19/2024 06/11/2024 09/21/2024 CMP Sodium 136 - 144 mmol/L 132 138 137 Potassium 3.7 - 5.1 mmol/L 4.4 4.4 4.3 Chloride 98 - 107 mmol/L 101 104 104 CO2 22 - 30 mmol/L 21 23 22 Glucose 74 - 99 mg/dL 162 240 196 BUN 7 - 21 mg/dL 16 18 13 Creatinine 0.58 - 0.96 mg/dL 0.67 0.58 0.59 0.57 Calcium 8.5 - 10.2 mg/dL 8.6 9.1 9.3 AST 13 - 35 U/L 21 28 46 ALT 7 - 38 U/L 13 26 50 Alkaline Phosphatase 34 - 123 U/L 69 64 68 Latest Ref Rng & Units 03/29/2014 Uric Acid Uric Acid 2.0 - 7.0 mg/dL 6.3 Latest Ref Rng & Units 11/25/2023 02/24/2024 06/11/2024 09/21/2024 ESR, WSR WSR 0 - 20 mm/hr 129 123 40 29 Latest Ref Rng & Units 11/25/2023 02/24/2024 06/11/2024 09/21/2024 CRP CRP <0.9 mg/dL 0.6 5.5 0.5 <0.3 Latest Ref Rng & Units 04/29/2013 [...] M06.9 (primary diagnosis) Pain is much improved with prednisone 15 mg/day. She remains comfortable and is not interested in tapering dose down any futher. Plaquenil stopped due to rash and itching. Infliximab IV was started in 2023 and she hadn't felt any benefit after several infusions so we stopped these. Continue tramadol by pall care every 6 hours Avoid hepatotoxic meds (methotrexate/Arava) 2. 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 Reclast #1 12/11/23 Humerus fracture in 07/2024 Prolia every 6 months started 08/2024 3. On prednisone therapy - ICD9: V58.65, ICD10: Z79.52 (Some elements copied from my prior note, which have been updated where appropriate, and all reflect current medical decision making from today, 11/23/2024) Follow-up 4 months Thalia Monterroso MD documented in this encounter [facility] 09-22-2024 Telephone encounter Note Eloisa called back and confirmed the below information and appointment in March, Parul Gerardo Pss [facility] 09-22-2024 Miscellaneous Notes Eloisa called back and confirmed the below information and appointment in March, Parul Carrillo Pss I called and left a message for Eloisa to call back to receive the below information and to confirm the scheduled follow-up visit for 03/2025. Parul Gerardo Pss Please inform pt. and daughter that iron studies look good. Follow up in 6 months with CBC/iron studies. Thank you. Cassidy Arreola APRN.[employer] documented in this encounter [facility] 09-22-2024 Telephone encounter Note I called and left a message for Eloisa to call back to receive the below information and to confirm the scheduled follow-up visit for 03/2025. Parul Gerardo Pss [facility] 09-22-2024 Telephone encounter Note Please inform pt. and daughter that iron studies look good. Follow up in 6 months with CBC/iron studies. Thank you. Cassidy Arreola APRN.[employer] [facility] Work Phone: 09-21-2024 History of Present illness [...] Wire Localization: Wire absent Lymph Node Sampling: [place] lymph node(s) Tumor size: Size of largest [...] tamoxifen therapy. S/p underwent hysteroscopy D&C at [facility] on 08/23/[address] Hebert. Path. Benign. Pt. resides at [facility]. Pt. here today with her daughter. Pt. last received two doses of iron sucrose 2023-after + stool cards. Multiple falls over past few months. Last one was last week-was seen in [facility] ED-CT head/neck done-neg. per daughter. On ATB for UTI. Pt. declined repeat CT chest from CT done in 2024. Appetite:Good. Last night not good. Energy level:I don't have much. Denies fevers. Resp:denies cough or sob, occ jennings-followed by PULM-using bi-pap, h/o allergies Cardiac:denies chest pain/palpitations h/o A.fib.-followed by Cards GI:denies abd pain (H/o IBS, colitis), n/v, moving bowels regularly-does not tolerate dairy, pt declines colonoscopy-was seen by GI/ at [facility]. :denies dysuria/hematuria-chronic UTI-followed by Urology Extrem:h/o RA, [...] as necessary for today's visit. Cassidy Arreola APRN.[employer] documented in this encounter [facility] 09-21-2024 History of Present illness Narrative Patient is here for IVAD port flush/blood draw per [facility] [place] protocol. IVAD is located in right upper [...] tolerated procedure well. documented in this encounter [facility] 09-14-2024 Radiology Diagnostic study note [facility] Imaging Services [address] [place] [id number] Elbow min 3 Views MR#: [id number] Acct: [id number] Name: CHRISTIAN LANDRUM Rep #: [id number] : 1935 F 89 From: Tegan Brito MD PCP: OLIVE uPckett Status: REG ER Study:Elbow min 3 Views Date of Exam: Exam# [id number] Ordering Dr: Clementina Torres DO PROCEDURE: ELBOW MIN 3 VIEWS 09/14/2024 REASON FOR EXAM: PAIN TECHNIQUE: ELBOW MIN 3 VIEWS COMPARISON: None FINDINGS: There is no fracture or dislocation identified. There is no visible joint effusion. Mineralization is normal. There is no visible atherosclerosis. RAD/Elbow min 3 Views IMPRESSION: No fracture or dislocation is identified. Reading Location: [facility] CC: OLIVE Horner; Sung Torres DO ~ [place] Sander: Signed [facility] 09-14-2024 Radiology Diagnostic study note [facility] Imaging Services [address] [place] [id number] Pelvis 1 or 2 Views MR#: [id number] Acct: [id number] Name: CHRISTIAN LANDRUM Rep #: [id number] : 1935 F 89 From: Tegan Brito MD PCP: OLIVE Puckett Status: REG ER Study:Pelvis 1 or 2 Views Date of Exam: 09/14/24 Exam# [id number] Ordering Dr: Clementina Torres DO PROCEDURE: PELVIS [...] fracture is identified. Reading Location: [facility] CC: OLIVE Horner; Sung Torres DO ~ [place] Sander: Signed [facility] 09-14-2024 Radiology Diagnostic study note [facility] Imaging Services [address] [place], [place] [id number] Spine Cervical without Contras MR#: [id number] Acct: [id number] Name: CHRISTIAN LANDRUM Rep #: [id number] : 1935 F 89 From: Tegan Brito MD PCP: OLIVE Puckett Status: REG ER Study:Spine Cervical without Contras Date of Exam: 09/14/24 Exam# [id number] Ordering Dr: Clementina Torres DO PROCEDURE: SPINE [...] CC: OLIVE Horner; Sung Torres DO ~ [place] Sander: Signed [facility] 09-14-2024 Radiology Diagnostic study note [facility] Imaging Services [address] [place], [place] [address] Brain/Head without Contrast MR#: [id number] Acct: [id number] Name: CHRISTIAN LANDRUM Rep #: [id number] : 1935 F 89 From: Tegan Brito MD PCP: OLIVE Puckett Status: REG ER Study:Brain/Head without Contrast Date of Exa m: 09/14/24 Exam# [id number] Ordering Dr: Clementina Torres DO EXAM: NONCONTRAST [...] acute intracranial pathology. Reading Location: [facility] CC: HEALTH POLICY ANALYSTWilfrido Horner; DO Keyur Etienne [place] Sander: Signed [facility] 08-30-2024 Telephone encounter Note August 30, 2024 8:14 AM 1st attempt to schedule - Left detailed voicemail message If patient calls back please help schedule 3 mo follow up with Dr. Monterroso (SARAH) or Aileen (Stevan) Postponed for 2nd attempt [facility] 08-30-2024 Miscellaneous Notes August 30, 2024 8:14 AM 1st attempt to schedule - Left detailed voicemail message If patient calls back please help schedule 3 mo follow up with Dr. Monterroso (SARAH) or Aileen (New) Postponed for 2nd attempt documented in this encounter [facility] 08-27-2024 History of Present illness Narrative Images from the original note were not included. RHEUMATOLOGY CLINIC FOLLOW-UP NOTE PROVIDER: Thalia Monterroso MD DISTANCE [facility] VISIT This Team Access Model visit is a virtual encounter. It required patient-provider interaction for the medical decision making as documented below. I have communicated my name and active licensure. The patient's identity and physical location were verified at the time of this visit. Either the patient or their legal telephone claims representative has been informed of the risks and benefits of -- and alternatives to -- treatment through a remote evaluation and consents to proceed with the evaluation remotely. SUBJECTIVE: CC: routine follow up for RA (CCP 44, RF neg, non-erosive) Last seen: 05/21/2024 (with Thalia Ray) Current treatment: Prednisone 20 [...] Take 1 tablet by mouth once daily. uqzgcmp-hjcipqsuy-czcoync D3 500 mg-5 mcg (200 unit) per [...] uncontrollable frequent soft stools, frequent UTI's at [facility] She was diagnosed with colitis which is a new diagnosis. The HEALTH POLICY ANALYST at the custodial increased her prednisone from 20 to 40 [...] of starting prolia documented in this encounter [facility] 08-13-2024 Evaluation note Diagnosis Onset Date Resolution Fall acute August 13, 2024 2:06pm Fx distal ulna-closed acute August 13, 2024 2:06pm [place] [employer] Work Phone: 1(113) 346-6195995210-54-3521 Evaluation note* Diagnosis Onset Date Resolution Status Admit Date Fall acute August 13, 2024 2:06pm Fx distal ulna-closed acute August 13, 2024 2:06pm Fall acute August 18, 2024 2:33pm Fx distal ulna-closed acute Fernando 2024 2:33pm [place] [employer] Work Phone: 1(716) 531-643705-30-2025 Evaluation note* Diagnosis Onset Date Resolution Status Admit Date Fall acute August 13, 2024 2:06pm Fx distal ulna-closed acute August 13, 2024 2:06pm Fall acute August 18, 2024 2:33pm Fx distal ulna-closed acute Fernando 2024 2:33pm Fall acute September 03 1:55pm Fx distal ulna-closed acute Fernando e 2024 1:55pm [place] [employer] Work Phone: 1(129) 982-480405-30-2025 Evaluation note* Diagnosis Onset Date Resolution Status Admit Date Fall acute August 13, 2024 2:06pm Fx distal ulna-closed acute August 13, 2024 2:06pm Fall acute August 18, 2024 2:33pm Fx distal ulna-closed acute Fernando 2024 2:33pm Fall acute September 03 1:55pm Fx distal ulna-closed acute Fernando 2024 1:55pm Change in bowel habits acute Ju ne 2024 2:24pm [place] [employer] Work Phone: 1(693) 365-326105-30-2025 Evaluation note* Diagnosis Onset Date Resolution Status Admit Date Fall acute August 13, 2024 2:06pm Fx distal ulna-closed acute August 13, 2024 2:06pm Fall acute August 18, 2024 2:33pm Fx distal ulna-closed acute Fernando e 2024 2:33pm Fall acute September 03 1:55pm Fx distal ulna-closed acute Fernando e 2024 1:55pm Change in bowel habits acute Ju ne 2024 2:24pm Fall acute September 24 1:58pm Fx distal ulna-closed acute Puma y 2024 1:58pm [place] [employer] Work Phone: 1(971) 236-212105-30-2025 Evaluation note* Diagnosis Onset Date Resolution Status [...] September 24 1:58pm Fx distal ulna-closed acute [place] y 2024 1:58pm Fx distal ulna-closed acute Aug ust 2024 1:53pm [place] [employer] Work Phone: 1(325) 479-447605-25-2025 Radiology Diagnostic study note [facility] Imaging Services [address] [place], [place] [address] CT Abd/Pelvis W/WO Contrast MR#: [id number] Acct: [id number] Name: CHRISTIAN LANDRUM Rep #: [id number] : 1935 F 89 From: Celi Man MD PCP: Dr. Payam Reyna MD Status: R EG CLI Study:CT Abd/Pelvis W/WO Contrast Date of Exa m: 08/06/24 Exam# [id number] Ordering Dr: Hiwot Abdullahi MD PROCEDURE: CT [...] the stomach suggestive of gastritis. Reading [facility] CC: Dr. Payam Ryena MD; Dr. Hiwot Abdullahi MD ~ [place] Sander: Signed [facility]04-02-2025 Telephone encounter Note* Telephone Encounter - Daly Kaiser LPN - 06/16/2024 3:[address] Monterroso please advise outside labs thank you. Daly Kaiser LPN June 16, 2024 3:40 PM Media Information File Link Scan on 06/16/2024 3:39 PM by Daly Kaiser LPN: OUTSIDE LAB RESULTS 06/16/24 [facility]04-02-2025 Miscellaneous Notes* Telephone Encounter - Daly Kaiser LPN - 06/16/2024 3:[address] Monterroso please advise outside labs thank you. Daly Kaiser LPN June 16, 2024 3:40 PM Media Information File Link Scan on 06/16/2024 3:39 PM by Daly Kaiser LPN: OUTSIDE LAB RESULTS 06/16/24 [facility] History of Present illness Narrative* Thalia [...] visit. Either the patient or their legal telephone claims representative has been informed of the risks [...] 2012 (elevated ESR and CRP at the [facility]). She started to develop symptoms of inflammatory [...] Take 1 tablet by mouth once daily. bbohxva-fnjifkkla-wqsgawe D3 500 mg-5 mcg (200 unit) per [...] so we stopped these. Continue tramadol by [facility] Avoid hepatotoxic meds (methotrexate/Arava) 2. 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 Reclast #1 12/11/23 We discussed Prolia today as an option. Risk o fracture is high due to ongoing use of steroids it is difficult for her to leave the facility to Prolia may be a good option for her to get at her custodial. We will discuss more next time 3. [...] last infusion was 01/28/24 [facility] History of Present illness Narrative* Reef Kamila Andujar RT(R) - 03/19/2024 11:00 AM EST Radiology [...] PATIENT PRESENTS WITH AN IMPLANTABLE OR ATTACHED DIRECTORY COMPILER: No ALLERGIES: Reviewed and unchanged CONTRAST ALLERGY: [...] PERIPHERAL IV DATA: power port accessed by [employer] RADIOLOGY DEPARTMENT: CT; Exam(s) Completed: Chest Abdomen Pelvis SIGNATURE: RT Rajinder(R) PATIENT NAME: Christian Landrum DATE: March 19, 2024 TIME: 2:31 PM [facility] History of Present illness Narrative* Page [...] PATIENT PRESENTS WITH AN IMPLANTABLE OR ATTACHED DIRECTORY COMPILER: No RADIOLOGY DEPARTMENT: General X-ray: Exam(s) Completed: Pelvis X-Ray: Pelvis with Hip Bilateral PERIPHERAL IV DATA: Not applicable SIGNED BY: RT Nithin(R) March 19, 2024 10:49 AM [facility] History of Present illness Narrative* Vania Horan RN - 03/12/2024 2:26 PM EST Patient's daughter states mom had some pain, aches, after her last Iron when it was pushed in Infusing this dose over 30 minutes with daughter in agreement. [facility] History of Present illness Narrative* Thalia [...] visit. Either the patient or their legal telephone claims representative has been informed of the risks [...] 2012 (elevated ESR and CRP at the [facility]). She started to develop symptoms of inflammatory [...] benign mass on liver PMR (polymyalgia rheumatica) ([facility]) 2012 Pure hypercholesterolemia Snoring Squamous cell cancer [...] Take 1 tablet by mouth once daily. weibljd-xlwjplhdu-hgwutdd D3 500 mg-5 mcg (200 unit) per [...] when pain is worse. Continue tramadol by [facility] care She is getting a CT scan [...] 03/05/2024 8:25 AM EST Zoom Daughter Eloisa (POA) will be with her at the facility [...] (started 08/28/23, most recent infusion 01/28/24) Seeing [facility], getting tramadol 50 mg every 6 hours [...] to look for mets documented [facility]12[facility]24 Telephone encounter Note * Telephone Encounter - Cassidy Arreola APRN.INGE - 03/03/2024 9:56 AM EST Noted. Cassidy Arreola APRN.[employer] [facility] Work Phone: [phone]) 593-262312-18-2024 Miscellaneous Notes* Telephone Encounter - Cassidy Arreola APRN.INGE - 03/03/2024 9:56 AM EST Noted. Cassidy Arreola APRN.[employer] * Telephone Encounter - Sadie Gann LPN - 03/02/2024 4:37 PM EST Spoke with pt. Daughter , she informed she is not sure if RA is the cause of pt. Pain, or if it is from the iron infusions. CRP and Sed rates are both elevated, they have appt. With marketing technology specialist onFriday . Will keep appts. 03/08 and [...] appointments that were requested. Patient is seeing marketing technology specialist on Friday. Transferred call to nurse. Meredith [...] get those visits rescheduled. [facility]12[facility]24 Telephone encounter Note * Telephone Encounter - Sadie Gann LPN - 03/02/2024 4:37 PM EST Spoke with pt. Daughter , she informed she is not sure if RA is the cause of pt. Pain, or if it is from the iron infusions. CRP and Sed rates are both elevated, they have appt. With marketing technology specialist onFriday . Will keep appts. 03/08 and 03/12 unless she becomes more painful , will have CT scans on 03/19 , and depending on those results will make a decision to proceed further or stop. Sadie Gann LPN [facility]12-17-2024 Telephone encounter Note* Telephone Encounter - Meredith Alonzo - 03/02/2024 4:29 PM EST Spoke with patient's daughter. They are not sure if the pain is from her RA of if her cancer is active again. Cancelled the 2 appointments that were requested. Patient is seeing marketing technology specialist on Friday. Transferred call to nurse. Meredith Alonzo [facility]12-17-2024 Telephone encounter Note* Telephone Encounter - Anneliese Garcia LPN - 03/02/2024 4:12 PM EST Tried to call daughter, no answer. Wanted to see if her pain was from her rheumatoid arthritis, which Cassidy noted in her OV on 02/24/24. Please assist in rescheduling. Anneliese Garcia LPN [facility]12-17-2024 Telephone encounter Note* Telephone Encounter - Alvina Mane - 03/02/2024 4:01 PM EST Daughter is calling to state patient is in a lot of pain, hard to even get out of her chair. They want to cancel 03/03 and 03/05 and would like to get those visits rescheduled. [facility]12-10-2024 History of Present illness Narrative* Cassidy Arreola APRN.[employer] - 02/24/2024 1:49 PM EST Chief Complaint [...] Wire Localization: Wire absent Lymph Node Sampling: [place] lymph node(s) Tumor size: Size of largest [...] tamoxifen therapy. S/p underwent hysteroscopy D&C at [facility] on 08/23/[address] Hebert. Path. Benign. Pt. resides at [facility]. Pt. here today with her [...] k/uL 0.67 (L) 0.54 (L) 0.92 (L) Lajas% % 12.3 8.8 12.1 Abs Lajas <0.87 k/uL 1.02 (H) 0.46 1.15 (H) [...] discussed with the Patient or Patient's Authorized Manager Mobility. Asapplicable, any other physician, advance practice provider, medical student, or other health professional student that will be observing or involved in the sensitive examination for educational or training purposes was discussed with the Patient or Authorized Manager Mobility. The Patient or Authorized Manager Mobility has agreed to proceed with the sensitive examination. (Sensitive examination includes inspection and/or palpation of the breasts, pelvis, prostate and anorectal regions) The patient indicates understanding of these issues and agrees with the plan. All documentation from previous visit of 08/19/23-Dr. Bonilla/myself was copied and pasted, documentation has been reviewed and edited as necessary for today's visit. Cassidy Arreola APRN.INGE documented in this encounterKn[facility]12-10-2024 History of Present illness Narrative* Vania Horan RN - 02/24/2024 8:07 AM EST . documented in this encounterKn[facility]11-08-2024 Telephone encounter Note * Telephone Encounter - Nicole Childs MA - 01/23/2024 4:33 PM EST Spoke with louisa Informed her of increased prednisone instructions and I will also fax this phone encounter. Louisa will speak with patients daughter for them to take note if they feel she has a flare up 1-2 weeks prior to infusion [facility]11-08-2024 Miscellaneous Notes* Telephone Encounter - Nicole [...] Dr. Monterroso's instructions to the facility at [phone] Last ov 11/14/23 Rheumatoid arthritis involving multiple [...] Lymph 1.00 - 4.00 k/uL 0.54 (L) Lajas% % 8.8 Abs Lajas <0.87 k/uL 0.46 Eosin% % 0.4 Abs [...] 01/23/2024 12:31 PM EST Louisa, nurse at [facility] facility, feels patient may be having a flare. Has lots of pain in herhands. Asking for call back please. Louisa at [facility] [phone] Thanks! Selma Mcdaniel, PSS documented in this encounterKn[facility]11-08-2024 Telephone encounter Note * Telephone Encounter [...] she'dlike to try to increase her dose. [facility]11-08-2024 Telephone encounter Note* Telephone Encounter - [...] Dr. Monterroso's instructions to the facility at [phone] Last ov 11/14/23 Rheumatoid arthritis involving multiple [...] Lymph 1.00 - 4.00 k/uL 0.54 (L) Lajas% % 8.8 Abs Lajas <0.87 k/uL 0.46 Eosin% % 0.4 Abs [...] mg/dL 0.6 Legend: (L) Low (H) [facility]11-08-2024 Telephone encounter Note* Telephone Encounter - Selma Mcdaniel - 01/23/2024 12:31 PM EST Louisa, nurse at [facility], feels patient may be having a flare. Has lots of pain in herhands. Asking for call back please. Louisa at [facility] [phone] Thanks! Selma Mcdaniel, DHEERAJ [facility]09-26-2024 History of Present illness Narrative* Andria Joyner RN - 12/11/2023 11:27 AM EDT Denies any dental issues or concerns. No extractions or root canals in the last 6 months. Daughter present. Andria Joyner RN documented in this encounterKn[facility]09-19-2024 History of Present illness Narrative* Cesia Rangel RN - 12/04/2023 10:22 AM EDT Secure chat, as well as Page sent to Dr. Monterroso regarding Reclast. Unable to reach at this time. Daughter aware and ok with waiting until next tx. Cesia Rangel RN documented in this encounterKn[facility]09-11-2024 Telephone encounter Note * Telephone Encounter - Sadie Gann LPN - 11/26/2023 11:51 AM EDT Faxed, spoke with chetan at [facility] , they did receive. Sadie Gann LPN [facility]09-11-2024 Miscellaneous Notes* Telephone Encounter - Sadie Gann LPN - 11/26/2023 11:51 AM EDT Faxed, spoke with chetan at [facility] , they did receive. Sadie Gann LPN * Telephone Encounter - Page Robles - 11/26/2023 10:39 AM EDT Received call from [facility]. They stated a fax came thru this morning, however, they only received Cover Page. Please resubmit. [phone] * Telephone Encounter - Sadie Gann LPN - 11/26/2023 9:43 AM EDT spoke with pts. KASANDRA, given information concerning her iron studies. Also informed Dr. Bonilla notation was sent to [facility] attn: herminia horner so additional labs can [...] brings labs and note from Herminia Horner HEALTH POLICY ANALYST from custodial. Daughter states -pt has had a drop in her Hgb to 9.9 from 11/03/23. (labs and note placed on your desk) -Pt has occult blood x 3 but pt does not want a colonoscopy. -Saw Dr Loc gates on 11/14/23, adding Reclast. -Pt having Iron studies drawn today. daughter asking if pt needs iron infusions prior to starting Reclast. Will need to let [facility] (fax [phone]) and daughter Eloisa. Anneliese Garcia LPN [facility] Telephone encounter Note * Telephone Encounter - Page Robles - 11/26/2023 10:39 AM EDT Received call from [facility]. They stated a fax came thru this morning, however, they only received Cover Page. Please resubmit. [phone] [facility] Work Phone: 1(575) 732-846009-11-2024 Telephone encounter Note* Telephone Encounter - Sadie Gann LPN - 11/26/2023 9:43 AM EDT spoke with pts. KASANDRA, given information concerning her iron studies. Also informed Dr. Bonilla notation was sent to [facility] attn: herminia horner so additional labs can be done. Daughter voiced understanding. Sadie Gann LPN [facility]09-10-2024 Telephone encounter Note* Telephone Encounter - [...] TSH and copper level. Sal Bonilla DO [facility]09-10-2024 Telephone encounter Note* Telephone Encounter - Anneliese Garcia LPN - 11/25/2023 1:52 PM EDT Pt here today for labs. Daughter brings labs and note from Herminia Horner HEALTH POLICY ANALYST from custodial. Daughter states -pt has had a drop in her Hgb to 9.9 from 11/03/23. (labs and note placed on your desk) -Pt has occult blood x 3 but pt does not want a colonoscopy. -Saw Dr Loc gates on 11/14/23, adding Reclast. -Pt having Iron studies drawn today. daughter asking if pt needs iron infusions prior to starting Reclast. Will need to let [facility] (fax [phone]) and daughter Eloisa. Anneliese Garcia LPN [facility]09-10-2024 Telephone encounter Note* Telephone Encounter - Sal Bonilla DO - 11/25/2023 12:00 PM EDT Thank you. Filed. Sal Bonilla DO [facility]09-10-2024 Miscellaneous Notes* Telephone Encounter - Sal Bonilla DO - 11/25/2023 12:00 PM EDT Thank you. Filed. Sal Bonilla DO * Telephone Encounter - Anneliese Garcia LPN - 11/25/2023 11:56 AM EDT Pended lab orders. Anneliese Garcia LPN documented in this encounterKnox [facility] Hospital09-10-2024 Telephone encounter Note * Telephone Encounter - Anneliese Garcia LPN - 11/25/2023 11:56 AM EDT Pended lab orders. Anneliese Garcia LPN [facility]08-30-2024 History of Present illness Narrative* Thalia [...] visit. Either the patient or their legal telephone claims representative has been informed of the risks [...] 2012 ([facility] She started to develop symptoms of inflammatory [...] colitis No date: Coronary artery disease 2009, 2013: Diverticulitis No date: Diverticulosis of colon (without [...] Take 1 tablet by mouth once daily. ipftxhq-zvyktrrsk-lqmadlf D3 500 mg-5 mcg (200 unit) per [...] Latest Ref Rng & Units 03/27/2021 07/06/2021 07/10/202107/0307/04/2023 ESR, WSR WSR 0 - 20 mm/hr [...] with more than 50% of the total vctv-cs-uzaq time of the visit in counseling / coordination of care. documented in this encounterKnox Community Hospital07-25-2024 History of Present illness Narrative* Andria Joyner RN - 10/09/2023 11:11 AM EDT Pt requesting to have the infusion over 2 hours. States the two previous infusions were fine and noside effects during or when she got home. Andria Joyner RN documented in this encounterKnox [facility] Hospital06-05-2024 Telephone encounter Note * Telephone Encounter - Page Robles - 08/20/2023 11:43 AM EDT Scheduled 1st treatment with [facility]. 3 cycles entered. Start email sent [facility] Work Phone: [phone]) 631-661006-05-2024 Miscellaneous Notes* Telephone Encounter - Page Robles - 08/20/2023 11:43 AM EDT Scheduled 1st treatment with [facility]. 3 cycles entered. Start email sent * Telephone Encounter - Page Robles - 08/19/2023 3:16 PM EDT Please call Loli at [facility] when ready to schedule. [phone] * Telephone Encounter - Page Robles - 08/19/2023 2:13 PM EDT DaughterEloisa called stating that [facility] will be calling to schedule Renflexis in [place]. Dr. Loc bass. Please review and advise. documented in this encounterKnox [facility] Hospital06-04-2024 Telephone encounter Note * Telephone Encounter - Page Robles - 08/19/2023 3:16 PM EDT Please call Loli at [facility] when ready to schedule. [phone] [facility]06-04-2024 Telephone encounter Note* Telephone Encounter - Page Robles - 08/19/2023 2:13 PM EDT Daughter, Eloisa called stating that [facility] will be calling to schedule Renflexis in [place]. Dr. Monterroso ordering. Please review and advise. [facility] History of Present illness Narrative* Cassidy Arreola APRN.[employer] - 08/19/2023 11:29 AM EDT Chief Complaint [...] Wire Localization: Wire absent Lymph Node Sampling: [place] lymph node(s) Tumor size: Size of largest [...] tamoxifen therapy. S/p underwent hysteroscopy D&C at [facility] on 08/23/[address] Hebert. Path. Benign. Pt. resides at [facility]. Pt. here today with her [...] - 4.00 k/uL 0.84 (L) 0.67 (L) Lajas% % 13.6 12.3 Abs Lajas <0.87 k/uL 1.41 (H) 1.02 (H) Eosin% [...] as necessary for today's visit. Cassidy Arreola APRN.[employer] documented in this encounterKnox Community Hospital06-04-2024 History of Present illness Narrative* Vania Horan RN - 08/19/2023 7:21 AM EDT Patient is here for IVAD port flush/blood draw per [facility] protocol. IVAD is located in right upper [...] Patient tolerated procedure well. documented in this encounterKnox Community Hospital05-10-2024 Telephone encounter Note * Telephone Encounter - Inessa Arnold RN - 07/25/2023 4:30 PM EDT Called Susana Bettencourt and discussed taper schedule from Dr. Monterroso of [place] by 1mg every month. Currently on 10mg Prednisone. Sonia Bettencourt expressed understanding of taper schedule. [facility]-10-[facility]24 Miscellaneous Notes* Telephone Encounter - Inessa Arnold RN - 07/25/2023 4:30 PM EDT Called Susana Bettencourt and discussed taper schedule from Dr. Monterroso of dropping by 1mg every month. Currently on 10mg Prednisone. Sonia Bettencourt expressed understanding of taper schedule. * Telephone Encounter - Mary Beth Trevino - 07/25/2023 12:39 PM EDT Milagros from [facility] calling they need clarification on the taper of Prednisone. Please call [phone] and ask for [facility] documented in this encounterKnox Community Hospital05-10-2024 Telephone encounter Note * Telephone Encounter - Mary Beth Trevino - 07/25/2023 12:39 PM EDT Milagros from [facility] calling they need clarification on the taper of Prednisone. Please call [phone] and ask for [facility]04-30-2024 History of Present illness Narrative* Vikash Sylvester APRN.[employer] - 07/15/2023 2:30 PM EDT Female Pelvic [...] resides in a nursing facility currently and thefacility HEALTH POLICY ANALYST has been prescribing estrogen cream. GFR normal. Urinary Incontinence: no Voiding Dysfunction: no Urinary Frequency: yes, takes lasix Urinary Urgency: yes, sometimes Prolapse Symptoms: no Defecatory Dysfunction: no Fecal Incontinence: no Abnormal Bleeding: no Pain: no Abnormal Vaginal Discharge: no I have confirmed and edited as necessary, the PFSH obtained by others. Vikash Sylvester APRN.[employer] Catalyst Plant Supervisor offered: Patient declines. OBJECTIVE: BP 122/84 Ht [...] VV next year since they live in [place]. Medical Decision Making: Problems: Moderate: 2+ stable chronic illnesses Data: Unique test result(s) reviewed: 1 Risk: Moderate: Drug management Medical Decision Making Level: 4 - Moderate Vikash Sylvester APRN.[employer] documented in this encounterKnox Community Hospital04-19-2024 History of Present illness Narrative* Margy Sarabia - 07/04/2023 3:42 PM EDT [facility] received prescription(s) for Humira from Dr. Monterroso's office. Benefits investigation was conducted, indicating that a prior authorization is required by patient's insurance plan with [employer] Encounter will be updated once prior authorization has been submitted by [facility]. Margy Sarabia CPhT, Inflammatory/Allergy [facility] [phone] * Margy Sarabia - 07/04/2023 3:42 PM EDT Images from the original note were not included. * Margy Sarabia - 07/04/2023 3:42 PM EDT [facility] received prescription(s) for Humira [...] this time. Patient will be referred to [facility] Assistance Program. Note will be update once pt is contacted. Margy Sarabia CPhT, Inflammatory/Allergy [facility] [phone] documented in this encounterKnox Community Hospital04-19-2024 History of Present illness Narrative* Thalia [...] 2012 (elevated ESR and CRP at the [facility]). She started to develop symptoms of inflammatory [...] benign mass on liver PMR (polymyalgia rheumatica) ([facility]) 2012 Pure hypercholesterolemia Snoring Squamous cell cancer [...] Take 1 tablet by mouth once daily. gxneraf-rsfdtwkyx-yqksrzt D3 500 mg-5 mcg (200 unit) per [...] months Thalia Monterroso MD documented in this encounterKnox Community Hospital04-16-2024 Miscellaneous Notes* Telephone Encounter - Bayron Spears RN - 07/01/2023 4:00 PM EDT Singed order for compression stockings place in postal mail addressed to: [facility] medical records [address] [place] [address] documented in this encounterKnox Community Hospital04-15-2024 History of Present illness Narrative* Stella Preciado PA-C - 06/30/2023 4:00 PM EDTAssociated Order(s): Large Joint Arthro/Inj: R knee joint Post-Procedure Diagnose(s): Primary osteoarthritis of both knees Large Joint Arthro/Inj: R knee joint Informed Consent Consent Obtained: Verbal [place] Protocol A moment to CARE was completed. [...] right knee cortisone injection. documented in this encounterKnox Community Hospital04-15-2024 Instructions* Patient Instructions* Stella Preciado PA-C - 06/30/2023 3:42 PM EDT Right knee injection today. No restrictions, follow up in 91 days if needed. documented in this encounterKnox Community Hospital04-03-2024 History of Present illness Narrative* Stella Preciado PA-C - 06/18/2023 9:16 AM EDTAssociated Order(s): Large Joint Arthro/Inj: L knee joint Post-Procedure Diagnose(s): Primary osteoarthritis of both knees; Chronic pain of left knee Stella Preciado PA-C Department of Orthopaedics Orthopaedics [address] [place] [id number] Dept: [phone] Dept June 18, 2023 CHIEF COMPLAINT: Established [...] knee joint Informed Consent Consent Obtained: Verbal [place] Protocol A moment to CARE was completed. [...] retained foreign bodies accounted for. Ms. Christian Lnadrum was advised as to contrast therapies and/or [...] Take 1 tablet by mouth once daily. dxomtsv-ayxzsxsys-ppaxehn D3 500 mg-5 mcg (200 unit) per [...] [Lisinopril] This note was partially generated using [email or web address] voice recognition system, and there may be [...] into the left knee. documented in this encounterCleveland [id number] Instructions* Patient Instructions* Stella Preciado PA-C - 06/18/2023 8:54 AM EDT Left knee injection today, follow up in 1-2 weeks for right knee injection. documented in this encounterKnox Community Hospital04-03-2024 History of Present illness Narrative* Page [...] PATIENT PRESENTS WITH AN IMPLANTABLE OR ATTACHED DIRECTORY COMPILER: No RADIOLOGY DEPARTMENT: General X-ray: Exam(s) Completed: Lower Extremity X- Ray(s): Knee, AP / Lat / Tunne / Merchant Bilateral and Wt. Bearing PERIPHERAL IV DATA: Not applicable SIGNED BY: RT Nithin(R) June 18, 2023 11:10 AM documented in this encounterKnox Community Hospital04-01-2024 History of Present illness Narrative* Cecilio Ibarra DO - 06/16/2023 1:57 PM EDT Images from the original note were not included. [facility] Luis Miguel Kolb Department of Cardiovascular Medicine SECTION OF CLINICAL CARDIOLOGY OUTPATIENT VISIT DATE June 16, 2023 OUTPATIENT VISIT TYPE ESTABLISHED Patient Name: Christian Landrum : 1935 PRIMARY CARE PHYSICIAN: Galina Iraheta MD [facility] 09/05/22 CHIEF COMPLAINT: Patient presents with: Follow Up: [facility] 12/13/22 CATHY HTN , PAF EKG 09/05/22 [...] risk and aware of this off anticoagulation. [id number] score 4 or approximately 7% annual stroke [...] SINUS RHYTHM Confirmed by OBDULIA BERMEO DO ([id number]) on 10/08/2022 3:19:16 PM LABS: Sodium (mmol/L) [...] [Cephalexin], Naprosyn [Naproxen], Desmond Inhibitors, Adhesives [Other], [id number] [Diclofenac-Misoprostol], Blephamide [Sulfacetamide- Prednisolone], Ditropan [Oxybutynin], Flagyl[Metronidazole [...] Age of Onset other ( age 60 DE) Mother hypertension and TB other (pancreatic cancer) [...] Take 1 tablet by mouth once daily. dqrdedv-jlnclvvbc-qvbesem D3 500 mg-5 mcg (200 unit) per [...] medications for this visit. documented in this encounterKnox Community Hospital03-22-2024 History of Present illness Narrative* Hu [...] PATIENT PRESENTS WITH AN IMPLANTABLE OR ATTACHED DIRECTORY COMPILER: No RADIOLOGY DEPARTMENT: Bone Density PERIPHERAL IV DATA: Not applicable SIGNED BY: RT Dwayne(R) June 06, 2023 2:13 PM documented in this encounterKnox Community Hospital02-14-2024 Miscellaneous Notes* Telephone Encounter - Nicole [...] Maximus said we can fax response to [phone] * Telephone Encounter - Nery Olsen - 04/28/2023 1:04 PM EST Maximus from [facility] called to advise that pt's pain has gotten worse while on the prednisone taper. Advised that dosage is now at 12.5 and pt is in a lot of pain. Callback: [phone] DHEERAJ Ponce documented in this encounterKnox Community Hospital02-09-2024 Miscellaneous Notes* Telephone Encounter - Nicole [...] 04/24/2023 12:39 PM EST Maximus BRUNO from [facility] called. Patient was complaining of all over [...] response and or call documented in this encounterKnox Community Hospital11-28-2023 History of Present illness Narrative* Cassidy Arreola APRN.[employer] - 02/11/2023 10:05 AM EST Chief Complaint [...] Wire Localization: Wire absent Lymph Node Sampling: [place] lymph node(s) Tumor size: Size of largest [...] tamoxifen therapy. S/p underwent hysteroscopy D&C at [facility] on 08/23/[address] Hebert. Path. Benign. Pt. resides at [facility]. Pt. here today with her [...] 1.00 - 4.00 k/uL 1.57 1.06 1.54 Lajas% % 11.2 11.2 9.7 Abs Lajas <0.87 k/uL 0.68 0.59 0.68 Eosin% % [...] visit. Cassidy Arreola APRN.CNP documented in this encounterKnox Community Hospital10-05-2023 Miscellaneous Notes* Telephone Encounter - Sheryl Mercado RN - 12/19/2022 2:42 PM EDT Faxed patient's last office visit note to facility, [facility], [facility]. documented in this encounterKnox Community Hospital10-03-2023 History of Present illness Narrative* Vania Horan RN - 12/17/2022 7:27 AM EDT Patient is here for IVAD port flush per [facility] protocol. IVAD is located in right upper chest. Site cleansed with Chloraprep IVAD accessed with a #20 gauge 3/4 non-coring Gripper needle Blood Return: Good Flushed with: 20 ml Normal Saline and 5 ml Heparin Lock Flush Non-coring needle removed. Paper tape applied to puncture site. Port site negative for redness, edema or tenderness. Patient tolerated procedure well. documented in this encounterKnox Community Hospital09-29-2023 Instructions* Patient Instructions* Juliet Gaffney APRN.CNP - 12/13/2022 2:50 PM EDT PLAN AND RECOMMENDATIONS: No change in medications Follow up Dr Ibarra in 6 months. CONTACT INFORMATION: Juliet Gaffney APRN.CNP Cardiology Nurse Practitioner Section of Regional Cardiology [facility] Dept of Cardiovascular Medicine [facility] [address] [place] [address] Office Office documented in this encounterKnox Community Hospital09-29-2023 History of Present illness Narrative* Juliet Gaffney APRN.CNP - 12/13/2022 2:45 PM EDT Images from the original note were not included. [facility] Miguel Kolb Department of Cardiovascular Medicine SECTION OF CLINICAL CARDIOLOGY OUTPATIENT VISIT DATE December 13, 2022 OUTPATIENT VISIT TYPE ESTABLISHED PRIMARY CARE PHYSICIAN: Galina Iraheta [address] [place] [address] REFERRING PHYSICIAN: Jerrica Beltran [address] [facility] [address] CHIEF COMPLAINT: Follow Up ([place] denies cardiac concerns/Daughter, Eloisa, concerned about Lasix [...] if standing for long time, like at [facility] but resolves quickly Has sleep apnea with new mask and now sleeps better. She overall feels better than she has in a long time. Does water therapy at her assisted living facility. [facility] [place] She denies shortness of breath, chest pain, [...] Age of Onset other ( age 60 [place]) Mother hypertension and TB other (pancreatic cancer) [...] Take 1 tablet by mouth once daily. pbounik-eerbdlkju-dwkjohw D3 500 mg-5 mcg (200 unit) per [...] SINUS RHYTHM Confirmed by OBDULIA BERMEO DO ([id number]) on 10/08/2022 3:19:16 PM There were no [...] Gaffney APRN.INGE Cardiology Nurse Practitioner Section of Regional Cardiology [facility] Dept of Cardiovascular Medicine [facility] [address] [place] [address] Office Office documented in this encounterKnox Community Hospital09-12-2023 Miscellaneous Notes* Telephone Encounter - Sheryl [...] contact is Eloisa Moser. documented in this encounterKnox Community Hospital09-11-2023 Instructions* Patient Instructions* Stella Preciado PA-C [...] feels comfortable doing so. documented in this encounterKnox Community Hospital09-11-2023 History of Present illness Narrative* Page [...] 25, 2022 2:30 PM documented in this encounterKnox Community Hospital09-11-2023 History of Present illness Narrative* Stella Preciado PA-C - 11/25/2022 2:05 PM EDTAssociated Order(s): Large Joint Arthro/Inj: bilateral knee joints Post-Procedure Diagnose(s): Primary osteoarthritis of both knees Large Joint Arthro/Inj: bilateral knee joints Informed Consent Consent Obtained: Verbal [place] Protocol A moment to CARE was completed. [...] Amount of Time: (Ongoing) documented in this encounterKnox Community Hospital08-31-2023 Miscellaneous Notes* Telephone Encounter - Juliet Coombs - 11/14/2022 5:44 PM EDT Left VM on patient's home and mobile lines cancelling the patient's 12/11/22 cardiology appointment.Instructed the patient to call the office to reschedule. My Chart message sent. documented in this encounterKnox Community Hospital07-11-2023 History of Present illness Narrative* Andria Joyner RN - 09/24/2022 2:35 PM EDT Patient is here for IVAD port flush per [facility] protocol. IVAD is located in right upper [...] well. Andria Joyner RN documented in this encounterKnox Community Hospital07-07-2023 Miscellaneous Notes* Telephone Encounter - Ana Cristina Melo RN - 09/20/2022 8:44 AM EDT Reviewed labs with Dr. Ibarra. Recommended pt to hold Eliquis. Would like pt to see Dr. Shields to discuss Watchmen Device. Reviewed recommendations to KASANDRA fulton Nurse Milagros at [facility]. Eloisa stated she will review Watchman recommendations to pt. Will contact us if she decided to pursue. * Telephone Encounter - Ana Cristina Melo RN - 09/20/2022 8:17 AM EDT Jie from [facility] ([phone]) in reg to Ms Tristin Landrum. CBC drawn today per Dr. Jose morales (2 week post starting Eliquis). Scan on 09/20/2022 8:25 AM by Yolanda Ashford: Miscellaneous Lab Pt has now refused Eliquis x4 days d/t black stools and +Hemoccult. Next CBC due 09/14/22. Inquiring if we have any additional orders/recommendations. [facility] 09/05/22 w/ Dr. Ibarra: Paroxysmal atrial fibrillation - Stable and remains in sinus rhythm today - No atrial fibrillation noted despite multiple hospital admissions with fever - Historically was on Warfarin but this was stopped in February 2022 for GI bleed. Patient is high thromboembolic risk and aware of this off anticoagulation. [id number] score 4 or approximately 7% annual stroke risk and has-bled score is 2 or 4% bleeding risk - Currently on metoprolol - patient and daughter wish to trial DOAC now Iron deficiency anemia Doing well with iron infusions with stable Hgb documented in this encounterKnox Community Hospital06-22-2023 History of Present illness Narrative* Cecilio Ibarra, DO - 09/05/2022 9:12 AM EDT Images from the original note were not included. [facility] Kolb Department of Cardiovascular Medicine SECTION OF CLINICAL CARDIOLOGY OUTPATIENT VISIT DATE April 09, 2022 OUTPATIENT VISIT TYPE ESTABLISHED Patient Name: Christian Landrum : 1935 PRIMARY CARE PHYSICIAN: Galina Iraheta MD [facility] 09/05/21 CHIEF COMPLAINT: No chief complaint [...] risk and aware of this off anticoagulation. [id number] score 4 or approximately 7% annual stroke [...] [Cephalexin], Naprosyn [Naproxen], Desmond Inhibitors, Adhesives [Other], [id number] [Diclofenac-Misoprostol], Blephamide [Sulfacetamide- Prednisolone], Ditropan [Oxybutynin], Flagyl[Metronidazole [...] Age of Onset other ( age 60 [place]) Mother hypertension and TB other (pancreatic cancer) [...] Take 1 tablet by mouth once daily. cgbygbh-rdbsgohhs-eouwulo D3 500 mg-5 mcg (200 unit) per [...] medications for this visit. documented in this encounterKnox Community Hospital06-13-2023 History of Present illness Narrative* Cassidy Arreola APRN.[employer] - 08/27/2022 11:54 AM EDT Chief Complaint [...] Wire Localization: Wire absent Lymph Node Sampling: [place] lymph node(s) Tumor size: Size of largest [...] tamoxifen therapy. S/p underwent hysteroscopy D&C at [facility] on 08/23/[address] Hebert. Path. Benign. Pt. now resides at [facility]. Pt. here today with her [...] Lymph 1.00 - 4.00 k/uL 1.35 1.57 Lajas% % 11.0 11.2 Abs Lajas <0.87 k/uL 0.54 0.68 Eosin% % 1.6 [...] visit. Cassidy Arreola APRN.CNP documented in this encounterKnox Community Hospital03-28-2023 Miscellaneous Notes* Telephone Encounter - Sadie [...] you. Cassidy Arreola APRN.CNP documented in this encounterKnox Community Hospital03-22-2023 History of Present illness Narrative* Page Ruiz [...] 05, 2022 12:37 PM documented in this encounterKnox Community Hospital03-22-2023 History of Present illness Narrative* Cassidy [...] Wire Localization: Wire absent Lymph Node Sampling: [place] lymph node(s) Tumor size: Size of largest [...] tamoxifen therapy. S/p underwent hysteroscopy D&C at [facility] on 08/23/[address] Hebert. Path. Benign. Pt. now resides at [facility]. Pt. here today with her [...] Skin:denies rashes/lesions Heme:denies bleeding since visit with SPOOLER OPERATOR The ROS is otherwise negative. Past [...] visit. Cassidy Arreola APRN.INGE documented in this encounterKnox Community Hospital03-16-2023 Miscellaneous Notes* Telephone Encounter - Meredith Alonzo - 05/30/2022 3:07 PM EDT Spoke with Jie at [facility] and she stated that appointments need made with the patient's family as they are the ones that transport the patient. Spoke with patient's daughter, advising below, and scheduled May follow up as directed. Meredith Alonzo * Telephone Encounter - Lisa Morales LPN - 05/30/2022 1:42 PM EDT Left detailed message for Herminia with information below. I attempted to contact [facility], , they were unable to hear on their line. Unable to speak to anyone. I faxed this information to [phone]. Will attempt to contact again later. PSS- please contact [facility] to schedule as directed below. Lisa [...] - 05/30/2022 12:34 PM EDT Herminia from [facility] called stating patient is having right side pain, rib area. She is asking if imaging orders could be sent or if patient needs to be seen . She states concern due to hx breast cancer. Please call Herminia at [phone] documented in this encounterKnox [facility] Hospital01-25-2023 Miscellaneous Notes* Telephone Encounter - Starla [...] today. Starla Son RN documented in this encounterKnox Community Hospital01-24-2023 Instructions* Patient Instructions* Taty Perez APRN.INGE [...] day - please fax BP readings to [phone] I would like to know if your [...] sodium diet is recommended documented in this encounterKnox Community Hospital01-24-2023 History of Present illness Narrative* Taty Perez APRN.CNP - 04/09/2022 2:44 PM EST Images from the original note were not included. [facility] [place] Luis Miguel Kolb Department of Cardiovascular Medicine [...] which included preparing to see the patient, guhx-kt-oenu patient care, completing clinical documentation, performing a medically appropriate examination, counseling and educating the patient/family/caregiver, ordering medications, tests, or p rocedures, and communicating results to the patient/family/caregiver. Thank you very much for allowing me to assist in the care of Christian Landrum. Please do not hesitate to contact me if you have questions or concerns. Taty Perez APRN.[facility] Cardiology Nurse Practitioner Section of Regional Cardiology [facility] Dept of Cardiovascular Medicine [facility] [place] [address] Office Office April 09, 2022 2:44 PM This note was partially generated using Mizhe.com voice recognition system and may contain errors [...] [Cephalexin], Naprosyn [Naproxen], Desmond Inhibitors, Adhesives [Other], [id number] [Diclofenac-Misoprostol], Blephamide [Sulfacetamide- Prednisolone], Ditropan [Oxybutynin], Flagyl[Metronidazole [...] Age of Onset other ( age 60 DE) Mother hypertension and TB other (pancreatic cancer) [...] and ROS obtained by others. Taty Perez APRN.[employer] CURRENT MEDICATIONS: Current Outpatient Medications Medication Sig [...] Take 1 tablet by mouth once daily. iatdckf-kqjzntllv-nboatfv D3 500 mg-5 mcg (200 unit) per tablet Take 1 tablet by mouth once daily. omeprazole (PRILOSEC) 40 mg capsule Take 1 capsule by mouth once daily. gabapentin (NEURONTIN) 600 mg tablet Take 0.5 tablets by mouth once daily. (Patient taking differently: Take 300 mg by mouth daily at bedtime.) No current facility-administered medications for this visit. documented in this encounterKnox Community Hospital01-23-2023 History of Present illness Narrative* Nata Morrison RN - 04/08/2022 11:07 AM EST documented in this encounterKnox Community Hospital01-09-2023 Miscellaneous Notes* Telephone Encounter - DHEERAJ [...] transfusion on 03/05. A CBC done at [facility] on 03/07 Showed that the hemoglobin [...] infusion. Sal Bonilla DO documented in this encounterKnox Community Hospital01-06-2023 Miscellaneous Notes* Telephone Encounter - Dayami Pinto - 03/22/2022 1:47 PM EST PT scheduled * Telephone Encounter - Sal Bonilla DO - 03/21/2022 5:36 PM EST Thank you. Order filed. aSl Bonilla DO * Telephone Encounter - Lisa Morales LPN - 03/21/2022 5:[address] Bonilla- please file new CBC order. PSS- please schedule patient for a lab/port appointment for 03/22/2022 @ 1:30 CBC(?TX)/STREV* No need to notify patient's daughter, she is aware of date and time. Lisa Morales LPN documented in this encounterKnox Community Hospital12-27-2022 Miscellaneous Notes* Telephone Encounter - Dayami [...] in for a lab port draw and picking supervisor hemoccult cards at the desk (labeled and at nurses station for picking supervisor when she comes in).PSS please reach our [...] 03/12/2022 9:57 AM EST Left message on SpeedDate phone to call me back to review [...] was restarted on this medication at the custodial. Her iron levels were low when measured [...] to schedule. Meredith Alonzo documented in this encounterKnox Community Hospital12-21-2022 History of Present illness Narrative* Cassidy Arreola APRN.[employer] - 03/06/2022 2:26 PM EST Chief Complaint [...] Wire Localization: Wire absent Lymph Node Sampling: [place] lymph node(s) Tumor size: Size of largest [...] tamoxifen therapy. S/p underwent hysteroscopy D&C at [facility] on 08/23/[address] Hebert. Path. Benign. Pt. now resides at [facility]. Labs have been monitored there. [...] Skin:denies rashes/lesions Heme:denies bleeding since visit with SPOOLER OPERATOR The ROS is otherwise negative. Past [...] visit. Cassidy Arreola APRN.INGE documented in this encounterKnox Community Hospital11-22-2022 History of Present illness Narrative* Vania Horan RN - 02/05/2022 7:32 AM EST Patient is here for IVAD port flush per [facility] [place] protocol. IVAD is located in right upper chest. Site cleansed with Chloraprep IVAD accessed with a #20 gauge 3/4 non-coring Gripper needle Blood Return: Good Flushed with: 20 ml Normal Saline and 5 ml Heparin Lock Flush Non-coring needle removed. Paper tape applied to puncture site. Port site negative for redness, edema or tenderness. Patient tolerated procedure well. documented in this encounterKnox Community Hospital11-07-2022 History of Present illness Narrative* Stella Preciado PA-C - 01/21/2022 2:58 PM ESTAssociated Order(s): Large Joint Arthro/Inj: R knee joint Post-Procedure Diagnose(s): Primary osteoarthritis of both knees; Chronic pain of right knee Stella Preciado PA-C Department of Orthopaedics Orthopaedics [address] [place] [id number] Dept: [phone] Dept January 21, 2022 CHIEF COMPLAINT: Established [...] knee joint Informed Consent Consent Obtained: Verbal [place] Protocol A moment to CARE was completed. [...] knee osteoarthritis with interval progression as described. [place] Sander: GRANT Transcribe Date/Time: Jul 09 2021 7:03P [...] Take 1 tablet by mouth once daily. iffoech-zeuzrhbqq-eqzsfxj D3 500 mg-5 mcg (200 unit) per [...] every Fri; 1 mg all other days (Patient not [...] anxiety) This note was partially generated using Mizhe.com voice recognition system, and there may be [...] Eloisa with patient today. documented in this encounterKnox Community Hospital10-19-2022 NoteHNO ID: [id number] Author: Basilia Hernández MD Service: ? Author [...] stool Pain: no Abnormal Vaginal Discharge: no SPOOLER OPERATOR HISTORY: Last Pap: Date:04/18/20 NIL; Last [...] 4 - Moderate Basilia Hernández, [facility]10-19-2022 Instructions* Patient Instructions* Basilia Hernández MD - 01/02/2022 2:08 PM EDT Follow up with Vikash Sylvester NP in 6 months or sooner as needed documented in this encounterKnox Community Hospital10-19-2022 History of Present illness Narrative* Basilia [...] stool Pain: no Abnormal Vaginal Discharge: no SPOOLER OPERATOR HISTORY: Last Pap: Date:04/18/20 NIL; Last [...] well-hydrated, well nourished. Urine dip neg Impression: Laporte J Smucker is a 86 year old female with [...] Moderate Basilia Hernández MD documented in this encounterKnox Community Hospital10-11-2022 Miscellaneous Notes* Telephone Encounter - Jayde Link RN - 12/25/2021 10:47 AM EDT Galina Castro HEALTH POLICY ANALYST called regarding patient's Coumadin, has been having anemia and bloody stool. Asking if Coumadin can be held/stopped temporarily. Coumadin has been ordered by PCP, not cardiology office. Spoke with HEALTH POLICY ANALYST, explained Dr. Ibarra was not managing patient's Coumadin. HEALTH POLICY ANALYST stated patient is no longer seeing Dr. Iraheta and has new PCP; requesting orders from Dr. Ibarra. Advised HEALTH POLICY ANALYST to follow up with new PCP/physician managing Coumadin. Per Dr. Ibarra's notes, anemia has been chronic issue. documented in this encounterKnox Community Hospital08-30-2022 History of Present illness Narrative* Jerrica Bhat RN - 11/13/2021 9:57 AM EDT Patient is here for IVAD port flush per [facility] [place] protocol. IVAD is located in right upper chest. Site cleansed with Chloraprep IVAD accessed with a #20 gauge 3/4 non-coring Gripper needle Blood Return: Good Flushed with: 20 ml Normal Saline Non-coring needle removed. Paper tape applied to puncture site. Port site negative for redness, edema or tenderness. Patient tolerated procedure well. documented in this encounterKnox Community Hospital08-22-2022 Miscellaneous Notes* Telephone Encounter - Galina Iraheta MD - 11/05/2021 5:17 PM EDT noted * Telephone Encounter - Maria A Camacho (Technology Adoption Manager) - 11/05/2021 9:35 AM EDT PATIENT [...] if deemed appropriate. Maria A Camacho; Javon (Technology Adoption Manager) Pharmacy Anticoagulation Clinic documented in this encounterKnox Community Hospital08-19-2022 Miscellaneous Notes* Telephone Encounter - An Ta APRN.CNP - 11/02/2021 2:49 PM EDT Noted. An Ta APRN.CNP * Telephone Encounter - Nata Lemon LPN - 11/02/2021 1:12 PM EDT Patient daughter Gia returned call and said her mother is at [facility] and Dr Alejo Salcido is taking [...] EDT Received call from Maximus MERCADO with [facility]. Patient was admitted to facility today. Maximus asking for clarification on when patient should resume Coumadin and dosage as well as when next INR needs to be drawn. Maximus requests orders be faxed to [phone] or called to [phone]. Maximus requested updated medication list be faxed. [...] and left VM to call PAC at [phone]. Is she is Assisted Living facility? documented in this encounterKnox Community Hospital08-04-2022 Miscellaneous Notes* Telephone Encounter - Yoly Clayton Ma - 10/18/2021 3:47 PM EDT Patient currently being seen in [facility] ER. * Telephone Encounter - nA Ta APRN.[employer] - 10/18/2021 3:39 PM EDT Please get update from daughter on how patient is feeling, and if they heard back from [facility]. Thank you An Ta APRN.INGE * Telephone Encounter - Nata Lemon LPN - 10/18/2021 9:00 AM EDT Patient daughter Eloisa calling mother woke up with fever 100.5 this morning. She was having body aches yesterday. She is scheduled for blood transfusion today at [facility] her hemoglobin is 6.5 and daughter has called transfusion center at [facility] and left message. Eloisa did home COVID test and mother was positive. documented in this encounterKnox Community Hospital08-03-2022 Miscellaneous Notes* Telephone Encounter - Jerrica Rothman RPh - 10/17/2021 3:58 PM EDT [facility] J Mariellejuaquin was called for anticoagulation follow-up. PT INR [...] 2.1 now? Blood tranfusion orders faxed to [facility] Please review and advise. Nury Guerin LPN * Telephone Encounter - Jerrica Rothman RPh - 10/17/2021 9:12 AM EDT INR yesterday (10/16) was 2.1 via Biotel. * Telephone Encounter - Galina Iraheta MD - 10/16/2021 6:32 PM EDT We will have to transfuse 2 units of RBcs to patient Please get the forms for [facility] and inform patient of the same * Telephone Encounter - Tesha Arias [facility] - 10/16/2021 6:01 PM EDT Called and stp- per Dr. Iraheta pt to hold off on warfarin. Pt's Hgb was 6.5 today, will reach out to Dr. Iraheta for clarification on resuming anticoag Tesha Arias PharmD documented in this encounterKnox Community Hospital08-03-2022 Miscellaneous Notes* Telephone Encounter - Ramila Castro LPN - 10/17/2021 2:00 PM EDT Soraya with [facility] Marge called and states pt is coming in for a cross and type. Identified pt withname and date of . Requested a copy of last H & H, faxed CBC to [phone]. Ramila Castro LPN documented in this encounterKnox Community Hospital08-01-2022 Miscellaneous Notes* Telephone Encounter - Nury [...] this medication. Advice. 4. Moving pt to [facility] 10-22-21. Please advise daughter on cell phone or send a COFCO message Gia Ford ([facility] Ortho)on teams. documented in this encounterKnox Community Hospital08-01-2022 Miscellaneous Notes* Telephone Encounter - Vito Jay RPh - 10/15/2021 11:47 AM EDT [facility] Anticoagulation Episode Summary Anticoagulation Care Providers Provider Role Specialty Phone number Galina Iraheta MD [facility] Internal Medicine [phone] Christian Landrum is a 86 year old [...] Pharmacy Anticoagulation Clinic Pharmacy Anticoagulation Clinic Pager: [phone]. documented in this encounterCleveland [id number] History of Present illness Narrative* Jeancarlos Hooker [...] removed with a cold snare. D&C at [place] a month or two ago for uterine [...] Age of Onset other ( age 60 DE) Mother hypertension and TB other (pancreatic cancer) [...] MD October 11, 2021 documented in this encounterCleveland [id number] NoteHNO ID: [id number] Author: Basilia Hernández MD Service: ? Author [...] UTIs, used to see Dr. Burris at [facility]. Prior colovesical fistula, s/p sigmoid colectomy. [...] >=60 mL/min/1.73m? 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 documented in this encounterKnox Community Hospital07-13-2022 History of Present illness Narrative* Basilia [...] UTIs, used to see Dr. Burris at [facility]. Prior colovesical fistula, s/p sigmoid colectomy. 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 nnaxhap-khzzznmtr-emttals D3 500 mg-5 mcg (200 unit) per [...] PFSH and ROS obtained by others. Basilia Heránndez MD Catalyst Plant Supervisor offered: Patient accepts, visit chaperoned by Jane [...] Post Wall - Normal support Cervix / [place] - Normal support POP-Q: Prolapse Noted: No [...] mail. Basilia Hernández MD documented in this encounterKnox Community Hospital07-06-2022 Miscellaneous Notes* Telephone Encounter - Jerrica Rothman RPh - 09/19/2021 11:03 AM EDT [employer] message sent for therapeutic INR. documented in this encounterKnox Community Hospital07-05-2022 History of Present illness Narrative* Cassidy Arreola APRN.[employer] - 09/18/2021 9:29 AM EDT Chief Complaint [...] Wire Localization: Wire absent Lymph Node Sampling: [place] lymph node(s) Tumor size: Size of largest [...] Dr. Das. She was then admitted to [facility] for weakness end of June. Admitted to [place] for UTI end of July. During that time her . S/p underwent hysteroscopy D&C at [facility] on 08/23/[address] Hebert. Path. Benign. 09/11/21-vaginal bleeding was seen by Dr. Hebert. Pt. participating in PT. Appetite:I've been eating. My sister has been here from [place]. Energy level:I sleep a lot. Denies fevers. [...] Skin:denies rashes/lesions Heme:denies bleeding since visit with SPOOLER OPERATOR The ROS is otherwise negative. Past [...] visit. Cassidy Arreola APRN.INGE documented in this encounterKnox Community Hospital07-05-2022 Nurse Note* Sadie Lin LPN - 09/18/2021 9:17 AM EDT Est. Pt. 6 month f/u Sadie Lin LPN documented in this encounterKnox Community Hospital06-29-2022 Miscellaneous Notes* Telephone Encounter - Jerrica Rothman [facility] - 09/12/2021 11:32 AM EDT Stp - reviewed Dr. King's note from yesterday's OV. Pt reports no further issues - bleeding concerns. She resumed yesterday taking 1mg - 6/28. Advised her to continue her current dose and retest next week. Jerrica Rothman PharmFrancisco * Telephone Encounter - Maria A Camacho ([employer]) - 09/12/2021 9:03 AM EDT PATIENT CALL Patient called call center regarding procedure. Patient called and left message after hours that stated she had her procedure on 09/11 and MD had advised her to resume her warfarin. Patient wanted to call and let [facility] know. Patient can be reached at [phone]. Maria A Camacho ([employer]) * Telephone Encounter - Nury Andres RPh - 09/11/2021 8:49 AM EDT Spoke to patient. She has not taken warfarin for past 5 days due to vaginal bleeding. She has a n appointment today with pyrometer operator for cauterization. Advised she call PAC back after appt to let us know when she can resume warfarin. PT INR (no units) Date Value 06/06/2021 3.1 (biotel) 05/23/2021 2.5 (biotel) 03/15/2021 1.9 INR Home CoaguChek (no units) Date Value 09/10/2021 1.6 09/04/2021 2.0 08/22/2021 2.7 Nury Andres, Pharmacist * Telephone Encounter - Kevin Torres ([employer]) - 09/11/2021 8:42 AM EDT PATIENT CALL Judith called call center regarding results and left message after hours 09/10/2021 at 7:30pm. Patient also called and left message (transferred from PSS line) stating that she is having some bleedingissues and hasn't taken warfarin for at least five days. Please see yesterdays STEEL SAMPLER encounter as well. Received call from Vincecarli Remote INR for patient. Patient tested on 09/10/2021 with out of range INR result of 1.6. PT INR (no units) Date Value 06/06/2021 3.1 (biotel) 05/23/2021 2.5 (biotel) 03/15/2021 1.9 INR Home CoaguChek (no units) Date Value 09/10/2021 1.6 09/04/2021 2.0 08/22/2021 2.7 Patient can be reached at [phone]. 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 [...] Making Jayde Hebert MD documented in this encounterKnox Community Hospital06-27-2022 Miscellaneous Notes* Telephone Encounter - Juliet [...] with daughter. She has an appointment with Uro/Siene Maker, Dr. Hernández on 09/26. Is this ok [...] urology. Jayde Hebert MD documented in this encounterKnox Community Hospital06-24-2022 Miscellaneous Notes* Telephone Encounter - An Ta APRN.CNP - 09/07/2021 8:02 AM EDT Noted. Please let us know if they need anything else from us. Thank you An Ta APRN.CNP * Telephone Encounter - Maria A Khanna RN - 09/06/2021 12:55 PM EDT Sheryl with [facility] called and reports Pt is thinking of coming and living in their Assisted Living facilities. Sent Face sheet and last OV notes to fax # [phone]. documented in this encounterKnox Community Hospital06-22-2022 History of Present illness Narrative* Cecilio Ibarra, DO - 09/05/2021 12:58 PM EDT Images from the original note were not included. [facility] Obdulia and Carmella [facility] Department of Cardiovascular Medicine Established HPI: Christian Landrum is a 86 year old female with a history of paroxysmal AF (coumadin), rheumaticmitral valve regurgitation, HTN, HLD, STUART, breast cancer, PMR, and OA. She was last seen by me on 12/22/20 where a pharmacologic nuclear stress test was ordered and seen for telephone visit by PATHOLOGY LABORATORY AIDE 04/19/21. MPI showed no evidence of ischemia or infarction. She was hospitalized in June at [facility] and in July 2021 in [place] both for UTI and fever. She continues [...] DO, FACC, FCCP, FACOI documented in this encounterKnox Community Hospital06-22-2022 Miscellaneous Notes* Telephone Encounter - Jerrica Rothman RPh - 09/05/2021 9:09 AM EDT NotesFirsthart message sent for INR therapeutic range. documented in this encounterKnox Community Hospital06-17-2022 Miscellaneous Notes* Telephone Encounter - Kamila Bentley LPN - 08/31/2021 7:49 AM EDT Please see pt's mychart message and pended order below. Please advise. Kamila Bentley LPN documented in this encounterKnox Community Hospital06-16-2022 History of Present illness Narrative* Jayde [...] Menarche: 12; Age at 1st : 26; Siene Maker History LMP: Postmenopausal Age at Menarche: Age at First : Age at Menopause: Siene Maker History Comments: Sexual Activity: Not Currently; Male [...] Age of Onset other ( age 60 [place]) Mother hypertension and TB other (pancreatic cancer) [...] Take 1 tablet by mouth once daily. vutvcec-uockywqod-davrddf D3 500 mg-5 mcg (200 unit) per [...] Making Jayde Hebert MD documented in this encounterKnox Community Hospital06-14-2022 History of Present illness Narrative* Jayde [...] 50+ Menarche: 12; Age at 1st : Siene Maker History LMP: Postmenopausal Age at Menarche: Age at First : Age at Menopause: Siene Maker History Comments: Sexual Activity: Not Currently; Male [...] Age of Onset other ( age 60 DE) Mother hypertension and TB other (pancreatic cancer) [...] Take 1 tablet by mouth once daily. wdwliql-teukhlqqp-vifswis D3 500 mg-5 mcg (200 unit) per [...] external genitalia normal, normal Bartholin's glands, urethra, [place]'s glands, no vulvar lesions, good vaginal support, [...] Making Jayde Hebert MD documented in this encounterKnox Community Hospital06-12-2022 History of Present illness Narrative* Jayde Hebert MD - 08/26/2021 3:21 PM EDT Patient underwent hysteroscopy D&C at [facility] on 08/23/2021 without complications. She was discharged home with routine instructions and follow-up. Pathology is pending. No discrete polyp visualized. 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 Jerrica Rothman [facility] Clinical Pharmacist, Pharmacy Anticoagulation Clinic Pharmacy Anticoagulation Clinic Pager: [phone] . documented in this encounterKnox Community Hospital06-03-2022 Miscellaneous Notes* Telephone Encounter - Corinna Deniz Arenas - 08/17/2021 10:26 AM EDT [facility] Anticoagulation Episode Summary Anticoagulation Care Providers Provider Role Specialty Phone number Galina Iraheta MD [facility] Internal Medicine [phone] Christian Landrum is a 86 year old [...] * Unknown Zestril [Lisinopril] Indication for Warfarin: alf (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 anticoagulants Paroxysmal atrial fibrillation (hcc) Anticoagulation Episode Summary Current INR goal: 2.0-3.0 Assessment: INR result of 2.6 is therapeutic Plan: Called and spoke to patient/caregiver Advised patient to continue current weekly dose Next home INR check scheduled on 08/22/2021 Patient is having vaginal bleeding, is scheduled for d&c with polypectomy on 08/23; was advised by SPOOLER OPERATOR that warfarin isn't usually held for the procedure Advised to test INR the day prior to ensure it isn't elevated Patient verbalizes understanding of the plan. Patient denies need for refills. Corinna Arenas RPh Clinical Pharmacist, Pharmacy Anticoagulation Clinic Pharmacy Anticoagulation Clinic Pager: [phone] . documented in [facility] encounterKn[facility] Miscellaneous Notes* Telephone Encounter - Madyson [...] to call office. Patient is scheduled at [facility] for surgery on 08/29/2021 @ 7:30 am. [facility] will call with arrival time.Phone PAT is 08/23/2021 8:00 am. Patient needs 2 week post-op documented in this encounterKn[facility] History and physical note * Jayde [...] tablet by mouth once daily. 90 tablet3 nevokkd-ferqzsfde-dwgmiav D3 500 mg-5 mcg (200 unit) per [...] Age of Onset other ( age 60 DE) Mother hypertension and TB other (pancreatic cancer) [...] allergies Jayde Hebert M.D. 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 Use vaginal estrogne 2-3 times a week Patient is likely going to need a cholecystectomy but her surgeon wanted her to have the hysteroscopy D&C and the pathology returned on that before she proceeded with the more invasive cholecystectomy. Medical Decision Making Jayde Hebert MD documented in this encounterKnox [facility]06-01-2022 Miscellaneous Notes* Telephone Encounter - An Ta APRN.CNP - 08/15/2021 9:01 AM EDT Patient admitted to hospital. Nitrofurantion discontinued. An Ta APRN.CNP documented in this encounterKnox [facility]05-31-2022 Miscellaneous Notes* Telephone Encounter - Nury Andres RPh - 08/14/2021 4:37 PM EDT [facility] Anticoagulation Episode Summary Anticoagulation Care Providers Provider Role Specialty Phone number Galina Iraheta MD [facility] Internal Medicine [phone] Christian Landrum is a 86 year old [...] Pharmacy Anticoagulation Clinic Pharmacy Anticoagulation Clinic Pager: [phone] . documented in this encounterKnox [facility]05-29-2022 Miscellaneous Notes* Telephone Encounter - Daysi [...] Outcome: Daughter will drive her mother to [facility]. Reason for Disposition [1] Unable to urinate (or only a few drops) > 4 hours AND [2] bladder feels very full (e.g., palpable bladder or strong urge to urinate) Protocols used: URINE - BLOOD IN-ADULT- documented in this encounterKnox [facility] Hospital05-27-2022 Miscellaneous Notes* Telephone Encounter - Maria [...] with Pam in lab who spoke with [facility] lab,[facility] was having issues with those orders site [...] you An Ta APRN.CNP documented in this encounterKnox [facility] Hospital05-25-2022 History of Present illness Narrative* An Ta APRN.CNP - 08/08/2021 2:12 PM EDT CC: Patient presents with: Recheck: Hosp follow up, HPI Christian Landrum is a 86 year old female who presents today for hospital follow- up with daughter who drove her to appointment. Facility: [facility] Date of visit: 07/06/21 - 07/12/21 [...] polyp is addressed and she sees her surveyor geodetic for her cirrhosis. Post discharge she spent [...] Take 1 tablet by mouth once daily. ttqnpiz-fldqnjtlm-evimopt D3 500 mg-5 mcg (200 unit) per [...] Age of Onset other ( age 60 DE) Mother hypertension and TB other (pancreatic cancer) [...] with more than 50% of the total avry-te-rrns time of the visit in counseling / coordination of care. Prescription instructions reviewed with patient as applicable. Potential red flag symptoms discussed with the patient. Reviewed appropriate action plan to take if red flag symptoms occur. Patient agreeable to treatment plan. An Ta APRN.CNP documented in this encounterKnox [facility] Hospital05-17-2022 Miscellaneous Notes* Telephone Encounter - Nury Andres RPh - 07/31/2021 4:00 PM EDT [facility] Anticoagulation Episode Summary Anticoagulation Care Providers Provider Role Specialty Phone number Galina Iraheta MD [facility] Internal Medicine [phone] Christian Landrum is a 86 year old [...] Pharmacy Anticoagulation Clinic Pharmacy Anticoagulation Clinic Pager: [phone] . documented in this encounterKnox [facility] Hospital05-13-2022 Miscellaneous Notes* Telephone Encounter - Maria [...] RN - 07/27/2021 10:59 AM EDT Ricky Brown [facility], reports patient is being discharged from [facility] tomorrow with orders for PT & OT. Asking if pcp agrees to follow? Asking for reply today, as they plan to see patient on Friday. [phone] documented in this encounterKnox [facility] Hospital05-10-2022 Miscellaneous Notes* Telephone Encounter - Jocy Scherer - 07/24/2021 2:04 PM EDT LVM with patient and sent msg. Appointment with Shalom on 07/27 needs rescheduled first available. Appt has been cancelled. documented in this encounterKnox [facility] Hospital05-06-2022 Miscellaneous Notes* Telephone Encounter - Juliet [...] polypectomy more, but she ended up at [facility] last month for a week d/t multiple medical problems one of thema UTI. Calling today because she is starting with urinary frequency again and worsening vaginal dryness. She has not used estrace cream since 02/2021 sometime. Offered appointment today, but patient is still at [facility] [place] for rehab. Advised to speak to nurse [...] advise. Inge Salter RN documented in this encounterKnox Community Hospital05-04-2022 Miscellaneous Notes* Telephone Encounter - Vania [...] PAC team to f/u. documented in this encounterKnox Community Hospital04-22-2022 History of Past illness Narrative* Problem Noted Date Resolved Date Dysuria 07/06/2021 07/08/2021 Obesity, Class I, BMI 30-34.9 01/12/2021 GI bleed 01/12/2021 01/14/2021 Acute blood loss anemia 01/12/2021 01/15/20 21 LLQ pain 09/05/2017 04/09/2021 Overview: Added automatically from request for surgery [id number] Malignant neoplasm of lower- inner quadrant of right breast of female, estrogen receptor positive 06/03/2017 07/06/2021 Personal history of breast cancer 12/18/2016 04/09/2021 Overview: Added automatically from request for surgery [id number] Permanent atrial fibrillation 12/26/2015 Diverticulitis of large [...] of this encounter (statuses as of 07/11/2021) [facility] of Past illness Narrative* Problem Noted Date Resolved Date Dysuria 07/06/2021 07/08/2021 Obesity, Class I, BMI 30-34.9 01/12/2021 GI bleed 01/12/2021 01/14/2021 Acute blood loss anemia 01/12/2021 01/15/20 21 LLQ pain 09/05/2017 04/09/2021 Overview: Added automatically from request for surgery [id number] Malignant neoplasm of lower- inner quadrant of right breast of female, estrogen receptor positive 06/03/2017 07/06/2021 Personal history of breast cancer 12/18/2016 04/09/2021 Overview: Added automatically from request for surgery [id number] Permanent atrial fibrillation 12/26/2015 Diverticulitis of large [...] Merino on recommendation of Dr. Angeline anth documented as of this encounter (statuses as of 07/16/2021) [facility] of Past illness Narrative* Problem Noted Date Resolved Date Dysuria 07/06/2021 07/08/2021 Obesity, Class I, BMI 30-34.9 01/12/2021 GI bleed 01/12/2021 01/14/2021 Acute blood loss anemia 01/12/2021 01/15/20 21 LLQ pain 09/05/2017 04/09/2021 Overview: Added automatically from request for surgery [id number] Malignant neoplasm of lower- inner quadrant of right breast of female, estrogen receptor positive 06/03/2017 07/06/2021 Personal history of breast cancer 12/18/2016 04/09/2021 Overview: Added automatically from request for surgery [id number] Permanent atrial fibrillation 12/26/2015 Diverticulitis of large [...] of this encounter (statuses as of 07/18/2021) [facility] of [facility] illness Narrative* Problem Noted Date Resolved Date Dysuria 07/06/2021 07/08/2021 Obesity, Class I, BMI 30-34.9 01/12/2021 GI bleed 01/12/2021 01/14/2021 Acute blood loss anemia 01/12/2021 01/15/20 21 LLQ pain 09/05/2017 04/09/2021 Overview: Added automatically from request for surgery [id number] Malignant neoplasm of lower- inner quadrant of right breast of female, estrogen receptor positive 06/03/2017 07/06/2021 Personal history of breast cancer 12/18/2016 04/09/2021 Overview: Added automatically from request for surgery [id number] Permanent atrial fibrillation 12/26/2015 Diverticulitis of large [...] of this encounter (statuses as of 07/20/2021) [facility] illness Narrative* Problem Noted Date Resolved Date Dysuria 07/06/2021 07/08/2021 Obesity, Class I, BMI 30-34.9 01/12/2021 GI bleed 01/12/2021 01/14/2021 Acute blood loss anemia 01/12/2021 01/15/20 21 LLQ pain 09/05/2017 04/09/2021 Overview: Added automatically from request for surgery [id number] Malignant neoplasm of lower- inner quadrant of right breast of female, estrogen receptor positive 06/03/2017 07/06/2021 Personal history of breast cancer 12/18/2016 04/09/2021 Overview: Added automatically from request for surgery [id number] Permanent atrial fibrillation 12/26/2015 Diverticulitis of large [...] of this encounter (statuses as of 07/24/2021) [facility] Narrative* Problem Noted Date Resolved Date Dysuria 07/06/2021 07/08/2021 Obesity, Class I, BMI 30-34.9 01/12/2021 GI bleed 01/12/2021 01/14/2021 Acute blood loss anemia 01/12/2021 01/15/20 21 LLQ pain 09/05/2017 04/09/2021 Overview: Added automatically from request for surgery [id number] Malignant neoplasm of lower- inner quadrant of right breast of female, estrogen receptor positive 06/03/2017 07/06/2021 Personal history of breast cancer 12/18/2016 04/09/2021 Overview: Added automatically from request for surgery [id number] Permanent atrial fibrillation 12/26/2015 Diverticulitis of large [...] of this encounter (statuses as of 07/24/2021) [facility] Narrative* Problem Noted Date Resolved Date Dysuria 07/06/2021 07/08/2021 Obesity, Class I, BMI 30-34.9 01/12/2021 GI bleed 01/12/2021 01/14/2021 Acute blood loss anemia 01/12/2021 01/15/20 21 LLQ pain 09/05/2017 04/09/2021 Overview: Added automatically from request for surgery [id number] Malignant neoplasm of lower- inner quadrant of right breast of female, estrogen receptor positive 06/03/2017 07/06/2021 Personal history of breast cancer 12/18/2016 04/09/2021 Overview: Added automatically from request for surgery [id number] Permanent atrial fibrillation 12/26/2015 Diverticulitis of large [...] of this encounter (statuses as of 07/27/2021) [facility] Narrative* Problem Noted Date Resolved Date Dysuria 07/06/2021 07/08/2021 Obesity, Class I, BMI 30-34.9 01/12/2021 GI bleed 01/12/2021 01/14/2021 Acute blood loss anemia 01/12/2021 01/15/20 21 LLQ pain 09/05/2017 04/09/2021 Overview: Added automatically from request for surgery [id number] Malignant neoplasm of lower- inner quadrant of right breast of female, estrogen receptor positive 06/03/2017 07/06/2021 Personal history of breast cancer 12/18/2016 04/09/2021 Overview: Added automatically from request for surgery [id number] Permanent atrial fibrillation 12/26/2015 Diverticulitis of large [...] of this encounter (statuses as of 07/30/2021) [facility] Narrative* Problem Noted Date Resolved Date Dysuria 07/06/2021 07/08/2021 Obesity, Class I, BMI 30-34.9 01/12/2021 GI bleed 01/12/2021 01/14/2021 Acute blood loss anemia 01/12/2021 01/15/20 21 LLQ pain 09/05/2017 04/09/2021 Overview: Added automatically from request for surgery [id number] Malignant neoplasm of lower- inner quadrant of right breast of female, estrogen receptor positive 06/03/2017 07/06/2021 Personal history of breast cancer 12/18/2016 04/09/2021 Overview: Added automatically from request for surgery [id number] Permanent atrial fibrillation 12/26/2015 Diverticulitis of large [...] of this encounter (statuses as of 07/31/2021) [facility] Narrative* Problem Noted Date Resolved Date Dysuria 07/06/2021 07/08/2021 Obesity, Class I, BMI 30-34.9 01/12/2021 GI bleed 01/12/2021 01/14/2021 Acute blood loss anemia 01/12/2021 01/15/20 21 LLQ pain 09/05/2017 04/09/2021 Overview: Added automatically from request for surgery [id number] Malignant neoplasm of lower- inner quadrant of right breast of female, estrogen receptor positive 06/03/2017 07/06/2021 Personal history of breast cancer 12/18/2016 04/09/2021 Overview: Added automatically from request for surgery [id number] Permanent atrial fibrillation 12/26/2015 Diverticulitis of large [...] of this encounter (statuses as of 08/08/2021) [facility] Narrative* Problem Noted Date Resolved Date Dysuria 07/06/2021 07/08/2021 Obesity, Class I, BMI 30-34.9 01/12/2021 GI bleed 01/12/2021 01/14/2021 Acute blood loss anemia 01/12/2021 01/15/20 21 LLQ pain 09/05/2017 04/09/2021 Overview: Added automatically from request for surgery [id number] Malignant neoplasm of lower- inner quadrant of right breast of female, estrogen receptor positive 06/03/2017 07/06/2021 Personal history of breast cancer 12/18/2016 04/09/2021 Overview: Added automatically from request for surgery [id number] Permanent atrial fibrillation 12/26/2015 Diverticulitis of large [...] of this encounter (statuses as of 08/10/2021) [facility] Narrative* Problem Noted Date Resolved Date Dysuria 07/06/2021 07/08/2021 Obesity, Class I, BMI 30-34.9 01/12/2021 GI bleed 01/12/2021 01/14/2021 Acute blood loss anemia 01/12/2021 01/15/20 21 LLQ pain 09/05/2017 04/09/2021 Overview: Added automatically from request for surgery [id number] Malignant neoplasm of lower- inner quadrant of right breast of female, estrogen receptor positive 06/03/2017 07/06/2021 Personal history of breast cancer 12/18/2016 04/09/2021 Overview: Added automatically from request for surgery [id number] Permanent atrial fibrillation 12/26/2015 Diverticulitis of large [...] of this encounter (statuses as of 08/10/2021) [facility] Narrative* Problem Noted Date Resolved Date Dysuria 07/06/2021 07/08/2021 Obesity, Class I, BMI 30-34.9 01/12/2021 GI bleed 01/12/2021 01/14/2021 Acute blood loss anemia 01/12/2021 01/15/20 21 LLQ pain 09/05/2017 04/09/2021 Overview: Added automatically from request for surgery [id number] Malignant neoplasm of lower- inner quadrant of right breast of female, estrogen receptor positive 06/03/2017 07/06/2021 Personal history of breast cancer 12/18/2016 04/09/2021 Overview: Added automatically from request for surgery [id number] Permanent atrial fibrillation 12/26/2015 Diverticulitis of large [...] of this encounter (statuses as of 08/12/2021) [facility] Narrative* Problem Noted Date Resolved Date Dysuria 07/06/2021 07/08/2021 Obesity, Class I, BMI 30-34.9 01/12/2021 GI bleed 01/12/2021 01/14/2021 Acute blood loss anemia 01/12/2021 01/15/20 21 LLQ pain 09/05/2017 04/09/2021 Overview: Added automatically from request for surgery [id number] Malignant neoplasm of lower- inner quadrant of right breast of female, estrogen receptor positive 06/03/2017 07/06/2021 Personal history of breast cancer 12/18/2016 04/09/2021 Overview: Added automatically from request for surgery [id number] Permanent atrial fibrillation 12/26/2015 Diverticulitis of large [...] of this encounter (statuses as of 08/14/2021) [facility] Narrative* Problem Noted Date Resolved Date Dysuria 07/06/2021 07/08/2021 Obesity, Class I, BMI 30-34.9 01/12/2021 GI bleed 01/12/2021 01/14/2021 Acute blood loss anemia 01/12/2021 01/15/20 21 LLQ pain 09/05/2017 04/09/2021 Overview: Added automatically from request for surgery [id number] Malignant neoplasm of lower- inner quadrant of right breast of female, estrogen receptor positive 06/03/2017 07/06/2021 Personal history of breast cancer 12/18/2016 04/09/2021 Overview: Added automatically from request for surgery [id number] Permanent atrial fibrillation 12/26/2015 Diverticulitis of large [...] of this encounter (statuses as of 08/15/2021) [facility] Narrative* Problem Noted Date Resolved Date Dysuria 07/06/2021 07/08/2021 Obesity, Class I, BMI 30-34.9 01/12/2021 GI bleed 01/12/2021 01/14/2021 Acute blood loss anemia 01/12/2021 01/15/20 21 LLQ pain 09/05/2017 04/09/2021 Overview: Added automatically from request for surgery [id number] Malignant neoplasm of lower- inner quadrant of right breast of female, estrogen receptor positive 06/03/2017 07/06/2021 Personal history of breast cancer 12/18/2016 04/09/2021 Overview: Added automatically from request for surgery [id number] Permanent atrial fibrillation 12/26/2015 Diverticulitis of large [...] of this encounter (statuses as of 08/16/2021) [facility] Narrative* Problem Noted Date Resolved Date Dysuria 07/06/2021 07/08/2021 Obesity, Class I, BMI 30-34.9 01/12/2021 GI bleed 01/12/2021 01/14/2021 Acute blood loss anemia 01/12/2021 01/15/20 21 LLQ pain 09/05/2017 04/09/2021 Overview: Added automatically from request for surgery [id number] Malignant neoplasm of lower- inner quadrant of right breast of female, estrogen receptor positive 06/03/2017 07/06/2021 Personal history of breast cancer 12/18/2016 04/09/2021 Overview: Added automatically from request for surgery [id number] Permanent atrial fibrillation 12/26/2015 Diverticulitis of large [...] of this encounter (statuses as of 08/17/2021) [facility] Narrative* Problem Noted Date Resolved Date Dysuria 07/06/2021 07/08/2021 Obesity, Class I, BMI 30-34.9 01/12/2021 GI bleed 01/12/2021 01/14/2021 Acute blood loss anemia 01/12/2021 01/15/20 21 LLQ pain 09/05/2017 04/09/2021 Overview: Added automatically from request for surgery [id number] Malignant neoplasm of lower- inner quadrant of right breast of female, estrogen receptor positive 06/03/2017 07/06/2021 Personal history of breast cancer 12/18/2016 04/09/2021 Overview: Added automatically from request for surgery [id number] Permanent atrial fibrillation 12/26/2015 Diverticulitis of large [...] of this encounter (statuses as of 08/20/2021) [facility] Narrative* Problem Noted Date Resolved Date Dysuria 07/06/2021 07/08/2021 Obesity, Class I, BMI 30-34.9 01/12/2021 GI bleed 01/12/2021 01/14/2021 Acute blood loss anemia 01/12/2021 01/15/20 LLQ pain 09/05/2017 04/09/2021 Overview: Added automatically from request for surgery [id number] Malignant neoplasm of lower- inner quadrant of right breast of female, estrogen receptor positive 06/03/2017 07/06/2021 Personal history of breast cancer 12/18/2016 04/09/2021 Overview: Added automatically from request for surgery [id number] Permanent atrial fibrillation 12/26/2015 Diverticulitis of large [...] of this encounter (statuses as of 08/22/2021) [facility] Narrative* Problem Noted Date Resolved Date Dysuria 07/06/2021 07/08/2021 Obesity, Class I, BMI 30-34.9 01/12/2021 GI bleed 01/12/2021 01/14/2021 Acute blood loss anemia 01/12/2021 01/15/20 21 LLQ pain 09/05/2017 04/09/2021 Overview: Added automatically from request for surgery [id number] Malignant neoplasm of lower- inner quadrant of right breast of female, estrogen receptor positive 06/03/2017 07/06/2021 Personal history of breast cancer 12/18/2016 04/09/2021 Overview: Added automatically from request for surgery [id number] Permanent atrial fibrillation 12/26/2015 Diverticulitis of large [...] of this encounter (statuses as of 08/26/2021) [facility] Narrative* Problem Noted Date Resolved Date Dysuria 07/06/2021 07/08/2021 Obesity, Class I, BMI 30-34.9 01/12/2021 GI bleed 01/12/2021 01/14/2021 Acute blood loss anemia 01/12/2021 01/15/20 21 LLQ pain 09/05/2017 04/09/2021 Overview: Added automatically from request for surgery [id number] Malignant neoplasm of lower- inner quadrant of right breast of female, estrogen receptor positive 06/03/2017 07/06/2021 Personal history of breast cancer 12/18/2016 04/09/2021 Overview: Added automatically from request for surgery [id number] Permanent atrial fibrillation 12/26/2015 Diverticulitis of large [...] by Dr. Merino on recommendation of Dr. Angeilne nath documented as of this encounter (statuses as of 08/26/2021) [facility] Narrative* Problem Noted Date Resolved Date Dysuria 07/06/2021 07/08/2021 Obesity, Class I, BMI 30-34.9 01/12/2021 GI bleed 01/12/2021 01/14/2021 Acute blood loss anemia 01/12/2021 01/15/20 21 LLQ pain 09/05/2017 04/09/2021 Overview: Added automatically from request for surgery [id number] Malignant neoplasm of lower- inner quadrant of right breast of female, estrogen receptor positive 06/03/2017 07/06/2021 Personal history of breast cancer 12/18/2016 04/09/2021 Overview: Added automatically from request for surgery [id number] Permanent atrial fibrillation 12/26/2015 Diverticulitis of large [...] of this encounter (statuses as of 08/26/2021) [facility] Narrative* Problem Noted Date Resolved Date Dysuria 07/06/2021 07/08/2021 Obesity, Class I, BMI 30-34.9 01/12/2021 GI bleed 01/12/2021 01/14/2021 Acute blood loss anemia 01/12/2021 01/15/20 LLQ pain 09/05/2017 04/09/2021 Overview: Added automatically from request for surgery [id number] Malignant neoplasm of lower- inner quadrant of right breast of female, estrogen receptor positive 06/03/2017 07/06/2021 Personal history of breast cancer 12/18/2016 04/09/2021 Overview: Added automatically from request for surgery [id number] Permanent atrial fibrillation 12/26/2015 Diverticulitis of large [...] of this encounter (statuses as of 08/26/2021) [facility] Narrative* Problem Noted Date Resolved Date Dysuria 07/06/2021 07/08/2021 Obesity, Class I, BMI 30-34.9 01/12/2021 GI bleed 01/12/2021 01/14/2021 Acute blood loss anemia 01/12/2021 01/15/20 LLQ pain 09/05/2017 04/09/2021 Overview: Added automatically from request for surgery [id number] Malignant neoplasm of lower- inner quadrant of right breast of female, estrogen receptor positive 06/03/2017 07/06/2021 Personal history of breast cancer 12/18/2016 04/09/2021 Overview: Added automatically from request for surgery [id number] Permanent atrial fibrillation 12/26/2015 Diverticulitis of large [...] of this encounter (statuses as of 08/28/2021) [facility] Narrative* Problem Noted Date Resolved Date Dysuria 07/06/2021 07/08/2021 Obesity, Class I, BMI 30-34.9 01/12/2021 GI bleed 01/12/2021 01/14/2021 Acute blood loss anemia 01/12/2021 01/15/20 21 LLQ pain 09/05/2017 04/09/2021 Overview: Added automatically from request for surgery [id number] Malignant neoplasm of lower- inner quadrant of right breast of female, estrogen receptor positive 06/03/2017 07/06/2021 Personal history of breast cancer 12/18/2016 04/09/2021 Overview: Added automatically from request for surgery [id number] Permanent atrial fibrillation 12/26/2015 Diverticulitis of large [...] of this encounter (statuses as of 08/28/2021) [facility] Narrative* Problem Noted Date Resolved Date Dysuria 07/06/2021 07/08/2021 Obesity, Class I, BMI 30-34.9 01/12/2021 GI bleed 01/12/2021 01/14/2021 Acute blood loss anemia 01/12/2021 01/15/20 LLQ pain 09/05/2017 04/09/2021 Overview: Added automatically from request for surgery [id number] Malignant neoplasm of lower- inner quadrant of right breast of female, estrogen receptor positive 06/03/2017 07/06/2021 Personal history of breast cancer 12/18/2016 04/09/2021 Overview: Added automatically from request for surgery [id number] Permanent atrial fibrillation 12/26/2015 Diverticulitis of large [...] of this encounter (statuses as of 08/30/2021) [facility]04-[facility]-2022 History of Past illness Narrative* Problem Noted Date Resolved Date Dysuria 07/06/2021 07/08/2021 Obesity, Class I, BMI 30-34.9 01/12/2021 GI bleed 01/12/2021 01/14/2021 Acute blood loss anemia 01/12/2021 01/15/20 LLQ pain 09/05/2017 04/09/2021 Overview: Added automatically from request for surgery [id number] Malignant neoplasm of lower- inner quadrant of right breast of female, estrogen receptor positive 06/03/2017 07/06/2021 Personal history of breast cancer 12/18/2016 04/09/2021 Overview: Added automatically from request for surgery [id number] Permanent atrial fibrillation 12/26/2015 Diverticulitis of large [...] of this encounter (statuses as of 08/31/2021) [facility]22 History of Past illness Narrative* Problem Noted Date Resolved Date Dysuria 07/06/2021 07/08/2021 Obesity, Class I, BMI 30-34.9 01/12/2021 GI bleed 01/12/2021 01/14/2021 Acute blood loss anemia 01/12/2021 01/15/20 21 LLQ pain 09/05/2017 04/09/2021 Overview: Added automatically from request for surgery [id number] Malignant neoplasm of lower- inner quadrant of right breast of female, estrogen receptor positive 06/03/2017 07/06/2021 Personal history of breast cancer 12/18/2016 04/09/2021 Overview: Added automatically from request for surgery [id number] Permanent atrial fibrillation 12/26/2015 Diverticulitis of large [...] of this encounter (statuses as of 09/05/2021) [facility] History of Past illness Narrative* Problem Noted Date Resolved Date Dysuria 07/06/2021 07/08/2021 Obesity, Class I, BMI 30-34.9 01/12/2021 GI bleed 01/12/2021 01/14/2021 Acute blood loss anemia 01/12/2021 01/15/20 21 LLQ pain 09/05/2017 04/09/2021 Overview: Added automatically from request for surgery [id number] Malignant neoplasm of lower- inner quadrant of right breast of female, estrogen receptor positive 06/03/2017 07/06/2021 Personal history of breast cancer 12/18/2016 04/09/2021 Overview: Added automatically from request for surgery [id number] Permanent atrial fibrillation 12/26/2015 Diverticulitis of large [...] of this encounter (statuses as of 09/05/2021) [facility] History of Past illness Narrative* Problem Noted Date Resolved Date Dysuria 07/06/2021 07/08/2021 Obesity, Class I, BMI 30-34.9 01/12/2021 GI bleed 01/12/2021 01/14/2021 Acute blood loss anemia 01/12/2021 01/15/20 LLQ pain 09/05/2017 04/09/2021 Overview: Added automatically from request for surgery [id number] Malignant neoplasm of lower- inner quadrant of right breast of female, estrogen receptor positive 06/03/2017 07/06/2021 Personal history of breast cancer 12/18/2016 04/09/2021 Overview: Added automatically from request for surgery [id number] Permanent atrial fibrillation 12/26/2015 Diverticulitis of large [...] of this encounter (statuses as of 09/07/2021) [facility] History of Past illness Narrative* Problem Noted Date Resolved Date Dysuria 07/06/2021 07/08/2021 Obesity, Class I, BMI 30-34.9 01/12/2021 GI bleed 01/12/2021 01/14/2021 Acute blood loss anemia 01/12/2021 01/15/20 LLQ pain 09/05/2017 04/09/2021 Overview: Added automatically from request for surgery [id number] Malignant neoplasm of lower- inner quadrant of right breast of female, estrogen receptor positive 06/03/2017 07/06/2021 Personal history of breast cancer 12/18/2016 04/09/2021 Overview: Added automatically from request for surgery [id number] Permanent atrial fibrillation 12/26/2015 Diverticulitis of large [...] of this encounter (statuses as of 09/10/2021) [facility] History of Past illness Narrative* Problem Noted Date Resolved Date Dysuria 07/06/2021 07/08/2021 Obesity, Class I, BMI 30-34.9 01/12/2021 GI bleed 01/12/2021 01/14/2021 Acute blood loss anemia 01/12/2021 01/15/20 21 LLQ pain 09/05/2017 04/09/2021 Overview: Added automatically from request for surgery [id number] Malignant neoplasm of lower- inner quadrant of right breast of female, estrogen receptor positive 06/03/2017 07/06/2021 Personal history of breast cancer 12/18/2016 04/09/2021 Overview: Added automatically from request for surgery [id number] Permanent atrial fibrillation 12/26/2015 Diverticulitis of large [...] of this encounter (statuses as of 09/11/2021) [facility] History of Past illness Narrative* Problem Noted Date Resolved Date Dysuria 07/06/2021 07/08/2021 Obesity, Class I, BMI 30-34.9 01/12/2021 GI bleed 01/12/2021 01/14/2021 Acute blood loss anemia 01/12/2021 01/15/20 21 LLQ pain 09/05/2017 04/09/2021 Overview: Added automatically from request for surgery [id number] Malignant neoplasm of lower- inner quadrant of right breast of female, estrogen receptor positive 06/03/2017 07/06/2021 Personal history of breast cancer 12/18/2016 04/09/2021 Overview: Added automatically from request for surgery [id number] Permanent atrial fibrillation 12/26/2015 Diverticulitis of large [...] of this encounter (statuses as of 09/12/2021) [facility] History of Past illness Narrative* Problem Noted Date Resolved Date Dysuria 07/06/2021 07/08/2021 Obesity, Class I, BMI 30-34.9 01/12/2021 GI bleed 01/12/2021 01/14/2021 Acute blood loss anemia 01/12/2021 01/15/20 21 LLQ pain 09/05/2017 04/09/2021 Overview: Added automatically from request for surgery [id number] Malignant neoplasm of lower- inner quadrant of right breast of female, estrogen receptor positive 06/03/2017 07/06/2021 Personal history of breast cancer 12/18/2016 04/09/2021 Overview: Added automatically from request for surgery [id number] Permanent atrial fibrillation 12/26/2015 Diverticulitis of large [...] of this encounter (statuses as of 09/18/2021) [facility] History of Past illness Narrative* Problem Noted Date Resolved Date Dysuria 07/06/2021 07/08/2021 Obesity, Class I, BMI 30-34.9 01/12/2021 GI bleed 01/12/2021 01/14/2021 Acute blood loss anemia 01/12/2021 01/15/20 21 LLQ pain 09/05/2017 04/09/2021 Overview: Added automatically from request for surgery [id number] Malignant neoplasm of lower- inner quadrant of right breast of female, estrogen receptor positive 06/03/2017 07/06/2021 Personal history of breast cancer 12/18/2016 04/09/2021 Overview: Added automatically from request for surgery [id number] Permanent atrial fibrillation 12/26/2015 Diverticulitis of large [...] of this encounter (statuses as of 09/18/2021) [facility] History of Past illness Narrative* Problem Noted Date Resolved Date Dysuria 07/06/2021 07/08/2021 Obesity, Class I, BMI 30-34.9 01/12/2021 GI bleed 01/12/2021 01/14/2021 Acute blood loss anemia 01/12/2021 01/15/20 21 LLQ pain 09/05/2017 04/09/2021 Overview: Added automatically from request for surgery [id number] Malignant neoplasm of lower- inner quadrant of right breast of female, estrogen receptor positive 06/03/2017 07/06/2021 Personal history of breast cancer 12/18/2016 04/09/2021 Overview: Added automatically from request for surgery [id number] Permanent atrial fibrillation 12/26/2015 Diverticulitis of large [...] of this encounter (statuses as of 09/19/2021) [facility] History of Past illness Narrative* Problem Noted Date Resolved Date Dysuria 07/06/2021 07/08/2021 Obesity, Class I, BMI 30-34.9 01/12/2021 GI bleed 01/12/2021 01/14/2021 Acute blood loss anemia 01/12/2021 01/15/20 21 LLQ pain 09/05/2017 04/09/2021 Overview: Added automatically from request for surgery [id number] Malignant neoplasm of lower- inner quadrant of right breast of female, estrogen receptor positive 06/03/2017 07/06/2021 Personal history of breast cancer 12/18/2016 04/09/2021 Overview: Added automatically from request for surgery [id number] Permanent atrial fibrillation 12/26/2015 Diverticulitis of large [...] of this encounter (statuses as of 09/28/2021) [facility] History of Past illness Narrative* Problem Noted Date Resolved Date Dysuria 07/06/2021 07/08/2021 Obesity, Class I, BMI 30-34.9 01/12/2021 GI bleed 01/12/2021 01/14/2021 Acute blood loss anemia 01/12/2021 01/15/20 LLQ pain 09/05/2017 04/09/2021 Overview: Added automatically from request for surgery [id number] Malignant neoplasm of lower- inner quadrant of right breast of female, estrogen receptor positive 06/03/2017 07/06/2021 Personal history of breast cancer 12/18/2016 04/09/2021 Overview: Added automatically from request for surgery [id number] Permanent atrial fibrillation 12/26/2015 Diverticulitis of large [...] of this encounter (statuses as of 10/02/2021) [facility] History of Past illness Narrative* Problem Noted Date Resolved Date Dysuria 07/06/2021 07/08/2021 Obesity, Class I, BMI 30-34.9 01/12/2021 GI bleed 01/12/2021 01/14/2021 Acute blood loss anemia 01/12/2021 01/15/20 LLQ pain 09/05/2017 04/09/2021 Overview: Added automatically from request for surgery [id number] Malignant neoplasm of lower- inner quadrant of right breast of female, estrogen receptor positive 06/03/2017 07/06/2021 Personal history of breast cancer 12/18/2016 04/09/2021 Overview: Added automatically from request for surgery [id number] Permanent atrial fibrillation 12/26/2015 Diverticulitis of large [...] of this encounter (statuses as of 10/11/2021) [facility] History of Past illness Narrative* Problem Noted Date Resolved Date Dysuria 07/06/2021 07/08/2021 Obesity, Class I, BMI 30-34.9 01/12/2021 GI bleed 01/12/2021 01/14/2021 Acute blood loss anemia 01/12/2021 01/15/20 21 LLQ pain 09/05/2017 04/09/2021 Overview: Added automatically from request for surgery [id number] Malignant neoplasm of lower- inner quadrant of right breast of female, estrogen receptor positive 06/03/2017 07/06/2021 Personal history of breast cancer 12/18/2016 04/09/2021 Overview: Added automatically from request for surgery [id number] Permanent atrial fibrillation 12/26/2015 Diverticulitis of large [...] of this encounter (statuses as of 10/15/2021) [facility] History of Past illness Narrative* Problem Noted Date Resolved Date Dysuria 07/06/2021 07/08/2021 Obesity, Class I, BMI 30-34.9 01/12/2021 GI bleed 01/12/2021 01/14/2021 Acute blood loss anemia 01/12/2021 01/15/20 21 LLQ pain 09/05/2017 04/09/2021 Overview: Added automatically from request for surgery [id number] Malignant neoplasm of lower- inner quadrant of right breast of female, estrogen receptor positive 06/03/2017 07/06/2021 Personal history of breast cancer 12/18/2016 04/09/2021 Overview: Added automatically from request for surgery [id number] Permanent atrial fibrillation 12/26/2015 Diverticulitis of large [...] of this encounter (statuses as of 10/15/2021) [facility] History of Past illness Narrative* Problem Noted Date Resolved Date Dysuria 07/06/2021 07/08/2021 Obesity, Class I, BMI 30-34.9 01/12/2021 GI bleed 01/12/2021 01/14/2021 Acute blood loss anemia 01/12/2021 01/15/20 21 LLQ pain 09/05/2017 04/09/2021 Overview: Added automatically from request for surgery [id number] Malignant neoplasm of lower- inner quadrant of right breast of female, estrogen receptor positive 06/03/2017 07/06/2021 Personal history of breast cancer 12/18/2016 04/09/2021 Overview: Added automatically from request for surgery [id number] Permanent atrial fibrillation 12/26/2015 Diverticulitis of large [...] of this encounter (statuses as of 10/16/2021) [facility] History of Past illness Narrative* Problem Noted Date Resolved Date Dysuria 07/06/2021 07/08/2021 Obesity, Class I, BMI 30-34.9 01/12/2021 GI bleed 01/12/2021 01/14/2021 Acute blood loss anemia 01/12/2021 01/15/20 21 LLQ pain 09/05/2017 04/09/2021 Overview: Added automatically from request for surgery [id number] Malignant neoplasm of lower- inner quadrant of right breast of female, estrogen receptor positive 06/03/2017 07/06/2021 Personal history of breast cancer 12/18/2016 04/09/2021 Overview: Added automatically from request for surgery [id number] Permanent atrial fibrillation 12/26/2015 Diverticulitis of large [...] of this encounter (statuses as of 10/17/2021) [facility] History of Past illness Narrative* Problem Noted Date Resolved Date Dysuria 07/06/2021 07/08/2021 Obesity, Class I, BMI 30-34.9 01/12/2021 GI bleed 01/12/2021 01/14/2021 Acute blood loss anemia 01/12/2021 01/15/20 21 LLQ pain 09/05/2017 04/09/2021 Overview: Added automatically from request for surgery [id number] Malignant neoplasm of lower- inner quadrant of right breast of female, estrogen receptor positive 06/03/2017 07/06/2021 Personal history of breast cancer 12/18/2016 04/09/2021 Overview: Added automatically from request for surgery [id number] Permanent atrial fibrillation 12/26/2015 Diverticulitis of large [...] of this encounter (statuses as of 10/17/2021) [facility] History of Past illness Narrative* Problem Noted Date Resolved Date Dysuria 07/06/2021 07/08/2021 Obesity, Class I, BMI 30-34.9 01/12/2021 GI bleed 01/12/2021 01/14/2021 Acute blood loss anemia 01/12/2021 01/15/20 LLQ pain 09/05/2017 04/09/2021 Overview: Added automatically from request for surgery [id number] Malignant neoplasm of lower- inner quadrant of right breast of female, estrogen receptor positive 06/03/2017 07/06/2021 Personal history of breast cancer 12/18/2016 04/09/2021 Overview: Added automatically from request for surgery [id number] Permanent atrial fibrillation 12/26/2015 Diverticulitis of large [...] of this encounter (statuses as of 10/22/2021) [facility] History of Past illness Narrative* Problem Noted Date Resolved Date Dysuria 07/06/2021 07/08/2021 Obesity, Class I, BMI 30-34.9 01/12/2021 GI bleed 01/12/2021 01/14/2021 Acute blood loss anemia 01/12/2021 01/15/20 21 LLQ pain 09/05/2017 04/09/2021 Overview: Added automatically from request for surgery [id number] Malignant neoplasm of lower- inner quadrant of right breast of female, estrogen receptor positive 06/03/2017 07/06/2021 Personal history of breast cancer 12/18/2016 04/09/2021 Overview: Added automatically from request for surgery [id number] Permanent atrial fibrillation 12/26/2015 Diverticulitis of large [...] of this encounter (statuses as of 11/02/2021) [facility] History of Past illness Narrative* Problem Noted Date Resolved Date Dysuria 07/06/2021 07/08/2021 Obesity, Class I, BMI 30-34.9 01/12/2021 GI bleed 01/12/2021 01/14/2021 Acute blood loss anemia 01/12/2021 01/15/20 LLQ pain 09/05/2017 04/09/2021 Overview: Added automatically from request for surgery [id number] Malignant neoplasm of lower- inner quadrant of right breast of female, estrogen receptor positive 06/03/2017 07/06/2021 Personal history of breast cancer 12/18/2016 04/09/2021 Overview: Added automatically from request for surgery [id number] Permanent atrial fibrillation 12/26/2015 Diverticulitis of large [...] eMrino on recommendation of Dr. Angeline nath Last Assessment & Plan: She is on asacol for the past few months, it was started by Dr. Merino on recommendation of Dr. Angeline nath documented as of this encounter (statuses as of 11/06/2021) [facility] History of Past illness Narrative* Problem Noted Date Resolved Date Dysuria 07/06/2021 07/08/2021 Obesity, Class I, BMI 30-34.9 01/12/2021 GI bleed 01/12/2021 01/14/2021 Acute blood loss anemia 01/12/2021 01/15/20 LLQ pain 09/05/2017 04/09/2021 Overview: Added automatically from request for surgery [id number] Malignant neoplasm of lower- inner quadrant of right breast of female, estrogen receptor positive 06/03/2017 07/06/2021 Personal history of breast cancer 12/18/2016 04/09/2021 Overview: Added automatically from request for surgery [id number] Permanent atrial fibrillation 12/26/2015 Diverticulitis of large [...] of this encounter (statuses as of 11/13/2021) [facility] History of Past illness Narrative* Problem Noted Date Resolved Date Dysuria 07/06/2021 07/08/2021 Obesity, Class I, BMI 30-34.9 01/12/2021 GI bleed 01/12/2021 01/14/2021 Acute blood loss anemia 01/12/2021 01/15/20 21 LLQ pain 09/05/2017 04/09/2021 Overview: Added automatically from request for surgery [id number] Malignant neoplasm of lower- inner quadrant of right breast of female, estrogen receptor positive 06/03/2017 07/06/2021 Personal history of breast cancer 12/18/2016 04/09/2021 Overview: Added automatically from request for surgery [id number] Permanent atrial fibrillation 12/26/2015 Diverticulitis of large [...] of this encounter (statuses as of 12/11/2021) [facility] History of Past illness Narrative* Problem Noted Date Resolved Date Dysuria 07/06/2021 07/08/2021 Obesity, Class I, BMI 30-34.9 01/12/2021 GI bleed 01/12/2021 01/14/2021 Acute blood loss anemia 01/12/2021 01/15/20 LLQ pain 09/05/2017 04/09/2021 Overview: Added automatically from request for surgery [id number] Malignant neoplasm of lower- inner quadrant of right breast of female, estrogen receptor positive 06/03/2017 07/06/2021 Personal history of breast cancer 12/18/2016 04/09/2021 Overview: Added automatically from request for surgery [id number] Permanent atrial fibrillation 12/26/2015 Diverticulitis of large [...] of this encounter (statuses as of 12/25/2021) [facility] History of Past illness Narrative* Problem Noted Date Resolved Date Dysuria 07/06/2021 07/08/2021 Obesity, Class I, BMI 30-34.9 01/12/2021 GI bleed 01/12/2021 01/14/2021 Acute blood loss anemia 01/12/2021 01/15/20 21 LLQ pain 09/05/2017 04/09/2021 Overview: Added automatically from request for surgery [id number] Malignant neoplasm of lower- inner quadrant of right breast of female, estrogen receptor positive 06/03/2017 07/06/2021 Personal history of breast cancer 12/18/2016 04/09/2021 Overview: Added automatically from request for surgery [id number] Permanent atrial fibrillation 12/26/2015 Diverticulitis of large [...] of this encounter (statuses as of 01/02/2022) [facility] History of Past illness Narrative* Problem Noted Date Resolved Date Dysuria 07/06/2021 07/08/2021 Obesity, Class I, BMI 30-34.9 01/12/2021 GI bleed 01/12/2021 01/14/2021 Acute blood loss anemia 01/12/2021 01/15/20 21 LLQ pain 09/05/2017 04/09/2021 Overview: Added automatically from request for surgery [id number] Malignant neoplasm of lower- inner quadrant of right breast of female, estrogen receptor positive 06/03/2017 07/06/2021 Personal history of breast cancer 12/18/2016 04/09/2021 Overview: Added automatically from request for surgery [id number] Permanent atrial fibrillation 12/26/2015 Diverticulitis of large [...] of this encounter (statuses as of 01/08/2022) [facility] History of Past illness Narrative* Problem Noted Date Resolved Date Dysuria 07/06/2021 07/08/2021 Obesity, Class I, BMI 30-34.9 01/12/2021 GI bleed 01/12/2021 01/14/2021 Acute blood loss anemia 01/12/2021 01/15/20 21 LLQ pain 09/05/2017 04/09/2021 Overview: Added automatically from request for surgery [id number] Malignant neoplasm of lower- inner quadrant of right breast of female, estrogen receptor positive 06/03/2017 07/06/2021 Personal history of breast cancer 12/18/2016 04/09/2021 Overview: Added automatically from request for surgery [id number] Permanent atrial fibrillation 12/26/2015 Diverticulitis of large [...] of this encounter (statuses as of 01/21/2022) [facility] History of Past illness Narrative* Problem Noted Date Resolved Date Dysuria 07/06/2021 07/08/2021 Obesity, Class I, BMI 30-34.9 01/12/2021 GI bleed 01/12/2021 01/14/2021 Acute blood loss anemia 01/12/2021 01/15/20 21 LLQ pain 09/05/2017 04/09/2021 Overview: Added automatically from request for surgery [id number] Malignant neoplasm of lower- inner quadrant of right breast of female, estrogen receptor positive 06/03/2017 07/06/2021 Personal history of breast cancer 12/18/2016 04/09/2021 Overview: Added automatically from request for surgery [id number] Permanent atrial fibrillation 12/26/2015 Diverticulitis of large [...] by Dr. Merino on recommendation of Dr. Angleine nath Last Assessment & Plan: She is on asacol for the past few months, it was started by Dr. Merino on recommendation of Dr. Angeline nath documented as of this encounter (statuses as of 02/05/2022) [facility] History of Past illness Narrative* Problem Noted Date Resolved Date Dysuria 07/06/2021 07/08/2021 Obesity, Class I, BMI 30-34.9 01/12/2021 GI bleed 01/12/2021 01/14/2021 Acute blood loss anemia 01/12/2021 01/15/20 21 LLQ pain 09/05/2017 04/09/2021 Overview: Added automatically from request for surgery [id number] Malignant neoplasm of lower- inner quadrant of right breast of female, estrogen receptor positive 06/03/2017 07/06/2021 Personal history of breast cancer 12/18/2016 04/09/2021 Overview: Added automatically from request for surgery [id number] Permanent atrial fibrillation 12/26/2015 Diverticulitis of large [...] of this encounter (statuses as of 03/09/2022) [facility] History of Past illness Narrative* Problem Noted Date Resolved Date Dysuria 07/06/2021 07/08/2021 Obesity, Class I, BMI 30-34.9 01/12/2021 GI bleed 01/12/2021 01/14/2021 Acute blood loss anemia 01/12/2021 01/15/20 21 LLQ pain 09/05/2017 04/09/2021 Overview: Added automatically from request for surgery [id number] Malignant neoplasm of lower- inner quadrant of right breast of female, estrogen receptor positive 06/03/2017 07/06/2021 Personal history of breast cancer 12/18/2016 04/09/2021 Overview: Added automatically from request for surgery [id number] Permanent atrial fibrillation 12/26/2015 Diverticulitis of large [...] of this encounter (statuses as of 03/17/2022) [facility] History of Past illness Narrative* Problem Noted Date Resolved Date Dysuria 07/06/2021 07/08/2021 Obesity, Class I, BMI 30-34.9 01/12/20212 GI bleed 01/12/2021 01/14/2021 Acute blood loss anemia 01/12/2021 01/15/20 LLQ pain 09/05/2017 04/09/2021 Overview: Added automatically from request for surgery [id number] Malignant neoplasm of lower- inner quadrant of right breast of female, estrogen receptor positive 06/03/2017 07/06/2021 Personal history of breast cancer 12/18/2016 04/09/2021 Overview: Added automatically from request for surgery [id number] Permanent atrial fibrillation 12/26/2015 Diverticulitis of large [...] of this encounter (statuses as of 03/20/2022) [facility] History of Past illness Narrative* Problem Noted Date Resolved Date Dysuria 07/06/2021 07/08/2021 Obesity, Class I, BMI 30-34.9 01/12/2021 GI bleed 01/12/2021 01/14/2021 Acute blood loss anemia 01/12/2021 01/15/20 21 LLQ pain 09/05/2017 04/09/2021 Overview: Added automatically from request for surgery [id number] Malignant neoplasm of lower- inner quadrant of right breast of female, estrogen receptor positive 06/03/2017 07/06/2021 Personal history of breast cancer 12/18/2016 04/09/2021 Overview: Added automatically from request for surgery [id number] Permanent atrial fibrillation 12/26/2015 Diverticulitis of large [...] of this encounter (statuses as of 03/23/2022) [facility] History of Past illness Narrative* Problem Noted Date Resolved Date Dysuria 07/06/2021 07/08/2021 Obesity, Class I, BMI 30-34.9 01/12/2021 GI bleed 01/12/2021 01/14/2021 Acute blood loss anemia 01/12/2021 01/15/20 21 LLQ pain 09/05/2017 04/09/2021 Overview: Added automatically from request for surgery [id number] Malignant neoplasm of lower- inner quadrant of right breast of female, estrogen receptor positive 06/03/2017 07/06/2021 Personal history of breast cancer 12/18/2016 04/09/2021 Overview: Added automatically from request for surgery [id number] Permanent atrial fibrillation 12/26/2015 Diverticulitis of large [...] of this encounter (statuses as of 03/23/2022) [facility] History of Past illness Narrative* Problem Noted Date Resolved Date Dysuria 07/06/2021 07/08/2021 Obesity, Class I, BMI 30-34.9 01/12/2021 GI bleed 01/12/2021 01/14/2021 Acute blood loss anemia 01/12/2021 01/15/20 LLQ pain 09/05/2017 04/09/2021 Overview: Added automatically from request for surgery [id number] Malignant neoplasm of lower- inner quadrant of right breast of female, estrogen receptor positive 06/03/2017 07/06/2021 Personal history of breast cancer 12/18/2016 04/09/2021 Overview: Added automatically from request for surgery [id number] Permanent atrial fibrillation 12/26/2015 Diverticulitis of large [...] of this encounter (statuses as of 03/25/2022) [facility]04-22-2022 History of Past illness Narrative* Problem Noted Date Resolved Date Dysuria 07/06/2021 07/08/2021 Obesity, Class I, BMI 30-34.9 01/12/2021 GI bleed 01/12/2021 01/14/2021 Acute blood loss anemia 01/12/2021 01/15/20 21 LLQ pain 09/05/2017 04/09/2021 Overview: Added automatically from request for surgery [id number] Malignant neoplasm of lower- inner quadrant of right breast of female, estrogen receptor positive 06/03/2017 07/06/2021 Personal history of breast cancer 12/18/2016 04/09/2021 Overview: Added automatically from request for surgery [id number] Permanent atrial fibrillation 12/26/2015 Diverticulitis of large [...] 02/04/2008 04/15/2014 Episode Elevated Glucose after Steriod 200 8 04/15/2014 Diarrhea 10/14/2007 04/14/2013 Abdominal pain, [...] of this encounter (statuses as of 04/08/2022) [facility]2022 History of Past illness Narrative* Problem Noted Date Resolved Date Dysuria 07/06/2021 07/08/2021 Obesity, Class I, BMI 30-34.9 01/12/2021 GI bleed 01/12/2021 01/14/2021 Acute blood loss anemia 01/12/2021 01/15/20 21 LLQ pain 09/05/2017 04/09/2021 Overview: Added automatically from request for surgery [id number] Malignant neoplasm of lower- inner quadrant of right breast of female, estrogen receptor positive 06/03/2017 07/06/2021 Personal history of breast cancer 12/18/2016 04/09/2021 Overview: Added automatically from request for surgery [id number] Permanent atrial fibrillation 12/26/2015 Diverticulitis of large [...] of this encounter (statuses as of 04/10/2022) [facility] History of Past illness Narrative* Problem Noted Date Resolved Date Dysuria 07/06/2021 07/08/2021 Obesity, Class I, BMI 30-34.9 01/12/2021 GI bleed 01/12/2021 01/14/2021 Acute blood loss anemia 01/12/2021 01/15/20 LLQ pain 09/05/2017 04/09/2021 Overview: Added automatically from request for surgery [id number] Malignant neoplasm of lower- inner quadrant of right breast of female, estrogen receptor positive 06/03/2017 07/06/2021 Personal history of breast cancer 12/18/2016 04/09/2021 Overview: Added automatically from request for surgery [id number] Permanent atrial fibrillation 12/26/2015 Diverticulitis of large [...] of this encounter (statuses as of 04/12/2022) [facility] History of Past illness Narrative* Problem Noted Date Resolved Date Dysuria 07/06/2021 07/08/2021 Obesity, Class I, BMI 30-34.9 01/12/2021 GI bleed 01/12/2021 01/14/2021 Acute blood loss anemia 01/12/2021 01/15/20 21 LLQ pain 09/05/2017 04/09/2021 Overview: Added automatically from request for surgery [id number] Malignant neoplasm of lower- inner quadrant of right breast of female, estrogen receptor positive 06/03/2017 07/06/2021 Personal history of breast cancer 12/18/2016 04/09/2021 Overview: Added automatically from request for surgery [id number] Permanent atrial fibrillation 12/26/2015 Diverticulitis of large [...] of this encounter (statuses as of 04/15/2022) [facility] History of Past illness Narrative* Problem Noted Date Resolved Date Dysuria 07/06/2021 07/08/2021 Obesity, Class I, BMI 30-34.9 01/12/2021 GI bleed 01/12/2021 01/14/2021 Acute blood loss anemia 01/12/2021 01/15/20 21 LLQ pain 09/05/2017 04/09/2021 Overview: Added automatically from request for surgery [id number] Malignant neoplasm of lower- inner quadrant of right breast of female, estrogen receptor positive 06/03/2017 07/06/2021 Personal history of breast cancer 12/18/2016 04/09/2021 Overview: Added automatically from request for surgery [id number] Permanent atrial fibrillation 12/26/2015 Diverticulitis of large [...] of this encounter (statuses as of 04/16/2022) [facility] History of Past illness Narrative* Problem Noted Date Resolved Date Dysuria 07/06/2021 07/08/2021 Obesity, Class I, BMI 30-34.9 01/12/2021 GI bleed 01/12/2021 01/14/2021 Acute blood loss anemia 01/12/2021 01/15/20 LLQ pain 09/05/2017 04/09/2021 Overview: Added automatically from request for surgery [id number] Malignant neoplasm of lower- inner quadrant of right breast of female, estrogen receptor positive 06/03/2017 07/06/2021 Personal history of breast cancer 12/18/2016 04/09/2021 Overview: Added automatically from request for surgery [id number] Permanent atrial fibrillation 12/26/2015 Diverticulitis of large [...] of this encounter (statuses as of 04/16/2022) [facility] History of Past illness Narrative* Problem Noted Date Resolved Date Dysuria 07/06/2021 07/08/2021 Obesity, Class I, BMI 30-34.9 01/12/2021 GI bleed 01/12/2021 01/14/2021 Acute blood loss anemia 01/12/2021 01/15/20 21 LLQ pain 09/05/2017 04/09/2021 Overview: Added automatically from request for surgery [id number] Malignant neoplasm of lower- inner quadrant of right breast of female, estrogen receptor positive 06/03/2017 07/06/2021 Personal history of breast cancer 12/18/2016 04/09/2021 Overview: Added automatically from request for surgery [id number] Permanent atrial fibrillation 12/26/2015 Diverticulitis of large [...] of this encounter (statuses as of 04/17/2022) [facility] History of Past illness Narrative* Problem Noted Date Resolved Date Dysuria 07/06/2021 07/08/2021 Obesity, Class I, BMI 30-34.9 01/12/2021 GI bleed 01/12/2021 01/14/2021 Acute blood loss anemia 01/12/2021 01/15/20 21 LLQ pain 09/05/2017 04/09/2021 Overview: Added automatically from request for surgery [id number] Malignant neoplasm of lower- inner quadrant of right breast of female, estrogen receptor positive 06/03/2017 07/06/2021 Personal history of breast cancer 12/18/2016 04/09/2021 Overview: Added automatically from request for surgery [id number] Permanent atrial fibrillation 12/26/2015 Diverticulitis of large [...] 2008. On tamoxifen Last Assessment & Plan: Summer [...] of this encounter (statuses as of 04/22/2022) [facility] History of Past illness Narrative* Problem Noted Date Resolved Date Dysuria 07/06/2021 07/08/2021 Obesity, Class I, BMI 30-34.9 01/12/2021 GI bleed 01/12/2021 01/14/2021 Acute blood loss anemia 01/12/2021 01/15/20 LLQ pain 09/05/2017 04/09/2021 Overview: Added automatically from request for surgery [id number] Malignant neoplasm of lower- inner quadrant of right breast of female, estrogen receptor positive 06/03/2017 07/06/2021 Personal history of breast cancer 12/18/2016 04/09/2021 Overview: Added automatically from request for surgery [id number] Permanent atrial fibrillation 12/26/2015 Diverticulitis of large [...] of this encounter (statuses as of 05/30/2022) [facility] History of Past illness Narrative* Problem Noted Date Resolved Date Dysuria 07/06/2021 07/08/2021 Obesity, Class I, BMI 30-34.9 01/12/2021 GI bleed 01/12/2021 01/14/2021 Acute blood loss anemia 01/12/2021 01/15/20 LLQ pain 09/05/2017 04/09/2021 Overview: Added automatically from request for surgery [id number] Malignant neoplasm of lower- inner quadrant of right breast of female, estrogen receptor positive 06/03/2017 07/06/2021 Personal history of breast cancer 12/18/2016 04/09/2021 Overview: Added automatically from request for surgery [id number] Permanent atrial fibrillation 12/26/2015 Diverticulitis of large [...] of this encounter (statuses as of 06/07/2022) [facility] History of Past illness Narrative* Problem Noted Date Resolved Date Dysuria 07/06/2021 07/08/2021 Obesity, Class I, BMI 30-34.9 01/12/2021 GI bleed 01/12/2021 01/14/2021 Acute blood loss anemia 01/12/2021 01/15/20 21 LLQ pain 09/05/2017 04/09/2021 Overview: Added automatically from request for surgery [id number] Malignant neoplasm of lower- inner quadrant of right breast of female, estrogen receptor positive 06/03/2017 07/06/2021 Personal history of breast cancer 12/18/2016 04/09/2021 Overview: Added automatically from request for surgery [id number] Permanent atrial fibrillation 12/26/2015 Diverticulitis of large [...] of this encounter (statuses as of 06/11/2022) [facility] History of Past illness Narrative* Problem Noted Date Resolved Date Dysuria 07/06/2021 07/08/2021 Obesity, Class I, BMI 30-34.9 01/12/2021 GI bleed 01/12/2021 01/14/2021 Acute blood loss anemia 01/12/2021 01/15/20 LLQ pain 09/05/2017 04/09/2021 Overview: Added automatically from request for surgery [id number] Malignant neoplasm of lower- inner quadrant of right breast of female, estrogen receptor positive 06/03/2017 07/06/2021 Personal history of breast cancer 12/18/2016 04/09/2021 Overview: Added automatically from request for surgery [id number] Permanent atrial fibrillation 12/26/2015 Diverticulitis of large [...] of this encounter (statuses as of 06/18/2022) [facility] History of Past illness Narrative* Problem Noted Date Resolved Date Dysuria 07/06/2021 07/08/2021 Obesity, Class I, BMI 30-34.9 01/12/2021 GI bleed 01/12/2021 01/14/2021 Acute blood loss anemia 01/12/2021 01/15/20 21 LLQ pain 09/05/2017 04/09/2021 Overview: Added automatically from request for surgery [id number] Malignant neoplasm of lower- inner quadrant of right breast of female, estrogen receptor positive 06/03/2017 07/06/2021 Personal history of breast cancer 12/18/2016 04/09/2021 Overview: Added automatically from request for surgery [id number] Permanent atrial fibrillation 12/26/2015 Diverticulitis of large [...] of this encounter (statuses as of 08/29/2022) [facility] History of Past illness Narrative* Problem Noted Date Resolved Date Dysuria 07/06/2021 07/08/2021 Obesity, Class I, BMI 30-34.9 01/12/2021 GI bleed 01/12/2021 01/14/2021 Acute blood loss anemia 01/12/2021 01/15/20 21 LLQ pain 09/05/2017 04/09/2021 Overview: Added automatically from request for surgery [id number] Malignant neoplasm of lower- inner quadrant of right breast of female, estrogen receptor positive 06/03/2017 07/06/2021 Personal history of breast cancer 12/18/2016 04/09/2021 Overview: Added automatically from request for surgery [id number] Permanent atrial fibrillation 12/26/2015 Diverticulitis of large [...] of this encounter (statuses as of 09/05/2022) [facility] History of Past illness Narrative* Problem Noted Date Resolved Date Dysuria 07/06/2021 07/08/2021 Obesity, Class I, BMI 30-34.9 01/12/2021 GI bleed 01/12/2021 01/14/2021 Acute blood loss anemia 01/12/2021 01/15/20 21 LLQ pain 09/05/2017 04/09/2021 Overview: Added automatically from request for surgery [id number] Malignant neoplasm of lower- inner quadrant of right breast of female, estrogen receptor positive 06/03/2017 07/06/2021 Personal history of breast cancer 12/18/2016 04/09/2021 Overview: Added automatically from request for surgery [id number] Permanent atrial fibrillation 12/26/2015 Diverticulitis of large [...] of this encounter (statuses as of 09/20/2022) [facility] History of Past illness Narrative* Problem Noted Date Diagnosed Date Resolved Date Dysuria 07/06/2021 07/08/2021 Obesity, Class I, BMI 30-34.9 01/12/2021 04/09/2021 GI bleed 01/12/2021 01/14/2021 Acute blood loss anemia 01/12/2021 10/03/2020 LLQ pain 09/05/2017 04/09/2021 Overview: Added automatically from request for surgery [id number] Malignant neoplasm of lower- inner quadrant of right breast of female, estrogen receptor positive 06/03/2017 07/06/2021 Personal history of breast cancer 12/18/2016 04/09/2021 Overview: Added automatically from request for surgery [id number] Permanent atrial fibrillation 12/26/2015 07/01/2018 Diverticulitis of [...] of this encounter (statuses as of 09/25/2022) [facility] History of Past illness Narrative* Problem Noted Date Diagnosed Date Resolved Date Dysuria 07/06/2021 07/08/2021 Obesity, Class I, BMI 30-34.9 01/12/2021 04/09/2021 GI bleed 01/12/2021 01/14/2021 Acute blood loss anemia 01/12/202112/17 LLQ pain 09/05/2017 04/09/2021 Overview: Added automatically from request for surgery [id number] Malignant neoplasm of lower- inner quadrant of right breast of female, estrogen receptor positive 06/03/2017 07/06/2021 Personal history of breast cancer 12/18/2016 04/09/2021 Overview: Added automatically from request for surgery [id number] Permanent atrial fibrillation 12/26/2015 07/01/2018 Diverticulitis of [...] of this encounter (statuses as of 10/23/2022) [facility] History of Past illness Narrative* Problem Noted Date Diagnosed Date Resolved Date Dysuria 07/06/2021 07/08/2021 Obesity, Class I, BMI 30-34.9 01/12/2021 04/09/2021 GI bleed 01/12/2021 01/14/2021 Acute blood loss anemia 01/12/202112/17 LLQ pain 09/05/2017 04/09/2021 Overview: Added automatically from request for surgery [id number] Malignant neoplasm of lower- inner quadrant of right breast of female, estrogen receptor positive 06/03/2017 07/06/2021 Personal history of breast cancer 12/18/2016 04/09/2021 Overview: Added automatically from request for surgery [id number] Permanent atrial fibrillation 12/26/2015 07/01/2018 Diverticulitis of [...] of this encounter (statuses as of 11/15/2022) [facility] History of Past illness Narrative* Problem Noted Date Diagnosed Date Resolved Date Dysuria 07/06/2021 07/08/2021 Obesity, Class I, BMI 30-34.9 01/12/2021 04/09/2021 GI bleed 01/12/2021 01/14/2021 Acute blood loss anemia 01/12/202112/17 LLQ pain 09/05/2017 04/09/2021 Overview: Added automatically from request for surgery [id number] Malignant neoplasm of lower- inner quadrant of right breast of female, estrogen receptor positive 06/03/2017 07/06/2021 Personal history of breast cancer 12/18/2016 04/09/2021 Overview: Added automatically from request for surgery [id number] Permanent atrial fibrillation 12/26/2015 07/01/2018 Diverticulitis of [...] of this encounter (statuses as of 11/26/2022) [facility] History of Past illness Narrative* Problem Noted Date Diagnosed Date Resolved Date Dysuria 07/06/2021 07/08/2021 Obesity, Class I, BMI 30-34.9 01/12/2021 04/09/2021 GI bleed 01/12/2021 01/14/2021 Acute blood loss anemia 01/12/2021 10/03/2020 LLQ pain 09/05/2017 04/09/2021 Overview: Added automatically from request for surgery [id number] Malignant neoplasm of lower- inner quadrant of right breast of female, estrogen receptor positive 06/03/2017 07/06/2021 Personal history of breast cancer 12/18/2016 04/09/2021 Overview: Added automatically from request for surgery [id number] Permanent atrial fibrillation 12/26/2015 07/01/2018 Diverticulitis of [...] of this encounter (statuses as of 11/27/2022) [facility] History of Past illness Narrative* Problem Noted Date Diagnosed Date Resolved Date Dysuria 07/06/2021 07/08/2021 Obesity, Class I, BMI 30-34.9 01/12/2021 04/09/2021 GI bleed 01/12/2021 01/14/2021 Acute blood loss anemia 01/12/202112/17 LLQ pain 09/05/2017 04/09/2021 Overview: Added automatically from request for surgery [id number] Malignant neoplasm of lower- inner quadrant of right breast of female, estrogen receptor positive 06/03/2017 07/06/2021 Personal history of breast cancer 12/18/2016 04/09/2021 Overview: Added automatically from request for surgery [id number] Permanent atrial fibrillation 12/26/2015 07/01/2018 Diverticulitis of [...] of this encounter (statuses as of 12/14/2022) [facility] History of Past illness Narrative* Problem Noted Date Diagnosed Date Resolved Date Dysuria 07/06/2021 07/08/2021 Obesity, Class I, BMI 30-34.9 01/12/2021 04/09/2021 GI bleed 01/12/2021 01/14/2021 Acute blood loss anemia 01/12/202112/17 LLQ pain 09/05/2017 04/09/2021 Overview: Added automatically from request for surgery [id number] Malignant neoplasm of lower- inner quadrant of right breast of female, estrogen receptor positive (HCC) 06/03/2017 07/06/2021 Personal history of breast cancer 12/18/2016 04/09/2021 Overview: Added automatically from request for surgery [id number] Permanent atrial fibrillation 12/26/2015 07/01/2018 Diverticulitis of [...] of this encounter (statuses as of 12/18/2022) [facility] History of Past illness Narrative* Problem Noted Date Diagnosed Date Resolved Date Dysuria 07/06/2021 07/08/2021 Obesity, Class I, BMI 30-34.9 01/12/2021 04/09/2021 GI bleed 01/12/2021 01/14/2021 Acute blood loss anemia 01/12/202112/17 LLQ pain 09/05/2017 04/09/2021 Overview: Added automatically from request for surgery [id number] Malignant neoplasm of lower- inner quadrant of right breast of female, estrogen receptor positive (HCC) 06/03/2017 07/06/2021 Personal history of breast cancer 12/18/2016 04/09/2021 Overview: Added automatically from request for surgery [id number] Permanent atrial fibrillation 12/26/2015 07/01/2018 Diverticulitis of [...] of this encounter (statuses as of 12/21/2022) [facility] History of Past illness Narrative* Problem Noted Date Diagnosed Date Resolved Date Dysuria 07/06/2021 07/08/2021 Obesity, Class I, BMI 30-34.9 01/12/2021 04/09/2021 GI bleed 01/12/2021 01/14/2021 Acute blood loss anemia 01/12/202112/17 LLQ pain 09/05/2017 04/09/2021 Overview: Added automatically from request for surgery [id number] Malignant neoplasm of lower- inner quadrant of right breast of female, estrogen receptor positive (HCC) 06/03/2017 07/06/2021 Personal history of breast cancer 12/18/2016 04/09/2021 Overview: Added automatically from request for surgery [id number] Permanent atrial fibrillation 12/26/2015 07/01/2018 Diverticulitis of [...] of this encounter (statuses as of 01/14/2023) [facility] History of Past illness Narrative* Problem Noted Date Diagnosed Date Resolved Date Dysuria 07/06/2021 07/08/2021 Obesity, Class I, BMI 30-34.9 01/12/2021 04/09/2021 GI bleed 01/12/2021 01/14/2021 Acute blood loss anemia 01/12/202112/17 LLQ pain 09/05/2017 04/09/2021 Overview: Added automatically from request for surgery [id number] Malignant neoplasm of lower- inner quadrant of right breast of female, estrogen receptor positive 06/03/2017 07/06/2021 Personal history of breast cancer 12/18/2016 04/09/2021 Overview: Added automatically from request for surgery [id number] Permanent atrial fibrillation 12/26/2015 07/01/2018 Diverticulitis of [...] of this encounter (statuses as of 01/19/2023) [facility] History of Past illness Narrative* Problem Noted Date Diagnosed Date Resolved Date Dysuria 07/06/2021 07/08/2021 Obesity, Class I, BMI 30-34.9 01/12/2021 04/09/2021 GI bleed 01/12/2021 01/14/2021 Acute blood loss anemia 01/12/202112/17 LLQ pain 09/05/2017 04/09/2021 Overview: Added automatically from request for surgery [id number] Malignant neoplasm of lower- inner quadrant of right breast of female, estrogen receptor positive 06/03/2017 07/06/2021 Personal history of breast cancer 12/18/2016 04/09/2021 Overview: Added automatically from request for surgery [id number] Permanent atrial fibrillation 12/26/2015 07/01/2018 Diverticulitis of [...] of this encounter (statuses as of 01/19/2023) [facility] History of Past illness Narrative* Problem Noted Date Diagnosed Date Resolved Date Dysuria 07/06/2021 07/08/2021 Obesity, Class I, BMI 30-34.9 01/12/2021 04/09/2021 GI bleed 01/12/2021 01/14/2021 Acute blood loss anemia 01/12/202112/17 LLQ pain 09/05/2017 04/09/2021 Overview: Added automatically from request for surgery [id number] Malignant neoplasm of lower- inner quadrant of right breast of female, estrogen receptor positive (HCC) 06/03/2017 07/06/2021 Personal history of breast cancer 12/18/2016 04/09/2021 Overview: Added automatically from request for surgery [id number] Permanent atrial fibrillation 12/26/2015 07/01/2018 Diverticulitis of [...] of this encounter (statuses as of 02/12/2023) [facility] History of Past illness Narrative* Problem Noted Date Diagnosed Date Resolved Date Dysuria 07/06/2021 07/08/2021 Obesity, Class I, BMI 30-34.9 01/12/2021 04/09/2021 GI bleed 01/12/2021 01/14/2021 Acute blood loss anemia 01/12/202112/17 LLQ pain 09/05/2017 04/09/2021 Overview: Added automatically from request for surgery [id number] Malignant neoplasm of lower- inner quadrant of right breast of female, estrogen receptor positive (HCC) 06/03/2017 07/06/2021 Personal history of breast cancer 12/18/2016 04/09/2021 Overview: Added automatically from request for surgery [id number] Permanent atrial fibrillation 12/26/2015 07/01/2018 Diverticulitis of [...] of this encounter (statuses as of 04/25/2023) [facility] History of Past illness Narrative* Problem Noted Date Diagnosed Date Resolved Date Dysuria 07/06/2021 07/08/2021 Obesity, Class I, BMI 30-34.9 01/12/2021 04/09/2021 GI bleed 01/12/2021 01/14/2021 Acute blood loss anemia 01/12/202112/17 LLQ pain 09/05/2017 04/09/2021 Overview: Added automatically from request for surgery [id number] Malignant neoplasm of lower- inner quadrant of right breast of female, estrogen receptor positive (HCC) 06/03/2017 07/06/2021 Personal history of breast cancer 12/18/2016 04/09/2021 Overview: Added automatically from request for surgery [id number] Permanent atrial fibrillation 12/26/2015 07/01/2018 Diverticulitis of [...] of this encounter (statuses as of 04/30/2023) [facility] History of Past illness Narrative* Problem Noted Date Diagnosed Date Resolved Date Dysuria 07/06/2021 07/08/2021 Obesity, Class I, BMI 30-34.9 01/12/2021 04/09/2021 GI bleed 01/12/2021 01/14/2021 Acute blood loss anemia 01/12/2021 10/03/2020 LLQ pain 09/05/2017 04/09/2021 Overview: Added automatically from request for surgery [id number] Malignant neoplasm of lower- inner quadrant of right breast of female, estrogen receptor positive 06/03/2017 07/06/2021 Personal history of breast cancer 12/18/2016 04/09/2021 Overview: Added automatically from request for surgery [id number] Permanent atrial fibrillation 12/26/2015 07/01/2018 Diverticulitis of [...] of this encounter (statuses as of 05/19/2023) [facility] History of Past illness Narrative* Problem Noted Date Diagnosed Date Resolved Date Dysuria 07/06/2021 07/08/2021 Obesity, Class I, BMI 30-34.9 01/12/2021 04/09/2021 GI bleed 01/12/2021 01/14/2021 Acute blood loss anemia 01/12/202112/17 LLQ pain 09/05/2017 04/09/2021 Overview: Added automatically from request for surgery [id number] Malignant neoplasm of lower- inner quadrant of right breast of female, estrogen receptor positive 06/03/2017 07/06/2021 Personal history of breast cancer 12/18/2016 04/09/2021 Overview: Added automatically from request for surgery [id number] Permanent atrial fibrillation 12/26/2015 07/01/2018 Diverticulitis of [...] of this encounter (statuses as of 06/07/2023) [facility] History of Past illness Narrative* Problem Noted Date Diagnosed Date Resolved Date Dysuria 07/06/2021 07/08/2021 Obesity, Class I, BMI 30-34.9 01/12/2021 04/09/2021 GI bleed 01/12/2021 01/14/2021 Acute blood loss anemia 01/12/202112/17 LLQ pain 09/05/2017 04/09/2021 Overview: Added automatically from request for surgery [id number] Malignant neoplasm of lower- inner quadrant of right breast of female, estrogen receptor positive 06/03/2017 07/06/2021 Personal history of breast cancer 12/18/2016 04/09/2021 Overview: Added automatically from request for surgery [id number] Permanent atrial fibrillation 12/26/2015 07/01/2018 Diverticulitis of [...] of this encounter (statuses as of 06/10/2023) [facility] History of Past illness Narrative* Problem Noted Date Diagnosed Date Resolved Date Dysuria 07/06/2021 07/08/2021 Obesity, Class I, BMI 30-34.9 01/12/2021 04/09/2021 GI bleed 01/12/2021 01/14/2021 Acute blood loss anemia 01/12/202112/17 LLQ pain 09/05/2017 04/09/2021 Overview: Added automatically from request for surgery [id number] Malignant neoplasm of lower- inner quadrant of right breast of female, estrogen receptor positive 06/03/2017 07/06/2021 Personal history of breast cancer 12/18/2016 04/09/2021 Overview: Added automatically from request for surgery [id number] Permanent atrial fibrillation 12/26/2015 07/01/2018 Diverticulitis of [...] of this encounter (statuses as of 06/17/2023) [facility]04-22-2022 History of Past illness Narrative* Problem Noted Date Diagnosed Date Resolved Date Dysuria 07/06/2021 07/08/2021 Obesity, Class I, BMI 30-34.9 01/12/2021 04/09/2021 GI bleed 01/12/2021 01/14/2021 Acute blood loss anemia 01/12/2021/03/2020 LLQ pain 09/05/2017 04/09/2021 Overview: Added automatically from request for surgery [id number] Malignant neoplasm of lower- inner quadrant of right breast of female, estrogen receptor positive 06/03/2017 07/06/2021 Personal history of breast cancer 12/18/2016 04/09/2021 Overview: Added automatically from request for surgery [id number] Permanent atrial fibrillation 12/26/2015 07/01/2018 Diverticulitis of [...] of this encounter (statuses as of 06/18/2023) [facility] History of Past illness Narrative* Problem Noted Date Diagnosed Date Resolved Date Dysuria 07/06/2021 07/08/2021 Obesity, Class I, BMI 30-34.9 01/12/2021 04/09/2021 GI bleed 01/12/2021 01/14/2021 Acute blood loss anemia 01/12/202112/17 LLQ pain 09/05/2017 04/09/2021 Overview: Added automatically from request for surgery [id number] Malignant neoplasm of lower- inner quadrant of right breast of female, estrogen receptor positive 06/03/2017 07/06/2021 Personal history of breast cancer 12/18/2016 04/09/2021 Overview: Added automatically from request for surgery [id number] Permanent atrial fibrillation 12/26/2015 07/01/2018 Diverticulitis of [...] of this encounter (statuses as of 06/19/2023) [facility] History of Past illness Narrative* Problem Noted Date Diagnosed Date Resolved Date Dysuria 07/06/2021 07/08/2021 Obesity, Class I, BMI 30-34.9 01/12/2021 04/09/2021 GI bleed 01/12/2021 01/14/2021 Acute blood loss anemia 01/12/2021 10/3 03/2020 LLQ pain 09/05/2017 04/09/2021 Overview: Added automatically from request for surgery [id number] Malignant neoplasm of lower- inner quadrant of right breast of female, estrogen receptor positive 06/03/2017 07/06/2021 Personal history of breast cancer 12/18/2016 04/09/2021 Overview: Added automatically from request for surgery [id number] Permanent atrial fibrillation 12/26/2015 07/01/2018 Diverticulitis of [...] of this encounter (statuses as of 07/01/2023) [facility] History of Past illness Narrative* Problem Noted Date Diagnosed Date Resolved Date Dysuria 07/06/2021 07/08/2021 Obesity, Class I, BMI 30-34.9 01/12/2021 04/09/2021 GI bleed 01/12/2021 01/14/2021 Acute blood loss anemia 01/12/202112/17 LLQ pain 09/05/2017 04/09/2021 Overview: Added automatically from request for surgery [id number] Malignant neoplasm of lower- inner quadrant of right breast of female, estrogen receptor positive 06/03/2017 07/06/2021 Personal history of breast cancer 12/18/2016 04/09/2021 Overview: Added automatically from request for surgery [id number] Permanent atrial fibrillation 12/26/2015 07/01/2018 Diverticulitis of [...] of this encounter (statuses as of 07/02/2023) [facility] History of Past illness Narrative* Problem Noted Date Diagnosed Date Resolved Date Dysuria 07/06/2021 07/08/2021 Obesity, Class I, BMI 30-34.9 01/12/2021 04/09/2021 GI bleed 01/12/2021 01/14/2021 Acute blood loss anemia 01/12/202112/17 LLQ pain 09/05/2017 04/09/2021 Overview: Added automatically from request for surgery [id number] Malignant neoplasm of lower- inner quadrant of right breast of female, estrogen receptor positive 06/03/2017 07/06/2021 Personal history of breast cancer 12/18/2016 04/09/2021 Overview: Added automatically from request for surgery [id number] Permanent atrial fibrillation 12/26/2015 07/01/2018 Diverticulitis of [...] of this encounter (statuses as of 07/04/2023) [facility]04-22-[facility]22 Miscellaneous Notes* Telephone Encounter - Coreen Concepcion MD - 07/06/2021 12:10 PM EDT Had spoken to Dr. Turk regarding her plan- ERCP with prophylactic sphincterotomy and referral for cholecystectomy at [facility]. Unfortunately she will likely become obstructed regardless of ERCP because of this 3.3 cm stone. Called patient's daughter (patient did not answer), patient is currently in Emergency department with worsening pain, fevers. Will likely be admitted, high concern for biliary obstruction. [facility] History of Present illness Narrative* Johnny Turk MD - 07/05/2021 4:58 PM EDT HISTORY AND PHYSICAL hCristian Landrum 1935 REFERRING PHYSICIAN: Self CHIEF COMPLAINT: [...] had black tarry stools and presented to [facility] for post polypectomy bleed. At the [...] opinions from the recent CT scan at [facility] versus the prior scan, I elected to obtain an ultrasound and repeat laboratory studies. The CT scan from [facility] was supposed to be loaded into [...] 99 74 - 99 mg/dL Final The [place] [employer] (ADA) provides guidance for cutoff [...] Standards of Medical Care in Diabetes 2016, [place] [employer]. Diabetes Care. 2016.39(Suppl 1). BUN [...] addended to a previously final verified report. Lajas% 07/05/2021 14.0 % Final This is an addended report. These results have been addended to a previously final verified report. Abs Lajas 07/05/2021 1.22 (A) <0.87 k/uL Final This [...] Referred by noted on Friday to her surveyor geodetic. She question whether the patient truly had [...] mouth once daily. Taking 1000 glucosamine/msm/chondroitin A (CWRGTFBVMJA-WADZYV-EPA ORAL) Take 1 capsule by mouth once [...] 10 mL INTRAVENOUS DIRECTED PRN Aleks Estes APRN.INGE, NIKKI ALLERGIES: Clindamycin, Keflex [Cephalexin], Naprosyn [Naproxen], Desmond [...] Age of Onset other ( age 60 [place]) Mother hypertension and TB other (pancreatic cancer) [...] (98.6 F), height 167.6 cm (5' 6), fqeuxb57.8 kg (176 lb), SpO2 100 %. Body [...] to have her CT scan images from [facility] loaded in the [facility] system and compare this to the [...] needed. Johnny Turk MD documented in this encounterKn[facility]04[facility] Miscellaneous Notes* Telephone Encounter - Bernie Aguilar LPN - 07/05/2021 4:38 PM EDT Eloisa notified, verbalized understanding. Eloisa states that patient will be admitted into [facility] [place] tomorrow. Just an FYI * Telephone Encounter - Ambar Negrete APRN.TRACTOR MECHANIC HELPER - 07/05/2021 3:35 PM EDT PCP Galina Iraheta MD Seen by Alma Ta 07/03/2021. Seen by Dr Turk today for abdominal pain / gallstones. Please let her know short term norco provided. PDMP website checked and validated. All prescriptions have been APPROPRIATELY filled. No suspiciousactivity was identified. 07/05/2021 by Ambar Negrete APRN.TRACTOR MECHANIC HELPER * Telephone Encounter - Aliyah Oliva LPN - 07/05/2021 1:15 PM EDT Pt's daughter El[facility]isa called [facility]. Reports pt is [...] term for pain? Pt uses [facility] in [place]. Please call daughter Eloisa to notify her. Eloisa also asking for message to go to Dr Turk since pt was seen by him today. Aliyah Oliva LPN documented in this encounterKn[facility]04-[facility]22 History of Present illness Narrative* Alma Older, PATHOLOGY LABORATORY AIDE.RIVETER AUTOMOBILE BRAKES - 07/03/2021 12:15 PM EDT CC: Patient [...] mouth once daily. Taking 1000 glucosamine/msm/chondroitin A (LUWAYZAQXYS-HUSRJB-VHA ORAL) Take 1 capsule by mouth once [...] Age of Onset other ( age 60 DE) Mother hypertension and TB other (pancreatic cancer) [...] abdominal tenderness DATA REVIEWED: Outside chart from [facility] ER reviewed. ASSESSMENT/PLAN: 1. Dysuria - ICD9: 788.1, ICD10: R30.0 (primary diagnosis) Chronic. Urine cultures negative for UTI and no improvement with antibiotics. Differentials includeyeast infection, atrophic vaginitis, interstitial cystitis Start Diflucan for possible yeast infection Follow-up with SPOOLER OPERATOR as scheduled next week and discuss [...] plan. Alma Ta APRN.CNP documented in this encounterKnox [facility]04-19-2022 Miscellaneous Notes* Telephone Encounter - Madonna Dickson LPN - 07/03/2021 11:01 AM EDT Called [facility] medical records to fax ER visit from 07/02/21 . * Telephone Encounter - Madonna Dickson LPN - 07/03/2021 8:59 AM EDT Patient called wants to talk to Dr Turk, was in [facility] ER last night 07/02/21, [place] wanted to do surgery on gallbladder, patient declined, states wants to f/up with Dr Turk before proceeding. Please advise. 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 documented in this encounterKnox [facility] Hospital04-06-2022 Miscellaneous Notes* Telephone Encounter - Jerrica Rothman RPh - 06/20/2021 4:55 PM EDT Patient was due to test INR today will continue to monitor for results. Jerrica Rothman PharmD documented in this encounterKnox [facility] Hospital04-05-2022 Miscellaneous Notes* Telephone Encounter - Page Palmre - 06/19/2021 8:28 AM EDT Patient given results and verbalized understanding of instructions given. Page Palmer * Telephone Encounter - Basilia Cueto APRN.RIVETER AUTOMOBILE BRAKES - 06/19/2021 6:54 AM EDT Please inform patient that urine culture did not show any growth of bacteria requiring treatment. She may stop macrobid. Recommend patient follow up with Dr. Arzola as discussed at visit. Basilia Cueto APRN.CNP documented in this encounterKnox [facility] Hospital03-22-[facility]22 History of Present illness Narrative* Aby Bruner DO - 06/05/2021 11:00 AM EDT This office note has been dictated. Aby Bruner DO documented in this encounterKnox [facility] Hospital03-03-2022 History of Present illness Narrative* RT [...] 17, 2021 5:46 PM documented in this encounterKnox [facility] Hospital11-30-2021 Miscellaneous Notes* Telephone Encounter - Galina [...] Are you able to send refills to [facility]? Please advise patient. documented in this encounterKnox [facility] Hospital10-31-2021 NoteHNO ID: [id number] Author: Johnny Turk MD Service: General Surgery [...] VTE Prophylaxis/Anticoagulants 01/12/211999 activity - mobilize patient (dc,nj) VTE Prophylaxis: VTE prophylaxis appropriate SIGNATURE: Johnny Turk MD PATIENT NAME: Christian Landrum DATE: January 14, 2021 TIME: 12:07 PMLutheran [id number] NoteHNO ID: [id number] Author: Wendy Bonilla DO Service: Hospital Medicine Author Type: Physician Type: Progress Notes Filed: 01/13/2021 4:03 PM Note Text: DEPARTMENT OF HOSPITAL MEDICINE PROGRESS NOTE SERVICE DATE: 01/13/2021 SERVICE TIME: 3:50 PM Hospital Medicine/Primary Attending: Wendy Bonilla DO NIGHT AND WEEKEND COVERAGE: CAMAS COVERAGE: Days: [phone], please page attending physician. Nights: [phone], please page [place] Hospital[facility] Night coverage pager [phone]. Subjective INTERVAL HPI: feels well today. No [...] fatty liver in the past. Also on theatrical variety agent methotrexate. Noted positive Hepatitis B core ab I ordered the rest of the hepatitis serologies her Book Sewing Machine Operator recommended and she will need to f/u with GI outpatient Endometrial thickening on ultrasound Obtain transvaginal US If thickened endometrium then she needs to see (more content not included)... [facility] [id number] NoteHNO ID: [id number] Author: Kamila Rodrigues, CT Service: Radiology Author Type: Clinical Washing Machine Repairer Type: Progress Notes Filed: 01/12/2021 4:19 PM [...] Landrum DATE: January 12, 2021 TIME: 4:06 PMLutheran [id number] History of Past illness Narrative* Problem Noted Date Resolved Date Obesity, Class I, BMI 30-34.9 01/12/2021 GI bleed 01/12/2021 01/14/2021 Acute blood loss anemia 01/12/2021 01/15/20 LLQ pain 09/05/2017 04/09/2021 Overview: Added automatically from request for surgery [id number] Personal history of breast cancer 12/18/2016 04/09/2021 Overview: Added automatically from request for surgery [id number] Permanent atrial fibrillation 12/26/2015 Diverticulitis of large [...] of this encounter (statuses as of 06/05/2021) [facility]10[facility] History of Past illness Narrative* Problem Noted Date Resolved Date Obesity, Class I, BMI 30-34.9 01/12/2021 GI bleed 01/12/2021 01/14/2021 Acute blood loss anemia 01/12/2021 01/15/20 LLQ pain 09/05/2017 04/09/2021 Overview: Added automatically from request for surgery [id number] Personal history of breast cancer 12/18/2016 04/09/2021 Overview: Added automatically from request for surgery [id number] Permanent atrial fibrillation 12/26/2015 Diverticulitis of large [...] of this encounter (statuses as of 06/19/2021) [facility] History of Past illness Narrative* Problem Noted Date Resolved Date Obesity, Class I, BMI 30-34.9 01/12/2021 GI bleed 01/12/2021 01/14/2021 Acute blood loss anemia 01/12/2021 01/15/20 21 LLQ pain 09/05/2017 04/09/2021 Overview: Added automatically from request for surgery [id number] Personal history of breast cancer 12/18/2016 04/09/2021 Overview: Added automatically from request for surgery [id number] Permanent atrial fibrillation 12/26/2015 Diverticulitis of large [...] of this encounter (statuses as of 06/22/2021) [facility] History of Past illness Narrative* Problem Noted Date Resolved Date Obesity, Class I, BMI 30-34.9 01/12/2021 GI bleed 01/12/2021 01/14/2021 Acute blood loss anemia 01/12/2021 01/15/20 LLQ pain 09/05/2017 04/09/2021 Overview: Added automatically from request for surgery [id number] Personal history of breast cancer 12/18/2016 04/09/2021 Overview: Added automatically from request for surgery [id number] Permanent atrial fibrillation 12/26/2015 Diverticulitis of large [...] of this encounter (statuses as of 06/26/2021) [facility] History of Past illness Narrative* Problem Noted Date Resolved Date Obesity, Class I, BMI 30-34.9 01/12/2021 GI bleed 01/12/2021 01/14/2021 Acute blood loss anemia 01/12/2021 01/15/20 LLQ pain 09/05/2017 04/09/2021 Overview: Added automatically from request for surgery [id number] Personal history of breast cancer 12/18/2016 04/09/2021 Overview: Added automatically from request for surgery [id number] Permanent atrial fibrillation 12/26/2015 Diverticulitis of large [...] of this encounter (statuses as of 07/03/2021) [facility] History of Past illness Narrative* Problem Noted Date Resolved Date Obesity, Class I, BMI 30-34.9 01/12/2021 GI bleed 01/12/2021 01/14/2021 Acute blood loss anemia 01/12/2021 01/15/20 21 LLQ pain 09/05/2017 04/09/2021 Overview: Added automatically from request for surgery [id number] Personal history of breast cancer 12/18/2016 04/09/2021 Overview: Added automatically from request for surgery [id number] Permanent atrial fibrillation 12/26/2015 Diverticulitis of large [...] of this encounter (statuses as of 07/05/2021) [facility] History of Past illness Narrative* Problem Noted Date Resolved Date Obesity, Class I, BMI 30-34.9 01/12/2021 GI bleed 01/12/2021 01/14/2021 Acute blood loss anemia 01/12/2021 01/15/20 LLQ pain 09/05/2017 04/09/2021 Overview: Added automatically from request for surgery [id number] Personal history of breast cancer 12/18/2016 04/09/2021 Overview: Added automatically from request for surgery [id number] Permanent atrial fibrillation 12/26/2015 Diverticulitis of large [...] of this encounter (statuses as of 07/05/2021) [facility] History of Past illness Narrative* Problem Noted Date Resolved Date Obesity, Class I, BMI 30-34.9 01/12/2021 GI bleed 01/12/2021 01/14/2021 Acute blood loss anemia 01/12/2021 01/15/20 LLQ pain 09/05/2017 04/09/2021 Overview: Added automatically from request for surgery [id number] Personal history of breast cancer 12/18/2016 04/09/2021 Overview: Added automatically from request for surgery [id number] Permanent atrial fibrillation 12/26/2015 Diverticulitis of large [...] of this encounter (statuses as of 07/06/2021) [facility] NoteHNO ID: [id number] Author: ANIKET Martin Service: Radiology Author Type: Clinical Washing Machine Repairer Type: Progress Notes Filed: 01/10/2021 10:31 AM [...] STATUS: Discontinued PROCEDURE TYPE: NM Stress: 12.1mCi [id number] was administered IV for Rest Imaging at 9:05 by ANIKET Martin. 31.2 mCi [id number] was administered IV for Stress Imaging at 10:02 by ANIKET Martin. PATIENT DISCHARGED TO: Ambulatory patient, left [place] department area. A Diagnostic radioactive procedure has taken place, with no further precautions necessary other than routine body substance precautions. More information regarding radiation safety can be found using this link: [email or web address] SIGNATURE: ANIKET Martin PATIENT NAME: Christian Landrum DATE: January 10, 2021 TIME: 10:30 AM PAGER/CONTACT #:[facility] [id number] History of Present illness Narrative* Gladis Beltran, [...] 27, 2020 4:17 PM documented in this encounterKnox [facility] Hospital02-19-2021 History of Present illness Narrative* Gladis [...] 05, 2020 2:54 PM documented in this encounterKnox Community HospitalEvaluation note* Diagnosis Venous (peripheral) insufficiency- Primary Unspecified venous (peripheral) insufficiency [facility] Diagnosis alf (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 anticoagulants Long-term (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 anticoagulants Paroxysmal atrial fibrillation (HCC) Atrial fibrillation [facility] encounter [facility]* Diagnosis Malignant neoplasm of lower-inner quadrant of 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, estrogen receptor positive (HCC)- Primary [facility] noteNo assessment information availableWSycamore [facility] Work Phone: Evaluation note* Diagnosis Dysuria- Primary Right upper quadrant abdominal pain Abdominal pain, right upper quadrant Chronic anticoagulation Long-term (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 anticoagulants documented in this encounter [facility]* Diagnosis Polymyalgia rheumatica (HCC)- Primary Polymyalgia rheumatica documented in this encounter [facility]* Diagnosis Calculus of gallbladder without cholecystitis without obstruction- Primary Calculus of gallbladder without mention of cholecystitis or obstruction Secondary biliary cirrhosis (HCC) Biliary cirrhosis documented [facility] this encounter [facility]* Diagnosis Malignant neoplasm of lower-inner quadrant of right breast of female, estrogen receptor positive (HCC)- Primary documented in this encounter [facility]* Diagnosis alf (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 anticoagulants Long-term (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 anticoagulants Paroxysmal atrial fibrillation (HCC) Atrial fibrillation documented in this encounter [facility]* Diagnosis History of recent hospitalization- Primary Personal history of unspecified disease Dysuria Recurrent UTI Urinary tract infection, site not specified Cirrhosis of liver with ascites, unspecified hepatic cirrhosis type (HCC) Biliary colic Calculus of gallbladder without mention of cholecystitis or obstruction [facility]* Diagnosis Dysuria- Primary documented [facility] this encounter [facility]* Diagnosis alf (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 anticoagulants Long-term (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 anticoagulants Paroxysmal atrial fibrillation (HCC) Atrial fibrillation [facility] encounter [facility]* Diagnosis Acute cystitis without hematuria- Primary Acute cystitis PMB (postmenopausal bleeding) Postmenopausal bleeding Endometrial thickening on ultrasound [facility]* Diagnosis alf (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 anticoagulants Long-term (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 anticoagulants Paroxysmal atrial fibrillation (HCC) Atrial fibrillation [facility]* Diagnosis Onset Date Resolution Status Endometrial thickening on ultrasound acute PMB (postmenopausal bleeding) acute History of diverticulitis of colon chronic [facility] Work Phone: Evaluation note* Diagnosis PMB (postmenopausal bleeding)- Primary Postmenopausal bleeding Endometrial thickening on ultrasound [facility]* Diagnosis Old laceration of cervix uteri- Primary Old laceration of cervix Abnormal uterine bleeding (AUB) [facility]* Diagnosis Recurrent UTI- Primary Urinary tract infection, site not specified Mixed stress and urge urinary incontinence Mixed incontinence urge and stress (male)(female) Old laceration of cervix uteri Old laceration of cervix [facility]* Diagnosis alf (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 anticoagulants Long-term (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 anticoagulants Paroxysmal atrial fibrillation (HCC) Atrial fibrillation documented [facility] encounter [facility]* Diagnosis Paroxysmal atrial fibrillation (HCC)- Primary Atrial fibrillation Rheumatic mitral regurgitation Rheumatic mitral insufficiency Essential hypertension Unspecified essential hypertension Mixed hyperlipidemia Hyperglycemia Other abnormal glucose PAF (paroxysmal atrial fibrillation) (HCC) Atrial fibrillation Shortness of breath SVT (supraventricular tachycardia) (HCC) Other specified cardiac dysrhythmias [facility] Diagnosis Old laceration of cervix uteri- Primary Old laceration of cervix [facility]* Diagnosis Malignant neoplasm of lower-inner quadrant of right breast of female, estrogen receptor positive (HCC)- Primary [facility] Diagnosis Malignant neoplasm of lower-inner quadrant of right breast of female, estrogen receptor positive (HCC)- Primary [facility] encounter [facility]* Diagnosis Recurrent UTI- Primary Urinary tract infection, site not specified History of ESBL E. coli infection Personal history of other infectious and parasitic disease Mixed stress and urge urinary incontinence Mixed incontinence urge and stress (male)(female) [facility] Diagnosis Recurrent UTI Urinary tract infection, site not specified History of ESBL E. coli infection Personal history of other infectious and parasitic disease [facility] Diagnosis Chronic anticoagulation- Primary Long-term (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 anticoagulants documented in this encounter [facility] [facility] Malignant neoplasm of lower-inner quadrant of right breast of female, estrogen receptor positive (HCC)- Primary Chronic anticoagulation Long-term (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 anticoagulants [facility] Diagnosis alf (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 anticoagulants Long-term (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 anticoagulants Paroxysmal atrial fibrillation (HCC) Atrial fibrillation [facility] Diagnosis Onset Date Resolution Status History of diverticulitis of colon chronic Endometrial thickening on ultrasound resolved PMB (postmenopausal bleeding) resolved [facility] Work Phone: Evaluation note* Diagnosis BRBPR (bright red blood per rectum)- Primary Hemorrhage of rectum and anus alf (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 anticoagulants Long-term (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 anticoagulants Paroxysmal atrial fibrillation (HCC) Atrial fibrillation [facility] 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 Long-term (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 anticoagulants Paroxysmal atrial fibrillation (HCC) Atrial fibrillation [facility] Diagnosis Malignant neoplasm of lower-inner quadrant of right breast of female, estrogen receptor positive (HCC)- Primary [facility] Diagnosis Malignant neoplasm of lower-inner quadrant of right breast of female, estrogen receptor positive (HCC)- Primary [facility] Diagnosis Recurrent UTI- Primary Urinary tract infection, site not specified History of ESBL E. coli infection Personal history of other infectious and parasitic disease Vaginal atrophy Postmenopausal atrophic vaginitis [facility] Diagnosis Primary osteoarthritis of both knees- Primary Primary localized osteoarthrosis, lower leg Chronic pain of right knee [facility] Diagnosis Anemia, unspecified type- Primary [facility]* Diagnosis Malignant neoplasm of lower-inner quadrant of right breast of female, estrogen receptor positive (HCC)- Primary [facility] Diagnosis 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 (chronic) [facility] Diagnosis Malignant neoplasm of lower-inner quadrant of right breast of female, estrogen receptor positive (HCC)- Primary 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 blood loss (chronic) [facility] Diagnosis Iron deficiency anemia due to [...] Shortness of breath [facility] Diagnosis Personal history of breast cancer- [...] screening for osteoporosis [facility] Diagnosis Primary osteoarthritis of both knees- Primary Primary localized osteoarthrosis, lower leg [facility] Diagnosis Rheumatic mitral regurgitation- Primary Rheumatic mitral insufficiency Paroxysmal atrial fibrillation (HCC) Atrial fibrillation Essential hypertension Unspecified essential hypertension Obstructive sleep apnea syndrome Obstructive sleep apnea (adult) (pediatric) Mixed hyperlipidemia Shortness of breath SVT (supraventricular tachycardia) (HCC) Other specified cardiac dysrhythmias [facility] Diagnosis Chronic pain of left knee- Primary Pain in joint, lower leg Primary osteoarthritis of both knees Primary localized osteoarthrosis, lower leg [facility] Diagnosis Primary osteoarthritis of both knees Primary localized osteoarthrosis, lower leg [facility] Diagnosis Primary osteoarthritis of both knees- Primary Primary localized osteoarthrosis, lower leg [facility] Diagnosis Rheumatoid arthritis involving multiple sites, unspecified whether rheumatoid factor present (HCC)- Primary Osteopenia of multiple sites Medication monitoring encounter Encounter for therapeutic drug monitoring Long-term use of Plaquenil Encounter for long-term (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 other medications Platelets decreased (HCC) Thrombocytopenia, unspecified [facility] Diagnosis Recurrent UTI- Primary Urinary tract infection, site not specified Vaginal atrophy Postmenopausal atrophic vaginitis [facility] Diagnosis 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, unspecified laterality (HCC)- Primary [facility] Diagnosis Rheumatoid arthritis involving multiple sites with positive rheumatoid factor (HCC)- Primary Iron deficiency Iron deficiency anemia, unspecified [facility] Diagnosis Malignant neoplasm of lower-inner quadrant of right breast of female, estrogen receptor positive (HCC)- Primary 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 blood loss (chronic) [facility] Diagnosis Rheumatoid arthritis involving multiple sites with positive rheumatoid factor (HCC)- Primary [facility] Diagnosis Rheumatoid arthritis involving multiple sites with positive rheumatoid factor (HCC)- Primary [facility] Diagnosis Rheumatoid arthritis of multiple [...] therapeutic drug monitoring [facility] Diagnosis Rheumatoid arthritis of multiple sites [...] deficiency anemia, unspecified [facility] Diagnosis Rheumatoid arthritis of multiple sites [...] deficiency anemia, unspecified [facility] Diagnosis Rheumatoid arthritis of multiple sites [...] factor (HCC)- Primary [facility] Diagnosis Rheumatoid arthritis of multiple sites [...] Senile osteoporosis- Primary [facility] Diagnosis Rheumatoid arthritis of multiple sites [...] cardiac dysrhythmias Cough [facility] Diagnosis Rheumatoid arthritis of multiple sites [...] unspecified fever cause [facility] Diagnosis Rheumatoid arthritis of multiple sites [...] Chronic cough Cough documented in this encounter [facility] note* Diagnosis Rheumatoid arthritis of multiple [...] factor (HCC)- Primary documented in this encounter [facility] note* Diagnosis Rheumatoid arthritis of multiple [...] blood loss (chronic) [facility] Diagnosis Rheumatoid arthritis of multiple sites [...] in stool contents [facility] Diagnosis Rheumatoid arthritis of multiple [...] specified intestinal malabsorption [facility] Diagnosis Rheumatoid arthritis of multiple [...] therapeutic drug monitoring documented in this encounter [facility] note* Diagnosis Rheumatoid arthritis of multiple [...] specified intestinal malabsorption documented in this encounter [facility] note* Diagnosis Rheumatoid arthritis of multiple [...] region and thigh documented in this encounter [facility] note* Diagnosis Rheumatoid arthritis of multiple [...] in stool contents documented in this encounter [facility] note* Diagnosis Rheumatoid arthritis of multiple [...] On prednisone therapy [facility] Diagnosis Rheumatoid arthritis of multiple [...] (HCC) Senile osteoporosis [facility] Diagnosis Rheumatoid arthritis of multiple sites [...] On prednisone therapy [facility] Diagnosis Rheumatoid arthritis of multiple sites [...] blood loss (chronic) [facility] Diagnosis Rheumatoid arthritis of multiple sites [...] (chronic) documented in this encounter [facility] note* Diagnosis Rheumatoid arthritis of multiple [...] On prednisone therapy [facility] Additional Instructions Call and [...] either Friday or before you restart it. [facility] Work Phone[facility]: [facility] instructions Additional Instructions You are going to stop your Coumadin for 2 days. You are going to take the Aygestin 5 mg twice a day for 5 days. Please return here for worsening bleeding, dizziness, chest pain, any other concerns. [facility] instructions Additional Instructions Please follow-up with your PCP. Please use Tylenol for any fevers.[facility] Work Phone: Hospital Discharge instructions Additional Instructions You were given 1 unit of blood. Please follow-up with your primary care doctor for further monitoring of your blood levels.[facility] Work Phone: Hospital Discharge instructionsAdditional Instructions The CT scan of your head and cervical spine revealed no signs of acute trauma. X-rays of your right elbow and pelvis also showed no sign of fracture. Your urine does show changes consistent with UTI and therefore take the antibiotic as directed to help resolve this. Return to the ER should [facility] have [facility] Work [facility]: Reason for referral (narrative)* [...] LDS W/I&R Cecilio Ibarra DO [address] [address] [facility] [address] [place] [address] Referral ID Status Reason Start Date Expiration Date V isits Requested Visits Authorized [id number] Closed Auto-Generate d Referral 09/05/2021 09/05/2022 1 1 [facility] for referral (narrative)* Diagnostic Procedure Only (Routine) - Closed Specialty Diagnoses / Procedures Referred By Contac t Referred To Contact XR IMAGING Diagnoses Personal history of breast cancer Rib pain on right side Procedures XR RIBS 2V AP/OBL RIGHT RADEX RIBS UNILATERAL 2 VIEWS Cassidy Arreola APRN.[employer] [address] [place] [address] Xr Imaging Referral ID Status Reason Start Date Expiration Date V isits Requested Visits Authorized [id number] Closed Auto-Generate d Referral 06/05/2022 07/05/2023 1 1 [facility] for referral (narrative)* Diagnostic Procedure Only (Routine) - Closed Specialty Diagnoses / Procedures Referred By Contac t Referred To Contact XR IMAGING Diagnoses Pain in right wrist Procedures XR WRIST GENERAL 3V PA/LAT/OBL RIGHT RADEX WRIST COMPLETE MINIMUM 3 VIEWS Stella Preciado PA-C [address] [place] [address] [place] [address] Referral ID Status Reason Start Date Expiration Date V isits Requested Visits Authorized [id number] Closed Auto-Generate d Referral 11/25/2022 12/25/2023 1 1 [facility] for referral (narrative)* Diagnostic Procedure Only (Routine) - Closed Specialty Diagnoses / Procedures Referred By Contac t Referred To Contact XR IMAGING Diagnoses Personal history of breast cancer Rib pain on right side Procedures XR RIBS 2V AP/OBL RIGHT RADEX RIBS UNILATERAL 2 VIEWS Cassidy Arreola APRN.[employer] [address] [place] [address] [place] [address] Referral ID Status Reason Start Date Expiration Date V isits Requested Visits Authorized [id number] Closed Auto-Generate d Referral 06/05/2022 07/05/2023 1 1 [facility] for referral (narrative)* Diagnostic Procedure Only (Routine) - Closed Specialty Diagnoses / Procedures Referred By Contac t Referred To Contact XR IMAGING Diagnoses Pain in right wrist Procedures XR WRIST GENERAL 3V PA/LAT/OBL RIGHT RADEX WRIST COMPLETE MINIMUM 3 VIEWS Stella Preciado PA-C [address] [place] [address] [place] [address] Referral ID Status Reason Start Date Expiration Date V isits Requested Visits Authorized [id number] Closed Auto-Generate d Referral 11/25/2022 12/25/2023 1 1 [facility] for referral (narrative)* Diagnostic Procedure Only (Routine) - Pending Review Specialty Diagnoses / Procedures Referred By Contac t Referred To Contact XR IMAGING Diagnoses Primary osteoarthritis of both knees Procedures XR KNEE GENERAL 4V AP BOTH/PA BOTH/LAT/MERC BILATERAL RADIOLOGIC EXAM KNEE COMPLETE 4/MORE VIEWS Stella Preciado PA-C [address] [place] [address] [place] [address] Referral ID Status Reason Start Date Expiration Date Visits Requested Visits Authorized [id number] Pending Review Auto-Generat ed Referral 06/10/2023 07/09/2024 1 1 [facility] for referral (narrative)No reason for referral information availableWSy[facility] Work Phone: Reason for referral (narrative)* Clinic-Administered Medication (Routine) - Authorized Specialty Diagnoses / Procedures Referred By Contac t Referred To Contact [facility] Thalia Monterroso MD [facility] [place] [address] Phone: tel: fax: [facility] [address] [place] [id number] Referral ID Status Reason Start Date Expiration Date Visits Requested Visits Authorized [id number] Authorized Auto-Generat ed Referral 08/27/2024 11/25/2024 2 2 [facility] for visit Narrative* Diagnostic Procedure Only (Routine) - Closed Specialty Diagnoses / Procedures Referred By Contac t Referred To Contact XR IMAGING Diagnoses Personal history of breast cancer Rib pain on right side Procedures XR RIBS 2V AP/OBL RIGHT RADEX RIBS UNILATERAL 2 VIEWS Cassidy Arreola APRN.[employer] [address] [place] [address] [place] [address] Referral ID Status Reason Start Date Expiration Date V isits Requested Visits Authorized [id number] Closed Auto-Generate d Referral 06/05/2022 07/05/2023 1 1 [facility] for visit Narrative* Diagnostic Procedure Only (Routine) - Closed Specialty Diagnoses / Procedures Referred By Contac t Referred To Contact XR IMAGING Diagnoses Pain in right wrist Procedures XR WRIST GENERAL 3V PA/LAT/OBL RIGHT RADEX WRIST COMPLETE MINIMUM 3 VIEWS [employer] Stella, PA-C [address] [place] [address] [place] [address] Referral ID Status Reason Start Date Expiration Date V isits Requested Visits Authorized [id number] Closed Auto-Generate d Referral 11/25/2022 12/25/2023 1 1 [facility] for visit Narrative* Diagnostic Procedure Only (Routine) - Closed Specialty Diagnoses / Procedures Referred By Contac t Referred To Contact XR IMAGING Diagnoses Primary osteoarthritis of both knees Procedures XR KNEE GENERAL 4V AP BOTH/PA BOTH/LAT/MERC BILATERAL RADIOLOGIC EXAM KNEE COMPLETE 4/MORE VIEWS [employer] trejoa, PA-C [address] [place] [address] [place] [address] Referral ID Status Reason Start Date Expiration Date V isits Requested Visits Authorized [id number] Closed Auto-Generate d Referral 06/10/2023 07/09/2024 1 1 [facility] for visit Narrative* Diagnostic Procedure Only (Routine) - Closed Specialty Diagnoses / Procedures Referred By Contac t Referred To Contact XR IMAGING Diagnoses Bilateral hip pain Procedures XR HIP BILATERAL 5V PEL/AP/LAT EACH HIP RADEX HIPS BILATERAL WITH PELVIS MINIMUM 5 VIEWS Cassidy Arreola APRN.[employer] [address] [place] [address] [place] [address] Referral ID Status Reason Start Date Expiration Date V isits Requested Visits Authorized [id number] Closed Auto-Generate d Referral 02/24/2024 03/25/2025 1 1 [facility] Summary Purpose Family History No Family History Records FoundNo Family History Records FoundNo Family History Records FoundNo Family History Records FoundNo Family History Records Found Advance Directives No Advanced Directives Records FoundDocuments on File Type Date Recorded Patient Manager Mobility Expl anation Advance Directive(s) 01/12/2021 1:54 PM [...] No July 03, 2021 12:32am Power of Dry Chain Operator No July 03 12:32am Documents on File Type Date Recorded Patient Manager Mobility Expl anation Advance Directive(s) 07/06/2021 12:56 PM [...] Maker Relationship: Health Ca re Power of Dry Chain Operator Agent Latest Code Status on File Code Status Date Activated Date Inactivated Comments DNR-CCA 07/06/2021 6:27 PM 2021 5:16 PM Documents on File Type Date Recorded Patient Manager Mobility Expl anation Advance Directive(s) 08/12/2021 4:09 PM [...] August 20, 2021 8 :39am Power of Dry Chain Operator Yes August 20, 2021 8:39am Advance Directive Response Recorded Date/ Time Name of Medical Power of Dry Chain Operator DAUGHTER August 20, 2021 8:39am Living Will Yes August 26, 2021 1:00pm Power of Dry Chain Operator Yes August 26 1:00pm Documents on File Type Date Recorded Patient Manager Mobility Expl anation Advance Directive(s) 08/12/2021 4:09 PM [...] Date/ Time Name of Medical Power of Dry Chain Operator ALFREDO August 20, 2021 8:39am Name of Medical Power of Dry Chain Operator eloisa August 26, 2021 1:00pm Living Will No October 18, 2021 11:00am Power of Dry Chain Operator No October 18 11:00am Documents on File Type Date Recorded Patient Manager Mobility Expl anation Advance Directive(s) 09/28/2020 12:50 PM Advance Directive(s) 12/28/2008 Advance Directive Response Recorded Date/ Time Living Will No December 28 12:16pm Power of Dry Chain Operator No December 28, 2021 12:16pm Advance Directive Response Recorded Date/ Time Living Will No December 28 11:16am Power of Dry Chain Operator No December 28, 2021 11:16am Documents on File Type Date Recorded Patient Manager Mobility Expl anation Advance Directive(s) 09/28/2020 12:50 PM [...] Decision Maker Relationship: Health Care Power of Dry Chain Operator Agent Latest Code Status on File Code [...] Decision Maker Relationship: Health Care Power of Dry Chain Operator Agent Advance Directive Response Recorded Date/ Time Living Will No April 07 1:01pm Power of Dry Chain Operator No April 07, 2023 1:01pm Advance Directive Response Recorded Date/ Time Living Will No April 07 2:01pm Power of Dry Chain Operator No April 07, 2023 2:01pm Date Activated Date Inactivated Comments 08/12/2021 8:33 PM 08/13/2021 5:51 PM Question Answer Comments DNR Order Discussed With: Patient Date Activated Date Inactivated Comments 07/06/2021 6:27 PM 2021 5:16 PM Question Answer Comments DNR Order Discussed With: PatientSurrogate Decis ion Maker Surrogate Decision Maker Relationship: Health Ca re Power of Dry Chain Operator Agent Date Activated Date Inactivated Comments 08/12/2021 8:33 PM 08/13/2021 5:51 PM Question Answer Comments DNR Order Discussed With: Patient Date Activated Date Inactivated Comments 07/06/2021 6:27 PM 2021 5:16 PM Question Answer Comments DNR Order Discussed With: PatientSurrogate Decis ion Maker Surrogate Decision Maker Relationship: Health Ca re Power of Dry Chain Operator Agent Advance Directive Response Recorded Date/ Time Do you have a Healthcare Power of Dry Chain Operator? Yes September 14, 2024 5:43am Name of Medical Power of Dry Chain Operator lili--sai vail September 14, 2024 5:43am Chief Complaint and Reason for Visit Chief Complaint abd Chief Complaint abd HALFWAY BLOOD WORK Chief Complaint abd HALFWAY BLOOD WORK LAB WORK LAB WORK Chief Complaint abd HALFWAY BLOOD WORK LAB WORK LAB WORK hyster d&c symphion, polypectomy Reason for Visit Endometrial thickeni ng on ultrasound PMB (postmenopausal bleeding) History of diverticulitis of colon Chief Complaint abd HALFWAY BLOOD WORK LAB WORK LAB WORK hyster d&c symphion, polypectomy VAGINAL BLEEDING POST OP D&C ON 08/24 Reason for Visit Endometrial thickeni ng on ultrasound PMB (postmenopausal bleeding) History of diverticulitis of colon Chief Complaint abd HALFWAY BLOOD WORK LAB WORK LAB WORK hyster d&c symphion, polypectomy VAGINAL BLEEDING POST OP D&C ON 08/24 ABN Reason for Visit History of diverticu litis of colon Endometrial thickening on ultrasound PMB (postmenopausal bleeding) Chief Complaint HALFWAY BLOOD W ORK LAB WORK LAB WORK hyster d&c symphion, polypectomy VAGINAL BLEEDING POST OP D&C ON 08/24 ABN HALFWAY LAB WORK Reason for Visit History of diverticu litis of colon Endometrial thickening on ultrasound PMB (postmenopausal bleeding) Chief Complaint hyster d&c symphion, polypectomy VAGINAL BLEEDING POST OP D&C ON 08/24 ABN HALFWAY LAB WORK LABWORK HALFWAY LAB WORK Reason for Visit History of diverticu litis of colon Endometrial thickening on ultrasound PMB (postmenopausal bleeding) Chief Complaint ABN HALFWAY LAB WORK LABWORK HALFWAY LAB WORK HALFWAY LABWORK HALFWAY LABWORK NEW SYMPTOMS/CONCERN NEW SYMPTOMS/CONCERN ABNORMAL LABS Chief Complaint ABN HALFWAY LAB WORK LABWORK HALFWAY LAB WORK HALFWAY LABWORK HALFWAY LABWORK NEW SYMPTOMS/CONCERN HALFWAY LABWORK NEW SYMPTOMS/CONCERN ABNORMAL LABS NEW SYMPTOMS/CONCERN HALFWAY LAB WORK Chief Complaint ABN HALFWAY LAB WORK LABWORK HALFWAY LAB WORK LABWORK HALFWAY LABWORK HALFWAY LABWORK NEW SYMPTOMS/CONCERN HALFWAY LABWORK NEW SYMPTOMS/CONCERN HALFWAY LABWORK ABNORMAL LABS NEW SYMPTOMS/CONCERN HALFWAY LAB WORK Chief Complaint ABN HALFWAY LAB WORK LABWORK HALFWAY LAB WORK LABWORK HALFWAY LABWORK HALFWAY LABWORK NEW SYMPTOMS/CONCERN HALFWAY LABWORK NEW SYMPTOMS/CONCERN HALFWAY LABWORK ABNORMAL LABS NEW SYMPTOMS/CONCERN HALFWAY LAB WORK HALFWAY LABWORK Chief Complaint ABN HALFWAY LAB WORK LABWORK HALFWAY LAB WORK LABWORK HALFWAY LABWORK HALFWAY LABWORK NEW SYMPTOMS/CONCERN HALFWAY LABWORK NEW SYMPTOMS/CONCERN HALFWAY LABWORK ABNORMAL LABS NEW SYMPTOMS/CONCERN HALFWAY LAB WORK HALFWAY LABWORK HALFWAY LABWORK Chief Complaint LABWORK HALFWAY LAB WORK LABWORK HALFWAY LABWORK HALFWAY LABWORK NEW SYMPTOMS/CONCERN HALFWAY LABWORK NEW SYMPTOMS/CONCERN HALFWAY LABWORK ABNORMAL LABS NEW SYMPTOMS/CONCERN HALFWAY LAB WORK HALFWAY LABWORK HALFWAY LABWORK HALFWAY LABWORK HALFWAY LAB WORK 2 UNITS [facility] Chief Complaint HALFWAY LAB WOR K LABWORK HALFWAY LABWORK HALFWAY LABWORK NEW SYMPTOMS/CONCERN HALFWAY LABWORK NEW SYMPTOMS/CONCERN HALFWAY LABWORK ABNORMAL LABS NEW SYMPTOMS/CONCERN HALFWAY LAB WORK HALFWAY LABWORK HALFWAY LABWORK HALFWAY LABWORK HALFWAY LAB WORK 2 UNITS [facility] Chief Complaint LABWORK HALFWAY LABWORK HALFWAY LABWORK NEW SYMPTOMS/CONCERN HALFWAY LABWORK NEW SYMPTOMS/CONCERN HALFWAY LABWORK ABNORMAL LABS NEW SYMPTOMS/CONCERN HALFWAY LAB WORK HALFWAY LABWORK HALFWAY LABWORK HALFWAY LABWORK HALFWAY LABWORK HALFWAY LAB WORK 2 UNITS [facility] NEW SYMPTOMS/CONCERNS Chief Complaint LABWORK HALFWAY LABWORK HALFWAY LABWORK NEW SYMPTOMS/CONCERN HALFWAY LABWORK NEW SYMPTOMS/CONCERN HALFWAY LABWORK ABNORMAL LABS NEW SYMPTOMS/CONCERN HALFWAY LAB WORK HALFWAY LABWORK HALFWAY LABWORK HALFWAY LABWORK HALFWAY LABWORK HALFWAY LAB WORK 2 UNITS [facility] HALFWAY LABWORK NEW SYMPTOMS/CONCERNS NEW SYMPTOMS/CONCERN Chief Complaint HALFWAY LABWORK ABNORMAL LABS NEW SYMPTOMS/CONCERN HALFWAY LAB WORK HALFWAY LABWORK HALFWAY LABWORK HALFWAY LABWORK HALFWAY LABWORK HALFWAY LAB WORK 2 UNITS [facility] HALFWAY LABWORK NEW SYMPTOMS/CONCERNS NEW SYMPTOMS/CONCERN LABWORK Chief Complaint HALFWAY LABWORK HALFWAY LAB WORK 2 UNITS [facility] HALFWAY LABWORK NEW SYMPTOMS/CONCERNS NEW SYMPTOMS/CONCERN LABWORK HALFWAY LABWORK new symptoms Chief Complaint HALFWAY LAB WOR K 2 UNITS [facility] HALFWAY LABWORK NEW SYMPTOMS/CONCERNS NEW SYMPTOMS/CONCERN LABWORK HALFWAY LABWORK new symptoms LABWORK Chief Complaint NEW SYMPTOMS/CONCERN S NEW SYMPTOMS/CONCERN LABWORK HALFWAY LABWORK new symptoms LABWORK LABWORK Chief Complaint LABWORK NEW CONCERN HALFWAY LABWORK HALFWAY LAB WORK LABWORK LABWORK Chief Complaint HALFWAY LAB WOR K LABWORK LABWORK HALFWAY LAB WORK LABWORK Chief Complaint LABWORK HALFWAY LAB WORK LABWORK HALFWAY LABWORK Chief Complaint LABWORK NEW CONCERN HALFWAY LABWORK HALFWAY LABWORK HALFWAY LABWORK Chief Complaint NEW CONCERN HALFWAY LABWORK FOLLOW UP NOTE HALFWAY LABWORK NEW CONCERN HALFWAY LABWORK LABWORK Chief Complaint FOLLOW UP NOTE HALFWAY LABWORK NEW CONCERN HALFWAY LABWORK LABWORK LABWORK Chief Complaint HALFWAY LABWORK NEW CONCERN HALFWAY LABWORK LABWORK LABWORK LABWORK Chief Complaint Admit Date HALFWAY LAB WORK March 01 5:00am HALFWAY LAB WORK March 02 5:00am HALFWAY LAB WORK April 05, 2024 5:00am HALFWAY LAB WORK April 23, 2024 4:00am HALFWAY LABWORK May 03, 2024 5:00am NEW CONCERN May 13, 2024 3:32pm LABWORK May 13, 2024 9:45pm LABWORK May 31, 2024 5:0 0am Chief Complaint Admit Date HALFWAY LAB WORK April 05, 2024 5:00am HALFWAY LAB WORK April 23, 2024 4:00am HALFWAY LABWORK May 03, 2024 5:00am NEW CONCERN May 13, 2024 3:32pm LABWORK May 13, 2024 9:45pm LABWORK May 31, 2024 5:0 0am LABWORK June 16, 2024 5:00 am LABWORK July 05, 2024 5:0 0am NEW CONCERN July 06, 2024 2:2 6pm Chief Complaint Admit Date HALFWAY LAB WORK April 05, 2024 5:00am HALFWAY LAB WORK April 23, 2024 4:00am HALFWAY LABWORK May 03, 2024 5:00am NEW CONCERN May 13, 2024 3:32pm LABWORK May 13, 2024 9:45pm LABWORK May 31, 2024 5:0 0am LABWORK June 16, 2024 5:00 am LABWORK July 05, 2024 5:0 0am NEW CONCERN July 06, 2024 2:2 6pm LABWORK July 07, 2024 5:0 0am Chief Complaint Admit Date HALFWAY LAB WORK April 05, 2024 5:00am HALFWAY LAB WORK April 23, 2024 4:00am HALFWAY LABWORK May 03, 2024 5:00am NEW CONCERN May 13, 2024 3:32pm LABWORK May 13, 2024 9:45pm LABWORK May 31, 2024 5:0 0am LABWORK June 16, 2024 5:00 am LABWORK July 05, 2024 5:0 0am NEW CONCERN July 06, 2024 2:2 6pm LABWORK July 07, 2024 5:0 0am LABWORK July 08, 2024 12: 00pm Chief Complaint Admit Date HALFWAY LAB WORK April 23, 2024 4:00am HALFWAY LABWORK May 03, 2024 5:00am NEW CONCERN May 13, 2024 3:32pm LABWORK May 13, 2024 9:45pm LABWORK May 31, 2024 5:0 0am LABWORK June 16, 2024 5:00 am LABWORK July 05, 2024 5:0 0am NEW CONCERN July 06, 2024 2:2 6pm LABWORK July 07, 2024 5:0 0am LABWORK July 08, 2024 12: 00pm HALFWAY LAB WORK August 02, 2024 4:0 0am UTI, DIARRHEA, BLADDER FISTULA August 06, 2024 2:19pm Chief Complaint Admit Date HALFWAY LAB WORK April 23, 2024 4:00am HALFWAY LABWORK May 03, 2024 5:00am NEW CONCERN May 13, 2024 3:32pm LABWORK May 13, 2024 9:45pm LABWORK May 31, 2024 5:0 0am LABWORK June 16, 2024 5:00 am LABWORK July 05, 2024 5:0 0am NEW CONCERN July 06, 2024 2:2 6pm LABWORK July 07, 2024 5:0 0am LABWORK July 08, 2024 12: 00pm HALFWAY LAB WORK August 02, 2024 4:0 0am UTI, DIARRHEA, BLADDER FISTULA August 06, 2024 2:19pm LEFT ULNA August 13, 2024 2:06p m Room 4 August 13, 2024 2:32p m Chief Complaint Admit Date HALFWAY LAB WORK April 23, 2024 4:00am HALFWAY LABWORK May 03, 2024 5:00am NEW CONCERN May 13, 2024 3:32pm LABWORK May 13, 2024 9:45pm LABWORK May 31, 2024 5:0 0am LABWORK June 16, 2024 5:00 am LABWORK July 05, 2024 5:0 0am NEW CONCERN July 06, 2024 2:2 6pm LABWORK July 07, 2024 5:0 0am LABWORK July 08, 2024 12: 00pm HALFWAY LAB WORK August 02, 2024 4:0 0am [...] 0am LABWORK July 08, 2024 12: 00pm HALFWAY LAB WORK August 02, 2024 4:0 0am [...] 0am LABWORK July 08, 2024 12: 00pm HALFWAY LAB WORK August 02, 2024 4:0 0am [...] 2:2 4pm Reason for Visit Admit Date Fall [...] 0am LABWORK July 08, 2024 12: 00pm HALFWAY LAB WORK August 02, 2024 4:0 0am [...] 2:2 4pm Reason for Visit Admit Date Fall August 13, 2024 2:06p m Fx distal ulna-closed August 13, 2024 2:0 6pm fallAugust 18, 2024 2:33p m Fx distal ulna-closed August 18, 2024 2:3 3pm fallSeptember 03, 2024 1:55 pm Fx distal ulna-closed September 03, 2024 1: 55pm Change in bowel habits September 07, 2024 2 :24pm Chief Complaint Admit Date LABWORK May 31, 2024 5:0 0am LABWORK June 16, 2024 5:00 am LABWORK July 05, 2024 5:0 0am NEW CONCERN July 06, 2024 2:2 6pm LABWORK July 07, 2024 5:0 0am LABWORK July 08, 2024 12: 00pm HALFWAY LAB WORK August 02, 2024 4:0 0am [...] 0am LABWORK July 08, 2024 12: 00pm HALFWAY LAB WORK August 02, 2024 4:0 0am UTI, DIARRHEA, BLADDER FISTULA May 23rd, 2025 2:19pm NEW CONCERN August 12, 2024 12:58 [...] 0am LABWORK July 08, 2024 12: 00pm HALFWAY LAB WORK August 02, 2024 4:0 0am [...] 0am LABWORK July 08, 2024 12: 00pm HALFWAY LAB WORK August 02, 2024 4:0 0am [...] 0am LABWORK July 08, 2024 12: 00pm HALFWAY LAB WORK August 02, 2024 4:0 0am [...] 2:0 4pm Reason for Visit Admit Date fallAugust [...] 0am LABWORK July 08, 2024 12: 00pm HALFWAY LAB WORK August 02, 2024 4:0 0am [...] 2024 2:0 4pm Chief Complaint Admit Date HALFWAY LAB WORK August 02, 2024 4:0 0am [...] Room 4 October 22, 2024 2:0 4pm Annual H&P exam November 02, 2024 3: 26pm Chief Complaint Admit Date HALFWAY LAB WORK August 02, 2024 4:0 0am [...] Room 4 October 22, 2024 2:0 4pm Annual H&P exam November 02, 2024 3: 26pm Colitis November 22, 2024 10:58am Health Concerns Infection Onset Date Last Indicated [...] incontinence Procedures CONSULT TO URO GYNECOLOGY OFFICE/OUTPATIENT [facility] 60-74 MINUTES Jayde Hebert MD [address] [place] [address] Referral ID Status Reason Start Date Expiration Date Visits Requested Visits Authorized [id number] Authorized PCP Requested Referral Auto-Generate d Referral 08/30/2021 11/28/2021 1 1 Specialty Diagnoses / Procedures Referred By Contac t Referred To Contact Infectious Diseases Diagnoses Recurrent UTI History of ESBL E. coli infection Procedures CONSULT TO INFECTIOUS DISEASES OFFICE/OUTPATIENT [facility] 60-74 MINUTES Basilia Hernández MD [address] [address] Referral ID Status Reason Start Date Expiration Date Visits Requested Visits Authorized [id number] Authorized PCP Requested Referral 09/26/2021 09/26/2022 1 1 Specialty Diagnoses / Procedures Referred By Contac t Referred To Contact CT IMAGING Diagnoses Iron deficiency anemia due to chronic blood loss Bilateral hip pain Generalized abdominal pain Abdominal bloating Personal history of breast cancer Occult blood in stools Procedures CT CHEST W IVCON DIAGNOSTIC COMPUTED TOMOGRAPHY THORAX W/CONTRAST Cassidy Arreola APRN.[employer] [address] [place] [address] [place] [address] Referral ID Status Reason Start Date Expiration Date Visits Requested Visits Authorized [id number] Authorized Auto-Generat ed Referral 03/25/2025 1 1 Specialty Diagnoses / Procedures Referred By Contac t Referred To Contact CT IMAGING Diagnoses Iron deficiency anemia due to chronic blood loss Bilateral hip pain Generalized abdominal pain Abdominal bloating Personal history of breast cancer Occult blood in stools Procedures CT ABD/PEL W IVCON CT ABD & PELVIS W/CONTRAST Cassidy Arreola APRN.[employer] [address] [place] [address] [place] [address] Referral ID Status Reason Start Date Expiration Date Visits Requested Visits Authorized [id number] Authorized Auto-Generat ed Referral 4 03/25/2025 1 1 Specialty Diagnoses / Procedures Referred By Michael mcgowan Referred To Contact XR IMAGING Diagnoses Bilateral hip pain Procedures XR HIP BILATERAL 5V PEL/AP/LAT EACH HIP RADEX HIPS BILATERAL WITH PELVIS MINIMUM 5 VIEWS Cassidy Arreola APRN.[employer] [address] [place] [address] [place] [address] Referral ID Status Reason Start Date Expiration Date Visits Requested Visits Authorized [id number] New Request Auto-Generat ed Referral 4 03/25/2025 [...] section and content) DATE CREATED AUTHOR 10/21/2019 [facility] DATE CREATED AUTHOR AUTHOR'S ORGANIZ ATION 08/28/2021 [facility] DATE CREATED AUTHOR AUTHOR'S ORGANIZ ATION 01/07/2022 [facility] DATE CREATED AUTHOR AUTHOR'S ORGANIZ ATION 11/24/2024 [facility] DATE CREATED AUTHOR AUTHOR'S ORGANIZ ATION 11/25/2024 [facility] Source Comments (unrecognize d section and content) In the event this informatio n is protected by the Federal Confidentiality of Alcohol and Drug Abuse Patient Records regulations: The Federal rules restrict any use of the information to criminally investigate or prosecute any alcohol or drug abuse patient.[facility] the event this information is protected by the Federal Confidentiality of Alcohol and Drug Abuse Patient Records regulations: The Federal rules restrict any use of the information to criminally investigate or prosecute any alcohol or drug abuse patient.[facility] the event this information is protected by the Federal Confidentiality of Alcohol and Drug Abuse Patient Records regulations: The Federal rules restrict any use of the information to criminally investigate or prosecute any alcohol or drug abuse patient.[facility] the event this information is protected by the Federal Confidentiality of Alcohol and Drug Abuse Patient Records regulations: The Federal rules restrict any use of the information to criminally investigate or prosecute any alcohol or drug abuse patient.[facility]In the event this information is protected by the Federal Confidentiality of Alcohol and Drug Abuse Patient Records regulations: The Federal rules restrict any use of the information to criminally investigate or prosecute any alcohol or drug abuse patient.[facility] the event this information is protected by the Federal Confidentiality of Alcohol and Drug Abuse Patient Records regulations: The Federal rules restrict any use of the information to criminally investigate or prosecute any alcohol or drug abuse patient.[facility] the event this information is protected by the Federal Confidentiality of Alcohol and Drug Abuse Patient Records regulations: The Federal rules restrict any use of the information to criminally investigate or prosecute any alcohol or drug abuse patient.[facility]In the event this information is protected by the Federal Confidentiality of Alcohol and Drug Abuse Patient Records regulations: The Federal rules restrict any use of the information to criminally investigate or prosecute any alcohol or drug abuse patient.[facility]In the event this information is protected by the Federal Confidentiality of Alcohol and Drug Abuse Patient Records regulations: The Federal rules restrict any use of the information to criminally investigate or prosecute any alcohol or drug abuse patient.[facility]In the event this information is protected by the Federal Confidentiality of Alcohol and Drug Abuse Patient Records regulations: The Federal rules restrict any use of the information to criminally investigate or prosecute any alcohol or drug abuse patient.[facility]In the event this information is protected by the Federal Confidentiality of Alcohol and Drug Abuse Patient Records regulations: The Federal rules restrict any use of the information to criminally investigate or prosecute any alcohol or drug abuse patient.[facility]In the event this information is protected by the Federal Confidentiality of Alcohol and Drug Abuse Patient Records regulations: The Federal rules restrict any use of the information to criminally investigate or prosecute any alcohol or drug abuse patient.[facility]In the event this information is protected by the Federal Confidentiality of Alcohol and Drug Abuse Patient Records regulations: The Federal rules restrict any use of the information to criminally investigate or prosecute any alcohol or drug abuse patient.[facility]In the event this information is protected by the Federal Confidentiality of Alcohol and Drug Abuse Patient Records regulations: The Federal rules restrict any use of the information to criminally investigate or prosecute any alcohol or drug abuse patient.[facility]In the event this information is protected by the Federal Confidentiality of Alcohol and Drug Abuse Patient Records regulations: The Federal rules restrict any use of the information to criminally investigate or prosecute any alcohol or drug abuse patient.[facility] HospitalIn the event this information is protected by the Federal Confidentiality of Alcohol and Drug Abuse Patient Records regulations: The Federal rules restrict any use of the information to criminally investigate or prosecute any alcohol or drug abuse patient.[facility]In the event this information is protected by the Federal Confidentiality of Alcohol and Drug Abuse Patient Records regulations: The Federal rules restrict any use of the information to criminally investigate or prosecute any alcohol or drug abuse patient.[facility]In the event this information is protected by the Federal Confidentiality of Alcohol and Drug Abuse Patient Records regulations: The Federal rules restrict any use of the information to criminally investigate or prosecute any alcohol or drug abuse patient.[facility]In the event this information is protected by the Federal Confidentiality of Alcohol and Drug Abuse Patient Records regulations: The Federal rules restrict any use of the information to criminally investigate or prosecute any alcohol or drug abuse patient.[facility]In the event this information is protected by the Federal Confidentiality of Alcohol and Drug Abuse Patient Records regulations: The Federal rules restrict any use of the information to criminally investigate or prosecute any alcohol or drug abuse patient.[facility] HospitalIn the event this information is protected by the Federal Confidentiality of Alcohol and Drug Abuse Patient Records regulations: The Federal rules restrict any use of the information to criminally investigate or prosecute any alcohol or drug abuse patient.[facility] HospitalIn the event this information is protected by the Federal Confidentiality of Alcohol and Drug Abuse Patient Records regulations: The Federal rules restrict any use of the information to criminally investigate or prosecute any alcohol or drug abuse patient.[facility] HospitalIn the event this information is protected by the Federal Confidentiality of Alcohol and Drug Abuse Patient Records regulations: The Federal rules restrict any use of the information to criminally investigate or prosecute any alcohol or drug abuse patient.[facility]In the event this information is protected by the Federal Confidentiality of Alcohol and Drug Abuse Patient Records regulations: The Federal rules restrict any use of the information to criminally investigate or prosecute any alcohol or drug abuse patient.[facility]In the event this information is protected by the Federal Confidentiality of Alcohol and Drug Abuse Patient Records regulations: The Federal rules restrict any use of the information to criminally investigate or prosecute any alcohol or drug abuse patient.[facility]In the event this information is protected by the Federal Confidentiality of Alcohol and Drug Abuse Patient Records regulations: The Federal rules restrict any use of the information to criminally investigate or prosecute any alcohol or drug abuse patient.[facility]In the event this information is protected by the Federal Confidentiality of Alcohol and Drug Abuse Patient Records regulations: The Federal rules restrict any use of the information to criminally investigate or prosecute any alcohol or drug abuse patient.[facility]In the event this information is protected by the Federal Confidentiality of Alcohol and Drug Abuse Patient Records regulations: The Federal rules restrict any use of the information to criminally investigate or prosecute any alcohol or drug abuse patient.[facility]In the event this information is protected by the Federal Confidentiality of Alcohol and Drug Abuse Patient Records regulations: The Federal rules restrict any use of the information to criminally investigate or prosecute any alcohol or drug abuse patient.[facility] HospitalIn the event this information is protected by the Federal Confidentiality of Alcohol and Drug Abuse Patient Records regulations: The Federal rules restrict any use of the information to criminally investigate or prosecute any alcohol or drug abuse patient.[facility] HospitalIn the event this information is protected by the Federal Confidentiality of Alcohol and Drug Abuse Patient Records regulations: The Federal rules restrict any use of the information to criminally investigate or prosecute any alcohol or drug abuse patient.[facility] HospitalIn the event this information is protected by the Federal Confidentiality of Alcohol and Drug Abuse Patient Records regulations: The Federal rules restrict any use of the information to criminally investigate or prosecute any alcohol or drug abuse patient.[facility] HospitalIn the event this information is protected by the Federal Confidentiality of Alcohol and Drug Abuse Patient Records regulations: The Federal rules restrict any use of the information to criminally investigate or prosecute any alcohol or drug abuse patient.[facility] HospitalIn the event this information is protected by the Federal Confidentiality of Alcohol and Drug Abuse Patient Records regulations: The Federal rules restrict any use of the information to criminally investigate or prosecute any alcohol or drug abuse patient.[facility]In the event this information is protected by the Federal Confidentiality of Alcohol and Drug Abuse Patient Records regulations: The Federal rules restrict any use of the information to criminally investigate or prosecute any alcohol or drug abuse patient.[facility] HospitalIn the event this information is protected by the Federal Confidentiality of Alcohol and Drug Abuse Patient Records regulations: The Federal rules restrict any use of the information to criminally investigate or prosecute any alcohol or drug abuse patient.[facility] HospitalIn the event this information is protected by the Federal Confidentiality of Alcohol and Drug Abuse Patient Records regulations: The Federal rules restrict any use of the information to criminally investigate or prosecute any alcohol or drug abuse patient.[facility]In the event this information is protected by the Federal Confidentiality of Alcohol and Drug Abuse Patient Records regulations: The Federal rules restrict any use of the information to criminally investigate or prosecute any alcohol or drug abuse patient.[facility] HospitalIn the event this information is protected by the Federal Confidentiality of Alcohol and Drug Abuse Patient Records regulations: The Federal rules restrict any use of the information to criminally investigate or prosecute any alcohol or drug abuse patient.[facility] HospitalIn the event this information is protected by the Federal Confidentiality of Alcohol and Drug Abuse Patient Records regulations: The Federal rules restrict any use of the information to criminally investigate or prosecute any alcohol or drug abuse patient.[facility] HospitalIn the event this information is protected by the Federal Confidentiality of Alcohol and Drug Abuse Patient Records regulations: The Federal rules restrict any use of the information to criminally investigate or prosecute any alcohol or drug abuse patient.[facility] HospitalIn the event this information is protected by the Federal Confidentiality of Alcohol and Drug Abuse Patient Records regulations: The Federal rules restrict any use of the information to criminally investigate or prosecute any alcohol or drug abuse patient.[facility] HospitalIn the event this information is protected by the Federal Confidentiality of Alcohol and Drug Abuse Patient Records regulations: The Federal rules restrict any use of the information to criminally investigate or prosecute any alcohol or drug abuse patient.[facility] HospitalIn the event this information is protected by the Federal Confidentiality of Alcohol and Drug Abuse Patient Records regulations: The Federal rules restrict any use of the information to criminally investigate or prosecute any alcohol or drug abuse patient.[facility] HospitalIn the event this information is protected by the Federal Confidentiality of Alcohol and Drug Abuse Patient Records regulations: The Federal rules restrict any use of the information to criminally investigate or prosecute any alcohol or drug abuse patient.[facility] HospitalIn the event this information is protected by the Federal Confidentiality of Alcohol and Drug Abuse Patient Records regulations: The Federal rules restrict any use of the information to criminally investigate or prosecute any alcohol or drug abuse patient.[facility] HospitalIn the event this information is protected by the Federal Confidentiality of Alcohol and Drug Abuse Patient Records regulations: The Federal rules restrict any use of the information to criminally investigate or prosecute any alcohol or drug abuse patient.[facility] HospitalIn the event this information is protected by the Federal Confidentiality of Alcohol and Drug Abuse Patient Records regulations: The Federal rules restrict any use of the information to criminally investigate or prosecute any alcohol or drug abuse patient.[facility] HospitalIn the event this information is protected by the Federal Confidentiality of Alcohol and Drug Abuse Patient Records regulations: The Federal rules restrict any use of the information to criminally investigate or prosecute any alcohol or drug abuse patient.[facility] HospitalIn the event this information is protected by the Federal Confidentiality of Alcohol and Drug Abuse Patient Records regulations: The Federal rules restrict any use of the information to criminally investigate or prosecute any alcohol or drug abuse patient.[facility] HospitalIn the event this information is protected by the Federal Confidentiality of Alcohol and Drug Abuse Patient Records regulations: The Federal rules restrict any use of the information to criminally investigate or prosecute any alcohol or drug abuse patient.[facility] HospitalIn the event this information is protected by the Federal Confidentiality of Alcohol and Drug Abuse Patient Records regulations: The Federal rules restrict any use of the information to criminally investigate or prosecute any alcohol or drug abuse patient.[facility] the event this information is protected by the Federal Confidentiality of Alcohol and Drug Abuse Patient Records regulations: The Federal rules restrict any use of the information to criminally investigate or prosecute any alcohol or drug abuse patient.[facility] HospitalIn the event this information is protected by the Federal Confidentiality of Alcohol and Drug Abuse Patient Records regulations: The Federal rules restrict any use of the information to criminally investigate or prosecute any alcohol or drug abuse patient.[facility] HospitalIn the event this information is protected by the Federal Confidentiality of Alcohol and Drug Abuse Patient Records regulations: The Federal rules restrict any use of the information to criminally investigate or prosecute any alcohol or drug abuse patient.[facility]In the event this information is protected by the Federal Confidentiality of Alcohol and Drug Abuse Patient Records regulations: The Federal rules restrict any use of the information to criminally investigate or prosecute any alcohol or drug abuse patient.[facility]In the event this information is protected by the Federal Confidentiality of Alcohol and Drug Abuse Patient Records regulations: The Federal rules restrict any use of the information to criminally investigate or prosecute any alcohol or drug abuse patient.[facility] HospitalIn the event this information is protected by the Federal Confidentiality of Alcohol and Drug Abuse Patient Records regulations: The Federal rules restrict any use of the information to criminally investigate or prosecute any alcohol or drug abuse patient.[facility] HospitalIn the event this information is protected by the Federal Confidentiality of Alcohol and Drug Abuse Patient Records regulations: The Federal rules restrict any use of the information to criminally investigate or prosecute any alcohol or drug abuse patient.[facility] HospitalIn the event this information is protected by the Federal Confidentiality of Alcohol and Drug Abuse Patient Records regulations: The Federal rules restrict any use of the information to criminally investigate or prosecute any alcohol or drug abuse patient.[facility] HospitalIn the event this information is protected by the Federal Confidentiality of Alcohol and Drug Abuse Patient Records regulations: The Federal rules restrict any use of the information to criminally investigate or prosecute any alcohol or drug abuse patient.[facility] HospitalIn the event this information is protected by the Federal Confidentiality of Alcohol and Drug Abuse Patient Records regulations: The Federal rules restrict any use of the information to criminally investigate or prosecute any alcohol or drug abuse patient.[facility] HospitalIn the event this information is protected by the Federal Confidentiality of Alcohol and Drug Abuse Patient Records regulations: The Federal rules restrict any use of the information to criminally investigate or prosecute any alcohol or drug abuse patient.[facility] HospitalIn the event this information is protected by the Federal Confidentiality of Alcohol and Drug Abuse Patient Records regulations: The Federal rules restrict any use of the information to criminally investigate or prosecute any alcohol or drug abuse patient.[facility] HospitalIn the event this information is protected by the Federal Confidentiality of Alcohol and Drug Abuse Patient Records regulations: The Federal rules restrict any use of the information to criminally investigate or prosecute any alcohol or drug abuse patient.[facility] HospitalIn the event this information is protected by the Federal Confidentiality of Alcohol and Drug Abuse Patient Records regulations: The Federal rules restrict any use of the information to criminally investigate or prosecute any alcohol or drug abuse patient.[facility] HospitalIn the event this information is protected by the Federal Confidentiality of Alcohol and Drug Abuse Patient Records regulations: The Federal rules restrict any use of the information to criminally investigate or prosecute any alcohol or drug abuse patient.[facility] HospitalIn the event this information is protected by the Federal Confidentiality of Alcohol and Drug Abuse Patient Records regulations: The Federal rules restrict any use of the information to criminally investigate or prosecute any alcohol or drug abuse patient.[facility] HospitalIn the event this information is protected by the Federal Confidentiality of Alcohol and Drug Abuse Patient Records regulations: The Federal rules restrict any use of the information to criminally investigate or prosecute any alcohol or drug abuse patient.[facility] HospitalIn the event this information is protected by the Federal Confidentiality of Alcohol and Drug Abuse Patient Records regulations: The Federal rules restrict any use of the information to criminally investigate or prosecute any alcohol or drug abuse patient.[facility] HospitalIn the event this information is protected by the Federal Confidentiality of Alcohol and Drug Abuse Patient Records regulations: The Federal rules restrict any use of the information to criminally investigate or prosecute any alcohol or drug abuse patient.[facility] HospitalIn the event this information is protected by the Federal Confidentiality of Alcohol and Drug Abuse Patient Records regulations: The Federal rules restrict any use of the information to criminally investigate or prosecute any alcohol or drug abuse patient.[facility] HospitalIn the event this information is protected by the Federal Confidentiality of Alcohol and Drug Abuse Patient Records regulations: The Federal rules restrict any use of the information to criminally investigate or prosecute any alcohol or drug abuse patient.[facility] HospitalIn the event this information is protected by the Federal Confidentiality of Alcohol and Drug Abuse Patient Records regulations: The Federal rules restrict any use of the information to criminally investigate or prosecute any alcohol or drug abuse patient.[facility] HospitalIn the event this information is protected by the Federal Confidentiality of Alcohol and Drug Abuse Patient Records regulations: The Federal rules restrict any use of the information to criminally investigate or prosecute any alcohol or drug abuse patient.[facility] HospitalIn the event this information is protected by the Federal Confidentiality of Alcohol and Drug Abuse Patient Records regulations: The Federal rules restrict any use of the information to criminally investigate or prosecute any alcohol or drug abuse patient.[facility] HospitalIn the event this information is protected by the Federal Confidentiality of Alcohol and Drug Abuse Patient Records regulations: The Federal rules restrict any use of the information to criminally investigate or prosecute any alcohol or drug abuse patient.[facility] HospitalIn the event this information is protected by the Federal Confidentiality of Alcohol and Drug Abuse Patient Records regulations: The Federal rules restrict any use of the information to criminally investigate or prosecute any alcohol or drug abuse patient.[facility] HospitalIn the event this information is protected by the Federal Confidentiality of Alcohol and Drug Abuse Patient Records regulations: The Federal rules restrict any use of the information to criminally investigate or prosecute any alcohol or drug abuse patient.[facility] HospitalIn the event this information is protected by the Federal Confidentiality of Alcohol and Drug Abuse Patient Records regulations: The Federal rules restrict any use of the information to criminally investigate or prosecute any alcohol or drug abuse patient.[facility] HospitalIn the event this information is protected by the Federal Confidentiality of Alcohol and Drug Abuse Patient Records regulations: The Federal rules restrict any use of the information to criminally investigate or prosecute any alcohol or drug abuse patient.[facility] HospitalIn the event this information is protected by the Federal Confidentiality of Alcohol and Drug Abuse Patient Records regulations: The Federal rules restrict any use of the information to criminally investigate or prosecute any alcohol or drug abuse patient.[facility] HospitalIn the event this information is protected by the Federal Confidentiality of Alcohol and Drug Abuse Patient Records regulations: The Federal rules restrict any use of the information to criminally investigate or prosecute any alcohol or drug abuse patient.[facility] HospitalIn the event this information is protected by the Federal Confidentiality of Alcohol and Drug Abuse Patient Records regulations: The Federal rules restrict any use of the information to criminally investigate or prosecute any alcohol or drug abuse patient.[facility] HospitalIn the event this information is protected by the Federal Confidentiality of Alcohol and Drug Abuse Patient Records regulations: The Federal rules restrict any use of the information to criminally investigate or prosecute any alcohol or drug abuse patient.[facility] HospitalIn the event this information is protected by the Federal Confidentiality of Alcohol and Drug Abuse Patient Records regulations: The Federal rules restrict any use of the information to criminally investigate or prosecute any alcohol or drug abuse patient.[facility] HospitalIn the event this information is protected by the Federal Confidentiality of Alcohol and Drug Abuse Patient Records regulations: The Federal rules restrict any use of the information to criminally investigate or prosecute any alcohol or drug abuse patient.[facility] HospitalIn the event this information is protected by the Federal Confidentiality of Alcohol and Drug Abuse Patient Records regulations: The Federal rules restrict any use of the information to criminally investigate or prosecute any alcohol or drug abuse patient.[facility] HospitalIn the event this information is protected by the Federal Confidentiality of Alcohol and Drug Abuse Patient Records regulations: The Federal rules restrict any use of the information to criminally investigate or prosecute any alcohol or drug abuse patient.[facility] HospitalIn the event this information is protected by the Federal Confidentiality of Alcohol and Drug Abuse Patient Records regulations: The Federal rules restrict any use of the information to criminally investigate or prosecute any alcohol or drug abuse patient.[facility] HospitalIn the event this information is protected by the Federal Confidentiality of Alcohol and Drug Abuse Patient Records regulations: The Federal rules restrict any use of the information to criminally investigate or prosecute any alcohol or drug abuse patient.[facility] HospitalIn the event this information is protected by the Federal Confidentiality of Alcohol and Drug Abuse Patient Records regulations: The Federal rules restrict any use of the information to criminally investigate or prosecute any alcohol or drug abuse patient.[facility] HospitalIn the event this information is protected by the Federal Confidentiality of Alcohol and Drug Abuse Patient Records regulations: The Federal rules restrict any use of the information to criminally investigate or prosecute any alcohol or drug abuse patient.[facility] HospitalIn the event this information is protected by the Federal Confidentiality of Alcohol and Drug Abuse Patient Records regulations: The Federal rules restrict any use of the information to criminally investigate or prosecute any alcohol or drug abuse patient.[facility] HospitalIn the event this information is protected by the Federal Confidentiality of Alcohol and Drug Abuse Patient Records regulations: The Federal rules restrict any use of the information to criminally investigate or prosecute any alcohol or drug abuse patient.[facility] HospitalIn the event this information is protected by the Federal Confidentiality of Alcohol and Drug Abuse Patient Records regulations: The Federal rules restrict any use of the information to criminally investigate or prosecute any alcohol or drug abuse patient.[facility] HospitalIn the event this information is protected by the Federal Confidentiality of Alcohol and Drug Abuse Patient Records regulations: The Federal rules restrict any use of the information to criminally investigate or prosecute any alcohol or drug abuse patient.[facility] HospitalIn the event this information is protected by the Federal Confidentiality of Alcohol and Drug Abuse Patient Records regulations: The Federal rules restrict any use of the information to criminally investigate or prosecute any alcohol or drug abuse patient.[facility] HospitalIn the event this information is protected by the Federal Confidentiality of Alcohol and Drug Abuse Patient Records regulations: The Federal rules restrict any use of the information to criminally investigate or prosecute any alcohol or drug abuse patient.[facility] HospitalIn the event this information is protected by the Federal Confidentiality of Alcohol and Drug Abuse Patient Records regulations: The Federal rules restrict any use of the information to criminally investigate or prosecute any alcohol or drug abuse patient.[facility] HospitalIn the event this information is protected by the Federal Confidentiality of Alcohol and Drug Abuse Patient Records regulations: The Federal rules restrict any use of the information to criminally investigate or prosecute any alcohol or drug abuse patient.[facility] HospitalIn the event this information is protected by the Federal Confidentiality of Alcohol and Drug Abuse Patient Records regulations: The Federal rules restrict any use of the information to criminally investigate or prosecute any alcohol or drug abuse patient.[facility] the event this information is protected by the Federal Confidentiality of Alcohol and Drug Abuse Patient Records regulations: The Federal rules restrict any use of the information to criminally investigate or prosecute any alcohol or drug abuse patient.[facility] HospitalIn the event this information is protected by the Federal Confidentiality of Alcohol and Drug Abuse Patient Records regulations: The Federal rules restrict any use of the information to criminally investigate or prosecute any alcohol or drug abuse patient.[facility] HospitalIn the event this information is protected by the Federal Confidentiality of Alcohol and Drug Abuse Patient Records regulations: The Federal rules restrict any use of the information to criminally investigate or prosecute any alcohol or drug abuse patient.[facility]In the event this information is protected by the Federal Confidentiality of Alcohol and Drug Abuse Patient Records regulations: The Federal rules restrict any use of the information to criminally investigate or prosecute any alcohol or drug abuse patient.[facility] HospitalIn the event this information is protected by the Federal Confidentiality of Alcohol and Drug Abuse Patient Records regulations: The Federal rules restrict any use of the information to criminally investigate or prosecute any alcohol or drug abuse patient.[facility] HospitalIn the event this information is protected by the Federal Confidentiality of Alcohol and Drug Abuse Patient Records regulations: The Federal rules restrict any use of the information to criminally investigate or prosecute any alcohol or drug abuse patient.[facility] HospitalIn the event this information is protected by the Federal Confidentiality of Alcohol and Drug Abuse Patient Records regulations: The Federal rules restrict any use of the information to criminally investigate or prosecute any alcohol or drug abuse patient.[facility] HospitalIn the event this information is protected by the Federal Confidentiality of Alcohol and Drug Abuse Patient Records regulations: The Federal rules restrict any use of the information to criminally investigate or prosecute any alcohol or drug abuse patient.[facility] HospitalIn the event this information is protected by the Federal Confidentiality of Alcohol and Drug Abuse Patient Records regulations: The Federal rules restrict any use of the information to criminally investigate or prosecute any alcohol or drug abuse patient.[facility] HospitalIn the event this information is protected by the Federal Confidentiality of Alcohol and Drug Abuse Patient Records regulations: The Federal rules restrict any use of the information to criminally investigate or prosecute any alcohol or drug abuse patient.[facility] HospitalIn the event this information is protected by the Federal Confidentiality of Alcohol and Drug Abuse Patient Records regulations: The Federal rules restrict any use of the information to criminally investigate or prosecute any alcohol or drug abuse patient.[facility] HospitalIn the event this information is protected by the Federal Confidentiality of Alcohol and Drug Abuse Patient Records regulations: The Federal rules restrict any use of the information to criminally investigate or prosecute any alcohol or drug abuse patient.[facility] HospitalIn the event this information is protected by the Federal Confidentiality of Alcohol and Drug Abuse Patient Records regulations: The Federal rules restrict any use of the information to criminally investigate or prosecute any alcohol or drug abuse patient.[facility] HospitalIn the event this information is protected by the Federal Confidentiality of Alcohol and Drug Abuse Patient Records regulations: The Federal rules restrict any use of the information to criminally investigate or prosecute any alcohol or drug abuse patient.[facility] HospitalIn the event this information is protected by the Federal Confidentiality of Alcohol and Drug Abuse Patient Records regulations: The Federal rules restrict any use of the information to criminally investigate or prosecute any alcohol or drug abuse patient.[facility] HospitalIn the event this information is protected by the Federal Confidentiality of Alcohol and Drug Abuse Patient Records regulations: The Federal rules restrict any use of the information to criminally investigate or prosecute any alcohol or drug abuse patient.[facility] HospitalIn the event this information is protected by the Federal Confidentiality of Alcohol and Drug Abuse Patient Records regulations: The Federal rules restrict any use of the information to criminally investigate or prosecute any alcohol or drug abuse patient.[facility] HospitalIn the event this information is protected by the Federal Confidentiality of Alcohol and Drug Abuse Patient Records regulations: The Federal rules restrict any use of the information to criminally investigate or prosecute any alcohol or drug abuse patient.[facility] HospitalIn the event this information is protected by the Federal Confidentiality of Alcohol and Drug Abuse Patient Records regulations: The Federal rules restrict any use of the information to criminally investigate or prosecute any alcohol or drug abuse patient.[facility] HospitalIn the event this information is protected by the Federal Confidentiality of Alcohol and Drug Abuse Patient Records regulations: The Federal rules restrict any use of the information to criminally investigate or prosecute any alcohol or drug abuse patient.[facility] HospitalIn the event this information is protected by the Federal Confidentiality of Alcohol and Drug Abuse Patient Records regulations: The Federal rules restrict any use of the information to criminally investigate or prosecute any alcohol or drug abuse patient.[facility] HospitalIn the event this information is protected by the Federal Confidentiality of Alcohol and Drug Abuse Patient Records regulations: The Federal rules restrict any use of the information to criminally investigate or prosecute any alcohol or drug abuse patient.[facility] HospitalIn the event this information is protected by the Federal Confidentiality of Alcohol and Drug Abuse Patient Records regulations: The Federal rules restrict any use of the information to criminally investigate or prosecute any alcohol or drug abuse patient.[facility] HospitalIn the event this information is protected by the Federal Confidentiality of Alcohol and Drug Abuse Patient Records regulations: The Federal rules restrict any use of the information to criminally investigate or prosecute any alcohol or drug abuse patient.[facility] HospitalIn the event this information is protected by the Federal Confidentiality of Alcohol and Drug Abuse Patient Records regulations: The Federal rules restrict any use of the information to criminally investigate or prosecute any alcohol or drug abuse patient.[facility] HospitalIn the event this information is protected by the Federal Confidentiality of Alcohol and Drug Abuse Patient Records regulations: The Federal rules restrict any use of the information to criminally investigate or prosecute any alcohol or drug abuse patient.[facility] HospitalIn the event this information is protected by the Federal Confidentiality of Alcohol and Drug Abuse Patient Records regulations: The Federal rules restrict any use of the information to criminally investigate or prosecute any alcohol or drug abuse patient.[facility] HospitalIn the event this information is protected by the Federal Confidentiality of Alcohol and Drug Abuse Patient Records regulations: The Federal rules restrict any use of the information to criminally investigate or prosecute any alcohol or drug abuse patient.[facility]In the event this information is protected by the Federal Confidentiality of Alcohol and Drug Abuse Patient Records regulations: The Federal rules restrict any use of the information to criminally investigate or prosecute any alcohol or drug abuse patient.[facility] HospitalIn the event this information is protected by the Federal Confidentiality of Alcohol and Drug Abuse Patient Records regulations: The Federal rules restrict any use of the information to criminally investigate or prosecute any alcohol or drug abuse patient.[facility] HospitalIn the event this information is protected by the Federal Confidentiality of Alcohol and Drug Abuse Patient Records regulations: The Federal rules restrict any use of the information to criminally investigate or prosecute any alcohol or drug abuse patient.[facility] HospitalIn the event this information is protected by the Federal Confidentiality of Alcohol and Drug Abuse Patient Records regulations: The Federal rules restrict any use of the information to criminally investigate or prosecute any alcohol or drug abuse patient.[facility] HospitalIn the event this information is protected by the Federal Confidentiality of Alcohol and Drug Abuse Patient Records regulations: The Federal rules restrict any use of the information to criminally investigate or prosecute any alcohol or drug abuse patient.[facility]In the event this information is protected by the Federal Confidentiality of Alcohol and Drug Abuse Patient Records regulations: The Federal rules restrict any use of the information to criminally investigate or prosecute any alcohol or drug abuse patient.[facility] HospitalIn the event this information is protected by the Federal Confidentiality of Alcohol and Drug Abuse Patient Records regulations: The Federal rules restrict any use of the information to criminally investigate or prosecute any alcohol or drug abuse patient.[facility]In the event this information is protected by the Federal Confidentiality of Alcohol and Drug Abuse Patient Records regulations: The Federal rules restrict any use of the information to criminally investigate or prosecute any alcohol or drug abuse patient.[facility] HospitalIn the event this information is protected by the Federal Confidentiality of Alcohol and Drug Abuse Patient Records regulations: The Federal rules restrict any use of the information to criminally investigate or prosecute any alcohol or drug abuse patient.[facility]In the event this information is protected by the Federal Confidentiality of Alcohol and Drug Abuse Patient Records regulations: The Federal rules restrict any use of the information to criminally investigate or prosecute any alcohol or drug abuse patient.[facility] HospitalIn the event this information is protected by the Federal Confidentiality of Alcohol and Drug Abuse Patient Records regulations: The Federal rules restrict any use of the information to criminally investigate or prosecute any alcohol or drug abuse patient.[facility] the event this information is protected by the Federal Confidentiality of Alcohol and Drug Abuse Patient Records regulations: The Federal rules restrict any use of the information to criminally investigate or prosecute any alcohol or drug abuse patient.[facility] HospitalIn the event this information is protected by the Federal Confidentiality of Alcohol and Drug Abuse Patient Records regulations: The Federal rules restrict any use of the information to criminally investigate or prosecute any alcohol or drug abuse patient.[facility] the event this information is protected by the Federal Confidentiality of Alcohol and Drug Abuse Patient Records regulations: The Federal rules restrict any use of the information to criminally investigate or prosecute any alcohol or drug abuse patient.[facility] Hospital[facility] the event this information is protected by the Federal Confidentiality of Alcohol and Drug Abuse Patient Records regulations: The Federal rules restrict any use of the information to criminally investigate or prosecute any alcohol or drug abuse patient.[facility] HospitalIn the event this information is protected by the Federal Confidentiality of Alcohol and Drug Abuse Patient Records regulations: The Federal rules restrict any use of the information to criminally investigate or prosecute any alcohol or drug abuse patient.[facility] Hospital[facility] the event this information is protected by the Federal Confidentiality of Alcohol and Drug Abuse Patient Records regulations: The Federal rules restrict any use of the information to criminally investigate or prosecute any alcohol or drug abuse patient.[facility] HospitalIn the event this information is protected by the Federal Confidentiality of Alcohol and Drug Abuse Patient Records regulations: The Federal rules restrict any use of the information to criminally investigate or prosecute any alcohol or drug abuse patient.[facility] Reason for Visit (unrecogniz ed section [...] incontinence Procedures CONSULT TO URO GYNECOLOGY OFFICE/OUTPATIENT NEW HIGH MDM 60-74 MINUTES Jayde Hebert MD [address] [place] [address] Referral ID Status Reason Start Date Expiration Date V isits Requested Visits Authorized [id number] Closed PCP Requested Referral Auto-Generated Referral 08/30/2021 11/28/2021 1 1 Reason Comments Anticoagulation Telephone Fu home INR Reason Comments Consult Specialty Diagnoses / Procedures Referred By Contac t Referred To Contact Infectious Diseases Diagnoses Recurrent UTI History of ESBL E. coli infection Procedures CONSULT TO INFECTIOUS DISEASES OFFICE/OUTPATIENT NEW HIGH MDM 60-74 MINUTES Basilia Hernández MD [address] [address] Referral ID Status Reason Start Date Expiration Date V isits Requested Visits Authorized [id number] Closed PCP Requested Referral 09/26/2021 09/26/2022 1 1 Reason Onset Date Comments Anticoagulation Telephone Fu 10/15/2021 Agustín e INR Result Reason Comments High INR/lab order Reason Comments Release Of Medical Records Reason Comments Patient Question Reason Comments PAC TRANSFER OF CARE Reason Comments Blood Draw (CVAD) Reason Onset Date Comments Product Architect - Other 12/25/2021 Reason Comments Recurrent UTI Reason Comments Established Patient Last seen 11/09/20 S/P Left ring trigger finger release (7 Reason Comments Returning Patient's Call Reason Comments Orders Appointment Reason Comments Results CBC Reason Comments Non-Chemotherapy Treatment Specialty Diagnoses / Procedures Referred By Contac t Referred To Contact Diagnoses 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 Sal Bonilla, DO [address] [place] [address] [facility] [address] [place] [address] Referral ID Status Reason Start Date Expiration Date V isits Requested Visits Authorized [id number] Authorized 03/24/2022 06/22/2022 99 99 Reason Comments Product Architect - Other Symptoms Reason Comments Follow Up [...] Contac t Referred To Contact [facility] Diagnoses Rheumatoid arthritis involving multiple sites with positive rheumatoid factor (HCC) Procedures INJECTION, RENFLEXIS Thalia Monterroso MD [facility] [place] [address] [facility] [address] [place] [address] Referral ID Status Reason Start Date Expiration Date V isits Requested Visits Authorized [id number] Authorized 07/16/2023 03/16/2024 99 99 Specialty Diagnoses / Procedures Referred By Contac t Referred To Contact [facility] Diagnoses Rheumatoid arthritis involving multiple sites with positive rheumatoid factor (HCC) Procedures INJECTION, RENFLEXIS Thalia Monterroso MD [address] [place] [id number] [facility] [address] [place] [address] Reason Comments Joint Pain Specialty Diagnoses / Procedures Referred By Contac t Referred To Contact Diagnoses Senile osteoporosis Thalia Monterroso MD [address] [place] [address] [facility] [address] [address] Referral ID Status Reason Start Date Expiration Date V isits Requested Visits Authorized [id number] Authorized 11/14/2023 02/12/2024 99 99 Reason Comments Established Patient Specialty Diagnoses / Procedures Referred By Contac t Referred To Contact Diagnoses 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 Cassidy Arreola APRN.[employer] [address] [place] [address] [facility] [address] [place] [address] Referral ID Status Reason Start Date Expiration Date V isits Requested Visits Authorized [id number] Authorized 02/24/2024 05/24/2024 99 99 Specialty Diagnoses / Procedures Referred By Contac t Referred To Contact Diagnoses 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 Cassidy Arreola, SILVIO.[employer] [address] [place] [address] [facility] [address] [place] [address] Specialty Diagnoses / Procedures Referred By Contac t Referred To Contact CT IMAGING Diagnoses Iron deficiency anemia due to chronic blood loss Bilateral hip pain Generalized abdominal pain Abdominal bloating Personal history of breast cancer Occult blood in stools Procedures CT CHEST W IVCON DIAGNOSTIC COMPUTED TOMOGRAPHY THORAX W/CONTRAST Cassidy Arreola APRN.[employer] [address] [place] [address] [place] [address] Referral ID Status Reason Start Date Expiration Date V isits Requested Visits Authorized [id number] Closed Auto-Generate d Referral 02/24/2024 03/25/2025 [address] Specialty Diagnoses / Procedures Referred By [facility] Referred To Contact CT IMAGING Diagnoses Iron deficiency anemia due to chronic blood loss Bilateral hip pain Generalized abdominal pain Abdominal bloating Personal history of breast cancer Occult blood in stools Procedures CT CHEST W IVCON DIAGNOSTIC COMPUTED TOMOGRAPHY THORAX W/CONTRAST Cassidy Arreola, SILVIO[employer] [address] [place] [address] [place] [address] Reason Comments Joint Pain Reason Comments Scheduling Care Teams (unrecognized sec tion and content) Brokerage Manager Relationship Specialty Start Date End Date Galina Iraheta MD [address] [place], [place] [id number] PCP - General Internal Medicine 01/15/16 13, Pharmacist [phone] [place] [address] Pharmacist Pharmacy 08/22/20 Brokerage Manager Relationship Specialty Start Date End Date Galina Iraheta MD [address] [place], [place] [id number] PCP - General Internal Medicine 01/15/16 13, Pharmacist [phone] [facility] [place] [address] Pharmacist Pharmacy 08/22/20 Brokerage Manager Relationship Specialty Start Date End Date Galina Iraheta MD [address] [facility] [place] [address] PCP - General Internal Medicine 01/15/16 13, Pharmacist [phone] [facility] [place] [address] Pharmacist Pharmacy 08/22/20 Brokerage Manager Relationship Specialty Start Date End Date Galina Iraheta MD [address] [facility] [place] [address] PCP - General Internal Medicine 01/15/16 13, Pharmacist [phone] [facility] [place] [address] Pharmacist Pharmacy 08/22/20 Brokerage Manager Relationship Specialty Start Date End Date Galina Iraheta MD [address] [facility] [place] [address] PCP - General Internal Medicine 01/15/16 13, Pharmacist [phone] [facility] [place] [address] Pharmacist Pharmacy 08/22/20 Brokerage Manager Relationship Specialty Start Date End Date Galina Iraheta MD [address] [facility] [place] [address] PCP - General Internal Medicine 01/15/16 13, Pharmacist [phone] [facility] [place] [address] Pharmacist Pharmacy 08/22/20 Brokerage Manager Relationship Specialty Start Date End Date Galina Iraheta MD [address] [facility] [place] [address] PCP - General Internal Medicine 01/15/16 13, Pharmacist [phone] [facility] [place] [address] Pharmacist Pharmacy 08/22/20 Brokerage Manager Relationship Specialty Start Date End Date Galina Iraheta MD [address] [facility] [place] [address] PCP - General Internal Medicine 01/15/16 13, Pharmacist [phone] [facility] [place] [address] Pharmacist Pharmacy 08/22/20 Brokerage Manager Relationship Specialty Start Date End Date Galina Iraheta MD [address] [facility] [place] [address] PCP - General Internal Medicine 01/15/16 13, Pharmacist [phone] [facility] [place] [address] Pharmacist Pharmacy 08/22/20 Brokerage Manager Relationship Specialty Start Date End Date Galina Iraheta MD [address] [place] [address] PCP - General Internal Medicine 01/15/16 13, Pharmacist [phone] [place] [address], [place] [address] Pharmacist Pharmacy 08/22/20 Brokerage Manager Relationship Specialty Start Date End Date Galina Iraheta MD [address] [place] [address] PCP - General Internal Medicine 01/15/16 13, Pharmacist [phone] [place] [address], [place] [address] Pharmacist Pharmacy 08/22/20 Brokerage Manager Relationship Specialty Start Date End Date Galina Iraheta MD [address] [place] [address] PCP - General Internal Medicine 01/15/16 13, Pharmacist [phone] [facility] [place] [address] Pharmacist Pharmacy 08/22/20 Brokerage Manager Relationship Specialty Start Date End Date Galina Iraheta MD [address] [place] [address] PCP - General Internal Medicine 01/15/16 13, Pharmacist [phone] [facility] [place] [address] Pharmacist Pharmacy 08/22/20 Brokerage Manager Relationship Specialty Start Date End Date Galina Iraheta MD [address] [facility] [place] [address] PCP - General Internal Medicine 01/15/16 13, Pharmacist [phone] [facility] [place] [address] Pharmacist Pharmacy 08/22/20 Brokerage Manager Relationship Specialty Start Date End Date Galina Iraheta MD [address] [facility] [place] [address] PCP - General Internal Medicine 01/15/16 13, Pharmacist [phone] [facility] [place] [address] Pharmacist Pharmacy 08/22/20 Brokerage Manager Relationship Specialty Start Date End Date Galina Iraheta MD [address] [facility] [place] [address] PCP - General Internal Medicine 01/15/16 13, Pharmacist [phone] [facility] [place] [address] Pharmacist Pharmacy 08/22/20 Brokerage Manager Relationship Specialty Start Date End Date Galina Iraheta MD [address] [facility] [place] [address] PCP - General Internal Medicine 01/15/16 13, Pharmacist [phone] [facility] [place] [address] Pharmacist Pharmacy 08/22/20 Brokerage Manager Relationship Specialty Start Date End Date Galina Iraheta MD [address] [facility] [place] [address] PCP - General Internal Medicine 01/15/16 13, Pharmacist [phone] [facility] [place] [address] Pharmacist Pharmacy 08/22/20 Brokerage Manager Relationship Specialty Start Date End Date Galina Iraheta MD [address] [facility] [place] [address] PCP - General Internal Medicine 01/15/16 13, Pharmacist [phone] [facility] [place] [address] Pharmacist Pharmacy 08/22/20 Brokerage Manager Relationship Specialty Start Date End Date Galina Iraheta MD [address] [facility] [place] [address] PCP - General Internal Medicine 01/15/16 13, Pharmacist [phone] [facility] [place] [address] Pharmacist Pharmacy 08/22/20 Brokerage Manager Relationship Specialty Start Date End Date Galina Iraheta MD [address] [facility] [place] [address] PCP - General Internal Medicine 01/15/16 13, Pharmacist [phone] [facility] [place] [address] Pharmacist Pharmacy 08/22/20 Brokerage Manager Relationship Specialty Start Date End Date Galina Iraheta MD [address] [facility] [place] [address] PCP - General Internal Medicine 01/15/16 13, Pharmacist [phone] [facility] [place] [address] Pharmacist Pharmacy 08/22/20 Brokerage Manager Relationship Specialty Start Date End Date Galina Iraheta MD [address] [facility] [place] [address] PCP - General Internal Medicine 01/15/16 13, Pharmacist [phone] [facility] [place] [address] Pharmacist Pharmacy 08/22/20 Brokerage Manager Relationship Specialty Start Date End Date Galina Iraheta MD [address] [facility] [place] [address] PCP - General Internal Medicine 01/15/16 13, Pharmacist [phone] [facility] [place] [address] Pharmacist Pharmacy 08/22/20 Brokerage Manager Relationship Specialty Start Date End Date Galina Iraheta MD [address] [facility] [place] [address] PCP - General Internal Medicine 01/15/16 13, Pharmacist [phone] [facility] [place] [address] Pharmacist Pharmacy 08/22/20 Brokerage Manager Relationship Specialty Start Date End Date Galina Iraheta MD [address] [facility] [place] [address] PCP - General Internal Medicine 01/15/16 13, Pharmacist [phone] [facility] [place] [address] Pharmacist Pharmacy 08/22/20 Brokerage Manager Relationship Specialty Start Date End Date Galina Iraheta MD [address] [place] [address] PCP - General Internal Medicine 01/15/16 13, Pharmacist [phone] [place] [address], [place] [address] Pharmacist Pharmacy 08/22/20 Brokerage Manager Relationship Specialty Start Date End Date Galina Iraheta MD [address] [place] [address] PCP - General Internal Medicine 01/15/16 13, Pharmacist [phone] [facility] [place] [address] Pharmacist Pharmacy 08/22/20 Brokerage Manager Relationship Specialty Start Date End Date Galina Iraheta MD [address] [facility] [place] [address] PCP - General Internal Medicine 01/15/16 13, Pharmacist [phone] [facility] [place] [address] Pharmacist Pharmacy 08/22/20 Brokerage Manager Relationship Specialty Start Date End Date Galina Iraheta MD [address] [facility] [place] [address] PCP - General Internal Medicine 01/15/16 Brokerage Manager Relationship Specialty Start Date End Date Galina Iraheta MD [address] [facility] [place] [address] PCP - General Internal Medicine 01/15/16 Brokerage Manager Relationship Specialty Start Date End Date Galina Iraheta MD [address] [place] [address] PCP - General Internal Medicine 01/15/16 Brokerage Manager Relationship Specialty Start Date End Date Galina Iraheta MD [address] [place] [address] PCP - General Internal Medicine 01/15/16 Brokerage Manager Relationship Specialty Start Date End Date Galina Iraheta MD [address] [place] [address] PCP - General Internal Medicine 01/15/16 Brokerage Manager Relationship Specialty Start Date End Date Galina Iraheta MD [address] [place] [address] PCP - General Internal Medicine 01/15/16 Brokerage Manager Relationship Specialty Start Date End Date Galina Iraheta MD [address] [place] [address] PCP - General Internal Medicine 01/15/16 Brokerage Manager Relationship Specialty Start Date End Date Galina Iraheta MD [address] [facility] [address] PCP - General Internal Medicine 01/15/16 Brokerage Manager Relationship Specialty Start Date End Date Galina Iraheta MD [address] [place] [address] PCP - General Internal Medicine 01/15/16 Brokerage Manager Relationship Specialty Start Date End Date Galina Iraheta MD [address] [place] [address] PCP - General Internal Medicine 01/15/16 Sal Bonilla, [address] [place] [address] Hematology/Oncology 03/22/22 Brokerage Manager Relationship Specialty Start Date End Date Galina Iraheta MD [address] [place] [address] PCP - General Internal Medicine 01/15/16 Sal Bonilla, DO [address] [place] [address] Hematology/Oncology 03/22/22 Brokerage Manager Relationship Specialty Start Date End Date Galina Iraheta MD [address] [place] [address] PCP - General Internal Medicine 01/15/16 Sal Bonilla, DO [address] [place] [address] Hematology/Oncology 03/22/22 Team Status: Active Member Role Status Dates Dr. Galina Iraheta MD Family Provider Active Dr. Galina Iraheta MD Primary Care Provider Active Team Status: Inactive Member Role Status Dates Dr. Galina Iraheta MD Primary Care Provider Active Galina Horner HEALTH POLICY ANALYST, HEALTH POLICY ANALYST-C Attending Provider Active Team Status: Inactive Member [...] MD Primary Care Provider Active Galina Horner NP, HEALTH POLICY ANALYST-C Attending Provider, Referring Provider Active Team Status: Active Member Role Status Dates Dr. Galina Iraheta MD Primary Care Provider Active Payam Reyna MD Attending Provider Active Brokerage Manager Relationship Specialty Start Date End Date Galina Iraheta MD [address] [place] [address] PCP - General Internal Medicine 01/15/16 Sal Bonilla, DO [address] [place] [address] Hematology/Oncology 03/22/22 Brokerage Manager Relationship Specialty Start Date End Date Galina Iraheta MD [address] [place] [address] PCP - General Internal Medicine 01/15/16 Sal Bonilla, DO [address] [place] [address] Hematology/Oncology 03/22/22 Brokerage Manager Relationship Specialty Start Date End Date Galina Iraheta MD [address] [place] [address] PCP - General Internal Medicine 01/15/16 Sal Bonilla, DO [address] [place] [address] Hematology/Oncology 03/22/22 Brokerage Manager Relationship Specialty Start Date End Date Galina Iraheta MD [address] [place] [address] PCP - General Internal Medicine 01/15/16 Sal Bonilla, DO [address] [place] [address] Hematology/Oncology 03/22/22 Brokerage Manager Relationship Specialty Start Date End Date Galina Iraheta MD [address] [place] [address] PCP - General Internal Medicine 01/15/16 Sal Bonilla, DO [address] [place] [address] Hematology/Oncology 03/22/22 Brokerage Manager Relationship Specialty Start Date End Date Galina Iraheta MD [address] [facility] [address] PCP - General Internal Medicine 01/15/16 Sal Bonilla, DO [address] [facility] [place] [address] Hematology/Oncology 03/22/22 Brokerage Manager Relationship Specialty Start Date End Date Galina Iraheta MD [address] [place] [address] PCP - General Internal Medicine 01/15/16 Sal Bonilla, DO [address] [place] [address] Hematology/Oncology 03/22/22 Team Status: Inactive Member Role Status Dates Dr. Galina Iraheta MD Primary Care Provider Active Payam POPE MD Attending Provider Active Team Status: Inactive Member Role Status Dates Dr. Galina Iraheta MD Primary Care Provider Active Alejo POPE MD Attending Provider, Referring Pr ovider Active Team Status: Inactive Member Role Status Dates Dr. Galina Iraheta MD Primary Care Provider Active Alejo POPE MD Attending Provider Active Team Status: Active Member Role Status Dates Dr. Galina Iraheta MD Primary Care Provider Active Payam POPE MD Attending Provider Active Brokerage Manager Relationship Specialty Start Date End Date Galina Iraheta MD [address] [facility] [address] PCP - General Internal Medicine 01/15/16 Sal Bonilla, DO [address] [facility] [address] Hematology/Oncology 03/22/22 Brokerage Manager Relationship Specialty Start Date End Date Galina Iraheta MD [address] [place] [address] PCP - General Internal Medicine 01/15/16 Sal Bonilla DO [address] [place] [address] Hematology/Oncology 03/22/22 Brokerage Manager Relationship Specialty Start Date End Date Galina Iraheta MD [address] [place] [address] PCP - General Internal Medicine 01/15/16 Sal Bonilla DO [address] [place] [address] Hematology/Oncology 03/22/22 Brokerage Manager Relationship Specialty Start Date End Date Galina Iraheta MD [address] [place] [address] PCP - General Internal Medicine 01/15/16 Sal Bonilla DO [address] [place] [address] Hematology/Oncology 03/22/22 Brokerage Manager Relationship Specialty Start Date End Date Galina Iraheta MD [address] [place] [address] PCP - General Internal Medicine 01/15/16 Sal Bonilla DO [address] [place] [address] Hematology/Oncology 03/22/22 Brokerage Manager Relationship Specialty Start Date End Date Galina Iraheta MD [address] [place] [address] PCP - General Internal Medicine 01/15/16 Sal Bonilla DO [address] [facility] [place] [address] Hematology/Oncology 03/22/22 Brokerage Manager Relationship Specialty Start Date End Date Galina Iraheta MD [address] [facility] [place] [address] PCP - General Internal Medicine 01/15/16 Sal Bonilla DO [address] [facility] [address] Hematology/Oncology 03/22/22 Brokerage Manager Relationship Specialty Start Date End Date Galina Iraheta MD [address] [facility] [place] [address] PCP - General Internal Medicine 01/15/16 Sal Bonilla DO [address] [facility] [place] [address] Hematology/Oncology 03/22/22 Brokerage Manager Relationship Specialty Start Date End Date Galina Iraheta MD [address] [place] [address] PCP - General Internal Medicine 01/15/16 Sal Bonilla DO [address] [facility] [place] [address] Hematology/Oncology 03/22/22 Brokerage Manager Relationship Specialty Start Date End Date Payam Reyna MD [address] [facility] [address] PCP - General Internal Medicine 02/24/23 Sal Bonilla DO [address] [place] [address] Hematology/Oncology 03/22/22 Brokerage Manager Relationship Specialty Start Date End Date Payam Reyna MD [address] [place] [address] PCP - General Internal Medicine 02/24/23 Sal Bonilla DO [address] [place] [address] Hematology/Oncology 03/22/22 Brokerage Manager Relationship Specialty Start Date End Date Payam Reyna MD [address] [place] [address] PCP - General Internal Medicine 02/24/23 Sal Bonilla DO [address] [place] [address] Hematology/Oncology 03/22/22 Brokerage Manager Relationship Specialty Start Date End Date Payam Reyna MD [address] [place] [address] PCP - General Internal Medicine 02/24/23 Sal Bonilla DO [address] [place] [address] Hematology/Oncology 03/22/22 Brokerage Manager Relationship Specialty Start Date End Date Payam Reyna MD [address] [place], [place] [address] 402- PCP - General Internal Medicine 02/24/23 Sal Bonilla DO [address] [place] [address] Hematology/Oncology 03/22/22 Brokerage Manager Relationship Specialty Start Date End Date Payam Reyna MD [address] [place] [address] PCP - General Internal Medicine 02/24/23 Sal Bonilla DO [address] [place] [address] Hematology/Oncology 03/22/22 Brokerage Manager Relationship Specialty Start Date End Date Payam Reyna MD [address] [place] [address] PCP - General Internal Medicine 02/24/23 Sal Bonilla DO [address] [place] [address] Hematology/Oncology 03/22/22 Brokerage Manager Relationship Specialty Start Date End Date Payam Reyna MD [address] [place] [address] PCP - General Internal Medicine 02/24/23 Sal Bonilla DO [address] [place], [place] [id number] [phone] Hematology/Oncology 03/22/22 Brokerage Manager Relationship Specialty Start Date End Date Payam Reyna MD [address] [place], [place] [id number] PCP - General Internal Medicine 02/24/23 Sal Bonilla DO [address] [place] [address] Hematology/Oncology 03/22/22 Brokerage Manager Relationship Specialty Start Date End Date Payam Reyna MD [address] [place] [address] PCP - General Internal Medicine 02/24/23 Sal Bonilla DO [address] [place] [address] Hematology/Oncology 03/22/22 Brokerage Manager Relationship Specialty Start Date End Date Payam Reyna MD [address] [place] [address] PCP - General Internal Medicine 02/24/23 Sal Bonilla DO [address] [place] [address] Hematology/Oncology 03/22/22 Brokerage Manager Relationship Specialty Start Date End Date Payam Reyna MD [address] [place] [address] PCP - General Internal Medicine 02/24/23 Sal Bonilla DO [address] [place] [address] Hematology/Oncology 03/22/22 Brokerage Manager Relationship Specialty Start Date End Date Payam Reyna MD [address] [place] [address] PCP - General Internal Medicine 02/24/23 Sal Bonilla DO [address] [place] [address] Hematology/Oncology 03/22/22 Brokerage Manager Relationship Specialty Start Date End Date Payam Reyna MD [address] [place] [address] PCP - General Internal Medicine 02/24/23 Sal Bonilla DO [address] [place] [address] Hematology/Oncology 03/22/22 Brokerage Manager Relationship Specialty Start Date End Date Payam Reyna MD [address] [place] [address] PCP - General Internal Medicine 02/24/23 Sal Bonilla DO [address] [place] [address] Hematology/Oncology 03/22/22 Brokerage Manager Relationship Specialty Start Date End Date Payam Reyna MD [address] [place] [address] PCP - General Internal Medicine 02/24/23 Sal Bonilla DO [address] [place] [address] Hematology/Oncology 03/22/22 Brokerage Manager Relationship Specialty Start Date End Date Payam Reyna MD [address] [place] [address] PCP - General Internal Medicine 02/24/23 Sal Bonilla DO [address] [place] [address] Hematology/Oncology 03/22/22 Brokerage Manager Relationship Specialty Start Date End Date Payam Reyna MD [address] [place] [address] PCP - General Internal Medicine 02/24/23 Sal Bonilla DO [address] [place] [address] Hematology/Oncology 03/22/22 Brokerage Manager Relationship Specialty Start Date End Date Payam Reyna MD [address] [place] [address] PCP - General Internal Medicine 02/24/23 Sal Bonilla DO [address] [place] [address] Hematology/Oncology 03/22/22 Brokerage Manager Relationship Specialty Start Date End Date Payam Reyna MD [address] [place] [address] PCP - General Internal Medicine 02/24/23 Sal Bonilla DO [address] [place] [address] Hematology/Oncology 03/22/22 Brokerage Manager Relationship Specialty Start Date End Date Payam Reyna MD [address] [place] [address] PCP - General Internal Medicine 02/24/23 Sal Bonilla DO [address] [place] [address] Hematology/Oncology 03/22/22 Brokerage Manager Relationship Specialty Start Date End Date Payam Reyna MD [address] [place] [address] PCP - General Internal Medicine 02/24/23 Sal Bonilla DO [address] [place] [address] Hematology/Oncology 03/22/22 Brokerage Manager Relationship Specialty Start Date End Date Payam Reyna MD [address] [place] [address] PCP - General Internal Medicine 02/24/23 Sal Bonilla DO [address] [place] [address] Hematology/Oncology 03/22/22 Brokerage Manager Relationship Specialty Start Date End Date Galina Iraheta MD [address] [place] [address] PCP - General Internal Medicine 01/15/16 02/23/23 13, Pharmacist [id number] [place] [address] Pharmacist Pharmacy 08/22/20 11/04/21 Brokerage Manager Relationship Specialty Start Date End Date Galina Iraheta MD [address] [place] [address] PCP - General Internal Medicine 01/15/16 02/23/23 13, Pharmacist [id number] [place] [address] Pharmacist Pharmacy 08/22/20 11/04/21 Brokerage Manager Relationship Specialty Start Date End Date Galina Iraheta MD [address] [facility] [place], [place] [address] PCP - General Internal Medicine 01/15/16 02/23/23 Brokerage Manager Relationship Specialty Start Date End Date Payam Reyna MD [address] [place] [address] PCP - General Internal Medicine 02/24/23 Sal Bonilla DO [address] [facility] [facility] [place] [address] Hematology/Oncology 03/22/22 Brokerage Manager Relationship Specialty Start Date End Date Payam Reyna MD [address] [place] [address] PCP - General Internal Medicine 02/24/23 Sal Bonilla DO [address] [facility] [facility] [place] [address] Hematology/Oncology 03/22/22 Brokerage Manager Relationship Specialty Start Date End Date Payam Reyna MD [address] [place] [address] PCP - General Internal Medicine 02/24/23 Sal Bonilla DO [address] [facility] [facility] [place] [address] Hematology/Oncology 03/22/22 Brokerage Manager Relationship Specialty Start Date End Date Payam Reyna MD [address] [place], [place] [phone] PCP - General Internal Medicine 02/24/23 Sal Bonilla DO [address] [place] [address] Hematology/Oncology 03/22/22 Brokerage Manager Relationship Specialty Start Date End Date Payam Reyna MD [address] [place] [address] PCP - General Internal Medicine 02/24/23 Sal Bonilla DO [address] [place] [address] Hematology/Oncology 03/22/22 Brokerage Manager Relationship Specialty Start Date End Date Payam Reyna MD [address] [place] [address] PCP - General Internal Medicine 02/24/23 Sal Bonilla DO [address] [place] [address] Hematology/Oncology 03/22/22 Brokerage Manager Relationship Specialty Start Date End Date Payam Reyna MD [address] [place] [address] PCP - General Internal Medicine 02/24/23 Sal Bonilla DO [address] [place] [address] Hematology/Oncology 03/22/22 Brokerage Manager Relationship Specialty Start Date End Date Payam Reyna MD [address] [place] [address] PCP - General Internal Medicine 02/24/23 Sal Bonilla DO [address] [facility] [address] Hematology/Oncology 03/22/22 Brokerage Manager Relationship Specialty Start Date End Date Payam Reyna MD [address] [place] [address] PCP - General Internal Medicine 02/24/23 Sal Bonilla DO [address] [facility] [place] [address] Hematology/Oncology 03/22/22 Brokerage Manager Relationship Specialty Start Date End Date Payam Reyna MD [address] [place] [address] PCP - General Internal Medicine 02/24/23 Sal Bonilla DO [address] [facility] [place] [address] Hematology/Oncology 03/22/22 Brokerage Manager Relationship Specialty Start Date End Date Payam Reyna MD [address] [place] [address] PCP - General Internal Medicine 02/24/23 Sal Bonilla DO [address] [facility] [place] [address] Hematology/Oncology 03/22/22 Brokerage Manager Relationship Specialty Start Date End Date Payam Reyna MD [address] [place] [address] PCP - General Internal Medicine 02/24/23 Sal Bonilla TasiaDO [address] [place] [address] Hematology/Oncology 03/22/22 Team Status: Active Member Role [...] April 05, 2024 End: April 05, 2024 Payam POPE MD Attending Provider [...] 2024 End: May 13, 2024 Galina Horner HEALTH POLICY ANALYST, HEALTH POLICY ANALYST-C Attending Provider Active Start: May 13, 2024 [...] August 18, 2024 End: August 18, 2024 Brokerage Manager Relationship Specialty Start Date End Date Payam Reyna MD [address] [place] [address] PCP - General Internal Medicine 02/24/23 Sal Bonilla DO [address] [place] [address] Hematology/Oncology 03/22/22 Team Status: Active Member Role [...] August 12, 2024 End: August 12, 2024 Brokerage Manager Relationship Specialty Start Date End Date Payam Reyna MD [address], [place] [address] PCP - General Internal Medicine 02/24/23 Sal Bonilla DO [address] [place], [place] [address] Hematology/Oncology 03/22/22 Team Status: Active Member Role/Relationship Status Dates Galina Horner NP HEALTH POLICY ANALYST-C Primary Care Provider Active Team Status: Inactive [...] End: August 12, 2024 Galina Horner NP HEALTH POLICY ANALYST-C Attending Provider Active Start: August 12, 2024 [...] September 03, 2024 End: September 03, 2024 Carmella Deluca HEALTH POLICY ANALYST-C Attending Provider Active Start: September 03, 2024 [...] 2024 End: September 14, 2024 Galina Horner HEALTH POLICY ANALYST, HEALTH POLICY ANALYST-C Primary Care Provider Active Start: September 14, 2024 End: September 14, 2024 Team Status: Inactive Member Role/Relationship Status Dates Dr. Sung Torres DO Attending Provider Active Start: September 14, 2024 End: September 14, 2024 Dr. Sung Torres DO Emergency Provider Active Start: September 14, 2024 End: September 14, 2024 Galina Horner HEALTH POLICY ANALYST, HEALTH POLICY ANALYST-C Primary Care Provider Active Start: September 14, 2024 End: September 14, 2024 Team Status: Active Member Role/Relationship Status Dates Dr. Payam Reyna MD Referring Provider Active Start: September 24, 2024 Carmella Deluca NP-C Attending Provider Active Start: September 24, 2024 Galina Horner HEALTH POLICY ANALYST, HEALTH POLICY ANALYST-C Primary Care Provider Active Start: September 24, 2024 Team Status: Inactive Member Role/Relationship Status Dates Galina Horner HEALTH POLICY ANALYST, HEALTH POLICY ANALYST-C Primary Care Provider Active Start: September 24, 2024 End: September 24, 2024 Dr. Charles Ramos MD Attending Provider Active S tart: September 24, 2024 End: September 24, 2024 Team Status: Inactive Member Role/Relationship Status Dates Dr. Payam Reyna MD Referring Provider Active Start: September 24, 2024 End: September 24, 2024 Carmella Deluca HEALTH POLICY ANALYST-C Attending Provider Active Start: September 24, 2024 End: September 24, 2024 Galina Horner HEALTH POLICY ANALYST, HEALTH POLICY ANALYST-C Primary Care Provider Active Start: September 24, [...] End: August 12, 2024 Galina Horner NP HEALTH POLICY ANALYST-C Attending Provider Active Start: August 12, 2024 [...] Inactive Member Role/Relationship Status Dates Galina Horner NP HEALTH POLICY ANALYST-C Primary Care Provider Active Start: August 16, 2024 End: August 16, 2024 Galina Horner NP HEALTH POLICY ANALYST-C Attending Provider Active Start: August 16, 2024 End: August 16, 2024 Team Status: Active Member Role/Relationship Status Dates Galina Horner NP HEALTH POLICY ANALYST-C Primary Care Provider Active Start: October 04, [...] 2024 End: August 12, 2024 Galina Horner HEALTH POLICY ANALYST, HEALTH POLICY ANALYST-C Attending Provider Active Start: August 12, 2024 End: August 12, 2024 Team Status: Inactive Member Role/Relationship Status Dates Dr. Payam Reyna MD Primary Care Provider Active Start: August 13, 2024 End: August 13, 2024 Dr. Payam Reyna MD Referring Provider Active Start: August 13, 2024 End: August 13, 2024 Carmella Deluca NP-C Attending Provider Active Start: August 13, 2024 End: August 13, 2024 Team Status: Inactive Member Role/Relationship Status Dates Dr. Payam Reyna MD Primary Care Provider Active Start: August 13, 2024 End: August 13, 2024 Dr. Charles Ramos MD Attending Provider Active S tart: August 13, 2024 End: August 13, 2024 Team Status: Inactive Member Role/Relationship Status Dates Galina Horner HEALTH POLICY ANALYST, HEALTH POLICY ANALYST-C Primary Care Provider Active Start: August 16, 2024 End: August 16, 2024 Galina Horner HEALTH POLICY ANALYST, HEALTH POLICY ANALYST-C Attending Provider Active Start: August 16, 2024 [...] September 03, 2024 End: September 03, 2024 Carmella Deluca NP-C Attending Provider Active Start: September 03, 2024 [...] Inactive Member Role/Relationship Status Dates Galina Horner HEALTH POLICY ANALYST, HEALTH POLICY ANALYST-C Primary Care Provider Active Start: September 14, 2024 Dr. Hiwot Abdullahi MD Attending Provider Active Start: September 14, 2024 Team Status: Active Member Role/Relationship Status Dates Galina Horner HEALTH POLICY ANALYST, HEALTH POLICY ANALYST-C Primary Care Provider Active Start: October 13, 2024 Carmella Deluca HEALTH POLICY ANALYST-C Attending Provider Active Start: October 13, 2024 Carmella Deluca NP-C Referring Provider Active Start: October 13, 2024 Team Status: Active Member Role/Relationship Status Dates Galina Horner HEALTH POLICY ANALYST, HEALTH POLICY ANALYST-C Primary Care Provider Active Start: October 22, 2024 Galina Horner HEALTH POLICY ANALYST, HEALTH POLICY ANALYST-C Referring Provider Active Start: October 22, 2024 Carmella Deluca HEALTH POLICY ANALYST-C Attending Provider Active Start: October 22, 2024 Team Status: Inactive Member Role/Relationship Status Dates Galina Horner HEALTH POLICY ANALYST, HEALTH POLICY ANALYST-C Primary Care Provider Active Start: October 22, 2024 End: October 22, 2024 Dr. Charles Ramos MD Attending Provider Active S tart: October 22, 2024 End: October 22, 2024 Team Status: Inactive Member Role/Relationship Status Dates Galina Horner HEALTH POLICY ANALYST, HEALTH POLICY ANALYST-C Primary Care Provider Active Start: October 22, 2024 End: October 22, 2024 Galina Horner HEALTH POLICY ANALYST, HEALTH POLICY ANALYST-C Referring Provider Active Start: October 22, 2024 End: October 22, 2024 Carmella Deluca HEALTH POLICY ANALYST-C Attending Provider Active Start: October 22, 2024 End: October 22, 2024 Team Status: Inactive Member Role/Relationship Status Dates Galina Horner HEALTH POLICY ANALYST, HEALTH POLICY ANALYST-C Primary Care Provider Active Start: September 20, 2024 End: September 20, 2024 Galina Horner HEALTH POLICY ANALYST, HEALTH POLICY ANALYST-C Attending Provider Active Start: September 20, 2024 End: September 20, 2024 Team Status: Inactive Member Role/Relationship Status Dates Dr. Payam Reyna MD Referring Provider Active Start: September 24, 2024 End: September 24, 2024 Carmella Deluca HEALTH POLICY ANALYST-C Attending Provider Active Start: September 24, 2024 End: September 24, 2024 Galina Horner HEALTH POLICY ANALYST, HEALTH POLICY ANALYST-C Primary Care Provider Active Start: September 24, 2024 End: September 24, 2024 Team Status: Inactive Member Role/Relationship Status Dates Galina Horner HEALTH POLICY ANALYST, HEALTH POLICY ANALYST-C Primary Care Provider Active Start: September 24, 2024 End: September 24, 2024 Dr. Charles Ramos MD Attending Provider Active S tart: September 24, 2024 End: September 24, 2024 Team Status: Active Member Role/Relationship Status Dates Galina Horner HEALTH POLICY ANALYST, HEALTH POLICY ANALYST-C Primary Care Provider Active Start: October 04, 2024 Payam POPE MD Attending Provider Active Start: October 04, 2024 Team Status: Active Member Role/Relationship Status Dates Galina Horner HEALTH POLICY ANALYST, HEALTH POLICY ANALYST-C Primary Care Provider Active Start: October 13, 2024 Carmella Deluca HEALTH POLICY ANALYST-C Attending Provider Active Start: October 13, 2024 Carmella Deluca HEALTH POLICY ANALYST-C Referring Provider Active Start: October 13, 2024 Team Status: Inactive Member Role/Relationship Status Dates Galina Horner HEALTH POLICY ANALYST, HEALTH POLICY ANALYST-C Primary Care Provider Active Start: October 22, 2024 End: October 22, 2024 Galina Horner HEALTH POLICY ANALYST, HEALTH POLICY ANALYST-C Referring Provider Active Start: October 22, 2024 End: October 22, 2024 Carmella Deluca HEALTH POLICY ANALYST-C Attending Provider Active Start: October 22, 2024 End: October 22, 2024 Team Status: Inactive Member Role/Relationship Status Dates Galina Horner HEALTH POLICY ANALYST, HEALTH POLICY ANALYST-C Primary Care Provider Active Start: October 22, 2024 End: October 22, 2024 Dr. Charles Ramos MD Attending Provider Active S tart: October 22, 2024 End: October 22, 2024 Team Status: Inactive Member Role/Relationship Status Dates Galina Horner HEALTH POLICY ANALYST, HEALTH POLICY ANALYST-C Primary Care Provider Active Start: September 22, 2024 End: September 22, 2024 Galina Horner HEALTH POLICY ANALYST, HEALTH POLICY ANALYST-C Attending Provider Active Start: September 22, 2024 End: September 22, 2024 Team Status: Inactive Member Role/Relationship Status Dates Dr. Payam Reyna MD Referring Provider Active Start: September 24, 2024 End: September 24, 2024 Carmella Deluca HEALTH POLICY ANALYST-C Attending Provider Active Start: September 24, 2024 End: September 24, 2024 Galina Horner HEALTH POLICY ANALYST, HEALTH POLICY ANALYST-C Primary Care Provider Active Start: September 24, 2024 End: September 24, 2024 Team Status: Inactive Member Role/Relationship Status Dates Galina Horner HEALTH POLICY ANALYST, HEALTH POLICY ANALYST-C Primary Care Provider Active Start: September 24, 2024 End: September 24, 2024 Dr. Charles aRmos MD Attending Provider Active S tart: September 24, 2024 End: September 24, 2024 Team Status: Active Member Role/Relationship Status Dates Galina Horner HEALTH POLICY ANALYST, HEALTH POLICY ANALYST-C Primary Care Provider Active Start: October 04, 2024 Payam POPE MD Attending Provider Active Start: October 04, 2024 Team Status: Active Member Role/Relationship Status Dates Galina Horner HEALTH POLICY ANALYST, HEALTH POLICY ANALYST-C Primary Care Provider Active Start: October 13, 2024 Carmella Deluca HEALTH POLICY ANALYST-C Attending Provider Active Start: October 13, 2024 Carmella Deluca HEALTH POLICY ANALYST-C Referring Provider Active Start: October 13, 2024 Team Status: Inactive Member Role/Relationship Status Dates Galina Horner HEALTH POLICY ANALYST, HEALTH POLICY ANALYST-C Primary Care Provider Active Start: October 22, 2024 End: October 22, 2024 Galina Horner HEALTH POLICY ANALYST, HEALTH POLICY ANALYST-C Referring Provider Active Start: October 22, 2024 End: October 22, 2024 Carmella Deluca NP-C Attending Provider Active Start: October 22, 2024 End: October 22, 2024 Team Status: Inactive Member Role/Relationship Status Dates Galina Horner HEALTH POLICY ANALYST, HEALTH POLICY ANALYST-C Primary Care Provider Active Start: October 22, [...] End: August 12, 2024 Galina Horner NP, HEALTH POLICY ANALYST-C Attending Provider Active Start: August 12, 2024 End: August 12, 2024 Team Status: Inactive Member Role/Relationship Status Dates Dr. Payam Reyna MD Primary Care Provider Active Start: August 13, 2024 End: August 13, 2024 Dr. Payam Reyna MD Referring Provider Active Start: August 13, 2024 End: August 13, 2024 Carmella Deluca NP-C Attending Provider Active Start: August 13, 2024 End: August 13, 2024 Team Status: Inactive Member Role/Relationship Status Dates Dr. Payam Reyna MD Primary Care Provider Active Start: August 13, 2024 End: August 13, 2024 Dr. Charles Ramos MD Attending Provider Active S tart: August 13, 2024 End: August 13, 2024 Team Status: Inactive Member Role/Relationship Status Dates Galina Horner HEALTH POLICY ANALYST, HEALTH POLICY ANALYST-C Primary Care Provider Active Start: August 16, 2024 End: August 16, 2024 Galina Horner HEALTH POLICY ANALYST, HEALTH POLICY ANALYST-C Attending Provider Active Start: August 16, 2024 [...] Inactive Member Role/Relationship Status Dates Galina Horner HEALTH POLICY ANALYST, HEALTH POLICY ANALYST-C Primary Care Provider Active Start: September 14, 2024 Dr. Hiwot Abdullahi MD Attending Provider Active Start: September 14, 2024 Team Status: Inactive Member Role/Relationship Status Dates Dr. Sung Torres DO Attending Provider Active Start: September 14, 2024 End: September 14, 2024 Dr. Sung Torres DO Emergency Provider Active Start: September 14, 2024 End: September 14, 2024 Galina Horner HEALTH POLICY ANALYST, HEALTH POLICY ANALYST-C Primary Care Provider Active Start: September 14, 2024 End: September 14, 2024 Team Status: Inactive Member Role/Relationship Status Dates Galina Horner HEALTH POLICY ANALYST, HEALTH POLICY ANALYST-C Primary Care Provider Active Start: September 20, 2024 End: September 20, 2024 Galina Horner HEALTH POLICY ANALYST, HEALTH POLICY ANALYST-C Attending Provider Active Start: September 20, 2024 End: September 20, 2024 Team Status: Inactive Member Role/Relationship Status Dates Galina Horner HEALTH POLICY ANALYST, HEALTH POLICY ANALYST-C Primary Care Provider Active Start: September 22, 2024 End: September 22, 2024 Galina Horner HEALTH POLICY ANALYST, HEALTH POLICY ANALYST-C Attending Provider Active Start: September 22, 2024 End: September 22, 2024 Team Status: Inactive Member Role/Relationship Status Dates Dr. Payam Reyna MD Referring Provider Active Start: September 24, 2024 End: September 24, 2024 Carmella Deluca NP-C Attending Provider Active Start: September 24, 2024 End: September 24, 2024 Galina Horner HEALTH POLICY ANALYST, HEALTH POLICY ANALYST-C Primary Care Provider Active Start: September 24, 2024 End: September 24, 2024 Team Status: Inactive Member Role/Relationship Status Dates Galina Horner HEALTH POLICY ANALYST, HEALTH POLICY ANALYST-C Primary Care Provider Active Start: September 24, 2024 End: September 24, 2024 Dr. Charles Ramos MD Attending Provider Active S tart: September 24, 2024 End: September 24, 2024 Team Status: Active Member Role/Relationship Status Dates Galina Horner HEALTH POLICY ANALYST, HEALTH POLICY ANALYST-C Primary Care Provider Active Start: October 04, 2024 Payam POPE MD Attending Provider Active Start: October 04, 2024 Team Status: Active Member Role/Relationship Status Dates Galina Horner HEALTH POLICY ANALYST, HEALTH POLICY ANALYST-C Primary Care Provider Active Start: October 13, 2024 Carmella Deluca HEALTH POLICY ANALYST-C Attending Provider Active Start: October 13, 2024 Carmella Deluca HEALTH POLICY ANALYST-C Referring Provider Active Start: October 13, 2024 Team Status: Inactive Member Role/Relationship Status Dates Galina Horner HEALTH POLICY ANALYST, HEALTH POLICY ANALYST-C Primary Care Provider Active Start: October 22, 2024 End: October 22, 2024 Galina Horner HEALTH POLICY ANALYST, HEALTH POLICY ANALYST-C Referring Provider Active Start: October 22, 2024 End: October 22, 2024 Carmella Deluca HEALTH POLICY ANALYST-C Attending Provider Active Start: October 22, 2024 End: October 22, 2024 Team Status: Inactive Member Role/Relationship Status Dates Galina Horner HEALTH POLICY ANALYST, HEALTH POLICY ANALYST-C Primary Care Provider Active Start: October 22, 2024 End: October 22, 2024 Dr. Charles Ramos MD Attending Provider Active S tart: October 22, 2024 End: October 22, 2024 Team Status: Active Member Role/Relationship Status Dates Galina Horner HEALTH POLICY ANALYST, HEALTH POLICY ANALYST-C Primary Care Provider Active Start: November 01, 2024 Payam POPE MD Attending Provider Active Start: November 01, 2024 Team Status: Inactive Member Role/Relationship Status Dates Galina Horner HEALTH POLICY ANALYST, HEALTH POLICY ANALYST-C Primary Care Provider Active Start: November 02, 2024 End: November 02, 2024 Dr. Payam Reyna MD Attending Provider Active Start: November 02, 2024 End: November 02, 2024 Team Status: Active Member Role/Relationship Status Dates Galina Horner HEALTH POLICY ANALYST, HEALTH POLICY ANALYST-C Primary Care Provider Active Start: November 03, 2024 Payam POPE MD Attending Provider Active Start: November 03, 2024 Team Status: Inactive Member Role/Relationship Status Dates Galina Horner NP, NP-C Primary Care Provider Active Start: November 22, 2024 End: November 22, 2024 Galina Horner NP, NP-C Referring Provider Active Start: November 22, 2024 End: November 22, 2024 OLIVE Frank Attending Provider Active Start: November 22, 2024 End: November 22, 2024 Brokerage Manager Relationship Specialty Start Date End Date Payam Reyna MD [address] [place] [place] [address] PCP - General Internal Medicine 02/24/23 Sal Bonilla DO [address] [place], [place] [address] Hematology/Oncology 03/22/22 Goals (unrecognized section and content) [...] at 09 Given 06/18/2023 9:16 AM EDT 6 mg [...] BE BASED ON THE PRIMARY CLINICAL RECORDS. [employer] [facility]. provides no warranty or guarantee of the accuracy or completeness of information in this document.
[2024-11-29 08:29] LABS: Hematocrit 32.6 % (37-47); Hemoglobin 11.1 g/dL (12.0-15.0); Immature Granulocytes Count 0.020 X10^3/uL (0.0-0.0); Mean Corp Hgb Conc 34.0 g/dL (32-36); Mean Corpuscular Volume 106.2 fL (81-99); Mean Platelet Vol. 10.3 fl (6.2-12.0); NRBC Flagged by Analyzer 0 % (0-5); Platelet Count 101 K/mm3 (150-450); RBC Distribution Width CV 14.8 % (11.6-14.6); RBC Distribution Width SD 57.6 fl (35.1-43.9); Red Blood Count 3.07 M/mm3 (4.2-5.4); White Blood Count 4.9 K/mm3 (4.4-11.0)
[2024-11-29 09:11] LABS: AST(SGOT) 32 U/L (<=31); Alanine Aminotransfer ALT/SGPT 36 U/L (<=34); Albumin, Serum 3.0 g/dL (3.4-4.8); Alkaline Phosphatase 56 U/L (35-104); Anion Gap 9 (5-15); BUN 16 mg/dL (4-19); BUN/Creat Ratio 25.7 RATIO (10-20); Calcium,Total 8.9 mg/dL (7.6-11.0); Carbon Dioxide 24.2 mmol/L (21.0-32.0); Chloride 107 mmol/L (98-108); Cholesterol 173 mg/dL (<=200); Globulin 2.8 g/dL (2.2-4.2); Glucose 73 mg/dL (70-99); Low Density Lipoprotein Calc. 96 mg/dL; Potassium 4.1 mmol/L (3.3-5.1); Triglycerides 89 mg/dL; Very Low Density Lipoprotein 18 mg/dL (5-40); Vitamin D,25 Hydroxy 33.7 ng/mL (30-100); cholesterol:hdl ratio screen 2.95
== END ==
LOC: OLS.WHLTSB 05:00
PROVIDERS: PCP Nurse Practitioner Adult Health; Visit Provider Internal Medicine
DX: I49.9 Cardiac arrhythmia, unspecified (principal); E55.9 Vitamin D deficiency, unspecified
CPT/HCPCS: 36415; 80053; 80061; 82306; 85025

== ENCOUNTER → 2025-01-03 04:50 | Outpatient (REF) | payer MEDICARE, BC, SELFPAY ==
[2025-01-03 07:03] LABS: Hematocrit 34.6 % (37-47); Hemoglobin 11.7 g/dL (12.0-15.0); Immature Granulocytes Count 0.040 X10^3/uL (0.0-0.0); Mean Corp Hgb Conc 33.8 g/dL (32-36); Mean Corpuscular Volume 106.5 fL (81-99); Mean Platelet Vol. 10.3 fl (6.2-12.0); NRBC Flagged by Analyzer 0 % (0-5); Platelet Count 105 K/mm3 (150-450); RBC Distribution Width CV 14.4 % (11.6-14.6); RBC Distribution Width SD 55.8 fl (35.1-43.9); Red Blood Count 3.25 M/mm3 (4.2-5.4); White Blood Count 6.1 K/mm3 (4.4-11.0)
[2025-01-03 07:21] LABS: AST(SGOT) 37 U/L (<=31); Alanine Aminotransfer ALT/SGPT 43 U/L (<=34); Albumin, Serum 3.4 g/dL (3.4-4.8); Alkaline Phosphatase 65 U/L (35-104); Anion Gap 9 (5-15); BUN 14 mg/dL (4-19); BUN/Creat Ratio 24.2 RATIO (10-20); Calcium,Total 8.9 mg/dL (7.6-11.0); Carbon Dioxide 24.7 mmol/L (21.0-32.0); Chloride 105 mmol/L (98-108); Globulin 3.0 g/dL (2.2-4.2); Glucose 82 mg/dL (70-99); Potassium 3.9 mmol/L (3.3-5.1)
== END ==
LOC: OLS.WHLTSB 04:50
PROVIDERS: PCP Nurse Practitioner Adult Health; Referring Provider Internal Medicine; Visit Provider Internal Medicine
DX: I49.9 Cardiac arrhythmia, unspecified (principal)
CPT/HCPCS: 36415; 80053; 85025

== ENCOUNTER → 2025-01-31 | Outpatient (REF) | payer MEDICARE, BC, SELFPAY ==
[2025-01-31 08:10] LABS: Hematocrit 35.1 % (37-47); Hemoglobin 11.9 g/dL (12.0-15.0); Immature Granulocytes Count 0.030 X10^3/uL (0.0-0.0); Mean Corp Hgb Conc 33.9 g/dL (32-36); Mean Corpuscular Volume 108.0 fL (81-99); Mean Platelet Vol. 10.1 fl (6.2-12.0); NRBC Flagged by Analyzer 0 % (0-5); Platelet Count 104 K/mm3 (150-450); RBC Distribution Width CV 14.4 % (11.6-14.6); RBC Distribution Width SD 57.0 fl (35.1-43.9); Red Blood Count 3.25 M/mm3 (4.2-5.4); White Blood Count 5.4 K/mm3 (4.4-11.0)
[2025-01-31 08:32] LABS: AST(SGOT) 49 U/L (<=31); Alanine Aminotransfer ALT/SGPT 31 U/L (<=34); Albumin, Serum 3.0 g/dL (3.4-4.8); Alkaline Phosphatase 56 U/L (35-104); Anion Gap 11 (5-15); BUN 14 mg/dL (4-19); BUN/Creat Ratio 23.2 RATIO (10-20); Calcium,Total 9.1 mg/dL (7.6-11.0); Carbon Dioxide 19.2 mmol/L (21.0-32.0); Chloride 106 mmol/L (98-108); Globulin 3.4 g/dL (2.2-4.2); Glucose 64 mg/dL (70-99); Potassium 4.6 mmol/L (3.3-5.1)
== END ==
LOC: OLS.WHLTSB 05:00
PROVIDERS: PCP Nurse Practitioner Adult Health; Visit Provider Internal Medicine
DX: I49.9 Cardiac arrhythmia, unspecified (principal)
CPT/HCPCS: 36415; 80053; 85025

== ENCOUNTER → 2025-02-28 04:00 | Outpatient (REF) | payer MEDICARE, BC, SELFPAY ==
--- OUTSIDE RECORDS SUMMARY | 2025-02-28 03:36 | XMS RPT_ITS | CCD ---
Author Organization [facility] Inform ion Partnership [facility] Care Team Providers Care Associate Professor Of Psychology Name Role Phone Galina Iraheta MD Primary Care Provider 13, Pharmacist Unavailable Galina Iraheta MD Primary Care Provider Dr. Galina Iraheta Primary Care Provider Tickton [employer]AYER'S HELPER, [employer]ER[employer]S HELPER-C Galina Attending Provider BASILIA Jerome Attending Unavailable GALINA IRAHETA Referring Unavailable GALINA IRAHETA Primary Care Unavailable BASILIA HERNÁNDEZ Attending Unavailable JAYDE HEBERT Referring Unavailable GALINA IRAHETA Primary Care Unavailable Dr. Galina Iraheta Primary Care Provider Tickton [employer]'S HELPER, [employer]ER[employer]S HELPER-C Galina Attending Provider Galina Pedro MD Primary Care Provider Masci Sal SEWELL Unavailable Dr. Galina Iraheta Primary Care Provider Tickton [employer]S HELPER, [employer]ER[employer]S HELPER-C Galina Attending Provider Dr. Galina Pedro Primary Care Provider Tickton [employer]'S HELPER, [employer] F[employer] LAYER'S HELPER-C Galina Attending Provider Galina Pedro MD Primary Care Provider Dr. Galina Iraheta Primary Care Provider Tickton [employer]ER'S HELPER, [employer] F[employer] LAYER'S HELPER-C Galina Attending Provider Dr. Galina Pedro Primary Care Provider Tickton [employer]AYER[employer]S HELPER, [employer]AYER[employer]S HELPER-C Galina Attending Provider Reji Reyna MD Primary Care Provider Dr. Galina Iraheta Primary Care Provider Siri [employer]S HELPER, [employer]ER[employer]S HELPER-C Galina Attending Provider Dr. Galina Iraheta Primary Care Provider Siri [employer]S HELPER, [employer]S HELPER-C Galina Attending Provider Maribell PANG, Reji Hilario Primary Care Provider Maribell PANG, Reji Hilario Primary Care Provider Galina Iraheta MD Primary Care Provider 13, Pharmacist Unavailable Alistair PANG, Dr. Mojica Primary Care Provider Maribell PANG, Reji Attending Provider Unavailtasia Reyna MD, Reji Referring Provider Armando Horner [employer] LAYER'S HELPER-CGalina Attending Provider Alistair PANG, Dr. Mojica Primary Care Provider Maribell PANG, Reji Attending Provider Unavailtasia Reyna MD, Dr. Hare [...] Reyna MD, Reji Referring Provider Unavailtasia Parham NP-CJuliet Attending Provider Dr. Galina Iraheta MD Primary Care Provider Reji Reyna MD Attending Provider Unavaila marcelino Tickamalia [employer]S HELPER-C, Galina Attending Provider Dr. Sung Torres DO Emergency Provider Tickton [employer] HELPER-C, [facility] Primary Care Provider Dr. Sung Torres DO Attending Provider Alistair PANG, Dr. Mojica Primary Care Provider Maribell PANG, Reji Attending Provider Unavaila marcelino Horner [employer] HELPER-C, [facility] Primary Care Provider Alistair PANG, Dr. Mojica Primary Care Provider Maribell PANG, Reji Attending Provider Unavailtasia Abdullahi MD, Dr. Mi Attending Provider Bradly PANG, Dr. Mi Referring Provider Yosi [employer] HELPER-C, Carmella Referring Provider Tickamalia [employer] HELPER-C, Galina Referring Provider Bradly PANG, Dr. Mi Attending Provider Bradly PANG, Dr. Mi Referring Provider Alistair PANG, Dr. Mojica Primary Care Provider Reji Reyna MD Attending Provider Unavailtasia Reyna MD, Dr. Hare Attending Provider Maribell PANG, Dr. Hare Primary Care Physician Maribell PANG, Dr. Hare Referring Provider Yosi PRECIADO-CCarmella Attending Physician Richard PANG, Dr. Soto Attending Physician Reji Reyna MD Attending Physician Unavail able Prasad [employer] HELPER-C, Juliet Attending Physician Tickton [employer] HELPER-C, [facility] Primary Care Physician Bradly PANG, Dr. Mi Attending Physician Dr. Sung Torres DO Attending Physician Dr. Sung Torres DO Emergency Department Physic qi Siri [employer] HELPER-C, Galina Attending Physician Maribell PANG, Dr. Hare Attending Physician OLEGHE, EFEWONGBE B Primary Care Unavailable ARREOLA, CASSIDY Referring Unavailable SELF Referring Unavailable OLEGHE, EFEWONGBE B Primary Care Unavailable RAYTHALIA Attending Unavailable SELF Referring Unavailable OLEGHE, EFEWONGBE B Primary Care Unavailable SELF Referring Unavailable OLEGHE, EFEWONGBE B Primary Care Unavailable RAY THALIA Attending Unavailable OLEGHE, EFEWONGBE B Primary Care Unavailable ARREOLA, CASSIDY Referring Unavailable OLEGHE, EFEWONGBE B Primary Care Unavailable ARREOLA, CASSIDY Attending Unavailable ARREOLA, CASSIDY Referring Unavailable OLEGHE, EFEWONGBE B Primary Care Unavailable OLEGHE, EFEWONGBE B Primary Care Unavailable RAY THALIA Attending Unavailable SELF Referring Unavailable OLEGHE, [...] Primary Care Unavailable ARREOLA, CASSIDY Referring Unavailable Oleghe OLS, Efewongbe Referring Unavailabl e Oleghe OLS, Efewongbe Attending Unavailabl e Siri [employer]S HELPER, [facility] Primary Care Unavailable Oleghe OLS, Efewongbe Attending Unavailabl e Ganta, Galina Primary Care Unavailable Oleghe OLS Efewongbe Attending Unavailabl e Tickton [employer]S HELPER, [facility] Primary Care Unavailable Oleghe OLS, Efewongbe Attending Unavailabl e Tickton [employer]'S HELPER, [facility] Primary Care Unavailable Carmella Deluca Attending Unavailable Carmella Deluca Referring Unavailable Tickton [employer]ER'S HELPER, [facility] Primary Care Unavailable Oleghe OLS, Efewongbe Referring Unavailabl e Oleghe OLS, Efewongbe Attending Unavailabl e Ganta, Galina Primary Care Unavailable Oleghe OLS, Efewongbe Attending Unavailabl e Ganta, Galina Primary Care Unavailable Oleghe OLS, Efewongbe Attending Unavailabl e Ganta, Galina Primary Care Unavailable Oleghe OLS, Efewongbe Attending Unavailabl e Tickton [employer] LAYER'S HELPER, [facility] Primary Care Unavailable Oleghe OLS, Efewongbe [...] Oleghe OLS, Efewongbe Attending Unavailabl e Tickton [employer] LAYER'S HELPER, [facility] Primary Care Unavailable Oleghe OLS, Efewongbe Attending Unavailabl e Ganta, Galina Primary Care Unavailable Oleghe OLS, Efewongbe Attending Unavailabl e Ganta, Galina Primary Care Unavailable Oleghe OLS, Efewongbe Attending Unavailabl e Oleghe, Efewongbe Primary Care Unavailable Tickton [employer] LAYER'S HELPER, [facility] Primary Care Unavailable Charles Ramos Attending Unavailable Tickton [employer] LAYER'S HELPER, Galina Attending Unavailable Tickton [employer]LO[employer] LAYER'S HELPER, [facility] Primary Care Unavailable Tickton [employer]LO[employer] LAYER'S HELPER, Galina Primary Care Unavailable Oleghe, Efewongbe Attending Unavailable Oleghe OLS, Efewongbe Attending Unavailabl e Ganta, Galina Primary Care Unavailable Sung Torres Attending Unavailable Tickton [employer] LAYER'S HELPER, [facility] Primary Care Unavailable Oleghe, Efewongbe Primary Care Unavailable Hiwot Abdullahi Attending Unavailable Hiwot Abdullahi Referring Unavailable Tickton [employer] LAYER'S HELPER, Galina Referring Unavailable Hiwot Abdullahi Attending Unavailable Tickton [employer] LAYER'S HELPER, Galina Primary Care Unavailable Oleghe OLS, Efewongbe Attending Unavailabl e Ganta, Galina Primary Care Unavailable Tickton [employer] LAYER'S HELPER, Galina Attending Unavailable Tickton [employer] FLO[employer] LAYER'S HELPER, Galina Primary Care Unavailable Tickton [employer] FLO[employer] LAYER'S HELPER, Galina Attending Unavailable Ganta, Galina Primary Care Unavailable Charles Ramos Attending Unavailable Oleghe, Efewongbe Primary Care Unavailable Carmella Deluca Attending Unavailable Oleghe, Efewongbe Primary Care Unavailable Oleghe, Efewongbe Referring Unavailable RichardCharles Attending Unavailable Oleghe, Efewongbe Primary Care Unavailable Ganta, Galina Primary Care Unavailable Oleghe, Efewongbe Attending Unavailable Oleghe, Efewongbe Primary Care Unavailable Juliet Parham Attending Unavailable Oleghe, Efewongbe Referring Unavailable RichardCharles Attending Unavailable Oleghe, Efewongbe Primary Care Unavailable Tickton [employer] FLO[employer] LAYER'S HELPER, Galina Attending Unavailable Oleghe, Efewongbe Primary Care Unavailable Carmella Deluca Attending Unavailable Tickton [employer] FLO[employer] LAYER'S HELPER, Galina Primary Care Unavailable Oleghe, Efewongbe Referring Unavailable Tickton [employer] FLOOR LAYER'S HELPER, Galina Primary Care Unavailable RichardLance gillril Attending Unavailable Tickton [employer] LAYER'S HELPER, Galina Attending Unavailable Tickton [employer] FLOOR LAYER'S HELPER, Galina Primary Care Unavailable Tickton [employer] FLOOR LAYER'S HELPER, Galina Referring Unavailable Tickton [employer] FLO[employer] LAYER'S HELPER, Galina Primary Care Unavailable Juliet Parham Attending Unavailable Tickton [employer] LAYER'S HELPER, Galina Attending Unavailable Tickton [employer] FLOOR LAYER'S HELPER, [facility] Primary Care Unavailable Carmella Deluca Attending Unavailable Tickton [employer] FLOOR LAYER'S HELPER, Galina Referring Unavailable Tickton [employer] FLOOR LAYER'S HELPER, [facility] Primary Care Unavailable Oleghe, Efewongbe Referring Unavailable Carmella Deluca Attending Unavailable Oleghe, Efewongbe Primary Care Unavailable Carmella Deluca Attending Unavailable Oleghe, Efewongbe Primary Care Unavailable Oleghe, Efewongbe Referring Unavailable Allergies Allergy Classification Reported Allergen(s) Allergy Type Date of Onset Reaction(s) Facility (20 sources) Angiotensin-converting enzyme inhibitor agent; Translations: [DESMOND INHIBITORS] Drug Intolerance 005 Cough [facility] (20 sources) Cephalexin; Translations: [CEPHALEXIN] Drug Allergy Other: See Comments, Contraindicat ion-[facility] (20 sources) Clindamycin; Translations: [CLINDAMYCIN] Drug Allergy Other: See Comments, Contraindicat ion-[facility] (20 sources) cyclobenzaprine; Translations: [CYCLOBENZAPRINE] Drug Allergy Contraindicat ion-[facility] (20 sources) Diclofenac / miSOPROStol; Translations: [DICLOFENAC-MISOPROSTO L] Drug Allergy Diarrhea [facility] (20 sources) hydroCHLOROthiazide; Translations: [HYDROCHLOROTHIAZIDE] Drug Allergy Mental Status Change [facility] (20 sources) Lisinopril; Translations: [LISINOPRIL] Drug Allergy Unknown [facility] (20 sources) metroNIDAZOLE; Translations: [METRONIDAZOLE HCL] Drug Allergy Mental Status Change, Shortness of Breath [facility] (20 sources) Naproxen; Translations: [NAPROXEN] Drug Allergy Other: See Comments [facility] (20 sources) Naproxen; Translations: [NAPROXEN SODIUM] [facility] ([facility] sources) oxybutynin; Translations: [OXYBUTYNIN] Drug Allergy Other: See Comments [facility] (20 sources) PARoxetine; Translations: [PAROXETINE] Drug Allergy Contraindicat [facility] (20 sources) prednisoLONE / Sulfacetamide; Translations: [SULFACETAMIDE-PREDNIS OLONE] Drug Allergy 011 Cough [facility] (20 sources) Sulfonamides (Antibiotic); Translations: [SULFA (SULFONAMIDE ANTIBIOTICS)] Drug Allergy 016 Unknown [facility] Work Phone: (20 sources) adhesives [Other] Propensity to adverse reactions Other: See Comments [facility] (20 sources) Adhesive agent; Translations: [adhesive] Allergy to substance Unknown [facility] (20 sources) cyclobenzaprine; Translations: [cyclobenzaprine HCl] Drug Allergy Unknown [facility] (20 sources) Diclofenac; Translations: [diclofenac sodium] Drug Allergy Unknown [facility] (20 sources) metroNIDAZOLE Drug Allergy Unknown [facility] (20 sources) miSOPROStol Drug Allergy Unknown [facility] (20 sources) PARoxetine; Translations: [paroxetine HCl] Drug Allergy Unknown [facility] (20 sources) prednisoLONE; Translations: [prednisolone acetate] Drug Allergy Unknown [facility] (20 sources) Sulfacetamide; Translations: [sulfacetamide sodium] Drug Allergy Unknown [facility] (20 sources) Angiotensin-converting enzyme inhibitor agent Drug Intolerance 005 Cough [facility] (20 sources) Angiotensin Converting Enzyme (Desmond) Inhibitors Allergy to substance Unknown [facility] Comment on above: ERROR (1 source) OTHER; Translations: [OTHER] Propensity to adverse reactions (disorder) 008 [facility] Other [place] [facility] (18 sources) Hydroxychloroquine; Translations: [HYDROXYCHLOROQUINE] Drug Allergy 024 Rash [facility] (1 source) Angiotensin Converting Enzyme (Desmond) Inhibitors Drug allergy (disorder) [facility] Rep[facility] (1 source) hydroCHLOROthiazide Drug Allergy [facility] (1 source) Lisinopril Drug Allergy [facility] (1 source) metroNIDAZOLE Drug Allergy [facility] (1 source) miSOPROStol Drug Allergy [facility] (1 source) Naproxen Drug Allergy [facility] Rep[facility] Medications Current Medications Medication Drug [...] above: Take 1 tablet by natalie every 8 hours as needed for pain [...] on above: Take 5,000 mcg by mo [facility] once daily. Calcium (4 sources) Phosphate Binder, Calcium take 600 mg by mouth twice daily CALCIUM ORAL Take 600 mg by mouth two times a day. Active calcium ascorbate 500 mg oral tablet (10 sources) Start: 09-24-2024 take 1 tablet by mouth once daily Calcium Carb And Citrat-Mag Ox (20 sources) [...] 12:00am calcium carbonate 1500 mg oral tablet (10 sources) Start: 09-24-2024 take 1 tablet by mouth twice daily calcium carbonate 1250 mg / cholecalciferol 200 unt oral tablet (20 sources) Vitamin D Start: 2021 End: 09-07-2021 take 1 tablet by mouth once daily calcium-carbona te-vitamin D3 500 mg-5 mcg (200 unit) per [...] Take 1 tablet by natalie once daily. Bjnippl-Knz-Ghh Q3-X8-Jbyeykfq (Citracal Plus) 367-71-5-125 sr-cg-ex-unit Tablet (20 sources) Start: 08-20-2021 take 1 tablet by mouth twice daily Ciatifo-Evh-Keb M5-B8-Btejbeox (Citracal Plus) 251-07-4-125 sd-po-pz-unit Tablet Active 1 TABLET PO TWICE A DAY August 20, 2021 8:15am Start: 08-20-2021 End: 08-13-2024 Dabmmzb-Feq-Oly P3-K6-Gaupbx ls (Citracal Plus) 766-02-8-125 xu-bk-gw-unit Tablet Discontinued 1 {tbl} PO TWICE A DAY August 20, 2021 12:00am August 13, 2024 2:28pm Start: 08-20-2021 Xpwsxrr-Fnd-Id t L7-Q4-Wmzigewm (Citracal Plus) 400-45-5-125 ir-fg-ph-unit Tablet Active 1 {tbl} PO TWICE A DAY August 20, 2021 12:00am Start: 08-20-2021 take 1 tablet by natalie twice daily Vcxffra-Ria-Zkh M9-P6-Mngqttnp (Citracal Plus) 546-87-2-125 aq-lf-xg-unit Tablet Active 1 TABLET PO TWICE A DAY August 19, 2021 11:00pm Start: 08-20-2021 take 1 tablet by natalie twice daily Gzuhbck-Ohu-Gyo M2-D7-Irgnqrqv (Citracal Plus) 992-75-3-125 sw-wu-md-unit Tablet Active 1 TABLET PO TWICE A DAY August 20, 2021 12:00am carboxymethylcellulose sodiu m 10 mg/ml ophthalmic solution (20 sources) Start: 09-07-2024 Start: 08-13-2024 End: 09-07-2024 take 1 drop(s) [...] take 1 capsule by mouth once daily Start: 08-20-2021 End: 09-07-2024 take 1 tablet by mouth once daily Cholecalciferol (Vitamin D3) (Vitamin D3) 25 mcg (1,000 unit) Tablet,Chewable Discontinued 25 ug PO DAILY August 20, 2021 12:00am September 07, 2024 2:59pm take 2 tablets by mo ut twice daily cholecalciferol (VITAMIN D-3) 400 unit [...] take 1 capsule by mouth once daily Start: 08-13-2024 End: 09-07-2024 take 1 tablet [...] (20 sources) RANK Ligand Inhibitor Start: 09-07-2024 Start: 08-27-2024 End: 08-22-2025 denosumab 60 mg [...] (20 sources) Nonsteroidal Anti-inflammatory Drug Start: 03-26-2018 Start: 05-09-2017 End: 02-24-2024 diclofenac sodium (VOLTAREN) 1 % topical gel Apply 4 g to affected area as needed. 1 Tube 5 05/09/2017 03/06/2022 Discontinued Comment on above: Apply 4 g to affecte d area as needed. docusate sodium 50 mg / sennosides, custodial 8.6 mg oral capsule (20 sources) Start: 09-07-2024 Start: 03-06-2022 End: 09-07-2024 Sennosides-Docusate Sodium ( [...] contrast guidelines 1 Each 02/24/2024 02/25/2024 Active estradiol 0.1 mg/ml vaginal cream (20 sources) Estrogen Start: 11-22-2024 Start: 03-21-2023 End: 08-13-2024 Estradiol (Estrace) 0.01 [...] take 1 tablet by mouth once daily Comment on above: Take 324 mg by [...] Comment on above: Take 1 tablet by [facility] once daily for 1 day. fluticasone propionate 0.05 mg/actuat metered dose nasal spray (20 sources) Corticosteroid Start: 2 End: 5 take 50 ug nasal route once daily Start: 08-20-2021 Fluticasone Pr opionate (Flonase Allergy Relief) 50 mcg/actuation [place],Suspension Active 1 SPRAY INTRANASAL DAILY August 20, 2021 12:00am take 2 spray(s) nasa l route once daily fluticasone (FLONASE) 50 mcg/actuation nasal spray Use 2 Sprays in each nostril once daily. Active Comment on above: Use 2 Sprays in each nostril once daily. Glucos Sul 6ykg-Iuj-Oymmz-C-Mn (Glucosamine Chondroitin) 550-30-1 mg Capsule (13 sources) Start: 08-20-2021 take 1 capsule by mouth at bedtime Glucos Sul 2uni-Nzv-Pwprd-C-M n (Glucosamine Chondroitin) 550-30-1 mg Capsule Active 1 CAP PO AT BEDTIME August 20, 2021 8:15am Start: 08-20-2021 take 1 capsule by [facility] at bedtime Glucos Sul 7hgz-Wzc-Pevlh-C-Mn (Glucosamine Chondroitin) 550-30-1 mg Capsule Active 1 CAP PO AT BEDTIME August 19, 2021 11:00pm Start: 08-20-2021 take 1 capsule by [facility] at bedtime Glucos Sul 3htm-Ore-Qdjgu-C-Mn (Glucosamine Chondroitin) 550-30-1 mg Capsule Active 1 [...] August 30, 2014 12:00am levothyroxine sodium 0.025 m g oral capsule (20 sources) l-Thyroxine Start: 08-20-2021 End: 09-07-2024 take 1 capsule by mouth once daily Start: 03-14-2021 take 1 tablet by natalie once daily for thyroid dysfunction levothyroxine (LEVOXYL) [...] (Erroneous entry) take 2 tablets by mo ut once daily METHYLCELLULOSE (CITRUCEL ORAL) Take 2 tablets by mouth once daily. 0 Active Comment on above: Take 2 tablets by mo uth once daily. Multivitamin With Folic Acid (Thera) [...] 2021 11:00pm OLANZapine 2.5 mg oral tablet (10 sources) Atypical Antipsychotic Start: 09-24-2024 take 1 tablet by mouth at bedtime omeprazole 40 mg delayed release oral capsule (20 sources) Proton Pump Inhibitor Start: 09-07-2024 take 1 capsule by mouth once daily Start: 08-20-2021 End: 09-07-2024 take 2 capsules [...] mo uth once daily. polyethylene glycol 3350 86575 mg powder for oral solution (20 sources) Osmotic Laxative Start: 08-13-2024 take 17 g by mouth once daily as needed Start: 08-13-2024 End: 11-14-2023 take 17 g [...] Start: 09-07-2024 take 5 mg by mouth o nce daily as needed Start: 08-27-2024 take 3 tablets by [facility] once daily predniSONE (DELTASONE) 5 mg [...] take 9 mg by mouth once daily GA EDNISONE ORAL Take 9 mg by mouth once daily. Active take 9 mg by mouth once daily GA EDNISONE ORAL Take 9 mg by mouth [...] 1 tablet by mouth four times daily Start: 09-20-2024 End: 11-12-2024 take 1 tablet [...] Start: 09-07-2024 take 1 tablet by natalie every six hours as needed Tramadol 25 [...] Start: 03-26-2018 Triamcinolone Acetonide (Nasacort Aq Nasal [place]) 1 SPRAY Nasal.Sry Active 2 SPRAY NASAL DAILY March 26, 2018 11:19am Start: 03-26-2018 Triamcinolone Acetonide (Nasacort Aq Nasal [place]) 1 SPRAY aerosol,spray Active 2 SPRAY NASAL NEEDED March 26, 2018 1:00am Start: 03-05-2016 End: 08-13-2024 Triamcinolone Acetonide (Ángel acort Aq Nasal [place]) 1 SPRAY aerosol,spray Discontinued 2 NMA NASAL [...] every six hours as needed for pain Start: 08-30-2014 take 1000 mg by mout [...] Tumor Necrosis Factor Nahun Start: 024 End: 024 adalimumab (HUMIRA,CF, PEN) 40 mg/0.4 mL pen kit Inject 40 mg (1 pen) subcutaneously every 2 weeks. 2 Each 5 07/04/2023 11/14/2023 Discontinued Comment on above: Inject 40 mg (1 pen) subcutaneously every 2 weeks. [id number] 200 actuat albuterol 0.09 mg/actuat metered dose [...] Comment on above: Take 1 tablet by nataile th twice daily. ascorbic acid 500 mg [...] Discontinued Start: 08-30-2014 take 1 capsule by [facility] once daily Docusate Sodium (Colace) 100 MG capsule Active 100 MG PO DAILY August 29, 2014 11:00pm Comment on above: Take 1 capsule by [facility] twice daily as needed for Constipation. escitalopram 10 mg oral tablet (20 sources) Serotonin Reuptake Inhibitor Start: 02-02-20 End: 09-08-19 take 1 tablet by mouth once daily Escitalopram Oxalate (Lexapro) 10 mg Tablet Discontinued 10 mg PO DAILY August 20, 2021 12:00am September 07, 2024 2:59pm Comment on above: Take 1 tablet by natalie th once daily. famotidine 40 mg oral tablet (1 source) Histamine-2 Receptor Antagonist Start: 05-05-19 End: 07-22-19 take 1 tablet by mouth once daily famotidine (PEPCID) 40 mg tablet Take 1 tablet by mouth once daily. 30 tablet 05/05/2020 07/21/2020 Discontinued ferrous sulfate 325 mg oral tablet (1 source) Start: 01-15-20 End: 02-29-20 take 1 tablet by mouth twice daily ferrous sulfate 325 mg (65 mg iron) tablet Take 1 tablet by mouth twice daily. 60 tablet 1 01/14/2021 02/28/2021 Comment on above: Take 1 tablet by natalie th twice daily. folic acid 1 mg oral tablet (5 sources) Start: 09-24-19 End: 01-31-20 take 3 tablets by mouth once daily [...] by mouth once daily glucosamine/msm/chondr oitin A (DUPTKVWEEIB-BHHISQ-UD M ORAL) Take 1 capsule by mouth once daily. 07/09/2021 Discontinued (Erroneous entry) End: 07-09-2021 take 1 capsule by mouth once daily glucosamine/msm/chondroitin A (TVOOGXULNGG-GTIJTR-NIV ORAL) Take 1 capsule by mouth once daily. 0 07/09/2021 Discontinued (Erroneous entry) take 1 capsule by mo [facility] once daily glucosamine/msm/chondroitin A (GLXTSLOIJGH-VGSUYU-QQO ORAL) Take 1 capsule by mouth once daily. 0 Active Comment on above: Take 1 capsule by mo ut once daily. guaiFENesin 20 mg/ml oral solution [...] needed. Handicapped placcard (20 sources) Start: 04-22-2022 Start: 04-22-[address] accard Active 0 .ROUTE .COMPLEX 1 0 April [...] Comment on above: Take 1 tablet by [facility] two times a day. inFLIXimab-abda [...] 1000 mg oral tablet (20 sources) Start: 2 End: 5 Methenamine Hippurate (Hiprex) 1 gram Tablet Discontinued 1 g PO TWICE A DAY March 06, 2022 1:00am August 13, 2024 2:29pm Comment on above: Take 1 tablet by natalie twice daily with meals. methotrexate 2.5 mg oral tablet (5 sources) Folate Analog Metabolic Inhibitor Start: 1 End: 1 take 7 tablets by mouth every week [...] EVERY MORNING as needed for attention disorder 0 September 20, 2024 1:04pm October 19, 2024 12:00am October 20, 2024 12:07am 1/2 tab (50mg) daily as needed. (No more than 5 days a week). Start: 10-18-2022 End: 11-16-2024 Modafinil 100 mg tablet Disc ontinued 100 mg PO As Directed 0 November 11, 2024 12:00am December 10, 2024 [...] 5 days. Take 1 capsule by mo [facility] twice daily for 10 days. perflutren lipid [...] 08/18/2021 Start: 06-17-2021 take 2 tablets by [facility] every eight hours as needed phenazopyridine (PYRIDIUM) 100 mg tablet Take 2 tablets by mouth three times daily as needed. 6 tablet 0 06/17/2021 Active Comment on above: Take 2 tablets by mo [facility] three times daily as needed. Take 1 tablet by [facility] three times daily as needed [...] 1 MG tablet Active 1.5 MG PO [facility] August 30, 2014 10:14am Start: 08-30-2014 Warfarin (Coum mary) 1 MG tablet Active 2 MG PO August 29, 2014 11:00pm Start: 08-30-2014 Warfarin (Coum mary (Pbkc)) 3 MG tablet Active 1 MG [facility] August 29, 2014 11:00pm Comment on above: [...] Classification Problem Date Documented Da te Episodic/Chronic Biliary tract disease (20 sources) Biliary colic; [...] fibrillation] Onset: 0 Resolved: 2 04-09-2021 Chronic Coagulation and hemorrhagic disorders (20 sources) [...] disease (2 sources) 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; Translations: [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] Onset: 5 [...] [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 11-23-2004 Chronic Inflammation; infection of eye (except that caused by tuberculosis or sexually transmitteddisease) (1 source) Other chronic allergic conjunctivitis; Translations: [Other chronic allergic conjunctivitis] Onset: 5 Chronic Malaise and fatigue (2 sources) Chronic fatigue, unspecified; Translations: [Chronic fatigue, unspecified] Onset: 5 Chronic Malaise and fatigue (20 sources) Fatigue; Translations: [Other fatigue] 10-26-2021 Episodic Menopausal disorders (20 sources) Atrophy of vagina; Translations: [Postmenopausal atrophic vaginitis] Onset: 8 Resolved: 5 07-27-2015 Chronic Mood disorders (20 sources) Mild depression; 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] Onset: 1 10-09-2020 Chronic Noninfectious gastroenteritis (1 source) Microscopic colitis, unspecified; Translations: [Microscopic colitis, unspecified] Onset: 5 Chronic Nonspecific chest pain (1 source) Chest pain; Translations: [Chest pain, unspecified] Episodic Nutritional deficiencies (2 sources) Vitamin D deficiency, unspecified; Translations: [Vitamin D deficiency, unspecified] Onset: 5 Chronic Open wounds of extremities (11 sources) Tear of skin; Translations: [Laceration without foreign body of right elbow, initial encounter] 09-14-2024 Episodic Osteoarthritis (20 sources) Bilateral shoulder osteoarthritis; Translations: [Primary osteoarthritis, right shoulder] Onset: 1 07-25-2020 Chronic Osteoporosis (20 sources) Senile osteoporosis; Translations: [Age-related osteoporosis without current pathological fracture] Onset: 4 11-14-2023 Chronic Other aftercare (20 sources) Anticoagulant effect; Translations: [intermission coordinator (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 anticoagulants] 08-08-2019 Episodic Other aftercare (2 sources) Device in situ; Translations: [Encounter for adjustment and management of vascular access device] 09-24-2022 Episodic Other aftercare (5 sources) Drug therapy finding; Translations: [intermission coordinator (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 systemic steroids] 06-06-2023 Episodic [...] Onset: 1 02-09-2021 Chronic Other liver diseases (19 sources) Hepatic sclerosis; Translations: [Hepatic sclerosis] 08-13-2024 [...] treatment] Episodic Residual codes; unclassified (1 source) Hallucinations, unspecified; Translations: [Hallucinations, unspecified] Onset: 5 Episodic Rheumatoid arthritis and related [...] head, initial encounter] 08-08-2019 Episodic Thyroid disorders (10 sources) Hypothyroidism; Translations: [Hypothyroidism, unspecified] 09-22-2024 Chronic Unclassified (8 sources) S52.602A - Unspecified fracture of lower end of left ulna, initial encounter for closed fracture Unclassified (1 source) Esophagitis, unspecified without bleeding; Translations: [Esophagitis, unspecified without bleeding] Onset: 5 Viral infection (20 sources) Disease caused by [...] radiation] Onset: 6 Resolved: 5 02-17-2012 Episodic Cancer of breast (20 sources) History of malignant neoplasm of breast; Translations: [Personal history of malignant neoplasm of breast] Onset: 8 Resolved: 2 Episodic Cardiac dysrhythmias (20 sources) Palpitations; Translations: [Palpitations] Onset: 6 Resolved: 2 02-17-2012 Episodic Deficiency and other anemia (1 source) Anemia, unspecified; Translations: [Anemia, unspecified] Onset: 5 Episodic Fever of unknown origin (20 sources) [...] sources) Long-term current use of anticoagulant; Translations: [intermission coordinator (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 anticoagulants] Onset: 5 03-22-2019 [...] tissue disorders] Onset: 2 08-13-2021 Episodic Other diseases of bladder and urethra [...] Onset: 4 Resolved: 5 04-15-2014 Episodic Other injuries and conditions due to external causes (1 source) Encounter for examination and observation following other accident; Translations: [Encounter for examination and observation following other accident] Onset: 5 Episodic Other liver diseases (20 sources) Chronic [...] history of diabetes mellitus] Onset: 5 Episodic Spondylosis; intervertebral disc disorders; other back [...] hematuria] Onset: 1 Resolved: 5 07-08-2021 Episodic Results Test Name Value Interpretation Reference Range Facility MR/Murali 01-11-2025 /REHANA [facility] [address], [address] [place], [place] [address] OFFICE VISIT Date of Service: 01/11/25 MR#: [id number] Acct: [id number] Name: CHRISTIAN LANDRUM Rep #: [id number] : 1935 Provider: Dr. Hiwot Demarco i, MD Age/Sex: 89/F Location: [facility] [place] Status: Signed Intake Vital Signs 09/14/24 05:45 11/22/24 11:22 01/11/25 14:41 Height 5 ft 4 in 5 ft 4 in 5 ft 4 in Weight: 173 lb 8 oz BMI 29.7 BP 117/98 H Pulse 74 Intake Visit Reasons: 6MO MED F/U Chief Complaint: 6 month methenamine follow up Post Doctoral Fellow Required: No Accompanied by: daughter Is patient in pain?: No Allergies DESMOND Inhibitors Allergy (Verified 01/11/25 14:40) Unknown adhesive Allergy (Verified 01/11/25 14:40) Unknown cyclobenzaprine HCl (From Flexeril) Allergy (Verified 01/11/25 14:40) Unknown diclofenac sodium (From Arthrotec) Allergy (Verified 01/11/25 14:40) Unknown hydrochlorothiazide Allergy (Verified 01/11/25 14:40) Unknown lisinopril (From Zestril) Allergy (Verified 01/11/25 14:40) Unknown metronidazole (From Flagyl) Allergy (Verified 01/11/25 14:40) Unknown misoprostol (From Arthrotec) Allergy (Verified 01/11/25 14:40) Unknown naproxen Allergy (Verified 01/11/25 14:40) Unknown paroxetine HCl (From Paxil) Allergy (Verified 01/11/25 14:40) Unknown prednisolone acetate (From Blephamide) Allergy (Verified 01/11/25 14:40) Unknown sulfacetamide sodium (From Blephamide) Allergy (Verified 01/11/25 14:40) Unknown Medications ???Medication ???Instructions ???Recorded ???Confirmed ???Type diclofenac sodium 1 % topical gel 100 g TP PRN PRN Pain 03/26/18 History (Voltaren) acetaminophen 325 mg tablet 650 mg PO Q6H PRN Pain 08/20/21 History (Tylenol) Handicapped placcard See Rx Instructions .Route 3 01/11/25 Rx .COMPLEX #1 unit polyethylene glycol 3350 17 gram 17 g PO QDAY PRN 08/13/24 01/11/25 History oral powder packet carboxymethylcellulose sodium 1 % 1 drp ophthalmic (eye) 4-6XD PRN 09/07/24 01/11/25 History eye drops (Artificial Tears (carboxymethylcellulose)) cetirizine 10 mg tablet 10 mg PO QDAY PRN 09/07/24 5 History copper gluconate 2 mg capsule 2 mg PO QDAY 09/07/24 01/11/25 His tory denosumab 60 mg/mL subcutaneous 60 mg subcut [id number] 09/07/24 History syringe (Prolia) escitalopram oxalate 10 mg tablet 10 mg PO QDAY 09/07/24 01/11/25 H istory ferrous gluconate 324 mg (37.5 mg 324 mg PO QDAY 09/07/24 01/11/25 History iron) tablet fluticasone propionate 50 2 spray intranasal QDAY 09/07/24 1 History mcg/actuation nasal spray,suspension (Flonase Allergy Relief) furosemide 20 mg tablet (Lasix) 20 mg PO Q OTHER DAY 09/07/2412/16 History levothyroxine 25 mcg capsule 25 mcg PO QDAY 09/07/24 01/11/25 H istory methenamine hippurate 1 gram tablet 1 g PO BID 09/07/24 01/11/25 Hi story metoprolol succinate 25 mg 25 mg PO QDAY 09/07/24 01/11/25 Hi story tablet,extended release 24 hr omeprazole 40 mg capsule,delayed 40 mg PO QDAY 09/07/24 01/11/25 Hi story release prednisone 20 mg tablet 5 mg PO QDAY PRN 09/07/24 01/11/25 History sennosides 8.6 mg-docusate sodium 1 tab-cap PO QHS 09/07/24 5 History 50 mg capsule (Senna Plus) ascorbate calcium (vitamin C) 500 500 mg PO QDAY 09/24/24 01/11/25 History mg tablet cholecalciferol (vitamin D3) 10 10 mcg PO QDAY 09/24/24 01/11/25 H istory mcg (400 unit) capsule olanzapine 2.5 mg tablet 2.5 mg PO QHS 09/24/24 01/11/25 Hi story modafinil 100 mg tablet mg PO 10/22/24 01/11/25 History estradiol 0.01% (0.1 mg/gram) 1 appful vaginal .Q3Days 11/22/24 01/11/25 History vaginal cream tramadol 50 mg tablet 50 mg PO .qid 30 days #120 tabs 01/11/25 Rx gabapentin 100 mg capsule mg PO 01/11/25 01/11/25 History guaifenesin 100 mg/5 mL oral liquid 200 mg PO Q4H PRN 01/11/2512/16 History psyllium husk 0.4 gram capsule 0.4 g PO ONCE 01/11/25 01/11/25 Hi story (Metamucil) Have you fallen in the past year?: Yes (fell at the end of july and september 14 went to [facility] ED) Nurse's Note: burning in abdomen. [facility] Medical History Loss of hearing Wears [...] walking History of edema History of echocardiogram (more content not included)... Normal [facility] OT D/C of Non Returning Pton 12-07-2024 OT D/C of Non Returning Pt [facility] Occupational Therapy [facility] [address] [place] [address]. [address] [place] [address] / REHABILITATION SERVICES DISCHARGE SUMMARY MR#: [id number] Acct: [id number] Name: CHRISTIAN LANDRUM Rep #: [id number] : 1935 89 From: Cely CARROLL, T Referring Dr.: OLIVE Deluca Status: REG RCR Eval Date: Discharge Date: Patient Information Patient Information: CHRISTIAN LANDRUM was seen in my office for initial evaluation on 10/13/24. The following Plan of Care was established for this patient: POC Established Initial Frequency: 1-2x /Week Initial Duration: 4 Weeks Anticipated Interventions Anticipated Interventions: Strengthening, Orthoses, Education re assistive Equipment, Education re Diagnosis and Caregiver Training Last Seen Last Seen: This patient was last seen in our office 10/13/24. Pertinent comments regarding their Occupational therapy will appear below: no further apts have been scheduled and due to time lapse in services pt is d/c at this time. At this point I will be discontinuing this patient from occupational therapy. I would be happy to see this patient again in the future if found appropriate by the physician. Thank you! ELIZABETH Terrell/Agnes, T 12/07/24 1552 CC: OLIVE Horner; OLIVE Deluca MK Signed Normal [facility] Absolute lymphocyte countOrd ered By: Reji Reyna on 11-29-2024 Lymphocytes Auto (Unsp spec) [#/Vol] 0.68 10*3/uL Low 0.83-4.51 [facility] Absolute neutrophil countOrd ered By: Reji Reyna on 11-29-2024 Neutrophils (Bld) [#/Vol] 3.5 10*3/uL 2.0-7.7 [facility] Anion gap in Serum or Plasma Ordered By: Reji Reyna on 11-29-2024 Anion gap [Moles/Vol] 9 mmol/L 5-15 [facility] Automated lymphocyte count a s percentage of total leukocytesOrdered By: Reji Reyna on 11-29-2024 Lymphocytes/100 WBC Auto (Unsp spec) 13.8 % Low 19-41 [facility] BUN/creatinine ratioOrdered By: Reji Reyna on 11-29-2024 Urea nitrogen/Creatinine [Mass ratio] 25.7 mg/mg High 10-20 [facility] Basophil percentageOrdered B y: Reji Reyna on 11-29-2024 Basophils/100 WBC (Bld) 0.6 % 0-1 [facility] Bilirubin, totalOrdered By: Reji Reyna on 11-29-2024 Bilirubin [Mass/Vol] 0.85 mg/dL 0.00-1.[address] [facility] Calculated very low density lipoprotein (VLDL) cholesterol measurementOrdered By: arline Reyna on 11-29-2024 Calculated very low density lipoprotein (VLDL) cholesterol measurement 18 mg/dL 5-40 [facility] Carbon dioxide, total [Moles /volume] in Central venous bloodOrdered By: meryleast branchgarfield Reyna on 11-29-2024 CO2 [Moles/Vol] 24.2 mmol/L 21.0-32.0 [facility] Chloride assayOrdered By: Angelito merylshine Reyna on 11-29-2024 Chloride [Moles/Vol] 107 mmol/L 98-[address] [facility] Eosinophil percentageOrdered By: Reji Reyna on 11-29-2024 Eosinophils/100 WBC (Bld) 1.8 % 0-5 [facility] Erythrocyte distribution wid th ratioOrdered By: Reji Reyna on 11-29-2024 Erythrocyte distribution width (RBC) [Ratio] 14.8 % High 11.6-14.6 [facility] Erythrocyte distribution wid th standard deviationOrdered By: Reji Reyna on 11-29-2024 Erythrocyte distribution width (RBC) [Ratio] 57.6 fl High 35.1-43.9 [facility] Glomerular filtration rate ( GFR) estimation/1.73 sq m using serum, plasma, or whole bOrdered By: Reji Reyna on 11-29-2024 GFR/1.73 sq M.predicted among non-blacks MDRD (S/P/Bld) [Vol rate/Area] 86 mL/min/{1.73_m2} >60 [facility] Comment on above: mL/min/1.73m2 CKD-EP I Creatinine Equation (2020) Hematocrit Auto (Bld) [Volum e fraction]Ordered By: Reji Reyna on 11-29-2024 Hematocrit (Bld) [Volume fraction] 32.6 % Low 37-47 [facility] Hemoglobin measurementOrdere d By: Reji Reyna on 11-29-2024 Hemoglobin (Bld) [Mass/Vol] 11.1 g/dL Low 12.0-15.0 [facility] Immature granulocytes/100 WB C Auto (Bld)Ordered By: Reji Reyna on 11-29-2024 Immature granulocytes/100 WBC (Bld) 0.400 % 0.0-0.9 [facility] Comment on above: IG% - Immature Granu locytes (promyelocytes, myelocytes and metamyelocytes) > 1% indicates that a LEFT SHIFT is Present. LDL calc ser/plasOrdered By: Reji Reyna on 11-29-2024 Cholesterol in LDL [Mass/Vol] 96 mg/dL [facility] Comment on above: Uzkyvgecwv=294-236 m g/dL & Higher Tuou=649 mg/dL or greaterFriedwald Equation for LDL-C Laboratory - Chemistry and C hemistry - challengeOrdered By: Reji Reyna on 11-29-2024 AST [Catalytic activity/Vol] 32 U/L <32 [facility] MCV (mean corpuscular volume ) determinationOrdered By: Reji Reyna 11-29-2024 MCV (RBC) [Entitic vol] 106.2 fL High 81-99 [facility] Mean corpuscular hemoglobin (MCH) determinationOrdered By: Reji Reyna on 11-29-2024 MCH (RBC) [Entitic mass] 36.2 pg High 27.0-32.0 [facility] Mean corpuscular hemoglobin concentration (MCHC) determinationOrdered By: Reji Reyna on 11-29-2024 MCHC (RBC) [Mass/Vol] 34.0 g/dL 32-36 [facility] Mean platelet volume determi nationOrdered By: Reji Reyna on 11-29-2024 Platelet mean volume (Bld) [Entitic vol] 10.3 fL 6.2-12.0 [facility] Monocyte percentageOrdered B y: Reji Reyna on 11-29-2024 Monocytes/100 WBC (Bld) 12.4 % High 0-10 [facility] Neutrophil percentageOrdered By: Reji Reyna on 11-29-2024 Neutrophils/100 WBC (Bld) 71.0 % High 47-70 [facility] Nucleated red blood cell per centageOrdered By: Reji Reyna on 11-29-2024 Nucleated RBC/100 WBC (Bld) [Ratio] 0 % 0-5 [facility] Platelet countOrdered By: Angelito Reyna on 11-29-2024 Platelets (Bld) [#/Vol] 101 10*3/uL Low 150-450 [facility] Potassium measurement (mass/ volume)Ordered By: Reji Reyna on 11-29-2024 Potassium (Unsp spec) [Mass/Vol] 4.1 mmol/L 3.3-5.1 [facility] RBC Auto (Bld) [#/Vol]Ordere d By: Reji Reyna on 11-29-2024 RBC (Bld) [#/Vol] 3.07 10*6/uL Low 4.2-5.4 [facility] Screening total cholesterol/ high density lipoprotein (HDL) cholesterol ratioOrdered By: Reji Reyna on 11-29-2024 Cholesterol.total/Chol esterol in HDL [Mass ratio] 2.95 {ratio} [facility] Serum creatinine measurement (mass/volume)Ordered By: Reji Reyna on 11-29-2024 Creatinine [Mass/Vol] 0.61 mg/dL Low 0.70-1.20 [facility] Serum globulin measurementOr dered By: Reji Ryena on 11-29-2024 Globulin (S) [Mass/Vol] 2.8 g/dL 2.2-4.2 [facility] Serum glucose measurement (m ass/volume)Ordered By: Reji Reyna on 11-29-2024 Glucose [Mass/Vol] 73 mg/dL 70-99 [facility] Serum or plasma alanine cheatham otransferase (ALT) measurementOrdered By: Angelitomerylmichaelgarfield Herronrejialyssa on 11-29-2024 ALT [Catalytic activity/Vol] 36 U/L High <35 [facility] Serum or plasma albumin yonatan urement (mass/volume)Ordered By: Jamisongarfield Herronrejialyssa 11-29-2024 Albumin [Mass/Vol] 3.0 g/dL Low 3.4-4.8 [facility] Serum or plasma albumin/glob ulin mass ratioOrdered By: [facility]11-29-2024 Albumin/Globulin [Mass ratio] 1.1 {ratio} 0.9-2.4 [facility] Serum or plasma alkaline shannon sphatase measurementOrdered By: [facility] Herronalyssa 11-29-2024 ALP [Catalytic activity/Vol] 56 U/L 35-104 [facility] Serum or plasma calcium yonatan urement (mass/volume)Ordered By: [facility] Gopalalyssa 11-29-2024 Calcium [Mass/Vol] 8.9 mg/dL 7.6-11.0 [facility] Serum or plasma cholesterol in HDL measurement (mass/volume)Ordered By: [facility] Herronalyssa 11-29-2024 Cholesterol in HDL [Mass/Vol] 59 mg/dL >40 [facility] Comment on above: National Cholesterol Education Program (NCEP) guidelines:<40 mg/dL: Low HDL-cholesterol (major risk factor for CHD)>= 60 mg/dL: High HDL-cholesterol (negative risk factor for CHD)HDL-cholesterol is affected by a number of factors, e.g. smoking, exercise, hormones, sex and age. Serum or plasma cholesterol measurement (mass/volume)Ordered By: [facility] Herronalyssa on 11-29-2024 Cholesterol [Mass/Vol] 173 mg/dL <201 [facility] Comment on above: Cholesterol level, D esirable <200 mg/dLBorderline high cholesterol 200-239 mg/dLHigh cholesterol >=240 mg/dLRecommendations of the NCEP Adult Treatment Panel for the following risk-cutoff thresholds for the [place] population. Serum or plasma urea nitroge n measurement (mass/volume)Ordered By: Reji Reyna on 11-29-2024 Urea nitrogen [Mass/Vol] 16 mg/dL 4-19 [facility] Sodium levelOrdered By: Jas Reyna on 11-29-2024 Sodium [Moles/Vol] 140 mmol/L 133-145 [facility] Total proteinOrdered By: Fredy Reyna on 11-29-2024 Protein [Mass/Vol] 5.9 g/dL 5.9-8.4 [facility] Triglycerides measurementOrd ered By: Reji Reyna on 11-29-2024 Triglyceride [Mass/Vol] 89 mg/dL <199 [facility] Comment on above: The drugs N-Acetylcy steine and Metamizole may falsely depress this assay. Normal range: <150 mg/dLBorderline High: 150-199 mg/dLHigh: 200-499 mg/dLVery High: >500 mg/dL White blood cell (WBC) count Ordered By: Reji Reyna on 11-29-2024 WBC (Bld) [#/Vol] 4.9 10*3/uL 4.4-11.0 [facility] Gastroenterology Visit Repor ton 11-22-2024 Gastroenterology Visit Report [facility] [address] [place] [address] OFFICE VISIT Date of Service: 11/22/24 MR#: [id number] Acct: [id number] Name: CHRISTIAN LANDRUM Rep #: [id number] : 1935 Provider: OLIVE agrawal Age/Sex: 89/F Location: [facility] Status: Signed Intake Vital Signs 10/22/24 13:55 11/22/24 11:22 Height 5 ft 4 in 5 ft 4 in Weight: 173 lb 4 oz BMI 29.7 BP 147/74 H Respiration 16 Pulse 72 Temp 98.5 F Temp Source Temporal Pulse Oximetry (%) 95 Oxygen Delivery Method room air Intake Visit Reasons: Colitis Chief Complaint: follow-up Post Doctoral Fellow Required: No Accompanied by: Daughter Is patient [...] denosumab 60 mg/mL subcutaneous 60 mg subcut [id number] 09/07/2411/08 History syringe (Prolia) escitalopram oxalate 10 [...] mg PO .qid 30 days #120 tabs 11/22/24 Rx estradiol 0.01% (0.1 mg/gram) 1 appful vaginal .Q3Days 11/22/24 11/22/24 History vaginal cream Have you [facility] in the past year?: [facility] Loss of hearing Wears glasses [...] fever H (more content not included)... Normal [facility] Bilirubin directOrdered By: Reji Reyna on 11-03-2024 Bilirubin.direct [Mass/Vol] 0.42 mg/dL High 0.00-0.30 [facility] Bilirubin, totalOrdered By: Reji Reyna on 11-03-2024 Bilirubin [Mass/Vol] 0.91 mg/dL 0.00-1.[address] [facility] Laboratory - Chemistry and C hemistry - challengeOrdered By: Reji Reyna on 11-03-2024 AST [Catalytic activity/Vol] 34 U/L High <32 [facility] Serum globulin measurementOr dered By: Reji eRyna on 11-03-2024 Globulin (S) [Mass/Vol] 3.4 g/dL 2.2-4.2 [facility] Serum or plasma alanine cheatham otransferase (ALT) measurementOrdered By: Reji Reyna on 11-03-2024 ALT [Catalytic activity/Vol] 34 U/L <35 [facility] Serum or plasma albumin yonatan urement (mass/volume)Ordered By: Reji Reyna on 11-03-2024 Albumin [Mass/Vol] 3.5 g/dL 3.4-4.8 [facility] Serum or plasma alkaline shannon sphatase measurementOrdered By: Reji Reyna 11-03-2024 ALP [Catalytic activity/Vol] 61 U/L 35-104 [facility] Total proteinOrdered By: Fredy Reyna on 11-03-2024 Protein [Mass/Vol] 6.9 g/dL 5.9-8.4 [facility] Absolute lymphocyte countOrd ered By: Reji Reyna on 11-01-2024 Lymphocytes Auto (Unsp spec) [#/Vol] 0.70 10*3/uL Low 0.83-4.51 [facility] Absolute neutrophil countOrd ered By: Reji Reyna on 11-01-2024 Neutrophils (Bld) [#/Vol] 3.7 10*3/uL 2.0-7.7 [facility] Anion gap in Serum or Plasma Ordered By: Reji Reyna on 11-01-2024 Anion gap [Moles/Vol] 10 mmol/L 5-15 [facility] Automated lymphocyte count a s percentage of total leukocytesOrdered By: Reji Reyna on 11-01-2024 Lymphocytes/100 WBC Auto (Unsp spec) 13.1 % Low 19-41 [facility] BUN/creatinine ratioOrdered By: Reij Reyna on 11-01-2024 Urea nitrogen/Creatinine [Mass ratio] 24.9 mg/mg High 10-20 [facility] Basophil percentageOrdered B y: Reji Reyna on 11-01-2024 Basophils/100 WBC (Bld) 0.4 % 0-1 [facility] Bilirubin, totalOrdered By: Reji Reyna on 11-01-2024 Bilirubin [Mass/Vol] 0.81 mg/dL 0.00-1.[address] [facility] Carbon dioxide, total [Moles /volume] in Central venous bloodOrdered By: Reji Reyna on 11-01-2024 CO2 [Moles/Vol] 24.3 mmol/L 21.0-32.0 [facility] Chloride assayOrdered By: arline Reyna on 11-01-2024 Chloride [Moles/Vol] 106 mmol/L 98-[address] [facility] Eosinophil percentageOrdered By: Reji Ramireze on 11-01-2024 Eosinophils/100 WBC (Bld) 1.9 % 0-5 [facility] Erythrocyte distribution wid th ratioOrdered By: Reji Reyna on 11-01-2024 Erythrocyte distribution width (RBC) [Ratio] 15.8 % High 11.6-14.6 [facility] Erythrocyte distribution wid th standard deviationOrdered By: Reji Reyna on 11-01-2024 Erythrocyte distribution width (RBC) [Ratio] 60.8 fl High 35.1-43.9 [facility] Glomerular filtration rate ( GFR) estimation/1.73 sq m using serum, plasma, or whole bOrdered By: Reji Reyna on 11-01-2024 GFR/1.73 sq M.predicted among non-blacks MDRD (S/P/Bld) [Vol rate/Area] 83 mL/min/{1.73_m2} >60 [facility] Comment on above: mL/min/1.73m2 CKD-EP I Creatinine Equation (2020) Hematocrit Auto (Bld) [Volum e fraction]Ordered By: Reji Reyna on 11-01-2024 Hematocrit (Bld) [Volume fraction] 33.8 % Low 37-47 [facility] Hemoglobin measurementOrdere d By: Reji Reyna 11-01-2024 Hemoglobin (Bld) [Mass/Vol] 11.2 g/dL Low 12.0-15.0 [facility] Immature granulocytes/100 WB C Auto (Bld)Ordered By: Reji Reyna 11-01-2024 Immature granulocytes/100 WBC (Bld) 0.400 % 0.0-0.9 [facility] Comment on above: IG% - Immature Granu locytes (promyelocytes, myelocytes and metamyelocytes) > 1% indicates that a LEFT SHIFT is Present. Laboratory - Chemistry and C hemistry - challengeOrdered By: Reji Reyna 11-01-2024 AST [Catalytic activity/Vol] 32 U/L <32 [facility] MCV (mean corpuscular volume ) determinationOrdered By: Reji Reyna 11-01-2024 MCV (RBC) [Entitic vol] 104.0 fL High 81-99 [facility] Mean corpuscular hemoglobin (MCH) determinationOrdered By: Reji Reyna 11-01-2024 MCH (RBC) [Entitic mass] 34.5 pg High 27.0-32.0 [facility] Mean corpuscular hemoglobin concentration (MCHC) determinationOrdered By: Reji Reyna on 11-01-2024 MCHC (RBC) [Mass/Vol] 33.1 g/dL 32-36 [facility] Mean platelet volume determi nationOrdered By: Reji Reyna on 11-01-2024 Platelet mean volume (Bld) [Entitic vol] 9.8 fL 6.2-12.0 [facility] Monocyte percentageOrdered B y: Reji Reyna on 11-01-2024 Monocytes/100 WBC (Bld) 14.6 % High 0-10 [facility] Neutrophil percentageOrdered By: Reji Reyna on 11-01-2024 Neutrophils/100 WBC (Bld) 69.6 % 47-70 [facility] Nucleated red blood cell per centageOrdered By: Reji Reyna on 11-01-2024 Nucleated RBC/100 WBC (Bld) [Ratio] 0 % 0-5 [facility] Platelet countOrdered By: Angelito Reyna on 11-01-2024 Platelets (Bld) [#/Vol] 112 10*3/uL Low 150-450 [facility] Potassium measurement (mass/ volume)Ordered By: Reji Reyna on 11-01-2024 Potassium (Unsp spec) [Mass/Vol] 4.1 mmol/L 3.3-5.1 [facility] RBC Auto (Bld) [#/Vol]Ordere d By: Reji Reyna on 11-01-2024 RBC (Bld) [#/Vol] 3.25 10*6/uL Low 4.2-5.4 [facility] Serum creatinine measurement (mass/volume)Ordered By: Reji Reyna on 11-01-2024 Creatinine [Mass/Vol] 0.69 mg/dL Low 0.70-1.20 [facility] Serum globulin measurementOr dered By: Reji Reyna on 11-01-2024 Globulin (S) [Mass/Vol] 3.0 g/dL 2.2-4.2 [facility] Serum glucose measurement (m ass/volume)Ordered By: Reji Reyna on 11-01-2024 Glucose [Mass/Vol] 67 mg/dL Low 70-99 [facility] Serum or plasma alanine cheatham otransferase (ALT) measurementOrdered By: Reji Reyna on 11-01-2024 ALT [Catalytic activity/Vol] 32 U/L <35 [facility] Serum or plasma albumin yonatan urement (mass/volume)Ordered By: Reji Reyna on 11-01-2024 Albumin [Mass/Vol] 3.1 g/dL Low 3.4-4.8 [facility] Serum or plasma albumin/glob ulin mass ratioOrdered By: Reji Reyna on 11-01-2024 Albumin/Globulin [Mass ratio] 1.0 {ratio} 0.9-2.4 [facility] Serum or plasma alkaline shannon sphatase measurementOrdered By: Reji Reyna 11-01-2024 ALP [Catalytic activity/Vol] 57 U/L 35-104 [facility] Serum or plasma calcium yonatan urement (mass/volume)Ordered By: Reji Reyna 11-01-2024 Calcium [Mass/Vol] 8.9 mg/dL 7.6-11.0 [facility] Serum or plasma urea nitroge n measurement (mass/volume)Ordered By: Reji Reyna 11-01-2024 Urea nitrogen [Mass/Vol] 17 mg/dL 4-19 [facility] Sodium levelOrdered By: Jas traceynicole Maribell on 11-01-2024 Sodium [Moles/Vol] 139 mmol/L 133-145 [facility] TSH DL <= 0.005 mIU/L QnOrde red By: Reji Reyna on 11-01-2024 TSH Qn 0.767 uIU/mL 0.300-4.200 [facility] Total proteinOrdered By: Fredy Reyna on 11-01-2024 Protein [Mass/Vol] 6.1 g/dL 5.9-8.4 [facility] White blood cell (WBC) count Ordered By: Reji Reyna 11-01-2024 WBC (Bld) [#/Vol] 5.3 10*3/uL 4.4-11.0 [facility] Forearm 2 Viewson 10-22-2024 Forearm 2 Views [facility] Imaging Services [address] [place] [address] Forearm 2 Views MR#: [id number] Acct: [id number] Name: CHRISTIAN LANDRUM Rep #: [id number] : 1935 F 89 From: Mauro reich MD PCP: OLIVE Puckett Status: DEP AMB Study: Forearm 2 Views Date of Exam: 10/22/24 Exam# [id number] Ordering Dr: Carmella Deluca PROCEDURE: FOREARM 2 [...] shaft. The alignment is maintained. Reading Location: [facility] CC: OLIVE Horner; OLIVE Deluca Transportation Engineer: Signed Normal [facility] Orthopedic Visit Reporton Orthopedic Visit Report [facility] [address] [place] [address] 5 [place] [address] OFFICE VISIT Date of Service: 10/22/24 MR#: [id number] Acct: [id number] Name: CHRISTIAN LANDRUM Rep #: [id number] : 1935 Provider: OLIVE manzo Age/Sex: 89/F Location: [facility] Status: Signed Intake Vital Signs 09/14/24 05:45 [...] denosumab 60 mg/mL subcutaneous 60 mg subcut [id number] 09/07/2411/08 History syringe (Prolia) escitalopram oxalate 10 [...] you fallen in the past year?: Yes [facility] Medical History Loss of hearing Wears [...] of esophagogastroduodenoscopy (more content not included)... Normal [facility] OT General Evaluationon 09-16 OT General Evaluation [facility] Occupational Therapy [facility] [address] [place] [address] / REHABILITATION SERVICES INITIAL EVALUATION MR#: [id number] Acct: [id number] Name: CHRISTIAN LANDRUM Rep #: [id number] : 1935 89 From: eCly CARROLL CHT Referring Dr.: OLIVE Deluca Status: [...] and recommendations for weaning and OT at [facility]. 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 Please let me know if there are questions or concerns regarding this plan of care. Physician Signature: Date: 10/13/24 1639 CC: OLIVE Horner; OLIVE Deluca MK Signed For Medicare only, by signing this I certify the plan of care. _ Physicians Signature Date Normal [facility] Absolute lymphocyte countOrd ered By: Reji Reyna on 10-04-2024 Lymphocytes Auto (Unsp spec) [#/Vol] 0.75 10*3/uL Low 0.83-4.51 [facility] Absolute neutrophil countOrd ered By: arline Reyna on 10-04-2024 Neutrophils (Bld) [#/Vol] 4.1 10*3/uL 2.0-7.7 [facility] Anion gap in Serum or Plasma Ordered By: Reji Reyna on 10-04-2024 Anion gap [Moles/Vol] 11 mmol/L 5-15 [facility] Automated lymphocyte count a s percentage of total leukocytesOrdered By: Reji Reyna on 10-04-2024 Lymphocytes/100 WBC Auto (Unsp spec) 13.2 % Low 19-41 [facility] BUN/creatinine ratioOrdered By: arline Reyna on 10-04-2024 Urea nitrogen/Creatinine [Mass ratio] 25.0 mg/mg High 10-20 [facility] Basophil percentageOrdered B y: Reji Reyna on 10-04-2024 Basophils/100 WBC (Bld) 0.7 % 0-1 [facility] Bilirubin, totalOrdered By: Reji Reyna on 10-04-2024 Bilirubin [Mass/Vol] 0.90 mg/dL 0.00-1.[address] [facility] Carbon dioxide, total [Moles /volume] in Central venous bloodOrdered By: Reji Reyna on 10-04-2024 CO2 [Moles/Vol] 22.9 mmol/L 21.0-32.0 [facility] Chloride assayOrdered By: Angelito Reyna on 10-04-2024 Chloride [Moles/Vol] 109 mmol/L High 98-[address] [facility] Eosinophil percentageOrdered By: Reji Reyna on 10-04-2024 Eosinophils/100 WBC (Bld) 1.9 % 0-5 [facility] Erythrocyte distribution wid th ratioOrdered By: Reji Reyna on 10-04-2024 Erythrocyte distribution width (RBC) [Ratio] 15.7 % High 11.6-14.6 [facility] Erythrocyte distribution wid th standard deviationOrdered By: Reji Reyna on 10-04-2024 Erythrocyte distribution width (RBC) [Ratio] 59.2 fl High 35.1-43.9 [facility] Glomerular filtration rate ( GFR) estimation/1.73 sq m using serum, plasma, or whole bOrdered By: Reji Reyna on 10-04-2024 GFR/1.73 sq M.predicted among non-blacks MDRD (S/P/Bld) [Vol rate/Area] 87 mL/min/{1.73_m2} >60 [facility] Comment on above: mL/min/1.73m2 CKD-EP I Creatinine Equation (2020) Hematocrit Auto (Bld) [Volum e fraction]Ordered By: Reji Reyna on 10-04-2024 Hematocrit (Bld) [Volume fraction] 36.4 % Low 37-47 [facility] Hemoglobin measurementOrdere d By: Reji Reyna on 10-04-2024 Hemoglobin (Bld) [Mass/Vol] 12.3 g/dL 12.0-15.0 [facility] Immature granulocytes/100 WB C Auto (Bld)Ordered By: Reji Reyna 10-04-2024 Immature granulocytes/100 WBC (Bld) 0.500 % 0.0-0.9 [facility] Comment on above: IG% - Immature Granu locytes (promyelocytes, myelocytes and metamyelocytes) > 1% indicates that a LEFT SHIFT is Present. Laboratory - Chemistry and C hemistry - challengeOrdered By: Reji Reyna on 10-04-2024 AST [Catalytic activity/Vol] 35 U/L High <32 [facility] MCV (mean corpuscular volume ) determinationOrdered By: Reji Reyna on 10-04-2024 MCV (RBC) [Entitic vol] 101.4 fL High 81-99 [facility] Mean corpuscular hemoglobin (MCH) determinationOrdered By: Reji Reyna on 10-04-2024 MCH (RBC) [Entitic mass] 34.3 pg High 27.0-32.0 [facility] Mean corpuscular hemoglobin concentration (MCHC) determinationOrdered By: Reji eRyna on 10-04-2024 MCHC (RBC) [Mass/Vol] 33.8 g/dL 32-36 [facility] Mean platelet volume determi nationOrdered By: Reji Reyna on 10-04-2024 Platelet mean volume (Bld) [Entitic vol] 10.4 fL 6.2-12.0 [facility] Monocyte percentageOrdered B y: Reji Reyna on 10-04-2024 Monocytes/100 WBC (Bld) 11.1 % High 0-10 [facility] Neutrophil percentageOrdered By: meryleast branchgarfield Reyna on 10-04-2024 Neutrophils/100 WBC (Bld) 72.6 % High 47-70 [facility] Nucleated red blood cell per centageOrdered By: meryleast branchgarfield Reyna on 10-04-2024 Nucleated RBC/100 WBC (Bld) [Ratio] 0 % 0-5 [facility] Platelet countOrdered By: Angelito Reyna on 10-04-2024 Platelets (Bld) [#/Vol] 101 10*3/uL Low 150-450 [facility] Potassium measurement (mass/ volume)Ordered By: Reji Reyna on 10-04-2024 Potassium (Unsp spec) [Mass/Vol] 3.8 mmol/L 3.3-5.1 [facility] RBC Auto (Bld) [#/Vol]Ordere d By: Reji Reyna on 10-04-2024 RBC (Bld) [#/Vol] 3.59 10*6/uL Low 4.2-5.4 [facility] Serum creatinine measurement (mass/volume)Ordered By: Reji Reyna on 10-04-2024 Creatinine [Mass/Vol] 0.59 mg/dL Low 0.70-1.20 [facility] Serum globulin measurementOr dered By: Reji Reyna on 10-04-2024 Globulin (S) [Mass/Vol] 3.1 g/dL 2.2-4.2 [facility] Serum glucose measurement (m ass/volume)Ordered By: Reji Reyna on 10-04-2024 Glucose [Mass/Vol] 72 mg/dL 70-99 [facility] Serum or plasma alanine cheatham otransferase (ALT) measurementOrdered By: Reji Reyna on 10-04-2024 ALT [Catalytic activity/Vol] 40 U/L High <35 [facility] Serum or plasma albumin yonatan urement (mass/volume)Ordered By: Reji Reyna on 10-04-2024 Albumin [Mass/Vol] 3.1 g/dL Low 3.4-4.8 [facility] Serum or plasma albumin/glob ulin mass ratioOrdered By: Reji Reyna 10-04-2024 Albumin/Globulin [Mass ratio] 1.0 {ratio} 0.9-2.4 [facility] Serum or plasma alkaline shannon sphatase measurementOrdered By: Reji Reyna 10-04-2024 ALP [Catalytic activity/Vol] 63 U/L 35-104 [facility] Serum or plasma calcium yonatan urement (mass/volume)Ordered By: Reji Reyna on 10-04-2024 Calcium [Mass/Vol] 9.4 mg/dL 7.6-11.0 [facility] Serum or plasma urea nitroge n measurement (mass/volume)Ordered By: Reji Reyna 10-04-2024 Urea nitrogen [Mass/Vol] 15 mg/dL 4-19 [facility] Sodium levelOrdered By: Jas Reyna on 10-04-2024 Sodium [Moles/Vol] 142 mmol/L 133-145 [facility] Total proteinOrdered By: Fredy Reyna on 10-04-2024 Protein [Mass/Vol] 6.2 g/dL 5.9-8.4 [facility] White blood cell (WBC) count Ordered By: Reji Reyna on 10-04-2024 WBC (Bld) [#/Vol] 5.7 10*3/uL 4.4-11.0 [facility] Forearm 2 Viewson 09-24-2024 Forearm 2 Views [facility] Imaging Services [address] [place], [place] [address] Forearm 2 Views MR#: [id number] Acct: [id number] Name: CHRISTIAN LANDRUM Gabriella Rep #: [id number] : 1935 F 89 From: Wilfred Brothers MD PCP: OLIVE Puckett Status: DEP AMB Study: Forearm 2 Views Date of Exam: 09/24/24 Exam# [id number] Ordering Dr: Carmella Deluca EXAM: XR Left Forearm, 2 Views CLINICAL INDICATION: FX F/U TECHNIQUE: Frontal and lateral views of the left forearm. COMPARISON: XR Forearm dated 08/16/2024 FINDINGS: BONES/JOINTS: Healing fracture of the ulnar radius. No dislocation. SOFT TISSUES: Soft tissue swelling. RAD/Forearm 2 Views IMPRESSION: Healing fracture of the ulnar radius. Reading Location: [facility] CC: OLIVE Horner; OLIVE Deluca Transportation Engineer: Signed Normal [facility] Orthopedic Visit Reporton Orthopedic Visit Report [facility] [address] [place] [address] [address] [place] [address] OFFICE VISIT Date of Service: 09/24/24 MR#: [id number] Acct: [id number] Name: CHRISTIAN LANDRUM Rep #: [id number] : 1935 Provider: OLIVE manzo Age/Sex: 89/F Location: [facility] Status: Signed Intake Vital Signs 09/03/24 14:12 [...] denosumab 60 mg/mL subcutaneous 60 mg subcut [id number] 09/07/2402/08 History syringe (Prolia) escitalopram oxalate 10 [...] of tonsillecto (more content not included)... Normal [facility] C-REACTIVE PROTEINon 025 CRP [Mass/Vol] mg/dL [facility] - 0.9 mg/dL [facility] CBC W Auto Differential pane l (Bld)on 09-21-2024 Basophils (Bld) [#/Vol] 0.04 10*3/uL [facility] Basophils/100 WBC (Bld) 0.6 % [facility] Differential cell count method Nom (Bld) Auto [facility] Eosinophils (Bld) [#/Vol] 0.04 10*3/uL [facility] Eosinophils/100 WBC (Bld) 0.6 % [facility] Erythrocyte distribution width (RBC) [Ratio] 15.9 % High 11.5 - 15.0 % [facility] Hematocrit (Bld) [Volume fraction] 38 % 36.0 - 46.0 % [facility] Hemoglobin (Bld) [Mass/Vol] 12.9 g/dL 11.5 - 15.5 g/dL [facility] Immature granulocytes (Bld) [#/Vol] 0.03 10*3/uL [facility] Immature granulocytes/100 WBC (Bld) 0.4 % [facility] Interpretation and review of laboratory results Abnormal [facility] Lymphocytes (Bld) [#/Vol] 0.39 10*3/uL Low [facility] Lymphocytes/100 WBC (Bld) 5.7 % [facility] MCH (RBC) [Entitic mass] 33.8 pg 26.0 - 34.0 pg [facility] MCHC (RBC) [Mass/Vol] 33.9 g/dL 30.5 - 36.0 g/dL [facility] MCV (RBC) [Entitic vol] 99.5 fL 80.0 - 100.0 fL [facility] Monocytes (Bld) [#/Vol] 0.48 10*3/uL [facility] Monocytes/100 WBC (Bld) 7 % [facility] Neutrophils (Bld) [#/Vol] 5.9 10*3/uL [facility] Neutrophils/100 WBC (Bld) 85.7 % [facility] Nucleated RBC (Bld) [#/Vol] [facility] Nucleated RBC/100 WBC (Bld) [Ratio] 0 % /100 WBC [facility] Platelet mean volume (Bld) [Entitic vol] 9.2 fL 9.0 - 12.7 fL [facility] Platelets (Bld) [#/Vol] 119 10*3/uL Low [facility] RBC (Bld) [#/Vol] 3.82 10*6/uL Low 3.90 - 5.2 0 m/uL [facility] WBC (Bld) [#/Vol] 6.88 10*3/uL [facility] Comprehensive metabolic 2000 panelOrdered By: Pam Tate on 09-21-2024 Albumin [Mass/Vol] 3.4 g/dL Low 3.9 - 4.9 g/dL [facility] ALP [Catalytic activity/Vol] 68 U/L 34 - 123 U/L [facility] ALT [Catalytic activity/Vol] 50 U/L High 7 - 38 U/L [facility] Anion gap [Moles/Vol] 11 mmol/L 8 - 15 mmol/L [facility] AST [Catalytic activity/Vol] 46 U/L High 13 - 35 U/L [facility] Bilirubin [Mass/Vol] 0.9 mg/dL 0.2 - 1 .3 mg/dL [facility] Calcium [Mass/Vol] 9.3 mg/dL 8.5 - 10. 2 mg/dL [facility] Chloride [Moles/Vol] 104 mmol/L 98 - 10 7 mmol/L [facility] CO2 [Moles/Vol] 22 mmol/L 22 - 30 mmol/L [facility] Creatinine [Mass/Vol] 0.57 mg/dL Low 0.58 - 0.96 mg/dL [facility] GFR/1.73 sq M.predicted among non-blacks MDRD (S/P/Bld) [Vol rate/Area] 88 mL/min/{1.73_m2} - PINF [facility] Comment on above: Estimated Glomerular Filtration Rate [...] 196 mg/dL High 74 - 99 mg/dL [facility] Comment on above: The [place] Diabete s Association (ADA) provides guidance for [...] Medical Care in Diabetes 2016, [place] Diabetes Association. Diabetes Care. 2016.39(Suppl 1). Interpretation and review of laboratory results Abnormal [facility] Potassium [Moles/Vol] 4.3 mmol/L 3.7 - 5.1 mmol/L [facility] Protein [Mass/Vol] 6.5 g/dL 6.3 - 8.0 g/dL [facility] Sodium [Moles/Vol] 137 mmol/L 136 - 144 mmol/L [facility] Urea nitrogen [Mass/Vol] 13 mg/dL 7 - 21 mg/dL [facility] ESR Westergren method (Bld) [Velocity]on 09-21-2024 ESR (Bld) [Velocity] 29 mm/h High [facility] Interpretation and review of laboratory results Abnormal [facility] Iron and Iron binding capaci ty panelon 09-21-2024 Iron [Mass/Vol] 113 ug/dL 41 - 186 ug/dL [facility] Iron binding capacity [Mass/Vol] 268 ug/dL 232 - 386 ug/dL [facility] Iron/TIBC [Molar ratio] 42.2 % 15.0 - 57.0 % [facility] No Panel Informationon 09-21 Interpretation and review of laboratory results Normal [facility] Urine Cultureon 09-17-2024 [facility] Urine Culture Urine Culture Escherichia coli [place] Count >100,000 Klebsiella pneumoniae sp pneum Klebsiella [...] cefTRIAXone Islt JEMAL <=0.25 S Ciprofloxacin Islt EJMAL <=0.06 S B-Lactamase Extended Susc Islt NEG Gentamicin Islt JEMAL <=1 S levoFLOXacin Islt JEMAL <=0.12 S Meropenem Islt JEMAL <=0.25 S Nitrofurantoin Islt JEMAL 64 I Pip+Tazo Islt JEMAL <=4 S TMP SMX Islt JEMAL <=20 S Normal [facility] Comment on above: Performed By: #### M 100.6992 ####[facility] [address] [place], [place], [address] Bilirubin Test strip Ql (U)O rdered By: Sung Torres on 09-14-2024 Bilirubin Ql (U) Negative Negative [facility] Brain/Head without Contrasto n 09-14-2024 Brain/Head without Contrast [facility] Imaging Services [address] [place] [address] Brain/Head without Contrast MR#: [id number] Acct: [id number] Name: CHRISTIAN LANDRUM Rep #: [id number] : 1935 F 89 From: Cathy Brito MD PCP: OLIVE Puckett Status: REG ER Study: Brain/Head without Contrast Date of Exam: 04/10 Exam# [id number] Ordering Dr: Sung Torres DO EXAM: NONCONTRAST [...] acute intracranial pathology. Reading Location: [facility] CC: [employer] Galina Horner; Sung Torres DO Transportation Engineer: Signed Normal [facility] Elbow min 3 Viewson 09-15-19 25 Elbow min 3 Views [facility] Imaging Services [address] [place], [place] [address] Elbow min 3 Views MR#: [id number] Acct: [id number] Name: CHRISTIAN LANDRUM Rep #: [id number] : 1935 F 89 From: Cathy Brito MD PCP: OLIVE Puckett Status: REG ER Study: Elbow min 3 Views Date of Exam: 09/14/24 Exam# [id number] Ordering Dr: Sung Torres DO PROCEDURE: ELBOW MIN 3 VIEWS 09/14/2024 REASON FOR EXAM: PAIN TECHNIQUE: ELBOW MIN 3 VIEWS COMPARISON: None FINDINGS: There is no fracture or dislocation identified. There is no visible joint effusion. Mineralization is normal. There is no visible atherosclerosis. RAD/Elbow min 3 Views IMPRESSION: No fracture or dislocation is identified. Reading Location: [facility] CC: [employer] Galina Horner; Sung Torres DO Transportation Engineer: Signed Normal [facility] Emergency Department Summary on 09-14-2024 Emergency Department Summary [facility] Medical Records Department [address] [place] [address] Emergency Department Summary 09/14/24 MR#: [id number] Acct: [id number] Name: CHRISTIAN LANDRUM Rep #: [id number] : 1935 89 From: Sung Torres DO PCP: OLIVE Puckett Status:DEP ER Location: ED HPI History of Present Illness Chief Complaint: Fall Informant: patient, family and SNF Narrative Narrative: Patient is an 89-year-old female from the retirement with history of proximal A-fib currently on metoprolol but no anticoagulation as well as hypothyroidism and depression. Patient and daughter state that she also has difficulty ambulating. Patient reports that she was trying to get up this morning and lost her balance and fell landing on her right side. She denies any loss of consciousness. alf states that the nurse had walked by [...] infection she was sent in for evaluation [facility] Medical History Loss of hearing Wears glasses [...] denosumab 60 mg/mL subcutaneous 60 mg subcut [id number] 09/07/24 Unk nown History syringe (Prolia) escitalopram [...] 05:40 metronid (more content not included)... Normal [facility] Ketones Test strip Ql (U)Ord ered By: Sung Torres on 09-14-2024 Ketones Ql (U) 5 mg/dl High Negative [facility] Microscopic analysis of urin e for red blood cells (RBC)Ordered By: Sung Torres on 09-14-2024 Microscopic analysis of urine for red blood cells (RBC) 0-5 SEEN /hpf 0-5 [facility] Mucus LM Ql (Urine sed)Order ed By: Sung Torres on 09-14-2024 Mucus Ql (Urine sed) 0 SEEN /hpf [facility] Nitrite Test strip Ql (U)Ord ered By: Sung Torres on 09-14-2024 Nitrite Ql (U) Negative Negative [facility] Pelvis 1 or 2 Viewson 2024 Pelvis 1 or 2 Views [facility] Imaging Services [address] [place] [place] [id number] Pelvis 1 or 2 Views MR#: [id number] Acct: [id number] Name: CHRISTIAN LANDRUM Rep #: [id number] : 1935 F 89 From: Cathy Brito MD PCP: OLIVE Puckett Status: REG ER Study: Pelvis 1 or 2 Views Date of Exam: 09/14/24 Exam# [id number] Ordering Dr: Sung Torres DO PROCEDURE: PELVIS [...] fracture is identified. Reading Location: [facility] CC: [employer] Galina Horner; Sung Torres DO Transportation Engineer: Signed Normal [facility] Protein Test strip Ql (U)Ord ered By: Sung Torres on 09-14-2024 Protein Ql (U) 30 mg/dl High Negative [facility] Spine Cervical without Contr ason 09-14-2024 Spine Cervical without Contras [facility] Imaging Services [address] [place], [place] [id number] Spine Cervical without Contras MR#: [id number] Acct: [id number] Name: CHRISTIAN LANDRUM Rep #: [id number] : 1935 F 89 From: Cathy Brito MD PCP: Galina Tickton, [employer] Status: REG ER Study: Spine Cervical without Contras Date of Exam: 0 09/14/24 Exam# [id number] Ordering Dr: Sung Torres DO PROCEDURE: SPINE [...] acute traumatic injury. Reading Location: [facility] CC: [employer] Galina Horner; Sung Torres DO Transportation Engineer: Signed Normal [facility] Squamous epithelial cells de tection in urine sediment by light microscopyOrdered By: Sung Torres on 09-14-2024 Epithelial cells.squamous LM Ql (Urine sed) 0-5 SEEN /hpf 5-10 [facility] Urinalysis, Completeon 09-14 EPI,SQUAMOUS 0-5 SEEN Normal 5-10 [facility] Comment on above: Order Comment: COLLE CTOR TO SPECIFY Performed By: #### L 400.0001 ####[facility] [address] [place], [address] RBC 0-5 SEEN Normal 0-5 [facility] Comment on above: Order Comment: COLLE CTOR TO SPECIFY Performed By: #### L 400.0001 ####[facility] [address] [place], [place], [address] BACTERIA 3+ /hpf Normal None Seen [facility] Comment on above: Order Comment: GILBERTO CTOR TO SPECIFY Performed By: #### L 400.0001 ####[facility] [address] [place], [address] WBC 10-25 SEEN Normal 0-5 [facility] Comment on above: Order Comment: GILBERTO CTOR TO SPECIFY Performed By: #### L 400.0001 ####[facility] [address] [place], [address] Mucus Ql (Urine sed) 0 SEEN Normal [facility] Comment on above: Order Comment: GILBERTO CTOR TO SPECIFY Performed By: #### L 400.0001 ####[facility] [id number] [place], [place], [id number] Urine clarityOrdered By: Zander Torres on 09-14-2024 Clarity (U) Sl. Cloudy Clear [facility] Urine color determinationOrd ered By: Sung Torres on 09-14-2024 Color (U) Yellow Yellow [facility] Urine cultureOrdered By: Zander Torres on 09-14-2024 Bacteria identified Cx Nom (U) Escherichia coli Abnormal [facility] Bacteria identified Cx Nom (U) Klebsiella pneumoniae sp pneum Abnormal [facility] Urine glucose detectionOrder ed By: Sung Torres on 09-14-2024 Glucose Ql (U) Normal mg/dl Normal [facility] Urine leukocyte esterase det ection by dipstickOrdered By: Sung Torres on 09-14-2024 Leukocyte esterase Test strip Ql (U) 500 /ul High Negative [facility] Urine pHOrdered By: Sung canales on 09-14-2024 pH (U) 6.5 [pH] 5.0 - 8.0 [facility] Urine sediment bacteria coun t by microscopy (number/high power field)Ordered By: Sung Torres on 09-14-2024 Bacteria LM.HPF (Urine sed) [#/Area] 3 /[HPF] None Seen [facility] Urine specific gravity measu rementOrdered By: Sung Torres on 09-14-2024 Specific gravity (U) [Rel density] 1.015 1.002-1.030 [facility] Urine urobilinogen measureme ntOrdered By: Sung Torres on 09-14-2024 Urobilinogen Ql (U) 1 mg/dl High Normal [facility] White blood cell countOrdere d By: Sung Torres on 09-14-2024 White blood cell count 10-25 SEEN /hpf 0-5 [facility] Gastroenterology Visit Repor ton 09-07-2024 Gastroenterology Visit Report [facility] [address] [place] [address] OFFICE VISIT Date of Service: 09/07/24 MR#: [id number] Acct: [id number] Name: CHRISTIAN LANDRUM Rep #: [id number] : 1935 Provider: OLIVE agrawal Age/Sex: 89/F Location: [facility] Status: Signed Intake Vital Signs 08/18/24 14:34 [...] denosumab 60 mg/mL subcutaneous 60 mg subcut [id number] 09/07/24 History syringe (Prolia) escitalopram oxalate 10 [...] a bowel resection and fistula repair at [facility]. Is having fecal incontinence which is new. It's more of a smear and she wipes and wipes and wipes. [facility] Medical History Loss of hearing Wears [...] esophagogastroduodenoscopy (E (more content not included)... Normal [facility] Orthopedic Visit Reporton Orthopedic Visit Report [facility] [address] [place] [address] [address] [place] [address] OFFICE VISIT Date of Service: 09/03/24 MR#: [id number] Acct: [id number] Name: CHRISTIAN LANDRUM Rep #: [id number] : 1935 Provider: OLIVE manzo Age/Sex: 89/F Location: [facility] Status: Signed Intake Vital Signs 08/18/24 14:34 [...] decisions made (more content not included)... Normal [facility] Wrist min 3 Viewson 09-04-19 Wrist min 3 Views [facility] Imaging Services [address] [place] [address] Wrist min 3 Views MR#: [id number] Acct: [id number] Name: CHRISTIAN LANDRUM Rep #: [id number] : 1935 F 89 From: Mallika wyatt MD PCP: Dr. Reji Reyna MD Status: DEP AMB Study: Wrist min 3 Views Date of Exam: 09/03/24 Exam# [id number] Ordering Dr: Carmella Deluca [employer] PROCEDURE: WRIST MIN 3 VIEWS 09/03/2024 REASON [...] in the distal ulnar diaphysis. Reading Location: [place] [address] CC: OLIVE Deluca; Dr. Reji Reyna MD Transportation Engineer: Signed Normal [facility] Absolute lymphocyte countOrd ered By: Reji Reyna on 08-30-2024 Lymphocytes Auto (Unsp spec) [#/Vol] 0.95 10*3/uL 0.83-4.51 [facility] Absolute neutrophil countOrd ered By: Reji Reyna on 08-30-2024 Neutrophils (Bld) [#/Vol] 5.3 10*3/uL 2.0-7.7 [facility] Anion gap in Serum or Plasma Ordered By: Reji Reyna on 08-30-2024 Anion gap [Moles/Vol] 10 mmol/L 5-15 [facility] Automated lymphocyte count a s percentage of total leukocytesOrdered By: Reji Reyna on 08-30-2024 Lymphocytes/100 WBC Auto (Unsp spec) 13.2 % Low 19-41 [facility] BUN/creatinine ratioOrdered By: Reji Reyna on 08-30-2024 Urea nitrogen/Creatinine [Mass ratio] 30.3 mg/mg High 10-20 [facility] Basophil percentageOrdered B y: Reji Reyna on 08-30-2024 Basophils/100 WBC (Bld) 0.6 % 0-1 [facility] Bilirubin, totalOrdered By: Reji Reyna on 08-30-2024 Bilirubin [Mass/Vol] 1.04 mg/dL 0.00-1.[address] [facility] Carbon dioxide, total [Moles /volume] in Central venous bloodOrdered By: Reji Reyna on 08-30-2024 CO2 [Moles/Vol] 25.2 mmol/L 21.0-32.0 [facility] Chloride assayOrdered By: Angelito Reyna on 08-30-2024 Chloride [Moles/Vol] 102 mmol/L 98-[address] [facility] Eosinophil percentageOrdered By: meryleast branchgarfield Gopalosvaldo 08-30-2024 Eosinophils/100 WBC (Bld) 1.5 % 0-5 [facility] Erythrocyte distribution wid th ratioOrdered By: meryleast branchgarfield Gopalosvaldo on 08-30-2024 Erythrocyte distribution width (RBC) [Ratio] 15.9 % High 11.6-14.6 [facility] Erythrocyte distribution wid th standard deviationOrdered By: [facility] Herronalyssa on 08-30-2024 Erythrocyte distribution width (RBC) [Ratio] 57.3 fl High 35.1-43.9 [facility] Glomerular filtration rate ( GFR) estimation/1.73 sq m using serum, plasma, or whole bOrdered By: Jaseast branchgarfield Gopalosvaldo on 08-30-2024 GFR/1.73 sq M.predicted among non-blacks MDRD (S/P/Bld) [Vol rate/Area] 86 mL/min/{1.73_m2} >60 [facility] Comment on above: mL/min/1.73m2 CKD-EP I Creatinine Equation (2020) Hematocrit Auto (Bld) [Volum e fraction]Ordered By: [facility] Herronalyssa 08-30-2024 Hematocrit (Bld) [Volume fraction] 37.5 % 37-47 [facility] Hemoglobin measurementOrdere d By: Reji Gopalrejialyssa 08-30-2024 Hemoglobin (Bld) [Mass/Vol] 12.5 g/dL 12.0-15.0 [facility] Immature granulocytes/100 WB C Auto (Bld)Ordered By: brunildagarfield Herronrejialyssa 08-30-2024 Immature granulocytes/100 WBC (Bld) 0.600 % 0.0-0.9 [facility] Comment on above: IG% - Immature Granu locytes (promyelocytes, myelocytes and metamyelocytes) > 1% indicates that a LEFT SHIFT is Present. Laboratory - Chemistry and C hemistry - challengeOrdered By: Reji Reyna on 08-30-2024 AST [Catalytic activity/Vol] 34 U/L High <32 [facility] MCV (mean corpuscular volume ) determinationOrdered By: Reji Reyna on 08-30-2024 MCV (RBC) [Entitic vol] 99.5 fL High 81-99 [facility] Mean corpuscular hemoglobin (MCH) determinationOrdered By: Reji Reyna on 08-30-2024 MCH (RBC) [Entitic mass] 33.2 pg High 27.0-32.0 [facility] Mean corpuscular hemoglobin concentration (MCHC) determinationOrdered By: Reji Reyna on 08-30-2024 MCHC (RBC) [Mass/Vol] 33.3 g/dL 32-36 [facility] Mean platelet volume determi nationOrdered By: Reji Reyna on 08-30-2024 Platelet mean volume (Bld) [Entitic vol] 10.4 fL 6.2-12.0 [facility] Monocyte percentageOrdered B y: Reji Reyna on 08-30-2024 Monocytes/100 WBC (Bld) 10.2 % High 0-10 [facility] Neutrophil percentageOrdered By: Reji Reyna on 08-30-2024 Neutrophils/100 WBC (Bld) 73.9 % High 47-70 [facility] Nucleated red blood cell per centageOrdered By: Reji Reyna on 08-30-2024 Nucleated RBC/100 WBC (Bld) [Ratio] 0 % 0-5 [facility] Platelet countOrdered By: Angelito Reyna on 08-30-2024 Platelets (Bld) [#/Vol] 104 10*3/uL Low 150-450 [facility] Potassium measurement (mass/ volume)Ordered By: Reji Reyna on 08-30-2024 Potassium (Unsp spec) [Mass/Vol] 4.2 mmol/L 3.3-5.1 [facility] RBC Auto (Bld) [#/Vol]Ordere d By: Reji Reyna on 08-30-2024 RBC (Bld) [#/Vol] 3.77 10*6/uL Low 4.2-5.4 [facility] Serum creatinine measurement (mass/volume)Ordered By: Reji Reyna on 08-30-2024 Creatinine [Mass/Vol] 0.62 mg/dL Low 0.70-1.20 [facility] Serum globulin measurementOr dered By: Reji Reyna on 08-30-2024 Globulin (S) [Mass/Vol] 3.0 g/dL 2.2-4.2 [facility] Serum glucose measurement (m ass/volume)Ordered By: Reji Reyna on 08-30-2024 Glucose [Mass/Vol] 75 mg/dL 70-99 [facility] Serum or plasma alanine cheatham otransferase (ALT) measurementOrdered By: Reji Reyna on 08-30-2024 ALT [Catalytic activity/Vol] 42 U/L High <35 [facility] Serum or plasma albumin yonatan urement (mass/volume)Ordered By: Reji Reyna on 08-30-2024 Albumin [Mass/Vol] 3.2 g/dL Low 3.4-4.8 [facility] Serum or plasma albumin/glob ulin mass ratioOrdered By: Reji Reyna on 08-30-2024 Albumin/Globulin [Mass ratio] 1.1 {ratio} 0.9-2.4 [facility] Serum or plasma alkaline shannon sphatase measurementOrdered By: Reji Reyna on 08-30-2024 ALP [Catalytic activity/Vol] 75 U/L 35-104 [facility] Serum or plasma calcium yonatan urement (mass/volume)Ordered By: Reji Reyna on 08-30-2024 Calcium [Mass/Vol] 9.3 mg/dL 7.6-11.0 [facility] Serum or plasma urea nitroge n measurement (mass/volume)Ordered By: Reji Reyna on 08-30-2024 Urea nitrogen [Mass/Vol] 19 mg/dL 4-19 [facility] Sodium levelOrdered By: Jas Reyna on 06-16-2025 Sodium [Moles/Vol] 137 mmol/L 133-145 [facility] Total proteinOrdered By: Fredy Reyna on 08-30-2024 Protein [Mass/Vol] 6.3 g/dL 5.9-8.4 [facility] White blood cell (WBC) count Ordered By: Reji Reyna on 08-30-2024 WBC (Bld) [#/Vol] 7.2 10*3/uL 4.4-11.0 [facility] Forearm 2 Viewson 08-18-2024 Forearm 2 Views [facility] Imaging [facility] [address] [place], [place] [id number] Forearm 2 Views MR#: [id number] Acct: [id number] Name: CHRISTIAN LANDRUM Gabriella Rep #: [id number] : 1935 F 89 From: Nic Ozuna MD PCP: Dr. Reji Reyna MD Status: DEP AMB Study: Forearm 2 Views Date of Exam: 08/18/24 Exam# [id number] Ordering Dr: Carmella Deluca PROCEDURE: FOREARM 2 VIEWS 08/18/2024 REASON FOR EXAM: FX F/U TECHNIQUE: 2 view(s) of the left forearm COMPARISON: Left forearm, 08/14/2019. FINDINGS: There is a healing greenstick fracture of the distal ulnar shaft. There is no significant angulation deformity. RAD/Forearm 2 Views IMPRESSION: Healing ulnar shaft fracture. Reading Location: [id number] CC: OLIVE Deluca; Dr. Reji Reyna MD Transportation Engineer: Signed Normal [facility] Orthopedic Visit Reporton Orthopedic Visit Report [facility] [address] [place] [address] [address] [place] [address] OFFICE VISIT Date of Service: 08/18/24 MR#: [id number] Acct: [id number] Name: THERESASARAAGA Quiroz Rep #: [id number] : 1935 Provider: OLIVE manzo Age/Sex: 89/F Location: [facility] Status: Signed Intake Vital Signs 08/13/24 13:10 [...] of mastectomy (more content not included)... Normal [facility] Forearm 2 Viewson 08-13-2024 Forearm 2 Views [facility] [address] [place], [place] [address] Forearm 2 Views MR#: [id number] Acct: [id number] Name: CHRISTIAN LANDRUM Rep #: [id number] : 1935 F 89 From: Obdulia Snider MD PCP: Dr. Reji Reyna MD Status: DEP AMB Study: Forearm 2 Views Date of Exam: 08/13/24 Exam# [id number] Ordering Dr: Carmella Deluca [employer] PROCEDURE: FOREARM 2 VIEWS 08/13/2024 REASON FOR [...] joint. Osteopenia. Reading Location: [facility] CC: OLIVE Deluca; Dr. Reji Reyna MD Transportation Engineer: Signed Normal [facility] Humerus min 2 Viewson 2024 Humerus min 2 Views [facility] [address] [place], [place] [id number] Humerus min 2 Views MR#: [id number] Acct: [id number] Name: CHRISTIAN LANDRUM Rep #: [id number] : 1935 F 89 From: Obdulia Snider MD PCP: Dr. Reji Reyna MD Status: DEP AMB Study: Humerus min 2 Views Date of Exam: 08/13/24 Exam# [id number] Ordering Dr: Carmella Deluca PROCEDURE: HUMERUS MIN [...] glenohumeral joint osteoarthrosis as above. Reading Location: [facility] CC: OLIVE Deluca; Dr. Reji Reyna MD Transportation Engineer: Signed Normal [facility] Orthopedic Visit Reporton Orthopedic Visit Report [facility] [address] [place] [address] [address] [place], [place] [id number] OFFICE VISIT Date of Service: 08/13/24 MR#: [id number] Acct: [id number] Name: CHRISTIAN LANDRUM Rep #: [id number] : 1935 Provider: OLIVE manzo Age/Sex: 89/F Location: [facility] Status: Signed Intake Vital Signs 08/13/24 13:10 [...] the decisions made by me, Carmella Deluca, [employer] 08/13/24 2478. Part of today???s visit was documented by [...] bruising. Patient stays at facility and the [employer] there today reports a portable x-ray showed [...] Wrist/Hand Peña (more content not included)... Normal [facility] CT Abd/Pelvis W/WO Contrasto n 08-06-2024 CT Abd/Pelvis W/WO Contrast [facility] Services [address] [place], [place] [address] CT Abd/Pelvis W/WO Contrast MR#: [id number] Acct: [id number] Name: CHRISTIAN LANDRUM Rep #: [id number] : 1935 F 89 From: Mallika wyatt MD PCP: Dr. Reji Reyna MD Status: REG CLI Study: CT Abd/Pelvis W/WO Contrast Date of Exam: 07/16 06/08 Exam# [id number] Ordering Dr: Hiwot Abdullahi MD PROCEDURE: CT [...] the stomach suggestive of gastritis. Reading Location: [place] [address] CC: Dr. Reji Reyna MD; Dr. Hiwot Abdullahi MD Transportation Engineer: Signed Normal [facility] Absolute lymphocyte countOrd ered By: Reji Reyna on 08-02-2024 Lymphocytes Auto (Unsp spec) [#/Vol] 0.96 10*3/uL 0.83-4.51 [facility] Absolute neutrophil countOrd ered By: Reji Reyna on 08-02-2024 Neutrophils (Bld) [#/Vol] 4.6 10*3/uL 2.0-7.7 [facility] Anion gap in Serum or Plasma Ordered By: Reji Reyna on 08-02-2024 Anion gap [Moles/Vol] 9 mmol/L 5-15 [facility] Automated lymphocyte count a s percentage of total leukocytesOrdered By: Reji Reyna on 08-02-2024 Lymphocytes/100 WBC Auto (Unsp spec) 15.0 % Low 19-41 [facility] BUN/creatinine ratioOrdered By: Reji Reyna on 08-02-2024 Urea nitrogen/Creatinine [Mass ratio] 27.8 mg/mg High 10-20 [facility] Basophil percentageOrdered B y: Reji Reyna on 08-02-2024 Basophils/100 WBC (Bld) 0.6 % 0-1 [facility] Bilirubin, totalOrdered By: Jaseast branchgarfield Reyna on 08-02-2024 Bilirubin [Mass/Vol] 0.73 mg/dL 0.00-1.[address] [facility] Carbon dioxide, total [Moles /volume] in Central venous bloodOrdered By: Reji Reyna on 08-02-2024 CO2 [Moles/Vol] 23.8 mmol/L 21.0-32.0 [facility] Chloride assayOrdered By: Angelito Reyna on 08-02-2024 Chloride [Moles/Vol] 104 mmol/L 98-[address] [facility] Eosinophil percentageOrdered By: Reji Reyna on 08-02-2024 Eosinophils/100 WBC (Bld) 1.4 % 0-5 [facility] Erythrocyte distribution wid th ratioOrdered By: Reji Reyna on 08-02-2024 Erythrocyte distribution width (RBC) [Ratio] 16.2 % High 11.6-14.6 [facility] Erythrocyte distribution wid th standard deviationOrdered By: Reji Reyna on 08-02-2024 Erythrocyte distribution width (RBC) [Ratio] 58.4 fl High 35.1-43.9 [facility] Glomerular filtration rate ( GFR) estimation/1.73 sq m using serum, plasma, or whole bOrdered By: Reji Reyna on 08-02-2024 GFR/1.73 sq M.predicted among non-blacks MDRD (S/P/Bld) [Vol rate/Area] 87 mL/min/{1.73_m2} >60 [facility] Comment on above: mL/min/1.73m2 CKD-EP I Creatinine Equation (2020) Hematocrit Auto (Bld) [Volum e fraction]Ordered By: Reji Reyna on 08-02-2024 Hematocrit (Bld) [Volume fraction] 36.7 % Low 37-47 [facility] Hemoglobin measurementOrdere d By: Reji Reyna on 08-02-2024 Hemoglobin (Bld) [Mass/Vol] 12.1 g/dL 12.0-15.0 [facility] Immature granulocytes/100 WB C Auto (Bld)Ordered By: Reji Reyna on 08-02-2024 Immature granulocytes/100 WBC (Bld) 0.800 % 0.0-0.9 [facility] Comment on above: IG% - Immature Granu locytes (promyelocytes, myelocytes and metamyelocytes) > 1% indicates that a LEFT SHIFT is Present. Laboratory - Chemistry and C hemistry - challengeOrdered By: Reji Reyna on 08-02-2024 AST [Catalytic activity/Vol] 33 U/L High <32 [facility] MCV (mean corpuscular volume ) determinationOrdered By: Reji Reyna on 08-02-2024 MCV (RBC) [Entitic vol] 98.4 fL 81-99 [facility] Mean corpuscular hemoglobin (MCH) determinationOrdered By: Reji Reyna on 08-02-2024 MCH (RBC) [Entitic mass] 32.4 pg High 27.0-32.0 [facility] Mean corpuscular hemoglobin concentration (MCHC) determinationOrdered By: Reji Reyna on 08-02-2024 MCHC (RBC) [Mass/Vol] 33.0 g/dL 32-36 [facility] Mean platelet volume determi nationOrdered By: Reji Reyna on 08-02-2024 Platelet mean volume (Bld) [Entitic vol] 9.4 fL 6.2-12.0 [facility] Monocyte percentageOrdered B y: Reji Reyna on 08-02-2024 Monocytes/100 WBC (Bld) 10.5 % High 0-10 [facility] Neutrophil percentageOrdered By: Jasshine Gopalrejialyssa on 08-02-2024 Neutrophils/100 WBC (Bld) 71.7 % High 47-70 [facility] Nucleated red blood cell per centageOrdered By: Reji Reyna on 08-02-2024 Nucleated RBC/100 WBC (Bld) [Ratio] 0 % 0-5 [facility] Platelet countOrdered By: Angelito merylshine Reyna on 08-02-2024 Platelets (Bld) [#/Vol] 141 10*3/uL Low 150-450 [facility] Potassium measurement (mass/ volume)Ordered By: Reji Reyna on 08-02-2024 Potassium (Unsp spec) [Mass/Vol] 4.4 mmol/L 3.3-5.1 [facility] RBC Auto (Bld) [#/Vol]Ordere d By: Reji Reyna on 08-02-2024 RBC (Bld) [#/Vol] 3.73 10*6/uL Low 4.2-5.4 [facility] Serum creatinine measurement (mass/volume)Ordered By: Reji Reyna on 08-02-2024 Creatinine [Mass/Vol] 0.58 mg/dL Low 0.70-1.20 [facility] Serum globulin measurementOr dered By: Reji Reyna 08-02-2024 Globulin (S) [Mass/Vol] 3.7 g/dL 2.2-4.2 [facility] Serum glucose measurement (m ass/volume)Ordered By: Reji Reyna on 08-02-2024 Glucose [Mass/Vol] 79 mg/dL 70-99 [facility] Serum or plasma alanine cheatham otransferase (ALT) measurementOrdered By: Reji Reyna on 08-02-2024 ALT [Catalytic activity/Vol] 34 U/L <35 [facility] Serum or plasma albumin yonatan urement (mass/volume)Ordered By: Reji Reyna on 08-02-2024 Albumin [Mass/Vol] 3.4 g/dL 3.4-4.8 [facility] Serum or plasma albumin/glob ulin mass ratioOrdered By: Reji Reyna on 08-02-2024 Albumin/Globulin [Mass ratio] 0.9 {ratio} 0.9-2.4 [facility] Serum or plasma alkaline shannon sphatase measurementOrdered By: Reji Reyna on 08-02-2024 ALP [Catalytic activity/Vol] 63 U/L 35-104 [facility] Serum or plasma calcium yonatan urement (mass/volume)Ordered By: Reji Reyna on 08-02-2024 Calcium [Mass/Vol] 9.2 mg/dL 7.6-11.0 [facility] Serum or plasma urea nitroge n measurement (mass/volume)Ordered By: Reji Reyna on 08-02-2024 Urea nitrogen [Mass/Vol] 16 mg/dL 4-19 [facility] Sodium levelOrdered By: Jas traceynicole Maribell on 08-02-2024 Sodium [Moles/Vol] 137 mmol/L 133-145 [facility] Total proteinOrdered By: Fredy brookegarfield Reyna on 08-02-2024 Protein [Mass/Vol] 7.1 g/dL 5.9-8.4 [facility] White blood cell (WBC) count Ordered By: Reji Reyna 08-02-2024 WBC (Bld) [#/Vol] 6.4 10*3/uL 4.4-11.0 [facility] Clostridium difficile detect ion by polymerase chain reactionOrdered By: Reji Reyna 07-08-2024 C. difficile DNA DEMARCUS+probe Ql (Unsp spec) [facility] Stool lactoferrin detection by immunoassayOrdered By: Reji Reyna 07-08-2024 Lactoferrin IA Ql (Stl) [facility] International normalized rat io (INR) calculationOrdered By: Reji Reyna 07-07-2024 INR Coag (Bld) [Relative time] 1.2 {INR} [facility] Prothrombin timeOrdered By: Reji Reyna 07-07-2024 PT Coag (PPP) [Time] 15.5 s High 11.7-14.[address] [facility] T4 freeOrdered By: Reji Reyna on 07-07-2024 Free T4 [Mass/Vol] 0.80 ng/dL 0.76-1.46 [facility] TSH DL <= 0.005 mIU/L QnOrde red By: Reji Herronrejialyssa on 07-07-2024 TSH Qn 1.430 uIU/mL 0.300-4.200 [facility] Absolute lymphocyte countOrd ered By: Reji Herronrejialyssa on 07-05-2024 Lymphocytes Auto (Unsp spec) [#/Vol] 0.92 10*3/uL 0.83-4.51 [facility] Absolute neutrophil countOrd ered By: Reji Herronrejialyssa on 07-05-2024 Neutrophils (Bld) [#/Vol] 4.1 10*3/uL 2.0-7.7 [facility] Anion gap in Serum or Plasma Ordered By: Reji Reyna on 07-05-2024 Anion gap [Moles/Vol] 9 mmol/L 5-15 [facility] Automated lymphocyte count a s percentage of total leukocytesOrdered By: Reji Reyna on 07-05-2024 Lymphocytes/100 WBC Auto (Unsp spec) 15.9 % Low 19-41 [facility] BUN/creatinine ratioOrdered By: Reji Herronrejialyssa on 07-05-2024 Urea nitrogen/Creatinine [Mass ratio] 20.6 mg/mg High 10-20 [facility] Basophil percentageOrdered B y: Reji Herronrejialyssa on 07-05-2024 Basophils/100 WBC (Bld) 0.5 % 0-1 [facility] Bilirubin, totalOrdered By: Reji Reyna on 07-05-2024 Bilirubin [Mass/Vol] 0.72 mg/dL 0.00-1.[address] [facility] Carbon dioxide, total [Moles /volume] in Central venous bloodOrdered By: Reji Reyna on 07-05-2024 CO2 [Moles/Vol] 24.8 mmol/L 21.0-32.0 [facility] Chloride assayOrdered By: Angelito Reyna on 07-05-2024 Chloride [Moles/Vol] 103 mmol/L 98-[address] [facility] Eosinophil percentageOrdered By: Reji Reyna on 07-05-2024 Eosinophils/100 WBC (Bld) 1.2 % 0-5 [facility] Erythrocyte distribution wid th ratioOrdered By: Reji Reyna on 07-05-2024 Erythrocyte distribution width (RBC) [Ratio] 15.9 % High 11.6-14.6 [facility] Erythrocyte distribution wid th standard deviationOrdered By: arline Reyna on 07-05-2024 Erythrocyte distribution width (RBC) [Ratio] 55.2 fl High 35.1-43.9 [facility] Glomerular filtration rate ( GFR) estimation/1.73 sq m using serum, plasma, or whole bOrdered By: Reji Reyna on 07-05-2024 GFR/1.73 sq M.predicted among non-blacks MDRD (S/P/Bld) [Vol rate/Area] 87 mL/min/{1.73_m2} >60 [facility] Comment on above: mL/min/1.73m2 CKD-EP I Creatinine Equation (2020) Hematocrit Auto (Bld) [Volum e fraction]Ordered By: Reji Reyna on 07-05-2024 Hematocrit (Bld) [Volume fraction] 31.0 % Low 37-47 [facility] Hemoglobin A1c percentageOrd ered By: Reji Reyna on 07-05-2024 HbA1c (Bld) [Mass fraction] 5.0 % <5.7 [facility] Comment on above: Normal < 5.7 % Predi abetic 5.7 - 6.4 % Diabetic >or= 6.5 % Please note range changes. Hemoglobin measurementOrdere d By: Reji Reyna on 07-05-2024 Hemoglobin (Bld) [Mass/Vol] 10.3 g/dL Low 12.0-15.0 [facility] Immature granulocytes/100 WB C Auto (Bld)Ordered By: Reji Reyna on 07-05-2024 Immature granulocytes/100 WBC (Bld) 0.700 % 0.0-0.9 [facility] Comment on above: IG% - Immature Granu locytes (promyelocytes, myelocytes and metamyelocytes) > 1% indicates that a LEFT SHIFT is Present. Laboratory - Chemistry and C hemistry - challengeOrdered By: Reji Reyna on 07-05-2024 AST [Catalytic activity/Vol] 32 U/L <32 [facility] MCV (mean corpuscular volume ) determinationOrdered By: Reji Reyna on 07-05-2024 MCV (RBC) [Entitic vol] 95.7 fL 81-99 [facility] Mean corpuscular hemoglobin (MCH) determinationOrdered By: [facility] Reyn[facility] on 07-05-2024 MCH (RBC) [Entitic mass] 31.8 pg 27.0-32.0 [facility] Mean corpuscular hemoglobin concentration (MCHC) determinationOrdered By: Reji Reyna on 07-05-2024 MCHC (RBC) [Mass/Vol] 33.2 g/dL 32-36 [facility] Mean platelet volume determi nationOrdered By: Reji Reyna on 07-05-2024 Platelet mean volume (Bld) [Entitic vol] 9.6 fL 6.2-12.0 [facility] Monocyte percentageOrdered B y: Reji Reyna on 07-05-2024 Monocytes/100 WBC (Bld) 11.3 % High 0-10 [facility] Neutrophil percentageOrdered By: meryleast branchgarfield Reyna on 07-05-2024 Neutrophils/100 WBC (Bld) 70.4 % High 47-70 [facility] Nucleated red blood cell per centageOrdered By: meryleast branchgarfield Reyna on 07-05-2024 Nucleated RBC/100 WBC (Bld) [Ratio] 0 % 0-5 [facility] Platelet countOrdered By: Angelito Reyna on 07-05-2024 Platelets (Bld) [#/Vol] 151 10*3/uL 150-450 [facility] Potassium measurement (mass/ volume)Ordered By: Reji Reyna on 07-05-2024 Potassium (Unsp spec) [Mass/Vol] 4.0 mmol/L 3.3-5.1 [facility] RBC Auto (Bld) [#/Vol]Ordere d By: Reji Reyna on 07-05-2024 RBC (Bld) [#/Vol] 3.24 10*6/uL Low 4.2-5.4 [facility] Serum creatinine measurement (mass/volume)Ordered By: Reji Reyna on 07-05-2024 Creatinine [Mass/Vol] 0.59 mg/dL Low 0.70-1.20 [facility] Serum globulin measurementOr dered By: Reji Reyna on 07-05-2024 Globulin (S) [Mass/Vol] 3.3 g/dL 2.2-4.2 [facility] Serum glucose measurement (m ass/volume)Ordered By: Reji Reyna on 07-05-2024 Glucose [Mass/Vol] 76 mg/dL 70-99 [facility] Serum or plasma alanine cheatham otransferase (ALT) measurementOrdered By: Reji Reyna on 07-05-2024 ALT [Catalytic activity/Vol] 23 U/L <35 [facility] Serum or plasma albumin yonatan urement (mass/volume)Ordered By: Reji Reyna 07-05-2024 Albumin [Mass/Vol] 2.9 g/dL Low 3.4-4.8 [facility] Serum or plasma albumin/glob ulin mass ratioOrdered By: Reji Reyna 07-05-2024 Albumin/Globulin [Mass ratio] 0.9 {ratio} 0.9-2.4 [facility] Serum or plasma alkaline shannon sphatase measurementOrdered By: Reji Reyna 07-05-2024 ALP [Catalytic activity/Vol] 46 U/L 35-104 [facility] Serum or plasma calcium yonatan urement (mass/volume)Ordered By: Reji Reyna on 07-05-2024 Calcium [Mass/Vol] 8.9 mg/dL 7.6-11.0 [facility] Serum or plasma urea nitroge n measurement (mass/volume)Ordered By: Reji Reyna 07-05-2024 Urea nitrogen [Mass/Vol] 12 mg/dL 4-19 [facility] Sodium levelOrdered By: Jas Reyna on 07-05-2024 Sodium [Moles/Vol] 137 mmol/L 133-145 [facility] Total proteinOrdered By: Fredy Reyna on 07-05-2024 Protein [Mass/Vol] 6.3 g/dL 5.9-8.4 [facility] White blood cell (WBC) count Ordered By: Reji Reyna on 07-05-2024 WBC (Bld) [#/Vol] 5.8 10*3/uL 4.4-11.0 [facility] Hemoglobin A1c percentageOrd ered By: Reji Reyna on 06-16-2024 HbA1c (Bld) [Mass fraction] 5.0 % Low >5.7 [facility] CBC W Auto Differential pane l (Bld)on 06-11-2024 Basophils (Bld) [#/Vol] [facility] Basophils/100 WBC (Bld) 0.3 % [facility] Differential cell count method Nom (Bld) Auto [facility] Eosinophils (Bld) [#/Vol] [facility] Eosinophils/100 WBC (Bld) 0.1 % [facility] Erythrocyte distribution width (RBC) [Ratio] 15.7 % High 11.5 - 15.0 % [facility] Hematocrit (Bld) [Volume fraction] 34.9 % Low 36.0 - 46.0 % [facility] Hemoglobin (Bld) [Mass/Vol] 11 g/dL Low 11.5 - 15.5 g/dL [facility] Immature granulocytes (Bld) [#/Vol] 0.06 10*3/uL [facility] Immature granulocytes/100 WBC (Bld) 0.8 % [facility] Interpretation and review of laboratory results Abnormal [facility] Lymphocytes (Bld) [#/Vol] 0.5 10*3/uL Low [facility] Lymphocytes/100 WBC (Bld) 7 % [facility] MCH (RBC) [Entitic mass] 30.6 pg 26.0 - 34.0 pg [facility] MCHC (RBC) [Mass/Vol] 31.5 g/dL 30.5 - 36.0 g/dL [facility] MCV (RBC) [Entitic vol] 97.2 fL 80.0 - 100.0 fL [facility] Monocytes (Bld) [#/Vol] 0.52 10*3/uL [facility] Monocytes/100 WBC (Bld) 7.3 % [facility] Neutrophils (Bld) [#/Vol] 6 10*3/uL [facility] Neutrophils/100 WBC (Bld) 84.5 % [facility] Nucleated RBC (Bld) [#/Vol] NINF [facility] Nucleated RBC/100 WBC (Bld) [Ratio] 0 % /100 WBC [facility] Platelet mean volume (Bld) [Entitic vol] 9.8 fL 9.0 - 12.7 fL [facility] Platelets (Bld) [#/Vol] 141 10*3/uL Low [facility] RBC (Bld) [#/Vol] 3.59 10*6/uL Low 3.90 - 5.2 0 m/uL [facility] WBC (Bld) [#/Vol] 7.11 10*3/uL [facility] Comprehensive metabolic 2000 panelOrdered By: Pam Tate on 06-11-2024 Albumin [Mass/Vol] 3.5 g/dL Low 3.9 - 4.9 g/dL [facility] ALP [Catalytic activity/Vol] 64 U/L 34 - 123 U/L [facility] ALT [Catalytic activity/Vol] 26 U/L 7 - 38 U/L [facility] Anion gap [Moles/Vol] 11 mmol/L 8 - 15 mmol/L [facility] AST [Catalytic activity/Vol] 28 U/L 13 - 35 U/L [facility] Bilirubin [Mass/Vol] 0.6 mg/dL 0.2 - 1 .3 mg/dL [facility] Calcium [Mass/Vol] 9.1 mg/dL 8.5 - 10. 2 mg/dL [facility] Chloride [Moles/Vol] 104 mmol/L 98 - 10 7 mmol/L [facility] CO2 [Moles/Vol] 23 mmol/L 22 - 30 mmol/L [facility] Creatinine [Mass/Vol] 0.59 mg/dL 0.58 - 0.96 mg/dL [facility] GFR/1.73 sq M.predicted among non-blacks MDRD (S/P/Bld) [Vol rate/Area] 87 mL/min/{1.73_m2} - PINF [facility] Comment on above: Estimated Glomerular Filtration Rate [...] 240 mg/dL High 74 - 99 mg/dL [facility] Comment on above: The [place] Diabete [place] Association (ADA) provides guidance for [...] Medical Care in Diabetes 2016, [place] Diabetes Association. Diabetes Care. 2016.39(Suppl 1). Interpretation and review of laboratory results Abnormal [facility] Potassium [Moles/Vol] 4.4 mmol/L 3.7 - 5.1 mmol/L [facility] Protein [Mass/Vol] 7.3 g/dL 6.3 - 8.0 g/dL [facility] Sodium [Moles/Vol] 138 mmol/L 136 - 144 mmol/L [facility] Urea nitrogen [Mass/Vol] 18 mg/dL 7 - 21 mg/dL [facility] Absolute lymphocyte countOrd ered By: Reji Reyna on 05-31-2024 Lymphocytes Auto (Unsp spec) [#/Vol] 1.03 10*3/uL 0.83-4.51 [facility] Absolute neutrophil countOrd ered By: Reji Reyna on 05-31-2024 Neutrophils (Bld) [#/Vol] 3.8 10*3/uL 2.0-7.7 [facility] Anion gap in Serum or Plasma Ordered By: Reji Reyna on 05-31-2024 Anion gap [Moles/Vol] 9 mmol/L 5-15 [facility] Automated lymphocyte count a s percentage of total leukocytesOrdered By: Reji Reyna on 05-31-2024 Lymphocytes/100 WBC Auto (Unsp spec) 18.6 % Low 19-41 [facility] BUN/creatinine ratioOrdered By: Reji Reyna on 05-31-2024 Urea nitrogen/Creatinine [Mass ratio] 23.4 mg/mg High 10-20 [facility] Basophil percentageOrdered B y: Reji Reyna on 05-31-2024 Basophils/100 WBC (Bld) 0.5 % 0-1 [facility] Bilirubin, totalOrdered By: Reji Reyna on 05-31-2024 Bilirubin [Mass/Vol] 0.51 mg/dL 0.00-1.[address] [facility] Carbon dioxide, total [Moles /volume] in Central venous bloodOrdered By: Reji Reyna on 05-31-2024 CO2 [Moles/Vol] 23.7 mmol/L 21.0-32.0 [facility] Chloride assayOrdered By: Angelito merylshine Reyna on 05-31-2024 Chloride [Moles/Vol] 105 mmol/L 98-[address] [facility] Eosinophil percentageOrdered By: Reji Reyna on 05-31-2024 Eosinophils/100 WBC (Bld) 1.3 % 0-5 [facility] Erythrocyte distribution wid th (RBC) [Ratio]Ordered By: Reji Reyna on 05-31-2024 Erythrocyte distribution width (RBC) [Entitic vol] 56.2 fL High 35.1-43.9 [facility] Erythrocyte distribution wid th ratioOrdered By: Reji Herronrejialyssa on 05-31-2024 Erythrocyte distribution width (RBC) [Ratio] 15.9 % High 11.6-14.6 [facility] Erythrocyte distribution wid th standard deviationOrdered By: Reji Reyna on 05-31-2024 Erythrocyte distribution width (RBC) [Ratio] 56.2 fl High 35.1-43.9 [facility] GFR/1.73 sq M.predicted lei g non-blacks MDRD (S/P/Bld) [Vol rate/Area]Ordered By: Reji Reyna on 05-31-2024 Estimated GFR (MDRD) Non-Af Amer 85 >60 [facility] Comment on above: mL/min/1.73m2 CKD-EP I Creatinine Equation (2020) Glomerular filtration rate ( GFR) estimation/1.73 sq m using serum, plasma, or whole bOrdered By: Reji Reyna on 05-31-2024 GFR/1.73 sq M.predicted among non-blacks MDRD (S/P/Bld) [Vol rate/Area] 85 mL/min/{1.73_m2} >60 [facility] Comment on above: mL/min/1.73m2 CKD-EP I Creatinine Equation (2020) Hematocrit Auto (Bld) [Volum e fraction]Ordered By: Reji Reyna on 05-31-2024 Hematocrit (Bld) [Volume fraction] 30.7 % Low 37-47 [facility] Hemoglobin measurementOrdere d By: Reji Reyna on 05-31-2024 Hemoglobin (Bld) [Mass/Vol] 9.7 g/dL Low 12.0-15.0 [facility] Immature granulocytes/100 WB C Auto (Bld)Ordered By: Reji Reyna on 05-31-2024 Immature granulocytes/100 WBC (Bld) 0.400 % 0.0-0.9 [facility] Comment on above: IG% - Immature Granu locytes (promyelocytes, myelocytes and metamyelocytes) > 1% indicates that a LEFT SHIFT is Present. Laboratory - Chemistry and C hemistry - challengeOrdered By: Reji Reyna on 05-31-2024 AST [Catalytic activity/Vol] 29 U/L <32 [facility] Lymphocytes Auto (Unsp spec) [#/Vol]Ordered By: Reji Reyna on 05-31-2024 Lymphocytes (Bld) [#/Vol] 1.03 10*3/uL 0.83-4.51 [facility] Lymphocytes/100 WBC Auto (Un sp spec)Ordered By: Angelitomerylmichaelgarfield Herronrejialyssa on 05-31-2024 Lymphocytes/100 WBC (Bld) 18.6 % Low 19-41 [facility] MCV (mean corpuscular volume ) determinationOrdered By: Angelitomerylshine Gopalrejialyssa on 05-31-2024 MCV (RBC) [Entitic vol] 96.8 fL 81-99 [facility] Mean corpuscular hemoglobin (MCH) determinationOrdered By: Reji Gopalrejialyssa on 05-31-2024 MCH (RBC) [Entitic mass] 30.6 pg 27.0-32.0 [facility] Mean corpuscular hemoglobin concentration (MCHC) determinationOrdered By: Angelitomerylmichaelgarfield Herronrejialyssa on 05-31-2024 MCHC (RBC) [Mass/Vol] 31.6 g/dL Low 32-36 [facility] Mean platelet volume determi nationOrdered By: Angelitomerylshine Gopalrejialyssa on 05-31-2024 Platelet mean volume (Bld) [Entitic vol] 9.8 fL 6.2-12.0 [facility] Monocyte percentageOrdered B y: Reji Gopalrejialyssa on 05-31-2024 Monocytes/100 WBC (Bld) 10.3 % High 0-10 [facility] Neutrophil percentageOrdered By: Reji Gopalrejialyssa on 05-31-2024 Neutrophils/100 WBC (Bld) 68.9 % 47-70 [facility] Nucleated red blood cell per centageOrdered By: Angelitomerylshine Gopalrejialyssa on 05-31-2024 Nucleated RBC/100 WBC (Bld) [Ratio] 0 % 0-5 [facility] Platelet countOrdered By: Angelito arline Gopalrejialyssa on 05-31-2024 Platelets (Bld) [#/Vol] 126 10*3/uL Low 150-450 [facility] Potassium (Unsp spec) [Mass/ Vol]Ordered By: Angelitomerylmichaelgarfield Herronrejialyssa on 05-31-2024 Potassium [Moles/Vol] 4.0 mmol/L 3.3-5.1 [facility] Potassium measurement (mass/ volume)Ordered By: Reji Herronrejialyssa on 05-31-2024 Potassium (Unsp spec) [Mass/Vol] 4.0 mmol/L 3.3-5.1 [facility] RBC Auto (Bld) [#/Vol]Ordere d By: Reji Reyna on 05-31-2024 RBC (Bld) [#/Vol] 3.17 10*6/uL Low 4.2-5.4 [facility] Serum creatinine measurement (mass/volume)Ordered By: Reji Reyna on 05-31-2024 Creatinine [Mass/Vol] 0.65 mg/dL Low 0.70-1.20 [facility] Serum globulin measurementOr dered By: Reji Reyna on 05-31-2024 Globulin (S) [Mass/Vol] 3.4 g/dL 2.2-4.2 [facility] Serum glucose measurement (m ass/volume)Ordered By: Reji Reyna on 05-31-2024 Glucose [Mass/Vol] 76 mg/dL 70-99 [facility] Serum or plasma alanine cheatham otransferase (ALT) measurementOrdered By: Reji Reyna on 05-31-2024 ALT [Catalytic activity/Vol] 29 U/L <35 [facility] Serum or plasma albumin yonatan urement (mass/volume)Ordered By: Reji Reyna on 05-31-2024 Albumin [Mass/Vol] 3.1 g/dL Low 3.4-4.8 [facility] Serum or plasma albumin/glob ulin mass ratioOrdered By: Reji Reyna 05-31-2024 Albumin/Globulin [Mass ratio] 0.9 {ratio} 0.9-2.4 [facility] Serum or plasma alkaline shannon sphatase measurementOrdered By: Reji Reyna on 05-31-2024 ALP [Catalytic activity/Vol] 49 U/L 35-104 [facility] Serum or plasma calcium yonatan urement (mass/volume)Ordered By: Reji Reyna on 05-31-2024 Calcium [Mass/Vol] 9.0 mg/dL 7.6-11.0 [facility] Serum or plasma urea nitroge n measurement (mass/volume)Ordered By: Reji Reyna on 05-31-2024 Urea nitrogen [Mass/Vol] 15 mg/dL 4-19 [facility] Sodium levelOrdered By: Jas shine Maribell on 05-31-2024 Sodium [Moles/Vol] 138 mmol/L 133-145 [facility] Total proteinOrdered By: Fredy edwardogarfield Reyna on 05-31-2024 Protein [Mass/Vol] 6.5 g/dL 5.9-8.4 [facility] Vitamin D, 25-hydroxyOrdered By: Reji Reyna on 05-31-2024 Vitamin D 25-Hydroxy 32.7 ng/mL 30-[address] [facility] Comment on above: Vitamin D StatusDefi ciency: <20 ng/mL (50nmol/L)Insufficiency: 20-30 ng/mL (50-75 nmol/L)Sufficiency: 30-100 ng/mL (75-250 nmol/L)Toxicity: >100 ng/mL (>250 nmol/L) White blood cell (WBC) count Ordered By: Reji Reyna on 05-31-2024 WBC (Bld) [#/Vol] 5.6 10*3/uL 4.4-11.0 [facility] Bacteria LM.HPF (Urine sed) [#/Area]Ordered By: Reji Reyna on 05-13-2024 Urine Bacteria RARE /hpf None Seen [facility] Bilirubin Test strip Ql (U)O rdered By: Reji Reyna on 05-13-2024 Bilirubin Ql (U) Negative Negative [facility] Epithelial cells.squamous LM Ql (Urine sed)Ordered By: Reji Reyna on 05-13-2024 Epithelial cells.squamous LM.HPF (Urine sed) [#/Area] 0 /[HPF] 5-10 [facility] Glucose Ql (U)Ordered By: Angelito Reyna on 05-13-2024 Urine Glucose (UA) Normal mg/dl Normal [facility] Ketones Test strip Ql (U)Ord ered By: Reji Reyna on 05-13-2024 Ketones Ql (U) Negative Negative [facility] Microscopic analysis of urin e for red blood cells (RBC)Ordered By: Reji Reyna on 05-13-2024 Microscopic analysis of urine for red blood cells (RBC) 0-5 SEEN /hpf 0-5 [facility] Urine RBC 0-5 SEEN /hpf 0-5 [facility] Mucus LM Ql (Urine sed)Order ed By: Reji Reyna on 05-13-2024 Mucus Ql (Urine sed) 0 SEEN /hpf [facility] Nitrite Test strip Ql (U)Ord ered By: Reji Reyna on 05-13-2024 Nitrite Ql (U) Positive High Negative [facility] Protein Test strip Ql (U)Ord ered By: Reji Reyna on 05-13-2024 Protein Ql (U) Negative Negative [facility] Squamous epithelial cells de tection in urine sediment by light microscopyOrdered By: Reji Reyna on 05-13-2024 Epithelial cells.squamous LM Ql (Urine sed) 0-5 SEEN /hpf 5-10 [facility] Urine blood detectionOrdered By: Reji Reyna on 05-13-2024 Urine Occult Blood 10 /ul High Negative [facility] Urine clarityOrdered By: Fredy Reyna on 05-13-2024 Clarity (U) Clear Clear [facility] Urine color determinationOrd ered By: Reji Reyna on 05-13-2024 Color (U) Yellow Yellow [facility] Urine cultureOrdered By: Fredy Reyna on 05-13-2024 Bacteria identified Cx Nom (U) Escherichia coli Abnormal [facility] Urine glucose detectionOrder ed By: Reji Reyna on 05-13-2024 Glucose Ql (U) Normal mg/dl Normal [facility] Urine leukocyte esterase det ection by dipstickOrdered By: Reji Reyna on 05-13-2024 Leukocyte esterase Test strip Ql (U) 100 /ul High Negative [facility] Urine pHOrdered By: Deloris Reyna on 05-13-2024 pH (U) 6.5 [pH] 5.0 - 8.0 [facility] Urine sediment bacteria coun t by microscopy (number/high power field)Ordered By: Reji Reyna on 05-13-2024 Bacteria LM.HPF (Urine sed) [#/Area] RARE /hpf None Seen [facility] Urine specific gravity measu rementOrdered By: Reji Reyna on 05-13-2024 Specific gravity (U) [Rel density] 1.010 1.002-1.030 [facility] Urine urobilinogen measureme ntOrdered By: Reji Reyna on 05-13-2024 Urobilinogen Ql (U) Normal mg/dl Normal [facility] Urobilinogen Ql (U)Ordered B y: Jasmichaelgarfield Herronrejialyssa on 05-13-2024 Urine Urobilinogen Normal mg/dl Normal [facility] White blood cell countOrdere d By: Reji Reyna on 05-13-2024 Urine WBC 0-5 SEEN /hpf 0-5 [facility] White blood cell count 0-5 SEEN /hpf 0-5 [facility] Absolute lymphocyte countOrd ered By: Reji Reyna on 05-03-2024 Lymphocytes Auto (Unsp spec) [#/Vol] 1.13 10*3/uL 0.83-4.51 [facility] Absolute neutrophil countOrd ered By: Reji Reyna on 05-03-2024 Neutrophils (Bld) [#/Vol] 5.1 10*3/uL 2.0-7.7 [facility] Albumin to globulin ratioOrd ered By: Reji Reyna on 05-03-2024 Albumin/Globulin [Mass ratio] 0.5 {ratio} Low 0.9-2.4 [facility] Automated lymphocyte count a s percentage of total leukocytesOrdered By: Reji Reyna on 05-03-2024 Lymphocytes/100 WBC Auto (Unsp spec) 16.1 % Low 19-41 [facility] Basophil percentageOrdered B y: Jasmichaelgarfield Herronrejialyssa on 05-03-2024 Basophils/100 WBC (Bld) 0.6 % 0-1 [facility] Bilirubin Test strip Ql (U)O rdered By: Reji Reyna on 05-03-2024 Bilirubin Ql (U) Negative Negative [facility] Bilirubin, totalOrdered By: Reji Reyna on 05-03-2024 Bilirubin [Mass/Vol] 0.60 mg/dL 0.20-1.[address] [facility] Comment on above: For patients on eltr ombopag therapy, use of Dimension [place] TBIL is not recommended. Blood urea nitrogen (BUN)/cr eatinine ratioOrdered By: Reji Reyna on 05-03-2024 Urea nitrogen/Creatinine [Mass ratio] 22.8 mg/mg High 10-20 [facility] Carbon dioxide measurementOr dered By: Reji Reyna on 05-03-2024 CO2 [Moles/Vol] 26.0 mmol/L 21.0-32.0 [facility] Chloride measurementOrdered By: Reji Reyna on 05-03-2024 Chloride [Moles/Vol] 108 mmol/L High 98-[address] [facility] Eosinophil percentageOrdered By: Reji Reyna on 05-03-2024 Eosinophils/100 WBC (Bld) 1.1 % 0-5 [facility] Erythrocyte distribution wid th (RBC) [Ratio]Ordered By: Reji Reyna on 05-03-2024 Erythrocyte distribution width (RBC) [Entitic vol] 62.4 fL High 35.1-43.9 [facility] Erythrocyte distribution wid th ratioOrdered By: Reji Reyna on 05-03-2024 Erythrocyte distribution width (RBC) [Ratio] 17.4 % High 11.6-14.6 [facility] Erythrocyte distribution wid th standard deviationOrdered By: Reji Reyna on 05-03-2024 Erythrocyte distribution width (RBC) [Ratio] 62.4 fl High 35.1-43.9 [facility] Estimated glomerular filtrat ion rate (GFR) AmericanOrdered By: Reji Reyna on 05-03-2024 Estimated GFR (MDRD) Amer 95 mL/min >60 [facility] Comment on above: GFR Calc Glomerular filtration rate ( GFR) estimationOrdered By: Reji Reyna on 05-03-2024 Estimated GFR (MDRD) Non-Af Amer 78 mL/min >60 [facility] Comment on above: Non- GFR Calc GFR/1.73 sq M.predicted among non-blacks MDRD (S/P/Bld) [Vol rate/Area] 78 mL/min/{1.73_m2} >60 [facility] Comment on above: Non- GFR Calc Glucose Ql (U)Ordered By: Angelito brunildagarfield Herronrejialyssa on 05-03-2024 Urine Glucose (UA) Normal mg/dl Normal [facility] Glucose measurementOrdered B y: Reji Gopalosvaldo on 05-03-2024 Glucose [Mass/Vol] 69 mg/dL Low 74-106 [facility] Hematocrit Auto (Bld) [Volum e fraction]Ordered By: Jamisongarfield Herronrejialyssa on 05-03-2024 Hematocrit (Bld) [Volume fraction] 29.8 % Low 37-47 [facility] Hemoglobin measurementOrdere d By: Reji Gopalosvaldo on 05-03-2024 Hemoglobin (Bld) [Mass/Vol] 9.1 g/dL Low 12.0-15.0 [facility] Immature granulocytes/100 WB C Auto (Bld)Ordered By: Jasmichaelgarfield Herronrejialyssa on 05-03-2024 Immature granulocytes/100 WBC (Bld) 0.400 % 0.0-0.9 [facility] Comment on above: IG% - Immature Granu locytes (promyelocytes, myelocytes and metamyelocytes) > 1% indicates that a LEFT SHIFT is Present. Ketones Test strip Ql (U)Ord ered By: Reji Reyna on 05-03-2024 Ketones Ql (U) Negative Negative [facility] Laboratory - Chemistry and C hemistry - challengeOrdered By: Angelitomerylmichaelgarfield Herronrejialyssa on 05-03-2024 AST [Catalytic activity/Vol] 34 U/L 15-37 [facility] Lymphocytes Auto (Unsp spec) [#/Vol]Ordered By: Angelitomerylmichaelgarfield Herronrejialyssa on 05-03-2024 Lymphocytes (Bld) [#/Vol] 1.13 10*3/uL 0.83-4.51 [facility] Lymphocytes/100 WBC Auto (Un sp spec)Ordered By: Reji Herronrejialyssa on 05-03-2024 Lymphocytes/100 WBC (Bld) 16.1 % Low 19-41 [facility] MCV (mean corpuscular volume ) determinationOrdered By: Reji Reyna on 05-03-2024 MCV (RBC) [Entitic vol] 99.0 fL 81-99 [facility] Mean corpuscular hemoglobin (MCH) determinationOrdered By: Reji Reyna on 05-03-2024 MCH (RBC) [Entitic mass] 30.2 pg 27.0-32.0 [facility] Mean corpuscular hemoglobin concentration (MCHC) determinationOrdered By: Reji Reyna on 05-03-2024 MCHC (RBC) [Mass/Vol] 30.5 g/dL Low 32-36 [facility] Mean platelet volume determi nationOrdered By: Reji Reyna on 05-03-2024 Platelet mean volume (Bld) [Entitic vol] 9.4 fL 6.2-12.0 [facility] Monocyte percentageOrdered B y: Reji Reyna on 05-03-2024 Monocytes/100 WBC (Bld) 9.7 % 0-10 [facility] Neutrophil percentageOrdered By: Reji Reyna on 05-03-2024 Neutrophils/100 WBC (Bld) 72.1 % High 47-70 [facility] Nitrite Test strip Ql (U)Ord ered By: Reji Reyna on 05-03-2024 Nitrite Ql (U) Negative Negative [facility] Nucleated red blood cell per centageOrdered By: Reji Reyna on 05-03-2024 Nucleated RBC/100 WBC (Bld) [Ratio] 0 % 0-5 [facility] Platelet countOrdered By: Angelito Reyna on 05-03-2024 Platelets (Bld) [#/Vol] 163 10*3/uL 150-450 [facility] Potassium measurementOrdered By: Reji Reyna on 05-03-2024 Potassium [Moles/Vol] 4.3 mmol/L 3.5-5.1 [facility] Protein Test strip Ql (U)Ord ered By: Reji Reyna on 05-03-2024 Protein Ql (U) Negative Negative [facility] RBC Auto (Bld) [#/Vol]Ordere d By: Reji Reyna on 05-03-2024 RBC (Bld) [#/Vol] 3.01 10*6/uL Low 4.2-5.4 [facility] Serum anion gap measurementO rdered By: Reji Reyna on 05-03-2024 Anion gap [Moles/Vol] 7 mmol/L 5-15 [facility] Serum globulin measurementOr dered By: Reji Reyna on 05-03-2024 Globulin (S) [Mass/Vol] 4.8 g/dL High 2.2-4.2 [facility] Serum or plasma alanine cheatham otransferase (ALT) measurementOrdered By: Reji Reyna on 05-03-2024 ALT [Catalytic activity/Vol] 31 U/L 13-56 [facility] Serum or plasma albumin yonatan urement (mass/volume)Ordered By: Reji Reyna on 05-03-2024 Albumin [Mass/Vol] 2.3 g/dL Low 3.2-5.0 [facility] Serum or plasma alkaline shannon sphatase measurementOrdered By: Reji Reyna on 05-03-2024 ALP [Catalytic activity/Vol] 57 U/L 45-117 [facility] Serum or plasma calcium yonatan urement (mass/volume)Ordered By: Reji Reyna on 05-03-2024 Calcium [Mass/Vol] 8.9 mg/dL 8.5-10.1 [facility] Serum or plasma creatinine m easurement (mass/volume)Ordered By: Reji Reyna on 05-03-2024 Creatinine [Mass/Vol] 0.74 mg/dL 0.55-1.02 [facility] Comment on above: The validity of the calculated GFR & GFRAA in patients over 70 years has not been determined. Clinical correlation is essential. Serum or plasma thyroid stim ulating hormone (TSH) measurement (units/volume)Ordered By: Reji Reyna on 05-03-2024 TSH Qn 1.850 uIU/mL 0.358-3.740 [facility] Serum or plasma urea nitroge n measurement (mass/volume)Ordered By: Reji Reyna on 05-03-2024 Urea nitrogen [Mass/Vol] 17 mg/dL 7-18 [facility] Sodium levelOrdered By: Jas Reyna on 05-03-2024 Sodium [Moles/Vol] 141 mmol/L 136-145 [facility] TSH QnOrdered By: Reji Reyna on 05-03-2024 Thyroid Stimulating Hormone (TSH) 1.850 uIU/mL 0.358-3.740 [facility] Total proteinOrdered By: Fredy Reyna on 05-03-2024 Protein [Mass/Vol] 7.1 g/dL 6.4-8.2 [facility] Urine blood detectionOrdered By: Reji Reyna on 05-03-2024 Urine Occult Blood 50 /ul High Negative [facility] Urine clarityOrdered By: Fredy Reyna on 05-03-2024 Clarity (U) Sl. Cloudy Clear [facility] Urine color determinationOrd ered By: Reji Reyna on 05-03-2024 Color (U) Yellow Yellow [facility] Urine cultureOrdered By: Fredy Reyna on 05-03-2024 Bacteria identified Cx Nom (U) Presumptive E. coli Abnormal [facility] Urine glucose detectionOrder ed By: Reji Reyna on 05-03-2024 Glucose Ql (U) Normal mg/dl Normal [facility] Urine leukocyte esterase det ection by dipstickOrdered By: Reji Reyna on 05-03-2024 Leukocyte esterase Test strip Ql (U) 500 /ul High Negative [facility] Urine pHOrdered By: Deloris Reyna on 05-03-2024 pH (U) 6.5 [pH] 5.0 - 8.0 [facility] Urine specific gravity measu rementOrdered By: Reji Reyna on 05-03-2024 Specific gravity (U) [Rel density] 1.010 1.002-1.030 [facility] Urine urobilinogen measureme ntOrdered By: Reji Reyna on 05-03-2024 Urobilinogen Ql (U) Normal mg/dl Normal [facility] Urobilinogen Ql (U)Ordered B y: Reji Reyna on 05-03-2024 Urine Urobilinogen Normal mg/dl Normal [facility] White blood cell (WBC) count Ordered By: Reji Reyna on 05-03-2024 WBC (Bld) [#/Vol] 7.0 10*3/uL 4.4-11.0 [facility] Copper, serumOrdered By: Fredy Reyna on 04-23-2024 Serum Copper 93 ug/dL 80-158 [facility] Comment on above: Detection Limit = 5P erformed at: [facility] [id number] Director: Jeremiah Bates MD, Phone: [phone] Absolute lymphocyte countOrd ered By: Reji Reyna on 04-05-2024 Lymphocytes Auto (Unsp spec) [#/Vol] 0.90 10*3/uL 0.83-4.51 [facility] Absolute neutrophil countOrd ered By: Reji Reyna on 04-05-2024 Neutrophils (Bld) [#/Vol] 3.6 10*3/uL 2.0-7.7 [facility] Albumin to globulin ratioOrd ered By: Reji Reyna on 04-05-2024 Albumin/Globulin [Mass ratio] 0.5 {ratio} Low 0.9-2.4 [facility] Automated lymphocyte count a s percentage of total leukocytesOrdered By: Reji Reyna on 04-05-2024 Lymphocytes/100 WBC Auto (Unsp spec) 17.3 % Low 19-41 [facility] Basophil percentageOrdered B y: Reji Reyna on 04-05-2024 Basophils/100 WBC (Bld) 0.8 % 0-1 [facility] Bilirubin, totalOrdered By: Reji Reyna on 04-05-2024 Bilirubin [Mass/Vol] 0.60 mg/dL 0.20-1.[address] [facility] Comment on above: For patients on eltr ombopag therapy, use of Dimension [place] TBIL is not recommended. Blasts/100 WBC (Bld)Ordered By: Reji Reyna on 04-05-2024 Blast Cells % 0.04 % High 0-0 [facility] Blood band neutrophil count as percentage of total leukocytesOrdered By: Efewongbe Jamese on 04-05-2024 Band form neutrophils/100 WBC (Bld) 0.04 % 0-5 [facility] Blood basophils/100 leukocyt esOrdered By: Efewongbe Jamese on 04-05-2024 Basophils/100 WBC (Bld) 0.04 % 0-1 [facility] Blood blasts/100 leukocytesO rdered By: Efewonggarfield Reyna on 04-05-2024 Blasts/100 WBC (Bld) 0.04 % High 0-[address] [facility] Blood eosinophils/100 leukoc ytesOrdered By: Efewongbe Jamese on 04-05-2024 Eosinophils/100 WBC (Bld) 0.04 % 0-5 [facility] Blood leukocytes other/100 l eukocytesOrdered By: Efmerylongbe Maribell on 04-05-2024 WBC other/100 WBC (Bld) 0.04 % [facility] Blood lymphocytes/100 leukoc ytesOrdered By: Jasonggarfield Reyna on 04-05-2024 Lymphocytes/100 WBC (Bld) 0.04 % Low 19-41 [facility] Blood manual differential co mment interpretation (narrative result)Ordered By: Reji Reyna on 04-05-2024 Manual differential comment Col[place] (Bld) [Interp] SCANNED [facility] Blood metamyelocytes/100 bailee kocytesOrdered By: Efewongbe Jamese on 04-05-2024 Metamyelocytes/100 WBC (Bld) 0.04 % 0-1 [facility] Blood monocytes/100 leukocyt esOrdered By: Efewongbe Gopalghe on 04-05-2024 Monocytes/100 WBC (Bld) 0.04 % 0-10 [facility] Blood promyelocytes/100 leuk ocytesOrdered By: Efewongbe Gopalghe on 04-05-2024 Promyelocytes/100 WBC (Bld) 0.04 % High 0-0 [facility] Blood segmented neutrophils/ 100 leukocytesOrdered By: Reji Reyna on 04-05-2024 Segmented neutrophils/100 WBC (Bld) 0.04 % Low 47-70 [facility] Blood urea nitrogen (BUN)/cr eatinine ratioOrdered By: Reji Reyna on 04-05-2024 Urea nitrogen/Creatinine [Mass ratio] 23.3 mg/mg High 10-20 [facility] Carbon dioxide measurementOr dered By: Reji Reyna on 04-05-2024 CO2 [Moles/Vol] 27.0 mmol/L 21.0-32.0 [facility] Cells counted Molgen (Bld/Ti ss) [#]Ordered By: Reji Reyna on 04-05-2024 Differential Total Cells Counted 0.04 MANUAL DIFF [facility] Chloride measurementOrdered By: Reji Reyna on 04-05-2024 Chloride [Moles/Vol] 108 mmol/L High 98-[address] [facility] Eosinophil percentageOrdered By: Reji Reyna on 04-05-2024 Eosinophils/100 WBC (Bld) 1.3 % 0-5 [facility] Erythrocyte distribution wid th (RBC) [Ratio]Ordered By: Reji Reyna on 04-05-2024 Erythrocyte distribution width (RBC) [Entitic vol] 67.1 fL High 35.1-43.9 [facility] Erythrocyte distribution wid th ratioOrdered By: Reji Reyna on 04-05-2024 Erythrocyte distribution width (RBC) [Ratio] 18.7 % High 11.6-14.6 [facility] Erythrocyte distribution wid th standard deviationOrdered By: Reji Reyna on 04-05-2024 Erythrocyte distribution width (RBC) [Ratio] 67.1 fl High 35.1-43.9 [facility] Estimated glomerular filtrat ion rate (GFR) AmericanOrdered By: Reji Reyna on 04-05-2024 Estimated GFR (MDRD) Amer 104 mL/min >60 [facility] Comment on above: GFR Calc Glomerular filtration rate ( GFR) estimationOrdered By: Reji Reyna on 04-05-2024 Estimated GFR (MDRD) Non-Af Amer 86 mL/min >60 [facility] Comment on above: Non- GFR Calc GFR/1.73 sq M.predicted among non-blacks MDRD (S/P/Bld) [Vol rate/Area] 86 mL/min/{1.73_m2} >60 [facility] Comment on above: Non- GFR Calc Glucose measurementOrdered B y: Jamisongarfield Reyna on 04-05-2024 Glucose [Mass/Vol] 70 mg/dL Low 74-106 [facility] Hematocrit Auto (Bld) [Volum e fraction]Ordered By: Angelitoarline Reyna on 04-05-2024 Hematocrit (Bld) [Volume fraction] 26.8 % Low 37-47 [facility] Hemoglobin measurementOrdere d By: Jasmichaelgarfield Reyna on 04-05-2024 Hemoglobin (Bld) [Mass/Vol] 8.9 g/dL Low 12.0-15.0 [facility] Immature granulocytes/100 WB C Auto (Bld)Ordered By: Reji Reyna on 04-05-2024 Immature granulocytes/100 WBC (Bld) 0.600 % 0.0-0.9 [facility] Comment on above: IG% - Immature Granu locytes (promyelocytes, myelocytes and metamyelocytes) > 1% indicates that a LEFT SHIFT is Present. Laboratory - Chemistry and C hemistry - challengeOrdered By: Reji Reyna on 04-05-2024 AST [Catalytic activity/Vol] 33 U/L 15-37 [facility] Laboratory - Hematology and Cell countsOrdered By: Reji Reyna on 04-05-2024 Anisocytosis Ql (Bld) 2+ [facility] Lymphocytes Auto (Unsp spec) [#/Vol]Ordered By: Angelitoarline Reyna on 04-05-2024 Lymphocytes (Bld) [#/Vol] 0.90 10*3/uL 0.83-4.51 [facility] Lymphocytes/100 WBC Auto (Un sp spec)Ordered By: Reji Reyna on 04-05-2024 Lymphocytes/100 WBC (Bld) 17.3 % Low 19-41 [facility] MCV (mean corpuscular volume ) determinationOrdered By: Reji Reyna on 04-05-2024 MCV (RBC) [Entitic vol] 99.6 fL High 81-99 [facility] Manual differential comment [place] (Bld) [Interp]Ordered By: Reji Reyna on 04-05-2024 Differential Comment SCANNED [facility] Mean corpuscular hemoglobin (MCH) determinationOrdered By: Reji Reyna on 04-05-2024 MCH (RBC) [Entitic mass] 33.1 pg High 27.0-32.0 [facility] Mean corpuscular hemoglobin concentration (MCHC) determinationOrdered By: Reji Reyna on 04-05-2024 MCHC (RBC) [Mass/Vol] 33.2 g/dL 32-36 [facility] Mean platelet volume determi nationOrdered By: Reji Reyna on 04-05-2024 Platelet mean volume (Bld) [Entitic vol] 9.9 fL 6.2-12.0 [facility] Monocyte percentageOrdered B y: Reji Reyna on 04-05-2024 Monocytes/100 WBC (Bld) 10.4 % High 0-10 [facility] Myelocyte %Ordered By: Matias Reyna on 04-05-2024 Myelocytes/100 WBC (Bld) 0.04 % High 0-0 [facility] Neutrophil percentageOrdered By: Reji Reyna on 04-05-2024 Neutrophils/100 WBC (Bld) 69.6 % 47-70 [facility] Nucleated red blood cell per centageOrdered By: Reji Reyna on 04-05-2024 Nucleated RBC/100 WBC (Bld) [Ratio] 0 % 0-5 [facility] Plasma cell percentageOrdere d By: Reji Reyna on 04-05-2024 Plasma Cells % (manual) 0.04 % [facility] Platelet countOrdered By: Angelito Reyna on 04-05-2024 Platelets (Bld) [#/Vol] 163 10*3/uL 150-450 [facility] Potassium measurementOrdered By: Reji Reyna on 04-05-2024 Potassium [Moles/Vol] 4.0 mmol/L 3.5-5.1 [facility] Promyelocytes/100 WBC (Bld)O rdered By: Reji Reyna on 04-05-2024 Promyelocytes % 0.04 % High 0-0 [facility] RBC Auto (Bld) [#/Vol]Ordere d By: Reji Reyna on 04-05-2024 RBC (Bld) [#/Vol] 2.69 10*6/uL Low 4.2-5.4 [facility] Segmented neutrophils/100 WB C (Bld)Ordered By: Reji Reyna on 04-05-2024 Neutrophils/100 WBC (Bld) 0.04 % Low 47-70 [facility] Serum anion gap measurementO rdered By: Reji Reyna on 04-05-2024 Anion gap [Moles/Vol] 4 mmol/L Low 5-15 [facility] Serum globulin measurementOr dered By: Reji Reyna on 04-05-2024 Globulin (S) [Mass/Vol] 5.1 g/dL High 2.2-4.2 [facility] Serum or plasma alanine cheatham otransferase (ALT) measurementOrdered By: Reji Reyna on 04-05-2024 ALT [Catalytic activity/Vol] 28 U/L 13-56 [facility] Serum or plasma albumin yonatan urement (mass/volume)Ordered By: Reji Reyna on 04-05-2024 Albumin [Mass/Vol] 2.3 g/dL Low 3.2-5.0 [facility] Serum or plasma alkaline shannon sphatase measurementOrdered By: Reji Reyna on 04-05-2024 ALP [Catalytic activity/Vol] 64 U/L 45-117 [facility] Serum or plasma calcium yonatan urement (mass/volume)Ordered By: Reji Reyna on 04-05-2024 Calcium [Mass/Vol] 8.8 mg/dL 8.5-10.1 [facility] Serum or plasma creatinine m easurement (mass/volume)Ordered By: Reji Reyna on 04-05-2024 Creatinine [Mass/Vol] 0.69 mg/dL 0.55-1.02 [facility] Comment on above: The validity of the calculated GFR & GFRAA in patients over 70 years has not been determined. Clinical correlation is essential. Serum or plasma urea nitroge n measurement (mass/volume)Ordered By: Reji Reyna on 04-05-2024 Urea nitrogen [Mass/Vol] 16 mg/dL 7-18 [facility] Sodium levelOrdered By: Jas traceynicole Maribell on 04-05-2024 Sodium [Moles/Vol] 139 mmol/L 136-145 [facility] Total cell countOrdered By: Reji Reyna on 04-05-2024 Cells counted Molgen (Bld/Tiss) [#] 0.04 MANUAL DIFF [facility] Total proteinOrdered By: Fredy Reyna on 04-05-2024 Protein [Mass/Vol] 7.4 g/dL 6.4-8.2 [facility] WBC other/100 WBC (Bld)Order ed By: Reji Reyna on 04-05-2024 Other Cells % 0.04 % [facility] White blood cell (WBC) count Ordered By: Reji Reyna on 04-05-2024 WBC (Bld) [#/Vol] 5.2 10*3/uL 4.4-11.0 [facility] [id number] DOrdered By: Alyssa Reyna on 03-02-2024 Vitamin D 25-Hydroxy 35.7 ng/mL [facility] Comment on above: Vitamin D 25(OH) Sta tus Range Deficiency <20 ng/mL (50nmol/L) Insufficiency 20 - 30 ng/mL (50 - 75 nmol/L) Sufficiency 30 - 100 ng/mL (75 - 250 nmol/L) Toxicity >100 ng/mL (>250 nmol/L) Absolute neutrophil countOrd ered By: Reji Reyna on 03-01-2024 Neutrophils (Bld) [#/Vol] 4.2 10*3/uL 2.0-7.7 [facility] Albumin to globulin ratioOrd ered By: Reji Reyna on 03-01-2024 Albumin/Globulin [Mass ratio] 0.4 {ratio} Low 0.9-2.4 [facility] Basophil percentageOrdered B y: Reji Reyna on 03-01-2024 Basophils/100 WBC (Bld) 0.7 % 0-1 [facility] Bilirubin, totalOrdered By: Angelitomerylshine Gopalrejialyssa on 03-01-2024 Bilirubin [Mass/Vol] 0.50 mg/dL 0.20-1.[address] [facility] Comment on above: For patients on eltr ombopag therapy, use of Dimension [place] TBIL is not recommended. Blood urea nitrogen (BUN)/cr eatinine ratioOrdered By: Reji Reyna on 03-01-2024 Urea nitrogen/Creatinine [Mass ratio] 20.9 mg/mg High 10-20 [facility] Carbon dioxide measurementOr dered By: Reji Herronrejialyssa on 03-01-2024 CO2 [Moles/Vol] 22.0 mmol/L 21.0-32.0 [facility] Chloride measurementOrdered By: Angelitoarline Herronosvaldo on 03-01-2024 Chloride [Moles/Vol] 108 mmol/L High 98-[address] [facility] Eosinophil percentageOrdered By: Angelitomerylmichaelgarfield Herronrejialyssa on 03-01-2024 Eosinophils/100 WBC (Bld) 1.3 % 0-5 [facility] Erythrocyte distribution wid th (RBC) [Ratio]Ordered By: Reji Herronrejialyssa on 03-01-2024 Erythrocyte distribution width (RBC) [Entitic vol] 56.0 fL High 35.1-43.9 [facility] Erythrocyte distribution wid th ratioOrdered By: Angelitoarline Herronrejialyssa on 03-01-2024 Erythrocyte distribution width (RBC) [Ratio] 15.8 % High 11.6-14.6 [facility] Estimated glomerular filtrat ion rate (GFR) AmericanOrdered By: Reji Reyna on 03-01-2024 Estimated GFR (MDRD) Amer 107 mL/min >60 [facility] Comment on above: GFR Calc Glomerular filtration rate ( GFR) estimationOrdered By: Reji Reyna on 03-01-2024 Estimated GFR (MDRD) Non-Af Amer 88 mL/min >60 [facility] Comment on above: Non- GFR Calc Glucose measurementOrdered B y: Reji Reyna on 03-01-2024 Glucose [Mass/Vol] 68 mg/dL Low 74-106 [facility] Hematocrit Auto (Bld) [Volum e fraction]Ordered By: Reji Ramirezalyssa on 03-01-2024 Hematocrit (Bld) [Volume fraction] 28.3 % Low 37-47 [facility] Hemoglobin measurementOrdere d By: Reji Reyna on 03-01-2024 Hemoglobin (Bld) [Mass/Vol] 8.3 g/dL Low 12.0-15.0 [facility] Immature granulocytes/100 WB C Auto (Bld)Ordered By: Angelitomerylshine Gopalrejialyssa on 03-01-2024 Immature granulocytes/100 WBC (Bld) 0.700 % 0.0-0.9 [facility] Comment on above: IG% - Immature Granu locytes (promyelocytes, myelocytes and metamyelocytes) > 1% indicates that a LEFT SHIFT is Present. Laboratory - Chemistry and C hemistry - challengeOrdered By: Jamisongarfield Herronrejialyssa on 03-01-2024 AST [Catalytic activity/Vol] 34 U/L 15-37 [facility] Lymphocytes Auto (Unsp spec) [#/Vol]Ordered By: Reji Reyna on 03-01-2024 Lymphocytes (Bld) [#/Vol] 1.02 10*3/uL 0.83-4.51 [facility] Lymphocytes/100 WBC Auto (Un sp spec)Ordered By: Reji Reyna on 03-01-2024 Lymphocytes/100 WBC (Bld) 16.9 % Low 19-41 [facility] MCV (mean corpuscular volume ) determinationOrdered By: Reji Reyna on 03-01-2024 MCV (RBC) [Entitic vol] 99.6 fL High 81-99 [facility] Mean corpuscular hemoglobin (MCH) determinationOrdered By: Efewshine Ramirezalyssa on 03-01-2024 MCH (RBC) [Entitic mass] 29.2 pg 27.0-32.0 [facility] Mean corpuscular hemoglobin concentration (MCHC) determinationOrdered By: Jamisonbe Jamese on 03-01-2024 MCHC (RBC) [Mass/Vol] 29.3 g/dL Low 32-36 [facility] Mean platelet volume determi nationOrdered By: Efmerylongbe Jamese on 03-01-2024 Platelet mean volume (Bld) [Entitic vol] 10.1 fL 6.2-12.0 [facility] Monocyte percentageOrdered B y: Efmerylongbe Jamese on 03-01-2024 Monocytes/100 WBC (Bld) 11.9 % High 0-10 [facility] Neutrophil percentageOrdered By: Efmerylongbe Jamese on 03-01-2024 Neutrophils/100 WBC (Bld) 68.5 % 47-70 [facility] Nucleated red blood cell per centageOrdered By: Jasongbe Jamese on 03-01-2024 Nucleated RBC/100 WBC (Bld) [Ratio] 0.7 % 0-5 [facility] Platelet countOrdered By: Ef arline Reyna on 03-01-2024 Platelets (Bld) [#/Vol] 217 10*3/uL 150-450 [facility] Potassium measurementOrdered By: Jamisonbe Jamese on 03-01-2024 Potassium [Moles/Vol] 4.0 mmol/L 3.5-5.1 [facility] RBC Auto (Bld) [#/Vol]Ordere d By: Efmerylongbe Jamese on 03-01-2024 RBC (Bld) [#/Vol] 2.84 10*6/uL Low 4.2-5.4 [facility] Serum anion gap measurementO rdered By: Efmerylongbe Jamese on 03-01-2024 Anion gap [Moles/Vol] 7 mmol/L 5-15 [facility] Serum globulin measurementOr dered By: Jasongbe Gopalrejie on 03-01-2024 Globulin (S) [Mass/Vol] 5.7 g/dL High 2.2-4.2 [facility] Serum or plasma alanine cheatham otransferase (ALT) measurementOrdered By: Angelitoarline Herronrejialyssa on 03-01-2024 ALT [Catalytic activity/Vol] 19 U/L 13-56 [facility] Serum or plasma albumin yonatan urement (mass/volume)Ordered By: Reji Gopalrejialyssa on 03-01-2024 Albumin [Mass/Vol] 2.2 g/dL Low 3.2-5.0 [facility] Serum or plasma alkaline shannon sphatase measurementOrdered By: Reji Gopalrejialyssa on 03-01-2024 ALP [Catalytic activity/Vol] 63 U/L 45-117 [facility] Serum or plasma calcium yonatan urement (mass/volume)Ordered By: Angelitomerylshine Gopalrejialyssa on 03-01-2024 Calcium [Mass/Vol] 8.8 mg/dL 8.5-10.1 [facility] Serum or plasma creatinine m easurement (mass/volume)Ordered By: Jasmichaelgarfield Herronrejialyssa on 03-01-2024 Creatinine [Mass/Vol] 0.67 mg/dL 0.55-1.02 [facility] Comment on above: The validity of the calculated GFR & GFRAA in patients over 70 years has not been determined. Clinical correlation is essential. Serum or plasma urea nitroge n measurement (mass/volume)Ordered By: Angelitomerylmichaelgarfield Herronrejialyssa on 03-01-2024 Urea nitrogen [Mass/Vol] 14 mg/dL 7-18 [facility] Sodium levelOrdered By: Jas shine Gopalrejialyssa on 03-01-2024 Sodium [Moles/Vol] 137 mmol/L 136-145 [facility] Total proteinOrdered By: Fredyalyssa brookegarfield Herronrejialyssa on 03-01-2024 Protein [Mass/Vol] 7.9 g/dL 6.4-8.2 [facility] White blood cell (WBC) count Ordered By: Jasshine Gopalrejialyssa on 03-01-2024 WBC (Bld) [#/Vol] 6.1 10*3/uL 4.4-11.0 [facility] CBC W Auto Differential pane l (Bld)on 02-24-2024 Basophils (Bld) [#/Vol] 0.04 10*3/uL [facility] Basophils/100 WBC (Bld) 0.4 % [facility] Differential cell count method Nom (Bld) Auto [facility] Eosinophils (Bld) [#/Vol] 0.04 10*3/uL [facility] Eosinophils/100 WBC (Bld) 0.4 % [facility] Erythrocyte distribution width (RBC) [Ratio] 15.2 % High 11.5 - 15.0 % [facility] Hematocrit (Bld) [Volume fraction] 28.3 % Low 36.0 - 46.0 % [facility] Hemoglobin (Bld) [Mass/Vol] 8.5 g/dL Low 11.5 - 15.5 g/dL [facility] Immature granulocytes (Bld) [#/Vol] 0.05 10*3/uL [facility] Immature granulocytes/100 WBC (Bld) 0.5 % [facility] Interpretation and review of laboratory results Abnormal [facility] Lymphocytes (Bld) [#/Vol] 0.92 10*3/uL Low [facility] Lymphocytes/100 WBC (Bld) 9.7 % [facility] MCH (RBC) [Entitic mass] 28.1 pg 26.0 - 34.0 pg [facility] MCHC (RBC) [Mass/Vol] 30.0 g/dL Low 30.5 - 36.0 g/dL [facility] MCV (RBC) [Entitic vol] 93.4 fL 80.0 - 100.0 fL [facility] Monocytes (Bld) [#/Vol] 1.15 10*3/uL High [facility] Monocytes/100 WBC (Bld) 12.1 % [facility] Neutrophils (Bld) [#/Vol] 7.29 10*3/uL [facility] Neutrophils/100 WBC (Bld) 76.9 % [facility] Nucleated RBC (Bld) [#/Vol] [facility] Nucleated RBC/100 WBC (Bld) [Ratio] 0.0 % /100 WBC [facility] Platelet mean volume (Bld) [Entitic vol] 9.0 fL 9.0 - 12.7 fL [facility] Platelets (Bld) [#/Vol] 243 10*3/uL [facility] RBC (Bld) [#/Vol] 3.03 10*6/uL Low 3.90 - 5.2 0 m/uL [facility] WBC (Bld) [#/Vol] 9.49 10*3/uL [facility] Comprehensive metabolic 2000 panelOrdered By: Pam Tate on 02-24-2024 Albumin [Mass/Vol] 3.0 g/dL Low 3.9 - 4.9 g/dL [facility] ALP [Catalytic activity/Vol] 69 U/L 34 - 123 U/L [facility] ALT [Catalytic activity/Vol] 13 U/L 7 - 38 U/L [facility] Anion gap [Moles/Vol] 10 mmol/L 8 - 15 mmol/L [facility] AST [Catalytic activity/Vol] 21 U/L 13 - 35 U/L [facility] Bilirubin [Mass/Vol] 0.6 mg/dL 0.2 - 1 .3 mg/dL [facility] Calcium [Mass/Vol] 8.6 mg/dL 8.5 - 10. 2 mg/dL [facility] Chloride [Moles/Vol] 101 mmol/L 98 - 10 7 mmol/L [facility] CO2 [Moles/Vol] 21 mmol/L Low 22 - 30 mmol/L [facility] Creatinine [Mass/Vol] 0.67 mg/dL 0.58 - 0.96 mg/dL [facility] GFR/1.73 sq M.predicted among non-blacks MDRD (S/P/Bld) [Vol rate/Area] 85 mL/min/{1.73_m2} - PINF [facility] Comment on above: Estimated Glomerular Filtration Rate [...] 162 mg/dL High 74 - 99 mg/dL [facility] Comment on above: The [place] Diab[employer] [place] Association (ADA) provides guidance for [...] Medical Care in Diabetes 2016, [place] [employer] Association. Diabetes Care. 2016.39(Suppl 1). Interpretation and review of laboratory results Abnormal [facility] Potassium [Moles/Vol] 4.4 mmol/L 3.7 - 5.1 mmol/L [facility] Protein [Mass/Vol] 8.0 g/dL 6.3 - 8.0 g/dL [facility] Sodium [Moles/Vol] 132 mmol/L Low 136 - 144 mmol/L [facility] Urea nitrogen [Mass/Vol] 16 mg/dL 7 - 21 mg/dL [facility] ESR Westergren method (Bld) [Velocity]on 02-24-2024 ESR (Bld) [Velocity] 123 mm/h High [facility] Interpretation and review of laboratory results Abnormal [facility] CBC W Auto Differential pane l (Bld)on 11-25-2023 Basophils (Bld) [#/Vol] 0.03 10*3/uL [facility] Basophils/100 WBC (Bld) 0.6 % [facility] Differential cell count method Nom (Bld) Auto [facility] Eosinophils (Bld) [#/Vol] [facility] Eosinophils/100 WBC (Bld) 0.4 % [facility] Erythrocyte distribution width (RBC) [Ratio] 15.0 % 11.5 - 15.0 % [facility] Hematocrit (Bld) [Volume fraction] 29.7 % Low 36.0 - 46.0 % [facility] Hemoglobin (Bld) [Mass/Vol] 9.8 g/dL Low 11.5 - 15.5 g/dL [facility] Immature granulocytes (Bld) [#/Vol] [facility] Immature granulocytes/100 WBC (Bld) 0.4 % [facility] Interpretation and review of laboratory results Abnormal [facility] Lymphocytes (Bld) [#/Vol] 0.54 10*3/uL Low [facility] Lymphocytes/100 WBC (Bld) 10.4 % [facility] MCH (RBC) [Entitic mass] 33.0 pg 26.0 - 34.0 pg [facility] MCHC (RBC) [Mass/Vol] 33.0 g/dL 30.5 - 36.0 g/dL [facility] MCV (RBC) [Entitic vol] 100.0 fL 80.0 - 100.0 fL [facility] Monocytes (Bld) [#/Vol] 0.46 10*3/uL NINF [facility] Monocytes/100 WBC (Bld) 8.8 % [facility] Neutrophils (Bld) [#/Vol] 4.13 10*3/uL [facility] Neutrophils/100 WBC (Bld) 79.4 % [facility] Nucleated RBC (Bld) [#/Vol] NINF [facility] Nucleated RBC/100 WBC (Bld) [Ratio] 0.0 % /100 WBC [facility] Platelet mean volume (Bld) [Entitic vol] 8.9 fL Low 9.0 - 12.7 fL [facility] Platelets (Bld) [#/Vol] 146 10*3/uL Low [facility] RBC (Bld) [#/Vol] 2.97 10*6/uL Low 3.90 - 5.2 0 m/uL [facility] WBC (Bld) [#/Vol] 5.20 10*3/uL [facility] Comprehensive metabolic 2000 panelOrdered By: Pam Tate on 11-25-2023 Albumin [Mass/Vol] 3.5 g/dL Low 3.9 - 4.9 g/dL [facility] ALP [Catalytic activity/Vol] 80 U/L 34 - 123 U/L [facility] ALT [Catalytic activity/Vol] 22 U/L 7 - 38 U/L [facility] Anion gap [Moles/Vol] 13 mmol/L 8 - 15 mmol/L [facility] AST [Catalytic activity/Vol] 31 U/L 13 - 35 U/L [facility] Bilirubin [Mass/Vol] 0.6 mg/dL 0.2 - 1 .3 mg/dL [facility] Calcium [Mass/Vol] 9.3 mg/dL 8.5 - 10. 2 mg/dL [facility] Chloride [Moles/Vol] 105 mmol/L 98 - 10 7 mmol/L [facility] CO2 [Moles/Vol] 21 mmol/L Low 22 - 30 mmol/L [facility] Creatinine [Mass/Vol] 0.63 mg/dL 0.58 - 0.96 mg/dL [facility] GFR/1.73 sq M.predicted among non-blacks MDRD (S/P/Bld) [Vol rate/Area] 86 mL/min/{1.73_m2} - PINF [facility] Comment on above: Estimated Glomerular Filtration Rate [...] 148 mg/dL High 74 - 99 mg/dL [facility] Comment on above: The [place] Diab[employer] [place] Association (ADA) provides guidance for [...] Medical Care in Diabetes 2016, [place] [employer] Association. Diabetes Care. 2016.39(Suppl 1). Interpretation and review of laboratory results Abnormal [facility] Potassium [Moles/Vol] 4.0 mmol/L 3.7 - 5.1 mmol/L [facility] Protein [Mass/Vol] 8.0 g/dL 6.3 - 8.0 g/dL [facility] Sodium [Moles/Vol] 139 mmol/L 136 - 144 mmol/L [facility] Urea nitrogen [Mass/Vol] 15 mg/dL 7 - 21 mg/dL [facility] ESR Westergren method (Bld) [Velocity]on 11-25-2023 ESR (Bld) [Velocity] 129 mm/h High [facility] Interpretation and review of laboratory results Abnormal [facility] CBC W Auto Differential pane l (Bld)on 08-19-2023 Basophils (Bld) [#/Vol] 0.05 10*3/uL [facility] Basophils/100 WBC (Bld) 0.6 % [facility] Differential cell count method Nom (Bld) Auto [facility] Eosinophils (Bld) [#/Vol] 0.07 10*3/uL [facility] Eosinophils/100 WBC (Bld) 0.8 % [facility] Erythrocyte distribution width (RBC) [Ratio] 14.6 % 11.5 - 15.0 % [facility] Hematocrit (Bld) [Volume fraction] 34.7 % Low 36.0 - 46.0 % [facility] Hemoglobin (Bld) [Mass/Vol] 11.6 g/dL 11.5 - 15.5 g/dL [facility] Immature granulocytes (Bld) [#/Vol] 0.03 10*3/uL [facility] Immature granulocytes/100 WBC (Bld) 0.4 % [facility] Interpretation and review of laboratory results Abnormal [facility] Lymphocytes (Bld) [#/Vol] 0.67 10*3/uL Low [facility] Lymphocytes/100 WBC (Bld) 8.1 % [facility] MCH (RBC) [Entitic mass] 33.1 pg 26.0 - 34.0 pg [facility] MCHC (RBC) [Mass/Vol] 33.4 g/dL 30.5 - 36.0 g/dL [facility] MCV (RBC) [Entitic vol] 99.1 fL 80.0 - 100.0 fL [facility] Monocytes (Bld) [#/Vol] 1.02 10*3/uL High [facility] Monocytes/100 WBC (Bld) 12.3 % [facility] Neutrophils (Bld) [#/Vol] 6.42 10*3/uL [facility] Neutrophils/100 WBC (Bld) 77.8 % [facility] Nucleated RBC (Bld) [#/Vol] [facility] Nucleated RBC/100 WBC (Bld) [Ratio] 0.0 % /100 WBC [facility] Platelet mean volume (Bld) [Entitic vol] 8.7 fL Low 9.0 - 12.7 fL [facility] Platelets (Bld) [#/Vol] 169 10*3/uL [facility] RBC (Bld) [#/Vol] 3.50 10*6/uL Low 3.90 - 5.2 0 m/uL [facility] WBC (Bld) [#/Vol] 8.26 10*3/uL [facility] FERRITINon 08-19-2023 Ferritin [Mass/Vol] 147.0 ng/mL 14.7 - 205.1 ng/mL [facility] Ferritin [Mass/Vol]on 2023 Interpretation and review of laboratory results Normal [facility] Iron and Iron binding capaci ty panelon 08-19-2023 Interpretation and review of laboratory results Normal [facility] Iron [Mass/Vol] 87 ug/dL 41 - 186 ug/dL [facility] Iron binding capacity [Mass/Vol] 271 ug/dL 232 - 386 ug/dL [facility] Iron/TIBC [Molar ratio] 32.1 % 15.0 - 57.0 % [facility] C-REACTIVE PROTEINon 024 CRP [Mass/Vol] <0.9 mg/dL [facility] CBC W Auto Differential pane l (Bld)on 07-04-2023 Basophils (Bld) [#/Vol] <0.11 k/uL [facility] Basophils/100 WBC (Bld) 0.2 % [facility] Differential cell count method Nom (Bld) Auto [facility] Eosinophils (Bld) [#/Vol] 0.03 10*3/uL <0.46 k/uL [facility] Eosinophils/100 WBC (Bld) 0.3 % [facility] Erythrocyte distribution width (RBC) [Ratio] 14.8 % 11.5 - 15.0 % [facility] Hematocrit (Bld) [Volume fraction] 39.4 % 36.0 - 46.0 % [facility] Hemoglobin (Bld) [Mass/Vol] 13.2 g/dL 11.5 - 15.5 g/dL [facility] Immature granulocytes (Bld) [#/Vol] 0.06 10*3/uL <0.10 k/uL [facility] Immature granulocytes/100 WBC (Bld) 0.6 % [facility] Lymphocytes (Bld) [#/Vol] 0.84 10*3/uL Low 1.00 - 4.00 k/uL [facility] Lymphocytes/100 WBC (Bld) 8.1 % [facility] MCH (RBC) [Entitic mass] 33.0 pg 26.0 - 34.0 pg [facility] MCHC (RBC) [Mass/Vol] 33.5 g/dL 30.5 - 36.0 g/dL [facility] MCV (RBC) [Entitic vol] 98.5 fL 80.0 - 100.0 fL [facility] Monocytes (Bld) [#/Vol] 1.41 10*3/uL High <0.87 k/uL [facility] Monocytes/100 WBC (Bld) 13.6 % [facility] Neutrophils (Bld) [#/Vol] 8.02 10*3/uL High 1.45 - 7.50 k/uL [facility] Neutrophils/100 WBC (Bld) 77.2 % [facility] Nucleated RBC (Bld) [#/Vol] <0.01 k/uL [facility] Nucleated RBC/100 WBC (Bld) [Ratio] 0.0 /100 WBC [facility] Platelet mean volume (Bld) [Entitic vol] 9.4 fL 9.0 - 12.7 fL [facility] Platelets (Bld) [#/Vol] 151 10*3/uL 150 - 400 k/uL [facility] RBC (Bld) [#/Vol] 4.00 10*6/uL 3.90 - 5.2 0 m/uL [facility] WBC (Bld) [#/Vol] 10.38 10*3/uL 3.70 - 11.00 k/uL [facility] Comprehensive metabolic 2000 panelon 07-04-2023 Albumin [Mass/Vol] 3.5 g/dL Low 3.9 - 4.9 g/dL [facility] ALP [Catalytic activity/Vol] 80 U/L 34 - 123 U/L [facility] ALT [Catalytic activity/Vol] 51 U/L High 7 - 38 U/L [facility] Anion gap [Moles/Vol] 9 mmol/L 9 - 18 mmol/L [facility] AST [Catalytic activity/Vol] 43 U/L High 13 - 35 U/L [facility] Bilirubin [Mass/Vol] 0.8 mg/dL 0.2 - 1 .3 mg/dL [facility] Calcium [Mass/Vol] 9.7 mg/dL 8.5 - 10. 2 mg/dL [facility] Chloride [Moles/Vol] 105 mmol/L 97 - 10 5 mmol/L [facility] CO2 [Moles/Vol] 24 mmol/L 22 - 30 mmol/L [facility] Creatinine [Mass/Vol] 0.73 mg/dL 0.58 - 0.96 mg/dL [facility] Estimated Glomerular Filtration Rate 80 mL/min/1.73m >=60 mL/min/1.73 m [facility] Glucose [Mass/Vol] 85 mg/dL 74 - 99 mg/dL [facility] Potassium [Moles/Vol] 4.5 mmol/L 3.7 - 5.1 mmol/L [facility] Protein [Mass/Vol] 7.4 g/dL 6.3 - 8.0 g/dL [facility] Sodium [Moles/Vol] 138 mmol/L 136 - 144 mmol/L [facility] Urea nitrogen [Mass/Vol] 19 mg/dL 7 - 21 mg/dL [facility] ESR Westergren method (Bld) [Velocity]on 07-04-2023 ESR (Bld) [Velocity] 49 mm/h High 0 - 20 mm/hr [facility] RHEUMATOID FACTORon 07-04-19 24 Rheumatoid factor Qn 439 [IU]/mL High <16 IU/mL [facility] Absolute lymphocyte countOrd ered By: Reji Reyna on 06-30-2023 Lymphocytes Auto (Unsp spec) [#/Vol] 1.25 10*3/uL 0.83-4.51 [facility] Automated lymphocyte count a s percentage of total leukocytesOrdered By: Reji Reyna on 06-30-2023 Lymphocytes/100 WBC Auto (Unsp spec) 21.3 % 19-41 [facility] Basophil percentageOrdered B y: Reji Reyna on 06-30-2023 Basophils/100 WBC (Bld) 0.7 % 0-1 [facility] Bilirubin [Mass/Vol] 0.80 mg/dL 0.20-1.[address] [facility] Comment on above: For patients on eltr ombopag therapy, use of Dimension [place] TBIL is not recommended. Chloride [Moles/Vol] 110 mmol/L 98-[address] [facility] Eosinophils/100 WBC (Bld) 1.5 % 0-5 [facility] Glucose [Mass/Vol] 74 mg/dL 74-106 [facility] Hemoglobin (Bld) [Mass/Vol] 11.0 g/dL 12.0-15.0 [facility] Monocytes/100 WBC (Bld) 11.9 % 0-10 [facility] Neutrophils (Bld) [#/Vol] 3.8 10*3/uL 2.0-7.7 [facility] Neutrophils/100 WBC (Bld) 64.1 % 47-70 [facility] Potassium [Moles/Vol] 4.0 mmol/L 3.5-5.1 [facility] Protein [Mass/Vol] 6.4 g/dL 6.4-8.2 [facility] Sodium [Moles/Vol] 142 mmol/L 136-145 [facility] WBC (Bld) [#/Vol] 5.9 10*3/uL 4.4-11.0 [facility] Determination of erythrocyte mean corpuscular volume (MCV)Ordered By: Reji Reyna on 06-30-2023 MCV (RBC) [Entitic vol] 102.1 fL 81-99 [facility] Erythrocyte distribution wid th ratioOrdered By: [facility] Gopalalyssa on 06-30-2023 Erythrocyte distribution width (RBC) [Ratio] 15.0 % 11.6-14.6 [facility] Erythrocyte distribution wid th standard deviationOrdered By: [facility] Gopalalyssa on 06-30-2023 Erythrocyte distribution width (RBC) [Entitic vol] 55.3 fL 35.1-43.9 [facility] Hematocrit Auto (Bld) [Volum e fraction]Ordered By: [facility]ar[facility] Reyna on 06-30-2023 Hematocrit (Bld) [Volume fraction] 34.2 % 37-47 [facility] Immature granulocytes/100 WB C Auto (Bld)Ordered By: [facility] Reyna on 06-30-2023 Immature granulocytes/100 WBC (Bld) 0.500 % 0.0-0.9 [facility] Comment on above: IG% - Immature Granu locytes (promyelocytes, myelocytes and metamyelocytes) > 1% indicates that a LEFT SHIFT is Present. Laboratory - Chemistry and C hemistry - challengeOrdered By: Reji Reyna on 06-30-2023 Albumin/Globulin [Mass ratio] 0.6 {ratio} 0.9-2.4 [facility] ALP [Catalytic activity/Vol] 59 U/L 45-117 [facility] ALT [Catalytic activity/Vol] 31 U/L 13-56 [facility] CO2 [Moles/Vol] 27.0 mmol/L 21.0-32.0 [facility] Globulin (S) [Mass/Vol] 4.0 g/dL 2.2-4.2 [facility] Urea nitrogen/Creatinine [Mass ratio] 23.6 mg/mg 10-20 [facility] Laboratory - Hematology and Cell countsOrdered By: Reji Reyna on 06-30-2023 MCH (RBC) [Entitic mass] 32.8 pg 27.0-32.0 [facility] MCHC (RBC) [Mass/Vol] 32.2 g/dL 32-36 [facility] Nucleated RBC/100 WBC (Bld) [Ratio] 0 % 0-5 [facility] Platelet mean volume (Bld) [Entitic vol] 9.7 fL 6.2-12.0 [facility] Platelets (Bld) [#/Vol] 131 10*3/uL 150-450 [facility] No Panel InformationOrdered By: Reji Reyna on 06-30-2023 Estimated GFR (MDRD) Amer 123 mL/min >60 [facility] Comment on above: GFR Calc Estimated GFR (MDRD) Non-Af Amer 102 mL/min >60 [facility] Comment on above: Non- GFR Calc RBC Auto (Bld) [#/Vol]Ordere d By: Reji Reyna on 06-30-2023 RBC (Bld) [#/Vol] 3.35 10*6/uL 4.2-5.4 [facility] Serum or plasma calcium yonatan urement (mass/volume)Ordered By: Reji Reyna on 06-30-2023 Calcium [Mass/Vol] 8.5 mg/dL 8.5-10.1 [facility] Serum or plasma creatinine m easurement (mass/volume)Ordered By: Jasmichaelgarfield Reyna on 06-30-2023 Creatinine [Mass/Vol] 0.59 mg/dL 0.55-1.02 [facility] Comment on above: The validity of the calculated GFR & GFRAA in patients over 70 years has not been determined. Clinical correlation is essential. Serum or plasma urea nitroge n measurement (mass/volume)Ordered By: Reji Reyna on 06-30-2023 Urea nitrogen [Mass/Vol] 14 mg/dL 7-18 [facility] Thin prep Papanicolaou smear with manual screeningOrdered By: arline Reyna on 06-30-2023 Thin prep Papanicolaou smear with manual screening 2.4 g/dL 3.2-5.0 [facility] Thin prep Papanicolaou smear with manual screening 27 U/L 15-37 [facility] Thin prep Papanicolaou smear with manual screening 5 5-15 [facility] Absolute lymphocyte countOrd ered By: Reji Reyna on 06-02-2023 Lymphocytes Auto (Unsp spec) [#/Vol] 1.12 10*3/uL 0.83-4.51 [facility] Automated lymphocyte count a s percentage of total leukocytesOrdered By: Reji Reyna on 06-02-2023 Lymphocytes/100 WBC Auto (Unsp spec) 18.1 % 19-41 [facility] Basophil percentageOrdered B y: Reji Reyna on 06-02-2023 Basophils/100 WBC (Bld) 0.5 % 0-1 [facility] Bilirubin [Mass/Vol] 0.60 mg/dL 0.20-1.[address] [facility] Comment on above: For patients on eltr ombopag therapy, use of Dimension [place] TBIL is not recommended. Chloride [Moles/Vol] 110 mmol/L 98-[address] [facility] Eosinophils/100 WBC (Bld) 1.5 % 0-5 [facility] Glucose [Mass/Vol] 76 mg/dL 74-106 [facility] Hemoglobin (Bld) [Mass/Vol] 11.3 g/dL 12.0-15.0 [facility] Monocytes/100 WBC (Bld) 9.5 % 0-10 [facility] Neutrophils (Bld) [#/Vol] 4.3 10*3/uL 2.0-7.7 [facility] Neutrophils/100 WBC (Bld) 69.9 % 47-70 [facility] Potassium [Moles/Vol] 4.1 mmol/L 3.5-5.1 [facility] Protein [Mass/Vol] 6.8 g/dL 6.4-8.2 [facility] Sodium [Moles/Vol] 140 mmol/L 136-145 [facility] WBC (Bld) [#/Vol] 6.2 10*3/uL 4.4-11.0 [facility] Determination of erythrocyte mean corpuscular volume (MCV)Ordered By: Reji Reyna on 06-02-2023 MCV (RBC) [Entitic vol] 101.2 fL 81-99 [facility] Erythrocyte distribution wid th ratioOrdered By: meryleast branchgarfield Reyna on 06-02-2023 Erythrocyte distribution width (RBC) [Ratio] 14.1 % 11.6-14.6 [facility] Erythrocyte distribution wid th standard deviationOrdered By: [facility] Herronalyssa on 06-02-2023 Erythrocyte distribution width (RBC) [Entitic vol] 52.1 fL 35.1-43.9 [facility] Hematocrit Auto (Bld) [Volum e fraction]Ordered By: Reji Reyna on 06-02-2023 Hematocrit (Bld) [Volume fraction] 34.1 % 37-47 [facility] Immature granulocytes/100 WB C Auto (Bld)Ordered By: Reji Reyna on 06-02-2023 Immature granulocytes/100 WBC (Bld) 0.500 % 0.0-0.9 [facility] Comment on above: IG% - Immature Granu locytes (promyelocytes, myelocytes and metamyelocytes) > 1% indicates that a LEFT SHIFT is Present. Laboratory - Chemistry and C hemistry - challengeOrdered By: Reji Reyna on 06-02-2023 Albumin/Globulin [Mass ratio] 0.5 {ratio} 0.9-2.4 [facility] ALP [Catalytic activity/Vol] 67 U/L 45-117 [facility] ALT [Catalytic activity/Vol] 25 U/L 13-56 [facility] CO2 [Moles/Vol] 26.0 mmol/L 21.0-32.0 [facility] Globulin (S) [Mass/Vol] 4.4 g/dL 2.2-4.2 [facility] Urea nitrogen/Creatinine [Mass ratio] 21.1 mg/mg 10-20 [facility] Laboratory - Hematology and Cell countsOrdered By: Reji Reyna on 06-02-2023 MCH (RBC) [Entitic mass] 33.5 pg 27.0-32.0 [facility] MCHC (RBC) [Mass/Vol] 33.1 g/dL 32-36 [facility] Nucleated RBC/100 WBC (Bld) [Ratio] 0 % 0-5 [facility] Platelet mean volume (Bld) [Entitic vol] 9.4 fL 6.2-12.0 [facility] Platelets (Bld) [#/Vol] 144 10*3/uL 150-450 [facility] No Panel InformationOrdered By: Reji Reyna on 06-02-2023 Estimated GFR (MDRD) Amer 118 mL/min >60 [facility] Comment on above: GFR Calc Estimated GFR (MDRD) Non-Af Amer 97 mL/min >60 [facility] Comment on above: Non- GFR Calc RBC Auto (Bld) [#/Vol]Ordere d By: Reji Reyna on 06-02-2023 RBC (Bld) [#/Vol] 3.37 10*6/uL 4.2-5.4 [facility] Serum or plasma calcium yonatan urement (mass/volume)Ordered By: Reji Reyna on 06-02-2023 Calcium [Mass/Vol] 9.1 mg/dL 8.5-10.1 [facility] Serum or plasma creatinine m easurement (mass/volume)Ordered By: Reji Reyna on 06-02-2023 Creatinine [Mass/Vol] 0.62 mg/dL 0.55-1.02 [facility] Comment on above: The validity of the calculated GFR & GFRAA in patients over 70 years has not been determined. Clinical correlation is essential. Serum or plasma urea nitroge n measurement (mass/volume)Ordered By: Jamisongarfield Reyna on 06-02-2023 Urea nitrogen [Mass/Vol] 13 mg/dL 7-18 [facility] Thin prep Papanicolaou smear with manual screeningOrdered By: Angelitomerylshine Gopalrejialyssa on 06-02-2023 Thin prep Papanicolaou smear with manual screening 2.4 g/dL 3.2-5.0 [facility] Thin prep Papanicolaou smear with manual screening 26 U/L 15-37 [facility] Thin prep Papanicolaou smear with manual screening 4 5-15 [facility] Absolute lymphocyte countOrd ered By: Jamisongarfield Herronrejialyssa on 05-05-2023 Lymphocytes Auto (Unsp spec) [#/Vol] 1.25 10*3/uL 0.83-4.51 [facility] Automated lymphocyte count a s percentage of total leukocytesOrdered By: Reji Reyna on 05-05-2023 Lymphocytes/100 WBC Auto (Unsp spec) 17.8 % 19-41 [facility] Basophil percentageOrdered B y: Reji Gopalosvaldo on 05-05-2023 Basophils/100 WBC (Bld) 0.6 % 0-1 [facility] Bilirubin [Mass/Vol] 0.80 mg/dL 0.20-1.[address] [facility] Comment on above: For patients on eltr ombopag therapy, use of Dimension [place] TBIL is not recommended. Chloride [Moles/Vol] 112 mmol/L 98-[address] [facility] Eosinophils/100 WBC (Bld) 1.6 % 0-5 [facility] Glucose [Mass/Vol] 76 mg/dL 74-106 [facility] Hemoglobin (Bld) [Mass/Vol] 11.6 g/dL 12.0-15.0 [facility] Monocytes/100 WBC (Bld) 11.1 % 0-10 [facility] Neutrophils (Bld) [#/Vol] 4.8 10*3/uL 2.0-7.7 [facility] Neutrophils/100 WBC (Bld) 68.5 % 47-70 [facility] Potassium [Moles/Vol] 4.0 mmol/L 3.5-5.1 [facility] Protein [Mass/Vol] 6.7 g/dL 6.4-8.2 [facility] Sodium [Moles/Vol] 142 mmol/L 136-145 [facility] WBC (Bld) [#/Vol] 7.0 10*3/uL 4.4-11.0 [facility] Determination of erythrocyte mean corpuscular volume (MCV)Ordered By: Reji Reyna on 05-05-2023 MCV (RBC) [Entitic vol] 102.3 fL 81-99 [facility] Erythrocyte distribution wid th ratioOrdered By: [facility] Gopalalyssa on 05-05-2023 Erythrocyte distribution width (RBC) [Ratio] 14.0 % 11.6-14.6 [facility] Erythrocyte distribution wid th standard deviationOrdered By: [facility] Gopalalyssa on 05-05-2023 Erythrocyte distribution width (RBC) [Entitic vol] 51.9 fL 35.1-43.9 [facility] Hematocrit Auto (Bld) [Volum e fraction]Ordered By: [facility] Gopalalyssa on 05-05-2023 Hematocrit (Bld) [Volume fraction] 35.7 % 37-47 [facility] Immature granulocytes/100 WB C Auto (Bld)Ordered By: [facility] Gopalalyssa on 05-05-2023 Immature granulocytes/100 WBC (Bld) 0.400 % 0.0-0.9 [facility] Comment on above: IG% - Immature Granu locytes (promyelocytes, myelocytes and metamyelocytes) > 1% indicates that a LEFT SHIFT is Present. Laboratory - Chemistry and C hemistry - challengeOrdered By: meryleast branchgarfield Reyna on 05-05-2023 Albumin/Globulin [Mass ratio] 0.6 {ratio} 0.9-2.4 [facility] ALP [Catalytic activity/Vol] 56 U/L 45-117 [facility] ALT [Catalytic activity/Vol] 24 U/L 13-56 [facility] CO2 [Moles/Vol] 26.0 mmol/L 21.0-32.0 [facility] Globulin (S) [Mass/Vol] 4.3 g/dL 2.2-4.2 [facility] Urea nitrogen/Creatinine [Mass ratio] 16.0 mg/mg 10-20 [facility] Laboratory - Hematology and Cell countsOrdered By: Reji Reyna on 05-05-2023 MCH (RBC) [Entitic mass] 33.2 pg 27.0-32.0 [facility] MCHC (RBC) [Mass/Vol] 32.5 g/dL 32-36 [facility] Nucleated RBC/100 WBC (Bld) [Ratio] 0 % 0-5 [facility] Platelet mean volume (Bld) [Entitic vol] 9.4 fL 6.2-12.0 [facility] Platelets (Bld) [#/Vol] 144 10*3/uL 150-450 [facility] No Panel InformationOrdered By: Reji Reyna on 05-05-2023 Estimated GFR (MDRD) Amer 104 mL/min >60 [facility] Comment on above: GFR Calc Estimated GFR (MDRD) Non-Af Amer 86 mL/min >60 [facility] Comment on above: Non- GFR Calc RBC Auto (Bld) [#/Vol]Ordere d By: Reji Reyna on 05-05-2023 RBC (Bld) [#/Vol] 3.49 10*6/uL 4.2-5.4 [facility] Serum or plasma calcium yonatan urement (mass/volume)Ordered By: Reji Reyna on 05-05-2023 Calcium [Mass/Vol] 9.0 mg/dL 8.5-10.1 [facility] Serum or plasma creatinine m easurement (mass/volume)Ordered By: Reji Reyna on 05-05-2023 Creatinine [Mass/Vol] 0.69 mg/dL 0.55-1.02 [facility] Comment on above: The validity of the calculated GFR & GFRAA in patients over 70 years has not been determined. Clinical correlation is essential. Serum or plasma thyroid stim ulating hormone (TSH) measurement (units/volume)Ordered By: Reji Reyna on 05-05-2023 TSH Qn 1.84 uIU/mL 0.358-3.74 [facility] Serum or plasma urea nitroge n measurement (mass/volume)Ordered By: Reji Reyna on 05-05-2023 Urea nitrogen [Mass/Vol] 11 mg/dL 7-18 [facility] Thin prep Papanicolaou smear with manual screeningOrdered By: Angelitomerylshine Gopalosvaldo on 05-05-2023 Thin prep Papanicolaou smear with manual screening 2.4 g/dL 3.2-5.0 [facility] Thin prep Papanicolaou smear with manual screening 16 U/L 15-37 [facility] Thin prep Papanicolaou smear with manual screening 4 5-15 [facility] Absolute lymphocyte countOrd ered By: Reji Reyna on 03-31-2023 Lymphocytes Auto (Unsp spec) [#/Vol] 1.66 10*3/uL 0.83-4.51 [facility] Basophil percentageOrdered B y: Reji Gopalosvaldo on 03-31-2023 Basophils/100 WBC (Bld) 0.7 % 0-1 [facility] Bilirubin [Mass/Vol] 0.60 mg/dL 0.20-1.[address] [facility] Comment on above: For patients on eltr ombopag therapy, use of Dimension [place] TBIL is not recommended. Chloride [Moles/Vol] 109 mmol/L 98-[address] [facility] Eosinophils/100 WBC (Bld) 1.1 % 0-5 [facility] Glucose [Mass/Vol] 69 mg/dL 74-106 [facility] Neutrophils (Bld) [#/Vol] 4.8 10*3/uL 2.0-7.7 [facility] Neutrophils/100 WBC (Bld) 65.4 % 47-70 [facility] Potassium [Moles/Vol] 4.1 mmol/L 3.5-5.1 [facility] Protein [Mass/Vol] 7.0 g/dL 6.4-8.2 [facility] Sodium [Moles/Vol] 142 mmol/L 136-145 [facility] WBC (Bld) [#/Vol] 7.4 10*3/uL 4.4-11.0 [facility] Blood erythrocytes count (nu mber/volume)Ordered By: Reji Reyna on 03-31-2023 RBC (Bld) [#/Vol] 3.54 10*6/uL 4.2-5.4 [facility] Blood hemoglobin measurement (mass/volume)Ordered By: Reji Reyna on 03-31-2023 Hemoglobin (Bld) [Mass/Vol] 12.3 g/dL 12.0-15.0 [facility] Blood lymphocytes/100 leukoc ytesOrdered By: Reji Reyna on 03-31-2023 Lymphocytes/100 WBC (Bld) 22.5 % 19-41 [facility] Blood monocytes/100 leukocyt esOrdered By: arline Reyna on 03-31-2023 Monocytes/100 WBC (Bld) 9.8 % 0-10 [facility] Blood platelet mean volumeOr dered By: Reji Reyna on 03-31-2023 Platelet mean volume (Bld) [Entitic vol] 9.9 fL 6.2-12.0 [facility] Determination of erythrocyte mean corpuscular volume (MCV)Ordered By: Reji Reyna on 03-31-2023 MCV (RBC) [Entitic vol] 103.7 fL 81-99 [facility] Hematocrit Auto (Bld) [Volum e fraction]Ordered By: Reji Reyna on 03-31-2023 Hematocrit (Bld) [Volume fraction] 36.7 % 37-47 [facility] Laboratory - Chemistry and C hemistry - challengeOrdered By: Reji Reyna on 03-31-2023 ALP [Catalytic activity/Vol] 60 U/L 45-117 [facility] ALT [Catalytic activity/Vol] 26 U/L 13-56 [facility] CO2 [Moles/Vol] 27.0 mmol/L 21.0-32.0 [facility] Globulin (S) [Mass/Vol] 4.2 g/dL 2.2-4.2 [facility] Urea nitrogen/Creatinine [Mass ratio] 19.8 mg/mg 10-20 [facility] Laboratory - Hematology and Cell countsOrdered By: Reji Reyna on 03-31-2023 Erythrocyte distribution width (RBC) [Entitic vol] 51.9 fL 35.1-43.9 [facility] Erythrocyte distribution width (RBC) [Ratio] 13.6 % 11.6-14.6 [facility] Immature granulocytes/100 WBC (Bld) 0.500 % 0.0-0.9 [facility] Comment on above: IG% - Immature Granu locytes (promyelocytes, myelocytes and metamyelocytes) > 1% indicates that a LEFT SHIFT is Present. MCH (RBC) [Entitic mass] 34.7 pg 27.0-32.0 [facility] Nucleated RBC/100 WBC (Bld) [Ratio] 0 % 0-5 [facility] MCHC Auto (RBC) [Mass/Vol]Or dered By: Reji Reyna on 03-31-2023 MCHC (RBC) [Mass/Vol] 33.5 g/dL 32-36 [facility] No Panel InformationOrdered By: Reji Reyna on 03-31-2023 Estimated GFR (MDRD) Amer 120 mL/min >60 [facility] Comment on above: GFR Calc Estimated GFR (MDRD) Non-Af Amer 99 mL/min >60 [facility] Comment on above: Non- GFR Calc Platelets bldOrdered By: Fredy Reyna on 03-31-2023 Platelets (Bld) [#/Vol] 139 10*3/uL 150-450 [facility] Serum or plasma albumin yonatan urement (mass/volume)Ordered By: Reji Reyna on 03-31-2023 Albumin [Mass/Vol] 2.8 g/dL 3.2-5.0 [facility] Serum or plasma albumin/glob ulin mass ratioOrdered By: Reji Reyna on 03-31-2023 Albumin/Globulin [Mass ratio] 0.7 {ratio} 0.9-2.4 [facility] Serum or plasma calcium yonatan urement (mass/volume)Ordered By: Reji Reyna on 03-31-2023 Calcium [Mass/Vol] 9.1 mg/dL 8.5-10.1 [facility] Serum or plasma creatinine m easurement (mass/volume)Ordered By: Reji Reyna on 03-31-2023 Creatinine [Mass/Vol] 0.61 mg/dL 0.55-1.02 [facility] Comment on above: The validity of the calculated GFR & GFRAA in patients over 70 years has not been determined. Clinical correlation is essential. Serum or plasma urea nitroge n measurement (mass/volume)Ordered By: Reji Reyna on 03-31-2023 Urea nitrogen [Mass/Vol] 12 mg/dL 10-01 [facility] Thin prep Papanicolaou smear with manual screeningOrdered By: meryleast branchgarfield Reyna on 03-31-2023 Thin prep Papanicolaou smear with manual screening 22 U/L [facility] Thin prep Papanicolaou smear with manual screening 6 07-29 [facility] Absolute lymphocyte countOrd ered By: Reji Reyna on 03-03-2023 Lymphocytes Auto (Unsp spec) [#/Vol] 1.95 10*3/uL 0.83-4.51 [facility] Basophil percentageOrdered B y: Angelitoarline Reyna on 03-03-2023 Basophils/100 WBC (Bld) 0.5 % 0-1 [facility] Bilirubin [Mass/Vol] 0.80 mg/dL 0.20-1.[address] [facility] Comment on above: For patients on eltr ombopag therapy, use of Dimension [place] TBIL is not recommended. Chloride [Moles/Vol] 109 mmol/L 98-[address] [facility] Eosinophils/100 WBC (Bld) 1.6 % 0-5 [facility] Glucose [Mass/Vol] 67 mg/dL 74-106 [facility] Neutrophils (Bld) [#/Vol] 4.4 10*3/uL 2.0-7.7 [facility] Neutrophils/100 WBC (Bld) 60.1 % 47-70 [facility] Potassium [Moles/Vol] 4.2 mmol/L 3.5-5.1 [facility] Protein [Mass/Vol] 7.3 g/dL 6.4-8.2 [facility] Sodium [Moles/Vol] 142 mmol/L 136-145 [facility] WBC (Bld) [#/Vol] 7.4 10*3/uL 4.4-11.0 [facility] Blood erythrocytes count (nu mber/volume)Ordered By: Reji Reyna on 03-03-2023 RBC (Bld) [#/Vol] 3.61 10*6/uL 4.2-5.4 [facility] Blood hemoglobin measurement (mass/volume)Ordered By: Reji Reyna on 03-03-2023 Hemoglobin (Bld) [Mass/Vol] 12.6 g/dL 12.0-15.0 [facility] Blood lymphocytes/100 leukoc ytesOrdered By: Reji Reyna on 03-03-2023 Lymphocytes/100 WBC (Bld) 26.4 % 19-41 [facility] Blood monocytes/100 leukocyt esOrdered By: arline Reyna on 03-03-2023 Monocytes/100 WBC (Bld) 10.7 % 0-10 [facility] Blood platelet mean volumeOr dered By: arline Reyna on 03-03-2023 Platelet mean volume (Bld) [Entitic vol] 9.8 fL 6.2-12.0 [facility] Determination of erythrocyte mean corpuscular volume (MCV)Ordered By: Reji Reyna on 03-03-2023 MCV (RBC) [Entitic vol] 104.7 fL 81-99 [facility] Hematocrit Auto (Bld) [Volum e fraction]Ordered By: Reji Reyna on 03-03-2023 Hematocrit (Bld) [Volume fraction] 37.8 % 37-47 [facility] Laboratory - Chemistry and C hemistry - challengeOrdered By: Reji Reyna on 03-03-2023 ALP [Catalytic activity/Vol] 71 U/L 45-117 [facility] ALT [Catalytic activity/Vol] 38 U/L 13-56 [facility] CO2 [Moles/Vol] 28.0 mmol/L 21.0-32.0 [facility] Globulin (S) [Mass/Vol] 4.3 g/dL 2.2-4.2 [facility] Urea nitrogen/Creatinine [Mass ratio] 20.3 mg/mg 10-20 [facility] Laboratory - Hematology and Cell countsOrdered By: Reji Reyna on 03-03-2023 Erythrocyte distribution width (RBC) [Entitic vol] 53.8 fL 35.1-43.9 [facility] Erythrocyte distribution width (RBC) [Ratio] 14.0 % 11.6-14.6 [facility] Immature granulocytes/100 WBC (Bld) 0.700 % 0.0-0.9 [facility] Comment on above: IG% - Immature Granu locytes (promyelocytes, myelocytes and metamyelocytes) > 1% indicates that a LEFT SHIFT is Present. MCH (RBC) [Entitic mass] 34.9 pg 27.0-32.0 [facility] Nucleated RBC/100 WBC (Bld) [Ratio] 0 % 0-5 [facility] MCHC Auto (RBC) [Mass/Vol]Or dered By: Reji Reyna on 03-03-2023 MCHC (RBC) [Mass/Vol] 33.3 g/dL 32-36 [facility] No Panel InformationOrdered By: Reji Reyna on 03-03-2023 Estimated GFR (MDRD) Amer 96 mL/min >60 [facility] Comment on above: GFR Calc Estimated GFR (MDRD) Non-Af Amer 79 mL/min >60 [facility] Comment on above: Non- GFR Calc Platelets bldOrdered By: Fredy Reyna on 03-03-2023 Platelets (Bld) [#/Vol] 141 10*3/uL 150-450 [facility] Serum or plasma albumin yonatan urement (mass/volume)Ordered By: Reji Reyna on 03-03-2023 Albumin [Mass/Vol] 3.0 g/dL 3.2-5.0 [facility] Serum or plasma albumin/glob ulin mass ratioOrdered By: Reji Reyna on 03-03-2023 Albumin/Globulin [Mass ratio] 0.7 {ratio} 0.9-2.4 [facility] Serum or plasma calcium yonatan urement (mass/volume)Ordered By: Reji Reyna on 03-03-2023 Calcium [Mass/Vol] 9.0 mg/dL 8.5-10.1 [facility] Serum or plasma creatinine m easurement (mass/volume)Ordered By: Reji Reyna on 03-03-2023 Creatinine [Mass/Vol] 0.74 mg/dL 0.55-1.02 [facility] Comment on above: The validity of the calculated GFR & GFRAA in patients over 70 years has not been determined. Clinical correlation is essential. Serum or plasma urea nitroge n measurement (mass/volume)Ordered By: Reji Gopalrejialyssa on 03-03-2023 Urea nitrogen [Mass/Vol] 15 mg/dL 7-18 [facility] Thin prep Papanicolaou smear with manual screeningOrdered By: Reji Reyna on 03-03-2023 Thin prep Papanicolaou smear with manual screening 38 U/L 15-37 [facility] Thin prep Papanicolaou smear with manual screening 5 5-15 [facility] Absolute lymphocyte countOrd ered By: Reji Reyna on 02-03-2023 Lymphocytes Auto (Unsp spec) [#/Vol] 1.74 10*3/uL 0.83-4.51 [facility] Basophil percentageOrdered B y: Reji Reyna on 02-03-2023 Basophils/100 WBC (Bld) 0.6 % 0-1 [facility] Bilirubin [Mass/Vol] 0.70 mg/dL 0.20-1.[address] [facility] Comment on above: For patients on eltr ombopag therapy, use of Dimension [place] TBIL is not recommended. Chloride [Moles/Vol] 108 mmol/L 98-[address] [facility] Eosinophils/100 WBC (Bld) 1.4 % 0-5 [facility] Glucose [Mass/Vol] 79 mg/dL 74-106 [facility] Neutrophils (Bld) [#/Vol] 4.5 10*3/uL 2.0-7.7 [facility] Neutrophils/100 WBC (Bld) 62.8 % 47-70 [facility] Potassium [Moles/Vol] 3.8 mmol/L 3.5-5.1 [facility] Protein [Mass/Vol] 7.3 g/dL 6.4-8.2 [facility] Sodium [Moles/Vol] 141 mmol/L 136-145 [facility] WBC (Bld) [#/Vol] 7.1 10*3/uL 4.4-11.0 [facility] Blood erythrocytes count (nu mber/volume)Ordered By: Reji Reyna on 02-03-2023 RBC (Bld) [#/Vol] 3.58 10*6/uL 4.2-5.4 [facility] Blood hemoglobin measurement (mass/volume)Ordered By: Reji Reyna on 02-03-2023 Hemoglobin (Bld) [Mass/Vol] 12.3 g/dL 12.0-15.0 [facility] Blood lymphocytes/100 leukoc ytesOrdered By: meryleast branchgarfield Reyna on 02-03-2023 Lymphocytes/100 WBC (Bld) 24.5 % 19-41 [facility] Blood monocytes/100 leukocyt esOrdered By: meryleast branchgarfield Reyna on 02-03-2023 Monocytes/100 WBC (Bld) 10.4 % 0-10 [facility] Blood platelet mean volumeOr dered By: Reji Reyna on 02-03-2023 Platelet mean volume (Bld) [Entitic vol] 9.4 fL 6.2-12.0 [facility] Determination of erythrocyte mean corpuscular volume (MCV)Ordered By: Reji Reyna on 02-03-2023 MCV (RBC) [Entitic vol] 103.9 fL 81-99 [facility] Hematocrit Auto (Bld) [Volum e fraction]Ordered By: Reji Reyna on 02-03-2023 Hematocrit (Bld) [Volume fraction] 37.2 % 37-47 [facility] Laboratory - Chemistry and C hemistry - challengeOrdered By: Reji Reyna on 02-03-2023 ALP [Catalytic activity/Vol] 88 U/L 45-117 [facility] ALT [Catalytic activity/Vol] 36 U/L 13-56 [facility] CO2 [Moles/Vol] 27.0 mmol/L 21.0-32.0 [facility] Globulin (S) [Mass/Vol] 4.5 g/dL 2.2-4.2 [facility] Urea nitrogen/Creatinine [Mass ratio] 22.9 mg/mg 10- [facility] Laboratory - Hematology and Cell countsOrdered By: Reji Reyna on 02-03-2023 Erythrocyte distribution width (RBC) [Entitic vol] 55.1 fL 35.1-43.9 [facility] Erythrocyte distribution width (RBC) [Ratio] 14.5 % 11.6-14.6 [facility] Immature granulocytes/100 WBC (Bld) 0.300 % 0.0-0.9 [facility] Comment on above: IG% - Immature Granu locytes (promyelocytes, myelocytes and metamyelocytes) > 1% indicates that a LEFT SHIFT is Present. MCH (RBC) [Entitic mass] 34.4 pg 27.0-32.0 [facility] Nucleated RBC/100 WBC (Bld) [Ratio] 0 % 0-5 [facility] MCHC Auto (RBC) [Mass/Vol]Or dered By: Reji Reyna on 02-03-2023 MCHC (RBC) [Mass/Vol] 33.1 g/dL 32-36 [facility] No Panel InformationOrdered By: Reji Reyna on 02-03-2023 Estimated GFR (MDRD) Amer 110 mL/min >60 [facility] Comment on above: GFR Calc Estimated GFR (MDRD) Non-Af Amer 91 mL/min >60 [facility] Comment on above: Non- GFR Calc Platelets bldOrdered By: Fredy Reyna on 02-03-2023 Platelets (Bld) [#/Vol] 134 10*3/uL 150-450 [facility] Serum or plasma albumin yonatan urement (mass/volume)Ordered By: Reji Reyna on 02-03-2023 Albumin [Mass/Vol] 2.8 g/dL 3.2-5.0 [facility] Serum or plasma albumin/glob ulin mass ratioOrdered By: Reji Reyna on 02-03-2023 Albumin/Globulin [Mass ratio] 0.6 {ratio} 0.9-2.4 [facility] Serum or plasma calcium yonatan urement (mass/volume)Ordered By: Reji Reyna on 02-03-2023 Calcium [Mass/Vol] 9.2 mg/dL 8.5-10.1 [facility] Serum or plasma creatinine m easurement (mass/volume)Ordered By: Reji Reyna on 02-03-2023 Creatinine [Mass/Vol] 0.66 mg/dL 0.55-1.02 [facility] Comment on above: The validity of the calculated GFR & GFRAA in patients over 70 years has not been determined. Clinical correlation is essential. Serum or plasma urea nitroge n measurement (mass/volume)Ordered By: Reji Reyna on 02-03-2023 Urea nitrogen [Mass/Vol] 15 mg/dL 7-18 [facility] Thin prep Papanicolaou smear with manual screeningOrdered By: arline Reyna on 02-03-2023 Thin prep Papanicolaou smear with manual screening 29 U/L 15-37 [facility] Thin prep Papanicolaou smear with manual screening 6 5-15 [facility] Absolute lymphocyte countOrd ered By: Angelitomerylmichaelgarfield Reyna on 12-30-2022 Lymphocytes Auto (Unsp spec) [#/Vol] 1.24 10*3/uL 0.83-4.51 [facility] Basophil percentageOrdered B y: Jamisongarfield Herronrejialyssa on 12-30-2022 Basophils/100 WBC (Bld) 0.8 % 0-1 [facility] Bilirubin [Mass/Vol] 0.60 mg/dL 0.20-1.[address] [facility] Comment on above: For patients on eltr ombopag therapy, use of Dimension [place] TBIL is not recommended. Chloride [Moles/Vol] 111 mmol/L 98-[address] [facility] Eosinophils/100 WBC (Bld) 2.6 % 0-5 [facility] Glucose [Mass/Vol] 81 mg/dL 74-106 [facility] Neutrophils (Bld) [#/Vol] 2.9 10*3/uL 2.0-7.7 [facility] Neutrophils/100 WBC (Bld) 57.5 % 47-70 [facility] Potassium [Moles/Vol] 4.1 mmol/L 3.5-5.1 [facility] Protein [Mass/Vol] 6.8 g/dL 6.4-8.2 [facility] Sodium [Moles/Vol] 141 mmol/L 136-145 [facility] WBC (Bld) [#/Vol] 5.0 10*3/uL 4.4-11.0 [facility] Blood erythrocytes count (nu mber/volume)Ordered By: Reij Reyna on 12-30-2022 RBC (Bld) [#/Vol] 3.26 10*6/uL 4.2-5.4 [facility] Blood hemoglobin measurement (mass/volume)Ordered By: Reji Reyna on 12-30-2022 Hemoglobin (Bld) [Mass/Vol] 11.8 g/dL 12.0-15.0 [facility] Blood lymphocytes/100 leukoc ytesOrdered By: Reji Reyna on 12-30-2022 Lymphocytes/100 WBC (Bld) 25.0 % 19-41 [facility] Blood monocytes/100 leukocyt esOrdered By: Reji Reyna on 12-30-2022 Monocytes/100 WBC (Bld) 13.9 % 0-10 [facility] Blood platelet mean volumeOr dered By: Reji Reyna on 12-30-2022 Platelet mean volume (Bld) [Entitic vol] 10.1 fL 6.2-12.0 [facility] Determination of erythrocyte mean corpuscular volume (MCV)Ordered By: Reji Reyna on 12-30-2022 MCV (RBC) [Entitic vol] 104.6 fL 81-99 [facility] Hematocrit Auto (Bld) [Volum e fraction]Ordered By: Reji Reyna on 12-30-2022 Hematocrit (Bld) [Volume fraction] 34.1 % 37-47 [facility] Laboratory - Chemistry and C hemistry - challengeOrdered By: Reji Reyna on 12-30-2022 ALP [Catalytic activity/Vol] 89 U/L 45-117 [facility] ALT [Catalytic activity/Vol] 25 U/L 13-56 [facility] CO2 [Moles/Vol] 25.0 mmol/L 21.0-32.0 [facility] Globulin (S) [Mass/Vol] 4.0 g/dL 2.2-4.2 [facility] Urea nitrogen/Creatinine [Mass ratio] 21.3 mg/mg 10-20 [facility] Laboratory - Hematology and Cell countsOrdered By: Reji Reyna on 12-30-2022 Erythrocyte distribution width (RBC) [Entitic vol] 53.4 fL 35.1-43.9 [facility] Erythrocyte distribution width (RBC) [Ratio] 14.1 % 11.6-14.6 [facility] Immature granulocytes/100 WBC (Bld) 0.200 % 0.0-0.9 [facility] Comment on above: IG% - Immature Granu locytes (promyelocytes, myelocytes and metamyelocytes) > 1% indicates that a LEFT SHIFT is Present. MCH (RBC) [Entitic mass] 36.2 pg 27.0-32.0 [facility] Nucleated RBC/100 WBC (Bld) [Ratio] 0 % 0-5 [facility] MCHC Auto (RBC) [Mass/Vol]Or dered By: Reji Reyna on 12-30-2022 MCHC (RBC) [Mass/Vol] 34.6 g/dL 32-36 [facility] No Panel InformationOrdered By: Reji Reyna on 12-30-2022 Estimated GFR (MDRD) Amer 120 mL/min >60 [facility] Comment on above: GFR Calc Estimated GFR (MDRD) Non-Af Amer 99 mL/min >60 [facility] Comment on above: Non- GFR Calc Platelets bldOrdered By: Fredy Reyna on 12-30-2022 Platelets (Bld) [#/Vol] 111 10*3/uL 150-450 [facility] Serum or plasma albumin yonatan urement (mass/volume)Ordered By: Reji Reyna on 12-30-2022 Albumin [Mass/Vol] 2.8 g/dL 3.2-5.0 [facility] Serum or plasma albumin/glob ulin mass ratioOrdered By: Reji Reyna on 12-30-2022 Albumin/Globulin [Mass ratio] 0.7 {ratio} 0.9-2.4 [facility] Serum or plasma calcium yonatan urement (mass/volume)Ordered By: Reji Reyna on 12-30-2022 Calcium [Mass/Vol] 9.1 mg/dL 8.5-10.1 [facility] Serum or plasma creatinine m easurement (mass/volume)Ordered By: Reji Reyna on 12-30-2022 Creatinine [Mass/Vol] 0.61 mg/dL 0.55-1.02 [facility] Comment on above: The validity of the calculated GFR & GFRAA in patients over 70 years has not been determined. Clinical correlation is essential. Serum or plasma urea nitroge n measurement (mass/volume)Ordered By: Reji Reyna on 12-30-2022 Urea nitrogen [Mass/Vol] 13 mg/dL 7-18 [facility] Thin prep Papanicolaou smear with manual screeningOrdered By: Reji Reyna on 12-30-2022 Thin prep Papanicolaou smear with manual screening 25 U/L 15-37 [facility] Thin prep Papanicolaou smear with manual screening 5 5-15 [facility] Absolute lymphocyte countOrd ered By: Reji Reyna on 12-02-2022 Lymphocytes Auto (Unsp spec) [#/Vol] 1.55 10*3/uL 0.83-4.51 [facility] Basophil percentageOrdered B y: Reji Reyna on 12-02-2022 Basophils/100 WBC (Bld) 0.4 % 0-1 [facility] Bilirubin [Mass/Vol] 0.60 mg/dL 0.20-1.[address] [facility] Comment on above: For patients on eltr ombopag therapy, use of Dimension [place] TBIL is not recommended. Chloride [Moles/Vol] 109 mmol/L 98-[address] [facility] Eosinophils/100 WBC (Bld) 2.3 % 0-5 [facility] Glucose [Mass/Vol] 82 mg/dL 74-106 [facility] Neutrophils (Bld) [#/Vol] 3.0 10*3/uL 2.0-7.7 [facility] Neutrophils/100 WBC (Bld) 56.8 % 47-70 [facility] Potassium [Moles/Vol] 4.5 mmol/L 3.5-5.1 [facility] Protein [Mass/Vol] 7.0 g/dL 6.4-8.2 [facility] Sodium [Moles/Vol] 140 mmol/L 136-145 [facility] WBC (Bld) [#/Vol] 5.3 10*3/uL 4.4-11.0 [facility] Blood erythrocytes count (nu mber/volume)Ordered By: Reji Reyna on 12-02-2022 RBC (Bld) [#/Vol] 3.54 10*6/uL 4.2-5.4 [facility] Blood hemoglobin measurement (mass/volume)Ordered By: Reji Reyna on 12-02-2022 Hemoglobin (Bld) [Mass/Vol] 12.2 g/dL 12.0-15.0 [facility] Blood lymphocytes/100 leukoc ytesOrdered By: Reji Reyna on 12-02-2022 Lymphocytes/100 WBC (Bld) 29.3 % 19-41 [facility] Blood monocytes/100 leukocyt esOrdered By: Reji Reyna on 12-02-2022 Monocytes/100 WBC (Bld) 10.8 % 0-10 [facility] Blood platelet mean volumeOr dered By: Reji Reyna on 12-02-2022 Platelet mean volume (Bld) [Entitic vol] 10.1 fL 6.2-12.0 [facility] Determination of erythrocyte mean corpuscular volume (MCV)Ordered By: Reji Reyna on 12-02-2022 MCV (RBC) [Entitic vol] 104.8 fL 81-99 [facility] Hematocrit Auto (Bld) [Volum e fraction]Ordered By: Reji Reyna on 12-02-2022 Hematocrit (Bld) [Volume fraction] 37.1 % 37-47 [facility] Laboratory - Chemistry and C hemistry - challengeOrdered By: Reji Reyna on 12-02-2022 ALP [Catalytic activity/Vol] 90 U/L 45-117 [facility] ALT [Catalytic activity/Vol] 30 U/L 13-56 [facility] CO2 [Moles/Vol] 26.0 mmol/L 21.0-32.0 [facility] Globulin (S) [Mass/Vol] 4.0 g/dL 2.2-4.2 [facility] Urea nitrogen/Creatinine [Mass ratio] 25.4 mg/mg 10-20 [facility] Laboratory - Hematology and Cell countsOrdered By: Reji Reyna on 12-02-2022 Erythrocyte distribution width (RBC) [Entitic vol] 51.2 fL 35.1-43.9 [facility] Erythrocyte distribution width (RBC) [Ratio] 13.4 % 11.6-14.6 [facility] Immature granulocytes/100 WBC (Bld) 0.400 % 0.0-0.9 [facility] Comment on above: IG% - Immature Granu locytes (promyelocytes, myelocytes and metamyelocytes) > 1% indicates that a LEFT SHIFT is Present. MCH (RBC) [Entitic mass] 34.5 pg 27.0-32.0 [facility] Nucleated RBC/100 WBC (Bld) [Ratio] 0 % 0-5 [facility] MCHC Auto (RBC) [Mass/Vol]Or dered By: Reji Reyna on 12-02-2022 MCHC (RBC) [Mass/Vol] 32.9 g/dL 32-36 [facility] No Panel InformationOrdered By: Reji Reyna on 12-02-2022 Estimated GFR (MDRD) Amer 115 mL/min >60 [facility] Comment on above: GFR Calc Estimated GFR (MDRD) Non-Af Amer 95 mL/min >60 [facility] Comment on above: Non- GFR Calc Platelets bldOrdered By: Fredy Reyna on 12-02-2022 Platelets (Bld) [#/Vol] 117 10*3/uL 150-450 [facility] Serum or plasma albumin yonatan urement (mass/volume)Ordered By: Reji Reyna on 12-02-2022 Albumin [Mass/Vol] 3.0 g/dL 3.2-5.0 [facility] Serum or plasma albumin/glob ulin mass ratioOrdered By: Reji Reyna on 12-02-2022 Albumin/Globulin [Mass ratio] 0.8 {ratio} 0.9-2.4 [facility] Serum or plasma calcium yonatan urement (mass/volume)Ordered By: Reji Reyna on 12-02-2022 Calcium [Mass/Vol] 8.9 mg/dL 8.5-10.1 [facility] Serum or plasma creatinine m easurement (mass/volume)Ordered By: Reji Reyna on 12-02-2022 Creatinine [Mass/Vol] 0.63 mg/dL 0.55-1.02 [facility] Comment on above: The validity of the calculated GFR & GFRAA in patients over 70 years has not been determined. Clinical correlation is essential. Serum or plasma urea nitroge n measurement (mass/volume)Ordered By: Reji Reyna on 12-02-2022 Urea nitrogen [Mass/Vol] 16 mg/dL 7-18 [facility] Thin prep Papanicolaou smear with manual screeningOrdered By: Reji Reyna on 12-02-2022 Thin prep Papanicolaou smear with manual screening 34 U/L 15-37 [facility] Thin prep Papanicolaou smear with manual screening 5 5-15 [facility] XR WRIST GENERAL 3V PA/LAT/O BL RIGHTon 11-25-2022 [facility] Absolute lymphocyte countOrd ered By: Reji Reyna on 11-04-2022 Lymphocytes Auto (Unsp spec) [#/Vol] 1.45 10*3/uL 0.83-4.51 [facility] Basophil percentageOrdered B y: Reji Reyna on 11-04-2022 Basophils/100 WBC (Bld) 0.7 % 0-1 [facility] Bilirubin [Mass/Vol] 0.60 mg/dL 0.20-1.[address] [facility] Comment on above: For patients on eltr ombopag therapy, use of Dimension [place] TBIL is not recommended. Chloride [Moles/Vol] 111 mmol/L 98-[address] [facility] Eosinophils/100 WBC (Bld) 2.4 % 0-5 [facility] Glucose [Mass/Vol] 84 mg/dL 74-106 [facility] Neutrophils (Bld) [#/Vol] 2.4 10*3/uL 2.0-7.7 [facility] Neutrophils/100 WBC (Bld) 52.9 % 47-70 [facility] Potassium [Moles/Vol] 4.0 mmol/L 3.5-5.1 [facility] Protein [Mass/Vol] 7.2 g/dL 6.4-8.2 [facility] Sodium [Moles/Vol] 141 mmol/L 136-145 [facility] WBC (Bld) [#/Vol] 4.6 10*3/uL 4.4-11.0 [facility] Blood erythrocytes count (nu mber/volume)Ordered By: Reji Reyna on 11-04-2022 RBC (Bld) [#/Vol] 3.31 10*6/uL 4.2-5.4 [facility] Blood hemoglobin measurement (mass/volume)Ordered By: Reji Reyna on 11-04-2022 Hemoglobin (Bld) [Mass/Vol] 11.5 g/dL 12.0-15.0 [facility] Blood lymphocytes/100 leukoc ytesOrdered By: Reji Reyna on 11-04-2022 Lymphocytes/100 WBC (Bld) 31.9 % 19-41 [facility] Blood monocytes/100 leukocyt esOrdered By: Reji Reyna on 11-04-2022 Monocytes/100 WBC (Bld) 11.9 % 0-10 [facility] Blood platelet mean volumeOr dered By: Reji Reyna on 11-04-2022 Platelet mean volume (Bld) [Entitic vol] 10.0 fL 6.2-12.0 [facility] Determination of erythrocyte mean corpuscular volume (MCV)Ordered By: Reji Reyna on 11-04-2022 MCV (RBC) [Entitic vol] 107.6 fL 81-99 [facility] Hematocrit Auto (Bld) [Volum e fraction]Ordered By: Reji Reyna on 11-04-2022 Hematocrit (Bld) [Volume fraction] 35.6 % 37-47 [facility] Laboratory - Chemistry and C hemistry - challengeOrdered By: Reji Reyna on 11-04-2022 ALP [Catalytic activity/Vol] 88 U/L 45-117 [facility] ALT [Catalytic activity/Vol] 22 U/L 13-56 [facility] CO2 [Moles/Vol] 26.0 mmol/L 21.0-32.0 [facility] Globulin (S) [Mass/Vol] 4.3 g/dL 2.2-4.2 [facility] Urea nitrogen/Creatinine [Mass ratio] 21.2 mg/mg 10-20 [facility] Laboratory - Hematology and Cell countsOrdered By: Reji Reyna on 11-04-2022 Erythrocyte distribution width (RBC) [Entitic vol] 52.2 fL 35.1-43.9 [facility] Erythrocyte distribution width (RBC) [Ratio] 13.2 % 11.6-14.6 [facility] Immature granulocytes/100 WBC (Bld) 0.200 % 0.0-0.9 [facility] Comment on above: IG% - Immature Granu locytes (promyelocytes, myelocytes and metamyelocytes) > 1% indicates that a LEFT SHIFT is Present. MCH (RBC) [Entitic mass] 34.7 pg 27.0-32.0 [facility] Nucleated RBC/100 WBC (Bld) [Ratio] 0 % 0-5 [facility] MCHC Auto (RBC) [Mass/Vol]Or dered By: Reji Reyna on 11-04-2022 MCHC (RBC) [Mass/Vol] 32.3 g/dL 32-36 [facility] No Panel InformationOrdered By: Reji Reyna on 11-04-2022 Estimated GFR (MDRD) Amer 119 mL/min >60 [facility] Comment on above: GFR Calc Estimated GFR (MDRD) Non-Af Amer 98 mL/min >60 [facility] Comment on above: Non- GFR Calc Thyroid Stimulating Hormone (TSH) 0.93 uIU/mL 0.358-3.74 [facility] Platelets bldOrdered By: Fredy Reyna on 11-04-2022 Platelets (Bld) [#/Vol] 114 10*3/uL 150-450 [facility] Serum or plasma albumin yonatan urement (mass/volume)Ordered By: Jasmichaelgarfield Herronrejialyssa on 11-04-2022 Albumin [Mass/Vol] 2.9 g/dL 3.2-5.0 [facility] Serum or plasma albumin/glob ulin mass ratioOrdered By: Angelitomerylmichaelgarfield Herronrejialyssa on 11-04-2022 Albumin/Globulin [Mass ratio] 0.7 {ratio} 0.9-2.4 [facility] Serum or plasma calcium yonatan urement (mass/volume)Ordered By: Angelitomerylmichaelgarfield Herronrejialyssa on 11-04-2022 Calcium [Mass/Vol] 9.4 mg/dL 8.5-10.1 [facility] Serum or plasma creatinine m easurement (mass/volume)Ordered By: Angelitomerylmichaelgarfield Reyna on 11-04-2022 Creatinine [Mass/Vol] 0.61 mg/dL 0.55-1.02 [facility] Comment on above: The validity of the calculated GFR & GFRAA in patients over 70 years has not been determined. Clinical correlation is essential. Serum or plasma urea nitroge n measurement (mass/volume)Ordered By: Angelitomerylmichaelgarfield Reyna on 11-04-2022 Urea nitrogen [Mass/Vol] 13 mg/dL 7-18 [facility] Thin prep Papanicolaou smear with manual screeningOrdered By: Angelitomerylmichaelgarfield Reyna on 11-04-2022 Thin prep Papanicolaou smear with manual screening 29 U/L 15-37 [facility] Thin prep Papanicolaou smear with manual screening 4 5-15 [facility] Absolute lymphocyte countOrd ered By: Jamisongarfield Herronrejialyssa on 09-30-2022 Lymphocytes Auto (Unsp spec) [#/Vol] 1.40 10*3/uL 0.83-4.51 [facility] Basophil percentageOrdered B y: Angelitomerylmichaelgarfield Reyna on 09-30-2022 Basophils/100 WBC (Bld) 0.5 % 0-1 [facility] Bilirubin [Mass/Vol] 0.80 mg/dL 0.20-1.[address] [facility] Comment on above: For patients on eltr ombopag therapy, use of Dimension [place] TBIL is not recommended. Chloride [Moles/Vol] 113 mmol/L 98-[address] [facility] Eosinophils/100 WBC (Bld) 2.2 % 0-5 [facility] Glucose [Mass/Vol] 80 mg/dL 74-106 [facility] Neutrophils (Bld) [#/Vol] 2.2 10*3/uL 2.0-7.7 [facility] Neutrophils/100 WBC (Bld) 52.0 % 47-70 [facility] Potassium [Moles/Vol] 3.8 mmol/L 3.5-5.1 [facility] Protein [Mass/Vol] 6.6 g/dL 6.4-8.2 [facility] Sodium [Moles/Vol] 142 mmol/L 136-145 [facility] WBC (Bld) [#/Vol] 4.1 10*3/uL 4.4-11.0 [facility] Blood erythrocytes count (nu mber/volume)Ordered By: Reji Reyna on 09-30-2022 RBC (Bld) [#/Vol] 2.92 10*6/uL 4.2-5.4 [facility] Blood hemoglobin measurement (mass/volume)Ordered By: Reji Reyna on 09-30-2022 Hemoglobin (Bld) [Mass/Vol] 10.7 g/dL 12.0-15.0 [facility] Blood lymphocytes/100 leukoc ytesOrdered By: Reji Reyna on 09-30-2022 Lymphocytes/100 WBC (Bld) 33.9 % 19-41 [facility] Blood monocytes/100 leukocyt esOrdered By: Reji Reyna on 09-30-2022 Monocytes/100 WBC (Bld) 11.4 % 0-10 [facility] Blood platelet mean volumeOr dered By: Reji Reyna on 09-30-2022 Platelet mean volume (Bld) [Entitic vol] 9.8 fL 6.2-12.0 [facility] Determination of erythrocyte mean corpuscular volume (MCV)Ordered By: Reji Reyna on 09-30-2022 MCV (RBC) [Entitic vol] 108.2 fL 81-99 [facility] Hematocrit Auto (Bld) [Volum e fraction]Ordered By: [facility] Herronalyssa on 09-30-2022 Hematocrit (Bld) [Volume fraction] 31.6 % 37-47 [facility] Laboratory - Chemistry and C hemistry - challengeOrdered By: [facility] Reyna on 09-30-2022 ALP [Catalytic activity/Vol] 77 U/L 45-117 [facility] ALT [Catalytic activity/Vol] 20 U/L 13-56 [facility] CO2 [Moles/Vol] 24.0 mmol/L 21.0-32.0 [facility] Globulin (S) [Mass/Vol] 3.9 g/dL 2.2-4.2 [facility] Urea nitrogen/Creatinine [Mass ratio] 20.1 mg/mg 10-20 [facility] Laboratory - Hematology and Cell countsOrdered By: meryleast branchgarfield Herronalyssa on 09-30-2022 Erythrocyte distribution width (RBC) [Entitic vol] 56.6 fL 35.1-43.9 [facility] Erythrocyte distribution width (RBC) [Ratio] 14.3 % 11.6-14.6 [facility] Immature granulocytes/100 WBC (Bld) 0.000 % 0.0-0.9 [facility] Comment on above: IG% - Immature Granu locytes (promyelocytes, myelocytes and metamyelocytes) > 1% indicates that a LEFT SHIFT is Present. MCH (RBC) [Entitic mass] 36.6 pg 27.0-32.0 [facility] Nucleated RBC/100 WBC (Bld) [Ratio] 0 % 0-5 [facility] MCHC Auto (RBC) [Mass/Vol]Or dered By: arline Reyna on 09-30-2022 MCHC (RBC) [Mass/Vol] 33.9 g/dL 32-36 [facility] No Panel InformationOrdered By: meryleast branchgarfield Reyna on 09-30-2022 Estimated GFR (MDRD) Amer 112 mL/min >60 [facility] Comment on above: GFR Calc Estimated GFR (MDRD) Non-Af Amer 92 mL/min >60 [facility] Comment on above: Non- GFR Calc Platelets bldOrdered By: Fredy edwardogarfield Reyna on 09-30-2022 Platelets (Bld) [#/Vol] 104 10*3/uL 150-450 [facility] Serum or plasma albumin yonatan urement (mass/volume)Ordered By: Reji Reyna on 09-30-2022 Albumin [Mass/Vol] 2.7 g/dL 3.2-5.0 [facility] Serum or plasma albumin/glob ulin mass ratioOrdered By: Reji Reyna on 09-30-2022 Albumin/Globulin [Mass ratio] 0.7 {ratio} 0.9-2.4 [facility] Serum or plasma calcium yonatan urement (mass/volume)Ordered By: Reji Reyna on 09-30-2022 Calcium [Mass/Vol] 8.8 mg/dL 8.5-10.1 [facility] Serum or plasma creatinine m easurement (mass/volume)Ordered By: Reji Reyna on 09-30-2022 Creatinine [Mass/Vol] 0.65 mg/dL 0.55-1.02 [facility] Comment on above: The validity of the calculated GFR & GFRAA in patients over 70 years has not been determined. Clinical correlation is essential. Serum or plasma urea nitroge n measurement (mass/volume)Ordered By: Reji Reyna on 09-30-2022 Urea nitrogen [Mass/Vol] 13 mg/dL 7-18 [facility] Thin prep Papanicolaou smear with manual screeningOrdered By: Reji Reyna on 09-30-2022 Thin prep Papanicolaou smear with manual screening 27 U/L 15-37 [facility] Thin prep Papanicolaou smear with manual screening 5 5-15 [facility] Absolute lymphocyte countOrd ered By: Reji Reyna on 09-19-2022 Lymphocytes Auto (Unsp spec) [#/Vol] 1.39 10*3/uL 0.83-4.51 [facility] Basophil percentageOrdered B y: Reji Reyna on 09-19-2022 Basophils/100 WBC (Bld) 0.5 % 0-1 [facility] Eosinophils/100 WBC (Bld) 2.0 % 0-5 [facility] Neutrophils (Bld) [#/Vol] 2.1 10*3/uL 2.0-7.7 [facility] Neutrophils/100 WBC (Bld) 51.6 % 47-70 [facility] WBC (Bld) [#/Vol] 4.1 10*3/uL 4.4-11.0 [facility] Blood erythrocytes count (nu mber/volume)Ordered By: Reji Reyna on 09-19-2022 RBC (Bld) [#/Vol] 2.84 10*6/uL 4.2-5.4 [facility] Blood hemoglobin measurement (mass/volume)Ordered By: Reji Reyna on 09-19-2022 Hemoglobin (Bld) [Mass/Vol] 10.2 g/dL 12.0-15.0 [facility] Blood lymphocytes/100 leukoc ytesOrdered By: Reji Reyna on 09-19-2022 Lymphocytes/100 WBC (Bld) 34.3 % 19-41 [facility] Blood monocytes/100 leukocyt esOrdered By: Reji Reyna on 09-19-2022 Monocytes/100 WBC (Bld) 11.4 % 0-10 [facility] Blood platelet mean volumeOr dered By: Reji Reyna on 09-19-2022 Platelet mean volume (Bld) [Entitic vol] 9.9 fL 6.2-12.0 [facility] Determination of erythrocyte mean corpuscular volume (MCV)Ordered By: Reji Reyna on 09-19-2022 MCV (RBC) [Entitic vol] 106.3 fL 81-99 [facility] Hematocrit Auto (Bld) [Volum e fraction]Ordered By: Reji Reyna on 09-19-2022 Hematocrit (Bld) [Volume fraction] 30.2 % 37-47 [facility] Laboratory - Hematology and Cell countsOrdered By: Reji Reyna on 09-19-2022 Erythrocyte distribution width (RBC) [Entitic vol] 56.1 fL 35.1-43.9 [facility] Erythrocyte distribution width (RBC) [Ratio] 14.3 % 11.6-14.6 [facility] Immature granulocytes/100 WBC (Bld) 0.200 % 0.0-0.9 [facility] Comment on above: IG% - Immature Granu locytes (promyelocytes, myelocytes and metamyelocytes) > 1% indicates that a LEFT SHIFT is Present. MCH (RBC) [Entitic mass] 35.9 pg 27.0-32.0 [facility] Nucleated RBC/100 WBC (Bld) [Ratio] 0 % 0-5 [facility] MCHC Auto (RBC) [Mass/Vol]Or dered By: Angelitomerylshine Maribell on 09-19-2022 MCHC (RBC) [Mass/Vol] 33.8 g/dL 32-36 [facility] Platelets bldOrdered By: Fredyalyssa ritter Maribell on 09-19-2022 Platelets (Bld) [#/Vol] 106 10*3/uL 150-450 [facility] Absolute lymphocyte countOrd ered By: Angelitomerylshine Maribell on 09-02-2022 Lymphocytes Auto (Unsp spec) [#/Vol] 1.47 10*3/uL 0.83-4.51 [facility] Basophil percentageOrdered B y: Jamisongarfield Reyna on 09-02-2022 Basophils/100 WBC (Bld) 0.8 % 0-1 [facility] Bilirubin [Mass/Vol] 0.90 mg/dL 0.20-1.[address] [facility] Comment on above: For patients on eltr ombopag therapy, use of Dimension [place] TBIL is not recommended. Chloride [Moles/Vol] 110 mmol/L 98-[address] [facility] Eosinophils/100 WBC (Bld) 1.6 % 0-5 [facility] Glucose [Mass/Vol] 83 mg/dL 74-106 [facility] Neutrophils (Bld) [#/Vol] 3.6 10*3/uL 2.0-7.7 [facility] Neutrophils/100 WBC (Bld) 60.1 % 47-70 [facility] Potassium [Moles/Vol] 4.0 mmol/L 3.5-5.1 [facility] Protein [Mass/Vol] 7.5 g/dL 6.4-8.2 [facility] Sodium [Moles/Vol] 141 mmol/L 136-145 [facility] WBC (Bld) [#/Vol] 6.1 10*3/uL 4.4-11.0 [facility] Blood erythrocytes count (nu mber/volume)Ordered By: Reji Reyna on 09-02-2022 RBC (Bld) [#/Vol] 3.50 10*6/uL 4.2-5.4 [facility] Blood hemoglobin measurement (mass/volume)Ordered By: Reji Reyna on 09-02-2022 Hemoglobin (Bld) [Mass/Vol] 12.2 g/dL 12.0-15.0 [facility] Blood lymphocytes/100 leukoc ytesOrdered By: Reji Reyna on 09-02-2022 Lymphocytes/100 WBC (Bld) 24.2 % 19-41 [facility] Blood monocytes/100 leukocyt esOrdered By: Reji Reyna on 09-02-2022 Monocytes/100 WBC (Bld) 13.0 % 0-10 [facility] Blood platelet mean volumeOr dered By: Reji Reyna on 09-02-2022 Platelet mean volume (Bld) [Entitic vol] 9.7 fL 6.2-12.0 [facility] Determination of erythrocyte mean corpuscular volume (MCV)Ordered By: Reji Reyna on 09-02-2022 MCV (RBC) [Entitic vol] 105.7 fL 81-99 [facility] Hematocrit Auto (Bld) [Volum e fraction]Ordered By: Reji Reyna on 09-02-2022 Hematocrit (Bld) [Volume fraction] 37.0 % 37-47 [facility] Laboratory - Chemistry and C hemistry - challengeOrdered By: Reji Reyna on 09-02-2022 ALP [Catalytic activity/Vol] 93 U/L 45-117 [facility] ALT [Catalytic activity/Vol] 24 U/L 13-56 [facility] CO2 [Moles/Vol] 25.0 mmol/L 21.0-32.0 [facility] Globulin (S) [Mass/Vol] 4.5 g/dL 2.2-4.2 [facility] Urea nitrogen/Creatinine [Mass ratio] 17.3 mg/mg 10-20 [facility] Laboratory - Hematology and Cell countsOrdered By: Reji Reyna on 09-02-2022 Erythrocyte distribution width (RBC) [Entitic vol] 53.6 fL 35.1-43.9 [facility] Erythrocyte distribution width (RBC) [Ratio] 13.7 % 11.6-14.6 [facility] Immature granulocytes/100 WBC (Bld) 0.300 % 0.0-0.9 [facility] Comment on above: IG% - Immature Granu locytes (promyelocytes, myelocytes and metamyelocytes) > 1% indicates that a LEFT SHIFT is Present. MCH (RBC) [Entitic mass] 34.9 pg 27.0-32.0 [facility] Nucleated RBC/100 WBC (Bld) [Ratio] 0 % 0-5 [facility] MCHC Auto (RBC) [Mass/Vol]Or dered By: Reji Reyna on 09-02-2022 MCHC (RBC) [Mass/Vol] 33.0 g/dL 32-36 [facility] No Panel InformationOrdered By: Reji Reyna on 09-02-2022 Estimated GFR (MDRD) Amer 103 mL/min >60 [facility] Comment on above: GFR Calc Estimated GFR (MDRD) Non-Af Amer 85 mL/min >60 [facility] Comment on above: Non- GFR Calc Platelets bldOrdered By: Fredy Reyna on 09-02-2022 Platelets (Bld) [#/Vol] 104 10*3/uL 150-450 [facility] Serum or plasma albumin yonatan urement (mass/volume)Ordered By: Reji Reyna on 09-02-2022 Albumin [Mass/Vol] 3.0 g/dL 3.2-5.0 [facility] Serum or plasma albumin/glob ulin mass ratioOrdered By: Reji Reyna on 09-02-2022 Albumin/Globulin [Mass ratio] 0.7 {ratio} 0.9-2.4 [facility] Serum or plasma calcium yonatan urement (mass/volume)Ordered By: Reji Reyna on 09-02-2022 Calcium [Mass/Vol] 9.5 mg/dL 8.5-10.1 [facility] Serum or plasma creatinine m easurement (mass/volume)Ordered By: Reji Reyna on 09-02-2022 Creatinine [Mass/Vol] 0.69 mg/dL 0.55-1.02 [facility] Comment on above: The validity of the calculated GFR & GFRAA in patients over 70 years has not been determined. Clinical correlation is essential. Serum or plasma urea nitroge n measurement (mass/volume)Ordered By: Reji Reyna on 09-02-2022 Urea nitrogen [Mass/Vol] 12 mg/dL 7-18 [facility] Thin prep Papanicolaou smear with manual screeningOrdered By: Reji Reyna on 09-02-2022 Thin prep Papanicolaou smear with manual screening 27 U/L 15-37 [facility] Thin prep Papanicolaou smear with manual screening 6 5-15 [facility] Absolute lymphocyte countOrd ered By: Reji Reyna on 07-29-2022 Lymphocytes Auto (Unsp spec) [#/Vol] 1.03 10*3/uL 0.83-4.51 [facility] Basophil percentageOrdered B y: Reji Reyna on 07-29-2022 Basophils/100 WBC (Bld) 0.6 % 0-1 [facility] Bilirubin [Mass/Vol] 0.80 mg/dL 0.20-1.[address] [facility] Comment on above: For patients on eltr ombopag therapy, use of Dimension [place] TBIL is not recommended. Chloride [Moles/Vol] 110 mmol/L 98-[address] [facility] Eosinophils/100 WBC (Bld) 1.8 % 0-5 [facility] Glucose [Mass/Vol] 75 mg/dL 74-106 [facility] Neutrophils (Bld) [#/Vol] 3.1 10*3/uL 2.0-7.7 [facility] Neutrophils/100 WBC (Bld) 62.1 % 47-70 [facility] Potassium [Moles/Vol] 4.1 mmol/L 3.5-5.1 [facility] Protein [Mass/Vol] 6.9 g/dL 6.4-8.2 [facility] Sodium [Moles/Vol] 141 mmol/L 136-145 [facility] WBC (Bld) [#/Vol] 5.0 10*3/uL 4.4-11.0 [facility] Blood erythrocytes count (nu mber/volume)Ordered By: Reji Reyna on 07-29-2022 RBC (Bld) [#/Vol] 3.25 10*6/uL 4.2-5.4 [facility] Blood hemoglobin measurement (mass/volume)Ordered By: Reji Reyna on 07-29-2022 Hemoglobin (Bld) [Mass/Vol] 11.6 g/dL 12.0-15.0 [facility] Blood lymphocytes/100 leukoc ytesOrdered By: Reji Reyna on 07-29-2022 Lymphocytes/100 WBC (Bld) 20.8 % 19-41 [facility] Blood monocytes/100 leukocyt esOrdered By: Reji Reyna on 07-29-2022 Monocytes/100 WBC (Bld) 14.5 % 0-10 [facility] Blood platelet mean volumeOr dered By: Reji Reyna on 07-29-2022 Platelet mean volume (Bld) [Entitic vol] 9.7 fL 6.2-12.0 [facility] Determination of erythrocyte mean corpuscular volume (MCV)Ordered By: Reji Reyna on 07-29-2022 MCV (RBC) [Entitic vol] 106.5 fL 81-99 [facility] Hematocrit Auto (Bld) [Volum e fraction]Ordered By: Reji Reyna on 07-29-2022 Hematocrit (Bld) [Volume fraction] 34.6 % 37-47 [facility] Laboratory - Chemistry and C hemistry - challengeOrdered By: Reji Reyna on 07-29-2022 ALP [Catalytic activity/Vol] 91 U/L 45-117 [facility] ALT [Catalytic activity/Vol] 23 U/L 13-56 [facility] CO2 [Moles/Vol] 24.0 mmol/L 21.0-32.0 [facility] Globulin (S) [Mass/Vol] 4.1 g/dL 2.2-4.2 [facility] Urea nitrogen/Creatinine [Mass ratio] 23.1 mg/mg 10-20 [facility] Laboratory - Hematology and Cell countsOrdered By: Reji Reyna on 07-29-2022 Erythrocyte distribution width (RBC) [Entitic vol] 53.7 fL 35.1-43.9 [facility] Erythrocyte distribution width (RBC) [Ratio] 13.7 % 11.6-14.6 [facility] Immature granulocytes/100 WBC (Bld) 0.200 % 0.0-0.9 [facility] Comment on above: IG% - Immature Granu locytes (promyelocytes, myelocytes and metamyelocytes) > 1% indicates that a LEFT SHIFT is Present. MCH (RBC) [Entitic mass] 35.7 pg 27.0-32.0 [facility] Nucleated RBC/100 WBC (Bld) [Ratio] 0 % 0-5 [facility] MCHC Auto (RBC) [Mass/Vol]Or dered By: Reji Reyna on 07-29-2022 MCHC (RBC) [Mass/Vol] 33.5 g/dL 32-36 [facility] No Panel InformationOrdered By: Reji Reyna on 07-29-2022 Estimated GFR (MDRD) Amer 131 mL/min >60 [facility] Comment on above: GFR Calc Estimated GFR (MDRD) Non-Af Amer 109 mL/min >60 [facility] Comment on above: Non- GFR Calc Platelets bldOrdered By: Fredy Reyna on 07-29-2022 Platelets (Bld) [#/Vol] 112 10*3/uL 150-450 [facility] Serum or plasma albumin yonatan urement (mass/volume)Ordered By: Reji Reyna on 07-29-2022 Albumin [Mass/Vol] 2.8 g/dL 3.2-5.0 [facility] Serum or plasma albumin/glob ulin mass ratioOrdered By: Reji Reyna on 07-29-2022 Albumin/Globulin [Mass ratio] 0.7 {ratio} 0.9-2.4 [facility] Serum or plasma calcium yonatan urement (mass/volume)Ordered By: Reji Reyna on 07-29-2022 Calcium [Mass/Vol] 9.4 mg/dL 8.5-10.1 [facility] Serum or plasma creatinine m easurement (mass/volume)Ordered By: Reji Reyna on 07-29-2022 Creatinine [Mass/Vol] 0.56 mg/dL 0.55-1.02 [facility] Comment on above: The validity of the calculated GFR & GFRAA in patients over 70 years has not been determined. Clinical correlation is essential. Serum or plasma urea nitroge n measurement (mass/volume)Ordered By: Reji Reyna on 07-29-2022 Urea nitrogen [Mass/Vol] 13 mg/dL 7-18 [facility] Thin prep Papanicolaou smear with manual screeningOrdered By: Reji Reyna on 07-29-2022 Thin prep Papanicolaou smear with manual screening 29 U/L [facility] Thin prep Papanicolaou smear with manual screening 7 - [facility] Absolute lymphocyte countOrd ered By: Reji Reyna on 07-01-2022 Lymphocytes Auto (Unsp spec) [#/Vol] 1.43 10*3/uL 0.83-4.51 [facility] Basophil percentageOrdered B y: Reji Reyna on 07-01-2022 Basophils/100 WBC (Bld) 1.0 % 0-1 [facility] Bilirubin [Mass/Vol] 0.60 mg/dL 0.20-1.[address] [facility] Comment on above: For patients on eltr ombopag therapy, use of Dimension [place] TBIL is not recommended. Chloride [Moles/Vol] 109 mmol/L 98-[address] [facility] Eosinophils/100 WBC (Bld) 2.0 % 0-5 [facility] Glucose [Mass/Vol] 80 mg/dL 74-106 [facility] Neutrophils (Bld) [#/Vol] 2.0 10*3/uL 2.0-7.7 [facility] Neutrophils/100 WBC (Bld) 49.1 % 47-70 [facility] Potassium [Moles/Vol] 4.1 mmol/L 3.5-5.1 [facility] Protein [Mass/Vol] 6.3 g/dL 6.4-8.2 [facility] Sodium [Moles/Vol] 140 mmol/L 136-145 [facility] WBC (Bld) [#/Vol] 4.1 10*3/uL 4.4-11.0 [facility] Blood erythrocytes count (nu mber/volume)Ordered By: Reji Reyna on 07-01-2022 RBC (Bld) [#/Vol] 3.07 10*6/uL 4.2-5.4 [facility] Blood hemoglobin measurement (mass/volume)Ordered By: Reji Reyna on 07-01-2022 Hemoglobin (Bld) [Mass/Vol] 10.9 g/dL 12.0-15.0 [facility] Blood lymphocytes/100 leukoc ytesOrdered By: Reji Reyna on 07-01-2022 Lymphocytes/100 WBC (Bld) 35.3 % 19-41 [facility] Blood monocytes/100 leukocyt esOrdered By: Reji Reyna on 07-01-2022 Monocytes/100 WBC (Bld) 12.1 % 0-10 [facility] Blood platelet mean volumeOr dered By: Reji Reyna on 07-01-2022 Platelet mean volume (Bld) [Entitic vol] 10.1 fL 6.2-12.0 [facility] Determination of erythrocyte mean corpuscular volume (MCV)Ordered By: Reji Reyna on 07-01-2022 MCV (RBC) [Entitic vol] 103.9 fL 81-99 [facility] Hematocrit Auto (Bld) [Volum e fraction]Ordered By: Reji Reyna on 07-01-2022 Hematocrit (Bld) [Volume fraction] 31.9 % 37-47 [facility] Laboratory - Chemistry and C hemistry - challengeOrdered By: Reji Reyna on 07-01-2022 ALP [Catalytic activity/Vol] 93 U/L 45-117 [facility] ALT [Catalytic activity/Vol] 23 U/L 13-56 [facility] CO2 [Moles/Vol] 26.0 mmol/L 21.0-32.0 [facility] Globulin (S) [Mass/Vol] 3.5 g/dL 2.2-4.2 [facility] Urea nitrogen/Creatinine [Mass ratio] 16.4 mg/mg 10-20 [facility] Laboratory - Hematology and Cell countsOrdered By: Reji Reyna on 07-01-2022 Erythrocyte distribution width (RBC) [Entitic vol] 53.4 fL 35.1-43.9 [facility] Erythrocyte distribution width (RBC) [Ratio] 13.9 % 11.6-14.6 [facility] Immature granulocytes/100 WBC (Bld) 0.500 % 0.0-0.9 [facility] Comment on above: IG% - Immature Granu locytes (promyelocytes, myelocytes and metamyelocytes) > 1% indicates that a LEFT SHIFT is Present. MCH (RBC) [Entitic mass] 35.5 pg 27.0-32.0 [facility] Nucleated RBC/100 WBC (Bld) [Ratio] 0 % 0-5 [facility] MCHC Auto (RBC) [Mass/Vol]Or dered By: Reji Reyna on 07-01-2022 MCHC (RBC) [Mass/Vol] 34.2 g/dL 32-36 [facility] No Panel InformationOrdered By: Reji Reyna on 07-01-2022 Estimated GFR (MDRD) Amer 120 mL/min >60 [facility] Comment on above: GFR Calc Estimated GFR (MDRD) Non-Af Amer 99 mL/min >60 [facility] Comment on above: Non- GFR Calc Platelets bldOrdered By: Fredy Reyna on 07-01-2022 Platelets (Bld) [#/Vol] 104 10*3/uL 150-450 [facility] Serum or plasma albumin yonatan urement (mass/volume)Ordered By: Reji Reyna on 07-01-2022 Albumin [Mass/Vol] 2.8 g/dL 3.2-5.0 [facility] Serum or plasma albumin/glob ulin mass ratioOrdered By: Reji Reyna on 07-01-2022 Albumin/Globulin [Mass ratio] 0.8 {ratio} 0.9-2.4 [facility] Serum or plasma calcium yonatan urement (mass/volume)Ordered By: Reji Reyna on 07-01-2022 Calcium [Mass/Vol] 9.3 mg/dL 8.5-10.1 [facility] Serum or plasma creatinine m easurement (mass/volume)Ordered By: Reji Reyna on 07-01-2022 Creatinine [Mass/Vol] 0.61 mg/dL 0.55-1.02 [facility] Comment on above: The validity of the calculated GFR & GFRAA in patients over 70 years has not been determined. Clinical correlation is essential. Serum or plasma urea nitroge n measurement (mass/volume)Ordered By: Reji Reyna on 07-01-2022 Urea nitrogen [Mass/Vol] 10 mg/dL 7-18 [facility] Thin prep Papanicolaou smear with manual screeningOrdered By: Reji Reyna on 07-01-2022 Thin prep Papanicolaou smear with manual screening 28 U/L 15-37 [facility] Thin prep Papanicolaou smear with manual screening 5 5-15 [facility] XR RIBS 2V AP/OBL RIGHTon [facility] Absolute lymphocyte countOrd ered By: Reji Reyna on 06-03-2022 Lymphocytes Auto (Unsp spec) [#/Vol] 1.54 10*3/uL 0.83-4.51 [facility] Basophil percentageOrdered B y: Reji Reyna on 06-03-2022 Basophils/100 WBC (Bld) 0.5 % 0-1 [facility] Bilirubin [Mass/Vol] 0.60 mg/dL 0.20-1.[address] [facility] Comment on above: For patients on eltr ombopag therapy, use of Dimension [place] TBIL is not recommended. Chloride [Moles/Vol] 108 mmol/L 98-[address] [facility] Eosinophils/100 WBC (Bld) 2.4 % 0-5 [facility] Glucose [Mass/Vol] 86 mg/dL 74-106 [facility] Neutrophils (Bld) [#/Vol] 3.2 10*3/uL 2.0-7.7 [facility] Neutrophils/100 WBC (Bld) 58.6 % 47-70 [facility] Potassium [Moles/Vol] 4.2 mmol/L 3.5-5.1 [facility] Protein [Mass/Vol] 7.2 g/dL 6.4-8.2 [facility] Sodium [Moles/Vol] 141 mmol/L 136-145 [facility] WBC (Bld) [#/Vol] 5.5 10*3/uL 4.4-11.0 [facility] Blood erythrocytes count (nu mber/volume)Ordered By: Reji Reyna on 06-03-2022 RBC (Bld) [#/Vol] 3.73 10*6/uL 4.2-5.4 [facility] Blood hemoglobin measurement (mass/volume)Ordered By: Reji Reyna on 06-03-2022 Hemoglobin (Bld) [Mass/Vol] 13.1 g/dL 12.0-15.0 [facility] Blood lymphocytes/100 leukoc ytesOrdered By: Reji Reyna on 06-03-2022 Lymphocytes/100 WBC (Bld) 27.8 % 19-41 [facility] Blood manual differential co mment interpretation (narrative result)Ordered By: Reji Reyna on 06-03-2022 Manual differential comment [place] (Bld) [Interp] SCANNED [facility] Blood monocytes/100 leukocyt esOrdered By: Reji Reyna on 06-03-2022 Monocytes/100 WBC (Bld) 10.3 % 0-10 [facility] Blood platelet mean volumeOr dered By: Reji Reyna on 06-03-2022 Platelet mean volume (Bld) [Entitic vol] 9.9 fL 6.2-12.0 [facility] Determination of erythrocyte mean corpuscular volume (MCV)Ordered By: Reji Reyna on 06-03-2022 MCV (RBC) [Entitic vol] 102.7 fL 81-99 [facility] Hematocrit Auto (Bld) [Volum e fraction]Ordered By: Reji Reyna on 06-03-2022 Hematocrit (Bld) [Volume fraction] 38.3 % 37-47 [facility] Laboratory - Chemistry and C hemistry - challengeOrdered By: Reji Reyna on 06-03-2022 ALP [Catalytic activity/Vol] 98 U/L 45-117 [facility] ALT [Catalytic activity/Vol] 33 U/L 13-56 [facility] CO2 [Moles/Vol] 26.0 mmol/L 21.0-32.0 [facility] Globulin (S) [Mass/Vol] 4.2 g/dL 2.2-4.2 [facility] Urea nitrogen/Creatinine [Mass ratio] 28.5 mg/mg 10-20 [facility] Laboratory - Hematology and Cell countsOrdered By: Reji Reyna on 06-03-2022 Anisocytosis Ql (Bld) 1+ [facility] Erythrocyte distribution width (RBC) [Entitic vol] 68.7 fL 35.1-43.9 [facility] Erythrocyte distribution width (RBC) [Ratio] 18.0 % 11.6-14.6 [facility] Immature granulocytes/100 WBC (Bld) 0.400 % 0.0-0.9 [facility] Comment on above: IG% - Immature Granu locytes (promyelocytes, myelocytes and metamyelocytes) > 1% indicates that a LEFT SHIFT is Present. MCH (RBC) [Entitic mass] 35.1 pg 27.0-32.0 [facility] Nucleated RBC/100 WBC (Bld) [Ratio] 0 % 0-5 [facility] MCHC Auto (RBC) [Mass/Vol]Or dered By: Reji Reyna on 06-03-2022 MCHC (RBC) [Mass/Vol] 34.2 g/dL 32-36 [facility] No Panel InformationOrdered By: Reji Reyna on 06-03-2022 Estimated GFR (MDRD) Amer 123 mL/min >60 [facility] Comment on above: GFR Calc Estimated GFR (MDRD) Non-Af Amer 101 mL/min >60 [facility] Comment on above: Non- GFR Calc Platelets bldOrdered By: Fredy Reyna on 06-03-2022 Platelets (Bld) [#/Vol] 113 10*3/uL 150-450 [facility] Serum or plasma albumin yonatan urement (mass/volume)Ordered By: Reji Reyna on 06-03-2022 Albumin [Mass/Vol] 3.0 g/dL 3.2-5.0 [facility] Serum or plasma albumin/glob ulin mass ratioOrdered By: Reji Reyna on 06-03-2022 Albumin/Globulin [Mass ratio] 0.7 {ratio} 0.9-2.4 [facility] Serum or plasma calcium yonatan urement (mass/volume)Ordered By: Reji Reyna on 06-03-2022 Calcium [Mass/Vol] 9.5 mg/dL 8.5-10.1 [facility] Serum or plasma creatinine m easurement (mass/volume)Ordered By: Reji Reyna on 06-03-2022 Creatinine [Mass/Vol] 0.60 mg/dL 0.55-1.02 [facility] Comment on above: The validity of the calculated GFR & GFRAA in patients over 70 years has not been determined. Clinical correlation is essential. Serum or plasma urea nitroge n measurement (mass/volume)Ordered By: Reji Reyna on 06-03-2022 Urea nitrogen [Mass/Vol] 17 mg/dL 7-18 [facility] Thin prep Papanicolaou smear with manual screeningOrdered By: Reji Reyna on 06-03-2022 Thin prep Papanicolaou smear with manual screening 33 U/L 15-37 [facility] Thin prep Papanicolaou smear with manual screening 7 5-15 [facility] Absolute lymphocyte countOrd ered By: Alejo Salcido on 05-06-2022 Lymphocytes Auto (Unsp spec) [#/Vol] 1.42 10*3/uL 0.83-4.51 [facility] Basophil percentageOrdered B y: Alejo Salcido on 05-06-2022 Basophils/100 WBC (Bld) 0.6 % 0-1 [facility] Bilirubin [Mass/Vol] 0.50 mg/dL 0.20-1.[address] [facility] Comment on above: For patients on eltr ombopag therapy, use of Dimension [place] TBIL is not recommended. Chloride [Moles/Vol] 110 mmol/L 98-[address] [facility] Eosinophils/100 WBC (Bld) 2.1 % 0-5 [facility] Glucose [Mass/Vol] 84 mg/dL 74-106 [facility] Neutrophils (Bld) [#/Vol] 2.6 10*3/uL 2.0-7.7 [facility] Neutrophils/100 WBC (Bld) 53.7 % 47-70 [facility] Potassium [Moles/Vol] 4.1 mmol/L 3.5-5.1 [facility] Protein [Mass/Vol] 6.9 g/dL 6.4-8.2 [facility] Sodium [Moles/Vol] 142 mmol/L 136-145 [facility] WBC (Bld) [#/Vol] 4.8 10*3/uL 4.4-11.0 [facility] Blood erythrocytes count (nu mber/volume)Ordered By: Alejo Salcido on 05-06-2022 RBC (Bld) [#/Vol] 3.47 10*6/uL 4.2-5.4 [facility] Blood hemoglobin measurement (mass/volume)Ordered By: Alejo Salcido on 05-06-2022 Hemoglobin (Bld) [Mass/Vol] 11.1 g/dL 12.0-15.0 [facility] Blood lymphocytes/100 leukoc ytesOrdered By: Alejo Salcido on 05-06-2022 Lymphocytes/100 WBC (Bld) 29.8 % 19-41 [facility] Blood monocytes/100 leukocyt esOrdered By: Alejo Salcido on 05-06-2022 Monocytes/100 WBC (Bld) 13.4 % 0-10 [facility] Blood platelet mean volumeOr dered By: Alejo Salcido on 05-06-2022 Platelet mean volume (Bld) [Entitic vol] 9.4 fL 6.2-12.0 [facility] Determination of erythrocyte mean corpuscular volume (MCV)Ordered By: Alejo Salcido on 05-06-2022 MCV (RBC) [Entitic vol] 98.3 fL 81-99 [facility] Hematocrit Auto (Bld) [Volum e fraction]Ordered By: Alejo Salcido on 05-06-2022 Hematocrit (Bld) [Volume fraction] 34.1 % 37-47 [facility] Laboratory - Chemistry and C hemistry - challengeOrdered By: Alejo Salcido on 05-06-2022 ALP [Catalytic activity/Vol] 117 U/L 45-117 [facility] ALT [Catalytic activity/Vol] 21 U/L 13-56 [facility] CO2 [Moles/Vol] 26.0 mmol/L 21.0-32.0 [facility] Globulin (S) [Mass/Vol] 4.3 g/dL 2.2-4.2 [facility] Urea nitrogen/Creatinine [Mass ratio] 15.9 mg/mg 10-20 [facility] Laboratory - Hematology and Cell countsOrdered By: Alejo Salcido on 05-06-2022 Anisocytosis Ql (Bld) 1+ [facility] Erythrocyte distribution width (RBC) [Entitic vol] 81.2 fL 35.1-43.9 [facility] Erythrocyte distribution width (RBC) [Ratio] 23.4 % 11.6-14.6 [facility] Immature granulocytes/100 WBC (Bld) 0.400 % 0.0-0.9 [facility] Comment on above: IG% - Immature Granu locytes (promyelocytes, myelocytes and metamyelocytes) > 1% indicates that a LEFT SHIFT is Present. MCH (RBC) [Entitic mass] 32.0 pg 27.0-32.0 [facility] Nucleated RBC/100 WBC (Bld) [Ratio] 0 % 0-5 [facility] MCHC Auto (RBC) [Mass/Vol]Or dered By: Alejo Salcido on 05-06-2022 MCHC (RBC) [Mass/Vol] 32.6 g/dL 32-36 [facility] No Panel InformationOrdered By: Alejo Salcido on 05-06-2022 Estimated GFR (MDRD) Amer 130 mL/min >60 [facility] Comment on above: GFR Calc Estimated GFR (MDRD) Non-Af Amer 108 mL/min >60 [facility] Comment on above: Non- GFR Calc Thyroid Stimulating Hormone (TSH) 1.29 uIU/mL 0.358-3.74 [facility] Platelets bldOrdered By: Levi Salcido on 05-06-2022 Platelets (Bld) [#/Vol] 110 10*3/uL 150-450 [facility] Serum or plasma albumin yonatan urement (mass/volume)Ordered By: Alejo Salcido on 05-06-2022 Albumin [Mass/Vol] 2.6 g/dL 3.2-5.0 [facility] Serum or plasma albumin/glob ulin mass ratioOrdered By: Alejo Salcido on 05-06-2022 Albumin/Globulin [Mass ratio] 0.6 {ratio} 0.9-2.4 [facility] Serum or plasma calcium yonatan urement (mass/volume)Ordered By: Alejo Salcido on 05-06-2022 Calcium [Mass/Vol] 9.1 mg/dL 8.5-10.1 [facility] Serum or plasma creatinine m easurement (mass/volume)Ordered By: Alejo Salcido on 05-06-2022 Creatinine [Mass/Vol] 0.57 mg/dL 0.55-1.02 [facility] Comment on above: The validity of the calculated GFR & GFRAA in patients over 70 years has not been determined. Clinical correlation is essential. Serum or plasma urea nitroge n measurement (mass/volume)Ordered By: Alejo Salcido on 05-06-2022 Urea nitrogen [Mass/Vol] 9 mg/dL 7-18 [facility] Thin prep Papanicolaou smear with manual screeningOrdered By: Alejo Salcido on 05-06-2022 Thin prep Papanicolaou smear with manual screening 26 U/L 15-37 [facility] Thin prep Papanicolaou smear with manual screening 6 5-15 [facility] Absolute lymphocyte countOrd ered By: Reji Reyna on 04-01-2022 Lymphocytes Auto (Unsp spec) [#/Vol] 1.69 10*3/uL 0.83-4.51 [facility] Basophil percentageOrdered B y: Reji Reyna on 04-01-2022 Basophils/100 WBC (Bld) 0.6 % 0-1 [facility] Bilirubin [Mass/Vol] 0.50 mg/dL 0.20-1.[address] [facility] Comment on above: For patients on eltr ombopag therapy, use of Dimension [place] TBIL is not recommended. Chloride [Moles/Vol] 110 mmol/L 98-[address] [facility] Eosinophils/100 WBC (Bld) 1.8 % 0-5 [facility] Glucose [Mass/Vol] 81 mg/dL 74-106 [facility] Neutrophils (Bld) [#/Vol] 2.7 10*3/uL 2.0-7.7 [facility] Neutrophils/100 WBC (Bld) 53.0 % 47-70 [facility] Potassium [Moles/Vol] 4.0 mmol/L 3.5-5.1 [facility] Protein [Mass/Vol] 6.9 g/dL 6.4-8.2 [facility] Sodium [Moles/Vol] 145 mmol/L 136-145 [facility] WBC (Bld) [#/Vol] 5.1 10*3/uL 4.4-11.0 [facility] Blood erythrocytes count (nu mber/volume)Ordered By: Reji Reyna on 04-01-2022 RBC (Bld) [#/Vol] 3.56 10*6/uL 4.2-5.4 [facility] Blood hemoglobin measurement (mass/volume)Ordered By: Reji Reyna on 04-01-2022 Hemoglobin (Bld) [Mass/Vol] 10.5 g/dL 12.0-15.0 [facility] Blood lymphocytes/100 leukoc ytesOrdered By: Reji Reyna on 04-01-2022 Lymphocytes/100 WBC (Bld) 33.2 % 19-41 [facility] Blood monocytes/100 leukocyt esOrdered By: Reji Reyna on 04-01-2022 Monocytes/100 WBC (Bld) 11.2 % 0-10 [facility] Blood platelet mean volumeOr dered By: Reji Reyna on 04-01-2022 Platelet mean volume (Bld) [Entitic vol] 10.3 fL 6.2-12.0 [facility] Determination of erythrocyte mean corpuscular volume (MCV)Ordered By: Reji Reyna on 04-01-2022 MCV (RBC) [Entitic vol] 92.7 fL 81-99 [facility] Hematocrit Auto (Bld) [Volum e fraction]Ordered By: Reji Reyna on 04-01-2022 Hematocrit (Bld) [Volume fraction] 33.0 % 37-47 [facility] Laboratory - Chemistry and C hemistry - challengeOrdered By: [facility] on 04-01-2022 ALP [Catalytic activity/Vol] 75 U/L 45-117 [facility] ALT [Catalytic activity/Vol] 21 U/L 13-56 [facility] CO2 [Moles/Vol] 25.0 mmol/L 21.0-32.0 [facility] Globulin (S) [Mass/Vol] 4.3 g/dL 2.2-4.2 [facility] Urea nitrogen/Creatinine [Mass ratio] 18.4 mg/mg 10-20 [facility] Laboratory - Hematology and Cell countsOrdered By: Reji Reyna on 04-01-2022 Anisocytosis Ql (Bld) RARE [facility] Erythrocyte distribution width (RBC) [Entitic vol] 73.0 fL 35.1-43.9 [facility] Erythrocyte distribution width (RBC) [Ratio] 22.1 % 11.6-14.6 [facility] Immature granulocytes/100 WBC (Bld) 0.200 % 0.0-0.9 [facility] Comment on above: IG% - Immature Granu locytes (promyelocytes, myelocytes and metamyelocytes) > 1% indicates that a LEFT SHIFT is Present. MCH (RBC) [Entitic mass] 29.5 pg 27.0-32.0 [facility] Nucleated RBC/100 WBC (Bld) [Ratio] 0 % 0-5 [facility] MCHC Auto (RBC) [Mass/Vol]Or dered By: Reji Reyna on 04-01-2022 MCHC (RBC) [Mass/Vol] 31.8 g/dL 32-36 [facility] No Panel InformationOrdered By: Reji Reyna on 04-01-2022 Estimated GFR (MDRD) Amer 101 mL/min >60 [facility] Comment on above: GFR Calc Estimated GFR (MDRD) Non-Af Amer 83 mL/min >60 [facility] Comment on above: Non- GFR Calc Platelets bldOrdered By: Fredy Reyna on 04-01-2022 Platelets (Bld) [#/Vol] 127 10*3/uL 150-450 [facility] Serum or plasma albumin yonatan urement (mass/volume)Ordered By: Reji Reyna on 04-01-2022 Albumin [Mass/Vol] 2.6 g/dL 3.2-5.0 [facility] Serum or plasma albumin/glob ulin mass ratioOrdered By: Reji Reyna on 04-01-2022 Albumin/Globulin [Mass ratio] 0.6 {ratio} 0.9-2.4 [facility] Serum or plasma calcium yonatan urement (mass/volume)Ordered By: Reji Reyna on 04-01-2022 Calcium [Mass/Vol] 9.1 mg/dL 8.5-10.1 [facility] Serum or plasma creatinine m easurement (mass/volume)Ordered By: Reji Reyna on 04-01-2022 Creatinine [Mass/Vol] 0.71 mg/dL 0.55-1.02 [facility] Comment on above: The validity of the calculated GFR & GFRAA in patients over 70 years has not been determined. Clinical correlation is essential. Serum or plasma urea nitroge n measurement (mass/volume)Ordered By: Reji Reyna on 04-01-2022 Urea nitrogen [Mass/Vol] 13 mg/dL 7-18 [facility] Thin prep Papanicolaou smear with manual screeningOrdered By: Reji Reyna on 04-01-2022 Thin prep Papanicolaou smear with manual screening 24 U/L 15-37 [facility] Thin prep Papanicolaou smear with manual screening 10 5-15 [facility] CBC W Ordered Manual Differe ntial panel (Bld)on 03-22-2022 Basophils (Bld) [#/Vol] 0.05 10*3/uL <0.11 k/uL [facility] Basophils/100 WBC (Bld) 0.8 % [facility] Eosinophils (Bld) [#/Vol] 0.09 10*3/uL <0.46 k/uL [facility] Eosinophils/100 WBC (Bld) 1.4 % [facility] Erythrocyte distribution width (RBC) [Ratio] 20.3 % High 11.5 - 15.0 % [facility] Hematocrit (Bld) [Volume fraction] 33.9 % Low 36.0 - 46.0 % [facility] Hemoglobin (Bld) [Mass/Vol] 10.8 g/dL Low 11.5 - 15.5 g/dL [facility] Immature granulocytes (Bld) [#/Vol] <0.10 k/uL [facility] Immature granulocytes/100 WBC (Bld) 0.3 % [facility] Lymphocytes (Bld) [#/Vol] 1.43 10*3/uL 1.00 - 4.00 k/uL [facility] Lymphocytes/100 WBC (Bld) 22.8 % [facility] MCH (RBC) [Entitic mass] 27.6 pg 26.0 - 34.0 pg [facility] MCHC (RBC) [Mass/Vol] 31.9 g/dL 30.5 - 36.0 g/dL [facility] MCV (RBC) [Entitic vol] 86.7 fL 80.0 - 100.0 fL [facility] Monocytes (Bld) [#/Vol] 0.85 10*3/uL <0.87 k/uL [facility] Monocytes/100 WBC (Bld) 13.6 % [facility] Neutrophils (Bld) [#/Vol] 3.83 10*3/uL 1.45 - 7.50 k/uL [facility] Neutrophils/100 WBC (Bld) 61.1 % [facility] Platelet mean volume (Bld) [Entitic vol] 9.7 fL 9.0 - 12.7 [facility]L [facility] Platelets (Bld) [#/Vol] 136 10*3/uL Low 150 - 400 k/uL [facility] RBC (Bld) [#/Vol] 3.91 10*6/uL 3.90 - 5.2 0 m/uL [facility] WBC (Bld) [#/Vol] 6.27 10*3/uL 3.70 - 11.00 k/uL [facility] Transferrin receptor.soluble [Mass/Vol]on 03-15-2022 Transferrin receptor.soluble [Moles/Vol] 8.7 mg/L High 1.9 - 4.4 mg/L [facility] Comprehensive metabolic 2000 panelon 03-14-2022 Albumin [Mass/Vol] 3.6 g/dL Low 3.9 - 4.9 g/dL [facility] ALP [Catalytic activity/Vol] 100 U/L 34 - 123 U/L [facility] ALT [Catalytic activity/Vol] 14 U/L 7 - 38 U/L [facility] Anion gap [Moles/Vol] 9 mmol/L 9 - 18 mmol/L [facility] AST [Catalytic activity/Vol] 27 U/L 13 - 35 U/L [facility] Bilirubin [Mass/Vol] 0.6 mg/dL 0.2 - 1 .3 mg/dL [facility] Calcium [Mass/Vol] 9.4 mg/dL 8.5 - 10. 2 mg/dL [facility] Chloride [Moles/Vol] 104 mmol/L 97 - 10 5 mmol/L [facility] CO2 [Moles/Vol] 24 mmol/L 22 - 30 mmol/L [facility] Creatinine [Mass/Vol] 0.63 mg/dL 0.58 - 0.96 mg/dL [facility] Estimated Glomerular Filtration Rate 87 mL/min/1.73m >=60 mL/min/1.73 m [facility] Glucose [Mass/Vol] 120 mg/dL High 74 - 99 mg/dL [facility] Potassium [Moles/Vol] 3.9 mmol/L 3.7 - 5.1 mmol/L [facility] Protein [Mass/Vol] 7.3 g/dL 6.3 - 8.0 g/dL [facility] Sodium [Moles/Vol] 137 mmol/L 136 - 144 mmol/L [facility] Urea nitrogen [Mass/Vol] 14 mg/dL 7 - 21 mg/dL [facility] Iron and Iron binding capaci ty panelon 03-14-2022 Iron [Mass/Vol] 249 ug/dL High 41 - 186 ug/dL [facility] Iron binding capacity [Mass/Vol] 383 ug/dL 232 - 386 ug/dL [facility] Iron/TIBC [Molar ratio] 65.0 % High 15.0 - 57.0 % [facility] Laboratory - Chemistry and C hemistry - challengeon 03-14-2022 Ferritin [Mass/Vol] 45.9 ng/mL 14.7 - 205.1 ng/mL [facility] LDH [Catalytic activity/Vol] 194 U/L 135 - 214 U/L [facility] - Hematology and Cell countson 03-14-2022 Reticulocytes (Bld) [#/Vol] 0.50196 10*3/uL 0.018 - 0.100 M/uL [facility] Reticulocytes (Bld) [#/Vol]o n 03-14-2022 Reticulocytes/100 RBC (Bld) 1.3 % 0.4 - 2.0 % [facility] Absolute lymphocyte countOrd ered By: Mitchell Living on 03-07-2022 Lymphocytes Auto (Unsp spec) [#/Vol] 1.39 10*3/uL 0.83-4.51 [facility] Basophil percentageOrdered B y: Isle Living on 03-07-2022 Basophils/100 WBC (Bld) 1.0 % 0-1 [facility] Eosinophils/100 WBC (Bld) 2.0 % 0-5 [facility] Neutrophils (Bld) [#/Vol] 2.0 10*3/uL 2.0-7.7 [facility] Neutrophils/100 WBC (Bld) 48.5 % 47-70 [facility] WBC (Bld) [#/Vol] 4.1 10*3/uL 4.4-11.0 [facility] Blood erythrocytes count (nu mber/volume)Ordered By: Isle Living on 03-07-2022 RBC (Bld) [#/Vol] 3.93 10*6/uL 4.2-5.4 [facility] Blood hemoglobin measurement (mass/volume)Ordered By: Mitchell Living on 03-07-2022 Hemoglobin (Bld) [Mass/Vol] 10.8 g/dL 12.0-15.0 [facility] Blood lymphocytes/100 leukoc ytesOrdered By: Mitchell Living on 12-22-2022 Lymphocytes/100 WBC (Bld) 34.1 % 19-41 [facility] Blood monocytes/100 leukocyt esOrdered By: Isle Living on 03-07-2022 Monocytes/100 WBC (Bld) 14.2 % 0-10 [facility] Blood platelet mean volumeOr dered By: Isle Living on 03-07-2022 Platelet mean volume (Bld) [Entitic vol] 9.7 fL 6.2-12.0 [facility] Determination of erythrocyte mean corpuscular volume (MCV)Ordered By: Isle Living on 03-07-2022 MCV (RBC) [Entitic vol] 84.5 fL 81-99 [facility] Hematocrit Auto (Bld) [Volum e fraction]Ordered By: [facility] on 03-07-2022 Hematocrit (Bld) [Volume fraction] 33.2 % 37-47 [facility] Laboratory - Hematology and Cell countsOrdered By: [facility] on 03-07-2022 Erythrocyte distribution width (RBC) [Entitic vol] 50.5 fL 35.1-43.9 [facility] Erythrocyte distribution width (RBC) [Ratio] 16.3 % 11.6-14.6 [facility] Immature granulocytes/100 WBC (Bld) 0.200 % 0.0-0.9 [facility] Comment on above: IG% - Immature Granu locytes (promyelocytes, myelocytes and metamyelocytes) > 1% indicates that a LEFT SHIFT is Present. MCH (RBC) [Entitic mass] 27.5 pg 27.0-32.0 [facility] Nucleated RBC/100 WBC (Bld) [Ratio] 0 % 0-5 [facility] MCHC Auto (RBC) [Mass/Vol]Or dered By: Isle Living on 03-07-2022 MCHC (RBC) [Mass/Vol] 32.5 g/dL 32-36 [facility] Comment on above: Delta: 30.2 on 03/04044 Platelets bldOrdered By: Cesar cruz Living on 03-07-2022 Platelets (Bld) [#/Vol] 155 10*3/uL 150-450 [facility] Absolute lymphocyte countOrd ered By: Alejo Salcido on 03-04-2022 Lymphocytes Auto (Unsp spec) [#/Vol] 1.30 10*3/uL 0.83-4.51 [facility] Basophil percentageOrdered B y: Alejo Salcido on 03-04-2022 Basophils/100 WBC (Bld) 0.5 % 0-1 [facility] Bilirubin [Mass/Vol] 0.50 mg/dL 0.20-1.[address] [facility] Comment on above: For patients on eltr ombopag therapy, use of Dimension [place] TBIL is not recommended. Chloride [Moles/Vol] 113 mmol/L 98-[address] [facility] Eosinophils/100 WBC (Bld) 2.8 % 0-5 [facility] Glucose [Mass/Vol] 90 mg/dL 74-106 [facility] Neutrophils (Bld) [#/Vol] 2.1 10*3/uL 2.0-7.7 [facility] Neutrophils/100 WBC (Bld) 51.4 % 47-70 [facility] Potassium [Moles/Vol] 4.4 mmol/L 3.5-5.1 [facility] Protein [Mass/Vol] 7.2 g/dL 6.4-8.2 [facility] Sodium [Moles/Vol] 143 mmol/L 136-145 [facility] WBC (Bld) [#/Vol] 4.0 10*3/uL 4.4-11.0 [facility] Blood erythrocytes count (nu mber/volume)Ordered By: Alejo Salcido on 03-04-2022 RBC (Bld) [#/Vol] 2.94 10*6/uL 4.2-5.4 [facility] Blood hemoglobin measurement (mass/volume)Ordered By: Alejo Salcido on 03-04-2022 Hemoglobin (Bld) [Mass/Vol] 7.7 g/dL 12.0-15.0 [facility] Blood lymphocytes/100 leukoc ytesOrdered By: Alejo Salcido on 03-04-2022 Lymphocytes/100 WBC (Bld) 32.5 % 19-41 [facility] Blood monocytes/100 leukocyt esOrdered By: Alejo Salcido on 03-04-2022 Monocytes/100 WBC (Bld) 12.8 % 0-10 [facility] Blood platelet mean volumeOr dered By: Alejo Salcido on 03-04-2022 Platelet mean volume (Bld) [Entitic vol] 11.0 fL 6.2-12.0 [facility] Determination of erythrocyte mean corpuscular volume (MCV)Ordered By: Alejo Salcido on 03-04-2022 MCV (RBC) [Entitic vol] 86.7 fL 81-99 [facility] Hematocrit Auto (Bld) [Volum e fraction]Ordered By: Alejo Salcido on 03-04-2022 Hematocrit (Bld) [Volume fraction] 25.5 % 37-47 [facility] Laboratory - Chemistry and C hemistry - challengeOrdered By: Alejo Salcido on 03-04-2022 ALP [Catalytic activity/Vol] 87 U/L 45-117 [facility] ALT [Catalytic activity/Vol] 19 U/L 13-56 [facility] CO2 [Moles/Vol] 25.0 mmol/L 21.0-32.0 [facility] Globulin (S) [Mass/Vol] 4.5 g/dL 2.2-4.2 [facility] Urea nitrogen/Creatinine [Mass ratio] 18.4 mg/mg 10-20 [facility] Laboratory - Hematology and Cell countsOrdered By: Alejo Salcido on 03-04-2022 Erythrocyte distribution width (RBC) [Entitic vol] 53.1 fL 35.1-43.9 [facility] Erythrocyte distribution width (RBC) [Ratio] 17.1 % 11.6-14.6 [facility] Immature granulocytes/100 WBC (Bld) 0.000 % 0.0-0.9 [facility] Comment on above: IG% - Immature Granu locytes (promyelocytes, myelocytes and metamyelocytes) > 1% indicates that a LEFT SHIFT is Present. MCH (RBC) [Entitic mass] 26.2 pg 27.0-32.0 [facility] Nucleated RBC/100 WBC (Bld) [Ratio] 0 % 0-5 [facility] MCHC Auto (RBC) [Mass/Vol]Or dered By: Alejo Salcido on 03-04-2022 MCHC (RBC) [Mass/Vol] 30.2 g/dL 32-36 [facility] No Panel InformationOrdered By: Alejo Salcido on 03-04-2022 Estimated GFR (MDRD) Amer 101 mL/min >60 [facility] Comment on above: GFR Calc Estimated GFR (MDRD) Non-Af Amer 83 mL/min >60 [facility] Comment on above: Non- GFR Calc Platelets bldOrdered By: Levi Salcido on 03-04-2022 Platelets (Bld) [#/Vol] 163 10*3/uL 150-450 [facility] Serum or plasma albumin yonatan urement (mass/volume)Ordered By: Alejo Salcido on 03-04-2022 Albumin [Mass/Vol] 2.7 g/dL 3.2-5.0 [facility] Serum or plasma albumin/glob ulin mass ratioOrdered By: Alejo Salcido on 03-04-2022 Albumin/Globulin [Mass ratio] 0.6 {ratio} 0.9-2.4 [facility] Serum or plasma calcium yonatan urement (mass/volume)Ordered By: Aljeo Salcido on 03-04-2022 Calcium [Mass/Vol] 9.1 mg/dL 8.5-10.1 [facility] Serum or plasma creatinine m easurement (mass/volume)Ordered By: Alejo Salcido on 03-04-2022 Creatinine [Mass/Vol] 0.71 mg/dL 0.55-1.02 [facility] Comment on above: The validity of the calculated GFR & GFRAA in patients over 70 years has not been determined. Clinical correlation is essential. Serum or plasma urea nitroge n measurement (mass/volume)Ordered By: Alejo Salcido on 03-04-2022 Urea nitrogen [Mass/Vol] 13 mg/dL 7-18 [facility] Thin prep Papanicolaou smear with manual screeningOrdered By: Alejo Salcido on 03-04-2022 Thin prep Papanicolaou smear with manual screening 22 U/L 15-37 [facility] Thin prep Papanicolaou smear with manual screening 5 5-15 [facility] Culture, urineOrdered By: Angelito Reyna on 02-23-2022 Bacteria identified Cx Nom (U) Culture exhibits no growth. [facility] Bilirubin Test strip Ql (U)O rdered By: Reji Reyna on 02-21-2022 Bilirubin Ql (U) Negative Negative [facility] Ketones Test strip Ql (U)Ord ered By: Reji Reyna on 02-21-2022 Ketones Ql (U) 5 mg/dl Negative [facility] Nitrite Test strip Ql (U)Ord ered By: Reji Reyna on 02-21-2022 Nitrite Ql (U) Negative Negative [facility] Protein Test strip Ql (U)Ord ered By: Reji Reyna on 02-21-2022 Protein Ql (U) 30 mg/dl Negative [facility] Urine blood detectionOrdered By: Reji Reyna on 02-21-2022 RBC Ql (U) 250 /ul Negative [facility] Urine clarityOrdered By: Fredy Reyna on 02-21-2022 Clarity (U) Cloudy Clear [facility] Urine color determinationOrd ered By: Reji Reyna on 02-21-2022 Color (U) Starla Yellow [facility] Urine glucose detectionOrder ed By: Reji Reyna on 02-21-2022 Glucose Ql (U) Normal mg/dl Normal [facility] Urine leukocyte esterase det ection by dipstickOrdered By: Reji Reyna on 02-21-2022 Leukocyte esterase Test strip Ql (U) 25 /ul Negative [facility] Urine pHOrdered By: Deloris Reyna on 02-21-2022 pH (U) 6.0 [pH] 5.0 - 8.0 [facility] Urine specific gravity measu rementOrdered By: Reji Reyna on 02-21-2022 Specific gravity (U) [Rel density] 1.015 1.002-1.030 [facility] Urobilinogen Auto test strip Ql (U)Ordered By: Reji Reyna on 02-21-2022 Urobilinogen Ql (U) Normal mg/dl Normal [facility] Absolute lymphocyte countOrd ered By: Alejo Salcido on 02-04-2022 Lymphocytes Auto (Unsp spec) [#/Vol] 1.51 10*3/uL 0.83-4.51 [facility] Basophil percentageOrdered B y: Alejo Salcido on 02-04-2022 Basophils/100 WBC (Bld) 1.0 % 0-1 [facility] Bilirubin [Mass/Vol] 0.50 mg/dL 0.20-1.[address] [facility] Comment on above: For patients on eltr ombopag therapy, use of Dimension [place] TBIL is not recommended. Chloride [Moles/Vol] 111 mmol/L 98-[address] [facility] Eosinophils/100 WBC (Bld) 2.5 % 0-5 [facility] Glucose [Mass/Vol] 79 mg/dL 74-106 [facility] Neutrophils (Bld) [#/Vol] 2.9 10*3/uL 2.0-7.7 [facility] Neutrophils/100 WBC (Bld) 55.7 % 47-70 [facility] Potassium [Moles/Vol] 4.1 mmol/L 3.5-5.1 [facility] Protein [Mass/Vol] 7.2 g/dL 6.4-8.2 [facility] Sodium [Moles/Vol] 140 mmol/L 136-145 [facility] WBC (Bld) [#/Vol] 5.2 10*3/uL 4.4-11.0 [facility] Blood erythrocytes count (nu mber/volume)Ordered By: Alejo Salcido on 02-04-2022 RBC (Bld) [#/Vol] 3.06 10*6/uL 4.2-5.4 [facility] Blood hemoglobin measurement (mass/volume)Ordered By: Alejo Salcido on 02-04-2022 Hemoglobin (Bld) [Mass/Vol] 8.3 g/dL 12.0-15.0 [facility] Blood lymphocytes/100 leukoc ytesOrdered By: Alejo Salcido on 02-04-2022 Lymphocytes/100 WBC (Bld) 29.2 % 19-41 [facility] Blood monocytes/100 leukocyt esOrdered By: Alejo Salcido on 02-04-2022 Monocytes/100 WBC (Bld) 11.2 % 0-10 [facility] Blood platelet mean volumeOr dered By: Alejo Salcido on 02-04-2022 Platelet mean volume (Bld) [Entitic vol] 9.5 fL 6.2-12.0 [facility] Determination of erythrocyte mean corpuscular volume (MCV)Ordered By: Alejo Salcido on 02-04-2022 MCV (RBC) [Entitic vol] 87.3 fL 81-99 [facility] Hematocrit Auto (Bld) [Volum e fraction]Ordered By: Alejo Salcido on 02-04-2022 Hematocrit (Bld) [Volume fraction] 26.7 % 37-47 [facility] Laboratory - Chemistry and C hemistry - challengeOrdered By: Alejo Salcido on 02-04-2022 ALP [Catalytic activity/Vol] 87 U/L 45-117 [facility] ALT [Catalytic activity/Vol] 20 U/L 13-56 [facility] CO2 [Moles/Vol] 25.0 mmol/L 21.0-32.0 [facility] Globulin (S) [Mass/Vol] 4.5 g/dL 2.2-4.2 [facility] Urea nitrogen/Creatinine [Mass ratio] 20.9 mg/mg 10-20 [facility] Laboratory - Hematology and Cell countsOrdered By: Alejo Salcido on 02-04-2022 Erythrocyte distribution width (RBC) [Entitic vol] 54.0 fL 35.1-43.9 [facility] Erythrocyte distribution width (RBC) [Ratio] 17.1 % 11.6-14.6 [facility] Immature granulocytes/100 WBC (Bld) 0.400 % 0.0-0.9 [facility] Comment on above: IG% - Immature Granu locytes (promyelocytes, myelocytes and metamyelocytes) > 1% indicates that a LEFT SHIFT is Present. MCH (RBC) [Entitic mass] 27.1 pg 27.0-32.0 [facility] Nucleated RBC/100 WBC (Bld) [Ratio] 0 % 0-5 [facility] MCHC Auto (RBC) [Mass/Vol]Or dered By: Alejo Salcido on 02-04-2022 MCHC (RBC) [Mass/Vol] 31.1 g/dL 32-36 [facility] No Panel InformationOrdered By: Alejo Salcido on 02-04-2022 Estimated GFR (MDRD) Amer 107 mL/min >60 [facility] Comment on above: GFR Calc Estimated GFR (MDRD) Non-Af Amer 89 mL/min >60 [facility] Comment on above: Non- GFR Calc Platelets bldOrdered By: Levi Salcido on 02-04-2022 Platelets (Bld) [#/Vol] 155 10*3/uL 150-450 [facility] Serum or plasma albumin yonatan urement (mass/volume)Ordered By: Alejo Salcido on 02-04-2022 Albumin [Mass/Vol] 2.7 g/dL 3.2-5.0 [facility] Serum or plasma albumin/glob ulin mass ratioOrdered By: Alejo Salcido on 02-04-2022 Albumin/Globulin [Mass ratio] 0.6 {ratio} 0.9-2.4 [facility] Serum or plasma calcium yonatan urement (mass/volume)Ordered By: Alejo Salcido on 02-04-2022 Calcium [Mass/Vol] 8.9 mg/dL 8.5-10.1 [facility] Serum or plasma creatinine m easurement (mass/volume)Ordered By: Alejo Salcido on 02-04-2022 Creatinine [Mass/Vol] 0.67 mg/dL 0.55-1.02 [facility] Comment on above: The validity of the calculated GFR & GFRAA in patients over 70 years has not been determined. Clinical correlation is essential. Serum or plasma urea nitroge n measurement (mass/volume)Ordered By: Alejo Salcido on 02-04-2022 Urea nitrogen [Mass/Vol] 14 mg/dL 7-18 [facility] Thin prep Papanicolaou smear with manual screeningOrdered By: Alejo Salcido on 02-04-2022 Thin prep Papanicolaou smear with manual screening 20 U/L 15-37 [facility] Thin prep Papanicolaou smear with manual screening 4 5-15 [facility] Absolute lymphocyte countOrd ered By: Alejo Salcido on 01-17-2022 Lymphocytes Auto (Unsp spec) [#/Vol] 1.45 10*3/uL 0.83-4.51 [facility] Basophil percentageOrdered B y: Alejo Salcido on 01-17-2022 Basophils/100 WBC (Bld) 0.8 % 0-1 [facility] Eosinophils/100 WBC (Bld) 1.9 % 0-5 [facility] Neutrophils (Bld) [#/Vol] 3.0 10*3/uL 2.0-7.7 [facility] Neutrophils/100 WBC (Bld) 56.3 % 47-70 [facility] WBC (Bld) [#/Vol] 5.3 10*3/uL 4.4-11.0 [facility] Blood erythrocytes count (nu mber/volume)Ordered By: Alejo Salcido on 01-17-2022 RBC (Bld) [#/Vol] 2.79 10*6/uL 4.2-5.4 [facility] Blood hemoglobin measurement (mass/volume)Ordered By: Alejo Salcido on 01-17-2022 Hemoglobin (Bld) [Mass/Vol] 8.0 g/dL 12.0-15.0 [facility] Blood lymphocytes/100 leukoc ytesOrdered By: Alejo Salcido on 01-17-2022 Lymphocytes/100 WBC (Bld) 27.4 % 19-41 [facility] Blood monocytes/100 leukocyt esOrdered By: Alejo Salcido on 01-17-2022 Monocytes/100 WBC (Bld) 13.4 % 0-10 [facility] Blood platelet mean volumeOr dered By: Alejo Salcido on 01-17-2022 Platelet mean volume (Bld) [Entitic vol] 9.9 fL 6.2-12.0 [facility] Determination of erythrocyte mean corpuscular volume (MCV)Ordered By: Alejo Salcido on 01-17-2022 MCV (RBC) [Entitic vol] 88.9 fL 81-99 [facility] Hematocrit Auto (Bld) [Volum e fraction]Ordered By: Alejo Salcido on 01-17-2022 Hematocrit (Bld) [Volume fraction] 24.8 % 37-47 [facility] Laboratory - Hematology and Cell countsOrdered By: Alejo Salcido on 01-17-2022 Erythrocyte distribution width (RBC) [Entitic vol] 58.2 fL 35.1-43.9 [facility] Erythrocyte distribution width (RBC) [Ratio] 18.2 % 11.6-14.6 [facility] Immature granulocytes/100 WBC (Bld) 0.200 % 0.0-0.9 [facility] Comment on above: IG% - Immature Granu locytes (promyelocytes, myelocytes and metamyelocytes) > 1% indicates that a LEFT SHIFT is Present. MCH (RBC) [Entitic mass] 28.7 pg 27.0-32.0 [facility] Nucleated RBC/100 WBC (Bld) [Ratio] 0 % 0-5 [facility] MCHC Auto (RBC) [Mass/Vol]Or dered By: Alejo Salcido on 01-17-2022 MCHC (RBC) [Mass/Vol] 32.3 g/dL 32-36 [facility] Platelets bldOrdered By: Levi Salcido on 01-17-2022 Platelets (Bld) [#/Vol] 169 10*3/uL 150-450 [facility] Absolute lymphocyte countOrd ered By: Alejo Salcido on 01-03-2022 Lymphocytes Auto (Unsp spec) [#/Vol] 1.25 10*3/uL 0.83-4.51 [facility] Basophil percentageOrdered B y: Alejo Salcido on 01-03-2022 Basophils/100 WBC (Bld) 0.5 % 0-1 [facility] Eosinophils/100 WBC (Bld) 2.1 % 0-5 [facility] Neutrophils (Bld) [#/Vol] 2.5 10*3/uL 2.0-7.7 [facility] Neutrophils/100 WBC (Bld) 57.2 % 47-70 [facility] WBC (Bld) [#/Vol] 4.4 10*3/uL 4.4-11.0 [facility] Blood erythrocytes count (nu mber/volume)Ordered By: Alejo Salcido on 01-03-2022 RBC (Bld) [#/Vol] 2.97 10*6/uL 4.2-5.4 [facility] Blood hemoglobin measurement (mass/volume)Ordered By: Alejo Salcido on 01-03-2022 Hemoglobin (Bld) [Mass/Vol] 8.3 g/dL 12.0-15.0 [facility] Blood lymphocytes/100 leukoc ytesOrdered By: Alejo Salcido on 01-03-2022 Lymphocytes/100 WBC (Bld) 28.6 % 19-41 [facility] Blood monocytes/100 leukocyt esOrdered By: Alejo Salcido on 01-03-2022 Monocytes/100 WBC (Bld) 11.4 % 0-10 [facility] Blood platelet mean volumeOr dered By: Alejo Salcido on 01-03-2022 Platelet mean volume (Bld) [Entitic vol] 10.0 fL 6.2-12.0 [facility] Determination of erythrocyte mean corpuscular volume (MCV)Ordered By: Alejo Salcido on 01-03-2022 MCV (RBC) [Entitic vol] 86.5 fL 81-99 [facility] Hematocrit Auto (Bld) [Volum e fraction]Ordered By: Alejo Salcido on 01-03-2022 Hematocrit (Bld) [Volume fraction] 25.7 % 37-47 [facility] Laboratory - Hematology and Cell countsOrdered By: Alejo Salcido on 01-03-2022 Erythrocyte distribution width (RBC) [Entitic vol] 59.0 fL 35.1-43.9 [facility] Erythrocyte distribution width (RBC) [Ratio] 18.8 % 11.6-14.6 [facility] Immature granulocytes/100 WBC (Bld) 0.200 % 0.0-0.9 [facility] Comment on above: IG% - Immature Granu locytes (promyelocytes, myelocytes and metamyelocytes) > 1% indicates that a LEFT SHIFT is Present. 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 #:[id number] estr (more content not included)... Normal [facility] UA DIP, URINE (POC)on 2021 BILIRUBIN UA (POCT) Negative Negative [facility] CLARITY UA (POCT) Clear [facility] COLOR UA (POCT) Yellow [facility] GLUCOSE UA (POCT) Negative Negative mg/dL [facility] HEMOGLOBIN/BLOOD UA (POCT) Negative Negative [facility] KETONE UA (POCT) Negative Negative mg/dL [facility] LEUKOCYTES UA (POCT) Negative Negative [facility] NITRITE UA (POCT) Negative Negative [facility] PH UA (POCT) 6.5 4.5 - 8.0 [facility] Protein Ql (U) Negative Negative mg/dL [facility] SPECIFIC GRAVITY UA (POCT) 1.010 1.005 - 1.030 [facility] UROBILINOGEN UA (POCT) 0.2 E.U./dL [facility] E.U./dL [facility] Absolute lymphocyte countOrd ered By: Alejo Salcido on 12-31-2021 Lymphocytes Auto (Unsp spec) [#/Vol] 1.26 10*3/uL 0.83-4.51 [facility] Basophil percentageOrdered B y: Alejo Salcido on 12-31-2021 Basophils/100 WBC (Bld) 0.3 % 0-1 [facility] Bilirubin [Mass/Vol] 0.50 mg/dL 0.20-1.[address] [facility] Comment on above: For patients on eltr ombopag therapy, use of Dimension [place] TBIL is not recommended. Chloride [Moles/Vol] 113 mmol/L 98-[address] [facility] Eosinophils/100 WBC (Bld) 1.6 % 0-5 [facility] Glucose [Mass/Vol] 93 mg/dL 74-106 [facility] Neutrophils (Bld) [#/Vol] 1.8 10*3/uL 2.0-7.7 [facility] Neutrophils/100 WBC (Bld) 49.5 % 47-70 [facility] Potassium [Moles/Vol] 4.3 mmol/L 3.5-5.1 [facility] Protein [Mass/Vol] 6.2 g/dL 6.4-8.2 [facility] Sodium [Moles/Vol] 144 mmol/L 136-145 [facility] WBC (Bld) [#/Vol] 3.6 10*3/uL 4.4-11.0 [facility] Blood erythrocytes count (nu mber/volume)Ordered By: Alejo Salcido on 12-31-2021 RBC (Bld) [#/Vol] 2.73 10*6/uL 4.2-5.4 [facility] Blood hemoglobin measurement (mass/volume)Ordered By: Alejo Salcido on 12-31-2021 Hemoglobin (Bld) [Mass/Vol] 7.5 g/dL 12.0-15.0 [facility] Blood lymphocytes/100 leukoc ytesOrdered By: Alejo Salcido on 12-31-2021 Lymphocytes/100 WBC (Bld) 34.6 % 19-41 [facility] Blood monocytes/100 leukocyt esOrdered By: Alejo Salcido on 12-31-2021 Monocytes/100 WBC (Bld) 13.7 % 0-10 [facility] Blood platelet mean volumeOr dered By: Alejo Salcido on 12-31-2021 Platelet mean volume (Bld) [Entitic vol] 10.4 fL 6.2-12.0 [facility] Determination of erythrocyte mean corpuscular volume (MCV)Ordered By: Alejo Salcido on 12-31-2021 MCV (RBC) [Entitic vol] 88.3 fL 81-99 [facility] Hematocrit Auto (Bld) [Volum e fraction]Ordered By: Alejo Salcido on 12-31-2021 Hematocrit (Bld) [Volume fraction] 24.1 % 37-47 [facility] Laboratory - Chemistry and C hemistry - challengeOrdered By: Alejo Salcido on 12-31-2021 ALP [Catalytic activity/Vol] 75 U/L 45-117 [facility] ALT [Catalytic activity/Vol] 25 U/L 13-56 [facility] CO2 [Moles/Vol] 22.0 mmol/L 21.0-32.0 [facility] Globulin (S) [Mass/Vol] 3.9 g/dL 2.2-4.2 [facility] Urea nitrogen/Creatinine [Mass ratio] 13.7 mg/mg 10-20 [facility] Laboratory - Hematology and Cell countsOrdered By: Alejo Salcido on 12-31-2021 Erythrocyte distribution width (RBC) [Entitic vol] 61.0 fL 35.1-43.9 [facility] Erythrocyte distribution width (RBC) [Ratio] 19.1 % 11.6-14.6 [facility] Immature granulocytes/100 WBC (Bld) 0.300 % 0.0-0.9 [facility] Comment on above: IG% - Immature Granu locytes (promyelocytes, myelocytes and metamyelocytes) > 1% indicates that a LEFT SHIFT is Present. MCH (RBC) [Entitic mass] 27.5 pg 27.0-32.0 [facility] Nucleated RBC/100 WBC (Bld) [Ratio] 0 % 0-5 [facility] MCHC Auto (RBC) [Mass/Vol]Or dered By: Alejo Salcido on 12-31-2021 MCHC (RBC) [Mass/Vol] 31.1 g/dL 32-36 [facility] No Panel InformationOrdered By: Alejo Salcido on 12-31-2021 Estimated GFR (MDRD) Amer 98 mL/min >60 [facility] Estimated GFR (MDRD) Non-Af Amer 81 mL/min >60 [facility] Platelets bldOrdered By: Levi Salcido on 12-31-2021 Platelets (Bld) [#/Vol] 125 10*3/uL 150-450 [facility] Serum or plasma albumin yontaan urement (mass/volume)Ordered By: Alejo Salcido on 12-31-2021 Albumin [Mass/Vol] 2.3 g/dL 3.2-5.0 [facility] Serum or plasma albumin/glob ulin mass ratioOrdered By: Alejo Salcido on 12-31-2021 Albumin/Globulin [Mass ratio] 0.6 {ratio} 0.9-2.4 [facility] Serum or plasma calcium yonatan urement (mass/volume)Ordered By: Alejo Salcido on 12-31-2021 Calcium [Mass/Vol] 8.4 mg/dL 8.5-10.1 [facility] Serum or plasma creatinine m easurement (mass/volume)Ordered By: Alejo Salcido on 12-31-2021 Creatinine [Mass/Vol] 0.73 mg/dL 0.55-1.02 [facility] Comment on above: The validity of the calculated GFR & GFRAA in patients over 70 years has not been determined. Clinical correlation is essential. Serum or plasma urea nitroge n measurement (mass/volume)Ordered By: Alejo Salcido on 12-31-2021 Urea nitrogen [Mass/Vol] 10 mg/dL 7-18 [facility] Thin prep Papanicolaou smear with manual screeningOrdered By: Alejo Salcido on 12-31-2021 Thin prep Papanicolaou smear with manual screening 35 U/L 15-37 [facility] Thin prep Papanicolaou smear with manual screening 9 5-15 [facility] Absolute lymphocyte countOrd ered By: Selma Durham on 12-28-2021 Lymphocytes Auto (Unsp spec) [#/Vol] 0.99 10*3/uL 0.83-4.51 [facility] Basophil percentageOrdered B y: Selma Durham on 12-28-2021 Basophils/100 WBC (Bld) 0.3 % 0-1 [facility] Eosinophils/100 WBC (Bld) 1.0 % 0-5 [facility] Neutrophils (Bld) [#/Vol] 1.5 10*3/uL 2.0-7.7 [facility] Neutrophils/100 WBC (Bld) 51.6 % 47-70 [facility] WBC (Bld) [#/Vol] 2.9 10*3/uL 4.4-11.0 [facility] Blood erythrocytes count (nu mber/volume)Ordered By: Selma Durham on 12-28-2021 RBC (Bld) [#/Vol] 2.60 10*6/uL 4.2-5.4 [facility] Blood hemoglobin measurement (mass/volume)Ordered By: Selma Durham on 12-28-2021 Hemoglobin (Bld) [Mass/Vol] 7.1 g/dL 12.0-15.0 [facility] Blood lymphocytes/100 leukoc ytesOrdered By: Selma Durham on 12-28-2021 Lymphocytes/100 WBC (Bld) 33.8 % 19-41 [facility] Blood monocytes/100 leukocyt esOrdered By: Selma Durham on 12-28-2021 Monocytes/100 WBC (Bld) 13.0 % 0-10 [facility] Blood platelet mean volumeOr dered By: Selma Durham on 12-28-2021 Platelet mean volume (Bld) [Entitic vol] 10.2 fL 6.2-12.0 [facility] Determination of erythrocyte mean corpuscular volume (MCV)Ordered By: Selma Durham on 12-28-2021 MCV (RBC) [Entitic vol] 86.5 fL 81-99 [facility] Hematocrit Auto (Bld) [Volum e fraction]Ordered By: Selma Durham on 12-28-2021 Hematocrit (Bld) [Volume fraction] 22.5 % 37-47 [facility] INR in Blood by Coagulation assayOrdered By: Selma Durham on 12-28-2021 INR Coag (Bld) [Relative time] 2.6 {INR} [facility] Laboratory - CoagulationOrde red By: Selma Durham on 12-28-2021 PT Coag (PPP) [Time] 27.1 s 11.7-14.[address] [facility] Laboratory - Hematology and Cell countsOrdered By: Selma Durham on 12-28-2021 Erythrocyte distribution width (RBC) [Entitic vol] 63.3 fL 35.1-43.9 [facility] Erythrocyte distribution width (RBC) [Ratio] 19.9 % 11.6-14.6 [facility] Immature granulocytes/100 WBC (Bld) 0.300 % 0.0-0.9 [facility] Comment on above: IG% - Immature Granu locytes (promyelocytes, myelocytes and metamyelocytes) > 1% indicates that a LEFT SHIFT is Present. MCH (RBC) [Entitic mass] 27.3 pg 27.0-32.0 [facility] Nucleated RBC/100 WBC (Bld) [Ratio] 0 % 0-5 [facility] MCHC Auto (RBC) [Mass/Vol]Or dered By: Selma Durham on 12-28-2021 MCHC (RBC) [Mass/Vol] 31.6 g/dL 32-36 [facility] Platelets bldOrdered By: Hafsa Durham on 12-28-2021 Platelets (Bld) [#/Vol] 108 10*3/uL 150-450 [facility] Absolute lymphocyte countOrd ered By: Alejo Salcido on 12-27-2021 Lymphocytes Auto (Unsp spec) [#/Vol] 1.15 10*3/uL 0.83-4.51 [facility] Basophil percentageOrdered B y: Alejo Salcido on 12-27-2021 Basophils/100 WBC (Bld) 0.0 % 0-1 [facility] Eosinophils/100 WBC (Bld) 1.2 % 0-5 [facility] Neutrophils (Bld) [#/Vol] 0.8 10*3/uL 2.0-7.7 [facility] Neutrophils/100 WBC (Bld) 33.7 % 47-70 [facility] WBC (Bld) [#/Vol] 2.4 10*3/uL 4.4-11.0 [facility] Blood erythrocytes count (nu mber/volume)Ordered By: Alejo Salcido on 12-27-2021 RBC (Bld) [#/Vol] 2.55 10*6/uL 4.2-5.4 [facility] Blood hemoglobin measurement (mass/volume)Ordered By: Alejo Salcido on 12-27-2021 Hemoglobin (Bld) [Mass/Vol] 6.7 g/dL 12.0-15.0 [facility] Blood lymphocytes/100 leukoc ytesOrdered By: Alejo Salcido on 12-27-2021 Lymphocytes/100 WBC (Bld) 47.1 % 19-41 [facility] Blood manual differential co mment interpretation (narrative result)Ordered By: Alejo Salcido on 12-27-2021 Manual differential comment [place] (Bld) [Interp] See comment [facility] Comment on above: NEUTROPENIA Blood monocytes/100 leukocyt esOrdered By: Alejo Salcido on 12-27-2021 Monocytes/100 WBC (Bld) 18.0 % 0-10 [facility] Blood platelet adequacy dete ction by light microscopyOrdered By: Alejo Salcido on 12-27-2021 Platelets LM Ql (Bld) SLT DEC ADEQ [facility] Blood platelet mean volumeOr dered By: Alejo Salcido on 12-27-2021 Platelet mean volume (Bld) [Entitic vol] 10.5 fL 6.2-12.0 [facility] Determination of erythrocyte mean corpuscular volume (MCV)Ordered By: Alejo Salcido on 12-27-2021 MCV (RBC) [Entitic vol] 87.1 fL 81-99 [facility] Hematocrit Auto (Bld) [Volum e fraction]Ordered By: Alejo Salcido on 12-27-2021 Hematocrit (Bld) [Volume fraction] 22.2 % 37-47 [facility] Hypochromatic red blood cell detectionOrdered By: Alejo Salcido on 12-27-2021 Hypochromia Ql (Bld) 2+ [facility] INR in Blood by Coagulation assayOrdered By: Alejo Salcido on 12-27-2021 INR Coag (Bld) [Relative time] 3.0 {INR} [facility] Laboratory - CoagulationOrde red By: Alejo Salcido on 12-27-2021 PT Coag (PPP) [Time] 30.9 s 11.7-14.[address] [facility] Laboratory - Hematology and Cell countsOrdered By: Alejo Salcido on 12-27-2021 Anisocytosis Ql (Bld) 1+ [facility] Erythrocyte distribution width (RBC) [Entitic vol] 63.0 fL 35.1-43.9 [facility] Erythrocyte distribution width (RBC) [Ratio] 19.7 % 11.6-14.6 [facility] Immature granulocytes/100 WBC (Bld) 0.000 % 0.0-0.9 [facility] Comment on above: IG% - Immature Granu locytes (promyelocytes, myelocytes and metamyelocytes) > 1% indicates that a LEFT SHIFT is Present. MCH (RBC) [Entitic mass] 26.3 pg 27.0-32.0 [facility] Nucleated RBC/100 WBC (Bld) [Ratio] 0 % 0-5 [facility] MCHC Auto (RBC) [Mass/Vol]Or dered By: Alejo Salcido on 12-27-2021 MCHC (RBC) [Mass/Vol] 30.2 g/dL 32-36 [facility] Platelets bldOrdered By: Levi Salcido on 12-27-2021 Platelets (Bld) [#/Vol] 104 10*3/uL 150-450 [facility] Absolute lymphocyte countOrd ered By: Alejo Salcido on 12-22-2021 Lymphocytes Auto (Unsp spec) [#/Vol] 0.98 10*3/uL 0.83-4.51 [facility] Basophil percentageOrdered B y: Alejo Salcido on 12-22-2021 Basophils/100 WBC (Bld) 0.3 % 0-1 [facility] Chloride [Moles/Vol] 110 mmol/L 98-[address] [facility] Eosinophils/100 WBC (Bld) 0.3 % 0-5 [facility] Glucose [Mass/Vol] 111 mg/dL 74-106 [facility] Comment on above: Fasting Glucose resu lt from 100 to 125 mg/dL suggests IMPAIRED HOMEOSTASIS per A.D.A. criteria. Neutrophils (Bld) [#/Vol] 2.1 10*3/uL 2.0-7.7 [facility] Neutrophils/100 WBC (Bld) 54.4 % 47-70 [facility] Potassium [Moles/Vol] 3.8 mmol/L 3.5-5.1 [facility] Sodium [Moles/Vol] 140 mmol/L 136-145 [facility] WBC (Bld) [#/Vol] 3.9 10*3/uL 4.4-11.0 [facility] Blood erythrocytes count (nu mber/volume)Ordered By: Alejo Salcido on 12-22-2021 RBC (Bld) [#/Vol] 2.80 10*6/uL 4.2-5.4 [facility] Blood hemoglobin measurement (mass/volume)Ordered By: Alejo Salcido on 12-22-2021 Hemoglobin (Bld) [Mass/Vol] 7.5 g/dL 12.0-15.0 [facility] Blood lymphocytes/100 leukoc ytesOrdered By: Alejo Salcido on 12-22-2021 Lymphocytes/100 WBC (Bld) 25.3 % 19-41 [facility] Blood monocytes/100 leukocyt esOrdered By: Alejo Salcido on 12-22-2021 Monocytes/100 WBC (Bld) 19.4 % 0-10 [facility] Blood platelet mean volumeOr dered By: Alejo Salcido on 12-22-2021 Platelet mean volume (Bld) [Entitic vol] 10.4 fL 6.2-12.0 [facility] Determination of erythrocyte mean corpuscular volume (MCV)Ordered By: Alejo Salcido on 12-22-2021 MCV (RBC) [Entitic vol] 85.4 fL 81-99 [facility] Hematocrit Auto (Bld) [Volum e fraction]Ordered By: Alejo Salcido on 12-22-2021 Hematocrit (Bld) [Volume fraction] 23.9 % 37-47 [facility] Laboratory - Chemistry and C hemistry - challengeOrdered By: Alejo Salcido on 12-22-2021 CO2 [Moles/Vol] 24.0 mmol/L 21.0-32.0 [facility] Urea nitrogen/Creatinine [Mass ratio] 19.0 mg/mg 10-20 [facility] Laboratory - Hematology and Cell countsOrdered By: Alejo Salcido on 12-22-2021 Erythrocyte distribution width (RBC) [Entitic vol] 61.6 fL 35.1-43.9 [facility] Erythrocyte distribution width (RBC) [Ratio] 19.5 % 11.6-14.6 [facility] Immature granulocytes/100 WBC (Bld) 0.300 % 0.0-0.9 [facility] Comment on above: IG% - Immature Granu locytes (promyelocytes, myelocytes and metamyelocytes) > 1% indicates that a LEFT SHIFT is Present. MCH (RBC) [Entitic mass] 26.8 pg 27.0-32.0 [facility] Nucleated RBC/100 WBC (Bld) [Ratio] 0 % 0-5 [facility] MCHC Auto (RBC) [Mass/Vol]Or dered By: Alejo Salcido on 12-22-2021 MCHC (RBC) [Mass/Vol] 31.4 g/dL 32-36 [facility] No Panel InformationOrdered By: Alejo Salcido on 12-22-2021 Estimated GFR (MDRD) Amer 72 mL/min >60 [facility] Comment on above: GFR Calc Estimated GFR (MDRD) Non-Af Amer 60 mL/min >60 [facility] Comment on above: Non- GFR Calc Platelets bldOrdered By: Levi Salcido on 12-22-2021 Platelets (Bld) [#/Vol] 136 10*3/uL 150-450 [facility] Serum or plasma calcium yonatan urement (mass/volume)Ordered By: Alejo Salcido on 12-22-2021 Calcium [Mass/Vol] 8.2 mg/dL 8.5-10.1 [facility] Serum or plasma creatinine m easurement (mass/volume)Ordered By: Alejo Salcido on 12-22-2021 Creatinine [Mass/Vol] 0.95 mg/dL 0.55-1.02 [facility] Comment on above: The validity of the calculated GFR & GFRAA in patients over 70 years has not been determined. Clinical correlation is essential. Serum or plasma urea nitroge n measurement (mass/volume)Ordered By: Alejo Salcido on 12-22-2021 Urea nitrogen [Mass/Vol] 18 mg/dL 7-18 [facility] Thin prep Papanicolaou smear with manual screeningOrdered By: Alejo Salcido on 12-22-2021 Thin prep Papanicolaou smear with manual screening 6 5-15 [facility] Laboratory - CoagulationOrde red By: Alejo Salcido on 12-17-2021 INR Coag (Bld) [Relative time] 2.7 {INR} [facility] Comment on above: Critical Value > 4.0 Whole blood prothrombin time Ordered By: Alejo Salcido on 12-17-2021 PT Coag (Bld) [Time] 31.0 s 11.7-14.[address] [facility] Laboratory - CoagulationOrde red By: Alejo Salcido on 12-10-2021 INR Coag (Bld) [Relative time] 2.4 {INR} [facility] Comment on above: Critical Value > 4.0 Whole blood prothrombin time Ordered By: Alejo Salcido on 12-10-2021 PT Coag (Bld) [Time] 28.1 s 11.7-14.[address] [facility] Absolute lymphocyte countOrd ered By: Alejo Salcido on 12-03-2021 Lymphocytes Auto (Unsp spec) [#/Vol] 1.47 10*3/uL 0.83-4.51 [facility] Basophil percentageOrdered B y: Alejo Salcido on 12-03-2021 Basophils/100 WBC (Bld) 0.8 % 0-1 [facility] Bilirubin [Mass/Vol] 0.40 mg/dL 0.20-1.[address] [facility] Comment on above: For patients on eltr ombopag therapy, use of Dimension [place] TBIL is not recommended. Chloride [Moles/Vol] 113 mmol/L 98-[address] [facility] Eosinophils/100 WBC (Bld) 2.9 % 0-5 [facility] Glucose [Mass/Vol] 84 mg/dL 74-106 [facility] Neutrophils (Bld) [#/Vol] 2.5 10*3/uL 2.0-7.7 [facility] Neutrophils/100 WBC (Bld) 51.5 % 47-70 [facility] Potassium [Moles/Vol] 4.0 mmol/L 3.5-5.1 [facility] Protein [Mass/Vol] 7.4 g/dL 6.4-8.2 [facility] Sodium [Moles/Vol] 144 mmol/L 136-145 [facility] WBC (Bld) [#/Vol] 4.9 10*3/uL 4.4-11.0 [facility] Blood erythrocytes count (nu mber/volume)Ordered By: Alejo Salcido on 12-03-2021 RBC (Bld) [#/Vol] 3.31 10*6/uL 4.2-5.4 [facility] Blood hemoglobin measurement (mass/volume)Ordered By: Alejo Salcido on 12-03-2021 Hemoglobin (Bld) [Mass/Vol] 8.6 g/dL 12.0-15.0 [facility] Blood lymphocytes/100 leukoc ytesOrdered By: Alejo Salcido on 12-03-2021 Lymphocytes/100 WBC (Bld) 29.9 % 19-41 [facility] Blood monocytes/100 leukocyt esOrdered By: Alejo Salcido on 12-03-2021 Monocytes/100 WBC (Bld) 14.7 % 0-10 [facility] Blood platelet mean volumeOr dered By: Alejo Salcido on 12-03-2021 Platelet mean volume (Bld) [Entitic vol] 10.1 fL 6.2-12.0 [facility] Determination of erythrocyte mean corpuscular volume (MCV)Ordered By: Alejo Salcido on 12-03-2021 MCV (RBC) [Entitic vol] 87.9 fL 81-99 [facility] Hematocrit Auto (Bld) [Volum e fraction]Ordered By: Alejo Salcido on 12-03-2021 Hematocrit (Bld) [Volume fraction] 29.1 % 37-47 [facility] INR in Blood by Coagulation assayOrdered By: Alejo Salcido on 12-03-2021 INR Coag (Bld) [Relative time] 2.4 {INR} [facility] Laboratory - Chemistry and C hemistry - challengeOrdered By: Alejo Salcido on 12-03-2021 ALP [Catalytic activity/Vol] 85 U/L 45-117 [facility] ALT [Catalytic activity/Vol] 22 U/L 13-56 [facility] CO2 [Moles/Vol] 25.0 mmol/L 21.0-32.0 [facility] Globulin (S) [Mass/Vol] 4.8 g/dL 2.2-4.2 [facility] Urea nitrogen/Creatinine [Mass ratio] 20.7 mg/mg 10-20 [facility] Laboratory - CoagulationOrde red By: Alejo Salcido on 12-03-2021 PT Coag (PPP) [Time] 25.8 s 11.7-14.[address] [facility] Laboratory - Hematology and Cell countsOrdered By: Alejo Salcido on 12-03-2021 Erythrocyte distribution width (RBC) [Entitic vol] 62.5 fL 35.1-43.9 [facility] Erythrocyte distribution width (RBC) [Ratio] 19.6 % 11.6-14.6 [facility] Immature granulocytes/100 WBC (Bld) 0.200 % 0.0-0.9 [facility] Comment on above: IG% - Immature Granu locytes (promyelocytes, myelocytes and metamyelocytes) > 1% indicates that a LEFT SHIFT is Present. MCH (RBC) [Entitic mass] 26.0 pg 27.0-32.0 [facility] Nucleated RBC/100 WBC (Bld) [Ratio] 0 % 0-5 [facility] MCHC Auto (RBC) [Mass/Vol]Or dered By: Alejo Salcido on 12-03-2021 MCHC (RBC) [Mass/Vol] 29.6 g/dL 32-36 [facility] No Panel InformationOrdered By: Alejo Salcido on 12-03-2021 Estimated GFR (MDRD) Amer 106 mL/min >60 [facility] Comment on above: GFR Calc Estimated GFR (MDRD) Non-Af Amer 88 mL/min >60 [facility] Comment on above: Non- GFR Calc Platelets bldOrdered By: Levi Salcido on 12-03-2021 Platelets (Bld) [#/Vol] 173 10*3/uL 150-450 [facility] Serum or plasma albumin yonatan urement (mass/volume)Ordered By: Alejo Salcido on 12-03-2021 Albumin [Mass/Vol] 2.6 g/dL 3.2-5.0 [facility] Serum or plasma albumin/glob ulin mass ratioOrdered By: Alejo Salcido on 12-03-2021 Albumin/Globulin [Mass ratio] 0.5 {ratio} 0.9-2.4 [facility] Serum or plasma calcium yonatan urement (mass/volume)Ordered By: Alejo Salcido on 12-03-2021 Calcium [Mass/Vol] 9.3 mg/dL 8.5-10.1 [facility] Serum or plasma creatinine m easurement (mass/volume)Ordered By: Alejo Salcido on 12-03-2021 Creatinine [Mass/Vol] 0.68 mg/dL 0.55-1.02 [facility] Comment on above: The validity of the calculated GFR & GFRAA in patients over 70 years has not been determined. Clinical correlation is essential. Serum or plasma urea nitroge n measurement (mass/volume)Ordered By: Alejo Salcido on 12-03-2021 Urea nitrogen [Mass/Vol] 14 mg/dL 7-18 [facility] Thin prep Papanicolaou smear with manual screeningOrdered By: Alejo Salcido on 12-03-2021 Thin prep Papanicolaou smear with manual screening 24 U/L 15-37 [facility] Thin prep Papanicolaou smear with manual screening 6 5-15 [facility] Laboratory - Coagulationon 0 11-26-2021 INR Coag (Bld) [Relative time] 1.1 {INR} [facility] Work Phone: [phone] Comment on above: Critical Value > 4.0 Whole blood prothrombin time on 11-26-2021 PT Coag (Bld) [Time] 13.7 s 11.7-14.[address] [facility] Work Phone: Absolute lymphocyte counton 11-20-2021 Lymphocytes Auto (Unsp spec) [#/Vol] 1.35 10*3/uL 0.83-4.51 [facility] Work Phone: Basophil percentageon 2021 Basophils/100 WBC (Bld) 0.8 % 0-1 [facility] Work Phone: Eosinophils/100 WBC (Bld) 1.7 % 0-5 [facility] Work Phone: Neutrophils (Bld) [#/Vol] 3.1 10*3/uL 2.0-7.7 [facility] Work Phone: Neutrophils/100 WBC (Bld) 59.8 % 47-70 [facility] Work Phone: WBC (Bld) [#/Vol] 5.2 10*3/uL 4.4-11.0 [facility] Work Phone: Blood erythrocytes count (nu mber/volume)on 11-20-2021 RBC (Bld) [#/Vol] 3.20 10*6/uL 4.2-5.4 [facility] Work Phone: Blood hemoglobin measurement (mass/volume)on 11-20-2021 Hemoglobin (Bld) [Mass/Vol] 8.5 g/dL 12.0-15.0 [facility] Work Phone: Blood lymphocytes/100 leukoc yteson 11-20-2021 Lymphocytes/100 WBC (Bld) 26.0 % 19-41 [facility] Work Phone: Blood monocytes/100 leukocyt eson 11-20-2021 Monocytes/100 WBC (Bld) 11.5 % 0-10 [facility] Work Phone: Blood platelet mean volumeon 11-20-2021 Platelet mean volume (Bld) [Entitic vol] 9.8 fL 6.2-12.0 [facility] Work Phone: Determination of erythrocyte mean corpuscular volume (MCV)on 11-20-2021 MCV (RBC) [Entitic vol] 88.1 fL 81-99 [facility] Work Phone: Hematocrit Auto (Bld) [Volum e fraction]on 11-20-2021 Hematocrit (Bld) [Volume fraction] 28.2 % 37-47 [facility] Work Phone: Laboratory - Hematology and Cell countson 11-20-2021 Erythrocyte distribution width (RBC) [Entitic vol] 63.0 fL 35.1-43.9 [facility] Work Phone: Erythrocyte distribution width (RBC) [Ratio] 19.5 % 11.6-14.6 [facility] Work Phone: Immature granulocytes/100 WBC (Bld) 0.200 % 0.0-0.9 [facility] Work Phone: Comment on above: IG% - Immature Granu locytes (promyelocytes, myelocytes and metamyelocytes) > 1% indicates that a LEFT SHIFT is Present. MCH (RBC) [Entitic mass] 26.6 pg 27.0-32.0 [facility] Work Phone: Nucleated RBC/100 WBC (Bld) [Ratio] 0 % 0-5 [facility] Work Phone: MCHC Auto (RBC) [Mass/Vol]on 11-20-2021 MCHC (RBC) [Mass/Vol] 30.1 g/dL 32-36 [facility] Work Phone: Platelets bldon 09-06-2022 Platelets (Bld) [#/Vol] 184 10*3/uL 150-450 [facility] Work Phone: Absolute lymphocyte counton 10-29-2021 Lymphocytes Auto (Unsp spec) [#/Vol] 1.41 10*3/uL 0.83-4.51 [facility] Work Phone: Basophil percentageon 2021 Basophils/100 WBC (Bld) 0.6 % 0-1 [facility] Work Phone: Bilirubin [Mass/Vol] 0.50 mg/dL 0.20-1.[address] [facility] Work Phone: Comment on above: For patients on eltr ombopag therapy, use of Dimension [place] TBIL is not recommended. Chloride [Moles/Vol] 112 mmol/L 98-[address] [facility] Work Phone: Eosinophils/100 WBC (Bld) 2.5 % 0-5 [facility] Work Phone: Glucose [Mass/Vol] 82 mg/dL 74-106 [facility] Work Phone: Neutrophils (Bld) [#/Vol] 2.5 10*3/uL 2.0-7.7 [facility] Work Phone: Neutrophils/100 WBC (Bld) 52.7 % 47-70 [facility] Work Phone: Potassium [Moles/Vol] 3.9 mmol/L 3.5-5.1 [facility] Work Phone: Protein [Mass/Vol] 7.0 g/dL 6.4-8.2 [facility] Work Phone: Sodium [Moles/Vol] 144 mmol/L 136-145 [facility] Work Phone: WBC (Bld) [#/Vol] 4.8 10*3/uL 4.4-11.0 [facility] Work Phone: Blood erythrocytes count (nu mber/volume)on 10-29-2021 RBC (Bld) [#/Vol] 3.13 10*6/uL 4.2-5.4 [facility] Work Phone: [phone] Blood hemoglobin measurement (mass/volume)on 10-29-2021 Hemoglobin (Bld) [Mass/Vol] 8.5 g/dL 12.0-15.0 [facility] Work Phone: Blood lymphocytes/100 leukoc yteson 10-29-2021 Lymphocytes/100 WBC (Bld) 29.7 % 19-41 [facility] Work Phone: Blood monocytes/100 leukocyt eson 10-29-2021 Monocytes/100 WBC (Bld) 14.5 % 0-10 [facility] Work Phone: Blood platelet mean volumeon 10-29-2021 Platelet mean volume (Bld) [Entitic vol] 10.4 fL 6.2-12.0 [facility] Work Phone: [phone] Determination of erythrocyte mean corpuscular volume (MCV)on 10-29-2021 MCV (RBC) [Entitic vol] 86.6 fL 81-99 [facility] Work Phone: Hematocrit Auto (Bld) [Volum e fraction]on 10-29-2021 Hematocrit (Bld) [Volume fraction] 27.1 % 37-47 [facility] Work Phone: [phone] Laboratory - Chemistry and C hemistry - challengeon 10-29-2021 ALP [Catalytic activity/Vol] 77 U/L 45-117 [facility] Work Phone: ALT [Catalytic activity/Vol] 23 U/L 13-56 [facility] Work Phone: CO2 [Moles/Vol] 24.0 mmol/L 21.0-32.0 [facility] Work Phone: Globulin (S) [Mass/Vol] 4.4 g/dL 2.2-4.2 [facility] Work Phone: [phone] Urea nitrogen/Creatinine [Mass ratio] 23.5 mg/mg 10-20 [facility] Work Phone: Laboratory - Hematology and Cell countson 10-29-2021 Erythrocyte distribution width (RBC) [Entitic vol] 55.9 fL 35.1-43.9 [facility] Work Phone: Erythrocyte distribution width (RBC) [Ratio] 18.0 % 11.6-14.6 [facility] Work Phone: Immature granulocytes/100 WBC (Bld) 0.000 % 0.0-0.9 [facility] Work Phone: Comment on above: IG% - Immature Granu locytes (promyelocytes, myelocytes and metamyelocytes) > 1% indicates that a LEFT SHIFT is Present. MCH (RBC) [Entitic mass] 27.2 pg 27.0-32.0 [facility] Work Phone: Nucleated RBC/100 WBC (Bld) [Ratio] 0 % 0-5 [facility] Work Phone: MCHC Auto (RBC) [Mass/Vol]on 10-29-2021 MCHC (RBC) [Mass/Vol] 31.4 g/dL 32-36 [facility] Work Phone: No Panel Informationon 10-29 Estimated GFR (MDRD) Amer 92 mL/min >60 [facility] Work Phone: Comment on above: GFR Calc Estimated GFR (MDRD) Non-Af Amer 76 mL/min >60 [facility] Work Phone: Comment on above: Non- GFR Calc Thyroid Stimulating Hormone (TSH) 1.37 uIU/mL 0.358-3.74 [facility] Work Phone: Platelets bldon 10-29-2021 Platelets (Bld) [#/Vol] 164 10*3/uL 150-450 [facility] Work Phone: Serum or plasma albumin yonatan urement (mass/volume)on 10-29-2021 Albumin [Mass/Vol] 2.6 g/dL 3.2-5.0 [facility] Work Phone: [phone] Serum or plasma albumin/glob ulin mass ratioon 10-29-2021 Albumin/Globulin [Mass ratio] 0.6 {ratio} 0.9-2.4 [facility] Work Phone: [phone] Serum or plasma calcium yonatan urement (mass/volume)on 10-29-2021 Calcium [Mass/Vol] 9.2 mg/dL 8.5-10.1 [facility] Work Phone: [phone] Serum or plasma creatinine m easurement (mass/volume)on 10-29-2021 Creatinine [Mass/Vol] 0.77 mg/dL 0.55-1.02 [facility] Work Phone: [phone] Comment on above: The validity of the calculated GFR & GFRAA in patients over 70 years has not been determined. Clinical correlation is essential. Serum or plasma urea nitroge n measurement (mass/volume)on 10-29-2021 Urea nitrogen [Mass/Vol] 18 mg/dL 7-18 [facility] Work Phone: Thin prep Papanicolaou smear with manual screeningon 10-29-2021 Thin prep Papanicolaou smear with manual screening 27 U/L 15-37 [facility] Work Phone: Thin prep Papanicolaou smear with manual screening 8 5-15 [facility] Work Phone: [phone] Absolute lymphocyte counton 10-18-2021 Lymphocytes Auto (Unsp spec) [#/Vol] 1.43 10*3/uL 0.83-4.51 [facility] Work Phone: Basophil percentageon 2021 Basophil percentage 0 SEEN /hpf 0-[address] [facility] Work Phone: Basophils/100 WBC (Bld) 0.4 % 0-1 [facility] Work Phone: Chloride [Moles/Vol] 111 mmol/L 98-[address] [facility] Work Phone: Eosinophils/100 WBC (Bld) 1.4 % 0-5 [facility] Work Phone: Glucose [Mass/Vol] 113 mg/dL 74-106 [facility] Work Phone: Comment on above: Fasting Glucose resu lt from 100 to 125 mg/dL suggests IMPAIRED HOMEOSTASIS per A.D.A. criteria. Neutrophils (Bld) [#/Vol] 3.2 10*3/uL 2.0-7.7 [facility] Work Phone: Neutrophils/100 WBC (Bld) 57.4 % 47-70 [facility] Work Phone: Potassium [Moles/Vol] 3.9 mmol/L 3.5-5.1 [facility] Work Phone: Sodium [Moles/Vol] 140 mmol/L 136-145 [facility] Work Phone: WBC (Bld) [#/Vol] 5.5 10*3/uL 4.4-11.0 [facility] Work Phone: [phone] Bilirubin Test strip Ql (U)o n 10-18-2021 Bilirubin Ql (U) Negative Negative [facility] Work Phone: Blood erythrocytes count (nu mber/volume)on 10-18-2021 RBC (Bld) [#/Vol] 2.39 10*6/uL 4.2-5.4 [facility] Work Phone: Blood hemoglobin measurement (mass/volume)on 10-18-2021 Hemoglobin (Bld) [Mass/Vol] 6.2 g/dL 12.0-15.0 [facility] Work Phone: Blood lymphocytes/100 leukoc yteson 10-18-2021 Lymphocytes/100 WBC (Bld) 25.9 % 19-41 [facility] Work Phone: Blood monocytes/100 leukocyt eson 10-18-2021 Monocytes/100 WBC (Bld) 14.5 % 0-10 [facility] Work Phone: Blood platelet mean volumeon 10-18-2021 Platelet mean volume (Bld) [Entitic vol] 8.9 fL 6.2-12.0 [facility] Work Phone: [phone] Determination of erythrocyte mean corpuscular volume (MCV)on 10-18-2021 MCV (RBC) [Entitic vol] 84.5 fL 81-99 [facility] Work Phone: [phone] Hematocrit Auto (Bld) [Volum e fraction]on 10-18-2021 Hematocrit (Bld) [Volume fraction] 20.2 % 37-47 [facility] Work Phone: [phone] INR in Blood by Coagulation assayon 10-18-2021 INR Coag (Bld) [Relative time] 1.7 {INR} [facility] Work Phone: [phone] Iron measurement (mass/mass) on 10-18-2021 Iron (Unsp spec) [Mass/Mass] 25 ug/dL 50-170 [facility] Work Phone: [phone] Ketones Test strip Ql (U)on 10-18-2021 Ketones Ql (U) Negative Negative [facility] Work Phone: [phone] Laboratory - Chemistry and C hemistry - challengeon 10-18-2021 CO2 [Moles/Vol] 25.0 mmol/L 21.0-32.0 [facility] Work Phone: [phone] Urea nitrogen/Creatinine [Mass ratio] 23.5 mg/mg 10-20 [facility] Work Phone: [phone] Laboratory - Coagulationon 0 10-18-2021 PT Coag (PPP) [Time] 19.9 s 11.7-14.[address] [facility] Work Phone: Laboratory - Hematology and Cell countson 10-18-2021 Erythrocyte distribution width (RBC) [Entitic vol] 53.0 fL 35.1-43.9 [facility] Work Phone: [phone] Erythrocyte distribution width (RBC) [Ratio] 17.2 % 11.6-14.6 [facility] Work Phone: [phone] Immature granulocytes/100 WBC (Bld) 0.400 % 0.0-0.9 [facility] Work Phone: Comment on above: IG% - Immature Granu locytes (promyelocytes, myelocytes and metamyelocytes) > 1% indicates that a LEFT SHIFT is Present. MCH (RBC) [Entitic mass] 25.9 pg 27.0-32.0 [facility] Work Phone: Nucleated RBC/100 WBC (Bld) [Ratio] 0 % 0-5 [facility] Work Phone: MCHC Auto (RBC) [Mass/Vol]on 10-18-2021 MCHC (RBC) [Mass/Vol] 30.7 g/dL 32-36 [facility] Work Phone: Mucus LM Ql (Urine sed)on Mucus Ql (Urine sed) 0 SEEN /hpf [facility] Work Phone: Nitrite Test strip Ql (U)on 10-18-2021 Nitrite Ql (U) Negative Negative [facility] Work Phone: No Panel Informationon 10-18 Estimated Creatinine Clearance Calc 38.50 ml/min [facility] Work Phone: Estimated GFR (MDRD) Amer 99 mL/min >60 [facility] Work Phone: Comment on above: GFR Calc Estimated GFR (MDRD) Non-Af Amer 82 mL/min >60 [facility] Work Phone: Comment on above: Non- GFR Calc Total Iron Binding Capacity 371 ug/dL 250-450 [facility] Work Phone: Platelets bldon 10-18-2021 Platelets (Bld) [#/Vol] 140 10*3/uL 150-450 [facility] Work Phone: Protein Test strip Ql (U)on 10-18-2021 Protein Ql (U) Negative Negative [facility] Work Phone: Serum or plasma calcium yonatan urement (mass/volume)on 10-18-2021 Calcium [Mass/Vol] 8.1 mg/dL 8.5-10.1 [facility] Work Phone: Serum or plasma creatinine m easurement (mass/volume)on 10-18-2021 Creatinine [Mass/Vol] 0.72 mg/dL 0.55-1.02 [facility] Work Phone: Comment on above: The validity of the calculated GFR & GFRAA in patients over 70 years has not been determined. Clinical correlation is essential. Serum or plasma ferritin shania surement (mass/volume)on 10-18-2021 Ferritin [Mass/Vol] 10 ng/mL 8-252 [facility] Work Phone: Serum or plasma iron saturat ion measurement (mass fraction)on 10-18-2021 Iron saturation [Mass fraction] 6.7 % 15.0-55.0 [facility] Work Phone: Serum or plasma urea nitroge n measurement (mass/volume)on 10-18-2021 Urea nitrogen [Mass/Vol] 17 mg/dL 7-18 [facility] Work Phone: Squamous epithelial cells de tection in urine sediment by light microscopyon 10-18-2021 Epithelial cells.squamous LM Ql (Urine sed) 0 SEEN /hpf 5-10 [facility] Work Phone: Thin prep Papanicolaou smear with manual screeningon 10-18-2021 Thin prep Papanicolaou smear with manual screening 4 5-15 [facility] Work Phone: Urine blood detectionon 08-0 RBC Ql (U) Negative Negative [facility] Work Phone: RBC Ql (U) 0 SEEN /hpf 0-5 [facility] Work Phone: Urine clarityon 10-18-2021 Clarity (U) Clear Clear [facility] Work Phone: Urine color determinationon 10-18-2021 Color (U) Yellow Yellow [facility] Work Phone: Urine glucose detectionon Glucose Ql (U) Normal mg/dl Normal [facility] Work Phone: Urine leukocyte esterase det ection by dipstickon 10-18-2021 Leukocyte esterase Test strip Ql (U) 100 /ul Negative [facility] Work Phone: Urine pHon 10-18-2021 pH (U) 6.5 [pH] 5.0 - 8.0 [facility] Work Phone: Urine sediment bacteria coun t by microscopy (number/high power field)on 10-18-2021 Bacteria LM.HPF (Urine sed) [#/Area] 0 /[HPF] None Seen [facility] Work Phone: Urine specific gravity measu rementon 10-18-2021 Specific gravity (U) [Rel density] 1.005 1.002-1.030 [facility] Work Phone: Urobilinogen Auto test strip Ql (U)on 10-18-2021 Urobilinogen Ql (U) Normal mg/dl Normal [facility] Work Phone: CBC W Auto Differential pane l (Bld)on 10-16-2021 Abs Immature Gran <0.03 <0.10 k/uL [facility] Basophils (Bld) [#/Vol] 0.04 10*3/uL <0.11 k/uL [facility] Basophils/100 WBC (Bld) 0.8 % [facility] Differential cell count method Nom (Bld) Auto [facility] Eosinophils (Bld) [#/Vol] 0.07 10*3/uL <0.46 k/uL [facility] Eosinophils/100 WBC (Bld) 1.3 % [facility] Erythrocyte distribution width (RBC) [Ratio] 17.0 % High 11.5 - 15.0 % [facility] Hematocrit (Bld) [Volume fraction] 21.0 % Low 36.0 - 46.0 % [facility] Hemoglobin (Bld) [Mass/Vol] 6.5 g/dL Low 11.5 - 15.5 g/dL [facility] Immature Gran % 0.4 % [facility] Lymphocytes (Bld) [#/Vol] 1.10 10*3/uL 1.00 - 4.00 k/uL [facility] Lymphocytes/100 WBC (Bld) 21.2 % [facility] MCH (RBC) [Entitic mass] 25.6 pg Low 26.0 - 34.0 pg [facility] MCHC (RBC) [Mass/Vol] 31.0 g/dL 30.5 - 36.0 g/dL [facility] MCV (RBC) [Entitic vol] 82.7 fL 80.0 - 100.0 fL [facility] Monocytes (Bld) [#/Vol] 0.61 10*3/uL <0.87 k/uL [facility] Monocytes/100 WBC (Bld) 11.7 % [facility] Neutrophils (Bld) [#/Vol] 3.36 10*3/uL 1.45 - 7.50 k/uL [facility] Neutrophils/100 WBC (Bld) 64.6 % [facility] Nucleated RBC (Bld) [#/Vol] 10*3/uL <0.01 k/uL [facility] Nucleated RBC/100 WBC (Bld) [Ratio] 0.0 /100 WBC [facility] Platelet mean volume (Bld) [Entitic vol] 9.1 fL 9.0 - 12.7 fL [facility] Platelets (Bld) [#/Vol] 164 10*3/uL 150 - 400 k/uL [facility] RBC (Bld) [#/Vol] 2.54 10*6/uL Low 3.90 - 5.2 0 m/uL [facility] WBC (Bld) [#/Vol] 5.20 10*3/uL 3.70 - 11.00 k/uL [facility] INR FINGERSTICK B/Oon 2021 INR Coag (Bld) [Relative time] 2.1 (biotel) [facility] Quality Check No [facility] INR FINGERSTICK B/Oon 2021 INR Coag (Bld) [Relative time] 4.8 {INR} [facility] CNOVon 09-26-2021 CNOV Office Visit (CRISTINE ) CHRISTIAN LANDRUM ([id number]) 1935 F Date Time Provider Department 09/26/21 [...] UTIs, used to see Dr. Burris at [facility]. Prior colovesical fistula, s/p sigmoid colectomy. [...] >=60 mL/min/1.73m? 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 Normal [facility] UA DIP, URINE (POC)on 2021 BILIRUBIN UA (POCT) Negative Negative [facility] CLARITY UA (POCT) Clear [facility] COLOR UA (POCT) Yellow [facility] GLUCOSE UA (POCT) Negative Negative mg/dL [facility] HEMOGLOBIN/BLOOD UA (POCT) Negative Negative [facility] KETONE UA (POCT) Negative Negative mg/dL [facility] LEUKOCYTES UA (POCT) Negative Negative [facility] NITRITE UA (POCT) Negative Negative [facility] PH UA (POCT) 6.5 4.5 - 8.0 [facility] Protein Ql (U) Negative Negative mg/dL [facility] SPECIFIC GRAVITY UA (POCT) 1.010 1.005 - 1.030 [facility] UROBILINOGEN UA (POCT) 0.2 E.U./dL [facility] l E.U./dL [facility] UA DIP, URINE (POC)on 2021 BILIRUBIN UA (POCT) Negative Negative [facility] CLARITY UA (POCT) Cloudy [facility] COLOR UA (POCT) Yellow [facility] GLUCOSE UA (POCT) Negative Negative mg/dL [facility] HEMOGLOBIN/BLOOD UA (POCT) Trace-intact Abnormal Negative [facility] KETONE UA (POCT) Negative Negative mg/dL [facility] LEUKOCYTES UA (POCT) Large Abnormal Negative [facility] NITRITE UA (POCT) Negative Negative [facility] UA (POCT) 6.0 4.5 - 8.0 [facility] Protein Ql (U) Negative Negative mg/dL [facility] SPECIFIC GRAVITY UA (POCT) 1.015 1.005 - 1.030 [facility] UROBILINOGEN UA (POCT) 0.2 E.U./dL [facility] l E.U./dL [facility] Absolute lymphocyte counton 08-26-2021 Lymphocytes Auto (Unsp spec) [#/Vol] 1.15 10*3/uL 0.83-4.51 [facility] Work Phone: Basophil percentageon 2021 Basophils/100 WBC (Bld) 0.4 % 0-1 [facility] Work Phone: Chloride [Moles/Vol] 109 mmol/L 98-[address] [facility] Work Phone: Eosinophils/100 WBC (Bld) 1.9 % 0-5 [facility] Work Phone: Glucose [Mass/Vol] 111 mg/dL 74-106 [facility] Work Phone: Comment on above: Fasting Glucose resu lt from 100 to 125 mg/dL suggests IMPAIRED HOMEOSTASIS per A.D.A. criteria. Neutrophils (Bld) [#/Vol] 3.3 10*3/uL 2.0-7.7 [facility] Work Phone: Neutrophils/100 WBC (Bld) 61.2 % 47-70 [facility] Work Phone: Potassium [Moles/Vol] 4.1 mmol/L 3.5-5.1 [facility] Work Phone: Sodium [Moles/Vol] 140 mmol/L 136-145 [facility] Work Phone: WBC (Bld) [#/Vol] 5.3 10*3/uL 4.4-11.0 [facility] Work Phone: Blood erythrocytes count (nu mber/volume)on 08-26-2021 RBC (Bld) [#/Vol] 2.86 10*6/uL 4.2-5.4 [facility] Work Phone: [phone] Blood hemoglobin measurement (mass/volume)on 08-26-2021 Hemoglobin (Bld) [Mass/Vol] 8.0 g/dL 12.0-15.0 [facility] Work Phone: [phone] Blood lymphocytes/100 leukoc yteson 08-26-2021 Lymphocytes/100 WBC (Bld) 21.5 % 19-41 [facility] Work Phone: Blood monocytes/100 leukocyt eson 08-26-2021 Monocytes/100 WBC (Bld) 14.6 % 0-10 [facility] Work Phone: Blood platelet mean volumeon 08-26-2021 Platelet mean volume (Bld) [Entitic vol] 9.3 fL 6.2-12.0 [facility] Work Phone: [phone] Determination of erythrocyte mean corpuscular volume (MCV)on 08-26-2021 MCV (RBC) [Entitic vol] 90.2 fL 81-99 [facility] Work Phone: Hematocrit Auto (Bld) [Volum e fraction]on 08-26-2021 Hematocrit (Bld) [Volume fraction] 25.8 % 37-47 [facility] Work Phone: [phone] INR in Blood by Coagulation assayon 08-26-2021 INR Coag (Bld) [Relative time] 2.9 {INR} [facility] Work Phone: Laboratory - Chemistry and C hemistry - challengeon 08-26-2021 CO2 [Moles/Vol] 28.0 mmol/L 21.0-32.0 [facility] Work Phone: [phone] Urea nitrogen/Creatinine [Mass ratio] 15.6 mg/mg 10-20 [facility] Work Phone: Laboratory - Coagulationon 0 08-26-2021 PT Coag (PPP) [Time] 29.6 s 11.7-14.[address] [facility] Work Phone: [phone] Laboratory - Hematology and Cell countson 08-26-2021 Erythrocyte distribution width (RBC) [Entitic vol] 56.8 fL 35.1-43.9 [facility] Work Phone: Erythrocyte distribution width (RBC) [Ratio] 17.1 % 11.6-14.6 [facility] Work Phone: Immature granulocytes/100 WBC (Bld) 0.400 % 0.0-0.9 [facility] Work Phone: Comment on above: IG% - Immature Granu locytes (promyelocytes, myelocytes and metamyelocytes) > 1% indicates that a LEFT SHIFT is Present. MCH (RBC) [Entitic mass] 28.0 pg 27.0-32.0 [facility] Work Phone: Nucleated RBC/100 WBC (Bld) [Ratio] 0 % 0-5 [facility] Work Phone: MCHC Auto (RBC) [Mass/Vol]on 08-26-2021 MCHC (RBC) [Mass/Vol] 31.0 g/dL 32-36 [facility] Work Phone: No Panel Informationon 08-26 Estimated Creatinine Clearance Calc 38.50 ml/min [facility] Work Phone: Estimated GFR (MDRD) Amer 92 mL/min >60 [facility] Work Phone: Comment on above: GFR Calc Estimated GFR (MDRD) Non-Af Amer 76 mL/min >60 [facility] Work Phone: Comment on above: Non- GFR Calc Platelets bldon 08-26-2021 Platelets (Bld) [#/Vol] 155 10*3/uL 150-450 [facility] Work Phone: Serum or plasma calcium yonatan urement (mass/volume)on 08-26-2021 Calcium [Mass/Vol] 8.7 mg/dL 8.5-10.1 [facility] Work Phone: Serum or plasma creatinine m easurement (mass/volume)on 08-26-2021 Creatinine [Mass/Vol] 0.77 mg/dL 0.55-1.02 [facility] Work Phone: Comment on above: The validity of the calculated GFR & GFRAA in patients over 70 years has not been determined. Clinical correlation is essential. Serum or plasma urea nitroge n measurement (mass/volume)on 08-26-2021 Urea nitrogen [Mass/Vol] 12 mg/dL 7-18 [facility] Work Phone: Thin prep Papanicolaou smear with manual screeningon 08-26-2021 Thin prep Papanicolaou smear with manual screening 3 5-15 [facility] Work Phone: Basophil percentageon 2021 WBC (Bld) [#/Vol] 6.6 10*3/uL 4.4-11.0 [facility] Work Phone: Blood erythrocytes count (nu mber/volume)on 08-23-2021 RBC (Bld) [#/Vol] 2.94 10*6/uL 4.2-5.4 [facility] Work Phone: Blood hemoglobin measurement (mass/volume)on 08-23-2021 Hemoglobin (Bld) [Mass/Vol] 8.2 g/dL 12.0-15.0 [facility] Work Phone: Blood platelet mean volumeon 08-23-2021 Platelet mean volume (Bld) [Entitic vol] 9.3 fL 6.2-12.0 [facility] Work Phone: Determination of erythrocyte mean corpuscular volume (MCV)on 08-23-2021 MCV (RBC) [Entitic vol] 89.8 fL 81-99 [facility] Work Phone: Hematocrit Auto (Bld) [Volum e fraction]on 08-23-2021 Hematocrit (Bld) [Volume fraction] 26.4 % 37-47 [facility] Work Phone: INR in Blood by Coagulation assayon 08-23-2021 INR Coag (Bld) [Relative time] 2.8 {INR} [facility] Work Phone: Laboratory - Coagulationon 0 08-23-2021 aPTT Coag (Bld) [Time] 46.5 s 24.1-36.2 [facility] Work Phone: [phone] PT Coag (PPP) [Time] 28.8 s 11.7-14.[address] [facility] Work Phone: Laboratory - Hematology and Cell countson 08-23-2021 Erythrocyte distribution width (RBC) [Entitic vol] 56.3 fL 35.1-43.9 [facility] Work Phone: Erythrocyte distribution width (RBC) [Ratio] 17.0 % 11.6-14.6 [facility] Work Phone: MCH (RBC) [Entitic mass] 27.9 pg 27.0-32.0 [facility] Work Phone: MCHC Auto (RBC) [Mass/Vol]on 08-23-2021 MCHC (RBC) [Mass/Vol] 31.1 g/dL 32-36 [facility] Work Phone: Platelets bldon 08-23-2021 Platelets (Bld) [#/Vol] 160 10*3/uL 150-450 [facility] Work Phone: CBC panel Auto (Bld)on 08-13 Erythrocyte distribution width (RBC) [Ratio] 16.9 % High 11.5-15.0 [facility] Comment on above: Order Comment: Speci men Type: BLOOD SPECIMENOrdering Facility: [facility] Address: [address] [address] Performed By: #### 5 8410-2 ####[facility] LABORATORYCLIA [id number] [address] [facility] Hematocrit (Bld) [Volume fraction] 25.6 % Low 36.0-46.0 [facility] Comment on above: Order Comment: Speci men Type: BLOOD SPECIMENOrdering Facility: [facility] Address: [address] [address] Performed By: #### 5 8410-2 ####[facility] LABORATORYCLIA [id number] [address] [facility] Hemoglobin (Bld) [Mass/Vol] 8.2 g/dL Low 11.5-15.5 [facility] Comment on above: Order Comment: Speci men Type: BLOOD SPECIMENOrdering Facility: [facility] Address: [address] [place] [address] Performed By: #### 5 8410-2 ####ROD[facility] LABORATORYCLIA [id number] [address] MCH (RBC) [Entitic mass] 28.4 pg Normal 26.0-34.0 [facility] Comment on above: Order Comment: Speci men Type: BLOOD SPECIMENOrdering Facility: [facility] Address: [address] [place] [address] Performed By: #### 5 8410-2 ####[facility]OD[facility] LABORATORYCLIA [id number] [address] MCHC (RBC) [Mass/Vol] 32.0 g/dL Normal 30.5-36.0 [facility] Comment on above: Order Comment: Speci men Type: BLOOD SPECIMENOrdering Facility: [facility] Address: [address] [place] [address] Performed By: #### 5 8410-2 ####[facility] LABORATORYCLIA [id number] [address] MCV (RBC) [Entitic vol] 88.6 fL Normal 80.0-100.0 [facility] Comment on above: Order Comment: Speci men Type: BLOOD SPECIMENOrdering Facility: [facility] Address: [address] [place] [address] Performed By: #### 5 8410-2 ####[facility] LABORATORYCLIA [id number] [address] Nucleated RBC (Bld) [#/Vol] 10*3/uL Normal <0.01 [facility] Comment on above: Order Comment: Speci men Type: BLOOD SPECIMENOrdering Facility: [facility] Address: [address] [address] Performed By: #### 5 8410-2 ####ROD[facility] LABORATORYCLIA [id number] [address] Platelet mean volume (Bld) [Entitic vol] 9.3 fL Normal 9.0-12.7 [facility] Comment on above: Order Comment: Speci men Type: BLOOD SPECIMENOrdering Facility: [facility] Address: [address] [place] [address] Performed By: #### 5 8410-2 ####RODAS LABORATORYCLIA [id number] [address] [place] Platelets (Bld) [#/Vol] 108 10*3/uL Low 150-400 [facility] Comment on above: Order Comment: Speci men Type: BLOOD SPECIMENOrdering Facility: [facility] Address: [address] [place] [address] Performed By: #### 5 8410-2 ####ROD[facility] LABORATORYCLIA [id number] [address] RBC (Bld) [#/Vol] 2.89 10*6/uL Low 3.90-5.20 [facility] Comment on above: Order Comment: Speci men Type: BLOOD SPECIMENOrdering Facility: [facility] Address: [address] [place] [address] Performed By: #### 5 8410-2 ####RODAS LABORATORYCLIA [id number] [address] WBC (Bld) [#/Vol] 5.19 10*3/uL Normal 3.70-11.00 [facility] Comment on above: Order Comment: Speci men Type: BLOOD SPECIMENOrdering Facility: [facility] Address: [address] [place], [place] [address] Performed By: #### 5 8410-2 ####RODAS LABORATORYCLIA [id number] [address] [place] CNDSon 08-13-2021 [facility] HNO ID: [id number] Author: Alisha Velásquez PA-C Service: Hospital Medicine Author Type: Physician Senior Clinical Research Associate Type: Discharge Summary Filed: 08/13/2021 1:52 PM [...] Attending Provider: Catarina Ragsdale MD Primary Service: [place] [address] Physician Senior Clinical Research Associate: Alisha Velásquez PA-C Consulting: Samuel Qiu MD [...] DISPOSITION: Ho (more content not included)... Normal [facility] Comprehensive metabolic 2000 panelon 08-13-2021 Albumin [Mass/Vol] 2.9 g/dL Low 3.9-4.9 [facility] Comment on above: Order Comment: Speci men Type: BLOOD SPECIMEN Ordering Facility: [facility] Address: [address] [place] [address] Performed By: #### 5 7021-8 #### [facility] CLIA [id number] [address] ALP [Catalytic activity/Vol] 71 U/L Normal 34-123 [facility] Comment on above: Order Comment: Speci men Type: BLOOD SPECIMEN Ordering Facility: [facility] Address: [address] [place] [address] Performed By: #### 5 7021-8 #### [facility] CLIA [id number] [address] [place] [facility] ALT [Catalytic activity/Vol] 14 U/L Normal 7-38 [facility] Comment on above: Order Comment: Speci men Type: BLOOD SPECIMEN Ordering Facility: [facility] Address: [address] [address] Performed By: #### 5 7021-8 #### [facility] CLIA [id number] 1000 [place] [address] [place] Anion gap [Moles/Vol] 9 mmol/L Normal 9-18 [facility] Comment on above: Order Comment: Speci men Type: BLOOD SPECIMEN Ordering Facility: [facility] Address: [address] [place] [address] Performed By: #### 5 7021-8 #### [facility] CLIA [id number] [address] [place] [address] [place] AST [Catalytic activity/Vol] 28 U/L Normal 13-35 [facility] Comment on above: Order Comment: Speci men Type: BLOOD SPECIMEN Ordering Facility: [facility] Address: [address] [place] [address] Performed By: #### 5 7021-8 #### [facility] CLIA [id number] [address] [place] Bilirubin [Mass/Vol] 0.5 mg/dL Normal 0.2-1.3 [facility] Comment on above: Order Comment: Speci men Type: BLOOD SPECIMEN Ordering Facility: [facility] Address: [address] [place] [address] Performed By: #### 5 7021-8 #### [facility] CLIA [id number] [address] [place] Calcium [Mass/Vol] 8.5 mg/dL Normal 8.5-10.2 [facility] Comment on above: Order Comment: Speci men Type: BLOOD SPECIMEN Ordering Facility: [facility] Address: [address] [place] [address] Performed By: #### 5 7021-8 #### [facility] CLIA [id number] [address] [place] Chloride [Moles/Vol] 110 mmol/L High 97-105 [facility] Comment on above: Order Comment: Speci men Type: BLOOD SPECIMEN Ordering Facility: [facility] Address: [address] [place] [address] Performed By: #### 5 7021-8 #### [facility] CLIA [id number] [address] [place] [address] [place] CO2 [Moles/Vol] 23 mmol/L Normal 22-30 [facility] Comment on above: Order Comment: Olga coley Type: BLOOD SPECIMEN Ordering Facility: [facility] Address: [address] [address] Performed By: #### 5 7021-8 #### [facility] CLIA [id number] [address] STATES OF [facility] Creatinine [Mass/Vol] 0.74 mg/dL Normal 0.58-0.96 [facility] Comment on above: Order Comment: Olga coley Type: BLOOD SPECIMEN Ordering Facility: [facility] Address: [address] [place] [address] Performed By: #### 5 7021-8 #### [facility] CLIA [id number] [address] [place] ESTIMATED GLOMERULAR FILTRATION RATE 79 mL/min/1.73m??? Normal >=60 [facility] Comment on above: Order Comment: Olga coley Type: BLOOD SPECIMEN Ordering Facility: [facility] Address: [address] [place] [address] Result Comment: Huma mated Glomerular Filtration Rate [...] GFR. Performed By: #### 5 7021-8 #### [facility] CLIA [id number] [address] [place] Glucose [Mass/Vol] 126 mg/dL High 74-99 [facility] Comment on above: Order Comment: Olga coley Type: BLOOD SPECIMEN Ordering Facility: [facility] Address: [address] [address] Result Comment: The [place] Diabetes Association (ADA) provides guidance for cutoff [...] Medical Care in Diabetes 2016, [place] [employer]. Diabetes Care. 2016.39(Suppl 1). Performed By: #### 5 7021-8 #### [facility] CLIA [id number] [address] Potassium [Moles/Vol] 4.0 mmol/L Normal 3.7-5.1 [facility] Comment on above: Order Comment: Olga coley Type: BLOOD SPECIMEN Ordering Facility: [facility] Address: [address] [place] [address] Performed By: #### 5 7021-8 #### [facility] CLIA [id number] [address] [place] Protein [Mass/Vol] 6.5 g/dL Normal 6.3-8.0 [facility] Comment on above: Order Comment: Ifrahi vianca Type: BLOOD SPECIMEN Ordering Facility: [facility] Address: [address] [place] [address] Performed By: #### 5 7021-8 #### [facility] CLIA [id number] [address] Sodium [Moles/Vol] 142 mmol/L Normal 136-144 [facility] Comment on above: Order Comment: Ifrahi men Type: BLOOD SPECIMEN Ordering Facility: [facility] Address: [address] [place] [address] Performed By: #### 5 7021-8 #### [facility] CLIA [id number] [address] [place] Urea nitrogen [Mass/Vol] 11 mg/dL Normal 7-21 [facility] Comment on above: Order Comment: Ifrahi vianca Type: BLOOD SPECIMEN Ordering Facility: [facility] Address: [address] [place] [address] Performed By: #### 5 7021-8 #### [facility] CLIA [id number] [address] [place] [address] [place] Magnesium SerPl-mCncon 08-13 Magnesium [Mass/Vol] 2.1 mg/dL Normal 1.7-2.3 [facility] Comment on above: Order Comment: Olga coley Type: BLOOD SPECIMEN Ordering Facility: [facility] Address: [address] [place] [address] Performed By: #### 5 7021-8 #### [facility] CLIA [id number] [address] [place] PT panel Coag (PPP)on 2021 INR Coag (PPP) [Relative time] 2.0 {INR} High 0.9-1.3 [facility] Comment on above: Order Comment: Olga coley Type: BLOOD SPECIMENOrdering Facility: [facility] Address: [address] [place] [address] Result Comment: Maricruz min K Antagonist (VKA) Therapeutic Range: INR 2 to 3 (Target INR of 2.5) Note: For patients treated with VKA drugs, such as warfarin, the [place] [employer] 2012 Guideline recommends [...] Chest 2012, 141:7S-47S Geri RA, et al. [facility] 2017, 70: 252-289 Performed By: #### 3 4528-0 ####[facility] [id number] [address] [place] PT Coag (PPP) [Time] 20.1 s High 9.7-13.0 [facility] Comment on above: Order Comment: Speci vianca Type: BLOOD SPECIMENOrdering Facility: [facility] Address: [address] [address] Performed By: #### 3 4528-0 ####[facility] [id number] [place] [address] [place] Bacteria Bld Culton 08-13-19 22 Bacteria identified Cx Nom (Bld) CULTURE, BLOOD: No growth 5 days [facility] Comment on above: Performed By: #### 6 00-7 ####[facility] [id number] [address] [place] Bacteria identified Cx Nom (Bld) CULTURE, BLOOD: No growth 5 days [facility] Comment on above: Performed By: #### 6 00-7 ####[facility] LABCLIA [id number] [address] [place] Bacteria Ur Culton 2 [...] F Susceptible <=40 , Resistant >40 Abnormal [facility] Comment on above: Performed By: #### 6 30-4 ####[facility] LABCLIA [id number] [address] [place] CBC W Auto Differential pane l (Bld)on 08-12-2021 Basophils (Bld) [#/Vol] 10*3/uL Normal <0.11 [facility] Comment on above: Order Comment: Speci men Type: BLOOD SPECIMEN Ordering Facility: [facility] Address: [address] [place] [address] Performed By: #### 5 7021-8 #### [facility] CLIA [id number] [address] [place] [facility] Basophils/100 WBC (Bld) 0.4 % Normal [facility] Comment on above: Order Comment: Speci men Type: BLOOD SPECIMEN Ordering Facility: [facility] Address: [address] [place] [address] Performed By: #### 5 7021-8 #### [facility] CLIA [id number] [address] [place] Differential cell count method Nom (Bld) Auto Normal [facility] Comment on above: Order Comment: Speci men Type: BLOOD SPECIMEN Ordering Facility: [facility] Address: [address] [place] [address] Performed By: #### 5 7021-8 #### [facility] CLIA [id number] [address] Eosinophils (Bld) [#/Vol] 0.07 10*3/uL Normal <0.46 [facility] Comment on above: Order Comment: Speci men Type: BLOOD SPECIMEN Ordering Facility: [facility] Address: [address] [place] [address] Performed By: #### 5 7021-8 #### [facility] CLIA [id number] [address] Eosinophils/100 WBC (Bld) 1.4 % Normal [facility] Comment on above: Order Comment: Speci men Type: BLOOD SPECIMEN Ordering Facility: [facility] Address: [address] [place] [address] Performed By: #### 5 7021-8 #### [facility] CLIA [id number] [address] Erythrocyte distribution width (RBC) [Ratio] 16.9 % High 11.5-15.0 [facility] Comment on above: Order Comment: Speci men Type: BLOOD SPECIMEN Ordering Facility: [facility] Address: [address] [place] [address] Performed By: #### 5 7021-8 #### [facility] CLIA [id number] [address] Hematocrit (Bld) [Volume fraction] 25.7 % Low 36.0-46.0 [facility] Comment on above: Order Comment: Speci men Type: BLOOD SPECIMEN Ordering Facility: [facility] Address: [address] [place] [address] Performed By: #### 5 7021-8 #### [facility] CLIA [id number] [address] [place] Hemoglobin (Bld) [Mass/Vol] 8.1 g/dL Low 11.5-15.5 [facility] Comment on above: Order Comment: Speci men Type: BLOOD SPECIMEN Ordering Facility: [facility] Address: [address] [place] [address] Performed By: #### 5 7021-8 #### [facility] CLIA [id number] [address] OF [facility] IMMATURE GRAN % 0.4 % Normal [facility] Comment on above: Order Comment: Speci men Type: BLOOD SPECIMEN Ordering Facility: [facility] Address: [address] [place] [address] Performed By: #### 5 7021-8 #### [facility] CLIA [id number] [address] IMMATURE GRAN ABS <0.03 Normal <0.10 [facility] Comment on above: Order Comment: Speci men Type: BLOOD SPECIMEN Ordering Facility: [facility] Address: [address] [place] [address] Performed By: #### 5 7021-8 #### [facility] CLIA [id number] [address] [place] Lymphocytes (Bld) [#/Vol] 1.28 10*3/uL Normal 1.00-4.00 [facility] Comment on above: Order Comment: Speci men Type: BLOOD SPECIMEN Ordering Facility: [facility] Address: [address] [place] [address] Performed By: #### 5 7021-8 #### [facility] CLIA [id number] [address] Lymphocytes/100 WBC (Bld) 25.5 % Normal [facility] Comment on above: Order Comment: Speci men Type: BLOOD SPECIMEN Ordering Facility: [facility] Address: [address] [place] [address] Performed By: #### 5 7021-8 #### [facility] CLIA [id number] [address] [place] MCH (RBC) [Entitic mass] 28.7 pg Normal 26.0-34.0 [facility] Comment on above: Order Comment: Speci men Type: BLOOD SPECIMEN Ordering Facility: [facility] Address: [address] [place] [address] Performed By: #### 5 7021-8 #### [facility] CLIA [id number] [address] MCHC (RBC) [Mass/Vol] 31.5 g/dL Normal 30.5-36.0 [facility] Comment on above: Order Comment: Speci men Type: BLOOD SPECIMEN Ordering Facility: [facility] Address: [address] [place] [address] Performed By: #### 5 7021-8 #### [facility] CLIA [id number] [address] MCV (RBC) [Entitic vol] 91.1 fL Normal 80.0-100.0 [facility] Comment on above: Order Comment: Speci men Type: BLOOD SPECIMEN Ordering Facility: [facility] Address: [address] [place] [address] Performed By: #### 5 7021-8 #### [facility] CLIA [id number] [address] Monocytes (Bld) [#/Vol] 0.75 10*3/uL Normal <0.87 [facility] Comment on above: Order Comment: Speci men Type: BLOOD SPECIMEN Ordering Facility: [facility] Address: [address] [place] [address] Performed By: #### 5 7021-8 #### [facility] CLIA [id number] [address] Monocytes/100 WBC (Bld) 15.0 % Normal [facility] Comment on above: Order Comment: Speci men Type: BLOOD SPECIMEN Ordering Facility: [facility] Address: [address] [place] [address] Performed By: #### 5 7021-8 #### [facility] CLIA [id number] [address] [place] [address] [place] Neutrophils (Bld) [#/Vol] 2.87 10*3/uL Normal 1.45-7.50 [facility] Comment on above: Order Comment: Speci men Type: BLOOD SPECIMEN Ordering Facility: [facility] Address: [address] [place] [address] Performed By: #### 5 7021-8 #### [facility] CLIA [id number] [address] [place] [address] [place] Neutrophils/100 WBC (Bld) 57.3 % Normal [facility] Comment on above: Order Comment: Speci men Type: BLOOD SPECIMEN Ordering Facility: [facility] Address: [address] [place] [address] Performed By: #### 5 7021-8 #### [facility] CLIA [id number] [address] [place] [address] [place] Nucleated RBC (Bld) [#/Vol] 10*3/uL Normal <0.01 [facility] Comment on above: Order Comment: Speci men Type: BLOOD SPECIMEN Ordering Facility: [facility] Address: [address] [place] [address] Performed By: #### 5 7021-8 #### [facility] CLIA [id number] 1000 [place] [address] [place] Nucleated RBC/100 WBC (Bld) [Ratio] 0.0 /100 WBC Normal [facility] Comment on above: Order Comment: Speci men Type: BLOOD SPECIMEN Ordering Facility: [facility] Address: [address] [place] [address] Performed By: #### 5 7021-8 #### [facility] CLIA [id number] [address] [place] [address] [place] Platelet mean volume (Bld) [Entitic vol] 9.6 fL Normal 9.0-12.7 [facility] Comment on above: Order Comment: Speci men Type: BLOOD SPECIMEN Ordering Facility: [facility] Address: [address] [place] [address] Performed By: #### 5 7021-8 #### [facility] CLIA [id number] [address] Platelets (Bld) [#/Vol] 116 10*3/uL Low 150-400 [facility] Comment on above: Order Comment: Speci men Type: BLOOD SPECIMEN Ordering Facility: [facility] Address: [address] [place] [address] Performed By: #### 5 7021-8 #### [facility] CLIA [id number] [address] [place] RBC (Bld) [#/Vol] 2.82 10*6/uL Low 3.90-5.20 [facility] Comment on above: Order Comment: Speci men Type: BLOOD SPECIMEN Ordering Facility: [facility] Address: [address] [place] [address] Performed By: #### 5 7021-8 #### [facility] CLIA [id number] [address] OF [facility] WBC (Bld) [#/Vol] 5.01 10*3/uL Normal 3.70-11.00 [facility] Comment on above: Order Comment: Speci men Type: BLOOD SPECIMEN Ordering Facility: [facility] Address: [address] [place] [address] Performed By: #### 5 7021-8 #### [facility] CLIA [id number] [address] OF [facility] Comprehensive metabolic 2000 panelon 08-12-2021 Albumin [Mass/Vol] 3.1 g/dL Low 3.9-4.9 [facility] Comment on above: Order Comment: Speci men Type: BLOOD SPECIMENOrdering Facility: [facility] Address: [address] [place] [address] Performed By: #### P ADAN, 53941-1 ####[facility] [id number] [address] ALP [Catalytic activity/Vol] 78 U/L Normal 34-123 [facility] Comment on above: Order Comment: Speci men Type: BLOOD SPECIMENOrdering Facility: [facility] Address: [address] [place] [address] Performed By: #### P ADAN, 98452-4 ####[facility] [id number] [place] [address] [place] ALT [Catalytic activity/Vol] 15 U/L Normal 7-38 [facility] Comment on above: Order Comment: Speci men Type: BLOOD SPECIMENOrdering Facility: [facility] Address: [address] [address] Performed By: #### P ADAN, 47079-5 ####[facility] [id number] [place] [address] [place] Anion gap [Moles/Vol] 8 mmol/L Low 9-18 [facility] Comment on above: Order Comment: Speci men Type: BLOOD SPECIMENOrdering Facility: [facility] Address: [address] [address] Performed By: #### Jyoti ARELLANO, 54247-9 ####[facility] [id number] [address] [place] AST [Catalytic activity/Vol] 31 U/L Normal 13-35 [facility] Comment on above: Order Comment: Speci men Type: BLOOD SPECIMENOrdering Facility: [facility] Address: [address] [place] [address] Performed By: #### Jyoti ARELLANO, 23344-8 ####[facility] [id number] [address] [place] Bilirubin [Mass/Vol] 0.6 mg/dL Normal 0.2-1.3 [facility] Comment on above: Order Comment: Speci men Type: BLOOD SPECIMENOrdering Facility: [facility] Address: [address] [address] Performed By: #### P ADAN, 17559-8 ####[facility] [id number] [address] [place] Calcium [Mass/Vol] 8.7 mg/dL Normal 8.5-10.2 [facility] Comment on above: Order Comment: Speci men Type: BLOOD SPECIMENOrdering Facility: [facility] Address: [address] [place] [address] Performed By: #### P ROCAL, 07291-4 ####[facility]ORY[facility]IA [id number] [place] [address] [place] [facility] Chloride [Moles/Vol] 106 mmol/L High 97-105 [facility] Comment on above: Order Comment: Speci men Type: BLOOD SPECIMENOrdering Facility: [facility] Address: [address] [place] [address] Performed By: #### P ROCAL, 70969-1 ####[facility] [id number] [place] [address] [place] CO2 [Moles/Vol] 24 mmol/L Normal 22-30 [facility] Comment on above: Order Comment: Speci men Type: BLOOD SPECIMENOrdering Facility: [facility] Address: [address] [place] [address] Performed By: #### P ROCAL, 90012-3 ####[facility]ORY[facility]IA [id number] [place] [address] [place] Creatinine [Mass/Vol] 0.78 mg/dL Normal 0.58-0.96 [facility] Comment on above: Order Comment: Speci men Type: BLOOD SPECIMENOrdering Facility: [facility] Address: [address] [place] [address] Performed By: #### P ROCAL, 59910-6 ####[facility]ORY[facility]IA [id number] [address] ESTIMATED GLOMERULAR FILTRATION RATE 75 mL/min/1.73m??? Normal >=60 [facility] Comment on above: Order Comment: Speci men Type: BLOOD SPECIMENOrdering Facility: [facility] Address: [address] [place] [address] Result Comment: Huma mated Glomerular Filtration Rate [...] actual GFR. Performed By: #### Jyoti ARELLANO 76085-3 ####[facility]ORY[facility]IA [id number] [place] [address] [place] Glucose [Mass/Vol] 113 mg/dL High 74-99 [facility] Comment on above: Order Comment: Olga coley Type: BLOOD SPECIMENOrdering Facility: [facility] Address: [address] [place] [address] Result Comment: The [place] Diabetes Association (ADA) provides guidance for cutoff [...] Medical Care in Diabetes 2016, [place] [employer]. Diabetes Care. 2016.39(Suppl 1). Performed By: #### Jyoti ARELLANO 90066-6 ####[facility]IA [id number] [place] [address] [place] Potassium [Moles/Vol] 3.6 mmol/L Low 3.7-5.1 [facility] Comment on above: Order Comment: Olga coley Type: BLOOD SPECIMENOrdering Facility: [facility] Address: [address] [address] Performed By: #### Jyoti ARELLANO 35538-2 ####[facility]ORYCLIA [id number] [place] [id number] [place] Protein [Mass/Vol] 7.0 g/dL Normal 6.3-8.0 [facility] Comment on above: Order Comment: Olga coley Type: BLOOD SPECIMENOrdering Facility: [facility] Address: [address] [address] Performed By: #### Jyoti ARELLANO 04538-2 ####[facility]ORYCL[facility] [id number] [address] [place] Sodium [Moles/Vol] 138 mmol/L Normal 136-144 [facility] Comment on above: Order Comment: Speci men Type: BLOOD SPECIMENOrdering Facility: [facility] Address: [address] [place] [address] Performed By: #### P ROCELBERT, 76675-6 ####[facility]ORYCLIA [id number] [address] [place] Urea nitrogen [Mass/Vol] 13 mg/dL Normal 7-21 [facility] Comment on above: Order Comment: Speci men Type: BLOOD SPECIMENOrdering Facility: [facility] Address: [address] [place] [address] Performed By: #### P ADAN, 87905-6 ####[facility]ORYCLIA [id number] [address] OF [facility] ED NOTEon 08-12-2021 ED NOTE HNO ID: [id number] Author: Madonna Dimas RN Service: ? Author Type: Registered Nurse Type: ED Notes Filed: 08/12/2021 7:37 PM Note Text: Pt report was called to [facility] ED NOTE HNO ID: [id number] Author: Madonna Dimas RN Service: ? Author Type: Registered Nurse Type: ED Notes Filed: 08/12/2021 7:32 PM Note Text: Pt is ambulatory Family has been bedside [facility] ED NOTE HNO ID: [id number] Author: Madonna Dimas RN Service: ? Author Type: Registered Nurse Type: ED Notes Filed: 08/12/2021 6:23 PM Note Text: Waiting for a bed assignment in the [facility] ED NOTE HNO ID: [id number] Author: Madonna Dimas RN Service: ? Author Type: Registered Nurse Type: ED Notes Filed: 08/12/2021 3:42 PM Note Text: Pt report was received [facility] ED NOTE HNO ID: [id number] Author: Marcela Sandoval RN Service: Nursing Author [...] started with a fever and hematuria today. [facility] ED PROV NOTEon 08-12-2021 ED PROV NOTE HNO ID: [id number] Author: Page Dudley MD Service: ? Author [...] She was admitted earlier this month at [facility] for sepsis, seemingly from a UTI. [...] REMOVE TONSILS/ADENOIDS,<12 (more content not included)... Normal [facility] Gas and Carbon monoxide pane l (BldV)on 08-12-2021 Base excess Calc (BldV) [Moles/Vol] 0 mmol/L Normal 0-2 [facility] Comment on above: Order Comment: Speci men Type: VENOUS BLOOD SPECIMENOrdering Facility: [facility] Address: [address] [address] Performed By: #### 2 4344-4 ####[facility] RESPIRATORYIA [id number] [place] [address] RESPIRATORY [id number] [address] [address] Carboxyhemoglobin (BldV) [Mass fraction] 1.0 % Normal 0.0-2.0 [facility] Comment on above: Order Comment: Speci men Type: VENOUS BLOOD SPECIMENOrdering Facility: [facility] Address: [address] [address] Performed By: #### 2 4344-4 ####ROTAN RESPIRATORYIA [id number] [place] [address] RESPIRATORY [id number] [address] [address] CO2 (BldV) [Partial pressure] 39 mm[Hg] Low 42-55 [facility] Comment on above: Order Comment: Speci men Type: VENOUS BLOOD SPECIMENOrdering Facility: [facility] Address: [address] [address] Performed By: #### 2 4344-4 ####[facility] RESPIRATORYCLIA [id number] [facility] RESPIRATORY [id number] [address] [address] CO2 adjusted to patient's actual temperature (BldV) [Partial pressure] Normal [facility] Comment on above: Order Comment: Speci men Type: VENOUS BLOOD SPECIMENOrdering Facility: [facility] Address: [address] [place] [address] Performed By: #### 2 4344-4 ####[facility] RESPIRATORYCLIA [id number] [facility] RESPIRATORY [id number] [address] [address] HCO3 (Bld) [Moles/Vol] 24 mmol/L Normal 24-28 [facility] Comment on above: Order Comment: Speci men Type: VENOUS BLOOD SPECIMENOrdering Facility: [facility] Address: [address] [place] [address] Performed By: #### 2 4344-4 ####[facility]ORYR[facility] [id number] [facility] RESPIRATORY [id number] [place] [address] Hemoglobin (Bld) [Mass/Vol] 15.3 g/dL Normal 11.5-15.5 [facility] Comment on above: Order Comment: Speci men Type: VENOUS BLOOD SPECIMENOrdering Facility: [facility] Address: [address] [place] [address] Performed By: #### 2 4344-4 ####ROTAN RESPIRATORYIA [id number] [facility] RESPIRATORY [id number] [address] [address] Lactate [Moles/Vol] 1.9 mmol/L Normal 0.5-2.2 [facility] Comment on above: Order Comment: Speci men Type: VENOUS BLOOD SPECIMENOrdering Facility: [facility] Address: [address] [place] [address] Performed By: #### 2 4344-4 ####[facility]ATORYROCKINGH[facility] [id number] [facility] RESPIRATORY [id number] [address] [address] Methemoglobin (Bld) [Mass fraction] % Normal 0.0-1.5 [facility] Comment on above: Order Comment: Speci men Type: VENOUS BLOOD SPECIMENOrdering Facility: [facility] Address: [address] Performed By: #### 2 4344-4 ####[facility] RESPIRATORYCLIA [id number] [facility] RESPIRATORY [id number] [address] [address] O2 THERAPY RA=Room Air Normal [facility] Comment on above: Order Comment: Speci men Type: VENOUS BLOOD SPECIMENOrdering Facility: [facility] Address: [address] Performed By: #### 2 4344-4 ####[facility] RESPIRATORYCLIA [id number] [facility] RESPIRATORY [id number] [address] [address] Oxygen (BldV) [Partial pressure] 43 mm[Hg] Normal 35-45 [facility] Comment on above: Order Comment: Speci men Type: VENOUS BLOOD SPECIMENOrdering Facility: [facility] Address: [address] Performed By: #### 2 4344-4 ####[facility] RESPIRATORYCLIA [id number] [facility] RESPIRATORY [id number] [address] [address] Oxygen adjusted to patient's actual temperature (BldV) [Partial pressure] Normal [facility] Comment on above: Order Comment: Speci men Type: VENOUS BLOOD SPECIMENOrdering Facility: [facility] Address: [address] Performed By: #### 2 4344-4 ####[facility] RESPIRATORYCLIA [id number] [facility] RESPIRATORY [id number] [address] [address] Oxyhemoglobin (BldV) [Mass fraction] 74 % Normal 60-85 [facility] Comment on above: Order Comment: Speci men Type: VENOUS BLOOD SPECIMENOrdering Facility: [facility] Address: [address] Performed By: #### 2 4344-4 ####[facility] RESPIRATORYCLIA [id number] [facility]OS[facility] RESPIRATORY [id number] [address] [address] pH (BldV) 7.41 [pH] Normal 7.32-7.42 [facility] Comment on above: Order Comment: Olga coley Type: VENOUS BLOOD SPECIMENOrdering Facility: [facility] Address: [address] [place] [address] Performed By: #### 2 4344-4 ####ROTAN RESPIRATORYCLIA [id number] [facility] RESPIRATORY [id number] [place] [address] pH adjusted to patient's actual temperature (BldV) Normal [facility] Comment on above: Order Comment: Speci men Type: VENOUS BLOOD SPECIMENOrdering Facility: [facility] Address: [address] [place] [address] Performed By: #### 2 4344-4 ####ROTAN RESPIRATORYIA [id number] [facility]OS[facility] RESPIRATORY [id number] [place] [address] Potassium [Moles/Vol] 3.6 mmol/L Normal 3.5-5.0 [facility] Comment on above: Order Comment: Spectai men Type: VENOUS BLOOD SPECIMENOrdering Facility: [facility] Address: [address] [place] [address] Performed By: #### 2 4344-4 ####ROTAN RESPIRATORYIA [id number] [facility] RESPIRATORY [id number] [place] [address] HISTORY PHYSICALon HISTORY PHYSICAL HNO ID: [id number] Author: Vania Oliveira APRN.CNP Service: Hospital Medicine [...] Galina Iraheta MD NIGHT AND WEEKEND COVERAGE: ROTAN COVERAGE: Days: 4781-4946, please page attending physician. Nights: 6726-0230, please page [facility] Night coverage pager [phone]. Subjective CHIEF COMPLAINT: dysuria HPI: 86yo female [...] sepsis as this was diagnosed recently at [facility], thus requesting admission for IV antibiotics. Patient [...] BREAST NEEDLE (more content not included)... Normal [facility] PROCALCITONIN (LAB)on 2021 Procalcitonin [Mass/Vol] 0.11 ng/mL High <0.09 [facility] Comment on above: Order Comment: Speci vianca Type: BLOOD SPECIMENOrdering Facility: [facility] Address: [address] [place], [place] [address] Result Comment: For a guided interpretation of test results, please visit the Change in Procalcitonin Calculator, [email or web address]. Performed By: #### P ADAN, 06610-0 ####[facility] LABORATORYCLIA [id number] [place], [place] [address] [place] [address] [facility] PT panel Coag (PPP)on 2021 INR Coag (PPP) [Relative time] 2.0 {INR} High 0.9-1.3 [facility] Comment on above: Order Comment: Speci vianca Type: BLOOD SPECIMENOrdering Facility: [facility] Address: [address] [place], [place] [address] Result Comment: Maricruz min K Antagonist (VKA) Therapeutic Range: INR 2 to 3 (Target INR of 2.5) Note: For patients treated with VKA drugs, such as warfarin, the [place] [employer] 2012 Guideline recommends [...] BARAJAS, et al. Chest 2012, 141:7S-47S Geri LYNCH, et al. JACC 2017, 70: 252-289 Performed By: #### 3 4528-0, 95750-5 ####ROTAN LABORATORYCLIA [id number] [place] [address] [place] PT Coag (PPP) [Time] 20.3 s High 9.7-13.0 [facility] Comment on above: Order Comment: Speci men Type: BLOOD SPECIMENOrdering Facility: [facility] Address: [address] [place] [address] Performed By: #### 3 4528-0, 36062-7 ####ROTAN LABORATORYCLIA [id number] [address] [place] SARS-CoV-2 RNA Resp Ql DEMARCUS+p robeon 08-12-2021 SARS-CoV-2 (COVID-19) RNA DEMARCUS+probe Ql (Resp) COVID 19 RESULT: SARS-CoV-2 (Agent of COVID-19) Not Detected by RT-PCR or equivalent method. This test has been authorized by FDA under an Emergency Use Authorization (EUA). Normal [facility] Comment on above: Performed By: #### 9 4500-6 ####ROTAN LABORATORYCLIA [id number] [place] [address] [place] URINALYSIS, REFLEX MICROSCOP ICon 08-12-2021 Bilirubin Ql (U) Negative Normal Negative [facility] Comment on above: Order Comment: Speci men Type: URINE SPECIMENOrdering Facility: [facility] Address: [address] [place] [address] Performed By: #### L [id number] ####ROTAN LABORATORYCLIA [id number] [address] [place] Clarity (Unsp spec) Clear Normal Clear [facility] Comment on above: Order Comment: Speci men Type: URINE SPECIMENOrdering Facility: [facility] Address: [address] [place] [address] Performed By: #### L [id number] ####R[facility]AS LABORATORYCLIA [id number] [address] [place] Color (U) Yellow Normal Yellow [facility] Comment on above: Order Comment: Speci men Type: URINE SPECIMENOrdering Facility: [facility] Address: [address] [place] [address] Performed By: #### L [id number] ####R[facility] LABORATORYCLIA [id number] [address] Glucose Test strip (U) [Mass/Vol] Negative Normal Negative [facility] Comment on above: Order Comment: Speci men Type: URINE SPECIMENOrdering Facility: [facility] Address: [address] [place] [address] Performed By: #### L [id number] ####R[facility] LABORATORYCLIA [id number] [place] [address] [place] Hemoglobin Ql (U) Trace Abnormal Negative [facility] Comment on above: Order Comment: Speci men Type: URINE SPECIMENOrdering Facility: [facility] Address: [address] [place] [address] Performed By: #### L [id number] ####R[facility]AS LABORATORYCLIA [id number] [address] [place] Ketones Ql (U) Negative Normal Negative [facility] Comment on above: Order Comment: Speci men Type: URINE SPECIMENOrdering Facility: [facility] Address: [address] [place] [address] Performed By: #### L [id number] ####R[facility] LABORATORYCLIA [id number] [address] Leukocyte esterase Test strip Ql (U) 3+ Abnormal Negative [facility] Comment on above: Order Comment: Speci men Type: URINE SPECIMENOrdering Facility: [facility] Address: [address] [place] [address] Performed By: #### L [id number] ####R[facility]AS LABORATORYCLIA [id number] [address] [place] Nitrite Ql (U) Negative Normal Negative [facility] Comment on above: Order Comment: Speci men Type: URINE SPECIMENOrdering Facility: [facility] Address: [address] [place] [address] Performed By: #### L [id number] ####R[facility]AS LABORATORYCLIA [id number] [place] [address] [place] pH (U) 6.5 [pH] Normal 5.0-8.0 [facility] Comment on above: Order Comment: Speci men Type: URINE SPECIMENOrdering Facility: [facility] Address: [address] [place] [address] Performed By: #### L [id number] ####ROTAN LABORATORYCLIA [id number] [place] [address] [place] Protein (U) [Mass/Vol] Negative Normal Negative [facility] Comment on above: Order Comment: Speci men Type: URINE SPECIMENOrdering Facility: [facility] Address: [address] [place] [address] Performed By: #### L [id number] ####ROTAN LABORATORYCLIA [id number] [place] [address] [place] RBC LM.HPF (Urine sed) [#/Area] 0-3 /HPF Normal 0-3 /HPF [facility] Comment on above: Order Comment: Speci men Type: URINE SPECIMENOrdering Facility: [facility] Address: [address] [place] [address] Performed By: #### L [id number] ####ROTAN LABORATORYCLIA [id number] [address] [place] Specific gravity (U) [Rel density] <=1.005 Low 1.005-1.030 [facility] Comment on above: Order Comment: Speci men Type: URINE SPECIMENOrdering Facility: [facility] Address: [address] [place] [address] Performed By: #### L [id number] ####ROTAN LABORATORYCLIA [id number] [address] [place] Urobilinogen Ql (U) 0.2 EU/dL Normal 0.2-1.0 EU/dL [facility] Comment on above: Order Comment: Speci men Type: URINE SPECIMENOrdering Facility: [facility] Address: [address] [place] [address] Performed By: #### L [id number] ####ROTAN LABORATORYCLIA [id number] [place] [address] [place] WBC LM.HPF (Urine sed) [#/Area] /[HPF] Abnormal 0-5 /HPF [facility] Comment on above: Order Comment: Speci men Type: URINE SPECIMENOrdering Facility: [facility] Address: [address] [place] [address] [address] [place] [address] Performed By: #### L [id number] ####ROTAN LABORATORYCLIA [id number] [place] [address] [place] US DVT LOWER [...] imaged segments of the left lower extremity. Transportation Engineer: PSCYanelis Transcribe Date/Time: Aug 12 2021 9:49P Dictated by : MEHRDAD INIGUEZ MD This examination was interpreted and the report reviewed and electronically signed by: MEHRDAD INIGUEZ MD on Aug 12 2021 9:50PM EST [id number] Normal [facility] aPTT PPPon 08-12-2021 aPTT Coag (PPP) [Time] 72.9 s High 23.0-32.4 [facility] Comment on above: Order Comment: Speci men Type: BLOOD SPECIMENOrdering Facility: [facility] Address: [address] [place] [address] Performed By: #### 3 4528-0, 50377-4 ####ROTAN LABORATORYCLIA [id number] [place] [address] [place] [facility] UA DIP, URINE (POC)on 2021 BILIRUBIN UA (POCT) Negative Negative [facility] CLARITY UA (POCT) Clear [facility] COLOR UA (POCT) Yellow [facility] GLUCOSE UA (POCT) Negative Negative mg/dL [facility] HEMOGLOBIN/BLOOD UA (POCT) Trace-intact Abnormal Negative [facility] KETONE UA (POCT) Negative Negative mg/dL [facility] LEUKOCYTES UA (POCT) Small Abnormal Negative [facility] NITRITE UA (POCT) Negative Negative [facility] PH UA (POCT) 6.5 4.5 - 8.0 [facility] Protein Ql (U) Negative Negative mg/dL [facility] SPECIFIC GRAVITY UA (POCT) 1.010 1.005 - 1.030 [facility] UROBILINOGEN UA (POCT) 0.2 E.U./dL Winifred l E.U./dL [facility] Absolute lymphocyte counton 07-23-2021 Lymphocytes Auto (Unsp spec) [#/Vol] 1.68 10*3/uL 0.83-4.51 [facility] Work Phone: Basophil percentageon 2021 Basophils/100 WBC (Bld) 0.7 % 0-1 [facility] Work Phone: Chloride [Moles/Vol] 109 mmol/L 98-[address] [facility] Work Phone: Eosinophils/100 WBC (Bld) 1.3 % 0-5 [facility] Work Phone: Glucose [Mass/Vol] 79 mg/dL 74-106 [facility] Work Phone: Neutrophils (Bld) [#/Vol] 4.3 10*3/uL 2.0-7.7 [facility] Work Phone: Neutrophils/100 WBC (Bld) 61.7 % 47-70 [facility] Work Phone: Potassium [Moles/Vol] 3.8 mmol/L 3.5-5.1 [facility] Work Phone: Sodium [Moles/Vol] 143 mmol/L 136-145 [facility] Work Phone: WBC (Bld) [#/Vol] 7.0 10*3/uL 4.4-11.0 [facility] Work Phone: Blood erythrocytes count (nu mber/volume)on 07-23-2021 RBC (Bld) [#/Vol] 3.00 10*6/uL 4.2-5.4 [facility] Work Phone: Blood hemoglobin measurement (mass/volume)on 07-23-2021 Hemoglobin (Bld) [Mass/Vol] 9.0 g/dL 12.0-15.0 [facility] Work Phone: Blood lymphocytes/100 leukoc yteson 07-23-2021 Lymphocytes/100 WBC (Bld) 24.1 % 19-41 [facility] Work Phone: Blood monocytes/100 leukocyt eson 07-23-2021 Monocytes/100 WBC (Bld) 12.1 % 0-10 [facility] Work Phone: Blood platelet mean volumeon 07-23-2021 Platelet mean volume (Bld) [Entitic vol] 9.5 fL 6.2-12.0 [facility] Work Phone: Determination of erythrocyte mean corpuscular volume (MCV)on 07-23-2021 MCV (RBC) [Entitic vol] 94.0 fL 81-99 [facility] Work Phone: [phone] Hematocrit Auto (Bld) [Volum e fraction]on 07-23-2021 Hematocrit (Bld) [Volume fraction] 28.2 % 37-47 [facility] Work Phone: [phone] INR in Blood by Coagulation assayon 07-23-2021 INR Coag (Bld) [Relative time] 2.6 {INR} [facility] Work Phone: [phone] Laboratory - Chemistry and C hemistry - challengeon 07-23-2021 CO2 [Moles/Vol] 28.0 mmol/L 21.0-32.0 [facility] Work Phone: [phone] Magnesium [Mass/Vol] 2.2 mg/dL 1.6-2.[address] [facility] Work Phone: [phone] Urea nitrogen/Creatinine [Mass ratio] 21.6 mg/mg 10-20 [facility] Work Phone: [phone] Laboratory - Coagulationon 0 07-23-2021 PT Coag (PPP) [Time] 27.5 s 11.7-14.[address] [facility] Work Phone: Laboratory - Hematology and Cell countson 07-23-2021 Erythrocyte distribution width (RBC) [Entitic vol] 58.2 fL 35.1-43.9 [facility] Work Phone: [phone] Erythrocyte distribution width (RBC) [Ratio] 16.9 % 11.6-14.6 [facility] Work Phone: [phone] Immature granulocytes/100 WBC (Bld) 0.100 % 0.0-0.9 [facility] Work Phone: [phone] Comment on above: IG% - Immature Granu locytes (promyelocytes, myelocytes and metamyelocytes) > 1% indicates that a LEFT SHIFT is Present. MCH (RBC) [Entitic mass] 30.0 pg 27.0-32.0 [facility] Work Phone: Nucleated RBC/100 WBC (Bld) [Ratio] 0 % 0-5 [facility] Work Phone: MCHC Auto (RBC) [Mass/Vol]on 07-23-2021 MCHC (RBC) [Mass/Vol] 31.9 g/dL 32-36 [facility] Work Phone: No Panel Informationon 07-23 Estimated GFR (MDRD) Amer 112 mL/min >60 [facility] Work Phone: Comment on above: GFR Calc Estimated GFR (MDRD) Non-Af Amer 92 mL/min >60 [facility] Work Phone: Comment on above: Non- GFR Calc Platelets bldon 07-23-2021 Platelets (Bld) [#/Vol] 178 10*3/uL 150-450 [facility] Work Phone: Serum or plasma calcium yonatan urement (mass/volume)on 07-23-2021 Calcium [Mass/Vol] 8.9 mg/dL 8.5-10.1 [facility] Work Phone: Serum or plasma creatinine m easurement (mass/volume)on 07-23-2021 Creatinine [Mass/Vol] 0.65 mg/dL 0.55-1.02 [facility] Work Phone: Comment on above: The validity of the calculated GFR & GFRAA in patients over 70 years has not been determined. Clinical correlation is essential. Serum or plasma urea nitroge n measurement (mass/volume)on 07-23-2021 Urea nitrogen [Mass/Vol] 14 mg/dL 7-18 [facility] Work Phone: Thin prep Papanicolaou smear with manual screeningon 07-23-2021 Thin prep Papanicolaou smear with manual screening 6 5-15 [facility] Work Phone: Absolute lymphocyte counton 07-16-2021 Lymphocytes Auto (Unsp spec) [#/Vol] 1.54 10*3/uL 0.83-4.51 [facility] Work Phone: Basophil percentageon 2021 Basophils/100 WBC (Bld) 0.6 % 0-1 [facility] Work Phone: Chloride [Moles/Vol] 109 mmol/L 98-107 [facility] Work [facility]: Eosinophils/100 WBC (Bld) 2.5 % 0-5 [facility] Work Phone: Glucose [Mass/Vol] 66 mg/dL 74-106 [facility] Work Phone: Neutrophils (Bld) [#/Vol] 4.2 10*3/uL 2.0-7.7 [facility] Work Phone: Neutrophils/100 WBC (Bld) 63.4 % 47-70 [facility] Work Phone: Potassium [Moles/Vol] 4.0 mmol/L 3.5-5.1 [facility] Work Phone: Sodium [Moles/Vol] 141 mmol/L 136-145 [facility] Work Phone: WBC (Bld) [#/Vol] 6.7 10*3/uL 4.4-11.0 [facility] Work Phone: Blood erythrocytes count (nu mber/volume)on 07-16-2021 RBC (Bld) [#/Vol] 3.05 10*6/uL 4.2-5.4 [facility] Work Phone: Blood hemoglobin measurement (mass/volume)on 07-16-2021 Hemoglobin (Bld) [Mass/Vol] 9.1 g/dL 12.0-15.0 [facility] Work Phone: Blood lymphocytes/100 leukoc yteson 07-16-2021 Lymphocytes/100 WBC (Bld) 23.1 % 19-41 [facility] Work Phone: Blood monocytes/100 leukocyt eson 07-16-2021 Monocytes/100 WBC (Bld) 10.3 % 0-10 [facility] Work Phone: Blood platelet mean volumeon 07-16-2021 Platelet mean volume (Bld) [Entitic vol] 9.7 fL 6.2-12.0 [facility] Work Phone: [phone] Determination of erythrocyte mean corpuscular volume (MCV)on 07-16-2021 MCV (RBC) [Entitic vol] 95.4 fL 81-99 [facility] Work Phone: Hematocrit Auto (Bld) [Volum e fraction]on 07-16-2021 Hematocrit (Bld) [Volume fraction] 29.1 % 37-47 [facility] Work Phone: [phone] INR in Blood by Coagulation assayon 07-16-2021 INR Coag (Bld) [Relative time] 1.8 {INR} [facility] Work Phone: [phone] Laboratory - Chemistry and C hemistry - challengeon 07-16-2021 CO2 [Moles/Vol] 27.0 mmol/L 21.0-32.0 [facility] Work Phone: [phone] Urea nitrogen/Creatinine [Mass ratio] 25.0 mg/mg 10-20 [facility] Work Phone: [phone] Laboratory - Coagulationon 0 07-16-2021 PT Coag (PPP) [Time] 20.7 s 11.7-14.[address] [facility] Work Phone: [phone] Laboratory - Hematology and Cell countson 07-16-2021 Erythrocyte distribution width (RBC) [Entitic vol] 60.8 fL 35.1-43.9 [facility] Work Phone: [phone] Erythrocyte distribution width (RBC) [Ratio] 17.3 % 11.6-14.6 [facility] Work Phone: [phone] Immature granulocytes/100 WBC (Bld) 0.100 % 0.0-0.9 [facility] Work Phone: [phone] Comment on above: IG% - Immature Granu locytes (promyelocytes, myelocytes and metamyelocytes) > 1% indicates that a LEFT SHIFT is Present. MCH (RBC) [Entitic mass] 29.8 pg 27.0-32.0 [facility] Work Phone: Nucleated RBC/100 WBC (Bld) [Ratio] 0 % 0-5 [facility] Work Phone: MCHC Auto (RBC) [Mass/Vol]on 07-16-2021 MCHC (RBC) [Mass/Vol] 31.3 g/dL 32-36 [facility] Work Phone: No Panel Informationon 07-16 Estimated GFR (MDRD) Amer 122 mL/min >60 [facility] Work Phone: Comment on above: GFR Calc Estimated GFR (MDRD) Non-Af Amer 101 mL/min >60 [facility] Work Phone: Comment on above: Non- GFR Calc Thyroid Stimulating Hormone (TSH) 2.10 uIU/mL 0.358-3.74 [facility] Work Phone: Platelets bldon 07-16-2021 Platelets (Bld) [#/Vol] 228 10*3/uL 150-450 [facility] Work Phone: Serum or plasma calcium yonatan urement (mass/volume)on 07-16-2021 Calcium [Mass/Vol] 9.0 mg/dL 8.5-10.1 [facility] Work Phone: Serum or plasma creatinine m easurement (mass/volume)on 07-16-2021 Creatinine [Mass/Vol] 0.60 mg/dL 0.55-1.02 [facility] Work Phone: Comment on above: The validity of the calculated GFR & GFRAA in patients over 70 years has not been determined. Clinical correlation is essential. Serum or plasma urea nitroge n measurement (mass/volume)on 07-16-2021 Urea nitrogen [Mass/Vol] 15 mg/dL 7-18 [facility] Work Phone: Thin prep Papanicolaou smear with manual screeningon 07-16-2021 Thin prep Papanicolaou smear with manual screening 5 5-15 [facility] Work Phone: [phone] Absolute lymphocyte counton 07-13-2021 Lymphocytes Auto (Unsp spec) [#/Vol] 1.70 10*3/uL 0.83-4.51 [facility] Work Phone: [phone] Basophil percentageon 2021 Basophils/100 WBC (Bld) 0.7 % 0-1 [facility] Work Phone: [phone] Cholesterol [Mass/Vol] 113 mg/dL <200 [facility] Work Phone: Comment on above: <200 mg/dL Desirable 200-240 mg/dL Borderline >240 mg/dL High Risk Eosinophils/100 WBC (Bld) 2.9 % 0-5 [facility] Work Phone: [phone] Neutrophils (Bld) [#/Vol] 5.5 10*3/uL 2.0-7.7 [facility] Work Phone: [phone] Neutrophils/100 WBC (Bld) 65.5 % 47-70 [facility] Work Phone: Triglyceride [Mass/Vol] 95 mg/dL <199 [facility] Work Phone: Comment on above: The drugs N-Acetylcy steine and Metamizole may falsely depress this assay.Serum Triglycerides Reference Interval Normal <150 mg/dL Borderline high 150 - 199 mg/dL High 200 - 499 mg/dL Very High > or = 500 mg/dL WBC (Bld) [#/Vol] 8.4 10*3/uL 4.4-11.0 [facility] Work Phone: Blood erythrocytes count (nu mber/volume)on 07-13-2021 RBC (Bld) [#/Vol] 3.14 10*6/uL 4.2-5.4 [facility] Work Phone: Blood hemoglobin measurement (mass/volume)on 07-13-2021 Hemoglobin (Bld) [Mass/Vol] 9.4 g/dL 12.0-15.0 [facility] Work Phone: Blood lymphocytes/100 leukoc yteson 07-13-2021 Lymphocytes/100 WBC (Bld) 20.3 % 19-41 [facility] Work Phone: Blood monocytes/100 leukocyt eson 07-13-2021 Monocytes/100 WBC (Bld) 10.0 % 0-10 [facility] Work Phone: Blood platelet mean volumeon 07-13-2021 Platelet mean volume (Bld) [Entitic vol] 9.7 fL 6.2-12.0 [facility] Work Phone: Determination of erythrocyte mean corpuscular volume (MCV)on 07-13-2021 MCV (RBC) [Entitic vol] 94.6 fL 81-99 [facility] Work Phone: Hematocrit Auto (Bld) [Volum e fraction]on 07-13-2021 Hematocrit (Bld) [Volume fraction] 29.7 % 37-47 [facility] Work Phone: INR in Blood by Coagulation assayon 07-13-2021 INR Coag (Bld) [Relative time] 1.4 {INR} [facility] Work Phone: Laboratory - Chemistry and C hemistry - challengeon 07-13-2021 Magnesium [Mass/Vol] 2.2 mg/dL 1.6-2.[address] [facility] Work Phone: Laboratory - Coagulationon 0 07-13-2021 PT Coag (PPP) [Time] 16.4 s 11.7-14.[address] [facility] Work Phone: Laboratory - Hematology and Cell countson 07-13-2021 Erythrocyte distribution width (RBC) [Entitic vol] 58.6 fL 35.1-43.9 [facility] Work Phone: Erythrocyte distribution width (RBC) [Ratio] 17.2 % 11.6-14.6 [facility] Work Phone: Immature granulocytes/100 WBC (Bld) 0.600 % 0.0-0.9 [facility] Work Phone: Comment on above: IG% - Immature Granu locytes (promyelocytes, myelocytes and metamyelocytes) > 1% indicates that a LEFT SHIFT is Present. MCH (RBC) [Entitic mass] 29.9 pg 27.0-32.0 [facility] Work Phone: Nucleated RBC/100 WBC (Bld) [Ratio] 0 % 0-5 [facility] Work Phone: MCHC Auto (RBC) [Mass/Vol]on 07-13-2021 MCHC (RBC) [Mass/Vol] 31.6 g/dL 32-36 [facility] Work Phone: No Panel Informationon 07-13 Thyroid Stimulating Hormone (TSH) 3.09 uIU/mL 0.358-3.74 [facility] Work Phone: Platelets bldon 07-13-2021 Platelets (Bld) [#/Vol] 240 10*3/uL 150-450 [facility] Work Phone: Serum or plasma cholesterol in HDL measurement (mass/volume)on 07-13-2021 Cholesterol in HDL [Mass/Vol] 26 mg/dL >40 [facility] Work Phone: Comment on above: The drugs N-Acetylcy steine and Metamizole may falsely depress this assay. Reference Range HDL <40 mg/dL Low HDL Cholesterol HDL >or= 60 mg/dL High HDL Cholesterol Serum or plasma cholesterol in VLDL measurement (mass/volume)on 07-13-2021 Cholesterol in VLDL [Mass/Vol] 19 mg/dL 5-40 [facility] Work Phone: Serum or plasma low density lipoprotein (LDL) cholesterol measurement (mass/volume)on 07-13-2021 Cholesterol in LDL [Mass/Vol] 68 mg/dL 0-130 [facility] Work Phone: Serum or plasma transthyreti n measurement (mass/volume)on 07-13-2021 Prealbumin [Mass/Vol] 11.5 mg/dL 20.0-40.0 [facility] Work Phone: Whole blood hemoglobin A1c/t otal hemoglobin ratio (mass fraction)on 07-13-2021 HbA1c (Bld) [Mass fraction] 5.0 % 3.8-5.6 [facility] Work Phone: Comment on above: Normal < 5.7 % Predi abetic 5.7 - 6.4 % Diabetic >or= 6.5 % Please note range changes. HBV surface Ab IA Ql (S)on 0 07-05-2021 HBV surface Ag Ql (S) Negative Negative [facility] HEP A AB IGMon 07-05-2021 HAV IgM Ql (S) Negative Negative [facility] HEP B CORE AB IGMon 07-06-19 HBV core IgM Ql (S) Negative Negative [facility] HEP C AB IA W/CONF SCRNon HCV Ab Ql (S) Negative Negative [facility] Absolute lymphocyte counton 07-03-2021 Lymphocytes Auto (Unsp spec) [#/Vol] 0.96 10*3/uL 0.83-4.51 [facility] Work Phone: Basophil percentageon 2021 Basophil percentage 5-10 SEEN /hpf 0-5 [facility] Work Phone: Basophils/100 WBC (Bld) 0.4 % 0-1 [facility] Work Phone: Bilirubin [Mass/Vol] 2.30 mg/dL 0.20-1.[address] [facility] Work Phone: Comment on above: For patients on eltr ombopag therapy, use of Dimension [place] TBIL is not recommended. Chloride [Moles/Vol] 106 mmol/L 98-[address] [facility] Work Phone: Eosinophils/100 WBC (Bld) 1.4 % 0-5 [facility] Work Phone: Glucose [Mass/Vol] 114 mg/dL 74-106 [facility] Work Phone: Comment on above: Fasting Glucose resu lt from 100 to 125 mg/dL suggests IMPAIRED HOMEOSTASIS per A.D.A. criteria. Neutrophils (Bld) [#/Vol] 7.5 10*3/uL 2.0-7.7 [facility] Work Phone: Neutrophils/100 WBC (Bld) 77.6 % 47-70 [facility] Work Phone: Potassium [Moles/Vol] 4.0 mmol/L 3.5-5.1 [facility] Work Phone: Protein [Mass/Vol] 7.5 g/dL 6.4-8.2 [facility] Work Phone: Sodium [Moles/Vol] 137 mmol/L 136-145 [facility] Work Phone: WBC (Bld) [#/Vol] 9.7 10*3/uL 4.4-11.0 [facility] Work Phone: Bilirubin Test strip Ql (U)o n 07-03-2021 Bilirubin Ql (U) Negative Negative [facility] Work Phone: Blood erythrocytes count (nu mber/volume)on 07-03-2021 RBC (Bld) [#/Vol] 3.10 10*6/uL 4.2-5.4 [facility] Work Phone: Blood hemoglobin measurement (mass/volume)on 07-03-2021 Hemoglobin (Bld) [Mass/Vol] 9.3 g/dL 12.0-15.0 [facility] Work Phone: Blood lymphocytes/100 leukoc yteson 07-03-2021 Lymphocytes/100 WBC (Bld) 9.9 % 19-41 [facility] Work Phone: Blood monocytes/100 leukocyt eson 07-03-2021 Monocytes/100 WBC (Bld) 10.2 % 0-10 [facility] Work Phone: Blood platelet mean volumeon 07-03-2021 Platelet mean volume (Bld) [Entitic vol] 9.2 fL 6.2-12.0 [facility] Work Phone: Determination of erythrocyte mean corpuscular volume (MCV)on 07-03-2021 MCV (RBC) [Entitic vol] 94.2 fL 81-99 [facility] Work Phone: Direct bilirubinon Bilirubin.direct [Mass/Vol] 1.82 mg/dL 0.00-0.30 [facility] Work Phone: Hematocrit Auto (Bld) [Volum e fraction]on 07-03-2021 Hematocrit (Bld) [Volume fraction] 29.2 % 37-47 [facility] Work Phone: [phone] INR in Blood by Coagulation assayon 07-03-2021 INR Coag (Bld) [Relative time] 3.6 {INR} [facility] Work Phone: Ketones Test strip Ql (U)on 07-03-2021 Ketones Ql (U) Negative Negative [facility] Work Phone: Laboratory - Chemistry and C hemistry - challengeon 07-03-2021 ALP [Catalytic activity/Vol] 143 U/L 45-117 [facility] Work Phone: [phone] ALT [Catalytic activity/Vol] 49 U/L 13-56 [facility] Work Phone: [phone] CO2 [Moles/Vol] 25.0 mmol/L 21.0-32.0 [facility] Work Phone: Globulin (S) [Mass/Vol] 4.9 g/dL 2.2-4.2 [facility] Work Phone: [phone] Lipase [Catalytic activity/Vol] 260 U/L 73-393 [facility] Work Phone: [phone] Urea nitrogen/Creatinine [Mass ratio] 12.9 mg/mg 10-20 [facility] Work Phone: Laboratory - Coagulationon 0 07-03-2021 PT Coag (PPP) [Time] 35.3 s 11.7-14.[address] [facility] Work Phone: Laboratory - Hematology and Cell countson 07-03-2021 Erythrocyte distribution width (RBC) [Entitic vol] 54.8 fL 35.1-43.9 [facility] Work Phone: Erythrocyte distribution width (RBC) [Ratio] 15.9 % 11.6-14.6 [facility] Work Phone: Immature granulocytes/100 WBC (Bld) 0.500 % 0.0-0.9 [facility] Work Phone: Comment on above: IG% - Immature Granu locytes (promyelocytes, myelocytes and metamyelocytes) > 1% indicates that a LEFT SHIFT is Present. MCH (RBC) [Entitic mass] 30.0 pg 27.0-32.0 [facility] Work Phone: Nucleated RBC/100 WBC (Bld) [Ratio] 0 % 0-5 [facility] Work Phone: MCHC Auto (RBC) [Mass/Vol]on 07-03-2021 MCHC (RBC) [Mass/Vol] 31.8 g/dL 32-36 [facility] Work Phone: Mucus LM Ql (Urine sed)on Mucus Ql (Urine sed) 0 SEEN /hpf [facility] Work Phone: Nitrite Test strip Ql (U)on 07-03-2021 Nitrite Ql (U) Negative Negative [facility] Work Phone: No Panel Informationon 07-03 Estimated Creatinine Clearance Calc 46.12 ml/min [facility] Work Phone: Estimated GFR (MDRD) Amer 81 mL/min >60 [facility] Work Phone: Comment on above: GFR Calc Estimated GFR (MDRD) Non-Af Amer 67 mL/min >60 [facility] Work Phone: Comment on above: Non- GFR Calc Platelets bldon 07-03-2021 Platelets (Bld) [#/Vol] 160 10*3/uL 150-450 [facility] Work Phone: Protein Test strip Ql (U)on 07-03-2021 Protein Ql (U) 15 mg/dl Negative [facility] Work Phone: Serum or plasma albumin yonatan urement (mass/volume)on 07-03-2021 Albumin [Mass/Vol] 2.6 g/dL 3.2-5.0 [facility] Work Phone: Serum or plasma calcium yonatan urement (mass/volume)on 07-03-2021 Calcium [Mass/Vol] 8.7 mg/dL 8.5-10.1 [facility] Work Phone: Serum or plasma creatinine m easurement (mass/volume)on 07-03-2021 Creatinine [Mass/Vol] 0.85 mg/dL 0.55-1.02 [facility] Work Phone: Comment on above: The validity of the calculated GFR & GFRAA in patients over 70 years has not been determined. Clinical correlation is essential. Serum or plasma urea nitroge n measurement (mass/volume)on 07-03-2021 Urea nitrogen [Mass/Vol] 11 mg/dL 7-18 [facility] Work Phone: Squamous epithelial cells de tection in urine sediment by light microscopyon 07-03-2021 Epithelial cells.squamous LM Ql (Urine sed) 0 SEEN /hpf 5-10 [facility] Work Phone: Thin prep Papanicolaou smear with manual screeningon 07-03-2021 Thin prep Papanicolaou smear with manual screening 87 U/L 15-37 [facility] Work Phone: Thin prep Papanicolaou smear with manual screening 6 5-15 [facility] Work Phone: Urine blood detectionon 06-15 RBC Ql (U) 10 /ul Negative [facility] Work Phone: RBC Ql (U) 0-5 SEEN /hpf 0-5 [facility] Work Phone: Urine clarityon 07-03-2021 Clarity (U) Clear Clear [facility] Work Phone: Urine color determinationon 07-03-2021 Color (U) Yellow Yellow [facility] Work Phone: Urine glucose detectionon Glucose Ql (U) Normal mg/dl Normal [facility] Work Phone: Urine leukocyte esterase det ection by dipstickon 07-03-2021 Leukocyte esterase Test strip Ql (U) 500 /ul Negative [facility] Work Phone: Urine pHon 07-03-2021 pH (U) 7.0 [pH] 5.0 - 8.0 [facility] Work Phone: Urine sediment bacteria coun t by microscopy (number/high power field)on 07-03-2021 Bacteria LM.HPF (Urine sed) [#/Area] 2 /[HPF] None Seen [facility] Work Phone: Urine specific gravity measu rementon 07-03-2021 Specific gravity (U) [Rel density] 1.010 1.002-1.030 [facility] Work Phone: Urobilinogen Auto test strip Ql (U)on 07-03-2021 Urobilinogen Ql (U) 1 mg/dl Normal [facility] Work Phone: XR Chest PA and Lateralon IMPRESSION: Mild bibasilar atelectasis. Subtle infection could appear similar but is thought less likely. Transportation Engineer: PSCB Transcribe Date/Time: May 17 2021 6:05P [...] osseous abnormality. DIVISION OF RADIOLOGY [facility] * * *Final Report* * [...] appear similar but is thought less likely. Transportation Engineer: GRANT Transcribe Date/Time: May 17 2021 6:05P Dictated by : SHAN KAY MD This examination was interpreted and the report reviewed and electronically signed by: SHAN KAY MD on May 17 2021 6:07PM EST [facility] Radiology Study observation (narrative) [facility] XR Chest PA and LateralOrder ed By: [facility] Provider on 05-17-2021 [facility] Basic Metabolic Panlon 01-14 Anion gap [Moles/Vol] 7 mmol/L Low 9-18 [facility] Comment on above: Performed By: #### M G1, BMP, CBC ####[facility] [address] [place] [phone] Calcium [Mass/Vol] 8.5 mg/dL Normal 8.5-10.2 [facility] Comment on above: Performed By: #### M G1, BMP, CBC ####[facility] [address]a9261 [address] Chloride [Moles/Vol] 110 mmol/L High 97-105 [facility] Comment on above: Performed By: #### M G1, BMP, CBC ####[facility] [address] [place] [id number] CO2 [Moles/Vol] 23 mmol/L Normal 22-30 [facility] Comment on above: Performed By: #### M G1, BMP, CBC ####[facility] [address] [place] [phone] Creatinine [Mass/Vol] 0.85 mg/dL Normal 0.58-0.96 [facility] Comment on above: Performed By: #### M Vanna, BMP, CBC ####[facility] [address] [place] [address] eGFR- Amer. >60 Normal [facility] Comment on above: Performed By: #### M Vanna, BMP, CBC ####[facility] [address] [place] [address] eGFR-All Other Races >60 Normal [facility] Comment on above: Result Comment: eGFR (Estimated [...] Performed By: #### M G1, BMP, CBC ####[facility] [address] [place] [id number] Glucose [Mass/Vol] 94 mg/dL Normal 74-99 [facility] Comment on above: Result Comment: The [place] Diabetes Association (ADA) provides guidance for cutoff [...] Medical Care in Diabetes 2016, [place] Diabetes Association. Diabetes Care. 2016.39(Suppl 1). Performed By: #### M , BMP, CBC ####[facility] [address] [place] [address] Potassium [Moles/Vol] 3.8 mmol/L Normal 3.7-5.1 [facility] Comment on above: Performed By: #### M , BMP, CBC ####[place] [address] Sodium [Moles/Vol] 140 mmol/L Normal 136-144 [facility] Comment on above: Performed By: #### M , BMP, CBC ####[place] [address] Urea nitrogen [Mass/Vol] 10 mg/dL Normal 7-21 [facility] Comment on above: Performed By: #### M , BMP, CBC ####[place] [address] CBCon 01-14-2021 Absolute nRBC <0.01 Normal <0.01 [facility] Comment on above: Performed By: #### M , BMP, CBC ####[place] [address] Erythrocyte distribution width (RBC) [Ratio] 16.5 % High 11.5-15.0 [facility] Comment on above: Performed By: #### M , BMP, CBC ####[place] [address] Hematocrit (Bld) [Volume fraction] 25.5 % Low 36.0-46.0 [facility] Comment on above: Performed By: #### M G1, BMP, CBC ####[facility] [address] [place] [address] Hemoglobin (Bld) [Mass/Vol] 8.4 g/dL Low 11.5-15.5 [facility] Comment on above: Performed By: #### M G1, BMP, CBC ####[facility] [phone] MCH 34.7 pG High 26.0-34.0 [facility] Comment on above: Performed By: #### M G1, BMP, CBC ####[facility] [phone] MCHC (RBC) [Mass/Vol] 32.9 g/dL Normal 30.5-36.0 [facility] Comment on above: Performed By: #### M Vanna, BMP, CBC ####[facility] [address] [place] [phone] MCV (RBC) [Entitic vol] 105.4 fL High 80.0-100.0 [facility] Comment on above: Performed By: #### M Vanna, BMP, CBC ####[facility] [address] [place] [phone] Platelet mean volume (Bld) [Entitic vol] 9.8 fL Normal 9.0-12.7 [facility] Comment on above: Performed By: #### M Vanna, BMP, CBC ####[facility] [address] [place] [phone] Platelets (Bld) [#/Vol] 109 10*3/uL Low 150-400 [facility] Comment on above: Performed By: #### M G1, BMP, CBC ####[facility] [phone] RBC (Bld) [#/Vol] 2.42 10*6/uL Low 3.90-5.20 [facility] Comment on above: Performed By: #### M G1, BMP, CBC ####[facility] [address]on2760 [phone] WBC (Bld) [#/Vol] 5.89 10*3/uL Normal 3.70-11.00 [facility] Comment on above: Performed By: #### M G1, BMP, CBC ####[facility] [phone] CNDSon 01-14-2021 CNDS HNO ID: [id number] Author: Wendy Bonilla DO Service: Hospital Medicine [...] DO Consulting: Johnny Turk MD Primary Service: [place] [address] REASON FOR HOSPITALIZATION: Rectal Bleed DIAGNOSIS: Principal [...] were placed as previously ordered by her tariff compiler to follow up on this and pending at time of discharge. She was provided with referral and number for [facility] and advised to call for an appointment. A Transvaginal ultrasound was obtained and confirmed endometrial thickening of 1.8cm This was reviewed and the patient will follow up with her DISABILITY COUNSELOR. She was discharged home in stable condition. [...] FOLLOW-UP: [facility], Follow up DISABILITY COUNSELOR for endometrial thickening. Follow up Dr. Turk [...] Resume pre-hospital ac (more content not included)... [facility] Magnesiumon 01-14-2021 Magnesium [Mass/Vol] 2.0 mg/dL Normal 1.7-2.3 [facility] Comment on above: Performed By: #### M G1, BMP, CBC ####[facility] [address] [place] [phone] NURSING PROGon 01-14-2021 NURSING PROG HNO ID: [id number] Author: Albania Perez RN Service: ? Author Type: Registered Nurse Type: Nursing Progress Note Filed: 01/14/2021 5:01 PM Note Text: Nursing Progress Note Patient Name: Christian Landrum Patient Location: [place] [address] Daily Note:[id number] [facility], [place] home instructions given-verbalized understanding. This note was completed by: Albania Perez [facility] ALLIED HEALTHon 01-13-2021 ALLIED HEALTH HNO ID: [id number] Author: Margy Walker RDMS Service: Radiology Author Type: Program Analyst Type: Allied Health Filed: 01/13/2021 3:05 PM [...] Walker RDMS January 13, 2021 3:05 PM [facility] Basic Metabolic Panlon 01-13 Anion gap [Moles/Vol] 8 mmol/L Low 9-18 [facility] Comment on above: Performed By: #### P T BMP, CBC ####[facility] [address] [place] [address] Calcium [Mass/Vol] 8.2 mg/dL Low 8.5-10.2 [facility] Comment on above: Performed By: #### P T BMP, CBC ####[facility] [address] [place] [address] Chloride [Moles/Vol] 106 mmol/L High 97-105 [facility] Comment on above: Performed By: #### P T BMP, CBC ####[facility] [address] [place] [address] CO2 [Moles/Vol] 20 mmol/L Low 22-30 [facility] Comment on above: Performed By: #### P T BMP, CBC ####[facility] [address] [place] [address] Creatinine [Mass/Vol] 0.74 mg/dL Normal 0.58-0.96 [facility] Comment on above: Performed By: #### P T BMP, CBC ####[facility] [address] [place] [address] eGFR- Amer. >60 [facility] Comment on above: Performed By: #### P T, BMP, CBC ####[facility] [address] [place] [address] eGFR-All Other Races >60 [facility] Comment on above: Result Comment: eGFR [...] GFR. Performed By: #### STEPHAN Diaz, CBC ####[facility] [address] [place] [phone] Glucose [Mass/Vol] 179 mg/dL High 74-99 [facility] Comment on above: Result Comment: The [place] Diabetes Association (ADA) provides guidance for cutoff [...] Medical Care in Diabetes 2016, [place] Diabetes Association. Diabetes Care. 2016.39(Suppl 1). Performed By: #### STEPHAN Diaz, CBC ####[facility] [address] [place] [phone] Potassium [Moles/Vol] 3.8 mmol/L Normal 3.7-5.1 [facility] Comment on above: Performed By: #### STEPHAN Diaz, CBC ####[facility] [address] [place] [phone] Sodium [Moles/Vol] 134 mmol/L Low 136-144 [facility] Comment on above: Performed By: #### P STEPHAN Mcgowan, CBC ####[facility] [address] [place] [phone] Urea nitrogen [Mass/Vol] 15 mg/dL Normal 7-21 [facility] Comment on above: Performed By: #### P STEPHAN Mcgowan, CBC ####[facility] [address]al8138 [address] CBCon 01-13-2021 Absolute nRBC <0.01 Normal <0.01 [facility] Comment on above: Performed By: #### P STEPHAN Mcgowan, CBC ####[place] [address] Erythrocyte distribution width (RBC) [Ratio] 16.6 % High 11.5-15.0 [facility] Comment on above: Performed By: #### STEPHAN Diaz, CBC ####[place] [address] Hematocrit (Bld) [Volume fraction] 24.8 % Low 36.0-46.0 [facility] Comment on above: Performed By: #### P STEPHAN Mcgowan, CBC ####[place] [address] Hemoglobin (Bld) [Mass/Vol] 8.4 g/dL Low 11.5-15.5 [facility] Comment on above: Performed By: #### STEPHAN Diaz, CBC ####[place] [address] MCH 35.9 pG High 26.0-34.0 [facility] Comment on above: Performed By: #### STEPHAN Diaz, CBC ####[place] [address] MCHC (RBC) [Mass/Vol] 33.9 g/dL Normal 30.5-36.0 [facility] Comment on above: Performed By: #### STEPHAN Diaz, CBC ####[place] [address] MCV (RBC) [Entitic vol] 106.0 fL High 80.0-100.0 [facility] Comment on above: Performed By: #### P STEPHNA Mcgowan, CBC ####[place] [address] Platelet mean volume (Bld) [Entitic vol] 10.2 fL Normal 9.0-12.7 [facility] Comment on above: Performed By: #### P STEPHAN Mcgowan, CBC ####[place] [address] Platelets (Bld) [#/Vol] 104 10*3/uL Low 150-400 [facility] Comment on above: Performed By: #### P STEPHAN Mcgowan, CBC ####[facility] [address] [place] [address] RBC (Bld) [#/Vol] 2.34 10*6/uL Low 3.90-5.20 [facility] Comment on above: Performed By: #### P T, BMP, CBC ####[facility] [address]nt9557 [phone] WBC (Bld) [#/Vol] 6.11 10*3/uL Normal 3.70-11.00 [facility] Comment on above: Performed By: #### P T, BMP, CBC ####[facility] Dow[address]to2571 [phone] CONSULTon 01-13-2021 CONSULT HNO ID: [id number] Author: Johnny Turk MD Service: General Surgery [...] - Arthritis (more content not included)... Normal [facility] Hep B Core Ab, IgMon 021 Hep B Core Ab, IgM Negative Normal Negative [facility] Comment on above: Performed By: #### 5 7021-8 #### [facility] CLIA [id number] [address] Hep B Core Ab,Totalon 2020 Hep B Core Ab,Total Positive Critically abnormal Negative [facility] Comment on above: Result Comment: Resu lt rechecked. Performed By: #### 5 7021-8 #### [facility] CLIA [id number] [address] Hepat.B Vir Ult Qton 021 HBV DNA Ultra Not detected Normal [facility] Comment on above: Result Comment: Refe rence Range: Negative for HBVDNA The linear range of this assay is 10 to 1,000,000,000 IU/mL. Performed By: #### 5 7021-8 #### [facility] CLIA [id number] [address] Hepatitis Be Antibodon 01-13 Hepatitis Be Antibod Negative Normal Negative [facility] Comment on above: Result Comment: This test should only be used in patients with a previously known and/or concurrent positive HBsAg result. Along with HBeAg test, Hepatitis B e antibody test is used for monitoring the natural history of Hepatitis B virus infection and prognostication. Clinical correlation is required. Performed By: #### 5 7021-8 #### [facility] CLIA [id number] [address] Hepatitis Be Antigenon 01-13 Hepatitis Be Antigen Negative Normal Negative [facility] Comment on above: Performed By: #### 5 7021-8 #### [facility] CLIA [id number] [address] [place] [address] [facility] Protimeon 01-13-2021 PT INR 2.5 High 0.9-1.3 [facility] Comment on above: Result Comment: Maricruz min K Antagonist (VKA) Therapeutic Range: INR 2 to 3 (Target INR of 2.5) Note: For patients treated with VKA drugs, such as warfarin, the [place] [employer]icians 2012 Guideline recommends [...] 2.5 to 3.5 (target INR of 3). Willowtt GH, et al. Chest 2012, 141:7S-47S Geri RA, et al. [facility] 2017, 70: 252-289 Performed By: #### P STEPHAN Mcgowan, CBC ####[facility] Rptgnnanup1580 [address]5160 PT Sec 25.8 sec High 9.7-13.0 [facility] Comment on above: Performed By: #### P STEPHAN Mcgowan, CBC ####[facility] Niuxprrpdo4693 [phone] FEMALE PELVIS TRANSABD LT Don 01-13-2021 FEMALE [...] visualized transvaginally. Trace free fluid Unremarkable adnexa. Transportation Engineer: [facility] Transcribe Date/Time: Jan 13 2021 6:02P Dictated by : NATA HANEY MD This examination was interpreted and the report reviewed and electronically signed by: NATA HANEY MD on Jan 13 2021 6:07PM EST [id number] [facility] US FEMALE PELVIS TRANSVAGon 01-13-2021 US [...] visualized transvaginally. Trace free fluid Unremarkable adnexa. Transportation Engineer: GRANT Transcribe Date/Time: Jan 13 2021 6:02P Dictated by : NATA HANEY MD This examination was interpreted and the report reviewed and electronically signed by: NATA HANEY MD on Jan 13 2021 6:07PM EST [id number] Normal [facility] Urine Cultureon 01-13-2021 Bacteria identified Cx Nom (U) Sp. Request/Comment: - Specimen received in preservative Culture Result - <10,000 CFU/ml Lactose positive gram negative bacilli --> ABNORMAL ALERT Insignificant colony count. No further workup. --> ABNORMAL ALERT <10,000 CFU/ml Normal urogenital cy Critically abnormal [facility] Comment on above: Performed By: #### U RCUL ####[facility] [address] [place] [phone] [address] [phone] APTTon 01-12-2021 aPTT Coag (Bld) [Time] 112.0 s High 23.0-32.4 [facility] Comment on above: Result Comment: Unfr actionated [...] laboratory APTT reagent in use throughout the [facility]. Sample checked for a clot. No call per procedure. 01/12/2021 1541 Performed By: #### C MP, CBCDIF, PTT, MG1, PT ####[facility] [address] [place] [address] CBC and Differentialon 01-12 Abs Baso 0.05 k/uL Normal <0.11 [facility] Comment on above: Performed By: #### C MP, CBCDIF, PTT, MG1, PT ####[facility] [address] [place] [address] Abs Paulding 0.86 k/uL Normal <0.87 [facility] Comment on above: Performed By: #### C MP, CBCDIF, PTT, MG1, PT ####[place] [address] Abs Neut 5.89 k/uL Normal 1.45-7.50 [facility] Comment on above: Performed By: #### C MP, CBCDIF, PTT, MG1, PT ####[place] [address] Absolute nRBC <0.01 Normal <0.01 [facility] Comment on above: Performed By: #### C MP, CBCDIF, PTT, MG1, PT ####[facility] [address] [place] [address] Basophils/100 WBC (Bld) 0.6 % [facility] Comment on above: Performed By: #### C MP, CBCDIF, PTT, MG1, PT ####[place] [address] DTYPE Auto Diff Normal [facility] Comment on above: Performed By: #### C MP, CBCDIF, PTT, MG1, PT ####[facility] [address] [place] [address] Eosinophils (Bld) [#/Vol] 0.09 10*3/uL Normal <0.46 [facility] Comment on above: Performed By: #### C MP, CBCDIF, PTT, MG1, PT ####[facility] [address] [place] [address] Eosinophils/100 WBC (Bld) 1.0 % [facility] Comment on above: Performed By: #### C MP, CBCDIF, PTT, MG1, PT ####[facility] [address] [place] [address] Erythrocyte distribution width (RBC) [Ratio] 16.4 % High 11.5-15.0 [facility] Comment on above: Performed By: #### C MP, CBCDIF, PTT, MG1, PT ####[facility] [address] [place] [address] Hematocrit (Bld) [Volume fraction] 27.4 % Low 36.0-46.0 [facility] Comment on above: Performed By: #### C MP, CBCDIF, PTT, MG1, PT ####[place] [address] Hemoglobin (Bld) [Mass/Vol] 9.2 g/dL Low 11.5-15.5 [facility] Comment on above: Performed By: #### C MP, CBCDIF, PTT, MG1, PT ####[place] [address] Lymphocytes (Bld) [#/Vol] 1.89 10*3/uL Normal 1.00-4.00 [facility] Comment on above: Performed By: #### C MP, CBCDIF, PTT, MG1, PT ####[place] [address] Lymphocytes/100 WBC (Bld) 21.5 % Normal [facility] Comment on above: Performed By: #### C MP, CBCDIF, PTT, MG1, PT ####[place] [address] MCH 35.1 pG High 26.0-34.0 [facility] Comment on above: Performed By: #### C MP, CBCDIF, PTT, MG1, PT ####[place] [address] MCHC (RBC) [Mass/Vol] 33.6 g/dL Normal 30.5-36.0 [facility] Comment on above: Performed By: #### C MP, CBCDIF, PTT, MG1, PT ####[place] [address] MCV (RBC) [Entitic vol] 104.6 fL High 80.0-100.0 [facility] Comment on above: Performed By: #### C MP, CBCDIF, PTT, MG1, PT ####[facility] [address] [place] [address] Monocytes/100 WBC (Bld) 9.8 % Normal [facility] Comment on above: Performed By: #### C MP, CBCDIF, PTT, MG1, PT ####[facility] [address] [place] [address] Neutrophils/100 WBC (Bld) 67.1 % Normal [facility] Comment on above: Performed By: #### C MP, CBCDIF, PTT, MG1, PT ####[facility] [address] [place] [address] NRBCs 0.0 /100 WBC Normal 0 [facility] Comment on above: Performed By: #### C MP, CBCDIF, PTT, MG1, PT ####[facility] [address] [place] [address] Platelet mean volume (Bld) [Entitic vol] 10.6 fL Normal 9.0-12.7 [facility] Comment on above: Performed By: #### C MP, CBCDIF, PTT, MG1, PT ####[place] [address] Platelets (Bld) [#/Vol] 126 10*3/uL Low 150-400 [facility] Comment on above: Result Comment: No c lot detected. Performed By: #### C MP, CBCDIF, PTT, MG1, PT ####[facility] [address] [place] [address] RBC (Bld) [#/Vol] 2.62 10*6/uL Low 3.90-5.20 [facility] Comment on above: Performed By: #### C MP, CBCDIF, PTT, MG1, PT ####[facility] [address] [place] [address] WBC (Bld) [#/Vol] 8.78 10*3/uL Normal 3.70-11.00 [facility] Comment on above: Performed By: #### C MP, CBCDIF, PTT, MG1, PT ####[facility] [address] [place] [phone] CT ABD/PEL W IVCONon 021 CT ABD/PEL W IVCON * * *Final Report* * * DATE OF EXAM: Jan 12 2021 4:21PM [facility] [place] ABD/PEL W IVCON / [...] and/or stent in the RIGHT coronary circulation. Rope Walker (topogram) images: No additional findings. IMPRESSION: Acute cystitis. Cirrhotic liver morphology. Cholelithiasis. Abnormal endometrial thickening to 12 mm in this postmenopausal female. Recommend further evaluation with a female pelvic ultrasound on a nonemergent basis. Acuity: Actionable Findings: Female reproductive tract (pelvis, adnexa) Routing code: WH_1 Recommendation: US FEMALE PELVIS NON-OB NON TORSION ([id number]) Time Frame: at the discretion of the clinical team. Transportation Engineer: GRANT Transcribe Date/Time: Jan 12 2021 4:44P Dictated by : VANESA PRICE DO This examination was interpreted and the report reviewed and electronically signed by: VANESA PRICE DO on Jan 12 2021 5:01PM EST [id number] Normal [facility] Comp Metabolic Panelon 01-12 Albumin [Mass/Vol] 3.4 g/dL Low 3.9-4.9 [facility] Comment on above: Performed By: #### C MP, CBCDIF, PTT, MG1, PT ####[facility] [address] [place] [address] ALP [Catalytic activity/Vol] 52 U/L Normal 34-123 [facility] Comment on above: Performed By: #### C MP, CBCDIF, PTT, MG1, PT ####[facility] [address] [place] [address] ALT [Catalytic activity/Vol] 25 U/L Normal 7-38 [facility] Comment on above: Performed By: #### C MP, CBCDIF, PTT, MG1, PT ####[facility] Lajywefpia7558 [address]5160 Anion gap [Moles/Vol] 12 mmol/L Normal 9-18 [facility] Comment on above: Performed By: #### C MP, CBCDIF, PTT, MG1, PT ####[facility] Ofmcsgizyz3605 [address]5160 AST [Catalytic activity/Vol] 59 U/L High 13-35 [facility] Comment on above: Performed By: #### C MP, CBCDIF, PTT, MG1, PT ####[facility] [address] [place] [address] Bilirubin [Mass/Vol] 1.0 mg/dL Normal 0.2-1.3 [facility] Comment on above: Performed By: #### C MP, CBCDIF, PTT, MG1, PT ####[facility] [address] [place] [address] Calcium [Mass/Vol] 8.9 mg/dL Normal 8.5-10.2 [facility] Comment on above: Performed By: #### C MP, CBCDIF, PTT, MG1, PT ####[facility] [address] [place] [address] Chloride [Moles/Vol] 107 mmol/L High 97-105 [facility] Comment on above: Performed By: #### C MP, CBCDIF, PTT, MG1, PT ####[facility] [address] [place] [address] CO2 [Moles/Vol] 21 mmol/L Low 22-30 [facility] Comment on above: Performed By: #### C MP, CBCDIF, PTT, MG1, PT ####[facility] [address] [place] [address] Creatinine [Mass/Vol] 0.67 mg/dL Normal 0.58-0.96 [facility] Comment on above: Performed By: #### C MP, CBCDIF, PTT, MG1, PT ####[facility] [address] [place] [address] eGFR- Amer. >60 Normal [facility] Comment on above: Performed By: #### C MP, CBCDIF, PTT, MG1, PT ####[facility] [address] [place] [address] eGFR-All Other Races >60 Normal [facility] Comment on above: Result Comment: eGFR (Estimated [...] #### C MP, CBCDIF, PTT, MG1, PT ####[facility] Cmqecoqfow3702 [phone] Glucose [Mass/Vol] 92 mg/dL Normal 74-99 [facility] Comment on above: Result Comment: The [place] Diabetes Association (ADA) provides guidance for cutoff [...] Medical Care in Diabetes 2016, [place] Diabetes Association. Diabetes Care. 2016.39(Suppl 1). Performed By: #### C MP, CBCDIF, PTT, MG1, PT ####[facility] Qvbysytfgd6794 [phone] Potassium [Moles/Vol] 3.8 mmol/L Normal 3.7-5.1 [facility] Comment on above: Performed By: #### C MP, CBCDIF, PTT, MG1, PT ####[facility] [address] [place] [phone] Protein [Mass/Vol] 6.0 g/dL Low 6.3-8.0 [facility] Comment on above: Performed By: #### C MP, CBCDIF, PTT, MG1, PT ####[facility] [address] [place] [phone] Sodium [Moles/Vol] 140 mmol/L Normal 136-144 [facility] Comment on above: Performed By: #### C MP, CBCDIF, PTT, MG1, PT ####[facility] Ikvxrrqcnc2171 [phone] Urea nitrogen [Mass/Vol] 19 mg/dL Normal 10-04 [facility] Comment on above: Performed By: #### C MP, CBCDIF, PTT, MG1, PT ####[facility] Yroymvheqx5381 [phone] Confirm Blood Typeon 021 ABO/RH(D) Positive [facility] Comment on above: Performed By: #### 5 7021-8 #### [facility] CLIA [id number] 1000 [place], [place] [address] [place] [address] ED NOTEon 01-12-2021 ED NOTE HNO ID: [id number] Author: Anusha Pabon RN Service: ? Author Type: Registered Nurse Type: ED Notes Filed: 01/12/2021 5:50 PM Note Text: Report called to Marbella bruno. [facility] ED NOTE HNO ID: [id number] Author: Anusha Pabon RN Service: ? Author Type: Registered Nurse Type: ED Notes Filed: 01/12/2021 5:38 PM Note Text: 10 min heads up given [facility] ED NOTE HNO ID: [id number] Author: Miguel Angel Sams Service: ? Author Type: Parole Supervisor and Electron Microscopist Type: ED Notes Filed: 01/12/2021 12:05 PM Note Text: Complains of black stools since Friday S/P colonoscopy this past Friday. [facility] ED PROV NOTEon 01-12-2021 ED PROV NOTE HNO ID: [id number] Author: Juan Covarrubias MD Service: ? Author [...] grandmother S (more content not included)... Normal [facility] Expedited [id number] 01-13-20 SARS-CoV-2 (COVID-19) RNA DEMARCUS+probe Ql (Unsp spec) UPPER RESPIRATORY TRACT SWAB Normal [facility] Comment on above: Performed By: #### E XCOVD #### [facility] 1000 [facility] [phone] SARS-CoV-2 (COVID-19) RNA DEMARCUS+probe Ql (Unsp spec) Negative for COVID19 (SARS CoV2) by RT-PCR or equivalent method. Normal Negative for COVID19 (SARS CoV2) by RT-PCR or equivalent method. [facility] Comment on above: Result Comment: This test has been authorized by FDA under an Emergency Use Authorization (EUA). Performed By: #### E XCOVD #### [facility] 1000 [facility] [phone] HISTORY PHYSICALon HISTORY PHYSICAL HNO ID: [id number] Author: Selma Shepherd DO Service: Hospital Medicine Author Type: Physician Type: HANDP Filed: 01/12/2021 8:56 PM Note Text: HOSPITAL MEDICINE HISTORY AND PHYSICAL PCP: Galina Iraheta MD NIGHT AND WEEKEND COVERAGE: [facility]: Days: [phone], please page attending physician. Nights: [phone], please page [facility] Night coverage pager [phone]. SUBJECTIVE Chief Complaint: Rectal bleeding HPI: Ms. [...] 10/06/2007 Right (more content not included)... Normal [facility] Magnesiumon 01-12-2021 Magnesium [Mass/Vol] 2.0 mg/dL Normal 1.7-2.3 [facility] Comment on above: Performed By: #### C MP, CBCDIF, PTT, MG1, PT ####[facility] Yphyolmdve4986 [phone] NT Pro BNPon 01-12-2021 PRO B Natr Peptide 116 pg/mL Normal <450 [facility] Comment on above: Performed By: #### N TBNP ####[facility] Pgeiehrstz4566 [phone] NURSING PROGon 01-12-2021 NURSING PROG HNO ID: [id number] Author: Albania Perez RN Service: ? Author Type: Registered Nurse Type: Nursing Progress Note Filed: 01/12/2021 6:33 PM Note Text: Nursing Progress Note Patient Name: Christian Landrum Patient Location: [id number] Daily Note:1830-received pt from ED,no acute distress noted,on RA,oriented to the room,call light within reach. This note was completed by: Albania Bess [facility] Protimeon 01-12-2021 PT INR 2.9 High 0.9-1.3 [facility] Comment on above: Result Comment: Maricruz min K Antagonist (VKA) Therapeutic Range: INR 2 to 3 (Target INR of 2.5) Note: For patients treated with VKA drugs, such as warfarin, the [place] [employer] Physicians 2012 Guideline recommends [...] Chest 2012, 141:7S-47S Geri RA, et al. [facility] 2017, 70: 252-289 Performed By: #### C MP, CBCDIF, PTT, MG1, PT ####[phone] PT Sec 28.7 sec High 9.7-13.0 [facility] Comment on above: Performed By: #### C MP, CBCDIF, PTT, MG1, PT ####[facility] [address] [place] [address] Troponin Ton 01-12-2021 Troponin T <0.010 Normal 0.000-0.029 [facility] Comment on above: Performed By: #### T NT ####[facility] [address] [place] [address] Type and Screenon 01-12-2021 ABO/RH(D) Positive Normal [facility] Comment on above: Performed By: #### 5 7021-8 #### [facility] CLIA [id number] [address] [place] [address] [facility] Urinalysison 01-12-2021 Bilirubin, Urine Negative Normal Negative [facility] Comment on above: Performed By: #### U A, UAMIC ####[facility] [address] [place] [address] Clarity (U) Clear Normal Clear [facility] Comment on above: Performed By: #### U A, UAMIC ####[facility] [address] [place] [address] Color (U) Yellow Normal Yellow [facility] Comment on above: Performed By: #### U A, UAMIC ####[facility] [address] [place] [address] Glucose Ql (U) Negative Normal Negative [facility] Comment on above: Performed By: #### U A, UAMIC ####[facility] [address] [place] [address] Hemoglobin/Blood,Ur 2+ Critically abnormal Negative [facility] Comment on above: Performed By: #### U A, UAMIC ####[facility] [address] [place] [address] Ketones Ql (U) Negative Normal Negative [facility] Comment on above: Performed By: #### U A, UAMIC ####[facility] [address] [place] [address] Leukest 2+ Critically abnormal Negative [facility] Comment on above: Performed By: #### U A, UAMIC ####[facility] [address] [place] [address] Nitrite Ql (U) Negative Normal Negative [facility] Comment on above: Performed By: #### U A, UAMIC ####[facility] [address] [place] [address] pH (U) 6.5 [pH] Normal 5.0-8.0 [facility] Comment on above: Performed By: #### U A UAMIC ####[facility] [address] [place] [address] Protein, Urine Negative Normal Negative [facility] Comment on above: Performed By: #### U A UAMIC ####[facility] [address] [place] [address] Specific [place], Ur 1.010 Normal 1.005-1.030 [facility] Comment on above: Performed By: #### U A UAMIC ####[facility] [address] [place] [address] Urobilinogen Qn (U) 0.2 {Valentín'U}/dL Normal 0.2-1.0 [facility] Comment on above: Performed By: #### U A UAMIC ####[facility] [address] [place] [address] Urine Microscopic (FOR LAB U SE ONLY)on 01-12-2021 Cast SEE COMMENT Normal 0 [facility] Comment on above: Result Comment: 0 Performed By: #### U A UAMIC ####[facility] [address] [place] [address] Epithelial cells LM Ql (Urine sed) SEE COMMENT Normal [facility] Comment on above: Result Comment: 0-5 Squamous Epithelial Cells Performed By: #### U A UAMIC ####[facility] [address] [place] [address] RBC 5-10 Critically abnormal 0-3 [facility] Comment on above: Performed By: #### U A UAMIC ####[facility] [address] [place] [address] WBC 5-10 Critically abnormal 0-5 [facility] Comment on above: Performed By: #### U A UAMIC ####[facility] [address] [place] [address] NM CARDIAC PERF STRESS/PHARM on 01-10-2021 NM CARDIAC PERF STRESS/PHARM * * *Final Report* * * DATE OF EXAM: Jan 10 2021 11:30AM N 0006 - NM CARDIAC PERF STRESS/PHARM / PROCEDURE REASON: multiple diagnoses * * * * Physician Interpretation * * * * Stress Chute Tender Report: [facility] Date of service: 01/10/2021 9:33:53 AM Supervising [...] 60 minutes later. See administered doses below. [facility] Date of service: 01/10/2021 9:33:53 AM Indication: [...] unchanged with stress. Final Stress ECG Report: [facility] Date of service: 01/10/2021 9:33:53 AM Ordering physician: CECILIO IBARRA Specialist: Vira Odonnell Senior Clinical Research Associate: Lisa Lemus Stress ECG interpreting physician: Amari [...] 125/48 mmHg. The double product achieved was [id number]. Indication: Dyspnea on exertion Medical History and [...] 52 +----+--+---+---+ +-----+ (more content not included)... [facility] 01-09-2021 [facility] Telephone (CDLBME) CHRISTIAN LANDRUM ([id number]) 1935 F Date Time Provider Department 01/09/21 [...] Fully Assessed Reason for Visit: Reminder Call [[id number]] Prescriptions as of 01/09/2021 - omeprazole (PRILOSEC) [...] BY MOUTH EVERY DAY - glucosamine/msm/chondroitin A (TSRPMQYLUBJ-RKRGIF-ROS ORAL) Take 1 capsule by mouth once [...] mg injection (BENADRYL) - benzocaine 20% 1 [place] (TOPEX) Meds Comments as of 12/27/2016: Problem List As Of Date 01/09 (more content not included)... Normal [facility] XR Chest PA and Lateralon IMPRESSION: Mild bibasilar atelectasis/scarring. Transportation Engineer: GRANT Transcribe Date/Time: Nov 27 2020 4:34P [...] thoracic spine. DIVISION OF RADIOLOGY Provider, Sj Colindres - 11/27/2020 * * *Final Report* * [...] thoracic spine. IMPRESSION IMPRESSION: Mild bibasilar atelectasis/scarring. Transportation [facility] Transcribe Date/Time: Nov 27 2020 4:34P Dictated by : DUC ZHONG MD This examination was interpreted and the report reviewed and electronically signed by: DUC ZHONG MD on Nov 27 2020 4:35PM EST [facility] Radiology Study observation (narrative) [facility] XR Chest PA and LateralOrder ed By: Ccf Provider on 11-27-2020 [facility] XR Chest PA and Lateralon IMPRESSION: No acute radiographic abnormality. Transportation Engineer: [facility] Transcribe Date/Time: May 05 2020 3:09P Dictated [...] Unremarkable. DIVISION OF RADIOLOGY Provider, Sj ramirez [place] - 05/05/2020 * * *Final Report* * [...] Unremarkable. IMPRESSION IMPRESSION: No acute radiographic abnormality. Transportation Engineer: GRANT Transcribe Date/Time: May 05 2020 3:09P Dictated by : ALEJO GORDON MD This examination was interpreted and the report reviewed and electronically signed by: ALEJO GORDON MD on May 05 2020 3:20PM EST [facility] Radiology Study observation (narrative) [facility] XR Chest PA and LateralOrder ed By: Ccf Provider on 05-05-2020 [facility] BD DXA - AXIAL SKELETONon BD DXA - AXIAL SKELETON Final Report DATE OF EXAM: Oct 20 2019 11:23AM LDX 0804 - BD DXA - AXIAL SKELETON / PROCEDURE REASON: multiple diagnoses Physician Interpretation EXAM TITLE: BONE MINERAL DENSITOMETRY COMPARISON:None CLINICAL INDICATION/HISTORY: Postmenopausal TECHNIQUE: DXA Incomparable Things-Lingoing Advance v,11.4 examination was performed on the [...] at high risk for accelerated bone loss). Transportation Engineer: GRANT Transcribe Date/Time: Oct 21 2019 11:35A Dictated by : IVORY BENAVIDES MD This examination was interpreted and the report reviewed and electronically signed by: IVORY BENAVIDES MD on Oct 21 2019 11:36AM EST Normal [facility] Culture, urine Bacteria identified Cx Nom (U) Culture exhibits no growth. [facility] Work Phone: No Panel Information [facility] Vital Signs Date Time Vital Sign Value Performing Clinician Facility 11-22-2024 11:22-0400 Body height 162.[address] Galina Iraheta MD Work Phone: [facility] 11-22-2024 11:22-0400 Body mass index (BMI) [Ratio] 29.7 kg/m2 Dr. Galina Iraheta MD Work Phone: [facility] 11-22-2024 11:22-0400 Body temperature 98.5 [degF] Dr. Galina Iraheta MD Work Phone: 2(053)940-387135 [place] [address] 11-22-2024 11:22-0400 Body weight 78.[address] Galina Iraheta MD Work Phone: 3(230)454-355035 [place] [address] 11-22-2024 11:22-0400 Diastolic blood pressure 74 mm[Hg] Dr. Galina Iraheta MD Work Phone: 8(077)877-382775 [place] [address] 11-22-2024 11:22-0400 Heart rate 72 /min Dr. Galina Iraheta MD Work Phone: 1(213)687-190975 [place] [address] 11-22-2024 11:22-0400 Respiratory rate 16 /min Dr. Galina Iraheta MD Work Phone: 3(831)730-925175 [place] [address] 11-22-2024 11:22-0400 SaO2% (BldA) [Mass fraction] 95 % Dr. Galina Iraheta MD Work Phone: 5(837)703-089775 [place] [address] 11-22-2024 11:22-0400 Systolic blood pressure 147 mm[Hg] Dr. Galina Iraheta MD Work Phone: 4(172)155-963275 [place] [address] 10-22-2024 13:55-0400 Body height 162.[address] Galina Iraheta MD Work Phone: 5(046)126-759375 [place] [address] 10-22-2024 13:55-0400 Body mass index (BMI) [Ratio] 30.4 kg/m2 Dr. Galina Iraheta MD Work Phone: 6(442)046-226635 [place] [address] 10-22-2024 13:55-0400 Body weight 80.[address] Galina Iraheta MD Work Phone: 7(238)177-342875 [place] [address] 09-21-2024 13:31-0400 Body temperature 96.91 [degF] Cassidy Arreola IRON INSTALLER.INCOME TAX PREPARER Work Phone: [facility] 09-21-2024 13:31-0400 Diastolic blood pressure 64 mm[Hg] Cassidy Arreola IRON INSTALLER.INCOME TAX PREPARER Work Phone: [facility] 09-21-2024 13:31-0400 Heart rate 75 /min Cassidy Arreola IRON INSTALLER.INCOME TAX PREPARER Work Phone: [facility] 09-21-2024 13:31-0400 SaO2% (BldA) [Mass fraction] 97 % Cassidy Arreola IRON INSTALLER.INCOME TAX PREPARER Work Phone: [facility] 09-21-2024 13:31-0400 Systolic blood pressure 130 mm[Hg] Cassidy Arreola IRON INSTALLER.INCOME TAX PREPARER Work Phone: [facility] 09-14-2024 07:57-0400 Body temperature 97.6 [degF] Dr. Galina Iraheta MD Work Phone: 5(724)005-612635 [place] [address] 09-14-2024 07:57-0400 Diastolic blood pressure 75 mm[Hg] Dr. Galina Iraheta MD Work Phone: 5(148)717-459075 [place] [address] 09-14-2024 07:57-0400 Heart rate 82 /min Dr. Galina Iraheta MD Work Phone: 5(985)607-134775 [place] [address] 09-14-2024 07:57-0400 Respiratory rate 18 /min Dr. Galina Iraheta MD Work Phone: 6(693)101-436675 [place] [address] 09-14-2024 07:57-0400 SaO2% (BldA) [Mass fraction] 96 % Dr. Galina Iraheta MD Work Phone: 1(067)477-379075 [place] [address] 09-14-2024 07:57-0400 Systolic blood pressure 138 mm[Hg] Dr. Galina Iraheta MD Work Phone: 0(608)061-438675 [place] [address] 09-14-2024 05:45-0400 Body height 162.[address] Galina Iraheta MD Work Phone: 9(809)967-590075 [place] [address] 09-14-2024 05:45-0400 Body mass index (BMI) [Ratio] 30.4 kg/m2 Dr. Galina Iraheta MD Work Phone: 8(368)694-279375 [place] [address] 09-14-2024 05:45-0400 Body weight 80.[address] Galina Iraheta MD Work Phone: 5(776)873-504475 [place] [address] 09-07-2024 15:01-0400 Body temperature 97.4 [degF] Dr. Galina Iraheta MD Work Phone: 9(868)646-135475 [place] [address] 09-07-2024 15:01-0400 Diastolic blood pressure 75 mm[Hg] Dr. Galina Iraheta MD Work Phone: 1(529)968-934075 [place] [address] 09-07-2024 15:01-0400 Heart rate 71 /min Dr. Galina Iraheta MD Work Phone: 7(733)228-407475 [place] [address] 09-07-2024 15:01-0400 Respiratory rate 18 /min Dr. Galina Iraheta MD Work Phone: 6(648)837-702775 [place] [address] 09-07-2024 15:01-0400 SaO2% (BldA) [Mass fraction] 95 % Dr. Galina Iraheta MD Work Phone: 3(702)128-350075 [place] [address] 09-07-2024 15:01-0400 Systolic blood pressure 164 mm[Hg] Dr. Galina Iraheta MD Work Phone: 4(502)237-563775 [place] [address] 09-03-2024 14:12-0400 Body height 165.[address] Galina Iraheta MD Work Phone: 0(255)673-328775 [place] [address] 08-18-2024 14:34-0400 Body height 165.[address] Galina Iraheta MD Work Phone: 6(339)324-690375 [place] [address] 08-18-2024 14:34-0400 Body mass index (BMI) [Ratio] 29.1 kg/m2 Dr. Galina Iraheta MD Work Phone: 7(888)513-045075 [place] [address] 08-18-2024 14:34-0400 Body weight 79.[address] Galina Iraheta MD Work Phone: 7(372)232-715975 [place] [address] 08-13-2024 13:10-0400 Body height 165.[address] Galina Iraheta MD Work Phone: 1(666)642-118175 [place] [address] 03-12-2024 14:00-0500 Body temperature 98.91 [degF] [facility] Work Phone: 9(688)280-095818 [place] [address] 03-12-2024 14:00-0500 Diastolic blood pressure 73 mm[Hg] [facility] Work Phone: [facility] 03-12-2024 14:00-0500 Heart rate 68 /min [facility] Work Phone: [facility] 03-12-2024 14:00-0500 Systolic blood pressure 135 mm[Hg] [facility] Work Phone: [facility] 02-27-2024 14:58-0500 Body mass index (BMI) [Ratio] 31.12 kg/m2 [facility] Work Phone: [facility] 02-27-2024 14:58-0500 Body temperature 98.6 [degF] [facility] Work Phone: [facility] 02-27-2024 14:58-0500 Body weight 84.82 kg [facility] Work Phone: [facility] 02-27-2024 14:58-0500 Diastolic blood pressure 78 mm[Hg] [facility] Work Phone: [facility] 02-27-2024 14:58-0500 Heart rate 84 /min [facility] Work Phone: [facility] 02-27-2024 14:58-0500 SaO2% (BldA) [Mass fraction] 97 % [facility] Work Phone: [facility] 02-27-2024 14:58-0500 Systolic blood pressure 132 mm[Hg] [facility] Work Phone: [facility] 02-24-2024 14:01-0500 Body mass index (BMI) [Ratio] 31.12 kg/m2 Cassidy Arreola IRON INSTALLER.INCOME TAX PREPARER Work Phone: [facility] 02-24-2024 14:01-0500 Body temperature 98.49 [degF] Cassidy Arreola IRON INSTALLER.INCOME TAX PREPARER Work Phone: [facility] 02-24-2024 14:01-0500 Body weight 84.82 kg Cassidy Arreola IRON INSTALLER.INCOME TAX PREPARER Work Phone: [facility] 02-24-2024 14:01-0500 Diastolic blood pressure 73 mm[Hg] Cassidy Arreola IRON INSTALLER.INCOME TAX PREPARER Work Phone: [facility] 02-24-2024 14:01-0500 Heart rate 87 /min Cassidy Blackmonenter IRON INSTALLER.INCOME TAX PREPARER Work Phone: [facility] 02-24-2024 14:01-0500 SaO2% (BldA) [Mass fraction] 97 % Cassidy Blackmonenter IRON INSTALLER.INCOME TAX PREPARER Work Phone: [facility] 02-24-2024 14:01-0500 Systolic blood pressure 125 mm[Hg] Cassidy Blackmonenter IRON INSTALLER.INCOME TAX PREPARER Work Phone: [facility] 02-24-2024 13:20-0500 Body mass index (BMI) [Ratio] 31.12 kg/m2 [facility] Work Phone: [facility] 02-24-2024 13:20-0500 Body weight 84.82 kg [facility] Work Phone: [facility] 01-28-2024 11:06-0500 Body mass index (BMI) [Ratio] 30.41 kg/m2 [facility] Work Phone: [facility] 01-28-2024 11:06-0500 Body temperature 97.59 [degF] [facility] Work Phone: [facility] 01-28-2024 11:06-0500 Body weight 82.9 kg [facility] Work Phone: [facility] 01-28-2024 11:06-0500 Diastolic blood pressure 66 mm[Hg] [facility] Work Phone: [facility] 01-28-2024 11:06-0500 Heart rate 79 /min [facility] Work Phone: [facility] 01-28-2024 11:06-0500 Respiratory rate 18 /min [facility] Work Phone: [facility] 01-28-2024 11:06-0500 SaO2% (BldA) [Mass fraction] 96 % [facility] Work Phone: [facility] 01-28-2024 11:06-0500 Systolic blood pressure 124 mm[Hg] [facility] Work Phone: [facility] 12-11-2023 08:55-0400 Body temperature 98.01 [degF] [facility] Work Phone: [facility] 12-11-2023 08:55-0400 Diastolic blood pressure 68 mm[Hg] [facility] Work Phone: [facility] 12-11-2023 08:55-0400 Heart rate 78 /min [facility] Work Phone: [facility] 12-11-2023 08:55-0400 Respiratory rate 14 /min [facility] Work Phone: [facility] 12-11-2023 08:55-0400 SaO2% (BldA) [Mass fraction] 98 % [facility] Work Phone: [facility] 12-11-2023 08:55-0400 Systolic blood pressure 126 mm[Hg] [facility] Work Phone: [facility] 12-04-2023 08:11-0400 Body temperature 98.4 [degF] [facility] Work Phone: [facility] 12-04-2023 08:11-0400 Diastolic blood pressure 71 mm[Hg] [facility] Work Phone: [facility] 12-04-2023 08:11-0400 Heart rate 74 /min [facility] Work Phone: [facility] 12-04-2023 08:11-0400 Respiratory rate 16 /min [facility] Work Phone: [facility] 12-04-2023 08:11-0400 Systolic blood pressure 115 mm[Hg] [facility] Work Phone: [facility] 10-09-2023 10:49-0400 Body mass index (BMI) [Ratio] 30.35 kg/m2 [facility] Work Phone: [facility] 10-09-2023 10:49-0400 Body temperature 98.2 [degF] [facility] Work Phone: [facility] 10-09-2023 10:49-0400 Body weight 82.74 kg [facility] Work Phone: [facility] 10-09-2023 10:49-0400 Diastolic blood pressure 70 mm[Hg] [facility] Work Phone: [facility] 10-09-2023 10:49-0400 Heart rate 94 /min [facility] Work Phone: [facility] 10-09-2023 10:49-0400 Respiratory rate 16 /min [facility] Work Phone: [facility] 10-09-2023 10:49-0400 SaO2% (BldA) [Mass fraction] 97 % [facility] Work Phone: [facility] 10-09-2023 10:49-0400 Systolic blood pressure 142 mm[Hg] [facility] Work Phone: [facility] 09-12-2023 11:10-0400 Body temperature 97.81 [degF] [facility] Work Phone: [facility] 09-12-2023 11:10-0400 Diastolic blood pressure 61 mm[Hg] [facility] Work Phone: [facility] 09-12-2023 11:10-0400 Heart rate 90 /min [facility] Work Phone: [facility] 09-12-2023 11:10-0400 Respiratory rate 16 /min [facility] Work Phone: [facility] 09-12-2023 11:10-0400 Systolic blood pressure 136 mm[Hg] [facility] Work Phone: [facility] 08-28-2023 11:00-0400 Body temperature 98.8 [degF] [facility] Work Phone: [facility] 08-28-2023 11:00-0400 Diastolic blood pressure 56 mm[Hg] [facility] Work Phone: [facility] 08-28-2023 11:00-0400 Heart rate 86 /min [facility] Work Phone: [facility] 08-28-2023 11:00-0400 Systolic blood pressure 130 mm[Hg] [facility] Work Phone: [facility] 08-19-2023 11:01-0400 Body temperature 98.71 [degF] Cassidy Blackmonenter IRON INSTALLER.INCOME TAX PREPARER Work Phone: [facility] 08-19-2023 11:01-0400 Diastolic blood pressure 66 mm[Hg] Cassidy Arreola IRON INSTALLER.INCOME TAX PREPARER Work Phone: [facility] 08-19-2023 11:01-0400 Heart rate 87 /min Cassidy Arreola IRON INSTALLER.INCOME TAX PREPARER Work Phone: [facility] 08-19-2023 11:01-0400 SaO2% (BldA) [Mass fraction] 97 % Cassidy Arreola IRON INSTALLER.INCOME TAX PREPARER Work Phone: [facility] 08-19-2023 11:01-0400 Systolic blood pressure 131 mm[Hg] Cassidy Blackmonenter IRON INSTALLER.INCOME TAX PREPARER Work Phone: [facility] 07-15-2023 14:28-0400 Body height 165.1 cm Vikash Sylvester IRON INSTALLER.INCOME TAX PREPARER Work Phone: [facility] 07-15-2023 14:28-0400 Body mass index (BMI) [Ratio] 29.79 kg/m2 Vikash Sylvester IRON INSTALLER.INCOME TAX PREPARER Work Phone: [facility] 07-15-2023 14:28-0400 Body weight 81.19 kg Vikash Sylvester IRON INSTALLER.INCOME TAX PREPARER Work Phone: [facility] 07-15-2023 14:28-0400 Diastolic blood pressure 84 mm[Hg] Vikash Sylvester IRON INSTALLER.INCOME TAX PREPARER Work Phone: [facility] 07-15-2023 14:28-0400 Systolic blood pressure 122 mm[Hg] Vikash Sylvester IRON INSTALLER.INCOME TAX PREPARER Work Phone: [facility] 07-04-2023 11:28-0400 Body weight 80.92 kg Thalia Monterroso MD Work Phone: [facility] 07-04-2023 11:28-0400 Diastolic blood pressure 65 mm[Hg] Thalia Monterroso MD Work Phone: [facility] 07-04-2023 11:28-0400 Heart rate 80 /min Thalia Monterroso MD Work Phone: [facility] 07-04-2023 11:28-0400 Systolic blood pressure 141 mm[Hg] Thalia Monterroso MD Work Phone: [facility] 06-16-2023 14:16-0400 Body weight 82.1 kg Cecilio Amalfitano DO Work Phone: [facility] 06-16-2023 14:16-0400 Diastolic blood pressure 68 mm[Hg] Cecilio Amalfitano DO Work Phone: [facility] 06-16-2023 14:16-0400 Heart rate 79 /min Cecilio Amalfitprecious DO Work Phone: [facility] 06-16-2023 14:16-0400 SaO2% (BldA) [Mass fraction] 96 % Cecilio Amalfitano DO Work Phone: [facility] 06-16-2023 14:16-0400 Systolic blood pressure 126 mm[Hg] Cecilio Amalfitano DO Work Phone: [facility] 04-07-2023 13:01-0500 Body height 165.[address] Galina Iraheta Work Phone: [facility] 02-11-2023 10:15-0500 Body temperature 97.9 [degF] Cassidy Arreola IRON INSTALLER.INCOME TAX PREPARER Work Phone: [facility] 02-11-2023 10:15-0500 Body weight 80.74 kg Cassidy Arreola IRON INSTALLERFrederickINCOME TAX PREPARER Work Phone: [facility] 02-11-2023 10:15-0500 Diastolic blood pressure 70 mm[Hg] Cassidy Arreola IRON INSTALLER.INCOME TAX PREPARER Work Phone: [facility] 02-11-2023 10:15-0500 Heart rate 62 /min Cassidy Arreola IRON INSTALLER.INCOME TAX PREPARER Work Phone: [facility] 02-11-2023 10:15-0500 SaO2% (BldA) [Mass fraction] 99 % Cassidy Arreola IRON INSTALLER.INCOME TAX PREPARER Work Phone: [facility] 02-11-2023 10:15-0500 Systolic blood pressure 124 mm[Hg] Cassidy Arreola IRON INSTALLER.INCOME TAX PREPARER Work Phone: [facility] 12-13-2022 14:31-0400 Body height 167.6 cm Juliet Gaffney APRN.INCOME TAX PREPARER Work Phone: [facility] 12-13-2022 14:31-0400 Body weight 79.38 kg Juliet Gaffney APRN.INCOME TAX PREPARER Work Phone: [facility] 12-13-2022 14:31-0400 Diastolic blood pressure 60 mm[Hg] Juliet Gaffney APRN.INCOME TAX PREPARER Work Phone: [facility] 12-13-2022 14:31-0400 Heart rate 68 /min Juliet Gaffney APRN.INCOME TAX PREPARER Work Phone: [facility] 12-13-2022 14:31-0400 SaO2% (BldA) [Mass fraction] 97 % Juliet Gaffney APRN.INCOME TAX PREPARER Work Phone: [facility] 12-13-2022 14:31-0400 Systolic blood pressure 130 mm[Hg] Juliet Gaffney APRN.INCOME TAX PREPARER Work Phone: [facility] 09-05-2022 09:20-0400 Body height 167.6 cm Cecilio Ibarra DO Work Phone: [facility] 09-05-2022 09:20-0400 Body weight 78.02 kg Cecilio Ibarra DO Work Phone: [facility] 09-05-2022 09:20-0400 Diastolic blood pressure 64 mm[Hg] Cecilio Ibarra DO Work Phone: [facility] 09-05-2022 09:20-0400 Heart rate 69 /min Cecilio Ibarra DO Work Phone: [facility] 09-05-2022 09:20-0400 Systolic blood pressure 124 mm[Hg] Cecilio Ibarra DO Work Phone: [facility] 08-27-2022 11:27-0400 Body temperature 98.4 [degF] Cassidy Arreola IRON INSTALLER.INCOME TAX PREPARER Work Phone: [facility] 08-27-2022 11:27-0400 Body weight 76.66 kg Cassidy Arreola IRON INSTALLER.INCOME TAX PREPARER Work Phone: [facility] 08-27-2022 11:27-0400 Diastolic blood pressure 56 mm[Hg] Cassidy Arreola IRON INSTALLER.INCOME TAX PREPARER Work Phone: [facility] 08-27-2022 11:27-0400 Heart rate 73 /min Cassidy Arreola IRON INSTALLER.INCOME TAX PREPARER Work Phone: [facility] 08-27-2022 11:27-0400 SaO2% (BldA) [Mass fraction] 96 % [place] Arreola IRON INSTALLER.INCOME TAX PREPARER Work Phone: [facility] 08-27-2022 11:27-0400 Systolic blood pressure 116 mm[Hg] [place] Arreola IRON INSTALLER.INCOME TAX PREPARER Work Phone: [facility] 06-05-2022 11:03-0400 Body temperature 97.81 [degF] [place] Arreola IRON INSTALLER.INCOME TAX PREPARER Work Phone: [facility] 06-05-2022 11:03-0400 Body weight 77.34 kg [place] Arreola IRON INSTALLER.INCOME TAX PREPARER Work Phone: [facility] 06-05-2022 11:03-0400 Diastolic blood pressure 54 mm[Hg] Cassidy Arreola IRON INSTALLER.INCOME TAX PREPARER Work Phone: [facility] 06-05-2022 11:03-0400 Heart rate 74 /min Cassidy Arreola IRON INSTALLER.INCOME TAX PREPARER Work Phone: [facility] 06-05-2022 11:03-0400 SaO2% (BldA) [Mass fraction] 97 % Cassidy Arreola IRON INSTALLER.INCOME TAX PREPARER Work Phone: [facility] 06-05-2022 11:03-0400 Systolic blood pressure 116 mm[Hg] Cassidy Arreola IRON INSTALLER.INCOME TAX PREPARER Work Phone: [facility] 04-17-2022 09:47-0500 Body temperature 97.9 [degF] [facility] Work Phone: [facility] 04-17-2022 09:47-0500 Diastolic blood pressure 60 mm[Hg] [facility] Work Phone: [facility] 04-17-2022 09:47-0500 Heart rate 77 /min [facility] Work Phone: [facility] 04-17-2022 09:47-0500 SaO2% (BldA) [Mass fraction] 97 % [facility] Work Phone: [facility] 04-17-2022 09:47-0500 Systolic blood pressure 126 mm[Hg] [facility] Work Phone: [facility] 04-15-2022 14:39-0500 Body temperature 97.2 [degF] [facility] Work Phone: [facility] 04-15-2022 14:39-0500 Diastolic blood pressure 62 mm[Hg] [facility] Work Phone: [facility] 04-15-2022 14:39-0500 Heart rate 68 /min [facility] Work Phone: [facility] 04-15-2022 14:39-0500 Respiratory rate 16 /min [facility] Work Phone: [facility] 04-15-2022 14:39-0500 Systolic blood pressure 135 mm[Hg] [facility] Work Phone: [facility] 04-12-2022 13:55-0500 Body temperature 97.7 [degF] [facility] Work Phone: [facility] 04-12-2022 13:55-0500 Diastolic blood pressure 47 mm[Hg] [facility] Work Phone: [facility] 04-12-2022 13:55-0500 Heart rate 71 /min [facility] Work Phone: [facility] 04-12-2022 13:55-0500 Systolic blood pressure 119 mm[Hg] [facility] Work Phone: [facility] 04-10-2022 10:54-0500 Body temperature 97.3 [degF] [facility] Work Phone: [facility] 04-10-2022 10:54-0500 Diastolic blood pressure 54 mm[Hg] [facility] Work Phone: [facility] 04-10-2022 10:54-0500 Heart rate 78 /min [facility] Work Phone: [facility] 04-10-2022 10:54-0500 Systolic blood pressure 134 mm[Hg] [facility] Work Phone: [facility] 04-09-2022 14:29-0500 Body height 167.6 cm Taty Perez APRN.INCOME TAX PREPARER Work Phone: [facility] 04-09-2022 14:29-0500 Body weight 76.66 kg Taty Perez APRN.INCOME TAX PREPARER Work Phone: [facility] 04-09-2022 14:29-0500 Diastolic blood pressure 58 mm[Hg] Taty Perez APRN.INCOME TAX PREPARER Work Phone: [facility] 04-09-2022 14:29-0500 Heart rate 75 /min Taty Perez APRN.INCOME TAX PREPARER Work Phone: [facility] 04-09-2022 14:29-0500 SaO2% (BldA) [Mass fraction] 98 % Taty Perez APRN.INCOME TAX PREPARER Work Phone: [facility] 04-09-2022 14:29-0500 Systolic blood pressure 118 mm[Hg] Taty Perez APRN.INCOME TAX PREPARER Work Phone: [facility] 04-08-2022 11:01-0500 Body temperature 97.3 [degF] [facility] Work Phone: [facility] 04-08-2022 11:01-0500 Diastolic blood pressure 57 mm[Hg] [facility] Work Phone: [facility] 04-08-2022 11:01-0500 Heart rate 79 /min [facility] Work Phone: [facility] 04-08-2022 11:01-0500 Systolic blood pressure 125 mm[Hg] [facility] Work Phone: [facility] 03-06-2022 14:21-0500 Body temperature 97.11 [degF] Cassidy Arreola IRON INSTALLER.INCOME TAX PREPARER Work Phone: [facility] 03-06-2022 14:21-0500 Body weight 76.43 kg Cassidy Arreola IRON INSTALLER.INCOME TAX PREPARER Work Phone: [facility] 03-06-2022 14:21-0500 Diastolic blood pressure 57 mm[Hg] Cassidy Arreola IRON INSTALLER.INCOME TAX PREPARER Work Phone: [facility] 03-06-2022 14:21-0500 Heart rate 72 /min Cassidy Arreola IRON INSTALLER.INCOME TAX PREPARER Work Phone: [facility] 03-06-2022 14:21-0500 SaO2% (BldA) [Mass fraction] 100 % Cassidy Arreola IRON INSTALLER.INCOME TAX PREPARER Work Phone: [facility] 03-06-2022 14:21-0500 Systolic blood pressure 119 mm[Hg] Cassidy Arreola IRON INSTALLER.INCOME TAX PREPARER Work Phone: [facility] 03-06-2022 13:44-0500 Body temperature 97 [degF] Dr. Galina Iraheta Work Phone: [facility] 03-06-2022 13:44-0500 Diastolic blood pressure 64 mm[Hg] Dr. Galina Iraheta Work Phone: [facility] 03-06-2022 13:44-0500 Heart rate 68 /min Dr. Galina Iraheta Work Phone: [facility] 03-06-2022 13:44-0500 Respiratory rate 16 /min Dr. Galina Iraheta Work Phone: [facility] 03-06-2022 13:44-0500 SaO2% (BldA) [Mass fraction] 99 % Dr. Galina Iraheta Work Phone: [facility] 03-06-2022 13:44-0500 Systolic blood pressure 132 mm[Hg] Dr. Galina Iraheta Work Phone: [facility] 03-06-2022 08:50-0500 Body height 165.[address] Galina Iraheta Work Phone: [facility] 03-06-2022 08:50-0500 Body mass index (BMI) [Ratio] 27.3 kg/m2 Dr. Galina Iraheta Work Phone: [facility] 03-06-2022 08:50-0500 Body weight 74.[address] Galina Iraheta Work Phone: [facility] 01-02-2022 13:31-0400 Body height 167.6 cm Basilia Hernández MD Work Phone: [facility] 01-02-2022 13:31-0400 Body weight 74.84 kg Basilia Hernández MD Work Phone: [facility] 01-02-2022 13:31-0400 Diastolic blood pressure 62 mm[Hg] Basilia Hernández MD Work Phone: [facility] 01-02-2022 13:31-0400 Systolic blood pressure 126 mm[Hg] Basilia Hernández MD Work Phone: [facility] 12-28-2021 15:09-0400 Body temperature 98.9 [degF] Dr. Galina Iraheta Work Phone: [facility] 12-28-2021 15:09-0400 Diastolic blood pressure 79 mm[Hg] Dr. Galina Iraheta Work Phone: [facility] 12-28-2021 15:09-0400 Heart rate 70 /min Dr. Galina Iraheta Work Phone: [facility] 12-28-2021 15:09-0400 Respiratory rate 16 /min Dr. Galina Iraheta Work Phone: [facility] 12-28-2021 15:09-0400 SaO2% (BldA) [Mass fraction] 94 % Dr. Galina Iraheta Work Phone: [facility] 12-28-2021 15:09-0400 Systolic blood pressure 125 mm[Hg] Dr. Galina Iraheta Work Phone: [facility] 12-28-2021 11:18-0400 Body height 165.[address] Gailna Iraheta Work Phone: [facility] Work Phone: 12-28-2021 11:18-0400 Body mass index (BMI) [Ratio] 27.4 kg/m2 Dr. Galina Iraheta Work Phone: [facility] 12-28-2021 11:18-0400 Body weight 74.[address] Galina Iraheta Work Phone: [facility] 10-18-2021 18:15-0400 Diastolic blood pressure 68 mm[Hg] [facility] Work Phone: 10-18-2021 18:15-0400 Heart rate 74 /min [facility] Work Phone: 10-18-2021 18:15-0400 Respiratory rate 13 /min [facility] Work Phone: 10-18-2021 18:15-0400 SaO2% (BldA) [Mass fraction] 99 % [facility] Work Phone: 10-18-2021 18:15-0400 Systolic blood pressure 134 mm[Hg] [facility] Work Phone: 10-18-2021 17:15-0400 Body temperature 98.7 [degF] [facility] Work Phone: 10-18-2021 09:50-0400 Body height 167.64 cm [facility] Work Phone: 10-18-2021 09:50-0400 Body mass index (BMI) [Ratio] 27.4 kg/m2 [facility] Work Phone: 10-18-2021 09:50-0400 Body weight 77.11 kg [facility] Work Phone: 10-11-2021 07:56-0400 Body temperature 98.01 [degF] Jeancarlos Hooker MD Work Phone: [facility] 10-11-2021 07:56-0400 Body weight 77.56 kg Jeancarlos Hooker MD Work Phone: [facility] 10-11-2021 07:56-0400 Diastolic blood pressure 48 mm[Hg] Jeancarlos Hooker MD Work Phone: [facility] 10-11-2021 07:56-0400 Heart rate 78 /min Jeancarlos Hooker MD Work Phone: [facility] 10-11-2021 07:56-0400 Respiratory rate 16 /min Jeancarlos Hooker MD Work Phone: [facility] 10-11-2021 07:56-0400 SaO2% (BldA) [Mass fraction] 100 % Jeancarlos Hooker MD Work Phone: [facility] 10-11-2021 07:56-0400 Systolic blood pressure 115 mm[Hg] Jeancarlos Hooker MD Work Phone: [facility] 09-26-2021 14:00-0400 Body height 167.6 cm Basilia Hernández MD Work Phone: [facility] 09-26-2021 14:00-0400 Body weight 77.11 kg Basilia Hernández MD Work Phone: [facility] 09-18-2021 09:15-0400 Body temperature 97.39 [degF] Cassidy Blackmonenter IRON INSTALLER.[employer]COME TAX PREPARER Work Phone: [facility] 09-18-2021 09:15-0400 Body weight 77.11 kg Cassidy Arreola IRON INSTALLER.INCOME TAX PREPARER Work Phone: [facility] 09-18-2021 09:15-0400 Diastolic blood pressure 47 mm[Hg] Cassidy Blackmonenter IRON INSTALLER.INCOME TAX PREPARER Work Phone: [facility] 09-18-2021 09:15-0400 Heart rate 75 /min Cassidy Blackmonenter IRON INSTALLER.INCOME TAX PREPARER Work Phone: [facility] 09-18-2021 09:15-0400 Systolic blood pressure 108 mm[Hg] Cassidy Arreola IRON INSTALLER.INCOME TAX PREPARER Work Phone: [facility] 09-18-2021 09:12-0400 Body weight 77.25 kg [facility] Work Phone: [facility] 09-11-2021 10:39-0400 Body weight 76.66 kg Jayde Hebert MD Work Phone: [facility] 09-11-2021 10:39-0400 Diastolic blood pressure 58 mm[Hg] Jayde Hebert MD Work Phone: [facility] 09-11-2021 10:39-0400 Systolic blood pressure 124 mm[Hg] Jayde Hebert MD Work Phone: [facility] 09-05-2021 13:15-0400 Body height 167.6 cm Cecilio Ibarra DO Work Phone: [facility] 09-05-2021 13:15-0400 Body weight 77.66 kg Cecilio Ibarra DO Work Phone: [facility] 09-05-2021 13:15-0400 Diastolic blood pressure 54 mm[Hg] Cecilio Ibarra DO Work Phone: [facility] 09-05-2021 13:15-0400 Heart rate 73 /min Cecilio Ibarra DO Work Phone: [facility] 09-05-2021 13:15-0400 SaO2% (BldA) [Mass fraction] 97 % Cecilio Ibarra DO Work Phone: [facility] 09-05-2021 13:15-0400 Systolic blood pressure 104 mm[Hg] Cecilio Ibarra DO Work Phone: [facility] 08-30-2021 13:17-0400 Body weight 78.47 kg Jayde Hebert MD Work Phone: [facility] 08-26-2021 14:42-0400 Heart rate 76 /min [facility] Work Phone: 08-26-2021 14:42-0400 Respiratory rate 17 /min [facility] Work Phone: 08-26-2021 14:42-0400 SaO2% (BldA) [Mass fraction] 97 % [facility] Work Phone: 08-26-2021 13:01-0400 Diastolic blood pressure 49 mm[Hg] [facility] Work Phone: 08-26-2021 13:01-0400 Systolic blood pressure 111 mm[Hg] [facility] Work Phone: 08-26-2021 12:13-0400 Body height 167.64 cm [facility] Work Phone: 08-26-2021 12:13-0400 Body mass index (BMI) [Ratio] 27.6 kg/m2 [facility] Work Phone: 08-26-2021 12:13-0400 Body temperature 98.1 [degF] [facility] Work Phone: 08-26-2021 12:13-0400 Body weight 77.56 kg [facility] Work Phone: 08-23-2021 15:21-0400 Body temperature 98 [degF] [facility] Work Phone: 08-23-2021 15:21-0400 Diastolic blood pressure 41 mm[Hg] [facility] Work Phone: 08-23-2021 15:21-0400 Heart rate 72 /min [facility] Work Phone: 08-23-2021 15:21-0400 Respiratory rate 16 /min [facility] Work Phone: 08-23-2021 15:21-0400 SaO2% (BldA) [Mass fraction] 96 % [facility] Work Phone: 08-23-2021 15:-0400 Systolic blood pressure 105 mm[Hg] [facility] Work Phone: 08-23-2021 12:24-0400 Body height 167.64 cm [facility] Work Phone: 08-23-2021 12:24-0400 Body mass index (BMI) [Ratio] 27.8 kg/m2 [facility] Work Phone: 08-23-2021 12:24-0400 Body weight 78.1 kg [facility] Work Phone: 08-15-2021 16:04-0400 Body weight 78.47 kg Jayde Hebert MD Work Phone: [facility] 08-15-2021 16:04-0400 Diastolic blood pressure 58 mm[Hg] Jayde Hebert MD Work Phone: [facility] 08-15-2021 16:04-0400 Systolic blood pressure 118 mm[Hg] Jayde Hebert MD Work Phone: [facility] 08-08-2021 14:10-0400 Body weight 78.02 kg An Older IRON INSTALLER.INCOME TAX PREPARER Work Phone: [facility] 08-08-2021 14:10-0400 Diastolic blood pressure 66 mm[Hg] An Older IRON INSTALLER.INCOME TAX PREPARER Work Phone: [facility] 08-08-2021 14:10-0400 Heart rate 68 /min An Older IRON INSTALLER.INCOME TAX PREPARER Work Phone: [facility] 08-08-2021 14:10-0400 Respiratory rate 16 /min An Older IRON INSTALLER.INCOME TAX PREPARER Work Phone: [facility] 08-08-2021 14:10-0400 Systolic blood pressure 116 mm[Hg] An Older IRON INSTALLER.INCOME TAX PREPARER Work Phone: [facility] 07-05-2021 09:41-0400 Body height 167.6 cm Johnny Turk MD Work Phone: [facility] 07-05-2021 09:41-0400 Body temperature 98.6 [degF] Johnny Turk MD Work Phone: [facility] 07-05-2021 09:41-0400 Body weight 79.83 kg Johnny Turk MD Work Phone: [facility] 07-05-2021 09:41-0400 Diastolic blood pressure 60 mm[Hg] Johnny Turk MD Work Phone: [facility] 07-05-2021 09:41-0400 Heart rate 69 /min Johnny Turk MD Work Phone: [facility] 07-05-2021 09:41-0400 SaO2% (BldA) [Mass fraction] 100 % Johnny Turk MD Work Phone: [facility] 07-05-2021 09:41-0400 Systolic blood pressure 106 mm[Hg] Johnny Turk MD Work Phone: [facility] 07-03-2021 11:58-0400 Body temperature 98.4 [degF] Alma Older IRON INSTALLER.INCOME TAX PREPARER Work Phone: [facility] 07-03-2021 11:58-0400 Body weight 78.93 kg Alma Older IRON INSTALLER.INCOME TAX PREPARER Work Phone: [facility] 07-03-2021 11:58-0400 Diastolic blood pressure 64 mm[Hg] Alma Older IRON INSTALLER.INCOME TAX PREPARER Work Phone: [facility] 07-03-2021 11:58-0400 Heart rate 67 /min Alma Older IRON INSTALLER.INCOME TAX PREPARER Work Phone: [facility] 07-03-2021 11:58-0400 Respiratory rate 12 /min Alma Older IRON INSTALLER.INCOME TAX PREPARER Work Phone: [facility] 07-03-2021 11:58-0400 SaO2% (BldA) [Mass fraction] 97 % Alma Older IRON INSTALLER.INCOME TAX PREPARER Work Phone: [facility] 07-03-2021 11:58-0400 Systolic blood pressure 118 mm[Hg] Alma Older IRON INSTALLER.[facility] Work Phone: [facility] 07-03-2021 04:44-0400 Diastolic blood pressure 64 mm[Hg] [facility] Work Phone: 07-03-2021 04:44-0400 Heart rate 69 /min [facility] Work Phone: 07-03-2021 04:44-0400 Respiratory rate 18 /min [facility] Work Phone: 07-03-2021 04:44-0400 SaO2% (BldA) [Mass fraction] 96 % [facility] Work Phone: 07-03-2021 04:44-0400 Systolic blood pressure 119 mm[Hg] [facility] Work Phone: 07-02-2021 23:21-0400 Body height 167.64 cm [facility] Work Phone: 07-02-2021 23:21-0400 Body mass index (BMI) [Ratio] 28.4 kg/m2 [facility] Work Phone: 07-02-2021 23:21-0400 Body temperature 97.2 [degF] [facility] Work Phone: 07-02-2021 23:21-0400 Body weight 79.9 kg [facility] Work Phone: 06-05-2021 10:40-0400 Body height 167.6 cm Aby Bruner DO Work Phone: [facility] 06-05-2021 10:40-0400 Body weight 79.83 kg Aby Bruner DO Work Phone: [facility] 06-05-2021 10:40-0400 Diastolic blood pressure 62 mm[Hg] Aby Bruner DO Work Phone: [facility] 06-05-2021 10:40-0400 Heart rate 65 /min Aby Bruner DO Work Phone: [facility] 06-05-2021 10:40-0400 SaO2% (BldA) [Mass fraction] 99 % Aby Bruner DO Work Phone: [facility] 06-05-2021 10:40-0400 Systolic blood pressure 110 mm[Hg] Aby Bruner DO Work Phone: [facility] Encounters Encounter Date Encounter Type Care Provider Facility Start: 01-11-2025 End: 01-11-2025 ambulatory [facility] [employer] Facility:[facility] Start: 01-03-2025 ambulatory Reji POPE Facility:[facility] Start: 12-23-2024 End: 12-23-2024 ambulatory [facility] [employer] Facility:[facility] Start: 12-22-2024 End: 12-22-2024 ambulatory SELF Facility:[facility] Start: 11-29-2024 ambulatory Reji POPE Facility:[facility] Start: 11-29-2024 Registered Referred Reji Reyna MD [facility] Start: 11-23-2024 End: 11-23-2024 Telemedicine consultation with patient Thalia Monterroso MD Work Phone: Rheumatology Start: 11-23-2024 End: 11-23-2024 ambulatory Tahlia Monterroso MD Work Phone: Rheumatology Comment on above: Rheumatoid arthritis involving multiple sites, unspecified whether rheumatoid factor present (HCC) (Primary Dx); Senile osteoporosis; On prednisone therapy Start: 11-22-2024 End: 11-22-2024 Patient encounter procedure Juliet NUÑEZC -[facility] Work Phone: Start: 11-22-2024 End: 11-22-[address] Galina Iraheta MD Work Phone: -[facility] Start: 11-03-2024 ambulatory Reji modi OLS Facility:[facility] Start: 11-03-2024 Registered Referred Reji Reyna MD [facility] Start: 11-02-2024 End: 11-02-[address] Galnia Iraheta MD Work Phone: -[facility] Start: 11-02-2024 End: 11-02-[address] Reji Reyna MD -[facility] Work Phone: Start: 11-01-2024 ambulatory Reji modi OLS Facility:[facility] Start: 11-01-2024 Registered Referred Reji Reyna MD [facility] Start: 10-22-2024 End: 10-22-[address] Charles Ramos MD -[facility] Start: 10-22-2024 End: 10-22-[address] Galina Iraheta MD Work Phone: -[facility] Start: 10-13-2024 End: 10-13-2024 Discharged Recurring Carmella Deluca NP-Ana M -[facility] Work Phone: Start: 10-13-2024 Registered Recurring Carmella Deluca NP-C -Occupational Therapy Work Phone: Start: 10-13-2024 End: 10-13-[address] Reji Reyna MD Work Phone: -Occupational Therapy Start: 10-04-2024 ambulatory Reji modi OLS Facility:[facility] Start: 10-04-2024 [facility] Start: 09-24-2024 End: 09-24-[address] Charles Ramos MD -[facility] Start: 09-24-2024 End: 09-24-[address] Galina Iraheta MD Work Phone: -[facility] Start: 09-22-2024 End: 09-22-[address] Galina Iraheta MD Work Phone: -[facility] Start: 09-22-2024 End: 09-22-2024 Patient encounter procedure Galina SCHAEFER -[facility] Work Phone: Start: 09-22-2024 End: 11-22-2024 Follow-up encounter Thalia Monterroso MD Work Phone: Rheumatology Start: 09-22-2024 End: 09-22-2024 Telephone encounter Cassidy Arreola APRN.INCOME TAX PREPARER Work Phone: Hematology/Oncology Start: 09-21-2024 End: 09-21-2024 Patient encounter procedure Cassidy Arreola APRN.INCOME TAX PREPARER Work Phone: Hematology/Oncology Start: 09-21-2024 End: 09-21-2024 ambulatory [facility] Work Phone: Hematology/Oncology Comment on above: Rheumatoid arthritis involving multiple sites, unspecified whether rheumatoid factor present (HCC) (Primary Dx); Senile osteoporosis; Personal history of breast cancer; Iron deficiency anemia due to chronic blood loss Personal history of breast cancer (Primary Dx); Iron deficiency anemia due to chronic blood loss Start: 09-20-2024 End: 09-20-[address] Galina Iraheta MD Work Phone: -[facility] Start: 09-20-2024 End: 09-20-2024 [facility] Start: 09-14-2024 End: 09-14-2024 Emergency department patient visit Dr. Galina Iraheta MD Work Phone: -Emergency Department Work Phone: Start: 09-14-2024 Non-patient / Non-visit Dr. Bowen Abdullahi MD -[facility] Work Phone: Start: 09-07-2024 End: 09-07-2024 Patient encounter procedure Juliet SCHAEFER -[facility] Work Phone: Start: 09-07-2024 End: 09-07-[address] Galina Iraheta MD Work Phone: [facility] Work Phone: Start: 09-03-2024 End: 09-03-[address] Charles Ramos MD -[facility] Start: 09-03-2024 End: 09-03-[address] Galina Iraheta MD Work Phone: [facility] Work Phone: Start: 08-30-2024 End: 09-13-2024 Telephone encounter Thalia Monterroso MD Work Phone: Rheumatology Comment on above: Scheduling Start: 08-30-2024 ambulatory Reji POPE Facility:[facility] Start: 08-30-2024 Registered Referred Reji Reyna MD [facility] Start: 08-27-2024 End: 08-27-2024 ambulatory Thalia Monterroso MD Work Phone: Rheumatology Comment on above: Rheumatoid arthritis involving multiple sites, unspecified whether rheumatoid factor present (HCC) (Primary Dx); Senile osteoporosis; On prednisone therapy [facility] Start: 08-27-2024 End: 08-27-2024 Telemedicine consultation with patient Thalia Monterroso MD Work Phone: Rheumatology Start: 08-18-2024 End: 08-18-[address] Charles Ramos MD -[facility] Start: 08-18-2024 End: 08-18-[address] Galina Iraheta MD Work Phone: [facility] Work Phone: Start: 08-16-2024 End: 08-16-[address] Galina Iraheta MD Work Phone: -[facility] Start: 08-16-2024 End: 08-16-2024 Patient encounter procedure Galina SCHAEFER -[facility] Work Phone: Start: 08-13-2024 End: 08-13-[address] Charles Ramos MD -[facility] Start: 08-13-2024 End: 08-13-[address] Galina Iraheta MD Work Phone: [facility] Work Phone: Start: 08-12-2024 End: 08-12-[address] Galina Iraheta MD Work Phone: [facility] Work Phone: Start: 08-12-2024 End: 08-12-2024 Patient encounter procedure Galina SCHAEFER -[facility] Work Phone: Start: 08-06-2024 End: 08-06-[address] Galina Iraheta MD Work Phone: [facility] Work Phone: Start: 08-06-2024 End: 08-06-[address] Hiwot Abdullahi MD -[facility] Work Phone: Start: 08-06-2024 End: 08-06-2024 ambulatory Reji Reyna Facility:[facility] Start: 08-02-2024 End: 08-02-2024 Departed Referred Reji [facility] Start: 08-02-2024 End: 08-02-2024 ambulatory meryleast [facility] Reyna [facility] Facility:[facility] Start: 07-08-2024 End: 07-08-[address] Galina Iraheta MD Work Phone: [facility] Work Phone: Start: 07-08-2024 End: 07-08-2024 Departed Referred Reji [facility] Start: 07-08-2024 Registered Referred Reji GonzalezAgnes [facility] Start: 07-07-2024 End: 07-08-[address] Galina Iraheta MD Work Phone: [facility] Work Phone: Start: 07-07-2024 End: 07-07-2024 Departed Referred Reji GonzalezAgnes [facility] Start: 07-07-2024 Registered Referred Reji GonzalezAgnes [facility] Start: 07-06-2024 End: 07-07-[address] Galina Iraheta MD Work Phone: [facility] Work Phone: Start: 07-06-2024 End: 07-06-[address] Reji Reyna MD -[facility] Work Phone: Start: 07-05-2024 End: 07-05-[address] Galina Iraheta MD Work Phone: [facility] Work Phone: Start: 07-05-2024 End: 07-05-2024 Departed Referred Reji GonzalezAgnes [facility] Start: 07-05-2024 Registered Referred Reji GonzalezAgnes [facility] Start: 07-05-2024 End: 07-05-2024 ambulatory Efarline POPE Facility:[facility] Start: 06-16-2024 End: 06-16-2024 Telephone encounter Thalia Monterroso MD Work Phone: Rheumatology Start: 06-16-2024 End: 06-16-2024 [facility] Start: 06-16-2024 [facility] Start: 06-16-2024 End: 06-16-2024 ambulatory Efewshine Reyna OLS Facility:[facility] Start: 06-11-2024 End: 06-11-2024 ambulatory [facility] [facility] Work Phone: Hematology/Oncology Comment on above: Rheumatoid arthritis involving multiple sites, unspecified whether rheumatoid factor present (HCC); Senile osteoporosis Start: 05-31-2024 End: 05-31-[address] Galina Iraheta MD Work Phone: [facility] Work Phone: Start: 05-31-2024 End: 05-31-2024 Departed Referred Reji Reyna MD -[facility] Start: 05-31-2024 Registered Referred Reji Reyna MD -[facility] Start: 05-31-2024 End: 05-31-2024 ambulatory Reji POPE Facility:[facility] Start: 05-21-2024 End: 05-21-2024 ambulatory Thalia Monterroso MD Work Phone: Rheumatology Comment on above: Rheumatoid arthritis involving multiple sites, unspecified whether rheumatoid factor present (HCC) (Primary Dx); Senile osteoporosis; On prednisone therapy Start: 05-21-2024 End: 05-21-2024 Telemedicine consultation with patient Thalia Monterroso MD Work Phone: Rheumatology Start: 05-13-2024 End: 05-13-[address] Galina Iraheta MD Work Phone: [facility] Work Phone: Start: 05-13-2024 End: 05-13-2024 Departed Referred eRji Reyna MD -[facility] Start: 05-13-2024 End: 05-13-2024 ambulatory Galina Horner NP Facility:[facility] Start: 05-13-2024 End: 05-13-2024 Patient encounter procedure Galina Horner [employer]-C -[facility] Work Phone: Start: 05-13-2024 End: 05-13-2024 ambulatory Reji POPE Facility:[facility] Start: 05-03-2024 ambulatory eRji Herrong rian OLS Facility:[facility] Start: 05-03-2024 Registered Referred Reji Reyna MD [facility] Start: 04-23-2024 End: 04-23-2024 [facility] Start: 04-23-2024 End: 04-23-2024 ambulatory Reji POPE Facility:[facility] Start: 04-05-2024 End: 04-05-2024 Departed Referred Reji Reyna MD [facility] Start: 04-05-2024 End: 04-05-2024 ambulatory Reji POPE Facility:[facility] Start: 03-25-2024 End: 03-26-2024 ambulatory Cassidy Arreola APRN.CNP Work Phone: Hematology/Oncology Comment on above: Test Results Start: 03-19-2024 End: 03-19-2024 [facility] Comment on above: Bilateral hip pain [ M25.551, M25.552] Iron deficiency anem ia due to chronic blood loss [D50.0] Start: 03-19-2024 End: 03-19-2024 ambulatory REJI HERRONOSVALDO Facility:[facility] Start: 03-12-2024 End: 03-12-2024 ambulatory Treatment Rm 14 [facility] Work Phone: Hematology/Oncology Comment on above: [...] above: Appointment Start: 03-02-2024 ambulatory Reji POPE Facility:[facility] Start: 03-02-2024 Registered Referred Reji Reyna MD [facility] Start: 03-01-2024 ambulatory Reji Jakeashley POPE Facility:[facility] Start: 03-01-2024 Registered Referred Reji Reyna MD [facility] Start: 02-27-2024 End: 02-27-2024 ambulatory Treatment Rm 15 [facility] Work Phone: Hematology/Oncology Comment on above: [...] Hematology/Oncology Start: 02-24-2024 End: 03-29-2024 ambulatory Lab/[facility] Work Phone: Hematology/Oncology Comment on above: Rheumatoid arthritis involving multiple sites with positive rheumatoid factor (HCC) (Primary Dx); Rheumatoid arthritis involving multiple sites, unspecified whether rheumatoid factor present (HCC); Senile osteoporosis; Malignant neoplasm of lower-inner quadrant of right breast of female, estrogen receptor positive (HCC); Iron deficiency anemia due to chronic blood loss Start: 02-02-2024 End: 02-02-2024 ambulatory Reji POPE Facility:[facility] Start: 01-28-2024 End: 01-28-2024 ambulatory Treatment Rm 17 [facility] Work Phone: Hematology/Oncology Comment on above: Rheumatoid arthritis involving multiple sites with positive rheumatoid factor (HCC) (Primary Dx) Start: 01-23-2024 End: 01-23-2024 Telephone encounter Thalia Monterroso MD Work Phone: Rheumatology Comment on above: Patient Update Start: 12-11-2023 End: 12-11-2023 ambulatory [facility] Work Phone: Hematology/Oncology Comment on above: Senile osteoporosis (Primary Dx) Start: 12-11-2023 End: 12-11-2023 Patient encounter procedure Treatment Rm 16 [facility] Work Phone: Hematology/Oncology Start: 12-04-2023 End: 12-04-2023 ambulatory [facility] Work Phone: Hematology/Oncology Comment on above: Rheumatoid arthritis involving multiple sites with positive rheumatoid factor (HCC) (Primary Dx) Start: 12-04-2023 End: 12-04-2023 Patient encounter procedure Treatment Rm 14 [facility] Work Phone: Hematology/Oncology Start: 11-25-2023 End: 11-26-2023 Telephone encounter Sal Bonilla DO Work Phone: Hematology/Oncology Comment on above: Patient Update Start: 11-25-2023 End: 11-25-2023 ambulatory [facility]/[place] [facility] Work Phone: Hematology/Oncology Comment on above: [...] Patient encounter procedure Treatment Rm 17 [facility] Work Phone: Hematology/Oncology Start: 09-12-2023 End: 09-12-2023 ambulatory Treatment Rm 10 [facility] Work Phone: Hematology/Oncology Comment on above: Rheumatoid arthritis involving multiple sites with positive rheumatoid factor (HCC) (Primary Dx) Start: 08-28-2023 End: 08-28-2023 ambulatory Treatment Rm 7 [facility] Work Phone: Hematology/Oncology Comment on above: Rheumatoid arthritis involving multiple sites with positive rheumatoid factor (HCC) (Primary Dx) Start: 08-19-2023 Telephone encounter Cassidy vizcaino APRN.IN[employer]E T[employer] PREPARER Work Phone: Hematology/Oncology Comment on above: Orders Start: 08-19-2023 End: 08-19-2023 Patient encounter procedure Cassidy Arreola IRON INSTALLER.INCOME TAX PREPARER Work Phone: Hematology/Oncology Start: 08-19-2023 End: 08-19-2023 ambulatory [facility]/[place] [facility] Work Phone: Hematology/Oncology Comment on above: [...] End: 07-15-2023 Patient encounter procedure Vikash Sylvester IRON INSTALLER.INCOME TAX PREPARER Work Phone: URO/Gynecology Comment on above: Recurrent UTI (Prima ry Dx); Vaginal atrophy Start: 07-04-2023 ambulatory Hamzah Jackson [facility] [...] 06-30-[address] Galina Iraheta Work Phone: [facility] Work Phone: Start: 06-30-2023 End: 06-30-[address] Galina Iraheta Work Phone: [facility] Start: 06-18-2023 End: 06-18-2023 Patient encounter procedure Stella Preciado PA-C Work Phone: Orthopaedics Comment on above: Chronic pain of left knee (Primary Dx); Primary osteoarthritis of both knees Start: 06-18-2023 End: 06-18-2023 Subsequent hospital visit by physician [facility] [...] Subsequent hospital visit by physician [facility] Work Phone: Radiology Comment on above: On prednisone therap y [Z79.52] Start: 06-02-2023 End: 06-02-[address] Galina Iraheta Work Phone: [facility] Work Phone: Start: 06-02-2023 End: 06-02-[address] Galina Iraheta Work Phone: [facility] Start: 05-19-2023 Orders Only Cassidy waldrop APRN.INCOME TAX PREPARER Work Phone: Hematology/Oncology Comment on above: Malignant neoplasm o f lower-inner quadrant of right breast of female, estrogen receptor positive (HCC) (Primary Dx); Iron deficiency anemia due to chronic blood loss Start: 05-05-2023 End: 05-05-[address] Galina Iraheta Work Phone: [facility] Work Phone: Start: 05-05-2023 End: 05-05-[address] Galina Iraheta Work Phone: [facility] Start: 04-28-2023 Telephone encounter Thalia Monterroso MD Work Phone: Rheumatology Comment on above: Patient Update Start: 04-24-2023 Telephone encounter Thalia Monterroso MD Work Phone: Rheumatology Comment on above: Pain Start: 03-31-2023 End: 03-31-[address] Galina Iraheta Work Phone: [facility] Work Phone: Start: 03-31-2023 End: 03-31-[address] Galina Iraheta Work Phone: [facility] Start: 03-24-2023 End: 03-24-[address] Galina Iraheta Work Phone: [facility] Work Phone: Start: 03-03-2023 End: 03-03-[address] Galina Iraheta Work Phone: [facility] Start: 02-19-2023 End: 02-19-[address] Galina Iraheta Work Phone: [facility] Work Phone: Start: 02-11-2023 End: 02-11-2023 ambulatory Cassidy Arreola APRN.INCOME TAX PREPARER Work Phone: Hematology/Oncology Comment on above: Personal history of breast cancer (Primary Dx); Iron deficiency anemia due to chronic blood loss Start: 02-11-2023 End: 02-11-2023 Patient encounter procedure Cassidy Arreola APRN.INCOME TAX PREPARER Work Phone: [facility] Start: 02-03-2023 End: 02-03-2023 ambulatory [facility] Work Phone: Start: 02-03-2023 End: 02-03-2023 Departed Referred [facility] Start: 01-29-2023 End: 01-29-[address] Galina Iraheta Work Phone: [facility] Work Phone: Start: 01-14-2023 End: 01-14-2023 ambulatory [facility] [facility] Work Phone: Hematology/Oncology Comment on above: Iron deficiency anem ia due to chronic blood loss (Primary Dx); Personal history of breast cancer; Malignant neoplasm of lower-inner quadrant of right breast of female, estrogen receptor positive (HCC) Start: 12-30-2022 End: 12-30-2022 ambulatory [facility] Work Phone: Start: 12-30-2022 End: 12-30-2022 Departed Referred [facility] Start: 12-19-2022 Telephone encounter Flaca Viramontes stephanie Jasso Work Phone: Orthopaedics Comment on above: Last Office Visit No te Start: 12-17-2022 End: 12-17-2022 ambulatory [facility] [facility] Work Phone: Hematology/Oncology Comment on above: Iron deficiency anem ia due to chronic blood loss (Primary Dx) Start: 12-13-2022 End: 12-13-2022 Patient encounter procedure Juliet Gaffney APRN.INCOME TAX PREPARER Work Phone: Cardiology Comment on above: Essential hypertensi on (Primary Dx); Paroxysmal atrial fibrillation (HCC) Start: 12-02-2022 End: 12-02-2022 Departed Referred [facility] Start: 11-26-2022 Telephone encounter Stella camejo PA-C Work Phone: Orthopaedics Start: 11-25-2022 End: 11-25-2022 Subsequent hospital visit by physician Xr [facility] Jarad Work Phone: Radiology Comment on above: Pain in right wrist [M25.531] Start: 11-25-2022 End: 11-25-2022 Patient encounter procedure Stella GRACEC Work Phone: Orthopaedics Comment on above: Pain in right wrist (Primary Dx); Primary osteoarthritis of both knees; [facility] arthritis Start: 11-14-2022 Telephone encounter Jerrica Beltran APRN.INCOME TAX PREPARER Work Phone: Cardiology Comment on above: Appointment Cancelle d Start: 11-04-2022 End: 11-04-2022 Departed Referred [facility] Start: 11-04-[address] Galina Iraheta Work Phone: [facility] Start: 10-22-2022 End: 10-22-2022 ambulatory [facility] [facility] Work Phone: Hematology/Oncology Comment on above: Encounter for care r elated to vascular access port (Primary Dx) Start: 09-30-2022 End: 09-30-[address] Galina Iraheta Work Phone: [facility] Work Phone: Start: 09-30-2022 End: 09-30-[address] Galina Iraheta Work Phone: [facility] Start: 09-30-[address] Galina Iraheta Work Phone: [facility] Start: 09-24-2022 End: 09-24-2022 ambulatory [facility] [facility] Work Phone: Hematology/Oncology Comment on above: Encounter for care r elated to vascular access port (Primary Dx) Start: 09-20-2022 Telephone encounter Cecilio Ibarra DO Work Phone: Cardiology Comment on above: Results (CBC 09/19/22 - 2 week starting Eliquis) Start: 09-19-2022 End: 09-19-[address] Galina Iraheta Work Phone: [facility] Work Phone: Start: 09-19-2022 End: 09-19-[address] Galina Iraheta Work Phone: [facility] Start: 09-19-[address] Galina Iraheta Work Phone: [facility] Start: 09-05-2022 End: 09-05-2022 Patient encounter procedure Cecilio Ibarra DO Work Phone: Cardiology Comment on above: Paroxysmal atrial fi brillation (HCC) (Primary Dx); Rheumatic mitral regurgitation; Essential hypertension; Mixed hyperlipidemia; Obstructive sleep apnea syndrome; Shortness of breath; PAF (paroxysmal atrial fibrillation) (HCC); SVT (supraventricular tachycardia) (HCC) Start: 09-02-2022 End: 09-02-[address] Galina Iraheta Work Phone: [facility] Work Phone: Start: 09-02-2022 End: 09-02-[address] Galina Iraheta Work Phone: [facility] Start: 08-27-2022 End: 08-27-2022 ambulatory Cassidy Arreola APRN.INCOME TAX PREPARER Work Phone: Hematology/Oncology Comment on above: Personal history of breast cancer (Primary Dx); Iron deficiency anemia due to chronic blood loss Start: 08-27-2022 End: 08-27-2022 Patient encounter procedure Cassidy Arerola APRN.INCOME TAX PREPARER Work Phone: [facility] Start: 08-14-2022 End: 08-14-[address] Galina Iraheta Work Phone: [facility] Work Phone: Start: 07-29-2022 End: 07-29-[address] Galina Iraheta Work Phone: [facility] Start: 07-01-2022 End: 07-01-[address] Galina Iraheta Work Phone: [facility] Work Phone: Start: 07-01-2022 End: 07-01-[address] Galina Iraheta Work Phone: [facility] Start: 06-18-2022 End: 06-18-2022 ambulatory [facility] [facility] Work Phone: Hematology/Oncology Comment on above: Personal history of breast cancer (Primary Dx) Start: 06-11-2022 Telephone encounter Cassidy vizcaino APRN.INCOME TAX PREPARER Work Phone: Hematology/Oncology Comment on above: Results Start: 06-05-2022 End: 06-05-2022 Subsequent hospital visit by physician Xr [facility] Work Phone: Radiology Comment on above: Personal history of breast cancer [Z85.3] Start: 06-05-2022 End: 06-05-2022 ambulatory Cassidy Arreola APRN.INCOME TAX PREPARER Work Phone: Hematology/Oncology Comment on above: Personal history of breast cancer (Primary Dx); Rib pain on right side Start: 06-05-2022 End: 06-05-2022 Patient encounter procedure Cassidy Arreola APRN.INCOME TAX PREPARER Work Phone: [facility] [place] Start: 06-03-2022 End: 06-03-[address] Galina Iraheta Work Phone: [facility] Work Phone: Start: 06-03-2022 End: 06-03-[address] Galina Iraheta Work Phone: [facility] Start: 06-03-[address] Galina Iraheta Work Phone: [facility] Start: 05-30-2022 End: 05-30-[address] Galina Iraheta Work Phone: [facility] Start: 05-30-2022 Telephone encounter Sal gutierrez DO Work Phone: Hematology/Oncology Comment on above: Patient Question Start: 05-06-2022 End: 05-06-[address] Galina Iraheta Work Phone: [facility] Work Phone: Start: 05-06-2022 End: 05-06-[address] Galina Iraheta Work Phone: [facility] Start: 04-17-2022 End: 04-17-2022 ambulatory Treatment Rm 7 [place] [facility] Work Phone: Hematology/Oncology Comment on above: [...] 04-15-2022 End: 04-15-2022 ambulatory Treatment Rm 2 [facility] Work Phone: Hematology/Oncology Comment on above: Iron deficiency anem ia due to chronic blood loss (Primary Dx); Iron malabsorption Start: 04-12-2022 End: 04-12-2022 ambulatory Treatment Rm 2 [facility] [employer] Work Phone: Hematology/Oncology Comment on above: Iron deficiency anem ia due to chronic blood loss (Primary Dx); Iron malabsorption Start: 04-10-2022 End: 04-10-2022 ambulatory Treatment Rm 3 [facility] [employer] Work Phone: Hematology/Oncology Comment on above: Iron deficiency anem ia due to chronic blood loss (Primary Dx); Iron malabsorption Start: 04-10-2022 Telephone encounter Starla Son RN He matology/Oncology Comment on above: Clerk Travel Reservations - O ther (Symptoms ) Start: 04-09-2022 End: 04-09-2022 Office outpatient visit 25 minutes Taty Perez APRN.CNP Work Phone: Cardiology Comment on above: Chest pain, unspecif ied type (Primary Dx); Paroxysmal atrial fibrillation (HCC); Rheumatic mitral regurgitation; Essential hypertension; Mixed hyperlipidemia; Obstructive sleep apnea syndrome; Shortness of breath Start: 04-08-2022 End: 04-08-2022 ambulatory Treatment Rm 13 [facility] [employer] Work Phone: Hematology/Oncology Comment on above: Iron 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 Galina Iraheta Work Phone: [facility] Work Phone: Start: 04-01-2022 End: 04-01-[address] Galina Iraheta Work Phone: [facility] Start: 04-01-[address] Galina Iraheta Work Phone: [facility] Start: 03-28-2022 End: 03-28-[address] Galina Iraheta Work Phone: [facility] Start: 03-25-2022 End: 03-25-[address] Galina Iraheta Work Phone: [facility] Start: 03-24-2022 Telephone encounter Sal gutierrez DO Work Phone: Hematology/Oncology Comment on above: Results (CBC) Start: 03-22-2022 End: 03-22-2022 ambulatory [facility]/[place] [facility] Work Phone: Hematology/Oncology Comment on above: Iron deficiency anem ia due to chronic blood loss Start: 03-21-2022 Telephone encounter Sal gutierrez DO Work Phone: Hematology/Oncology Comment on above: Orders; Appointment Start: 03-14-2022 End: 03-14-2022 ambulatory [facility]/[place] [facility] Work Phone: Hematology/Oncology Comment on above: Malignant neoplasm o f lower-inner quadrant of right breast of female, estrogen receptor positive (HCC) (Primary Dx); Iron deficiency anemia due to chronic blood loss Start: 03-07-2022 End: 03-07-[address] Galina Iraheta Work Phone: [facility] Work Phone: Start: 03-07-2022 End: 03-07-[address] Galina Iraheta Work Phone: [facility] Start: 03-07-[address] Galina Iraheta Work Phone: [facility] Start: 03-06-2022 Telephone encounter Sal gutierrez DO Work Phone: Hematology/Oncology Comment on above: Returning Patient's Call Start: 03-06-2022 End: 03-06-2022 ambulatory Cassidy Arreola APRN.INCOME TAX PREPARER Work Phone: Hematology/Oncology Comment on above: Malignant neoplasm o f lower-inner quadrant of right breast of female, estrogen receptor positive (HCC) (Primary Dx) Start: 03-06-2022 End: 03-06-2022 Patient encounter procedure Cassidy Arreola APRN.INCOME TAX PREPARER Work Phone: [facility] Start: 03-04-2022 End: 03-04-[address] Galina Iraheta Work Phone: [facility] Work Phone: Start: 03-04-2022 End: 03-04-[address] Galina Iraheta Work Phone: [facility] Start: 03-04-[address] Galina Iraheta Work Phone: [facility] Start: 02-21-2022 End: 02-21-[address] Galina Iraheta Work Phone: [facility] Work Phone: Start: 02-21-2022 End: 02-21-[address] Galina Iraheta Work Phone: [facility] Start: 02-21-[address] Galina Iraheta Work Phone: [facility] Start: 02-05-2022 End: 02-05-2022 ambulatory [facility] [facility] Work Phone: Hematology/Oncology Comment on above: Anemia, unspecified type (Primary Dx) Start: 02-04-2022 End: 02-04-[address] Galina Iraheta Work Phone: [facility] Work Phone: Start: 02-04-2022 End: 02-04-[address] Galina Iraheta Work Phone: [facility] Start: 02-04-[address] Galina Iraheta Work Phone: [facility] Start: 01-21-2022 End: 01-21-2022 Patient encounter procedure Stella Preciado PA-C Work Phone: Orthopaedics Comment on above: Primary osteoarthrit is of both knees (Primary Dx); Chronic pain of right knee Start: 01-17-2022 End: 01-17-[address] Galina Iraheta Work Phone: [facility] Work Phone: Start: 01-17-2022 End: 01-17-[address] Galina Iraheta Work Phone: [facility] Start: 01-17-[address] Galina Iraheta Work Phone: [facility] Start: 01-08-2022 End: 01-08-2022 ambulatory [facility] [facility] Work Phone: Hematology/Oncology Comment on above: Malignant neoplasm o f lower-inner quadrant of right breast of female, estrogen receptor positive (HCC) (Primary Dx) Start: 01-03-2022 End: 01-03-[address] Galina Iraheta Work Phone: [facility] Work Phone: Start: 01-03-2022 End: 01-03-[address] Galina Iraheta Work Phone: [facility] Start: 01-03-[address] Galina Iraheta Work Phone: [facility] Start: 01-02-2022 End: 01-02-2022 ambulatory BASILIA HERNÁNDEZ Facility:[facility] Start: 01-02-2022 End: 01-02-2022 Patient encounter procedure Basilia Hernández MD Work Phone: URO/Gynecology Comment on above: Recurrent UTI (Prima ry Dx); History of ESBL E. coli infection; Vaginal atrophy Start: 12-31-2021 End: 12-31-[address] Galina Iraheta Work Phone: [facility] Work Phone: Start: 12-31-2021 End: 12-31-[address] Galina Iraheta Work Phone: [facility] Start: 12-28-2021 End: 12-28-[address] Galina Iraheta Work Phone: [facility] Start: 12-28-2021 End: 12-28-2021 Emergency department patient visit Dr. Galina Iraheta Work Phone: [facility] Start: 12-27-2021 End: 12-27-[address] Galina Iraheta Work Phone: [facility] Work Phone: Start: 12-27-2021 End: 12-27-[address] Galina Iraheta Work Phone: [facility] Start: 12-27-[address] Galina Iraheta Work Phone: [facility] Start: 12-25-2021 Telephone encounter Cecilio Ibarra DO Work Phone: Cardiology Comment on above: Clerk Travel Reservations - O ther Start: 12-24-2021 End: 12-24-[address] Galina Iraheta Work Phone: [facility] Start: 12-22-2021 End: 12-22-[address] Galina Iraheta Work Phone: [facility] Work Phone: Start: 12-22-2021 End: 12-22-[address] Galina Iraheta Work Phone: [facility] Start: 12-22-[address] Galina Iraheta Work Phone: [facility] Start: 12-21-2021 End: 12-21-[address] Galina Iraheta Work Phone: [facility] Start: 12-17-2021 End: 12-17-[address] Galina Iraheta Work Phone: [facility] Start: 12-17-2021 Registered Referred [facility] Start: 12-11-2021 End: 12-11-2021 ambulatory [facility] [facility] Work Phone: Hematology/Oncology Comment on above: Malignant neoplasm o f lower-inner quadrant of right breast of female, estrogen receptor positive (HCC) (Primary Dx) Start: 12-10-2021 End: 12-10-[address] Galina Iraheta Work Phone: [facility] Start: 12-10-2021 Registered Referred [facility] Start: 12-03-2021 End: 12-03-[address] Galina Iraheta Work Phone: [facility] Work Phone: Start: 12-03-2021 End: 12-03-[address] Galina Iraheta Work Phone: [facility] Start: 12-03-2021 Registered Referred [facility] Start: 11-26-2021 End: 11-26-2021 Departed Referred [facility] Start: 11-20-2021 End: 11-20-2021 ambulatory [facility] Work Phone: Start: 11-20-2021 End: 11-20-2021 Departed Referred [facility] Start: 11-13-2021 End: 11-13-2021 ambulatory [facility] [facility] Work Phone: Hematology/Oncology Comment on above: Malignant neoplasm o f lower-inner quadrant of right breast of female, estrogen receptor positive (HCC) (Primary Dx) Start: 11-05-2021 Telephone encounter Pharmacist [facility] Comment on above: PAC TRANSFER OF CARE Start: 10-29-2021 End: 10-29-2021 Departed Referred [facility] Start: 10-23-2021 Telephone encounter Nury Andres [facility] P harmacy Ambulatory Telemanagement Comment on above: Patient Question Start: 10-18-2021 Telephone encounter Galina caballero MD Work Phone: [facility] [place] Comment on above: Patient Update Start: 10-18-2021 End: 10-18-2021 Emergency department patient visit [facility] Start: 10-17-2021 Telephone encounter Galina caballero MD Work Phone: Internal Medicine [place] Comment on above: Release Of Medical R ecords Start: 10-16-2021 Telephone encounter Tesha luther [facility] Comment on above: Anticoagulation Tele phone Fu (home INR ) Start: 10-16-2021 End: 10-16-2021 ambulatory [facility] [facility] Work Phone: [facility] Start: 10-16-2021 End: 10-16-2021 Anticoagulant drug monitoring Lab/[place] [facility] Work Phone: Hematology/Oncology Comment on above: [...] Start: 10-02-2021 Telephone encounter Tesha luther [facility] Ambulatory Tele[facility] Comment on above: Anticoagulation Tele phone Fu (home INR ) Start: 09-26-2021 End: 09-26-2021 ambulatory BASILIA HERNÁNDEZ Facility:[facility] Start: 09-26-2021 End: 09-26-2021 Patient encounter procedure Basilia Hernández MD Work Phone: URO/Gynecology Comment on above: Recurrent UTI (Prima ry Dx); History of ESBL E. coli infection; Mixed stress and urge urinary incontinence Start: 09-19-2021 Telephone encounter Jer[facility] Ambulatory [facility] Comment on above: Anticoagulation Tele phone Fu (Home INR result) Start: 09-18-2021 End: 09-18-2021 Patient encounter procedure Cassidy Arreola APRN.INCOME TAX PREPARER Work Phone: [facility] Start: 09-18-2021 End: 09-18-2021 ambulatory [facility] [facility] Work Phone: Hematology/Oncology Comment on above: Malignant neoplasm o f lower-inner quadrant of right breast of female, estrogen receptor positive (HCC) (Primary Dx) Start: 09-11-2021 Telephone encounter Pharmacist [facility] Comment on above: Anticoagulation Start: 09-11-2021 End: 09-11-2021 Patient encounter procedure Jayde Hebert MD Work Phone: OB/Gynecology Comment on above: Old laceration of ce rvix uteri (Primary Dx) Start: 09-10-2021 Telephone encounter Jayde Hebert MD Work Phone: OB/Gynecology Comment on above: Results Start: 09-06-2021 Telephone encounter Galina caballero MD Work Phone: [facility] [place] Comment on above: Patient Update Start: 09-05-2021 Telephone encounter [facility] Ambulatory Tele[facility] Comment on above: Anticoagulation Tele phone Fu (Home INR result) Start: 09-05-2021 End: 09-05-2021 Patient encounter procedure Cecilio Ibarra Work Phone: Cardiology Comment on above: Paroxysmal [...] m caregiver Jayde Hebert MD Work Phone: [facility] Start: 08-28-2021 End: 08-28-2021 Patient encounter procedure Jayde Hebert MD Work Phone: OB/Gynecology Comment on above: Old laceration of ce rvix uteri (Primary Dx); Abnormal uterine bleeding (AUB) Start: 08-26-2021 End: 08-26-2021 Emergency department patient visit [facility] Start: 08-23-2021 ambulatory Jayde jackson MD Work Phone: OB/Gynecology Comment on above: PMB (postmenopausal bleeding) (Primary Dx); Endometrial thickening on ultrasound Start: 08-23-2021 Patient encounter procedure Jayde Hebert MD Work Phone: [facility] Start: 08-23-2021 End: 08-23-2021 Admission to same day surgery center [facility] Start: 08-22-2021 Telephone encounter [...] encounter An Ta APRN.CNP Work Phone: [facility] Comment on above: Results Start: 08-14-2021 Telephone encounter Nury Andres RPh P harmacy Ambulatory Telemanagement Comment on above: Anticoagulation Tele phone Fu (Home INR result) Start: 08-12-2021 ambulatory Daysi ELLIS SE SMALL ENGINE TECHNICIAN Comment on above: UTI Start: 08-10-2021 Telephone encounter An Ta APRN.INCOME TAX PREPARER Work Phone: [facility] Comment on above: Results Start: 08-08-2021 End: 08-08-2021 Patient encounter procedure An Ta APRN.INCOME TAX PREPARER Work Phone: Internal Medicine [place] Comment on above: History of recent ho spitalization (Primary Dx); Dysuria; Recurrent UTI; Cirrhosis of liver with ascites, unspecified hepatic cirrhosis type (HCC); Biliary colic Start: 07-31-2021 Telephone encounter Nury Andres RPh P harmacy Ambulatory Telemanagement Comment on above: Anticoagulation Tele phone Fu (Home INR result) Start: 07-27-2021 Telephone encounter Galina caballero MD Work Phone: Internal Medicine [place] Comment on above: Agree to follow; Ord ers Start: 07-24-2021 E-mail encounter susan altamirano caregiver [facility] Provider IVAN RODAS [facility] Start: 07-24-2021 Patient encounter procedure [facility] Provider Orthopaedics Comment on above: Appointment Reschedu le Start: 07-24-2021 Telephone encounter Haley gonzalezr PA-C Work Phone: Rheumatology Comment on above: Appointment Start: 07-24-2021 End: 07-24-2021 ambulatory Lab/[place] [facility] Work Phone: Hematology/Oncology Comment on above: Malignant neoplasm o f lower-inner quadrant of right breast of female, estrogen receptor positive (HCC) (Primary Dx) Start: 07-23-2021 End: 07-23-2021 Departed Referred [place] [id number] Start: 07-23-2021 Registered Referred [place] [id number] Start: 07-18-2021 Telephone encounter Marlin Ansari [facility] Ambulatory Telemanagement Comment on above: Anticoagulation Tele phone Fu Patient Update Start: 07-16-2021 End: 07-16-2021 Departed Referred [facility] 300 Start: 07-16-2021 Registered Referred [facility] 300 Start: 07-13-2021 End: 07-13-2021 Departed Referred [place] [id number] Start: 07-10-2021 ambulatory Galina Singh Work Phone: Internal Medicine [facility] [place] Start: 07-06-2021 Telephone encounter Coreen haro MD Work Phone: Gastroenterology Comment on above: Results Start: 07-05-2021 Telephone encounter Galina caballero MD Work Phone: Family Medicine [place] Comment on above: Pain (back & legs / Pt update) Start: 07-05-2021 End: 07-05-2021 Patient encounter procedure Johnny Turk MD Work Phone: General Surgery Comment on above: Calculus of gallblad gary without cholecystitis without obstruction (Primary Dx); Secondary biliary cirrhosis (HCC) Start: 07-03-2021 Telephone encounter Johnny Turk MD Work Phone: General Surgery Comment on above: Patient Question (ga [facility]adder ER [facility]) Start: 07-03-2021 End: 07-03-2021 Patient encounter procedure Alma Ta APRN.INCOME TAX PREPARER Work Phone: Internal Medicine [place] Comment on above: Dysuria (Primary Dx) ; Right upper quadrant abdominal pain; Chronic anticoagulation Start: 07-02-2021 End: 07-03-2021 Emergency department patient visit [facility]Emergency Department Start: 06-26-2021 End: 06-26-2021 ambulatory Lab/[place] [facility] Work Phone: Hematology/Oncology Comment on above: Malignant neoplasm o f lower-inner quadrant of right breast of female, estrogen receptor positive (HCC) (Primary Dx) Start: 06-22-2021 Telephone encounter Corinna Arenas [facility] P harmacy Ambulatory Telemanagement Comment on above: Anticoagulation Tele phone Fu (INR Home Test Result) Start: 06-20-2021 Telephone encounter Jerrica Waldrop Pharmacy Ambulatory Telemanagement Comment on above: Anticoagulation Tele phone Fu (Home INR result) Start: 06-19-2021 Telephone encounter Basilia Cueto APRN.INCOME TAX PREPARER Work Phone: [place] [facility] Comment on above: Results (urine cultu re) Start: 06-05-2021 End: 06-05-2021 Patient encounter procedure Aby Singh Bruner DO Work Phone: Vascular Surgery Comment on above: Venous (peripheral) insufficiency (Primary Dx) Start: 05-23-2021 ambulatory Jerrica Rothman RPh [facility] [place] Ambulatory Telemanagement Comment on above: INR in therapeutic r jeannine Start: 05-23-2021 E-mail encounter susan m caregiver Jerrica Rothman RP CC [employer]ILDING Start: 05-17-2021 End: 05-17-2021 Subsequent hospital visit by physician Yul[facility] Work Phone: Radiology Comment on above: Cough [R05.9] Start: 05-17-2021 ambulatory Mercy claros RT(R) Radiology Comment on above: Results Start: 05-17-2021 Patient encounter procedure Mercy Ridley RT(R) [facility] [place] Start: 05-09-2021 ambulatory Jerrica Rothman [facility] Ambulatory Telemanagement Comment on above: INR in therapeutic r jeannine Start: 05-09-2021 E-mail encounter fro m caregiver Jerrica Rothman [facility] CC DD BUILDING Start: 02-07-2021 Telephone encounter Galina caballero MD Work Phone: Internal Medicine [place] Comment on above: Medication Question Start: 11-27-2020 End: 11-27-2020 Subsequent hospital visit by physician [facility] [place] Work Phone: Radiology Comment on above: Fever, unspecified f ever cause [R50.9] Start: 05-05-2020 End: 05-05-2020 Subsequent hospital visit by physician [facility] [place] Work Phone: Radiology Comment on above: Chronic cough [R05] Procedures Date Procedure Procedure Detail Performing Clinician Start: 11-29-2024 Vitamin D, 25-hydrox y measurement Dr. Reji Reyna MD Work Phone: Comment on above: Vitamin D StatusDefi ciency: <20 ng/mL (50nmol/L)Insufficiency: 20-30 ng/mL (50-75 nmol/L)Sufficiency: 30-100 ng/mL (75-250 nmol/L)Toxicity: >100 ng/mL (>250 nmol/L) Start: 10-22-2024 XR forearm, [address] Galina Iraheta MD Work Phone: Start: 09-24-2024 XR forearm, [address] Galina Iraheta MD Work Phone: Start: 09-21-2024 Blood count complete auto&auto difrntl wbc Cassidy Arreola IRON INSTALLER.INCOME TAX PREPARER Work Phone: Start: 09-21-2024 C-reactive protein Ammy [...] Start: 05-21-2024 Follow-up visit Follow Up JOHNY MONTERROSO Start: 05-13-2024 Urnls dip stick/tabl et reagent [...] above: Detection Limit = 5P erformed at: [facility] [id number] Director: Jeremiah Bates MD, Phone: [phone] Start: 04-05-2024 Measurement of renal function Dr. Galina Iraheta MD Work Phone: Comment on above: GFR Calc Start: 04-05-2024 Percentage plasma ce ll count Dr. Glaina Iraheta MD Work Phone: Start: 02-24-2024 Blood count complete auto&auto difrntl wbc Cassidy Arreola IRON INSTALLER.INCOME TAX PREPARER Work Phone: Start: 11-25-2023 Blood count complete auto&auto difrntl wbc Sal Mckeoni DO Work Phone: Start: 08-19-2023 Blood count complete auto&auto difrntl wbc Sal Dozier Masci DO Work Phone: Start: 06-30-2023 Arthrocentesis aspir [...] ribs unilatera l 2 views Cassidy Arreola IRON INSTALLER.INCOME TAX PREPARER Work Phone: Start: 03-22-2022 Blood count complete auto&auto difrntl wbc Sal Mckeoni DO Work Phone: Start: 03-14-2022 Comprehensive metabo lic panel Sal Mckeoni DO Work Phone: Start: 01-21-2022 Arthrocentesis aspir [...] et rgnt auto w/o microscopy An Ta IRON INSTALLER.INCOME TAX PREPARER Work Phone: Start: 07-03-2021 Computed tomography of abdomen and pelvis with intravenous contrast Start: 05-17-2021 Radiologic exam ches t 2 views Darline Hurley IRON INSTALLER.INCOME TAX PREPARER Work Phone: Start: 01-12-2021 Antibody screen Comment on above: Performed By: #### 5 7021-8 #### [facility] CLIA [id number] [address] [place], [place] [id number] [place] [address] [facility] Start: 01-09-2021 Colonoscopy Aby encarnacion DO Work Phone: Start: 11-27-2020 Radiologic exam ches t 2 views Joann Haynes IRON INSTALLER.INCOME TAX PREPARER Work Phone: Start: 05-05-2020 Radiologic exam ches t 2 views Alma Shankar IRON INSTALLER.INCOME TAX PREPARER Work Phone: Measurement of occul t blood in stool specimen using immunoassay Urine culture Urine culture Dr. Galina caballero Work Phone: Plan of Treatment Date Care Activity Detail Author Start: 09-22-2027 Diabetes Screening Diabetes Screening [facility] Start: 06-12-2027 Diabetes Screening Diabetes Screening [facility] Start: 02-23-2027 Diabetes Screening Diabetes Screening [facility] Start: 11-24-2026 Diabetes Screening Diabetes Screening [facility] Start: 07-03-2026 Diabetes Screening Diabetes Screening [facility] Start: 06-05-2025 Screening for osteoporosis Bone Density Screening [facility] Start: 03-25-2025 End: 03-25-2025 Follow-up encounter 03/25/2025 11:20 AM [facility] Rheumatology [address] [place] [address] [id number] Thalia Monterroso MD [address] [place] [address] [phone] Follow-up RA Rheumatology Comment on above: Follow-up RA Start: 03-23-2025 End: 03-23-2025 ambulatory Hematology/Oncology Comment on above: CBC/IRON STUDIES(PORT)/OV TODAY 6 MO OV* Start: 03-14-2025 DIABETES SCREEN DIABETES SCREEN [facility] Start: 03-14-2025 Diabetes Screening Diabetes Screening [facility] Start: 01-14-2025 End: 01-14-2025 Patient encounter procedure 01/14/2025 9:20 AM EDT Office Visit Neurology [address] [place] [id number] Nathaniel Herrera Jr., MD [address] [place] [address] confusion Neurology Comment on above: confusion Start: 12-22-2024 End: 12-22-2024 ambulatory 12/22/2024 11:15 AM EDT Infusion Center Hematology/Oncology [address] [place] [address] Wstr, Lab/[place] [facility] [address] [place] [address] PORT FLUSH* Hematology/Oncology Comment on above: PORT FLUSH* Start: 11-23-2024 End: 11-23-2024 ambulatory 11/23/2024 11:40 AM EDT [facility] Rheumatology [address] [place] [id number] Thalia Monterroso MD [address] [place] [id number] ra f/u Rheumatology Comment on above: ra f/u Start: 11-15-2024 Influenza vaccination [facility] Start: 10-22-2024 XR forearm, 2 views Forearm 2 Views [facility] Start: 10-22-2024 XR Radius and Ulna 2 Views [facility] Start: 09-24-2024 XR forearm, 2 views Forearm 2 Views [facility] Start: 09-24-2024 XR Radius and Ulna 2 Views [facility] Start: 09-21-2024 End: 09-21-2024 ambulatory Hematology/Oncology Comment on above: 6 MO OV* CBC/IRON STUDIES(POR T)/OV TODAY Start: 09-14-2024 End: 09-14-2024 [facility] Start: 09-03-2024 Plain x-ray of wrist Wrist min 3 Views [facility] Start: 09-03-2024 XR Wrist GE 3 Views [facility] Start: 08-27-2024 End: 08-27-2024 ambulatory 08/27/2024 10:00 AM EDT [facility] Rheumatology [address] [place] [id number] Thalia Monterroso MD [address] [place] [id number] RA Rheumatology Comment on above: RA Start: 08-18-2024 XR forearm, 2 views Forearm 2 Views [facility] Start: 08-18-2024 XR Radius and Ulna 2 Views [facility] Start: 08-13-2024 Plain x-ray of humerus Humerus min 2 Views [facility] Start: 08-13-2024 XR forearm, 2 views Forearm 2 Views [facility] Start: 08-13-2024 XR Humerus GE 2 Views [facility] Start: 08-13-2024 XR Radius and Ulna 2 Views [facility] Start: 08-13-2024 DIABETES SCREEN DIABETES SCREEN [facility] Start: 08-06-2024 Venous catheter care management [facility] Start: 2024 DIABETES SCREEN DIABETES SCREEN [facility] Start: 07-11-2024 DIABETES SCREEN DIABETES SCREEN [facility] Start: 07-06-2024 DIABETES SCREEN DIABETES SCREEN [facility] Start: 07-05-2024 DIABETES SCREEN DIABETES SCREEN [facility] Start: 06-11-2024 End: 06-11-2024 ambulatory 06/11/2024 2:00 PM EDT Infusion Center Hematology/Oncology [address] [place] [address] Wstr, Lab/[place] [facility] [address] [place] [address] port flush* Hematology/Oncology Comment on above: port flush* Start: 06-01-2024 End: 06-01-2024 Patient encounter procedure 06/01/2024 10:00 AM EDT Office Visit URO/Gynecology [address] [place] [address] Vikash Sylvester, IRON INSTALLER.INCOME TAX PREPARER [address] [place] [address] FOLLOWUP URO/Gynecology Comment on above: FOLLOWUP Start: 05-22-2024 DIABETES SCREEN DIABETES SCREEN [facility] Start: 05-21-2024 End: 05-21-2024 Patient encounter procedure 05/21/2024 11:40 AM EST Office Visit Cardiology [address] [address] Annmarie Shell MD [address] [place] [address] follow up Cardiology Comment on above: follow up Start: 05-19-2024 End: 05-19-2024 ambulatory 05/19/2024 11:00 AM EST Infusion Center Hematology/Oncology [address] [place] [address] 2ND Hematology/Oncology Comment on above: 2ND Start: 03-25-2024 End: 03-25-2024 ambulatory 03/25/2024 10:00 AM EST Visit (SP) Office Hematology/Oncology [address] [place] [address] 2ND Hematology/Oncology Comment on above: 2ND Start: 03-24-2024 End: 03-24-2024 ambulatory 03/24/2024 11:00 AM EST Infusion Center Hematology/Oncology [address] [place] [address] 2ND Hematology/Oncology Comment on above: 2ND Start: 03-19-2024 End: 03-19-2024 Patient encounter procedure Radiology Comment on above: Bilateral hip pain [M25.551, M25.552] CT Pelvis/Chest/Abd Start: 03-19-2024 End: 03-19-2024 ambulatory 03/19/2024 9:30 AM EST Infusion Center Hematology/Oncology [address] [place] [address] Wstr, Lab/[place] [facility] [address] [place] [address] CREATININE(S)(PORT)/KEEP ACCESSED FOR IMAGING* Hematology/Oncology Comment on above: CREATININE(S)(PORT)/KEEP ACCESSED FOR IM AGING* Start: 03-17-2024 Advance Directive Discussion Advance Directive Discussion [facility] Start: 03-12-2024 End: 03-12-2024 ambulatory 03/12/2024 2:30 PM EST Infusion Center Hematology/Oncology [address] [place] [address] 2nd Hematology/Oncology Comment on above: 2nd Start: 03-09-2024 End: 03-09-2024 Patient encounter procedure Cat Scan Comment on above: CT Pelvis/Chest/Abd Start: 03-08-2024 End: 03-08-2024 ambulatory 03/08/2024 3:00 PM EST Infusion Center Hematology/Oncology [address] [place] [address] 2nd Hematology/Oncology Comment on above: 2nd Start: 03-05-2024 End: 03-05-2024 ambulatory Rheumatology Comment on above: PRM f up 2nd Start: 03-03-2024 End: 03-03-2024 ambulatory 03/03/2024 3:00 PM EST Infusion Center Hematology/Oncology [address] [place] [address] 2nd Hematology/Oncology Comment on above: 2nd Start: 02-24-2024 End: 05-25-2024 CREATININE BLD CREATININE BLD Lab Routine Iron deficiency anemia due to chronic blood loss Bilateral hip pain Generalized abdominal pain Abdominal bloating Personal history of breast cancer Occult blood in stools Expected: 02/24/2024, Expires: 05/25/2024 [facility] Comment on above: Expected: 02/24/2024, Expires: Start: 02-24-2024 End: 02-24-2024 ambulatory Hematology/Oncology Comment on above: CBC/iron studies (PORT)/OV TODAY* 6MO OV Start: 02-16-2024 End: 02-16-2024 Patient encounter procedure 02/16/2024 2:00 PM EST Office Visit Cardiology [address] [address] Annmarie Shell MD [address] [place] [address] follow up Cardiology Comment on above: follow up Start: 01-29-2024 End: 01-29-2024 ambulatory 01/29/2024 11:00 AM EST Visit (SP) Office Hematology/Oncology [address] [place] [address] 2ND Hematology/Oncology Comment on above: 2ND Start: 01-28-2024 End: 01-28-2024 ambulatory Hematology/Oncology Comment on above: 2ND Start: 12-16-2023 End: 12-16-2023 Patient encounter procedure 12/16/2023 2:20 PM EDT Office Visit Cardiology [address] [id number] Ceiclio Ibarra DO [address] [place] [address] 6 month follow up Cardiology Comment on above: 6 month follow up Start: 12-04-2023 End: 12-04-2023 Infusion Center Hematology/Oncology Comment on above: Q8WK RENFLEXIS(PORT)/ORDERING PROV DR LYNCH Y/MARCIALR* 2ND Start: 11-25-2023 End: 02-24-2024 Ferritin [Mass/volume] in Serum or Plasma [facility] Comment on above: Expected: 11/25/2023, Expires: Start: 11-25-2023 End: 02-24-2024 Iron and Iron binding capacity panel - Serum or Plasma [facility] Work Phone: Comment on above: Expected: 11/25/2023, Expires: Start: 11-25-2023 End: 11-25-2023 ambulatory 11/25/2023 1:30 PM EDT Infusion Center Hematology/Oncology [address] [place], [place] [phone] Wstr, Lab/[place] [facility] [address] [place] [address] CBC/iron studies (PORT)/OV TODAY* Hematology/Oncology Comment on above: CBC/iron studies (PORT)/OV TODAY* Start: 11-16-2023 Covid-19 Vaccine ( season) Covid-19 Vaccine ( season) [facility] Start: 11-16-2023 Covid-19 Vaccine ( season) Covid-19 Vaccine ( season) [facility] Start: 11-16-2023 Influenza vaccination [facility] Start: 11-14-2023 End: 02-13-2024 25-hydroxyvitamin D3 [Mass/volume] in Serum or Plasma VITAMIN D 25 HYDROXY Lab Routine Rheumatoid arthritis involving multiple sites, unspecified whether rheumatoid factor present (HCC) Senile osteoporosis Expected: 11/14/2023, Expires: 02/13/2024 [facility] Work Phone: Comment on above: Expected: 11/14/2023, Expires: Start: 11-14-2023 End: 11-14-2023 ambulatory Rheumatology Comment on above: PRM f up Start: 10-09-2023 End: 10-09-2023 Infusion Center 10/09/2023 11:00 AM EDT Infusion Center Hematology/Oncology [address] [place] [address] Q6WK RENFLEXIS(PORT)/ORDERING PROV DR MONTERROSO/NISH* THEN Q8WK Hematology/Oncology Comment on above: Q6WK RENFLEXIS(PORT)/ORDERING PROV DR RA Pena/MARCIALR* THEN Q8WK Start: 09-12-2023 End: 09-12-2023 ambulatory 09/12/2023 11:00 AM EDT Infusion Center Hematology/Oncology [address] [place] [address] daughter requested time Hematology/Oncology Comment on above: daughter requested time Start: 09-11-2023 End: 09-11-2023 Infusion Center 09/11/2023 9:00 AM EDT Infusion Center Hematology/Oncology [address] [place] [address] Q2WK RENFLEXIS(PORT)/ORDERING PROV DR MONTERROSO/NISH* wk0,2,6,then q8wk Hematology/Oncology Comment on above: Q2WK RENFLEXIS(PORT)/ORDERING PROV DR RA Pena/NISH* wk0,2,6,then q8wk Start: 08-28-2023 End: 08-28-2023 Infusion Center 08/28/2023 11:00 AM EDT Infusion Center Hematology/Oncology [address] [place] [address] START Q0WK RENFLEXIS(PORT)/ORDERING PROV DR MONTERROSO/NISH* wk0,2,6,then q8wk Hematology/Oncology Comment on above: START Q0WK RENFLEXIS(PORT)/ORDERING PROV DR MONTERROSO/NISH* wk0,2,6,then q8wk Start: 08-19-2023 End: 08-19-2023 ambulatory Hematology/Oncology Comment on above: CBC/iron studies (PORT)/OV TODAY* 6MO OV(PORT)/LABS EA RLY* Start: 07-04-2023 End: 10-03-2023 BLOOD TB SCREEN [facility] Work Phone: Comment on above: Expected: 07/04/2023, Expires: Start: 07-04-2023 End: 10-03-2023 Chronic hepatitis differentiation between hepatitis B and C virus panel - Serum or Plasma [facility] Work Phone: Comment on above: Expected: 07/04/2023, Expires: Start: 07-04-2023 End: 10-03-2023 Cyclic citrullinated peptide IgG Ab [Units/volume] in Serum or Plasma [facility] Work Phone: Comment on above: Expected: 07/04/2023, Expires: Start: 05-20-2023 End: 08-19-2023 CBC W Auto Differential panel - Blood CBC + DIFF Lab STAT Malignant neoplasm of lower-inner quadrant of right breast of female, estrogen receptor positive (HCC) Iron deficiency anemia due to chronic blood loss Expected: 05/20/2023, Expires: 08/19/2023 [facility] Work Phone: Comment on above: Expected: 05/20/2023, Expires: Start: 05-20-2023 End: 08-19-2023 Ferritin [Mass/volume] in Serum or Plasma FERRITIN BLD Lab Routine Malignant neoplasm of lower-inner quadrant of right breast of female, estrogen receptor positive (HCC) Iron deficiency anemia due to chronic blood loss Expected: 05/20/2023, Expires: 08/19/2023 [facility] Work Phone: Comment on above: Expected: 05/20/2023, Expires: Start: 05-20-2023 End: 08-19-2023 Iron and Iron binding capacity panel - Serum or Plasma IRON + TIBC Lab Routine Malignant neoplasm of lower-inner quadrant of right breast of female, estrogen receptor positive (HCC) Iron deficiency anemia due to chronic blood loss Expected: 05/20/2023, Expires: 08/19/2023 [facility] Work Phone: Comment on above: Expected: 05/20/2023, Expires: Start: 03-17-2023 Advance Directive Discussion Advance Directive Discussion [facility] Start: 11-17-2022 Urine microalbumin profile [facility] Start: 11-15-2022 Covid-19 Vaccine () Covid-19 Vaccine () [facility] Start: 11-15-2022 Influenza vaccination [facility] Start: 09-19-2022 End: 11-19-2022 CBC panel - Blood by Automated count CBC Lab Routine Paroxysmal atrial fibrillation (HCC) Rheumatic mitral regurgitation Essential hypertension Mixed hyperlipidemia Obstructive sleep apnea syndrome Shortness of breath PAF (paroxysmal atrial fibrillation) (HCC) SVT (supraventricular tachycardia) (HCC) Expected: 09/19/2022, Expires: 11/19/2022 [facility] Work Phone: Comment on above: Expected: 09/19/2022, Expires: 3 Start: 04-17-2022 End: 06-17-2022 CBC W Auto Differential panel - Blood CBC + DIFF Lab STAT Iron deficiency anemia due to chronic blood loss Malignant neoplasm of lower-inner quadrant of right breast of female, estrogen receptor positive (HCC) Expected: 04/17/2022, Expires: 06/17/2022 [facility] Work Phone: Comment on above: Expected: 04/17/2022, Expires: 3 Start: 04-17-2022 End: 06-17-2022 Ferritin [Mass/volume] in Serum or Plasma FERRITIN BLD Lab Routine Iron deficiency anemia due to chronic blood loss Malignant neoplasm of lower-inner quadrant of right breast of female, estrogen receptor positive (HCC) Expected: 04/17/2022, Expires: 06/17/2022 [facility] Work Phone: Comment on above: Expected: 04/17/2022, Expires: 3 Start: 04-17-2022 End: 06-17-2022 Iron and Iron binding capacity panel - Serum or Plasma IRON + TIBC Lab Routine Iron deficiency anemia due to chronic blood loss Malignant neoplasm of lower-inner quadrant of right breast of female, estrogen receptor positive (HCC) Expected: 04/17/2022, Expires: 06/17/2022 [facility] Work Phone: Comment on above: Expected: 04/17/2022, Expires: 3 Start: 04-17-2022 End: 06-17-2022 RETIC COUNT RETIC COUNT Lab Routine Iron deficiency anemia due to chronic blood loss Malignant neoplasm of lower-inner quadrant of right breast of female, estrogen receptor positive (HCC) Expected: 04/17/2022, Expires: 06/17/2022 [facility] Work Phone: Comment on above: Expected: 04/17/2022, Expires: 3 Start: 04-17-2022 End: 06-17-2022 Transferrin receptor.soluble [Mass/volume] in Serum or Plasma SOLUBLE TRANS RECEPTOR Lab Routine Iron deficiency anemia due to chronic blood loss Malignant neoplasm of lower-inner quadrant of right breast of female, estrogen receptor positive (HCC) Expected: 04/17/2022, Expires: 06/17/2022 [facility] Work Phone: Comment on above: Expected: 04/17/2022, Expires: 3 Start: 03-17-2022 ADVANCE DIRECTIVE DISCUSSION ADVANCE DIRECTIVE DISCUSSION [facility] Start: 03-12-2022 End: 05-12-2022 CBC W Ordered Manual Differential panel - Blood PATHOLOGIST INTERPRETATION WITH CBC AND DIFF Lab Routine Iron deficiency anemia due to chronic blood loss Expected: 03/12/2022, Expires: 05/12/2022 [facility] Work Phone: Comment on above: Expected: 03/12/2022, Expires: 3 Start: 03-06-2022 Administration of blood product [facility] Start: 03-06-2022 [facility] Start: 01-09-2022 Colonoscopy COLONOSCOPY [facility] Start: 01-09-2022 Screening for malignant neoplasm of colon Colonoscopy [facility] Start: 12-28-2021 Administration of blood product [facility] Start: 11-15-2021 Influenza vaccination INFLUENZA (#1) [facility] Start: 10-29-2021 End: 12-29-2021 CBC W Auto Differential panel - Blood CBC + DIFF Lab Routine BRBPR (bright red blood per rectum) Expected: 10/29/2021, Expires: 12/29/2021 [facility] Work Phone: Comment on above: Expected: 10/29/2021, Expires: 2 Start: 10-18-2021 [facility] Work Phone: Start: 10-18-2021 Administration of blood product [facility] Work Phone: Start: 10-18-2021 [facility] Work Phone: Start: 10-15-2021 End: 12-15-2021 CBC W Auto Differential panel - Blood CBC + DIFF Lab Routine Chronic anticoagulation Expected: 10/15/2021, Expires: 12/15/2021 [facility] Work Phone: Comment on above: Expected: 10/15/2021, Expires: 2 Start: 10-15-2021 End: 12-15-2021 PT panel - Platelet poor plasma by Coagulation assay PROTHROMBIN TIME/PT Lab Routine Chronic anticoagulation Expected: 10/15/2021, Expires: 12/15/2021 [facility] Work Phone: Comment on above: Expected: 10/15/2021, Expires: 2 Start: 08-23-2021 Anes hysteroscopy&/hysterosal pingography w/bx ANESTH HYSTEROSCOPE/GRAPH [facility] Work Phone: Start: 08-23-2021 Hysteroscopy bx endometrium&/polypc w/wo d&c HYSTEROSCOPY BIOPSY [facility] Work Phone: Start: 08-23-2021 Patient discharge [facility] Work Phone: Start: 08-23-2021 Ambulation without limitation [facility] Work Phone: Start: 08-23-2021 Medical regimen orders management [facility] Work Phone: Start: 08-23-2021 Medication education [facility] Work Phone: Start: 08-23-2021 Taking patient vital signs [facility] Work Phone: Start: 08-23-2021 Vital signs measurements [facility] Work Phone: Start: 08-23-2021 [facility] Work Phone: Start: 08-10-2021 End: 10-10-2021 Bacteria identified in Urine by Culture URINE CULTURE Microbiology Routine Dysuria Expected: 08/10/2021, Expires: 10/10/2021 [facility] Work Phone: Comment on above: Expected: 08/10/2021, Expires: Start: 04-18-2021 Screening for malignant neoplasm of cervix Cervical Cancer Screening [facility] Start: 03-24-2021 COVID-19 VACCINE (4 - Booster for Moderna series) COVID-19 VACCINE (4 - Booster for Moderna series) [facility] Start: 03-17-2021 ADVANCE DIRECTIVE DISCUSSION ADVANCE DIRECTIVE DISCUSSION [facility] Start: 01-17-2021 COVID-19 VACCINE (4 - Booster for Moderna series) COVID-19 VACCINE (4 - Booster for Moderna series) [facility] Start: 01-17-2021 COVID-19 VACCINE (4 - Moderna series) COVID-19 VACCINE (4 - Moderna series) [facility] Start: 08-02-2011 Shingrix Vaccine (1 of 2) Shingrix Vaccine (1 of 2) [facility] Start: 08-02-2011 SHINGRIX VACCINE (2 of 3) SHINGRIX VACCINE (2 of 3) [facility] Start: 07-13-2011 RSV Vaccine (1 - 1-dose 75+ series) RSV Vaccine (1 - 1-dose 75+ series) [facility] Start: 09-15-2003 Medicare Annual Wellness Visit Medicare Annual Wellness Visit [facility] Start: 1996 HEPATITIS B (1 of 3 - Risk 3-dose series) HEPATITIS B (1 of 3 - Risk 3-dose series) [facility] Start: 1996 Hepatitis B Vaccine (1 of 3 - Risk 3-dose series) Hepatitis B Vaccine (1 of 3 - Risk 3-dose series) [facility] Start: 1996 RSV Vaccine (1 - 1-dose 60+ series) RSV Vaccine (1 - 1-dose 60+ series) [facility] Start: 07-13-1955 HEPATITIS A (1 of 2 - Risk 2-dose series) HEPATITIS A (1 of 2 - Risk 2-dose series) [facility] Start: 07-13-1955 Hepatitis A Vaccine (1 of 2 - Risk 2-dose series) Hepatitis A Vaccine (1 of 2 - Risk 2-dose series) [facility] Start: 07-13-1955 HEPATITIS B (1 of 3 - Risk 3-dose series) HEPATITIS B (1 of 3 - Risk 3-dose series) [facility] Start: 1954 Anxiety Screening Anxiety Screening [facility] Start: 1937 HEPATITIS A (1 of 2 - Risk 2-dose series) [facility] 25-hydroxyvitamin D3 [Mass/volume] in Serum or Plasma VITAMIN D 25 HYDROXY Lab Routine Rheumatoid arthritis involving multiple sites, unspecified whether rheumatoid factor present (HCC) Senile osteoporosis 11/25/2023 1:46 PM EDT [facility] Work Phone: Bacteria identified in Urine by Culture URINE CULTURE Microbiology Routine Dysuria Ordered: 08/08/2021 [facility] Work Phone: Comment on above: Ordered: 08/08/2021 Bacteria identified in Urine by Culture URINE CULTURE Microbiology Routine Recurrent UTI Mixed stress and urge urinary incontinence 08/30/2021 2:06 PM EDT [facility] Work Phone: End: 09-26-2022 Bacteria identified in Urine by Culture URINE CULTURE Microbiology Routine Recurrent UTI 12 Occurrences starting 09/26/2021 until 09/26/2022 [facility] Work Phone: Comment on above: 12 Occurrences starting 09/26/2021 until 09/26/2022 Bacteria identified in Urine by Culture Urine Culture [facility] Work Phone: End: 11-13-2024 C reactive protein [Mass/volume] in Serum or Plasma C-REACTIVE PROTEIN Lab Routine Rheumatoid arthritis involving multiple sites, unspecified whether rheumatoid factor present (HCC) Senile osteoporosis Every 3 months for 5 Occurrences starting 11/14/2023 until 11/13/2024 [facility] Comment on above: Every 3 months for 5 Occurrences startin g 11/14/2023 until 11/13/2024 C reactive protein [Mass/volume] in Serum or Plasma C-REACTIVE PROTEIN Lab Routine Rheumatoid arthritis involving multiple sites, unspecified whether rheumatoid factor present (HCC) Senile osteoporosis 11/25/2023 1:46 PM EDT [facility] C reactive protein [Mass/volume] in Serum or Plasma C-REACTIVE PROTEIN Lab Routine Rheumatoid arthritis involving multiple sites, unspecified whether rheumatoid factor present (HCC) Senile osteoporosis 02/24/2024 1:28 PM EST [facility] Work Phone: C reactive protein [Mass/volume] in Serum or Plasma C-REACTIVE PROTEIN Lab Routine Rheumatoid arthritis involving multiple sites, unspecified whether rheumatoid factor present (HCC) Senile osteoporosis 06/11/2024 1:54 PM EDT [facility] End: 11-13-2024 CBC W Auto Differential panel - Blood COMPLETE BLOOD COUNT AND DIFFERENTIAL Lab Routine Rheumatoid arthritis involving multiple sites, unspecified whether rheumatoid factor present (HCC) Senile osteoporosis Every 3 months for 5 Occurrences starting 11/14/2023 until 11/13/2024 [facility] Comment on above: Every 3 months for 5 Occurrences startin g 11/14/2023 until 11/13/2024 End: 11-13-2024 Comprehensive metabolic 2000 panel - Serum or Plasma COMPREHENSIVE METABOLIC PANEL Lab Routine Rheumatoid arthritis involving multiple sites, unspecified whether rheumatoid factor present (HCC) Senile osteoporosis Every 3 months for 5 Occurrences starting 11/14/2023 until 11/13/2024 [facility] Comment on above: Every 3 months for 5 Occurrences startin g 11/14/2023 until 11/13/2024 End: 03-25-2025 CT Abdomen and Pelvis W contrast IV CT ABD/PEL W IVCON Radiology Routine Iron deficiency anemia due to chronic blood loss Bilateral hip pain Generalized abdominal pain Abdominal bloating Personal history of breast cancer Occult blood in stools 1 Occurrences starting 02/24/2024 until 03/25/2025 [facility] Comment on above: 1 Occurrences starting 02/24/2024 until 03/25/2025 CT Abdomen and Pelvi s W contrast IV CT ABD/PEL W IVCON Radiology Routine Iron deficiency anemia due to chronic blood loss Bilateral hip pain Generalized abdominal pain Abdominal bloating Personal history of breast cancer Occult blood in stools 03/19/2024 11:42 AM EST [facility] Work Phone: End: 03-25-2025 CT Chest W contrast IV CT CHEST W IVCON Radiology Routine Iron deficiency anemia due to chronic blood loss Bilateral hip pain Generalized abdominal pain Abdominal bloating Personal history of breast cancer Occult blood in stools 1 Occurrences starting 02/24/2024 until 03/25/2025 [facility] Comment on above: 1 Occurrences starting 02/24/2024 until 03/25/2025 CT Chest W contrast IV CT CHEST W IVCON Radiology Routine Iron deficiency anemia due to chronic blood loss Bilateral hip pain Generalized abdominal pain Abdominal bloating Personal history of breast cancer Occult blood in stools 03/19/2024 11:42 AM [facility] DXA Skeletal system.axial Views for bone density DXA-AXIAL SKELETON Radiology Routine On prednisone therapy Screening for osteoporosis 06/06/2023 2:38 PM EDT [facility] Work Phone: End: 09-05-2022 ECG COMPLETE [facility] Work Phone: Comment on above: 1 Occurrences starting 09/05/2021 until 09/05/2022 End: 11-13-2024 Erythrocyte sedimentation rate SEDIMENTATION RATE, WESTERGREN Lab Routine Rheumatoid arthritis involving multiple sites, unspecified whether rheumatoid factor present (HCC) Senile osteoporosis Every 3 months for 5 Occurrences starting 11/14/2023 until 11/13/2024 [facility] Comment on above: Every 3 months for 5 Occurrences startin g 11/14/2023 until 11/13/2024 Erythrocyte sedimentation rate SEDIMENTATION RATE, WESTERGREN Lab Routine Rheumatoid arthritis involving multiple sites, unspecified whether rheumatoid factor present (HCC) Senile osteoporosis 06/11/2024 1:54 PM EDT [facility] Work Phone: Ferritin [Mass/volum e] in Serum or Plasma FERRITIN Lab Routine Malignant neoplasm of lower-inner quadrant of right breast of female, estrogen receptor positive (HCC) Iron deficiency anemia due to chronic blood loss 02/24/2024 1:28 PM EST [facility] Work Phone: Ferritin [Mass/volum e] in Serum or Plasma FERRITIN Lab Routine Personal history of breast cancer Iron deficiency anemia due to chronic blood loss 09/21/2024 1:30 PM EDT [facility] Work Phone: Iron and Iron bindin g capacity panel - Serum or Plasma IRON AND TIBC Lab Routine Malignant neoplasm of lower-inner quadrant of right breast of female, estrogen receptor positive (HCC) Iron deficiency anemia due to chronic blood loss 02/24/2024 1:28 PM EST [facility] OCCULT BLD EXAM-DIAG OCCULT BLD EXAM-DIAG Microbiology Routine Iron deficiency anemia due to chronic blood loss Ordered: 03/12/2022 [facility] Work Phone: Comment on above: Ordered: 03/12/2022 PATHOLOGIST INTERPRETATION CBC/DIFF PATHOLOGIST INTERPRETATION CBC/DIFF Lab STAT Iron deficiency anemia due to chronic blood loss 03/22/2022 1:36 PM EST [facility] Work Phone: Patient Education [facility] Work Phone: Patient referral [facility] Work Phone: PT panel - Platelet poor plasma by Coagulation assay PROTHROMBIN TIME/PT Lab Routine Chronic anticoagulation 10/16/2021 9:44 AM EDT [facility] Work Phone: Urinalysis complete panel - Urine [facility] Work Phone: Urine culture [facility] End: 03-25-2025 XR HIP BILATERAL 5V PEL/AP/LAT EACH HIP XR HIP BILATERAL 5V PEL/AP/LAT EACH HIP Radiology Routine Bilateral hip pain 1 Occurrences starting 02/24/2024 until 03/25/2025 [facility] Work Phone: Comment on above: 1 Occurrences starting 02/24/2024 until 03/25/2025 XR HIP BILATERAL 5V PEL/AP/LAT EACH HIP XR HIP BILATERAL 5V PEL/AP/LAT EACH HIP Radiology Routine Bilateral hip pain 03/19/2024 10:00 AM EST [facility] Work Phone: End: 07-09-2024 XR Knee - bilateral 4 Views XR KNEE GENERAL 4V AP BOTH/PA BOTH/LAT/MERC BILATERAL Radiology Routine Primary osteoarthritis of both knees 1 Occurrences starting 06/10/2023 until 07/09/2024 [facility] Work Phone: Comment on above: 1 Occurrences starting 06/10/2023 until 07/09/2024 XR Knee - bilateral 4 Views XR KNEE GENERAL 4V AP BOTH/PA BOTH/LAT/MERC BILATERAL Radiology Routine Primary osteoarthritis of both knees 06/18/2023 8:26 AM EDT [facility] Work Phone: End: 07-05-2023 XR RIBS 2V AP/OBL RIGHT XR RIBS 2V AP/OBL RIGHT Radiology Routine Personal history of breast cancer Rib pain on right side 1 Occurrences starting 06/05/2022 until 07/05/2023 [facility] Work Phone: Comment on above: 1 Occurrences starting 06/05/2022 until 07/05/2023 XR RIBS 2V AP/OBL RIGHT XR RIBS 2V AP/OBL RIGHT Radiology Routine Personal history of breast cancer Rib pain on right side 06/05/2022 12:04 PM EDT [facility] Work Phone: End: 12-25-2023 XR WRIST GENERAL 3V PA/LAT/OBL RIGHT XR WRIST GENERAL 3V PA/LAT/OBL RIGHT Radiology Routine Pain in right wrist 1 Occurrences starting 11/25/2022 until 12/25/2023 [facility] Work Phone: Comment on above: 1 Occurrences starting 11/25/2022 until 12/25/2023 XR WRIST GENERAL 3V PA/LAT/OBL RIGHT XR WRIST GENERAL 3V PA/LAT/OBL RIGHT Radiology Routine Pain in right wrist 11/25/2022 2:29 PM EDT [facility] Work Phone: [facility] Immunizations Immunization Date Immunization Notes Care Provider Fa cili 01-18-2021 influenza, high-dose , quadrivalent vaccine (FLUZONE HIGH DOSE QUADRIVALENT) Aby Bruner DO Work Phone: [facility] Work Phone: 01-18-2021 influenza virus vaccine, unspecified formulation Stella Preciado PA-C Work Phone: [facility] 11-22-2020 COVID-19 vaccine, ag e 12+ yr ([employer] - PURPLE TOP) Aby Zohreh DO Work Phone: [facility] 05-04-2020 COVID-19 vaccine, fu ll dose (MODERNA) Aby Bruner DO Work Phone: [facility] 04-06-2020 COVID-19 vaccine, fu ll dose (MODERNA) Aby Zohreh DO Work Phone: [facility] 12-18-2019 influenza, high-dose , quadrivalent vaccine (FLUZONE HIGH DOSE QUADRIVALENT) Aby Bruner DO Work Phone: [facility] 12-30-2018 influenza, high dose seasonal, preservative-free Aby Bruner DO Work Phone: [facility] Work Phone: 12-09-2017 influenza, high dose seasonal, preservative-free Aby Bruner DO Work Phone: [facility] 12-02-2016 influenza, high dose seasonal, preservative-free Aby Bruner DO Work Phone: [facility] Work Phone: 12-05-2015 influenza, high dose seasonal, preservative-free Aby Bruner DO Work Phone: [facility] 01-10-2015 pneumococcal conjuga te vaccine, 13 valent Aby rBuner DO Work Phone: [facility] Work Phone: 12-12-2014 influenza, high dose seasonal, preservative-free Aby Bruner DO Work Phone: [facility] 12-22-2013 influenza, seasonal, injectable Aby Bruner DO Work Phone: [facility] 01-09-2013 influenza virus vaccine, unspecified formulation Aby Bruner DO Work Phone: [facility] Work Phone: 11-17-2012 tetanus toxoid, redu issac diphtheria toxoid, and acellular pertussis vaccine, adsorbed Aby Bruner DO Work Phone: [facility] 01-16-2012 influenza virus vaccine, unspecified formulation Aby Bruner DO Work Phone: [facility] 06-07-2011 zoster vaccine, live Opal Bruner DO Work Phone: [facility] 02-01-2011 influenza virus vaccine, unspecified formulation Aby Bruner DO Work Phone: [facility] Work Phone: 01-29-2010 influenza virus vaccine, unspecified formulation Aby Bruner DO Work Phone: [facility] 12-24-2008 influenza virus vaccine, unspecified formulation Aby Bruner DO Work Phone: [facility] 01-20-2008 influenza virus vaccine, unspecified formulation Aby Bruner DO Work Phone: [facility] 12-21-2007 pneumococcal polysaccharide vaccine, 23 valent Aby Bruner DO Work Phone: [facility] Work Phone: 01-14-2007 influenza virus vaccine, unspecified formulation Aby Bruner DO Work Phone: [facility] Work Phone: 01-27-2006 influenza virus vaccine, unspecified formulation Aby Bruner DO Work Phone: [facility] 01-24-2005 influenza virus vaccine, unspecified formulation Aby Bruner DO Work Phone: [facility] Work Phone: 05-15-2002 tetanus and diphther ia toxoids, adsorbed, preservative free, for adult use (2 Lf of tetanus toxoid and 2 Lf of diphtheria toxoid) Aby Bruner DO Work Phone: [facility] Work Phone: NEGATED: Highlighted row has not occurred!01-12-2021 influenza, high-dose, quadrivalent vaccine (FLUZONE HIGH DOSE QUADRIVALENT) Aby Bruner DO Work Phone: [facility] Comment on above: Deferred: Patient Re fused - states she wants to wait to get it at scheduled appt in Nov Payers Date Payer Category Payer Medicaid [place]ICAID [place] [id number] 2024 Medicaid [id number] 2024 Self-pay [id number] 2016 [facility] ANTHEM ME DICARE SUPPLEMENT [id number] 2016 Unknown ANTHEM ANTHEM ME DICARE SUPPLEMENT [id number] 2016-Present [phone] [id number] [place], [place] [address] Indemnity [id number] 2016 Unknown ANTHEM ANTHEM ME DICARE SUPPLEMENT [id number] 2016-Present [phone] [id number] [place] [id number] Indemnity [id number] 2003 Medicare MEDICARE MEDICAR E A AND B [id number] 2003-Present [phone] [place] [address] Medicare [id number] 2003 Medicare [id number] 2003 Unknown [id number] 2003 Medicare [id number] Unknown [id number] 2.16.840.1.744516.3.579.2. 462 Unknown [id number] 2.16.840.1.538971.3.579.2. 462 Unknown [id number] 2.16.840.1.399327.3.579.2. 462 Unknown [id number] 2.16.840.1.553887.3.579.2. 462 Unknown [id number] 2.16.840.1.333602.3.579.2. 462 Unknown [id number] 2.16.840.1.359719.3.579.2. 462 Unknown [id number] 2.16.840.1.338252.3.579.2. 462 Unknown [id number] 2.16.840.1.933994.3.579.2. 462 Unknown [id number] 2.16.840.1.252256.3.579.2. 462 Unknown [id number] 2.16.840.1.292985.3.579.2. 462 Unknown [id number] 2.16.840.1.324609.3.579.2. 462 Unknown [id number] 2.16.840.1.357599.3.579.2. 462 Unknown [id number] 2.16.840.1.654637.3.579.2. 462 Unknown [id number] 2.16.840.1.281942.3.579.2. 462 Unknown [id number] 2.16.840.1.740279.3.579.2. 462 Unknown [id number] 2.16.840.1.401235.3.579.2. 462 Unknown [id number] 2.16.840.1.046813.3.579.2. 462 Unknown [id number] 2.16.840.1.437823.3.579.2. 462 Unknown [id number] 2.16.840.1.914060.3.579.2. 462 Unknown [id number] 2.16840.1.415714.3.579.2. 462 Unknown [id number] 2.16840.1.998113.3.579.2. 462 Unknown [id number] 2.16840.1.670162.3.579.2. 462 Unknown [id number] 2.16840.1.517363.3.579.2. 462 Unknown [id number] 2.840.1.374047.3.579.2. 462 Unknown [id number] 2.840.1.194077.3.579.2. 462 Unknown [id number] 2.840.1.981542.3.579.2. 462 Unknown [id number] 2.840.1.721029.3.579.2. 462 Unknown [id number] 2.840.1.339313.3.579.2. 462 Unknown [id number] 2.840.1.602964.3.579.2. 462 Unknown [id number] 2.840.1.392908.3.579.2. 462 Unknown [id number] 2.840.1.218719.3.579.2. 462 Unknown [id number] 2.840.1.641749.3.579.2. 462 Unknown [id number] 2.840.1.477802.3.579.2. 462 Unknown [id number] 2.840.1.651308.3.579.2. 462 Unknown [id number] 2.840.1.300619.3.579.2. 462 Unknown [id number] 2.840.1.822038.3.579.2. 462 Unknown [id number] 2.16.840.1.774246.3.579.2. 462 Unknown [id number] 2.16.840.1.663483.3.579.2. 462 Unknown [id number] 2.16.840.1.057580.3.579.2. 462 Unknown [id number] 2.16.840.1.637369.3.579.2. 462 Unknown [id number] 2.16.840.1.204726.3.579.2. 462 Unknown [id number] 2.16.840.1.967238.3.579.2. 462 Unknown [id number] 2.16.840.1.547997.3.579.2. 462 Social History Date Type Detail Facility Start: 01-02-2022 End: 11-22-2024 Tobacco smoking status NHIS Never smoked tobacco [facility] Start: 06-05-2021 End: 09-21-2024 Alcohol intake Current non-drinker of alcohol (finding) [facility] Start: 01-23-2020 End: 01-18-2021 History SDOH Alcohol Frequency 1 [facility] Start: 01-23-2020 History SDOH Social Connections Phone 5 [facility] Start: 01-23-2020 History SDOH Social Connections Get Together 98 [facility] Start: 01-23-2020 History SDOH Social Connections Living 3 [facility] Start: 01-23-2020 End: 01-18-2021 History SDOH Stress 2 [facility] Start: 01-23-2020 Education 17 [facility] Start: 1935 Sex Assigned At Female C [facility] Work Phone: Start: 04-05-2020 End: 01-21-2022 Exposure to SARS-CoV-2 (event) Not sure [facility] Start: 06-09-2021 End: 08-08-2021 Exposure to SARS-CoV-2 (event) Unable to assess [facility] Work Phone: Start: 07-03-2021 End: 04-07-2023 Tobacco smoking status NHIS Unknown if ever smoked [facility] Start: 02-15-2021 None [facility] Start: 02-15-2021 Non-smoker [facility] Start: 01-02-2022 Tobacco use and exposure Smokeless tobacco non-user [facility] Start: 01-23-2020 End: 07-15-2023 History of Social function [facility] Start: 01-23-2020 End: 07-15-2023 Social connection and isolation panel [facility] Start: 02-16-2012 How often do you get together with friends or relatives? Patient refused [facility] Are you now , , , , never or living with a partner? [facility] How often to you hav e a drink containing alcohol? Never [facility] Do you feel stress - tense, restless, nervous, or anxious, or unable to sleep at night because your mind is troubled all the time - these days [OSQ] Only a little [facility] (I/We) worried wheth er (my/our) food would run out before (I/we) got money to buy more. Never true [facility] In the past 12 month s, was there a time when you were not able to pay the mortgage or rent on time? No [facility] Start: 06-06-2018 Gender identity Identifies as female gender (finding) [facility] Start: 07-28-2019 Sexual orientation Heterosexual (anna lama) [facility] Work Phone: Start: 06-18-2024 End: 06-18-2024 Sex Female (finding) [facility] Goals Date Patient Goal Desired Activity /State Functional Status Date Assessment Result Facility 08-13-2021 Are you deaf, or do you have serious difficulty hearing No 08/13/2021 2:10 PM EDT Tasha Lovell APRN.CNP No [facility] Work Phone: 08-13-2021 Are you blind, or do you have serious difficulty seeing, even when wearing glasses No 08/13/2021 2:10 PM EDT Tasha Lovell APRN.CNP No [facility] 08-13-2021 Do you have serious difficulty walking or climbing stairs No 08/13/2021 2:10 PM EDT Tasha Lovell APRN.CNP No [facility] 08-13-2021 Do you have difficul ty dressing or bathing No 08/13/2021 2:10 PM EDT Tasha Lovell APRN.CNP No [facility] 08-13-2021 Because of a physica l, mental, or emotional condition, do you have difficulty doing errands alone such as visiting a physician's office or shopping No 08/13/2021 2:10 PM EDT Tasha Lovell APRN.INCOME TAX PREPARER No [facility] Mental Status Date Assessment Result Facility 03-06-2022 Cognitive function Voice/Name [facility] Work Phone: 12-28-2021 Cognitive function Level Of Cons ciousness Awake;Alert;Follows Commands [facility] Work Phone: 10-18-2021 Cognitive function Level Of Cons ciousness Awake;Alert;Appropriate;Fol lows Commands [facility] Work Phone: 08-23-2021 Cognitive function Level Of Cons ciousness Awake;Alert;Appropriate [facility] Work Phone: 08-23-2021 Cognitive function Voice/Name [facility] Work Phone: 08-13-2021 Because of a physica l, mental, or emotional condition, do you have serious difficulty concentrating, remembering, or making decisions No 08/13/2021 2:10 PM EDT Tasha Lovell APRN.INCOME TAX PREPARER No [facility] Clinical Notes 05-05-2020 to 11-23-2024 Daysi Adame [...] in couple weeks willl be on steriod. [facility]dc- Prolia Images from the original note were [...] visit. Either the patient or their legal customer development representative has been informed of the risks [...] standing Arrhythmia Arthritis Asthma (HCC) Atrial fibrillation ([facility]) 2009 Atrophic vaginitis Benign neoplasm of colon [...] benign mass on liver PMR (polymyalgia rheumatica) ([facility]) 2012 Pure hypercholesterolemia Snoring Squamous cell cancer [...] Take 1 tablet by mouth once daily. [id number] 500 mg-5 mcg (200 unit) per [...] Thalia Monterroso MD documented in this encounter [facility] 09-22-2024 Telephone encounter Note Eloisa called back and confirmed the below information and appointment in March, Parul Carrillo Pss [facility] 09-22-2024 Miscellaneous Notes Eloisa called back and [...] with CBC/iron studies. Thank you. Cassidy Arreola APRN.INCOME TAX PREPARER documented in this encounter [facility] 09-22-2024 Telephone encounter Note I called and left a message for Eloisa to call back to receive the below information and to confirm the scheduled follow-up visit for 03/2025. Parul Carrillo Pss [facility] 09-22-2024 Telephone encounter Note Please inform pt. and daughter that iron studies look good. Follow up in 6 months with CBC/iron studies. Thank you. Cassidy Arreola APRN.INCOME TAX PREPARER [facility] Work Phone: 09-21-2024 History of Present illness [...] for both; strong for ER, moderate for GA). HER-2 3+. Had been using Estrace cream [...] Wire Localization: Wire absent Lymph Node Sampling: Sharon lymph node(s) Tumor size: Size of largest [...] tamoxifen therapy. S/p underwent hysteroscopy D&C at [facility] on 08/23/[address] Hebert. Path. Benign. Pt. resides at [facility]. Pt. here today with her daughter. Pt. last received two doses of iron sucrose 2023-after + stool cards. Multiple falls over past few months. Last one was last week-was seen in [facility] ED-CT head/neck done-neg. per daughter. On [...] pt declines colonoscopy-was seen by GI/ at [facility]. :denies dysuria/hematuria-chronic UTI-followed by Urology Extrem:h/o [...] V10.3, ICD10: Z85.3 (primary diagnosis) pT1b pN0(sln) ER/GA positive, HER2 positive invasive ductal carcinoma the [...] as necessary for today's visit. Cassidy Arreola APRN.INCOME TAX PREPARER documented in this encounter [facility] 09-21-2024 History of Present illness Narrative Patient is here for IVAD port flush/blood draw per [facility] protocol. IVAD is located in right upper [...] tolerated procedure well. documented in this encounter [facility] 09-14-2024 Radiology Diagnostic study note [facility] Imaging Services [address] [place], [place] [id number] Elbow min 3 Views MR#: [id number] Acct: [id number] Name: CHRISTIAN LANDRUM Rep #: [id number] : 1935 F 89 From: Tegan Brito MD PCP: Galina Horner, OLIVE Status: REG ER Study:Elbow min 3 Views Date of Exam: Exam# [id number] Ordering Dr: Clementina Torres DO PROCEDURE: ELBOW MIN 3 VIEWS 09/14/2024 REASON FOR EXAM: PAIN TECHNIQUE: ELBOW MIN 3 VIEWS COMPARISON: None FINDINGS: There is no fracture or dislocation identified. There is no visible joint effusion. Mineralization is normal. There is no visible atherosclerosis. RAD/Elbow min 3 Views IMPRESSION: No fracture or dislocation is identified. Reading Location: [facility] CC: [employer] HELPER-C Galina Horner; Sung Torres DO ~ Transportation Engineer: Signed [facility] 09-14-2024 Radiology Diagnostic study note [facility] Imaging Services [address] [place], [place] [address] Pelvis 1 or 2 Views MR#: [id number] Acct: [id number] Name: CHRISTIAN LANDRUM Rep #: [id number] : 1935 F 89 From: Tegan Brito MD PCP: OLIVE Puckett Status: REG ER Study:Pelvis 1 or 2 Views Date of Exam: 09/14/24 Exam# [id number] Ordering Dr: Clementina Torres DO PROCEDURE: PELVIS [...] fracture is identified. Reading Location: [place] CC: [employer] HELPER-Ana M Torres DO ~ Transportation Engineer: Signed [facility] 09-14-2024 Radiology Diagnostic study note [facility] Imaging Services [address] [place], [place] [id number] Spine Cervical without Contras MR#: [id number] Acct: [id number] Name: CHRISTIAN LANDRUM Rep #: [id number] : 1935 F 89 From: Tegan Brito MD PCP: OLIVE Puckett Status: REG ER Study:Spine Cervical without Contras Date of Exam: 09/14/24 Exam# [id number] Ordering Dr: Clementina Torres DO PROCEDURE: SPINE [...] acute traumatic injury. Reading Location: [place] CC: [employer]PER-C Galina Horner; Sung Torres DO ~ Transportation Engineer: Signed [facility] 09-14-2024 Radiology Diagnostic study note [facility] Imaging Services [address] [place] [address] Brain/Head without Contrast MR#: [id number] Acct: [id number] Name: CHRISTIAN LANDRUM Rep #: [id number] : 1935 F 89 From: Tegan Brito MD PCP: OLIVE Puckett Status: REG ER Study:Brain/Head without Contrast Date of Exa m: 09/14/24 Exam# [id number] Ordering Dr: Clementina Torres DO EXAM: NONCONTRAST [...] intracranial pathology. Reading Location: [place] CC: OLIVE Horner; DO Keyur Etienne Transportation Engineer: Signed [facility] 08-30-2024 Telephone encounter Note August 30, 2024 8:14 AM 1st attempt to schedule - Left detailed voicemail message If patient calls back please help schedule 3 [address] follow up with [address]. Monterroso (SARAH) or Aileen (Stevan) Postponed for 2nd attempt [facility] 08-30-2024 Miscellaneous Notes August 30, 2024 8:14 AM 1st attempt to schedule - Left detailed voicemail message If patient calls back please help schedule 3 mo follow up with Dr. Monterroso (SARAH) or Aileen (Stevan) Postponed for 2nd attempt documented in this encounter [facility] 08-27-2024 History of Present illness Narrative Images from the original note were not included. RHEUMATOLOGY CLINIC FOLLOW-UP NOTE PROVIDER: Thalia Monterroso MD [facility] VISIT This Team Access Model visit is a virtual encounter. It required patient-provider interaction for the medical decision making as documented below. I have communicated my name and active licensure. The patient's identity and physical location were verified at the time of this visit. Either the patient or their legal customer development representative has been informed of the risks [...] right breast of female, estrogen receptor positive ([facility]) 06/03/2017 Mitral valve disorders(424.0) and irregular heartbeat on occasion stress related Mixed stress and urge urinary incontinence Osteoarthrosis, unspecified whether generalized or localized, other specified sites 07/22 vit D 41 Other diseases of pharynx, not elsewhere classified(478.29) Other extrapyramidal disease and abnormal movement disorder PMH - PAST MEDICAL HISTORY OF benign mass on liver PMR (polymyalgia rheumatica) ([facility]) 2012 Pure hypercholesterolemia Snoring Squamous cell cancer [...] Take 1 tablet by mouth once daily. 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 The [employer] HELPER at the retirement increased her prednisone from 20 to 40 [...] of starting prolia documented in this encounter [facility] 08-18-2024 Evaluation note Diagnosis Onset Date Resolution Fall acute August 18, 2024 2:33pm Fx distal ulna-closed acute August 18, 2024 2 :33pm Fall acute September 03 1:55pm Fx distal ulna-closed acute September 03, 2024 1:55pm Change in bowel habits acute September 07, 2024 2:24pm Fall acute September 24 1:58pm Fx distal ulna-closed acute September 24, 2024 1:58pm Fx distal ulna-closed acute October 22, 2024 1:53pm Change in bowel habits acute November 22 10:58am [facility] Work Phone: 1(278) 416-258205-30-2025 Evaluation note* Diagnosis Onset Date Resolution Status Admit Date Fall acute August 13, 2024 2:06pm Fx distal ulna-closed acute August 13, 2024 2:06pm [facility] Work Phone: 1(154) 572-326305-30-2025 Evaluation note* Diagnosis Onset Date Resolution Status Admit Date Fall acute August 13, 2024 2:06pm Fx distal ulna-closed acute August 13, 2024 2:06pm Fall acute August 18, 2024 2:33pm Fx distal ulna-closed acute Aug 2:33pm [facility] Work Phone: 1(373) 182-359705-30-2025 Evaluation note* Diagnosis Onset Date Resolution Status Admit Date Fall acute August 13, 2024 2:06pm Fx distal ulna-closed acute August 13, 2024 2:06pm Fall acute August 18, 2024 2:33pm Fx distal ulna-closed acute Aug 2:33pm Fall acute September 03 1:55pm Fx distal ulna-closed acute Aug 1:55pm [facility] Work Phone: 1(374) 168-488105-30-2025 Evaluation note* Diagnosis Onset Date Resolution Status Admit Date Fall acute August 13, 2024 2:06pm Fx distal ulna-closed acute August 13, 2024 2:06pm Fall acute August 18, 2024 2:33pm Fx distal ulna-closed acute Aug 2:33pm Fall acute September 03 1:55pm Fx distal ulna-closed acute Fernando 2024 1:55pm Change in bowel habits acute 2024 2:24pm [facility] Work Phone: 1(673) 602-603805-30-2025 Evaluation note* Diagnosis Onset Date Resolution Status [...] 1:58pm Fx distal ulna-closed acute Sep 1:58pm [facility] Work Phone: 1(518) 931-909205-30-2025 Evaluation note* Diagnosis Onset Date Resolution Status [...] distal ulna-closed acute Aug ust 2024 1:53pm [facility] Work Phone: 1(117) 701-116105-25-2025 Radiology Diagnostic study note [facility] Imaging Services [address] [place] [id number] Abd/Pelvis W/WO Contrast MR#: [id number] Acct: [id number] Name: CHRISTIAN LANDRUM Rep #: [id number] : 1935 F 89 From: Celi Man MD PCP: Dr. Reji Reyna MD Status: R EG CLI Study:CT Abd/Pelvis W/WO Contrast Date of Exa m: 08/06/24 Exam# [id number] Ordering Dr: Hiwot Abdullahi MD PROCEDURE: CT [...] the stomach suggestive of gastritis. Reading Location: [place] [address] CC: Dr. Reji Reyna MD; Dr. Hiwot Abdullahi MD ~ Transportation Engineer: Signed [facility]04-02-2025 Telephone encounter Note* Telephone Encounter - Daly Kaiser LPN - 06/16/2024 3:[address] Monterroso please advise outside labs thank you. Daly Kaiser LPN June 16, 2024 3:40 PM Media Information File Link Scan on 06/16/2024 3:39 PM by Daly Kaiser LPN: OUTSIDE LAB RESULTS 06/16/24 [facility]04-02-2025 Miscellaneous Notes* Telephone Encounter - Daly Kaiser LPN - 06/16/2024 3:[address] Monterroso please advise outside labs thank you. Daly Kaiser LPN June 16, 2024 3:40 PM Media Information File Link Scan on 06/16/2024 3:39 PM by Daly Kaiser LPN: OUTSIDE LAB RESULTS 06/16/24 [facility] History of Present illness Narrative* Thalia Monterroso MD - 05/21/2024 11:09 AM EST Images from the original note were not included. RHEUMATOLOGY CLINIC FOLLOW-UP NOTE PROVIDER: Thalia Monterroso MD [facility] VISIT This Team Access Model visit is a virtual encounter. It required patient- provider interaction for the medical decision making as documented below. I have communicated my name and active licensure. The patient's identity and physical location wereverified at the time of this visit. Either the patient or their legal customer development representative has been informed of the risks [...] 2012 (elevated ESR and CRP at the [facility]). She started to develop symptoms of [...] Take 1 tablet by mouth once daily. nehsaez-awmnkafrg-hpohegj D3 500 mg-5 mcg (200 unit) per [...] and ongoing use of steroids. Reclast #1 9/26/24 We discussed Prolia today as an option. Risk o fracture is high due to ongoing use of steroids it is difficult for her to leave the facility to Prolia may be a good option for her to get at her retirement. We will discuss more next time 3. [...] last infusion was 01/28/24 [facility] History of Present illness Narrative* Kamila Burns [...] PATIENT PRESENTS WITH AN IMPLANTABLE OR ATTACHED IT BUSINESS PROCESS ARCHITECT: No ALLERGIES: Reviewed and unchanged CONTRAST ALLERGY: [...] PERIPHERAL IV DATA: power port accessed by [employer]agine RADIOLOGY DEPARTMENT: CT; Exam(s) Completed: Chest Abdomen Pelvis SIGNATURE: RT Rajinder(Palma) PATIENT NAME: Christian Landrum DATE: March 19, 2024 TIME: 2:31 PM documented in this [facility]01-[facility]-2025 History of Present illness Narrative* Page Ruiz [...] PATIENT PRESENTS WITH AN IMPLANTABLE OR ATTACHED IT BUSINESS PROCESS ARCHITECT: No RADIOLOGY DEPARTMENT: General X-ray: Exam(s) Completed: Pelvis X-Ray: Pelvis with Hip Bilateral PERIPHERAL IV DATA: Not applicable SIGNED BY: RT Nithin(R) March 19, 2024 10:49 AM documented in this [facility]12-27-2024 History of Present illness Narrative* Vania Horan RN - 03/12/2024 2:26 PM EST Patient's daughter states "mom had some pain, aches, after her last Iron when it was pushed in" Infusing this dose over 30 minutes with daughter in agreement. [facility]12-[facility]24 History of Present illness Narrative* Thalia Monterroso MD - 03/05/2024 9:08 AM EST Images from the original note were not included. RHEUMATOLOGY CLINIC FOLLOW-UP NOTE PROVIDER: Thalia Monterroso MD [facility] VISIT This Team Access Model visit is a virtual encounter. It required patient- provider interaction for the medical decision making as documented below. I have communicated my name and active licensure. The patient's identity and physical location wereverified at the time of this visit. Either the patient or their legal customer development representative has been informed of the risks [...] 2012 (elevated ESR and CRP at the [facility]). She started to develop symptoms of [...] Take 1 tablet by mouth once daily. rhyhauk-qdbgfdzls-lnproyy D3 500 mg-5 mcg (200 unit) per [...] 08/28/23, most recent infusion 01/28/24) Seeing pall miriam, getting tramadol 50 mg every 6 hours [...] to look for mets documented in [facility]12-[facility]24 Telephone encounter Note * Telephone Encounter - Cassidy Arreola APRN.CNP - 03/03/2024 9:56 AM EST Noted. Cassidy Arreola APRN.CNP [facility] Work Phone: 1(238) 407-268812-18-2024 Miscellaneous Notes* Telephone Encounter - Cassidy Arreola APRN.CNP - 03/03/2024 9:56 AM EST Noted. Cassidy E Arreola, IRON INSTALLER.INCOME TAX PREPARER * Telephone Encounter - Sadie Gann LPN - 03/02/2024 4:37 PM EST Spoke with pt. Daughter , she informed she is not sure if RA is the cause of pt. Pain, or if it is from the iron infusions. CRP and Sed rates are both elevated, they have appt. With tariff compiler onFriday . Will keep appts. 03/08 and [...] appointments that were requested. Patient is seeing tariff compiler on Friday. Transferred call to nurse. Meredith [...] get those visits rescheduled. documented in this [facility]12-17-2024 Telephone encounter Note * Telephone Encounter - Sadie Gann LPN - 03/02/2024 4:37 PM EST Spoke with pt. Daughter , she informed she is not sure if RA is the cause of pt. Pain, or if it is from the iron infusions. CRP and Sed rates are both elevated, they have appt. With tariff compiler oniday . Will keep appts. 03/08 and 03/12 unless she becomes more painful , will have CT scans on 03/19 , and depending on those results will make a decision to proceed further or stop. Sadie Gann LPN [facility]12-17-2024 Telephone encounter Note* Telephone Encounter - Meredith Alonzo - 03/02/2024 4:29 PM EST Spoke with patient's daughter. They are not sure if the pain is from her RA of if her cancer is active again. Cancelled the 2 appointments that were requested. Patient is seeing tariff compiler on Friday. Transferred call to nurse. Meredith Alonzo [facility]12-17-2024 Telephone encounter Note* Telephone Encounter - Anneliese Garcia LPN - 03/02/2024 4:12 PM EST Tried to call daughter, no answer. Wanted to see if her pain was from her rheumatoid arthritis, which Cassidy noted in her OV on 02/24/24. Please assist in rescheduling. Anneliese Garcia LPN [facility]12-17-2024 Telephone encounter Note* Telephone Encounter - Alvina Mane - 03/02/2024 4:01 PM EST Daughter is calling to state patient is in a lot of pain, hard to even get out of her chair. They want to cancel 03/03 and 03/05 and would like to get those visits rescheduled. [facility]12-10-2024 History of Present illness Narrative* Cassidy Arreola APRN.INCOME TAX PREPARER - 02/24/2024 1:49 PM EST Chief Complaint [...] for both; strong for ER, moderate for GA). HER-2 3+. Had been using Estrace cream [...] Wire Localization: Wire absent Lymph Node Sampling: Sharon lymph node(s) Tumor size: Size of largest [...] tamoxifen therapy. S/p underwent hysteroscopy D&C at [facility] on 08/23/[address] Hebert. Path. Benign. Pt. resides at [facility]. Pt. here today with her [...] k/uL 0.67 (L) 0.54 (L) 0.92 (L) Paulding% % 12.3 8.8 12.1 Abs Paulding <0.87 k/uL 1.02 (H) 0.46 1.15 (H) [...] ICD10: Z08, Z85.3 (primary diagnosis) pT1b pN0(sln) ER/GA positive, HER2 positive invasive ductal carcinoma the [...] discussed with the Patient or Patient's Authorized Flight Controls Engineer. Asapplicable, any other physician, advance practice provider, medical student, or other health professional student that will be observing or involved in the sensitive examination for educational or training purposes was discussed with the Patient or Authorized Flight Controls Engineer. The Patient or Authorized Flight Controls Engineer has agreed to proceed with the sensitive examination. (Sensitive examination includes inspection and/or palpation of the breasts, pelvis, prostate and anorectal regions) The patient indicates understanding of these issues and agrees with the plan. All documentation from previous visit of 08/19/23-Dr. Bonilla/myself was copied and pasted, documentation has been reviewed and edited as necessary for today's visit. Cassidy Arroela APRN.INCOME TAX PREPARER documented in this encounterKind[facility]12-10-2024 History of Present illness Narrative* Vania Horan RN - 02/24/2024 8:07 AM EST . documented in this encounterKind[facility]11-08-2024 Telephone encounter Note * Telephone Encounter - Nicole Childs MA - 01/23/2024 4:33 PM EST Spoke with louisa Informed her of increased prednisone instructions and I will also fax this phone encounter. Louisa will speak with patients daughter for them to take note if they feel she has a flare up 1-2 weeks prior to infusion [facility]11-08-2024 Miscellaneous Notes* Telephone Encounter - Nicole Childs [...] Dr. Monterroso's instructions to the facility at [phone] Last ov 11/14/23 Rheumatoid arthritis involving multiple [...] Lymph 1.00 - 4.00 k/uL 0.54 (L) Paulding% % 8.8 Abs Paulding <0.87 k/uL 0.46 Eosin% % 0.4 Abs [...] 01/23/2024 12:31 PM EST Louisa, nurse at [facility], feels patient may be having a flare. Has lots of pain in herhands. Asking for call back please. Louisa at [place] [phone] Thanks! DHEERAJ Leyva documented in this encounterKind[facility] Healthcare11-08-2024 Telephone encounter Note * Telephone Encounter - [...] she'dlike to try to increase her dose. [facility]11-08-2024 Telephone encounter Note* Telephone Encounter - Nicole [...] Dr. Monterroso's instructions to the facility at [phone] Last ov 11/14/23 Rheumatoid arthritis involving multiple [...] Lymph 1.00 - 4.00 k/uL 0.54 (L) Paulding% % 8.8 Abs Paulding <0.87 k/uL 0.46 Eosin% % 0.4 Abs [...] 0.6 Legend: (L) Low (H) High [facility]11-08-2024 Telephone encounter Note* Telephone Encounter - Selma Mcdaniel - 01/23/2024 12:31 PM EST Louisa, nurse at [facility], feels patient may be having a flare. Has lots of pain in herhands. Asking for call back please. Louisa at [facility] [phone] Thanks! Selma Mcdaniel, DHEERAJ [facility]09-26-2024 History of Present illness Narrative* Andria Joyner RN - 12/11/2023 11:27 AM EDT Denies any dental issues or concerns. No extractions or root canals in the last 6 months. Daughter present. Andria Joyner RN documented in this encounterKindred Healthcare09-19-2024 History of Present illness Narrative* Cesia Rangel RN - 12/04/2023 10:22 AM EDT Secure chat, as well as Page sent to Dr. Monterroso regarding Reclast. Unable to reach at this time. Daughter aware and ok with waiting until next tx. Cesia Rangel, DAMION documented in this encounterKindred Healthcare09-11-2024 Telephone encounter Note * Telephone Encounter - Sadie Gann LPN - 11/26/2023 11:51 AM EDT Faxed, spoke with chetan at [facility] , they did receive. Sadie Gann LPN [facility]09-11-2024 Miscellaneous Notes* Telephone Encounter - Sadie Gann LPN - 11/26/2023 11:51 AM EDT Faxed, spoke with chetan at [facility] , they did receive. Sadie Gann LPN * Telephone Encounter - Page Robles - 11/26/2023 10:39 AM EDT Received call from [facility]. They stated a fax came thru this morning, however, they only received Cover Page. Please resubmit. [phone] * Telephone Encounter - Sadie Gann LPN - 11/26/2023 9:43 AM EDT spoke with pts. SLAUGHTER, given information concerning her iron studies. Also informed Dr. Bonilla notation was sent to [facility] attn: herminia horner so additional labs [...] and note from Herminia Horner NP from retirement. Daughter states -pt has had a drop in her Hgb to 9.9 from 11/03/23. (labs and note placed on your desk) -Pt has occult blood x 3 but pt does not want a colonoscopy. -Saw Dr Loc gates on 11/14/23, adding Reclast. -Pt having Iron studies drawn today. daughter asking if pt needs iron infusions prior to starting Reclast. Will need to let [facility] [employer] (fax [phone]) and daughter Eloisa. Anneliese Garcia LPN documented in this encounterKindred Healthcare09-11-2024 Telephone encounter Note * Telephone Encounter - Page Robles - 11/26/2023 10:39 AM EDT Received call from [facility]. They stated a fax came thru this morning, however, they only received Cover Page. Please resubmit. [phone] [facility] Work Phone: 1(630) 612-530609-11-2024 Telephone encounter Note* Telephone Encounter - Sadie Gann LPN - 11/26/2023 9:43 AM EDT spoke with pts. BRENNANA, given information concerning her iron studies. Also [facility] hermin[facility] hor[facility] so additional labs can be done. Daughter voiced understanding. Sadie Gann LPN [facility]09-10-2024 Telephone encounter Note* Telephone Encounter - Sal [...] TSH and copper level. Sal Bonilla DO [facility]09-10-2024 Telephone encounter Note* Telephone Encounter - Anneliese Garcia LPN - 11/25/2023 1:52 PM EDT Pt here today for labs. Daughter brings labs and note from Herminia Horner [employer] from retirement. Daughter states -pt has had a drop in her Hgb to 9.9 from 11/03/23. (labs and note placed on your desk) -Pt has occult blood x 3 but pt does not want a colonoscopy. -Saw Dr Loc gates on 11/14/23, adding Reclast. -Pt having Iron studies drawn today. daughter asking if pt needs iron infusions prior to starting Reclast. Will need to let [facility] (fax [phone]) and daughter Eloisa. Anneliese Garcia LPN [facility]09-10-2024 Telephone encounter Note* Telephone Encounter - Sal Bonilla DO - 11/25/2023 12:00 PM EDT Thank you. Filed. Sal Bonilla DO [facility]09-10-2024 Miscellaneous Notes* Telephone Encounter - Sal Bonilla DO - 11/25/2023 12:00 PM EDT Thank you. Filed. Sal Bonilla DO * Telephone Encounter - Anneliese Garcia LPN - 11/25/2023 11:56 AM EDT Pended lab orders. Anneliese Garcia LPN documented in this encounterKindred Healthcare09-10-2024 Telephone encounter Note * Telephone Encounter - Anneliese Garcia LPN - 11/25/2023 11:56 AM EDT Pended lab orders. Anneliese Garcia LPN [facility]08-30-2024 History of Present illness Narrative* Thalia Monterroso MD - 11/14/2023 10:55 AM EDT Images from the original note were not included. RHEUMATOLOGY CLINIC FOLLOW-UP NOTE PROVIDER: Thalia Monterroso MD [facility] VISIT This Team Access Model visit is a virtual encounter. It required patient- provider interaction for the medical decision making as documented below. I have communicated my name and active licensure. The patient's identity and physical location wereverified at the time of this visit. Either the patient or their legal customer development representative has been informed of the risks [...] 2012 [facility] [facility]). She started to develop symptoms of [...] Take 1 tablet by mouth once daily. ytqphyd-pengkbwnq-zedhuee D3 500 mg-5 mcg (200 unit) per [...] with more than 50% of the total oebr-kj-feqs time of the visit in counseling / coordination of care. documented in this encounterKindred Healthcare07-25-2024 History of Present illness Narrative* Andria Joyner RN - 10/09/2023 11:11 AM EDT Pt requesting to have the infusion over 2 hours. States the two previous infusions were fine and noside effects during or when she got home. Andria Joyner RN documented in this encounterKindred Healthcare06-05-2024 Telephone encounter Note * Telephone Encounter - Page Robles - 08/20/2023 11:43 AM EDT Scheduled 1st treatment with [facility]. 3 cycles entered. Start email sent [facility] Work Phone: 1(740) 534-470006-05-2024 Miscellaneous Notes* Telephone Encounter - Page Robles - 08/20/2023 11:43 AM EDT Scheduled 1st treatment with [facility]. 3 cycles entered. Start email sent * Telephone Encounter - Page Robles - 08/19/2023 3:16 PM EDT Please call Loli at [facility] when ready to schedule. [phone] * Telephone Encounter - Page Robles - 08/19/2023 2:13 PM EDT Eloisa Moser called stating that [facility] will be calling to schedule Renflexis in [place]. Dr. Monterroso ordering. Please review and advise. documented in this encounterKindred Healthcare06-04-2024 Telephone encounter Note * Telephone Encounter - Elie Valencia Page - 08/19/2023 3:16 PM EDT Please call Loli at [facility] when ready to schedule. [phone] [facility]06-04-2024 Telephone encounter Note* Telephone Encounter - Elie Valencia Page - 08/19/2023 2:13 PM EDT DaughterEloisa called stating that [facility] will be calling to schedule Renflexis in [place]. Dr. Monterroso ordering. Please review and advise. [facility]06-04-2024 History of Present illness Narrative* Cassidy Arreola APRN.INCOME TAX PREPARER - 08/19/2023 11:29 AM EDT Chief Complaint [...] for both; strong for ER, moderate for GA). HER-2 3+. Had been using Estrace cream [...] Wire Localization: Wire absent Lymph Node Sampling: [place] lymph node(s) Tumor size: Size of largest [...] tamoxifen therapy. S/p underwent hysteroscopy D&C at [facility] on 08/23/[address] Hebert. Path. Benign. Pt. resides at [facility]. Pt. here today with her [...] - 4.00 k/uL 0.84 (L) 0.67 (L) Paulding% % 13.6 12.3 Abs Paulding <0.87 k/uL 1.41 (H) 1.02 (H) Eosin% [...] ICD10: C50.311, Z17.0 (primary diagnosis) pT1b pN0(sln) ER/GA positive, HER2 positive invasive ductal carcinoma the [...] as necessary for today's visit. Cassidy Arreola APRN.INCOME TAX PREPARER documented in this encounterKindred Healthcare06-04-2024 History of Present illness Narrative* Vania Horan RN - 08/19/2023 7:21 AM EDT Patient is here for IVAD port flush/blood draw per [facility] protocol. IVAD is located in right upper [...] Patient tolerated procedure well. documented in this encounterKindred Healthcare05-10-2024 Telephone encounter Note * Telephone Encounter - Inessa Arnold RN - 07/25/2023 4:30 PM EDT Called Susana Bettencourt and discussed taper schedule from Dr. Monterroso of dropping by 1mg every month. Currently on 10mg Prednisone. MilagrosDimple Bettencourt expressed understanding of taper schedule. [facility]05-10-2024 Miscellaneous Notes* Telephone Encounter - Inessa Arnold RN - 07/25/2023 4:30 PM EDT Called [facility] and discussed taper schedule from Dr. Monterroso of dropping by 1mg every month. Currently on 10mg Prednisone. Sonia Bettencourt expressed understanding of taper schedule. * Telephone Encounter - Mary Beth Trevino - 07/25/2023 12:39 PM EDT Milagros from [facility] [employer] calling they need clarification on the taper of Prednisone. Please call [phone] and ask for Susana Bettencourt documented in this encounterKindred Healthcare05-10-2024 Telephone encounter Note * Telephone Encounter - Mary Beth Trevino - 07/25/2023 12:39 PM EDT Milagros from [facility] calling they need clarification on the taper of Prednisone. Please call [phone] and ask for Susana Bettencourt [facility]04-30-2024 History of Present illness Narrative* Vikash Sylvester APRN.INCOME TAX PREPARER - 07/15/2023 2:30 PM EDT Female Pelvic [...] [facility] been prescribing estrogen cream. GFR normal. Urinary Incontinence: no Voiding Dysfunction: no Urinary Frequency: yes, takes lasix Urinary Urgency: yes, sometimes Prolapse Symptoms: no Defecatory Dysfunction: no Fecal Incontinence: no Abnormal Bleeding: no Pain: no Abnormal Vaginal Discharge: no I have confirmed and edited as necessary, [facility] others. Vikash Sylvester APRN.INCOME TAX PREPARER Cigarette Maker offered: Patient declines. OBJECTIVE: BP 122/84 Ht [...] VV next year since they live in [place]. Medical Decision Making: Problems: Moderate: 2+ stable chronic illnesses Data: Unique test result(s) reviewed: 1 Risk: Moderate: Drug management Medical Decision Making Level: 4 - Moderate Vikash Sylvester APRN.INCOME TAX PREPARER documented in this encounterKindred Healthcare04-19-2024 History of Present illness Narrative* Margy Sarabia - 07/04/2023 3:42 PM EDT [facility] received prescription(s) for Humira from Dr. Monterroso's office. Benefits investigation was conducted, indicating that a prior authorization is required by patient's insurance plan with [employer] Encounter will be updated once prior authorization has been submitted by [facility]. Margy Sarabia CPhT, Inflammatory/Allergy [facility] [phone] * Margy Sarabia - 07/04/2023 3:42 PM EDT Images from the original note were not included. * Margy Sarabia - 07/04/2023 3:42 PM EDT [facility] received prescription(s) for Humira from [...] this time. Patient will be referred to [employer] Assistance Program. Note will be update once pt is contacted. Margy Sarabia CPhT, Inflammatory/Allergy [facility] [phone] documented in this encounterKindred Healthcare04-19-2024 History of Present illness Narrative* Thalia Monterroso [...] 2012 (elevated ESR and CRP at the [facility]). She started to develop symptoms of [...] Take 1 tablet by mouth once daily. kegmabp-vxbtbutbt-uvatzvw D3 500 mg-5 mcg (200 unit) per [...] months Thalia Monterroso MD documented in this encounterKindred Healthcare04-16-2024 Miscellaneous Notes* Telephone Encounter - Bayron Spears RN - 07/01/2023 4:00 PM EDT Singed order for compression stockings place in postal mail addressed to: [facility] medical records [address] [place] [id number] documented in this encounterKindred Healthcare04-15-2024 History of Present illness Narrative* Stella Preciado PA-C - 06/30/2023 4:00 PM EDTAssociated Order(s): Large Joint Arthro/Inj: R knee joint Post-Procedure Diagnose(s): Primary osteoarthritis of both knees Large Joint Arthro/Inj: R knee joint Informed Consent Consent Obtained: Verbal [place] Protocol A moment to CARE was completed. [...] right knee cortisone injection. documented in this encounterKindred Healthcare04-15-2024 Instructions* Patient Instructions* Stella Preciado PA-C - 06/30/2023 3:42 PM EDT Right knee injection today. No restrictions, follow up in 91 days if needed. documented in this encounterKindred Healthcare04-03-2024 History of Present illness Narrative* Stella Preciado PA-C - 06/18/2023 9:16 AM EDTAssociated Order(s): Large Joint Arthro/Inj: L knee joint Post-Procedure Diagnose(s): Primary osteoarthritis of both knees; Chronic pain of left knee Stella Preciado PA-C Department of Orthopaedics [facility] [address] [facility] [address] Dept: [phone] Dept June 18, 2023 CHIEF COMPLAINT: Established [...] knee joint Informed Consent Consent Obtained: Verbal [place] Protocol A moment to CARE was completed. [...] Take 1 tablet by mouth once daily. prebfkw-btvjevnly-zbcpddn D3 500 mg-5 mcg (200 unit) per [...] [Lisinopril] This note was partially generated using GillBus voice recognition system, and there may be [...] into the left knee. documented in this encounterKindred Healthcare04-03-2024 Instructions* Patient Instructions* Stella Preciado PA-C - 06/18/2023 8:54 AM EDT Left knee injection today, follow up in 1-2 weeks for right knee injection. documented in this encounterKindred Healthcare04-03-2024 History of Present illness Narrative* Page Ruiz [...] PATIENT PRESENTS WITH AN IMPLANTABLE OR ATTACHED IT BUSINESS PROCESS ARCHITECT: No RADIOLOGY DEPARTMENT: General X-ray: Exam(s) Completed: Lower Extremity X- Ray(s): Knee, AP / Lat / Tunne / Merchant Bilateral and Wt. Bearing PERIPHERAL IV DATA: Not applicable SIGNED BY: RT Nithin(R) June 18, 2023 11:10 AM documented in this encounterKindred Healthcare04-01-2024 History of Present illness Narrative* Cecilio Ibarra DO - 06/16/2023 1:57 PM EDT Images from the original note were not included. [facility] [place] [facility] Kolb Department of Cardiovascular Medicine SECTION OF CLINICAL CARDIOLOGY OUTPATIENT VISIT DATE June 16, 2023 OUTPATIENT VISIT TYPE ESTABLISHED Patient Name: Christian Landrum : 1935 PRIMARY CARE PHYSICIAN: Galina Iraheta MD [facility] 09/05/22 CHIEF COMPLAINT: Patient presents with: Follow [...] risk and aware of this off anticoagulation. [id number] score 4 or approximately 7% annual stroke [...] SINUS RHYTHM Confirmed by OBDULIA BERMEO DO ([id number]) on 10/08/2022 3:19:16 PM LABS: Sodium (mmol/L) [...] [Cephalexin], Naprosyn [Naproxen], Desmond Inhibitors, Adhesives [Other], [id number] [Diclofenac-Misoprostol], Blephamide [Sulfacetamide- Prednisolone], Ditropan [Oxybutynin], Flagyl[Metronidazole [...] benign mass on liver PMR (polymyalgia rheumatica) ([facility]) 2012 Pure hypercholesterolemia Snoring Squamous cell cancer [...] Take 1 tablet by mouth once daily. lljrkvi-ktvxqpyoi-dqhxhwn D3 500 mg-5 mcg (200 unit) per [...] medications for this visit. documented in this encounterKindred Healthcare03-22-2024 History of Present illness Narrative* Hu Moreland [...] PATIENT PRESENTS WITH AN IMPLANTABLE OR ATTACHED IT BUSINESS PROCESS ARCHITECT: No RADIOLOGY DEPARTMENT: Bone Density PERIPHERAL IV DATA: Not applicable SIGNED BY: RT Dwayne(R) June 06, 2023 2:13 PM documented in this encounterKindred Healthcare02-14-2024 Miscellaneous Notes* Telephone Encounter - Nicole Childs [...] Maximus said we can fax response to [phone] * Telephone Encounter - Nery Olsen - 04/28/2023 1:04 PM EST Maximus from [facility] called to advise that pt's pain has gotten worse while on the prednisone taper. Advised that dosage is now at 12.5 and pt is in a lot of pain. Callback: [phone] DHEERAJ oPnce documented in this encounterKindred Healthcare02-09-2024 Miscellaneous Notes* Telephone Encounter - Nicole Childs [...] 04/24/2023 12:39 PM EST Maximus BRUNO from [facility] called. Patient was complaining of all [...] response and or call documented in this encounterKindred Healthcare11-28-2023 History of Present illness Narrative* Cassidy Arreola APRN.INCOME TAX PREPARER - 02/11/2023 10:05 AM EST Chief Complaint [...] for both; strong for ER, moderate for GA). HER-2 3+. Had been using Estrace cream [...] Wire Localization: Wire absent Lymph Node Sampling: [place] lymph node(s) Tumor size: Size of largest [...] tamoxifen therapy. S/p underwent hysteroscopy D&C at [facility] on 08/23/[address] Hebert. Path. Benign. Pt. resides at [facility]. Pt. here today with her [...] 1.00 - 4.00 k/uL 1.57 1.06 1.54 Paulding% % 11.2 11.2 9.7 Abs Paulding <0.87 k/uL 0.68 0.59 0.68 Eosin% % [...] V10.3, ICD10: Z85.3 (primary diagnosis) pT1b pN0(sln) ER/GA positive, HER2 positive invasive ductal carcinoma the [...] as necessary for today's visit. Cassidy Arreola APRN.INCOME TAX PREPARER documented in this encounterKindred Healthcare10-05-2023 Miscellaneous Notes* Telephone Encounter - Sheryl Mercado RN - 12/19/2022 2:42 PM EDT Faxed patient's last office visit note to facility, [facility], per MM. documented in this encounterKindred Healthcare10-03-2023 History of Present illness Narrative* Vania Horan RN - 12/17/2022 7:27 AM EDT Patient is here for IVAD port flush per [facility] protocol. IVAD is located in right upper chest. Site cleansed with Chloraprep IVAD accessed with a #20 gauge 3/4" non-coring Gripper needle Blood Return: Good Flushed with: 20 ml Normal Saline and 5 ml Heparin Lock Flush Non-coring needle removed. Paper tape applied to puncture site. Port site negative for redness, edema or tenderness. Patient tolerated procedure well. documented in this encounterKindred Healthcare09-29-2023 Instructions* Patient Instructions* Juliet Gaffney APRN.CNP - 12/13/2022 2:50 PM EDT PLAN AND RECOMMENDATIONS: No change in medications Follow up Dr Ibarra in 6 months. CONTACT INFORMATION: Juliet Gaffney APRN.CNP Cardiology Nurse Practitioner Section of Count Includes [facility] Cardiology [facility] Dept of Cardiovascular Medicine [facility] [place] [address] Office Office documented in this encounterKindred Healthcare09-29-2023 History of Present illness Narrative* Juliet Gaffney APRN.CNP - 12/13/2022 2:45 PM EDT Images from the original note were not included. [facility] [place] [facility] Miguel [facility] Department of Cardiovascular Medicine SECTION OF CLINICAL CARDIOLOGY OUTPATIENT VISIT DATE December 13, 2022 OUTPATIENT VISIT TYPE ESTABLISHED PRIMARY CARE PHYSICIAN: Galina Iraheta [address] [place] [address] REFERRING PHYSICIAN: Jerrica Beltran [address] [place] [address] CHIEF COMPLAINT: Follow Up (Mcnairy denies cardiac concerns/Daughter, Eloisa, concerned about Lasix [...] if standing for long time, like at religious but resolves quickly Has sleep apnea with new mask and now sleeps better. She overall feels better than she has in a long time. Does water therapy at her assisted living facility[facility] She denies shortness of breath, chest pain, [...] benign mass on liver PMR (polymyalgia rheumatica) ([facility]) 2012 Pure hypercholesterolemia Snoring Squamous cell cancer [...] Take 1 tablet by mouth once daily. rqbbpxd-zvpsuyeqc-wpkywrg D3 500 mg-5 mcg (200 unit) per [...] SINUS RHYTHM Confirmed by OBDULIA BERMEO DO ([id number]) on 10/08/2022 3:19:16 PM There were no [...] Cardiology Nurse Practitioner Section of Regional Cardiology [facility] Dept of Cardiovascular Medicine [facility] [place] [address] [place] [address] Office Office documented in this encounterKindred Healthcare09-12-2023 Miscellaneous Notes* Telephone Encounter - Sheryl Mercado [...] contact is Eloisa Moser. documented in this encounterKindred Healthcare09-11-2023 Instructions* Patient Instructions* Stella Preciado PA-C - [...] feels comfortable doing so. documented in this encounterKindred Healthcare09-11-2023 History of Present illness Narrative* Page Ruiz [...] 25, 2022 2:30 PM documented in this encounterKindred Healthcare09-11-2023 History of Present illness Narrative* Stella Preciado PA-C - 11/25/2022 2:05 PM EDTAssociated Order(s): Large Joint Arthro/Inj: bilateral knee joints Post-Procedure Diagnose(s): Primary osteoarthritis of both knees Large Joint Arthro/Inj: bilateral knee joints Informed Consent Consent Obtained: Verbal [place] Protocol A moment to CARE was completed. [...] Amount of Time: (Ongoing) documented in this encounterKindred Healthcare08-31-2023 Miscellaneous Notes* Telephone Encounter - Juliet Coombs - 11/14/2022 5:44 PM EDT Left VM on patient's home and mobile lines cancelling the patient's 12/11/22 cardiology appointment.Instructed the patient to call the office to reschedule. My Chart message sent. documented in this encounterKindred Healthcare07-11-2023 History of Present illness Narrative* Andria Joyner RN - 09/24/2022 2:35 PM EDT Patient is here for IVAD port flush per [facility] protocol. IVAD is located in right upper [...] well. Andria Joyner RN documented in this encounterKindred Healthcare07-07-2023 Miscellaneous Notes* Telephone Encounter - Ana Cristina Melo RN - 09/20/2022 8:44 AM EDT Reviewed labs with Dr. Ibarra. Recommended pt to hold Eliquis. Would like pt to see Dr. Shields to discuss Watchmen Device. Reviewed recommendations to KASANDRA Amin an Nurse Milagros at [facility]. Eloisa stated she will review Watchman recommendations to pt. Will contact us if she decided to pursue. * Telephone Encounter - Ana Cristina Melo RN - 09/20/2022 8:17 AM EDT Jie from [facility] ([phone]) in reg to Ms Ashley Landrum. CBC [...] risk and aware of this off anticoagulation. [id number]-ORLr score 4 or approximately 7% annual stroke risk and has-bled score is 2 or 4% bleeding risk - Currently on metoprolol - patient and daughter wish to trial DOAC now Iron deficiency anemia Doing well with iron infusions with stable Hgb documented in this encounterKindred Healthcare06-22-2023 History of Present illness Narrative* Cecilio Ibarra DO - 09/05/2022 9:12 AM EDT Images from the original note were not included. [facility] [place] [facility] Miguel Kolb Department of Cardiovascular Medicine SECTION OF CLINICAL CARDIOLOGY OUTPATIENT VISIT DATE April 09, 2022 OUTPATIENT VISIT TYPE ESTABLISHED Patient Name: Christian Landrum : 1935 PRIMARY CARE PHYSICIAN: Galina Iraheta MD [facility] 09/05/21 CHIEF COMPLAINT: No chief [...] risk and aware of this off anticoagulation. IZX4VR9-ULSh score 4 or approximately 7% annual stroke [...] [Cephalexin], Naprosyn [Naproxen], Desmond Inhibitors, Adhesives [Other], [id number] [Diclofenac-Misoprostol], Blephamide [Sulfacetamide- Prednisolone], Ditropan [Oxybutynin], Flagyl[Metronidazole [...] benign mass on liver PMR (polymyalgia rheumatica) ([facility]) 2012 Pure hypercholesterolemia Snoring Squamous cell cancer [...] Take 1 tablet by mouth once daily. ixvzxyb-oktrkeqed-pcteuek D3 500 mg-5 mcg (200 unit) per [...] medications for this visit. documented in this encounterKindred Healthcare06-13-2023 History of Present illness Narrative* Cassidy Arreola APRN.INCOME TAX PREPARER - 08/27/2022 11:54 AM EDT Chief Complaint [...] for both; strong for ER, moderate for GA). HER-2 3+. Had been using Estrace cream [...] Wire Localization: Wire absent Lymph Node Sampling: [place] lymph node(s) Tumor size: Size of largest [...] tamoxifen therapy. S/p underwent hysteroscopy D&C at [facility] on 08/23/[address] Hebert. Path. Benign. Pt. now resides at [facility]. Pt. here today with her [...] Lymph 1.00 - 4.00 k/uL 1.35 1.57 Paulding% % 11.0 11.2 Abs [place] <0.87 k/uL 0.54 0.68 Eosin% % 1.6 [...] V10.3, ICD10: Z85.3 (primary diagnosis) pT1b pN0(sln) ER/GA positive, HER2 positive invasive ductal carcinoma the [...] visit. Cassidy Arreola APRN.CNP documented in this encounterKindred Healthcare03-28-2023 Miscellaneous Notes* Telephone Encounter - Sadie Lin [...] you. Cassidy Arreola APRN.CNP documented in this encounterKindred Healthcare03-22-2023 History of Present illness Narrative* Page Ruiz RT([place]) - 06/05/2022 11:40 AM EDT Radiology Service [...] 05, 2022 12:37 PM documented in this encounterKindred Healthcare03-22-2023 History of Present illness Narrative* Cassidy Arreola APRN.INCOME TAX PREPARER - 06/05/2022 10:51 AM EDT Chief Complaint [...] for both; strong for ER, moderate for GA). HER-2 3+. Had been using Estrace cream [...] Wire Localization: Wire absent Lymph Node Sampling: [place] lymph node(s) Tumor size: Size of largest [...] tamoxifen therapy. S/p underwent hysteroscopy D&C at [facility] on 08/23/[address] Hebert. Path. Benign. Pt. now resides at [facility]. Pt. here today with her [...] Skin:denies rashes/lesions Heme:denies bleeding since visit with DISABILITY COUNSELOR The ROS is otherwise negative. Past medical [...] V10.3, ICD10: Z85.3 (primary diagnosis) pT1b pN0(sln) ER/GA positive, HER2 positive invasive ductal carcinoma the [...] visit. Cassidy Arreola APRN.INGE documented in this encounterKindred Healthcare03-16-2023 Miscellaneous Notes* Telephone Encounter - Meredith Alonzo - 05/30/2022 3:07 PM EDT Spoke with Jie at [facility] and she stated that appointments need made with the patient's family as they are the ones that transport the patient. Spoke with patient's daughter, advising below, and scheduled May follow up as directed. Meredith Alonzo * Telephone Encounter - Lisa Morales LPN - 05/30/2022 1:42 PM EDT Left detailed message for Herminia with information below. I attempted to contact [facility], , they were unable to hear on their line. Unable to speak to anyone. I faxed this information to [phone]. Will attempt to contact again later. PSS- please contact [facility] to schedule as directed below. Lisa Morales LPN * Telephone Encounter - Cassidy Arreola APRN.CNP - 05/30/2022 1:24 PM EDT Noted. Monitor R lateral chest. If no improvement then OV in one week. OV/CBC/iron studies early July. Thank you. Cassidy Arreola APRN.CNP * Telephone Encounter - Lisa Morales LPN [...] - 05/30/2022 12:34 PM EDT Herminia from [facility] called stating patient is having right side pain, rib area. She is asking if imaging orders could be sent or if patient needs to be seen . She states concern due to hx breast cancer. Please call Herminia at [phone] documented in this encounterKindred Healthcare01-25-2023 Miscellaneous Notes* Telephone Encounter - Starla Son [...] today. Starla Son RN documented in this encounterKindred Healthcare01-24-2023 Instructions* Patient Instructions* Taty Perez APRN.INCOME TAX PREPARER - 04/09/2022 3:08 PM EST We reviewed [...] day - please fax BP readings to [phone] I would like to know if your [...] sodium diet is recommended documented in this encounterKindred Healthcare01-24-2023 History of Present illness Narrative* Taty Perez APRN.INGE - 04/09/2022 2:44 PM EST Images from the original note were not included. [facility] [place] [facility] Miguel Kolb Department of Cardiovascular Medicine [...] which included preparing to see the patient, upsb-tv-odbk patient care, completing clinical documentation, performing a medically appropriate examination, counseling and educating the patient/family/caregiver, ordering medications, tests, or p rocedures, and communicating results to the patient/family/caregiver. Thank you very much for allowing me to assist in the care of Christian Landrum. Please do not hesitate to contact me if you have questions or concerns. Taty Perez APRN.[facility] Cardiology Nurse Practitioner Section of Regional Cardiology [facility] Dept of Cardiovascular Medicine [facility] [place] [address] [place] [address] Office Office April 09, 2022 2:44 PM This note was partially generated using GillBus voice recognition system and may contain errors [...] [Cephalexin], Naprosyn [Naproxen], Desmond Inhibitors, Adhesives [Other], [id number] [Diclofenac-Misoprostol], Blephamide [Sulfacetamide- Prednisolone], Ditropan [Oxybutynin], Flagyl[Metronidazole [...] and ROS obtained by others. Taty Perez APRN.INCOME TAX PREPARER CURRENT MEDICATIONS: Current Outpatient Medications Medication Sig [...] Take 1 tablet by mouth once daily. llajrdj-iemabssmi-praqdke D3 500 mg-5 mcg (200 unit) per tablet Take 1 tablet by mouth once daily. omeprazole (PRILOSEC) 40 mg capsule Take 1 capsule by mouth once daily. gabapentin (NEURONTIN) 600 mg tablet Take 0.5 tablets by mouth once daily. (Patient taking differently: Take 300 mg by mouth daily at bedtime.) No current facility-administered medications for this visit. documented in this encounterKindred Healthcare01-23-2023 History of Present illness Narrative* Nata Morrison RN - 04/08/2022 11:07 AM EST documented in this encounterKindred Healthcare01-09-2023 Miscellaneous Notes* Telephone Encounter - DHEERAJ Wood [...] transfusion on 03/05. A CBC done at [facility] on 03/07 Showed that the [...] infusion. Sal Bonilla DO documented in this encounterKindred Healthcare01-06-2023 Miscellaneous Notes* Telephone Encounter - Dayami Pinto [...] time. Lisa Morales LPN documented in this encounterKindred Healthcare12-27-2022 Miscellaneous Notes* Telephone Encounter - Dayami Pinto [...] 03/12/2022 9:57 AM EST Left message on [employer] phone to call me back to review [...] was restarted on this medication at the retirement. Her iron levels were low when measured [...] to schedule. Meredith Alonzo documented in this encounterKindred Healthcare12-21-2022 History of Present illness Narrative* Cassidy Arreola APRN.INCOME TAX PREPARER - 03/06/2022 2:26 PM EST Chief Complaint [...] for both; strong for ER, moderate for GA). HER-2 3+. Had been using Estrace cream [...] Wire Localization: Wire absent Lymph Node Sampling: Sharon lymph node(s) Tumor size: Size of largest [...] tamoxifen therapy. S/p underwent hysteroscopy D&C at [facility] on 08/23/[address] Hebert. Path. Benign. Pt. now resides at [facility]. Labs have been monitored there. [...] Skin:denies rashes/lesions Heme:denies bleeding since visit with DISABILITY COUNSELOR The ROS is otherwise negative. Past medical [...] 174.3, V86.0, ICD10: C50.311, Z17.0 pT1b pN0(sln) ER/GA positive, HER2 positive invasive ductal carcinoma the [...] visit. Cassidy Arreola APRN.INGE documented in this encounterKindred Healthcare11-22-2022 History of Present illness Narrative* Vania Horan RN - 02/05/2022 7:32 AM EST Patient is here for IVAD port flush per [facility] protocol. IVAD is located in right upper chest. Site cleansed with Chloraprep IVAD accessed with a #20 gauge 3/4" non-coring Gripper needle Blood Return: Good Flushed with: 20 ml Normal Saline and 5 ml Heparin Lock Flush Non-coring needle removed. Paper tape applied to puncture site. Port site negative for redness, edema or tenderness. Patient tolerated procedure well. documented in this encounterKindred Healthcare11-07-2022 History of Present illness Narrative* Stella Preciado PA-C - 01/21/2022 2:58 PM ESTAssociated Order(s): Large Joint Arthro/Inj: R knee joint Post-Procedure Diagnose(s): Primary osteoarthritis of both knees; Chronic pain of right knee Stella Preciado PA-C Department of Orthopaedics Orthopaedics [address] [facility] [address] Dept: [phone] Dept January 21, 2022 CHIEF COMPLAINT: Established [...] knee joint Informed Consent Consent Obtained: Verbal [place] Protocol A moment to CARE was completed. [...] knee osteoarthritis with interval progression as described. Transportation Engineer: GRANT Transcribe Date/Time: Jul 09 2021 7:03P [...] Take 1 tablet by mouth once daily. fjtkuxe-zqfnwwqjn-eytfhwl D3 500 mg-5 mcg (200 unit) per [...] anxiety) This note was partially generated using Gill[employer] voice recognition system, and there may be [...] Eloisa with patient today. documented in this encounterKindred Healthcare10-19-2022 NoteHNO ID: [id number] Author: Basilia Hernández MD Service: ? Author [...] stool Pain: no Abnormal Vaginal Discharge: no DISABILITY COUNSELOR HISTORY: Last Pap: Date:04/18/20 NIL; Last Mammogram: [...] Making Level: 4 - Moderate Basilia Hernández, [facility]10-19-2022 Instructions* Patient Instructions* Basilia Hernández MD - 01/02/2022 2:08 PM EDT Follow up with Vikash ySlvester NP in 6 months or sooner as needed documented in this encounterKindred Healthcare10-19-2022 History of Present illness Narrative* Basilia Hernández [...] stool Pain: no Abnormal Vaginal Discharge: no DISABILITY COUNSELOR HISTORY: Last Pap: Date:04/18/20 NIL; Last Mammogram: [...] Moderate Basilia Hernández MD documented in this encounterKindred Healthcare10-11-2022 Miscellaneous Notes* Telephone Encounter - Jayde Link RN - 12/25/2021 10:47 AM EDT Galina Matthew PARQUET FLOOR LAYER'S HELPER called regarding patient's Coumadin, has been having anemia and bloody stool. Asking if Coumadin can be held/stopped temporarily. Coumadin has been ordered by PCP, not cardiology office. Spoke with PARQUET FLOOR LAYER'S HELPER, explained Dr. Ibarra was not managing patient's Coumadin. PARQUET FLOOR LAYER'S HELPER stated patient is no longer seeing Dr. Iraheta and has new PCP; requesting orders from Dr. Ibarra. Advised PARQUET FLOOR LAYER'S HELPER to follow up with new PCP/physician managing Coumadin. Per Dr. Ibarra's notes, anemia has been chronic issue. documented in this encounterKindred Healthcare08-30-2022 History of Present illness Narrative* Jerrica Bhat RN - 11/13/2021 9:57 AM EDT Patient is here for IVAD port flush per [facility] protocol. IVAD is located in right upper chest. Site cleansed with Chloraprep IVAD accessed with a #20 gauge 3/4" non-coring Gripper needle Blood Return: Good Flushed with: 20 ml Normal Saline Non-coring needle removed. Paper tape applied to puncture site. Port site negative for redness, edema or tenderness. Patient tolerated procedure well. documented in this encounterKindred Healthcare08-22-2022 Miscellaneous Notes* Telephone Encounter - Galina Iraheta MD - 11/05/2021 5:17 PM EDT noted * Telephone Encounter - Maria A Camacho (Therapeutic Recreation Specialist) - 11/05/2021 9:35 AM EDT PATIENT CALL [...] re-referred, if deemed appropriate. Maria A Camacho; film replacement orderer (Therapeutic Recreation Specialist) Pharmacy Anticoagulation Clinic documented in this encounterKindred Healthcare08-19-2022 Miscellaneous Notes* Telephone Encounter - An Ta APRN.CNP - 11/02/2021 2:49 PM EDT Noted. An Ta APRN.CNP * Telephone Encounter - Nata Lemon LPN - 11/02/2021 1:12 PM EDT Patient daughter Gia returned call and said her mother is at [facility] and Dr Alejo Salcido is taking over [...] EDT Received call from Maximus MERCADO with [facility]. Patient was admitted to facility today. Maximus asking for clarification on when patient should resume Coumadin and dosage as well as when next INR needs to be drawn. Maximus requests orders be faxed to [phone] or called to [phone]. Maximus requested updated medication list be faxed. Faxed per request. Please review and advise, Una Garcia RN * Telephone Encounter - Nury Andres RPh - 10/25/2021 12:54 PM EDT Spoke to patient. She is staying with her daughter. She is currently off warfarin and waiting for call back from Dr. Iraheta with instructions on when toresume. * Telephone Encounter - Nury Andres [facility] - 10/23/2021 4:30 PM EDT Called patient and left VM to call PAC at [phone]. Is she is Assisted Living facility? documented in this encounterKindred Healthcare08-04-2022 Miscellaneous Notes* Telephone Encounter - Yoly Clayton Ma - 10/18/2021 3:47 PM EDT Patient currently being seen in [facility] ER. * Telephone Encounter - An Ta APRN.CNP - 10/18/2021 3:39 PM EDT Please get update from daughter on how patient is feeling, and if they heard back from [facility]. Thank you An Ta APRN.INCOME TAX PREPARER * Telephone Encounter - Nata Lemon LPN - 10/18/2021 9:00 AM EDT Patient daughter Eloisa calling mother woke up with fever 100.5 this morning. She was having body aches yesterday. She is scheduled for blood transfusion today at [facility] her hemoglobin is 6.5 and daughter has called transfusion center at [facility] and left message. Eloisa did home COVID test and mother was positive. documented in this encounterKindred Healthcare08-03-2022 Miscellaneous Notes* Telephone Encounter - Jerrica Rothman [facility] - 10/17/2021 3:58 PM EDT Christian Landrum [...] Hgb, she is getting a transfusion at [facility]. She said the patient will be at an assisted living starting on 10/22. If she starts back on warfarin then they may manage it. Eloisa said that pt's warfarin is still on hold. She asked that we check back next week on her status. Jerrica Rothman PharmD Pharmacy Anticoagulation Clinic * Telephone Encounter - Jerirca Rothman RPh - 10/17/2021 2:20 PM EDT [...] type and cross done now. Maria A Khanna, RN * Telephone Encounter - Nury Guerin LPN - 10/17/2021 11:48 AM EDT Spoke with patient about instructions and left message with daughter about instructions for blood transfusion. Patient is wanting to know instructions for coumadin since it is 2.1 now? Blood tranfusion orders faxed to [facility] Please review and advise. Nury Guerin LPN * Telephone Encounter - Jerrica Rothman [facility] - 10/17/2021 9:12 AM EDT INR yesterday (10/16) was 2.1 via Biotel. * Telephone Encounter - Galina Iraheta MD - 10/16/2021 6:32 PM EDT We will have to transfuse 2 units of RBcs to patient Please get the forms for [facility] and inform patient of the same * Telephone Encounter - Tesha Arias RP - 10/16/2021 6:01 PM EDT Called and stp- per Dr. Iraheta pt to hold off on warfarin. Pt's Hgb was 6.5 today, will reach out to Dr. Iraheta for clarification on resuming anticoag Tesha Arias, PharmD documented in this encounterKindred Healthcare08-03-2022 Miscellaneous Notes* Telephone Encounter - Ramila Castro LPN - 10/17/2021 2:00 PM EDT Soraya with [facility] Marge called and states pt is coming in for a cross and type. Identified pt withname and date of . Requested a copy of last H & H, faxed CBC to [phone]. Ramila Castro LPN documented in this encounterKindred Healthcare08-01-2022 Miscellaneous Notes* Telephone Encounter - Nury Guerin [...] this medication. Advice. 4. Moving pt to [facility] 10-22-21. Please advise daughter on cell phone or send a [facility] message Gia Ford ([facility])on teams. documented in this encounterKindred Healthcare08-01-2022 Miscellaneous Notes* Telephone Encounter - Vito Jay, [facility] - 10/15/2021 11:47 AM EDT [facility] Anticoagulation Episode Summary Anticoagulation Care Providers Provider Role Specialty Phone number Galina Iraheta MD [facility] Internal Medicine [phone] Christian Landrum is a 86 year old [...] has been bleeding off and on since - advised patient to call PCP or [...] Pharmacy Anticoagulation Clinic Pharmacy Anticoagulation Clinic Pager: [phone]. documented in this encounterKindred Healthcare07-28-2022 History of Present illness Narrative* Jeancarlos Hooker [...] removed with a cold snare. D&C at [place] a month or two ago for uterine [...] benign mass on liver PMR (polymyalgia rheumatica) ([facility]) 2012 Pure hypercholesterolemia Snoring Squamous cell cancer [...] MD October 11, 2021 documented in this encounterKindred Healthcare07-13-2022 NoteHNO ID: [id number] Author: Basilia Hernández MD Service: ? Author [...] UTIs, used to see Dr. Burris at [facility]. Prior colovesical fistula, s/p sigmoid colectomy. Using vaginal estrogen pea sized amount 3x/week, pt's oncologist is aware (h/o breast cancer). Urine cultures: 08/30/21 E coli ESBL S nitrofurantoin 08/12/21 E coli ESBL S nitrofurantoin 08/11/21 E coli ESBL S nitrofurantoin 07/06/21 E coli easton sens 06/17/21 no growth 05/22/21 no growth 1/11/22 Citrobacter koseri R amp Component Latest Ref Rng AND Units 08/13/2021 Creatinine 0.58 - 0.96 mg/dL 0.74 Component Latest Ref Rng AND Units 08/13/2021 eGFR >=60 mL/min/1.73m? 79 Medical and Symptom History: DISABILITY COUNSELOR HISTORY: Last Pap: Date:04/18/20 NIL; Last Mammogram: [...] DIAGNOSTIC 01/09/2021 - HYSTEROSCOPY (more content not included)...[facility] 09-26-2021 Instructions* Patient Instructions* Basilia Hernández MD - 09/26/2021 2:57 PM EDT Follow up with Dr. Hernández in 3 months Schedule appointment with infectious disease Start Hiprex Continue vaginal estrogen Consider trying D-mannose Your doctor has placed a standing order for urine culture. When you have symptoms of a urine infection, go to a [facility] lab facility and submit a urine specimen [...] ask any laboratory employee. documented in this encounterKindred Healthcare07-13-2022 History of Present illness Narrative* Basilia Hernández [...] UTIs, used to see Dr. Burris at [facility]. Prior colovesical fistula, s/p sigmoid colectomy. [...] >=60 mL/min/1.73m 79 Medical and Symptom History: DISABILITY COUNSELOR HISTORY: Last Pap: Date:04/18/20 NIL; Last Mammogram: [...] benign mass on liver PMR (polymyalgia rheumatica) ([facility]) 2012 Pure hypercholesterolemia Snoring Squamous cell cancer [...] tablet by mouth twice daily with meals. uihdjmi-gclcaoxmk-lzjxhjh D3 500 mg-5 mcg (200 unit) per [...] ROS obtained by others. Basilia Hernández MD Cigarette Maker offered: Patient accepts, visit chaperoned by Jane [...] Post Wall - Normal support Cervix / [place] - Normal support POP-Q: Prolapse Noted: No [...] mail. Basilia Hernández MD documented in this encounterKindred Healthcare07-06-2022 Miscellaneous Notes* Telephone Encounter - Jerrica Rothman RPh - 09/19/2021 11:03 AM EDT [employer] message sent for therapeutic INR. documented in this encounterKindred Healthcare07-05-2022 History of Present illness Narrative* Cassidy Arreola APRN.INCOME TAX PREPARER - 09/18/2021 9:29 AM EDT Chief Complaint [...] for both; strong for ER, moderate for GA). HER-2 3+. Had been using Estrace cream [...] Wire Localization: Wire absent Lymph Node Sampling: Sharon lymph node(s) Tumor size: Size of largest [...] Dr. Das. She was then admitted to [facility] for weakness end of June. Admitted to [place] for UTI end of July. During that time her . S/p underwent hysteroscopy D&C at [facility] on 08/23/[address] Hebert. Path. Benign. 09/11/21-vaginal bleeding was seen by Dr. Hebert. Pt. participating in PT. Appetite:"I've been eating. My sister has been here from [place]." Energy level:"I sleep a lot." Denies fevers. [...] Skin:denies rashes/lesions Heme:denies bleeding since visit with DISABILITY COUNSELOR The ROS is otherwise negative. Past medical [...] 174.3, V86.0, ICD10: C50.311, Z17.0 pT1b pN0(sln) ER/GA positive, HER2 positive invasive ductal carcinoma the [...] as necessary for today's visit. Cassidy Arreola APRN.INCOME TAX PREPARER documented in this encounterKindred Healthcare07-05-2022 Nurse Note* Sadie Lin LPN - 09/18/2021 9:17 AM EDT Est. Pt. 6 month f/u Sadie Lin LPN documented in this encounterKindred Healthcare06-29-2022 Miscellaneous Notes* Telephone Encounter - Jerrica Rothman [facility] - 09/12/2021 11:32 AM EDT Stp - reviewed Dr. King's note from yesterday's OV. Pt reports no further issues - bleeding concerns. She resumed yesterday taking 1mg - 09/11. Advised her to continue her current dose and retest next week. Jerrica Rothman PharmD * Telephone Encounter - Maria A Camacho (AeroDron) - 09/12/2021 9:03 AM EDT PATIENT CALL Patient called call center regarding procedure. Patient called and left message after hours that stated she had her procedure on 09/11 and MD had advised her to resume her warfarin. Patient wanted to call and let [facility] know. Patient can be reached at [phone]. Maria A Camacho (AeroDron) * Telephone Encounter - Nury Andres [facility] - 09/11/2021 8:49 AM EDT Spoke to patient. She has not taken warfarin for past 5 days due to vaginal bleeding. She has a n appointment today with process engineering technician for cauterization. Advised she call PAC back after appt to let us know when she can resume warfarin. PT INR (no units) Date Value 06/06/2021 3.1 (biotel) 05/23/2021 2.5 (biotel) 03/15/2021 1.9 INR Home CoaguChek (no units) Date Value 09/10/2021 1.6 09/04/2021 2.0 08/22/2021 2.7 Nury Andres, Pharmacist * Telephone Encounter - Kevin Torres (Therapeutic Recreation Specialist) - 09/11/2021 8:42 AM EDT PATIENT CALL Judith called call center regarding results and left message after hours 09/10/2021 at 7:30pm. Patient also called and left message (transferred from PSS line) stating that she is having some bleedingissues and hasn't taken warfarin for at least five days. Please see yesterdays [facility]ST[facility]OUT [facility] encounter as well. Received call from [employer] Remote INR for patient. Patient tested on 09/10/2021 with out of range INR result of 1.6. PT INR (no units) Date Value 06/06/2021 3.1 (biotel) 05/23/2021 2.5 (biotel) 03/15/2021 1.9 INR Home CoaguChek (no units) Date Value 09/10/2021 1.6 09/04/2021 2.0 08/22/2021 2.7 Patient can be reached at [phone]. 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 pcroefz-vinguawnq-isjpzqm D3 500 mg-5 mcg (200 unit) per [...] GENERAL: pleasant, female in no apparent distress DISABILITY COUNSELOR: normal external genitalia, no blood present. Vagina [...] for EMERGENT procedures): No specimen collected. Jayde L Art, MD Procedure note- LEEP speculum placed, 2 [...] Making Jayde Hebert MD documented in this encounterKindred Healthcare06-27-2022 Miscellaneous Notes* Telephone Encounter - Juliet Cuevas [...] with daughter. She has an appointment with Uro/Junior Designer, Dr. Hernández on 09/26. Is this ok [...] urology. Jayde Hebert MD documented in this encounterKindred Healthcare06-24-2022 Miscellaneous Notes* Telephone Encounter - An Ta APRN.CNP - 09/07/2021 8:02 AM EDT Noted. Please let us know if they need anything else from us. Thank you An Ta APRN.INGE * Telephone Encounter - Maria A Khanna RN - 09/06/2021 12:55 PM EDT Sheryl with [facility] called and reports Pt is thinking of coming and living in their Assisted Living facilities. Sent Face sheet and last OV notes to fax # [phone]. documented in this encounterKindred Healthcare06-22-2022 History of Present illness Narrative* Cecilio Ibarra, - 09/05/2021 12:58 PM EDT Images from the original note were not included. [facility] Luis Miguel Kolb Department of Cardiovascular Medicine Established HPI: Christian Landrum is a 86 year old female with a history of paroxysmal AF (coumadin), rheumaticmitral valve regurgitation, HTN, HLD, STUART, breast cancer, PMR, and OA. She was last seen by me on 12/22/20 where a pharmacologic nuclear stress test was ordered and seen for telephone visit by IRON INSTALLER 04/19/21. MPI showed no evidence of ischemia or infarction. She was hospitalized in June at [facility] and in July 2021 in [place] both for UTI and fever. She continues [...] questions. Cecilio Ibarra, DO, FACC, FCCP, FACOI documented in this encounterKindred Healthcare06-22-2022 Miscellaneous Notes* Telephone Encounter - Jerrica Rothman RPh - 09/05/2021 9:09 AM EDT [employer] message sent for INR therapeutic range. documented in this encounterKindred Healthcare06-17-2022 Miscellaneous Notes* Telephone Encounter - Kamila Bentley LPN - 08/31/2021 7:49 AM EDT Please see pt's mychart message and pended order below. Please advise. Kamila Bentley LPN documented in this encounterKindred Healthcare06-16-2022 History of Present illness Narrative* Jayde Hebert MD - 08/30/2021 1:13 PM EDT hCristian Landrum is a 86 year old female [...] Menarche: 12; Age at 1st : 26; Junior Designer History LMP: Postmenopausal Age at Menarche: Age at First : Age at Menopause: Junior Designer History Comments: Sexual Activity: Not Currently; Male [...] Take 1 tablet by mouth once daily. gqcafcc-nmcrldkwx-dfuewtx D3 500 mg-5 mcg (200 unit) per [...] Making Jayde Hebert MD documented in this encounterKindred Healthcare06-14-2022 History of Present illness Narrative* Jayde Hebert [...] 50+ Menarche: 12; Age at 1st : Junior Designer History LMP: Postmenopausal Age at Menarche: Age at First : Age at Menopause: Junior Designer History Comments: Sexual Activity: Not Currently; Male [...] Take 1 tablet by mouth once daily. urmakfn-petculwzl-xoclcuk D3 500 mg-5 mcg (200 unit) per [...] external genitalia normal, normal Bartholin's glands, urethra, Montebello's glands, no vulvar lesions, good vaginal support, [...] Making Jayde Hebert MD documented in this encounterKindred Healthcare06-12-2022 History of Present illness Narrative* Jayde Hebert MD - 08/26/2021 3:21 PM EDT Patient underwent hysteroscopy D&C at [facility] on 08/23/2021 without complications. She was discharged home with routine instructions and follow-up. Pathology is pending. No discrete polyp visualized. Jayde Hebert MD documented in this encounterKindred Healthcare06-08-2022 Miscellaneous Notes* Telephone Encounter - Jerrica Rothman, [facility] - 08/22/2021 10:10 AM EDT [facility] Anticoagulation Episode Summary Anticoagulation Care Providers Provider Role Specialty Phone number Galina Iraheta MD [facility] Internal Medicine [phone] Christian Landrum is a 86 year old [...] * Unknown Zestril [Lisinopril] Indication for Warfarin: intermission coordinator (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 anticoagulants Paroxysmal atrial fibrillation [...] Pharmacy Anticoagulation Clinic Pharmacy Anticoagulation Clinic Pager: [phone] . documented in this encounterKindred Healthcare06-03-2022 Miscellaneous Notes* Telephone Encounter - Corinna Arenas RPh - 08/17/2021 10:26 AM EDT [facility] Anticoagulation Episode Summary Anticoagulation Care Providers Provider Role Specialty Phone number Galina Iraheta MD Responsible Internal Medicine [phone] Christian Landrum is a 86 year old [...] * Unknown Zestril [Lisinopril] Indication for Warfarin: intermission coordinator (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 anticoagulants Paroxysmal atrial fibrillation (hcc) Anticoagulation Episode Summary Current INR goal: 2.0-3.0 Assessment: INR result of 2.6 is therapeutic Plan: Called and spoke to patient/caregiver Advised patient to continue current weekly dose Next home INR check scheduled on 08/22/2021 Patient is having vaginal bleeding, is scheduled for d&c with polypectomy on 08/23; was advised by DISABILITY COUNSELOR that warfarin isn't usually held for the procedure Advised to test INR the day prior to ensure it isn't elevated Patient verbalizes understanding of the plan. Patient denies need for refills. Corinna Arenas RPh Clinical Pharmacist, Pharmacy Anticoagulation Clinic Pharmacy Anticoagulation Clinic Pager: [phone] . documented in this encounterKindred Healthcare06-02-2022 Miscellaneous Notes* Telephone Encounter - Madyson Agosto [...] to call office. Patient is scheduled at [facility] for surgery on 08/29/2021 @ 7:30 am. [facility] will call with arrival time.Phone PAT is 08/23/2021 8:00 am. Patient needs 2 week post-op documented in this encounterKindred Healthcare06-01-2022 History and physical note * Jayde Hebert [...] benign mass on liver PMR (polymyalgia rheumatica) ([facility]) 2012 Pure hypercholesterolemia Snoring Squamous cell cancer [...] tablet by mouth once daily. 90 tablet3 dtccdou-llklctlvq-bqydkmc D3 500 mg-5 mcg (200 unit) per [...] allergies Jayde Hebert M.D. 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 Junior Designer History LMP: Postmenopausal Age at Menarche: Age at First : Age at Menopause: Junior Designer History Comments: Sexual Activity: Not Currently; Male Contraception: No contraception data on record PAST MEDICAL HISTORY Diagnosis Date Abdominal pain, left lower quadrant long standing Arrhythmia Arthritis Asthma Atrial fibrillation ([facility]) 2009 Atrophic vaginitis Benign neoplasm of colon [...] benign mass on liver PMR (polymyalgia rheumatica) ([facility]) 2012 Pure hypercholesterolemia Snoring Squamous cell cancer [...] Take 1 tablet by mouth once daily. ekaqxwn-kzhntcedb-kgjjvet D3 500 mg-5 mcg (200 unit) per [...] one but not sure this is satisfactory prison. Use vaginal estrogne 2-3 times a week Patient is likely going to need a cholecystectomy but her surgeon wanted her to have the hysteroscopy D&C and the pathology returned on that before she proceeded with the more invasive cholecystectomy. Medical Decision Making Jayde Hebert MD documented in this encounterKindred Healthcare06-01-2022 Miscellaneous Notes* Telephone Encounter - An Ta APRN.CNP - 08/15/2021 9:01 AM EDT Patient admitted to hospital. Nitrofurantion discontinued. An Ta APRN.CNP documented in this encounterKindred Healthcare05-31-2022 Miscellaneous Notes* Telephone Encounter - Nury Andres RP - 08/14/2021 4:37 PM EDT [facility] Anticoagulation Episode Summary Anticoagulation Care Providers Provider Role Specialty Phone number Galina Iraheta MD [facility] Internal Medicine [phone] Christian Landrum is a 86 year old [...] Pharmacy Anticoagulation Clinic Pharmacy Anticoagulation Clinic Pager: [phone] . documented in this encounterKindred Healthcare05-29-2022 Miscellaneous Notes* Telephone Encounter - Daysi Riddle [...] Outcome: Daughter will drive her mother to [facility]. Reason for Disposition [1] Unable to urinate (or only a few drops) > 4 hours AND [2] bladder feels very full (e.g., palpable bladder or strong urge to urinate) Protocols used: URINE - BLOOD IN-ADULT- documented in this encounterKindred Healthcare05-27-2022 Miscellaneous Notes* Telephone Encounter - Maria A [...] Pam in lab who spoke with main platte lab,[facility] was having issues with those orders [...] you An Ta APRN.CNP documented in this encounterKindred Healthcare05-25-2022 History of Present illness Narrative* An Ta APRN.CNP - 08/08/2021 2:12 PM EDT CC: Patient presents with: Recheck: Hosp follow up, HPI Christian Landrum is a 86 year old female who presents today for hospital follow- up with daughter who drove her to appointment. Facility: [facility] Date of visit: 07/06/21 - 07/12/21 Reason [...] polyp is addressed and she sees her cooperative education coordinator for her cirrhosis. Post discharge she spent 2 weks for OT and PT at [facility] where is currently on hospice. Now [...] benign mass on liver PMR (polymyalgia rheumatica) ([facility]) 2012 Pure hypercholesterolemia Snoring Squamous cell cancer [...] Take 1 tablet by mouth once daily. jpdpgvg-djybrxqpx-exnmrin D3 500 mg-5 mcg (200 unit) per [...] with more than 50% of the total nhwf-wg-likk time of the visit in counseling / coordination of care. Prescription instructions reviewed with patient as applicable. Potential red flag symptoms discussed with the patient. Reviewed appropriate action plan to take if red flag symptoms occur. Patient agreeable to treatment plan. An Ta APRN.CNP documented in this encounterKindred Healthcare05-17-2022 Miscellaneous Notes* Telephone Encounter - Nury Andres RPh - 07/31/2021 4:00 PM EDT [facility] Anticoagulation Episode Summary Anticoagulation Care Providers Provider Role Specialty Phone number Galnia Iraheta MD [facility] Internal Medicine [phone] Christian Landrum is a 86 year old [...] Pharmacy Anticoagulation Clinic Pharmacy Anticoagulation Clinic Pager: [phone] . documented in this encounterKindred Healthcare05-13-2022 Miscellaneous Notes* Telephone Encounter - Maria A Khanna RN - 07/27/2021 12:59 PM EDT [facility] called and is notified of providers message. She voices understanding. Maria A Khanna RN * Telephone Encounter - An Ta APRN.CNP - 07/27/2021 12:41 PM EDT Provider agrees to follow. Thank you An Ta APRN.INGE * Telephone Encounter - Violet Rockwell RN - 07/27/2021 10:59 AM EDT Ricky Brown, [facility], reports patient is being discharged from [facility] tomorrow with orders for PT & OT. Asking if pcp agrees to follow? Asking for reply today, as they plan to see patient on Friday. [phone] documented in this encounterKindred Healthcare05-10-2022 Miscellaneous Notes* Telephone Encounter - Jocy Scherer - 07/24/2021 2:04 PM EDT LVM with patient and sent msg. Appointment with Shalom on 07/27 needs rescheduled first available. Appt has been cancelled. documented in this encounterKindred Healthcare05-06-2022 Miscellaneous Notes* Telephone Encounter - Juliet Cuevas [...] polypectomy more, but she ended up at [facility] last month for a week d/t multiple medical problems one of thema UTI. Calling today because she is starting with urinary frequency again and worsening vaginal dryness. She has not used estrace cream since 02/2021 sometime. Offered appointment today, but patient is still at [facility] for rehab. Advised to speak to [...] advise. Inge Salter RN documented in this encounterKindred Healthcare05-04-2022 Miscellaneous Notes* Telephone Encounter - Vania Guillory RN - 07/18/2021 10:16 AM EDT Patient placed on [facility] list for follow up. Letty Guillory RN Pharmacy Anticoagulation Clinic * Telephone Encounter - Marlin Ansari RPh - 07/18/2021 9:54 AM EDT INR was due today. Reviewed notes and found pt was recently hospitalized and discharged to SNF. Will forward to PAC team to f/u. documented in this encounterKindred Healthcare04-22-2022 History of Past illness Narrative* Problem Noted Date Resolved Date Dysuria 07/06/2021 07/08/2021 Obesity, Class I, BMI 30-34.9 01/12/2021 GI bleed 01/12/2021 01/14/2021 Acute blood loss anemia 01/12/2021 01/15/20 LLQ pain 09/05/2017 04/09/2021 Overview: Added automatically from request for surgery [id number] Malignant neoplasm of lower- inner quadrant of right breast of female, estrogen receptor positive 06/03/2017 07/06/2021 Personal history of breast cancer 12/18/2016 04/09/2021 Overview: Added automatically from request for surgery [id number] Permanent atrial fibrillation 12/26/2015 Diverticulitis of large [...] of this encounter (statuses as of 07/11/2021) [facility] of Past illness Narrative* Problem Noted Date Resolved Date Dysuria 07/06/2021 07/08/2021 Obesity, Class I, BMI 30-34.9 01/12/2021 GI bleed 01/12/2021 01/14/2021 Acute blood loss anemia 01/12/2021 01/15/20 LLQ pain 09/05/2017 04/09/2021 Overview: Added automatically from request for surgery [id number] Malignant neoplasm of lower- inner quadrant of right breast of female, estrogen receptor positive 06/03/2017 07/06/2021 Personal history of breast cancer 12/18/2016 04/09/2021 Overview: Added automatically from request for surgery [id number] Permanent atrial fibrillation 12/26/2015 Diverticulitis of large [...] of this encounter (statuses as of 07/16/2021) [facility] of Past illness Narrative* Problem Noted Date Resolved Date Dysuria 07/06/2021 07/08/2021 Obesity, Class I, BMI 30-34.9 01/12/2021 GI bleed 01/12/2021 01/14/2021 Acute blood loss anemia 01/12/2021 01/15/20 LLQ pain 09/05/2017 04/09/2021 Overview: Added automatically from request for surgery [id number] Malignant neoplasm of lower- inner quadrant of right breast of female, estrogen receptor positive 06/03/2017 07/06/2021 Personal history of breast cancer 12/18/2016 04/09/2021 Overview: Added automatically from request for surgery [id number] Permanent atrial fibrillation 12/26/2015 Diverticulitis of large [...] of this encounter (statuses as of 07/18/2021) [facility] of Past illness Narrative* Problem Noted Date Resolved Date Dysuria 07/06/2021 07/08/2021 Obesity, Class I, BMI 30-34.9 01/12/2021 GI bleed 01/12/2021 01/14/2021 Acute blood loss anemia 01/12/2021 01/15/20 LLQ pain 09/05/2017 04/09/2021 Overview: Added automatically from request for surgery [id number] Malignant neoplasm of lower- inner quadrant of right breast of female, estrogen receptor positive 06/03/2017 07/06/2021 Personal history of breast cancer 12/18/2016 04/09/2021 Overview: Added automatically from request for surgery [id number] Permanent atrial fibrillation 12/26/2015 Diverticulitis of large [...] of this encounter (statuses as of 07/20/2021) [facility] of [facility] illness Narrative* Problem Noted Date Resolved Date Dysuria 07/06/2021 07/08/2021 Obesity, Class I, BMI 30-34.9 01/12/2021 GI bleed 01/12/2021 01/14/2021 Acute blood loss anemia 01/12/2021 01/15/20 LLQ pain 09/05/2017 04/09/2021 Overview: Added automatically from request for surgery [id number] Malignant neoplasm of lower- inner quadrant of right breast of female, estrogen receptor positive 06/03/2017 07/06/2021 Personal history of breast cancer 12/18/2016 04/09/2021 Overview: Added automatically from request for surgery [id number] Permanent atrial fibrillation 12/26/2015 Diverticulitis of large [...] of this encounter (statuses as of 07/24/2021) [facility] of [facility] illness Narrative* Problem Noted Date Resolved Date Dysuria 07/06/2021 07/08/2021 Obesity, Class I, BMI 30-34.9 01/12/2021 GI bleed 01/12/2021 01/14/2021 Acute blood loss anemia 01/12/2021 01/15/20 LLQ pain 09/05/2017 04/09/2021 Overview: Added automatically from request for surgery [id number] Malignant neoplasm of lower- inner quadrant of right breast of female, estrogen receptor positive 06/03/2017 07/06/2021 Personal history of breast cancer 12/18/2016 04/09/2021 Overview: Added automatically from request for surgery [id number] Permanent atrial fibrillation 12/26/2015 Diverticulitis of large [...] of this encounter (statuses as of 07/24/2021) [facility] of Past illness Narrative* Problem Noted Date Resolved Date Dysuria 07/06/2021 07/08/2021 Obesity, Class I, BMI 30-34.9 01/12/2021 GI bleed 01/12/2021 01/14/2021 Acute blood loss anemia 01/12/2021 01/15/20 LLQ pain 09/05/2017 04/09/2021 Overview: Added automatically from request for surgery [id number] Malignant neoplasm of lower- inner quadrant of right breast of female, estrogen receptor positive 06/03/2017 07/06/2021 Personal history of breast cancer 12/18/2016 04/09/2021 Overview: Added automatically from request for surgery [id number] Permanent atrial fibrillation 12/26/2015 Diverticulitis of large [...] of this encounter (statuses as of 07/27/2021) [facility] of [facility] illness Narrative* Problem Noted Date Resolved Date Dysuria 07/06/2021 07/08/2021 Obesity, Class I, BMI 30-34.9 01/12/2021 GI bleed 01/12/2021 01/14/2021 Acute blood loss anemia 01/12/2021 01/15/20 LLQ pain 09/05/2017 04/09/2021 Overview: Added automatically from request for surgery [id number] Malignant neoplasm of lower- inner quadrant of right breast of female, estrogen receptor positive 06/03/2017 07/06/2021 Personal history of breast cancer 12/18/2016 04/09/2021 Overview: Added automatically from request for surgery [id number] Permanent atrial fibrillation 12/26/2015 Diverticulitis of large [...] of this encounter (statuses as of 07/30/2021) [facility] Narrative* Problem Noted Date Resolved Date Dysuria 07/06/2021 07/08/2021 Obesity, Class I, BMI 30-34.9 01/12/2021 GI bleed 01/12/2021 01/14/2021 Acute blood loss anemia 01/12/2021 01/15/20 LLQ pain 09/05/2017 04/09/2021 Overview: Added automatically from request for surgery [id number] Malignant neoplasm of lower- inner quadrant of right breast of female, estrogen receptor positive 06/03/2017 07/06/2021 Personal history of breast cancer 12/18/2016 04/09/2021 Overview: Added automatically from request for surgery [id number] Permanent atrial fibrillation 12/26/2015 Diverticulitis of large [...] of this encounter (statuses as of 07/31/2021) [facility] of [facility] Narrative* Problem Noted Date Resolved Date Dysuria 07/06/2021 07/08/2021 Obesity, Class I, BMI 30-34.9 01/12/2021 GI bleed 01/12/2021 01/14/2021 Acute blood loss anemia 01/12/2021 01/15/20 LLQ pain 09/05/2017 04/09/2021 Overview: Added automatically from request for surgery [id number] Malignant neoplasm of lower- inner quadrant of right breast of female, estrogen receptor positive 06/03/2017 07/06/2021 Personal history of breast cancer 12/18/2016 04/09/2021 Overview: Added automatically from request for surgery [id number] Permanent atrial fibrillation 12/26/2015 Diverticulitis of large [...] of this encounter (statuses as of 08/08/2021) [facility] of [facility] Narrative* Problem Noted Date Resolved Date Dysuria 07/06/2021 07/08/2021 Obesity, Class I, BMI 30-34.9 01/12/2021 GI bleed 01/12/2021 01/14/2021 Acute blood loss anemia 01/12/2021 01/15/20 LLQ pain 09/05/2017 04/09/2021 Overview: Added automatically from request for surgery [id number] Malignant neoplasm of lower- inner quadrant of right breast of female, estrogen receptor positive 06/03/2017 07/06/2021 Personal history of breast cancer 12/18/2016 04/09/2021 Overview: Added automatically from request for surgery [id number] Permanent atrial fibrillation 12/26/2015 Diverticulitis of large [...] of this encounter (statuses as of 08/10/2021) [facility] of [facility] Narrative* Problem Noted Date Resolved Date Dysuria 07/06/2021 07/08/2021 Obesity, Class I, BMI 30-34.9 01/12/2021 GI bleed 01/12/2021 01/14/2021 Acute blood loss anemia 01/12/2021 01/15/20 LLQ pain 09/05/2017 04/09/2021 Overview: Added automatically from request for surgery [id number] Malignant neoplasm of lower- inner quadrant of right breast of female, estrogen receptor positive 06/03/2017 07/06/2021 Personal history of breast cancer 12/18/2016 04/09/2021 Overview: Added automatically from request for surgery [id number] Permanent atrial fibrillation 12/26/2015 Diverticulitis of large [...] of this encounter (statuses as of 08/10/2021) [facility] Narrative* Problem Noted Date Resolved Date Dysuria 07/06/2021 07/08/2021 Obesity, Class I, BMI 30-34.9 01/12/2021 GI bleed 01/12/2021 01/14/2021 Acute blood loss anemia 01/12/2021 01/15/20 LLQ pain 09/05/2017 04/09/2021 Overview: Added automatically from request for surgery [id number] Malignant neoplasm of lower- inner quadrant of right breast of female, estrogen receptor positive 06/03/2017 07/06/2021 Personal history of breast cancer 12/18/2016 04/09/2021 Overview: Added automatically from request for surgery [id number] Permanent atrial fibrillation 12/26/2015 Diverticulitis of large [...] of this encounter (statuses as of 08/12/2021) [facility] of [facility] illness Narrative* Problem Noted Date Resolved Date Dysuria 07/06/2021 07/08/2021 Obesity, Class I, BMI 30-34.9 01/12/2021 GI bleed 01/12/2021 01/14/2021 Acute blood loss anemia 01/12/2021 01/15/20 LLQ pain 09/05/2017 04/09/2021 Overview: Added automatically from request for surgery [id number] Malignant neoplasm of lower- inner quadrant of right breast of female, estrogen receptor positive 06/03/2017 07/06/2021 Personal history of breast cancer 12/18/2016 04/09/2021 Overview: Added automatically from request for surgery [id number] Permanent atrial fibrillation 12/26/2015 Diverticulitis of large [...] of this encounter (statuses as of 08/14/2021) [facility] of [facility] illness Narrative* Problem Noted Date Resolved Date Dysuria 07/06/2021 07/08/2021 Obesity, Class I, BMI 30-34.9 01/12/2021 GI bleed 01/12/2021 01/14/2021 Acute blood loss anemia 01/12/2021 01/15/20 21 LLQ pain 09/05/2017 04/09/2021 Overview: Added automatically from request for surgery [id number] Malignant neoplasm of lower- inner quadrant of right breast of female, estrogen receptor positive 06/03/2017 07/06/2021 Personal history of breast cancer 12/18/2016 04/09/2021 Overview: Added automatically from request for surgery [id number] Permanent atrial fibrillation 12/26/2015 Diverticulitis of large [...] of this encounter (statuses as of 08/15/2021) [facility] illness Narrative* Problem Noted Date Resolved Date Dysuria 07/06/2021 07/08/2021 Obesity, Class I, BMI 30-34.9 01/12/2021 GI bleed 01/12/2021 01/14/2021 Acute blood loss anemia 01/12/2021 01/15/20 21 LLQ pain 09/05/2017 04/09/2021 Overview: Added automatically from request for surgery [id number] Malignant neoplasm of lower- inner quadrant of right breast of female, estrogen receptor positive 06/03/2017 07/06/2021 Personal history of breast cancer 12/18/2016 04/09/2021 Overview: Added automatically from request for surgery [id number] Permanent atrial fibrillation 12/26/2015 Diverticulitis of large [...] of this encounter (statuses as of 08/16/2021) [facility] of [facility] Narrative* Problem Noted Date Resolved Date Dysuria 07/06/2021 07/08/2021 Obesity, Class I, BMI 30-34.9 01/12/2021 GI bleed 01/12/2021 01/14/2021 Acute blood loss anemia 01/12/2021 01/15/20 21 LLQ pain 09/05/2017 04/09/2021 Overview: Added automatically from request for surgery [id number] Malignant neoplasm of lower- inner quadrant of right breast of female, estrogen receptor positive 06/03/2017 07/06/2021 Personal history of breast cancer 12/18/2016 04/09/2021 Overview: Added automatically from request for surgery [id number] Permanent atrial fibrillation 12/26/2015 Diverticulitis of large [...] of this encounter (statuses as of 08/17/2021) [facility] Narrative* Problem Noted Date Resolved Date Dysuria 07/06/2021 07/08/2021 Obesity, Class I, BMI 30-34.9 01/12/2021 GI bleed 01/12/2021 01/14/2021 Acute blood loss anemia 01/12/2021 01/15/20 LLQ pain 09/05/2017 04/09/2021 Overview: Added automatically from request for surgery [id number] Malignant neoplasm of lower- inner quadrant of right breast of female, estrogen receptor positive 06/03/2017 07/06/2021 Personal history of breast cancer 12/18/2016 04/09/2021 Overview: Added automatically from request for surgery [id number] Permanent atrial fibrillation 12/26/2015 Diverticulitis of large [...] of this encounter (statuses as of 08/20/2021) [facility] Narrative* Problem Noted Date Resolved Date Dysuria 07/06/2021 07/08/2021 Obesity, Class I, BMI 30-34.9 01/12/2021 GI bleed 01/12/2021 01/14/2021 Acute blood loss anemia 01/12/2021 01/15/20 21 LLQ pain 09/05/2017 04/09/2021 Overview: Added automatically from request for surgery [id number] Malignant neoplasm of lower- inner quadrant of right breast of female, estrogen receptor positive 06/03/2017 07/06/2021 Personal history of breast cancer 12/18/2016 04/09/2021 Overview: Added automatically from request for surgery [id number] Permanent atrial fibrillation 12/26/2015 Diverticulitis of large [...] of this encounter (statuses as of 08/22/2021) [facility] Narrative* Problem Noted Date Resolved Date Dysuria 07/06/2021 07/08/2021 Obesity, Class I, BMI 30-34.9 01/12/2021 GI bleed 01/12/2021 01/14/2021 Acute blood loss anemia 01/12/2021 01/15/20 21 LLQ pain 09/05/2017 04/09/2021 Overview: Added automatically from request for surgery [id number] Malignant neoplasm of lower- inner quadrant of right breast of female, estrogen receptor positive 06/03/2017 07/06/2021 Personal history of breast cancer 12/18/2016 04/09/2021 Overview: Added automatically from request for surgery [id number] Permanent atrial fibrillation 12/26/2015 Diverticulitis of large [...] of this encounter (statuses as of 08/26/2021) [facility] Narrative* Problem Noted Date Resolved Date Dysuria 07/06/2021 07/08/2021 Obesity, Class I, BMI 30-34.9 01/12/2021 GI bleed 01/12/2021 01/14/2021 Acute blood loss anemia 01/12/2021 01/15/20 LLQ pain 09/05/2017 04/09/2021 Overview: Added automatically from request for surgery [id number] Malignant neoplasm of lower- inner quadrant of right breast of female, estrogen receptor positive 06/03/2017 07/06/2021 Personal history of breast cancer 12/18/2016 04/09/2021 Overview: Added automatically from request for surgery [id number] Permanent atrial fibrillation 12/26/2015 Diverticulitis of large [...] of this encounter (statuses as of 08/26/2021) [facility] of [facility] Narrative* Problem Noted Date Resolved Date Dysuria 07/06/2021 07/08/2021 Obesity, Class I, BMI 30-34.9 01/12/2021 GI bleed 01/12/2021 01/14/2021 Acute blood loss anemia 01/12/2021 01/15/20 21 LLQ pain 09/05/2017 04/09/2021 Overview: Added automatically from request for surgery [id number] Malignant neoplasm of lower- inner quadrant of right breast of female, estrogen receptor positive 06/03/2017 07/06/2021 Personal history of breast cancer 12/18/2016 04/09/2021 Overview: Added automatically from request for surgery [id number] Permanent atrial fibrillation 12/26/2015 Diverticulitis of large [...] of this encounter (statuses as of 08/26/2021) [facility] Narrative* Problem Noted Date Resolved Date Dysuria 07/06/2021 07/08/2021 Obesity, Class I, BMI 30-34.9 01/12/2021 GI bleed 01/12/2021 01/14/2021 Acute blood loss anemia 01/12/2021 01/15/20 21 LLQ pain 09/05/2017 04/09/2021 Overview: Added automatically from request for surgery [id number] Malignant neoplasm of lower- inner quadrant of right breast of female, estrogen receptor positive 06/03/2017 07/06/2021 Personal history of breast cancer 12/18/2016 04/09/2021 Overview: Added automatically from request for surgery [id number] Permanent atrial fibrillation 12/26/2015 Diverticulitis of large [...] of this encounter (statuses as of 08/26/2021) [facility] Narrative* Problem Noted Date Resolved Date Dysuria 07/06/2021 07/08/2021 Obesity, Class I, BMI 30-34.9 01/12/2021 GI bleed 01/12/2021 01/14/2021 Acute blood loss anemia 01/12/2021 01/15/20 21 LLQ pain 09/05/2017 04/09/2021 Overview: Added automatically from request for surgery [id number] Malignant neoplasm of lower- inner quadrant of right breast of female, estrogen receptor positive 06/03/2017 07/06/2021 Personal history of breast cancer 12/18/2016 04/09/2021 Overview: Added automatically from request for surgery [id number] Permanent atrial fibrillation 12/26/2015 Diverticulitis of large [...] of this encounter (statuses as of 08/28/2021) [facility] Narrative* Problem Noted Date Resolved Date Dysuria 07/06/2021 07/08/2021 Obesity, Class I, BMI 30-34.9 01/12/2021 GI bleed 01/12/2021 01/14/2021 Acute blood loss anemia 01/12/2021 01/15/20 LLQ pain 09/05/2017 04/09/2021 Overview: Added automatically from request for surgery [id number] Malignant neoplasm of lower- inner quadrant of right breast of female, estrogen receptor positive 06/03/2017 07/06/2021 Personal history of breast cancer 12/18/2016 04/09/2021 Overview: Added automatically from request for surgery [id number] Permanent atrial fibrillation 12/26/2015 Diverticulitis of large [...] of this encounter (statuses as of 08/28/2021) [facility] Past illness Narrative* Problem Noted Date Resolved Date Dysuria 07/06/2021 07/08/2021 Obesity, Class I, BMI 30-34.9 01/12/2021 GI bleed 01/12/2021 01/14/2021 Acute blood loss anemia 01/12/2021 01/15/20 21 LLQ pain 09/05/2017 04/09/2021 Overview: Added automatically from request for surgery [id number] Malignant neoplasm of lower- inner quadrant of right breast of female, estrogen receptor positive 06/03/2017 07/06/2021 Personal history of breast cancer 12/18/2016 04/09/2021 Overview: Added automatically from request for surgery [id number] Permanent atrial fibrillation 12/26/2015 Diverticulitis of large [...] of this encounter (statuses as of 08/30/2021) [facility] History of Past illness Narrative* Problem Noted Date Resolved Date Dysuria 07/06/2021 07/08/2021 Obesity, Class I, BMI 30-34.9 01/12/2021 GI bleed 01/12/2021 01/14/2021 Acute blood loss anemia 01/12/2021 01/15/20 21 LLQ pain 09/05/2017 04/09/2021 Overview: Added automatically from request for surgery [id number] Malignant neoplasm of lower- inner quadrant of right breast of female, estrogen receptor positive 06/03/2017 07/06/2021 Personal history of breast cancer 12/18/2016 04/09/2021 Overview: Added automatically from request for surgery [id number] Permanent atrial fibrillation 12/26/2015 Diverticulitis of large [...] of this encounter (statuses as of 08/31/2021) [facility] History of Past illness Narrative* Problem Noted Date Resolved Date Dysuria 07/06/2021 07/08/2021 Obesity, Class I, BMI 30-34.9 01/12/2021 GI bleed 01/12/2021 01/14/2021 Acute blood loss anemia 01/12/2021 01/15/20 LLQ pain 09/05/2017 04/09/2021 Overview: Added automatically from request for surgery [id number] Malignant neoplasm of lower- inner quadrant of right breast of female, estrogen receptor positive 06/03/2017 07/06/2021 Personal history of breast cancer 12/18/2016 04/09/2021 Overview: Added automatically from request for surgery [id number] Permanent atrial fibrillation 12/26/2015 Diverticulitis of large [...] of this encounter (statuses as of 09/05/2021) [facility] History of Past illness Narrative* Problem Noted Date Resolved Date Dysuria 07/06/2021 07/08/2021 Obesity, Class I, BMI 30-34.9 01/12/2021 GI bleed 01/12/2021 01/14/2021 Acute blood loss anemia 01/12/2021 01/15/20 LLQ pain 09/05/2017 04/09/2021 Overview: Added automatically from request for surgery [id number] Malignant neoplasm of lower- inner quadrant of right breast of female, estrogen receptor positive 06/03/2017 07/06/2021 Personal history of breast cancer 12/18/2016 04/09/2021 Overview: Added automatically from request for surgery [id number] Permanent atrial fibrillation 12/26/2015 Diverticulitis of large [...] of this encounter (statuses as of 09/05/2021) [facility] History of Past illness Narrative* Problem Noted Date Resolved Date Dysuria 07/06/2021 07/08/2021 Obesity, Class I, BMI 30-34.9 01/12/2021 GI bleed 01/12/2021 01/14/2021 Acute blood loss anemia 01/12/2021 01/15/20 21 LLQ pain 09/05/2017 04/09/2021 Overview: Added automatically from request for surgery [id number] Malignant neoplasm of lower- inner quadrant of right breast of female, estrogen receptor positive 06/03/2017 07/06/2021 Personal history of breast cancer 12/18/2016 04/09/2021 Overview: Added automatically from request for surgery [id number] Permanent atrial fibrillation 12/26/2015 Diverticulitis of large [...] of this encounter (statuses as of 09/07/2021) [facility] History of Past illness Narrative* Problem Noted Date Resolved Date Dysuria 07/06/2021 07/08/2021 Obesity, Class I, BMI 30-34.9 01/12/2021 GI bleed 01/12/2021 01/14/2021 Acute blood loss anemia 01/12/2021 01/15/20 21 LLQ pain 09/05/2017 04/09/2021 Overview: Added automatically from request for surgery [id number] Malignant neoplasm of lower- inner quadrant of right breast of female, estrogen receptor positive 06/03/2017 07/06/2021 Personal history of breast cancer 12/18/2016 04/09/2021 Overview: Added automatically from request for surgery [id number] Permanent atrial fibrillation 12/26/2015 Diverticulitis of large [...] of this encounter (statuses as of 09/10/2021) [facility] History of Past illness Narrative* Problem Noted Date Resolved Date Dysuria 07/06/2021 07/08/2021 Obesity, Class I, BMI 30-34.9 01/12/2021 GI bleed 01/12/2021 01/14/2021 Acute blood loss anemia 01/12/2021 01/15/20 LLQ pain 09/05/2017 04/09/2021 Overview: Added automatically from request for surgery [id number] Malignant neoplasm of lower- inner quadrant of right breast of female, estrogen receptor positive 06/03/2017 07/06/2021 Personal history of breast cancer 12/18/2016 04/09/2021 Overview: Added automatically from request for surgery [id number] Permanent atrial fibrillation 12/26/2015 Diverticulitis of large [...] of this encounter (statuses as of 09/11/2021) [facility] History of Past illness Narrative* Problem Noted Date Resolved Date Dysuria 07/06/2021 07/08/2021 Obesity, Class I, BMI 30-34.9 01/12/2021 GI bleed 01/12/2021 01/14/2021 Acute blood loss anemia 01/12/2021 01/15/20 LLQ pain 09/05/2017 04/09/2021 Overview: Added automatically from request for surgery [id number] Malignant neoplasm of lower- inner quadrant of right breast of female, estrogen receptor positive 06/03/2017 07/06/2021 Personal history of breast cancer 12/18/2016 04/09/2021 Overview: Added automatically from request for surgery [id number] Permanent atrial fibrillation 12/26/2015 Diverticulitis of large [...] of this encounter (statuses as of 09/12/2021) [facility] History of Past illness Narrative* Problem Noted Date Resolved Date Dysuria 07/06/2021 07/08/2021 Obesity, Class I, BMI 30-34.9 01/12/2021 GI bleed 01/12/2021 01/14/2021 Acute blood loss anemia 01/12/2021 01/15/20 21 LLQ pain 09/05/2017 04/09/2021 Overview: Added automatically from request for surgery [id number] Malignant neoplasm of lower- inner quadrant of right breast of female, estrogen receptor positive 06/03/2017 07/06/2021 Personal history of breast cancer 12/18/2016 04/09/2021 Overview: Added automatically from request for surgery [id number] Permanent atrial fibrillation 12/26/2015 Diverticulitis of large [...] of this encounter (statuses as of 09/18/2021) [facility] History of Past illness Narrative* Problem Noted Date Resolved Date Dysuria 07/06/2021 07/08/2021 Obesity, Class I, BMI 30-34.9 01/12/2021 GI bleed 01/12/2021 01/14/2021 Acute blood loss anemia 01/12/2021 01/15/20 21 LLQ pain 09/05/2017 04/09/2021 Overview: Added automatically from request for surgery [id number] Malignant neoplasm of lower- inner quadrant of right breast of female, estrogen receptor positive 06/03/2017 07/06/2021 Personal history of breast cancer 12/18/2016 04/09/2021 Overview: Added automatically from request for surgery [id number] Permanent atrial fibrillation 12/26/2015 Diverticulitis of large [...] of this encounter (statuses as of 09/18/2021) [facility] History of Past illness Narrative* Problem Noted Date Resolved Date Dysuria 07/06/2021 07/08/2021 Obesity, Class I, BMI 30-34.9 01/12/2021 GI bleed 01/12/2021 01/14/2021 Acute blood loss anemia 01/12/2021 01/15/20 21 LLQ pain 09/05/2017 04/09/2021 Overview: Added automatically from request for surgery [id number] Malignant neoplasm of lower- inner quadrant of right breast of female, estrogen receptor positive 06/03/2017 07/06/2021 Personal history of breast cancer 12/18/2016 04/09/2021 Overview: Added automatically from request for surgery [id number] Permanent atrial fibrillation 12/26/2015 Diverticulitis of large inte nagélica without perforation or abscess without bleeding 11/17/2015 [...] of this encounter (statuses as of 09/19/2021) [facility] History of Past illness Narrative* Problem Noted Date Resolved Date Dysuria 07/06/2021 07/08/2021 Obesity, Class I, BMI 30-34.9 01/12/2021 GI bleed 01/12/2021 01/14/2021 Acute blood loss anemia 01/12/2021 01/15/20 21 LLQ pain 09/05/2017 04/09/2021 Overview: Added automatically from request for surgery [id number] Malignant neoplasm of lower- inner quadrant of right breast of female, estrogen receptor positive 06/03/2017 07/06/2021 Personal history of breast cancer 12/18/2016 04/09/2021 Overview: Added automatically from request for surgery [id number] Permanent atrial fibrillation 12/26/2015 Diverticulitis of large [...] of this encounter (statuses as of 09/28/2021) [facility] History of Past illness Narrative* Problem Noted Date Resolved Date Dysuria 07/06/2021 07/08/2021 Obesity, Class I, BMI 30-34.9 01/12/2021 GI bleed 01/12/2021 01/14/2021 Acute blood loss anemia 01/12/2021 01/15/20 21 LLQ pain 09/05/2017 04/09/2021 Overview: Added automatically from request for surgery [id number] Malignant neoplasm of lower- inner quadrant of right breast of female, estrogen receptor positive 06/03/2017 07/06/2021 Personal history of breast cancer 12/18/2016 04/09/2021 Overview: Added automatically from request for surgery [id number] Permanent atrial fibrillation 12/26/2015 Diverticulitis of large [...] of this encounter (statuses as of 10/02/2021) [facility] History of Past illness Narrative* Problem Noted Date Resolved Date Dysuria 07/06/2021 07/08/2021 Obesity, Class I, BMI 30-34.9 01/12/2021 GI bleed 01/12/2021 01/14/2021 Acute blood loss anemia 01/12/2021 01/15/20 21 LLQ pain 09/05/2017 04/09/2021 Overview: Added automatically from request for surgery [id number] Malignant neoplasm of lower- inner quadrant of right breast of female, estrogen receptor positive 06/03/2017 07/06/2021 Personal history of breast cancer 12/18/2016 04/09/2021 Overview: Added automatically from request for surgery [id number] Permanent atrial fibrillation 12/26/2015 Diverticulitis of large [...] of this encounter (statuses as of 10/11/2021) [facility] History of Past illness Narrative* Problem Noted Date Resolved Date Dysuria 07/06/2021 07/08/2021 Obesity, Class I, BMI 30-34.9 01/12/2021 GI bleed 01/12/2021 01/14/2021 Acute blood loss anemia 01/12/2021 01/15/20 21 LLQ pain 09/05/2017 04/09/2021 Overview: Added automatically from request for surgery [id number] Malignant neoplasm of lower- inner quadrant of right breast of female, estrogen receptor positive 06/03/2017 07/06/2021 Personal history of breast cancer 12/18/2016 04/09/2021 Overview: Added automatically from request for surgery [id number] Permanent atrial fibrillation 12/26/2015 Diverticulitis of large [...] of this encounter (statuses as of 10/15/2021) [facility] History of Past illness Narrative* Problem Noted Date Resolved Date Dysuria 07/06/2021 07/08/2021 Obesity, Class I, BMI 30-34.9 01/12/2021 GI bleed 01/12/2021 01/14/2021 Acute blood loss anemia 01/12/2021 01/15/20 21 LLQ pain 09/05/2017 04/09/2021 Overview: Added automatically from request for surgery [id number] Malignant neoplasm of lower- inner quadrant of right breast of female, estrogen receptor positive 06/03/2017 07/06/2021 Personal history of breast cancer 12/18/2016 04/09/2021 Overview: Added automatically from request for surgery [id number] Permanent atrial fibrillation 12/26/2015 Diverticulitis of large [...] of this encounter (statuses as of 10/15/2021) [facility] History of Past illness Narrative* Problem Noted Date Resolved Date Dysuria 07/06/2021 07/08/2021 Obesity, Class I, BMI 30-34.9 01/12/2021 GI bleed 01/12/2021 01/14/2021 Acute blood loss anemia 01/12/2021 01/15/20 LLQ pain 09/05/2017 04/09/2021 Overview: Added automatically from request for surgery [id number] Malignant neoplasm of lower- inner quadrant of right breast of female, estrogen receptor positive 06/03/2017 07/06/2021 Personal history of breast cancer 12/18/2016 04/09/2021 Overview: Added automatically from request for surgery [id number] Permanent atrial fibrillation 12/26/2015 Diverticulitis of large [...] Other and unspecified noninf ectious gastroenteritis and colitis(128.9) 11/03/2014 11/03/2014 Other specified rheumatoid arthritis, multiple [...] of this encounter (statuses as of 10/16/2021) [facility] History of Past illness Narrative* Problem Noted Date Resolved Date Dysuria 07/06/2021 07/08/2021 Obesity, Class I, BMI 30-34.9 01/12/2021 GI bleed 01/12/2021 01/14/2021 Acute blood loss anemia 01/12/2021 01/15/20 LLQ pain 09/05/2017 04/09/2021 Overview: Added automatically from request for surgery [id number] Malignant neoplasm of lower- inner quadrant of right breast of female, estrogen receptor positive 06/03/2017 07/06/2021 Personal history of breast cancer 12/18/2016 04/09/2021 Overview: Added automatically from request for surgery [id number] Permanent atrial fibrillation 12/26/2015 Diverticulitis of large [...] of this encounter (statuses as of 10/17/2021) [facility] History of Past illness Narrative* Problem Noted Date Resolved Date Dysuria 07/06/2021 07/08/2021 Obesity, Class I, BMI 30-34.9 01/12/2021 GI bleed 01/12/2021 01/14/2021 Acute blood loss anemia 01/12/2021 01/15/20 21 LLQ pain 09/05/2017 04/09/2021 Overview: Added automatically from request for surgery [id number] Malignant neoplasm of lower- inner quadrant of right breast of female, estrogen receptor positive 06/03/2017 07/06/2021 Personal history of breast cancer 12/18/2016 04/09/2021 Overview: Added automatically from request for surgery [id number] Permanent atrial fibrillation 12/26/2015 Diverticulitis of large [...] of this encounter (statuses as of 10/17/2021) [facility] History of Past illness Narrative* Problem Noted Date Resolved Date Dysuria 07/06/2021 07/08/2021 Obesity, Class I, BMI 30-34.9 01/12/2021 GI bleed 01/12/2021 01/14/2021 Acute blood loss anemia 01/12/2021 01/15/20 21 LLQ pain 09/05/2017 04/09/2021 Overview: Added automatically from request for surgery [id number] Malignant neoplasm of lower- inner quadrant of right breast of female, estrogen receptor positive 06/03/2017 07/06/2021 Personal history of breast cancer 12/18/2016 04/09/2021 Overview: Added automatically from request for surgery [id number] Permanent atrial fibrillation 12/26/2015 Diverticulitis of large [...] of this encounter (statuses as of 10/22/2021) [facility] History of Past illness Narrative* Problem Noted Date Resolved Date Dysuria 07/06/2021 07/08/2021 Obesity, Class I, BMI 30-34.9 01/12/2021 GI bleed 01/12/2021 01/14/2021 Acute blood loss anemia 01/12/2021 01/15/20 LLQ pain 09/05/2017 04/09/2021 Overview: Added automatically from request for surgery [id number] Malignant neoplasm of lower- inner quadrant of right breast of female, estrogen receptor positive 06/03/2017 07/06/2021 Personal history of breast cancer 12/18/2016 04/09/2021 Overview: Added automatically from request for surgery [id number] Permanent atrial fibrillation 12/26/2015 Diverticulitis of large [...] of this encounter (statuses as of 11/02/2021) [facility] History of Past illness Narrative* Problem Noted Date Resolved Date Dysuria 07/06/2021 07/08/2021 Obesity, Class I, BMI 30-34.9 01/12/2021 GI bleed 01/12/2021 01/14/2021 Acute blood loss anemia 01/12/2021 01/15/20 21 LLQ pain 09/05/2017 04/09/2021 Overview: Added automatically from request for surgery [id number] Malignant neoplasm of lower- inner quadrant of right breast of female, estrogen receptor positive 06/03/2017 07/06/2021 Personal history of breast cancer 12/18/2016 04/09/2021 Overview: Added automatically from request for surgery [id number] Permanent atrial fibrillation 12/26/2015 Diverticulitis of large [...] of this encounter (statuses as of 11/06/2021) [facility] History of Past illness Narrative* Problem Noted Date Resolved Date Dysuria 07/06/2021 07/08/2021 Obesity, Class I, BMI 30-34.9 01/12/2021 GI bleed 01/12/2021 01/14/2021 Acute blood loss anemia 01/12/2021 01/15/20 21 LLQ pain 09/05/2017 04/09/2021 Overview: Added automatically from request for surgery [id number] Malignant neoplasm of lower- inner quadrant of right breast of female, estrogen receptor positive 06/03/2017 07/06/2021 Personal history of breast cancer 12/18/2016 04/09/2021 Overview: Added automatically from request for surgery [id number] Permanent atrial fibrillation 12/26/2015 Diverticulitis of large [...] of this encounter (statuses as of 11/13/2021) [facility] History of Past illness Narrative* Problem Noted Date Resolved Date Dysuria 07/06/2021 07/08/2021 Obesity, Class I, BMI 30-34.9 01/12/2021 GI bleed 01/12/2021 01/14/2021 Acute blood loss anemia 01/12/2021 01/15/20 LLQ pain 09/05/2017 04/09/2021 Overview: Added automatically from request for surgery [id number] Malignant neoplasm of lower- inner quadrant of right breast of female, estrogen receptor positive 06/03/2017 07/06/2021 Personal history of breast cancer 12/18/2016 04/09/2021 Overview: Added automatically from request for surgery [id number] Permanent atrial fibrillation 12/26/2015 Diverticulitis of large [...] of this encounter (statuses as of 12/11/2021) [facility] History of Past illness Narrative* Problem Noted Date Resolved Date Dysuria 07/06/2021 07/08/2021 Obesity, Class I, BMI 30-34.9 01/12/2021 GI bleed 01/12/2021 01/14/2021 Acute blood loss anemia 01/12/2021 01/15/20 21 LLQ pain 09/05/2017 04/09/2021 Overview: Added automatically from request for surgery [id number] Malignant neoplasm of lower- inner quadrant of right breast of female, estrogen receptor positive 06/03/2017 07/06/2021 Personal history of breast cancer 12/18/2016 04/09/2021 Overview: Added automatically from request for surgery [id number] Permanent atrial fibrillation 12/26/2015 Diverticulitis of large [...] of this encounter (statuses as of 12/25/2021) [facility] History of Past illness Narrative* Problem Noted Date Resolved Date Dysuria 07/06/2021 07/08/2021 Obesity, Class I, BMI 30-34.9 01/12/2021 GI bleed 01/12/2021 01/14/2021 Acute blood loss anemia 01/12/2021 01/15/20 21 LLQ pain 09/05/2017 04/09/2021 Overview: Added automatically from request for surgery [id number] Malignant neoplasm of lower- inner quadrant of right breast of female, estrogen receptor positive 06/03/2017 07/06/2021 Personal history of breast cancer 12/18/2016 04/09/2021 Overview: Added automatically from request for surgery [id number] Permanent atrial fibrillation 12/26/2015 Diverticulitis of large [...] of this encounter (statuses as of 01/02/2022) [facility] History of Past illness Narrative* Problem Noted Date Resolved Date Dysuria 07/06/2021 07/08/2021 Obesity, Class I, BMI 30-34.9 01/12/2021 GI bleed 01/12/2021 01/14/2021 Acute blood loss anemia 01/12/2021 01/15/20 LLQ pain 09/05/2017 04/09/2021 Overview: Added automatically from request for surgery [id number] Malignant neoplasm of lower- inner quadrant of right breast of female, estrogen receptor positive 06/03/2017 07/06/2021 Personal history of breast cancer 12/18/2016 04/09/2021 Overview: Added automatically from request for surgery [id number] Permanent atrial fibrillation 12/26/2015 Diverticulitis of large [...] of this encounter (statuses as of 01/08/2022) [facility] History of Past illness Narrative* Problem Noted Date Resolved Date Dysuria 07/06/2021 07/08/2021 Obesity, Class I, BMI 30-34.9 01/12/2021 GI bleed 01/12/2021 01/14/2021 Acute blood loss anemia 01/12/2021 01/15/20 21 LLQ pain 09/05/2017 04/09/2021 Overview: Added automatically from request for surgery [id number] Malignant neoplasm of lower- inner quadrant of right breast of female, estrogen receptor positive 06/03/2017 07/06/2021 Personal history of breast cancer 12/18/2016 04/09/2021 Overview: Added automatically from request for surgery [id number] Permanent atrial fibrillation 12/26/2015 Diverticulitis of large [...] of this encounter (statuses as of 01/21/2022) [facility] History of Past illness Narrative* Problem Noted Date Resolved Date Dysuria 07/06/2021 07/08/2021 Obesity, Class I, BMI 30-34.9 01/12/2021 GI bleed 01/12/2021 01/14/2021 Acute blood loss anemia 01/12/2021 01/15/20 21 LLQ pain 09/05/2017 04/09/2021 Overview: Added automatically from request for surgery [id number] Malignant neoplasm of lower- inner quadrant of right breast of female, estrogen receptor positive 06/03/2017 07/06/2021 Personal history of breast cancer 12/18/2016 04/09/2021 Overview: Added automatically from request for surgery [id number] Permanent atrial fibrillation 12/26/2015 Diverticulitis of large [...] of this encounter (statuses as of 02/05/2022) [facility] History of Past illness Narrative* Problem Noted Date Resolved Date Dysuria 07/06/2021 07/08/2021 Obesity, Class I, BMI 30-34.9 01/12/2021 GI bleed 01/12/2021 01/14/2021 Acute blood loss anemia 01/12/2021 01/15/20 LLQ pain 09/05/2017 04/09/2021 Overview: Added automatically from request for surgery [id number] Malignant neoplasm of lower- inner quadrant of right breast of female, estrogen receptor positive 06/03/2017 07/06/2021 Personal history of breast cancer 12/18/2016 04/09/2021 Overview: Added automatically from request for surgery [id number] Permanent atrial fibrillation 12/26/2015 Diverticulitis of large [...] of this encounter (statuses as of 03/09/2022) [facility] History of Past illness Narrative* Problem Noted Date Resolved Date Dysuria 07/06/2021 07/08/2021 Obesity, Class I, BMI 30-34.9 01/12/2021 GI bleed 01/12/2021 01/14/2021 Acute blood loss anemia 01/12/2021 01/15/20 21 LLQ pain 09/05/2017 04/09/2021 Overview: Added automatically from request for surgery [id number] Malignant neoplasm of lower- inner quadrant of right breast of female, estrogen receptor positive 06/03/2017 07/06/2021 Personal history of breast cancer 12/18/2016 04/09/2021 Overview: Added automatically from request for surgery [id number] Permanent atrial fibrillation 12/26/2015 Diverticulitis of large [...] of this encounter (statuses as of 03/17/2022) [facility] History of Past illness Narrative* Problem Noted Date Resolved Date Dysuria 07/06/2021 07/08/2021 Obesity, Class I, BMI 30-34.9 01/12/2021 GI bleed 01/12/2021 01/14/2021 Acute blood loss anemia 01/12/2021 01/15/20 21 LLQ pain 09/05/2017 04/09/2021 Overview: Added automatically from request for surgery [id number] Malignant neoplasm of lower- inner quadrant of right breast of female, estrogen receptor positive 06/03/2017 07/06/2021 Personal history of breast cancer 12/18/2016 04/09/2021 Overview: Added automatically from request for surgery [id number] Permanent atrial fibrillation 12/26/2015 Diverticulitis of large [...] of this encounter (statuses as of 03/20/2022) [facility] History of Past illness Narrative* Problem Noted Date Resolved Date Dysuria 07/06/2021 07/08/2021 Obesity, Class I, BMI 30-34.9 01/12/2021 GI bleed 01/12/2021 01/14/2021 Acute blood loss anemia 01/12/2021 01/15/20 LLQ pain 09/05/2017 04/09/2021 Overview: Added automatically from request for surgery [id number] Malignant neoplasm of lower- inner quadrant of right breast of female, estrogen receptor positive 06/03/2017 07/06/2021 Personal history of breast cancer 12/18/2016 04/09/2021 Overview: Added automatically from request for surgery [id number] Permanent atrial fibrillation 12/26/2015 Diverticulitis of large [...] of this encounter (statuses as of 03/23/2022) [facility] History of Past illness Narrative* Problem Noted Date Resolved Date Dysuria 07/06/2021 07/08/2021 Obesity, Class I, BMI 30-34.9 01/12/2021 GI bleed 01/12/2021 01/14/2021 Acute blood loss anemia 01/12/2021 01/15/20 21 LLQ pain 09/05/2017 04/09/2021 Overview: Added automatically from request for surgery [id number] Malignant neoplasm of lower- inner quadrant of right breast of female, estrogen receptor positive 06/03/2017 07/06/2021 Personal history of breast cancer 12/18/2016 04/09/2021 Overview: Added automatically from request for surgery [id number] Permanent atrial fibrillation 12/26/2015 Diverticulitis of large [...] of this encounter (statuses as of 03/23/2022) [facility] History of Past illness Narrative* Problem Noted Date Resolved Date Dysuria 07/06/2021 07/08/2021 Obesity, Class I, BMI 30-34.9 01/12/2021 GI bleed 01/12/2021 01/14/2021 Acute blood loss anemia 01/12/2021 01/15/20 21 LLQ pain 09/05/2017 04/09/2021 Overview: Added automatically from request for surgery [id number] Malignant neoplasm of lower- inner quadrant of right breast of female, estrogen receptor positive 06/03/2017 07/06/2021 Personal history of breast cancer 12/18/2016 04/09/2021 Overview: Added automatically from request for surgery [id number] Permanent atrial fibrillation 12/26/2015 Diverticulitis of large [...] of this encounter (statuses as of 03/25/2022) [facility] History of Past illness Narrative* Problem Noted Date Resolved Date Dysuria 07/06/2021 07/08/2021 Obesity, Class I, BMI 30-34.9 01/12/2021 GI bleed 01/12/2021 01/14/2021 Acute blood loss anemia 01/12/2021 01/15/20 21 LLQ pain 09/05/2017 04/09/2021 Overview: Added automatically from request for surgery [id number] Malignant neoplasm of lower- inner quadrant of right breast of female, estrogen receptor positive 06/03/2017 07/06/2021 Personal history of breast cancer 12/18/2016 04/09/2021 Overview: Added automatically from request for surgery [id number] Permanent atrial fibrillation 12/26/2015 Diverticulitis of large [...] of this encounter (statuses as of 04/08/2022) [facility] History of Past illness Narrative* Problem Noted Date Resolved Date Dysuria 07/06/2021 07/08/2021 Obesity, Class I, BMI 30-34.9 01/12/2021 GI bleed 01/12/2021 01/14/2021 Acute blood loss anemia 01/12/2021 01/15/20 21 LLQ pain 09/05/2017 04/09/2021 Overview: Added automatically from request for surgery [id number] Malignant neoplasm of lower- inner quadrant of right breast of female, estrogen receptor positive 06/03/2017 07/06/2021 Personal history of breast cancer 12/18/2016 04/09/2021 Overview: Added automatically from request for surgery [id number] Permanent atrial fibrillation 12/26/2015 Diverticulitis of large [...] of this encounter (statuses as of 04/10/2022) [facility] History of Past illness Narrative* Problem Noted Date Resolved Date Dysuria 07/06/2021 07/08/2021 Obesity, Class I, BMI 30-34.9 01/12/2021 GI bleed 01/12/2021 01/14/2021 Acute blood loss anemia 01/12/2021 01/15/20 21 LLQ pain 09/05/2017 04/09/2021 Overview: Added automatically from request for surgery [id number] Malignant neoplasm of lower- inner quadrant of right breast of female, estrogen receptor positive 06/03/2017 07/06/2021 Personal history of breast cancer 12/18/2016 04/09/2021 Overview: Added automatically from request for surgery [id number] Permanent atrial fibrillation 12/26/2015 Diverticulitis of large [...] of this encounter (statuses as of 04/12/2022) [facility] History of Past illness Narrative* Problem Noted Date Resolved Date Dysuria 07/06/2021 07/08/2021 Obesity, Class I, BMI 30-34.9 01/12/2021 GI bleed 01/12/2021 01/14/2021 Acute blood loss anemia 01/12/2021 01/15/20 LLQ pain 09/05/2017 04/09/2021 Overview: Added automatically from request for surgery [id number] Malignant neoplasm of lower- inner quadrant of right breast of female, estrogen receptor positive 06/03/2017 07/06/2021 Personal history of breast cancer 12/18/2016 04/09/2021 Overview: Added automatically from request for surgery [id number] Permanent atrial fibrillation 12/26/2015 Diverticulitis of large [...] of this encounter (statuses as of 04/15/2022) [facility] History of Past illness Narrative* Problem Noted Date Resolved Date Dysuria 07/06/2021 07/08/2021 Obesity, Class I, BMI 30-34.9 01/12/2021 GI bleed 01/12/2021 01/14/2021 Acute blood loss anemia 01/12/2021 01/15/20 21 LLQ pain 09/05/2017 04/09/2021 Overview: Added automatically from request for surgery [id number] Malignant neoplasm of lower- inner quadrant of right breast of female, estrogen receptor positive 06/03/2017 07/06/2021 Personal history of breast cancer 12/18/2016 04/09/2021 Overview: Added automatically from request for surgery [id number] Permanent atrial fibrillation 12/26/2015 Diverticulitis of large [...] of this encounter (statuses as of 04/16/2022) [facility] History of Past illness Narrative* Problem Noted Date Resolved Date Dysuria 07/06/2021 07/08/2021 Obesity, Class I, BMI 30-34.9 01/12/2021 GI bleed 01/12/2021 01/14/2021 Acute blood loss anemia 01/12/2021 01/15/20 21 LLQ pain 09/05/2017 04/09/2021 Overview: Added automatically from request for surgery [id number] Malignant neoplasm of lower- inner quadrant of right breast of female, estrogen receptor positive 06/03/2017 07/06/2021 Personal history of breast cancer 12/18/2016 04/09/2021 Overview: Added automatically from request for surgery [id number] Permanent atrial fibrillation 12/26/2015 Diverticulitis of large [...] of this encounter (statuses as of 04/16/2022) [facility] History of Past illness Narrative* Problem Noted Date Resolved Date Dysuria 07/06/2021 07/08/2021 Obesity, Class I, BMI 30-34.9 01/12/2021 GI bleed 01/12/2021 01/14/2021 Acute blood loss anemia 01/12/2021 01/15/20 21 LLQ pain 09/05/2017 04/09/2021 Overview: Added automatically from request for surgery [id number] Malignant neoplasm of lower- inner quadrant of right breast of female, estrogen receptor positive 06/03/2017 07/06/2021 Personal history of breast cancer 12/18/2016 04/09/2021 Overview: Added automatically from request for surgery [id number] Permanent atrial fibrillation 12/26/2015 Diverticulitis of large [...] of this encounter (statuses as of 04/17/2022) [facility] History of Past illness Narrative* Problem Noted Date Resolved Date Dysuria 07/06/2021 07/08/2021 Obesity, Class I, BMI 30-34.9 01/12/2021 GI bleed 01/12/2021 01/14/2021 Acute blood loss anemia 01/12/2021 01/15/20 LLQ pain 09/05/2017 04/09/2021 Overview: Added automatically from request for surgery [id number] Malignant neoplasm of lower- inner quadrant of right breast of female, estrogen receptor positive 06/03/2017 07/06/2021 Personal history of breast cancer 12/18/2016 04/09/2021 Overview: Added automatically from request for surgery [id number] Permanent atrial fibrillation 12/26/2015 Diverticulitis of large [...] of this encounter (statuses as of 04/22/2022) [facility] History of Past illness Narrative* Problem Noted Date Resolved Date Dysuria 07/06/2021 07/08/2021 Obesity, Class I, BMI 30-34.9 01/12/2021 GI bleed 01/12/2021 01/14/2021 Acute blood loss anemia 01/12/2021 01/15/20 21 LLQ pain 09/05/2017 04/09/2021 Overview: Added automatically from request for surgery [id number] Malignant neoplasm of lower- 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, estrogen receptor positive 06/03/2017 07/06/2021 Personal history of breast cancer 12/18/2016 04/09/2021 Overview: Added automatically from request for surgery [id number] Permanent atrial fibrillation 12/26/2015 Diverticulitis of large [...] of this encounter (statuses as of 05/30/2022) [facility] History of Past illness Narrative* Problem Noted Date Resolved Date Dysuria 07/06/2021 07/08/2021 Obesity, Class I, BMI 30-34.9 01/12/2021 GI bleed 01/12/2021 01/14/2021 Acute blood loss anemia 01/12/2021 01/15/20 21 LLQ pain 09/05/2017 04/09/2021 Overview: Added automatically from request for surgery [id number] Malignant neoplasm of lower- inner quadrant of right breast of female, estrogen receptor positive 06/03/2017 07/06/2021 Personal history of breast cancer 12/18/2016 04/09/2021 Overview: Added automatically from request for surgery [id number] Permanent atrial fibrillation 12/26/2015 Diverticulitis of large [...] of this encounter (statuses as of 06/07/2022) [facility] History of Past illness Narrative* Problem Noted Date Resolved Date Dysuria 07/06/2021 07/08/2021 Obesity, Class I, BMI 30-34.9 01/12/2021 GI bleed 01/12/2021 01/14/2021 Acute blood loss anemia 01/12/2021 01/15/20 21 LLQ pain 09/05/2017 04/09/2021 Overview: Added automatically from request for surgery [id number] Malignant neoplasm of lower- inner quadrant of right breast of female, estrogen receptor positive 06/03/2017 07/06/2021 Personal history of breast cancer 12/18/2016 04/09/2021 Overview: Added automatically from request for surgery [id number] Permanent atrial fibrillation 12/26/2015 Diverticulitis of large [...] of this encounter (statuses as of 06/11/2022) [facility] History of Past illness Narrative* Problem Noted Date Resolved Date Dysuria 07/06/2021 07/08/2021 Obesity, Class I, BMI 30-34.9 01/12/2021 GI bleed 01/12/2021 01/14/2021 Acute blood loss anemia 01/12/2021 01/15/20 21 LLQ pain 09/05/2017 04/09/2021 Overview: Added automatically from request for surgery [id number] Malignant neoplasm of lower- inner quadrant of right breast of female, estrogen receptor positive 06/03/2017 07/06/2021 Personal history of breast cancer 12/18/2016 04/09/2021 Overview: Added automatically from request for surgery [id number] Permanent atrial fibrillation 12/26/2015 Diverticulitis of large [...] of this encounter (statuses as of 06/18/2022) [facility] History of Past illness Narrative* Problem Noted Date Resolved Date Dysuria 07/06/2021 07/08/2021 Obesity, Class I, BMI 30-34.9 01/12/2021 GI bleed 01/12/2021 01/14/2021 Acute blood loss anemia 01/12/2021 01/15/20 21 LLQ pain 09/05/2017 04/09/2021 Overview: Added automatically from request for surgery [id number] Malignant neoplasm of lower- inner quadrant of right breast of female, estrogen receptor positive 06/03/2017 07/06/2021 Personal history of breast cancer 12/18/2016 04/09/2021 Overview: Added automatically from request for surgery [id number] Permanent atrial fibrillation 12/26/2015 Diverticulitis of large [...] of this encounter (statuses as of 08/29/2022) [facility] History of Past illness Narrative* Problem Noted Date Resolved Date Dysuria 07/06/2021 07/08/2021 Obesity, Class I, BMI 30-34.9 01/12/2021 GI bleed 01/12/2021 01/14/2021 Acute blood loss anemia 01/12/2021 01/15/20 21 LLQ pain 09/05/2017 04/09/2021 Overview: Added automatically from request for surgery [id number] Malignant neoplasm of lower- inner quadrant of right breast of female, estrogen receptor positive 06/03/2017 07/06/2021 Personal history of breast cancer 12/18/2016 04/09/2021 Overview: Added automatically from request for surgery [id number] Permanent atrial fibrillation 12/26/2015 Diverticulitis of large [...] of this encounter (statuses as of 09/05/2022) [facility] History of Past illness Narrative* Problem Noted Date Resolved Date Dysuria 07/06/2021 07/08/2021 Obesity, Class I, BMI 30-34.9 01/12/2021 GI bleed 01/12/2021 01/14/2021 Acute blood loss anemia 01/12/2021 01/15/20 LLQ pain 09/05/2017 04/09/2021 Overview: Added automatically from request for surgery [id number] Malignant neoplasm of lower- inner quadrant of right breast of female, estrogen receptor positive 06/03/2017 07/06/2021 Personal history of breast cancer 12/18/2016 04/09/2021 Overview: Added automatically from request for surgery [id number] Permanent atrial fibrillation 12/26/2015 Diverticulitis of large [...] of this encounter (statuses as of 09/20/2022) [facility] History of Past illness Narrative* Problem Noted Date Diagnosed Date Resolved Date Dysuria 07/06/2021 07/08/2021 Obesity, Class I, BMI 30-34.9 01/12/2021 04/09/2021 GI bleed 01/12/2021 01/14/2021 Acute blood loss anemia 01/12/202112/17 LLQ pain 09/05/2017 04/09/2021 Overview: Added automatically from request for surgery [id number] Malignant neoplasm of lower- inner quadrant of right breast of female, estrogen receptor positive 06/03/2017 07/06/2021 Personal history of breast cancer 12/18/2016 04/09/2021 Overview: Added automatically from request for surgery [id number] Permanent atrial fibrillation 12/26/2015 07/01/2018 Diverticulitis of [...] of this encounter (statuses as of 09/25/2022) [facility] History of Past illness Narrative* Problem Noted Date Diagnosed Date Resolved Date Dysuria 07/06/2021 07/08/2021 Obesity, Class I, BMI 30-34.9 01/12/2021 04/09/2021 GI bleed 01/12/2021 01/14/2021 Acute blood loss anemia 01/12/202112/17 LLQ pain 09/05/2017 04/09/2021 Overview: Added automatically from request for surgery [id number] Malignant neoplasm of lower- inner quadrant of right breast of female, estrogen receptor positive 06/03/2017 07/06/2021 Personal history of breast cancer 12/18/2016 04/09/2021 Overview: Added automatically from request for surgery [id number] Permanent atrial fibrillation 12/26/2015 07/01/2018 Diverticulitis of [...] of this encounter (statuses as of 10/23/2022) [facility] History of Past illness Narrative* Problem Noted Date Diagnosed Date Resolved Date Dysuria 07/06/2021 07/08/2021 Obesity, Class I, BMI 30-34.9 01/12/2021 04/09/2021 GI bleed 01/12/2021 01/14/2021 Acute blood loss anemia 01/12/202112/17 LLQ pain 09/05/2017 04/09/2021 Overview: Added automatically from request for surgery [id number] Malignant neoplasm of lower- inner quadrant of right breast of female, estrogen receptor positive 06/03/2017 07/06/2021 Personal history of breast cancer 12/18/2016 04/09/2021 Overview: Added automatically from request for surgery [id number] Permanent atrial fibrillation 12/26/2015 07/01/2018 Diverticulitis of [...] of this encounter (statuses as of 11/15/2022) [facility] History of Past illness Narrative* Problem Noted Date Diagnosed Date Resolved Date Dysuria 07/06/2021 07/08/2021 Obesity, Class I, BMI 30-34.9 01/12/2021 04/09/2021 GI bleed 01/12/2021 01/14/2021 Acute blood loss anemia 01/12/202112/17 LLQ pain 09/05/2017 04/09/2021 Overview: Added automatically from request for surgery [id number] Malignant neoplasm of lower- inner quadrant of right breast of female, estrogen receptor positive 06/03/2017 07/06/2021 Personal history of breast cancer 12/18/2016 04/09/2021 Overview: Added automatically from request for surgery [id number] Permanent atrial fibrillation 12/26/2015 07/01/2018 Diverticulitis of [...] of this encounter (statuses as of 11/26/2022) [facility] History of Past illness Narrative* Problem Noted Date Diagnosed Date Resolved Date Dysuria 07/06/2021 07/08/2021 Obesity, Class I, BMI 30-34.9 01/12/2021 04/09/2021 GI bleed 01/12/2021 01/14/2021 Acute blood loss anemia 01/12/202112/17 LLQ pain 09/05/2017 04/09/2021 Overview: Added automatically from request for surgery [id number] Malignant neoplasm of lower- inner quadrant of right breast of female, estrogen receptor positive 06/03/2017 07/06/2021 Personal history of breast cancer 12/18/2016 04/09/2021 Overview: Added automatically from request for surgery [id number] Permanent atrial fibrillation 12/26/2015 07/01/2018 Diverticulitis of [...] of this encounter (statuses as of 11/27/2022) [facility] History of Past illness Narrative* Problem Noted Date Diagnosed Date Resolved Date Dysuria 07/06/2021 07/08/2021 Obesity, Class I, BMI 30-34.9 01/12/2021 04/09/2021 GI bleed 01/12/2021 01/14/2021 Acute blood loss anemia 01/12/2021 1003/2020 LLQ pain 09/05/2017 04/09/2021 Overview: Added automatically from request for surgery [id number] Malignant neoplasm of lower- inner quadrant of right breast of female, estrogen receptor positive 06/03/2017 07/06/2021 Personal history of breast cancer 12/18/2016 04/09/2021 Overview: Added automatically from request for surgery [id number] Permanent atrial fibrillation 12/26/2015 07/01/2018 Diverticulitis of [...] of this encounter (statuses as of 12/14/2022) [facility] History of Past illness Narrative* Problem Noted Date Diagnosed Date Resolved Date Dysuria 07/06/2021 07/08/2021 Obesity, Class I, BMI 30-34.9 01/12/2021 04/09/2021 GI bleed 01/12/2021 01/14/2021 Acute blood loss anemia 01/12/202112/17 LLQ pain 09/05/2017 04/09/2021 Overview: Added automatically from request for surgery [id number] Malignant neoplasm of lower- inner quadrant of right breast of female, estrogen receptor positive (HCC) 06/03/2017 07/06/2021 Personal history of breast cancer 12/18/2016 04/09/2021 Overview: Added automatically from request for surgery [id number] Permanent atrial fibrillation 12/26/2015 07/01/2018 Diverticulitis of [...] few months, it was started by Dr. Meirno on recommendation of Dr. Angeline nath documented as of this encounter (statuses as of 12/18/2022) [facility] History of Past illness Narrative* Problem Noted Date Diagnosed Date Resolved Date Dysuria 07/06/2021 07/08/2021 Obesity, Class I, BMI 30-34.9 01/12/2021 04/09/2021 GI bleed 01/12/2021 01/14/2021 Acute blood loss anemia 01/12/202112/17 LLQ pain 09/05/2017 04/09/2021 Overview: Added automatically from request for surgery [id number] Malignant neoplasm of lower- inner quadrant of right breast of female, estrogen receptor positive (HCC) 06/03/2017 07/06/2021 Personal history of breast cancer 12/18/2016 04/09/2021 Overview: Added automatically from request for surgery [id number] Permanent atrial fibrillation 12/26/2015 07/01/2018 Diverticulitis of [...] of this encounter (statuses as of 12/21/2022) [facility] History of Past illness Narrative* Problem Noted Date Diagnosed Date Resolved Date Dysuria 07/06/2021 07/08/2021 Obesity, Class I, BMI 30-34.9 01/12/2021 04/09/2021 GI bleed 01/12/2021 01/14/2021 Acute blood loss anemia 01/12/202112/17 LLQ pain 09/05/2017 04/09/2021 Overview: Added automatically from request for surgery [id number] Malignant neoplasm of lower- inner quadrant of right breast of female, estrogen receptor positive (HCC) 06/03/2017 07/06/2021 Personal history of breast cancer 12/18/2016 04/09/2021 Overview: Added automatically from request for surgery [id number] Permanent atrial fibrillation 12/26/2015 07/01/2018 Diverticulitis of [...] of this encounter (statuses as of 01/14/2023) [facility] History of Past illness Narrative* Problem Noted Date Diagnosed Date Resolved Date Dysuria 07/06/2021 07/08/2021 Obesity, Class I, BMI 30-34.9 01/12/2021 04/09/2021 GI bleed 01/12/2021 01/14/2021 Acute blood loss anemia 01/12/202112/17 LLQ pain 09/05/2017 04/09/2021 Overview: Added automatically from request for surgery [id number] Malignant neoplasm of lower- inner quadrant of right breast of female, estrogen receptor positive 06/03/2017 07/06/2021 Personal history of breast cancer 12/18/2016 04/09/2021 Overview: Added automatically from request for surgery [id number] Permanent atrial fibrillation 12/26/2015 07/01/2018 Diverticulitis of [...] of this encounter (statuses as of 01/19/2023) [facility] History of Past illness Narrative* Problem Noted Date Diagnosed Date Resolved Date Dysuria 07/06/2021 07/08/2021 Obesity, Class I, BMI 30-34.9 01/12/2021 04/09/2021 GI bleed 01/12/2021 01/14/2021 Acute blood loss anemia 01/12/202112/17 LLQ pain 09/05/2017 04/09/2021 Overview: Added automatically from request for surgery [id number] Malignant neoplasm of lower- inner quadrant of right breast of female, estrogen receptor positive 06/03/2017 07/06/2021 Personal history of breast cancer 12/18/2016 04/09/2021 Overview: Added automatically from request for surgery [id number] Permanent atrial fibrillation 12/26/2015 07/01/2018 Diverticulitis of [...] of this encounter (statuses as of 01/19/2023) [facility] History of Past illness Narrative* Problem Noted Date Diagnosed Date Resolved Date Dysuria 07/06/2021 07/08/2021 Obesity, Class I, BMI 30-34.9 01/12/2021 04/09/2021 GI bleed 01/12/2021 01/14/2021 Acute blood loss anemia 01/12/202112/17 LLQ pain 09/05/2017 04/09/2021 Overview: Added automatically from request for surgery [id number] Malignant neoplasm of lower- inner quadrant of right breast of female, estrogen receptor positive (HCC) 06/03/2017 07/06/2021 Personal history of breast cancer 12/18/2016 04/09/2021 Overview: Added automatically from request for surgery [id number] Permanent atrial fibrillation 12/26/2015 07/01/2018 Diverticulitis of [...] ELEVATED SGPT 01/21/2006 02/17/2012 SEBORRHEIC KERATOSES 11/25/2005 12/03/2 012 ACTINIC DAMAGE//CHR SOLAR SKIN DAMAGE NOS [...] of this encounter (statuses as of 02/12/2023) [facility] History of Past illness Narrative* Problem Noted Date Diagnosed Date Resolved Date Dysuria 07/06/2021 07/08/2021 Obesity, Class I, BMI 30-34.9 01/12/2021 04/09/2021 GI bleed 01/12/2021 01/14/2021 Acute blood loss anemia 01/12/2021 10/03/2020 LLQ pain 09/05/2017 04/09/2021 Overview: Added automatically from request for surgery [id number] Malignant neoplasm of lower- inner quadrant of right breast of female, estrogen receptor positive (HCC) 06/03/2017 07/06/2021 Personal history of breast cancer 12/18/2016 04/09/2021 Overview: Added automatically from request for surgery [id number] Permanent atrial fibrillation 12/26/2015 07/01/2018 Diverticulitis of [...] of this encounter (statuses as of 04/25/2023) [facility] History of Past illness Narrative* Problem Noted Date Diagnosed Date Resolved Date Dysuria 07/06/2021 07/08/2021 Obesity, Class I, BMI 30-34.9 01/12/2021 04/09/2021 GI bleed 01/12/2021 01/14/2021 Acute blood loss anemia 01/12/2021 10/03/2020 LLQ pain 09/05/2017 04/09/2021 Overview: Added automatically from request for surgery [id number] Malignant neoplasm of lower- inner quadrant of right breast of female, estrogen receptor positive (HCC) 06/03/2017 07/06/2021 Personal history of breast cancer 12/18/2016 04/09/2021 Overview: Added automatically from request for surgery [id number] Permanent atrial fibrillation 12/26/2015 07/01/2018 Diverticulitis of [...] of this encounter (statuses as of 04/30/2023) [facility] History of Past illness Narrative* Problem Noted Date Diagnosed Date Resolved Date Dysuria 07/06/2021 07/08/2021 Obesity, Class I, BMI 30-34.9 01/12/2021 04/09/2021 GI bleed 01/12/2021 01/14/2021 Acute blood loss anemia 01/12/202112/17 LLQ pain 09/05/2017 04/09/2021 Overview: Added automatically from request for surgery [id number] Malignant neoplasm of lower- inner quadrant of right breast of female, estrogen receptor positive 06/03/2017 07/06/2021 Personal history of breast cancer 12/18/2016 04/09/2021 Overview: Added automatically from request for surgery [id number] Permanent atrial fibrillation 12/26/2015 07/01/2018 Diverticulitis of [...] of this encounter (statuses as of 05/19/2023) [facility] History of Past illness Narrative* Problem Noted Date Diagnosed Date Resolved Date Dysuria 07/06/2021 07/08/2021 Obesity, Class I, BMI 30-34.9 01/12/2021 04/09/2021 GI bleed 01/12/2021 01/14/2021 Acute blood loss anemia 01/12/202112/17 LLQ pain 09/05/2017 04/09/2021 Overview: Added automatically from request for surgery [id number] Malignant neoplasm of lower- inner quadrant of right breast of female, estrogen receptor positive 06/03/2017 07/06/2021 Personal history of breast cancer 12/18/2016 04/09/2021 Overview: Added automatically from request for surgery [id number] Permanent atrial fibrillation 12/26/2015 07/01/2018 Diverticulitis of [...] of this encounter (statuses as of 06/07/2023) [facility] History of Past illness Narrative* Problem Noted Date Diagnosed Date Resolved Date Dysuria 07/06/2021 07/08/2021 Obesity, Class I, BMI 30-34.9 01/12/2021 04/09/2021 GI bleed 01/12/2021 01/14/2021 Acute blood loss anemia 01/12/202112/17 LLQ pain 09/05/2017 04/09/2021 Overview: Added automatically from request for surgery [id number] Malignant neoplasm of lower- inner quadrant of right breast of female, estrogen receptor positive 06/03/2017 07/06/2021 Personal history of breast cancer 12/18/2016 04/09/2021 Overview: Added automatically from request for surgery [id number] Permanent atrial fibrillation 12/26/2015 07/01/2018 Diverticulitis of [...] of this encounter (statuses as of 06/10/2023) [facility] History of Past illness Narrative* Problem Noted Date Diagnosed Date Resolved Date Dysuria 07/06/2021 07/08/2021 Obesity, Class I, BMI 30-34.9 01/12/2021 04/09/2021 GI bleed 01/12/2021 01/14/2021 Acute blood loss anemia 01/12/202112/17 LLQ pain 09/05/2017 04/09/2021 Overview: Added automatically from request for surgery [id number] Malignant neoplasm of lower- inner quadrant of right breast of female, estrogen receptor positive 06/03/2017 07/06/2021 Personal history of breast cancer 12/18/2016 04/09/2021 Overview: Added automatically from request for surgery [id number] Permanent atrial fibrillation 12/26/2015 07/01/2018 Diverticulitis of [...] of this encounter (statuses as of 06/17/2023) [facility] History of Past illness Narrative* Problem Noted Date Diagnosed Date Resolved Date Dysuria 07/06/2021 07/08/2021 Obesity, Class I, BMI 30-34.9 01/12/2021 04/09/2021 GI bleed 01/12/2021 01/14/2021 Acute blood loss anemia 01/12/202112/17 LLQ pain 09/05/2017 04/09/2021 Overview: Added automatically from request for surgery [id number] Malignant neoplasm of lower- inner quadrant of right breast of female, estrogen receptor positive 06/03/2017 07/06/2021 Personal history of breast cancer 12/18/2016 04/09/2021 Overview: Added automatically from request for surgery [id number] Permanent atrial fibrillation 12/26/2015 07/01/2018 Diverticulitis of [...] of this encounter (statuses as of 06/18/2023) [facility] History of Past illness Narrative* Problem Noted Date Diagnosed Date Resolved Date Dysuria 07/06/2021 07/08/2021 Obesity, Class I, BMI 30-34.9 01/12/2021 04/09/2021 GI bleed 01/12/2021 01/14/2021 Acute blood loss anemia 01/12/2021 10/03/2020 LLQ pain 09/05/2017 04/09/2021 Overview: Added automatically from request for surgery [id number] Malignant neoplasm of lower- inner quadrant of right breast of female, estrogen receptor positive 06/03/2017 07/06/2021 Personal history of breast cancer 12/18/2016 04/09/2021 Overview: Added automatically from request for surgery [id number] Permanent atrial fibrillation 12/26/2015 07/01/2018 Diverticulitis of [...] of this encounter (statuses as of 06/19/2023) [facility] History of Past illness Narrative* Problem Noted Date Diagnosed Date Resolved Date Dysuria 07/06/2021 07/08/2021 Obesity, Class I, BMI 30-34.9 01/12/2021 04/09/2021 GI bleed 01/12/2021 01/14/2021 Acute blood loss anemia 01/12/202112/17 LLQ pain 09/05/2017 04/09/2021 Overview: Added automatically from request for surgery [id number] Malignant neoplasm of lower- inner quadrant of right breast of female, estrogen receptor positive 06/03/2017 07/06/2021 Personal history of breast cancer 12/18/2016 04/09/2021 Overview: Added automatically from request for surgery [id number] Permanent atrial fibrillation 12/26/2015 07/01/2018 Diverticulitis of [...] of this encounter (statuses as of 07/01/2023) [place] [address]-22-2022 History of Past illness Narrative* Problem Noted Date Diagnosed Date Resolved Date Dysuria 07/06/2021 07/08/2021 Obesity, Class I, BMI 30-34.9 01/12/2021 04/09/2021 GI bleed 01/12/2021 01/14/2021 Acute blood loss anemia 01/12/202112/17 LLQ pain 09/05/2017 04/09/2021 Overview: Added automatically from request for surgery [id number] Malignant neoplasm of lower- inner quadrant of right breast of female, estrogen receptor positive 06/03/2017 07/06/2021 Personal history of breast cancer 12/18/2016 04/09/2021 Overview: Added automatically from request for surgery [id number] Permanent atrial fibrillation 12/26/2015 07/01/2018 Diverticulitis of [...] of this encounter (statuses as of 07/02/2023) [facility] History of Past illness Narrative* Problem Noted Date Diagnosed Date Resolved Date Dysuria 07/06/2021 07/08/2021 Obesity, Class I, BMI 30-34.9 01/12/2021 04/09/2021 GI bleed 01/12/2021 01/14/2021 Acute blood loss anemia 01/12/202112/17 LLQ pain 09/05/2017 04/09/2021 Overview: Added automatically from request for surgery [id number] Malignant neoplasm of lower- inner quadrant of right breast of female, estrogen receptor positive 06/03/2017 07/06/2021 Personal history of breast cancer 12/18/2016 04/09/2021 Overview: Added automatically from request for surgery [id number] Permanent atrial fibrillation 12/26/2015 07/01/2018 Diverticulitis of [...] of this encounter (statuses as of 07/04/2023) [facility] Miscellaneous Notes* Telephone Encounter - Coreen Concepcion MD - 07/06/2021 12:10 PM EDT Had spoken to Dr. Turk regarding her plan- ERCP with prophylactic sphincterotomy and [facility]. Unfortunately she will likely become obstructed regardless of ERCP because of this 3.3 cm stone. Called patient's daughter (patient did not answer), patient is currently in Emergency department with worsening pain, fevers. Will likely be admitted, high concern for biliary obstruction. 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 Mcnairy underwent a CT scan. These tests demonstrated [...] had black tarry stools and presented to [facility] for post polypectomy bleed. At the time [...] opinions from the recent CT scan at [facility] versus the prior scan, I elected to obtain an ultrasound and repeat laboratory studies. The CT scan from [facility] was supposed to be loaded into [...] - 99 mg/dL Final The [place] Diabetes Association (ADA) provides guidance for cutoff [...] Medical Care in Diabetes 2016, [place] Diabetes Association. Diabetes Care. 2016.39(Suppl 1). BUN [...] addended to a previously final verified report. [place]% 07/05/2021 14.0 % Final This is an addended report. These results have been addended to a previously final verified report. Abs [place] 07/05/2021 1.22 (A) <0.87 k/uL Final This [...] Referred by noted on Friday to her cooperative education coordinator. She question whether the patient truly had [...] HX TONSILLECTOMY PRIMARY/SECONDARY <AGE [age] Tonsillectomy CURRENT MEDICATIONS: Current Outpatient Medications Medication [...] mouth once daily. Taking 1000 glucosamine/msm/chondroitin A (TFXPAWVNMTA-GVJRXQ-SJU ORAL) Take 1 capsule by mouth once [...] (98.6 F), height 167.6 cm (5' 6"), doapym58.8 kg (176 lb), SpO2 100 %. Body [...] to have her CT scan images from [facility] loaded in the [facility] system and compare this to the [...] needed. Johnny Turk MD documented in this encounterKind[facility]04-[facility] Miscellaneous Notes* Telephone Encounter - Bernie Aguilar LPN - 07/05/2021 4:38 PM EDT Eloisa notified, verbalized understanding. Eloisa states that patient will be admitted into [facility] tomorrow. Just an FYI * Telephone Encounter - Ambar Negrete APRN.REAL ESTATE OFFICE SUPERVISOR - 07/05/2021 3:35 PM EDT PCP Galina Iraheta MD Seen by Alma Ta 07/03/2021. Seen by Dr Turk today for abdominal pain / gallstones. Please let her know short term norco provided. PDMP website checked and validated. All prescriptions have been APPROPRIATELY filled. No suspiciousactivity was identified. 07/05/2021 by Ambar Negrete APRN.REAL ESTATE OFFICE SUPERVISOR * Telephone Encounter - Aliyah Oliva LPN [...] term for pain? Pt uses [facility] in [place]. Please call daughter Eloisa to notify her. Eloisa also asking for message to go to Dr Turk since pt was seen by him today. Aliyah Oliva LPN documented in this encounter[facility]04[facility] History of Present illness Narrative* Alma Ta APRN.INGE - 07/03/2021 12:15 PM EDT CC: Patient [...] mouth once daily. Taking 1000 glucosamine/msm/chondroitin A (XCBSNBYSIQR-OAXSEI-IZN ORAL) Take 1 capsule by mouth once [...] abdominal tenderness DATA REVIEWED: Outside chart from [facility] ER reviewed. ASSESSMENT/PLAN: 1. Dysuria - ICD9: 788.1, ICD10: R30.0 (primary diagnosis) Chronic. Urine cultures negative for UTI and no improvement with antibiotics. Differentials includeyeast infection, atrophic vaginitis, interstitial cystitis Start Diflucan for possible yeast infection Follow-up with DISABILITY COUNSELOR as scheduled next week and discuss further [...] plan. Alma Ta APRN.CNP documented in this encounterKind[facility]04-19-2022 Miscellaneous Notes* Telephone Encounter - Madonna Dickson LPN - 07/03/2021 11:01 AM EDT Called [facility] medical records to fax ER visit from 07/02/21 . * Telephone Encounter - Madonna Dickson LPN - 07/03/2021 8:59 AM EDT Patient called wants to talk to Dr Turk, was in [facility] ER last night 07/02/21, [place] wanted to do surgery on gallbladder, patient declined, states wants to f/up with Dr Turk before proceeding. Please advise. [phone] documented in this encounterKind[facility]04-08-2022 Miscellaneous Notes* Telephone Encounter - Corinna Arenas [facility] - 06/22/2021 10:16 AM EDT [facility] Anticoagulation Episode Summary Anticoagulation Care Providers Provider Role Specialty Phone number Galina Iraheta MD Responsible Internal Medicine [phone] Christian Landrum is a 85 year old [...] * Unknown Zestril [Lisinopril] Indication for Warfarin: intermission coordinator (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 anticoagulants Paroxysmal atrial fibrillation (hcc) Anticoagulation Episode Summary Current INR goal: 2.0-3.0 Assessment: INR result of 2.1 is therapeutic Plan: Sent Revel Touch message Advised patient to continue current weekly dose Next home INR check scheduled on 07/06/2021 Corinna Arenas RPh Clinical Pharmacist, Pharmacy Anticoagulation Clinic Pharmacy Anticoagulation Clinic Pager: [phone] . documented in this encounterKindred Healthcare04-06-2022 Miscellaneous Notes* Telephone Encounter - Jerrica Rothman RPh - 06/20/2021 4:55 PM EDT Patient was due to test INR today will continue to monitor for results. Jerrica Rothman PharmD documented in this encounterKind[facility]04-05-2022 Miscellaneous Notes* Telephone Encounter - Page Palmer [...] visit. Basilia Cueto APRN.CNP documented in this encounterKindred [facility]03-[facility] History of Present illness Narrative* Aby Bruner DO - 06/05/2021 11:00 AM EDT This office note has been dictated. Aby Bruner DO documented in this encounterKind[facility]03-[facility]22 History of Present illness Narrative* Mercy Ridley RT(R) - 05/17/2021 5:46 PM EST Radiology Service [...] IV DATA: Not applicable SIGNED BY: RT Sahra([place]) May 17, 2021 5:46 PM documented in this encounterKind[facility] Healthcare11-30-2021 Miscellaneous Notes* Telephone Encounter - Galina Solorzano [...] Are you able to send refills to [facility]? Please advise patient. documented in this encounterKind[facility]10-31-2021 NoteHNO ID: [id number] Author: Johnny Turk MD Service: General Surgery [...] VTE Prophylaxis/Anticoagulants 01/12/211999 activity - mobilize patient (tx,ak) VTE Prophylaxis: VTE prophylaxis appropriate SIGNATURE: Johnny Turk MD PATIENT NAME: Christian Landrum DATE: January 14, 2021 TIME: 12:07 PMUpper [facility] Medical [id number] NoteHNO ID: [id number] Author: Wendy Bonilla DO Service: Hospital Medicine Author Type: Physician Type: Progress Notes Filed: 01/13/2021 4:03 PM Note Text: DEPARTMENT OF HOSPITAL MEDICINE PROGRESS NOTE SERVICE DATE: 01/13/2021 SERVICE TIME: 3:50 PM Hospital Medicine/Primary Attending: Wendy Bonilla DO NIGHT AND WEEKEND COVERAGE: ROTAN COVERAGE: Days: [phone], please page attending physician. Nights: [phone], please page [facility] Night coverage pager [phone]. Subjective INTERVAL HPI: feels well today. No [...] fatty liver in the past. Also on prison methotrexate. Noted positive Hepatitis B core ab I ordered the rest of the hepatitis serologies her Physical Therapy Assistant Instructor recommended and she will need to f/u with GI outpatient Endometrial thickening on ultrasound Obtain transvaginal US If thickened endometrium then she needs to see (more content not included)... [facility] [id number] NoteHNO ID: [id number] Author: Kamila Rodrigues, CLIFFORD Service: Radiology Author Type: Clinical Electron Microscopist Type: Progress Notes Filed: 01/12/2021 4:19 PM [...] Landrum DATE: January 12, 2021 TIME: 4:06 [id number] History of Past illness Narrative* Problem Noted Date Resolved Date Obesity, Class I, BMI 30-34.9 01/12/2021 GI bleed 01/12/2021 01/14/2021 Acute blood loss anemia 01/12/2021 01/15/20 21 LLQ pain 09/05/2017 04/09/2021 Overview: Added automatically from request for surgery [id number] Personal history of breast cancer 12/18/2016 04/09/2021 Overview: Added automatically from request for surgery [id number] Permanent atrial fibrillation 12/26/2015 Diverticulitis of large [...] of this encounter (statuses as of 06/05/2021) [facility] History of Past illness Narrative* Problem Noted Date Resolved Date Obesity, Class I, BMI 30-34.9 01/12/2021 GI bleed 01/12/2021 01/14/2021 Acute blood loss anemia 01/12/2021 01/15/20 21 LLQ pain 09/05/2017 04/09/2021 Overview: Added automatically from request for surgery [id number] Personal history of breast cancer 12/18/2016 04/09/2021 Overview: Added automatically from request for surgery [id number] Permanent atrial fibrillation 12/26/2015 Diverticulitis of large [...] of this encounter (statuses as of 06/19/2021) [facility] History of Past illness Narrative* Problem Noted Date Resolved Date Obesity, Class I, BMI 30-34.9 01/12/2021 GI bleed 01/12/2021 01/14/2021 Acute blood loss anemia 01/12/2021 01/15/20 21 LLQ pain 09/05/2017 04/09/2021 Overview: Added automatically from request for surgery [id number] Personal history of breast cancer 12/18/2016 04/09/2021 Overview: Added automatically from request for surgery [id number] Permanent atrial fibrillation 12/26/2015 Diverticulitis of large [...] of this encounter (statuses as of 06/22/2021) [facility] History of Past illness Narrative* Problem Noted Date Resolved Date Obesity, Class I, BMI 30-34.9 01/12/2021 GI bleed 01/12/2021 01/14/2021 Acute blood loss anemia 01/12/2021 01/15/20 21 LLQ pain 09/05/2017 04/09/2021 Overview: Added automatically from request for surgery [id number] Personal history of breast cancer 12/18/2016 04/09/2021 Overview: Added automatically from request for surgery [id number] Permanent atrial fibrillation 12/26/2015 Diverticulitis of large [...] of this encounter (statuses as of 06/26/2021) [facility] History of Past illness Narrative* Problem Noted Date Resolved Date Obesity, Class I, BMI 30-34.9 01/12/2021 GI bleed 01/12/2021 01/14/2021 Acute blood loss anemia 01/12/2021 01/15/20 21 LLQ pain 09/05/2017 04/09/2021 Overview: Added automatically from request for surgery [id number] Personal history of breast cancer 12/18/2016 04/09/2021 Overview: Added automatically from request for surgery [id number] Permanent atrial fibrillation 12/26/2015 Diverticulitis of large [...] of this encounter (statuses as of 07/03/2021) [facility] History of Past illness Narrative* Problem Noted Date Resolved Date Obesity, Class I, BMI 30-34.9 01/12/2021 GI bleed 01/12/2021 01/14/2021 Acute blood loss anemia 01/12/2021 01/15/20 21 LLQ pain 09/05/2017 04/09/2021 Overview: Added automatically from request for surgery [id number] Personal history of breast cancer 12/18/2016 04/09/2021 Overview: Added automatically from request for surgery [id number] Permanent atrial fibrillation 12/26/2015 Diverticulitis of large [...] of this encounter (statuses as of 07/05/2021) [facility] History of Past illness Narrative* Problem Noted Date Resolved Date Obesity, Class I, BMI 30-34.9 01/12/2021 GI bleed 01/12/2021 01/14/2021 Acute blood loss anemia 01/12/2021 01/15/20 LLQ pain 09/05/2017 04/09/2021 Overview: Added automatically from request for surgery [id number] Personal history of breast cancer 12/18/2016 04/09/2021 Overview: Added automatically from request for surgery [id number] Permanent atrial fibrillation 12/26/2015 Diverticulitis of large [...] of this encounter (statuses as of 07/05/2021) [facility] History of Past illness Narrative* Problem Noted Date Resolved Date Obesity, Class I, BMI 30-34.9 01/12/2021 GI bleed 01/12/2021 01/14/2021 Acute blood loss anemia 01/12/2021 01/15/20 LLQ pain 09/05/2017 04/09/2021 Overview: Added automatically from request for surgery [id number] Personal history of breast cancer 12/18/2016 04/09/2021 Overview: Added automatically from request for surgery [id number] Permanent atrial fibrillation 12/26/2015 Diverticulitis of large [...] of this encounter (statuses as of 07/06/2021) [facility] NoteHNO ID: [id number] Author: ANIKET Martin Service: Radiology Author Type: Clinical Electron Microscopist Type: Progress Notes Filed: 01/10/2021 10:31 AM [...] STATUS: Discontinued PROCEDURE TYPE: NM Stress: 12.1mCi [id number] was administered IV for Rest Imaging at 9:05 by ANIKET Martin. 31.2 mCi [id number] was administered IV for Stress Imaging at 10:02 by ANIKET Martin. PATIENT DISCHARGED TO: Ambulatory patient, left [place] department area. A Diagnostic radioactive procedure has taken place, with no further precautions necessary other than routine body substance precautions. More information regarding radiation safety can be found using this link: [email or web address] SIGNATURE: ANIKET Martin PATIENT NAME: Christian Landrum DATE: January 10, 2021 TIME: 10:30 AM PAGER/CONTACT #:[facility] [id number] History of Present illness Narrative* Gladis Beltran [...] IV DATA: Not applicable SIGNED BY: RT Stanley([place]ma) November 27, 2020 4:17 PM documented in this encounterKindred Healthcare02-19-2021 History of Present illness Narrative* Gladis Beltran)Karri [...] 05, 2020 2:54 PM [facility] Diagnosis Venous (peripheral) insufficiency- Primary Unspecified venous (peripheral) insufficiency documented in this [facility] note* Diagnosis nursing home (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 anticoagulants Long-term (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 anticoagulants Paroxysmal atrial fibrillation (HCC) Atrial fibrillation documented in this encounter [facility] note* Diagnosis Malignant neoplasm of lower-inner quadrant 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, estrogen receptor positive (HCC)- Primary documented in this encounter [facility] noteNo assessment information availableWHolzer Health System Work Phone: Evaluation note* Diagnosis Dysuria- Primary Right upper quadrant abdominal pain Abdominal pain, right upper quadrant Chronic anticoagulation Long-term (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 anticoagulants documented in this encounter [facility] note* Diagnosis Polymyalgia rheumatica (HCC)- Primary Polymyalgia rheumatica documented in this encounter [facility] note* Diagnosis Calculus of gallbladder without cholecystitis without obstruction- Primary Calculus of gallbladder without mention of cholecystitis or obstruction Secondary biliary cirrhosis (HCC) Biliary cirrhosis documented in this encounter [facility] note* Diagnosis Malignant neoplasm of lower-inner quadrant of right breast of female, estrogen receptor positive (HCC)- Primary [facility]* Diagnosis nursing home (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 anticoagulants Long-term (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 anticoagulants Paroxysmal atrial fibrillation (HCC) Atrial fibrillation documented in this encounter [facility] note* Diagnosis History of recent hospitalization- Primary Personal history of unspecified disease Dysuria Recurrent UTI Urinary tract infection, site not specified Cirrhosis of liver with ascites, unspecified hepatic cirrhosis type (HCC) Biliary colic Calculus of gallbladder without mention of cholecystitis or obstruction [facility]* Diagnosis Dysuria- Primary [facility]* Diagnosis intermission coordinator (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 anticoagulants Long-term (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 anticoagulants Paroxysmal atrial fibrillation (HCC) Atrial fibrillation [facility]* Diagnosis Acute cystitis without hematuria- Primary Acute cystitis PMB (postmenopausal bleeding) Postmenopausal bleeding Endometrial thickening on ultrasound documented in this encounter [facility] note* Diagnosis nursing home (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 anticoagulants Long-term (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 anticoagulants Paroxysmal atrial fibrillation (HCC) Atrial fibrillation [facility]* Diagnosis Onset Date Resolution Status Endometrial thickening on ultrasound acute PMB (postmenopausal bleeding) acute History of diverticulitis of colon [facility] Work Phone: Evaluation note* Diagnosis PMB (postmenopausal bleeding)- Primary Postmenopausal bleeding Endometrial thickening on ultrasound documented in this encounter [facility] note* Diagnosis Old laceration of cervix uteri- Primary Old laceration of cervix Abnormal uterine bleeding (AUB) documented in this encounter [facility] note* Diagnosis Recurrent UTI- Primary Urinary tract infection, site not specified Mixed stress and urge urinary incontinence Mixed incontinence urge and stress (male)(female) Old laceration of cervix uteri Old laceration of cervix [facility]* Diagnosis nursing home (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 anticoagulants Long-term (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 anticoagulants Paroxysmal atrial fibrillation (HCC) Atrial fibrillation [facility]* Diagnosis Paroxysmal atrial fibrillation (HCC)- Primary Atrial fibrillation Rheumatic mitral regurgitation Rheumatic mitral insufficiency Essential hypertension Unspecified essential hypertension Mixed hyperlipidemia Hyperglycemia Other abnormal glucose PAF (paroxysmal atrial fibrillation) (HCC) Atrial fibrillation Shortness of breath SVT (supraventricular tachycardia) (HCC) Other specified cardiac dysrhythmias [facility]* Diagnosis Old laceration of cervix uteri- Primary Old laceration of cervix [facility]* Diagnosis Malignant neoplasm of lower-inner quadrant of right breast of female, estrogen receptor positive (HCC)- Primary [facility]* Diagnosis Malignant neoplasm of lower-inner quadrant of right breast of female, estrogen receptor positive (HCC)- Primary [facility]* Diagnosis Recurrent UTI- Primary Urinary tract infection, site not specified History of ESBL E. coli infection Personal history of other infectious and parasitic disease Mixed stress and urge urinary incontinence Mixed incontinence urge and stress (male)(female) [facility]* Diagnosis Recurrent UTI Urinary tract infection, site not specified History of ESBL E. coli infection Personal history of other infectious and parasitic disease [facility]* Diagnosis Chronic anticoagulation- Primary Long-term (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 anticoagulants documented in this encounter [facility] note* Diagnosis Malignant neoplasm of lower-inner quadrant of right breast of female, estrogen receptor positive (HCC)- Primary Chronic anticoagulation Long-term (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 anticoagulants [facility] [facility] Diagnosis nursing home (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 anticoagulants Long-term (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 anticoagulants Paroxysmal atrial fibrillation (HCC) Atrial fibrillation [facility]* Diagnosis Onset Date Resolution Status History of diverticulitis of colon chronic Endometrial thickening on ultrasound resolved PMB (postmenopausal bleeding) resolved [facility] Work Phone: Evaluation note* Diagnosis BRBPR (bright red blood per rectum)- Primary Hemorrhage of rectum and anus intermission coordinator (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 anticoagulants Long-term (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 anticoagulants Paroxysmal atrial fibrillation (HCC) Atrial fibrillation documented [facility] Diagnosis nursing home (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 anticoagulants Long-term (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 anticoagulants Paroxysmal atrial fibrillation (HCC) Atrial fibrillation [facility] Diagnosis Malignant neoplasm of lower-inner quadrant of right breast of female, estrogen receptor positive (HCC)- Primary documented [facility] this [facility]* Diagnosis Malignant neoplasm of [...] blood loss (chronic) [facility] Diagnosis Iron deficiency anemia due [...] receptor positive (HCC) [facility] Diagnosis Personal history of breast cancer Personal history of malignant neoplasm of breast Rib pain on right side Chest pain, unspecified [facility] Diagnosis Pain in right wrist Pain in joint, forearm [facility] Diagnosis Personal history of breast cancer- Primary Personal history of malignant neoplasm of breast 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 blood loss (chronic) [facility] Diagnosis Malignant neoplasm of lower-inner quadrant of right breast of female, estrogen receptor positive (HCC)- Primary 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 blood loss (chronic) [facility] Diagnosis On prednisone therapy Screening for osteoporosis Special screening for osteoporosis [facility] Diagnosis Primary osteoarthritis of both knees- Primary Primary localized osteoarthrosis, lower leg [facility] Diagnosis Rheumatic mitral regurgitation- Primary Rheumatic mitral insufficiency Paroxysmal atrial fibrillation (HCC) Atrial fibrillation Essential hypertension Unspecified essential hypertension Obstructive sleep apnea syndrome Obstructive sleep apnea (adult) (pediatric) Mixed hyperlipidemia Shortness of breath SVT (supraventricular tachycardia) ([facility]) Other specified cardiac dysrhythmias [facility] Diagnosis Chronic pain of left knee- Primary Pain in joint, lower leg Primary osteoarthritis of both knees Primary localized osteoarthrosis, lower leg [facility] Diagnosis Primary osteoarthritis of both knees Primary localized osteoarthrosis, lower leg [facility] Diagnosis Primary osteoarthritis of both knees- Primary Primary localized osteoarthrosis, lower leg [facility] Diagnosis Rheumatoid arthritis involving multiple sites, unspecified whether rheumatoid factor present (HCC)- Primary Osteopenia of multiple sites Medication monitoring encounter Encounter for therapeutic drug monitoring Long-term use of Plaquenil Encounter for long-term (current) use of other medications Platelets decreased (HCC) Thrombocytopenia, unspecified [facility] Diagnosis Recurrent UTI- Primary Urinary tract infection, site not specified Vaginal atrophy Postmenopausal atrophic vaginitis [facility] Diagnosis 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, unspecified laterality (HCC)- Primary [facility] Diagnosis Rheumatoid arthritis involving multiple sites with positive rheumatoid factor (HCC)- Primary Iron deficiency Iron deficiency anemia, unspecified [facility] Diagnosis Malignant neoplasm of lower-inner quadrant of right breast of female, estrogen receptor positive (HCC)- Primary 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 blood loss (chronic) documented [facility] Diagnosis Rheumatoid arthritis involving multiple sites with positive rheumatoid factor (HCC)- Primary [facility] Diagnosis Rheumatoid arthritis involving multiple sites with positive rheumatoid factor (HCC)- Primary [facility] Diagnosis Rheumatoid arthritis of multiple sites [...] therapeutic drug monitoring documented [facility]* Diagnosis Rheumatoid arthritis of multiple sites [...] deficiency anemia, unspecified documented [facility] Diagnosis Rheumatoid arthritis of multiple sites [...] deficiency anemia, unspecified documented [facility]* Diagnosis Rheumatoid arthritis of multiple sites [...] factor (HCC)- Primary [facility] Diagnosis Rheumatoid arthritis of [...] Senile osteoporosis- Primary documented in this encounter [facility] note* Diagnosis Rheumatoid arthritis of multiple [...] cardiac dysrhythmias Cough [facility] Diagnosis Rheumatoid arthritis of [...] unspecified fever cause documented [facility] this [facility]* Diagnosis Rheumatoid arthritis of multiple sites [...] Chronic cough Cough documented in this encounter [facility] note* Diagnosis Rheumatoid arthritis of multiple [...] factor (HCC)- Primary [facility] Diagnosis Rheumatoid arthritis of multiple sites [...] blood loss (chronic) [facility] Diagnosis Rheumatoid arthritis of multiple sites [...] in stool contents [facility] Diagnosis Rheumatoid arthritis of multiple sites [...] specified intestinal malabsorption [facility] Diagnosis Rheumatoid arthritis of multiple sites [...] therapeutic drug monitoring documented in this encounter [facility] note* Diagnosis Rheumatoid arthritis of multiple [...] specified intestinal malabsorption [facility] Diagnosis Rheumatoid arthritis of multiple sites [...] region and thigh [facility] Diagnosis Rheumatoid arthritis of multiple sites [...] in stool contents [facility] Diagnosis Rheumatoid arthritis of multiple sites [...] On prednisone therapy [facility] Diagnosis Rheumatoid arthritis of multiple sites [...] (HCC) Senile osteoporosis documented in this encounter [facility] note* Diagnosis Rheumatoid arthritis of multiple [...] On prednisone therapy documented in this encounter [facility] note* Diagnosis Rheumatoid arthritis of multiple [...] blood loss (chronic) [facility] Diagnosis Rheumatoid arthritis of multiple sites [...] blood loss (chronic) [facility] Diagnosis Rheumatoid arthritis of multiple sites [...] On prednisone therapy documented in this encounter [facility] Discharge instructions Additional Instructions Call and [...] either Friday or before you restart it. [facility] Work Phone: [facility]: [facility] Phone[facility] Work Phone: Hospital Discharge instructions Additional Instructions You are going to stop your Coumadin for 2 days. You are going to take the Aygestin 5 mg twice a day for 5 days. Please return here for worsening bleeding, dizziness, chest pain, any other concerns. Please follow-up [facility] Work Phone: Hospital Discharge instructions Additional Instructions Please follow-up with your PCP. Please use Tylenol for any fevers.[facility] Work Phone: Hospital Discharge instructions Additional Instructions You were given 1 unit of blood. Please follow-up with your primary care doctor for further monitoring of your blood levels.[facility] Work Phone: Hospital Discharge instructionsAdditional Instructions The CT scan of your head and cervical spine revealed no signs of acute trauma. X-rays of your right elbow and pelvis also showed no sign of fracture. Your urine does show changes consistent with UTI and therefore take the antibiotic as directed to help resolve this. Return to the ER should you have any further concernsWHol[facility] Work Phone: Reason for referral (narrative)* Outpatient Procedure (Routine) - Closed Specialty Diagnoses / Procedures Referred By Michael t Referred To [facility] Diagnoses Paroxysmal atrial fibrillation (HCC) Rheumatic mitral regurgitation Essential hypertension Mixed hyperlipidemia Hyperglycemia PAF (paroxysmal atrial fibrillation) (HCC) Shortness of breath SVT (supraventricular tachycardia) ([facility]) Procedures ECG COMPLETE ECG ROUTINE ECG W/LEAST 12 LDS W/I&R Cecilio Ibarra DO [address] [address] [facility] [place] [address] [place] [address] Referral ID Status Reason Start Date Expiration Date V isits Requested Visits Authorized [id number] Closed Auto-Generate d Referral 09/05/2021 09/05/2022 1 1 [facility] for referral (narrative)* Diagnostic Procedure Only (Routine) - Closed Specialty Diagnoses / Procedures Referred By Contac t Referred To Contact XR IMAGING Diagnoses Personal history of breast cancer Rib pain on right side Procedures XR RIBS 2V AP/OBL RIGHT RADEX RIBS UNILATERAL 2 VIEWS Cassidy Arreola APRN.CNP [address] [place] [address] Xr Imaging Referral ID Status Reason Start Date Expiration Date V isits Requested Visits Authorized [id number] Closed Auto-Generate d Referral 06/05/2022 07/05/2023 1 1 [facility] for referral (narrative)* Diagnostic Procedure Only (Routine) - Closed Specialty Diagnoses / Procedures Referred By Contac t Referred To Contact XR IMAGING Diagnoses Pain in right wrist Procedures XR WRIST GENERAL 3V PA/LAT/OBL RIGHT RADEX WRIST COMPLETE MINIMUM 3 VIEWS Stella Preciado PA-C [address] [place] [address] [place] [address] Referral ID Status Reason Start Date Expiration Date V isits Requested Visits Authorized [id number] Closed Auto-Generate d Referral 11/25/2022 12/25/2023 1 1 [facility] for referral (narrative)* Diagnostic Procedure Only (Routine) - Closed Specialty Diagnoses / Procedures Referred By Contac t Referred To Contact XR IMAGING Diagnoses Personal history of breast cancer Rib pain on right side Procedures XR RIBS 2V AP/OBL RIGHT RADEX RIBS UNILATERAL 2 VIEWS Cassidy Arreola APRN.INCOME TAX PREPARER [address] [place] [address] [place] [address] Referral ID Status Reason Start Date Expiration Date V isits Requested Visits Authorized [id number] Closed Auto-Generate d Referral 06/05/2022 07/05/2023 1 1 [facility] for referral (narrative)* Diagnostic Procedure Only (Routine) - Closed Specialty Diagnoses / Procedures Referred By Contac t Referred To Contact XR IMAGING Diagnoses Pain in right wrist Procedures XR WRIST GENERAL 3V PA/LAT/OBL RIGHT RADEX WRIST COMPLETE MINIMUM 3 VIEWS Stella Preciado PA-C [address] [place] [address] [place] [address] Referral ID Status Reason Start Date Expiration Date V isits Requested Visits Authorized [id number] Closed Auto-Generate d Referral 11/25/2022 12/25/2023 1 1 [facility] for referral (narrative)* Diagnostic Procedure Only (Routine) - Pending Review Specialty Diagnoses / Procedures Referred By Contac t Referred To Contact XR IMAGING Diagnoses Primary osteoarthritis of both knees Procedures XR KNEE GENERAL 4V AP BOTH/PA BOTH/LAT/MERC BILATERAL RADIOLOGIC EXAM KNEE COMPLETE 4/MORE VIEWS Stella Preciado PA-C [address] [place] [address] [place] [address] Referral ID Status Reason Start Date Expiration Date Visits Requested Visits Authorized [id number] Pending Review Auto-Generat ed Referral 06/10/2023 07/09/2024 1 1 [facility] for referral (narrative)No reason for referral information availableWHolzer Health System Work Phone: Reason for referral (narrative)* Clinic-Administered Medication (Routine) - Authorized Specialty Diagnoses / Procedures Referred By Michael mcgowan Referred To Contact [facility] Thalia Monterroso MD [address] [place] [address] Phone: tel: fax: [facility] [place] [address] [place] [address] Referral ID Status Reason Start Date Expiration Date Visits Requested Visits Authorized [id number] Authorized Auto-Generat ed Referral 08/27/2024 11/25/2024 2 2 [facility] for visit Narrative* Diagnostic Procedure Only (Routine) - Closed Specialty Diagnoses / Procedures Referred By Michael mcgowan Referred To Contact XR IMAGING Diagnoses Personal history of breast cancer Rib pain on right side Procedures XR RIBS 2V AP/OBL RIGHT RADEX RIBS UNILATERAL 2 VIEWS Cassidy Arreola APRN.INCOME TAX PREPARER [address] [place] [address] Xr Imaging [facility] Referral ID Status Reason Start Date Expiration Date V isits Requested Visits Authorized [id number] Closed Auto-Generate d Referral 06/05/2022 07/05/2023 1 1 [facility] for visit Narrative* Diagnostic Procedure Only (Routine) - Closed Specialty Diagnoses / Procedures Referred By Michael mcgowan Referred To Contact XR IMAGING Diagnoses Pain in right wrist Procedures XR WRIST GENERAL 3V PA/LAT/OBL RIGHT RADEX WRIST COMPLETE MINIMUM 3 VIEWS Stella Preciado PA-C [address] [place] [address] [place] [address] Referral ID Status Reason Start Date Expiration Date V isits Requested Visits Authorized [id number] Closed Auto-Generate d Referral 11/25/2022 12/25/2023 1 1 [facility] for visit Narrative* Diagnostic Procedure Only (Routine) - Closed Specialty Diagnoses / Procedures Referred By Contac t Referred To Contact XR IMAGING Diagnoses Primary osteoarthritis of both knees Procedures XR KNEE GENERAL 4V AP BOTH/PA BOTH/LAT/MERC BILATERAL RADIOLOGIC EXAM KNEE COMPLETE 4/MORE VIEWS Stella Preciado PA-C [address] [place] [address] [place] [address] Referral ID Status Reason Start Date Expiration Date V isits Requested Visits Authorized [id number] Closed Auto-Generate d Referral 06/10/2023 07/09/2024 1 1 [facility] for visit Narrative* Diagnostic Procedure Only (Routine) - Closed Specialty Diagnoses / Procedures Referred By Contac t Referred To Contact XR IMAGING Diagnoses Bilateral hip pain Procedures XR HIP BILATERAL 5V PEL/AP/LAT EACH HIP RADEX HIPS BILATERAL WITH PELVIS MINIMUM 5 VIEWS Cassidy Arreola APRN.INCOME TAX PREPARER [address] [place] [address] [place] [address] Referral ID Status Reason Start Date Expiration Date V isits Requested Visits Authorized [id number] Closed Auto-Generate d Referral 02/24/2024 03/25/2025 1 1 [facility] Summary Purpose Family History No Family History Records FoundNo Family History Records FoundNo Family History Records FoundNo Family History Records FoundNo Family History Records Found Advance Directives No Advanced Directives Records FoundDocuments on File Type Date Recorded 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 Advance Directive(s) 01/12/2021 1:54 PM [...] No July 03, 2021 12:32am Power of Documentation Billing Clerk No July 03 12:32am Documents on File Type Date Recorded 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 Advance Directive(s) 07/06/2021 12:56 PM [...] Maker Relationship: Health Ca re Power of Documentation Billing Clerk Agent Latest Code Status on File Code Status Date Activated Date Inactivated Comments DNR-CCA 07/06/2021 6:27 PM 2021 5:16 PM Documents on File Type Date Recorded 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 Advance Directive(s) 08/12/2021 4:09 PM [...] August 20, 2021 8 :39am Power of Documentation Billing Clerk Yes August 20, 2021 8:39am Advance Directive Response Recorded Date/ Time Name of Medical Power of Documentation Billing Clerk DAUGHTER August 20, 2021 8:39am Living Will Yes August 26, 2021 1:00pm Power of Documentation Billing Clerk Yes August 26 1:00pm Documents on File Type Date Recorded 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 Advance Directive(s) 08/12/2021 4:09 PM [...] Date/ Time Name of Medical Power of Documentation Billing Clerk ALFREDO August 20, 2021 8:39am Name of Medical Power of Documentation Billing Clerk eloisa August 26, 2021 1:00pm Living Will No October 18, 2021 11:00am Power of Documentation Billing Clerk No October 18 11:00am Documents on File Type Date Recorded 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 Advance Directive(s) 09/28/2020 12:50 PM Advance Directive(s) 12/28/2008 Advance Directive Response Recorded Date/ Time Living Will No December 28 12:16pm Power of Documentation Billing Clerk No December 28, 2021 12:16pm Advance Directive Response Recorded Date/ Time Living Will No December 28 11:16am Power of Documentation Billing Clerk No December 28, 2021 11:16am Documents on File Type Date Recorded 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 Advance Directive(s) 09/28/2020 12:50 PM [...] Decision Maker Relationship: Health Care Power of Documentation Billing Clerk Agent Latest Code Status on File Code [...] Decision Maker Relationship: Health Care Power of Documentation Billing Clerk Agent Advance Directive Response Recorded Date/ Time Living Will No April 07 1:01pm Power of Documentation Billing Clerk No April 07, 2023 1:01pm Advance Directive Response Recorded Date/ Time Living Will No April 07 2:01pm Power of Documentation Billing Clerk No April 07, 2023 2:01pm Date Activated Date Inactivated Comments 08/12/2021 8:33 PM 08/13/2021 5:51 PM Question Answer Comments DNR Order Discussed With: Patient Date Activated Date Inactivated Comments 07/06/2021 6:27 PM 2021 5:16 PM Question Answer Comments DNR Order Discussed With: PatientSurrogate Decis ion Maker Surrogate Decision Maker Relationship: Health Ca re Power of Documentation Billing Clerk Agent Date Activated Date Inactivated Comments 08/12/2021 8:33 PM 08/13/2021 5:51 PM Question Answer Comments DNR Order Discussed With: Patient Date Activated Date Inactivated Comments 07/06/2021 6:27 PM 2021 5:16 PM Question Answer Comments DNR Order Discussed With: PatientSurrogate Decis ion Maker Surrogate Decision Maker Relationship: Health Ca re Power of Documentation Billing Clerk Agent Advance Directive Response Recorded Date/ Time Do you have a Healthcare Power of Documentation Billing Clerk? Yes September 14, 2024 5:43am Name of Medical Power of Documentation Billing Clerk lili--[email or web address] vail September 14, 2024 5:43am Chief Complaint and Reason for Visit Chief Complaint abd Chief Complaint abd [facility] Chief Complaint abd [facility] WORK LAB WORK LAB WORK Chief Complaint abd [facility] B[facility]OD WORK LAB WORK LAB WORK hyster d&c symphion, polypectomy Reason for Visit Endometrial thickeni ng on ultrasound PMB (postmenopausal bleeding) History of diverticulitis of colon Chief Complaint abd [facility] B[facility]OD WORK LAB WORK LAB WORK hyster d&c symphion, polypectomy VAGINAL BLEEDING POST OP D&C ON 08/24 Reason for Visit Endometrial thickeni ng on ultrasound PMB (postmenopausal bleeding) History of diverticulitis of colon Chief Complaint abd [facility] B[facility] WORK LAB WORK LAB WORK hyster d&c symphion, polypectomy VAGINAL BLEEDING POST OP D&C ON 08/24 ABN Reason for Visit History of diverticu litis of colon Endometrial thickening on ultrasound PMB (postmenopausal bleeding) Chief Complaint [facility]OD W [facility]K LAB WORK LAB WORK hyster d&c symphion, polypectomy VAGINAL BLEEDING POST OP D&C ON 08/24 ABN [facility] LAB WORK Reason for Visit History of diverticu litis of colon Endometrial thickening on ultrasound PMB (postmenopausal bleeding) Chief Complaint hyster d&c symphion, polypectomy VAGINAL BLEEDING POST OP D&C ON 08/24 ABN [facility] LAB WORK LABWORK [facility] LAB WORK Reason for Visit History of diverticu litis of colon Endometrial thickening on ultrasound PMB (postmenopausal bleeding) Chief Complaint ABN [facility] LAB WORK LABWORK [facility] LAB WORK [facility] LABWORK [facility] LABWORK NEW SYMPTOMS/CONCERN NEW SYMPTOMS/CONCERN ABNORMAL LABS Chief Complaint ABN [facility] LAB WORK LABWORK [facility] LAB WORK [facility] LABWORK [facility] LABWORK NEW SYMPTOMS/CONCERN [facility] LABWORK NEW SYMPTOMS/CONCERN ABNORMAL LABS NEW SYMPTOMS/CONCERN [facility] LAB WORK Chief Complaint ABN [facility] LAB WORK LABWORK [facility] LAB WORK LABWORK [facility] LABWORK [facility] LABWORK NEW SYMPTOMS/CONCERN [facility] LABWORK NEW SYMPTOMS/CONCERN [facility] LABWORK ABNORMAL LABS NEW SYMPTOMS/CONCERN [facility] LAB WORK Chief Complaint ABN [facility] LAB WORK LABWORK [facility] LAB WORK LABWORK [facility] LABWORK [facility] LABWORK NEW SYMPTOMS/CONCERN [facility] LABWORK NEW SYMPTOMS/CONCERN [facility] LABWORK ABNORMAL LABS NEW SYMPTOMS/CONCERN [facility] LAB WORK [facility] LABWORK Chief Complaint ABN [facility] LAB WORK LABWORK [facility] LAB WORK LABWORK [facility]FP LABWORK [facility] LABWORK NEW SYMPTOMS/CONCERN [facility] LABWORK NEW SYMPTOMS/CONCERN [facility] LABWORK ABNORMAL LABS NEW SYMPTOMS/CONCERN [facility] LAB WORK [facility] LABWORK [facility] LABWORK Chief Complaint LABWORK [facility] LAB WORK LABWORK [facility] LABWORK [facility] LABWORK NEW SYMPTOMS/CONCERN [facility] LABWORK NEW SYMPTOMS/CONCERN [facility] LABWORK ABNORMAL LABS NEW SYMPTOMS/CONCERN [facility] LAB WORK [facility] LABWORK [facility] LABWORK [facility] LABWORK [facility] LAB WORK 2 UNITS PRBC Chief Complaint [facility] LAB WOR K LABWORK [facility] LABWORK [facility] LABWORK NEW SYMPTOMS/CONCERN [facility] LABWORK NEW SYMPTOMS/CONCERN [facility] LABWORK ABNORMAL LABS NEW SYMPTOMS/CONCERN [facility] LAB WORK [facility] 2 UNITS [facility] Chief Complaint LABWORK [facility] NEW SYMPTOMS/CONCERN [facility] NEW SYMPTOMS/CONCERN [facility] ABNORMAL LABS NEW SYMPTOMS/CONCERN [facility] LAB WORK [facility] LABWORK [facility] LABWORK [facility] LABWORK [facility] LABWORK [facility] LAB WORK 2 UNITS [facility] NEW SYMPTOMS/CONCERNS Chief Complaint LABWORK [facility] LABWORK [facility] LABWORK NEW SYMPTOMS/CONCERN [facility] LABWORK NEW SYMPTOMS/CONCERN [facility] LABWORK ABNORMAL LABS NEW SYMPTOMS/CONCERN [facility] LAB WORK [facility] LABWORK [facility] LABWORK [facility] LABWORK [facility] LABWORK [facility] LAB WORK 2 UNITS [facility] LABWORK NEW SYMPTOMS/CONCERNS NEW SYMPTOMS/CONCERN Chief Complaint [facility] LABWORK ABNORMAL LABS NEW SYMPTOMS/CONCERN [facility] LAB WORK [facility] LABWORK [facility] LABWORK [facility] LABWORK [facility] LABWORK [facility] LAB WORK 2 UNITS [facility] LABWORK NEW SYMPTOMS/CONCERNS NEW SYMPTOMS/CONCERN LABWORK Chief Complaint [facility] LABWORK [facility] LAB WORK 2 UNITS [facility] LABWORK NEW SYMPTOMS/CONCERNS NEW SYMPTOMS/CONCERN LABWORK [facility] LABWORK new symptoms Chief Complaint [facility] LAB WOR K 2 UNITS [facility]WORK NEW SYMPTOMS/CONCERNS NEW SYMPTOMS/CONCERN LABWORK [facility] LABWORK new symptoms LABWORK Chief Complaint NEW SYMPTOMS/CONCERN S NEW SYMPTOMS/CONCERN LABWORK [facility] LABWORK new symptoms LABWORK LABWORK Chief Complaint LABWORK NEW CONCERN [facility] LABWORK [facility] LAB WORK LABWORK LABWORK Chief Complaint [facility] LAB WOR K LABWORK LABWORK [facility] LAB WORK LABWORK Chief Complaint LABWORK [facility] LAB WORK LABWORK [facility] LABWORK Chief Complaint LABWORK NEW CONCERN [facility] LABWORK [facility] LABWORK [facility] LABWORK Chief Complaint NEW CONCERN [facility] LAB[facility] FOLLOW UP NOTE [facility] LABWORK NEW CONCERN [facility] LABWORK LABWORK Chief Complaint FOLLOW UP NOTE [facility] LABWORK NEW CONCERN [facility]WORK LABWORK LABWORK Chief Complaint [facility] LABWORK NEW CONCERN [facility] LABWORK LABWORK LABWORK Chief Complaint Admit Date [facility] LAB WORK March 01 5:00am [facility] LAB WORK March 02 5:00am [facility] LAB WORK April 05, 2024 5:00am [facility] LAB WORK April 23, 2024 4:00am [facility] LABWORK May 03, 2024 5:00am NEW CONCERN May 13, 2024 3:32pm LABWORK May 13, 2024 9:45pm LABWORK May 31, 2024 5:0 0am Chief Complaint Admit Date [facility] LAB WORK April 05, 2024 5:00am [facility] LAB WORK April 23, 2024 4:00am [facility] LABWORK May 03, 2024 5:00am NEW CONCERN May 13, 2024 3:32pm LABWORK May 13, 2024 9:45pm LABWORK May 31, 2024 5:0 0am LABWORK June 16, 2024 5:00 am LABWORK July 05, 2024 5:0 0am NEW CONCERN July 06, 2024 2:2 6pm Chief Complaint Admit Date [facility] LAB WORK April 05, 2024 5:00am [facility] LAB WORK April 23, 2024 4:00am [facility] LAB[facility] May 03, 2024 5:00am NEW CONCERN May 13, 2024 3:32pm LABWORK May 13, 2024 9:45pm LABWORK May 31, 2024 5:0 0am LABWORK June 16, 2024 5:00 am LABWORK July 05, 2024 5:0 0am NEW CONCERN July 06, 2024 2:2 6pm LABWORK July 07, 2024 5:0 0am Chief Complaint Admit Date [facility] LAB WORK April 05, 2024 5:00am [facility] LAB WORK April 23, 2024 4:00am [facility] LABWORK May 03, 2024 5:00am NEW CONCERN May 13, 2024 3:32pm LABWORK May 13, 2024 9:45pm LABWORK May 31, 2024 5:0 0am LABWORK June 16, 2024 5:00 am LABWORK July 05, 2024 5:0 0am NEW CONCERN July 06, 2024 2:2 6pm LABWORK July 07, 2024 5:0 0am LABWORK July 08, 2024 12: 00pm Chief Complaint Admit Date [facility] LAB WORK April 23, 2024 4:00am [facility] LABWORK May 03, 2024 5:00am NEW CONCERN May 13, 2024 3:32pm LABWORK May 13, 2024 9:45pm LABWORK May 31, 2024 5:0 0am LABWORK June 16, 2024 5:00 am LABWORK July 05, 2024 5:0 0am NEW CONCERN July 06, 2024 2:2 6pm LABWORK July 07, 2024 5:0 0am LABWORK July 08, 2024 12: 00pm [facility] WORK August 02, 2024 4:0 0am UTI, DIARRHEA, BLADDER FISTULA August 06, 2024 2:19pm Chief Complaint Admit Date [facility] LAB WORK April 23, 2024 4:00am [facility] LABWORK May 03, 2024 5:00am NEW CONCERN May 13, 2024 3:32pm LABWORK May 13, 2024 9:45pm LABWORK May 31, 2024 5:0 0am LABWORK June 16, 2024 5:00 am LABWORK July 05, 2024 5:0 0am NEW CONCERN July 06, 2024 2:2 6pm LABWORK July 07, 2024 5:0 0am LABWORK July 08, 2024 12: 00pm [facility] LAB WORK August 02, 2024 4:0 0am UTI, DIARRHEA, BLADDER FISTULA August 06, 2024 2:19pm LEFT ULNA August 13, 2024 2:06p m Room 4 August 13, 2024 2:32p m Chief Complaint Admit Date [facility] LAB WORK April 23, 2024 4:00am [facility] LABWORK May 03, 2024 5:00am NEW CONCERN May 13, 2024 3:32pm LABWORK May 13, 2024 9:45pm LABWORK May 31, 2024 5:0 0am LABWORK June 16, 2024 5:00 am LABWORK July 05, 2024 5:0 0am NEW CONCERN July 06, 2024 2:2 6pm LABWORK July 07, 2024 5:0 0am LABWORK July 08, 2024 12: 00pm [facility] LAB WORK August 02, 2024 4:0 0am UTI, DIARRHEA, BLADDER FISTULA August 06, 2024 2:19pm LEFT ULNA August 13, 2024 2:06p m Room 4 August 13, 2024 2:32p m LEFT ULNA August 18, 2024 2:33p m Room August 18, 2024 2:51p m Reason for [...] 0am LABWORK July 08, 2024 12: 00pm [facility] LAB WORK August 02, 2024 4:0 0am [...] 0am LABWORK July 08, 2024 12: 00pm [facility] LAB WORK August 02, 2024 4:0 0am [...] 0am LABWORK July 08, 2024 12: 00pm [facility] LAB WORK August 02, 2024 4:0 0am [...] 0am LABWORK July 08, 2024 12: 00pm [facility] LAB WORK August 02, 2024 4:0 0am [...] 0am LABWORK July 08, 2024 12: 00pm [facility] LAB WORK August 02, 2024 4:0 0am [...] 0am LABWORK July 08, 2024 12: 00pm [facility] LAB WORK August 02, 2024 4:0 0am [...] 0am LABWORK July 08, 2024 12: 00pm [facility] LAB WORK August 02, 2024 4:0 0am [...] 0am LABWORK July 08, 2024 12: 00pm [facility] LAB WORK August 02, 2024 4:0 0am [...] 0am LABWORK July 08, 2024 12: 00pm [facility] LAB WORK August 02, 2024 4:0 0am [...] 2024 2:0 4pm Chief Complaint Admit Date [facility] LAB WORK August 02, 2024 4:0 0am [...] 2024 3: 26pm Chief Complaint Admit Date [facility] LAB WORK August 02, 2024 4:0 0am [...] 3: 26pm Colitis November 22, 2024 10:58am Chief Complaint Admit Date LEFT ULNA August 18, 2024 2:33p m [...] Room 4 October 22, 2024 2:0 4pm [facility] LAB WORK November 01, 2024 5:00am Annual H&P exam November 02, 2024 3: 26pm [facility] LAB WORK November 03, 2024 5:00am Colitis November 22, 2024 10:58am [facility] LAB WORK November 29 5:00am Reason for Visit Admit Date Fall August 18, 2024 2:33p m Fx distal ulna-closed August 18, 2024 2:3 3pm Fall September 03, 2024 1:55 pm Fx distal ulna-closed September 03, 2024 1: 55pm Change in bowel habits September 07, 2024 2 :24pm Fall September 24, 2024 1:58 pm Fx distal ulna-closed September 24, 2024 1: 58pm Fx distal ulna-closed October 22, 2024 1 :53pm Change in bowel habits November 22 10:58am Health Concerns Infection Onset Date Last [...] incontinence Procedures CONSULT TO URO GYNECOLOGY OFFICE/OUTPATIENT [facility] 60-74 MINUTES Jayde Hebert MD [address] [place] [id number] Referral ID Status Reason Start Date Expiration Date Visits Requested Visits Authorized [id number] Authorized PCP Requested Referral Auto-Generate d Referral 08/30/2021 11/28/2021 1 1 Specialty Diagnoses / Procedures Referred By Contac t Referred To Contact Infectious Diseases Diagnoses Recurrent UTI History of ESBL E. coli infection Procedures CONSULT TO INFECTIOUS DISEASES OFFICE/OUTPATIENT [facility] 60-74 MINUTES Basilia Hernández MD [address] [address] Referral ID Status Reason Start Date Expiration Date Visits Requested Visits Authorized [id number] Authorized PCP Requested Referral 09/26/2021 09/26/2022 1 1 Specialty Diagnoses / Procedures Referred By Contac t Referred To Contact CT IMAGING Diagnoses Iron deficiency anemia due to chronic blood loss Bilateral hip pain Generalized abdominal pain Abdominal bloating Personal history of breast cancer Occult blood in stools Procedures CT CHEST W IVCON DIAGNOSTIC COMPUTED TOMOGRAPHY THORAX W/CONTRAST Cassidy Arreola APRN.INCOME [employer]PARER [address] [place] [address] [place] [address] Referral ID Status Reason Start Date Expiration Date Visits Requested Visits Authorized [id number] Authorized Auto-Generat ed Referral 4 03/25/2025 1 1 Specialty Diagnoses / Procedures Referred By Contac t Referred To Contact CT IMAGING Diagnoses Iron deficiency anemia due to chronic blood loss Bilateral hip pain Generalized abdominal pain Abdominal bloating Personal history of breast cancer Occult blood in stools Procedures CT ABD/PEL W IVCON CT ABD & PELVIS W/CONTRAST Cassidy Arreola APRN.INCOME [employer] PRE[employer]ER [address] [place] [address] [place] [address] Referral ID Status Reason Start Date Expiration Date Visits Requested Visits Authorized [id number] Authorized Auto-Generat ed Referral 4 03/25/2025 1 1 Specialty Diagnoses / Procedures Referred By Contac t Referred To Contact XR IMAGING Diagnoses Bilateral hip pain Procedures XR HIP BILATERAL 5V PEL/AP/LAT EACH HIP RADEX HIPS BILATERAL WITH PELVIS MINIMUM 5 VIEWS Cassidy rAreola APRN.INCOME TAX PREPARER [address] [place] [address] [place] [address] Referral ID Status Reason Start Date Expiration Date Visits Requested Visits Authorized [id number] New Request Auto-Generat ed Referral 4 03/25/2025 [...] section and content) DATE CREATED AUTHOR 10/21/2019 [facility] DATE CREATED AUTHOR AUTHOR'S ORGANIZ ATION 08/28/2021 [facility] DATE CREATED AUTHOR AUTHOR'S ORGANIZ ATION 01/07/2022 [facility] DATE CREATED AUTHOR AUTHOR'S ORGANIZ ATION 12/24/2024 [facility] DATE CREATED AUTHOR AUTHOR'S ORGANIZ ATION 01/26/2025 [facility] Source Comments (unrecognize d section and content) In the event this informatio n is protected by the Federal Confidentiality of Alcohol and Drug Abuse Patient Records regulations: The Federal rules restrict any use of the information to criminally investigate or prosecute any alcohol or drug abuse patient.[facility] HealthcareIn the event this information is protected by the Federal Confidentiality of Alcohol and Drug Abuse Patient Records regulations: The Federal rules restrict any use of the information to criminally investigate or prosecute any alcohol or drug abuse patient.[facility] HealthcareIn the event this information is protected by the Federal Confidentiality of Alcohol and Drug Abuse Patient Records regulations: The Federal rules restrict any use of the information to criminally investigate or prosecute any alcohol or drug abuse patient.[facility] HealthcareIn the event this information is protected by the Federal Confidentiality of Alcohol and Drug Abuse Patient Records regulations: The Federal rules restrict any use of the information to criminally investigate or prosecute any alcohol or drug abuse patient.[facility] HealthcareIn the event this information is protected by the Federal Confidentiality of Alcohol and Drug Abuse Patient Records regulations: The Federal rules restrict any use of the information to criminally investigate or prosecute any alcohol or drug abuse patient.[facility] HealthcareIn the event this information is protected by the Federal Confidentiality of Alcohol and Drug Abuse Patient Records regulations: The Federal rules restrict any use of the information to criminally investigate or prosecute any alcohol or drug abuse patient.[facility] HealthcareIn the event this information is protected by the Federal Confidentiality of Alcohol and Drug Abuse Patient Records regulations: The Federal rules restrict any use of the information to criminally investigate or prosecute any alcohol or drug abuse patient.[facility] HealthcareIn the event this information is protected by the Federal Confidentiality of Alcohol and Drug Abuse Patient Records regulations: The Federal rules restrict any use of the information to criminally investigate or prosecute any alcohol or drug abuse patient.[facility] HealthcareIn the event this information is protected by the Federal Confidentiality of Alcohol and Drug Abuse Patient Records regulations: The Federal rules restrict any use of the information to criminally investigate or prosecute any alcohol or drug abuse patient.[facility] HealthcareIn the event this information is protected by the Federal Confidentiality of Alcohol and Drug Abuse Patient Records regulations: The Federal rules restrict any use of the information to criminally investigate or prosecute any alcohol or drug abuse patient.[facility] HealthcareIn the event this information is protected by the Federal Confidentiality of Alcohol and Drug Abuse Patient Records regulations: The Federal rules restrict any use of the information to criminally investigate or prosecute any alcohol or drug abuse patient.[facility] HealthcareIn the event this information is protected by the Federal Confidentiality of Alcohol and Drug Abuse Patient Records regulations: The Federal rules restrict any use of the information to criminally investigate or prosecute any alcohol or drug abuse patient.[facility] HealthcareIn the event this information is protected by the Federal Confidentiality of Alcohol and Drug Abuse Patient Records regulations: The Federal rules restrict any use of the information to criminally investigate or prosecute any alcohol or drug abuse patient.[facility] HealthcareIn the event this information is protected by the Federal Confidentiality of Alcohol and Drug Abuse Patient Records regulations: The Federal rules restrict any use of the information to criminally investigate or prosecute any alcohol or drug abuse patient.[facility] HealthcareIn the event this information is protected by the Federal Confidentiality of Alcohol and Drug Abuse Patient Records regulations: The Federal rules restrict any use of the information to criminally investigate or prosecute any alcohol or drug abuse patient.[facility] HealthcareIn the event this information is protected by the Federal Confidentiality of Alcohol and Drug Abuse Patient Records regulations: The Federal rules restrict any use of the information to criminally investigate or prosecute any alcohol or drug abuse patient.[facility] HealthcareIn the event this information is protected by the Federal Confidentiality of Alcohol and Drug Abuse Patient Records regulations: The Federal rules restrict any use of the information to criminally investigate or prosecute any alcohol or drug abuse patient.[facility] HealthcareIn the event this information is protected by the Federal Confidentiality of Alcohol and Drug Abuse Patient Records regulations: The Federal rules restrict any use of the information to criminally investigate or prosecute any alcohol or drug abuse patient.[facility] HealthcareIn the event this information is protected by the Federal Confidentiality of Alcohol and Drug Abuse Patient Records regulations: The Federal rules restrict any use of the information to criminally investigate or prosecute any alcohol or drug abuse patient.[facility] HealthcareIn the event this information is protected by the Federal Confidentiality of Alcohol and Drug Abuse Patient Records regulations: The Federal rules restrict any use of the information to criminally investigate or prosecute any alcohol or drug abuse patient.[facility] HealthcareIn the event this information is protected by the Federal Confidentiality of Alcohol and Drug Abuse Patient Records regulations: The Federal rules restrict any use of the information to criminally investigate or prosecute any alcohol or drug abuse patient.[facility] HealthcareIn the event this information is protected by the Federal Confidentiality of Alcohol and Drug Abuse Patient Records regulations: The Federal rules restrict any use of the information to criminally investigate or prosecute any alcohol or drug abuse patient.[facility] HealthcareIn the event this information is protected by the Federal Confidentiality of Alcohol and Drug Abuse Patient Records regulations: The Federal rules restrict any use of the information to criminally investigate or prosecute any alcohol or drug abuse patient.[facility] HealthcareIn the event this information is protected by the Federal Confidentiality of Alcohol and Drug Abuse Patient Records regulations: The Federal rules restrict any use of the information to criminally investigate or prosecute any alcohol or drug abuse patient.[facility] HealthcareIn the event this information is protected by the Federal Confidentiality of Alcohol and Drug Abuse Patient Records regulations: The Federal rules restrict any use of the information to criminally investigate or prosecute any alcohol or drug abuse patient.[facility] HealthcareIn the event this information is protected by the Federal Confidentiality of Alcohol and Drug Abuse Patient Records regulations: The Federal rules restrict any use of the information to criminally investigate or prosecute any alcohol or drug abuse patient.[facility] HealthcareIn the event this information is protected by the Federal Confidentiality of Alcohol and Drug Abuse Patient Records regulations: The Federal rules restrict any use of the information to criminally investigate or prosecute any alcohol or drug abuse patient.[facility] HealthcareIn the event this information is protected by the Federal Confidentiality of Alcohol and Drug Abuse Patient Records regulations: The Federal rules restrict any use of the information to criminally investigate or prosecute any alcohol or drug abuse patient.[facility] HealthcareIn the event this information is protected by the Federal Confidentiality of Alcohol and Drug Abuse Patient Records regulations: The Federal rules restrict any use of the information to criminally investigate or prosecute any alcohol or drug abuse patient.[facility] HealthcareIn the event this information is protected by the Federal Confidentiality of Alcohol and Drug Abuse Patient Records regulations: The Federal rules restrict any use of the information to criminally investigate or prosecute any alcohol or drug abuse patient.[facility] HealthcareIn the event this information is protected by the Federal Confidentiality of Alcohol and Drug Abuse Patient Records regulations: The Federal rules restrict any use of the information to criminally investigate or prosecute any alcohol or drug abuse patient.[facility] HealthcareIn the event this information is protected by the Federal Confidentiality of Alcohol and Drug Abuse Patient Records regulations: The Federal rules restrict any use of the information to criminally investigate or prosecute any alcohol or drug abuse patient.[facility] HealthcareIn the event this information is protected by the Federal Confidentiality of Alcohol and Drug Abuse Patient Records regulations: The Federal rules restrict any use of the information to criminally investigate or prosecute any alcohol or drug abuse patient.[facility] HealthcareIn the event this information is protected by the Federal Confidentiality of Alcohol and Drug Abuse Patient Records regulations: The Federal rules restrict any use of the information to criminally investigate or prosecute any alcohol or drug abuse patient.[facility] HealthcareIn the event this information is protected by the Federal Confidentiality of Alcohol and Drug Abuse Patient Records regulations: The Federal rules restrict any use of the information to criminally investigate or prosecute any alcohol or drug abuse patient.[facility] HealthcareIn the event this information is protected by the Federal Confidentiality of Alcohol and Drug Abuse Patient Records regulations: The Federal rules restrict any use of the information to criminally investigate or prosecute any alcohol or drug abuse patient.[facility] HealthcareIn the event this information is protected by the Federal Confidentiality of Alcohol and Drug Abuse Patient Records regulations: The Federal rules restrict any use of the information to criminally investigate or prosecute any alcohol or drug abuse patient.[facility] HealthcareIn the event this information is protected by the Federal Confidentiality of Alcohol and Drug Abuse Patient Records regulations: The Federal rules restrict any use of the information to criminally investigate or prosecute any alcohol or drug abuse patient.[facility] HealthcareIn the event this information is protected by the Federal Confidentiality of Alcohol and Drug Abuse Patient Records regulations: The Federal rules restrict any use of the information to criminally investigate or prosecute any alcohol or drug abuse patient.[facility] HealthcareIn the event this information is protected by the Federal Confidentiality of Alcohol and Drug Abuse Patient Records regulations: The Federal rules restrict any use of the information to criminally investigate or prosecute any alcohol or drug abuse patient.[facility] HealthcareIn the event this information is protected by the Federal Confidentiality of Alcohol and Drug Abuse Patient Records regulations: The Federal rules restrict any use of the information to criminally investigate or prosecute any alcohol or drug abuse patient.[facility] HealthcareIn the event this information is protected by the Federal Confidentiality of Alcohol and Drug Abuse Patient Records regulations: The Federal rules restrict any use of the information to criminally investigate or prosecute any alcohol or drug abuse patient.[facility] HealthcareIn the event this information is protected by the Federal Confidentiality of Alcohol and Drug Abuse Patient Records regulations: The Federal rules restrict any use of the information to criminally investigate or prosecute any alcohol or drug abuse patient.[facility] HealthcareIn the event this information is protected by the Federal Confidentiality of Alcohol and Drug Abuse Patient Records regulations: The Federal rules restrict any use of the information to criminally investigate or prosecute any alcohol or drug abuse patient.[facility] HealthcareIn the event this information is protected by the Federal Confidentiality of Alcohol and Drug Abuse Patient Records regulations: The Federal rules restrict any use of the information to criminally investigate or prosecute any alcohol or drug abuse patient.[facility] HealthcareIn the event this information is protected by the Federal Confidentiality of Alcohol and Drug Abuse Patient Records regulations: The Federal rules restrict any use of the information to criminally investigate or prosecute any alcohol or drug abuse patient.[facility] HealthcareIn the event this information is protected by the Federal Confidentiality of Alcohol and Drug Abuse Patient Records regulations: The Federal rules restrict any use of the information to criminally investigate or prosecute any alcohol or drug abuse patient.[facility] HealthcareIn the event this information is protected by the Federal Confidentiality of Alcohol and Drug Abuse Patient Records regulations: The Federal rules restrict any use of the information to criminally investigate or prosecute any alcohol or drug abuse patient.[facility] HealthcareIn the event this information is protected by the Federal Confidentiality of Alcohol and Drug Abuse Patient Records regulations: The Federal rules restrict any use of the information to criminally investigate or prosecute any alcohol or drug abuse patient.[facility] HealthcareIn the event this information is protected by the Federal Confidentiality of Alcohol and Drug Abuse Patient Records regulations: The Federal rules restrict any use of the information to criminally investigate or prosecute any alcohol or drug abuse patient.[facility] HealthcareIn the event this information is protected by the Federal Confidentiality of Alcohol and Drug Abuse Patient Records regulations: The Federal rules restrict any use of the information to criminally investigate or prosecute any alcohol or drug abuse patient.[facility] HealthcareIn the event this information is protected by the Federal Confidentiality of Alcohol and Drug Abuse Patient Records regulations: The Federal rules restrict any use of the information to criminally investigate or prosecute any alcohol or drug abuse patient.[facility] HealthcareIn the event this information is protected by the Federal Confidentiality of Alcohol and Drug Abuse Patient Records regulations: The Federal rules restrict any use of the information to criminally investigate or prosecute any alcohol or drug abuse patient.[facility] HealthcareIn the event this information is protected by the Federal Confidentiality of Alcohol and Drug Abuse Patient Records regulations: The Federal rules restrict any use of the information to criminally investigate or prosecute any alcohol or drug abuse patient.[facility] HealthcareIn the event this information is protected by the Federal Confidentiality of Alcohol and Drug Abuse Patient Records regulations: The Federal rules restrict any use of the information to criminally investigate or prosecute any alcohol or drug abuse patient.[facility] HealthcareIn the event this information is protected by the Federal Confidentiality of Alcohol and Drug Abuse Patient Records regulations: The Federal rules restrict any use of the information to criminally investigate or prosecute any alcohol or drug abuse patient.[facility] HealthcareIn the event this information is protected by the Federal Confidentiality of Alcohol and Drug Abuse Patient Records regulations: The Federal rules restrict any use of the information to criminally investigate or prosecute any alcohol or drug abuse patient.[facility] HealthcareIn the event this information is protected by the Federal Confidentiality of Alcohol and Drug Abuse Patient Records regulations: The Federal rules restrict any use of the information to criminally investigate or prosecute any alcohol or drug abuse patient.[facility] HealthcareIn the event this information is protected by the Federal Confidentiality of Alcohol and Drug Abuse Patient Records regulations: The Federal rules restrict any use of the information to criminally investigate or prosecute any alcohol or drug abuse patient.[facility] HealthcareIn the event this information is protected by the Federal Confidentiality of Alcohol and Drug Abuse Patient Records regulations: The Federal rules restrict any use of the information to criminally investigate or prosecute any alcohol or drug abuse patient.[facility] HealthcareIn the event this information is protected by the Federal Confidentiality of Alcohol and Drug Abuse Patient Records regulations: The Federal rules restrict any use of the information to criminally investigate or prosecute any alcohol or drug abuse patient.[facility] HealthcareIn the event this information is protected by the Federal Confidentiality of Alcohol and Drug Abuse Patient Records regulations: The Federal rules restrict any use of the information to criminally investigate or prosecute any alcohol or drug abuse patient.[facility] HealthcareIn the event this information is protected by the Federal Confidentiality of Alcohol and Drug Abuse Patient Records regulations: The Federal rules restrict any use of the information to criminally investigate or prosecute any alcohol or drug abuse patient.[facility] HealthcareIn the event this information is protected by the Federal Confidentiality of Alcohol and Drug Abuse Patient Records regulations: The Federal rules restrict any use of the information to criminally investigate or prosecute any alcohol or drug abuse patient.[facility] HealthcareIn the event this information is protected by the Federal Confidentiality of Alcohol and Drug Abuse Patient Records regulations: The Federal rules restrict any use of the information to criminally investigate or prosecute any alcohol or drug abuse patient.[facility] HealthcareIn the event this information is protected by the Federal Confidentiality of Alcohol and Drug Abuse Patient Records regulations: The Federal rules restrict any use of the information to criminally investigate or prosecute any alcohol or drug abuse patient.[facility] HealthcareIn the event this information is protected by the Federal Confidentiality of Alcohol and Drug Abuse Patient Records regulations: The Federal rules restrict any use of the information to criminally investigate or prosecute any alcohol or drug abuse patient.[facility] HealthcareIn the event this information is protected by the Federal Confidentiality of Alcohol and Drug Abuse Patient Records regulations: The Federal rules restrict any use of the information to criminally investigate or prosecute any alcohol or drug abuse patient.[facility] HealthcareIn the event this information is protected by the Federal Confidentiality of Alcohol and Drug Abuse Patient Records regulations: The Federal rules restrict any use of the information to criminally investigate or prosecute any alcohol or drug abuse patient.[facility] HealthcareIn the event this information is protected by the Federal Confidentiality of Alcohol and Drug Abuse Patient Records regulations: The Federal rules restrict any use of the information to criminally investigate or prosecute any alcohol or drug abuse patient.[facility] HealthcareIn the event this information is protected by the Federal Confidentiality of Alcohol and Drug Abuse Patient Records regulations: The Federal rules restrict any use of the information to criminally investigate or prosecute any alcohol or drug abuse patient.[facility] HealthcareIn the event this information is protected by the Federal Confidentiality of Alcohol and Drug Abuse Patient Records regulations: The Federal rules restrict any use of the information to criminally investigate or prosecute any alcohol or drug abuse patient.[facility] HealthcareIn the event this information is protected by the Federal Confidentiality of Alcohol and Drug Abuse Patient Records regulations: The Federal rules restrict any use of the information to criminally investigate or prosecute any alcohol or drug abuse patient.[facility] HealthcareIn the event this information is protected by the Federal Confidentiality of Alcohol and Drug Abuse Patient Records regulations: The Federal rules restrict any use of the information to criminally investigate or prosecute any alcohol or drug abuse patient.[facility] HealthcareIn the event this information is protected by the Federal Confidentiality of Alcohol and Drug Abuse Patient Records regulations: The Federal rules restrict any use of the information to criminally investigate or prosecute any alcohol or drug abuse patient.[facility] HealthcareIn the event this information is protected by the Federal Confidentiality of Alcohol and Drug Abuse Patient Records regulations: The Federal rules restrict any use of the information to criminally investigate or prosecute any alcohol or drug abuse patient.[facility] HealthcareIn the event this information is protected by the Federal Confidentiality of Alcohol and Drug Abuse Patient Records regulations: The Federal rules restrict any use of the information to criminally investigate or prosecute any alcohol or drug abuse patient.[facility] HealthcareIn the event this information is protected by the Federal Confidentiality of Alcohol and Drug Abuse Patient Records regulations: The Federal rules restrict any use of the information to criminally investigate or prosecute any alcohol or drug abuse patient.[facility] HealthcareIn the event this information is protected by the Federal Confidentiality of Alcohol and Drug Abuse Patient Records regulations: The Federal rules restrict any use of the information to criminally investigate or prosecute any alcohol or drug abuse patient.[facility] HealthcareIn the event this information is protected by the Federal Confidentiality of Alcohol and Drug Abuse Patient Records regulations: The Federal rules restrict any use of the information to criminally investigate or prosecute any alcohol or drug abuse patient.[facility] HealthcareIn the event this information is protected by the Federal Confidentiality of Alcohol and Drug Abuse Patient Records regulations: The Federal rules restrict any use of the information to criminally investigate or prosecute any alcohol or drug abuse patient.[facility] HealthcareIn the event this information is protected by the Federal Confidentiality of Alcohol and Drug Abuse Patient Records regulations: The Federal rules restrict any use of the information to criminally investigate or prosecute any alcohol or drug abuse patient.[facility] HealthcareIn the event this information is protected by the Federal Confidentiality of Alcohol and Drug Abuse Patient Records regulations: The Federal rules restrict any use of the information to criminally investigate or prosecute any alcohol or drug abuse patient.[facility] HealthcareIn the event this information is protected by the Federal Confidentiality of Alcohol and Drug Abuse Patient Records regulations: The Federal rules restrict any use of the information to criminally investigate or prosecute any alcohol or drug abuse patient.[facility] HealthcareIn the event this information is protected by the Federal Confidentiality of Alcohol and Drug Abuse Patient Records regulations: The Federal rules restrict any use of the information to criminally investigate or prosecute any alcohol or drug abuse patient.[facility] HealthcareIn the event this information is protected by the Federal Confidentiality of Alcohol and Drug Abuse Patient Records regulations: The Federal rules restrict any use of the information to criminally investigate or prosecute any alcohol or drug abuse patient.[facility] HealthcareIn the event this information is protected by the Federal Confidentiality of Alcohol and Drug Abuse Patient Records regulations: The Federal rules restrict any use of the information to criminally investigate or prosecute any alcohol or drug abuse patient.[facility] HealthcareIn the event this information is protected by the Federal Confidentiality of Alcohol and Drug Abuse Patient Records regulations: The Federal rules restrict any use of the information to criminally investigate or prosecute any alcohol or drug abuse patient.[facility] HealthcareIn the event this information is protected by the Federal Confidentiality of Alcohol and Drug Abuse Patient Records regulations: The Federal rules restrict any use of the information to criminally investigate or prosecute any alcohol or drug abuse patient.[facility] HealthcareIn the event this information is protected by the Federal Confidentiality of Alcohol and Drug Abuse Patient Records regulations: The Federal rules restrict any use of the information to criminally investigate or prosecute any alcohol or drug abuse patient.[facility] HealthcareIn the event this information is protected by the Federal Confidentiality of Alcohol and Drug Abuse Patient Records regulations: The Federal rules restrict any use of the information to criminally investigate or prosecute any alcohol or drug abuse patient.[facility] HealthcareIn the event this information is protected by the Federal Confidentiality of Alcohol and Drug Abuse Patient Records regulations: The Federal rules restrict any use of the information to criminally investigate or prosecute any alcohol or drug abuse patient.[facility] HealthcareIn the event this information is protected by the Federal Confidentiality of Alcohol and Drug Abuse Patient Records regulations: The Federal rules restrict any use of the information to criminally investigate or prosecute any alcohol or drug abuse patient.[facility] HealthcareIn the event this information is protected by the Federal Confidentiality of Alcohol and Drug Abuse Patient Records regulations: The Federal rules restrict any use of the information to criminally investigate or prosecute any alcohol or drug abuse patient.[facility] HealthcareIn the event this information is protected by the Federal Confidentiality of Alcohol and Drug Abuse Patient Records regulations: The Federal rules restrict any use of the information to criminally investigate or prosecute any alcohol or drug abuse patient.[facility] HealthcareIn the event this information is protected by the Federal Confidentiality of Alcohol and Drug Abuse Patient Records regulations: The Federal rules restrict any use of the information to criminally investigate or prosecute any alcohol or drug abuse patient.[facility] HealthcareIn the event this information is protected by the Federal Confidentiality of Alcohol and Drug Abuse Patient Records regulations: The Federal rules restrict any use of the information to criminally investigate or prosecute any alcohol or drug abuse patient.[facility] HealthcareIn the event this information is protected by the Federal Confidentiality of Alcohol and Drug Abuse Patient Records regulations: The Federal rules restrict any use of the information to criminally investigate or prosecute any alcohol or drug abuse patient.[facility] HealthcareIn the event this information is protected by the Federal Confidentiality of Alcohol and Drug Abuse Patient Records regulations: The Federal rules restrict any use of the information to criminally investigate or prosecute any alcohol or drug abuse patient.[facility] HealthcareIn the event this information is protected by the Federal Confidentiality of Alcohol and Drug Abuse Patient Records regulations: The Federal rules restrict any use of the information to criminally investigate or prosecute any alcohol or drug abuse patient.[facility] HealthcareIn the event this information is protected by the Federal Confidentiality of Alcohol and Drug Abuse Patient Records regulations: The Federal rules restrict any use of the information to criminally investigate or prosecute any alcohol or drug abuse patient.[facility] HealthcareIn the event this information is protected by the Federal Confidentiality of Alcohol and Drug Abuse Patient Records regulations: The Federal rules restrict any use of the information to criminally investigate or prosecute any alcohol or drug abuse patient.[facility] HealthcareIn the event this information is protected by the Federal Confidentiality of Alcohol and Drug Abuse Patient Records regulations: The Federal rules restrict any use of the information to criminally investigate or prosecute any alcohol or drug abuse patient.[facility] HealthcareIn the event this information is protected by the Federal Confidentiality of Alcohol and Drug Abuse Patient Records regulations: The Federal rules restrict any use of the information to criminally investigate or prosecute any alcohol or drug abuse patient.[facility] HealthcareIn the event this information is protected by the Federal Confidentiality of Alcohol and Drug Abuse Patient Records regulations: The Federal rules restrict any use of the information to criminally investigate or prosecute any alcohol or drug abuse patient.[facility] HealthcareIn the event this information is protected by the Federal Confidentiality of Alcohol and Drug Abuse Patient Records regulations: The Federal rules restrict any use of the information to criminally investigate or prosecute any alcohol or drug abuse patient.[facility] HealthcareIn the event this information is protected by the Federal Confidentiality of Alcohol and Drug Abuse Patient Records regulations: The Federal rules restrict any use of the information to criminally investigate or prosecute any alcohol or drug abuse patient.[facility] HealthcareIn the event this information is protected by the Federal Confidentiality of Alcohol and Drug Abuse Patient Records regulations: The Federal rules restrict any use of the information to criminally investigate or prosecute any alcohol or drug abuse patient.[facility] HealthcareIn the event this information is protected by the Federal Confidentiality of Alcohol and Drug Abuse Patient Records regulations: The Federal rules restrict any use of the information to criminally investigate or prosecute any alcohol or drug abuse patient.[facility] HealthcareIn the event this information is protected by the Federal Confidentiality of Alcohol and Drug Abuse Patient Records regulations: The Federal rules restrict any use of the information to criminally investigate or prosecute any alcohol or drug abuse patient.[facility] HealthcareIn the event this information is protected by the Federal Confidentiality of Alcohol and Drug Abuse Patient Records regulations: The Federal rules restrict any use of the information to criminally investigate or prosecute any alcohol or drug abuse patient.[facility] HealthcareIn the event this information is protected by the Federal Confidentiality of Alcohol and Drug Abuse Patient Records regulations: The Federal rules restrict any use of the information to criminally investigate or prosecute any alcohol or drug abuse patient.[facility] HealthcareIn the event this information is protected by the Federal Confidentiality of Alcohol and Drug Abuse Patient Records regulations: The Federal rules restrict any use of the information to criminally investigate or prosecute any alcohol or drug abuse patient.[facility] HealthcareIn the event this information is protected by the Federal Confidentiality of Alcohol and Drug Abuse Patient Records regulations: The Federal rules restrict any use of the information to criminally investigate or prosecute any alcohol or drug abuse patient.[facility] HealthcareIn the event this information is protected by the Federal Confidentiality of Alcohol and Drug Abuse Patient Records regulations: The Federal rules restrict any use of the information to criminally investigate or prosecute any alcohol or drug abuse patient.[facility] HealthcareIn the event this information is protected by the Federal Confidentiality of Alcohol and Drug Abuse Patient Records regulations: The Federal rules restrict any use of the information to criminally investigate or prosecute any alcohol or drug abuse patient.[facility] HealthcareIn the event this information is protected by the Federal Confidentiality of Alcohol and Drug Abuse Patient Records regulations: The Federal rules restrict any use of the information to criminally investigate or prosecute any alcohol or drug abuse patient.[facility] HealthcareIn the event this information is protected by the Federal Confidentiality of Alcohol and Drug Abuse Patient Records regulations: The Federal rules restrict any use of the information to criminally investigate or prosecute any alcohol or drug abuse patient.[facility] HealthcareIn the event this information is protected by the Federal Confidentiality of Alcohol and Drug Abuse Patient Records regulations: The Federal rules restrict any use of the information to criminally investigate or prosecute any alcohol or drug abuse patient.[facility] HealthcareIn the event this information is protected by the Federal Confidentiality of Alcohol and Drug Abuse Patient Records regulations: The Federal rules restrict any use of the information to criminally investigate or prosecute any alcohol or drug abuse patient.[facility] HealthcareIn the event this information is protected by the Federal Confidentiality of Alcohol and Drug Abuse Patient Records regulations: The Federal rules restrict any use of the information to criminally investigate or prosecute any alcohol or drug abuse patient.[facility] HealthcareIn the event this information is protected by the Federal Confidentiality of Alcohol and Drug Abuse Patient Records regulations: The Federal rules restrict any use of the information to criminally investigate or prosecute any alcohol or drug abuse patient.[facility] HealthcareIn the event this information is protected by the Federal Confidentiality of Alcohol and Drug Abuse Patient Records regulations: The Federal rules restrict any use of the information to criminally investigate or prosecute any alcohol or drug abuse patient.[facility] HealthcareIn the event this information is protected by the Federal Confidentiality of Alcohol and Drug Abuse Patient Records regulations: The Federal rules restrict any use of the information to criminally investigate or prosecute any alcohol or drug abuse patient.[facility] HealthcareIn the event this information is protected by the Federal Confidentiality of Alcohol and Drug Abuse Patient Records regulations: The Federal rules restrict any use of the information to criminally investigate or prosecute any alcohol or drug abuse patient.[facility] HealthcareIn the event this information is protected by the Federal Confidentiality of Alcohol and Drug Abuse Patient Records regulations: The Federal rules restrict any use of the information to criminally investigate or prosecute any alcohol or drug abuse patient.[facility] HealthcareIn the event this information is protected by the Federal Confidentiality of Alcohol and Drug Abuse Patient Records regulations: The Federal rules restrict any use of the information to criminally investigate or prosecute any alcohol or drug abuse patient.[facility] HealthcareIn the event this information is protected by the Federal Confidentiality of Alcohol and Drug Abuse Patient Records regulations: The Federal rules restrict any use of the information to criminally investigate or prosecute any alcohol or drug abuse patient.[facility] HealthcareIn the event this information is protected by the Federal Confidentiality of Alcohol and Drug Abuse Patient Records regulations: The Federal rules restrict any use of the information to criminally investigate or prosecute any alcohol or drug abuse patient.[facility] HealthcareIn the event this information is protected by the Federal Confidentiality of Alcohol and Drug Abuse Patient Records regulations: The Federal rules restrict any use of the information to criminally investigate or prosecute any alcohol or drug abuse patient.[facility] HealthcareIn the event this information is protected by the Federal Confidentiality of Alcohol and Drug Abuse Patient Records regulations: The Federal rules restrict any use of the information to criminally investigate or prosecute any alcohol or drug abuse patient.[facility] HealthcareIn the event this information is protected by the Federal Confidentiality of Alcohol and Drug Abuse Patient Records regulations: The Federal rules restrict any use of the information to criminally investigate or prosecute any alcohol or drug abuse patient.[facility] HealthcareIn the event this information is protected by the Federal Confidentiality of Alcohol and Drug Abuse Patient Records regulations: The Federal rules restrict any use of the information to criminally investigate or prosecute any alcohol or drug abuse patient.[facility] HealthcareIn the event this information is protected by the Federal Confidentiality of Alcohol and Drug Abuse Patient Records regulations: The Federal rules restrict any use of the information to criminally investigate or prosecute any alcohol or drug abuse patient.[facility] HealthcareIn the event this information is protected by the Federal Confidentiality of Alcohol and Drug Abuse Patient Records regulations: The Federal rules restrict any use of the information to criminally investigate or prosecute any alcohol or drug abuse patient.[facility] HealthcareIn the event this information is protected by the Federal Confidentiality of Alcohol and Drug Abuse Patient Records regulations: The Federal rules restrict any use of the information to criminally investigate or prosecute any alcohol or drug abuse patient.[facility] HealthcareIn the event this information is protected by the Federal Confidentiality of Alcohol and Drug Abuse Patient Records regulations: The Federal rules restrict any use of the information to criminally investigate or prosecute any alcohol or drug abuse patient.[facility] HealthcareIn the event this information is protected by the Federal Confidentiality of Alcohol and Drug Abuse Patient Records regulations: The Federal rules restrict any use of the information to criminally investigate or prosecute any alcohol or drug abuse patient.[facility] HealthcareIn the event this information is protected by the Federal Confidentiality of Alcohol and Drug Abuse Patient Records regulations: The Federal rules restrict any use of the information to criminally investigate or prosecute any alcohol or drug abuse patient.[facility] HealthcareIn the event this information is protected by the Federal Confidentiality of Alcohol and Drug Abuse Patient Records regulations: The Federal rules restrict any use of the information to criminally investigate or prosecute any alcohol or drug abuse patient.[facility] HealthcareIn the event this information is protected by the Federal Confidentiality of Alcohol and Drug Abuse Patient Records regulations: The Federal rules restrict any use of the information to criminally investigate or prosecute any alcohol or drug abuse patient.Kindred HealthcareIn the event this information is protected by the Federal Confidentiality of Alcohol and Drug Abuse Patient Records regulations: The Federal rules restrict any use of the information to criminally investigate or prosecute any alcohol or drug abuse patient.Kindred HealthcareIn the event this information is protected by the Federal Confidentiality of Alcohol and Drug Abuse Patient Records regulations: The Federal rules restrict any use of the information to criminally investigate or prosecute any alcohol or drug abuse patient.Kindred HealthcareIn the event this information is protected by the Federal Confidentiality of Alcohol and Drug Abuse Patient Records regulations: The Federal rules restrict any use of the information to criminally investigate or prosecute any alcohol or drug abuse patient.Kindred HealthcareIn the event this information is protected by the Federal Confidentiality of Alcohol and Drug Abuse Patient Records regulations: The Federal rules restrict any use of the information to criminally investigate or prosecute any alcohol or drug abuse patient.Kindred HealthcareIn the event this information is protected by the Federal Confidentiality of Alcohol and Drug Abuse Patient Records regulations: The Federal rules restrict any use of the information to criminally investigate or prosecute any alcohol or drug abuse patient.Kindred HealthcareIn the event this information is protected by the Federal Confidentiality of Alcohol and Drug Abuse Patient Records regulations: The Federal rules restrict any use of the information to criminally investigate or prosecute any alcohol or drug abuse patient.Kindred HealthcareIn the event this information is protected by the Federal Confidentiality of Alcohol and Drug Abuse Patient Records regulations: The Federal rules restrict any use of the information to criminally investigate or prosecute any alcohol or drug abuse patient.[facility] Reason for Visit (unrecogniz ed section and [...] incontinence Procedures CONSULT TO URO GYNECOLOGY OFFICE/OUTPATIENT [facility] 60-74 MINUTES Jayde Hebert MD [address] [place] [address] Referral ID Status Reason Start Date Expiration Date V isits Requested Visits Authorized [id number] Closed PCP Requested Referral Auto-Generated Referral 08/30/2021 11/28/2021 1 1 Reason Comments Anticoagulation Telephone Fu home INR Reason Comments Consult Specialty Diagnoses / Procedures Referred By Contac t Referred To Contact Infectious Diseases Diagnoses Recurrent UTI History of ESBL E. coli infection Procedures CONSULT TO INFECTIOUS DISEASES OFFICE/OUTPATIENT NEW HIGH MDM 60-74 MINUTES Basilia Hernández MD [address] [facility] [place] [address] Referral ID Status Reason Start Date Expiration Date V isits Requested Visits Authorized [id number] Closed PCP Requested Referral 09/26/2021 09/26/2022 1 1 Reason Onset Date Comments Anticoagulation Telephone Fu 10/15/2021 Agustín e INR Result Reason Comments High INR/lab order Reason Comments Release Of Medical Records Reason Comments Patient Question Reason Comments PAC TRANSFER OF CARE Reason Comments Blood Draw (CVAD) Reason Onset Date Comments Clerk Travel Reservations - Other 12/25/2021 Reason Comments Recurrent UTI [...] Iron malabsorption Sal Bonilla, DO [address] [facility] [place] [address] [facility] [address] [place] [address] Referral ID Status Reason Start Date Expiration Date V isits Requested Visits Authorized [id number] Authorized 03/24/2022 06/22/2022 99 99 Reason Comments Clerk Travel Reservations - Other Symptoms Reason Comments Follow Up [...] given.Wants injection today. Reason Comments Follow Up Mcnairy denies karly c concernsDaughter, Eloisa, concerned about Lasix managementRequires [...] Contac t Referred To Contact [facility] Diagnoses Rheumatoid arthritis involving multiple sites with positive rheumatoid factor (HCC) Procedures INJECTION, RENFLEXIS Thalia Monterroso MD [address] [place] [address] [place] [address] [place] [address] Referral ID Status Reason Start Date Expiration Date V isits Requested Visits Authorized [id number] Authorized 07/16/2023 03/16/2024 99 99 Specialty Diagnoses / Procedures Referred By Contac t Referred To Contact [facility] Diagnoses Rheumatoid arthritis involving multiple sites with positive rheumatoid factor (HCC) Procedures INJECTION, RENFLEXIS Thalia Monterroso MD [address] [place] [address] [facility] [address] [place] [address] Reason Comments Joint Pain Specialty Diagnoses / Procedures Referred By Contac t Referred To Contact Diagnoses Senile osteoporosis Thalia Monterroso MD [address] [place] [address] [facility] [address] [address] Referral ID Status Reason Start Date Expiration Date V isits Requested Visits Authorized [id number] Authorized 11/14/2023 02/12/2024 99 99 Reason Comments Established Patient Specialty Diagnoses / Procedures Referred By Contac t Referred To Contact Diagnoses 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 Cassidy Arreola APRN.[employer]E [employer]PARER [address] [place] [address] [facility] [address] [place] [address] Referral ID Status Reason Start Date Expiration Date V isits Requested Visits Authorized [id number] Authorized 02/24/2024 05/24/2024 99 99 Specialty Diagnoses / Procedures [facility] Referred To Contact Diagnoses 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 Cassidy Arreola APRN.[employer]E T[employer] PREPARER [address] [place] [address] [facility] [address] [place] [address] Specialty Diagnoses / Procedures [facility] Referred To Contact CT IMAGING Diagnoses Iron deficiency anemia due to chronic blood loss Bilateral hip pain Generalized abdominal pain Abdominal bloating Personal history of breast cancer Occult blood in stools Procedures CT CHEST W IVCON DIAGNOSTIC COMPUTED TOMOGRAPHY THORAX W/CONTRAST Cassidy Arreola APRN.INCOME T[employer] PREPARER [address] [place] [address] [place] [address] Referral ID Status Reason Start Date Expiration Date V isits Requested Visits Authorized [id number] Closed Auto-Generate d Referral 02/24/2024 03/25/2025 [address] Specialty Diagnoses / Procedures Referred By Contac t Referred To Contact CT IMAGING Diagnoses Iron deficiency anemia due to chronic blood loss Bilateral hip pain Generalized abdominal pain Abdominal bloating Personal history of breast cancer Occult blood in stools Procedures CT CHEST W IVCON DIAGNOSTIC COMPUTED TOMOGRAPHY THORAX W/CONTRAST Cassidy Arreola APRN.INCOME TAX PREPARER [address] [place] [address] [place] [address] Reason Comments Joint Pain Reason Comments Scheduling Care Teams (unrecognized sec tion and content) Associate Professor Of Psychology Relationship Specialty Start Date End Date Galina Iraheta MD [address] [place] [address] PCP - General Internal Medicine 01/15/16 13, Pharmacist [phone] [place] [address] Pharmacist Pharmacy 08/22/20 Associate Professor Of Psychology Relationship Specialty Start Date End Date Galina Iraheta MD [address] [place] [address] PCP - General Internal Medicine 01/15/16 13, Pharmacist [phone] [place] [address] Pharmacist Pharmacy 08/22/20 Associate Professor Of Psychology Relationship Specialty Start Date End Date Galina Iraheta MD [facility] [place] [address] PCP - General Internal Medicine 01/15/16 13, Pharmacist [phone] [place] [address] Pharmacist Pharmacy 08/22/20 Associate Professor Of Psychology Relationship Specialty Start Date End Date Galina Iraheta MD [address] [place] [address] PCP - General Internal Medicine 01/15/16 13, Pharmacist [phone] [place] [address] Pharmacist Pharmacy 08/22/20 Associate Professor Of Psychology Relationship Specialty Start Date End Date Galina Iraheta MD [address] [place] [address] PCP - General Internal Medicine 01/15/16 13, Pharmacist [phone] [place] [address] Pharmacist Pharmacy 08/22/20 Associate Professor Of Psychology Relationship Specialty Start Date End Date Galina Iraheta MD [facility] [place] [address] PCP - General Internal Medicine 01/15/16 13, Pharmacist [phone] [facility] [place] [address] Pharmacist Pharmacy 08/22/20 Associate Professor Of Psychology Relationship Specialty Start Date End Date Galina Iraheta MD [address] [place] [address] PCP - General Internal Medicine 01/15/16 13, Pharmacist [phone] [place] [address] Pharmacist Pharmacy 08/22/20 Associate Professor Of Psychology Relationship Specialty Start Date End Date Galina Iraheta MD [address] [place] [address] PCP - General Internal Medicine 01/15/16 13, Pharmacist [phone] [place] [address] Pharmacist Pharmacy 08/22/20 Associate Professor Of Psychology Relationship Specialty Start Date End Date Galina Iraheta MD [address] [place] [address] PCP - General Internal Medicine 01/15/16 13, Pharmacist [phone] [place] [address] Pharmacist Pharmacy 08/22/20 Associate Professor Of Psychology Relationship Specialty Start Date End Date Galina Iraheta MD [address] [place] [address] PCP - General Internal Medicine 01/15/16 13, Pharmacist [phone] [place] [address] Pharmacist Pharmacy 08/22/20 Associate Professor Of Psychology Relationship Specialty Start Date End Date Galina Iraheta MD [address] [place] [address] PCP - General Internal Medicine 01/15/16 13, Pharmacist [phone] [place] [address] Pharmacist Pharmacy 08/22/20 Associate Professor Of Psychology Relationship Specialty Start Date End Date Galina Iraheta MD [address] [place] [address] PCP - General Internal Medicine 01/15/16 13, Pharmacist [phone] [place] [address] Pharmacist Pharmacy 08/22/20 Associate Professor Of Psychology Relationship Specialty Start Date End Date Galina Iraheta MD [address] [place] [address] PCP - General Internal Medicine 01/15/16 13, Pharmacist [phone] [place] [address] Pharmacist Pharmacy 08/22/20 Associate Professor Of Psychology Relationship Specialty Start Date End Date Galina Iraheta MD [address] [place] [address] PCP - General Internal Medicine 01/15/16 13, Pharmacist [phone] [place] [address] Pharmacist Pharmacy 08/22/20 Associate Professor Of Psychology Relationship Specialty Start Date End Date Galina Iraheta MD [address] [place] [address] PCP - General Internal Medicine 01/15/16 13, Pharmacist [phone] [place] [address], [place] [address] Pharmacist Pharmacy 08/22/20 Associate Professor Of Psychology Relationship Specialty Start Date End Date Galina Iraheta MD [address] [place] [address] PCP - General Internal Medicine 01/15/16 13, Pharmacist [phone] [place] [address] Pharmacist Pharmacy 08/22/20 Associate Professor Of Psychology Relationship Specialty Start Date End Date Galina Iraheta MD [address] [place] [address] PCP - General Internal Medicine 01/15/16 13, Pharmacist [phone] [place] [address] Pharmacist Pharmacy 08/22/20 Associate Professor Of Psychology Relationship Specialty Start Date End Date Galina Iraheta MD [address] [place] [address] PCP - General Internal Medicine 01/15/16 13, Pharmacist [phone] [place] [address] Pharmacist Pharmacy 08/22/20 Associate Professor Of Psychology Relationship Specialty Start Date End Date Galina Iraheta MD [address] [place] [address] PCP - General Internal Medicine 01/15/16 13, Pharmacist [phone] [place] [address] Pharmacist Pharmacy 08/22/20 Associate Professor Of Psychology Relationship Specialty Start Date End Date Galina Iraheta MD [address] [place] [address] PCP - General Internal Medicine 01/15/16 13, Pharmacist [phone] [place] [address] Pharmacist Pharmacy 08/22/20 Associate Professor Of Psychology Relationship Specialty Start Date End Date Galina Iraheta MD [address] [place] [address] PCP - General Internal Medicine 01/15/16 13, Pharmacist [phone] [place] [address] Pharmacist Pharmacy 08/22/20 Associate Professor Of Psychology Relationship Specialty Start Date End Date Galina Iraheta MD [address] [place] [address] PCP - General Internal Medicine 01/15/16 13, Pharmacist [phone] [place] [address] Pharmacist Pharmacy 08/22/20 Associate Professor Of Psychology Relationship Specialty Start Date End Date Galina Iraheta MD [address] [place] [address] PCP - General Internal Medicine 01/15/16 13, Pharmacist [phone] [facility] [place] [address] Pharmacist Pharmacy 08/22/20 Associate Professor Of Psychology Relationship Specialty Start Date End Date Galina Iraheta MD [address] [place] [address] PCP - General Internal Medicine 01/15/16 13, Pharmacist [phone] [place] [address] Pharmacist Pharmacy 08/22/20 Associate Professor Of Psychology Relationship Specialty Start Date End Date Galina Iraheta MD [address] [place] [address] PCP - General Internal Medicine 01/15/16 13, Pharmacist [phone] [place] [address] Pharmacist Pharmacy 08/22/20 Associate Professor Of Psychology Relationship Specialty Start Date End Date Galina Iraheta MD [address] [place] [address] PCP - General Internal Medicine 01/15/16 13, Pharmacist [phone] [place] [address] Pharmacist Pharmacy 08/22/20 Associate Professor Of Psychology Relationship Specialty Start Date End Date Galina Iraheta MD [address] [place] [address] PCP - General Internal Medicine 01/15/16 13, Pharmacist [phone] [place] [address] Pharmacist Pharmacy 08/22/20 Associate Professor Of Psychology Relationship Specialty Start Date End Date Galina Iraheta MD [address] [place] [address] PCP - General Internal Medicine 01/15/16 13, Pharmacist [phone] [place] [address] Pharmacist Pharmacy 08/22/20 Associate Professor Of Psychology Relationship Specialty Start Date End Date Galina Iraheta MD [address] [facility] [place] [address] PCP - General Internal Medicine 01/15/16 13, Pharmacist [phone] [place] [address] Pharmacist Pharmacy 08/22/20 Associate Professor Of Psychology Relationship Specialty Start Date End Date Galina Iraheta MD [address] [facility] [place] [address] PCP - General Internal Medicine 01/15/16 Associate Professor Of Psychology Relationship Specialty Start Date End Date Galina Iraheta MD [address] [facility] [place] [address] PCP - General Internal Medicine 01/15/16 Associate Professor Of Psychology Relationship Specialty Start Date End Date Glaina Iraheta MD [address] [place] [address] PCP - General Internal Medicine 01/15/16 Associate Professor Of Psychology Relationship Specialty Start Date End Date Galina Iraheta MD [address] [facility] [place] [address] PCP - General Internal Medicine 01/15/16 Associate Professor Of Psychology Relationship Specialty Start Date End Date Galina Iraheta MD [address] [facility] [place] [address] PCP - General Internal Medicine 01/15/16 Associate Professor Of Psychology Relationship Specialty Start Date End Date Galina Iraheta MD [address] [facility] [place] [address] PCP - General Internal Medicine 01/15/16 Associate Professor Of Psychology Relationship Specialty Start Date End Date Galina Iraheta MD [address] [facility] [place] [address] PCP - General Internal Medicine 01/15/16 Associate Professor Of Psychology Relationship Specialty Start Date End Date Galina Iraheta MD [address] [place] [address] PCP - General Internal Medicine 01/15/16 Associate Professor Of Psychology Relationship Specialty Start Date End Date Galina Iraheta MD [address] [place] [address] PCP - General Internal Medicine 01/15/16 Associate Professor Of Psychology Relationship Specialty Start Date End Date Galina Iraheta MD [address] [place] [address] PCP - General Internal Medicine 01/15/16 Sal Bonilla, DO [address] [place] [address] Hematology/Oncology 03/22/22 Associate Professor Of Psychology Relationship Specialty Start Date End Date Galina Iraheta MD [address] [place] [address] PCP - General Internal Medicine 01/15/16 Sal Bonilla, DO [address] [place] [address] Hematology/Oncology 03/22/22 Associate Professor Of Psychology Relationship Specialty Start Date End Date Galina Iraheta MD [address] [place] [address] PCP - General Internal Medicine 01/15/16 Sal Bonilla, DO [address] [place] [address] Hematology/Oncology 03/22/22 Team Status: Active Member Role Status Dates Dr. Galina Iraheta MD Family Provider Active Dr. Galina Iraheta MD Primary Care Provider Active Team Status: Inactive Member Role Status Dates Dr. Galina Iraheta MD Primary Care Provider Active Galina Horner [employer], [employer]-C Attending Provider Active Team Status: Inactive Member [...] MD Primary Care Provider Active Galina Horner [employer] HELPER, [employer] Attending Provider, Referring Provider Active Team Status: Active Member Role Status Dates Dr. Galina Iraheta MD Primary Care Provider Active Reji Reyna MD Attending Provider Active Associate Professor Of Psychology Relationship Specialty Start Date End Date Galina Iraheta MD [address] [facility] [place] [address] PCP - General Internal Medicine 01/15/16 Sal Bonilla, DO [address] [facility] [place] [address] Hematology/Oncology 03/22/22 Associate Professor Of Psychology Relationship Specialty Start Date End Date Galina Iraheta MD [address] [facility] [place] [address] PCP - General Internal Medicine 01/15/16 Sal Bonilla, DO [address] [facility] [place] [address] Hematology/Oncology 03/22/22 Associate Professor Of Psychology Relationship Specialty Start Date End Date Galina Iraheta MD [address] [facility] [place] [address] PCP - General Internal Medicine 01/15/16 Sal Bonilla, DO [address] [facility] [place] [address] Hematology/Oncology 03/22/22 Associate Professor Of Psychology Relationship Specialty Start Date End Date Galina Iraheta MD [address] [facility] [place] [address] PCP - General Internal Medicine 01/15/16 Sal Bonilla, DO [address] [place] [address] Hematology/Oncology 03/22/22 Associate Professor Of Psychology Relationship Specialty Start Date End Date Galina Iraheta MD [address] [place] [address] PCP - General Internal Medicine 01/15/16 Sal Bonilla, DO [address] [place] [address] Hematology/Oncology 03/22/22 Associate Professor Of Psychology Relationship Specialty Start Date End Date Galina Iraheta MD [address] [place] [address] PCP - General Internal Medicine 01/15/16 Sal Bonilla, DO [address] [place] [address] Hematology/Oncology 03/22/22 Associate Professor Of Psychology Relationship Specialty Start Date End Date Galina Iraheta MD [address] [place] [address] PCP - General Internal Medicine 01/15/16 Sal Bonilla, DO [address] [place] [address] Hematology/Oncology 03/22/22 Team Status: Inactive Member Role [...] Active Reji POPE MD Attending Provider Active Associate Professor Of Psychology Relationship Specialty Start Date End Date Galina Iraheta MD [address] [place] [address] PCP - General Internal Medicine 01/15/16 Sal Bonilla DO [address] [place] [address] Hematology/Oncology 03/22/22 Associate Professor Of Psychology Relationship Specialty Start Date End Date Galina Iraheta MD [address] [place] [address] PCP - General Internal Medicine 01/15/16 Sal Bonilla DO [address] [place] [address] Hematology/Oncology 03/22/22 Associate Professor Of Psychology Relationship Specialty Start Date End Date Galina Iraheta MD [address] [place] [address] PCP - General Internal Medicine 01/15/16 Sal Bonilla DO [address] [place] [address] Hematology/Oncology 03/22/22 Associate Professor Of Psychology Relationship Specialty Start Date End Date Galina Iraheta MD [address] [place] [address] PCP - General Internal Medicine 01/15/16 Sal Bonilla DO [address] [place] [address] Hematology/Oncology 03/22/22 Associate Professor Of Psychology Relationship Specialty Start Date End Date Galina Iraheta MD [address] [place] [address] PCP - General Internal Medicine 01/15/16 Sal Bonilla DO [address] [place] [address] Hematology/Oncology 03/22/22 Associate Professor Of Psychology Relationship Specialty Start Date End Date Galina Iraheta MD [address] [place] [address] PCP - General Internal Medicine 01/15/16 Sal Bonilla DO [address] [place] [address] Hematology/Oncology 03/22/22 Associate Professor Of Psychology Relationship Specialty Start Date End Date Galina Iraheta MD [address] [place] [address] PCP - General Internal Medicine 01/15/16 Sal Bonilla DO [address] [place] [address] Hematology/Oncology 03/22/22 Associate Professor Of Psychology Relationship Specialty Start Date End Date Galina Iraheta MD [address] [place] [address] PCP - General Internal Medicine 01/15/16 Sal Bonilla DO [address] [place] [address] Hematology/Oncology 03/22/22 Associate Professor Of Psychology Relationship Specialty Start Date End Date Galina Iraheta MD [address] [place] [address] PCP - General Internal Medicine 01/15/16 Sal Bonilla DO [address] [place] [address] Hematology/Oncology 03/22/22 Associate Professor Of Psychology Relationship Specialty Start Date End Date Reji Reyna MD [address] [place] [address] PCP - General Internal Medicine 02/24/23 Sal Bonilla DO [address] [place] [address] Hematology/Oncology 03/22/22 Associate Professor Of Psychology Relationship Specialty Start Date End Date Reji Reyna MD [address] [place] [address] PCP - General Internal Medicine 02/24/23 Sal Bonilla DO [address] [place] [address] Hematology/Oncology 03/22/22 Associate Professor Of Psychology Relationship Specialty Start Date End Date Reji Reyna MD [address] [place] [address] PCP - General Internal Medicine 02/24/23 Sal Bonilla DO [address] [place] [address] Hematology/Oncology 03/22/22 Associate Professor Of Psychology Relationship Specialty Start Date End Date Reji Reyna MD [address] [place] [address] PCP - General Internal Medicine 02/24/23 Sal Bonilla DO [address] [place] [address] Hematology/Oncology 03/22/22 Associate Professor Of Psychology Relationship Specialty Start Date End Date Reji Reyna MD [address] [place] [address] PCP - General Internal Medicine 02/24/23 Sal Bonilla DO [address] [facility] [place] [address] Hematology/Oncology 03/22/22 Associate Professor Of Psychology Relationship Specialty Start Date End Date Reji Reyna MD [address] [place] [address] PCP - General Internal Medicine 02/24/23 Sal Bonilla DO [address] [place] [address] Hematology/Oncology 03/22/22 Associate Professor Of Psychology Relationship Specialty Start Date End Date Reji Reyna MD [address] [place] [address] PCP - General Internal Medicine 02/24/23 Sal Bonilla DO [address] [place] [address] Hematology/Oncology 03/22/22 Associate Professor Of Psychology Relationship Specialty Start Date End Date Reji Reyna MD [address] [place] [address] PCP - General Internal Medicine 02/24/23 Sal Bonilla DO [address] [place] [address] Hematology/Oncology 03/22/22 Associate Professor Of Psychology Relationship Specialty Start Date End Date Reji Reyna MD [address] [place] [address] PCP - General Internal Medicine 02/24/23 Sal Bonilla DO [address] [facility] [place] [address] Hematology/Oncology 03/22/22 Associate Professor Of Psychology Relationship Specialty Start Date End Date Reji Reyna MD [address] [place] [address] PCP - General Internal Medicine 02/24/23 Sal Bonilla DO [address] [facility] [place] [address] Hematology/Oncology 03/22/22 Associate Professor Of Psychology Relationship Specialty Start Date End Date Reji Reyna MD [address] [place] [address] PCP - General Internal Medicine 02/24/23 Sal Bonilla DO [address] [facility] [place] [address] Hematology/Oncology 03/22/22 Associate Professor Of Psychology Relationship Specialty Start Date End Date Reji Reyna MD [address] [place] [address] PCP - General Internal Medicine 02/24/23 Sal Bonilla DO [address] [place] [address] Hematology/Oncology 03/22/22 Associate Professor Of Psychology Relationship Specialty Start Date End Date Reji Reyna MD [address] [place] [address] PCP - General Internal Medicine 02/24/23 Sal Bonilla DO [address] [place] [address] Hematology/Oncology 03/22/22 Associate Professor Of Psychology Relationship Specialty Start Date End Date Reji Reyna MD [address] [place] [address] PCP - General Internal Medicine 02/24/23 Sal Bonilla DO [address] [place] [address] Hematology/Oncology 03/22/22 Associate Professor Of Psychology Relationship Specialty Start Date End Date Reji Reyna MD [address] [place] [address] PCP - General Internal Medicine 02/24/23 Sal Bonilla DO [address] [place] [address] Hematology/Oncology 03/22/22 Associate Professor Of Psychology Relationship Specialty Start Date End Date Reji Reyna MD [address] [place] [address] PCP - General Internal Medicine 02/24/23 Sal Bonilla DO [address] [facility] [place] [address] Hematology/Oncology 03/22/22 Associate Professor Of Psychology Relationship Specialty Start Date End Date Reji Reyna MD [address] [place] [address] PCP - General Internal Medicine 02/24/23 Sal Bonilla DO [address] [facility] [place] [address] Hematology/Oncology 03/22/22 Associate Professor Of Psychology Relationship Specialty Start Date End Date Reji Reyna MD [address] [place] [address] PCP - General Internal Medicine 02/24/23 Sal Bonilla DO [address] [facility] [place] [address] Hematology/Oncology 03/22/22 Associate Professor Of Psychology Relationship Specialty Start Date End Date Reji Reyna MD [address] [place] [address] PCP - General Internal Medicine 02/24/23 Sal Bonilla DO [address] [place], [place] [address] [phone] Hematology/Oncology 03/22/22 Associate Professor Of Psychology Relationship Specialty Start Date End Date Reji Reyna MD [address] [place], [place] [address]- PCP - General Internal Medicine 02/24/23 Sal Bonilla DO [address] [place] [address] Hematology/Oncology 03/22/22 Associate Professor Of Psychology Relationship Specialty Start Date End Date Reji Reyna MD [address] [place] [address] PCP - General Internal Medicine 02/24/23 Sal Bonilla DO [address] [place] [address] Hematology/Oncology 03/22/22 Associate Professor Of Psychology Relationship Specialty Start Date End Date Reji Reyna MD [address] [place] [address] PCP - General Internal Medicine 02/24/23 Sal Bonilla DO [address] [place] [address] Hematology/Oncology 03/22/22 Associate Professor Of Psychology Relationship Specialty Start Date End Date Reji Reyna MD [address] [place] [address] PCP - General Internal Medicine 02/24/23 Sal Bonilla DO [address] [place] [address] Hematology/Oncology 03/22/22 Associate Professor Of Psychology Relationship Specialty Start Date End Date Galina Iraheta MD [address] [facility] [place] [address] PCP - General Internal Medicine 01/15/16 02/23/23 13, Pharmacist [id number] [place] [address] Pharmacist Pharmacy 08/22/20 11/04/21 Associate Professor Of Psychology Relationship Specialty Start Date End Date Galina Iraheta MD [address] [place] [address] PCP - General Internal Medicine 01/15/16 02/23/23 13, Pharmacist [id number] [place] [address] Pharmacist Pharmacy 08/22/20 11/04/21 Associate Professor Of Psychology Relationship Specialty Start Date End Date Galina Iraheta MD [address] [place] [address] PCP - General Internal Medicine 01/15/16 02/23/23 Associate Professor Of Psychology Relationship Specialty Start Date End Date Reji Reyna MD [address] [place] [address] PCP - General Internal Medicine 02/24/23 Sal Bonilla DO [address] [place] [address] Hematology/Oncology 03/22/22 Associate Professor Of Psychology Relationship Specialty Start Date End Date Reji Reyna MD [address] [place] [place] [address] PCP - General Internal Medicine 02/24/23 Sal Bonilla DO [address] [place] [address] Hematology/Oncology 03/22/22 Associate Professor Of Psychology Relationship Specialty Start Date End Date Reji Reyna MD [address] [place] [address] PCP - General Internal Medicine 02/24/23 Sal Bonilla DO [address] [place] [address] Hematology/Oncology 03/22/22 Associate Professor Of Psychology Relationship Specialty Start Date End Date Reji Reyna MD [address] [place] [address] PCP - General Internal Medicine 02/24/23 Sal Bonilla DO [address] [place] [address] Hematology/Oncology 03/22/22 Associate Professor Of Psychology Relationship Specialty Start Date End Date Reji Reyna MD [address] [place] [address] PCP - General Internal Medicine 02/24/23 Sal Bonilla DO [address] [place] [address] Hematology/Oncology 03/22/22 Associate Professor Of Psychology Relationship Specialty Start Date End Date Reji Reyna MD [address] [place] [address] PCP - General Internal Medicine 02/24/23 Sal Bonilla DO [address] [place] [address] Hematology/Oncology 03/22/22 Associate Professor Of Psychology Relationship Specialty Start Date End Date Reji Reyna MD [address] [place] [address] PCP - General Internal Medicine 02/24/23 Sal Bonilla DO [address] [facility] [place] [address] Hematology/Oncology 03/22/22 Associate Professor Of Psychology Relationship Specialty Start Date End Date Reji Reyna MD [address] [place] [address] PCP - General Internal Medicine 02/24/23 Sal Bonilla DO [address] [facility] [place] [address] Hematology/Oncology 03/22/22 Associate Professor Of Psychology Relationship Specialty Start Date End Date Reji Reyna MD [address] [place] [address] PCP - General Internal Medicine 02/24/23 Sal Bonilla DO [address] [facility] [place] [address] Hematology/Oncology 03/22/22 Associate Professor Of Psychology Relationship Specialty Start Date End Date Reji Reyna MD [address] [place] [address] PCP - General Internal Medicine 02/24/23 Sal Bonilla DO [address] [facility] [place] [address] Hematology/Oncology 03/22/22 Associate Professor Of Psychology Relationship Specialty Start Date End Date Reji Reyna MD [address] [place] [address] PCP - General Internal Medicine 02/24/23 Sal Bonilla DO [address] [place] [address] Hematology/Oncology 03/22/22 Associate Professor Of Psychology Relationship Specialty Start Date End Date Reji Reyna MD [address] [place], [place] [address] PCP - General Internal Medicine 02/24/23 Sal Bonilla DO [address] [place], [place] [id number] Hematology/Oncology 03/22/22 Team Status: Active Member Role [...] 2024 End: May 13, 2024 Galina Horner [employer], [employer]-C Attending Provider Active Start: May 13, 2024 [...] August 18, 2024 End: August 18, 2024 Associate Professor Of Psychology Relationship Specialty Start Date End Date Reji Reyna MD [address] [place] [address] PCP - General Internal Medicine 02/24/23 Sal Bonilla DO [address] [place] [address] Hematology/Oncology 03/22/22 Team Status: Active Member Role [...] 2024 End: August 12, 2024 Galina Horner [employer], [employer]-C Attending Provider Active Start: August 12, 2024 End: August 12, 2024 Associate Professor Of Psychology Relationship Specialty Start Date End Date Reji Reyna MD [address] [place] [address] PCP - General Internal Medicine 02/24/23 Sal Bonilla DO [address] [place], [place] [address] Hematology/Oncology 03/22/22 Team Status: Active Member Role/Relationship Status Dates Galina Horner [employer], [employer]-C Primary Care Provider Active Team Status: Inactive [...] Status: Inactive Member Role/Relationship Status Dates Dr. Reji Reyna MD Primary Care Provider Active Start: August 12, 2024 End: August 12, 2024 Galina Horner NP [employer] Attending Provider Active Start: August 12, 2024 End: August 12, 2024 Team Status: Inactive Member Role/Relationship Status Dates Dr. Reji Reyna MD Primary Care Provider Active Start: August 13, 2024 End: August 13, 2024 Dr. Reji Reyna MD Referring Provider Active Start: August 13, 2024 End: August 13, 2024 OLIVE Waters Attending Provider Active Start: August 13, 2024 End: August 13, 2024 Team Status: Inactive Member Role/Relationship Status Dates Dr. Reji Reyna MD Primary Care Provider Active Start: August 13, 2024 End: August 13, 2024 Dr. Charles Ramos MD Attending Provider Active S tart: August 13, 2024 End: August 13, 2024 Team Status: Inactive Member Role/Relationship Status Dates Dr. Reji Reyna MD Primary Care Provider Active Start: August 18, 2024 End: August 18, 2024 Dr. Reji Reyna MD Referring Provider Active Start: August 18, 2024 End: August 18, 2024 SAVANNAH WatersC Attending Provider Active Start: August 18, 2024 End: August 18, 2024 Team Status: Inactive Member Role/Relationship Status Dates Dr. Reji Reyna MD Primary Care Provider Active Start: August 18, 2024 End: August 18, 2024 Dr. Charles Ramos MD Attending Provider Active S tart: August 18, 2024 End: August 18, 2024 Team Status: Active Member Role/Relationship Status Dates Dr. Reji Reyna MD Primary Care Provider Active Start: August 30, 2024 Reji POPE MD Attending Provider Active Start: August 30, 2024 Team Status: Inactive Member Role/Relationship Status Dates Dr. Reji Reyna MD Primary Care Provider Active Start: September 03, 2024 End: September 03, 2024 Dr. Reji Reyna MD Referring Provider Active Start: September 03, 2024 End: September 03, 2024 OLIVE Waters Attending Provider Active Start: September 03, 2024 End: September 03, 2024 Team Status: Inactive Member Role/Relationship Status Dates Dr. Reji Reyna MD Primary Care Provider Active Start: September 03, 2024 End: September 03, 2024 Dr. Charles Ramos MD Attending Provider Active S tart: September 03, 2024 End: September 03, 2024 Team Status: Inactive Member Role/Relationship Status Dates Dr. Reji Reyna MD Primary [...] 2024 End: September 14, 2024 Galina Horner [employer], [employer] Primary Care Provider Active Start: September 14, 2024 End: September 14, 2024 Team Status: Inactive Member Role/Relationship Status Dates Dr. Sung Torres DO Attending Provider Active Start: September 14, 2024 End: September 14, 2024 Dr. Sung Torres DO Emergency Provider Active Start: September 14, 2024 End: September 14, 2024 Galina Horner [employer], [employer]-C Primary Care Provider Active Start: September 14, 2024 End: September 14, 2024 Team Status: Active Member Role/Relationship Status Dates Dr. Reji Reyna MD Referring Provider Active Start: September 24, 2024 Carmella Deluca [employer]-C Attending Provider Active Start: September 24, 2024 Galina Horner [employer], [employer]-C Primary Care Provider Active Start: September 24, 2024 Team Status: Inactive Member Role/Relationship Status Dates Galina Horner [employer], [employer]-C Primary Care Provider Active Start: September 24, 2024 End: September 24, 2024 Dr. Charles Ramos MD Attending Provider Active S tart: September 24, 2024 End: September 24, 2024 Team Status: Inactive Member Role/Relationship Status Dates Dr. Reji Reyna MD Referring Provider Active Start: September 24, 2024 End: September 24, 2024 Carmella Deluca [employer]-C Attending Provider Active Start: September 24, 2024 End: September 24, 2024 Galina Horner [employer], [employer]-C Primary Care Provider Active Start: September 24, [...] Status: Inactive Member Role/Relationship Status Dates Dr. Reji Reyna MD Primary Care Provider Active Start: August 12, 2024 End: August 12, 2024 Galina Horner [employer], [employer]-C Attending Provider Active Start: August 12, 2024 End: August 12, 2024 Team Status: Inactive Member Role/Relationship Status Dates Dr. Reji Reyna MD Primary Care Provider Active Start: August 13, 2024 End: August 13, 2024 Dr. Reji Reyna MD Referring Provider Active Start: August 13, 2024 End: August 13, 2024 Carmella Deluca NP-C Attending Provider Active Start: August 13, 2024 End: August 13, 2024 Team Status: Inactive Member Role/Relationship Status Dates Dr. Reji Reyna MD Primary Care Provider Active Start: August 13, 2024 End: August 13, 2024 Dr. Charles Ramos MD Attending Provider Active S tart: August 13, 2024 End: August 13, 2024 Team Status: Inactive Member Role/Relationship Status Dates Galina Horner [employer], [employer]-C Primary Care Provider Active Start: August 16, 2024 End: August 16, 2024 Galina Horner [employer], [employer]-C Attending Provider Active Start: August 16, 2024 End: August 16, 2024 Team Status: Active Member Role/Relationship Status Dates Galina Horner NP, [employer]-C Primary Care Provider Active Start: October 04, 2024 Reji POPE MD Attending Provider Active Start: October [...] Status: Inactive Member Role/Relationship Status Dates Dr. Reji Reyna MD Primary Care Provider Active Start: August 12, 2024 End: August 12, 2024 Galina Horner [employer], [employer]-C Attending Provider Active Start: August 12, 2024 End: August 12, 2024 Team Status: Inactive Member Role/Relationship Status Dates Dr. Reji Reyna MD Primary Care Provider Active Start: August 13, 2024 End: August 13, 2024 Dr. Reji Reyna MD Referring Provider Active Start: August 13, 2024 End: August 13, 2024 Carmella Deluca NP-C Attending Provider Active Start: August 13, 2024 End: August 13, 2024 Team Status: Inactive Member Role/Relationship Status Dates Dr. Reji Reyna MD Primary Care Provider Active Start: August 13, 2024 End: August 13, 2024 Dr. Charles Ramos MD Attending Provider Active S tart: August 13, 2024 End: August 13, 2024 Team Status: Inactive Member Role/Relationship Status Dates Galina Horner [employer], [employer] HELPER-C Primary Care Provider Active Start: August 16, 2024 End: August 16, 2024 Galina Horner [employer], [employer] HELPER-C Attending Provider Active Start: August 16, 2024 End: August 16, 2024 Team Status: Inactive Member Role/Relationship Status Dates Dr. Reji Reyna MD Primary Care Provider Active Start: August 18, 2024 End: August 18, 2024 Dr. Reji Reyna MD Referring Provider Active Start: August 18, 2024 End: August 18, 2024 OLIVE Waters Attending Provider Active Start: August 18, 2024 End: August 18, 2024 Team Status: Inactive Member Role/Relationship Status Dates Dr. Reji Reyna MD Primary Care Provider Active Start: August 18, 2024 End: August 18, 2024 Dr. Charles Ramos MD Attending Provider Active S tart: August 18, 2024 End: August 18, 2024 Team Status: Active Member Role/Relationship Status Dates Dr. Reji Reyna MD Primary Care Provider Active Start: August 30, 2024 Reji POPE MD Attending Provider Active Start: August 30, 2024 Team Status: Inactive Member Role/Relationship Status Dates Dr. Reji Reyna MD Primary Care Provider Active Start: September 03, 2024 End: September 03, 2024 Dr. Reji Reyna MD Referring Provider Active Start: September 03, 2024 End: September 03, 2024 OLIVE Waters Attending Provider Active Start: September 03, 2024 End: September 03, 2024 Team Status: Inactive Member Role/Relationship Status Dates Dr. Reji Reyna MD Primary Care Provider Active Start: September 03, 2024 End: September 03, 2024 Dr. Charles Ramos MD Attending Provider Active S tart: September 03, 2024 End: September 03, 2024 Team Status: Inactive Member Role/Relationship Status Dates Dr. Reji Reyna MD Primary Care Provider Active Start: September 07, 2024 End: September 07, 2024 Dr. Reji Reyna MD Referring Provider Active Start: September 07, 2024 End: September 07, 2024 SAVANNAH FrankC Attending Provider Active Start: September 07, 2024 End: September 07, 2024 Team Status: Inactive Member Role/Relationship Status Dates Galina Horner NP [employer]-C Primary Care Provider Active Start: September 14, 2024 Dr. Hiwot Abdullahi MD Attending Provider Active Start: September 14, 2024 Team Status: Active Member Role/Relationship Status Dates Galina Horner [employer], [employer]-C Primary Care Provider Active Start: October 13, 2024 Carmella Deluca [employer]-C Attending Provider Active Start: October 13, 2024 Carmella Deluca , [employer]-C Referring Provider Active Start: October 13, 2024 Team Status: Active Member Role/Relationship Status Dates Galina Horner [employer], [employer]-C Primary Care Provider Active Start: October 22, 2024 Galina Horner [employer], [employer]PER-C Referring Provider Active Start: October 22, 2024 Carmella Deluca , [employer]-C Attending Provider Active Start: October 22, 2024 Team Status: Inactive Member Role/Relationship Status Dates Galina Horner [employer], [employer]-C Primary Care Provider Active Start: October 22, 2024 End: October 22, 2024 Dr. Charles Ramos MD Attending Provider Active S tart: October 22, 2024 End: October 22, 2024 Team Status: Inactive Member Role/Relationship Status Dates Galina Horner [employer], [employer] HEL[employer]-C Primary Care Provider Active Start: October 22, 2024 End: October 22, 2024 Galina Horner [employer], [employer] HELPER-C Referring Provider Active Start: October 22, 2024 End: October 22, 2024 Carmella Deluca , [employer]-C Attending Provider Active Start: October 22, 2024 End: October 22, 2024 Team Status: Inactive Member Role/Relationship Status Dates Galina Horner [employer], [employer] HEL[employer]-C Primary Care Provider Active Start: September 20, 2024 End: September 20, 2024 Galina Horner [employer], [employer]-C Attending Provider Active Start: September 20, 2024 End: September 20, 2024 Team Status: Inactive Member Role/Relationship Status Dates Dr. Reji Reyna MD Referring Provider Active Start: September 24, 2024 End: September 24, 2024 Carmella Deluca [employer]-C Attending Provider Active Start: September 24, 2024 End: September 24, 2024 Galina Horner [employer], [employer] HEL[employer]-C Primary Care Provider Active Start: September 24, 2024 End: September 24, 2024 Team Status: Inactive Member Role/Relationship Status Dates Galina Horner [employer], [employer]-C Primary Care Provider Active Start: September 24, 2024 End: September 24, 2024 Dr. Charles Ramos MD Attending Provider Active S tart: September 24, 2024 End: September 24, 2024 Team Status: Active Member Role/Relationship Status Dates Galina Horner [employer], [employer]-C Primary Care Provider Active Start: October 04, 2024 Reji POPE MD Attending Provider Active Start: October 04, 2024 Team Status: Active Member Role/Relationship Status Dates Galina Horner [employer], [employer]-C Primary Care Provider Active Start: October 13, 2024 Carmella Deluca [employer]-C Attending Provider Active Start: October 13, 2024 Carmella Deluca [employer]-C Referring Provider Active Start: October 13, 2024 Team Status: Inactive Member Role/Relationship Status Dates Galina Horner [employer], [employer]-C Primary Care Provider Active Start: October 22, 2024 End: October 22, 2024 Galina Horner [employer]PER, [employer]PER-C Referring Provider Active Start: October 22, 2024 End: October 22, 2024 Carmella Deluca [employer]-C Attending Provider Active Start: October 22, 2024 End: October 22, 2024 Team Status: Inactive Member Role/Relationship Status Dates Galina Horner [employer], [employer]-C Primary Care Provider Active Start: October 22, 2024 End: October 22, 2024 Dr. Charles Ramos MD Attending Provider Active S tart: October 22, 2024 End: October 22, 2024 Team Status: Inactive Member Role/Relationship Status Dates Galina Horner [employer], [employer]-C Primary Care Provider Active Start: September 22, 2024 End: September 22, 2024 Galina Horner [employer], [employer]-C Attending Provider Active Start: September 22, 2024 End: September 22, 2024 Team Status: Inactive Member Role/Relationship Status Dates Dr. Reji Reyna MD Referring Provider Active Start: September 24, 2024 End: September 24, 2024 Carmella Deluca [employer]-C Attending Provider Active Start: September 24, 2024 End: September 24, 2024 Galina Horner [employer], [employer]PER-C Primary Care Provider Active Start: September 24, 2024 End: September 24, 2024 Team Status: Inactive Member Role/Relationship Status Dates Galina Horner [employer], [employer]-C Primary Care Provider Active Start: September 24, 2024 End: September 24, 2024 Dr. Charles Ramos MD Attending Provider Active S tart: September 24, 2024 End: September 24, 2024 Team Status: Active Member Role/Relationship Status Dates Galina Horner [employer], [employer]-C Primary Care Provider Active Start: October 04, 2024 Reji POPE MD Attending Provider Active Start: October 04, 2024 Team Status: Active Member Role/Relationship Status Dates Galina Horner [employer], [employer]-C Primary Care Provider Active Start: October 13, 2024 Carmella Deluca [employer]-C Attending Provider Active Start: October 13, 2024 Carmella Deluca [employer]-C Referring Provider Active Start: October 13, 2024 Team Status: Inactive Member Role/Relationship Status Dates Galina Horner [employer], [employer]-C Primary Care Provider Active Start: October 22, 2024 End: October 22, 2024 Galina Horner [employer], [employer] Referring Provider Active Start: October 22, 2024 End: October 22, 2024 Carmella Deluca [employer] Attending Provider Active Start: October 22, 2024 End: October 22, 2024 Team Status: Inactive Member Role/Relationship Status Dates Galina Horner [employer], [employer] Primary Care Provider Active Start: October 22, [...] Status: Inactive Member Role/Relationship Status Dates Dr. Reji Reyna MD Primary Care Provider Active Start: August 12, 2024 End: August 12, 2024 Galina Horner [employer], [employer] Attending Provider Active Start: August 12, 2024 End: August 12, 2024 Team Status: Inactive Member Role/Relationship Status Dates Dr. Reji Reyna MD Primary Care Provider Active Start: August 13, 2024 End: August 13, 2024 Dr. Reji Reyna MD Referring Provider Active Start: August 13, 2024 End: August 13, 2024 Carmella Deluca NP-C Attending Provider Active Start: August 13, 2024 End: August 13, 2024 Team Status: Inactive Member Role/Relationship Status Dates Dr. Reji Reyna MD Primary Care Provider Active Start: August 13, 2024 End: August 13, 2024 Dr. Charles Ramos MD Attending Provider Active S tart: August 13, 2024 End: August 13, 2024 Team Status: Inactive Member Role/Relationship Status Dates Galina Horner [employer], [employer] Primary Care Provider Active Start: August 16, 2024 End: August 16, 2024 Galina Horner [employer], [employer] Attending Provider Active Start: August 16, 2024 End: August 16, 2024 Team Status: Inactive Member Role/Relationship Status Dates Dr. Reji Reyna MD Primary Care Provider Active Start: August 18, 2024 End: August 18, 2024 Dr. Reji Reyna MD Referring Provider Active Start: August 18, 2024 End: August 18, 2024 SAVANNAH WatersC Attending Provider Active Start: August 18, 2024 End: August 18, 2024 Team Status: Inactive Member Role/Relationship Status Dates Dr. Reji Reyna MD Primary Care Provider Active Start: August 18, 2024 End: August 18, 2024 Dr. Charles Ramos MD Attending Provider Active S tart: August 18, 2024 End: August 18, 2024 Team Status: Active Member Role/Relationship Status Dates Dr. Reji Reyna MD Primary Care Provider Active Start: August 30, 2024 Reji POPE MD Attending Provider Active Start: August 30, 2024 Team Status: Inactive Member Role/Relationship Status Dates Dr. Reji Reyna MD Primary Care Provider Active Start: September 03, 2024 End: September 03, 2024 Dr. Reji Reyna MD Referring Provider Active Start: September 03, 2024 End: September 03, 2024 Carmella Deluca NP-C Attending Provider Active Start: September 03, 2024 End: September 03, 2024 Team Status: Inactive Member Role/Relationship Status Dates Dr. Reji Reyna MD Primary Care Provider Active Start: September 03, 2024 End: September 03, 2024 Dr. Charles Ramos MD Attending Provider Active S tart: September 03, 2024 End: September 03, 2024 Team Status: Inactive Member Role/Relationship Status Dates Dr. Reji Reyna MD Primary Care Provider Active Start: September 07, 2024 End: September 07, 2024 Dr. Reji Reyna MD Referring Provider Active Start: September 07, 2024 End: September 07, 2024 Juliet Parham NP-C Attending Provider Active Start: September 07, 2024 End: September 07, 2024 Team Status: Inactive Member Role/Relationship Status Dates Galina Horner [employer], [employer] Primary Care Provider Active Start: September 14, 2024 Dr. Hiwot Abdullahi MD Attending Provider Active Start: September 14, 2024 Team Status: Inactive Member Role/Relationship Status Dates Dr. Sung Torres DO Attending Provider Active Start: September 14, 2024 End: September 14, 2024 Dr. Sung Torres DO Emergency Provider Active Start: September 14, 2024 End: September 14, 2024 Galina Horner [employer], [employer] Primary Care Provider Active Start: September 14, 2024 End: September 14, 2024 Team Status: Inactive Member Role/Relationship Status Dates Galina Horner [employer], [employer] Primary Care Provider Active Start: September 20, 2024 End: September 20, 2024 Galina Horner [employer], [employer] Attending Provider Active Start: September 20, 2024 End: September 20, 2024 Team Status: Inactive Member Role/Relationship Status Dates Galina Horner [employer], [employer] Primary Care Provider Active Start: September 22, 2024 End: September 22, 2024 Galina Horner [employer], [employer] Attending Provider Active Start: September 22, 2024 End: September 22, 2024 Team Status: Inactive Member Role/Relationship Status Dates Dr. Reji Reyna MD Referring Provider Active Start: September 24, 2024 End: September 24, 2024 Carmella Deluca [employer] Attending Provider Active Start: September 24, 2024 End: September 24, 2024 Galina Horner [employer], [employer] Primary Care Provider Active Start: September 24, 2024 End: September 24, 2024 Team Status: Inactive Member Role/Relationship Status Dates Galina Horner [employer], [employer] Primary Care Provider Active Start: September 24, 2024 End: September 24, 2024 Dr. Charles Ramos MD Attending Provider Active S tart: September 24, 2024 End: September 24, 2024 Team Status: Active Member Role/Relationship Status Dates Galina Horner [employer], [employer] Primary Care Provider Active Start: October 04, 2024 Reji POPE MD Attending Provider Active Start: October 04, 2024 Team Status: Active Member Role/Relationship Status Dates Galina Horner [employer], [employer] Primary Care Provider Active Start: October 13, 2024 Carmella Deluca [employer]-C Attending Provider Active Start: October 13, 2024 Carmella Deluca [employer]-C Referring Provider Active Start: October 13, 2024 Team Status: Inactive Member Role/Relationship Status Dates Galina Horner [employer], [employer] Primary Care Provider Active Start: October 22, 2024 End: October 22, 2024 Galina Horner [employer], [employer] Referring Provider Active Start: October 22, 2024 End: October 22, 2024 Carmella Deluca [employer] Attending Provider Active Start: October 22, 2024 End: October 22, 2024 Team Status: Inactive Member Role/Relationship Status Dates Galina Horner [employer], [employer] Primary Care Provider Active Start: October 22, 2024 End: October 22, 2024 Dr. Charles Ramos MD Attending Provider Active S tart: October 22, 2024 End: October 22, 2024 Team Status: Active Member Role/Relationship Status Dates Galina Horner [employer], [employer] Primary Care Provider Active Start: November 01, 2024 Reji POPE MD Attending Provider Active Start: November 01, 2024 Team Status: Inactive Member Role/Relationship Status Dates Galina Horner [employer], [employer] Primary Care Provider Active Start: November 02, 2024 End: November 02, 2024 Dr. Reji Reyna MD Attending Provider Active Start: November 02, 2024 End: November 02, 2024 Team Status: Active Member Role/Relationship Status Dates Galina Horner [employer], [employer] Primary Care Provider Active Start: November 03, 2024 Reji POPE MD Attending Provider Active Start: November 03, 2024 Team Status: Inactive Member Role/Relationship Status Dates Galina Horner [employer], [employer] Primary Care Provider Active Start: November 22, 2024 End: November 22, 2024 Galina Horner [employer], [employer]-C Referring Provider Active Start: November 22, 2024 End: November 22, 2024 SAVANNAH FrankC Attending Provider Active Start: November 22, 2024 End: November 22, 2024 Associate Professor Of Psychology Relationship Specialty Start Date End Date Reji Reyna MD [address] [place] [address] PCP - General Internal Medicine 02/24/23 Sal Bonilla DO [address] [place] [address] Hematology/Oncology 03/22/22 Team Status: Active Member Role/Relationship Status Dates Galina Horner [employer], [employer] Primary care physician Active Team Status: Inactive Member Role/Relationship Status Dates Dr. Reji Reyna MD Primary care physician Activ e Start: August 18, 2024 End: August 18, 2024 Dr. Reji Reyna MD Referring Provider Active Start: August 18, 2024 End: August 18, 2024 SAVANNAH WatersC Attending physician Active Start: August 18, 2024 End: August 18, 2024 Team Status: Inactive Member Role/Relationship Status Dates Dr. Reji Reyna MD Primary care physician Activ e Start: August 18, 2024 End: August 18, 2024 Dr. Charles Ramos MD Attending physician Active Start: August 18, 2024 End: August 18, 2024 Team Status: Active Member Role/Relationship Status Dates Dr. Reji Reyna MD Primary care physician Activ e Start: August 30, 2024 Reji POPE MD Attending physician Active Start: August 30, 2024 Team Status: Inactive Member Role/Relationship Status Dates Dr. Reji Reyna MD Primary care physician Activ e Start: September 03, 2024 End: September 03, 2024 Dr. Reji Reyna MD Referring Provider Active Start: September 03, 2024 End: September 03, 2024 Carmella Deluca NP-C Attending physician Active Start: September 03, 2024 End: September 03, 2024 Team Status: Inactive Member Role/Relationship Status Dates Dr. Reji Reyna MD Primary care physician Activ e Start: September 03, 2024 End: September 03, 2024 Dr. Charles Ramos MD Attending physician Active Start: September 03, 2024 End: September 03, 2024 Team Status: Inactive Member Role/Relationship Status Dates Dr. Reji Reyna MD Primary care physician Activ e Start: September 07, 2024 End: September 07, 2024 Dr. Reji Reyna MD Referring Provider Active Start: September 07, 2024 End: September 07, 2024 Juliet Parham NP-C Attending physician Active Start: September 07, 2024 End: September 07, 2024 Team Status: Inactive Member Role/Relationship Status Dates Galina Horner NP, [employer] Primary care physician Active Start: September 14, 2024 Dr. Hiwot Abdullahi MD Attending physician Active Start: September 14, 2024 Team Status: Inactive Member Role/Relationship Status Dates Dr. Sung Torres DO Attending physician Active Start: September 14, 2024 End: September 14, 2024 Dr. Sung Torres DO Emergency Department Physician A ctive Start: September 14, 2024 End: September 14, 2024 Galina Horner [employer], [employer] Primary care physician Active Start: September 14, 2024 End: September 14, 2024 Team Status: Inactive Member Role/Relationship Status Dates Galina Horner [employer], [employer] Primary care physician Active Start: September 20, 2024 End: September 20, 2024 Galina Horner [employer], [employer] Attending physician Active Start: September 20, 2024 End: September 20, 2024 Team Status: Inactive Member Role/Relationship Status Dates Galina Horner [employer], [employer]-C Primary care physician Active Start: September 22, 2024 End: September 22, 2024 Galina Horner [employer], [employer]-C Attending physician Active Start: September 22, 2024 End: September 22, 2024 Team Status: Inactive Member Role/Relationship Status Dates Dr. Reji Reyna MD Referring Provider Active Start: September 24, 2024 End: September 24, 2024 Carmella Deluca [employer]-C Attending physician Active Start: September 24, 2024 End: September 24, 2024 Galina Horner NP, [employer] Primary care physician Active Start: September 24, 2024 End: September 24, 2024 Team Status: Inactive Member Role/Relationship Status Dates Galina Horner [employer], [employer] Primary care physician Active Start: September 24, 2024 End: September 24, 2024 Dr. Charles Ramos MD Attending physician Active Start: September 24, 2024 End: September 24, 2024 Team Status: Active Member Role/Relationship Status Dates Galina Horner [employer], [employer] Primary care physician Active Start: October 04, 2024 Reji POPE MD Attending physician Active Start: October 04, 2024 Team Status: Inactive Member Role/Relationship Status Dates Galina Horner NP, [employer] Primary care physician Active Start: October 13, 2024 End: October 13, 2024 Carmella Deluca NP-C Attending physician Active Start: October 13, 2024 End: October 13, 2024 Carmella Deluca NP-C Referring Provider Active Start: October 13, 2024 End: October 13, 2024 Team Status: Inactive Member Role/Relationship Status Dates Galina Horner [employer], [employer] Primary care physician Active Start: October 22, 2024 End: October 22, 2024 Galina Horner [employer], [employer]-C Referring Provider Active Start: October 22, 2024 End: October 22, 2024 Carmella Deluca NP-C Attending physician Active Start: October 22, 2024 End: October 22, 2024 Team Status: Inactive Member Role/Relationship Status Dates Galina Horner [employer], [employer] Primary care physician Active Start: October 22, 2024 End: October 22, 2024 Dr. Charles Ramos MD Attending physician Active Start: October 22, 2024 End: October 22, 2024 Team Status: Active Member Role/Relationship Status Dates aGlina Horner [employer], [employer]-C Primary care physician Active Start: November 01, 2024 Reji POPE MD Attending physician Active Start: November 01, 2024 Team Status: Inactive Member Role/Relationship Status Dates Galina Horner [employer], [employer] Primary care physician Active Start: November 02, 2024 End: November 02, 2024 Dr. Reji Reyna MD Attending physician Active Start: November 02, 2024 End: November 02, 2024 Team Status: Active Member Role/Relationship Status Dates Galina Horner [employer], [employer] Primary care physician Active Start: November 03, 2024 Reji POPE MD Attending physician Active Start: November 03, 2024 Team Status: Inactive Member Role/Relationship Status Dates Galina Horner [employer], [employer]-C Primary care physician Active Start: November 22, 2024 End: November 22, 2024 Galina Horner [employer], [employer]-C Referring Provider Active Start: November 22, 2024 End: November 22, 2024 Juliet Parham NP-C Attending physician Active Start: November 22, 2024 End: November 22, 2024 Team Status: Active Member Role/Relationship Status Dates Galina Horner [employer], [employer] Primary care physician Active Start: November 29, 2024 Reji POPE MD Attending physician Active Start: November 29, 2024 Goals (unrecognized section and content) Goals [...] BE BASED ON THE PRIMARY CLINICAL RECORDS. [facility]. provides no warranty or guarantee of the accuracy or completeness of information in this document.
[2025-02-28 07:28] LABS: Differential Indicated SCAN CRITERIA MET; Hematocrit 23.0 % (37-47); Hemoglobin 8.1 g/dL (12.0-15.0); Immature Granulocytes Count 0.100 X10^3/uL (0.0-0.0); Mean Corp Hgb Conc 35.2 g/dL (32-36); Mean Corpuscular Volume 104.5 fL (81-99); Mean Platelet Vol. 10.4 fl (6.2-12.0); NRBC Flagged by Analyzer 0 % (0-5); POSITIVE DIFFERENTIAL YES; Platelet Count 121 K/mm3 (150-450); RBC Distribution Width CV 14.8 % (11.6-14.6); RBC Distribution Width SD 56.3 fl (35.1-43.9); Red Blood Count 2.20 M/mm3 (4.2-5.4); White Blood Count 13.2 K/mm3 (4.4-11.0)
[2025-02-28 07:58] LABS: AST(SGOT) 675 U/L (<=31); Alanine Aminotransfer ALT/SGPT 534 U/L (<=34); Albumin, Serum 3.0 g/dL (3.4-4.8); Alkaline Phosphatase 70 U/L (35-104); Anion Gap 12 (5-15); BUN 39 mg/dL (4-19); BUN/Creat Ratio 24.7 RATIO (10-20); Calcium,Total 8.8 mg/dL (7.6-11.0); Carbon Dioxide 20.5 mmol/L (21.0-32.0); Chloride 101 mmol/L (98-108); Cholesterol 145 mg/dL (<=200); Globulin 2.7 g/dL (2.2-4.2); Glucose 97 mg/dL (70-99); Low Density Lipoprotein Calc. 76 mg/dL; Potassium 4.3 mmol/L (3.3-5.1); Triglycerides 116 mg/dL; Very Low Density Lipoprotein 23 mg/dL (5-40); Vitamin D,25 Hydroxy 40.1 ng/mL (30-100); cholesterol:hdl ratio screen 3.02
== END ==
LOC: OLS.WHLTSB 04:00
PROVIDERS: PCP Nurse Practitioner Adult Health; Referring Provider Internal Medicine; Visit Provider Internal Medicine
DX: I49.9 Cardiac arrhythmia, unspecified (principal); E55.9 Vitamin D deficiency, unspecified; I25.10 Atherosclerotic heart disease of native coronary artery without angina pectoris; H10.45 Other chronic allergic conjunctivitis; M81.0 Age-related osteoporosis without current pathological fracture
CPT/HCPCS: 36415; 80053; 80061; 82306; 85025

== ENCOUNTER 2025-02-28 11:12 | Inpatient (IN) | payer MEDICARE, BC, SELFPAY ==
[2025-02-28] VITALS (9 sets, daily range): BP systolic 110–133; BP diastolic 48–72; PULSE 79–115; RESP 12–20; TEMP 36.6–37.5; O2SAT 92–98; BMI 32.8; BMI 31.2
--- NOTE | 2025-02-28 11:36 | EX.ED.DYSGE1 ---
HPI History of Present Illness Chief Complaint: Abd Pain Narrative Narrative: Chief complaint and HPI: 89-year-old female with past medical history of diverticulitis status post colon resection in 2010, depression, HTN presents for evaluation of abdominal pain. Patient states Friday she had physical therapy. She states shortly after she developed watery diarrhea. Patient states she has not had a bowel movement since. She denies any fever, chills, shortness of breath, nausea, vomiting, dysuria. She states she has been eating and drinking although she has had abdominal pain and is distended. Review of systems: See HPI Medications: As listed on the chart Allergies: As listed on the chart PFSH: Per chart Vital signs: As listed on the chart. Reviewed. Physical exam: Gen: A&O x3, NAD Head: Normocephalic, atraumatic Eyes: No sclera icterus, conjunctiva clear ENT: Moist mucous membranes CV: RRR, no murmurs, no peripheral edema Resp: Lungs CTA BL, no w/r/c GI: Abd soft, slightly distended, tender to palpation diffusely, no r/r/g Musc: Moves all extremities, no deformity Skin: Warm, dry Psych: Cooperative, appropriate mood and affect PFSH PFSH Medical History Loss of hearing Wears glasses Hx of squamous cell carcinoma Cancer Depression Open wound History of steroid therapy Thyroid disease Rheumatoid arthritis Bladder disease Cirrhosis Anemia Restless legs Back pain Migraine headache Injury of head and neck Syncope History of esophageal varices with bleeding History of IBS History of diverticulitis Gastric reflux Non-smoker BiPAP (biphasic positive airway pressure) dependence Leg cramps History of pain when walking History of edema History of echocardiogram History of stress test Cardiology follow-up encounter History of rheumatic fever History of atrial fibrillation Breast CA Home Medications ?Medication ?Instructions ?Recorded ?Last Taken ?Type diclofenac sodium 1 % topical gel 4 g topical 4X/DAY PRN Pain 03/26/18 Unknown History (Voltaren) Handicapped placcard See Rx Instructions .Route 04/22/22 Unknown Rx .COMPLEX #1 unit polyethylene glycol 3350 17 gram 17 g PO QDAY PRN constipation 08/13/24 Unknown History oral powder packet carboxymethylcellulose sodium 1 % 1 drp ophthalmic (eye) 4-6XD PRN 09/07/24 Unknown History eye drops (Artificial Tears dry eye(s) (carboxymethylcellulose)) cetirizine 10 mg tablet 10 mg PO QDAY 09/07/24 Unknown History copper gluconate 2 mg capsule 2 mg PO QDAY 09/07/24 Unknown History denosumab 60 mg/mL subcutaneous 60 mg subcut [id number] 09/07/24 Unknown History syringe (Prolia) escitalopram oxalate 10 mg tablet 10 mg PO QDAY 09/07/24 Unknown History ferrous gluconate 324 mg (37.5 mg 324 mg PO QDAY 09/07/24 Unknown History iron) tablet fluticasone propionate 50 2 spray intranasal QDAY 09/07/24 Unknown History mcg/actuation nasal spray,suspension (Flonase Allergy Relief) furosemide 20 mg tablet (Lasix) 20 mg PO Q OTHER DAY 09/07/24 Unknown History levothyroxine 25 mcg capsule 25 mcg PO QDAY 09/07/24 Unknown History methenamine hippurate 1 gram tablet 1 g PO BID 09/07/24 Unknown History metoprolol succinate 25 mg 25 mg PO QDAY 09/07/24 Unknown History tablet,extended release 24 hr omeprazole 40 mg capsule,delayed 40 mg PO QDAY 09/07/24 Unknown History release sennosides 8.6 mg-docusate sodium 1 tab-cap PO QHS 09/07/24 Unknown History 50 mg capsule (Senna Plus) ascorbate calcium (vitamin C) 500 500 mg PO QDAY 09/24/24 Unknown History mg tablet olanzapine 2.5 mg tablet 2.5 mg PO QODAY 09/24/24 Unknown History estradiol 0.01% (0.1 mg/gram) 1 appful vaginal Q3D 11/22/24 Unknown History vaginal cream gabapentin 100 mg capsule 200 mg PO QHS 01/11/25 Unknown History guaifenesin 100 mg/5 mL oral liquid 200 mg PO Q4H PRN congestion 01/11/25 Unknown History psyllium husk 0.4 gram capsule 0.4 g PO ONCE 01/11/25 Unknown History (Metamucil) acetaminophen 500 mg tablet 1,000 mg PO TID 02/28/25 Unknown History cholecalciferol (vitamin D3) 25 25 mcg PO DAILY 02/28/25 Unknown History mcg (1,000 unit) capsule (Vitamin D3) ketotifen fumarate 0.025 % (0.035 1 drp EACH EYE BID PRN allergy 02/28/25 Unknown History %) eye drops ([place]) symptoms modafinil 100 mg tablet 100 mg PO SUWEFR somnolence 02/28/25 Unknown History prednisone 5 mg tablet 5 mg PO DAILY PRN pain, severe 02/28/25 Unknown History prednisone 5 mg tablet 15 mg PO DAILY 02/28/25 Unknown History tramadol 50 mg tablet 50 mg PO Q6H PRN pain 02/28/25 Unknown History Allergy/AdvReac Type Severity Reaction Status Date / Time DESMOND Inhibitors Allergy Unknown Verified 02/28/25 11:14 adhesive Allergy Unknown Verified 02/28/25 11:14 cyclobenzaprine HCl (From Allergy Unknown Verified 02/28/25 11:14 Flexeril) diclofenac sodium (From Allergy Unknown Verified 02/28/25 11:14 Arthrotec) hydrochlorothiazide Allergy Unknown Verified 02/28/25 11:14 lisinopril (From Zestril) Allergy Unknown Verified 02/28/25 11:14 metronidazole (From Flagyl) Allergy Unknown Verified 02/28/25 11:14 misoprostol (From Arthrotec) Allergy Unknown Verified 02/28/25 11:14 naproxen Allergy Unknown Verified 02/28/25 11:14 paroxetine HCl (From Paxil) Allergy Unknown Verified 02/28/25 11:14 prednisolone acetate (From Allergy Unknown Verified 02/28/25 11:14 Blephamide) sulfacetamide sodium (From Allergy Unknown Verified 02/28/25 11:14 Blephamide) Surgical History History of esophagogastroduodenoscopy (EGD) Hx of colonoscopy Hx of resection of small bowel Hx of oophorectomy Hx of tonsillectomy Hx of mastectomy H/O mastectomy Social History Smoking Status: Never smoker EXAM Physical Exam Const Vital Signs: 02/28/25 11:14 02/28/25 12:17 02/28/25 13:00 Temperature 99.3 F H 99.5 F H 99.5 F H Temperature Source Oral Oral Oral Pulse Rate 85 115 H 85 Respiratory Rate 16 20 H 15 Blood Pressure 133/59 H 121/54 H 110/49 L Blood Pressure Mean 83 76 69 Pulse Ox 97 92 97 Oxygen Delivery Method Room Air Room Air Room Air MDM MDM MDM Narrative Medical decision making narrative: 89-year-old female with past medical history of diverticulitis status post colon resection in 2009, depression, HTN presents for evaluation of abdominal pain. Patient states she originally had diarrhea on Friday but has not had a bowel movement since. Differential diagnosis includes but is not limited to bowel obstruction, diverticulitis, gastroenteritis, UTI, pancreatitis, gallbladder disease. NS bolus, morphine, Zofran ordered for symptoms. Laboratory workup ordered including CT abdomen and pelvis. CBC with leukocytosis of 13.1. She has worsening chronic anemia with a hemoglobin of 8.4 denies any bloody bowel movements. Chronic thrombocytopenia. CMP shows SUE with worsening transaminitis AST of 631 and ALT of 567. Patient has known cirrhosis. She has hyperbilirubinemia of 1.46. Lactic acid elevated at 2.9. Patient receiving fluids. Lipase unremarkable. UA negative for UTI. CT abdomen pelvis shows similar punctate Cecilia Virgen cholelithiasis versus pancreatic parenchymal calculus immediately adjacent to the CBD. No biliary dilation. Similar appearance of the gallbladder including cholelithiasis. Cirrhosis. Distal gastric wall thickening. Cirrhosis with a suspected 4.7 cm in determinate hepatic lesion. Portal hypertension including splenomegaly. New small volume ascites. Given these findings, I did reach out to GI, Dr. Matson. Recommend adding coagulation panel and MRCP. Agrees with antibiotics to treat for possible SBP versus other infection. Zosyn ordered. Patient family updated of all results and the plan. They confirmed understanding. Spoke with the hospice service who accepted admission. Coagulation panel relatively unremarkable. Impression: 1. Leukocytosis of unknown origin 2. Transaminitis 3. Hyperbilirubinemia 4. Choledocholithiasis versus pancreatic parenchymal calculus 5. Chronic cirrhosis Lab Data Labs: Laboratory Results - last 24 hr 02/28/25 02/28/25 11:30 12:54 WBC 13.1 H RBC 2.36 L Hgb 8.4 L Hct 24.6 L MCV 104.2 H MCH 35.6 H MCHC 34.1 RDW Std Deviation 56.2 H RDW Coeff of Laureen 14.8 H Plt Count 113 L MPV 9.8 Immature Gran % (Auto) 1.400 H Neut % (Auto) 75.9 H Lymph % (Auto) 5.2 L Dent % (Auto) 16.9 H Eos % (Auto) 0.3 Baso % (Auto) 0.3 Absolute Neuts (auto) 9.9 H Absolute Lymphs (auto) 0.68 L Nucleated RBC % 0 Differential Comment COMMENT Sodium 133 Potassium 4.2 Chloride 99 Carbon Dioxide 21.2 Anion Gap 12 BUN 40 H Creatinine 1.43 H Estim Creat Clear Calc 29.01 L Est GFR (MDRD) Non-Af 35 L BUN/Creatinine Ratio 28.0 H Glucose 105 H Lactic Acid 2.9 H* Calcium 9.0 Total Bilirubin 1.46 H AST 631 H ALT 567 H Alkaline Phosphatase 75 Total Protein 6.0 Albumin 3.2 L Globulin 2.8 Albumin/Globulin Ratio 1.1 Lipase 36 Urine Color Yellow Urine Clarity Clear Urine pH 5.0 Ur Specific [place] 1.015 Urine Protein 30 H Urine Glucose (UA) Normal Urine Ketones Negative Urine Occult Blood 25 H Urine Nitrite Negative Urine Bilirubin Negative Urine Urobilinogen Normal Ur Leukocyte Esterase 25 H Urine RBC 0-5 SEEN Urine WBC 0-5 SEEN Ur Squamous Epith Cells 0 SEEN Urine Bacteria RARE Urine Mucus 0 SEEN Radiography Diagnostic Testing: Clinical Impression(s) from Imaging Studies Abdomen/Pelvis CT 02/28/25 12:15 IMPRESSION: 1. Similar punctate choledocholithiasis versus pancreatic parenchymal calculus immediately adjacent to the CBD. No biliary dilatation. 2. Similar appearance of the gallbladder including cholelithiasis and minimal gallbladder wall thickening, nonspecific in the setting of cirrhosis. Acute cholecystitis is unlikely given that the gallbladder is nondistended. 3. Distal gastric wall thickening may be related to portal hypertension or could indicate gastritis of other perhaps infectious/inflammatory etiology. 4. Cirrhosis with ill defined suspected 4.7 cm indeterminate hepatic lesion. Recommend outpatient multiphase hepatic protocol MRI with and without contrast or less optimally CT if there is a contraindication. 5. Sequela of portal hypertension including splenomegaly and new small volume ascites. 6. Additional description as above. Reading Location: [facility] Discharge Plan Triage Chief Complaint: Abd Pain ED Provider: Ricky Valles Dx/Rx/DC Orders Primary Care Provider: Galina Horner NP
[2025-02-28 11:40] LABS: Hematocrit 24.6 % (37-47); Hemoglobin 8.4 g/dL (12.0-15.0); Immature Granulocytes Count 0.180 X10^3/uL (0.0-0.0); Mean Corp Hgb Conc 34.1 g/dL (32-36); Mean Corpuscular Volume 104.2 fL (81-99); Mean Platelet Vol. 9.8 fl (6.2-12.0); NRBC Flagged by Analyzer 0 % (0-5); POSITIVE DIFFERENTIAL YES; Platelet Count 113 K/mm3 (150-450); RBC Distribution Width CV 14.8 % (11.6-14.6); RBC Distribution Width SD 56.2 fl (35.1-43.9); Red Blood Count 2.36 M/mm3 (4.2-5.4); White Blood Count 13.1 K/mm3 (4.4-11.0)
[2025-02-28 11:41] LABS: Differential Indicated SCAN CRITERIA MET
[2025-02-28] MEDS: 0.9% Normal Saline (1000mL) 1,000 ML 999 ML IV (12:03)
[2025-02-28 12:06] LABS: AST(SGOT) 631 U/L (<=31); Alanine Aminotransfer ALT/SGPT 567 U/L (<=34); Albumin, Serum 3.2 g/dL (3.4-4.8); Alkaline Phosphatase 75 U/L (35-104); Anion Gap 12 (5-15); BUN 40 mg/dL (4-19); BUN/Creat Ratio 28.0 RATIO (10-20); Calcium,Total 9.0 mg/dL (7.6-11.0); Carbon Dioxide 21.2 mmol/L (21.0-32.0); Chloride 99 mmol/L (98-108); Estimated Creatinine Clearance 29.01 ml/min (50-250); Globulin 2.8 g/dL (2.2-4.2); Glucose 105 mg/dL (70-99); Lipase 36 U/L (13-75); Potassium 4.2 mmol/L (3.3-5.1)
--- NOTE | 2025-02-28 12:15 | CT_ITS ---
PROCEDURE: ABDOMEN/PELVIS W IV CONT ONLY 02/28/2025 REASON FOR EXAM: ABDOMINAL PAIN TECHNIQUE: Procedure Code: [id number] Modality: CT Procedure: ABDOMEN/PELVIS W IV CONT ONLY Coronal and Sagittal reconstruction series were generated. CONTRAST: Isovue-300 VOLUME: 97 mL One or more dose reduction techniques were used (e.g., Automated exposure control, adjustment of the mA and/or kV according to patient size, use of iterative reconstruction technique. RADIATION DOSE SUMMARY: CTDlvol: 9.97+ 19.96 mGy DLP: 1154.44 mGycm COMPARISON: 07/2024 FINDINGS: Lung bases: Atelectasis/scarring. Coronary atherosclerosis and/or stents. Suspect trace aortic annular calcification. Liver: Cirrhosis. Suspect an ill defined 4.7 x 4.1 cm subcapsular indeterminate lesion in the inferior RIGHT lobe near the gallbladder fossa not clearly seen previously. Numerous additional scattered hypodensities too small to characterize. Spleen: 15.1 cm coronal. Gallbladder: Similar appearance including cholelithiasis and minimal nonspecific wall thickening.. Similar 3 mm calculus within the lower CBD versus immediately adjacent parenchymal calculus within the pancreas. No biliary dilatation. Pancreas: As above. Somewhat atrophic through the tail.. Adrenals: Unremarkable. Kidneys: Unremarkable. Bowel: Mild wall thickening of the antro pyloric stomach.. Partial colonic resection with rectal anastomosis. Diverticulosis. Few fluid distended but nondilated small bowel loops. Appendix not identified. Lymph nodes: Unremarkable. Vasculature: Atherosclerosis. Patent portal vein. Tiny collaterals.. Peritoneum: New small volume lung mostly upper abdominal ascites. Bladder: Underdistended and suboptimally evaluated, grossly unremarkable. Reproductive Organs: Grossly unremarkable. Body Wall: Operative changes. Tiny multifocal fat containing presumably incisional hernias.. Bones: Suspect demineralization. Degenerative findings.. CT/Abdomen/Pelvis W IV Cont ONLY IMPRESSION: 1. Similar punctate choledocholithiasis versus pancreatic parenchymal calculus immediately adjacent to the CBD. No biliary dilatation. 2. Similar appearance of the gallbladder including cholelithiasis and minimal g allbladder wall thickening, nonspecific in the setting of cirrhosis. Acute cholecystitis is unlikely given that the gallbladd er is nondistended. 3. Distal gastric wall thickening may be related to portal hypertension or coul d indicate gastritis of other perhaps infectious/inflammatory etiology. 4. Cirrhosis with ill defined suspected 4.7 cm indeterminate hepatic lesion. R ecommend outpatient multiphase hepatic protocol MRI with and without contrast or less optimally CT if there is a contraindicati on. 5. Sequela of portal hypertension including splenomegaly and new small volume a scites. 6. Additional description as above. Reading Location: [id number]
[2025-02-28 12:59] LABS: Mucous, Urine 0 SEEN /hpf (<or=2+); Squamous Epithelial Cells - UA 0 SEEN /hpf (5-10)
[2025-02-28 13:10] LABS: Color, Urine Yellow (Yellow); Glucose, Dipstick Normal (Normal); Ketone-Dipstick Negative (Negative); Leukocyte Esterase-Dipstick 25 /ul (Negative); Nitrite-Dipstick Negative (Negative); Occult Blood-Urine 25 /ul (Negative); Protein-Dipstick 30 mg/dl (Negative); Specific Gravity, Urine 1.015 (1.002-1.030); Urine Bilirubin Dipstick Negative (Negative)
[2025-02-28 13:22] LABS: Red Blood Cells-Urine 0-5 SEEN /hpf (0-5)
--- NOTE | 2025-02-28 15:04 | PCM.HP.STD ---
HPI - General General Date of Admission: 02/28/25 Date of Service: 02/28/25 Chief Complaint: Abdominal pain HPI Narrative CHRISTIAN CARDENAS, is a 89 F who presented to [facility] ED on 02/28/2025 with abdominal pain. Patient has lived in a nursing over the past 3 years for chronic debility and has mild cognitive impairment. 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 She notes that on Friday she did PT and had watery diarrhea after this, but since then she has not had a bowel movement and has had worsening abdominal pain. In the ED she had borderline sinus tachycardia and a low-grade fever, was otherwise normotensive and stable on room air at rest. CT abdomen pelvis showed cirrhosis with a new ill-defined 4.7 cm indeterminate hepatic lesion, new small volume ascites, distal gastric wall thickening, no other concerning findings. Labs notable for hemoglobin 8.4 (baseline around 11), WBC count 13 with neutrophil predominance, INR 1.4, creatinine 1.43 (baseline around 0.6), lactic acid 2.9, T. bili 1.46, AST 631, ALT 567. ED physician discussed case with Dr. Matson who recommended MRI abdomen with and without contrast for further evaluation and admission to medicine. Hospitalist was then contacted for admission. I saw the patient at bedside in the ED, daughter was present. Patient was laying back comfortably in bed and in no acute distress. She reported only mild abdominal pain currently at rest, and this pain was worse with palpation. She noted the pain was diffuse all over her abdomen. She denied any nausea. No other acute concerns currently. Will be admitted for further management. [facility] Medical History (Updated 02/28/25 @ 17:[address] Hermann Matson, DO) Loss of hearing Wears glasses Hx of squamous cell carcinoma Cancer Depression Open wound History of steroid therapy Thyroid disease Rheumatoid arthritis Bladder disease Cirrhosis Anemia Restless legs Back pain Migraine headache Injury of head and neck Syncope History of esophageal varices with bleeding History of IBS History of diverticulitis Gastric reflux Non-smoker BiPAP (biphasic positive airway pressure) dependence Leg cramps History of pain when walking History of edema History of echocardiogram History of stress test Cardiology follow-up encounter History of rheumatic fever History of atrial fibrillation Breast CA Home Medications ?Medication ?Instructions ?Recorded ?Last Taken ?Type diclofenac sodium 1 % topical gel 4 g topical 4X/DAY PRN Pain 03/26/18 Unknown History (Voltaren) Handicapped placcard See Rx Instructions .Route 04/22/22 Unknown Rx .COMPLEX #1 unit polyethylene glycol 3350 17 gram 17 g PO QDAY PRN constipation 08/13/24 Unknown History oral powder packet carboxymethylcellulose sodium 1 % 1 drp ophthalmic (eye) 4-6XD PRN 09/07/24 Unknown History eye drops (Artificial Tears dry eye(s) (carboxymethylcellulose)) cetirizine 10 mg tablet 10 mg PO QDAY 09/07/24 Unknown History copper gluconate 2 mg capsule 2 mg PO QDAY 09/07/24 Unknown History denosumab 60 mg/mL subcutaneous 60 mg subcut [id number] 09/07/24 Unknown History syringe (Prolia) escitalopram oxalate 10 mg tablet 10 mg PO QDAY 09/07/24 Unknown History ferrous gluconate 324 mg (37.5 mg 324 mg PO QDAY 09/07/24 Unknown History iron) tablet fluticasone propionate 50 2 spray intranasal QDAY 09/07/24 Unknown History mcg/actuation nasal spray,suspension (Flonase Allergy Relief) furosemide 20 mg tablet (Lasix) 20 mg PO Q OTHER DAY 09/07/24 Unknown History levothyroxine 25 mcg capsule 25 mcg PO QDAY 09/07/24 Unknown History methenamine hippurate 1 gram tablet 1 g PO BID 09/07/24 Unknown History metoprolol succinate 25 mg 25 mg PO QDAY 09/07/24 Unknown History tablet,extended release 24 hr omeprazole 40 mg capsule,delayed 40 mg PO QDAY 09/07/24 Unknown History release ascorbate calcium (vitamin C) 500 500 mg PO QDAY 09/24/24 Unknown History mg tablet estradiol 0.01% (0.1 mg/gram) 1 appful vaginal Q3D 11/22/24 Unknown History vaginal cream gabapentin 100 mg capsule 200 mg PO QHS 01/11/25 Unknown History guaifenesin 100 mg/5 mL oral liquid 200 mg PO Q4H PRN congestion 01/11/25 Unknown History psyllium husk 0.4 gram capsule 0.4 g PO DAILY bowels 01/11/25 Unknown History (Metamucil) acetaminophen 500 mg tablet 1,000 mg PO TID 02/28/25 Unknown History artificial 1 drp ophthalmic (eye) Q4H PRN dry 02/28/25 Unknown History tears(dlvhkpe-xmjjonme-zknxyqw) eye 0.1 %-0.3 %-0.2 % eye drops (GenTeal Tears Moderate) cholecalciferol (vitamin D3) 25 25 mcg PO DAILY 02/28/25 Unknown History mcg (1,000 unit) capsule (Vitamin D3) ketotifen fumarate 0.025 % (0.035 1 drp EACH EYE BID PRN allergy 02/28/25 Unknown History %) eye drops ([place]) symptoms modafinil 100 mg tablet 100 mg PO SUWEFR somnolence 02/28/25 Unknown History prednisone 5 mg tablet 5 mg PO DAILY PRN pain, severe 02/28/25 Unknown History prednisone 5 mg tablet 15 mg PO DAILY 02/28/25 Unknown History tramadol 50 mg tablet 50 mg PO Q6H PRN pain 02/28/25 Unknown History Allergy/AdvReac Type Severity Reaction Status Date / Time DESMOND Inhibitors Allergy Unknown Verified 02/28/25 11:14 adhesive Allergy Unknown Verified 02/28/25 11:14 cyclobenzaprine HCl (From Allergy Unknown Verified 02/28/25 11:14 Flexeril) diclofenac sodium (From Allergy Unknown Verified 02/28/25 11:14 Arthrotec) hydrochlorothiazide Allergy Unknown Verified 02/28/25 11:14 lisinopril (From Zestril) Allergy Unknown Verified 02/28/25 11:14 metronidazole (From Flagyl) Allergy Unknown Verified 02/28/25 11:14 misoprostol (From Arthrotec) Allergy Unknown Verified 02/28/25 11:14 naproxen Allergy Unknown Verified 02/28/25 11:14 paroxetine HCl (From Paxil) Allergy Unknown Verified 02/28/25 11:14 prednisolone acetate (From Allergy Unknown Verified 02/28/25 11:14 Blephamide) sulfacetamide sodium (From Allergy Unknown Verified 02/28/25 11:14 Blephamide) Surgical History History of esophagogastroduodenoscopy (EGD) Hx of colonoscopy Hx of resection of small bowel Hx of oophorectomy Hx of tonsillectomy Hx of mastectomy H/O mastectomy Social History Smoking Status: Never smoker ROS Constitutional Constitutional: Reports fatigue; Denies chills, fever(s) or weakness Cardiovascular Cardiovascular: Denies chest pain Respiratory/Chest Respiratory/Chest: Denies shortness of breath at rest Gastrointestinal Gastrointestinal: Reports abdominal pain; Denies nausea or vomiting Genitourinary Genitourinary: Denies dysuria Musculoskeletal Musculoskeletal: Denies arthralgias or myalgias Vital Signs Vital Signs Vital Signs: 02/28/25 11:14 02/28/25 12:17 02/28/25 13:00 Temperature 99.3 F H 99.5 F H 99.5 F H Temperature Source Oral Oral Oral Pulse Rate 85 115 H 85 Respiratory Rate 16 20 H 15 Blood Pressure 133/59 H 121/54 H 110/49 L Blood Pressure Mean 83 76 69 Pulse Ox 97 92 97 Oxygen Delivery Method Room Air Room Air Room Air Weight Weight: 86.9 kg Body Mass Index (BMI) 32.8 Physical Exam Const alert and no apparent distress Constitutional Narrative: Elderly female, fatigued appearing, alert and answering questions with appropriate responses, otherwise laying back fairly comfortably in bed and in no acute distress. General Appearance: cooperative and comfortable HEENT normocephalic, head/scalp atraumatic, hearing grossly normal bilaterally, nasal mucous membranes and turbinates normal and moist oral mucous membranes Eyes PERRL, EOMs intact bilaterally and conjunctivae normal Neck full ROM Chest inspection of chest normal Resp normal respiratory effort, normal air movement, no use of accessory muscles and clear to auscultation bilaterally Cardio regular rate, regular rhythm, no murmurs and peripheral pulses 2+ throughout GI GI Narrative: Abdomen mildly tender diffusely to palpation and mildly distended, otherwise soft on palpation. Back/Spine normal ROM Extremity normal to inspection, full ROM and no pedal edema Skin no rashes or lesions noted Neuro moves all extremities and no focal motor deficits Speech: speech normal Psych mental status grossly normal Results Lab / Micro Data 02/28/25 11:30 02/28/25 11:30 Labs: Laboratory Results - last 24 hr 02/28/25 11:30: WBC 13.1 H, RBC 2.36 L, Hgb 8.4 L, Hct 24.6 L, MCV 104.2 H, MCH 35.6 H, MCHC 34.1, RDW Std Deviation 56.2 H, RDW Coeff of Laureen 14.8 H, Plt Count 113 L, MPV 9.8, Immature Gran % (Auto) 1.400 H, Neut % (Auto) 75.9 H, Lymph % (Auto) 5.2 L, Grainger % (Auto) 16.9 H, Eos % (Auto) 0.3, Baso % (Auto) 0.3, Absolute Neuts (auto) 9.9 H, Absolute Lymphs (auto) 0.68 L, Nucleated RBC % 0, Differential Comment COMMENT, Sodium 133, Potassium 4.2, Chloride 99, Carbon Dioxide 21.2, Anion Gap 12, BUN 40 H, Creatinine 1.43 H, Estim Creat Clear Calc 29.01 L, Est GFR (MDRD) Non-Af 35 L, BUN/Creatinine Ratio 28.0 H, Glucose 105 H, Lactic Acid 2.9 H*, Calcium 9.0, Total Bilirubin 1.46 H, AST 631 H, ALT 567 H, Alkaline Phosphatase 75, Total Protein 6.0, Albumin 3.2 L, Globulin 2.8, Albumin/Globulin Ratio 1.1, Lipase 36 02/28/25 12:54: Urine Color Yellow, Urine Clarity Clear, Urine pH 5.0, Ur Specific [place] 1.015, Urine Protein 30 H, Urine Glucose (UA) Normal, Urine Ketones Negative, Urine Occult Blood 25 H, Urine Nitrite Negative, Urine Bilirubin Negative, Urine Urobilinogen Normal, Ur Leukocyte Esterase 25 H, Urine RBC 0-5 SEEN, Urine WBC 0-5 SEEN, Ur Squamous Epith Cells 0 SEEN, Urine Bacteria RARE, Urine Mucus 0 SEEN Imaging Radiology Impression Abdomen/Pelvis CT 02/28/25 12:15 IMPRESSION: 1. Similar punctate choledocholithiasis versus pancreatic parenchymal calculus immediately adjacent to the CBD. No biliary dilatation. 2. Similar appearance of the gallbladder including cholelithiasis and minimal gallbladder wall thickening, nonspecific in the setting of cirrhosis. Acute cholecystitis is unlikely given that the gallbladder is nondistended. 3. Distal gastric wall thickening may be related to portal hypertension or could indicate gastritis of other perhaps infectious/inflammatory etiology. 4. Cirrhosis with ill defined suspected 4.7 cm indeterminate hepatic lesion. Recommend outpatient multiphase hepatic protocol MRI with and without contrast or less optimally CT if there is a contraindication. 5. Sequela of portal hypertension including splenomegaly and new small volume ascites. 6. Additional description as above. Reading Location: [id number] Assessment & Plan Assessment/Plan (1) Cirrhosis: (2) Liver lesion: (3) Ascites: PLAN: Plan Patient is an 89-year-old female who presented to [facility] ED on 02/28/2025 with abdominal pain. 1. Abdominal pain in setting of cirrhosis with new hepatic lesion and new onset ascites ? Admit under inpatient status to PCU. GI consulted. Known history of cirrhosis secondary to methotrexate use for RA. CT abdomen pelvis on admit showed a new ill-defined 4.7 cm indeterminate hepatic lesion, new small volume ascites compared to CT scan from July. Per GI, highest suspicion is for hepatocellular carcinoma but will need further workup to determine this. MRI abdomen with and without contrast ordered. Given leukocytosis with WBC count 13 and low-grade fevers, also have suspicion for SBP so per GI will cover with IV antibiotics. Importantly, discussed with patient's daughter on admit and they wish to be less aggressive with medical management and focus more on comfort for the patient as much as possible. They have decided patient will have no more lower scopes done and they would prefer to hold off on upper scopes if possible. Appreciate further GI recommendations. 2. Acute on chronic anemia ? Hemoglobin 8.4 on admit, recent baseline appears to be around 11. Patient has had decreased hemoglobin values in the past and is on a daily iron supplement for this. CT abdomen pelvis on admit did show concern for gastritis, and given patient cirrhosis it is likely that she has esophageal varices as well. Patient has had no dark or bloody bowel movements noted. Will treat with IV PPI twice daily for now. Follow-up hemoglobin later tonight and tomorrow morning and transfuse for hemoglobin less than 7. 3. SUE ? Creatinine 1.43 on admit, baseline around 0.6. Suspect prerenal SUE in setting of anemia and recent poor p.o. intake, but may also have a component of hepatorenal etiology. Given 1 L of IV fluids in the ED, follow-up a.m. BMP and monitor urine output. Will defer to GI on possibly starting daily Lasix or spironolactone for cirrhosis with ascites as above. 4. Elevated lactic acid ? Lactic acid 2.9 on admit. Presume secondary to anemia and some degree of dehydration as above. Given IV fluids on admit as above, follow-up repeat lactic acid level. 5. Chronic debility ? Case management consulted. Patient has lived in a intermediate for the past 3 years. Will likely be okay to return there at discharge. Chronic medical conditions: ? RA: Stable. Continue home low-dose prednisone and gabapentin. ? Hypertension: Holding home Toprol and Lasix for now. ? Anxiety/depression: Continue home escitalopram. ? Hypothyroidism: Continue home hypothyroidism. ? Incontinence: Follows with urology. Continue home medications. DVT prophylaxis: SCDs CODE STATUS: DNR CCA, DNI Expected disposition: Likely back to intermediate, TBD Total clinical time spent by myself addressing the patient's medical issues, reviewing all the data, and collaborating with patient's care team: 81 minutes. Charges/Coding Visit Charges Inpatient E&M: 78361 Init Hosp L3
--- NOTE | 2025-02-28 15:16 | MRI_ITS ---
PROCEDURE: MRI ABD WITH AND W/O CONTRAST 03/01/2025 REASON FOR EXAM: CIRRHOSIS W/ LIVER LESION TECHNIQUE: Procedure Code: [id number] Modality: MR Procedure: MRI ABD WITH AND W/O CONTRAST Multiplanar and multisequence images were obtained. CONTRAST: Clariscan VOLUME: 17 mL COMPARISON: 28-Feb-2025 CT FINDINGS: Cirrhotic liver changes evident by undulant hepatic outline, prominent interlobar fissure and hypertrophied caudate and left hepatic lobes. It shows segment 6 large partially exophytic mass 4.5 x 4.4 cm in diameter displaying high T2 and low T1 signal with diffusion restriction, early enhancement and delayed contrast washout. Innumerable hepatic bi-lobar tiny hypo-enhancing nodules displaying isointense T1 and T2 signal. No dilated biliary tracts. Dilated portosystemic collaterals are seen along the splenic hilum and gastric bed. The tiny calcific density along the pancreatic head/CBD cannot be identified on the current MRI study. Gall bladder with mural edema/thickening and intraluminal low signal calculi and sludge. Clear surrounding fat planes. The portal vein is homogenously opacified. Bulky spleen with no masses. Unremarkable pancreas and adrenals. The aorta and IVC are unremarkable. Both kidneys are normal in size and position. No hydronephrosis or focal enhancing masses could be seen in both kidneys. Small and large bowel loops appears largely collapsed however, is grossly unremarkable. No obvious colonic masses or pathological enhancement. Stomach shows no significant abnormality. Mild ascites. Minimal bilateral pleural effusion. Thoracolumbar spondylosis. No significant lymph node enlargement is seen in the abdomen. No marrow infiltrative lesions. MRI/MRI Abd WITH and W/O Contrast IMPRESSION: Liver cirrhosis with segment 6 mass displaying MRI signal as detailed suggestiv e of HCC. Advise AFP correlation. Hepatic bi-lobar regeneration nodules. Mild ascites and portal hypertension. Gall bladder calculi. Reading Location: [facility]
[2025-02-28 15:37] LABS: Reflex Lactate? Y
[2025-02-28 15:54] LABS: Prothrombin Time (Protime)PT. 17.7 SECONDS (11.7-14.9)
[2025-02-28 15:55] LABS: Partial Thromboplast Time 33.0 Seconds (24.1-36.2)
[2025-02-28] MEDS: Piperacil/Tazobactam 3.375 GM in 0.9% Normal Saline (50mL MB+) 50 ML IV ×2 (16:05→22:39)
--- NOTE | 2025-02-28 17:56 | CON.PCM.GI_ITS ---
HPI Consult Data Date of Consult: 02/28/25 HPI Narrative HPI Narrative: CHRISTIAN CARDENAS, is a 89-year-old female with a complex medical history, residing in a care home, who presented to the ED with abdominal pain. Her history includes rheumatoid arthritis (on chronic prednisone), cirrhosis, diverticulitis, atrial fibrillation, coronary artery disease, history of?C. difficile?infection, and recurrent urinary tract infections.? She has experienced fecal smearing and difficulty with perineal hygiene for three months, possibly contributing to her UTIs. She is on preventative Hiprex and vitamin C. She is currently taking senna stool softener daily. Metamucil was previously recommended. A CT in July 2024 showed a 3mm CBD stone, cirrhotic liver, gastric wall thickening, and mild sigmoid thickening. Following an increase in prednisone to 40mg daily for seven days post-CT, she reported temporary improvement in bowel habits. Fecal calprotectin was elevated at 317. The patient and daughter decline any further endoscopic procedures. * Labs: * WBC: 13.1 * Hemoglobin: 8.4, MCV 104.2, PLT 113 * BUN: 40 * Creatinine: 1.4 * Bilirubin (total/direct not specified): 1.46 * AST: 631 * ALT: 567 * Alkaline Phosphatase: 75 * Imaging: * CT Abdomen/Pelvis (today):?Distal gastric wall thickening related to portal hypertension versus gastritis; cirrhotic liver with a new 4.7 cm hepatic lesion; possible choledocholithiasis versus pancreatic calculus adjacent to the CBD. [facility] Medical History (Updated 02/28/25 @ 17:[address] Mccrary Friend, DO) Loss of hearing Wears glasses Hx of squamous cell carcinoma Cancer Depression Open wound History of steroid therapy Thyroid disease Rheumatoid arthritis Bladder disease Cirrhosis Anemia Restless legs Back pain Migraine headache Injury of head and neck Syncope History of esophageal varices with bleeding History of IBS History of diverticulitis Gastric reflux Non-smoker BiPAP (biphasic positive airway pressure) dependence Leg cramps History of pain when walking History of edema History of echocardiogram History of stress test Cardiology follow-up encounter History of rheumatic fever History of atrial fibrillation Breast CA Home Medications ?Medication ?Instructions ?Recorded ?Last Taken ?Type diclofenac sodium 1 % topical gel 4 g topical 4X/DAY P RN Pain 03/26/18 Unknown History (Voltaren) Handicapped placcard See Rx Instructions .Route 0 04/22/22 Unknown Rx .COMPLEX #1 unit polyethylene glycol 3350 17 gram 17 g PO QDAY PRN cons tipation 08/13/24 Unknown History oral powder packet carboxymethylcellulose sodium 1 % 1 drp ophthalmic (ey e) 4-6XD PRN 09/07/24 Unknown History eye drops (Artificial Tears dry eye(s) (carboxymethylcellulose)) cetirizine 10 mg tablet 10 mg PO QDAY 09/07/24 Unkno wn History copper gluconate 2 mg capsule 2 mg PO QDAY 09/07/24 Un known History denosumab 60 mg/mL subcutaneous 60 mg subcut [id number] 09/07/24 Unknown History syringe (Prolia) escitalopram oxalate 10 mg tablet 10 mg PO QDAY Unknown History ferrous gluconate 324 mg (37.5 mg 324 mg PO QDAY 09/07 Unknown History iron) tablet fluticasone propionate 50 2 spray intranasal QDAY 08/16 07/09 Unknown History mcg/actuation nasal spray,suspension (Flonase Allergy Relief) furosemide 20 mg tablet (Lasix) 20 mg PO Q OTHER DAY 0 09/07/24 Unknown History levothyroxine 25 mcg capsule 25 mcg PO QDAY 09/07/24 U nknown History methenamine hippurate 1 gram tablet 1 g PO BID 5 Unknown History metoprolol succinate 25 mg 25 mg PO QDAY 09/07/24 Unkn own History tablet,extended release 24 hr omeprazole 40 mg capsule,delayed 40 mg PO QDAY 5 Unknown History release ascorbate calcium (vitamin C) 500 500 mg PO QDAY 09/24 Unknown History mg tablet estradiol 0.01% (0.1 mg/gram) 1 appful vaginal Q3D 11/08 Unknown History vaginal cream gabapentin 100 mg capsule 200 mg PO QHS 01/11/25 Unkno wn History guaifenesin 100 mg/5 mL oral liquid 200 mg PO Q4H PRN congestion 01/11/25 Unknown History psyllium husk 0.4 gram capsule 0.4 g PO DAILY bowels 1 Unknown History (Metamucil) acetaminophen 500 mg tablet 1,000 mg PO TID 02/28/25 U nknown History artificial 1 drp ophthalmic (eye) Q4H P RN dry 02/28/25 Unknown History tears(ckpbfoc-rvvxscxp-jbjhexq) eye 0.1 %-0.3 %-0.2 % eye drops (GenTeal Tears Moderate) cholecalciferol (vitamin D3) 25 25 mcg PO DAILY Unknown History mcg (1,000 unit) capsule (Vitamin D3) ketotifen fumarate 0.025 % (0.035 1 drp EACH EYE BID P geological specialist 02/28/25 Unknown History %) eye drops ([place]) symptoms modafinil 100 mg tablet 100 mg PO SUWEFR somnolence 02/28/25 Unknown History prednisone 5 mg tablet 5 mg PO DAILY PRN pain, faraz re 02/28/25 Unknown History prednisone 5 mg tablet 15 mg PO DAILY 02/28/25 Unkn own History tramadol 50 mg tablet 50 mg PO Q6H PRN pain Unknown History Allergy/AdvReac Type Severity Reaction Status Date / Time DESMOND Inhibitors Allergy Unknown Verified 02/28/25 11:14 adhesive Allergy Unknown Verified 02/28/25 11:14 cyclobenzaprine HCl (From Allergy Unknown Verified 02/28/25 11:14 Flexeril) diclofenac sodium (From Allergy Unknown Verified 02/28/25 11:14 Arthrotec) hydrochlorothiazide Allergy Unknown Verified 02/28/25 11:14 lisinopril (From Zestril) Allergy Unknown Verified 02/28/25 11:14 metronidazole (From Flagyl) Allergy Unknown Verified 02/28/25 11:14 misoprostol (From Arthrotec) Allergy Unknown Verified 02/28/25 11:14 naproxen Allergy Unknown Verified 02/28/25 11:14 paroxetine HCl (From Paxil) Allergy Unknown Verified 02/28/25 11:14 prednisolone acetate (From Allergy Unknown Verified 02/28/25 11:14 Blephamide) sulfacetamide sodium (From Allergy Unknown Verified 02/28/25 11:14 Blephamide) Surgical History History of esophagogastroduodenoscopy (EGD) Hx of colonoscopy Hx of resection of small bowel Hx of oophorectomy Hx of tonsillectomy Hx of mastectomy H/O mastectomy Social History Smoking Status: Never smoker ROS Constitutional Constitutional: Denies fatigue, fever(s), poor appetite, weight gain or weight loss Gastrointestinal Gastrointestinal: Denies belching, bloating, change in bowel habits, change in stool character, chewing difficulty, coffee ground emesis, constipation, cramping, diarrhea, dyspepsia, dysphagia, early satiety, excessive flatus, fecal incontinence, heartburn, hematemesis, hematochezia, hemorrhoids, loose stools, melena, nausea, odynophagia, rectal bleeding, tenesmus, vomiting or weight changes Physical Exam Const alert, oriented x3, no apparent distress and healthy appearing General Appearance: cooperative GI normal to inspection, nondistended, normoactive bowel sounds, soft to palpation, non-tender and non-distended Percussion: normal to percussion Rectal Exam: deferred Lab / Micro Data 02/28/25 11:30 02/28/25 11:30 Labs: Laboratory Results - last 24 hr 02/28/25 11:30: WBC 13.1 H, RBC 2.36 L, Hgb 8.4 L, Hct 24.6 L, MCV 104.2 H, MCH 35.6 H, MCHC 34.1, RDW Std Deviation 56.2 H, RDW Coeff of Laureen 14.8 H, Plt Count 113 L, MPV 9.8, Immature Gran % (Auto) 1.400 H, Neut % (Auto) 75.9 H, Lymph % (Auto) 5.2 L, Drew % (Auto) 16.9 H, Eos % (Auto) 0.3, Baso % (Auto) 0.3, A bsolute Neuts (auto) 9.9 H, Absolute Lymphs (auto) 0.68 L, Nucleated RBC % 0, Differential Comment COMMENT, Sodium 133, Potassium 4.2, Chloride 99, Carbon Dioxide 21.2, Anion Gap 12, BUN 40 H, Creatinine 1.43 H, Estim Creat Clear Calc 29.01 L, Est GFR (MDRD) Non-Af 35 L, BUN/Creatinine Ratio 28.0 H, Glucose 105 H, Lactic Acid 2.9 H*, Calcium 9.0, Total Bilirubin 1.46 H, AST 631 H, ALT 567 H, Alkaline Phosphatase 75, Total Protein 6.0, Albumin 3.2 L, Globulin 2.8, Albumin/Globulin Ratio 1.1, Lipase 36 02/28/25 12:54: Urine Color Yellow, Urine Clarity Clear, Urine pH 5.0, Ur Specific [place] 1.015, Urine Protein 30 H, Urine Glucose (UA) Normal, Urine Ketones Negative, Urine Occult Blood 25 H, Urine Nitrite Negative, Urine Bilirubin Negative, Urine Urobilinogen Normal, Ur Leukocyte Esterase 25 H, Urine RBC 0-5 SEEN, Urine WBC 0-5 SEEN, Ur Squamous Epith Cells 0 SEEN, Urine Bacteria RARE, Urine Mucus 0 SEEN 02/28/25 15:20: PT 17.7 H, INR 1.4, APTT 33.0 02/28/25 16:20: Lactic Acid 1.9 Imaging Radiology Impression Abdomen/Pelvis CT 02/28/25 12:15 IMPRESSION: 1. Similar punctate choledocholithiasis versus pancreatic parenchymal calculus immediately adjacent to the CBD. No biliary dilatation. 2. Similar appearance of the gallbladder including cholelithiasis and minimal gallbladder wall thickening, nonspecific in the setting of cirrhosis. Acute cholecystitis is unlikely given that the gallbladder is nondistended. 3. Distal gastric wall thickening may be related to portal hypertension or could indicate gastritis of other perhaps infectious/inflammatory etiology. 4. Cirrhosis with ill defined suspected 4.7 cm indeterminate hepatic lesion. Recommend outpatient multiphase hepatic protocol MRI with and without contrast or less optimally CT if there is a contraindication. 5. Sequela of portal hypertension including splenomegaly and new small volume ascites. 6. Additional description as above. Reading Location: [facility] Assessment & Plan Assessment/Plan (1) Cirrhosis: (2) Ascites: (3) Liver lesion: PLAN: Assessment 89-year-old female with: * New onset abdominal pain. * Cirrhosis:?Evidenced by labs (INR 1.4, elevated liver enzymes, bilirubin), prior imaging findings, and likely related to new hepatic lesion and portal hypertensive gastropathy. * New 4.7 cm hepatic lesion:?Etiology unknown (likely hepatocellular carcinoma given cirrhosis history, but needs workup). * Possible choledocholithiasis/pancreatic calculus adjacent to CBD:?Potential cause of current abdominal pain and deranged liver function tests. * Anemia:?Normocytic/macrocytic anemia (Hgb 8.4, MCV 104.2/113) likely multifactorial (cirrhosis, possible GI bleed from gastropathy/ulcers, chronic disease). * Acute Kidney Injury:?Elevated BUN/Creatinine (40/1.4), likely multifactorial (dehydration, hepatorenal considerations). * Leukocytosis:?WBC 13.1, possibly related to choledocholithiasis/calculus causing inflammation or infection. * Chronic GI symptoms:?Fecal smearing/incontinence, elevated fecal calprotectin, history of diverticulitis and?C. difficile.? P - Plan * Abdominal Pain/Biliary Workup: * The differential diagnosis does include ascites, choledocholithiasis, chronic pancreatitis * New Hepatic Lesion: * new 4.7 cm lesion likely hepatocellular carcinoma.Check AFP, CA 19-9 * Obtain triple-phase CT or MRI abdomen to better characterize the lesion. * Discuss prognosis and goals of care with patient and daughter. * Anemia/Renal Injury: * Type and screen; monitor Hgb/Hct. Consider transfusion if symptomatic or Hgb drops further. * Aggressive IV fluid resuscitation, monitor urine output. * Chronic GI Symptoms/Bowels: * Review current bowel regimen (methenamine, copper, vitamin C ) can all contribute to diarrhea and her diarrhea keeps her ammonia level low. Also in light of CT findings (gastric/sigmoid thickening) are likely secondary to cirrhosis * Metamucil was previously recommended; ensure compliance or restart if appropriate, as bulk-forming agents can sometimes firm up stool consistency and improve continence in cases of overflow incontinence. * alf staff education on perineal care and maintaining current UTI preventative measures (Hiprex, Vitamin C). * Continue current chronic prednisone regimen for RA. She would need stomach protection because she likely does have some portal gastropathy plus or minus gastric varices like it was in the setting of prednisone therapy in the elderly with or without cirrhosis * Goals of Care: * detailed discussion with the patient and daughter regarding overall prognosis given the new lesion and advanced cirrhosis, establishing goals of care and code status. Charges/Coding Visit Charges Inpatient E&M: 14194 Init Hosp L3
--- NOTE | 2025-02-28 18:56 | CASEMGMT ---
Social Work SW verified with patients daughter that patient plans to return to [facility] upon discharge. Christie Garner, MATHEMATICIAN, [employer]
[2025-02-28 19:30] LABS: Hematocrit 22.4 % (37-47); Hemoglobin 7.5 g/dL (12.0-15.0); Mean Corp Hgb Conc 33.5 g/dL (32-36); Mean Corpuscular Volume 105.7 fL (81-99); Mean Platelet Vol. 9.6 fl (6.2-12.0); Platelet Count 102 K/mm3 (150-450); RBC Distribution Width CV 14.8 % (11.6-14.6); RBC Distribution Width SD 56.8 fl (35.1-43.9); Red Blood Count 2.12 M/mm3 (4.2-5.4); White Blood Count 11.3 K/mm3 (4.4-11.0)
[2025-02-28] MEDS: Pantoprazole Sodium 40 MG in 0.9% Normal Saline (100mL MB+) 100 ML 330 MG IV (21:40)
[2025-02-28] MEDS: Senna Tablet 1 TABLET PO (21:42)
[2025-02-28] MEDS: 0.9% Saline Lock 10 ML Syringe IV (21:42)
--- NOTE | 2025-02-28 23:15 | CPS ---
Pt is on home unit on room air, spo2 95% HR 69
[2025-03-01] VITALS (11 sets, daily range): BP systolic 123–144; BP diastolic 52–63; PULSE 68–97; RESP 16–20; TEMP 36.4–37.3; O2SAT 93–99; BMI 31.6
[2025-03-01] MEDS: Piperacil/Tazobactam 3.375 GM in 0.9% Normal Saline (50mL MB+) 50 ML IV ×3 (05:48→21:47)
[2025-03-01 06:07] LABS: Hematocrit 24.4 % (37-47); Hemoglobin 8.1 g/dL (12.0-15.0); Mean Corp Hgb Conc 33.2 g/dL (32-36); Mean Corpuscular Volume 107.0 fL (81-99); Mean Platelet Vol. 9.9 fl (6.2-12.0); Platelet Count 104 K/mm3 (150-450); RBC Distribution Width CV 14.8 % (11.6-14.6); RBC Distribution Width SD 57.6 fl (35.1-43.9); Red Blood Count 2.28 M/mm3 (4.2-5.4); White Blood Count 10.5 K/mm3 (4.4-11.0)
[2025-03-01 06:41] LABS: AST(SGOT) 382 U/L (<=31); Alanine Aminotransfer ALT/SGPT 444 U/L (<=34); Albumin, Serum 3.1 g/dL (3.4-4.8); Alkaline Phosphatase 73 U/L (35-104); Anion Gap 9 (5-15); BUN 31 mg/dL (4-19); BUN/Creat Ratio 36.0 RATIO (10-20); Calcium,Total 8.8 mg/dL (7.6-11.0); Carbon Dioxide 23.0 mmol/L (21.0-32.0); Chloride 107 mmol/L (98-108); Estimated Creatinine Clearance 47.27 ml/min (50-250); Globulin 2.9 g/dL (2.2-4.2); Glucose 88 mg/dL (70-99); Potassium 4.6 mmol/L (3.3-5.1)
--- NOTE | 2025-03-01 06:53 | US_ITS ---
PROCEDURE: PARACENTESIS WITH US 03/01/2025 REASON FOR EXAM: ASCITES TECHNIQUE: PARACENTESIS WITH US COMPARISON: CT examination of 02/28/2025. FINDINGS: Following informed consent, an using standard sterile technique, an ultrasound- guided right abdominal diagnostic paracentesis was performed. 2% lidocaine local anesthesia was followed by placement of a 5 Armenian 10 cm Yueh catheter into the abdominal fluid collection. Approximately 830 mL of bloody fluid was successfully removed. A portion was sent to the laboratory for evaluation. No complication was encountered, in the patient left the department in good condition without significant complaint. US/Paracentesis with US IMPRESSION: Successful diagnostic ultrasound-guided abdominal paracentesis. Laboratory res ults pending. Reading Location: [place] [address]
[2025-03-01] MEDS: Cholecalciferol (VIT D3) 25 MCG TABLET (1,000 UNITS) PO (08:57)
[2025-03-01] MEDS: Senna Tablet 1 TABLET PO ×2 (08:57→21:23)
--- NOTE | 2025-03-01 08:59 | CASEMGMT ---
Addendum entered by Aliyah Carranza 03/01/25 10:47: Updates sent via [facility] to [place] with note asking about O2 status. Response rec'd that pt does not use O2 and is on CPAP at night. RN CM updated. Original Note: Per [facility], pt resides in their [place]. Aliyah Carranza DC Planning Asst.
[2025-03-01] MEDS: Polyethylene Glycol 3350 17 GM PACKET PO (09:01)
--- NOTE | 2025-03-01 10:44 | PN_ITS ---
Subjective Subjective Patient seen and examined with her nurse by her bedside. She was admitted with a complaint of abdominal pain and imaging showed a liver mass. MRI of the abdomen showed that hte mass was highly suggestive of cancer. Patient has no active complaints this morning. She denied any nausea, vomiting or abdominal pain. Review of systems is otherwise negative. She is on 2L of oxygen. SHe is due for paracentesis. She has otherwise remained hemodynamically stable. Objective Data Objective Data Vital Signs: Vital Signs Temp Pulse Resp BP Pulse Ox O2 Del Method O2 Flow Rate 99.1 F 84 17 127/52 H 98 Nasal Cannula 2 03/01/25 08:55 03/01/25 08:55 03/01/25 08:55 03/01/25 08:55 03/01/25 08:55 03/01/25 09:00 03/01/25 09:00 FiO2 2 02/28/25 19:46 Oxygen Flow Rate (L/min) 2 Oxygen Delivery Method Nasal Cannula Weight: 184 lb 1.376 oz Body Mass Index (BMI) 31.6 Intake & Output: Intake and Output for Last 24 Hours 02/27/25 02/28/25 03/01/25 23:59 23:59 23:59 Intake Total 1270 / 1270 100 / 100 Output Total 600 / 600 750 / 750 Balance 670 / 670 -650 / -650 Lab / Micro Data 03/01/25 05:46 03/01/25 05:46 Labs: Laboratory Results - last 24 hr 02/28/25 11:30: WBC 13.1 H, RBC 2.36 L, Hgb 8.4 L, Hct 24.6 L, MCV 104.2 H, MCH 35.6 H, MCHC 34.1, RDW Std Deviation 56.2 H, RDW Coeff of Laureen 14.8 H, Plt Count 113 L, MPV 9.8, Immature Gran % (Auto) 1.400 H, Neut % (Auto) 75.9 H, Lymph % (Auto) 5.2 L, [place] % (Auto) 16.9 H, Eos % (Auto) 0.3, Baso % (Auto) 0.3, A bsolute Neuts (auto) 9.9 H, Absolute Lymphs (auto) 0.68 L, Nucleated RBC % 0, Differential Comment COMMENT, Sodium 133, Potassium 4.2, Chloride 99, Carbon Dioxide 21.2, Anion Gap 12, BUN 40 H, Creatinine 1.43 H, Estim Creat Clear Calc 29.01 L, Est GFR (MDRD) Non-Af 35 L, BUN/Creatinine Ratio 28.0 H, Glucose 105 H, Lactic Acid 2.9 H*, Calcium 9.0, Total Bilirubin 1.46 H, AST 631 H, ALT 567 H, Alkaline Phosphatase 75, Total Protein 6.0, Albumin 3.2 L, Globulin 2.8, Albumin/Globulin Ratio 1.1, Lipase 36 02/28/25 12:54: Urine Color Yellow, Urine Clarity Clear, Urine pH 5.0, Ur Specific [place] 1.015, Urine Protein 30 H, Urine Glucose (UA) Normal, Urine Ketones Negative, Urine Occult Blood 25 H, Urine Nitrite Negative, Urine Bilirubin Negative, Urine Urobilinogen Normal, Ur Leukocyte Esterase 25 H, Urine RBC 0-5 SEEN, Urine WBC 0-5 SEEN, Ur Squamous Epith Cells 0 SEEN, Urine Bacteria RARE, Urine Mucus 0 SEEN 02/28/25 15:20: PT 17.7 H, INR 1.4, APTT 33.0 02/28/25 16:20: Lactic Acid 1.9 02/28/25 19:05: WBC 11.3 H, RBC 2.12 L, Hgb 7.5 L, Hct 22.4 L, MCV 105.7 H, MCH 35.4 H, MCHC 33.5, RDW Std Deviation 56.8 H, RDW Coeff of Laureen 14.8 H, Plt Count 102 L, MPV 9.6 03/01/25 05:46: WBC 10.5, RBC 2.28 L, Hgb 8.1 L, Hct 24.4 L, MCV 107.0 H, MCH 35.5 H, MCHC 33.2, RDW Std Deviation 57.6 H, RDW Coeff of Laureen 14.8 H, Plt Count 104 L, MPV 9.9, Sodium 138, Potassium 4.6, Chloride 107, Carbon Dioxide 23.0, Anion Gap 9, BUN 31 H, Creatinine 0.86, Estim Creat Clear Calc 47.27 L, Est GFR (MDRD) Non-Af 65, BUN/Creatinine Ratio 36.0 H, Glucose 88, Calcium 8.8, Total Bilirubin 1.14, AST 382 H, ALT 444 H, Alkaline Phosphatase 73, Total Protein 6.0, Albumin 3.1 L, Globulin 2.9, Albumin/Globulin Ratio 1.1 Radiography Diagnostic Testing: Radiology Impression Abdomen/Pelvis CT 02/28/25 12:15 IMPRESSION: 1. Similar punctate choledocholithiasis versus pancreatic parenchymal calculus immediately adjacent to the CBD. No biliary dilatation. 2. Similar appearance of the gallbladder including cholelithiasis and minimal gallbladder wall thickening, nonspecific in the setting of cirrhosis. Acute cholecystitis is unlikely given that the gallbladder is nondistended. 3. Distal gastric wall thickening may be related to portal hypertension or could indicate gastritis of other perhaps infectious/inflammatory etiology. 4. Cirrhosis with ill defined suspected 4.7 cm indeterminate hepatic lesion. Recommend outpatient multiphase hepatic protocol MRI with and without contrast or less optimally CT if there is a contraindication. 5. Sequela of portal hypertension including splenomegaly and new small volume ascites. 6. Additional description as above. Reading Location: [facility] Abdomen MRI 02/28/25 15:16 IMPRESSION: Liver cirrhosis with segment 6 mass displaying MRI signal as detailed suggestive of HCC. Advise AFP correlation. Hepatic bi-lobar regeneration nodules. Mild ascites and portal hypertension. Gall bladder calculi. Reading Location: [place] [address] Physical Exam Const alert, oriented x3 and no apparent distress Constitutional Narrative: frail General Appearance: cooperative HEENT normocephalic, head/scalp atraumatic, moist oral mucous membranes and oropharynx normal Neck supple and no JVD Lymph Lymphatic: no lymphedema noted Resp normal respiratory effort, normal air movement and clear to auscultation bilaterally Cardio regular rate, regular rhythm, S1 normal heart sound, S2 normal heart sound and no murmurs GI normal to inspection, nondistended, normoactive bowel sounds, soft to palpation and non-tender GI Narrative: positive fluid thrill Extremity normal capillary refill, no clubbing, cyanosis or edema and no calf tenderness General Extremity: no tenderness to palpation of joints or extremities Skin General Skin Exam: no breakdown Neuro no focal motor deficits and no sensory deficits noted Motor Exam: general weakness Psych thought process normal, cooperative and affect normal Appearance: appropriate Assessment & Plan Assessment/Plan (1) Ascites: (2) Cirrhosis: (3) Liver lesion: PLAN: Plan #liver mass, concerning for liver malignancy * Patient admitted with a complaint of abdominal pain. 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 * CT abdomen and pelvis showed an ill-defined 4.7 cm indeterminate hepatic lesion with new small volume ascites. * MRI of the abdomen done to further delineate liver mass showed that it was highly suggestive of hepatocellular carcinoma * for diagnostic and therapeutic paracentesis * patient wants to think about treatment modalities for some time before deciding on whether she wants to continue treatment, but is leaning towards not undergoing treatment and opting for comfort care due to her advanced age. * #Acute on chronic anemia * Hb was 8.4 on admission with a baseline of around 11. * She has not had any hematemesis or hematochezia or dark stools. On IV pantoprazole 40 mg twice daily. * Hemoglobin today is 8.1. Dropped to 7.5 yesterday. #THrombocytopenia: Platelets are 104 today. were 102 yesterday, likely due to history of cirrhosis. Will monitor closely #SUE: 3. Due to anemia and poor oral intake. Resovled with IVF. Cr is down to 0.86. Was 1.43 on admission. #Lactic acidosis: resolved. lactic acid was 2.9 on admission. now resolved. #Rheumatoid arthritis: on prednisone and gabapentin #Hypertension: Metoprolol and Lasix held on admission due to SUE. #Anxiety and depression: On escitalopram #Hypothyroidism: On Synthroid #DVT prophylaxis: SCDs CODE STATUS: DNR CCA DO NOT INTUBATE Charges/Coding Visit Charges Inpatient E&M: 92569 Subs Hosp L2
[2025-03-01] MEDS: Pantoprazole Sodium 40 MG in 0.9% Normal Saline (100mL MB+) 100 ML 330 MG IV ×2 (10:57→21:16)
--- NOTE | 2025-03-01 12:21 | CASEMGMT ---
Social Work SW spoke with the daughter and she requested to be the personal insurance advisor to schedule the family meeting. NELSON emailed the hospice referral to [facility]. JOIE Delacruz
[2025-03-01] MEDS: Lidocaine 2% (20 ml mdv) 20 ML Vial INFILT (12:33)
--- NOTE | 2025-03-01 12:35 | FLU_PTH ---
PATIENT: CHRISTIAN CARDENAS LOC: [facility] U#:[id number] AGE/SX: 89/F ROOM: [facility] RE02/28/[address]: Dr. Ragini Hand MD : [id number] BED: 1 DIS: 03/02/2025 SPEC #: [id number] RECD: 03/01/25 14:34 STATUS: CELESTINO REQ #: [id number] ROXANN: 03/01/25 12:[address]: Ragini Hand DEPT: CYTOLOGY RECD BY: Rocky Marley ENTERED: 03/02/25 09:31 SP TYPE: Fluid OTHR DR: Dr. Cachorro Rascon, DO Dr. Janes Engel, DO MD Dr. Juliet Laureano MD Dr. Prakash Chand, MD Dr. Rahsaan Friend, DO Galina Horner, HEALTH AND NUTRITION SPECIALIST-C Yumiko Peguero, HEALTH AND NUTRITION SPECIALIST-C Juliet Parham, HEALTH AND NUTRITION SPECIALIST-C Danielle Coyle, HEALTH AND NUTRITION SPECIALIST-C Anastasia Hernandez, HEALTH AND NUTRITION SPECIALIST-C ARTEMIO Arellano PA Tissues: A - PARACENTESIS FLUID Procedures: Special Stain Group II Surgery Specimen Level IV Cytospin Fluid HEADER OPERATION: Paracentesis PRE-OP DIAGNOSIS: Ascites TISSUE SUBMITTED: A- Paracentesis fluid for cytology DIAGNOSIS CYTOLOGY A. Ascitic fluid, paracentesis (cytospin, cellblock): - No malignant cells identified. CYTOLOGY STUDY Slides are reviewed. CYTOLOGY GROSS A. Received is 90 ml of cloudy-dark red fluid labeled with the patient's name and and designated per the requisition as Paracentesis fluid. Submitted for cytology and cell block preparation. 03/02/2025 CPT: 19839,63548
--- NOTE | 2025-03-01 13:57 | CASEMGMT ---
Social Work SW called [facility] and was told they have not processed the referral yet. JOIE Delacruz
[2025-03-01 14:42] LABS: Cytology, Body Fluid / CSF SEE PATHOLOGY REPORT
[2025-03-01] MEDS: 0.9% Saline Lock 10 ML Syringe IV ×2 (15:09→21:27)
--- NOTE | 2025-03-01 15:14 | CASEMGMT ---
Discharge Planning [facility] has been consulted. HC POA forms requested earlier in the day but have not been received. Aliyah Carranza DC Planning Asst.
[2025-03-01 15:30] LABS: Body Fluid Mononuclear WBC # 0.546 10^3/uL; Body Fluid Mononuclear WBC % 26.0 %; Body Fluid Polynuclear WBC # 1.553 10^3/uL; Body Fluid Polynuclear WBC % 74.0 %; Red Cell Count/Body Fluid 4.818 10^6/ul; White Blood Count/Body Fluid 2.099 10^3/uL
--- NOTE | 2025-03-01 15:30 | CASEMGMT ---
Social Work [facility] called SW and reported nurse is meeting with the family at 530pm [facility]. SW informed the physician and nurse. JOIE Delacruz
[2025-03-01 16:47] LABS: Glucose, Body Fluid 112 mg/dL (Not Establ.)
[2025-03-01] MEDS: Fluticasone 0.05% 1 SPRAY NASAL.SRY 2 SPRAY NASAL (18:03)
[2025-03-01 18:16] LABS: Appearance/Body Fluid CLOUDY; Auto B Fluid Analyzer BKGD Ct COUNTS W/IN LIMITS (W/IN LIMITS); Body Fluid QC Type(s) BF1Q; Color/Body Fluid RED; Source- Body Fluid PARACENTESIS
[2025-03-01 20:20] LABS: Neutrophil (Segs) 74 %
[2025-03-01 20:21] LABS: Other Cell Type/BF 2 %
[2025-03-02] VITALS (8 sets, daily range): BP systolic 114–129; BP diastolic 51–59; PULSE 78–134; RESP 16–19; TEMP 36.6–37.5; O2SAT 91–96; BMI 31.8
[2025-03-02] MEDS: 0.9% Saline Lock 10 ML Syringe IV (02:01)
[2025-03-02] MEDS: Piperacil/Tazobactam 3.375 GM in 0.9% Normal Saline (50mL MB+) 50 ML IV ×2 (06:30→15:09)
--- NOTE | 2025-03-02 08:41 | CASEMGMT ---
Social Work NELSON received a VM from [place] with [facility] hospice. Selma stated the patient reported she is not ready for hospice. Selma stated she is going to make a referral for palliative care. Patient was on palliative previously. JOIE Delacruz
[2025-03-02] MEDS: Polyethylene Glycol 3350 17 GM PACKET PO (08:59)
[2025-03-02] MEDS: Cholecalciferol (VIT D3) 25 MCG TABLET (1,000 UNITS) PO (09:00)
[2025-03-02] MEDS: Fluticasone 0.05% 1 SPRAY NASAL.SRY 2 SPRAY NASAL (09:00)
[2025-03-02] MEDS: Senna Tablet 1 TABLET PO (09:00)
[2025-03-02] MEDS: Pantoprazole Sodium 40 MG in 0.9% Normal Saline (100mL MB+) 100 ML 330 MG IV (09:03)
--- NOTE | 2025-03-02 09:09 | CASEMGMT ---
Advanced Directives HC POA [facility] stickered and placed in chart. SW updated. Aliyah Carranza DC Planning Asst.
--- NOTE | 2025-03-02 11:03 | CASEMGMT ---
Social Work SW spoke with the patient about DC today back to [facility]. Patient reported she will SW to set up transportation. Patient reported she is going to have palliative care. JOIE Hunt
--- NOTE | 2025-03-02 11:16 | CASEMGMT ---
Discharge Planning Updates sent via [facility] to [facility]. Aliyah Carranza DC Planning Asst.
--- NOTE | 2025-03-02 12:23 | CASEMGMT ---
Discharge Planning Per Ludivina @ [facility], pt is appropriate to return to [place]. Aliyah Carranza DC Planning Asst.
[2025-03-02 12:35] LABS: Pathologist Comment/Body Fluid Reviewed
--- NOTE | 2025-03-02 14:32 | TREXTCAR_ITS ---
Diet Diet Order/Speech Therapy: INPATIENT Hospital Diet / Speech Therapy Order(s) 02/28/25 16:47 Diet: Cardiac - Heart Healthy Food consistency:: Regular Liquid Consistency:: Regular/Thin Dietary Modifications:: Sodium Restricted Routine Orders/Code Status Enema Type: Fleetz Enema Frequency: Daily PRN Suppository Type: Dulcolax 10mg Suppository Frequency: Daily PRN DC O2, CPAP, BIPAP needs Home O2 Discharge instructions: No Wound(s) right lateral abdomen: Wound Type: Puncture Therapies Weight Bearing: Weight bearing as tolerated Physical Therapy: Eval and Treat Occupational Therapy: Eval and Treat Problem/Diagnosis (1) Ascites: Status: Acute Code(s): R18.8 - Other ascites (2) Cirrhosis: Status: Acute Code(s): K74.60 - Unspecified cirrhosis of liver Comment: FROM MEDS (3) Liver lesion: Status: Acute Code(s): K76.9 - Liver disease, unspecified Plan #liver mass, concerning for liver malignancy * Patient admitted with a complaint of abdominal pain. 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 * CT abdomen and pelvis showed an ill-defined 4.7 cm indeterminate hepatic lesion with new small volume ascites. * MRI of the abdomen done to further delineate liver mass showed that it was highly suggestive of hepatocellular carcinoma * for diagnostic and therapeutic paracentesis * patient wants to think about treatment modalities for some time before deciding on whether she wants to continue treatment, but is leaning towards not undergoing treatment and opting for comfort care due to her advanced age. * #Acute on chronic anemia * Hb was 8.4 on admission with a baseline of around 11. * She has not had any hematemesis or hematochezia or dark stools. On IV pantoprazole 40 mg twice daily. * Hemoglobin today is 8.1. Dropped to 7.5 yesterday. #THrombocytopenia: Platelets are 104 today. were 102 yesterday, likely due to history of cirrhosis. Will monitor closely #SUE: 3. Due to anemia and poor oral intake. Resovled with IVF. Cr is down to 0.86. Was 1.43 on admission. #Lactic acidosis: resolved. lactic acid was 2.9 on admission. now resolved. #Rheumatoid arthritis: on prednisone and gabapentin #Hypertension: Metoprolol and Lasix held on admission due to SUE. #Anxiety and depression: On escitalopram #Hypothyroidism: On Synthroid #DVT prophylaxis: SCDs CODE STATUS: DNR CCA DO NOT INTUBATE Allergies/Procedures Done in Hospital Allergies DESMOND Inhibitors Allergy (Verified 02/28/25 11:14) Unknown ERROR adhesive Allergy (Verified 02/28/25 11:14) Unknown cyclobenzaprine HCl (From Flexeril) Allergy (Verified 02/28/25 11:14) Unknown diclofenac sodium (From Arthrotec) Allergy (Verified 02/28/25 11:14) Unknown hydrochlorothiazide Allergy (Verified 02/28/25 11:14) Unknown lisinopril (From Zestril) Allergy (Verified 02/28/25 11:14) Unknown metronidazole (From Flagyl) Allergy (Verified 02/28/25 11:14) Unknown misoprostol (From Arthrotec) Allergy (Verified 02/28/25 11:14) Unknown naproxen Allergy (Verified 02/28/25 11:14) Unknown paroxetine HCl (From Paxil) Allergy (Verified 02/28/25 11:14) Unknown prednisolone acetate (From Blephamide) Allergy (Verified 02/28/25 11:14) Unknown sulfacetamide sodium (From Blephamide) Allergy (Verified 02/28/25 11:14) Unknown Procedures: None Type of Care/Length of Stay Estimated LOS: Convalescent Care Less Than 30 days Type of Care Needed: Skilled Rehab Potential: Fair Prognosis: Fair Additional Orders/Day of Discharge Day of Discharge: 03/02/25 Discharge Plan Admission Admit Date/Time: 02/28/25 15:04 Primary Reason for Your Visit: liver lesion suspicious for liver cancer Attending Provider: Ragini Hand Primary Care Provider: Galina Horner NP Consulting Providers: Benigno Oviedo; Hermann Matson; Yumiko Peguero; Juliet Parham; Hilda Burgos; Cachorro Rascon; Janes Engel; Jennifer Rockwell; Juliet Walton; Danielle Coyle; Anastasia Hernandez CULTURE ROOM WORKER; Katie Bonilla Instructions Patient Instructions: Liver Cancer: Introduction Discharge Orders/Prescriptions Prescriptions: New acetaminophen [Tylenol] 325 mg tablet 650 mg PO Q6H PRN (Reason: fever or pain) Qty: 30 2RF Continued polyethylene glycol 3350 17 gram powder in packet 17 g PO QDAY PRN (Reason: constipation) escitalopram oxalate 10 mg tablet 10 mg PO QDAY furosemide [Lasix] 20 mg tablet 20 mg PO Q OTHER DAY methenamine hippurate 1 gram tablet 1 g PO BID metoprolol succinate 25 mg tablet extended release 24 hr 25 mg PO QDAY levothyroxine 25 mcg capsule 25 mcg PO QDAY omeprazole 40 mg capsule,delayed release(DR/EC) 40 mg PO QDAY ferrous gluconate 324 mg (37.5 mg iron) tablet 324 mg PO QDAY cetirizine 10 mg tablet 10 mg PO QDAY fluticasone propionate [Flonase Allergy Relief] 50 mcg/actuation spray,suspension 2 spray intranasal QDAY Rx Instructions: administer into each nostril Artificial Tears (cmc) 1 % drops 1 drp ophthalmic (eye) 4-6XD PRN (Reason: dry eye(s)) copper gluconate 2 mg capsule 2 mg PO QDAY Prolia 60 mg/mL syringe 60 mg subcut [id number] ascorbate calcium (vitamin C) 500 mg tablet 500 mg PO QDAY guaifenesin 100 mg/5 mL liquid 200 mg PO Q4H PRN (Reason: congestion) gabapentin 100 mg capsule 200 mg PO QHS Patient Comments: [NO ORIGINAL SIG] psyllium husk [Metamucil] 0.4 gram capsule 0.4 g PO DAILY estradiol 0.01 % (0.1 mg/gram) cream 1 appful vaginal Q3D Rx Instructions: for 14 days diclofenac sodium [Voltaren] 100 GM gel 4 g topical 4X/DAY PRN (Reason: Pain) prednisone 5 mg tablet 15 mg PO DAILY prednisone 5 mg tablet 5 mg PO DAILY PRN (Reason: pain, severe) Patient Comments: prn in addition to 15mg daily ketotifen fumarate [Alaway] 0.025 % (0.035 %) drops 1 drp EACH EYE BID PRN (Reason: allergy symptoms) Rx Instructions: administer at least 8 hours apart cholecalciferol (vitamin D3) [Vitamin D3] 25 mcg (1,000 unit) capsule 25 mcg PO DAILY tramadol 50 mg tablet 50 mg PO Q6H PRN (Reason: pain) modafinil 100 mg tablet 100 mg PO SUWEFR artificial tear(sebwt-aif-grg) [GenTeal Tears Moderate] 0.1-0.3-0.2 % drops 1 drp ophthalmic (eye) Q4H PRN (Reason: dry eye) Patient Comments: [NO ORIGINAL SIG] Handicapped placcard See Rx Instructions .ROUTE .COMPLEX Qty: 1 0RF Rx Instructions: 1 each; 5 years. Expires 03/22/27. Discontinued acetaminophen 500 mg tablet 1,000 mg PO TID Referrals / Follow Up: Sal Bonilla DO [Med Staff - Active Staff, Oncology] - Within 1 Week Referral Note: see to establish care for presumptive hepatocellular carcinoma Galina Horner NP, CULTURE ROOM WORKER-C [Primary Care Provider, Internal Medicine] - Within 1 Week Disposition Disposition (needs filled in before D/C Order can be placed): [facility]
--- NOTE | 2025-03-02 14:34 | PCM.DC.SUM ---
Providers Date of Admission: 02/28/25 Date of Discharge: 03/02/25 Primary Care Physician: Galina Horner, OLIVE Consultations 02/28/25 16:47 Consult: Gastroenterology Routine Consulting Provider: [facility] Reason for Consult: cirrhosis w/ liver lesion, worsening LFTs EMERGENT Consult: No Notified: Yes Date Notified: 02/28/25 Time Notified: 17:56 Method of Notification: ED Physician Initiated Comments:: has already seen pt for consult 03/01/25 11:30 Consult: Hospice / Outpatient Palliative Care Routine Consulting Provider: [facility] Reason for Consult: presumptive hepatocellular carcinoma EMERGENT Consult: No Notified: Yes Date Notified: 03/01/25 Time Notified: 11:31 Method of Notification: per soical services Reason For Visit: ABD PAIN WITH LIVER LESION IN SETTING OF CIRRHOSIS Diagnosis Discharge Diagnosis (1) Ascites: Status: Acute Code(s): R18.8 - Other ascites (2) Cirrhosis: Status: Acute Code(s): K74.60 - Unspecified cirrhosis of liver (3) Liver lesion: Status: Acute Code(s): K76.9 - Liver disease, unspecified Plan #liver mass, concerning for liver malignancy Patient admitted with a complaint of abdominal pain. 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 CT abdomen and pelvis showed an ill-defined 4.7 cm indeterminate hepatic lesion with new small volume ascites. MRI of the abdomen done to further delineate liver mass showed that it was highly suggestive of hepatocellular carcinoma for diagnostic and therapeutic paracentesis patient wants to think about treatment modalities for some time before deciding on whether she wants to continue treatment, but is leaning towards not undergoing treatment and opting for comfort care due to her advanced age. #Acute on chronic anemia Hb was 8.4 on admission with a baseline of around 11. She has not had any hematemesis or hematochezia or dark stools. On IV pantoprazole 40 mg twice daily. Hemoglobin today is 8.1. Dropped to 7.5 yesterday. #THrombocytopenia: Platelets are 104 today. were 102 yesterday, likely due to history of cirrhosis. Will monitor closely #SUE: 3. Due to anemia and poor oral intake. Resovled with IVF. Cr is down to 0.86. Was 1.43 on admission. #Lactic acidosis: resolved. lactic acid was 2.9 on admission. now resolved. #Rheumatoid arthritis: on prednisone and gabapentin #Hypertension: Metoprolol and Lasix held on admission due to SUE. #Anxiety and depression: On escitalopram #Hypothyroidism: On Synthroid #DVT prophylaxis: SCDs CODE STATUS: DNR CCA DO NOT INTUBATE Medications at Discharge Home Medications diclofenac sodium 1 % topical gel (Voltaren) 4 g topical 4X/DAY PRN Pain 03/26/18 Handicapped placcard See Rx Instructions .Route .COMPLEX #1 unit 04/22/22 polyethylene glycol 3350 17 gram oral powder packet 17 g PO QDAY PRN constipation 08/13/24 carboxymethylcellulose sodium 1 % eye drops (Artificial Tears (carboxymethylcellulose)) 1 drp ophthalmic (eye) 4-6XD PRN dry eye(s) 09/07/24 cetirizine 10 mg tablet 10 mg PO QDAY 09/07/24 copper gluconate 2 mg capsule 2 mg PO QDAY 09/07/24 denosumab 60 mg/mL subcutaneous syringe (Prolia) 60 mg subcut [id number] 09/07/24 escitalopram oxalate 10 mg tablet 10 mg PO QDAY 09/07/24 ferrous gluconate 324 mg (37.5 mg iron) tablet 324 mg PO QDAY 09/07/24 fluticasone propionate 50 mcg/actuation nasal spray,suspension (Flonase Allergy Relief) 2 spray intranasal QDAY 09/07/24 furosemide 20 mg tablet (Lasix) 20 mg PO Q OTHER DAY 09/07/24 levothyroxine 25 mcg capsule 25 mcg PO QDAY 09/07/24 methenamine hippurate 1 gram tablet 1 g PO BID 09/07/24 metoprolol succinate 25 mg tablet,extended release 24 hr 25 mg PO QDAY 09/07/24 omeprazole 40 mg capsule,delayed release 40 mg PO QDAY 09/07/24 ascorbate calcium (vitamin C) 500 mg tablet 500 mg PO QDAY 09/24/24 estradiol 0.01% (0.1 mg/gram) vaginal cream 1 appful vaginal Q3D 11/22/24 gabapentin 100 mg capsule 200 mg PO QHS 01/11/25 guaifenesin 100 mg/5 mL oral liquid 200 mg PO Q4H PRN congestion 01/11/25 psyllium husk 0.4 gram capsule (Metamucil) 0.4 g PO DAILY bowels 01/11/25 artificial tears(hmjkxoj-ensijrlx-ctdvwqg) 0.1 %-0.3 %-0.2 % eye drops (GenTeal Tears Moderate) 1 drp ophthalmic (eye) Q4H PRN dry eye 02/28/25 cholecalciferol (vitamin D3) 25 mcg (1,000 unit) capsule (Vitamin D3) 25 mcg PO DAILY 02/28/25 ketotifen fumarate 0.025 % (0.035 %) eye drops (Alaway) 1 drp EACH EYE BID PRN allergy symptoms 02/28/25 modafinil 100 mg tablet 100 mg PO SUWEFR somnolence 02/28/25 prednisone 5 mg tablet 5 mg PO DAILY PRN pain, severe 02/28/25 prednisone 5 mg tablet 15 mg PO DAILY 02/28/25 tramadol 50 mg tablet 50 mg PO Q6H PRN pain 02/28/25 acetaminophen 325 mg tablet (Tylenol) 650 mg (2 x 325 mg) PO Q6H PRN fever or pain #30 tabs 03/02/25 Hospital Course Operations None Procedures Paracentesis Summary of Care Provided Minutes Spent on Discharge: 41 Hospital Course: Patient is an 89-year-old female with past medical history as outlined was admitted through the ED on 02/28/2025 with complaint of abdominal pain. She was admitted from her retirement. He had a history of cirrhosis due to methotrexate use. CT of the abdomen and pelvis done showed cirrhosis with new ill-defined 4.7 cm indeterminate hepatic lesion with new small volume ascites and gastric wall thickening with no other concerning findings. Labs were significant for hemoglobin of 8.4 and WBC of 13 with INR of 1.4 and creatinine of 1.43. Lactic acid was 2.9. AST and ALT were elevated at 631 and 567 respectively. ED discussed with gastroenterology who was concerned about a possible hepatocellular carcinoma and so requested MRI with and without contrast. She was therefore admitted to be evaluated for abdominal pain due to liver mass concerning for liver cancer. She was hydrated with IV fluids and given pain medication. She had the MRI of the liver with and without contrast which showed high suspicion for hepatocellular carcinoma. Treatment modalities were discussed with patient also taking into consideration her advanced age and likely reduced performance status. She had paracentesis with removal of 830 mL of bloody fluid. Patient says she did not want any surgery and initially requested hospice consult. However after hospice evaluated patient and she opted for palliative care consult and decided she wanted to follow-up with her oncologist on outpatient basis and did not want oncology to be consulted here. Patient was therefore discharged back [facility] her [facility] facility on 03/02/2025. An appointment was made for her with [facility] oncology for September 20, 2024 which was the earliest appointment she could get. She is follow-up with her primary care doctor and with oncology as stated. Patient seen and examined prior to discharge. She had no active complaints. Abdominal pain had resolved. Review of systems otherwise negative. Labs and vitals reviewed. Home medication reviewed and reconciled. Physical Exam Const alert, oriented x3 and no apparent distress Constitutional Narrative: frail General Appearance: cooperative and comfortable HEENT normocephalic, head/scalp atraumatic and moist oral mucous membranes Mouth: oral and palatal mucosa normal Eyes PERRL and conjunctivae normal Neck full ROM, supple and no JVD Lymph Lymphatic: no lymphedema noted Chest inspection of chest normal Resp normal respiratory effort, normal air movement, no use of accessory muscles and clear to auscultation bilaterally Cardio regular rate, regular rhythm, S1 normal heart sound, S2 normal heart sound, no murmurs and peripheral pulses 2+ throughout GI normal to inspection, nondistended, normoactive bowel sounds, soft to palpation and non-tender GI Narrative: positive fluid thrill Back/Spine normal ROM Extremity normal to inspection, full ROM, normal capillary refill, no clubbing, cyanosis or edema, no calf tenderness and no pedal edema General Extremity: no tenderness to palpation of joints or extremities Skin no rashes or lesions noted General Skin Exam: no breakdown Neuro oriented x3, moves all extremities, no focal motor deficits and no sensory deficits noted Sensorium / Orientation: awake Speech: speech normal Motor Exam: general weakness Psych mental status grossly normal, thought process normal, cooperative and affect normal Appearance: appropriate Weight / BMI Weight Weight: 185 lb 3.013 oz Body Mass Index (BMI) 31.8 ABG / Lab / Microbiology Data 03/01/25 05:46 03/01/25 05:46 Laboratory: Laboratory Results - last 24 hr 03/01/25 12:35: Fluid Source PARACENTESIS, Fluid Color RED, Fluid Appearance CLOUDY, Fluid WBC 2.099, Fluid RBC 4.818, Fluid Tot Cell Count 2.139 H, Fld Polynuclear WBCs # 1.553, Fld Polynuclear WBCs % 74.0, Fluid Mononuclear WBCs 0.546, Fld Mononuclear WBCs % 26.0, Fluid Neutrophils 74, Fluid Lymphocytes 16, Fluid Monocytes 6, Fluid Macrophages 2, Fluid Other Cells 2, Fl Pathologist Comment Reviewed, Fluid Glucose 112, Fluid Total Protein 2.2, Fluid LDH 230, Fluid Comment 2 SEE COMMENT Microbiology: Microbiology 02/28/25 16:20 Blood Culture (Wb) - Line Draw Blood Culture - Preliminary No growth in 48 hours. Radiography Diagnostic Testing: Radiology Impression Paracentesis Ultrasound 03/01/25 06:53 IMPRESSION: Successful diagnostic ultrasound-guided abdominal paracentesis. Laboratory results pending. Reading Location: [place] [id number] D/C Instructions Discharge Activity: Return to Normal Activity Call your doctor if you observe: Fever of 101 or Higher, Shortness of breath, Dizziness, Swelling in the ankles, Chest pain, Increased palpitations (irregular heartbeat) and Uncontrolled pain DC O2, CPAP, BIPAP Needs Home O2 Discharge instructions: No DC home with Oxygen: No Patient's Goals Of Care - F/U Goals Reviewed Goals of care reviewed with patient: Yes - No change Meaningful Use Info Meaningful Use Meaningful Use Diagnoses (Choose all that apply): None applicable Discharge Plan Admission Admit Date/Time: 02/28/25 15:04 Primary Reason for Your Visit: liver lesion suspicious for liver cancer Attending Provider: Ragini Hand Primary Care Provider: Galina Horner NP Consulting Providers: Benigno Oviedo; Hermann Matson; Yumiko Peguero; Juliet Parham; Hilda Burgos; Cachorro Rascon; Janes Engel; Jennifer Rockwell; Juliet Walton; Danielle Coyle; Anastasia Hernandez SHUTTLE INSPECTOR; Katie Bonilla Instructions Patient Instructions: Liver Cancer: Introduction Discharge Orders/Prescriptions Prescriptions: New acetaminophen [Tylenol] 325 mg tablet 650 mg PO Q6H PRN (Reason: fever or pain) Qty: 30 2RF Continued polyethylene glycol 3350 17 gram powder in packet 17 g PO QDAY PRN (Reason: constipation) escitalopram oxalate 10 mg tablet 10 mg PO QDAY furosemide [Lasix] 20 mg tablet 20 mg PO Q OTHER DAY methenamine hippurate 1 gram tablet 1 g PO BID metoprolol succinate 25 mg tablet extended release 24 hr 25 mg PO QDAY levothyroxine 25 mcg capsule 25 mcg PO QDAY omeprazole 40 mg capsule,delayed release(DR/EC) 40 mg PO QDAY ferrous gluconate 324 mg (37.5 mg iron) tablet 324 mg PO QDAY cetirizine 10 mg tablet 10 mg PO QDAY fluticasone propionate [Flonase Allergy Relief] 50 mcg/actuation spray,suspension 2 spray intranasal QDAY Rx Instructions: administer into each nostril Artificial Tears (cmc) 1 % drops 1 drp ophthalmic (eye) 4-6XD PRN (Reason: dry eye(s)) copper gluconate 2 mg capsule 2 mg PO QDAY Prolia 60 mg/mL syringe 60 mg subcut [id number] ascorbate calcium (vitamin C) 500 mg tablet 500 mg PO QDAY guaifenesin 100 mg/5 mL liquid 200 mg PO Q4H PRN (Reason: congestion) gabapentin 100 mg capsule 200 mg PO QHS Patient Comments: [NO ORIGINAL SIG] psyllium husk [Metamucil] 0.4 gram capsule 0.4 g PO DAILY estradiol 0.01 % (0.1 mg/gram) cream 1 appful vaginal Q3D Rx Instructions: for 14 days diclofenac sodium [Voltaren] 100 GM gel 4 g topical 4X/DAY PRN (Reason: Pain) prednisone 5 mg tablet 15 mg PO DAILY prednisone 5 mg tablet 5 mg PO DAILY PRN (Reason: pain, severe) Patient Comments: prn in addition to 15mg daily ketotifen fumarate [Alaway] 0.025 % (0.035 %) drops 1 drp EACH EYE BID PRN (Reason: allergy symptoms) Rx Instructions: administer at least 8 hours apart cholecalciferol (vitamin D3) [Vitamin D3] 25 mcg (1,000 unit) capsule 25 mcg PO DAILY tramadol 50 mg tablet 50 mg PO Q6H PRN (Reason: pain) modafinil 100 mg tablet 100 mg PO SUWEFR artificial tear(pyaih-bra-ctd) [GenTeal Tears Moderate] 0.1-0.3-0.2 % drops 1 drp ophthalmic (eye) Q4H PRN (Reason: dry eye) Patient Comments: [NO ORIGINAL SIG] Handicapped placcard See Rx Instructions .ROUTE .COMPLEX Qty: 1 0RF Rx Instructions: 1 each; 5 years. Expires 03/22/27. Discontinued acetaminophen 500 mg tablet 1,000 mg PO TID Referrals / Follow Up: Sal Bonilla DO [Med Staff - Active Staff, Oncology] - 03/23/25 1:15 pm Referral Note: OFFICE WILL CALL PATIENT IF DOCTOR NEEDS TO MOVE APPOINTMENT UP- Mar IS CURRENT APPOINTMENT (LAB IS 1:30PM AND 2:00PM IS OFFICE VISIT NOT A HOSPITAL FOLLOW UP) Galina Horner SHUTTLE INSPECTOR, SHUTTLE INSPECTOR-C [Primary Care Provider, Internal Medicine] - Within 1 Week Disposition Disposition (needs filled in before D/C Order can be placed): [facility] Charges/Coding Visit Charges Inpatient E&M: 66245 Disch Hosp >30min
--- NOTE | 2025-03-02 15:16 | CASEMGMT ---
Discharge Planning Discharge orders and signed med list (physician believed pt was going to snf), and transport time sent to [facility] via [facility]. Physicians will transport pt by wheelchair at 4:30p. Nursing, SW, pt, and her daughter (Eloisa) updated. Aliyah Carranza DC Planning Asst.
--- NOTE | 2025-03-02 17:16 | PN_ITS ---
Progress Note 89-year-old female with a new diagnosis of cirrhosis and a liver lesion, presumed to be advanced hepatocellular carcinoma. Patient is currently experie ncing complications of intra-abdominal ascites. The patient's daughter is present at the bedside.? * Patient recently underwent large-volume paracentesis. * Paracentesis fluid analysis was negative for HPP (Hepatocellular Carcinoma cells in paracentesis fluid). * Patient is receiving IV antibiotics and has been switched to oral antibiotics .? Physical Exam Const alert, oriented x3, no apparent distress and healthy appearing General Appearance: cooperative GI normal to inspection, nondistended, normoactive bowel sounds, soft to palpation, non-tender and non-distended Percussion: normal to percussion Rectal Exam: deferred Assessment & Plan Assessment/Plan (1) Liver lesion: (2) Ascites: (3) Cirrhosis: PLAN: Assessment * New diagnosis of cirrhosis and presumed advanced hepatocellular carcinoma (HCC). * Cirrhosis is complicated by symptomatic intra-abdominal ascites. * Given the patient's advanced age, new diagnosis, and presumed advanced disease state, she is unlikely to be a candidate for aggressive curative treatment of HCC. * Focus of care is shifting towards palliative management of symptoms, specifically recurrent ascites.? Plan * Goals of Care:?Discussed goals of care and prognosis with the patient and her daughter. Agreed upon a shift from curative-intent treatment for HCC to a palliative approach focused on symptom management and quality of life. * Palliative Paracentesis:?Discussed the option of repeated palliative paracentesis for symptomatic management of ascites. * Oncology/Palliative Care Referral:?Pending further discussion with primary team, consider a formal referral to Palliative Care team for ongoing symptom management and support, and potentially a referral to Oncology for confirmation of HCC diagnosis and further palliative treatment options if appropriate (e.g., discussion of sorafenib in an elderly patient). * Monitoring:?Continue current antibiotic regimen for the presumed cause of the ascites or potential spontaneous bacterial peritonitis (SBP). * Follow-up:?Continue to monitor clinical status and response to current management. Schedule follow-up appointment to discuss further palliative care plans as needed Portions of this note were generated using voice recognition software ([employer] Dictation). I have reviewed the contents and every effort has been made to ensure accuracy; however, inadvertent errors in grammar, spelling, punctuation, or word choice may occur, that were not noted before signing the document and should not alter the intended clinical meaning. Visit Charges Inpatient E&M: 83150 Subs Hosp L3
== END 2025-03-02 17:02 | disposition skilled nursing facility (03) | DRG 432 ==
LOC: ED 15:00 → PCU 15:48
PROVIDERS: Admitting Provider Hospitalist; Emergency Provider Surgery; PCP Nurse Practitioner Adult Health; Visit Provider Student in an Organized Health Care Education/Training Program
DX: K74.60 Unspecified cirrhosis of liver (principal); K76.7 Hepatorenal syndrome; E87.20 Acidosis, unspecified; N17.9 Acute kidney failure, unspecified; R18.8 Other ascites; R16.0 Hepatomegaly, not elsewhere classified; M06.9 Rheumatoid arthritis, unspecified; E03.9 Hypothyroidism, unspecified; F32.A Depression, unspecified; I10 Essential (primary) hypertension; D64.9 Anemia, unspecified; D69.6 Thrombocytopenia, unspecified; K21.9 Gastro-esophageal reflux disease without esophagitis; F41.9 Anxiety disorder, unspecified; I49.9 Cardiac arrhythmia, unspecified; Z66 Do not resuscitate; Z79.899 Other long term (current) drug therapy; Z79.52 Long term (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 systemic steroids; R74.01 Elevation of levels of liver transaminase levels; R53.81 Other malaise; Z85.3 Personal history of malignant neoplasm of breast; Z85.828 Personal history of other malignant neoplasm of skin; Z90.10 Acquired absence of unspecified breast and nipple; R10.9 Unspecified abdominal pain; R74.02 Elevation of levels of lactic acid dehydrogenase [LDH]; Z79.890 Hormone replacement therapy; R32 Unspecified urinary incontinence
CPT/HCPCS: 36415; 49083; 74177; 74183; 80053; 80061; 81001; 82150; 82306; 82945; 83605; 83615; 83690; 84157; 85025; 85027; 85610; 85730; 87040; 88108; 88305; 88313; 89050; 97162; 97166; 99285; A9575; Q9967; A4216; J2405

== ENCOUNTER 2025-03-03 11:40 | Inpatient (IN) | payer MEDICARE, BC, SELFPAY ==
[2025-03-03] VITALS (17 sets, daily range): BP systolic 126–159; BP diastolic 62–86; PULSE 109–170; RESP 16–30; TEMP 36.4–37.1; O2SAT 94–98; BMI 32.3; BMI 31.6
--- NOTE | 2025-03-03 11:52 | EKG12_ITS ---
Test Reason : Blood Pressure : */* mmHG Vent. Rate : 138 BPM Atrial Rate : * BPM P-R Int : * ms QRS Dur : 110 ms QT Int : 334 ms P-R-T Axes : * -33 25 degrees QTcB Int : 506 ms Atrial fibrillation with rapid ventricular response with premature ventricular or aberrantly conducted complexes Left axis deviation Incomplete right bundle branch block Abnormal ECG Confirmed by Loyd Qureshi ([id number]), sports editor GAYE KENDRICK ([id number]) on 03/04/2025 10:31:19 AM Referred By: Confirmed By: Loyd Qureshi
[2025-03-03] MEDS: 0.9% Normal Saline (500mL Bag) 500 ML 999 ML IV (12:24)
[2025-03-03 12:41] LABS: Hematocrit 27.1 % (37-47); Hemoglobin 9.1 g/dL (12.0-15.0); Immature Granulocytes Count 0.170 X10^3/uL (0.0-0.0); Mean Corp Hgb Conc 33.6 g/dL (32-36); Mean Corpuscular Volume 106.3 fL (81-99); Mean Platelet Vol. 9.9 fl (6.2-12.0); NRBC Flagged by Analyzer 0.2 % (0-5); POSITIVE DIFFERENTIAL YES; Platelet Count 168 K/mm3 (150-450); RBC Distribution Width CV 15.5 % (11.6-14.6); RBC Distribution Width SD 58.9 fl (35.1-43.9); Red Blood Count 2.55 M/mm3 (4.2-5.4); White Blood Count 11.0 K/mm3 (4.4-11.0)
[2025-03-03 12:44] LABS: Differential Indicated SCAN CRITERIA MET
[2025-03-03 12:50] LABS: Prothrombin Time (Protime)PT. 15.9 SECONDS (11.7-14.9)
[2025-03-03 12:51] LABS: Partial Thromboplast Time 30.0 Seconds (24.1-36.2)
[2025-03-03 13:05] LABS: AST(SGOT) 99 U/L (<=31); Alanine Aminotransfer ALT/SGPT 225 U/L (<=34); Albumin, Serum 3.0 g/dL (3.4-4.8); Alkaline Phosphatase 75 U/L (35-104); Anion Gap 12 (5-15); BUN 17 mg/dL (4-19); BUN/Creat Ratio 21.7 RATIO (10-20); Calcium,Total 8.8 mg/dL (7.6-11.0); Carbon Dioxide 20.5 mmol/L (21.0-32.0); Chloride 107 mmol/L (98-108); Estimated Creatinine Clearance 51.43 ml/min (50-250); Globulin 3.0 g/dL (2.2-4.2); Glucose 117 mg/dL (70-99); Potassium 3.7 mmol/L (3.3-5.1); Pro- Brain NATRIURETIC PEPTIDE 2655 pg/mL (<=1800)
[2025-03-03 13:10] LABS: Mucous, Urine 0 SEEN /hpf (<or=2+)
--- NOTE | 2025-03-03 13:10 | RAD_ITS ---
PROCEDURE: CHEST PA AND LATERAL 03/03/2025 REASON FOR EXAM: SOB. Patient was here yesterday for paracentesis. Recent cancer diagnosis. TECHNIQUE: Procedure Code: RADCXR Modality: DX Procedure: CHEST PA AND LATERAL COMPARISON: 10/18/2021 FINDINGS: LINES: Right chest port tip terminating in the mid SVC. LUNGS AND PLEURA: Small opacity in the left lung base. No pleural effusion or pneumothorax. HEART AND MEDIASTINUM: The cardiac silhouette is mildly enlarged. The mediastinal contour is normal. BONES: No acute osseous abnormality. Degenerative changes of the spine and left shoulder. OTHER: Mild right hemidiaphragm elevation, new since the prior study. Axillary surgical clips bilaterally. RAD/Chest PA and Lateral IMPRESSION: Small left basilar opacity, possibly atelectasis or infiltrate. Reading Location: [id number]
[2025-03-03 13:13] LABS: Color, Urine Yellow (Yellow); Glucose, Dipstick Normal (Normal); Ketone-Dipstick Negative (Negative); Leukocyte Esterase-Dipstick 500 /ul (Negative); Nitrite-Dipstick Negative (Negative); Occult Blood-Urine 50 /ul (Negative); Protein-Dipstick 30 mg/dl (Negative); Specific Gravity, Urine 1.010 (1.002-1.030); Urine Bilirubin Dipstick Negative (Negative)
[2025-03-03 13:24] LABS: Differential Comment SCANNED
[2025-03-03 13:29] LABS: Red Blood Cells-Urine 10-25 SEEN /hpf (0-5)
[2025-03-03 13:30] LABS: Squamous Epithelial Cells - UA 0-5 SEEN /hpf (5-10)
[2025-03-03] MEDS: Ceftriaxone 2 GM in 0.9% Normal Saline (50mL MB+) 50 ML IV (14:07)
--- NOTE | 2025-03-03 15:01 | EDS_ITS ---
HPI History of Present Illness Chief Complaint: General Illness Narrative Narrative: Patient is a 89-year-old female with a past medical history of rheumatoid arthritis, cirrhosis, migraine headache, IBS, atrial fibrillation who presented to the emergency department with a chief complaint of shortness of breath, lower extremity swelling. Patient states that she recently had a paracentesis performed here in the hospital was ultimately sent back. The nurse practitioner from the facility called me and notified me that the patient was just discharged and she is having conversational dyspnea as well as worsening abdominal distention and pain. Per family member at bedside they are debating on placing on hospice however they are hoping for a another paracentesis plus a pigtail catheter for draining her ascites at the facility. [facility] Medical History Loss of hearing Wears glasses Hx of squamous cell carcinoma Cancer Depression Open wound History of steroid therapy Thyroid disease Rheumatoid arthritis Bladder disease Cirrhosis Anemia Restless legs Back pain Migraine headache Injury of head and neck Syncope History of esophageal varices with bleeding History of IBS History of diverticulitis Gastric reflux Non-smoker BiPAP (biphasic positive airway pressure) dependence Leg cramps History of pain when walking History of edema History of echocardiogram History of stress test Cardiology follow-up encounter History of rheumatic fever History of atrial fibrillation Breast CA Home Medications ?Medication ?Instructions ?Recorded ?Last Taken ?Type diclofenac sodium 1 % topical gel 4 g topical 4X/DAY P RN Pain 03/26/18 Unknown History (Voltaren) polyethylene glycol 3350 17 gram 17 g PO QDAY PRN cons tipation 08/13/24 Unknown History oral powder packet carboxymethylcellulose sodium 1 % 1 drp ophthalmic (ey e) 4-6XD PRN 09/07/24 Unknown History eye drops (Artificial Tears dry eye(s) (carboxymethylcellulose)) cetirizine 10 mg tablet 10 mg PO QDAY 09/07/24 Unkno wn History copper gluconate 2 mg capsule 2 mg PO QDAY 09/07/24 Un known History denosumab 60 mg/mL subcutaneous 60 mg subcut [id number] 09/07/24 Unknown History syringe (Prolia) escitalopram oxalate 10 mg tablet 10 mg PO QDAY Unknown History ferrous gluconate 324 mg (37.5 mg 324 mg PO QDAY 09/07 Unknown History iron) tablet fluticasone propionate 50 2 spray intranasal QDAY 08/16 07/09 Unknown History mcg/actuation nasal spray,suspension (Flonase Allergy Relief) furosemide 20 mg tablet (Lasix) 20 mg PO Q OTHER DAY 0 09/07/24 Unknown History levothyroxine 25 mcg capsule 25 mcg PO QDAY 09/07/24 U nknown History methenamine hippurate 1 gram tablet 1 g PO BID 5 Unknown History metoprolol succinate 25 mg 25 mg PO QDAY 09/07/24 Unkn own History tablet,extended release 24 hr omeprazole 40 mg capsule,delayed 40 mg PO QDAY 5 Unknown History release ascorbate calcium (vitamin C) 500 500 mg PO QDAY 09/24 Unknown History mg tablet estradiol 0.01% (0.1 mg/gram) 1 appful vaginal Q3D 11/08 Unknown History vaginal cream gabapentin 100 mg capsule 200 mg PO QHS 01/11/25 Unkno wn History guaifenesin 100 mg/5 mL oral liquid 200 mg PO Q4H PRN congestion 01/11/25 Unknown History psyllium husk 0.4 gram capsule 0.4 g PO DAILY bowels 1 Unknown History (Metamucil) cholecalciferol (vitamin D3) 25 25 mcg PO DAILY Unknown History mcg (1,000 unit) capsule (Vitamin D3) ketotifen fumarate 0.025 % (0.035 1 drp EACH EYE BID P pediatric ophthalmologist 02/28/25 Unknown History %) eye drops ([place]) symptoms modafinil 100 mg tablet 100 mg PO SUWEFR somnolence 02/28/25 Unknown History prednisone 5 mg tablet 15 mg PO DAILY 02/28/25 Unkn own History tramadol 50 mg tablet 50 mg PO Q6H PRN pain Unknown History acetaminophen 325 mg tablet 650 mg (2 x 325 mg) PO Q6H PRN 03/02/25 Unknown Rx (Tylenol) fever or pain #30 tabs Allergy/AdvReac Type Severity Reaction Status Date / Time DESMOND Inhibitors Allergy Unknown Verified 03/03/25 11:48 adhesive Allergy Unknown Verified 03/03/25 11:48 cyclobenzaprine HCl (From Allergy Unknown Verified 03/03/25 11:48 Flexeril) diclofenac sodium (From Allergy Unknown Verified 03/03/25 11:48 Arthrotec) hydrochlorothiazide Allergy Unknown Verified 03/03/25 11:48 lisinopril (From Zestril) Allergy Unknown Verified 03/03/25 11:48 metronidazole (From Flagyl) Allergy Unknown Verified 03/03/25 11:48 misoprostol (From Arthrotec) Allergy Unknown Verified 03/03/25 11:48 naproxen Allergy Unknown Verified 03/03/25 11:48 paroxetine HCl (From Paxil) Allergy Unknown Verified 03/03/25 11:48 prednisolone acetate (From Allergy Unknown Verified 03/03/25 11:48 Blephamide) sulfacetamide sodium (From Allergy Unknown Verified 03/03/25 11:48 Blephamide) Surgical History History of esophagogastroduodenoscopy (EGD) Hx of colonoscopy Hx of resection of small bowel Hx of oophorectomy Hx of tonsillectomy Hx of mastectomy H/O mastectomy Social History Smoking Status: Never smoker ROS ROS ED ROS Narrative Constitutional: Denies any fevers, chills, headaches Cardiovascular: Denies chest pain Respiratory: Complains of shortness of breath Abdomen: Complains of abdominal distention : Denies urinary symptoms Neurological: Denies any numbness, weakness, tingling Musculoskeletal: Denies back pain Skin: Denies rashes or lesions EXAM Physical Exam Narrative Exam Narrative: General: Patient was lying in bed rest comfortably did not appear to be in acute distress Head: Atraumatic, normocephalic Eyes: PERRL bilaterally, EOMI bilaterally, no conjunctival injection noted Neck: Soft, supple, trachea midline Cardiovascular: Patient is tachycardic with a regular rhythm Respiratory: Clear to auscultation bilaterally Abdomen: Soft, distended, no rebound or guarding on exam Extremities: +4/5 strength noted in the bilateral upper and lower extremities Neurological: Patient following commands knew that she was at [facility] the year is 2024 Skin: Warm, dry, intact no rashes or lesions noted Const Vital Signs: 03/03/25 11:42 03/03/25 12:18 03/03/25 12:19 Temperature 98.3 F Temperature Source Oral Pulse Rate 118 H Respiratory Rate 30 H Respiratory Effort Short of Breath Respiratory Pattern Tachypnea Blood Pressure 142/84 H Blood Pressure Mean 103 Pulse Ox 97 98 Oxygen Delivery Method Room Air Room Air 03/03/25 13:56 Temperature Temperature Source Pulse Rate 109 H Respiratory Rate 23 H Respiratory Effort Respiratory Pattern Blood Pressure 158/70 H Blood Pressure Mean 99 Pulse Ox 95 Oxygen Delivery Method Room Air MDM MDM MDM Narrative Medical decision making narrative: Patient is a 89-year-old female who presented to the emergency department with a chief complaint of conversational dyspnea, worsening abdominal distention concern for need of paracentesis. On the differential diagnose includes but not limited to UTI, CHF, pneumonia. Once workup is obtained reviewed she will be reevaluated. Patient will not be given a 30 cc/kg bolus of IV fluids as a concern for hypovolemic state therefore 1 L of IV fluids were ordered at 11:52 AM. Patient CBC reviewed showed no evidence leukocytosis white blood count normal 11, hemoglobin 9.1, plate count of 168. Patient's INR normal 1.2, PT of 15.9. Patient sodium was 139, potassium 3.7, creatinine was 0.79. Patient lactic acid elevated 3.2, AST and ALT were 99 and 225 however this is improved from her previous blood drawl AST of 382 and ALT of 444. Patient's proBNP was 2655. Patient's urinalysis was reviewed showed evidence of urinary tract infection with 500 leukocyte esterase 25-50 white cells with 1+ bacteria she was given Rocephin which was ordered at 1352. Patient's EKG reviewed showed atrial fibrillation with a rapid ventricular response of 130 bpm. At 12:40 PM patient had reperfusion assessment performed and remains hypertensive therefore no vasopressors indicated. Patient heart rate has improved therefore we will continue to treat underlying cause before treating with any rate control medications. At this point time we will discuss case with hospitalist for admission. Discussed case with hospitalist Dr. Lockhart who accept patient for admission. Patient notified as well as family at bedside all question concerns answered. Patient was admitted around 3:20 PM Lab Data Labs: Laboratory Results - last 24 hr 03/03/25 03/03/25 12:26 13:03 WBC 11.0 RBC 2.55 L Hgb 9.1 L Hct 27.1 L MCV 106.3 H MCH 35.7 H MCHC 33.6 RDW Std Deviation 58.9 H RDW Coeff of Laureen 15.5 H Plt Count 168 MPV 9.9 Immature Gran % (Auto) 1.500 H Neut % (Auto) 72.4 H Lymph % (Auto) 8.9 L [place] % (Auto) 15.5 H Eos % (Auto) 1.2 Baso % (Auto) 0.5 Absolute Neuts (auto) 7.9 H Absolute Lymphs (auto) 0.98 Nucleated RBC % 0.2 Differential Comment SCANNED PT 15.9 H INR 1.2 APTT 30.0 Sodium 139 Potassium 3.7 Chloride 107 Carbon Dioxide 20.5 L Anion Gap 12 BUN 17 Creatinine 0.79 Estim Creat Clear Calc 51.43 Est GFR (MDRD) Non-Af 72 BUN/Creatinine Ratio 21.7 H Glucose 117 H Lactic Acid 3.2 H* Calcium 8.8 Total Bilirubin 1.54 H AST 99 H ALT 225 H Alkaline Phosphatase 75 NT pro BNP II 2655 H Total Protein 6.0 Albumin 3.0 L Globulin 3.0 Albumin/Globulin Ratio 1.0 Urine Color Yellow Urine Clarity Sl. Cloudy Urine pH 6.5 Ur Specific [place] 1.010 Urine Protein 30 H Urine Glucose (UA) Normal Urine Ketones Negative Urine Occult Blood 50 H Urine Nitrite Negative Urine Bilirubin Negative Urine Urobilinogen 4 H Ur Leukocyte Esterase 500 H Urine RBC 10-25 SEEN Urine WBC 25-50 SEEN Ur Squamous Epith Cells 0-5 SEEN Urine Bacteria 1+ Urine Mucus 0 SEEN Radiography Diagnostic Testing: Clinical Impression(s) from Imaging Studies Chest X-Ray 03/03/25 13:10 IMPRESSION: Small left basilar opacity, possibly atelectasis or infiltrate. Reading Location: [id number] Discharge Plan Dx/Rx/DC Orders Clinical Impression: Urinary tract infection, Atrial fibrillation with rapid ventricular response, Cirrhosis Disposition Disposition: Acute Care Hospital [facility]
--- NOTE | 2025-03-03 15:30 | CT_ITS ---
PROCEDURE: ABDOMEN/PELVIS W IV CONT ONLY 03/03/2025 REASON FOR EXAM: ABD DISTENSION TECHNIQUE: Procedure Code: [id number] Modality: CT Procedure: ABDOMEN/PELVIS W IV CONT ONLY Coronal and Sagittal reconstruction series were provided. CONTRAST: [id number] VOLUME: 82 mL One or more dose reduction techniques were used (e.g., Automated exposure control, adjustment of the mA and/or kV according to patient size, use of iterative reconstruction technique. RADIATION DOSE SUMMARY: CTDlvol: 6+ 19 mGy DLP: 1083 mGycm COMPARISON: 02/28/2025 CTA and MRI. FINDINGS: Mild dependent atelectasis. Small fat containing umbilical hernia. Degenerative changes of the spine. Osseous demineralization. Moderate atherosclerosis. Normal caliber abdominal aorta. Small volume ascites. No free air. Nodular hepatic surface contour suspicious for cirrhosis. Segment 6 lesion previously characterized as a likely hepatocellular carcinoma on the recent MRI. Cholelithiasis. Unchanged small calcific density in the pancreatic head. The spleen, adrenals unremarkable. Symmetric enhancement of the bilateral kidneys. A [place] catheter is present with flecks of air within the urinary bladder which can be normal status post instrumentation. Anteverted uterus. Sigmoid colon anastomotic suture. Normal caliber large and small bowel. Scattered colonic diverticuli without focal surrounding inflammatory changes. Dilated portal vein compatible with portal hypertension. Upper abdominal varices. CT/Abdomen/Pelvis W IV Cont ONLY IMPRESSION: Findings of cirrhosis with portal hypertension, including nodular hepatic conto ur, dilated portal vein, upper abdominal varices, and small volume ascites. Previously characterized segment 6 hepatic lesion suspicious for hepatocellular carcinoma on recent MRI. Cholelithiasis. No evidence of bowel obstruction or free air. Metz catheter in place with intravesical air compatible with recent instrument ation. Reading [facility]
[2025-03-03] MEDS: Lactated Ringers 1,000 ML 125 ML IV (16:17)
--- NOTE | 2025-03-03 16:32 | HP.PCM.HOS_ITS ---
HPI - General General Date of Admission: 03/03/25 Date of Service: 03/03/25 Chief Complaint: Abd distention and difficulty urinating HPI Narrative CHRISTIAN CARDENAS, is a 89-year-old female history of rheumatoid arthritis, hypothyroidism, who presented to [facility] ED 03/03/2025 with shortness of breath and lower extremity swelling. Reportedly recently had paracentesis here in the hospital was ultimately sent back. Nurse practitioner from the facility she went to call the ED and said she was just discharged but is having conversational dyspnea as well as worsening abdominal distention and pain. Family are considering hospice for the patient but they would like another paracentesis and pigtail catheter for draining ascites at facility. In the ED temp 98.3, heart rate 118, respiratory rate 30, blood pressure 142/84, pulse ox 97% on room air. White count 11, hemoglobin 9.1. Bicarb 20.5, gap 12 with BUN of 17 and creatinine 0.79. Lactic 3.2 with a total bili 1.54, AST 99, ALT 225 and proBNP 2655. Urine with leuk esterase, white cells and bacteria. Chest x-ray with small left basilar opacity which could be atelectasis or infiltrate. Hospitalist contacted for admission. Pt evaluated w/ family at bedside. Patient reports she was having some difficulty urinating this morning, did have a normal bowel movement, but is also noted some increased abdominal distention since this a.m. with some vague discomfort. Possibly some shortness of breath with exertion. Denies any fever or chest pain. Not presently feeling nauseous. Would like some water. No other new or acute complaints. [facility] Medical History Loss of hearing Wears glasses Hx of squamous cell carcinoma Cancer Depression Open wound History of steroid therapy Thyroid disease Rheumatoid arthritis Bladder disease Cirrhosis Anemia Restless legs Back pain Migraine headache Injury of head and neck Syncope History of esophageal varices with bleeding History of IBS History of diverticulitis Gastric reflux Non-smoker BiPAP (biphasic positive airway pressure) dependence Leg cramps History of pain when walking History of edema History of echocardiogram History of stress test Cardiology follow-up encounter History of rheumatic fever History of atrial fibrillation Breast CA Home Medications ?Medication ?Instructions ?Recorded ?Last Taken ?Type diclofenac sodium 1 % topical gel 4 g topical 4X/DAY P RN Pain 03/26/18 Unknown History (Voltaren) polyethylene glycol 3350 17 gram 17 g PO QDAY PRN cons tipation 08/13/24 Unknown History oral powder packet carboxymethylcellulose sodium 1 % 1 drp ophthalmic (ey e) 4-6XD PRN 09/07/24 Unknown History eye drops (Artificial Tears dry eye(s) (carboxymethylcellulose)) cetirizine 10 mg tablet 10 mg PO QDAY 09/07/24 Unkno wn History copper gluconate 2 mg capsule 2 mg PO QDAY 09/07/24 Un known History denosumab 60 mg/mL subcutaneous 60 mg subcut [id number] 09/07/24 Unknown History syringe (Prolia) escitalopram oxalate 10 mg tablet 10 mg PO QDAY Unknown History ferrous gluconate 324 mg (37.5 mg 324 mg PO QDAY 09/07 Unknown History iron) tablet fluticasone propionate 50 2 spray intranasal QDAY 08/16 07/09 Unknown History mcg/actuation nasal spray,suspension (Flonase Allergy Relief) furosemide 20 mg tablet (Lasix) 20 mg PO Q OTHER DAY 0 09/07/24 Unknown History levothyroxine 25 mcg capsule 25 mcg PO QDAY 09/07/24 U nknown History methenamine hippurate 1 gram tablet 1 g PO BID 5 Unknown History metoprolol succinate 25 mg 25 mg PO QDAY 09/07/24 Unkn own History tablet,extended release 24 hr omeprazole 40 mg capsule,delayed 40 mg PO QDAY 5 Unknown History release ascorbate calcium (vitamin C) 500 500 mg PO QDAY 09/24 Unknown History mg tablet estradiol 0.01% (0.1 mg/gram) 1 appful vaginal Q3D 11/08 Unknown History vaginal cream gabapentin 100 mg capsule 200 mg PO QHS 01/11/25 Unkno wn History guaifenesin 100 mg/5 mL oral liquid 200 mg PO Q4H PRN congestion 01/11/25 Unknown History psyllium husk 0.4 gram capsule 0.4 g PO DAILY bowels 1 Unknown History (Metamucil) cholecalciferol (vitamin D3) 25 25 mcg PO DAILY Unknown History mcg (1,000 unit) capsule (Vitamin D3) ketotifen fumarate 0.025 % (0.035 1 drp EACH EYE BID P licensed mental health professional 02/28/25 Unknown History %) eye drops ([place]) symptoms modafinil 100 mg tablet 100 mg PO SUWEFR somnolence 02/28/25 Unknown History prednisone 5 mg tablet 15 mg PO DAILY 02/28/25 Unkn own History tramadol 50 mg tablet 50 mg PO Q6H PRN pain Unknown History acetaminophen 325 mg tablet 650 mg (2 x 325 mg) PO Q6H PRN 03/02/25 Unknown Rx (Tylenol) fever or pain #30 tabs Allergy/AdvReac Type Severity Reaction Status Date / Time DESMOND Inhibitors Allergy Unknown Verified 03/03/25 11:48 adhesive Allergy Unknown Verified 03/03/25 11:48 cyclobenzaprine HCl (From Allergy Unknown Verified 03/03/25 11:48 Flexeril) diclofenac sodium (From Allergy Unknown Verified 03/03/25 11:48 Arthrotec) hydrochlorothiazide Allergy Unknown Verified 03/03/25 11:48 lisinopril (From Zestril) Allergy Unknown Verified 03/03/25 11:48 metronidazole (From Flagyl) Allergy Unknown Verified 03/03/25 11:48 misoprostol (From Arthrotec) Allergy Unknown Verified 03/03/25 11:48 naproxen Allergy Unknown Verified 03/03/25 11:48 paroxetine HCl (From Paxil) Allergy Unknown Verified 03/03/25 11:48 prednisolone acetate (From Allergy Unknown Verified 03/03/25 11:48 Blephamide) sulfacetamide sodium (From Allergy Unknown Verified 03/03/25 11:48 Blephamide) Surgical History History of esophagogastroduodenoscopy (EGD) Hx of colonoscopy Hx of resection of small bowel Hx of oophorectomy Hx of tonsillectomy Hx of mastectomy H/O mastectomy Social History Smoking Status: Never smoker ROS ROS Narrative General: Denies fever/chills HENT: Denies headache, denies stuffy nose, denies sore throat EYES: Denies changes in vision Resp: Denies cough, reports shortness of breath on exertion Cardiac: Denies chest pain GI: Some increase abdominal distention and generalized discomfort, denies changes in bowel, denies nausea/vomiting : Was having difficulty urinating earlier today Extremity: She is unsure if she has had any changes in swelling MSK: Feels somewhat generally weak Neuro: Denies any numbness/tingling Heme: Denies any bleeding or bruising Skin: Denies rashes Psychiatric: No complaints voiced Patient's Goals Of Care . What matters most to you about your health?: Feeling better What would you like to achieve or improve as a result of your hospital stay?: To make it back to [facility] and plan her Vital Signs Vital Signs Vital Signs: 03/03/25 11:42 03/03/25 12:18 03/03/25 12:19 Temperature 98.3 F Temperature Source Oral Pulse Rate 118 H Respiratory Rate 30 H Respiratory Effort Short of Breath Respiratory Pattern Tachypnea Blood Pressure 142/84 H Blood Pressure Mean 103 Pulse Ox 97 98 Oxygen Delivery Method Room Air Room Air 03/03/25 13:56 03/03/25 15:00 03/03/25 15:44 Temperature 98 F Temperature Source Pulse Rate 109 H 133 H 133 H Respiratory Rate 23 H 26 H 26 H Respiratory Effort Respiratory Pattern Blood Pressure 158/70 H 129/62 H 129/62 H Blood Pressure Mean 99 84 84 Pulse Ox 95 94 94 Oxygen Delivery Method Room Air Weight Weight: 85.5 kg Body Mass Index (BMI) 32.3 Physical Exam Narrative General: Alert, answers some questions appropriately, and other times seems little bit confused HEENT: normocephalic Eyes: Anicteric, normal conjunctiva, extraocular movements grossly intact Neck: Supple Respiratory: Clear to auscultation overall but slightly tachypneic Cardiovascular: Intermittent accelerations GI: Protuberant and distended but overall is soft, reports some generalized tenderness without rebound, guarding, rigidity Extremities: Some trace lower extremity edema Musculoskeletal: Moving all extremities Neuro: No overt focal neurological deficits Skin: No rashes appreciated Psych: Cooperative Results Lab / Micro Data 03/03/25 12:26 03/03/25 12:26 Labs: Laboratory Results - last 24 hr 03/03/25 12:26: WBC 11.0, RBC 2.55 L, Hgb 9.1 L, Hct 27.1 L, MCV 106.3 H, MCH 35.7 H, MCHC 33.6, RDW Std Deviation 58.9 H, RDW Coeff of Laureen 15.5 H, Plt Count 168, MPV 9.9, Immature Gran % (Auto) 1.500 H, Neut % (Auto) 72.4 H, Lymph % (Auto) 8.9 L, [place] % (Auto) 15.5 H, Eos % (Auto) 1.2, Baso % (Auto) 0.5, A bsolute Neuts (auto) 7.9 H, Absolute Lymphs (auto) 0.98, Nucleated RBC % 0.2, Differential Comment SCANNED, PT 15.9 H, INR 1.2, APTT 30.0, Sodium 139, Potassium 3.7, Chloride 107, Carbon Dioxide 20.5 L, Anion Gap 12, BUN 17, Creatinine 0.79, Estim Creat Clear Calc 51.43, Est GFR (MDRD) Non-Af 72, B UN/Creatinine Ratio 21.7 H, Glucose 117 H, Lactic Acid 3.2 H*, Calcium 8.8, T otal Bilirubin 1.54 H, AST 99 H, ALT 225 H, Alkaline Phosphatase 75, NT pro BNP II 2655 H, Total Protein 6.0, Albumin 3.0 L, Globulin 3.0, Albumin/Globulin Ratio 1.0 03/03/25 13:03: Urine Color Yellow, Urine Clarity Sl. Cloudy, Urine pH 6.5, Ur Specific [place] 1.010, Urine Protein 30 H, Urine Glucose (UA) Normal, Urine Ketones Negative, Urine Occult Blood 50 H, Urine Nitrite Negative, Urine Bilirubin Negative, Urine Urobilinogen 4 H, Ur Leukocyte Esterase 500 H, Urine RBC 10-25 SEEN, Urine WBC 25-50 SEEN, Ur Squamous Epith Cells 0-5 SEEN, Urine Bacteria 1+, Urine Mucus 0 SEEN Imaging Radiology Impression Chest X-Ray 03/03/25 13:10 IMPRESSION: Small left basilar opacity, possibly atelectasis or infiltrate. Reading Location: [facility] Abdomen/Pelvis CT 03/03/25 15:30 IMPRESSION: Findings of cirrhosis with portal hypertension, including nodular hepatic contour, dilated portal vein, upper abdominal varices, and small volume ascites. Previously characterized segment 6 hepatic lesion suspicious for hepatocellular carcinoma on recent MRI. Cholelithiasis. No evidence of bowel obstruction or free air. Metz catheter in place with intravesical air compatible with recent instrumentation. [facility] Assessment & Plan Assessment/Plan (1) Urinary tract infection: (2) Sepsis: PLAN: Plan #Sepsis 2/2 suspected UTI -Presented tachy w/ HR 118 and tachypneic w/ RR 30, lactic acid 3.2, total bili 1.54, left shift present on CBC and UA suggestive of UTI -Blood and urine culture sent -Chest x-ray does have small left basilar opacity which could be atelectasis or infiltrate, more likely UTI but cannot rule this out as a component, will obtain viral swabs and sputum culture if able -Received 1 unit normal saline in the ED, will start maintenance fluids with a limited timeframe given her elevated proBNP and she does have some peripheral edema, concern that patient could become overloaded, presently blood pressure remained stable -Will place on zosyn given she was just admitted on IV antibiotics so at higher risk for resistant organisms - Will hold methenamine during acute UTI, can resume after antibiotic completion # Recurrent abdominal ascites -Suspected to be due to malignancy -Had paracentesis 03/01/2025 with 830 mL out -Will order for repeat therapeutic paracentesis -May ultimately benefit from drain for palliative purposes #Afib w/ intermittent elevations in rate - Continue home metoprolol, patient will go up to 160s but this is fairly brief and self-limited, does appear to be A-fib but otherwise is sinus rhythm - Patient previously taken off of anticoagulation, patient be monitored on telemetry # Suspected hepatocellular carcinoma -Lesion on recent CT scan concerning for malignancy with an abdominal MRI highly concerning for HCC -Patient [facility] admission but ultimately chose to go with palliative care and wanted to see Dr. Bonilla as an outpatient as she had seen him before that was leaning towards no aggressive treatment #Hypothyroidism -Continue Synthroid # History of RA -Continue home medications at this time #GERD -Continue PPI #Depression/anxiety -Continue home medications #DVT ppx: SCDs Candida Lockhart MD Charges/Coding Visit Charges Inpatient E&M: 22545 Init Hosp L2
[2025-03-03 16:33] LABS: Reflex Lactate? Y
[2025-03-03 18:14] LABS: Magnesium 1.9 mg/dL (1.5-2.2)
[2025-03-03] MEDS: 0.9% Normal Saline (250mL Bag) 250 ML 15 ML IV (18:52)
[2025-03-03] MEDS: Piperacil/Tazobactam 3.375 GM in 0.9% Normal Saline (50mL MB+) 50 ML IV (18:53)
[2025-03-03] MEDS: Metoprolol(XL)Succ 25 MG Tablet PO (19:01)
[2025-03-03] MEDS: 0.9% Normal Saline (1000mL) 1,000 ML 50 ML IV (20:32)
[2025-03-04] VITALS (9 sets, daily range): BP systolic 102–112; BP diastolic 52–58; PULSE 91–119; RESP 14–21; TEMP 36.6–37.2; O2SAT 93–95; BMI 31.4
[2025-03-04] MEDS: Piperacil/Tazobactam 3.375 GM in 0.9% Normal Saline (50mL MB+) 50 ML IV ×2 (06:00→13:44)
[2025-03-04 07:54] LABS: Hematocrit 25.2 % (37-47); Hemoglobin 8.4 g/dL (12.0-15.0); Immature Granulocytes Count 0.140 X10^3/uL (0.0-0.0); Mean Corp Hgb Conc 33.3 g/dL (32-36); Mean Corpuscular Volume 106.3 fL (81-99); Mean Platelet Vol. 9.9 fl (6.2-12.0); NRBC Flagged by Analyzer 0.2 % (0-5); Platelet Count 150 K/mm3 (150-450); RBC Distribution Width CV 15.9 % (11.6-14.6); RBC Distribution Width SD 60.0 fl (35.1-43.9); Red Blood Count 2.37 M/mm3 (4.2-5.4); White Blood Count 9.2 K/mm3 (4.4-11.0)
[2025-03-04 08:05] LABS: AST(SGOT) 60 U/L (<=31); Alanine Aminotransfer ALT/SGPT 156 U/L (<=34); Albumin, Serum 2.6 g/dL (3.4-4.8); Alkaline Phosphatase 63 U/L (35-104); Anion Gap 8 (5-15); BUN 17 mg/dL (4-19); BUN/Creat Ratio 20.0 RATIO (10-20); Calcium,Total 8.1 mg/dL (7.6-11.0); Carbon Dioxide 22.6 mmol/L (21.0-32.0); Chloride 105 mmol/L (98-108); Estimated Creatinine Clearance 48.25 ml/min (50-250); Globulin 2.8 g/dL (2.2-4.2); Glucose 86 mg/dL (70-99); Potassium 4.3 mmol/L (3.3-5.1)
--- NOTE | 2025-03-04 10:00 | US_ITS ---
PROCEDURE: ABDOMEN LIMITED 03/04/2025 REASON FOR EXAM: INCREASED ABD DISTENTION AND DISCOMFORT TECHNIQUE: Procedure Code: USABDL Modality: US Procedure: 4 quadrant abdominal ultrasound for ascites evaluation.. FINDINGS: The patient presented to our department for paracentesis, presumably due to suspected reaccumulation ascitic fluid. Only a small amount of ascitic fluid was present, upon 4 quadrant evaluation, and a paracentesis was deferred. US/Abdomen Limited IMPRESSION: Small amount of ascitic fluid present, with deferral of the planned paracentesi s. Reading Location: [place] [id number]
[2025-03-04] MEDS: Metoprolol(XL)Succ 25 MG Tablet PO (10:04)
[2025-03-04] MEDS: 0.9% Saline Lock 10 ML Syringe IV ×3 (10:08→15:04)
--- NOTE | 2025-03-04 10:17 | CASEMGMT ---
Social Work Pt currently lives in the assisted living at [facility]. Pt was hospitalized 02/28-03/02. During this hospitalization, pt met with [facility] for new liver cancer diagnosis. At that time, pt stated she was not ready for hospice and elected palliative care. Pt returned to [facility] on 03/02. Pt readmitted to [facility] 03/03. SW attended ICU rounds. Physician states pt and family are requesting to meet with hospice again. SW met with pt and introduced self and role of SW. Pt confirms she lives at [facility] and would like to return there, but is realistic that this may not be possible. SW spoke with pt regarding goals moving forward and pt does states that she and dgts would like to talk to hospice again. Pt then discussed going to the [facility] at [facility] for rehab. SW explained that pt can choose rehab or hospice but not both at the same time. Pt expressing understanding. Pt agreeable for hospice consult and for SW to reach out to dgt Eloisa. Phone call to pt's dgt Eloisa to discuss discharge plan. Eloisa stating that she would like to speak with hospice again. Eloisa has spoke with the nurse manager cath lab of the assisted living who has informed her that pt's care exceeds what the AL can manage. Eloisa also spoke about the TCC skilled at [facility] and SW explained the choice between rehab or hospice. Eloisa feels pt would be better served with hospice care. NELSON explained that SW will follow up with [facility] to see if they can accommodate pt in the controls operator [facility] care nursing section of the facility as pt and family preference is to stay within [facility] if at all possible. Per Eloisa, pt does have Medicaid benefit to cover the cost of LTC. Phone call to [facility] and referral made. Hospice to reach out to Eloisa to make an appointment. Referral sent to [facility] via [facility] requesting consideration for LTC in the nursing section of the facility. SW will await determination of acceptance. PLAN: Hospice Consult, appointment time pending. Referral to [facility] for [facility] placement REA De Paz
--- NOTE | 2025-03-04 12:42 | CASEMGMT ---
Social Work Phone call placed to [facility] to inquire about referral. SW informed visit is scheduled today at 1230. Physician updated. REA De Paz
--- NOTE | 2025-03-04 13:24 | PCM.PROGNOTE ---
Subjective Subjective Patient seen and examined. SHe had no active complaints. She was recently discharged after being admitted and managed for ascites due to newly diagnosed hepatocellular carcinoma. She had refused hospice during that admission and instead opted for palliative care. She had paracentesis during the previous admission with removal of a 30 cc of fluid and had opted to follow-up with her oncologist on outpatient basis. Her appointment had been set for March 23, 2025. However patient went home and started having abdominal distention and felt weak so she came back to the ED. She has no active complaints today. She is for paracentesis today and wants a permanent catheter inserted for constant drainage of the ascites. She is also meeting with hospice today. Review of systems otherwise negative. She has remained hemodynamically stable. Objective Data Objective Data Vital Signs: Vital Signs Temp Pulse Resp BP Pulse Ox O2 Del Method 98.7 F 108 H 19 H 107/52 L 95 Room Air 03/04/25 11:53 03/04/25 11:53 03/04/25 11:53 03/04/25 11:53 03/04/25 11:53 03/04/25 11:56 Oxygen Delivery Method Room Air Weight: 182 lb 15.739 oz Body Mass Index (BMI) 31.4 Intake & Output: Intake and Output for Last 24 Hours 03/02/25 03/03/25 03/04/25 23:59 23:59 23:59 Intake Total 1285.00 / 1285.00 290 / 290 Output Total 2150 / 2150 650 / 650 Balance -865.00 / -865.00 -360 / -360 Lab / Micro Data 03/04/25 07:22 03/04/25 07:22 Labs: Laboratory Results - last 24 hr 03/03/25 12:26: Differential Comment SCANNED, Magnesium 1.9 03/03/25 13:03: Urine RBC 10-25 SEEN, Urine WBC 25-50 SEEN, Ur Squamous Epith Cells 0-5 SEEN, Urine Bacteria 1+, Urine Mucus 0 SEEN 03/03/25 16:49: Lactic Acid 2.0 03/04/25 07:22: WBC 9.2, RBC 2.37 L, Hgb 8.4 L, Hct 25.2 L, MCV 106.3 H, MCH 35.4 H, MCHC 33.3, RDW Std Deviation 60.0 H, RDW Coeff of Laureen 15.9 H, Plt Count 150, MPV 9.9, Immature Gran % (Auto) 1.500 H, Neut % (Auto) 68.9, Lymph % (Auto) 11.9 L, [place] % (Auto) 15.3 H, Eos % (Auto) 2.0, Baso % (Auto) 0.4, Absolute Neuts (auto) 6.4, Absolute Lymphs (auto) 1.10, Nucleated RBC % 0.2, Sodium 135, Potassium 4.3, Chloride 105, Carbon Dioxide 22.6, Anion Gap 8, BUN 17, Creatinine 0.84, Estim Creat Clear Calc 48.25 L, Est GFR (MDRD) Non-Af 67, BUN/Creatinine Ratio 20.0, Glucose 86, Calcium 8.1, Total Bilirubin 1.29, AST 60 H, ALT 156 H, Alkaline Phosphatase 63, Total Protein 5.4 L, Albumin 2.6 L, Globulin 2.8, Albumin/Globulin Ratio 0.9 Micro: Microbiology 03/03/25 13:03 Urine Catheter - Metz Urine Culture - Preliminary GNR lactose sql etl developer GNR Poss Pseudomonas sp 03/03/25 12:59 Blood Culture (Wb) - Port Blood Culture - Preliminary No growth in 48 hours. 03/03/25 12:26 Blood Culture (Wb) - Port Blood Culture - Preliminary No growth in 48 hours. 03/03/25 17:45 Mucosa - Nose Coronavirus COVID-19 PCR - Final 03/03/25 17:45 Mucosa - Nose Respiratory Panel (PCR) - Final Radiography Diagnostic Testing: Radiology Impression Chest X-Ray 03/03/25 13:10 IMPRESSION: Small left basilar opacity, possibly atelectasis or infiltrate. Reading Location: [facility] Abdomen/Pelvis CT 03/03/25 15:30 IMPRESSION: Findings of cirrhosis with portal hypertension, including nodular hepatic contour, dilated portal vein, upper abdominal varices, and small volume ascites. Previously characterized segment 6 hepatic lesion suspicious for hepatocellular carcinoma on recent MRI. Cholelithiasis. No evidence of bowel obstruction or free air. Metz catheter in place with intravesical air compatible with recent instrumentation. Reading Location: [facility] Abdomen Ultrasound 03/04/25 10:00 IMPRESSION: Small amount of ascitic fluid present, with deferral of the planned paracentesis. Reading Location: [facility] Physical Exam Const alert, oriented x3 and no apparent distress Constitutional Narrative: frail, weak General Appearance: cooperative HEENT normocephalic, head/scalp atraumatic, moist oral mucous membranes and oropharynx normal Eyes EOMs intact bilaterally Neck supple and no JVD Lymph Lymphatic: no lymphedema noted Resp Resp Narrative: mildly diminished breath sounds bibasally, no wheezes or crackles. On room air. Cardio regular rate, regular rhythm, S1 normal heart sound, S2 normal heart sound and no murmurs GI GI Narrative: abdomen moderately distended, positive fluid thrill, nontender to palpation, no organomegaly Extremity normal capillary refill General Extremity: no tenderness to palpation of joints or extremities Skin General Skin Exam: no breakdown Neuro no focal motor deficits and no sensory deficits noted Motor Exam: general weakness Psych thought process normal, cooperative and affect normal Appearance: appropriate Assessment & Plan Assessment/Plan (1) Sepsis: (2) Liver lesion: PLAN: Plan #sepsis due to UTI Admitted with tachycardia and tachypnea. Lactic acid was also elevated. Chest x-ray showed a small left basilar opacity. Placed on IV Zosyn. Hydrated gently with IV fluid. Blood and urine cultures pending. Urine culture growing gram-negative joyce lactose sql etl developer with gram-negative joyce possibly Pseudomonas species #Recurrent abdominal ascites due to presumptive liver cancer. Had paracentesis on 03/01/2025 with removal of 830 cc of fluid. Repeat paracentesis ordered and will benefit from pigtail drain for palliative purposes. 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 She now wants hospice consult again to evaluate her for hospice. Abdominal ultrasound today showed only small amount of ascitic fluid so paracentesis deferred. #A-fib with intermittent RVR: On metoprolol. Heart rate is better controlled now. Was on anticoagulation but now taken off. #Hypothyroidism: On Synthroid\ #Anemia: Hemoglobin is 8.4. Was 9.1 on admission. This is around her baseline. Will monitor. #History of rheumatoid arthritis: Stable. On prednisone and gabapentin. #GERD: On PPI #Depression and anxiety: On escitalopram DVT prophylaxis: SCDs Charges/Coding Visit Charges Inpatient E&M: 39200 Subs Hosp L2
--- NOTE | 2025-03-04 14:26 | DS.PCM_ITS ---
Providers Date of Admission: 03/03/25 Date of Discharge: 03/04/25 Primary Care Physician: Galina Horner, SAVANNAHC Reason For Visit: SEPSIS SECONDARY TO UTI, A-FIB Diagnosis Discharge Diagnosis (1) Sepsis: Status: Acute Code(s): A41.9 - Sepsis, unspecified organism (2) Liver lesion: Status: Acute Code(s): K76.9 - Liver disease, unspecified Plan #sepsis due to UTI * Admitted with tachycardia and tachypnea. Lactic acid was also elevated. * Chest x-ray showed a small left basilar opacity. * Placed on IV Zosyn. Hydrated gently with IV fluid. * Blood and urine cultures pending. 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 * Had paracentesis on 03/01/2025 with removal of 830 cc of fluid. Repeat paracentesis ordered and will benefit from pigtail drain for palliative purposes. 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 She now wants hospice consult again to evaluate her for hospice. * Abdominal ultrasound today showed only small amount of ascitic fluid so paracentesis deferred. * #A-fib with intermittent RVR: On metoprolol. Heart rate is better controlled now. Was on anticoagulation but now taken off. #Hypothyroidism: On Synthroid\ #Anemia: Hemoglobin is 8.4. Was 9.1 on admission. This is around her baseline. Will monitor. #History of rheumatoid arthritis: Stable. On prednisone and gabapentin. #GERD: On PPI #Depression and anxiety: On escitalopram DVT prophylaxis: SCDs Medications at Discharge Home Medications diclofenac sodium 1 % topical gel (Voltaren) 4 g topical 4X/DAY PRN Pain 03/26/18 polyethylene glycol 3350 17 gram oral powder packet 17 g PO QDAY PRN constipation 08/13/24 carboxymethylcellulose sodium 1 % eye drops (Artificial Tears (carboxymethylcellulose)) 1 drp ophthalmic (eye) 4-6XD PRN dry eye(s) 09/07/24 cetirizine 10 mg tablet 10 mg PO QDAY allergies 09/07/24 copper gluconate 2 mg capsule 2 mg PO QDAY vitamin replacement 09/07/24 denosumab 60 mg/mL subcutaneous syringe (Prolia) 60 mg subcut [id number] osteoprosis 09/07/24 escitalopram oxalate 10 mg tablet 10 mg PO QDAY anxiety 09/07/24 ferrous gluconate 324 mg (37.5 mg iron) tablet 324 mg PO QDAY mineral replacement 09/07/24 fluticasone propionate 50 mcg/actuation nasal spray,suspension (Flonase Allergy Relief) 2 spray intranasal QDAY allergies 09/07/24 furosemide 20 mg tablet (Lasix) 20 mg PO Q OTHER DAY fluid retention 09/07/24 levothyroxine 25 mcg capsule 25 mcg PO QDAY hypothyroidism 09/07/24 methenamine hippurate 1 gram tablet 1 g PO BID UTI 09/07/24 metoprolol succinate 25 mg tablet,extended release 24 hr 25 mg PO QDAY rate control and blood pressure 09/07/24 omeprazole 40 mg capsule,delayed release 40 mg PO QDAY GERD 09/07/24 ascorbate calcium (vitamin C) 500 mg tablet 500 mg PO QDAY vitamin replacement 09/24/24 estradiol 0.01% (0.1 mg/gram) vaginal cream 1 appful vaginal Q3D hormone replacement 11/22/24 gabapentin 100 mg capsule 200 mg PO QHS pain 01/11/25 guaifenesin 100 mg/5 mL oral liquid 200 mg PO Q4H PRN congestion 01/11/25 psyllium husk 0.4 gram capsule (Metamucil) 0.4 g PO DAILY bowels 01/11/25 cholecalciferol (vitamin D3) 25 mcg (1,000 unit) capsule (Vitamin D3) 25 mcg PO DAILY vitamin repla 02/28/25 ketotifen fumarate 0.025 % (0.035 %) eye drops (Alaway) 1 drp EACH EYE BID PRN allergy symptoms 02/28/25 modafinil 100 mg tablet 100 mg PO SUWEFR somnolence 02/28/25 prednisone 5 mg tablet 15 mg PO DAILY RA 02/28/25 tramadol 50 mg tablet 50 mg PO Q6H PRN pain 02/28/25 acetaminophen 325 mg tablet (Tylenol) 650 mg (2 x 325 mg) PO Q6H PRN fever or pain #30 tabs 03/02/25 ASV - Adaptive Servo Ventilation ([facility] INFORMATIONAL USE ONLY) central sleep apnea 03/03/25 Hospital Course Operations None Procedures None Summary of Care Provided Minutes Spent on Discharge: 47 Hospital Course: Patient is an 89-year-old female with past medical history as outlined was admitted to the ED on 03/03/2025 with a complaint of abdominal pain and lower extremity swelling as well as shortness of breath. She had recently been admitted and managed for presumptive liver cancer on account of liver mass that the mass was highly suggestive of liver cancer Per CT abdomen. MRI of the abdomen showed a liver mass highly suggestive of liver cancer. She had paracentesis done during the previous admission with removal of a 30 cc of fluid. Hospice evaluated her during that admission but she refused hospice and opted for palliative care. She was discharged to the retirement but came back 2 days later with a complaint of abdominal distention and lower extremity swelling. She was found to also have a UTI and started on antibiotics and was admitted and managed for recurrent ascites in the setting of newly diagnosed liver cancer. She did have an abdominal ultrasound which showed that she did not have enough fluid to drain for the ascites. Patient again requested hospice consult and hospice evaluated her. This time patient opted to go to the inpatient hospice unit and so was discharged to the inpatient hospice unit on 03/04/2025. Patient was seen and examined on the day of discharge. She felt well and had no complaints. She had an uneventful night. Review of systems otherwise negative. Labs and vitals reviewed. Home medication reviewed and reconciled. Physical Exam Const alert, oriented x3 and no apparent distress Constitutional Narrative: frail, weak General Appearance: cooperative and comfortable HEENT normocephalic, head/scalp atraumatic, hearing grossly normal bilaterally, moist oral mucous membranes and oropharynx normal Mouth: oral and palatal mucosa normal Eyes EOMs intact bilaterally Neck supple and no JVD Lymph Lymphatic: no lymphedema noted Resp Resp Narrative: mildly diminished breath sounds bibasally, no wheezes or crackles. On room air. Cardio regular rate, regular rhythm, S1 normal heart sound, S2 normal heart sound and no murmurs GI GI Narrative: abdomen moderately distended, positive fluid thrill, nontender to palpation, no organomegaly Extremity normal capillary refill General Extremity: no tenderness to palpation of joints or extremities Skin General Skin Exam: no breakdown Neuro no focal motor deficits and no sensory deficits noted Motor Exam: general weakness Psych thought process normal, cooperative and affect normal Appearance: appropriate Weight / BMI Weight Weight: 182 lb 15.739 oz Body Mass Index (BMI) 31.4 ABG / Lab / Microbiology Data 03/04/25 07:22 03/04/25 07:22 Laboratory: Laboratory Results - last 24 hr 03/03/25 12:26: Magnesium 1.9 03/03/25 16:49: Lactic Acid 2.0 03/04/25 07:22: WBC 9.2, RBC 2.37 L, Hgb 8.4 L, Hct 25.2 L, MCV 106.3 H, MCH 35.4 H, MCHC 33.3, RDW Std Deviation 60.0 H, RDW Coeff of Laureen 15.9 H, Plt Count 150, MPV 9.9, Immature Gran % (Auto) 1.500 H, Neut % (Auto) 68.9, Lymph % (Auto) 11.9 L, [place] % (Auto) 15.3 H, Eos % (Auto) 2.0, Baso % (Auto) 0.4, Absolute Neuts (auto) 6.4, Absolute Lymphs (auto) 1.10, Nucleated RBC % 0.2, Sodium 135, Potassium 4.3, Chloride 105, Carbon Dioxide 22.6, Anion Gap 8, BUN 17, Creatinine 0.84, Estim Creat Clear Calc 48.25 L, Est GFR (MDRD) Non-Af 67, BUN/Creatinine Ratio 20.0, Glucose 86, Calcium 8.1, Total Bilirubin 1.29, AST 60 H, ALT 156 H, Alkaline Phosphatase 63, Total Protein 5.4 L, Albumin 2.6 L, Globulin 2.8, Albumin/Globulin Ratio 0.9 Microbiology: Microbiology 03/03/25 13:03 Urine Catheter - Metz Urine Culture - Preliminary GNR 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 03/03/25 12:26 Blood Culture (Wb) - Port Blood Culture - Preliminary No growth in 48 hours. 03/03/25 17:45 Mucosa - Nose Coronavirus COVID-19 PCR - Final 03/03/25 17:45 Mucosa - Nose Respiratory Panel (PCR) - Final Radiography Diagnostic Testing: Radiology Impression Abdomen/Pelvis CT 12/18/25 15:30 IMPRESSION: Findings of cirrhosis with portal hypertension, including nodular hepatic contour, dilated portal vein, upper abdominal varices, and small volume ascites. Previously characterized segment 6 hepatic lesion suspicious for hepatocellular carcinoma on recent MRI. Cholelithiasis. No evidence of bowel obstruction or free air. Metz catheter in place with intravesical air compatible with recent instrumentation. [facility] Abdomen Ultrasound 03/04/25 10:00 IMPRESSION: Small amount of ascitic fluid present, with deferral of the planned paracentesis. Reading Location: [facility] D/C Instructions Discharge Activity: Return to Normal Activity DC O2, CPAP, BIPAP Needs Home O2 Discharge instructions: No Patient's Goals Of Care - F/U Goals Reviewed Goals of care reviewed with patient: Yes - Goals changed What matters most to you about your health?: opted for hospice placement What would you like to achieve or improve as a result of your hospital stay?: decided to go to hospice Meaningful Use Info Meaningful Use Meaningful Use Diagnoses (Choose all that apply): None applicable Discharge Plan Admission Admit Date/Time: 03/03/25 16:32 Primary Reason for Your Visit: ascites, hepatocellular carcinoma, UTI Attending Provider: Ragini Hand Primary Care Provider: Galina Horner NP Consulting Providers: Candida Lockhart Instructions Patient Instructions: Cancer of the Liver Discharge Orders/Prescriptions Prescriptions: No Action polyethylene glycol 3350 17 gram powder in packet 17 g PO QDAY PRN (Reason: constipation) escitalopram oxalate 10 mg tablet 10 mg PO QDAY furosemide [Lasix] 20 mg tablet 20 mg PO Q OTHER DAY methenamine hippurate 1 gram tablet 1 g PO BID metoprolol succinate 25 mg tablet extended release 24 hr 25 mg PO QDAY levothyroxine 25 mcg capsule 25 mcg PO QDAY omeprazole 40 mg capsule,delayed release(DR/EC) 40 mg PO QDAY ferrous gluconate 324 mg (37.5 mg iron) tablet 324 mg PO QDAY cetirizine 10 mg tablet 10 mg PO QDAY fluticasone propionate [Flonase Allergy Relief] 50 mcg/actuation spray,suspension 2 spray intranasal QDAY Rx Instructions: administer into each nostril Artificial Tears (cmc) 1 % drops 1 drp ophthalmic (eye) 4-6XD PRN (Reason: dry eye(s)) copper gluconate 2 mg capsule 2 mg PO QDAY Prolia 60 mg/mL syringe 60 mg subcut [id number] ascorbate calcium (vitamin C) 500 mg tablet 500 mg PO QDAY guaifenesin 100 mg/5 mL liquid 200 mg PO Q4H PRN (Reason: congestion) gabapentin 100 mg capsule 200 mg PO QHS Patient Comments: [NO ORIGINAL SIG] psyllium husk [Metamucil] 0.4 gram capsule 0.4 g PO DAILY estradiol 0.01 % (0.1 mg/gram) cream 1 appful vaginal Q3D Rx Instructions: for 14 days diclofenac sodium [Voltaren] 100 GM gel 4 g topical 4X/DAY PRN (Reason: Pain) ASV - Adaptive Servo Ventilation ([facility] INFORMATIONAL USE ONLY) Patient Comments: DME: unknown Settings: Unknown prednisone 5 mg tablet 15 mg PO DAILY ketotifen fumarate [Alaway] 0.025 % (0.035 %) drops 1 drp EACH EYE BID PRN (Reason: allergy symptoms) Rx Instructions: administer at least 8 hours apart cholecalciferol (vitamin D3) [Vitamin D3] 25 mcg (1,000 unit) capsule 25 mcg PO DAILY tramadol 50 mg tablet 50 mg PO Q6H PRN (Reason: pain) modafinil 100 mg tablet 100 mg PO SUWEFR acetaminophen [Tylenol] 325 mg tablet 650 mg PO Q6H PRN (Reason: fever or pain) Qty: 30 2RF Referrals / Follow Up: Galina Horner NP, MATHEMATICAL STATISTICIAN-C [Primary Care Provider, Internal Medicine] - Within 1 Week Disposition Disposition (needs filled in before D/C Order can be placed): Hospice in Medical Facility Charges/Coding Visit Charges Inpatient E&M: 79061 Disch Hosp >30min
--- NOTE | 2025-03-04 14:33 | CASEMGMT ---
Social Work [facility] is able to accept pt into the LTC. NELSON spoke with Hospice nurse who states pt has been evaluated and accepted into the [facility]. NELSON informed hospice nurse that [facility] is able to accept pt to the LTC side of the facility and requested hospice nurse update the hospice manager for continued care coordination moving forward. NELSON met with pt and pt's two daughters and explained options of returning to [facility] in the [facility] care with hospice services or going to the [facility]. Pt and family choosing to go to the [facility] at this time. Physician notified and pt is ready for dc today. Hospice nurse to arrange transportation. Nursing updated. Message sent via [employer] to [facility] informing of pts decision. REA De Paz
--- NOTE | 2025-03-04 14:46 | NURSING ---
Called report to the Inpatient hospice unit [phone] Gave report to Madonna
== END 2025-03-04 15:15 | disposition hospice, inpatient (51) | DRG 872 ==
LOC: ED 15:39 → ICU 16:40
PROVIDERS: Admitting Provider Internal Medicine; Emergency Provider Emergency Medicine; PCP Nurse Practitioner Adult Health; Visit Provider Student in an Organized Health Care Education/Training Program
DX: A41.9 Sepsis, unspecified organism (principal); R18.8 Other ascites; C22.9 Malignant neoplasm of liver, not specified as primary or secondary; N39.0 Urinary tract infection, site not specified; E03.9 Hypothyroidism, unspecified; F32.A Depression, unspecified; D64.9 Anemia, unspecified; K74.69 Other cirrhosis of liver; M06.9 Rheumatoid arthritis, unspecified; I48.91 Unspecified atrial fibrillation; K21.9 Gastro-esophageal reflux disease without esophagitis; F41.9 Anxiety disorder, unspecified; Z79.899 Other long term (current) drug therapy; Z79.52 Long term (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 systemic steroids; Z79.890 Hormone replacement therapy; Z85.828 Personal history of other malignant neoplasm of skin; Z85.3 Personal history of malignant neoplasm of breast; Z90.10 Acquired absence of unspecified breast and nipple
CPT/HCPCS: 36415; 36591; 71046; 74177; 76705; 80053; 81001; 83605; 83735; 83880; 85025; 85610; 85730; 87040; 87077; 87086; 87088; 87186; 87633; 87635; 93005; 99285; A4216; J0696